=== PATIENT | male | born 1985 | race Caucasian/White ===

== ENCOUNTER 2023-06-16 10:00 | Outpatient (OUT) | payer OTHER, SELFPAY ==
--- NOTE | 2023-06-16 | VEIN_ITS ---
Patient: WILL ANDERSON Exam Date: 06/16/2023 : 1985 Gender:M Ordering : DR CROW PRINCE M.D. Admission #: [id number] Family : Order #: [id number] CLICK HERE TO VIEW EXAM RADIOLOGY REPORT PROCEDURE: VC EXT VENOUS REFLUX SYL LMTD COMPARISON: None. INDICATIONS: Pain due to varicose veins of bilateral legs I83.813 TECHNIQUE: Duplex imaging of the lower extremity to assess the deep and superficial venous system for the presence of deep or superficial venous incompetence and to document the location and severity of disease. The study includes evaluation of the great saphenous vein (GSV), anterior accessory saphenous vein (AASV) and small saphenous vein (SSV). Patient scanned in reverse Trendelenburg and standing. FINDINGS: RIGHT LOWER EXTREMITY: Saphenofemoral Junction Reflux: Yes 8.5mm 3.7 sec GSV: Diam (mm) Reflux/ Time (sec) Proximal Thigh 6.6 Yes 3.3 Mid Thigh 5.2 Yes 2.2 Distal Thigh 5.0 Yes 0.9 Prox Calf 2.9 Yes 1.3 Mid Calf 2.8 Yes 0.9 Saphenopopliteal Junction Reflux: 3.6mm Yes 0.8 SSV: Proximal Calf 3.0 No Mid Calf 1.9 Yes 0.9 AASV: Not present Thrombi: No acute or chronic thrombus visualized Compressibility: Normal Flow: Normal Preforator: Dist/med calf 2.6mm with 0s reflux. Mid/lat calf 3.5mm with 0.9s reflux Tech Note: Incompetent SFJ and GSV. Patent varicose vein prox/med calf 3.6mm with 1.0s reflux. Patent varicose vein mid/med thigh 3.1mm with 0.9s reflux. Patent varicose vein mid/med calf 3.1mm with 0s reflux. LEFT LOWER EXTREMITY: Saphenofemoral Junction Reflux: No 5.7 mm 0.5 sec GSV: Diam (mm) Reflux/Time (sec) Proximal Thigh 5.5 Yes 1.2 Mid Thigh 2.9 No Distal Thigh 3.5 Yes 0.7 Prox Calf 3.1 No Mid Calf 2.0 Yes 0.6 Saphenopopliteal Junction Relux: 2.1 mm Yes 1.4 SSV: Proximal Calf 1.4 No Mid Calf 1.4 No AASV: Not present Thrombi: No acute or chronic thrombus visualized Compressibility: Normal Flow: Normal Spreader: Dist/med calf 2.0mm with 0s reflux. Tech Note: Incompetent SFJ and GSV. Patent varicose vein mid/med calf 1.7mm with 1.2s reflux. Patent varicose vein mid/med thigh 2.8mm with 1.2s reflux. Patent varicose vein 3.1mm with 0s reflux. CONCLUSION: 1. Moderate right great saphenous vein venous insufficiency with dilatation and saphenofemoral junction reflux 2. Incompetent right lateral calf commercial title examiner vein with associated ulceration 3. Mild left great saphenous vein venous insufficiency without dilatation 4. Mild right small saphenous vein venous insufficiency without dilatation 5. Right leg incompetent varicose veins Dictated by: Crow Prince MD on 06/16/2023 at 15:11 Approved by: Crow Prince MD on 06/16/2023 at 15:18
--- NOTE | 2023-06-16 | VEIN_ITS ---
Patient: WILL ANDERSON Exam Date: 06/16/2023 : 1985 Gender:M Ordering : DR CROW PRINCE M.D. Admission #: [id number] Family : Order #: [id number] CLICK HERE TO VIEW EXAM RADIOLOGY REPORT PROCEDURE: [facility] COMPREHENSIVE VEIN CENTER - OFFICE VISIT INITIAL COMPARISON: None. PROGRESS NOTES: 37-year-old male who presents with a 2 year history of lower extremity pain swelling and varicose veins. The patient has had multiple episodes of cellulitis with development of a nonhealing ulcer approximately 10 months ago along the lateral right lower leg. The patient has been seen in the wound clinic for approximately 5 months with no significant improvement in the wound. The patient complains of subcutaneous edema and throbbing heaviness exacerbated by prolonged sitting and standing, partially relieved by rest, leg elevation and compression stockings which she has worn for approximately 6 months. The patient denies any signs and symptoms to suggest arterial ischemia. The patient describes a family history significant for varicose veins in his mother. Type 2 diabetes in his father. The patient has a past medical history significant for alcohol abuse, discontinuing 2 years ago. The patient quit smoking 15 years ago. No current illicit drug use. The patient currently has significant liver disease having been diagnosed with cirrhosis by biopsy. The patient is currently seen by a leather products supervisor/hepatology in [place]. No history of deep venous thrombus or pulmonary embolus. See separate history and physical for medication list. No prior treatment for varicose or spider veins. Nursing notes were reviewed. After history and physical exam I discussed at length the pathophysiology of venous hypertension and possible treatments, therapies and strategies available. We discussed at length the importance of elevating the lower extremities above the level of the heart, increased physical activity and compression stocking use. I discussed with the patient that his swelling was likely multifactorial and related to his liver disease possible lymphedema as well as venous disease being a contributing factor. I am hopeful that we will have good healing of his ulcer related to in associated incompetent perforating vein. Intravenous laser ablation and micro foam chemical ablation were discussed. Risks benefits and alternatives were discussed in the patient's questions were answered Ultrasound venous reflux study performed the same day was discussed at length with the patient. The report demonstrates moderate right great saphenous vein reflux and dairy science teacher vein. PHYSICAL EXAM: The right leg demonstrates pitting edema, 1 cm full thickness ulcer lateral mid right calf. Extensive hemosiderin staining. Scattered varicose veins. The left leg demonstrates mild subcutaneous edema and hemosiderin staining. Both thighs, legs and feet were symmetrically warm to the touch. Good posterior tibial and dorsalis pedis pulses were present bilaterally. VEIN/VC Facility EST Comprehensive IMPRESSION: 1. Moderate right great saphenous vein venous insufficiency with dilatation 2. Moderate right lower extremity varicose veins 3. Moderate right and mild left lower extremity subcutaneous edema 4. No definite flow significant arterial disease 5. CEAP: C6, Ep, Asp, Pr PLAN: 1. Endovenous laser ablation right great saphenous vein followed by right at incompetent dairy science teacher vein 2. Micro foam chemical ablation right leg incompetent varicose veins 3. Long-term use of bilateral knee high 4. 20-30 mm compression stockings 5. Elevated legs and increased physical activity for symptomatic relief Nurse notes, history and physical were reviewed and confirmed, see attached forms. The nurse was present throughout the physical exam and consultation Dictated by: Crow Prince MD on 06/16/2023 at 15:19 Approved by: Crow Prince MD on 06/16/2023 at 15:41
== END 2023-06-16 10:01 | disposition home or self-care (01) ==
LOC: VC 10:00
PROVIDERS: PCP Radiology Diagnostic Radiology; Visit Provider Radiology Diagnostic Radiology
DX: I83.813 Varicose veins of bilateral lower extremities with pain (principal)
CPT/HCPCS: 93970; G0463

== ENCOUNTER 2023-07-08 08:07 | Outpatient (OUT) | payer OTHER, SELFPAY ==
--- NOTE | 2023-07-08 | VEIN_ITS ---
[address] [address] Patient Name: WILL ANDERSON MRN: [id number] date: 1985 Sex: M Assigned Patient Location: Current Patient Location: Accession/Order Number: [id number] Exam Date: 07/08/2023 08:09 Report Date: 07/08/2023 09:35 At the request of: JOHN ANDREA Procedure: VC Endovenous Ablation 1VeinRT EXAMINATION: VC Endovenous Ablation 1VeinRT HISTORY: Pain due to varicose veins of bilateral legs I83.813 COMPARISON: No relevant comparison available. TECHNIQUE: The risks and benefits of the procedure had been previously discussed, and were rediscussed at length. Informed written consent was obtained. Felice Collazo and Marlo Foster assisted. Time out procedure was performed. The right lower extremity was prepared and draped in the usual sterile fashion to allow knee flexion in the sterile field. Duplex ultrasound probe was draped in a sterile cover, sterile transmission gel was used. Venous mapping was performed with the areas of dilation and large tributaries marked. The total length was 57 cm from the entry 15 cm above the medial malleolus to 3 cm below the saphenofemoral junction. The diameter of the greater saphenous vein ranged from 4-7 mm. A 30 gauge needle and 1% buffered lidocaine was used to anesthetize the entry site. A 4 mm incision was made with a scalpel and the saphenous vein was entered percutaneously under direct ultrasound guidance with a micropuncture set, a single stick was successful in gaining access. A micro-guide wire was inserted and the needle removed. A micro-set including a dilator was inserted over the microwire and the needle and dilator were removed. A 0.018 guide wire was inserted through the micro-set and threaded through the saphenous vein to the saphenofemoral junction. The dilator was removed and an introducer sheath was inserted over the wire until the end of the sheath entered the saphenofemoral junction. The dilator and wire were removed and the 600 micron fiber was introduced and placed and positioned so that it extended beyond the sheath and was 3 cm peripheral to the saphenofemoral femoral junction. Final position of the fiber was determined by ultrasound guidance and duplex imaging. Tumescent anesthetic was delivered by ultrasound guidance. 425 cc of fluid was delivered along the entire course of the saphenous vein. The solution consisted of 1000 cc of normal saline with 40 mL of 1% lidocaine and 20 mL of sodium bicarbonate. A final positioning check was made. The energy source was turned on by means of the foot pedal and the fiber and sheath were withdrawn. The total number of Joules delivered was 3133. The laser was active for 392 seconds under continuous pulse, average laser use of 8 J. Laser start time 9:15 AM 07/08/23. Laser stop time 9:27 AM 07/08/23. A duplex ultrasound revealed compressibility and flow at the saphenofemoral junction immediately after the procedure. Hemostasis at the access site was achieved. The skin incision of the saphenous vein was closed with a 4 x 4. A compression stocking was applied. Postop instructions were given. A follow up appointment was recommended and scheduled. The patient tolerated the procedure well and was discharged in good condition . VEIN/VC Endovenous Ablation 1VeinRT IMPRESSION: Technically successful endovenous laser ablation of the right great saphenous vein Electronically authenticated by: JOHN ANDREA Date: 07/08/2023 09:35
[2023-07-08] MEDS: 0.9 % SODIUM CHLORIDE 500 ML, LIDOCAINE HCL 20 ML, SODIUM BICARBONATE 10 MEQ INJ (08:10)
[2023-07-08] MEDS: LIDOCAINE HCL 1% 100 MG/10 ML MDV INJ (08:10)
== END 2023-07-08 08:08 | disposition home or self-care (01) ==
LOC: VC 08:07
PROVIDERS: PCP Radiology Diagnostic Radiology; Visit Provider Radiology Diagnostic Radiology
DX: I83.813 Varicose veins of bilateral lower extremities with pain (principal)
CPT/HCPCS: 36478

== ENCOUNTER 2023-07-14 09:26 | Outpatient (OUT) | payer OTHER, SELFPAY ==
--- NOTE | 2023-07-14 09:27 | VEIN_ITS ---
Patient: WILL ANDERSON Exam Date: 07/14/2023 : 1985 Gender:M Ordering : DR CROW PRINCE M.D. Admission #: [id number] Family : Order #: [id number] CLICK HERE TO VIEW EXAM RADIOLOGY REPORT PROCEDURE: [facility] FACILITY EST LMTD VEIN CENTER - OFFICE VISIT FOLLOW UP COMPARISON: None. PROGRESS NOTES: The patient reports severe pain related to the use of the compression stocking following intravenous laser ablation right great saphenous vein the otherwise not have pain once he the compression stocking. The patient did not take oral analgesics. The patient did have concern over low potassium and asked me to prescribe potassium tablets, in light of me not being as primary caregiver or involved in his liver disease, I told him that needed to consult with his primary care physician or his reception for treatment and evaluation. 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 Physical exam demonstrates no areas of bruising. Thrombosed right great saphenous vein can be partially palpated. Significant edema below the knee remains period Review of the ultrasound performed the same day demonstrates occlusive thrombus extending throughout the treated right great saphenous vein with heat induced thrombus 1.7 cm from the saphenofemoral junction. The patient expressed a desire to proceed with treatment of incompetent right perforating vein with a corresponding nonhealing venous stasis ulceration. The patient will schedule when it is convenient for him. VEIN/VC Facility EST LMTD IMPRESSION: 1. Successful ablation of the right great saphenous vein 2. Persistent incompetent right leg perforating vein. PLAN: Intravenous laser ablation right leg incompetent perforating vein Nurse notes, history and physical were reviewed and confirmed, see attached forms. The nurse was present throughout the physical exam and consultation Dictated by: Crow Prince MD on 07/14/2023 at 10:35 Approved by: Crow Prince MD on 07/14/2023 at 10:44
--- NOTE | 2023-07-14 09:27 | VEIN_ITS ---
Patient: WILL ANDERSON Exam Date: 07/14/2023 : 1985 Gender:M Ordering : DR CROW PRINCE M.D. Admission #: [id number] Family : Order #: [id number] CLICK HERE TO VIEW EXAM RADIOLOGY REPORT PROCEDURE: VC EXT VENOUS RT LMTD COMPARISON: None. INDICATIONS: I80.01 Phlebitis of superficial veins of rt lower extremity TECHNIQUE: Lower extremity fernandez scale and Duplex Doppler evaluation of the deep venous system from the inguinal ligament through the calf veins. FINDINGS: REGION: Right lower extremity. THROMBI: Negative for DVT. Heat induced thrombus is visualized 1.7 cm from the SFJ. The heat induced thrombus extends from groin to proximal calf. COMPRESSIBILITY: Non-compressible segments corresponding to thrombus. FLOW: Absent flow corresponding to thrombus CONCLUSION: Post ablation occlusion of the right great saphenous vein with heat induced thrombus 1.7 cm from the saphenofemoral junction Dictated by: Crow Prince MD on 07/14/2023 at 09:46 Approved by: Crow Prince MD on 07/14/2023 at 09:47
== END 2023-07-14 09:27 | disposition home or self-care (01) ==
LOC: VC 09:26
PROVIDERS: PCP Radiology Diagnostic Radiology; Visit Provider Radiology Diagnostic Radiology
DX: I80.01 Phlebitis and thrombophlebitis of superficial vessels of right lower extremity (principal)
CPT/HCPCS: 93971; G0463

== ENCOUNTER 2023-07-28 08:26 | Outpatient (OUT) | payer OTHER, SELFPAY ==
--- NOTE | 2023-07-28 08:28 | VEIN_ITS ---
[address] [address] Patient Name: WILL ANDERSON MRN: [id number] date: 1985 Sex: M Assigned Patient Location: Current Patient Location: Accession/Order Number: [id number] Exam Date: 07/28/2023 08:30 Report Date: 07/28/2023 10:07 At the request of: JOHN ANDREA Procedure: VC Endovenous Perf Ablation RT EXAMINATION: VC Endovenous Perf Ablation RT COMPARISON: INDICATIONS: I83.813 Painful varicose veins of bilat lower extremities OPERATIVE REPORT: Diagnosis: Superficial venous reflux, incompetent perforating veins Procedure: Endovenous laser ablation of the right transfer operator(s) Procedure: The patient was positioned supine on the table and the leg was prepped and draped to allow for visualization during venous access. A sterile cover was draped over a 16 mhz ultrasound probe. Venous mapping was performed prior to the procedure noting location and size of vessel(s). Switchboard Receptionist vein 1: Mid lateral lower right leg. The diameter of the vein ranged from 3.5 mm's below the muscular fascia to 3.5 mm's at the entry point. Using a 30 gauge needle the entry site was anesthetized with 2 cc of 1% buffered lidocaine. Access was gained percutaneously, with a 21-gauge needle, into the transfer operator vein under ultrasound guidance. The needle was advanced into the desired position and the pre-measured 400-micron fiber was then inserted into the needle and locked in place. The position of the fiber was imaged with ultrasound guidance. The fiber tip was visualized to be 10 mm from the deep vessel. An anesthetic solution of 8 cc 1% buffered lidocaine was delivered along the course of the vein under ultrasound guidance using a syringe. A final positioning check of the laser fiber tip was performed. The laser was activated by means of a foot-pedal and the fiber and needle were withdrawn together in accordance to the desired joules per treatment area/spot weld. 3 areas/spot welds were performed, and the total number of joules delivered was 187. The total time of energy delivery was 23 seconds. A duplex ultrasound revealed compressibility and flow of the deep system immediately after the procedure. Hemostasis of the access site was achieved and dressed. A 20-30 mm compression stocking over coban was placed on the treated leg. Post-Op instructions were given, and a follow-up appointment was made. CONCLUSION: 1. Technically successful endovenous laser ablation of a mid lateral right lower leg transfer operator vein. Electronically authenticated by: MARGARET WEEKS Date: 07/28/2023 10:07
[2023-07-28] MEDS: LIDOCAINE HCL 20 ML, SODIUM BICARBONATE 2 MEQ INJ (08:54)
== END 2023-07-28 08:27 | disposition home or self-care (01) ==
LOC: VC 08:27
PROVIDERS: PCP Radiology Diagnostic Radiology; Visit Provider Radiology Diagnostic Radiology
DX: I83.813 Varicose veins of bilateral lower extremities with pain (principal)
CPT/HCPCS: 36478

== ENCOUNTER 2023-08-12 07:58 | Outpatient (OUT) | payer OTHER, SELFPAY ==
--- NOTE | 2023-08-12 07:59 | VEIN_ITS ---
Patient Name: WILL ANDERSON MR#: [id number] : 1985 Exam Date: 08/12/2023 Ordering Doctor: DR CROW PRINCE M.D. RADIOLOGY REPORT PROCEDURE: VC EXT VENOUS RT LMTD COMPARISON: VC EXT VENOUS RT LMTD, 07/14/2023. INDICATIONS: I80.01 Phlebitis of superficial veins of rt lower extremity TECHNIQUE: Lower extremity fernandez scale and Duplex Doppler evaluation of the deep venous system from the inguinal ligament through the calf veins. FINDINGS: REGION: Right lower extremity. THROMBI: Negative for DVT. Heat induced thrombus visualized at mid/lat dry end tester. COMPRESSIBILITY: Non-compressible segments corresponding to thrombus FLOW: Areas of absent flow corresponding to thrombus CONCLUSION: Post ablation occlusion of the treated incompetent right leg dry end tester vein Dictated by: Crow Prince MD on 08/12/2023 at 08:23 Approved by: Crow Prince MD on 08/12/2023 at 08:24
--- NOTE | 2023-08-12 07:59 | VEIN_ITS ---
Patient Name: WILL ANDERSON MR#: [id number] : 1985 Exam Date: 08/12/2023 Ordering Doctor: DR CROW PRINCE M.D. RADIOLOGY REPORT PROCEDURE: [facility] EST LMTD VEIN CENTER - OFFICE VISIT FOLLOW UP [facility] PROGRESS NOTES: The patient reports no significant problems following intravenous laser ablation of incompetent right perforating vein. The patient has been discharged from the [facility] wound [place] for unknown reasons. He has not schedule a follow-up appointment with the [facility] as directed. The patient also has not followed up with a hepatology for his liver failure. The patient does complain of left medial calf pain. The patient has attempted to wear his compression stockings limited by his active right leg ulcer. The patient has followed our recommendations to walk 20-30 minutes once or twice per day since the procedure. Physical exam demonstrates progression of his right leg ulceration now approximately 1.5 cm in diameter and 8 mm deep, this is significantly progressed from the prior exam. Additionally identified is a raised area measuring 2 cm along the medial left mid calf with surrounding erythema. This area appears flocculent and abscess is suspected Review of the ultrasound performed the same day demonstrates occlusive thrombus extending throughout the treated right leg incompetent perforating vein. No deep vein thrombus. At this time the patient's treatments are suspended. I discussed at length with the patient that he needed to follow-up with hepatology as directed by his primary care physician for his liver failure. Given the progression his right leg ulceration, and his new suspected left leg abscess, we arranged for him to be seen by the [facility] wound Center at 1 o'clock on August 12, 2023. This was discussed at length with the patient. I informed the patient that if he did not make his wound Center appointment he should consider going to the emergency room for evaluation of his abscess which is outside the scope of our care for incision and drainage. VEIN/[facility] EST LMTD IMPRESSION: 1. Successful ablation of right leg incompetent perforating vein 2. New left mid medial calf abscess is suspected likely requiring antibiotics and possibly incision and drainage 3. Progression in severity of a right leg ulceration. PLAN: Follow-up with the [facility] wound care center August 12, 2023 at 1 o'clock Nurse notes, history and physical were reviewed and confirmed, see attached forms. The nurse was present throughout the physical exam and consultation Dictated by: Crow Prince MD on 08/12/2023 at 09:15 Approved by: Crow Prince MD on 08/12/2023 at 09:20
--- OUTSIDE RECORDS SUMMARY | 2023-08-26 01:52 | XMS_ITS | CCD ---
Author Name Unknown Address [address] [place] [address] Organization [facility] Care Team Providers Care Sustainability Project Coordinator Name Role Phone Link, Colby Nicholson Primary Care Physician Unavailable Primary Care Provider Unavailabl e Unavailable Primary Care Provider Unavailabl e Unavailable Primary Care Provider Unavailabl Theo Fernandez MD Primary Care Provider Abbey Alvarez MD Unavailable Maria C Day Unavailable Theo Burks MD Primary Care Provider Abbey Alvarez MD Unavailable Gricelda SILVESTRE, Maria C Unavailable [phone] Shamar MULTANI, Marcello Unavailable Maria C Day Unavailable THEO BURKS Primary Care Physician Unavaila ble NONE, XXXX Primary Care Physician Unavailab Jarrod Nettles Unavailable Lisa Lopez Primary Care Physician CLAIRE JOHNSON Attending UnavailCLAIRE Flores Admitting Unavailabl e THEO BURKS Primary Care Unavailable PROVIDER, UNKNOWN Admitting Unavailable PROVIDER, UNKNOWN Attending Unavailable THEO BURKS Primary Care Unavailable PROVIDER, UNKNOWN Attending Unavailable MARIA C FAUSTIN Referring Unavailable PROVIDER, UNKNOWN Admitting Unavailable PROVIDER, UNKNOWN Attending Unavailable PROVIDER, UNKNOWN Admitting Unavailable THEO BURKS Primary Care Unavailable PROVIDER, UNKNOWN Attending Unavailable PROVIDER, UNKNOWN Admitting Unavailable THEO BURKS Primary Care Unavailable PROVIDER, UNKNOWN Attending Unavailable PROVIDER, UNKNOWN Admitting Unavailable BURKS, THEO Primary Care Unavailable PROVIDER, UNKNOWN Attending Unavailable PROVIDER, UNKNOWN Admitting Unavailable PARVIZ BURKSHERINE Primary Care Unavailable PROVIDER, UNKNOWN Admitting Unavailable PARVIZ BURKSHERINE Primary Care Unavailable ANN-MARIE BRAY Attending Unavailable PROVIDER, UNKNOWN Attending Unavailable BLACK, TONJEH Referring Unavailable PROVIDER, UNKNOWN Admitting Unavailable PROVIDER, UNKNOWN Attending Unavailable BLACK, TONJEH Referring Unavailable PROVIDER, UNKNOWN Admitting Unavailable PROVIDER, UNKNOWN Attending Unavailable PROVIDER, UNKNOWN Admitting Unavailable PROVIDER, UNKNOWN Attending Unavailable PROVIDER, UNKNOWN Admitting Unavailable PARVIZ BURKSHERINE Primary Care Unavailable PROVIDER, UNKNOWN Attending Unavailable PROVIDER, UNKNOWN Admitting Unavailable CHAD THEO Primary Care Unavailable PROVIDER, UNKNOWN Attending Unavailable PATIENT, SELF Referring Unavailable PARVIZ BURKSHERINE Primary Care Unavailable PROVIDER, UNKNOWN Admitting Unavailable PROVIDER, UNKNOWN Attending Unavailable PROVIDER, UNKNOWN Admitting Unavailable PROVIDER, UNKNOWN Attending Unavailable BLACK, TONJEH Referring Unavailable PROVIDER, UNKNOWN Admitting Unavailable PROVIDER, UNKNOWN Attending Unavailable PROVIDER, UNKNOWN Admitting Unavailable PARVIZ BURKSHERINE Primary Care Unavailable PROVIDER, UNKNOWN Attending Unavailable BLACK, TONJEH Referring Unavailable PROVIDER, UNKNOWN Admitting Unavailable PARVIZ BURKSHERINE Primary Care Unavailable BLACK, TONJEH Referring Unavailable PROVIDER, UNKNOWN Admitting Unavailable PARVIZ BURKSHERINE Primary Care Unavailable PROVIDER, UNKNOWN Attending Unavailable PROVIDER, UNKNOWN Admitting Unavailable PARVIZ BURKSHERINE Primary Care Unavailable PROVIDER, UNKNOWN Attending Unavailable PROVIDER, UNKNOWN Attending Unavailable MARIA C FAUSTIN Referring Unavailable PROVIDER, UNKNOWN Admitting Unavailable PROVIDER, UNKNOWN Admitting Unavailable PROVIDER, UNKNOWN Attending Unavailable BLACK, TONJEH Referring Unavailable PARVIZ BURKSHERINE Primary Care Unavailable PROVIDER, UNKNOWN Attending Unavailable BLACK, TONJEH Referring Unavailable PROVIDER, UNKNOWN Admitting Unavailable PROVIDER, UNKNOWN Attending Unavailable BLACK, TONJEH Referring Unavailable PARVIZ BURKSHERINE Primary Care Unavailable PROVIDER, UNKNOWN Admitting Unavailable PROVIDER, UNKNOWN Attending Unavailable BLACK, TONJEH Referring Unavailable PROVIDER, UNKNOWN Admitting Unavailable PARVIZ BURKSHERINE Primary Care Unavailable REFERRAL, SELF Referring Unavailable Teddy Hitchcock Attending Unavailable Lisa Lopez Referring Unavailable Lisa Lopez Attending Unavailable MoTeddy abad Attending Unavailable Mourany, Teddy Rodarte Referring Unavailable Mourandamaso, Teddy Rodarte Admitting Unavailable Mopollo, Teddy Rodarte Attending Unavailable Mourandamaso, Teddy Rodarte Attending Unavailable Mopollo, Teddy Trinidad. Attending Unavailable Mourany, Teddy Trinidad. Attending Unavailable Mourany, Teddy Rodarte Attending Unavailable Lisa Lopez Admitting Unavailable Lisa Lopez Attending Unavailable Lisa Lopez Attending Unavailable Lisa Lopez Attending Unavailable Teddy Hitchcock Attending Unavailable Teddy Hitchcock Attending Unavailable Teddy Hitchcock Attending Unavailable Martin Reese Attending Unavailable Teddy Luna Attending Unavailable Brent Sanches Attending Unavailable Lisa Lopez Referring Unavailable Mario Evans Attending Unavaila Teddy Goddard Attending Unavailable Teddy Hitchcock Attending Unavailable Teddy Hitchcock Attending Unavailable Teddy Hitchcock Attending Unavailable Teddy Hitchcock Attending Unavailable Teddy Hitchcock Attending Unavailable Teddy Hitchcock Attending Unavailable Teddy Hitchcock Attending Unavailable Allergies Allergy Classification Reported Allergen(s) Allergy Type Date of Onset Reaction(s) Facility (20 sources) Amoxicillin; Translations: [amoxicillin] Drug Allergy 8 Unknown (qualifier value) [facility] (20 sources) Penicillin; Translations: [penicillin] Drug Allergy unknown [facility] (1 source) Substance with penicillin structure and antibacterial mechanism of action (substance) Drug allergy Unknown [employer] Other Medications Current Medications Medication Drug Class(es) Dates Sig (Normalized) Sig (Original) cephalexin 500 mg oral capsule (8 sources) Cephalosporin Antibacterial Start: 08-25-2022 End: 09-01-2022 take 1 capsule by mouth four times daily cephALEXin (KEFLEX) 500 MG capsule Indications: Right leg swelling , Cellulitis, unspecified cellulitis site Take 1 Capsule by mouth 4 times daily for 7 days. 28 Capsule 0 08/25/2022 09/01/2022 Active Start: 08-15-2022 End: 08-22-2022 take 1 capsule by mouth four times daily cephALEXin (KEFLEX) 500 MG capsule Take 1 Capsule by mouth 4 times daily for 7 days. 28 Capsule 0 08/15/2022 08/22/2022 Active clindamycin 300 mg oral capsule (20 sources) Lincosamide Antibacterial Start: 02-18-2023 End: 02-25-2023 take 1 capsule by mouth every six hours clindamycin 300 mg oral cap 300 mg = 1 cap(s), Oral, q6hr, X 7 day(s), # 28 cap(s), Refills(s) 0, Pharmacy: [facility] #[id number], 170, cm, 02/18/23 7:51:00 EDT, Height/Length Dosing, 77, kg, 02/18/23 7:51:00 EDT, Weight Dosing Start Date: 02/18/23 Stop Date: 02/25/23 Status: Ordered Start: 02-17-2022 take 2 capsules by m out four times daily clindamycin 150 mg Cap 300 mg = 2 cap(s), Oral, QID, # 56 cap(s), Refills(s) 0, Pharmacy: [id number] [address], 170.2, cm, 02/17/22 12:34:00 EDT, Height/Length Dosing, 78, kg, 02/17/22 12:34:00 EDT, Weight Dosing Start Date: 02/17/22 Status: Ordered Start: 02-17-2022 End: 08-15-2022 clindamycin (CLEOCIN) 150 MG capsule Take by mouth. 0 02/17/2022 08/15/2022 Discontinued (Therapy completed) diclofenac sodium 0.01 mg/mg topical gel (20 sources) Nonsteroidal Anti-inflammatory Drug Start: 12-16-2022 diclofenac (VOLTAREN) 1 % GEL topical gel Indications: Rib pain Apply 4 g topically 4 times daily as needed for Pain (in leg joints). 1 Tube 2 12/16/2022 Active Start: 01-15-2022 End: 04-17-2022 diclofenac (VOLTAREN) 1 % GE L topical gel Apply 2 g topically 4 times daily. 50 g 0 01/17/2022 04/17/2022 Active doxycycline hyclate 100 mg oral capsule (1 source) Tetracycline-class Drug Start: 10-01-2022 End: 10-11-2022 take 1 capsule by mouth twice daily doxycycline (VIBRAMYCIN) 100 MG capsule Indications: Cellulitis, unspecified cellulitis site Take 1 Capsule by mouth 2 times daily for 10 days. 20 Capsule 0 10/01/2022 10/11/2022 Active esomeprazole 40 mg delayed release oral capsule (20 sources) Proton Pump Inhibitor Start: 01-17-2022 take 1 capsule by mouth once daily 30 minutes before breakfast esomeprazole (NEXIUM) 40 MG capsule Take 1 Capsule by mouth daily (30 minutes before breakfast). 28 Capsule 1 01/17/2022 Active Start: 01-15-2022 Start: 01-08-2022 End: 01-15-2022 take 40 mg intravenously twice daily 40 mg, Intravenous Push, 2 TIMES DAILY, First dose (after last modification) on Thu01/10/22 at 2100, Until Discontinued famotidine 20 mg oral tablet (20 sources) Histamine-2 Receptor Antagonist Start: 10-27-2022 take 1 tablet by mouth twice daily famotidine (Pepcid) 20 MG tablet Take 1 Tablet by mouth 2 times daily. 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) take 1 tablet by mouth once daily 90 Tablet 3 07/13/2023 Active Start: 01-08-2022 End: 01-15-2022 take 1 mg intravenously once daily 1 mg, Intravenous P ush, DAILY, First dose on Thu01/08/22 at 1430, Until Discontinued furosemide 20 mg oral tablet (20 sources) Loop Diuretic Start: 07-24-2023 take 1 tablet by mouth once daily furosemide 20 mg Tab 20 mg = 1 tab(s), Oral, Daily, Refills(s) 0 Start Date: 07/24/23 Status: Ordered Start: 08-25-2022 End: 01-25-2023 take 1 tablet by mouth once daily furosemide (LASIX) 20 MG tablet take 1 tablet by mouth once daily 90 Tablet 3 12/05/2022 Active gabapentin 300 mg oral capsule (3 sources) Anti-epileptic Agent Start: 07-24-2023 take 1 capsule by mouth twice daily gabapentin 300 mg Cap 300 mg = 1 cap(s), Oral, BID, # 60 cap(s), Refills(s) 0, Pharmacy: [facility] #[id number], 170, cm, 07/24/23 7:59:00 EST, Height/Length Dosing, 73.5, kg, 07/24/23 7:59:00 EST, Weight Dosing Start Date: 07/24/23 Status: Ordered hydrOXYzine pamoate 25 mg oral capsule (20 sources) Antihistamine Start: 07-24-2023 take 1 capsule by mouth three times daily as needed hydrOXYzine pamoate 25 mg Cap 25 mg = 1 cap(s), Oral, TID, PRN for itching, # 40 cap(s), Refills(s) 0 Start Date: 07/24/23 Status: Ordered Start: 12-16-2022 End: 02-09-2023 take 1 capsule by mouth three times daily as needed hydrOXYzine pamoate (Vistaril) 25 MG capsule Indications: Alcoholic cirrhosis of liver without ascites (HCC) Take 1 Capsule by mouth 3 times daily as needed for Itching. 90 Capsule 3 02/09/2023 Active hydrOXYzine HCl Active lactulose 667 mg/ml oral solution (20 sources) Osmotic Laxative Start: 07-24-2023 take 20 g by mouth four times daily lactulose 10 g/15 mL Oral Syrup 20 gm = 30 mL, Oral, QID, # 480 mL, Refills(s) 0 Start Date: 07/24/23 Status: Ordered Start: 04-24-2023 lactulose 10 g /15 mL oral solution Indications: Iron deficiency anemia, unspecified iron deficiency anemia type , Alcoholic cirrhosis, unspecified whether ascites present (HCC) , Alcoholic cirrhosis of liver without ascites (HCC) take 30 milliliter by mouth four times a day if needed -TITRATE TO 2 TO 3 BOWEL MOVEMENTS/DAY 946 mL 3 04/24/2023 Active Start: 08-14-2022 End: 04-24-2023 lactulose 20 g/30 mL SOLN or al solution Indications: Iron deficiency anemia, unspecified iron deficiency anemia type , Alcoholic cirrhosis, unspecified whether ascites present (HCC) , Alcoholic cirrhosis of liver without ascites (HCC) Take 30 mL by mouth 4 times daily as needed. Titrate 2-3 bowel movements/day 946 mL 3 02/09/2023 04/24/2023 Discontinued Start: 01-17-2022 Start: 01-15-2022 End: 08-14-2022 take 30 mL by mouth twice daily lactulose 20 g/30 mL SOLN oral solution Indications: Alcoholic cirrhosis of liver without ascites (HCC) Take 30 mL by mouth 2 times daily. 450 mL 3 08/08/2022 08/14/2022 Discontinued (Dose adjustment) Start: 01-09-2022 End: 01-15-2022 20 g, NG Tube, 2 TIMES DAILY , First dose (after last modification) on Thu01/09/22 at 2100, Until Discontinued Start: 01-08-2022 End: 01-09-2022 20 g, Oral, 3 TIMES DAILY, F irst dose on Thu01/08/22 at 1430, Until Discontinued Lactulose 10 GM/ 15ML Oral for 7 Days Active lidocaine 0.05 mg/mg medicated patch (20 sources) Antiarrhythmic, Amide Local Anesthetic Start: 12-15-2022 End: 03-06-2023 apply 1 dose transdermal route every twenty-four hours lidocaine (LIDODERM) 5 % patch Indications: Rib pain Place 1 Patch on the skin every 24 hours. 10 Patch 3 03/06/2023 Active Milk thistle extract (3 sources) Start: 07-24-2023 take 1000 mg by mouth once daily Milk Thistle 1,000 mg, Oral, Daily, Refill(s) 0 Start Date: 07/24/23 Status: Ordered Misc DME Prescription (12 sources) Start: 07-24-2023 Misc DME Prescription See Instructions, LiquidIV hydration Start Date: 07/24/23 Status: Ordered Start: 07-24-2023 Misc DME Presc ription See Instructions, Collagen Matrix with ORC and Silver dressing Start Date: 07/24/23 Status: Ordered Start: 07-24-2023 Misc DME Presc ription See Instructions, Roe SAP Dressing 4 x 4 dressing Start Date: 07/24/23 Status: Ordered Start: 07-24-2023 Misc DME Presc ription See Instructions, Muscle & joint balm CBD 880mg Start Date: 07/24/23 Status: Ordered Misc Prescription (3 sources) Start: 07-24-2023 Misc Prescription Bee Venom, Daily Start Date: 07/24/23 Status: Ordered Multiple Vitamin (Tab-A-Scott) TABS (3 sources) Start: 07-13-2023 take 1 tablet by mouth once daily Multiple Vitamin (Tab-A-Scott) TABS 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 Apply thin layer to affected area. 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 120 Tablet 3 02/11/2022 03/13/2022 Discontinued (Dose adjustment) ondansetron 4 mg disintegrating oral tablet (20 sources) Serotonin-3 Receptor Antagonist Start: 02-12-2023 End: 07-13-2023 take 1 tablet by mouth every twelve hours as needed for nausea ondansetron (ZOFRAN-ODT) 4 MG disintegrating tablet Indications: Nausea Take 1 Tablet by mouth every 12 hours as needed for Nausea. Place 1 tablet under tongue as needed for nausea. 30 Tablet 0 07/14/2023 Active Start: 03-13-2022 End: 10-27-2022 take 1 tablet by mouth every twelve hours as needed for nausea ondansetron (ZOFRAN-ODT) 4 MG disintegrating tablet Indications: Nausea Take 1 Tablet by mouth every 12 hours as needed for Nausea. Place 1 tablet under tongue as needed for nausea. 30 Tablet 0 10/27/2022 Active Start: 01-14-2022 take 4 mg intravenou sly every four hours as needed 4 mg, Intravenous Push, EVERY 4 HOURS PRN, Starting on Thu01/14/22 at 0843, Until Discontinued, Vomiting, Nausea oxyCODONE hydrochloride 5 mg oral capsule (1 source) Opioid Agonist Start: 02-18-2023 End: 02-21-2023 take 1 capsule by mouth every six hours as needed for pain oxyCODONE 5 mg Cap 5 mg = 1 cap(s), Oral, q6hr, PRN for pain, X 3 day(s), # 15 cap(s), Refills(s) 0, Pharmacy: [facility] #[id number], 170, cm, 02/18/23 7:51:00 EDT, Height/Length Dosing, 77, kg, 02/18/23 7:51:00 EDT, Weight Dosing Start Date: 02/18/23 Stop Date: 02/21/23 Status: Ordered spironolactone 50 mg oral tablet (20 sources) Aldosterone Antagonist Start: 07-24-2023 take 1 tablet by mouth once daily spironolactone 50 mg Tab 50 mg = 1 tab(s), Oral, Daily, Refills(s) 0 Start Date: 07/24/23 Status: Ordered Start: 08-25-2022 End: 03-16-2023 take 1 tablet by mouth once daily spironolactone (Aldactone) 50 MG tablet Indications: Alcoholic cirrhosis of liver without ascites (HCC) Take 1 Tablet by mouth daily. 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 12 Tablet 3 04/23/2023 07/21/2023 Discontinued (Reorder (*won't e-cancel)) Start: 03-22-2023 End: 04-05-2023 Bactrim D.S. 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 30 Tablet 1 02/13/2022 Active Start: 01-17-2022 End: 03-18-2022 Start: 01-17-2022 End: 03-18-2022 take 1 tablet by mouth once daily sulfamethoxazole-trimethoprim 800-160 MG (BACTRIM DS) 800-160 MG per tablet Take 1 Tablet by mouth daily. 30 Tablet 1 01/17/2022 02/11/2022 Discontinued (Reorder (*won't e-cancel)) Tab-A-Scott oral tablet (3 sources) Start: 07-24-2023 take 1 tablet by mouth once daily Tab-A-Scott oral tablet 1 tab(s), Oral, Daily, Refill(s) 0 Start Date: 07/24/23 Status: Ordered thiamine 100 mg oral tablet (20 sources) Start: 01-16-2022 End: 05-06-2022 take 1 tablet by mouth once daily vitamin B-1 (THIAMINE) 100 MG tablet Indications: Alcoholic cirrhosis of liver without ascites (HCC) Take 1 Tablet by mouth daily. 90 Tablet 3 05/06/2022 Active Start: 01-08-2022 End: 01-15-2022 take 100 mg intravenously once daily 100 mg, Intravenous Push, DAILY, First dose on Thu01/08/22 at 1430, Until Discontinued Zofran ODT 4 mg Tab-Dis (18 sources) Start: 03-22-2023 take 1 tablet by mouth every eight hours as needed for nausea Zofran ODT 4 mg Tab-Dis 4 mg = 1 tab(s), Oral, q8hr, PRN Nausea/Vomiting, # 20 tab(s), Refills(s) 0, Pharmacy: [facility] #[id number], 170, cm, 03/22/23 20:14:00 EDT, Height/Length Dosing, 75.2, kg, 03/22/23 20:14:00 EDT, Weight Dosing Start Date: 03/22/23 Status: Ordered (1 source) Start: 01-17-2022 (3 sources) Start: 01-14-2022 End: 01-19-2022 2 mg, Intravenous, DAILY, 5 doses, First dose on Thu01/14/22 at 1400, Last dose on Thu01/18/22 at 0900, at 125 mL/hr Start: 01-09-2022 End: 01-10-2022 take 70 mg by mouth once daily 70 mg, Oral, DAILY, Fir st dose on Thu01/09/22 at 1900, Until Discontinued Start: 01-08-2022 End: 01-10-2022 10 mg, Intravenous, DAILY, 3 doses, First dose on Thu01/08/22 at 1530, Last dose on Thu01/10/22 at 0900 Completed/Discontinued Medications Medication Drug Class(es) Dates Sig (Normalized) Sig (Original) acetaminophen 32 mg/ml oral solution (1 source) Start: 01-10-2022 500 mg, Oral, EVERY 6 HOURS PRN, Starting on Thu01/10/22 at 2022, Until Discontinued, Mild Pain (pain score 1,2,3), Moderate Pain (pain score 4,5,6) acetaminophen 325 mg / oxyCODONE hydrochloride 5 mg oral tablet (1 source) Opioid Agonist Start: 01-16-2022 End: 01-16-2022 1 Tablet, Oral, ONCE, 1 dose, On Rachel 01/16/22 at 0030 amoxicillin 875 mg / clavulanate 125 mg oral tablet (7 sources) Penicillin-class Antibacterial Start: 08-16-2022 End: 08-26-2022 take 1 tablet by mouth twice daily amoxicillin-clavul anate (Augmentin) 875-125 MG per tablet Indications: Klebsiella pneumoniae infection Take 1 Tablet by mouth 2 times daily for 10 days. 20 Tablet 0 08/16/2022 08/25/2022 Discontinued (Therapy completed) calcium chloride 0.0014 meq/ml / potassium chloride 0.004 meq/ml / sodium chloride 0.103 meq/ml / sodium lactate 0.028 meq/ml injectable solution (1 source) Start: 01-08-2022 End: 01-14-2022 Intravenous, at 150 mL/hr, CONTINUOUS, Starting on Thu01/08/22 at 1830, Until Thu01/14/22 at 0832 cefTRIAXone 2000 mg injection (2 sources) Cephalosporin Antibacterial Start: 01-11-2022 End: 01-12-2022 2,000 mg, Intravenous, EVERY 24 HOURS ANTIBIOTIC, 2 doses, First dose (after last modification) on 01/11/22 at 1700, Last dose on 01/12/22 at 1700 Start: 01-08-2022 End: 01-11-2022 2,000 mg, Intravenous, EVERY 24 HOURS ANTIBIOTIC, First dose on Thu01/08/22 at 1500, Until Discontinued chlorhexidine gluconate 1.2 mg/ml mouthwash (11 sources) Start: 03-22-2008 End: 05-06-2022 chlorhexidine (PERIDEX) 0.12 % solution Indications: Open fracture of angle of jaw (HCC) Take by mouth. Take one capful of solution and place on provided syringe and rinse open area inside of mouth twice a day. 1 bottle 3 03/22/2008 05/06/2022 Discontinued (Therapy completed) 168 hr cloNIDine 0.10037 mg/hr transdermal system (1 source) Central alpha-2 Adrenergic Agonist Start: 01-09-2022 End: 01-17-2022 0.1 mg, Transdermal, EVERY 7 DAYS, First dose on Thu01/09/22 at 1400, Until Discontinued 100 ml dexmedetomidine 0.004 mg/ml injection (1 source) Central alpha-2 Adrenergic Agonist Start: 01-08-2022 End: 01-10-2022 take 3.4-23.5 mL intravenously every hour 0.2-1.4 mcg/kg/hr 67 kg (3.35-23.45 mL/hr, rounded to 3.4-23.5 mL/hr), Intravenous, CONTINUOUS, Starting on Thu01/08/22 at 2130, Until Thu01/10/22 at 1155 Drug or medicament (substance) (3 sources) Start: 01-10-2022 End: 01-15-2022 take 3.4-23.5 mL intravenously every hour 0.2-1.4 mcg/kg/hr 67 kg (3.35-23.45 mL/hr, rounded to 3.4-23.5 mL/hr), Intravenous, CONTINUOUS, Starting on Thu01/10/22 at 1200, Until Thu01/15/22 at 0959 Start: 01-09-2022 End: 01-13-2022 120 mL, NG Tube, 4 times mario ly ENAR, First dose on Thu01/09/22 at 1600, Until Discontinued Start: 01-09-2022 End: 01-15-2022 NG Tube, at 20-60 mL/hr, CON TINUOUS, Starting on Thu01/09/22 at 1400, Until Thu01/15/22 at 0952 Tube Feeding: No Meal Tray Tube feeding formula: Peptamen 1.5 1 ml haloperidol 5 mg/ml injection (1 source) Typical Antipsychotic Start: 01-08-2022 End: 01-08-2022 inject 1 dose by intramuscular injection once 5 mg, Intramuscular, ONCE, 1 dose, On Thu01/08/22 at 2230 ibuprofen 800 mg oral tablet (1 source) Nonsteroidal Anti-inflammatory Drug Start: 03-29-2008 End: 01-17-2022 insulin lispro 100 unt/ml injectable solution (2 sources) Insulin Analog Start: 01-17-2022 inject 1-7 [IU] by subcutaneous injection three times daily before mealtime 1-7 Units, Subcutaneous, 3 TIMES DAILY BEFORE MEALS, First dose on Thu01/17/22 at 0800, Until Discontinued Start: 01-13-2022 End: 01-17-2022 inject 1-7 [IU] by subcutaneous injection every six hours 1-7 Units, Subcutaneous, Every 6 hours, First dose (after last modification) on Thu01/13/22 at 2200, Until Discontinued LORazepam 0.5 mg oral tablet (6 sources) Benzodiazepine Start: 01-17-2022 take 0.5 mg by mouth every six hours as needed 0.5 mg, Oral, EVERY 6 HOURS PRN, Starting on Thu01/17/22 at 1435, Until Discontinued, Anxiety Start: 01-10-2022 End: 01-15-2022 2 mg, Intravenous Push, EVER Y 2 HOURS PRN, Starting on Thu01/10/22 at 1823, Until Thu01/15/22 at 0959, Anxiety, CIWA 9-12 and SBP greater than 165 mmHg and/or HR greater than 100 beats per minute, or CIWA 13 and above Start: 01-09-2022 End: 01-10-2022 take 1 mg intravenously every two hours as needed for anxiety 1 mg, Intravenous Push, EVERY 2 HOURS PRN, Starting on Thu01/09/22 at 1344, Until Thu01/10/22 at 1823, Anxiety, CIWA 9-12 and SBP greater than 165 mmHg and/or HR greater than 100 beats per minute, or CIWA 13 and above Start: 01-08-2022 End: 01-08-2022 take 1 dose intravenously once 2 mg, Intravenous Push, ONCE, 1 dose, On Thu01/08/22 at 2230 Start: 01-08-2022 End: 01-08-2022 take 1 dose intravenously once 2 mg, Intravenous Push, ONCE, 1 dose, On Thu01/08/22 at 2200 Start: 01-08-2022 End: 01-09-2022 2 mg, Oral, EVERY 2 HOURS PA N, Starting on Thu01/08/22 at 1755, Until Thu01/09/22 at 1346, Anxiety, CIWA 9-12 and SBP greater than 165 mmHg and/or HR greater than 100 beats per minute, or CIWA 13 and above 50 ml magnesium sulfate 40 mg/ml injection (1 source) Start: 01-10-2022 End: 05-06-2022 2 g (2,000 mg), Intravenous, ONCE, 1 dose, On Thu01/10/22 at 1900 metoclopramide 10 mg oral tablet (2 sources) Dopamine-2 Receptor Antagonist Start: 03-15-2008 End: 01-17-2022 Start: 03-15-2008 End: 01-17-2022 1 ml morphine sulfate 4 mg/ml cartridge (1 source) Opioid Agonist Start: 01-10-2022 End: 01-10-2022 take 1 dose intravenously once 2 mg, Intravenous Push, ONCE, 1 dose, On Thu01/10/22 at 2030 Multiple Vitamin (Multi-Vitamins) tablet (20 sources) Start: 05-06-2022 End: 07-13-2023 take 1 tablet by mouth once daily Multiple Vitamin (Multi-Vitamins) tablet 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 90 Tablet 3 05/06/2022 Active Start: 01-17-2022 End: 05-06-2022 take 1 tablet by mouth once daily Multiple Vitamin (Multi-Vitamins) tablet Take 1 Tablet by mouth daily. 30 Tablet 3 01/17/2022 05/06/2022 Discontinued (Reorder (*won't e-cancel)) Start: 01-17-2022 take 1 tablet by patricia th once daily Multiple Vitamin (Multi-Vitamins) tablet Take 1 Tablet by mouth daily. 30 Tablet 3 01/17/2022 Active nitrofurantoin, macrocrystals 25 mg / nitrofurantoin, monohydrate 75 mg oral capsule (6 sources) Nitrofuran Antibacterial Start: 08-15-2022 End: 08-25-2022 take 1 capsule by mouth twice daily nitrofurantoin monohydrate macrocrystal (MACROBID) 100 MG capsule Indications: Urinary tract infection without hematuria, site unspecified Take 1 Capsule by mouth 2 times daily for 10 days. 20 Capsule 0 08/15/2022 08/16/2022 Discontinued (Changing therapy) Potassium Chloride (20 sources) Start: 07-24-2023 take 1 tablet by mouth twice daily Potassium Chloride (Kgq-Iayu-Gwt M20) 20 mEq oral tablet, extended release 20 mEq = 1 tab(s), Oral, BID, # 30 tab(s), Refills(s) 3, [facility]: [id number], 170, cm, 07/24/23 7:59:00 EST, Height/Length Dosing, 73.5, kg, 07/24/23 7:59:00 EST, Weight Dosing Start Date: 07/24/23 Status: Ordered Start: 11-14-2022 take 1 tablet by [facility] once daily potassium chloride SA (K-DUR) 20 MEQ controlled release tablet Indications: Hypokalemia Take 1 Tablet by mouth daily. 10 Tablet 0 11/14/2022 Active Start: 01-15-2022 End: 01-15-2022 take 1 dose by mouth once 40 mEq, Oral, ONCE, 1 dose, On Thu01/15/22 at 0600 Start: 01-13-2022 End: 01-13-2022 40 mEq, G Tube, ONCE, 1 dose , On Thu01/13/22 at 0500 Start: 01-12-2022 End: 01-13-2022 take 1 dose by mouth once 40 mEq, Oral, ONCE, 1 dose, On Thu01/13/22 at 0700 Start: 01-12-2022 End: 01-12-2022 40 mEq, NG Tube, ONCE, 1 dos e, On 01/12/22 at 0430 prednisoLONE 3 mg/ml oral solution (1 source) Corticosteroid Start: 01-11-2022 take 70 mg by mouth once daily 70 mg, Oral, DAILY, First dose on 01/11/22 at 0900, Until Discontinued predniSONE 10 mg oral tablet (11 sources) Start: 01-17-2022 End: 05-06-2022 predniSONE (DELTASONE) 10 MG tablet Take 70mg daily for 14 days (until 01/21/22), and then 60mg daily until seen by hematology. 200 Tablet 2 01/17/2022 05/06/2022 Discontinued (Therapy completed) rifAXIMin 550 mg oral tablet (1 source) Rifamycin Antibacterial Start: 01-12-2022 take 550 mg by mouth twice daily 550 mg, Oral, 2 TIMES DAILY, First dose (after last modification) on 01/12/22 at 2100, Until Discontinued traMADol hydrochloride 50 mg oral tablet (2 sources) Opioid Agonist Start: 01-16-2022 50 mg, Oral, EVERY 6 HOURS PRN, Starting on Rachel 01/16/22 at 0845, Until Discontinued, Moderate Pain (pain score 4,5,6), Severe Pain (pain score 7,8,9,10) Start: 01-15-2022 End: 01-15-2022 take 1 dose by mouth once 50 mg, Oral, ONCE, 1 dose, O n 01/15/22 at 1800 vitamin b12 0.5 mg oral tablet (1 source) Vitamin B12 Start: 01-09-2022 take 500 ug by mouth once daily 500 mcg, Oral, DAILY, First dose on Rachel 01/09/22 at 1400, Until Discontinued (1 source) Start: 01-09-2022 take 15 mL by mouth once daily 15 mL, Oral, DAILY, First dose on Rachel 01/09/22 at 1400, Until Discontinued Problems Active Problems Problem Classification Problem Date Documented Date Episodic/Chronic Alcohol-related disorders (20 sources) Alcohol abuse; Translations: [Alcohol abuse, uncomplicated] Onset: 01-07-2022 Resolved: 01-12-2023 Chronic Bacterial infection; unspecified site (1 source) Bacterial infection due to Klebsiella pneumoniae; Translations: [Other bacterial infections of unspecified site] Episodic Chronic ulcer of skin (1 source) 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; Translations: [Ulcer of right leg] Chronic Coagulation and hemorrhagic disorders (20 sources) Thrombocytopenic disorder; Translations: [Thrombocytopenia, unspecified] Onset: 01-07-2022 Chronic Deficiency and other anemia (20 sources) Warm autoimmune hemolytic anemia; 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 Deficiency and other anemia (20 sources) Hemolytic anemia; Translations: [Hereditary hemolytic anemia, unspecified] 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-2022 Chronic Deficiency and other anemia (5 sources) Anemia; Translations: [Anemia, unspecified] Onset: 01-07-2022 Episodic Deficiency and other anemia (7 sources) Iron deficiency anemia; Translations: [Iron deficiency anemia, unspecified] Episodic Deficiency and other anemia (2 sources) Deficiency and other anemia; 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] 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-2022 Diabetes mellitus without complication (4 sources) Impaired fasting glycemia; Translations: [Impaired fasting glucose] Onset: 07-24-2023 Episodic E Codes: Natural/environment (1 source) Bite of nonvenomous arthropod; Translations: [Bitten or stung by nonvenomous insect and other nonvenomous arthropods, initial encounter] Onset: 06-19-2023 Episodic Fluid and electrolyte disorders (6 sources) Acidosis; Translations: [Acidosis] Onset: 01-07-2022 Episodic Genitourinary symptoms and ill-defined conditions (2 sources) Dysuria; Translations: [Dysuria] Episodic Immunizations and screening for infectious disease (2 sources) Patient encounter status; Translations: [Encounter for laboratory testing for severe acute respiratory syndrome coronavirus 2 (SARS-CoV-2)] Episodic Inflammatory conditions of male genital organs (1 source) Inflammation of scrotum; Translations: [Inflammatory disorders of scrotum] Onset: 02-17-2022 Episodic Multiple myeloma (1 source) Multiple myeloma; Translations: [Multiple myeloma not having achieved remission] 04-21-2023 Chronic Nausea and vomiting (9 sources) Nausea and vomiting; Translations: [Nausea with vomiting, unspecified] Onset: 10-27-2022 Episodic Nutritional deficiencies (20 sources) Vitamin D deficiency; Translations: [Vitamin D deficiency, unspecified] Onset: 10-30-2011 08-25-2022 Chronic Open wounds of extremities (1 source) Unspecified open wound, right lower leg, initial encounter Episodic Other aftercare (3 sources) Antibiotic prophylaxis indicated; Translations: [vermin exterminator (current) use of antibiotics] Episodic Other aftercare (4 sources) Drug therapy status; Translations: [Other senior living (current) drug therapy] Episodic Other aftercare (1 source) 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; Translations: [Other senior living (current) drug therapy] Onset: 04-21-2023 Episodic Other aftercare (1 source) long-term (current) use of antibiotics; Translations: [vermin exterminator (current) use of antibiotics] Onset: 04-21-2023 Episodic Other aftercare (1 source) Long-term current use of drug therapy; Translations: [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] Onset: 07-24-2023 Episodic Other circulatory disease (1 source) Elevated blood-pressure reading without diagnosis of hypertension; Translations: [Elevated blood-pressure reading, without diagnosis of hypertension] Onset: 07-24-2023 Episodic Other circulatory disease (3 sources) Elevated blood pressure 07-24-2023 Episodic Other connective tissue disease (1 source) Prepatellar bursitis of right knee; Translations: [Prepatellar bursitis, right knee] Episodic Other connective tissue disease (1 source) Swelling of lower limb; Translations: [Other specified soft tissue disorders] Episodic Other connective tissue disease (1 source) Swelling of right lower limb; Translations: [Other specified soft tissue disorders] Episodic Other connective tissue disease (1 source) Muscle finding; Translations: [Myalgia, unspecified site] Episodic Other connective tissue disease (1 source) Pain in right lower limb; Translations: [Pain in right leg] Onset: 02-18-2023 Episodic Other endocrine disorders (1 source) Hypoglycemia; Translations: [Hypoglycemia, unspecified] Chronic Other hematologic conditions (20 sources) Macrocytosis; Translations: [Other specified diseases of blood and blood-forming organs] Onset: 02-12-2022 02-12-2022 Chronic Other hematologic conditions (1 source) Abnormal presence of albumin; Translations: [Abnormality of albumin] Onset: 07-24-2023 Episodic Other injuries and conditions due to external causes (1 source) Traumatic AND/OR non-traumatic injury; Translations: [Other injury of unspecified body region, initial encounter] Onset: 01-07-2022 Episodic Other liver diseases (1 source) Cirrhosis of liver; Translations: [Unspecified cirrhosis of liver] Onset: 01-07-2022 Chronic Other liver diseases (1 source) Hepatic fibrosis; Translations: [Liver fibrosis] Chronic Other liver diseases (1 source) Hepatic failure; Translations: [Acute and subacute hepatic failure without coma] Onset: 01-07-2022 Episodic Other liver diseases (4 sources) Elevated liver enzymes level; Translations: [Abnormal levels of other serum enzymes] Episodic Other liver diseases (1 source) Enzyme level - finding; Translations: [Abnormal levels of other serum enzymes] Onset: 07-24-2023 Episodic Other lower respiratory disease (3 sources) Rib pain; Translations: [Pleurodynia] Episodic Other non-traumatic joint disorders (1 source) Swelling of bilateral feet; Translations: [Effusion, right ankle] Episodic Other nutritional; endocrine; and metabolic disorders (20 sources) Hyperbilirubinemia; Translations: [Other disorders of bilirubin metabolism] Onset: 10-31-2022 Chronic Other nutritional; endocrine; and metabolic disorders (1 source) Iron overload; Translations: [Other disorders of iron metabolism] Chronic Other nutritional; endocrine; and metabolic disorders (1 source) Other disorders of bilirubin metabolism; Translations: [Other disorders of bilirubin metabolism] Onset: 10-31-2022 Chronic Other nutritional; endocrine; and metabolic disorders (11 sources) Overweight in adulthood with body mass index of 25 or more but less than 30; Translations: [Body mass index (BMI) 27.0-27.9, adult] Onset: 07-24-2023 Episodic Other screening for suspected conditions (not mental disorders or infectious disease) (20 sources) No current problems or disability; Translations: [Coag./bleeding tests abnormal] Onset: 07-24-2023 02-23-2014 Episodic Pancreatic disorders (not diabetes) (1 source) Acute pancreatitis; Translations: [Acute pancreatitis without necrosis or infection, unspecified] Onset: 01-07-2022 Episodic Residual codes; unclassified (2 sources) Localized edema; Translations: [Localized edema] Onset: 01-07-2022 Episodic Residual codes; unclassified (2 sources) Edema of lower extremity; Translations: [Localized edema] Episodic Residual codes; unclassified (1 source) Tobacco user; Translations: [Tobacco use] Onset: 07-24-2023 Episodic Residual codes; unclassified (1 source) Current drinker; Translations: [Alcohol use, unspecified, in remission] Onset: 07-24-2023 Episodic Residual codes; unclassified (3 sources) User of smokeless tobacco 07-24-2023 Episodic Skin and subcutaneous tissue infections (12 sources) Cellulitis of right lower limb; Translations: [Cellulitis of right lower limb] Onset: 08-29-2022 Episodic Sprains and strains (1 source) Injury of shoulder and upper arm; Translations: [Strain of muscle, fascia and tendon of other parts of biceps, left arm, initial encounter] Episodic Superficial injury; contusion (1 source) Insect bite, nonvenomous, of thigh; Translations: [Insect bite (nonvenomous), right thigh, initial encounter] Onset: 06-19-2023 Episodic Unclassified (3 sources) Patient encounter status 07-24-2023 Unclassified (3 sources) Serum albumin below reference range 07-24-2023 Urinary tract infections (4 sources) Urinary tract infectious disease; Translations: [Urinary tract infection, site not specified] Episodic Past or Other Problems Problem Classification Problem Date Documented Date Episodic/Chronic Deficiency and other anemia (1 source) Iron deficiency anemia, unspecified; Translations: [Iron deficiency anemia, unspecified] Onset: 08-21-2022 Episodic Other fractures (20 sources) Compression fracture of lumbar spine; Translations: [Wedge compression fracture of unspecified lumbar vertebra, initial encounter for closed fracture] Onset: 08-24-2013 08-25-2022 Episodic Other injuries and conditions due to external causes (20 sources) Hematoma; Translations: [Other injury of unspecified body region, initial encounter] Onset: 01-08-2022 Episodic Other liver diseases (20 sources) Jaundice; Translations: [Unspecified jaundice] Onset: 01-07-2022 Resolved: 08-25-2022 Episodic Other nutritional; endocrine; and metabolic disorders (1 source) Body mass index (BMI) 26.0-26.9, adult; Translations: [Body mass index (BMI) 26.0-26.9, adult] Onset: 10-27-2022 Episodic Residual codes; unclassified (20 sources) 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; Translations: [Genetic susceptibility to other disease] Onset: 10-29-2011 08-25-2022 Episodic Residual codes; unclassified (1 source) Localized edema; Translations: [Localized edema] Onset: 08-14-2022 Episodic Skull and face fractures (20 sources) Open fracture of mandible, angle of jaw; Translations: [Fracture of angle of mandible, unspecified side, initial encounter for open fracture] Onset: 03-15-2008 03-15-2008 Episodic Results Test Name Value Interpretation Reference Range Facil ity Operative Reporton Operative Report [id number]#1.00TIFF [facility] Nursing Assessment - [place] 08-14-2023 Nursing Assessment - Wound [id number]#1.00TIFF [facility] Multi-Wound Charton 08-10-20 Multi-Wound Chart [id number]#2.00TIFF [facility] Nursing Assessment - [place] 08-10-2023 Nursing Assessment - Wound [id number]#1.00TIFF [facility] Nursing Note - [place] 08-10 Nursing Note - Wound [id number]#1.00TIFF [facility] Physician Orderon 08-10-2023 Physician Order [id number]#1.00TIFF [facility] Physician Order [id number]#1.00TIFF [facility] Procedure - [place] 08-10-20 Procedure - Wound [id number]#1.00TIFF [facility] Progress Note - [place] Progress Note - Wound [id number]#1.00TIFF [facility] Consent for Treatmenton 07-10 Consent for Treatment [id number]#1.00TIFF [facility] Transfer Inon 08-06-2023 Transfer In [id number]#1.00T IFF [facility] Transfer In [id number]#1.00T IFF [facility] Transfer In [id number]#1.00TI FF [facility] Consent for Treatmenton 07-09 Consent for Treatment [id number]#1.00TIFF [facility] Ambulatory Visit Summaryon 1 1-20-2023 Ambulatory Visit Summary WILL ANDERSON :1985 Visit Date:07/16/2023 Ambulatory Visit Instructions Your Care Team Primary Care Physician - Lisa Padilla This Is Your Medications List Misc Prescription Misc Prescription (Misc DME Prescription) Misc Prescription (Misc DME Prescription) Misc Prescription (Misc DME Prescription) Misc Prescription (Misc DME Prescription) folic acid (folic acid 1 mg Tab) furosemide (furosemide 20 mg Tab) gabapentin (gabapentin 300 mg Cap) hydrOXYzine (hydrOXYzine pamoate 25 mg Cap) lactulose (lactulose 10 g/15 mL Oral Syrup) milk thistle (Milk Thistle) multivitamin (Tab-A-Scott oral tablet) mycophenolate mofetil (mycophenolate mofetil 500 mg oral tablet) ondansetron (Zofran ODT 4 mg Tab-Dis) potassium chloride (Potassium Chloride (Oif-Gvvf-Tth M20) 20 mEq oral tablet, extended release) spironolactone (spironolactone 50 mg Tab) sulfamethoxazole-trimethoprim [Image Removed: STOP]Stop taking these medications clindamycin (clindamycin 150 mg Cap) Procedures Performed Jaw. What to do next Scheduled Follow-Up Appointments Thursday 10:15 AM EST With: Kartik WALDEN, RDN, LD, Leslie Portillo Where: [facility] 2022 9:30 AM EST With: Teddy Hitchcock MD Where: [facility] Thursday 7:20 AM EST With: Lisa Padilla Where: [facility] Invalid Interpretation Code Thrombocytopenia [facility] Physician Orderon 07-27-2023 Physician Order [id number]#1.00TIFF Normal [facility] Ambulatory Visit Summaryon 1 09-23-2022 Ambulatory Visit Summary WILL ANDERSON :1985 Visit Date:07/24/2023 Ambulatory Visit Instructions Your Diagnosis Heavy alcohol use Elevated liver enzymes Thrombocytopenia Elevated INR Smokeless tobacco use Screening for lipid disorders Hypokalemia Low serum albumin Elevated fasting glucose Anemia Cellulitis of leg, right Elevated blood pressure reading BMI 25.0-25.9,adult Leg pain Your Care Team Attending Physician - Lisa Padilla Primary Care Physician - Lisa Padilla This Is Your Medications List Misc Prescription Misc Prescription (Misc DME Prescription) Misc Prescription (Misc DME Prescription) Misc Prescription (Misc DME Prescription) Misc Prescription (Misc DME Prescription) folic acid (folic acid 1 mg Tab) furosemide (furosemide 20 mg Tab) gabapentin (gabapentin 300 mg Cap) hydrOXYzine (hydrOXYzine pamoate 25 mg Cap) lactulose (lactulose 10 g/15 mL Oral Syrup) milk thistle (Milk Thistle) multivitamin (Tab-A-Scott oral tablet) mycophenolate mofetil (mycophenolate mofetil 500 mg oral tablet) ondansetron (Zofran ODT 4 mg Tab-Dis) potassium chloride (Potassium Chloride (Gty-Dsvt-Sbd M20) 20 mEq oral tablet, extended release) spironolactone (spironolactone 50 mg Tab) sulfamethoxazole-trimethoprim [Image Removed: STOP]Stop taking these medications clindamycin (clindamycin 150 mg Cap) Procedures Performed Jaw. Discharge Vitals Heart Rate (Peripheral) 79 Respiratory Rate 16 Blood Pressure 132/76 Height 170 cm Height 67 in Weight 73.5 kg Weight 161.7 lb BMI 25.43 What to do next Scheduled Follow-Up Appointments 2022 9:30 AM EST With: Coretta MULTANI, Teddy Rodarte Where: [facility] Medications What How Much When Why Instructions New potassium chloride (Potassium Chloride (Kok-Zheh-Gcp M20) 20 mEq oral tablet, extended release) 1 Tablets By Mouth 2 times a day Refills: 3 Pickup at [facility] #[id number] Changed gabapentin (gabapentin 300 mg Cap) 1 Capsules By Mouth 2 times a day Leg pain Pickup at [facility] #[id number] Changed ondansetron (Zofran ODT 4 mg Tab-Dis) 1 Tablets By Mouth Every 8 hours as needed for Nausea/Vomiting Unchanged folic acid (folic acid 1 mg Tab) 1 Tablets By Mouth Every day Unchanged furosemide (furosemide 20 mg Tab) 1 Tablets By Mouth Every day Unchanged hydrOXYzine (hydrOXYzine pamoate 25 mg Cap) 1 Capsules By Mouth 3 times a day as needed for for itching Unchanged lactulose (lactulose 10 g/ 15 mL Oral Syrup) 30 Milliliter By Mouth 4 times a day Unchanged milk thistle (Milk Thistle) 1,000 Milligram By Mouth Every day Unchanged Misc Prescription 0 Every day Bee Venom Unchanged Misc Prescription (Misc DME Prescription) See instructions Roe SAP Dressing 4 x 4 dressing Unchanged Misc Prescription (Misc DME Prescription) See instructions LiquidIV hydration Unchanged Misc Prescription (Misc DME Prescription) See instructions Collagen Matrix with ORC and Silver dressing Unchanged Misc Prescription (Misc DME Prescription) See instructions Muscle & joint balm CBD 880mg Unchanged multivitamin (Tab-A-Scott oral tablet) 1 Tablets By Mouth Every day Unchanged mycophenolate mofetil (mycophenolate mofetil 500 mg oral tablet) 1 Tablets By Mouth 2 times a day Unchanged spironolactone (spironolactone 50 mg Tab) 1 Tablets By Mouth Every day Unchanged sulfamethoxazole-trimethoprim 80 Milligram By Mouth Take on Thursday, and Thursday Pharmacy Information [facility] #[id number]: [address] [place], [place] [id number] [phone] What How Much When Comments Stop Taking clindamycin (clindamycin 150 mg Cap) 2 Capsules By Mouth 4 times a day Allergies amoxicillin (Unknown) penicillin (unknown) Problems Ongoing - Any problem that you are currently receiving treatment for. Alcohol abuse Anemia Cellulitis of leg, right Elevated blood pressure reading Elevated fasting glucose Elevated INR Elevated liver enzymes Heavy alcohol use Hypokalemia Low serum albumin Screening for lipid disorders Smokeless tobacco use Thrombocytopenia Historical - Any problem that you are no longer receiving treatment for. Denies Patient Survey You may receive a survey via text or e-mail asking about your office visit. Please share your experience with us by completing your survey. We appreciate your feedback and thank you for choosing us for your care. [facility] Auth for Release of Medical Recordson 07-24-2023 Auth for Release of Medical Records [id number]#1.00TIFF [facility] Auth for Release of Medical Records [id number]#1.00TIFF Normal [facility] Auth for Release of Medical Records [id number]#1.00TIFF Normal [facility] CHEMISTRYOrdered By: Huber Jha on 07-24-2023 Albumin DL <= 20 mg/L (U) [Mass/Vol] microgram/mL Normal 0.0 - 19.0 mcg/mL [facility] [place] Albumin Elph (U) [Mass fraction] mg/dL Invalid Interpretation Code [facility] Comment on above: Interpretive Data: T he reference range and other method performance specifications have not been established for this test; results should be integrated into the clinical context for interpretation. Creatinine (U) [Mass/Vol] 22.5 mg/dL Invalid Interpretatio n Code [facility] Comment on above: Interpretive Data: T he reference range and other method performance specifications have not been established for this test; results should be integrated into the clinical context for interpretation. U Prot/Creat Ratio [facility] Invalid Interpretation Code 0.00 - 200.00 [facility] Family Medicine Office/Clini c Noteon 07-24-2023 Family Medicine Office/Clinic Note Chief Complaint Establish Care HPI Staff Reason for Visit: Establish Care. Pt is here to establish care with us today. He states he is on a lot of medication and doesn't want to take it anymore. Pt states that he has seen a lot of specialty for multiple things, but wants to transition to be in one place except for his Crane Oiler, DR Tanvir BLACK. Pt is currently with wound care at [facility]. Pt is also seeing a vascular specialist in [place]. Depression: Baseline PHQ9: 2 ROBY: Baseline: 5 Last Labs done: Covid Vaccine: Yes Flu Vaccine: Due Smoker: Smokeless History of Present Illness Patient is a 37-year-old male here to establish care Over the last year and has been to the ER 4 times -June for a bee sting to the thigh. Given Toradol and triamcinolone injections and discharged home -March 2023 patient had a wound on the right leg, history of cellulitis failed outpatient therapy on oral antibiotics, patient is jaundice, questionable cirrhosis versus hepatitis C, history of alcohol abuse and liver disease, follows up with wound care, patient discharged with Zofran and Bactrim, labs were done, CBC shows anemia, possible iron deficiency due to low hemoglobin hematocrit and high MCH and high RDW, platelets were 87, PT 30, PTT 42, INR 2.6?, Glucose 146 BUN 7 creatinine 0.6 sodium 133 potassium 3.0, calcium 8.2, alk phos 158 ALT 50, AST 80, albuterol BUN 2.5, globulin 4.7, bilirubin 8.1, troponin 10.3 EKG sinus rhythm - February 2023 leg pain, diagnosis cellulitis right leg treated with clindamycin and ibuprofen, short course of oxycodone provided, ultrasound done, negative DVT study -February 17, 2023 lower extremity edema, cellulitis of scrotum, thrombocytopenia hypokalemia, scrotal ultrasound was unremarkable chest x-ray unremarkable, BNP was 142, lipase 68 elevated, lactate normal 1.8, bilirubin total 6.2, bili direct 1.6, indirect 4.6, alk phos 268 and ALT AST 93 ALT 60, low albumin 2.8, potassium 3.2, sodium 130, platelets 113, hemoglobin 10.4 and hematocrit 21, elevated RDW 17, normal WBC, glucose 123, normal creatinine Medical History: Elevated blood pressure reading with every visit- Cirrhosis?, Liver disease+ NO HX Of hep C -biopsy in January of liver - [facility] edema/ swelling- lactulose/ lasix Former Chronic alcohol use, 3-5 times per week Daily chewing tobacco use Anemia- follows with hematology depression / anxiety- has been on meds- did not go well today PHQ9 2 ROBY: 5 right leg- continued drainage- wound care- follows with Dr Hitchcock- 2 rounds of antibiotics, swelling makes it works. started gabapentin 100 mg BID for leg pain. 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 Family life: single- needs to work on his self Diet: Not very given Caffeine: Daily coffee Exercise: Not enough Alcohol use: 2 years ago - quit drinking FORMER ++ Lots of beer, 3-5 times per week Drug use: Denies Smoking status: Chewing tobacco Health Maintenance: Routine labs: ER labs reviewed - ordered additional labs today colonoscopy/cologuard (45-75yo): not due yet PSA (45-70yo): not due yet Specialists: Real Estate Agent: ? Dentist: ? LIVER- Kian Mckittrick wound care- Dr Hitchcock Vascular- Olivia Crane Oiler, DR Tanvir nathan Physical Exam Vitals & Measurements HR: 79(Peripheral) RR: 16 BP: 132/76 SpO2: 100% HT: 67 in HT: 170 cm WT: 73.5 kg WT: 161.7 lb BMI: 25.43 General: alert, no acute distress, well appearing, _pleasant , young male Skin: warm, dry, intact + jandice. Pitting edema 1+ noted under compression stocks noted to the right leg, some chronic vascular discoloration bilateral legs, there is a small 2 x 3 dressing to the right lateral calf that is dry and intact Head: no trauma, normocephalic Neck: Trachea midline, no adenopathy, no tenderness Eye: ICTEROUS conjunctiva, sclera clear, _PERRLA ENMT: oral mucosa moist, no pharyngeal erythema or exudate, poordentition Cardiovascular: regular rate and rhythm, normal peripheral perfusion, no edema Respiratory: Lungs CTA, respirations non labored Chest wall: no deformity, non tender Gastrointestinal: soft, non distended, no tenderness, no guarding. Back: No tenderness, Normal ROM, Normal alignment. Extremities: no deformity, no trauma Neurological: oriented x 4, LOC appropriate for age, CN II-XII intact, motor strength equal & normal bilaterally, sensation equal & normal bilaterally, speech normal Psychiatric: cooperative? , affect appropriate for age? , normal? judgement, normal? psychiatric thoughts. Assessment/Plan labs ordered, referral to [facility] , liver/ anemia 1. 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 Normal [facility] Comment on above: Result Comment: Elec tronically Signed By: Lisa Padilla.chidi\Date and Time Signed: 07/24/23 09:18 EST Medication Consenton 023 Medication Consent [id number]#1.00TIFF Normal [facility] Patient Educationon 07-24-20 Patient Education Gastroenterology Cirrhosis Cirrhosis is long-term (chronic) liver injury. The liver is the body's largest internal organ, and it performs many functions. It converts food into energy, removes toxic material from the blood, makes important proteins, and absorbs necessary vitamins from food. In cirrhosis, healthy liver cells are replaced by scar tissue. This prevents blood from flowing through the liver and makes it difficult for the liver to complete its functions. What are the causes? Common causes of this condition are hepatitis C and long-term alcohol abuse. Other causes include: ? Nonalcoholic fatty liver disease (NAFLD). This happens when fat is deposited in the liver by causes other than alcohol. ? Hepatitis B infection. ? Autoimmune hepatitis. In this condition, the body's defense system (immune system) mistakenly attacks the liver cells, causing inflammation. ? Diseases that cause blockage of ducts inside the liver. ? Inherited liver diseases, such as hemochromatosis. This is one of the most common inherited liver diseases. In this disease, deposits of iron collect in the liver and other organs. ? Reactions to certain long-term medicines, such as amiodarone, a heart medicine. ? Parasitic infections. These include schistosomiasis, which is caused by a flatworm. ? Long-term contact to certain toxins. These toxins include certain organic solvents, such as toluene and chloroform. What increases the risk? You are more likely to develop this condition if: ? You have certain types of viral hepatitis. ? You abuse alcohol, especially if you are female. ? You are overweight. ? You use IV drugs and share needles. ? You have unprotected sex with someone who has viral hepatitis. What are the signs or symptoms? You may not have any signs and symptoms at first. Symptoms may not develop until the damage to your liver starts to get worse. Early symptoms may include: ? Weakness and tiredness (fatigue). ? Changes in sleep patterns or having trouble sleeping. ? Itchiness. ? Tenderness in the right-upper part of your abdomen. ? Weight loss and muscle loss. ? Nausea. ? Loss of appetite. Later symptoms may include: ? Fatigue or weakness that is getting worse. ? Yellow skin and eyes (jaundice). ? Buildup of fluid in the abdomen (ascites). You may notice that your clothes are tight around your waist. ? Weight gain and swelling of the feet and ankles (edema). ? Trouble breathing. ? Easy bruising and bleeding. ? Vomiting blood, or black or bloody stool. ? Mental confusion. How is this diagnosed? Your health care provider may suspect cirrhosis based on your symptoms and medical history, especially if you have other medical conditions or a history of alcohol abuse. Your health care provider will do a physical exam to feel your liver and to check for signs of cirrhosis. Tests may include: ? Blood tests to check: ? For hepatitis B or C. ? Kidney function. ? Liver function. ? Imaging tests such as: ? MRI or CT scan to look for changes seen in advanced cirrhosis. ? Ultrasound to see if normal liver tissue is being replaced by scar tissue. ? A procedure in which a long needle is used to take a sample of liver tissue to be checked in a lab (biopsy). Liver biopsy can confirm the diagnosis of cirrhosis. How is this treated? Treatment for this condition depends on how damaged your liver is and what caused the damage. It may include treating the symptoms of cirrhosis, or treating the underlying causes to slow the damage. Treatment may include: ? Making lifestyle changes, such as: ? Eating a healthy diet. You may need to work with your health care provider or a dietitian to develop an eating plan. ? Restricting salt intake. ? Maintaining a healthy weight. ? Not abusing drugs or alcohol. ? Taking medicines to: ? Treat liver infections or other infections. ? Control itching. ? Reduce fluid buildup. ? Reduce certain blood toxins. ? Reduce risk of bleeding from enlarged blood vessels in the stomach or esophagus (varices). ? Liver transplant. In this procedure, a liver from a donor is used to replace your diseased liver. This is done if cirrhosis has caused liver failure. Other treatments and procedures may be done depending on the problems that you get from cirrhosis. Common problems include liver-related kidney failure (hepatorenal syndrome). Follow these instructions at home: ? Take medicines only as told by your health care provider. Do not use medicines that are toxic to your liver. Ask your health care provider before taking any new medicines, including yefg-osr-dmpfcxx medicines such as NSAIDs. ? Rest as needed. ? Eat a well-balanced diet. ? Limit your salt or water intake, if your health care provider asks you to do this. ? Do not drink alcohol. This is especially important if you routinely take acetaminophen. ? Keep all f (more content not included)... Normal [facility] Physician Referralon 023 Physician Referral [id number]#1.00TIFF Normal [facility] U Microalbon 07-24-2023 Albumin DL <= 20 mg/L (U) [Mass/Vol] mg/dL Normal 0.0-19.0 [facility] Comment on above: Performed By: #### 1 [id number], [id number] ####[facility] [address] [place] [address] U Protein/Creat Ratioon 07-08 Creatinine (U) [Mass/Vol] 22.5 mg/dL Invalid Interpretation Code [facility] Comment on above: Result Comment: The reference range and other method performance specifications have not been established for this test; results should be integrated into the clinical context for interpretation. Performed By: #### 1 [id number], [id number] ####[facility] [address] [place] [address] U Prot/Creat Ratio [facility] Invalid Interpretation Code .00-200.00 [facility] Comment on above: Performed By: #### 1 [id number], [id number] ####[facility] [address] [place] [address] Albumin Elph (U) [Mass fraction] <6.0 Invalid Interpretation Code [facility] Comment on above: Result Comment: The reference range and other method performance specifications have not been established for this test; results should be integrated into the clinical context for interpretation. Performed By: #### 1 [id number], [id number] ####[facility] [address] [place] [address] Consent for Treatmenton 07-08 Consent for Treatment [id number]#1.00TIFF Normal [facility] Multi-Wound Charton 07-23-20 Multi-Wound Chart [id number]#1.00TIFF [facility] Nursing Assessment - Woundon 07-23-2023 Nursing Assessment - Wound [id number]#1.00TIFF [facility] Nursing Note - Woundon 07-23 Nursing Note - Wound [id number]#1.00TIFF [facility] Physician Orderon 07-23-2023 Physician Order [id number]#1.00TIFF [facility] Procedure - Woundon 07-23-20 Procedure - Wound [id number]#1.00TIFF [facility] Progress Note - Woundon 07-08 Progress Note - Wound [id number]#1.00TIFF [facility] Nursing Assessment - Woundon 07-20-2023 Nursing Assessment - Wound [id number]#2.00TIFF [facility] Nursing Note - Woundon 07-20 Nursing Note - Wound [id number]#2.00TIFF [facility] Progress Note - Woundon 07-08 Progress Note - Wound [id number]#3.00TIFF [facility] Physician Orderon 07-17-2023 Physician Order [id number]#1.00TIFF [facility] Procedure - Woundon 07-17-20 Procedure - Wound [id number]#1.00TIFF [facility] Consent for Procedure/Surger yon 07-16-2023 Consent for Procedure/Surgery [id number]#1.00TIFF [facility] Consent for Treatmenton Consent for Treatment [id number]#1.00TIFF [facility] Multi-Wound Charton 07-16-20 Multi-Wound Chart [id number]#1.00TIFF [facility] Prescriptions/Work Noteson 09-15-2022 Prescriptions/Work Notes [id number]#1.00TIFF [facility] Nursing Note - Woundon 07-03 Nursing Note - Wound [id number]#1.00TIFF [facility] Consent for Treatmenton 06-07 Consent for Treatment [id number]#1.00TIFF [facility] Multi-Wound Charton 06-25-20 Multi-Wound Chart [id number]#1.00TIFF [facility] Nursing Assessment - Woundon 06-25-2023 Nursing Assessment - Wound [id number]#1.00TIFF [facility] Nursing Note - Woundon 06-25 Nursing Note - Wound [id number]#1.00TIFF [facility] Physician Orderon 06-25-2023 Physician Order [id number]#1.00TIFF [facility] Procedure - Woundon 06-25-20 Procedure - Wound [id number]#1.00TIFF [facility] Progress Note - Woundon 06-07 Progress Note - Wound [id number]#1.00TIFF Normal [facility] ED Note-Physicianon 06-20-20 ED Note-Physician Basic Information Time Seen: Omid PARKER Xander FriedmanSarah 06/19/2023 12:21 Chief Complaint Pt was possibly stung by bee on rt thigh. History of Present Illness A 37-year-old male reports emerged department with chief complaint of a possible bee sting on his right thigh. He reports that this happened about limited ago, and has been having pain in his leg ever since. He reports that there are some mild redness, but wanted to get it checked out. He states that he is on Bactrim due to history of cellulitis lower on his leg, which he does see wound care for. He states that he has allergies to amoxicillin and penicillin. Wants something for some pain relief. Has not take anything. Denies any fevers chills nausea vomiting. Review of Systems A 10 point review of systems is negative except as noted above. Medical and Surgical History: Reviewed and noted Social history: Lives at home Family History: Reviewed. Tobacco: user Physical Exam Vitals & Measurements T: 36.6 ?C(Oral) HR: 70(Peripheral) RR: 18 BP: 165/105 SpO2: 98% HT: 170 cm WT: 75.2 kg BMI: 26.02 General: The patient appears well and in no apparent distress. Patient is resting comfortably in chair. Afebrile. Skin: Warm, dry, no pallor noted. Small area of what appears to be insect bite on the right upper thigh and anterior aspect. There is some mild surrounding erythema that appears to be localized reaction. Blanches when palpated. No warmth noted to palpation. Head: Normocephalic, atraumatic Neck: No JVD Eye: PERRLA, EOMI ENT: Moist mucus membranes Cardiovascular: Regular rate normal peripheral perfusion Respiratory: No respiratory distress no accessory muscle use no obvious audible wheezing Chest Wall: no deformity Musculoskeletal: normal ROM, no deformity, no swelling GI: No obvious distention Neurological: A&O moves all extremities equal strength and symmetry Psychiatric: Cooperative and appropriate Medical Decision Making MEDICAL DECISION MAKING Number and Complexity of Problems Differential Diagnosis: [] [facility] Data External documents reviewed: [] My EKG interpretation: [] My CT interpretation: [] My X-ray interpretation: [] My Ultrasound interpretation: [] Decision rules/scores evaluated: [] Discussed with: [] Treatment and Disposition ED Course: 37-year-old male reports to the emergency department with a chief complaint of a possible insect bite to his right upper thigh. When to get it checked out. States he is on Bactrim already. On physical exam peers to be a localized reaction of his bite right upper thigh. No obvious cellulitis noted. Patient already on Bactrim. Due to his pain, as well as to help with localized reaction he was given a shot of Toradol and Kenalog. Discussed return precautions. Follow-up with your primary care provider in 3 to 5 days. If symptoms worsen, do not improve, or new symptoms arise please report back to emergency department for further evaluation. The patient was understanding and agreeable to plan moving forward. Shared decision making: [] Code status: [] Assessment/Plan Bitten or stung by nonvenomous insect and other nonvenomous arthropods, initial encounter (W57.XXXA: Bitten or stung by nonvenomous insect and other nonvenomous arthropods, initial encounter) Insect bite of right thigh (S70.361A: Insect bite (nonvenomous), right thigh, initial encounter) Orders: ketorolac, 30 mg = 1 mL, Injection, IntraMuscular, Once, Stop date 06/19/23 12:38:00 EDT, STAT, Start date 06/19/23 12:38:00 EDT, 06/19/23 12:38:00 EDT triamcinolone, 40 mg = 1 mL, Susp-Inj, IntraMuscular, Once, Stop date 06/19/23 12:39:00 EDT, STAT, Start date 06/19/23 12:39:00 EDT, 06/19/23 12:39:00 EDT Disposition Plan Patient Discharge Condition Stable Discharge Disposition To home Discharge Prescription List Prescriptions No active prescription medications Follow-up With When Contact Information Colby Link In 3 days 06/22/2023 EDT [address] [place] [address]- Business (1) Additional Instructions: Follow-up with your primary care provider in 3 to 5 days. If symptoms worsen, do not improve, or new symptoms arise please report back to emergency department for further evaluation. Patient Education Insect Bite, Adult, Wqea-fx-Niif Attestation Patient seen and evaluated by the physician ophthalmic medical assistant. Attending physician was present in the emergency department and supervised care. This visit was performed by both the physician and an APC. I performed all aspects of the MDM as documented. This report was transcribed using voice recognition software. Every effort was made to ensure accuracy, however, inadvertently computerized railroad mechanic mistakes may be present. Appropriate healthcare PPE was used in evaluating this patient. The patient was placed in a mask. The healthcare provider was wearing mask, gloves, and utilizing proper hand hygiene. All equipment was prop (more content not included)... Normal [facility] Comment on above: Result Comment: Elec tronically Signed By: Xander Anne PA-C\.br\Date and Time Signed: 06/19/23 13:22 EDT\.br\Electronically Co-Signed By: Teddy Luna DO\.br\Date and Time Co-Signed: 06/20/23 07:44 EDT Consent for Treatmenton 06-07 Consent for Treatment [id number]#1.00TIFF Normal [facility] Discharge Instructionson Discharge Instructions [id number]#1.00TIFF Normal [facility] ED Clinical Summaryon 2022 ED Clinical Summary (Inserted Image. Michelle ble to display) [address] [address] ED Clinical Summary Person Information Name: WILL ANDERSON Elder Felicity/[place] Age: 37 Years : 1985 Sex: Male Language: Greenlandic PCP: NONE, XXXX Marital Status: Single Visit Id: Visit Reason: Insect bite and/or sting; Leg pain-swelling; RIGHT LEG SWELLING AND PAIN Speciality: Acuity: 4 Enc Type: Emergency Med Service: Emergency Arrival: 06/19/2023 12:15:49 Discharge: 06/19/2023 13:27:55 LOS: 000 01:12 Checkin: 06/19/2023 12:15:49 Checkout: 06/19/2023 13:27:55 Dispo Type: Home (Routine DC) EVENTS: Event Name Event Status Request Date/Time Start Date/Time Complete Date/Time Arrive Complete 06/19/2023 12:15:49 06/19/2023 12:15:49 06/19/2023 12:15:49 Document Home Meds Request 06/19/2023 12:15:49 Triage Complete 06/19/2023 12:15:49 06/19/2023 12:25:05 06/19/2023 12:25:05 Bed Assign Complete 06/19/2023 12:21:04 06/19/2023 12:21:04 06/19/2023 12:21:04 Dr Exam Complete 06/19/2023 12:21:04 06/19/2023 12:21:14 06/19/2023 12:21:14 RN Exam Complete 06/19/2023 12:21:04 06/19/2023 13:27:24 06/19/2023 13:27:24 Registration Complete 06/19/2023 12:21:06 06/19/2023 12:21:06 06/19/2023 12:21:06 Reg Complete Request 06/19/2023 12:21:06 Registration Request 06/19/2023 12:21:14 Dr Exam Complete 06/19/2023 12:22:02 06/19/2023 12:22:02 06/19/2023 12:22:02 Meds Admin Complete 06/19/2023 12:39:16 06/19/2023 13:24:24 Discharge Complete 06/19/2023 12:39:59 06/19/2023 13:28:07 06/19/2023 13:28:07 Transfer Complete 06/19/2023 13:28:07 06/19/2023 13:28:07 06/19/2023 13:28:07 ADDRESS: [address] [facility] [id number] PHYS DOC NOTES: MEDICAL INFORMATION: Prescriptions Given: Medications to Continue with No Changes Other Medications clindamycin (clindamycin 150 mg Cap) 2 Capsules By Mouth 4 times a day. Refills: 0. ondansetron (Zofran ODT 4 mg Tab-Dis) 1 Tablets By Mouth every 8 hours as needed Nausea/Vomiting. Refills: 0. PATIENT EDUCATION INFORMATION: Instructions: Insect Bite, Adult, Asve-wu-Uvpd Follow up: With: Address: When: [address] [place] [address] [facility] (1) In 3 days 06/22/2023 Comments: Follow-up with your primary care provider in 3 to 5 days. If symptoms worsen, do not improve, or new symptoms arise please report back to emergency department for further evaluation. DIAGNOSIS: Bitten or stung by nonvenomous insect and other nonvenomous arthropods, initial encounter; Insect bite of right thigh Normal [facility] ED Patient Education Noteon 06-19-2023 ED Patient Education Note Infectious Disease Insect Bite, Adult An insect bite can make your skin red, itchy, and swollen. Some insects can spread disease to people with a bite. However, most insect bites do not lead to disease, and most are not serious. What are the causes? Insects may bite for many reasons, including: ? Hunger. ? To defend themselves. Insects that bite include: ? Spiders. ? Mosquitoes. ? Ticks. ? Fleas. ? Ants. ? Flies. ? Kissing bugs. ? Chiggers. What are the signs or symptoms? Symptoms of this condition include: ? Itching or pain in the bite area. ? Redness and swelling in the bite area. ? An open wound (skin ulcer). Symptoms often last for 2?4 days. In rare cases, a person may have a very bad allergic reaction (anaphylactic reaction) to a bite. Symptoms of an anaphylactic reaction may include: ? Feeling bioengineer the face (flushed). Your face may turn red. ? Itchy, red, swollen areas of skin (hives). ? Swelling of the: ? Eyes. ? Lips. ? Face. ? Mouth. ? Tongue. ? Throat. ? Trouble with any of these: ? Breathing. ? Talking. ? Swallowing. ? Loud breathing (wheezing). ? Feeling dizzy or light-headed. ? Passing out (fainting). ? Pain or cramps in your belly. ? Throwing up (vomiting). ? Watery poop (diarrhea). How is this treated? Treatment is usually not needed. Symptoms often go away on their own. When treatment is needed, it may involve: ? Putting a cream or lotion on the bite area. This helps with itching. ? Taking an antibiotic medicine. This treatment is needed if the bite area gets infected. ? Getting a tetanus shot, if you are not up to date on this vaccine. ? Putting ice on the affected area. ? Using medicines called antihistamines. This treatment may be needed if you have itching or an allergic reaction to the insect bite. ? Giving yourself a shot of medicine (epinephrine) using an auto-injector pen if you have an anaphylactic reaction to a bite. Your doctor will teach you how to use this pen. Follow these instructions at home: Bite area care ? Do not scratch the bite area. ? Keep the bite area clean and dry. ? Wash the bite area every day with soap and water as told by your doctor. ? Check the bite area every day for signs of infection. Check for: ? Redness, swelling, or pain. ? Fluid or blood. ? Warmth. ? Pus or a bad smell. Managing pain, itching, and swelling ? You may put any of these on the bite area as told by your doctor: ? A paste made of baking soda and water. ? Cortisone cream. ? Calamine lotion. ? If told, put ice on the bite area. ? Put ice in a plastic bag. ? Place a towel between your skin and the bag. ? Leave the ice on for 20 minutes, 2?3 times a day. General instructions ? Apply or take qtyb-lfv-ikhiqoo and prescription medicines only as told by your doctor. ? If you were prescribed an antibiotic medicine, take or apply it as told by your doctor. Do not stop using the antibiotic even if your condition improves. ? Keep all follow-up visits as told by your doctor. This is important. How is this prevented? To help you have a lower risk of insect bites: ? When you are outside, wear clothing that covers your arms and legs. ? Use insect repellent. The best insect repellents contain one of these: ? DEET. ? Picaridin. ? Oil of lemon eucalyptus (OLE). ? [id number]. ? Consider spraying your clothing with a pesticide called permethrin. Permethrin helps prevent insect bites. It works for several weeks and for up to 5?6 clothing washes. Do not apply permethrin directly to the skin. ? If your home windows do not have screens, think about putting some in. ? If you will be sleeping in an area where there are mosquitoes, consider covering your sleeping area with a mosquito net. Contact a doctor if: ? You have redness, swelling, or pain in the bite area. ? You have fluid or blood coming from the bite area. ? The bite area feels warm to the touch. ? You have pus or a bad smell coming from the bite area. ? You have a fever. Get help right away if: ? You have joint pain. ? You have a rash. ? You feel more tired or sleepy than you normally do. ? You have neck pain. ? You have a headache. ? You feel weaker than you normally do. ? You have signs of an anaphylactic reaction. Signs may include: ? Feeling bioengineer the face. ? Itchy, red, swollen areas of skin. ? Swelling of your: ? Eyes. ? Lips. ? Face. ? Mouth. ? Tongue. ? Throat. ? Trouble with any of these: ? Breathing. ? Talking. ? Swallowing. ? Loud breathing. ? Feeling dizzy or light-headed. ? Passing out. ? Pain or cramps in your belly. ? Throwing up. ? Watery poop. These symptoms may be an emergency. Do not wait to see if the symptoms will go away. Do this right away: ? Use your auto-injector pen as you have been told. ? Get medical help. Call your local (more content not included)... Normal [facility] ED Patient Summaryon 023 ED Patient Summary [place] [id number] Patient Discharge Instructions Person Information Name: WILL ANDERSON Age: 37 Years Arrival Date: 06/19/2023 12:15:49 Discharge Diagnosis: Bitten or stung by nonvenomous insect and other nonvenomous arthropods, initial encounter; Insect bite of right thigh Primary Care Physician: NONE, XXXX Provider Information Primary Provider: Teddy Luna DO [employer] Operator:None The exam and treatment you received in the Emergency Department were for an urgent problem and are not intended as complete care. It is important that you follow up with a doctor, nurse practitioner, or physician?s ophthalmic medical assistant for ongoing care. If your symptoms become worse or you do not improve as expected and you are unable to reach your usual health care provider, you should return to the Emergency Department. We are available 24 hours a day. WILL ANDERSON has been given the following list of patient education materials, prescriptions and follow-up instructions: Follow-up Instructions: With: Address: When: [address] [place] [address] [facility] (1) In 3 days 06/22/2023 Comments: Follow-up with your primary care provider in 3 to 5 days. If symptoms worsen, do not improve, or new symptoms arise please report back to emergency department for further evaluation. In the event that this physician does not participate in your insurance network, please consult with your insurance company to find a nearby participating provider. Patient Education Materials: Insect Bite, Adult, Dvgh-hb-Ilhn A MESSAGE TO ALL PATIENTS REGARDING OPIOIDS PRESCRIPTION OPIOIDS: WHAT YOU NEED TO KNOW Prescription opioids can be used to help relieve nzjyndji-uv-juxbqs pain and are often prescribed following a surgery or injury, or for certain health conditions. These medications can be an important part of the treatment but also come with serious risks. It is important to work with your healthcare provider to make sure you are getting the safest, most effective care. WHAT ARE THE RISKS AND SIDE EFFECTS OF OPIOID USE? Prescription opioids carry serious risks of addiction and overdose, especially with prolonged use. An opioid overdose, often marked by slowed breathing, can cause sudden . The use of prescription opioids can have a number of side effects as well, even when taken as directed: ? Tolerance?meaning you might need to take more of the medication for the same pain relief ? Physical dependence?meaning you have symptoms of withdrawal when a medication is stopped ? Increased sensitivity to pain ? Constipation ? Nausea, vomiting, and dry mouth ? Sleepiness and dizziness ? Confusion ? Depression ? Low levels of testosterone that can result in lower sex drive, energy, and strength ? Itching and sweating RISKS ARE GREATER WITH: ? History of drug misuse, substance use disorder, or overdose ? Mental health conditions (such as depression or anxiety) ? Sleep apnea ? Older age (65 years and older) ? Avoid alcohol while taking prescription opioids. Also, unless specifically advised by your health care provider, medications to avoid include: ? Benzodiazepines (such as Xanax or Valium) ? Muscle relaxants (such as Soma or Flexeril) ? Hypnotics (such as Ambien or Lunesta) ? Other prescription opioids KNOW YOUR OPTIONS Talk to your health care provider about ways to manage your pain that don?t involve prescription opioids. Some of these options may actually work better and have fewer risks and side effects. Options may include: ? Pain relievers such as acetaminophen, ibuprofen, and naproxen ? Some medication that are also used for depression or seizures ? Physical therapy and exercise ? Cognitive behavioral therapy, a psychological, goal-directed approach, in which patients learn how to modify physical, behavioral, and emotional triggers of pain and stress. IF YOU ARE PRESCRIBED OPIOIDS FOR PAIN: ? Never take opioids in greater amounts or more often than prescribed. ? Follow up with your primary health care provider. o Work together to create a plan on how to manage your pain. o Talk about ways to help manage your pain that don?t involve prescription opioids. o Talk about any and all concerns and side effects. ? Help prevent misuse and abuse o Never sell or share prescription opioids. o Never use another person?s prescription opioids. ? Store prescription opioids in a secure place and out of reach of others (this may include visitors, children, friends, and family). ? Safely dispose of unused prescription opioids: Find your community drug take-back program or your pharmacy mail-back program, or flush them down the toilet, following guidance from the Food and Drug Administration (www.fda.gov/Drugs/ResourcesForYou (more content not included)... Normal [facility] Consent for Procedure/Surger renea 06-18-2023 Consent for Procedure/Surgery [id number]#1.00TIFF [facility] Consent for Treatmenton 06-07 Consent for Treatment [id number]#1.00TIFF [facility] Multi-Wound Charton 06-18-20 Multi-Wound Chart [id number]#1.00TIFF [facility] Nursing Assessment - Woundon 06-18-2023 Nursing Assessment - Wound [id number]#1.00TIFF [facility] Nursing Note - Woundon 06-18 Nursing Note - Wound [id number]#1.00TIFF [facility] Physician Orderon 06-18-2023 Physician Order [id number]#1.00TIFF [facility] Procedure - Woundon 06-18-20 Procedure - Wound [id number]#1.00TIFF [facility] Progress Note - Woundon 06-07 Progress Note - Wound [id number]#1.00TIFF [facility] Physician Orderon 06-17-2023 Physician Order [id number]#2.00TIFF [facility] Consent for Treatmenton Consent for Treatment [id number]#1.00TIFF [facility] Multi-Wound Charton 06-11-20 Multi-Wound Chart [id number]#1.00TIFF [facility] Nursing Assessment - Woundon 06-11-2023 Nursing Assessment - Wound [id number]#1.00TIFF [facility] Nursing Note - Woundon 06-11 Nursing Note - Wound [id number]#2.00TIFF [facility] Consent for Procedure/Surger yon 06-04-2023 Consent for Procedure/Surgery [id number]#1.00CD:127 [facility] Consent for Treatmenton 05-09 Consent for Treatment [id number]#1.00CD:127 [facility] Multi-Wound Charton 06-04-20 Multi-Wound Chart [id number]#1.00CD:127 [facility] Nursing Assessment - Woundon 06-04-2023 Nursing Assessment - Wound [id number]#1.00CD:127 [facility] Nursing Note - Woundon 06-04 Nursing Note - Wound [id number]#1.00CD:127 [facility] Physician Orderon 06-04-2023 Physician Order [id number]#1.00CD:127 [facility] Procedure - Woundon 06-04-20 Procedure - Wound [id number]#1.00CD:127 [facility] Progress Note - Woundon 05-09 Progress Note - Wound [id number]#1.00CD:127 [facility] Insurance Correspondenceon 0 06-03-2023 Insurance Correspondence [id number]#1.00CD:127 [facility] Consent for Treatmenton 05-08 Consent for Treatment [id number]#1.00CD:127 [facility] Correspondence - Woundon Correspondence - Wound [id number]#1.00CD:127 [facility] Insurance Correspondenceon 0 05-25-2023 Insurance Correspondence [id number]#1.00CD:127 [facility] Insurance Correspondence [id number]#1.00CD:127 [facility] Multi-Wound Charton 05-25-20 Multi-Wound Chart [id number]#1.00CD:127 [facility] Nursing Assessment - Woundon 05-25-2023 Nursing Assessment - Wound [id number]#1.00CD:127 [facility] Nursing Note - Woundon 05-25 Nursing Note - Wound [id number]#1.00CD:127 [facility] Physician Orderon 05-25-2023 Physician Order [id number]#1.00CD:127 [facility] Procedure - Woundon 05-25-20 Procedure - Wound [id number]#1.00CD:127 [facility] Progress Note - Woundon 05-08 Progress Note - Wound [id number]#1.00CD:127 [facility] Nursing Note - Woundon 05-21 Nursing Note - Wound [id number]#1.00CD:127 [facility] Insurance Correspondenceon 0 05-18-2023 Insurance Correspondence [id number]#1.00CD:127 [facility] Insurance Correspondenceon 0 05-15-2023 Insurance Correspondence [id number]#1.00CD:127 [facility] Insurance Correspondence [id number]#1.00CD:127 [facility] Consent for Procedure/Surger yon 05-14-2023 Consent for Procedure/Surgery [id number]#1.00CD:127 [facility] Consent for Procedure/Surgery [id number]#1.00CD:127 [facility] Consent for Treatmenton Consent for Treatment [id number]#1.00CD:127 [facility] Correspondence - Woundon Correspondence - Wound [id number]#1.00CD:127 [facility] Nursing Assessment - Woundon 05-14-2023 Nursing Assessment - Wound [id number]#1.00CD:127 [facility] Nursing Note - Woundon 05-14 Nursing Note - Wound [id number]#1.00CD:127 [facility] Physician Orderon 05-14-2023 Physician Order [id number]#1.00CD:127 [facility] Procedure - Woundon 05-14-20 Procedure - Wound [id number]#1.00CD:127 [facility] Progress Note - Woundon Progress Note - Wound [id number]#1.00CD:127 [facility] Insurance Correspondenceon 0 05-13-2023 Insurance Correspondence [id number]#1.00CD:127 [facility] Nursing Note - Woundon 05-13 Nursing Note - Wound [id number]#2.00CD:127 [facility] Insurance Correspondenceon 0 05-12-2023 Insurance Correspondence [id number]#1.00CD:127 [facility] Physician Orderon 05-12-2023 Physician Order [id number]#1.00CD:127 [facility] Procedure - Woundon 05-12-20 Procedure - Wound [id number]#1.00CD:127 [facility] Consent for Treatmenton Consent for Treatment [id number]#1.00CD:127 [facility] Multi-Wound Charton 05-08-20 Multi-Wound Chart [id number]#1.00CD:127 [facility] Nursing Assessment - Woundon 05-08-2023 Nursing Assessment - Wound [id number]#1.00CD:127 [facility] Nursing Note - Woundon 05-08 Nursing Note - Wound [id number]#1.00CD:127 [facility] Consent for Treatmenton 04-09 Consent for Treatment [id number]#1.00CD:127 [facility] Multi-Wound Charton 05-07-20 Multi-Wound Chart [id number]#1.00CD:127 [facility] Nursing Assessment - Woundon 05-07-2023 Nursing Assessment - Wound [id number]#1.00CD:127 [facility] Physician Orderon 05-07-2023 Physician Order [id number]#1.00CD:127 [facility] Procedure - Woundon 05-07-20 Procedure - Wound [id number]#1.00CD:127 [facility] Progress Note - Woundon 04-09 Progress Note - Wound [id number]#1.00CD:127 [facility] Consent for Treatmenton 04-08 Consent for Treatment [id number]#1.00CD:127 [facility] Physician Orderon 05-01-2023 Physician Order [id number]#1.00CD:127 [facility] Procedure - Woundon 05-01-20 Procedure - Wound [id number]#1.00CD:127 [facility] Multi-Wound Charton 04-30-20 Multi-Wound Chart [id number]#1.00CD:127 [facility] Nursing Assessment - Woundon 04-30-2023 Nursing Assessment - Wound [id number]#1.00CD:127 [facility] Nursing Note - Woundon 04-30 Nursing Note - Wound [id number]#1.00CD:127 [facility] Outside Recordson 04-28-2023 Outside Records [id number]#1.00CD:127 [facility] Consent for Treatmenton 04-07 Consent for Treatment [id number]#1.00CD:127 Normal [facility] Nursing Note - Woundon 04-23 Nursing Note - Wound [id number]#1.00CD:127 Normal [facility] Physician Orderon 04-23-2023 Physician Order [id number]#1.00CD:127 Normal [facility] Procedure - Woundon 04-23-20 Procedure - Wound [id number]#1.00CD:127 Normal [facility] Progress Note - Woundon 04-07 Progress Note - Wound [id number]#1.00CD:127 Normal [facility] Addendum Noteon 04-22-2023 Price Checker Authentication Interface Message Text Encounter addended by: Tanvir Black MD on: 04/22/2023 9:05 AM Actions taken: Clinical Note Signed Normal [facility] BASIC METABOLIC PANELon 04-07 Anion gap [Moles/Vol] 12 mmol/L Normal 10-20 [facility] Comment on above: Performed By: #### LILLY Porter, HEPATIC ####[facility] [id number] [place], [place], Calcium [Mass/Vol] 8.6 mg/dL Normal 8.4-10.4 [facility] Comment on above: Performed By: #### LILLY Porter, HEPATIC ####[facility] [id number] [place], [place], Chloride [Moles/Vol] 104 mmol/L Normal 97-111 [facility] Comment on above: Performed By: #### Nadia Love CH8, HEPATIC ####[facility] [id number] [place], [place], CO2 [Moles/Vol] 26 mmol/L Normal 21-30 [facility] Comment on above: Performed By: #### LILLY Porter, HEPATIC ####[facility] [id number] [place], [place], Creatinine [Mass/Vol] 0.52 mg/dL Low 0.80-1.30 [facility] Comment on above: Performed By: #### LILLY Porter, HEPATIC ####[facility] [id number] [place], [place], ESTIMATED GFR (CKD-EPI) 132 mL/min/1.73sqm Normal >=60 [facility] Comment on above: Result Comment: 2020 CKD EPI Equation using Creatinine without Race Comment: Estimated glomerular filtration rate (eGFR) is calculated without a race coefficient. Values should be interpreted in the context of the patient's full clinical presentation. Reference: 1. Fran C, Akhil M, Linden SAGASTUME, et al.. A Unifying Approach for GFR Estimation: Recommendations of the NKF-ASN Task Force on Reassessing the Inclusion of Race in Diagnosing Kidney Disease. [place] Journal of Kidney Diseases 202;79(2):268-88.e1. 2. N Engl J Med 2020 Vol. 385 Issue 19 Pages 6501-4063 Performed By: #### LILLY Porter, HEPATIC ####[facility] [id number] [place], [place], Glucose [Mass/Vol] 80 mg/dL Normal 68-110 [facility] Comment on above: Performed By: #### LILLY Porter, HEPATIC ####[facility] [id number] [place], [place], Potassium [Moles/Vol] 4.0 mmol/L Normal 3.3-5.3 [facility] Comment on above: Performed By: #### LILLY Porter, HEPATIC ####[facility] [id number] [place], [place], Sodium [Moles/Vol] 138 mmol/L Normal 135-148 [facility] Comment on above: Performed By: #### LILLY Porter, HEPATIC ####[facility] [id number] [place], [place], Urea nitrogen [Mass/Vol] 7 mg/dL Low 8-22 [facility] Comment on above: Performed By: #### L D, CH8, HEPATIC ####[facility] [id number] [place], [place], Basic metabolic 2000 panelon 04-21-2023 Anion gap [Moles/Vol] 12 mmol/L 10 - 20 [facility] Calcium [Mass/Vol] 8.6 mg/dL 8.4 - 10.4 mg/dL [facility] Chloride [Moles/Vol] 104 mmol/L 97 - 111 mmol/L [facility] CO2 [Moles/Vol] 26 mmol/L 21 - 30 mmol/L [facility] Creatinine [Mass/Vol] 0.52 mg/dL Low 0.80 - 1.30 mg /dL [facility] GFR/1.73 sq M.predicted MDRD (S/P/Bld) [Vol rate/Area] 132 mL/min/{1.73_m2} - [facility] Comment on above: 2020 CKD EPI Equatio n using Creatinine without Race Comment: Estimated glomerular filtration rate (eGFR) is calculated without a race coefficient. Values should be interpreted in the context of the patient's full clinical presentation. Reference: 1. Fran C, Akhil M, Linden DC, et al.. A Unifying Approach for GFR Estimation: Recommendations of the NKF-ASN Task Force on Reassessing the Inclusion of Race in Diagnosing Kidney Disease. [place] Journal of Kidney Diseases 2021;79(2):268-88.e1. 2. N Engl J Med 2020 Vol. 385 Issue 19 Pages 6503-8878 Glucose [Mass/Vol] 80 mg/dL 68 - 110 mg/dL [facility] Potassium [Moles/Vol] 4.0 mmol/L 3.3 - 5.3 mmol /L [facility] Sodium [Moles/Vol] 138 mmol/L 135 - 148 mmol/L [facility] Urea nitrogen [Mass/Vol] 7 mg/dL Low 8 - 22 mg/d L [facility] CBC WITH DIFFERENTIALon 04-07 Basophils (Bld) [#/Vol] 0.04 10*3/uL Normal 0.00-0.20 [facility] Comment on above: Performed By: #### H EMO DNA #### [facility] [address] [facility] [place], [place] Basophils/100 WBC (Bld) 0.8 % Normal <=1.9 T [facility] Comment on above: Performed By: #### H EMO DNA #### [facility] [address] [facility] [place], [place] Eosinophils (Bld) [#/Vol] 0.12 10*3/uL Normal 0.00-0.7 0 [facility] Comment on above: Performed By: #### H EMO DNA #### [facility] [address] [facility] [place], [place] Eosinophils/100 WBC (Bld) 2.5 % Normal 0.1-4.0 [facility] Comment on above: Performed By: #### H EMO DNA #### [facility] [address] [facility] [place], [place] Erythrocyte distribution wid th (RBC) [Ratio] 19.6 % High 11.5-14.5 [facility] Comment on above: Performed By: #### H EMO DNA #### [facility] [address] [facility] [place], [place] Hematocrit (Bld) [Volume fraction] 36.3 % Low 4 1.0-53.0 [facility] Comment on above: Performed By: #### H EMO DNA #### [facility] [address] [facility] [place], [place] Hemoglobin (Bld) [Mass/Vol] 12.2 g/dL Low 13.9-16. 3 [facility] Comment on above: Performed By: #### H EMO DNA #### [facility] [address] [facility] [place], [place] Lymphocytes (Bld) [#/Vol] 1.13 10*3/uL Normal 1.00-4.8 0 The [facility] Comment on above: Performed By: #### H EMO DNA #### [facility] [address] [facility] [place], [place] Lymphocytes/100 WBC (Bld) 23.3 % Low 24.0-44.0 The [facility] Comment on above: Performed By: #### H EMO DNA #### [facility] [address] [facility] [place], [place] MCH (RBC) [Entitic mass] 34.3 pg High 26.0-34.0 The [facility] Comment on above: Performed By: #### H EMO DNA #### [facility] [address] [place] [address] [place], [place] MCHC (RBC) [Mass/Vol] 33.7 g/dL Normal 32.0-35.9 The [facility] Comment on above: Performed By: #### H EMO DNA #### [facility] [address] [place] [address] [place], [place] MCV (RBC) [Entitic vol] 102 fL High 80-100 T [facility] Comment on above: Performed By: #### H EMO DNA #### [facility] [address] [place] [address] [place], [place] MONOCYTE DISTRIBUTION WIDTH Normal The [facility] Comment on above: Performed By: #### H EMO DNA #### [facility] [address] [place] [address] [place], [place] Monocytes (Bld) [#/Vol] 0.61 10*3/uL Normal 0.20-1.00 The [facility] Comment on above: Performed By: #### H EMO DNA #### [facility] [address] [place] [address] [place], [place] Monocytes/100 WBC (Bld) 12.5 % High 2.0-11.0 T [facility] Comment on above: Performed By: #### H EMO DNA #### [facility] [address] [facility] [place], [place] Neutrophils (Bld) [#/Vol] 2.95 10*3/uL Normal 1.50-8.0 0 The [facility] Comment on above: Performed By: #### H EMO DNA #### [facility] [address] [place] [address] [place], [place] Neutrophils/100 WBC (Bld) 60.8 % Normal 31.0-76.0 The [facility] Comment on above: Performed By: #### H EMO DNA #### [facility] [address] [place] [address] [place], [place] Platelet mean volume (Bld) [ Entitic vol] 8.6 fL Normal 7.5-11.2 The [facility] Comment on above: Performed By: #### H [facility] #### [facility] [address] [facility] [place], [place] Platelets (Bld) [#/Vol] 85 10*3/uL Low 150-400 T [facility] Comment on above: Performed By: #### H [facility] #### [facility] [address] [facility] [place], [place] RBC (Bld) [#/Vol] 3.57 10*6/uL Low 4.50-5.90 The [facility] Comment on above: Performed By: #### H [facility] #### [facility] [address] [facility] [place], [place] WBC (Bld) [#/Vol] 4.9 10*3/uL Normal 4.5-11.5 The [facility] Comment on above: Performed By: #### H [facility] #### [facility] [address] [facility] [place], [place] CBC WITH DIFFERENTIALOrdered By: Yany Carrera on 04-21-2023 Basophils (Bld) [#/Vol] 0.04 10*3/uL 0.00 - 0.2 0 K/uL [facility] Basophils/100 WBC (Bld) 0.8 % NINF - 1.9 % [facility] Eosinophils (Bld) [#/Vol] 0.12 10*3/uL 0.00 - 0 .70 K/uL [facility] Eosinophils/100 WBC (Bld) 2.5 % 0.1 - 4.0 % [facility] Eryth[facility] distribution wid th (RBC) [Ratio] 19.6 % High 11.5 - 14.5 % [facility] Hematocrit (Bld) [Volume fraction] 36.3 % Low 4 1.0 - 53.0 % [facility] Hemoglobin (Bld) [Mass/Vol] 12.2 g/dL Low 13.9 - 1 6.3 g/dL [facility] Interpretation and review of laboratory results Abnormal [facility] Lymphocytes (Bld) [#/Vol] 1.13 10*3/uL 1.00 - 4 .80 K/uL [facility] Lymphocytes/100 WBC (Bld) 23.3 % Low 24.0 - 44. 0 % [facility] MCH (RBC) [Entitic mass] 34.3 pg High 26.0 - 34.0 pg [facility] MCHC (RBC) [Mass/Vol] 33.7 g/dL 32.0 - 35.9 g/ dL [facility] MCV (RBC) [Entitic vol] 102 fL High 80 - 100 fL [facility] Monocyte distribution width Auto (Bld) [Entitic vol] [facility] Monocytes (Bld) [#/Vol] 0.61 10*3/uL 0.20 - 1.0 0 K/uL [facility] Monocytes/100 WBC (Bld) 12.5 % High 2.0 - 11.0 % [facility] Neutrophils (Bld) [#/Vol] 2.95 10*3/uL 1.50 - 8 .00 K/uL [facility] Neutrophils/100 WBC (Bld) 60.8 % 31.0 - 76. 0 % [facility] Platelet mean volume (Bld) [ Entitic vol] 8.6 fL 7.5 - 11.2 fL [facility] Platelets (Bld) [#/Vol] 85 10*3/uL Low 150 - 400 K/ uL [facility] RBC (Bld) [#/Vol] 3.57 10*6/uL Low [facility] WBC (Bld) [#/Vol] 4.9 10*3/uL 4.5 - 11.5 K/uL M [facility] HAPTOGLOBINon 04-21-2023 HAPTOGLOBIN < 30 Low 36-220 The [facility] Comment on above: Performed By: #### H APT ####[facility] [id number] [place], [address] Haptoglobin [Mass/Vol] mg/dL Low 36 - 220 mg/d L [facility] Interpretation and review of laboratory results Abnormal [facility] HEPATIC FUNCTION PANELon Albumin [Mass/Vol] 3.2 g/dL Low 3.4-5.1 The [facility] Comment on above: Performed By: #### L D, CH8, HEPATIC ####[facility] [id number] [place], [place], ALK 284 IU/L High 40-200 The [facility] Comment on above: Performed By: #### LILLY Porter, HEPATIC ####S PATHOLOGY [id number] [place], [place], ALT [Catalytic activity/Vol] 38 U/L Normal 7-40 The [facility] Comment on above: Performed By: #### LILLY Porter, HEPATIC ####[facility] PATHOLOGY [id number] [place], [place], AST [Catalytic activity/Vol] 70 U/L High 7-40 The [facility] Comment on above: Performed By: #### LILLY Porter, HEPATIC ####[facility] PATHOLOGY [id number] [place], [place], Bilirubin [Mass/Vol] 7.5 mg/dL High 0.1-1.5 The [facility] Comment on above: Performed By: #### LILLY Porter, HEPATIC ####[facility] PATHOLOGY [id number] [place], [place], Bilirubin.direct [Mass/Vol] 1.89 mg/dL High 0.10-0.3 0 The [facility] Comment on above: Performed By: #### LILLY Porter, HEPATIC ####[facility] PATHOLOGY [id number] [place], [place], Protein [Mass/Vol] 7.6 g/dL Normal 6.2-8.3 The [facility] Comment on above: Performed By: #### LILLY Porter, HEPATIC ####[facility] PATHOLOGY [id number] [place], [place], Albumin [Mass/Vol] 3.2 g/dL Low 3.4 - 5.1 g/dL [facility]P [Catalytic activity/Vol] 284 U/L High [facility] ALT [Catalytic activity/Vol] 38 U/L [facility] AST [Catalytic activity/Vol] 70 U/L High [facility] Bilirubin [Mass/Vol] 7.5 mg/dL High 0.1 - 1.5 mg/dL [facility] Bilirubin.direct [Mass/Vol] 1.89 mg/dL High 0.10 - 0 .30 mg/dL [facility] Protein [Mass/Vol] 7.6 g/dL 6.2 - 8.3 g/dL [facility] LDHon 04-21-2023 LD 257 IU/L High 50-220 The [facility] Comment on above: Performed By: #### L D, CH8, HEPATIC ####S PATHOLOGY [id number] [place], [place], LDH [Catalytic activity/Vol] 257 U/L High [facility] MANUAL DIFF AND MORPHon 04-07 ANISOCYTOSIS Slight Normal [facility] Comment on above: Performed By: #### D AT #### [facility]Y LABORATORY [address] [place] [address], CELLS COUNTED TOTAL # IN BLOOD Normal The [facility] Comment on above: Performed By: #### D AT #### [facility]OR[facility]ORY [address] [place] [address], FRAGMENTED RBC Few Normal The [facility] Comment on above: Performed By: #### D AT #### [facility] PATH[facility] LAB[facility]ORY [address] [place] [address], OVALOCYTES Few Normal [facility] Comment on above: Performed By: #### D AT #### [facility]ORY [address] [place] [address], [employer] CELLS Few Normal [facility] Comment on above: Performed By: #### D AT #### [facility]ORY [address] [place] [address], TEARDROP CELLS Few Normal The [facility] Comment on above: Performed By: #### D AT #### [facility]ORY [address] [place] [address], Anisocytosis Ql (Bld) Slight [facility] Cells Counted Total (Bld) [#] [facility] Dacrocytes LM Ql (Bld) Few [facility] Ovalocytes LM Ql (Bld) Few [facility] Schistocytes LM Ql (Bld) Few [facility] Target cells LM Ql (Bld) Few [facility] No Panel InformationOrdered By: Yany Carrera on 04-21-2023 [facility] No Panel Informationon 04-21 Interpretation and review of laboratory results Abnormal [facility] Progress Noteson 04-21-2023 Price Checker Authentication Interface Message Text Patient was identified by name and date of . Monie Hernandez RN Patient at risk for falls:No Falls Risk protocol implemented: No Patient arrived to clinic for blood work. Labs obtained via venipuncture in the AC with a #23 gauge butterfly needle. drsg applied and patient tolerated procedure well. Monie Hernandez RN Normal The [facility] [employer] Price Checker Authentication Interface Message Text Hematology AND Oncology Clinic Note Reason for Consult: Hemolytic anemia Alcoholic cirrhosis Thrombocytopenia Long-term steroid use Referring Provider: Afua Umanzor MD CC: *AIHA *Liver cirrhosis *PAD History of Present Illness Will Anderson is a 37 year old male with hx of excessive alcohol use with alcoholic liver cirrhosis, presented to ER in decompensated liver failure. 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 He was discharged home on 1 milligram/kilogram of prednisone which pt stopped prematurely. He was placed on MMF 1000mg BID. Pt non complaint due to side effect. Here for MDVS, complaint of leg swelling And labs. Initial consult visit HPI Per patient, had a hard time with steroid at home. Was unable to sleep and kept him agitated almost all times. He decided to stop prednisone after 7 days. Has not had any alcohol since discharge 01/2022. Interval visit 04/21/2023 he currently feels well overall. He reports visits to the ER for leg swelling and wounds. Pt currently in wound care. Also reports he has a follow up appointment with vascular. No history of diabetes or medications. No longer taking cellcept. Denies CP, SOB, palpitations, dizziness or light-headedness. Denies having any changes in weight, appetite, or energy. No night sweats, fevers, chills, or new lumps. Eating and drinking well. Review of Systems Constitutional: Negative for chills, fever, malaise/fatigue and weight loss. HENT: Negative for congestion, hearing loss, sinus pain and tinnitus. Eyes: Negative for blurred vision and double vision. Jaundice Respiratory: Negative for cough, sputum production, shortness of breath and wheezing. Cardiovascular: Positive for leg swelling. Negative for chest pain, palpitations and orthopnea. Gastrointestinal: Negative for abdominal pain, blood in stool, constipation, diarrhea, heartburn, nausea and vomiting. Genitourinary: Negative for dysuria, frequency and urgency. Musculoskeletal: Negative for back pain, falls, joint pain and myalgias. Skin: Negative for rash. Neurological: Negative for dizziness, tingling, tremors, sensory change, focal weakness, seizures, weakness and headaches. Endo/Heme/Allergies: Does not bruise/bleed easily. Psychiatric/Behavioral: Negative for depression, substance abuse and suicidal ideas. The patient is not nervous/anxious and does not have insomnia. 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 SOCIAL HISTORY: Social History Socioeconomic History Marital status: Single Highest education level: 12th grade Tobacco Use Smoking status: Former Types: Cigarettes Smokeless tobacco: Current Types: Chew Social Determinants of Health Financial Resource Strain: High Risk (02/27/2023) Overall Financial Resource Strain (CARDIA) Difficulty of Paying Living Expenses: Very hard Food Insecurity: Food Insecurity Present (02/27/2023) Hunger Vital Sign Worried About Running Out of Food in the Last Year: Patient refused Ran Out of Food in the Last Year: Sometimes true Transportation Needs: No Transportation Needs (02/27/2023) PRAPARE - Transportation Lack of Transportation (Medical): No Lack of Transportation (Non-Medical): No Physical Activity: Sufficiently Active (02/27/2023) Exercise Vital Sign Days of Exercise per Week: 7 days Minutes of Exercise per Session: 120 min Stress: Stress Concern Present (02/27/2023) [employer] [place] [employer] - Occupational Stress Questionnaire Feeling of Stress : Very much Social Connections: Socially Isolated (02/27/2023) Social Connection and Isolation Panel [NHANES] Frequency of Communication with Friends and Family: More than three times a week Frequency of Social Gatherings with Friends and Family: Patient refused Attends Quaker Services: Never Active Member of Clubs or Organizations: No Attends Club or Organization Meetings: Never Marital Status: Never Intimate Partner Violence: Not At Risk (02/27/2023) Humiliation, Afraid, Rape, and Kick questionnaire Fear of Current or Ex-Partner: No Emotionally Abused: No Physically Abused: No Sexually Abused: No CURRENT MEDICATIONS: Current Outpatient Medications Medication Sig Dispense Refill sulfamethoxazole-trimethop rim 800-160 MG (Bactrim DS) 800-160 MG per tablet Take 1 Tablet by mouth every Thursday, , Thursday. 12 Tablet 3 lidocaine (LIDODERM) 5 % patch Place 1 Patch on the skin every 24 hours. 10 Patch 3 ondansetron (ZOFRAN-ODT) 4 MG disintegrating tablet Take 1 Tablet by mouth every 12 hours as needed for Nausea. Place 1 tablet under tongue as needed for nausea. 30 Tablet 0 lactulos (more content not included)... Normal [facility] [employer]er Authentication Interface Message Text Patient was identified by name and date of . Gustabo Isaak Pittman Body Mass Index is 27.08. Body Surface Area is 1.90 square meters according to the formula of Eli and Eli. Patient at risk for falls:No Falls Risk protocol implemented: No Blood pressure 136/67, pulse 79, temperature 97.7 ???F (36.5 ???C), resp. rate 20, height 5' 7 (1.702 m), weight 172 lb 14.4 oz (78.4 kg), SpO2 100 %. Gustabo Pittman Normal [facility] [employer] Checker Authentication Interface Message Text Patient was identified by name and date of . Gustabo Hernandeztman Toya Body Mass Index is 27.08. Body Surface Area is 1.90 square meters according to the formula of Eli and Eli. Patient at risk for falls:No Falls Risk protocol implemented: No Blood pressure 136/67, pulse 79, temperature 97.7 ???F (36.5 ???C), resp. rate 20, height 5' 7 (1.702 m), weight 172 lb 14.4 oz (78.4 kg), SpO2 100 %. Gustabo Pittman Normal [facility] RETICULOCYTE COUNTon 04-21-2 023 IMMATURE RETICULOCYTE FRACTION 0.46 Normal 0.30- 0.50 The [facility] Comment on above: Performed By: #### H EMO DNA #### [facility] [address] [facility] [place] [place] RETIC # 0.09 M/uL High 0.03-0.08 [facility] Comment on above: Performed By: #### H EMO DNA #### [facility] [address] [facility] [place], [place] RETIC % 2.6 % High 0.5-1.5 [facility] Comment on above: Performed By: #### H EMO DNA #### [facility] [address] [facility] [place], [place] Immature reticulocytes/Total reticulocytes (Bld) 0.46 % 0.30 - 0.50 [facility] Interpretation and review of laboratory results Abnormal [facility] Reticulocytes (Bld) [#/Vol] 0.09 10*3/uL High [facility] Reticulocytes/100 RBC (Bld) 2.6 % High 0.5 - 1. 5 % [facility] US PVR Lower EXT Complete Bi laton 04-20-2023 US PVR Lower EXT Complete Bilat Exam Date/Time: 04/16/2023 12:25 EDT Reason for Exam: R09.89 Report IMPRESSION: NO EVIDENCE OF SIGNIFICANT ARTERIAL STENOTIC DISEASE INVOLVING THE RIGHT AND LEFT LEGS. CLINICAL HISTORY: R09.89. COMPARISON: None available. FINDINGS: On the right, the brachial systolic pressure is 129 , the high thigh pressure is 170 , the low thigh pressure is 168 , the calf pressure is 160 , the posterior tibial ankle pressure is 163 , the dorsalis pedis ankle pressure is 152 , and the digit pressure is 132 . The high thigh-brachial index is 1.31. The ankle-brachial index at the posterior tibial artery is 1.25 The dorsalis pedis-brachial index is 1.17. The toe-brachial index is 1.02, with normal 0.7 or greater. The plethysmography waveforms are normal. On the left, the brachial systolic pressure is 130 , the high thigh pressure is 160 , the low thigh pressure is 175 , the calf pressure is 148 , the posterior tibial ankle pressure is 159 , the dorsalis pedis ankle pressure is 132 , and the digit pressure is 137 . The high thigh-brachial index is 1.23. The ankle-brachial index at the posterior tibial artery is 1.22 The dorsalis pedis to brachial index is 1.02, with normal 1.0 or greater. The toe-brachial index is 1.05, with normal 0.7 or greater. Report The plethysmography waveforms are normal. Ordering Provider: Teddy Hitchcock FINAL REPORT Dictated: 04/20/2023 12:27 pm Melvin Varghese MD Signed (Electronic Signature): 04/20/2023 12:27 pm Signed by: Melvin Varghese MD Transcribed by: 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, [facility] Consent for Treatmenton 04-07 Consent for Treatment [id number]#1.00CD:127 [facility] Consent for Procedure/Surger yon 04-13-2023 Consent for Procedure/Surgery [id number]#1.00CD:127 [facility] Consent for Treatmenton Consent for Treatment [id number]#1.00CD:127 [facility] Insurance Correspondenceon 0 04-13-2023 Insurance Correspondence [id number]#1.00CD:127 [facility] Multi-Wound Charton 04-13-20 Multi-Wound Chart [id number]#1.00CD:127 [facility] Nursing Assessment - Woundon 04-13-2023 Nursing Assessment - Wound [id number]#1.00CD:127 [facility] Nursing Note - Woundon 04-13 Nursing Note - Wound [id number]#1.00CD:127 [facility] Physician Orderon 04-13-2023 Physician Order [id number]#1.00CD:127 [facility] Physician Order [id number]#1.00CD:127 [facility] Procedure - Woundon 04-13-20 Procedure - Wound [id number]#1.00CD:127 [facility] Progress Note - Woundon Progress Note - Wound [id number]#1.00CD:127 [facility] Consent for Treatmenton 03-08 Consent for Treatment [id number]#1.00CD:127 [facility] Multi-Wound Charton 03-30-20 Multi-Wound Chart [id number]#1.00CD:127 [facility] Nursing Assessment - Woundon 03-30-2023 Nursing Assessment - Wound [id number]#1.00CD:127 [facility] Nursing Note - Woundon 03-30 Nursing Note - Wound [id number]#1.00CD:127 [facility] Physician Orderon 03-30-2023 Physician Order [id number]#1.00CD:127 [facility] Procedure - Woundon 03-30-20 Procedure - Wound [id number]#1.00CD:127 [facility] Progress Note - Woundon 03-08 Progress Note - Wound [id number]#1.00CD:127 [facility] Discharge Instructionson Discharge Instructions [id number]#1.00CD:127 Normal [facility] Auto Diffon 03-22-2023 Basophils/100 WBC (Bld) 0.4 % Normal 0.0-2.0 [facility] Comment on above: Order Comment: Order Added by Discern Expert. Performed By: #### 2 [id number], [id number], [id number], 3879052, 6220244, 5179947, [id number] #### [facility] [address] [place] [address] Basophils/Leukocytes Auto (B ld) [Pure # fraction] 0.0 E9/L Normal 0.0-0.2 [facility] Comment on above: Order Comment: Order Added by Discern Expert. Performed By: #### 2 [id number], [id number], 10863126, 7061386, 9274834, 6042862, [id number] #### [facility] [address] [place] [address] Eosinophils/100 WBC (Bld) 1.3 % Normal 0.0-8.0 [facility] Comment on above: Order Comment: Order Added by Discern Expert. Performed By: #### 2 [id number], 1548404, 55753175, 3767343, 3648122, 3968691, [id number] #### [facility] [address] [place] [address] Eosinophils/Leukocytes Auto (Bld) [Pure # fraction] 0.1 E9/L Normal 0.0-0.5 [facility] Comment on above: Order Comment: Order Added by Discern Expert. Performed By: #### 2 [id number], 9167239, 77791054, 2093723, 5620003, 4043759, [id number] #### [facility] [address] [place] [address] Lymphocytes/100 WBC (Bld) 14.6 % Normal 14.0-50.0 [facility] Comment on above: Order Comment: Order Added by Discern Expert. Performed By: #### 2 429170, 6001766, 69146652, 3427660, 7813223, 1150009, [id number] #### [facility] [address] [place] [address] Lymphocytes/Leukocytes Auto (Bld) [Pure # fraction] 1.5 E9/L Normal 1.0-4.0 [facility] Comment on above: Order Comment: Order Added by Discern Expert. Performed By: #### 2 698531, 5497801, 50842485, 3734986, 4722303, 7024306, [id number] #### [facility] [address] [place] [address] Monocytes/100 WBC (Bld) 7.9 % Normal 4.0-14.0 [facility] Comment on above: Order Comment: Order Added by Discern Expert. Performed By: #### 2 551216, 6496245, 54688695, 6432801, 3081457, 8215322, 69714390 #### [facility] [address] [place] [address] Monocytes/Leukocytes Auto (B ld) [Pure # fraction] 0.8 E9/L Normal 0.2-1.0 [facility] Comment on above: Order Comment: Order Added by Discern Expert. Performed By: #### 2 684430, 5033478, 35710752, 4317855, 6990721, 3820891, 09034147 #### [facility] [address] [place] [address] Neutrophils/100 WBC (Bld) 75.8 % High 36.0-75.0 [facility] Comment on above: Order Comment: Order Added by Discern Expert. Performed By: #### 2 810193, 0581616, 78553910, 3778362, 6171502, 3504769, 96601098 #### [facility] [address] [place] [address] Neutrophils/Leukocytes Auto (Bld) [Pure # fraction] 7.7 E9/L High 2.0-7.5 [facility] Comment on above: Order Comment: Order Added by Discern Expert. Performed By: #### 2 197932, 1116746, 81428947, 5618855, 6208309, 5190992, 30405963 #### [facility] [address] [place] [address] CBC w/ Auto Diffon 3 Erythrocyte distribution wid th (RBC) [Ratio] 15.4 % High 10.9-14.2 [facility] Comment on above: Performed By: #### 2 906452, 0034280, 54702662, 8812821, 2561859, 5562628, 23236005 #### [facility] [address] [place] [address] Hematocrit (Bld) [Volume fraction] 30.1 % Low 3 7.7-49.0 [facility] Comment on above: Performed By: #### 2 948411, 3396491, 44384448, 6571892, 4792327, 6692323, 30921045 #### [facility] [address] [place] [address] Hemoglobin (Bld) [Mass/Vol] 10.3 g/dL Low 13.5-17. 5 [facility] Comment on above: Performed By: #### 2 217022, 5026471, 13278264, 5213168, 3489151, 9223297, 76970072 #### [facility] [address] [place] [address] MCH (RBC) [Entitic mass] 34.1 pg High 27.0-34.0 [facility] Comment on above: Performed By: #### 2 341955, 8994817, 19115743, 4014036, 7871191, 4225037, 94826627 #### [facility] [address] [place] [address] MCHC (RBC) [Mass/Vol] 34.2 g/dL Normal 31.4-36.0 [facility] Comment on above: Performed By: #### 2 113561, 5443146, 91630997, 7849567, 3505663, 0763717, 64387891 #### [facility] [address] [place] [address] MCV (RBC) [Entitic vol] 99.4 fL Normal 80.0-100.0 [facility] Comment on above: Performed By: #### 2 200502, 3646471, 41692956, 4118388, 5866641, 5953305, 40268164 #### [facility] [address] [place] [address]85 Platelet mean volume (Bld) [Entitic vol] 8.6 fL Normal 6.4-10.8 [facility] Comment on above: Performed By: #### 2 858904, 6899804, 36649495, 6326680, 5323277, 3863655, 33746411 #### [facility] [address] [place] [address] Platelets (Bld) [#/Vol] 87.0 E9/L Low 150.0-500.0 [facility] Comment on above: Performed By: #### 2 826716, 5362346, 20540994, 5337507, 1415271, 4657369, 72664437 #### [facility] [address] [place], [place] [address] RBC (Bld) [#/Vol] 3.0 E12/L Low 4.3-5.9 [facility] Comment on above: Performed By: #### 2 215788, 6509107, 33929626, 4449644, 8799108, 8842753, 30493783 #### [facility] [address] [place] [address] WBC corrected for nucl RBC A uto (Bld) [#/Vol] 10.1 E9/L Normal 4.0-11.0 [facility] Comment on above: Performed By: #### 2 823568, 5092123, 83101039, 4927707, 1922906, 8603636, 06691792 #### [facility] [address] [place], [place] [address] CHEMISTRYOrdered By: SYSTEM SYSTEM on 03-22-2023 Albumin [Mass/Vol] 2.5 g/dL Low 3.3 - 5.0 gm/dL [facility] Albumin/Globulin [Mass ratio] 0.5 {ratio} Low 1.1 - 2.2 [facility] ALP [Catalytic activity/Vol] 158 [iU]/d High 21 - 98 Int._Unit/L [facility] ALT No additional P-5'-P [Catalytic activity/Vol] 50 [iU]/d High 6 - 46 Int._Unit/L [facility] Anion gap [Moles/Vol] 8 mmol/L Normal 6 - 16 mEq/L [facility] AST [Catalytic activity/Vol] 80 [iU]/d High 5 - 43 Int._Unit/L [facility] Bilirubin [Mass/Vol] 8.1 mg/dL High 0.0 - 1.1 mg/dL [facility] Calcium [Mass/Vol] 8.2 mg/dL Low 8.9 - 11.1 mg/dL [facility] Chloride [Moles/Vol] 103 mmol/L Normal 101 - 111 mmol/ L [facility] CO2 [Moles/Vol] 25 mmol/L Normal 21 - 31 mmol/L [facility] Creatinine [Mass/Vol] 0.6 mg/dL Normal 0.5 - 1.3 mg/d L [facility] GFR/1.73 sq M.predicted among non-blacks MDRD (S/P/Bld) [Vol rate/Area] 127 mL/min/1.73 m2 Normal >=59mL/min/1.73 m2 [facility] Chem S Globulin (S) [Mass/Vol] 4.7 g/dL High 1.4 - 4.0 gm /dL [facility] Glucose [Mass/Vol] 146 mg/dL Normal 55 - 199 mg/dL [facility] Lactate [Mass/Vol] 2.0 mmol/L Normal 0.5 - 2.2 mmol/L [facility] Potassium [Moles/Vol] 3.0 mmol/L Low 3.5 - 5.3 mmol /L [facility] Protein [Mass/Vol] 7.2 g/dL Normal 6.0 - 7.8 gm/dL [facility] Sodium [Moles/Vol] 133 mmol/L Low 135 - 145 mmol/L [facility] Remisol Troponin I.cardiac [Mass/Vol] 10.30 pg/mL Low 15.90 - 38.40 pg/mL [facility] Remisol Urea nitrogen [Mass/Vol] 7 mg/dL Normal 5 - 21 mg/d L [facility] Remisol Urea nitrogen/Creatinine [Mass ratio] 12 mg/mg Normal 10 - 20 [facility] Remisol CMPon 03-22-2023 Albumin [Mass/Vol] 2.5 g/dL Low 3.3-5.0 [facility] Comment on above: Performed By: #### 2 895460, 5540201, 69054042, 7537291, 8949475, 5136920, 39112082 ####[facility] [address] [place] [address] Albumin/Globulin (S) [Mass conc ratio] 0.5 Low 1.1-2.2 [facility] Comment on above: Performed By: #### 2 322987, 3773796, 21789731, 2180978, 1848439, 3714325, 75617620 ####[facility] [address] [place] [address] ALP [Catalytic activity/Vol] 158 Int._Unit/L High 21 -98 [facility] Comment on above: Performed By: #### 2 946045, 1273344, 94468566, 4721300, 0127172, 7907053, 72741068 ####[facility] [address] [place] [address] ALT No additional P-5'-P [Catalytic activity/Vol] 50 Int._Unit/L High 6-46 [facility] Comment on above: Performed By: #### 2 724480, 1144424, 00903373, 4830442, 3607877, 5674869, 11834623 ####[facility] [address] [place] [address] AST [Catalytic activity/Vol] 80 Int._Unit/L High 5-4 3 [facility] Comment on above: Performed By: #### 2 391990, 7512740, 75526035, 1935029, 6786551, 7342789, 54504538 ####[facility] [address] [place] [address] Bilirubin [Mass/Vol] 8.1 mg/dL High 0.0-1.1 [facility] Comment on above: Performed By: #### 2 463281, 2700755, 86108166, 4632402, 2734744, 5957231, 81081007 ####[facility] [address] [place] [address] Creatinine [Mass/Vol] 0.6 mg/dL Normal 0.5-1.3 [facility] Comment on above: Performed By: #### 2 049863, 6447590, 31853981, 3236109, 0617841, 6236680, 27306305 ####[facility] [address] [place] [address] Globulin (S) [Mass/Vol] 4.7 g/dL High 1.4-4.0 [facility] Comment on above: Performed By: #### 2 910488, 9857363, 86776008, 7366485, 4843413, 5788289, 57379602 ####[facility] [address] [place] [address] Protein [Mass/Vol] 7.2 g/dL Normal 6.0-7.8 [facility] Comment on above: Performed By: #### 2 891936, 3468800, 75400382, 9497207, 0740774, 9746342, 99259104 ####[facility] [address] [place] [address] Urea nitrogen [Mass/Vol] 7 mg/dL Normal 5-21 [facility] Comment on above: Performed By: #### 2 202498, 0057763, 76398800, 6022732, 8782570, 7637951, 69770365 ####[facility] [address] [place] [address] Urea nitrogen/Creatinine [Ma ss ratio] 12 No Units Normal 10-20 [facility] Comment on above: Performed By: #### 2 601591, 8466432, 31983705, 9599764, 1479253, 3604859, 58078581 ####[facility] [address] [place] [address] Anion gap [Moles/Vol] 8 mmol/L Normal 6-16 [facility] Comment on above: Performed By: #### 2 065173, 3252646, 79968327, 1311945, 3988741, 2809879, 95936901 ####[facility] [address] [place] [address] Calcium [Mass/Vol] 8.2 mg/dL Low 8.9-11.1 [facility] Comment on above: Performed By: #### 2 698733, 7511278, 13201976, 9320335, 6494621, 7338628, 93908778 ####[facility] [address] [place] [address] Chloride [Moles/Vol] 103 mmol/L Normal 101-111 [facility] Comment on above: Performed By: #### 2 041212, 6155450, 91504662, 8163839, 0160671, 0973656, 03200533 ####[facility] [address] [place] [address] CO2 [Moles/Vol] 25 mmol/L Normal 21-31 [facility] Comment on above: Performed By: #### 2 919401, 2636160, 59780595, 2246875, 1464409, 1222578, 07195715 ####[facility] [address] [place] [address] Glucose [Mass/Vol] 146 mg/dL Normal 55-199 [facility] Comment on above: Result Comment: If t his glucose result represents a fasting glucose, interpretation should refer to the following reference range: 55-99 mg/dL Performed By: #### 2 429398, 4267889, 01807060, 6476238, 9758434, 3489370, 04571410 ####[facility] [address] [place] [address] Potassium [Moles/Vol] 3.0 mmol/L Low 3.5-5.3 [facility] Comment on above: Performed By: #### 2 265154, 5321271, 75217621, 0715237, 0548147, 9270374, 13707030 ####[facility] [address] [place] [address] Sodium [Moles/Vol] 133 mmol/L Low 135-145 [facility] Comment on above: Performed By: #### 2 721814, 5732225, 31212545, 6340475, 1765220, 3309858, 49252888 ####[facility] [address] [place] [address] COAGULATIONOrdered By: Mayuri Russell on 03-22-2023 aPTT Coag (PPP) [Time] 42.0 s High 25.1 - 36.5 second(s) [facility] Auto Coag INR Coag (PPP) [Relative time] 2.6 {INR} Invalid Interpretation Code [facility] Auto Coag PT Coag (PPP) [Time] 30.4 s High 9.4 - 12.5 second(s) [facility] Auto Coag Consent for Treatmenton 03-07 Consent for Treatment [id number] Normal [facility] ED Clinical Summaryon 2022 ED Clinical Summary [address] [address] ED Clinical Summary Person Information Name: WILL ANDERSON [place] Age: 37 Years : 1985 Sex: Male Language: Greenlandic PCP: THEO BURKS Marital Status: Single Visit Id: Visit Reason: Chills; Vomiting; Nausea; Cellulitis - Leg; RIGHT LEG INFECTION Speciality: Acuity: 2 Enc Type: Emergency Med Service: Emergency Arrival: 03/22/2023 19:35:03 Discharge: 03/22/2023 21:56:53 LOS: 000 02:21 Checkin: 03/22/2023 19:35:03 Checkout: 03/22/2023 21:56:53 Dispo Type: Home (Routine DC) EVENTS: Event Name Event Status Request Date/Time Start Date/Time Complete Date/Time Arrive Complete 03/22/2023 19:35:03 03/22/2023 19:35:03 03/22/2023 19:35:03 Document Home Meds Request 03/22/2023 19:35:03 Triage Complete 03/22/2023 19:35:03 03/22/2023 20:14:07 03/22/2023 20:14:07 Registration Complete 03/22/2023 19:38:37 03/22/2023 19:38:37 03/22/2023 19:38:37 Reg Complete Request 03/22/2023 19:38:37 Bed Assign Complete 03/22/2023 20:15:35 03/22/2023 20:15:35 03/22/2023 20:15:35 Dr Exam Complete 03/22/2023 20:15:35 03/22/2023 20:17:36 03/22/2023 20:17:36 RN Exam Complete 03/22/2023 20:15:35 03/22/2023 20:20:42 03/22/2023 20:20:42 Registration Request 03/22/2023 20:17:36 EKG Complete 03/22/2023 20:19:20 03/22/2023 20:50:58 Meds Admin Complete 03/22/2023 20:19:20 03/22/2023 20:36:30 Pending Labs Request 03/22/2023 20:19:20 Lab Request 03/22/2023 20:19:20 RT Request 03/22/2023 20:19:20 Pending Labs Complete 03/22/2023 20:46:41 03/22/2023 20:46:41 03/22/2023 21:05:06 Lab Complete 03/22/2023 20:46:41 03/22/2023 20:46:41 03/22/2023 21:05:06 Pending Labs Complete 03/22/2023 20:49:58 03/22/2023 20:49:58 03/22/2023 20:50:05 Lab Complete 03/22/2023 20:49:58 03/22/2023 20:49:58 03/22/2023 20:50:05 Pending Labs Request 03/22/2023 21:06:04 Lab Request 03/22/2023 21:06:04 Meds Admin Complete 03/22/2023 21:40:34 03/22/2023 21:44:40 Discharge Complete 03/22/2023 21:41:43 03/22/2023 21:57:13 03/22/2023 21:57:13 Transfer Complete 03/22/2023 21:57:13 03/22/2023 21:57:13 03/22/2023 21:57:13 ADDRESS: [address] [place] [id number] PHYS DOC NOTES: MEDICAL INFORMATION: Prescriptions Given: New Medications [id number], [address], [place] [id number], [phone] ondansetron (Zofran ODT 4 mg Tab-Dis) 1 Tablets By Mouth every 8 hours as needed Nausea/Vomiting. Refills: 0. sulfamethoxazole-trimethoprim (Bactrim D.S. 800 mg-160 mg Tab) 1 Tablets By Mouth 2 times a day for 14 Days. Refills: 0. Medications to Continue with No Changes Other Medications clindamycin (clindamycin 150 mg Cap) 2 Capsules By Mouth 4 times a day. Refills: 0. PATIENT EDUCATION INFORMATION: Instructions: Cellulitis, Adult Follow up: With: Address: When: THEO BURKS In 3 days DIAGNOSIS: Cellulitis Normal [facility] ED Note-Physicianon 03-22-20 ED Note-Physician Basic Information Time Seen: Martin Reese DO 03/22/2023 20:17 Chief Complaint pt. c/o R leg wound ongoing with hx of cellultits. failed out pt. po antibiotics. R leg swelling and redness noted. pt. is jaundice with questionable cirrhosis vs. hep C. fever, chills, N/V since yesterday. History of Present Illness HPI: Patient is a 37-year-old male past ministry of alcohol abuse and liver disease who presents the ED for suspected infection of his right lower leg. Patient states that he has had problems with wounds on his lower extremities particularly his right leg. He states that he follows with wound care for this. He states that the pain in March he was diagnosed with cellulitis and started on antibiotic. He states that his symptoms greatly improved over the 1 week course of antibiotic but a few days after the antibiotic stopped he started getting return of the redness and swelling. He states that he is now having some nausea and chills as well. ROS: Pertinent review of systems conducted and is negative except as noted above. Physical exam: General: nontoxic appearing and in no distress HEENT: Mucous membranes moist Neuro: awake and alert Neck: supple, trachea midline Card: Heart regular rate and rhythm no murmur Resp: Lungs clear to auscultation no wheeze or rhonchi Abd: Soft and nondistended. No tenderness to palpation with no rebound or guarding. Ext: There is a small 1 cm diameter ulceration on the lateral aspect of the right trent. There is surrounding erythema to the level of the knee as well as soft tissue swelling and heat to the touch. No palpable fluctuance or drainage. Physical Exam Vitals & Measurements T: 36.5 ?C(Oral) HR: 92(Peripheral) RR: 18 BP: 151/84 SpO2: 100% HT: 170 cm WT: 75.2 kg BMI: 26.02 Medical Decision Making MEDICAL DECISION MAKING Number and Complexity of Problems Differential Diagnosis: [] [facility] Data External documents reviewed: N/A My EKG interpretation: Noted in chart if applicable My CT interpretation: N/A My X-ray interpretation: Noted in chart if applicable My Ultrasound interpretation: N/A Decision rules/scores evaluated: N/A Discussed with: N/A Treatment and Disposition ED Course: Patient is nontoxic-appearing and in no distress. He does have clinical findings of cellulitis of his right lower extremity. There is no drainable abscess at this time. We will obtain blood work and blood cultures here in the ED. Blood work is overall reassuring. He had good relief when he was on Bactrim at the beginning of this month but feels like he was stopped short because several days after he stopped the antibiotic his symptoms returned. We will start him on a longer course this time and have him follow-up closely with wound care as an outpatient basis. Shared decision making: As above Code status: N/A Assessment/Plan Cellulitis (L03.90: Cellulitis, unspecified) Orders: ondansetron, 4 mg = 1 tab(s), Oral, q8hr, PRN Nausea/Vomiting, # 20 tab(s), Refills(s) 0, Pharmacy: [id number], 170, cm, 03/22/23 20:14:00 EDT, Height/Length Dosing, 75.2, kg, 03/22/23 20:14:00 EDT, Weight Dosing ondansetron, 4 mg = 2 mL, Injection, IV Push, Once, Stop date 03/22/23 20:18:00 EDT, STAT, Start date 03/22/23 20:18:00 EDT, 03/22/23 20:18:00 EDT potassium chloride, 40 mEq = 2 tab(s), Tab-ER, Oral, Once, Stop date 03/22/23 21:40:00 EDT, STAT, Start date 03/22/23 21:40:00 EDT, 03/22/23 21:40:00 EDT Sodium Chloride 0.9% intravenous solution, 1,000 mL, Soln-IV, IV, Once, Stop date 03/22/23 20:19:00 EDT, STAT, Start date 03/22/23 20:19:00 EDT, Infuse over 61, minute(s) sulfamethoxazole-trimethoprim, 1 tab(s), Oral, BID for 14 day(s), 28 tab(s), Refill(s) 0, [id number], 170, cm, 03/22/23 20:14:00 EDT, Height/Length Dosing, 75.2, kg, 03/22/23 20:14:00 EDT, Weight Dosing sulfamethoxazole-trimethoprim, 1 tab(s), Tab, Oral, Once, Stop date 03/22/23 21:40:00 EDT, STAT, Start date 03/22/23 21:40:00 EDT Automated Diff Blood Culture Charcoal Blood Culture Charcoal CBC w/ Auto Diff Comprehensive Metabolic Panel Continuous Pulse Oximetry ECG 12 Lead Adult ED Cardiac Monitoring eGFR Lactic Acid Lactic Acid Lactic Acid Oxygen Therapy PT & PTT Troponin Medications Administered Given NS 1000 ml Bolus, 1000 mL, IV Zofran 4 mg/2 mL Injection, 4 mg, IV Push Disposition Plan Discharge Prescription List Prescriptions Bactrim D.S. 800 mg-160 mg Tab, 1 tab(s), Oral, BID Zofran ODT 4 mg Tab-Dis, 4 mg= 1 tab(s), Oral, q8hr, PRN Follow-up With When Contact Information THEO BURKS In 3 days Additional Instructions: Patient Education Cellulitis, Adult Problem List/Past Medical History Ongoing Alcohol abuse Historical Denies Procedure/Surgical History Jaw. Medications Inpatient NS 1000 ml Bolus, 1000 mL, IV, Once Zofran 4 mg/2 mL Injection, 4 mg= 2 mL, IV Push, Once Home clindamycin 150 mg Cap, 300 mg= 2 cap(s), Oral, QID Allergies amoxicillin (more content not included)... Normal [facility] Comment on above: Result Comment: Elec tronically Signed By: Martin Reese DO\.br\Date and Time Signed: 03/22/23 21:43 EDT ED Patient Education Noteon 03-22-2023 ED Patient Education Note Infectious Disease Cellulitis, Adult Cellulitis is a skin infection. The infected area is usually warm, red, swollen, and tender. This condition occurs most often in the arms and lower legs. The infection can travel to the muscles, blood, and underlying tissue and become serious. It is very important to get treated for this condition. What are the causes? Cellulitis is caused by bacteria. The bacteria enter through a break in the skin, such as a cut, burn, insect bite, open sore, or crack. What increases the risk? This condition is more likely to occur in people who: ? Have a weak body defense system (immune system). ? Have open wounds on the skin, such as cuts, amezquita, bites, and scrapes. Bacteria can enter the body through these open wounds. ? Are older than 60 years of age. ? Have diabetes. ? Have a type of long-lasting (chronic) liver disease (cirrhosis) or kidney disease. ? Are obese. ? Have a skin condition such as: ? Itchy rash (eczema). ? Slow movement of blood in the veins (venous stasis). ? Fluid buildup below the skin (edema). ? Have had radiation therapy. ? Use IV drugs. What are the signs or symptoms? Symptoms of this condition include: ? Redness, streaking, or spotting on the skin. ? Swollen area of the skin. ? Tenderness or pain when an area of the skin is touched. ? Warm skin. ? A fever. ? Chills. ? Blisters. How is this diagnosed? This condition is diagnosed based on a medical history and physical exam. You may also have tests, including: ? Blood tests. ? Imaging tests. How is this treated? Treatment for this condition may include: ? Medicines, such as antibiotic medicines or medicines to treat allergies (antihistamines). ? Supportive care, such as rest and application of cold or warm cloths (compresses) to the skin. ? Hospital care, if the condition is severe. The infection usually starts to get better within 1?2 days of treatment. Follow these instructions at home: Medicines ? Take hciw-gsg-ufzdkll and prescription medicines only as told by your health care provider. ? If you were prescribed an antibiotic medicine, take it as told by your health care provider. Do not stop taking the antibiotic even if you start to feel better. General instructions ? Drink enough fluid to keep your urine pale yellow. ? Do not touch or rub the infected area. ? Raise (elevate) the infected area above the level of your heart while you are sitting or lying down. ? Apply warm or cold compresses to the affected area as told by your health care provider. ? Keep all follow-up visits as told by your health care provider. This is important. These visits let your health care provider make sure a more serious infection is not developing. Contact a health care provider if: ? You have a fever. ? Your symptoms do not begin to improve within 1?2 days of starting treatment. ? Your bone or joint underneath the infected area becomes painful after the skin has healed. ? Your infection returns in the same area or another area. ? You notice a swollen bump in the infected area. ? You develop new symptoms. ? You have a general ill feeling (malaise) with muscle aches and pains. Get help right away if: ? Your symptoms get worse. ? You feel very sleepy. ? You develop vomiting or diarrhea that persists. ? You notice red streaks coming from the infected area. ? Your red area gets larger or turns dark in color. These symptoms may represent a serious problem that is an emergency. Do not wait to see if the symptoms will go away. Get medical help right away. Call your local emergency services (911 in the [place] Do not drive yourself to the hospital. Summary ? Cellulitis is a skin infection. This condition occurs most often in the arms and lower legs. ? Treatment for this condition may include medicines, such as antibiotic medicines or antihistamines. ? Take uhih-iag-roltqns and prescription medicines only as told by your health care provider. If you were prescribed an antibiotic medicine, do not stop taking the antibiotic even if you start to feel better. ? Contact a health care provider if your symptoms do not begin to improve within 1?2 days of starting treatment or your symptoms get worse. ? Keep all follow-up visits as told by your health care provider. This is important. These visits let your health care provider make sure that a more serious infection is not developing. This information is not intended to replace advice given to you by your health care provider. Make sure you discuss any questions you have with your health care provider. Document Revised: 06/05/2022 Document Reviewed: 06/05/2022 [employer] Patient Education ? 2022 [employer] Normal [facility] ED Patient Summaryon 023 ED Patient Summary [place] [id number] Patient Discharge Instructions Person Information Name: WILL ANDERSON Age: 37 Years Arrival Date: 03/22/2023 19:35:03 Discharge Diagnosis: Cellulitis Primary Care Physician: THEO BURKS Provider Information Primary Provider: Martin Reese DO [employer] Operator:None The exam and treatment you received in the Emergency Department were for an urgent problem and are not intended as complete care. It is important that you follow up with a doctor, nurse practitioner, or physician?s ophthalmic medical assistant for ongoing care. If your symptoms become worse or you do not improve as expected and you are unable to reach your usual health care provider, you should return to the Emergency Department. We are available 24 hours a day. WILL ANDERSON has been given the following list of patient education materials, prescriptions and follow-up instructions: Follow-up Instructions: With: Address: When: THEO BURKS In 3 days In the event that this physician does not participate in your insurance network, please consult with your insurance company to find a nearby participating provider. Patient Education Materials: Cellulitis, Adult A MESSAGE TO ALL PATIENTS REGARDING OPIOIDS PRESCRIPTION OPIOIDS: WHAT YOU NEED TO KNOW Prescription opioids can be used to help relieve zghhcywd-sd-prprks pain and are often prescribed following a surgery or injury, or for certain health conditions. These medications can be an important part of the treatment but also come with serious risks. It is important to work with your healthcare provider to make sure you are getting the safest, most effective care. WHAT ARE THE RISKS AND SIDE EFFECTS OF OPIOID USE? Prescription opioids carry serious risks of addiction and overdose, especially with prolonged use. An opioid overdose, often marked by slowed breathing, can cause sudden . The use of prescription opioids can have a number of side effects as well, even when taken as directed: ? Tolerance?meaning you might need to take more of the medication for the same pain relief ? Physical dependence?meaning you have symptoms of withdrawal when a medication is stopped ? Increased sensitivity to pain ? Constipation ? Nausea, vomiting, and dry mouth ? Sleepiness and dizziness ? Confusion ? Depression ? Low levels of testosterone that can result in lower sex drive, energy, and strength ? Itching and sweating RISKS ARE GREATER WITH: ? History of drug misuse, substance use disorder, or overdose ? Mental health conditions (such as depression or anxiety) ? Sleep apnea ? Older age (65 years and older) ? Avoid alcohol while taking prescription opioids. Also, unless specifically advised by your health care provider, medications to avoid include: ? Benzodiazepines (such as Xanax or Valium) ? Muscle relaxants (such as Soma or Flexeril) ? Hypnotics (such as Ambien or Lunesta) ? Other prescription opioids KNOW YOUR OPTIONS Talk to your health care provider about ways to manage your pain that don?t involve prescription opioids. Some of these options may actually work better and have fewer risks and side effects. Options may include: ? Pain relievers such as acetaminophen, ibuprofen, and naproxen ? Some medication that are also used for depression or seizures ? Physical therapy and exercise ? Cognitive behavioral therapy, a psychological, goal-directed approach, in which patients learn how to modify physical, behavioral, and emotional triggers of pain and stress. IF YOU ARE PRESCRIBED OPIOIDS FOR PAIN: ? Never take opioids in greater amounts or more often than prescribed. ? Follow up with your primary health care provider. o Work together to create a plan on how to manage your pain. o Talk about ways to help manage your pain that don?t involve prescription opioids. o Talk about any and all concerns and side effects. ? Help prevent misuse and abuse o Never sell or share prescription opioids. o Never use another person?s prescription opioids. ? Store prescription opioids in a secure place and out of reach of others (this may include visitors, children, friends, and family). ? Safely dispose of unused prescription opioids: Find your community drug take-back program or your pharmacy mail-back program, or flush them down the toilet, following guidance from the Food and Drug Administration (www.fda.gov/Drugs/ResourcesForYou). ? Visit www.cdc.gov/drugoverdose to learn about the risks of opioids abuse and overdose. ? If you believe you may be struggling with addiction, tell your health healthcare prof and ask for guidance or call [facility]?S National Helpline at 2-607-898-HAEM. d Source: US Department of Health and Human Services/Center for Disease Control & Prevention [facility] (more content not included)... Normal [facility] HEMATOLOGYOrdered By: SYSTEM SYSTEM on 03-22-2023 Basophils/100 WBC (Bld) 0.4 % Normal 0.0 - 2.0 % [facility]eAutoSS Basophils/Leukocytes Auto (B ld) [Pure # fraction] 0.0 E9/L Normal 0.0 - 0.2 E9/L [facility] Eosinophils/100 WBC (Bld) 1.3 % Normal 0.0 - 8.0 % [facility] Eosinophils/Leukocytes Auto (Bld) [Pure # fraction] 0.1 E9/L Normal 0.0 - 0.5 E9/L [facility]eAutoS S Lymphocytes/100 WBC (Bld) 14.6 % Normal 14.0 - 50. 0 % [facility] Lymphocytes/Leukocytes Auto (Bld) [Pure # fraction] 1.5 E9/L Normal 1.0 - 4.0 E9/L [facility]S S Monocytes/100 WBC (Bld) 7.9 % Normal 4.0 - 14.0 % [facility]AutoSS Monocytes/Leukocytes Auto (B ld) [Pure # fraction] 0.8 E9/L Normal 0.2 - 1.0 E9/L [facility] Neutrophils/100 WBC (Bld) 75.8 % High 36.0 - 75. 0 % [facility] Neutrophils/Leukocytes Auto (Bld) [Pure # fraction] 7.7 E9/L High 2.0 - 7.5 E9/L [facility]S S HEMATOLOGYOrdered By: Greg Rincon on 03-22-2023 Erythrocyte distribution wid th (RBC) [Ratio] 15.4 % High 10.9 - 14.2 % [facility] Hematocrit (Bld) [Volume fraction] 30.1 % Low 37.7 - 49.0 % [facility] Hemoglobin (Bld) [Mass/Vol] 10.3 g/dL Low 13.5 - 1 7.5 gm/dL [facility] MCH (RBC) [Entitic mass] 34.1 pg High 27.0 - 34.0 pg [facility] MCHC (RBC) [Mass/Vol] 34.2 g/dL Normal 31.4 - 36.0 gm /dL [facility] MCV (RBC) [Entitic vol] 99.4 fL Normal 80.0 - 100.0 fL [facility] Platelet mean volume (Bld) [Entitic vol] 8.6 fL Normal 6.4 - 10.8 fL [facility] Platelets (Bld) [#/Vol] 87.0 E9/L Low 150.0 - 500. 0 E9/L [facility] RBC (Bld) [#/Vol] 3.0 E12/L Low 4.3 - 5.9 E12/L [facility] WBC corrected for nucl RBC A uto (Bld) [#/Vol] 10.1 E9/L Normal 4.0 - 11.0 E9/L [facility] Lactic Acidon 03-22-2023 Lactate [Mass/Vol] 2.0 mmol/L Normal 0.5-2.2 [facility] Comment on above: Performed By: #### 2 [id number], [id number], [id number], 8096781, 5859152, 8537430, [id number] ####[facility] [address] [place] [address] PT & PTTon 03-22-2023 aPTT Coag (PPP) [Time] 42.0 second(s) High 25.1-36.5 [facility] Comment on above: Result Comment: Para meter 15 days - 4 weeks 1 - 5 months 6 - 11 months 1 - 5 years 6 - 10 years 11 - 17 years PTT Mean: 35.4 (27.6-45.6) Mean: 33.5 (24.8-40.7) Mean: 32.4 (25.1-40.7) Mean: 31.6 (24.0-39.2) Mean: 31.6 (26.9-38.7) Mean: 31.0 (24.6-38.4) Pediatric Reference ranges were obtained from a study by Julito Najera et al. prepared from 1437 samples obtained at 7 different centers using the same coagulation reagent and instrumentation as [facility]. Currently there are no coagulation studies available worldwide for children to 14 days, and no normal ranges. Heparin therapeutic range (represented by Anti-Factor Xa activity of 0.2 - 0.4 U/mL) corresponds to PTT of 56.6 - 109.0 sec. Performed By: #### 2 [id number], 4597761, [id number], 4284136, 2443212, 3513975, [id number] #### [facility] [address] [place] [address] INR Coag (PPP) [Relative time] 2.6 {INR} Invalid Interpretation Code [facility] Comment on above: Result Comment: INR results are specifically intended to assess patients stabilized on long-term Anticoagulation therapy suggested INR?s ?Less Intensive Anticoagulation? 2.0 ? 3.0 Conventional Range 3.0 ? 4.5 Performed By: #### 2 148584, 9345370, 15494827, 2202930, 0192277, 2754901, [id number] #### [facility] [address] [place] [address] PT Coag (PPP) [Time] 30.4 second(s) High 9.4-12.5 [facility] Comment on above: Result Comment: 15 d ays - 4 weeks 1 - 5 months 6 -11 months 1- 5 years 6-10 years 11 -17 years Mean: 11.2 (9.5-12.6) Mean: 11.0 (9.7-12.8) Mean: 11.0 (9.8-13.0) Mean: 11.3 (9.9-13.4) Mean: 11.7 (10.0-14.6) Mean: 11.8 (10.0 - 14.1) Pediatric Reference ranges were obtained from a study by vaishali Nobles al. prepared from 1437 samples obtained at 7 different centers using the same coagulation reagent and instrumentation as [facility]. Currently there are no coagulation studies available worldwide for children to 14 days, and no normal ranges. Performed By: #### 2 779900, 4625851, 83788374, 3803321, 3842329, 1712887, [id number] #### [facility] [address] [place] [address] Troponinon 03-22-2023 Troponin I.cardiac [Mass/Vol] 10.30 pg/mL Low 15.90 -38.40 [facility] Comment on above: Result Comment: The 95% CI (Confidence Interval) PPV (Positive Predictive Value) for myocardial infarction in females is 38 pg/mL, in males 51 pg/mL. The results should be used in conjunction with clinical conditions of myocardial infarction. (Access High Sensitivity Troponin I Instructions For Use, Sunny Latrice, April 2018) Performed By: #### 2 856041, 5343450, 11033267, 8937440, 4569532, 5905664, [id number] ####[facility] [address] [place] [address] eGFRon 03-22-2023 GFR/1.73 sq M.predicted devora g non-blacks MDRD (S/P/Bld) [Vol rate/Area] 127 mL/min/1.73 m2 Normal >=59 [facility] Comment on above: Order Comment: Order added by Discern Expert. Result Comment: Iron Bender antonio kidney disease could be indicated at eGFR's of less than 60 mL/min/1.73m2. Kidney failure is indicated at less than 15 mL/min/1.73m2. Performed By: #### 2 336583, 1083078, 53702286, 1904452, 0583662, 6616581, 41947013 ####[facility] [address] [place] [address] Consent for Procedure/Surger yon 03-18-2023 Consent for Procedure/Surgery [id number]#1.00CD:127 Normal [facility] Consent for Treatmenton 03-07 Consent for Treatment [id number]#1.00CD:127 Normal [facility] Multi-Wound Charton 03-16-20 Multi-Wound Chart [id number]#1.00CD:127 Normal [facility] Nursing Assessment - Woundon 03-16-2023 Nursing Assessment - Wound [id number]#1.00CD:127 [facility] Nursing Note - Woundon 03-16 Nursing Note - Wound [id number]#1.00CD:127 Normal [facility] Physician Orderon 03-16-2023 Physician Order [id number]#1.00CD:127 Normal [facility] Procedure - Woundon 03-16-20 Procedure - Wound [id number]#1.00CD:127 [facility] Consent for Procedure/Surger yon 03-06-2023 Consent for Procedure/Surgery [id number]#1.00CD:127 Normal [facility] Consent to Photographon 02-07 Consent to Photograph [id number]#1.00CD:127 [facility] Correspondence - Woundon Correspondence - Wound [id number]#1.00CD:127 [facility] Correspondence - Wound [id number]#1.00CD:127 [facility] Nursing Assessment - Woundon 03-06-2023 Nursing Assessment - Wound [id number]#1.00CD:127 [facility] Telephone Encounteron 2022 Price Checker Authentication Interface Message Text A prior authorization has been started for Lidocaine 5% patch PA status can be found under the prescription order in the Medication Tab. History or status of the PA can also be found in Chart Review under Referral tab. Normal [facility] Consent for Treatmenton 02-06 Consent for Treatment [id number]#1.00CD:127 [facility] Multi-Wound Charton 03-05-20 Multi-Wound Chart [id number]#1.00CD:127 [facility] Nursing Assessment - Woundon 03-05-2023 Nursing Assessment - Wound [id number]#1.00CD:127 [facility] Nursing Note - Woundon 03-05 Nursing Note - Wound [id number]#1.00CD:127 [facility] Physician Orderon 03-05-2023 Physician Order [id number]#1.00CD:127 [facility] Procedure - Woundon 03-05-20 Procedure - Wound [id number]#1.00CD:127 Normal [facility] Progress Note - Woundon 06-2 Progress Note - Wound [id number]#1.00CD:127 Normal [facility] Progress Noteson 02-27-2023 Price Checker Authentication Interface Message Text This encounter was opened in error. Patient was a No-Show. Please disregard. Normal [facility] Telephone Encounteron 2022 Price Checker Authentication Interface Message Text Pt had video visit scheduled. Link sent to him, but he never checked in. [facility] Aut[facility] Interface Message Text Called the patient Reminded him of his video visit this ThursdayMarch 03 with Lindsey Mahmood Pt concerned about his leg, he will send a picture to My Chart To his provider Concerned about his infection Notified Lindsey Mahmood Normal [facility] Price Checker Authentication Interface Message Text What is the need: call back Situation: Pt states that the doctors office called him stating that they were running behind but he never got a phone call. Please advise Background: Please contact and advise Assessment: Pt contact info is Phone numbers Recommendation: n/a Thank you [facility] Telephone Encounteron 2022 Price Checker Authentication Interface Message Text NB ~~thank you ~~K [facility] Price Checker Authentication Interface Message Text Called the patient Leg is not getting worse Getting a little better Concerned he is on the wrong antibiotic Scheduled for a video visit with Dr Winter partner Lindsey Mahmood for tomorrow @ 1140am [facility] Price Checker Authentication Interface Message Text PLEASE SEE MY CHART ENCOUTNER CLOSING THIS ENCOUTNER [facility] Price Checker Authentication Interface Message Text We should probably call and advise urgent care if we can't get him in. Maybe try to schedule with someone next week? [facility] Telephone Encounteron 2022 Price Checker Authentication Interface Message Text Patient was identified by name and date of . EMILY COTO, RN Called patient to triage in [facility] messagehe states he is taking water pills and is on clindamycin from the ER. They diagnosed him with cellulitis. He also had US that showed no blood clots. He has been taking the antibiotic for a week, he does not feel like the cellulitis has gotten worse, but also is not improving. 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 He said that when he is home a night he and puts his feet up the swelling goes down, so when he wakes up it is better, but progressive gets worse throughout the day. Patient states when he had the same thing in 08/28 he was prescribed Keflex, which worked. Patient is requesting a different antibiotic and possibly something for pain for a couple of days. RN informed patient that he should be seen by a provider. If you would like patient to be seen next day can he be overbooked? I do not see any appointments until late next week. [facility] message: Will Anderson to Theo Burks MD 02/25/23 9:43 AM Hello I started getting severe pain and swelling in my right leg last week. Went to the ER did ultrasound for blood clot and found nothing. They put me on pain killers and antibiotics. Well it's been a week and nothing has changed. Was I not treated right? I can barely walk. Help please. Theo Burks MD to [facility] 02/25/23 2:30 PM Please call patient and triage. If pain is severe and cannot walk recommend follow up in ED. If some improvement, please have him come in for same day or next day appointment. Normal [facility] Consent for Treatmenton 02-05 Consent for Treatment [id number]#1.00CD:127 Normal [facility] Discharge Instructionson Discharge Instructions [id number]#1.00CD:127 Normal [facility] ED Clinical Summaryon 2022 ED Clinical Summary (Inserted Image. Michelle ble to display) [place] [id number] ED Clinical Summary Person Information Name: RAMO, WILL J [place] Age: 37 Years : 1985 Sex: Male Language: Greenlandic PCP: THEO BURKS Marital Status: Single Visit Id: Visit Reason: Nausea; Leg pain-swelling; RIGHT LEG PAIN Speciality: Acuity: 3 Enc Type: Emergency Med Service: Emergency Arrival: 02/18/2023 07:40:40 Discharge: 02/18/2023 09:31:33 LOS: 000 01:51 Checkin: 02/18/2023 07:40:40 Checkout: 02/18/2023 09:31:33 Dispo Type: Home (Routine DC) EVENTS: Event Name Event Status Request Date/Time Start Date/Time Complete Date/Time Arrive Complete 02/18/2023 07:40:40 02/18/2023 07:40:40 02/18/2023 07:40:40 Document Home Meds Request 02/18/2023 07:40:40 Triage Complete 02/18/2023 07:40:40 02/18/2023 07:51:58 02/18/2023 07:51:58 Bed Assign Complete 02/18/2023 07:43:25 02/18/2023 07:43:25 02/18/2023 07:43:25 Dr Exam Complete 02/18/2023 07:43:25 02/18/2023 08:00:23 02/18/2023 08:00:23 RN Exam Complete 02/18/2023 07:43:25 02/18/2023 07:59:06 02/18/2023 07:59:06 Registration Complete 02/18/2023 07:54:48 02/18/2023 07:54:48 02/18/2023 07:54:48 Reg Complete Request 02/18/2023 07:54:48 Registration Start 02/18/2023 08:00:23 02/18/2023 08:41:17 Dr Exam Complete 02/18/2023 08:05:21 02/18/2023 08:05:21 02/18/2023 08:05:21 Dr Exam Complete 02/18/2023 08:08:02 02/18/2023 08:08:02 02/18/2023 08:08:02 Meds Admin Complete 02/18/2023 08:22:59 02/18/2023 09:01:34 US Complete 02/18/2023 08:22:59 02/18/2023 08:29:26 02/18/2023 09:01:05 Discharge Complete 02/18/2023 09:08:16 02/18/2023 09:31:38 02/18/2023 09:31:38 Transfer Complete 02/18/2023 09:31:38 02/18/2023 09:31:38 02/18/2023 09:31:38 ADDRESS: [address] [place] [id number] PHYS DOC NOTES: MEDICAL INFORMATION: Prescriptions Given: New Medications [id number] [address] [place], [place] [id number], [phone] oxycodone (oxyCODONE 5 mg Cap) 1 Capsules By Mouth every 6 hours as needed for pain for 3 Days. Refills: 0. Medications to Continue Taking That Have Changed [id number], [address] [place], [place] [id number], [phone] START: clindamycin (clindamycin 300 mg oral cap) 1 Capsules By Mouth every 6 hours for 7 Days. Refills: 0. Other Medications START: clindamycin (clindamycin 150 mg Cap) 2 Capsules By Mouth 4 times a day. Refills: 0. PATIENT EDUCATION INFORMATION: Instructions: RICE Therapy for Routine Care of Injuries, Rwvz-dc-Pccg; Musculoskeletal Pain; Pain Without a Known Cause; Cellulitis, Adult, Chhg-yb-Whaj Follow up: With: Address: When: THEO BURKS In 3 days 02/21/2023 Comments: Follow-up with your primary care provider in 3 to 5 days. If symptoms worsen, do not improve, or new symptoms arise please report back to emergency department for further evaluation. DIAGNOSIS: Cellulitis of right leg; Right leg pain Normal [facility] ED Note-Physicianon 02-19-20 23 ED Note-Physician Basic Information Time Seen: Omid PARKER, Xander John 02/18/2023 08:05 Chief Complaint pt to ER with c/o whole right leg pain and increased swelling starting this morning. hx of retaining fluid in lower body d/t liver issues pt has been using lidocaine patches with some relief. History of Present Illness A 37-year-old male reports emergency department with a chief complaint of increased right-sided leg pain, as well as swelling. He reports that started last night as of this morning. He states he does have a history of retaining some fluid in his lower body, and has had issues like this before. States he does have liver issues, but is on medications for this. States that the pain shoots from his right side of his groin all the way down to his right leg with the pain being worse in his calf. He reports he has been using lidocaine patches with some relief, but still very painful. He thinks that his leg may be infected. Reports he gets about on his legs that Burst open and then may be infected, which he believes. Denies any fevers or chills. Denies any other symptoms associated with this. Denies any back pain with this. Denies any bowel or bladder defects. Review of Systems A 10 point review of systems is negative except as noted above. Medical and Surgical History: Reviewed and noted Social history: Lives at home Family History: Reviewed. Tobacco: User Physical Exam Vitals & Measurements T: 37.2 ?C(Oral) HR: 95(Peripheral) RR: 16 BP: 153/80 SpO2: 100% HT: 170 cm WT: 77 kg BMI: 26.64 General: The patient appears well and in no apparent distress. Patient is resting comfortably in chair. Afebrile Skin: Warm, dry, no pallor noted. There is mild erythema and edema located of the lower right extremity. Patient has tenderness to palpation throughout the right lower extremity. There are an area of an open wound, that appears to be possibly cellulitic, with tenderness to palpation. Mild warmth noted. Head: Normocephalic, atraumatic Neck: No JVD Eye: PERRLA, EOMI ENT: Moist mucus membranes Cardiovascular: Regular rate normal peripheral perfusion. Pedal pulses +2 bilaterally Respiratory: No respiratory distress no accessory muscle use no obvious audible wheezing Chest Wall: no deformity Musculoskeletal: normal ROM, no deformity. Patient able to move right lower extremity, but with pain. No lower back pain on palpation. GI: No obvious distention Neurological: A&O moves all extremities equal strength and symmetry. Full sensations Psychiatric: Cooperative and appropriate Medical Decision Making MEDICAL DECISION MAKING Number and Complexity of Problems Differential Diagnosis: [] [facility] Data External documents reviewed: [] My EKG interpretation: [] My CT interpretation: [] My X-ray interpretation: [] My Ultrasound interpretation: Reviewed Decision rules/scores evaluated: [] Discussed with: [] Treatment and Disposition ED Course: 37-year-old male reports emergency department with chief complaint of right-sided leg pain. Reports that he does have a history of this, but worsened last night. Reports increased swelling as well. On physical exam, there is some erythema of the lower right extremity. The right leg is neurovascularly intact. He does have tenderness to palpation to very light touch. States he is not any blood thinners. On physical exam, he does have positive right-sided calf tenderness. There is also appears to be open wounds are slightly warm to palpation. Due to patient's pain that he is in, he was given oxycodone here in the emergency department. He was then had an ultrasound performed. Ultrasound was negative for any DVT. Patient reported that the oxycodone did start to help with the pain. Due to the patient's leg erythema, pain, as well as his open leg sores that the patient has been experiencing, concern for possible cellulitis. Due to this, patient was started on clindamycin due to amoxicillin allergy. Reports he has had clindamycin previously, and it has worked for him. Patient was given oxycodone to help with pain. Discussed return precautions. Follow-up with your primary care provider in 3 to 5 days. If symptoms worsen, do not improve, or new symptoms arise please report back to emergency department for further evaluation. The patient was understanding and agreeable to plan moving forward. Shared decision making: [] Code status: [] Assessment/Plan Cellulitis of right leg (L03.115: Cellulitis of right lower limb) Right leg pain (M79.604: Pain in right leg) Orders: clindamycin, 300 mg = 1 cap(s), Oral, q6hr, X 7 day(s), # 28 cap(s), Refills(s) 0, [facility]: [id number], 170, cm, 02/18/23 7:51:00 EDT, Height/Length Dosing, 77, kg, 02/18/23 7:51:00 EDT, Weight Dosing ibuprofen, 800 mg = 1 tab(s), Tab, Oral, Once, Stop date 02/18/23 8:22:00 EDT, STAT, Start date 02/18/23 8:22:00 EDT, 02/18/23 8:22:00 EDT oxycodone, 5 mg = 1 tab(s), Tab, Oral, Once, Stop date 02/18/23 8:22:00 E (more content not included)... Normal [facility] Comment on above: Result Comment: Elec tronically Signed By: Xander Anne PA-C\.br\Date and Time Signed: 02/18/23 09:37 EDT\.br\Electronically Co-Signed By: Brent Sanches DO\.br\Date and Time Co-Signed: 02/18/23 12:53 EDT ED Patient Education Noteon 02-18-2023 ED Patient Education Note Infectious Disease Cellulitis, Adult Cellulitis is a skin infection. The infected area is often warm, red, swollen, and sore. It occurs most often in the arms and lower legs. It is very important to get treated for this condition. What are the causes? This condition is caused by bacteria. The bacteria enter through a break in the skin, such as a cut, burn, insect bite, open sore, or crack. What increases the risk? This condition is more likely to occur in people who: ? Have a weak body defense system (immune system). ? Have open cuts, amezquita, bites, or scrapes on the skin. ? Are older than 60 years of age. ? Have a blood sugar problem (diabetes). ? Have a long-lasting (chronic) liver disease (cirrhosis) or kidney disease. ? Are very overweight (obese). ? Have a skin problem, such as: ? Itchy rash (eczema). ? Slow movement of blood in the veins (venous stasis). ? Fluid buildup below the skin (edema). ? Have been treated with high-energy rays (radiation). ? Use IV drugs. What are the signs or symptoms? Symptoms of this condition include: ? Skin that is: ? Red. ? Streaking. ? Spotting. ? Swollen. ? Sore or painful when you touch it. ? Warm. ? A fever. ? Chills. ? Blisters. How is this diagnosed? This condition is diagnosed based on: ? Medical history. ? Physical exam. ? Blood tests. ? Imaging tests. How is this treated? Treatment for this condition may include: ? Medicines to treat infections or allergies. ? Home care, such as: ? Rest. ? Placing cold or warm cloths (compresses) on the skin. ? Hospital care, if the condition is very bad. Follow these instructions at home: Medicines ? Take ivpq-soe-vroalqs and prescription medicines only as told by your doctor. ? If you were prescribed an antibiotic medicine, take it as told by your doctor. Do not stop taking it even if you start to feel better. General instructions ? Drink enough fluid to keep your pee (urine) pale yellow. ? Do not touch or rub the infected area. ? Raise (elevate) the infected area above the level of your heart while you are sitting or lying down. ? Place cold or warm cloths on the area as told by your doctor. ? Keep all follow-up visits as told by your doctor. This is important. Contact a doctor if: ? You have a fever. ? You do not start to get better after 1?2 days of treatment. ? Your bone or joint under the infected area starts to hurt after the skin has healed. ? Your infection comes back. This can happen in the same area or another area. ? You have a swollen bump in the area. ? You have new symptoms. ? You feel ill and have muscle aches and pains. Get help right away if: ? Your symptoms get worse. ? You feel very sleepy. ? You throw up (vomit) or have watery poop (diarrhea) for a long time. ? You see red streaks coming from the area. ? Your red area gets larger. ? Your red area turns dark in color. These symptoms may represent a serious problem that is an emergency. Do not wait to see if the symptoms will go away. Get medical help right away. Call your local emergency services (911 in the [place] Do not drive yourself to the hospital. Summary ? Cellulitis is a skin infection. The area is often warm, red, swollen, and sore. ? This condition is treated with medicines, rest, and cold and warm cloths. ? Take all medicines only as told by your doctor. ? Tell your doctor if symptoms do not start to get better after 1?2 days of treatment. This information is not intended to replace advice given to you by your health care provider. Make sure you discuss any questions you have with your health care provider. Document Revised: 06/05/2022 Document Reviewed: 06/05/2022 [employer] Patient Education ? 2022 [employer]. Orthopedics RICE Therapy for Routine Care of Injuries Many injuries can be cared for with rest, ice, compression, and elevation (RICE therapy). This includes: ? Resting the injured body part. ? Putting ice on the injury. ? Putting pressure (compression) on the injury. ? Raising the injured part (elevation). Using RICE therapy can help to lessen pain and swelling. Supplies needed: ? Ice. ? Plastic bag. ? Towel. ? Elastic bandage. ? Pillow or pillows to raise your injured body part. How to care for your injury with RICE therapy Rest Try to rest the injured part of your body. You can go back to your normal activities when your doctor says it is okay to do them and when you can do them without pain. If you rest the injury too much, it may not heal as well. Some injuries heal better with early movement instead of resting for too long. Ask your doctor if you should do exercises to help your injury get better. Ice ? If told, put ice on the injured area. To do this: ? Put ice in a plastic bag. ? Place a towel between your skin and the bag. ? (more content not included)... Normal [facility] ED Patient Summaryon 023 ED Patient Summary [place] [id number] Patient Discharge Instructions Person Information Name: WILL ANDERSON Age: 37 Years Arrival Date: 02/18/2023 07:40:40 Discharge Diagnosis: Cellulitis of right leg; Right leg pain Primary Care Physician: THEO BURKS Provider Information Primary Provider: Brent Sanches DO [employer] Operator:None The exam and treatment you received in the Emergency Department were for an urgent problem and are not intended as complete care. It is important that you follow up with a doctor, nurse practitioner, or physician?s ophthalmic medical assistant for ongoing care. If your symptoms become worse or you do not improve as expected and you are unable to reach your usual health care provider, you should return to the Emergency Department. We are available 24 hours a day. WILL ANDERSON has been given the following list of patient education materials, prescriptions and follow-up instructions: Follow-up Instructions: With: Address: When: THEO BURKS In 3 days 02/21/2023 Comments: Follow-up with your primary care provider in 3 to 5 days. If symptoms worsen, do not improve, or new symptoms arise please report back to emergency department for further evaluation. In the event that this physician does not participate in your insurance network, please consult with your insurance company to find a nearby participating provider. Patient Education Materials: RICE Therapy for Routine Care of Injuries, Lvbe-dv-Ngzj; Musculoskeletal Pain; Pain Without a Known Cause; Cellulitis, Adult, Lxxf-ao-Smru A MESSAGE TO ALL PATIENTS REGARDING OPIOIDS PRESCRIPTION OPIOIDS: WHAT YOU NEED TO KNOW Prescription opioids can be used to help relieve ypzgfqkx-br-qyhwmc pain and are often prescribed following a surgery or injury, or for certain health conditions. These medications can be an important part of the treatment but also come with serious risks. It is important to work with your healthcare provider to make sure you are getting the safest, most effective care. WHAT ARE THE RISKS AND SIDE EFFECTS OF OPIOID USE? Prescription opioids carry serious risks of addiction and overdose, especially with prolonged use. An opioid overdose, often marked by slowed breathing, can cause sudden . The use of prescription opioids can have a number of side effects as well, even when taken as directed: ? Tolerance?meaning you might need to take more of the medication for the same pain relief ? Physical dependence?meaning you have symptoms of withdrawal when a medication is stopped ? Increased sensitivity to pain ? Constipation ? Nausea, vomiting, and dry mouth ? Sleepiness and dizziness ? Confusion ? Depression ? Low levels of testosterone that can result in lower sex drive, energy, and strength ? Itching and sweating RISKS ARE GREATER WITH: ? History of drug misuse, substance use disorder, or overdose ? Mental health conditions (such as depression or anxiety) ? Sleep apnea ? Older age (65 years and older) ? Avoid alcohol while taking prescription opioids. Also, unless specifically advised by your health care provider, medications to avoid include: ? Benzodiazepines (such as Xanax or Valium) ? Muscle relaxants (such as Soma or Flexeril) ? Hypnotics (such as Ambien or Lunesta) ? Other prescription opioids KNOW YOUR OPTIONS Talk to your health care provider about ways to manage your pain that don?t involve prescription opioids. Some of these options may actually work better and have fewer risks and side effects. Options may include: ? Pain relievers such as acetaminophen, ibuprofen, and naproxen ? Some medication that are also used for depression or seizures ? Physical therapy and exercise ? Cognitive behavioral therapy, a psychological, goal-directed approach, in which patients learn how to modify physical, behavioral, and emotional triggers of pain and stress. IF YOU ARE PRESCRIBED OPIOIDS FOR PAIN: ? Never take opioids in greater amounts or more often than prescribed. ? Follow up with your primary health care provider. o Work together to create a plan on how to manage your pain. o Talk about ways to help manage your pain that don?t involve prescription opioids. o Talk about any and all concerns and side effects. ? Help prevent misuse and abuse o Never sell or share prescription opioids. o Never use another person?s prescription opioids. ? Store prescription opioids in a secure place and out of reach of others (this may include visitors, children, friends, and family). ? Safely dispose of unused prescription opioids: Find your community drug take-back program or your pharmacy mail-back program, or flush them down the toilet, following guidance from the Food and Drug Administration (www.fda.gov/Drugs/ResourcesForYou). ? Visit www.cdc.gov/drugoverdose t (more content not included)... Normal [facility] LE Venous Duplex Righton 02-18-2023 LE Venous Duplex Right Exam Date/Time: 02/18/2023 09:01 EDT Reason for Exam: Swelling Report IMPRESSION: NO EVIDENCE OF VENOUS THROMBOSIS INVOLVING VISUALIZED DEEP VEINS OF THE RIGHT LEG. CLINICAL HISTORY: Swelling. Right leg pain and swelling. COMMENT: On the right, the external iliac vein, greater saphenous vein, common femoral vein, deep femoral vein, femoral vein, and popliteal vein demonstrate spontaneous phasic venous flow, with augmentation, non-pulsatility, and compressibility every 2 cm. The right posterior tibial vein of the deep venous system compresses. The right peroneal deep calf vein is not visualized. The contralateral left common femoral vein demonstrates spontaneous phasic venous flow. Ordering Provider: Xander Anne FINAL REPORT Dictated: 02/18/2023 9:[address] Sanchez M.D. Signed (Electronic Signature): 02/18/2023 9:16 am Signed by: Rd Sanchez M.D. Transcribed by: JUNIOR Technologist: TANIKA Razo [facility] Telephone Encounteron 2022 [employer] Authentication Interface Message Text Last written 10/27/22 Normal [facility] [employer] XA HEPATIC VENOGRAM W/ HEMOD YN (CHRISTIANO)on 01-21-2023 XA HEPATIC VENOGRAM W/ HEMODYN (CHRISTIANO) EXAMINATION: XA TRANSJUGULAR LIVER BIOPSY (CHRISTIANO), XA HEPATIC VENOGRAM W/ HEMODYN (CHRISTIANO) 01/20/2023 10:46 AM CLINICAL HISTORY: Rad Procedure required: = Transjugular liver biopsy with portal pressure measurements,Suspected liver fibrosis ASSOCIATED DIAGNOSIS: Alcoholic fatty liver Hyperbilirubinemia Alcoholic hepatitis, unspecified whether ascites present ORDERING PROVIDER: HALEY GARY TECHNOLOGISTS NOTE: Right atrium: 14, pre hepatic: 18, wedged hepatic: 32. Moderate sedation intraservice time [id number] FLUOROSCOPIST: ERICA ROCK TIME: 41.6 Minutes ATTENDING PHYSICIAN: Erica Rock RESIDENT/FELLOW PHYSICIAN: Brayan Babin INTRA-PROCEDURE MEDS: iohexol (OMNIPAQUE) 350 MG/ML injection 40 mL Route: Other SEDATION TIME: Start time: 08 Stop time: 1015 INFORMED CONSENT: Written informed consent was obtained. The procedure, risks, benefits, and alternatives were discussed. All questions were answered. TIMEOUT: Physician led timeout was conducted documenting correct patient, procedure, site, fire risk, antibiotics and allergies. COMPLICATIONS: None ESTIMATED BLOOD LOSS: Less than 10 mL TECHNIQUE: Patient was positioned supine on the angiography table and the right neck was prepped and draped in usual aseptic manner. Lidocaine was administered for local anesthesia. Antegrade puncture of the right internal jugular vein was performed with a 21-gauge needle under ultrasound guidance and the vein was cannulated with a microaccess catheter using modified Seldinger technique. A 0.035 inch Amplatz wire was then advanced into the inferior vena cava through the microaccess catheter under fluoroscopic guidance. A 10 [place]er curved tip renal vein sheath was then advanced over the wire into the right atrium. The obturator was removed and a 5 [place]er MPB catheter was used to select the right hepatic vein with the assistance of a Glidewire. The MPB catheter was exchanged for a Wilmer catheter and hepatic venous pressures measured. The catheter was inflated and hepatic venous wedge pressures measured. The catheter was then deflated and withdrawn into the right atrium; right atrial pressures were also measured. The right hepatic vein was again selected with a 5 [place]er MPB catheter which was then exchanged over an Amplatz wire for the 10 [place]er venous sheath. This was repeated several times for attempted transvenous liver biopsy through the right hepatic vein; however, the 10 [place]er sheath withdrew during attempted advancement of the biopsy catheter. The 10 [place]er venous sheath was then withdrawn into the intrahepatic IVC. The middle hepatic vein was selected with the same 5 [place]er catheter which was then exchanged over an Amplatz wire for the 10 [place]er venous sheath. The 10 [place]er transvenous biopsy catheter was then advanced into the middle hepatic venous sheath and deployed twice for liver biopsy. The transvenous biopsy catheter and a 10 [place]er venous sheath were removed. Satisfactory hemostasis was obtained with manual compression of the right neck. The patient tolerated the procedure well and was transferred from the angiography suite in stable condition. FINDINGS: Fluoroscopic image documents selection of the right hepatic vein. Frontal DSA demonstrates the middle hepatic vein. Ultrasound images show patency of the right internal jugular vein. Pressure measurements: Right atrium = 14 mmHg; right hepatic vein = 18 mmHg; hepatic venous wedge = 32 mmHg IMPRESSION: 1. Technically successful and uncomplicated transjugular liver biopsy. 2. Elevated right atrial pressures and increased portosystemic gradient. MACRO: None Normal [facility] XA TRANSJUGULAR LIVER BIOPSY (CHRISTIANO)on 01-21-2023 XA TRANSJUGULAR LIVER BIOPSY (CHRISTIANO) EXAMINATION: XA TRANSJUGULAR LIVER BIOPSY (CHRISTIANO), XA HEPATIC VENOGRAM W/ HEMODYN (CHRISTIANO) 01/20/2023 10:46 AM CLINICAL HISTORY: Rad Procedure required: = Transjugular liver biopsy with portal pressure measurements,Suspected liver fibrosis ASSOCIATED DIAGNOSIS: Alcoholic fatty liver Hyperbilirubinemia Alcoholic hepatitis, unspecified whether ascites present ORDERING PROVIDER: HALEY GARY TECHNOLOGISTS NOTE: Right atrium: 14, pre hepatic: 18, wedged hepatic: 32. Moderate sedation intraservice time [id number] FLUOROSCOPIST: ERICA ROCK TIME: 41.6 Minutes ATTENDING PHYSICIAN: Erica Rock RESIDENT/FELLOW PHYSICIAN: Brayan Babin INTRA-PROCEDURE MEDS: iohexol (OMNIPAQUE) 350 MG/ML injection 40 mL Route: Other SEDATION TIME: Start time: 827 Stop time: 1014 INFORMED CONSENT: Written informed consent was obtained. The procedure, risks, benefits, and alternatives were discussed. All questions were answered. TIMEOUT: Physician led timeout was conducted documenting correct patient, procedure, site, fire risk, antibiotics and allergies. COMPLICATIONS: None ESTIMATED BLOOD LOSS: Less than 10 mL TECHNIQUE: Patient was positioned supine on the angiography table and the right neck was prepped and draped in usual aseptic manner. Lidocaine was administered for local anesthesia. Antegrade puncture of the right internal jugular vein was performed with a 21-gauge needle under ultrasound guidance and the vein was cannulated with a microaccess catheter using modified Seldinger technique. A 0.035 inch Amplatz wire was then advanced into the inferior vena cava through the microaccess catheter under fluoroscopic guidance. A 10 [place]er curved tip renal vein sheath was then advanced over the wire into the right atrium. The obturator was removed and a 5 [place]er MPB catheter was used to select the right hepatic vein with the assistance of a Glidewire. The MPB catheter was exchanged for a Wilmer catheter and hepatic venous pressures measured. The catheter was inflated and hepatic venous wedge pressures measured. The catheter was then deflated and withdrawn into the right atrium; right atrial pressures were also measured. The right hepatic vein was again selected with a 5 [place]er MPB catheter which was then exchanged over an Amplatz wire for the 10 [place]er venous sheath. This was repeated several times for attempted transvenous liver biopsy through the right hepatic vein; however, the 10 [place]er sheath withdrew during attempted advancement of the biopsy catheter. The 10 [place]er venous sheath was then withdrawn into the intrahepatic IVC. The middle hepatic vein was selected with the same 5 [place]er catheter which was then exchanged over an Amplatz wire for the 10 [place]er venous sheath. The 10 [place]er transvenous biopsy catheter was then advanced into the middle hepatic venous sheath and deployed twice for liver biopsy. The transvenous biopsy catheter and a 10 [place]er venous sheath were removed. Satisfactory hemostasis was obtained with manual compression of the right neck. The patient tolerated the procedure well and was transferred from the angiography suite in stable condition. FINDINGS: Fluoroscopic image documents selection of the right hepatic vein. Frontal DSA demonstrates the middle hepatic vein. Ultrasound images show patency of the right internal jugular vein. Pressure measurements: Right atrium = 14 mmHg; right hepatic vein = 18 mmHg; hepatic venous wedge = 32 mmHg IMPRESSION: 1. Technically successful and uncomplicated transjugular liver biopsy. 2. Elevated right atrial pressures and increased portosystemic gradient. MACRO: None Normal [facility] PROTHROMBIN TIME AND INRon 0 01-20-2023 INR Coag (PPP) [Relative time] 2.49 {INR} High 0.90- 1.10 [facility] Comment on above: Performed By: #### H EMO DNA #### [facility] [address] [place] [address] [place], [place] PT Coag (PPP) [Time] 27.9 s High 9.7-12.9 [facility] Comment on above: Performed By: #### H EMO DNA #### [facility] [address] [place] [address] [place], [place] BASIC METABOLIC PANELon 05-0 Anion gap [Moles/Vol] 12 mmol/L Normal 10-20 The [facility] Comment on above: Performed By: #### C BC #### [facility] [address] [place] [address], Calcium [Mass/Vol] 8.3 mg/dL Low 8.4-10.4 [facility] Comment on above: Performed By: #### C BC #### [facility] [address] [place] [address], Chloride [Moles/Vol] 105 mmol/L Normal 97-111 [facility] Comment on above: Performed By: #### C BC #### [facility] [address] [place] [address], CO2 [Moles/Vol] 26 mmol/L Normal 21-30 The [facility] Comment on above: Performed By: #### C BC #### [facility] [address] [place] [address], Creatinine [Mass/Vol] 0.60 mg/dL Low 0.80-1.30 [facility] Comment on above: Performed By: #### C BC #### [facility] [address] [place] [address], ESTIMATED GFR (CKD-EPI) 127 mL/min/1.73sqm Normal >=60 [facility] Comment on above: Result Comment: 2020 CKD EPI Equation using Creatinine without Race Comment: Estimated glomerular filtration rate (eGFR) is calculated without a race coefficient. Values should be interpreted in the context of the patient's full clinical presentation. Reference: 1. Fran C, Akhil M, Lidnen SAGASTUME, et al.. A Unifying Approach for GFR Estimation: Recommendations of the NKF-ASN Task Force on Reassessing the Inclusion of Race in Diagnosing Kidney Disease. [place] Journal of Kidney Diseases 2021;79(2):268-88.e1. 2. N Engl J Med 2020 Vol. 385 Issue 19 Pages 4514-8081 Performed By: #### C BC #### [facility] [address] [place] [address], Glucose [Mass/Vol] 82 mg/dL Normal [facility] Comment on above: Performed By: #### C BC #### [facility] [address] [place] [address], Performed By: #### G ENTEST #### [facility] [address] [place] [address], Potassium [Moles/Vol] 3.5 mmol/L Normal 3.3-5.3 [facility] Comment on above: Performed By: #### C BC #### [facility] [address] [place] [address], Sodium [Moles/Vol] 139 mmol/L Normal 135-148 [facility] Comment on above: Performed By: #### C BC #### [facility] [address] [place] [address], Urea nitrogen [Mass/Vol] 4 mg/dL Low 8-22 [facility] Comment on above: Performed By: #### C #### [facility] [address] [place], [id number] Basic metabolic 2000 panelon 01-12-2023 Anion gap [Moles/Vol] 12 mmol/L 10 - 20 [facility] Calcium [Mass/Vol] 8.3 mg/dL Low 8.4 - 10.4 mg/dL [facility] Chloride [Moles/Vol] 105 mmol/L 97 - 111 mmol/L [facility] CO2 [Moles/Vol] 26 mmol/L 21 - 30 mmol/L [facility] Creatinine [Mass/Vol] 0.60 mg/dL Low 0.80 - 1.30 mg /dL [facility] GFR/1.73 sq M.predicted MDRD (S/P/Bld) [Vol rate/Area] 127 mL/min/{1.73_m2} - [facility] Comment on above: 2020 CKD EPI Equatio n using Creatinine without Race Comment: Estimated glomerular filtration rate (eGFR) is calculated without a race coefficient. Values should be interpreted in the context of the patient's full clinical presentation. Reference: 1. Fran C, Badeana M, Linden DC, et al.. A Unifying Approach for GFR Estimation: Recommendations of the NKF-ASN Task Force on Reassessing the Inclusion of Race in Diagnosing Kidney Disease. [place] Journal of Kidney Diseases 202;79(2):268-88.e1. 2. N Engl J Med 2020 Vol. 385 Issue 19 Pages 4962-8740 Glucose [Mass/Vol] 82 mg/dL 68 - 110 mg/dL [facility] Potassium [Moles/Vol] 3.5 mmol/L 3.3 - 5.3 mmol /L [facility] Sodium [Moles/Vol] 139 mmol/L 135 - 148 mmol/L [facility] Urea nitrogen [Mass/Vol] 4 mg/dL Low 8 - 22 mg/d L [facility] C-PEPTIDE, SERUMon 3 C peptide [Mass/Vol] 3.52 ng/mL 0.81 - 3.85 ng/ mL [facility] Interpretation and review of laboratory results [facility] CPEP 3.52 ng/mL Normal 0.81-3.85 [facility] Comment on above: Performed By: #### C BC #### [facility] [address] [place], [place], CBC panel Auto (Bld)on 01-12 Erythrocyte distribution wid th (RBC) [Ratio] 15.7 % High 11.5 - 14.5 % [facility] Hematocrit (Bld) [Volume fraction] 35.4 % Low 4 1.0 - 53.0 % [facility] Hemoglobin (Bld) [Mass/Vol] 12.1 g/dL Low 13.9 - 1 6.3 g/dL [facility] Interpretation and review of laboratory results Abnormal [facility] MCH (RBC) [Entitic mass] 36.7 pg High 26.0 - 34.0 pg [facility] MCHC (RBC) [Mass/Vol] 34.3 g/dL 32.0 - 35.9 g/ dL [facility] MCV (RBC) [Entitic vol] 107 fL High 80 - 100 fL [facility] Platelet mean volume (Bld) [ Entitic vol] 8.3 fL 7.5 - 11.2 fL [facility] Platelets (Bld) [#/Vol] 110 10*3/uL Low 150 - 400 K /uL [facility] RBC (Bld) [#/Vol] 3.31 10*6/uL Low [facility] WBC (Bld) [#/Vol] 6.6 10*3/uL 4.5 - 11.5 K/uL [facility] COMPLETE BLOOD COUNTon 01-12 Erythrocyte distribution wid th (RBC) [Ratio] 15.7 % High 11.5-14.5 The [facility] Comment on above: Performed By: #### C BC #### [facility] [address] [place], [place], Hematocrit (Bld) [Volume fraction] 35.4 % Low 4 1.0-53.0 The [facility] Comment on above: Performed By: #### C BC #### [facility] [address] [place], [place], Hemoglobin (Bld) [Mass/Vol] 12.1 g/dL Low 13.9-16. 3 [facility] Comment on above: Performed By: #### C BC #### S [facility] [address] [place], [place], MCH (RBC) [Entitic mass] 36.7 pg High 26.0-34.0 The [facility] Comment on above: Performed By: #### C BC #### [facility] [address] [place], [place], MCHC (RBC) [Mass/Vol] 34.3 g/dL Normal 32.0-35.9 The [facility] Comment on above: Performed By: #### C BC #### [facility] [address] [place] [address], MCV (RBC) [Entitic vol] 107 fL High 80-100 T [facility] Comment on above: Performed By: #### C BC #### [facility] [address] [place] [address], Platelet mean volume (Bld) [ Entitic vol] 8.3 fL Normal 7.5-11.2 The [facility] Comment on above: Performed By: #### C BC #### [facility] [address] [place] [address], Platelets (Bld) [#/Vol] 110 10*3/uL Low 150-400 The [facility] Comment on above: Performed By: #### C BC #### [facility] [address] [place] [address], RBC (Bld) [#/Vol] 3.31 10*6/uL Low 4.50-5.90 The [facility] Comment on above: Performed By: #### C BC #### [facility] [address] [place] [address], WBC (Bld) [#/Vol] 6.6 10*3/uL Normal 4.5-11.5 The [facility] Comment on above: Performed By: #### C BC #### [facility] [address] [place] [address], Diabetes tracking panelOrder ed By: Moi Christianson on 01-12-2023 Average glucose Estimated fr om glycated hemoglobin (Bld) [Mass/Vol] 82 mg/dL [facility] HbA1c (Bld) [Mass fraction] 4.5 % 4.0 - 5. 6 % [facility] HEMOGLOBIN A1Con 01-12-2023 HbA1c (Bld) [Mass fraction] 4.5 % Normal 4.0-5.6 The [facility] Comment on above: Performed By: #### G ENTEST #### S [facility] LAB[facility] [address] [place] [address], HEPATIC FUNCTION PANELon Albumin [Mass/Vol] 3.2 g/dL Low 3.4-5.1 The [facility] Comment on above: Performed By: #### G ENTEST #### S [facility] [address] [place] [address], ALK 336 IU/L High 40-200 The [facility] Comment on above: Performed By: #### G ENTEST #### [facility] [address] [place] [address], ALT [Catalytic activity/Vol] 43 U/L High 7-40 The [facility] Comment on above: Performed By: #### G ENTEST #### S [facility] [address] [place] [address], AST [Catalytic activity/Vol] 73 U/L High 7-40 The [facility] Comment on above: Performed By: #### G ENTEST #### [facility] [address] [place] [address], Bilirubin [Mass/Vol] 8.2 mg/dL High 0.1-1.5 The [facility] Comment on above: Performed By: #### G ENTEST #### S [facility] LAB[facility] [address] [place] [address], Bilirubin.direct [Mass/Vol] 2.28 mg/dL High 0.10-0.3 0 The [facility] Comment on above: Performed By: #### G ENTEST #### S [facility] [address] [place] [address], Protein [Mass/Vol] 7.9 g/dL Normal 6.2-8.3 The [facility] Comment on above: Performed By: #### G ENTEST #### [facility] [address] [place] [address], Albumin [Mass/Vol] 3.2 g/dL Low 3.4 - 5.1 g/dL [facility] ALP [Catalytic activity/Vol] 336 U/L High [facility] ALT [Catalytic activity/Vol] 43 U/L High [facility] AST [Catalytic activity/Vol] 73 U/L High [facility] Bilirubin [Mass/Vol] 8.2 mg/dL High 0.1 - 1.5 mg/dL [facility] Bilirubin.direct [Mass/Vol] 2.28 mg/dL High 0.10 - 0 .30 mg/dL [facility] Protein [Mass/Vol] 7.9 g/dL 6.2 - 8.3 g/dL [facility] INSULINon 01-12-2023 Insulin Free Qn 38.9 High [facility] Interpretation and review of laboratory results Abnormal [facility] INSUL 38.9 mIU/L High 2.0-25.0 The [facility] Comment on above: Performed By: #### C BC #### [facility] [address] [place] [address], No Panel Informationon 01-12 Interpretation and review of laboratory results Abnormal [facility] PROTHROMBIN TIME AND INRon 0 01-12-2023 INR Coag (PPP) [Relative time] 1.87 {INR} High 0.90- 1.10 The [facility] Comment on above: Performed By: #### G ENTEST #### [facility] [address] [place] [address], PT Coag (PPP) [Time] 21.0 s High 9.7-12.9 The [facility] Comment on above: Performed By: #### G ENTEST #### [facility] [address] [place] [address], INR Coag (PPP) [Relative time] 1.87 {INR} High 0.90 - 1.10 [facility] Interpretation and review of laboratory results Abnormal [facility] PT Coag (PPP) [Time] 21.0 s High [facility] Progress Noteson 01-12-2023 Price Checker Authentication Interface Message Text Labs drawn peripherally from right forearm. Normal The [facility] [employer] Price Checker Authentication Interface Message Text Hematology AND Oncology Clinic Note Reason for Consult: Hemolytic anemia Alcoholic cirrhosis Thrombocytopenia Long-term steroid use Referring Provider: Afua Umanzor MD Chief Complaint Patient presents with AIHA on MMF syncopal episodes due to hypoglycemia History of Present Illness Wlil Anderson is a 37 year old male with hx of excessive alcohol use with alcoholic liver cirrhosis, presented to ER in decompensated liver failure. 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 He was discharged home on 1 milligram/kilogram of prednisone which pt stopped prematurely. He was placed on MMF 1000mg BID. Pt non complaint due to side effect. Here for MDVS, complaint of leg swelling And labs. Initial consult visit HPI Per patient, had a hard time with steroid at home. Was unable to sleep and kept him agitated almost all times. He decided to stop prednisone after 7 days And has been doing much better since then. Has not had any alcohol since discharge. To color a his skin and eyes is slowly coming back to normal. Interval visit 01/13/2023 he currently feels well overall. Complaint with cellcept. Complains of periods of hypoglycemia events[place] syncopal episodes and confusion relieved by glucose tabs or eating. Breaks in a sweat and feels week during the episodes. Has not discussed this with his PCP. Happens when he has been fasting for > 8 hrs. No history of diabetes or medications. Denies CP, SOB, palpitations, dizziness or light-headedness. Denies having any changes in weight, appetite, or energy. No night sweats, fevers, chills, or new lumps. Eating and drinking well. Review of Systems Constitutional: Negative for chills, fever, malaise/fatigue and weight loss. HENT: Negative for congestion, hearing loss, sinus pain and tinnitus. Eyes: Negative for blurred vision and double vision. Jaundice Respiratory: Negative for cough, sputum production, shortness of breath and wheezing. Cardiovascular: Negative for chest pain, palpitations, orthopnea and leg swelling. Gastrointestinal: Negative for abdominal pain, blood in stool, constipation, diarrhea, heartburn, nausea and vomiting. Genitourinary: Negative for dysuria, frequency and urgency. Musculoskeletal: Negative for back pain, falls, joint pain and myalgias. Skin: Negative for rash. Neurological: Negative for dizziness, tingling, tremors, sensory change, focal weakness, seizures, weakness and headaches. Endo/Heme/Allergies: Does not bruise/bleed easily. Psychiatric/Behavioral: Negative for depression, substance abuse and suicidal ideas. The patient is not nervous/anxious and does not have insomnia. 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 SOCIAL HISTORY: Social History Socioeconomic History Marital status: Single Tobacco Use Smoking status: Former Types: Cigarettes Smokeless tobacco: Current Types: Chew CURRENT MEDICATIONS: Current Outpatient Medications Medication Sig Dispense Refill hydrOXYzine pamoate (Vistaril) 25 MG capsule Take 1 Capsule by mouth 3 times daily as needed for Itching. 90 Capsule 3 spironolactone (Aldactone) 50 MG tablet Take 1 Tablet by mouth daily. 90 Tablet 3 diclofenac (VOLTAREN) 1 % GEL topical gel Apply 4 g topically 4 times daily as needed for Pain (in leg joints). 1 Tube 2 lidocaine (LIDODERM) 5 % patch Place 1 Patch on the skin every 24 hours. 10 Patch 3 furosemide (LASIX) 20 MG tablet take 1 tablet by mouth once daily 90 Tablet 3 potassium chloride SA (K-DUR) 20 MEQ controlled release tablet Take 1 Tablet by mouth daily. 10 Tablet 0 sulfamethoxazole-trimethopri m 800-160 MG (Bactrim DS) 800-160 MG per tablet Take 1 Tablet by mouth every Thursday, , Thursday. 12 Tablet 3 lactulose 20 g/30 mL SOLN oral solution Take 30 mL by mouth 4 times daily as needed. Titrate 2-3 bowel movements/day 946 mL 3 famotidine (Pepcid) 20 MG tablet Take 1 Tablet by mouth 2 times daily. 60 Tablet 3 ondansetron (ZOFRAN-ODT) 4 MG disintegrating tablet Take 1 Tablet by mouth every 12 hours as needed for Nausea. Place 1 tablet under tongue as needed for nausea. 30 Tablet 0 mupirocin (BACTROBAN) 2 % ointment Apply topically 3 times daily. Apply thin layer to affected area. 30 g 0 vitamin B-1 (THIAMINE) 100 MG tablet Take 1 Tablet by mouth daily. 90 Tablet 3 Multiple Vitamin (Multi-Vitamins) tablet Take 1 Tablet by mouth daily. 90 Tablet 3 folic acid 1 MG tablet Take 1 Tablet by mouth daily. 90 Tablet 3 mycophenolate (CELLCEPT) 500 MG tablet Take 1 Tablet by mouth 2 times daily. 120 Tablet 3 esomeprazole (NEXIUM) 40 MG capsule Take 1 Capsule by mouth daily (30 angela (more content not included)... Normal The [employer] Price Checker Authentication Interface Message Text Patient was identified by name and date of . Gustabo Isaak Pittman Body Mass Index is 27.28. Body Surface Area is 1.91 square meters according to the formula of Eli and Eli. Patient at risk for falls:No Falls Risk protocol implemented: No Blood pressure 121/56, pulse 79, temperature 96.6 ???F (35.9 ???C), resp. rate 20, height 5' 7 (1.702 m), weight 174 lb 3.2 oz (79 kg), SpO2 100 %. Gustabo Isaak Pittman Normal The [email or web address] [facility] Price Checker Authentication Interface Message Text Patient was identified by name and date of . April Jewell Patient at risk for falls:No Falls Risk protocol implemented: No Normal The [employer] Price Checker Authentication Interface Message Text Attestation signed by Haley Gary MD at 01/12/2023 10:33 AM Attending addendum: Complex case with autoimmune hemolytic anemia and jaundice, thrombocytopenia, which could be due to hematological d/o or cirrhosis (given ETOH history). No ETOH since over 1 year ago. Once again we discussed liver biopsy to evaluate if cirrhotic, patient was agreeable before (didn't get it scheduled) and now. He now has it scheduled for next week. Transjugular biopsy given thrombocytopenia (?portal hypertension) and INR. We had a detailed discussion regarding the risks verses benefits from a liver biopsy and the potentially useful information that could be gained. I discussed the complications from a biopsy which include pain (30%), bleeding (0.5%), damage to other organs (less than 1 in 1000), and major complications including need for surgery (less than 1 in 1000). Viral hepatitis, hemochromatosis, and AIH testing have been negative. I saw and evaluated the patient. I personally obtained the critical portions of the history and physical exam. The case was discussed in detail with the fellow; including, but not limited to the chief complaint, HPI, past history, physical findings, labs and radiological findings. I agree with the fellow's medical decision making as documented in the fellow's note. The patient was counseled on the possible differential diagnoses and testing needed to arrive at a diagnosis or a treatment plan. Haley Gary MD Division of Gastroenterology AND Hepatology [facility] Department of Gastroenterology and Hepatology Hepatology Clinic Follow Up Visit GI Attending Physician: Dr. Haley Gary MD PCP: Theo Burks MD Last GI Visit: 08/25/22 Background History Will Anderson is a 36 year old male with history notable for EtOH cirrhosis (decompensated by ascites), autoimmune hemolytic anemia (on cellcept) who was referred to hepatology clinic for EtOH cirrhosis with worsening hyperbilirubinemia despite quitting EtOH x 6 months (last use 01/2022). Course also c/b LE edema and ascites with recent ED visit for RLE cellulitis for which he completed 7 d of PO Keflex. Interval History He still notes swelling in his legs that improve with water pills and elevation. He feels he has to take the water pills regularly to keep the water off his legs. He has some itching in his legs which hydroxyzine helps with. He continues to avoid alcohol (he stopped drinking 12 pack daily Spring 2021). No rehabilitation or AA, just stopped. Denies nausea, vomiting, hematemesis, melena, black stools or blood in stools, abdominal swelling or leg swelling, change in sleep/wake cycle, or episodes of confusion. Past medical, surgical, family and social histories reviewed and updated as appropriate. Review Of Systems Positives as noted in HPI. All other systems were reviewed and negative. Current Medications Allergies Allergen Reactions Amoxacillin [Amoxicillin] Current Outpatient Medications Medication Sig Dispense Refill hydrOXYzine pamoate (Vistaril) 25 MG capsule Take 1 Capsule by mouth 3 times daily as needed for Itching. 90 Capsule 3 spironolactone (Aldactone) 50 MG tablet Take 1 Tablet by mouth daily. 90 Tablet 3 diclofenac (VOLTAREN) 1 % GEL topical gel Apply 4 g topically 4 times daily as needed for Pain (in leg joints). 1 Tube 2 lidocaine (LIDODERM) 5 % patch Place 1 Patch on the skin every 24 hours. 10 Patch 3 furosemide (LASIX) 20 MG tablet take 1 tablet by mouth once daily 90 Tablet 3 potassium chloride SA (K-DUR) 20 MEQ controlled release tablet Take 1 Tablet by mouth daily. 10 Tablet 0 sulfamethoxazole-trimethopri m 800-160 MG (Bactrim DS) 800-160 MG per tablet Take 1 Tablet by mouth every Thursday, , Thursday. 12 Tablet 3 lactulose 20 g/30 mL SOLN oral solution Take 30 mL by mouth 4 times daily as needed. Titrate 2-3 bowel movements/day 946 mL 3 famotidine (Pepcid) 20 MG tablet Take 1 Tablet by mouth 2 times daily. 60 Tablet 3 ondansetron (ZOFRAN-ODT) 4 MG disintegrating tablet Take 1 Tablet by mouth every 12 hours as needed for Nausea. Place 1 tablet under tongue as needed for nausea. 30 Tablet 0 mupirocin (BACTROBAN) 2 % ointment Apply topically 3 times daily. Apply thin layer to affected area. 30 g 0 vitamin B-1 (THIAMINE) 100 MG tablet Take 1 Tablet by mouth daily. 90 Tablet 3 Multiple Vitamin (Multi-Vitamins) tablet Take 1 Tablet by mouth daily. 90 Tablet 3 folic acid 1 MG tablet Take 1 Tablet by mouth daily. 90 Tablet 3 mycophenolate (CELLCEPT) 500 MG tablet Take 1 Tablet by mouth 2 times daily. 120 Tablet 3 esomeprazole (NEXIUM) 40 MG capsule Take 1 Capsule by mouth daily (30 minutes before breakfast). 28 Capsule 1 No current facility-administered medications for this visit. (more content not included)... Normal The [facility] Patient Instructionson 12-16 Price Checker Authentication Interface Message Text [facility] [phone] [address] [id number] Lab tests can be done at a scheduled visit, or by appointment. [facility] [phone] [place] [address] Park in the Outpatient [place] [facility]age (P9) Under the [facility]. Pathology is located in the [facility] [place] of the Outpatient [place] on the 2nd floor. Please fill out the paper form at the front desk agent then have a seat in the Outpatient Blood Draw Lab (Pathology) waiting area. Hours Thursday 07:00 AM - 05:30 PM Thursday 07:00 AM - 05:30 PM Thursday 07:00 AM - 05:30 PM 07:00 AM - 05:30 PM Thursday 07:00 AM - 05:30 PM [facility] [phone] [place] [address] Follow the overhead sign to [place]: Radiology/X-ray AND Lab (right arrow). Check in for testing at the Radiology AND Lab Freelance Operator window. Hours Thursday 10:00 AM - 02:00 PM Thursday 08:00 AM - 07:30 PM Thursday 08:00 AM - 07:30 PM Thursday 08:00 AM - 07:30 PM 08:00 AM - 07:30 PM Thursday 08:00 AM - 07:30 PM Thursday 08:00 AM - 04:00 PM [facility] [phone] [place] [address] Draper at the front desk agent and you will be directed to the waiting area. Laboratory staff will take you back to the laboratory. Hours Thursday 10:00 AM - 02:00 PM Thursday 07:30 AM - 07:30 PM Thursday 07:30 AM - 07:30 PM Thursday 07:30 AM - 07:30 PM 07:30 AM - 07:30 PM Thursday 07:15 AM - 07:45 PM Thursday 08:00 AM - 04:00 PM [facility] [phone] [place], [place] [id number] Enter through the front door and continue towards the back of the building. The laboratory is located on the right side. Follow the sign to Express Care / Lab Check-In . Hours Thursday 10:00 AM - 02:00 PM Thursday 07:30 AM - 07:30 PM Thursday 07:30 AM - 07:30 PM Thursday 07:30 AM - 07:30 PM 07:30 AM - 07:30 PM Thursday 07:30 AM - 07:30 PM Thursday 08:00 AM - 04:00 PM [facility] [phone] [place], [place] [id number] The [facility] is located on the first floor, room A1-143. Enter at the east entrance and follow the overhead sign to Laboratory (left arrow). On the left side of the rodrigues you will see a sign Welcome to the Laboratory . Hours Thursday 07:30 AM - 05:00 PM Thursday 07:30 AM - 05:00 PM Thursday 07:30 AM - 05:00 PM 07:30 AM - 05:00 PM Thursday 07:30 AM - 05:00 PM [facility] [phone] [address] [id number] The [facility] is located on the first floor, room [id number]. Enter through the Emergency doors and follow the signs to Medical Offices , making a right turn. Draper at the Registration 1A desk at the end of the hallway, then proceed to the Laboratory on the right. Hours Thursday 07:30 AM - 05:00 PM Thursday 07:30 AM - 05:00 PM Thursday 07:30 AM - 05:00 PM 07:30 AM - 05:00 PM Thursday 07:30 AM - 05:00 PM [facility] [phone] [place] [id number] The [facility] is located on the first floor, room 1201. Enter through the Emergency doors, go straight ahead and follow overhead signs to Main [facility] Services and Lab (right arrow). The Laboratory is located on the right side of the hallway. Hours Thursday 08:00 AM - 05:00 PM Thursday 08:00 AM - 05:00 PM Thursday 08:00 AM - 05:00 PM 08:00 AM - 05:00 PM Thursday 08:00 AM - 05:00 PM Normal The [facility] Progress Noteson 12-16-2022 Price Checker Authentication Interface Message Text Chief Complaint: Will Anderson comes to the clinic today for: Chief Complaint Patient presents with follow up Had an accident at work and fell. Present Illness: Mr.Amos Anderson comes to the clinic today for the above listed conditions. Patient fell in a hole and fell on left side. States pain has much improved since the fall. Patient hasn't tried lidocaine patch yet. Denies shortness of breath, wheezing. Coughing makes pain worse. For liver cirrhosis patient is following with GI. States he ran out of aldactone and his symptoms of leg edema worsens. Wants a refill of meds. History Review: He has a past medical history of Closed fracture of angle of jaw (HCC), HLA B27 (HLA B27 positive) (2003), and Open fracture of other and unspecified part of body of mandible. Social History Socioeconomic History Marital status: Single Tobacco Use Smoking status: Former Types: Cigarettes Smokeless tobacco: Current Types: Chew No family history on file. There is no previous surgical history on file. Diagnostics: [facility] laboratory/diagnostics reviewed and Outside laboratory/diagnostics reviewed Review of Systems As per HPI Exam: Vitals Recorded in This Encounter 12/16/2022 0949 BP: 113/57 Pulse: 85 BP position: sitting SpO2: 100 % Weight: 179 lb 1.6 oz (81.2 kg) Height: 5' 7 (1.702 m) Physical Exam Vitals and nursing note reviewed. Constitutional: General: He is not in acute distress. Appearance: Normal appearance. He is not ill-appearing. Cardiovascular: Rate and Rhythm: Normal rate and regular rhythm. Heart sounds: No murmur heard. No friction rub. No gallop. Pulmonary: Effort: Pulmonary effort is normal. No respiratory distress. Breath sounds: Normal breath sounds. No stridor. No wheezing, rhonchi or rales. Chest: Chest wall: Tenderness (mild tender on left lower ribs.) present. Abdominal: General: Bowel sounds are normal. There is no distension. Tenderness: There is no abdominal tenderness. There is no guarding. Hernia: No hernia is present. Skin: Capillary Refill: Capillary refill takes less than 2 seconds. Neurological: General: No focal deficit present. Mental Status: He is alert and oriented to person, place, and time. Psychiatric: Mood and Affect: Mood normal. Behavior: Behavior normal. Thought Content: Thought content normal. Judgment: Judgment normal. Basic Metabolic Panel (Last 5 results in the past 3 years) Na K Cl CO2 Gap Glu BUN Cr Ca 11/13/22 1158 139 3.1 102 30 10 70 5 0.50 8.7 08/25/22 1241 138 3.3 101 26 14 55 5 0.55 8.4 08/14/22 1203 132 3.0 97 24 14 89 5 0.55 7.9 05/06/22 1039 137 3.6 105 25 11 79 3 0.58 Comment: Grossly icteric; may falsely decrease creatinine 8.9 03/13/22 1159 135 3.6 103 25 11 119 3 0.51 Comment: Grossly icteric; may falsely decrease creatinine 8.2 CBC (last 3 years, up to 5 values) (Last 5 results in the past 3 years) WBC RBC Hgb Hct MCV RDW Plt 11/13/22 1158 5.7 2.69 10.4 29.4 109 15.8 82 08/25/22 1241 5.7 3.11 11.6 33.5 108 15.8 131 08/14/22 1203 9.2 3.03 11.6 31.8 105 14.8 100 05/06/22 1039 4.2 3.21 11.5 32.5 101 16.8 90 03/13/22 1159 4.0 2.81 9.9 28.4 101 16.2 114 No results found for: HBA1C Impression/Plan: Rib pain Will add - Diclofenac Sodium; Apply 4 g topically 4 times daily as needed for Pain (in leg joints). Alcoholic cirrhosis of liver without ascites (HCC) Will refill aldactone. F/u with GI in january. - hydrOXYzine Pamoate; Take 1 Capsule by mouth 3 times daily as needed for Itching. - Spironolactone; Take 1 Tablet by mouth daily. Orders AND Meds Signed During This Encounter diclofenac (VOLTAREN) 1 % GEL topical gel hydrOXYzine pamoate (Vistaril) 25 MG capsule spironolactone (Aldactone) 50 MG tablet No follow-ups on file. Dejuan Lechuga MD Normal The [facility] [facility] Price Checker Authentication Interface Message Text Patient was identified by name and date of . Aleja Rolon Normal The [facility] [facility] Progress Noteson 12-15-2022 Price Checker Authentication Interface Message Text [facility] Telemedicine Visit CC: Chief Complaint Patient presents with Fall HPI: Patient is a 37 year old cordero with a history of cirrhosis , autoimmune hemolytic anemia who presents for the below. 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 Fell forward and to the side. Elbow into left side, knocked wind out Coughing more, hurts when cough. One part is very tender to touch on the left No bruising noted Denies pain with deep breaths Need to sleep on back because of the pain Not taking any tylenol, told not take iburpofen Mychart Message 12/11 Good morning. I fell hard last week at work on my left side. Should I be concerned about it? Still hurts bad. From my lower shoulder to my hip. Patient has signed up for MyChart: Yes Patient past medical, social, family, and surgical history personally reviewed and updated in [employer]. OBJECTIVE: Sounds ewll, no acute distress Breathing comfrotably on room air ASSESSMENT AND PLAN: 1. Rib pain Orders AND Meds Signed During This Encounter X-ray Ribs Left Unilateral (Routine) lidocaine (LIDODERM) 5 % patch Documentation: Mode: Telephone Patient Patient Work Phone: Patient Cell Preferred phone: [phone] Consent: I confirmed patient understanding of the risks and benefits of telehealth visits and obtained consent to proceed with the telehealth visit. Location of Patient: Home of patient Seen for rib pain after a fall. Pain with cough and palpation. No difficulty with breathing. Recommend lidocain patch and xr ribs. Patient would like to avoid oral medication. Has in person visit tomorrow. Concerned if any other internal damage, he will keep appointment so Dr. Lechuga can do a physical exam. RTC tomorrow as scheduled Theo Burks MD Family Medicine Normal [facility] Tele[facility] Encounteron 2022 Price Checker Authentication Interface Message Text Called patient and made appointment with tomorrow Normal [facility] Telephone Encounteron 2022 Price Checker Authentication Interface Message Text Called patient and made appointment Normal The [facility] Syst em ALPHA FETOPROTEIN TUMOR ANDRIA Jeri 11-13-2022 AFP 4.4 ng/mL Normal <=8.4 The [facility] Comment on above: Performed By: #### H EMO DNA #### [facility] Path[facility] [address] [facility] [place], [place] AFP 4.4 ng/mL NINF - 8.4 ng/mL [facility] Interpretation and review of laboratory results Normal [facility] BASIC METABOLIC PANELon Anion gap [Moles/Vol] 10 mmol/L Normal 10-20 The [facility] Comment on above: Performed By: #### H EMO DNA #### [facility] [address] [facility] [place], [place] Calcium [Mass/Vol] 8.7 mg/dL Normal 8.4-10.4 The [facility] Comment on above: Performed By: #### H EMO DNA #### [facility] [address] [facility] [place], [place] Chloride [Moles/Vol] 102 mmol/L Normal 97-111 The [facility] Comment on above: Performed By: #### H EMO DNA #### [facility] [address] [facility] [place], [place] CO2 [Moles/Vol] 30 mmol/L Normal 21-30 The [facility] Comment on above: Performed By: #### H EMO DNA #### [facility] [address] [facility] [place], [place] Creatinine [Mass/Vol] 0.50 mg/dL Low 0.80-1.30 The [facility] Comment on above: Performed By: #### H EMO DNA #### [facility] [address] [facility] [place], [place] ESTIMATED GFR (CKD-EPI) 134 mL/min/1.73sqm Normal >=60 [facility] Comment on above: Result Comment: 2020 CKD EPI Equation using Creatinine without Race Comment: Estimated glomerular filtration rate (eGFR) is calculated without a race coefficient. Values should be interpreted in the context of the patient's full clinical presentation. Reference: 1. Fran C, Akhil M, Linden DC, et al.. A Unifying Approach for GFR Estimation: Recommendations of the NKF-ASN Task Force on Reassessing the Inclusion of Race in Diagnosing Kidney Disease. [place] Journal of Kidney Diseases 2021;79(2):268-88.e1. 2. N Engl J Med 1 Vol. 385 Issue 19 Pages 6692-2271 Performed By: #### H [facility] #### [facility] [address] [facility] [place], [place] Glucose [Mass/Vol] 70 mg/dL Normal 68-110 The [facility] Comment on above: Performed By: #### H EMO DNA #### [facility] [address] [facility] [place], [place] Potassium [Moles/Vol] 3.1 mmol/L Low 3.3-5.3 [facility] Comment on above: Performed By: #### H EMO DNA #### [facility] [address] [facility] [place], [place] Sodium [Moles/Vol] 139 mmol/L Normal 135-148 [facility] Comment on above: Performed By: #### H EMO DNA #### [facility] [address] [facility] [place], [place] Urea nitrogen [Mass/Vol] 5 mg/dL Low 8-22 [facility] Comment on above: Performed By: #### H EMO DNA #### [facility] [address] [facility] [place], [place] Basic metabolic 2000 panelon 11-13-2022 Anion gap [Moles/Vol] 10 mmol/L 10 - 20 [facility] Calcium [Mass/Vol] 8.7 mg/dL 8.4 - 10.4 mg/dL [facility] Chloride [Moles/Vol] 102 mmol/L 97 - 111 mmol/L [facility] CO2 [Moles/Vol] 30 mmol/L 21 - 30 mmol/L [facility] Creatinine [Mass/Vol] 0.50 mg/dL Low 0.80 - 1.30 mg /dL [facility] GFR/1.73 sq M.predicted MDRD (S/P/Bld) [Vol rate/Area] 134 mL/min/{1.73_m2} - PINF [facility] Comment on above: 2020 CKD EPI Equatio n using Creatinine without Race Comment: Estimated glomerular filtration rate (eGFR) is calculated without a race coefficient. Values should be interpreted in the context of the patient's full clinical presentation. Reference: 1. Fran C, Akhil M, Linden DC, et al.. A Unifying Approach for GFR Estimation: Recommendations of the NKF-ASN Task Force on Reassessing the Inclusion of Race in Diagnosing Kidney Disease. [place] Journal of Kidney Diseases 2021;79(2):268-88.e1. 2. N Engl J Med 2020 Vol. 385 Issue 19 Pages 0954-1448 Glucose [Mass/Vol] 70 mg/dL 68 - 110 mg/dL [facility] Potassium [Moles/Vol] 3.1 mmol/L Low 3.3 - 5.3 mmol /L [facility] Sodium [Moles/Vol] 139 mmol/L 135 - 148 mmol/L [facility] Urea nitrogen [Mass/Vol] 5 mg/dL Low 8 - 22 mg/d L [facility] CBC WITH DIFFERENTIALon 03-0 Basophils (Bld) [#/Vol] 0.04 10*3/uL Normal 0.00-0.20 [facility] Comment on above: Performed By: #### D AT #### [facility] PATH[facility]ORY [address] [place] [address], Basophils/100 WBC (Bld) 0.6 % Normal <=1.9 T he [facility] Comment on above: Performed By: #### D AT #### [facility] [address] [place], [place], Eosinophils (Bld) [#/Vol] 0.21 10*3/uL Normal 0.00-0.7 0 The [facility] Comment on above: Performed By: #### D AT #### [facility] [address] [place], [place], Eosinophils/100 WBC (Bld) 3.6 % Normal 0.1-4.0 [facility] Comment on above: Performed By: #### D AT #### [facility] [address] [place], [place], Erythrocyte distribution wid th (RBC) [Ratio] 15.8 % High 11.5-14.5 The [facility] Comment on above: Performed By: #### D AT #### [facility] [address] [place], [place], Hematocrit (Bld) [Volume fraction] 29.4 % Low 4 1.0-53.0 The [facility] Comment on above: Performed By: #### D AT #### [facility] [address] [place], [place], Hemoglobin (Bld) [Mass/Vol] 10.4 g/dL Low 13.9-16. 3 The [facility] Comment on above: Performed By: #### D AT #### [facility] [address] [place], [place], Lymphocytes (Bld) [#/Vol] 1.21 10*3/uL Normal 1.00-4.8 0 The [employer] [facility] Comment on above: Performed By: #### D AT #### [facility] [address] [place], [place], Lymphocytes/100 WBC (Bld) 21.2 % Low 24.0-44.0 The [facility] Comment on above: Performed By: #### D AT #### [facility] [address] [place], [place], MCH (RBC) [Entitic mass] 38.5 pg High 26.0-34.0 The [facility] Comment on above: Performed By: #### D AT #### [facility] [address] [place], [place], MCHC (RBC) [Mass/Vol] 35.3 g/dL Normal 32.0-35.9 The [facility] Comment on above: Performed By: #### D AT #### [facility] [address] [place] [address], MCV (RBC) [Entitic vol] 109 fL High 80-100 T [facility] Comment on above: Performed By: #### D AT #### [facility] [address] [place] [address], MONOCYTE DISTRIBUTION WIDTH Normal The [facility] Comment on above: Performed By: #### D AT #### [facility] [address] [place] [address], Monocytes (Bld) [#/Vol] 0.65 10*3/uL Normal 0.20-1.00 The [facility] Comment on above: Performed By: #### D AT #### [facility] [address] [place] [address], Monocytes/100 WBC (Bld) 11.4 % High 2.0-11.0 T [facility] Comment on above: Performed By: #### D AT #### [facility] [address] [place] [address], Neutrophils (Bld) [#/Vol] 3.63 10*3/uL Normal 1.50-8.0 0 The [facility] Comment on above: Performed By: #### D AT #### [facility] [address] [place] [address], Neutrophils/100 WBC (Bld) 63.2 % Normal 31.0-76.0 The [facility] Comment on above: Performed By: #### D AT #### [facility] [address] [place] [address], Platelet mean volume (Bld) [ Entitic vol] 8.2 fL Normal 7.5-11.2 The [facility] Comment on above: Performed By: #### D AT #### [facility] [address] [place] [address], Platelets (Bld) [#/Vol] 82 10*3/uL Low 150-400 T [facility] Comment on above: Performed By: #### D AT #### [facility] [address] [place] [address], RBC (Bld) [#/Vol] 2.69 10*6/uL Low 4.50-5.90 The [facility] System Comment on above: Performed By: #### D AT #### S PATHOLOGY LABORATORY [address] [place], [place], WBC (Bld) [#/Vol] 5.7 10*3/uL Normal 4.5-11.5 The [facility] Comment on above: Performed By: #### D AT #### [facility] [address] [place], [place], Basophils (Bld) [#/Vol] 0.04 10*3/uL 0.00 - 0.2 0 K/uL [facility] Basophils/100 WBC (Bld) 0.6 % NINF - 1.9 % [facility] Eosinophils (Bld) [#/Vol] 0.21 10*3/uL 0.00 - 0 .70 K/uL [facility] Eosinophils/100 WBC (Bld) 3.6 % 0.1 - 4.0 % [facility] Erythrocyte distribution wid th (RBC) [Ratio] 15.8 % High 11.5 - 14.5 % [facility] Hematocrit (Bld) [Volume fraction] 29.4 % Low 4 1.0 - 53.0 % [facility] Hemoglobin (Bld) [Mass/Vol] 10.4 g/dL Low 13.9 - 1 6.3 g/dL [facility] Lymphocytes (Bld) [#/Vol] 1.21 10*3/uL 1.00 - 4 .80 K/uL [facility] Lymphocytes/100 WBC (Bld) 21.2 % Low 24.0 - 44. 0 % [facility] MCH (RBC) [Entitic mass] 38.5 pg High 26.0 - 34.0 pg [facility] MCHC (RBC) [Mass/Vol] 35.3 g/dL 32.0 - 35.9 g/ dL [facility] MCV (RBC) [Entitic vol] 109 fL High 80 - 100 fL [facility] Monocyte distribution width Auto (Bld) [Entitic vol] [facility] Monocytes (Bld) [#/Vol] 0.65 10*3/uL 0.20 - 1.0 0 K/uL [facility] Monocytes/100 WBC (Bld) 11.4 % High 2.0 - 11.0 % [facility] Neutrophils (Bld) [#/Vol] 3.63 10*3/uL 1.50 - 8 .00 K/uL [facility] Neutrophils/100 WBC (Bld) 63.2 % 31.0 - 76. 0 % [facility] Platelet mean volume (Bld) [ Entitic vol] 8.2 fL 7.5 - 11.2 fL [facility] Platelets (Bld) [#/Vol] 82 10*3/uL Low 150 - 400 K/ uL [facility] RBC (Bld) [#/Vol] 2.69 10*6/uL Low [facility] WBC (Bld) [#/Vol] 5.7 10*3/uL 4.5 - 11.5 K/uL [facility] DIRECT ANTIGLOBULIN TESTon 0 11-13-2022 AYLIN PS INT Negative Normal The [facility] System Comment on above: Performed By: #### D AT #### [facility] [address] [place], [place], Direct antiglobulin test.poly specific reagent Ql (RBC) Ne gative [facility] HAPTOGLOBINon 11-13-2022 HAPTOGLOBIN < 30 Low 36-220 The [facility] Comment on above: Performed By: #### H EMO DNA #### [facility] Pathology [address] [place], [place] Haptoglobin [Mass/Vol] mg/dL Low 36 - 220 mg/d L [facility] Interpretation and review of laboratory results Abnormal [facility] HEMOCHROMATOSIS DNA TESTon 0 11-13-2022 HFE GENE MUTATION ANALYSIS See Below Normal The [facility] Comment on above: Order Comment: Kelly esparza Agency Address Site ID: [id number] Name: [employer], Address: [address] [place] [id number] Director: Ambika Lara MD,PhD,HÉCTOR Result Comment: RESU LT: NEGATIVE Interpretation: DNA testing indicates that this individual is negative for the C282Y and H63D pathogenic variants in the HFE gene. This negative result significantly reduces the likelihood of hereditary hemochromatosis (HH) in this individual. However, it does not rule out the presence of other pathogenic variants within the HFE gene or a diagnosis of HH. The risk of this individual to carry an HFE pathogenic variant other than those tested in this assay depends greatly on family and clinical history as well as ethnicity. This assay does not test for other primary or secondary iron overload disorders. Laboratory results and submitted clinical information reviewed by Lorna Strong, Ph.D., FACMG, HCLD, CGMB. DETAILED ASSAY INFORMATION: Hereditary hemochromatosis (HH) is an autosomal recessive disorder of iron metabolism that can result in iron overload and potential organ failure. It is one of the most common genetic disorders in individuals of - ancestry, with an estimated carrier frequency of 10%. HH is caused by pathogenic variants in the HFE gene. Most individuals with HH (60-90%) are homozygous for the C282Y pathogenic variant. A smaller percentage of affected individuals are either compound heterozygous for the C282Y and H63D pathogenic variants (3%-8%), or homozygous for the H63D pathogenic variant (approximately 1%). METHODOLOGY: This assay detects two pathogenic variants in the HFE gene, C282Y (NM 104678.2: c.845G>A, p.[id number]) and H63D (NM 728718.2: c.187C>G, p.Uiw62Tyg), that are commonly associated with HH. These variants are detected by multiplex-polymerase chain reaction (PCR) amplification, followed by restriction enzyme digestion and capillary electrophoresis. LIMITATIONS: This assay does not detect other pathogenic variants in the HFE gene that may be associated with HH. Although rare, false positive or false negative results may occur. All results should be interpreted in the context of clinical findings, relevant history, and other laboratory data. Health care providers, please contact your local [employer] genetic counselor or call [phone] ( ) for assistance with the interpretation of these results. This test was developed and its analytical performance characteristics have been determined by [employer] [facility]. It has not been cleared or approved by FDA. This assay has been validated pursuant to the CLIA regulations and is used for clinical purposes. For more information, please refer to http://education.[employer]/faq/hemochromatosis. (This link is being provided for informational/educational purposes only.) Reviewed and signed by Laboratory results and submitted clinical information reviewed by Lorna Strong, Ph.D., FACMG, HCLD, CGMB, Signed on 11/28/2022 at 20:40 Performed By: #### H EMO DNA #### [facility] [address] [facility] [place], [place] HEPATIC FUNCTION PANELon Albumin [Mass/Vol] 2.9 g/dL Low 3.4-5.1 The [facility] Comment on above: Performed By: #### H EMO DNA #### [facility] [address] [facility] [address] [place], [place] ALK 386 IU/L High 40-200 The [facility] Comment on above: Performed By: #### H EMO DNA #### [facility] [address] [place] [address] [place], [place] ALT [Catalytic activity/Vol] 36 U/L Normal 7-40 The [facility] Comment on above: Performed By: #### H EMO DNA #### [facility] [address] [facility] [place], [place] AST [Catalytic activity/Vol] 68 U/L High 7-40 The [facility] Comment on above: Performed By: #### H EMO DNA #### [facility] [address] [place] [address] [place] Bilirubin [Mass/Vol] 6.9 mg/dL High 0.1-1.5 The [facility] Comment on above: Performed By: #### H EMO DNA #### [facility] [address] [facility] [place], [place] Bilirubin.direct [Mass/Vol] 1.88 mg/dL High 0.10-0.3 0 The [facility] Comment on above: Performed By: #### H EMO DNA #### [facility] [address] [facility] [place], [place] Protein [Mass/Vol] 7.0 g/dL Normal 6.2-8.3 The [facility] Comment on above: Performed By: #### H EMO DNA #### [facility] [address] [facility] [place], [place] Albumin [Mass/Vol] 2.9 g/dL Low 3.4 - 5.1 g/dL [facility] ALP [Catalytic activity/Vol] 386 U/L High [facility] ALT [Catalytic activity/Vol] 36 U/L [facility] AST [Catalytic activity/Vol] 68 U/L High [facility] Bilirubin [Mass/Vol] 6.9 mg/dL High 0.1 - 1.5 mg/dL [facility] Bilirubin.direct [Mass/Vol] 1.88 mg/dL High 0.10 - 0 .30 mg/dL [facility] Protein [Mass/Vol] 7.0 g/dL 6.2 - 8.3 g/dL [facility] LDHon 11-13-2022 LD 255 IU/L High 50-220 The [facility] Comment on above: Performed By: #### H EMO DNA #### [facility] [address] [facility] [address] [place], [place] LDH [Catalytic activity/Vol] 255 U/L High [facility] No Panel Informationon 11-13 Interpretation and review of laboratory results Abnormal [facility] Interpretation and review of laboratory results Abnormal [facility] PROTHROMBIN TIME AND INRon 0 11-13-2022 INR Coag (PPP) [Relative time] 1.71 {INR} High 0.90- 1.10 The [facility] Comment on above: Performed By: #### G ENTEST #### [facility] [address] [place], [place], PT Coag (PPP) [Time] 19.2 s High 9.7-12.9 The [facility] Comment on above: Performed By: #### G ENTEST #### [facility] [address] [place], [place], INR Coag (PPP) [Relative time] 1.71 {INR} High 0.90 - 1.10 [facility] Interpretation and review of laboratory results Abnormal [facility] PT Coag (PPP) [Time] 19.2 s High [facility] Progress Noteson 11-13-2022 Price Checker Authentication Interface Message Text Will Anderson presents for oncology nurse visit Patient was identified by name and date of . Patient at risk for falls: No Falls Risk protocol implemented: No Has the patient started any medications, over the counter medications or herbal medications? No Blood drawn from Peripheral venipuncture LAC Complications: None. Marlin Polanco RN Normal [facility] Price Checker Authentication Interface Message Text Hematology AND Oncology Clinic Note Reason for Consult: Hemolytic anemia Alcoholic cirrhosis Thrombocytopenia Long-term steroid use Referring Provider: Afua Umanzor MD Chief Complaint Patient presents with Monitoring/follow-up History of Present Illness Will Anderson is a 37 year old male with hx of excessive alcohol use with alcoholic liver cirrhosis, presented to ER in decompensated liver failure. 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 He was discharged home on 1 milligram/kilogram of prednisone which pt stopped prematurely. He was placed on MMF 1000mg BID. Pt non complaint due to side effect. Here for MDVS, complaint of leg swelling And labs. Initial consult visit HPI Per patient, had a hard time with steroid at home. Was unable to sleep and kept him agitated almost all times. He decided to stop prednisone after 7 days And has been doing much better since then. Has not had any alcohol since discharge. To color a his skin and eyes is slowly coming back to normal. Interval visit 11/15/2022 he currently feels well overall. Swelling in legs is well controlled with as needed diuretics. He does not take potassium supplements. Still has some nausea and vomiting, about once a day after taking her cellcept. Denies CP, SOB, palpitations, dizziness or light-headedness. Denies having any changes in weight, appetite, or energy. No night sweats, fevers, chills, or new lumps. Eating and drinking well. Review of Systems Constitutional: Negative for chills, fever, malaise/fatigue and weight loss. HENT: Negative for congestion, hearing loss, sinus pain and tinnitus. Eyes: Negative for blurred vision and double vision. Jaundice Respiratory: Negative for cough, sputum production, shortness of breath and wheezing. Cardiovascular: Negative for chest pain, palpitations, orthopnea and leg swelling. Gastrointestinal: Negative for abdominal pain, blood in stool, constipation, diarrhea, heartburn, nausea and vomiting. Genitourinary: Negative for dysuria, frequency and urgency. Musculoskeletal: Negative for back pain, falls, joint pain and myalgias. Skin: Negative for rash. Neurological: Negative for dizziness, tingling, tremors, sensory change, focal weakness, seizures, weakness and headaches. Endo/Heme/Allergies: Does not bruise/bleed easily. Psychiatric/Behavioral: Negative for depression, substance abuse and suicidal ideas. The patient is not nervous/anxious and does not have insomnia. 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 SOCIAL HISTORY: Social History Socioeconomic History Marital status: Single Tobacco Use Smoking status: Former Types: Cigarettes Smokeless tobacco: Current Types: Chew CURRENT MEDICATIONS: Current Outpatient Medications Medication Sig Dispense Refill potassium chloride SA (K-DUR) 20 MEQ controlled release tablet Take 1 Tablet by mouth daily. 10 Tablet 0 sulfamethoxazole-trimethop rim 800-160 MG (Bactrim DS) 800-160 MG per tablet Take 1 Tablet by mouth every Thursday, , Thursday. 12 Tablet 3 lactulose 20 g/30 mL SOLN oral solution Take 30 mL by mouth 4 times daily as needed. Titrate 2-3 bowel movements/day 946 mL 3 furosemide (Lasix) 20 MG tablet Take 1 Tablet by mouth daily. 30 Tablet 0 spironolactone (Aldactone) 50 MG tablet Take 1 Tablet by mouth daily. 90 Tablet 0 famotidine (Pepcid) 20 MG tablet Take 1 Tablet by mouth 2 times daily. 60 Tablet 3 ondansetron (ZOFRAN-ODT) 4 MG disintegrating tablet Take 1 Tablet by mouth every 12 hours as needed for Nausea. Place 1 tablet under tongue as needed for nausea. 30 Tablet 0 mupirocin (BACTROBAN) 2 % ointment Apply topically 3 times daily. Apply thin layer to affected area. 30 g 0 vitamin B-1 (THIAMINE) 100 MG tablet Take 1 Tablet by mouth daily. 90 Tablet 3 Multiple Vitamin (Multi-Vitamins) tablet Take 1 Tablet by mouth daily. 90 Tablet 3 folic acid 1 MG tablet Take 1 Tablet by mouth daily. 90 Tablet 3 mycophenolate (CELLCEPT) 500 MG tablet Take 1 Tablet by mouth 2 times daily. 120 Tablet 3 esomeprazole (NEXIUM) 40 MG capsule Take 1 Capsule by mouth daily (30 minutes before breakfast). 28 Capsule 1 No current facility-administered medications for this encounter. ALLERGIES: Amoxacillin [amoxicillin] Objective Vitals: 11/13/22 1123 BP: 153/62 Pulse: 86 Resp: 14 Temp: 98.6 ???F (37 ???C) SpO2: 100% Physical Exam Constitutional: General: He is not in acute distress. HENT: Head: Normocephalic and atraumatic. Mouth/Throat: Pharynx: No oropharyngeal exudate. Eyes: General: No scleral icterus. Pupils: Pupils are equal, round, and reactive to light. Co (more content not included)... Normal [facility] Price Checker Authentication Interface Message Text .Patient was identified by name and date of . Jojo Garcia .Patient at risk for falls:No Falls Risk protocol implemented: No Normal [facility] RETICULOCYTE COUNTon 023 IMMATURE RETICULOCYTE FRACTION 0.45 Normal 0.30- 0.50 [facility] [facility] Comment on above: Performed By: #### D AT #### [facility] [address] [place] [address], RETIC # 0.09 M/uL High 0.03-0.08 [facility] [employer] [facility] Comment on above: Performed By: #### D AT #### [facility] [address] [place] [address], RETIC % 3.3 % High 0.5-1.5 [facility] [employer] [facility] Comment on above: Performed By: #### D AT #### [facility] [address] [place] [address], Immature reticulocytes/Total reticulocytes (Bld) 0.45 % 0.30 - 0.50 [facility] Reticulocytes (Bld) [#/Vol] 0.09 10*3/uL High [facility] Reticulocytes/100 RBC (Bld) 3.3 % High 0.5 - 1. 5 % [facility] Progress Noteson 10-27-2022 Price Checker Authentication Interface Message Text Department of Gastroenterology and Hepatology Hepatology Clinic Follow Up Visit GI Attending Physician: Dr. Haley Gary MD PCP: Theo Burks MD Last GI Visit: 08/25/22 Background History Will Anderson is a 36 year old male with history notable for EtOH cirrhosis (decompensated by ascites), autoimmune hemolytic anemia (on cellcept) who was referred to hepatology clinic for EtOH cirrhosis with worsening hyperbilirubinemia despite quitting EtOH x 6 months (last use 01/2022). Course also c/b LE edema and ascites with recent ED visit for RLE cellulitis for which he completed 7 d of PO Keflex. Interval History He was placed on water pills the last visit because of swelling in his legs and that helped. After the one month he took them he ran out. He then was having some decreased urination for sometime until he restarted medications and he is feeling better. He stopped drinking 12 pack daily up until Spring last year. No rehabilitation or AA, just stopped. Denies nausea, vomiting, hematemesis, melena, black stools or blood in stools, abdominal swelling or leg swelling, change in sleep/wake cycle, or episodes of confusion. Past medical, surgical, family and social histories reviewed and updated as appropriate. Review Of Systems Positives as noted in HPI. All other systems were reviewed and negative. Current Medications Allergies Allergen Reactions Amoxacillin [Amoxicillin] Current Outpatient Medications Medication Sig Dispense Refill furosemide (Lasix) 20 MG tablet Take 1 Tablet by mouth daily. 30 Tablet 0 spironolactone (Aldactone) 50 MG tablet Take 1 Tablet by mouth daily. 30 Tablet 0 ondansetron (ZOFRAN-ODT) 4 MG disintegrating tablet Take 1 Tablet by mouth every 12 hours as needed for Nausea. Place 1 tablet under tongue as needed for nausea. 30 Tablet 2 mupirocin (BACTROBAN) 2 % ointment Apply topically 3 times daily. Apply thin layer to affected area. 30 g 0 lactulose 20 g/30 mL SOLN oral solution Take 30 mL by mouth 4 times daily as needed. Titrate 2-3 bowel movements/day 946 mL 3 vitamin B-1 (THIAMINE) 100 MG tablet Take 1 Tablet by mouth daily. 90 Tablet 3 Multiple Vitamin (Multi-Vitamins) tablet Take 1 Tablet by mouth daily. 90 Tablet 3 folic acid 1 MG tablet Take 1 Tablet by mouth daily. 90 Tablet 3 mycophenolate (CELLCEPT) 500 MG tablet Take 1 Tablet by mouth 2 times daily. 120 Tablet 3 esomeprazole (NEXIUM) 40 MG capsule Take 1 Capsule by mouth daily (30 minutes before breakfast). 28 Capsule 1 No current facility-administered medications for this visit. Physical Exam BP 128/55 Pulse 84 Temp 97.5 ???F (36.4 ???C) (Temporal) Wt 169 lb 12.8 oz (77 kg) SpO2 100% BMI 26.59 kg/m??? General: well nourished, well groomed, pleasant, NAD HEENT: normocephalic, atraumatic, MMM, no scleral icterus Pulm: no increased WOB on room air, CTAB Card: RRR, no murmurs Abdomen: soft, nontender, nondistended, normal bowel sounds Extremities: no RENATO, no gross deformity Skin: WWP, no jaundice Neuro: A AND Ox3, no focal deficits, moving all extremities, normal ambulation, no asterixis, no tremor or other abnormal movements Psych: appropriate mood and affect, linear thinking Labs CBC (last 3 years, up to 5 values) (Last 5 results in the past 3 years) WBC RBC Hgb Hct MCV RDW Plt 08/25/22 1241 5.7 3.11 11.6 33.5 108 15.8 131 08/14/22 1203 9.2 3.03 11.6 31.8 105 14.8 100 05/06/22 1039 4.2 3.21 11.5 32.5 101 16.8 90 03/13/22 1159 4.0 2.81 9.9 28.4 101 16.2 114 02/11/22 1115 4.9 2.69 10.0 29.1 108 17.1 81 Basic Metabolic Panel (Last 5 results in the past 3 years) Na K Cl CO2 Gap Glu BUN Cr Ca 08/25/22 1241 138 3.3 101 26 14 55 5 0.55 8.4 08/14/22 1203 132 3.0 97 24 14 89 5 0.55 7.9 05/06/22 1039 137 3.6 105 25 11 79 3 0.58 Comment: Grossly icteric; may falsely decrease creatinine 8.9 03/13/22 1159 135 3.6 103 25 11 119 3 0.51 Comment: Grossly icteric; may falsely decrease creatinine 8.2 02/11/22 1115 134 3.3 103 24 10 105 7 0.49 Comment: Grossly icteric; may falsely decrease creatinine 8.2 LFT's (last 3 years, up to 5 values) (Last 5 results in the past 3 years) T Prot Albumin D Bili T Bili Alk Phos ALT AST 08/25/22 1241 7.2 3.0 2.20 7.7 389 56 103 08/14/22 1203 6.4 2.9 2.83 10.6 Comment: Elevated bilirubin may falsely lower creatinine 245 47 96 05/06/22 1039 6.7 3.0 1.50 8.3 373 47 87 03/13/22 1159 6.2 2.6 1.20 5.6 278 33 68 02/11/22 1115 6.2 2.8 1.70 7.7 226 77 88 INR (no units) Date Value 01/17/2022 1.97 (H) 01/16/2022 2.08 (H) 01/15/2022 1.89 (H) 01/14/2022 1.94 (H) 01/13/2022 2.05 (H) No results found for: AFP Imaging US liver 08/21/2022 IMPRESSION: Limited examination. Cirrhotic liver without a focal suspicious hepatic lesion, within t (more content not included)... Normal The [facility] Price Checker Authentication Interface Message Text Patient was identified by name and date of . Eze SchillingPatient at risk for falls:No Falls Risk protocol implemented: No Normal The [facility] Anesthesia Preprocedure Eval uationon 09-21-2022 Price Checker Authentication Interface Message Text ASA: 3 Past Medical History and Review of Systems Pulmonary Dental Endo Neuro/Psych Cardiovascular (+) Surgical risk: low; Cardiac condition: minor ECG reviewed Comment: EKG 01/10/2022 Sinus rhythm with marked sinus arrythmia Otherwise normal ECG When compared with ECG of 08-JAN-2022 08:43, QT has shortened Confirmed by ALICIA HOPKINS ([id number]) on 01/10/2022 6:17:03 PM Echo 05/06/2022 Normal LV systolic function. The left ventricular ejection fraction (LVEF) is 70%. Normal RV systolic function. Dilated left atrium. Diastolic LV function assessed by resting Doppler is uncertain. No hemodynamically significant valve disease. Noninvasive hemodynamic assessment is consistent with a normal CVP. The pulmonary artery systolic pressure could not be estimated. GI/Hepatic/Renal (+) GERD, liver disease, cirrhosis alcohol related, Heme/Other (+) bleeding disorder, anemia, Comment: Thrombocytopenia Other ROS: HLA B27 EtOH abuse Physical Exam Airway Dental Pulmonary Cardiovascular Neuro Plan Anesthesia plan: MAC (NC) Medications may include (but not limited to): anxiolytics, narcotic analgesics and IV hypnotics Pain management: May include (but not limited to): anxiolytics and narcotic analgesics Anesthesia risks / alternatives discussed pre-op Questions answered / anesthesia plan accepted Normal [facility] Telephone Encounteron 2022 Price Checker Authentication Interface Message Text Situation: Pt calling to reschedule colonoscopy Background: Colonoscopy scheduled for 09/22/22, pt needs to reschedule d/t lack of transportation Assessment: N/A Recommendation: Advised patient that this nurse cannot reschedule this procedure so he should call back Thursday morning. Will also send a message to GI to let them know patient is cancelling and will need rescheduled. Tanika Arias RN Normal [facility] [employer] [facility] [facility] Progress Noteson 08-29-2022 Price Checker Authentication Interface Message Text [facility] Telemedicine Visit CC: Chief Complaint Patient presents with * Boil/carbuncle/cellulitis local HPI: Patient is a 36 year old male with a history of alcoholic cirrhosis , autoimmune hemolytic anemia who presents for followup of cellulitis Right Lower Extremity Cellulitis: - At last visit 08/25 extended antibiotic course to 14d given immunosuppression and slow response to treatment - Since last visit also started diuretics from hepatology - Since last visit, swelling has gone down, redness has disappeared - Muscles more painful. R > L. Like sore from a workout - No weakness, numbness, tinging - No fevers, chills, night sweats Patient has signed up for MyChart: Yes Patient past medical, social, family, and surgical history personally reviewed and updated in [employer]. OBJECTIVE: There were no vitals taken for this visit. Gen: Sounds well, no acute distress Resp: breathing comfortably ASSESSMENT AND PLAN: 1. Cellulitis, unspecified cellulitis site 2. Muscle soreness Orders AND Meds Signed During This Encounter * Creatine Kinase Documentation: Mode: Telephone Patient Patient Work Phone: Patient Cell Preferred phone: [phone] Consent: I confirmed patient understanding of the risks and benefits of telehealth visits and obtained consent to proceed with the telehealth visit. Location of Patient: Home of patient Redness, pain, and swelling improved since Thursday. Worsening muscle aches, which is unexpected. Improving electrolytes on 08/25 (thought low glucose) Given history of redness and swelling will obtain CK, to obtain at earliest convenience. RTC PRN Theo Burks MD Family Medicine Normal [facility] SMOOTH MUSC ATB SCRN & TITRO rdered By: Juan Luis Ferguson on 08-26-2022 Interpretation and review of laboratory results Normal [facility] Work Phone: Smooth muscle Ab Ql (S) Negative Negative [facility] Work Phone: Negative SMA test do es not exclude the possibility of chronic liver disease. . I certify that I personally conducted the diagnostic evaluation of the above specimen(s) and have rendered the final diagnosis(es). [facility] Work Phone: [facility] Work Phone: BASIC METABOLIC PANELon 08-07 Anion gap [Moles/Vol] 14 mmol/L Normal 10-20 [facility] Comment on above: Performed By: #### G ENTEST #### [facility] [address] [place] [address], Calcium [Mass/Vol] 8.4 mg/dL Normal 8.4-10.4 [facility] Comment on above: Performed By: #### G ENTEST #### [facility] [address] [place], [place], Chloride [Moles/Vol] 101 mmol/L Normal 97-111 [facility] Comment on above: Performed By: #### G ENTEST #### [facility] [address] [place] [address], CO2 [Moles/Vol] 26 mmol/L Normal 21-30 [facility] Comment on above: Performed By: #### G ENTEST #### [facility] [address] [place], [place], Creatinine [Mass/Vol] 0.55 mg/dL Low 0.80-1.30 [facility] Comment on above: Performed By: #### G ENTEST #### [facility] [address] [place], [place], ESTIMATED GFR (CKD-EPI) 131 mL/min/1.73sqm Normal >=60 [facility] Comment on above: Result Comment: 2020 CKD EPI Equation using Creatinine without Race Comment: Estimated glomerular filtration rate (eGFR) is calculated without a race coefficient. Values should be interpreted in the context of the patient's full clinical presentation. Reference: 1. Fran C, Akhil M, Linden SAGASTUME, et al.. A Unifying Approach for GFR Estimation: Recommendations of the NKF-ASN Task Force on Reassessing the Inclusion of Race in Diagnosing Kidney Disease. [place] Journal of Kidney Diseases 2021;79(2):268-88.e1. 2. N Engl J Med 2020 Vol. 385 Issue 19 Pages 6904-1441 Performed By: #### G ENTEST #### [facility] [address] [place], [place], Glucose [Mass/Vol] 55 mg/dL Low 68-110 [facility] Comment on above: Performed By: #### G ENTEST #### [facility] [address] [place], [place], Potassium [Moles/Vol] 3.3 mmol/L Normal 3.3-5.3 [facility] Comment on above: Performed By: #### G ENTEST #### [facility] [address] [place], [place], Sodium [Moles/Vol] 138 mmol/L Normal 135-148 [facility] Comment on above: Performed By: #### G ENTEST #### [facility] [address] [place], [place], Urea nitrogen [Mass/Vol] 5 mg/dL Low 8-22 [facility] Comment on above: Performed By: #### G ENTEST #### [facility] [address] [place], [address] Basic metabolic 2000 panelon 08-25-2022 Anion gap [Moles/Vol] 14 mmol/L 10 - 20 [facility] Calcium [Mass/Vol] 8.4 mg/dL 8.4 - 10.4 mg/dL [facility] Chloride [Moles/Vol] 101 mmol/L 97 - 111 mmol/L [facility] CO2 [Moles/Vol] 26 mmol/L 21 - 30 mmol/L [facility] Creatinine [Mass/Vol] 0.55 mg/dL Low 0.80 - 1.30 mg /dL [facility] GFR/1.73 sq M.predicted MDRD (S/P/Bld) [Vol rate/Area] 131 mL/min/{1.73_m2} - [facility] Comment on above: 2020 CKD EPI Equatio n using Creatinine without Race Comment: Estimated glomerular filtration rate (eGFR) is calculated without a race coefficient. Values should be interpreted in the context of the patient's full clinical presentation. Reference: 1. Fran C, Akhil M, Linden SAGASTUME, et al.. A Unifying Approach for GFR Estimation: Recommendations of the NKF-ASN Task Force on Reassessing the Inclusion of Race in Diagnosing Kidney Disease. [place] Journal of Kidney Diseases 202;79(2):268-88.e1. 2. N Engl J Med 2020 Vol. 385 Issue 19 Pages 9534-9887 Glucose [Mass/Vol] 55 mg/dL Low 68 - 110 mg/dL [facility] Potassium [Moles/Vol] 3.3 mmol/L 3.3 - 5.3 mmol /L [facility] Sodium [Moles/Vol] 138 mmol/L 135 - 148 mmol/L [facility] Urea nitrogen [Mass/Vol] 5 mg/dL Low 8 - 22 mg/d L [facility] CBC WITH DIFFERENTIALon 08-07 Basophils (Bld) [#/Vol] 0.06 10*3/uL 0.00 - 0.2 0 K/uL [facility] Basophils/100 WBC (Bld) 1.0 % NINF - 1.9 % [facility] Eosinophils (Bld) [#/Vol] 0.16 10*3/uL 0.00 - 0 .70 K/uL [facility] Eosinophils/100 WBC (Bld) 2.8 % 0.1 - 4.0 % [facility] Erythrocyte distribution width (RBC) [Ratio] 15.8 % High 11.5 - 14.5 % [facility] Hematocrit (Bld) [Volume fraction] 33.5 % Low 41.0 - 53.0 % [facility] Hemoglobin (Bld) [Mass/Vol] 11.6 g/dL Low 13.9 - 16.3 g/dL [facility] Interpretation and review of laboratory results Abnormal [facility] Lymphocytes (Bld) [#/Vol] 1.65 10*3/uL 1.00 - 4 .80 K/uL [facility] Lymphocytes/100 WBC (Bld) 28.9 % 24.0 - 44. 0 % [facility] MCH (RBC) [Entitic mass] 37.2 pg High 26.0 - 34.0 pg [facility] MCHC (RBC) [Mass/Vol] 34.5 g/dL 32.0 - 35.9 g/ dL [facility] MCV (RBC) [Entitic vol] 108 fL High 80 - 100 fL [facility] Monocyte distribution width Auto (Bld) [Entitic vol] [facility] Monocytes (Bld) [#/Vol] 0.76 10*3/uL 0.20 - 1.0 0 K/uL [facility] Monocytes/100 WBC (Bld) 13.3 % High 2.0 - 11.0 % [facility] Neutrophils (Bld) [#/Vol] 3.07 10*3/uL 1.50 - 8 .00 K/uL [facility] Neutrophils/100 WBC (Bld) 54.0 % 31.0 - 76. 0 % [facility] Platelet mean volume (Bld) [Entitic vol] 8.1 fL 7.5 - 11.2 fL [facility] Platelets (Bld) [#/Vol] 131 10*3/uL Low 150 - 400 K /uL [facility] RBC (Bld) [#/Vol] 3.11 10*6/uL Low [facility] WBC (Bld) [#/Vol] 5.7 10*3/uL 4.5 - 11.5 K/uL [facility] Basophils (Bld) [#/Vol] 0.06 10*3/uL Normal 0.00-0.20 The [facility] Comment on above: Performed By: #### C BCDSAT ####[facility] [address]OLV[address] [place] [address], #### HEMO DNA ####[facility] Hwbvnwvba[address] [place], [place] [id number] Basophils/100 WBC (Bld) 1.0 % Normal <=1.9 T [facility] Comment on above: Performed By: #### C BCDSAT ####[facility] XHOWGQVNIV[address] [place] [address], #### HEMO DNA ####[facility] Qwusvpysk[address] [place], [place] [id number] Eosinophils (Bld) [#/Vol] 0.16 10*3/uL Normal 0.00-0.7 0 [facility] Comment on above: Performed By: #### C BCDSAT ####[facility] KOU[address]HPLNS[address] [place] [address], #### HEMO DNA ####[facility] Cyhoopjuz[address] [place], [place] [id number] Eosinophils/100 WBC (Bld) 2.8 % Normal 0.1-4.0 [facility] Comment on above: Performed By: #### C BCDSAT ####[facility] [id number] [place] [address], #### HEMO DNA ####[facility] Vkwbsntrp[address] [place], [place] [id number] Erythrocyte distribution wid th (RBC) [Ratio] 15.8 % High 11.5-14.5 [facility] Comment on above: Performed By: #### C BCDSAT ####[facility] FUNNQBLZCM[address] [place] [address], #### HEMO DNA ####[facility] Gsqfrxboc[address] [place], [place] [id number] Hematocrit (Bld) [Volume fraction] 33.5 % Low 4 1.0-53.0 [facility] Comment on above: Performed By: #### C BCDSAT ####[facility] ADVETEWFBV[address] [place] [address], #### HEMO DNA ####[facility] Njocvmikv[address] [place], [place] [id number] Hemoglobin (Bld) [Mass/Vol] 11.6 g/dL Low 13.9-16. 3 [facility] Comment on above: Performed By: #### C BCDSAT ####[facility] [address] [place] [address], #### HEMO DNA ####[facility] Ogflosznq[address] [place], [place] [id number] Lymphocytes (Bld) [#/Vol] 1.65 10*3/uL Normal 1.00-4.8 0 [facility] Comment on above: Performed By: #### C BCDSAT ####[facility] GCRDEGOFLP[address] [place] [address], #### HEMO DNA ####[address] Lymphocytes/100 WBC (Bld) 28.9 % Normal 24.0-44.0 [facility] Comment on above: Performed By: #### C BCDSAT ####[facility] ZYGLKRIWHS[address] [place] [address], #### HEMO DNA ####[address] MCH (RBC) [Entitic mass] 37.2 pg High 26.0-34.0 [facility] Comment on above: Performed By: #### C BCDSAT ####[facility] LMNTYQTSRS[address] [place] [address], #### HEMO DNA ####[address] MCHC (RBC) [Mass/Vol] 34.5 g/dL Normal 32.0-35.9 [facility] Comment on above: Performed By: #### C BCDSAT ####[facility] IVYTCLXBPE[address] [place] [address], #### HEMO DNA ####[facility] Ldqreujbe[address] [place], [place] [id number] MCV (RBC) [Entitic vol] 108 fL High 80-100 T [facility] Comment on above: Performed By: #### C BCDSAT ####[facility] WOMIDZDJVY[address] [place] [address], #### HEMO DNA ####[facility] Jybgrqoke[address] [place], [place] [id number] MONOCYTE DISTRIBUTION WIDTH Normal [facility] Comment on above: Performed By: #### C BCDSAT ####[facility] QVZNDEEGIN[address] [place] [address], #### HEMO DNA ####[address] Monocytes (Bld) [#/Vol] 0.76 10*3/uL Normal 0.20-1.[address] [facility] Comment on above: Performed By: #### C BCDSAT ####[facility] GEERBJOEGO[address] [place] [address], #### HEMO DNA ####[facility] Jcmcesiyb[address] [place], [place] [id number] Monocytes/100 WBC (Bld) 13.3 % High 2.0-11.0 [facility] Comment on above: Performed By: #### C BCDSAT ####[facility] KLMPIZUNYS[address] [place] [address], #### HEMO DNA ####[facility] Hmwxqywzm[address] [place], [place] [id number] Neutrophils (Bld) [#/Vol] 3.07 10*3/uL Normal 1.50-8.[address] [facility] Comment on above: Performed By: #### C BCDSAT ####[facility] TFQGILVNXK[address] [place] [address], #### HEMO DNA ####[address] Neutrophils/100 WBC (Bld) 54.0 % Normal 31.0-76.0 [facility] Comment on above: Performed By: #### C BCDSAT ####[facility] UMOMLJFENU[address] [place] [address], #### HEMO DNA ####[facility] Grixbywht[address] [place], [place] [id number] Platelet mean volume (Bld) [ Entitic vol] 8.1 fL Normal 7.5-11.2 [facility] Comment on above: Performed By: #### C BCDSAT ####[facility] RPZCOKGCTV[address] [place] [address], #### HEMO DNA ####[facility] Qeqojvgbi[address] [place], [place] [id number] Platelets (Bld) [#/Vol] 131 10*3/uL Low 150-400 [facility] Comment on above: Performed By: #### C BCDSAT ####[facility] ADAGOHPKOO[address] [place] [address], #### HEMO DNA ####[facility] Histtpcsy[address] [place], [place] [id number] RBC (Bld) [#/Vol] 3.11 10*6/uL Low 4.50-5.90 The [facility] Comment on above: Performed By: #### C BCDSAT ####[facility] [address]YFSGJHYS[address] [place] [address], #### HEMO DNA ####[facility] Plcdaxwju[address] [place], [place] [id number] WBC (Bld) [#/Vol] 5.7 10*3/uL Normal 4.5-11.5 [facility] Comment on above: Performed By: #### C BCDSAT ####[facility] PAXOXAVCOJ[address] [place] [address], #### HEMO DNA ####[facility] [id number] [place], [place] [id number] FERRITINon 08-25-2022 DARRYN 346.0 ng/mL High 11.5-300.0 The [facility] Comment on above: Performed By: #### G ENTEST #### [facility] [address] [place] [address], [id number] HEMOCHROMATOSIS DNA TESTon 1 10-26-2021 HFE GENE MUTATION ANALYSIS See Below Normal The [facility] Comment on above: Order Comment: Kelly esparza Agency Address Site ID: [id number] Name: [employer], Address: [facility] [place] [address] Director: Ambika Lara MD,PhD,HÉCTOR Result Comment: DL LT: NEGATIVE Interpretation: DNA testing indicates that this individual is negative for the C282Y and H63D pathogenic variants in the HFE gene. This negative result significantly reduces the likelihood of hereditary hemochromatosis (HH) in this individual. However, it does not rule out the presence of other pathogenic variants within the HFE gene or a diagnosis of HH. The risk of this individual to carry an HFE pathogenic variant other than those tested in this assay depends greatly on family and clinical history as well as ethnicity. This assay does not test for other primary or secondary iron overload disorders. Laboratory testing supervised and results monitored by Paulette García, Ph.D., [facility], [facility]. DETAILED ASSAY INFORMATION: Hereditary hemochromatosis (HH) is an autosomal recessive disorder of iron metabolism that can result in iron overload and potential organ failure. It is one of the most common genetic disorders in individuals of - ancestry, with an estimated carrier frequency of 10%. HH is caused by pathogenic variants in the HFE gene. Most individuals with HH (60-90%) are homozygous for the C282Y pathogenic variant. A smaller percentage of affected individuals are either compound heterozygous for the C282Y and H63D pathogenic variants (3%-8%), or homozygous for the H63D pathogenic variant (approximately 1%). METHODOLOGY: This assay detects two pathogenic variants in the HFE gene, C282Y (NM 537417.2: c.845G>A, p.[id number]) and H63D (NM 366295.2: c.187C>G, p.[id number]), that are commonly associated with HH. These variants are detected by multiplex-polymerase chain reaction (PCR) amplification, followed by restriction enzyme digestion and capillary electrophoresis. LIMITATIONS: This assay does not detect other pathogenic variants in the HFE gene that may be associated with HH. Although rare, false positive or false negative results may occur. All results should be interpreted in the context of clinical findings, relevant history, and other laboratory data. Health care providers, please contact your local [employer] genetic counselor or call [phone] ( ) for assistance with the interpretation of these results. This test was developed and its analytical performance characteristics have been determined by [facility]. It has not been cleared or approved by FDA. This assay has been validated pursuant to the CLIA regulations and is used for clinical purposes. For more information, please refer to http://education.[employer]/faq/hemochromatosis. (This link is being provided for informational/educational purposes only.) Reviewed and signed by Laboratory testing supervised and results monitored by Paulette García, Ph.D., [facility], [facility], Signed on 09/05/2022 at 16:33 Performed By: #### C BCDSAT ####[facility] [id number] [place], [place], #### HEMO DNA ####[facility] [id number] [place], [place] HEPATIC FUNCTION PANELon Albumin [Mass/Vol] 3.0 g/dL Low 3.4-5.1 The [facility] Comment on above: Performed By: #### H EMO DNA #### [facility] [address] [facility] [place], [place] ALK 389 IU/L High 40-200 The [facility] Comment on above: Performed By: #### H EMO DNA #### [facility] [address] [facility] [place], [place] ALT [Catalytic activity/Vol] 56 U/L High 7-40 The [facility] Comment on above: Performed By: #### H EMO DNA #### [facility] [address] [facility] [place], [place] AST [Catalytic activity/Vol] 103 U/L High 7-40 The [facility] Comment on above: Performed By: #### [facility] #### [facility] [address] [facility] [address] [place], [place] Bilirubin [Mass/Vol] 7.7 mg/dL High 0.1-1.5 The [facility] Comment on above: Performed By: #### H EMO DNA #### [facility] [address] [facility] [address] [place], [place] Bilirubin.direct [Mass/Vol] 2.20 mg/dL High 0.10-0.3 0 The [facility] Comment on above: Performed By: #### [facility] #### [facility] [address] [facility] [address] [place], [place] Protein [Mass/Vol] 7.2 g/dL Normal 6.2-8.3 The [facility] Comment on above: Performed By: #### [facility] #### [facility] [address] [facility] [place], [place] IMMUNOGLOBULIN Eb IgG [Mass/Vol] 1995 mg/dL High 768-1632 The [facility] Comment on above: Performed By: #### G ENTEST #### S [facility] [address] [place] [address], IRON AND TIBCon 08-25-2022 % SAT CORRECT PRD 96 % High 20-55 The [facility] Comment on above: Performed By: #### G ENTEST #### S [facility] [address] [place] [address], FE CORRECT PRD 237 ug/dL High 45-160 The [facility] Comment on above: Performed By: #### G ENTEST #### S [facility] [address] [place] [address], TIBC CORRECT PRD 248 ug/mL Low 250-410 The [facility] Comment on above: Performed By: #### G ENTEST #### [facility] [address] [place] [address], TRANSFER CORRECT PRD 177 mg/dL Low 210-375 The [facility] Comment on above: Performed By: #### G ENTEST #### S [facility] [address] [place] [address], Laboratory - Chemistry and C hemistry - challengeon 08-25-2022 Ferritin [Mass/Vol] 346.0 ng/mL High 11.5 - 300.0 ng /mL [facility] Albumin [Mass/Vol] 3.0 g/dL Low 3.4 - 5.1 g/dL [facility] ALP [Catalytic activity/Vol] 389 U/L High [facility] ALT [Catalytic activity/Vol] 56 U/L High [facility] AST [Catalytic activity/Vol] 103 U/L High [facility] Bilirubin [Mass/Vol] 7.7 mg/dL High 0.1 - 1.5 mg/dL [facility] Bilirubin.direct [Mass/Vol] 2.20 mg/dL High 0.10 - 0 .30 mg/dL [facility] Iron [Mass/Vol] 237 ug/dL High 45 - 160 ug/dL [facility] Iron binding capacity [Mass/Vol] 248 ug/mL Low 250 - 410 ug/mL [facility] Iron saturation [Mass fraction] 96 % High 20 - 55 % [facility] Protein [Mass/Vol] 7.2 g/dL 6.2 - 8.3 g/dL [facility] Transferrin [Mass/Vol] 177 mg/dL Low 210 - 375 mg/ dL [facility] Laboratory - Serology - non- microon 08-25-2022 Immune complex.IgG [Mass/Vol] 1995 mg/dL High 768 - 1632 mg/dL [facility] MISCELLANEOUS SEND OUT TESTo n 08-25-2022 MISCELLANEOUS TEST RESULT See scanned report Normal [facility] Comment on above: Performed By: #### G ENTEST #### S [facility] [address] [place] [address], TEST NAME Phosphatidylethanol (PEth) Normal The [facility] Comment on above: Performed By: #### G ENTEST #### [facility] [address] [place] [address], No Panel Informationon 08-25 Interpretation and review of laboratory results Abnormal [facility] Interpretation and review of laboratory results Abnormal [facility] Interpretation and review of laboratory results Abnormal [facility] Patient Instructionson 08-25 Price Checker Authentication Interface Message Text Continue antibiotics for another 7 days Topical antibiotic ointment for left foot Follow up on Thursday Refilled zofran (anti-nausea medication) Normal [facility] Progress Noteson 08-25-2022 Price Checker Authentication Interface Message Text [facility] Medicine Family Medicine Office Visit CC: Chief Complaint Patient presents with Leg/thigh symptoms Swelling / red New patient, to establish relationship HPI: Patient is a 36 year old male with a history of alcoholic cirrhosis , autoimmune hemolytic anemia who presents for establish care, cellulitis. Follows with Hematology for AIHA (Dr. Jennie Black) Follows with Hepatology for EtOH cirrhosis (Dr. Haley Gary) Leg Swelling: - 08/14: RLE leg swelling with Liver Clinic. US DVT neg. Started on Macrobid for UTI by Heme/Onc - 08/15: express care for R lower leg swelling, concern for cellulitis and sent to ED for IV abx - 08/15: ED visit XR Knee No acute right knee fracture or dislocation. Diffuse subcutaneous edema of the right distal thigh and proximal leg, with focal swelling over the calcaneus anteriorly. Discharged on keflex - Started approximately 2 week ago after ran out of lactulose. Red, warm, painful. Unable to walk due to pain - Completed anbitioics, with good improvement - Reports night sweats and chills, improved - No known cuts or bruises - Gets atheletses foot frequently Feels 50% better Patient has signed up for MyChart: Yes Patient past medical, social, family, and surgical history personally reviewed and updated in [facility]. OBJECTIVE: BP 132/65 (BP Location: left arm, BP position: sitting, Cuff Size: large adult ) Pulse 69 Temp 98.5 ???F (36.9 ???C) (Temporal) Resp 18 Wt 171 lb (77.6 kg) SpO2 99% BMI 26.78 kg/m??? Gen: Appears well, no acute distress Resp: breathing comfortably, CTAB CV: DP and PT pulses symmetric and intact, appears well perfused Ext: right leg erythematous, no significant differenial warm. Bilateral pitting edema, R > L. Skin: circular rash on inner left ankle that is improved with topical antifungal, overlying crustin ASSESSMENT AND PLAN: 1. Right leg swelling 2. Cellulitis, unspecified cellulitis site 3. Nausea Orders AND Meds Signed During This Encounter cephALEXin (KEFLEX) 500 MG capsule mupirocin (BACTROBAN) 2 % ointment ondansetron (ZOFRAN-ODT) 4 MG disintegrating tablet Patient presenting to establish care and for followup of cellulitis. He feels 50% better after completing 7 days of keflex, able to walk and reduced redness and swelling. No more night sweats and chills. VSS in office. Patient is immunosuppressed, believe he will benefit from a prolonged course of antibiotics - extended to 14d. His ankle wound is concerning for tinea pedis with possible overlying bacterial infection, will start with topical mupirocin. Labs drawn this AM at liver clinic--will review. Gave strict return precautions. RTC Thursday as scheduled for wound check Theo Burks MD Family Medicine Normal [facility] Price Checker Authentication Interface Message Text Attestation signed by Haley Gary MD at 08/26/2022 9:27 AM Attending addendum: # Decompensated cirrhosis 2/2 ETOH - MELD was initially downtrending since sobriety, but now has increased (bilirubin) - he does have hemolytic anemia which explains large component of indirect bilirubinemia - will repeat MELD now - he defers addiction medicine referral, we explained that if he is to become transplant candidate, he will need structured ETOH program, he is aware but continues to defer - will see him in clinic in 1 month I saw and evaluated the patient. I personally obtained the critical portions of the history and physical exam. The case was discussed in detail with the fellow; including, but not limited to the chief complaint, HPI, past history, physical findings, labs and radiological findings. I agree with the fellow's medical decision making as documented in the fellow's note. The patient was counseled on the possible differential diagnoses and testing needed to arrive at a diagnosis or a treatment plan. Haley Gary MD Division of Gastroenterology AND Hepatology [facility] Department of Gastroenterology and Hepatology Hepatology New Clinic Visit GI Attending Physician: Dr. Haley Gary MD PCP: No primary care provider on file. 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 Admitted to [facility] ICU for acute alcoholic hepatitis (MDF 43) in 01/2022 after presenting to ED for jaundice and fatigue. Infection was ruled out and prednisolone was recommended but was stopped prematurely. Was also diagnosed with autoimmune hemolytic anemia and has been following with hematology for the same, has been started on cellcept and bactrim prophylaxis. Patient reports no confusion, tremors, melena, hematochezia. He does note jaundice that has persisted since 01/2022. He also notes occassional distension of his abdomen when his LE swelling gets worse. Edema fluctuates based on diet. Course has been c/b LE edema with recent concern for uncomplicated non-purulent cellulitis for which he is completing 7 of of Keflex 500 mg QID today. Since his illness in 01/2022 he has been trying to eat healthy, watch sodium intake and has completely quit alcohol. RUQ US with doppler does not show thrombosis or portal or splenic veins, but does show livernodularity concerning for cirrhosis. He reports no personal h/o cancer, no FH of liver disease or no prior DUIs. 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 He does not smoke cigarettes. He takes tylenol for pain and knows that he has to limit to 2g/day. He avoids NSAIDs. 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 All other systems were reviewed and negative. 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 (Patient not taking: Reported on 08/25/2022) 20 Tablet 0 lactulose 20 g/30 mL SOLN oral solution Take 30 mL by mouth 4 times daily as needed. Titrate 2-3 bowel movements/day 946 mL 3 ondansetron (ZOFRAN-ODT) 4 MG disintegrating tablet Take 1 Tablet by mouth every 12 hours as needed for Nausea. Place 1 tablet under tongue as needed for nausea. 30 Tablet 2 vitamin B-1 (THIAMINE) 100 MG tablet Take 1 Tablet by mouth daily. 90 Tablet 3 Multiple Vitamin (Multi-Vitamins) tablet Take 1 Tablet by mouth daily. 90 Tablet 3 folic acid 1 MG tablet Take 1 Tablet by mouth daily. 90 Tablet 3 mycophenolate (CELLCEPT) 500 MG tablet Take 1 Tablet by mouth 2 times daily. 120 Tablet 3 esomeprazole ( (more content not included)... Normal [facility] Price Checker Authentication Interface Message Text Patient was identified by name and date of . Maura Canela Patient at risk for falls:No Falls Risk protocol implemented: No Normal [facility] SMOOTH MUSC ATB SCRN AND TIT Friolan 08-25-2022 ANTI-SMA SCREEN Negative Normal Negative [facility] Comment on above: Order Comment: Kelly esparza Agency Address Site ID: EZ Name: [facility], Address: [address] [place] [id number] Director: Ambika Lara MD,PhD,HÉCTOR Performed By: #### H [facility] #### [facility] [address] [facility] [place], [place] [address] Addendum Noteon 08-21-2022 Price Checker Authentication Interface Message Text Addended by: TANVIR BLACK on: 08/21/2022 08:52 PM Modules accepted: Orders Normal [facility] US RUQ/LIVER DOPPLER (CHRISTIANO)on 08-21-2022 US RUQ/LIVER DOPPLER (CHRISTIANO) EXAMINATION: US RUQ/LIVER DOPPLER (CHRISTIANO)PRO/RT 08/21/2022 03:44 PM CLINICAL HISTORY: Reason for Exam: HCC screen ASSOCIATED DIAGNOSIS: Iron deficiency anemia, unspecified iron deficiency anemia type Alcoholic cirrhosis, unspecified whether ascites present (HCC) ORDERING PROVIDER: MARIA C FAUSTIN TECHNOLOGISTS NOTE: Difficult due to intercostal scanning, bowel gas, and poor penetration of liver. Liver- echogenic, nodular, ff seen, no definite focal lesions noted. Gb- neg galeano, innumerable mobile echogenic foci w/shadowing. Panc- subvis. Cbd-portion seen. Vessels imaged appeared in correct direction, patent umbilical vein noted. Ff seen around spleen. COMPARISON: 01/10/2022, correlation was also made with CT exam from 01/07/2022 TECHNIQUE: Ultrasound real time scan with image documentation of the right upper quadrant including the liver, gallbladder, and pancreas was performed. Color and spectral Doppler evaluation of the hepatic, splenic, portal veins, and the hepatic artery was performed. FINDINGS: Liver Craniocaudal length: 13.4 cm. Echogenicity: The liver has coarsened echotexture. Surface nodularity: Present Mass (size and location): None. Bile ducts Intrahepatic ducts: No biliary dilatation. Common bile duct: Normal caliber. Diameter 4 mm. Gallbladder Size and morphology: Normal caliber and wall thickness. Cholelithiasis: Multiple echogenic foci with posterior acoustic shadowing, compatible with gallstones. Pericholecystic fluid: None. Sonographic Galeano sign: Absent. Pancreas Suboptimally visualized. Spleen Spleen measures: 12.3 x 5 x 8.3 cm. Doppler Findings: Main portal vein: Normal venous inflow. Right portal vein: Normal venous inflow. Left portal vein: Normal venous inflow. Hepatic artery: Normal arterial inflow. Hepatic veins: Normal venous outflow. Splenic vein: Normal venous outflow. Splenic artery: Normal arterial inflow. Recanalized umbilical vein: Absent. Other findings Recannulized umbilical vein is noted. Trace upper abdominal ascites. IMPRESSION: Limited examination. Cirrhotic liver without a focal suspicious hepatic lesion, within the limitations of the exam. Patent and appropriately direction of flow of the imaged vasculature Trace to small volume upper abdominal ascites. Cholelithiasis MACRO: None Normal [facility] Progress Noteson 08-16-2022 Price Checker Authentication Interface Message Text Reviewed urine C AND S. Urine growing klebsiella pneumoniae, with intermediate sensitivity to Macrobid. Culture Positive Culture Report Abnormal >100,000 CFU/ml Klebsiella pneumoniae Resulting [place] [facility] [place]ibility Klebsiella pneumoniae BHAVIN Amoxicillin + Clavulanate 4 BHAVIN Sensitive Ampicillin + Sulbactam 8 BHAVIN Sensitive Cefazolin <=4 BHAVIN Sensitive Cefepime <=1 BHAVIN Sensitive Ceftazidime <=1 BHAVIN Sensitive Ceftriaxone <=1 BHAVIN Sensitive Ciprofloxacin <=0.25 BHAVIN Sensitive Ertapenem <=0.5 BHAVIN Sensitive Gentamicin <=1 BHAVIN Sensitive Nitrofurantoin 64 BHAVIN Intermediate Piperacillin + Tazobactam <=4 BHAVIN Sensitive Trimethoprim + Sulfamethoxazole >=320 BHAVIN Resistant Will change current antibiotic to Augmentin X10 days Sent to preferred pharmacy. Pt called and made aware Phone numbers Preferred Tanvir Black MD Pgr [phone] Hematology/Oncology 08/16/2022 . Normal [facility] ED Provider Noteson 08-15-20 Price Checker Authentication Interface Message Text Attestation signed by Ann-Marie Bray MD at 08/21/2022 1:55 PM ATTENDING NOTE I saw and evaluated the patient. I personally obtained the ferraro and critical portions of the history and physical exam. I reviewed the resident's documentation and discussed the patient with the resident. I agree with the resident's medical decision making as documented in the resident's note. 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 The history is provided by the Patient. Will Anderson is a 36 year old male presenting to the ED for R knee pain. Pain is constant since atraumatic onset 4 days ago, rated 7/10 in severity, and does not radiate elsewhere. Associated symptoms include swelling in the affected area. Patient denies fever, chills, SOB, chest pain, or orthopnea. 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 Patient was seen at oncology appointment yesterday with RLE US negative for DVT. [facility] and was advised to come to the ED with concern for cellulitis. He is not currently on antibiotics. Patient denies fever, chills, SOB, CP, orthopnea. Chart Review: - Hx hepatic cirrhosis and hepatic encephalopathy on lactulose. - Seen yesterday, 08/14/2022 with RLE US negative for DVT. - Prescribed Macrobid by Onc this morning. REVIEW OF SYSTEMS Review of Systems Constitutional: Negative for diaphoresis. HENT: Negative for dental problem, facial swelling and nosebleeds. Eyes: Negative for pain and visual disturbance. Respiratory: Negative for shortness of breath. Cardiovascular: Negative for chest pain. Gastrointestinal: Negative for abdominal pain. Genitourinary: Negative for flank pain. Musculoskeletal: Positive for joint swelling (R knee). Negative for arthralgias, back pain, myalgias and neck pain. (+) RLE pain Skin: Negative for wound. Neurological: Negative for syncope, weakness, numbness and headaches. Hematological: Does not bruise/bleed easily. Psychiatric/Behavioral: Negative for confusion. 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 Constitutional: Awake AND alert. No distress. Eyes: PERRL. EOMI. Cardiovascular: Regular rate. Regular rhythm. No murmurs, rubs, or gallops. Distal pulses are equal and 2+. Pulmonary/Chest: No evidence of respiratory distress. Clear to auscultation bilaterally. No wheezing, rales or rhonchi. Abdominal: Soft and non-distended. There is no tenderness. No rebound, guarding, or rigidity Musculoskeletal: Moves all extremities. No clubbing. No cyanosis. RLE with 2+ pitting edema to knee, tenderness to right patella Skin: Skin is warm and dry. No diaphoresis. No rashes. Neurological: Alert, awake, and appropriate. Normal speech. Normal sensation. Ambulates without assistance Psychiatric: Good eye contact. Appropriate in content/context. Normal affect. MEDICAL DECISION MAKING and ED COURSE Nursing triage and assessment notes reviewed and incorporated Evaluated by EM attending Ann-Marie Bray Interpretation of Results: please see below Course: ED Course as of 08/16/229 ThuAug 15, 2022 1354 BP: 147/70 [MS] 1354 Temperature: 98.5 ???F (36.9 ???C) [MS] 1354 Heart Rate: 94 [MS] 1354 Respiratory Rate: 18 [MS] 1354 SpO2: 100 % [MS] 1354 Vitals: normotensive, afebrile, not tachycardic, not hypoxic [MS] 1357 On chart review seen yesterday for similar. Had dvt us which was negative. Seen today at [facility] [MS] 1500 Has prescription for bactrim and nitrofurantoin at pharm (more content not included)... Normal The [employer] System Progress Noteson 08-15-2022 Price Checker Authentication Interface Message Text Chief Complaint Patient presents with Leg/thigh symptoms Right leg has a lot on fluids. HPI. 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 20 Capsule 0 lactulose 20 g/30 mL SOLN oral solution Take 30 mL by mouth 4 times daily as needed. Titrate 2-3 bowel movements/day 946 mL 3 clindamycin (CLEOCIN) 150 MG capsule Take by mouth. (Patient not taking: Reported on 08/14/2022) ondansetron (ZOFRAN-ODT) 4 MG disintegrating tablet Take 1 Tablet by mouth every 12 hours as needed for Nausea. Place 1 tablet under tongue as needed for nausea. 30 Tablet 2 vitamin B-1 (THIAMINE) 100 MG tablet Take 1 Tablet by mouth daily. 90 Tablet 3 Multiple Vitamin (Multi-Vitamins) tablet Take 1 Tablet by mouth daily. 90 Tablet 3 folic acid 1 MG tablet Take 1 Tablet by mouth daily. 90 Tablet 3 sulfamethoxazole-trimethoprim 800-160 MG (BACTRIM DS) 800-160 MG per tablet Take 1 tablet by mouth every Thursday, , and Thursday. 30 Tablet 5 mycophenolate (CELLCEPT) 500 MG tablet Take 1 Tablet by mouth 2 times daily. 120 Tablet 3 esomeprazole (NEXIUM) 40 MG capsule Take 1 Capsule by mouth daily (30 minutes before breakfast). (Patient not taking: Reported on 08/14/2022) 28 Capsule 1 No current facility-administered medications for this visit. 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 Social History Socioeconomic History Marital status: Single Tobacco Use Smoking status: Former Types: Cigarettes Smokeless tobacco: Current Types: Chew No family history on file. ROS: All systems negative except per HPI O: Blood pressure 136/56, pulse 85, temperature 98.6 ???F (37 ???C), temperature source Temporal, resp. rate 18, weight 170 lb 9.6 oz (77.4 kg), SpO2 100 %. PHYSICAL EXAMINATION: General appearance: healthy Lungs: Good breath sounds; no wheezes, rales or rhonchi. Heart: Regular rate and rhythm. Normal S1 and S2. No murmurs, clicks or gallops. Abdomen: Abdomen soft, non-tender. BS normal. No masses, No organomegaly Extremities: R Lower leg swelling with erythema and tenderness, good pulses Neuro: Intact and symmetric. Assessment and Plan: (L03.90) Cellulitis, unspecified cellulitis site (primary encounter diagnosis) Comment: Plan: Sent to ER for further evaluation Iv antibiotics see visit diagnoses, orders and follow up recommendations reviewed and updated medication list discussed probable diagnosis, test results if available in office today and management options with patient: agreed to a medical plan education provided regarding visit today, see after visit summary health maintenance with primary care provider. Follow up prn. If symptoms worsen or fail to improve please contact PCP as soon as possible or go directly to the emergency department. NENITA FRANCO MD Normal The [employer] Price Checker Authentication Interface Message Text Patient was identified by name and date of . Katie Paniagua Normal The [employer] System XR KNEE RT ANY 4 OR MORE VIE WSon 08-15-2022 XR KNEE RT ANY 4 OR MORE VIEWS EXAMINATION: XR KNEE RT ANY 4 OR MORE VIEWSPRO/RT 08/15/2022 02:28 PM CLINICAL HISTORY: Reason for Exam: knee pain, limited gait ASSOCIATED DIAGNOSIS: ORDERING PROVIDER: DANTE LYMAN NOTE: COMPARISON: None FINDINGS: No acute fracture or dislocation is identified. There is focal prominent swelling anteriorly over the calcaneus. Diffuse subcutaneous edema present in the distal thigh and proximal leg. The joint spaces are well-maintained. No joint effusion is seen. . There is no abnormal radiopaque foreign body. IMPRESSION: No acute right knee fracture or dislocation. Diffuse subcutaneous edema of the right distal thigh and proximal leg, with focal swelling over the calcaneus anteriorly. Right knee MACRO: None Normal The [employer] S ystem XR Knee - right Viewson EXAMINATION: XR KNEE RT ANY 4 OR MORE VIEWSPRO/RT 08/15/2022 02:28 PM CLINICAL HISTORY: Reason for Exam: knee pain, limited gait ASSOCIATED DIAGNOSIS: ORDERING PROVIDER: DANTE YLMAN NOTE: COMPARISON: None FINDINGS: No acute fracture or dislocation is identified. There is focal prominent swelling anteriorly over the calcaneus. Diffuse subcutaneous edema present in the distal thigh and proximal leg. The joint spaces are well-maintained. No joint effusion is seen. . There is no abnormal radiopaque foreign body. IMPRESSION: No acute right knee fracture or dislocation. Diffuse subcutaneous edema of the right distal thigh and proximal leg, with focal swelling over the calcaneus anteriorly. Right knee MACRO: None RADIOLOGY Colby Mcintosh MD - 08/15/2022 EXAMINATION: XR KNEE RT ANY 4 OR MORE VIEWSPRO/RT 08/15/2022 02:28 PM CLINICAL HISTORY: Reason for Exam: knee pain, limited gait ASSOCIATED DIAGNOSIS: ORDERING PROVIDER: DANTE MARCELINO TECHNOLOGISTS NOTE: COMPARISON: None FINDINGS: No acute fracture or dislocation is identified. There is focal prominent swelling anteriorly over the calcaneus. Diffuse subcutaneous edema present in the distal thigh and proximal leg. The joint spaces are well-maintained. No joint effusion is seen. . There is no abnormal radiopaque foreign body. IMPRESSION: No acute right knee fracture or dislocation. Diffuse subcutaneous edema of the right distal thigh and proximal leg, with focal swelling over the calcaneus anteriorly. Right knee MACRO: None [facility] Radiology Study observation (narrative) [employer] XR Knee - right ViewsOrdered By: Colby Mcintosh on 08-15-2022 [employer] Work Phone: BASIC METABOLIC PANELon 12-0 Anion gap [Moles/Vol] 14 mmol/L Normal 10-20 [facility] Comment on above: Performed By: #### C H8, URIC, HEPATIC, LD #### [facility] [address] [place] [address], Calcium [Mass/Vol] 7.9 mg/dL Low 8.4-10.4 The [facility] Comment on above: Performed By: #### C H8, URIC, HEPATIC, LD #### [facility] [address] [place] [address], Chloride [Moles/Vol] 97 mmol/L Normal 97-111 [facility] Comment on above: Performed By: #### C H8, URIC, HEPATIC, LD #### [facility] [address] [place] [address], CO2 [Moles/Vol] 24 mmol/L Normal 21-30 The [facility] Comment on above: Performed By: #### C H8, URIC, HEPATIC, LD #### [facility] [address] [place], [place], Creatinine [Mass/Vol] 0.55 mg/dL Low 0.80-1.30 [facility] Comment on above: Performed By: #### C H8, URIC, HEPATIC, LD #### [facility] [address] [place] [address], ESTIMATED GFR (CKD-EPI) 131 mL/min/1.73sqm Normal >=60 [facility] Comment on above: Result Comment: 2020 CKD EPI Equation using Creatinine without Race Comment: Estimated glomerular filtration rate (eGFR) is calculated without a race coefficient. Values should be interpreted in the context of the patient's full clinical presentation. Reference: 1. Fran Nicholson, Akhil M, Linden DC, et al.. A Unifying Approach for GFR Estimation: Recommendations of the NKF-ASN Task Force on Reassessing the Inclusion of Race in Diagnosing Kidney Disease. [place] Journal of Kidney Diseases 202;79(2):268-88.e1. 2. N Engl J Med 2020 Vol. 385 Issue 19 Pages [id number] Performed By: #### C H8, URIC, HEPATIC, LD #### [facility] [address] [place] [address], Glucose [Mass/Vol] 89 mg/dL Normal 68-110 [facility] Comment on above: Performed By: #### C H8, URIC, HEPATIC, LD #### [facility] [address] [place] [address], Potassium [Moles/Vol] 3.0 mmol/L Low 3.3-5.3 [facility] Comment on above: Performed By: #### C H8, URIC, HEPATIC, LD #### [facility] [address] [place] [address], Sodium [Moles/Vol] 132 mmol/L Low 135-148 [facility] Comment on above: Performed By: #### C H8, URIC, HEPATIC, LD #### [facility] [address] [place] [address], Urea nitrogen [Mass/Vol] 5 mg/dL Low 8-22 [facility] Comment on above: Performed By: #### C H8, URIC, HEPATIC, LD #### [facility] [address] [place] [address], Basic metabolic 2000 panelon 08-14-2022 Anion gap [Moles/Vol] 14 mmol/L 10 - 20 [facility] Calcium [Mass/Vol] 7.9 mg/dL Low 8.4 - 10.4 mg/dL [facility] Chloride [Moles/Vol] 97 mmol/L 97 - 111 mmol/L [facility] CO2 [Moles/Vol] 24 mmol/L 21 - 30 mmol/L [facility] Creatinine [Mass/Vol] 0.55 mg/dL Low 0.80 - 1.30 mg /dL [facility] GFR/1.73 sq M.predicted MDRD (S/P/Bld) [Vol rate/Area] 131 mL/min/{1.73_m2} - [facility] Comment on above: 2020 CKD EPI Equatio n using Creatinine without Race Comment: Estimated glomerular filtration rate (eGFR) is calculated without a race coefficient. Values should be interpreted in the context of the patient's full clinical presentation. Reference: 1. Fran C, Akhil M, Linden SAGASTUME, et al.. A Unifying Approach for GFR Estimation: Recommendations of the NKF-ASN Task Force on Reassessing the Inclusion of Race in Diagnosing Kidney Disease. [place] Journal of Kidney Diseases 2021;79(2):268-88.e1. 2. N Engl J Med 1 Vol. 385 Issue 19 Pages 3307-8589 Glucose [Mass/Vol] 89 mg/dL 68 - 110 mg/dL [facility] Potassium [Moles/Vol] 3.0 mmol/L Low 3.3 - 5.3 mmol /L [facility] Sodium [Moles/Vol] 132 mmol/L Low 135 - 148 mmol/L [facility] Urea nitrogen [Mass/Vol] 5 mg/dL Low 8 - 22 mg/d L [facility] CBC WITH DIFFERENTIALon 12-0 Erythrocyte distribution wid th (RBC) [Ratio] 14.8 % High 11.5-14.5 [facility] Comment on above: Performed By: #### C BC #### [facility] [address] [place], [place], Hematocrit (Bld) [Volume fraction] 31.8 % Low 4 1.0-53.0 The [employer] [facility] Comment on above: Performed By: #### C BC #### [facility] [address] [place], [place], Hemoglobin (Bld) [Mass/Vol] 11.6 g/dL Low 13.9-16. 3 The [facility] Comment on above: Performed By: #### C BC #### [facility] [address] [place] [address], MCH (RBC) [Entitic mass] 38.3 pg High 26.0-34.0 The [facility] Comment on above: Performed By: #### C BC #### [facility] [address] [place] [address], MCHC (RBC) [Mass/Vol] 36.5 g/dL High 32.0-35.9 The [facility] Comment on above: Performed By: #### C BC #### [facility] [address] [place] [address], MCV (RBC) [Entitic vol] 105 fL High 80-100 T [facility] Comment on above: Performed By: #### C BC #### [facility] [address] [place] [address], MONOCYTE DISTRIBUTION WIDTH Normal The [facility] Comment on above: Performed By: #### C BC #### [facility] [address] [place] [address], Nucleated RBC (Bld) [#/Vol] 0.01 10*3/uL Normal The [facility] Comment on above: Performed By: #### C BC #### [facility] [address] [place] [address], Platelet mean volume (Bld) [ Entitic vol] 8.4 fL Normal 7.5-11.2 The [facility] Comment on above: Performed By: #### C BC #### [facility] [address] [place] [address], Platelets (Bld) [#/Vol] 100 10*3/uL Low 150-400 The [facility] Comment on above: Performed By: #### C BC #### [facility] [address] [place] [address], RBC (Bld) [#/Vol] 3.03 10*6/uL Low 4.50-5.90 The [facility] Comment on above: Performed By: #### C BC #### [facility] [address] [place] [address], WBC (Bld) [#/Vol] 9.2 10*3/uL Normal 4.5-11.5 The [facility] Comment on above: Performed By: #### C BC #### [facility] [address] [place] [address], HAPTOGLOBINon 08-14-2022 HAPTOGLOBIN < 30 Low 36-220 The [facility] Comment on above: Performed By: #### G ENTEST #### [facility] [address] [place] [address], HEPATIC FUNCTION PANELon Albumin [Mass/Vol] 2.9 g/dL Low 3.4-5.1 The [facility] Comment on above: Performed By: #### C H8, URIC, HEPATIC, LD #### [facility] [address] [place] [address], ALK 245 IU/L High 40-200 The [facility] Comment on above: Performed By: #### C H8, URIC, HEPATIC, LD #### [facility] [address] [place] [address], ALT [Catalytic activity/Vol] 47 U/L High 7-40 The [facility] Comment on above: Performed By: #### C H8, URIC, HEPATIC, LD #### [facility] [address] [place] [address], AST [Catalytic activity/Vol] 96 U/L High 7-40 The [facility] Comment on above: Performed By: #### C H8, URIC, HEPATIC, LD #### [facility] [address] [place] [address], Bilirubin [Mass/Vol] 10.6 mg/dL High 0.1-1.5 The [facility] Comment on above: Result Comment: Elev ated bilirubin may falsely lower creatinine Performed By: #### C H8, URIC, HEPATIC, LD #### [facility] [address] [place] [address], Bilirubin.direct [Mass/Vol] 2.83 mg/dL High 0.10-0.3 0 The [facility] Comment on above: Performed By: #### C H8, URIC, HEPATIC, LD #### [facility] [address] [place] [address], Protein [Mass/Vol] 6.4 g/dL Normal 6.2-8.3 The [facility] Comment on above: Performed By: #### C H8, URIC, HEPATIC, LD #### [facility] [address] [place], [place], LDHon 08-14-2022 LD 260 IU/L High 50-220 [facility] Comment on above: Performed By: #### C H8, URIC, HEPATIC, LD #### [facility] [address] [place] [address], Laboratory - Chemistry and C hemistry - challengeon 08-14-2022 Urate [Mass/Vol] 1.9 mg/dL Low 2.0 - 7.3 mg/dL [facility] Albumin [Mass/Vol] 2.9 g/dL Low 3.4 - 5.1 g/dL [facility] ALP [Catalytic activity/Vol] 245 U/L High [facility] ALT [Catalytic activity/Vol] 47 U/L High [facility] AST [Catalytic activity/Vol] 96 U/L High [facility] Bilirubin [Mass/Vol] 10.6 mg/dL High 0.1 - 1.5 mg/dL [facility] Comment on above: Elevated bilirubin m ay falsely lower creatinine Bilirubin.direct [Mass/Vol] 2.83 mg/dL High 0.10 - 0 .30 mg/dL [facility] LDH [Catalytic activity/Vol] 260 U/L High [facility] Protein [Mass/Vol] 6.4 g/dL 6.2 - 8.3 g/dL [facility] Creatinine (U) [Mass/Vol] 57 mg/dL 10 - 300 m g/dL [facility] Protein/Creatinine (U) [Mass ratio] 123 mg/g NINF - 164 mg/g [facility] Bilirubin Ql (U) Positive Abnormal Negative [facility] Ketones Ql (U) Negative Negative mg/dL [facility] pH (U) 7.0 [pH] 5.0 - 8.0 [facility] Specific gravity (U) [Rel density] Low 1 .005 - 1.030 [facility] Urobilinogen Qn (U) >=8.0 Abnormal 0.2 - 1.0 mg/dL [facility] - Hematology and Cell countson 08-14-2022 Cells Counted Total (Bld) [#] 100 {cells} [facility] Eosinophils (Bld) [#/Vol] 0.09 10*3/uL 0.00 - 0 .70 K/uL [facility] Eosinophils/100 WBC (Bld) 1.0 % 0.1 - 4.0 % [facility] Lymphocytes (Bld) [#/Vol] 1.29 10*3/uL 1.00 - 4 .80 K/uL [facility] Lymphocytes/100 WBC (Bld) 14.0 % Low 24.0 - 44. 0 % [facility] Macrocytes Ql (Bld) Slight [facility] Monocytes (Bld) [#/Vol] 1.38 10*3/uL High 0.20 - 1.0 0 K/uL [facility] Monocytes/100 WBC (Bld) 15.0 % High 2.0 - 11.0 % [facility] Neutrophils (Bld) [#/Vol] 6.44 10*3/uL 1.50 - 8 .00 K/uL [facility] Neutrophils/100 WBC (Bld) 70.0 % 31.0 - 76. 0 % [facility] Haptoglobin [Mass/Vol] mg/dL Low 36 - 220 mg/d L [facility] Hemoglobin Ql (U) Negative Negative [facility] - Hematology and Cell countsOrdered By: Tayla Strickland on 08-14-2022 Erythrocyte distribution wid th (RBC) [Ratio] 14.8 % High 11.5 - 14.5 % [facility] Hematocrit (Bld) [Volume fraction] 31.8 % Low 4 1.0 - 53.0 % [facility] Hemoglobin (Bld) [Mass/Vol] 11.6 g/dL Low 13.9 - 1 6.3 g/dL [facility] MCH (RBC) [Entitic mass] 38.3 pg High 26.0 - 34.0 pg [facility] MCHC (RBC) [Mass/Vol] 36.5 g/dL High 32.0 - 35.9 g/ dL [facility] MCV (RBC) [Entitic vol] 105 fL High 80 - 100 fL [facility] Monocyte distribution width Auto (Bld) [Entitic vol] [facility] Nucleated RBC (Bld) [#/Vol] 0.01 10*3/uL [facility] Platelet mean volume (Bld) [ Entitic vol] 8.4 fL 7.5 - 11.2 fL [facility] Platelets (Bld) [#/Vol] 100 10*3/uL Low 150 - 400 K /uL [facility] RBC (Bld) [#/Vol] 3.03 10*6/uL Low [facility] WBC (Bld) [#/Vol] 9.2 10*3/uL 4.5 - 11.5 K/uL [facility] - Specimen inform ationon 08-14-2022 Appearance (U) Clear Clear [facility] Color (U) Light Yellow Yellow [facility] - Urinalysison Protein (U) [Mass/Vol] 7 mg/dL NINF - 100 mg /dL [facility] Bacteria LM.HPF (Urine sed) [#/Area] Few /HPF [facility] Glucose Auto test strip (U) [Mass/Vol] Negative Negative mg/dL [facility] Leukocyte esterase Test strip Ql (U) Moderate Abnormal Negative Svitlana/uL [facility] Nitrite Ql (U) Negative Negative [facility] Protein (U) [Mass/Vol] Negative Negative mg/d L [facility] WBC (U) [#/Vol] 0-2 [facility] WBC LM.HPF (Urine sed) [#/Area] 6-10 Abnormal [facility] MANUAL DIFF AND MORPHon 12-0 CELLS COUNTED TOTAL # IN BLOOD 100 Normal [facility] Comment on above: Performed By: #### C BC #### [facility] [address] [place] [address], EOSINOPHILS % BY MANUAL COUNT 1.0 % Normal 0.1-4. 0 [facility] Comment on above: Performed By: #### C BC #### [facility] [address] [place] [address], EOSINOPHILS ABS BY MANUAL COUNT 0.09 K/uL Normal 0.00 -0.70 The [facility] Comment on above: Performed By: #### C BC #### [facility] [address] [place], [place], LYMPHOCYTES % BY MANUAL COUNT 14.0 % Low 24.0-4 4.0 The [facility] Comment on above: Performed By: #### C BC #### [facility] [address] [place], [place], LYMPHOCYTES ABS BY MANUAL COUNT 1.29 K/uL Normal 1.00 -4.80 The [facility] Comment on above: Performed By: #### C BC #### [facility] [address] [place] [address], MACROCYTOSIS Slight Normal The [facility] Comment on above: Performed By: #### C BC #### [facility] [address] [place] [address], MONOCYTES % BY MANUAL COUNT 15.0 % High 2.0-11.0 The [facility] Comment on above: Performed By: #### C BC #### [facility] [address] [place] [address], MONOCYTES ABS BY MANUAL COUNT 1.38 K/uL High 0.20-1 .00 The [facility] Comment on above: Performed By: #### C BC #### [facility] [address] [place] [address], NEUTROPHILS % BY MANUAL COUNT 70.0 % Normal 31.0-7 6.0 The [facility] Comment on above: Performed By: #### C BC #### [facility] [address] [place] [address], NEUTROPHILS ABS BY MANUAL COUNT 6.44 K/uL Normal 1.50 -8.00 The [facility] Comment on above: Performed By: #### C BC #### [facility] [address] [place] [address], No Panel InformationOrdered By: Tayla Strickland on 08-14-2022 Interpretation and review of laboratory results Abnormal [facility] No Panel Informationon 08-14 Interpretation and review of laboratory results Abnormal [facility] Interpretation and review of laboratory results Abnormal [facility] Interpretation and review of laboratory results Normal [facility] Interpretation and review of laboratory results Abnormal [facility] A negative leukocyte esterase AND negative nitrite test or absence of pyuria (urine WBC count <= 5-10) make a UTI (urinary tract infection) very unlikely in a non-neutropenic adult (<=5% likelihood in many studies). A positive leukocyte esterase, nitrite and/or pyuria is a nonspecific result. This can be seen in conditions other than a UTI e.g. asymptomatic bacteriuria, gynecologic infections, sexually transmitted infections, and noninfectious conditions (positive predictive value for UTI around 50%) [facility] Patient Instructionson 08-14 Price Checker Authentication Interface Message Text -can take tylenol up 1/2 recommended daily dose (no more than 2000 mg per day) -no NSAIDs! -Limit salt (2000 mg/day) -take lactulose; can take several doses to achieve 2-3 bowel movements/day, if taking more than 5 doses without desired effect please let me know. Please call any one of these numbers to schedule your Upper Endoscopy. [facility] [id number] [place], [place] [id number] [facility] Thursday-Thursday 8A-4P [facility] [address] [place], [place] [id number] Thursday-Thursday 8A-4P [facility]. [address] [place], [place] [id number] Thursday-Thursday 8A-4P Centralized GI Procedure scheduling: UPPER ENDOSCOPY or EGD WHAT IS AN UPPER ENDOSCOPY? Upper endoscopy is a way to look a the inside of the esophagus(food-pipe), the stomach and the duodenum (the first part of the small intestine). A thin, bending tube with a light is used. The doctor looks through this tube. WHAT PREPARATION IS REQUIRED? YOUR STOMACH MUST BE EMPTY. Before the test you should have nothing to eat or drink after midnight. If your procedure is in the afternoon you may drink a small amount ( 6oz) of a clear liquid up to 4 hours before the test. CONTACT YOUR PRIMARY CARE PHYSICIAN FOR THE FOLLOWING: - Regarding any changes or what medication should be taken on the test day. - IF you are taking any BLOOD THINNER MEDICATIONS such as Coumadin, Heparin, Ticlid or Plavix, these may or may not be stopped before your test. - DIABETIC patients ask your doctor about diabetic medications for day before and day of the test. Please check your blood sugar before arriving for the test. WHAT SHOULD YOU EXPECT DURING THE TEST? Your throat may be numbed with a spray. Your doctor will give you a medication through a vein to make you feel relaxed. You may hear sounds around you; this is normal. It is important that you lay still and not talk during the test. You will lie on your left side for the test. The tube will be put into your mouth and then the doctor will ask you to swallow. This is not hard to do because the tube is small. You will have no trouble with breathing. A nurse will be present to assist you before, during, and after the test. WHAT HAPPENS AFTER THE ENDOSCOPY? After the test is done you will be moved to the recovery area of the Endoscopy unit. You will rest for one hour or until the effects of the medication have worn off. Your throat may feel sore for a couple of hours. You may feel a fullness in your stomach because of the air used during the test. If you are having an IV sedated procedure, plan that your stay will be 2 1/2- 3 hours. YOU MUST HAVE A RESPONSIBLE ADULT ACCOMPANY YOU HOME FROM THE ENDOSCOPY UNIT BECAUSE OF THE MEDICATION GIVEN. IF YOU HAVE AN AFTERNOON APPOINTMENT, WE EXPECT YOUR RESPONSIBLE ADULT TO REMAIN IN THE WAITING ROOM DURING YOUR PROCEDURE. YOUR PROCEDURE WILL BE RESCHEDULED IF YOU DO NOT HAVE A RESPONSIBLE ADULT A responsible adult should remain with you for the next 24 hours. If using [employer], cab or bus you must still have a responsible adult with you and remain with you for the next 24 hours. The hours of operation are 8:00am until 4:00pm. Please arrive at least 30 minutes before your appointment time. If your appointment is scheduled for 8:00 am please arrive 1 hr early (7:00 am). Please call M-F 7:00am-6:00pm for any pre-procedural questions. After hours, please call to speak to the [facility] nurse lead electrical controls engineer. If you need to cancel this appointment, please call , at least 48 hours before your appointment time. For additional health or procedure preparation information call the [facility] line at . The [facility] line is open 24 hours a day including weekends and holidays. PLEASE BRING IN YOUR INSURANCE CARD AND MEDICATIONS OR LIST OF CURRENT MEDICATIONS. PLEASE LEAVE JEWELRY AT HOME AND DO NOT WEAR HEAVY FRAGRANCE OR NAIL ARMENIAN WE MAKE EVERY ATTEMPT TO MAINTAIN OUR SCHEDULE; HOWEVER, IT IS NOT ALWAYS POSSIBLE. SOME PROCEDURES MAY TAKE LONGER THAN OTHERS AND OUR CASES ARE SCHEDULED TO FOLLOW ONE ANOTHER. WE APOLOGIZE FOR ANY DELAYS. Today the following vaccines were administered: Hepatitis B (Hep B). Vaccines may have different side effects and care recommendations. Please refer to the Vaccine Information Sheet(s) (VIS) provided in your preferred language to learn more about the vaccines that were administered today. If you have any problems or questions, please call the [facility] line at [phone]. Normal The [facility] Progress Noteson 08-14-2022 Price Checker Authentication Interface Message Text Hematology AND Oncology Clinic Note Reason for Consult: Hemolytic anemia Alcoholic cirrhosis Thrombocytopenia Long-term steroid use Referring Provider: Afua Umanzor MD Chief Complaint Patient presents with AIHA right leg swelling right leg erythema History of Present Illness Will Anderson is a 36 year old male with hx of excessive alcohol use with alcoholic liver cirrhosis, presented to ER in decompensated liver failure. 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 He was discharged home on 1 milligram/kilogram of prednisone which pt stopped prematurely. He was placed on MMF 1000mg BID. Pt non complaint due to side effect. Here for [facility], complaint of leg swelling And labs. Initial consult visit HPI Per patient, had a hard time with steroid at home. Was unable to sleep and kept him agitated almost all times. He decided to stop prednisone after 7 days And has been doing much better since then. Has not had any alcohol since discharge. To color a his skin and eyes is slowly coming back to normal. Interval visit 08/14/2022 he currently feels well overall. Complains of right ext swelling from groin down to foot. It is red and hot X 3 days. Denies trauma. Pain worse when standing, but when he lays down, pain is resolved. Still has some nausea and vomiting, about once a day after taking her cellcept.he is complaint with current therapy. Has been sleeping well while off steroid.continues to have swelling of legs which is worse at end of day. Denies CP, SOB, palpitations, dizziness or light-headedness. Denies having any changes in weight, appetite, or energy. No night sweats, fevers, chills, or new lumps. Eating and drinking well. Review of Systems Constitutional: Negative for chills, fever, malaise/fatigue and weight loss. HENT: Negative for congestion, hearing loss, sinus pain and tinnitus. Eyes: Negative for blurred vision and double vision. Jaundice Respiratory: Negative for cough, sputum production, shortness of breath and wheezing. Cardiovascular: Negative for chest pain, palpitations, orthopnea and leg swelling. Gastrointestinal: Negative for abdominal pain, blood in stool, constipation, diarrhea, heartburn, nausea and vomiting. Genitourinary: Negative for dysuria, frequency and urgency. Musculoskeletal: Negative for back pain, falls, joint pain and myalgias. Skin: Negative for rash. Neurological: Negative for dizziness, tingling, tremors, sensory change, focal weakness, seizures, weakness and headaches. Endo/Heme/Allergies: Does not bruise/bleed easily. Psychiatric/Behavioral: Negative for depression, substance abuse and suicidal ideas. The patient is not nervous/anxious and does not have insomnia. 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 SOCIAL HISTORY: Social History Socioeconomic History Marital status: Single Tobacco Use Smoking status: Former Types: Cigarettes Smokeless tobacco: Current Types: Chew CURRENT MEDICATIONS: Current Outpatient Medications Medication Sig Dispense Refill lactulose 20 g/30 mL SOLN oral solution Take 30 mL by mouth 4 times daily as needed. Titrate 2-3 bowel movements/day 946 mL 3 clindamycin (CLEOCIN) 150 MG capsule Take by mouth. (Patient not taking: Reported on 08/14/2022) ondansetron (ZOFRAN-ODT) 4 MG disintegrating tablet Take 1 Tablet by mouth every 12 hours as needed for Nausea. Place 1 tablet under tongue as needed for nausea. 30 Tablet 2 vitamin B-1 (THIAMINE) 100 MG tablet Take 1 Tablet by mouth daily. 90 Tablet 3 Multiple Vitamin (Multi-Vitamins) tablet Take 1 Tablet by mouth daily. 90 Tablet 3 folic acid 1 MG tablet Take 1 Tablet by mouth daily. 90 Tablet 3 sulfamethoxazole-trimethoprim 800-160 MG (BACTRIM DS) 800-160 MG per tablet Take 1 tablet by mouth every Thursday, , and Thursday. 30 Tablet 5 mycophenolate (CELLCEPT) 500 MG tablet Take 1 Tablet by mouth 2 times daily. 120 Tablet 3 esomeprazole (NEXIUM) 40 MG capsule Take 1 Capsule by mouth daily (30 minutes before breakfast). (Patient not taking: Reported on 08/14/2022) 28 Capsule 1 No current facility-administered medications for this encounter. ALLERGIES: Amoxacillin [amoxicillin] Objective Vitals: 08/14/22 1151 BP: 141/60 Pulse: 90 Resp: 14 Temp: 99.2 ???F (37.3 ???C) SpO2: 100% Physical Exam Constitutional: General: He is not in acute distress. HENT: Head: Normocephalic and atraumatic. Mouth/Throat: Pharynx: No oropharyngeal exudate. Eyes: General: No scleral icterus. Pupils: Pupils are equal, round, and reactive to light. Comments: Jaundiced Neck: Thyroid: No thyromegaly. Cardiovascular: Rate and (more content not included)... Normal The [facility] xoompark Authentication Interface Message Text During this visit the vaccine(s) was: Administered Obtained informed verbal consent from patient/parent/patient guest service representative for immunization(s) as ordered, questionnaire completed and VIS educational handouts reviewed with patient/parent/patient guest service representative who denies contraindications and verbalizes understanding of indication, potential side effect and actions to be taken if side effects occur. Double identification of patient completed withpatient/parent/patient guest service representative using name and prior to administration, and patient tolerated immunization(s) administration without incident. Normal The [facility] [employer] Authentication Interface Message Text Patient was identified by name and date of . Maura Foxtient at risk for falls:No Falls Risk protocol implemented: No Normal The [facility] [employer] Authentication Interface Message Text Patient was identified by name and date of . Jasmyne Grimaldo RN Patient at risk for falls:No Falls Risk protocol implemented: No Patient in for MD visit, lab draw, and urine test. Urine collected and sent to lab. Unable to draw blood after several attempts. Patient instructed to go to outpatient lab for blood work, stickers given to patient. Patient verbalized understanding of instructions and discharged from clinic. Jasmyne Grimaldo RN Normal The [facility] Price Checker Authentication Interface Message Text Department of Hepatology Patient name: Will Anderson : 1985 Date: 08/15/22 Referring Provider: Tanvir Black MD Subjective Chief Complaint: I had the pleasure of speaking with Will Anderson, for chief complaint of cirrhosis(see problem-based documentation below for details). A copy of today's note will be communicated to referring doctor via the electronic medical record or fax. Referring Provider: Tanvir Black MD History of Present Illness: Will Anderson is a 36 year old male who presents for management of decompensated etoh cirrhosis, c/b by HE and jaundice (tbili 8.3). Referring Provider: Tanvir Black MD. Patient is new to liver clinic. US with dopplers 01/2022 patent vessels, 01/2022 US liver no suspicious hepatic lesions. Last alcohol 01/05/2022, stopped after admitted for alcoholic liver disease related complications, he became encephalopathic due to alcohol withdrawal and hepatic encephalopathy, required precedex drip. Doing well with sobriety. HE treated with lactulose and rifaximin. He is no longer taking rifaximin (may not have been ordered after hospital d/c). Patient reports running out of lactulose, went several days without BM, experienced symptoms of chills, shaking, pain, also noticed foul smell in urine. Patient took laxative and had large BM, afterwards felt much better. PMHx significant for autoimmune hemolytic anemia, etoh abuse, and cirrhosis. Patient reports painful leg swelling in RLE, has US today to check for DVT. He is anxious and wants to do whatever he can to improve his health. There is no history of hematemesis, coffee ground emesis, hematochezia, jaundice, ascites or melena. FH: There is no history of liver cancer, cirrhosis or other liver related disease. No autoimmune. 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 Family History family history is not on file. Social History Social History Tobacco Use Smoking status: Former Types: Cigarettes Smokeless tobacco: Current Types: Chew Data Review All data reviewed and updated as appropriate Prior additional labs: Component 01/08/2022 HBsAg Non-Reactive Hep B Surface Ab <3.1 Hep B Core Ab Total Nonreactive Hepatitis C Ab Nonreactive Hepatitis C RNA Quant Not Detected Hep A Ab Total Reactive (A) Hep A Ab IgM Nonreactive CHILD-POTTS SCORE: B-9 Score: A= 5-6points B= 7-9points C= 10-15 points 1point 2points 3points Points Bilirubin(mg/dl) <2.0 2.0-3.0 >3.0 3 Albumin(g/dl) >/=3.5 2.8-3.4 <2.7 2 Protime(INR) /=2.5 2 Ascites none mild moderate 1 Encephalopathy none 1-2 3-4 1 Total 9 MELD-Na score: 27 at 01/17/2022 7:09 AM MELD score: 24 at 01/17/2022 7:09 AM Calculated from: Serum Creatinine: 0.42 mg/dL (Using min of 1 mg/dL) at 01/17/2022 7:09 AM Serum Sodium: 131 mmol/L at 01/17/2022 7:09 AM Total Bilirubin: 12.6 mg/dL at 01/17/2022 7:09 AM INR(ratio): 1.97 at 01/17/2022 6:18 AM Age: 36 years Prior liver imagin01/2022 US Liver/dopplers IMPRESSION: 1. The portal veins are patent and have normal direction of flow. 2. The hepatic veins are patent and have dampened spectral Doppler waveforms, probably secondary to cirrhosis. 3. Recanalized umbilical veins are well-seen on recent CT scan although are not demonstrated on this ultrasound. 4. Irregular hyperechoic liver probably representing combination of steatosis and cirrhosis. A formal liver parenchymal evaluation was not performed. 5. Perihepatic ascites, probably increased in volume from recent prior CT. 01/2022 US Liver: IMPRESSION: 1. Cirrhosis with severe hepatic steatosis. 2. Focal asymmetric gallbladder wall thickening most suggestive of adenomyosis. Gallbladder sludge. No pericholecystic fluid or sonographic Galeano's sign to suggest acute cholecystitis. 3. Normal size common bile duct measuring 5 mm. Mild intrahepatic biliary dilatation is noted. Prior endoscopies: Colonoscopy: EGD: Lab Review: CBC (last 3 years, up to 5 values) (Last 5 results in the past 3 years) WBC RBC Hgb Hct MCV RDW Plt 08/14/22 1203 9.2 3.03 11.6 31.8 105 14.8 100 05/06/22 1039 4.2 3.21 11.5 32.5 101 16.8 90 03/13/22 1159 4.0 2.81 9.9 28.4 101 16.2 114 02/11/22 1115 4.9 2.69 10.0 29.1 108 17.1 81 01/17/22 0618 9.5 2.09 8.0 23.3 111 23.6 96 Basic Metabolic Panel (Last 5 results in the past 3 years) Na K Cl CO2 Gap Glu BUN Cr Ca 08/14/22 1203 132 3.0 97 24 14 89 5 0.55 7.9 05/06/22 1039 137 3.6 105 25 11 79 3 0.58 Comment: Grossly icteric; may falsely decrease creatinine 8.9 03/13/22 1159 135 3.6 103 25 11 119 3 0.51 Comment: Grossly icteric; may falsely decrease creatinine 8.2 02/11/22 1115 134 3.3 103 24 10 105 7 0.49 Comment: Grossly icteric; may falsely decrease creatinine 8.2 01/17/22 0709 131 3.8 9 (more content not included)... Normal [facility] Price Checker Authentication Interface Message Text .Patient was identified by name and date of . Jojo Garcia .Patient at risk for falls:No Falls Risk protocol implemented: No Normal The [facility] TOTAL PROTEIN WITH CREATININ E, RANDOM URINEon 08-14-2022 CREATININE, URINE 57 mg/dL Normal 10-300 [facility] Comment on above: Performed By: #### G ENTEST #### [facility] [address] [place] [address], [id number] Protein (U) [Mass/Vol] 7 mg/dL Normal <=100 Th e [facility] Comment on above: Performed By: #### G ENTEST #### [facility] [address] [facility] [place], TP/CREAT RATIO 123 mg/g Normal <=164 The [facility] Comment on above: Performed By: #### G ENTEST #### [facility] [address] [place] [address], URIC ACIDon 08-14-2022 Urate [Mass/Vol] 1.9 mg/dL Low 2.0-7.3 [facility] Comment on above: Performed By: #### C H8, URIC, HEPATIC, LD #### [facility] [address] [place], [place], URINALYSIS WITH REFLEX CULTU RE PERFORMABLEon 08-14-2022 Glucose Ql (U) Negative Normal Negative [facility] Comment on above: Order Comment: A neg ative leukocyte esterase AND negative nitrite test or absence of pyuria (urine WBC count <= 5-10) make a UTI (urinary tract infection) very unlikely in a non- neutropenic adult (<=5% likelihood in many studies). A positive leukocyte esterase, nitrite and/or pyuria is a nonspecific result. This can be seen in conditions other than a UTI e.g. asymptomatic bacteriuria, gynecologic infections, sexually transmitted infections, and noninfectious conditions (positive predictive value for UTI around 50%) Performed By: #### C BC #### [facility] [address] [place], [place], U APPEAR Clear Normal Clear [facility] Comment on above: Order Comment: A neg ative leukocyte esterase AND negative nitrite test or absence of pyuria (urine WBC count <= 5-10) make a UTI (urinary tract infection) very unlikely in a non- neutropenic adult (<=5% likelihood in many studies). A positive leukocyte esterase, nitrite and/or pyuria is a nonspecific result. This can be seen in conditions other than a UTI e.g. asymptomatic bacteriuria, gynecologic infections, sexually transmitted infections, and noninfectious conditions (positive predictive value for UTI around 50%) Performed By: #### C BC #### [facility] [address] [place], [place], U BACTERIA Few Normal [facility] Comment on above: Order Comment: A neg ative leukocyte esterase AND negative nitrite test or absence of pyuria (urine WBC count <= 5-10) make a UTI (urinary tract infection) very unlikely in a non- neutropenic adult (<=5% likelihood in many studies). A positive leukocyte esterase, nitrite and/or pyuria is a nonspecific result. This can be seen in conditions other than a UTI e.g. asymptomatic bacteriuria, gynecologic infections, sexually transmitted infections, and noninfectious conditions (positive predictive value for UTI around 50%) Performed By: #### C BC #### [facility] [address] [place] [address], [place] BILI Positive Abnormal Negative The [facility] Comment on above: Order Comment: A neg ative leukocyte esterase AND negative nitrite test or absence of pyuria (urine WBC count <= 5-10) make a UTI (urinary tract infection) very unlikely in a non-neutropenic adult (<=5% likelihood in many studies). A positive leukocyte esterase, nitrite and/or pyuria is a nonspecific result. This can be seen in conditions other than a UTI e.g. asymptomatic bacteriuria, gynecologic infections, sexually transmitted infections, and noninfectious conditions (positive predictive value for UTI around 50%) Performed By: #### C BC #### [facility] [address] [place] [address], U BLOOD Negative Normal Negative [facility] Comment on above: Order Comment: A neg ative leukocyte esterase AND negative nitrite test or absence of pyuria (urine WBC count <= 5-10) make a UTI (urinary tract infection) very unlikely in a non- neutropenic adult (<=5% likelihood in many studies). A positive leukocyte esterase, nitrite and/or pyuria is a nonspecific result. This can be seen in conditions other than a UTI e.g. asymptomatic bacteriuria, gynecologic infections, sexually transmitted infections, and noninfectious conditions (positive predictive value for UTI around 50%) Performed By: #### C BC #### [facility] [address] [place] [address], U COLOR Light Yellow Normal Yellow The [facility] Comment on above: Order Comment: A neg ative leukocyte esterase AND negative nitrite test or absence of pyuria (urine WBC count <= 5-10) make a UTI (urinary tract infection) very unlikely in a non- neutropenic adult (<=5% likelihood in many studies). A positive leukocyte esterase, nitrite and/or pyuria is a nonspecific result. This can be seen in conditions other than a UTI e.g. asymptomatic bacteriuria, gynecologic infections, sexually transmitted infections, and noninfectious conditions (positive predictive value for UTI around 50%) Performed By: #### C BC #### [facility] [address] [place] [address], [place] KETONE Negative Normal Negative [facility] Comment on above: Order Comment: A neg ative leukocyte esterase AND negative nitrite test or absence of pyuria (urine WBC count <= 5-10) make a UTI (urinary tract infection) very unlikely in a non- neutropenic adult (<=5% likelihood in many studies). A positive leukocyte esterase, nitrite and/or pyuria is a nonspecific result. This can be seen in conditions other than a UTI e.g. asymptomatic bacteriuria, gynecologic infections, sexually transmitted infections, and noninfectious conditions (positive predictive value for UTI around 50%) Performed By: #### C BC #### [facility] [address] [place] [address], [place] LEUK Moderate Abnormal Negative [facility] Comment on above: Order Comment: A neg ative leukocyte esterase AND negative nitrite test or absence of pyuria (urine WBC count <= 5-10) make a UTI (urinary tract infection) very unlikely in a non-neutropenic adult (<=5% likelihood in many studies). A positive leukocyte esterase, nitrite and/or pyuria is a nonspecific result. This can be seen in conditions other than a UTI e.g. asymptomatic bacteriuria, gynecologic infections, sexually transmitted infections, and noninfectious conditions (positive predictive value for UTI around 50%) Performed By: #### C BC #### [facility] [address] [place] [address], [place] NITRITE Negative Normal Negative [facility] Comment on above: Order Comment: A neg ative leukocyte esterase AND negative nitrite test or absence of pyuria (urine WBC count <= 5-10) make a UTI (urinary tract infection) very unlikely in a non- neutropenic adult (<=5% likelihood in many studies). A positive leukocyte esterase, nitrite and/or pyuria is a nonspecific result. This can be seen in conditions other than a UTI e.g. asymptomatic bacteriuria, gynecologic infections, sexually transmitted infections, and noninfectious conditions (positive predictive value for UTI around 50%) Performed By: #### C BC #### [facility] [address] [place], [place], [place] PH 7.0 Normal 5.0-8.0 [facility] Comment on above: Order Comment: A neg ative leukocyte esterase AND negative nitrite test or absence of pyuria (urine WBC count <= 5-10) make a UTI (urinary tract infection) very unlikely in a non- neutropenic adult (<=5% likelihood in many studies). A positive leukocyte esterase, nitrite and/or pyuria is a nonspecific result. This can be seen in conditions other than a UTI e.g. asymptomatic bacteriuria, gynecologic infections, sexually transmitted infections, and noninfectious conditions (positive predictive value for UTI around 50%) Performed By: #### C BC #### [facility] [address] [place], [place], [place] PROTEIN Negative Normal Negative The [email or web address] [facility] Comment on above: Order Comment: A neg ative leukocyte esterase AND negative nitrite test or absence of pyuria (urine WBC count <= 5-10) make a UTI (urinary tract infection) very unlikely in a non- neutropenic adult (<=5% likelihood in many studies). A positive leukocyte esterase, nitrite and/or pyuria is a nonspecific result. This can be seen in conditions other than a UTI e.g. asymptomatic bacteriuria, gynecologic infections, sexually transmitted infections, and noninfectious conditions (positive predictive value for UTI around 50%) Performed By: #### C BC #### [facility] [address] [place], [place], [place] RBC 0-2 Normal 0-2 [facility] Comment on above: Order Comment: A neg ative leukocyte esterase AND negative nitrite test or absence of pyuria (urine WBC count <= 5-10) make a UTI (urinary tract infection) very unlikely in a non- neutropenic adult (<=5% likelihood in many studies). A positive leukocyte esterase, nitrite and/or pyuria is a nonspecific result. This can be seen in conditions other than a UTI e.g. asymptomatic bacteriuria, gynecologic infections, sexually transmitted infections, and noninfectious conditions (positive predictive value for UTI around 50%) Performed By: #### C BC #### [facility] [address] [place] [address], [place] SG < 1.005 Low 1.005-1.030 The [employer] [facility] Comment on above: Order Comment: A neg ative leukocyte esterase AND negative nitrite test or absence of pyuria (urine WBC count <= 5-10) make a UTI (urinary tract infection) very unlikely in a non- neutropenic adult (<=5% likelihood in many studies). A positive leukocyte esterase, nitrite and/or pyuria is a nonspecific result. This can be seen in conditions other than a UTI e.g. asymptomatic bacteriuria, gynecologic infections, sexually transmitted infections, and noninfectious conditions (positive predictive value for UTI around 50%) Performed By: #### C BC #### [facility] [address] [place] [address], U UROBILI >=8.0 Abnormal 0.2 - 1.0 [employer] Comment on above: Order Comment: A neg ative leukocyte esterase AND negative nitrite test or absence of pyuria (urine WBC count <= 5-10) make a UTI (urinary tract infection) very unlikely in a non-neutropenic adult (<=5% likelihood in many studies). A positive leukocyte esterase, nitrite and/or pyuria is a nonspecific result. This can be seen in conditions other than a UTI e.g. asymptomatic bacteriuria, gynecologic infections, sexually transmitted infections, and noninfectious conditions (positive predictive value for UTI around 50%) Performed By: #### C BC #### [facility] [address] [place], [place], U WBC 6-10 Abnormal 0-2 [employer] Comment on above: Order Comment: A neg ative leukocyte esterase AND negative nitrite test or absence of pyuria (urine WBC count <= 5-10) make a UTI (urinary tract infection) very unlikely in a non- neutropenic adult (<=5% likelihood in many studies). A positive leukocyte esterase, nitrite and/or pyuria is a nonspecific result. This can be seen in conditions other than a UTI e.g. asymptomatic bacteriuria, gynecologic infections, sexually transmitted infections, and noninfectious conditions (positive predictive value for UTI around 50%) Performed By: #### C BC #### S PATH[facility] [address] [place] [address], URINE CULTUREon 08-14-2022 Bacteria identified Cx Nom (U) C URINE: Positive Culture Report KLEBSIELLA PNEUMONIAE >100,000 CFU/ml Klebsiella pneumoniae Normal [facility] Comment on above: Performed By: #### C BC #### [facility] [address] [place] [address], BHAVIN ORGANISM: KLEBSIELLA PNEUMONIAE ANTIBIOTIC BHAVIN SENSITIVITY Amoxicillin + Clavulanate 4 S Ampicillin + Sulbactam 8 S Cefazolin <= 4 S Cefepime <= 1 S Ceftazidime <= 1 S Ceftriaxone <= 1 S Ciprofloxacin <= 0.25 S Ertapenem <= 0.5 S Gentamicin <= 1 S Nitrofurantoin 64 I Piperacillin + Tazobactam <= 4 S Trimethoprim + Sulfamethoxazole >= 320 R Normal [facility] Comment on above: Performed By: #### C BC #### [facility] [address] [place] [address], US LEG RIGHT VENOUS + DOPPLE Froilan 08-14-2022 US LEG RIGHT VENOUS + DOPPLER EXAMINATION: US LEG RIGHT VENOUS + DOPPLERPRO/RT 08/14/2022 04:14 PM CLINICAL HISTORY: Reason for Exam: 3+ edema in right leg from groin to toes ASSOCIATED DIAGNOSIS: Lower extremity edema ORDERING PROVIDER: TANVIR BLACK COMPARISON: None TECHNIQUE: Ultrasound real time scan with image documentation using a combination of pulsed Doppler, color Doppler, and compression B scale techniques, the deep venous system of the right lower extremity was studied from the external iliac through to and including the popliteal and calf veins. FINDINGS: VESSELS: External Iliac vein: Compressible with appropriate direction of flow, a normal waveform, and intact color Doppler flow. Common femoral vein: Compressible with appropriate direction of flow, a normal waveform, and intact color Doppler flow. Contralateral common femoral vein: Appropriate direction of flow, a normal waveform, and intact color Doppler flow. Proximal aspect of greater saphenous vein: Compressible with appropriate direction of flow, a normal waveform, and intact color Doppler flow. Femoral vein: Compressible with appropriate direction of flow, a normal waveform, and intact color Doppler flow. Deep femoral vein: Compressible with appropriate direction of flow, a normal waveform, and intact color Doppler flow. Popliteal vein: Compressible with appropriate direction of flow, a normal waveform, and intact color Doppler flow. Calf veins: Included veins are compressible with appropriate direction of flow and intact color Doppler flow. Soft tissue edema is present in the calf. IMPRESSION: No right lower extremity deep venous thrombosis identified. MACRO: None Normal The [employer] US.doppler Lower extremity v ein - righton 08-14-2022 EXAMINATION: US LEG RIGHT VENOUS + DOPPLERPRO/RT 08/14/2022 04:14 PM CLINICAL HISTORY: Reason for Exam: 3+ edema in right leg from groin to toes ASSOCIATED DIAGNOSIS: Lower extremity edema ORDERING PROVIDER: TANVIR BLACK COMPARISON: None TECHNIQUE: Ultrasound real time scan with image documentation using a combination of pulsed Doppler, color Doppler, and compression B scale techniques, the deep venous system of the right lower extremity was studied from the external iliac through to and including the popliteal and calf veins. FINDINGS: VESSELS: External Iliac vein: Compressible with appropriate direction of flow, a normal waveform, and intact color Doppler flow. Common femoral vein: Compressible with appropriate direction of flow, a normal waveform, and intact color Doppler flow. Contralateral common femoral vein: Appropriate direction of flow, a normal waveform, and intact color Doppler flow. Proximal aspect of greater saphenous vein: Compressible with appropriate direction of flow, a normal waveform, and intact color Doppler flow. Femoral vein: Compressible with appropriate direction of flow, a normal waveform, and intact color Doppler flow. Deep femoral vein: Compressible with appropriate direction of flow, a normal waveform, and intact color Doppler flow. Popliteal vein: Compressible with appropriate direction of flow, a normal waveform, and intact color Doppler flow. Calf veins: Included veins are compressible with appropriate direction of flow and intact color Doppler flow. Soft tissue edema is present in the calf. IMPRESSION: No right lower extremity deep venous thrombosis identified. MACRO: None RADIOLOGY Enrique Basurto MD - 08/14/2022 EXAMINATION: US LEG RIGHT VENOUS + DOPPLERPRO/RT 08/14/2022 04:14 PM CLINICAL HISTORY: Reason for Exam: 3+ edema in right leg from groin to toes ASSOCIATED DIAGNOSIS: Lower extremity edema ORDERING PROVIDER: TANVIR BLACK COMPARISON: None TECHNIQUE: Ultrasound real time scan with image documentation using a combination of pulsed Doppler, color Doppler, and compression B scale techniques, the deep venous system of the right lower extremity was studied from the external iliac through to and including the popliteal and calf veins. FINDINGS: VESSELS: External Iliac vein: Compressible with appropriate direction of flow, a normal waveform, and intact color Doppler flow. Common femoral vein: Compressible with appropriate direction of flow, a normal waveform, and intact color Doppler flow. Contralateral common femoral vein: Appropriate direction of flow, a normal waveform, and intact color Doppler flow. Proximal aspect of greater saphenous vein: Compressible with appropriate direction of flow, a normal waveform, and intact color Doppler flow. Femoral vein: Compressible with appropriate direction of flow, a normal waveform, and intact color Doppler flow. Deep femoral vein: Compressible with appropriate direction of flow, a normal waveform, and intact color Doppler flow. Popliteal vein: Compressible with appropriate direction of flow, a normal waveform, and intact color Doppler flow. Calf veins: Included veins are compressible with appropriate direction of flow and intact color Doppler flow. Soft tissue edema is present in the calf. IMPRESSION: No right lower extremity deep venous thrombosis identified. MACRO: None [facility] Radiology Study observation (narrative) [facility] US.doppler Lower extremity v ein - rightOrdered By: Enrique Basurto on 08-14-2022 [facility] Work Phone: Basic metabolic 2000 panelon 05-06-2022 Anion gap [Moles/Vol] 11 mmol/L 10 - 20 [facility] Calcium [Mass/Vol] 8.9 mg/dL 8.4 - 10.4 mg/dL [facility] Chloride [Moles/Vol] 105 mmol/L 97 - 111 mmol/L [facility] CO2 [Moles/Vol] 25 mmol/L 21 - 30 mmol/L [facility] Creatinine [Mass/Vol] 0.58 mg/dL Low 0.8 - 1.3 mg/d L [facility] Comment on above: Grossly icteric; may falsely decrease creatinine GFR/1.73 sq M.predicted MDRD (S/P/Bld) [Vol rate/Area] 129 mL/min/{1.73_m2} - PINF [facility] Comment on above: 2020 CKD EPI Equatio n using Creatinine without Race Comment: Estimated glomerular filtration rate (eGFR) is calculated without a race coefficient. Values should be interpreted in the context of the patient's full clinical presentation. Reference: 1. Fran C, Akhil M, Linden DC, et al.. A Unifying Approach for GFR Estimation: Recommendations of the NKF-ASN Task Force on Reassessing the Inclusion of Race in Diagnosing Kidney Disease. [place] Journal of Kidney Diseases 202;79(2):268- 88.e1. 2. N Engl J Med 1 Vol. 385 Issue 19 Pages 7153-9249 Glucose [Mass/Vol] 79 mg/dL 68 - 110 mg/dL [facility] Interpretation and review of laboratory results Abnormal [facility] Potassium [Moles/Vol] 3.6 mmol/L 3.3 - 5.3 mmol /L [facility] Sodium [Moles/Vol] 137 mmol/L 135 - 148 mmol/L [facility] Urea nitrogen [Mass/Vol] 3 mg/dL Low 8 - 22 mg/d L [facility] CBC WITH DIFFERENTIALOrdered By: Isak Mitchell on 05-06-2022 Basophils (Bld) [#/Vol] 0.04 10*3/uL 0 - 0.2 K/ uL [facility] Basophils/100 WBC (Bld) 0.9 % NINF - 1.9 % [facility] Eosinophils (Bld) [#/Vol] 0.12 10*3/uL 0 - 0.7 K/uL [facility] Eosinophils/100 WBC (Bld) 2.8 % 0.1 - 4 % [facility] Erythrocyte distribution wid th (RBC) [Ratio] 16.8 % High 11.5 - 14.5 % [facility] Hematocrit (Bld) [Volume fraction] 32.5 % Low 4 1 - 53 % [facility] Hemoglobin (Bld) [Mass/Vol] 11.5 g/dL Low 13.9 - 1 6.3 g/dL [facility] Interpretation and review of laboratory results Abnormal [facility] Lymphocytes (Bld) [#/Vol] 1.14 10*3/uL 1 - 4.8 K/uL [facility] Lymphocytes/100 WBC (Bld) 27.1 % 24 - 44 % [facility] MCH (RBC) [Entitic mass] 35.6 pg High 26 - 34 pg [facility] MCHC (RBC) [Mass/Vol] 35.2 g/dL 32 - 35.9 g/dL [facility] MCV (RBC) [Entitic vol] 101 fL High 80 - 100 fL [facility] Monocyte distribution width Auto (Bld) [Entitic vol] [facility] Monocytes (Bld) [#/Vol] 0.69 10*3/uL 0.2 - 1 K/ uL [facility] Monocytes/100 WBC (Bld) 16.4 % High 2 - 11 % [facility] Neutrophils (Bld) [#/Vol] 2.21 10*3/uL 1.5 - 8 K/uL [facility] Neutrophils/100 WBC (Bld) 52.8 % 31 - 76 % [facility] Platelet mean volume (Bld) [ Entitic vol] 7.9 fL 7.5 - 11.2 fL [facility] Platelets (Bld) [#/Vol] 90 10*3/uL Low 150 - 400 K/ uL [facility] RBC (Bld) [#/Vol] 3.21 10*6/uL Low [facility] WBC (Bld) [#/Vol] 4.2 10*3/uL Low 4.5 - 11.5 K/uL [facility] HAPTOGLOBINon 05-06-2022 Haptoglobin [Mass/Vol] mg/dL Low 36 - 220 mg/d L [facility] Interpretation and review of laboratory results Ab[facility] HEPATIC FUNCTION PANELon Albumin [Mass/Vol] 3.0 g/dL Low 3.4 - 5.1 g/dL [facility] ALP [Catalytic activity/Vol] 373 U/L High [facility] ALT [Catalytic activity/Vol] 47 U/L High [facility] AST [Catalytic activity/Vol] 87 U/L High [facility] Bilirubin [Mass/Vol] 8.3 mg/dL High 0.1 - 1.5 mg/dL [facility] Bilirubin.direct [Mass/Vol] 1.50 mg/dL High 0.1 - 0. 3 mg/dL [facility] Protein [Mass/Vol] 6.7 g/dL 6.2 - 8.3 g/dL [facility] LDHon 05-06-2022 LDH [Catalytic activity/Vol] 270 U/L High [facility] No Panel Informationon 05-06 Interpretation and review of laboratory results Abnormal [facility] URIC ACIDon 05-06-2022 Interpretation and review of laboratory results Normal [facility] Urate [Mass/Vol] 3.2 mg/dL 2 - 7.3 mg/dL [facility] Basic metabolic 2000 panelon 03-13-2022 Anion gap [Moles/Vol] 11 mmol/L [facility] Calcium [Mass/Vol] 8.2 mg/dL Low 8.4 - 10.4 mg/dL [facility] Chloride [Moles/Vol] 103 mmol/L 97 - 111 mmol/L [facility] CO2 [Moles/Vol] 25 mmol/L 21 - 30 mmol/L [facility] Creatinine [Mass/Vol] 0.51 mg/dL Low 0.80 - 1.30 mg /dL [facility] Comment on above: Grossly icteric; may falsely decrease creatinine GFR/1.73 sq M.predicted MDRD (S/P/Bld) [Vol rate/Area] 134 mL/min/{1.73_m2} >=60 mL/min/1.73s qm [facility] Comment on above: 2020 CKD EPI Equatio n using Creatinine without Race Comment: Estimated glomerular filtration rate (eGFR) is calculated without a race coefficient. Values should be interpreted in the context of the patient's full clinical presentation. Reference: 1. Fran C, Akhil M, Linden DC, et al.. A Unifying Approach for GFR Estimation: Recommendations of the NKF-ASN Task Force on Reassessing the Inclusion of Race in Diagnosing Kidney Disease. [place] Journal of Kidney Diseases 202;79(2):268-88.e1. 2. N Engl J Med 1 Vol. 385 Issue 19 Pages 2026-0103 Glucose [Mass/Vol] 119 mg/dL High 68 - 110 mg/dL [facility] Interpretation and review of laboratory results Abnormal [facility] Potassium [Moles/Vol] 3.6 mmol/L 3.3 - 5.3 mmol /L [facility] Sodium [Moles/Vol] 135 mmol/L 135 - 148 mmol/L [facility] Urea nitrogen [Mass/Vol] 3 mg/dL Low 8 - 22 mg/d L [facility] CBC WITH DIFFERENTIALon Basophils (Bld) [#/Vol] 0.03 10*3/uL 0.00 - 0.2 0 K/uL [facility] Basophils/100 WBC (Bld) 0.8 % <=1.9 [facility] Eosinophils (Bld) [#/Vol] 0.20 10*3/uL 0.00 - 0 .70 K/uL [facility] Eosinophils/100 WBC (Bld) 5.1 % High 0.1 - 4.0 % [facility] Erythrocyte distribution wid th (RBC) [Ratio] 16.2 % High 11.5 - 14.5 % [facility] Hematocrit (Bld) [Volume fraction] 28.4 % Low 4 1.0 - 53.0 % [facility] Hemoglobin (Bld) [Mass/Vol] 9.9 g/dL Low 13.9 - 1 6.3 g/dL [facility] Interpretation and review of laboratory results Abnormal [facility] Lymphocytes (Bld) [#/Vol] 1.56 10*3/uL 1.00 - 4 .80 K/uL [facility] Lymphocytes/100 WBC (Bld) 39.3 % 24.0 - 44. 0 % [facility] MCH (RBC) [Entitic mass] 35.4 pg High 26.0 - 34.0 pg [facility] MCHC (RBC) [Mass/Vol] 35.0 g/dL 32.0 - 35.9 g/ dL [facility] MCV (RBC) [Entitic vol] 101 fL High 80 - 100 fL [facility] Monocyte distribution width Auto (Bld) [Entitic vol] [facility] Monocytes (Bld) [#/Vol] 0.82 10*3/uL 0.20 - 1.0 0 K/uL [facility] Monocytes/100 WBC (Bld) 20.6 % High 2.0 - 11.0 % [facility] Neutrophils (Bld) [#/Vol] 1.35 10*3/uL Low 1.50 - 8 .00 K/uL [facility] Neutrophils/100 WBC (Bld) 34.2 % 31.0 - 76. 0 % [facility] Platelet mean volume (Bld) [ Entitic vol] 7.3 fL Low 7.5 - 11.2 fL [facility] Platelets (Bld) [#/Vol] 114 10*3/uL Low 150 - 400 K /uL [facility] RBC (Bld) [#/Vol] 2.81 10*6/uL Low [facility] WBC (Bld) [#/Vol] 4.0 10*3/uL Low 4.5 - 11.5 K/uL [facility] hem[facility] - challengeon 03-13-2022 Albumin [Mass/Vol] 2.6 g/dL Low 3.4 - 5.1 g/dL [facility] ALP [Catalytic activity/Vol] 278 U/L High [facility] ALT [Catalytic activity/Vol] 33 U/L [facility] AST [Catalytic activity/Vol] 68 U/L High [facility] Bilirubin [Mass/Vol] 5.6 mg/dL High 0.1 - 1.5 mg/dL [facility] Bilirubin.direct [Mass/Vol] 1.20 mg/dL High 0.10 - 0 .30 mg/dL [facility] LDH [Catalytic activity/Vol] 258 U/L High [facility] Protein [Mass/Vol] 6.2 g/dL 6.2 - 8.3 g/dL [facility] Urate [Mass/Vol] 3.0 mg/dL 2.0 - 7.3 mg/dL [facility] Laboratory - Hematology and Cell countson 03-13-2022 Haptoglobin [Mass/Vol] mg/dL Low 36 - 220 mg/d L [facility] No Panel Informationon 03-13 Interpretation and review of laboratory results Abnormal [facility] Interpretation and review of laboratory results Abnormal [facility] Interpretation and review of laboratory results Normal [facility] CHEMISTRYOrdered By: SYSTEM SYSTEM on 02-17-2022 Lactate [Mass/Vol] 1.8 mmol/L Normal 0.5 - 2.2 mmol/L [facility] Remisol Albumin [Mass/Vol] 2.8 g/dL Low 3.3 - 5.0 gm/dL [facility] Remisol Albumin/Globulin [Mass ratio] 0.7 {ratio} Low 1.1 - 2.2 [facility] Remisol ALP [Catalytic activity/Vol] 265 [iU]/d High 21 - 98 Int._Unit/L [facility] Remisol ALT No additional P-5'-P [Catalytic activity/Vol] 60 [iU]/d High 6 - 46 Int._Unit/L [facility] Remisol Anion gap [Moles/Vol] 12 mmol/L Normal 6 - 16 mEq/L [facility] AST [Catalytic activity/Vol] 93 [iU]/d High 5 - 43 Int._Unit/L [facility]isol Bilirubin [Mass/Vol] 6.2 mg/dL High 0.0 - 1.1 mg/dL [facility]isol Bilirubin.direct [Mass/Vol] 1.6 mg/dL High 0.1 - 0. 4 mg/dL [facility] Bilirubin.indirect [Mass or moles/Vol] 4.6 mg/dL High 0.1 - 0.9 mg/dL [facility] Calcium [Mass/Vol] 8.0 mg/dL Low 8.9 - 11.1 mg/dL [facility] Chloride [Moles/Vol] 102 mmol/L Normal 101 - 111 mmol/ L [facility] CO2 [Moles/Vol] 22 mmol/L Normal 21 - 31 mmol/L [facility] Creatinine [Mass/Vol] 0.5 mg/dL Normal 0.5 - 1.3 mg/d L [facility] Remisol GFR/1.73 sq M.predicted devora g blacks MDRD (S/P/Bld) [Vol rate/Area] mL/min/1.73 m2 Normal >=59mL/min/1.73 m2 FT Chem S GFR/1.73 sq M.predicted devora g non-blacks MDRD (S/P/Bld) [Vol rate/Area] mL/min/1.73 m2 Normal >=59mL/min/1.73 m2 [facility] [place] S Globulin (S) [Mass/Vol] 3.9 g/dL Normal 1.4 - 4.0 gm /dL [facility] Glucose [Mass/Vol] 123 mg/dL Normal 55 - 199 mg/dL [facility] Lipase [Catalytic activity/Vol] 68 U/L High 13 - 58 unit/L [facility] Potassium [Moles/Vol] 3.2 mmol/L Low 3.5 - 5.3 mmol /L [facility] Protein [Mass/Vol] 6.7 g/dL Normal 6.0 - 7.8 gm/dL [place] [facility] [place] Sodium [Moles/Vol] 133 mmol/L Low 135 - 145 mmol/L [facility] Urea nitrogen [Mass/Vol] 6 mg/dL Normal 5 - 21 mg/d L [facility] Urea nitrogen/Creatinine [Ma ss ratio] 12 mg/mg Normal 10 - 20 [facility] CHEMISTRYOrdered By: Trista Root on 02-17-2022 Natriuretic peptide B (Bld) [Mass/Vol] 142 pg/mL High 5 - 80 pg/mL [facility] [place] [facility] HEMATOLOGYOrdered By: SYSTEM SYSTEM on 02-17-2022 Basophils/100 WBC (Bld) 0.9 % Normal 0.0 - 2.0 % [facility] Basophils/Leukocytes Auto (B ld) [Pure # fraction] 0.0 E9/L Normal 0.0 - 0.2 E9/L [facility] Eosinophils/100 WBC (Bld) 2.9 % Normal 0.0 - 8.0 % [facility] Eosinophils/Leukocytes Auto (Bld) [Pure # fraction] 0.1 E9/L Normal 0.0 - 0.5 E9/L [facility] S Lymphocytes/100 WBC (Bld) 30.1 % Normal 14.0 - 50. 0 % [facility] Lymphocytes/Leukocytes Auto (Bld) [Pure # fraction] 1.5 E9/L Normal 1.0 - 4.0 E9/L [facility] S Monocytes/100 WBC (Bld) 12.8 % Normal 4.0 - 14.0 % [facility] Monocytes/Leukocytes Auto (B ld) [Pure # fraction] 0.6 E9/L Normal 0.2 - 1.0 E9/L [facility] Neutrophils/100 WBC (Bld) 53.3 % Normal 36.0 - 75. 0 % [facility] Neutrophils/Leukocytes Auto (Bld) [Pure # fraction] 2.6 E9/L Normal 2.0 - 7.5 E9/L FT [facility] S HEMATOLOGYOrdered By: Angie Childers on 02-17-2022 Erythrocyte distribution wid th (RBC) [Ratio] 17.1 % High 10.9 - 14.2 % [facility] Hematocrit (Bld) [Volume fraction] 29.1 % Low 37.7 - 49.0 % [facility] Hemoglobin (Bld) [Mass/Vol] 10.4 g/dL Low 13.5 - 1 7.5 gm/dL [facility] MCH (RBC) [Entitic mass] 37.8 pg High 27.0 - 34.0 pg [facility] MCHC (RBC) [Mass/Vol] 35.7 g/dL Normal 31.4 - 36.0 gm /dL [facility] MCV (RBC) [Entitic vol] 105.8 fL High 80.0 - 100.0 fL [facility] Platelet mean volume (Bld) [Entitic vol] 7.3 fL Normal 6.4 - 10.8 fL [facility] Platelets (Bld) [#/Vol] 113.0 E9/L Low 150.0 - 500. 0 E9/L [facility] Comment on above: Result Comment: Unab le to obtain accurate platelet count due to platelet clumping. Platelet count estimate appears normal on slide. RBC (Bld) [#/Vol] 2.8 E12/L Low 4.3 - 5.9 E12/L [facility] WBC corrected for nucl RBC A uto (Bld) [#/Vol] 4.9 E9/L Normal 4.0 - 11.0 E9/L [facility] URINALYSISOrdered By: Heladio Barnett on 02-17-2022 Bilirubin Ql (U) Negative (02/17/22 1:14 PM) Normal Negative [facility] UA Auto SS Clarity (U) Clear (02/17/22 1:14 PM) Normal Clear [facility] UA Auto SS Color (U) Yellow (02/17/22 1:14 PM) Normal Yellow [facility] UA Auto SS Epithelial cells.squamous LM.HPF (Urine sed) [#/Area] 0-2 /HPF Normal 0-2/HPF [facility] UA Auto SS Glucose Test strip (U) [Mass/Vol] Negative (02/17/22 1:14 PM) Normal Negative [facility] UA Auto SS Hemoglobin Ql (U) Negative (02/17/22 1:14 PM) Normal Negative [facility] UA Auto SS Ketones (U) [Mass/Vol] Negative (02/17/22 1:14 PM) Normal Negative [facility] UA Auto SS Comstock.plasma/Lithi um.RBC (Bld) [Mass ratio] 0-3 /HPF Normal 0-3/HPF [facility] UA Auto SS Nitrite Ql (U) Negative (02/17/22 1:14 PM) Normal Negative [facility] UA Auto SS pH (U) 7.0 *NA* (02/17/22 1:14 PM) Invalid Interpretation Code 5.0 - 9.0 [facility] UA Auto SS Protein (U) [Mass/Vol] Negative (02/17/22 1:14 PM) Normal Negative [facility] UA Auto SS Specific gravity (U) [Rel density] <=1.005 *NA* (02/17/22 1:14 PM) Invalid Interpretation Code 1.005 - 1.030 [facility] UA Auto SS UA Spec Desc Clean Catch (02/17/22 1:14 PM) Normal [facility] UA Auto SS Urobilinogen Qn (U) [id number] {Alexey'U}/dL Normal 0.0 - 1.0 EU/dL [facility] UA Auto SS WBC Auto Ql (U) Negative (02/17/22 1:14 PM) Normal Negative [facility] UA Auto SS WBC LM.HPF (Urine sed) [#/Area] 0-5 /HPF Normal 0-5/HPF [facility] UA Auto SS Basic metabolic 2000 panelon 02-11-2022 Anion gap [Moles/Vol] 10 mmol/L [facility] Calcium [Mass/Vol] 8.2 mg/dL Low 8.4 - 10.4 mg/dL [facility] Chloride [Moles/Vol] 103 mmol/L 97 - 111 mmol/L [facility] CO2 [Moles/Vol] 24 mmol/L 21 - 30 mmol/L [facility] Creatinine [Mass/Vol] 0.49 mg/dL Low 0.80 - 1.30 mg /dL [facility] Comment on above: Grossly icteric; may falsely decrease creatinine GFR/1.73 sq M.predicted MDRD (S/P/Bld) [Vol rate/Area] 136 mL/min/{1.73_m2} >=60 mL/min/1.73s qm [facility] Comment on above: 2020 CKD EPI Equatio n using Creatinine without Race Comment: Estimated glomerular filtration rate (eGFR) is calculated without a race coefficient. Values should be interpreted in the context of the patient's full clinical presentation. Reference: 1. Fran C, Akhil M, Linden DC, et al.. A Unifying Approach for GFR Estimation: Recommendations of the NKF-ASN Task Force on Reassessing the Inclusion of Race in Diagnosing Kidney Disease. [place] Journal of Kidney Diseases 202;79(2):268-88.e1. 2. N Engl J Med 2020 Vol. 385 Issue 19 Pages 8254-9916 Glucose [Mass/Vol] 105 mg/dL 68 - 110 mg/dL [facility] Interpretation and review of laboratory results Abnormal [facility] Potassium [Moles/Vol] 3.3 mmol/L 3.3 - 5.3 mmol /L [facility] Sodium [Moles/Vol] 134 mmol/L Low 135 - 148 mmol/L [facility] Urea nitrogen [Mass/Vol] 7 mg/dL Low 8 - 22 mg/d L [facility] CBC WITH DIFFERENTIALOrdered By: Ami Brock on 02-11-2022 Erythrocyte distribution wid th (RBC) [Ratio] 17.1 % High 11.5 - 14.5 % [facility] Hematocrit (Bld) [Volume fraction] 29.1 % Low 4 1.0 - 53.0 % [facility] Hemoglobin (Bld) [Mass/Vol] 10.0 g/dL Low 13.9 - 1 6.3 g/dL [facility] MCH (RBC) [Entitic mass] 37.3 pg High 26.0 - 34.0 pg [facility] MCHC (RBC) [Mass/Vol] 34.5 g/dL 32.0 - 35.9 g/ dL [facility] MCV (RBC) [Entitic vol] 108 fL High 80 - 100 fL [facility] Monocyte distribution width Auto (Bld) [Entitic vol] [facility] Platelet mean volume (Bld) [ Entitic vol] 7.2 fL Low 7.5 - 11.2 fL [facility] Platelets (Bld) [#/Vol] 81 10*3/uL Low 150 - 400 K/ uL [facility] RBC (Bld) [#/Vol] 2.69 10*6/uL Low [facility] WBC (Bld) [#/Vol] 4.9 10*3/uL 4.5 - 11.5 K/uL [facility] HAPTOGLOBINon 02-11-2022 Haptoglobin [Mass/Vol] mg/dL Low 36 - 220 mg/d L [facility] Interpretation and review of laboratory results Abnormal [facility] LDHon 02-11-2022 LDH [Catalytic activity/Vol] 321 U/L High [facility] Laboratory - Chemistry and C hemistry - challengeon 02-11-2022 Albumin [Mass/Vol] 2.8 g/dL Low 3.4 - 5.1 g/dL [facility] ALP [Catalytic activity/Vol] 226 U/L High [facility] ALT [Catalytic activity/Vol] 77 U/L High [facility] AST [Catalytic activity/Vol] 88 U/L High [facility] Bilirubin [Mass/Vol] 7.7 mg/dL High 0.1 - 1.5 mg/dL [facility] Bilirubin.direct [Mass/Vol] 1.70 mg/dL High 0.10 - 0 .30 mg/dL [facility] Protein [Mass/Vol] 6.2 g/dL 6.2 - 8.3 g/dL [facility] MANUAL DIFF AND MORPHon Anisocytosis Ql (Bld) Slight [facility] Band form neutrophils/100 WBC (Bld) 5 % <=10 [facility] Bands # 0.25 K/uL High <0.01 [facility] Cells Counted Total (Bld) [#] 100 {cells} [facility] Eosinophils (Bld) [#/Vol] 0.15 10*3/uL 0.00 - 0 .70 K/uL [facility] Eosinophils/100 WBC (Bld) 3.0 % 0.1 - 4.0 % [facility] Lymphocytes (Bld) [#/Vol] 1.08 10*3/uL 1.00 - 4 .80 K/uL [facility] Lymphocytes/100 WBC (Bld) 22.0 % Low 24.0 - 44. 0 % [facility] Metamyelocyte # 0.05 K/uL High <0.01 [facility] Metamyelocytes/100 WBC (Bld) 1 % High <0 [facility] Monocytes (Bld) [#/Vol] 0.54 10*3/uL 0.20 - 1.0 0 K/uL [facility] Monocytes/100 WBC (Bld) 11.0 % 2.0 - 11.0 % [facility] Neutrophils (Bld) [#/Vol] 2.84 10*3/uL 1.50 - 8 .00 K/uL [facility] Neutrophils/100 WBC (Bld) 58.0 % 31.0 - 76. 0 % [facility] Nucleated RBC/100 WBC (Bld) [Ratio] 1 % [facility] Nucleated RBCs 1 K/uL [facility] Polychromasia LM Ql (Bld) Slight [facility] No Panel InformationOrdered By: Ami Brock on 02-11-2022 Interpretation and review of laboratory results Abnormal [facility] No Panel Informationon 02-11 Interpretation and review of laboratory results Abnormal [facility] RETICULOCYTE COUNTOrdered By : Kennedi Fuentes on 02-11-2022 Immature reticulocytes/Total reticulocytes (Bld) 0.45 % [facility] Interpretation and review of laboratory results Abnormal [facility] Reticulocytes (Bld) [#/Vol] 0.08 10*3/uL [facility] Reticulocytes/100 RBC (Bld) 3.0 % High 0.5 - 1. 5 % [facility] Basic metabolic 2000 panelon 01-17-2022 Anion gap [Moles/Vol] 13 mmol/L [facility] Calcium [Mass/Vol] 8.2 mg/dL Low 8.4 - 10.4 mg/dL [facility] Chloride [Moles/Vol] 99 mmol/L 97 - 111 mmol/L [facility] CO2 [Moles/Vol] 23 mmol/L 21 - 30 mmol/L [facility] Creatinine [Mass/Vol] 0.42 mg/dL Low 0.80 - 1.30 mg /dL [facility] GFR/1.73 sq M.predicted MDRD (S/P/Bld) [Vol rate/Area] 142 mL/min/{1.73_m2} >=60 mL/min/1.73s qm [facility] Glucose [Mass/Vol] 84 mg/dL 68 - 110 mg/dL [facility] Potassium [Moles/Vol] 3.8 mmol/L 3.3 - 5.3 mmol /L [facility] Sodium [Moles/Vol] 131 mmol/L Low 135 - 148 mmol/L [facility] Urea nitrogen [Mass/Vol] 8 mg/dL 8 - 22 mg/d L [facility] CBC panel Auto (Bld)Ordered By: sIak Mitchell on 01-17-2022 Erythrocyte distribution wid th (RBC) [Ratio] 23.6 % High 11.5 - 14.5 % [facility] Hematocrit (Bld) [Volume fraction] 23.3 % Low 4 1.0 - 53.0 % [facility] Hemoglobin (Bld) [Mass/Vol] 8.0 g/dL Low 13.9 - 1 6.3 g/dL [facility] Interpretation and review of laboratory results Abnormal [facility] MCH (RBC) [Entitic mass] 38.1 pg High 26.0 - 34.0 pg [facility] MCHC (RBC) [Mass/Vol] 34.2 g/dL 32.0 - 35.9 g/ dL [facility] MCV (RBC) [Entitic vol] 111 fL High 80 - 100 fL [facility] Platelet mean volume (Bld) [ Entitic vol] 9.2 fL 7.5 - 11.2 fL [facility] Platelets (Bld) [#/Vol] 96 10*3/uL Low 150 - 400 K/ uL [facility] RBC (Bld) [#/Vol] 2.09 10*6/uL Low [facility] WBC (Bld) [#/Vol] 9.5 10*3/uL 4.5 - 11.5 K/uL [facility] GLUCOSE, FINGERSTICK-IN OFFI CEon 01-17-2022 Glucose [Mass/Vol] 188 mg/dL High 68 - 110 mg/dL [facility] Interpretation and review of laboratory results Abnormal [facility] HAPTOGLOBINon 01-17-2022 Haptoglobin [Mass/Vol] mg/dL Low 36 - 220 mg/d L [facility] Interpretation and review of laboratory results Abnormal [facility] HEPATIC FUNCTION PANELon Albumin [Mass/Vol] 2.8 g/dL Low 3.4 - 5.1 g/dL [facility] ALP [Catalytic activity/Vol] 133 U/L [facility] ALT [Catalytic activity/Vol] 75 U/L High [facility] AST [Catalytic activity/Vol] 94 U/L High [facility] Bilirubin [Mass/Vol] 12.6 mg/dL High 0.1 - 1.5 mg/dL [facility] Bilirubin.direct [Mass/Vol] 2.40 mg/dL High 0.10 - 0 .30 mg/dL [facility] Protein [Mass/Vol] 6.7 g/dL 6.2 - 8.3 g/dL [facility] LDHon 01-17-2022 LDH [Catalytic activity/Vol] 514 U/L High [facility] No Panel Informationon 01-17 Interpretation and review of laboratory results Abnormal [facility] PROTHROMBIN TIME AND INRon 0 01-17-2022 INR Coag (PPP) [Relative time] 1.97 {INR} High [facility] Interpretation and review of laboratory results Abnormal [facility] PT Coag (PPP) [Time] 22.1 s High [facility] RETICULOCYTE COUNTon 022 Immature reticulocytes/Total reticulocytes (Bld) 0.61 % High [facility] Interpretation and review of laboratory results Abnormal [facility] Reticulocytes (Bld) [#/Vol] 0.14 10*3/uL High [facility] Reticulocytes/100 RBC (Bld) 6.5 % High 0.5 - 1. 5 % [facility] Basic metabolic 2000 panelon 01-16-2022 Anion gap [Moles/Vol] 14 mmol/L [facility] Calcium [Mass/Vol] 8.3 mg/dL Low 8.4 - 10.4 mg/dL [facility] Chloride [Moles/Vol] 98 mmol/L 97 - 111 mmol/L [facility] CO2 [Moles/Vol] 24 mmol/L 21 - 30 mmol/L [facility] Creatinine [Mass/Vol] 0.42 mg/dL Low 0.80 - 1.30 mg /dL [facility] GFR/1.73 sq M.predicted MDRD (S/P/Bld) [Vol rate/Area] 142 mL/min/{1.73_m2} >=60 mL/min/1.73s qm [facility] Glucose [Mass/Vol] 102 mg/dL 68 - 110 mg/dL [facility] Potassium [Moles/Vol] 3.7 mmol/L 3.3 - 5.3 mmol /L [facility] Sodium [Moles/Vol] 132 mmol/L Low 135 - 148 mmol/L [facility] Urea nitrogen [Mass/Vol] 9 mg/dL 8 - 22 mg/d L [facility] CBC panel Auto (Bld)on 01-16 Erythrocyte distribution wid th (RBC) [Ratio] 23.7 % High 11.5 - 14.5 % [facility] Hematocrit (Bld) [Volume fraction] 21.6 % Low 4 1.0 - 53.0 % [facility] Hemoglobin (Bld) [Mass/Vol] 7.4 g/dL Low 13.9 - 1 6.3 g/dL [facility] Interpretation and review of laboratory results Abnormal [facility] MCH (RBC) [Entitic mass] 38.6 pg High 26.0 - 34.0 pg [facility] MCHC (RBC) [Mass/Vol] 34.4 g/dL 32.0 - 35.9 g/ dL [facility] MCV (RBC) [Entitic vol] 112 fL High 80 - 100 fL [facility] Platelet mean volume (Bld) [ Entitic vol] 9.3 fL 7.5 - 11.2 fL [facility] Platelets (Bld) [#/Vol] 94 10*3/uL Low 150 - 400 K/ uL [facility] RBC (Bld) [#/Vol] 1.92 10*6/uL Low [facility] WBC (Bld) [#/Vol] 9.2 10*3/uL 4.5 - 11.5 K/uL [facility] GLUCOSE, FINGERSTICK-IN OFFI CEon 01-16-2022 Glucose [Mass/Vol] 145 mg/dL High 68 - 110 mg/dL [facility] Interpretation and review of laboratory results Abnormal [facility] Glucose [Mass/Vol] 247 mg/dL High 68 - 110 mg/dL [facility] Interpretation and review of laboratory results Abnormal [facility] Glucose [Mass/Vol] 132 mg/dL High 68 - 110 mg/dL [facility] Interpretation and review of laboratory results Abnormal [facility] Glucose [Mass/Vol] 90 mg/dL 68 - 110 mg/dL [facility] Interpretation and review of laboratory results Normal [facility] HAPTOGLOBINon 01-16-2022 Haptoglobin [Mass/Vol] mg/dL Low 36 - 220 mg/d L [facility] Interpretation and review of laboratory results Abnormal [facility] HEPATIC FUNCTION PANELon Albumin [Mass/Vol] 2.7 g/dL Low 3.4 - 5.1 g/dL [facility] ALP [Catalytic activity/Vol] 124 U/L [facility] ALT [Catalytic activity/Vol] 69 U/L High [facility] AST [Catalytic activity/Vol] 93 U/L High [facility] Bilirubin [Mass/Vol] 12.7 mg/dL High 0.1 - 1.5 mg/dL [facility] Bilirubin.direct [Mass/Vol] 2.30 mg/dL High 0.10 - 0 .30 mg/dL [facility] Protein [Mass/Vol] 6.3 g/dL 6.2 - 8.3 g/dL [facility] LDHon 01-16-2022 LDH [Catalytic activity/Vol] 476 U/L High [facility] No Panel Informationon 01-16 Interpretation and review of laboratory results Abnormal [facility] PROTHROMBIN TIME AND INRon 0 01-16-2022 INR Coag (PPP) [Relative time] 2.08 {INR} High [facility] Interpretation and review of laboratory results Abnormal [facility] PT Coag (PPP) [Time] 23.3 s High [facility] Basic metabolic 2000 panelon 01-15-2022 Anion gap [Moles/Vol] 14 mmol/L [facility] Calcium [Mass/Vol] 7.9 mg/dL Low 8.4 - 10.4 mg/dL [facility] Chloride [Moles/Vol] 97 mmol/L 97 - 111 mmol/L [facility] CO2 [Moles/Vol] 25 mmol/L 21 - 30 mmol/L [facility] Creatinine [Mass/Vol] 0.42 mg/dL Low 0.80 - 1.30 mg /dL [facility] GFR/1.73 sq M.predicted MDRD (S/P/Bld) [Vol rate/Area] 142 mL/min/{1.73_m2} >=60 mL/min/1.73s qm [facility] Glucose [Mass/Vol] 112 mg/dL High 68 - 110 mg/dL [facility] Potassium [Moles/Vol] 3.5 mmol/L 3.3 - 5.3 mmol /L [facility] Sodium [Moles/Vol] 132 mmol/L Low 135 - 148 mmol/L [facility] Urea nitrogen [Mass/Vol] 8 mg/dL 8 - 22 mg/d L [facility] CBC panel Auto (Bld)on 01-15 Erythrocyte distribution wid th (RBC) [Ratio] 24.4 % High 11.5 - 14.5 % [facility] Hematocrit (Bld) [Volume fraction] 21.1 % Low 4 1.0 - 53.0 % [facility] Hemoglobin (Bld) [Mass/Vol] 7.3 g/dL Low 13.9 - 1 6.3 g/dL [facility] Interpretation and review of laboratory results Abnormal [facility] MCH (RBC) [Entitic mass] 38.7 pg High 26.0 - 34.0 pg [facility] MCHC (RBC) [Mass/Vol] 34.4 g/dL 32.0 - 35.9 g/ dL [facility] MCV (RBC) [Entitic vol] 113 fL High 80 - 100 fL [facility] Platelet mean volume (Bld) [ Entitic vol] 9.8 fL 7.5 - 11.2 fL [facility] Platelets (Bld) [#/Vol] 74 10*3/uL Low 150 - 400 K/ uL [facility] RBC (Bld) [#/Vol] 1.88 10*6/uL Low [facility] WBC (Bld) [#/Vol] 8.9 10*3/uL 4.5 - 11.5 K/uL [facility] GLUCOSE, FINGERSTICK-IN OFFI CEon 01-15-2022 Glucose [Mass/Vol] 149 mg/dL High 68 - 110 mg/dL [facility] Interpretation and review of laboratory results Abnormal [facility] Glucose [Mass/Vol] 175 mg/dL High 68 - 110 mg/dL [facility] Interpretation and review of laboratory results Abnormal [facility] Glucose [Mass/Vol] 129 mg/dL High 68 - 110 mg/dL [facility] Interpretation and review of laboratory results Abnormal [facility] Glucose [Mass/Vol] 148 mg/dL High 68 - 110 mg/dL [facility] Interpretation and review of laboratory results Abnormal [facility] HAPTOGLOBINon 01-15-2022 Haptoglobin [Mass/Vol] mg/dL Low 36 - 220 mg/d L [facility] Interpretation and review of laboratory results Abnormal [facility] HEPATIC FUNCTION PANELon Albumin [Mass/Vol] 2.6 g/dL Low 3.4 - 5.1 g/dL [facility] ALP [Catalytic activity/Vol] 182 U/L [facility] ALT [Catalytic activity/Vol] 65 U/L High [facility] AST [Catalytic activity/Vol] 104 U/L High [facility] Bilirubin [Mass/Vol] 10.8 mg/dL High 0.1 - 1.5 mg/dL [facility] Bilirubin.direct [Mass/Vol] 2.10 mg/dL High 0.10 - 0 .30 mg/dL [facility] Protein [Mass/Vol] 6.5 g/dL 6.2 - 8.3 g/dL [facility] LDHon 01-15-2022 LDH [Catalytic activity/Vol] 481 U/L High [facility] No Panel Informationon 01-15 Interpretation and review of laboratory results Abnormal [facility] PROTHROMBIN TIME AND INRon 0 01-15-2022 INR Coag (PPP) [Relative time] 1.89 {INR} High [facility] Interpretation and review of laboratory results Abnormal [facility] PT Coag (PPP) [Time] 21.2 s High [facility] Basic metabolic 2000 panelon 01-14-2022 Anion gap [Moles/Vol] 11 mmol/L [facility] Calcium [Mass/Vol] 8.2 mg/dL Low 8.4 - 10.4 mg/dL [facility] Chloride [Moles/Vol] 101 mmol/L 97 - 111 mmol/L [facility] CO2 [Moles/Vol] 27 mmol/L 21 - 30 mmol/L [facility] Creatinine [Mass/Vol] 0.44 mg/dL Low 0.80 - 1.30 mg /dL [facility] GFR/1.73 sq M.predicted MDRD (S/P/Bld) [Vol rate/Area] 140 mL/min/{1.73_m2} >=60 mL/min/1.73s qm [facility] Glucose [Mass/Vol] 136 mg/dL High 68 - 110 mg/dL [facility] Potassium [Moles/Vol] 3.4 mmol/L 3.3 - 5.3 mmol /L [facility] Sodium [Moles/Vol] 136 mmol/L 135 - 148 mmol/L [facility] Urea nitrogen [Mass/Vol] 6 mg/dL Low 8 - 22 mg/d L [facility] CBC WITH DIFFERENTIALOrdered By: Erika Martin on 01-14-2022 Erythrocyte distribution wid th (RBC) [Ratio] 24.1 % High 11.5 - 14.5 % [facility] Hematocrit (Bld) [Volume fraction] 21.3 % Low 4 1.0 - 53.0 % [facility] Hemoglobin (Bld) [Mass/Vol] 7.3 g/dL Low 13.9 - 1 6.3 g/dL [facility] MCH (RBC) [Entitic mass] 38.4 pg High 26.0 - 34.0 pg [facility] MCHC (RBC) [Mass/Vol] 34.4 g/dL 32.0 - 35.9 g/ dL [facility] MCV (RBC) [Entitic vol] 112 fL High 80 - 100 fL [facility] Monocyte distribution width Auto (Bld) [Entitic vol] [facility] Nucleated RBC (Bld) [#/Vol] 0.15 10*3/uL [facility] Nucleated RBC/100 WBC (Bld) [Ratio] 2.0 % [facility] Platelet mean volume (Bld) [ Entitic vol] 9.4 fL 7.5 - 11.2 fL [facility] Platelets (Bld) [#/Vol] 65 10*3/uL Low 150 - 400 K/ uL [facility] RBC (Bld) [#/Vol] 1.91 10*6/uL Low [facility] WBC (Bld) [#/Vol] 7.3 10*3/uL 4.5 - 11.5 K/uL [facility] FIBRINOGENOrdered By: Elvia Humphrey on 01-14-2022 Fibrin+Fibrinogen fragments (S) [Mass/Vol] 122 mg/dL Low 200 - 500 mg/dL [facility] Interpretation and review of laboratory results Abnormal [facility] GLUCOSE, FINGERSTICK-IN OFFI CEon 01-14-2022 Glucose [Mass/Vol] 139 mg/dL High 68 - 110 mg/dL [facility] Interpretation and review of laboratory results Abnormal [facility] Glucose [Mass/Vol] 203 mg/dL High 68 - 110 mg/dL [facility] Interpretation and review of laboratory results Abnormal [facility] Glucose [Mass/Vol] 143 mg/dL High 68 - 110 mg/dL [facility] Interpretation and review of laboratory results Abnormal [facility] Glucose [Mass/Vol] 154 mg/dL High 68 - 110 mg/dL [facility] Interpretation and review of laboratory results Abnormal [facility] HAPTOGLOBINon 01-14-2022 Haptoglobin [Mass/Vol] mg/dL Low 36 - 220 mg/d L [facility] Interpretation and review of laboratory results Abnormal [facility] HEPATIC FUNCTION PANELon Albumin [Mass/Vol] 2.6 g/dL Low 3.4 - 5.1 g/dL [facility] ALP [Catalytic activity/Vol] 177 U/L [facility] ALT [Catalytic activity/Vol] 62 U/L High [facility] AST [Catalytic activity/Vol] 104 U/L High [facility] Bilirubin [Mass/Vol] 11.5 mg/dL High 0.1 - 1.5 mg/dL [facility] Bilirubin.direct [Mass/Vol] 2.20 mg/dL High 0.10 - 0 .30 mg/dL [facility] Protein [Mass/Vol] 6.4 g/dL 6.2 - 8.3 g/dL [facility] LDHon 01-14-2022 LDH [Catalytic activity/Vol] 473 U/L High [facility] Laboratory - Microbiology an d Antimicrobial susceptibilityon 01-14-2022 Bacteria identified Cx Nom (Bld) No Growth [facility] MANUAL DIFF AND MORPHon 01-05 Anisocytosis Ql (Bld) Marked [facility] [place] cells LM Ql (Bld) Few [facility] Cells Counted Total (Bld) [#] 100 {cells} [facility] Eosinophils (Bld) [#/Vol] 0.15 10*3/uL 0.00 - 0 .70 K/uL [facility] Eosinophils/100 WBC (Bld) 2.0 % 0.1 - 4.0 % [facility] Lymphocytes (Bld) [#/Vol] 1.46 10*3/uL 1.00 - 4 .80 K/uL [facility] Lymphocytes/100 WBC (Bld) 20.0 % Low 24.0 - 44. 0 % [facility] Macrocytes Ql (Bld) Moderate [facility] Metamyelocyte # 0.07 K/uL High <0.01 [facility] Metamyelocytes/100 WBC (Bld) 1 % High <0 [facility] Monocytes (Bld) [#/Vol] 0.66 10*3/uL 0.20 - 1.0 0 K/uL [facility] Monocytes/100 WBC (Bld) 9.0 % 2.0 - 11.0 % [facility] Myelocyte # 0.15 K/uL High <0.01 [facility] Myelocytes 2 % High <0 [facility] Neutrophils (Bld) [#/Vol] 4.82 10*3/uL 1.50 - 8 .00 K/uL [facility] Neutrophils/100 WBC (Bld) 66.0 % 31.0 - 76. 0 % [facility] Ovalocytes LM Ql (Bld) Few [facility] Polychromasia LM Ql (Bld) Slight [facility] Schistocytes LM Ql (Bld) Few [facility] Target cells LM Ql (Bld) Few [facility] No Panel Informationon 01-14 Interpretation and review of laboratory results Normal [facility] Interpretation and review of laboratory results Abnormal [facility] No Panel InformationOrdered By: Erika Martin on 01-14-2022 Interpretation and review of laboratory results Abnormal [facility] PROTHROMBIN TIME AND INRon 0 01-14-2022 INR Coag (PPP) [Relative time] 1.94 {INR} [facility] of [facility] results Abnormal [facility] PT Coag (PPP) [Time] 21.8 s High [facility] Basic metabolic 2000 panelon 01-13-2022 Anion gap [Moles/Vol] 10 mmol/L [facility] Cal[facility] [Mass/Vol] 8.1 mg/dL Low 8.4 - 10.4 mg/dL [facility] Chloride [Moles/Vol] 99 mmol/L 97 - 111 mmol/L [facility] CO2 [Moles/Vol] 29 mmol/L 21 - 30 mmol/L [facility] Creatinine [Mass/Vol] 0.40 mg/dL Low 0.80 - 1.30 mg /dL [facility] GFR/1.73 sq M.predicted MDRD (S/P/Bld) [Vol rate/Area] 144 mL/min/{1.73_m2} >=60 mL/min/1.73s qm [facility] Glucose [Mass/Vol] 130 mg/dL High 68 - 110 mg/dL [facility] Potassium [Moles/Vol] 3.4 mmol/L 3.3 - 5.3 mmol /L [facility] Sodium [Moles/Vol] 135 mmol/L 135 - 148 mmol/L [facility] Urea nitrogen [Mass/Vol] 6 mg/dL Low 8 - 22 mg/d L [facility] CBC WITH DIFFERENTIALon Erythrocyte distribution width (RBC) [Ratio] 24.4 % High 11.5 - 14.5 % [facility] Hematocrit (Bld) [Volume fraction] 19.3 % Critically low 41.0 - 53.0 % [facility] Hemoglobin (Bld) [Mass/Vol] 6.7 g/dL Critically low 13.9 - 16.3 g/dL [facility] MCH (RBC) [Entitic mass] 38.1 pg High 26.0 - 34.0 pg [facility] MCHC (RBC) [Mass/Vol] 34.7 g/dL 32.0 - 35.9 g/ dL [facility] MCV (RBC) [Entitic vol] 110 fL High 80 - 100 fL [facility] Monocyte distribution width Auto (Bld) [Entitic vol] [facility] Nucleated RBC (Bld) [#/Vol] 0.22 10*3/uL [facility] Nucleated RBC/100 WBC (Bld) [Ratio] 3.0 % [facility] Platelet mean volume (Bld) [Entitic vol] 8.9 fL 7.5 - 11.2 fL [facility] Platelets (Bld) [#/Vol] 67 10*3/uL Low 150 - 400 K/ uL [facility] RBC (Bld) [#/Vol] 1.76 10*6/uL Low [facility] WBC (Bld) [#/Vol] 7.3 10*3/uL 4.5 - 11.5 K/uL [facility] COPPERon 01-13-2022 Copper [Mass/Vol] 63 Low [facility] Interpretation and review of laboratory results Abnormal [facility] FACTOR VIII ASSAYOrdered By: Jozef Gibbons on 01-13-2022 Factor VIII Assay 356 % High 55 - 180 % [facility] Interpretation and review of laboratory results Abnormal [facility] GLUCOSE, FINGERSTICK-IN OFFI CEon 01-13-2022 Glucose [Mass/Vol] 185 mg/dL High 68 - 110 mg/dL [facility] Glucose [Mass/Vol] 226 mg/dL High 68 - 110 mg/dL [facility] Glucose [Mass/Vol] 152 mg/dL High 68 - 110 mg/dL [facility] Interpretation and review of laboratory results Abnormal [facility] Glucose [Mass/Vol] 140 mg/dL High 68 - 110 mg/dL [facility] Interpretation and review of laboratory results Abnormal [facility] HAPTOGLOBINon 01-13-2022 Haptoglobin [Mass/Vol] mg/dL Low 36 - 220 mg/d L [facility] Interpretation and review of laboratory results Abnormal [facility] HEPATIC FUNCTION PANELon Albumin [Mass/Vol] 2.6 g/dL Low 3.4 - 5.1 g/dL [facility] ALP [Catalytic activity/Vol] 169 U/L [facility] ALT [Catalytic activity/Vol] 63 U/L High [facility] AST [Catalytic activity/Vol] 124 U/L High [facility] Bilirubin [Mass/Vol] 11.4 mg/dL High 0.1 - 1.5 mg/dL [facility] Bilirubin.direct [Mass/Vol] 2.10 mg/dL High 0.10 - 0 .30 mg/dL [facility] Protein [Mass/Vol] 6.2 g/dL 6.2 - 8.3 g/dL [facility] HEPATITIS C QUANT BY PCROrde red By: Gera Meza on 01-13-2022 HCV RNA panel ANGIE+probe Not detected Not Detect ed [facility] LDHon 01-13-2022 LDH [Catalytic activity/Vol] 497 U/L High [facility] MANUAL DIFF AND MORPHon Anisocytosis Ql (Bld) Marked [facility] Atypical Lymph # 0.15 K/uL [facility] Band form neutrophils/100 WBC (Bld) 8 % <=10 [facility] Bands # 0.58 K/uL High <0.01 [facility] [place] cells LM Ql (Bld) Few [facility] Cells Counted Total (Bld) [#] 100 {cells} [facility] Lymphocytes (Bld) [#/Vol] 1.10 10*3/uL 1.00 - 4 .80 K/uL [facility] Lymphocytes/100 WBC (Bld) 15.0 % Low 24.0 - 44. 0 % [facility] Macrocytes Ql (Bld) Moderate [facility] Metamyelocyte # 0.07 K/uL High <0.01 [facility] Metamyelocytes/100 WBC (Bld) 1 % High <0 [facility] Monocytes (Bld) [#/Vol] 0.07 10*3/uL Low 0.20 - 1.0 0 K/uL [facility] Monocytes/100 WBC (Bld) 1.0 % Low 2.0 - 11.0 % [facility] Myelocyte # 0.29 K/uL High <0.01 [facility] Myelocytes 4 % High <0 [facility] Neutrophils (Bld) [#/Vol] 5.04 10*3/uL 1.50 - 8 .00 K/uL [facility] Neutrophils/100 WBC (Bld) 69.0 % 31.0 - 76. 0 % [facility] Polychromasia LM Ql (Bld) Moderate [facility] Target cells LM Ql (Bld) Few [facility] Variant lymphocytes/100 WBC (Bld) 2 % [facility] No Panel Informationon 01-13 Interpretation and review of laboratory results Abnormal [facility] Interpretation and review of laboratory results [facility] Interpretation and review of laboratory results Abnormal [facility] PROTHROMBIN TIME AND INRon 0 01-13-2022 INR Coag (PPP) [Relative time] 2.05 {INR} High [facility] Interpretation and review of laboratory results Abnormal [facility] PT Coag (PPP) [Time] 23.0 s High [facility] Basic metabolic 2000 panelon 01-12-2022 Anion gap [Moles/Vol] 11 mmol/L [facility] Calcium [Mass/Vol] 7.9 mg/dL Low 8.4 - 10.4 mg/dL [facility] Chloride [Moles/Vol] 98 mmol/L 97 - 111 mmol/L [facility] CO2 [Moles/Vol] 26 mmol/L 21 - 30 mmol/L [facility] Creatinine [Mass/Vol] 0.39 mg/dL Low 0.80 - 1.30 mg /dL [facility] GFR/1.73 sq M.predicted MDRD (S/P/Bld) [Vol rate/Area] 145 mL/min/{1.73_m2} >=60 mL/min/1.73sqm [facility] Glucose [Mass/Vol] 147 mg/dL High 68 - 110 mg/dL [facility] Interpretation and review of laboratory results Abnormal [facility] Potassium [Moles/Vol] 3.2 mmol/L Low 3.3 - 5.3 mmol /L [facility] Sodium [Moles/Vol] 132 mmol/L Low 135 - 148 mmol/L [facility] Urea nitrogen [Mass/Vol] 6 mg/dL Low 8 - 22 mg/d L [facility] CBC WITH DIFFERENTIALOrdered By: Tayla Strickland on 01-12-2022 Erythrocyte distribution width (RBC) [Ratio] 25.3 % High 11.5 - 14.5 % [facility] Hematocrit (Bld) [Volume fraction] 19.5 % Critically low 41.0 - 53.0 % [facility] Hemoglobin (Bld) [Mass/Vol] 6.6 g/dL Critically low 13.9 - 16.3 g/dL [facility] MCH (RBC) [Entitic mass] 38.2 pg High 26.0 - 34.0 pg [facility] MCHC (RBC) [Mass/Vol] 33.9 g/dL 32.0 - 35.9 g/ dL [facility] MCV (RBC) [Entitic vol] 113 fL High 80 - 100 fL [facility] Monocyte distribution width Auto (Bld) [Entitic vol] [facility] Nucleated RBC (Bld) [#/Vol] 0.12 10*3/uL [facility] Nucleated RBC/100 WBC (Bld) [Ratio] 1.6 % [facility] Platelet mean volume (Bld) [Entitic vol] 8.8 fL 7.5 - 11.2 fL [facility] Platelets (Bld) [#/Vol] 69 10*3/uL Low 150 - 400 K/ uL [facility] RBC (Bld) [#/Vol] 1.73 10*6/uL Low [facility] WBC (Bld) [#/Vol] 7.8 10*3/uL 4.5 - 11.5 K/uL [facility] CBC WITH DIFFERENTIALon 05-0 Basophils (Bld) [#/Vol] 0.06 10*3/uL 0.00 - 0.2 0 K/uL [facility] Basophils/100 WBC (Bld) 0.7 % <=1.9 [facility] Eosinophils (Bld) [#/Vol] 0.08 10*3/uL 0.00 - 0 .70 K/uL [facility] Eosinophils/100 WBC (Bld) 0.9 % 0.1 - 4.0 % [facility] Erythrocyte distribution width (RBC) [Ratio] 25.4 % High 11.5 - 14.5 % [facility] Hematocrit (Bld) [Volume fraction] 18.7 % Critically low 41.0 - 53.0 % [facility] Hemoglobin (Bld) [Mass/Vol] 6.5 g/dL Critically low 13.9 - 16.3 g/dL [facility] Interpretation and review of laboratory results Abnormal [facility] Lymphocytes (Bld) [#/Vol] 1.66 10*3/uL 1.00 - 4 .80 K/uL [facility] Lymphocytes/100 WBC (Bld) 20.7 % Low 24.0 - 44. 0 % [facility] MCH (RBC) [Entitic mass] 38.1 pg High 26.0 - 34.0 pg [facility] MCHC (RBC) [Mass/Vol] 35.0 g/dL 32.0 - 35.9 g/ dL [facility] MCV (RBC) [Entitic vol] 109 fL High 80 - 100 fL [facility] Monocyte distribution width Auto (Bld) [Entitic vol] [facility] [#/Vol] 0.91 10*3/uL 0.20 - 1.0 0 K/uL [facility] Monocytes/100 WBC (Bld) 11.3 % High 2.0 - 11.0 % [facility] Neutrophils (Bld) [#/Vol] 5.32 10*3/uL 1.50 - 8 .00 K/uL [facility] Neutrophils/100 WBC (Bld) 66.4 % 31.0 - 76. 0 % [facility] Platelet mean volume (Bld) [Entitic vol] 8.7 fL 7.5 - 11.2 fL [facility] Platelets (Bld) [#/Vol] 59 10*3/uL Low 150 - 400 K/ [facility] RBC (Bld[facility] [#/Vol] 1.72 10*6/uL Low [facility] WBC (Bld) [#/Vol] 8.0 10*3/uL 4.5 - 11.5 K/uL [facility] GLUCOSE, FINGERSTICK-IN OFFI CEon 01-12-2022 Glucose [Mass/Vol] 140 mg/dL High 68 - 110 mg/dL [facility] Interpretation and review of laboratory results Abnormal [facility] Glucose [Mass/Vol] 157 mg/dL High 68 - 110 mg/dL [facility] Interpretation and review of laboratory results Abnormal [facility] HAPTOGLOBINon 01-12-2022 Haptoglobin [Mass/Vol] mg/dL Low 36 - 220 mg/d L [facility] Interpretation and review of laboratory results Abnormal [facility] HEPATIC FUNCTION PANELon Albumin [Mass/Vol] 2.6 g/dL Low 3.4 - 5.1 g/dL [facility] ALP [Catalytic activity/Vol] 148 U/L [facility] ALT [Catalytic activity/Vol] 61 U/L High [facility] AST [Catalytic activity/Vol] 131 U/L High [facility] Bilirubin [Mass/Vol] 11.1 mg/dL High 0.1 - 1.5 mg/dL [facility] Bilirubin.direct [Mass/Vol] 2.10 mg/dL High 0.10 - 0 .30 mg/dL [facility] Protein [Mass/Vol] 6.4 g/dL 6.2 - 8.3 g/dL [facility] LDHon 01-12-2022 LDH [Catalytic activity/Vol] 458 U/L High [facility] MANUAL DIFF AND MORPHon Anisocytosis Ql (Bld) Moderate [facility] Band form neutrophils/100 WBC (Bld) 3 % <=10 [facility] Bands # 0.23 K/uL High <0.01 [facility] [place] cells LM Ql (Bld) Few [facility] Cells Counted Total (Bld) [#] 100 {cells} [facility] Lymphocytes (Bld) [#/Vol] 0.62 10*3/uL Low 1.00 - 4 .80 K/uL [facility] Lymphocytes/100 WBC (Bld) 8.0 % Low 24.0 - 44. 0 % [facility] Metamyelocyte # 0.16 K/uL High <0.01 [facility] Metamyelocytes/100 WBC (Bld) 2 % High <0 [facility] Monocytes (Bld) [#/Vol] 0.94 10*3/uL 0.20 - 1.0 0 K/uL [facility] Monocytes/100 WBC (Bld) 12.0 % High 2.0 - 11.0 % [facility] Myelocyte # 0.08 K/uL High <0.01 [facility] Myelocytes 1 % High <0 [facility] Neutrophils (Bld) [#/Vol] 5.77 10*3/uL 1.50 - 8 .00 K/uL [facility] Neutrophils/100 WBC (Bld) 74.0 % 31.0 - 76. 0 % [facility] Nucleated RBC/100 WBC (Bld) [Ratio] 5 % [facility] Nucleated RBCs 5 K/uL [facility] Ovalocytes LM Ql (Bld) Few [facility] Polychromasia LM Ql (Bld) Slight [facility] Anisocytosis Ql (Bld) Marked [facility] [place] cells LM Ql (Bld) Few [facility] Cells Counted Total (Bld) [#] [facility] Macrocytes Ql (Bld) Slight [facility] Polychromasia LM Ql (Bld) Slight [facility] Target cells LM Ql (Bld) Few [facility] No Panel InformationOrdered By: Tayla Strickland on 01-12-2022 Interpretation and review of laboratory results Abnormal [facility] No Panel Informationon 01-12 [facility] Interpretation and review of laboratory results Abnormal [facility] PROTHROMBIN TIME AND INRon 0 01-12-2022 INR Coag (PPP) [Relative time] 2.12 {INR} High [facility] Interpretation and review of laboratory results Abnormal [facility] PT Coag (PPP) [Time] 23.8 s High [facility] ABO RH TYPEon 01-11-2022 [facility] Basic metabolic 2000 panelon 01-11-2022 Anion gap [Moles/Vol] 10 [facility] [Mass/Vol] 8.0 mg/dL Low 8.4 - 10.4 mg/dL [facility] Chloride [Moles/Vol] 101 mmol/L 97 - 111 mmol/L [facility] CO2 [Moles/Vol] 25 mmol/L 21 - 30 mmol/L [facility] Creatinine [Mass/Vol] 0.43 mg/dL Low 0.80 - 1.30 mg /dL [facility] GFR/1.73 sq M.predicted MDRD (S/P/Bld) [Vol rate/Area] 141 mL/min/{1.73_m2} >=60 mL/min/1.73s qm [facility] Glucose [Mass/Vol] 149 mg/dL High 68 - 110 mg/dL [facility] Potassium [Moles/Vol] 3.4 mmol/L 3.3 - 5.3 mmol /L [facility] Sodium [Moles/Vol] 133 mmol/L Low 135 - 148 mmol/L [facility] Urea nitrogen [Mass/Vol] 5 mg/dL Low 8 - 22 mg/d L [facility] CBC WITH DIFFERENTIALOrdered By: Nasrin Barr on 01-11-2022 Erythrocyte distribution width (RBC) [Ratio] 24.8 % High 11.5 - 14.5 % [facility] Hematocrit (Bld) [Volume fraction] 17.6 % Critically low 41.0 - 53.0 % [facility] Hemoglobin (Bld) [Mass/Vol] 6.2 g/dL Critically low 13.9 - 16.3 g/dL [facility] MCH (RBC) [Entitic mass] 38.4 pg High 26.0 - 34.0 pg [facility] MCHC (RBC) [Mass/Vol] 35.2 g/dL 32.0 - 35.9 g/ dL [facility] MCV (RBC) [Entitic vol] 109 fL High 80 - 100 fL [facility] Monocyte distribution width Auto (Bld) [Entitic vol] [facility] Plate[facility] mean volume (Bld) [Entitic vol] 9.4 fL 7.5 - 11.2 fL [facility] Platelets (Bld) [#/Vol] 88 10*3/uL Low 150 - 400 K/ uL [facility] RBC (Bld) [#/Vol] 1.61 10*6/uL Low [facility] WBC (Bld) [#/Vol] 7.2 10*3/uL 4.5 - 11.5 K/uL [facility] CBC WITH DIFFERENTIALon 05-0 7-2021 Basophils (Bld) [#/Vol] 0.04 10*3/uL 0.00 - 0.2 0 K/uL [facility] Basophils/100 WBC (Bld) 0.5 % <=1.9 [facility] Eosinophils (Bld) [#/Vol] 0.02 10*3/uL 0.00 - 0 .70 K/uL [facility] Eosinophils/100 WBC (Bld) 0.2 % 0.1 - 4.0 % [facility] Erythrocyte distribution width (RBC) [Ratio] 23.6 % High 11.5 - 14.5 % [facility] Hematocrit (Bld) [Volume fraction] 16.7 % Critically low 41.0 - 53.0 % [facility] Hemoglobin (Bld) [Mass/Vol] 5.9 g/dL Critically low 13.9 - 16.3 g/dL [facility] Interpretation and review of laboratory results Abnormal [facility] Lymphocytes (Bld) [#/Vol] 0.93 10*3/uL Low 1.00 - 4 .80 K/uL [facility] Lymphocytes/100 WBC (Bld) 12.7 % Low 24.0 - 44. 0 % [facility] MCH (RBC) [Entitic mass] 38.2 pg High 26.0 - 34.0 pg [facility] MCHC (RBC) [Mass/Vol] 35.3 g/dL 32.0 - 35.9 g/ dL [facility] MCV (RBC) [Entitic vol] 108 fL High 80 - 100 fL [facility] Monocyte distribution width Auto (Bld) [Entitic vol] [facility] [#/Vol] 0.96 10*3/uL 0.20 - 1.0 0 K/uL [facility] Monocytes/100 WBC (Bld) 13.3 % High 2.0 - 11.0 % [facility] Neutrophils (Bld) [#/Vol] 5.33 10*3/uL 1.50 - 8 .00 K/uL [facility] Neutrophils/100 WBC (Bld) 73.3 % 31.0 - 76. 0 % [facility] Platelet mean volume (Bld) [Entitic vol] 8.4 fL 7.5 - 11.2 fL [facility] Platelets (Bld) [#/Vol] 62 10*3/uL Low 150 - 400 K/ uL [facility] RBC (Bld) [#/Vol] 1.54 10*6/uL Low [facility] WBC (Bld) [#/Vol] 7.3 10*3/uL 4.5 - 11.5 K/uL [facility] F[facility]ERSTICK-IN OFFI CEon 01-11-2022 Glucose [Mass/Vol] 167 mg/dL High 68 - 110 mg/dL [facility] Interpretation and review of laboratory results Abnormal [facility] HAPTOGLOBINon 01-11-2022 Haptoglobin [Mass/Vol] mg/dL Low 36 - 220 mg/d L [facility] Interpretation and review of laboratory results Abnormal [facility] HEPATIC FUNCTION PANELon Albumin [Mass/Vol] 2.6 g/dL Low 3.4 - 5.1 g/dL [facility] ALP [Catalytic activity/Vol] 95 U/L [facility] ALT [Catalytic activity/Vol] 57 U/L High [facility] AST [Catalytic activity/Vol] 143 U/L High [facility] Bilirubin [Mass/Vol] 11.4 mg/dL High 0.1 - 1.5 mg/dL [facility] Bilirubin.direct [Mass/Vol] 2.20 mg/dL High 0.10 - 0 .30 mg/dL [facility] Protein [Mass/Vol] 5.7 g/dL Low 6.2 - 8.3 g/dL [facility] LDHon 01-11-2022 LDH [Catalytic activity/Vol] 428 U/L High [facility] Laboratory - Blood bankon ABO and Rh group Nom (Bld) Blood group A Rh(D) positive [facility] MAGNESIUMon 01-11-2022 Interpretation and review of laboratory results Normal [facility] Magnesium [Mass/Vol] 2.0 mg/dL 1.6 - 2.8 mg/dL [facility] MANUAL DIFF AND MORPHon Band form neutrophils/100 WBC (Bld) 3 % <=10 [facility] Bands # 0.22 K/uL High <0.01 [facility] [place] cells LM Ql (Bld) Few [facility] Cells Counted Total (Bld) [#] 100 {cells} [facility] Eosinophils (Bld) [#/Vol] 0.14 10*3/uL 0.00 - 0 .70 K/uL [facility] Eosinophils/100 WBC (Bld) 2.0 % 0.1 - 4.0 % [facility] Lymphocytes (Bld) [#/Vol] 0.72 10*3/uL Low 1.00 - 4 .80 K/uL [facility] Lymphocytes/100 WBC (Bld) 10.0 % Low 24.0 - 44. 0 % [facility] Macrocytes Ql (Bld) Marked [facility] Monocytes (Bld) [#/Vol] 0.50 10*3/uL 0.20 - 1.0 0 K/uL [facility] Monocytes/100 WBC (Bld) 7.0 % 2.0 - 11.0 % [facility] Neutrophils (Bld) [#/Vol] 5.62 10*3/uL 1.50 - 8 .00 K/uL [facility] Neutrophils/100 WBC (Bld) 78.0 % High 31.0 - 76. 0 % [facility] Ovalocytes LM Ql (Bld) Few [facility] Platelets Large LM Ql (Bld) Present [facility] Polychromasia LM Ql (Bld) Moderate [facility] Target cells LM Ql (Bld) Few [facility] Anisocytosis Ql (Bld) Marked [facility] [place] cells LM Ql (Bld) Few [facility] Cells Counted Total (Bld) [#] [facility] Macrocytes Ql (Bld) Slight [facility] Polychromasia LM Ql (Bld) Slight [facility] RBC.hypochromic/100 RBC Auto (Bld) Slight [facility] Schistocytes LM Ql (Bld) Few [facility] Target cells LM Ql (Bld) Few [facility] No Panel InformationOrdered By: Nasrin Barr on 01-11-2022 Interpretation and review of laboratory results Abnormal [facility] No Panel Informationon 01-11 [facility] Interpretation and review of laboratory results Abnormal [facility] PROTHROMBIN TIME AND INRon 0 01-11-2022 INR Coag (PPP) [Relative time] 2.16 {INR} High [facility] Interpretation and review of laboratory results Abnormal [facility] PT Coag (PPP) [Time] 24.2 s High [facility] TYPE AND SCREENon 01-11-2022 ABO and Rh group Nom (Bld) Blood group A Rh(D) positive [facility] ABO and Rh group Nom (Bld) No Previous Results [facility] Blood group antibody screen Ql Negative [facility] Basic metabolic 2000 panelon 01-10-2022 Anion gap [Moles/Vol] 17 mmol/L [facility] Calcium [Mass/Vol] 8.6 mg/dL 8.4 - 10.4 mg/dL [facility] Chloride [Moles/Vol] 99 mmol/L 97 - 111 mmol/L [facility] CO2 [Moles/Vol] 22 mmol/L 21 - 30 mmol/L [facility] Creatinine [Mass/Vol] 0.60 mg/dL Low 0.80 - 1.30 mg /dL [facility] GFR/1.73 sq M.predicted MDRD (S/P/Bld) [Vol rate/Area] 128 mL/min/{1.73_m2} >=60 mL/min/1.73sqm [facility] Glucose [Mass/Vol] 165 mg/dL High 68 - 110 mg/dL [facility] Interpretation and review of laboratory results Abnormal [facility] Potassium [Moles/Vol] 3.5 mmol/L 3.3 - 5.3 mmol /L [facility] Sodium [Moles/Vol] 134 mmol/L Low 135 - 148 mmol/L [facility] Urea nitrogen [Mass/Vol] 4 mg/dL Low 8 - 22 mg/d L [facility] Anion gap [Moles/Vol] 9 mmol/L Low [facility] Calcium [Mass/Vol] 8.4 mg/dL 8.4 - 10.4 mg/dL [facility] Chloride [Moles/Vol] 101 mmol/L 97 - 111 mmol/L [facility] CO2 [Moles/Vol] 27 mmol/L 21 - 30 mmol/L [facility] Creatinine [Mass/Vol] 0.44 mg/dL Low 0.80 - 1.30 mg /dL [facility] GFR/1.73 sq M.predicted MDRD (S/P/Bld) [Vol rate/Area] 140 mL/min/{1.73_m2} >=60 mL/min/1.73sqm [facility] Glucose [Mass/Vol] 172 mg/dL High 68 - 110 mg/dL [facility] Potassium [Moles/Vol] 4.0 mmol/L 3.3 - 5.3 mmol /L [facility] Sodium [Moles/Vol] 133 mmol/L Low 135 - 148 mmol/L [facility] Urea nitrogen [Mass/Vol] 9 mg/dL 8 - 22 mg/d L [facility] CBC WITH DIFFERENTIALOrdered By: Meka Morales on 01-10-2022 Basophils (Bld) [#/Vol] 0.06 10*3/uL 0.00 - 0.2 0 K/uL [facility] Basophils/100 WBC (Bld) 1.2 % <=1.9 [facility] Eosinophils (Bld) [#/Vol] 0.01 10*3/uL 0.00 - 0 .70 K/uL [facility] Eosinophils/100 WBC (Bld) 0.1 % 0.1 - 4.0 % [facility] Erythrocyte distribution width (RBC) [Ratio] 23.8 % High 11.5 - 14.5 % [facility] Hematocrit (Bld) [Volume fraction] 19.1 % Critically low 41.0 - 53.0 % [facility] Hemoglobin (Bld) [Mass/Vol] 6.8 g/dL Critically low 13.9 - 16.3 g/dL [facility] Interpretation and review of laboratory results Abnormal [facility] Lymphocytes (Bld) [#/Vol] 0.69 10*3/uL Low 1.00 - 4 .80 K/uL [facility] Lymphocytes/100 WBC (Bld) 12.7 % Low 24.0 - 44. 0 % [facility] MCH (RBC) [Entitic mass] 37.9 pg High 26.0 - 34.0 pg [facility] MCHC (RBC) [Mass/Vol] 35.5 g/dL 32.0 - 35.9 g/ dL [facility] MCV (RBC) [Entitic vol] 107 fL High 80 - 100 fL [facility] Monocyte distribution width Auto (Bld) [Entitic vol] [facility] Monocytes (Bld) [#/Vol] 0.57 10*3/uL 0.20 - 1.0 0 K/uL [facility] Monocytes/100 WBC (Bld) 10.6 % 2.0 - 11.0 % [facility] Neutrophils (Bld) [#/Vol] 4.07 10*3/uL 1.50 - 8 .00 K/uL [facility] Neutrophils/100 WBC (Bld) 75.3 % 31.0 - 76. 0 % [facility] Platelet mean volume (Bld) [Entitic vol] 9.8 fL 7.5 - 11.2 fL [facility] Platelets (Bld) [#/Vol] 93 10*3/uL Low 150 - 400 K/ uL [facility] RBC (Bld) [#/Vol] 1.79 10*6/uL Low [facility] WBC (Bld) [#/Vol] 5.4 10*3/uL 4.5 - 11.5 K/uL [facility] CBC WITH DIFFERENTIALon 0 Basophils (Bld) [#/Vol] 0.07 10*3/uL 0.00 - 0.2 0 K/uL [facility] Basophils/100 WBC (Bld) 1.4 % <=1.9 [facility] Eosinophils (Bld) [#/Vol] 0.03 10*3/uL 0.00 - 0 .70 K/uL [facility] Eosinophils/100 WBC (Bld) 0.6 % 0.1 - 4.0 % [facility] Erythrocyte distribution width (RBC) [Ratio] 23.4 % High 11.5 - 14.5 % [facility] Hematocrit (Bld) [Volume fraction] 19.2 % Critically low 41.0 - 53.0 % [facility] Hemoglobin (Bld) [Mass/Vol] 6.8 g/dL Critically low 13.9 - 16.3 g/dL [facility] Interpretation and review of laboratory results Abnormal [facility] Lymphocytes (Bld) [#/Vol] 0.72 10*3/uL Low 1.00 - 4 .80 K/uL [facility] Lymphocytes/100 WBC (Bld) 15.4 % Low 24.0 - 44. 0 % [facility] MCH (RBC) [Entitic mass] 37.5 pg High 26.0 - 34.0 pg [facility] MCHC (RBC) [Mass/Vol] 35.3 g/dL 32.0 - 35.9 g/ dL [facility] MCV (RBC) [Entitic vol] 106 fL High 80 - 100 fL [facility] Monocyte distribution width Auto (Bld) [Entitic vol] [facility] Monocytes (Bld) [#/Vol] 0.45 10*3/uL 0.20 - 1.0 0 K/uL [facility] Monocytes/100 WBC (Bld) 9.7 % 2.0 - 11.0 % [facility] Neutrophils (Bld) [#/Vol] 3.40 10*3/uL 1.50 - 8 .00 K/uL [facility] Neutrophils/100 WBC (Bld) 72.9 % 31.0 - 76. 0 % [facility] Platelet mean volume (Bld) [Entitic vol] 8.6 fL 7.5 - 11.2 fL [facility] Platelets (Bld) [#/Vol] 58 10*3/uL Low 150 - 400 K/ uL [facility] RBC (Bld) [#/Vol] 1.80 10*6/uL Low [facility] WBC (Bld) [#/Vol] 4.7 10*3/uL 4.5 - 11.5 K/uL [facility] CREATINE KINASEon 01-10-2022 CK [Catalytic activity/Vol] 1073 U/L High [facility] D-DIMEROrdered By: Gabriella french on 01-10-2022 Fibrin D-dimer DDU (PPP) [Mass/Vol] >5000 High <230 ng/mL DDU [facility] Interpretation and review of laboratory results Abnormal [facility] EKG 12 LEAD - PERFORMon Diagnosis [facility] P wave Atrium by EKG 96 BPM [facility] P wave axis 43 degrees [facility] P-R Interval 144 ms [facility] Q-T interval 326 ms [facility] Q-T interval corrected 411 ms [facility] QRS axis 49 degrees [facility] QRS duration 92 ms [facility] T wave axis 24 degrees [facility] HAPTOGLOBINon 01-10-2022 Haptoglobin [Mass/Vol] mg/dL Low 36 - 220 mg/d L [facility] Interpretation and review of laboratory results Abnormal [facility] HEPATIC FUNCTION PANELon Albumin [Mass/Vol] 2.7 g/dL Low 3.4 - 5.1 g/dL [facility] ALP [Catalytic activity/Vol] 87 U/L [facility] ALT [Catalytic activity/Vol] 54 U/L High [facility] AST [Catalytic activity/Vol] 147 U/L High [facility] Bilirubin [Mass/Vol] 11.1 mg/dL High 0.1 - 1.5 mg/dL [facility] Bilirubin.direct [Mass/Vol] 2.60 mg/dL High 0.10 - 0 .30 mg/dL [facility] Protein [Mass/Vol] 6.0 g/dL Low 6.2 - 8.3 g/dL [facility] LDHOrdered By: Jarrod cruz on 01-10-2022 Interpretation and review of laboratory results Abnormal [facility] LDH [Catalytic activity/Vol] 378 U/L High [facility] Laboratory - Microbiology an d Antimicrobial susceptibilityon 01-10-2022 RSV RNA ANGIE+probe Ql (Unsp spec) Negative Neg ative [facility] Laboratory - Specimen inform ationon 01-10-2022 Specimen source Nom (Unsp spec) Negative Nega tive [facility] MAGNESIUMon 01-10-2022 Interpretation and review of laboratory results Normal [facility] Magnesium [Mass/Vol] 1.7 mg/dL 1.6 - 2.8 mg/dL [facility] MANUAL DIFF AND MORPHon 05-0 Acanthocytes LM Ql (Bld) Few [facility] [place] cells LM Ql (Bld) Moderate [facility] Cells Counted Total (Bld) [#] [facility] Macrocytes Ql (Bld) Slight [facility] Ovalocytes LM Ql (Bld) Few [facility] Schistocytes LM Ql (Bld) Few [facility] Acanthocytes LM Ql (Bld) Few [facility] [place] cells LM Ql (Bld) Few [facility] Cells Counted Total (Bld) [#] [facility] Macrocytes Ql (Bld) Slight [facility] Polychromasia LM Ql (Bld) Slight [facility] Schistocytes LM Ql (Bld) Few [facility] Target cells LM Ql (Bld) Few [facility] No Panel Informationon 01-10 [facility] Interpretation and review of laboratory results Abnormal [facility] No Panel InformationOrdered By: Meka Morales on 01-10-2022 [facility] PARTIAL THROMBOPLASTIN TIMEo n 01-10-2022 aPTT Coag (Bld) [Time] 29 s [facility] Interpretation and review of laboratory results Normal [facility] PROTHROMBIN TIME AND INRon 0 01-10-2022 INR Coag (PPP) [Relative time] 1.79 {INR} High [facility] Interpretation and review of laboratory results Abnormal [facility] PT Coag (PPP) [Time] 20.1 s High [facility] RED BLOOD CELL COMPONENTon 0 01-10-2022 BB Order Item Product status info to follow [facility] RESPIRATORY VIRUS PANEL, PCR on 01-10-2022 Adenovirus DNA ANGIE+probe Ql (Unsp spec) Negative Negative [facility] C. pneumoniae DNA ANGIE+probe Ql (Unsp spec) Negative Negative [facility] FLUAV H1 RNA ANGIE+probe Ql (Unsp spec) Negative Negative [facility] FLUAV H3 RNA ANGIE+probe Ql (Unsp spec) Negative Negative [facility] FLUAV RNA ANGIE+probe Ql (Unsp spec) Negative N egative [facility] FLUBV RNA ANGIE+probe Ql (Unsp spec) Negative N egative [facility] HCoV HKU1 RNA ANGIE+probe Ql (Unsp spec) Negative Negative [facility] HCoV NL63 RNA ANGIE+probe Ql (Unsp spec) Negative Negative [facility] hMPV RNA ANGIE+probe Ql (Unsp spec) Negative Ne gative [facility] Interpretation and review of laboratory results Normal [facility] M. pneumoniae DNA ANGIE+probe Ql (Unsp spec) Negative Negative [facility] Parainfluenza virus 1 RNA ANGIE+probe Ql (Unsp spec) Negativ e Negative [facility] Parainfluenza virus 2 RNA ANGIE+probe Ql (Unsp spec) Negativ e Negative [facility] Parainfluenza virus 3 RNA ANGIE+probe Ql (Unsp spec) Negativ e Negative [facility] Parainfluenza virus 4 RNA ANGIE+probe Ql (Unsp spec) Negativ e Negative [facility] Rhinovirus RNA ANGIE+probe Nom (Unsp spec) Negative Negative [facility] US HEP PORT SPLEN VEIN + DOP PLERon 01-10-2022 RADIOLOGY [facility] Radiology Study observation (narrative) [facility] SPLEENon 01-10-2022 RADIOLOGY [facility] Radiology Study observation (narrative) [facility] SPLEENOrdered By: Enrique Basurto on 01-10-2022 [facility] Work Phone: AMMONIAon 01-09-2022 Ammonia (P) [Moles/Vol] 74 umol/L High 11 - 35 umol /L [facility] Interpretation and review of laboratory results Abnormal [facility] AUTOIMMUNE MULTIPLEX PANELon 01-09-2022 Interpretation and review of laboratory results Normal [facility] Nuclear Ab IA Ql (S) Negative Negative [facility] Basic [facility] 2000 panelon 01-09-2022 Anion gap [Moles/Vol] 10 mmol/L [facility] Calcium [Mass/Vol] 8.1 mg/dL Low 8.4 - 10.4 mg/dL [facility] Chloride [Moles/Vol] 100 mmol/L 97 - 111 mmol/L [facility] CO2 [Moles/Vol] 27 mmol/L 21 - 30 mmol/L [facility] Creatinine [Mass/Vol] 0.41 mg/dL Low 0.80 - 1.30 mg /dL [facility] GFR/1.73 sq M.predicted MDRD (S/P/Bld) [Vol rate/Area] 143 mL/min/{1.73_m2} >=60 mL/min/1.73s qm [facility] Glucose [Mass/Vol] 142 mg/dL High 68 - 110 mg/dL [facility] Potassium [Moles/Vol] 4.0 mmol/L 3.3 - 5.3 mmol /L [facility] Sodium [Moles/Vol] 133 mmol/L Low 135 - 148 mmol/L [facility] Urea nitrogen [Mass/Vol] 7 mg/dL Low 8 - 22 mg/d L [facility] CBC WITH DIFFERENTIALOrdered By: Norris Billings on 01-09-2022 Basophils (Bld) [#/Vol] 0.03 10*3/uL 0.00 - 0.2 0 K/uL [facility] Basophils/100 WBC (Bld) 0.7 % <=1.9 [facility] Eosinophils (Bld) [#/Vol] 0.05 10*3/uL 0.00 - 0 .70 K/uL [facility] Eosinophils/100 WBC (Bld) 1.5 % 0.1 - 4.0 % [facility] Erythrocyte distribution width (RBC) [Ratio] 23.7 % High 11.5 - 14.5 % [facility] Hematocrit (Bld) [Volume fraction] 18.4 % Critically low 41.0 - 53.0 % [facility] Hemoglobin (Bld) [Mass/Vol] 6.4 g/dL Critically low 13.9 - 16.3 g/dL [facility] Interpretation and review of laboratory results Abnormal [facility] Lymphocytes (Bld) [#/Vol] 0.71 10*3/uL Low 1.00 - 4 .80 K/uL [facility] Lymphocytes/100 WBC (Bld) 19.4 % Low 24.0 - 44. 0 % [facility] MCH (RBC) [Entitic mass] 36.5 pg High 26.0 - 34.0 pg [facility] MCHC (RBC) [Mass/Vol] 34.9 g/dL 32.0 - 35.9 g/ dL [facility] MCV (RBC) [Entitic vol] 105 fL High 80 - 100 fL [facility] Monocyte distribution width Auto (Bld) [Entitic vol] [facility] Monocytes (Bld) [#/Vol] 0.50 10*3/uL 0.20 - 1.0 0 K/uL [facility] Monocytes/100 WBC (Bld) 13.7 % High 2.0 - 11.0 % [facility] Neutrophils (Bld) [#/Vol] 2.37 10*3/uL 1.50 - 8 .00 K/uL [facility] Neutrophils/100 WBC (Bld) 64.8 % 31.0 - 76. 0 % [facility] Platelet mean volume (Bld) [Entitic vol] 8.2 fL 7.5 - 11.2 fL [facility] Platelets (Bld) [#/Vol] 56 10*3/uL Low 150 - 400 K/ uL [facility] RBC (Bld) [#/Vol] 1.76 10*6/uL Low [facility] WBC (Bld) [#/Vol] 3.7 10*3/uL Low 4.5 - 11.5 K/uL [facility] CBC WITH DIFFERENTIALOrdered By: Mi Alcazar on 01-09-2022 Basophils (Bld) [#/Vol] 0.03 10*3/uL 0.00 - 0.2 0 K/uL [facility] Basophils/100 WBC (Bld) 0.9 % <=1.9 [facility] Eosinophils (Bld) [#/Vol] 0.05 10*3/uL 0.00 - 0 .70 K/uL [facility] Eosinophils/100 WBC (Bld) 1.4 % 0.1 - 4.0 % [facility] Erythrocyte distribution width (RBC) [Ratio] 23.3 % High 11.5 - 14.5 % [facility] Hematocrit (Bld) [Volume fraction] 19.0 % Critically low 41.0 - 53.0 % [facility] Hemoglobin (Bld) [Mass/Vol] 6.7 g/dL Critically low 13.9 - 16.3 g/dL [facility] Interpretation and review of laboratory results Abnormal [facility] Lymphocytes (Bld) [#/Vol] 0.76 10*3/uL Low 1.00 - 4 .80 K/uL [facility] Lymphocytes/100 WBC (Bld) 20.2 % Low 24.0 - 44. 0 % [facility] MCH (RBC) [Entitic mass] 36.4 pg High 26.0 - 34.0 pg [facility] MCHC (RBC) [Mass/Vol] 35.2 g/dL 32.0 - 35.9 g/ dL [facility] MCV (RBC) [Entitic vol] 103 fL High 80 - 100 fL [facility] Monocyte distribution width Auto (Bld) [Entitic vol] [facility] (Bld) [#/Vol] 0.47 10*3/uL 0.20 - 1.0 0 K/uL [facility] Monocytes/100 WBC (Bld) 12.5 % High 2.0 - 11.0 % [facility] Neutrophils (Bld) [#/Vol] 2.45 10*3/uL 1.50 - 8 .00 K/uL [facility] Neutrophils/100 WBC (Bld) 65.0 % 31.0 - 76. 0 % [facility] Platelet mean volume (Bld) [Entitic vol] 8.1 fL 7.5 - 11.2 fL [facility] Platelets (Bld) [#/Vol] 52 10*3/uL Low 150 - 400 K/ uL [facility] RBC (Bld) [#/Vol] 1.84 10*6/uL Low [facility] WBC (Bld) [#/Vol] 3.8 10*3/uL Low 4.5 - 11.5 K/uL [facility] CREATINE KINASEon 01-09-2022 CK [Catalytic activity/Vol] 892 U/L [facility] Interpretation and review of laboratory results Abnormal [facility] HEPATIC FUNCTION PANELon Albumin [Mass/Vol] 2.7 g/dL Low 3.4 - 5.1 g/dL [facility] ALP [Catalytic activity/Vol] 92 U/L [facility] ALT [Catalytic activity/Vol] 47 U/L High [facility] AST [Catalytic activity/Vol] 124 U/L High [facility] Bilirubin [Mass/Vol] 11.2 mg/dL High 0.1 - 1.5 mg/dL [facility] Bilirubin.direct [Mass/Vol] 2.50 mg/dL High 0.10 - 0 .30 mg/dL [facility] Protein [Mass/Vol] 6.0 g/dL Low 6.2 - 8.3 g/dL [facility] HIV 1 and 2 Ab and HIV 1 p24 Ag panel IAon 01-09-2022 HIV 1+2 Ab+HIV1 p24 Ag IA Ql Non-Reactive Non-R eactive [facility] Interpretation and review of laboratory results Normal [facility] Lipid 1996 panelon 2 Cholesterol [Mass/Vol] 341 mg/dL High <200 [facility] Cholesterol in HDL [Mass/Vol] 30 mg/dL Low >44 [facility] Cholesterol in LDL [Mass/Vol] 277 mg/dL High <111 [facility] Cholesterol in LDL/Cholester ol in HDL [Mass ratio] 9.23 {ratio} High <3.57 [facility] Cholesterol non HDL [Mass/Vol] 311 mg/dL High <130 [facility] Cholesterol.total/Cholestero l in HDL [Mass ratio] 11.37 {ratio} High <5.00 [facility] Interpretation and review of laboratory results Abnormal [facility] Triglyceride [Mass/Vol] 266 mg/dL High <151 [facility] MANUAL DIFF AND MORPHon Anisocytosis Ql (Bld) Moderate [facility] [place] cells LM Ql (Bld) Few [facility] Cells Counted Total (Bld) [#] [facility] Dacrocytes LM Ql (Bld) Few [facility] Macrocytes Ql (Bld) Slight [facility] Ovalocytes LM Ql (Bld) Moderate [facility] Polychromasia LM Ql (Bld) Slight [facility] Schistocytes LM Ql (Bld) Few [facility] Target cells LM Ql (Bld) Few [facility] Anisocytosis Ql (Bld) Marked [facility] [place] cells LM Ql (Bld) Few [facility] Cells Counted Total (Bld) [#] [facility] Macrocytes Ql (Bld) Slight [facility] Ovalocytes LM Ql (Bld) Many [facility] Polychromasia LM Ql (Bld) Slight [facility] RBC.hypochromic/100 RBC Auto (Bld) Slight [facility] Schistocytes LM Ql (Bld) Few [facility] Target cells LM Ql (Bld) Few [facility] No Panel InformationOrdered By: Norris Billings on 01-09-2022 [facility] No Panel InformationOrdered By: Mi Alcazar on 01-09-2022 [facility] No Panel Informationon 01-09 Interpretation and review of laboratory results Abnormal [facility] PROTHROMBIN TIME AND INRon 0 01-09-2022 INR Coag (PPP) [Relative time] 1.94 {INR} High [facility] Interpretation and review of laboratory results Abnormal [facility] PT Coag (PPP) [Time] 21.8 s High [facility] RED BLOOD CELL COMPONENTon 0 01-09-2022 BB Order Item Product status info to follow [facility] THYROXINE (T4), FREEon 01-09 Free T4 [Mass/Vol] 0.88 ng/dL 0.45 - 1.80 ng/dL [facility] Interpretation and review of laboratory results Normal [facility] XR ABDOMEN 1 VIEW APon 01-09 RADIOLOGY [facility] Study observation (narrative) [facility] XR ABDOMEN 1 VIEW APOrdered By: Ulysses Omalley on 01-09-2022 [facility] Work Phone: ACETAMINOPHENon 01-08-2022 Acetaminophen [Mass/Vol] ug/mL 10 - 20 ug/ mL [facility] Interpretation and review of laboratory results Normal [facility] ANTIBODY ID ELUTED-LAB ONLYo n 01-08-2022 Blood group antibody screen Elution Ql Negative [facility] Basic metabolic 2000 panelon 01-08-2022 Anion gap [Moles/Vol] 16 mmol/L [facility] Calcium [Mass/Vol] 8.1 mg/dL Low 8.4 - 10.4 mg/dL [facility] Chloride [Moles/Vol] 95 mmol/L Low 97 - 111 mmol/L [facility] CO2 [Moles/Vol] 22 mmol/L 21 - 30 mmol/L [facility] Creatinine [Mass/Vol] 0.44 mg/dL Low 0.80 - 1.30 mg /dL [facility] GFR/1.73 sq M.predicted MDRD (S/P/Bld) [Vol rate/Area] 140 mL/min/{1.73_m2} >=60 mL/min/1.73s qm [facility] Glucose [Mass/Vol] 91 mg/dL 68 - 110 mg/dL [facility] Potassium [Moles/Vol] 3.7 mmol/L 3.3 - 5.3 mmol /L [facility] Sodium [Moles/Vol] 129 mmol/L Low 135 - 148 mmol/L [facility] Urea nitrogen [Mass/Vol] 5 mg/dL Low 8 - 22 mg/d L [facility] CBC WITH DIFFERENTIALOrdered By: Fiorella Cochran on 01-08-2022 Basophils (Bld) [#/Vol] 0.04 10*3/uL 0.00 - 0.2 0 K/uL [facility] Basophils/100 WBC (Bld) 0.7 % <=1.9 [facility] Eosinophils (Bld) [#/Vol] 0.10 10*3/uL 0.00 - 0 .70 K/uL [facility] Eosinophils/100 WBC (Bld) 1.9 % 0.1 - 4.0 % [facility] Erythrocyte distribution wid th (RBC) [Ratio] 24.0 % High 11.5 - 14.5 % [facility] Hematocrit (Bld) [Volume fraction] 20.3 % Low 4 1.0 - 53.0 % [facility] Hemoglobin (Bld) [Mass/Vol] 7.3 g/dL Low 13.9 - 1 6.3 g/dL [facility] Interpretation and review of laboratory results Abnormal [facility] Lymphocytes (Bld) [#/Vol] 0.94 10*3/uL Low 1.00 - 4 .80 K/uL [facility] Lymphocytes/100 WBC (Bld) 17.5 % Low 24.0 - 44. 0 % [facility] MCH (RBC) [Entitic mass] 37.3 pg High 26.0 - 34.0 pg [facility] MCHC (RBC) [Mass/Vol] 35.7 g/dL 32.0 - 35.9 g/ dL [facility] MCV (RBC) [Entitic vol] 105 fL High 80 - 100 fL [facility] Monocyte distribution width Auto (Bld) [Entitic vol] [facility] Monocytes (Bld) [#/Vol] 0.92 10*3/uL 0.20 - 1.0 0 K/uL [facility] Monocytes/100 WBC (Bld) 16.9 % High 2.0 - 11.0 % [facility] Neutrophils (Bld) [#/Vol] 3.40 10*3/uL 1.50 - 8 .00 K/uL [facility] Neutrophils/100 WBC (Bld) 63.0 % 31.0 - 76. 0 % [facility] Platelet mean volume (Bld) [ Entitic vol] 8.4 fL 7.5 - 11.2 fL [facility] Platelets (Bld) [#/Vol] 52 10*3/uL Low 150 - 400 K/ uL [facility] RBC (Bld) [#/Vol] 1.94 10*6/uL Low [facility] WBC (Bld) [#/Vol] 5.4 10*3/uL 4.5 - 11.5 K/uL [facility] CBC WITH DIFFERENTIALOrdered By: Rafy Carr on 01-08-2022 Basophils (Bld) [#/Vol] 0.04 10*3/uL 0.00 - 0.2 0 K/uL [facility] Basophils/100 WBC (Bld) 0.8 % <=1.9 [facility] Eosinophils (Bld) [#/Vol] 0.08 10*3/uL 0.00 - 0 .70 K/uL [facility] Eosinophils/100 WBC (Bld) 1.4 % 0.1 - 4.0 % [facility] Erythrocyte distribution wid th (RBC) [Ratio] 24.2 % High 11.5 - 14.5 % [facility] Hematocrit (Bld) [Volume fraction] 20.1 % Low 4 1.0 - 53.0 % [facility] Hemoglobin (Bld) [Mass/Vol] 7.2 g/dL Low 13.9 - 1 6.3 g/dL [facility] Interpretation and review of laboratory results Abnormal [facility] Lymphocytes (Bld) [#/Vol] 1.01 10*3/uL 1.00 - 4 .80 K/uL [facility] Lymphocytes/100 WBC (Bld) 17.9 % Low 24.0 - 44. 0 % [facility] MCH (RBC) [Entitic mass] 36.9 pg High 26.0 - 34.0 pg [facility] MCHC (RBC) [Mass/Vol] 36.1 g/dL High 32.0 - 35.9 g/ dL [facility] MCV (RBC) [Entitic vol] 102 fL High 80 - 100 fL [facility] Monocyte distribution width Auto (Bld) [Entitic vol] [facility] Monocytes (Bld) [#/Vol] 0.87 10*3/uL 0.20 - 1.0 0 K/uL [facility] Monocytes/100 WBC (Bld) 15.4 % High 2.0 - 11.0 % [facility] Neutrophils (Bld) [#/Vol] 3.65 10*3/uL 1.50 - 8 .00 K/uL [facility] Neutrophils/100 WBC (Bld) 64.5 % 31.0 - 76. 0 % [facility] Platelet mean volume (Bld) [ Entitic vol] 8.4 fL 7.5 - 11.2 fL [facility] Platelets (Bld) [#/Vol] 51 10*3/uL Low 150 - 400 K/ uL [facility] RBC (Bld) [#/Vol] 1.96 10*6/uL Low [facility] WBC (Bld) [#/Vol] 5.7 10*3/uL 4.5 - 11.5 K/uL [facility] CREATINE KINASEon 01-08-2022 CK [Catalytic activity/Vol] 777 U/L High [facility] DIRECT ANTIGLOBULIN TESTon 0 01-08-2022 Direct antiglobulin test.com plement specific reagent Ql (RBC) Negative [facility] Direct antiglobulin test.IgG specific reagent (RBC) [Inter p] Positive [facility] Direct antiglobulin test.poly specific reagent Ql (RBC) Po sitive [facility] EKG 12 LEAD - PERFORMon Diagnosis [facility] P-R Interval 132 ms [facility] Q-T interval 422 ms [facility] Q-T interval corrected 474 ms [facility] QRS axis 44 degrees [facility] QRS duration 86 ms [facility] T wave axis 22 degrees [facility] FERRITINon 01-08-2022 Ferritin [Mass/Vol] 829.1 ng/mL High 11.5 - 300.0 ng /mL [facility] Interpretation and review of laboratory results Abnormal [facility] FOLIC ACIDon 01-08-2022 Folate [Mass/Vol] 13.9 ng/mL 5.9 - 24.7 ng/[facility]ation and review of laboratory results Normal [facility] GLUCOSE, FINGERSTICK-IN OFFI CEon 01-08-2022 Glucose [Mass/Vol] 94 mg/dL 68 - 110 mg/dL [facility] Interpretation and review of laboratory results Normal [facility] HAPTOGLOBINon 01-08-2022 Haptoglobin [Mass/Vol] mg/dL Low 36 - 220 mg/d L [facility] Interpretation and review of laboratory results Abnormal [facility] HCV Ab IA Qn (S)on HCV Ab Ql (S) Non-Reactive Nonreactive [facility] Interpretation and review of laboratory results Normal [facility] HEPATIC FUNCTION PANELon Albumin [Mass/Vol] 2.9 g/dL Low 3.4 - 5.1 g/dL [facility] ALP [Catalytic activity/Vol] 121 U/L [facility] ALT [Catalytic activity/Vol] 50 U/L High [facility] AST [Catalytic activity/Vol] 129 U/L High [facility] Bilirubin [Mass/Vol] 11.1 mg/dL High 0.1 - 1.5 mg/dL [facility] Bilirubin.direct [Mass/Vol] 2.40 mg/dL High 0.10 - 0 .30 mg/dL [facility] Protein [Mass/Vol] 6.4 g/dL 6.2 - 8.3 g/dL [facility] HEPATITIS A IGM ANTIBODYon 0 01-08-2022 HAV IgM IA Ql Non-Reactive Nonreactive [facility] Interpretation and review of laboratory results Normal [facility] HEPATITIS A TOTAL ANTIBODYon 01-08-2022 HAV Ab IA Ql (S) Reactive Abnormal Nonreactive [facility] Interpretation and review of laboratory results Abnormal [facility] HEPATITIS B CORE ANTIBODYon 01-08-2022 HBV core Ab Ql (S) Non-Reactive Nonreactive [facility] Interpretation and review of laboratory results Normal [facility] HEPATITIS B SURFACE ANTIBODY on 01-08-2022 HBV surface Ab IA Qn m[IU]/mL mIU/mL [facility] HEPATITIS B SURFACE ANTIGENo n 01-08-2022 HBV surface Ag Ql (S) Non-Reactive Non-Reactive [facility] Interpretation and review of laboratory results Normal [facility] IRON AND TIBCon 01-08-2022 Interpretation and review of laboratory results Abnormal [facility] Iron [Mass/Vol] 145 ug/dL 45 - 160 ug/dL [facility] Iron binding capacity [Mass/Vol] 214 ug/mL Low 250 - 410 ug/mL [facility] Iron saturation [Mass fraction] 68 % High 20 - 55 % [facility] Transferrin [Mass/Vol] 153 mg/dL Low 210 - 375 mg/ dL [facility] LACTIC ACIDOrdered By: Arnol kowalski on 01-08-2022 Interpretation and review of laboratory results Normal [facility] Lactate [Moles/Vol] 1.1 mmol/L 0.5 - 2.0 mmol/L [facility] LDHOrdered By: Yaritza staton on 01-08-2022 Interpretation and review of laboratory results Abnormal [facility] LDH [Catalytic activity/Vol] 369 U/L High [facility] MAGNESIUMon 01-08-2022 Interpretation and review of laboratory results Normal [facility] Magnesium [Mass/Vol] 1.7 mg/dL 1.6 - 2.8 mg/dL [facility] MANUAL DIFF AND MORPHon Anisocytosis Ql (Bld) Marked [facility] Cells Counted Total (Bld) [#] [facility] Macrocytes Ql (Bld) Slight [facility] Polychromasia LM Ql (Bld) Slight [facility] Acanthocytes LM Ql (Bld) Few [facility] [place] cells LM Ql (Bld) Few [facility] Cells Counted Total (Bld) [#] [facility] Macrocytes Ql (Bld) Slight [facility] Polychromasia LM Ql (Bld) Slight [facility] No Panel InformationOrdered By: Fiorella Cochran on 01-08-2022 [facility] No Panel Informationon 01-08 Interpretation and review of laboratory results Abnormal [facility] RADIOLOGY [facility] No Panel InformationOrdered By: Rafy Carr on 01-08-2022 [facility] No Panel InformationOrdered By: Crow Werner on 01-08-2022 [facility] Work Phone: PROTHROMBIN TIME AND INRon 0 01-08-2022 INR Coag (PPP) [Relative time] 1.78 {INR} High [facility] Interpretation and review of laboratory results Abnormal [facility] PT Coag (PPP) [Time] 20.0 s High [facility] RETICULOCYTE COUNTOrdered By : Deborah Che on 01-08-2022 Immature reticulocytes/Total reticulocytes (Bld) 0.56 % High [facility] Interpretation and review of laboratory results Abnormal [facility] Reticulocytes (Bld) [#/Vol] 0.10 10*3/uL High [facility] Reticulocytes/100 RBC (Bld) 5.2 % High 0.5 - 1. 5 % [facility] TSHon 01-08-2022 Interpretation and review of laboratory results Abnormal [facility] TSH Qn 6.627 m[IU]/L High [facility] US ASCITES SURVEY 4 QUADRANT Son 01-08-2022 RADIOLOGY [facility] Radiology Study observation (narrative) [facility] US ASCITES SURVEY 4 QUADRANT SOrdered By: Lisa Rizzo on 01-08-2022 [facility] Work Phone: LIVER/GALL BLADDER/PANCRE ASon 01-08-2022 [facility]OLOGY [facility] Study observation (narrative) [facility] VITAMIN B12 (CYANOCOBALAMIN) on 01-08-2022 Cobalamin (Vitamin B12) [Moles/Vol] 1299 pg/mL >300 [facility] Interpretation and review of laboratory results Normal [facility] XR ELBOW LEFT MINIMUM 3 VIEW Son 01-08-2022 Radiology Study observation (narrative) [facility] XR HUMERUS LEFTon 01-08-2022 Radiology Study observation (narrative) [facility] XR ORBITSon 01-08-2022 RADIOLOGY [facility] Radiology Study observation (narrative) [facility] XR ORBITSOrdered By: Philipp Salgado on 01-08-2022 [facility] Work Phone: BLOOD BANKOrdered By: Destiny Mark on 01-07-2022 ABO/Rh Interp Positive Invalid Interpre tation Code [facility] BB Subsection ABSC Gel Interp Negative (01/07/22 10:21 AM) Normal [facility] BB Subsection ABO/Rh Retype Interp Positive Invalid Interpretation Code [facility] BB Subsection CHEMISTRYOrdered By: Queryly SYSTEM on 01-07-2022 Lactate [Mass/Vol] 1.7 mmol/L Normal 0.5 - 2.2 mmol/L [facility] Remisol CK [Catalytic activity/Vol] 782 [iU]/d Invalid Interpretation Code 14 - 261 Int._Unit/L [facility] Remisol Comment on above: Result Comment: Crit ical Result verified by repeat analysis\Critical Result S_CK:[id number] Called to JASMEET LAZO AT by BETZAIDA DUNBAR and read back for confirmation at 01/07/2022 18:54:16 Lactate [Mass/Vol] 2.4 mmol/L High 0.5 - 2.2 mmol/L [facility] Remisol Myoglobin [Mass/Vol] 66 ng/mL Normal <=69ng/mL [facility] Remisol Lactate [Mass/Vol] 3.1 mmol/L High 0.5 - 2.2 mmol/L [facility] Remisol Albumin [Mass/Vol] 3.2 g/dL Low 3.3 - 5.0 gm/dL [facility] Rem[facility] Albumin/Globulin [Mass ratio] 0.9 {ratio} Low 1.1 - 2.2 [facility] ALP [Catalytic activity/Vol] 167 [iU]/d High 21 - 98 Int._Unit/L [facility] Rem[facility] ALT No additional P-5'-P [Catalytic activity/Vol] 54 [iU]/d High 6 - 46 Int._Unit/L [facility] Anion gap [Moles/Vol] 16 mmol/L Normal 6 - 16 mEq/L [facility] AST [Catalytic activity/Vol] 160 [iU]/d High 5 - 43 Int._Unit/L [facility] Bilirubin [Mass/Vol] 7.5 mg/dL High 0.0 - 1.1 mg/dL [facility] Remisol Bilirubin.direct [Mass/Vol] 2.0 mg/dL High 0.1 - 0.4 mg/dL [facility] Remisol Bilirubin.indirect [Mass or moles/Vol] 5.5 mg/dL High 0.1 - 0.9 mg/dL [facility] Calcium [Mass/Vol] 8.3 mg/dL Low 8.9 - 11.1 mg/dL [facility] Chloride [Moles/Vol] 97 mmol/L Low 101 - 111 mmol/ L [facility] CO2 [Moles/Vol] 23 mmol/L Normal 21 - 31 mmol/L [facility] Creatinine [Mass/Vol] mg/dL Low 0.5 - 1.3 mg/dL [facility] Ethanol [Mass/Vol] 107 mg/dL Invalid Inter pretation Code <=7mg/dL [facility] Remisol Comment on above: Result Comment: Crit ical Result verified by repeat analysis\Critical Result S_ETOH:107.0 Called to RODGER LAZARO AT by MARCIAL MORA And Read Back For Confirmation at: 01/07/2022 10:03:11 GFR/1.73 sq M.predicted among blacks MDRD (S/P/Bld) [Vol rate/Area] mL/min/1.73 m2 Normal >=59mL/min/1.73 m2 [facility] Chem S GFR/1.73 sq M.predicted among non-blacks MDRD (S/P/Bld) [Vol rate/Area] mL/min/1.73 m2 Normal >=59mL/min/1.73 m2 [facility] Chem S Globulin (S) [Mass/Vol] 3.6 g/dL Normal 1.4 - 4.0 gm/dL [facility] Remisol Glucose [Mass/Vol] 116 mg/dL Normal 55 - 199 mg/dL [facility] Remisol Lipase [Catalytic activity/Vol] 59 U/L High 13 - 58 unit/L [facility] Rem[facility] Potassium [Moles/Vol] 3.8 mmol/L Normal 3.5 - 5.3 mmol/L [facility] Rem[facility] Protein [Mass/Vol] 6.8 g/dL Normal 6.0 - 7.8 gm/dL [facility] Sodium [Moles/Vol] 132 mmol/L Low 135 - 145 mmol/L [facility] Remisol Troponin I.cardiac [Mass/Vol] 18.40 pg/mL Normal 15.90 - 38.40 pg/mL [facility] Urea nitrogen [Mass/Vol] 7 mg/dL Normal 5 - 21 mg/dL [facility] Remisol Urea nitrogen/Creatini ne [Mass ratio] Unable to Calculate Invalid Interpretation Code 10 - 20 [facility] Remisol COAGULATIONOrdered By: Mary Kay Christine on 01-07-2022 aPTT Coag (PPP) [Time] 34.3 s Normal 25.1 - 36.5 second(s) [facility] Auto Coag INR Coag (PPP) [Relative time] 1.6 {INR} Invalid Interpretation Code [facility] Auto Coag PT Coag (PPP) [Time] 19.2 s High 10.2 - 12.9 second(s) [facility] Auto Coag HEMATOLOGYOrdered By: Heladio Barnett on 01-07-2022 Anisocytosis Ql (Bld) Present (01/07/22 9:25 AM) Normal [facility] HemeManSS Erythrocyte distribution width (RBC) [Ratio] 17.2 % High 10.9 - 14.2 % [facility] HemeAutoSS Hematocrit (Bld) [Volume fraction] 19.3 % Low 37.7 - 49.0 % [facility]eAutoSS Hemoglobin (Bld) [Mass/Vol] 6.9 g/dL Invalid Interpretation Code 13.5 - 17.5 gm/dL [facility]eAutoSS Comment on above: Result Comment: Resu lts Called To Dr Nieto/ ER By Lali Barnett And Read Back For Confirmation On 01/07/2022 10:21:27 EDT Results Verified By Repeat Analysis Hypochromia Auto Ql (Bld) Present (01/07/22 9:25 AM) Normal [facility] HemeManSS Macrocytes Ql (Bld) Present (01/07/22 9:25 AM) Normal [facility] HemeManSS MCH (RBC) [Entitic mass] 38.9 pg High 27.0 - 34.0 pg [facility]eAutoSS MCHC (RBC) [Mass/Vol] 36.0 g/dL Normal 31.4 - 36.0 gm /dL [facility]eAuto[facility] MCV (RBC) [Entitic vol] 108.0 fL High 80.0 - 100.0 fL [facility]eAuto[facility] Morphology Parth (Bld) [Interp] See Morphology (01/07/22 9:25 AM) Normal [facility]eManSS Platelet mean volume (Bld) [Entitic vol] 8.8 fL Normal 6.4 - 10.8 fL [facility] HemeAutoSS Platelets (Bld) [#/Vol] 63.0 E9/L Low 150. 0 - 500.0 E9/L [facility]eAutoSS RBC (Bld) [#/Vol] 1.8 E12/L Low 4.3 - 5.9 E12/L [facility]Auto[facility] Target cells LM Ql (Bld) Present (01/07/22 9:25 AM) Normal [facility] HemeManSS WBC corrected for nucl RBC Auto (Bld) [#/Vol] 7.4 E9/L Normal 4.0 - 11.0 E9/L [facility] HemeAuto SS HEMATOLOGYOrdered By: SYSTEM SYSTEM on 01-07-2022 Basophils/100 WBC (Bld) 1.1 % Normal 0.0 - 2.0 % [facility] HemeAutoSS Basophils/Leukocytes Auto (B ld) [Pure # fraction] 0.1 E9/L Normal 0.0 - 0.2 E9/L [facility]eAutoSS Eosinophils/100 WBC (Bld) 1.8 % Normal 0.0 - 8.0 % [facility] HemeAutoSS Eosinophils/Leukocytes Auto (Bld) [Pure # fraction] 0.1 E9/L Normal 0.0 - 0.5 E9/L [facility] HemeAutoS S Lymphocytes/100 WBC (Bld) 40.2 % Normal 14.0 - 50. 0 % [facility] HemeAutoSS Lymphocytes/Leukocytes Auto (Bld) [Pure # fraction] 3.0 E9/L Normal 1.0 - 4.0 E9/L [facility] HemeAutoS S Monocytes/100 WBC (Bld) 12.1 % Normal 4.0 - 14.0 % [facility] HemeAutoSS Monocytes/Leukocytes Auto (B ld) [Pure # fraction] 0.9 E9/L Normal 0.2 - 1.0 E9/L [facility]eAutoSS Neutrophils/100 WBC (Bld) 44.8 % Normal 36.0 - 75. 0 % [facility] HemeAutoSS Neutrophils/Leukocytes Auto (Bld) [Pure # fraction] 3.3 E9/L Normal 2.0 - 7.5 E9/L [facility] HemeAutoS S HEMATOLOGYOrdered By: Bhavesh Bone on 01-07-2022 Path Review Anemia with polychro masia, target cells. Thrombocytopenia with no increase of schistocytes. No hypersegmented granulocytes seen.[id number] [id number] Invalid Interpretation Code [facility] HemeMan SS URINALYSISOrdered By: Mary Kay cordero on 01-07-2022 Bilirubin Ql (U) Negative (01/07/22 12:30 PM) Normal Negative [facility] UA Auto SS Clarity (U) Clear (01/07/22 12:30 PM) Normal Clear [facility] UA Auto SS Color (U) Yellow (01/07/22 12:30 PM) Normal Yellow [facility] UA Auto SS Crystals LM Ql (Urine sed) Present (01/07/22 12:30 PM) Normal [facility] UA Auto SS Epithelial cells.squamous LM.HPF (Urine sed) [#/Area] 0-2 /HPF Normal 0-2/HPF [facility] UA Auto SS Glucose Test strip (U) [Mass/Vol] Negative (01/07/22 12:30 PM) Normal Negative [facility] UA Auto SS Hemoglobin Ql (U) Negative (01/07/22 12:30 PM) Normal Negative [facility] UA Auto SS Ketones (U) [Mass/Vol] 2+ *ABN* (01/07/22 12:30 PM) Invalid Interpretation Code Negative [facility] UA Auto SS Comstock.plasma/Lithi um.RBC (Bld) [Mass ratio] 0-3 /HPF Normal 0-3/HPF [facility] UA Auto SS Mucus Ql (Urine sed) Trace (01/07/22 12:30 PM) Normal [facility] UA Auto SS Nitrite Ql (U) Negative (01/07/22 12:30 PM) Normal Negative [facility] UA Auto SS pH (U) 7.5 *NA* (01/07/22 12:30 PM) Invalid Interpretation Code 5.0 - 9.0 [facility] UA Auto SS Protein (U) [Mass/Vol] Negative (01/07/22 12:30 PM) Normal Negative [facility] UA Auto SS Specific gravity (U) [Rel density] 1.010 *NA* (01/07/22 12:30 PM) Invalid Interpretation Code 1.005 - 1.030 [facility] UA Auto SS UA Spec Desc Clean Catch (01/07/22 12:30 PM) Normal [facility] UA Auto SS Urobilinogen Qn (U) [id number] {Alexey'U}/dL Invalid Interpretation Code 0.0 - 1.0 EU/dL [facility] UA Auto SS WBC Auto Ql (U) Negative (01/07/22 12:30 PM) Normal Negative [facility] UA Auto SS WBC LM.HPF (Urine sed) [#/Area] 0-5 /HPF Normal 0-5/HPF [facility] UA Auto SS Vital Signs Date Time Vital Sign Value Performing Clinician Facility 07-24-2023 07:37-0500 Blood Pressure Location [facility] 07-24-2023 07:37-0500 Diastolic blood pressure 76 mm[Hg] Lisa [facility] 07-24-2023 07:37-0500 Heart rate 79 /min [facility] 07-24-2023 07:37-0500 Respiratory rate 16 /min [facility] Lopez [facility] 07-24-2023 07:37-0500 SaO2% (BldA) [Mass fraction] 100 % Lisa Lopez [facility] 07-24-2023 07:37-0500 Systolic blood pressure 132 mm[Hg] Lisa Lopez [facility] 06-19-2023 12:23-0400 Body temperature 97.88 [degF] Teddy Luna [facility] 06-19-2023 12:23-0400 Diastolic blood pressure 105 mm[Hg] Teddy Luna [facility] 06-19-2023 12:23-0400 Heart rate 70 /min Teddy Luna [facility] 06-19-2023 12:23-0400 Respiratory rate 18 /min Teddy Luna [facility] 06-19-2023 12:23-0400 SaO2% (BldA) [Mass fraction] 98 % Teddy Luna [facility] 06-19-2023 12:23-0400 Systolic blood pressure 165 mm[Hg] Teddy Luna [facility] 04-24-2023 11:00-0400 Body height 170.18 cm Jarrod Eddy Other [employer] Other 04-24-2023 11:00-0400 Body mass index (BMI) [Ratio] 26.94 kg/m2 Jarrod Nishantrer Other [employer] Other 04-24-2023 11:00-0400 Body temperature 97.4 [degF] Jarrod Nishantrer Other [employer] Other 04-24-2023 11:00-0400 Body weight 78.02 kg Jarrod Dillardrer Other [employer] Other 04-24-2023 11:00-0400 Diastolic blood pressure 70 mm[Hg] Jarrod Mateuszr Other [employer] Other 04-24-2023 11:00-0400 SaO2% (BldA) [Mass fraction] 99 % Jarrod Nunu Other [employer] Other 04-24-2023 11:00-0400 Systolic blood pressure 138 mm[Hg] Jarrodsanjiv Dillardrer Other [employer] Other 04-21-2023 09:38-0400 Body height 170.2 cm Tanvir Black MD Work Phone: [employer] 04-21-2023 09:38-0400 Body mass index (BMI) [Ratio] 27.08 kg/m2 Tanvir Black MD Work Phone: [employer] 04-21-2023 09:38-0400 Body temperature 97.7 [degF] Tanvir Black MD Work Phone: [employer] 04-21-2023 09:38-0400 Body weight 78.43 kg Tanvir Black MD Work Phone: [employer] 04-21-2023 09:38-0400 Diastolic blood pressure 67 mm[Hg] Tanvir Black MD [facility] 04-21-2023 09:38-0400 Heart rate 79 /min Tanvir Black MD Work Phone: [facility] 04-21-2023 09:38-0400 Respiratory rate 20 /min [facility] Black MD [facility] 04-21-2023 09:38-0400 SaO2% (BldA) [Mass fraction] 100 % Tanvir Black MD Work Phone: [facility] 04-21-2023 09:38-0400 Systolic blood pressure 136 mm[Hg] Tanvir Black MD Work Phone: [facility] 03-22-2023 21:05-0400 Diastolic blood pressure 80 mm[Hg] Martin Mary Ann [facility] 03-22-2023 21:05-0400 Heart rate 88 /min Martin Mary Ann [facility] 03-22-2023 21:05-0400 Hourly Rounding Martin Mary Ann [facility] 03-22-2023 21:05-0400 Promise to Return Martin Mary Ann [facility] 03-22-2023 21:05-0400 Respiratory rate 18 /min Martin Mary Ann [facility] 03-22-2023 21:05-0400 SaO2% (BldA) [Mass fraction] 100 % Martin Mary Ann [facility] 03-22-2023 21:05-0400 Systolic blood pressure 148 mm[Hg] Martin Mary Ann [facility] 03-22-2023 20:07-0400 Body temperature 97.7 [degF] Martin Mary Ann [facility] 03-22-2023 20:07-0400 Diastolic blood pressure 84 mm[Hg] Martin Mary Ann [facility] 03-22-2023 20:07-0400 Heart rate 92 /min Martin Mary Ann [facility] 03-22-2023 20:07-0400 Respiratory rate 18 /min Martin Mary Ann [facility] 03-22-2023 20:07-0400 SaO2% (BldA) [Mass fraction] 100 % Martin Mary Ann [facility] 03-22-2023 20:07-0400 Systolic blood pressure 151 mm[Hg] Martin Mary Ann [facility] 02-18-2023 09:11-0400 Diastolic blood pressure 70 mm[Hg] Brent Sanches [facility] 02-18-2023 09:11-0400 Heart rate 82 /min Brent Myron [facility] 02-18-2023 09:11-0400 Mean blood pressure 91 mm[Hg] Brent Myron [facility] 02-18-2023 09:11-0400 Respiratory rate 16 /min Brent Myron [facility] 02-18-2023 09:11-0400 SaO2% (BldA) [Mass fraction] 98 % Brent Myron [facility] 02-18-2023 09:11-0400 Systolic blood pressure 132 mm[Hg] Brent Myron [facility] 02-18-2023 07:45-0400 Body temperature 98.96 [degF] Brent Myron [facility] 02-18-2023 07:45-0400 Diastolic blood pressure 80 mm[Hg] Brent Sanches [facility] 02-18-2023 07:45-0400 Heart rate 95 /min Brent Sanches [facility] 02-18-2023 07:45-0400 Respiratory rate 16 /min Brent Sanches [facility] 02-18-2023 07:45-0400 SaO2% (BldA) [Mass fraction] 100 % Brent Sanches [facility] 02-18-2023 07:45-0400 Systolic blood pressure 153 mm[Hg] Brent Sanches [facility] 01-12-2023 09:49-0400 Body height 170.2 cm Tanvir Black MD Work Phone: [facility] 01-12-2023 09:49-0400 Body mass index (BMI) [Ratio] 27.28 kg/m2 Tanvir Black MD Work Phone: [employer] 01-12-2023 09:49-0400 Body temperature 96.6 [degF] Tanvir Black MD Work Phone: [employer] 01-12-2023 09:49-0400 Body weight 79.02 kg Tanvir Black MD Work Phone: [employer] 01-12-2023 09:49-0400 Diastolic blood pressure 56 mm[Hg] Tanvir Black MD Work Phone: [employer] 01-12-2023 09:49-0400 Heart rate 79 /min Tanvir Black MD Work Phone: [employer] 01-12-2023 09:49-0400 Respiratory rate 20 /min Tanvir Black MD Work Phone: [employer] 01-12-2023 09:49-0400 SaO2% (BldA) [Mass fraction] 100 % Tanvir Black MD Work Phone: [employer] 01-12-2023 09:49-0400 Systolic blood pressure 121 mm[Hg] Tanvir Black MD Work Phone: [employer] 01-12-2023 08:58-0400 Body mass index (BMI) [Ratio] 27.41 kg/m2 Marcello Ibanez MD Work Phone: [employer] 01-12-2023 08:58-0400 Body temperature 96.6 [degF] Marcello Ibanez MD Work Phone: [employer] 01-12-2023 08:58-0400 Body weight 79.38 kg Marcello Ibanez MD Work Phone: [employer] 01-12-2023 08:58-0400 Diastolic blood pressure 56 mm[Hg] Marcello Ibanez MD Work Phone: [employer] 01-12-2023 08:58-0400 Heart rate 79 /min Marcello Ibanez MD Work Phone: [employer] 01-12-2023 08:58-0400 Systolic blood pressure 121 mm[Hg] Marcello Ibanez MD Work Phone: [employer] 12-16-2022 09:49-0400 Body height 170.2 cm Dejuan Lechuga MD Work Phone: [employer] 12-16-2022 09:49-0400 Body mass index (BMI) [Ratio] 28.05 kg/m2 Dejuan Lechuga MD Work Phone: [employer] 12-16-2022 09:49-0400 Body weight 81.24 kg Dejuan Lechuga MD Work Phone: [employer] 12-16-2022 09:49-0400 Diastolic blood pressure 57 mm[Hg] Dejuan Lechuga MD Work Phone: [employer] 12-16-2022 09:49-0400 Heart rate 85 /min Dejuan Lechuga MD Work Phone: [employer] 12-16-2022 09:49-0400 SaO2% (BldA) [Mass fraction] 100 % Dejuan Lechuga MD Work Phone: [employer] 12-16-2022 09:49-0400 Systolic blood pressure 113 mm[Hg] Dejuan Lechuga MD Work Phone: [employer] 11-13-2022 11:23-0500 Body mass index (BMI) [Ratio] 26.63 kg/m2 Tanvir Black MD Work Phone: [employer] 11-13-2022 11:23-0500 Body temperature 98.6 [degF] Tanvir Black MD Work Phone: [employer] 11-13-2022 11:23-0500 Body weight 77.11 kg Tanvir Black MD Work Phone: [employer] 11-13-2022 11:23-0500 Diastolic blood pressure 62 mm[Hg] Tanvir Black MD Work Phone: [employer] 11-13-2022 11:23-0500 Heart rate 86 /min Tanvir Black MD Work Phone: [employer] 11-13-2022 11:23-0500 Respiratory rate 14 /min Tanvir Black MD Work Phone: [employer] 11-13-2022 11:23-0500 SaO2% (BldA) [Mass fraction] 100 % Tanvir Black MD Work Phone: [employer] 11-13-2022 11:23-0500 Systolic blood pressure 153 mm[Hg] Tanvir Black MD Work Phone: [employer] 10-27-2022 09:49-0500 Body mass index (BMI) [Ratio] 26.59 kg/m2 Marcello Ibanez MD Work Phone: [employer] 10-27-2022 09:49-0500 Body temperature 97.5 [degF] Marcello Ibanez MD Work Phone: [employer] 10-27-2022 09:49-0500 Body weight 77.02 kg Marcello Ibanez MD Work Phone: [employer] 10-27-2022 09:49-0500 Diastolic blood pressure 55 mm[Hg] Marcello Ibanez MD Work Phone: [employer] 10-27-2022 09:49-0500 Heart rate 84 /min Marcello Ibanez MD Work Phone: [employer] 10-27-2022 09:49-0500 SaO2% (BldA) [Mass fraction] 100 % Marcello Ibanez MD Work Phone: [employer] 10-27-2022 09:49-0500 Systolic blood pressure 128 mm[Hg] Marcello Ibanez MD Work Phone: [employer] 08-25-2022 13:44-0500 Body mass index (BMI) [Ratio] 26.78 kg/m2 Theo Burks MD Work Phone: [employer] 08-25-2022 13:44-0500 Body temperature 98.49 [degF] Theo Burks MD Work Phone: [employer] 08-25-2022 13:44-0500 Body weight 77.56 kg Theo Burks MD Work Phone: [employer] 08-25-2022 13:44-0500 Diastolic blood pressure 65 mm[Hg] Theo Burks MD Work Phone: [employer] 08-25-2022 13:44-0500 Heart rate 69 /min Theo Burks MD Work Phone: [employer] 08-25-2022 13:44-0500 Respiratory rate 18 /min Theo Burks MD Work Phone: [employer] 08-25-2022 13:44-0500 SaO2% (BldA) [Mass fraction] 99 % Theo Burks MD Work Phone: [employer] 08-25-2022 13:44-0500 Systolic blood pressure 132 mm[Hg] Theo Burks MD Work Phone: [employer] 08-25-2022 10:42-0500 Body mass index (BMI) [Ratio] 26.94 kg/m2 Abbey Alvarez MD Work Phone: [employer] 08-25-2022 10:42-0500 Body temperature 98.2 [degF] Abbey Alvarez MD Work Phone: [employer] 08-25-2022 10:42-0500 Body weight 78.02 kg Abbey Alvarez MD Work Phone: [employer] 08-25-2022 10:42-0500 Diastolic blood pressure 50 mm[Hg] Abbey Alvarez MD Work Phone: [employer] 08-25-2022 10:42-0500 Heart rate 82 /min Abbey Alvarez MD Work Phone: [employer] 08-25-2022 10:42-0500 Systolic blood pressure 129 mm[Hg] Abbey Alvarez MD Work Phone: [employer] 08-15-2022 15:50-0500 Heart rate 78 /min Ann-Marie Bray MD Work Phone: [employer] 08-15-2022 15:50-0500 Respiratory rate 14 /min Ann-Marie Bray MD Work Phone: [employer] 08-15-2022 15:50-0500 SaO2% (BldA) [Mass fraction] 98 % Ann-Marie Bray MD Work Phone: [employer] 08-15-2022 12:51-0500 Body mass index (BMI) [Ratio] 20.52 kg/m2 Ann-Marie Bray MD Work Phone: [employer] 08-15-2022 12:51-0500 Body temperature 98.49 [degF] Ann-Marie Bray MD Work Phone: [employer] 08-15-2022 12:51-0500 Body weight 59.42 kg Ann-Marie Bray MD Work Phone: [employer] 08-15-2022 12:51-0500 Diastolic blood pressure 70 mm[Hg] Ann-Marie Brya MD Work Phone: [employer] 08-15-2022 12:51-0500 Systolic blood pressure 147 mm[Hg] Ann-Marie Bray MD [facility]: [facility] 08-15-2022 10:16-0500 Body mass index (BMI) [Ratio] 26.72 kg/m2 Nenita Franco MD Work Phone: [employer] 08-15-2022 10:16-0500 Body temperature 98.6 [degF] Nenita Franco MD Work Phone: [employer] 08-15-2022 10:16-0500 Body weight 77.38 kg Nenita Franco MD Work Phone: [facility] 08-15-2022 10:16-0500 Diastolic blood pressure 56 mm[Hg] Nenita Franco MD Work Phone: [employer] 08-15-2022 10:16-0500 Heart rate 85 /min Nenita Franco MD Work Phone: [employer] 08-15-2022 10:16-0500 Respiratory rate 18 /min Nenita Franco MD Work Phone: [facility] 08-15-2022 10:16-0500 SaO2% (BldA) [Mass fraction] 100 % Nenita Franco MD Work Phone: [employer] 08-15-2022 10:16-0500 Systolic blood pressure 136 mm[Hg] Nenita Franco MD Work Phone: [employer] 08-14-2022 13:12-0500 Diastolic blood pressure 60 mm[Hg] Maria C Faustin APRN-[employer]PER[employer] Work Phone: [facility] 08-14-2022 13:12-0500 Systolic blood pressure 128 mm[Hg] Maria C Faustin APRN-[employer] Work Phone: [employer] 08-14-2022 13:10-0500 Body mass index (BMI) [Ratio] 27.1 kg/m2 Maria C Faustin APRN-[employer]PER[employer] Work Phone: [facility] 08-14-2022 13:10-0500 Body temperature 98.2 [degF] Maria C Faustin APRN-[employer]PER[employer] Work Phone: [facility] 08-14-2022 13:10-0500 Body weight 78.47 kg Maria C Faustin APRN-SUPER[employer] Work Phone: [facility] 08-14-2022 13:10-0500 Heart rate 84 /min Maria C Faustin APRN-SUPER[employer] Work Phone: [facility] 08-14-2022 11:51-0500 Body height 170.2 cm Tanvir Black MD Work Phone: [employer] 08-14-2022 11:51-0500 Body mass index (BMI) [Ratio] 26.78 kg/m2 Tanvir Black MD Work Phone: [employer] 08-14-2022 11:51-0500 Body temperature 99.19 [degF] Tanvir Black MD Work Phone: [employer] 08-14-2022 11:51-0500 Body weight 77.56 kg Tanvir Black MD Work Phone: [employer] 08-14-2022 11:51-0500 Diastolic blood pressure 60 mm[Hg] Tanvir Black MD Work Phone: [employer] 08-14-2022 11:51-0500 Heart rate 90 /min Tanvir Black MD Work Phone: [employer] 08-14-2022 11:51-0500 Respiratory rate 14 /min Tanvir Black MD Work Phone: [employer] 08-14-2022 11:51-0500 SaO2% (BldA) [Mass fraction] 100 % Tanvir Black MD Work Phone: [employer] 08-14-2022 11:51-0500 Systolic blood pressure 141 mm[Hg] Tanvir Black MD Work Phone: [employer] 05-06-2022 10:03-0400 Body height 170.2 cm Tanvir Black MD Work Phone: [employer] 05-06-2022 10:03-0400 Body mass index (BMI) [Ratio] 26.78 kg/m2 Tanvir Black MD Work Phone: [employer] 05-06-2022 10:03-0400 Body temperature 98.4 [degF] Tanvir Black MD Work Phone: [employer] 05-06-2022 10:03-0400 Body weight 77.56 kg Tanvir Black MD Work Phone: [employer] 05-06-2022 10:03-0400 Diastolic blood pressure 70 mm[Hg] Tanvir Black MD Work Phone: [employer] 05-06-2022 10:03-0400 Heart rate 75 /min Tanvir Black MD Work Phone: [employer] 05-06-2022 10:03-0400 Respiratory rate 16 /min Tanvir Black MD Work Phone: [employer] 05-06-2022 10:03-0400 SaO2% (BldA) [Mass fraction] 100 % Tanvir Black MD Work Phone: [employer] 05-06-2022 10:03-0400 Systolic blood pressure 137 mm[Hg] Tanvir Black MD Work Phone: [employer] 03-13-2022 11:39-0400 Body mass index (BMI) [Ratio] 25.84 kg/m2 Tanvir Black MD Work Phone: [employer] 03-13-2022 11:39-0400 Body temperature 98.49 [degF] Tanvir Black MD Work Phone: [employer] 03-13-2022 11:39-0400 Body weight 74.84 kg Tanvir Black MD Work Phone: [employer] 03-13-2022 11:39-0400 Diastolic blood pressure 69 mm[Hg] Tanvir Black MD Work Phone: [employer] 03-13-2022 11:39-0400 Heart rate 85 /min Tanvir Black MD Work Phone: [employer] 03-13-2022 11:39-0400 Respiratory rate 14 /min Tanvir Black MD Work Phone: [employer] 03-13-2022 11:39-0400 SaO2% (BldA) [Mass fraction] 100 % Tanvir Black MD [facility]: [facility] 03-13-2022 11:39-0400 Systolic blood pressure 137 mm[Hg] Tanvir Black MD Work Phone: [facility] 02-17-2022 16:07-0400 Diastolic blood pressure 76 mm[Hg] [facility] 02-17-2022 16:07-0400 Heart rate 84 /min [facility] 02-17-2022 16:07-0400 Mean blood pressure 94 mm[Hg] [facility] 02-17-2022 16:07-0400 Respiratory rate 18 /min [facility] 02-17-2022 16:07-0400 SaO2% (BldA) [Mass fraction] 98 % [facility] 02-17-2022 16:07-0400 Systolic blood pressure 129 mm[Hg] [facility] 02-17-2022 15:18-0400 Diastolic blood pressure 75 mm[Hg] [facility] 02-17-2022 15:18-0400 Heart rate 79 /min [facility] 02-17-2022 15:18-0400 Mean blood pressure 92 mm[Hg] [facility] 02-17-2022 15:18-0400 Respiratory rate 16 /min [facility] 02-17-2022 15:18-0400 SaO2% (BldA) [Mass fraction] 99 % [facility] 02-17-2022 15:18-0400 Systolic blood pressure 126 mm[Hg] [facility] 02-17-2022 14:58-0400 Diastolic blood pressure 76 mm[Hg] [facility] 02-17-2022 14:58-0400 Heart rate 79 /min [facility] 02-17-2022 14:58-0400 Mean blood pressure 99 mm[Hg] [facility] 02-17-2022 14:58-0400 Respiratory rate 18 /min [facility] 02-17-2022 14:58-0400 SaO2% (BldA) [Mass fraction] 100 % [facility] 02-17-2022 14:58-0400 Systolic blood pressure 144 mm[Hg] [facility] 02-17-2022 12:30-0400 Body temperature 98.24 [degF] [facility] 02-17-2022 12:30-0400 Heart rate 101 /min [facility] 02-17-2022 12:30-0400 Respiratory rate 18 /min [facility] 02-11-2022 10:22-0400 Body height 170.2 cm Tanvir Black MD Work Phone: [facility] 02-11-2022 10:22-0400 Body mass index (BMI) [Ratio] 26.16 kg/m2 Tanvir Black MD Work Phone: [facility] 02-11-2022 10:22-0400 Body temperature 98.2 [degF] Tanvir Black MD Work Phone: [employer] 02-11-2022 10:22-0400 Body weight 75.75 kg Tanvir Black MD Work Phone: [employer] 02-11-2022 10:22-0400 Diastolic blood pressure 81 mm[Hg] Tanvir Black MD Work Phone: [employer] 02-11-2022 10:22-0400 Heart rate 103 /min Tanvir Black MD Work Phone: [employer] 02-11-2022 10:22-0400 Respiratory rate 16 /min Tanvir Black MD Work Phone: [employer] 02-11-2022 10:22-0400 SaO2% (BldA) [Mass fraction] 100 % Tanvir Black MD Work Phone: [employer] 02-11-2022 10:22-0400 Systolic blood pressure 157 mm[Hg] Tanvir Black MD Work Phone: [employer] 01-17-2022 14:20-0400 Body temperature 98.29 [degF] Francisco Marino MD Work Phone: [employer] 01-17-2022 14:20-0400 Diastolic blood pressure 56 mm[Hg] Francisco Marino MD Work Phone: [employer] 01-17-2022 14:20-0400 Heart rate 83 /min Francisco Marino MD Work Phone: [employer] 01-17-2022 14:20-0400 Respiratory rate 18 /min Francisco Marino MD Work Phone: [employer] 01-17-2022 14:20-0400 SaO2% (BldA) [Mass fraction] 100 % Francisco Marino MD Work Phone: [employer] 01-17-2022 14:20-0400 Systolic blood pressure 125 mm[Hg] Francisco Marino MD Work Phone: [employer] 01-17-2022 06:00-0400 Body mass index (BMI) [Ratio] 22.77 kg/m2 Francisco [facility] 01-17-2022 06:00-0400 Body weight 65.95 kg Francisco Marino MD [facility] 01-10-2022 18:36-0400 Heart rate 96 /min Francisco Marino MD [facility] 01-08-2022 21:47-0400 Heart rate 76 /min Francisco Marino MD Work Phone: [facility] 01-08-2022 14:00-0400 Hourly Rounding Aldair Ila [facility] 01-08-2022 14:00-0400 Promise to Return Aldair Ila [facility] 01-08-2022 14:00-0400 SaO2% (BldA) [Mass fraction] 100 % Aldair Ila [facility] 01-08-2022 08:00-0400 Body height 170.2 cm Francisco Marino MD Work Phone: [facility] 01-08-2022 05:00-0400 Diastolic blood pressure 70 mm[Hg] Aldair Ila [facility] 01-08-2022 05:00-0400 Heart rate 87 /min Aldair Ila [facility] 01-08-2022 05:00-0400 Mean blood pressure 91 mm[Hg] Aldair Ila [facility] 01-08-2022 05:00-0400 Respiratory rate 18 /min Aldair Ila [facility] 01-08-2022 05:00-0400 Systolic blood pressure 134 mm[Hg] Aldair Ila [facility] 01-08-2022 04:00-0400 Body temperature 98.96 [degF] Aldair Ila [facility] 01-08-2022 04:00-0400 Diastolic blood pressure 74 mm[Hg] Aldair Ila [facility] 01-08-2022 04:00-0400 Heart rate 96 /min Aldair Ila [facility] 01-08-2022 04:00-0400 Mean blood pressure 90 mm[Hg] Aldair Ila [facility] 01-08-2022 04:00-0400 Respiratory rate 20 /min Aldair Ila [facility] 01-08-2022 04:00-0400 SaO2% (BldA) [Mass fraction] 97 % Aldair Ila [facility] 01-08-2022 04:00-0400 Systolic blood pressure 122 mm[Hg] Adlair Ila [facility] 01-08-2022 03:00-0400 Diastolic blood pressure 72 mm[Hg] Aldair Ila [facility] 01-08-2022 03:00-0400 Heart rate 80 /min Aldair Ila [facility] 01-08-2022 03:00-0400 SaO2% (BldA) [Mass fraction] 98 % Aldair Ila [facility] 01-08-2022 03:00-0400 Systolic blood pressure 126 mm[Hg] Aldair Ila [facility] 01-08-2022 00:00-0400 Body temperature 98.42 [degF] Aldair Ila [facility] 01-07-2022 20:30-0400 Body temperature 98.06 [degF] Aldair Ila [facility] 01-07-2022 20:00-0400 Blood Pressure Location Aldair Thorpe [facility] 01-07-2022 19:13-0400 Heart rate 112 /min Aldair Galiciaer [facility] 01-07-2022 19:00-0400 Blood Pressure Location Aldair Thorpe [facility] 01-07-2022 18:00-0400 Blood Pressure Location Aldair Thorpe [facility] 01-07-2022 17:04-0400 Heart rate 110 /min Aldairjaden Thorpe [facility] 01-07-2022 14:32-0400 [facility] Encounters Encounter Date Encounter Type Care Provider Facility Start: 08-26-2023 ambulatory Lisa Lopez Facil ity:[facility] Start: 08-06-2023 End: 08-07-2023 ambulatory Teddy Hitchcock Facility[place] Start: 08-06-2023 End: 08-06-2023 Patient encounter procedure Teddy Hitchcock [facility] Start: 08-03-2023 ambulatory Lisa Lopez Facil ity:[facility] Start: 07-27-2023 ambulatory SELF REFERRAL Facility: [facility] Start: 07-24-2023 End: 07-25-2023 ambulatory Lisa Lopez Facility:[facility] Start: 07-24-2023 End: 07-25-2023 ambulatory Lisa Lopez Facility:[facility] Start: 07-24-2023 End: 07-24-2023 Lab Drop off Lisa Lopez [facility] Start: 07-24-2023 End: 07-24-2023 Patient encounter procedure Lisa Lopez [facility] Start: 07-23-2023 End: 07-24-2023 ambulatory Teddy Hitchcock Facility:[facility] Start: 07-23-2023 End: 07-23-2023 Patient encounter procedure Teddy Hitchcock [facility] Start: 07-20-2023 E-mail encounter fro m caregiver Tanvir Black MD Work Phone: [facility] Start: 07-20-2023 Patient encounter procedure Tanvir Black MD Work Phone: [facility] Comment on above: Had to reschedule ap pointment Start: 07-16-2023 ambulatory SELF REFERRAL Facility: [facility] Start: 07-16-2023 End: 07-17-2023 ambulatory Teddy Hitchcock Facility:[facility] Start: 07-16-2023 End: 07-16-2023 Patient encounter procedure Teddy Hitchcock [facility] Start: 07-13-2023 Refill Marcello Ibanez MD Work Phone: [facility] Comment on above: Refill Start: 07-11-2023 Refill Tanvir Black MD Work Phone: [facility] Comment on above: Refill Start: 07-06-2023 End: 07-07-2023 Pre-admission assessment Teddy Hitchcock [facility] Start: 06-25-2023 End: 06-26-2023 ambulatory Teddy Hitchcock Facility:[facility] Start: 06-25-2023 End: 06-25-2023 Patient encounter procedure Teddy Hitchcock [facility] Start: 06-19-2023 End: 06-19-2023 Emergency department patient visit Teddy Luna Facility:[facility] Start: 06-19-2023 End: 06-19-2023 Emergency department patient visit Teddy Luna [facility] Start: 06-18-2023 End: 06-19-2023 ambulatory Teddy E. Mourany Facility:[facility] Start: 06-18-2023 End: 06-18-2023 Patient encounter procedure Teddy Trinidad. Dishay [facility] Start: 06-11-2023 End: 06-12-2023 ambulatory Teddy E. Mourany Facility:[facility] Start: 06-04-2023 End: 06-05-2023 ambulatory Teddy E. Mourany Facility:[facility] Start: 06-04-2023 End: 06-04-2023 Patient encounter procedure Teddy E. Mourany [facility] Start: 05-25-2023 End: 05-26-2023 ambulatory Teddy E. Mourany Facility:[facility] Start: 05-25-2023 End: 05-25-2023 Patient encounter procedure Teddy E. Mourany [facility] Start: 05-14-2023 End: 05-15-2023 ambulatory Teddy E. Mourany Facility:[facility] Start: 05-14-2023 End: 05-14-2023 Patient encounter procedure Teddy E. Mourany [facility] Start: 05-08-2023 End: 05-09-2023 ambulatory Teddy E. Mourany Facility:[facility] Start: 05-07-2023 End: 05-08-2023 ambulatory Teddy E. Mourany Facility:[facility] Start: 05-07-2023 End: 05-07-2023 Patient encounter procedure Teddy Hitchcock [facility] Start: 04-30-2023 End: 05-02-2023 ambulatory Teddy Hitchcock Facility:[facility] Start: 04-30-2023 End: 05-01-2023 Pre-admission assessment Teddy Hitchcock [facility] Start: 04-24-2023 End: 04-24-2023 ambulatory Jarrod Eddy Other [employer] Other Start: 04-24-2023 Office outpatient ne w 45 minutes Jarrod Eddy [facility] V[facility] Start: 04-24-2023 Refill Tanvir Black MD Work Phone: [facility] Comment on above: Refill Start: 04-23-2023 End: 04-24-2023 ambulatory Teddy Hitchcock Facility:[facility] Start: 04-23-2023 End: 04-23-2023 Patient encounter procedure Teddy Hitchcock [facility] Start: 04-22-2023 ambulatory Tanvir Black MD Work Phone: [facility] Comment on above: lab results Start: 04-22-2023 E-mail encounter fro m caregiver Tanvir Black MD Work Phone: [facility] Start: 04-21-2023 End: 04-22-2023 ambulatory UNKNOWN PROVIDER Facility:[facility] Start: 04-21-2023 Encounter for other specified special examinations [facility] Start: 04-21-2023 End: 04-21-2023 Patient encounter status Tanvir Black MD Work Phone: [facility] Start: 04-21-2023 End: 04-21-2023 Subsequent hospital visit by physician Monie Hernandez RN [facility] Comment on above: Dx: Multiple myeloma , remission status unspecified (HCC) (Primary Dx) 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) Start: 04-16-2023 End: 04-17-2023 ambulatory Teddy Rodarte Osbaldoyanickdamaso [place] Start: 04-16-2023 End: 04-16-2023 Patient encounter procedure Teddy Hitchcock [facility] Start: 04-13-2023 End: 04-14-2023 ambulatory Teddy Rodarte Osbaldoyanickdamaso Facility[place] Start: 04-13-2023 End: 04-13-2023 Patient encounter procedure Teddy Hitchcock [facility] Start: 03-30-2023 End: 03-31-2023 ambulatory Teddy Hitchcock Facility:[facility] Start: 03-22-2023 End: 03-22-2023 Emergency department patient visit Martin Reese Facility:[facility] Start: 03-22-2023 End: 03-22-2023 Emergency department patient visit Martin Reese [facility] Start: 03-22-2023 Letter encounter Tanvir Blcak MD Work Phone: [facility] Comment on above: Refill Start: 03-16-2023 End: 03-17-2023 ambulatory Teddy Rodarte Osbaldoyanickdamaso Facility:[facility] Start: 03-16-2023 End: 03-16-2023 Patient encounter procedure Teddy Hitchcock [facility] Start: 03-06-2023 Refill Theo wilder MD Work Phone: [facility] Comment on above: Refill Prior Authorization Start: 03-05-2023 End: 03-06-2023 ambulatory SELF REFERRAL Facility:[facility] Start: 03-05-2023 End: 03-05-2023 Patient encounter procedure Teddy Hitchcock [facility] Start: 02-27-2023 Telephone encounter Nighat rai SUPERVISOR TITLE-SUPER[employer] Work Phone: [facility] Comment on above: Left Message To Call Back Start: 02-18-2023 End: 02-18-2023 Emergency department patient visit Brent Sanches Facility:[facility] Start: 02-18-2023 End: 02-18-2023 Emergency department patient visit Brent Sanches [facility] Start: 02-09-2023 Refill Dejuan Lechuga MD Work Phone: [facility] Comment on above: Refill Start: 01-20-2023 ambulatory UNKNOWN PROVIDER Facili ty:[facility] Start: 01-12-2023 End: 01-13-2023 ambulatory UNKNOWN PROVIDER Facility:[facility] Start: 01-12-2023 End: 01-12-2023 ambulatory UNKNOWN PROVIDER Facility:[facility] Start: 01-12-2023 End: 01-12-2023 Subsequent hospital visit by physician Meka Lucas RN [facility] Comment on above: 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) Start: 01-12-2023 End: 01-12-2023 Office outpatient visit 25 minutes Marcello Ibanez MD Work Phone: [facility] Comment on above: Liver fibrosis (Prim tanner Dx); Alcohol use disorder in remission; Elevated liver enzymes; Jaundice; Body mass index (BMI) 27.0-27.9, adult Start: 12-20-2022 Letter encounter Theo bright MD Work Phone: [facility] Start: 12-16-2022 End: 12-16-2022 ambulatory UNKNOWN PROVIDER Facility:[facility] Start: 12-16-2022 End: 12-16-2022 Office outpatient visit 15 minutes Dejuan Lechuga MD Work Phone: [facility] Comment on above: Rib pain (Primary Dx ); Alcoholic cirrhosis of liver without ascites (HCC); Body mass index (BMI) 28.0-28.9, adult Start: 12-15-2022 End: 12-15-2022 Phys/qhp telephone evaluation 11-20 min Theo Burks MD Work Phone: [facility] Comment on above: Rib pain (Primary Dx ) Start: 12-15-2022 End: 12-19-2022 ambulatory UNKNOWN PROVIDER Facility:[facility] Start: 12-15-2022 Letter encounter Theo bright MD Work Phone: [facility] Start: 12-15-2022 Telephone encounter Theo Burks MD Work Phone: [facility] Start: 12-03-2022 Refill Marcello Ibanez MD Work Phone: [facility] Comment on above: Refill Start: 11-13-2022 End: 11-14-2022 ambulatory UNKNOWN PROVIDER Facility:[facility] Start: 11-13-2022 End: 11-13-2022 Subsequent hospital visit by physician Tanvir Black MD Work Phone: [facility] Comment on above: 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) Start: 10-27-2022 Letter encounter Theo bright MD Work Phone: [facility] Start: 10-27-2022 End: 11-03-2022 ambulatory UNKNOWN PROVIDER Facility:[facility] Start: 10-27-2022 End: 11-03-2022 Office outpatient visit 25 minutes Marcello Ibanez MD Work Phone: [facility] Comment on above: Alcoholic cirrhosis of liver without ascites (HCC) (Primary Dx); Nausea Alcoholic fatty live r (Primary Dx); Nausea; Hyperbilirubinemia; Alcoholic hepatitis, unspecified whether ascites present Alcoholic fatty live r (Primary Dx); Nausea; Hyperbilirubinemia; Alcoholic hepatitis, unspecified whether ascites present; Body mass index (BMI) 26.0-26.9, adult Start: 10-01-2022 Refill Abbey Love Work Phone: [facility] Comment on above: Refill I have a few questio ns Start: 09-21-2022 Letter encounter Theo bright MD Work Phone: [facility] Start: 09-20-2022 Telephone encounter Tanika lange RN Work Phone: [facility] Comment on above: Cancel Appointment Start: 09-16-2022 Orders Only Maria C Gricelda Cosme PRN-SUPER[employer] Work Phone: [facility] Start: 09-15-2022 Orders Only Samantha Stauffer SUPERVISOR TITLE-SUPER[employer]OR [employer] Work Phone: [facility] Start: 08-29-2022 End: 08-29-2022 ambulatory UNKNOWN PROVIDER Facility:[facility] Start: 08-29-2022 End: 08-29-2022 Phys/qhp telephone evaluation 5-10 min Theo Burks MD Work Phone: [facility] Comment on above: Cellulitis, unspecif ied cellulitis site (Primary Dx); Muscle soreness Start: 08-25-2022 End: 08-26-2022 Orders Only Abbey Alvarez MD Work Phone: [facility] Comment on above: Arrived Start: 08-25-2022 End: 08-26-2022 Office outpatient visit 25 minutes Abbey Alvarez MD Work Phone: [facility] Comment on above: Alcoholic hepatitis without ascites (Primary Dx); Alcoholic cirrhosis of liver without ascites (HCC); 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) Right leg swelling ( Primary Dx); Cellulitis, unspecified cellulitis site; Nausea; Body mass index (BMI) 26.0-26.9, adult Alcoholic hepatitis without ascites (Primary Dx); Alcoholic cirrhosis of liver without ascites (HCC); 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); Body mass index (BMI) 26.0-26.9, adult Start: 08-22-2022 ambulatory Jim Hill RN [facility] Comment on above: internal med request Start: 08-22-2022 E-mail encounter fro m caregiver Jim Hill RN [facility] Start: 08-21-2022 End: 08-22-2022 ambulatory UNKNOWN PROVIDER Facility:[facility] Start: 08-21-2022 Letter encounter [facility] lee [facility] Start: 08-16-2022 Orders Only Tanvir Black MD Work Phone: [facility] Start: 08-15-2022 End: 08-15-2022 Emergency department patient visit UNKNOWN PROVIDER Facility:[facility] Start: 08-15-2022 End: 08-15-2022 ambulatory Tanvir Black MD Work Phone: [facility] Comment on above: Severe pain Start: 08-15-2022 E-mail encounter fro m caregiver Tanvir Black MD Work Phone: [facility] Start: 08-15-2022 End: 08-15-2022 Emergency department patient visit Ann-Marie Bray MD Work Phone: [facility] Comment on above: Leg/thigh symptoms ( Pt states has infection in R leg x 4 days, seen yesterday for same) Start: 08-15-2022 End: 08-15-2022 Office outpatient new 30 minutes Nenita Franco MD Work Phone: [facility] Comment on above: Cellulitis, unspecif ied cellulitis site (Primary Dx); Body mass index (BMI) 26.0-26.9, adult Start: 08-14-2022 End: 08-15-2022 ambulatory UNKNOWN PROVIDER Facility:[facility] Start: 08-14-2022 End: 08-14-2022 ambulatory UNKNOWN PROVIDER Facility:[facility] Start: 08-14-2022 Letter encounter [facility] Start: 08-14-2022 End: 08-14-2022 ambulatory UNKNOWN PROVIDER Facility:[facility] Start: 08-14-2022 End: 08-14-2022 Office consultation new/estab patient 60 min Maria C Faustin SUPERVISOR TITLE-SUPER[employer]OR [employer] Work Phone: [facility] Comment on above: Alcoholic cirrhosis, unspecified whether ascites present (HCC) (Primary Dx); Iron deficiency anemia, unspecified iron deficiency anemia type; Alcoholic cirrhosis of liver without ascites (HCC); Body mass index (BMI) 27.0-27.9, adult Start: 08-14-2022 End: 08-14-2022 Subsequent hospital visit by physician Jasmyne Grimaldo RN [facility] Comment on above: Dx: Thrombocytopenia (HCC) (Primary Dx) Start: 08-14-2022 End: 08-14-2022 Office outpatient visit 40 minutes Tanvir Black MD Work Phone: [facility] Comment on above: 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) Start: 08-08-2022 ambulatory Tanvir Black MD Work Phone: [facility] Comment on above: Question Start: 08-08-2022 E-mail encounter fro m caregiver Tanvir Black MD Work Phone: [facility] Start: 05-06-2022 End: 05-06-2022 Office outpatient visit 40 minutes Tanvir Black MD Work Phone: [facility] Comment on above: 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) Start: 05-06-2022 End: 05-06-2022 Subsequent hospital visit by physician Leslie Canela RN Work Phone: [facility] Comment on above: 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) Start: 05-05-2022 Letter encounter [facility] Start: 03-13-2022 Letter encounter [facility] vo [facility] Start: 03-13-2022 End: 03-13-2022 Subsequent hospital visit by physician Rosita Le RN Work Phone: [facility] Comment on above: 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) Start: 03-13-2022 End: 03-13-2022 Office outpatient visit 40 minutes Tanvir Black MD Work Phone: [facility] Comment on above: 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) Start: 02-17-2022 End: 02-17-2022 Emergency department patient visit Christi Luo [facility] Start: 02-11-2022 Telephone encounter Kulwinder Zimmerman kiel PharmD Work Phone: [facility] Comment on above: Specialty Pharmacy R eferral (MMF referral- no PA needed ) Start: 02-11-2022 End: 02-11-2022 Office outpatient visit 5 minutes Cyn Hopper RN [facility] Comment on above: 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) Start: 02-11-2022 End: 02-11-2022 Subsequent hospital visit by physician Tanvir Black MD Work Phone: [facility] Comment on above: 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) Start: 01-21-2022 Telephone encounter Liseth King [facility] Comment on above: Prior Authorization Start: 01-08-2022 End: 01-17-2022 Evaluation and management of inpatient Francisco Marino MD Work Phone: Inpatient [facility]B Start: 01-07-2022 End: 01-08-2022 Evaluation and management of inpatient Aldair Thorpe [facility] Procedures Date Procedure Procedure Detail Performing Clinician Start: 04-21-2023 Hepatic function panel Tanvir Black MD Work Phone: Start: 04-21-2023 Lactate dehydrogenase ldh Tanvir Black MD Work Phone: Start: 01-12-2023 Blood count complete automated Marcello Ibanez MD Work Phone: Start: 01-12-2023 Hepatic function panel Marcello Ibanez MD Work Phone: Start: 11-13-2022 Alpha-fetoprotein serum Maria C Giller SUPERVISOR TITLE-SUPER[employer] Work Phone: Start: 11-13-2022 Antihuman globulin d irect each antiserum Tanvir Black MD Work Phone: Start: 08-25-2022 Assay of ferritin Camille Alvarez MD Work Phone: Start: 08-25-2022 Hepatic function panel Abbey Alvarez MD Work Phone: Start: 08-15-2022 Radiologic exam knee complete 4/more views Dante Marcelino MD Work Phone: Start: 08-14-2022 Urnls dip stick/tabl et rgnt auto w/o microscopy Tanvir Black MD Work Phone: Start: 08-14-2022 Hepatic function panel Tanvir Black MD Work Phone: Start: 08-14-2022 End: 08-14-2022 Lactate dehydrogenase ldh Tanvir Black MD Work Phone: Start: 05-06-2022 Hepatic function panel Tanvir Black MD Work Phone: Start: 05-06-2022 Lactate dehydrogenase ldh Tanvir Black MD Work Phone: Start: 03-13-2022 Hepatic function panel Tanvir Black MD Work Phone: Start: 03-13-2022 Lactate dehydrogenase ldh Tanvir Black MD Work Phone: Start: 02-11-2022 Hepatic function panel Tanvir Black MD Work Phone: Start: 02-11-2022 Lactate dehydrogenase ldh Tanvir Black MD Work Phone: Start: 01-17-2022 Hepatic function panel Ivy Chua MD Work Phone: Start: 01-17-2022 End: 01-17-2022 Lactate dehydrogenase ldh [facility] Work Phone: Start: 01-16-2022 Glucose blood reagen t strip Afua Umanzor MD Work Phone: Start: 01-16-2022 Glucose blood reagen t strip Afua Umanzor MD Work Phone: Start: 01-16-2022 Glucose blood reagen t strip Afua Umanzor MD Work Phone: Start: 01-16-2022 Glucose blood reagen t strip Afua Umanzor MD Work Phone: Start: 01-16-2022 Hepatic function panel Ivy Chua MD Work Phone: Start: 01-16-2022 Lactate dehydrogenase ldh Cjer Macon DO Work Phone: Start: 01-15-2022 Glucose blood reagen t strip Leon Santana MD Work Phone: Start: 01-15-2022 Glucose blood reagen t strip Leon Santana MD Work Phone: Start: 01-15-2022 Glucose blood reagen t strip Leon Santana MD Work Phone: Start: 01-15-2022 Hepatic function panel Ivy Chua MD Work Phone: Start: 01-15-2022 End: 01-15-2022 Lactate dehydrogenase ldh Cjer [facility] DO Work Phone: Start: 01-14-2022 Glucose blood reagen t strip Leon Santana MD Work Phone: Start: 01-14-2022 Glucose blood reagen t strip Leon Santana MD Work Phone: Start: 01-14-2022 Hepatic function panel Ivy Chua MD Work Phone: Start: 01-14-2022 End: 01-14-2022 Lactate dehydrogenase ldh Ariopher [facility] DO Work Phone: Start: 01-13-2022 Glucose blood reagen t strip Leon Santana MD Work Phone: Start: 01-13-2022 Glucose blood reagen t strip Leon Santana MD Work Phone: Start: 01-13-2022 Glucose blood reagen t strip Leon Santana MD Work Phone: Start: 01-13-2022 Hepatic function panel Ivy Chua MD Work Phone: Start: 01-13-2022 End: 01-13-2022 Lactate dehydrogenase ldh Ariopher [facility] DO Work Phone: Start: 01-12-2022 Glucose blood reagen t strip Leon Santana MD Work Phone: Start: 01-12-2022 Blood count smear mc rscp w/mnl difrntl wbc count Ivy Chua MD Work Phone: Start: 01-12-2022 Hepatic function panel Ivy Chua MD Work Phone: Start: 01-12-2022 End: 01-12-2022 Lactate dehydrogenase ldh Cjer [facility] DO Work Phone: Start: 01-11-2022 Glucose blood reagen t strip Leon Santana MD Work Phone: Start: 01-11-2022 Blood [facility] Work Phone: Start: 01-11-2022 Blood count smear mc rscp w/mnl difrntl wbc count Ivy Chua MD Work Phone: Start: 01-11-2022 Blood typing, ABO, R ho(D) and RBC antibody screening [facility] DO Work Phone: Start: 01-11-2022 Hepatic function panel Ivy Chua MD Work Phone: Start: 01-11-2022 Lactate dehydrogenase ldh Abhinav De La Vega DO Work Phone: Start: 01-10-2022 End: 01-10-2022 Assay of magnesium Abhinav Arellano am DO Work Phone: Start: 01-10-2022 Ecg routine ecg w/le ast 12 lds trcg only w/o i&r To Be Assigned Start: 01-10-2022 Dup-scan artl virgilio abdl/pel/scrot&/rpr orgn com Abhinav De La Vega DO Work Phone: Start: 01-10-2022 Clotting factor viii ahg 1 stage Abhinav Mooreningham DO Work Phone: Start: 01-10-2022 Us abdominal real ti me w/image limited Salnia Franks MD Work Phone: Start: 01-10-2022 Creatine kinase total F rocael Bety MULTANI Work Phone: Start: 01-10-2022 Hepatic function panel Ivy Chua MD Work Phone: Start: 01-10-2022 Iadna nos amplified probe tq each organism Darion Blanchard DO Work Phone: Start: 01-10-2022 RED BLOOD CELL COMPONENT Salina Franks MD Work Phone: Start: End: 01-09-2022 Assay of copper Ivy Chua MD Work Phone: Start: 01-09-2022 Assay of ammonia Francisco Marino MD Work Phone: Start: 01-09-2022 Culture bacterial bl ood aerobic w/id isolates Ivy Chua MD Work Phone: Start: 01-09-2022 Radiologic exam abdo men 1 view Ivy Chua MD Work Phone: Start: 01-09-2022 RED BLOOD CELL COMPONENT Graham Winston MD Work Phone: Start: 01-09-2022 Creatine kinase total S mariama Chua MD Work Phone: Start: 01-09-2022 Hepatic function panel Ivy Chua MD Work Phone: Start: 01-08-2022 Blood count smear mc rscp w/mnl difrntl wbc count Ivy Chua MD Work Phone: Start: 01-08-2022 Radex orbits complet e minimum 4 views Ivy Chua MD Work Phone: Start: 01-08-2022 End: 01-08-2022 Us abdominal real time w/image limited Ivy Chua MD Work Phone: Start: 01-08-2022 Drug screen analgesi cs non-opioid 1 or 2 Francisco Marino MD Work Phone: Start: 01-08-2022 Iadna hepatitis c 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 & 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 Ivy Chua MD Work Phone: Start: 01-08-2022 Lipoprotein dir noelle high density cholesterol Salina Franks MD Work Phone: Start: 01-08-2022 CT BODY IMAGE IMPORT(CHRISTIANO) Ivy Chua MD Work Phone: Start: 01-08-2022 XRAY CHEST IMAGE IMPORT(CHRISTIANO) Ivy Chua MD Work Phone: Start: 01-08-2022 End: 01-08-2022 Radex humerus minimum 2 views Robert Allen MD Start: 01-08-2022 End: 01-08-2022 Creatine kinase total Ivy Chua MD Work Phone: Start: 01-08-2022 Hepatic function panel Ivy Chua MD Work Phone: Start: 01-08-2022 Ecg routine ecg w/le ast 12 lds trcg only w/o i&r Darion Blanchard DO Work Phone: Jaw region structure (body structure) Aldair Galiciaer Plan of Treatment Date Care Activity Detail Author Start: 2034 Varicella-zoster vaccine (product) [facility] Start: 01-08-2027 Lipid panel [facility] Start: 10-01-2023 End: 10-01-2023 Patient encounter procedure 10/01/2023 8:30 AM EST Appointment [facility] [address] [place] [address] Tanvir Black MD [address] [place] [address] [facility] Start: 09-01-2023 ambulatory Ambulatory Facility:[facility] Start: 07-27-2023 End: 07-27-2023 Patient encounter procedure 07/27/2023 10:00 AM EST Office Visit [facility] [address] [place] [id number] Marcello Ibanez MD [address] [place] [address] [facility] Start: 07-20-2023 End: 07-20-2023 Patient encounter procedure [facility] Start: 06-07-2023 Influenza vaccination Influenza Vaccine (#1) [facility] Start: 05-08-2023 Influenza vaccination Influenza Vaccine (#1) [facility] Start: 04-21-2023 End: 04-21-2023 Patient encounter procedure [facility] Start: 03-20-2023 End: 03-20-2023 Patient encounter procedure [facility] Start: 03-03-2023 End: 03-03-2023 Telemedicine consultation with patient 03/03/2023 11:20 AM EDT Telemedicine [facility] [address] [id number] Nighat Mahmood, LIBAN-SUPER[employer] [address] [address] [facility] Start: 01-20-2023 End: 01-20-2023 Patient encounter procedure 01/20/2023 Appointment Radiology [facility] Start: 01-12-2023 End: 01-12-2023 Patient encounter procedure [facility] Start: 12-16-2022 End: 12-16-2022 Patient encounter procedure 12/16/2022 Office Visit Family Practice Dejuan Lechuga MD [address] [facility] [place] [address] [facility] Start: 12-15-2022 End: 12-15-2022 Telemedicine consultation with patient 12/15/2022 Telemedicine Family Practice Theo Burks MD [address] [facility] [place] [address] Arrived [facility] Comment on above: Arrived Start: 12-15-2022 End: 12-16-2023 XR Ribs - left Views and Chest PA XR RIBS LT UNILAT W/PA CHEST Imaging Routine Rib pain Expected: 12/15/2022, Expires: 12/16/2023 [facility] Work [facility]: Comment on above: Expected: 12/15/2022 , Expires: 12/16/2023 Start: 11-13-2022 End: 11-13-2022 Patient encounter procedure [facility] Start: 10-27-2022 End: 10-27-2023 RF Guidance for transjugular biopsy of Liver-- W contrast IV [facility] Comment on above: Expected: 10/27/2022 , Expires: 10/27/2023 Start: 10-27-2022 End: 10-27-2022 Patient encounter procedure 10/27/2022 Office Visit Gastroenterology Abbey Alvarez MD [address] [facility] [place] [address] [facility] Start: 09-22-2022 End: 09-22-2022 Admission to same day surgery center [facility] Comment on above: ESOPHAGOGASTRODUODEN OSCOPY ESOPHAGOGASTRODUODEN OSCOPY, GENERAL ANESTHESIA Start: 09-22-2022 End: 09-22-2022 Esophagogastroduodenoscopy ESOPHAGOGASTRODUODENOSCOPY Iron deficiency anemia, unspecified iron deficiency anemia type Alcoholic cirrhosis, unspecified whether ascites present (HCC) 09/22/2022 8:00 AM EST [facility] Start: 09-22-2022 End: 09-22-2022 ESOPHAGOGASTRODUODENOSCOPY, GENERAL ANESTHESIA ESOPHAGOGASTRODUODENOSCOPY, GENERAL ANESTHESIA Iron deficiency anemia, unspecified iron deficiency anemia type Alcoholic cirrhosis, unspecified whether ascites present (HCC) 09/22/2022 8:00 AM EST [facility] Start: 09-22-2022 Subsequent hospital visit by physician 09/22/2022 Hospital Encounter Gastroenterology Claire Johnson MD [address] [place] [address] [facility] Start: 09-19-2022 End: 09-19-2022 Patient encounter procedure 09/19/2022 Office Visit Gastroenterology Maria C Faustin, LIBAN-DAYAMI [address] [place] [address] [facility] Start: 09-16-2022 End: 10-17-2022 SARS-CoV-2 (COVID-19) RNA [Presence] in Unspecified specimen by ANGIE with probe detection NOVEL CORONAVIRUS (COVID-19) Lab Routine Encounter for laboratory testing for severe acute respiratory syndrome coronavirus 2 (SARS-CoV-2) Expected: 09/16/2022, Expires: 10/17/2022 [facility] Work Phone: Comment on above: Expected: 09/16/2022 , Expires: 10/17/2022 Start: 09-15-2022 End: 10-16-2022 SARS-CoV-2 (COVID-19) RNA [Presence] in Unspecified specimen by ANGIE with probe detection NOVEL CORONAVIRUS (COVID-19) Lab Routine Encounter for laboratory testing for severe acute respiratory syndrome coronavirus 2 (SARS-CoV-2) Expected: 09/15/2022, Expires: 10/16/2022 [facility] Work Phone: Comment on above: Expected: 09/15/2022 , Expires: 10/16/2022 Start: 09-08-2022 End: 10-26-2022 Basic metabolic 2000 panel - Serum or Plasma BASIC METABOLIC PANEL Lab Routine Alcoholic hepatitis without ascites Alcoholic cirrhosis of liver without ascites (HCC) 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) Expected: 09/08/2022, Expires: 10/26/2022 [facility] Comment on above: Expected: 09/08/2022 , Expires: 10/26/2022 Start: 08-29-2022 End: 08-29-2022 Patient encounter procedure 08/29/2022 Office Visit Family Practice Theo Burks MD [address] [facility] [place] [address] [facility] Start: 08-28-2022 End: 08-28-2022 Telemedicine consultation with patient 08/28/2022 Telemedicine Gastroenterology Maria C Faustin, LIBAN-DAYAMI [address] [facility] [place] [address] [facility] Start: 08-27-2022 End: 09-12-2022 Assay of ferritin FERRITIN Lab Routine Alcoholic hepatitis without ascites Alcoholic cirrhosis of liver without ascites (HCC) 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) Expected: 08/27/2022, Expires: 09/12/2022 [facility] Comment on above: Expected: 08/27/2022 , Expires: 09/12/2022 Start: 08-27-2022 End: 09-12-2022 Assay of gammaglobulin iga igd igg igm each IMMUNOGLOBULIN G Lab Routine Alcoholic hepatitis without ascites Alcoholic cirrhosis of liver without ascites (HCC) 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) Expected: 08/27/2022, Expires: 09/12/2022 [facility] Comment on above: Expected: 08/27/2022 , Expires: 09/12/2022 Start: 08-27-2022 End: 09-12-2022 Assay of iron IRON AND TIBC Lab Routine Al coholic hepatitis without ascites Alcoholic cirrhosis of liver without ascites (HCC) 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) Expected: 08/27/2022, Expires: 09/12/2022 [facility] Comment on above: Expected: 08/27/2022 , Expires: 09/12/2022 Start: 08-27-2022 End: 09-12-2022 Hfe hemochromatosis gene anal common variants HEMOCHROMATOSIS DNA TEST Lab Routine Alcoholic hepatitis without ascites Alcoholic cirrhosis of liver without ascites (HCC) 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) Expected: 08/27/2022, Expires: 09/12/2022 [facility] Comment on above: Expected: 08/27/2022 , Expires: 09/12/2022 Start: 08-27-2022 End: 09-12-2022 Smooth muscle antibody measurement SMOOTH MUSC ATB SCRN & TITR Lab Routine Alcoholic hepatitis without ascites Alcoholic cirrhosis of liver without ascites (HCC) 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) Expected: 08/27/2022, Expires: 09/12/2022 [facility] Comment on above: Expected: 08/27/2022 , Expires: 09/12/2022 Start: 08-27-2022 End: 09-12-2022 Unlisted chemistry procedure MISCELLANEOUS SEND OUT TEST Lab Routine Alcoholic hepatitis without ascites Alcoholic cirrhosis of liver without ascites (HCC) 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) Expected: 08/27/2022, Expires: 09/12/2022 [facility] Work Phone: Comment on above: Expected: 08/27/2022 , Expires: 09/12/2022 Start: 08-25-2022 End: 09-12-2022 Prothrombin time PROTHROMBIN TIME AND INR Lab Lab Add-On Alcoholic cirrhosis of liver without ascites (HCC) Expected: 08/25/2022, Expires: 09/12/2022 [facility] Work Phone: Comment on above: Expected: 08/25/2022 , Expires: 09/12/2022 Start: 08-25-2022 End: 08-25-2022 Patient encounter procedure [facility] Comment on above: Arrived Start: 08-19-2022 End: 08-19-2022 Professional / ancillary services management 08/19/2022 Ancillary Procedure Radiology [facility] [place] [facility] Start: 08-19-2022 End: 08-19-2022 Professional / ancillary services management 08/19/2022 Ancillary Procedure Radiology [facility] [place] [facility] Start: 08-14-2022 End: 08-14-2023 US Abdomen RUQ US LIVER/GALL BLADDER/PANCREAS Imaging Routine Iron deficiency anemia, unspecified iron deficiency anemia type Alcoholic cirrhosis, unspecified whether ascites present (HCC) Expected: 08/14/2022, Expires: 08/14/2023 [facility] Work Phone: Comment on above: Expected: 08/14/2022 , Expires: 08/14/2023 Start: 08-14-2022 End: 08-14-2023 US.doppler Portal vein and Hepatic vein US HEP PORT SPLEN VEIN + DOPPLER Imaging Routine Iron deficiency anemia, unspecified iron deficiency anemia type Alcoholic cirrhosis, unspecified whether ascites present (HCC) Expected: 08/14/2022, Expires: 08/14/2023 [facility] Comment on above: Expected: 08/14/2022 , Expires: 08/14/2023 Start: 08-14-2022 End: 08-14-2022 Patient encounter procedure [facility] Start: 07-11-2022 Hepatocellular Carci noma Screening Hepatocellular Carcinoma Screening [facility] Start: [facility] Start: 06-07-2022 Influenza vaccination Influenza Vacc ine (#1) [facility] Start: 05-06-2022 Subsequent hospital visit by physician 05/06/2022 Hospital Encounter Oncology Medical Tanvir Black MD [address] [place] [address] [place] [address] Subj: Appointment Reminder [facility] Comment on above: Subj: Appointment Re minder Start: 05-06-2022 End: 05-06-2022 Patient encounter procedure [facility] Non Invasive Cardiology Start: 04-07-2022 Influenza vaccination Influenza Vacc ine (#1) [facility] Start: 03-13-2022 End: 03-13-2022 Patient encounter procedure 03/13/2022 Appointment Oncology Medical [facility] Start: 03-13-2022 End: 03-13-2022 Patient encounter procedure 03/13/2022 Appointment Oncology Medical Tanvir Black MD [address] [address] [facility] Start: 02-11-2022 End: 02-11-2022 ambulatory [facility] Start: 02-11-2022 End: 02-11-2022 Patient encounter procedure 02/11/2022 Appointment Oncology Medical Tanvir Black MD [address] [place] [place] [address] [facility] Start: 01-23-2022 End: 01-23-2022 ambulatory [facility] Start: 01-23-2022 End: 01-23-2022 Patient encounter procedure 01/23/2022 Office Visit Orthopedics Ronen Welch MD [address] [facility] [place] [address] [facility] Start: 01-20-2022 End: 01-20-2022 ambulatory [facility] Start: 02-05-2021 COVID-19 Vaccine (2 - Moderna risk series) COVID-19 Vaccine (2 - Moderna risk series) [facility] Start: 02-05-2021 COVID-19 Vaccine (3 - Moderna risk series) COVID-19 Vaccine (3 - Moderna risk series) [facility] Start: 2011 HPV Vaccine (optiona l start 27-45 years) HPV Vaccine (optional start 27-45 years) [facility] Start: 2003 Shingles (RZV) Vacci ne (1 of 2) Shingles (RZV) Vaccine (1 of 2) [facility] Start: 2002 Tetanus + diphtheria + acellular pertussis vaccine (product) [facility] Start: 1990 Pneumococcal vaccination Pneumococcal Vaccine(s) (1 - PCV) [facility] Start: 1989 COVID-[facility] (#1) [facility] Start: 1989 COVID-19 Vaccine (1) COVID-19 Vaccin e (1) [facility] Start: 1989 [facility] Start: 03-18-1985 COVID-19 Vaccine (#1) COVID-19 Vacci ne (#1) [facility] End: 08-14-2023 Alpha-fetoprotein serum ALPHA FETOPROTEIN TUMOR MARKER Lab Routine Iron deficiency anemia, unspecified iron deficiency anemia type Alcoholic cirrhosis, unspecified whether ascites present (HCC) 1 Occurrences starting 08/14/2022 until 08/14/2023 [facility] Comment on above: 1 Occurrences starti ng 08/14/2022 until 08/14/2023 End: 03-13-2023 Assay of blood/uric acid URIC ACID Lab STAT 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 for 12 Occurrences starting 03/13/2022 until 03/13/2023, 1 completed [facility] Comment on above: monthly for 12 Occur rences starting 03/13/2022 until 03/13/2023, 1 completed Assay of gammaglobul in iga igd igg igm each IMMUNOGLOBULIN G Lab Routine Alcoholic hepatitis without ascites Alcoholic cirrhosis of liver without ascites (HCC) 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) 08/25/2022 12:41 PM EST [facility] Assay of haptoglobin quantitative [facility] Work Phone: End: 03-13-2023 Assay of haptoglobin quantitative HAPTOGLOBIN Lab STAT 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) every month for 12 Occurrences starting 03/13/2022 until 03/13/2023, 1 completed [facility] Comment on above: every month for 12 O ccurrences starting 03/13/2022 until 03/13/2023, 1 completed End: 11-13-2023 Assay of haptoglobin quantitative HAPTOGLOBIN Lab STAT 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) 6 Occurrences starting 11/12/2022 until 11/13/2023, 1 completed [facility] Comment on above: 6 Occurrences starti ng 11/12/2022 until 11/13/2023, 1 completed Bacteria identified in Urine by Culture URINE CULTURE Microbiology Routine Dysuria 08/14/2022 12:17 PM EST [facility] Work Phone: Basic metabolic 2000 panel - Serum or Plasma [facility] End: 03-13-2023 Basic metabolic 2000 panel - Serum or Plasma BASIC METABOLIC PANEL Lab STAT 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 for 12 Occurrences starting 03/13/2022 until 03/13/2023, 1 completed [facility] Comment on above: monthly for 12 Occur rences starting 03/13/2022 until 03/13/2023, 1 completed End: 08-14-2023 Basic metabolic 2000 panel - Serum or Plasma BASIC METABOLIC PANEL Lab Routine Iron deficiency anemia, unspecified iron deficiency anemia type Alcoholic cirrhosis, unspecified whether ascites present (HCC) 1 Occurrences starting 08/14/2022 until 08/14/2023 [facility] Comment on above: 1 Occurrences starti ng 08/14/2022 until 08/14/2023 Basic metabolic 2000 panel - Serum or Plasma BASIC METABOLIC PANEL Lab Routine Nausea Ordered: 10/27/2022 [facility] Comment on above: Ordered: 10/27/2022 End: 11-13-2023 Basic metabolic 2000 panel - Serum or Plasma BASIC METABOLIC PANEL Lab STAT 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) 6 Occurrences starting 11/12/2022 until 11/13/2023, 1 completed [facility] Comment on above: 6 Occurrences starti ng 11/12/2022 until 11/13/2023, 1 completed End: 11-13-2023 Blood count reticulocyte automated RETICULOCYTE COUNT Lab STAT 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) 6 Occurrences starting 11/12/2022 until 11/13/2023, 1 completed [facility] Comment on above: 6 Occurrences starti ng 11/12/2022 until 11/13/2023, 1 completed CBC panel - Blood by Automated count [facility] End: 08-14-2023 CBC panel - Blood by Automated count COMPLETE BLOOD COUNT Lab Routine Iron deficiency anemia, unspecified iron deficiency anemia type Alcoholic cirrhosis, unspecified whether ascites present (HCC) 1 Occurrences starting 08/14/2022 until 08/14/2023 [facility] Comment on above: 1 Occurrences starti ng 08/14/2022 until 08/14/2023 CBC panel - Blood by Automated count COMPLETE BLOOD COUNT Lab Routine Nausea Ordered: 10/27/2022 [facility] Comment on above: Ordered: 10/27/2022 End: 03-13-2023 CBC W Auto Differential panel - Blood COMPLETE BLOOD COUNT W/DIFF Lab STAT 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 for 12 Occurrences starting 03/13/2022 until 03/13/2023, 1 completed [facility] Work Phone: Comment on above: monthly for 12 Occur rences starting 03/13/2022 until 03/13/2023, 1 completed End: 11-13-2023 CBC W Auto Differential panel - Blood COMPLETE BLOOD COUNT W/DIFF Lab STAT 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) 6 Occurrences starting 11/12/2022 until 11/13/2023, 1 completed [facility] Work Phone: Comment on above: 6 Occurrences starti ng 11/12/2022 until 11/13/2023, 1 completed Creatine kinase total CREATINE K INASE Lab Routine Muscle soreness Ordered: 08/29/2022 [facility] Work Phone: Comment on above: Ordered: 08/29/2022 ESOPHAGOGASTRODUODEN OSCOPY, GENERAL ANESTHESIA [facility] Hepatic function panel [facility] Work Phone: End: Hepatic function panel HEPATIC FUNCTION PANEL Lab STAT 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 for 12 Occurrences starting 03/13/2022 until 03/13/2023, 1 completed [facility] Comment on above: monthly for 12 Occur rences starting 03/13/2022 until 03/13/2023, 1 completed End: 08-14-2023 Hepatic function panel HEPATIC FUNCTION PANEL Lab Routine Iron deficiency anemia, unspecified iron deficiency anemia type Alcoholic cirrhosis, unspecified whether ascites present (HCC) 1 Occurrences starting 08/14/2022 until 08/14/2023 [facility] Comment on above: 1 Occurrences starti ng 08/14/2022 until 08/14/2023 Hepatic function panel HEPATIC F UNCTION PANEL Lab Routine Nausea Ordered: 10/27/2022 [facility] Comment on above: Ordered: 10/27/2022 End: 11-13-2023 Hepatic function panel HEPATIC FUNCTION PANEL Lab S TAT 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) 6 Occurrences starting 11/12/2022 until 11/13/2023, 1 completed [facility] Comment on above: 6 Occurrences starti ng 11/12/2022 until 11/13/2023, 1 completed Hfe hemochromatosis gene anal common variants HEMOCHROMATOSIS DNA TEST Lab Routine Alcoholic hepatitis without ascites Alcoholic cirrhosis of liver without ascites (HCC) 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) 08/25/2022 12:41 PM [facility] Hfe hemochromatosis gene anal common variants HEMOCHROMATOSIS DNA TEST Lab Routine Increased storage iron 11/13/2022 11:58 AM EST [facility] Lactate dehydrogenase ldh [facility] End: 03-13-2023 Lactate dehydrogenase ldh LDH Lab STAT Hemolytic anemi a due to warm antibody (HCC) monthly for 12 Occurrences starting 03/13/2022 until 03/13/2023, 1 completed [facility] Comment on above: monthly for 12 Occur rences starting 03/13/2022 until 03/13/2023, 1 completed End: 11-13-2023 Lactate dehydrogenase ldh LDH Lab STAT Hemolytic anemi a due to warm antibody (HCC) 6 Occurrences starting 11/12/2022 until 11/13/2023, 1 completed [facility] Comment on above: 6 Occurrences starti ng 11/12/2022 until 11/13/2023, 1 completed [facility] End: 08-14-2023 Prothrombin time PROTHROMBIN TIME AND INR Lab Routine Iron deficiency anemia, unspecified iron deficiency anemia type Alcoholic cirrhosis, unspecified whether ascites present (HCC) 1 Occurrences starting 08/14/2022 until 08/14/2023 [facility] Comment on above: 1 Occurrences starti ng 08/14/2022 until 08/14/2023 Prothrombin time PROTHROMBIN IVAN E AND INR Lab Routine Nausea Ordered: 10/27/2022 [facility] Work Phone: Comment on above: Ordered: 10/27/2022 Smooth muscle antibody measureme nt SMOOTH MUSC ATB SCRN & TITR Lab Routine Alcoholic hepatitis without ascites Alcoholic cirrhosis of liver without ascites (HCC) 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) 08/25/2022 12:41 PM [facility] Unlisted chemistry procedure MIS CELLANEOUS SEND OUT TEST Lab Routine Alcoholic hepatitis without ascites Alcoholic cirrhosis of liver without ascites (HCC) 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) 08/25/2022 12:41 PM [facility] Immunizations Immunization Date Immunization Notes Care Provider [facility] 10-27-2022 hepatitis B vaccine, unspecified formulation Marcello Ibanez MD Work Phone: [facility] 08-14-2022 hepatitis B vaccine, adult dosage Maria C Faustin [employer] Work Phone: [facility] 01-08-2021 Moderna Monovalent ( 12+ yrs) COVID-19 vaccine, mRNA, spike protein, LNP, PF, 100 mcg/0.5 mL (AGF=325) Marcello Ibanez MD Work Phone: [facility] 12-11-2020 Moderna Monovalent ( 12+ yrs) COVID-19 vaccine, mRNA, spike protein, LNP, PF, 100 mcg/0.5 mL (EVX=988) Marcello Ibanez MD Work Phone: [facility] Payers Date Payer Category Payer Unknown [id number] 2021 Unknown [id number] 2. [id number] 1984 Unknown [id number] 2.16. 840.1.415505.3.579.2. 1984 Unknown [id number] 2.16. 840.1.856173.3.579.2. 1984 Unknown [id number] 2.16. 840.1.589915.3.579.2. 1984 Unknown [id number] 2.16. 840.1.462492.3.579.2. 1984 Unknown [id number] 2.16. 840.1.616395.3.579.2. 1984 Unknown [id number] 2.16. 840.1.799856.3.579.2. 1984 Unknown [id number] 2.16. 840.1.759657.3.579.2. 1984 Unknown [id number] 2.16. 840.1.851417.3.579.2 1984 Unknown [id number] 2.16. 840.1.111405.3.579.2 1984 Unknown [id number] 2.16. 840.1.240200.3.579.2 1984 Unknown [id number] 2.16. 840.1.862416.3.579.2 1984 Unknown [id number] 2.16. 840.1.237379.3.579.2 1984 Unknown [id number] 2.16. 840.1.055016.3.579.2 1984 Unknown [id number] 2.16. 840.1.408639.3.579.2 1984 Unknown [id number] 2.16. 840.1.792913.3.579. 1984 Unknown [id number] 2.16. 840.1.639451.3.579. 1984 Unknown [id number] 2.16. 840.1.706239.3.579.2 1984 Unknown [id number] 2.16. 840.1.606020.3.579.2 1984 Unknown [id number] 2.16. 840.1.200766.3.579.2 1984 Unknown [id number] 2.16. 840.1.035814.3.579.2 1984 Unknown [id number] 2.16. 840.1.373635.3.579.2 1984 Unknown [id number] 2.16. 840.1.352173.3.579.2 1984 Unknown [id number] 2.16. 840.1.984273.3.579.2.732 1984 Unknown [id number] 2.16. 840.1.938515.3.579.2.2 1984 Unknown [id number] 2.16. 840.1.327281.3.579.2.2 1984 Unknown [id number] 2.16.8 40.1.825107.3.579.2. 1984 Unknown [id number] 2.16.8 40.1.499760.3.579.2. 1984 Unknown [id number] 2.16.8 40.1.643597.3.579.2 1984 Unknown [id number] 2.16.8 40.1.686201.3.579.2. 1984 Unknown [id number] 2.16.8 40.1.338533.3.579.2 1984 Unknown [id number] 2.16.8 40.1.723444.3.579.2. 1984 Unknown [id number] 2.16.8 40.1.680005.3.579.2 1984 Unknown [id number] 2.16.8 40.1.246514.3.579.2. 1984 Unknown [id number] 2.16.8 40.1.387026.3.579.2 1984 Unknown [id number] 2.16.8 40.1.319338.3.579.2. 1984 Unknown [id number] 2.16.8 40.1.121413.3.579.2 1984 Unknown [id number] 2.16.8 40.1.040149.3.579.2 1984 Unknown [id number] 2.16.8 40.1.630968.3.579.2 1984 Unknown [id number] 2.16.8 40.1.152221.3.579.2.727 1984 Unknown [id number] 2.16.8 40.1.626231.3.579.2.727 1984 Unknown [id number] 2.16.8 40.1.933965.3.579.2.727 1984 Unknown [id number] 2.16.8 40.1.240942.3.579.2.727 1984 Unknown [id number] 2.16.8 40.1.383315.3.579.2.727 1984 Unknown [id number] 2.16.8 40.1.439432.3.579.2.727 1984 Unknown [id number] 2.16.8 40.1.206288.3.579.2.727 1984 Unknown [id number] 2.16.8 40.1.603303.3.579.2.727 1984 Unknown [id number] 2.16.8 40.1.943350.3.579.2.727 1984 Unknown [id number] 2.16.8 40.1.675448.3.579.2.727 1984 Unknown [id number] 2.16.8 40.1.901158.3.579.2.727 1984 Unknown [id number] 2.16.8 40.1.243716.3.579.2.727 1984 Unknown [id number] 2.16.8 40.1.019164.3.579.2.727 Social History Date Type Detail Facility Tobacco Tobacco smoking consumption unknown [facility] Comment on above: daily chew pt denies Sex Assigned At Male [facility] Start: 1985 Sex Assigned At [facility] Tobacco smoking stat [facility] Tobacco smoking consumption unknown [facility] Start: 08-14-2022 End: 07-24-2023 Tobacco smoking status NVIS Ex-smoker [facility] Comment on above: quit cigarettes 9 ye arsmignon carey, quit 9 years ago History of tobacco use Current smoker Met [facility] History of tobacco use [facility] Start: 08-14-2022 Tobacco use and exposure User of smokeless tobacco [facility] History of tobacco use [facility] Start: 08-05-2022 End: 12-16-2022 Exposure to SARS-CoV-2 (event) Not sure [facility] Start: 08-19-2022 End: 08-29-2022 Exposure to SARS-CoV-2 (event) Unable to assess [facility] Work Phone: Tobacco smoking status No Smokin g Status Entered [facility] Tobacco smoking status Smokeless tobacco user within last 30 days [facility] Comment on above: quit cigarettes 9 ye ken carey, quit 9 years ago Medical Equipment Procedure Code Equipment Code Equipment Origin al Text Equipment Identifier Dates [Order 1 Start] Name: dextrose 10 % iv infusion Signed Summary: 125 mL, Intravenous, at 999 mL/hr, PRN, Starting on Thu01/17/22 at 0015, Until Discontinued, For blood glucose less than 70 mg/dL, with IV access and with loss of consciousness or unable to swallow or NPO [Order 1 End] [Order 2 Start] Name: glucagon (GLUCAGEN) 1 MG injection Signed Summary: 1 mg, Subcutaneous, PRN, Starting on Thu01/17/22 at 001, Until Discontinued, For blood glucose less than 70 mg/dL and with no IV access with loss of consciousness or alert and unable to swallow. [Order 2 End] [Order 3 Start] Name: dextrose (GLUTOSE) 40 % gel Signed Summary: 15 g of glucose, Buccal, PRN, Starting on Thu01/17/22 at 0015, Until Discontinued, blood glucose between 50 - 69 mg/dL, and with no IV access, alert and able to swallow. [Order 3 End] [Order 4 Start] Name: dextrose (GLUTOSE) 40 % gel Signed Summary: 30 g of glucose, Buccal, PRN, Starting on Thu01/17/22 at 0015, Until Discontinued, blood glucose of 49mg/dL or less, and with no IV access, alert and able to swallow. [Order 4 End] [id number] Start: 01-17-2022 Functional Status Date Assessment Result Facility 07-24-2023 Functional Status N/A [facility] 06-19-2023 Functional Status N/A [facility] 03-22-2023 Functional Status N/A [facility] 02-18-2023 Functional Status N/A [facility] 02-17-2022 Functional Status N/A [facility] Clinical Notes 01-07-2022 to 08-24-2023 Note Date & Type Note Facility 08-24-2023 Note [id number] [facility] 07-24-2023 Hospital Discharg e instructions Patient Education 07/24/2023 09:14:21 Cirrhosis Cirrhosis Cirrhosis is long-term (chronic) liver injury. The liver is the body's largest internal organ, and it performs many functions. It converts food into energy, removes toxic material from the blood, makes important proteins, and absorbs necessary vitamins from food. In cirrhosis, healthy liver cells are replaced by scar tissue. This prevents blood from flowing through the liver and makes it difficult for the liver to complete its functions. What are the causes? Common causes of this condition are hepatitis C and long-term alcohol abuse. Other causes include: Nonalcoholic fatty liver disease (NAFLD). This happens when fat is deposited in the liver by causes other than alcohol. Hepatitis B infection. Autoimmune hepatitis. In this condition, the body's defense system (immune system) mistakenly attacks the liver cells, causing inflammation. Diseases that cause blockage of ducts inside the liver. Inherited liver diseases, such as hemochromatosis. This is one of the most common inherited liver diseases. In this disease, deposits of iron collect in the liver and other organs. Reactions to certain long-term medicines, such as amiodarone, a heart medicine. Parasitic infections. These include schistosomiasis, which is caused by a flatworm. Long-term contact to certain toxins. These toxins include certain organic solvents, such as toluene and chloroform. What increases the risk? You are more likely to develop this condition if: You have certain types of viral hepatitis. You abuse alcohol, especially if you are female. You are overweight. You use IV drugs and share needles. You have unprotected sex with someone who has viral hepatitis. What are the signs or symptoms? You may not have any signs and symptoms at first. Symptoms may not develop until the damage to your liver starts to get worse. Early symptoms may include: Weakness and tiredness (fatigue). Changes in sleep patterns or having trouble sleeping. Itchiness. Tenderness in the right-upper part of your abdomen. Weight loss and muscle loss. Nausea. Loss of appetite. Later symptoms may include: Fatigue or weakness that is getting worse. Yellow skin and eyes (jaundice). Buildup of fluid in the abdomen (ascites). You may notice that your clothes are tight around your waist. Weight gain and swelling of the feet and ankles (edema). Trouble breathing. Easy bruising and bleeding. Vomiting blood, or black or bloody stool. Mental confusion. How is this diagnosed? Your health care provider may suspect cirrhosis based on your symptoms and medical history, especially if you have other medical conditions or a history of alcohol abuse. Your health care provider will do a physical exam to feel your liver and to check for signs of cirrhosis. Tests may include: Blood tests to check: ?For hepatitis B or C. ?Kidney function. ?Liver function. Imaging tests such as: ?MRI or CT scan to look for changes seen in advanced cirrhosis. ?Ultrasound to see if normal liver tissue is being replaced by scar tissue. A procedure in which a long needle is used to take a sample of liver tissue to be checked in a lab (biopsy). Liver biopsy can confirm the diagnosis of cirrhosis. How is this treated? Treatment for this condition depends on how damaged your liver is and what caused the damage. It may include treating the symptoms of cirrhosis, or treating the underlying causes to slow the damage. Treatment may include: Making lifestyle changes, such as: ?Eating a healthy diet. You may need to work with your health care provider or a dietitian to develop an eating plan. ?Restricting salt intake. ?Maintaining a healthy weight. ?Not abusing drugs or alcohol. Taking medicines to: ?Treat liver infections or other infections. ?Control itching. ?Reduce fluid buildup. ?Reduce certain blood toxins. ?Reduce risk of bleeding from enlarged blood vessels in the stomach or esophagus (varices). Liver transplant. In this procedure, a liver from a donor is used to replace your diseased liver. This is done if cirrhosis has caused liver failure. Other treatments and procedures may be done depending on the problems that you get from cirrhosis. Common problems include liver-related kidney failure (hepatorenal syndrome). Follow these instructions at home: Take medicines only as told by your health care provider. Do not use medicines that are toxic to your liver. Ask your health care provider before taking any new medicines, including cglp-ipc-iyptwaj medicines such as NSAIDs. Rest as needed. Eat a well-balanced diet. Limit your salt or water intake, if your health care provider asks you to do this. Do not drink alcohol. This is especially important if you routinely take acetaminophen. Keep all follow-up visits. This is important. Contact a health care provider if you: Have fatigue or weakness that is getting worse. Develop swelling of the hands, feet, or legs, or a buildup of fluid in the abdomen (ascites). Have a fever or chills. Develop loss of appetite. Have nausea or vomiting. Develop jaundice. Develop easy bruising or bleeding. Get help right away if you: Vomit bright red blood or a material that looks like coffee grounds. Have blood in your stools. Notice that your stools appear black and tarry. Become confused. Have chest pain or trouble breathing. These symptoms may represent a serious problem that is an emergency. Do not wait to see if the symptoms will go away. Get medical help right away. Call your local emergency services (911 in the [place] Do not drive yourself to the hospital. Summary Cirrhosis is chronic liver injury. Common causes are hepatitis C and long-term alcohol abuse. Tests used to diagnose cirrhosis include blood tests, imaging tests, and liver biopsy. Treatment for this condition involves treating the underlying cause. Avoid alcohol, drugs, salt, and medicines that may damage your liver. Get help right away if you vomit bright red blood or a material that looks like coffee grounds. This information is not intended to replace advice given to you by your health care provider. Make sure you discuss any questions you have with your health care provider. Document Revised: 06/06/2021 Document Reviewed: 06/06/2021 [employer] Patient Education 2022 [employer] 07/24/2023 09:14:01 Heart Disease Prevention Heart Disease Prevention Heart disease is the leading cause of in the world. Coronary artery disease is the most common cause of heart disease. This condition results when cholesterol and other substances (plaque) build up inside the martin of the blood vessels that supply your heart muscle (arteries). This buildup in arteries is called atherosclerosis. You can take actions to lower your risk of heart disease. How can heart disease affect me? Heart disease can cause many unpleasant symptoms and complications, such as: Chest pain (angina). Reduced or blocked blood flow to your heart. This can cause: ?Irregular heartbeats (arrhythmias). ?Heart attack. ?Heart failure. What can increase my risk? The following factors may make you more likely to develop this condition: High blood pressure (hypertension). High cholesterol. A diet high in saturated fats or trans fats. Obesity. Diabetes. Having a family history of heart disease. Certain lifestyle factors, including: ?Smoking. ?Lack of physical activity. ?Drinking too much alcohol. What actions can I take to prevent heart disease? Nutrition Follow a heart-healthy eating plan as told by your health care provider. Examples include the DASH eating plan. DASH stands for Dietary Approaches to Stop Hypertension. Generally, it is recommended that you: ?Eat less salt (sodium). Ask your health care provider how much sodium is safe for you. Most people should have less than 2,300 mg each day. ?Limit unhealthy fats, such as saturated and trans fats, in your diet. You can do this by eating low-fat dairy products, eating less red meat, and avoiding processed foods. ?Eat healthy fats (omega-3 fatty acids). These are found in fish, such as mackerel or salmon. ?Eat more fruits and vegetables. You should try to fill one-half of your plate with fruits and vegetables at each meal. ?Eat more whole grains. ?Avoid foods and drinks that have added sugars. Try to limit how much added sugar you have to: ?Less than 25 grams a day for women. ?Less than 36 grams a day for men. Lifestyle Get regular exercise. This is one of the most important things you can do for your health. Generally, it is recommended that you: ?Exercise for at least 30 minutes on most days of the week (150 minutes each week). This should be exercise that causes your heart to beat faster (aerobic exercise). ?Add strength exercises on at least 2 days each week. Do not use any products that contain nicotine or tobacco. These products include cigarettes, chewing tobacco, and vaping devices, such as e-cigarettes. These can damage your heart and blood vessels. If you need help quitting, ask your health care provider. Alcohol use Do not drink alcohol if: ?Your health care provider tells you not to drink. ?You are , may be , or are planning to become . If you drink alcohol: ?Limit how much you have to: ?0 1 drink a day for women. ?0 2 drinks a day for men. ?Know how much alcohol is in your drink. In the [place] one drink equals one 12 oz bottle of beer (355 mL), one 5 oz glass of wine (148 mL), or one 1 oz glass of hard liquor (44 mL). Medicines Take vowr-odd-vhxbkbq and prescription medicines only as told by your health care provider. Work with your health care provider to find out whether it is safe and beneficial for you to take aspirin daily. Make sure that you understand how much to take and what form to take. Depending on your risk factors, your health care provider may prescribe medicines to lower your risk of heart disease or to control related conditions. You may take medicine to: ?Lower cholesterol. ?Control blood pressure. ?Control diabetes. General information Keep your blood pressure under control, as recommended by your health care provider. For most healthy people, the upper number of their blood pressure (systolic) should be no higher than 120, and the lower number (diastolic) no higher than 80. Treatment may be needed if your blood pressure is higher than 130/80. Have your blood pressure checked at least every 2 years. Your health care provider may check your blood pressure more often if you have high blood pressure. After age 20, have your cholesterol checked every 4 6 years. If you have risk factors for heart disease, you may need to have it checked more often. Treatment may be needed if your cholesterol is high. Have your body mass index (BMI) checked every year. Your health care provider can calculate your BMI from your height and weight. Check your waist circumference. It should be: ?No more than 35 inches (89 cm) for women who are not . ?No more than 40 inches (102 cm) for men. Work with your health care provider to lose weight, if needed, or to maintain a healthy weight. Where to find more information: Centers for Disease Control and Prevention: www.cdc.gov/heartdisease [place] [employer]: www.heart.org Summary Heart disease is the leading cause of in the world. Heart disease can cause chest pain, abnormal heart rhythms, heart attack, and heart failure. Some of the risk factors for heart disease include high blood pressure, high cholesterol, and smoking. You can take actions to lower your chances of developing heart disease. Work with your health care provider to reduce your risk by following a heart-healthy diet, being physically active, and controlling your weight, blood pressure, and cholesterol level. This information is not intended to replace advice given to you by your health care provider. Make sure you discuss any questions you have with your health care provider. Document Revised: 04/23/2022 Document Reviewed: 04/23/2022 [employer] Patient Education 2022 [employer]. 07/24/2023 09:13:57 Anemia Anemia Anemia is a condition in which there is not enough red blood cells or hemoglobin in the blood. Hemoglobin is a substance in red blood cells that carries oxygen. When you do not have enough red blood cells or hemoglobin (are anemic), your body cannot get enough oxygen and your organs may not work properly. As a result, you may feel very tired or have other problems. What are the causes? Common causes of anemia include: Excessive bleeding. Anemia can be caused by excessive bleeding inside or outside the body, including bleeding from the intestines or from heavy menstrual periods in females. Poor nutrition. Long-lasting (chronic) kidney, thyroid, and liver disease. Bone marrow disorders, spleen problems, and blood disorders. Cancer and treatments for cancer. HIV (human immunodeficiency virus) and AIDS (acquired immunodeficiency syndrome). Infections, medicines, and autoimmune disorders that destroy red blood cells. What are the signs or symptoms? Symptoms of this condition include: Minor weakness. Dizziness. Headache, or difficulties concentrating and sleeping. Heartbeats that feel irregular or faster than normal (palpitations). Shortness of breath, especially with exercise. Pale skin, lips, and nails, or cold hands and feet. Indigestion and nausea. Symptoms may occur suddenly or develop slowly. If your anemia is mild, you may not have symptoms. How is this diagnosed? This condition is diagnosed based on blood tests, your medical history, and a physical exam. In some cases, a test may be needed in which cells are removed from the soft tissue inside of a bone and looked at under a microscope (bone marrow biopsy). Your health care provider may also check your stool (feces) for blood and may do additional testing to look for the cause of your bleeding. Other tests may include: Imaging tests, such as a CT scan or MRI. A procedure to see inside your esophagus and stomach (endoscopy). A procedure to see inside your colon and rectum (colonoscopy). How is this treated? Treatment for this condition depends on the cause. If you continue to lose a lot of blood, you may need to be treated at a hospital. Treatment may include: Taking supplements of iron, vitamin B12, or folic acid. Taking a hormone medicine (erythropoietin) that can help to stimulate red blood cell growth. Having a blood transfusion. This may be needed if you lose a lot of blood. Making changes to your diet. Having surgery to remove your spleen. Follow these instructions at home: Take ysta-ymj-gmszyjb and prescription medicines only as told by your health care provider. Take supplements only as told by your health care provider. Follow any diet instructions that you were given by your health care provider. Keep all follow-up visits as told by your health care provider. This is important. Contact a health care provider if: You develop new bleeding anywhere in the body. Get help right away if: You are very weak. You are short of breath. You have pain in your abdomen or chest. You are dizzy or feel faint. You have trouble concentrating. You have bloody stools, black stools, or tarry stools. You vomit repeatedly or you vomit up blood. These symptoms may represent a serious problem that is an emergency. Do not wait to see if the symptoms will go away. Get medical help right away. Call your local emergency services (911 in the [place] Do not drive yourself to the hospital. Summary Anemia is a condition in which you do not have enough red blood cells or enough of a substance in your red blood cells that carries oxygen (hemoglobin). Symptoms may occur suddenly or develop slowly. If your anemia is mild, you may not have symptoms. This condition is diagnosed with blood tests, a medical history, and a physical exam. Other tests may be needed. Treatment for this condition depends on the cause of the anemia. This information is not intended to replace advice given to you by your health care provider. Make sure you discuss any questions you have with your health care provider. Document Revised: 07/08/2022 Document Reviewed: 07/31/2020 [employer] Patient Education 2022 [employer]. 07/24/2023 09:13:53 Hypokalemia Hypokalemia Hypokalemia means that the amount of potassium in the blood is lower than normal. Potassium is a mineral (electrolyte) that helps regulate the amount of fluid in the body. It also stimulates muscle tightening (contraction) and helps nerves work properly. Normally, most of the body's potassium is inside cells, and only a very small amount is in the blood. Because the amount in the blood is so small, minor changes to potassium levels in the blood can be life-threatening. What are the causes? This condition may be caused by: Antibiotic medicine. Diarrhea or vomiting. Taking too much of a medicine that helps you have a bowel movement (laxative) can cause diarrhea and lead to hypokalemia. Chronic kidney disease (CKD). Medicines that help the body get rid of excess fluid (diuretics). Eating disorders, such as anorexia or bulimia. Low magnesium levels in the body. Sweating a lot. What are the signs or symptoms? Symptoms of this condition include: Weakness. Constipation. Fatigue. Muscle cramps. Mental confusion. Skipped heartbeats or irregular heartbeat (palpitations). Tingling or numbness. How is this diagnosed? This condition is diagnosed with a blood test. How is this treated? This condition may be treated by: Taking potassium supplements. Adjusting the medicines that you take. Eating more foods that contain a lot of potassium. If your potassium level is very low, you may need to get potassium through an IV and be monitored in the hospital. Follow these instructions at home: Eating and drinking Eat a healthy diet. A healthy diet includes fresh fruits and vegetables, whole grains, healthy fats, and lean proteins. If told, eat more foods that contain a lot of potassium. These include: ?Nuts, such as peanuts and pistachios. ?Seeds, such as sunflower seeds and pumpkin seeds. ?Peas, lentils, and gerardo beans. ?Whole grain and bran cereals and breads. ?Fresh fruits and vegetables, such as apricots, avocado, bananas, cantaloupe, kiwi, oranges, tomatoes, asparagus, and potatoes. ?Juices, such as orange, tomato, and prune. ?Lean meats, including fish. ?Milk and milk products, such as yogurt. General instructions Take jgkk-vtb-jptygft and prescription medicines only as told by your health care provider. This includes vitamins, natural food products, and supplements. Keep all follow-up visits. This is important. Contact a health care provider if: You have weakness that gets worse. You feel your heart pounding or racing. You vomit. You have diarrhea. You have diabetes and you have trouble keeping your blood sugar in your target range. Get help right away if: You have chest pain. You have shortness of breath. You have vomiting or diarrhea that lasts for more than 2 days. You faint. These symptoms may be an emergency. Get help right away. Call 911. Do not wait to see if the symptoms will go away. Do not drive yourself to the hospital. Summary Hypokalemia means that the amount of potassium in the blood is lower than normal. This condition is diagnosed with a blood test. Hypokalemia may be treated by taking potassium supplements, adjusting the medicines that you take, or eating more foods that are high in potassium. If your potassium level is very low, you may need to get potassium through an IV and be monitored in the hospital. This information is not intended to replace advice given to you by your health care provider. Make sure you discuss any questions you have with your health care provider. Document Revised: 05/08/2022 Document Reviewed: 05/08/2022 [employer] Patient Education 2022 [employer]. 07/24/2023 09:13:45 Thrombocytopenia Thrombocytopenia Thrombocytopenia is a condition in which there are a low number of platelets in the blood. Platelets are also called thrombocytes. Platelets are parts of blood that stick together and form a clot to help the body stop bleeding after an injury. If you have too few platelets, your blood may have trouble clotting. This may cause you to bleed and bruise very easily. Some cases of thrombocytopenia are mild while others are more severe. What are the causes? This condition is caused by a low number of platelets in your blood. There are three main reasons for this: Your body not making enough platelets. This may be caused by: ?Bone marrow diseases. This include aplastic anemia, leukemia, and myelodysplastic anemia. ?Congenital thrombocytopenia. This is a condition that is passed from parent to child (inherited). ?Certain cancer treatments, including chemotherapy and radiation therapy. ?Infections from bacteria or viruses. ?Alcohol use disorder and alcoholism. Platelets not being released in the blood. This is called platelet sequestration and it can happen due to: ?An overactive spleen (hypersplenism). The spleen gathers up platelets from circulation, meaning that the platelets are not available to help with clotting your blood. The spleen can be enlarged because of scarring or other conditions. ?Gaucher disease. Your body destroying platelets too quickly. This may be caused by: ?An autoimmune disease that causes immune thrombocytopenia (ITP). ITP is sometimes associated with other autoimmune conditions such as lupus. ?Certain medicines, such as blood thinners. ?Certain blood clotting or bleeding disorders. ?Exposure to toxic chemicals, such as pesticides, lead, benzene, and arsenic. ?. What are the signs or symptoms? Symptoms of this condition are the result of poor blood clotting. They will vary depending on how low the platelet counts are. Symptoms may include: Bruising easily. Bleeding from the mouth or nose. Heavy menstrual periods. Blood in the urine, stool (feces), or vomit. Purplish-red discolorations on the skin (purpura). A rash that looks like pinpoint, purplish-red spots (petechiae) on the lower legs. How is this diagnosed? This condition may be diagnosed with blood tests and a physical exam. You may also have other tests, including: A sample of bone marrow (biopsy) may be removed to look for the original cells that make platelets. An ultrasound or CT scan of the abdomen to check for an enlarged spleen, enlarged lymph nodes, or liver problems. How is this treated? Treatment for this condition depends on the cause. Treatment may include: Treatment of another condition that is causing the low platelet count. Medicines to help protect your platelets from being destroyed. A replacement (transfusion) of platelets to stop or prevent bleeding. Surgery to remove the spleen. Follow these instructions at home: Medicines Take ejuf-tsz-ndqwlbv and prescription medicines only as told by your health care provider. Do not take any medicines that contain aspirin or NSAIDs, such as ibuprofen. These medicines increase your risk for dangerous bleeding. Activity Avoid activities that could cause injury or bruising, and follow instructions about how to prevent falls. Do not play contact sports. Ask your health care provider what activities are safe for you. Take extra care to protect yourself from amezquita when ironing or cooking. Take extra care not to cut yourself when you shave or when you use scissors, needles, knives, and other tools. General instructions Check your skin and the inside of your mouth for bruising or bleeding as told by your health care provider. Wear a medical alert bracelet that says that you have a bleeding disorder. This can help you get the treatment you need in case of emergency. Check your urine and stool for blood as told by your health care provider. Do not drink alcohol. If you do drink alcohol, limit the amount that you drink. Minimize contact with toxic chemicals. Tell all your health care providers, including dental care providers and eye doctors, about your condition. Make sure to tell dental care providers before you have any procedure done, including dental cleanings. Keep all follow-up visits. This is important. Contact a health care provider if: You have unexplained bruising. You have new symptoms. You have symptoms that get worse. You have a fever. Get help right away if: You have severe bleeding from anywhere on your body. You have blood in your vomit, urine, or stool. You have an injury to your head. You have a sudden, severe headache. Summary Thrombocytopenia is a condition in which you have a low number of platelets in the blood. Platelets are parts of blood that stick together to form a clot. Symptoms of this condition are the result of poor blood clotting and may include bruising easily, bleeding from the nose or mouth, petechiae, and purpura. This condition may be diagnosed with blood tests and a physical exam. Treatment for this condition depends on the cause. This information is not intended to replace advice given to you by your health care provider. Make sure you discuss any questions you have with your health care provider. Document Revised: 02/06/2022 Document Reviewed: 02/06/2022 [employer] Patient Education 2022 [employer]. [facility] 06-19-2023 Hospital Discharg e instructions Patient Education 06/19/2023 13:28:07 Insect Bite, Adult, [id number]-th-Dtba Insect Bite, Adult An insect bite can make your skin red, itchy, and swollen. Some insects can spread disease to people with a bite. However, most insect bites do not lead to disease, and most are not serious. What are the causes? Insects may bite for many reasons, including: Hunger. To defend themselves. Insects that bite include: Spiders. Mosquitoes. Ticks. Fleas. Ants. Flies. Kissing bugs. Chiggers. What are the signs or symptoms? Symptoms of this condition include: Itching or pain in the bite area. Redness and swelling in the bite area. An open wound (skin ulcer). Symptoms often last for 2 4 days. In rare cases, a person may have a very bad allergic reaction (anaphylactic reaction) to a bite. Symptoms of an anaphylactic reaction may include: Feeling bioengineer the face (flushed). Your face may turn red. Itchy, red, swollen areas of skin (hives). Swelling of the: ?Eyes. ?Lips. ?Face. ?Mouth. ?Tongue. ?Throat. Trouble with any of these: ?Breathing. ?Talking. ?Swallowing. Loud breathing (wheezing). Feeling dizzy or light-headed. Passing out (fainting). Pain or cramps in your belly. Throwing up (vomiting). Watery poop (diarrhea). How is this treated? Treatment is usually not needed. Symptoms often go away on their own. When treatment is needed, it may involve: Putting a cream or lotion on the bite area. This helps with itching. Taking an antibiotic medicine. This treatment is needed if the bite area gets infected. Getting a tetanus shot, if you are not up to date on this vaccine. Putting ice on the affected area. Using medicines called antihistamines. This treatment may be needed if you have itching or an allergic reaction to the insect bite. Giving yourself a shot of medicine (epinephrine) using an auto-injector pen if you have an anaphylactic reaction to a bite. Your doctor will teach you how to use this pen. Follow these instructions at home: Bite area care Do not scratch the bite area. Keep the bite area clean and dry. Wash the bite area every day with soap and water as told by your doctor. Check the bite area every day for signs of infection. Check for: ?Redness, swelling, or pain. ?Fluid or blood. ?Warmth. ?Pus or a bad smell. Managing pain, itching, and swelling You may put any of these on the bite area as told by your doctor: ?A paste made of baking soda and water. ?Cortisone cream. ?Calamine lotion. If told, put ice on the bite area. ?Put ice in a plastic bag. ?Place a towel between your skin and the bag. ?Leave the ice on for 20 minutes, 2 3 times a day. General instructions Apply or take uqjb-xhn-eersbsd and prescription medicines only as told by your doctor. If you were prescribed an antibiotic medicine, take or apply it as told by your doctor. Do not stop using the antibiotic even if your condition improves. Keep all follow-up visits as told by your doctor. This is important. How is this prevented? To help you have a lower risk of insect bites: When you are outside, wear clothing that covers your arms and legs. Use insect repellent. The best insect repellents contain one of these: ?DEET. ?Picaridin. ?Oil of lemon eucalyptus (OLE). ?[id number]. Consider spraying your clothing with a pesticide called permethrin. Permethrin helps prevent insect bites. It works for several weeks and for up to 5 6 clothing washes. Do not apply permethrin directly to the skin. If your home windows do not have screens, think about putting some in. If you will be sleeping in an area where there are mosquitoes, consider covering your sleeping area with a mosquito net. Contact a doctor if: You have redness, swelling, or pain in the bite area. You have fluid or blood coming from the bite area. The bite area feels warm to the touch. You have pus or a bad smell coming from the bite area. You have a fever. Get help right away if: You have joint pain. You have a rash. You feel more tired or sleepy than you normally do. You have neck pain. You have a headache. You feel weaker than you normally do. You have signs of an anaphylactic reaction. Signs may include: ?Feeling bioengineer the face. ?Itchy, red, swollen areas of skin. ?Swelling of your: ?Eyes. ?Lips. ?Face. ?Mouth. ?Tongue. ?Throat. ?Trouble with any of these: ?Breathing. ?Talking. ?Swallowing. ?Loud breathing. ?Feeling dizzy or light-headed. ?Passing out. ?Pain or cramps in your belly. ?Throwing up. ?Watery poop. These symptoms may be an emergency. Do not wait to see if the symptoms will go away. Do this right away: Use your auto-injector pen as you have been told. Get medical help. Call your local emergency services (911 in the [place] Do not drive yourself to the hospital. Summary An insect bite can make your skin red, itchy, and swollen. Treatment is usually not needed. Symptoms often go away on their own. Do not scratch the bite area. Keep it clean and dry. Ice can help with pain and itching from the bite. This information is not intended to replace advice given to you by your health care provider. Make sure you discuss any questions you have with your health care provider. Document Revised: 05/26/2022 Document Reviewed: 05/26/2022 [employer] Patient Education 2022 [employer]. Follow Up Care 06/19/2023 12:16:43 With:Colby Link Address: [address], [address] [place] [address]- Business (1) When:06/22/2023 12:39:51 Comments:Follow-up with your primary care provider in 3 to 5 days. If symptoms worsen, do not improve, or new symptoms arise please report back to emergency department for further evaluation. [facility] 04-24-2023 Evaluation note Encounter Date Diagnosis Assessment Notes Apr, Non-healing wound of right lower extremity (ICD-10 - S81.801A) Apr, Other Right leg swelling and delayed healing of the right leg wound His story is consistent throughout in that he developed swelling initially when he was diagnosed with cirrhosis. This has been exacerbated by long working hours with dependent edema and then several episodes of infection and subsequent ulceration. At this juncture with compression he is improving and the ulcer is nearly closed. He has many questions about treatment and I believe that he could either continue with his current compressive wraps or use graded compression with an overlying dressing. He will continue in wound care at this time. We talked about elevation which will be quite important for him in the evenings. 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 He states that his liver disease has stabilized since he has discontinued drinking hopefully he will continue to improve with regards to his lower extremity edema. I will plan to see him back in August for follow-up and he knows that he can call sooner should he deteriorate in any way [employer] Other 08-15-2023 History of Present illness Narrative* Monie Hernandez RN - 04/21/2023 11:09 AM EDT Patient was identified by name and date of . Monie Hernandez RN Patient at risk for falls:No Falls Risk protocol implemented: No Patient arrived to clinic for blood work. Labs obtained via venipuncture in the AC with a #23 gauge butterfly needle. drsg applied and patient tolerated procedure well. Monie Hernandez RN documented in this [id number] History of Present illness Narrative* Gustabo Ritchie - 04/21/2023 9:44 AM EDT Patient was identified by name and date of . Gustabo Pittman Body Mass Index is 27.08. Body Surface Area is 1.90 square meters according to the formula of Eli and Eli. Patient at risk for falls:No Falls Risk protocol implemented: No Blood pressure 136/67, pulse 79, temperature 97.7 F (36.5 C), resp. rate 20, height 5' 7 (1.702 m), weight 172 lb 14.4 oz (78.4 kg), SpO2 100 %. Gustabo Pittman * Gustabo Ritchie - 04/21/2023 9:41 AM EDT Patient was identified by name and date of . Gustabo Pittman Body Mass Index is 27.08. Body Surface Area is 1.90 square meters according to the formula of Eli and Eli. Patient at risk for falls:No Falls Risk protocol implemented: No Blood pressure 136/67, pulse 79, temperature 97.7 F (36.5 C), resp. rate 20, height 5' 7 (1.702 m), weight 172 lb 14.4 oz (78.4 kg), SpO2 100 %. Gustabo Pittman documented in this [id number] NoteMicrobiology PROCEDURE: Blood Culture Charcoal [R1] SOURCE: Blood BODY SITE: Arm R COLLECTED DATE/TIME: 03/22/2023 20:30 EDT RECEIVED DATE/TIME: 03/22/2023 20:51 EDT START DATE/TIME: 03/22/2023 20:51 EDT FREE TEXT SOURCE: Peripheral vein site #1 Mary Ann DO, Martin S. Mary Ann DO, Martin S. FINAL REPORTS Final Report [] Verified Date/Time: 03/30/2023 07:00 EDT No growth at 7 days. Performing Locations R1: This test was performed at: [facility], [address] [place] [address], [address] [place] [address], [facility] HospitalComment on above:Performed By: #### [id number] #### [facility] [address] [place] [address] [id number] NoteMicrobiology PROCEDURE: Blood Culture Charcoal [R1] SOURCE: Blood BODY SITE: Arm L COLLECTED DATE/TIME: 03/22/2023 20:41 EDT RECEIVED DATE/TIME: 03/22/2023 20:51 EDT START DATE/TIME: 03/22/2023 20:51 EDT FREE TEXT SOURCE: Peripheral vein site #2 Mary Ann DO, Mratin S. Mary Ann DO, Martin S. FINAL REPORTS Final Report [] Verified Date/Time: 03/30/2023 07:00 EDT No growth at 7 days. Performing Locations R1: This test was performed at: [facility], [address] [place] [address], [id number] , , [facility]zy[facility] HospitalComment on above:Performed By: #### [id number] ####[facility] [address] [place], [place] [id number] Hospital Discharge instructions Patient Education 03/22/2023 21:57:13 Cellulitis, Adult Cellulitis, Adult Cellulitis is a skin infection. The infected area is usually warm, red, swollen, and tender. This condition occurs most often in the arms and lower legs. The infection can travel to the muscles, blood, and underlying tissue and become serious. It is very important to get treated for this condition. What are the causes? Cellulitis is caused by bacteria. The bacteria enter through a break in the skin, such as a cut, burn, insect bite, open sore, or crack. What increases the risk? This condition is more likely to occur in people who: Have a weak body defense system (immune system). Have open wounds on the skin, such as cuts, amezquita, bites, and scrapes. Bacteria can enter the body through these open wounds. Are older than 60 years of age. Have diabetes. Have a type of long-lasting (chronic) liver disease (cirrhosis) or kidney disease. Are obese. Have a skin condition such as: ?Itchy rash (eczema). ?Slow movement of blood in the veins (venous stasis). ?Fluid buildup below the skin (edema). Have had radiation therapy. Use IV drugs. What are the signs or symptoms? Symptoms of this condition include: Redness, streaking, or spotting on the skin. Swollen area of the skin. Tenderness or pain when an area of the skin is touched. Warm skin. A fever. Chills. Blisters. How is this diagnosed? This condition is diagnosed based on a medical history and physical exam. You may also have tests, including: Blood tests. Imaging tests. How is this treated? Treatment for this condition may include: Medicines, such as antibiotic medicines or medicines to treat allergies (antihistamines). Supportive care, such as rest and application of cold or warm cloths (compresses) to the skin. Hospital care, if the condition is severe. The infection usually starts to get better within 1 2 days of treatment. Follow these instructions at home: Medicines Take bshl-kuf-ozrttuq and prescription medicines only as told by your health care provider. If you were prescribed an antibiotic medicine, take it as told by your health care provider. Do notstop taking the antibiotic even if you start to feel better. General instructions Drink enough fluid to keep your urine pale yellow. Do not touch or rub the infected area. Raise (elevate) the infected area above the level of your heart while you are sitting or lying down. Apply warm or cold compresses to the affected area as told by your health care provider. Keep all follow-up visits as told by your health care provider. This is important. These visits letyour health care provider make sure a more serious infection is not developing. Contact a health care provider if: You have a fever. Your symptoms do not begin to improve within 1 2 days of starting treatment. Your bone or joint underneath the infected area becomes painful after the skin has healed. Your infection returns in the same area or another area. You notice a swollen bump in the infected area. You develop new symptoms. You have a general ill feeling (malaise) with muscle aches and pains. Get help right away if: Your symptoms get worse. You feel very sleepy. You develop vomiting or diarrhea that persists. You notice red streaks coming from the infected area. Your red area gets larger or turns dark in color. These symptoms may represent a serious problem that is an emergency. Do not wait to see if the symptoms will go away. Get medical help right away. Call your local emergency services (911 in the [place] Do not drive yourself to the hospital. Summary Cellulitis is a skin infection. This condition occurs most often in the arms and lower legs. Treatment for this condition may include medicines, such as antibiotic medicines or antihistamines. Take urmo-yos-rnnmfti and prescription medicines only as told by your health care provider. If you were prescribed an antibiotic medicine, do not stop taking the antibiotic even if you start to feel better. Contact a health care provider if your symptoms do not begin to improve within 1 2 days of startingtreatment or your symptoms get worse. Keep all follow-up visits as told by your health care provider. This is important. These visits letyour health care provider make sure that a more serious infection is not developing. This information is not intended to replace advice given to you by your health care provider. Make sure you discuss any questions you have with your health care provider. Document Revised: 06/05/2022 Document Reviewed: 06/05/2022 [employer] Patient Education 2022 [employer]. Follow Up Care 03/22/2023 19:36:11 With:THEO BURKS Address:Unknown When:Within 3 Day(s) [facility]07-16-2023 Evaluation + Plan noteExtracted from: Title:ED Note Author:Martin Reese DO Date :03/22/23 Cellulitis (L03.90: Cellulit is, unspecified) Orders: ondansetron, 4 mg = 1 tab(s), Oral, q8hr, PRN Nausea/Vomiting, # 20 tab(s), Refills(s) 0, Pharmacy: [facility] #[id number], 170, cm, 03/22/23 20:14:00 EDT, Height/Length Dosing, 75.2, kg, 03/22/23 20:14:00 EDT, Weight Dosing ondansetron, 4 mg = 2 mL, Injection, IV Push, Once, Stop date 03/22/23 20:18:00 EDT, STAT, Start date 03/22/23 20:18:00 EDT, 03/22/23 20:18:00 EDT potassium chloride, 40 mEq = 2 tab(s), Tab-ER, Oral, Once, Stop date 03/22/23 21:40:00 EDT, STAT, Start date 03/22/23 21:40:00 EDT, 03/22/23 21:40:00 EDT Sodium Chloride 0.9% intravenous solution, 1,000 mL, Soln-IV, IV, Once, Stop date 03/22/23 20:19:00 EDT, STAT, Start date 03/22/23 20:19:00 EDT, Infuse over 61, minute(s) sulfamethoxazole-trimethoprim, 1 tab(s), Oral, BID for 14 day(s), 28 tab(s), Refill(s) 0, [facility] #[id number], 170, cm, 03/22/23 20:14:00 EDT, Height/Length Dosing, 75.2, kg, 03/22/23 20:14:00 EDT, Weight Dosing sulfamethoxazole-trimethoprim, 1 tab(s), Tab, Oral, Once, Stop date 03/22/23 21:40:00 EDT, STAT, Start date 03/22/23 21:40:00 EDT Automated Diff Blood Culture Charcoal Blood Culture Charcoal CBC w/ Auto Diff Comprehensive Metabolic Panel Continuous Pulse Oximetry ECG 12 Lead Adult ED Cardiac Monitoring eGFR Lactic Acid Lactic Acid Lactic Acid Oxygen Therapy PT & PTT Troponin Future Appointments Appointment Date:03/30/2023 11:00:00 AM Scheduled Provider:Teddy Hitchcock MD [facility] Appointment Type:[facility] Follow Up Visit (FT) Diagnostic Tests Pending * Blood Culture Charcoal 03/22/23 * Blood Culture Charcoal 03/22/23 [facility]06-30-2023 Telephone encounter Note* Telephone Encounter - Deborah Gutierrez CPhT - 03/06/2023 8:55 AM EDT A prior authorization has been started for Lidocaine 5% patch PA status can be found under the prescription order in the Medication Tab. History or status of the PA can also be found in Chart Review under Referral tab. [id number] Miscellaneous Notes* Telephone Encounter - Deborah Gutierrez CPhT - 03/06/2023 8:55 AM EDT A prior authorization has been started for Lidocaine 5% patch PA status can be found under the prescription order in the Medication Tab. History or status of the PA can also be found in Chart Review under Referral tab. documented in this [id number] Telephone encounter Note* Telephone Encounter - Nighat Mahmood APRN-CNP - 02/27/2023 5:05 PM EDT Pt had video visit scheduled. Link sent to him, but he never checked in. [employer] Work Phone: [phone] Miscellaneous Notes* Telephone Encounter - Nighat Mahmood APRN-CNP - 02/27/2023 5:05 PM EDT Pt had video visit scheduled. Link sent to him, but he never checked in. * Telephone Encounter - Jordana Stanton RN - 02/27/2023 2:55 PM EDT Called the patient Reminded him of his video visit this ThursdayMarch 03 with Lindsey Mahmood Pt concerned about his leg, he will send a picture to My Chart To his provider Concerned about his infection Notified Lindsey Mahmood * Telephone Encounter - Tobi Bowen - 02/27/2023 2:36 PM EDT What is the need: call back Situation: Pt states that the doctors office called him stating that they were running behind but he never got a phone call. Please advise Background: Please contact and advise Assessment: Pt contact info is Phone numbers Recommendation: n/a Thank you documented in this [id number] Telephone encounter Note* Telephone Encounter - Jordana Stanton RN - 02/27/2023 2:55 PM EDT Called the patient Reminded him of his video visit this ThursdayMarch 03 with Lindsey Mahmood Pt concerned about his leg, he will send a picture to My Chart To his provider Concerned about his infection Notified Lindsey Mahmood [employer] Work Phone: [phone] Telephone encounter Note* Telephone Encounter - Tobi Bowen - 02/27/2023 2:36 PM EDT What is the need: call back Situation: Pt states that the doctors office called him stating that they were running behind but he never got a phone call. Please advise Background: Please contact and advise Assessment: Pt contact info is Phone numbers Recommendation: n/a Thank you [id number] Evaluation + Plan noteExtracted from: Title:ED Note Author:Omid PARKER, Xander Field te:02/18/23 Cellulitis of right leg (L03 .115: Cellulitis of right lower limb) Right leg pain (M79.604: Pain in right leg) Orders: clindamycin, 300 mg = 1 cap(s), Oral, q6hr, X 7 day(s), # 28 cap(s), Refills(s) 0, Pharmacy: [facility] #[id number], 170, cm, 02/18/23 7:51:00 EDT, Height/Length Dosing, 77, kg, 02/18/23 7:51:00 EDT, Weight Dosing ibuprofen, 800 mg = 1 tab(s), Tab, Oral, Once, Stop date 02/18/23 8:22:00 EDT, STAT, Start date 02/18/23 8:22:00 EDT, 02/18/23 8:22:00 EDT oxycodone, 5 mg = 1 tab(s), Tab, Oral, Once, Stop date 02/18/23 8:22:00 EDT, STAT, Start date 02/18/23 8:22:00 EDT, 02/18/23 8:22:00 EDT oxycodone, 5 mg = 1 cap(s), Oral, q6hr, PRN for pain, X 3 day(s), # 15 cap(s), Refills(s) 0, Pharmacy: [facility] #[id number], 170, cm, 02/18/23 7:51:00 EDT, Height/Length Dosing, 77, kg, 02/18/23 7:51:00 EDT, Weight Dosing US LE Venous Duplex Right [facility]06-14-2023 Hospital Discharge instructions Patient Education 02/18/2023 09:31:38 RICE Therapy for Routine Care of Injuries, Ntba-wa-Bqjq RICE Therapy for Routine Care of Injuries Many injuries can be cared for with rest, ice, compression, and elevation (RICE therapy). This includes: Resting the injured body part. Putting ice on the injury. Putting pressure (compression) on the injury. Raising the injured part (elevation). Using RICE therapy can help to lessen pain and swelling. Supplies needed: Ice. Plastic bag. Towel. Elastic bandage. Pillow or pillows to raise your injured body part. How to care for your injury with RICE therapy Rest Try to rest the injured part of your body. You can go back to your normal activities when your doctor says it is okay to do them and when you can do them without pain. If you rest the injury too much, it may not heal as well. Some injuries heal better with early movement instead of resting for too long. Ask your doctor if you should do exercises to help your injuryget better. Ice If told, put ice on the injured area. To do this: ?Put ice in a plastic bag. ?Place a towel between your skin and the bag. ?Leave the ice on for 20 minutes, 2 3 times a day. ?Take off the ice if your skin turns bright red. This is very important. If you cannot feel pain, heat, or cold, you have a greater risk of damage to the area. Do not put ice on your bare skin. Use ice for as many days as your doctor tells you to use it. Compression Put pressure on the injured area. This can be done with an elastic bandage. If this type of bandagehas been put on your injury: Follow instructions on the package the bandage came in about how to use it. Do not wrap the bandage too tightly. ?Wrap the bandage more loosely if part of your body beyond the bandage is blue, swollen, cold, painful, or loses feeling. Take off the bandage and put it on again every 3 4 hours or as told by your doctor. See your doctor if the bandage seems to make your problems worse. Elevation Raise the injured area above the level of your heart while you are sitting or lying down. Follow these instructions at home: If your symptoms get worse or last a long time, make a follow-up appointment with your doctor. You may need to have imaging tests, such as X-rays or an MRI. If you have imaging tests, ask how to get your results when they are ready. Return to your normal activities when your doctor says that it is safe. Keep all follow-up visits. Contact a doctor if: You keep having pain and swelling. Your symptoms get worse. Get help right away if: You have sudden, very bad pain at your injury or lower than your injury. You have redness or more swelling around your injury. You have tingling or numbness at your injury or lower than your injury, and it does not go away when you take off the bandage. Summary Many injuries can be cared for using rest, ice, compression, and elevation (RICE therapy). You can go back to your normal activities when your doctor says it is okay and when you can do themwithout pain. Put ice on the injured area as told by your doctor. Get help if your symptoms get worse or if you keep having pain and swelling. This information is not intended to replace advice given to you by your health care provider. Make sure you discuss any questions you have with your health care provider. Document Revised: 06/13/2021 Document Reviewed: 06/13/2021 [employer] Patient Education 2022 [employer]. 02/18/2023 09:31:38 Musculoskeletal Pain Musculoskeletal Pain Musculoskeletal pain refers to aches and pains in your bones, joints, muscles, and the tissues thatsurround them. This pain can occur in any part of the body. It can last for a short time (acute) ora long time (chronic). A physical exam, lab tests, and imaging studies may be done to find the cause of your musculoskeletal pain. Follow these instructions at home: Lifestyle Try to control or lower your stress levels. Stress increases muscle tension and can worsen musculoskeletal pain. It is important to recognize when you are anxious or stressed and learn ways to manageit. This may include: ?Meditation or yoga. ?Cognitive or behavioral therapy. ?Acupuncture or massage therapy. You may continue all activities unless the activities cause more pain. When the pain gets better, slowly resume your normal activities. Gradually increase the intensity and duration of your activities or exercise. Managing pain, stiffness, and swelling Treatment may include medicines for pain and inflammation that are taken by mouth or applied to theskin. Take iuep-tzy-qfgegez and prescription medicines only as told by your health care provider. When your pain is severe, bed rest may be helpful. Lie or sit in any position that is comfortable, but get out of bed and walk around at least every couple of hours. If directed, apply heat to the affected area as often as told by your health care provider. Use theheat source that your health care provider recommends, such as a moist heat pack or a heating pad. ?Place a towel between your skin and the heat source. ?Leave the heat on for 20 30 minutes. ?Remove the heat if your skin turns bright red. This is especially important if you are unable to feel pain, heat, or cold. You may have a greater risk of getting burned. If directed, put ice on the painful area. To do this: ?Put ice in a plastic bag. ?Place a towel between your skin and the bag. ?Leave the ice on for 20 minutes, 2 3 times a day. ?Remove the ice if your skin turns bright red. This is very important. If you cannot feel pain, heat, or cold, you have a greater risk of damage to the area. General instructions Your health care provider may recommend that you see a physical therapist. This person can help youcome up with a safe exercise program. If told by your health care provider, do physical therapy exercises to improve movement and strength in the affected area. Keep all follow-up visits. This is important. This includes any physical therapy visits. Contact a health care provider if: Your pain gets worse. Medicines do not help ease your pain. You cannot use the part of your body that hurts, such as your arm, leg, or neck. You have trouble sleeping. You have trouble doing your normal activities. Get help right away if: You have a new injury and your pain is worse or different. You feel numb or you have tingling in the painful area. Summary Musculoskeletal pain refers to aches and pains in your bones, joints, muscles, and the tissues thatsurround them. This pain can occur in any part of the body. Your health care provider may recommend that you see a physical therapist. This person can help youcome up with a safe exercise program. Do any exercises as told by your physical therapist. Lower your stress level. Stress can worsen musculoskeletal pain. Ways to lower stress may include meditation, yoga, cognitive or behavioral therapy, acupuncture, and massage therapy. This information is not intended to replace advice given to you by your health care provider. Make sure you discuss any questions you have with your health care provider. Document Revised: 12/27/2020 Document Reviewed: 12/05/2020 [employer] Patient Education 2022 [employer]. 02/18/2023 09:31:38 Pain Without a Known Cause Pain Without a Known Cause Pain can occur in any part of the body and can range from mild to severe. Sometimes no cause can befound for pain. Some common types of pain that can occur without a known cause include: Headache. Back pain. Abdominal pain. Neck pain. Your health care provider may do tests to try to find the cause of your pain. If no cause is found,your health care provider will treat you for pain without a known cause. In some cases, your health care provider may do more tests, repeat tests that have already been done, and look further for a possible cause. Follow these instructions at home: Medicines Take kqki-jac-mgyhedo and prescription medicines only as told by your health care provider. Ask your health care provider if the medicine prescribed to you: ?Requires you to avoid driving or using machinery. ?Can cause constipation. You may need to take these actions to prevent or treat constipation: ? Drink enough fluid to keep your urine pale yellow. ?Take hosi-xhp-ymnvjqx or prescription medicines. ?Eat foods that are high in fiber, such as beans, whole grains, and fresh fruits and vegetables. ?Limit foods that are high in fat and processed sugars, such as fried and sweet foods. Managing pain, stiffness, and swelling If directed, put ice on the painful area. To do this: ?Put ice in a plastic bag. ?Place a towel between your skin and the bag. ?Leave the ice on for 20 minutes, 2 3 times a day. ?Remove the ice if your skin turns bright red. This is very important. If you cannot feel pain, heat, or cold, you have a greater risk of damage to the area. If directed, apply heat to the affected area. Use the heat source that your health care provider recommends, such as a moist heat pack or a heating pad. ?Place a towel between your skin and the heat source. ?Leave the heat on for 20 30 minutes. ?Remove the heat if your skin turns bright red. This is especially important if you are unable to feel pain, heat, or cold. You may have a greater risk of getting burned. General instructions Stop any activities that cause pain. Rest as told by your health care provider during periods of severe pain. Return to your normal activities as told by your health care provider. Ask your health care provider what activities are safe for you. Exercise regularly. Reduce your stress with activities such as yoga or meditation. Talk with your health care provider about other ways to reduce stress. Eat a balanced diet that includes fruits and vegetables, whole grains, lean meat, and low-fat dairy. Talk with your health care provider if you have any questions about your diet. Contact a health care provider if: You have continuing pain, and no reason can be found for it. Your symptoms do not get better after treatment. Get help right away if: Your pain is making you want to harm yourself. Get help right away if you feel like you may hurt yourself or others, or have thoughts about takingyour own life. Go to your nearest emergency room or: Call 911. Call the National Suicide Prevention Lifeline at or 870. This is open 24 hours a day. Text the Crisis Text Line at 094199. Summary Pain can occur in any part of the body and can range from mild to severe. Your health care provider may do tests to try to find the cause of your pain. If no cause is found,your health care provider may diagnose you with pain without a known cause. To help your pain, take medicines as told by your health care provider, apply ice or heat, exercise, reduce stress, and eat a healthy diet. This information is not intended to replace advice given to you by your health care provider. Make sure you discuss any questions you have with your health care provider. Document Revised: 04/23/2022 Document Reviewed: 04/23/2022 [employer] Patient Education 2022 [employer]. 02/18/2023 09:31:38 Cellulitis, Adult, Qovg-zs-Dvot Cellulitis, Adult Cellulitis is a skin infection. The infected area is often warm, red, swollen, and sore. It occurs most often in the arms and lower legs. It is very important to get treated for this condition. What are the causes? This condition is caused by bacteria. The bacteria enter through a break in the skin, such as a cut, burn, insect bite, open sore, or crack. What increases the risk? This condition is more likely to occur in people who: Have a weak body defense system (immune system). Have open cuts, amezquita, bites, or scrapes on the skin. Are older than 60 years of age. Have a blood sugar problem (diabetes). Have a long-lasting (chronic) liver disease (cirrhosis) or kidney disease. Are very overweight (obese). Have a skin problem, such as: ?Itchy rash (eczema). ?Slow movement of blood in the veins (venous stasis). ?Fluid buildup below the skin (edema). Have been treated with high-energy rays (radiation). Use IV drugs. What are the signs or symptoms? Symptoms of this condition include: Skin that is: ?Red. ?Streaking. ?Spotting. ?Swollen. ?Sore or painful when you touch it. ?Warm. A fever. Chills. Blisters. How is this diagnosed? This condition is diagnosed based on: Medical history. Physical exam. Blood tests. Imaging tests. How is this treated? Treatment for this condition may include: Medicines to treat infections or allergies. Home care, such as: ?Rest. ?Placing cold or warm cloths (compresses) on the skin. Hospital care, if the condition is very bad. Follow these instructions at home: Medicines Take jtrl-tgd-zotadpd and prescription medicines only as told by your doctor. If you were prescribed an antibiotic medicine, take it as told by your doctor. Do not stop taking it even if you start to feel better. General instructions Drink enough fluid to keep your pee (urine) pale yellow. Do not touch or rub the infected area. Raise (elevate) the infected area above the level of your heart while you are sitting or lying down. Place cold or warm cloths on the area as told by your doctor. Keep all follow-up visits as told by your doctor. This is important. Contact a doctor if: You have a fever. You do not start to get better after 1 2 days of treatment. Your bone or joint under the infected area starts to hurt after the skin has healed. Your infection comes back. This can happen in the same area or another area. You have a swollen bump in the area. You have new symptoms. You feel ill and have muscle aches and pains. Get help right away if: Your symptoms get worse. You feel very sleepy. You throw up (vomit) or have watery poop (diarrhea) for a long time. You see red streaks coming from the area. Your red area gets larger. Your red area turns dark in color. These symptoms may represent a serious problem that is an emergency. Do not wait to see if the symptoms will go away. Get medical help right away. Call your local emergency services (911 in the [place] Do not drive yourself to the hospital. Summary Cellulitis is a skin infection. The area is often warm, red, swollen, and sore. This condition is treated with medicines, rest, and cold and warm cloths. Take all medicines only as told by your doctor. Tell your doctor if symptoms do not start to get better after 1 2 days of treatment. This information is not intended to replace advice given to you by your health care provider. Make sure you discuss any questions you have with your health care provider. Document Revised: 06/05/2022 Document Reviewed: 06/05/2022 [employer] Patient Education 2022 [employer]. Follow Up Care 02/18/2023 07:42:07 With:THEO BURKS Address:Unknown When:02/21/2023 09:01:56 Comments:Follow-up with your primary care provider in 3 to 5 days. If symptoms worsen, do not improve, or new symptoms arise please report back to emergency department for further evaluation. [facility]05-16-2023 NotePOST-PROCEDURE NOTE Procedure: Transjugular liver biopsy with pressure measurements Pre-operative Diagnosis: Cirrhosis, diagnostic evaluation Post-operative Diagnosis: Portal hypertension, cirrhosis Attending: Erica Rock MD Rehab Tech: Leon Hernadez MD (attending) Brayan Babin MD (resident) A TIME OUT was performed prior to the procedure using active communication to verify correct patient, procedure, and site: Yes Intraoperative Medications: Medications Medication Event Details Admin User Admin Time midazolam (VERSED) 2 MG/2ML injection Medication Given Dose: 1 mg; Route: Intravenous Push Rachel Ireland RN 01/20/2023 8:28 AM fentaNYL (SUBLIMAZE) 100 MCG/2ML injection Medication Given Dose: 50 mcg; Route: Intravenous Push Rachel Ireland RN 01/20/2023 8:28 AM midazolam (VERSED) 2 MG/2ML injection Medication Given Dose: 1 mg; Route: Intravenous Push Rich Rubalcava RN 01/20/2023 8:34 AM fentaNYL (SUBLIMAZE) 100 MCG/2ML injection Medication Given Dose: 50 mcg; Route: Intravenous Push Rich Rubalcava RN 01/20/2023 8:34 AM fentaNYL (SUBLIMAZE) 100 MCG/2ML injection Medication Given Dose: 50 mcg; Route: Intravenous Push Rich Rubalcava RN 01/20/2023 8:54 AM midazolam (VERSED) 2 MG/2ML injection Medication Given Dose: 0.5 mg; Route: Intravenous Push Rich Rubalcava RN 01/20/2023 8:54 AM fentaNYL (SUBLIMAZE) 100 MCG/2ML injection Medication Given Dose: 50 mcg; Route: Intravenous Push Rich Rubalcava RN 01/20/2023 9:09 AM midazolam (VERSED) 2 MG/2ML injection Medication Given Dose: 0.5 mg; Route: Intravenous Push Rich Rubalcava RN 01/20/2023 9:09 AM iohexol (OMNIPAQUE) 350 MG/ML injection Medication Given Dose: 40 mL; Route: Other; Scheduled Time: 9:23 AM Alin Koch 01/20/2023 9:23 AM HYDROmorphone (DILAUDID) 2 MG/ML injection Medication Given Dose: 0.5 mg; Route: Intravenous Push Rich Rubalcava RN 01/20/2023 9:34 AM midazolam (VERSED) 2 MG/2ML injection Medication Given Dose: 1 mg; Route: Intravenous Rich Flores RN 01/20/2023 9:49 AM HYDROmorphone (DILAUDID) 2 MG/ML injection Medication Given Dose: 1 mg; Route: Intravenous Push Rich Rubalcava RN 01/20/2023 10:03 AM Complications: None Specimens: N/A Estimated Blood Loss: less than 10 cc Post Procedure Pain Ratin/10 Findings: Technically successful RIJ transvenous liver biopsy and pressure measurements. RA=18 RHV=14 HV wedge=32. RIJ secured with manual pressure. Plan: -f/u pathology results -f/u hepatology Please see procedure dictation in EPIC/PACS for full procedural details. Dr. Rock was present for the critical portion of the procedure. Brayan Babin MD [facility] NotePre-Procedure Note HISTORY: Procedure: Transjugular liver biopsy and pressures Indication: 37 yo male with PMH of cirrhosis likely 2/2 to alcohol use and hemolytic anemia who presents to IR for transjugular liver biopsy with portal pressures. 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 Current Outpatient Medications Medication Sig Dispense Refill hydrOXYzine pamoate (Vistaril) 25 MG capsule Take 1 Capsule by mouth 3 times daily as needed for Itching. 90 Capsule 3 spironolactone (Aldactone) 50 MG tablet Take 1 Tablet by mouth daily. 90 Tablet 3 diclofenac (VOLTAREN) 1 % GEL topical gel Apply 4 g topically 4 times daily as needed for Pain (in leg joints). 1 Tube 2 lidocaine (LIDODERM) 5 % patch Place 1 Patch on the skin every 24 hours. 10 Patch 3 furosemide (LASIX) 20 MG tablet take 1 tablet by mouth once daily 90 Tablet 3 potassium chloride SA (K-DUR) 20 MEQ controlled release tablet Take 1 Tablet by mouth daily. 10 Tablet 0 sulfamethoxazole-trimethoprim 800-160 MG (Bactrim DS) 800-160 MG per tablet Take 1 Tablet by mouth every Thursday, , Thursday. 12 Tablet 3 lactulose 20 g/30 mL SOLN oral solution Take 30 mL by mouth 4 times daily as needed. Titrate 2-3 bowel movements/day 946 mL 3 famotidine (Pepcid) 20 MG tablet Take 1 Tablet by mouth 2 times daily. 60 Tablet 3 ondansetron (ZOFRAN-ODT) 4 MG disintegrating tablet Take 1 Tablet by mouth every 12 hours as needed for Nausea. Place 1 tablet under tongue as needed for nausea. 30 Tablet 0 mupirocin (BACTROBAN) 2 % ointment Apply topically 3 times daily. Apply thin layer to affected area. 30 g 0 vitamin B-1 (THIAMINE) 100 MG tablet Take 1 Tablet by mouth daily. 90 Tablet 3 Multiple Vitamin (Multi-Vitamins) tablet Take 1 Tablet by mouth daily. 90 Tablet 3 folic acid 1 MG tablet Take 1 Tablet by mouth daily. 90 Tablet 3 mycophenolate (CELLCEPT) 500 MG tablet Take 1 Tablet by mouth 2 times daily. 120 Tablet 3 esomeprazole (NEXIUM) 40 MG capsule Take 1 Capsule by mouth daily (30 minutes before breakfast). 28 Capsule 1 Allergies: Amoxacillin [amoxicillin] PHYSICAL EXAM: Blood pressure 148/77, pulse 106, temperature 98.7 ???F (37.1 ???C), temperature source Oral, resp. rate 18, SpO2 100 %. Lungs: Clear to auscultation bilaterally Heart: Regular rate and rhythm Pertinent Findings: jaundice Labs Reviewed? Yes Recent Labs: Result for specified components in the past 45 days Component Date/Time Result Units Hemoglobin 01/12/2023 2:20 PM 12.1 g/dL Hematocrit 01/12/2023 2:20 PM 35.4 % Platelet 01/12/2023 2:20 PM 110 K/uL PTT --- not found Protime 01/12/2023 2:20 PM 21.0 sec INR 01/12/2023 2:20 PM 1.87 FXAUN --- not found ANTIFXALMWHE --- not found Creatinine 01/12/2023 2:20 PM 0.60 mg/dL Planned Sedation: Moderate Planned Sedation Medications: VERSED (midazolam) and fentanyl ASA Classification: Class II: Individual with one system well controlled disease. Disease does not affect daily living. Mallampati Airway Assessment: Class I Uvula, faucial pillars, soft palate visible Patient or family history of adverse reactions involving sedation/anesthesia: No patient or family history of adverse reaction PRE-PROCEDURE VERIFICATION: Site of Procedure: not applicable Site Marked pre-procedure: N/A Pre-Procedure Pain Ratin/10 Advanced Directives (Living will, health care power of senior trial attorney): none Patient Recent Code Status: Prior Code Status For This Procedure: Full Code Dorota Aj MD [facility] History of Present illness Narrative* Meka Lucas RN - 01/12/2023 11:11 AM EDT Labs drawn peripherally from right forearm. documented in this [id number] History of Present illness Narrative* Gustabo Ritchie - 01/12/2023 9:55 AM EDT Patient was identified by name and date of . Gustabo Pittman Body Mass Index is 27.28. Body Surface Area is 1.91 square meters according to the formula of Eli and Eli. Patient at risk for falls:No Falls Risk protocol implemented: No Blood pressure 121/56, pulse 79, temperature 96.6 F (35.9 C), resp. rate 20, height 5' 7 (1.702 m), weight 174 lb 3.2 oz (79 kg), SpO2 100 %. Gustabo Pittman documented in this [id number] History of Present illness Narrative* April Jewell - 01/12/2023 8:57 AM EDT Patient was identified by name and date of . April Jewell Patient at risk for falls:No Falls Risk protocol implemented: No * Marcello Ibanez MD - 01/12/2023 8:55 AM EDT Images from the original note were not included. Department of Gastroenterology and Hepatology Hepatology Clinic Follow Up Visit GI Attending Physician: Dr. Haley Gary MD PCP: Theo Burks MD Last GI Visit: 08/25/22 Background History Will Ramo is a 36 year old male with history notable for EtOH cirrhosis (decompensated by ascites), autoimmune hemolytic anemia (on cellcept) who was referred to hepatology clinic for EtOH cirrhosis with worsening hyperbilirubinemia despite quitting EtOH x 6 months (last use 01/2022). Course also c/b LE edema and ascites with recent ED visit for RLE cellulitis for which he completed 7 d of PO Keflex. Interval History He still notes swelling in his legs that improve with water pills and elevation. He feels he has totake the water pills regularly to keep the water off his legs. He has some itching in his legs which hydroxyzine helps with. He continues to avoid alcohol (he stopped drinking 12 pack daily Spring 2021). No rehabilitation or AA, just stopped. Denies nausea, vomiting, hematemesis, melena, black stools or blood in stools, abdominal swelling or leg swelling, change in sleep/wake cycle, or episodes of confusion. Past medical, surgical, family and social histories reviewed and updated as appropriate. Review Of Systems Positives as noted in HPI. All other systems were reviewed and negative. Current Medications Allergies Allergen Reactions Amoxacillin [Amoxicillin] Current Outpatient Medications Medication Sig Dispense Refill hydrOXYzine pamoate (Vistaril) 25 MG capsule Take 1 Capsule by mouth 3 times daily as needed for Itching. 90 Capsule 3 spironolactone (Aldactone) 50 MG tablet Take 1 Tablet by mouth daily. 90 Tablet 3 diclofenac (VOLTAREN) 1 % GEL topical gel Apply 4 g topically 4 times daily as needed for Pain (in leg joints). 1 Tube 2 lidocaine (LIDODERM) 5 % patch Place 1 Patch on the skin every 24 hours. 10 Patch 3 furosemide (LASIX) 20 MG tablet take 1 tablet by mouth once daily 90 Tablet 3 potassium chloride SA (K-DUR) 20 MEQ controlled release tablet Take 1 Tablet by mouth daily. 10 Tablet 0 sulfamethoxazole-trimethoprim 800-160 MG (Bactrim DS) 800-160 MG per tablet Take 1 Tablet by mouth every Thursday, , Thursday. 12 Tablet 3 lactulose 20 g/30 mL SOLN oral solution Take 30 mL by mouth 4 times daily as needed. Titrate 2-3 bowel movements/day 946 mL 3 famotidine (Pepcid) 20 MG tablet Take 1 Tablet by mouth 2 times daily. 60 Tablet 3 ondansetron (ZOFRAN-ODT) 4 MG disintegrating tablet Take 1 Tablet by mouth every 12 hours as neededfor Nausea. Place 1 tablet under tongue as needed for nausea. 30 Tablet 0 mupirocin (BACTROBAN) 2 % ointment Apply topically 3 times daily. Apply thin layer to affected area. 30 g 0 vitamin B-1 (THIAMINE) 100 MG tablet Take 1 Tablet by mouth daily. 90 Tablet 3 Multiple Vitamin (Multi-Vitamins) tablet Take 1 Tablet by mouth daily. 90 Tablet 3 folic acid 1 MG tablet Take 1 Tablet by mouth daily. 90 Tablet 3 mycophenolate (CELLCEPT) 500 MG tablet Take 1 Tablet by mouth 2 times daily. 120 Tablet 3 esomeprazole (NEXIUM) 40 MG capsule Take 1 Capsule by mouth daily (30 minutes before breakfast). 28Capsule 1 No current facility-administered medications for this visit. Physical Exam BP 121/56 Pulse 79 Temp 96.6 F (35.9 C) (Temporal) Wt 175 lb (79.4 kg) BMI 27.41 kg/m PHYSICAL EXAMINATION: GEN: WD, WN in NAD HEENT: no JVD, cervical adenopathy, anicteric sclera Lungs: CTAB no c/r/r/wheezing. No increased work of breathing CV: Regular rate, no murmurs, rubs or gallops. Normal PMI ABD: soft non-distended, non-tender, normoactive bowel sounds, no fluid wave present, no hepatosplenomegaly Ext: no peripheral edema, peripheral pulses intact bilaterally Neuro: no gross sensory/motor deficits, AOx3, no asterixis Psych: normal affect, linear thought Skin: <1 second capillary refill, good skin turgor. No spider angiomata Labs CBC (last 3 years, up to 5 values) (Last 5 results in the past 3 years) WBC RBC Hgb Hct MCV RDW Plt 11/13/22 1158 5.7 2.69 10.4 29.4 109 15.8 82 08/25/22 1241 5.7 3.11 11.6 33.5 108 15.8 131 08/14/22 1203 9.2 3.03 11.6 31.8 105 14.8 100 05/06/22 1039 4.2 3.21 11.5 32.5 101 16.8 90 03/13/22 1159 4.0 2.81 9.9 28.4 101 16.2 114 Basic Metabolic Panel (Last 5 results in the past 3 years) Na K Cl CO2 Gap Glu BUN Cr Ca 11/13/22 1158 139 3.1 102 30 10 70 5 0.50 8.7 08/25/22 1241 138 3.3 101 26 14 55 5 0.55 8.4 08/14/22 1203 132 3.0 97 24 14 89 5 0.55 7.9 05/06/22 1039 137 3.6 105 25 11 79 3 0.58 Comment: Grossly icteric; may falsely decrease creatinine 8.9 03/13/22 1159 135 3.6 103 25 11 119 3 0.51 Comment: Grossly icteric; may falsely decrease creatinine 8.2 LFT's (last 3 years, up to 5 values) (Last 5 results in the past 3 years) T Prot Albumin D Bili T Bili Alk Phos ALT AST 11/13/22 1158 7.0 2.9 1.88 6.9 386 36 68 08/25/22 1241 7.2 3.0 2.20 7.7 389 56 103 08/14/22 1203 6.4 2.9 2.83 10.6 Comment: Elevated bilirubin may falsely lower creatinine 245 47 96 05/06/22 1039 6.7 3.0 1.50 8.3 373 47 87 03/13/22 1159 6.2 2.6 1.20 5.6 278 33 68 INR (no units) Date Value 11/13/2022 1.71 (H) 01/17/2022 1.97 (H) 01/16/2022 2.08 (H) 01/15/2022 1.89 (H) 01/14/2022 1.94 (H) AFP (ng/mL) Date Value 11/13/2022 4.4 Imaging US liver 08/21/2022 IMPRESSION: Limited examination. Cirrhotic liver without a focal suspicious hepatic lesion, within the limitations of the exam. Patent and appropriately direction of flow of the imaged vasculature Trace to small volume upper abdominal ascites. Cholelithiasis GI Procedures none ASSESSMENT AND PLAN Will Anderson is a 36 year old male with history notable for EtOH cirrhosis (decompensated by ascites), autoimmune hemolytic anemia (previously on cellcept) who was referred to hepatology clinic for EtOH cirrhosis with hyperbilirubinemia despite quitting EtOH x 6 months (last use 01/2022). As previously noted he does have hemolytic anemia which could be driving hyperbilirubinemia. He hasbeen following with heme/onc and was taking MMF but is no longer taking it and was planning to discuss further with hematology later this morning. Component 01/08/2022 01/09/2022 08/25/2022 Iron 145 237 (H) %SAT 68 (H) 96 (H) TIBC 214 (L) 248 (L) Transferrin, Serum 153 (L) 177 (L) HBsAg Non-Reactive Ferritin 829.1 (H) 346.0 (H) Hep B Surface Ab <3.1 Hep B Core Ab Total Nonreactive Hepatitis C Ab Nonreactive Hepatitis C RNA Quant Not Detected Hep A Ab Total Reactive (A) Hep A Ab IgM Nonreactive Ammonia 74 (H) GEOVANNA SCRN Negative Smooth Muscle Ab Screen Negative IgG, Quantitative 1,995 (H) MELD-Na score: 20 at 11/13/2022 11:58 AM MELD score: 20 at 11/13/2022 11:58 AM Calculated from: Serum Creatinine: 0.50 mg/dL (Using min of 1 mg/dL) at 11/13/2022 11:58 AM Serum Sodium: 139 mmol/L (Using max of 137 mmol/L) at 11/13/2022 11:58 AM Total Bilirubin: 6.9 mg/dL at 11/13/2022 11:58 AM INR(ratio): 1.71 at 11/13/2022 11:58 AM Age: 37 years # EtOH steatosis with previous alcoholic hepatitis # Unclear if cirrhotic # Worsening hyperbilirubinemia - No ongoing alcohol use since 01/2022, encouraged to continue same - MELD labs ordered to be done today - Scheduled transjugular liver biopsy with measurement of portal pressures to assess if truly cirrhotic - Patient has no personal h/o cancer, no DUIs, good social support at this time # LE pitting edema - Will continue Lasix 20 mg PO and Aldactone 50 mg PO # Esophageal varices screening: - EGD scheduled for 09/2022 but he missed appointment, patient will reschedule when he is able to - Platelets 82 05/16/23 # Hepatocellular carcinoma surveillance program: - Last RUQ US 08/2022, will repeat q6 monthly # Hepatic encephalopathy: - No hepatic encephalopathy noted - Started on lactulose for constipation with good response - Advised to titrate same to ensure 2-3 soft BM.day # Colon cancer screening: - Due at age 44 # Age-appropriate vaccinations: - Hep B series 2/3, next to be given at f/u visit Follow up with me in 3 months. The patient indicates understanding of these issues and agrees with the plan. Discussed with Attending Dr. Haley Gary MD. Marcello Ibanez MD Gastroenterology Fellow Division of Gastroenterology & Hepatology [facility] 01/12/23, 9:01 AM Associated attestation - Haley Gary MD - 01/12/2023 10:33 AM EDT Attending addendum: Complex case with autoimmune hemolytic anemia and jaundice, thrombocytopenia, which could be due tohematological d/o or cirrhosis (given ETOH history). No ETOH since over 1 year ago. Once again we discussed liver biopsy to evaluate if cirrhotic, patient was agreeable before (didn'tget it scheduled) and now. He now has it scheduled for next week. Transjugular biopsy given thrombocytopenia (?portal hypertension) and INR. We had a detailed discussion regarding the risks verses benefits from a liver biopsy and the potentially useful information that could be gained. I discussed the complications from a biopsy which include pain (30%), bleeding (0.5%), damage to other organs (less than 1 in 1000), and major complications including need for surgery (less than 1 in 1000). Viral hepatitis, hemochromatosis, and AIH testing have been negative. I saw and evaluated the patient. I personally obtained the critical portions of the history and physical exam. The case was discussed in detail with the fellow; including, but not limited to the chief complaint, HPI, past history, physical findings, labs and radiological findings. I agree with the fellow's medical decision making as documented in the fellow's note. The patient was counseled on the possible differential diagnoses and testing needed to arrive at a diagnosis or a treatment plan. Haley Gary MD Division of Gastroenterology & Hepatology [facility] documented in this [id number] Instructions* Patient Instructions* Dejuan Lechuga MD - 12/16/2022 10:23 AM EDT [facility] [phone] [address] [address] [place] [address] Lab tests can be done at a scheduled visit, or by appointment. [facility] [phone] [place] [address] Park in the Outpatient [place] [facility] (P9) Under the [facility]. Pathology is located in the [facility] [place] of the Out[facility] [place] on the 2nd floor.Please fill out the paper form at the front desk agent then have a seat in the Outpatient Blood Draw Lab (Pathology) waiting area. Hours Thursday 07:00 AM - 05:30 PM Thursday 07:00 AM - 05:30 PM Thursday 07:00 AM - 05:30 PM 07:00 AM - 05:30 PM Thursday 07:00 AM - 05:30 PM [facility] [phone] [place] [address] Follow the overhead sign to [place]: Radiology/X-ray & Lab (right arrow). Check in for testing at the Radiology & Lab Freelance Operator window. Hours Thursday 10:00 AM - 02:00 PM Thursday 08:00 AM - 07:30 PM Thursday 08:00 AM - 07:30 PM Thursday 08:00 AM - 07:30 PM 08:00 AM - 07:30 PM Thursday 08:00 AM - 07:30 PM Thursday 08:00 AM - 04:00 PM [facility] [phone] [place] [address] Draper at the front desk agent and you will be directed to the waiting area. Laboratory staff will takeyou back to the laboratory. Hours Thursday 10:00 AM - 02:00 PM Thursday 07:30 AM - 07:30 PM Thursday 07:30 AM - 07:30 PM Thursday 07:30 AM - 07:30 PM 07:30 AM - 07:30 PM Thursday 07:15 AM - 07:45 PM Thursday 08:00 AM - 04:00 PM [facility] [phone] [place], [place] [id number] Enter through the front door and continue towards the back of the building. The laboratory is located on the right side. Follow the sign to Express Care / Lab Check-In . Hours Thursday 10:00 AM - 02:00 PM Thursday 07:30 AM - 07:30 PM Thursday 07:30 AM - 07:30 PM Thursday 07:30 AM - 07:30 PM 07:30 AM - 07:30 PM Thursday 07:30 AM - 07:30 PM Thursday 08:00 AM - 04:00 PM [facility] [phone] [place], [place] [id number] The [facility] is located on the first floor, room A1-143. Enter at the east entrance and follow the overhead sign to Laboratory (left arrow). On the left side of the rodrigues you will see a sign Welcome to the Laboratory . Hours Thursday 07:30 AM - 05:00 PM Thursday 07:30 AM - 05:00 PM Thursday 07:30 AM - 05:00 PM 07:30 AM - 05:00 PM Thursday 07:30 AM - 05:00 PM [facility] [phone] [address] [id number] The [facility] is located on the first floor, room [id number]. Enter through the Emergency doors and follow the signs to Medical Offices , making a right turn. Draper at the Registration 1A desk at the end of the hallway, then proceed to the Laboratory on the right. Hours Thursday 07:30 AM - 05:00 PM Thursday 07:30 AM - 05:00 PM Thursday 07:30 AM - 05:00 PM 07:30 AM - 05:00 PM Thursday 07:30 AM - 05:00 PM [facility] [phone] [place], [place] [id number] The [facility] is located on the first floor, room 1201. Enter through the Emergency doors, go straight ahead and follow overhead signs to Main Hospital Services and Lab (right arrow). The Laboratory is located on the right side of the hallway. Hours Thursday 08:00 AM - 05:00 PM Thursday 08:00 AM - 05:00 PM Thursday 08:00 AM - 05:00 PM 08:00 AM - 05:00 PM Thursday 08:00 AM - 05:00 PM documented in this [id number] History of Present illness Narrative* Dejuan Lechuga MD - 12/16/2022 10:19 AM EDT Images from the original note were not included. Chief Complaint: Will Anderson comes to the clinic today for: Chief Complaint Patient presents with follow up Had an accident at work and fell. Present Illness: Mr.Amos Anderson comes to the clinic today for the above listed conditions. Patient fell in a hole and fell on left side. States pain has much improved since the fall. Patienthasn't tried lidocaine patch yet. Denies shortness of breath, wheezing. Coughing makes pain worse. For liver cirrhosis patient is following with GI. States he ran out of aldactone and his symptoms of leg edema worsens. Wants a refill of meds. History Review: He has a past medical history of Closed fracture of angle of jaw (HCC), HLA B27 (HLA B27 positive) (2003), and Open fracture of other and unspecified part of body of mandible. Social History Socioeconomic History Marital status: Single Tobacco Use Smoking status: Former Types: Cigarettes Smokeless tobacco: Current Types: Chew No family history on file. There is no previous surgical history on file. Diagnostics: [facility] laboratory/diagnostics reviewed and Outside laboratory/diagnostics reviewed Review of Systems As per HPI Exam: Vitals Recorded in This Encounter 12/16/2022 0949 BP: 113/57 Pulse: 85 BP position: sitting SpO2: 100 % Weight: 179 lb 1.6 oz (81.2 kg) Height: 5' 7 (1.702 m) Physical Exam Vitals and nursing note reviewed. Constitutional: General: He is not in acute distress. Appearance: Normal appearance. He is not ill-appearing. Cardiovascular: Rate and Rhythm: Normal rate and regular rhythm. Heart sounds: No murmur heard. No friction rub. No gallop. Pulmonary: Effort: Pulmonary effort is normal. No respiratory distress. Breath sounds: Normal breath sounds. No stridor. No wheezing, rhonchi or rales. Chest: Chest wall: Tenderness (mild tender on left lower ribs.) present. Abdominal: General: Bowel sounds are normal. There is no distension. Tenderness: There is no abdominal tenderness. There is no guarding. Hernia: No hernia is present. Skin: Capillary Refill: Capillary refill takes less than 2 seconds. Neurological: General: No focal deficit present. Mental Status: He is alert and oriented to person, place, and time. Psychiatric: Mood and Affect: Mood normal. Behavior: Behavior normal. Thought Content: Thought content normal. Judgment: Judgment normal. Basic Metabolic Panel (Last 5 results in the past 3 years) Na K Cl CO2 Gap Glu BUN Cr Ca 11/13/22 1158 139 3.1 102 30 10 70 5 0.50 8.7 08/25/22 1241 138 3.3 101 26 14 55 5 0.55 8.4 08/14/22 1203 132 3.0 97 24 14 89 5 0.55 7.9 05/06/22 1039 137 3.6 105 25 11 79 3 0.58 Comment: Grossly icteric; may falsely decrease creatinine 8.9 03/13/22 1159 135 3.6 103 25 11 119 3 0.51 Comment: Grossly icteric; may falsely decrease creatinine 8.2 CBC (last 3 years, up to 5 values) (Last 5 results in the past 3 years) WBC RBC Hgb Hct MCV RDW Plt 11/13/22 1158 5.7 2.69 10.4 29.4 109 15.8 82 08/25/22 1241 5.7 3.11 11.6 33.5 108 15.8 131 08/14/22 1203 9.2 3.03 11.6 31.8 105 14.8 100 05/06/22 1039 4.2 3.21 11.5 32.5 101 16.8 90 03/13/22 1159 4.0 2.81 9.9 28.4 101 16.2 114 No results found for: HBA1C Impression/Plan: Rib pain Will add - Diclofenac Sodium; Apply 4 g topically 4 times daily as needed for Pain (in leg joints). Alcoholic cirrhosis of liver without ascites (HCC) Will refill aldactone. F/u with GI in january. - hydrOXYzine Pamoate; Take 1 Capsule by mouth 3 times daily as needed for Itching. - Spironolactone; Take 1 Tablet by mouth daily. Orders & Meds Signed During This Encounter diclofenac (VOLTAREN) 1 % GEL topical gel hydrOXYzine pamoate (Vistaril) 25 MG capsule spironolactone (Aldactone) 50 MG tablet No follow-ups on file. Dejuan Lechuga MD * Aleja Rolon - 12/16/2022 9:45 AM EDT Patient was identified by name and date of . Aleja Rolon documented in this [id number] History of Present illness Narrative* Theo Burks MD - 12/15/2022 4:[address] [facility] Medicine Telemedicine Visit CC: Chief Complaint Patient presents with Fall HPI: Patient is a 37 year old cordero with a history of cirrhosis , autoimmune hemolytic anemia who presentsfor the below. 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 Fell forward and to the side. Elbow into left side, knocked wind out Coughing more, hurts when cough. One part is very tender to touch on the left No bruising noted Denies pain with deep breaths Need to sleep on back because of the pain Not taking any tylenol, told not take iburpofen Mychart Message 12/11 Good morning. I fell hard last week at work on my left side. Should I be concerned about it? Still hurts bad. From my lower shoulder to my hip. Patient has signed up for MyChart: Yes Patient past medical, social, family, and surgical history personally reviewed and updated in [facility]. OBJECTIVE: Sounds ewll, no acute distress Breathing comfrotably on room air ASSESSMENT AND PLAN: 1. Rib pain Orders & Meds Signed During This Encounter X-ray Ribs Left Unilateral (Routine) lidocaine (LIDODERM) 5 % patch Documentation: Mode: Telephone Patient Patient Work Phone: Patient Cell Preferred phone: [phone] Consent: I confirmed patient understanding of the risks and benefits of telehealth visits and obtained consent to proceed with the telehealth visit. Location of Patient: Home of patient Seen for rib pain after a fall. Pain with cough and palpation. No difficulty with breathing. Recommend lidocain patch and xr ribs. Patient would like to avoid oral medication. Has in person visit tomorrow. Concerned if any other internal damage, he will keep appointment so Dr. Lechuga can do a physical exam. RTC tomorrow as scheduled Theo Burks MD Family Medicine documented in this [id number] Telephone encounter Note* Telephone Encounter - Aleja Rolon - 12/15/2022 9:14 AM EDT Called patient and made appointment with tomorrcamille [id number] Miscellaneous Notes* Telephone Encounter - Aleja Rolon - 12/15/2022 9:14 AM EDT Called patient and made appointment with tomorrcamille documented in this [id number] History of Present illness Narrative* Marcello Ibanez MD - 10/27/2022 10:42 AM EST Images from the original note were not included. Department of Gastroenterology and Hepatology Hepatology Clinic Follow Up Visit GI Attending Physician: Dr. Haley Gary MD PCP: Theo Burks MD Last GI Visit: 08/25/22 Background History Will Anderson is a 36 year old male with history notable for EtOH cirrhosis (decompensated by ascites), autoimmune hemolytic anemia (on cellcept) who was referred to hepatology clinic for EtOH cirrhosis with worsening hyperbilirubinemia despite quitting EtOH x 6 months (last use 01/2022). Course also c/b LE edema and ascites with recent ED visit for RLE cellulitis for which he completed 7 d of PO Keflex. Interval History He was placed on water pills the last visit because of swelling in his legs and that helped. After the one month he took them he ran out. He then was having some decreased urination for sometime until he restarted medications and he is feeling better. He stopped drinking 12 pack daily up until Spring last year. No rehabilitation or AA, just stopped. Denies nausea, vomiting, hematemesis, melena, black stools or blood in stools, abdominal swelling or leg swelling, change in sleep/wake cycle, or episodes of confusion. Past medical, surgical, family and social histories reviewed and updated as appropriate. Review Of Systems Positives as noted in HPI. All other systems were reviewed and negative. Current Medications Allergies Allergen Reactions Amoxacillin [Amoxicillin] Current Outpatient Medications Medication Sig Dispense Refill furosemide (Lasix) 20 MG tablet Take 1 Tablet by mouth daily. 30 Tablet 0 spironolactone (Aldactone) 50 MG tablet Take 1 Tablet by mouth daily. 30 Tablet 0 ondansetron (ZOFRAN-ODT) 4 MG disintegrating tablet Take 1 Tablet by mouth every 12 hours as neededfor Nausea. Place 1 tablet under tongue as needed for nausea. 30 Tablet 2 mupirocin (BACTROBAN) 2 % ointment Apply topically 3 times daily. Apply thin layer to affected area. 30 g 0 lactulose 20 g/30 mL SOLN oral solution Take 30 mL by mouth 4 times daily as needed. Titrate 2-3 bowel movements/day 946 mL 3 vitamin B-1 (THIAMINE) 100 MG tablet Take 1 Tablet by mouth daily. 90 Tablet 3 Multiple Vitamin (Multi-Vitamins) tablet Take 1 Tablet by mouth daily. 90 Tablet 3 folic acid 1 MG tablet Take 1 Tablet by mouth daily. 90 Tablet 3 mycophenolate (CELLCEPT) 500 MG tablet Take 1 Tablet by mouth 2 times daily. 120 Tablet 3 esomeprazole (NEXIUM) 40 MG capsule Take 1 Capsule by mouth daily (30 minutes before breakfast). 28Capsule 1 No current facility-administered medications for this visit. Physical Exam BP 128/55 Pulse 84 Temp 97.5 F (36.4 C) (Temporal) Wt 169 lb 12.8 oz (77 kg) SpO2 100% BMI 26.59 kg/m General: well nourished, well groomed, pleasant, NAD HEENT: normocephalic, atraumatic, MMM, no scleral icterus Pulm: no increased WOB on room air, CTAB Card: RRR, no murmurs Abdomen: soft, nontender, nondistended, normal bowel sounds Extremities: no RENATO, no gross deformity Skin: WWP, no jaundice Neuro: A&Ox3, no focal deficits, moving all extremities, normal ambulation, no asterixis, no tremor or other abnormal movements Psych: appropriate mood and affect, linear thinking Labs CBC (last 3 years, up to 5 values) (Last 5 results in the past 3 years) WBC RBC Hgb Hct MCV RDW Plt 08/25/22 1241 5.7 3.11 11.6 33.5 108 15.8 131 08/14/22 1203 9.2 3.03 11.6 31.8 105 14.8 100 05/06/22 1039 4.2 3.21 11.5 32.5 101 16.8 90 03/13/22 1159 4.0 2.81 9.9 28.4 101 16.2 114 02/11/22 1115 4.9 2.69 10.0 29.1 108 17.1 81 Basic Metabolic Panel (Last 5 results in the past 3 years) Na K Cl CO2 Gap Glu BUN Cr Ca 08/25/22 1241 138 3.3 101 26 14 55 5 0.55 8.4 08/14/22 1203 132 3.0 97 24 14 89 5 0.55 7.9 05/06/22 1039 137 3.6 105 25 11 79 3 0.58 Comment: Grossly icteric; may falsely decrease creatinine 8.9 03/13/22 1159 135 3.6 103 25 11 119 3 0.51 Comment: Grossly icteric; may falsely decrease creatinine 8.2 02/11/22 1115 134 3.3 103 24 10 105 7 0.49 Comment: Grossly icteric; may falsely decrease creatinine 8.2 LFT's (last 3 years, up to 5 values) (Last 5 results in the past 3 years) T Prot Albumin D Bili T Bili Alk Phos ALT AST 08/25/22 1241 7.2 3.0 2.20 7.7 389 56 103 08/14/22 1203 6.4 2.9 2.83 10.6 Comment: Elevated bilirubin may falsely lower creatinine 245 47 96 05/06/22 1039 6.7 3.0 1.50 8.3 373 47 87 03/13/22 1159 6.2 2.6 1.20 5.6 278 33 68 02/11/22 1115 6.2 2.8 1.70 7.7 226 77 88 INR (no units) Date Value 01/17/2022 1.97 (H) 01/16/2022 2.08 (H) 01/15/2022 1.89 (H) 01/14/2022 1.94 (H) 01/13/2022 2.05 (H) No results found for: AFP Imaging US liver 08/21/2022 IMPRESSION: Limited examination. Cirrhotic liver without a focal suspicious hepatic lesion, within the limitations of the exam. Patent and appropriately direction of flow of the imaged vasculature Trace to small volume upper abdominal ascites. Cholelithiasis GI Procedures none ASSESSMENT AND PLAN Will Anderson is a 36 year old male with history notable for EtOH cirrhosis (decompensated by ascites), autoimmune hemolytic anemia (on cellcept) who was referred to hepatology clinic for EtOH cirrhosis with hyperbilirubinemia despite quitting EtOH x 6 months (last use 01/2022). He does have hemolyticanemia which could be driving hyperbilirubinemia. He has been following with heme/onc and taking MMF. Component 01/08/2022 01/09/2022 08/25/2022 Iron 145 237 (H) %SAT 68 (H) 96 (H) TIBC 214 (L) 248 (L) Transferrin, Serum 153 (L) 177 (L) HBsAg Non-Reactive Ferritin 829.1 (H) 346.0 (H) Hep B Surface Ab <3.1 Hep B Core Ab Total Nonreactive Hepatitis C Ab Nonreactive Hepatitis C RNA Quant Not Detected Hep A Ab Total Reactive (A) Hep A Ab IgM Nonreactive Ammonia 74 (H) GEOVANNA SCRN Negative Smooth Muscle Ab Screen Negative IgG, Quantitative 1,995 (H) # Decompensated EtOH cirrhosis # Alcoholic hepatitis # Worsening hyperbilirubinemia - No ongoing alcohol use since 01/2022, encouraged to continue same - Discussed need to see addiction medicine/recovery resources to help stay off alcohol but patient reports he is motivated to do this himself. Referral deferred for now - MELD labs ordered to be done today - Ordered transjugular liver biopsy with measurement of portal pressures to confirm diagnosis givenyoung age - Will hold off Fibroscan due to evidence of cirrhosis and portal hypertension on imaging - Patient has no personal h/o cancer, no DUIs, good social support at this time # Ascites, mild # LE pitting edema - Will continue Lasix 20 mg PO and Aldactone 50 mg PO # Esophageal varices screening: - EGD scheduled for 09/2022 but he missed appointment, will reschedule - Platelets 100 # Hepatocellular carcinoma surveillance program: - Last RUQ US 08/2022, will repeat q6 monthly # Hepatic encephalopathy: - No hepatic encephalopathy noted - Started on lactulose for constipation with good response - Advised to titrate same to ensure 2-3 soft BM.day # Colon cancer screening: - Due at age 44 # Age-appropriate vaccinations: - Hep B series 2/3, next to be given at f/u visit Follow up with me in 3 months. The patient indicates understanding of these issues and agrees with the plan. Discussed with Attending Dr. Haley Gary MD. Marcello Ibanez MD Gastroenterology Fellow Division of Gastroenterology & Hepatology [facility] 10/27/22, 10:43 AM * Eze Schilling - 10/27/2022 9:49 AM EST Patient was identified by name and date of . Eze FariaselianaomarPatient at risk for falls:No Falls Risk protocol implemented: No documented in this [id number] History of Present illness Narrative* Haley Gary MD - 10/27/2022 10:42 AM EST Images from the original note were not included. Department of Gastroenterology and Hepatology Hepatology Clinic Follow Up Visit GI Attending Physician: Dr. Haley Gary MD PCP: Theo Burks MD Last GI Visit: 08/25/22 Background History Will Anderson is a 36 year old male with history notable for EtOH cirrhosis (decompensated by ascites), autoimmune hemolytic anemia (on cellcept) who was referred to hepatology clinic for EtOH cirrhosis with worsening hyperbilirubinemia despite quitting EtOH x 6 months (last use 01/2022). Course also c/b LE edema and ascites with recent ED visit for RLE cellulitis for which he completed 7 d of PO Keflex. Interval History He was placed on water pills the last visit because of swelling in his legs and that helped. After the one month he took them he ran out. He then was having some decreased urination for sometime until he restarted medications and he is feeling better. He stopped drinking 12 pack daily up until Spring last year. No rehabilitation or AA, just stopped. Denies nausea, vomiting, hematemesis, melena, black stools or blood in stools, abdominal swelling or leg swelling, change in sleep/wake cycle, or episodes of confusion. Past medical, surgical, family and social histories reviewed and updated as appropriate. Review Of Systems Positives as noted in HPI. All other systems were reviewed and negative. Current Medications Allergies Allergen Reactions Amoxacillin [Amoxicillin] Current Outpatient Medications Medication Sig Dispense Refill furosemide (Lasix) 20 MG tablet Take 1 Tablet by mouth daily. 30 Tablet 0 spironolactone (Aldactone) 50 MG tablet Take 1 Tablet by mouth daily. 30 Tablet 0 ondansetron (ZOFRAN-ODT) 4 MG disintegrating tablet Take 1 Tablet by mouth every 12 hours as neededfor Nausea. Place 1 tablet under tongue as needed for nausea. 30 Tablet 2 mupirocin (BACTROBAN) 2 % ointment Apply topically 3 times daily. Apply thin layer to affected area. 30 g 0 lactulose 20 g/30 mL SOLN oral solution Take 30 mL by mouth 4 times daily as needed. Titrate 2-3 bowel movements/day 946 mL 3 vitamin B-1 (THIAMINE) 100 MG tablet Take 1 Tablet by mouth daily. 90 Tablet 3 Multiple Vitamin (Multi-Vitamins) tablet Take 1 Tablet by mouth daily. 90 Tablet 3 folic acid 1 MG tablet Take 1 Tablet by mouth daily. 90 Tablet 3 mycophenolate (CELLCEPT) 500 MG tablet Take 1 Tablet by mouth 2 times daily. 120 Tablet 3 esomeprazole (NEXIUM) 40 MG capsule Take 1 Capsule by mouth daily (30 minutes before breakfast). 28Capsule 1 No current facility-administered medications for this visit. Physical Exam BP 128/55 Pulse 84 Temp 97.5 F (36.4 C) (Temporal) Wt 169 lb 12.8 oz (77 kg) SpO2 100% BMI 26.59 kg/m General: well nourished, well groomed, pleasant, NAD HEENT: normocephalic, atraumatic, MMM, no scleral icterus Pulm: no increased WOB on room air, CTAB Card: RRR, no murmurs Abdomen: soft, nontender, nondistended, normal bowel sounds Extremities: no RENATO, no gross deformity Skin: WWP, no jaundice Neuro: A&Ox3, no focal deficits, moving all extremities, normal ambulation, no asterixis, no tremor or other abnormal movements Psych: appropriate mood and affect, linear thinking Labs CBC (last 3 years, up to 5 values) (Last 5 results in the past 3 years) WBC RBC Hgb Hct MCV RDW Plt 08/25/22 1241 5.7 3.11 11.6 33.5 108 15.8 131 08/14/22 1203 9.2 3.03 11.6 31.8 105 14.8 100 05/06/22 1039 4.2 3.21 11.5 32.5 101 16.8 90 03/13/22 1159 4.0 2.81 9.9 28.4 101 16.2 114 02/11/22 1115 4.9 2.69 10.0 29.1 108 17.1 81 Basic Metabolic Panel (Last 5 results in the past 3 years) Na K Cl CO2 Gap Glu BUN Cr Ca 08/25/22 1241 138 3.3 101 26 14 55 5 0.55 8.4 08/14/22 1203 132 3.0 97 24 14 89 5 0.55 7.9 05/06/22 1039 137 3.6 105 25 11 79 3 0.58 Comment: Grossly icteric; may falsely decrease creatinine 8.9 03/13/22 1159 135 3.6 103 25 11 119 3 0.51 Comment: Grossly icteric; may falsely decrease creatinine 8.2 02/11/22 1115 134 3.3 103 24 10 105 7 0.49 Comment: Grossly icteric; may falsely decrease creatinine 8.2 LFT's (last 3 years, up to 5 values) (Last 5 results in the past 3 years) T Prot Albumin D Bili T Bili Alk Phos ALT AST 08/25/22 1241 7.2 3.0 2.20 7.7 389 56 103 08/14/22 1203 6.4 2.9 2.83 10.6 Comment: Elevated bilirubin may falsely lower creatinine 245 47 96 05/06/22 1039 6.7 3.0 1.50 8.3 373 47 87 03/13/22 1159 6.2 2.6 1.20 5.6 278 33 68 02/11/22 1115 6.2 2.8 1.70 7.7 226 77 88 INR (no units) Date Value 01/17/2022 1.97 (H) 01/16/2022 2.08 (H) 01/15/2022 1.89 (H) 01/14/2022 1.94 (H) 01/13/2022 2.05 (H) No results found for: AFP Imaging US liver 08/21/2022 IMPRESSION: Limited examination. Cirrhotic liver without a focal suspicious hepatic lesion, within the limitations of the exam. Patent and appropriately direction of flow of the imaged vasculature Trace to small volume upper abdominal ascites. Cholelithiasis GI Procedures none ASSESSMENT AND PLAN Will Anderson is a 36 year old male with history notable for EtOH cirrhosis (decompensated by ascites), autoimmune hemolytic anemia (on cellcept) who was referred to hepatology clinic for EtOH cirrhosis with hyperbilirubinemia despite quitting EtOH x 6 months (last use 01/2022). He does have hemolyticanemia which could be driving hyperbilirubinemia. He has been following with heme/onc and taking MMF. Component 01/08/2022 01/09/2022 08/25/2022 Iron 145 237 (H) %SAT 68 (H) 96 (H) TIBC 214 (L) 248 (L) Transferrin, Serum 153 (L) 177 (L) HBsAg Non-Reactive Ferritin 829.1 (H) 346.0 (H) Hep B Surface Ab <3.1 Hep B Core Ab Total Nonreactive Hepatitis C Ab Nonreactive Hepatitis C RNA Quant Not Detected Hep A Ab Total Reactive (A) Hep A Ab IgM Nonreactive Ammonia 74 (H) GEOVANNA SCRN Negative Smooth Muscle Ab Screen Negative IgG, Quantitative 1,995 (H) # EtOH steatosis with previous alcoholic hepatitis # Unclear if cirrhotic # Worsening hyperbilirubinemia - No ongoing alcohol use since 01/2022, encouraged to continue same - Discussed need to see addiction medicine/recovery resources to help stay off alcohol but patient reports he is motivated to do this himself. Referral deferred for now - MELD labs ordered to be done today - Ordered transjugular liver biopsy with measurement of portal pressures to assess if truly cirrhotic - Patient has no personal h/o cancer, no DUIs, good social support at this time # LE pitting edema - Will continue Lasix 20 mg PO and Aldactone 50 mg PO # Esophageal varices screening: - EGD scheduled for 09/2022 but he missed appointment, will reschedule - Platelets 100 # Hepatocellular carcinoma surveillance program: - Last RUQ US 08/2022, will repeat q6 monthly # Hepatic encephalopathy: - No hepatic encephalopathy noted - Started on lactulose for constipation with good response - Advised to titrate same to ensure 2-3 soft BM.day # Colon cancer screening: - Due at age 44 # Age-appropriate vaccinations: - Hep B series 2/3, next to be given at f/u visit Follow up with me in 3 months. The patient indicates understanding of these issues and agrees with the plan. Discussed with Attending Dr. Haley Gary MD. Marcello Ibanez MD Gastroenterology Fellow Division of Gastroenterology & Hepatology [facility] 10/27/22, 10:43 AM Attending addendum: Suspect ETOH related liver steatosis +/- underlying cirrhosis. He definitely has evidence of alcoholic hepatitis in the past; however, it is unclear from blood work alone whether he has developed underlying cirrhosis or not, especially in the setting of his hematological issues. His jaundice (mostly indirect hyperbili) appears to result from autoimmune hemolytic anemia, is on MMF from hematology. Given his sobriety date is 01/2022, we recommended transjugular liver biopsy to ascertain whether hetruly has cirrhosis underlying and measure pressures. His only sign of decompensation is jaundice, which is not currently from liver source. We had a detailed discussion regarding the risks verses benefits from a liver biopsy and the potentially useful information that could be gained. I discussed the complications from a biopsy which include pain (30%), bleeding (0.5%), damage to other organs (less than 1 in 1000), and major complications including need for surgery (less than 1 in 1000). If cirrhotic, would recommend EGD for variceal screening and HCC screening every 6 months. I saw and evaluated the patient. I personally obtained the critical portions of the history and physical exam. The case was discussed in detail with the fellow; including, but not limited to the chief complaint, HPI, past history, physical findings, labs and radiological findings. I agree with the fellow's medical decision making as documented in the fellow's note. The patient was counseled on the possible differential diagnoses and testing needed to arrive at a diagnosis or a treatment plan. Haley Gary MD Division of Gastroenterology & Hepatology [facility] * Eze Schilling - 10/27/2022 9:49 AM EST Patient was identified by name and date of . Eze ShakirPatient at risk for falls:No Falls Risk protocol implemented: No documented in this [id number] History of Present illness Narrative* Haley Gary MD - 10/27/2022 10:42 AM EST Images from the original note were not included. Department of Gastroenterology and Hepatology Hepatology Clinic Follow Up Visit GI Attending Physician: Dr. Haley Gary MD PCP: Theo Burks MD Last GI Visit: 08/25/22 Background History Will Anderson is a 36 year old male with history notable for EtOH cirrhosis (decompensated by ascites), autoimmune hemolytic anemia (on cellcept) who was referred to hepatology clinic for EtOH cirrhosis with worsening hyperbilirubinemia despite quitting EtOH x 6 months (last use 01/2022). Course also c/b LE edema and ascites with recent ED visit for RLE cellulitis for which he completed 7 d of PO Keflex. Interval History He was placed on water pills the last visit because of swelling in his legs and that helped. After the one month he took them he ran out. He then was having some decreased urination for sometime until he restarted medications and he is feeling better. He stopped drinking 12 pack daily up until Spring last year. No rehabilitation or AA, just stopped. Denies nausea, vomiting, hematemesis, melena, black stools or blood in stools, abdominal swelling or leg swelling, change in sleep/wake cycle, or episodes of confusion. Past medical, surgical, family and social histories reviewed and updated as appropriate. Review Of Systems Positives as noted in HPI. All other systems were reviewed and negative. Current Medications Allergies Allergen Reactions Amoxacillin [Amoxicillin] Current Outpatient Medications Medication Sig Dispense Refill furosemide (Lasix) 20 MG tablet Take 1 Tablet by mouth daily. 30 Tablet 0 spironolactone (Aldactone) 50 MG tablet Take 1 Tablet by mouth daily. 30 Tablet 0 ondansetron (ZOFRAN-ODT) 4 MG disintegrating tablet Take 1 Tablet by mouth every 12 hours as neededfor Nausea. Place 1 tablet under tongue as needed for nausea. 30 Tablet 2 mupirocin (BACTROBAN) 2 % ointment Apply topically 3 times daily. Apply thin layer to affected area. 30 g 0 lactulose 20 g/30 mL SOLN oral solution Take 30 mL by mouth 4 times daily as needed. Titrate 2-3 bowel movements/day 946 mL 3 vitamin B-1 (THIAMINE) 100 MG tablet Take 1 Tablet by mouth daily. 90 Tablet 3 Multiple Vitamin (Multi-Vitamins) tablet Take 1 Tablet by mouth daily. 90 Tablet 3 folic acid 1 MG tablet Take 1 Tablet by mouth daily. 90 Tablet 3 mycophenolate (CELLCEPT) 500 MG tablet Take 1 Tablet by mouth 2 times daily. 120 Tablet 3 esomeprazole (NEXIUM) 40 MG capsule Take 1 Capsule by mouth daily (30 minutes before breakfast). 28Capsule 1 No current facility-administered medications for this visit. Physical Exam BP 128/55 Pulse 84 Temp 97.5 F (36.4 C) (Temporal) Wt 169 lb 12.8 oz (77 kg) SpO2 100% BMI 26.59 kg/m General: well nourished, well groomed, pleasant, NAD HEENT: normocephalic, atraumatic, MMM, no scleral icterus Pulm: no increased WOB on room air, CTAB Card: RRR, no murmurs Abdomen: soft, nontender, nondistended, normal bowel sounds Extremities: no RENATO, no gross deformity Skin: WWP, no jaundice Neuro: A&Ox3, no focal deficits, moving all extremities, normal ambulation, no asterixis, no tremor or other abnormal movements Psych: appropriate mood and affect, linear thinking Labs CBC (last 3 years, up to 5 values) (Last 5 results in the past 3 years) WBC RBC Hgb Hct MCV RDW Plt 08/25/22 1241 5.7 3.11 11.6 33.5 108 15.8 131 08/14/22 1203 9.2 3.03 11.6 31.8 105 14.8 100 05/06/22 1039 4.2 3.21 11.5 32.5 101 16.8 90 03/13/22 1159 4.0 2.81 9.9 28.4 101 16.2 114 02/11/22 1115 4.9 2.69 10.0 29.1 108 17.1 81 Basic Metabolic Panel (Last 5 results in the past 3 years) Na K Cl CO2 Gap Glu BUN Cr Ca 08/25/22 1241 138 3.3 101 26 14 55 5 0.55 8.4 08/14/22 1203 132 3.0 97 24 14 89 5 0.55 7.9 05/06/22 1039 137 3.6 105 25 11 79 3 0.58 Comment: Grossly icteric; may falsely decrease creatinine 8.9 03/13/22 1159 135 3.6 103 25 11 119 3 0.51 Comment: Grossly icteric; may falsely decrease creatinine 8.2 02/11/22 1115 134 3.3 103 24 10 105 7 0.49 Comment: Grossly icteric; may falsely decrease creatinine 8.2 LFT's (last 3 years, up to 5 values) (Last 5 results in the past 3 years) T Prot Albumin D Bili T Bili Alk Phos ALT AST 08/25/22 1241 7.2 3.0 2.20 7.7 389 56 103 08/14/22 1203 6.4 2.9 2.83 10.6 Comment: Elevated bilirubin may falsely lower creatinine 245 47 96 05/06/22 1039 6.7 3.0 1.50 8.3 373 47 87 03/13/22 1159 6.2 2.6 1.20 5.6 278 33 68 02/11/22 1115 6.2 2.8 1.70 7.7 226 77 88 INR (no units) Date Value 01/17/2022 1.97 (H) 01/16/2022 2.08 (H) 01/15/2022 1.89 (H) 01/14/2022 1.94 (H) 01/13/2022 2.05 (H) No results found for: AFP Imaging US liver 08/21/2022 IMPRESSION: Limited examination. Cirrhotic liver without a focal suspicious hepatic lesion, within the limitations of the exam. Patent and appropriately direction of flow of the imaged vasculature Trace to small volume upper abdominal ascites. Cholelithiasis GI Procedures none ASSESSMENT AND PLAN Will Anderson is a 36 year old male with history notable for EtOH cirrhosis (decompensated by ascites), autoimmune hemolytic anemia (on cellcept) who was referred to hepatology clinic for EtOH cirrhosis with hyperbilirubinemia despite quitting EtOH x 6 months (last use 01/2022). He does have hemolyticanemia which could be driving hyperbilirubinemia. He has been following with heme/onc and taking MMF. Component 01/08/2022 01/09/2022 08/25/2022 Iron 145 237 (H) %SAT 68 (H) 96 (H) TIBC 214 (L) 248 (L) Transferrin, Serum 153 (L) 177 (L) HBsAg Non-Reactive Ferritin 829.1 (H) 346.0 (H) Hep B Surface Ab <3.1 Hep B Core Ab Total Nonreactive Hepatitis C Ab Nonreactive Hepatitis C RNA Quant Not Detected Hep A Ab Total Reactive (A) Hep A Ab IgM Nonreactive Ammonia 74 (H) GEOVANNA SCRN Negative Smooth Muscle Ab Screen Negative IgG, Quantitative 1,995 (H) # EtOH steatosis with previous alcoholic hepatitis # Unclear if cirrhotic # Worsening hyperbilirubinemia - No ongoing alcohol use since 01/2022, encouraged to continue same - Discussed need to see addiction medicine/recovery resources to help stay off alcohol but patient reports he is motivated to do this himself. Referral deferred for now - MELD labs ordered to be done today - Ordered transjugular liver biopsy with measurement of portal pressures to assess if truly cirrhotic - Patient has no personal h/o cancer, no DUIs, good social support at this time # LE pitting edema - Will continue Lasix 20 mg PO and Aldactone 50 mg PO # Esophageal varices screening: - EGD scheduled for 09/2022 but he missed appointment, will reschedule - Platelets 100 # Hepatocellular carcinoma surveillance program: - Last RUQ US 08/2022, will repeat q6 monthly # Hepatic encephalopathy: - No hepatic encephalopathy noted - Started on lactulose for constipation with good response - Advised to titrate same to ensure 2-3 soft BM.day # Colon cancer screening: - Due at age 44 # Age-appropriate vaccinations: - Hep B series 2/3, next to be given at f/u visit Follow up with me in 3 months. The patient indicates understanding of these issues and agrees with the plan. Discussed with Attending Dr. Haley Gary MD. Marcello Ibanez MD Gastroenterology Fellow Division of Gastroenterology & Hepatology [facility] 10/27/22, 10:43 AM Attending addendum: Suspect ETOH related liver steatosis +/- underlying cirrhosis. He definitely has evidence of alcoholic hepatitis in the past; however, it is unclear from blood work alone whether he has developed underlying cirrhosis or not, especially in the setting of his hematological issues. His jaundice (mostly indirect hyperbili) appears to result from autoimmune hemolytic anemia, is on MMF from hematology. Given his sobriety date is 01/2022, we recommended transjugular liver biopsy to ascertain whether lynn has cirrhosis underlying and measure pressures. His only sign of decompensation is jaundice, which is not currently from liver source. We had a detailed discussion regarding the risks verses benefits from a liver biopsy and the potentially useful information that could be gained. I discussed the complications from a biopsy which include pain (30%), bleeding (0.5%), damage to other organs (less than 1 in 1000), and major complications including need for surgery (less than 1 in 1000). If cirrhotic, would recommend EGD for variceal screening and HCC screening every 6 months. I saw and evaluated the patient. I personally obtained the critical portions of the history and physical exam. The case was discussed in detail with the fellow; including, but not limited to the chief complaint, HPI, past history, physical findings, labs and radiological findings. I agree with the fellow's medical decision making as documented in the fellow's note. The patient was counseled on the possible differential diagnoses and testing needed to arrive at a diagnosis or a treatment plan. Haley Gary MD Division of Gastroenterology & Hepatology [facility] * Eze Schilling - 10/27/2022 9:49 AM EST Patient was identified by name and date of . Eze ShakirPatient at risk for falls:No Falls Risk protocol implemented: No documented in this [id number] Telephone encounter Note* Telephone Encounter - Tanika Arias RN - 09/20/2022 3:00 PM EST Situation: Pt calling to reschedule colonoscopy Background: Colonoscopy scheduled for 09/22/22, pt needs to reschedule d/t lack of transportation Assessment: N/A Recommendation: Advised patient that this nurse cannot reschedule this procedure so he should call back Thursday. Will also send a message to GI to let them know patient is cancelling and will need rescheduled. Tanika Arias RN [facility] Work Phone: [phone] Miscellaneous Notes* Telephone Encounter - Tanika Arias RN - 09/20/2022 3:00 PM EST Situation: Pt calling to reschedule colonoscopy Background: Colonoscopy scheduled for 09/22/22, pt needs to reschedule d/t lack of transportation Assessment: N/A Recommendation: Advised patient that this nurse cannot reschedule this procedure so he should call back Thursday. Will also send a message to GI to let them know patient is cancelling and will need rescheduled. Tanika Arias, RN documented in this [id number] History of Present illness Narrative* Theo Burks MD - 08/29/2022 9:20 AM EST [facility] Telemedicine Visit CC: Chief Complaint Patient presents with Boil/carbuncle/cellulitis local HPI: Patient is a 36 year old male with a history of alcoholic cirrhosis , autoimmune hemolytic anemia who presents for followup of cellulitis Right Lower Extremity Cellulitis: - At last visit 08/25 extended antibiotic course to 14d given immunosuppression and slow response to treatment - Since last visit also started diuretics from hepatology - Since last visit, swelling has gone down, redness has disappeared - Muscles more painful. R > L. Like sore from a workout - No weakness, numbness, tinging - No fevers, chills, night sweats Patient has signed up for MyChart: Yes Patient past medical, social, family, and surgical history personally reviewed and updated in [employer]. OBJECTIVE: There were no vitals taken for this visit. Gen: Sounds well, no acute distress Resp: breathing comfortably ASSESSMENT AND PLAN: 1. Cellulitis, unspecified cellulitis site 2. Muscle soreness Orders & Meds Signed During This Encounter Creatine Kinase Documentation: Mode: Telephone Patient Patient Work Phone: Patient Cell Preferred phone: [phone] Consent: I confirmed patient understanding of the risks and benefits of telehealth visits and obtained consent to proceed with the telehealth visit. Location of Patient: Home of patient Redness, pain, and swelling improved since Thursday. Worsening muscle aches, which is unexpected. Improving electrolytes on 08/25 (thought low glucose) Given history of redness and swelling will obtainCK, to obtain at earliest convenience. RTC PRN Theo Burks MD Family Medicine documented in this [id number] Instructions* Patient Instructions* Theo Burks MD - 08/25/2022 2:16 PM EST Continue antibiotics for another 7 days Topical antibiotic ointment for left foot Follow up on Thursday Refilled zofran (anti-nausea medication) documented in this [id number] History of Present illness Narrative* Theo Burks MD - 08/25/2022 1:31 PM EST Images from the original note were not included. [facility] Family Medicine Office Visit CC: Chief Complaint Patient presents with Leg/thigh symptoms Swelling / red New patient, to establish relationship HPI: Patient is a 36 year old male with a history of alcoholic cirrhosis , autoimmune hemolytic anemia who presents for establish care, cellulitis. Follows with Hematology for AIHA (Dr. Jennie Black) Follows with Hepatology for EtOH cirrhosis (Dr. Haley Gary) Leg Swelling: - 08/14: RLE leg swelling with Liver Clinic. US DVT neg. Started on Macrobid for UTI by Heme/Onc - 08/15: express care for R lower leg swelling, concern for cellulitis and sent to ED for IV abx - 08/15: ED visit XR Knee No acute right knee fracture or dislocation. Diffuse subcutaneous edema ofthe right distal thigh and proximal leg, with focal swelling over the calcaneus anteriorly. Discharged on keflex - Started approximately 2 week ago after ran out of lactulose. Red, warm, painful. Unable to walk due to pain - Completed anbitioics, with good improvement - Reports night sweats and chills, improved - No known cuts or bruises - Gets atheletses foot frequently Feels 50% better Patient has signed up for MyChart: Yes Patient past medical, social, family, and surgical history personally reviewed and updated in [employer]. OBJECTIVE: BP 132/65 (BP Location: left arm, BP position: sitting, Cuff Size: large adult ) Pulse 69 Temp 98.5 F (36.9 C) (Temporal) Resp 18 Wt 171 lb (77.6 kg) SpO2 99% BMI 26.78 kg/m Gen: Appears well, no acute distress Resp: breathing comfortably, CTAB CV: DP and PT pulses symmetric and intact, appears well perfused Ext: right leg erythematous, no significant differenial warm. Bilateral pitting edema, R > L. Skin: circular rash on inner left ankle that is improved with topical antifungal, overlying crustin ASSESSMENT AND PLAN: 1. Right leg swelling 2. Cellulitis, unspecified cellulitis site 3. Nausea Orders & Meds Signed During This Encounter cephALEXin (KEFLEX) 500 MG capsule mupirocin (BACTROBAN) 2 % ointment ondansetron (ZOFRAN-ODT) 4 MG disintegrating tablet Patient presenting to establish care and for followup of cellulitis. He feels 50% better after completing 7 days of keflex, able to walk and reduced redness and swelling. No more night sweats and chills. VSS in office. Patient is immunosuppressed, believe he will benefit from a prolonged course of antibiotics - extended to 14d. His ankle wound is concerning for tinea pedis with possible overlyingbacterial infection, will start with topical mupirocin. Labs drawn this AM at liver clinic--will review. Gave strict return precautions. RTC Thursday as scheduled for wound check Theo Burks MD Family Medicine documented in this [id number] History of Present illness Narrative* Abbey Alvarez MD - 08/25/2022 10:44 AM EST Images from the original note were not included. Department of Gastroenterology and Hepatology Hepatology New Clinic Visit GI Attending Physician: Dr. Haley Gary MD PCP: No primary care provider on file. 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 Admitted to [facility] ICU for acute alcoholic hepatitis (MDF 43) in 01/2022 after presenting to ED for jaundice and fatigue. Infection was ruled out and prednisolone was recommended but was stopped prematurely. Was also diagnosed with autoimmune hemolytic anemia and has been following with hematology for the same, has been started on cellcept and bactrim prophylaxis. Patient reports no confusion, tremors, melena, hematochezia. He does note jaundice that has persisted since 01/2022. He also notes occassional distension of his abdomen when his LE swelling gets worse. Edema fluctuates based on diet. Course has been c/b LE edema with recent concern for uncomplicated non-purulent cellulitis for whichhe is completing 7 of of Keflex 500 mg QID today. Since his illness in 01/2022 he has been trying toeat healthy, watch sodium intake and has completely quit alcohol. RUQ US with doppler does not showthrombosis or portal or splenic veins, but does show liver nodularity concerning for cirrhosis. He reports no personal h/o cancer, no FH of liver disease or no prior DUIs. 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 He does not smo ke cigarettes. He takes tylenol for pain and knows that he has to limit to 2g/day. He avoids NSAIDs. 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 All other systems were reviewed and negative. 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 (Patient not taking: Reported on 08/25/2022) 20 Tablet 0 lactulose 20 g/30 mL SOLN oral solution Take 30 mL by mouth 4 times daily as needed. Titrate 2-3 bowel movements/day 946 mL 3 ondansetron (ZOFRAN-ODT) 4 MG disintegrating tablet Take 1 Tablet by mouth every 12 hours as neededfor Nausea. Place 1 tablet under tongue as needed for nausea. 30 Tablet 2 vitamin B-1 (THIAMINE) 100 MG tablet Take 1 Tablet by mouth daily. 90 Tablet 3 Multiple Vitamin (Multi-Vitamins) tablet Take 1 Tablet by mouth daily. 90 Tablet 3 folic acid 1 MG tablet Take 1 Tablet by mouth daily. 90 Tablet 3 mycophenolate (CELLCEPT) 500 MG tablet Take 1 Tablet by mouth 2 times daily. 120 Tablet 3 esomeprazole (NEXIUM) 40 MG capsule Take 1 Capsule by mouth daily (30 minutes before breakfast). 28Capsule 1 No current facility-administered medications for this visit. Physical Exam Temperature 98.2 F (36.8 C) (Temporal) Weight 172 lb (78 kg) Body Mass Index 26.94 kg/m Gen: NAD HEENT: scleral icterus present, moist mucous membranes Lungs: No increased WOB, CTAB CVS: RRR Abd: Soft, NT/ND, nl BS Ext: 2 + pitting edema, full ROM, dry skin over RLE, mild erythema noted up to mid ternt on R leg with some warmth Skin: WWP Neuro: No asterixis, AOx3 Labs CBC (last 3 years, up to 5 values) (Last 5 results in the past 3 years) WBC RBC Hgb Hct MCV RDW Plt 08/14/22 1203 9.2 3.03 11.6 31.8 105 14.8 100 05/06/22 1039 4.2 3.21 11.5 32.5 101 16.8 90 03/13/22 1159 4.0 2.81 9.9 28.4 101 16.2 114 02/11/22 1115 4.9 2.69 10.0 29.1 108 17.1 81 01/17/22 0618 9.5 2.09 8.0 23.3 111 23.6 96 Basic Metabolic Panel (Last 5 results in the past 3 years) Na K Cl CO2 Gap Glu BUN Cr Ca 08/14/22 1203 132 3.0 97 24 14 89 5 0.55 7.9 05/06/22 1039 137 3.6 105 25 11 79 3 0.58 Comment: Grossly icteric; may falsely decrease creatinine 8.9 03/13/22 1159 135 3.6 103 25 11 119 3 0.51 Comment: Grossly icteric; may falsely decrease creatinine 8.2 02/11/22 1115 134 3.3 103 24 10 105 7 0.49 Comment: Grossly icteric; may falsely decrease creatinine 8.2 01/17/22 0709 131 3.8 99 23 13 84 8 0.42 Comment: Grossly icteric; may falsely decrease creatinine 8.2 LFT's (last 3 years, up to 5 values) (Last 5 results in the past 3 years) T Prot Albumin D Bili T Bili Alk Phos ALT AST 08/14/22 1203 6.4 2.9 2.83 10.6 Comment: Elevated bilirubin may falsely lower creatinine 245 47 96 05/06/22 1039 6.7 3.0 1.50 8.3 373 47 87 03/13/22 1159 6.2 2.6 1.20 5.6 278 33 68 02/11/22 1115 6.2 2.8 1.70 7.7 226 77 88 01/17/22 0709 6.7 2.8 2.40 12.6 Comment: Elevated bilirubin may falsely lower creatinine 133 75 94 INR (no units) Date Value 01/17/2022 1.97 (H) 01/16/2022 2.08 (H) 01/15/2022 1.89 (H) 01/14/2022 1.94 (H) 01/13/2022 2.05 (H) Component 01/08/2022 HBsAg Non-Reactive Hep B Surface Ab <3.1 Hep B Core Ab Total Nonreactive Hepatitis C Ab Nonreactive Hepatitis C RNA Quant Not Detected Hep A Ab Total Reactive (A) Hep A Ab IgM Nonreactive Imaging TTE 04/2022: Normal LV systolic function. The left ventricular ejection fraction (LVEF) is 70%. Normal RV systolic function. Dilated left atrium. Diastolic LV function assessed by resting Doppler is uncertain. No hemodynamically significant valve disease. Noninvasive hemodynamic assessment is consistent with a normal CVP. The pulmonary artery systolic pressure could not be estimated. See above for further details. RUQ US with doppler 05/2022: Limited examination. Cirrhotic liver without a focal suspicious hepatic lesion, within the limitations of the exam. Patent and appropriately direction of flow of the imaged vasculature Trace to small volume upper abdominal ascites. 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 Course also c/b LE edema and ascites with recent ED visit for RLE cellulitis for which he completed 7 d of PO Keflex. # Decompensated EtOH cirrhosis # Alcoholic hepatitis # Worsening hyperbilirubinemia MELD-Na score: 27 at 01/17/2022 7:09 AM MELD score: 24 at 01/17/2022 7:09 AM Calculated from: Serum Creatinine: 0.42 mg/dL (Using min of 1 mg/dL) at 01/17/2022 7:09 AM Serum Sodium: 131 mmol/L at 01/17/2022 7:09 AM Total Bilirubin: 12.6 mg/dL at 01/17/2022 7:09 AM INR(ratio): 1.97 at 01/17/2022 6:18 AM Age: 36 years - No ongoing alcohol use since 01/2022, encouraged to continue same - Discussed need to see addiction medicine/recovery resources to help stay off alcohol but patient reports he is motivated to do this himself. Referral deferred for now - MELD labs ordered to be done today - Will order ASMA, IgG, Ferritin, Iron and TIBC and HH DNA testing (given elevated ferritin in past) to evaluate for other etiologies of liver disease - Will hold off Fibroscan due to evidence of cirrhosis and portal hypertension on imaging - Liver transplant candidacy to be determined on follow-up pending results of above labs - Patient has no personal h/o cancer, no DUIs, good social support at this time # Ascites, mild # LE pitting edema - Will start Lasix 20 mg PO and Aldactone 50 mg PO - Will repeat BMP in 2 weeks # RLE cellulitis - S/p 1 week of Keflex with inadequate improvement - Advised to make appt in urgent care/internal medicine clinic for further management # Esophageal varices screening: - EGD scheduled for 09/2022 - Platelets 100 # Hepatocellular carcinoma surveillance program: - Last RUQ US 08/2022, will repeat q6 monthly # Hepatic encephalopathy: - No hepatic encephalopathy noted - Started on lactulose for constipation with good response - Advised to titrate same to ensure 2-3 soft BM.day # Colon cancer screening: - Due at age 44 # Age-appropriate vaccinations: - Hep B series 1/3, next to be given at f/u visit Follow up with me in 1 month. The patient indicates understanding of these issues and agrees with the plan. Discussed with Attending Dr. Haley Gary MD. Abbey Alvarez MD Gastroenterology Fellow Division of Gastroenterology & Hepatology [facility] 08/25/22, 10:44 AM * Maura Canela - 08/25/2022 10:40 AM EST Patient was identified by name and date of . Maura Canela Patient at risk for falls:No Falls Risk protocol implemented: No documented in this [id number] History of Present illness Narrative* Abbey Alvarez MD - 08/25/2022 10:44 AM EST Images from the original note were not included. Department of Gastroenterology and Hepatology Hepatology New Clinic Visit GI Attending Physician: Dr. Haley Gary MD PCP: No primary care provider on file. 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 Admitted to [facility] ICU for acute alcoholic hepatitis (MDF 43) in 01/2022 after presenting to ED for jaundice and fatigue. Infection was ruled out and prednisolone was recommended but was stopped prematurely. Was also diagnosed with autoimmune hemolytic anemia and has been following with hematology for the same, has been started on cellcept and bactrim prophylaxis. Patient reports no confusion, tremors, melena, hematochezia. He does note jaundice that has persisted since 01/2022. He also notes occassional distension of his abdomen when his LE swelling gets worse. Edema fluctuates based on diet. Course has been c/b LE edema with recent concern for uncomplicated non-purulent cellulitis for whichhe is completing 7 of of Keflex 500 mg QID today. Since his illness in 01/2022 he has been trying toeat healthy, watch sodium intake and has completely quit alcohol. RUQ US with doppler does not showthrombosis or portal or splenic veins, but does show liver nodularity concerning for cirrhosis. He reports no personal h/o cancer, no FH of liver disease or no prior DUIs. 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 He does not smo ke cigarettes. He takes tylenol for pain and knows that he has to limit to 2g/day. He avoids NSAIDs. 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 All other systems were reviewed and negative. 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 (Patient not taking: Reported on 08/25/2022) 20 Tablet 0 lactulose 20 g/30 mL SOLN oral solution Take 30 mL by mouth 4 times daily as needed. Titrate 2-3 bowel movements/day 946 mL 3 ondansetron (ZOFRAN-ODT) 4 MG disintegrating tablet Take 1 Tablet by mouth every 12 hours as neededfor Nausea. Place 1 tablet under tongue as needed for nausea. 30 Tablet 2 vitamin B-1 (THIAMINE) 100 MG tablet Take 1 Tablet by mouth daily. 90 Tablet 3 Multiple Vitamin (Multi-Vitamins) tablet Take 1 Tablet by mouth daily. 90 Tablet 3 folic acid 1 MG tablet Take 1 Tablet by mouth daily. 90 Tablet 3 mycophenolate (CELLCEPT) 500 MG tablet Take 1 Tablet by mouth 2 times daily. 120 Tablet 3 esomeprazole (NEXIUM) 40 MG capsule Take 1 Capsule by mouth daily (30 minutes before breakfast). 28Capsule 1 No current facility-administered medications for this visit. Physical Exam Temperature 98.2 F (36.8 C) (Temporal) Weight 172 lb (78 kg) Body Mass Index 26.94 kg/m Gen: NAD HEENT: scleral icterus present, moist mucous membranes Lungs: No increased WOB, CTAB CVS: RRR Abd: Soft, NT/ND, nl BS Ext: 2 + pitting edema, full ROM, dry skin over RLE, mild erythema noted up to mid trent on R leg with some warmth Skin: WWP Neuro: No asterixis, AOx3 Labs CBC (last 3 years, up to 5 values) (Last 5 results in the past 3 years) WBC RBC Hgb Hct MCV RDW Plt 08/14/22 1203 9.2 3.03 11.6 31.8 105 14.8 100 05/06/22 1039 4.2 3.21 11.5 32.5 101 16.8 90 03/13/22 1159 4.0 2.81 9.9 28.4 101 16.2 114 02/11/22 1115 4.9 2.69 10.0 29.1 108 17.1 81 01/17/22 0618 9.5 2.09 8.0 23.3 111 23.6 96 Basic Metabolic Panel (Last 5 results in the past 3 years) Na K Cl CO2 Gap Glu BUN Cr Ca 08/14/22 1203 132 3.0 97 24 14 89 5 0.55 7.9 05/06/22 1039 137 3.6 105 25 11 79 3 0.58 Comment: Grossly icteric; may falsely decrease creatinine 8.9 03/13/22 1159 135 3.6 103 25 11 119 3 0.51 Comment: Grossly icteric; may falsely decrease creatinine 8.2 02/11/22 1115 134 3.3 103 24 10 105 7 0.49 Comment: Grossly icteric; may falsely decrease creatinine 8.2 01/17/22 0709 131 3.8 99 23 13 84 8 0.42 Comment: Grossly icteric; may falsely decrease creatinine 8.2 LFT's (last 3 years, up to 5 values) (Last 5 results in the past 3 years) T Prot Albumin D Bili T Bili Alk Phos ALT AST 08/14/22 1203 6.4 2.9 2.83 10.6 Comment: Elevated bilirubin may falsely lower creatinine 245 47 96 05/06/22 1039 6.7 3.0 1.50 8.3 373 47 87 03/13/22 1159 6.2 2.6 1.20 5.6 278 33 68 02/11/22 1115 6.2 2.8 1.70 7.7 226 77 88 01/17/22 0709 6.7 2.8 2.40 12.6 Comment: Elevated bilirubin may falsely lower creatinine 133 75 94 INR (no units) Date Value 01/17/2022 1.97 (H) 01/16/2022 2.08 (H) 01/15/2022 1.89 (H) 01/14/2022 1.94 (H) 01/13/2022 2.05 (H) Component 01/08/2022 HBsAg Non-Reactive Hep B Surface Ab <3.1 Hep B Core Ab Total Nonreactive Hepatitis C Ab Nonreactive Hepatitis C RNA Quant Not Detected Hep A Ab Total Reactive (A) Hep A Ab IgM Nonreactive Imaging TTE 04/2022: Normal LV systolic function. The left ventricular ejection fraction (LVEF) is 70%. Normal RV systolic function. Dilated left atrium. Diastolic LV function assessed by resting Doppler is uncertain. No hemodynamically significant valve disease. Noninvasive hemodynamic assessment is consistent with a normal CVP. The pulmonary artery systolic pressure could not be estimated. See above for further details. RUQ US with doppler 05/2022: Limited examination. Cirrhotic liver without a focal suspicious hepatic lesion, within the limitations of the exam. Patent and appropriately direction of flow of the imaged vasculature Trace to small volume upper abdominal ascites. 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 Course also c/b LE edema and ascites with recent ED visit for RLE cellulitis for which he completed 7 d of PO Keflex. # Decompensated EtOH cirrhosis # Alcoholic hepatitis # Worsening hyperbilirubinemia MELD-Na score: 27 at 01/17/2022 7:09 AM MELD score: 24 at 01/17/2022 7:09 AM Calculated from: Serum Creatinine: 0.42 mg/dL (Using min of 1 mg/dL) at 01/17/2022 7:09 AM Serum Sodium: 131 mmol/L at 01/17/2022 7:09 AM Total Bilirubin: 12.6 mg/dL at 01/17/2022 7:09 AM INR(ratio): 1.97 at 01/17/2022 6:18 AM Age: 36 years - No ongoing alcohol use since 01/2022, encouraged to continue same - Discussed need to see addiction medicine/recovery resources to help stay off alcohol but patient reports he is motivated to do this himself. Referral deferred for now - MELD labs ordered to be done today - Will order ASMA, IgG, Ferritin, Iron and TIBC and HH DNA testing (given elevated ferritin in past) to evaluate for other etiologies of liver disease - Will hold off Fibroscan due to evidence of cirrhosis and portal hypertension on imaging - Liver transplant candidacy to be determined on follow-up pending results of above labs - Patient has no personal h/o cancer, no DUIs, good social support at this time # Ascites, mild # LE pitting edema - Will start Lasix 20 mg PO and Aldactone 50 mg PO - Will repeat BMP in 2 weeks # RLE cellulitis - S/p 1 week of Keflex with inadequate improvement - Advised to make appt in urgent care/internal medicine clinic for further management # Esophageal varices screening: - EGD scheduled for 09/2022 - Platelets 100 # Hepatocellular carcinoma surveillance program: - Last RUQ US 08/2022, will repeat q6 monthly # Hepatic encephalopathy: - No hepatic encephalopathy noted - Started on lactulose for constipation with good response - Advised to titrate same to ensure 2-3 soft BM.day # Colon cancer screening: - Due at age 44 # Age-appropriate vaccinations: - Hep B series 09/09, next to be given at f/u visit Follow up with me in 1 month. The patient indicates understanding of these issues and agrees with the plan. Discussed with Attending Dr. Haley Gary MD. Abbey Alvarez MD Gastroenterology Fellow Division of Gastroenterology & Hepatology [facility] 08/25/22, 10:44 AM * Maura Canela - 08/25/2022 10:40 AM EST Patient was identified by name and date of . Maura Canela Patient at risk for falls:No Falls Risk protocol implemented: No documented in this [id number] History of Present illness Narrative* Abbey Alvarez MD - 08/25/2022 10:44 AM EST Images from the original note were not included. Department of Gastroenterology and Hepatology Hepatology New Clinic Visit GI Attending Physician: Dr. Haley Gary MD PCP: No primary care provider on file. 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 Admitted to [facility] ICU for acute alcoholic hepatitis (MDF 42) in 01/2022 after presenting to ED for jaundice and fatigue. Infection was ruled out and prednisolone was recommended but was stopped prematurely. Was also diagnosed with autoimmune hemolytic anemia and has been following with hematology for the same, has been started on cellcept and bactrim prophylaxis. Patient reports no confusion, tremors, melena, hematochezia. He does note jaundice that has persisted since 01/2022. He also notes occassional distension of his abdomen when his LE swelling gets worse. Edema fluctuates based on diet. Course has been c/b LE edema with recent concern for uncomplicated non-purulent cellulitis for whichhe is completing 7 of of Keflex 500 mg QID today. Since his illness in 01/2022 he has been trying toeat healthy, watch sodium intake and has completely quit alcohol. RUQ US with doppler does not showthrombosis or portal or splenic veins, but does show liver nodularity concerning for cirrhosis. He reports no personal h/o cancer, no FH of liver disease or no prior DUIs. 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 He does not smo ke cigarettes. He takes tylenol for pain and knows that he has to limit to 2g/day. He avoids NSAIDs. 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 All other systems were reviewed and negative. 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 (Patient not taking: Reported on 08/25/2022) 20 Tablet 0 lactulose 20 g/30 mL SOLN oral solution Take 30 mL by mouth 4 times daily as needed. Titrate 2-3 bowel movements/day 946 mL 3 ondansetron (ZOFRAN-ODT) 4 MG disintegrating tablet Take 1 Tablet by mouth every 12 hours as neededfor Nausea. Place 1 tablet under tongue as needed for nausea. 30 Tablet 2 vitamin B-1 (THIAMINE) 100 MG tablet Take 1 Tablet by mouth daily. 90 Tablet 3 Multiple Vitamin (Multi-Vitamins) tablet Take 1 Tablet by mouth daily. 90 Tablet 3 folic acid 1 MG tablet Take 1 Tablet by mouth daily. 90 Tablet 3 mycophenolate (CELLCEPT) 500 MG tablet Take 1 Tablet by mouth 2 times daily. 120 Tablet 3 esomeprazole (NEXIUM) 40 MG capsule Take 1 Capsule by mouth daily (30 minutes before breakfast). 28Capsule 1 No current facility-administered medications for this visit. Physical Exam Temperature 98.2 F (36.8 C) (Temporal) Weight 172 lb (78 kg) Body Mass Index 26.94 kg/m Gen: NAD HEENT: scleral icterus present, moist mucous membranes Lungs: No increased WOB, CTAB CVS: RRR Abd: Soft, NT/ND, nl BS Ext: 2 + pitting edema, full ROM, dry skin over RLE, mild erythema noted up to mid trent on R leg with some warmth Skin: WWP Neuro: No asterixis, AOx3 Labs CBC (last 3 years, up to 5 values) (Last 5 results in the past 3 years) WBC RBC Hgb Hct MCV RDW Plt 08/14/22 1203 9.2 3.03 11.6 31.8 105 14.8 100 05/06/22 1039 4.2 3.21 11.5 32.5 101 16.8 90 03/13/22 1159 4.0 2.81 9.9 28.4 101 16.2 114 02/11/22 1115 4.9 2.69 10.0 29.1 108 17.1 81 01/17/22 0618 9.5 2.09 8.0 23.3 111 23.6 96 Basic Metabolic Panel (Last 5 results in the past 3 years) Na K Cl CO2 Gap Glu BUN Cr Ca 08/14/22 1203 132 3.0 97 24 14 89 5 0.55 7.9 05/06/22 1039 137 3.6 105 25 11 79 3 0.58 Comment: Grossly icteric; may falsely decrease creatinine 8.9 03/13/22 1159 135 3.6 103 25 11 119 3 0.51 Comment: Grossly icteric; may falsely decrease creatinine 8.2 02/11/22 1115 134 3.3 103 24 10 105 7 0.49 Comment: Grossly icteric; may falsely decrease creatinine 8.2 01/17/22 0709 131 3.8 99 23 13 84 8 0.42 Comment: Grossly icteric; may falsely decrease creatinine 8.2 LFT's (last 3 years, up to 5 values) (Last 5 results in the past 3 years) T Prot Albumin D Bili T Bili Alk Phos ALT AST 08/14/22 1203 6.4 2.9 2.83 10.6 Comment: Elevated bilirubin may falsely lower creatinine 245 47 96 05/06/22 1039 6.7 3.0 1.50 8.3 373 47 87 03/13/22 1159 6.2 2.6 1.20 5.6 278 33 68 02/11/22 1115 6.2 2.8 1.70 7.7 226 77 88 01/17/22 0709 6.7 2.8 2.40 12.6 Comment: Elevated bilirubin may falsely lower creatinine 133 75 94 INR (no units) Date Value 01/17/2022 1.97 (H) 01/16/2022 2.08 (H) 01/15/2022 1.89 (H) 01/14/2022 1.94 (H) 01/13/2022 2.05 (H) Component 01/08/2022 HBsAg Non-Reactive Hep B Surface Ab <3.1 Hep B Core Ab Total Nonreactive Hepatitis C Ab Nonreactive Hepatitis C RNA Quant Not Detected Hep A Ab Total Reactive (A) Hep A Ab IgM Nonreactive Imaging TTE 04/2022: Normal LV systolic function. The left ventricular ejection fraction (LVEF) is 70%. Normal RV systolic function. Dilated left atrium. Diastolic LV function assessed by resting Doppler is uncertain. No hemodynamically significant valve disease. Noninvasive hemodynamic assessment is consistent with a normal CVP. The pulmonary artery systolic pressure could not be estimated. See above for further details. RUQ US with doppler 05/2022: Limited examination. Cirrhotic liver without a focal suspicious hepatic lesion, within the limitations of the exam. Patent and appropriately direction of flow of the imaged vasculature Trace to small volume upper abdominal ascites. 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 Course also c/b LE edema and ascites with recent ED visit for RLE cellulitis for which he completed 7 d of PO Keflex. # Decompensated EtOH cirrhosis # Alcoholic hepatitis # Worsening hyperbilirubinemia MELD-Na score: 27 at 01/17/2022 7:09 AM MELD score: 24 at 01/17/2022 7:09 AM Calculated from: Serum Creatinine: 0.42 mg/dL (Using min of 1 mg/dL) at 01/17/2022 7:09 AM Serum Sodium: 131 mmol/L at 01/17/2022 7:09 AM Total Bilirubin: 12.6 mg/dL at 01/17/2022 7:09 AM INR(ratio): 1.97 at 01/17/2022 6:18 AM Age: 36 years - No ongoing alcohol use since 01/2022, encouraged to continue same - Discussed need to see addiction medicine/recovery resources to help stay off alcohol but patient reports he is motivated to do this himself. Referral deferred for now - MELD labs ordered to be done today - Will order ASMA, IgG, Ferritin, Iron and TIBC and HH DNA testing (given elevated ferritin in past) to evaluate for other etiologies of liver disease - Will hold off Fibroscan due to evidence of cirrhosis and portal hypertension on imaging - Liver transplant candidacy to be determined on follow-up pending results of above labs - Patient has no personal h/o cancer, no DUIs, good social support at this time # Ascites, mild # LE pitting edema - Will start Lasix 20 mg PO and Aldactone 50 mg PO - Will repeat BMP in 2 weeks # RLE cellulitis - S/p 1 week of Keflex with inadequate improvement - Advised to make appt in urgent care/internal medicine clinic for further management # Esophageal varices screening: - EGD scheduled for 09/2022 - Platelets 100 # Hepatocellular carcinoma surveillance program: - Last RUQ US 08/2022, will repeat q6 monthly # Hepatic encephalopathy: - No hepatic encephalopathy noted - Started on lactulose for constipation with good response - Advised to titrate same to ensure 2-3 soft BM.day # Colon cancer screening: - Due at age 44 # Age-appropriate vaccinations: - Hep B series /3, next to be given at f/u visit Follow up with me in 1 month. The patient indicates understanding of these issues and agrees with the plan. Discussed with Attending Dr. Haley Gary MD. Abbey Alvarez MD Gastroenterology Fellow Division of Gastroenterology & Hepatology [facility] 08/25/22, 10:44 AM Associated attestation - Haley Gary MD - 08/26/2022 9:27 AM EST Attending addendum: # Decompensated cirrhosis 2/2 ETOH - MELD was initially downtrending since sobriety, but now has increased (bilirubin) - he does have hemolytic anemia which explains large component of indirect bilirubinemia - will repeat MELD now - he defers addiction medicine referral, we explained that if he is to become transplant candidate,he will need structured ETOH program, he is aware but continues to defer - will see him in clinic in 1 month I saw and evaluated the patient. I personally obtained the critical portions of the history and physical exam. The case was discussed in detail with the fellow; including, but not limited to the chief complaint, HPI, past history, physical findings, labs and radiological findings. I agree with the fellow's medical decision making as documented in the fellow's note. The patient was counseled on the possible differential diagnoses and testing needed to arrive at a diagnosis or a treatment plan. Haley Gary MD Division of Gastroenterology & Hepatology [facility] * Maura Canela - 08/25/2022 10:40 AM EST Patient was identified by name and date of . Maura Canela Patient at risk for falls:No Falls Risk protocol implemented: No documented in this [id number] Note* Addendum Note - Tanvir Black MD - 08/21/2022 8:52 PM ESTAddended by: TANVIR BLACK on: 08/21/2022 08:52 PM Modules accepted: Orders [id number] Miscellaneous Notes* Addendum Note - Tanvir Black MD - 08/21/2022 8:52 PM ESTAddended by: TANVIR BLACK on: 08/21/2022 08:52 PM Modules accepted: Orders documented in this [id number] History of Present illness Narrative* Tanvri Black MD - 08/16/2022 11:07 AM EST Images from the original note were not included. Reviewed urine C&S. Urine growing klebsiella pneumoniae, with intermediate sensitivity to Macrobid. Culture Positive Culture Report Abnormal >100,000 CFU/ml Klebsiella pneumoniae [place] [facility] [place]bs[place] pneumoniae BHAVIN Amoxicillin + Clavulanate 4 BHAVIN Sensitive Ampicillin + Sulbactam 8 BHAVIN Sensitive Cefazolin <=4 BHAVIN Sensitive Cefepime <=1 BHAVIN Sensitive Ceftazidime <=1 BHAVIN Sensitive Ceftriaxone <=1 BHAVIN Sensitive Ciprofloxacin <=0.25 BHAVIN Sensitive Ertapenem <=0.5 BHAVIN Sensitive Gentamicin <=1 BHAVIN Sensitive Nitrofurantoin 64 BHAVIN Intermediate Piperacillin + Tazobactam <=4 BHAVIN Sensitive Trimethoprim + Sulfamethoxazole >=320 BHAVIN Resistant Will change current antibiotic to Augmentin X10 days Sent to preferred pharmacy. Pt called and made aware Phone numbers Preferred Tanvir Black MD Pgr [phone] Hematology/Oncology 08/16/2022 . documented in this [id number] Hospital Discharge instructions* Discharge Instructions* Dante Marcelino MD - 08/15/2022 3:08 PM EST EMERGENCY DEPARTMENT FOLLOW-UP: Please see your Primary Care Physician at next available appointment for follow up. Please call today or tomorrow to make an appointment. Residents of [facility] may apply for discounts available only to residents of this [facility] by contacting the Eligibility Call Center at [phone]. If you do not have a primary physician please call [phone] for guidance on finding a [facility] provider. PLEASE NOTE: If you are followed by a managed care company or if your insurance requires, call yourphysician for authorization to be seen in a specialty clinic. Instructions: Do not share your medication with anyone. Return to the Emergency Department if you get worse or have any new problems or symptoms that worryyou, or you are not improving as quickly as you expect. Take all antibiotics until gone. Extremity Injury Instructions: Return to the ED if you develop increased pain in your injured limb,loss of sensation, or change in color of the limb. Procedures done during this visit: None documented in this [id number] History of Present illness Narrative* Nenita Franco MD - 08/15/2022 2:29 PM EST Chief Complaint Patient presents with Leg/thigh symptoms Right leg has a lot on fluids. HPI. R lower leg swollen /red x 1 week \alcoholic ascites Had US yesterday negative Getting worse No efvers Current Outpatient Medications Medication Sig Dispense Refill nitrofurantoin monohydrate macrocrystal (MACROBID) 100 MG capsule Take 1 Capsule by mouth 2 times daily for 10 days. 20 Capsule 0 lactulose 20 g/30 mL SOLN oral solution Take 30 mL by mouth 4 times daily as needed. Titrate 2-3 bowel movements/day 946 mL 3 clindamycin (CLEOCIN) 150 MG capsule Take by mouth. (Patient not taking: Reported on 08/14/2022) ondansetron (ZOFRAN-ODT) 4 MG disintegrating tablet Take 1 Tablet by mouth every 12 hours [address] neededfor Nausea. Place 1 tablet under tongue as needed for nausea. 30 Tablet 2 vitamin B-1 (THIAMINE) 100 MG tablet Take 1 Tablet by mouth daily. 90 Tablet 3 Multiple Vitamin (Multi-Vitamins) tablet Take 1 Tablet by mouth daily. 90 Tablet 3 folic acid 1 MG tablet Take 1 Tablet by mouth daily. 90 Tablet 3 sulfamethoxazole-trimethoprim 800-160 MG (BACTRIM DS) 800-160 MG per tablet Take 1 tablet by mouth every Thursday, , and Thursday. 30 Tablet 5 mycophenolate (CELLCEPT) 500 MG tablet Take 1 Tablet by mouth 2 times daily. 120 Tablet 3 esomeprazole (NEXIUM) 40 MG capsule Take 1 Capsule by mouth daily (30 minutes before breakfast). (Patient not taking: Reported on 08/14/2022) 28 Capsule 1 No current facility-administered medications for this visit. 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 Social History Socioeconomic History Marital status: Single Tobacco Use Smoking status: Former Types: Cigarettes Smokeless tobacco: Current Types: Chew No family history on file. ROS: All systems negative except per HPI O: Blood pressure 136/56, pulse 85, temperature 98.6 F (37 C), temperature source Temporal, resp. rate18, weight 170 lb 9.6 oz (77.4 kg), SpO2 100 %. PHYSICAL EXAMINATION: General appearance: healthy Lungs: Good breath sounds; no wheezes, rales or rhonchi. Heart: Regular rate and rhythm. Normal S1 and S2. No murmurs, clicks or gallops. Abdomen: Abdomen soft, non-tender. BS normal. No masses, No organomegaly Extremities: R Lower leg swelling with erythema and tenderness, good pulses Neuro: Intact and symmetric. Assessment and Plan: (L03.90) Cellulitis, unspecified cellulitis site (primary encounter diagnosis) Comment: Plan: Sent to ER for further evaluation Iv antibiotics see visit diagnoses, orders and follow up recommendations reviewed and updated medication list discussed probable diagnosis, test results if available in office today and management options withpatient: agreed to a medical plan education provided regarding visit today, see after visit summary health maintenance with primary care provider. Follow up prn. If symptoms worsen or fail to improve please contact PCP as soon as possible or go directly to the emergency department. NENITA FRANCO MD * Katie Paniagua - 08/15/2022 10:16 AM EST Patient was identified by name and date of . Katie Paniagua documented in this [id number] History of Present illness Narrative* Tanvir Black MD - 08/14/2022 3:53 PM EST Images from the original note were not included. Hematology & Oncology Clinic Note Reason for Consult: Hemolytic anemia Alcoholic cirrhosis Thrombocytopenia Long-term steroid use Referring Provider: Afua Umanzor MD Chief Complaint Patient presents with AIHA right leg swelling right leg erythema History of Present Illness Will Anderson is a 36 year old male with hx of excessive alcohol use with alcoholic liver cirrhosis, presented to ER in decompensated liver failure. 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 He was discharged home on 1 milligram/kilogram of prednisone which pt stopped prematu rely. He was placed on MMF 1000mg BID. Pt non complaint due to side effect. Here for MDVS, complaint of leg swelling And labs. Initial consult visit HPI Per patient, had a hard time with steroid at home. Was unable to sleep and kept him agitated almostall times. He decided to stop prednisone after 7 days And has been doing much better since then. Has not had any alcohol since discharge. To color a his skin and eyes is slowly coming back to normal. Interval visit 08/14/2022 he currently feels well overall. Complains of right ext swelling from groin down to foot. It is redand hot X 3 days. Denies trauma. Pain worse when standing, but when he lays down, pain is resolved.Still has some nausea and vomiting, about once a day after taking her cellcept.he is complaint withcurrent therapy. Has been sleeping well while off steroid.continues to have swelling of legs which is worse at end of day. Denies CP, SOB, palpitations, dizziness or light- headedness. Denies having any changes in weight, appetite, or energy. No night sweats, fevers, chills, or new lumps. Eating anddrinking well. Review of Systems Constitutional: Negative for chills, fever, malaise/fatigue and weight loss. HENT: Negative for congestion, hearing loss, sinus pain and tinnitus. Eyes: Negative for blurred vision and double vision. Jaundice Respiratory: Negative for cough, sputum production, shortness of breath and wheezing. Cardiovascular: Negative for chest pain, palpitations, orthopnea and leg swelling. Gastrointestinal: Negative for abdominal pain, blood in stool, constipation, diarrhea, heartburn, nausea and vomiting. Genitourinary: Negative for dysuria, frequency and urgency. Musculoskeletal: Negative for back pain, falls, joint pain and myalgias. Skin: Negative for rash. Neurological: Negative for dizziness, tingling, tremors, sensory change, focal weakness, seizures, weakness and headaches. Endo/Heme/Allergies: Does not bruise/bleed easily. Psychiatric/Behavioral: Negative for depression, substance abuse and suicidal ideas. The patient isnot nervous/anxious and does not have insomnia. Past Medical, Social, & Family History PAST MEDICAL HISTORY: Past Medical History: Diagnosis Date Closed fracture of angle of jaw (HCC) HLA B27 (HLA B27 positive) 2003 Followed with Rheum at [facility] Open fracture of other and unspecified part of body of mandible FAMILY HISTORY: No family history on file. SOCIAL HISTORY: Social History Socioeconomic History Marital status: Single Tobacco Use Smoking status: Former Types: Cigarettes Smokeless tobacco: Current Types: Chew CURRENT MEDICATIONS: Current Outpatient Medications Medication Sig Dispense Refill lactulose 20 g/30 mL SOLN oral solution Take 30 mL by mouth 4 times daily as needed. Titrate 2-3 bowel movements/day 946 mL 3 clindamycin (CLEOCIN) 150 MG capsule Take by mouth. (Patient not taking: Reported on 08/14/2022) ondansetron (ZOFRAN-ODT) 4 MG disintegrating tablet Take 1 Tablet by mouth every 12 hours as neededfor Nausea. Place 1 tablet under tongue as needed for nausea. 30 Tablet 2 vitamin B-1 (THIAMINE) 100 MG tablet Take 1 Tablet by mouth daily. 90 Tablet 3 Multiple Vitamin (Multi-Vitamins) tablet Take 1 Tablet by mouth daily. 90 Tablet 3 folic acid 1 MG tablet Take 1 Tablet by mouth daily. 90 Tablet 3 sulfamethoxazole-trimethoprim 800-160 MG (BACTRIM DS) 800-160 MG per tablet Take 1 tablet by mouth every Thursday, , and Thursday. 30 Tablet 5 mycophenolate (CELLCEPT) 500 MG tablet Take 1 Tablet by mouth 2 times daily. 120 Tablet 3 esomeprazole (NEXIUM) 40 MG capsule Take 1 Capsule by mouth daily (30 minutes before breakfast). (Patient not taking: Reported on 08/14/2022) 28 Capsule 1 No current facility-administered medications for this encounter. ALLERGIES: Amoxacillin [amoxicillin] Objective Vitals: 08/14/22 1151 BP: 141/60 Pulse: 90 Resp: 14 Temp: 99.2 F (37.3 C) SpO2: 100% Physical Exam Constitutional: General: He is not in acute distress. HENT: Head: Normocephalic and atraumatic. Mouth/Throat: Pharynx: No oropharyngeal exudate. Eyes: General: No scleral icterus. Pupils: Pupils are equal, round, and reactive to light. Comments: Jaundiced Neck: Thyroid: No thyromegaly. Cardiovascular: Rate and Rhythm: Normal rate and regular rhythm. Heart sounds: Normal heart sounds. No murmur heard. No friction rub. Pulmonary: Effort: Pulmonary effort is normal. No respiratory distress. Breath sounds: Normal breath sounds. No wheezing. Chest: Chest wall: No tenderness. Abdominal: General: Bowel sounds are normal. There is no distension. Palpations: Abdomen is soft. There is no mass. Musculoskeletal: General: No tenderness. Normal range of motion. Cervical back: Normal range of motion and neck supple. Lymphadenopathy: Cervical: No cervical adenopathy. Skin: General: Skin is warm and dry. Coloration: Skin is not jaundiced. Findings: No erythema or rash. Comments: Darkening of skin color Neurological: Mental Status: He is alert and oriented to person, place, and time. Cranial Nerves: No cranial nerve deficit. Gait: Gait is intact. Psychiatric: Mood and Affect: Mood and affect normal. Cognition and Memory: Memory normal. Judgment: Judgment normal. LAST LAB RESULTS: CBC (Last 5 results in the past 365 days) WBC RBC Hgb Hct MCV RDW Plt 08/14/22 1203 9.2 [P] 3.03 [P] 11.6 [P] 31.8 [P] 105 [P] 14.8 [P] 100 [P] 05/06/22 1039 4.2 3.21 11.5 32.5 101 16.8 90 03/13/22 1159 4.0 2.81 9.9 28.4 101 16.2 114 02/11/22 1115 4.9 2.69 10.0 29.1 108 17.1 81 01/17/22 0618 9.5 2.09 8.0 23.3 111 23.6 96 [P] - Preliminary Result Basic Metabolic Panel (Last 5 results in the past 3 years) Na K Cl CO2 Gap Glu BUN Cr Ca 05/06/22 1039 137 3.6 105 25 11 79 3 0.58 Comment: Grossly icteric; may falsely decrease creatinine 8.9 03/13/22 1159 135 3.6 103 25 11 119 3 0.51 Comment: Grossly icteric; may falsely decrease creatinine 8.2 02/11/22 1115 134 3.3 103 24 10 105 7 0.49 Comment: Grossly icteric; may falsely decrease creatinine 8.2 01/17/22 0709 131 3.8 99 23 13 84 8 0.42 Comment: Grossly icteric; may falsely decrease creatinine 8.2 01/16/22 0503 132 3.7 98 24 14 102 9 0.42 Comment: Grossly icteric; may falsely decrease creatinine 8.3 LFT's (last 3 years, up to 5 values) (Last 5 results in the past 3 years) T Prot Albumin D Bili T Bili Alk Phos ALT AST 05/06/22 1039 6.7 3.0 1.50 8.3 373 47 87 03/13/22 1159 6.2 2.6 1.20 5.6 278 33 68 02/11/22 1115 6.2 2.8 1.70 7.7 226 77 88 01/17/22 0709 6.7 2.8 2.40 12.6 Comment: Elevated bilirubin may falsely lower creatinine 133 75 94 01/16/22 0503 6.3 2.7 2.30 12.7 Comment: Elevated bilirubin may falsely lower creatinine 124 69 93 IMAGING: Reviewed and updated in Oncology History, as above. Assessment & Plan Will Anderson is a 36 year old male with chronic alcohol use and warm autoimmune hemolytic anemia here for MDVS, labs and complaint of leg swelling. Warm antibody hemolytic anemia -intolerant to steroid, labs reviewed, there is presence of hemolysis but improved from labs at time of admission. -patient on MMF with bactrim prophylaxis which was Dose decreased to 500mg BID. There is still evidence of hemolysis per labs review but great improvement in counts. RTC 3 month for MDVS and labs. Standing labs ordered. Right leg swelling Rt leg 2X> left leg Concerns for DVT, stat Doppler/US ordered. Will follow Bilateral limb swelling -left swelling resolved. Liver vs heart issues. No ascites on exam. Echo WNL, not cardiac related. Referred to liver clinic Compression stockings advised Decrease salt Macrocytosis-improve. Due to chronic alcohol use. Patient strongly encouraged to quit. Last drink was 01/05/2022 Chronic etoh abuse-no longer drinking.Last drink was 01/05/2022 -last alcohol use was prior to admission -Patient strongly encouraged to stay off -encouraged thiamine and folate Liver cirrhosis Due to chronic alcohol use Pt now sober, does not plan to take up etoh again after his near experience needing ICU stay. Referred to hepatology-apt08/14/22 More than 50% spent in performing the following complex tasks- reviewing notes on epic, ordering labs and reviewing results, obtaining history, performing physical exam, counseling and educating patient, documentation, independently interpreting results and discussing them with patient, ordering med s/tests/procedures and coordinating care. After visit, pt was given the opportunity to ask questions and all questions were answered to pt's satisfaction. Patient agrees with plan as highlighted above and knows when to call for concerning symptoms. Problem List Items Addressed This Visit Gastroenterology Alcoholic cirrhosis of liver without ascites (HCC) Other Hemolytic anemia (HCC) - Primary Relevant Orders COMPLETE BLOOD COUNT W/DIFF BASIC METABOLIC PANEL HEPATIC FUNCTION PANEL URIC ACID LDH HAPTOGLOBIN Other Visit Diagnoses Lower extremity edema Relevant Orders US LEG RIGHT VENOUS + DOPPLER TOTAL PROTEIN WITH CREATININE, RANDOM URINE (Completed) Dysuria Relevant Orders URINALYSIS W/REFLEX CULTURE (Completed) TOTAL PROTEIN WITH CREATININE, RANDOM URINE (Completed) URINE CULTURE Future Appointments Date Time Provider Department Center 08/19/2022 8:30 AM [facility] OP ULTRASOUND 2 [facility] US [facility] Radiolog 08/19/2022 1:45 PM [facility] OP ULTRASOUND 2 [facility] US [facility] Radiolog 08/28/2022 10:30 AM Maria C Faustin APRN-[facility] 09/19/2022 11:00 AM Maria C Faustin APRN-CNP [facility] 11/13/2022 11:30 AM Tanvir Black MD [facility] 11/13/2022 12:00 PM ONC NURSE [facility] Tanvir Black MD Hematology/Oncology 08/14/22 4:09 PM * Jojo Garcia - 08/14/2022 11:52 AM EST .Patient was identified by name and date of . Jojo Garcia .Patient at risk for falls:No Falls Risk protocol implemented: No documented in this [id number] History of Present illness Narrative* Emily Dunn RN - 08/14/2022 2:08 PM EST During this visit the vaccine(s) was: Administered Obtained informed verbal consent from patient/parent/patient guest service representative for immunization(s) as ordered, questionnaire completed and VIS educational handouts reviewed with patient/parent/patient guest service representative who denies contraindications and verbalizes understanding of indication, potential side effect and actions to be taken if side effects occur. Double identification of patient completed with patient/parent/patient guest service representative using name and prior to administration, and patient tolerated immunization(s) administration without incident. * Maura Canela - 08/14/2022 1:08 PM EST Patient was identified by name and date of . Maura MelonieoPatient at risk for falls:No Falls Risk protocol implemented: No * Maria C Faustin APRN-[employer] - 08/14/2022 1:00 PM EST Images from the original note were not included. Department of Hepatology Patient name: Will Anderson : 1985 Date: 08/14/22 Referring Provider: Tanvir Black MD Subjective Chief Complaint: I had the pleasure of speaking with Will Anderson, for chief complaint of cirrhosis(see problem-baseddocumentation below for details). A copy of today's note will be communicated to referring doctor via the electronic medical record or fax. Referring Provider: Tanvir Black MD History of Present Illness: Will Anderson is a 36 year old male who presents for management of decompensated etoh cirrhosis, c/b by HE and jaundice (tbili 8.3). Referring Provider: Tanvir Black MD. Patient is new to liver clinic. US with dopplers 01/2022 patent vessels, 01/2022 US liver no suspicious hepatic lesions. Last alcohol 01/05/2022, stopped after admitted for alcoholic liver disease related complications, he became encephalopathic due to alcohol withdrawal and hepatic encephalopathy, required precedex drip. Doing well with sobriety. HE treated with lactulose and rifaximin. He is no longer taking rifaximin (may not have been ordered after hospital d/c). Patient reports running out of lactulose, went several days witho ut BM, experienced symptoms of chills, shaking, pain, also noticed foul smell in urine. Patient took laxative and had large BM, afterwards felt much better. PMHx significant for autoimmune hemolytic anemia, etoh abuse, and cirrhosis. Patient reports painful leg swelling in RLE, has US today to check for DVT. He is anxious and wants to do whatever he can to improve his health. There is no history of hematemesis, coffee ground emesis, hematochezia, jaundice, ascites or melena. FH: There is no history of liver cancer, cirrhosis or other liver related disease. No autoimmune. 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 Family History family history is not on file. Social History Social History Tobacco Use Smoking status: Former Types: Cigarettes Smokeless tobacco: Current Types: Chew Data Review All data reviewed and updated as appropriate Prior additional labs: Component 01/08/2022 HBsAg Non-Reactive Hep B Surface Ab <3.1 Hep B Core Ab Total Nonreactive Hepatitis C Ab Nonreactive Hepatitis C RNA Quant Not Detected Hep A Ab Total Reactive (A) Hep A Ab IgM Nonreactive CHILD-POTTS SCORE: B-9 Score: A= 5-6points B= 7-9points C= 10-15 points 1point 2points 3points Points Bilirubin(mg/dl) <2.0 2.0-3.0 >3.0 3 Albumin(g/dl) >/=3.5 2.8-3.4 <2.7 2 Protime(INR) </=1.5 1.6-2.4 >/=2.5 2 Ascites none mild moderate 1 Encephalopathy none 1-2 3-4 1 Total 9 MELD-Na score: 27 at 01/17/2022 7:09 AM MELD score: 24 at 01/17/2022 7:09 AM Calculated from: Serum Creatinine: 0.42 mg/dL (Using min of 1 mg/dL) at 01/17/2022 7:09 AM Serum Sodium: 131 mmol/L at 01/17/2022 7:09 AM Total Bilirubin: 12.6 mg/dL at 01/17/2022 7:09 AM INR(ratio): 1.97 at 01/17/2022 6:18 AM Age: 36 years Prior liver imagin01/2022 US Liver/dopplers IMPRESSION: 1. The portal veins are patent and have normal direction of flow. 2. The hepatic veins are patent and have dampened spectral Doppler waveforms, probably secondary tocirrhosis. 3. Recanalized umbilical veins are well-seen on recent CT scan although are not demonstrated on this ultrasound. 4. Irregular hyperechoic liver probably representing combination of steatosis and cirrhosis. A formal liver parenchymal evaluation was not performed. 5. Perihepatic ascites, probably increased in volume from recent prior CT. 01/2022 US Liver: IMPRESSION: 1. Cirrhosis with severe hepatic steatosis. 2. Focal asymmetric gallbladder wall thickening most suggestive of adenomyosis. Gallbladder sludge.No pericholecystic fluid or sonographic Galeano's sign to suggest acute cholecystitis. 3. Normal size common bile duct measuring 5 mm. Mild intrahepatic biliary dilatation is noted. Prior endoscopies: Colonoscopy: EGD: Lab Review: CBC (last 3 years, up to 5 values) (Last 5 results in the past 3 years) WBC RBC Hgb Hct MCV RDW Plt 05/06/22 1039 4.2 3.21 11.5 32.5 101 16.8 90 03/13/22 1159 4.0 2.81 9.9 28.4 101 16.2 114 02/11/22 1115 4.9 2.69 10.0 29.1 108 17.1 81 01/17/22 0618 9.5 2.09 8.0 23.3 111 23.6 96 01/16/22 0503 9.2 1.92 7.4 21.6 112 23.7 94 Basic Metabolic Panel (Last 5 results in the past 3 years) Na K Cl CO2 Gap Glu BUN Cr Ca 05/06/22 1039 137 3.6 105 25 11 79 3 0.58 Comment: Grossly icteric; may falsely decrease creatinine 8.9 03/13/22 1159 135 3.6 103 25 11 119 3 0.51 Comment: Grossly icteric; may falsely decrease creatinine 8.2 02/11/22 1115 134 3.3 103 24 10 105 7 0.49 Comment: Grossly icteric; may falsely decrease creatinine 8.2 01/17/22 0709 131 3.8 99 23 13 84 8 0.42 Comment: Grossly icteric; may falsely decrease creatinine 8.2 01/16/22 0503 132 3.7 98 24 14 102 9 0.42 Comment: Grossly icteric; may falsely decrease creatinine 8.3 LFT's (last 3 years, up to 5 values) (Last 5 results in the past 3 years) T Prot Albumin D Bili T Bili Alk Phos ALT AST 05/06/22 1039 6.7 3.0 1.50 8.3 373 47 87 03/13/22 1159 6.2 2.6 1.20 5.6 278 33 68 02/11/22 1115 6.2 2.8 1.70 7.7 226 77 88 01/17/22 0709 6.7 2.8 2.40 12.6 Comment: Elevated bilirubin may falsely lower creatinine 133 75 94 01/16/22 0503 6.3 2.7 2.30 12.7 Comment: Elevated bilirubin may falsely lower creatinine 124 69 93 PT/INR (Last 5 results in the past 365 days) PT aPTT INR 01/17/22 0618 1.97 01/16/22 0503 2.08 01/15/22 0327 1.89 01/14/22 0355 1.94 01/13/22 0252 2.05 No results found for: AFP Past Medical History Past Medical History: Diagnosis Date 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 Allergies is allergic to amoxacillin [amoxicillin]. Medications Current Outpatient Medications Medication Sig Dispense Refill lactulose 20 g/30 mL SOLN oral solution Take 30 mL by mouth 4 times daily as needed. Titrate 2-3 bowel movements/day 946 mL 3 clindamycin (CLEOCIN) 150 MG capsule Take by mouth. (Patient not taking: Reported on 08/14/2022) ondansetron (ZOFRAN-ODT) 4 MG disintegrating tablet Take 1 Tablet by mouth every 12 hours as neededfor Nausea. Place 1 tablet under tongue as needed for nausea. 30 Tablet 2 vitamin B-1 (THIAMINE) 100 MG tablet Take 1 Tablet by mouth daily. 90 Tablet 3 Multiple Vitamin (Multi-Vitamins) tablet Take 1 Tablet by mouth daily. 90 Tablet 3 folic acid 1 MG tablet Take 1 Tablet by mouth daily. 90 Tablet 3 sulfamethoxazole-trimethoprim 800-160 MG (BACTRIM DS) 800-160 MG per tablet Take 1 tablet by mouth every Thursday, , and Thursday. 30 Tablet 5 mycophenolate (CELLCEPT) 500 MG tablet Take 1 Tablet by mouth 2 times daily. 120 Tablet 3 esomeprazole (NEXIUM) 40 MG capsule Take 1 Capsule by mouth daily (30 minutes before breakfast). (Patient not taking: Reported on 08/14/2022) 28 Capsule 1 No current facility-administered medications for this visit. REVIEW OF SYSTEMS Review of Systems Constitutional: Negative. Negative for malaise/fatigue and weight loss. Eyes: Negative. Respiratory: Negative for shortness of breath. Cardiovascular: Positive for leg swelling (RLE). Negative for chest pain. Gastrointestinal: Negative for abdominal pain, blood in stool, melena, nausea and vomiting. No hematemesis, or confusion Skin: Negative. Endo/Heme/Allergies: Does not bruise/bleed easily. Psychiatric/Behavioral: Negative for memory loss and substance abuse. The patient has insomnia. All other systems reviewed and are negative. Objective Vital Signs BP 128/60 Pulse 84 Temp 98.2 F (36.8 C) (Temporal) Wt 173 lb (78.5 kg) BMI 27.10 kg/m BMI: 27.1 PHYSICAL EXAM Physical Exam Vitals and nursing note reviewed. Constitutional: Appearance: Normal appearance. He is not toxic-appearing or diaphoretic. Eyes: General: Scleral icterus present. Conjunctiva/sclera: Conjunctivae normal. Cardiovascular: Rate and Rhythm: Normal rate and regular rhythm. Pulmonary: Effort: Pulmonary effort is normal. No respiratory distress. Breath sounds: No wheezing. Abdominal: General: Bowel sounds are normal. There is no distension. Palpations: Abdomen is soft. There is no mass. Tenderness: There is no abdominal tenderness. Comments: No jaundice, scleral icterus, or asterixis Musculoskeletal: General: Normal range of motion. Right lower leg: Edema present. Skin: General: Skin is warm and dry. Coloration: Skin is jaundiced. Neurological: Mental Status: He is alert and oriented to person, place, and time. He is not disoriented. Psychiatric: Behavior: Behavior is not agitated. Assessment / Plan Orders Placed This Encounter Procedures US Liver/Gall Bladder/Pancreas US HEP PORT SPLEN VEIN + DOPPLER Hep B Vaccine Adult, 1.0cc, IM, once Prothrombin Time & INR Alpha Fetoprotein Tumor Marker Complete Blood Count Basic Metabolic Panel Hepatic Function Panel 1. Alcoholic cirrhosis, unspecified whether ascites present (HCC) 2. Iron deficiency anemia, unspecified iron deficiency anemia type 3. Alcoholic cirrhosis of liver without ascites (HCC) Follow up: Follow up in about 2 weeks (around 08/28/2022) for in-person visit, telephone visit (telehealth). #Decompensated Cirrhosis (Comprehensive Plan) Etiology of cirrhosis: etoh Transplant Candidate: MELD-Na score: 27 at 01/17/2022 7:09 AM MELD score: 24 at 01/17/2022 7:09 AM Calculated from: Serum Creatinine: 0.42 mg/dL (Using min of 1 mg/dL) at 01/17/2022 7:09 AM Serum Sodium: 131 mmol/L at 01/17/2022 7:09 AM Total Bilirubin: 12.6 mg/dL at 01/17/2022 7:09 AM INR(ratio): 1.97 at 01/17/2022 6:18 AM Age: 36 years -Update lab work and MELD Na/CP score accordingly; assess need for transplant referral -will update labs, if MELD remains >20 will consider transplant evaluation -discussed indications and that transplant is only life saving measure Ascites: -of no clinical significance -RLE edema, obtaining US today for DVT, given edema only present in right leg unlikely to be r/t liver Screening for Portal HTN/esohpageal varices: -Ordered given decompensation, none previously, PLT 90 Hepatocellular carcinoma surveillance: -US q 6 months, last 01/2022, ordered, given new edema, elevated tbili, jaundice, will obtain with doppler Hepatic encephalopathy: -No covert/ overt HE noted -episode of HE 01/2022, continue lactulose, titrate 2-3 BM/day -consider rifaximin based on pt response Hepatitis Vaccination status: -Hepatitis Vaccination status:vaccinate if not immune. -Hep #1/3 to be given today Substance dependence: -Counseled on substance abuse and alcohol use-stressed abstinence, referral if indicated -sober since 01/05/22 Preventative: Screening colonoscopy: age 44 Influenza Vaccine: annually PNA Vaccine: per PCP Preventive Measures Follow with PCP regarding age related screening measures Follow up: Follow up in about 2 weeks (around 08/28/2022) for in-person visit, telephone visit (telehealth). Patient/family is agreeable to the plan and verbalized understanding. Total length of time 65 (minutes) of the encounter and more than 50% was spent counseling, educating, and/or coordination of care. Sincerely, KONRAD Quevedo [facility] Division of Gastroenterology & Hepatology 08/14/22 1:54 PM GI clinic documented in this [id number] History of Present illness Narrative* Emily Dunn RN - 08/14/2022 2:08 PM EST During this visit the vaccine(s) was: Administered Obtained informed verbal consent from patient/parent/patient guest service representative for immunization(s) as ordered, questionnaire completed and VIS educational handouts reviewed with patient/parent/patient guest service representative who denies contraindications and verbalizes understanding of indication, potential side effect and actions to be taken if side effects occur. Double identification of patient completed with patient/parent/patient guest service representative using name and prior to administration, and patient tolerated immunization(s) administration without incident. * Maura Canela - 08/14/2022 1:08 PM EST Patient was identified by name and date of . Maura Foxtient at risk for falls:No Falls Risk protocol implemented: No * Maria C Faustin, [employer]PER[employer] - 08/14/2022 1:00 PM EST Images from the original note were not included. Department of Hepatology Patient name: Will Anderson : 1985 Date: 08/15/22 Referring Provider: Tanvir Black MD Subjective Chief Complaint: I had the pleasure of speaking with Will Anderson, for chief complaint of cirrhosis(see problem-baseddocumentation below for details). A copy of today's note will be communicated to referring doctor via the electronic medical record or fax. Referring Provider: Tanvir Black MD History of Present Illness: Will Anderson is a 36 year old male who presents for management of decompensated etoh cirrhosis, c/b by HE and jaundice (tbili 8.3). Referring Provider: Tanvir Black MD. Patient is new to liver clinic. US with dopplers 01/2022 patent vessels, 01/2022 US liver no suspicious hepatic lesions. Last alcohol 01/05/2022, stopped after admitted for alcoholic liver disease related complications, he became encephalopathic due to alcohol withdrawal and hepatic encephalopathy, required precedex drip. Doing well with sobriety. HE treated with lactulose and rifaximin. He is no longer taking rifaximin (may not have been ordered after hospital d/c). Patient reports running out of lactulose, went several days witho ut BM, experienced symptoms of chills, shaking, pain, also noticed foul smell in urine. Patient took laxative and had large BM, afterwards felt much better. PMHx significant for autoimmune hemolytic anemia, etoh abuse, and cirrhosis. Patient reports painful leg swelling in RLE, has US today to check for DVT. He is anxious and wants to do whatever he can to improve his health. There is no history of hematemesis, coffee ground emesis, hematochezia, jaundice, ascites or melena. FH: There is no history of liver cancer, cirrhosis or other liver related disease. No autoimmune. 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 Family History family history is not on file. Social History Social History Tobacco Use Smoking status: Former Types: Cigarettes Smokeless tobacco: Current Types: Chew Data Review All data reviewed and updated as appropriate Prior additional labs: Component 01/08/2022 HBsAg Non-Reactive Hep B Surface Ab <3.1 Hep B Core Ab Total Nonreactive Hepatitis C Ab Nonreactive Hepatitis C RNA Quant Not Detected Hep A Ab Total Reactive (A) Hep A Ab IgM Nonreactive CHILD-POTTS SCORE: B-9 Score: A= 5-6points B= 7-9points C= 10-15 points 1point 2points 3points Points Bilirubin(mg/dl) <2.0 2.0-3.0 >3.0 3 Albumin(g/dl) >/=3.5 2.8-3.4 <2.7 2 Protime(INR) </=1.5 1.6-2.4 >/=2.5 2 Ascites none mild moderate 1 Encephalopathy none 1-2 3-4 1 Total 9 MELD-Na score: 27 at 01/17/2022 7:09 AM MELD score: 24 at 01/17/2022 7:09 AM Calculated from: Serum Creatinine: 0.42 mg/dL (Using min of 1 mg/dL) at 01/17/2022 7:09 AM Serum Sodium: 131 mmol/L at 01/17/2022 7:09 AM Total Bilirubin: 12.6 mg/dL at 01/17/2022 7:09 AM INR(ratio): 1.97 at 01/17/2022 6:18 AM Age: 36 years Prior liver imagin01/2022 US Liver/dopplers IMPRESSION: 1. The portal veins are patent and have normal direction of flow. 2. The hepatic veins are patent and have dampened spectral Doppler waveforms, probably secondary tocirrhosis. 3. Recanalized umbilical veins are well-seen on recent CT scan although are not demonstrated on this ultrasound. 4. Irregular hyperechoic liver probably representing combination of steatosis and cirrhosis. A formal liver parenchymal evaluation was not performed. 5. Perihepatic ascites, probably increased in volume from recent prior CT. 01/2022 US Liver: IMPRESSION: 1. Cirrhosis with severe hepatic steatosis. 2. Focal asymmetric gallbladder wall thickening most suggestive of adenomyosis. Gallbladder sludge.No pericholecystic fluid or sonographic Galeano's sign to suggest acute cholecystitis. 3. Normal size common bile duct measuring 5 mm. Mild intrahepatic biliary dilatation is noted. Prior endoscopies: Colonoscopy: EGD: Lab Review: CBC (last 3 years, up to 5 values) (Last 5 results in the past 3 years) WBC RBC Hgb Hct MCV RDW Plt 08/14/22 1203 9.2 3.03 11.6 31.8 105 14.8 100 05/06/22 1039 4.2 3.21 11.5 32.5 101 16.8 90 03/13/22 1159 4.0 2.81 9.9 28.4 101 16.2 114 02/11/22 1115 4.9 2.69 10.0 29.1 108 17.1 81 01/17/22 0618 9.5 2.09 8.0 23.3 111 23.6 96 Basic Metabolic Panel (Last 5 results in the past 3 years) Na K Cl CO2 Gap Glu BUN Cr Ca 08/14/22 1203 132 3.0 97 24 14 89 5 0.55 7.9 05/06/22 1039 137 3.6 105 25 11 79 3 0.58 Comment: Grossly icteric; may falsely decrease creatinine 8.9 03/13/22 1159 135 3.6 103 25 11 119 3 0.51 Comment: Grossly icteric; may falsely decrease creatinine 8.2 02/11/22 1115 134 3.3 103 24 10 105 7 0.49 Comment: Grossly icteric; may falsely decrease creatinine 8.2 01/17/22 0709 131 3.8 99 23 13 84 8 0.42 Comment: Grossly icteric; may falsely decrease creatinine 8.2 LFT's (last 3 years, up to 5 values) (Last 5 results in the past 3 years) T Prot Albumin D Bili T Bili Alk Phos ALT AST 08/14/22 1203 6.4 2.9 2.83 10.6 Comment: Elevated bilirubin may falsely lower creatinine 245 47 96 05/06/22 1039 6.7 3.0 1.50 8.3 373 47 87 03/13/22 1159 6.2 2.6 1.20 5.6 278 33 68 02/11/22 1115 6.2 2.8 1.70 7.7 226 77 88 01/17/22 0709 6.7 2.8 2.40 12.6 Comment: Elevated bilirubin may falsely lower creatinine 133 75 94 PT/INR (Last 5 results in the past 365 days) PT aPTT INR 01/17/22 0618 1.97 01/16/22 0503 2.08 01/15/22 0327 1.89 01/14/22 0355 1.94 01/13/22 0252 2.05 No results found for: AFP Past Medical History Past Medical History: Diagnosis Date 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 Allergies is allergic to amoxacillin [amoxicillin]. Medications Current Outpatient Medications Medication Sig Dispense Refill nitrofurantoin monohydrate macrocrystal (MACROBID) 100 MG capsule Take 1 Capsule by mouth 2 times daily for 10 days. 20 Capsule 0 lactulose 20 g/30 mL SOLN oral solution Take 30 mL by mouth 4 times daily as needed. Titrate 2-3 bowel movements/day 946 mL 3 clindamycin (CLEOCIN) 150 MG capsule Take by mouth. (Patient not taking: Reported on 08/14/2022) ondansetron (ZOFRAN-ODT) 4 MG disintegrating tablet Take 1 Tablet by mouth every 12 hours as neededfor Nausea. Place 1 tablet under tongue as needed for nausea. 30 Tablet 2 vitamin B-1 (THIAMINE) 100 MG tablet Take 1 Tablet by mouth daily. 90 Tablet 3 Multiple Vitamin (Multi-Vitamins) tablet Take 1 Tablet by mouth daily. 90 Tablet 3 folic acid 1 MG tablet Take 1 Tablet by mouth daily. 90 Tablet 3 sulfamethoxazole-trimethoprim 800-160 MG (BACTRIM DS) 800-160 MG per tablet Take 1 tablet by mouth every Thursday, , and Thursday. 30 Tablet 5 mycophenolate (CELLCEPT) 500 MG tablet Take 1 Tablet by mouth 2 times daily. 120 Tablet 3 esomeprazole (NEXIUM) 40 MG capsule Take 1 Capsule by mouth daily (30 minutes before breakfast). (Patient not taking: Reported on 08/14/2022) 28 Capsule 1 No current facility-administered medications for this visit. REVIEW OF SYSTEMS Review of Systems Constitutional: Negative. Negative for malaise/fatigue and weight loss. Eyes: Negative. Respiratory: Negative for shortness of breath. Cardiovascular: Positive for leg swelling (RLE). Negative for chest pain. Gastrointestinal: Negative for abdominal pain, blood in stool, melena, nausea and vomiting. No hematemesis, or confusion Skin: Negative. Endo/Heme/Allergies: Does not bruise/bleed easily. Psychiatric/Behavioral: Negative for memory loss and substance abuse. The patient has insomnia. All other systems reviewed and are negative. Objective Vital Signs BP 128/60 Pulse 84 Temp 98.2 F (36.8 C) (Temporal) Wt 173 lb (78.5 kg) BMI 27.10 kg/m BMI: 27.1 PHYSICAL EXAM Physical Exam Vitals and nursing note reviewed. Constitutional: Appearance: Normal appearance. He is not toxic-appearing or diaphoretic. Eyes: General: Scleral icterus present. Conjunctiva/sclera: Conjunctivae normal. Cardiovascular: Rate and Rhythm: Normal rate and regular rhythm. Pulmonary: Effort: Pulmonary effort is normal. No respiratory distress. Breath sounds: No wheezing. Abdominal: General: Bowel sounds are normal. There is no distension. Palpations: Abdomen is soft. There is no mass. Tenderness: There is no abdominal tenderness. Comments: No jaundice, scleral icterus, or asterixis Musculoskeletal: General: Normal range of motion. Right lower leg: Edema present. Skin: General: Skin is warm and dry. Coloration: Skin is jaundiced. Neurological: Mental Status: He is alert and oriented to person, place, and time. He is not disoriented. Psychiatric: Behavior: Behavior is not agitated. Assessment / Plan Orders Placed This Encounter Procedures US Liver/Gall Bladder/Pancreas US HEP PORT SPLEN VEIN + DOPPLER Hep B Vaccine Adult, 1.0cc, IM, once Prothrombin Time & INR Alpha Fetoprotein Tumor Marker Complete Blood Count Basic Metabolic Panel Hepatic Function Panel 1. Alcoholic cirrhosis, unspecified whether ascites present (HCC) 2. Iron deficiency anemia, unspecified iron deficiency anemia type 3. Alcoholic cirrhosis of liver without ascites (HCC) 4. Body mass index (BMI) 27.0-27.9, adult Follow up: Follow up in about 2 weeks (around 08/28/2022) for in-person visit, telephone visit (telehealth). #Decompensated Cirrhosis (Comprehensive Plan) Etiology of cirrhosis: etoh Transplant Candidate: MELD-Na score: 27 at 01/17/2022 7:09 AM MELD score: 24 at 01/17/2022 7:09 AM Calculated from: Serum Creatinine: 0.42 mg/dL (Using min of 1 mg/dL) at 01/17/2022 7:09 AM Serum Sodium: 131 mmol/L at 01/17/2022 7:09 AM Total Bilirubin: 12.6 mg/dL at 01/17/2022 7:09 AM INR(ratio): 1.97 at 01/17/2022 6:18 AM Age: 36 years -Update lab work and MELD Na/CP score accordingly; assess need for transplant referral -will update labs, if MELD remains >20 will consider transplant evaluation -discussed indications and that transplant is only life saving measure Ascites: -of no clinical significance -RLE edema, obtaining US today for DVT, given edema only present in right leg unlikely to be r/t liver Screening for Portal HTN/esohpageal varices: -Ordered given decompensation, none previously, PLT 90 Hepatocellular carcinoma surveillance: -US q 6 months, last 01/2022, ordered, given new edema, elevated tbili, jaundice, will obtain with doppler Hepatic encephalopathy: -No covert/ overt HE noted -episode of HE 01/2022, continue lactulose, titrate 2-3 BM/day -consider rifaximin based on pt response Hepatitis Vaccination status: -Hepatitis Vaccination status:vaccinate if not immune. -Hep #1/3 to be given today Substance dependence: -Counseled on substance abuse and alcohol use-stressed abstinence, referral if indicated -sober since 01/05/22 Preventative: Screening colonoscopy: age 44 Influenza Vaccine: annually PNA Vaccine: per PCP Preventive Measures Follow with PCP regarding age related screening measures Follow up: Follow up in about 2 weeks (around 08/28/2022) for in-person visit, telephone visit (telehealth). Patient/family is agreeable to the plan and verbalized understanding. Total length of time 65 (minutes) of the encounter and more than 50% was spent counseling, educating, and/or coordination of care. Sincerely, KONRAD Quevedo [facility] Division of Gastroenterology & Hepatology 08/15/22 8:19 AM GI clinic documented in this [id number] History of Present illness Narrative* Emily Dunn RN - 08/14/2022 2:08 PM EST During this visit the vaccine(s) was: Administered Obtained informed verbal consent from patient/parent/patient guest service representative for immunization(s) as ordered, questionnaire completed and VIS educational handouts reviewed with patient/parent/patient guest service representative who denies contraindications and verbalizes understanding of indication, potential side effect and actions to be taken if side effects occur. Double identification of patient completed with patient/parent/patient guest service representative using name and prior to administration, and patient tolerated immunization(s) administration without incident. * Maura Canela - 08/14/2022 1:08 PM EST Patient was identified by name and date of . Maura Foxtient at risk for falls:No Falls Risk protocol implemented: No * Maria C Faustin APRN-CNP - 08/14/2022 1:00 PM EST Images from the original note were not included. Department of Hepatology Patient name: Will Anderson : 1985 Date: 08/15/22 Referring Provider: Tanvir Black MD Subjective Chief Complaint: I had the pleasure of speaking with Will Anderson, for chief complaint of cirrhosis(see problem-baseddocumentation below for details). A copy of today's note will be communicated to referring doctor via the electronic medical record or fax. Referring Provider: Tanvir Black MD History of Present Illness: Will Anderson is a 36 year old male who presents for management of decompensated etoh cirrhosis, c/b by HE and jaundice (tbili 8.3). Referring Provider: Tanvir Black MD. Patient is new to liver clinic. US with dopplers 01/2022 patent vessels, 01/2022 US liver no suspicious hepatic lesions. Last alcohol 01/05/2022, stopped after admitted for alcoholic liver disease related complications, he became encephalopathic due to alcohol withdrawal and hepatic encephalopathy, required precedex drip. Doing well with sobriety. HE treated with lactulose and rifaximin. He is no longer taking rifaximin (may not have been ordered after hospital d/c). Patient reports running out of lactulose, went several days witho ut BM, experienced symptoms of chills, shaking, pain, also noticed foul smell in urine. Patient took laxative and had large BM, afterwards felt much better. PMHx significant for autoimmune hemolytic anemia, etoh abuse, and cirrhosis. Patient reports painful leg swelling in RLE, has US today to check for DVT. He is anxious and wants to do whatever he can to improve his health. There is no history of hematemesis, coffee ground emesis, hematochezia, jaundice, ascites or melena. FH: There is no history of liver cancer, cirrhosis or other liver related disease. No autoimmune. 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 Family History family history is not on file. Social History Social History Tobacco Use Smoking status: Former Types: Cigarettes Smokeless tobacco: Current Types: Chew Data Review All data reviewed and updated as appropriate Prior additional labs: Component 01/08/2022 HBsAg Non-Reactive Hep B Surface Ab <3.1 Hep B Core Ab Total Nonreactive Hepatitis C Ab Nonreactive Hepatitis C RNA Quant Not Detected Hep A Ab Total Reactive (A) Hep A Ab IgM Nonreactive CHILD-POTTS SCORE: B-9 Score: A= 5-6points B= 7-9points C= 10-15 points 1point 2points 3points Points Bilirubin(mg/dl) <2.0 2.0-3.0 >3.0 3 Albumin(g/dl) >/=3.5 2.8-3.4 <2.7 2 Protime(INR) </=1.5 1.6-2.4 >/=2.5 2 Ascites none mild moderate 1 Encephalopathy none 1-2 3-4 1 Total 9 MELD-Na score: 27 at 01/17/2022 7:09 AM MELD score: 24 at 01/17/2022 7:09 AM Calculated from: Serum Creatinine: 0.42 mg/dL (Using min of 1 mg/dL) at 01/17/2022 7:09 AM Serum Sodium: 131 mmol/L at 01/17/2022 7:09 AM Total Bilirubin: 12.6 mg/dL at 01/17/2022 7:09 AM INR(ratio): 1.97 at 01/17/2022 6:18 AM Age: 36 years Prior liver imagin01/2022 US Liver/dopplers IMPRESSION: 1. The portal veins are patent and have normal direction of flow. 2. The hepatic veins are patent and have dampened spectral Doppler waveforms, probably secondary tocirrhosis. 3. Recanalized umbilical veins are well-seen on recent CT scan although are not demonstrated on this ultrasound. 4. Irregular hyperechoic liver probably representing combination of steatosis and cirrhosis. A formal liver parenchymal evaluation was not performed. 5. Perihepatic ascites, probably increased in volume from recent prior CT. 01/2022 US Liver: IMPRESSION: 1. Cirrhosis with severe hepatic steatosis. 2. Focal asymmetric gallbladder wall thickening most suggestive of adenomyosis. Gallbladder sludge.No pericholecystic fluid or sonographic Galeano's sign to suggest acute cholecystitis. 3. Normal size common bile duct measuring 5 mm. Mild intrahepatic biliary dilatation is noted. Prior endoscopies: Colonoscopy: EGD: Lab Review: CBC (last 3 years, up to 5 values) (Last 5 results in the past 3 years) WBC RBC Hgb Hct MCV RDW Plt 08/14/22 1203 9.2 3.03 11.6 31.8 105 14.8 100 05/06/22 1039 4.2 3.21 11.5 32.5 101 16.8 90 03/13/22 1159 4.0 2.81 9.9 28.4 101 16.2 114 02/11/22 1115 4.9 2.69 10.0 29.1 108 17.1 81 01/17/22 0618 9.5 2.09 8.0 23.3 111 23.6 96 Basic Metabolic Panel (Last 5 results in the past 3 years) Na K Cl CO2 Gap Glu BUN Cr Ca 08/14/22 1203 132 3.0 97 24 14 89 5 0.55 7.9 05/06/22 1039 137 3.6 105 25 11 79 3 0.58 Comment: Grossly icteric; may falsely decrease creatinine 8.9 03/13/22 1159 135 3.6 103 25 11 119 3 0.51 Comment: Grossly icteric; may falsely decrease creatinine 8.2 02/11/22 1115 134 3.3 103 24 10 105 7 0.49 Comment: Grossly icteric; may falsely decrease creatinine 8.2 01/17/22 0709 131 3.8 99 23 13 84 8 0.42 Comment: Grossly icteric; may falsely decrease creatinine 8.2 LFT's (last 3 years, up to 5 values) (Last 5 results in the past 3 years) T Prot Albumin D Bili T Bili Alk Phos ALT AST 08/14/22 1203 6.4 2.9 2.83 10.6 Comment: Elevated bilirubin may falsely lower creatinine 245 47 96 05/06/22 1039 6.7 3.0 1.50 8.3 373 47 87 03/13/22 1159 6.2 2.6 1.20 5.6 278 33 68 02/11/22 1115 6.2 2.8 1.70 7.7 226 77 88 01/17/22 0709 6.7 2.8 2.40 12.6 Comment: Elevated bilirubin may falsely lower creatinine 133 75 94 PT/INR (Last 5 results in the past 365 days) PT aPTT INR 01/17/22 0618 1.97 01/16/22 0503 2.08 01/15/22 0327 1.89 01/14/22 0355 1.94 01/13/22 0252 2.05 No results found for: AFP Past Medical History Past Medical History: Diagnosis Date 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 Allergies is allergic to amoxacillin [amoxicillin]. Medications Current Outpatient Medications Medication Sig Dispense Refill nitrofurantoin monohydrate macrocrystal (MACROBID) 100 MG capsule Take 1 Capsule by mouth 2 times daily for 10 days. 20 Capsule 0 lactulose 20 g/30 mL SOLN oral solution Take 30 mL by mouth 4 times daily as needed. Titrate 2-3 bowel movements/day 946 mL 3 clindamycin (CLEOCIN) 150 MG capsule Take by mouth. (Patient not taking: Reported on 08/14/2022) ondansetron (ZOFRAN-ODT) 4 MG disintegrating tablet Take 1 Tablet by mouth every 12 hours as neededfor Nausea. Place 1 tablet under tongue as needed for nausea. 30 Tablet 2 vitamin B-1 (THIAMINE) 100 MG tablet Take 1 Tablet by mouth daily. 90 Tablet 3 Multiple Vitamin (Multi-Vitamins) tablet Take 1 Tablet by mouth daily. 90 Tablet 3 folic acid 1 MG tablet Take 1 Tablet by mouth daily. 90 Tablet 3 sulfamethoxazole-trimethoprim 800-160 MG (BACTRIM DS) 800-160 MG per tablet Take 1 tablet by mouth every Thursday, , and Thursday. 30 Tablet 5 mycophenolate (CELLCEPT) 500 MG tablet Take 1 Tablet by mouth 2 times daily. 120 Tablet 3 esomeprazole (NEXIUM) 40 MG capsule Take 1 Capsule by mouth daily (30 minutes before breakfast). (Patient not taking: Reported on 08/14/2022) 28 Capsule 1 No current facility-administered medications for this visit. REVIEW OF SYSTEMS Review of Systems Constitutional: Negative. Negative for malaise/fatigue and weight loss. Eyes: Negative. Respiratory: Negative for shortness of breath. Cardiovascular: Positive for leg swelling (RLE). Negative for chest pain. Gastrointestinal: Negative for abdominal pain, blood in stool, melena, nausea and vomiting. No hematemesis, or confusion Skin: Negative. Endo/Heme/Allergies: Does not bruise/bleed easily. Psychiatric/Behavioral: Negative for memory loss and substance abuse. The patient has insomnia. All other systems reviewed and are negative. Objective Vital Signs BP 128/60 Pulse 84 Temp 98.2 F (36.8 C) (Temporal) Wt 173 lb (78.5 kg) BMI 27.10 kg/m BMI: 27.1 PHYSICAL EXAM Physical Exam Vitals and nursing note reviewed. Constitutional: Appearance: Normal appearance. He is not toxic-appearing or diaphoretic. Eyes: General: Scleral icterus present. Conjunctiva/sclera: Conjunctivae normal. Cardiovascular: Rate and Rhythm: Normal rate and regular rhythm. Pulmonary: Effort: Pulmonary effort is normal. No respiratory distress. Breath sounds: No wheezing. Abdominal: General: Bowel sounds are normal. There is no distension. Palpations: Abdomen is soft. There is no mass. Tenderness: There is no abdominal tenderness. Comments: No jaundice, scleral icterus, or asterixis Musculoskeletal: General: Normal range of motion. Right lower leg: Edema present. Skin: General: Skin is warm and dry. Coloration: Skin is jaundiced. Neurological: Mental Status: He is alert and oriented to person, place, and time. He is not disoriented. Psychiatric: Behavior: Behavior is not agitated. Assessment / Plan Orders Placed This Encounter Procedures US Liver/Gall Bladder/Pancreas US HEP PORT SPLEN VEIN + DOPPLER Hep B Vaccine Adult, 1.0cc, IM, once Prothrombin Time & INR Alpha Fetoprotein Tumor Marker Complete Blood Count Basic Metabolic Panel Hepatic Function Panel 1. Alcoholic cirrhosis, unspecified whether ascites present (HCC) 2. Iron deficiency anemia, unspecified iron deficiency anemia type 3. Alcoholic cirrhosis of liver without ascites (HCC) 4. Body mass index (BMI) 27.0-27.9, adult Follow up: Follow up in about 2 weeks (around 08/28/2022) for in-person visit, telephone visit (telehealth). #Decompensated Cirrhosis (Comprehensive Plan) Etiology of cirrhosis: etoh Transplant Candidate: MELD-Na score: 27 at 01/17/2022 7:09 AM MELD score: 24 at 01/17/2022 7:09 AM Calculated from: Serum Creatinine: 0.42 mg/dL (Using min of 1 mg/dL) at 01/17/2022 7:09 AM Serum Sodium: 131 mmol/L at 01/17/2022 7:09 AM Total Bilirubin: 12.6 mg/dL at 01/17/2022 7:09 AM INR(ratio): 1.97 at 01/17/2022 6:18 AM Age: 36 years -Update lab work and MELD Na/CP score accordingly; assess need for transplant referral -MELD Na score artificially high (elevated PLT and t bili likely 2/2 hemolytic anemia) -discuss with transplant oil burner mechanic, Dr. Cookie and arrange for f/u in fellows clinic for add'l evaluation -discussed indications and that transplant is only life saving measure once progression to ESLD Ascites: -of no clinical significance -RLE edema, obtaining US today for DVT, given edema only present in right leg unlikely to be r/t liver Screening for Portal HTN/esohpageal varices: -Ordered given decompensation, none previously, PLT 90 Hepatocellular carcinoma surveillance: -US q 6 months, last 01/2022, ordered, given new edema, elevated tbili, jaundice, will obtain with doppler Hepatic encephalopathy: -No covert/ overt HE noted -episode of HE 01/2022, continue lactulose, titrate 2-3 BM/day -consider rifaximin based on pt response Hepatitis Vaccination status: -Hepatitis Vaccination status:vaccinate if not immune. -Hep #1/3 to be given today Substance dependence: -Counseled on substance abuse and alcohol use-stressed abstinence, referral if indicated -sober since 01/05/22 Preventative: Screening colonoscopy: age 44 Influenza Vaccine: annually PNA Vaccine: per PCP Preventive Measures Follow with PCP regarding age related screening measures Follow up: Follow up in about 2 weeks (around 08/28/2022) for in-person visit, telephone visit (telehealth). Patient/family is agreeable to the plan and verbalized understanding. Total length of time 65 (minutes) of the encounter and more than 50% was spent counseling, educating, and/or coordination of care. Sincerely, KONRAD Quevedo [facility] Division of Gastroenterology & Hepatology 08/15/22 8:19 AM GI clinic documented in this [id number] History of Present illness Narrative* Jasmyne Grimaldo RN - 08/14/2022 1:07 PM EST Patient was identified by name and date of . Jasmyne Grimaldo RN Patient at risk for falls:No Falls Risk protocol implemented: No Patient in for MD visit, lab draw, and urine test. Urine collected and sent to lab. Unable to draw blood after several attempts. Patient instructed to go to outpatient lab for blood work, stickers given to patient. Patient verbalized understanding of instructions and discharged from clinic. Jasmyne Grimaldo RN documented in this [id number] Instructions* Patient Instructions* Emily Dunn RN - 08/14/2022 12:30 PM EST -can take tylenol up 1/2 recommended daily dose (no more than 2000 mg per day) -no NSAIDs! -Limit salt (2000 mg/day) -take lactulose; can take several doses to achieve 2-3 bowel movements/day, if taking more than 5 doses without desired effect please let me know. Please call any one of these numbers to schedule your Upper Endoscopy. [facility] [address] [id number] [facility] Thursday-Thursday 8A-4P [facility] [address], [place] [id number] Thursday-Thursday 8A-4P [facility]. [address], [place] [id number] Thursday-Thursday 8A-4P Centralized GI Procedure scheduling: UPPER ENDOSCOPY or EGD WHAT IS AN UPPER ENDOSCOPY? Upper endoscopy is a way to look a the inside of the esophagus(food-pipe), the stomach and the duodenum (the first part of the small intestine). A thin, bending tube with a light is used. The doctor looks through this tube. WHAT PREPARATION IS REQUIRED? YOUR STOMACH MUST BE EMPTY. Before the test you should have nothing to eat or drink after midnight.If your procedure is in the afternoon you may drink a small amount ( 6oz) of a clear liquid up to 4hours before the test. CONTACT YOUR PRIMARY CARE PHYSICIAN FOR THE FOLLOWING: - Regarding any changes or what medication should be taken on the test day. - IF you are taking any BLOOD THINNER MEDICATIONS such as Coumadin, Heparin, Ticlid or Plavix, these may or may not be stopped before your test. - DIABETIC patients ask your doctor about diabetic medications for day before and day of the test. Please check your blood sugar before arriving for the test. WHAT SHOULD YOU EXPECT DURING THE TEST? Your throat may be numbed with a spray. Your doctor will give you a medication through a vein to make you feel relaxed. You may hear sounds around you; this is normal. It is important that you lay still and not talk during the test. You will lie on your left side for the test. The tube will be put into your mouth and then the doctor will ask you to swallow. This is not hard to do because the tubeis small. You will have no trouble with breathing. A nurse will be present to assist you before, during, and after the test. WHAT HAPPENS AFTER THE ENDOSCOPY? After the test is done you will be moved to the recovery area of the Endoscopy unit. You will rest for one hour or until the effects of the medication have worn off. Your throat may feel sore for a couple of hours. You may feel a fullness in your stomach because of the air used during the test. If you are having an IV sedated procedure, plan that your stay will be 2 1/2- 3 hours. YOU MUST HAVE A RESPONSIBLE ADULT ACCOMPANY YOU HOME FROM THE ENDOSCOPY UNIT BECAUSE OF THE MEDICATION GIVEN. IF YOU HAVE AN AFTERNOON APPOINTMENT, WE EXPECT YOUR RESPONSIBLE ADULT TO REMAIN IN THE WAITING ROOM DURING YOUR PROCEDURE. YOUR PROCEDURE WILL BE RESCHEDULED IF YOU DO NOT HAVE A RESPONSIBLE ADULT A responsible adult should remain with you for the next 24 hours. If using [employer], cab or bus youmust still have a responsible adult with you and remain with you for the next 24 hours. The hours of operation are 8:00am until 4:00pm. Please arrive at least 30 minutes before your appointment time. If your appointment is scheduled for 8:00 am please arrive 1 hr early (7:00 am). Please call M-F 7:00am-6:00pm for any pre-procedural questions. After hours, please call to speak to the [facility] nurse lead electrical controls engineer. If you need to cancel this appointment, please call , at least 48 hours before your appointment time. For additional health or procedure preparation information call the [facility] line at . The [facility] line is open 24 hours a day including weekends and holidays. PLEASE BRING IN YOUR INSURANCE CARD AND MEDICATIONS OR LIST OF CURRENT MEDICATIONS. PLEASE LEAVE JEWELRY AT HOME AND DO NOT WEAR HEAVY FRAGRANCE OR NAIL ARMENIAN WE MAKE EVERY ATTEMPT TO MAINTAIN OUR SCHEDULE; HOWEVER, IT IS NOT ALWAYS POSSIBLE. SOME PROCEDURESMAY TAKE LONGER THAN OTHERS AND OUR CASES ARE SCHEDULED TO FOLLOW ONE ANOTHER. WE APOLOGIZE FOR ANYDELAYS. Today the following vaccines were administered: Hepatitis B (Hep B). Vaccines may have different side effects and care recommendations. Please refer to the Vaccine Information Sheet(s) (VIS) providedin your preferred language to learn more about the vaccines that were administered today. If you have any problems or questions, please call the [facility] line at [phone]. documented in this [id number] Instructions* Patient Instructions* Emily Dunn RN - 08/14/2022 12:30 PM EST -can take tylenol up 1/2 recommended daily dose (no more than 2000 mg per day) -no NSAIDs! -Limit salt (2000 mg/day) -take lactulose; can take several doses to achieve 2-3 bowel movements/day, if taking more than 5 doses without desired effect please let me know. Please call any one of these numbers to schedule your Upper Endoscopy. [facility] [id number] [place], [place] [id number] [facility] Thursday-Thursday 8A-4P [facility] [address], [place] [address] Thursday-Thursday 8A-4P [facility]. [address], [place] [id number] Thursday-Thursday 8A-4P Centralized GI Procedure scheduling: UPPER ENDOSCOPY or EGD WHAT IS AN UPPER ENDOSCOPY? Upper endoscopy is a way to look a the inside of the esophagus(food-pipe), the stomach and the duodenum (the first part of the small intestine). A thin, bending tube with a light is used. The doctor looks through this tube. WHAT PREPARATION IS REQUIRED? YOUR STOMACH MUST BE EMPTY. Before the test you should have nothing to eat or drink after midnight.If your procedure is in the afternoon you may drink a small amount ( 6oz) of a clear liquid up to 4hours before the test. CONTACT YOUR PRIMARY CARE PHYSICIAN FOR THE FOLLOWING: - Regarding any changes or what medication should be taken on the test day. - IF you are taking any BLOOD THINNER MEDICATIONS such as Coumadin, Heparin, Ticlid or Plavix, these may or may not be stopped before your test. - DIABETIC patients ask your doctor about diabetic medications for day before and day of the test. Please check your blood sugar before arriving for the test. WHAT SHOULD YOU EXPECT DURING THE TEST? Your throat may be numbed with a spray. Your doctor will give you a medication through a vein to make you feel relaxed. You may hear sounds around you; this is normal. It is important that you lay still and not talk during the test. You will lie on your left side for the test. The tube will be put into your mouth and then the doctor will ask you to swallow. This is not hard to do because the tubeis small. You will have no trouble with breathing. A nurse will be present to assist you before, during, and after the test. WHAT HAPPENS AFTER THE ENDOSCOPY? After the test is done you will be moved to the recovery area of the Endoscopy unit. You will rest for one hour or until the effects of the medication have worn off. Your throat may feel sore for a couple of hours. You may feel a fullness in your stomach because of the air used during the test. If you are having an IV sedated procedure, plan that your stay will be 2 1/2- 3 hours. YOU MUST HAVE A RESPONSIBLE ADULT ACCOMPANY YOU HOME FROM THE ENDOSCOPY UNIT BECAUSE OF THE MEDICATION GIVEN. IF YOU HAVE AN AFTERNOON APPOINTMENT, WE EXPECT YOUR RESPONSIBLE ADULT TO REMAIN IN THE WAITING ROOM DURING YOUR PROCEDURE. YOUR PROCEDURE WILL BE RESCHEDULED IF YOU DO NOT HAVE A RESPONSIBLE ADULT A responsible adult should remain with you for the next 24 hours. If using [employer], cab or bus youmust still have a responsible adult with you and remain with you for the next 24 hours. The hours of operation are 8:00am until 4:00pm. Please arrive at least 30 minutes before your appointment time. If your appointment is scheduled for 8:00 am please arrive 1 hr early (7:00 am). Please call M-F 7:00am-6:00pm for any pre-procedural questions. After hours, please call to speak to the [facility] nurse lead electrical controls engineer. If you need to cancel this appointment, please call , at least 48 hours before your appointment time. For additional health or procedure preparation information call the [facility] line at . The [facility] line is open 24 hours a day including weekends and holidays. PLEASE BRING IN YOUR INSURANCE CARD AND MEDICATIONS OR LIST OF CURRENT MEDICATIONS. PLEASE LEAVE JEWELRY AT HOME AND DO NOT WEAR HEAVY FRAGRANCE OR NAIL ARMENIAN WE MAKE EVERY ATTEMPT TO MAINTAIN OUR SCHEDULE; HOWEVER, IT IS NOT ALWAYS POSSIBLE. SOME PROCEDURESMAY TAKE LONGER THAN OTHERS AND OUR CASES ARE SCHEDULED TO FOLLOW ONE ANOTHER. WE APOLOGIZE FOR ANYDELAYS. Today the following vaccines were administered: Hepatitis B (Hep B). Vaccines may have different side effects and care recommendations. Please refer to the Vaccine Information Sheet(s) (VIS) providedin your preferred language to learn more about the vaccines that were administered today. If you have any problems or questions, please call the [facility] line at [phone]. documented in this [id number] History of Present illness Narrative* Tanvir Black MD - 05/06/2022 4:11 PM EDT Images from the original note were not included. Hematology & Oncology Clinic Note Reason for Consult: Hemolytic anemia Alcoholic cirrhosis Thrombocytopenia Long-term steroid use Referring Provider: Afua Umanzor MD Chief Complaint Patient presents with AIHA On cellcept Cirrhosis/other liver disease History of Present Illness Will Anderson is a 36 year old male with hx of excessive alcohol use with alcoholic liver cirrhosis, presented to ER in decompensated liver failure. 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 He was discharged home on 1 milligram/kilogram of prednisone which pt stopped prematu rely. He was placed on MMF 1000mg BID. Pt non complaint due to side effect. Here for MDVS And labs. Initial consult visit HPI Per patient, had a hard time with steroid at home. Was unable to sleep and kept him agitated almostall times. He decided to stop prednisone after 7 days And has been doing much better since then. Has not had any alcohol since discharge. To colour a his skin and eyes is slowly coming back to normal. Interval visit 05/06/2022 he currently feels well overall. Still has some nausea and vomiting, about once a day after taking her cellcept.he is complaint with current therapy. Has been sleeping well while off steroid.continues to have swelling of legs which is worse at end of day. Denies CP, SOB, palpitations, dizziness or light- headedness. Denies having any changes in weight, appetite, or energy. No night sweats, fevers,chills, or new lumps. Eating and drinking well. Review of Systems Constitutional: Negative for chills, fever, malaise/fatigue and weight loss. HENT: Negative for congestion, hearing loss, sinus pain and tinnitus. Eyes: Negative for blurred vision and double vision. Jaundice Respiratory: Negative for cough, sputum production, shortness of breath and wheezing. Cardiovascular: Negative for chest pain, palpitations, orthopnea and leg swelling. Gastrointestinal: Negative for abdominal pain, blood in stool, constipation, diarrhea, heartburn, nausea and vomiting. Genitourinary: Negative for dysuria, frequency and urgency. Musculoskeletal: Negative for back pain, falls, joint pain and myalgias. Skin: Negative for rash. Neurological: Negative for dizziness, tingling, tremors, sensory change, focal weakness, seizures, weakness and headaches. Endo/Heme/Allergies: Does not bruise/bleed easily. Psychiatric/Behavioral: Negative for depression, substance abuse and suicidal ideas. The patient isnot nervous/anxious and does not have insomnia. Past Medical, Social, & Family History PAST MEDICAL HISTORY: Past Medical History: Diagnosis Date Closed fracture of angle of jaw (HCC) HLA B27 (HLA B27 positive) 2003 Followed with [facility]um at [facility] Open fracture of other and unspecified part of body of mandible FAMILY HISTORY: No family history on file. SOCIAL HISTORY: Social History Socioeconomic History Marital status: Single CURRENT MEDICATIONS: Current Outpatient Medications Medication Sig Dispense Refill vitamin B-1 (THIAMINE) 100 MG tablet Take 1 Tablet by mouth daily. 90 Tablet 3 Multiple Vitamin (Multi-Vitamins) tablet Take 1 Tablet by mouth daily. 90 Tablet 3 lactulose 20 g/30 mL SOLN oral solution Take 30 mL by mouth 2 times daily. 450 mL 3 folic acid 1 MG tablet Take 1 Tablet by mouth daily. 90 Tablet 3 [START ON 05/08/2022] sulfamethoxazole-trimethoprim 800-160 MG (BACTRIM DS) 800- 160 MG per tablet Take 1 tablet by mouth every Thursday, , and Thursday. 30 Tablet 5 mycophenolate (CELLCEPT) 500 MG tablet Take 1 Tablet by mouth 2 times daily. 120 Tablet 3 ondansetron (ZOFRAN-ODT) 4 MG disintegrating tablet Take 1 Tablet by mouth every 12 hours as neededfor Nausea. Place 1 tablet under tongue as needed for nausea. 30 Tablet 2 esomeprazole (NEXIUM) 40 MG capsule Take 1 Capsule by mouth daily (30 minutes before breakfast). 28Capsule 1 No current facility-administered medications for this encounter. ALLERGIES: Amoxacillin [amoxicillin] Objective Vitals: 05/06/22 1003 BP: 137/70 Pulse: 75 Resp: 16 Temp: 98.4 F (36.9 C) SpO2: 100% Physical Exam Constitutional: General: He is not in acute distress. HENT: Head: Normocephalic and atraumatic. Mouth/Throat: Pharynx: No oropharyngeal exudate. Eyes: General: No scleral icterus. Pupils: Pupils are equal, round, and reactive to light. Comments: Jaundiced Neck: Thyroid: No thyromegaly. Cardiovascular: Rate and Rhythm: Normal rate and regular rhythm. Heart sounds: Normal heart sounds. No murmur heard. No friction rub. Pulmonary: Effort: Pulmonary effort is normal. No respiratory distress. Breath sounds: Normal breath sounds. No wheezing. Chest: Chest wall: No tenderness. Abdominal: General: Bowel sounds are normal. There is no distension. Palpations: Abdomen is soft. There is no mass. Musculoskeletal: General: No tenderness. Normal range of motion. Cervical back: Normal range of motion and neck supple. Lymphadenopathy: Cervical: No cervical adenopathy. Skin: General: Skin is warm and dry. Coloration: Skin is not jaundiced. Findings: No erythema or rash. Comments: Darkening of skin color Neurological: Mental Status: He is alert and oriented to person, place, and time. Cranial Nerves: No cranial nerve deficit. Gait: Gait is intact. Psychiatric: Mood and Affect: Mood and affect normal. Cognition and Memory: Memory normal. Judgment: Judgment normal. LAST LAB RESULTS: CBC (Last 5 results in the past 365 days) WBC RBC Hgb Hct MCV RDW Plt 05/06/22 1039 4.2 3.21 11.5 32.5 101 16.8 90 03/13/22 1159 4.0 2.81 9.9 28.4 101 16.2 114 02/11/22 1115 4.9 2.69 10.0 29.1 108 17.1 81 01/17/22 0618 9.5 2.09 8.0 23.3 111 23.6 96 01/16/22 0503 9.2 1.92 7.4 21.6 112 23.7 94 Basic Metabolic Panel (Last 5 results in the past 3 years) Na K Cl CO2 Gap Glu BUN Cr Ca 05/06/22 1039 137 3.6 105 25 11 79 3 0.58 Comment: Grossly icteric; may falsely decrease creatinine 8.9 03/13/22 1159 135 3.6 103 25 11 119 3 0.51 Comment: Grossly icteric; may falsely decrease creatinine 8.2 02/11/22 1115 134 3.3 103 24 10 105 7 0.49 Comment: Grossly icteric; may falsely decrease creatinine 8.2 01/17/22 0709 131 3.8 99 23 13 84 8 0.42 Comment: Grossly icteric; may falsely decrease creatinine 8.2 01/16/22 0503 132 3.7 98 24 14 102 9 0.42 Comment: Grossly icteric; may falsely decrease creatinine 8.3 LFT's (last 3 years, up to 5 values) (Last 5 results in the past 3 years) T Prot Albumin D Bili T Bili Alk Phos ALT AST 05/06/22 1039 6.7 3.0 1.50 8.3 373 47 87 03/13/22 1159 6.2 2.6 1.20 5.6 278 33 68 02/11/22 1115 6.2 2.8 1.70 7.7 226 77 88 01/17/22 0709 6.7 2.8 2.40 12.6 Comment: Elevated bilirubin may falsely lower creatinine 133 75 94 01/16/22 0503 6.3 2.7 2.30 12.7 Comment: Elevated bilirubin may falsely lower creatinine 124 69 93 IMAGING: Reviewed and updated in Oncology History, as above. 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 -patient to be started on MMF with bactrim prophylaxis which was Dose decreased to 500mg BID. Thereis still evidence of hemolysis per labs review but great improvement in counts. RTC 3 month for MDVS and labs. Standing labs ordered. Bilateral limb swelling Liver vs heart issues. No ascites on exam. Echo WNL, not cardiac related. Referred to liver clinic Compression stockings advised Decrease salt Macrocytosis-improve. Due to chronic alcohol use. Patient strongly encouraged to quit. Last drink was 01/05/2022 Chronic etoh abuse-no longer drinking.Last drink was 01/05/2022 -last alcohol use was prior to admission -Patient strongly encouraged to stay off -encouraged thiamine and folate Liver cirrhosis Due to chronic alcohol use Pt now sober, does not plan to take up etoh again after his near experience needing ICU stay. Referred to hepatology More than 50% spent in performing the following complex tasks- reviewing notes on epic, ordering labs and reviewing results, obtaining history, performing physical exam, counseling and educating patient, documentation, independently interpreting results and discussing them with patient, ordering med s/tests/procedures and coordinating care. After visit, pt was given the opportunity to ask questions and all questions were answered to pt's satisfaction. Patient agrees with plan as highlighted above and knows when to call for concerning symptoms. Problem List Items Addressed This Visit Gastroenterology Alcoholic cirrhosis of liver without ascites (HCC) Relevant Medications lactulose 20 g/30 mL SOLN oral solution vitamin B-1 (THIAMINE) 100 MG tablet Other Relevant Orders LIVER SERVICE REQUEST Other Hemolytic anemia (HCC) - Primary Relevant Medications sulfamethoxazole-trimethoprim 800-160 MG (BACTRIM DS) 800-160 MG per tablet (Start on 05/08/2022) folic acid 1 MG tablet Multiple Vitamin (Multi-Vitamins) tablet Other Relevant Orders COMPLETE BLOOD COUNT W/DIFF (Completed) BASIC METABOLIC PANEL (Completed) HEPATIC FUNCTION PANEL (Completed) URIC ACID (Completed) LDH (Completed) HAPTOGLOBIN (Completed) Other Visit Diagnoses Nausea and vomiting, intractability of vomiting not specified, unspecified vomiting type Future Appointments Date Time Provider Department Center 08/14[facility]2022 11:30 AM [facility] 12[facility]00 [facility] 08/14/2022 1:00 PM Maria C Faustin APRN-SUPERVISOR [employer] [facility] Tanvir Ella Parrarachel Black MD Hematology/Oncology 05/06/22 4:11 PM * Sally Chavez - 05/06/2022 10:03 AM EDT Patient was identified by name and date of . Sally Chavez Body Mass Index is 26.78. Body Surface Area is 1.89 square meters according to the formula of Eli and Eli. Patient at risk for falls:No Falls Risk protocol implemented: No Blood pressure 137/70, pulse 75, temperature 98.4 F (36.9 C), resp. rate 16, height 5' 7 (1.702 m), weight 171 lb (77.6 kg), SpO2 100 %. Sally Chavez documented in this [id number] History of Present illness Narrative* Leslie Canela RN - 05/06/2022 11:29 AM EDT Patient was identified by name and date of . Leslie Canela RN Patient at risk for falls:Yes Falls Risk protocol implemented: No Patient arrived to clinic for blood test following MD visit. Blood obtained via venipuncture from L[facility] using 23G 3/4 in butterfly needle, sent to lab, patient tolerated well. Patient verbalized followup instructions, to waiting room to await results. Leslie Canela RN documented in this [id number] History of Present illness Narrative* Rosita Le RN - 03/13/2022 12:29 PM EDT Patient was identified by name and date of . 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 Blood obtained via venipuncture from [facility] [id number] 3/4in butterfly needle. Blood specimen sent to lab. Pt tolerated procedure well. Pt verbalized follow up instructions and discharged home in stable condition. Rosita Le RN documented in this [id number] History of Present illness Narrative* Tanvir Black MD - 03/13/2022 11:45 AM EDT Images from the original note were not included. Hematology & Oncology Clinic Note Reason for Consult: Hemolytic anemia Alcoholic cirrhosis Thrombocytopenia Long-term steroid use Referring Provider: Afua Umanzor MD Chief Complaint Patient presents with Monitoring/follow-up Fatigue nausea and vomiting History of Present Illness Will Anderson is a 36 year old male with hx of excessive alcohol use with alcoholic liver cirrhosis, presented to ER in decompensated liver failure. 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 He was discharged home on 1 milligram/kilogram of prednisone which pt stopped prematu rely. He was placed on MMF 1000mg BID. Pt non complaint due to side effect. Here for MDVS And labs. Initial consult visit HPI Per patient, had a hard time with steroid at home. Was unable to sleep and kept him agitated almostall times. He decided to stop prednisone after 7 days And has been doing much better since then. Has not had any alcohol since discharge. To colour a his skin and eyes is slowly coming back to normal. Interval visit 03/13/2022 he currently feels well overall.complaisnof fatigue more than usual since starting new med. Also has some nausea and vomiting, about once a day. Never had this until the new med. He recently has beendoing just half the dose. Complains of swelling of legs. Denies increased salt in his diet. Denies CP, SOB, palpitations, dizziness or light-headedness. Denies having any changes in weight, appetite, or energy. No night sweats, fevers, chills, or new lumps. Eating and drinking well. Review of Systems Constitutional: Negative for chills, fever, malaise/fatigue and weight loss. HENT: Negative for congestion, hearing loss, sinus pain and tinnitus. Eyes: Negative for blurred vision and double vision. Jaundice Respiratory: Negative for cough, sputum production, shortness of breath and wheezing. Cardiovascular: Negative for chest pain, palpitations, orthopnea and leg swelling. Gastrointestinal: Negative for abdominal pain, blood in stool, constipation, diarrhea, heartburn, nausea and vomiting. Genitourinary: Negative for dysuria, frequency and urgency. Musculoskeletal: Negative for back pain, falls, joint pain and myalgias. Skin: Negative for rash. Neurological: Negative for dizziness, tingling, tremors, sensory change, focal weakness, seizures, weakness and headaches. Endo/Heme/Allergies: Does not bruise/bleed easily. Psychiatric/Behavioral: Negative for depression, substance abuse and suicidal ideas. The patient isnot nervous/anxious and does not have insomnia. Past Medical, Social, & Family History PAST MEDICAL HISTORY: Past Medical History: Diagnosis Date Closed fracture of angle of jaw (HCC) HLA B27 (HLA B27 positive) 2003 Followed with Rheum at [facility] Open fracture of other and unspecified part of body of mandible FAMILY HISTORY: No family history on file. SOCIAL HISTORY: Social History Socioeconomic History Marital status: Single CURRENT MEDICATIONS: Current Outpatient Medications Medication Sig Dispense Refill mycophenolate (CELLCEPT) 500 MG tablet Take 1 Tablet by mouth 2 times daily. 120 Tablet 3 ondansetron (ZOFRAN-ODT) 4 MG disintegrating tablet Take 1 Tablet by mouth every 12 hours [address] Nausea. Place 1 tablet under tongue as needed for nausea. 30 Tablet 2 sulfamethoxazole-trimethoprim 800-160 MG (BACTRIM DS) 800-160 MG per tablet Take 1 tablet by mouth every Thursday, , and Thursday. 30 Tablet 1 predniSONE (DELTASONE) 10 MG tablet Take 70mg daily for 14 days (until 01/21/22), and then 60mg daily until seen by hematology. 200 Tablet 2 esomeprazole (NEXIUM) 40 MG capsule Take 1 Capsule by mouth daily (30 minutes before breakfast). 28Capsule 1 diclofenac (VOLTAREN) 1 % GEL topical gel Apply 2 g topically 4 times daily. 50 g 0 folic acid 1 MG tablet Take 1 Tablet by mouth daily. 30 Tablet 3 vitamin B-1 (THIAMINE) 100 MG tablet Take 1 Tablet by mouth daily. 30 Tablet 3 Multiple Vitamin (Multi-Vitamins) tablet Take 1 Tablet by mouth daily. 30 Tablet 3 lactulose 20 g/30 mL SOLN oral solution Take 30 mL by mouth 2 times daily. 450 mL 3 chlorhexidine (PERIDEX) 0.12 % solution Take by mouth. Take one capful of solution and place on provided syringe and rinse open area inside of mouth twice a day. 1 bottle 3 No current facility-administered medications for this encounter. ALLERGIES: Amoxacillin [amoxicillin] Objective Vitals: 03/13/22 1139 BP: 137/69 Pulse: 85 Resp: 14 Temp: 98.5 F (36.9 C) SpO2: 100% Physical Exam Constitutional: General: He is not in acute distress. HENT: Head: Normocephalic and atraumatic. Mouth/Throat: Pharynx: No oropharyngeal exudate. Eyes: General: No scleral icterus. Pupils: Pupils are equal, round, and reactive to light. Comments: Jaundiced Neck: Thyroid: No thyromegaly. Cardiovascular: Rate and Rhythm: Normal rate and regular rhythm. Heart sounds: Normal heart sounds. No murmur heard. No friction rub. Pulmonary: Effort: Pulmonary effort is normal. No respiratory distress. Breath sounds: Normal breath sounds. No wheezing. Chest: Chest wall: No tenderness. Abdominal: General: Bowel sounds are normal. There is no distension. Palpations: Abdomen is soft. There is no mass. Musculoskeletal: General: No tenderness. Normal range of motion. Cervical back: Normal range of motion and neck supple. Lymphadenopathy: Cervical: No cervical adenopathy. Skin: General: Skin is warm and dry. Coloration: Skin is not jaundiced. Findings: No erythema or rash. Comments: Darkening of skin color Neurological: Mental Status: He is alert and oriented to person, place, and time. Cranial Nerves: No cranial nerve deficit. Gait: Gait is intact. Psychiatric: Mood and Affect: Mood and affect normal. Cognition and Memory: Memory normal. Judgment: Judgment normal. LAST LAB RESULTS: CBC (Last 5 results in the past 365 days) WBC RBC Hgb Hct MCV RDW Plt 03/13/22 1159 4.0 2.81 9.9 28.4 101 16.2 114 02/11/22 1115 4.9 2.69 10.0 29.1 108 17.1 81 01/17/22 0618 9.5 2.09 8.0 23.3 111 23.6 96 01/16/22 0503 9.2 1.92 7.4 21.6 112 23.7 94 01/15/22 0327 8.9 1.88 7.3 21.1 113 24.4 74 Basic Metabolic Panel (Last 5 results in the past 3 years) Na K Cl CO2 Gap Glu BUN Cr Ca 03/13/22 1159 135 3.6 103 25 11 119 3 0.51 Comment: Grossly icteric; may falsely decrease creatinine 8.2 02/11/22 1115 134 3.3 103 24 10 105 7 0.49 Comment: Grossly icteric; may falsely decrease creatinine 8.2 01/17/22 0709 131 3.8 99 23 13 84 8 0.42 Comment: Grossly icteric; may falsely decrease creatinine 8.2 01/16/22 0503 132 3.7 98 24 14 102 9 0.42 Comment: Grossly icteric; may falsely decrease creatinine 8.3 01/15/22 0327 132 3.5 97 25 14 112 8 0.42 Comment: Grossly icteric; may falsely decrease creatinine 7.9 LFT's (last 3 years, up to 5 values) (Last 5 results in the past 3 years) T Prot Albumin D Bili T Bili Alk Phos ALT AST 03/13/22 1159 6.2 2.6 1.20 5.6 278 33 68 02/11/22 1115 6.2 2.8 1.70 7.7 226 77 88 01/17/22 0709 6.7 2.8 2.40 12.6 Comment: Elevated bilirubin may falsely lower creatinine 133 75 94 01/16/22 0503 6.3 2.7 2.30 12.7 Comment: Elevated bilirubin may falsely lower creatinine 124 69 93 01/15/22 0327 6.5 2.6 2.10 10.8 Comment: Elevated bilirubin may falsely lower creatinine 182 65 104 IMAGING: Reviewed and updated in Oncology History, as above. 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 -patient to be started on MMF with bactrim prophylaxis. Pt with some side effects. Dose decreased to 500mg BID. There is still evidence of hemolysis per labs review. Discussed this with pt and importance of compliance with meds. Hopefully he will comply with this new lower dose. -Pt initially thought of transferring care to oncologist closer to his home in [facility]. Patientto call back with name of banking services officer and fax number.will keep care here with us for now. RTC 1 month for MDVS and labs Bilateral limb swelling Liver vs heart issues Echo ordered. No ascites on exam. Pt following with liver clinic Compression stockings ordered Macrocytosis-improve. Due to chronic alcohol use. Patient strongly encouraged to quit. Last drink was 01/05/2022 Chronic etoh abuse -last alcohol use was prior to admission -Patient strongly encouraged to stay off -encouraged thiamine and folate Last drink was 01/05/2022 Liver cirrhosis Due to chronic alcohol use Pt now sober, does not plan to take up etoh again after his near experience needing ICU stay. More than 50% spent in performing the following complex tasks- reviewing notes on epic, ordering labs and reviewing results, obtaining history, performing physical exam, counseling and educating patient, documentation, independently interpreting results and discussing them with patient, ordering med s/tests/procedures and coordinating care. After visit, pt was given the opportunity to ask questions and all questions were answered to pt's satisfaction. Patient agrees with plan as highlighted above and knows when to call for concerning symptoms. Problem List Items Addressed This Visit Other Hemolytic anemia (HCC) - Primary Relevant Medications mycophenolate (CELLCEPT) 500 MG tablet Other Relevant Orders COMPLETE BLOOD COUNT W/DIFF BASIC METABOLIC PANEL HEPATIC FUNCTION PANEL URIC ACID LDH HAPTOGLOBIN Other Visit Diagnoses Bilateral swelling of feet and ankles Relevant Orders ECHOCARDIOGRAM, ADULT SERVICE REQUEST DME COMPRESSION GARMENT Nausea and vomiting, intractability of vomiting not specified, unspecified vomiting type Relevant Medications mycophenolate (CELLCEPT) 500 MG tablet ondansetron (ZOFRAN-ODT) 4 MG disintegrating tablet Future Appointments Date Time Provider Department Center 05/06/2022 9:00 AM MAIN CARD TEST-311 Non Inv Card [facility] 05/06/2022 10:30 AM [facility] 05/06/2022 11:00 AM ONC NURSE [facility] Tanvir Black MD Hematology/Oncology 03/13/22 5:20 PM * Jojo Garcia - 03/13/2022 11:41 AM EDT .Patient was identified by name and date of . Jojo Halley .Patient at risk for falls:Yes Falls Risk protocol implemented: No documented in this [id number] Hospital Discharge instructions Patient Education 02/17/2022 16:25:10 Thrombocytopenia Thrombocytopenia Thrombocytopenia is a condition in which you have a low number of platelets in your blood. Platelets are also called thrombocytes. Platelets are tiny cells in the blood. When you bleed, they clump together at the cut or injury to stop the bleeding. This is called blood clotting. Not having enough platelets can cause bleeding problems. Some cases of thrombocytopenia are mild while others are more severe. What are the causes? This condition may be caused by: Decreased production of platelets. This may be caused by: ?Aplastic anemia. This is when your bone marrow stops making blood cells. ?Cancer in the bone marrow. ?Certain medicines, including chemotherapy. ?Infection in the bone marrow. ?Drinking a lot of alcohol. Increased destruction of platelets. This may be caused by: ?Certain immune diseases. ?Certain medicines. ?Certain blood clotting disorders. ?Certain inherited disorders. ?Certain bleeding disorders. ?. ?Having an enlarged spleen (hypersplenism). In hypersplenism, the spleen gathers up platelets from circulation. This means that the platelets are not available to help with blood clotting. The spleencan be enlarged because of cirrhosis or other conditions. What are the signs or symptoms? Symptoms of this condition are the result of poor blood clotting. They will vary depending on how low the platelet counts are. Symptoms may include: Abnormal bleeding. Nosebleeds. Heavy menstrual periods. Blood in the urine or stool (feces). A purplish discoloration in the skin (purpura). Bruising. A rash that looks like pinpoint, purplish-red spots (petechiae) on the skin and mucous membranes. How is this diagnosed? This condition may be diagnosed with blood tests and a physical exam. Sometimes, a sample of bone marrow may be removed to look for the original cells (megakaryocytes) that make platelets. Other tests may be needed depending on the cause. How is this treated? Treatment for this condition depends on the cause. Treatment options may include: Treatment of another condition that is causing the low platelet count. Medicines to help protect your platelets from being destroyed. A replacement (transfusion) of platelets to stop or prevent bleeding. Surgery to remove the spleen. Follow these instructions at home: Activity Avoid activities that could cause injury or bruising, and follow instructions about how to prevent falls. Take extra care not to cut yourself when you shave or when you use scissors, needles, knives, and other tools. Take extra care to protect yourself from amezquita when ironing or cooking. General instructions Check your skin and the inside of your mouth for bruising or bleeding as told by your health care provider. Check your spit (sputum), urine, and stool for blood as told by your health care provider. Do not drink alcohol. Take cleu-acz-mxwggyy and prescription medicines only as told by your health care provider. Do not take any medicines that have aspirin or NSAIDs in them. These medicines can thin your blood and cause you to bleed more easily. Tell all your health care providers, including dentists and eye doctors, about your condition. Contact a health care provider if you have: Unexplained bruising. Get help right away if you have: Active bleeding from anywhere on your body. Blood in your sputum, urine, or stool. Summary Thrombocytopenia is a condition in which you have a low number of platelets in your blood. Platelets are needed for blood clotting. Symptoms of this condition are the result of poor blood clotting and may include abnormal bleeding,nosebleeds, and bruising. This condition may be diagnosed with blood tests and a physical exam. Treatment for this condition depends on the cause. This information is not intended to replace advice given to you by your health care provider. Make sure you discuss any questions you have with your health care provider. Document Released: 08/24/2006 Document Revised: 05/26/2019 Document Reviewed: 05/26/2019 [employer] Patient Education 2020 [employer]. 02/17/2022 16:25:10 Cellulitis, Adult Cellulitis, Adult Cellulitis is a skin infection. The infected area is usually warm, red, swollen, and tender. This condition occurs most often in the arms and lower legs. The infection can travel to the muscles, blood, and underlying tissue and become serious. It is very important to get treated for this condition. What are the causes? Cellulitis is caused by bacteria. The bacteria enter through a break in the skin, such as a cut, burn, insect bite, open sore, or crack. What increases the risk? This condition is more likely to occur in people who: Have a weak body defense system (immune system). Have open wounds on the skin, such as cuts, amezquita, bites, and scrapes. Bacteria can enter the body through these open wounds. Are older than 60 years of age. Have diabetes. Have a type of long-lasting (chronic) liver disease (cirrhosis) or kidney disease. Are obese. Have a skin condition such as: ?Itchy rash (eczema). ?Slow movement of blood in the veins (venous stasis). ?Fluid buildup below the skin (edema). Have had radiation therapy. Use IV drugs. What are the signs or symptoms? Symptoms of this condition include: Redness, streaking, or spotting on the skin. Swollen area of the skin. Tenderness or pain when an area of the skin is touched. Warm skin. A fever. Chills. Blisters. How is this diagnosed? This condition is diagnosed based on a medical history and physical exam. You may also have tests, including: Blood tests. Imaging tests. How is this treated? Treatment for this condition may include: Medicines, such as antibiotic medicines or medicines to treat allergies (antihistamines). Supportive care, such as rest and application of cold or warm cloths (compresses) to the skin. Hospital care, if the condition is severe. The infection usually starts to get better within 1 2 days of treatment. Follow these instructions at home: Medicines Take etsg-hjg-giigsmy and prescription medicines only as told by your health care provider. If you were prescribed an antibiotic medicine, take it as told by your health care provider. Do notstop taking the antibiotic even if you start to feel better. General instructions Drink enough fluid to keep your urine pale yellow. Do not touch or rub the infected area. Raise (elevate) the infected area above the level of your heart while you are sitting or lying down. Apply warm or cold compresses to the affected area as told by your health care provider. Keep all follow-up visits as told by your health care provider. This is important. These visits letyour health care provider make sure a more serious infection is not developing. Contact a health care provider if: You have a fever. Your symptoms do not begin to improve within 1 2 days of starting treatment. Your bone or joint underneath the infected area becomes painful after the skin has healed. Your infection returns in the same area or another area. You notice a swollen bump in the infected area. You develop new symptoms. You have a general ill feeling (malaise) with muscle aches and pains. Get help right away if: Your symptoms get worse. You feel very sleepy. You develop vomiting or diarrhea that persists. You notice red streaks coming from the infected area. Your red area gets larger or turns dark in color. These symptoms may represent a serious problem that is an emergency. Do not wait to see if the symptoms will go away. Get medical help right away. Call your local emergency services (911 in the [place] Do not drive yourself to the hospital. Summary Cellulitis is a skin infection. This condition occurs most often in the arms and lower legs. Treatment for this condition may include medicines, such as antibiotic medicines or antihistamines. Take djqy-joz-pgrpolc and prescription medicines only as told by your health care provider. If you were prescribed an antibiotic medicine, do not stop taking the antibiotic even if you start to feel better. Contact a health care provider if your symptoms do not begin to improve within 1 2 days of startingtreatment or your symptoms get worse. Keep all follow-up visits as told by your health care provider. This is important. These visits letyour health care provider make sure that a more serious infection is not developing. This information is not intended to replace advice given to you by your health care provider. Make sure you discuss any questions you have with your health care provider. Document Released: 06/03/2006 Document Revised: 01/13/2019 Document Reviewed: 01/13/2019 [employer] Patient Education 2020 [employer]. 02/17/2022 16:25:10 Hypokalemia Hypokalemia Hypokalemia means that the amount of potassium in the blood is lower than normal. Potassium is a chemical (electrolyte) that helps regulate the amount of fluid in the body. It also stimulates muscle tightening (contraction) and helps nerves work properly. Normally, most of the body's potassium is inside cells, and only a very small amount is in the blood. Because the amount in the blood is so small, minor changes to potassium levels in the blood can be life-threatening. What are the causes? This condition may be caused by: Antibiotic medicine. Diarrhea or vomiting. Taking too much of a medicine that helps you have a bowel movement (laxative)can cause diarrhea and lead to hypokalemia. Chronic kidney disease (CKD). Medicines that help the body get rid of excess fluid (diuretics). Eating disorders, such as bulimia. Low magnesium levels in the body. Sweating a lot. What are the signs or symptoms? Symptoms of this condition include: Weakness. Constipation. Fatigue. Muscle cramps. Mental confusion. Skipped heartbeats or irregular heartbeat (palpitations). Tingling or numbness. How is this diagnosed? This condition is diagnosed with a blood test. How is this treated? This condition may be treated by: Taking potassium supplements by mouth. Adjusting the medicines that you take. Eating more foods that contain a lot of potassium. If your potassium level is very low, you may need to get potassium through an IV and be monitored in the hospital. Follow these instructions at home: Take ehog-nwv-wcqoddp and prescription medicines only as told by your health care provider. This includes vitamins and supplements. Eat a healthy diet. A healthy diet includes fresh fruits and vegetables, whole grains, healthy fats, and lean proteins. If instructed, eat more foods that contain a lot of potassium. This includes: ?Nuts, such as peanuts and pistachios. ?Seeds, such as sunflower seeds and pumpkin seeds. ?Peas, lentils, and gerardo beans. ?Whole grain and bran cereals and breads. ?Fresh fruits and vegetables, such as apricots, avocado, bananas, cantaloupe, kiwi, oranges, tomatoes, asparagus, and potatoes. ?[place] juice. ?Tomato juice. ?Red meats. ?Yogurt. Keep all follow-up visits as told by your health care provider. This is important. Contact a health care provider if you: Have weakness that gets worse. Feel your heart pounding or racing. Vomit. Have diarrhea. Have diabetes (diabetes mellitus) and you have trouble keeping your blood sugar (glucose) in your target range. Get help right away if you: Have chest pain. Have shortness of breath. Have vomiting or diarrhea that lasts for more than 2 days. Faint. Summary Hypokalemia means that the amount of potassium in the blood is lower than normal. This condition is diagnosed with a blood test. Hypokalemia may be treated by taking potassium supplements, adjusting the medicines that you take, or eating more foods that are high in potassium. If your potassium level is very low, you may need to get potassium through an IV and be monitored in the hospital. This information is not intended to replace advice given to you by your health care provider. Make sure you discuss any questions you have with your health care provider. Document Released: 08/24/2006 Document Revised: 04/06/2019 Document Reviewed: 04/06/2019 [employer] Patient Education 2020 [employer]. 02/17/2022 16:25:10 Peripheral Edema Peripheral Edema Peripheral edema is swelling that is caused by a buildup of fluid. Peripheral edema most often affects the lower legs, ankles, and feet. It can also develop in the arms, hands, and face. The area of the body that has peripheral edema will look swollen. It may also feel heavy or warm. Your clothes may start to feel tight. Pressing on the area may make a temporary dent in your skin. You may not be able to move your swollen arm or leg as much as usual. There are many causes of peripheral edema. It can happen because of a complication of other conditions such as congestive heart failure, kidney disease, or a problem with your blood circulation. It also can be a side effect of certain medicines or because of an infection. It often happens to women d uring . Sometimes, the cause is not known. Follow these instructions at home: Managing pain, stiffness, and swelling Raise (elevate) your legs while you are sitting or lying down. Move around often to prevent stiffness and to lessen swelling. Do not sit or stand for long periods of time. Wear support stockings as told by your health care provider. Medicines Take insf-kfs-orlumfw and prescription medicines only as told by your health care provider. Your health care provider may prescribe medicine to help your body get rid of excess water (diuretic). General instructions Pay attention to any changes in your symptoms. Follow instructions from your health care provider about limiting salt (sodium) in your diet. Sometimes, eating less salt may reduce swelling. Moisturize skin daily to help prevent skin from cracking and draining. Keep all follow-up visits as told by your health care provider. This is important. Contact a health care provider if you have: A fever. Edema that starts suddenly or is getting worse, especially if you are or have a medical condition. Swelling in only one leg. Increased swelling, redness, or pain in one or both of your legs. Drainage or sores at the area where you have edema. Get help right away if you: Develop shortness of breath, especially when you are lying down. Have pain in your chest or abdomen. Feel weak. Feel faint. Summary Peripheral edema is swelling that is caused by a buildup of fluid. Peripheral edema most often affects the lower legs, ankles, and feet. Move around often to prevent stiffness and to lessen swelling. Do not sit or stand for long periodsof time. Pay attention to any changes in your symptoms. Contact a health care provider if you have edema that starts suddenly or is getting worse, especially if you are or have a medical condition. Get help right away if you develop shortness of breath, especially when lying down. This information is not intended to replace advice given to you by your health care provider. Make sure you discuss any questions you have with your health care provider. Document Released: 10/01/2005 Document Revised: 05/18/2019 Document Reviewed: 05/18/2019 [employer] Patient Education 2020 [employer]. Follow Up Care 02/17/2022 12:28:34 With:Milagros Lofton Address:Unknown When:02/20/2022 15:52:54 Comments:Return to the emergency room if your pain gets worse, fever, swelling gets worse or any new symptoms With:Colby Link Address: [address] [place] [address]- Business (1) When:Within 3 Day(s) [facility]06-13-2022 Evaluation + Plan noteExtracted from: Title:ED Note Author:Puja Howell, Christi Field te:02/17/22 1. Pedal edema (R60.0: Local ized edema) 2. Cellulitis of scrotum (N49.2: Inflammatory disorders of scrotum) 3. Thrombocytopenia (D69.6: Thrombocytopenia, unspecified) 4. Hypokalemia (E87.6: Hypokalemia) Orders: clindamycin, 300 mg = 2 cap(s), Oral, QID, # 56 cap(s), Refills(s) 0, Pharmacy: [facility], 170.2, cm, 02/17/22 12:34:00 EDT, Height/Length Dosing, 78, kg, 02/17/22 12:34:00 EDT, Weight Dosing potassium chloride, 40 mEq = 2 tab(s), Tab-ER, Oral, Once, Stop date 02/17/22 15:49:00 EDT, STAT, Start date 02/17/22 15:49:00 EDT, 02/17/22 15:49:00 EDT Sodium Chloride 0.9% intravenous solution 1,000 mL, 1,000 mL, IV, 20 mL/hr, STAT, Start date 02/17/22 12:51:00 EDT, 50 hour(s), Total volume (mL): 1,000, 78 kg, 1.92, m2 Automated Diff B-Type Natriuretic Peptide Basic Metabolic Panel Blood Culture Charcoal Blood Culture Charcoal CBC w/ Auto Diff eGFR Hepatic Function Panel Lactic Acid Lipase Level UA With Cult Reflex US Scrotum (Contents) XR Chest Single View Diagnostic Tests Pending * Blood Culture Charcoal 02/17/22 * Blood Culture Charcoal 02/17/22 [facility]06-07-2022 Telephone encounter Note* Telephone Encounter - Kulwinder Dozier, Henry - 02/11/2022 1:58 PM EDT Chemotherapy Education Note Will Anderson is a 36 year old male recently diagnosed with hemolytic anemia. Pharmacist was consulted to educate patient on MMF (cellcept) . Medication List Accurate as of February 11, 2022 1:58 PM. If you have any questions, ask your nurse or doctor. CONTINUE taking these medications chlorhexidine 0.12 % oral solution; Commonly known as: Peridex; Take by mouth. Take one capful of solution and place on provided syringe and rinse open area inside of mouth twice a day. diclofenac 1 % Gel topical gel; Commonly known as: VOLTAREN; Apply 2 g topically 4 times daily. esomeprazole 40 MG capsule; Commonly known as: NEXIUM; Take 1 Capsule by mouth daily (30 minutes before breakfast). folic acid 1 MG tablet; Take 1 Tablet by mouth daily. lactulose 20 g/30 mL Soln oral solution; Take 30 mL by mouth 2 times daily. Multi-Vitamins tablet; Take 1 Tablet by mouth daily. mycophenolate 500 MG tablet; Commonly known as: CELLCEPT; Take 2 tablets by mouth 2 times daily. predniSONE 10 MG tablet; Commonly known as: DELTASONE; Take 70mg daily for 14 days (until 01/21/22), and then 60mg daily until seen by hematology. sulfamethoxazole-trimethoprim 800-160 MG 800-160 MG per tablet; Commonly known as: BACTRIM DS; Take 1 tablet by mouth every Thursday, , and Thursday.; Start taking on: February 13, 2022 vitamin B-1 100 MG tablet; Commonly known as: THIAMINE; Take 1 Tablet by mouth daily. Hospital Outpatient Visit on 02/11/2022 Component Date Value Ref Range Status Glucose 02/11/2022 105 68 - 110 mg/dL Final Sodium 02/11/2022 134 (A) 135 - 148 mmol/L Final Potassium 02/11/2022 3.3 3.3 - 5.3 mmol/L Final Carbon Dioxide 02/11/2022 24 21 - 30 mmol/L Final Chloride 02/11/2022 103 97 - 111 mmol/L Final Blood Urea Nitrogen 02/11/2022 7 (A) 8 - 22 mg/dL Final Creatinine 02/11/2022 0.49 (A) 0.80 - 1.30 mg/dL Final Calcium 02/11/2022 8.2 (A) 8.4 - 10.4 mg/dL Final Anion Gap 02/11/2022 10 10 - 20 Final Estimated GFR (CKD-EPI) 02/11/2022 136 >=60 mL/min/1.73sqm Final Albumin 02/11/2022 2.8 (A) 3.4 - 5.1 g/dL Final Bilirubin, Direct 02/11/2022 1.70 (A) 0.10 - 0.30 mg/dL Final Bilirubin, Total 02/11/2022 7.7 (A) 0.1 - 1.5 mg/dL Final Alkaline Phosphatase 02/11/2022 226 (A) 40 - 200 IU/L Final ALT (SGPT) 02/11/2022 77 (A) 7 - 40 IU/L Final AST (SGOT) 02/11/2022 88 (A) 7 - 40 IU/L Final Protein, Total 02/11/2022 6.2 6.2 - 8.3 g/dL Final WBC 02/11/2022 4.9 4.5 - 11.5 K/uL Final RBC 02/11/2022 2.69 (A) 4.50 - 5.90 M/uL Final Hemoglobin 02/11/2022 10.0 (A) 13.9 - 16.3 g/dL Final Hematocrit 02/11/2022 29.1 (A) 41.0 - 53.0 % Final MCV 02/11/2022 108 (A) 80 - 100 fL Final MCH 02/11/2022 37.3 (A) 26.0 - 34.0 pg Final MCHC 02/11/2022 34.5 32.0 - 35.9 g/dL Final Platelet 02/11/2022 81 (A) 150 - 400 K/uL Final RDW-CV 02/11/2022 17.1 (A) 11.5 - 14.5 % Final MPV 02/11/2022 7.2 (A) 7.5 - 11.2 fL Final Neutrophils 02/11/2022 58.0 31.0 - 76.0 % Final Lymphocytes 02/11/2022 22.0 (A) 24.0 - 44.0 % Final Monocytes 02/11/2022 11.0 2.0 - 11.0 % Final Eosinophil 02/11/2022 3.0 0.1 - 4.0 % Final Bands 02/11/2022 5 <=10 % Final Metamyelocytes 02/11/2022 1 (A) <0 % Final Total Cells Counted 02/11/2022 100 Final Nucleated RBCs 02/11/2022 1 K/uL Final nRBCs/100 Cells 02/11/2022 1 % Final Anisocytosis 02/11/2022 Slight Final Polychromasia 02/11/2022 Slight Final Neutrophil # 02/11/2022 2.84 1.50 - 8.00 K/uL Final Lymphocytes # 02/11/2022 1.08 1.00 - 4.80 K/uL Final Monocyte # 02/11/2022 0.54 0.20 - 1.00 K/uL Final Eosinophil # 02/11/2022 0.15 0.00 - 0.70 K/uL Final Metamyelocyte # 02/11/2022 0.05 (A) <0.01 K/uL Final Bands # 02/11/2022 0.25 (A) <0.01 K/uL Final Hospital Outpatient Visit on 02/11/2022 Component Date Value Ref Range Status Retic % 02/11/2022 3.0 (A) 0.5 - 1.5 % Final Retic # 02/11/2022 0.08 0.03 - 0.08 M/uL Final ImmRetFract 02/11/2022 0.45 0.30 - 0.50 Final LD 02/11/2022 321 (A) 50 - 220 IU/L Final Haptoglobin 02/11/2022 <15 (A) 36 - 220 mg/dL Final Medication list was reviewed and evaluated for potential drug interactions, baseline labs were reviewed including renal, hepatic, and other drug and disease specific values as well as potential toxicity risks for monitoring. Chemotherapy Education I had the pleasure of speaking with Will. Administration, handling and storage requirements were discussed with the patient. I Discussed all premedications and supportive care medications with the patient. The patient was informed of the following AE: -- N/V/D/C, DAVIS, fatigue -- Patient currently dealing with constipation. Dr. Black recommended miralax. I instructed the patient to take 1 capful once daily to start. Patient verbalized understanding. Adequate time was given to ask and address any questions and concerns. My Phone number was provided to the patient and she was encouraged to call with any questions/concerns. Will follow up with the patient in 2 weeks to assess adherence and tolerance Total time spent with patient: 30 minutes Abhijeet MichelleD, PharmD. Oncology Specialty Pharmacist [id number] Date: 02/11/22 [id number] Miscellaneous Notes* Telephone Encounter - Kulwinder Dozier PharmD - 02/11/2022 1:58 PM EDT Chemotherapy Education Note Will Anderson is a 36 year old male recently diagnosed with hemolytic anemia. Pharmacist was consulted to educate patient on MMF (cellcept) . Medication List Accurate as of February 11, 2022 1:58 PM. If you have any questions, ask your nurse or doctor. CONTINUE taking these medications chlorhexidine 0.12 % oral solution; Commonly known as: Peridex; Take by mouth. Take one capful of solution and place on provided syringe and rinse open area inside of mouth twice a day. diclofenac 1 % Gel topical gel; Commonly known as: VOLTAREN; Apply 2 g topically 4 times daily. esomeprazole 40 MG capsule; Commonly known as: NEXIUM; Take 1 Capsule by mouth daily (30 minutes before breakfast). folic acid 1 MG tablet; Take 1 Tablet by mouth daily. lactulose 20 g/30 mL Soln oral solution; Take 30 mL by mouth 2 times daily. Multi-Vitamins tablet; Take 1 Tablet by mouth daily. mycophenolate 500 MG tablet; Commonly known as: CELLCEPT; Take 2 tablets by mouth 2 times daily. predniSONE 10 MG tablet; Commonly known as: DELTASONE; Take 70mg daily for 14 days (until 01/21/22), and then 60mg daily until seen by hematology. sulfamethoxazole-trimethoprim 800-160 MG 800-160 MG per tablet; Commonly known as: BACTRIM DS; Take 1 tablet by mouth every Thursday, , and Thursday.; Start taking on: February 13, 2022 vitamin B-1 100 MG tablet; Commonly known as: THIAMINE; Take 1 Tablet by mouth daily. Hospital Outpatient Visit on 02/11/2022 Component Date Value Ref Range Status Glucose 02/11/2022 105 68 - 110 mg/dL Final Sodium 02/11/2022 134 (A) 135 - 148 mmol/L Final Potassium 02/11/2022 3.3 3.3 - 5.3 mmol/L Final Carbon Dioxide 02/11/2022 24 21 - 30 mmol/L Final Chloride 02/11/2022 103 97 - 111 mmol/L Final Blood Urea Nitrogen 02/11/2022 7 (A) 8 - 22 mg/dL Final Creatinine 02/11/2022 0.49 (A) 0.80 - 1.30 mg/dL Final Calcium 02/11/2022 8.2 (A) 8.4 - 10.4 mg/dL Final Anion Gap 02/11/2022 10 10 - 20 Final Estimated GFR (CKD-EPI) 02/11/2022 136 >=60 mL/min/1.73sqm Final Albumin 02/11/2022 2.8 (A) 3.4 - 5.1 g/dL Final Bilirubin, Direct 02/11/2022 1.70 (A) 0.10 - 0.30 mg/dL Final Bilirubin, Total 02/11/2022 7.7 (A) 0.1 - 1.5 mg/dL Final Alkaline Phosphatase 02/11/2022 226 (A) 40 - 200 IU/L Final ALT (SGPT) 02/11/2022 77 (A) 7 - 40 IU/L Final AST (SGOT) 02/11/2022 88 (A) 7 - 40 IU/L Final Protein, Total 02/11/2022 6.2 6.2 - 8.3 g/dL Final WBC 02/11/2022 4.9 4.5 - 11.5 K/uL Final RBC 02/11/2022 2.69 (A) 4.50 - 5.90 M/uL Final Hemoglobin 02/11/2022 10.0 (A) 13.9 - 16.3 g/dL Final Hematocrit 02/11/2022 29.1 (A) 41.0 - 53.0 % Final MCV 02/11/2022 108 (A) 80 - 100 fL Final MCH 02/11/2022 37.3 (A) 26.0 - 34.0 pg Final MCHC 02/11/2022 34.5 32.0 - 35.9 g/dL Final Platelet 02/11/2022 81 (A) 150 - 400 K/uL Final RDW-CV 02/11/2022 17.1 (A) 11.5 - 14.5 % Final MPV 02/11/2022 7.2 (A) 7.5 - 11.2 fL Final Neutrophils 02/11/2022 58.0 31.0 - 76.0 % Final Lymphocytes 02/11/2022 22.0 (A) 24.0 - 44.0 % Final Monocytes 02/11/2022 11.0 2.0 - 11.0 % Final Eosinophil 02/11/2022 3.0 0.1 - 4.0 % Final Bands 02/11/2022 5 <=10 % Final Metamyelocytes 02/11/2022 1 (A) <0 % Final Total Cells Counted 02/11/2022 100 Final Nucleated RBCs 02/11/2022 1 K/uL Final nRBCs/100 Cells 02/11/2022 1 % Final Anisocytosis 02/11/2022 Slight Final Polychromasia 02/11/2022 Slight Final Neutrophil # 02/11/2022 2.84 1.50 - 8.00 K/uL Final Lymphocytes # 02/11/2022 1.08 1.00 - 4.80 K/uL Final Monocyte # 02/11/2022 0.54 0.20 - 1.00 K/uL Final Eosinophil # 02/11/2022 0.15 0.00 - 0.70 K/uL Final Metamyelocyte # 02/11/2022 0.05 (A) <0.01 K/uL Final Bands # 02/11/2022 0.25 (A) <0.01 K/uL Final Hospital Outpatient Visit on 02/11/2022 Component Date Value Ref Range Status Retic % 02/11/2022 3.0 (A) 0.5 - 1.5 % Final Retic # 02/11/2022 0.08 0.03 - 0.08 M/uL Final ImmRetFract 02/11/2022 0.45 0.30 - 0.50 Final LD 02/11/2022 321 (A) 50 - 220 IU/L Final Haptoglobin 02/11/2022 <15 (A) 36 - 220 mg/dL Final Medication list was reviewed and evaluated for potential drug interactions, baseline labs were reviewed including renal, hepatic, and other drug and disease specific values as well as potential toxicity risks for monitoring. Chemotherapy Education I had the pleasure of speaking with Will. Administration, handling and storage requirements were discussed with the patient. I Discussed all premedications and supportive care medications with the patient. The patient was informed of the following AE: -- N/V/D/C, DAVIS, fatigue -- Patient currently dealing with constipation. Dr. Black recommended miralax. I instructed the patient to take 1 capful once daily to start. Patient verbalized understanding. Adequate time was given to ask and address any questions and concerns. My Phone number was provided to the patient and she was encouraged to call with any questions/concerns. Will follow up with the patient in 2 weeks to assess adherence and tolerance Total time spent with patient: 30 minutes Kulwinder Dozier PharmD, PharmD. Oncology Specialty Pharmacist [id number] Date: 02/11/22 * Telephone Encounter - Kulwinder Dozier PharmD - 02/11/2022 12:39 PM EDT Images from the original note were not included. [facility] Referral [facility] received a prescription for MMF (Cellcept) for this patient on 02/11/2022. [facility] has been contacted to initiate a Prior Authorization for this medication. This is an immunomodulatory agent Patient Information: Will Anderson is a 36 year old male [id number] [facility] [address] Insurance on file: [employer] ID: [id number] BIN: [id number] PCN: -- Group: [id number] Specialty Medication Medication and dosing: mycophenolate (CELLCEPT) 500 MG tablet- Take 2 tablets by mouth 2 times daily. 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 Black) Incomplete Note Planned duration of therapy: see Oncology treatment plan in Episodes tab for details Goals of therapy: palliative Potential barriers to treatment: insurance coverage, indirect and direct costs Prior treatments: NA Current therapy: MMF Current Outpatient Medications: mycophenolate (CELLCEPT) 500 MG tablet, Take 2 tablets by mouth 2 times daily., Disp: 120 Tablet, Rfl: 3 [START ON 02/13/2022] sulfamethoxazole-trimethoprim 800-160 MG (BACTRIM DS) 800- 160 MG per tablet, Take 1 tablet by mouth every Thursday, , and Thursday., Disp: 30 Tablet, Rfl: 1 predniSONE (DELTASONE) 10 MG tablet, Take 70mg daily for 14 days (until 01/21/22), and then 60mg daily until seen by hematology., Disp: 200 Tablet, Rfl: 2 esomeprazole (NEXIUM) 40 MG capsule, Take 1 Capsule by mouth daily (30 minutes before breakfast)., Disp: 28 Capsule, Rfl: 1 diclofenac (VOLTAREN) 1 % GEL topical gel, Apply 2 g topically 4 times daily., Disp: 50 g, Rfl: 0 folic acid 1 MG tablet, Take 1 Tablet by mouth daily., Disp: 30 Tablet, Rfl: 3 vitamin B-1 (THIAMINE) 100 MG tablet, Take 1 Tablet by mouth daily., Disp: 30 Tablet, Rfl: 3 Multiple Vitamin (Multi-Vitamins) tablet, Take 1 Tablet by mouth daily., Disp: 30 Tablet, Rfl: 3 lactulose 20 g/30 mL SOLN oral solution, Take 30 mL by mouth 2 times daily., Disp: 450 mL, Rfl: 3 chlorhexidine (PERIDEX) 0.12 % solution, Take by mouth. Take one capful of solution and place on provided syringe and rinse open area inside of mouth twice a day. , Disp: 1 bottle, Rfl: 3 No current facility-administered medications for this visit. Clinically Significant Drug-Drug interactions: N Patient Active Problem List: Open fracture of angle of jaw (HCC) [S02.650B] Hematoma [T14.8XXA] Alcoholic hepatitis without ascites [K70.10] Coagulation defect (HCC) [D68.9] Alcoholic cirrhosis of liver without ascites (HCC) [K70.30] Hemolytic anemia (HCC) [D58.9] Thrombocytopenia (HCC) [D69.6] Jaundice [R17] Alcohol abuse [F10.10] Allergies: Allergies Allergen Reactions Amoxacillin [Amoxicillin] Pertinent Labs: CBC (Last 5 results in the past 365 days) WBC RBC Hgb Hct MCV RDW Plt 02/11/22 1115 4.9 [P] 2.69 [P] 10.0 [P] 29.1 [P] 108 [P] 17.1 [P] 01/17/22 0618 9.5 2.09 8.0 23.3 111 23.6 96 01/16/22 0503 9.2 1.92 7.4 21.6 112 23.7 94 01/15/22 0327 8.9 1.88 7.3 21.1 113 24.4 74 01/14/22 0355 7.3 1.91 7.3 21.3 112 24.1 65 [P] - Preliminary Result Basic Metabolic Panel (Last 5 results in the past 365 days) Na K Cl CO2 Gap Glu BUN Cr Ca Mg PO4 02/11/22 1115 134 3.3 103 24 10 105 7 0.49 Comment: Grossly icteric; may falsely decrease creatinine 8.2 01/17/22 0709 131 3.8 99 23 13 84 8 0.42 Comment: Grossly icteric; may falsely decrease creatinine 8.2 01/16/22 0503 132 3.7 98 24 14 102 9 0.42 Comment: Grossly icteric; may falsely decrease creatinine 8.3 01/15/22 0327 132 3.5 97 25 14 112 8 0.42 Comment: Grossly icteric; may falsely decrease creatinine 7.9 01/14/22 0355 136 3.4 101 27 11 136 6 0.44 Comment: Grossly icteric; may falsely decrease creatinine 8.2 [facility] Reference Range & Units 01/17/22 07:09 02/11/22 11:15 Albumin 3.4 - 5.1 g/dL 2.8 (L) 2.8 (L) Protein, Total 6.2 - 8.3 g/dL 6.7 6.2 Bilirubin, Direct 0.10 - 0.30 mg/dL 2.40 (H) 1.70 (H) Bilirubin, Total 0.1 - 1.5 mg/dL 12.6 (H) [1] 7.7 (H) Alkaline Phosphatase 40 - 200 IU/L 133 226 (H) ALT (SGPT) 7 - 40 IU/L 75 (H) 77 (H) AST (SGOT) 7 - 40 IU/L 94 (H) 88 (H) (L): Data is abnormally low (H): Data is abnormally high [1] Elevated bilirubin may falsely lower creatinine Latest Reference Range & Units 01/17/22 06:18 01/17/22 07:09 02/11/22 11:15 Haptoglobin 36 - 220 mg/dL <15 (L) <15 (L) LD 50 - 220 IU/L 514 (H) 321 (H) (L): Data is abnormally low (H): Data is abnormally high Latest Reference Range & Units 01/17/22 06:18 02/11/22 11:15 Retic % 0.5 - 1.5 % 6.5 (H) 3.0 (H) Immature Retic Fract 0.30 - 0.50 0.61 (H) 0.45 Retic # 0.03 - 0.08 M/uL 0.14 (H) 0.08 (H): Data is abnormally high Creatinine clearance from Cockroft-Gault: 193 ml/min using IBW 66.1 kg (actual weight 75.7 kg ignored) GFR from MDRD: greater than 60 age 36 yr, cr=0.49 on 02/11/2022, race White Estimated body surface area is 1.87 meters squared as calculated from the following: Height as of an earlier encounter on 02/11/22: 5' 7 (1.702 m). Weight as of an earlier encounter on 02/11/22: 167 lb (75.8 kg). Recommended Lab Monitoring: Complete blood count (weekly for first month, twice monthly during months 2 and 3, then monthly thereafter through the first year); renal and liver function Recommended AE Monitoring: signs and symptoms of bacterial, fungal, protozoal, new or reactivated viral (including reactivation of HBV or HCV), or opportunistic infections; neurological symptoms (eg,hemiparesis, confusion, cognitive deficiencies, ataxia) suggestive of progressive multifocal leukoen cephalopathy; in patients with hepatitis B or hepatitis C, monitor for signs of viral reactivation;monitor for signs/symptoms (eg, fever, arthralgias, arthritis, muscle pain, proinflammatory markers) suggestive of acute inflammatory syndrome; test (sensitivity of ?25 milliunits/mL; immedi ately prior to initiation and 8 to 10 days later in patients who may become , followed by repeat tests during therapy); monitor skin (for lesions suspicious of skin cancer); monitor for signsof lymphoma; monitor for signs of pure red cell aplasia or autoimmune hemolytic anemia Assessment: medication(s) are clinically appropriate PLAN: - Pharmacy will update on progress in this encounter as updates are available. - Patient will be educated by pharmacist once medication is approved. Questions for [facility] may be directed to [phone] option 3. Thank you for the referral, Kulwinder Dozier PharmD Oncology Specialty Pharmacist [phone] [id number] documented in this [id number] Telephone encounter Note* Telephone Encounter - Kulwinder Dozier PharmD - 02/11/2022 12:39 PM EDT Images from the original note were not included. [facility] Referral [facility] received a prescription for MMF (Cellcept) for this patient on 02/11/2022. [facility] has been contacted to initiate a Prior Authorization for this medication. This is an immunomodulatory agent Patient Information: Will Anderson is a 36 year old male [id number] [facility] [address] Insurance on file: [employer] ID: [id number] BIN: [id number] PCN: -- Group: [id number] Specialty Medication Medication and dosing: mycophenolate (CELLCEPT) 500 MG tablet- Take 2 tablets by mouth 2 times daily. 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 Black) Incomplete Note Planned duration of therapy: see Oncology treatment plan in Episodes tab for details Goals of therapy: palliative Potential barriers to treatment: insurance coverage, indirect and direct costs Prior treatments: NA Current therapy: MMF Current Outpatient Medications: mycophenolate (CELLCEPT) 500 MG tablet, Take 2 tablets by mouth 2 times daily., Disp: 120 Tablet, Rfl: 3 [START ON 02/13/2022] sulfamethoxazole-trimethoprim 800-160 MG (BACTRIM DS) 800- 160 MG per tablet, Take 1 tablet by mouth every Thursday, , and Thursday., Disp: 30 Tablet, Rfl: 1 predniSONE (DELTASONE) 10 MG tablet, Take 70mg daily for 14 days (until 01/21/22), and then 60mg daily until seen by hematology., Disp: 200 Tablet, Rfl: 2 esomeprazole (NEXIUM) 40 MG capsule, Take 1 Capsule by mouth daily (30 minutes before breakfast)., Disp: 28 Capsule, Rfl: 1 diclofenac (VOLTAREN) 1 % GEL topical gel, Apply 2 g topically 4 times daily., Disp: 50 g, Rfl: 0 folic acid 1 MG tablet, Take 1 Tablet by mouth daily., Disp: 30 Tablet, Rfl: 3 vitamin B-1 (THIAMINE) 100 MG tablet, Take 1 Tablet by mouth daily., Disp: 30 Tablet, Rfl: 3 Multiple Vitamin (Multi-Vitamins) tablet, Take 1 Tablet by mouth daily., Disp: 30 Tablet, Rfl: 3 lactulose 20 g/30 mL SOLN oral solution, Take 30 mL by mouth 2 times daily., Disp: 450 mL, Rfl: 3 chlorhexidine (PERIDEX) 0.12 % solution, Take by mouth. Take one capful of solution and place on provided syringe and rinse open area inside of mouth twice a day. , Disp: 1 bottle, Rfl: 3 No current facility-administered medications for this visit. Clinically Significant Drug-Drug interactions: N Patient Active Problem List: Open fracture of angle of jaw (HCC) [S02.650B] Hematoma [T14.8XXA] Alcoholic hepatitis without ascites [K70.10] Coagulation defect (HCC) [D68.9] Alcoholic cirrhosis of liver without ascites (HCC) [K70.30] Hemolytic anemia (HCC) [D58.9] Thrombocytopenia (HCC) [D69.6] Jaundice [R17] Alcohol abuse [F10.10] Allergies: Allergies Allergen Reactions Amoxacillin [Amoxicillin] Pertinent Labs: CBC (Last 5 results in the past 365 days) WBC RBC Hgb Hct MCV RDW Plt 02/11/22 1115 4.9 [P] 2.69 [P] 10.0 [P] 29.1 [P] 108 [P] 17.1 [P] 01/17/22 0618 9.5 2.09 8.0 23.3 111 23.6 96 01/16/22 0503 9.2 1.92 7.4 21.6 112 23.7 94 01/15/22 0327 8.9 1.88 7.3 21.1 113 24.4 74 01/14/22 0355 7.3 1.91 7.3 21.3 112 24.1 65 [P] - Preliminary Result Basic Metabolic Panel (Last 5 results in the past 365 days) Na K Cl CO2 Gap Glu BUN Cr Ca Mg PO4 02/11/22 1115 134 3.3 103 24 10 105 7 0.49 Comment: Grossly icteric; may falsely decrease creatinine 8.2 01/17/22 0709 131 3.8 99 23 13 84 8 0.42 Comment: Grossly icteric; may falsely decrease creatinine 8.2 01/16/22 0503 132 3.7 98 24 14 102 9 0.42 Comment: Grossly icteric; may falsely decrease creatinine 8.3 01/15/22 0327 132 3.5 97 25 14 112 8 0.42 Comment: Grossly icteric; may falsely decrease creatinine 7.9 01/14/22 0355 136 3.4 101 27 11 136 6 0.44 Comment: Grossly icteric; may falsely decrease creatinine 8.2 Latest Reference Range & Units 01/17/22 07:09 02/11/22 11:15 Albumin 3.4 - 5.1 g/dL 2.8 (L) 2.8 (L) Protein, Total 6.2 - 8.3 g/dL 6.7 6.2 Bilirubin, Direct 0.10 - 0.30 mg/dL 2.40 (H) 1.70 (H) Bilirubin, Total 0.1 - 1.5 mg/dL 12.6 (H) [1] 7.7 (H) Alkaline Phosphatase 40 - 200 IU/L 133 226 (H) ALT (SGPT) 7 - 40 IU/L 75 (H) 77 (H) AST (SGOT) 7 - 40 IU/L 94 (H) 88 (H) (L): Data is abnormally low (H): Data is abnormally high [1] Elevated bilirubin may falsely lower creatinine Latest Reference Range & Units 01/17/22 06:18 01/17/22 07:09 02/11/22 11:15 Haptoglobin 36 - 220 mg/dL <15 (L) <15 (L) LD 50 - 220 IU/L 514 (H) 321 (H) (L): Data is abnormally low (H): Data is abnormally high Latest Reference Range & Units 01/17/22 06:18 02/11/22 11:15 Retic % 0.5 - 1.5 % 6.5 (H) 3.0 (H) Immature Retic Fract 0.30 - 0.50 0.61 (H) 0.45 Retic # 0.03 - 0.08 M/uL 0.14 (H) 0.08 (H): Data is abnormally high Creatinine clearance from Cockroft-Gault: 193 ml/min using IBW 66.1 kg (actual weight 75.7 kg ignored) GFR from MDRD: greater than 60 age 36 yr, cr=0.49 on 02/11/2022, race White Estimated body surface area is 1.87 meters squared as calculated from the following: Height as of an earlier encounter on 02/11/22: 5' 7 (1.702 m). Weight as of an earlier encounter on 02/11/22: 167 lb (75.8 kg). Recommended Lab Monitoring: Complete blood count (weekly for first month, twice monthly during months 2 and 3, then monthly thereafter through the first year); renal and liver function Recommended AE Monitoring: signs and symptoms of bacterial, fungal, protozoal, new or reactivated viral (including reactivation of HBV or HCV), or opportunistic infections; neurological symptoms (eg,hemiparesis, confusion, cognitive deficiencies, ataxia) suggestive of progressive multifocal leukoen cephalopathy; in patients with hepatitis B or hepatitis C, monitor for signs of viral reactivation;monitor for signs/symptoms (eg, fever, arthralgias, arthritis, muscle pain, proinflammatory markers) suggestive of acute inflammatory syndrome; test (sensitivity of ?25 milliunits/mL; immedi ately prior to initiation and 8 to 10 days later in patients who may become , followed by repeat tests during therapy); monitor skin (for lesions suspicious of skin cancer); monitor for signsof lymphoma; monitor for signs of pure red cell aplasia or autoimmune hemolytic anemia Assessment: medication(s) are clinically appropriate PLAN: - Pharmacy will update on progress in this encounter as updates are available. - Patient will be educated by pharmacist once medication is approved. Questions for [facility] may be directed to [phone] option 3. Thank you for the referral, Kulwinder Dozier PharmD Oncology Specialty Pharmacist [phone] [id number] History of Present illness Narrative* Cyn Hopper RN - 02/11/2022 11:45 AM EDT Patient was identified by name and date of . 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 Blood obtained via venipuncture from RAC using 23G 3/4in butterfly needle. Blood specimen sent to lab. Pt tolerated procedure well, dressing applied. AVS provided and reviewed. Pt verbalized follow up instructions and discharged home in stable condition. Cyn Hopper RN documented in this [id number] Miscellaneous Notes* Telephone Encounter - Liseth Santana PharmD - 01/21/2022 12:04 PM EDT Images from the original note were not included. Prior Authorization Team - Prior Auth Denied Medication and dosing: Esomeprazole Reason for Denial: See full Denial in media tab: The pharmacy has contacted the patient to advise on denial status and that a message has been sent to provider. Tried to call patient, no answer and mailbox full so could not leave a voicemail. No PCP listed.If patient calls to check on the status of this request, he needs to discuss alternative highlighted above with his PCP.. To request an appeal: 1. Provide clinical reasons this medication is needed for the patient 2. Route this request to P [id number] (Pharmacy Prior Authorization Pool) Patient advised to follow up with provider's office if they have any further questions or if no answer after 3 business days. Providers office is to contact patient to advise of medication changes/next steps documented in this [id number] Miscellaneous Notes* Care Plan Note - Rosa Mensah RN - 01/17/2022 4:54 PM EDT Problem: Routine Care: Goal: Patient care will be managed and maintained throughout hospital stay per unit specific routine care procedure 01/17/2022 1654 by Rosa Mensah RN Outcome: Completed 01/17/2022 1654 by Rosa Mensah RN Outcome: Adequate for Discharge 01/17/2022 1626 by Rosa Mensah RN Outcome: Progressing 01/17/2022 1625 by Rosa Mensah RN Outcome: Progressing Problem: Discharge Planning: Goal: Discharge needs of the adult patient will be met 01/17/2022 1654 by Rosa Mensah RN Outcome: Completed 01/17/2022 1654 by Rosa Mensah RN Outcome: Adequate for Discharge 01/17/2022 1626 by Rosa Mensah RN Outcome: Progressing 01/17/2022 1625 by Rosa Mensah RN Outcome: Progressing Problem: Safety: Goal: Free from injury during hospitalization 01/17/2022 1654 by Rosa Mensah RN Outcome: Completed 01/17/2022 1654 by Rosa Mensah RN Outcome: Adequate for Discharge 01/17/2022 1626 by Rosa Mensah RN Outcome: Progressing 01/17/2022 1625 by Rosa Mensah RN Outcome: Progressing Problem: Acute Pain: Goal: Ability to identify pain intensity on a pain scale and rate it consistently will be achieved and maintained 01/17/2022 1654 by Rosa Mensah RN Outcome: Completed 01/17/2022 1654 by Rsoa Mensah RN Outcome: Adequate for Discharge 01/17/2022 1626 by Rosa Mensah RN Outcome: Progressing 01/17/2022 1625 by Rosa Mensah RN Outcome: Progressing Goal: Acceptable level of pain which allows the patient to achieve functional outcome goals 01/17/2022 1654 by Rosa Mensah RN Outcome: Completed 01/17/2022 1654 by Rosa Mensah RN Outcome: Adequate for Discharge 01/17/2022 1626 by Rosa Mensah RN Outcome: Progressing 01/17/2022 1625 by Rosa Mensah RN Outcome: Progressing Problem: Impaired Skin Integrity: Goal: Skin integrity will improve and/or be maintained 01/17/2022 1654 by Rosa Mensah RN Outcome: Completed 01/17/2022 1654 by Rosa Mensah RN Outcome: Adequate for Discharge 01/17/2022 1626 by Rosa Mensah RN Outcome: Progressing 01/17/2022 1625 by Rosa Mensah RN Outcome: Progressing Problem: VTE Prophylaxis: Goal: Will be free of DVT 01/17/2022 1654 by Rosa Mensah RN Outcome: Completed 01/17/2022 1654 by Rosa Mensah RN Outcome: Adequate for Discharge 01/17/2022 1626 by Rosa Mensah RN Outcome: Progressing 01/17/2022 1625 by Rosa Mensah RN Outcome: Progressing Problem: Alcohol Withdrawal: Goal: Free from complications of withdrawal 01/17/2022 1654 by Rosa Mensah RN Outcome: Completed 01/17/2022 1654 by Rosa Mensah RN Outcome: Adequate for Discharge 01/17/2022 1626 by Rosa Mensah RN Outcome: Progressing 01/17/2022 1625 by Rosa Mensah RN Outcome: Progressing * Care Plan Note - Rosa Mensah RN - 01/17/2022 4:54 PM EDT Problem: Routine Care: Goal: Patient care will be managed and maintained throughout hospital stay per unit specific routine care procedure 01/17/2022 1654 by Rosa Mensah RN Outcome: Adequate for Discharge 01/17/2022 1626 by Rosa Mensah RN Outcome: Progressing 01/17/2022 1625 by Rosa Mensah RN Outcome: Progressing Problem: Discharge Planning: Goal: Discharge needs of the adult patient will be met 01/17/2022 1654 by Rosa Mensah RN Outcome: Adequate for Discharge 01/17/2022 1626 by Rosa Mensah RN Outcome: Progressing 01/17/2022 1625 by Rosa Mensah RN Outcome: Progressing Problem: Safety: Goal: Free from injury during hospitalization 01/17/2022 1654 by Rosa Mensah RN Outcome: Adequate for Discharge 01/17/2022 1626 by Rosa Mensah RN Outcome: Progressing 01/17/2022 1625 by Rosa Mensah RN Outcome: Progressing Problem: Acute Pain: Goal: Ability to identify pain intensity on a pain scale and rate it consistently will be achieved and maintained 01/17/2022 1654 by Rosa Mensah RN Outcome: Adequate for Discharge 01/17/2022 1626 by Rosa Mensah RN Outcome: Progressing 01/17/2022 1625 by Rosa Mensah RN Outcome: Progressing Goal: Acceptable level of pain which allows the patient to achieve functional outcome goals 01/17/2022 1654 by Rosa Mensah RN Outcome: Adequate for Discharge 01/17/2022 1626 by Rosa Mensah RN Outcome: Progressing 01/17/2022 1625 by Rosa Mensah RN Outcome: Progressing Problem: Impaired Skin Integrity: Goal: Skin integrity will improve and/or be maintained 01/17/2022 1654 by Rosa Mensah RN Outcome: Adequate for Discharge 01/17/2022 1626 by Rosa Mensah RN Outcome: Progressing 01/17/2022 1625 by Rosa Mensah RN Outcome: Progressing Problem: VTE Prophylaxis: Goal: Will be free of DVT 01/17/2022 1654 by Rosa Mensah RN Outcome: Adequate for Discharge 01/17/2022 1626 by Rosa Mensah RN Outcome: Progressing 01/17/2022 1625 by Rosa Mensah RN Outcome: Progressing Problem: Alcohol Withdrawal: Goal: Free from complications of withdrawal 01/17/2022 1654 by Rosa Mensah RN Outcome: Adequate for Discharge 01/17/2022 1626 by Rosa Mensah RN Outcome: Progressing 01/17/2022 1625 by Rosa Mensah RN Outcome: Progressing * Care Plan Note - Rosa Mensah RN - 01/17/2022 4:26 PM EDT Problem: Routine Care: Goal: Patient care will be managed and maintained throughout hospital stay per unit specific routine care procedure 01/17/2022 1626 by Rosa Mensah RN Outcome: Progressing 01/17/2022 1625 by Rosa Mensah RN Outcome: Progressing Problem: Discharge Planning: Goal: Discharge needs of the adult patient will be met 01/17/2022 1626 by Rosa Mensah RN Outcome: Progressing 01/17/2022 1625 by Rosa Mensah RN Outcome: Progressing Problem: Safety: Goal: Free from injury during hospitalization 01/17/2022 1626 by Rosa Mensah RN Outcome: Progressing 01/17/2022 1625 by Rosa Mensah RN Outcome: Progressing Problem: Acute Pain: Goal: Ability to identify pain intensity on a pain scale and rate it consistently will be achieved and maintained 01/17/2022 1626 by Rosa Mensah RN Outcome: Progressing 01/17/2022 1625 by Rosa Mensah RN Outcome: Progressing Goal: Acceptable level of pain which allows the patient to achieve functional outcome goals 01/17/2022 1626 by Rosa Mensah RN Outcome: Progressing 01/17/2022 1625 by Rosa Mensah RN Outcome: Progressing Problem: Impaired Skin Integrity: Goal: Skin integrity will improve and/or be maintained 01/17/2022 1626 by Rosa Mensah RN Outcome: Progressing 01/17/2022 1625 by Rosa Mensah RN Outcome: Progressing Problem: VTE Prophylaxis: Goal: Will be free of DVT 01/17/2022 1626 by Rosa Mensah RN Outcome: Progressing 01/17/2022 1625 by Rosa Mensah RN Outcome: Progressing Problem: Alcohol Withdrawal: Goal: Free from complications of withdrawal 01/17/2022 1626 by Rosa Mensah RN Outcome: Progressing 01/17/2022 1625 by Rosa Mensah RN Outcome: Progressing * Care Plan Note - Rosa Mensah RN - 01/17/2022 4:25 PM EDT Problem: Routine Care: Goal: Patient care will be managed and maintained throughout hospital stay per unit specific routine care procedure Outcome: Progressing Problem: Discharge Planning: Goal: Discharge needs of the adult patient will be met Outcome: Progressing Problem: Safety: Goal: Free from injury during hospitalization Outcome: Progressing Problem: Acute Pain: Goal: Ability to identify pain intensity on a pain scale and rate it consistently will be achieved and maintained Outcome: Progressing Goal: Acceptable level of pain which allows the patient to achieve functional outcome goals Outcome: Progressing Problem: Impaired Skin Integrity: Goal: Skin integrity will improve and/or be maintained Outcome: Progressing Problem: VTE Prophylaxis: Goal: Will be free of DVT Outcome: Progressing Problem: Alcohol Withdrawal: Goal: Free from complications of withdrawal Outcome: Progressing * Care Plan Note - Kristen Gan RN - 01/16/2022 9:26 PM EDT Problem: Routine Care: Goal: Patient care will be managed and maintained throughout hospital stay per unit specific routine care procedure Outcome: Progressing Problem: Discharge Planning: Goal: Discharge needs of the adult patient will be met Outcome: Progressing Problem: Safety: Goal: Free from injury during hospitalization Outcome: Progressing Problem: Acute Pain: Goal: Ability to identify pain intensity on a pain scale and rate it consistently will be achieved and maintained Outcome: Progressing Goal: Acceptable level of pain which allows the patient to achieve functional outcome goals Outcome: Progressing Problem: Impaired Skin Integrity: Goal: Skin integrity will improve and/or be maintained Outcome: Progressing Problem: VTE Prophylaxis: Goal: Will be free of DVT Outcome: Progressing Problem: Alcohol Withdrawal: Goal: Free from complications of withdrawal Outcome: Progressing * Care Plan Note - Ana Salas RN - 01/16/2022 1:47 PM EDT Patient c/o left arm pain. Dr. Umanzor notified. Tramadol given with good pain relief. Patient sleeping at this time. HGB 7.4 HCT 21.6 ALT 69 AST 93 K+ 3.7 K+ 3.7 Na+ 132 skin is jaundiced. Left arm is swollen, good radial pulse. * Multidisciplinary Note - Teddy Maher Rn, RN - 01/15/2022 3:50 PM EDT Full Code NEURO: Restraints: No. Frequent Neurochecks: No. Nursing Issues: None CARDIAC IV access/Lines: Multiple PIVs Lines needing D/C d None AM labs: Yes Infusions: None Infusions needed D/C (off for more than 24 hours): None Nursing Issues: None PULMONARY: Spontaneous Breathing Trial: N/A Advanced Airway: N/A Orders needing discontinue: No Nursing Issues (Vent, Wean, Oxygen) None GI/: Rosales: No. External Catheter: No : Tube feeding: N/A CONSULT: No Diet: Regular Do medications have proper route (OG, PEG, NG, PO): Yes Nursing issues (CVVH, I&O s ) None SKIN: Device management: Wound care per physician orders. Skin breakdown prevention measures per unit protocol. Wound consult: No Nursing issues (specialty bed, new skin concern, skin care orders etc..): N/A MD note in for stage III injury: No PSYCHOSOCIAL: Family meeting: Not indicated at this time Social work or Care management needs: TBD Pain management: PRN medications per physician orders. Nursing concerns: None DISPOSITION: Transfer: Yes Discharge: No Can patient be transferred to lower level of care: Yes Criteria for transfer (stable H&H etc.): Improved withdrawal symptoms Nursing concerns: None OVERNIGHT CONCERNS: None NOTES REGARDING PLAN OF CARE: Continue supportive care MRI of ROSHNI Trx to RNF BARRIERS TO PLAN OF CARE: None DEPUTY MANAGER RN Jessee Callahan RN DAY SHIFT RN Alvaro Maher RN * Transfer Note - Keo Gaona MD - 01/15/2022 9:53 AM EDT TRANSFER NOTE 36M hx EtOH use d/o, HLA-B27 positive who initially presented on 01/07/2021 to OSH with LUE edema, pain, bruising s/p trauma. 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 Progressive swelling. Pt also noticed his skin was yellow x 1 day. While at [facility], patient was HDS, however noted with significant bru ising and edema of LUE. Reportedly, trauma surgery was consulted at [place] and there was initially concern for compartment syndrome and fasciotomy was considered, but ultimately did not occur at the time. The trauma attending Dr. Du recommended orthopedic consultation upon arrival to the [facility] MICU. While at [place] labs significant for indirect hyperbilirubinemia, and acute macrocytic anemia 6.9 requiring 1u pRBC and [address] Abd/Pelvis W/ Contrast showed liver cirrhosis and steatosis without CBD dilation. Received morphine, ceftriaxone, protonix, thiamine. Started on NS for rhabdo. Patient transferred to [facility] for tertiary center care. While in the [facility] MICU, Ortho following - request MR L elbow for assessment of possible complete vspartial L biceps tendon rupture. Corpak placed for nutrition and medications due to encephalopathy.Hematology following, who recommended prednisone 1mg/kg, daily labs and to monitor RBC transfusion protocol given patient currently HDS and suspected autoimmune anemia. US Spleen wnls. Gastroenterology following due to acute alcoholic hepatitis, (MDF 43) and Cirrhosis. Patient with worsening agitation requiring precedex gtt and Clonidine patch. Patient is off precedex and has not required ativan in the past 48 hours. He is also off Tube feeds and tolerating regular day To do: 1. Outpatient GI follow up and ortho follow up 2. Transfuse if HB < 5 or if symptomatic. 3. Lactulose BID and rifaximin 550 mg bid 4. Prednisolone 1mg/kg (treatment for autoimmune hemolytic anemia) and Alcoholic hepatitis. Contacthematology for taper duration 5. Calculate emanuel score on day 7 to confirm steroid dose Keo Gaona MD MPH IM PGY 2 * Care Plan Note - Obdulia Callahan RN - 01/15/2022 1:14 AM EDT Problem: Routine Care: Goal: Patient care will be managed and maintained throughout hospital stay per unit specific routine care procedure Outcome: Progressing Intervention: Implement Routine Care MICU Procedure (continuous) Note: MICU routine care ongoing Problem: Discharge Planning: Goal: Discharge needs of the adult patient will be met Outcome: Progressing Intervention: Collaborate with multidisciplinary team for additional home-going needs (PRN) Note: Family updated ? Transfer to [facility] soon- weaning precidex off Sw/case aide for dc concerns Problem: Safety: Goal: Free from injury during hospitalization Outcome: Progressing Intervention: Assess for risk related to falls using age appropriate scale (continuous) Note: Falls risk assessed and interventions maintained Intervention: Implement seizure precautions (continuous) Note: Seizure precautions maintained Intervention: Initiate purposeful hourly rounding (continuous) Note: Hourly rounding performed Intervention: Use patient double identifiers for all care delivery (continuous) Note: Double id used Problem: Acute Pain: Goal: Ability to identify pain intensity on a pain scale and rate it consistently will be achieved and maintained Outcome: Progressing Intervention: Assess pain routinely using the developmentally appropriate pain scale (continuous) Note: Numeric pain assessment q4 Goal: Acceptable level of pain which allows the patient to achieve functional outcome goals Outcome: Progressing Intervention: Administer medications (per order) Note: Denies pain- no pain meds at this time Intervention: Assist comfortable positioning (PRN) Note: Self positioning prn Problem: Impaired Skin Integrity: Goal: Skin integrity will improve and/or be maintained Outcome: Progressing Intervention: Implement Pressure Ulcer Procedure (continuous) Note: T&P q2 Heels elevated and mepilex in place Problem: VTE Prophylaxis: Goal: Will be free of DVT Outcome: Progressing Intervention: Implement Sequential Compression Device (SCD) Procedure (continuous) Note: Scd's on Intervention: Initiate early ambulation (per order) Note: Early ambulation as able/ PT & OT following Problem: Alcohol Withdrawal: Goal: Free from complications of withdrawal Outcome: Progressing Intervention: Implement the Adult Alcohol Withdrawal Procedure (continuous) Note: Weaning precidex Mental status improved Ciwa assessment q4 Intervention: Implement seizure precautions (continuous) Note: Seizure precautions maintained Problem: Restraint: Goal: Remain safe while in restraints and once discontinued Outcome: Completed * Multidisciplinary Note - Kiley Keane RN - 01/14/2022 2:05 PM EDT Full Code NEURO: Restraints: No. Frequent Neurochecks: No. Nursing Issues: Pt more alert and appropriate, weaning precedex CARDIAC IV access/Lines: 2 PIV AM labs: Yes Infusions: Dexmedetomidine Infusions needed D/C (off for more than 24 hours): none Nursing Issues: PULMONARY: Orders needing discontinue: No Nursing Issues (Vent, Wean, Oxygen) On RA GI/: Rosales: No. External Catheter: No : Tube feeding: Impact Peptide 1.5 CONSULT: Yes Diet: Clear liquid Do medications have proper route (OG, PEG, NG, PO): Yes Nursing issues (CVVH, I&O s ) SKIN: Device management: Wound consult: No Nursing issues (specialty bed, new skin concern, skin care orders etc..): MD note in for stage III injury: No PSYCHOSOCIAL: Family meeting: Parents updated Social work or Care management needs: Pain management: Nursing concerns: DISPOSITION: Transfer: No Discharge: No Can patient be transferred to lower level of care: No Criteria for transfer (stable H&H etc.): Off precedex Nursing concerns: OVERNIGHT CONCERNS: NOTES REGARDING PLAN OF CARE: BARRIERS TO PLAN OF CARE: DEPUTY MANAGER RN: Bharat Callahan DAY SHIFT RN: Meli Keane * 1:1 Interaction - Keo Gaona MD - 01/14/2022 7:42 AM EDT Images from the original note were not included. SECLUSION/RESTRAINTS PROVIDER [id number] EVALUATION NOTE Will Anderson was evaluated on 01/14/22 at 7:30 pm. The attending, Dr. Santana was notified. The patient's immediate situation: Patient became psychomotor agitated and Patient pulling medical devices. The patient's reaction to the intervention(s): Patient failed to respond to verbal redirection. The patient's medical and behavioral condition at this time: Patient is psychmotor agitated. Need to continue restraint/seclusion order: Yes Patient needs restraints due to imminent risk of harm to others * Care Plan Note - Obdulia Callahan RN - 01/14/2022 12:43 AM EDT Problem: Restraint: Goal: Remain safe while in restraints and once discontinued Outcome: Progressing Intervention: Initiate restraints per physician order and follow system policy III-16 (per protocol) Note: See order/ flowsheet Intervention: Advance to safety device or discontinue restraint (per protocol) Note: De-escalate/ dc restraints as mental status improves and pt maintaining medical devices Problem: Routine Care: Goal: Patient care will be managed and maintained throughout hospital stay per unit specific routine care procedure Outcome: Progressing Intervention: Implement Routine Care MICU Procedure (continuous) Note: MICU routine care ongoing Problem: Discharge Planning: Goal: Discharge needs of the adult patient will be met Outcome: Progressing Intervention: Collaborate with multidisciplinary team for additional home-going needs (PRN) Note: Family updates Sw/case aide as needed Problem: Safety: Goal: Free from injury during hospitalization Outcome: Progressing Intervention: Assess for risk related to falls using age appropriate scale (continuous) Note: Falls risk assessed and interventions maintained Intervention: Implement seizure precautions (continuous) Note: Seizure precautions maintained Intervention: Initiate purposeful hourly rounding (continuous) Note: Hourly rounding performed Intervention: Use patient double identifiers for all care delivery (continuous) Note: Double id used Problem: Acute Pain: Goal: Ability to identify pain intensity on a pain scale and rate it consistently will be achieved and maintained Outcome: Progressing Intervention: Assess pain routinely using the developmentally appropriate pain scale (continuous) Note: Numeric pain assessment q4 hrs Goal: Acceptable level of pain which allows the patient to achieve functional outcome goals Outcome: Progressing Intervention: Administer medications (per order) Note: Denies pain/ no pain meds at this time Intervention: Assist comfortable positioning (PRN) Note: T&P q2 and prn Problem: Impaired Skin Integrity: Goal: Skin integrity will improve and/or be maintained Outcome: Progressing Intervention: Implement Pressure Ulcer Procedure (continuous) Note: T&P q2 Heels elevated / mepilex in place Intervention: Implement Incontinence Skin Care Procedure (continuous) Note: FMS in place Ph balanced spray and aloe vesta prn Problem: VTE Prophylaxis: Goal: Will be free of DVT Outcome: Progressing Intervention: Implement Sequential Compression Device (SCD) Procedure (continuous) Note: Scd's on Intervention: Initiate early ambulation (per order) Note: Early ambulation as able Problem: Alcohol Withdrawal: Goal: Free from complications of withdrawal Outcome: Progressing Intervention: Implement the Adult Alcohol Withdrawal Procedure (continuous) Note: See CIWA Precidex drip- weaning as able . See mar Intervention: Implement seizure precautions (continuous) Note: Seizure precautions maintained * Multidisciplinary Note - Erica Graham RN - 01/13/2022 5:44 PM EDT Full Code NEURO: Restraints: Yes. Provider 1:1 note: Yes Frequent Neurochecks: No. Nursing Issues: none CARDIAC IV access/Lines: Peripheral Line(s): Location right wrist, gauge 20's Lines needing D/C d none AM labs: Yes Infusions: Dexmedetomidine Infusions needed D/C (off for more than 24 hours): none Nursing Issues: none PULMONARY: Spontaneous Breathing Trial: No Advanced Airway: N/A Orders needing discontinue: No Nursing Issues (Vent, Wean, Oxygen) none GI/: Rosales: No. External Catheter: Yes: Tube feeding: Peptamen 1.5 CONSULT: Yes Diet: Clear liquid Do medications have proper route (OG, PEG, NG, PO): Yes Nursing issues (CVVH, I&O s ) none SKIN: Device management: PIV's, FMS, External Catheter Wound consult: No Nursing issues (specialty bed, new skin concern, skin care orders etc..): none MD note in for stage III injury: No PSYCHOSOCIAL: Family meeting: None planned at this time Social work or Care management needs: Discharge planning Pain management: PRN and scheduled pain medications, see MAR. Nursing concerns: none DISPOSITION: Transfer: No Discharge: No Can patient be transferred to lower level of care: No Criteria for transfer (stable H&H etc.): Pt not ready for discharge at this time Nursing concerns: none OVERNIGHT CONCERNS: none NOTES REGARDING PLAN OF CARE: none BARRIERS TO PLAN OF CARE: none DEPUTY MANAGER IRENA Unger RN DAY SHIFT IRENA Graham RN * 1:1 Interaction - Hannah Leggett MD - 01/13/2022 4:30 AM EDT Images from the original note were not included. SECLUSION/RESTRAINTS PROVIDER [id number] EVALUATION NOTE Will Anderson was evaluated on 01/13/22 at 0430. The attending, Dr. Santana will be notified. The patient's immediate situation: Patient became psychomotor agitated and Patient pulling medical devices. The patient's reaction to the intervention(s): Patient failed to respond to verbal redirection and Patient did not redirect with verbal cues. The patient's medical and behavioral condition at this time: Patient is psychmotor agitated, Patient has poor impulse control and impaired judgement and Patient in critical condition and requires medical devices. Need to continue restraint/seclusion order: Yes Patient needs restraints due to risk of harm to self Hannah Leggett MD * Care Plan Note - Elizabeth Unger RN - 01/13/2022 12:37 AM EDT Problem: Restraint: Goal: Remain safe while in restraints and once discontinued Outcome: Progressing Note: Restraint order renewed daily. Assessment preformed Q2 hours. Problem: Routine Care: Goal: Patient care will be managed and maintained throughout hospital stay per unit specific routine care procedure Outcome: Progressing Note: Assessments and vital signs preformed per MICU protocol. Problem: Safety: Goal: Free from injury during hospitalization Outcome: Progressing Note: Falls precautions maintained. Two patient identifiers used during the delivery of all patientcare, hr rounding. Problem: Acute Pain: Goal: Ability to identify pain intensity on a pain scale and rate it consistently will be achieved and maintained Outcome: Progressing Note: Appropriate scale used to assess pain. Medications administered as ordered. Problem: VTE Prophylaxis: Goal: Will be free of DVT Outcome: Progressing Note: Prophylactic VTE SCD's on bilat. Problem: Discharge Planning: Goal: Discharge needs of the adult patient will be met Outcome: Not Progressing Note: Education and discharge planning are ongoing throughout patient's hospital stay. Problem: Alcohol Withdrawal: Goal: Free from complications of withdrawal Outcome: Not Progressing Note: CIWAs Q4 preformed per order. PRN medication administered. Problem: Impaired Skin Integrity: Goal: Skin integrity will improve and/or be maintained Outcome: Progressing Note: Skin assessed per protocol. * Multidisciplinary Note - Malina Sen RN - 01/12/2022 10:50 AM EDT Full Code NEURO: Restraints: Yes. Provider 1:1 note: Yes Frequent Neurochecks: No. Nursing Issues: AxOx2-3. Restless. Decreasing restraints as tolerated/able to maintain medical devices CARDIAC IV access/Lines: Peripheral Line(s): Location right arm and left foot, gauge 20 x2 22 x1 Lines needing D/C d None AM labs: Yes Infusions: Dexmedetomidine Infusions needed D/C (off for more than 24 hours): None Nursing Issues: None PULMONARY: Orders needing discontinue: No Nursing Issues (Vent, Wean, Oxygen) : VSS on RA GI/: Rosales: No. External Catheter: Yes: Tube feeding: Peptamen 1.5 CONSULT: Yes Diet: Clear liquid Do medications have proper route (OG, PEG, NG, PO): Yes Nursing issues (CVVH, I&O s ) : None SKIN: Device management: None Wound consult: No Nursing issues (specialty bed, new skin concern, skin care orders etc..): Monitoring restraints. Q2hour turning and repositioning. MD note in for stage III injury: No PSYCHOSOCIAL: Family meeting: None Social work or Care management needs: None Pain management: Will manage as needed Nursing concerns: None DISPOSITION: Transfer: No Discharge: No Can patient be transferred to lower level of care: No Criteria for transfer (stable H&H etc.): Stable Nursing concerns: None OVERNIGHT CONCERNS: None NOTES REGARDING PLAN OF CARE: None BARRIERS TO PLAN OF CARE: None DEPUTY MANAGER RN : Elsa Jenkins RN DAY SHIFT RN : Jessee Sen RN * Care Plan Note - Margoth Jenkins RN - 01/12/2022 1:07 AM EDT Problem: Restraint: Goal: Remain safe while in restraints and once discontinued Outcome: Progressing Note: Restraint order renewed daily. Assessment preformed Q2 hours. Problem: Routine Care: Goal: Patient care will be managed and maintained throughout hospital stay per unit specific routine care procedure Outcome: Progressing Note: Assessments and vital signs preformed per MICU protocol. Problem: Safety: Goal: Free from injury during hospitalization Outcome: Progressing Note: Falls precautions maintained. Two patient identifiers used during the delivery of all patientcare. Problem: Acute Pain: Goal: Ability to identify pain intensity on a pain scale and rate it consistently will be achieved and maintained Outcome: Progressing Note: Appropriate scale used to assess pain. Medications administered as ordered. Problem: VTE Prophylaxis: Goal: Will be free of DVT Outcome: Progressing Note: Prophylactic VTE medication administered as ordered. Problem: Discharge Planning: Goal: Discharge needs of the adult patient will be met Outcome: Not Progressing Note: Education and discharge planning are ongoing throughout patient's hospital stay. Problem: Alcohol Withdrawal: Goal: Free from complications of withdrawal Outcome: Not Progressing Note: CIWAs preformed per order. PRN medication administered. Problem: Impaired Skin Integrity: Goal: Skin integrity will improve and/or be maintained Outcome: Progressing Note: Skin assessed per protocol. * 1:1 Interaction - Hannah Leggett MD - 01/12/2022 12:34 AM EDT Images from the original note were not included. SECLUSION/RESTRAINTS PROVIDER [id number] EVALUATION NOTE Will Anderson was evaluated on 01/12/22 at 0040. The attending, Dr. Santana will be notified. The patient's immediate situation: Patient became psychomotor agitated and Patient pulling medical devices. The patient's reaction to the intervention(s): Patient failed to respond to verbal redirection and Patient did not redirect with verbal cues. The patient's medical and behavioral condition at this time: Patient is psychmotor agitated, Patient has poor impulse control and impaired judgement and Patient in critical condition and requires medical devices. Need to continue restraint/seclusion order: Yes Patient needs restraints due to risk of harm to self Hannah Leggett MD * Multidisciplinary Note - Kasey Childers RN - 01/11/2022 4:52 PM EDT Full Code NEURO: Restraints: Yes. Provider 1:1 note: Yes Frequent Neurochecks: No. Nursing Issues: Frequent CIWA assessments. PRN Lorazepam. CARDIAC IV access/Lines: Multiple PIVs Lines needing D/C d None AM labs: Yes Infusions: Dexmedetomidine and Lactated Ringers Infusions needed D/C (off for more than 24 hours): None Nursing Issues: none PULMONARY: Spontaneous Breathing Trial: N/A Advanced Airway: N/A Orders needing discontinue: No Nursing Issues (Vent, Wean, Oxygen) none GI/: Rosales: No. External Catheter: Yes: Tube feeding: Peptamen 1.5 CONSULT: Yes Diet: Clear liquid Do medications have proper route (OG, PEG, NG, PO): Yes Nursing issues (CVVH, I&O s ) none SKIN: Device management: PIVs, External catheter, FMS Wound consult: No Nursing issues (specialty bed, new skin concern, skin care orders etc..): none note in for stage III injury: No PSYCHOSOCIAL: Family meeting: None scheduled. Social work or Care management needs: Consulted Pain management: PRN acetaminophen Nursing concerns: none DISPOSITION: Transfer: No Discharge: No Can patient be transferred to lower level of care: No Criteria for transfer (stable H&H etc.): Stable H/H and VS. Nursing concerns: none OVERNIGHT CONCERNS: none NOTES REGARDING PLAN OF CARE: none BARRIERS TO PLAN OF CARE: none DEPUTY MANAGER IRENA Canales DAY SHIFT IRENA Childers * 1:1 Interaction - aHnnah Leggett MD - 01/11/2022 1:39 AM EDT Images from the original note were not included. SECLUSION/RESTRAINTS PROVIDER [id number] EVALUATION NOTE Will Anderson was evaluated on 01/11/22 at 0140. The attending, Dr. Santana will be notified. The patient's immediate situation: Patient became psychomotor agitated and Patient pulling medical devices. The patient's reaction to the intervention(s): Patient failed to respond to verbal redirection and Patient did not redirect with verbal cues. The patient's medical and behavioral condition at this time: Patient is psychmotor agitated, Patient has poor impulse control and impaired judgement and Patient in critical condition and requires medical devices. Need to continue restraint/seclusion order: Yes Patient needs restraints due to risk of harm to self Hannah Leggett MD * Multidisciplinary Note - Kasey Childers RN - 01/10/2022 3:17 PM EDT Full Code NEURO: Restraints: Yes. Provider 1:1 note: Yes Frequent Neurochecks: No. Nursing Issues: none CARDIAC IV access/Lines: Multiple PIVs Lines needing D/C d None AM labs: Yes Infusions: Dexmedetomidine and lactated ringers Infusions needed D/C (off for more than 24 hours): None Nursing Issues: none PULMONARY: Spontaneous Breathing Trial: N/A Advanced Airway: N/A Orders needing discontinue: No Nursing Issues (Vent, Wean, Oxygen) Patient remains on RA. GI/: Rosales: No. External Catheter: Yes: Tube feeding: Peptamen 1.5 CONSULT: Yes Diet: Clear liquid Do medications have proper route (OG, PEG, NG, PO): Yes Nursing issues (CVVH, I&O s ) Awaiting ultrasound of kidneys to continue diet. SKIN: Device management: PIVs, Restraints, External catheter Wound consult: No Nursing issues (specialty bed, new skin concern, skin care orders etc..): none MD note in for stage III injury: No PSYCHOSOCIAL: Family meeting: None scheduled Social work or Care management needs: Consulted Pain management: PRN acetaminophen Nursing concerns: none DISPOSITION: Transfer: No Discharge: No Can patient be transferred to lower level of care: No Criteria for transfer (stable H&H etc.): Wean from precedex with stable VS. Nursing concerns: none OVERNIGHT CONCERNS: none NOTES REGARDING PLAN OF CARE: none BARRIERS TO PLAN OF CARE: Patient does not tolerate ability to remain still for MRI. Dr. Antoinette montero. DEPUTY MANAGER IRENA Jameson DAY SHIFT IRENA Childers * 1:1 Interaction - Abhinav De La Vega DO - 01/10/2022 2:31 PM EDT SECLUSION/RESTRAINTS PROVIDER [id number] EVALUATION NOTE Will Anderson was evaluated on 01/10/22 at 1430. The attending, Dr. Marino will be notified. The patient's immediate situation: Patient became psychomotor agitated and Patient pulling medical devices. The patient's reaction to the intervention(s): Patient failed to respond to verbal redirection and Patient did not redirect with verbal cues. The patient's medical and behavioral condition at this time: Patient is psychmotor agitated, Patient has poor impulse control and impaired judgement and Patient in critical condition and requires medical devices. Need to continue restraint/seclusion order: Yes Patient needs restraints due to risk of harm to self Abhinav De La Vega DO * 1:1 Interaction - Graham Scott MD - 01/10/2022 5:08 AM EDT Images from the original note were not included. SECLUSION/RESTRAINTS PROVIDER [id number] EVALUATION NOTE Will Anderson was evaluated on 01/10/22 at 0508. The attending, Dr. Marino was notified. The patient's immediate situation: Patient pulling medical devices. The patient's reaction to the intervention(s): Patient failed to respond to verbal redirection and Patient did not redirect with verbal cues. The patient's medical and behavioral condition at this time: Patient in critical condition and requires medical devices. Need to continue restraint/seclusion order: Yes Patient needs restraints due to risk of harm to self * Care Plan Note - Bang Jameson RN - 01/10/2022 4:42 AM EDT Problem: Restraint: Goal: Remain safe while in restraints and once discontinued Outcome: Progressing Note: Pt still requiring soft limb x4 and a soft waist restraint for safety and to maintain medicaldevices. Ongoing assessment performed by RN. RN will decrease restraints when able. Problem: Routine Care: Goal: Patient care will be managed and maintained throughout hospital stay per unit specific routine care procedure Outcome: Progressing Note: All patient care provided per ICU protocol and procedure. Problem: Safety: Goal: Free from injury during hospitalization Outcome: Progressing Note: Hourly rounding on the patient is performed. Siderails in place and the pt's bed alarm is on. Problem: Acute Pain: Goal: Ability to identify pain intensity on a pain scale and rate it consistently will be achieved and maintained Outcome: Progressing Note: Pt rating pain consistently at a 0/10 on the numeric pain scale. Nonpharm interventions in place to maintain patient comfort. RN will continue to assess the need for further pain measures if necessary. Problem: VTE Prophylaxis: Goal: Will be free of DVT Outcome: Progressing Note: SCD's on patient. Chemical ppx is contraindicated at this time. Problem: Discharge Planning: Goal: Discharge needs of the adult patient will be met Outcome: Progressing Note: Pt is being assessed continuously for discharge planning. Collaborating with all members of the healthcare team in order to make sure that all of the pt's needs are addressed prior to their discharge. Problem: Alcohol Withdrawal: Goal: Free from complications of withdrawal Outcome: Progressing Note: Q4 CIWA assessments performed by RN. No PRN medications administered. Precedex infusion at 1.4mcg/kg and patient remains a RASS of -1. Problem: Impaired Skin Integrity: Goal: Skin integrity will improve and/or be maintained Outcome: Progressing Note: Two nurse skin check done on each tour of duty with the off going RN. Thorough skin assessment is completed in order to ensure there is no compromise in the pt's skin integrity. Skin treatment provided, refer to skin LDA flowsheet. * Blood Attestation - Ivy Chua MD - 01/09/2022 11:53 AM EDT Blood Attestation ATTESTATION OF INFORMED CONSENT FOR BLOOD The transfusion of blood and/or blood components were discussed with the patient and/or legal guest service representative. The risks, benefits and alternatives were reviewed. Questions regarding blood transfusions were answered. The patient /or the patient s legal guest service representative agree with the plan for transfusion of blood and/or blood components. Pt is agitated from experiencing EtOH withdrawal. Spoke with pt's father Rich who provided informedconsent for blood products as above if blood product transfusion is necessary. Rich was also provided with medical update. Ivy Chua MD Internal Medicine PGY-3 * 1:1 Interaction - Ivy Chua MD - 01/09/2022 9:02 AM EDT SECLUSION/RESTRAINTS PROVIDER [id number] EVALUATION NOTE Will Anderson was evaluated on 01/09/22 at 0902. The attending, Dr. Marino will be notified. The patient's immediate situation: Patient pulling medical devices. The patient's reaction to the intervention(s): Patient failed to respond to verbal redirection and Patient did not redirect with verbal cues. The patient's medical and behavioral condition at this time: Patient has poor impulse control and impaired judgement and Patient in critical condition and requires medical devices. Need to continue restraint/seclusion order: Yes Patient needs restraints due to risk of harm to self Ivy Chua MD Internal Medicine PGY-3 * Care Plan Note - Bang Jameson RN - 01/09/2022 6:33 AM EDT Problem: Restraint: Goal: Remain safe while in restraints and once discontinued 01/09/2022 06 by Bang Jameson RN Outcome: Progressing Note: Pt requiring soft limb x4 and a soft waist restraint at this time. Pt became combative towards staff as well as removing necessary medical devices. RN will continue to assess the need of the restraints and the ability to decrease when able. 01/09/2022 06 by Bang Jameson RN Outcome: Progressing Problem: Routine Care: Goal: Patient care will be managed and maintained throughout hospital stay per unit specific routine care procedure 01/09/2022 06 by Bang Jameson RN Outcome: Progressing Note: All patient care provided per ICU protocol and procedure. 01/09/2022628 by Bang Jameson RN Outcome: Progressing Problem: Safety: Goal: Free from injury during hospitalization 01/09/2022629 by Bang Jameson RN Outcome: Progressing Note: Hourly rounding on the patient is performed. Siderails in place and the pt's bed alarm is on. 01/09/2022628 by Bang Jameson RN Outcome: Progressing Problem: Acute Pain: Goal: Ability to identify pain intensity on a pain scale and rate it consistently will be achieved and maintained 01/09/2022629 by Bang Jameson RN Outcome: Progressing Note: No active issues with pain at this time. RN will continue to assess the need for PRN medications. Nonpharm interventions in place in order to promote comfort. 01/09/2022628 by Bang Jameson RN Outcome: Progressing Problem: VTE Prophylaxis: Goal: Will be free of DVT 01/09/2022629 by Bang Jameson RN Outcome: Progressing Note: Chemical ppx contraindicated at this time. 01/09/2022628 by Bang Jameson RN Outcome: Progressing Problem: Discharge Planning: Goal: Discharge needs of the adult patient will be met 01/09/2022629 by Bang Jameson RN Outcome: Progressing Note: Pt is being assessed continuously for discharge planning. Collaborating with all members of the healthcare team in order to make sure that all of the pt's needs are addressed prior to their discharge. 01/09/2022628 by Bang Jameson RN Outcome: Progressing Problem: Alcohol Withdrawal: Goal: Free from complications of withdrawal 01/09/2022629 by Bang Jameson RN Outcome: Progressing Note: Pt experiencing acute withdrawal. PRN ativan given as well as a one time dose of haldol. Precedex gtt initiated and titrated per MD parameters until RASS goal was met. 01/09/2022628 by Bang Jameson RN Outcome: Progressing Problem: Impaired Skin Integrity: Goal: Skin integrity will improve and/or be maintained Outcome: Progressing Note: Two nurse skin check done on each tour of duty with the off going RN. Thorough skin assessment is completed in order to ensure there is no compromise in the pt's skin integrity. Skin treatment provided, refer to skin LDA flowsheet. * 1:1 Interaction - Graham Scott MD - 01/09/2022 5:26 AM EDT Images from the original note were not included. SECLUSION/RESTRAINTS PROVIDER [id number] EVALUATION NOTE Will Anderson was evaluated on 01/09/22 at 0526. The attending, Dr. Marino was notified. The patient's immediate situation: Patient pulling medical devices. The patient's reaction to the intervention(s): Patient failed to respond to verbal redirection. The patient's medical and behavioral condition at this time: Patient in critical condition and requires medical devices. Need to continue restraint/seclusion order: Yes Patient needs restraints due to risk of harm to self * 1:1 Interaction - Graham Scott MD - 01/08/2022 10:46 PM EDT SECLUSION/RESTRAINTS PROVIDER [id number] EVALUATION NOTE Will Anderson was evaluated on 01/08/22 at 2230. The attending, Dr. Marino was notified. The patient's immediate situation: Patient became psychomotor agitated, Patient became physically aggressive with others and Patient pulling medical devices. The patient's reaction to the intervention(s): Patient failed to respond to verbal redirection, Patient became physically aggressive and Patient did not redirect with verbal cues. The patient's medical and behavioral condition at this time: Patient is psychmotor agitated, Patient has poor impulse control and impaired judgement and Patient in critical condition and requires medical devices. Need to continue restraint/seclusion order: Yes Patient needs restraints due to risk of harm to self documented in this [id number] Hospital course Narrative* Afua Umanzor MD - 01/17/2022 3:31 PM EDT Images from the original note were not included. DISCHARGE SUMMARY [facility] [address] [place] [address] Will Anderson Date of : 1985 36 year old male Attending Afua Umanzor MD Date of Admission 01/08/2022 Date of Discharge 01/17/22 [Principal Hospital Problem (Final Diagnosis)] Hemolytic anemia (HCC) [Secondary Hospital Problems] Hematoma Alcoholic hepatitis without ascites Coagulation defect (HCC) Alcoholic cirrhosis of liver without ascites (HCC) Thrombocytopenia (HCC) Jaundice Alcohol abuse Discharge Procedure Orders HAND AND UPPER EXTREMITY SERVICE REQUEST Referral Priority: Routine Referral Type: Service Level Authorization Referral Location: [facility] ORTHO HAND Number of Visits Requested: 3 Expiration Date: 01/17/23 HEMATOLOGY SERVICE REQUEST Referral Priority: Routine Referral Type: Service Level Authorization Referral Location: [facility] HEMATOLOGY Number of Visits Requested: 3 Expiration Date: 01/17/23 LIVER SERVICE REQUEST Referral Priority: Routine Referral Type: Service Level Authorization Referral Location: [facility] LIVER Number of Visits Requested: 3 Expiration Date: 01/17/23 Future Appointments Date Time Provider Department Center 01/20/2022 11:00 AM Abbey Alvarez MD Liver [facility] 01/23/2022 11:45 AM Ronen Welch MD [facility] ORTHO [facility] 02/11/2022 10:00 AM [facility] at Discharge Improved Activity No restrictions Diet No restrictions Disposition Home Functional Status Ambulatory Reason for Hospitalization Hemolytic anemia Left biceps rupture Alcoholic hepatitis. Significant Findings CBC (last 3 years, up to 5 values) (Last 5 results in the past 3 years) WBC RBC Hgb Hct MCV RDW Plt 01/17/22 0618 9.5 2.09 8.0 23.3 111 23.6 96 01/16/22 0503 9.2 1.92 7.4 21.6 112 23.7 94 01/15/22 0327 8.9 1.88 7.3 21.1 113 24.4 74 01/14/22 0355 7.3 1.91 7.3 21.3 112 24.1 65 01/13/22 0252 7.3 1.76 6.7 19.3 110 24.4 67 Basic Metabolic Panel (Last 5 results in the past 3 years) Na K Cl CO2 Gap Glu BUN Cr Ca 01/17/22 0709 131 3.8 99 23 13 84 8 0.42 Comment: Grossly icteric; may falsely decrease creatinine 8.2 01/16/22 0503 132 3.7 98 24 14 102 9 0.42 Comment: Grossly icteric; may falsely decrease creatinine 8.3 01/15/22 0327 132 3.5 97 25 14 112 8 0.42 Comment: Grossly icteric; may falsely decrease creatinine 7.9 01/14/22 0355 136 3.4 101 27 11 136 6 0.44 Comment: Grossly icteric; may falsely decrease creatinine 8.2 01/13/22 025 135 3.4 99 29 10 130 6 0.40 Comment: Grossly icteric; may falsely decrease creatinine 8.1 LFT's (last 3 years, up to 5 values) (Last 5 results in the past 3 years) T Prot Albumin D Bili T Bili Alk Phos ALT AST 01/17/22 0709 6.7 2.8 2.40 12.6 Comment: Elevated bilirubin may falsely lower creatinine 133 75 94 01/16/22 0503 6.3 2.7 2.30 12.7 Comment: Elevated bilirubin may falsely lower creatinine 124 69 93 01/15/22 0327 6.5 2.6 2.10 10.8 Comment: Elevated bilirubin may falsely lower creatinine 182 65 104 01/14/22 0355 6.4 2.6 2.20 11.5 Comment: Elevated bilirubin may falsely lower creatinine 177 62 104 01/13/22 0252 6.2 2.6 2.10 11.4 Comment: Elevated bilirubin may falsely lower creatinine 169 63 655 71 9791 6.4 2.6 2.10 11.1 Comment: Elevated bilirubin may falsely lower creatinine 148 61 131 Component 01/08/2022 01/10/2022 01/11/2022 01/12/2022 01/13/2022 01/14/2022 LD 369 (H) 378 (H) 428 (H) 458 (H) 497 (H) 473 (H) Component 01/15/2022 01/16/2022 LD 481 (H) 476 (H) Component 01/10/2022 01/11/2022 01/12/2022 01/13/2022 01/14/2022 01/15/2022 Haptoglobin <15 (L) <15 (L) <15 (L) <15 (L) <15 (L) <15 (L) Component 01/16/2022 Haptoglobin <15 (L) Component 01/08/2022 Iron 145 %SAT 68 (H) TIBC 214 (L) Transferrin, Serum 153 (L) Retic % 5.2 (H) Retic # 0.10 (H) Immature Retic Fract 0.56 (H) LD 369 (H) Haptoglobin <15 (L) Folic Acid, Serum 13.9 Vitamin B12 1,299 Ferritin 829.1 (H) INR (no units) Date Value 01/16/2022 2.08 (H) 01/15/2022 1.89 (H) 01/14/2022 1.94 (H) 01/13/2022 2.05 (H) 01/12/2022 2.12 (H) Component 01/08/2022 AYLIN Polyspecific Positive AYLIN Complement Negative AYLIN IgG Positive Component 01/08/2022 Hep B Surface Ab <3.1 Hep B Core Ab Total Nonreactive Hepatitis C Ab Nonreactive Hepatitis C RNA Quant Not Detected Hep A Ab Total Reactive (A) Hep A Ab IgM Nonreactive Component 01/09/2022 GEOVANNA SCRN Negative Component 01/09/2022 HIV Ag-Ab Screen Non-Reactive TSH (uIU/mL) Date Value 01/08/2022 6.627 (H) Component 01/09/2022 T4 (Thyroxine), Free 0.88 Component 01/09/2022 Copper 63 (L) Xray left elbow 1. No radiographic evidence of acute osseous abnormality of the left humerus or elbow. 2. Findings suggestive of diffuse subcutaneous edema. No elbow joint effusion. Xray left humerus 1. No radiographic evidence of acute osseous abnormality of the left humerus or elbow. 2. Findings suggestive of diffuse subcutaneous edema. No elbow joint effusion. Us ascitic survey No evidence of ascites. US liver 1. Cirrhosis with severe hepatic steatosis. 2. Focal asymmetric gallbladder wall thickening most suggestive of adenomyosis. Gallbladder sludge.No pericholecystic fluid or sonographic Galeano's sign to suggest acute cholecystitis. 3. Normal size common bile duct measuring 5 mm. Mild intrahepatic biliary dilatation is noted. Xray orbits No metallic orbital foreign body. US spleen Normal ultrasound of the spleen. US portal vein 1. The portal veins are patent and have normal direction of flow. 2. The hepatic veins are patent and have dampened spectral Doppler waveforms, probably secondary tocirrhosis. 3. Recanalized umbilical veins are well-seen on recent CT scan although are not demonstrated on this ultrasound. 4. Irregular hyperechoic liver probably representing combination of steatosis and cirrhosis. A formal liver parenchymal evaluation was not performed. 5. Perihepatic ascites, probably increased in volume from recent prior CT. Hospital Course 36M hx EtOH use d/o, HLA-B27 positive who initially presented on 01/07/2021 to OSH with LUE edema, pain, bruising s/p trauma. 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 He was seen at [facility] and transferred to ICU He was found to have significantly elevated indirect bilirubin, anemia, thrombocytopenia, elevated INR. CT of A/P showed cirrhosis of liver, there is no ascites. Hemolysis work up was positive with haptoglobin <15 and elevated LDH but unfortunately confounded by liver disease. AYLIN was positive. hematology was consulted. He was started on prednisone 1 mg/kg(70mg). hemoglobin stable after initiation of steroids. He became encephalopathic after transfer to ICU due to alcohol withdrawal and hepatic encephalopathy. He required precedex drip. HE treated with lactulose and rifaximin with improvement in symptoms. GI was consulted regarding liver disease. Orthopedics were consulted regarding the left arm biceps rupture. Initially MRI was planned but cancelled as he is not currently a surgical candidate. He needs to follow up with orthohand. On discharge, he is on prednisone 70mg daily for 2 weeks and then reduce to 60mg daily. He has appointment with hematology on 02/11/22 to determine further steroids taper. He is started on bactrim for PCP prophylaxis while on steroids. Patient declined talking to thrive. He stated he will get assistance from rehab in [place] for alcohol abuse. On the day of discharge, patient was stable. Left arm swelling was improving. He has good peripheral pulses in the left arm. He is alert and oriented x3. CVS - systolic murmur, lungs - clear to auscultation, abdomen - soft, nontender, GARMENT STEAMER - alert, moving all extremities. Current Discharge Medication List START taking these medications Details predniSONE (DELTASONE) 10 MG tablet Take 70mg daily for 14 days (until 01/21/22), and then 60mg daily until seen by hematology. Qty: 200 Tablet, Refills: 2 esomeprazole (NEXIUM) 40 MG capsule Take 1 Capsule by mouth daily (30 minutes before breakfast). Qty: 28 Capsule, Refills: 1 sulfamethoxazole-trimethoprim 800-160 MG (BACTRIM DS) 800-160 MG per tablet Take 1 Tablet by mouth daily. Qty: 30 Tablet, Refills: 1 diclofenac (VOLTAREN) 1 % GEL topical gel Apply 2 g topically 4 times daily. Qty: 50 g, Refills: 0 folic acid 1 MG tablet Take 1 Tablet by mouth daily. Qty: 30 Tablet, Refills: 3 vitamin B-1 (THIAMINE) 100 MG tablet Take 1 Tablet by mouth daily. Qty: 30 Tablet, Refills: 3 Multiple Vitamin (Multi-Vitamins) tablet Take 1 Tablet by mouth daily. Qty: 30 Tablet, Refills: 3 lactulose 20 g/30 mL SOLN oral solution Take 30 mL by mouth 2 times daily. Qty: 450 mL, Refills: 3 CONTINUE these medications which have NOT CHANGED Details chlorhexidine (PERIDEX) 0.12 % solution Take by mouth. Take one capful of solution and place on provided syringe and rinse open area inside of mouth twice a day. Qty: 1 bottle, Refills: 3 Associated Diagnoses: Open fracture of angle of jaw (HCC) STOP taking these medications ibuprofen (MOTRIN) 800 MG tablet Comments: Reason for Stopping: metoclopramide (REGLAN) 5 MG/5ML solution Comments: Reason for Stopping: metoclopramide (REGLAN) 10 MG tablet Comments: Reason for Stopping: More than 30 minutes spent by medicine team in preparing this patient's discharge, including reviewing orders and instructions, examination of the patient and in counseling the patient and/or family on the nature of the illness requiring hospital care. I provided the patient and/or family/surrogate with the following information: Explanation of the primary diagnosis, and secondary diagnoses where applicable, including test results, Discussion of any new medications and treatments, including expected benefits and potential major side effects, Discussion of post-hospital day-to-day care needs and Follow-up plans, and warning signs that should prompt more urgent follow-up Afua umanzor MD documented in this [id number] History of Present illness Narrative* Kennedi Best LISW - 01/16/2022 3:31 PM EDT On admission screen, the patient reports suicide ideation without a plan, prompting a Social Work behavioral health consultation. Social Work met with the patient to discuss concerns for no suicidal thoughts and wishes they were . Based upon updated assessment, the level of suicide risk is unchanged. The Patient is not currently linked to outpatient services. SW provided necessary resources and encouraged the patient to follow up. SW also assessed consult for abuse Pt reports no abuse concerns, unclear where that consult was for. SW addressed pts chronic ongoing ETOH use. Pt reports he plans on quitting. SW suggested pt get linked to [facility] or receive additional ETOH resources. Pt declines assistance. RAI Claudio, SUBSTATION OPERATOR CONVERSION-S [phone] * Afua Umanzor MD - 01/16/2022 8:18 AM EDT Images from the original note were not included. GENERAL MEDICAL FLOOR DAILY PROGRESS NOTE Will Anderson [id number] 1045/01/16/2022 Length of stay: 8 day(s) SUBJECTIVE: Patient transferred from ICU He reports pain in the left arm. No other complaints. OBJECTIVE: BP 136/61 (BP Location: right arm) Pulse 95 Temp 98.8 F (37.1 C) (Oral) Resp 18 Ht 5' 7 (1.702 m) Wt 150 lb (68 kg) Comment: standing scale SpO2 100% BMI 23.49 kg/m Intake/Output Summary (Last 24 hours) at 01/16/2022 1600 Last data filed at 01/16/2022 1534 Gross per 24 hour Intake 480 ml Output 600 ml Net -120 ml Physical Exam: General: comfortable Eyes: pale, icterus Respiratory: clear to auscultation Cardiovascular: normal heart sounds, no murmur Gastrointestinal: soft, nontender Ext: left arm swelling, blister near the left wrist Skin: no rash or lesions Neuro:alert, moving all extremities, oriented *3. CURRENT MEDICATIONS: Current Facility-Administered Medications Medication Dose Route Frequency Last Rate Last Admin tramadol (ULTRAM) tablet 50 mg Oral Q6H PRN 50 mg at 01/16/22 09 lactulose 20 g/30 mL oral solution 20 g Oral 2x Daily 20 g at 01/16/22 0919 diclofenac (VOLTAREN) 1 % topical GEL 2 g Topical 4x Daily 2 g at 01/16/22 1300 esomeprazole (NEXIUM) capsule 40 mg Oral 2x Daily 30 min AC 40 mg at 01/16/22 09 vitamin B-1 (THIAMINE) tablet 100 mg Oral Daily 100 mg at 01/16/22 0918 folic acid 1 MG tablet 1 mg Oral Daily 1 mg at 01/16/22 09 copper chloride 2 mg in sodium chloride 0.9 % 250 mL iv infusion 2 mg Intravenous Daily 125 mL/hr at 01/16/22 0929 2 mg at 01/16/22 09 ondansetron (ZOFRAN) 4 MG/2ML injection 4 mg Intravenous Push Q4H PRN insulin lispro (HumaLOG) 100 UNIT/ML injection 1-7 Units Subcutaneous q6h 1 Units at 01/15/22 1747 dextrose 10 % iv infusion 125 mL Intravenous PRN Or glucagon (GLUCAGEN) 1 MG injection 1 mg Subcutaneous PRN Or dextrose (GLUTOSE) 40 % gel 15 g of glucose Buccal PRN Or dextrose (GLUTOSE) 40 % gel 30 g of glucose Buccal PRN rifaximin (XIFAXAN) tablet 550 mg Oral 2x Daily 550 mg at 01/16/22 0938 acetaminophen (TYLENOL) 650 MG/20.3ML oral solution SF 500 mg Oral Q6H PRN 500 mg at 01/16/22 0359 prednisoLONE (ORAPRED) 15 MG/5ML oral solution 70 mg Oral Daily 70 mg at 01/16/22 1233 multivitamins with minerals (CEROVITE) oral liquid 15 mL Oral Daily 15 mL at 01/16/22 09 vitamin B-12 (CYANOCOBALAMIN) tablet 500 mcg Oral Daily 500 mcg at 01/16/22 09 cloNIDine (CATAPRES) 0.1 mg/24HR patch 0.1 mg Transdermal Q7 Days 0.1 mg at 01/16/22 1449 LAB DATA: CBC (last 3 years, up to 5 values) (Last 5 results in the past 3 years) WBC RBC Hgb Hct MCV RDW Plt 01/16/22 050 9.2 1.92 7.4 21.6 112 23.7 94 01/15/22 0327 8.9 1.88 7.3 21.1 113 24.4 74 01/14/22 0355 7.3 1.91 7.3 21.3 112 24.1 65 01/13/22 0252 7.3 1.76 6.7 19.3 110 24.4 67 01/12/22 1655 7.8 1.73 6.6 19.5 113 25.3 69 Basic Metabolic Panel (Last 5 results in the past 3 years) Na K Cl CO2 Gap Glu BUN Cr Ca 01/16/22502 132 3.7 98 24 14 102 9 0.42 Comment: Grossly icteric; may falsely decrease creatinine 8.3 01/15/22326 132 3.5 97 25 14 112 8 0.42 Comment: Grossly icteric; may falsely decrease creatinine 7.9 01/14/22 035 136 3.4 101 27 11 136 6 0.44 Comment: Grossly icteric; may falsely decrease creatinine 8.2 01/13/22251 135 3.4 99 29 10 130 6 0.40 Comment: Grossly icteric; may falsely decrease creatinine 8.1 01/12/22 0341 132 3.2 98 26 11 147 6 0.39 Comment: Grossly icteric; may falsely decrease creatinine 7.9 LFT's (last 3 years, up to 5 values) (Last 5 results in the past 3 years) T Prot Albumin D Bili T Bili Alk Phos ALT AST 01/16/22 0503 6.3 2.7 2.30 12.7 Comment: Elevated bilirubin may falsely lower creatinine 124 69 93 01/15/22 0327 6.5 2.6 2.10 10.8 Comment: Elevated bilirubin may falsely lower creatinine 182 65 104 01/14/22 0355 6.4 2.6 2.20 11.5 Comment: Elevated bilirubin may falsely lower creatinine 177 62 104 01/13/22 0252 6.2 2.6 2.10 11.4 Comment: Elevated bilirubin may falsely lower creatinine 169 63 124 01/12/22 0341 6.4 2.6 2.10 11.1 Comment: Elevated bilirubin may falsely lower creatinine 148 61 131 Component 01/08/2022 01/10/2022 01/11/2022 01/12/2022 01/13/2022 01/14/2022 LD 369 (H) 378 (H) 428 (H) 458 (H) 497 (H) 473 (H) Component 01/15/2022 01/16/2022 LD 481 (H) 476 (H) Component 01/10/2022 01/11/2022 01/12/2022 01/13/2022 01/14/2022 01/15/2022 Haptoglobin <15 (L) <15 (L) <15 (L) <15 (L) <15 (L) <15 (L) Component 01/16/2022 Haptoglobin <15 (L) Component 01/08/2022 Iron 145 %SAT 68 (H) TIBC 214 (L) Transferrin, Serum 153 (L) Retic % 5.2 (H) Retic # 0.10 (H) Immature Retic Fract 0.56 (H) LD 369 (H) Haptoglobin <15 (L) Folic Acid, Serum 13.9 Vitamin B12 1,299 Ferritin 829.1 (H) INR (no units) Date Value 01/16/2022 2.08 (H) 01/15/2022 1.89 (H) 01/14/2022 1.94 (H) 01/13/2022 2.05 (H) 01/12/2022 2.12 (H) Component 01/08/2022 AYLIN Polyspecific Positive AYLIN Complement Negative AYLIN IgG Positive Component 01/08/2022 Hep B Surface Ab <3.1 Hep B Core Ab Total Nonreactive Hepatitis C Ab Nonreactive Hepatitis C RNA Quant Not Detected Hep A Ab Total Reactive (A) Hep A Ab IgM Nonreactive Component 01/09/2022 GEOVANNA SCRN Negative Component 01/09/2022 HIV Ag-Ab Screen Non-Reactive TSH (uIU/mL) Date Value 01/08/2022 6.627 (H) Component 01/09/2022 T4 (Thyroxine), Free 0.88 Component 01/09/2022 Copper 63 (L) IMAGING/OTHER: Xray left elbow 1. No radiographic evidence of acute osseous abnormality of the left humerus or elbow. 2. Findings suggestive of diffuse subcutaneous edema. No elbow joint effusion. Xray left humerus 1. No radiographic evidence of acute osseous abnormality of the left humerus or elbow. 2. Findings suggestive of diffuse subcutaneous edema. No elbow joint effusion. Us ascitic survey No evidence of ascites. US liver 1. Cirrhosis with severe hepatic steatosis. 2. Focal asymmetric gallbladder wall thickening most suggestive of adenomyosis. Gallbladder sludge.No pericholecystic fluid or sonographic Galeano's sign to suggest acute cholecystitis. 3. Normal size common bile duct measuring 5 mm. Mild intrahepatic biliary dilatation is noted. Xray orbits No metallic orbital foreign body. US spleen Normal ultrasound of the spleen. US portal vein 1. The portal veins are patent and have normal direction of flow. 2. The hepatic veins are patent and have dampened spectral Doppler waveforms, probably secondary tocirrhosis. 3. Recanalized umbilical veins are well-seen on recent CT scan although are not demonstrated on this ultrasound. 4. Irregular hyperechoic liver probably representing combination of steatosis and cirrhosis. A formal liver parenchymal evaluation was not performed. 5. Perihepatic ascites, probably increased in volume from recent prior CT. ASSESSMENT AND PLAN: SUMMARY: 36 year old male with a history of alcohol abuse who presented with left UE swelling. He was found to have hyperbilirubinemia, anemia 2/2 AIHA, acute alcoholic hepatitis. Course complicated by delirium due to alcohol withdrawal. PROBLEM LIST: [Principal Hospital Problem (Final Diagnosis)] Hemolytic anemia (HCC) [Secondary Hospital Problems] Hematoma Alcoholic hepatitis without ascites Coagulation defect (HCC) Alcoholic cirrhosis of liver without ascites (HCC) Thrombocytopenia (HCC) Jaundice Alcohol abuse Hemolytic anemia - indirect hyperbilirubinemia, haptoglobin <15 and LDH elevated. - AYLIN positive - hematology following - on prednisone 1mg/kg daily - transfuse if hgb <5 Alcoholic hepatitis Alcoholic cirrhosis of liver Coagulopathy Thrombocytopenia 2/2 cirrhosis - no ascites on ascitic survey - patient counselled on alcohol cessation - on prednisone for alcoholic hepatitis and AIHA - monitor LFTs - outpatient follow up in liver clinic. Outpatient EGD for EV screening. Encephalopathy - resolved. Continue lactulose. Titrate to 2-3 soft BM Alcohol withdrawal - improved. Required precedex drip in ICU. Now oriented x3 . LUE swelling 2/2 trauma - Ortho consulted, appreciate recs: no fx on plain films. Ortho has ordered MR L elbow - MRI of L elbow when stable. - elevated left UE Copper deficiency - getting IV copper supplementation. Possible cellulitis of chest wall - completed 5 day course of ceftriaxone. Prophylaxis: SCD Code Status: full Afua umanzor MD * Leon Santana MD - 01/15/2022 9:47 AM EDT Images from the original note were not included. MICU ATTENDING NOTE LENO SANTANA MD - PIN [id number] I saw and evaluated the patient. I personally obtained the ferraro and critical portions of the historyand physical examination. I reviewed the resident's documentation and discussed the patient with the resident. I agree with the resident's medical decision making as documented in the resident's note. Additional findings and notation: Will Anderson is a 36 year old man with EtOH use disorder 01/08/2022 with traumatic arm injury and found to have acute liver injury and acute hemolytic anemia. BP 138/73 (BP Location: right arm) Pulse 92 Temp 98.6 F (37 C) (Oral) Resp 16 Ht 5' 7 (1.702 m) Wt 136 lb 3.9 oz (61.8 kg) SpO2 100% BMI 21.34 kg/m on room air Intake/Output Summary (Last 24 hours) at 01/15/2022 0948 Last data filed at 01/15/2022 0900 Gross per 24 hour Intake 4441.96 ml Output 4875 ml Net -433.04 ml Arterial Blood Gases None Basic Metabolic Panel Na K Cl CO2 Gap Glu BUN Cr Ca Mg PO4 01/15/22 0327 132 3.5 97 25 14 112 8 0.42 Comment: Grossly icteric; may falsely decrease creatinine 7.9 01/14/22 0355 136 3.4 101 27 11 136 6 0.44 Comment: Grossly icteric; may falsely decrease creatinine 8.2 01/13/22 0252 135 3.4 99 29 10 130 6 0.40 Comment: Grossly icteric; may falsely decrease creatinine 8.1 Hepatic/Biliary/Pancreas T Prot Albumin D Bili T Bili Alk Phos ALT AST Amylase Lipase 01/15/22 0327 6.5 2.6 2.10 10.8 Comment: Elevated bilirubin may falsely lower creatinine 182 65 104 01/14/22 0355 6.4 2.6 2.20 11.5 Comment: Elevated bilirubin may falsely lower creatinine 177 62 104 01/13/22 0252 6.2 2.6 2.10 11.4 Comment: Elevated bilirubin may falsely lower creatinine 169 63 124 CBC/PT/INR WBC RBC Hgb Hct MCV RDW Plt PT aPTT INR 01/15/22 032 8.9 1.88 7.3 21.1 113 24.4 74 01/15/22 0327 1.89 01/14/22 035 7.3 1.91 7.3 21.3 112 24.1 65 01/14/22 0355 1.94 01/13/22 025 7.3 1.76 6.7 19.3 110 24.4 67 01/13/22 0252 2.05 01/12/22 1655 7.8 1.73 6.6 19.5 113 25.3 69 WBC/Diff Neutro% Segs% Bands% Lymphs% Monos% Eos% Basos% 01/14/22 035 66.0 20.0 9.0 2.0 01/13/22251 69.0 8 15.0 1.0 01/12/221654 74.0 3 8.0 12.0 esomeprazole 40 mg 2x Daily 30 min AC [START ON 01/16/2022] vitamin B-1 100 mg Daily [START ON 01/16/2022] folic acid 1 mg Daily copper chloride iv infusion 2 mg Daily insulin lispro 1-7 Units q6h rifaximin 550 mg 2x Daily prednisoLONE 70 mg Daily lactulose 20 g 2x Daily multivitamins with minerals 15 mL Daily vitamin B-12 500 mcg Daily cloNIDine 0.1 mg Q7 Days dexmedetomidine (PRECEDEX) IV infusion orderable Stopped (01/15/22344) Tube feed 20 mL/hr at 01/09/22 1500 A/P: +) Acute alcoholic hepatitis/Cirrhosis/Encophalopathy -- Maddrey's DF 43 On steroids for hemolytic anemia and alcoholic hepatitis PPI Lactulose/rifaximin +) AIHA -- Labs confounded by cirrhosis, but AIHA by active hemolysis, positive AYLIN Hgb improving Prednisilone 1 mg/kg/day; discuss with Heme-Onc course Work-up as per Heme-Onc recommendations Transfuse for symptomatic anemia or < 5 Folic acid +) Thrombocytopenia/Coagulopathy -- Cirrhosis, EtOH Received vitamin K Supportive care +) EtOH withdrawal -- Thiamine/folate CIWA Dexmedetomidine off and has not required lorazepam +) Nutrition -- Regular diet Replete copper +) PT/OT -- +) Sedation/Analgesia -- +) DVT/GI prophylaxis -- SCDs PPI +) Lines/Catheters -- PIVs No Rosales +) Social/Goals of Care -- Parents Code Status: Full Code Leon Santana M.D. Director, Pulmonary, Critical Care and Sleep Medicine [facility] * Reanna Doyle, [facility] - 01/15/2022 9:24 AM EDT Pharmacy Intravenous to Enteral Dose Conversion Service Name: Will Anderson Age: [age] year old Gender: male Ht: 5' 7 Wt: 61.8 kg Patient is currently prescribed the follow intravenous medication(s): MH RX iv to po active orders (From admission, onward) Start Stop 01/10/22 2100 esomeprazole (NEXIUM) 40 MG injection 40 mg, Intravenous Push, 2 TIMES DAILY -- 01/08/22 1430 vitamin B-1 (thiamine) injection 100 mg 100 mg, Intravenous Push, DAILY -- 01/08/22 1430 folic acid 5 MG/ML injection 1 mg, Intravenous Push, DAILY -- Relevant objective data reviewed Dietary Orders (24h ago, onward) Start Ordered 01/15/22904 Full Liquid DIET References: System Diet Manual Question: Specify Diet Answer: Full Liquid 01/15/22903 The following criteria were reviewed at the time of order review: Receiving one of the select medications approved for IV to PO conversion (see table below and additional criteria embedded within the table related to the individual medications) for > 24 hours. Age greater than or equal to 18 years Not requiring vasopressor support Receiving and tolerating other PO medications Receiving and tolerating an oral or enteral diet (i.e. not NPO). Assessment and Recommendation: The following medication(s) ordered meet all eligibility criteria for intravenous to enteral dose conversion. The eligible IV medication(s) ordered have been updated to Esomeprazole 40 mg PO BID, Vitamin B-1 (thiamine) 100 mg PO daily, and Folic acid 1 mg PO daily . Medication therapy has been updated per consult agreement. REANNA DOYLE [facility] Department of Pharmacy Services * Keo Gaona MD - 01/15/2022 7:51 AM EDT Images from the original note were not included. [facility] Medical Intensive Care Unit Critical Care Progress Note Will Anderson 36 year old [id number] lbs MRN/Room: [id number]/CP3-303/1 Length of stay: 7 day(s) Summary 36M hx EtOH use d/o, HLA-B27 positive who initially presented on 01/07/2021 to OSH with LUE edema, pain, bruising s/p trauma. 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 Progressive swelling. Pt also noticed his skin was yellow x 1 day. While at [facility], patient was HDS, however noted with significant bru ising and edema of LUE. Reportedly, trauma surgery was consulted at [place] and there was initially concern for compartment syndrome and fasciotomy was considered, but ultimately did not occur at the time. The trauma attending Dr. Du recommended orthopedic consultation upon arrival to the [facility] MICU. While at [place] labs significant for indirect hyperbilirubinemia, and acute macrocytic anemia 6.9 requiring 1u pRBC and [address] Abd/Pelvis W/ Contrast showed liver cirrhosis and steatosis without CBD dilation. Received morphine, ceftriaxone, protonix, thiamine. Started on NS for rhabdo. Patient transferred to [facility] for tertiary center care. While in the [facility] MICU, Ortho following - request MR L elbow for assessment of possible complete vspartial L biceps tendon rupture. Corpak placed for nutrition and medications due to encephalopathy.Hematology following, who recommended prednisone 1mg/kg, daily labs and to monitor RBC transfusion protocol given patient currently HDS and suspected autoimmune anemia. US Spleen wnls. Gastroenterology following due to acute alcoholic hepatitis, (MDF 43) and Cirrhosis. Patient with worsening agitation requiring precedex gtt and Clonidine patch. Patient is off precedex and has not required ativan in the past 24 hours Most Recent Events Subjective: This AM, oriented AO X 3 but drowsy Current Medications copper chloride iv infusion 2 mg Daily insulin lispro 1-7 Units q6h rifaximin 550 mg 2x Daily esomeprazole 40 mg 2x Daily prednisoLONE 70 mg Daily lactulose 20 g 2x Daily multivitamins with minerals 15 mL Daily vitamin B-12 500 mcg Daily cloNIDine 0.1 mg Q7 Days folic acid 1 mg Daily vitamin B-1 100 mg Daily dexmedetomidine (PRECEDEX) IV infusion orderable Stopped (01/15/22 034) Tube feed 20 mL/hr at 01/09/22 1500 ondansetron 4 mg Q4H PRN dextrose iv for hypoglycemia orderable 125 mL PRN Or glucagon 1 mg PRN Or dextrose 15 g of glucose PRN Or dextrose 30 g of glucose PRN acetaminophen 500 mg Q6H PRN LORazepam 2 mg Q2H PRN Objective Patient Vitals for the past 24 hrs: BP Temp Temp src Pulse Resp SpO2 O2 Device 01/15/22 0700 -- -- -- 116 21 100 % -- 01/15/22 0600 126/64 -- -- 91 17 100 % -- 01/15/22 0500 124/74 -- -- 85 18 100 % -- 01/15/22 0400 120/78 -- -- 82 13 100 % Room air 01/15/22 0344 -- 98.5 F (36.9 C) Oral -- -- -- -- 01/15/22 0300 130/67 -- -- 100 19 100 % -- 01/15/22 0200 122/70 -- -- 87 15 100 % -- 01/15/22 0100 120/72 -- -- 82 15 100 % -- 01/15/22 0000 119/68 -- -- 82 14 93 % Room air 01/14/22 2320 -- 99 F (37.2 C) Oral -- -- -- -- 01/14/22 2300 119/55 -- -- 87 23 99 % -- 01/14/22 2200 121/71 -- -- 93 17 95 % -- 01/14/22 2110 113/65 -- -- 89 12 95 % -- 01/14/22 2100 -- -- -- 85 15 95 % -- 01/14/22 2000 126/69 98.7 F (37.1 C) Oral 101 21 95 % Room air 01/14/22 1900 121/63 -- -- 82 15 -- -- 01/14/22 1800 113/60 -- -- 82 14 99 % -- 01/14/22 1700 111/58 -- -- 78 14 99 % -- 01/14/22 1600 105/60 99.5 F (37.5 C) Oral 82 14 92 % -- 01/14/22 1500 109/69 -- -- 78 13 94 % Room air 01/14/22 1400 109/60 -- -- 84 17 93 % -- 01/14/22 1300 111/66 -- -- 80 13 95 % -- 01/14/22 1200 -- 98.5 F (36.9 C) Oral 86 15 93 % Room air 01/14/22 1100 116/62 -- -- 84 15 -- -- 01/14/22 1000 99/68 -- -- 86 18 91 % -- 01/14/22 0900 100/61 -- -- 93 18 96 % -- 01/14/22 0800 113/56 99.3 F (37.4 C) Oral 82 14 87 % -- Ins & Outs Admission Weight Weight: 147 lb 11.3 oz (67 kg) Today's Weight Weight: 136 lb 3.9 oz (61.8 kg) BMI 21.34 Change in Weight: Current value is 136.2 lb (61.799 kg) on 01/15/2022 at 0348 -0.4 lb (-0.200 kg) (-0.32 %) from 136.7 lb (61.999 kg) on 01/14/2022 at 0400 (previous value) -11.5 lb (-5.200 kg) (-7.76 %) from 147.7 lb (66.999 kg) on 01/08/2022 at 0800 (first value for this admission) Intake/Output Summary (Last 24 hours) at 01/15/2022 0752 Last data filed at 01/15/2022 0700 Gross per 24 hour Intake 4707.86 ml Output 5275 ml Net -567.14 ml In: 4707.9 (76.2 mL/kg) [P.O.:2575; I.V.:632.9 (0.4 mL/kg/hr)] Out: 5275 (85.4 mL/kg) [Urine:4875 (3.3 mL/kg/hr)] Net: -567.1 Weight: 61.8 kg Peripheral IV Access: 01/07/22 Right Forearm Present on Arrival to Hospital (Active) Site Assessment WNL;Dressing intact 01/09/22 0400 Infusion Status Port #1 Infusing;Patent 01/09/22 0400 Number of days: 2 Peripheral IV Access: 01/08/22 Right Hand Present on Arrival to Hospital (Active) Site Assessment WNL;Dressing intact 01/09/22 0400 Infusion Status Port #1 Capped;Patent;Positive blood return 01/09/22 0400 Number of days: 1 External Urinary Collection (Active) Site Assessment WNL 01/09/22 0400 Collection Type Drainage bag 01/09/22 0400 Catheter Care Catheter tube secured 01/09/22 0400 Change Date 01/09/22 01/09/22 0000 Change Time 0000 01/09/22 0000 Urine (ml) 95 01/09/22 0600 Number of days: 0 Physical Exam Physical Exam Constitutional: Appearance: Normal appearance. HENT: Head: Normocephalic and atraumatic. Nose: Nose normal. No congestion. Mouth/Throat: Mouth: Mucous membranes are moist. Pharynx: Oropharynx is clear. Eyes: General: Scleral icterus present. Extraocular Movements: Extraocular movements intact. Cardiovascular: Rate and Rhythm: Normal rate and regular rhythm. Pulses: Normal pulses. Heart sounds: No murmur heard. Pulmonary/Chest/Breast: Effort normal. He has no wheezes. He has no rhonchi. He has no rales. Abdominal: General: Abdomen is flat. Bowel sounds are normal. There is no distension. Palpations: Abdomen is soft. Tenderness: There is no abdominal tenderness. Musculoskeletal: General: Swelling (Left upper extremity and hand ) present. Normal range of motion. Cervical back: Normal range of motion and neck supple. Right lower leg: No edema. Left lower leg: No edema. Neurological: General: No focal deficit present. Mental Status: He is alert and oriented to person, place, and time. Skin: General: Skin is warm and dry. Coloration: Skin is jaundiced. Psychiatric: Mood and Affect: Mood normal. Behavior: Behavior normal. Vitals and nursing note reviewed. Labs Arterial Blood Gases None CBC/PT/INR WBC RBC Hgb Hct MCV RDW Plt PT aPTT INR 01/15/22 032 8.9 1.88 7.3 21.1 113 24.4 74 01/15/22 0327 1.89 01/14/22 035 7.3 1.91 7.3 21.3 112 24.1 65 01/14/22 0355 1.94 01/13/22 025 7.3 1.76 6.7 19.3 110 24.4 67 01/13/22 0252 2.05 01/12/22 1655 7.8 1.73 6.6 19.5 113 25.3 69 WBC/Diff Neutro% Segs% Bands% Lymphs% Monos% Eos% Basos% 01/14/22354 66.0 20.0 9.0 2.0 01/13/22251 69.0 8 15.0 1.0 01/12/22 1655 74.0 3 8.0 12.0 Basic Metabolic Panel Na K Cl CO2 Gap Glu BUN Cr Ca Mg PO4 01/15/22326 132 3.5 97 25 14 112 8 0.42 Comment: Grossly icteric; may falsely decrease creatinine 7.9 01/14/22354 136 3.4 101 27 11 136 6 0.44 Comment: Grossly icteric; may falsely decrease creatinine 8.2 01/13/22251 135 3.4 99 29 10 130 6 0.40 Comment: Grossly icteric; may falsely decrease creatinine 8.1 Creatinine clearance from [place]-Gault: 210 ml/min using actual weight 61.8 kg (IBW 66.1 kg ignored) GFR from MDRD: greater than 60 age 36 yr, cr=0.42 on 01/15/2022, race White LFT's (last 3 years, up to 5 values) (Last 5 results in the past 3 years) T Prot Albumin D Bili T Bili Alk Phos ALT AST 01/15/22 0327 6.5 2.6 2.10 10.8 Comment: Elevated bilirubin may falsely lower creatinine 182 65 104 01/14/22 0355 6.4 2.6 2.20 11.5 Comment: Elevated bilirubin may falsely lower creatinine 177 62 104 01/13/22 0252 6.2 2.6 2.10 11.4 Comment: Elevated bilirubin may falsely lower creatinine 169 63 124 01/12/22 0341 6.4 2.6 2.10 11.1 Comment: Elevated bilirubin may falsely lower creatinine 148 61 131 01/11/22 0116 5.7 2.6 2.20 11.4 Comment: Elevated bilirubin may falsely lower creatinine 95 57 143 Cardiac None Fingerstick Glucose Glucose 01/15/22 0346 148 Comment: Notified IRENA NICHOLAS MD 01/14/22 2200 139 Comment: Notified IRENA NICHOLAS MD Follow Protocol 01/14/22 1547 203 Comment: Notified IRENA NICHOLAS MD Follow Protocol 01/14/22 0956 143 Comment: Notified IRENA NICHOLAS MD Follow Protocol INR (no units) Date Value 01/15/2022 1.89 (H) 01/14/2022 1.94 (H) 01/13/2022 2.05 (H) 01/12/2022 2.12 (H) 01/11/2022 2.16 (H) TSH (uIU/mL) Date Value 01/08/2022 6.627 (H) No results found for: HBA1C Lipids (last 3 years, up to 5 values) Chol- esterol TG HDL LDL Chol / HDL LDL / HDL Non HDL 01/08/22 1524 341 266 30 277 11.37 9.23 311 Cultures Blood Culture Blood culture 01/09/22 1105 No Growth 01/09/22 1105 No Growth Urine Culture None Respiratory Culture, Misc None Pyogen Culture None Reticulocyte index = 1.24; this indicates hypoproliferation. Imaging US ASCITES 01/08 IMPRESSION: No evidence of ascites. US RUQ US 01/08 IMPRESSION: 1. Cirrhosis with severe hepatic steatosis. 2. Focal asymmetric gallbladder wall thickening most suggestive of adenomyosis. Gallbladder sludge.No pericholecystic fluid or sonographic Galeano's sign to suggest acute cholecystitis. 3. Normal size common bile duct measuring 5 mm. Mild intrahepatic biliary dilatation is noted. CXR 01/09 Impression: CorPak tube is in the antrum. Examination is otherwise limited. Consults GI Ortho Resident's Assessment/Plan 36 male with past medical history of Alcohol use disorder, who presented tot ED with complaints of LUE swelling and pain. Patient ultimately found to have acute alcoholic hepatitis and therefore was admitted to the MICU. 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 DDx favors hemolysis - could be from hematoma formation from his injuries vs autoimmune, vs. viral hepatitis, less likely No ascites on US ascites survey RUQ US - c/w cirrhosis, also found focal GB wall thickening c/w adenomyosis (a benign finding persearch). CBD is normal 5mm. Mild interhepatic biliary dilatation. - LDH elevated, low haptoglobin c/w hemolysis. retic index is lower (likely bone marrow suppressionfrom EtOH). 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 In the setting of this, will hold on additional transfusions as pt is HDS. Will consult hematology on further recommendations. Plan: - Daily PT/INR - GI consulted, appreciate recs - 2 Large bore PIVs - Transfuse if HB < 5 or if symptomatic. - Lactulose BID and rifaximin 550 mg bid - Prednisolone 1mg/kg (treatment for autoimmune hemolytic anemia) - Folic acid and thiamine supplementation daily - Vitamin K per GI, 1 dose remaining -Transfer to floors # Acute macrocytic anemia, Autoimmune suspected No overt GIB. s/p 1u [facility]RBC from [facility], did not increment appropriately - only 6.9 --> 7.2 after the unitof blood. - LDH elevated, low haptoglobin c/w hemolysis. retic index is lower (likely bone marrow suppressionfrom etoh). 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 In the setting of this, will hold on additional transfusions as pt is HDS. Will consult hematology on further recommendations. Plan: - CBC's daily - 2 Large bore PIVs - Transfuse if HB < 5 or if symptomatic. -TSH elevated, but subsequent T4 wnl -- subclinical hypothyroidism. - Prednisolone 1mg/kg daily - Maintain Nexium 40mg IV BID -Transfer to floors # LUE swelling 2/2 trauma Plan: - Ortho consulted, appreciate recs: no fx on plain films. 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 Last dose 01/12. - Skin care #Systolic murmur Likely flow murmur Plan: - Monitor for now. # Malnutrition #Low copper Goal glc 140-180, check POCT Glucose q6h while NPO TSH elevated, but subsequent T4 wnl -- subclinical hypothyroidism. Due to encephalopathy from etoh wdl, Plan: - Corpak placed, start tube feeds - IV Copper 2mg x 5 days # Rhabdomyolysis - mild -CK 700's --> 1000 --->300-->normal Plan: - LR @ 150cc/h stopped F (feeding/fluids): TF A (analgesia): Tylenol with 2g daily limit. S (sedation): Precidex T (thromoboprophylaxis): SCDs H (head up position): 30 degrees due to risk for aspiration U (ulcer prophylaxis): Nexium BID G (glycemic control): As above S (spontaneous breathing trial): n/a B (bowel care): Lactulose I ( Invasive): none D (deescalation of antibiotics): NA Social- Dad Rich [phone] and mom Code Status: Full Code Dispo: MICU Plan is preliminary until discussed with attending Keo Gaona MD PGY-2 * Leon Santana MD - 01/14/2022 11:16 AM EDT Images from the original note were not included. MICU ATTENDING NOTE LEON SANTANA MD - PIN [id number] I saw and evaluated the patient. I personally obtained the ferraro and critical portions of the historyand physical examination. I reviewed the resident's documentation and discussed the patient with the resident. I agree with the resident's medical decision making as documented in the resident's note. This patient has a high probability of sudden, clinically significant deterioration, which requiresthe highest level of physician preparedness to intervene urgently. I managed/supervised life or organ supporting interventions that required frequent physician assessment. Time I spent with family or surrogate(s) is included only if the patient was incapable of providing the necessary information or participating in medical decision making. Time devoted to teaching and to any procedures I billed separately is not included. I spent 31 critical care minutes of my full attention on this patient's management and direct patient care. Of note, medical issues requiring critical care management include: GARMENT STEAMER FAILURE. HEPATIC FAILURE . Additional findings and notation: Will Anderson is a 36 year old man with EtOH use disorder 01/08/2022 with traumatic arm injury and found to have acute liver injury and acute hemolytic anemia. BP 105/60 Pulse 82 Temp 99.5 F (37.5 C) (Oral) Resp 14 Ht 5' 7 (1.702 m) Wt 136 lb 11 oz(62 kg) SpO2 92% BMI 21.41 kg/m on room air Intake/Output Summary (Last 24 hours) at 01/14/2022 1646 Last data filed at 01/14/2022 1613 Gross per 24 hour Intake 5737.77 ml Output 4850 ml Net 887.77 ml Arterial Blood Gases None Basic Metabolic Panel Na K Cl CO2 Gap Glu BUN Cr Ca Mg PO4 01/14/22 0355 136 3.4 101 27 11 136 6 0.44 Comment: Grossly icteric; may falsely decrease creatinine 8.2 01/13/22 0252 135 3.4 99 29 10 130 6 0.40 Comment: Grossly icteric; may falsely decrease creatinine 8.1 01/12/22 0341 132 3.2 98 26 11 147 6 0.39 Comment: Grossly icteric; may falsely decrease creatinine 7.9 Hepatic/Biliary/Pancreas T Prot Albumin D Bili T Bili Alk Phos ALT AST Amylase Lipase 01/14/22 0355 6.4 2.6 2.20 11.5 Comment: Elevated bilirubin may falsely lower creatinine 177 62 104 01/13/22 0252 6.2 2.6 2.10 11.4 Comment: Elevated bilirubin may falsely lower creatinine 169 63 124 01/12/22 0341 6.4 2.6 2.10 11.1 Comment: Elevated bilirubin may falsely lower creatinine 148 61 131 CBC/PT/INR WBC RBC Hgb Hct MCV RDW Plt PT aPTT INR 01/14/22 035 7.3 1.91 7.3 21.3 112 24.1 65 01/14/22 0355 1.94 01/13/22 025 7.3 1.76 6.7 19.3 110 24.4 67 01/13/22 0252 2.05 01/12/22 1655 7.8 1.73 6.6 19.5 113 25.3 69 01/12/22 0341 2.12 01/12/22 0340 8.0 1.72 6.5 18.7 109 25.4 59 WBC/Diff Neutro% Segs% Bands% Lymphs% Monos% Eos% Basos% 01/14/22 035 66.0 20.0 9.0 2.0 01/13/22 025 69.0 8 15.0 1.0 01/12/22 1655 74.0 3 8.0 12.0 01/12/220 66.4 20.7 11.3 0.9 0.7 copper chloride iv infusion 2 mg Daily insulin lispro 1-7 Units q6h rifaximin 550 mg 2x Daily esomeprazole 40 mg 2x Daily prednisoLONE 70 mg Daily lactulose 20 g 2x Daily multivitamins with minerals 15 mL Daily vitamin B-12 500 mcg Daily cloNIDine 0.1 mg Q7 Days folic acid 1 mg Daily vitamin B-1 100 mg Daily dexmedetomidine (PRECEDEX) IV infusion orderable 0.4 mcg/kg/hr (01/14/22 1600) Tube feed 20 mL/hr at 01/09/22 1500 A/P: +) Acute alcoholic hepatitis/Cirrhosis/Encophalopathy -- Maddrey's DF 42 On steroids for hemolytic anemia and alcoholic hepatitis PPI Lactulose/rifaximin +) AIHA -- Labs confounded by cirrhosis, but AIHA by active hemolysis, positive AYLIN Hgb improving Prednisilone 1 mg/kg/day Work-up as per Heme-Onc recommendations Transfuse for symptomatic anemia or < 5 Folic acid +) Thrombocytopenia/Coagulopathy -- Cirrhosis, EtOH Received vitamin K Supportive care +) EtOH withdrawal -- Thiamine/folate CIWA Dexmedetomidine 0.6 mcg/kg/hour + lorazepam 2 mg prn (has not needed in 24 hours) +) Nutrition -- Tube feeds Replete copper +) PT/OT -- +) Sedation/Analgesia -- +) DVT/GI prophylaxis -- SCDs PPI +) Lines/Catheters -- PIVs No Rosales +) Social/Goals of Care -- Parents Code Status: Full Code Leon Santana M.D. Director, Pulmonary, Critical Care and Sleep Medicine [facility] * Keo Gaona MD - 01/14/2022 7:42 AM EDT Images from the original note were not included. [facility] Medical Intensive Care Unit Critical Care Progress Note Will Anderson 36 year old 136.685 lbs MRN/Room: [id number]/CP3-303/1 Length of stay: 6 day(s) Summary 36M hx EtOH use d/o, HLA-B27 positive who initially presented on 01/07/2021 to OSH with LUE edema, pain, bruising s/p trauma. 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 Progressive swelling. Pt also noticed his skin was yellow x 1 day. While at [facility], patient was HDS, however noted with significant bru ising and edema of LUE. Reportedly, trauma surgery was consulted at [place] and there was initially concern for compartment syndrome and fasciotomy was considered, but ultimately did not occur at the time. The trauma attending Dr. Du recommended orthopedic consultation upon arrival to the [facility] MICU. While at [place] labs significant for indirect hyperbilirubinemia, and acute macrocytic anemia 6.9 requiring 1u pRBC and [address] Abd/Pelvis W/ Contrast showed liver cirrhosis and steatosis without CBD dilation. Received morphine, ceftriaxone, protonix, thiamine. Started on NS for rhabdo. Patient transferred to [facility] for tertiary center care. While in the [facility] MICU, Ortho following - request MR Nadia elbow for assessment of possible complete vspartial L biceps tendon rupture. Corpak placed for nutrition and medications due to encephalopathy.Hematology following, who recommended prednisone 1mg/kg, daily labs and to monitor RBC transfusion protocol given patient currently HDS and suspected autoimmune anemia. US Spleen wnls. Gastroenterology following due to acute alcoholic hepatitis, (MDF 43) and Cirrhosis. Patient with worsening agitation requiring precedex gtt and Clonidine patch. Most Recent Events Subjective: This AM, oriented AO X 3 but drowsy Current Medications potassium chloride 40 mEq One Time Dose insulin lispro 1-7 Units q6h rifaximin 550 mg 2x Daily esomeprazole 40 mg 2x Daily prednisoLONE 70 mg Daily lactulose 20 g 2x Daily multivitamins with minerals 15 mL Daily vitamin B-12 500 mcg Daily cloNIDine 0.1 mg Q7 Days folic acid 1 mg Daily vitamin B-1 100 mg Daily dexmedetomidine (PRECEDEX) IV infusion orderable 0.8 mcg/kg/hr (01/13/22 2230) Tube feed 20 mL/hr at 01/09/22 1500 lactated ringers 150 mL/hr at 01/14/22 0200 dextrose iv for hypoglycemia orderable 125 mL PRN Or glucagon 1 mg PRN Or dextrose 15 g of glucose PRN Or dextrose 30 g of glucose PRN acetaminophen 500 mg Q6H PRN LORazepam 2 mg Q2H PRN Objective Patient Vitals for the past 24 hrs: BP Temp Temp src Pulse Resp SpO2 O2 Device 01/14/22 0700 105/60 -- -- 83 14 94 % -- 01/14/22 0600 116/59 -- -- 80 13 94 % -- 01/14/22 0500 114/69 -- -- 80 13 93 % -- 01/14/22 0400 116/69 -- -- 83 15 93 % Room air 01/14/22 0334 -- 99.2 F (37.3 C) Oral -- -- -- -- 05/10/22 0300 121/69 -- -- 81 14 94 % -- 01/14/22 0200 126/72 -- -- 78 13 94 % -- 01/14/22 0100 117/76 -- -- 76 11 98 % -- 01/14/22 0000 115/70 -- -- 81 16 97 % Room air 01/13/22 2347 -- 97.4 F (36.3 C) Axillary -- -- -- -- 01/13/22 2300 112/69 -- -- 76 13 98 % -- 01/13/22 2200 125/75 -- -- 79 15 95 % -- 01/13/22 2100 120/70 -- -- 80 12 96 % -- 01/13/221999 131/74 -- -- 76 14 94 % Room air 01/13/221951 -- 97.9 F (36.6 C) Oral -- -- -- -- 01/13/22 1900 145/87 -- -- 76 13 94 % -- 01/13/22 1800 138/76 -- -- 77 15 92 % Room air 01/13/22 1700 133/76 -- -- 79 15 93 % -- 01/13/22 1600 117/63 -- -- 85 17 89 % Room air 01/13/22 1549 -- 98.2 F (36.8 C) Oral -- -- -- -- 01/13/22 1500 133/52 -- -- 88 18 95 % -- 01/13/22 1400 151/87 -- -- 84 17 94 % Room air 01/13/22 1300 137/72 -- -- 85 19 95 % -- 01/13/22 1200 158/85 -- -- 81 16 94 % Room air 01/13/22 1131 -- 98.7 F (37.1 C) Axillary -- -- -- -- 01/13/22 1100 105/72 -- -- 86 17 91 % -- 01/13/22 1000 124/58 -- -- 93 20 95 % Room air 01/13/22 0900 135/72 -- -- 81 16 90 % Room air 01/13/22 0830 -- -- -- 85 18 88 % Room air 01/13/22 0800 132/72 -- -- 85 17 92 % Room air Ins & Outs Admission Weight Weight: 147 lb 11.3 oz (67 kg) Today's Weight Weight: 136 lb 11 oz (62 kg) BMI 21.41 Change in Weight: Current value is 136.7 lb (61.999 kg) on 01/14/2022 at 0400 +5.3 lb (2.400 kg) (4.03 %) from 131.4 lb (59.599 kg) on 01/13/2022 at 0600 (previous value) -11.0 lb (-5.000 kg) (-7.46 %) from 147.7 lb (66.999 kg) on 01/08/2022 at 0800 (first value for this admission) Intake/Output Summary (Last 24 hours) at 01/14/2022 0742 Last data filed at 01/14/2022 0700 Gross per 24 hour Intake 6146.57 ml Output 5560 ml Net 586.57 ml In: 6146.6 (99.1 mL/kg) [P.O.:350; I.V.:4036.6 (2.7 mL/kg/hr)] Out: 5560 (89.7 mL/kg) [Urine:5460 (3.7 mL/kg/hr)] Net: 586.6 Weight: 62 kg Peripheral IV Access: 01/07/22 Right Forearm Present on Arrival to Hospital (Active) Site Assessment WNL;Dressing intact 01/09/22 040 Infusion Status Port #1 Infusing;Patent 01/09/22 0400 Number of days: 2 Peripheral IV Access: 01/08/22 Right Hand Present on Arrival to Hospital (Active) Site Assessment WNL;Dressing intact 01/09/22 040 Infusion Status Port #1 Capped;Patent;Positive blood return 01/09/22 0400 Number of days: 1 External Urinary Collection (Active) Site Assessment WNL 01/09/22 040 Collection Type Drainage bag 01/09/22 040 Catheter Care Catheter tube secured 01/09/22 0400 Change Date 01/09/22 01/09/22 0000 Change Time 0000 01/09/22 0000 Urine (ml) 95 01/09/22 0600 Number of days: 0 Physical Exam Physical Exam Constitutional: Appearance: Normal appearance. HENT: Head: Normocephalic and atraumatic. Nose: Nose normal. No congestion. Mouth/Throat: Mouth: Mucous membranes are moist. Pharynx: Oropharynx is clear. Eyes: General: Scleral icterus present. Extraocular Movements: Extraocular movements intact. Cardiovascular: Rate and Rhythm: Normal rate and regular rhythm. Pulses: Normal pulses. Heart sounds: No murmur heard. Pulmonary/Chest/Breast: Effort normal. He has no wheezes. He has no rhonchi. He has no rales. Abdominal: General: Abdomen is flat. Bowel sounds are normal. There is no distension. Palpations: Abdomen is soft. Tenderness: There is no abdominal tenderness. Musculoskeletal: General: Swelling (Left upper extremity and hand ) present. Normal range of motion. Cervical back: Normal range of motion and neck supple. Right lower leg: No edema. Left lower leg: No edema. Neurological: General: No focal deficit present. Mental Status: He is alert and oriented to person, place, and time. Skin: General: Skin is warm and dry. Coloration: Skin is jaundiced. Psychiatric: Mood and Affect: Mood normal. Behavior: Behavior normal. Vitals and nursing note reviewed. Labs Arterial Blood Gases None CBC/PT/INR WBC RBC Hgb Hct MCV RDW Plt PT aPTT INR 01/14/22 0355 7.3 1.91 7.3 21.3 112 24.1 65 01/14/22 0355 1.94 01/13/22 0252 7.3 1.76 6.7 19.3 110 24.4 67 01/13/22 0252 2.05 01/12/22 1655 7.8 1.73 6.6 19.5 113 25.3 69 01/12/22 0341 2.12 01/12/22 0340 8.0 1.72 6.5 18.7 109 25.4 59 01/11/22 1430 7.2 1.61 6.2 17.6 109 24.8 88 WBC/Diff Neutro% Segs% Bands% Lymphs% Monos% Eos% Basos% 01/14/22 0355 66.0 20.0 9.0 2.0 01/13/22 0252 69.0 8 15.0 1.0 01/12/22 1655 74.0 3 8.0 12.0 01/12/22 0340 66.4 20.7 11.3 0.9 0.7 01/11/22 1430 78.0 3 10.0 7.0 2.0 Basic Metabolic Panel Na K Cl CO2 Gap Glu BUN Cr Ca Mg PO4 01/14/22 0355 136 3.4 101 27 11 136 6 0.44 Comment: Grossly icteric; may falsely decrease creatinine 8.2 01/13/22251 135 3.4 99 29 10 130 6 0.40 Comment: Grossly icteric; may falsely decrease creatinine 8.1 01/12/22340 132 3.2 98 26 11 147 6 0.39 Comment: Grossly icteric; may falsely decrease creatinine 7.9 Creatinine clearance from Cockroft-Gault: 202 ml/min using actual weight 62.0 kg (IBW 66.1 kg ignored) GFR from MDRD: greater than 60 age 36 yr, cr=0.44 on 01/14/2022, race White LFT's (last 3 years, up to 5 values) (Last 5 results in the past 3 years) T Prot Albumin D Bili T Bili Alk Phos ALT AST 01/14/22354 6.4 2.6 2.20 11.5 Comment: Elevated bilirubin may falsely lower creatinine 177 62 104 01/13/22251 6.2 2.6 2.10 11.4 Comment: Elevated bilirubin may falsely lower creatinine 169 63 124 01/12/22340 6.4 2.6 2.10 11.1 Comment: Elevated bilirubin may falsely lower creatinine 148 61 131 01/11/22 0116 5.7 2.6 2.20 11.4 Comment: Elevated bilirubin may falsely lower creatinine 95 57 143 01/10/22 0353 6.0 2.7 2.60 11.1 Comment: Elevated bilirubin may falsely lower creatinine 87 54 147 Cardiac None Fingerstick Glucose Glucose 01/14/22 0355 154 Comment: Follow Protocol 01/13/226 185 Comment: Notified IRENA NICHOLAS MD 01/13/22 1551 226 01/13/22 0935 152 Comment: Notified IRENA NICHOLAS MD INR (no units) Date Value 01/14/2022 1.94 (H) 01/13/2022 2.05 (H) 01/12/2022 2.12 (H) 01/11/2022 2.16 (H) 01/10/2022 1.79 (H) TSH (uIU/mL) Date Value 01/08/2022 6.627 (H) No results found for: HBA1C Lipids (last 3 years, up to 5 values) Chol- esterol TG HDL LDL Chol / HDL LDL / HDL Non HDL 01/08/22 1524 341 266 30 277 11.37 9.23 311 Cultures Blood Culture Blood culture 01/09/22 1105 No growth to date, culture reincubated [P] 01/09/22 1105 No growth to date, culture reincubated [P] [P] - Preliminary Result Urine Culture None Respiratory Culture, Misc None Pyogen Culture None Reticulocyte index = 1.24; this indicates hypoproliferation. Imaging US ASCITES 01/08 IMPRESSION: No evidence of ascites. US RUQ US 01/08 IMPRESSION: 1. Cirrhosis with severe hepatic steatosis. 2. Focal asymmetric gallbladder wall thickening most suggestive of adenomyosis. Gallbladder sludge.No pericholecystic fluid or sonographic Galeano's sign to suggest acute cholecystitis. 3. Normal size common bile duct measuring 5 mm. Mild intrahepatic biliary dilatation is noted. CXR 01/09 Impression: CorPak tube is in the antrum. Examination is otherwise limited. Consults GI Ortho Resident's Assessment/Plan 36 male with past medical history of Alcohol use disorder, who presented tot ED with complaints of LUE swelling and pain. Patient ultimately found to have acute alcoholic hepatitis and therefore was admitted to the MICU. 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 DDx favors hemolysis - could be from hematoma formation from his injuries vs autoimmune, vs. viral hepatitis, less likely No ascites on US ascites survey RUQ US - c/w cirrhosis, also found focal GB wall thickening c/w adenomyosis (a benign finding persearch). CBD is normal 5mm. Mild interhepatic biliary dilatation. - LDH elevated, low haptoglobin c/w hemolysis. retic index is lower (likely bone marrow suppressionfrom EtOH). 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 In the setting of this, will hold on additional transfusions as pt is HDS. Will consult hematology on further recommendations. Plan: - Daily PT/INR - GI consulted, appreciate recs - 2 Large bore PIVs - Transfuse if HB < 5 or if symptomatic. - Lactulose BID and rifaximin 550 mg bid - Prednisolone 1mg/kg (treatment for autoimmune hemolytic anemia) - Folic acid and thiamine supplementation daily - Vitamin K per GI, 1 dose remaining # Acute macrocytic anemia, Autoimmune suspected No overt GIB. s/p 1u pRBC from [place], did not increment appropriately - only 6.9 --> 7.2 after the unitof blood. - LDH elevated, low haptoglobin c/w hemolysis. retic index is lower (likely bone marrow suppressionfrom etoh). 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 In the setting of this, will hold on additional transfusions as pt is HDS. Will consult hematology on further recommendations. Plan: - CBC's daily - 2 Large bore PIVs - Transfuse if HB < 5 or if symptomatic. -TSH elevated, but subsequent T4 wnl -- subclinical hypothyroidism. - Prednisolone 1mg/kg daily - Maintain Nexium 40mg IV BID # LUE swelling 2/2 trauma Plan: - Ortho consulted, appreciate recs: no fx on plain films. 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 Last dose 01/12. - Skin care #Systolic murmur Likely flow murmur Plan: - Monitor for now. # Malnutrition #Low copper Goal glc 140-180, check POCT Glucose q6h while NPO TSH elevated, but subsequent T4 wnl -- subclinical hypothyroidism. Due to encephalopathy from etoh wdl, Plan: - Corpak placed, start tube feeds - Copper 2mg x 5 days # Rhabdomyolysis - mild -CK 700's --> 1000 --->300-->normal Plan: - LR @ 150cc/h stopped F (feeding/fluids): TF A (analgesia): Tylenol with 2g daily limit. S (sedation): Precidex T (thromoboprophylaxis): SCDs H (head up position): 30 degrees due to risk for aspiration U (ulcer prophylaxis): Nexium BID G (glycemic control): As above S (spontaneous breathing trial): n/a B (bowel care): Lactulose I ( Invasive): none D (deescalation of antibiotics): NA Social- Dad Rich [phone] and mom Code Status: Full Code Dispo: MICU Plan is preliminary until discussed with attending Keo Gaona MD PGY-2 * Keo Gaona MD - 01/13/2022 10:37 AM EDT Images from the original note were not included. [facility] Medical Intensive Care Unit Critical Care Progress Note Will Anderson 36 year old [id number] lbs MRN/Room: [id number]/1 Length of stay: 5 day(s) Summary 36M hx EtOH use d/o, HLA-B27 positive who initially presented on 01/07/2021 to OSH with LUE edema, pain, bruising s/p trauma. 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 Progressive swelling. Pt also noticed his skin was yellow x 1 day. While at [facility], patient was HDS, however noted with significant bru ising and edema of LUE. Reportedly, trauma surgery was consulted at [place] and there was initially concern for compartment syndrome and fasciotomy was considered, but ultimately did not occur at the time. The trauma attending Dr. Du recommended orthopedic consultation upon arrival to the [facility] MICU. While at [place] labs significant for indirect hyperbilirubinemia, and acute macrocytic anemia 6.9 requiring 1u pRBC and [address] Abd/Pelvis W/ Contrast showed liver cirrhosis and steatosis without CBD dilation. Received morphine, ceftriaxone, protonix, thiamine. Started on NS for rhabdo. Patient transferred to [facility] for tertiary center care. While in the [facility] MICU, Ortho following - request MR Nadia elbow for assessment of possible complete vspartial L biceps tendon rupture. Corpak placed for nutrition and medications due to encephalopathy.Hematology following, who recommended prednisone 1mg/kg, daily labs and to monitor RBC transfusion protocol given patient currently HDS and suspected autoimmune anemia. US Spleen wnls. Gastroenterology following due to acute alcoholic hepatitis, (MDF 43) and Cirrhosis. On 01/08, patient with worsening agitation requiring precidex gtt and Clonidine patch. 01/12-Patient is drowsy but AOX3, currently maxed out on Precedex drip and PRN ativan Most Recent Events Subjective: This AM, oriented AO X 3 but drowsy Current Medications rifaximin 550 mg 2x Daily esomeprazole 40 mg 2x Daily prednisoLONE 70 mg Daily lactulose 20 g 2x Daily multivitamins with minerals 15 mL Daily vitamin B-12 500 mcg Daily cloNIDine 0.1 mg Q7 Days folic acid 1 mg Daily vitamin B-1 100 mg Daily dexmedetomidine (PRECEDEX) IV infusion orderable 1.4 mcg/kg/hr (01/13/22899) Tube feed 20 mL/hr at 01/09/22 1500 lactated ringers 150 mL/hr at 01/13/22899 acetaminophen 500 mg Q6H PRN LORazepam 2 mg Q2H PRN Objective Patient Vitals for the past 24 hrs: BP Temp Temp src Pulse Resp SpO2 O2 Device 01/13/22899 135/72 -- -- 81 16 90 % Room air 01/13/22 0830 -- -- -- 85 18 88 % Room air 01/13/22799 132/72 -- -- 85 17 92 % Room air 01/13/22 0728 -- 98.4 F (36.9 C) Axillary -- -- -- -- 01/13/22699 139/74 -- -- 88 18 90 % -- 01/13/22 06 136/70 -- -- 84 17 93 % -- 01/13/22 0500 144/75 -- -- 84 14 95 % -- 01/13/22 0400 154/87 -- -- 92 19 91 % Room air 01/13/22 0300 149/76 -- -- 92 22 92 % -- 01/13/22 0200 160/91 -- -- 88 15 92 % -- 01/13/22 0100 157/85 -- -- 80 15 91 % -- 01/13/22 0000 141/76 98.1 F (36.7 C) Axillary 81 17 92 % Room air 01/12/22 2300 162/84 -- -- 81 15 95 % -- 01/12/22 2200 146/93 -- -- 92 16 92 % -- 01/12/22 2100 149/82 -- -- 86 17 93 % -- 01/12/22 2000 151/80 -- -- 85 18 94 % Room air 01/12/22 1923 -- 100.3 F (37.9 C) Oral -- -- -- -- 01/12/22 1900 113/77 -- -- 110 23 95 % -- 01/12/22 1800 126/69 -- -- 103 24 93 % -- 01/12/22 1700 122/98 -- -- 97 20 94 % -- 01/12/22 1643 -- -- -- 115 -- -- -- 01/12/22 1600 138/77 -- -- 96 18 97 % Room air 01/12/22 1500 126/42 -- -- 93 18 96 % -- 01/12/22 1400 136/83 -- -- 94 16 96 % -- 01/12/22 1300 139/79 -- -- 92 17 95 % -- 01/12/22 1200 155/86 -- -- 92 19 95 % Room air 01/12/22 1112 -- 99.5 F (37.5 C) Oral -- -- -- -- 01/12/22 1100 144/82 -- -- 90 19 95 % -- Ins & Outs Admission Weight Weight: 147 lb 11.3 oz (67 kg) Today's Weight Weight: 131 lb 6.3 oz (59.6 kg) BMI 20.58 Change in Weight: Current value is 131.4 lb (59.599 kg) on 01/13/2022 at 0600 -17.6 lb (-8.000 kg) (-11.83 %) from 149.0 lb (67.599 kg) on 01/12/2022 at 0600 (previous value) -16.3 lb (-7.400 kg) (-11.04 %) from 147.7 lb (66.999 kg) on 01/08/2022 at 0800 (first value for this admission) Intake/Output Summary (Last 24 hours) at 01/13/2022 1037 Last data filed at 01/13/2022 0900 Gross per 24 hour Intake 6561.51 ml Output 7605 ml Net -1043.49 ml In: 7354.9 (123.4 mL/kg) [P.O.:1220; I.V.:4164.9 (2.9 mL/kg/hr)] Out: 8075 (135.5 mL/kg) [Urine:7775 (5.4 mL/kg/hr)] Net: -720.1 Weight: 59.6 kg Peripheral IV Access: 01/07/22 Right Forearm Present on Arrival to Hospital (Active) Site Assessment WNL;Dressing intact 01/09/22 0400 Infusion Status Port #1 Infusing;Patent 01/09/22 0400 Number of days: 2 Peripheral IV Access: 01/08/22 Right Hand Present on Arrival to Hospital (Active) Site Assessment WNL;Dressing intact 01/09/22 0400 Infusion Status Port #1 Capped;Patent;Positive blood return 01/09/22 0400 Number of days: 1 External Urinary Collection (Active) Site Assessment WNL 01/09/22 0400 Collection Type Drainage bag 01/09/22 0400 Catheter Care Catheter tube secured 01/09/22 0400 Change Date 01/09/22 01/09/22 0000 Change Time 0000 01/09/22 0000 Urine (ml) 95 01/09/22 0600 Number of days: 0 Physical Exam Physical Exam Constitutional: Appearance: Normal appearance. HENT: Head: Normocephalic and atraumatic. Nose: Nose normal. No congestion. Mouth/Throat: Mouth: Mucous membranes are moist. Pharynx: Oropharynx is clear. Eyes: General: Scleral icterus present. Extraocular Movements: Extraocular movements intact. Cardiovascular: Rate and Rhythm: Normal rate and regular rhythm. Pulses: Normal pulses. Heart sounds: No murmur heard. Pulmonary/Chest/Breast: Effort normal. He has no wheezes. He has no rhonchi. He has no rales. Abdominal: General: Abdomen is flat. Bowel sounds are normal. There is no distension. Palpations: Abdomen is soft. Tenderness: There is no abdominal tenderness. Musculoskeletal: General: Swelling (Left upper extremity and hand ) present. Normal range of motion. Cervical back: Normal range of motion and neck supple. Right lower leg: No edema. Left lower leg: No edema. Neurological: General: No focal deficit present. Mental Status: He is alert and oriented to person, place, and time. Skin: General: Skin is warm and dry. Coloration: Skin is jaundiced. Psychiatric: Mood and Affect: Mood normal. Behavior: Behavior normal. Vitals and nursing note reviewed. Labs Arterial Blood Gases None CBC/PT/INR WBC RBC Hgb Hct MCV RDW Plt PT aPTT INR 01/13/22 0252 7.3 1.76 6.7 19.3 110 24.4 67 01/13/22 0252 2.05 01/12/22 1655 7.8 1.73 6.6 19.5 113 25.3 69 01/12/22 0341 2.12 01/12/22 0340 8.0 1.72 6.5 18.7 109 25.4 59 01/11/22 1430 7.2 1.61 6.2 17.6 109 24.8 88 01/11/22 0116 7.3 1.54 5.9 16.7 108 23.6 62 01/11/22 0116 2.16 01/10/22 1612 29 01/10/22 1131 5.4 1.79 6.8 19.1 107 23.8 93 WBC/Diff Neutro% Segs% Bands% Lymphs% Monos% Eos% Basos% 01/13/22 0252 69.0 8 15.0 1.0 01/12/22 1655 74.0 3 8.0 12.0 01/12/22 0340 66.4 20.7 11.3 0.9 0.7 01/11/22 1430 78.0 3 10.0 7.0 2.0 01/11/22 0116 73.3 12.7 13.3 0.2 0.5 01/10/22 1131 75.3 12.7 10.6 0.1 1.2 Basic Metabolic Panel Na K Cl CO2 Gap Glu BUN Cr Ca Mg PO4 01/13/22 0252 135 3.4 99 29 10 130 6 0.40 Comment: Grossly icteric; may falsely decrease creatinine 8.1 01/12/22 0341 132 3.2 98 26 11 147 6 0.39 Comment: Grossly icteric; may falsely decrease creatinine 7.9 01/11/22 0116 2.0 01/11/22 011 133 3.4 101 25 10 149 5 0.43 Comment: Grossly icteric; may falsely decrease creatinine 8.0 01/10/22 1626 1.7 01/10/22 1626 134 3.5 99 22 17 165 4 0.60 Comment: Grossly icteric; may falsely decrease creatinine 8.6 Creatinine clearance from Cockroft-Gault: 213 ml/min using actual weight 59.6 kg (IBW 66.1 kg ignored) GFR from MDRD: greater than 60 age 36 yr, cr=0.40 on 01/13/2022, race White LFT's (last 3 years, up to 5 values) (Last 5 results in the past 3 years) T Prot Albumin D Bili T Bili Alk Phos ALT AST 01/13/22 0252 6.2 2.6 2.10 11.4 Comment: Elevated bilirubin may falsely lower creatinine 169 63 124 01/12/22 0341 6.4 2.6 2.10 11.1 Comment: Elevated bilirubin may falsely lower creatinine 148 61 131 01/11/22 0116 5.7 2.6 2.20 11.4 Comment: Elevated bilirubin may falsely lower creatinine 95 57 143 01/10/22 0353 6.0 2.7 2.60 11.1 Comment: Elevated bilirubin may falsely lower creatinine 87 54 147 01/09/22 0348 6.0 2.7 2.50 11.2 Comment: Elevated bilirubin may falsely lower creatinine 92 47 124 Cardiac None Fingerstick Glucose Glucose 01/13/22 0935 152 Comment: Notified IRENA NICHOLAS MD 01/13/22 0255 140 01/12/22 2217 140 INR (no units) Date Value 01/13/2022 2.05 (H) 01/12/2022 2.12 (H) 01/11/2022 2.16 (H) 01/10/2022 1.79 (H) 01/09/2022 1.94 (H) TSH (uIU/mL) Date Value 01/08/2022 6.627 (H) No results found for: HBA1C Lipids (last 3 years, up to 5 values) Chol- esterol TG HDL LDL Chol / HDL LDL / HDL Non HDL 01/08/22 1524 341 266 30 277 11.37 9.23 311 Cultures Blood Culture Blood culture 01/09/22 1105 No growth to date, culture reincubated [P] 01/09/22 1105 No growth to date, culture reincubated [P] [P] - Preliminary Result Urine Culture None Respiratory Culture, Misc None Pyogen Culture None Reticulocyte index = 1.24; this indicates hypoproliferation. Imaging US ASCITES 5/4 IMPRESSION: No evidence of ascites. US RUQ US 5/ IMPRESSION: 1. Cirrhosis with severe hepatic steatosis. 2. Focal asymmetric gallbladder wall thickening most suggestive of adenomyosis. Gallbladder sludge.No pericholecystic fluid or sonographic Galeano's sign to suggest acute cholecystitis. 3. Normal size common bile duct measuring 5 mm. Mild intrahepatic biliary dilatation is noted. CXR 5/ Impression: CorPak tube is in the antrum. Examination is otherwise limited. Consults GI Ortho Resident's Assessment/Plan 36 male with past medical history of Alcohol use disorder, who presented tot ED with complaints of LUE swelling and pain. Patient ultimately found to have acute alcoholic hepatitis and therefore was admitted to the MICU. 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 DDx favors hemolysis - could be from hematoma formation from his injuries vs autoimmune, vs. viral hepatitis, less likely No ascites on US ascites survey RUQ US - c/w cirrhosis, also found focal GB wall thickening c/w adenomyosis (a benign finding persearch). CBD is normal 5mm. Mild interhepatic biliary dilatation. - LDH elevated, low haptoglobin c/w hemolysis. retic index is lower (likely bone marrow suppressionfrom EtOH). 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 In the setting of this, will hold on additional transfusions as pt is HDS. Will consult hematology on further recommendations. Plan: - Daily PT/INR - GI consulted, appreciate recs - 2 Large bore PIVs - Transfuse if HB < 5 or if symptomatic. - Lactulose BID and rifaximin 550 mg bid - Prednisolone 1mg/kg (treatment for autoimmune hemolytic anemia) - Folic acid and thiamine supplementation daily - Vitamin K per GI, 1 dose remaining # Acute macrocytic anemia, Autoimmune suspected No overt GIB. s/p 1u pRBC from [place], did not increment appropriately - only 6.9 --> 7.2 after the unitof blood. - LDH elevated, low haptoglobin c/w hemolysis. retic index is lower (likely bone marrow suppressionfrom etoh). 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 In the setting of this, will hold on additional transfusions as pt is HDS. Will consult hematology on further recommendations. Plan: - CBC's daily - 2 Large bore PIVs - Transfuse if HB < 5 or if symptomatic. -TSH elevated, but subsequent T4 wnl -- subclinical hypothyroidism. - Prednisolone 1mg/kg daily - Maintain Nexium 40mg IV BID # LUE swelling 2/2 trauma Plan: - Ortho consulted, appreciate recs: no fx on plain films. 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 Last dose 01/12. - Skin care #Systolic murmur Likely flow murmur Plan: - Monitor for now. # Malnutrition Goal glc 140-180, check POCT Glucose q6h while NPO TSH elevated, but subsequent T4 wnl -- subclinical hypothyroidism. Due to encephalopathy from etoh wdl, Plan: - Corpak placed, start tube feeds # Rhabdomyolysis - mild -CK 700's --> 1000 --->300 Plan: - LR @ 150cc/h F (feeding/fluids): TF A (analgesia): Tylenol with 2g daily limit. S (sedation): Precidex T (thromoboprophylaxis): SCDs H (head up position): 30 degrees due to risk for aspiration U (ulcer prophylaxis): Nexium BID G (glycemic control): As above S (spontaneous breathing trial): n/a B (bowel care): Lactulose I ( Invasive): none D (deescalation of antibiotics): Ceftriaxone Social- Dad Rich [phone] and mom Code Status: Full Code Dispo: MICU Plan is preliminary until discussed with attending Keo Gaona MD PGY-2 * Leon Santana MD - 01/13/2022 10:12 AM EDT Images from the original note were not included. MICU ATTENDING NOTE LEON SANTANA MD - PIN [id number] I saw and evaluated the patient. I personally obtained the ferraro and critical portions of the historyand physical examination. I reviewed the resident's documentation and discussed the patient with the resident. I agree with the resident's medical decision making as documented in the resident's note. This patient has a high probability of sudden, clinically significant deterioration, which requiresthe highest level of physician preparedness to intervene urgently. I managed/supervised life or organ supporting interventions that required frequent physician assessment. Time I spent with family or surrogate(s) is included only if the patient was incapable of providing the necessary information or participating in medical decision making. Time devoted to teaching and to any procedures I billed separately is not included. I spent 31 critical care minutes of my full attention on this patient's management and direct patient care. Of note, medical issues requiring critical care management include: ACUTE BLOOD LOSS ANEMIA and GARMENT STEAMER FAILURE. HEPATIC FAILURE . Additional findings and notation: Will Anderson is a 36 year old man with EtOH use disorder 01/08/2022 with traumatic arm injury and found to have acute liver injury and acute hemolytic anemia. BP 135/72 (BP Location: right forearm) Pulse 81 Temp 98.4 F (36.9 C) (Axillary) Resp 16 Ht 5' 7 (1.702 m) Wt 131 lb 6.3 oz (59.6 kg) SpO2 90% BMI 20.58 kg/m on room air Intake/Output Summary (Last 24 hours) at 01/13/2022 1012 Last data filed at 01/13/2022 0900 Gross per 24 hour Intake 6561.51 ml Output 7605 ml Net -1043.49 ml Encephalopathic Arterial Blood Gases None Basic Metabolic Panel Na K Cl CO2 Gap Glu BUN Cr Ca Mg PO4 01/13/22 0252 135 3.4 99 29 10 130 6 0.40 Comment: Grossly icteric; may falsely decrease creatinine 8.1 01/12/22 0341 132 3.2 98 26 11 147 6 0.39 Comment: Grossly icteric; may falsely decrease creatinine 7.9 01/11/22 0116 2.0 01/11/22 0116 133 3.4 101 25 10 149 5 0.43 Comment: Grossly icteric; may falsely decrease creatinine 8.0 01/10/22 1626 1.7 01/10/22 1626 134 3.5 99 22 17 165 4 0.60 Comment: Grossly icteric; may falsely decrease creatinine 8.6 Hepatic/Biliary/Pancreas T Prot Albumin D Bili T Bili Alk Phos ALT AST Amylase Lipase 01/13/22251 6.2 2.6 2.10 11.4 Comment: Elevated bilirubin may falsely lower creatinine 169 63 124 01/12/22 0341 6.4 2.6 2.10 11.1 Comment: Elevated bilirubin may falsely lower creatinine 148 61 131 01/11/22 0116 5.7 2.6 2.20 11.4 Comment: Elevated bilirubin may falsely lower creatinine 95 57 143 CBC/PT/INR WBC RBC Hgb Hct MCV RDW Plt PT aPTT INR 01/13/22251 7.3 1.76 6.7 19.3 110 24.4 67 01/13/22 0252 2.05 01/12/22 1655 7.8 1.73 6.6 19.5 113 25.3 69 01/12/22 0341 2.12 01/12/22 0340 8.0 1.72 6.5 18.7 109 25.4 59 01/11/22 1430 7.2 1.61 6.2 17.6 109 24.8 88 01/11/22 0116 7.3 1.54 5.9 16.7 108 23.6 62 01/11/22 0116 2.16 01/10/22 1612 29 01/10/22 1131 5.4 1.79 6.8 19.1 107 23.8 93 WBC/Diff Neutro% Segs% Bands% Lymphs% Monos% Eos% Basos% 01/13/22 0252 69.0 8 15.0 1.0 01/12/22 1655 74.0 3 8.0 12.0 01/12/22 0340 66.4 20.7 11.3 0.9 0.7 01/11/22 1430 78.0 3 10.0 7.0 2.0 01/11/22 0116 73.3 12.7 13.3 0.2 0.5 01/10/22 1131 75.3 12.7 10.6 0.1 1.2 rifaximin 550 mg 2x Daily esomeprazole 40 mg 2x Daily prednisoLONE 70 mg Daily lactulose 20 g 2x Daily Water flush (Hydration) 120 mL QID (ENAR) multivitamins with minerals 15 mL Daily vitamin B-12 500 mcg Daily cloNIDine 0.1 mg Q7 Days folic acid 1 mg Daily vitamin B-1 100 mg Daily dexmedetomidine (PRECEDEX) IV infusion orderable 1.4 mcg/kg/hr (01/13/22 0900) Tube feed 20 mL/hr at 01/09/22 1500 lactated ringers 150 mL/hr at 01/13/22 0900 A/P: +) Acute alcoholic hepatitis/Cirrhosis/Encophalopathy -- Maddrey's DF 42 On steroids for hemolytic anemia and alcoholic hepatitis PPI No ascites present Lactulose/rifaximin +) AIHA -- Labs confounded by cirrhosis, but AIHA by active hemolysis, positive AYLIN Appreciate Heme-Onc assistance Prednisilone 1 mg/kg/day Work-up as per Heme-Onc recommendations Transfuse for symptomatic anemia or < 5 Folic acid +) Thrombocytopenia/Coagulopathy -- Cirrhosis, EtOH Received vitamin K Supportive care +) EtOH withdrawal -- Thiamine/folate CIWA Dexmedetomidine 1.4 mcg/kg/hour + lorazepam 2 mg prn +) Sepsis -- Possible cellulitis of chest wall Ceftriaxone completed 5 days +) Nutrition -- Tube feeds +) PT/OT -- +) Sedation/Analgesia -- +) DVT/GI prophylaxis -- SCDs PPI +) Lines/Catheters -- PIVs No Rosales +) Social/Goals of Care -- Parents Code Status: Full Code Leon Santana M.D. Director, Pulmonary, Critical Care and Sleep Medicine [facility] * Codi Thurman LSW - 01/13/2022 9:49 AM EDT ICU Note: SW continues to follow for positive screen for low risk suicide and abuse. SW spoke with bedside RN who reported pt alert but drowsy. SW to follow up with pt to attempt to address. SARAH [facility] Care Coordination Department 10:59 AM Addendum: SW met with pt at bedside. Pt sleeping upon SW entering room. Pt restrained, with mits. SW did not awake to name being called several times. SW will follow up with pt as appropriate to address. SARAH Kelley Care Coordination Department * Elizabeth Unger RN - 01/13/2022 3:45 AM EDT 0345: Dr. Leggett notified via secure chat of critical Hematocrit and Hemoglobin value of 19.[address] Leggett read back critical result. New orders not received * Malina Sen RN - 01/12/2022 5:[address] Trujillo notified of critical Hematocrit and Hemoglobin value of 19.[address] Trujillo read back critical result. New orders not received. * Leon Santana MD - 01/12/2022 9:36 AM EDT Images from the original note were not included. MICU ATTENDING NOTE LEON SANTANA MD - PIN [id number] I saw and evaluated the patient. I personally obtained the ferraro and critical portions of the historyand physical examination. I reviewed the resident's documentation and discussed the patient with the resident. I agree with the resident's medical decision making as documented in the resident's note. This patient has a high probability of sudden, clinically significant deterioration, which requiresthe highest level of physician preparedness to intervene urgently. I managed/supervised life or organ supporting interventions that required frequent physician assessment. Time I spent with family or surrogate(s) is included only if the patient was incapable of providing the necessary information or participating in medical decision making. Time devoted to teaching and to any procedures I billed separately is not included. I spent 31 critical care minutes of my full attention on this patient's management and direct patient care. Of note, medical issues requiring critical care management include: ACUTE BLOOD LOSS ANEMIA and GARMENT STEAMER FAILURE, HEPATIC FAILURE. Additional findings and notation: Will Anderson is a 36 year old man with EtOH use disorder 01/08/2022 with traumatic arm injury and found to have acute liver injury and acute hemolytic anemia. BP 142/77 Pulse 87 Temp 98.3 F (36.8 C) (Axillary) Resp 17 Ht 5' 7 (1.702 m) Wt 149 lb 0.5 oz (67.6 kg) SpO2 95% BMI 23.34 kg/m on room air Intake/Output Summary (Last 24 hours) at 01/12/2022 0936 Last data filed at 01/12/2022 0900 Gross per 24 hour Intake 6389.53 ml Output 7830 ml Net -1440.47 ml Encephalopathic Arterial Blood Gases None Basic Metabolic Panel Na K Cl CO2 Gap Glu BUN Cr Ca Mg PO4 01/12/22 0341 132 3.2 98 26 11 147 6 0.39 Comment: Grossly icteric; may falsely decrease creatinine 7.9 01/11/22 0116 2.0 01/11/22 0116 133 3.4 101 25 10 149 5 0.43 Comment: Grossly icteric; may falsely decrease creatinine 8.0 01/10/22 1626 1.7 01/10/22 1626 134 3.5 99 22 17 165 4 0.60 Comment: Grossly icteric; may falsely decrease creatinine 8.6 01/10/22 0353 133 4.0 101 27 9 172 9 0.44 Comment: Grossly icteric; may falsely decrease creatinine 8.4 Hepatic/Biliary/Pancreas T Prot Albumin D Bili T Bili Alk Phos ALT AST Amylase Lipase 01/12/22340 6.4 2.6 2.10 11.1 Comment: Elevated bilirubin may falsely lower creatinine 148 61 131 01/11/22 0116 5.7 2.6 2.20 11.4 Comment: Elevated bilirubin may falsely lower creatinine 95 57 143 01/10/22 0353 6.0 2.7 2.60 11.1 Comment: Elevated bilirubin may falsely lower creatinine 87 54 147 CBC/PT/INR WBC RBC Hgb Hct MCV RDW Plt PT aPTT INR 01/12/22 0341 2.12 01/12/22 0340 8.0 1.72 6.5 18.7 109 25.4 59 01/11/22 1430 7.2 1.61 6.2 17.6 109 24.8 88 01/11/22 0116 7.3 1.54 5.9 16.7 108 23.6 62 01/11/22 0116 2.16 01/10/22 1612 29 01/10/22 1131 5.4 1.79 6.8 19.1 107 23.8 93 01/10/22 0353 4.7 1.80 6.8 19.2 106 23.4 58 01/10/22 0353 1.79 01/09/22 1722 3.7 1.76 6.4 18.4 105 23.7 56 WBC/Diff Neutro% Segs% Bands% Lymphs% Monos% Eos% Basos% 01/12/22 0340 66.4 20.7 11.3 0.9 0.7 01/11/22 1430 78.0 3 10.0 7.0 2.0 01/11/22 0116 73.3 12.7 13.3 0.2 0.5 01/10/22 1131 75.3 12.7 10.6 0.1 1.2 01/10/22 0353 72.9 15.4 9.7 0.6 1.4 01/09/22 1722 64.8 19.4 13.7 1.5 0.7 cefTRIAXone orderable 2,000 mg Q24H Antibiotic esomeprazole 40 mg 2x Daily prednisoLONE 70 mg Daily lactulose 20 g 2x Daily Water flush (Hydration) 120 mL QID (ENAR) multivitamins with minerals 15 mL Daily vitamin B-12 500 mcg Daily cloNIDine 0.1 mg Q7 Days folic acid 1 mg Daily vitamin B-1 100 mg Daily dexmedetomidine (PRECEDEX) IV infusion orderable 1.2 mcg/kg/hr (01/12/22 0900) Tube feed 20 mL/hr at 01/09/22 1500 lactated ringers 150 mL/hr at 01/12/22 0900 A/P: +) Acute alcoholic hepatitis/Cirrhosis/Encophalopathy -- Maddrey's DF 42 On steroids for hemolytic anemia and alcoholic hepatitis PPI No ascites present Lactulose, add rifaximin GI following +) AIHA -- Labs confounded by cirrhosis, but AIHA by active hemolysis, positive AYLIN Appreciate Heme-Onc assistance Prednisilone 1 mg/kg/day Work-up as per Heme-Onc recommendations Transfuse for symptomatic anemia or < 5 Folic acid +) Thrombocytopenia/Coagulopathy -- Cirrhosis, EtOH Received vitamin K Supportive care +) EtOH withdrawal -- Thiamine/folate CIWA Dexmedetomidine 1.2 mcg/kg/hour + lorazepam 2 mg prn (has not needed in > 24 hours) +) Sepsis -- Possible cellulitis of chest wall Ceftriaxone day 01/09 +) Nutrition -- Tube feeds +) PT/OT -- +) Sedation/Analgesia -- +) DVT/GI prophylaxis -- SCDs PPI +) Lines/Catheters -- PIVs No Rosales +) Social/Goals of Care -- Parents Code Status: Full Code Leon Santana M.D. Director, Pulmonary, Critical Care and Sleep Medicine [facility] * Keo Gaona MD - 01/12/2022 8:32 AM EDT Images from the original note were not included. [facility] Intensive Care Unit Critical Care Progress Note Will Anderson 36 year old 149.96569 lbs MRN/Room: [id number]/3-303/1 Length of stay: 4 day(s) Summary 36M hx EtOH use d/o, HLA-B27 positive who initially presented on 01/07/2021 to OSH with LUE edema, pain, bruising s/p trauma. 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 Progressive swelling. Pt also noticed his skin was yellow x 1 day. While at [facility], patient was HDS, however noted with significant bru ising and edema of LUE. Reportedly, trauma surgery was consulted at [place] and there was initially concern for compartment syndrome and fasciotomy was considered, but ultimately did not occur at the time. The trauma attending Dr. Du recommended orthopedic consultation upon arrival to the [facility] MICU. While at [place] labs significant for indirect hyperbilirubinemia, and acute macrocytic anemia 6.9 requiring 1u pRBC and [address] Abd/Pelvis W/ Contrast showed liver cirrhosis and steatosis without CBD dilation. Received morphine, ceftriaxone, protonix, thiamine. Started on NS for rhabdo. Patient transferred to [facility] for tertiary center care. While in the [facility] MICU, Ortho following - request MR Nadia elbow for assessment of possible complete vspartial L biceps tendon rupture. Corpak placed for nutrition and medications due to encephalopathy.Hematology following, who recommended prednisone 1mg/kg, daily labs and to monitor RBC transfusion protocol given patient currently HDS and suspected autoimmune anemia. US Spleen wnls. Gastroenterology following due to acute alcoholic hepatitis, (MDF 43) and Cirrhosis. On 01/08, patient with worsening agitation requiring precidex gtt and Clonidine patch. Most Recent Events Subjective: Mentation and orientation stable today from 1 day prior. However still not back at baseline. This AM, oriented AO X 4 Current Medications cefTRIAXone orderable 2,000 mg Q24H Antibiotic esomeprazole 40 mg 2x Daily prednisoLONE 70 mg Daily lactulose 20 g 2x Daily Water flush (Hydration) 120 mL QID (ENAR) multivitamins with minerals 15 mL Daily vitamin B-12 500 mcg Daily cloNIDine 0.1 mg Q7 Days folic acid 1 mg Daily vitamin B-1 100 mg Daily dexmedetomidine (PRECEDEX) IV infusion orderable 1.2 mcg/kg/hr (01/12/22 08) Tube feed 20 mL/hr at 01/09/22 1500 lactated ringers 150 mL/hr at 01/12/22 0800 acetaminophen 500 mg Q6H PRN LORazepam 2 mg Q2H PRN Objective Patient Vitals for the past 24 hrs: BP Temp Temp src Pulse Resp SpO2 O2 Device 01/12/22799 -- -- -- -- -- -- Room air 01/12/22730 -- 98.3 F (36.8 C) Axillary -- -- -- -- 01/12/22 07 137/78 -- -- 88 18 97 % -- 01/12/22 0600 130/104 -- -- 103 26 97 % -- 01/12/22 0513 141/90 -- -- 92 20 100 % -- 01/12/22 0500 -- -- -- 90 13 97 % -- 01/12/22 0400 120/79 97.8 F (36.6 C) Axillary 92 18 98 % Room air 01/12/22 0300 145/82 -- -- 83 15 96 % -- 01/12/22 0200 149/86 -- -- 89 15 95 % -- 01/12/22 0100 146/91 -- -- 84 14 95 % -- 01/12/22 0000 147/82 98.8 F (37.1 C) Axillary 87 17 97 % Room air 01/11/22 2300 150/86 -- -- 87 17 95 % -- 01/11/22 2200 156/88 -- -- 87 17 96 % -- 01/11/222112 -- -- -- 91 16 94 % -- 01/11/22 2100 147/82 -- -- 91 20 -- -- 01/11/222012 -- -- -- 99 24 99 % -- 01/11/221999 143/79 99 F (37.2 C) Axillary 93 21 -- -- 01/11/22 1900 151/79 -- -- 95 23 98 % -- 01/11/22 1800 150/73 -- -- 89 20 100 % -- 01/11/22 1700 148/74 -- -- 92 20 97 % -- 01/11/22 1600 162/84 -- -- 92 17 97 % Room air 01/11/22 1543 -- 99.5 F (37.5 C) Axillary -- -- -- -- 01/11/22 1500 157/90 -- -- 91 19 99 % -- 01/11/22 1400 112/61 -- -- 100 19 93 % -- 01/11/22 1300 150/63 -- -- 102 28 100 % -- 01/11/22 1200 136/75 -- -- 85 19 94 % Room air 01/11/22 1116 -- 98.3 F (36.8 C) Axillary -- -- -- -- 01/11/22 1100 144/81 -- -- 90 20 99 % -- 01/11/22 1000 131/68 -- -- 88 21 94 % -- 01/11/22 0900 129/62 -- -- 89 18 94 % -- Ins & Outs Admission Weight Weight: 147 lb 11.3 oz (67 kg) Today's Weight Weight: 149 lb 0.5 oz (67.6 kg) BMI 23.34 Change in Weight: Current value is 149.0 lb (67.599 kg) on 01/12/2022 at 0600 -2.4 lb (-1.100 kg) (-1.60 %) from 151.5 lb (68.699 kg) on 01/11/2022 at 0600 (previous value) +1.3 lb (0.600 kg) (0.90 %) from 147.7 lb (66.999 kg) on 01/08/2022 at 0800 (first value for this admission) Intake/Output Summary (Last 24 hours) at 01/12/2022 0832 Last data filed at 01/12/2022 0800 Gross per 24 hour Intake 6312.93 ml Output 7180 ml Net -867.07 ml In: 5826.2 (86.2 mL/kg) [I.V.:3966.2 (2.4 mL/kg/hr)] Out: 7180 (106.2 mL/kg) [Urine:6180 (3.8 mL/kg/hr)] Net: -1353.8 Weight: 67.6 kg Peripheral IV Access: 01/07/22 Right Forearm Present on Arrival to Hospital (Active) Site Assessment WNL;Dressing intact 01/09/22 0400 Infusion Status Port #1 Infusing;Patent 01/09/22 0400 Number of days: 2 Peripheral IV Access: 01/08/22 Right Hand Present on Arrival to Hospital (Active) Site Assessment WNL;Dressing intact 01/09/22 0400 Infusion Status Port #1 Capped;Patent;Positive blood return 01/09/22 0400 Number of days: 1 External Urinary Collection (Active) Site Assessment WNL 01/09/22 0400 Collection Type Drainage bag 01/09/22 0400 Catheter Care Catheter tube secured 01/09/22 0400 Change Date 01/09/22 01/09/22 0000 Change Time 0000 01/09/22 0000 Urine (ml) 95 01/09/22 0600 Number of days: 0 Physical Exam Physical Exam Constitutional: Appearance: Normal appearance. HENT: Head: Normocephalic and atraumatic. Nose: Nose normal. No congestion. Mouth/Throat: Mouth: Mucous membranes are moist. Pharynx: Oropharynx is clear. Eyes: General: Scleral icterus present. Extraocular Movements: Extraocular movements intact. Cardiovascular: Rate and Rhythm: Normal rate and regular rhythm. Pulses: Normal pulses. Heart sounds: No murmur heard. Pulmonary/Chest/Breast: Effort normal. He has no wheezes. He has no rhonchi. He has no rales. Abdominal: General: Abdomen is flat. Bowel sounds are normal. There is no distension. Palpations: Abdomen is soft. Tenderness: There is no abdominal tenderness. Musculoskeletal: General: Swelling (Left upper extremity and hand ) present. Normal range of motion. Cervical back: Normal range of motion and neck supple. Right lower leg: No edema. Left lower leg: No edema. Neurological: General: No focal deficit present. Mental Status: He is alert and oriented to person, place, and time. Skin: General: Skin is warm and dry. Coloration: Skin is jaundiced. Psychiatric: Mood and Affect: Mood normal. Behavior: Behavior normal. Vitals and nursing note reviewed. Labs Arterial Blood Gases None CBC/PT/INR WBC RBC Hgb Hct MCV RDW Plt PT aPTT INR 01/12/22 0341 2.12 01/12/22 0340 8.0 1.72 6.5 18.7 109 25.4 59 01/11/22 1430 7.2 1.61 6.2 17.6 109 24.8 88 01/11/22 0116 7.3 1.54 5.9 16.7 108 23.6 62 01/11/22 0116 2.16 01/10/22 1612 29 01/10/22 1131 5.4 1.79 6.8 19.1 107 23.8 93 01/10/22 0353 4.7 1.80 6.8 19.2 106 23.4 58 01/10/22 0353 1.79 01/09/22 1722 3.7 1.76 6.4 18.4 105 23.7 56 WBC/Diff Neutro% Segs% Bands% Lymphs% Monos% Eos% Basos% 01/12/22 0340 66.4 20.7 11.3 0.9 0.7 01/11/22 1430 78.0 3 10.0 7.0 2.0 01/11/22 011 73.3 12.7 13.3 0.2 0.5 01/10/22 1131 75.3 12.7 10.6 0.1 1.2 01/10/22 0353 72.9 15.4 9.7 0.6 1.4 01/09/22 1722 64.8 19.4 13.7 1.5 0.7 Basic Metabolic Panel Na K Cl CO2 Gap Glu BUN Cr Ca Mg PO4 01/12/22340 132 3.2 98 26 11 147 6 0.39 Comment: Grossly icteric; may falsely decrease creatinine 7.9 01/11/22 0116 2.0 01/11/22 011 133 3.4 101 25 10 149 5 0.43 Comment: Grossly icteric; may falsely decrease creatinine 8.0 01/10/22 1626 1.7 01/10/22 1626 134 3.5 99 22 17 165 4 0.60 Comment: Grossly icteric; may falsely decrease creatinine 8.6 01/10/22 0353 133 4.0 101 27 9 172 9 0.44 Comment: Grossly icteric; may falsely decrease creatinine 8.4 Creatinine clearance from Cockroft-Gault: 242 ml/min using IBW 66.1 kg (actual weight 67.6 kg ignored) GFR from MDRD: greater than 60 age 36 yr, cr=0.39 on 01/12/2022, race White LFT's (last 3 years, up to 5 values) (Last 5 results in the past 3 years) T Prot Albumin D Bili T Bili Alk Phos ALT AST 01/12/22 0341 6.4 2.6 2.10 11.1 Comment: Elevated bilirubin may falsely lower creatinine 148 61 131 01/11/22 0116 5.7 2.6 2.20 11.4 Comment: Elevated bilirubin may falsely lower creatinine 95 57 143 01/10/22 0353 6.0 2.7 2.60 11.1 Comment: Elevated bilirubin may falsely lower creatinine 87 54 147 01/09/22 0348 6.0 2.7 2.50 11.2 Comment: Elevated bilirubin may falsely lower creatinine 92 47 124 01/08/22 0853 6.4 2.9 2.40 11.1 Comment: Elevated bilirubin may falsely lower creatinine 121 50 129 Cardiac None Fingerstick Glucose Glucose 01/12/22 0339 157 Comment: Follow Protocol 01/11/22 2125 167 Comment: Follow Protocol INR (no units) Date Value 01/12/2022 2.12 (H) 01/11/2022 2.16 (H) 01/10/2022 1.79 (H) 01/09/2022 1.94 (H) 01/08/2022 1.78 (H) TSH (uIU/mL) Date Value 01/08/2022 6.627 (H) No results found for: HBA1C Lipids (last 3 years, up to 5 values) Chol- esterol TG HDL LDL Chol / HDL LDL / HDL Non HDL 01/08/22 1524 341 266 30 277 11.37 9.23 311 Cultures Blood Culture Blood culture 01/09/22 1105 No growth to date, culture reincubated [P] 05/05/22 1105 No growth to date, culture reincubated [P] [P] - Preliminary Result Urine Culture None Respiratory Culture, Misc None Pyogen Culture None Reticulocyte index = 1.24; this indicates hypoproliferation. Imaging US ASCITES 01/08 IMPRESSION: No evidence of ascites. US RUQ US 01/08 IMPRESSION: 1. Cirrhosis with severe hepatic steatosis. 2. Focal asymmetric gallbladder wall thickening most suggestive of adenomyosis. Gallbladder sludge.No pericholecystic fluid or sonographic Galeano's sign to suggest acute cholecystitis. 3. Normal size common bile duct measuring 5 mm. Mild intrahepatic biliary dilatation is noted. CXR 01/09 Impression: CorPak tube is in the antrum. Examination is otherwise limited. Consults GI Ortho Resident's Assessment/Plan 36 male with past medical history of Alcohol use disorder, who presented tot ED with complaints of LUE swelling and pain. Patient ultimately found to have acute alcoholic hepatitis and therefore was admitted to the MICU. 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 DDx favors hemolysis - could be from hematoma formation from his injuries vs autoimmune, vs. viral hepatitis, less likely No ascites on US ascites survey RUQ US - c/w cirrhosis, also found focal GB wall thickening c/w adenomyosis (a benign finding persearch). CBD is normal 5mm. Mild interhepatic biliary dilatation. - LDH elevated, low haptoglobin c/w hemolysis. retic index is lower (likely bone marrow suppressionfrom EtOH). 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 In the setting of this, will hold on additional transfusions as pt is HDS. Will consult hematology on further recommendations. Plan: - Daily PT/INR - GI consulted, appreciate recs - 2 Large bore PIVs - Currently holding on blood transfusions dispite Hgb < 7 due to patient being HDS and suspectedautoimmune anemia - Lactulose BID; and rifaximin 550 mg bid - Prednisolone 1mg/kg (treatment for autoimmune hemolytic anemia) - Folic acid and thiamine supplementation daily - Vitamin K per GI, 1 dose remaining # Acute macrocytic anemia, Autoimmune suspected No overt GIB. s/p 1u pRBC from Meet, did not increment appropriately - only 6.9 --> 7.2 after the unitof blood. - LDH elevated, low haptoglobin c/w hemolysis. retic index is lower (likely bone marrow suppressionfrom etoh). 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 In the setting of this, will hold on additional transfusions as pt is HDS. Will consult hematology on further recommendations. Plan: - CBC's q12 hours - 2 Large bore PIVs - Currently holding on blood transfusions dispite Hgb < 7 due to patient being HDS and suspectedautoimmune anemia -TSH elevated, but subsequent T4 wnl -- subclinical hypothyroidism. - Prednisolone 1mg/kg daily - Maintain Nexium 40mg IV BID # LUE swelling 2/2 trauma Plan: - Ortho consulted, appreciate recs: no fx on plain films. 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 Plan: - Monitor CIWA's - Ativan 2mg, q2h PRN for elevated CIWA's - Precedex gtt, wean as tolerated - Patient remains intermittently agitated on precedex gtt; in order to facilitate success of MR scan, will attempt to wean from precedex gtt and augment withdrawal tx with clonidine patch 0.1 mg (lowest dose) - Clonidine patch 0.1mg # Hypothermia # Concern for cellulitis of chest wall Less likely cellulitis given exam and CT findings, most suggestive of edema, however will empirically tx with ceftriaxone and monitor closely Plan: - Continue CTX given hypothermia noted this AM, may be a manifestation of infection, plan for 5 days of treatment if stable. - Skin care #Systolic murmur Likely flow murmur Plan: - Monitor for now. # Malnutrition Goal glc 140-180, check POCT Glucose q6h while NPO TSH elevated, but subsequent T4 wnl -- subclinical hypothyroidism. Due to encephalopathy from etoh wdl, Plan: - Corpak placed, start tube feeds # Rhabdomyolysis - mild -CK 700's --> 1000 --->300 Plan: - LR @ 150cc/h F (feeding/fluids): TF A (analgesia): Tylenol with 2g daily limit. S (sedation): Precidex T (thromoboprophylaxis): SCDs H (head up position): 30 degrees due to risk for aspiration U (ulcer prophylaxis): Nexium BID G (glycemic control): As above S (spontaneous breathing trial): n/a B (bowel care): Lactulose I ( Invasive): none D (deescalation of antibiotics): Ceftriaxone Social- Dad Rich [phone] and mom Code Status: Full Code Dispo: MICU Plan is preliminary until discussed with attending Keo Gaona MD PGY-2 * Margoth Jenkins RN - 01/11/2022 9:02 PM EDT 9:02 PM Patient has had greater than 1 liter of stool out since 0700. Dr. De La Vega notified. Instructed to hold PM dose of lactulose. Will continue to assess and monitor. 4:15 AM Core lab reported a critical hemoglobin and hematocrit of 6.[address] Leggett notified via secure chat. No new order at this time. Plan is transfuse if the Hemoglobin is less than 5. Will continue to assess and monitor. * Kasey Childers RN - 01/11/2022 2:53 PM EDT 2:53 PM /SARAH De La Vega notified of critical Hematocrit and Hemoglobin value of 6.2 and 17.6, respectively. /SARAH De La Vega viewed critical result via secure chat. New orders not received. * Abhinav De La Vega DO - 01/11/2022 7:42 AM EDT Images from the original note were not included. [facility] Medical Intensive Care Unit Critical Care Progress Note Will Anderson 36 year old 151.91588 lbs MRN/Room: [id number]/1 Length of stay: 3 day(s) Summary 36M hx EtOH use d/o, HLA-B27 positive who initially presented on 01/07/2021 to OSH with LUE edema, pain, bruising s/p trauma. 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 Progressive swelling. Pt also noticed his skin was yellow x 1 day. While at [facility], patient was HDS, however noted with significant bru ising and edema of LUE. Reportedly, trauma surgery was consulted at [place] and there was initially concern for compartment syndrome and fasciotomy was considered, but ultimately did not occur at the time. The trauma attending Dr. Du recommended orthopedic consultation upon arrival to the [facility] MICU. While at [place] labs significant for indirect hyperbilirubinemia, and acute macrocytic anemia 6.9 requiring 1u pRBC and [address] Abd/Pelvis W/ Contrast showed liver cirrhosis and steatosis without CBD dilation. Received morphine, ceftriaxone, protonix, thiamine. Started on NS for rhabdo. Patient transferred to [facility] for tertiary center care. While in the [facility] MICU, Ortho following - request MR Nadia elbow for assessment of possible complete vspartial L biceps tendon rupture. Corpak placed for nutrition and medications due to encephalopathy.Hematology following, who recommended prednisone 1mg/kg, daily labs and to monitor RBC transfusion protocol given patient currently HDS and suspected autoimmune anemia. US Spleen wnls. Gastroenterology following due to acute alcoholic hepatitis, (MDF 43) and Cirrhosis. On 01/08, patient with worsening agitation requiring precidex gtt and Clonidine patch. Most Recent Events Most recent vitals, Afebrile currently (Tmax 100.7 @ 01/10 194), HR 80's, Blood pressure 122/53, 96% on RA I/O's 5.8L/ 3.1L (Net this admission, +6.1L) Glycemic Control: NA Medications: Ceftriaxone 2g, day 4/5 Nexium 40mg IV BID Prednisilone 1mg/kg Labs: CBC with WBC 7.3, Hgb 5.9 (Hgb 6.8), MCV 108, Platelets 62,000 (58,000) BMP with Sodium 133, Potassium 3.4, Creatinine 0.43, Mg INR 2.16 LFTs with Albumin 2.6, Bili, direct 2.2 (2.6), Bili total 11.4 (11.1), ALT 57 (54), AST 143 (147) LDH 428, Haptoglobin <15 Microbiology: Blood cultures x2 preliminary with NGTD Subjective: Mentation and orientation stable today from 1 day prior. However still not back at baseline. This AM, patient arousable to verbal stimuli and oriented to person and time. Disoriented to place and time. Current Medications esomeprazole 40 mg 2x Daily prednisoLONE 70 mg Daily lactulose 20 g 2x Daily Water flush (Hydration) 120 mL QID (ENAR) multivitamins with minerals 15 mL Daily vitamin B-12 500 mcg Daily cloNIDine 0.1 mg Q7 Days cefTRIAXone orderable 2,000 mg Q24H Antibiotic folic acid 1 mg Daily vitamin B-1 100 mg Daily dexmedetomidine (PRECEDEX) IV infusion orderable 1.4 mcg/kg/hr (01/11/22 0600) Tube feed 20 mL/hr at 01/09/22 1500 lactated ringers 150 mL/hr at 01/11/22 0600 acetaminophen 500 mg Q6H PRN LORazepam 2 mg Q2H PRN Objective Patient Vitals for the past 24 hrs: BP Temp Temp src Pulse Resp SpO2 O2 Device 01/11/22 0739 -- 97.7 F (36.5 C) Axillary -- -- -- -- 01/11/22 0600 122/53 -- -- 86 17 96 % -- 01/11/22 0500 116/65 -- -- 88 14 95 % -- 01/11/22 0400 125/62 -- -- 88 19 93 % Room air 01/11/22 0345 -- 100 F (37.8 C) Axillary -- -- -- -- 01/11/22 0300 110/62 -- -- 92 20 97 % -- 01/11/22 0200 126/64 -- -- 90 0 96 % -- 01/11/22 0100 113/53 -- -- 93 22 97 % -- 01/11/22 0000 103/45 99 F (37.2 C) Oral 94 27 96 % Room air 01/10/22 2300 107/89 -- -- 128 24 100 % -- 01/10/22 2200 -- -- -- 106 25 95 % -- 01/10/22 2100 115/65 -- -- 95 18 100 % -- 01/10/22 2000 138/109 -- -- 102 14 99 % Room air 01/10/22 1945 -- 100.7 F (38.2 C) Oral -- -- -- -- 01/10/22 1900 117/95 -- -- 100 22 98 % -- 01/10/22 1802 129/75 -- -- 106 19 97 % -- 01/10/22 1800 -- -- -- 105 25 100 % -- 01/10/22 1700 142/118 -- -- 114 22 95 % -- 01/10/22 1600 132/83 99.6 F (37.6 C) Oral 92 25 96 % Room air 01/10/22 1500 138/82 -- -- 92 19 98 % -- 01/10/22 1400 131/77 -- -- 89 16 98 % -- 01/10/22 1300 -- -- -- 86 20 96 % -- 01/10/22 1200 121/64 98.6 F (37 C) Oral 99 29 94 % Room air 01/10/22 1100 118/60 -- -- 90 22 95 % -- 01/10/22 1000 115/66 -- -- 77 16 94 % -- 01/10/22 0900 104/54 -- -- 82 15 93 % -- 01/10/22 0800 123/72 97.8 F (36.6 C) Oral 79 16 98 % Room air Ins & Outs Admission Weight Weight: 147 lb 11.3 oz (67 kg) Today's Weight Weight: 151 lb 7.3 oz (68.7 kg) BMI 23.72 Change in Weight: Current value is 151.5 lb (68.699 kg) on 01/11/2022 at 0600 +1.1 lb (0.500 kg) (0.73 %) from 150.4 lb (68.199 kg) on 01/10/2022 at 0600 (previous value) +3.7 lb (1.700 kg) (2.54 %) from 147.7 lb (66.999 kg) on 01/08/2022 at 0800 (first value for this admission) Intake/Output Summary (Last 24 hours) at 01/11/2022 0742 Last data filed at 01/11/2022 0600 Gross per 24 hour Intake 5820.5 ml Output 3175 ml Net 2645.5 ml In: 5820.5 (84.7 mL/kg) [I.V.:4240.5 (2.6 mL/kg/hr)] Out: 3175 (46.2 mL/kg) [Urine:3175 (1.9 mL/kg/hr)] Net: 2645.5 Weight: 68.7 kg Peripheral IV Access: 01/07/22 Right Forearm Present on Arrival to Hospital (Active) Site Assessment WNL;Dressing intact 01/09/22 0400 Infusion Status Port #1 Infusing;Patent 01/09/22 0400 Number of days: 2 Peripheral IV Access: 01/08/22 Right Hand Present on Arrival to Hospital (Active) Site Assessment WNL;Dressing intact 01/09/22 0400 Infusion Status Port #1 Capped;Patent;Positive blood return 01/09/22 0400 Number of days: 1 External Urinary Collection (Active) Site Assessment WNL 01/09/22 0400 Collection Type Drainage bag 01/09/22 0400 Catheter Care Catheter tube secured 01/09/22 0400 Change Date 01/09/22 01/09/22 0000 Change Time 0000 01/09/22 0000 Urine (ml) 95 01/09/22 0600 Number of days: 0 Physical Exam Physical Exam Constitutional: Appearance: Normal appearance. HENT: Head: Normocephalic and atraumatic. Nose: Nose normal. No congestion. Mouth/Throat: Mouth: Mucous membranes are moist. Pharynx: Oropharynx is clear. Eyes: General: Scleral icterus present. Extraocular Movements: Extraocular movements intact. Cardiovascular: Rate and Rhythm: Normal rate and regular rhythm. Pulses: Normal pulses. Heart sounds: No murmur heard. Pulmonary/Chest/Breast: Effort normal. He has no wheezes. He has no rhonchi. He has no rales. Abdominal: General: Abdomen is flat. Bowel sounds are normal. There is no distension. Palpations: Abdomen is soft. Tenderness: There is no abdominal tenderness. Musculoskeletal: General: Swelling (Left upper extremity and hand ) present. Normal range of motion. Cervical back: Normal range of motion and neck supple. Right lower leg: No edema. Left lower leg: No edema. Neurological: General: No focal deficit present. Mental Status: He is alert. He is disoriented. Skin: General: Skin is warm and dry. Coloration: Skin is jaundiced. Psychiatric: Mood and Affect: Mood normal. Behavior: Behavior normal. Vitals and nursing note reviewed. Labs Arterial Blood Gases None CBC/PT/INR WBC RBC Hgb Hct MCV RDW Plt PT aPTT INR 01/11/22 0116 7.3 1.54 5.9 16.7 108 23.6 62 01/11/22 0116 2.16 01/10/22 1612 29 01/10/22 1131 5.4 1.79 6.8 19.1 107 23.8 93 01/10/22 0353 4.7 1.80 6.8 19.2 106 23.4 58 01/10/22 0353 1.79 01/09/22 1722 3.7 1.76 6.4 18.4 105 23.7 56 01/09/22 0348 3.8 1.84 6.7 19.0 103 23.3 52 01/09/22 0348 1.94 01/08/22 1825 5.4 1.94 7.3 20.3 105 24.0 52 01/08/22 0918 1.78 01/08/22 0853 5.7 1.96 7.2 20.1 102 24.2 51 WBC/Diff Neutro% Segs% Bands% Lymphs% Monos% Eos% Basos% 01/11/22 0116 73.3 12.7 13.3 0.2 0.5 01/10/22 1131 75.3 12.7 10.6 0.1 1.2 01/10/22 0353 72.9 15.4 9.7 0.6 1.4 01/09/22 1722 64.8 19.4 13.7 1.5 0.7 01/09/22 0348 65.0 20.2 12.5 1.4 0.9 01/08/22 1825 63.0 17.5 16.9 1.9 0.7 01/08/22 0853 64.5 17.9 15.4 1.4 0.8 Basic Metabolic Panel Na K Cl CO2 Gap Glu BUN Cr Ca Mg PO4 01/11/22 011 133 3.4 101 25 10 149 5 0.43 Comment: Grossly icteric; may falsely decrease creatinine 8.0 01/10/22 1626 1.7 01/10/22 1626 134 3.5 99 22 17 165 4 0.60 Comment: Grossly icteric; may falsely decrease creatinine 8.6 01/10/22 0353 133 4.0 101 27 9 172 9 0.44 Comment: Grossly icteric; may falsely decrease creatinine 8.4 01/09/22 0348 133 4.0 100 27 10 142 7 0.41 Comment: Grossly icteric; may falsely decrease creatinine 8.1 01/08/22 0853 1.7 01/08/22 0853 129 3.7 95 22 16 91 5 0.44 Comment: Grossly icteric; may falsely decrease creatinine 8.1 Creatinine clearance from Cockroft-Gault: 220 ml/min using IBW 66.1 kg (actual weight 68.7 kg ignored) GFR from MDRD: greater than 60 age 36 yr, cr=0.43 on 01/11/2022, race White LFT's (last 3 years, up to 5 values) T Prot Albumin D Bili T Bili Alk Phos ALT AST 01/11/22115 5.7 2.6 2.20 11.4 Comment: Elevated bilirubin may falsely lower creatinine 95 57 143 01/10/22 0353 6.0 2.7 2.60 11.1 Comment: Elevated bilirubin may falsely lower creatinine 87 54 147 01/09/228 6.0 2.7 2.50 11.2 Comment: Elevated bilirubin may falsely lower creatinine 92 47 124 01/08/22 0853 6.4 2.9 2.40 11.1 Comment: Elevated bilirubin may falsely lower creatinine 121 50 129 Cardiac None Fingerstick Glucose None INR (no units) Date Value 01/11/2022 2.16 (H) 01/10/2022 1.79 (H) 01/09/2022 1.94 (H) 01/08/2022 1.78 (H) TSH (uIU/mL) Date Value 01/08/2022 6.627 (H) No results found for: HBA1C Lipids (last 3 years, up to 5 values) Chol- esterol TG HDL LDL Chol / HDL LDL / HDL Non HDL 01/08/22 1524 341 266 30 277 11.37 9.23 311 Cultures Blood Culture Blood culture 01/09/22 1105 No growth to date, culture reincubated [P] 01/09/22 1105 No growth to date, culture reincubated [P] [P] - Preliminary Result Urine Culture None Respiratory Culture, Misc None Pyogen Culture None Reticulocyte index = 1.24; this indicates hypoproliferation. Imaging US ASCITES 01/08 IMPRESSION: No evidence of ascites. US RUQ US 01/08 IMPRESSION: 1. Cirrhosis with severe hepatic steatosis. 2. Focal asymmetric gallbladder wall thickening most suggestive of adenomyosis. Gallbladder sludge.No pericholecystic fluid or sonographic Galeano's sign to suggest acute cholecystitis. 3. Normal size common bile duct measuring 5 mm. Mild intrahepatic biliary dilatation is noted. CXR 01/09 Impression: CorPak tube is in the antrum. Examination is otherwise limited. Consults GI Ortho Resident's Assessment/Plan 36 male with past medical history of Alcohol use disorder, who presented tot ED with complaints of LUE swelling and pain. Patient ultimately found to have acute alcoholic hepatitis and therefore was admitted to the MICU. 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 DDx favors hemolysis - could be from hematoma formation from his injuries vs autoimmune, vs. viral hepatitis, less likely No ascites on US ascites survey RUQ US - c/w cirrhosis, also found focal GB wall thickening c/w adenomyosis (a benign finding persearch). CBD is normal 5mm. Mild interhepatic biliary dilatation. - LDH elevated, low haptoglobin c/w hemolysis. retic index is lower (likely bone marrow suppressionfrom EtOH). 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 In the setting of this, will hold on additional transfusions as pt is HDS. Will consult hematology on further recommendations. Plan: - Daily PT/INR - GI consulted, appreciate recs - 2 Large bore PIVs - Currently holding on blood transfusions dispite Hgb < 7 due to patient being HDS and suspectedautoimmune anemia - Lactulose BID - Prednisolone 1mg/kg (treatment for autoimmune hemolytic anemia) - Folic acid and thiamine supplementation daily - Vitamin K per GI, 1 dose remaining # Acute macrocytic anemia, Autoimmune suspected No overt GIB. s/p 1u pRBC from Meet, did not increment appropriately - only 6.9 --> 7.2 after the unitof blood. - LDH elevated, low haptoglobin c/w hemolysis. retic index is lower (likely bone marrow suppressionfrom etoh). 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 In the setting of this, will hold on additional transfusions as pt is HDS. Will consult hematology on further recommendations. Plan: - CBC's q12 hours - 2 Large bore PIVs - Currently holding on blood transfusions dispite Hgb < 7 due to patient being HDS and suspectedautoimmune anemia -TSH elevated, but subsequent T4 wnl -- subclinical hypothyroidism. - Prednisolone 1mg/kg daily - Maintain Nexium 40mg IV BID # LUE swelling 2/2 trauma Plan: - Ortho consulted, appreciate recs: no fx on plain films. 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 Plan: - Monitor CIWA's - Ativan 2mg, q2h PRN for elevated CIWA's - Precedex gtt, wean as tolerated - Patient remains intermittently agitated on precedex gtt; in order to facilitate success of MR scan, will attempt to wean from precedex gtt and augment withdrawal tx with clonidine patch 0.1 mg (lowest dose) - Clonidine patch 0.1mg # Hypothermia # Concern for cellulitis of chest wall Less likely cellulitis given exam and CT findings, most suggestive of edema, however will empirically tx with ceftriaxone and monitor closely Plan: - Continue CTX given hypothermia noted this AM, may be a manifestation of infection, plan for 5 days of treatment if stable. - Skin care #Systolic murmur Likely flow murmur Plan: - Monitor for now. # Malnutrition Goal glc 140-180, check POCT Glucose q6h while NPO TSH elevated, but subsequent T4 wnl -- subclinical hypothyroidism. Due to encephalopathy from etoh wdl, Plan: - Corpak placed, start tube feeds # Rhabdomyolysis - mild -CK 700's --> 1000 Plan: - LR @ 150cc/h - Daily CK levels F (feeding/fluids): TF A (analgesia): Tylenol with 2g daily limit. S (sedation): Precidex T (thromoboprophylaxis): SCDs H (head up position): 30 degrees due to risk for aspiration U (ulcer prophylaxis): Nexium BID G (glycemic control): As above S (spontaneous breathing trial): n/a B (bowel care): Lactulose I ( Invasive): none D (deescalation of antibiotics): Ceftriaxone Social- Dad Rich [phone] and mom Code Status: Full Code Dispo: MICU Plan is preliminary until discussed with attending Abhinav De La Vega DO PGY-2 [phone] (click to text page) * Mateo Albert MD - 01/10/2022 3:58 PM EDT SVT in the 180s for 1-2 minutes spontaneously resolved. EKG post shows sinus tachy Will check electrolytes and monitor. * Leon Santana MD - 01/10/2022 2:24 PM EDT Images from the original note were not included. [Chart reviewed and note started on 01/10/22; patient seen and note completed on 01/11/22] MICU ATTENDING NOTE LEON SANTANA MD - PIN [id number] I saw and evaluated the patient. I personally obtained the ferraro and critical portions of the historyand physical examination. I reviewed the resident's documentation and discussed the patient with the resident. I agree with the resident's medical decision making as documented in the resident's note. This patient has a high probability of sudden, clinically significant deterioration, which requiresthe highest level of physician preparedness to intervene urgently. I managed/supervised life or organ supporting interventions that required frequent physician assessment. Time I spent with family or surrogate(s) is included only if the patient was incapable of providing the necessary information or participating in medical decision making. Time devoted to teaching and to any procedures I billed separately is not included. I spent 35 critical care minutes of my full attention on this patient's management and direct patient care. Of note, medical issues requiring critical care management include: ACUTE BLOOD LOSS ANEMIA and HEPATIC FAILURE. Additional findings and notation: Will Anderson is a 36 year old man with EtOH use disorder 01/08/2022 with traumatic arm injury and found to have acute liver injury and acute hemolytic anemia. SVT lats night; resolved spontaneously BP 129/62 Pulse 89 Temp 97.7 F (36.5 C) (Axillary) Resp 18 Ht 5' 7 (1.702 m) Wt 151 lb 7.3 oz (68.7 kg) SpO2 94% BMI 23.72 kg/m on room air Intake/Output Summary (Last 24 hours) at 01/11/2022 1011 Last data filed at 01/11/2022 0900 Gross per 24 hour Intake 5810.5 ml Output 2575 ml Net 3235.5 ml Arterial Blood Gases None Basic Metabolic Panel Na K Cl CO2 Gap Glu BUN Cr Ca Mg PO4 01/11/22 0116 2.0 01/11/22 0116 133 3.4 101 25 10 149 5 0.43 Comment: Grossly icteric; may falsely decrease creatinine 8.0 01/10/22 1626 1.7 01/10/22 1626 134 3.5 99 22 17 165 4 0.60 Comment: Grossly icteric; may falsely decrease creatinine 8.6 01/10/22 0353 133 4.0 101 27 9 172 9 0.44 Comment: Grossly icteric; may falsely decrease creatinine 8.4 01/09/22 0348 133 4.0 100 27 10 142 7 0.41 Comment: Grossly icteric; may falsely decrease creatinine 8.1 Hepatic/Biliary/Pancreas T Prot Albumin D Bili T Bili Alk Phos ALT AST Amylase Lipase 01/11/22 0116 5.7 2.6 2.20 11.4 Comment: Elevated bilirubin may falsely lower creatinine 95 57 143 01/10/22 0353 6.0 2.7 2.60 11.1 Comment: Elevated bilirubin may falsely lower creatinine 87 54 147 01/09/22 0348 6.0 2.7 2.50 11.2 Comment: Elevated bilirubin may falsely lower creatinine 92 47 124 CBC/PT/INR WBC RBC Hgb Hct MCV RDW Plt PT aPTT INR 01/11/22 0116 7.3 1.54 5.9 16.7 108 23.6 62 01/11/22 0116 2.16 01/10/22 1612 29 01/10/22 1131 5.4 1.79 6.8 19.1 107 23.8 93 01/10/22 0353 4.7 1.80 6.8 19.2 106 23.4 58 01/10/22 0353 1.79 01/09/22 1722 3.7 1.76 6.4 18.4 105 23.7 56 01/09/22 0348 3.8 1.84 6.7 19.0 103 23.3 52 01/09/22 0348 1.94 01/08/22 1825 5.4 1.94 7.3 20.3 105 24.0 52 WBC/Diff Neutro% Segs% Bands% Lymphs% Monos% Eos% Basos% 01/11/22 0116 73.3 12.7 13.3 0.2 0.5 01/10/22 1131 75.3 12.7 10.6 0.1 1.2 01/10/22 0353 72.9 15.4 9.7 0.6 1.4 01/09/22 1722 64.8 19.4 13.7 1.5 0.7 01/09/228 65.0 20.2 12.5 1.4 0.9 01/08/22 1825 63.0 17.5 16.9 1.9 0.7 potassium chloride 40 mEq One Time Dose cefTRIAXone orderable 2,000 mg Q24H Antibiotic esomeprazole 40 mg 2x Daily prednisoLONE 70 mg Daily lactulose 20 g 2x Daily Water flush (Hydration) 120 mL QID (ENAR) multivitamins with minerals 15 mL Daily vitamin B-12 500 mcg Daily cloNIDine 0.1 mg Q7 Days folic acid 1 mg Daily vitamin B-1 100 mg Daily dexmedetomidine (PRECEDEX) IV infusion orderable 1.4 mcg/kg/hr (01/11/22 0800) Tube feed 20 mL/hr at 01/09/22 1500 lactated ringers 150 mL/hr at 01/11/22 0800 A/P: +) Acute alcoholic hepatitis/Cirrhosis/Encophalopathy -- Maddrey's DF 42 On steroids for hemolytic anemia and alcoholic hepatitis PPI No ascites present Lactulose GI following +) AIHA -- Labs confounded by cirrhosis, but AIHA by active hemolysis, positive AYLIN Appreciate Heme-Onc assistance Prednisilone 1 mg/kg/day Work-up as per Heme-Onc recommendations Transfuse for symptomatic anemia or < 5 Folic acid +) Thrombocytopenia/Coagulopathy -- Cirrhosis, EtOH Received vitamin K Supportive care +) EtOH withdrawal -- Thiamine/folate CIWA Dexmedetomidine 1.4 mcg/kg/hour + lorazepam 2 mg prn +) Sepsis -- Possible cellulitis of chest wall Ceftriaxone day 4/ +) Nutrition -- Tube feeds +) PT/OT -- +) Sedation/Analgesia -- +) DVT/GI prophylaxis -- SCDs PPI +) Lines/Catheters -- PIVs No Rosales +) Social/Goals of Care -- Parents Code Status: Full Code Leon Santana M.D. Director, Pulmonary, Critical Care and Sleep Medicine [facility] * Candido Lerner MD - 01/10/2022 12:31 PM EDT Images from the original note were not included. . Name: Will Anderson Encounter Date: 01/10/2022 PCP: No primary care provider on file. Heme-Onc: N/A Reason for consult: AIHA Attending Provider Hematology/ Oncology Consult Daily Progress Note Overnight Events Continues to be altered, but responds to verbal stimuli today. Unable to obtain any further history. Review of Systems 12 Point ROS negative except HPI Allergies Allergies Allergen Reactions Amoxacillin [Amoxicillin] Medications [START ON 01/11/2022] prednisoLONE 70 mg Daily esomeprazole 80 mg 2x Daily lactulose 20 g 2x Daily Water flush (Hydration) 120 mL QID (ENAR) multivitamins with minerals 15 mL Daily vitamin B-12 500 mcg Daily cloNIDine 0.1 mg Q7 Days cefTRIAXone orderable 2,000 mg Q24H Antibiotic folic acid 1 mg Daily vitamin B-1 100 mg Daily dexmedetomidine (PRECEDEX) IV infusion orderable Tube feed 20 mL/hr at 01/09/22 1500 lactated ringers 150 mL/hr at 01/10/22 1100 LORazepam 1 mg Q2H PRN acetaminophen 500 mg Q6H PRN Physical Exam Blood pressure 118/60, pulse 90, temperature 98.6 F (37 C), temperature source Oral, resp. rate 22,height 5' 7 (1.702 m), weight 150 lb 5.7 oz (68.2 kg), SpO2 95 %. GEN: altered, somnolent, jaundiced HEENT: scleral icterus, NG tube, dry MM CV: sinus tachycardia Chest: upper respiratory airway sounds GI: soft, NT, ND, +BS, no rebound or guarding MSK: +LUE edema/swelling/erytehma, +b Skin: ecchymosis over R-chest wall and erythema of LUE Neuro: responds to verbal/ physical stimuli. Oriented x 0 Labs Basic Metabolic Panel Na K Cl CO2 Gap Glu BUN Cr Ca 01/10/22 0353 133 4.0 101 27 9 172 9 0.44 Comment: Grossly icteric; may falsely decrease creatinine 8.4 01/09/22 0348 133 4.0 100 27 10 142 7 0.41 Comment: Grossly icteric; may falsely decrease creatinine 8.1 01/08/22 0853 129 3.7 95 22 16 91 5 0.44 Comment: Grossly icteric; may falsely decrease creatinine 8.1 CBC (last 3 years, up to 5 values) (Last 5 results in the past 3 years) WBC RBC Hgb Hct MCV RDW Plt 01/10/22 1131 5.4 1.79 6.8 19.1 107 23.8 93 01/10/22 0353 4.7 1.80 6.8 19.2 106 23.4 58 01/09/22 1722 3.7 1.76 6.4 18.4 105 23.7 56 01/09/22 0348 3.8 1.84 6.7 19.0 103 23.3 52 01/08/22 1825 5.4 1.94 7.3 20.3 105 24.0 52 LFT's (last 3 years, up to 5 values) T Prot Albumin D Bili T Bili Alk Phos ALT AST 01/10/22 0353 6.0 2.7 2.60 11.1 Comment: Elevated bilirubin may falsely lower creatinine 87 54 147 01/09/22 0348 6.0 2.7 2.50 11.2 Comment: Elevated bilirubin may falsely lower creatinine 92 47 124 01/08/22 0853 6.4 2.9 2.40 11.1 Comment: Elevated bilirubin may falsely lower creatinine 121 50 129 TSH (uIU/mL) Date Value 01/08/2022 6.627 (H) Imaging RUQ US (01/08) 1. Cirrhosis with severe hepatic steatosis. 2. Focal asymmetric gallbladder wall thickening most suggestive of adenomyosis. Gallbladder sludge.No pericholecystic fluid or sonographic Galeano's sign to suggest acute cholecystitis. 3. Normal size common bile duct measuring 5 mm. Mild intrahepatic biliary dilatation is noted. US spleen (01/10) Normal ultrasound of the spleen. Assessment/Plan Will Anderson is a 36 year old male w/ PMH of EtOH abuse who initially presented to OSH (01/07) with LUE swelling and found to have acute bicep tendon rupture. Pt was evaluated by trauma surgery due to initial concern for compartment syndrome and fasciotomy was considered, but did not occur due to severe lab abnormalities including anemia w/ Hb: 6.9, hyperbilirubinemia up to 11, elevated LFTs, low plt s, coagulopathy Received s/p 1u pRBC and 1u FFP and was transfered to [facility]-ICU for further management. On (01/08) PM pt noted to have severe EtOH w/d requiring precedex gtt. Anemia/tcp/coaguloapthy workup upon arrival was significant for elevated LDH: 369, Hapto<15, reitc:5.2%, Tb:11.2, direct: 2.5, Hb: 6.7, plt:52, INR:1.9, AYLIN: polyspecific+, IgG+ concerning for AIHA for which hematology was consulted. Given pt's with history of extensive EtOH cirrhosis with portal HTN, synthetic dysfunction, varices, pancytopenia likely multifactorial. Though labs concerning for AIHA, degree of hemolysis unclear given cirrhosis/alcoholic hepatitis ( Hapto likely low at baseline, TB and LDH likely elevated at baseline). PB smear with increased reticulocytosis, mild-mod spherocytes, rare bite cells, polychromasia consistent with hemolysis. US spleen (01/10): normal. Per coagulopathy- GI following, s/p 3 days of Vit K 10 mg IVPB, completed today GEOVANNA, HIV/Hep Panel: negative Plan - RVP in process - cont daily prednisolone 1 mg/kg/day ( given underlying alcoholic hepatitis/AIHA) - monitor daily CBC w/ diff, LFT, Hapto, LDH - AVOID blood transfusions at this time, unless pt having active bleed - supplement with folic acid 1 mg qday, MV - please obtain DD, coags ( PT, INRm, PTT), fibrinogen to assess for DIC due to trauma - Fac VIII level in process Pt was seen and discussed with Dr. Weaver Thank you for the consult, will continue to follow daily Candido Lerner MD Hematology- Oncology PGY-V Pager [phone] Associated attestation - Rd Weaver MD - 01/14/2022 4:44 PM EDT Teaching Physician Note: I saw and evaluated the patient. I personally obtained the ferraro and critical portions of the historyand physical exam. I reviewed the fellow/resident's documentation and discussed the patient with the fellow/resident. I agree with the fellow resident's medical decision making as documented in the Fe llow/resident's note. * Kasey Childers RN - 01/10/2022 11:55 AM EDT 11:55 AM /SARAH De La Vega notified of critical Hematocrit and Hemoglobin value of 6.8 and 19.1, respectively. /SARAH De La Vega viewed critical result via secure chat. New orders not received. * Abbey Alvarez MD - 01/10/2022 10:52 AM EDT Images from the original note were not included. GI CONSULT PROGRESS NOTE Labs: CBC (last 3 years, up to 5 values) (Last 5 results in the past 3 years) WBC RBC Hgb Hct MCV RDW Plt 01/10/22 0353 4.7 1.80 6.8 19.2 106 23.4 58 01/09/22 1722 3.7 1.76 6.4 18.4 105 23.7 56 01/09/22 0348 3.8 1.84 6.7 19.0 103 23.3 52 01/08/22 1825 5.4 1.94 7.3 20.3 105 24.0 52 01/08/22 0853 5.7 1.96 7.2 20.1 102 24.2 51 Basic Metabolic Panel Na K Cl CO2 Gap Glu BUN Cr Ca 01/10/22 0353 133 4.0 101 27 9 172 9 0.44 Comment: Grossly icteric; may falsely decrease creatinine 8.4 01/09/22 0348 133 4.0 100 27 10 142 7 0.41 Comment: Grossly icteric; may falsely decrease creatinine 8.1 01/08/22 0853 129 3.7 95 22 16 91 5 0.44 Comment: Grossly icteric; may falsely decrease creatinine 8.1 LFT's (last 3 years, up to 5 values) T Prot Albumin D Bili T Bili Alk Phos ALT AST 01/10/22 0353 6.0 2.7 2.60 11.1 Comment: Elevated bilirubin may falsely lower creatinine 87 54 147 01/09/22 0348 6.0 2.7 2.50 11.2 Comment: Elevated bilirubin may falsely lower creatinine 92 47 124 01/08/22 0853 6.4 2.9 2.40 11.1 Comment: Elevated bilirubin may falsely lower creatinine 121 50 129 INR (no units) Date Value 01/10/2022 1.79 (H) 01/09/2022 1.94 (H) 01/08/2022 1.78 (H) Component 01/08/2022 HBsAg Non-Reactive Hep B Surface Ab <3.1 Hep B Core Ab Total Nonreactive Hepatitis C Ab Nonreactive Hep A Ab Total Reactive (A) Hep A Ab IgM Nonreactive Imaging: US Spleen: IMPRESSION: Normal ultrasound of the spleen. US RUQ: IMPRESSION: 1. Cirrhosis with severe hepatic steatosis. 2. Focal asymmetric gallbladder wall thickening most suggestive of adenomyosis. Gallbladder sludge.No pericholecystic fluid or sonographic Galeano's sign to suggest acute cholecystitis. 3. Normal size common bile duct measuring 5 mm. Mild intrahepatic biliary dilatation is noted US Ascites survey: IMPRESSION: No evidence of ascites. RUQ US with doppler - pending Assessment and Recommendations: Will Anderson is a 36 year old male with history notable for EtOH use disorder, tobacco use disorder for whom gastroenterology was consulted for GI bleed and hyperbilirubinemia 2/2 acute alcoholic hepatitis (MDF 43). Acute viral hepatitis is ruled out. No ascites on US. Overall suspicion for infection is low at this time. Patient is also admitted for LUE swelling 2/2 trauma with plans for conservative management of L biceps tendon rupture. Course is c/b hemolytic anemia suspected to be autoimmune due to positive AYLIN. Hematology is following and have recommended initiation of PO prednisone for the same. In the absence of overt GI bleeding suspicion for blood loss anemia is low. Course is also c/b alcohol withdrawalrequiring precedex gtt. MELD-Na score: 24 at 01/10/2022 3:53 AM MELD score: 22 at 01/10/2022 3:53 AM Calculated from: Serum Creatinine: 0.44 mg/dL (Using min of 1 mg/dL) at 01/10/2022 3:53 AM Serum Sodium: 133 mmol/L at 01/10/2022 3:53 AM Total Bilirubin: 11.1 mg/dL at 01/10/2022 3:53 AM INR(ratio): 1.79 at 01/10/2022 3:53 AM Age: 36 years # Acute alcoholic hepatitis (MDF 43) # Jaundice # Thrombocytopenia # Elevated INR # EtOH use disorder # Suspected EtOH cirrhosis # Hepatic encephalopathy (Stage I) # LUE swelling 2/2 L biceps tendon rupture - Check daily CBC, BMP, LFT and INR - F/U doppler of portal and splenic veins - Appreciate nutrition recs, continue MVI, thiamine, folate and B12 - Recommend prednisolone over prednisone in patient with alcoholic hepatitis if okay with hematology - Check Lille score on day 7 of initiating steroids, if <0.45 then continue prednisolone 40 mg for a total of 28 days (no benefit from alcoholic hepatitis standpoint if Lille score is >0.45 on day 7) - Continue Nexium 40 mg IV BID, switch to PO when able while on steroids for ulcer prophylaxis - Strict alcohol cessation - F/U in liver clinic on discharge - Low sodium and high protein diet when able to tolerate PO - EGD with anesthesia for variceal screening ordered for outpatient (we will schedule this for patient) - No acute in-patient GI/hepatology needs Case discussed with GI attending, Dr. Haley Gary MD ([id number]) and Ulysses Solomon MD. Primary team updated via [employer] secure chat. We will sign off but please don't hesitate to reach out with questions or concerns. Abbey Alvarez MD Gastroenterology Fellow Personal Pager [phone] GI Consult Pager (nights and weekends) [phone] * Francisco Marino MD - 01/10/2022 9:13 AM EDT MICU ATTENDING NOTE FRANCISCO MARINO MD - PIN [id number] I saw and evaluated the patient. I personally obtained the ferraro and critical portions of the historyand physical examination. I reviewed the resident's documentation and discussed the patient with the resident. I agree with the resident's medical decision making as documented in the resident's note. This patient has a high probability of sudden, clinically significant deterioration, which requiresthe highest level of physician preparedness to intervene urgently. I managed/supervised life or organ supporting interventions that required frequent physician assessment. Time I spent with family or surrogate(s) is included only if the patient was incapable of providing the necessary information or participating in medical decision making. Time devoted to teaching and to any procedures I billed separately is not included. I spent 35 critical care minutes of my full attention on this patient's management and direct patient care. 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 Additional findings and notation: Will Anderson is a 36 year old male with PMH of EtOH dependence who presented with 2 days of L arm pain to [facility] ED. 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 Later the also had accidental chest wall trauma after he was working with awrench and hit himself in the chest. Patient drinks 4-10 twelve oz beers / day, last drink Thursday PM. At the [facility], he was found to have acute anemia to 6.9, jaundice with hyperbilirubinemia, and elevated transaminases. Transfused 1 U pRBC in the ED. Data: - CT abd/pelvis: mild to moderate body wall edema, +/- cellulitis of anterior chest. Moderate hepatic steatosis and cirrhosis, trace ascites, biliary sludge with probable small stones, mild to moderately dilated gallbladder. No cholecystitis. No biliary dilatation. Mild inflammation superior to pancreas. Moderate non-specific wall thickening of bladder. - RUQ US: Cirrhosis with severe hepatic steatosis. Focal asymmetric gallbladder wall thickening most suggestive of adenomyosis. Gallbladder sludge is present. No pericholecystic fluid or sonographic Galeano's sign to suggest acute cholecystitis. Normal size of CBD, mild intrahepatic dilation is noted. - Acetaminophen level neg - Hepatitis viral serologies - negative - AYLIN positive IgG - US spleen - normal size and appearance Overnight events: Intermittently agitated ASSESSMENT/PLAN FEN/GI: 1) Acute alcoholic hepatitis - Maddrey's DF = 43 2) Cirrhosis, and hepatic steatosis - GI consulted - No ascites present - Liver US with dopplers - Receiving steroids for hemolytic anemia - Will need outpatient EGD to screen for varices - Counseled patient on the importance of EtOH cessation HEME: 1) Macrocytic, hemolytic anemia - no gross evidence of GI bleeding 2) Jaundice 3) Indirect hyperbilirubinemia -- with positive AYLIN - Labs are suggestive of hemolytic anemia - Hematology consulted - there is evidence of hemolytic anemia on peripheral smear -- on prednisone1 mg/kg/day (start date 01/09) - No evidence of GI bleeding at this time, on nexium 40 mg IV BID 4) Thrombocytopenia - likely from EtOH use 5) Coagulopathy - due to cirrhosis NEURO: Metabolic encephalopathy - from EtOH withdrawal - precedex infusion - CIWA - Thiamine, folate CARDIAC: heart murmur heard at LUSB MSK: L upper extremity injury - concern for biceps rupture, possible underlying hematoma - Ortho consulted - MRI L elbow ID: Hypothermia - rule out sepsis. TSH is high but FT4 normal - on ceftriaxone for SSTI - f/u blood culture +) Nutrition -- Place Corpak for tube feeds + clears +) Sedation/Analgesia -- precedex infusion / tylenol +) DVT/GI prophylaxis -- SCDs / nexium +) Lines/Catheters -- PIVs / external catheter +) Social/Goals of Care -- Parents Code Status: Full Code Francisco Marino M.D. Pulmonary, Critical Care and Sleep Medicine [facility] * Abhinav De La Vega, DO - 01/10/2022 7:16 AM EDT Images from the original note were not included. [facility] Intensive Care Unit Critical Care Progress Note Will Anderson 36 year old 150.17718 lbs MRN/Room: [id number]/[facility]139/1 Length of stay: 2 day(s) Summary 36M hx EtOH use d/o, HLA-B27 positive who initially presented on 01/07/2021 to OSH with LUE edema, pain, bruising s/p trauma. 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 Progressive swelling. Pt also noticed his skin was yellow x 1 day. While at [facility], patient was HDS, however noted with significant bru ising and edema of LUE. Reportedly, trauma surgery was consulted at [place] and there was initially concern for compartment syndrome and fasciotomy was considered, but ultimately did not occur at the time. The trauma attending Dr. Du recommended orthopedic consultation upon arrival to the [facility] MICU. While at [place] labs significant for indirect hyperbilirubinemia, and acute macrocytic anemia 6.9 requiring 1u pRBC and [address] Abd/Pelvis W/ Contrast showed liver cirrhosis and steatosis without CBD dilation. Received morphine, ceftriaxone, protonix, thiamine. Started on NS for rhabdo. Patient transferred to [facility] for tertiary center care. While in the [facility] MICU, Ortho following - request MR L elbow for assessment of possible complete vspartial L biceps tendon rupture. Corpak placed for nutrition and medications due to encephalopathy.Hematology following, who recommended prednisone 1mg/kg, daily labs and to monitor RBC transfusion protocol given patient currently HDS and suspected autoimmune anemia. US Spleen wnls. Gastroenterology following due to acute alcoholic hepatitis, (MDF 43) and Cirrhosis. On 01/08, patient with worsening agitation requiring precidex gtt and Clonidine patch. Most Recent Events Most recent vitals, Afebrile, HR 80's, Blood pressure 104/63, 98% on RA I/O's 5.1L/ 2.1L (Net this admission, + 3.5L) Glycemic Control: NA Medications: Ceftriaxone 2g q24 hours, Nexium 40mg IV BID, Prednisone 1mg/kg Vit K IVpb one dose remaining. Labs: CBC with WBC 4.7, Hgb 6.8 (Hgb 6.4), MCV 106, Platelets 58,000 (56,000) BMP with Sodium 133, Potassium 4.0, Creatinine 0.44 INR 1.79 CK 1,073 (892) LFTs with Albumin 2.7, Bili, direct 2.6, Bili total 11.1, ALT 54 (47), AST 147 (124) Microbiology: Blood cultures in process x2 Imaging: ultrasound Spleen in process Subjective: Mentation and orientation improved today however still not back at baseline. This AM, patient arousable to verbal stimuli and oriented to person and time. Disoriented to place. Passed bedside swallow and can advance diet as tolerated. Denies any abdominal pain, fevers, chills, or overt bleeding. Current Medications predniSONE 70 mg Daily lactulose 20 g 2x Daily Water flush (Hydration) 120 mL QID (ENAR) multivitamins with minerals 15 mL Daily vitamin B-12 500 mcg Daily cloNIDine 0.1 mg Q7 Days phytonadione iv piggyback 10 mg Daily esomeprazole 40 mg 2x Daily cefTRIAXone orderable 2,000 mg Q24H Antibiotic folic acid 1 mg Daily vitamin B-1 100 mg Daily Tube feed 20 mL/hr at 01/09/22 1500 dexmedetomidine (PRECEDEX) IV infusion orderable 1.4 mcg/kg/hr (01/10/22 0700) lactated ringers 150 mL/hr at 01/10/22 0700 LORazepam 1 mg Q2H PRN acetaminophen 500 mg Q6H PRN Objective Patient Vitals for the past 24 hrs: BP Temp Temp src Pulse Resp SpO2 O2 Device 01/10/22 0700 104/63 -- -- 86 18 98 % -- 01/10/22 0600 113/61 -- -- 79 15 93 % -- 01/10/22 0500 110/63 -- -- 84 14 98 % -- 01/10/22 0400 125/86 -- -- 82 16 98 % Room air 01/10/22 0345 -- 98.2 F (36.8 C) Oral -- -- -- -- 01/10/22 0300 112/59 -- -- 74 13 94 % -- 01/10/22 0200 118/72 -- -- 88 14 96 % -- 01/10/22 0100 105/57 -- -- 82 14 95 % -- 01/10/22 0000 108/56 -- -- 86 13 97 % Room air 01/09/22 2330 -- 98 F (36.7 C) Oral -- -- -- -- 01/09/22 2300 93/51 -- -- 91 13 98 % -- 01/09/22 2200 104/56 -- -- 90 18 94 % -- 01/09/22 2100 99/57 -- -- 88 16 96 % -- 01/09/22 2000 101/63 98.2 F (36.8 C) Oral 81 17 97 % Room air 01/09/22 1900 106/60 -- -- 83 17 94 % -- 01/09/22 1800 -- -- -- 92 15 98 % -- 01/09/22 1700 97/55 95.72 F (35.4 C) -- 79 10 95 % -- 01/09/22 1600 102/54 98.1 F (36.7 C) Axillary 73 14 98 % -- 01/09/22 1500 88/43 96.26 F (35.7 C) -- 84 20 100 % Room air 01/09/22 1400 110/62 96.08 F (35.6 C) -- 72 17 96 % -- 01/09/22 1300 95/53 96.62 F (35.9 C) -- 75 14 96 % -- 01/09/22 1200 99/55 95.54 F (35.3 C) -- 69 13 96 % -- 01/09/22 1100 97/64 95 F (35 C) -- 69 14 98 % -- 01/09/22 1000 94/58 94.1 F (34.5 C) -- 64 12 100 % -- 01/09/22 0900 99/58 93.74 F (34.3 C) -- 59 11 97 % -- 01/09/22 0845 -- 93.56 F (34.2 C) Rectal -- -- -- -- 01/09/22 0800 94/60 -- -- 120 12 99 % Room air Ins & Outs Admission Weight Weight: 147 lb 11.3 oz (67 kg) Today's Weight Weight: 150 lb 5.7 oz (68.2 kg) BMI 23.55 Change in Weight: Current value is 150.4 lb (68.199 kg) on 01/10/2022 at 0600 +0.7 lb (0.300 kg) (0.44 %) from 149.7 lb (67.899 kg) on 01/09/2022 at 0600 (previous value) +2.6 lb (1.200 kg) (1.79 %) from 147.7 lb (66.999 kg) on 01/08/2022 at 0800 (first value for this admission) Intake/Output Summary (Last 24 hours) at 01/10/2022 0716 Last data filed at 01/10/2022 0700 Gross per 24 hour Intake 5085.7 ml Output 2128 ml Net 2957.7 ml In: 5085.7 (74.6 mL/kg) [I.V.:4285.7 (2.6 mL/kg/hr)] Out: 2128 (31.2 mL/kg) [Urine:2123 (1.3 mL/kg/hr); Drainage:5] Net: 2957.7 Weight: 68.2 kg Peripheral IV Access: 01/07/22 Right Forearm Present on Arrival to Hospital (Active) Site Assessment WNL;Dressing intact 01/09/22 0400 Infusion Status Port #1 Infusing;Patent 01/09/22 0400 Number of days: 2 Peripheral IV Access: 01/08/22 Right Hand Present on Arrival to Hospital (Active) Site Assessment WNL;Dressing intact 01/09/22 040 Infusion Status Port #1 Capped;Patent;Positive blood return 01/09/22 0400 Number of days: 1 External Urinary Collection (Active) Site Assessment WNL 01/09/22 0400 Collection Type Drainage bag 01/09/22 040 Catheter Care Catheter tube secured 01/09/22 0400 Change Date 01/09/22 01/09/22 0000 Change Time 0000 01/09/22 0000 Urine (ml) 95 01/09/22 0600 Number of days: 0 Physical Exam Physical Exam Constitutional: Appearance: Normal appearance. HENT: Head: Normocephalic and atraumatic. Nose: Nose normal. No congestion. Mouth/Throat: Mouth: Mucous membranes are moist. Pharynx: Oropharynx is clear. Eyes: General: Scleral icterus present. Extraocular Movements: Extraocular movements intact. Cardiovascular: Rate and Rhythm: Normal rate and regular rhythm. Heart sounds: No murmur heard. Pulmonary/Chest/Breast: Effort normal. He has no wheezes. He has no rhonchi. He has no rales. Abdominal: General: Abdomen is flat. Bowel sounds are normal. There is no distension. Palpations: Abdomen is soft. Tenderness: There is no abdominal tenderness. Musculoskeletal: General: Swelling (Left upper extremity and hand ) present. Normal range of motion. Cervical back: Normal range of motion and neck supple. Right lower leg: No edema. Left lower leg: No edema. Neurological: General: No focal deficit present. Mental Status: He is alert. He is disoriented. Skin: General: Skin is warm and dry. Coloration: Skin is jaundiced. Psychiatric: Mood and Affect: Mood normal. Behavior: Behavior normal. Vitals and nursing note reviewed. Labs Arterial Blood Gases None CBC/PT/INR WBC RBC Hgb Hct MCV RDW Plt PT aPTT INR 01/10/22 0353 4.7 1.80 6.8 19.2 106 23.4 58 01/10/22 0353 1.79 01/09/22 1722 3.7 1.76 6.4 18.4 105 23.7 56 01/09/22 0348 3.8 1.84 6.7 19.0 103 23.3 52 01/09/22 0348 1.94 01/08/22 1825 5.4 1.94 7.3 20.3 105 24.0 52 01/08/22 0918 1.78 01/08/22 0853 5.7 1.96 7.2 20.1 102 24.2 51 WBC/Diff Neutro% Segs% Bands% Lymphs% Monos% Eos% Basos% 01/10/22 0353 72.9 15.4 9.7 0.6 1.4 01/09/22 1722 64.8 19.4 13.7 1.5 0.7 01/09/228 65.0 20.2 12.5 1.4 0.9 01/08/22 1825 63.0 17.5 16.9 1.9 0.7 01/08/22 0853 64.5 17.9 15.4 1.4 0.8 Basic Metabolic Panel Na K Cl CO2 Gap Glu BUN Cr Ca Mg PO4 01/10/22 0353 133 4.0 101 27 9 172 9 0.44 Comment: Grossly icteric; may falsely decrease creatinine 8.4 01/09/22347 133 4.0 100 27 10 142 7 0.41 Comment: Grossly icteric; may falsely decrease creatinine 8.1 01/08/22 0853 1.7 01/08/22 0853 129 3.7 95 22 16 91 5 0.44 Comment: Grossly icteric; may falsely decrease creatinine 8.1 Creatinine clearance from [place]ro[place]-Gault: 215 ml/min using IBW 66.1 kg (actual weight 68.2 kg ignored) GFR from MDRD: greater than 60 age 36 yr, cr=0.44 on 01/10/2022, race White LFT's (last 3 years, up to 5 values) T Prot Albumin D Bili T Bili Alk Phos ALT AST 01/10/22352 6.0 2.7 2.60 11.1 Comment: Elevated bilirubin may falsely lower creatinine 87 54 147 01/09/228 6.0 2.7 2.50 11.2 Comment: Elevated bilirubin may falsely lower creatinine 92 47 124 01/08/22 0853 6.4 2.9 2.40 11.1 Comment: Elevated bilirubin may falsely lower creatinine 121 50 129 Cardiac None Fingerstick Glucose None INR (no units) Date Value 01/10/2022 1.79 (H) 01/09/2022 1.94 (H) 01/08/2022 1.78 (H) TSH (uIU/mL) Date Value 01/08/2022 6.627 (H) No results found for: HBA1C Lipids (last 3 years, up to 5 values) Chol- esterol TG HDL LDL Chol / HDL LDL / HDL Non HDL 01/08/22 1524 341 266 30 277 11.37 9.23 311 Cultures Blood Culture None Urine Culture None Respiratory Culture, Misc None Pyogen Culture None Reticulocyte index = 1.24; this indicates hypoproliferation. Imaging US ASCITES 01/08 IMPRESSION: No evidence of ascites. US RUQ US 01/08 IMPRESSION: 1. Cirrhosis with severe hepatic steatosis. 2. Focal asymmetric gallbladder wall thickening most suggestive of adenomyosis. Gallbladder sludge.No pericholecystic fluid or sonographic Galeano's sign to suggest acute cholecystitis. 3. Normal size common bile duct measuring 5 mm. Mild intrahepatic biliary dilatation is noted. CXR 01/09 Impression: CorPak tube is in the antrum. Examination is otherwise limited. Consults GI Ortho Resident's Assessment/Plan 36 male with past medical history of Alcohol use disorder, who presented tot ED with complaints of LUE swelling and pain. Patient ultimately found to have acute alcoholic hepatitis and therefore was admitted to the MICU. 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 Cardiovascular #Systolic murmur Likely flow murmur Plan: - Monitor for now. 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 DDx favors hemolysis - could be from hematoma formation from his injuries vs autoimmune, vs. viral hepatitis, less likely No ascites on US ascites survey RUQ US - c/w cirrhosis, also found focal GB wall thickening c/w adenomyosis (a benign finding persearch). CBD is normal 5mm. Mild interhepatic biliary dilatation. - LDH elevated, low haptoglobin c/w hemolysis. retic index is lower (likely bone marrow suppressionfrom EtOH). 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 In the setting of this, will hold on additional transfusions as pt is HDS. Will consult hematology on further recommendations. Plan: - Daily PT/INR - GI consulted, appreciate recs - 2 Large bore PIVs - Currently holding on blood transfusions dispite Hgb < 7 due to patient being HDS and suspectedautoimmune anemia - Lactulose BID - Prednisolone 1mg/kg (treatment for autoimmune hemolytic anemia) - Folic acid and thiamine supplementation daily - Vitamin K per GI, 1 dose remaining Renal/ #Hyponatremia - improving with IV hydration Likely hypovolemic given hx emesis Plan: - Continue LR as below for plan for rhabdo - Monitor UO closely - Rosales: absent Infectious Diseases # Hypothermia # Concern for cellulitis of chest wall Less likely cellulitis given exam and CT findings, most suggestive of edema, however will empirically tx with ceftriaxone and monitor closely Plan: - Continue CTX given hypothermia noted this AM, may be a manifestation of infection, plan for 5 days of treatment if stable. - Skin care Endocrine Goal glc 140-180, check POCT Glucose q6h while NPO TSH elevated, but subsequent T4 wnl -- subclinical hypothyroidism. # Malnutrition Due to encephalopathy from etoh wdl, Plan: - Corpak placed, start tube feeds Hematology/Oncology # Acute macrocytic anemia, Autoimmune suspected No overt GIB. s/p 1u pRBC from [place], did not increment appropriately - only 6.9 --> 7.2 after the unitof blood. - LDH elevated, low haptoglobin c/w hemolysis. retic index is lower (likely bone marrow suppressionfrom etoh). 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 In the setting of this, will hold on additional transfusions as pt is HDS. Will consult hematology on further recommendations. Plan: - CBC's q12 hours - 2 Large bore PIVs - Currently holding on blood transfusions dispite Hgb < 7 due to patient being HDS and suspectedautoimmune anemia -TSH elevated, but subsequent T4 wnl -- subclinical hypothyroidism. - Prednisolone 1mg/kg daily - Maintain Nexium 40mg IV BID # Thrombocytopenia, stable As sequelae of cirrhosis Musculoskeletal # LUE swelling 2/2 trauma Plan: - Ortho consulted, appreciate recs: no fx on plain films. Ortho has ordered MR L elbow - MRI of L elbow pending # Rhabdomyolysis - mild -CK 700's --> 1000 Plan: - LR @ 150cc/h - Daily CK levels F (feeding/fluids): TF A (analgesia): Tylenol with 2g daily limit. S (sedation): Precidex T (thromoboprophylaxis): SCDs H (head up position): 30 degrees due to risk for aspiration U (ulcer prophylaxis): Nexium BID G (glycemic control): As above S (spontaneous breathing trial): n/a B (bowel care): Lactulose I ( Invasive): none D (deescalation of antibiotics): Ceftriaxone Social- Dad Rich [phone] and mom Code Status: Full Code Dispo: MICU Plan is preliminary until discussed with attending Abhinav De La Vega DO PGY-2 [phone] (click to text page) * Bang Jameson RN - 01/10/2022 4:[address] Winston notified of critical Hgb of 6.8 and a critical Hct of 19.2. RN will continue to monitor. * Nasrin Smith RN - 01/09/2022 6:[address] Blanchard notified of critical H/H value of 6.4/18.4. Dr. Blanchard read back critical result. * Francisco Marino MD - 01/09/2022 1:01 PM EDT MICU ATTENDING NOTE FRANCISCO MARINO MD - PIN [phone] I saw and evaluated the patient. I personally obtained the ferraro and critical portions of the historyand physical examination. I reviewed the resident's documentation and discussed the patient with the resident. I agree with the resident's medical decision making as documented in the resident's note. This patient has a high probability of sudden, clinically significant deterioration, which requiresthe highest level of physician preparedness to intervene urgently. I managed/supervised life or organ supporting interventions that required frequent physician assessment. Time I spent with family or surrogate(s) is included only if the patient was incapable of providing the necessary information or participating in medical decision making. Time devoted to teaching and to any procedures I billed separately is not included. I spent 45 critical care minutes of my full attention on this patient's management and direct patient care. 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 Additional findings and notation: Will Anderson is a 36 year old male with PMH of EtOH dependence who presented with 2 days of L arm pain to [facility] ED. 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 Later the also had accidental chest wall trauma after he was working with awrench and hit himself in the chest. Patient drinks 4-10 twelve oz beers / day, last drink Thursday PM. At the OSH ED, he was found to have acute anemia to 6.9, jaundice with hyperbilirubinemia, and elevated transaminases. Transfused 1 U pRBC in the ED. Data: - CT abd/pelvis: mild to moderate body wall edema, +/- cellulitis of anterior chest. Moderate hepatic steatosis and cirrhosis, trace ascites, biliary sludge with probable small stones, mild to moderately dilated gallbladder. No cholecystitis. No biliary dilatation. Mild inflammation superior to pancreas. Moderate non-specific wall thickening of bladder. - RUQ US: Cirrhosis with severe hepatic steatosis. Focal asymmetric gallbladder wall thickening most suggestive of adenomyosis. Gallbladder sludge is present. No pericholecystic fluid or sonographic Galeano's sign to suggest acute cholecystitis. Normal size of CBD, mild intrahepatic dilation is noted. - Acetaminophen level neg Overnight events: Patient became confused, agitated overnight, started on precedex infusion for EtOH withdrawal, given ativan Hypothermic this morning ASSESSMENT/PLAN FEN/GI: 1) Jaundice 2) Indirect hyperbilirubinemia -- with positive AYLIN, concerning for hemolytic anemia 3) Acute alcoholic hepatitis - Maddrey's DF = 43 4) Cirrhosis 5) Hepatic steatosis - GI consult, appreciated - Soft tissue infection is possible so we will hold off on steroids for alcoholic hepatitis for now - Hepatitis viral serologies are negative - No ascites present - Liver US with dopplers - Ceftriaxone for SBP prophylaxis - Counseled patient on the importance of EtOH cessation HEME: 1) Macrocytic anemia - no gross evidence of GI bleeding - Labs are suggestive of hemolytic anemia - Hematology consult, hold on transfusion pending further recommendations - Monitor for bleeding, on nexium 40 mg IV BID 2) Thrombocytopenia - likely from EtOH use 3) Coagulopathy - due to cirrhosis NEURO: EtOH dependence - CIWA - Thiamine, folate CARDIAC: heart murmur heard at LUSB MSK: L upper extremity injury - concern for biceps rupture, possible underlying hematoma - Ortho consulted - MRI L elbow ID: Hypothermia - rule out sepsis. TSH is high but FT4 normal - Send blood cultures, on ceftriaxone for SSTI +) Nutrition -- Place Corpak for tube feeds +) Sedation/Analgesia -- tylenol +) DVT/GI prophylaxis -- SCDs / nexium +) Lines/Catheters -- PIVs +) Social/Goals of Care -- Parents Code Status: Full Code Francisco Marino M.D. Pulmonary, Critical Care and Sleep Medicine [facility] * Nasrin Smith RN - 01/09/2022 10:59 AM EDT Full Code NEURO: Restraints: Yes. Provider 1:1 note: Yes Frequent Neurochecks: No. Nursing Issues: Agitation CARDIAC IV access/Lines: Peripheral Line(s): Location R arm, gauge 20 Lines needing D/C d No AM labs: Yes Infusions: Dexmedetomidine Infusions needed D/C (off for more than 24 hours): No Nursing Issues: No PULMONARY: Spontaneous Breathing Trial: No Advanced Airway: No Orders needing discontinue: No Nursing Issues (Vent, Wean, Oxygen) No GI/: Rosales: No. External Catheter: Yes: Tube feeding: NPO CONSULT: Yes Diet: NPO Do medications have proper route (OG, PEG, NG, PO): Yes Nursing issues (CVVH, I&O s ) NGT placed per order. SKIN: Device management: External cath Wound consult: No Nursing issues (specialty bed, new skin concern, skin care orders etc..): No MD note in for stage III injury: No PSYCHOSOCIAL: Family meeting: No Social work or Care management needs: No Pain management: Continuous Precidex infusion Nursing concerns: No DISPOSITION: Transfer: No Discharge: No Can patient be transferred to lower level of care: No Criteria for transfer (stable H&H etc.): Off precidex gtt. Nursing concerns: No OVERNIGHT CONCERNS: Unable to tolerate MRI. Agitated. Precidex gtt started. NOTES REGARDING PLAN OF CARE: No BARRIERS TO PLAN OF CARE: No DEPUTY MANAGER IRENA Gomez DAY SHIFT RN Mary * Codi Thurman LSW - 01/09/2022 9:47 AM EDT Admission Screen Consult: SW aware of social concern per family law specialist screen for positive screen for low risk suicide and abuse. Pt is currently confused, restrained and unable to participate in conversation at this time. SW will follow up with pt to address as appropriate. SARAH Kelley Care Coordination Department * Ivy Chua MD - 01/09/2022 7:34 AM EDT Images from the original note were not included. [facility] Medical Intensive Care Unit Critical Care Progress Note Will Anderson 36 year old 149.6925 lbs MRN/Room: [id number] Length of stay: 1 day(s) Summary 36M hx EtOH use d/o, HLA-B27 positive initially presented on 01/07/2021 to OSH with LUE edema, pain, bruising s/p trauma. 4 days prior to presentation, pt was working on the farm and was pulling a ropewhen he felt a pop in his biceps, followed by pain. Progressive swelling. Pt also noticed his skin was yellow x 1 day. At [facility], pt was HDS. Noted with significant bruising and edema of LUE. Reportedly, trauma surgery was consulted at [place] and there was initially concern for compartment syndrome and fasciotomy was considered, but ultimately did not occur at the time. The trauma attending Dr. Du recommended orthopedic consultation upon arrival to the [facility] MICU. Labs significantfor indirect hyperbilirubinemia, acute macrocytic anemia 6.9. CT abd/pel with contrast showed livercirrhosis and steatosis; no CBD dilation. Received morphine, ceftriaxone, protonix, thiamine. Received 1u pRBC and 1u FFP at [place]. Started on NS for rhabdo. Transferred to [facility] for tertiary center care. Ortho following - request MR Zuniga elbow for assessment of possible complete vs partial L biceps tendon rupture. 01/08 evening course c/b severe etoh withdrawal requiring precedex gtt Overnight Subjective: pt seen and examined at bedside this AM. Intermittently follows commands. Is somnolent after receiving medication overnight for agitation as below. Recent Events: - Overnight, pt was in severe withdrawal, very agitated. In the MR scanner pt was agitated, unable to obtain images. Started on precedex gtt. Treated additionally with 2mg versed + 5mg haldol. - Consult recs: ---GI:- less likely GIB, cont nexium for now, daily BMP/LFT/INR, recommended checking hepatitis serologies and working up macrocytic anemia as well as RUQ US with doppler, ascites survey, tx with IV vit K 10mg x 3 days, lactulose daily - Vitals: HDS BP 93-111/48-70s, HR 71-90s, Afebrile, SpO2 98% on room air Telemetry = NSR I/O net = +587cc, since adm = +537cc, UOP = 895cc Current Medications LORazepam phytonadione iv piggyback 10 mg Daily esomeprazole 40 mg 2x Daily cefTRIAXone orderable 2,000 mg Q24H Antibiotic lactulose 20 g 3x Daily folic acid 1 mg Daily vitamin B-1 100 mg Daily dexmedetomidine (PRECEDEX) IV infusion orderable 1 mcg/kg/hr (01/09/22 0644) lactated ringers 100 mL/hr at 01/09/22 0600 LORazepam 2 mg Q2H PRN acetaminophen 500 mg Q6H PRN Objective Patient Vitals for the past 24 hrs: BP Temp Temp src Pulse Resp SpO2 O2 Device 01/09/22 0600 94/56 -- -- 79 11 98 % -- 01/09/22 0500 100/57 -- -- 62 14 96 % -- 01/09/22 0400 108/68 98.8 F (37.1 C) Oral 99 12 98 % Room air 01/09/22 0300 110/76 -- -- 65 16 97 % -- 01/09/22 0200 114/69 -- -- 71 14 95 % -- 01/09/22 0100 108/69 -- -- 73 15 97 % -- 01/09/22 0000 99/55 98.9 F (37.2 C) Axillary 78 15 97 % Room air 01/08/22 2300 93/48 -- -- 82 16 93 % -- 01/08/22 2200 111/78 -- -- 104 17 96 % -- 01/08/22 2000 110/90 98.2 F (36.8 C) Oral 107 16 -- Room air 01/08/22 1900 134/122 -- -- 117 21 94 % -- 01/08/22 1800 125/75 -- -- 87 15 97 % Room air 01/08/22 1700 109/91 -- -- 110 13 98 % -- 01/08/22 1613 137/63 -- -- 79 14 96 % -- 01/08/22 1600 71/40 99.3 F (37.4 C) Oral 105 18 100 % Room air 01/08/22 1509 119/71 -- -- 85 12 -- -- 01/08/22 1500 -- -- -- 90 17 -- -- 01/08/22 1400 125/67 -- -- 74 9 96 % Room air 01/08/22 1300 129/96 -- -- 86 13 98 % -- 01/08/22 1200 137/78 -- -- 72 11 96 % Room air 01/08/22 1131 -- 98 F (36.7 C) Oral -- -- -- -- 01/08/22 1100 126/65 -- -- 86 13 95 % -- 01/08/22 1000 124/70 -- -- 104 15 93 % Room air 01/08/22 0900 128/69 -- -- 82 12 95 % -- 01/08/22 0830 109/76 98.7 F (37.1 C) Oral 99 15 96 % -- 01/08/22 0815 126/73 -- -- 89 13 93 % -- 01/08/22 0800 126/64 -- -- 89 15 94 % Room air Ins & Outs Admission Weight Weight: 147 lb 11.3 oz (67 kg) Today's Weight Weight: 149 lb 11.1 oz (67.9 kg) BMI 23.45 Change in Weight: Current value is 149.7 lb (67.899 kg) on 01/09/2022 at 0600 +2.0 lb (0.900 kg) (1.34 %) from 147.7 lb (66.999 kg) on 01/08/2022 at 0800 (previous value) +2.0 lb (0.900 kg) (1.34 %) from 147.7 lb (66.999 kg) on 01/08/2022 at 0800 (first value for this admission) Intake/Output Summary (Last 24 hours) at 01/09/2022 0734 Last data filed at 01/09/2022 0600 Gross per 24 hour Intake 1482.57 ml Output 895 ml Net 587.57 ml In: 1482.6 (21.8 mL/kg) [I.V.:1482.6 (0.9 mL/kg/hr)] Out: 895 (13.2 mL/kg) [Urine:895 (0.5 mL/kg/hr)] Net: 587.6 Weight: 67.9 kg Peripheral IV Access: 01/07/22 Right Forearm Present on Arrival to Hospital (Active) Site Assessment WNL;Dressing intact 01/09/22 0400 Infusion Status Port #1 Infusing;Patent 01/09/22 0400 Number of days: 2 Peripheral IV Access: 01/08/22 Right Hand Present on Arrival to Hospital (Active) Site Assessment WNL;Dressing intact 01/09/22 0400 Infusion Status Port #1 Capped;Patent;Positive blood return 01/09/22 0400 Number of days: 1 External Urinary Collection (Active) Site Assessment WNL 01/09/22 0400 Collection Type Drainage bag 01/09/22 0400 Catheter Care Catheter tube secured 01/09/22 0400 Change Date 01/09/22 01/09/22 0000 Change Time 0000 01/09/22 0000 Urine (ml) 95 01/09/22 0600 Number of days: 0 Physical Exam VS reviewed, nursing note reviewed. General: appears in no acute distress. Somnolent. +jaundiced CV: RRR, no murmur, distal pulses intact Pulm: CTAB anteriorly, respiratory effort wnl Abdomen: bowel sounds present x4, soft, nondistended, nontender Extremities: +LUE swollen, covered in TASHA wrap and resting in pelon pillow for elevation Skin: warm, dry. +Jaundiced. Continues to have ecchymosis of R chest wall. Neuro: somnolent. Follows command (wiggles toes), says does not want to open his eyes. Labs Arterial Blood Gases None CBC/PT/INR WBC RBC Hgb Hct MCV RDW Plt PT aPTT INR 01/09/22347 3.8 1.84 6.7 19.0 103 23.3 52 01/09/22 0348 1.94 01/08/22 1825 5.4 1.94 7.3 20.3 105 24.0 52 01/08/22 0918 1.78 01/08/22 0853 5.7 1.96 7.2 20.1 102 24.2 51 WBC/Diff Neutro% Segs% Bands% Lymphs% Monos% Eos% Basos% 01/09/22347 65.0 20.2 12.5 1.4 0.9 01/08/22 1825 63.0 17.5 16.9 1.9 0.7 01/08/22 0853 64.5 17.9 15.4 1.4 0.8 Basic Metabolic Panel Na K Cl CO2 Gap Glu BUN Cr Ca Mg PO4 01/09/22347 133 4.0 100 27 10 142 7 0.41 Comment: Grossly icteric; may falsely decrease creatinine 8.1 01/08/22 0853 1.7 01/08/2253 129 3.7 95 22 16 91 5 0.44 Comment: Grossly icteric; may falsely decrease creatinine 8.1 Creatinine clearance from [facility]ro[place]-Gault: 231 ml/min using IBW 66.1 kg (actual weight 67.9 kg ignored) GFR from MDRD: greater than 60 age 36 yr, cr=0.41 on 01/09/2022, race White LFT's (last 3 years, up to 5 values) T Prot Albumin D Bili T Bili Alk Phos ALT AST 01/09/228 6.0 2.7 2.50 11.2 Comment: Elevated bilirubin may falsely lower creatinine 92 47 124 01/08/22 0853 6.4 2.9 2.40 11.1 Comment: Elevated bilirubin may falsely lower creatinine 121 50 129 Cardiac None Fingerstick Glucose Glucose 01/08/22 0833 94 INR (no units) Date Value 01/09/2022 1.94 (H) 01/08/2022 1.78 (H) TSH (uIU/mL) Date Value 01/08/2022 6.627 (H) No results found for: HBA1C Lipids (last 3 years, up to 5 values) Chol- esterol TG HDL LDL Chol / HDL LDL / HDL Non HDL 01/08/22 1524 341 266 30 277 11.37 9.23 311 Cultures Blood Culture None Urine Culture None Respiratory Culture, Misc None Pyogen Culture None Reticulocyte index = 1.24; this indicates hypoproliferation. Imaging NEW IMAGING SINCE LAST CRITICAL CARE NOTE US ASCITES / IMPRESSION: No evidence of ascites. US RUQ US 01/08 IMPRESSION: 1. Cirrhosis with severe hepatic steatosis. 2. Focal asymmetric gallbladder wall thickening most suggestive of adenomyosis. Gallbladder sludge.No pericholecystic fluid or sonographic Galeano's sign to suggest acute cholecystitis. 3. Normal size common bile duct measuring 5 mm. Mild intrahepatic biliary dilatation is noted. CXR 01/09 Impression: CorPak tube is in the antrum. Examination is otherwise limited. Consults GI Ortho Resident's Assessment/Plan 36M hx etoh use d/o presenting with LUE swelling and pain. Cardiovascular #Systolic murmur -likely flow murmur. Monitor for now. Neuro/Psych #EtOH use d/o #Severe alcohol withdrawal -last drink Thursday evening -CIWAs -precedex gtt -Pt remains intermittently agitated on precedex gtt; in order to facilitate success of MR scan, will attempt to wean from precedex gtt and augment withdrawal tx with clonidine patch 0.1 mg (lowest dose) -ativan 1mg IV q2h PRN for anxiety/agitation assoc with withdrawal. Respiratory: No acute issues Gastrointestinal #Acute alcoholic hepatitis (MDF = 43) #Indirect hyperbilirubinemia #Jaundice #Elevated INR #Suspected EtOH cirrhosis -hyperbili worsening since Paulino-Jarrod. DDx favors hemolysis - could be from hematoma formation from his injuries vs autoimmune. DDx also includes viral hepatitis, less likely -no ascites on US ascites survey -RUQ US - c/w cirrhosis, also found focal GB wall thickening c/w adenomyosis (a benign finding per search). CBD is normal 5mm. Mild interhepatic biliary dilatation. -elev LDH, low haptoglobin c/w hemolysis. retic index is lower (likely bone marrow suppression frometoh). 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 In the setting of this,will hold on additional transfusions as pt is HDS. Will consult hematology on further recommendations. -daily PT/INR -GI consulted, appreciate recs -2 Large bore PIVs -transfuse Hb <7 -lactulose BID -folic acid and thiamine supplementation daily -vitamin K per GI Renal/ #Hyponatremia - improving with IV hydration -likely hypovolemic given hx emesis -improved with IVF. Cont LR as below for plan for rhabdo Monitor UO closely Rosales: absent Infectious Diseases #Hypothermia #Possible cellulitis of chest wall -less likely cellulitis given exam and CT findings, most suggestive of edema, however will empirically tx with ceftriaxone and monitor closely -will continue CTX given hypothermia noted this AM, may be a manifestation of infection. Endocrine Goal glc 140-180, check q6h while NPO #Nutrition -due to encephalopathy from etoh wdl, place corpak and start tube feeds Hematology/Oncology #Acute macrocytic anemia --- suspected hemolytic -with no overt GIB. -monitor for overt GIB -s/p 1u pRBC from [place], did not increment appropriately - only 6.9 --> 7.2 after the unit of blood. -elev LDH, low haptoglobin c/w hemolysis. retic index is lower (likely bone marrow suppression frometoh). 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 In the setting of this,will hold on additional transfusions as pt is HDS. Will consult hematology on further recommendations. -check cbc q12h -vitamin b12, folate --- wnl -iron studies --- not reliable given recent pRBC infusion at [place] - Large bore PIVs -transfuse Hb <7 -TSH elevated, but subsequent T4 wnl -- subclinical hypothyroidism. #Thrombocytopenia -as sequelae of cirrhosis Musculoskeletal #LUE swelling 2/2 trauma -ortho consulted, appreciate recs: no fx on plain films. Ortho has ordered MR Nadia elbow -will f/u ortho recs -Tube Feeds #Rhabdomyolysis - mild -CK 700s -hydrate with LR @ 150cc/h -daily CK F (feeding/fluids): start tube feeds A (analgesia): tylenol with 2g daily limit. S (sedation): n/a T (thromoboprophylaxis): SCDs H (head up position): 30 U -(ulcer prophylaxis): nexium BID G (glycemic control): as above S (spontaneous breathing trial): n/a B (bowel care): prn I (indewelling catheter removal): none D (deescalation of antibiotics): ctx Social- dad Rich [phone] and mom Code Status: Full Code Dispo: MICU Staffed with attending shoe cobbler Dr. Marino. Ivy Chua MD Internal Medicine PGY-3 * Bang Jameson RN - 01/09/2022 5:05 AM EDT Critical Hgb of 6.7 and Hct [address] Police [address] Dr[address] Police Winston read back critical result. RN will continue to monitor. * Bang Jameson RN - 01/08/2022 9:40 PM EDT Block Chart Documentation for Emergent/Urgent Drug Titration Patient Name: Will Anderson Date: January 08, 2022 Medication used: Dexmedetomidine HCl (PRECEDEX) infusion - Started at 0.2 mcg/kg/hour, Ending dose:0.8 mcg/kg/min, Maximum dose during titration: 0.2 mcg/kg/min Physiological parameter evaluated to guide dose adjustment: for sedation meds: Target RASS is 0 to negative 1 Start time of block chart Documentation: 2128 End time of block chart Documentation: 2200 Provider notification and/or presence during emergent/urgent titration: Yes Provider/LIP: Dr. Franks Check Cosign Required box at upper left portion of note template. * Remberto Little RN - 01/08/2022 5:29 PM EDT Full Code NEURO: Restraints: No. Frequent Neurochecks: Yes. Still needed: No Nursing Issues: N/a CARDIAC IV access/Lines: 2x PIV Lines needing D/C d n/a AM labs: Yes Infusions: n/a Infusions needed D/C (off for more than 24 hours): n/a Nursing Issues: n/a PULMONARY: Spontaneous Breathing Trial: No Orders needing discontinue: No Nursing Issues (Vent, Wean, Oxygen) RA GI/: Rosales: No. External Catheter: No : Diet: NPO Do medications have proper route (OG, PEG, NG, PO): No Nursing issues (CVVH, I&O s ) n/a SKIN: Device management: n/a Wound consult: No Nursing issues (specialty bed, new skin concern, skin care orders etc..): n/a MD note in for stage III injury: No PSYCHOSOCIAL: Family meeting: n/a Social work or Care management needs: n/a Pain management: n/a Nursing concerns: n/a DISPOSITION: Transfer: No Discharge: No Can patient be transferred to lower level of care: No Criteria for transfer (stable H&H etc.): n/a Nursing concerns: n/a OVERNIGHT CONCERNS: n/a NOTES REGARDING PLAN OF CARE: n/a BARRIERS TO PLAN OF CARE: n/a DEPUTY MANAGER RN DAY SHIFT RN Chao * Lisa Macedo - 01/08/2022 1:33 PM EDT [facility] Spiritual Care Services Services provided for: Patient and Family Services initiated by: Staff Supervisor Welding Equipment Repairer Reason for services: Initial visit Narrative: Supervisor Welding Equipment Repairer knocked and entered patient's room to introduce self and share availability of spiritual care. Patient was sitting up in bed, awake and alert, visiting with his parents. Patient was polite and appreciative of visit but stated he had no spiritual care needs at this time. Interventions: Introduction of service Outcome: Patient aware of chemistry physics teacher availability Plan of Care: Follow-up not anticipated Lisa Macedo MDiv Staff Supervisor Welding Equipment Repairer, (she/her/hers) Ext: [phone] Pager: [phone] documented in this [id number] Consult note* Keith Bolivar, OT - 01/16/2022 2:24 PM EDT OCCUPATIONAL THERAPY PROGRESS SUMMARY Patient seen from 2:13 PM to 2:21 PM on 10B unit for 8 minute treatment. Partial over lap with PT SUBJECTIVE: Patient Subjective/Goals Do you know when I will be able to go home? OBJECTIVE: Pain: 02/14 Pain Relief Interventions Implemented: Positioning Appearance: Finishing tx session with PT upon arrival, jaundice, (L) UE swelling noted, hep lock IV Behavior: Cognition: A&Ox4 UE Status: (R) UE WFL (L) UE impaired: WBAT however significant swelling Provided patient education on AROM of (L) UE Self Care: Assistance Level NA Dep Max Mod Min CG CS DS WY I Set-Up Cues Comment Feeding x Meal tray at bedside Grooming/ Hygiene x Bathing: Upper Body x Bathing: Lower Body x Dressing: Upper Body x Don/doff gown in standing Dressing: Lower Body x Don/doff socks seated EOB Toileting x Per pt has been using restroom independently w/o assistance. Able to manage per-care and clothing Toilet Transfers x Per pt has been using restroom independently Bed Transfer x Sit to stand w/o device Bed Mobility x EOB to supine Endurance for Self Care: WFL Patient/Family Education: Instructed Patient in roles of therapy. DME: With Patients permission ordered no equipment via [employer] Order. If any questions contact [facility] DME Provider at [phone]. 6 Clicks Daily Activity OT 01/16/2022 Help from another person Eating meals 4 Help from another person taking care of personal grooming 4 Help from another person bathing 4 Help from another person putting on and taking off regular upper body clothing 4 Help from another person putting on and taking off regular lower body clothing 4 Help from another person toileting 4 OT 6 Clicks Score 24 6 Click Score Guidelines: 1 - Unable = Total/Dependent Assist 2 - A lot = Max/Moderate Assist 3 - A little = Minimum/Contact Guard Assist/Supervision 4 - Non = Modified [place]/Independent ASSESSMENT: ASSESSMENT: Will Anderson is performing functional mobility and ADLS at baseline. No further need for OT at the acute care level. Patient is functionally appropriate for discharge home oncemedically cleared. Recommend Outpatient Occupational Therapy for (L) UE. Goals (to be achieved by discharge from acute care): Patient will feed self with Close supervision MET Patient will perform grooming with Contact Guard Patient will dress upper body with Contact Guard MET Patient will dress lower body with Minimal assistance MET Patient will perform bed mobility with Close supervision Patient will perform bathing with Minimal assistance Patient will perform toileting with Minimal assistance MET Patient will perform bed transfers with Contact Guard MET Patient will perform commode transfers with Contact Guard Patient will increase ROM in left UE for max level of ADL independently MET Patient will demonstrate orientation to person, place, date, and time with environmental cues MET Patient will demonstrate safety awareness as evidenced by compliance with NWB (L)UE throughout all functional transfers/activities/ADLs Report reduced pain level to allow for participation in ADL/IADL Patient will demonstrate comprehension of edema management techniques for (L)UE by initiating proper positioning techniques with set-up. PLAN: Continue with Plan as per Initial Evaluation. Keith Bolivar OTR/L NA = Not Assessed, I = Independent, WY = Modified Independent, Sup = Supervised, Set up = Physical Assistance for Set-up Only, Min = Minimal Assistance, Mod = Moderate Assistance, Max = Max assistance; Dep = Dependent; AROM = Active Range of Motion;PROM=Passive Rangeof Motion; MMT = Manual Muscle Test; Shld= Shoulder; Add = Adduction; Abd = Abduction * Yisel Zaragoza, PT - 01/16/2022 2:20 PM EDT PHYSICAL THERAPY PROGRESS SUMMARY Patient seen from 2:06pm to 2:14pm on 10B unit for 8 minute treatment. SUBJECTIVE: Patient Subjective/Goals: I don't really want to get up. Patient was agreeable with encouragement CLINICAL UPDATE per ortho - No surgical intervention planned. Patient is not a surgical candidate. MRI cancelled. - WBAT LUE - PT/OT for ROM, strengthening exercises OBJECTIVE: Appearance: IV and jaundice Behavior: Awake Pain: Site/Location: LUE; Pain Scale: 6/10 Pain Relief Interventions Implemented: Positioning and Rest Mobility NA Dep Max Mod Min CG CS DS WY I Comment Roll to right sidelying x Roll to left sidelying x Sidelying to sit x Sit to/from stand x Walking on level surface x 300 feet with no device Gait Analysis: WNL with no marked deviations Stairs x 4 stairs x 3 with intermittent use of rail Stand to sit x Functional Endurance: impaired Sitting Balance: Static:good Dynamic:good Standing Balance: Static: good without assistive device Dynamic:good without assistive device Patient/Family Education: Instructed Patient in roles of therapy. Patient up seated at edge of bed with call light in reach. OT in to see patient after PT session. DME: With Patients permission ordered no equipment via [employer] Order. If any questions contact [facility] DME Provider at [phone]. 6 Clicks Basic Mobility PT 01/16/2022 Difficulty turning over in bed 4 Difficulty sitting down and standing up from a chair with arms 4 Difficulty moving from lying on back to sitting on the side of the bed 4 Help from another person moving to and from bed to a chair 4 Help from another person to walk in hospital room 4 Help from another person climbing 3-5 steps with a railing 4 PT 6 Clicks Score 24 6 Click Score Guidelines: 1 - Total = Requires total assistance, or cannot do at all. 2 - A lot = Requires a lot of help (maximun to moderate assistance) Can use assistive devices. 3 - A little = Requires a little help (supervision, minimal assistance) Can use assistive devices. 4 - None = Does not require any help and does the activity independently. Can use assistive devices. ASSESSMENT: Patient is functionally appropriate for discharge home once medically cleared. No further Physical Therapy services recommended at this time. Recommend Outpatient Physical vs OccupationalTherapy for left complete vs partial distal biceps tendon rupture. (Patient will only need to follow up with one service for additional rehab) New Goals (to be completed by discharge from acute care): NWB LUE ALL GOALS MET 1. Patient will improve bed mobility to independent 2. Patient will perform sit to/from stand with independence. 3. Patient will ambulate 150 feet with independence. 4. Patient will ascend/descend 12 stairs with unilateral rail and modified independence. 5. Patient will increase ROM/Strength/Endurance/Balance to allow for above goals. 6. Patient will achieve acceptable level of pain control to allow participation in therapy. PLAN: DC acute PT Yisle Zaragoza PT NA = Not Assessed, I = Independent, WY = Modified Independent, Sup = Supervised, Set up = Physical Assistance for Set-up Only, Min = Minimal Assistance, Mod = Moderate Assistance, Max = Maximal assistance; Dep = Dependent; AROM = Active Range of Motion; PROM = Passive Range of Motion; MMT = Manual Muscle Test * Petar Calvo, PT - 01/15/2022 9:40 AM EDT PHYSICAL THERAPY PROGRESS NOTE Pt seen x17 minutes on MICU on CCP3W for functional mobility training. Time in: 9:23 Time out: 9:40 SUBJECTIVE: Pt reports that he plans to discharge to either his mother's or father's house. States each house has steps to enter however a handrail is available at each home. Pt expressed desire to have corpak removed as it has been irritating his nose. Expressed desire to eat stating, I'd have more energy ifI had more calories. OBJECTIVE: Appearance: Pt resting in recliner when therapist entered the room. Pt with EKG, BP cuff, LUE dressing, and PIV in place. L hand edema with blister on lateral aspect of pt's 5th digit noted. RN notified. Behavior: Calm, appropriate, cooperative. Pain: -Ratin/10. -Location: L hand. -Occurrence: at rest. -Relief Interventions Implemented: notified RN who administered pain medication prior to therapist mobilizing pt. PT assisted pt in elevating his LUE via pelon pillow.. Mobility: NA Dep Max Mod Min CG CS DS WY I Comment Rolling x Supine<>sit x Sitting trial x Transfer x Sit<>stand x Without an assistive device. Standing trial x x2 minutes in unsupported static standing. Ambulation x 400 feet without an assistive device. Pt demonstrated step-through gait pattern with improved steadiness with continued practice. Stairs x 12 stairs with unilateral rail. Pt negotiated stairs with a [id number] pattern. Education: Instructed pt in roles of therapy. Reviewed RUE NWB status and use of pelon pillow to reduce swelling in limb. Vitals: -Lying in bed at beginning of therapy session: HR: 95 bpm; BP: 132/69 (85) mmHg. -With mobility: SpO2: 100% on room air; HR: 113 bpm. Progressive Mobility Level: 4 6 Clicks Basic Mobility PT: Date Time Difficulty turning over in bed Difficulty sitting down and standing up from a chair with arms Difficulty moving from lying on back to sitting on the side of the bed Help from another personmoving to and from bed to a chair Help from another person to walk in hospital room Help from another person climbing 3-5 steps with a railing PT 6 Clicks Score 01/15/2022 0940 4 3 3 3 3 3 19 6 Click Score Guidelines: 1 - Unable = Total/Dependent Assist 2 - A lot = Max/Moderate Assist 3 - A little = Minimum/Contact Guard Assist/Supervision 4 - Non = Modified [place]/Independent Pt resting in recliner at end of treatment session with chair alarm in place and call light in reach. Pt instructed to call for staff assistance prior to mobilizing. Pt verbalized good understanding.RN made aware of pt's response to treatment, mobility status, and position in room. ASSESSMENT: Pt with improved ability to mobilize and is functionally appropriate for discharge home once medically cleared. Will continue to follow. Recommend Outpatient Physical Therapy. Recommend Orthopedics consult. Recommend elevation of LUE via pelon pillow at all times. Previous Goals: NWB LUE. ALL GOALS MET Patient will achieve acceptable level of pain control to allow participation in therapy. Patient will increase bed mobility to close supervision Patient will perform sit to/from stand with contact guard assistance Patient will ambulate 50 feet with contact guard assistance Patient will increase ROM/Strength/Endurance/Balance to allow for above goals. Patient/Family independent with exercise program/precautions. New Goals (to be completed by discharge from acute care): NWB LUE 1. Patient will improve bed mobility to independent 2. Patient will perform sit to/from stand with independence. 3. Patient will ambulate 150 feet with independence. 4. Patient will ascend/descend 12 stairs with unilateral rail and modified independence. 5. Patient will increase ROM/Strength/Endurance/Balance to allow for above goals. 6. Patient will achieve acceptable level of pain control to allow participation in therapy. PLAN: Continue with PT per POC. Petar Calvo PT, DPT Board-Certified Clinical Specialist in Neurologic Physical Therapy Pager: [phone] AAROM = active assisted range of motion CGA = contact cuard assistance LE = lower extremity LLE = left lower extremity LUE = left upper extremity maxA = maximum assistance [place] = minimal assistance MMT = manual muscle test modA = moderate assistance Kathleen = modified independent N/A = not applicable NT = not tested NWB = non-weight bearing OOB = out of bed PROM = passive range of motion RLE = right lower extremity RUE = right upper extremity TTWB = toe-touch weight bearing UE = upper extremity * Mehreen Raza, RD - 01/14/2022 1:06 PM EDT Images from the original note were not included. Nutrition Inpatient Assessment 5' 7 Admit wt 67.9 kg Current wt 62.0 kg BMI 21.41 No recent wt hx 2013 70.3 kg CBC (last 3 years, up to 5 values) (Last 5 results in the past 3 years) WBC RBC Hgb Hct MCV RDW Plt 01/14/22 0355 7.3 1.91 7.3 21.3 112 24.1 65 01/13/22 0252 7.3 1.76 6.7 19.3 110 24.4 67 01/12/22 1655 7.8 1.73 6.6 19.5 113 25.3 69 01/12/22 0340 8.0 1.72 6.5 18.7 109 25.4 59 01/11/22 1430 7.2 1.61 6.2 17.6 109 24.8 88 Component 01/08/2022 01/09/2022 Iron 145 %SAT 68 (H) TIBC 214 (L) Transferrin, Serum 153 (L) Retic % 5.2 (H) Retic # 0.10 (H) Immature Retic Fract 0.56 (H) Lactate 1.1 Folic Acid, Serum 13.9 TSH (high sens.) 6.627 (H) Vitamin B12 1,299 Ferritin 829.1 (H) T4 (Thyroxine), Free 0.88 Basic Metabolic Panel Na K Cl CO2 Gap Glu BUN Cr Ca Mg PO4 01/14/22 0355 136 3.4 101 27 11 136 6 0.44 Comment: Grossly icteric; may falsely decrease creatinine 8.2 01/13/22251 135 3.4 99 29 10 130 6 0.40 Comment: Grossly icteric; may falsely decrease creatinine 8.1 01/12/22 0341 132 3.2 98 26 11 147 6 0.39 Comment: Grossly icteric; may falsely decrease creatinine 7.9 LFT's (last 3 years, up to 5 values) (Last 5 results in the past 3 years) T Prot Albumin D Bili T Bili Alk Phos ALT AST 01/14/22354 6.4 2.6 2.20 11.5 Comment: Elevated bilirubin may falsely lower creatinine 177 62 104 01/13/22251 6.2 2.6 2.10 11.4 Comment: Elevated bilirubin may falsely lower creatinine 169 63 124 01/12/22 034 6.4 2.6 2.10 11.1 Comment: Elevated bilirubin may falsely lower creatinine 148 61 131 01/11/22 0116 5.7 2.6 2.20 11.4 Comment: Elevated bilirubin may falsely lower creatinine 95 57 143 01/10/22 0353 6.0 2.7 2.60 11.1 Comment: Elevated bilirubin may falsely lower creatinine 87 54 147 Fingerstick Glucose (last 72 hours) Glucose 01/14/22 0956 143 Comment: Notified IRENA NICHOLAS MD Follow Protocol 01/14/22 0355 154 Comment: Follow Protocol 01/13/226 185 Comment: Notified IRENA NICHOLAS MD 01/13/22 1551 226 01/13/22 0935 152 Comment: Notified IRENA NICHOLAS MD 01/13/22 0255 140 01/12/22 2217 140 01/12/22 0339 157 Comment: Follow Protocol 01/11/222124 167 Comment: Follow Protocol No results found for: HBA1C Arterial Blood Gases None Vital sign ranges over the past 24 hours (retrieved 01/14/2022 at 1:06 PM): Tmax (24 hours): 99.3 F (37.4 C) Pulse Av.4 Min: 76 Max: 93 Systolic (24hrs), Av , Min:99 , Max:151 Diastolic (24hrs), Av, Min:52, Max:87 MAP (mmHg) Av.6 mmHg Min: 72 mmHg Max: 106 mmHg Resp Av.7 Min: 11 Max: 18 SpO2 Av.8 % Min: 87 % Max: 98 % Nutrition Focused Physical Exam Muscle loss: [place] region: mild depression Clavicle region: visible but not protruding Scapula region: somewhat square Hand: mitts Anterior thigh: thin, line just visible Posterior calf: well developed Fat loss: Orbital region: somewhat sunken Tricep/bicep region: decreased depth Rib/back region: chest full Edema: Location/Severity :LUE swelling Hair/Nails/Skin: pale, jaundice Eyes/Nose/Mouth: corpak BMs FMS -5.9 kg +4.8L Meds: clonidine, nexium, foflic acid inj, humalog ssi, lactulose, cerovite, rifaximin, b1 inj, B12 tab, prednisolone, precedex Current diet order: TFEED Peptamen 1.5 @ 20 ml/h increase by 10 ml/h q4 hr to goal of 60 ml/h continuously. No ordered water TF intake / 560 ml 5/6 1020 ml 5/7 1380 ml 5/8 1440 ml 5/9 1440 ml Est needs: current wt 9543-6556 kcal/d 30-35 kcal/kg 95 g pro/d 1.5 g/kg 1600+ ml/d 30+ ml/kg Assessment: 36 yo male with h/o ETOH abuse admitted with jaundice, anemia and elevated LFTs/bili. 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 Started on IV folic acid, thiamine and precedex gtt. Vit K given for coagulopathy. Imaging c/w cirrhosis and steatosis. Ortho c/s for elbow.Given IVF for rhabdo, started on tx for HE. He had not been having BM but improved after receiving lactulose. Corpak was placed 2/2 AMS and he has been tolerating goal TF. Taking some liquids po as mentation is slowly improving. B12 wnl, on supplement. Heme/onc consulted for anemia - suspected autoimmune so he was started on steroids. Copper low - since he is anemic and Copper is positive acute phase reactant would supplement while here. Nutrition Interventions: 1. TF: Peptamen 1.5 @ 60 ml/h continuously 2. Vitamins for DTs/ETOH Change B1 to 100 mg po daily 15 ml cerovite daily continue 500 mcg PO B12 daily Change folic acid to PO Start IV copper 2mg daily for 5 days (in 250 ml NS) -Call pharm if needed 3. Consider checking B6 (send in glove on ice) 6. Advance to regular diet as mentation allows Mehreen Raza MS RD [facility] Pager [phone] () Dietitian lead electrical controls engineer ([id number]) pager: [phone] * Chioma Butler, KIYA - 01/14/2022 12:23 PM EDT Associated Order(s): IP OCCUPATIONAL THERAPY SERVICE REQUEST OCCUPATIONAL THERAPY INITIAL EVALUATION Patient seen from 11:49am to 12:23pm on CCP3W (MICU) unit for 34 minutes (eval + tx). Admit Date: 01/08/2022 7:10 AM Reason for Admit: 36 y/o presents with 2 days of (L)UE pain. 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 Later the also had accidental chest wall trauma after he was working with a wrench and hit himself in the chest. Diagnosis: Decompensated cirrhosis EtOH withdrawal Hyponatremia Anemia Hepatic encephalopathy (L) biceps tendon rupture (partial vs complete - awaiting MRI) Imaging: XR HUMERUS & ELBOW LEFT (01/08): IMPRESSION: 1. No radiographic evidence of acute osseous abnormality of the left humerus or elbow. 2. Findings suggestive of diffuse subcutaneous edema. No elbow joint effusion. 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 SUBJECTIVE: Patient Subjective: When can I leave here? 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 Parents can assist 24/7 if needed. Patient lives in a 2 story home 4 stairs to enter. Full Bathroom on 1st level. Bedroom on 2nd level. Equipment available at home: none OBJECTIVE: Patient Identification: patient verbalizing his/her name and date of . and patient's id band and date of . Risks and benefits of occupational therapy: Patient informed of risks and benefits of treatment Appearance: Supine in bed, BP cuff, Corpak, (R)UE tasha wrapped, (R) hand bruising and dorsal edema, skinner pelts, Pulse Oximeter, IV, Flexiseal, male External Catheter System, Sequential Compression Devices (SCDs), Soft restraints (B)UE (d/c'd by RN), and Roll Belt Alertness: Intermittently lethargic Affect: flat Cooperation/Behavior: Impulsive, Cooperative with Cues, Impaired Insight, Impaired Judgement, Decreased Attention Communication: WFL Pain: Pain ratin/10, Location: (L) hand when I flex it Pain Relief Interventions Implemented: Positioning in Elevation, Gentle ROM to reduce edema, Rest PRN, and Notified Nurse Self Care: Assistance Level Dep Max Mod Min CG CS DS WY I Set-Up Comment Feeding x x +Corpak, but with clear liquid diet. CGA for tactile cues to correctly drink from pitcher with a straw. Noted pt attempting to tilt pitcher and water noted to spill out without pt appropriate response. Grooming/Hygiene x x Anticipate Bathing:UB x x Simulated Bathing:LB x x Anticipate Dressing:UB x x Doffed and donned gown seated EOB - increased time, v/c for initiation and sequencing Dressing: LB x x Anticipate Toileting x +External Catheter - pt able to notify therapist of need to urinate +FMS Transfers/Bed Mobility: Assistance Level Dep Max Mod Min CG CS DS WY I Set-Up Comment Toilet Transfers x Anticipate Bed Transfers x Sit to stand from bed Fxnl mobility around room without AD - unsteady, increased lateral weightshift, decreased speed Stand to sit on chair - v/c for hand placement Bed Mobility x Supine to sit - assist to scoot hips toward EOB Endurance for Self Care: Fair - VSS throughout Static Sitting Balance: Good Dynamic Sitting Balance: Fair UE Motor: Right Left Strength AROM PROM PROM AROM Strength 5/5 WFL WFL Shoulder WFL WFL NT 5/5 WFL WFL Elbow NT d/t resistance to extension 3/4 extension WFL flexion At least 3+/5 WFL WFL WFL Wrist WFL WFL At least 3+/5 4+/5 WFL WFL Digits WFL WFL 4/5 Comments: Pt reports he is (R) HD. Sensation: Pt reports numbness throughout (L) hand. Special Tests: +Hook test to (L) elbow Notes: awaiting MRI of (L)UE for formal diagnostics of biceps rupture Vision/Perception: Pt denies acute changes, however, recommend further formal assessment as commandfollow improves Cognition: Orientation: Oriented to person Place: [facility] Current Date: 01/16/85 Asked pt to state year: 2021 Follows Commands: one step commands, requires occasional repeat of directions and easily distracted Attention: difficulty with divided attention, easily distracted during task and difficulty with alternating attention Memory: Impaired - recalls incident 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 Patient/Family Education: 1) Instructed patient in roles of therapy 2) Instructed patient to be OOBTC for all meals to prevent further deconditioning 3) Instructed patient in recommendations to remain (L)UE NWB, in tasha wrap, and elevated to reduce edema and promote distal function. Pt requires max assist to place (L)UE in pelon pillow and only tolerates ~5 minutes prior to reporting numbness and discomfort. Patient up in chair with call light in reach. Chair alarm intact. Patient verbalized understanding to call for assistance prior to ambulating back to bed/bathroom. RN aware. DME: With Patients permission ordered no equipment via [employer] Order. If any questions contact [facility] DME Provider at [phone]. 4 Clicks Daily Activity OT 01/14/2022 Help from another person Eating meals 3 Help from another person taking care of personal grooming 3 Help from another person bathing 2 Help from another person putting on and taking off regular upper body clothing 2 Help from another person putting on and taking off regular lower body clothing 2 Help from another person toileting 1 OT 6 Clicks Score 13 6 Click Score Guidelines: 1 - Unable = Total/Dependent Assist 2 - A lot = Max/Moderate Assist 3 - A little = Minimum/Contact Guard Assist/Supervision 4 - Non = Modified [place]/Independent ASSESSMENT: Recommend further therapy services in an Inpatient Rehabilitation setting once medically cleared. Recommend PM&R consult. Anticipate patient will be able to tolerate 3 hours treatment/5 days week. Will continue to follow patient while in hospital as appropriate. Notified RN of concern with (L) dorsal hand pain, edema, and bruising. RN to notify medical team. Rehabilitation Potential: Good Problem List: decreased ADLs, impaired upper extremity motor function, decreased endurance, decreased functional transfers/mobility, impaired sensation, impaired balance, decreased cognition, impaired visual/perceptual skills, decreased home management tasks/IADLs, decreased functional activity tolerance and increased pain Goals (to be achieved by discharge from acute care): Patient will feed self with Close supervision Patient will perform grooming with Contact Guard Patient will dress upper body with Contact Guard Patient will dress lower body with Minimal assistance Patient will perform bed mobility with Close supervision Patient will perform bathing with Minimal assistance Patient will perform toileting with Minimal assistance Patient will perform bed transfers with Contact Guard Patient will perform commode transfers with Contact Guard Patient will increase ROM in left UE for max level of ADL independently Patient will demonstrate orientation to person, place, date, and time with environmental cues Patient will demonstrate safety awareness as evidenced by compliance with NWB (L)UE throughout all functional transfers/activities/ADLs Report reduced pain level to allow for participation in ADL/IADL Patient will demonstrate comprehension of edema management techniques for (L)UE by initiating proper positioning techniques with set-up. PLAN: Will Anderson will be seen 1-3 times a week. Treatment to include: Functional AROM/Strengthening, PROM / joint mobilization, coordination / dexterity training, sensory re-education and compensatory retraining, edema control, functional mobilitytraining, ADL retraining, functional endurance activities, work simplification / energy conservation, cognitive retraining, functional task simulation, adaptive equipment / compensatory strategy training, patient / family education and discharge planning and pain Management able to discuss the evaluation findings and treatment plan with the patient/family. The patient/family did participate in the development of plan and goals. Chioma Butler OTR/L NA = Not Assessed, I = Independent, WY = Modified Independent, Sup = Supervised, Set up = Physical Assistance for Set-up Only, Min = Minimal Assistance, Mod = Moderate Assistance, Max = Max assistance; Dep = Dependent; AROM = Active Range of Motion;PROM=Passive Rangeof Motion; MMT = Manual Muscle Test; UB = Upper Body; LB = Lower Body * Fe Perrin PT - 01/14/2022 11:35 AM EDT Associated Order(s): IP PHYSICAL THERAPY SERVICE REQUEST PHYSICAL THERAPY ACUTE EVALUATION Referral received, chart reviewed. Patient seen from 11:48 to 12:22p on CCP3W unit for 34 minutes. 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 Cirrhosis with severe hepatic steatosis. 2. Focal asymmetric gallbladder wall thickening most suggestive of adenomyosis. Gallbladder sludge.No pericholecystic fluid or sonographic Galeano's sign to suggest acute cholecystitis. 3. Normal size common bile duct measuring 5 mm. Mild intrahepatic biliary dilatation is noted. CT abd/pel with con Impression: -mild to mod nonspec body wall edema and/or cellulitis of the anterior chest and incompletely visualized L upper extremity -mod hepatic cirrhosis and steatosis with trace ascites in the pelvis -sludge and probably small stones within a mild to mod dilated GB, w/o other CT findings to suggestacute cholecystitis -mild inflammation superior to the pancreas, which may be pancreatitis or reactive. -moderate nonspecific wall thickening of the urinary bladder, which may be chronic or cystitis Imaging: XR HUMERUS & ELBOW LEFT (01/08): IMPRESSION: 1. No radiographic evidence of acute osseous abnormality of the left humerus or elbow. 2. Findings suggestive of diffuse subcutaneous edema. No elbow joint effusion. Past Medical and Surgical History: PMH: ETOH use Past Medical History: Diagnosis Date Closed fracture of angle of jaw (HCC) HLA B27 (HLA B27 positive) 2003 Followed with Rheum at [facility] Open fracture of other and unspecified part of body of mandible PSH: No past surgical history on file. Identification was verified by patient verbalizing his/her name and date of . and patient's idband and date of . Risks and Benefits of physical therapy: Patient informed of risks and benefits of treatment SUBJECTIVE: Patient Subjective: Why is it always the 10th? 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 and my liver enzymes Follows 1 step commands with cues Pain: Site/Location: L UE; Pain Scale: 3/10 Pain Relief Interventions Implemented: Positioning and Rest Passive ROM: see OT for UEs bilateral LEs WFL Strength/Active ROM: Grossly at least 4/5 throughout Sensation: no current numbness or tingling bilateral LEs Mobility:NWB LUE per ortho Supine to sit: minimal assistance Sitting balance: Fair Sit to stand: minimal assistance Ambulation/Gait: pt ambulated 20' x2 with BRIM EDGE TRIMMER, with minimal assist, decreased step length decreasedbalance, increased lateral sway Stand>sit with minimal assist decreased control Endurance: impaired Patient/Family Education: Instructed Patient in roles of therapy. Instructed Patient in roles, goals, treatment plan: demonstrated fair verbal understanding. Instructed patient in Exercise Program for Ankle pumps and Heel slides Pt instructed not to pull at medical devices: reaching for corpac asking if it needs to come out RN told therapy to keep restraints off for now Instructed to have assist with all mobility Patient up in chair with call light in reach. Chair alarm intact. DME: With Patients permission ordered no equipment via [employer] Order. If any questions contact [facility] DME Provider at [phone]. 6 Clicks Basic Mobility PT 01/14/2022 Difficulty turning over in bed 3 Difficulty sitting down and standing up from a chair with arms 3 Difficulty moving from lying on back to sitting on the side of the bed 3 Help from another person moving to and from bed to a chair 3 Help from another person to walk in hospital room 3 Help from another person climbing 3-5 steps with a railing 3 PT 6 Clicks Score 18 6 Click Score Guidelines: 1 - Total = Requires total assistance, or cannot do at all. 2 - A lot = Requires a lot of help (maximun to moderate assistance) Can use assistive devices. 3 - A little = Requires a little help (supervision, minimal assistance) Can use assistive devices. 4 - None = Does not require any help and does the activity independently. Can use assistive devices. ASSESSMENT: Will Anderson is a 36 year old yo male presented to OSH with LUE arm pain s/p fall admitted with decompensated cirrhosis, and close monitoring of suspected L biceps muscle rupture Diagnosis: hematoma, acute alcoholic hepatitis/Cirrhosis/Encp[ja;p[atju, suspected ETOH cirrhosis, indirect [id number], jaundice, elevated INR, thrombocytopenia, hyponatremia, rabdomyolysis Pt with decreased balance, endurance, functional mobility from baseline and decreased cognition Recommend further therapy services in an Inpatient Rehabilitation setting once medically cleared. Recommend PM&R consult. Anticipate patient will be able to tolerate 3 hours of therapy 5 days/week. Will continue to follow patient while in hospital as appropriate. Problems: Pain Decreased ROM/strength Decreased functional mobility Decreased endurance Decreased balance Decreased education in exercise/precautions Decreased cognition/behavior Impaired safety awareness Rehabilitation Potential: Good Goals ( by discharge from acute care): NWB LUE Patient will achieve acceptable level of pain control to allow participation in therapy. Patient will increase bed mobility to close supervision Patient will perform sit to/from stand with contact guard assistance Patient will ambulate 50 feet with contact guard assistance Patient will increase ROM/Strength/Endurance/Balance to allow for above goals. Patient/Family independent with exercise program/precautions. PLAN OF CARE: Frequency: Patient to be seen 1-3 times a week Interventions: Functional mobility ROM/Strengthening Home exercise program Discharge planning and equipment ordering as needed Patient /Family education The evaluation findings and treatment plan were discussed with the patient/family. The patient/family indicated understanding and agreement with the plan. Fe Perrin PT NA = Not Assessed, I = Independent, W[place] = Modified Independent, Sup = Supervised, Set up = Physical Assistance for Set-up Only, Min = Minimal Assistance, Mod = Moderate Assistance, Max = Max assistance; Dep = Dependent; AROM = Active Range of Motion; PROM = Passive Range of Motion; MMT = Manual Muscle Test; LE = Lower Extremity * Candido Lerner MD - 01/09/2022 12:45 PM EDT Associated Order(s): IP HEMATOLOGY-ONCOLOGY CONSULT Images from the original note were not included. Name: Will Anderson Encounter Date: 01/09/2022 PCP: No primary care provider on file. Reason for consult: hemolytic anemia Attending Provider: Dr. Weaver Hematology/ Oncology Consult Note History of Present Illness Will Anderson is a 36 year old male w/ PMH of EtOH abuse who initially presented to OSH (01/07) with LUE swelling and found to have acute bicep tendon rupture. Pt was evaluated by trauma surgery due to initial concern for compartment syndrome and fasciotomy was considered, but did not occur due to severe lab abnormalities including anemia w/ Hb: 6.9, hyperbilirubinemia up to 11, elevated LFTs, low plts, coagulopathy Received s/p 1u pRBC and 1u FFP and was transfered to [facility]- ICU for further management. On (01/08) PM pt noted to have severe EtOH w/d requiring precedex gtt. Anemia/tcp/coaguloapthy workup upon arrival was significant for elevated LDH: 369, Hapto<15, reitc:5.2%, Tb:11.2, direct: 2.5, Hb: 6.7, plt:52, INR:1.9, AYLIN: polyspecific+, IgG+ concerning for AIHA for which hematology was consulted. Additionally, 5/ evening course c/b severe etoh withdrawal requiring precedex gtt. Pt is currentlyseverely altered and unable to provide any history. Past Medical history Past Medical History: Diagnosis Date 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 Family History No family history on file. Social History Social History Socioeconomic History Marital status: Single Allergies Allergies Allergen Reactions Amoxacillin [Amoxicillin] Medications phytonadione iv piggyback 10 mg Daily esomeprazole 40 mg 2x Daily cefTRIAXone orderable 2,000 mg Q24H Antibiotic lactulose 20 g 3x Daily folic acid 1 mg Daily vitamin B-1 100 mg Daily dexmedetomidine (PRECEDEX) IV infusion orderable 1.4 mcg/kg/hr (01/09/22 1240) lactated ringers 150 mL/hr at 01/09/22 1200 LORazepam 2 mg Q2H PRN acetaminophen 500 mg Q6H PRN Review of Systems 12 Point ROS negative except HPI Physical Exam Blood pressure 99/55, pulse 69, temperature 95.54 F (35.3 C), resp. rate 13, height 5' 7 (1.702 m), weight 149 lb 11.1 oz (67.9 kg), SpO2 96 %. GEN: altered, somnolent, jaundiced HEENT: scleral icterus, NG tube, dry MM CV: sinus tachycardia Chest: upper respiratory airway sounds GI: soft, NT, ND, +BS, no rebound or guarding MSK: +LUE edema/swelling/erytehma, +b Skin: ecchymosis over R-chest wall and erythema of LUE Neuro: A&O x 0 Labs Basic Metabolic Panel Na K Cl CO2 Gap Glu BUN Cr Ca 01/09/22 0348 133 4.0 100 27 10 142 7 0.41 Comment: Grossly icteric; may falsely decrease creatinine 8.1 01/08/22 0853 129 3.7 95 22 16 91 5 0.44 Comment: Grossly icteric; may falsely decrease creatinine 8.1 CBC (last 3 years, up to 5 values) WBC RBC Hgb Hct MCV RDW Plt 01/09/22 0348 3.8 1.84 6.7 19.0 103 23.3 52 01/08/22 1825 5.4 1.94 7.3 20.3 105 24.0 52 01/08/22 0853 5.7 1.96 7.2 20.1 102 24.2 51 LFT's (last 3 years, up to 5 values) T Prot Albumin D Bili T Bili Alk Phos ALT AST 01/09/22347 6.0 2.7 2.50 11.2 Comment: Elevated bilirubin may falsely lower creatinine 92 47 124 01/08/22 0853 6.4 2.9 2.40 11.1 Comment: Elevated bilirubin may falsely lower creatinine 121 50 129 TSH (uIU/mL) Date Value 01/08/2022 6.627 (H) Imaging RUQ US (01/08) 1. Cirrhosis with severe hepatic steatosis. 2. Focal asymmetric gallbladder wall thickening most suggestive of adenomyosis. Gallbladder sludge.No pericholecystic fluid or sonographic Galeano's sign to suggest acute cholecystitis. 3. Normal size common bile duct measuring 5 mm. Mild intrahepatic biliary dilatation is noted. Assessment/Plan Will Anderson is a 36 year old male w/ PMH of EtOH abuse who initially presented to OSH (01/07) with LUE swelling and found to have acute bicep tendon rupture. Pt was evaluated by trauma surgery due to initial concern for compartment syndrome and fasciotomy was considered, but did not occur due to severe lab abnormalities including anemia w/ Hb: 6.9, hyperbilirubinemia up to 11, elevated LFTs, low plts, coagulopathy Received s/p 1u pRBC and 1u FFP and was transfered to [facility]- ICU for further management. On (01/08) PM pt noted to have severe EtOH w/d requiring precedex gtt. Anemia/tcp/coaguloapthy workup upon arrival was significant for elevated LDH: 369, Hapto<15, reitc:5.2%, Tb:11.2, direct: 2.5, Hb: 6.7, plt:52, INR:1.9, AYLIN: polyspecific+, IgG+ concerning for AIHA for which hematology was consulted. Given pt's with history of extensive EtOH cirrhosis with portal HTN, synthetic dysfunction, varices, pancytopenia likely multifactorial. Though labs concerning for AIHA, degree of hemolysis unclear given cirrhosis ( Hapto likely low at baseline, TB and LDH likely elevated at baseline). PB smear with increased reticulocytosis, mild-modspherocytes, rare bite cells, polychromasia consistent with hemolysis. Plan - obtain US spleen to assess for splenomegaly given possible extravascular hemolysis as well - check HIV, Hepatitis panel, RVP - check GEOVANNA w/ reflex PRETTY - monitor daily CBC w/ diff, LFT, Hapto, LDH - start on prednisone 1 mg/kg/day with slow taper - no need for blood transfusions at this time - supplement with folic acid 1 mg qday, MV Pt was seen and discussed with Dr. Weaver Thank you for the consult, will continue to follow daily Candido Lerner MD Hematology- Oncology PGY-V Pager [phone] Associated attestation - Rd Weaver MD - 01/10/2022 2:24 PM EDT Teaching Physician Note: I saw and evaluated the patient. I personally obtained the ferraro and critical portions of the historyand physical exam. I reviewed the fellow/resident's documentation and discussed the patient with the fellow/resident. I agree with the fellow resident's medical decision making as documented in the Fe llow/resident's note. * Mehreen Raza, RD - 01/09/2022 9:56 AM EDT Associated Order(s): NUTRITION NEW CONSULT Images from the original note were not included. Nutrition Inpatient Assessment 5' 7 Admit wt 67.9 kg BMI 23.45 No recent wt hx 2012 70.3 kg CBC (last 3 years, up to 5 values) WBC RBC Hgb Hct MCV RDW Plt 01/09/22 0348 3.8 1.84 6.7 19.0 103 23.3 52 01/08/22 1825 5.4 1.94 7.3 20.3 105 24.0 52 01/08/22 0853 5.7 1.96 7.2 20.1 102 24.2 51 Component 01/08/2022 01/09/2022 Iron 145 %SAT 68 (H) TIBC 214 (L) Transferrin, Serum 153 (L) Retic % 5.2 (H) Retic # 0.10 (H) Immature Retic Fract 0.56 (H) Lactate 1.1 Folic Acid, Serum 13.9 TSH (high sens.) 6.627 (H) Vitamin B12 1,299 Ferritin 829.1 (H) T4 (Thyroxine), Free 0.88 Basic Metabolic Panel Na K Cl CO2 Gap Glu BUN Cr Ca Mg PO4 01/09/228 133 4.0 100 27 10 142 7 0.41 Comment: Grossly icteric; may falsely decrease creatinine 8.1 01/08/22 0853 1.7 01/08/22 0853 129 3.7 95 22 16 91 5 0.44 Comment: Grossly icteric; may falsely decrease creatinine 8.1 LFT's (last 3 years, up to 5 values) T Prot Albumin D Bili T Bili Alk Phos ALT AST 01/09/228 6.0 2.7 2.50 11.2 Comment: Elevated bilirubin may falsely lower creatinine 92 47 124 01/08/22 0853 6.4 2.9 2.40 11.1 Comment: Elevated bilirubin may falsely lower creatinine 121 50 129 Fingerstick Glucose (last 72 hours) Glucose 01/08/22 0833 94 No results found for: HBA1C Arterial Blood Gases None Vital sign ranges over the past 24 hours (retrieved 01/09/2022 at 9:56 AM): Tmax (24 hours): 99.3 F (37.4 C) Pulse Av.8 Min: 59 Max: 120 Systolic (24hrs), Av , Min:71 , Max:137 Diastolic (24hrs), Av, Min:40, Max:122 MAP (mmHg) Av.8 mmHg Min: 49 mmHg Max: 129 mmHg Resp Av.1 Min: 9 Max: 21 SpO2 Av.5 % Min: 93 % Max: 100 % LUE swelling BMs none yet Meds: ceftriaxone, nexium, foflic acid inj, lactulose, b1 inj, vit K, precedex, LR at 150 ml/h Current diet order: NPO Est needs: current wt 2009+ kcal/d 30+ kcal/kg 95 g pro/d 1.5 g/kg 2009+ ml/d 30+ ml/kg Assessment: 36 yo male with h/o ETOH abuse admitted with jaundice, anemia and elevated LFTs/bili. 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 Started on IV folic acid, thiamine and precedex gtt. Vit K given for coagulopathy. imaging c/w cirrhosis and steatosis. Currently on IVF forrhabdo, plans for TF/med via corpak until mentation improves. B12 wnl, may have received supplementat OSH/ED. Nutrition Interventions: 1. TF: Peptamen 1.5 @ 20 ml/h increase by 10 ml/h q4 hr to goal of 60 ml/h continuously 2. Water 120 ml 4x/d and increase as needed 3. Vitamins for DTs/ETOH 250 mg IV Thiamine 1 time daily for 5 days, then give 100 mg po daily 15 ml cerovite daily 500 mcg PO B12 daily 1 mg IV folic acid daily x5 Monitor Mg, Phos daily and replace prn 4. Consider checking B6 (send in glove on ice) and copper levels Mehreen Raza MS, RD [facility] Pager [phone] () Dietitian lead electrical controls engineer (7a-7p) pager: [phone] * Robert Allen MD - 01/08/2022 5:01 PM EDT Associated Order(s): IP ORTHOPAEDICS GENERAL CONSULT Images from the original note were not included. rthopaedic Surgery Consult H&P Requesting Provider / Service: Ivy Chua CC: L harm pain HPI: 36 year old male with alcoholic liver disease presents to OSH for L arm pain. 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 He had immediate pain at that time. Over the next experienced significant swelling and ecchymosis of the entire UE, causing him present to [facility] ED. While in the ED, the pt was noticed to be jaundiced and was found to be in acute liver failure. He was transferred to [facility] MICU for escalation of care. Ortho was consulted due to c/f bicepstendon rupture. Pt denies N/T, or new onset weakness of the LUE. He is able to flex the elbow and supinate the hand, but has pain with movement. Onset: 4 days ago Location: L upper arm/elbow Duration: constant Aggravating factors: movement Pain ratin/10 Associated symptoms: none no history of VTE. Non smoker. PMH: Past Medical History: Diagnosis Date CLOSED FRACTURE MANDIBLE ANGLE OF JAW (HCC) OPEN FRACTURE OF MANDIBLE BODY NEC (HCC) No past surgical history on file. Social History Socioeconomic History Marital status: Single Allergies Allergen Reactions Amoxacillin [Amoxicillin] Current Facility-Administered Medications: vitamin K (PHYTONADIONE) 10 mg in sodium chloride 0.9 % 100 mL ivpb, 10 mg, Intravenous, Daily, Ivy Chua MD, 10 mg at 01/08/22 1649 esomeprazole (NEXIUM) 40 MG injection, 40 mg, Intravenous Push, 2x Daily, Ivy Chua MD, 40 mg at 01/08/22 1513 cefTRIAXone (ROCEPHIN) injection 2000 mg PREMIX, 2,000 mg, Intravenous, Q24H Antibiotic, Ivy Chua MD lactulose 20 g/30 mL oral solution, 20 g, Oral, 3x Daily, Ivy Chua MD, 20 g at 01/08/22 1513 folic acid 5 MG/ML injection, 1 mg, Intravenous Push, Daily, Ivy Chua MD, 1 mg at 01/08/22 1649 vitamin B-1 (thiamine) injection 100 mg, 100 mg, Intravenous Push, Daily, Ivy Chua MD, 100 mgat 01/08/22 1513 acetaminophen (TYLENOL) tablet, 500 mg, Oral, Q6H PRN, Ivy Chua MD Family History: non contributory Review of Systems: ROS No pertinent symptoms related to systems other than those stated above. O: Patient Vitals for the past 24 hrs: BP Temp Temp src Pulse Resp SpO2 O2 Device 01/08/22 1600 71/40 99.3 F (37.4 C) Oral 105 18 100 % Room air 01/08/22 1509 119/71 -- -- 85 12 -- -- 01/08/22 1500 -- -- -- 90 17 -- -- 01/08/22 1400 125/67 -- -- 74 9 96 % Room air 01/08/22 1300 129/96 -- -- 86 13 98 % -- 01/08/22 1200 137/78 -- -- 72 11 96 % Room air 01/08/22 1131 -- 98 F (36.7 C) Oral -- -- -- -- 01/08/22 1100 126/65 -- -- 86 13 95 % -- 01/08/22 1000 124/70 -- -- 104 15 93 % Room air 01/08/22 0900 128/69 -- -- 82 12 95 % -- 01/08/22 0830 109/76 98.7 F (37.1 C) Oral 99 15 96 % -- 01/08/22 0815 126/73 -- -- 89 13 93 % -- 01/08/22 0800 126/64 -- -- 89 15 94 % Room air 01/08/22 0706 -- -- -- 116 24 97 % -- 01/08/22 0705 -- -- -- -- -- -- Room air Intake/Output Summary (Last 24 hours) at 01/08/2022 1702 Last data filed at 01/08/2022 1600 Gross per 24 hour Intake -- Output 200 ml Net -200 ml PE: BP 71/40 Pulse 105 Temp 99.3 F (37.4 C) (Oral) Resp 18 Ht 5' 7 (1.702 m) Wt 147 lb 11.3 oz (67 kg) SpO2 100% BMI 23.13 kg/m GEN: AaOx4, NAD, intermittently appears drowsy/falling asleep, jaundiced skin HEENT: normocephalic atraumatic, EOMI, MMM, pupils equal and round, grossly icteric PSYCH: appropriate mood and affect RESP: nonlabored breathing on RA CARDIAC: Extremities WWP, RRR to peripheral palpation NEURO: CN 2-12 grossly intact SKIN: large ecchymosis over R anterior chest wall, grossly jaudice MSK: L upper extremity: - Skin intact. Diffuse swelling, edema, and ecchymosis greatest over the biceps, but throughout theentire LUE - Tender to palpation over anterior bicepts - elbow flexion and supination intact - ?positive hook test and benita sign, examination limited by significant edema - AIN/PIN/Uln motor fxn intact - SILT axillary, radial, median, ulnar - 2+ radial pulse. Cap refill < 2 seconds in all digits. - Compartments soft and compressible. A complete secondary exam was performed, and no injuries were identified other than those stated above. Labs: CBC/PT/INR WBC RBC Hgb Hct MCV RDW Plt PT aPTT INR 01/08/22 0918 1.78 01/08/22 0853 5.7 1.96 7.2 20.1 102 24.2 51 Basic Metabolic Panel Na K Cl CO2 Gap Glu BUN Cr Ca Mg PO4 01/08/22 0853 1.7 01/08/22 0853 129 3.7 95 22 16 91 5 0.44 Comment: Grossly icteric; may falsely decrease creatinine 8.1 Cardiac None Imaging: XR HUMERUS & ELBOW LEFT (01/08): IMPRESSION: 1. No radiographic evidence of acute osseous abnormality of the left humerus or elbow. 2. Findings suggestive of diffuse subcutaneous edema. No elbow joint effusion. ASSESSMENT/PLAN: 36M with possible partial vs complete L biceps tendon rupture. The arm was placed in gentle compression and a pelon pillow for edema control. - NWB LUE - Maintain TASHA and elevation with pelon pillow for edema control - MRI L ELBOW WO contrast (ordered) - This pt will be followed peripherally by the ortho hand service. - Don't hesitate to page/chat with questions This consult was staffed with senior resident Mihir Mcmullen DO and will be discussed with lead electrical controls engineer ortho hand attending. Dr. Welch. Robert Allen MD HÉCTOR Orthopaedic Surgery, PGY 2 Pager [phone] After 5 pm and on weekends, please page the on-call resident ([phone]) with questions or concerns. 01/08/22 This consult was seen and staffed within 30 minutes of the initial consult. * Abbey Alvarez MD - 01/08/2022 9:22 AM EDT Associated Order(s): IP GASTROENTEROLOGY CONSULT Images from the original note were not included. Department of Gastroenterology and Hepatology Consult H&P Note GI Attending Physician: Dr. Ulysses Solomon MD Patient: Will Anderson Location: [facility]-139/1 Reason for Consult: GI bleed, hyperbilirubinemia HPI Will Anderson is a 36 year old male with history notable for EtOH use disorder, tobacco use disorder for whom gastroenterology was consulted for GI bleed and hyperbilirubinemia. Patient is admitted to MICU as a transfer from [facility] where he initially presented for left arm trauma aftera fall on Thursday. Arm pain and swelling got progressively worse over last 48 hours which made him present to the ED. Presentation was concerning for compartment syndrome, is being followed by trauma and orthopedic surgery regarding the same. Also noted to be jaundiced on presentation with T Bili 7.5, D Bili 2, normal Alk Phos, AST 160, ALT 54 and INR 1.6. Plt ct low. CT A/P with concern for cirrhosis and cholelithiasis but no evidence of biliary dilation or concern for cholecystitis or choledocholithiasis. Endorses drinking 4 beers/day and significantly more when he was younger, has been drinking since he was 19 years old. Also chews tobacco but denies other illicit drug use. Notes worsening in sleep cycle and feeling fatigued. No confusion. Hgb noted to be 6.9 but he denies melena, hematochezia or he matemesis. Denies abdominal distension or LE edema. Last drink was day prior to presentation. Denies being in withdrawal in past. Also notes daily NSAID use, takes one Aleve everyday for MSK pain. NoAC use. Review Of Systems Positives as noted in HPI. All other systems were reviewed and negative. Medical and Surgical Histories Past Medical History: Diagnosis Date CLOSED FRACTURE MANDIBLE ANGLE OF JAW (HCC) OPEN FRACTURE OF MANDIBLE BODY NEC (HCC) Family History: Denies FH of CRC, liver disease or GI malignancy Social History: Significant EtOH use x 17 years, drinks 4 cans of beer daily. Chews tobacco daily. Denies THC or illicit drug use. Allergies and Current Medications Allergies Allergen Reactions Amoxacillin [Amoxicillin] No current facility-administered medications for this encounter. Physical Exam Blood Pressure 126/65 Pulse 86 Temperature 98.7 F (37.1 C) (Oral) Respiration 13 Height 5' 7 (1.702 m) Oxygen Saturation 95% General: tremulous, NAD HEENT: normocephalic, atraumatic, MMM, ++ scleral icterus Pulm: no increased WOB on room air, CTAB Card: RRR, no murmurs Abdomen: soft, nontender, nondistended, normal bowel sounds Extremities: no RENATO, LUE in wraps with significant swelling of left hand Skin: WWP, jaundiced, multiple bruises on torso, spider angiomata + Neuro: A&Ox3, no focal deficits, moving all extremities, mild asterixis Psych: appropriate mood and affect, linear thinking Labs Labs at OSH (copied from H&P) Alk phos 167 TBili 7.5 DBili 2.0 ALT 54 AST 160 Albumin 3.2 BMP Na 132 K 3.8 Cl 97 CO2 23 BUN 7 Cr < 0.3 Ca 8.3. AG = 12 Lipase 59 Lactate 3.3 --> 3.1 --> 2.4 --> 1.7 CBC WBC 7.4 / Hb 6.9 / Hct 19.3 / Plt 63 MCV 108 Neutrophils 44.8% CBC (last 3 years, up to 5 values) WBC RBC Hgb Hct MCV RDW Plt 01/08/22 0853 5.7 1.96 7.2 20.1 102 24.2 51 Basic Metabolic Panel Na K Cl CO2 Gap Glu BUN Cr Ca 01/08/22 0853 129 3.7 95 22 16 91 5 0.44 Comment: Grossly icteric; may falsely decrease creatinine 8.1 LFT's (last 3 years, up to 5 values) T Prot Albumin D Bili T Bili Alk Phos ALT AST 01/08/22 0853 6.4 2.9 2.40 11.1 Comment: Elevated bilirubin may falsely lower creatinine 121 50 129 INR (no units) Date Value 01/08/2022 1.78 (H) Imaging CT A/P done at OSH with concern for cirrhosis and cholelithiasis but no evidence of biliary dilation or concern for cholecystitis or choledocholithiasis. (no electronic report available) GI Procedures EGD NA Colonoscopy NA ASSESSMENT AND RECOMMENDATIONS Will Anderson is a 36 year old male with history notable for EtOH use disorder, tobacco use disorder for whom gastroenterology was consulted for GI bleed and hyperbilirubinemia. Hyperbilirubinemia is likely in setting of acute alcoholic hepatitis. Patients labs note thrombocytopenia, elevated INR and AST: ALT >2 with a hepatocellular pattern of liver injury. Patient may have underlying EtOH cirrhosis and will need to be worked up as an outpatient. Absence of direct hyperbilirubinemia or biliary dilation make an obstructive etiology of jaundice unlikely. Anemia is noted to be macrocytic and may be related to EtOH use - consider B12 and folate deficiency. Acute GI bleed is thought to be less likely given no reported overt GI bleeding. MELD-Na score: 27 at 01/08/2022 9:18 AM MELD score: 22 at 01/08/2022 9:18 AM Calculated from: Serum Creatinine: 0.44 mg/dL (Using min of 1 mg/dL) at 01/08/2022 8:53 AM Serum Sodium: 129 mmol/L at 01/08/2022 8:53 AM Total Bilirubin: 11.1 mg/dL at 01/08/2022 8:53 AM INR(ratio): 1.78 at 01/08/2022 9:18 AM Age: 36 years # Acute alcoholic hepatitis (MDF 43) # Jaundice # Thrombocytopenia # Elevated INR # EtOH use disorder # Suspected EtOH cirrhosis # Hepatic encephalopathy (Stage I) # LUE swelling 2/2 trauma - Maintain 2 large bore PIVs and transfuse for Hgb < 7, plt < 10 (< 50 if actively bleeding) - Check daily CBC, INR, BMP - Continue Nexium 40 mg IV BID - Watch for overt GI bleeding - Check daily CBC, BMP, LFT and INR - Check hepatitis serologies (Hep B surface Ag, surface Ab, core Ab; HepC Ab and quant by PCR; Hep A Ab) - Work-up macrocytic anemia with iron, TIBC, ferritin, B12, folate, LDH and haptoglobin - Order RUQ US with doppler - Bedside ascites survey and perform diagnostic paracentesis to r/o SBP if able - Challenge nutritional component of coagulopathy with IV Vit K 10 mg x 3 d - Patient was counseled on strict alcohol cessation - Start multi vitamin, zinc, thiamine and folate supplementation. [facility] assessors for alcohol withdrawal - Start daily lactulose to ensure 3 soft BMs/day - Low sodium and high protein diet - Agree with orthopedic consultation for LUE swelling - MDF is 43 which suggests poor prognosis. If soft tissue infection, viral hepatitis and SBP are ruled out, patient may benefit from prednisolone 40 mg daily - Will need outpatient Liver clinic follow up and EGD for variceal screening Discussed with GI attending, Dr. Ulysses Solomon MD Primary team updated. Please don't hesitate to reach out with questions or concerns. We will continue to follow with you. Personal Pager [phone] GI Consult Pager (nights and weekends) [phone] Abbey Alvarez MD Gastroenterology Fellow Division of Gastroenterology & Hepatology [facility] 01/08/22 Associated attestation - Ulysses Solomon MD - 01/09/2022 12:50 PM EDT Teaching Physician Note: I saw and evaluated the patient. I personally obtained the ferraro and critical portions of the historyand physical exam. I reviewed the fellow's documentation and discussed the patient with the fellow.I agree with the fellow's medical decision making as documented in the fellow's note. 36 yo man admitted with acute alcoholic hepatitis likely with underlying cirrhosis. He may be a candidate for steroids pending infectious workup. He also has injury/swelling of his right forearm and undergoing workup/treatment for that. In the meantime best supportive care, including with high protein, low sodium diet. No concern for GI bleed at this time but will need EGD in near future to screen for varices. Ulysses Solomon MD documented in this [id number] Hospital Discharge instructions* Instructions* Rosa Mensah RN - 01/15/2022 Images from the original note were not included. Patient Education Acute Pain Discharge Instructions, Adult About this topic Pain can be an unpleasant feeling that happens in any part of the body. It can be mild or very bad.You may feel this pain always or it may just come and go. It may be dull, sharp, or throbbing. Paincan last for a long time or a short time. Pain can cause upset stomach and throwing up. When you are in pain you may not feel hungry. You may feel nervous. Pain can be acute or chronic. Acute pain tells you there may be an injury and you need to take careof yourself. Chronic pain lasts for a long period of time. Treatment for pain will depend on the kind of pain and how much it hurts. What care is needed at home? Ask your doctor what you need to do when you go home. Make sure you ask questions if you do not understand what the doctor says. This way you will know what you need to do. Take your drugs safely. ? Take drugs only as directed and take only drugs ordered for you. Do not share drugs. Store your drugs safely. ? Keep drugs out of the reach of children and pets. A locked cabinet is the safest place to store drugs. ? Make sure you store your drugs in a safe location after every use. Set an alarm to remind you of the next dosing time rather than leaving the drug out to serve as a reminder. Ice and heat may be used to ease pain and help with swelling from muscle pain. ? Place an ice pack or a bag of frozen peas wrapped in a towel over the painful part. Never put iceright on the skin. Do not leave the ice on more than 10 to 15 minutes at a time. Use for the first 24 to 48 hours after an injury or workout. ? Heat may be used after the first 24 to 48 hours, but not right away. Do not use heat with sharp pain or after an acute injury. Heat can make swelling worse. If your doctor tells you to use heat, put a heating pad on your painful part for no more than 20 minutes at a time. Never go to sleep with aheating pad on as this can cause amezquita. ? Elevating your painful body part on pillows may help lessen pain and swelling. Try to stay calm. Anxiety and stress may make your pain worse. Try using massage, relaxation, breathing exercises, yoga, kathie chi, and music therapy. Think about other ways to help with pain. Some of them are acupuncture, biofeedback, or meditation.Ask your doctor if these may help manage your pain. What follow-up care is needed? Your doctor may ask you to make visits to the office to check on your progress. Be sure to keep these visits. You may also need to see a: ? Physical therapist to teach you exercises to help you stretch ? Occupational therapist to help you find ways to make you more comfortable doing your regular daily activities What drugs may be needed? The doctor may order drugs to: Help with pain and swelling Take your drugs as ordered by your doctor. Some of these drugs can be habit forming and may cause side effects. Will physical activity be limited? Physical activities may be limited due to the pain that you have. What changes to diet are needed? Changes in food or diet may depend on what kind of pain you have. Talk with your doctor about what kind of food is good for you. What problems could happen? Not able to function well Irritation, sadness, anxiety, and low mood Trouble sleeping Sexual dysfunction Loss of appetite What can be done to prevent this health problem? The best thing you can do is talk to your doctor about any pain you have. Your doctor can help you make a plan to lower your pain. Some causes of pain get better by staying active and working out. Your doctor may send you to a physical therapist to help you work on strength exercises and stretching. When do I need to call the doctor? Signs of an overdose. These include very slow breathing, shallow breathing or no breathing, unable to awaken patient, slurred speech. Call for emergency help right away. Signs of infection. These include a fever of 100.4 F (38 C) or higher, chills, very bad sore throat, ear or sinus pain, pain or blood with passing urine. Very bad upset stomach, throwing up, or belly pain; not able to eat or drink anything Back or side pain that does not go away and you don t know why. (You have not done any hard exercises or other activity that may have pulled a muscle.) Not able to move or do daily activities Very bad pain that is not helped by drugs You are not feeling better in 2 to 3 days or you are feeling worse Helpful tips If you think someone has overdosed: ? Seek emergency help right away. ? Let them know you think the person has overdosed. ? Do rescue breathing (mouth to mouth) if the person is not breathing. ? Lay the person on their side. ? Stay with the person until help comes. is more common when no one is there to help. Get rid of any drug that is no longer needed. Check with your pharmacy to learn about how to get rid of unused drugs. Find a take-back program. ? Check with your pharmacy, trash, or recycling service to learn about take-back programs in your area. Also, check with local police departments. ? These programs will take your drugs that are out of date, or not wanted or needed any longer. Throw drugs away in your trash. Before throwing them away you should: ? Check with your trash service to make sure it is OK to throw drugs away in your trash. ? Remove tablets and capsules from their original holders and mix in coffee grounds, dirty kayce litter, or sawdust. ? Note: Do not crush tablets or capsules. ? Add salt, flour, or spices to the bottles of liquid drugs. Tape lids with heavy tape. ? Seal in a plastic bag or container. ? Throw the container or bag away in your trash. ? Medicine patches should be folded sticky sides together before throwing away. A few drugs can harm or kill people or pets with one dose. It is important for you to get rid of these kinds of drugs as soon as you can. Strong pain pills are an example of this kind of drug. If youcannot find a take-back program, talk to your pharmacist to see if it is safe to flush the drug down a toilet or sink. Teach Back: Helping You Understand The Teach Back Method helps you understand the information we are giving you. After you talk with the staff, tell them in your own words what you learned. This helps to make sure the staff has described each thing clearly. It also helps to explain things that may have been confusing. Before going home, make sure you can do these: I can tell you about my condition. I can tell you what may help ease my pain. I can tell you what I will do if my pain is not helped by my drugs. I can tell you about signs of an overdose and what to do if they happen. Last Reviewed Date 2019-10-17 Consumer Information Use and Disclaimer This information is not specific medical advice and does not replace information you receive from your health care provider. This is only a brief summary of general information. It does NOT include all information about conditions, illnesses, injuries, tests, procedures, treatments, therapies, discharge instructions or life-style choices that may apply to you. You must talk with your health care provider for complete information about your health and treatment options. This information should not be used to decide whether or not to accept your health care provider s advice, instructions or recommendations. Only your health care provider has the knowledge and training to provide advice that is right for you. Copyright Copyright 2020 [employer]. and its affiliates and/or licensors. All rights reserved. You were admitted with several medical problems 1. Cirrhosis of liver - you should quit drinking alcohol. Follow up with liver doctor. You have been prescribed Patient Education Alcohol Abuse and Alcoholism Discharge Instructions About this topic Alcohol abuse is the misuse or overuse of beer, wine, or mixed drinks. You keep drinking even if itcauses you problems. You may drink until you get drunk. Over time, drinking too much alcohol can lead to your body needing the alcohol. This is called dependency. Alcohol dependence is also called alcoholism. This means your brain and body are physically addicted to alcohol. You have a strong need or cravings to drink alcohol. You cannot stop or limit your drinking once you start. You may have signs of withdrawal if you stop drinking. You need to drink more to get the same effect. Problems with alcohol happen when you drink too much, too fast, or too often. A drinking problem can change all parts of your life. Drinking too much alcohol can cause problems in your family, your home, and with your job or school. It can also cause problems with your financial, physical, and mental health. It can cause social and legal problems. You may injure or harm yourself or others if you are drunk. Alcoholism is a medical problem. Your doctor can diagnose it. You may have signs like you: Drink more or longer than you planned Want to cut down or stop and you are not able to Spend a lot of time drinking and feel sick after drinking Have trouble at home or with family, job, or school from drinking Still drink even with these problems Still drink even if you feel depressed, nervous, or have another medical problem Give up things you like to drink instead There are many treatment programs to help you quit. You may need counseling and medicines. You may be treated in a special recovery center, or you may go to a program while living at home. It may help you to join a support group. After you get out of treatment, you will need a good support plan to help keep you sober. Your focus will be on not drinking and working on how to live without alcohol. Women, older adults, people with mental health problems or other addictions are at a higher risk for very serious health problems because of their drinking. Talk with your doctor to learn about your risk. What care is needed at home? Ask your doctor what you need to do when you go home. Make sure you ask questions if you do not understand what the doctor says. This way you will know what you need to do. Start treatment by keeping a visit with your doctor. The doctor will talk to you about your drinking and help you to make a treatment plan. Your doctor may ask you to see other specialists, such as [facility], psychiatrist, social worker health services, or alcohol counselor. Stay sober. Get involved with a 12-step program to help. Plan ahead so you know what to do when youwant to take a drink. Ask your doctor, a sponsor, support group, family, and friends to help. Tell family and friends about your problem. ? They can help you avoid alcohol during your recovery. ? Try to be honest about your problems and how you feel. Tell them that your craving for alcohol isconstant. Decide who you may call for help if you are having a difficult time. ? Counseling for families may help you and your family to solve problems at home. Learn how to cope with stress. ? Take a slow deep breath, soak in a warm bath, listen to soothing music, or do some fun activities. ? Make some changes in your daily habits and get a new routine. Avoid people you used to drink with. Find friends who do not drink. ? Do things that you enjoy. Try gardening, walk with your pet, or talk with family or friends. Choose a healthy lifestyle. ? Eat a healthy diet. This includes eating whole grains, dairy products, fruits, and vegetables. ? Exercise and be active. When you are fit, you may have less anxiety, low mood, and stress. ? Get the right amount of sleep. This may be hard at first. Find ways to stay sober: ? Find new things to do. You may be tempted to drink because you have nothing else to do. Find a job or part-time job that you enjoy. ? Join a support group. Take part in support group activities. It may help to have people you can lean on for comfort, encouragement, and guidance. ? Do volunteer work. Get involved in community events. ? Play sports, join a club, find an exercise program. What follow-up care is needed? Your doctor may ask you to make visits to the office to check on your progress. Be sure to keep these visits. Be honest with your doctor about your progress or problems at home. What drugs may be needed? The doctor may order drugs that are not addictive to: Prevent withdrawal signs Reduce cravings for alcohol Treat nutrition problems Will physical activity be limited? Physical activity may not be limited. Doing certain activities may help you keep away from alcohol. What problems could happen? Bleeding from your stomach Brain damage like memory loss, confusion, or loss of coordination Seizures Liver damage Pancreas damage Cancer of the mouth, esophagus, throat, liver, and breast Heart damage High blood pressure alcohol exposure if you are . No amount of alcohol is safe for women to drink. Your child may have brain damage, problems with learning or behaving from your drinking. What can be done to prevent this health problem? Avoid places, people, or situations that bring up thoughts of drinking. Avoid going to bars and clubs. Do not hang out with friends you used to drink with. Mingle with people who do not drink and who can support your recovery. Do not keep alcohol at home, in your car, or at work. Throw away all alcohol. If handling the alcoholic beverages triggers a craving, have a friend or family member remove them for you. When do I need to call the doctor? Signs of alcohol withdrawal. These include not thinking clearly, shaking, seeing or hearing things that are not there, irritable, feeling very nervous, or fast heartbeat. Go to the ER right away. You drank alcohol. Starting to drink again may be a problem. Getting treatment once may not be enough. Teach Back: Helping You Understand The Teach Back Method helps you understand the information we are giving you. The idea is simple. After talking with the staff, tell them in your own words what you were just told. This helps to makesure the staff has covered each thing clearly. It also helps to explain things that may have been abit confusing. Before going home, make sure you are able to do these: I can tell you about my condition. I can tell you what my plan is for staying sober. I can tell you what I will do if I am shaking or feeling nervous or irritable. Where can I learn more? National [place] of Alcohol Abuse and Alcoholism http://www.niaaa.nih.gov/alcohol-health/yzycfkks-xmxtleh-jeucwmqgovf/alcohol-use -disorders National Health Service https://www.nhs.uk/conditions/alcohol-misuse/ Substance Abuse and Mental Health Services Administration https://www.[facility].gov/find-help/national-helpline Last Reviewed Date 2017-12-02 Consumer Information Use and Disclaimer This information is not specific medical advice and does not replace information you receive from your health care provider. This is only a brief summary of general information. It does NOT include all information about conditions, illnesses, injuries, tests, procedures, treatments, therapies, discharge instructions or life-style choices that may apply to you. You must talk with your health care provider for complete information about your health and treatment options. This information should not be used to decide whether or not to accept your health care provider s advice, instructions or recommendations. Only your health care provider has the knowledge and training to provide advice that is right for you. Copyright Copyright 2020 [employer]. and its affiliates and/or licensors. All rights reserved. Patient Education Alcohol Use ? When Is Drinking a Problem? The Basics Written by the doctors and editors at [employer] How do I know if I am drinking too much? -- If alcohol is having a negative effect on your life, you are probably drinking too much. Answer these questions: Have you lost control of your drinking? For example, do you sometimes find that you drink more thanyou meant to? Do you need to drink larger and larger amounts to get the effect you want? Or do you get sick or feel physically uncomfortable if you cut down on your drinking? Have you lost your job, gotten in trouble with the law, or had problems with your friends or familybecause of alcohol? If you said yes to any of these questions, or if you just think you have a problem, mention it to your doctor or nurse. He or she can help you find out if you do have a drinking problem. Do not be embarrassed to talk with him or her about it. Alcohol problems are common. But there are treatments that can help. What happens if I keep drinking too much? -- People who drink too much can get serious liver and heart disease. They can get different types of cancer. And they can damage their brain. Plus, people who drink too much are more likely than people who do not to: Have car accidents Kill themselves Drown Be seriously hurt What is alcohol use disorder? -- Alcohol use disorder is basically the medical term for alcoholism or alcohol addiction. People who have alcohol addiction have 2 or more of the following problems. The more of these they have, the more severe their disorder. They end up drinking more alcohol than they planned to or for a longer time than they planned to. They wish they could cut down on alcohol, but they can't. They spend a lot of time trying to get alcohol, getting drunk, or recovering from being drunk. They crave or have a strong desire or urge to drink alcohol. Because of their alcohol use, they often don't do things that are expected of them, such as go to work or school, remember family events, and clean their home. They keep drinking even if it causes or worsens problems in their relationships or interactions with other people. They stop or cut back on important social, work, or fun activities they used to do. They keep drinking alcohol even in situations where it is dangerous to do so (such as while driving). They keep drinking alcohol even when they know they have a physical or mental problem that was probably caused or made worse by their drinking. They need to drink more and more to get the same effects they used to get with less. Or they get less effect from using the amount that used to get them drunk. This is called tolerance. They have withdrawal symptoms if they stop drinking alcohol after drinking for a long time. Withdrawal symptoms can include: ? Sweating or a racing heart ? Hand trembling ? Insomnia (not being able to sleep) ? Nausea or vomiting ? Seeing, feeling, or hearing things that aren't really there (these are called hallucinations ) ? Being restless ? Anxiety ? Seizures (these can be serious, even life-threatening) What treatments can help? -- People who have problems with alcohol can: See a counselor (such as a psychologist, social worker health services, or psychiatrist) Take medicines Take part in a support group such as Alcoholics Anonymous (sometimes called AA) All of these treatments can help, and they can be combined. There are a few different medicines doctors and nurses can use to treat alcohol problems. These medicines work in different ways. They can: Change the way your brain responds to alcohol so that it is less fun Reduce your craving for alcohol Make you feel sick if you do drink Help you feel less sick when you stop drinking Can I stop drinking on my own? -- Many people get over their drinking problem on their own. But people who have been drinking several days a week for weeks in a row should not try to cut down withoutthe help of a doctor or nurse. People who drink that much can if they stop or cut down on drinking too quickly. All topics are updated as new evidence becomes available and our peer review process is complete. This topic retrieved from [employer] on: Apr 04, 2020. Topic 49769 Version 9.0 Release: 28.4.6 - C28.294 2019 [employer] and/or its affiliates. All rights reserved. figure 1: What's a standard drink? * It can be difficult to estimate the number of standard drinks in a single mixed drink made with hard liquor. Depending on factors such as the type of spirits and the recipe, a mixed drink can contain from one to three or more standard drinks. Reproduced with content from: National Institutes on Alcohol Abuse and Alcoholism. Rethinking Drinking: Alcohol and your health. Available at: http://rethinkingdrinking.niaaa.nih.gov. Graphic 63524 Version 1828.0 Consumer Information Use and Disclaimer This information is not specific medical advice and does not replace information you receive from your health care provider. This is only a brief summary of general information. It does NOT include all information about conditions, illnesses, injuries, tests, procedures, treatments, therapies, discharge instructions or life-style choices that may apply to you. You must talk with your health care provider for complete information about your health and treatment options. This information should not be used to decide whether or not to accept your health care provider's advice, instructions or recommendations. Only your health care provider has the knowledge and training to provide advice that is right for you.The use of [employer] content is governed by the [employer] Terms of Use. 2020 [employer]. All rights reserved. Copyright 2020 [employer] and/or its affiliates. All rights reserved. Patient Education Biceps Tendon Rupture About this topic A tendon is a strong band of tissue that connects muscles to bones. The biceps tendons connect the parts of the biceps muscles to the bone in your shoulder and forearm. Your biceps help you bend and turn your arm and help keep your shoulder stable. If these tendons get stretched too much, one of them can tear. It can tear just a little or all the way. If the tendon tears all the way, this is a biceps tendon rupture. If you injure the part of your tendon near your shoulder it is a proximal biceps tendon rupture. Ifyou injure the part of your biceps near your elbow, it is a distal biceps tendon rupture. What are the causes? Overstretching the tendon Sports injury Heavy lifting Overuse What can make this more likely to happen? You may be more at risk for this if you: Take certain drugs for infection. Two of these are levofloxacin and ciprofloxacin. Have had steroid injections Have certain health problems like diabetes and arthritis Smoke Lift weights; are a rock climber, skier, gymnast, field agent, or business writer; or do other sports What are the main signs? Sharp pain in the upper arm A sudden pop or snap Swelling or bruising of the upper arm Less strength in one arm A bulge in one arm or dent close to your shoulder Trouble bending and twisting your arm How does the doctor diagnose this health problem? Your doctor will check your arm and shoulder and compare it to the other one. Your doctor may feel your arm to see how your muscles move. Your arm most often looks different. The doctor may order: MRI scan Ultrasound X-ray How does the doctor treat this health problem? Based on your age and how bad the injury is, your doctor will decide how to treat your problem. This may include: Rest Ice Limiting movement of your arm and shoulder Exercises Physical therapy (PT) You may need surgery to repair the tendon. What drugs may be needed? The doctor may order drugs to: Help with pain and swelling What can be done to prevent this health problem? Warm up slowly and stretch your muscles before you work out. Use good ways to train, such as slowlyadding how much weight you lift. Do not work out if you are overly tired. Take extra care if working out in cold weather. Stay active and work out to keep your muscles strong and flexible. Keep a healthy weight so there is not extra stress on your joints. Eat a healthy diet to keep your muscles healthy. Wear the right equipment when playing sports. Where can I learn more? [employer] https://orthoinfo.aaos.org/en/diseases--conditions/yxsbki-alojrp-lbee-at-the-elb ow Last Reviewed Date 2018-06-01 Consumer Information Use and Disclaimer This information is not specific medical advice and does not replace information you receive from your health care provider. This is only a brief summary of general information. It does NOT include all information about conditions, illnesses, injuries, tests, procedures, treatments, therapies, discharge instructions or life-style choices that may apply to you. You must talk with your health care provider for complete information about your health and treatment options. This information should not be used to decide whether or not to accept your health care provider s advice, instructions or recommendations. Only your health care provider has the knowledge and training to provide advice that is right for you. Copyright Copyright 2020 [employer] and its affiliates and/or licensors. All rights reserved. lactulose for hepatic encephalopathy. Take lactulose regularly to ensure atleast 2-3 soft bowel movements daily 2. Hemolytic anemia - your body is breaking down your blood cells causing severe anemia. You have been prescribed prednisone. Take prednisone 70 mg daily for 14 days and then 60mg daily until seen byhematology doctor. Take prednisone regularly as instructed by hematology doctor. Stopping prednisone without doctors instructions can cause serious side effects. You have been prescribed nexium ( for prophylaxis of peptic ulcers while on steroids) and bactrim (for prophylaxis to prevent infections while on steroids) 3. Left arm biceps rupture - elevate your left arm. Do not left anything heavy. Follow up with orthopedics doctor. Discharge Instructions Hand/Wrist/Elbow/Shoulder Surgery Activity Ok to be weight bearing as tolerated to left arm. Ok to work on range of motion and strengthening of elbow. Ice & Elevate The use of ice on your elbowwill help with both pain control and swelling. Continue with icing yourelbow on an as needed basis. Elevate your elbow above heart level as much as possible for the first 48 hours after surgery. Thiswill keep the swelling to a minimum and prevent throbbing and pain. Smoking and smokeless tobacco Tobacco use is known to interfere with wound and fracture healing and increase your pain. Do not smoke postoperatively. Please contact your surgeon's office for a referral to the smoking cessation program. Driving It is not advisable to drive a vehicle while you are on pain medication due to the possible side effects. However, once you are off pain medication and you feel that you are able to safely control the vehicle, you may drive. Appointments Your follow-up appointment is scheduled on No future appointments.. If you do not already have an appointment scheduled within two weeks of injury, please contact our office at the numbers listed below. Do not hesitate to call your surgeon with any questions or concerns at the numbers listed above. After business hours please call [facility] link and link knitting machine operator at and ask for the orthopeadicresident lead electrical controls engineer. For emergencies call [phone]. [facility] Upper Extremity and Hand Surgery Darci Allen, MD Enrique Ornelas, MD Poncho Devlin, MD Pool Villalobos, SUPERVISOR TITLE-DAYAMI Muhammad, MD Saroj Mojcia, MD Ulysses Roper, MD Stacy Romero, MD Ella Sawyer, PAMD Michael Ramsey, MD Татьяна Lorenz, PAOmarC Orthopaedic Surgery Nurse Line Orthopaedic Surgery Appointments For questions related to paperwork, please call Orthopaedic Surgery , Option 1 Patient Education Hepatic Encephalopathy Discharge Instructions About this topic Hepatic encephalopathy happens when the liver is no longer able to remove harmful toxins in the blood and they get to your brain. It is caused by other health problems that involve the liver. This condition causes short-term or lifelong damage of the brain. What care is needed at home? Ask your doctor what you need to do when you go home. Make sure you ask questions if you do not understand what the doctor says. This way you will know what you need to do. Take all drugs as ordered by your doctor. Eat a healthy diet. Exercise regularly. Do not drink alcohol. What follow-up care is needed? Your doctor may ask you to make visits to the office to check on your progress. Be sure to keep these visits. What drugs may be needed? Do not stop taking any drugs as told by your doctor. The doctor may order drugs to: Reduce effects of harmful toxins Fight an infection Stop bleeding Will physical activity be limited? You may have to limit your activity. Talk to your doctor about the right amount of activity for you. What changes to diet are needed? Lower the amount of protein you eat each day. This includes meat, fish, cheese, and eggs. Talk to your doctor about how much protein is right for you. Avoid beer, wine, and mixed drinks (alcohol) and smoking. Drink 6 to 8 glasses of water each day. What problems could happen? Lifelong organ damage Increased chance of having heart, kidney, lung, and blood problems Coma What can be done to prevent this health problem? Call your doctor if you have or think you have liver problems. Get early treatment right away. When do I need to call the doctor? If your condition gets worse or you feel worse, go to the ER right away Signs of liver problems. These include upset stomach or throwing up, belly pain, feeling tired, dark urine, yellow skin or eyes, not hungry. Signs of infection. These include a fever of 100.4 F (38 C) or higher, chills You throw up blood or see blood in your stool. Signs of any change in thinking, confusion, loss of memory Change in behavior Change in mood Feel very sleepy Signs of mental and emotional problems Shaky movements of arms or hands Teach Back: Helping You Understand The Teach Back Method helps you understand the information we are giving you. The idea is simple. After talking with the staff, tell them in your own words what you were just told. This helps to makesure the staff has covered each thing clearly. It also helps to explain things that may have been abit confusing. Before going home, make sure you are able to do these: I can tell you about my condition. I can tell you what changes I need to make with my diet. I can tell you what I will do if I have dark urine or yellow skin or eyes. Last Reviewed Date 2018-06-28 Consumer Information Use and Disclaimer This information is not specific medical advice and does not replace information you receive from your health care provider. This is only a brief summary of general information. It does NOT include all information about conditions, illnesses, injuries, tests, procedures, treatments, therapies, discharge instructions or life-style choices that may apply to you. You must talk with your health care provider for complete information about your health and treatment options. This information should not be used to decide whether or not to accept your health care provider s advice, instructions or recommendations. Only your health care provider has the knowledge and training to provide advice that is right for you. Copyright Copyright 2020 [employer]. and its affiliates and/or licensors. All rights reserved. Patient Education Cirrhosis Discharge Instructions About this topic Cirrhosis results from long-term liver damage. The liver gets firm, scarred, wrinkled, and doesn't work like it should. Common causes are viral hepatitis infections, long-term alcohol use, and nonalcoholic fatty liver disease. What care is needed at home? Ask your doctor what you need to do when you go home. Make sure you ask questions if you do not understand what the doctor says. This way you will know what you need to do. Take your drugs as ordered by your doctor. Ask your doctor first before taking any drugs other than the ones you were given. Work out often. Rest when you are tired. Manage stress by using guided imagery, yoga, kathie chi, etc. What follow-up care is needed? Your doctor may ask you to make visits to the office to check on your progress. Be sure to keep these visits. What drugs may be needed? The doctor may order drugs to: Prevent bleeding from your esophagus Decrease blood pressure in the liver Get rid of the extra fluid in your body Prevent infection Relieve confusion caused by liver problems Lower pain, itch, and tiredness Help with nausea Will physical activity be limited? Talk to your doctor about the right amount of activity for you. Some activity may be limited. What changes to diet are needed? Eat foods like fresh fruits, vegetables, whole grains, and a small amount of protein. Follow a low-salt diet. Limit the liquids you take each day. Try to drink the same amount of fluid each day. Do not drink beer, wine, and mixed drinks (alcohol). What problems could happen? Bleeding from your esophagus or stomach Kidney failure Liver cancer Confusion, mental problems, or coma What can be done to prevent this health problem? Avoid alcohol use. Decrease your risk for having nonalcoholic fatty liver disease: ? Stay at a healthy weight or lose weight, if needed. ? If you have diabetes or high cholesterol, talk with your doctor about how to treat these conditions. Decrease your risk of hong hepatitis B and C. ? Get vaccinated for hepatitis A and B. ? Do not have unprotected sex. ? Practice safe sex by using condoms. ? Do not share needles with other people. ? Use household bleach to clean up any blood. Wear gloves if you come into contact with blood. When do I need to call the doctor? Problems with bleeding like: ? Blood in your stool ? Throwing up blood ? Bleeding or bruising Signs of infection. These include fever over 100.4 F (38 C), chills. Belly pain Legs or ankles are swollen Problems breathing Very sleepy (more than expected) Confusion Skin and the whites of your eyes are yellow in color Teach Back: Helping You Understand The Teach Back Method helps you understand the information we are giving you. After you talk with the staff, tell them in your own words what you learned. This helps to make sure the staff has described each thing clearly. It also helps to explain things that may have been confusing. Before going home, make sure you can do these: I can tell you about my condition. I can tell you what changes I need to make with my diet or drugs. I can tell you what I will do if I have problems with bleeding or my skin or eyes are yellow. Where can I learn more? National [employer] Information Clearinghouse https://www.niddk.nih.gov/health-information/liver-disease/cirrhosis National Health Service https://www.nhs.uk/conditions/cirrhosis/ Last Reviewed Date 2019-08-02 Consumer Information Use and Disclaimer This information is not specific medical advice and does not replace information you receive from your health care provider. This is only a brief summary of general information. It does NOT include all information about conditions, illnesses, injuries, tests, procedures, treatments, therapies, discharge instructions or life-style choices that may apply to you. You must talk with your health care provider for complete information about your health and treatment options. This information should not be used to decide whether or not to accept your health care provider s advice, instructions or recommendations. Only your health care provider has the knowledge and training to provide advice that is right for you. Copyright Copyright 2020 [employer]. and its affiliates and/or licensors. All rights reserved. Patient Education Autoimmune Hemolytic Anemia The Basics Written by the doctors and editors at [employer] What is autoimmune hemolytic anemia? -- Autoimmune hemolytic anemia is a type of anemia. Anemia is the medical term for when a person has too few red blood cells. Red blood cells are the cells in your blood that carry oxygen. If you have too few red blood cells, your body does not get all the oxygen it needs. Autoimmune hemolytic anemia happens due to problems with the body's infection- fighting system, called the immune system. Normally, the immune system kills germs. If something goes wrong and the immune system starts to attack healthy cells, this is called an autoimmune response. If your immune system attacks and destroys your red blood cells, you get autoimmune hemolytic anemia. What causes autoimmune hemolytic anemia? -- In many cases, doctors don't know what causes the condition. But sometimes it is related to: Infections such as pneumonia and mononucleosis (also called mono ). Certain types of cancer, including chronic lymphocytic leukemia (CLL), multiple myeloma, and lymphoma. Lymphomas are cancers that affect cells of the immune system. Autoimmune diseases such as lupus - In people with lupus, the immune system can attack cells and organs all over the body. Certain medicines, including some antibiotics Most of these things do not lead to autoimmune hemolytic anemia. What are the symptoms of autoimmune hemolytic anemia? -- Symptoms are the same as in other types ofanemia. They might include: Pale skin or a pale color in the tissue that lines the inside of the eyelids - You can see this tissue (called conjunctiva ) by gently pulling down your lower eyelid. The tissue will appear pale instead of its normal, pinkish-red color. Feeling very tired A fast heartbeat Trouble breathing Headache and muscle pains Is there a test for autoimmune hemolytic anemia? -- Yes. Doctors use blood tests to check for autoimmune hemolytic anemia. The most important one is called the direct antiglobulin test (also called the Basil test ). This test checks for signs of an immune attack on your red blood cells. How is autoimmune hemolytic anemia treated? -- Treatments can include: Medicines that make your body's immune system less active, such as prednisone - This is usually thefirst thing doctors try. Surgery to remove an organ called the spleen (called a splenectomy ) Blood transfusion (if the anemia is very severe) Other medicines, such as cyclophosphamide (brand name: Cytoxan) or rituximab (brand name: Rituxan),if the treatments listed above are not working well If the autoimmune hemolytic anemia is due to a condition like CLL or lupus, treatment of that condition might also treat the anemia. All topics are updated as new evidence becomes available and our peer review process is complete. This topic retrieved from [employer] on: Apr 04, 2020. Topic 86777 Version 9.0 Release: 28.4.6 - C28.294 2019 [employer] and/or its affiliates. All rights reserved. Consumer Information Use and Disclaimer This information is not specific medical advice and does not replace information you receive from your health care provider. This is only a brief summary of general information. It does NOT include all information about conditions, illnesses, injuries, tests, procedures, treatments, therapies, discharge instructions or life-style choices that may apply to you. You must talk with your health care provider for complete information about your health and treatment options. This information should not be used to decide whether or not to accept your health care provider's advice, instructions or recommendations. Only your health care provider has the knowledge and training to provide advice that is right for you.The use of [employer] content is governed by the [employer] Terms of Use. 2019 [employer]. All rights reserved. Copyright 2020 [employer] and/or its affiliates. All rights reserved. documented in this [id number] History and physical note* Francisco Marino MD - 01/08/2022 2:02 PM EDT MICU ATTENDING NOTE FRANCISCO MARINO MD - PIN [id number] I saw and evaluated the patient. I personally obtained the ferraro and critical portions of the historyand physical examination. I reviewed the resident's documentation and discussed the patient with the resident. I agree with the resident's medical decision making as documented in the resident's note. This patient has a high probability of sudden, clinically significant deterioration, which requiresthe highest level of physician preparedness to intervene urgently. I managed/supervised life or organ supporting interventions that required frequent physician assessment. Time I spent with family or surrogate(s) is included only if the patient was incapable of providing the necessary information or participating in medical decision making. Time devoted to teaching and to any procedures I billed separately is not included. I spent 45 critical care minutes of my full attention on this patient's management and direct patient care. Of note, medical issues requiring critical care management include: ACUTE BLOOD LOSS ANEMIA and HEPATIC FAILURE. Additional findings and notation: Will Anderson is a 36 year old male with PMH of EtOH dependence who presented with 2 days of L arm pain to [facility] ED. 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 Later the also had accidental chest wall trauma after he was working with awrench and hit himself in the chest. Patient drinks 4-10 twelve oz beers / day, last drink Thursday PM. At the OSH ED, he was found to have acute anemia to 6.9, jaundice with hyperbilirubinemia, and elevated transaminases. Transfused 1 U pRBC in the ED. Data: - CT abd/pelvis: mild to moderate body wall edema, +/- cellulitis of anterior chest. Moderate hepatic steatosis and cirrhosis, trace ascites, biliary sludge with probable small stones, mild to moderately dilated gallbladder. No cholecystitis. No biliary dilatation. Mild inflammation superior to pancreas. Moderate non-specific wall thickening of bladder. - RUQ US: Cirrhosis with severe hepatic steatosis. Focal asymmetric gallbladder wall thickening most suggestive of adenomyosis. Gallbladder sludge is present. No pericholecystic fluid or sonographic Galeano's sign to suggest acute cholecystitis. Normal size of CBD, mild intrahepatic dilation is noted. - Acetaminophen level neg ASSESSMENT/PLAN FEN/GI: 1) Jaundice 2) Indirect hyperbilirubinemia - Check AYLIN, retic, haptoglobin, LDH - May have hemolysis of hematoma of LUE 3) Hepatic steatosis 4) Cirrhosis 5) Acute alcoholic hepatitis - Maddrey's DF = 43 - GI consult - Soft tissue infection is possible so we will hold off on steroids for alcoholic hepatitis today - Hepatitis viral serologies are negative - Ascites survey - Liver US with dopplers - Ceftriaxone for SBP prophylaxis - Counseled patient on the importance of EtOH cessation HEME: 1) Macrocytic anemia - no gross evidence of GI bleeding - Check hemolysis labs as above - Check Vitamin B12, folate, TSH - Monitor for bleeding, on nexium 40 mg IV BID per GI recs 2) Thrombocytopenia - likely from EtOH use 3) Coagulopathy - due to cirrhosis NEURO: EtOH dependence - CIWA - Thiamine, folate CARDIAC: heart murmur heard at LUSB MSK: L upper extremity injury - concern for biceps rupture, possible underlying hematoma - Ortho consult - MRI L elbow PULM: no issues RENAL/: no acute issues +) Nutrition -- NPO +) Sedation/Analgesia -- tylenol +) DVT/GI prophylaxis -- SCDs / nexium +) Lines/Catheters -- PIVs +) Social/Goals of Care -- Parents Code Status: Full Code Francisco Marino M.D. Pulmonary, Critical Care and Sleep Medicine [facility] * Ivy Chua MD - 01/08/2022 8:50 AM EDT [facility] Medical Intensive Care Unit History and Physical Examination Will Anderson 36 year old 0 lbs MRN/Room: [id number] Admit Date: 01/08/2022 : 1985 PCP Contact: No primary care provider on file. Code Status: Full Code Source of Information: patient, patient chart Reason for presentation: L arm pain and bruising Reason for admission: decompensated cirrhosis, close monitoring of suspected L biceps muscle rupture Reason for intensive care needs: no beds on stepdown History of Present Illness: Will Anderson is a 36 year old male with a PMH of EtOH use d/o who presents to the hospital with L arm pain, bruising, swelling. Pt seen and examined upon arrival to MICU at [facility]. 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 Later on Thursday, he was pulling a wrench and states it hit him in the chest. Has noticed bruising of chest since this time aswell as associated pain. States lives at home alone. Pt states he noticed his skin was yellow for the past day. He denies tylenol. He takes 1 tablet of aleve every morning for pain. At [facility], presenting VS were 36.3C/HR 105/RR18/BP 145/68/ SpO2 98% on room air. Ht 170.18cm,wt 75kg. received morphine, ceftriaxone, protonix, thiamine. Received 1u pRBC and 1u FFP at [place]. Started on NS @ 150cc/h. Reportedly, trauma surgery was consulted at [place] and there was initially concern for compartment syndrome and fasciotomy was considered, but ultimately did not occur at the time. The trauma attending Dr. Du recommended orthopedic consultation upon arrival to the [facility]. Labs at OSH Alk phos 167 TBili 7.5 DBili 2.0 ALT 54 AST 160 Albumin 3.2 BMP Na 132 K 3.8 Cl 97 CO2 23 BUN 7 Cr < 0.3 Ca 8.3. AG = 12 Lipase 59 Lactate 3.3 --> 3.1 --> 2.4 --> 1.7 CBC WBC 7.4 / Hb 6.9 / Hct 19.3 / Plt 63 MCV 108 Neutrophils 44.8% Per [facility] note, 08/2020 Hb was 16.3 CK 782 U/A Spec grav 1.010, neg protein/glc/bili/blood, neg nitrite, positive for ketones 2+, noninfectious. Urobili 4.0. CT abd/pel with con Impression: -mild to mod nonspec body wall edema and/or cellulitis of the anterior chest and incompletely visualized L upper extremity -mod hepatic cirrhosis and steatosis with trace ascites in the pelvis -sludge and probably small stones within a mild to mod dilated GB, w/o other CT findings to suggestacute cholecystitis -mild inflammation superior to the pancreas, which may be pancreatitis or reactive. -moderate nonspecific wall thickening of the urinary bladder, which may be chronic or cystitis Past Medical History: Past Medical History: Diagnosis Date CLOSED FRACTURE MANDIBLE ANGLE OF JAW (HCC) OPEN FRACTURE OF MANDIBLE BODY NEC (HCC) Social History: Lives at home Drinks etoh 3 beers daily Quit smoking 6 years ago Denies other drug use Surgical history: There is no previous surgical history on file. Family History: No family history on file. Allergies: Allergies Allergen Reactions Amoxacillin [Amoxicillin] Home Meds: No current facility-administered medications on file prior to encounter. Current Outpatient Medications on File Prior to Encounter Medication Sig Dispense Refill ibuprofen (MOTRIN) 800 MG tablet Take 1 Tab by mouth every 6 hours as needed for Pain. 90 3 chlorhexidine (PERIDEX) 0.12 % solution Take by mouth. Take one capful of solution and place on provided syringe and rinse open area inside of mouth twice a day. 1 bottle 3 metoclopramide (REGLAN) 5 MG/5ML solution Take 5 mL by mouth 4 times daily (before meals and nightly). 120 mL 3 metoclopramide (REGLAN) 10 MG tablet Take 1 Tab by mouth 4 times daily (before meals and nightly). 120 3 Review of Systems: Review of Systems Constitutional: Negative for fever. Respiratory: Negative for cough and shortness of breath. Cardiovascular: Positive for chest pain (in area of injury/hematoma). Gastrointestinal: Positive for vomiting (emesis at OSH, nonbloody, nonbilious). Negative for blood in stool, melena and nausea. Genitourinary: Negative for dysuria. Musculoskeletal: Positive for falls. Neurological: Positive for dizziness. Psychiatric/Behavioral: Positive for substance abuse. Objective: Vital sign ranges over the past 24 hours (retrieved 01/08/2022 at 8:50 AM): Tmax (24 hours): 98.7 F (37.1 C) Pulse Av.6 Min: 89 Max: 116 Systolic (24hrs), Av , Min:109 , Max:137 Diastolic (24hrs), Av, Min:64, Max:82 MAP (mmHg) Av mmHg Min: 82 mmHg Max: 87 mmHg Resp Av.8 Min: 13 Max: 24 SpO2 Av.6 % Min: 93 % Max: 98 % Patient Vitals for the past 24 hrs: BP Temp Temp src Pulse Resp SpO2 O2 Device 01/08/22 0830 109/76 98.7 F (37.1 C) Oral 99 15 96 % -- 01/08/22 0815 126/73 -- -- 89 13 93 % -- 01/08/22 0800 126/64 -- -- 89 15 94 % -- 01/08/22 0706 -- -- -- 116 24 97 % -- 01/08/22 0705 -- -- -- -- -- -- Room air Ins & Outs: Admission Weight Today's Weight BMI Data Unavailable no prior weight on file No data found Intake/Output Summary (Last 24 hours) at 01/08/2022 0850 Last data filed at 01/08/2022 0700 Gross per 24 hour Intake -- Output 50 ml Net -50 ml In: - Out: 50 [Urine:50] Net: -50 Lines (including peripheral venous, central venous, arterial): Peripheral IV Access: 01/07/22 Right Forearm Present on Arrival to Hospital (Active) Site Assessment WNL;Dressing intact 01/08/22 0706 Infusion Status Port #1 Capped;Positive blood return 01/08/22 0706 Number of days: 1 Peripheral IV Access: 01/08/22 Right Hand Present on Arrival to Hospital (Active) Site Assessment WNL;Dressing intact 01/08/22 0706 Infusion Status Port #1 Capped;Positive blood return 01/08/22 0706 Number of days: 0 Physical Exam: Physical Exam VS reviewed, nursing note reviewed. General: appears in no acute distress Eyes: no conjunctival injection, EOM intact, +scleral icterus ENMT: dry mucous membranes Respiratory: CTAB, respiratory effort wnl Cardiovascular: RRR, +grade 3/6 systolic ejection murmur that does NOT radiate to axilla, distal pulses intact b/l Abdomen: bowel sounds present x4, soft, nondistended, nontender MSK: LUE - diffuse bruising, somewhat mottled appearance of skin of LUE. Neurovascularly intact- has sensation intact throughout. ROM limited by pain, but is able to move elbow, shoulder against mildresistance Ext: no peripheral edema Skin: +jaundiced. Involving the R side of chest are diffuse ecchymoses. Involving the L flank are ecchymoses. Neuro: A&O x 3. No asterixis. Fine tremor present. Psych: cooperative Current Meds: docusate sodium 100 mg 2x Daily Labs: Arterial Blood Gases None WBC/Diff None Basic Metabolic Panel None Creatinine clearance from [facility]: 87 ml/min using actual weight 58.3 kg (IBW 66.1 kg ignored) GFR from MDRD: greater than 60 age 36 yr, cr=0.96 on 03/13/2008, race White LFT's (last 3 years, up to 5 values) None Cardiac None Fingerstick Glucose Glucose 01/08/22 0833 94 No results found for: INR No results found for: TSH No results found for: HBA1C Lipids (last 3 years, up to 5 values) None Cultures: Blood Culture None Urine Culture None Respiratory Culture, Misc None Pyogen Culture None Fibrosis-4 Score:13.24 Imaging: Per Meet radiology read: CT abd/pel with con Impression: -mild to mod nonspec body wall edema and/or cellulitis of the anterior chest and incompletely visualized L upper extremity -mod hepatic cirrhosis and steatosis with trace ascites in the pelvis -sludge and probably small stones within a mild to mod dilated GB, w/o other CT findings to suggestacute cholecystitis -mild inflammation superior to the pancreas, which may be pancreatitis or reactive. -moderate nonspecific wall thickening of the urinary bladder, which may be chronic or cystitis ---> and please see images uploaded to [employer]. Resident's Assessment/Plan: Will Anderson is a 36 year old male with PMH of etoh use d/o presenting with LUE swelling and pain. Cardiovascular #Systolic murmur -likely flow murmur. Monitor for now. Neuro/Psych #EtOH use d/o -last drink Thursday evening -CIWAs -pt counseled re: abstinence from etoh recommendation Respiratory: No acute issues Gastrointestinal #Acute alcoholic hepatitis (MDF = 43) #Indirect hyperbilirubinemia #Jaundice #Elevated INR #Suspected EtOH cirrhosis -hyperbili worsening since . DDx favors hemolysis from hematoma formation from his injuries. DDx also includes viral hepatitis, less likely -check LDH, haptoglobin, AYLIN, retic count -daily PT/INR -GI consulted, appreciate recs -US ascites survey -RUQ US -iron studies -2 Large bore PIVs -transfuse Hb <7 -lactulose TID -folic acid and thiamine supplementation daily -vitamin K per GI Renal/ #Hyponatremia -likely hypovolemic given hx emesis -urine studies tomorrow if does not improve with IVF hydration Monitor UO closely Rosales: absent Infectious Diseases #Possible cellulitis of chest wall -less likely cellulitis given exam and CT findings, most suggestive of edema, however will empirically tx with ceftriaxone and monitor closely Endocrine Goal glc 140-180, check q6h while NPO Hematology/Oncology #Acute macrocytic anemia -with no overt GIB. -monitor for overt GIB -s/p 1u pRBC from , did not increment appropriately - only 6.9 --> 7.2 after the unit of blood. -check cbc q12h -vitamin b12, folate -iron studies -2 Large bore PIVs -transfuse Hb <7 -TSH #Thrombocytopenia -as sequelae of cirrhosis Musculoskeletal #LUE swelling 2/2 trauma -ortho consulted, appreciate recs: no fx on plain films. Ortho has ordered MR L elbow -will f/u ortho recs -NPO for now pending data from MRI and ortho's operative plan #Rhabdomyolysis - mild -CK 700s -hydrate with LR @ 100cc/h -daily CK F (feeding/fluids): NPO pending OR plan from ortho. A (analgesia): tylenol with 2g daily limit. S (sedation): n/a T (thromoboprophylaxis): SCDs H (head up position): 30 U -(ulcer prophylaxis): nexium BID G (glycemic control): as above S (spontaneous breathing trial): n/a B (bowel care): prn I (indewelling catheter removal): none D (deescalation of antibiotics): ctx Social- dad Rich and mom Code Status: Full Code Staffed with attending shoe cobbler Dr. Marino. Ivy Chua MD Internal Medicine PGY-3 documented in this [id number] Evaluation + Plan note Extracted from: Title:Admission H & P Author:Ila MULTANI, Aldair S Date:01/07/22 36-year-old male with past medical history of alcohol abuse presented with left arm/hand swelling. Left upper extremity swelling and hematoma Acute anemia in setting of thrombocytopenia and cirrhosis Hemoglobin 6.9. Hemoglobin 16.3 in 08/2020 INR 1.6. Platelets 63 Trauma surgery evaluated the patient. No need for immediate surgery. Patient waiting for bed at [facility] Patient received vitamin K, 1 unit FFP's. Order 1 unit PRBCs Check CK, myoglobin. Repeat hemoglobin Vancomycin and Zosyn Every hour neurochecks. [facility] trauma team following. If swelling gets worse then patient will need to go to the OR Jaundice Cirrhosis Acute liver failure CT abdomen/pelvis with contrast showed mild to moderate body wall edema/cellulitis of anterior chest, moderate hepatic cirrhosis, trace ascites, sludge and probably stones within mild to moderate dilated gallbladder without findings to suggest acute cholecystitis Meld score 22 GI consulted in ED, recommended transferring to tertiary center. Patient waiting for bed at [facility] Acute pancreatitis CT abdomen showed mild inflammation superior to pancreas which may be pancreatitis. Lipase 59 NPO. Normal saline at 150 cc/h Lactic acidosis Lactic acid 3.3 -> 3.1 IVF's Alcohol abuse Ethanol level 107 Thiamine, folic acid Diet: NPO Code: Full code DVT prophylaxis: SCDs Dispo: inpatient, CIU; anticipated hosp stay >2 midnights This report was transcribed using voice recognition software. Every effort was made to ensure accuracy, however, inadvertently computerized railroad mechanic mistakes may be present. Dr. Aldair Galiciaer Hospitalist Orders: folic acid, 1 mg = 0.2 mL, Injection, IV Push, Daily, Routine, Start date 01/07/22 17:53:00 EDT, 01/07/22 17:53:00 EDT morphine, 2 mg = 1 mL, Injection, IV Push, q3hr PRN Pain for 5 day(s), Stop date 01/12/22 17:50:00 EDT, Routine, Start date 01/07/22 17:51:00 EDT, 01/07/22 17:51:00 EDT ondansetron, 4 mg = 2 mL, Injection, IV Push, q6hr PRN Nausea, Routine, Start date 01/07/22 17:52:00 EDT, 01/07/22 17:52:00 EDT Sodium Chloride 0.9% intravenous solution 1,000 mL, 1,000 mL, IV, 150 mL/hr, Routine, Start date 01/07/22 17:49:00 EDT, 6.7 hour(s), Total volume (mL): 1,000, 75 kg, 1.88, m2 Sodium Chloride 0.9% intravenous solution 250 mL, 250 mL, IV, 20 mL/hr, PRN Other (see comment), Routine, Start date 01/07/22 17:47:00 EDT, 12.5 hour(s), Total volume (mL): 250, 75 kg, 1.88, m2 Sodium Chloride 0.9% intravenous solution 500 mL, 500 mL, IV, 20 mL/hr, PRN Other (see comment), Routine, Start date 01/07/22 17:47:00 EDT, 25 hour(s), Total volume (mL): 500, 75 kg, 1.88, m2 thiamine, 250 mg = 2.5 mL, Injection, IV Push, Daily, Routine, Start date 01/07/22 17:53:00 EDT, 01/07/22 17:53:00 EDT Basic Metabolic Panel Below the Knee Intermittent Pneumatic Compression Device Cardiac Monitoring CBC w/ Auto Diff Hepatic Function Panel Magnesium Level Notify Provider Vital Signs Notify Provider Vital Signs NPO Diet Phosphorus Level Place in Status PT & PTT Pulse Oximetry Resuscitation Status - Full Vital Signs Weight Addendum by Ila MULTANI, Aldair Gentry on January 07, 2022 18:44:52 EDT . [facility] Future App[facility]ments Appointment Date:03/16/2023 11:00:00 AM Scheduled Provider:Teddy Hitchcock MD [facility] Appointment Type:[facility] Future Appointments Appointment Date:03/30/2023 11:00:00 AM Scheduled Provider:Teddy Hitchcock MD [facility] Appointment Type:WC Follow Up Visit (FT) [facility] + Plan note Future Appointments Appointment Date:04/16/2023 12:00:00 PM Scheduled Provider: [facility] App[facility] Type:US Duplex Procedures (FT) Appointment Date:04/23/2023 10:15:00 AM Scheduled Provider:Teddy Hitchcock MD [facility] Appointment Type:WC Follow Up Visit (FT) Future Scheduled Tests Radiology* US PVR Lower EXT Complete Bilat 04/16/23 [facility] + Plan note Future Appointments Appointment Date:04/23/2023 10:15:00 AM Scheduled Provider:Teddy Hitchcock MD [facility] Appointment Type:WC [facility] Future App[facility]ments Appointment Date:04/30/2023 08:30:00 AM Scheduled Provider: [facility] App[facility] Type:WC Assessment (FT) Appointment Date:05/07/2023 11:30:00 AM Scheduled Provider:Teddy Hitchcock MD [facility] Appointment Type:WC [facility] Future Appointments Appointment Date:05/07/2023 11:30:00 AM Scheduled Provider:Teddy Hitchcock MD [facility] Type[facility]WC [facility] Appointment Date:05/14/2023 07:00:00 AM Scheduled Provider:Teddy Hitchcock MD [facility] Appointment Type:WC Follow Up Visit (FT) [facility] + Plan note Future Appointments Appointment Date:05/21/2023 11:15:00 AM Scheduled Provider:Teddy Hitchcock MD [facility] Appointment Type:WC Follow Up Visit (FT) [facility] + Plan note Future Appointments Appointment Date:06/04/2023 10:45:00 AM Scheduled Provider:Teddy Hitchcock MD [facility] Appointment Type:WC Follow Up Visit (FT) [facility] + Plan note Future Appointments Appointment Date:06/11/2023 01:00:00 PM Scheduled Provider: [facility] Appointment Type:WC Assessment (FT) Appointment Date:06/18/2023 10:00:00 AM Scheduled Provider:Teddy Hitchcock MD [facility] Appointment Type:WC Follow Up Visit (FT) [facility] + Plan note Future Appointments Appointment Date:06/25/2023 11:00:00 AM Scheduled Provider:Teddy Hitchcock MD [facility] Appointment Type:WC Follow Up Visit (FT) [facility] + Plan note Future Appointments Appointment Date:07/06/2023 10:30:00 AM Scheduled Provider:Teddy Hitchcock MD [facility] Appointment Type:WC Follow Up Visit (FT) [facility] + Plan note Future Appointments Appointment Date:07/16/2023 09:30:00 AM Scheduled Provider:Teddy Hitchcock MD [facility] Appointment Type:WC [facility]FT[facility] Future Appointments Appointment Date:07/23/2023 09:00:00 AM Scheduled Provider:Teddy Hitchcock MD [facility] Appointment Type:WC Follow Up Visit (FT) Appointment Date:07/24/2023 07:40:00 AM Scheduled Provider:Lisa Padilla Location:[facility] Appointment Type:FM [facility] Future Appointments Appointment Date:07/24/2023 07:40:00 AM Scheduled Provider:Lisa Padilla Location:[facility] Appointment Type: New Patient - Adult Appointment Date:08/06/2023 09:30:00 AM Scheduled Provider:Teddy Hitchcock MD [facility] Appointment Type:WC [facility] (FT) [facility] Future Appointments Appointment Date:08/06/2023 09:30:00 AM Scheduled Provider:Teddy Hitchcock MD [facility] Appointment Type:WC Follow Up Visit (FT) Appointment Date:08/21/2023 07:20:00 AM Scheduled Provider:Lisa Padilla Location:[facility] Appointment Type: Open Future Scheduled Tests Laboratory* HgbA1c 07/24/23 * TIBC Calculated 07/24/23 * TSH With T4fr Reflex 07/24/23 * Acute Hepatitis A B C Panel 07/24/23 * HCV Antibody RFX to Quant PCR 07/24/23 * HIV Screen 4th Generation wRfx 07/24/23 * Vitamin D 25 Hydroxy 07/24/23 * Ammonia Level 07/24/23 * CBC w/ Auto Diff 07/24/23 * Comprehensive Metabolic Panel 07/24/23 * Ferritin 07/24/23 * Folate Level 07/24/23 * GGT 07/24/23 * Iron Level 07/24/23 * Lipase Level 07/24/23 * Lipid Panel 07/24/23 * Magnesium Level 07/24/23 * PT 07/24/23 * Phosphorus Level 07/24/23 * Reticulocyte Count 07/24/23 * Uric Acid 07/24/23 * Vitamin B12 Level 07/24/23 [facility] + Plan note Future Appointments Appointment Date:08/21/2023 07:20:00 AM Scheduled Provider:Lisa Padilla Location:[facility] Appointment Type: Open Appointment Date:09/01/2023 12:00:00 PM Scheduled Provider:Mario Evans MD Location:[facility] Appointment Type:[facility] New Patient Future Scheduled Tests Laboratory* HgbA1c 07/24/23 * TIBC Calculated 07/24/23 * TSH With T4fr Reflex 07/24/23 * Acute Hepatitis A B C Panel 07/24/23 * HCV Antibody RFX to Quant PCR 07/24/23 * HIV Screen 4th Generation wRfx 07/24/23 * Vitamin D 25 Hydroxy 07/24/23 * Ammonia Level 07/24/23 * CBC w/ Auto Diff 07/24/23 * Comprehensive Metabolic Panel 07/24/23 * Ferritin 07/24/23 * Folate Level 07/24/23 * GGT 07/24/23 * Iron Level 07/24/23 * Lipase Level 07/24/23 * Lipid Panel 07/24/23 * Magnesium Level 07/24/23 * PT 07/24/23 * Phosphorus Level 07/24/23 * Reticulocyte Count 07/24/23 * Uric Acid 07/24/23 * Vitamin B12 Level 07/24/23 [facility] Diagnosis Hemolytic anemia (HCC)- Primary Acquired hemolytic anemia, unspecified Hematoma Contusion of unspecified site Alcoholic hepatitis without ascites Acute alcoholic hepatitis Alcoholic cirrhosis of liver without ascites (HCC) Alcoholic cirrhosis of liver 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 Alcohol abuse Alcohol abuse, unspecified Coagulation defect (HCC) Other and unspecified coagulation defects Jaundice Jaundice, unspecified, not of Thrombocytopenia (HCC) Thrombocytopenia, unspecified Tear of left biceps muscle, [facility] Diagnosis 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 [facility]* Diagnosis 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 [facility]* Diagnosis 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 Bilateral swelling of feet and ankles Nausea and vomiting, intractability of vomiting not specified, unspecified vomiting type [facility]* Diagnosis 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 [facility]* Diagnosis 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 Nausea and vomiting, intractability of vomiting not specified, unspecified vomiting type Alcoholic cirrhosis of liver without ascites (HCC) Alcoholic cirrhosis of liver [facility]* Diagnosis 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 [facility]* Diagnosis Alcoholic cirrhosis of liver without ascites (HCC)- Primary Alcoholic cirrhosis of liver [facility]* Diagnosis Alcoholic cirrhosis, unspecified whether ascites present (HCC)- Primary Iron deficiency anemia, unspecified iron deficiency anemia type Body mass index (BMI) 27.0-27.9, adult Iron deficiency anemia, unspecified iron deficiency anemia type Alcoholic cirrhosis, unspecified whether ascites present (HCC) [facility]* Diagnosis 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 Alcoholic cirrhosis of liver without ascites (HCC) Alcoholic cirrhosis of liver Lower extremity edema Edema Dysuria Lower extremity edema Edema Iron deficiency anemia, unspecified iron deficiency anemia type Alcoholic cirrhosis, unspecified whether ascites present (HCC) [facility]* Diagnosis Thrombocytopenia (HCC)- Primary Thrombocytopenia, unspecified Iron deficiency anemia, unspecified iron deficiency anemia type Alcoholic cirrhosis, unspecified whether ascites present (HCC) [facility]* Diagnosis Alcoholic cirrhosis, unspecified whether ascites present (HCC)- Primary Iron deficiency anemia, unspecified iron deficiency anemia type Body mass index (BMI) 27.0-27.9, adult Iron deficiency anemia, unspecified iron deficiency anemia type Alcoholic cirrhosis, unspecified whether ascites present (HCC) [facility]* Diagnosis Urinary tract infection without hematuria, site unspecified- Primary Iron deficiency anemia, unspecified iron deficiency anemia type Alcoholic cirrhosis, unspecified whether ascites present (HCC) [facility]* Diagnosis Cellulitis of right lower extremity- Primary Cellulitis and abscess of leg, except foot Acute cystitis without hematuria Acute cystitis Prepatellar bursitis of right knee Prepatellar bursitis Iron deficiency anemia, unspecified iron deficiency anemia type Alcoholic cirrhosis, unspecified whether ascites present (HCC) [facility]* Diagnosis Cellulitis, unspecified cellulitis site- Primary Body mass index (BMI) 26.0-26.9, adult Iron deficiency anemia, unspecified iron deficiency anemia type Alcoholic cirrhosis, unspecified whether ascites present (HCC) [facility]* Diagnosis Klebsiella pneumoniae infection- Primary Klebsiella pneumoniae Iron deficiency anemia, unspecified iron deficiency anemia type Alcoholic cirrhosis, unspecified whether ascites present (HCC) [facility]* Diagnosis Urinary tract infection without hematuria, site unspecified- Primary Leg swelling Swelling of limb Iron deficiency anemia, unspecified iron deficiency anemia type Alcoholic cirrhosis, unspecified whether ascites present (HCC) [facility]* Diagnosis Alcoholic hepatitis without ascites- Primary Acute alcoholic hepatitis Alcoholic cirrhosis of liver without ascites (HCC) Alcoholic cirrhosis of liver 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 Iron deficiency anemia, unspecified iron deficiency anemia type Alcoholic cirrhosis, unspecified whether ascites present (HCC) [facility]* Diagnosis Alcoholic hepatitis without ascites- Primary Acute alcoholic hepatitis Alcoholic cirrhosis of liver without ascites (HCC) Alcoholic cirrhosis of liver 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 Iron deficiency anemia, unspecified iron deficiency anemia type Alcoholic cirrhosis, unspecified whether ascites present (HCC) [facility]* Diagnosis Alcoholic cirrhosis of liver without ascites (HCC)- Primary Alcoholic cirrhosis of liver Iron deficiency anemia, unspecified iron deficiency anemia type Alcoholic cirrhosis, unspecified whether ascites present (HCC) [facility]* Diagnosis Right leg swelling- Primary Cellulitis, unspecified cellulitis site Nausea Nausea alone Body mass index (BMI) 26.0-26.9, adult Iron deficiency anemia, unspecified iron deficiency anemia type Alcoholic cirrhosis, unspecified whether ascites present (HCC) [facility] Diagnosis Alcoholic hepatitis without ascites- Primary Acute alcoholic hepatitis Alcoholic cirrhosis of liver without ascites (HCC) Alcoholic cirrhosis of liver 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 Body mass index (BMI) 26.0-26.9, adult Iron deficiency anemia, unspecified iron deficiency anemia type Alcoholic cirrhosis, unspecified whether ascites present (HCC) [facility] Diagnosis Alcoholic hepatitis without ascites Acute alcoholic hepatitis Alcoholic cirrhosis of liver without ascites (HCC) Alcoholic cirrhosis of liver 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 Iron deficiency anemia, unspecified iron deficiency anemia type Alcoholic cirrhosis, unspecified whether ascites present (HCC) [facility]* Diagnosis Cellulitis, unspecified cellulitis site- Primary Muscle soreness Mylagia and myositis, unspecified Iron deficiency anemia, unspecified iron deficiency anemia type Alcoholic cirrhosis, unspecified whether ascites present (HCC) [facility]* Diagnosis Encounter for laboratory testing for severe acute respiratory syndrome coronavirus 2 (SARS-CoV-2)- Primary Iron deficiency anemia, unspecified iron deficiency anemia type Alcoholic cirrhosis, unspecified whether ascites present (HCC) [facility]* Diagnosis Cellulitis, unspecified cellulitis site- Primary [facility]* Diagnosis Alcoholic cirrhosis of liver without ascites (HCC)- Primary Alcoholic cirrhosis of liver Nausea Nausea alone [facility]* Diagnosis Alcoholic fatty liver- Primary Nausea Nausea alone Hyperbilirubinemia Disorders of bilirubin excretion Alcoholic hepatitis, unspecified whether ascites present [facility]* Diagnosis Alcoholic fatty liver- Primary Nausea Nausea alone Hyperbilirubinemia Disorders of bilirubin excretion Alcoholic hepatitis, unspecified whether ascites present Body mass index (BMI) 26.0-26.9, adult [facility]* Diagnosis 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 Iron deficiency anemia, unspecified iron deficiency anemia type Alcoholic cirrhosis, unspecified whether ascites present (HCC) Prophylactic antibiotic Encounter for long-term (current) use of antibiotics On Cellcept therapy Increased storage iron Other disorders of iron metabolism [facility]* Diagnosis Rib pain- Primary Chest pain, unspecified [facility]* Diagnosis Rib pain- Primary Chest pain, unspecified Alcoholic cirrhosis of liver without ascites (HCC) Alcoholic cirrhosis of liver Body mass index (BMI) 28.0-28.9, adult [facility]* Diagnosis Liver fibrosis- Primary Cirrhosis of liver without mention of alcohol Alcohol use disorder in remission Elevated liver enzymes Nonspecific elevation of levels of transaminase or lactic acid dehydrogenase (LDH) Jaundice Jaundice, unspecified, not of Body mass index (BMI) 27.0-27.9, adult [facility]* Diagnosis 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 [facility]* Diagnosis 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 Alcoholic hepatitis, unspecified whether ascites present Alcoholic cirrhosis of liver without ascites (HCC) Alcoholic cirrhosis of liver Hypoglycemia Hypoglycemia, unspecified [facility]* Diagnosis Alcoholic cirrhosis of liver without ascites (HCC)- Primary Alcoholic cirrhosis of liver [facility]* Diagnosis Iron deficiency anemia, unspecified iron deficiency anemia type Alcoholic cirrhosis, unspecified whether ascites present (HCC) [facility]* Diagnosis Rib pain- Primary Chest pain, unspecified [facility]* Diagnosis 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 Prophylactic antibiotic Encounter for long-term (current) use of antibiotics On Cellcept therapy [facility]* Diagnosis Multiple myeloma, remission status unspecified (HCC)- Primary [facility]* Diagnosis 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 On Cellcept therapy Visit for blood test Laboratory examination, unspecified [facility]* Diagnosis Iron deficiency anemia, unspecified iron deficiency anemia type Alcoholic cirrhosis, unspecified whether ascites present (HCC) [facility]* Diagnosis 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 [facility]* Diagnosis Nausea- Primary Nausea alone [facility]* Diagnosis 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 On Cellcept therapy Prophylactic antibiotic Encounter for long-term (current) use of antibiotics [facility] - [facility]* Type Description Date Medical History anxiety Medical History LIVER ISSUES Surgical History fx jaw Hospitalization History LIVER ISSUES 2021 [employer] Other Hospital course Narrative No data available for this [facility] No data available for this [facility] No data available for this section [facility] Tests/Procedures (Routine) - Authorized Specialty Diagnoses / Procedures Referred By Contact Referred To Contact Cardiovascular Testing Diagnoses Bilateral swelling of feet and ankles Tanvir Black MD [address] [place], [place] [address] [id number] [facility] CARD NON INVASIVE [facility] [place] [address] Referral ID Status Reason Start Date Expiration Date V isits Requested Visits Authorized [id number] Authorized 03/13/2022 03/13/2023 1 1 Scheduling Instructions 1. Take your medicines as prescribed by your doctor. (If you take a water pill , do not take it the morning of the test. You may take it when you return home). 2. You may eat meals and drink fluids at your normal times. 3. This test takes approximately one hour. 4. Please call the [facility] at [phone] ([phone] if you are unable to keep your appointment. Question Answer Insert IV access & flush with 3mL of 0.9% sodium chloride PRN to keep patent IF IV placement is required for this exam? Yes Clinical condition needing evaluation bilateral swelling Is this being ordered for a patient starting, undergoing or evaluating chemotherapy? No Comments Insert IV access & flush with 3ml of 0.9% sodium chloride PRN to keep patent, if not already present for LV contrast with Definity and/or saline contrast. Please indicate height and weight if it does not appear below. Blood pressure 137/69, pulse 85, temperature 98.5 F (36.9 C), temperature source Oral, resp. rate 14, weight 165 lb (74.8 kg), SpO2 100 %. Room/bed info not found @[facility]@ Robin for visit Narrative* Auth/Cert Specialty Diagnoses / Procedures Referred By Taya hope Referred To Contact Case Management Diagnoses Acute Liver Failure Procedures [facility] [address] [place], [place] [address] [address] Phone: [phone] [facility] [address] [place], [place] [address] [address] Phone: [phone] Referral ID Status Reason Start Date Expiration Date Visits Re quested Visits Authorized [id number] 3 3 Robin for visit Narrative* Tests/Procedures (Routine) - Closed Specialty Diagnoses / Procedures Referred By Contact Referred To Contact Cardiovascular Testing Diagnoses Bilateral swelling of feet and ankles Tanvir Black MD [address] [place] [address] [place] [address] [facility] CARD NON INVASIVE [address] [place] [address] Referral ID Status Reason Start Date Expiration Date Visits Re quested Visits Authorized [id number] Closed 03/13/2022 03/13/2023 1 1 [facility] Reason for Referral Specialty Diagnoses / Procedures Referred By Contac t Referred To Contact Radiology Diagnoses Rib pain Procedures XR RIBS LT UNILAT W/PA CHEST Theo Burks MD [address] [place] [address] [place] [address] [facility] DIAGNOSTIC RADIOLOGY [address] [place] [address] [place] [address] Referral ID Status Reason Start Date Expiration Date V isits Requested Visits Authorized [id number] Authorized 12/15/2022 12/15/2023 1 1 Specialty Diagnoses / Procedures Referred By Contac t Referred To Contact Diagnoses Rib pain Theo Burks MD [address] [place] [address] [place] [address] Referral ID Status Reason Start Date Expiration Date V isits Requested Visits Authorized [id number] Pending Review 3 3 Specialty Diagnoses / Procedures Referred By Contac t Referred To Contact Diagnoses Iron deficiency anemia, unspecified iron deficiency anemia type Alcoholic cirrhosis, unspecified whether ascites present (HCC) Alcoholic cirrhosis of liver without ascites (HCC) Tanvir Black MD [address] [place] [address] [place] [address] Referral ID Status Reason Start Date Expiration Date Visits Re quested Visits Authorized [id number] Closed 3 3 Specialty Diagnoses / Procedures Referred By Contac t Referred To Contact Radiology Diagnoses Alcoholic cirrhosis of liver without ascites (HCC) Procedures XA TRANSJUGULAR LIVER BIOPSY (CHRISTIANO) XA INTERVENTIONAL RADIOLOGY PROCEDURE SERVICE Marcello Ibanez MD [address] [place] [address] [address] [facility] [address] [place] [address] Referral ID Status Reason Start Date Expiration Date V isits Requested Visits Authorized [id number] Authorized 10/27/2022 10/27/2023 1 1 Specialty Diagnoses / Procedures Referred By Contac t Referred To Contact Diagnoses Urinary tract infection without hematuria, site unspecified Leg swelling Tanvir Black MD [address] [place] [address] [place] [address] [facility] [address] [place] [address] Referral ID Status Reason Start Date Expiration Date V isits Requested Visits Authorized [id number] Authorized 08/21/2022 02/17/2023 3 3 Scheduling Instructions Please call Internal Medicine at to schedule an appointment. Specialty Diagnoses / Procedures Referred By Contac t Referred To Contact Radiology Diagnoses Lower extremity edema Procedures US LEG RIGHT VENOUS + DOPPLER Tanvir Black MD [address] [place] [address] [place] [address] [address] [facility] [address] [place] [address] Referral ID Status Reason Start Date Expiration Date Visits Re quested Visits Authorized [id number] Closed 08/14/2022 08/14/2023 1 1 Specialty Diagnoses / Procedures Referred By Contac t Referred To Contact Radiology Diagnoses Iron deficiency anemia, unspecified iron deficiency anemia type Alcoholic cirrhosis, unspecified whether ascites present (HCC) Procedures US HEP PORT SPLEN VEIN + DOPPLER Maria C Faustin, SUPERVISOR TITLE[employer] [address] [place] [address] [place] [address] [address] [facility] [address] [place] [address] Referral ID Status Reason Start Date Expiration Date V isits Requested Visits Authorized [id number] Authorized 08/14/2022 08/14/2023 1 1 Specialty Diagnoses / Procedures Referred By Contac t Referred To Contact Radiology Diagnoses Iron deficiency anemia, unspecified iron deficiency anemia type Alcoholic cirrhosis, unspecified whether ascites present (HCC) Procedures US LIVER/GALL BLADDER/PANCREAS Maria C Faustin, SUPERVISOR T[employer] [address] [place] [address] [facility] ULTRASOUND [address] [place] [address] Referral ID Status Reason Start Date Expiration Date V isits Requested Visits Authorized [id number] Authorized 08/14/2022 08/14/2023 1 1 Specialty Diagnoses / Procedures Referred By Contac t Referred To Contact Afua Umanzor MD [address] [place] [address] Referral ID Status Reason Start Date Expiration Date V isits Requested Visits Authorized [id number] Pending Review 3 3 Referral ID Status Reason Start Date Expiration Date V isits Requested Visits Authorized [id number] Pending Review 3 3 Specialty Diagnoses / Procedures Referred By Contac t Referred To Contact Gastroenterology Diagnoses Alcoholic cirrhosis of liver without ascites (HCC) Afua Umanzor MD [address] [place] [address] [facility] LIVER [address] [place] [address] Referral ID Status Reason Start Date Expiration Date V isits Requested Visits Authorized [id number] Authorized 01/17/2022 01/17/2023 3 3 Scheduling Instructions Please call the Liver Clinic at to schedule an appointment if one was not made for you today. Question Answer Reason for Referral: Cirrhosis [31] Which Liver clinic should the patient be scheduled in? 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 Specialty Diagnoses / Procedures Referred By Contac t Referred To Contact Diagnoses Tear of left biceps muscle, initial encounter Afua Umanzor MD [address] [place] [address] S ORTHO HAND [address] [place] [address] Referral ID Status Reason Start Date Expiration Date V isits Requested Visits Authorized [id number] Authorized 01/17/2022 01/17/2023 3 3 Scheduling Instructions Please call the [facility] at [phone] to schedule an appointment if one was not made for you today. Question Answer Adult patient to be evaluated for: Elbow - Bicep Tear - Left [5] Comments No prior visits in PM&R No prior visits in Orthopedics Specialty Diagnoses / Procedures Referred By Contac t Referred To Contact Radiology Procedures US HEP PORT SPLEN VEIN + DOPPLER Ccp [address] [place] [address] [facility] ULTRASOUND [address] [place] [address] Referral ID Status Reason Start Date Expiration Date Visits Re quested Visits Authorized [id number] Closed 01/10/2022 01/10/2023 1 1 Specialty Diagnoses / Procedures Referred By Contac t Referred To Contact Radiology Procedures US SPLEEN US SPLEEN Ccp [address] [place] [address] [facility] ULTRASOUND [address] [place] [address] Referral ID Status Reason Start Date Expiration Date Visits Re quested Visits Authorized [id number] Closed 01/09/2022 01/09/2023 1 1 Specialty Diagnoses / Procedures Referred By Contac t Referred To Contact Radiology Procedures XR ABDOMEN 1 VIEW AP Ccp [address] [place] [address] [facility] DIAGNOSTIC RADIOLOGY [address] [place] [address] Referral ID Status Reason Start Date Expiration Date Visits Re quested Visits Authorized [id number] Closed 01/09/2022 01/09/2023 1 1 Specialty Diagnoses / Procedures Referred By Contac t Referred To Contact Radiology Procedures XR ORBITS Ccp [address] [address] [facility] DIAGNOSTIC RADIOLOGY [address] [place] [address] [place] [address] Referral ID Status Reason Start Date Expiration Date Visits Re quested Visits Authorized [id number] Closed 01/08/2022 01/08/2023 1 1 Specialty Diagnoses / Procedures Referred By Contac t Referred To Contact Radiology Procedures US ASCITES SURVEY 4 QUADRANTS Ccp [address] [address] [facility] ULTRASOUND [address] [place] [address] Referral ID Status Reason Start Date Expiration Date Visits Re quested Visits Authorized [id number] Closed 01/08/2022 01/08/2023 1 1 Specialty Diagnoses / Procedures Referred By Contac t Referred To Contact Radiology Procedures US LIVER/GALL BLADDER/PANCREAS Ccp [address] [address] [facility] ULTRASOUND [address] [place] [address] Referral ID Status Reason Start Date Expiration Date Visits Re quested Visits Authorized [id number] Closed 01/08/2022 01/08/2023 1 1 Specialty Diagnoses / Procedures Referred By Contac t Referred To Contact Radiology Procedures XRAY CHEST IMAGE IMPORT(CHRISTIANO) Ivy Chua MD [address] [place] [id number] [facility] DIAGNOSTIC RADIOLOGY [address] [place] [address] [place] [address] Referral ID Status Reason Start Date Expiration Date Visits Re quested Visits Authorized [id number] Closed 01/08/2022 01/08/2023 1 1 Specialty Diagnoses / Procedures Referred By Contac t Referred To Contact Radiology Procedures CT BODY IMAGE IMPORT(CHRISTIANO) DOWNLOAD POWERSHARE IMAGES TO Ivy Robertson MD [address] [place] [id number] [facility] DIAGNOSTIC RADIOLOGY [address] [place] [address] [place] [address] Referral ID Status Reason Start Date Expiration Date Visits Re quested Visits Authorized [id number] Closed 01/08/2022 01/08/2023 1 1 Specialty Diagnoses / Procedures Referred By Contac t Referred To Contact Radiology Procedures XR HUMERUS LEFT Ccp [address] [place] [address] [facility] DIAGNOSTIC RADIOLOGY [address] [place] [address] [place] [address] Referral ID Status Reason Start Date Expiration Date Visits Re quested Visits Authorized [id number] Closed 01/08/2022 01/08/2023 1 1 Specialty Diagnoses / Procedures Referred By Contac t Referred To Contact Radiology Procedures XR ELBOW LEFT MINIMUM 3 VIEWS Ccp [address] [place] [address] [facility] DIAGNOSTIC RADIOLOGY [address] [place] [address] [place] [address] Referral ID Status Reason Start Date Expiration Date Visits Re quested Visits Authorized [id number] Closed 01/08/2022 01/08/2023 1 1 Advance Directives No Advanced Directives Records FoundLatest Code Status on File Code Status Date Activated Date Inactivated Comments Full Code 01/08/2022 7:50 AM Documentation of decision pr ocess for this code status: Discussed with patient or surrogate. Thi s is the code status chosen by the patient/surrogate. Latest Code Status on File Code Status Date Activated Date Inactivated Comments Full Code 01/08/2022 7:50 AM 01/17/2022 8:27 PM Latest Code Status on File Code Status Date Activated Date Inactivated Comments Full Code 01/08/2022 7:50 AM 01/17/2022 8:27 PM Latest Code Status on File Code Status Date Activated Date Inactivated Comments Full Code 01/08/2022 7:50 AM 01/17/2022 8:27 PM Question Answer Comments Documentation of decision process for this code status: Discussed with patient or surrogate. This is the code status chosen by the patient/surrogate. Latest Code Status on File Code Status Date Activated Date Inactivated Comments Full Code 01/08/2022 7:50 AM 01/17/2022 8:27 PM Question Answer Comments Documentation of decision process for this code status: Discussed with patient or surrogate. This is the code status chosen by the patient/surrogate. Latest Code Status on File Code Status Date Activated Date Inactivated Comments Full Code 01/08/2022 7:50 AM 01/17/2022 8:27 PM Question Answer Comments Documentation of decision process for this code status: Discussed with patient or surrogate. This is the code status chosen by the patient/surrogate. Summary Purpose Family History No Family History Records Found Additional Source Comments Scheduled Active and Recently Administ ered Medications (unrecognized section and content) Medication Order 01/15/2022 01/16/2022 01/17/2022 cloNIDine (CATAPRES) 0.1 mg/24HR patch (CANCELED) 0.1 mg, Transdermal, EVERY 7 DAYS, First dose on Rachel 01/09/22 at 1400, Until Discontinued 1446 (Patch Removal - Provider: Chrystal Pritchett LPN)1449 (Patch Applied - Provider: Chrystal Pritchett LPN) copper chloride 2 mg in sodium chloride 0.9 % 250 mL iv infusion 2 mg, Intravenous, DAILY, 5 doses, First dose on 01/14/22 at 1400, Last dose on 01/18/22 at 0900, at 125 mL/hr 1002 (IV New Bag - Provider: Teddy Maher Rn, RN) 0929 (IV New Bag - Provider: Chrystal Pritchett LPN) 0900 (Hold/Not Given - Provider: Ana Salas RN - Reason: Medication unavailable)1118 (IV New Bag - Provider: Ana Salas, RN) diclofenac (VOLTAREN) 1 % topical GEL 2 g, Topical, 4 TIMES DAILY, First dose on Thu01/15/22 at 1700, Until Discontinued 1700 (Hold/Not Given - Provider: Teddy Maher Rn, RN - Reason: Medication unavailable)1752 (Given - Provider: Teddy Maher Rn, RN - Comment: not on unit)2100 (Given - Provider: Farheen Dudley, IRENA) 0900 (Hold/Not Given - Provider: Chrystal Pritchett LPN - Reason: Medication unavailable)1300 (Given - Provider: Chrystal Pritchett LPN)1805 (Given - Provider: Kristen Gan, RN)2210 (Given - Provider: Kristen Gan, RN) 0900 (Hold/Not Given - Provider: Ana Salas RN - Reason: Patient refused)1300 (Hold/Not Given - Provider: Ana Salas RN - Reason: Patient refused)1700 (Hold/Not Given - Provider: Rosa Mensah RN - Reason: Patient refused)2100 (Due) esomeprazole (NEXIUM) capsule 40 mg, Oral, 2 TIMES DAILY 30 MIN BEFORE MEALS, First dose on Thu01/15/22 at 1630, Until Discontinued 1632 (Given - Provider: Teddy Maher Rn, RN) 0919 (Given - Provider: Chrystal Pritchett LPN)1805 (Given - Provider: Kristen Gan RN) 1105 (Given - Provider: Ana Salas RN)1649 (Given - Provider: Rosa Mensah, RN) folic acid 1 MG tablet 1 mg, Oral, DAILY, First dose on Thu01/16/22 at 0900, Until Discontinued 09 (Given - Provider: Chrystal Pritchett LPN) 110 (Given - Provider: Ana Salas RN) insulin lispro (HumaLOG) 100 UNIT/ML injection (CANCELED) 1-7 Units, Subcutaneous, Every 6 hours, First dose (after last modification) on Thu01/13/22 at 2200, Until Discontinued 0346 (Hold/Not Given - Provider: Obdulia Callahan RN - Reason: Not indicated)1007 (Hold/Not Given - Provider: Teddy Maher Rn, RN - Reason: Not indicated)1747 (Given - Provider: Teddy Maher Rn, RN)2200 (Hold/Not Given - Provider: Jose David Tsai RN - Reason: Not indicated) 0800 (Hold/Not Given - Provider: Chrystal Pritchett LPN - Reason: Not indicated)1200 (Hold/Not Given - Provider: Chrystal Pritchett LPN - Reason: Not indicated)1805 (Given - Provider: Kristen Gan RN)2200 (Hold/Not Given - Provider: Kristen Gan RN - Reason: Not indicated) insulin lispro (HumaLOG) 100 UNIT/ML injection 1-7 Units, Subcutaneous, 3 TIMES DAILY BEFORE MEALS, First dose on Thu01/17/22 at 0800, Until Discontinued 0800 (Hold/Not Given - Provider: Ana Salas RN - Reason: Not indicated)1200 (Hold/Not Given - Provider: Ana Salas RN - Reason: Not indicated)1700 (Hold/Not Given - Provider: Rosa Mensah RN - Reason: Patient refused) lactulose 20 g/30 mL oral solution (CANCELED) 20 g, NG Tube, 2 TIMES DAILY, First dose (after last modification) on Rachel 01/09/22 at 2100, Until Discontinued 1002 (Given - Provider: Teddy Maher Rn, RN) lactulose 20 g/30 mL oral solution 20 g, Oral, 2 TIMES DAILY, First dose (after last modification) on 01/15/22 at 2100, Until Discontinued 2100 (Given - Provider: Farheen Dudley RN) 0919 (Given - Provider: Chrystal Pritchett LPN)2208 (Given - Provider: Kristen Gan, IRENA) 1105 (Given - Provider: Ana Salas, IRENA)2100 (Due) multivitamins with minerals (CEROVITE) oral liquid 15 mL, Oral, DAILY, First dose on Rachel 01/09/22 at 1400, Until Discontinued 1002 (Given - Provider: Teddy Maher Rn, RN) 0919 (Given - Provider: Chrystal Pritchett LPN) 110 (Given - Provider: Ana Salas RN) oxyCODONE-acetaminophen (PERCOCET) 5-325 mg per tablet (COMPLETED) 1 Tablet, Oral, ONCE, 1 dose, On Rachel 01/16/22 at 0030 0050 (Given - Provider: Jose David Tsai RN) potassium chloride 20 MEQ/15ML (10%) oral solution (COMPLETED) 40 mEq, Oral, ONCE, 1 dose, On Thu01/15/22 at 0600 0545 (Given - Provider: Obdulia Callahan, IRENA) prednisoLONE (ORAPRED) 15 MG/5ML oral solution 70 mg, Oral, DAILY, First dose on 01/11/22 at 0900, Until Discontinued 1004 (Hold/Not Given - Provider: Teddy Maher Rn, RN - Reason: Medication unavailable)1219 (Given - Provider: Teddy Maher Rn, RN) 1233 (Given - Provider: Chrystal Pritchett LPN) 0900 (Hold/Not Given - Provider: nAa Salas, IRENA - Reason: Medication unavailable)1247 (Given - Provider: Ana Salas, IRENA) rifaximin (XIFAXAN) tablet 550 mg, Oral, 2 TIMES DAILY, First dose (after last modification) on Thu01/12/22 at 2100, Until Discontinued 1002 (Given - Provider: Teddy Maher Rn, RN)2100 (Given - Provider: Farheen Dudley, RN) 0938 (Given - Provider: Chrystal Pritchett LPN)2208 (Given - Provider: Kristen Gan RN) 1110 (Given - Provider: Ana Salas, IRENA)2100 (Due) tramadol (ULTRAM) tablet (COMPLETED) 50 mg, Oral, ONCE, 1 dose, On Thu01/15/22 at 1800 1745 (Given - Provider: Teddy Maher Rn, RN) vitamin B-1 (THIAMINE) tablet 100 mg, Oral, DAILY, First dose on Thu01/16/22 at 0900, Until Discontinued 0918 (Given - Provider: Chrystal Pritchett LPN) 1105 (Given - Provider: Ana Salas RN) vitamin B-12 (CYANOCOBALAMIN) tablet 500 mcg, Oral, DAILY, First dose on Thu01/09/22 at 1400, Until Discontinued 1002 (Given - Provider: Teddy Maher Rn, RN) 0919 (Given - Provider: Chrystal Pritchett LPN) 1105 (Given - Provider: Ana Salas RN) PRN Medication Order 01/15/2022 01/16/2022 01/17/2022 acetaminophen (TYLENOL) 650 MG/20.3ML oral solution SF 500 mg, Oral, EVERY 6 HOURS PRN, Starting on Thu01/10/22 at 2022, Until Discontinued, Mild Pain (pain score 1,2,3), Moderate Pain (pain score 4,5,6) 0250 (Given - Provider: Obdulia Callahan RN)0929 (Given - Provider: Teddy Maher Rn, RN)1632 (Given - Provider: Teddy Maher Rn, RN)2124 (Given - Provider: Farheen Dudley, IRENA) 0359 (Given - Provider: Jose David Tsai RN) dextrose (GLUTOSE) 40 % gel(Linked Group 1) 15 g of glucose, Buccal, PRN, Starting on Thu01/17/22 at 0015, Until Discontinued, blood glucose between 50 - 69 mg/dL, and with no IV access, alert and able to swallow. dextrose (GLUTOSE) 40 % gel(Linked Group 1) 30 g of glucose, Buccal, PRN, Starting on Thu01/17/22 at 0015, Until Discontinued, blood glucose of 49mg/dL or less, and with no IV access, alert and able to swallow. dextrose 10 % iv infusion(Linked Group 1) 125 mL, Intravenous, at 999 mL/hr, PRN, Starting on Thu01/17/22 at 0015, Until Discontinued, For blood glucose less than 70 mg/dL, with IV access and with loss of consciousness or unable to swallow or NPO glucagon (GLUCAGEN) 1 MG injection(Linked Group 1) 1 mg, Subcutaneous, PRN, Starting on Thu01/17/22 at 0015, Until Discontinued, For blood glucose less than 70 mg/dL and with no IV access with loss of consciousness or alert and unable to swallow. LORazepam (ATIVAN) tablet 0.5 mg, Oral, EVERY 6 HOURS PRN, Starting on Thu01/17/22 at 1435, Until Discontinued, Anxiety 1530 (Given - Provider: Ana Salas, RN) ondansetron (ZOFRAN) 4 MG/2ML injection 4 mg, Intravenous Push, EVERY 4 HOURS PRN, Starting on Thu01/14/22 at 0843, Until Discontinued, Vomiting, Nausea tramadol (ULTRAM) tablet 50 mg, Oral, EVERY 6 HOURS PRN, Starting on Thu01/16/22 at 0845, Until Discontinued, Moderate Pain (pain score 4,5,6), Severe Pain (pain score 7,8,9,10) 0919 (Given - Provider: Chrystal Pritchett LPN)2208 (Given - Provider: Kristen Gan, IRENA) Linked Groups Order Group 1: dextrose 10 % iv infusionJump to med 125 mL, Intravenous, at 999 mL/hr, PRN, Starting on Thu01/17/22 at 0015, Until Discontinued, For blood glucose less than 70 mg/dL, with IV access and with loss of consciousness or unable to swallow or NPO Or glucagon (GLUCAGEN) 1 MG injectionJump to med 1 mg, Subcutaneous, PRN, Starting on Thu01/17/22 at 0015, Until Discontinued, For blood glucose less than 70 mg/dL and with no IV access with loss of consciousness or alert and unable to swallow. Or dextrose (GLUTOSE) 40 % gelJump to med 15 g of glucose, Buccal, PRN, Starting on Thu01/17/22 at 0015, Until Discontinued, blood glucose between 50 - 69 mg/dL, and with no IV access, alert and able to swallow. Or dextrose (GLUTOSE) 40 % gelJump to med 30 g of glucose, Buccal, PRN, Starting on Thu01/17/22 at 0015, Until Discontinued, blood glucose of 49mg/dL or less, and with no IV access, alert and able to swallow. 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) Thrombocytopenia (HCC) Afua Umanzor MD [address] [place] [address] [facility]EMAT[facility] [address] [place] [address] Referral ID Status Reason Start Date Expiration Date V isits Requested Visits Authorized [id number] Authorized 01/17/2022 01/17/2023 3 3 Reason Comments Blood test Reason Comments Monitoring/follow-up Fatigue nausea and vomiting Reason Comments AIHA On cellcept Cirrhosis/other liver disease Reason Comments New patient, to establish relationship Specialty Diagnoses / Procedures Referred By Taya hope Referred To Contact Gastroenterology Diagnoses Alcoholic cirrhosis of liver without ascites (HCC) Tanvir Black MD [address] [place] [address] [facility] LIVER [address] [place] [address] Referral ID Status Reason Start Date Expiration Date V isits Requested Visits Authorized [id number] Authorized 05/06/2022 05/06/2023 3 3 Reason Comments AIHA right leg swelling right leg erythema Reason Comments Urine test Consult with specialist Reason Comments Leg/thigh symptoms Pt states has infect ion in R leg x 4 days, seen yesterday for same Reason Comments Leg/thigh symptoms Right leg has a lot on fluids. Reason Comments Medicine Follow Up Reason Comments Leg/thigh symptoms Swelling / red New patient, to establish relationship Reason Comments Boil/carbuncle/cellulitis local Reason Onset Date Comments Cancel Appointment 09/20/2022 Reason Onset Date Comments Refill 10/01/2022 Reason Comments Monitoring/follow-up Reason Comments Refill Reason Comments Fall Reason Comments follow up [facility] an accident [facility] and fell. Reason Comments NEW PATIENT/TEACHING Reason Comments AIHA on [facility] Reason Onset Date Comments Refill 02/09/2023 Reason Onset Date Comments Left Message To Call Back 02/27/2023 Reason Onset Date Comments Refill 03/06/2023 Reason Onset Date Comments Prior Authorization 03/06/2023 Reason Onset Date Comments Refill 03/22/2023 Reason Onset Date Comments Refill 07/13/2023 Care Team (unrecognized sect ion and content) Sustainability Project Coordinator Relationship Specialty Start Date End Date Theo Burks MD [address] [place] [address] [place] [address] PCP - General Family Medicine 08/25/22 Sustainability Project Coordinator Relationship Specialty Start Date End Date Theo Burks MD [address] [place] [address] [place] [address] PCP - General Family Medicine 08/25/22 Sustainability Project Coordinator Relationship Specialty Start Date End Date Theo Burks MD [address] [place] [address] [place] [address] PCP - General Family Medicine 08/25/22 Sustainability Project Coordinator Relationship Specialty Start Date End Date Theo Burks MD [address] [place] [address] [place] [address] PCP - General Family Medicine 08/25/22 Sustainability Project Coordinator Relationship Specialty Start Date End Date Theo Burks MD [address] [place] [address] [place] [address] PCP - General Family Medicine 08/25/22 Abbey Alvaerz MD [address] [place] [address] [place] [address] Fellow Gastroenterology 09/13/22 Maria C Faustin APRN-SUPERVISOR [employer] [address] [place] [address] [place] [address] [employer] PROGRAMMER ANALYST Gastroenterology 09/13/22 Sustainability Project Coordinator Relationship Specialty Start Date End Date Theo Burks MD [address] [place] [address] [place] [address] PCP - General Family Medicine 08/25/22 Abbey Alvarez MD [address] [place] [address] [place] [address] Fellow Gastroenterology 09/13/22 Maria C Faustin, SUPERVISOR TITLE-[employer] [address] [place] [address] [place] [address] [employer] PROGRAMMER ANALYST Gastroenterology 09/13/22 Sustainability Project Coordinator Relationship Specialty Start Date End Date Theo Burks MD [address] [place] [address] [place] [address] PCP - General Family Medicine 08/25/22 Abbey Alvarez MD [address] [place] [address] [place] [address] Fellow Gastroenterology 09/13/22 Maria C Faustin, LIBAN-SUPER[employer] [address] [place] [address] [place] [address] [employer] PROGRAMMER ANALYST Gastroenterology 09/13/22 Sustainability Project Coordinator Relationship Specialty Start Date End Date Theo Burks MD [address] [place] [address] [place] [address] PCP - General Family Medicine 08/25/22 Abbey Alvarez MD [address] [place] [address] [place] [address] Fellow Gastroenterology 09/13/22 Maria C Faustin APRN-SUPER[employer]OR [employer] [address] [place] [address] [place] [address] SAS PROGRAMMER ANALYST Gastroenterology 09/13/22 Sustainability Project Coordinator Relationship Specialty Start Date End Date Theo Burks MD [address] [place] [address] [place] [address] PCP - General Family Medicine 08/25/22 Abbey Alvarez MD [address] [place] [address] [place] [address] Fellow Gastroenterology 09/13/22 Maria C Faustin APRN-SUPER[employer]OR [employer] [address] [place] [address] [place] [address] [employer] PROGRAMMER ANALYST Gastroenterology 09/13/22 Sustainability Project Coordinator Relationship Specialty Start Date End Date Theo Burks MD [address] [place] [address] [place] [address] PCP - General Family Medicine 08/25/22 Abbey Alvarez MD [address] [place] [address] [place] [address] Fellow Gastroenterology 09/13/22 Maria C Faustin, SUPERVISOR TITLE-[employer] [address] [place] [address] [place] [address] SAS PROGRAMMER ANALYST Gastroenterology 09/13/22 Sustainability Project Coordinator Relationship Specialty Start Date End Date Theo Burks MD [address] [place] [address] [place] [address] PCP - General Family Medicine 08/25/22 Abbey Alvarez MD [address] [place] [address] [place] [address] Fellow Gastroenterology 09/13/22 Maria C Faustin SUPERVISOR TITLE-[employer]PER[employer] [address] [place] [address] [place] [address] SAS PROGRAMMER ANALYST Gastroenterology 09/13/22 Sustainability Project Coordinator Relationship Specialty Start Date End Date Theo Burks MD [address] [place] [address] [place] [address] PCP - General Family Medicine 08/25/22 Abbey Alvarez MD [address] [place] [address] [place] [address] Fellow Gastroenterology 09/13/22 Maria C Faustin, SUPERVISOR TITLE-[employer] [address] [place] [address] [place] [address] SAS PROGRAMMER ANALYST Gastroenterology 09/13/22 Sustainability Project Coordinator Relationship Specialty Start Date End Date Theo Burks MD [address] [place] [address] [place] [address] PCP - General Family Medicine 08/25/22 Abbey Alvarez MD [address] [place] [address] [place] [address] Fellow Gastroenterology 09/13/22 Maria C Faustin, SUPERVISOR TITLE-[employer]PER[employer] [address] [place] [address] [place] [address] SAS PROGRAMMER ANALYST Gastroenterology 09/13/22 Sustainability Project Coordinator Relationship Specialty Start Date End Date Theo Burks MD [address] [place] [address] [place] [address] PCP - General Family Medicine 08/25/22 Abbey Alvarez MD [address] [place] [address] [place] [address] Fellow Gastroenterology 09/13/22 Maria C Faustin, SUPERVISOR TITLE-SUPER[employer] [address] [place] [address] [place] [address] SAS PROGRAMMER ANALYST Gastroenterology 09/13/22 Marcello Ibanez MD [address] [place] [address] [place] [address] Fellow Gastroenterology 11/08/22 Sustainability Project Coordinator Relationship Specialty Start Date End Date Theo Burks MD [address] [place] [address] [place] [address] PCP - General Family Medicine 08/25/22 Abbey Alvarez MD [address] [place] [address] [place] [address] Fellow Gastroenterology 09/13/22 Maria C Faustin, SUPERVISOR TITLE-SUPER[employer] [address] [place] [address] [place] [address] SAS PROGRAMMER ANALYST Gastroenterology 09/13/22 Marcello Ibanez MD [address] [place] [address] Fellow Gastroenterology 11/08/22 Sustainability Project Coordinator Relationship Specialty Start Date End Date Theo Burks MD [address] [place] [address] [place] [address] PCP - General Family Medicine 08/25/22 Abbey Alvarez MD [address] [place] [address] [place] [address] Fellow Gastroenterology 09/13/22 Maria C Faustin, SUPERVISOR TITLE-SUPER[employer] [address] [place] [address] [place] [address] SAS PROGRAMMER ANALYST Gastroenterology 09/13/22 Marcello Ibanez MD [address] [place] [address] Fellow Gastroenterology 11/08/22 Sustainability Project Coordinator Relationship Specialty Start Date End Date Theo Burks MD [address] [place] [address] [place] [address] PCP - General Family Medicine 08/25/22 Abbey Alvarez MD [address] [place] [address] [place] [address] Fellow Gastroenterology 09/13/22 Maria C Faustin APRN-SUPERVISOR [employer] [address] [place] [address] [place] [address] SAS PROGRAMMER ANALYST Gastroenterology 09/13/22 Marcello Ibanez MD [address] [place] [address] Fellow Gastroenterology 11/08/22 Sustainability Project Coordinator Relationship Specialty Start Date End Date Theo Burks MD [address] [place] [address] [place] [address] PCP - General Family Medicine 08/25/22 Abbey Alvarez MD [address] [place] [address] [place] [address] Fellow Gastroenterology 09/13/22 Maria C Faustin, LIBAN-SUPERVISOR [employer] [address] [place] [address] [place] [address] SAS PROGRAMMER ANALYST Gastroenterology 09/13/22 Marcello Ibanez MD [address] [place] [address] Fellow Gastroenterology 11/08/22 Sustainability Project Coordinator Relationship Specialty Start Date End Date Theo Burks MD [address] [place] [address] [place] [address] PCP - General Family Medicine 08/25/22 Abbey Alvarez MD [address] [place] [address] [place] [address] Fellow Gastroenterology 09/13/22 Maria C Faustin APRN-SUPERVISOR [employer] [address] [place] [address] [place] [address] SAS PROGRAMMER ANALYST Gastroenterology 09/13/22 Marcello Ibanez MD [address] [place] [address] Fellow Gastroenterology 11/08/22 Sustainability Project Coordinator Relationship Specialty Start Date End Date Theo Burks MD [address] [place] [address] [place] [address] PCP - General Family Medicine 08/25/22 Abbey Alvarez MD [address] [place] [address] [place] [address] Fellow Gastroenterology 09/13/22 Maria C Faustin, SUPERVISOR TITLE-SUPER[employer] [address] [place] [address] [place] [address] SAS PROGRAMMER ANALYST Gastroenterology 09/13/22 Marcello Ibanez MD [address] [place] [address] Fellow Gastroenterology 11/08/22 Sustainability Project Coordinator Relationship Specialty Start Date End Date Theo Burks MD [address] [place] [address] [place] [address] PCP - General Family Medicine 08/25/22 Abbey Alvarez MD [address] [place] [address] [place] [address] Fellow Gastroenterology 09/13/22 Maria C Faustin, SUPERVISOR TITLE-SUPER[employer] [address] [place] [address] [place] [address] SAS PROGRAMMER ANALYST Gastroenterology 09/13/22 Marcello Ibanez MD [address] [place] [address] Fellow Gastroenterology 11/08/22 Sustainability Project Coordinator Relationship Specialty Start Date End Date Theo Burks MD [address] [place] [address] [place] [address] PCP - General Family Medicine 08/25/22 Abbey Alvarez MD [address] [place] [address] [place] [address] Fellow Gastroenterology 09/13/22 Maria C Faustin APRN-DAYAMI [address] [place] [address] [place] [address] SAS PROGRAMMER ANALYST Gastroenterology 09/13/22 Marcello Ibanez MD [address] [place] [address] Fellow Gastroenterology 11/08/22 Sustainability Project Coordinator Relationship Specialty Start Date End Date Theo Burks MD [address] [place] [address] [place] [address] PCP - General Family Medicine 08/25/22 Abbey Alvarez MD [address] [place] [address] [place] [address] Fellow Gastroenterology 09/13/22 Maria C Faustin APRN-SUPERVISOR [employer] [address] [place] [address] [place] [address] SAS PROGRAMMER ANALYST Gastroenterology 09/13/22 Marcello Ibanez MD [address] [place] [address] Fellow Gastroenterology 11/08/22 Sustainability Project Coordinator Relationship Specialty Start Date End Date Theo Burks MD [address] [place] [address] [place] [address] PCP - General Family Medicine 08/25/22 Abbey Alvarez MD [address] [place] [address] [place] [address] Fellow Gastroenterology 09/13/22 Maria C Faustin APRN-SUPERVISOR [employer] [address] [place] [address] [place] [address] SAS PROGRAMMER ANALYST Gastroenterology 09/13/22 Marcello Ibanez MD [address] [place] [address] Fellow Gastroenterology 11/08/22 Sustainability Project Coordinator Relationship Specialty Start Date End Date Theo Burks MD [address] [place] [address] [place] [address] PCP - General Family Medicine 08/25/22 Abbey Alvarez MD [address] [place] [address] [place] [address] Fellow Gastroenterology 09/13/22 Maria C Faustin APRN-SUPERVISOR [employer] [address] [place] [address] [place] [address] SAS PROGRAMMER ANALYST Gastroenterology 09/13/22 Marcello Ibanez MD [address] [place] [address] Fellow Gastroenterology 11/08/22 Sustainability Project Coordinator Relationship Specialty Start Date End Date Theo Burks MD [address] [place] [address] [place] [address] PCP - General Family Medicine 08/25/22 Abbey Alvarez MD [address] [place] [address] [place] [address] Fellow Gastroenterology 09/13/22 Maria C Faustin APRN-SUPERVISOR [employer] [address] [place] [address] [place] [address] SAS PROGRAMMER ANALYST Gastroenterology 09/13/22 Marcello Ibanez MD [address] [place] [address] Fellow Gastroenterology 11/08/22 Sustainability Project Coordinator Relationship Specialty Start Date End Date Theo Burks MD [address] [place] [address] [place] [address] PCP - General Family Medicine 08/25/22 Abbey Alvarez MD [address] [place] [address] [place] [address] Fellow Gastroenterology 09/13/22 Maria C Faustin APRN-SUPERVISOR [employer] [address] [place] [address] [place] [address] SAS PROGRAMMER ANALYST Gastroenterology 09/13/22 Marcello Ibanez MD [address] [place] [address] Fellow Gastroenterology 11/08/22 Sustainability Project Coordinator Relationship Specialty Start Date End Date Theo Burks MD [address] [place] [address] [place] [address] PCP - General Family Medicine 08/25/22 Abbey Alvarez MD [address] [place] [address] [place] [address] Fellow Gastroenterology 09/13/22 Maria C Faustin APRN-SUPERVISOR [employer] [address] [place] [address] [place] [address] SAS PROGRAMMER ANALYST Gastroenterology 09/13/22 Marcello Ibanez MD [address] [place] [address] Fellow Gastroenterology 11/08/22 Sustainability Project Coordinator Relationship Specialty Start Date End Date Theo Burks MD [address] [place] [address] [place] [address] PCP - General Family Medicine 08/25/22 Abbey Alvarez MD [address] [place] [address] [place] [address] Fellow Gastroenterology 09/13/22 Maria C Faustin APRN-SUPERVISOR [employer] [address] [place] [address] [place] [address] SAS PROGRAMMER ANALYST Gastroenterology 09/13/22 Marcello Ibanez MD [address] [place] [address] Fellow Gastroenterology 11/08/22 Sustainability Project Coordinator Relationship Specialty Start Date End Date Theo Burks MD [address] [place] [address] [place] [address] PCP - General Family Medicine 08/25/22 Abbey Alvarez MD [address] [place] [address] [place] [address] Fellow Gastroenterology 09/13/22 Maria C Faustin APRN-SUPERVISOR [employer] [address] [place] [address] [place] [address] SAS PROGRAMMER ANALYST Gastroenterology 09/13/22 Marcello Ibanez MD [address] [place] [address] Fellow Gastroenterology 11/08/22 Sustainability Project Coordinator Relationship Specialty Start Date End Date Theo Burks MD [address] [place] [address] [place] [address] PCP - General Family Medicine 08/25/22 Abbey Alvarez MD [address] [place] [address] [place] [address] Fellow Gastroenterology 09/13/22 Maria C Faustin, LIBAN-SUPER[employer] [address] [facility] [place] [address] SAS PROGRAMMER ANALYST Gastroenterology 09/13/22 Marcello Ibanez MD [address] [place] [address] Fellow Gastroenterology 11/08/22 (unrecognized sect ion and content) No Status Records FoundNo Status Records Found INFORMATION SOURCE (unrecogn ized section and content) DATE CREATED AUTHOR 07/20/2023 [employer] DATE CREATED AUTHOR AUTHOR'S ORGANIZ ATION 08/24/2023 [facility] FOR RECORDS PERTAINING TO PATIENTS WHO ARE OR HAVE BEEN ENROLLED IN A CHEMICAL DEPENDENCY/SUBSTANCEABUSE PROGRAM, SOME INFORMATION MAY BE OMITTED. This clinical summary was aggregated from multiple sources. Caution should be exercised in using it in the provision of clinical care. This summary normalizes information from multiple sources, and as a consequence, information in this document may materially change the coding, format and clinical context of patient data. In addition, data may be omitted in some cases. CLINICAL DECISIONS SHOULD BE BASED ON THE PRIMARY CLINICAL RECORDS. [employer] provides no warranty or guarantee of the accuracy or completeness of information in this document.
== END 2023-08-12 07:59 | disposition home or self-care (01) ==
LOC: VC 07:58
PROVIDERS: PCP Radiology Diagnostic Radiology; Visit Provider Radiology Diagnostic Radiology
DX: I80.01 Phlebitis and thrombophlebitis of superficial vessels of right lower extremity (principal)
CPT/HCPCS: 93971; G0463

== ENCOUNTER 2023-08-12 13:04 | Outpatient (OUT) | payer OTHER, SELFPAY | END 2023-08-12 13:05 | disposition home or self-care (01) | LOC: WC 13:07 | PROVIDERS: PCP Radiology Diagnostic Radiology; Visit Provider Podiatrist Foot & Ankle Surgery | DX: M71.072 Abscess of bursa, left ankle and foot (principal) | CPT/HCPCS: 10061; 87070; 87150; 87186; 87205; A6213; G0463 ==

== ENCOUNTER 2023-08-12 14:26 | Observation (INO) | payer OTHER, SELFPAY ==
[2023-08-12 14:29] VITALS: BP 172/89; PULSE 74; RESP 16; TEMP 36.6; O2SAT 100; BMI 25.5
--- NOTE | 2023-08-12 14:38 | US_ITS ---
The [address] [address] Patient Name: WILL ANDERSON MRN: [id number] date: 1985 Sex: M Assigned Patient Location: [place] Current Patient Location: [place] Accession/Order Number: [id number] Exam Date: 08/12/2023 15:10 Report Date: 08/12/2023 15:52 At the request of: LEO BOSWELL Procedure: US extremity nonvascular LT EXAMINATION: US extremity nonvascular LT HISTORY: Abscess COMPARISON: No relevant comparison available. FINDINGS: 4.6 x 4.3 x 1.3 cm complex hypervascular mass corresponding to the patient's wound. This extends from the skin surface to the underlying muscle. US/US extremity nonvascular LT IMPRESSION: 4.6 cm complex hypervascular mass, indeterminate. Consider abscess remnant vs tumor. Electronically authenticated by: JOHN ANDREA Date: 08/12/2023 15:52
--- NOTE | 2023-08-12 14:41 | ED.GENADUL1 ---
HPI - General Adult General Chief complaint: Skin/Abscess/Foreign Body Stated complaint: WOUND CHECK Time Seen by Provider: 08/12/23 14:27 Source: patient Mode of arrival: walk-in Limitations: no limitations History of Present Illness HPI narrative: Patient is a 37-year-old male with a history of chronic liver disease who presents to the emergency department from the wound care clinic to be admitted for IV antibiotics and surgical I&D to the left calf tomorrow. Patient is not diabetic. He states for several weeks he has had an abscess and swollen area to the left medial calf. He was seen today at the wound clinic and they attempted an I&D. Patient apparently did not tolerate this and they were not able to successfully do the I&D, they requested he come to the ER for admission for IV antibiotics. Patient reports pain with ambulation. No fevers or vomiting. He has not had any drainage from the area. Related Data Allergies Allergy/AdvReac Type Severity Reaction Status Date / Time amoxicillin Allergy Severe Verified 08/12/23 14:35 Penicillins Allergy Severe Verified 08/12/23 14:35 Review of Systems ROS Constitutional Denies: fever or chills Ears, nose, mouth, and throat Denies: throat pain Cardiovascular Denies: chest pain Respiratory Denies: shortness of breath or cough Gastrointestinal Denies: nausea or vomiting Musculoskeletal Reports: extremity pain and extremity swelling Integumentary/Breast Reports: skin pain, skin tenderness and skin swelling; Denies: rash Neurological Denies: headache Exam Narrative Exam Narrative: Gen.: Awake, alert, in no distress Head: Normocephalic, atraumatic ENT: Moist mucous membranes Respiratory: No respiratory distress Extremities: Moves extremities equally, dressing to the right lower extremity noted, left lower extremity with swollen area to the left medial calf, no surrounding erythema. Calf is soft and compressible. Psych: Normal mood and affect Neuro: No focal neuro deficit Skin: Warm, dry, iodine gauze noted to a small incision in the left medial calf with abscess Constitutional Vital Signs, click to edit/add: Last Vital Signs Temp 97.9 F 08/12/23 14:29 Pulse 74 08/12/23 14:29 Resp 16 08/12/23 14:29 BP 172/89 H 08/12/23 14:29 Pulse Ox 100 08/12/23 14:29 O2 Del Method Room Air 08/12/23 14:29 Course Vital Signs Vital signs: Vital Signs Temperature 97.9 F 08/12/23 14:29 Pulse Rate 74 08/12/23 14:29 Respiratory Rate 16 08/12/23 14:29 Blood Pressure 172/89 H 08/12/23 14:29 Pulse Oximetry 100 08/12/23 14:29 Oxygen Delivery Method Room Air 08/12/23 14:29 Temperature 97.9 F 08/12/23 14:29 Pulse Rate 74 08/12/23 14:29 Respiratory Rate 16 08/12/23 14:29 Blood Pressure 172/89 H 08/12/23 14:29 Pulse Oximetry 100 08/12/23 14:29 Oxygen Delivery Method Room Air 08/12/23 14:29 Medical Decision Making MDM Narrative Medical decision making narrative: IV established with labs, cultures drawn. IV clindamycin, morphine and Zofran ordered for the patient, he is penicillin allergic. Nonvascular ultrasound ordered for the patient to assess the area of abscess, patient admitted to the hospitalist (Dr. Sullivan [id number]) for podiatry consult tomorrow for surgery. Patient stable at time of admission with no fever or tachycardia. Medical Records Medical records reviewed: Yes I reviewed the patient's medical records Lab Data Lab results reviewed: Yes I reviewed the patient's lab results Discharge Plan Discharge Chief Complaint: Skin/Abscess/Foreign Body Time of Disposition Decision: 14:48 Referrals: Crow Prince MD [Primary Care Provider] - 1 week
[2023-08-12] MEDS: MORPHINE SULFATE 4 MG/ML VIAL IV (15:12)
[2023-08-12] MEDS: CLINDAMYCIN PHOSPHATE/D5W 600 MG/50 ML PIGGYBACK 100 MG IV ×2 (15:12→22:39)
[2023-08-12] MEDS: ONDANSETRON PF 4 MG/2 ML VIAL IV (15:12)
[2023-08-12 15:20] LABS: Basophils Absolute Auto 0.1 10^3/uL (0.0-0.1); Basophils Percent Auto 1.2 % (0.2-2.0); Eosinophils Absolute Auto 0.2 10^3/uL (0.0-0.7); Eosinophils Percent Auto 2.3 % (0.9-7.0); Hemoglobin 12.5 g/dL (14.0-18.0); Immature Granulocytes Abs Auto 0.33 10^3/uL (0.00-0.03); Immature Granulocytes Pct Auto 3.9 % (0.0-0.5); Lymphocytes Absolute Auto 1.5 10^3/uL (1.2-3.8); Lymphocytes Percent Auto 18.3 % (20.5-60.0); Mean Corpuscular HGB Conc 32.9 g/dL (29.9-35.2); Mean Corpuscular Hemoglobin 36.4 pg (25.9-34.0); Monocytes Absolute Auto 0.9 10^3/uL (0.3-0.8); Monocytes Percent Auto 10.2 % (1.7-12.0); Neutrophils Absolute Auto 5.4 10^3/uL (1.4-6.5); Neutrophils Percent Auto 64.1 % (43.0-75.0); Platelet Count 84 10^3/uL (150-450); Red Blood Count 3.43 10^6/uL (4.70-6.10); Red Cell Distribution Width 15.9 % (11.0-15.0); White Blood Count 8.4 10^3/uL (4.0-11.0)
[2023-08-12 15:21] VITALS: BP 155/76; PULSE 68; RESP 16; TEMP 37.1; O2SAT 99
[2023-08-12 15:32] LABS: INR 1.63; Prothrombin Time 16.8 sec (9.0-11.6)
[2023-08-12 15:34] LABS: Alanine Aminotransferase 65 U/L (16-63); Albumin Globulin Ratio 0.5; Albumin Level 2.6 g/dL (3.4-5.0); Alkaline Phosphatase 293 U/L (46-116); Anion Gap 9.3; Aspartate Amino Transferase 84 U/L (15-37); BUN Creatinine Ratio 13.3; Bilirubin Total 6.7 mg/dL (0.2-1.0); Calcium 8.3 mg/dL (8.5-10.1); Carbon Dioxide 28.5 mmol/L (21.0-32.0); Chloride 101 mmol/L (98-107); Estimated GFR (African America >60 (>=60); Estimated GFR (Non-African Ame >60 (>=60); Globulin 5.3 g/dL; Glucose 113 mg/dL (74-106); Potassium 3.8 mmol/L (3.5-5.1); Sodium 135 mmol/L (136-145); Total Protein 7.9 g/dL (6.4-8.2)
[2023-08-12 15:36] LABS: Erythrocyte Sedimentation Rate 61 mm/hr (<=15)
[2023-08-12 15:39] LABS: Mean Corpuscular Volume 110.8 fL (80.0-94.0)
[2023-08-12 15:42] LABS: Lactate/Lactic Acid 1.1 mmol/L (0.4-2.0)
[2023-08-12 16:14] VITALS: BP 155/76; PULSE 68; RESP 116; RESP 78; TEMP 36.7; O2SAT 99; BMI 22.6
[2023-08-12 20:00] VITALS: RESP 20
[2023-08-12 21:06] VITALS: BP 124/67; PULSE 82; RESP 18; TEMP 36.6; O2SAT 98
[2023-08-13] VITALS (14 sets, daily range): BP systolic 102–136; BP diastolic 54–76; PULSE 63–88; RESP 13–18; TEMP 36.3–37.2; O2SAT 96–100
[2023-08-13 04:55] LABS: Basophils Absolute Auto 0.1 10^3/uL (0.0-0.1); Basophils Percent Auto 0.8 % (0.2-2.0); Eosinophils Absolute Auto 0.2 10^3/uL (0.0-0.7); Eosinophils Percent Auto 2.1 % (0.9-7.0); Hematocrit 33.3 % (42.0-54.0); Hemoglobin 11.2 g/dL (14.0-18.0); Immature Granulocytes Abs Auto 0.18 10^3/uL (0.00-0.03); Immature Granulocytes Pct Auto 2.1 % (0.0-0.5); Lymphocytes Absolute Auto 1.2 10^3/uL (1.2-3.8); Lymphocytes Percent Auto 14.3 % (20.5-60.0); Mean Corpuscular HGB Conc 33.6 g/dL (29.9-35.2); Mean Corpuscular Hemoglobin 36.5 pg (25.9-34.0); Mean Corpuscular Volume 108.5 fL (80.0-94.0); Mean Platelet Volume 10.3 fL (9.5-13.5); Monocytes Absolute Auto 0.7 10^3/uL (0.3-0.8); Monocytes Percent Auto 8.6 % (1.7-12.0); Neutrophils Percent Auto 72.1 % (43.0-75.0); Platelet Count 73 10^3/uL (150-450); Red Blood Count 3.07 10^6/uL (4.70-6.10); Red Cell Distribution Width 15.6 % (11.0-15.0); White Blood Count 8.4 10^3/uL (4.0-11.0)
[2023-08-13 05:14] LABS: Alanine Aminotransferase 61 U/L (16-63); Albumin Globulin Ratio 0.5; Albumin Level 2.3 g/dL (3.4-5.0); Alkaline Phosphatase 233 U/L (46-116); Anion Gap 8.9; Aspartate Amino Transferase 76 U/L (15-37); Bilirubin Total 6.6 mg/dL (0.2-1.0); Calcium 8.1 mg/dL (8.5-10.1); Carbon Dioxide 26.6 mmol/L (21.0-32.0); Chloride 101 mmol/L (98-107); Estimated GFR (African America >60 (>=60); Estimated GFR (Non-African Ame >60 (>=60); Globulin 4.5 g/dL; Glucose 100 mg/dL (74-106); Potassium 4.5 mmol/L (3.5-5.1); Sodium 132 mmol/L (136-145); Total Protein 6.8 g/dL (6.4-8.2)
[2023-08-13] MEDS: CLINDAMYCIN PHOSPHATE/D5W 600 MG/50 ML PIGGYBACK 100 MG IV ×3 (05:20→21:59)
[2023-08-13 08:47] LABS: C Reactive Protein <0.50 mg/dL (<=0.50)
[2023-08-13] MEDS: PHYTONADIONE (VIT K1) 5 MG in 0.9 % SODIUM CHLORIDE 50 ML 202 MG IV (09:00)
[2023-08-13 09:25] LABS: Glucometer 81 mg/dL (74-106)
[2023-08-13] MEDS: LIDOCAINE HCL 1% 100 MG/10 ML MDV INJ (10:11)
[2023-08-13] MEDS: LIDOCAINE HCL 1%-EPINEPHRINE 1:100,000 20 ML MDV INJ (10:17)
--- NOTE | 2023-08-13 10:26 | PM.ORONB ---
Brief Operative Note Date of procedure: 08/13/23 Pre-op diagnosis: deep left leg abscess Post-op diagnosis: same as pre-op Procedure: PROCEDURES PERFORMED: incision and drainage of deep left leg abscess INTRAOPERATIVE FINDINGS: abscess noted on the mid lower leg at the medial aspect. Purulence was noted to track into the posterior musculature of the leg. infection did not probe to bone. Patient did lead more than what is typical however consistent with liver disease. PROCEDURE IN DETAIL: Patient was identified in pre op and consent was reviewed. Correct side and site were identified and marked. Pre-op antibiotics were started. Patient was brought to OR suite and place on table in a supine position. General anesthesia was administered. Tourniquet applied. Operative extremity was prepped and draped in usual sterile fashion. Formal time-out was performed. local anesthesia with 10 mL of one percent lidocaine plain and 10 mL of lidocaine with epi was injected around the periphery of the abscess. the existing 2 cm incision was extended proximally and distally to allow for better exposure. Blunt dissection with a hemostat was performed to ensure and purulence was evacuated. Tissue swab was obtained of the purulence. The purulence did track down into the musculature of the posterior leg. The surgical site was debrided of all nonviable tissue. After full excision the surgical site was irrigated with 3 L of copious sterile saline. the surgical site and abscess were then packed with quarter inch plain packing soaked in Betadine. hemostasis was controlled with pressure and elevation. Then a dry sterile dressing consisting of Adaptic 4 x 4's, ABDs, Kerlix and Job wrap were applied POSTOPERATIVE PLAN: transfer to medical surgical unit Advance diet as tolerated Weightbearing as tolerated Keep dressing clean dry and intact and reinforce as needed continue IV antibiotics Patient will likely be discharged tomorrow morning on PO antibiotics as long as no medical issues arise Surgeon: Vlad Paris Estimated blood loss (mL): 25 Tourniquet time (min): 0 Pathology: other (tissue swab) Condition: stable Disposition: PACU Preoperative Details Reason for procedure: patient is a 37-year-old male with alcoholic cirrhosis who was referred to us by Dr. Prince for left leg abscess. He was seen in the wound center yesterday and I and D was attempted under local anesthesia however patient could not tolerate therefore I recommended that he be admitted and placed on IV antibiotics. On admission his ESR was sixty-one with no leukocytosis. After discussion with him I recommended incision and drainage in the OR and I outlined the potential risks and benefits. Written and verbal consent was obtained to proceed
[2023-08-13 10:51] LABS: Glucometer 79 mg/dL (74-106)
[2023-08-13] MEDS: LACTULOSE 10 GM/15 ML UD CUP 20 GM PO ×2 (11:21→21:59)
[2023-08-13] MEDS: MULTIVITAMIN TABLET 1 TAB PO (11:21)
[2023-08-13] MEDS: FOLIC ACID 1 MG TABLET PO (11:21)
--- NOTE | 2023-08-13 11:33 | P.HP_ITS ---
<Statement entered by Shaikh Laurie MD - 08/13/23 12:23> This documentation has been reviewed and approved. Seen and examined post operatively. Comfortable and in no acute distress. Chart reviewed, case discussed with Ruthie. Exam In bed, comfortable. Eating his food. Jaundiced. CTA b/l, no wheezing Ext: post op dressing - not removed Assessment and Plan Cellulitis with abscess Liver Cirrhosis, alcoholic Warm auto immune hemolytic anemia Abnormal liver enzymes S/p I&D. Patient doing well, comfortable and no acute complaints to offer. Old labs reviewed - Hb , liver enzymes at baseline. He is on bactrim for px because of immunosupression. Stable for discharge from medical point of view on oral clindamycin. Will make sure Podiatry is ok with that. H&P: HPI History of Present Illness Chief complaint: WOUND CHECK, Abscess Left Leg Narrative: 08/13/23 0845 This is a 37-year-old male patient with a past medical history as outlined below including chronic liver disease who presented to the ED yesterday afternoon from the wound clinic to be admitted for IV ABX and surgical I&D this morning. Surgical I&D was attempted at the wound clinic yesterday but the patient was apparently unable to tolerate this. The patient reports his wounds originated from chronic lower extremity swelling due to varicose veins and venous stasis likely secondary to his advanced liver disease. He reports pain with ambulation. He denies fevers or vomiting, shortness of breath or chest pain. No purulent drainage from the affected area per patient report. Workup in the ED revealed chronic elevation of liver enzymes due to his known disease. His INR was elevated at 1.63. ESR and CRP were both mildly elevated as well. Otherwise no leukocytosis, fever, or other vital sign abnormality. A LLE US revealed a 4.6 cm complex hypervascular mass - abscess remnant vs tumore. He was initiated on IV clindamycin and placed in observation last night with the hospitalist service pending surgical I&D per the podiatry/wound service later today. At the time of my exam the patient is resting comfortably in bed. He denies any acute complaints other than pain to the affected extremity. He is being taken to the OR immediately after my exam and may possibly be discharged later today pending the surgical outcome. Review of Systems ROS Status of ROS 10 or more systems reviewed and unremark able except as noted in history and below PFSH PFS Medical History (Updated 08/12/23 @ 16:17 by July Merritt) Liver cirrhosis ?K74.60 - Unspecified cirrhosis of liver (ICD-10) Family History (Updated 08/12/23 @ 16:18 by July Merritt) Grandmother Family history of cancer Father Family history of diabetes mellitus Social History (Updated 08/12/23 @ 16:20 by July Merritt) Within the past year, how often did you have a drink containing alcohol: never Score interpretation: A score less than 4 is consistent with normal alcohol consumption. Smoking status: Former smoker Non-prescribed substance use: denies use Previous occupational history: [employer] Highest level of school completed/degree received: high school graduate Are you now , , , , never or living with a partner: never In a typical week, how many times do you talk on the telephone with family, friends, or neighbors: 3 or more times per week How often do you get together with friends or relatives: twice per week How often do you attend nondenominational or rastafarian services: never Do you belong to any clubs or organizations such as nondenominational groups unions, [employer] or athletic groups, or school groups: no Total score: 1 Score interpretation: A score of less than or equal to 1 indicates the most socially isolated. Little interest or pleasure in doing things: not at all Feeling down, depressed, or hopeless: not at all Feel stressed/tense/nervous/anxious/difficulty sleeping: to some extent Life stressor details: Pain in legs Meds Home Medications and Allergies Home Medications Medication Instructions Recorded Confirmed Type folic acid 1 mg tablet 1 mg PO DAILY 08/12/23 08/12/23 History lactulose 10 gram/15 mL (15 mL) 30 ml PO BID 08/12/23 08/12/23 History oral solution multivitamin with folic acid 400 1 tab PO DAILY 08/12/23 08/12/23 History mcg tablet (Tab-A-Scott) mycophenolate mofetil 500 mg tablet 500 mg PO DAILY 08/12/23 08/12/23 History potassium chloride 20 mEq 20 meq PO BID 08/12/23 08/12/23 History tablet,extended release (K-Tab) spironolactone 50 mg tablet 50 mg PO DAILY 08/12/23 08/12/23 History sulfamethoxazole 800 1 tab PO .every 3 days 08/12/23 08/12/23 History mg-trimethoprim 160 mg tablet Allergies Allergy/AdvReac Type Severity Reaction Status Date / Time amoxicillin Allergy Severe Verified 08/12/23 14:35 Penicillins Allergy Severe Verified 08/12/23 14:35 Exam Constitutional Vital Signs, click to edit/add: Last Vital Signs Temp 98.1 F 08/13/23 11:16 Pulse 63 08/13/23 11:16 Resp 18 08/13/23 11:16 BP 131/70 08/13/23 11:16 Pulse Ox 98 08/13/23 11:16 O2 Del Method Room Air 08/13/23 11:16 Common normals: no apparent distress, oriented x3, alert and well nourished General appearance: cooperative Orientation/consciousness: Yes awake HENMT Common normals: normocephalic, head/scalp atraumatic, hearing grossly normal bilaterally, external nose normal and moist oral mucous membranes Eye Common normals: PERRL, EOMs intact bilaterally, conjunctivae normal and no scleral icterus Alignment: alignment normal Eyelid: eyelids normal Neck & C-Spine Common normals: full ROM, supple and no JVD Chest Common normals: inspection of chest normal Chest: symmetrical chest wall rise Respiratory Common normals: normal respiratory effort, no retractions, no use of accessory muscles and clear to auscultation bilaterally Effort & inspection: able to speak in complete sentences Cardio Common normals: no JVD, regular rate, regular rhythm, S1 normal heart sound, S2 normal heart sound, no gallops, no clicks, no rub and peripheral pulses 2+ thro ughout GI Common normals: Normal to inspection, nondistended, normoactive bowel sounds present, soft to palpation, non-tender, no masses and no bruits Bladder/kidney exam: bladder normal to palpation Back & Pelvis Common normals: thoracic and lumbar spine normal to inspection Extremity Common normals: normal capillary refill and no pedal edema General: normal exam except as noted; no clubbing and no cyanosis Right lower extremity: lower leg (Wound care dressing D&I. No sign pain/swelling) Left lower extremity: lower leg (Medial wound w/ sl induration, calor, eryth, tender. Sang drng on drsg) Neuro Kalyani Coma Scale: GCS not evaluated Common normals: oriented x3, CN's II-XII intact bilaterally, moves all extremities, no focal motor deficits and no sensory deficits noted Sensorium/orientation: awake and alert Speech: speech normal Motor exam: strength 5/5 throughout Psych Common normals: mental status grossly normal, thought process normal, affect normal and activity/motor behavior normal Thought process: normal thought process Results Labs Labs: Short CBC 08/12/23 08/13/23 Range/Units 14:55 04:46 WBC 8.4 8.4 (4.0-11.0) 10^3/uL Hgb 12.5 L 11.2 L (14.0-18.0) g/dL Hct 38.0 L 33.3 L (42.0-54.0) % Plt Count 84 L 73 L (150-450) 10^3/uL BMP 08/12/23 08/13/23 14:55 04:46 Sodium 135 L 132 L Potassium 3.8 4.5 Chloride 101 101 Carbon Dioxide 28.5 26.6 BUN 8.0 8.0 Creatinine 0.60 L 0.50 L Glucose 113 H 100 Calcium 8.3 L 8.1 L Liver Function 08/12/23 08/13/23 Range/Units 14:55 04:46 Total Bilirubin 6.7 H 6.6 H (0.2-1.0) mg/dL AST 84 H 76 H (15-37) U/L ALT 65 H 61 (16-63) U/L Alkaline Phosphatase 293 H 233 H (46-116) U/L Albumin 2.6 L 2.3 L (3.4-5.0) g/dL Pulse Oximetry Attestation: I have reviewed the pertinent pulse oximetry results. Imaging L extremity US: Attestation: I have reviewed the pertinent imaging results. Radiologist's impression: IMPRESSION: 4.6 cm complex hypervascular mass, indeterminate. Consider abscess remnant vs tumor. Assessment and Plan Assessment and Plan (1) Abscess of skin or subcutaneous tissue: Assessment and Plan: ACUTE ON CHRONIC * Adm observation * Continue IVPB clindamycin * Give 5mg IV Vit K pre-op d/t elevated INR in setting of chronic thrombocytopenia * NPO for surgery today * Defer to Surgical service for surgical dressings, weight bearing, and discharge antibiotics * CBC in AM if pt remains in the hospital post-operatively (2) Liver cirrhosis: Assessment and Plan: CHRONIC * Unknown etiology - pt whisked off to surgery preventing further exploration of his medical history * Continue home lactulose, CellCept (apparently prescribed for blood disorder related to his liver disease) * CMP in AM if he remains in the hospital
[2023-08-13] MEDS: OXYCODONE HCL 5 MG TABLET PO (19:32)
[2023-08-13] MEDS: ONDANSETRON PF 4 MG/2 ML VIAL IV (19:33)
[2023-08-14] MEDS: OXYCODONE HCL 5 MG TABLET PO (04:24)
[2023-08-14 05:31] VITALS: BP 120/63; PULSE 75; RESP 18; TEMP 36.6; O2SAT 96
[2023-08-14 06:04] LABS: Basophils Absolute Auto 0.1 10^3/uL (0.0-0.1); Basophils Percent Auto 0.7 % (0.2-2.0); Eosinophils Absolute Auto 0.1 10^3/uL (0.0-0.7); Eosinophils Percent Auto 1.7 % (0.9-7.0); Hemoglobin 11.3 g/dL (14.0-18.0); Immature Granulocytes Abs Auto 0.25 10^3/uL (0.00-0.03); Immature Granulocytes Pct Auto 3.1 % (0.0-0.5); Lymphocytes Absolute Auto 1.5 10^3/uL (1.2-3.8); Lymphocytes Percent Auto 18.6 % (20.5-60.0); Mean Corpuscular HGB Conc 33.2 g/dL (29.9-35.2); Mean Corpuscular Hemoglobin 36.6 pg (25.9-34.0); Mean Platelet Volume 12.6 fL (9.5-13.5); Monocytes Percent Auto 12.2 % (1.7-12.0); Neutrophils Absolute Auto 5.2 10^3/uL (1.4-6.5); Neutrophils Percent Auto 63.7 % (43.0-75.0); Platelet Count 65 10^3/uL (150-450); Red Blood Count 3.09 10^6/uL (4.70-6.10); Red Cell Distribution Width 15.5 % (11.0-15.0); White Blood Count 8.1 10^3/uL (4.0-11.0)
[2023-08-14] MEDS: CLINDAMYCIN PHOSPHATE/D5W 600 MG/50 ML PIGGYBACK 100 MG IV (06:52)
[2023-08-14 06:58] LABS: Alanine Aminotransferase 59 U/L (16-63); Albumin Globulin Ratio 0.5; Albumin Level 2.3 g/dL (3.4-5.0); Alkaline Phosphatase 164 U/L (46-116); Anion Gap 11.5; Aspartate Amino Transferase 98 U/L (15-37); BUN Creatinine Ratio 16.3; Calcium 8.3 mg/dL (8.5-10.1); Carbon Dioxide 24.2 mmol/L (21.0-32.0); Chloride 101 mmol/L (98-107); Estimated GFR (African America >60 (>=60); Estimated GFR (Non-African Ame >60 (>=60); Globulin 4.7 g/dL; Glucose 98 mg/dL (74-106); Potassium 4.7 mmol/L (3.5-5.1); Sodium 132 mmol/L (136-145)
--- NOTE | 2023-08-14 08:10 | PM.PN ---
Progress Note: Subjective Subjective Interval history: Patient seen resting comfortably in bed this a.m. POD #1 s/p left leg incision and drainage of abscess, DOS 08/13/2023. Patient states that since procedure yesterday pain is improved and controlled with p.o. meds. He denies any acute events overnight. He denies any other acute lower extremity complaints. Denies any constitutional symptoms at time of visit. Exam Narrative Exam Narrative: BLE dressing left CDI. CFT intact to digits. Skin temperature warm symmetric proximal and distal dressings. No open lesions erythema or ecchymosis proximal or distal to dressing. No pain with compression of calf and thigh compartments. Constitutional Vital Signs, click to edit/add: Last Vital Signs Temp 97.8 F 08/14/23 05:31 Pulse 75 08/14/23 05:31 Resp 18 08/14/23 05:31 BP 120/63 08/14/23 05:31 Pulse Ox 96 08/14/23 05:31 O2 Del Method Room Air 08/14/23 05:31 Progress Note: Objective Labs Labs: Short CBC 08/14/23 Range/Units 04:57 WBC 8.1 (4.0-11.0) 10^3/uL Hgb 11.3 L (14.0-18.0) g/dL Hct 34.0 L (42.0-54.0) % Plt Count 65 L (150-450) 10^3/uL BMP 08/14/23 04:57 Sodium 132 L Potassium 4.7 Chloride 101 Carbon Dioxide 24.2 BUN 7.0 Creatinine 0.43 L Glucose 98 Calcium 8.3 L Liver Function 08/14/23 Range/Units 04:57 Total Bilirubin 8.0 H (0.2-1.0) mg/dL AST 98 H (15-37) U/L ALT 59 (16-63) U/L Alkaline Phosphatase 164 H (46-116) U/L Albumin 2.3 L (3.4-5.0) g/dL Progress Note: A&P Assessment and Plan (1) Abscess of skin or subcutaneous tissue: Plan Patient examined evaluated. All findings gina with patient all questions answered for satisfaction. Labs and imaging reviewed. Bilateral lower extremity dressings left CDI. Can weight-bear as tolerated IntraOp cultures pending. Plan to DC on p.o. doxycycline 100 twice daily. Stable to DC today from podiatry's perspective. Will leave left lower extremity dressing clean dry and intact until follow-up. Right lower extremity dressing change daily with Santyl and dry sterile dressing. Order for Santyl was dispensed to his pharmacy, however for able to dispense it while he is inpatient he can take this home with him and avoid any issues with getting it filled. Will follow-up in 1 week in the wound center to evaluate his progress. May call in the meantime with any questions or concerns.
--- NOTE | 2023-08-14 09:36 | CM.NOTE ---
Rounding with Dr. Sullivan. Discussed discharge plan of oral antibiotics with discharge today. Dr. Sullivan discussed GI group at [facility]. Pt. states his primary care doctor is supposed to be setting this up for him but he has not heard anything. Encouraged patient to reach out to his primary care to see and follow up on the referral. Pt. voiced understanding.
[2023-08-14] MEDS: FOLIC ACID 1 MG TABLET PO (09:43)
[2023-08-14] MEDS: MULTIVITAMIN TABLET 1 TAB PO (09:43)
[2023-08-14] MEDS: LACTULOSE 10 GM/15 ML UD CUP 20 GM PO (09:43)
--- NOTE | 2023-08-14 12:21 | P.DS_ITS ---
DS: Providers Provider Date of admission: 08/12/23 14:53 Primary care physician: Crow Prince MD Attending physician on discharge: Shaikh Laurie Discharging clinician: Shaikh Laurie Anticipated date of discharge: 08/14/23 DS: Diagnosis Discharge Diagnosis (1) Abscess of skin or subcutaneous tissue: Assessment and plan: s/p I&D. Stable for d/c on oral doxycycline. F/u wound clinic. Qualifiers: Site of cutaneous abscess: extremity Site of cutaneous abscess of extremity: lower extremity Laterality: left Qualified Code(s): L02.416 - Cutaneous abscess of left lower limb (2) Liver cirrhosis, alcoholic: Assessment and plan: Patient's PCP is in the process of finding him a GI provider. Qualifiers: Ascites presence: without ascites Qualified Code(s): K70.30 - Alcoholic cirrhosis of liver without ascites (3) Warm autoimmune hemolytic anemia: Assessment and plan: On mycophenolate. no recent exacerbations. (4) Hyperbilirubinemia: Assessment and plan: Due to hx of hemolytic anemia. Bilirubin at baseline. (5) Immunosuppressed status: Assessment and plan: He is mycophenolate and this immunosuppressed. Resume bactrim px once course of doxycycline finishes DS: Summary Hospital Course Hospital Course: Patient admitted for leg LE abscess/cellulitis after wound clinic was unable to perform I&D in office due to pain Patient was admitted for IV abx, and had I&D performed 08/13 --> kept overnight for IV abx as immunocompromised status Doing well today. No complaints to offer. Stable for d/c Needs f/u with wound Status at Discharge Functional status at discharge: independent ambulation Overall status at discharge: patient is back to baseline Time Spent with Patient Time attestation: Total time spent providing and/or coordinating discharge services: Time spent: greater than 30 minutes Exam Constitutional Vital Signs, click to edit/add: Last Vital Signs Temp 97.8 F 08/14/23 05:31 Pulse 75 08/14/23 05:31 Resp 18 08/14/23 05:31 BP 120/63 08/14/23 05:31 Pulse Ox 96 08/14/23 05:31 O2 Del Method Room Air 08/14/23 05:31 Documenting provider has reviewed patient's vital signs: yes Common normals: no apparent distress and oriented x3 General appearance: cooperative Eye Other: jaundice noted. Respiratory Common normals: normal respiratory effort and clear to auscultation bilaterally Effort & inspection: able to speak in complete sentences Auscultation: clear to auscultation bilaterally Cardio Common normals: regular rate, S1 normal heart sound and S2 normal heart sound Rate: regular rate Heart sounds: S1 normal and S2 normal Extremity Other: left leg small wound anteriorly. Neuro Common normals: oriented x3, moves all extremities and no focal motor deficits DS: Data Data Completed and Pending Labs on day of discharge: Labs from last 24 hours 08/14/23 04:57 WBC 8.1 RBC 3.09 L Hgb 11.3 L Hct 34.0 L MCV 110.0 H MCH 36.6 H MCHC 33.2 RDW 15.5 H Plt Count 65 L MPV 12.6 Neut % (Auto) 63.7 Lymph % (Auto) 18.6 L [place] % (Auto) 12.2 H Eos % (Auto) 1.7 Baso % (Auto) 0.7 Neut # (Auto) 5.2 Lymph # (Auto) 1.5 [place] # (Auto) 1.0 H Eos # (Auto) 0.1 Baso # (Auto) 0.1 Abs Immat Gran (auto) 0.25 H Imm/Tot Granulo (auto) 3.1 H Sodium 132 L Potassium 4.7 Chloride 101 Carbon Dioxide 24.2 Anion Gap 11.5 BUN 7.0 Creatinine 0.43 L Est GFR ( Amer) >60 Est GFR (Non-Af Amer) >60 BUN/Creatinine Ratio 16.3 Glucose 98 Calcium 8.3 L Total Bilirubin 8.0 H AST 98 H ALT 59 Alkaline Phosphatase 164 H Total Protein 7.0 Albumin 2.3 L Globulin 4.7 Albumin/Globulin Ratio 0.5 Preliminary micro results at discharge 08/13/23 10:20 Wound Culture - Preliminary Leg Left Discharge Plan Discharge Disposition: Home, Self-Care Condition: Good Discharge Medications: New doxycycline hyclate 100 mg capsule 100 mg PO BID 14 Days Qty: 28 0RF oxycodone 5 mg capsule 5 mg PO Q8H PRN (Reason: pain) 7 Days Qty: 21 0RF Santyl 250 unit/gram ointment 1 applic topical DAILY Qty: 30 1RF Continued mycophenolate mofetil 500 mg tablet 500 mg PO DAILY folic acid 1 mg tablet 1 mg PO DAILY spironolactone 50 mg tablet 50 mg PO DAILY multivitamin with folic acid [Tab-A-Scott] 400 mcg tablet 1 tab PO DAILY lactulose 10 gram/15 mL (15 mL) solution 30 ml PO BID Rx Instructions: can take more if needed to have 3-4 bm per day potassium chloride [K-Tab] 20 mEq tablet extended release 20 meq PO BID Held sulfamethoxazole-trimethoprim 800-160 mg tablet 1 tab PO .every 3 days Hold Instructions: Resume on 08/21/23. resume once oral doxycycline is completeed Rx Instructions: mondays, and saturdays Activity: increase activity as tolerated Diet: advance to your usual diet Forms: Portal Instructions Referrals: Vlad Paris DPM [Physician] - Follow Up Appointments: @ 10:30am with Dr. Paris [facility], [address] [place] [address] , [place] [phone] F/u PCP in one week
[2023-08-14] MEDS: COLLAGENASE CLOSTRIDIUM HIST. 250 UNITS/GM 30 GRAM TUBE 1 APPLIC TOPICAL (14:07)
== END 2023-08-14 14:16 | disposition home or self-care (01) ==
LOC: ER 14:48 → MS 15:06
PROVIDERS: Physician Assistant; Podiatrist Foot & Ankle Surgery; Admitting Provider Internal Medicine; Emergency Provider Emergency Medicine; PCP Radiology Diagnostic Radiology; Visit Provider Nurse Practitioner
PROC: (CPT 1470; principal; 2023-08-13 08:30)
DX: L02.416 Cutaneous abscess of left lower limb (principal); K70.30 Alcoholic cirrhosis of liver without ascites; E80.6 Other disorders of bilirubin metabolism; D84.9 Immunodeficiency, unspecified; I80.01 Phlebitis and thrombophlebitis of superficial vessels of right lower extremity; M71.072 Abscess of bursa, left ankle and foot; D59.11 Warm autoimmune hemolytic anemia; Z87.891 Personal history of nicotine dependence; Z79.899 Other long term (current) drug therapy; B96.1 Klebsiella pneumoniae [K. pneumoniae] as the cause of diseases classified elsewhere
CPT/HCPCS: 27603; 10061; 36415; 76882; 80053; 82948; 83605; 85025; 85610; 85652; 86140; 87040; 87070; 87150; 87186; 87205; 93971; 96365; 96366; 96367; 96375; 96376; 99285; 99999; A6213; G0378; G0463; J2704

== ENCOUNTER 2023-08-12 17:00 | Outpatient (REF) | payer OTHER, SELFPAY | END 2023-08-12 17:01 | disposition home or self-care (01) | LOC: LAB 17:00 | PROVIDERS: PCP Radiology Diagnostic Radiology; Visit Provider Podiatrist Foot & Ankle Surgery | DX: L02.416 Cutaneous abscess of left lower limb (principal) | CPT/HCPCS: 87070; 87150; 87186; 87205 ==

== ENCOUNTER 2023-08-21 10:31 | Outpatient (OUT) | payer OTHER, SELFPAY | END 2023-08-21 10:32 | disposition home or self-care (01) | LOC: WC 10:33 | PROVIDERS: PCP Radiology Diagnostic Radiology; Visit Provider Podiatrist Foot & Ankle Surgery | DX: L97.912 Non-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 fat layer exposed (principal); T81.89XA Other complications of procedures, not elsewhere classified, initial encounter | CPT/HCPCS: A6213; G0463 ==

== ENCOUNTER 2023-09-04 11:31 | Outpatient (OUT) | payer OTHER, SELFPAY | END 2023-09-04 11:32 | disposition home or self-care (01) | LOC: WC 11:31 | PROVIDERS: PCP Radiology Diagnostic Radiology; Visit Provider Podiatrist Foot & Ankle Surgery | DX: L97.912 Non-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 fat layer exposed (principal); M71.072 Abscess of bursa, left ankle and foot; T81.89XA Other complications of procedures, not elsewhere classified, initial encounter | CPT/HCPCS: G0463 ==

== ENCOUNTER 2023-09-18 11:43 | Outpatient (OUT) | payer OTHER, SELFPAY ==
--- OUTSIDE RECORDS SUMMARY | 2023-09-18 11:50 | XMS_ITS | CCD ---
Author Name Unknown Address [address] [place] [address] Organization [facility] Care Team Providers Care Parts Identification Technician Name Role Phone Link, Colby Nicholson Primary Care Physician Unavailable Primary Care Provider Unavailabl e Unavailable Primary Care Provider Unavailabl e Unavailable Primary Care Provider Unavailabl Theo Fernandez MD Primary Care Provider Abbey Alvarez MD Unavailable Maria C Day Unavailable [phone] Theo Burks MD Primary Care Provider Abbey Alvarez MD Unavailable Gricelda SILVESTRE, Maria C Unavailable [phone] Shamar MULTANI, Marcello Unavailable Maria C Day Unavailable THEO BURKS Primary Care Physician Unavaila ble NONE, XXXX Primary Care Physician Unavailab Jarrod Nettles Unavailable Lisa Lopez Primary Care Physician [phone] CLAIRE JOHNSON Attending UnavailCLAIRE Flores Admitting Unavailabl [...] Admitting Unavailable PARVIZ BURKSHERINE Primary Care Unavailable Lisa Lopez Admitting Unavailable Lisa Lopez Attending Unavailable Lisa Lopez Attending Unavailable Lisa Lopez Attending Unavailable MouranyTeddy Attending Unavailable Mourany, Teddy Rodarte Attending Unavailable Mourany, Teddy Rodarte Attending Unavailable Mourany, Teddy Rodarte Attending Unavailable REFERRAL, SELF Referring Unavailable Coretta, Teddy Rodarte Attending Unavailable Lisa Lopez Attending Unavailable Mourany, Teddy Rodarte Attending Unavailable Mourany, Teddy Rodarte Attending Unavailable Mourany, Teddy Rodarte Attending Unavailable Coretta, Teddy Rodarte Attending Unavailable Brent Sanches Attending Unavailable Martin Reese Attending Unavailable Teddy Luna Attending Unavailable Lisa Lopez Referring Unavailable Sarmini, Martin Taleduar Attending Unavaila ble MoTeddy abad Attending Unavailable Coretta, Teddy Rodarte Attending Unavailable Coretta, Teddy Rodarte Attending Unavailable Coretta, Teddy Rodarte Attending Unavailable Coretta, Teddy Rodarte Attending Unavailable Coretta, Teddy Rodarte Attending Unavailable Coretta, Teddy Rodarte Attending Unavailable Coretta, Teddy Rodarte Attending Unavailable Lisa Lopez Referring Unavailable Lisa Lopez Attending Unavailable Coretta, Teddy Rodarte Attending Unavailable Teddy Hitchcock Referring Unavailable Teddy Hitchcock Admitting Unavailable Sarmini, Martin Talal Admitting Unavaila ble Sarmini, Martin Talal Attending Unavaila ble Sarmini, Martin Talal Referring Unavaila ble Allergies Allergy Classification Reported Allergen(s) Allergy Type Date of Onset Reaction(s) Facility (20 sources) Amoxicillin; Translations: [amoxicillin] Drug Allergy 8 Unknown (qualifier value) [facility] (20 sources) Penicillin; Translations: [penicillin] Drug Allergy unknown [facility] (1 source) Substance with penicillin structure and antibacterial mechanism of action (substance) Drug allergy Unknown ZUCHEM Other Medications Current Medications Medication Drug Class(es) [...] day(s), # 28 cap(s), Refills(s) 0, Pharmacy: [facility] ([facility] #[id number], 170, cm, 02/18/23 7:51:00 EDT, Height/Length Dosing, 77, kg, 02/18/23 7:51:00 EDT, Weight Dosing Start Date: 02/18/23 Stop Date: 02/25/23 Status: Ordered Start: 02-17-2022 take 2 capsules by m out four times daily clindamycin 150 mg Cap 300 mg = 2 cap(s), Oral, QID, # 56 cap(s), Refills(s) 0, Pharmacy: [facility] ([id number], 170.2, cm, 02/17/22 12:34:00 EDT, [...] 0 Start Date: 07/24/23 Status: Ordered Start: 01-08-2022 End: 01-15-2022 take 1 mg [...] Refills(s) 0 Start Date: 07/24/23 Status: Ordered gabapentin 300 mg oral capsule (6 sources) Anti-epileptic Agent Start: 07-24-2023 take 1 capsule by mouth twice daily gabapentin 300 mg Cap 300 mg = 1 cap(s), Oral, BID, # 60 cap(s), Refills(s) 0, Pharmacy: [facility] #[id number], 170, cm, 07/24/23 7:59:00 EST, Height/Length Dosing, [...] Refills(s) 0 Start Date: 07/24/23 Status: Ordered hydrOXYzine HCl Active lactulose 667 mg/ml oral solution (20 sources) Osmotic Laxative Start: 07-24-2023 take 20 g by mouth four times daily lactulose 10 g/15 mL Oral Syrup 20 gm = 30 mL, Oral, QID, # 480 mL, Refills(s) 0 Start Date: 07/24/23 Status: Ordered Start: 04-24-2023 End: 08-27-2023 lactulose 10 g/15 mL oral so lution Indications: Iron deficiency anemia, unspecified iron deficiency anemia type , Alcoholic cirrhosis, unspecified whether ascites present (HCC) , Alcoholic cirrhosis of liver without ascites (HCC) take 30 milliliter by mouth four times a day if needed -TITRATE TO 2 TO 3 BOWEL MOVEMENTS/DAY 946 mL 3 08/27/2023 Active Start: 08-14-2022 End: 04-24-2023 lactulose 20 [...] (20 sources) Antiarrhythmic, Amide Local Anesthetic Start: 08-26-2023 lidocaine Top 5% bekah m Patch 1 patch(es), Topical, Daily, 30 patch(es), Refill(s) 0, apply 12 hours on and 12 hours off daily remove patches after 12 hours may substitute for 4 % patches if insurance coverage issue, [facility] #[id number], 170, cm, 08/26/23 9:52:00 EST, Height/Length Dosing, 68.5, kg, 08/26/23 9:52:00 EST, Weight Dosing Start Date: 08/26/23 Status: Ordered Start: 08-26-2023 apply 28.5 g topical ly twice daily lidocaine 3% topical gel See Instructions, 28.5 gm, Refill(s) 0, Topical BID apply a thin film to the affected areas may substitute for 2 % if this is not available, [facility] #[id number], 170, cm, 08/26/23 9:52:00 EST, Height/Length Dosing, 68.5, kg, 08/26/23 9:52:00 EST, Weight Dosing Start Date: 08/26/23 Status: Ordered Start: 12-15-2022 End: 03-06-2023 apply 1 dose transdermal route every twenty-four hours lidocaine (LIDODERM) 5 % patch Indications: Rib pain Place 1 Patch on the skin every 24 hours. 10 Patch 3 03/06/2023 Active Milk thistle extract (6 sources) Start: 07-24-2023 take 1000 mg by mouth once daily Milk Thistle 1,000 mg, Oral, Daily, Refill(s) 0 Start Date: 07/24/23 Status: Ordered Misc DME Prescription (20 sources) Start: 07-24-2023 Misc DME Presc ription See Instructions, LiquidIV hydration Start Date: 07/24/23 Status: Ordered Start: 07-24-2023 Misc DME Presc ription See Instructions, Collagen Matrix with ORC and Silver dressing Start Date: 07/24/23 Status: Ordered Start: 07-24-2023 Misc DME Presc ription See Instructions, [place] SAP Dressing 4 x 4 dressing Start Date: 07/24/23 Status: Ordered Start: 07-24-2023 Misc DME Presc ription See Instructions, Muscle & joint balm CBD 880mg Start Date: 07/24/23 Status: Ordered Misc Prescription (6 sources) Start: 07-24-2023 Misc Prescription Bee Venom, Daily Start Date: 07/24/23 Status: Ordered Multiple Vitamin (Tab-A-Scott) TABS (4 sources) Start: 07-13-2023 take 1 tablet by [...] 0 Start Date: 07/24/23 Status: Ordered Start: 02-11-2022 End: 03-13-2022 take 2 tablets [...] day(s), # 15 cap(s), Refills(s) 0, Pharmacy: [facility] #[id number], 170, cm, 02/18/23 7:51:00 EDT, Height/Length Dosing, [...] Thursday. 12 Tablet 3 07/23/2023 Active Start: 07-23-2023 take 1 tablet by patricia [...] day(s), 28 tab(s), Refill(s) 0, [facility] #[id number], 170, cm, 03/22/23 20:14:00 EDT, Height/Length Dosing, [...] Discontinued (Reorder (*won't e-cancel)) Tab-A-Scott oral tablet (6 sources) Start: 07-24-2023 take 1 tablet by [...] Until Discontinued Zofran ODT 4 mg Tab-Dis (20 sources) Start: 03-22-2023 take 1 tablet by mouth every eight hours as needed for nausea Zofran ODT 4 mg Tab-Dis 4 mg = 1 tab(s), Oral, q8hr, PRN Nausea/Vomiting, # 20 tab(s), Refills(s) 0, Pharmacy: [facility] #[id number], 170, cm, 03/22/23 20:14:00 EDT, Height/Length Dosing, [...] 1 Tablet, Oral, ONCE, 1 dose, On Thu01/16/22 at 0030 amoxicillin 875 mg / clavulanate [...] 05/06/2022 Discontinued (Therapy completed) 168 hr cloNIDine 0.46684 mg/hr transdermal system (1 source) Central alpha-2 [...] 01-09-2022 2 mg, Oral, EVERY 2 HOURS SD N, Starting on Thu01/08/22 at 1755, Until Thu01/09/22 at 1346, Anxiety, CIWA 9-12 and SBP greater than 165 mmHg and/or HR greater than 100 beats per minute, or CIWA 13 and above 50 ml magnesium sulfate 40 mg/ml injection (1 source) Start: 01-10-2022 End: 01-10-2022 2 g (2,000 mg), Intravenous, ONCE, 1 [...] tablet by mouth twice daily Potassium Chloride (Bvu-Vkja-Pyt M20) 20 mEq oral tablet, extended release 20 mEq = 1 tab(s), Oral, BID, # 30 tab(s), Refills(s) 3, Pharmacy: [facility] #[id number], 170, cm, 07/24/23 7:59:00 EST, Height/Length Dosing, 73.5, kg, 07/24/23 7:59:00 EST, Weight Dosing Start Date: 07/24/23 Status: Ordered Start: 11-14-2022 take 1 tablet by aptricia once daily potassium chloride SA (K-DUR) 20 MEQ controlled release tablet Indications: Hypokalemia Take 1 Tablet by mouth daily. 10 Tablet 0 11/14/2022 Active Start: 01-15-2022 End: 01-15-2022 take 1 dose by mouth once 40 mEq, Oral, ONCE, 1 dose, On 01/15/22 at 0600 Start: 01-13-2022 End: 01-13-2022 40 mEq, G Tube, ONCE, 1 dose , On 01/13/22 at 0500 Start: 01-12-2022 End: 01-13-2022 take 1 dose by mouth once 40 mEq, Oral, ONCE, 1 dose, On 01/13/22 at 0700 Start: 01-12-2022 End: 01-12-2022 40 [...] 15 mL, Oral, DAILY, First dose on Thu01/09/22 at 1400, Until Discontinued Problems Active Problems Problem Classification Problem Date Documented Date Episodic/Chronic Alcohol-related disorders (20 sources) Alcohol abuse; Translations: [Alcohol abuse, uncomplicated] Onset: 01-07-2022 Resolved: 01-12-2023 Chronic Bacterial infection; unspecified site (1 source) Bacterial infection due to Klebsiella pneumoniae; Translations: [Other bacterial infections of unspecified site] Episodic Chronic ulcer of skin (2 sources) 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; Translations: [Chronic ulcer of skin of lower leg] Onset: 08-26-2023 Chronic Coagulation and hemorrhagic disorders (20 sources) Thrombocytopenic disorder; Translations: [Thrombocytopenia, unspecified] Onset: 01-07-2022 Chronic Deficiency and other anemia (20 sources) Warm autoimmune hemolytic anemia; 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 Deficiency and other anemia (20 sources) Hemolytic anemia; Translations: [Hereditary hemolytic anemia, unspecified] 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-2022 Chronic Deficiency and other anemia (1 source) Hereditary hemolytic anemia; Translations: [Hereditary hemolytic anemia, unspecified] Onset: 08-26-2023 Chronic Deficiency and other anemia (8 sources) Anemia; Translations: [Anemia, unspecified] Onset: 01-07-2022 Episodic Deficiency and other anemia (8 sources) Iron deficiency anemia; Translations: [Iron deficiency anemia, unspecified] Episodic Deficiency and other anemia (2 sources) Deficiency and other anemia; 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] 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-2022 Diabetes mellitus without complication (7 sources) Impaired fasting glycemia; Translations: [Impaired fasting glucose] Onset: 07-24-2023 Episodic E Codes: Natural/environment (1 source) Bite of nonvenomous arthropod; Translations: [Bitten or stung by nonvenomous insect and other nonvenomous arthropods, initial encounter] Onset: 06-19-2023 Episodic Fluid and electrolyte disorders (10 sources) Acidosis; Translations: [Acidosis] Onset: 01-07-2022 Episodic [...] aftercare (3 sources) Antibiotic prophylaxis indicated; Translations: [halfway (current) use of antibiotics] Episodic Other aftercare (4 sources) Drug therapy status; Translations: [Other buttermaker (current) drug therapy] Episodic Other aftercare (1 source) Other retirement (current) drug therapy; Translations: [Other buttermaker (current) drug therapy] Onset: 04-21-2023 Episodic Other aftercare (1 source) buttermaker (current) use of antibiotics; Translations: [buttermaker (current) use of antibiotics] Onset: 04-21-2023 Episodic Other aftercare (1 source) Long-term current use of drug therapy; Translations: [Other retirement (current) drug therapy] Onset: 07-24-2023 Episodic Other circulatory disease (1 source) Elevated blood-pressure reading without diagnosis of hypertension; Translations: [Elevated blood-pressure reading, without diagnosis of hypertension] Onset: 07-24-2023 Episodic Other circulatory disease (6 sources) Elevated blood pressure 07-24-2023 Episodic Other [...] Onset: 02-12-2022 02-12-2022 Chronic Other hematologic conditions (2 sources) Abnormal presence of albumin; Translations: [Abnormality of [...] coma] Onset: 01-07-2022 Episodic Other liver diseases (7 sources) Elevated liver enzymes level; Translations: [Abnormal levels of other serum enzymes] Episodic Other liver diseases (2 sources) Enzyme level - finding; Translations: [Abnormal levels [...] Translations: [Localized edema] Episodic Residual codes; unclassified (2 sources) Tobacco user; Translations: [Tobacco use] Onset: 07-24-2023 Episodic Residual codes; unclassified (3 sources) Current drinker; Translations: [Alcohol use, unspecified, in remission] Onset: 07-24-2023 Episodic Residual codes; unclassified (6 sources) User of smokeless tobacco 07-24-2023 Episodic Residual codes; unclassified (2 sources) Body mass index 20-24 - normal; Translations: [Body mass index (BMI) 23.0-23.9, adult] Onset: 08-26-2023 Episodic Skin and subcutaneous tissue infections (19 sources) Cellulitis of right lower limb; Translations: [...] thigh, initial encounter] Onset: 06-19-2023 Episodic Unclassified (6 sources) Patient encounter status 07-24-2023 Unclassified (6 sources) Serum albumin below reference range 07-24-2023 Unclassified (3 sources) Body mass index 20-24 - normal 08-26-2023 Unclassified (3 sources) Venous ulcer of lower limb 08-26-2023 Urinary tract infections (4 sources) Urinary tract infectious disease; Translations: [Urinary tract infection, site not specified] Episodic Varicose veins of lower extremity (1 source) Varicose veins of right lower limb; Translations: [Varicose veins of right lower extremity with ulcer of unspecified site] Onset: 08-26-2023 Episodic Past or Other Problems Problem Classification [...] Name Value Interpretation Reference Range Facil ity Transfer Inon 09-09-2023 Transfer In [id number] #1.00TIFF Normal [facility] US Liveron 09-05-2023 US Liver Exam Date/Time: 09/03/2023 09:09 EST Reason for Exam: K70.30;Elevated LFTs Report IMPRESSION: CHOLELITHIASIS. ASCITES. CLINICAL HISTORY: Elevated LFTs, K70.30 COMPARISON: NONE. FINDINGS: Study limited secondary to bowel gas. Liver normal in size, shape, and echogenicity. No intrahepatic, and no extrahepatic ductal dilatation. Common duct measures 4 mm. Gallbladder contains multiple mobile shadowing intraluminal echogenic foci. No wall thickening or pericholecystic fluid. Pancreas obscured by overlying bowel gas. Small amount of free fluid identified within perihepatic space. Ordering Provider: Mario Evans FINAL REPORT Dictated: 09/05/2023 4:57 pm Gerson Barrera MD Signed (Electronic Signature): 09/05/2023 4:57 pm Signed by: Gerson Barrera MD Transcribed by: JUNIOR Technologist: TANIKA [facility] Consent for Procedure/Surger yon 09-03-2023 Consent for Procedure/Surgery [id number]#1.00TIFF [facility] Consent for Treatmenton 08-08 Consent for Treatment [id number] #1.00TIFF [facility] Ambulatory Visit Summaryon 1 11-02-2022 Ambulatory Visit Summary WILL ANDERSON :1985 Visit Date:09/01/2023 Ambulatory Visit Instructions Your Diagnosis Alcohol use disorder in remission Elevated liver enzymes Liver cirrhosis, alcoholic Hemolytic anemia Smokeless tobacco use BMI 23.0-23.9, adult Your Care Team Attending Physician - Mario Evans MD Primary Care Physician - Lisa Padilla Referring Physician - Lisa Padilla This Is Your Medications List Misc Prescription Misc Prescription (Misc DME Prescription) Misc Prescription (Misc DME Prescription) Misc Prescription (Misc DME Prescription) Misc Prescription (Misc DME Prescription) folic acid (folic acid 1 mg Tab) furosemide (furosemide 20 mg Tab) gabapentin (gabapentin 300 mg Cap) hydrOXYzine (hydrOXYzine pamoate 25 mg Cap) lactulose (lactulose 10 g/15 mL Oral Syrup) lidocaine topical (lidocaine 3% topical gel) lidocaine topical (lidocaine Top 5% film Patch) milk thistle (Milk Thistle) multivitamin (Tab-A-Scott oral tablet) mycophenolate mofetil (mycophenolate mofetil 500 mg oral tablet) ondansetron (Zofran ODT 4 mg Tab-Dis) potassium chloride (Potassium Chloride (Ynw-Ggve-Gdo M20) 20 mEq oral tablet, extended release) spironolactone (spironolactone 50 mg Tab) sulfamethoxazole-tri methoprim Procedures Performed I and D, Jaw. Discharge Vitals Heart Rate (Peripheral) 80 Respiratory Rate 18 Blood Pressure 140/80 Height 67 in Height 170 cm Weight 151.8 lb Weight 69 kg BMI 23.88 What to do next Scheduled Follow-Up Appointments 2022 9:00 AM EST With: Where: [facility] Sound Thursday 9:00 AM EST With: Lisa Padilla Where: [facility] Primary Care Normal [facility] Gastroenterology Office/Clin ic Noteon 09-01-2023 Gastroenterology Office/Clinic Note Chief Complaint elevated liver enzymes HPI Staff Patient is a 37 year old male who was referred by John for elevated LFT's and INR, thrombocytopenia, anemia and heavy ETOH use. Last drink 01/05/22. Currently uses chew tobacco - former cigarette smoker. Denies recent imaging. Denies previous EGD. Saw Hem/Oncology 04/22/23 @ [facility]. Labs 04/21/23 @ [facility]: Alk phos: (H)284 AST: 70 ALT: (H) 38 T. Bili (H) 7.5 Creatinine: (L) 0.52 RBC (L) 3.31 Hgb (L) 12.1 Hct (L) 35.4 RDW (H) 15.7 Platelet (L) 110 CT abd 01/07/22 @ [facility]: IMPRESSION: MILD TO MODERATE NONSPECIFIC BODY WALL EDEMA AND/OR CELLULITIS OF THE ANTERIOR CHEST AND INCOMPLETELY VISUALIZED LEFT UPPER EXTREMITY. MODERATE HEPATIC CIRRHOSIS AND STEATOSIS WITH TRACE ASCITES IN THE PELVIS. SLUDGE AND PROBABLY SMALL STONES WITHIN A MILD TO MODERATELY DILATED GALLBLADDER, WITHOUT OTHER CT FINDINGS TO SUGGEST ACUTE CHOLECYSTITIS. MILD INFLAMMATION SUPERIOR TO THE PANCREAS, WHICH MAY BE PANCREATITIS OR REACTIVE. MODERATE NONSPECIFIC WALL THICKENING OF THE URINARY BLADDER, WHICH MAY BE CHRONIC OR CYSTITIS. History of Present Illness he quit drinking 3 years ago, before that he was drinking heavily for few years following with vascular surgery for chronic LE ulcers/stasis/ varicose veins, multiple procedures, one more to go, he had h/o cellulitis multiple times No FH of liver disease No drugs No AMS or increased abd girth Review of Systems PHQ Score Initial Depression Screen Score: 0 SCORE Physical Exam Vitals & Measurements HR: 80(Peripheral) RR: 18 BP: 140/80 HT: 67 in HT: 170 cm WT: 69 kg WT: 151.8 lb BMI: 23.88 GEN: milc icterus no asterixis Assessment/Plan 1. Alcohol use disorder in remission (F10.91: Alcohol use, unspecified, in remission) Diagnosed few years ago, was actively drinking, he quit then He had a biopsy done at [facility] in January 2023, he had hepatic venous gradient of 14, pathology report will be obtained I will complete chronic liver disease panel as well - Ascites: Low-sodium diet, on low-dose Lasix and Aldactone 20/50 for lower extremity edema - SBP Prophylaxis: n/a - Varices: Does not remember if he had an EGD before, will get one - Encephalopathy: On lactulose, for elevated ammonia, denies altered mental status in the past, having 2 bowel movements a day, not interested in stopping it for now, will - HCC screening: US due, last one was around January and [facility] report not available - Transplant Status: Obtain MELD labs, if MELD is above 16, refer to transplant center - Nutrition: encourage high protein intake and late night snack as well - Repeat cirrhosis panel every 6 months (CBC, CMP, INR, AFP) Health maintenance: Hep A and Hep B status: Confirm status Uptodate vaccinations per primary care as well 2. Elevated liver enzymes (R74.8: Abnormal levels of other serum enzymes) 3. Liver cirrhosis, alcoholic (K70.30: Alcoholic cirrhosis of liver without ascites) Ordered: Acute Hepatitis A B C Panel Alpha Fetoprotein Tumor Marker [id number] GEOVANNA w/Reflex if POS Antimitochondrial Antibody, Quantitative Bilirubin Direct Ceruloplasmin Comprehensive Metabolic Panel EGD Endoscopy (Hospital Procedure) EGD Endoscopy (Hospital Procedure) Ferritin IgG, Quant. Iron Level PT Smooth Muscle Antibody Screen TIBC Calculated US Liver 4. Hemolytic anemia (D58.9: Hereditary hemolytic anemia, unspecified) 5. Smokeless tobacco use (Z72.0: Tobacco use) 6. BMI 23.0-23.9, adult (Z68.23: Body mass index [BMI] 23.0-23.9, adult) Follow-up No qualifying data available Problem List/Past Medical History Ongoing Abscess of left leg excluding foot Alcohol abuse Alcohol use disorder in remission Anemia BMI 23.0-23.9, adult Cellulitis of leg, right Elevated blood pressure reading Elevated fasting glucose Elevated INR Elevated liver enzymes Hypokalemia Liver cirrhosis, alcoholic Low serum albumin Screening for lipid disorders Smokeless tobacco use Thrombocytopenia Venous ulcer of right leg Historical Denies Heavy alcohol use Procedure/Surgical History I and D, Jaw. Medications folic acid 1 mg Tab, 1 mg= 1 tab(s), Oral, Daily, Not taking furosemide 20 mg Tab, 20 mg= 1 tab(s), Oral, Daily gabapentin 300 mg Cap, 300 mg= 1 cap(s), Oral, BID, Still taking, not as prescribed: Pt says doesn't always work, so he takes it rarely hydrOXYzine pamoate 25 mg Cap, 25 mg= 1 cap(s), Oral, TID, PRN lactulose 10 g/15 mL Oral Syrup, 20 gm= 30 mL, Oral, QID lidocaine 3% topical gel, See Instructions lidocaine Top 5% film Patch, 1 patch(es), Topical, Daily Milk Thistle, 1000 mg, Oral, Daily Misc DME Prescription, See Instructions Misc DME Prescription, See Instructions Misc DME Prescription, See Instructions Misc DME Prescription, See Instructions Misc Prescription, 0, Daily mycophenolate mofetil 500 mg oral tablet, 500 mg= 1 tab(s), Oral (more content not included)... Normal [facility] Comment on above: Result Comment: Elec tronically Signed By: Nathan MULTANI, Mario Xiong\.br\Date and Time Signed: 09/01/23 13:01 EST Family Medicine Office/Clini c Noteon 08-28-2023 Family Medicine Office/Clinic Note Chief Complaint 14 days TCM HPI Staff Reason for Visit: 14 day TCM? Pt comes in for a Hospital f/u for LE abscess/cellulitis on 08/12 after wound clinic was unable to perform I&D in office due to pain. Pt was admitted for IV antibiotics and had I&D performed on 08/13. Pt was kept overnight for continued IV antibiotics due to immunocompromised status. Pt was discharged from [facility] wound care. Pt has to repack his wound daily per wound care. Pt is still with wound care in [place]. Pt would like an Rx 2% lidocaine gel for when he is packing his wound and for managing the pain. Pain: 4-5 Feels Like: achy, sore Better/Worse: Lidocaine gel and rest Wound Care Appointment: Next wk Depression: 0 ROBY: N/A Last Labs done: 08/12/2023, [facility] Covid Vaccine: Yes Flu Vaccine: No History of Present Illness The patient presents for evaluation of multiple medical concerns. Will Anderson is a 37-year-old male who is here for 14-day TCM. He was recently discharged from [facility]. He went there with an abscess, incision, and drainage was performed on the left lower extremity. He has a past medical history significant for liver cirrhosis, which was alcohol induced. He has quit smoking. He has ascites. He is taking mycophenolate, which is an immunosuppressant. He was discharged on doxycycline and is supposed to resume Bactrim preventative. He has been following the wound care clinic out of [place] as well as seeing a vascular surgeon out of [place] due to chronic lower edema and varicosities. He also has anemia, hypokalemia, abnormal liver enzymes and has had notable elevated blood pressure in the past. Today, his blood pressure is at 150/88 mmHg. He had urinalysis last July before seeing a dietitian. He was told that he has a good diet, but he complains of not having enough protein, so now he is trying to get 70 to 90 g of protein every day. He has been buying low sodium lunch meat, reduced salt intake, and eats unsalted nuts, 2 apples, and bananas every day. He did not clarify that his diet is helping with the swelling in his legs, but he complains that his right leg is acting up due to having varicose veins. He states having complications and how the swelling got worse when he was at the hospital. He was laid out for a few days, but there was no swelling. He confirms that he still wears his support stockings and got insoles for his boots, which helped a lot. He was on his feet all day on Thursday and did not sit down until he got home. He returned to work the next Thursday and worked for about 8 hours. He was released on Thursday but did not go to work due to feeling tired and loopy. On Thursday, he worked on his truck while sitting down. Once he got home at night, he had not noticed any swelling. He does not have any issues if he avoids standing and walking. The swelling happens by the end of the day, but the pain is always the worst in the morning. It is a nerve pain, but sometimes it is sore. He would feel relief within 20 minutes when he gets a shower, lidocaine patch and compression socks. He takes oxycodone and 5 mg is his maximum limit. He inquired about lidocaine 2% gel. He has gabapentin, but he does not notice any difference. He changes his leg dressing every other day and uses Santyl. He has a hole in his right leg that he cleans and puts a Band-Aid on. He had a follow-up appointment last week where he confirmed that the hole was getting smaller. He took oxycodone to not feel pain when they had to change the dressing on his leg. He has a couple of pain pills left. He cannot take Tylenol because of his liver. He was given morphine when he was admitted and felt nauseous with Zofran. He takes lactulose every day, occasionally twice a day because oxycodone makes him constipated . He has been sleeping better and has a lot of energy, but he is not as strong as he used to be, that is why he is going to start doing arm exercises. Supplemental Information He watches what he eats. He will not take potassium if he eats a lot of foods with potassium. He does not need a refill on potassium. He is still taking spironolactone, multivitamin, lactulose, and mycophenolate. He has another follow-up appointment in 2 weeks He is allergic to MORPHINE. PENICILLIN, AMOXICILLIN He is still taking spironolactone, multivitamin, lactulose, and mycophenolate. Review of Systems PHQ Score Initial Depression Screen Score: 0 SCORE Physical Exam Vitals & Measurements HR: 71(Peripheral) RR: 18 BP: 150/88 SpO2: 100% HT: 67 in HT: 170 cm WT: 68.5 kg WT: 150.7 lb BMI: 23.7 General: Alert, no acute distress, well appearing, pleasant Skin: Warm, dry, intact. Notable jaundice. Dressings noted bilateral calf on the left medial. Lidoderm patch and a dressing with some shadowing of some serosanguineous fluid. But not saturated. No evidence of surrounding erythema, edema, OR warmth, or tenderness to palpation. Head: No trauma, normocephalic Neck: Trachea midline, no adenopathy, (more content not included)... Normal [facility] Comment on above: Result Comment: Elec tronically Signed By: Lisa Padilla\.br\Date and Time Signed: 08/28/23 19:38 EST\.br\Electronically Co-Signed By: Amy Denis\.br\Date and Time Co-Signed: 08/26/23 18:37 EST Patient Educationon 08-26-20 Patient Education Stasis Dermatitis Stasis dermatitis is a long-term (chronic) skin condition that happens when veins can no longer pump blood back to the heart (poor circulation). This condition causes a red or brown scaly rash or sores (ulcers) from the pooling of blood (stasis). This condition usually affects the lower legs. It may affect one leg or both legs. Without treatment, severe stasis dermatitis can lead to other skin conditions and infections. What are the causes? This condition is caused by poor circulation. What increases the risk? You are more likely to develop this condition if: ? You are not very active. ? You stand for long periods of time. ? You have veins that have become enlarged and twisted (varicose veins). ? You have leg veins that are not strong enough to send blood back to the heart (venous insufficiency). ? You have had a blood clot. ? You have been many times. ? You have had vein surgery. ? You are obese. ? You have heart or kidney failure. ? You are 50 years of age or older. ? You have had injuries to your legs in the past. What are the signs or symptoms? Common early symptoms of this condition include: ? Itchiness in one or both of your legs. ? Swelling in your ankle or leg. This might get better overnight but be worse again during the day. ? Skin that looks thin on your ankle and leg. ? Red or brown harris that develop slowly. ? Skin that is dry, cracked, or easily irritated. ? Red, swollen skin that is sore or has a burning feeling. ? An achy or heavy feeling after you walk or stand for long periods of time. ? Pain. Later and more severe symptoms of this condition include: ? Skin that looks shiny. ? Small, open sores (ulcers). These are often red or purple and leak fluid. ? Skin that feels hard. ? Severe itching. ? A change in the shape or color of your lower legs. ? Severe pain. ? Difficulty walking. How is this diagnosed? This condition may be diagnosed based on: ? Your symptoms and medical history. ? A physical exam. You may also have tests, including: ? Blood tests. ? Imaging tests to check blood flow (Doppler ultrasound). ? Allergy tests. You may need to see a health care provider who specializes in skin diseases (hand ii cutter). How is this treated? This condition may be treated with: ? Compression stockings or an elastic wrap to improve circulation. ? Medicines, such as: ? Corticosteroid creams and ointments. ? Non-corticosteroid medicines applied to the skin (topical). ? Medicine to reduce swelling in the legs (diuretics). ? Antibiotics. ? Medicine to relieve itching (antihistamines). ? A bandage (dressing). ? A wrap that contains zinc and gelatin (Unna boot). Follow these instructions at home: Skin care ? Moisturize your skin as told by your health care provider. Do not use moisturizers with fragrance. This can irritate your skin. ? Apply a cool, wet cloth (cool compress) to the affected areas. ? Do not scratch your skin. ? Do not rub your skin dry after a bath or shower. Gently pat your skin dry. ? Do not use scented soaps, detergents, or perfumes. Medicines ? Take or use ejum-cnu-ujcvawk and prescription medicines only as told by your health care provider. ? If you were prescribed an antibiotic medicine, take or use it as told by your health care provider. Do not stop taking or using the antibiotic even if your condition improves. Activity ? Walk as told by your health care provider. Walking increases blood flow. ? Do calf and ankle exercises throughout the day as told by your health care provider. This will help increase blood flow. ? Raise (elevate) your legs above the level of your heart when you are sitting or lying down. Lifestyle ? Work with your health care provider to lose weight, if needed. ? Do not cross your legs when you sit. ? Do not stand or sit in one position for long periods of time. ? Wear comfortable, loose-fitting clothing. Circulation in your legs will be worse if you wear tight pants, belts, and waistbands. ? Do not use any products that contain nicotine or tobacco, such as cigarettes, e-cigarettes, and chewing tobacco. If you need help quitting, ask your health care provider. General instructions ? If you were asked to use one of the following to help with your condition, follow instructions from your health care provider on how to: ? Remove and change any dressing. ? Wear compression stockings. These stockings help to prevent blood clots and reduce swelling in your legs. ? Wear the Unna boot. ? Keep all follow-up visits as told by your health care provider. This is important. Contact a health care provider if: ? Your condition does not improve with treatment. ? Your condition gets worse. ? You have signs of infection in the affected area. Watch for: ? Swelling. ? Tenderness. ? Redness. ? Soreness. ? (more content not included)... Normal [facility] Operative Reporton 3 Operative Report [id number] #1.00TIFF Normal [facility] Nursing Assessment - Woundon 08-14-2023 Nursing Assessment - Wound [id number] 7#1.00TIFF [facility] Multi-Wound Charton 08-10-20 Multi-Wound Chart [id number] 7#2.00TIFF [facility] Nursing Assessment - Woundon 08-10-2023 Nursing Assessment - Wound [id number] 7#1.00TIFF [facility] Nursing Note - Woundon 08-10 Nursing Note - Wound [id number] 1 [id number] 6#1.00TIFF [facility] Physician Orderon 08-10-2023 Physician Order [id number] 5#1.00TIFF [facility] Physician Order [id number] 3#1.00TIFF [facility] Procedure - Woundon 08-10-20 Procedure - Wound [id number] 1#1.00TIFF [facility] Progress Note - Woundon Progress Note - Wound [id number] 31 [id number] 9#1.00TIFF [facility] Consent for Treatmenton 07-10 Consent for Treatment [id number] #1.00TIFF [facility] Transfer Inon 08-06-2023 Transfer In [id number] #1.00TIFF [facility] Transfer In [id number] #1.00TIFF [facility] Transfer In [id number]# 1.00TIFF [facility] Consent for Treatmenton 07-09 Consent for Treatment [id number] #1.00TIFF [facility] Ambulatory Visit Summaryon 09-26-2022 Ambulatory Visit Summary WILL ANDERSON :1985 Visit [...] 4 mg Tab-Dis) potassium chloride (Potassium Chloride (Zhm-Rxuu-Bss M20) 20 mEq oral tablet, extended release) spironolactone (spironolactone 50 mg Tab) sulfamethoxazole-tri methoprim [Image Removed: STOP]Stop taking these medications clindamycin (clindamycin 150 mg Cap) Procedures Performed Jaw. What to do next Scheduled Follow-Up Appointments Thursday 10:15 AM EST With: Kartik WALDEN, MARIANNN, LD, Leslie Portillo Where: Dietary 2022 9:30 AM EST With: Teddy Hitchcock MD Where: [facility] Thursday 7:20 AM EST With: Lisa Padilla Where: [facility] Primary Care Invalid Interpretation Code Thrombocytopenia [facility] Physician Orderon 07-27-2023 Physician Order [id number] #1.00TIFF Normal [facility] Ambulatory Visit Summaryon 1 09-23-2022 Ambulatory [...] - Lisa Padilla Primary Care Physician - John ALBERTS, Lisa Zuniga This Is Your Medications List Misc Prescription [...] 4 mg Tab-Dis) potassium chloride (Potassium Chloride (Qyf-Axox-Bjc M20) 20 mEq oral tablet, extended release) spironolactone (spironolactone 50 mg Tab) sulfamethoxazole-tri methoprim [Image Removed: STOP]Stop taking these medications clindamycin (clindamycin 150 mg Cap) Procedures Performed Jaw. Discharge Vitals Heart Rate (Peripheral) 79 Respiratory Rate 16 Blood Pressure 132/76 Height 170 cm Height 67 in Weight 73.5 kg Weight 161.7 lb BMI 25.43 What to do next Scheduled Follow-Up Appointments 2022 9:30 AM EST With: Coretta MULTANI, Teddy Rodarte Where: [facility] Medications What How Much When Why Instructions New potassium chloride (Potassium Chloride (Ivi-Eaot-Tiu M20) 20 mEq oral tablet, extended release) 1 Tablets By Mouth 2 times a day Refills: 3 Pickup at [id number] Changed gabapentin (gabapentin 300 mg Cap) 1 Capsules By Mouth 2 times a day Leg pain Pickup at [id number] Changed ondansetron (Zofran ODT 4 mg Tab-Dis) [...] Misc Prescription (Misc DME Prescription) See instructions [place] SAP Dressing 4 x 4 dressing Unchanged [...] 1 Tablets By Mouth Every day Unchanged sulfamethoxazole-tri methoprim 80 Milligram By Mouth Take on Thursday, and Thursday Pharmacy Information [facility] #[id number]: [address] [place], [place] [id number] [phone] What How Much When Comments Stop Taking [...] you for choosing us for your care. [facility] Auth for Release of Medical Recordson 07-24-2023 Auth for Release of Medical Records [id number]# 1.00TIFF [facility] Auth for Release of Medical Records .[id number] #1.00TIFF [facility] Auth for Release of Medical Records [id number]# 1.00TIFF [facility] CHEMISTRYOrdered By: Huber Jha on 07-24-2023 Albumin DL <= 20 mg/L (U) [Mass/Vol] microgram/mL Normal 0.0 - 19.0 mcg/mL [facility] Albumin Elph (U) [Mass fraction] mg/dL Invalid Interpretation Code [facility] Comment on above: Interpretive Data: T he reference range and other method performance specifications have not been established for this test; results should be integrated into the clinical context for interpretation. Creatinine (U) [Mass/Vol] 22.5 mg/dL Invalid Interpretation Code [facility] Comment on above: Interpretive Data: T he reference range and other method performance specifications have not been established for this test; results should be integrated into the clinical context for interpretation. U Prot/Creat Ratio [facility] Invalid Interpretation Code 0.00 - 200.00 [facility] Family Medicine Office/Clini c Noteon 07-24-2023 Family [...] be in one place except for his Vamp Seamer, DR Tanvir BLACK. Pt is currently with wound care at [facility]. Pt is also seeing a vascular specialist in [place]. Depression: Baseline PHQ9: 2 ROBY: Baseline: 5 [...] C -biopsy in January of liver - [facility] edema/ swelling- lactulose/ lasix Former Chronic alcohol use, 3-5 times per week Daily chewing tobacco use Anemia- follows with hematology depression / anxiety- has been on meds- did not go well today PHQ9 2 ROBY: 5 right leg- continued drainage- wound care- follows with Dr Hitchcock- 2 rounds of antibiotics, swelling makes it works. started gabapentin 100 mg BID for leg pain. [place]- varicose veins- vascular- next week [facility]- [...] labs reviewed - ordered additional labs today colonoscopy/cologuar d (45-75yo): not due yet PSA (45-70yo): not due yet Specialists: Insurance Agency Sales Manager: ? Dentist: ? LIVER- [facility] wound care- Dr Hitchcock Vascular- [place] Vamp Seamer, DR Tanvir nathan Physical Exam Vitals & [...] induced, arsh (more content not included)... Normal [facility] Comment on above: Result Comment: Elec tronically Signed By: Lisa Padilla\.chidi\Date and Time Signed: 07/24/23 09:18 EST Medication Consenton 023 Medication Consent [id number] #1.00TIFF Normal [facility] Patient Educationon 07-24-20 Patient Education Gastroenterology Cirrhosis [...] provider before taking any new medicines, including lduw-xcy-dkhkjqz medicines such as NSAIDs. ? Rest as needed. ? Eat a well-balanced diet. ? Limit your salt or water intake, if your health care provider asks you to do this. ? Do not drink alcohol. This is especially important if you routinely take acetaminophen. ? Keep all f (more content not included)... Normal [facility] Physician Referralon 023 Physician Referral [id number] #1.00TIFF Normal [facility] U Microalbon 07-24-2023 Albumin DL <= 20 mg/L (U) [Mass/Vol] mg/dL Normal 0.0-19.0 [facility] Comment on above: Performed By: #### 1 [id number], [id number] ####[facility] [address] [place] [address] U Protein/Creat Ratioon 07-08 Creatinine (U) [Mass/Vol] 22.5 mg/dL Invalid Interpretation Code [facility] Comment on above: Result Comment: The reference range and other method performance specifications have not been established for this test; results should be integrated into the clinical context for interpretation. Performed By: #### 1 [id number], [id number] ####[facility] [address] [place] [address] U Prot/Creat Ratio [facility] Invalid Interpretation Code .00-200.00 [facility] Comment on above: Performed By: #### 1 [id number], [id number] ####[facility] [address] [place] [address] Albumin Elph (U) [Mass fraction] <6.0 Invalid Interpretation Code [facility] Comment on above: Result Comment: The reference range and other method performance specifications have not been established for this test; results should be integrated into the clinical context for interpretation. Performed By: #### 1 [id number], [id number] ####[facility] [address] [place] [address] Consent for Treatmenton 07-08 Consent for Treatment [id number] #1.00TIFF Normal [facility] Multi-Wound Charton 07-23-20 Multi-Wound Chart [id number] 0#1.00TIFF [facility] Nursing Assessment - Woundon 07-23-2023 Nursing Assessment - Wound [id number] 1#1.00TIFF [facility] Nursing Note - Woundon 07-23 Nursing Note - Wound [id number] 1 [id number] 8#1.00TIFF [facility] Physician Orderon 07-23-2023 Physician Order [id number] 2#1.00TIFF [facility] Procedure - Woundon 07-23-20 Procedure - Wound [id number] 1#1.00TIFF [facility] Progress Note - Woundon 07-08 Progress Note - Wound [id number] 31 [id number] 2#1.00TIFF [facility] Nursing Assessment - Woundon 07-20-2023 Nursing Assessment - Wound [id number] 5#2.00TIFF [facility] Nursing Note - Woundon 07-20 Nursing Note - Wound [id number] 1 [id number] 4#2.00TIFF [facility] Progress Note - Woundon 07-08 Progress Note - Wound [id number] 1#3.00TIFF [facility] Physician Orderon 07-17-2023 Physician Order [id number] 0#1.00TIFF [facility] Procedure - Woundon 07-17-20 Procedure - Wound [id number] 0#1.00TIFF [facility] Consent for Procedure/Surger yon 07-16-2023 Consent for Procedure/Surgery [id number] #1.00TIFF [facility] Consent for Treatmenton Consent for Treatment [id number] #1.00TIFF [facility] Multi-Wound Charton 07-16-20 Multi-Wound Chart [id number] 9#1.00TIFF [facility] Prescriptions/Work Noteson 09-15-2022 Prescriptions/Work Notes [id number] #1.00TIFF [facility] Nursing Note - Woundon 07-03 Nursing Note - Wound [id number] 1 [id number] 7#1.00TIFF [facility] Consent for Treatmenton 06-07 Consent for Treatment [id number] 31 [id number] #1.00TIFF [facility] Multi-Wound Charton 06-25-20 Multi-Wound Chart [id number] 3#1.00TIFF [facility] Nursing Assessment - Woundon 06-25-2023 Nursing Assessment - Wound [id number]. [id number] 8#1.00TIFF [facility] Nursing Note - Woundon 06-25 Nursing Note - Wound [id number] 1 [id number] 6#1.00TIFF [facility] Physician Orderon 06-25-2023 Physician Order [id number] 2#1.00TIFF [facility] Procedure - Woundon 06-25-20 Procedure - Wound [id number] 1#1.00TIFF [facility] Progress Note - Woundon 06-07 Progress Note - Wound [id number] 31 [id number] 7#1.00TIFF Normal [facility] ED Note-Physicianon 06-20-20 ED Note-Physician Basic Information Time Seen: Xander Anne PA-C 06/19/2023 12:21 Chief Complaint Pt was possibly [...] and Complexity of Problems Differential Diagnosis: [] [facility] Data External documents reviewed: [...] days 06/22/2023 EDT [address] [facility] [place] [address]- Business (1) Additional Instructions: Follow-up with your primary care provider in 3 to 5 days. If symptoms worsen, do not improve, or new symptoms arise please report back to emergency department for further evaluation. Patient Education Insect Bite, Adult, Gvwb-rj-Ekjp Attestation Patient seen and evaluated by the physician assistant director of nursing. Attending physician was present in the emergency department and supervised care. This visit was performed by both the physician and an APC. I performed all aspects of the MDM as documented. This report was transcribed using voice recognition software. Every effort was made to ensure accuracy, however, inadvertently computerized wood gluer mistakes may be present. Appropriate healthcare PPE was used in evaluating this patient. The patient was placed in a mask. The healthcare provider was wearing mask, gloves, and utilizing proper hand hygiene. All equipment was prop (more content not included)... [facility] Comment on above: Result Comment: Elec tronically Signed By: Xander Anne PA-C\.br\Date and Time Signed: 06/19/23 13:22 EDT\.br\Electronically Co-Signed By: Teddy Luna DO\.br\Date and Time Co-Signed: 06/20/23 07:44 EDT Consent for Treatmenton 06-07 Consent for Treatment [id number] #1.00TIFF [facility] Discharge Instructionson Discharge Instructions [id number] 2#1.00TIFF [facility] ED Clinical Summaryon 2022 ED Clinical Summary [address] [address] ED Clinical Summary Person Information Name: WILL ANDERSON [place] Age: 37 Years : 1985 Sex: Male Language: Mauritanian PCP: NONE, XXXX Marital Status: Single Visit [...] 06/19/2023 13:28:07 06/19/2023 13:28:07 06/19/2023 13:28:07 ADDRESS: [facility] [address] [facility] [id number] PHYS DOC NOTES: MEDICAL INFORMATION: Prescriptions Given: Medications to Continue with No Changes Other Medications clindamycin (clindamycin 150 mg Cap) 2 Capsules By Mouth 4 times a day. Refills: 0. ondansetron (Zofran ODT 4 mg Tab-Dis) 1 Tablets By Mouth every 8 hours as needed Nausea/Vomiting. Refills: 0. PATIENT EDUCATION INFORMATION: Instructions: Insect Bite, Adult, Xaca-hh-Tnjw Follow up: With: Address: When: [address] [place] [address] [employer] (1) In 3 days 06/22/2023 Comments: Follow-up with your primary care provider in 3 to 5 days. If symptoms worsen, do not improve, or new symptoms arise please report back to emergency department for further evaluation. DIAGNOSIS: Bitten or stung by nonvenomous insect and other nonvenomous arthropods, initial encounter; Insect bite of right thigh Normal [facility] ED Patient Education Noteon 06-19-2023 ED [...] an anaphylactic reaction may include: ? Feeling telecommunications engineer the face (flushed). Your face may turn [...] day. General instructions ? Apply or take snwn-fvn-clwskco and prescription medicines only as told by [...] ? Oil of lemon eucalyptus (OLE). ? [id number]. ? Consider spraying your clothing with a [...] anaphylactic reaction. Signs may include: ? Feeling telecommunications engineer the face. ? Itchy, red, swollen areas [...] your local (more content not included)... Normal [facility] ED Patient Summaryon 023 ED Patient Summary [place] [id number] Patient Discharge Instructions Person Information Name: WILL ANDERSON Age: 37 Years Arrival Date: 06/19/2023 12:15:49 Discharge Diagnosis: Bitten or stung by nonvenomous insect and other nonvenomous arthropods, initial encounter; Insect bite of right thigh Primary Care Physician: NONE, XXXX Provider Information Primary Provider: Teddy Luna DO Advanced Decision Support Manager:None The exam and treatment you received in the Emergency Department were for an urgent problem and are not intended as complete care. It is important that you follow up with a doctor, nurse practitioner, or physician?s assistant director of nursing for ongoing care. If your symptoms become [...] Instructions: With: Address: When: Colby Link [address] [place] [address] [facility] (1) In 3 days 06/22/2023 Comments: Follow-up [...] provider. Patient Education Materials: Insect Bite, Adult, Txzt-cb-Kvvm A MESSAGE TO ALL PATIENTS REGARDING OPIOIDS PRESCRIPTION OPIOIDS: WHAT YOU NEED TO KNOW Prescription opioids can be used to help relieve sscyshdk-no-zxywqg pain and are often prescribed following a [...] guidance from the Food and Drug Administration (www.fda.gov/Drugs/R esourcesForYou (more content not included)... Normal [facility] Consent for Procedure/Surger yobri 06-18-2023 Consent for Procedure/Surgery [id number] 91#1.00TIFF [facility] Consent for Treatmenton 06-07 Consent for Treatment [id number] 31 [id number] #1.00TIFF [facility] Multi-Wound Charton 06-18-20 Multi-Wound Chart [id number] 4#1.00TIFF [facility] Nursing Assessment - Woundon 06-18-2023 Nursing Assessment - Wound [id number] 6#1.00TIFF [facility] Nursing Note - Woundon 06-18 Nursing Note - Wound [id number] 1 [id number] 1#1.00TIFF [facility] Physician Orderon 06-18-2023 Physician Order [id number] 4#1.00TIFF [facility] Procedure - Woundon 06-18-20 Procedure - Wound [id number] 6#1.00TIFF [facility] Progress Note - Woundon 06-07 Progress Note - Wound [id number] 31 [id number] 7#1.00TIFF [facility] Physician Orderon 06-17-2023 Physician Order [id number] 3#2.00TIFF [facility] Consent for Treatmenton Consent for Treatment [id number] 31 [id number] #1.00TIFF [facility] Multi-Wound Charton 06-11-20 Multi-Wound Chart [id number] 2#1.00TIFF [facility] Nursing Assessment - Woundon 06-11-2023 Nursing Assessment - Wound [id number] 3#1.00TIFF [facility] Nursing Note - Woundon 06-11 Nursing Note - Wound [id number] 1 [id number] 5#2.00TIFF [facility] Consent for Procedure/Surger yon 06-04-2023 Consent for Procedure/Surgery [id number] 2#1.00CD:127 [facility] Consent for Treatmenton 05-09 Consent for Treatment [id number] 30 [id number] #1.00CD:127 [facility] Multi-Wound Charton 06-04-20 Multi-Wound Chart [id number] 0#1.00CD:127 [facility] Nursing Assessment - Woundon 06-04-2023 Nursing Assessment - Wound [id number] 3#1.00CD:127 [facility] Nursing Note - Woundon 06-04 Nursing Note - Wound [id number] 0 [id number] 5#1.00CD:127 [facility] Physician Orderon 06-04-2023 Physician Order [id number] 3#1.00CD:127 [facility] Procedure - Woundon 06-04-20 Procedure - Wound [id number] 7#1.00CD:127 [facility] Progress Note - Woundon 05-09 Progress Note - Wound [id number] 30 [id number] 4#1.00CD:127 [facility] Insurance Correspondenceon 0 06-03-2023 Insurance Correspondence [id number] #1.00CD:127 [facility] Consent for Treatmenton 05-08 Consent for Treatment [id number] 30 [id number] #1.00CD:127 [facility] Correspondence - Woundon Correspondence - Wound [id number] #1.00CD:127 [facility] Insurance Correspondenceon 0 05-25-2023 Insurance Correspondence [id number] #1.00CD:127 [facility] Insurance Correspondence [id number] 5#1.00CD:127 [facility] Multi-Wound Charton 05-25-20 Multi-Wound Chart [id number] 6#1.00CD:127 [facility] Nursing Assessment - Woundon 05-25-2023 Nursing Assessment - Wound [id number] 3#1.00CD:127 [facility] Nursing Note - Woundon 05-25 Nursing Note - Wound [id number] 0 [id number] 6#1.00CD:127 [facility] Physician Orderon 05-25-2023 Physician Order [id number] 6#1.00CD:127 [facility] Procedure - Woundon 05-25-20 Procedure - Wound [id number] 4#1.00CD:127 [facility] Progress Note - Woundon 05-08 Progress Note - Wound [id number] 30 [id number] 5#1.00CD:127 [facility] Nursing Note - Woundon 05-21 Nursing Note - Wound [id number] 0 [id number] 5#1.00CD:127 [facility] Insurance Correspondenceon 0 05-18-2023 Insurance Correspondence [id number] #1.00CD:127 [facility] Insurance Correspondenceon 0 05-15-2023 Insurance Correspondence [id number]# 1.00CD:127 [facility] Insurance Correspondence [id number] #1.00CD:127 [facility] Consent for Procedure/Surger yon 05-14-2023 Consent for Procedure/Surgery [id number] 7#1.00CD:127 [facility] Consent for Procedure/Surgery [id number] 6#1.00CD:127 [facility] Consent for Treatmenton Consent for Treatment [id number] 30 [id number] #1.00CD:127 [facility] Correspondence - Woundon Correspondence - Wound [id number] 1#1.00CD:127 [facility] Nursing Assessment - Woundon 05-14-2023 Nursing Assessment - Wound [id number] 1#1.00CD:127 [facility] Nursing Note - Woundon 05-14 Nursing Note - Wound [id number] 0 [id number] 9#1.00CD:127 [facility] Physician Orderon 05-14-2023 Physician Order [id number] 6#1.00CD:127 [facility] Procedure - Woundon 05-14-20 Procedure - Wound [id number] 5#1.00CD:127 [facility] Progress Note - Woundon Progress Note - Wound [id number] 30 [id number] 3#1.00CD:127 [facility] Insurance Correspondenceon 0 05-13-2023 Insurance Correspondence [id number]#1 .00CD:127 [facility] Nursing Note - Woundon 05-13 Nursing Note - Wound [id number] 0 [id number] 5#2.00CD:127 [facility] Insurance Correspondenceon 0 05-12-2023 Insurance Correspondence [id number] 8#1.00CD:127 [facility] Physician Orderon 05-12-2023 Physician Order [id number] 2#1.00CD:127 [facility] Procedure - Woundon 05-12-20 Procedure - Wound [id number] 7#1.00CD:127 [facility] Consent for Treatmenton Consent for Treatment [id number] 09 [id number] 5#1.00CD:127 [facility] Multi-Wound Charton 05-08-20 Multi-Wound Chart [id number] 7#1.00CD:127 [facility] Nursing Assessment - Woundon 05-08-2023 Nursing Assessment - Wound [id number] 8#1.00CD:127 [facility] Nursing Note - Woundon 05-08 Nursing Note - Wound [id number] 0 [id number] 8#1.00CD:127 [facility] Consent for Treatmenton 04-09 Consent for Treatment [id number] 30 [id number] #1.00CD:127 [facility] Multi-Wound Charton 05-07-20 Multi-Wound Chart [id number] 1#1.00CD:127 [facility] Nursing Assessment - Woundon 05-07-2023 Nursing Assessment - Wound [id number] 6#1.00CD:127 [facility] Physician Orderon 05-07-2023 Physician Order [id number] 7#1.00CD:127 [facility] Procedure - Woundon 05-07-20 Procedure - Wound [id number] 1#1.00CD:127 [facility] Progress Note - Woundon - Progress Note - Wound 170.71.121.117. 30 [id number] 0#1.00CD:127 [facility] Consent for Treatmenton 04-08 Consent for Treatment [id number] 08 [id number] 8#1.00CD:127 [facility] Physician Orderon 05-01-2023 Physician Order [id number] 6#1.00CD:127 [facility] Procedure - Woundon 05-01-20 Procedure - Wound [id number] 2#1.00CD:127 [facility] Multi-Wound Charton 04-30-20 Multi-Wound Chart [id number] 3#1.00CD:127 [facility] Nursing Assessment - Woundon 04-30-2023 Nursing Assessment - Wound [id number] 2#1.00CD:127 [facility] Nursing Note - Woundon 04-30 Nursing Note - Wound [id number] 0 [id number] 1#1.00CD:127 Normal [facility] Outside Recordson 04-28-2023 Outside Records [id number] 4#1.00CD:127 [facility] Consent for Treatmenton 04-07 Consent for Treatment [id number] 30 [id number] #1.00CD:127 [facility] Nursing Note - Woundon 04-23 Nursing Note - Wound [id number] 0 [id number] 1#1.00CD:127 [facility] Physician Orderon 04-23-2023 Physician Order [id number] 9#1.00CD:127 [facility] Procedure - Woundon 04-23-20 23 Procedure - Wound [id number] 8#1.00CD:127 [facility] Progress Note - Woundon 04-07 Progress Note - Wound [id number] 30 [id number] 3#1.00CD:127 [facility] Addendum Noteon 04-22-2023 [employer] Authentication Interface Message Text Encounter addended by: Tanvir Black MD on: 04/22/2023 9:05 AM Actions taken: Clinical Note Signed Normal [facility] BASIC METABOLIC PANELon 04-07 Anion gap [Moles/Vol] 12 mmol/L Normal 10-20 [facility] Comment on above: Performed By: #### Nadia Love, CH8, HEPATIC ####[facility] [id number] [place], [place], Calcium [Mass/Vol] 8.6 mg/dL Normal 8.4-10.4 [facility] Comment on above: Performed By: #### Nadia Love, CH8, HEPATIC ####[facility] [id number] [place], [place], Chloride [Moles/Vol] 104 mmol/L Normal 97-111 [facility] Comment on above: Performed By: #### LILLY Porter, HEPATIC ####[facility] [id number] [place], [place], CO2 [Moles/Vol] 26 mmol/L Normal 21-30 [facility] Comment on above: Performed By: #### LILLY Porter, HEPATIC ####[facility] [id number] [place], [place], Creatinine [Mass/Vol] 0.52 mg/dL Low 0.80-1.30 [facility] Comment on above: Performed By: #### LILLY Porter, HEPATIC ####[facility] [id number] [place], [place], ESTIMATED GFR (CKD-EPI) 132 mL/min/1.73sqm Normal >=60 [facility] Comment on above: Result Comment: 2020 [...] Inclusion of Race in Diagnosing Kidney Disease. [place] Journal of Kidney Diseases 2021;79(2):268-88.e1. 2. N Engl J Med 2020 Vol. 385 Issue 19 Pages 2602-3649 Performed By: #### LILLY Porter, HEPATIC ####[facility] [id number] [place], [place], Glucose [Mass/Vol] 80 mg/dL Normal 68-110 [facility] Comment on above: Performed By: #### LILLY Porter, HEPATIC ####[facility] [id number] [place], [place], Potassium [Moles/Vol] 4.0 mmol/L Normal 3.3-5.3 [facility] Comment on above: Performed By: #### LILLY Porter, HEPATIC ####[facility] [id number] [place], [place], Sodium [Moles/Vol] 138 mmol/L Normal 135-148 [facility] Comment on above: Performed By: #### L RHODA Love8, HEPATIC ####[facility] [id number] [place], [place], Urea nitrogen [Mass/Vol] 7 mg/dL Low 8-22 [facility] Comment on above: Performed By: #### L RHODA Love8, HEPATIC ####[facility] [id number] [place], [place], Basic metabolic 2000 panelon 04-21-2023 Anion gap [Moles/Vol] 12 mmol/L 10 - 20 [facility] Calcium [Mass/Vol] 8.6 mg/dL 8.4 - 10.4 mg/dL [facility] Chloride [Moles/Vol] 104 mmol/L 97 - 111 mmol/L [facility] CO2 [Moles/Vol] 26 mmol/L 21 - 30 mmol/L [facility] Creatinine [Mass/Vol] 0.52 mg/dL Low 0.80 - 1.30 mg /dL [facility] GFR/1.73 sq M.predicted MDRD (S/P/Bld) [Vol rate/Area] 132 mL/min/{1.73_m2} - [facility] Comment on above: 2020 CKD EPI Equatio [...] Inclusion of Race in Diagnosing Kidney Disease. [place] Journal of Kidney Diseases 202;79(2):268-88.e1. 2. N Engl J Med 1 Vol. 385 Issue 19 Pages 2506-2618 Glucose [Mass/Vol] 80 mg/dL 68 - 110 mg/dL [facility] Potassium [Moles/Vol] 4.0 mmol/L 3.3 - 5.3 mmol /L [facility] Sodium [Moles/Vol] 138 mmol/L 135 - 148 mmol/L [facility] Urea nitrogen [Mass/Vol] 7 mg/dL Low 8 - 22 mg/dL [facility] CBC WITH DIFFERENTIALon 04-07 Basophils (Bld) [#/Vol] 0.04 10*3/uL Normal 0.00-0.20 [facility] Comment on above: Performed By: #### H EMO DNA #### [facility] Pathology [address] [facility] [place], [place] Basophils/100 WBC (Bld) 0.8 % Normal <=1.9 [facility] Comment on above: Performed By: #### H EMO DNA #### [facility] [address] [facility] [place], [place] Eosinophils (Bld) [#/Vol] 0.12 10*3/uL Normal 0.00-0.70 [facility] Comment on above: Performed By: #### H EMO DNA #### [facility] [address] [facility] [place], [place] Eosinophils/100 WBC (Bld) 2.5 % Normal 0.1-4.0 [facility] Comment on above: Performed By: #### H EMO DNA #### [facility] [address] [facility] [place], [place] Erythrocyte distribution width (RBC) [Ratio] 19.6 % High 11.5-14.5 [facility] Comment on above: Performed By: #### H EMO DNA #### [facility] [address] [facility] [place], [place] Hematocrit (Bld) [Volume fraction] 36.3 % Low 41.0-53.0 [facility] Comment on above: Performed By: #### H EMO DNA #### [facility] [address] [facility] [place], [place] Hemoglobin (Bld) [Mass/Vol] 12.2 g/dL Low 13.9-16.3 [facility] Comment on above: Performed By: #### H EMO DNA #### [facility] [address] [facility] [place], [place] Lymphocytes (Bld) [#/Vol] 1.13 10*3/uL Normal 1.00-4.80 [facility] Comment on above: Performed By: #### H EMO DNA #### [facility] [address] [facility] [place], [place] Lymphocytes/100 WBC (Bld) 23.3 % Low 24.0-44.0 [facility] Comment on above: Performed By: #### H EMO DNA #### [facility] [address] [facility] [place], [place] MCH (RBC) [Entitic mass] 34.3 pg High 26.0-34.0 [facility] Comment on above: Performed By: #### H EMO DNA #### [facility] [address] [facility] [place], [place] MCHC (RBC) [Mass/Vol] 33.7 g/dL Normal 32.0-35.9 [facility] Comment on above: Performed By: #### H EMO DNA #### [facility]ology [address] [place] [address] [place], [place] MCV (RBC) [Entitic vol] 102 fL High 80-100 [facility] Comment on above: Performed By: #### H EMO DNA #### [facility] [address] [facility] [place], [place] MONOCYTE DISTRIBUTION WIDTH Normal [facility] Comment on above: Performed By: #### H EMO DNA #### [facility] [address] [facility] [place], [place] Monocytes (Bld) [#/Vol] 0.61 10*3/uL Normal 0.20-1.00 [facility] Comment on above: Performed By: #### H EMO DNA #### [facility] [address] [facility] [place], [place] Monocytes/100 WBC (Bld) 12.5 % High 2.0-11.0 [facility] Comment on above: Performed By: #### H EMO DNA #### [facility] [address] [facility] [place], [place] Neutrophils (Bld) [#/Vol] 2.95 10*3/uL Normal 1.50-8.00 [facility] Comment on above: Performed By: #### H EMO DNA #### [facility] [address] [facility] [place], [place] Neutrophils/100 WBC (Bld) 60.8 % Normal 31.0-76.0 [facility] Comment on above: Performed By: #### H EMO DNA #### [facility] [address] [facility] [place], [place] Platelet mean volume (Bld) [Entitic vol] 8.6 fL Normal 7.5-11.2 [facility] Comment on above: Performed By: #### H EMO DNA #### [facility] [address] [facility] [place], [place] Platelets (Bld) [#/Vol] 85 10*3/uL Low 150-400 [facility] Comment on above: Performed By: #### H EMO DNA #### [facility] [address] [facility] [place], [place] RBC (Bld) [#/Vol] 3.57 10*6/uL Low 4.50-5.90 [facility] Comment on above: Performed By: #### H EMO DNA #### [facility] [address] [facility] [place], [place] WBC (Bld) [#/Vol] 4.9 10*3/uL Normal 4.5-11.5 [facility] Comment on above: Performed By: #### H [facility] DNA #### [facility] [address] [facility] [place], [place] CBC WITH DIFFERENTIALOrdered By: Yany Carrera on 04-21-2023 Basophils (Bld) [#/Vol] 0.04 10*3/uL 0.00 - 0.20 K/uL [facility] Basophils/100 WBC (Bld) 0.8 % NINF - 1.9 % [facility] Eosinophils (Bld) [#/Vol] 0.12 10*3/uL 0.00 - 0.70 K/uL [facility] Eosinophils/100 WBC (Bld) 2.5 % 0.1 - 4.0 % [facility] Erythrocyte distribution width (RBC) [Ratio] 19.6 % High 11.5 - 14.5 % [facility] Hematocrit (Bld) [Volume fraction] 36.3 % Low 41.0 - 53.0 % [facility] Hemoglobin (Bld) [Mass/Vol] 12.2 g/dL Low 13.9 - 16.3 g/dL [facility] Interpretation and review of laboratory results Abnormal [facility] Lymphocytes (Bld) [#/Vol] 1.13 10*3/uL 1.00 - 4.80 K/uL [facility] Lymphocytes/100 WBC (Bld) 23.3 % Low 24.0 - 44.0 % [facility] MCH (RBC) [Entitic mass] 34.3 pg High 26.0 - 34.0 pg [facility] MCHC (RBC) [Mass/Vol] 33.7 g/dL 32.0 - 35.9 g/ dL [facility] MCV (RBC) [Entitic vol] 102 fL High 80 - 100 fL [facility] Monocyte distribution width Auto (Bld) [Entitic vol] [facility] Monocytes (Bld) [#/Vol] 0.61 10*3/uL 0.20 - 1.00 K/uL [facility] Monocytes/100 WBC (Bld) 12.5 % High 2.0 - 11.0 % [facility] Neutrophils (Bld) [#/Vol] 2.95 10*3/uL 1.50 - 8.00 K/uL [facility] Neutrophils/100 WBC (Bld) 60.8 % 31.0 - 76.0 % [facility] Platelet mean volume (Bld) [Entitic vol] 8.6 fL 7.5 - 11.2 fL [facility] Platelets (Bld) [#/Vol] 85 10*3/uL Low 150 - 400 K/uL [facility] RBC (Bld) [#/Vol] 3.57 10*6/uL Low [facility] WBC (Bld) [#/Vol] 4.9 10*3/uL 4.5 - 11.5 K/uL [facility] HAPTOGLOBINon 04-21-2023 HAPTOGLOBIN < 30 Low 36-220 [facility] Comment on above: Performed By: #### H APT ####[facility] [id number] [place], [address] Haptoglobin [Mass/Vol] mg/dL Low 36 - 220 mg/dL [facility] Interpretation and review of laboratory results Abnormal [facility] HEPATIC FUNCTION PANELon Albumin [Mass/Vol] 3.2 g/dL Low 3.4-5.1 [facility] Comment on above: Performed By: #### LILLY Porter, HEPATIC ####S PATHOLOGY [id number] [place], [place], ALK 284 IU/L High 40-200 [facility] Comment on above: Performed By: #### LILLY Porter, HEPATIC ####S PATHOLOGY [id number] [place], [place], ALT [Catalytic activity/Vol] 38 U/L Normal 7-40 [facility] Comment on above: Performed By: #### LILLY Porter, HEPATIC ####[facility] [id number] [place], [place], AST [Catalytic activity/Vol] 70 U/L High 7-40 [facility] Comment on above: Performed By: #### LILLY Porter, HEPATIC ####[facility] [id number] [place], [place], Bilirubin [Mass/Vol] 7.5 mg/dL High 0.1-1.5 [facility] Comment on above: Performed By: #### LILLY Porter, HEPATIC ####[facility] [id number] [place], [place], Bilirubin.direct [Mass/Vol] 1.89 mg/dL High 0.10-0.30 [facility] Comment on above: Performed By: #### LILLY Porter, HEPATIC ####S PATHOLOGY [id number] [place], [place], Protein [Mass/Vol] 7.6 g/dL Normal 6.2-8.3 [facility] Comment on above: Performed By: #### LILLY Porter, HEPATIC ####S PATHOLOGY [id number] [place], [place], Albumin [Mass/Vol] 3.2 g/dL Low 3.4 - 5.1 g/dL [facility] ALP [Catalytic activity/Vol] 284 U/L High [facility] ALT [Catalytic activity/Vol] 38 U/L [facility] AST [Catalytic activity/Vol] 70 U/L High [facility] Bilirubin [Mass/Vol] 7.5 mg/dL High 0.1 - 1.5 mg/dL [facility] Bilirubin.direct [Mass/Vol] 1.89 mg/dL High 0.10 - 0.30 mg/dL [facility] Protein [Mass/Vol] 7.6 g/dL 6.2 - 8.3 g/dL [facility] LDHon 04-21-2023 LD 257 IU/L High 50-220 [facility] Comment on above: Performed By: #### L D, CH8, HEPATIC ####S PATHOLOGY [id number] [place], [place], LDH [Catalytic activity/Vol] 257 U/L High [facility] MANUAL DIFF AND MORPHon 04-07 ANISOCYTOSIS Slight Normal [facility] Comment on above: Performed By: #### D AT #### [facility] [address] [place] [address], CELLS COUNTED TOTAL # IN BLOOD Normal [facility] Comment on above: Performed By: #### D AT #### [facility] [address] [place] [address], FRAGMENTED RBC Few Normal [facility] Comment on above: Performed By: #### D AT #### [facility] [address] [place] [address], OVALOCYTES Few Normal [facility] Comment on above: Performed By: #### D AT #### [facility] [address] [place] [address], TARGET CELLS Few Normal [facility] Comment on above: Performed By: #### D AT #### S [facility] [address] [place] [address], TEARDROP CELLS Few Normal [facility] Comment on above: Performed By: #### D AT #### S [facility] LAB[facility]AT[facility] [address] [place] [address], Anisocytosis Ql (Bld) Slight [facility] Cells Counted Total (Bld) [#] [facility] Dacrocytes LM Ql (Bld) Few [facility] Ovalocytes LM Ql (Bld) Few [facility] Schistocytes LM Ql (Bld) Few [facility] Target cells LM Ql (Bld) Few [facility] No Panel InformationOrdered By: Yany Carrera on 04-21-2023 [facility] No Panel Informationon 04-21 Interpretation and review of laboratory results Abnormal [facility] Progress Noteson 04-21-2023 [employer] Authentication Interface Message Text Patient was identified by name and date of . Monie Hernandez RN Patient at risk for falls:No Falls Risk protocol implemented: No Patient arrived to clinic for blood work. Labs obtained via venipuncture in the R AC with a #23 gauge butterfly needle. drsg applied and patient tolerated procedure well. Monie Hernandez RN Normal [facility] [employer] [facility] [employer] Authentication Interface Message Text Hematology AND Oncology [...] and headaches. Endo/Heme/Allergies: Does not bruise/bleed easily. Psychiatric/Behavior al: Negative for depression, substance abuse and suicidal ideas. The patient is not nervous/anxious and does not have insomnia. 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 Followed with Rheum at [facility] Open fracture of other and unspecified part [...] 120 min Stress: Stress Concern Present (02/27/2023) [employer] [place] [employer] - Occupational Stress Questionnaire Feeling of Stress : Very much Social Connections: Socially Isolated (02/27/2023) Social Connection and Isolation Panel [NHANES] Frequency of Communication with Friends and Family: More than three times a week Frequency of Social Gatherings with Friends and Family: Patient refused Attends Zoroastrianism Services: Never Active Member of Clubs or Organizations: No Attends Club or Organization Meetings: Never Marital Status: Never Intimate Partner Violence: Not At Risk (02/27/2023) Humiliation, Afraid, Rape, and Kick questionnaire Fear of Current or Ex-Partner: No Emotionally Abused: No Physically Abused: No Sexually Abused: No CURRENT MEDICATIONS: Current Outpatient Medications Medication Sig Dispense Refill sulfamethoxazole-tri methoprim 800-160 MG (Bactrim DS) 800-160 MG per [...] lactulos (more content not included)... Normal [facility] [employer] Authentication Interface Message Text Patient was identified [...] SpO2 100 %. Gustabo Pittman Normal [facility] [employer] Authentication Interface Message Text Patient was identified by name and date of . Gustabo Hernandezcristian Pittman Body Mass Index is 27.08. Body Surface Area is 1.90 square meters according to the formula of Eli and Eli. Patient at risk for falls:No Falls Risk protocol implemented: No Blood pressure 136/67, pulse 79, temperature 97.7 ???F (36.5 ???C), resp. rate 20, height 5' 7 (1.702 m), weight 172 lb 14.4 oz (78.4 kg), SpO2 100 %. Gustabo Pittman Normal [facility] RETICULOCYTE COUNTon 023 IMMATURE RETICULOCYTE FRACTION 0.46 Normal 0.30-0.50 [facility] Comment on above: Performed By: #### H [facility] DNA #### [facility] [address] [facility] [place], [place] RETIC # 0.09 M/uL High 0.03-0.08 [facility] Comment on above: Performed By: #### H EMO DNA #### [facility] [address] [facility] [place], [place] RETIC % 2.6 % High 0.5-1.5 [facility] Comment on above: Performed By: #### H EMO DNA #### [facility] [address] [facility] [place], [place] Immature reticulocytes/Total reticulocytes (Bld) 0.46 % 0.30 - 0.50 [facility] Interpretation and review of laboratory results Abnormal [facility] Reticulocytes (Bld) [#/Vol] 0.09 10*3/uL High [facility] Reticulocytes/100 RBC (Bld) 2.6 % High 0.5 - 1.5 % [facility] US PVR Lower EXT [...] Melvin Varghese MD Transcribed by: 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 [facility] Consent for Treatmenton 04-07 Consent for Treatment [id number] 30 [id number] #1.00CD:127 [facility] Consent for Procedure/Surger yon 04-13-2023 Consent for Procedure/Surgery [id number] #1.00CD:127 [facility] Consent for Treatmenton Consent for Treatment [id number] #1.00CD:127 [facility] Insurance Correspondenceon 0 04-13-2023 Insurance Correspondence [id number] #1.00CD:127 [facility] Multi-Wound Charton 04-13-20 Multi-Wound Chart [id number] 8#1.00CD:127 [facility] Nursing Assessment - Woundon 04-13-2023 Nursing Assessment - Wound [id number] 4#1.00CD:127 [facility] Nursing Note - Woundon 04-13 Nursing Note - Wound [id number] 0 [id number] 7#1.00CD:127 [facility] Physician Orderon 04-13-2023 Physician Order [id number] #1.00CD:127 [facility] Physician Order [id number] 2#1.00CD:127 [facility] Procedure - Woundon 04-13-20 Procedure - Wound [id number] 8#1.00CD:127 [facility] Progress Note - Woundon Progress Note - Wound [id number] 30 [id number] 8#1.00CD:127 [facility] Consent for Treatmenton 03-08 Consent for Treatment [id number] #1.00CD:127 [facility] Multi-Wound Charton 03-30-20 Multi-Wound Chart [id number] 6#1.00CD:127 [facility] Nursing Assessment - Woundon 03-30-2023 Nursing Assessment - Wound [id number] 8#1.00CD:127 [facility] Nursing Note - Woundon 03-30 Nursing Note - Wound [id number] 0 [id number]#1.00CD:127 [facility] Physician Orderon 03-30-2023 Physician Order [id number] 1#1.00CD:127 [facility] Procedure - Woundon 03-30-20 Procedure - Wound [id number] 6#1.00CD:127 [facility] Progress Note - Woundon 03-08 Progress Note - Wound [id number] 30 [id number] 1#1.00CD:127 Normal [facility] Discharge Instructionson Discharge Instructions [id number]# 1.00CD:127 Normal [facility] Auto Diffon 03-22-2023 Basophils/100 WBC (Bld) 0.4 % Normal 0.0-2.0 [facility] Comment on above: Order Comment: Order Added by Discern Expert. Performed By: #### 2 645653, 3521493, 79603349, 1713960, 6299461, 2585546, 24469452 #### [facility] [address] [place] [address] Basophils/Leukocytes Auto (Bld) [Pure # fraction] 0.0 E9/L Normal 0.0-0.2 [facility] Comment on above: Order Comment: Order Added by Angelito Expert. Performed By: #### 2 432104, 3624801, 10559450, 8530294, 3064021, 0127555, 17828409 #### [facility] [address] [place] [address] Eosinophils/100 WBC (Bld) 1.3 % Normal 0.0-8.0 [facility] Comment on above: Order Comment: Order Added by Angelito Expert. Performed By: #### 2 656397, 5142046, 52105568, 8234132, 9022487, 8082880, 20634927 #### [facility] [address] [place] [address] Eosinophils/Leukocyte s Auto (Bld) [Pure # fraction] 0.1 E9/L Normal 0.0-0.5 [facility] Comment on above: Order Comment: Order Added by Angelito Expert. Performed By: #### 2 244576, 0826285, 04753441, 2460070, 6821040, 3337797, 79083624 #### [facility] [address] [place] [address] Lymphocytes/100 WBC (Bld) 14.6 % Normal 14.0-50.0 [facility] Comment on above: Order Comment: Order Added by Discern Expert. Performed By: #### 2 360232, 6075336, 03176499, 9448690, 8486703, 8125135, 46712348 #### [facility] [address] [place] [address] Lymphocytes/Leukocyte s Auto (Bld) [Pure # fraction] 1.5 E9/L Normal 1.0-4.0 [facility] Comment on above: Order Comment: Order Added by Discern Expert. Performed By: #### 2 764378, 2117773, 84365036, 1409712, 2898733, 7552481, 96517777 #### [facility] [address] [place] [address] Monocytes/100 WBC (Bld) 7.9 % Normal 4.0-14.0 [facility] Comment on above: Order Comment: Order Added by Discern Expert. Performed By: #### 2 165882, 8131844, 08454136, 4387844, 3524911, 2299883, 26768534 #### [facility] [address] [place] [address] Monocytes/Leukocytes Auto (Bld) [Pure # fraction] 0.8 E9/L Normal 0.2-1.0 [facility] Comment on above: Order Comment: Order Added by Discern Expert. Performed By: #### 2 945146, 4135770, 04037564, 6687348, 1126556, 6688652, 20432441 #### [facility] [address] [place] [address] Neutrophils/100 WBC (Bld) 75.8 % High 36.0-75.0 [facility] Comment on above: Order Comment: Order Added by Discern Expert. Performed By: #### 2 399496, 6868237, 06292306, 8332015, 8167823, 8097783, 58720069 #### [facility] [address] [place] [address] Neutrophils/Leukocyte s Auto (Bld) [Pure # fraction] 7.7 E9/L High 2.0-7.5 [facility] Comment on above: Order Comment: Order Added by Discern Expert. Performed By: #### 2 321815, 3616955, 98906783, 2868992, 0974560, 2751763, 71964336 #### [facility] [address] [place] [address] CBC w/ Auto Diffon Erythrocyte distribution width (RBC) [Ratio] 15.4 % High 10.9-14.2 [facility] Comment on above: Performed By: #### 2 801287, 0930076, 30547618, 9505384, 3867473, 4967052, 71855051 #### [facility] [address] [place] [address] Hematocrit (Bld) [Volume fraction] 30.1 % Low 37.7-49.0 [facility] Comment on above: Performed By: #### 2 409450, 6032932, 38138991, 0802060, 6382014, 1407568, 61559660 #### [facility] [address] [place] [address] Hemoglobin (Bld) [Mass/Vol] 10.3 g/dL Low 13.5-17.5 [facility] Comment on above: Performed By: #### 2 845385, 7885989, 63486887, 5145175, 8102739, 3530055, 24870890 #### [facility] [address] [place] [address] MCH (RBC) [Entitic mass] 34.1 pg High 27.0-34.0 [facility] Comment on above: Performed By: #### 2 513560, 4413748, 19931526, 4390770, 8097125, 4939778, 21393536 #### [facility] [address] [place] [address] MCHC (RBC) [Mass/Vol] 34.2 g/dL Normal 31.4-36.0 [facility] Comment on above: Performed By: #### 2 349685, 1996070, 12110046, 7085376, 4410552, 6985429, 77006264 #### [facility] [address] [place] [address] MCV (RBC) [Entitic vol] 99.4 fL Normal 80.0-100.0 [facility] Comment on above: Performed By: #### 2 132850, 4771424, 89440328, 4127777, 6039138, 7572350, 98587192 #### [facility] [address] [place] [address] Platelet mean volume (Bld) [Entitic vol] 8.6 fL Normal 6.4-10.8 [facility] Comment on above: Performed By: #### 2 937922, 7355208, 11655903, 0464044, 1026051, 4956581, 15623323 #### [facility] [address] [place] [address] Platelets (Bld) [#/Vol] 87.0 E9/L Low 150.0-500.0 [facility] Comment on above: Performed By: #### 2 577340, 3258126, 10864588, 7829049, 0231240, 2107038, 04561621 #### [facility] [address] [place] [address] RBC (Bld) [#/Vol] 3.0 E12/L Low 4.3-5.9 [facility] Comment on above: Performed By: #### 2 807914, 4945421, 14964876, 9163991, 7397354, 0499995, 37297317 #### [facility] [address] [place] [address] WBC corrected for nucl RBC Auto (Bld) [#/Vol] 10.1 E9/L Normal 4.0-11.0 [facility] Comment on above: Performed By: #### 2 513976, 0976957, 32264950, 9021794, 3376143, 9993412, 14355115 #### [facility] [address] [place] [address] CHEMISTRYOrdered By: SYSTEM SYSTEM on 03-22-2023 Albumin [...] 8.2 mg/dL Low 8.9 - 11.1 mg/dL [facility] Chloride [Moles/Vol] 103 mmol/L Normal 101 - 111 mmol/ L [facility] CO2 [Moles/Vol] 25 mmol/L Normal 21 - 31 mmol/L [facility] Creatinine [Mass/Vol] 0.6 mg/dL Normal 0.5 - 1.3 mg/d L [facility] GFR/1.73 sq M.predicted among non-blacks MDRD (S/P/Bld) [Vol rate/Area] 127 mL/min/1.73 m2 Normal >=59mL/min/1.73 m2 FT [facility] S Globulin (S) [Mass/Vol] 4.7 g/dL High 1.4 - 4.0 gm/dL [facility] Glucose [Mass/Vol] 146 mg/dL Normal 55 - 199 mg/dL [facility] Lactate [Mass/Vol] 2.0 mmol/L Normal 0.5 - 2.2 mmol/L [facility] Potassium [Moles/Vol] 3.0 mmol/L Low 3.5 - 5.3 mmol /L [facility] Protein [Mass/Vol] 7.2 g/dL Normal 6.0 - 7.8 gm/dL [facility] Sodium [Moles/Vol] 133 mmol/L Low 135 - 145 mmol/L [facility] Remisol Troponin I.cardiac [Mass/Vol] 10.30 pg/mL Low 15.90 - 38.40 pg/mL [facility] Remisol Urea nitrogen [Mass/Vol] 7 mg/dL Normal 5 - 21 mg/dL [facility] Remisol Urea nitrogen/Creatinine [Mass ratio] 12 mg/mg Normal 10 - 20 [facility] Remisol CMPon 03-22-2023 Albumin [Mass/Vol] 2.5 g/dL Low 3.3-5.0 [facility] Comment on above: Performed By: #### 2 408034, 6961365, 24583295, 7178203, 7740512, 9131369, 95103743 ####[address] [place] [address] Albumin/Globulin (S) [Mass conc ratio] 0.5 Low 1.1-2.2 [facility] Comment on above: Performed By: #### 2 571070, 5022179, 75832475, 3847942, 5094895, 9696467, 41260286 ####[address] [place] [address] ALP [Catalytic activity/Vol] 158 Int._Unit/L High 21-98 [facility] Comment on above: Performed By: #### 2 599297, 9493927, 01199922, 4782142, 0696424, 1193549, 30953315 ####[facility] [address] [place] [address] ALT No additional P-5'-P [Catalytic activity/Vol] 50 Int._Unit/L High 6-46 [facility] Comment on above: Performed By: #### 2 865758, 1002507, 93818627, 7703064, 9974209, 7370090, 77272413 ####[address] [place] [address] AST [Catalytic activity/Vol] 80 Int._Unit/L High 5-43 [facility] Comment on above: Performed By: #### 2 352664, 1806691, 77679842, 6708681, 5819673, 2551863, 22071897 ####[facility] [address] [place] [address] Bilirubin [Mass/Vol] 8.1 mg/dL High 0.0-1.1 [facility] Comment on above: Performed By: #### 2 263938, 8380236, 57232092, 5598595, 8855946, 9216395, 11984017 ####[facility] [address] [place] [address] Creatinine [Mass/Vol] 0.6 mg/dL Normal 0.5-1.3 [facility] Comment on above: Performed By: #### 2 182585, 4214452, 60559581, 8366597, 9841885, 5394368, 61859290 ####[facility] [address] [place] [address] Globulin (S) [Mass/Vol] 4.7 g/dL High 1.4-4.0 [facility] Comment on above: Performed By: #### 2 307836, 4163410, 29252541, 7909230, 9389514, 5738937, 95240563 ####[facility] [address] [place] [address] Protein [Mass/Vol] 7.2 g/dL Normal 6.0-7.8 [facility] Comment on above: Performed By: #### 2 143235, 7312790, 68024790, 6857076, 3600901, 5130771, 08760885 ####[facility] [address] [place] [address] Urea nitrogen [Mass/Vol] 7 mg/dL Normal 5-21 [facility] Comment on above: Performed By: #### 2 753283, 2869985, 32323876, 9961443, 2468808, 5576982, 03590893 ####[facility] [address] [place] [address] Urea nitrogen/Creatinine [Mass ratio] 12 No Units Normal 10-20 [facility] Comment on above: Performed By: #### 2 691338, 5871697, 82141533, 6031750, 3071642, 7741755, 53733063 ####[facility] [address] [place] [address] Anion gap [Moles/Vol] 8 mmol/L Normal 6-16 [facility] Comment on above: Performed By: #### 2 562501, 6328332, 65505496, 8490657, 3988597, 0703416, 37388459 ####[facility] [address] [place] [address] Calcium [Mass/Vol] 8.2 mg/dL Low 8.9-11.1 [facility] Comment on above: Performed By: #### 2 763761, 5362825, 04670768, 8215079, 6588810, 8890190, 53465461 ####[facility] [address] [place] [address] Chloride [Moles/Vol] 103 mmol/L Normal 101-111 [facility] Comment on above: Performed By: #### 2 398323, 8224462, 07027842, 2611873, 4356313, 1609610, 84734281 ####[facility] [address] [place] [address] CO2 [Moles/Vol] 25 mmol/L Normal 21-31 [facility] Comment on above: Performed By: #### 2 524777, 0884515, 14125685, 8934470, 8064102, 1650730, 33105917 ####[facility] [address] [place] [address] Glucose [Mass/Vol] 146 mg/dL Normal 55-199 [facility] Comment on above: Result Comment: If t his glucose result represents a fasting glucose, interpretation should refer to the following reference range: 55-99 mg/dL Performed By: #### 2 078651, 3034237, 07167499, 1766765, 9079810, 0301646, 68929373 ####[facility] [address] [place] [address] Potassium [Moles/Vol] 3.0 mmol/L Low 3.5-5.3 [facility] Comment on above: Performed By: #### 2 714138, 2212760, 48488612, 6144040, 0807434, 7343237, 04862132 ####[facility] [address] [place] [address] Sodium [Moles/Vol] 133 mmol/L Low 135-145 [facility] Comment on above: Performed By: #### 2 353373, 5523230, 43427518, 6915945, 2249903, 2228126, 95363174 ####[facility] [address] [place] [address] COAGULATIONOrdered By: Mayuri Russell on 03-22-2023 aPTT Coag (PPP) [Time] 42.0 s High 25.1 - 36.5 second(s) [facility] Auto Coag INR Coag (PPP) [Relative time] 2.6 {INR} Invalid Interpretation Code [facility] Auto Coag PT Coag (PPP) [Time] 30.4 s High 9.4 - 1 2.5 second(s) [facility] Auto Coag Consent for Treatmenton 03-07 Consent for Treatment [id number] #1.00CD:127 Normal [facility] ED Clinical Summaryon 2022 ED Clinical Summary [address] [address] ED Clinical Summary Person Information Name: WILL ANDERSON [place] Age: 37 Years : 1985 Sex: Male Language: Mauritanian PCP: THEO BURKS Marital Status: Single Visit [...] 03/22/2023 21:57:13 03/22/2023 21:57:13 03/22/2023 21:57:13 ADDRESS: [address] [place] [address] [address] [facility] [id number] PHYS DOC NOTES: MEDICAL INFORMATION: Prescriptions Given: New Medications [id number], [address] [place], [place] [id number], [phone] ondansetron (Zofran ODT 4 mg Tab-Dis) 1 Tablets By Mouth every 8 hours as needed Nausea/Vomiting. Refills: 0. sulfamethoxazole-tri methoprim (Bactrim D.S. 800 mg-160 mg Tab) 1 Tablets By Mouth 2 times a day for 14 Days. Refills: 0. Medications to Continue with No Changes Other Medications clindamycin (clindamycin 150 mg Cap) 2 Capsules By Mouth 4 times a day. Refills: 0. PATIENT EDUCATION INFORMATION: Instructions: Cellulitis, Adult Follow up: With: Address: When: THEO BURKS In 3 days DIAGNOSIS: Cellulitis Normal [facility] ED Note-Physicianon 03-22-20 ED Note-Physician Basic [...] and Complexity of Problems Differential Diagnosis: [] [facility] Data External documents reviewed: [...] Nausea/Vomiting, # 20 tab(s), Refills(s) 0, Pharmacy: [id number], 170, cm, 03/22/23 20:14:00 EDT, Height/Length Dosing, [...] 03/22/23 20:19:00 EDT, Infuse over 61, minute(s) sulfamethoxazole-tri methoprim, 1 tab(s), Oral, BID for 14 day(s), 28 tab(s), Refill(s) 0, [id number], 170, cm, 03/22/23 20:14:00 EDT, Height/Length Dosing, 75.2, kg, 03/22/23 20:14:00 EDT, Weight Dosing sulfamethoxazole-tri methoprim, 1 tab(s), Tab, Oral, Once, Stop date [...] Allergies amoxicillin (more content not included)... Normal [facility] Comment on above: Result Comment: Elec [...] these instructions at home: Medicines ? Take jnle-bwr-uigntwc and prescription medicines only as told by [...] as antibiotic medicines or antihistamines. ? Take gkpr-bvg-miedahr and prescription medicines only as told by [...] provider. Document Revised: 06/05/2022 Document Reviewed: 06/05/2022 [employer] Patient Education ? 2022 [employer] Normal [facility] ED Patient Summaryon 023 ED Patient Summary [id number] Patient Discharge Instructions Person Information Name: WILL ANDERSON Age: 37 Years Arrival Date: 03/22/2023 19:35:03 Discharge Diagnosis: Cellulitis Primary Care Physician: THEO BURKS Provider Information Primary Provider: Martin Reese DO Advanced Decision Support Manager:None The exam and treatment you received in the Emergency Department were for an urgent problem and are not intended as complete care. It is important that you follow up with a doctor, nurse practitioner, or physician?s assistant director of nursing for ongoing care. If your symptoms become [...] opioids can be used to help relieve vvvdryen-dw-hcwnfa pain and are often prescribed following a [...] guidance from the Food and Drug Administration (www.fda.gov/Drugs/R esourcesForYou). ? Visit www.cdc.gov/drugover dose to learn about the risks of opioids abuse and overdose. ? If you believe you may be struggling with addiction, tell your health chronic care nurse and ask for guidance or call [facility] National Helpline at 1-632-971-PUOV. a Source: [place] Department of Health and Human Services/Center for Disease Control & Prevention [facility] (more content not included)... [facility] [facility] HEMATOLOGYOrdered By: SYSTEM SYSTEM on 03-22-2023 Basophils/100 WBC (Bld) 0.4 % Normal 0.0 - 2.0 % [facility]eAutoSS Basophils/Leukocytes Auto (Bld) [Pure # fraction] 0.0 E9/L Normal 0.0 - 0.2 E9/L [facility]AutoSS Eosinophils/100 WBC (Bld) 1.3 % Normal 0.0 - 8.0 % [facility]eAutoSS Eosinophils/Leukocyte s Auto (Bld) [Pure # fraction] 0.1 E9/L Normal 0.0 - 0.5 E9/L [facility] Lymphocytes/100 WBC (Bld) 14.6 % Normal 14.0 - 50.0 % [facility] HemeAutoSS Lymphocytes/Leukocyte s Auto (Bld) [Pure # fraction] 1.5 E9/L Normal 1.0 - 4.0 E9/L [facility]AutoSS Monocytes/100 WBC (Bld) 7.9 % Normal 4.0 - 14.0 % [facility]eAutoSS Monocytes/Leukocytes Auto (Bld) [Pure # fraction] 0.8 E9/L Normal 0.2 - 1.0 E9/L [facility]AutoSS Neutrophils/100 WBC (Bld) 75.8 % High 36.0 - 75.0 % [facility]eAutoSS Neutrophils/Leukocyte s Auto (Bld) [Pure # fraction] 7.7 E9/L High 2.0 - 7.5 E9/L [facility] HEMATOLOGYOrdered By: Greg Rincon on 03-22-2023 Erythrocyte distribution width (RBC) [Ratio] 15.4 % High 10.9 - 14.2 % [facility] Hematocrit (Bld) [Volume fraction] 30.1 % Low 37.7 - 49.0 % [facility] Hemoglobin (Bld) [Mass/Vol] 10.3 g/dL Low 13.5 - 17.5 gm/dL [facility] MCH (RBC) [Entitic mass] 34.1 pg High 27.0 - 34.0 pg [facility]eAutoSS MCHC (RBC) [Mass/Vol] 34.2 g/dL Normal 31.4 - 36.0 gm /dL [facility] MCV (RBC) [Entitic vol] 99.4 fL Normal 80.0 - 100.0 fL [facility] Platelet mean volume (Bld) [Entitic vol] 8.6 fL Normal 6.4 - 10.8 fL [facility] Platelets (Bld) [#/Vol] 87.0 E9/L Low 150.0 - 500.0 E9/L [facility] RBC (Bld) [#/Vol] 3.0 E12/L Low 4.3 - 5.9 E12/L [facility] WBC corrected for nucl RBC Auto (Bld) [#/Vol] 10.1 E9/L Normal 4.0 - 11.0 E9/L [facility] Lactic Acidon 03-22-2023 Lactate [Mass/Vol] 2.0 mmol/L Normal 0.5-2.2 [facility] Comment on above: Performed By: #### 2 [id number], [id number], [id number], 6968541, 4109855, 7392271, [id number] ####[facility] [address] [place] [address] PT & PTTon 03-22-2023 aPTT Coag (PPP) [Time] 42.0 second(s) High 25.1-36.5 [facility] Comment on above: Result Comment: Para [...] the same coagulation reagent and instrumentation as [facility]. Currently there are no coagulation studies available worldwide for children to 14 days, and no normal ranges. Heparin therapeutic range (represented by Anti-Factor Xa activity of 0.2 - 0.4 U/mL) corresponds to PTT of 56.6 - 109.0 sec. Performed By: #### 2 [id number], 7482340, 47908291, 8805408, 6657933, 5090658, [id number] #### [facility] [address] [place] [address] INR Coag (PPP) [Relative time] 2.6 {INR} Invalid Interpretation Code [facility] Comment on above: Result Comment: INR results are specifically intended to assess patients stabilized on long-term Anticoagulation therapy suggested INR?s ?Less Intensive Anticoagulation? 2.0 ? 3.0 Conventional Range 3.0 ? 4.5 Performed By: #### 2 121290, 2388535, 82525503, 6113850, 8717451, 6937012, [id number] #### [facility] [address] [place] [address] PT Coag (PPP) [Time] 30.4 second(s) High 9.4-12.5 [facility] Comment on above: Result Comment: 15 [...] the same coagulation reagent and instrumentation as [facility]. Currently there are no coagulation studies available worldwide for children to 14 days, and no normal ranges. Performed By: #### 2 772437, 5920208, 18322537, 8262847, 3556344, 7473281, [id number] #### [facility] [address] [place] [address] Troponinon 03-22-2023 Troponin I.cardiac [Mass/Vol] 10.30 pg/mL Low 15.90-38.40 [facility] Comment on above: Result Comment: The 95% CI (Confidence Interval) PPV (Positive Predictive Value) for myocardial infarction in females is 38 pg/mL, in males 51 pg/mL. The results should be used in conjunction with clinical conditions of myocardial infarction. (Access High Sensitivity Troponin I Instructions For Use, Sunny Latrice, April 2018) Performed By: #### 2 479992, 7728496, 31517446, 7736033, 9547302, 4408002, [id number] ####[facility] [address] [place] [address] eGFRon 03-22-2023 GFR/1.73 sq M.predicted among non-blacks MDRD (S/P/Bld) [Vol rate/Area] 127 mL/min/1.73 m2 Normal >=59 [facility] Comment on above: Order Comment: Order added by Discern Expert. Result Comment: Body Masker antonio kidney disease could be indicated at eGFR's of less than 60 mL/min/1.73m2. Kidney failure is indicated at less than 15 mL/min/1.73m2. Performed By: #### 2 737034, 0364685, 96164906, 7412923, 0187956, 9029116, 01157954 ####[facility] [address] [place] [address] Consent for Procedure/Surger yon 03-18-2023 Consent for Procedure/Surgery [id number]#1.00CD:127 [facility] Consent for Treatmenton 03-07 Consent for Treatment [id number] #1.00CD:127 Normal [facility] Multi-Wound Charton 03-16-20 Multi-Wound Chart [id number] 1#1.00CD:127 Normal [facility] Nursing Assessment - Woundon 03-16-2023 Nursing Assessment - Wound [id number] 4#1.00CD:127 Normal [facility] Nursing Note - Woundon 03-16 Nursing Note - Wound [id number] 0 [id number] 4#1.00CD:127 Normal [facility] Physician Orderon 03-16-2023 Physician Order [id number] 1#1.00CD:127 Normal [facility] Procedure - Woundon 03-16-20 Procedure - Wound [id number] 4#1.00CD:127 [facility] Consent for Procedure/Surger yon 03-06-2023 Consent for Procedure/Surgery [id number] #1.00CD:127 [facility] Consent to Photographon 06-3 Consent to Photograph [id number] #1.00CD:127 [facility] Correspondence - Woundon Correspondence - Wound [id number] #1.00CD:127 [facility] Correspondence - Wound [id number] #1.00CD:127 [facility] Nursing Assessment - Woundon 03-06-2023 Nursing Assessment - Wound [id number] #1.00CD:127 [facility] Telephone Encounteron 2022 [employer] Authentication Interface Message Text A prior authorization has been started for Lidocaine 5% patch PA status can be found under the prescription order in the Medication Tab. History or status of the PA can also be found in Chart Review under Referral tab. Normal [employer] Consent for Treatmenton 02-06 Consent for Treatment [id number] #1.00CD:127 [facility] Multi-Wound Charton 03-05-20 Multi-Wound Chart [id number] #1.00CD:127 [facility] Nursing Assessment - Woundon 03-05-2023 Nursing Assessment - Wound [id number] #1.00CD:127 [facility] Nursing Note - Woundon 03-05 Nursing Note - Wound [id number] 0 [id number] #1.00CD:127 [facility] Physician Orderon 03-05-2023 Physician Order [id number] #1.00CD:127 [facility] Procedure - Woundon 03-05-20 Procedure - Wound [id number] #1.00CD:127 Normal [facility] Progress Note - Woundon - Progress Note - Wound [id number] #1.00CD:127 Normal [facility] Progress Noteson 02-27-2023 [employer] Authentication Interface Message Text This encounter was opened in error. Patient was a No-Show. Please disregard. Normal [facility] [employer] [facility] Telephone Encounteron 2022 [employer] Authentication Interface Message Text Pt had video visit scheduled. Link sent to him, but he never checked in. Normal [facility] [employer] Authentication Interface Message Text Called the patient Reminded him of his video visit this ThursdayMarch 03 with Lindsey Mahmood Pt concerned about his leg, he will send a picture to My Chart To his provider Concerned about his infection Notified Lindsey Mahmood Normal [facility] [employer] [facility] [employer] Authentication Interface Message Text What is the need: call back Situation: Pt states that the doctors office called him stating that they were running behind but he never got a phone call. Please advise Background: Please contact and advise Assessment: Pt contact info is Phone numbers Recommendation: n/a Thank you Normal [facility] [employer] Telephone Encounteron 2022 [employer] Authentication Interface Message Text NB ~~thank you ~~K Normal [facility] [employer] Authentication Interface Message Text Called the patient Leg is not getting worse Getting a little better Concerned he is on the wrong antibiotic Scheduled for a video visit with Dr Winter partner Lindsey Mahmood for tomorrow @ 1140am Normal [facility] [employer] Authentication Interface Message Text PLEASE SEE MY CHART ENCOUTNER CLOSING THIS ENCOUTNER Normal [facility] [employer] Authentication Interface Message Text We should probably call and advise urgent care if we can't get him in. Maybe try to schedule with someone next week? Normal [facility] [facility] Telephone Encounteron 2022 [employer] Authentication Interface Message Text Patient was identified by name and date of . EMILY COTO, IRENA Called patient to triage in [facility] messagehe states he is taking water pills [...] see any appointments until late next week. [employer] message: Will Ramo to Theo Burks MD 02/25/23 9:43 AM [...] walk. Help please. Theo Burks MD to [facility] 02/25/23 2:30 PM Please call patient and triage. If pain is severe and cannot walk recommend follow up in ED. If some improvement, please have him come in for same day or next day appointment. Normal [facility] [employer] [facility] Consent for Treatmenton 02-05 Consent for Treatment [id number] #1.00CD:127 Normal [facility] Discharge Instructionson Discharge Instructions [id number] #1.00CD:127 Normal [facility] ED Clinical Summaryon 2022 ED Clinical Summary [place] [id number] ED Clinical Summary Person Information Name: WILL ANDERSON [facility] Age: 37 Years : 1985 Sex: Male Language: Mauritanian PCP: THEO BURKS Marital Status: Single Visit [...] 02/18/2023 09:31:38 02/18/2023 09:31:38 02/18/2023 09:31:38 ADDRESS: [address] [place] [address] [address] [facility] [phone] PHYS DOC NOTES: MEDICAL INFORMATION: Prescriptions Given: New Medications [id number], [address], [place] [id number], [phone] oxycodone (oxyCODONE 5 mg Cap) 1 Capsules By Mouth every 6 hours as needed for pain for 3 Days. Refills: 0. Medications to Continue Taking That Have Changed [id number], [address], [place] [id number], [phone] START: clindamycin (clindamycin 300 mg oral cap) 1 Capsules By Mouth every 6 hours for 7 Days. Refills: 0. Other Medications START: clindamycin (clindamycin 150 mg Cap) 2 Capsules By Mouth 4 times a day. Refills: 0. PATIENT EDUCATION INFORMATION: Instructions: RICE Therapy for Routine Care of Injuries, Llrl-oh-Ndnl; Musculoskeletal Pain; Pain Without a Known Cause; Cellulitis, Adult, Qhar-ou-Vidu Follow up: With: Address: When: THEO BURKS In 3 days 02/21/2023 Comments: Follow-up with your primary care provider in 3 to 5 days. If symptoms worsen, do not improve, or new symptoms arise please report back to emergency department for further evaluation. DIAGNOSIS: Cellulitis of right leg; Right leg pain Normal [facility] ED Note-Physicianon 02-19-20 ED Note-Physician Basic Information Time Seen: Omid [...] and Complexity of Problems Differential Diagnosis: [] [facility] Data External documents reviewed: [...] 28 cap(s), Refills(s) 0, [facility]: [id number], 170, cm, 02/18/23 7:51:00 EDT, Height/Length Dosing, 77, kg, 02/18/23 7:51:00 EDT, Weight Dosing ibuprofen, 800 mg = 1 tab(s), Tab, Oral, Once, Stop date 02/18/23 8:22:00 EDT, STAT, Start date 02/18/23 8:22:00 EDT, 02/18/23 8:22:00 EDT oxycodone, 5 mg = 1 tab(s), Tab, Oral, Once, Stop date 02/18/23 8:22:00 E (more content not included)... Normal [facility] Comment on above: Result Comment: Elec [...] these instructions at home: Medicines ? Take lrsh-mmj-leltebt and prescription medicines only as told by [...] provider. Document Revised: 06/05/2022 Document Reviewed: 06/05/2022 [employer] Patient Education ? 2022 [facility]. Orthopedics RICE Therapy for Routine Care of [...] bag. ? (more content not included)... Normal [facility] ED Patient Summaryon 023 ED Patient Summary [place] [id number] Patient Discharge Instructions Person Information Name: WILL ANDERSON Age: 37 Years Arrival Date: 02/18/2023 07:40:40 Discharge Diagnosis: Cellulitis of right leg; Right leg pain Primary Care Physician: THEO BURKS Provider Information Primary Provider: Brent Sanches DO Advanced Decision Support Manager:None The exam and treatment you received in the Emergency Department were for an urgent problem and are not intended as complete care. It is important that you follow up with a doctor, nurse practitioner, or physician?s assistant director of nursing for ongoing care. If your symptoms become [...] RICE Therapy for Routine Care of Injuries, Cpbi-fv-Mohw; Musculoskeletal Pain; Pain Without a Known Cause; Cellulitis, Adult, Rtri-na-Knlz A MESSAGE TO ALL PATIENTS REGARDING OPIOIDS PRESCRIPTION OPIOIDS: WHAT YOU NEED TO KNOW Prescription opioids can be used to help relieve qfyzflbw-qq-yshags pain and are often prescribed following a [...] guidance from the Food and Drug Administration (www.fda.gov/Drugs/R esourcesForYou). ? Visit www.cdc.gov/drugover dose t (more content not included)... Normal [facility] LE Venous Duplex Righton 02-18-2023 LE [...] M.D. Transcribed by: JUNIOR Technologist: TANIKA Razo [facility] Telephone Encounteron 2022 [employer] Authentication Interface Message Text Last written 10/27/22 Normal [facility] [employer] [facility] XA HEPATIC VENOGRAM W/ HEMOD YN (CHRISTIANO)on 01-21-2023 XA HEPATIC VENOGRAM W/ HEMODYN (CHRISTIANO) EXAMINATION: XA TRANSJUGULAR LIVER BIOPSY (CHRISTIANO), XA HEPATIC VENOGRAM W/ HEMODYN (CHRISTIANO) 01/20/2023 10:46 AM CLINICAL HISTORY: Rad Procedure required: = Transjugular liver biopsy with portal pressure measurements,Suspect ed liver fibrosis ASSOCIATED DIAGNOSIS: Alcoholic fatty liver Hyperbilirubinemia Alcoholic hepatitis, unspecified whether ascites present ORDERING PROVIDER: HALEY GARY TECHNOLOGISTS NOTE: Right atrium: 14, pre hepatic: 18, wedged hepatic: 32. Moderate sedation intraservice time 6926-6803 FLUOROSCOPIST: ERICA ROCK TIME: 41.6 Minutes ATTENDING PHYSICIAN: Erica Rock RESIDENT/FELLOW PHYSICIAN: Brayan Babin INTRA-PROCEDURE MEDS: iohexol (OMNIPAQUE) 350 MG/ML injection 40 mL Route: Other SEDATION TIME: Start time: 827 Stop time: 1015 INFORMED CONSENT: Written informed [...] microaccess catheter under fluoroscopic guidance. A 10 Greenlandic curved tip renal vein sheath was then advanced over the wire into the right atrium. The obturator was removed and a 5 Greenlandic MPB catheter was used to select the [...] vein was again selected with a 5 Greenlandic MPB catheter which was then exchanged over an Amplatz wire for the 10 Greenlandic venous sheath. This was repeated several times for attempted transvenous liver biopsy through the right hepatic vein; however, the 10 Greenlandic sheath withdrew during attempted advancement of the biopsy catheter. The 10 Greenlandic venous sheath was then withdrawn into the intrahepatic IVC. The middle hepatic vein was selected with the same 5 Greenlandic catheter which was then exchanged over an Amplatz wire for the 10 Greenlandic venous sheath. The 10 Greenlandic transvenous biopsy catheter was then advanced into the middle hepatic venous sheath and deployed twice for liver biopsy. The transvenous biopsy catheter and a 10 Greenlandic venous sheath were removed. Satisfactory hemostasis was [...] increased portosystemic gradient. MACRO: None Normal [facility] [employer] XA TRANSJUGULAR LIVER BIOPSY (CHRISTIANO)on 01-21-2023 XA TRANSJUGULAR LIVER BIOPSY (CHRISTIANO) EXAMINATION: XA TRANSJUGULAR LIVER BIOPSY (CHRISTIANO), XA HEPATIC VENOGRAM W/ HEMODYN (CHRISTIANO) 01/20/2023 10:46 AM CLINICAL HISTORY: Rad Procedure required: = Transjugular liver biopsy with portal pressure measurements,Suspect ed liver fibrosis ASSOCIATED DIAGNOSIS: Alcoholic fatty liver Hyperbilirubinemia Alcoholic hepatitis, unspecified whether ascites present ORDERING PROVIDER: HALEY GARY TECHNOLOGISTS NOTE: Right atrium: 14, pre hepatic: 18, wedged hepatic: 32. Moderate sedation intraservice time [id number] FLUOROSCOPIST: ERICA ROCK TIME: 41.6 Minutes ATTENDING [...] microaccess catheter under fluoroscopic guidance. A 10 Greenlandic curved tip renal vein sheath was then advanced over the wire into the right atrium. The obturator was removed and a 5 Greenlandic MPB catheter was used to select the [...] vein was again selected with a 5 Greenlandic MPB catheter which was then exchanged over an Amplatz wire for the 10 Greenlandic venous sheath. This was repeated several times for attempted transvenous liver biopsy through the right hepatic vein; however, the 10 Greenlandic sheath withdrew during attempted advancement of the biopsy catheter. The 10 Greenlandic venous sheath was then withdrawn into the intrahepatic IVC. The middle hepatic vein was selected with the same 5 Greenlandic catheter which was then exchanged over an Amplatz wire for the 10 Greenlandic venous sheath. The 10 Greenlandic transvenous biopsy catheter was then advanced into the middle hepatic venous sheath and deployed twice for liver biopsy. The transvenous biopsy catheter and a 10 Greenlandic venous sheath were removed. Satisfactory hemostasis was [...] increased portosystemic gradient. MACRO: None Normal [facility] PROTHROMBIN TIME AND INRon 0 01-20-2023 INR Coag (PPP) [Relative time] 2.49 {INR} High 0.90-1.10 [facility] [employer] [facility] Comment on above: Performed By: #### H [facility] #### [facility] [address] [place] [address] [place], [place] PT Coag (PPP) [Time] 27.9 s High 9.7-12.9 [facility] [facility] Comment on above: Performed By: #### H [facility] #### [facility] [address] [place] [address] [place], [place] BASIC METABOLIC PANELon 05-0 Anion gap [Moles/Vol] 12 mmol/L Normal 10-20 [facility] Comment on above: Performed By: #### C BC #### [facility] [address] [place] [address], Calcium [Mass/Vol] 8.3 mg/dL Low 8.4-10.4 [facility] [employer] [facility] Comment on above: Performed By: #### C BC #### S [facility] [address] [place] [address], Chloride [Moles/Vol] 105 mmol/L Normal 97-111 [facility] [employer] [facility] Comment on above: Performed By: #### C BC #### [facility] [address] [place] [address], CO2 [Moles/Vol] 26 mmol/L Normal 21-30 [facility] Comment on above: Performed By: #### C BC #### [facility] [address] [place] [address], Creatinine [Mass/Vol] 0.60 mg/dL Low 0.80-1.30 [facility] Comment on above: Performed By: #### C BC #### [facility] [address] [place] [address], ESTIMATED GFR (CKD-EPI) 127 mL/min/1.73sqm Normal >=60 [facility] Comment on above: Result Comment: 2020 CKD EPI Equation using Creatinine without Race Comment: Estimated glomerular filtration rate (eGFR) is calculated without a race coefficient. Values should be interpreted in the context of the patient's full clinical presentation. Reference: 1. Fran Nicholson, Akhil M, [place] SAGASTUME, et al.. A Unifying Approach for GFR Estimation: Recommendations of the NKF-ASN Task Force on Reassessing the Inclusion of Race in Diagnosing Kidney Disease. [place]oan Journal of Kidney Diseases 2021;79(2):268-88.e1. 2. N Engl J Med 2020 Vol. 385 Issue 19 Pages 2413-3052 Performed By: #### C BC #### [facility] [address] [place] [address], Glucose [Mass/Vol] 82 mg/dL Normal [facility] Comment on above: Performed By: #### C BC #### [facility] [address] [place] [address], Performed By: #### G ENTEST #### [facility] [address] [place] [address], Potassium [Moles/Vol] 3.5 mmol/L Normal 3.3-5.3 [facility] Comment on above: Performed By: #### C BC #### [facility] [address] [place] [address], Sodium [Moles/Vol] 139 mmol/L Normal 135-148 [facility] Comment on above: Performed By: #### C BC #### [facility] [address] [place] [address], Urea nitrogen [Mass/Vol] 4 mg/dL Low 8-22 [facility] Comment on above: Performed By: #### C BC #### [facility] [address] [place], [place], Basic metabolic 2000 panelon 01-12-2023 Anion gap [...] (S/P/Bld) [Vol rate/Area] 127 mL/min/{1.73_m2} - PINF [facility] Comment on above: 2020 CKD EPI [...] Inclusion of Race in Diagnosing Kidney Disease. [place]an Journal of Kidney Diseases 202;79(2):268-88.e1. 2. N Engl J Med 2020 Vol. 385 Issue 19 Pages 4308-2358 Glucose [Mass/Vol] 82 mg/dL 68 - 110 mg/dL [facility] Potassium [Moles/Vol] 3.5 mmol/L 3.3 - 5.3 mmol /L [facility] Sodium [Moles/Vol] 139 mmol/L 135 - 148 mmol/L [facility] Urea nitrogen [Mass/Vol] 4 mg/dL Low 8 - 22 mg/dL [facility] C-PEPTIDE, SERUMon C peptide [Mass/Vol] 3.52 ng/mL 0.81 - 3.85 ng/ mL [facility] Interpretation and review of laboratory results Normal [facility] CPEP 3.52 ng/mL Normal 0.81-3.85 The [facility] Comment on above: Performed By: #### C BC #### [facility] [address] [place] [address], CBC panel Auto (Bld)on 01-12 Erythrocyte distribution width (RBC) [Ratio] 15.7 % High 11.5 - 14.5 % [facility] Hematocrit (Bld) [Volume fraction] 35.4 % Low 41.0 - 53.0 % [facility] Hemoglobin (Bld) [Mass/Vol] 12.1 g/dL Low 13.9 - 16.3 g/dL [facility] Interpretation and review of laboratory results Abnormal [facility] MCH (RBC) [Entitic mass] 36.7 pg High 26.0 - 34.0 pg [facility] MCHC (RBC) [Mass/Vol] 34.3 g/dL 32.0 - 35.9 g/ dL [facility] MCV (RBC) [Entitic vol] 107 fL High 80 - 100 fL [facility] Platelet mean volume (Bld) [Entitic vol] 8.3 fL 7.5 - 11.2 fL [facility] Platelets (Bld) [#/Vol] 110 10*3/uL Low 150 - 400 K/uL [facility] RBC (Bld) [#/Vol] 3.31 10*6/uL Low [facility] WBC (Bld) [#/Vol] 6.6 10*3/uL 4.5 - 11.5 K/uL [facility] COMPLETE BLOOD COUNTon 01-12 Erythrocyte distribution width (RBC) [Ratio] 15.7 % High 11.5-14.5 [facility] Comment on above: Performed By: #### C BC #### [facility] [address], [place], Hematocrit (Bld) [Volume fraction] 35.4 % Low 41.0-53.0 [facility] Comment on above: Performed By: #### C BC #### [facility] [address], [place], Hemoglobin (Bld) [Mass/Vol] 12.1 g/dL Low 13.9-16.3 [facility] Comment on above: Performed By: #### C BC #### [facility] [address], [place], MCH (RBC) [Entitic mass] 36.7 pg High 26.0-34.0 [facility] Comment on above: Performed By: #### C BC #### [facility] [address], [place], MCHC (RBC) [Mass/Vol] 34.3 g/dL Normal 32.0-35.9 [facility] Comment on above: Performed By: #### C BC #### [facility] [address], [place], MCV (RBC) [Entitic vol] 107 fL High 80-100 [facility] Comment on above: Performed By: #### C BC #### [facility] [address], [place], Platelet mean volume (Bld) [Entitic vol] 8.3 fL Normal 7.5-11.2 [facility] Comment on above: Performed By: #### C BC #### [facility] [address], [place], Platelets (Bld) [#/Vol] 110 10*3/uL Low 150-400 [facility] Comment on above: Performed By: #### C BC #### [facility] [address], [place], RBC (Bld) [#/Vol] 3.31 10*6/uL Low 4.50-5.90 [facility] Comment on above: Performed By: #### C BC #### [facility] [address], [place], WBC (Bld) [#/Vol] 6.6 10*3/uL Normal 4.5-11.5 [facility] Comment on above: Performed By: #### C BC #### [facility] [address], [place], Diabetes tracking panelOrder ed By: Moi Christianson on 01-12-2023 Average glucose Estimated from glycated hemoglobin (Bld) [Mass/Vol] 82 mg/dL [facility] HbA1c (Bld) [Mass fraction] 4.5 % 4.0 - 5.6 % [facility] HEMOGLOBIN A1Con 01-12-2023 HbA1c (Bld) [Mass fraction] 4.5 % Normal 4.0-5.6 [facility] Comment on above: Performed By: #### G ENTEST #### S [facility] [address] [place] [address], HEPATIC FUNCTION PANELon Albumin [Mass/Vol] 3.2 g/dL Low 3.4-5.1 [facility] Comment on above: Performed By: #### G ENTEST #### [facility] [address] [place] [address], ALK 336 IU/L High 40-200 [facility] Comment on above: Performed By: #### Earline ENTEST #### [facility] [address] [place] [address], ALT [Catalytic activity/Vol] 43 U/L High 7-40 [facility] Comment on above: Performed By: #### G ENTEST #### [facility] [address] [place] [address], AST [Catalytic activity/Vol] 73 U/L High 7-40 [facility] Comment on above: Performed By: #### G ENTEST #### [facility] [address] [place] [address], Bilirubin [Mass/Vol] 8.2 mg/dL High 0.1-1.5 [facility] Comment on above: Performed By: #### G ENTEST #### S [facility] [address] [place] [address], Bilirubin.direct [Mass/Vol] 2.28 mg/dL High 0.10-0.30 [facility] Comment on above: Performed By: #### G ENTEST #### [facility] [address] [place] [address], Protein [Mass/Vol] 7.9 g/dL Normal 6.2-8.3 [facility] Comment on above: Performed By: #### G ENTEST #### [facility] [address] [place] [address], Albumin [Mass/Vol] 3.2 g/dL Low 3.4 - 5.1 g/dL [facility] ALP [Catalytic activity/Vol] 336 U/L High [facility] ALT [Catalytic activity/Vol] 43 U/L High [facility] AST [Catalytic activity/Vol] 73 U/L High [facility] Bilirubin [Mass/Vol] 8.2 mg/dL High 0.1 - 1.5 mg/dL [facility] Bilirubin.direct [Mass/Vol] 2.28 mg/dL High 0.10 - 0.30 mg/dL [facility] Protein [Mass/Vol] 7.9 g/dL 6.2 - 8.3 g/dL [facility] INSULINon 01-12-2023 Insulin Free Qn 38.9 High [facility] Interpretation and review of laboratory results Abnormal [facility] INSUL 38.9 mIU/L High 2.0-25.0 [facility] Comment on above: Performed By: #### C BC #### [facility] [address] [place] [address], No Panel Informationon 01-12 Interpretation and review of laboratory results Abnormal [facility] PROTHROMBIN TIME AND INRon 0 01-12-2023 INR Coag (PPP) [Relative time] 1.87 {INR} High 0.90-1.10 [facility] Comment on above: Performed By: #### Earline ENTEST #### [facility] [address] [place] [address], PT Coag (PPP) [Time] 21.0 s High 9.7-12.9 [facility] Comment on above: Performed By: #### G ENTEST #### S [facility] [address] [place] [address], INR Coag (PPP) [Relative time] 1.87 {INR} High 0.90 - 1.10 [facility] Interpretation and review of laboratory results Abnormal [facility] PT Coag (PPP) [Time] 21.0 s High [facility] Progress Noteson 01-12-2023 [employer] Authentication Interface Message Text Labs drawn peripherally from right forearm. Normal [facility] [employer] [facility] [employer] Authentication Interface Message Text Hematology AND Oncology Clinic Note Reason for Consult: Hemolytic anemia Alcoholic cirrhosis Thrombocytopenia Long-term steroid use Referring Provider: Afua Umanzor MD Chief Complaint Patient presents with AIHA on MMF syncopal episodes due to hypoglycemia History of Present Illness Will Anderson is [...] and headaches. Endo/Heme/Allergies: Does not bruise/bleed easily. Psychiatric/Behavior al: Negative for depression, substance abuse and suicidal ideas. The patient is not nervous/anxious and does not have insomnia. 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 10 Tablet 0 sulfamethoxazole-tri methoprim 800-160 MG (Bactrim DS) 800-160 MG per [...] angela (more content not included)... Normal [facility] [employer] [facility] [employer] Authentication Interface Message Text Patient was identified [...] 100 %. Gustabo Isaak Pittman Normal [facility] [employer] [facility] [employer] Authentication Interface Message Text Patient was identified by name and date of . April Jewell Patient at risk for falls:No Falls Risk protocol implemented: No Normal The [employer] Interface Message Text Attestation signed by Haley [...] Gary MD Division of Gastroenterology AND Hepatology [facility] Department of Gastroenterology and Hepatology Hepatology [...] Tablet by mouth daily. 10 Tablet 0 sulfamethoxazole-tri methoprim 800-160 MG (Bactrim DS) 800-160 MG per [...] before breakfast). 28 Capsule 1 No current facility-administere d medications for this visit. (more content not included)... Normal [facility] Patient Instructionson 12-16 [employer] Authentication Interface Message Text [facility] Family Medicine [phone] [address] [id number] Lab tests can be done at a scheduled visit, or by appointment. [facility] [phone] [place] [address] Park in the [facility] (P[address]) Under the [facility]. Pathology is located in the Special[facility] of the [facility]patient [facility] on the 2nd floor. Please fill out the paper form at the front facer then have a seat in the Outpatient Blood Draw Lab (Pathology) waiting area. Hours Thursday 07:00 AM - 05:30 PM Thursday 07:00 AM - 05:30 PM Thursday 07:00 AM - 05:30 PM 07:00 AM - 05:30 PM Thursday 07:00 AM - 05:30 PM [facility] [phone] [place] [address] Follow the overhead sign to [place]: Radiology/X-ray AND Lab (right arrow). Check in for testing at the Radiology AND Lab Account Resolution Analyst window. Hours Thursday 10:00 AM - 02:00 PM Thursday 08:00 AM - 07:30 PM Thursday 08:00 AM - 07:30 PM Thursday 08:00 AM - 07:30 PM 08:00 AM - 07:30 PM Thursday 08:00 AM - 07:30 PM Thursday 08:00 AM - 04:00 PM [facility] [phone] [place] [address] [place] at the front facer and you will be directed to the waiting area. Laboratory staff will take you back to the laboratory. Hours Thursday 10:00 AM - 02:00 PM Thursday 07:30 AM - 07:30 PM Thursday 07:30 AM - 07:30 PM Thursday 07:30 AM - 07:30 PM 07:30 AM - 07:30 PM Thursday 07:15 AM - 07:45 PM Thursday 08:00 AM - 04:00 PM [facility] [phone] [place], [place] [id number] Enter through the front door and continue [...] PM Thursday 08:00 AM - 04:00 PM [facility] [phone] [place], [place] [id number] The [facility] is located on the first [...] PM Thursday 07:30 AM - 05:00 PM [facility] [phone] [place], [place] [id number] The [facility] is located on the first floor, room [id number]. Enter through the Emergency doors and follow the signs to Medical Offices , making a right turn. [place] at the Registration 1A desk at the end of the hallway, then proceed to the Laboratory on the right. Hours Thursday 07:30 AM - 05:00 PM Thursday 07:30 AM - 05:00 PM Thursday 07:30 AM - 05:00 PM 07:30 AM - 05:00 PM Thursday 07:30 AM - 05:00 PM [facility] [phone] [place] [address] The [facility] is located on the first [...] 08:00 AM - 05:00 PM Normal [facility] Progress Noteson 12-16-2022 [employer] Authentication Interface Message Text Chief Complaint: Will [...] no previous surgical history on file. Diagnostics: [facility] laboratory/diagnosti cs reviewed and Outside laboratory/diagnosti cs reviewed Review of Systems As per HPI [...] on file. Dejuan Lechuga MD Normal [facility] [facility] [employer] Authentication Interface Message Text Patient was identified by name and date of . Aleja Rolon Normal [facility] [facility] Progress Noteson 12-15-2022 [employer] Authentication Interface Message Text [facility] Telemedicine Visit CC: Chief Complaint Patient presents [...] surgical history personally reviewed and updated in [place]. OBJECTIVE: Sounds ewll, no acute distress Breathing comfrotably on room air ASSESSMENT AND PLAN: 1. Rib pain Orders AND Meds Signed During This Encounter X-ray Ribs Left Unilateral (Routine) lidocaine (LIDODERM) 5 % patch Documentation: Mode: Telephone Patient Patient Work Phone: Patient Cell Preferred phone: [phone] Consent: I confirmed patient understanding of the [...] Theo Burks MD Family Medicine Normal [facility] Telephone Encounteron 2022 [employer] Authentication Interface Message Text Called patient and made appointment with tomorrow Normal [facility] Telephone Encounteron 2022 [employer] Authentication Interface Message Text Called patient and made appointment Normal [facility] ALPHA FETOPROTEIN TUMOR ANDRIA Jeri 11-13-2022 AFP 4.4 ng/mL Normal <=8.4 [facility] Comment on above: Performed By: #### H EMO DNA #### [facility] [address] [facility] [place], [place] AFP 4.4 ng/mL NINF - 8.4 ng/mL [facility] Interpretation and review of laboratory results Normal [facility] BASIC METABOLIC PANELon Anion gap [Moles/Vol] 10 mmol/L Normal 10-20 [facility] Comment on above: Performed By: #### H EMO DNA #### [facility] [address] [facility] [place], [place] Calcium [Mass/Vol] 8.7 mg/dL Normal 8.4-10.4 [facility] Comment on above: Performed By: #### H EMO DNA #### [facility] [address] [facility] [place], [place] Chloride [Moles/Vol] 102 mmol/L Normal 97-111 [facility] Comment on above: Performed By: #### H EMO DNA #### [facility] [address] [facility] [place], [place] CO2 [Moles/Vol] 30 mmol/L Normal 21-30 [facility] Comment on above: Performed By: #### H EMO DNA #### [facility] [address] [facility] [place], [place] Creatinine [Mass/Vol] 0.50 mg/dL Low 0.80-1.30 [facility] Comment on above: Performed By: #### H EMO DNA #### [facility] [address] [facility] [place], [place] ESTIMATED GFR (CKD-EPI) 134 mL/min/1.73sqm Normal >=60 [facility] Comment on above: Result Comment: 2020 [...] Inclusion of Race in Diagnosing Kidney Disease. Samoan Journal of Kidney Diseases 202;79(2):268-88.e1. 2. N Engl J Med 2020 Vol. 385 Issue 19 Pages [phone] Performed By: #### H EMO DNA #### [facility] [address] [facility] [place], [place] Glucose [Mass/Vol] 70 mg/dL Normal 68-110 [facility] Comment on above: Performed By: #### H EMO DNA #### [facility] [address] [facility] [place], [place] Potassium [Moles/Vol] 3.1 mmol/L Low 3.3-5.3 [facility] Comment on above: Performed By: #### H EMO DNA #### [facility] [address] [facility] [place], [place] Sodium [Moles/Vol] 139 mmol/L Normal 135-148 [facility] Comment on above: Performed By: #### H EMO DNA #### [facility] [address] [facility] [place], [place] Urea nitrogen [Mass/Vol] 5 mg/dL Low 8-22 [facility] Comment on above: Performed By: #### H EMO DNA #### [facility] [address] [facility] [place], [place] Basic metabolic 2000 panelon 11-13-2022 Anion gap [Moles/Vol] 10 mmol/L 10 - 20 [facility] Calcium [Mass/Vol] 8.7 mg/dL 8.4 - 10.4 mg/dL [facility] Chloride [Moles/Vol] 102 mmol/L 97 - 111 mmol/L [facility] CO2 [Moles/Vol] 30 mmol/L 21 - 30 mmol/L [facility] Creatinine [Mass/Vol] 0.50 mg/dL Low 0.80 - 1.30 mg /dL [facility] GFR/1.73 sq M.predicted MDRD (S/P/Bld) [Vol rate/Area] 134 mL/min/{1.73_m2} - PINF [facility] Comment on above: 2020 CKD EPI [...] Inclusion of Race in Diagnosing Kidney Disease. [place]an Journal of Kidney Diseases 2021;79(2):268-88.e1. 2. N Engl J Med 2020 Vol. 385 Issue 19 Pages 8213-3509 Glucose [Mass/Vol] 70 mg/dL 68 - 110 mg/dL [facility] Potassium [Moles/Vol] 3.1 mmol/L Low 3.3 - 5.3 mmol /L [facility] Sodium [Moles/Vol] 139 mmol/L 135 - 148 mmol/L [facility] Urea nitrogen [Mass/Vol] 5 mg/dL Low 8 - 22 mg/dL [facility] CBC WITH DIFFERENTIALon 03-0 Basophils (Bld) [#/Vol] 0.04 10*3/uL Normal 0.00-0.20 [facility] Comment on above: Performed By: #### D AT #### [facility] [address] [place] [address], Basophils/100 WBC (Bld) 0.6 % Normal <=1.9 [facility] Comment on above: Performed By: #### D AT #### [facility] [address] [place] [address], Eosinophils (Bld) [#/Vol] 0.21 10*3/uL Normal 0.00-0.70 [facility] Comment on above: Performed By: #### D AT #### [facility] [address] [place] [address], Eosinophils/100 WBC (Bld) 3.6 % Normal 0.1-4.0 [facility] Comment on above: Performed By: #### D AT #### [facility] [address] [place] [address], Erythrocyte distribution width (RBC) [Ratio] 15.8 % High 11.5-14.5 [facility] Comment on above: Performed By: #### D AT #### [facility] [address] [place] [address], Hematocrit (Bld) [Volume fraction] 29.4 % Low 41.0-53.0 [facility] Comment on above: Performed By: #### D AT #### [facility] [address] [place] [address], Hemoglobin (Bld) [Mass/Vol] 10.4 g/dL Low 13.9-16.3 [facility] Comment on above: Performed By: #### D AT #### [facility] [address] [place] [address], Lymphocytes (Bld) [#/Vol] 1.21 10*3/uL Normal 1.00-4.80 [facility] Comment on above: Performed By: #### D AT #### [facility] [address] [place] [address], Lymphocytes/100 WBC (Bld) 21.2 % Low 24.0-44.0 [facility] Comment on above: Performed By: #### D AT #### [facility] [address] [place] [address], MCH (RBC) [Entitic mass] 38.5 pg High 26.0-34.0 [facility] Comment on above: Performed By: #### D AT #### [facility] [address] [place] [address], MCHC (RBC) [Mass/Vol] 35.3 g/dL Normal 32.0-35.9 [facility] Comment on above: Performed By: #### D AT #### [facility] [address] [place] [address] [place], MCV (RBC) [Entitic vol] 109 fL High 80-100 [facility] Comment on above: Performed By: #### D AT #### [facility] [address] [place] [address], MONOCYTE DISTRIBUTION WIDTH Normal [facility] Comment on above: Performed By: #### D AT #### [facility] [address], [place], Monocytes (Bld) [#/Vol] 0.65 10*3/uL Normal 0.20-1.00 [facility] Comment on above: Performed By: #### D AT #### [facility] [address], [place], Monocytes/100 WBC (Bld) 11.4 % High 2.0-11.0 [facility] Comment on above: Performed By: #### D AT #### [facility] [address] [place] [address], Neutrophils (Bld) [#/Vol] 3.63 10*3/uL Normal 1.50-8.00 [facility] Comment on above: Performed By: #### D AT #### [facility] [address] [place] [address], Neutrophils/100 WBC (Bld) 63.2 % Normal 31.0-76.0 [facility] Comment on above: Performed By: #### D AT #### [facility] [address] [place] [address], Platelet mean volume (Bld) [Entitic vol] 8.2 fL Normal 7.5-11.2 [facility] Comment on above: Performed By: #### D AT #### [facility] [address] [place] [address], Platelets (Bld) [#/Vol] 82 10*3/uL Low 150-400 [facility] Comment on above: Performed By: #### D AT #### [facility] [address] [place] [address], RBC (Bld) [#/Vol] 2.69 10*6/uL Low 4.50-5.90 [facility] Comment on above: Performed By: #### D AT #### [facility] [address] [place] [address], WBC (Bld) [#/Vol] 5.7 10*3/uL Normal 4.5-11.5 [facility] Comment on above: Performed By: #### D AT #### [facility] [address], [place], Basophils (Bld) [#/Vol] 0.04 10*3/uL 0.00 - 0.20 K/uL [facility] Basophils/100 WBC (Bld) 0.6 % NINF - 1.9 % [facility] Eosinophils (Bld) [#/Vol] 0.21 10*3/uL 0.00 - 0.70 K/uL [facility] Eosinophils/100 WBC (Bld) 3.6 % 0.1 - 4.0 % [facility] Erythrocyte distribution width (RBC) [Ratio] 15.8 % High 11.5 - 14.5 % [facility] Hematocrit (Bld) [Volume fraction] 29.4 % Low 41.0 - 53.0 % [facility] Hemoglobin (Bld) [Mass/Vol] 10.4 g/dL Low 13.9 - 16.3 g/dL [facility] Lymphocytes (Bld) [#/Vol] 1.21 10*3/uL 1.00 - 4.80 K/uL [facility] Lymphocytes/100 WBC (Bld) 21.2 % Low 24.0 - 44.0 % [facility] MCH (RBC) [Entitic mass] 38.5 pg High 26.0 - 34.0 pg [facility] MCHC (RBC) [Mass/Vol] 35.3 g/dL 32.0 - 35.9 g/ dL [facility] MCV (RBC) [Entitic vol] 109 fL High 80 - 100 fL [facility] Monocyte distribution width Auto (Bld) [Entitic vol] [facility] Monocytes (Bld) [#/Vol] 0.65 10*3/uL 0.20 - 1.00 K/uL [facility] Monocytes/100 WBC (Bld) 11.4 % High 2.0 - 11.0 % [facility] Neutrophils (Bld) [#/Vol] 3.63 10*3/uL 1.50 - 8.00 K/uL [facility] Neutrophils/100 WBC (Bld) 63.2 % 31.0 - 76.0 % [facility] Platelet mean volume (Bld) [Entitic vol] 8.2 fL 7.5 - 11.2 fL [facility] Platelets (Bld) [#/Vol] 82 10*3/uL Low 150 - 400 K/uL [facility] RBC (Bld) [#/Vol] 2.69 10*6/uL Low [facility] WBC (Bld) [#/Vol] 5.7 10*3/uL 4.5 - 11.5 K/uL [facility] DIRECT ANTIGLOBULIN TESTon 0 11-13-2022 AYLIN PS INT Negative Normal [facility] Comment on above: Performed By: #### D AT #### [facility] [address], [place], Direct antiglobulin test.poly specific reagent Ql (RBC) Negative [facility] HAPTOGLOBINon 11-13-2022 HAPTOGLOBIN < 30 Low 36-220 [facility] Comment on above: Performed By: #### H EMO DNA #### [facility] Pathology [address] [place], [place] Haptoglobin [Mass/Vol] mg/dL Low 36 - 220 mg/dL [facility] Interpretation and review of laboratory results Abnormal [facility] HEMOCHROMATOSIS DNA TESTon 0 11-13-2022 HFE GENE MUTATION ANALYSIS See Below Normal [facility] Comment on above: Order Comment: Kelly esparza Agency Address Site ID: [id number] Name: [employer], Address: [address] [place] [id number] Director: Ambika Lara MD,PhD,HÉCTOR Result Comment: DL [...] variants in the HFE gene, C282Y (NM 949101.2: c.845G>A, p.[id number]) and H63D (NM 267103.2: c.187C>G, p.[id number]), that are commonly associated with HH. These [...] Health care providers, please contact your local [employer]' genetic counselor or call [phone] ( ) for assistance with the interpretation of these results. This test was developed and its analytical performance characteristics have been determined by [employer] [facility]. It has not been cleared or approved by FDA. This assay has been validated pursuant to the CLIA regulations and is used for clinical purposes. For more information, please refer to http://education.[employer].com/faq/hemochromatosis. (This link is being provided for informational/educational purposes only.) Reviewed and signed by Laboratory results and submitted clinical information reviewed by Lorna Strong, Ph.D., FACMG, HCLD, CGMB, Signed on 11/28/2022 at 20:40 Performed By: #### H EMO DNA #### [facility] [address], [place] HEPATIC FUNCTION PANELon Albumin [Mass/Vol] 2.9 g/dL Low 3.4-5.1 [facility] Comment on above: Performed By: #### H EMO DNA #### [facility] [address] [facility] [place], [place] ALK 386 IU/L High 40-200 [facility] Comment on above: Performed By: #### H EMO DNA #### [facility] [address] [facility] [place], [place] ALT [Catalytic activity/Vol] 36 U/L Normal 7-40 [facility] Comment on above: Performed By: #### H EMO DNA #### [facility] [address] [facility] [place], [place] AST [Catalytic activity/Vol] 68 U/L High 7-40 [facility] Comment on above: Performed By: #### H EMO DNA #### [facility] [address] [place] [address] Bilirubin [Mass/Vol] 6.9 mg/dL High 0.1-1.5 [facility] Comment on above: Performed By: #### H EMO DNA #### [facility] [address] [facility] [place], [place] Bilirubin.direct [Mass/Vol] 1.88 mg/dL High 0.10-0.30 [facility] Comment on above: Performed By: #### H EMO DNA #### [facility] [address] [facility] [place], [place] Protein [Mass/Vol] 7.0 g/dL Normal 6.2-8.3 [facility] Comment on above: Performed By: #### H EMO DNA #### [facility] [address] [facility] [place], [place] Albumin [Mass/Vol] 2.9 g/dL Low 3.4 - 5.1 g/dL [facility] ALP [Catalytic activity/Vol] 386 U/L High [facility] ALT [Catalytic activity/Vol] 36 U/L [facility] AST [Catalytic activity/Vol] 68 U/L High [facility] Bilirubin [Mass/Vol] 6.9 mg/dL High 0.1 - 1.5 mg/dL [facility] Bilirubin.direct [Mass/Vol] 1.88 mg/dL High 0.10 - 0.30 mg/dL [facility] Protein [Mass/Vol] 7.0 g/dL 6.2 - 8.3 g/dL [facility] LDHon 11-13-2022 LD 255 IU/L High 50-220 [facility] Comment on above: Performed By: #### H EMO DNA #### [facility] Pathology [address] [place] [address] [place], [place] LDH [Catalytic activity/Vol] 255 U/L High [facility] No Panel Informationon 11-13 Interpretation and review of laboratory results Abnormal [facility] Interpretation and review of laboratory results Abnormal [facility] PROTHROMBIN TIME AND INRon 0 11-13-2022 INR Coag (PPP) [Relative time] 1.71 {INR} High 0.90-1.10 [facility] Comment on above: Performed By: #### G ENTEST #### [facility] [address] [place] [address], PT Coag (PPP) [Time] 19.2 s High 9.7-12.9 [facility] Comment on above: Performed By: #### G ENTEST #### S [facility] LABORATORY [address] [place] [address], INR Coag (PPP) [Relative time] 1.71 {INR} High 0.90 - 1.10 [facility] Interpretation and review of laboratory results Abnormal [facility] PT Coag (PPP) [Time] 19.2 s High [facility] Progress Noteson 11-13-2022 [employer] Authentication Interface Message Text Will Anderson presents for oncology nurse visit Patient was identified by name and date of . Patient at risk for falls: No Falls Risk protocol implemented: No Has the patient started any medications, over the counter medications or herbal medications? No Blood drawn from Peripheral venipuncture LAC Complications: None. Marlin Polanco RN Normal [facility] [employer] Authentication Interface Message Text Hematology AND Oncology [...] and headaches. Endo/Heme/Allergies: Does not bruise/bleed easily. Psychiatric/Behavior al: Negative for depression, substance abuse and suicidal ideas. The patient is not nervous/anxious and does not have insomnia. 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 10 Tablet 0 sulfamethoxazole-tri methoprim 800-160 MG (Bactrim DS) 800-160 MG per [...] before breakfast). 28 Capsule 1 No current facility-administere d medications for this encounter. ALLERGIES: Amoxacillin [amoxicillin] [...] Co (more content not included)... Normal [facility] [employer] Authentication Interface Message Text .Patient was identified by name and date of . Jojo Garcia .Patient at risk for falls:No Falls Risk protocol implemented: No Normal [facility] RETICULOCYTE COUNTon 023 IMMATURE RETICULOCYTE FRACTION 0.45 Normal 0.30-0.50 [facility] Comment on above: Performed By: #### D AT #### [facility] [address] [place] [address], RETIC # 0.09 M/uL High 0.03-0.08 [facility] Comment on above: Performed By: #### D AT #### [facility] [address] [place] [address], RETIC % 3.3 % High 0.5-1.5 [facility] Comment on above: Performed By: #### D AT #### [facility] [address] [place] [address], Immature reticulocytes/Total reticulocytes (Bld) 0.45 % 0.30 - 0.50 [facility] Reticulocytes (Bld) [#/Vol] 0.09 10*3/uL High [facility] Reticulocytes/100 RBC (Bld) 3.3 % High 0.5 - 1.5 % [facility] Progress Noteson 10-27-2022 [employer] Authentication Interface Message Text Department of Gastroenterology [...] before breakfast). 28 Capsule 1 No current facility-administere d medications for this visit. Physical Exam BP [...] t (more content not included)... Normal [facility] [employer] Authentication Interface Message Text Patient was identified by name and date of . Eze SchillingPatient at risk for falls:No Falls Risk protocol implemented: No Normal [facility] Anesthesia Preprocedure Eval elmoon 09-21-2022 [employer] Authentication Interface Message Text ASA: 3 Past [...] Pulmonary Cardiovascular Neuro Plan Anesthesia plan: MAC (IA) Medications may include (but not limited to): anxiolytics, narcotic analgesics and IV hypnotics Pain management: May include (but not limited to): anxiolytics and narcotic analgesics Anesthesia risks / alternatives discussed pre-op Questions answered / anesthesia plan accepted Normal [facility] Telephone Encounteron 2022 [employer] Authentication Interface Message Text Situation: Pt calling [...] need rescheduled. Tanika Arias RN Normal [facility] Progress Noteson 08-29-2022 [employer] Authentication Interface Message Text [facility] Telemedicine Visit CC: Chief Complaint Patient presents with * Boil/carbuncle/cellu litis local HPI: Patient is a 36 year [...] surgical history personally reviewed and updated in [place]. OBJECTIVE: There were no vitals taken for this visit. Gen: Sounds well, no acute distress Resp: breathing comfortably ASSESSMENT AND PLAN: 1. Cellulitis, unspecified cellulitis site 2. Muscle soreness Orders AND Meds Signed During This Encounter * Creatine Kinase Documentation: Mode: Telephone Patient Patient Work Phone: Patient Cell Preferred phone: [phone] Consent: I confirmed patient understanding of the [...] Theo Burks MD Family Medicine Normal [facility] SMOOTH MUSC ATB SCRN & TITRO rdered By: Juan Luis Ferguson on 08-26-2022 Interpretation and review of laboratory results Normal [employer] Work Phone: Smooth muscle Ab Ql (S) Negative Negative [facility] Work Phone: Negative SMA test does not exclude the possibility of chronic liver disease. . I certify that I personally conducted the diagnostic evaluation of the above specimen(s) and have rendered the final diagnosis(es). [employer] Work Phone: [employer] Work Phone: BASIC METABOLIC PANELon 08-07 Anion gap [Moles/Vol] 14 mmol/L Normal 10-20 [facility] Comment on above: Performed By: #### G ENTEST #### S [facility] LAB[facility]AT[facility] [address] [place] [address], Calcium [Mass/Vol] 8.4 mg/dL Normal 8.4-10.4 [facility] Comment on above: Performed By: #### G ENTEST #### [facility] [address] [place] [address], Chloride [Moles/Vol] 101 mmol/L Normal 97-111 [facility] Comment on above: Performed By: #### G ENTEST #### [facility] [address] [place] [address], CO2 [Moles/Vol] 26 mmol/L Normal 21-30 [facility] Comment on above: Performed By: #### G ENTEST #### S [facility] [address] [place] [address], Creatinine [Mass/Vol] 0.55 mg/dL Low 0.80-1.30 [facility] Comment on above: Performed By: #### G ENTEST #### [facility] [address] [place] [address], ESTIMATED GFR (CKD-EPI) 131 mL/min/1.73sqm Normal >=60 [facility] Comment on above: Result Comment: 2020 [...] Inclusion of Race in Diagnosing Kidney Disease. Samoan Journal of Kidney Diseases 2021;79(2):268-88.e1. 2. N Engl J Med 1 Vol. 385 Issue 19 Pages [phone] Performed By: #### Earline ENTEST #### [facility] [address] [place] [address], Glucose [Mass/Vol] 55 mg/dL Low 68-110 [facility] Comment on above: Performed By: #### G ENTEST #### S [facility] [address] [place] [address], Potassium [Moles/Vol] 3.3 mmol/L Normal 3.3-5.3 [facility] Comment on above: Performed By: #### Earline ENTEST #### [facility] [address] [place] [address], Sodium [Moles/Vol] 138 mmol/L Normal 135-148 [facility] Comment on above: Performed By: #### G ENTEST #### [facility] [address] [place] [address], Urea nitrogen [Mass/Vol] 5 mg/dL Low 8-22 [facility] Comment on above: Performed By: #### G ENTEST #### [facility] [address] [place] [address], Basic metabolic 2000 panelon 08-25-2022 Anion gap [...] MDRD (S/P/Bld) [Vol rate/Area] 131 mL/min/{1.73_m2} - PINF [facility] Comment on above: 2020 CKD EPI [...] Inclusion of Race in Diagnosing Kidney Disease. [place]oan Journal of Kidney Diseases 202;79(2):268-88.e1. 2. N Engl J Med 2020 Vol. 385 Issue 19 Pages 1648-7225 Glucose [Mass/Vol] 55 mg/dL Low 68 - 110 mg/dL [facility] Potassium [Moles/Vol] 3.3 mmol/L 3.3 - 5.3 mmol /L [facility] Sodium [Moles/Vol] 138 mmol/L 135 - 148 mmol/L [facility] Urea nitrogen [Mass/Vol] 5 mg/dL Low 8 - 22 mg/dL [facility] CBC WITH DIFFERENTIALon 08-07 Basophils (Bld) [#/Vol] 0.06 10*3/uL 0.00 - 0.20 K/uL [facility] Basophils/100 WBC (Bld) 1.0 % NINF - 1.9 % [facility] Eosinophils (Bld) [#/Vol] 0.16 10*3/uL 0.00 - 0.70 K/uL [facility] Eosinophils/100 WBC (Bld) 2.8 % 0.1 - 4.0 % [facility] Erythrocyte distribution width (RBC) [Ratio] 15.8 % High 11.5 - 14.5 % [facility] Hematocrit (Bld) [Volume fraction] 33.5 % Low 41.0 - 53.0 % [facility] Hemoglobin (Bld) [Mass/Vol] 11.6 g/dL Low 13.9 - 16.3 g/dL [facility] Interpretation and review of laboratory results Abnormal [facility] Lymphocytes (Bld) [#/Vol] 1.65 10*3/uL 1.00 - 4.80 K/uL [facility] Lymphocytes/100 WBC (Bld) 28.9 % 24.0 - 44.0 % [facility] MCH (RBC) [Entitic mass] 37.2 pg High 26.0 - 34.0 pg [facility] MCHC (RBC) [Mass/Vol] 34.5 g/dL 32.0 - 35.9 g/ dL [facility] MCV (RBC) [Entitic vol] 108 fL High 80 - 100 fL [facility] Monocyte distribution width Auto (Bld) [Entitic vol] [facility] Monocytes (Bld) [#/Vol] 0.76 10*3/uL 0.20 - 1.00 K/uL [facility] Monocytes/100 WBC (Bld) 13.3 % High 2.0 - 11.0 % [facility] Neutrophils (Bld) [#/Vol] 3.07 10*3/uL 1.50 - 8.00 K/uL [facility] Neutrophils/100 WBC (Bld) 54.0 % 31.0 - 76.0 % [facility] Platelet mean volume (Bld) [Entitic vol] 8.1 fL 7.5 - 11.2 fL [facility] Platelets (Bld) [#/Vol] 131 10*3/uL Low 150 - 400 K/uL [facility] RBC (Bld) [#/Vol] 3.11 10*6/uL Low [facility] WBC (Bld) [#/Vol] 5.7 10*3/uL 4.5 - 11.5 K/uL [facility] Basophils (Bld) [#/Vol] 0.06 10*3/uL Normal 0.00-0.20 [facility] Comment on above: Performed By: #### C BCDSAT ####[facility] [address] [place] [address], [place], #### HEMO DNA ####[facility] [address] [place], [place] [id number] Basophils/100 WBC (Bld) 1.0 % Normal <=1.9 [facility] Comment on above: Performed By: #### C BCDSAT ####[facility] [address] [place] [address], #### HEMO DNA ####[address] Eosinophils (Bld) [#/Vol] 0.16 10*3/uL Normal 0.00-0.70 [facility] Comment on above: Performed By: #### C BCDSAT ####[facility] [address] [place] [address], #### HEMO DNA ####[address] Eosinophils/100 WBC (Bld) 2.8 % Normal 0.1-4.0 [facility] Comment on above: Performed By: #### C BCDSAT ####[facility] [address] [place] [address], #### HEMO DNA ####[address] Erythrocyte distribution width (RBC) [Ratio] 15.8 % High 11.5-14.5 [facility] Comment on above: Performed By: #### C BCDSAT ####[facility] [address] [place] [address], #### HEMO DNA ####[address] Hematocrit (Bld) [Volume fraction] 33.5 % Low 41.0-53.0 [facility] Comment on above: Performed By: #### C BCDSAT ####[facility] [address] [place] [address], #### HEMO DNA ####[address] Hemoglobin (Bld) [Mass/Vol] 11.6 g/dL Low 13.9-16.3 [facility] Comment on above: Performed By: #### C BCDSAT ####[facility] Z[address]PJ[address]LGZ[address] [place] [address], #### HEMO DNA ####[facility] [address] [place], [place] [id number] Lymphocytes (Bld) [#/Vol] 1.65 10*3/uL Normal 1.00-4.80 [facility] Comment on above: Performed By: #### C BCDSAT ####[facility] RFQATOJILE[address] [place] [address], #### HEMO DNA ####[address] Lymphocytes/100 WBC (Bld) 28.9 % Normal 24.0-44.0 [facility] Comment on above: Performed By: #### C BCDSAT ####[facility] [address]WH[address] [place] [address], #### HEMO DNA ####[facility] [address] [place], [place] [id number] MCH (RBC) [Entitic mass] 37.2 pg High 26.0-34.0 [facility] Comment on above: Performed By: #### C BCDSAT ####[facility] NXNDPQJBTF[address] [place] [address], #### HEMO DNA ####[facility] [address] [place], [place] [id number] MCHC (RBC) [Mass/Vol] 34.5 g/dL Normal 32.0-35.9 [facility] Comment on above: Performed By: #### C BCDSAT ####[facility] WMVZGEDOYO[address] [place] [address], #### HEMO DNA ####[address] MCV (RBC) [Entitic vol] 108 fL High 80-100 [facility] Comment on above: Performed By: #### C BCDSAT ####[facility] DLGIPIUEAI[address] [place] [address], #### HEMO DNA ####[facility] [address] [place], [place] [id number] MONOCYTE DISTRIBUTION WIDTH Normal [facility] Comment on above: Performed By: #### C BCDSAT ####[facility] OOQNSWWWRL[address] [place] [address], #### HEMO DNA ####[facility] [address] [place], [place] [id number] Monocytes (Bld) [#/Vol] 0.76 10*3/uL Normal 0.20-1.00 [facility] Comment on above: Performed By: #### C BCDSAT ####[facility] [address]SSIEV[address] [place] [address], #### HEMO DNA ####[facility] Ejseksavs[address] [place], [place] [id number] Monocytes/100 WBC (Bld) 13.3 % High 2.0-11.0 [facility] Comment on above: Performed By: #### C BCDSAT ####[facility] VJDTUUONOH[address] [place] [address], #### HEMO DNA ####[facility] O[address] [place], [place] [id number] Neutrophils (Bld) [#/Vol] 3.07 10*3/uL Normal 1.50-8.00 [facility] Comment on above: Performed By: #### C BCDSAT ####[facility] CKWTGIWTGP[address] [place] [address], #### HEMO DNA ####[facility] Ifzmcgcvs[address] [place], [place] [id number] Neutrophils/100 WBC (Bld) 54.0 % Normal 31.0-76.0 [facility] Comment on above: Performed By: #### C BCDSAT ####[facility] YXHTDKDCBF[address] [place] [address], #### HEMO DNA ####[facility] [address] [place], [place] Platelet mean volume (Bld) [Entitic vol] 8.1 fL Normal 7.5-11.2 [facility] Comment on above: Performed By: #### C BCDSAT ####[facility] [address] [place] [address], #### HEMO DNA ####[facility] [address] [place], [place] Platelets (Bld) [#/Vol] 131 10*3/uL Low 150-400 [facility] Comment on above: Performed By: #### Bharat BCDSAT ####[facility] [address] [place] [address], #### HEMO DNA ####[facility] F[address]awel[address] [place], [place] [id number] RBC (Bld) [#/Vol] 3.11 10*6/uL Low 4.50-5.90 [facility] Comment on above: Performed By: #### Bharat BCDSAT ####[facility] RQ[address]UZQG[address] [place] [address], #### HEMO DNA ####[facility] [address] [place], [place] [id number] WBC (Bld) [#/Vol] 5.7 10*3/uL Normal 4.5-11.5 [facility] Comment on above: Performed By: #### C BCDSAT ####[facility] [address]XI[address] [place] [address], #### HEMO DNA ####[facility] E[address]ji[address] [place], [place] [id number] FERRITINon 08-25-2022 DARRYN 346.0 ng/mL High 11.5-300.0 [facility] Comment on above: Performed By: ###Lori Wilder ENTEST #### [facility] [address] [place] [address], HEMOCHROMATOSIS DNA TESTon 1 10-26-2021 HFE GENE MUTATION ANALYSIS See Below Normal [facility] Comment on above: Order Comment: Kelly esparza Agency Address Site ID: [id number] Name: [employer], Address: [address] [place] [address] Director: Ambika Lara MD,PhD,HÉCTOR Result Comment: DL [...] and results monitored by Paulette García, Ph.D., [facility]. DETAILED ASSAY INFORMATION: Hereditary hemochromatosis (HH) [...] variants in the HFE gene, C282Y (NM 488639.2: c.845G>A, p.Zww105Out) and H63D (NM 415454.2: c.187C>G, p.Awk54Bsx), that are commonly associated with HH. These [...] Health care providers, please contact your local [employer]' genetic counselor or call [phone] ( ) for assistance with the interpretation of these results. This test was developed and its analytical performance characteristics have been determined by [employer] [facility] [place]. It has not been cleared or approved by FDA. This assay has been validated pursuant to the CLIA regulations and is used for clinical purposes. For more information, please refer to http://education.Sopogy.Outbrain/faq/hemochromatosis. (This link is being provided for informational/educational purposes only.) Reviewed and signed by Laboratory testing supervised and results monitored by Paulette García, Ph.D., [facility], [facility], Signed on 09/05/2022 at 16:33 Performed By: #### C BCDSAT ####[facility] [id number] [place], [place], #### HEMO DNA ####[facility] [address] [place], [place] HEPATIC FUNCTION PANELon Albumin [Mass/Vol] 3.0 g/dL Low 3.4-5.1 [facility] Comment on above: Performed By: #### H EMO DNA #### [facility] [address] [place] [address] ALK 389 IU/L High 40-200 [facility] Comment on above: Performed By: #### H EMO DNA #### [facility] [address] [place], [place] ALT [Catalytic activity/Vol] 56 U/L High 7-40 [facility] Comment on above: Performed By: #### H EMO DNA #### [facility] [address] [place], [place] AST [Catalytic activity/Vol] 103 U/L High 7-40 [facility] Comment on above: Performed By: #### H EMO DNA #### [facility] [address] [place], [place] Bilirubin [Mass/Vol] 7.7 mg/dL High 0.1-1.5 [facility] Comment on above: Performed By: #### H [facility] DNA #### [facility] [address] [facility] [place], [place] Bilirubin.direct [Mass/Vol] 2.20 mg/dL High 0.10-0.30 [facility] Comment on above: Performed By: #### H [facility] DNA #### [facility] [address] [facility] [place], [place] Protein [Mass/Vol] 7.2 g/dL Normal 6.2-8.3 [facility] Comment on above: Performed By: #### H [facility] DNA #### [facility] [address] [facility] [place], [place] IMMUNOGLOBULIN Eb IgG [Mass/Vol] 1995 mg/dL High 768-1632 [facility] Comment on above: Performed By: #### G ENTEST #### S [facility]OLOGY LABORATORY [address] [place] [address], IRON AND TIBCon 08-25-2022 % SAT CORRECT PRD 96 % High 20-55 [facility] Comment on above: Performed By: #### G ENTEST #### S [facility] [address] [place] [address], FE CORRECT PRD 237 ug/dL High 45-160 [facility] Comment on above: Performed By: #### G ENTEST #### S [facility] [address] [place] [address], TIBC CORRECT PRD 248 ug/mL Low 250-410 [facility] Comment on above: Performed By: #### G ENTEST #### S [facility] [address] [place] [address], TRANSFER CORRECT PRD 177 mg/dL Low 210-375 [facility] Comment on above: Performed By: #### G ENTEST #### S [facility] [address] [place] [address], Laboratory - Chemistry and C hemistry - challengeon 08-25-2022 Ferritin [Mass/Vol] 346.0 ng/mL High 11.5 - 3 00.0 ng/mL [facility] Albumin [Mass/Vol] 3.0 g/dL Low 3.4 - 5.1 g/dL [facility] ALP [Catalytic activity/Vol] 389 U/L High [facility] ALT [Catalytic activity/Vol] 56 U/L High [facility] AST [Catalytic activity/Vol] 103 U/L [facility] [facility] Bilirubin [Mass/Vol] 7.7 mg/dL High 0.1 - 1.5 mg/dL [facility] Bilirubin.direct [Mass/Vol] 2.20 mg/dL High 0.10 - 0.30 mg/dL [facility] Iron [Mass/Vol] 237 ug/dL High 45 - 160 ug/dL [facility] Iron binding capacity [Mass/Vol] 248 ug/mL Low 250 - 410 ug/mL [facility] Iron saturation [Mass fraction] 96 % High 20 - 55 % [facility] Protein [Mass/Vol] 7.2 g/dL 6.2 - 8.3 g/dL [facility] Transferrin [Mass/Vol] 177 mg/dL Low 210 - 375 mg/dL [facility] Laboratory - Serology - non- microon 08-25-2022 Immune complex.IgG [Mass/Vol] 1995 mg/dL High 768 - 1632 mg/dL [facility] MISCELLANEOUS SEND OUT TESTo n 08-25-2022 MISCELLANEOUS TEST RESULT See scanned report Normal [facility] Comment on above: Performed By: #### G ENTEST #### S PATHOLOGY LABORATORY [address] [place] [address], TEST NAME Phosphatidylethanol (PEth) Normal [facility] Comment on above: Performed By: #### G ENTEST #### S PATHOLOGY LABORATORY [address] [place] [address], No Panel Informationon 08-25 Interpretation and review of laboratory results Abnormal [facility] Interpretation and review of laboratory results Abnormal [facility] Interpretation and review of laboratory results Abnormal [facility] Patient Instructionson 08-25 [employer] Authentication Interface Message Text Continue antibiotics for another 7 days Topical antibiotic ointment for left foot Follow up on Thursday Refilled zofran (anti-nausea medication) Normal [facility] Progress Noteson 08-25-2022 [employer] Authentication Interface Message Text [facility] Office Visit CC: Chief [...] surgical history personally reviewed and updated in Gu[facility]. OBJECTIVE: BP 132/65 (BP Location: left arm, [...] Theo Burks MD Family Medicine Normal [facility] [employer] Authentication Interface Message Text Attestation signed by [...] Gary MD Division of Gastroenterology AND Hepatology [facility] Department of Gastroenterology and Hepatology Hepatology [...] hepatology clinic for EtOH cirrhosis. Admitted to [facility] ICU for acute alcoholic hepatitis (MDF 43) [...] B27 positive) 2003 Followed with Rheum at [facility] Open fracture of other and unspecified part of body of mandible Social History Socioeconomic History Marital status: Single Tobacco Use Smoking status: Former Types: Cigarettes Smokeless tobacco: Current Types: Chew Allergies and Current Medications Allergies Allergen Reactions Amoxacillin [Amoxicillin] Current Outpatient Medications Medication Sig Dispense Refill amoxicillin-clavulan ate (Augmentin) 875-125 MG per tablet Take 1 [...] ( (more content not included)... Normal [facility] [employer] Authentication Interface Message Text Patient was identified by name and date of . Maura Canela Patient at risk for falls:No Falls Risk protocol implemented: No Normal [facility] SMOOTH MUSC ATB SCRN AND TIT Froilan 08-25-2022 ANTI-SMA SCREEN Negative Normal Negative [facility] Comment on above: Order Comment: Kelly esparza Agency Address Site ID: [id number] Name: [employer], Address: [address] [place] [id number] Director: Ambika Lara MD,PhD,HÉCTOR Performed By: #### H EMO DNA #### [facility] [address] [place], [place] [address] Addendum Noteon 08-21-2022 [employer] Authentication Interface Message Text Addended by: TANVIR BLACK on: 08/21/2022 08:52 PM Modules accepted: Orders Normal [facility] US RUQ/LIVER DOPPLER (CHRISTIANO)on 08-21-2022 US [...] abdominal ascites. Cholelithiasis MACRO: None Normal [facility] Progress Noteson 08-16-2022 [employer] Authentication Interface Message Text Reviewed urine C AND S. Urine growing klebsiella pneumoniae, with intermediate sensitivity to Macrobid. Culture Positive Culture Report Abnormal >100,000 CFU/ml Klebsiella pneumoniae Resulting [place] [facility] [place] Susceptibility Klebsiella pneumoniae BHAVIN Amoxicillin + Clavulanate 4 BHAVIN Sensitive Ampicillin + Sulbactam 8 BHAVIN Sensitive Cefazolin <=4 BHAVIN Sensitive Cefepime <=1 [facility]AVIN Sensitive Ceftazidime <=1 [facility]AVIN Sensitive Ceftriaxone <=1 [facility] Sensitive Ciprofloxacin <=0.25 [facility] Sensitive Ertapenem <=0.5 BH[facility] Sensitive Gentamicin <=1 [facility] Sensitive Nitrofurantoin 64 BHAVNI Intermediate Piperacillin + Tazobactam <=4 BHAVIN Sensitive Trimethoprim + Sulfamethoxazole >=320 BHAVIN Resistant Will change current antibiotic to Augmentin X10 days Sent to preferred pharmacy. Pt called and made aware Phone numbers Preferred [facility] Ella Black MD Pgr [phone] Hematology/Oncology 08/16/2022 . Normal [facility] ED Provider Noteson 08-15-20 [employer] Authentication Interface Message Text Attestation signed by [...] - VISIT NOTE HISTORY OF PRESENT ILLNESS ------ Chief Complaint Patient presents with Leg/thigh symptoms Pt states has infection in R leg x 4 days, seen yesterday for same Administrative Resources Associate: not needed - patient preferred language is Mauritanian. The history is provided by the Patient. [...] and headaches. Hematological: Does not bruise/bleed easily. Psychiatric/Behavior al: Negative for confusion. 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 MEDICAL DECISION MAKING and ED COURSE - Nursing triage and assessment notes reviewed and incorporated Evaluated by EM attending Ann-Marie Bray Interpretation of Results: please see below Course: ED Course as of 08/16/22 0029 ThuAug 15, 2022 1354 BP: 147/70 [MS] 1354 Temperature: 98.5 ???F (36.9 ???C) [MS] 1354 Heart Rate: 94 [MS] 1354 Respiratory Rate: 18 [MS] 1354 SpO2: 100 % [MS] 1354 Vitals: normotensive, afebrile, not tachycardic, not hypoxic [MS] 1357 On chart review seen yesterday for similar. Had dvt us which was negative. Seen today at [facility] [MS] 1500 Has prescription for bactrim and nitrofurantoin at pharm (more content not included)... Normal [facility] Progress Noteson 08-15-2022 [employer] Authentication Interface Message Text Chief Complaint Patient [...] Tablet by mouth daily. 90 Tablet 3 sulfamethoxazole-tri methoprim 800-160 MG (BACTRIM DS) 800-160 MG per tablet Take 1 tablet by mouth every Thursday, , and Thursday. 30 Tablet 5 mycophenolate (CELLCEPT) 500 MG tablet Take 1 Tablet by mouth 2 times daily. 120 Tablet 3 esomeprazole (NEXIUM) 40 MG capsule Take 1 Capsule by mouth daily (30 minutes before breakfast). (Patient not taking: Reported on 08/14/2022) 28 Capsule 1 No current facility-administere d medications for this visit. 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 NENITA FRANCO MD Normal [facility] [employer] Authentication Interface Message Text Patient was identified by name and date of . Katie Paniagua Normal [facility] XR KNEE RT ANY 4 OR [...] anteriorly. Right knee MACRO: None Normal [facility] XR Knee - right Viewson -0 EXAMINATION: XR KNEE RT ANY 4 OR [...] the calcaneus anteriorly. Right knee MACRO: None [facility] Rad[facility] Study observation (narrative) [facility] XR Knee - right ViewsOrdered By: Colby Mcintosh on 08-15-2022 [employer] Work Phone: BASIC METABOLIC PANELon 12-0 Anion gap [Moles/Vol] 14 mmol/L Normal 10-20 [facility] Comment on above: Performed By: #### C H8, URIC, HEPATIC, LD #### [facility] [address] [place] [address], Calcium [Mass/Vol] 7.9 mg/dL Low 8.4-10.4 [facility] Comment on above: Performed By: #### C H8, URIC, HEPATIC, LD #### [facility] [address] [place] [address], Chloride [Moles/Vol] 97 mmol/L Normal 97-111 [facility] Comment on above: Performed By: #### C H8, URIC, HEPATIC, LD #### [facility] [address], [place], CO2 [Moles/Vol] 24 mmol/L Normal 21-30 [facility] Comment on above: Performed By: #### C H8, URIC, HEPATIC, LD #### [facility] [address], [place], Creatinine [Mass/Vol] 0.55 mg/dL Low 0.80-1.30 [facility] Comment on above: Performed By: #### C H8, URIC, HEPATIC, LD #### [facility] [address], [place], ESTIMATED GFR (CKD-EPI) 131 mL/min/1.73sqm Normal >=60 [facility] Comment on above: Result Comment: 2020 CKD EPI Equation using Creatinine without Race Comment: Estimated glomerular filtration rate (eGFR) is calculated without a race coefficient. Values should be interpreted in the context of the patient's full clinical presentation. Reference: 1. Fran Nicholson Baweja M, [place] SAGASTUME, et al.. A Unifying Approach for GFR Estimation: Recommendations of the NKF-ASN Task Force on Reassessing the Inclusion of Race in Diagnosing Kidney Disease. Samoan Journal of Kidney Diseases 2021;79(2):268-88.e1. 2. N Engl J Med 2020 Vol. 385 Issue 19 Pages 9929-2514 Performed By: #### C H8, URIC, HEPATIC, LD #### [facility] [address] [place] [address], Glucose [Mass/Vol] 89 mg/dL Normal 68-110 [facility] Comment on above: Performed By: #### C H8, URIC, HEPATIC, LD #### [facility] [address] [place] [address], Potassium [Moles/Vol] 3.0 mmol/L Low 3.3-5.3 [facility] Comment on above: Performed By: #### C H8, URIC, HEPATIC, LD #### [facility] [address] [place] [address], Sodium [Moles/Vol] 132 mmol/L Low 135-148 [facility] Comment on above: Performed By: #### C H8, URIC, HEPATIC, LD #### [facility] [address] [place] [address], Urea nitrogen [Mass/Vol] 5 mg/dL Low 8-22 [facility] Comment on above: Performed By: #### C H8, URIC, HEPATIC, LD #### [facility] [address] [place] [address], Basic metabolic 2000 panelon 08-14-2022 Anion gap [Moles/Vol] 14 mmol/L 10 - 20 [facility] Calcium [Mass/Vol] 7.9 mg/dL Low 8.4 - 10.4 mg/dL [facility] Chloride [Moles/Vol] 97 mmol/L 97 - 111 mmol/L [facility] CO2 [Moles/Vol] 24 mmol/L 21 - 30 mmol/L [facility] Creatinine [Mass/Vol] 0.55 mg/dL Low 0.80 - 1.30 mg /dL [facility] GFR/1.73 sq M.predicted MDRD (S/P/Bld) [Vol rate/Area] 131 mL/min/{1.73_m2} - PINF [facility] Comment on above: 2020 CKD EPI [...] Inclusion of Race in Diagnosing Kidney Disease. Samoan Journal of Kidney Diseases 2021;79(2):268-88.e1. 2. N Engl J Med 2020 Vol. 385 Issue 19 Pages 5048-4364 Glucose [Mass/Vol] 89 mg/dL 68 - 110 mg/dL [facility] Potassium [Moles/Vol] 3.0 mmol/L Low 3.3 - 5.3 mmol /L [facility] Sodium [Moles/Vol] 132 mmol/L Low 135 - 148 mmol/L [facility] Urea nitrogen [Mass/Vol] 5 mg/dL Low 8 - 22 mg/dL [facility] CBC WITH DIFFERENTIALon 12-0 Erythrocyte distribution width (RBC) [Ratio] 14.8 % High 11.5-14.5 [facility] Comment on above: Performed By: #### C BC #### S PATHOLOG[facility] LABORATORY [address] [place] [address], Hematocrit (Bld) [Volume fraction] 31.8 % Low 41.0-53.0 [facility] Comment on above: Performed By: #### C BC #### S [facility] [address] [place] [address], Hemoglobin (Bld) [Mass/Vol] 11.6 g/dL Low 13.9-16.3 [facility] Comment on above: Performed By: #### C BC #### S [facility] [address] [place] [address], MCH (RBC) [Entitic mass] 38.3 pg High 26.0-34.0 [facility] Comment on above: Performed By: #### C BC #### S [facility] [address] [place] [address], MCHC (RBC) [Mass/Vol] 36.5 g/dL High 32.0-35.9 [facility] Comment on above: Performed By: #### C BC #### [facility] [address] [place] [address], MCV (RBC) [Entitic vol] 105 fL High 80-100 [facility] Comment on above: Performed By: #### C BC #### [facility] [address] [place] [address], MONOCYTE DISTRIBUTION WIDTH Normal [facility] Comment on above: Performed By: #### C BC #### [facility] [address] [place] [address], Nucleated RBC (Bld) [#/Vol] 0.01 10*3/uL Normal [facility] Comment on above: Performed By: #### C BC #### [facility] [address] [place] [address], Platelet mean volume (Bld) [Entitic vol] 8.4 fL Normal 7.5-11.2 [facility] Comment on above: Performed By: #### C BC #### [facility] [address] [place] [address], Platelets (Bld) [#/Vol] 100 10*3/uL Low 150-400 [facility] Comment on above: Performed By: #### C BC #### [facility] [address] [place] [address], RBC (Bld) [#/Vol] 3.03 10*6/uL Low 4.50-5.90 [facility] Comment on above: Performed By: #### C BC #### [facility] [address] [place] [address], WBC (Bld) [#/Vol] 9.2 10*3/uL Normal 4.5-11.5 [facility] Comment on above: Performed By: #### C BC #### [facility] [address] [place] [address], HAPTOGLOBINon 08-14-2022 HAPTOGLOBIN < 30 Low 36-220 [facility] Comment on above: Performed By: #### G ENTEST #### S [facility] LAB[facility]ATORY [address] [place] [address], HEPATIC FUNCTION PANELon Albumin [Mass/Vol] 2.9 g/dL Low 3.4-5.1 [facility] Comment on above: Performed By: #### Bharat H8, URIC, HEPATIC, LD #### [facility] [address] [place] [address], ALK 245 IU/L High 40-200 [facility] Comment on above: Performed By: #### Bharat HRenee, URIC, HEPATIC, LD #### [facility] [address] [place] [address], ALT [Catalytic activity/Vol] 47 U/L High 7-40 [facility] Comment on above: Performed By: #### Bharat HRenee, URIC, HEPATIC, LD #### [facility] [address] [place] [address], AST [Catalytic activity/Vol] 96 U/L High 7-40 [facility] Comment on above: Performed By: #### Bharat H8, URIC, HEPATIC, LD #### [facility] [address] [place] [address], Bilirubin [Mass/Vol] 10.6 mg/dL High 0.1-1.5 [facility] Comment on above: Result Comment: Elev ated bilirubin may falsely lower creatinine Performed By: #### Bharat H8, URIC, HEPATIC, LD #### [facility] [address] [place] [address], Bilirubin.direct [Mass/Vol] 2.83 mg/dL High 0.10-0.30 [facility] Comment on above: Performed By: #### Bharat H8, URIC, HEPATIC, LD #### [facility] [address] [place] [address], Protein [Mass/Vol] 6.4 g/dL Normal 6.2-8.3 [facility] Comment on above: Performed By: #### C H8, URIC, HEPATIC, LD #### [facility] [address], [place], LDHon 08-14-2022 LD 260 IU/L High 50-220 [facility] Comment on above: Performed By: #### C H8, URIC, HEPATIC, LD #### [facility] [address], [place], Laboratory - Chemistry and C hemistry - challengeon 08-14-2022 Urate [Mass/Vol] 1.9 mg/dL Low 2.0 - 7.3 mg/dL [facility] Albumin [Mass/Vol] 2.9 g/dL Low 3.4 - 5.1 g/dL [facility] ALP [Catalytic activity/Vol] 245 U/L High [facility] ALT [Catalytic activity/Vol] 47 U/L High [facility] AST [Catalytic activity/Vol] 96 U/L High [facility] Bilirubin [Mass/Vol] 10.6 mg/dL High 0.1 - 1.5 mg/dL [facility] Comment on above: Elevated bilirubin m ay falsely lower creatinine Bilirubin.direct [Mass/Vol] 2.83 mg/dL High 0.10 - 0.30 mg/dL [facility] LDH [Catalytic activity/Vol] 260 U/L High [facility] Protein [Mass/Vol] 6.4 g/dL 6.2 - 8.3 g/dL [facility] Creatinine (U) [Mass/Vol] 57 mg/dL 10 - 300 mg/dL [facility] Protein/Creatinine (U) [Mass ratio] 123 mg/g NINF - 164 mg/g [facility] Bilirubin Ql (U) Positive Abnormal Negative [facility] Ketones Ql (U) Negative Negative mg/dL [facility] pH (U) 7.0 [pH] 5.0 - 8.0 [facility] Specific gravity (U) [Rel density] Low 1.005 - 1.030 [facility] Urobilinogen Qn (U) >=8.0 Abnormal 0.2 - 1.0 mg/dL [facility] - Hematology and Cell countson 08-14-2022 Cells Counted Total (Bld) [#] 100 {cells} [facility] Eosinophils (Bld) [#/Vol] 0.09 10*3/uL 0.00 - 0.70 K/uL [facility] Eosinophils/100 WBC (Bld) 1.0 % 0.1 - 4.0 % [facility] Lymphocytes (Bld) [#/Vol] 1.29 10*3/uL 1.00 - 4.80 K/uL [facility] Lymphocytes/100 WBC (Bld) 14.0 % Low 24.0 - 44.0 % [facility] Macrocytes Ql (Bld) Slight [facility] Monocytes (Bld) [#/Vol] 1.38 10*3/uL High 0.20 - 1.00 K/uL [facility] Monocytes/100 WBC (Bld) 15.0 % High 2.0 - 11.0 % [facility] Neutrophils (Bld) [#/Vol] 6.44 10*3/uL 1.50 - 8.00 K/uL [facility] Neutrophils/100 WBC (Bld) 70.0 % 31.0 - 76.0 % [facility] Haptoglobin [Mass/Vol] mg/dL Low 36 - 220 mg/dL [facility] Hemoglobin Ql (U) Negative Negative [facility] - Hematology and Cell countsOrdered By: Tayla Strickland on 08-14-2022 Erythrocyte distribution width (RBC) [Ratio] 14.8 % High 11.5 - 14.5 % [facility] Hematocrit (Bld) [Volume fraction] 31.8 % Low 41.0 - 53.0 % [facility] Hemoglobin (Bld) [Mass/Vol] 11.6 g/dL Low 13.9 - 16.3 g/dL [facility] MCH (RBC) [Entitic mass] 38.3 pg High 26.0 - 34.0 pg [facility] MCHC (RBC) [Mass/Vol] 36.5 g/dL High 32.0 - 35.9 g/ dL [facility] MCV (RBC) [Entitic vol] 105 fL High 80 - 100 fL [facility] Monocyte distribution width Auto (Bld) [Entitic vol] [facility] Nucleated RBC (Bld) [#/Vol] 0.01 10*3/uL [facility] Platelet mean volume (Bld) [Entitic vol] 8.4 fL 7.5 - 11.2 fL [facility] Platelets (Bld) [#/Vol] 100 10*3/uL Low 150 - 400 K/uL [facility] RBC (Bld) [#/Vol] 3.03 10*6/uL Low [facility] WBC (Bld) [#/Vol] 9.2 10*3/uL 4.5 - 11.5 K/uL [facility] - Specimen inform ationon 08-14-2022 Appearance (U) Clear Clear [facility] Color (U) Light Yellow Yellow [facility] - Urinalysison Protein (U) [Mass/Vol] 7 mg/dL NINF - 100 mg/dL [facility] Bacteria LM.HPF (Urine sed) [#/Area] Few /HPF [facility] Glucose Auto test strip (U) [Mass/Vol] Negative Negative mg/dL [facility] Leukocyte esterase Test strip Ql (U) Moderate Abnormal Negative Svitlana/uL [facility] Nitrite Ql (U) Negative Negative [facility] Protein (U) [Mass/Vol] Negative Negative mg/dL [facility] WBC (U) [#/Vol] 0-2 [facility] WBC LM.HPF (Urine sed) [#/Area] 6-10 Abnormal [facility] MANUAL DIFF AND MORPHon 12-0 CELLS COUNTED TOTAL # IN BLOOD 100 Normal [facility] Comment on above: Performed By: #### C BC #### [facility] [address] [place] [address], EOSINOPHILS % BY MANUAL COUNT 1.0 % Normal 0.1-4.0 [facility] Comment on above: Performed By: #### C BC #### [facility] [address] [place] [address], EOSINOPHILS ABS BY MANUAL COUNT 0.09 K/uL Normal 0.00-0.70 [facility] Comment on above: Performed By: #### C BC #### [facility] [address] [place] [address], LYMPHOCYTES % BY MANUAL COUNT 14.0 % Low 24.0-44.0 [facility] Comment on above: Performed By: #### C BC #### [facility] [address] [place] [address], LYMPHOCYTES ABS BY MANUAL COUNT 1.29 K/uL Normal 1.00-4.80 [facility] Comment on above: Performed By: #### C BC #### S [facility] LABORATORY [address], [place], MACROCYTOSIS Slight Normal [facility] Comment on above: Performed By: #### C BC #### [facility] [address], [place], MONOCYTES % BY MANUAL COUNT 15.0 % High 2.0-11.0 [facility] Comment on above: Performed By: #### C BC #### [facility] [address], [place], MONOCYTES ABS BY MANUAL COUNT 1.38 K/uL High 0.20-1.00 [facility] Comment on above: Performed By: #### C BC #### [facility] [address], [place], NEUTROPHILS % BY MANUAL COUNT 70.0 % Normal 31.0-76.0 [facility] Comment on above: Performed By: #### C BC #### [facility] [address], [place], NEUTROPHILS ABS BY MANUAL COUNT 6.44 K/uL Normal 1.50-8.00 [facility] Comment on above: Performed By: #### C BC #### [facility] [address], [place], No Panel InformationOrdered By: Tayla Strickland on 08-14-2022 Interpretation and review of laboratory results Abnormal [facility] No Panel Informationon 08-14 Interpretation and review of laboratory results Abnormal [facility] Interpretation and review of laboratory results Abnormal [facility] Interpretation and review of laboratory results Normal [facility] Interpretation and review of laboratory results Abnormal [facility] A negative leukocyte esterase AND negative nitrite [...] (positive predictive value for UTI around 50%) [facility] Patient Instructionson 08-14 [employer] Authentication Interface Message Text -can take tylenol up 1/2 recommended daily dose (no more than 2000 mg per day) -no NSAIDs! -Limit salt (2000 mg/day) -take lactulose; can take several doses to achieve 2-3 bowel movements/day, if taking more than 5 doses without desired effect please let me know. Please call any one of these numbers to schedule your Upper Endoscopy. [facility] [address] [place], [place] [address] [facility] Thursday-Thursday 8A-4P [facility] [address], [place] [id number] Thursday-Thursday 8A-4P [facility] [address] [place], [place] [id number] Thursday-Thursday 8A-4P [facility] Procedure scheduling: UPPER ENDOSCOPY or EGD WHAT IS AN UPPER ENDOSCOPY? Upper endoscopy is a way to look a the inside of the esophagus(food-pipe) , the stomach and the duodenum (the first [...] hours, please call to speak to the [facility] nurse regional account manager. If you need to cancel this appointment, please call , at least 48 hours before your appointment time. For additional health or procedure preparation information call the [employer] line at . The [employer] line is open 24 hours a day including weekends and holidays. PLEASE BRING IN YOUR INSURANCE CARD AND MEDICATIONS OR LIST OF CURRENT MEDICATIONS. PLEASE LEAVE JEWELRY AT HOME AND DO NOT WEAR HEAVY FRAGRANCE OR NAIL HAITIAN WE MAKE EVERY ATTEMPT TO MAINTAIN OUR [...] any problems or questions, please call the [employer] line at [phone]. Normal The [employer] [facility] Progress Noteson 08-14-2022 [employer] Authentication Interface Message Text Hematology AND Oncology [...] and headaches. Endo/Heme/Allergies: Does not bruise/bleed easily. Psychiatric/Behavior al: Negative for depression, substance abuse and suicidal ideas. The patient is not nervous/anxious and does not have insomnia. 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 90 Tablet 3 sulfamethoxazole-tri methoprim 800-160 MG (BACTRIM DS) 800-160 MG per tablet Take 1 tablet by mouth every Thursday, , and Thursday. 30 Tablet 5 mycophenolate (CELLCEPT) 500 MG tablet Take 1 Tablet by mouth 2 times daily. 120 Tablet 3 esomeprazole (NEXIUM) 40 MG capsule Take 1 Capsule by mouth daily (30 minutes before breakfast). (Patient not taking: Reported on 08/14/2022) 28 Capsule 1 No current facility-administere d medications for this encounter. ALLERGIES: Amoxacillin [amoxicillin] [...] and (more content not included)... Normal The [employer] Interface Message Text During this visit the vaccine(s) was: Administered Obtained informed verbal consent from patient/parent/patie nt business services representative for immunization(s) as ordered, questionnaire completed and VIS educational handouts reviewed with patient/parent/patie nt business services representative who denies contraindications and verbalizes understanding of indication, potential side effect and actions to be taken if side effects occur. Double identification of patient completed withpatient/parent/p atient business services representative using name and prior to administration, and patient tolerated immunization(s) administration without incident. Normal The [employer] Interface Message Text Patient was identified by name and date of . Maura Foxtient at risk for falls:No Falls Risk protocol implemented: No Normal [employer] Interface Message Text Patient was identified by [...] from clinic. Jasmyne Grimaldo RN Normal [employer] Interface Message Text Department of Hepatology Patient [...] 9 (more content not included)... Normal [facility] [employer] Authentication Interface Message Text .Patient was identified by name and date of . Carlydarlyn Halley .Patient at risk for falls:No Falls Risk protocol implemented: No Normal [facility] [employer] TOTAL PROTEIN WITH CREATININ E, RANDOM URINEon 08-14-2022 CREATININE, URINE 57 mg/dL Normal 10-300 [facility] [employer] Comment on above: Performed By: #### G ENTEST #### [facility] [address] [place] [address], Protein (U) [Mass/Vol] 7 mg/dL Normal <=100 [facility] [employer] Comment on above: Performed By: #### G ENTEST #### [facility] [address] [place] [address], TP/CREAT RATIO 123 mg/g Normal <=164 [facility] [employer] Comment on above: Performed By: #### G ENTEST #### [facility] [address] [place] [address], URIC ACIDon 08-14-2022 Urate [Mass/Vol] 1.9 mg/dL Low 2.0-7.3 [facility] [employer] [facility] Comment on above: Performed By: #### C H8, URIC, HEPATIC, LD #### [facility] [address] [place] [address], URINALYSIS WITH REFLEX CULTU RE PERFORMABLEon 08-14-2022 Glucose Ql (U) Negative Normal Negative [facility] [employer] Comment on above: Order Comment: A [...] 50%) Performed By: #### C BC #### [facility] [address] [place] [address], U APPEAR Clear Normal Clear [facility] [employer] Comment on above: Order Comment: A [...] 50%) Performed By: #### C BC #### [facility] [address] [place] [address], U BACTERIA Few Normal [facility] [employer] Comment on above: Order Comment: A [...] 50%) Performed By: #### C BC #### [facility] [address] [place] [address], U BILI Positive Abnormal Negative [facility] [employer] [facility] Comment on above: Order Comment: A [...] 50%) Performed By: #### C BC #### [facility] [address] [place] [address], U BLOOD Negative Normal Negative [facility] [employer] [facility] Comment on above: Order Comment: A [...] 50%) Performed By: #### C BC #### [facility] [address] [place] [address], U COLOR Light Yellow Normal Yellow [facility] [employer] [facility] Comment on above: Order Comment: A [...] 50%) Performed By: #### C BC #### [facility] [address] [place] [address], U KETONE Negative Normal Negative [facility] Comment on above: Order Comment: A [...] 50%) Performed By: #### C BC #### [facility] [address] [place] [address], U LEUK Moderate Abnormal Negative [facility] Comment on above: Order Comment: A [...] 50%) Performed By: #### C BC #### [facility] [address] [place] [address], U NITRITE Negative Normal Negative [facility] [employer] Comment on above: Order Comment: A [...] 50%) Performed By: #### C BC #### [facility] [address] [place] [address], U PH 7.0 Normal 5.0-8.0 [facility] [employer] [facility] Comment on above: Order Comment: A [...] 50%) Performed By: #### C BC #### [facility] [address] [place] [address], U PROTEIN Negative Normal Negative [facility] [employer] Comment on above: Order Comment: A [...] 50%) Performed By: #### C BC #### [facility] [address] [place] [address], U RBC 0-2 Normal 0-2 [facility] [employer] [facility] Comment on above: Order Comment: A [...] 50%) Performed By: #### C BC #### [facility] [address] [place] [address], U SG < 1.005 Low 1.005-1.030 [facility] [employer] [facility] Comment on above: Order Comment: A [...] 50%) Performed By: #### C BC #### [facility] [address] [place] [address], U UROBILI >=8.0 Abnormal 0.2 - 1.0 The [facility] Comment on above: Order Comment: A [...] 50%) Performed By: #### C BC #### [facility] [address] [place] [address], U WBC 6-10 Abnormal 0-2 The [facility] Comment on above: Order Comment: A [...] 50%) Performed By: #### C BC #### [facility] [address] [place] [address], URINE CULTUREon 08-14-2022 Bacteria identified Cx Nom (U) C URINE: Positive Culture Report KLEBSIELLA PNEUMONIAE >100,000 CFU/ml Klebsiella pneumoniae Normal [facility] Comment on above: Performed By: #### C BC #### [facility] [address] [place] [address], BHAVIN ORGANISM: KLEBSIELLA PNEUMONIAE ANTIBIOTIC BHAVIN SENSITIVITY Amoxicillin + Clavulanate 4 S Ampicillin + Sulbactam 8 S Cefazolin <= 4 S Cefepime <= 1 S Ceftazidime <= 1 S Ceftriaxone <= 1 S Ciprofloxacin <= 0.25 S Ertapenem <= 0.5 S Gentamicin <= 1 S Nitrofurantoin 64 I Piperacillin + Tazobactam <= 4 S Trimethoprim + Sulfamethoxazole >= 320 R Normal [facility] Comment on above: Performed By: #### C BC #### [facility] [address] [place] [address], US LEG RIGHT VENOUS + DOPPLE Froilan [...] venous thrombosis identified. MACRO: None Normal [facility] [employer] US.doppler Lower extremity v ein - righton [...] extremity deep venous thrombosis identified. MACRO: None [facility] Radiology Study observation (narrative) [facility] US.doppler Lower extremity v ein - rightOrdered By: Enrique Basurto on 08-14-2022 [facility] Work Phone: Basic metabolic 2000 panelon 05-06-2022 Anion gap [Moles/Vol] 11 mmol/L 10 - 20 Met [facility] Calcium [Mass/Vol] 8.9 mg/dL 8.4 - 10.4 mg/dL [facility] Chloride [Moles/Vol] 105 mmol/L 97 - 111 mmol/L [facility] CO2 [Moles/Vol] 25 mmol/L 21 - 30 mmol/L [facility] Creatinine [Mass/Vol] 0.58 mg/dL Low 0.8 - 1.3 mg/d L [facility] Comment on above: Grossly icteric; may falsely decrease creatinine GFR/1.73 sq M.predicted MDRD (S/P/Bld) [Vol rate/Area] 129 mL/min/{1.73_m2} - PINF [facility] Comment on above: 2020 CKD EPI [...] Inclusion of Race in Diagnosing Kidney Disease. [place] Journal of Kidney Diseases 202;79(2):268-88.e1. 2. N Engl J Med 2020 Vol. 385 Issue 19 Pages 3405-1026 Glucose [Mass/Vol] 79 mg/dL 68 - 110 mg/dL [facility] Interpretation and review of laboratory results Abnormal [facility] Potassium [Moles/Vol] 3.6 mmol/L 3.3 - 5.3 mmol /L [facility] Sodium [Moles/Vol] 137 mmol/L 135 - 148 mmol/L [facility] Urea nitrogen [Mass/Vol] 3 mg/dL Low 8 - 22 mg/dL [facility] CBC WITH DIFFERENTIALOrdered By: Isak Mitchell on 05-06-2022 Basophils (Bld) [#/Vol] 0.04 10*3/uL 0 - 0.2 K/uL [facility] Basophils/100 WBC (Bld) 0.9 % NINF - 1.9 % [facility] Eosinophils (Bld) [#/Vol] 0.12 10*3/uL 0 - 0.7 K/uL [facility] Eosinophils/100 WBC (Bld) 2.8 % 0.1 - 4 % [facility] Erythrocyte distribution width (RBC) [Ratio] 16.8 % High 11.5 - 14.5 % [facility] Hematocrit (Bld) [Volume fraction] 32.5 % Low 41 - 53 % [facility] Hemoglobin (Bld) [Mass/Vol] 11.5 g/dL Low 13.9 - 16.3 g/dL [facility] Interpretation and review of laboratory results Abnormal [...] (Bld) [#/Vol] 0.69 10*3/uL 0.2 - 1 K/uL [facility] Monocytes/100 WBC (Bld) 16.4 % High 2 - 11 % [facility] Neutrophils (Bld) [#/Vol] 2.21 10*3/uL 1.5 - 8 K/uL [facility] Neutrophils/100 WBC (Bld) 52.8 % 31 - 76 % [facility] Platelet mean volume (Bld) [Entitic vol] 7.9 fL 7.5 - 11.2 fL [facility] Platelets (Bld) [#/Vol] 90 10*3/uL Low 150 - 400 K/uL [facility] RBC (Bld) [#/Vol] 3.21 10*6/uL Low [facility] WBC (Bld) [#/Vol] 4.2 10*3/uL Low 4.5 - 11.5 K/uL [facility] HAPTOGLOBINon 05-06-2022 Haptoglobin [Mass/Vol] mg/dL Low 36 - 220 mg/dL [facility] Interpretation and review of laboratory results Abnormal [facility] HEPATIC FUNCTION PANELon Albumin [Mass/Vol] 3.0 g/dL Low 3.4 - 5.1 g/dL [facility] ALP [Catalytic activity/Vol] 373 U/L High [facility] ALT [Catalytic activity/Vol] 47 U/L High [facility] AST [Catalytic activity/Vol] 87 U/L High [facility] Bilirubin [Mass/Vol] 8.3 mg/dL High 0.1 - 1.5 mg/dL [facility] Bilirubin.direct [Mass/Vol] 1.50 mg/dL High 0.1 - 0.3 mg/dL [facility] Protein [Mass/Vol] 6.7 g/dL 6.2 - 8.3 g/dL [facility] LDHon 05-06-2022 LDH [Catalytic activity/Vol] 270 U/L High [facility] No Panel Informationon 05-06 Interpretation and review of laboratory results Abnormal [facility] URIC ACIDon 05-06-2022 Interpretation and review of laboratory results Normal [facility] Urate [Mass/Vol] 3.2 mg/dL 2 - 7.3 mg/dL [facility] Basic metabolic 2000 panelon 03-13-2022 Anion gap [Moles/Vol] 11 mmol/L Met [facility] Calcium [Mass/Vol] 8.2 mg/dL Low 8.4 - 10.4 mg/dL [facility] Chloride [Moles/Vol] 103 mmol/L 97 - 111 mmol/L [facility] CO2 [Moles/Vol] 25 mmol/L 21 - 30 mmol/L [facility] Creatinine [Mass/Vol] 0.51 mg/dL Low 0.80 - 1.30 mg /dL [facility] Comment on above: Grossly icteric; may falsely decrease creatinine GFR/1.73 sq M.predicted MDRD (S/P/Bld) [Vol rate/Area] 134 mL/min/{1.73_m2} >=60 mL/min/1.73sqm [facility] Comment on above: 2020 CKD EPI [...] Inclusion of Race in Diagnosing Kidney Disease. [place]an Journal of Kidney Diseases 202;79(2):268-88.e1. 2. N Engl J Med 1 Vol. 385 Issue 19 Pages 8981-0749 Glucose [Mass/Vol] 119 mg/dL High 68 - 110 mg/dL [facility] Interpretation and review of laboratory results Abnormal [facility] Potassium [Moles/Vol] 3.6 mmol/L 3.3 - 5.3 mmol /L [facility] Sodium [Moles/Vol] 135 mmol/L 135 - 148 mmol/L [facility] Urea nitrogen [Mass/Vol] 3 mg/dL Low 8 - 22 mg/dL [facility] CBC WITH DIFFERENTIALon Basophils (Bld) [#/Vol] 0.03 10*3/uL 0.00 - 0.20 K/uL [facility] Basophils/100 WBC (Bld) 0.8 % <=1.9 [facility] Eosinophils (Bld) [#/Vol] 0.20 10*3/uL 0.00 - 0.70 K/uL [facility] Eosinophils/100 WBC (Bld) 5.1 % High 0.1 - 4.0 % [facility] Erythrocyte distribution width (RBC) [Ratio] 16.2 % High 11.5 - 14.5 % [facility] Hematocrit (Bld) [Volume fraction] 28.4 % Low 41.0 - 53.0 % [facility] Hemoglobin (Bld) [Mass/Vol] 9.9 g/dL Low 13.9 - 16.3 g/dL [facility] Interpretation and review of laboratory results Abnormal [facility] Lymphocytes (Bld) [#/Vol] 1.56 10*3/uL 1.00 - 4.80 K/uL [facility] Lymphocytes/100 WBC (Bld) 39.3 % 24.0 - 44.0 % [facility] MCH (RBC) [Entitic mass] 35.4 pg High 26.0 - 34.0 pg [facility] MCHC (RBC) [Mass/Vol] 35.0 g/dL 32.0 - 35.9 g/ dL [facility] MCV (RBC) [Entitic vol] 101 fL High 80 - 100 fL [facility] Monocyte distribution width Auto (Bld) [Entitic vol] [facility] Monocytes (Bld) [#/Vol] 0.82 10*3/uL 0.20 - 1.00 K/uL [facility] Monocytes/100 WBC (Bld) 20.6 % High 2.0 - 11.0 % [facility] Neutrophils (Bld) [#/Vol] 1.35 10*3/uL Low 1.50 - 8.00 K/uL [facility] Neutrophils/100 WBC (Bld) 34.2 % 31.0 - 76.0 % [facility] Platelet mean volume (Bld) [Entitic vol] 7.3 fL Low 7.5 - 11.2 fL [facility] Platelets (Bld) [#/Vol] 114 10*3/uL Low 150 - 400 K/uL [facility] RBC (Bld) [#/Vol] 2.81 10*6/uL Low [facility] WBC (Bld) [#/Vol] 4.0 10*3/uL Low 4.5 - 11.5 K/uL [facility] and C hemistry - challengeon 03-13-2022 Albumin [Mass/Vol] 2.6 g/dL Low 3.4 - 5.1 g/dL [facility] ALP [Catalytic activity/Vol] 278 U/L High [facility] ALT [Catalytic activity/Vol] 33 U/L [facility] AST [Catalytic activity/Vol] 68 U/L High [facility] Bilirubin [Mass/Vol] 5.6 mg/dL High 0.1 - 1.5 mg/dL [facility] Bilirubin.direct [Mass/Vol] 1.20 mg/dL High 0.10 - 0.30 mg/dL [facility] LDH [Catalytic activity/Vol] 258 U/L High [facility] Protein [Mass/Vol] 6.2 g/dL 6.2 - 8.3 g/dL [facility] Urate [Mass/Vol] 3.0 mg/dL 2.0 - 7.3 mg/dL [facility] Laboratory - Hematology and Cell countson 03-13-2022 Haptoglobin [Mass/Vol] mg/dL Low 36 - 220 mg/dL [facility] No Panel Informationon 03-13 Interpretation and review of laboratory results Abnormal [facility] Interpretation and review of laboratory results Abnormal [facility] Interpretation and review of laboratory results Normal [facility] CHEMISTRYOrdered By: SYSTEM SYSTEM on 02-17-2022 Lactate [Mass/Vol] 1.8 mmol/L Normal 0.5 - 2.2 mmol/L [facility]isol Albumin [Mass/Vol] 2.8 g/dL Low 3.3 - 5.0 gm/dL [facility] Albumin/Globulin [Mass ratio] 0.7 {ratio} Low 1.1 - 2.2 [facility] ALP [Catalytic activity/Vol] 265 [iU]/d High [...] Bilirubin.direct [Mass/Vol] 1.6 mg/dL High 0.1 - 0.4 mg/dL [facility] Bilirubin.indirect [Mass or moles/Vol] 4.6 mg/dL High 0.1 - 0.9 mg/dL [facility] Calcium [Mass/Vol] 8.0 mg/dL Low 8.9 - 11.1 mg/dL [facility] Chloride [Moles/Vol] 102 mmol/L Normal 101 - 111 mmol/ L [facility] CO2 [Moles/Vol] 22 mmol/L Normal 21 - 31 mmol/L [facility] Creatinine [Mass/Vol] 0.5 mg/dL Normal 0.5 - 1.3 mg/d L [facility] GFR/1.73 sq M.predicted among blacks MDRD (S/P/Bld) [Vol rate/Area] mL/min/1.73 m2 Normal >=59mL/min/1.73 m2 [facility] Chem S GFR/1.73 sq M.predicted among non-blacks MDRD (S/P/Bld) [Vol rate/Area] mL/min/1.73 m2 Normal >=59mL/min/1.73 m2 [facility] Chem S Globulin (S) [Mass/Vol] 3.9 g/dL Normal 1.4 - 4.0 gm/dL [facility] Glucose [Mass/Vol] 123 mg/dL Normal 55 - 199 mg/dL [facility] Lipase [Catalytic activity/Vol] 68 U/L High 13 - 58 unit/L [facility] Potassium [Moles/Vol] 3.2 mmol/L Low 3.5 - 5.3 mmol /L [facility] Protein [Mass/Vol] 6.7 g/dL Normal 6.0 - 7.8 gm/dL [facility] Sodium [Moles/Vol] 133 mmol/L Low 135 - 145 mmol/L [facility] Urea nitrogen [Mass/Vol] 6 mg/dL Normal 5 - 21 mg/dL [facility] Urea nitrogen/Creatinine [Mass ratio] 12 mg/mg Normal 10 - 20 [facility] CHEMISTRYOrdered By: Trista Root on 02-17-2022 Natriuretic peptide B (Bld) [Mass/Vol] 142 pg/mL High 5 - 80 pg/mL FT [facility] HEMATOLOGYOrdered By: SYSTEM SYSTEM on 02-17-2022 Basophils/100 WBC (Bld) 0.9 % Normal 0.0 - 2.0 % [facility] Basophils/Leukocytes Auto (Bld) [Pure # fraction] 0.0 E9/L Normal 0.0 - 0.2 E9/L [facility] Eosinophils/100 WBC (Bld) 2.9 % Normal 0.0 - 8.0 % [facility] Eosinophils/Leukocyte s Auto (Bld) [Pure # fraction] 0.1 E9/L Normal 0.0 - 0.5 E9/L [facility] Lymphocytes/100 WBC (Bld) 30.1 % Normal 14.0 - 50.0 % [facility] Lymphocytes/Leukocyte s Auto (Bld) [Pure # fraction] 1.5 E9/L Normal 1.0 - 4.0 E9/L [facility] Monocytes/100 WBC (Bld) 12.8 % Normal 4.0 - 14.0 % [facility] Monocytes/Leukocytes Auto (Bld) [Pure # fraction] 0.6 E9/L Normal 0.2 - 1.0 E9/L [facility] Neutrophils/100 WBC (Bld) 53.3 % Normal 36.0 - 75.0 % [facility] Neutrophils/Leukocyte s Auto (Bld) [Pure # fraction] 2.6 E9/L Normal 2.0 - 7.5 E9/L [facility] HEMATOLOGYOrdered By: Angie Childers on 02-17-2022 Erythrocyte distribution width (RBC) [Ratio] 17.1 % High 10.9 - 14.2 % [facility] Hematocrit (Bld) [Volume fraction] 29.1 % Low 37.7 - 49.0 % [facility] Hemoglobin (Bld) [Mass/Vol] 10.4 g/dL Low 13.5 - 17.5 gm/dL [facility] MCH (RBC) [Entitic mass] 37.8 pg High 27.0 - 34.0 pg [facility] MCHC (RBC) [Mass/Vol] 35.7 g/dL Normal 31.4 - 36.0 gm /dL [facility] MCV (RBC) [Entitic vol] 105.8 fL High 80.0 - 100.0 fL [facility] Platelet mean volume (Bld) [Entitic vol] 7.3 fL Normal 6.4 - 10.8 fL [facility] Platelets (Bld) [#/Vol] 113.0 E9/L Low 150.0 - 500.0 E9/L [facility] Comment on above: Result Comment: Unab le to obtain accurate platelet count due to platelet clumping. Platelet count estimate appears normal on slide. RBC (Bld) [#/Vol] 2.8 E12/L Low 4.3 - 5.9 E12/L [facility] WBC corrected for nucl RBC Auto (Bld) [#/Vol] 4.9 E9/L Normal 4.0 - [...] [#/Area] 0-2 /HPF Normal 0-2/HPF [facility] UA Aut o SS Glucose Test strip (U) [Mass/Vol] Negative (02/17/22 1:14 PM) Normal Negative [facility] UA Auto SS Hemoglobin Ql (U) Negative (02/17/22 1:14 PM) Normal Negative [facility] UA Auto SS Ketones (U) [Mass/Vol] Negative (02/17/22 1:14 PM) Normal Negative [facility] UA Auto SS [place].plasma/Lith[place] m.RBC (Bld) [Mass ratio] 0-3 /HPF Normal 0-3/HPF [facility] UA Auto SS Nitrite Ql (U) Negative (02/17/22 1:14 PM) Normal Negative [facility] UA Auto SS pH (U) 7.0 *NA* (02/17/22 1:14 PM) Invalid Interpretation Code 5.0 - 9.0 [facility] UA Auto SS Protein (U) [Mass/Vol] Negative (02/17/22 1:14 PM) Normal Negative [facility] UA Auto SS Specific gravity (U) [Rel density] <=1.005 *NA* (02/17/22 1:14 PM) Invalid Interpretation Code 1.005 - 1.030 [facility]A Auto SS UA Spec Desc Clean Catch (02/17/22 1:14 PM) Normal [facility] UA Auto SS Urobilinogen Qn (U) [id number] {Alexey'U}/dL Normal 0.0 - 1.0 EU/dL [facility] UA Auto SS WBC Auto Ql (U) Negative (02/17/22 1:14 PM) Normal Negative [facility] UA Auto SS WBC LM.HPF (Urine sed) [#/Area] 0-5 /HPF Normal 0-5/HPF [facility] UA Auto SS Basic metabolic 2000 panelon 02-11-2022 Anion gap [Moles/Vol] 10 mmol/L [facility] Calcium [Mass/Vol] 8.2 mg/dL Low 8.4 - 10.4 mg/dL [facility] Chloride [Moles/Vol] 103 mmol/L 97 - 111 mmol/L [facility] CO2 [Moles/Vol] 24 mmol/L 21 - 30 [facility] [Mass/Vol] 0.49 mg/dL Low 0.80 - 1.30 mg /dL [facility] Comment on above: Grossly icteric; may falsely decrease creatinine GFR/1.73 sq M.predicted MDRD (S/P/Bld) [Vol rate/Area] 136 mL/min/{1.73_m2} >=60 mL/min/1.73sqm [facility] Comment on above: 2020 CKD EPI [...] Inclusion of Race in Diagnosing Kidney Disease. [place] Journal of Kidney Diseases 2021;79(2):268-88.e1. 2. N Engl J Med 2020 Vol. 385 Issue 19 Pages 7101-2167 Glucose [Mass/Vol] 105 mg/dL 68 - 110 mg/dL [facility] Interpretation and review of laboratory results Abnormal [facility] Potassium [Moles/Vol] 3.3 mmol/L 3.3 - 5.3 mmol /L [facility] Sodium [Moles/Vol] 134 mmol/L Low 135 - 148 mmol/L [facility] Urea nitrogen [Mass/Vol] 7 mg/dL Low 8 - 22 mg/dL [facility] CBC WITH DIFFERENTIALOrdered By: Ami Brock on 02-11-2022 Erythrocyte distribution width (RBC) [Ratio] 17.1 % High 11.5 - 14.5 % [facility] Hematocrit (Bld) [Volume fraction] 29.1 % Low 41.0 - 53.0 % [facility] Hemoglobin (Bld) [Mass/Vol] 10.0 g/dL Low 13.9 - 16.3 g/dL [facility] MCH (RBC) [Entitic mass] 37.3 pg High 26.0 - 34.0 pg [facility] MCHC (RBC) [Mass/Vol] 34.5 g/dL 32.0 - 35.9 g/ dL [facility] MCV (RBC) [Entitic vol] 108 fL High 80 - 100 fL [facility] Monocyte distribution width Auto (Bld) [Entitic vol] [facility] Platelet mean volume (Bld) [Entitic vol] 7.2 fL Low 7.5 - 11.2 fL [facility] Platelets (Bld) [#/Vol] 81 10*3/uL Low 150 - 400 K/uL [facility] RBC (Bld) [#/Vol] 2.69 10*6/uL Low [facility] WBC (Bld) [#/Vol] 4.9 10*3/uL 4.5 - 11.5 K/uL [facility] HAPTOGLOBINon 02-11-2022 Haptoglobin [Mass/Vol] mg/dL Low 36 - 220 mg/dL [facility] Interpretation and review of laboratory results Abnormal [facility] LDHon 02-11-2022 LDH [Catalytic activity/Vol] 321 U/L High [facility] Laboratory - Chemistry and C hemistry - challengeon 02-11-2022 Albumin [Mass/Vol] 2.8 g/dL Low 3.4 - 5.1 g/dL [facility] ALP [Catalytic activity/Vol] 226 U/L High [facility] ALT [Catalytic activity/Vol] 77 U/L High [facility] AST [Catalytic activity/Vol] 88 U/L High [facility] Bilirubin [Mass/Vol] 7.7 mg/dL High 0.1 - 1.5 mg/dL [facility] Bilirubin.direct [Mass/Vol] 1.70 mg/dL High 0.10 - 0.30 mg/dL [facility] Protein [Mass/Vol] 6.2 g/dL 6.2 - 8.3 g/dL [facility] MANUAL DIFF AND MORPHon Anisocytosis Ql (Bld) Slight [facility] Band form neutrophils/100 WBC (Bld) 5 % <=10 [facility] Bands # 0.25 K/uL High <0.01 [facility] Cells Counted Total (Bld) [#] 100 {cells} [facility] Eosinophils (Bld) [#/Vol] 0.15 10*3/uL 0.00 - 0.70 K/uL [facility] Eosinophils/100 WBC (Bld) 3.0 % 0.1 - 4.0 % [facility] Lymphocytes (Bld) [#/Vol] 1.08 10*3/uL 1.00 - 4.80 K/uL [facility] Lymphocytes/100 WBC (Bld) 22.0 % Low 24.0 - 44.0 % [facility] Metamyelocyte # 0.05 K/uL High <0.01 [facility] Met[facility]/100 WBC (Bld) 1 % High <0 [facility] Monocytes (Bld) [#/Vol] 0.54 10*3/uL 0.20 - 1.00 K/uL [facility] Monocytes/100 WBC (Bld) 11.0 % 2.0 - 11.0 % [facility] Neutrophils (Bld) [#/Vol] 2.84 10*3/uL 1.50 - 8.00 K/uL [facility] Neutrophils/100 WBC (Bld) 58.0 % 31.0 - 76.0 % [facility] Nucleated RBC/100 WBC (Bld) [Ratio] 1 % [facility] Nucleated RBCs 1 K/uL [facility] Polychromasia LM Ql (Bld) Slight [facility] No Panel InformationOrdered By: Ami Brock on 02-11-2022 Interpretation and review of laboratory results Abnormal [facility] No Panel Informationon 02-11 Interpretation and review of laboratory results Abnormal [facility] RETICULOCYTE COUNTOrdered By : Kennedi Fuentes on 02-11-2022 Immature reticulocytes/Total reticulocytes (Bld) 0.45 % [facility] Interpretation and review of laboratory results Abnormal [facility] Reticulocytes (Bld) [#/Vol] 0.08 10*3/uL [facility] Reticulocytes/100 RBC (Bld) 3.0 % High 0.5 - 1.5 % [facility] Basic metabolic 2000 panelon 01-17-2022 Anion gap [Moles/Vol] 13 mmol/L [facility] Calcium [Mass/Vol] 8.2 mg/dL Low 8.4 - 10.4 mg/dL [facility] Chloride [Moles/Vol] 99 mmol/L 97 - 111 mmol/L [facility] CO2 [Moles/Vol] 23 mmol/L 21 - 30 mmol/L [facility] Creatinine [Mass/Vol] 0.42 mg/dL Low 0.80 - 1.30 mg /dL [facility] GFR/1.73 sq M.predicted MDRD (S/P/Bld) [Vol rate/Area] 142 mL/min/{1.73_m2} >=60 mL/min/1.73sqm [facility] Glucose [Mass/Vol] 84 mg/dL 68 - 110 [facility] Potassium [Moles/Vol] 3.8 mmol/L 3.3 - 5.3 mmol /L [facility] Sodium [Moles/Vol] 131 mmol/L Low 135 - 148 mmol/L [facility] Urea nitrogen [Mass/Vol] 8 mg/dL 8 - 22 mg/dL [facility] CBC panel Auto (Bld)Ordered By: Isak Mitchell on 01-17-2022 Erythrocyte distribution width (RBC) [Ratio] 23.6 % High 11.5 - 14.5 % [facility] Hematocrit (Bld) [Volume fraction] 23.3 % Low 41.0 - 53.0 % [facility] Hemoglobin (Bld) [Mass/Vol] 8.0 g/dL Low 13.9 - 16.3 g/dL [facility] Interpretation and review of laboratory results Abnormal [facility] MCH (RBC) [Entitic mass] 38.1 pg High 26.0 - 34.0 pg [facility] MCHC (RBC) [Mass/Vol] 34.2 g/dL 32.0 - 35.9 g/ dL [facility] MCV (RBC) [Entitic vol] 111 fL High 80 - 100 fL [facility] Platelet mean volume (Bld) [Entitic vol] 9.2 fL 7.5 - 11.2 fL [facility] Platelets (Bld) [#/Vol] 96 10*3/uL Low 150 - 400 K/uL [facility] RBC (Bld) [#/Vol] 2.09 10*6/uL Low [facility] WBC (Bld) [#/Vol] 9.5 10*3/uL 4.5 - 11.5 K/uL [facility] GLUCOSE, FINGERSTICK-IN OFFI CEon 01-17-2022 Glucose [Mass/Vol] 188 mg/dL High 68 - 110 mg/dL [facility] Interpretation and review of laboratory results [facility] HAPTOGLOBINon 01-17-2022 Haptoglobin [Mass/Vol] mg/dL Low 36 - 220 mg/dL [facility] Interpretation and review of laboratory results Abnormal [facility] HEPATIC FUNCTION PANELon Albumin [Mass/Vol] 2.8 g/dL Low 3.4 - 5.1 g/dL [facility] ALP [Catalytic activity/Vol] 133 U/L [facility] ALT [Catalytic activity/Vol] 75 U/L [facility] AST [Catalytic activity/Vol] 94 U/L High [facility] Bilirubin [Mass/Vol] 12.6 mg/dL High 0.1 - 1.5 mg/dL [facility] Bilirubin.direct [Mass/Vol] 2.40 mg/dL High 0.10 - 0.30 mg/dL [facility] Protein [Mass/Vol] 6.7 g/dL 6.2 - 8.3 g/dL [facility] LDHon 01-17-2022 LDH [Catalytic activity/Vol] 514 U/L High [facility] No Panel Informationon 01-17 Interpretation and review of laboratory results Abnormal [facility] PROTHROMBIN TIME AND INRon 0 01-17-2022 INR Coag (PPP) [Relative time] 1.97 {INR} High [facility] Interpretation and review of laboratory results Abnormal [facility] PT Coag (PPP) [Time] 22.1 s High [facility] RETICULOCYTE COUNTon 022 Immature reticulocytes/Total reticulocytes (Bld) 0.61 % High [facility] Interpretation and review of laboratory results Abnormal [facility] Reticulocytes (Bld) [#/Vol] 0.14 10*3/uL High [facility] Reticulocytes/100 RBC (Bld) 6.5 % High 0.5 - 1.5 % [facility] Basic metabolic 2000 panelon 01-16-2022 Anion gap [Moles/Vol] 14 mmol/L [facility] Calcium [Mass/Vol] 8.3 mg/dL Low 8.4 - 10.4 mg/dL [facility] Chloride [Moles/Vol] 98 mmol/L 97 - 111 mmol/L [facility] CO2 [Moles/Vol] 24 mmol/L 21 - 30 mmol/L [facility] Creatinine [Mass/Vol] 0.42 mg/dL Low 0.80 - 1.30 mg /dL [facility] GFR/1.73 sq M.predicted MDRD (S/P/Bld) [Vol rate/Area] 142 mL/min/{1.73_m2} >=60 mL/min/1.73sqm [facility] Glucose [Mass/Vol] 102 mg/dL 68 - 110 mg/dL [facility] Potassium [Moles/Vol] 3.7 mmol/L 3.3 - 5.3 mmol /L [facility] Sodium [Moles/Vol] 132 mmol/L Low 135 - 148 mmol/L [facility] Urea nitrogen [Mass/Vol] 9 mg/dL 8 - 22 mg/dL [facility] CBC panel Auto (Bld)on 01-16 Erythrocyte distribution width (RBC) [Ratio] 23.7 % High 11.5 - 14.5 % [facility] Hematocrit (Bld) [Volume fraction] 21.6 % Low 41.0 - 53.0 % [facility] Hemoglobin (Bld) [Mass/Vol] 7.4 g/dL Low 13.9 - 16.3 g/dL [facility] Interpretation and review of laboratory results Abnormal [facility] MCH (RBC) [Entitic mass] 38.6 pg High 26.0 - 34.0 pg [facility] MCHC (RBC) [Mass/Vol] 34.4 g/dL 32.0 - 35.9 g/ dL [facility] MCV (RBC) [Entitic vol] 112 fL High 80 - 100 fL [facility] Platelet mean volume (Bld) [Entitic vol] 9.3 fL 7.5 - 11.2 fL [facility] Platelets (Bld) [#/Vol] 94 10*3/uL Low 150 - 400 K/uL [facility] RBC (Bld) [#/Vol] 1.92 10*6/uL [facility] [#/Vol] 9.2 10*3/uL 4.5 - 11.5 K/uL [facility] GLUCOSE, FINGERSTICK-IN OFFI CEon 01-16-2022 Glucose [Mass/Vol] 145 mg/dL High 68 - 110 mg/dL [facility] Interpretation and review of laboratory results Abnormal [facility] Glucose [Mass/Vol] 247 mg/dL High 68 - 110 mg/dL [facility] Interpretation and review of laboratory results Abnormal [facility] Glucose [Mass/Vol] 132 mg/dL High 68 - 110 mg/dL [facility] Interpretation and review of laboratory results [facility]normal [facility] Glucose [Mass/Vol] 90 mg/dL 68 - 110 mg/dL [facility] Interpretation and review of laboratory results Normal [facility] HAPTOGLOBINon 01-16-2022 Haptoglobin [Mass/Vol] mg/dL Low 36 - 220 mg/dL [facility] Interpretation and review of laboratory results Abnormal [facility] HEPATIC FUNCTION PANELon Albumin [Mass/Vol] 2.7 g/dL Low 3.4 - 5.1 g/dL [facility] ALP [Catalytic activity/Vol] 124 U/L [facility] ALT [Catalytic activity/Vol] 69 U/L [facility] AST [Catalytic activity/Vol] 93 U/L High [facility] Bilirubin [Mass/Vol] 12.7 mg/dL High 0.1 - 1.5 mg/dL [facility] Bilirubin.direct [Mass/Vol] 2.30 mg/dL High 0.10 - 0.30 mg/dL [facility] Protein [Mass/Vol] 6.3 g/dL 6.2 - 8.3 g/dL [facility] LDHon 01-16-2022 LDH [Catalytic activity/Vol] 476 U/L High [facility] No Panel Informationon 01-16 Interpretation and review of laboratory results Abnormal [facility] PROTHROMBIN TIME AND INRon 0 01-16-2022 INR Coag (PPP) [Relative time] 2.08 {INR} High [facility] Interpretation and review of laboratory results Abnormal [facility] PT Coag (PPP) [Time] 23.3 s High [facility] Basic metabolic 2000 panelon 01-15-2022 Anion gap [Moles/Vol] 14 mmol/L [facility] Calcium [Mass/Vol] 7.9 mg/dL Low 8.4 - 10.4 mg/dL [facility] Chloride [Moles/Vol] 97 mmol/L 97 - 111 mmol/L [facility] CO2 [Moles/Vol] 25 mmol/L 21 - 30 mmol/L [facility] Creatinine [Mass/Vol] 0.42 mg/dL Low 0.80 - 1.30 mg /dL [facility] GFR/1.73 sq M.predicted MDRD (S/P/Bld) [Vol rate/Area] 142 mL/min/{1.73_m2} >=60 mL/min/1.73sqm [facility] Glucose [Mass/Vol] 112 mg/dL High 68 - 110 mg/dL [facility] Potassium [Moles/Vol] 3.5 mmol/L 3.3 - 5.3 mmol /L [facility] Sodium [Moles/Vol] 132 mmol/L Low 135 - 148 mmol/L [facility] Urea nitrogen [Mass/Vol] 8 mg/dL 8 - 22 mg/dL [facility] CBC panel Auto (Bld)on 01-15 Erythrocyte distribution width (RBC) [Ratio] 24.4 % High 11.5 - 14.5 % [facility] Hematocrit (Bld) [Volume fraction] 21.1 % Low 41.0 - 53.0 % [facility] Hemoglobin (Bld) [Mass/Vol] 7.3 g/dL Low 13.9 - 16.3 g/dL [facility] Interpretation and review of laboratory results Abnormal [facility] MCH (RBC) [Entitic mass] 38.7 pg High 26.0 - 34.0 pg [facility] MCHC (RBC) [Mass/Vol] 34.4 g/dL 32.0 - 35.9 g/ dL [facility] MCV (RBC) [Entitic vol] 113 fL High 80 - 100 fL [facility] Platelet mean volume (Bld) [Entitic vol] 9.8 fL 7.5 - 11.2 fL [facility] Platelets (Bld) [#/Vol] 74 10*3/uL Low 150 - 400 K/uL [facility] RBC (Bld) [#/Vol] 1.88 10*6/uL [facility] WBC (Bld) [#/Vol] 8.9 10*3/uL 4.5 - 11.5 K/uL [facility] GLUCOSE, FINGERSTICK-IN OFFI CEon 01-15-2022 Glucose [Mass/Vol] 149 mg/dL High 68 - 110 mg/dL [facility] Interpretation and review of laboratory results Abnormal [facility] Glucose [Mass/Vol] 175 mg/dL High 68 - 110 mg/dL [facility] Interpretation and review of laboratory results Abnormal [facility] Glucose [Mass/Vol] 129 mg/dL High 68 - 110 mg/dL [facility] Interpretation and review of laboratory results Abnormal [facility] Glucose [Mass/Vol] 148 mg/dL High 68 - 110 mg/dL [facility] Interpretation and review of laboratory results [facility] HAPTOGLOBINon 01-15-2022 Haptoglobin [Mass/Vol] mg/dL Low 36 - 220 mg/dL [facility] Interpretation and review of laboratory results Abnormal [facility] HEPATIC FUNCTION PANELon Albumin [Mass/Vol] 2.6 g/dL Low 3.4 - 5.1 g/dL [facility] ALP [Catalytic activity/Vol] 182 U/L [facility] ALT [Catalytic activity/Vol] 65 U/L High [facility] AST [Catalytic activity/Vol] 104 U/L [facility] Bilirubin [Mass/Vol] 10.8 mg/dL High 0.1 - 1.5 mg/dL [facility] Bilirubin.direct [Mass/Vol] 2.10 mg/dL High 0.10 - 0.30 mg/dL [facility] Protein [Mass/Vol] 6.5 g/dL 6.2 - 8.3 g/dL [facility] LDHon 01-15-2022 LDH [Catalytic activity/Vol] 481 U/L High [facility] No Panel Informationon 01-15 Interpretation and review of laboratory results Abnormal [facility] PROTHROMBIN TIME AND INRon 0 01-15-2022 INR Coag (PPP) [Relative time] 1.89 {INR} High [facility] Interpretation and review of laboratory results Abnormal [facility] PT Coag (PPP) [Time] 21.2 s High [facility] Basic metabolic 2000 panelon 01-14-2022 Anion gap [Moles/Vol] 11 mmol/L [facility] Calcium [Mass/Vol] 8.2 mg/dL Low 8.4 - 10.4 mg/dL [facility] Chloride [Moles/Vol] 101 mmol/L 97 - 111 mmol/L [facility] CO2 [Moles/Vol] 27 mmol/L 21 - 30 mmol/L [facility] Creatinine [Mass/Vol] 0.44 mg/dL Low 0.80 - 1.30 mg /dL [facility] GFR/1.73 sq M.predicted MDRD (S/P/Bld) [Vol rate/Area] 140 mL/min/{1.73_m2} >=60 mL/min/1.73sqm [facility] Glucose [Mass/Vol] 136 mg/dL High 68 - 110 mg/dL [facility] Potassium [Moles/Vol] 3.4 mmol/L 3.3 - 5.3 mmol /L [facility] Sodium [Moles/Vol] 136 mmol/L 135 - 148 mmol/L [facility] Urea nitrogen [Mass/Vol] 6 mg/dL Low 8 - 22 mg/dL [facility] CBC WITH DIFFERENTIALOrdered By: Erika Martin on 01-14-2022 Erythrocyte distribution width (RBC) [Ratio] 24.1 % High 11.5 - 14.5 % [facility] Hematocrit (Bld) [Volume fraction] 21.3 % Low 41.0 - 53.0 % [facility] Hemoglobin (Bld) [Mass/Vol] 7.3 g/dL Low 13.9 - 16.3 g/dL [facility] MCH (RBC) [...] 2.0 % [facility] Platelet mean volume (Bld) [Entitic vol] 9.4 fL 7.5 - 11.2 fL [facility] Platelets (Bld) [#/Vol] 65 10*3/uL Low 150 - 400 K/uL [facility] RBC (Bld) [#/Vol] 1.91 10*6/uL Low [facility] WBC (Bld) [#/Vol] 7.3 10*3/uL 4.5 - 11.5 K/uL [facility] FIBRINOGENOrdered By: Elvia Humphrey on 01-14-2022 Fibrin+Fibrinogen fragments (S) [Mass/Vol] 122 mg/dL Low 200 - 500 mg/dL [facility] Interpretation and review of laboratory results Abnormal [facility] GLUCOSE, FINGERSTICK-IN OFFI CEon 01-14-2022 Glucose [Mass/Vol] 139 mg/dL High 68 - 110 mg/dL [facility] Interpretation and review of laboratory results Abnormal [facility] Glucose [Mass/Vol] 203 mg/dL High 68 - 110 mg/dL [facility] Interpretation and review of laboratory results Abnormal [facility] Glucose [Mass/Vol] 143 mg/dL High 68 - 110 mg/dL [facility] Interpretation and review of laboratory results Abnormal [facility] Glucose [Mass/Vol] 154 mg/dL High 68 - 110 mg/dL [facility] Interpretation and review of laboratory results [facility]normal [facility] HAPTOGLOBINon 01-14-2022 Haptoglobin [Mass/Vol] mg/dL Low 36 - 220 mg/dL [facility] Interpretation and review of laboratory results Abnormal [facility] HEPATIC FUNCTION PANELon Albumin [Mass/Vol] 2.6 g/dL Low 3.4 - 5.1 g/dL [facility] ALP [Catalytic activity/Vol] 177 U/L [facility] ALT [Catalytic activity/Vol] 62 U/L High [facility] AST [Catalytic activity/Vol] 104 U/L High [facility] Bilirubin [Mass/Vol] 11.5 mg/dL High 0.1 - 1.5 mg/dL [facility] Bilirubin.direct [Mass/Vol] 2.20 mg/dL High 0.10 - 0.30 mg/dL [facility] Protein [Mass/Vol] 6.4 g/dL 6.2 - 8.3 g/dL [facility] LDHon 01-14-2022 LDH [Catalytic activity/Vol] 473 U/L High [facility] Laboratory - Microbiology an d Antimicrobial susceptibilityon 01-14-2022 Bacteria identified Cx Nom (Bld) No Growth [facility] MANUAL DIFF AND MORPHon 01-05 Anisocytosis Ql (Bld) Marked [facility] [place] cells LM Ql (Bld) Few [facility] Cells Counted Total (Bld) [#] 100 {cells} [facility] Eosinophils (Bld) [#/Vol] 0.15 10*3/uL 0.00 - 0.70 K/uL [facility] Eosinophils/100 WBC (Bld) 2.0 % 0.1 - 4.0 % [facility] Lymphocytes (Bld) [#/Vol] 1.46 10*3/uL 1.00 - 4.80 K/uL [facility] Lymphocytes/100 WBC (Bld) 20.0 % Low 24.0 - 44.0 % [facility] Macrocytes Ql (Bld) Moderate [facility] Metamyelocyte # 0.07 K/uL High <0.01 [facility] Metamyelocytes/100 WBC (Bld) 1 % High <0 [facility] Monocytes (Bld) [#/Vol] 0.66 10*3/uL 0.20 - 1.00 K/uL [facility] Monocytes/100 WBC (Bld) 9.0 % 2.0 - 11.0 % [facility] Myelocyte # 0.15 K/uL High <0.01 [facility] Myelocytes 2 % High <0 [facility] Neutrophils (Bld) [#/Vol] 4.82 10*3/uL 1.50 - 8.00 K/uL [facility] Neutrophils/100 WBC (Bld) 66.0 % 31.0 - 76.0 % [facility] Ovalocytes LM Ql (Bld) Few [facility] Polychromasia LM Ql (Bld) Slight [facility] Schistocytes LM Ql (Bld) Few [facility] Target cells LM Ql (Bld) Few [facility] No Panel Informationon 01-14 Interpretation and review of laboratory results [facility] Interpretation and review of laboratory results Abnormal [facility] No Panel InformationOrdered By: Erika Martin on 01-14-2022 Interpretation and review of laboratory results [facility] PROTHROMBIN TIME AND INRon 0 01-14-2022 INR Coag (PPP) [Relative time] 1.94 {INR} High [facility] Interpretation and review of laboratory results Abnormal [facility] PT Coag (PPP) [Time] 21.8 s High [facility] Basic metabolic 2000 panelon 01-13-2022 Anion gap [Moles/Vol] 10 mmol/L [facility] Calcium [Mass/Vol] 8.1 mg/dL Low 8.4 - 10.4 mg/dL [facility] Chloride [Moles/Vol] 99 mmol/L 97 - 111 mmol/L [facility] CO2 [Moles/Vol] 29 mmol/L 21 - 30 mmol/L [facility] Creatinine [Mass/Vol] 0.40 mg/dL Low 0.80 - 1.30 mg /dL [facility] GFR/1.73 sq M.predicted MDRD (S/P/Bld) [Vol rate/Area] 144 mL/min/{1.73_m2} >=60 mL/min/1.73sqm [facility] Glucose [Mass/Vol] 130 mg/dL High 68 - 110 mg/dL [facility] Potassium [Moles/Vol] 3.4 mmol/L 3.3 - 5.3 mmol /L [facility] Sodium [Moles/Vol] 135 mmol/L 135 - 148 mmol/L [facility] Urea nitrogen [Mass/Vol] 6 mg/dL Low 8 - 22 mg/dL [facility] CBC WITH DIFFERENTIALon Erythrocyte distribution width (RBC) [Ratio] 24.4 % High 11.5 - 14.5 % [facility] Hematocrit (Bld) [Volume fraction] 19.3 % Critically low 41.0 - 53.0 % [facility] Hemoglobin (Bld) [Mass/Vol] 6.7 g/dL Critically low 13.9 - 16.3 g/dL [facility] MCH (RBC) [Entitic mass] 38.1 pg High 26.0 - 34.0 pg [facility] MCHC (RBC) [Mass/Vol] 34.7 g/dL 32.0 - 35.9 g/ dL [facility] MCV (RBC) [Entitic vol] 110 fL High 80 - 100 fL [facility] Monocyte distribution width Auto (Bld) [Entitic vol] [facility] Nucleated RBC (Bld) [#/Vol] 0.22 10*3/uL [facility] Nucleated RBC/100 WBC (Bld) [Ratio] 3.0 % [facility] Platelet mean volume (Bld) [Entitic vol] 8.9 fL 7.5 - 11.2 fL [facility] Platelets (Bld) [#/Vol] 67 10*3/uL Low 150 - 400 K/uL [facility] RBC (Bld) [#/Vol] 1.76 10*6/uL Low [facility] WBC (Bld) [#/Vol] 7.3 10*3/uL 4.5 - 11.5 K/uL [facility] COPPERon 01-13-2022 Copper [Mass/Vol] 63 Low [facility] Interpretation and review of laboratory results [facility] FACTOR VIII ASSAYOrdered By: Jozef Gibbons on 01-13-2022 Factor VIII Assay 356 % High 55 - 180 % [facility] alth Interpretation and review of laboratory results Abnormal [facility] GLUCOSE, FINGERSTICK-IN OFFI CEon 01-13-2022 Glucose [Mass/Vol] 185 mg/dL High 68 - 110 mg/dL [facility] Glucose [Mass/Vol] 226 mg/dL High 68 - 110 mg/dL [facility] Glucose [Mass/Vol] 152 mg/dL High 68 - 110 mg/dL [facility] Interpretation and review of laboratory results Abnormal [facility] Glucose [Mass/Vol] 140 mg/dL High 68 - 110 mg/dL [facility] Interpretation and review of laboratory results Abnormal [facility] HAPTOGLOBINon 01-13-2022 Haptoglobin [Mass/Vol] mg/dL Low 36 - 220 mg/dL [facility] Interpretation and review of laboratory results Abnormal [facility] HEPATIC FUNCTION PANELon Albumin [Mass/Vol] 2.6 g/dL Low 3.4 - 5.1 g/dL [facility] ALP [Catalytic activity/Vol] 169 U/L [facility] ALT [Catalytic activity/Vol] 63 U/L High [facility] AST [Catalytic activity/Vol] 124 U/L High [facility] Bilirubin [Mass/Vol] 11.4 mg/dL High 0.1 - 1.5 mg/dL [facility] Bilirubin.direct [Mass/Vol] 2.10 mg/dL High 0.10 - 0.30 mg/dL [facility] Protein [Mass/Vol] 6.2 g/dL 6.2 - 8.3 g/dL [facility] HEPATITIS C QUANT BY PCROrde red By: Gera Meza on 01-13-2022 HCV RNA panel ANGIE+probe Not detected Not Detected [facility] LDHon 01-13-2022 LDH [Catalytic activity/Vol] 497 U/L High [facility] MANUAL DIFF AND MORPHon Anisocytosis Ql (Bld) Marked [facility] Atypical Lymph # 0.15 K/uL [facility] lth Band form neutrophils/100 WBC (Bld) 8 % <=10 [facility] Bands # 0.58 K/uL High <0.01 [facility] [place] cells LM Ql (Bld) Few [facility] Cells Counted Total (Bld) [#] 100 {cells} [facility] Lymphocytes (Bld) [#/Vol] 1.10 10*3/uL 1.00 - 4.80 K/uL [facility] Lymphocytes/100 WBC (Bld) 15.0 % Low 24.0 - 44.0 % [facility] Macrocytes Ql (Bld) Moderate [facility] Metamyelocyte # 0.07 K/uL High <0.01 [facility] Metamyelocytes/100 WBC (Bld) 1 % High <0 [facility] Monocytes (Bld) [#/Vol] 0.07 10*3/uL Low 0.20 - 1.00 K/uL [facility] Monocytes/100 WBC (Bld) 1.0 % Low 2.0 - 11.0 % [facility] Myelocyte # 0.29 K/uL High <0.01 [facility] Myelocytes 4 % High <0 [facility] Neutrophils (Bld) [#/Vol] 5.04 10*3/uL 1.50 - 8.00 K/uL [facility] Neutrophils/100 WBC (Bld) 69.0 % 31.0 - 76.0 % [facility] Polychromasia LM Ql (Bld) Moderate [facility] Target cells LM Ql (Bld) Few [facility] Variant lymphocytes/100 WBC (Bld) 2 % [facility] No Panel Informationon 01-13 Interpretation and review of laboratory results Abnormal [facility] Interpretation and review of laboratory results Abnormal [facility] Interpretation and review of laboratory results Abnormal [facility] PROTHROMBIN TIME AND INRon 0 01-13-2022 INR Coag (PPP) [Relative time] 2.05 {INR} High [facility] Interpretation and review of laboratory results Abnormal [facility] PT Coag (PPP) [Time] 23.0 s High [facility] Basic metabolic 2000 panelon 01-12-2022 Anion gap [Moles/Vol] 11 mmol/L [facility] Calcium [Mass/Vol] 7.9 mg/dL Low 8.4 - 10.4 mg/dL [facility] Chloride [Moles/Vol] 98 mmol/L 97 - 111 mmol/L [facility] CO2 [Moles/Vol] 26 mmol/L 21 - 30 mmol/L [facility] Creatinine [Mass/Vol] 0.39 mg/dL Low 0.80 - 1.30 mg /dL [facility] GFR/1.73 sq M.predicted MDRD (S/P/Bld) [Vol rate/Area] 145 mL/min/{1.73_m2} >=60 mL/min/1.73sqm [facility] Glucose [Mass/Vol] 147 mg/dL High 68 - 110 mg/dL [facility] Interpretation and review of laboratory results Abnormal [facility] Potassium [Moles/Vol] 3.2 mmol/L Low 3.3 - 5.3 mmol /L [facility] Sodium [Moles/Vol] 132 mmol/L Low 135 - 148 mmol/L [facility] Urea nitrogen [Mass/Vol] 6 mg/dL Low 8 - 22 mg/dL [facility] CBC WITH DIFFERENTIALOrdered By: Tayla Strickland on 01-12-2022 Erythrocyte distribution width (RBC) [Ratio] 25.3 % High 11.5 - 14.5 % [facility] Hematocrit (Bld) [Volume fraction] 19.5 % Critically low 41.0 - 53.0 % [facility] Hemoglobin (Bld) [Mass/Vol] 6.6 g/dL Critically low 13.9 - 16.3 g/dL [facility] MCH (RBC) [Entitic mass] 38.2 pg High 26.0 - 34.0 pg [facility] MCHC (RBC) [Mass/Vol] 33.9 g/dL 32.0 - 35.9 g/ dL [facility] MCV (RBC) [Entitic vol] 113 fL High 80 - 100 fL [facility] Monocyte distribution width Auto (Bld) [Entitic vol] [facility] Nucleated RBC (Bld) [#/Vol] 0.12 10*3/uL [facility] Nucleated RBC/100 WBC (Bld) [Ratio] 1.6 % [facility] Platelet mean volume (Bld) [Entitic vol] 8.8 fL 7.5 - 11.2 fL [facility] Platelets (Bld) [#/Vol] 69 10*3/uL Low 150 - 400 K/uL [facility] RBC (Bld) [#/Vol] 1.73 10*6/uL Low [facility] WBC (Bld) [#/Vol] 7.8 10*3/uL 4.5 - 11.5 K/uL [facility] CBC WITH DIFFERENTIALon Basophils (Bld) [#/Vol] 0.06 10*3/uL 0.00 - 0.20 K/uL [facility] Basophils/100 WBC (Bld) 0.7 % <=1.9 [facility] Eosinophils (Bld) [#/Vol] 0.08 10*3/uL 0.00 - 0.70 K/uL [facility] Eosinophils/100 WBC (Bld) 0.9 % [...] Lymphocytes (Bld) [#/Vol] 1.66 10*3/uL 1.00 - 4.80 K/uL [facility] Lymphocytes/100 WBC (Bld) 20.7 % Low 24.0 - 44.0 % [facility] MCH (RBC) [Entitic mass] 38.1 pg High 26.0 - 34.0 pg [facility] MCHC (RBC) [Mass/Vol] 35.0 g/dL 32.0 - 35.9 g/ dL [facility] MCV (RBC) [Entitic vol] 109 fL High 80 - 100 fL [facility] Monocyte distribution width Auto (Bld) [Entitic vol] [facility] Monocytes (Bld) [#/Vol] 0.91 10*3/uL 0.20 - 1.00 K/uL [facility] Monocytes/100 WBC (Bld) 11.3 % High 2.0 - 11.0 % [facility] Neutrophils (Bld) [#/Vol] 5.32 10*3/uL 1.50 - 8.00 K/uL [facility] Neutrophils/100 WBC (Bld) 66.4 % 31.0 - 76.0 % [facility] Platelet mean volume (Bld) [Entitic vol] 8.7 fL 7.5 - 11.2 fL [facility] Platelets (Bld) [#/Vol] 59 10*3/uL Low 150 - 400 K/uL [facility] RBC (Bld) [#/Vol] 1.72 10*6/uL Low [facility] WBC (Bld) [#/Vol] 8.0 10*3/uL 4.5 - 11.5 K/uL [facility] GLUCOSE, FINGERSTICK-IN OFFI CEon 01-12-2022 Glucose [Mass/Vol] 140 mg/dL High 68 - 110 mg/dL [facility] Interpretation and review of laboratory results Abnormal [facility] Glucose [Mass/Vol] 157 mg/dL High 68 - 110 mg/dL [facility] Interpretation and review of laboratory results [facility]normal [facility] HAPTOGLOBINon 01-12-2022 Haptoglobin [Mass/Vol] mg/dL Low 36 - 220 mg/dL [facility] Interpretation and review of laboratory results Abnormal [facility] HEPATIC FUNCTION PANELon Albumin [Mass/Vol] 2.6 g/dL Low 3.4 - 5.1 g/dL [facility] ALP [Catalytic activity/Vol] 148 U/L [facility] ALT [Catalytic activity/Vol] 61 U/L High [facility] AST [Catalytic activity/Vol] 131 U/L High [facility] Bilirubin [Mass/Vol] 11.1 mg/dL High 0.1 - 1.5 mg/dL [facility] Bilirubin.direct [Mass/Vol] 2.10 mg/dL High 0.10 - 0.30 mg/dL [facility] Protein [Mass/Vol] 6.4 g/dL 6.2 - 8.3 g/dL [facility] LDHon 01-12-2022 LDH [Catalytic activity/Vol] 458 U/L High [facility] MANUAL DIFF AND MORPHon Anisocytosis Ql (Bld) Moderate [facility] Band form neutrophils/100 WBC (Bld) 3 % <=10 [facility] Bands # 0.23 K/uL High <0.01 [facility] [place] cells LM Ql (Bld) Few [facility] Cells Counted Total (Bld) [#] 100 {cells} [facility] Lymphocytes (Bld) [#/Vol] 0.62 10*3/uL Low 1.00 - 4.80 K/uL [facility] Lymphocytes/100 WBC (Bld) 8.0 % Low 24.0 - 44.0 % [facility] Metamyelocyte # 0.16 K/uL High <0.01 [facility] th Metamyelocytes/100 WBC (Bld) 2 % High <0 [facility] Monocytes (Bld) [#/Vol] 0.94 10*3/uL 0.20 - 1.00 K/uL [facility] Monocytes/100 WBC (Bld) 12.0 % High 2.0 - 11.0 % [facility] Myelocyte # 0.08 K/uL High <0.01 [facility] Myelocytes 1 % High <0 [facility] Neutrophils (Bld) [#/Vol] 5.77 10*3/uL 1.50 - 8.00 K/uL [facility] Neutrophils/100 WBC (Bld) 74.0 % 31.0 - 76.0 % [facility] Nucleated RBC/100 WBC (Bld) [Ratio] 5 % [facility] Nucleated RBCs 5 K/uL [facility] Ovalocytes LM Ql (Bld) Few [facility] Polychromasia LM Ql (Bld) Slight [facility] Anisocytosis Ql (Bld) Marked [facility] [place] cells LM Ql (Bld) Few [facility] Cells Counted Total (Bld) [#] [facility] Macrocytes [...] panelon 01-11-2022 Anion gap [Moles/Vol] 10 mmol/L [facility] Calcium [Mass/Vol] 8.0 mg/dL Low 8.4 - 10.4 mg/dL [facility] Chloride [Moles/Vol] 101 mmol/L 97 - 111 mmol/L [facility] CO2 [Moles/Vol] 25 mmol/L 21 - 30 mmol/L [facility] Creatinine [Mass/Vol] 0.43 mg/dL Low 0.80 - 1.30 mg /dL [facility] GFR/1.73 sq M.predicted MDRD (S/P/Bld) [Vol rate/Area] 141 mL/min/{1.73_m2} >=60 mL/min/1.73sqm [facility] Glucose [Mass/Vol] 149 mg/dL High 68 - 110 mg[facility]dL [facility] Potassium [Moles/Vol] 3.4 mmol/L 3.3 - 5.3 mmol /L [facility] Sodium [Moles/Vol] 133 mmol/L Low 135 - 148 mmol/L [facility] Urea nitrogen [Mass/Vol] 5 mg/dL Low 8 - 22 mg/dL [facility] CBC WITH DIFFERENTIALOrdered By: Nasrin Barr [...] [Entitic vol] [facility] Platelet mean volume (Bld) [Entitic vol] 9.4 fL 7.5 - 11.2 fL [facility] Platelets (Bld) [#/Vol] 88 10*3/uL Low 150 - 400 K/uL [facility] RBC (Bld) [#/Vol] 1.61 10*6/uL Low [facility] WBC (Bld) [#/Vol] 7.2 10*3/uL 4.5 - 11.5 K/uL [facility] CBC WITH DIFFERENTIALon 05-0 Basophils (Bld) [#/Vol] 0.04 10*3/uL 0.00 - 0.20 K/uL [facility] Basophils/100 WBC (Bld) 0.5 % <=1.9 [facility] Eosinophils (Bld) [#/Vol] 0.02 10*3/uL 0.00 - 0.70 K/uL [facility] Eosinophils/100 WBC (Bld) 0.2 % [...] (Bld) [#/Vol] 0.93 10*3/uL Low 1.00 - 4.80 K/uL [facility] Lymphocytes/100 WBC (Bld) 12.7 % Low 24.0 - 44.0 % [facility] MCH (RBC) [Entitic mass] 38.2 pg High 26.0 - 34.0 pg [facility] MCHC (RBC) [Mass/Vol] 35.3 g/dL 32.0 - 35.9 g/ dL [facility] MCV (RBC) [Entitic vol] 108 fL High 80 - 100 fL [facility] Monocyte distribution width Auto (Bld) [Entitic vol] [facility] Monocytes (Bld) [#/Vol] 0.96 10*3/uL 0.20 - 1.00 K/uL [facility] Monocytes/100 WBC (Bld) 13.3 % High 2.0 - 11.0 % [facility] Neutrophils (Bld) [#/Vol] 5.33 10*3/uL 1.50 - 8.00 K/uL [facility] Neutrophils/100 WBC (Bld) 73.3 % 31.0 - 76.0 % [facility] Platelet mean volume (Bld) [Entitic vol] 8.4 fL 7.5 - 11.2 fL [facility] Platelets (Bld) [#/Vol] 62 10*3/uL Low 150 - 400 K/uL [facility] RBC (Bld) [#/Vol] 1.54 10*6/uL Low [facility] WBC (Bld) [#/Vol] 7.3 10*3/uL 4.5 - 11.5 K/uL [facility] GLUCOSE, FINGERSTICK-IN OFFI CEon 01-11-2022 Glucose [Mass/Vol] 167 mg/dL High 68 - 110 mg/dL [facility] Interpretation and review of laboratory results Abnormal [facility] HAPTOGLOBINon 01-11-2022 Haptoglobin [Mass/Vol] mg/dL Low 36 - 220 mg/dL [facility] Interpretation and review of laboratory results Abnormal [facility] HEPATIC FUNCTION PANELon Albumin [Mass/Vol] 2.6 g/dL Low 3.4 - 5.1 g/dL [facility] ALP [Catalytic activity/Vol] 95 U/L [facility] ALT [Catalytic activity/Vol] 57 U/L High [facility] AST [Catalytic activity/Vol] 143 U/L High [facility] Bilirubin [Mass/Vol] 11.4 mg/dL High 0.1 - 1.5 mg/dL [facility] Bilirubin.direct [Mass/Vol] 2.20 mg/dL High 0.10 - 0.30 mg/dL [facility] Protein [Mass/Vol] 5.7 g/dL Low 6.2 - 8.3 g/dL [facility] LDHon 01-11-2022 LDH [Catalytic activity/Vol] 428 U/L High [facility] Laboratory - Blood bankon ABO and Rh group Nom (Bld) Blood group A Rh(D) positive [facility] MAGNESIUMon 01-11-2022 Interpretation and review of laboratory results Normal [facility] Magnesium [Mass/Vol] 2.0 mg/dL 1.6 - 2.8 mg/dL [facility] MANUAL DIFF AND MORPHon Band form neutrophils/100 WBC (Bld) 3 % <=10 [facility] Bands # 0.22 K/uL High <0.01 [facility] [place] cells LM Ql (Bld) Few [facility] Cells Counted Total (Bld) [#] 100 {cells} [facility] Eosinophils (Bld) [#/Vol] 0.14 10*3/uL 0.00 - 0.70 K/uL [facility] Eosinophils/100 WBC (Bld) 2.0 % 0.1 - 4.0 % [facility] Lymphocytes (Bld) [#/Vol] 0.72 10*3/uL Low 1.00 - 4.80 K/uL [facility] Lymphocytes/100 WBC (Bld) 10.0 % Low 24.0 - 44.0 % [facility] Macrocytes Ql (Bld) Marked [facility] Monocytes (Bld) [#/Vol] 0.50 10*3/uL 0.20 - 1.00 K/uL [facility] Monocytes/100 WBC (Bld) 7.0 % 2.0 - 11.0 % [facility] Neutrophils (Bld) [#/Vol] 5.62 10*3/uL 1.50 - 8.00 K/uL [facility] Neutrophils/100 WBC (Bld) 78.0 % High 31.0 - 76.0 % [facility] Ovalocytes LM Ql (Bld) Few [facility] Platelets Large LM Ql (Bld) Present [facility] Polychromasia LM Ql (Bld) Moderate [facility] Target cells LM Ql (Bld) Few [facility] Anisocytosis Ql (Bld) Marked [facility] [place] cells LM Ql (Bld) Few [facility] Cells Counted Total (Bld) [#] [facility] Macrocytes [...] Coag (PPP) [Relative time] 2.16 {INR} High [facility] Interpretation and review of laboratory results Abnormal [facility] PT Coag (PPP) [Time] 24.2 s High Met[facility] MDeal [facility] TYPE AND SCREENon 01-11-2022 ABO and Rh group Nom (Bld) Blood group A Rh(D) positive [facility] ABO and Rh group Nom (Bld) No Previous Results [facility] Blood group antibody screen Ql Negative [facility] Basic metabolic 2000 panelon 01-10-2022 Anion gap [Moles/Vol] 17 mmol/L [facility] Calcium [Mass/Vol] 8.6 mg/dL 8.4 - 10.4 mg/dL [facility] Chloride [Moles/Vol] 99 mmol/L 97 - 111 mmol/L [facility] CO2 [Moles/Vol] 22 mmol/L 21 - 30 mmol/L [facility] Creatinine [Mass/Vol] 0.60 mg/dL Low 0.80 - 1.30 mg /dL [facility] GFR/1.73 sq M.predicted MDRD (S/P/Bld) [Vol rate/Area] 128 mL/min/{1.73_m2} >=60 mL/min/1.73sqm [facility] Glucose [Mass/Vol] 165 mg/dL High 68 - 110 mg/dL [facility] Interpretation and review of laboratory results Abnormal [facility] Potassium [Moles/Vol] 3.5 mmol/L 3.3 - 5.3 mmol /L [facility] Sodium [Moles/Vol] 134 mmol/L Low 135 - 148 mmol/L [facility] Urea nitrogen [Mass/Vol] 4 mg/dL Low 8 - 22 mg/dL [facility] Anion gap [Moles/Vol] 9 mmol/L Low [...] nitrogen [Mass/Vol] 9 mg/dL 8 - 22 mg/dL [facility] CBC WITH DIFFERENTIALOrdered By: Meka Morales on 01-10-2022 Basophils (Bld) [#/Vol] 0.06 10*3/uL 0.00 - 0.20 K/uL [facility] Basophils/100 WBC (Bld) 1.2 % <=1.9 [facility] Eosinophils (Bld) [#/Vol] 0.01 10*3/uL 0.00 - 0.70 K/uL [facility] Eosinophils/100 WBC (Bld) 0.1 % [...] (Bld) [#/Vol] 0.69 10*3/uL Low 1.00 - 4.80 K/uL [facility] Lymphocytes/100 WBC (Bld) 12.7 % Low 24.0 - 44.0 % [facility] MCH (RBC) [Entitic mass] 37.9 pg High 26.0 - 34.0 pg [facility] MCHC (RBC) [Mass/Vol] 35.5 g/dL 32.0 - 35.9 g/ dL [facility] MCV (RBC) [Entitic vol] 107 fL High 80 - 100 fL [facility] Monocyte distribution width Auto (Bld) [Entitic vol] [facility] Monocytes (Bld) [#/Vol] 0.57 10*3/uL 0.20 - 1.00 K/uL [facility] Monocytes/100 WBC (Bld) 10.6 % 2.0 - 11.0 % [facility] Neutrophils (Bld) [#/Vol] 4.07 10*3/uL 1.50 - 8.00 K/uL [facility] Neutrophils/100 WBC (Bld) 75.3 % 31.0 - 76.0 % [facility] Platelet mean volume (Bld) [Entitic vol] 9.8 fL 7.5 - 11.2 fL [facility] Platelets (Bld) [#/Vol] 93 10*3/uL Low 150 - 400 K/uL [facility] RBC (Bld) [#/Vol] 1.79 10*6/uL Low [facility] WBC (Bld) [#/Vol] 5.4 10*3/uL 4.5 - 11.5 K/uL [facility] CBC WITH DIFFERENTIALon 050 Basophils (Bld) [#/Vol] 0.07 10*3/uL 0.00 - 0.20 K/uL [facility] Basophils/100 WBC (Bld) 1.4 % <=1.9 [facility] Eosinophils (Bld) [#/Vol] 0.03 10*3/uL 0.00 - 0.70 K/uL [facility] Eosinophils/100 WBC (Bld) 0.6 % [...] (Bld) [#/Vol] 0.72 10*3/uL Low 1.00 - 4.80 K/uL [facility] Lymphocytes/100 WBC (Bld) 15.4 % Low 24.0 - 44.0 % [facility] MCH (RBC) [Entitic mass] 37.5 pg High 26.0 - 34.0 pg [facility] MCHC (RBC) [Mass/Vol] 35.3 g/dL 32.0 - 35.9 g/ dL [facility] MCV (RBC) [Entitic vol] 106 fL High 80 - 100 fL [facility] Monocyte distribution width Auto (Bld) [Entitic vol] [facility] Monocytes (Bld) [#/Vol] 0.45 10*3/uL 0.20 - 1.00 K/uL [facility] Monocytes/100 WBC (Bld) 9.7 % 2.0 - 11.0 % [facility] Neutrophils (Bld) [#/Vol] 3.40 10*3/uL 1.50 - 8.00 K/uL [facility] Neutrophils/100 WBC (Bld) 72.9 % 31.0 - 76.0 % [facility] Platelet mean volume (Bld) [Entitic vol] 8.6 fL 7.5 - 11.2 fL [facility] Platelets (Bld) [#/Vol] 58 10*3/uL Low 150 - 400 K/uL [facility] RBC (Bld) [#/Vol] 1.80 10*6/uL Low [facility] WBC (Bld) [#/Vol] 4.7 10*3/uL 4.5 - 11.5 K/uL [facility] CREATINE KINASEon 01-10-2022 CK [Catalytic activity/Vol] 1073 U/L High [facility] D-DIMEROrdered By: Gabriella french on 01-10-2022 Fibrin D-dimer DDU (PPP) [Mass/Vol] >5000 High <230 ng/mL DDU [facility] Interpretation and review of laboratory results Abnormal [facility] E[facility] 12 LEAD - PERFORMon Diagnosis [facility] P wave Atrium by EKG 96 BPM Metr [facility] P wave axis 43 degrees [facility] P-R Interval 144 ms [facility] Q-T interval 326 ms [facility] Q-T interval corrected 411 ms [facility] QRS axis 49 degrees [facility] QRS duration 92 ms [facility] T wave axis 24 degrees [facility] HAPTOGLOBINon 01-10-2022 Haptoglobin [Mass/Vol] mg/dL Low 36 - 220 mg/dL [facility] Interpretation and review of laboratory results Abnormal [facility] HEPATIC FUNCTION PANELon Albumin [Mass/Vol] 2.7 g/dL Low 3.4 - 5.1 g/dL [facility] ALP [Catalytic activity/Vol] 87 U/L [facility] ALT [Catalytic activity/Vol] 54 U/L High [facility] AST [Catalytic activity/Vol] 147 U/L High [facility] Bilirubin [Mass/Vol] 11.1 mg/dL High 0.1 - 1.5 mg/dL [facility] Bilirubin.direct [Mass/Vol] 2.60 mg/dL High 0.10 - 0.30 mg/dL [facility] Protein [Mass/Vol] 6.0 g/dL Low 6.2 - 8.3 g/dL [facility] LDHOrdered By: Jarrod cruz on 01-10-2022 Interpretation and review of laboratory results Abnormal [facility] LDH [Catalytic activity/Vol] 378 U/L High [facility] - Microbiology an d Antimicrobial susceptibilityon 01-10-2022 RSV RNA ANGIE+probe Ql (Unsp spec) Negative Negative [facility] Laboratory - Specimen inform ationon 01-10-2022 Specimen source Nom (Unsp spec) Negative Negative [facility] MAGNESIUMon 01-10-2022 Interpretation and review of laboratory results Normal [facility] Magnesium [Mass/Vol] 1.7 mg/dL 1.6 - 2.8 mg/dL [facility] MANUAL DIFF AND MORPHon Acanthocytes LM Ql (Bld) Few [facility] [place] cells LM Ql (Bld) Moderate [facility] Cells Counted Total (Bld) [#] [facility] Macrocytes Ql (Bld) Slight [facility] Ovalocytes LM Ql (Bld) Few [facility] Schistocytes LM Ql (Bld) Few [facility] Acanthocytes LM Ql (Bld) Few [facility] [place] cells LM Ql (Bld) Few [facility] Cells Counted Total (Bld) [#] [facility] Macrocytes Ql (Bld) Slight [facility] Polychromasia LM Ql (Bld) Slight [facility] Schistocytes LM Ql (Bld) Few [facility] Target cells LM Ql (Bld) Few [facility] No Panel Informationon 01-10 [facility] Interpretation and review of laboratory results Abnormal [facility] No Panel InformationOrdered By: Meka Morales on 01-10-2022 [facility] PARTIAL THROMBOPLASTIN TIMEo n 01-10-2022 aPTT Coag (Bld) [Time] 29 s [facility] Interpretation and review of laboratory results Normal [facility] PROTHROMBIN TIME AND INRon 0 01-10-2022 INR Coag (PPP) [Relative time] 1.79 {INR} High [facility] Interpretation and review of laboratory results Abnormal [facility] PT Coag (PPP) [Time] 20.1 s High [facility] RED BLOOD CELL COMPONENTon 0 01-10-2022 BB Order Item Product status info to follow [facility] RESPIRATORY VIRUS PANEL, PCR on 01-10-2022 Adenovirus DNA ANGIE+probe Ql (Unsp spec) Negative Negative [facility] C. pneumoniae DNA ANGIE+probe Ql (Unsp spec) Negative Negative [facility] FLUAV H1 RNA ANGIE+probe Ql (Unsp spec) Negative Negative [facility] FLUAV H3 RNA ANGIE+probe Ql (Unsp spec) Negative Negative [facility] FLUAV RNA ANGIE+probe Ql (Unsp spec) Negative Negative [facility] FLUBV RNA ANGIE+probe Ql (Unsp spec) Negative Negative [facility] HCoV HKU1 RNA ANGIE+probe Ql (Unsp spec) Negative Negative [facility] HCoV NL63 RNA ANGIE+probe Ql (Unsp spec) Negative Negative [facility] hMPV RNA ANGIE+probe Ql (Unsp spec) Negative Negative [facility] Interpretation and review of laboratory results Normal [facility] M. pneumoniae DNA ANGIE+probe Ql (Unsp spec) Negative Negative [facility] Parainfluenza virus 1 RNA ANGIE+probe Ql (Unsp spec) Negative Negative [facility] Parainfluenza virus 2 RNA ANGIE+probe Ql (Unsp spec) Negative Negative [facility] Parainfluenza virus 3 RNA ANGIE+probe Ql (Unsp spec) Negative Negative [facility] Parainfluenza virus 4 RNA ANGIE+probe Ql (Unsp spec) Negative Negative [facility] Rhinovirus RNA ANGIE+probe Nom (Unsp spec) Negative Negative [facility] HEP PORT SPLEN VEIN + DOP PLERon 01-10-2022 RADIOLOGY [facility] Radiology Study observation (narrative) [facility] US SPLEENon 01-10-2022 RADIOLOGY [facility] Radiology Study observation (narrative) [facility] US SPLEENOrdered By: Enrique Basurto on 01-10-2022 [facility] Work Phone: AMMONIAon 01-09-2022 Ammonia (P) [Moles/Vol] 74 umol/L High 11 - 35 umol/L [facility] Interpretation and review of laboratory results Abnormal [facility] AUTOIMMUNE MULTIPLEX PANELon 01-09-2022 Interpretation and review of laboratory results Normal [facility] Nuclear Ab IA Ql (S) Negative Negative [facility] Basic metabolic 2000 panelon 01-09-2022 Anion gap [Moles/Vol] 10 mmol/L [facility] Calcium [Mass/Vol] 8.1 mg/dL Low 8.4 - 10.4 mg/dL [facility] Chloride [Moles/Vol] 100 mmol/L 97 - 111 mmol/L [facility] CO2 [Moles/Vol] 27 mmol/L 21 - 30 mmol/L [facility] Creatinine [Mass/Vol] 0.41 mg/dL Low 0.80 - 1.30 mg /dL [facility] GFR/1.73 sq M.predicted MDRD (S/P/Bld) [Vol rate/Area] 143 mL/min/{1.73_m2} >=60 mL/min/1.73sqm [facility] Glucose [Mass/Vol] 142 mg/dL High 68 - 110 mg/dL [facility] Potassium [Moles/Vol] 4.0 mmol/L 3.3 - 5.3 mmol /L [facility] Sodium [Moles/Vol] 133 mmol/L Low 135 - 148 mmol/L [facility] Urea nitrogen [Mass/Vol] 7 mg/dL Low 8 - 22 mg/dL [facility] CBC WITH DIFFERENTIALOrdered By: Norris Billings on 01-09-2022 Basophils (Bld) [#/Vol] 0.03 10*3/uL 0.00 - 0.20 K/uL [facility] Basophils/100 WBC (Bld) 0.7 % <=1.9 [facility] Eosinophils (Bld) [#/Vol] 0.05 10*3/uL 0.00 - 0.70 K/uL [facility] Eosinophils/100 WBC (Bld) 1.5 % [...] (Bld) [#/Vol] 0.71 10*3/uL Low 1.00 - 4.80 K/uL [facility] Lymphocytes/100 WBC (Bld) 19.4 % Low 24.0 - 44.0 % [facility] MCH (RBC) [Entitic mass] 36.5 pg High 26.0 - 34.0 pg [facility] MCHC (RBC) [Mass/Vol] 34.9 g/dL 32.0 - 35.9 g/ dL [facility] MCV (RBC) [Entitic vol] 105 fL High 80 - 100 fL [facility] Monocyte distribution width Auto (Bld) [Entitic vol] [facility] Monocytes (Bld) [#/Vol] 0.50 10*3/uL 0.20 - 1.00 K/uL [facility] Monocytes/100 WBC (Bld) 13.7 % High 2.0 - 11.0 % [facility] Neutrophils (Bld) [#/Vol] 2.37 10*3/uL 1.50 - 8.00 K/uL [facility] Neutrophils/100 WBC (Bld) 64.8 % 31.0 - 76.0 % [facility] Platelet mean volume (Bld) [Entitic vol] 8.2 fL 7.5 - 11.2 fL [facility] Platelets (Bld) [#/Vol] 56 10*3/uL Low 150 - 400 K/uL [facility] RBC (Bld) [#/Vol] 1.76 10*6/uL Low [facility] WBC (Bld) [#/Vol] 3.7 10*3/uL Low 4.5 - 11.5 K/uL [facility] CBC WITH DIFFERENTIALOrdered By: Mi Alcazar on 01-09-2022 Basophils (Bld) [#/Vol] 0.03 10*3/uL 0.00 - 0.20 K/uL [facility] Basophils/100 WBC (Bld) 0.9 % <=1.9 [facility] Eosinophils (Bld) [#/Vol] 0.05 10*3/uL 0.00 - 0.70 K/uL [facility] Eosinophils/100 WBC (Bld) 1.4 % [...] (Bld) [#/Vol] 0.76 10*3/uL Low 1.00 - 4.80 K/uL [facility] Lymphocytes/100 WBC (Bld) 20.2 % Low 24.0 - 44.0 % [facility] MCH (RBC) [Entitic mass] 36.4 pg High 26.0 - 34.0 pg [facility] MCHC (RBC) [Mass/Vol] 35.2 g/dL 32.0 - 35.9 g/ dL [facility] MCV (RBC) [Entitic vol] 103 fL High 80 - 100 fL [facility] Monocyte distribution width Auto (Bld) [Entitic vol] [facility] Monocytes (Bld) [#/Vol] 0.47 10*3/uL 0.20 - 1.00 K/uL [facility] Monocytes/100 WBC (Bld) 12.5 % High 2.0 - 11.0 % [facility] Neutrophils (Bld) [#/Vol] 2.45 10*3/uL 1.50 - 8.00 K/uL [facility] Neutrophils/100 WBC (Bld) 65.0 % 31.0 - 76.0 % [facility] Platelet mean volume (Bld) [Entitic vol] 8.1 fL 7.5 - 11.2 fL [facility] Platelets (Bld) [#/Vol] 52 10*3/uL Low 150 - 400 K/uL [facility] RBC (Bld) [#/Vol] 1.84 10*6/uL Low [facility] WBC (Bld) [#/Vol] 3.8 10*3/uL Low 4.5 - 11.5 K/uL [facility] CREATINE KINASEon 01-09-2022 CK [Catalytic activity/Vol] 892 U/L High [facility] Interpretation and review of laboratory results Abnormal [facility] HEPATIC FUNCTION PANELon Albumin [Mass/Vol] 2.7 g/dL Low 3.4 - 5.1 g/dL [facility] ALP [Catalytic activity/Vol] 92 U/L [facility] ALT [Catalytic activity/Vol] 47 U/L High [facility] AST [Catalytic activity/Vol] 124 U/L High [facility] Bilirubin [Mass/Vol] 11.2 mg/dL High 0.1 - 1.5 mg/dL [facility] Bilirubin.direct [Mass/Vol] 2.50 mg/dL High 0.10 - 0.30 mg/dL [facility] Protein [Mass/Vol] 6.0 g/dL Low 6.2 - 8.3 g/dL [facility] HIV 1 and 2 Ab and HIV 1 p24 Ag panel IAon 01-09-2022 HIV 1+2 Ab+HIV1 p24 Ag IA Ql Non-Reactive Non-Reactive [facility] Interpretation and review of laboratory results Normal [facility] Lipid 1996 panelon Cholesterol [Mass/Vol] 341 mg/dL High <200 [facility] Cholesterol in HDL [Mass/Vol] 30 mg/dL Low >44 [facility] Cholesterol in LDL [Mass/Vol] 277 mg/dL High <111 [facility] Cholesterol in LDL/Cholesterol in HDL [Mass ratio] 9.23 {ratio} High <3.57 [facility] Cholesterol non HDL [Mass/Vol] 311 mg/dL High <130 [facility] Cholesterol.total/Cho lesterol in HDL [Mass ratio] 11.37 {ratio} High <5.00 [facility] Interpretation and review of laboratory results Abnormal [facility] Triglyceride [Mass/Vol] 266 mg/dL High <151 [facility] MANUAL DIFF AND MORPHon Anisocytosis Ql (Bld) Moderate [facility] [place] cells LM Ql (Bld) Few [facility] Cells Counted Total (Bld) [#] [facility] Dacrocytes LM Ql (Bld) Few [facility] Macrocytes Ql (Bld) Slight [facility] Ovalocytes LM Ql (Bld) Moderate [facility] Polychromasia LM Ql (Bld) Slight [facility] Schistocytes LM Ql (Bld) Few [facility] Target cells LM Ql (Bld) Few [facility] Anisocytosis Ql (Bld) Marked [facility] [place] cells LM Ql (Bld) Few [facility] Cells Counted Total (Bld) [#] [facility] Macrocytes Ql (Bld) Slight [facility] Ovalocytes LM Ql (Bld) Many [facility] Polychromasia LM Ql (Bld) Slight [facility] RBC.hypochromic/100 RBC Auto (Bld) Slight [facility] Schistocytes LM Ql (Bld) Few [facility] Target cells LM Ql (Bld) Few [facility] No Panel InformationOrdered By: Norris Billings on 01-09-2022 [facility] No Panel InformationOrdered By: Mi Alcazar on 01-09-2022 [facility] No Panel Informationon 01-09 Interpretation and review of laboratory results Abnormal [facility] PROTHROMBIN TIME AND INRon 0 01-09-2022 INR Coag (PPP) [Relative time] 1.94 {INR} High [facility] Interpretation and review of laboratory results Abnormal [facility] PT Coag (PPP) [Time] 21.8 s High [facility] RED BLOOD CELL COMPONENTon 0 01-09-2022 BB Order Item Product status info to follow [facility] THYROXINE (T4), FREEon 01-09 Free T4 [Mass/Vol] 0.88 ng/dL 0.45 - 1.80 ng/dL [facility] Interpretation and review of laboratory results Normal [facility] XR ABDOMEN 1 VIEW APon 01-09 RADIOLOGY [facility] Radiology Study observation (narrative) [facility] XR ABDOMEN 1 VIEW APOrdered By: Ulysses Omalley on 01-09-2022 [facility] Work Phone: ACETAMINOPHENon 01-08-2022 Acetaminophen [Mass/Vol] ug/mL 10 - 20 ug/mL [facility] Interpretation and review of laboratory results Normal [facility] ANTIBODY ID ELUTED-LAB ONLYo n 01-08-2022 Blood group antibody screen Elution Ql Negative [facility] Basic metabolic 2000 panelon 01-08-2022 Anion gap [Moles/Vol] 16 mmol/L [facility] Calcium [Mass/Vol] 8.1 mg/dL Low 8.4 - 10.4 mg/dL [facility] Chloride [Moles/Vol] 95 mmol/L Low 97 - 111 mmol/L [facility] CO2 [Moles/Vol] 22 mmol/L 21 - 30 mmol/L [facility] Creatinine [Mass/Vol] 0.44 mg/dL Low 0.80 - 1.30 mg /dL [facility] GFR/1.73 sq M.predicted MDRD (S/P/Bld) [Vol rate/Area] 140 mL/min/{1.73_m2} >=60 mL/min/1.73sqm [facility] Glucose [Mass/Vol] 91 mg/dL 68 - 110 mg/dL [facility] Potassium [Moles/Vol] 3.7 mmol/L 3.3 - 5.3 mmol /L [facility] Sodium [Moles/Vol] 129 mmol/L Low 135 - 148 mmol/L [facility] Urea nitrogen [Mass/Vol] 5 mg/dL Low 8 - 22 mg/dL [facility] CBC WITH DIFFERENTIALOrdered By: Fiorella Cochran on 01-08-2022 Basophils (Bld) [#/Vol] 0.04 10*3/uL 0.00 - 0.20 K/uL [facility] Basophils/100 WBC (Bld) 0.7 % <=1.9 [facility] Eosinophils (Bld) [#/Vol] 0.10 10*3/uL 0.00 - 0.70 K/uL [facility] Eosinophils/100 WBC (Bld) 1.9 % 0.1 - 4.0 % [facility] Erythrocyte distribution width (RBC) [Ratio] 24.0 % High 11.5 - 14.5 % [facility] Hematocrit (Bld) [Volume fraction] 20.3 % Low 41.0 - 53.0 % [facility] Hemoglobin (Bld) [Mass/Vol] 7.3 g/dL Low 13.9 - 16.3 g/dL [facility] Interpretation and review of laboratory results Abnormal [facility] Lymphocytes (Bld) [#/Vol] 0.94 10*3/uL Low 1.00 - 4.80 K/uL [facility] Lymphocytes/100 WBC (Bld) 17.5 % Low 24.0 - 44.0 % [facility] MCH (RBC) [Entitic mass] 37.3 pg High 26.0 - 34.0 pg [facility] MCHC (RBC) [Mass/Vol] 35.7 g/dL 32.0 - 35.9 g/ dL [facility] MCV (RBC) [Entitic vol] 105 fL High 80 - 100 fL [facility] Monocyte distribution width Auto (Bld) [Entitic vol] [facility] Monocytes (Bld) [#/Vol] 0.92 10*3/uL 0.20 - 1.00 K/uL [facility] Monocytes/100 WBC (Bld) 16.9 % High 2.0 - 11.0 % [facility] Neutrophils (Bld) [#/Vol] 3.40 10*3/uL 1.50 - 8.00 K/uL [facility] Neutrophils/100 WBC (Bld) 63.0 % 31.0 - 76.0 % [facility] Platelet mean volume (Bld) [Entitic vol] 8.4 fL 7.5 - 11.2 fL [facility] Platelets (Bld) [#/Vol] 52 10*3/uL Low 150 - 400 K/uL [facility] RBC (Bld) [#/Vol] 1.94 10*6/uL Low [facility] WBC (Bld) [#/Vol] 5.4 10*3/uL 4.5 - 11.5 K/uL [facility] CBC WITH DIFFERENTIALOrdered By: Rafy Carr on 01-08-2022 Basophils (Bld) [#/Vol] 0.04 10*3/uL 0.00 - 0.20 K/uL [facility] Basophils/100 WBC (Bld) 0.8 % <=1.9 [facility] Eosinophils (Bld) [#/Vol] 0.08 10*3/uL 0.00 - 0.70 K/uL [facility] Eosinophils/100 WBC (Bld) 1.4 % 0.1 - 4.0 % [facility] Erythrocyte distribution width (RBC) [Ratio] 24.2 % High 11.5 - 14.5 % [facility] Hematocrit (Bld) [Volume fraction] 20.1 % Low 41.0 - 53.0 % [facility] Hemoglobin (Bld) [Mass/Vol] 7.2 g/dL Low 13.9 - 16.3 g/dL [facility] Interpretation and review of laboratory results Abnormal [facility] Lymphocytes (Bld) [#/Vol] 1.01 10*3/uL 1.00 - 4.80 K/uL [facility] Lymphocytes/100 WBC (Bld) 17.9 % Low 24.0 - 44.0 % [facility] MCH (RBC) [Entitic mass] 36.9 pg High 26.0 - 34.0 pg [facility] MCHC (RBC) [Mass/Vol] 36.1 g/dL High 32.0 - 35.9 g/ dL [facility] MCV (RBC) [Entitic vol] 102 fL High 80 - 100 fL [facility] Monocyte distribution width Auto (Bld) [Entitic vol] [facility] Monocytes (Bld) [#/Vol] 0.87 10*3/uL 0.20 - 1.00 K/uL [facility] Monocytes/100 WBC (Bld) 15.4 % High 2.0 - 11.0 % [facility] Neutrophils (Bld) [#/Vol] 3.65 10*3/uL 1.50 - 8.00 K/uL [facility] Neutrophils/100 WBC (Bld) 64.5 % 31.0 - 76.0 % [facility] Platelet mean volume (Bld) [Entitic vol] 8.4 fL 7.5 - 11.2 fL [facility] Platelets (Bld) [#/Vol] 51 10*3/uL Low 150 - 400 K/uL [facility] RBC (Bld) [#/Vol] 1.96 10*6/uL Low [facility] WBC (Bld) [#/Vol] 5.7 10*3/uL 4.5 - 11.5 K/uL [facility] CREATINE KINASEon 01-08-2022 CK [Catalytic activity/Vol] 777 U/L High [facility] DIRECT ANTIGLOBULIN TESTon 0 01-08-2022 Direct antiglobulin test.complement specific reagent Ql (RBC) Negative [facility] Direct antiglobulin test.IgG specific reagent (RBC) [Interp] Positive [facility] Direct antiglobulin test.poly specific reagent Ql (RBC) Positive [facility] EKG 12 LEAD - PERFORMon Diagnosis [facility] P wave [facility] 76 B[facility] axis 46 degrees [facility] P-R Interval 132 ms [facility] Q-T interval 422 ms [facility] Q-T interval corrected 474 ms [facility] QRS axis 44 degrees [facility] QRS duration 86 ms [facility] T wave axis 22 degrees [facility] FERRITINon 01-08-2022 Ferritin [Mass/Vol] 829.1 ng/mL High 11.5 - 3 00.0 ng/mL [facility] Interpretation and review of laboratory results Abnormal [facility] FOLIC ACIDon 01-08-2022 Folate [Mass/Vol] 13.9 ng/mL 5.9 - 24.7 ng/mL [facility] Interpretation and review of laboratory results Normal [facility] GLUCOSE, FINGERSTICK-IN OFFI CEon 01-08-2022 Glucose [Mass/Vol] 94 mg/dL 68 - 110 mg/dL [facility] Interpretation and review of laboratory results Normal [facility] HAPTOGLOBINon 01-08-2022 Haptoglobin [Mass/Vol] mg/dL Low 36 - 220 mg/dL [facility] Interpretation and review of laboratory results Abnormal [facility] HCV Ab IA Qn (S)on HCV Ab Ql (S) Non-Reactive Nonreactive [facility] Interpretation and review of laboratory results Normal [facility] HEPATIC FUNCTION PANELon Albumin [Mass/Vol] 2.9 g/dL Low 3.4 - 5.1 g/dL [facility] ALP [Catalytic activity/Vol] 121 U/L [facility] ALT [Catalytic activity/Vol] 50 U/L High [facility] AST [Catalytic activity/Vol] 129 U/L High [facility] Bilirubin [Mass/Vol] 11.1 mg/dL High 0.1 - 1.5 mg/dL [facility] Bilirubin.direct [Mass/Vol] 2.40 mg/dL High 0.10 - 0.30 mg/dL [facility] Protein [Mass/Vol] 6.4 g/dL 6.2 - 8.3 g/dL [facility] HEPATITIS A IGM ANTIBODYon 0 01-08-2022 HAV IgM IA Ql Non-Reactive Nonreactive [facility] Interpretation and review of laboratory results Normal [facility] HEPATITIS A TOTAL ANTIBODYon 01-08-2022 HAV Ab IA Ql (S) Reactive Abnormal Nonreactive [facility] Interpretation and review of laboratory results Abnormal [facility] HEPATITIS B CORE ANTIBODYon 01-08-2022 HBV core Ab Ql (S) Non-Reactive Nonreactive [facility] Interpretation and review of laboratory results Normal [facility] HEPATITIS B SURFACE ANTIBODY on 01-08-2022 HBV surface Ab IA Qn m[IU]/mL mIU/mL [facility] HEPATITIS B SURFACE ANTIGENo n 01-08-2022 HBV surface Ag Ql (S) Non-Reactive Non-Reactive [facility] Interpretation and review of laboratory results Normal [facility] IRON AND TIBCon 01-08-2022 Interpretation and review of laboratory results Abnormal [facility] Iron [Mass/Vol] 145 ug/dL 45 - 160 ug/dL [facility] Iron binding capacity [Mass/Vol] 214 ug/mL Low 250 - 410 ug/mL [facility] Iron saturation [Mass fraction] 68 % High 20 - 55 % [facility] Transferrin [Mass/Vol] 153 mg/dL Low 210 - 375 mg/dL [facility] LACTIC ACIDOrdered By: Arnol kowalski on 01-08-2022 Interpretation and review of laboratory results Normal [facility] Lactate [Moles/Vol] 1.1 mmol/L 0.5 - 2.0 mmol/L [facility] LDHOrdered By: Yaritza staton on 01-08-2022 Interpretation and review of laboratory results Abnormal [facility] LDH [Catalytic activity/Vol] 369 U/L High [facility] MAGNESIUMon 01-08-2022 Interpretation and review of laboratory results Normal [facility] Magnesium [Mass/Vol] 1.7 mg/dL 1.6 - 2.8 mg/dL [facility] MANUAL DIFF AND MORPHon 05-0 Anisocytosis Ql (Bld) Marked [facility] Cells Counted Total (Bld) [#] [facility] Macrocytes Ql (Bld) Slight [facility] Polychromasia LM Ql (Bld) Slight [facility] Acanthocytes LM Ql (Bld) Few [facility] [place] cells LM Ql (Bld) Few [facility] Cells Counted Total (Bld) [#] [facility] Macrocytes Ql (Bld) Slight [facility] Polychromasia LM Ql (Bld) Slight [facility] No Panel InformationOrdered By: Fiorella Cochran on 01-08-2022 [facility] No Panel Informationon 01-08 Interpretation and review of laboratory results Abnormal [facility] RADIOLOGY [facility] No Panel InformationOrdered By: Rafy Carr on 01-08-2022 [facility] No Panel InformationOrdered By: Crow Werner on 01-08-2022 [facility] Work Phone: PROTHROMBIN TIME AND INRon 0 01-08-2022 INR Coag (PPP) [Relative time] 1.78 {INR} High [facility] Interpretation and review of laboratory results Abnormal [facility] PT Coag (PPP) [Time] 20.0 s High [facility] RETICULOCYTE COUNTOrdered By : Deborah Che on 01-08-2022 Immature reticulocytes/Total reticulocytes (Bld) 0.56 % High [facility] Interpretation and review of laboratory results Abnormal [facility] Reticulocytes (Bld) [#/Vol] 0.10 10*3/uL High [facility] Reticulocytes/100 RBC (Bld) 5.2 % High 0.5 - 1.5 % [facility] TSHon 01-08-2022 Interpretation and review of laboratory results Abnormal [facility] TSH Qn 6.627 m[IU]/L High [facility] US ASCITES SURVEY 4 QUADRANT Son 01-08-2022 RADIOLOGY [facility] Radiology Study observation (narrative) [facility] US ASCITES SURVEY 4 QUADRANT SOrdered By: Lisa Rizzo on 01-08-2022 [facility] Work Phone: US LIVER/GALL BLADDER/PANCRE ASon 01-08-2022 RADIOLOGY [facility] Radiology Study observation (narrative) [facility] VITAMIN B12 (CYANOCOBALAMIN) on 01-08-2022 Cobalamin (Vitamin B12) [Moles/Vol] 1299 pg/mL >300 [facility] Interpretation and review of laboratory results [facility] XR ELBOW LEFT MINIMUM 3 VIEW Son 01-08-2022 Radiology Study observation (narrative) [facility] XR HUMERUS LEFTon 01-08-2022 Radiology Study observation (narrative) [facility] XR ORBITSon 01-08-2022 RADIOLOGY [facility] Radiology Study observation (narrative) [facility] XR ORBITSOrdered By: Philipp Salgado on 01-08-2022 [facility] Work Phone: BLOOD BANKOrdered By: Destiny Mark on 01-07-2022 ABO/Rh Interp Positive Invalid Interpretation Code [facility] BB Subsection ABSC Gel Interp Negative (01/07/22 10:21 AM) Normal [facility] BB Subsection ABO/Rh Retype Interp Positive Invalid Interpretation Code [facility] BB Subsection CHEMISTRYOrdered By: SYSTEM SYSTEM on 01-07-2022 Lactate [Mass/Vol] 1.7 mmol/L [...] 16 mmol/L Normal 6 - 16 mEq/L [facility] Remisol AST [Catalytic activity/Vol] 160 [iU]/d High [...] Creatinine [Mass/Vol] mg/dL Low 0.5 - 1.3 mg/d L [facility] Remisol Ethanol [Mass/Vol] 107 mg/dL Invalid Interpretation Code <=7mg/dL [facility] Remisol Comment on above: [...] 116 mg/dL Normal 55 - 199 mg/dL [facility] Lipase [Catalytic activity/Vol] 59 U/L High 13 - 58 unit/L [facility] Potassium [Moles/Vol] 3.8 mmol/L Normal 3.5 - 5.3 mmol /L [facility] Remisol Protein [Mass/Vol] 6.8 g/dL Normal 6.0 - 7.8 gm/dL [facility] Remisol Sodium [Moles/Vol] 132 mmol/L Low 135 - 145 mmol/L [facility] Remisol Troponin I.cardiac [Mass/Vol] 18.40 pg/mL Normal 15.90 - 38.40 pg/mL [facility] Urea nitrogen [Mass/Vol] 7 mg/dL Normal 5 - 21 mg/dL [facility] Remisol Urea nitrogen/Creatinine [Mass ratio] Unable to Calculate Invalid Interpretation [...] Ql (Bld) Present (01/07/22 9:25 AM) Normal [facility] Erythrocyte distribution width (RBC) [Ratio] 17.2 [...] Ql (Bld) Present (01/07/22 9:25 AM) Normal [facility] MCH (RBC) [Entitic mass] 38.9 pg High 27.0 - 34.0 pg [facility] MCHC (RBC) [Mass/Vol] 36.0 g/dL Normal 31.4 - 36.0 gm /dL [facility] MCV (RBC) [Entitic vol] 108.0 fL High 80.0 - 100.0 fL [facility] Morphology Parth (Bld) [Interp] See Morphology (01/07/22 9:25 AM) Normal [facility] Platelet mean volume (Bld) [Entitic vol] 8.8 fL Normal 6.4 - 10.8 fL [facility] Platelets (Bld) [#/Vol] 63.0 E9/L Low 150.0 - 500.0 E9/L [facility] RBC (Bld) [#/Vol] 1.8 E12/L Low 4.3 - 5.9 E12/L [facility] Target cells LM Ql (Bld) Present (01/07/22 9:25 AM) Normal [facility]eManSS WBC corrected for nucl RBC Auto (Bld) [#/Vol] 7.4 E9/L Normal 4.0 - 11.0 E9/L [facility] HEMATOLOGYOrdered By: SYSTEM SYSTEM on 01-07-2022 Basophils/100 WBC (Bld) 1.1 % Normal 0.0 - 2.0 % [facility] Basophils/Leukocytes Auto (Bld) [Pure # fraction] 0.1 E9/L Normal 0.0 - 0.2 E9/L [facility] Eosinophils/100 WBC (Bld) 1.8 % Normal 0.0 - 8.0 % [facility] Eosinophils/Leukocyte s Auto (Bld) [Pure # fraction] 0.1 E9/L Normal 0.0 - 0.5 E9/L [facility] Lymphocytes/100 WBC (Bld) 40.2 % Normal 14.0 - 50.0 % [facility] Lymphocytes/Leukocyte s Auto (Bld) [Pure # fraction] 3.0 E9/L Normal 1.0 - 4.0 E9/L [facility] Monocytes/100 WBC (Bld) 12.1 % Normal 4.0 - 14.0 % [facility] Monocytes/Leukocytes Auto (Bld) [Pure # fraction] 0.9 E9/L Normal 0.2 - 1.0 E9/L [facility] Neutrophils/100 WBC (Bld) 44.8 % Normal 36.0 - 75.0 % [facility] Neutrophils/Leukocyte s Auto (Bld) [Pure # fraction] 3.3 E9/L Normal 2.0 - 7.5 E9/L [facility] HEMATOLOGYOrdered By: Bhavesh Bone on 01-07-2022 Path Review Anemia with polychromasia, target cells. Thrombocytopenia with no increase of schistocytes. No hypersegmented granulocytes seen.D64.9CPT [id number] Invalid Interpretation Code [facility] URINALYSISOrdered By: Mary Kay cordero on 01-07-2022 [...] [#/Area] 0-2 /HPF Normal 0-2/HPF [facility] UA Aut o SS Glucose Test strip (U) [Mass/Vol] Negative (01/07/22 12:30 PM) Normal Negative [facility] UA Auto SS Hemoglobin Ql (U) Negative (01/07/22 12:30 PM) Normal Negative [facility] UA Auto SS Ketones (U) [Mass/Vol] 2+ *ABN* (01/07/22 12:30 PM) Invalid Interpretation Code Negative [facility] UA Auto SS [place].plasma/Lithiu m.RBC (Bld) [Mass ratio] 0-3 /HPF Normal 0-3/HPF [facility] UA Auto SS Mucus Ql (Urine sed) Trace (01/07/22 12:30 PM) Normal [facility] UA Auto SS Nitrite Ql (U) Negative (01/07/22 12:30 PM) Normal Negative [facility] UA Auto SS pH (U) 7.5 *NA* (01/07/22 12:30 PM) Invalid Interpretation Code 5.0 - 9.0 [facility] UA Auto SS Protein (U) [Mass/Vol] Negative (01/07/22 12:30 PM) Normal Negative [facility] UA Auto SS Specific gravity (U) [Rel density] 1.010 *NA* (01/07/22 12:30 PM) Invalid Interpretation Code 1.005 - 1.030 [facility] UA Auto SS UA Spec Desc Clean Catch (01/07/22 12:30 PM) Normal [facility] UA Auto SS Urobilinogen Qn (U) [id number] {Alexey'U}/dL Invalid Interpretation Code 0.0 - 1.0 EU/dL [facility] UA Auto SS WBC Auto Ql (U) Negative (01/07/22 12:30 PM) Normal Negative [facility] UA Auto SS WBC LM.HPF (Urine sed) [#/Area] 0-5 /HPF Normal 0-5/HPF [facility] UA Auto SS Vital Signs Date Time Vital Sign Value Performing Clinician Facility 09-01-2023 12:16-0500 Diastolic blood pressure 80 mm[Hg] Martin Sarmini [facility] 09-01-2023 12:16-0500 Mean blood pressure 100 mm[Hg] Martin Sarmini [facility] 09-01-2023 12:16-0500 Systolic blood pressure 140 mm[Hg] Martin Sarmini [facility] 09-01-2023 12:12-0500 Blood Pressure Location Martin Sarmini [facility] 09-01-2023 12:12-0500 Diastolic blood pressure 82 mm[Hg] Martin Sarmini [facility] 09-01-2023 12:12-0500 Heart rate 80 /min Martin Sarmini [facility] 09-01-2023 12:12-0500 Respiratory rate 18 /min Martin Sarmini [facility] 09-01-2023 12:12-0500 Systolic blood pressure 142 mm[Hg] Martin Sarmini [facility] 08-26-2023 09:34-0500 Blood Pressure Location Lisa Lopez [facility] 08-26-2023 09:34-0500 Diastolic blood pressure 88 mm[Hg] Lisa Lopez [facility] 08-26-2023 09:34-0500 Heart rate 71 /min Lisa Lopez [facility] 08-26-2023 09:34-0500 Respiratory rate 18 /min Lisa Lopze [facility] 08-26-2023 09:34-0500 SaO2% (BldA) [Mass fraction] 100 % Lisa Lopez [facility] 08-26-2023 09:34-0500 Systolic blood pressure 150 mm[Hg] Lisa Lopez [facility] 07-24-2023 07:37-0500 Blood Pressure Location Lisa Lopez [facility] 07-24-2023 07:37-0500 Diastolic blood pressure 76 mm[Hg] Lisa Lopez [facility] 07-24-2023 07:37-0500 Heart rate 79 /min Lisa Lopez [facility] 07-24-2023 07:37-0500 Respiratory rate 16 /min Lisa Lopez [facility] 07-24-2023 07:37-0500 SaO2% (BldA) [Mass fraction] 100 % Lisa John [facility] 07-24-2023 07:37-0500 Systolic blood pressure 132 mm[Hg] Lisa John [facility] 06-19-2023 12:23-0400 Body temperature 97.88 [degF] Teddy Luna [facility] 06-19-2023 12:23-0400 Diastolic blood pressure 105 mm[Hg] Teddy Luna [facility] 06-19-2023 12:23-0400 Heart rate 70 /min Teddy Luna [facility] 06-19-2023 12:23-0400 Respiratory rate 18 /min Teddy Luna [facility] 06-19-2023 12:23-0400 SaO2% (BldA) [Mass fraction] 98 % Teddy Luna [facility] 06-19-2023 12:23-0400 Systolic blood pressure 165 mm[Hg] Teddy Luna [facility] 04-24-2023 11:00-0400 Body height 170.18 cm Jarrod Eddy Other [facility] [employer] Other 04-24-2023 11:00-0400 Body mass index (BMI) [Ratio] 26.94 kg/m2 Jarrod Eddy Other [employer] Other 04-24-2023 11:00-0400 Body temperature 97.4 [degF] Jarrod Eddy Other [employer] Other 04-24-2023 11:00-0400 Body weight 78.02 kg Jarrod Eddy Other [employer] Other 04-24-2023 11:00-0400 Diastolic blood pressure 70 mm[Hg] Jarrod Eddy Other [employer] Other 04-24-2023 11:00-0400 SaO2% (BldA) [Mass fraction] 99 % Jarrod Eddy Other [employer] Other 04-24-2023 11:00-0400 Systolic blood pressure 138 mm[Hg] Jarrod Eddy Other [employer] Other 04-21-2023 09:38-0400 Body height 170.2 cm Tanvir Black MD Work Phone: [employer] 04-21-2023 09:38-0400 Body mass index (BMI) [Ratio] 27.08 kg/m2 Tanvir Black MD Work Phone: [employer] 04-21-2023 09:38-0400 Body temperature 97.7 [degF] Tanvir Black MD Work Phone: [employer] 04-21-2023 09:38-0400 Body weight 78.43 kg Tanvir Black MD Work Phone: [employer] 04-21-2023 09:38-0400 Diastolic blood pressure 67 mm[Hg] Tanvir Black MD Work Phone: [employer] 04-21-2023 09:38-0400 Heart rate 79 /min Tanvir Black MD Work Phone: [employer] 04-21-2023 09:38-0400 Respiratory rate 20 /min Tanvir Black MD Work Phone: [employer] 04-21-2023 09:38-0400 SaO2% (BldA) [Mass fraction] 100 % Tanvir Black MD Work Phone: [facility] 04-21-2023 09:38-0400 Systolic blood pressure 136 mm[Hg] Tanvir Black MD Work Phone: [facility] 03-22-2023 21:05-0400 Diastolic blood pressure 80 mm[Hg] Martin Mary Ann [facility] 03-22-2023 21:05-0400 Heart rate 88 /min Martin Mary Ann [facility] 03-22-2023 21:05-0400 Hourly Rounding Martin Mary Ann [facility] 03-22-2023 21:05-0400 Promise to Return Martin Mary Ann [facility] 03-22-2023 21:05-0400 Respiratory rate 18 /min Martin Mary Ann [facility] 03-22-2023 21:05-0400 SaO2% (BldA) [Mass fraction] 100 % Martin Mary Ann [facility] 03-22-2023 21:05-0400 Systolic blood pressure 148 mm[Hg] Martin Mary Ann [facility] 03-22-2023 20:07-0400 Body temperature 97.7 [degF] Martin Mary Ann [facility] 03-22-2023 20:07-0400 Diastolic blood pressure 84 mm[Hg] Martin Mary Ann [facility] 03-22-2023 20:07-0400 Heart rate 92 /min Martin Mary Ann [facility] 03-22-2023 20:07-0400 Respiratory rate 18 /min Martin Mary Ann [facility] 03-22-2023 20:07-0400 SaO2% (BldA) [Mass fraction] 100 % Martin Mary Ann [facility] 03-22-2023 20:07-0400 Systolic blood pressure 151 mm[Hg] Martin Reese [facility] 02-18-2023 09:11-0400 Diastolic blood pressure 70 mm[Hg] Brent Sanches [facility] 02-18-2023 09:11-0400 Heart rate 82 /min Brent Myron [facility] 02-18-2023 09:11-0400 Mean blood pressure 91 mm[Hg] Brent Myron [facility] 02-18-2023 09:11-0400 Respiratory rate 16 /min Brent Sanches [facility] 02-18-2023 09:11-0400 SaO2% (BldA) [Mass fraction] 98 % Brent Myron [facility] 02-18-2023 09:11-0400 Systolic blood pressure 132 mm[Hg] Brent Myron [facility] 02-18-2023 07:45-0400 Body temperature 98.96 [degF] Brent Myron [facility] 02-18-2023 07:45-0400 Diastolic blood pressure 80 mm[Hg] Brent Myron [facility] 02-18-2023 07:45-0400 Heart rate 95 /min Brent Myron [facility] 02-18-2023 07:45-0400 Respiratory rate 16 /min Brent Myron [facility] 02-18-2023 07:45-0400 SaO2% (BldA) [Mass fraction] 100 % Brent Sanches [facility] 02-18-2023 07:45-0400 Systolic blood pressure 153 mm[Hg] Brent Sanches [facility] 01-12-2023 09:49-0400 Body height 170.2 cm Tanvir Black MD Work Phone: [employer] 01-12-2023 09:49-0400 Body mass index (BMI) [Ratio] 27.28 kg/m2 Tanvir Black MD Work Phone: [employer] 01-12-2023 09:49-0400 Body temperature 96.6 [degF] Tanvir Black MD Work Phone: [employer] 01-12-2023 09:49-0400 Body weight 79.02 kg Tanvir Black MD Work Phone: [employer] 01-12-2023 09:49-0400 Diastolic blood pressure 56 mm[Hg] Tanvir Black MD Work Phone: [employer] 01-12-2023 09:49-0400 Heart rate 79 /min Tanvir Black MD Work Phone: [employer] 01-12-2023 09:49-0400 Respiratory rate 20 /min Tanvir Black MD Work Phone: [employer] 01-12-2023 09:49-0400 SaO2% (BldA) [Mass fraction] 100 % Tanvir Black MD Work Phone: [employer] 01-12-2023 09:49-0400 Systolic blood pressure 121 mm[Hg] Tanvir Black MD Work Phone: [employer] 01-12-2023 08:58-0400 Body mass index (BMI) [Ratio] 27.41 kg/m2 Marcello Ibanez MD Work Phone: [employer] 01-12-2023 08:58-0400 Body temperature 96.6 [degF] Marcello Ibanez MD Work Phone: [employer] 01-12-2023 08:58-0400 Body weight 79.38 kg Marcello Ibanez MD Work Phone: [employer] 01-12-2023 08:58-0400 Diastolic blood pressure 56 mm[Hg] Marcello Ibanez MD Work Phone: [employer] 01-12-2023 08:58-0400 Heart rate 79 /min Marcello Ibanez MD Work Phone: [employer] 01-12-2023 08:58-0400 Systolic blood pressure 121 mm[Hg] Marcello Ibanez MD Work Phone: [employer] 12-16-2022 09:49-0400 Body height 170.2 cm Dejuan Lechuga MD Work Phone: [employer] 12-16-2022 09:49-0400 Body mass index (BMI) [Ratio] 28.05 kg/m2 Dejuan Lechuga MD Work Phone: [employer] 12-16-2022 09:49-0400 Body weight 81.24 kg Dejuan Lechuga MD Work Phone: [employer] 12-16-2022 09:49-0400 Diastolic blood pressure 57 mm[Hg] Dejuan Lechuga MD Work Phone: [employer] 12-16-2022 09:49-0400 Heart rate 85 /min Dejuan Lechuga MD Work Phone: [employer] 12-16-2022 09:49-0400 SaO2% (BldA) [Mass fraction] 100 % Dejuan Lechuga MD Work Phone: [employer] 12-16-2022 09:49-0400 Systolic blood pressure 113 mm[Hg] Dejuan Lechuga MD Work Phone: [employer] 11-13-2022 11:23-0500 Body mass index (BMI) [Ratio] 26.63 kg/m2 Tanvir Black MD Work Phone: [employer] 11-13-2022 11:23-0500 Body temperature 98.6 [degF] Tanvir Black MD Work Phone: [employer] 11-13-2022 11:23-0500 Body weight 77.11 kg Tanvir Black MD Work Phone: [employer] 11-13-2022 11:23-0500 Diastolic blood pressure 62 mm[Hg] Tanvir Black MD Work Phone: [employer] 11-13-2022 11:23-0500 Heart rate 86 /min Tanvir Black MD Work Phone: [employer] 11-13-2022 11:23-0500 Respiratory rate 14 /min Tanvir Black MD Work Phone: [employer] 11-13-2022 11:23-0500 SaO2% (BldA) [Mass fraction] 100 % Tanvir Black MD Work Phone: [employer] 11-13-2022 11:23-0500 Systolic blood pressure 153 mm[Hg] Tanvir Black MD Work Phone: [employer] 10-27-2022 09:49-0500 Body mass index (BMI) [Ratio] 26.59 kg/m2 Marcello Ibanez MD Work Phone: [employer] 10-27-2022 09:49-0500 Body temperature 97.5 [degF] Marcello Ibanez MD Work Phone: [employer] 10-27-2022 09:49-0500 Body weight 77.02 kg Marcello Ibanez MD Work Phone: [employer] 10-27-2022 09:49-0500 Diastolic blood pressure 55 mm[Hg] Marcello Ibanez MD Work Phone: [employer] 10-27-2022 09:49-0500 Heart rate 84 /min Marcello Ibanez MD Work Phone: [employer] 10-27-2022 09:49-0500 SaO2% (BldA) [Mass fraction] 100 % [facility]cello [facility]banez MD [facility]: [facility] 10-27-2022 09:49-0500 Systolic blood pressure 128 mm[Hg] Marcello Ibanez MD Work Phone: [facility] 08-25-2022 13:44-0500 Body mass index (BMI) [Ratio] 26.78 kg/m2 Theo Burks MD Work Phone: [employer] 08-25-2022 13:44-0500 Body temperature 98.49 [degF] Theo Burks MD Work Phone: [employer] 08-25-2022 13:44-0500 Body weight 77.56 kg Theo Burks MD Work Phone: [employer] 08-25-2022 13:44-0500 Diastolic blood pressure 65 mm[Hg] Theo Burks MD Work Phone: [employer] 08-25-2022 13:44-0500 Heart rate 69 /min Theo Burks MD Work Phone: [employer] 08-25-2022 13:44-0500 Respiratory rate 18 /min Theo Burks MD Work Phone: [employer] 08-25-2022 13:44-0500 SaO2% (BldA) [Mass fraction] 99 % Theo Burks MD Work Phone: [employer] 08-25-2022 13:44-0500 Systolic blood pressure 132 mm[Hg] Theo Burks MD Work Phone: [facility] 08-25-2022 10:42-0500 Body mass index (BMI) [Ratio] 26.94 kg/m2 Abbey Alvarez MD Work Phone: [facility] 08-25-2022 10:42-0500 Body temperature 98.2 [degF] Abbey Alvarez MD Work Phone: [employer] 08-25-2022 10:42-0500 Body weight 78.02 kg Abbey Alvarez MD Work Phone: [employer] 08-25-2022 10:42-0500 Diastolic blood pressure 50 mm[Hg] Abbey Alvarez MD Work Phone: [employer] 08-25-2022 10:42-0500 Heart rate 82 /min Abbey Alvarez MD Work Phone: [employer] 08-25-2022 10:42-0500 Systolic blood pressure 129 mm[Hg] Abbey Alvarez MD Work Phone: [employer] 08-15-2022 15:50-0500 Heart rate 78 /min Ann-Marie Bray MD Work Phone: [employer] 08-15-2022 15:50-0500 Respiratory rate 14 /min Ann-Marie Bray MD Work Phone: [employer] 08-15-2022 15:50-0500 SaO2% (BldA) [Mass fraction] 98 % Ann-Marie Bray MD Work Phone: [employer] 08-15-2022 12:51-0500 Body mass index (BMI) [Ratio] 20.52 kg/m2 Ann-Marie Bray MD Work Phone: [employer] 08-15-2022 12:51-0500 Body temperature 98.49 [degF] Ann-Marie Bray MD Work Phone: [employer] 08-15-2022 12:51-0500 Body weight 59.42 kg Ann-Marie Bray MD Work Phone: [employer] 08-15-2022 12:51-0500 Diastolic blood pressure 70 mm[Hg] Ann-Marie Bray MD Work Phone: [employer] 08-15-2022 12:51-0500 Systolic blood pressure 147 mm[Hg] Ann-Marie Bray MD Work Phone: [employer] 08-15-2022 10:16-0500 Body mass index (BMI) [Ratio] 26.72 kg/m2 Nenita Franco MD Work Phone: [employer] 08-15-2022 10:16-0500 Body temperature 98.6 [degF] Nenita Franco MD Work Phone: [employer] 08-15-2022 10:16-0500 Body weight 77.38 kg Nenita Franco MD Work Phone: [employer] 08-15-2022 10:16-0500 Diastolic blood pressure 56 mm[Hg] Nenita Franco MD Work Phone: [employer] 08-15-2022 10:16-0500 Heart rate 85 /min Nenita Franco MD Work Phone: [employer] 08-15-2022 10:16-0500 Respiratory rate 18 /min Nenita Franco MD Work Phone: [employer] 08-15-2022 10:16-0500 SaO2% (BldA) [Mass fraction] 100 % Nenita Franco MD Work Phone: [employer] 08-15-2022 10:16-0500 Systolic blood pressure 136 mm[Hg] Nenita Franco MD Work Phone: [employer] 08-14-2022 13:12-0500 Diastolic blood pressure 60 mm[Hg] Maria C Faustin APRN-RN DOCUMENT IMPROVEMENT SPECIALIST Work Phone: [facility] 08-14-2022 13:12-0500 Systolic blood pressure 128 mm[Hg] Maria C Faustin APRN-RN DOCUMENT IMPROVEMENT SPECIALIST Work Phone: [facility] 08-14-2022 13:10-0500 Body mass index (BMI) [Ratio] 27.1 kg/m2 Maria C Faustin APRN-RN DOCUMENT IMPROVEMENT SPECIALIST Work Phone: [employer] 08-14-2022 13:10-0500 Body temperature 98.2 [degF] Maria C Faustin APRN-RN DOCUMENT IMPROVEMENT SPECIALIST Work Phone: [facility] 08-14-2022 13:10-0500 Body weight 78.47 kg Maria C Faustin APRN-RN DOCUMENT IMPROVEMENT SPECIALIST Work Phone: [employer] 08-14-2022 13:10-0500 Heart rate 84 /min Maria C Gricelda SILVESTRE Work Phone: [employer] 08-14-2022 11:51-0500 Body height 170.2 cm Tanvir Black MD Work Phone: [employer] 08-14-2022 11:51-0500 Body mass index (BMI) [Ratio] 26.78 kg/m2 Tanvir Black MD Work Phone: [employer] 08-14-2022 11:51-0500 Body temperature 99.19 [degF] Tanvir Black MD Work Phone: [employer] 08-14-2022 11:51-0500 Body weight 77.56 kg Tanvir Black MD Work Phone: [employer] 08-14-2022 11:51-0500 Diastolic blood pressure 60 mm[Hg] Tanvir Black MD Work Phone: [employer] 08-14-2022 11:51-0500 Heart rate 90 /min Tanvir Black MD Work Phone: [employer] 08-14-2022 11:51-0500 Respiratory rate 14 /min Tanvir Black MD Work Phone: [employer] 08-14-2022 11:51-0500 SaO2% (BldA) [Mass fraction] 100 % Tanvir Black MD Work Phone: [employer] 08-14-2022 11:51-0500 Systolic blood pressure 141 mm[Hg] Tanvir Black MD Work Phone: [employer] 05-06-2022 10:03-0400 Body height 170.2 cm Tanvir Black MD Work Phone: [employer] 05-06-2022 10:03-0400 Body mass index (BMI) [Ratio] 26.78 kg/m2 Tanvir Black MD Work Phone: [employer] 05-06-2022 10:03-0400 Body temperature 98.4 [degF] Tanvir Black MD Work Phone: [employer] 05-06-2022 10:03-0400 Body weight 77.56 kg Tanvir Black MD Work Phone: [employer] 05-06-2022 10:03-0400 Diastolic blood pressure 70 mm[Hg] Tanvir Black MD Work Phone: [employer] 05-06-2022 10:03-0400 Heart rate 75 /min Tanvir Black MD Work Phone: [employer] 05-06-2022 10:03-0400 Respiratory rate 16 /min Tanvir Black MD Work Phone: [employer] 05-06-2022 10:03-0400 SaO2% (BldA) [Mass fraction] 100 % Tanvir Black MD Work Phone: [employer] 05-06-2022 10:03-0400 Systolic blood pressure 137 mm[Hg] Tanvir Black MD Work Phone: [employer] 03-13-2022 11:39-0400 Body mass index (BMI) [Ratio] 25.84 kg/m2 Tanvir Black MD Work Phone: [employer] 03-13-2022 11:39-0400 Body temperature 98.49 [degF] Tanvir Black MD Work Phone: [employer] 03-13-2022 11:39-0400 Body weight 74.84 kg Tanvir Black MD Work Phone: [employer] 03-13-2022 11:39-0400 Diastolic blood pressure 69 mm[Hg] Tanvir Black MD Work Phone: [employer] 03-13-2022 11:39-0400 Heart rate 85 /min Tanvir Black MD Work Phone: [employer] 03-13-2022 11:39-0400 Respiratory rate 14 /min Tanvir Black MD Work Phone: [facility] 03-13-2022 11:39-0400 SaO2% (BldA) [Mass fraction] 100 % Tanvir Black MD Work Phone: [facility] 03-13-2022 11:39-0400 Systolic blood pressure 137 mm[Hg] Tanvir Black MD Work Phone: [facility] 02-17-2022 16:07-0400 Diastolic blood pressure 76 mm[Hg] [facility] 02-17-2022 16:07-0400 Heart rate 84 /min [facility] 02-17-2022 16:07-0400 Mean blood pressure 94 mm[Hg] [facility] 02-17-2022 16:07-0400 Respiratory rate 18 /min [facility] 02-17-2022 16:07-0400 SaO2% (BldA) [Mass fraction] 98 % [facility] 02-17-2022 16:07-0400 Systolic blood pressure 129 mm[Hg] [facility] 02-17-2022 15:18-0400 Diastolic blood pressure 75 mm[Hg] [facility] 02-17-2022 15:18-0400 Heart rate 79 /min [facility] 02-17-2022 15:18-0400 Mean blood pressure 92 mm[Hg] [facility] 02-17-2022 15:18-0400 Respiratory rate 16 /min [facility] 02-17-2022 15:18-0400 SaO2% (BldA) [Mass fraction] 99 % [facility] 02-17-2022 15:18-0400 Systolic blood pressure 126 mm[Hg] [facility] 02-17-2022 14:58-0400 Diastolic blood pressure 76 mm[Hg] [facility] 02-17-2022 14:58-0400 Heart rate 79 /min [facility] 02-17-2022 14:58-0400 Mean blood pressure 99 mm[Hg] [facility] 02-17-2022 14:58-0400 Respiratory rate 18 /min [facility] 02-17-2022 14:58-0400 SaO2% (BldA) [Mass fraction] 100 % [facility] 02-17-2022 14:58-0400 Systolic blood pressure 144 mm[Hg] [facility] 02-17-2022 12:30-0400 Body temperature 98.24 [degF] [facility] 02-17-2022 12:30-0400 Heart rate 101 /min [facility] 02-17-2022 12:30-0400 Respiratory rate 18 /min [facility] 02-11-2022 10:22-0400 Body height 170.2 cm Tanvir Black MD Work Phone: [facility] 02-11-2022 10:22-0400 Body mass index (BMI) [Ratio] 26.16 kg/m2 Tanvir Black MD Work Phone: [facility] 02-11-2022 10:22-0400 Body temperature 98.2 [degF] Tanvir Black MD Work Phone: [facility] 02-11-2022 10:22-0400 Body weight 75.75 kg Tanvir Black MD Work Phone: [facility] 02-11-2022 10:22-0400 Diastolic blood pressure 81 mm[Hg] Tanvir Black MD Work Phone: [facility] 02-11-2022 10:22-0400 Heart rate 103 /min Tanvir Black MD Work Phone: [facility] 02-11-2022 10:22-0400 Respiratory rate 16 /min Tanvir Black MD Work Phone: [employer] 02-11-2022 10:22-0400 SaO2% (BldA) [Mass fraction] 100 % Tanvir Black MD Work Phone: [employer] 02-11-2022 10:22-0400 Systolic blood pressure 157 mm[Hg] Tanvir Black MD Work Phone: [facility] 01-17-2022 14:20-0400 Body temperature 98.29 [degF] Francisco Mraino MD Work Phone: [employer] 01-17-2022 14:20-0400 Diastolic blood pressure 56 mm[Hg] Francisco Marino MD Work Phone: [employer] 01-17-2022 14:20-0400 Heart rate 83 /min Francisco Marino MD Work Phone: [employer] 01-17-2022 14:20-0400 Respiratory rate 18 /min Francisco Marino MD Work Phone: [employer] 01-17-2022 14:20-0400 SaO2% (BldA) [Mass fraction] 100 % Francisco Marino MD Work Phone: [employer] 01-17-2022 14:20-0400 Systolic blood pressure 125 mm[Hg] Francisco Marino MD Work Phone: [employer] 01-17-2022 06:00-0400 Body mass index (BMI) [Ratio] 22.77 kg/m2 Francisco Marino MD Work Phone: [employer] 01-17-2022 06:00-0400 Body weight 65.95 kg Francisco Marino MD Work Phone: [employer] 01-10-2022 18:36-0400 Heart rate 96 /min Francisco Marino MD Work Phone: [employer] 01-08-2022 21:47-0400 Heart rate 76 /min Francisco Marino MD Work Phone: [facility] 01-08-2022 14:00-0400 Hourly Rounding Aldair Ila [facility] 01-08-2022 14:00-0400 Promise to Return Aldair Ila [facility] 01-08-2022 14:00-0400 SaO2% (BldA) [Mass fraction] 100 % Aldair Ila [facility] 01-08-2022 08:00-0400 Body height 170.2 cm Francisco Marino MD Work Phone: [facility] 01-08-2022 05:00-0400 Diastolic blood pressure 70 mm[Hg] Aldair Ila [facility] 01-08-2022 05:00-0400 Heart rate 87 /min Aldair Ila [facility] 01-08-2022 05:00-0400 Mean blood pressure 91 mm[Hg] Aldair Ila [facility] 01-08-2022 05:00-0400 Respiratory rate 18 /min Aldair Ila [facility] 01-08-2022 05:00-0400 Systolic blood pressure 134 mm[Hg] Aldair Ila [facility] 01-08-2022 04:00-0400 Body temperature 98.96 [degF] Aldair Ila [facility] 01-08-2022 04:00-0400 Diastolic blood pressure 74 mm[Hg] Aldair Ila [facility] 01-08-2022 04:00-0400 Heart rate 96 /min Aldair Ila [facility] 01-08-2022 04:00-0400 Mean blood pressure 90 mm[Hg] Aldair Ila [facility] 01-08-2022 04:00-0400 Respiratory rate 20 /min Aldair Ila [facility] 01-08-2022 04:00-0400 SaO2% (BldA) [Mass fraction] 97 % Aldair Ila [facility] 01-08-2022 04:00-0400 Systolic blood pressure 122 mm[Hg] Aldair Ila [facility] 01-08-2022 03:00-0400 Diastolic blood pressure 72 mm[Hg] Aldair Ila [facility] 01-08-2022 03:00-0400 Heart rate 80 /min Aldair Ila [facility] 01-08-2022 03:00-0400 SaO2% (BldA) [Mass fraction] 98 % Aldair Ila [facility] 01-08-2022 03:00-0400 Systolic blood pressure 126 mm[Hg] Aldair Ila [facility] 01-08-2022 00:00-0400 Body temperature 98.42 [degF] Aldair Ila [facility] 01-07-2022 20:30-0400 Body temperature 98.06 [degF] Aldair Ila [facility] 01-07-2022 20:00-0400 Blood Pressure Location Aldair Ila [facility] 01-07-2022 19:13-0400 Heart rate 112 /min Aldair Ila [facility] 01-07-2022 19:00-0400 Blood Pressure Location Aldair Ila [facility] 01-07-2022 18:00-0400 Blood Pressure Location Aldair Thorpe [facility] 01-07-2022 17:04-0400 Heart rate 110 /min Aldair Thorpe [facility] 01-07-2022 14:32-0400 Heart rate 117 /min [facility] Ila [facility] Encounters Encounter Date Encounter Type Care Provider Facility Start: 09-03-2023 End: 09-04-2023 ambulatory Matrin Talal Sarmini Facility:[facility] Start: 09-03-2023 End: 09-03-2023 Patient encounter procedure Mario Talal Bryannamini [facility] Start: 09-01-2023 End: 09-02-2023 ambulatory Lisa Lopez Facility:[facility] Start: 09-01-2023 End: 09-01-2023 Patient encounter procedure Martin Talal Bryannamini [facility] Start: 08-26-2023 End: 08-27-2023 ambulatory Lisa Lopez Facility:[facility] Start: 08-26-2023 End: 08-26-2023 Patient encounter procedure Lisa Lopez [facility] Start: 08-25-2023 Refill Tanvir Black MD Work Phone: [facility] Comment on above: Refill Start: 08-06-2023 End: 08-07-2023 ambulatory Teddy Hitchcock Facility:[facility] Start: 08-06-2023 End: 08-06-2023 Patient encounter procedure Teddy Hitchcock [facility] Start: 08-03-2023 ambulatory Lisa Lopez Facil ity:[facility] Start: 07-27-2023 ambulatory Lisa Lopez Facilit y:[facility] Start: 07-24-2023 End: 07-25-2023 ambulatory Lisa Lopez Facility:[facility] Start: 07-24-2023 End: 07-25-2023 ambulatory Lisa Lopez Facility:[facility] Start: 07-24-2023 End: 07-24-2023 Lab Drop off Lisa Lopez [facility] Start: 07-24-2023 End: 07-24-2023 Patient encounter procedure Lisa Lopez [facility] Start: 07-23-2023 End: 07-24-2023 ambulatory Teddy Hitchcock Facility:[facility] Start: 07-23-2023 End: 07-23-2023 Patient encounter procedure Teddy Hitchcock [facility] Start: 07-20-2023 E-mail encounter fro m caregiver Tanvir Black MD Work Phone: [facility] Start: 07-20-2023 Patient encounter procedure Tanvir Black MD Work Phone: [facility] Comment on above: Had to reschedule ap pointment Start: 07-16-2023 ambulatory Lisa Lopez Facilit y:[facility] Start: 07-16-2023 End: 07-17-2023 ambulatory Teddy Hitchcock Facility:[facility] Start: 07-16-2023 End: 07-16-2023 Patient encounter procedure Teddy Hitchcock [facility] Start: 07-13-2023 Refill Marcello Ibanez MD Work Phone: [facility] Comment on above: Refill Start: 07-11-2023 Refill Tanvir Black MD Work Phone: [facility] Comment on above: Refill Start: 07-06-2023 End: 07-07-2023 Pre-admission assessment Teddy Gauthierdamaso [facility] Start: 06-25-2023 End: 06-26-2023 ambulatory Teddy Gauthierdamaso Facility:[facility] Start: 06-25-2023 End: 06-25-2023 Patient encounter procedure Teddy Rodarte Osbaldoyanickdamaso [facility] Start: 06-19-2023 End: 06-19-2023 Emergency department patient visit Teddy Luna Facility:[facility] Start: 06-19-2023 End: 06-19-2023 Emergency department patient visit Teddy Luna [facility] Start: 06-18-2023 End: 06-19-2023 ambulatory Teddy Rodarte Osbaldoyanicky Facility:[facility] Start: 06-18-2023 End: 06-18-2023 Patient encounter procedure Teddy Rodarte Osbaldoyanickdamaso [facility] Start: 06-11-2023 End: 06-12-2023 ambulatory Teddy Gauthiery Facility:[facility] Start: 06-04-2023 End: 06-05-2023 ambulatory Teddy Gauthiery Facility:[facility] Start: 06-04-2023 End: 06-04-2023 Patient encounter procedure Teddy Gauthiery [facility] Start: 05-25-2023 End: 05-26-2023 ambulatory Teddy Gauthiery Facility:[facility] Start: 05-25-2023 End: 05-25-2023 Patient encounter procedure Teddy Hitchcock [facility] Start: 05-14-2023 End: 05-15-2023 ambulatory Teddy Hitchcock Facility:[facility] Start: 05-14-2023 End: 05-14-2023 Patient encounter procedure Teddy Hitchcock [facility] Start: 05-08-2023 End: 05-09-2023 ambulatory Teddy Hitchcock Facility:[facility] Start: 05-07-2023 End: 05-08-2023 ambulatory Teddy Hitchcock Facility:[facility] Start: 05-07-2023 End: 05-07-2023 Patient encounter procedure Teddy Aster Hitchcock [facility] Start: 04-30-2023 End: 05-02-2023 ambulatory Teddy Hitchcock Facility:[facility] Start: 04-30-2023 End: 05-01-2023 Pre-admission assessment Teddy Aster Hitchcock [facility] Start: 04-24-2023 End: 04-24-2023 ambulatory Jarrod Eddy Other [facility] [employer] Other Start: 04-24-2023 Office outpatient ne w 45 minutes Jarrod Eddy [facility] V[facility] Start: 04-24-2023 Refill Tanvir Black MD Work Phone: [facility] Comment on above: Refill Start: 04-23-2023 End: 04-24-2023 ambulatory Teddy Rodarte Osbaldoyanickdamaso Facility:[facility] Start: 04-23-2023 End: 04-23-2023 Patient encounter procedure Teddy Hitchcock [facility] Start: 04-22-2023 ambulatory Tanvir Black MD Work Phone: [facility] Comment on above: lab results Start: 04-22-2023 E-mail encounter fro m caregiver Tanvir Black MD Work Phone: [facility] Start: 04-21-2023 End: 04-22-2023 ambulatory UNKNOWN PROVIDER Facility:[facility] Start: 04-21-2023 Encounter for other specified special examinations UNKNOWN PROVIDER [facility] Start: 04-21-2023 End: 04-21-2023 Patient encounter status Tanvir Black MD Work Phone: [facility] Start: 04-21-2023 End: 04-21-2023 Subsequent hospital visit by physician Monie Hernandez RN [facility] Comment on above: Dx: Multiple myeloma , remission status unspecified (HCC) (Primary Dx) 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) Start: 04-16-2023 End: 04-17-2023 ambulatory Teddy Hitchcock Facility:[facility] Start: 04-16-2023 End: 04-16-2023 Patient encounter procedure Teddy Hitchcock [facility] Start: 04-13-2023 End: 04-14-2023 ambulatory Teddy Hitchcock Facility:[facility] Start: 04-13-2023 End: 04-13-2023 Patient encounter procedure Teddy Hitchcock [facility] Start: 03-30-2023 End: 03-31-2023 ambulatory Teddy Hitchcock Facility:[facility] Start: 03-22-2023 End: 03-22-2023 Emergency department patient visit Martin Reese Facility:[facility] Start: 03-22-2023 End: 03-22-2023 Emergency department patient visit Martin Reese [facility] Start: 03-22-2023 Letter encounter Tanvir Black MD Work Phone: [facility] Comment on above: Refill Start: 03-16-2023 End: 03-17-2023 ambulatory Teddy Hitchcock Facility:[facility] Start: 03-16-2023 End: 03-16-2023 Patient encounter procedure Teddy Hitchcock [facility] Start: 03-06-2023 Refill Theo wilder MD Work Phone: [facility] Comment on above: Refill Prior Authorization Start: 03-05-2023 End: 03-06-2023 ambulatory SELF REFERRAL Facility:[facility] Start: 03-05-2023 End: 03-05-2023 Patient encounter procedure Teddy Hitchcock [facility] Start: 02-27-2023 Telephone encounter Nighat Elaine cecelia [employer]ERCIAL CRABBER-RN DOCUMENT IMPROVEMENT SPECIALIST Work Phone: [facility] Comment on above: Left Message To Call Back Start: 02-18-2023 End: 02-18-2023 Emergency department patient visit Brent Sanches Facility:[facility] Start: 02-18-2023 End: 02-18-2023 Emergency department patient visit Brent Sanches [facility] Start: 02-09-2023 Refill Dejuan Lechuga MD Work Phone: [facility] Comment on above: Refill Start: 01-20-2023 ambulatory UNKNOWN PROVIDER Facili ty:[facility] Start: 01-12-2023 End: 01-13-2023 ambulatory UNKNOWN PROVIDER Facility:[facility] Start: 01-12-2023 End: 01-12-2023 ambulatory UNKNOWN PROVIDER Facility:[facility] Start: 01-12-2023 End: 01-12-2023 Subsequent hospital visit by physician Meka Lucas RN [facility] Comment on above: 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) Start: 01-12-2023 End: 01-12-2023 Office outpatient visit 25 minutes Marcello Ibanez MD Work Phone: [facility] Comment on above: Liver fibrosis (Prim tanner Dx); Alcohol use disorder in remission; Elevated liver enzymes; Jaundice; Body mass index (BMI) 27.0-27.9, adult Start: 12-20-2022 Letter encounter Theo bright MD Work Phone: [facility] Start: 12-16-2022 End: 12-16-2022 ambulatory UNKNOWN PROVIDER Facility:[facility] Start: 12-16-2022 End: 12-16-2022 Office outpatient visit 15 minutes Dejuan Lechuga MD Work Phone: [facility] Comment on above: Rib pain (Primary Dx ); Alcoholic cirrhosis of liver without ascites (HCC); Body mass index (BMI) 28.0-28.9, adult Start: 12-15-2022 End: 12-15-2022 Phys/qhp telephone evaluation 11-20 min Theo Burks MD Work Phone: [facility] Comment on above: Rib pain (Primary Dx ) Start: 12-15-2022 End: 12-19-2022 ambulatory UNKNOWN PROVIDER Facility:[facility] Start: 12-15-2022 Letter encounter Theo bright MD Work Phone: [facility] Start: 12-15-2022 Telephone encounter Theo Burks MD Work Phone: [facility] Start: 12-03-2022 Refill Marcello Ibanez MD Work Phone: [facility] Comment on above: Refill Start: 11-13-2022 End: 11-14-2022 ambulatory UNKNOWN PROVIDER Facility:[facility] Start: 11-13-2022 End: 11-13-2022 Subsequent hospital visit by physician Tanvir Black MD Work Phone: [facility] Comment on above: 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) Start: 10-27-2022 Letter encounter Theo bright MD Work Phone: [facility] Start: 10-27-2022 End: 11-03-2022 ambulatory UNKNOWN PROVIDER Facility:[facility] Start: 10-27-2022 End: 11-03-2022 Office outpatient visit 25 minutes Marcello Ibanez MD Work Phone: [facility] Comment on above: Alcoholic cirrhosis of liver without ascites (HCC) (Primary Dx); Nausea Alcoholic fatty live r (Primary Dx); Nausea; Hyperbilirubinemia; Alcoholic hepatitis, unspecified whether ascites present Alcoholic fatty live r (Primary Dx); Nausea; Hyperbilirubinemia; Alcoholic hepatitis, unspecified whether ascites present; Body mass index (BMI) 26.0-26.9, adult Start: 10-01-2022 Refill Abbey Love Work Phone: [facility] Comment on above: Refill I have a few questio ns Start: 09-21-2022 Letter encounter Theo bright MD Work Phone: [facility] Start: 09-20-2022 Telephone encounter Tanika lange RN Work Phone: [facility] Line Comment on above: Cancel Appointment Start: 09-16-2022 Orders Only Maria C Faustin [employer]BER-RN DOCUMENT IMPROVEMENT SPECIALIST Work Phone: [facility] Start: 09-15-2022 Orders Only Samantha Stauffer COMMERCIAL CRABBER-RN DOCUMENT IMPROVEMENT SPECIALIST Work Phone: [facility] Gastroenter[facility] Start: 08-29-2022 End: 08-29-2022 ambulatory UNKNOWN PROVIDER Facility:[facility] Start: 08-29-2022 End: 08-29-2022 Phys/qhp telephone evaluation 5-10 min Theo Burks MD Work Phone: [facility] Comment on above: Cellulitis, unspecif ied cellulitis site (Primary Dx); Muscle soreness Start: 08-25-2022 End: 08-26-2022 Orders Only Abbey Alvarez MD Work Phone: [facility] Comment on above: Arrived Start: 08-25-2022 End: 08-26-2022 Office outpatient visit 25 minutes Abbey Alvarez MD Work Phone: [facility] Comment on above: Alcoholic hepatitis without [...] adult Start: 08-22-2022 ambulatory Jim Hill RN [facility] Comment on above: internal med request Start: 08-22-2022 E-mail encounter fro m caregiver Jim Hill RN [facility] Start: 08-21-2022 End: 08-22-2022 ambulatory UNKNOWN PROVIDER Facility:[facility] Start: 08-21-2022 Letter encounter [facility] lee ann [facility] Start: 08-16-2022 Orders Only Tanvir Black MD Work Phone: [facility] Start: 08-15-2022 End: 08-15-2022 Emergency department patient visit UNKNOWN PROVIDER Facility:[facility] Start: 08-15-2022 End: 08-15-2022 ambulatory Tanvir Black MD Work Phone: [facility] Comment on above: Severe pain Start: 08-15-2022 E-mail encounter fro m caregiver Tanvir Black MD Work Phone: [facility] Start: 08-15-2022 End: 08-15-2022 Emergency department patient visit Ann-Marie Bray MD Work Phone: [facility] Comment on above: Leg/thigh symptoms ( Pt states has infection in R leg x 4 days, seen yesterday for same) Start: 08-15-2022 End: 08-15-2022 Office outpatient new 30 minutes Nenita Franco MD Work Phone: [facility] Comment on above: Cellulitis, unspecif ied cellulitis site (Primary Dx); Body mass index (BMI) 26.0-26.9, adult Start: 08-14-2022 End: 08-15-2022 ambulatory UNKNOWN PROVIDER Facility:[facility] Start: 08-14-2022 End: 08-14-2022 ambulatory UNKNOWN PROVIDER Facility:[facility] Start: 08-14-2022 Letter encounter Balbina tavo Oncology Medical Start: 08-14-2022 End: 08-14-2022 ambulatory UNKNOWN PROVIDER Facility:[facility] Start: 08-14-2022 End: 08-14-2022 Office consultation new/estab patient 60 min Maria C SILVESTRE Work Phone: [facility] Comment on above: Alcoholic cirrhosis, unspecified whether ascites present (HCC) (Primary Dx); Iron deficiency anemia, unspecified iron deficiency anemia type; Alcoholic cirrhosis of liver without ascites (HCC); Body mass index (BMI) 27.0-27.9, adult Start: 08-14-2022 End: 08-14-2022 Subsequent hospital visit by physician Jasmyne Grimaldo RN [facility] Comment on above: Dx: Thrombocytopenia (HCC) (Primary Dx) Start: 08-14-2022 End: 08-14-2022 Office outpatient visit 40 minutes Tanvir Black MD Work Phone: [facility] Comment on above: 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) Start: 08-08-2022 ambulatory Tanvir Black MD Work Phone: [facility] Comment on above: Question Start: 08-08-2022 E-mail encounter giana m caregiver Tanvir Black MD Work Phone: [facility] Start: 05-06-2022 End: 05-06-2022 Office outpatient visit 40 minutes Tanvir Black MD Work Phone: [facility] Comment on above: 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) Start: 05-06-2022 End: 05-06-2022 Subsequent hospital visit by physician Leslie Canela RN Work Phone: [facility] Comment on above: 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) Start: 05-05-2022 Letter encounter [facility] Start: 03-13-2022 Letter encounter [facility] Start: 03-13-2022 End: 03-13-2022 Subsequent hospital visit by physician Rosita Le RN Work Phone: [facility] Comment on above: 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 Comment on above: Prior Authorization Start: 01-08-2022 End: 01-17-2022 Evaluation and management of inpatient Francisco Marino MD Work Phone: Inpatient [facility]B Start: 01-07-2022 End: 01-08-2022 Evaluation and management of inpatient Aldair S Ila [facility] Procedures Date Procedure Procedure Detail Performing Clinician Start: 04-21-2023 Hepatic function panel Tanvir Black MD Work Phone: Start: 04-21-2023 Lactate dehydrogenase ldh Tanvir Black MD Work Phone: Start: 01-12-2023 Blood count complete automated Marcello Ibanez MD Work Phone: Start: 01-12-2023 Hepatic function panel Marcello Ibanez MD Work Phone: Start: 11-13-2022 Alpha-fetoprotein serum Maria C Faustin [employer]-RN DOCUMENT IMPROVEMENT SPECIALIST Work Phone: Start: 11-13-2022 Antihuman globulin d irect each antiserum Tanvir Black MD Work Phone: Start: 08-25-2022 Assay of ferritin Camille Alvarez MD Work Phone: Start: 08-25-2022 Hepatic function panel Abbey Alvarez MD Work Phone: Start: 08-15-2022 Radiologic exam knee complete 4/more views Dante French MD Work Phone: Start: 08-14-2022 Urnls dip [...] Start: 01-17-2022 End: 01-17-2022 Lactate dehydrogenase ldh Ariopher [facility] DO Work Phone: Start: 01-16-2022 Glucose [...] Work Phone: Start: 01-16-2022 Lactate dehydrogenase ldh Abhinav De La Vega DO Work Phone: Start: 01-15-2022 Glucose blood reagen t strip Leon Santana MD Work Phone: Start: 01-15-2022 Glucose blood reagen t strip Leon Santana MD Work Phone: Start: 01-15-2022 Glucose blood reagen t strip Leon Santana MD Work Phone: Start: 01-15-2022 Hepatic function panel Iyv Chua MD Work Phone: Start: 01-15-2022 End: 01-15-2022 Lactate dehydrogenase ldh Cjer [facility] DO Work Phone: Start: 01-14-2022 Glucose blood reagen t strip Leon Santana MD Work Phone: Start: 01-14-2022 Glucose blood reagen t strip Leon Santana MD Work Phone: Start: 01-14-2022 Hepatic function panel Ivy Chua MD Work Phone: Start: 01-14-2022 End: 01-14-2022 Lactate dehydrogenase ldh Abhinav [facility] DO Work Phone: Start: 01-13-2022 Glucose blood reagen t strip Leon Santana MD Work Phone: Start: 01-13-2022 Glucose blood reagen t strip Leon Santana MD Work Phone: Start: 01-13-2022 Glucose blood reagen t strip Leon Santana MD Work Phone: Start: 01-13-2022 Hepatic function panel Ivy Chua MD Work Phone: Start: 01-13-2022 End: 01-13-2022 Lactate dehydrogenase ldh Abhinav [facility] DO Work Phone: Start: 01-12-2022 Glucose blood reagen t strip Leon Santana MD Work Phone: Start: 01-12-2022 Blood count smear mc rscp w/mnl difrntl wbc count Ivy Chua MD Work Phone: Start: 01-12-2022 Hepatic function panel Ivy Chua MD Work Phone: Start: 01-12-2022 End: 01-12-2022 Lactate dehydrogenase ldh Abhinav [facility] DO Work Phone: Start: 01-11-2022 Glucose blood reagen t strip Leon Santana MD Work Phone: Start: 01-11-2022 Blood typing serologic abo Abhinav De La Vega DO Work Phone: Start: 01-11-2022 Blood count smear mc rscp w/mnl difrntl wbc count Ivy Chua MD Work Phone: Start: 01-11-2022 Blood typing, ABO, R ho(D) and RBC antibody screening Abhinav De La Vega DO Work Phone: Start: 01-11-2022 Hepatic function panel Ivy Chua MD Work Phone: Start: 01-11-2022 Lactate dehydrogenase ldh Abhinav De La Vega DO Work Phone: Start: 01-10-2022 End: 01-10-2022 Assay of magnesium Abhinav Arellano DO Work Phone: Start: 01-10-2022 Ecg routine ecg w/le ast 12 lds trcg only w/o i&r To Be Assigned Start: 01-10-2022 Dup-scan artl virgilio abdl/pel/scrot&/rpr orgn com Abhinav De La Vega DO Work Phone: Start: 01-10-2022 Clotting factor viii ahg 1 stage Abhinav De La Vega DO Work Phone: Start: 01-10-2022 Us abdominal real ti me w/image limited Salina Franks MD Work Phone: Start: 01-10-2022 Creatine kinase total F rocael Albert MD Work Phone: Start: 01-10-2022 Hepatic function panel Ivy Chua MD Work Phone: Start: 01-10-2022 Iadna nos amplified probe tq each organism Darion Blanchard DO Work Phone: Start: 01-10-2022 RED BLOOD CELL COMPONENT Salina Franks MD Work Phone: Start: 01-09-2022 End: 01-09-2022 Assay of copper Ivy Chua MD Work Phone: Start: 01-09-2022 Assay of ammonia Francisco Marino MD Work Phone: Start: 01-09-2022 Culture bacterial bl ood aerobic w/id isolates Ivy Chua MD Work Phone: Start: 01-09-2022 Radiologic exam abdo men 1 view Ivy Chua MD Work Phone: Start: 01-09-2022 RED BLOOD CELL COMPONENT Shayydarineeta Winston MD Work Phone: Start: 01-09-2022 Creatine [...] Iadna hepatitis c qu ant & reverse wood gluer Ivy Chua MD Work Phone: Start: 01-08-2022 [...] w/o i&r Darion Blanchard DO Work Phone: Incision AND drainage Heladio Lopez Jaw region structure (body structure) Aldair Thorpe Plan of Treatment Date Care Activity Detail Author Start: 2034 Varicella-zoster vaccine (product) [facility] Start: 01-08-2027 Lipid panel [facility] Start: 10-28-2023 ambulatory Ambulatory Facility:[facility] Start: 10-01-2023 End: 10-01-2023 Patient encounter procedure 10/01/2023 8:30 AM EST Appointment [facility] [address] [place] [id number] Tanvir Black MD [address] [place] [id number] [facility] Start: 07-27-2023 End: 07-27-2023 Patient encounter procedure 07/27/2023 10:00 AM EST Office Visit [facility] [address] [place] [id number] Marcello Ibanez MD [address] [place] [id number] [facility] Start: 07-20-2023 End: 07-20-2023 Patient encounter procedure [facility] Start: 06-07-2023 Influenza vaccination Influenza Vaccine (#1) [facility] Start: 05-16-2023 Fluid sample AFP level Alpha fetoprotein (AFP) tumo r marker [facility] Start: 05-08-2023 Influenza vaccination Influenza Vaccine (#1) [facility] Start: 04-21-2023 End: 04-21-2023 Patient encounter procedure [facility] Start: 03-20-2023 End: 03-20-2023 Patient encounter procedure [facility] Start: 03-03-2023 End: 03-03-2023 Telemedicine consultation with patient 03/03/2023 11:20 AM EDT Telemedicine [facility] [address] [place] [address] Nighat Mahmood, COMMERCIAL CRABBER-RN DOCUMENT IMPROVEMENT SPECIALIST [address], [place] [address] [facility] Start: 01-20-2023 End: 01-20-2023 Patient encounter procedure 01/20/2023 Appointment Radiology [facility] Start: 01-12-2023 End: 01-12-2023 Patient encounter procedure [facility] Start: 12-16-2022 End: 12-16-2022 Patient encounter procedure 12/16/2022 Office Visit Family Practice Dejuan Lechuga MD [address] [place] [address] [facility] Start: 12-15-2022 End: 12-15-2022 Telemedicine consultation with patient 12/15/2022 Telemedicine Family Practice Theo Burks MD [address] [place] [address] Arrived [facility] Comment on above: Arrived Start: 12-15-2022 End: 12-16-2023 XR Ribs - left Views and Chest PA XR RIBS LT UNILAT W/PA CHEST Imaging Routine Rib pain Expected: 12/15/2022, Expires: 12/16/[address] [facility]: Comment on above: Expected: 12/15/2022, Expires: Start: 11-13-2022 End: 11-13-2022 Patient encounter procedure [facility] Start: 10-27-2022 End: 10-27-2023 RF Guidance for transjugular biopsy of Liver-- W contrast IV [facility] Comment on above: Expected: 10/27/2022, Expires: Start: 10-27-2022 End: 10-27-2022 Patient encounter procedure 10/27/2022 Office Visit Gastroenterology Abbey Alvarez MD [address] [place] [address] [facility] Start: 09-22-2022 End: 09-22-2022 Admission to same day surgery center [facility] Comment on above: ESOPHAGOGASTRODUODENOSCOPY ESOPHAGOGASTRODUODEN OSCOPY, GENERAL ANESTHESIA Start: 09-22-2022 End: [...] Hospital Encounter Gastroenterology Claire Johnson MD [address] [facility] [place] [address] [facility] Start: 09-19-2022 End: 09-19-2022 Patient encounter procedure 09/19/2022 Office Visit Gastroenterology Maria C Faustin APRN-DAYAMI [address] [place] [address] [facility] [place] [facility] Start: 09-16-2022 End: 10-17-2022 SARS-CoV-2 (COVID-19) RNA [Presence] in Unspecified specimen by ANGIE with probe detection NOVEL CORONAVIRUS (COVID-19) Lab Routine Encounter for laboratory testing for severe acute respiratory syndrome coronavirus 2 (SARS-CoV-2) Expected: 09/16/2022, Expires: 10/17/2022 [employer] Work Phone: Comment on above: Expected: 09/16/2022, Expires: 3 Start: 09-15-2022 End: 10-16-2022 SARS-CoV-2 (COVID-19) RNA [Presence] in Unspecified specimen by ANGIE with probe detection NOVEL CORONAVIRUS (COVID-19) Lab Routine Encounter for laboratory testing for severe acute respiratory syndrome coronavirus 2 (SARS-CoV-2) Expected: 09/15/2022, Expires: 10/16/2022 [employer] Work Phone: Comment on above: Expected: 09/15/2022, Expires: 3 Start: 09-08-2022 End: 10-26-2022 Basic metabolic 2000 panel - Serum or Plasma BASIC METABOLIC PANEL Lab Routine Alcoholic hepatitis without ascites Alcoholic cirrhosis of liver without ascites (HCC) 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) Expected: 09/08/2022, Expires: 10/26/2022 [employer] Comment on above: Expected: 09/08/2022, Expires: 3 Start: 08-29-2022 End: 08-29-2022 Patient encounter procedure 08/29/2022 Office Visit Family Practice Theo Burks MD [address] [place] [address] [facility] Start: 08-28-2022 End: 08-28-2022 Telemedicine consultation with patient 08/28/2022 Telemedicine Gastroenterology Maria C Faustin APRN-DAYAMI [address] [place] [address] [facility] [place] [facility] Start: 08-27-2022 End: 09-12-2022 Assay of ferritin FERRITIN Lab Routine Alcoholic hepatitis without ascites Alcoholic cirrhosis of liver without ascites (HCC) 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) Expected: 08/27/2022, Expires: 09/12/2022 [facility] Comment on above: Expected: 08/27/2022, Expires: 3 Start: 08-27-2022 End: 09-12-2022 Assay of gammaglobulin iga igd igg igm each IMMUNOGLOBULIN G Lab Routine Alcoholic hepatitis without ascites Alcoholic cirrhosis of liver without ascites (HCC) 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) Expected: 08/27/2022, Expires: 09/12/2022 [facility] Comment on above: Expected: 08/27/2022, Expires: 3 Start: 08-27-2022 End: 09-12-2022 Assay of iron IRON AND TIBC Lab Routine Alcoholic hepatitis without ascites Alcoholic cirrhosis of liver without ascites (HCC) 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) Expected: 08/27/2022, Expires: 09/12/2022 [facility] Comment on above: Expected: 08/27/2022, Expires: 3 Start: 08-27-2022 End: 09-12-2022 Hfe hemochromatosis gene anal common variants HEMOCHROMATOSIS DNA TEST Lab Routine Alcoholic hepatitis without ascites Alcoholic cirrhosis of liver without ascites (HCC) 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) Expected: 08/27/2022, Expires: 09/12/2022 [facility] Comment on above: Expected: 08/27/2022, Expires: 3 Start: 08-27-2022 End: 09-12-2022 Smooth muscle antibody measurement SMOOTH MUSC ATB SCRN & TITR Lab Routine Alcoholic hepatitis without ascites Alcoholic cirrhosis of liver without ascites (HCC) 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) Expected: 08/27/2022, Expires: 09/12/2022 [facility] Comment on above: Expected: 08/27/2022, Expires: 3 Start: 08-27-2022 End: 09-12-2022 Unlisted chemistry procedure MISCELLANEOUS SEND OUT TE ST Lab Routine Alcoholic hepatitis without ascites Alcoholic cirrhosis of liver without ascites (HCC) 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) Expected: 08/27/2022, Expires: 09/12/2022 [employer] Work Phone: Comment on above: Expected: 08/27/2022, Expires: 3 Start: 08-25-2022 End: 09-12-2022 Prothrombin time PROTHROMBIN TIME AND INR Lab Lab Add-On Alcoholic cirrhosis of liver without ascites (HCC) Expected: 08/25/2022, Expires: 09/12/2022 [employer] Work Phone: Comment on above: Expected: 08/25/2022, Expires: 3 Start: 08-25-2022 End: 08-25-2022 Patient encounter procedure [facility] Comment on above: Arrived Start: 08-19-2022 End: 08-19-2022 Professional / ancillary services management 08/19/2022 Ancillary Procedure [facility] [place] [facility] Start: 08-19-2022 End: 08-19-2022 Professional / ancillary services management 08/19/2022 Ancillary Procedure [facility] [facility] Start: 08-14-2022 End: 08-14-2023 US Abdomen RUQ US LIVER/GALL BLADDER/PANCREAS Imaging Routine Iron deficiency anemia, unspecified iron deficiency anemia type Alcoholic cirrhosis, unspecified whether ascites present (HCC) Expected: 08/14/2022, Expires: 08/14/2023 [employer] Work Phone: Comment on above: Expected: 08/14/2022, Expires: 3 Start: 08-14-2022 End: 08-14-2023 US.doppler Portal vein and Hepatic vein US HEP PORT SPLEN VEIN + DOPPLER Imaging Routine Iron deficiency anemia, unspecified iron deficiency anemia type Alcoholic cirrhosis, unspecified whether ascites present (HCC) Expected: 08/14/2022, Expires: 08/14/2023 [facility] Comment on above: Expected: 08/14/2022, Expires: 3 Start: 08-14-2022 End: 08-14-2022 Patient encounter procedure [facility] Start: 07-11-2022 Hepatocellular Carcinoma Screening Hepatocellular Carcinoma Screening [facility] Start: 07-11-2022 [facility] Start: 06-07-2022 Influenza vaccination Influenza Vaccine (#1) [facility] Start: 05-06-2022 Subsequent hospital visit by physician 05/06/2022 Hospital Encounter Oncology Medical Tanvir Black MD [address] [place] [address] Subj: Appointment Reminder [facility] Comment on above: Subj: Appointment Reminder Start: 05-06-2022 End: 05-06-2022 Patient encounter procedure [facility] Non Invasive Cardiology Start: 04-07-2022 Influenza vaccination Influenza Vaccine (#1) [facility] Start: 03-13-2022 End: 03-13-2022 Patient encounter procedure 03/13/2022 Appointment Oncology Medical [facility] Start: 03-13-2022 End: 03-13-2022 Patient encounter procedure 03/13/2022 Appointment Oncology Medical Tanvir Black MD [address] [place] [address] [facility] Start: 02-11-2022 End: 02-11-2022 ambulatory [facility] Start: 02-11-2022 End: 02-11-2022 Patient encounter procedure 02/11/2022 Appointment Oncology Medical Tanvir Black MD [address] [place] [address] [facility] Start: 01-23-2022 End: 01-23-2022 ambulatory [facility] Start: 01-23-2022 End: 01-23-2022 Patient encounter procedure 01/23/2022 Office Visit Orthopedics Ronen Welch MD [address] [place] [address] [facility] Start: 01-20-2022 End: 01-20-2022 ambulatory [facility] Start: 02-05-2021 COVID-19 Vaccine (2 - Moderna risk series) COVID-19 Vaccine (2 - Moderna risk series) [facility] Start: 06-01-2021 COVID-19 Vaccine (3 - Moderna risk series) COVID-19 Vaccine (3 - Moderna risk series) [facility] Start: 2011 HPV Vaccine (optional start 27-45 years) HPV Vaccine (optional start 27-45 years) [facility] Start: 2003 Shingles (RZV) Vaccine (1 of 2) Shingles (RZV) Vaccine (1 of 2) [facility] Start: 2002 Tetanus + diphtheria + acellular pertussis vaccine (product) [facility] Start: 1990 Pneumococcal vaccination [facility] Start: 1990 [facility] Start: 1989 COVID-19 Vaccine (#1) COVID-19 Vaccine (#1) [facility] Start: 1989 COVID-19 Vaccine (1) COVID-19 Vaccine (1) [facility] Start: 1989 [facility] Start: 03-18-1985 COVID-19 Vaccine (#1) COVID-19 Vaccine (#1) [facility] End: 08-14-2023 Alpha-fetoprotein serum ALPHA FETOPROTEIN TUMOR MARKER Lab Routine Iron deficiency anemia, unspecified iron deficiency anemia type Alcoholic cirrhosis, unspecified whether ascites present (HCC) 1 Occurrences starting 08/14/2022 until 08/14/2023 [facility] Comment on above: 1 Occurrences starting 08/14/2022 until 08/14/2023 End: 03-13-2023 Assay of blood/uric acid URIC ACID Lab STAT 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 for 12 Occurrences starting 03/13/2022 until 03/13/2023, 1 completed [facility] Comment on above: monthly for 12 Occurrences starting 03/2022 until 03/13/2023, 1 completed Assay of gammaglobul in iga igd igg igm each IMMUNOGLOBULIN G Lab Routine Alcoholic hepatitis without ascites Alcoholic cirrhosis of liver without ascites (HCC) 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) 08/25/2022 12:41 PM EST [facility] Assay of haptoglobin quantitative [facility] Work Phone: End: 03-13-2023 Assay of haptoglobin quantitative HAPTOGLOBIN Lab STAT 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) every month for 12 Occurrences starting 03/13/2022 until 03/13/2023, 1 completed [facility] Comment on above: every month for 12 Occurrences starting 03/13/2022 until 03/13/2023, 1 completed End: 11-13-2023 Assay of haptoglobin quantitative HAPTOGLOBIN Lab STAT 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) 6 Occurrences starting 11/12/2022 until 11/13/2023, 1 completed [facility] Comment on above: 6 Occurrences starting 11/12/2022 until 11/13/2023, 1 completed Bacteria identified in Urine by Culture URINE CULTURE Microbiology Routine Dysuria 08/14/2022 12:17 PM EST [employer] Work Phone: Basic metabolic 2000 panel - Serum or Plasma [facility] End: 03-13-2023 Basic metabolic 2000 panel - Serum or Plasma BASIC METABOLIC PANEL Lab STAT 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 for 12 Occurrences starting 03/13/2022 until 03/13/2023, 1 completed [facility] Comment on above: monthly for 12 Occurrences starting 03/2022 until 03/13/2023, 1 completed End: 08-14-2023 Basic metabolic 2000 panel - Serum or Plasma BASIC METABOLIC PANEL Lab Routine Iron deficiency anemia, unspecified iron deficiency anemia type Alcoholic cirrhosis, unspecified whether ascites present (HCC) 1 Occurrences starting 08/14/2022 until 08/14/2023 [facility] Comment on above: 1 Occurrences starting 08/14/2022 until 08/14/2023 Basic metabolic 2000 panel - Serum or Plasma BASIC METABOLIC PANEL Lab Routine Nausea Ordered: 10/27/2022 [facility] Comment on above: Ordered: 10/27/2022 End: 11-13-2023 Basic metabolic 2000 panel - Serum or Plasma BASIC METABOLIC PANEL Lab STAT 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) 6 Occurrences starting 11/12/2022 until 11/13/2023, 1 completed [facility] Comment on above: 6 Occurrences starting 11/12/2022 until 11/13/2023, 1 completed End: 11-13-2023 Blood count reticulocyte automated RETICULOCYTE COUNT Lab STAT 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) 6 Occurrences starting 11/12/2022 until 11/13/2023, 1 completed [facility] Comment on above: 6 Occurrences starting 11/12/2022 until 11/13/2023, 1 completed CBC panel - Blood by Automated count [facility] End: 08-14-2023 CBC panel - Blood by Automated count COMPLETE BLOOD COUNT Lab Routine Iron deficiency anemia, unspecified iron deficiency anemia type Alcoholic cirrhosis, unspecified whether ascites present (HCC) 1 Occurrences starting 08/14/2022 until 08/14/2023 [facility] Comment on above: 1 Occurrences starting 08/14/2022 until 08/14/2023 CBC panel - Blood by Automated count COMPLETE BLOOD COUNT Lab Routine Nausea Ordered: 10/27/2022 [facility] Comment on above: Ordered: 10/27/2022 End: 03-13-2023 CBC W Auto Differential panel - Blood COMPLETE BLOOD COUNT W/DIFF Lab STAT 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 for 12 Occurrences starting 03/13/2022 until 03/13/2023, 1 completed [employer] Work Phone: Comment on above: monthly for 12 Occurrences starting 03/2022 until 03/13/2023, 1 completed End: 11-13-2023 CBC W Auto Differential panel - Blood COMPLETE BLOOD COUNT W/DIFF Lab STAT 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) 6 Occurrences starting 11/12/2022 until 11/13/2023, 1 completed [employer] Work Phone: Comment on above: 6 Occurrences starting 11/12/2022 until 11/13/2023, 1 completed Creatine kinase total CREATINE K INASE Lab Routine Muscle soreness Ordered: 08/29/2022 [employer] Work Phone: Comment on above: Ordered: 08/29/2022 ESOPHAGOGASTRODUODEN OSCOPY, GENERAL ANESTHESIA [facility] Hepatic function panel [employer] Work Phone: End: 03-13-2023 Hepatic function panel HEPATIC FUNCTION PANEL Lab STAT 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 for 12 Occurrences starting 03/13/2022 until 03/13/2023, 1 completed [employer] Comment on above: monthly for 12 Occurrences starting 03/2022 until 03/13/2023, 1 completed End: 08-14-2023 Hepatic function panel HEPATIC FUNCTION PANEL Lab Routine Iron deficiency anemia, unspecified iron deficiency anemia type Alcoholic cirrhosis, unspecified whether ascites present (HCC) 1 Occurrences starting 08/14/2022 until 08/14/2023 [facility] Comment on above: 1 Occurrences starting 08/14/2022 until 08/14/2023 Hepatic function panel HEPATIC F UNCTION PANEL Lab Routine Nausea Ordered: 10/27/2022 [facility] Comment on above: Ordered: 10/27/2022 End: 11-13-2023 Hepatic function panel HEPATIC FUNCTION PANEL Lab STAT 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) 6 Occurrences starting 11/12/2022 until 11/13/2023, 1 completed [facility] Comment on above: 6 Occurrences starting 11/12/2022 until 11/13/2023, 1 completed Hfe hemochromatosis gene anal common variants HEMOCHROMATOSIS DNA TEST Lab Routine Alcoholic hepatitis without ascites Alcoholic cirrhosis of liver without ascites (HCC) 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) 08/25/2022 12:41 PM EST [facility] Hfe hemochromatosis gene anal common variants HEMOCHROMATOSIS DNA TEST Lab Routine Increased storage iron 11/13/2022 11:58 AM EST [facility] Lactate dehydrogenase ldh [facility] End: 03-13-2023 Lactate dehydrogenase ldh LDH Lab STAT Hemolytic anemi a due to warm antibody (HCC) monthly for 12 Occurrences starting 03/13/2022 until 03/13/2023, 1 completed [facility] Comment on above: monthly for 12 Occurrences starting 03/2022 until 03/13/2023, 1 completed End: 11-13-2023 Lactate dehydrogenase ldh LDH Lab STAT Hemolytic anemi a due to warm antibody (HCC) 6 Occurrences starting 11/12/2022 until 11/13/2023, 1 completed [facility] Comment on above: 6 Occurrences starting 11/12/2022 until 11/13/2023, 1 completed Prothrombin time [facility] End: 08-14-2023 Prothrombin time PROTHROMBIN TIME AND INR Lab Routine Iron deficiency anemia, unspecified iron deficiency anemia type Alcoholic cirrhosis, unspecified whether ascites present (HCC) 1 Occurrences starting 08/14/2022 until 08/14/2023 [facility] Comment on above: 1 Occurrences starting 08/14/2022 until 08/14/2023 Prothrombin time PROTHROMBIN IVAN E AND INR Lab Routine Nausea Ordered: 10/27/2022 [employer] Work Phone: Comment on above: Ordered: 10/27/2022 Smooth muscle antibo dy measurement SMOOTH MUSC ATB SCRN & TITR Lab Routine Alcoholic hepatitis without ascites Alcoholic cirrhosis of liver without ascites (HCC) 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) 08/25/2022 12:41 PM [facility] Unlisted chemistry procedure MIS CELLANEOUS SEND OUT TEST Lab Routine Alcoholic hepatitis without ascites Alcoholic cirrhosis of liver without ascites (HCC) 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) 08/25/2022 12:41 PM EST [facility] Immunizations Immunization Date Immunization Notes Care Provider Fa jeffdaniel 10-27-2022 hepatitis B vaccine, unspecified formulation Marcello Ibanez MD Work Phone: [facility] 08-14-2022 hepatitis B vaccine, adult dosage Maria C Gricelda SILVESTRE Work Phone: [facility] 01-08-2021 Moderna Monovalent (12+ yrs) COVID-19 vaccine, mRNA, spike protein, LNP, PF, 100 mcg/0.5 mL (PYK=761) Marcello Ibanez MD Work Phone: [facility] 12-11-2020 Moderna Monovalent (12+ yrs) COVID-19 vaccine, mRNA, spike protein, LNP, PF, 100 mcg/0.5 mL (AJT=156) Marcello Ibanez MD Work Phone: [facility] NEGATED: Highlighted row has not occurred!08-26-2023 influenza virus vaccine, unspecified formulation Lisa Lopez [facility] Payers Date Payer Category Payer Unknown [id number] 2021 Unknown [id number] 2. [id number] 1984 Unknown [id number] 2.16. 840.1.004061.3.579.2.732 1984 Unknown [id number] 2.16. 840.1.946460.3.579.2. 1984 Unknown [id number] 2.16. 840.1.534546.3.579.2. 1984 Unknown [id number] 2.16. 840.1.747383.3.579.2 1984 Unknown [id number] 2.16. 840.1.211275.3.579.2 1984 Unknown [id number] 2.16. 840.1.929341.3.579.2 1984 Unknown [id number] 2.16. 840.1.443330.3.579.2 1984 Unknown [id number] 2.16. 840.1.582722.3.579.2 1984 Unknown [id number] 2.16. 840.1.076253.3.579.2 1984 Unknown [id number] 2.16. 840.1.040406.3.579.2 1984 Unknown [id number] 2.16. 840.1.734377.3.579.2 1984 Unknown [id number] 2.16. 840.1.565141.3.579.2 1984 Unknown [id number] 2.16. 840.1.544287.3.579.2 1984 Unknown [id number] 2.16. 840.1.222046.3.579.2 1984 Unknown [id number] 2.16. 840.1.913079.3.579.2 1984 Unknown [id number] 2.16. 840.1.703489.3.579.2 1984 Unknown [id number] 2.16. 840.1.262820.3.579.2 1984 Unknown [id number] 2.16. 840.1.130045.3.579.2.2 1984 Unknown [id number] 2.16. 840.1.679984.3.579.2. 1984 Unknown [id number] 2.16. 840.1.542760.3.579.2. 1984 Unknown [id number] 2.16. 840.1.586790.3.579.2. 1984 Unknown [id number] 2.16. 840.1.815707.3.579.2. 1984 Unknown [id number] 2.16. 840.1.526237.3.579.2. 1984 Unknown [id number] 2.16. 840.1.300764.3.579.2 1984 Unknown [id number] 2.16. 840.1.996612.3.579.2 1984 Unknown [id number] 2.16.8 40.1.766922.3.579.2 1984 Unknown [id number] 2.16.8 40.1.134460.3.579.2 1984 Unknown [id number] 2.16.8 40.1.324363.3.579.2 1984 Unknown [id number] 2.16.8 40.1.685178.3.579.2 1984 Unknown [id number] 2.16.8 40.1.884179.3.579.2 1984 Unknown [id number] 2.16.8 40.1.373061.3.579.2 1984 Unknown [id number] 2.16.8 40.1.897871.3.579.2. 1984 Unknown [id number] 2.16.8 40.1.867705.3.579.2 1984 Unknown [id number] 2.16.8 40.1.995152.3.579.2 1984 Unknown [id number] 2.16.8 40.1.043070.3.579.2 1984 Unknown [id number] 2.16.8 40.1.777793.3.579.2 1984 Unknown [id number] 2.16.8 40.1.348700.3.579.2 1984 Unknown [id number] 2.16.8 40.1.992313.3.579.2 1984 Unknown [id number] 2.16.8 40.1.006619.3.579.2 1984 Unknown [id number] 2.16.8 40.1.418264.3.579.2 1984 Unknown [id number] 2.16.8 40.1.410659.3.579.2 1984 Unknown [id number] 2.16.8 40.1.946538.3.579.2 1984 Unknown [id number] 2.16.8 40.1.035338.3.579.2 1984 Unknown [id number] 2.16.8 40.1.467952.3.579.2 1984 Unknown [id number] 2.16.8 40.1.911447.3.579.2 1984 Unknown [id number] 2.16.8 40.1.777315.3.579.2 1984 Unknown [id number] 2.16.8 40.1.542931.3.579.2 1984 Unknown [id number] 2.16.8 40.1.477000.3.579.2 1984 Unknown [id number] 2.16.8 40.1.383998.3.579.2.727 1984 Unknown [id number] 2.16.8 40.1.806307.3.579.2.727 1984 Unknown [id number] 2.16.8 40.1.459196.3.579.2.727 1984 Unknown [id number] 2.16.8 40.1.569214.3.579.2.727 1984 Unknown [id number] 2.16.8 40.1.073924.3.579.2.727 Social History Date Type Detail Facility Tobacco Tobacco smoking consumption unknown [facility] Comment on above: daily chew pt denies Sex Assigned At Male [facility] Start: [facility] stat [facility] Tobacco smoking consumption unknown [facility] Start: 08-14-2022 End: 09-01-2023 Tobacco smoking status AZIS Ex-smoker [facility] Comment on above: quit cigarettes 8 ye ken carey, quit 9 years ago History of tobacco use Current smoker [facility] History of tobacco use [facility]arette [facility] Start: 08-14-2022 Tobacco use and exposure User of smokeless tobacco [facility] History of tobacco use [facility] Start: 08-05-2022 End: 12-16-2022 Exposure to SARS-CoV-2 (event) Not sure [facility] Start: 08-19-2022 End: 08-29-2022 Exposure to SARS-CoV-2 (event) Unable to assess [facility] Work Phone: Tobacco smoking status No Smokin g Status Entered [facility] Tobacco smoking status Smokeless tobacco user within last 30 days [facility] Comment on above: quit [...] glucose, Buccal, PRN, Starting on Thu01/17/22 at 14, Until Discontinued, blood glucose between 50 - 69 mg/dL, and with no IV access, alert and able to swallow. [Order 3 End] [Order 4 Start] Name: dextrose (GLUTOSE) 40 % gel Signed Summary: 30 g of glucose, Buccal, PRN, Starting on Thu01/17/22 at 14, Until Discontinued, blood glucose of 49mg/dL or less, and with no IV access, alert and able to swallow. [Order 4 End] [id number] Start: 01-17-2022 Functional Status Date Assessment Result Facility 09-01-2023 Functional Status N/A [facility] 08-26-2023 Functional Status N/A [facility] 07-24-2023 Functional Status N/A [facility] 06-19-2023 Functional Status N/A [facility] 03-22-2023 Functional Status N/A [facility] 02-18-2023 Functional Status N/A [facility] 02-17-2022 Functional Status N/A [facility] Clinical Notes 01-07-2022 to 08-26-2023 Note Date & Type Note Facility 08-26-2023 Hospital Discharg e instructions Patient Education 08/26/2023 11:03:02 Hypokalemia Hypokalemia Hypokalemia means that the amount [...] products, such as yogurt. General instructions Take fjdv-yun-ifdjwzd and prescription medicines only as told by [...] provider. Document Revised: 05/08/2022 Document Reviewed: 05/08/2022 [employer] 20[employer] [facility]. 08/26/2023 11:03:00 Stasis Dermatitis Stasis Dermatitis Stasis dermatitis is a long-term (chronic) skin condition that happens when veins can no longer pump blood back to the heart (poor circulation). This condition causes a red or brown scaly rash or sores (ulcers) from the pooling of blood (stasis). This condition usually affects the lower legs. It may affect one leg or both legs. Without treatment, severe stasis dermatitis can lead to other skin conditions and infections. What are the causes? This condition is caused by poor circulation. What increases the risk? You are more likely to develop this condition if: You are not very active. You stand for long periods of time. You have veins that have become enlarged and twisted (varicose veins). You have leg veins that are not strong enough to send blood back to the heart (venous insufficiency). You have had a blood clot. You have been many times. You have had vein surgery. You are obese. You have heart or kidney failure. You are 50 years of age or older. You have had injuries to your legs in the past. What are the signs or symptoms? Common early symptoms of this condition include: Itchiness in one or both of your legs. Swelling in your ankle or leg. This might get better overnight but be worse again during the day. Skin that looks thin on your ankle and leg. Red or brown harris that develop slowly. Skin that is dry, cracked, or easily irritated. Red, swollen skin that is sore or has a burning feeling. An achy or heavy feeling after you walk or stand for long periods of time. Pain. Later and more severe symptoms of this condition include: Skin that looks shiny. Small, open sores (ulcers). These are often red or purple and leak fluid. Skin that feels hard. Severe itching. A change in the shape or color of your lower legs. Severe pain. Difficulty walking. How is this diagnosed? This condition may be diagnosed based on: Your symptoms and medical history. A physical exam. You may also have tests, including: Blood tests. Imaging tests to check blood flow (Doppler ultrasound). Allergy tests. You may need to see a health care provider who specializes in skin diseases (hand ii cutter). How is this treated? This condition may be treated with: Compression stockings or an elastic wrap to improve circulation. Medicines, such as: ?Corticosteroid creams and ointments. ?Non-corticosteroid medicines applied to the skin (topical). ?Medicine to reduce swelling in the legs (diuretics). ?Antibiotics. ?Medicine to relieve itching (antihistamines). A bandage (dressing). A wrap that contains zinc and gelatin (Unna boot). Follow these instructions at home: Skin care Moisturize your skin as told by your health care provider. Do not use moisturizers with fragrance. This can irritate your skin. Apply a cool, wet cloth (cool compress) to the affected areas. Do not scratch your skin. Do not rub your skin dry after a bath or shower. Gently pat your skin dry. Do not use scented soaps, detergents, or perfumes. Medicines Take or use buiw-wfc-svrftpo and prescription medicines only as told by your health care provider. If you were prescribed an antibiotic medicine, take or use it as told by your health care provider. Do not stop taking or using the antibiotic even if your condition improves. Activity Walk as told by your health care provider. Walking increases blood flow. Do calf and ankle exercises throughout the day as told by your health care provider. This will help increase blood flow. Raise (elevate) your legs above the level of your heart when you are sitting or lying down. Lifestyle Work with your health care provider to lose weight, if needed. Do not cross your legs when you sit. Do not stand or sit in one position for long periods of time. Wear comfortable, loose-fitting clothing. Circulation in your legs will be worse if you wear tight pants, belts, and waistbands. Do not use any products that contain nicotine or tobacco, such as cigarettes, e-cigarettes, and chewing tobacco. If you need help quitting, ask your health care provider. General instructions If you were asked to use one of the following to help with your condition, follow instructions from your health care provider on how to: ?Remove and change any dressing. ?Wear compression stockings. These stockings help to prevent blood clots and reduce swelling in your legs. ?Wear the Unna boot. Keep all follow-up visits as told by your health care provider. This is important. Contact a health care provider if: Your condition does not improve with treatment. Your condition gets worse. You have signs of infection in the affected area. Watch for: ?Swelling. ?Tenderness. ?Redness. ?Soreness. ?Warmth. You have a fever. Get help right away if: You notice red streaks coming from the affected area. Your bone or joint underneath the affected area becomes painful after the skin has healed. The affected area turns darker. You feel a deep pain in your leg or groin. You are short of breath. Summary Stasis dermatitis is a long-term (chronic) skin condition that happens when veins can no longer pump blood back to the heart (poor circulation). Wear compression stockings as told by your health care provider. These stockings help to prevent blood clots and reduce swelling in your legs. Follow instructions from your health care provider about activity, medicines, and lifestyle. Contact a health care provider if you have a fever or have signs of infection in the affected area. Keep all follow-up visits as told by your health care provider. This is important. This information is not intended to replace advice given to you by your health care provider. Make sure you discuss any questions you have with your health care provider. Document Revised: 11/04/2021 Document Reviewed: 11/04/2021 [employer] Patient Education 2022 [employer] [facility] 08/26/2023 11:02:52 Alcoholic Liver Disease Alcoholic Liver Disease Alcoholic liver disease refers to liver damage that is caused by drinking a lot of alcohol over a long period of time. The liver is an organ that: Helps to divide (break down) and absorb fats and other nutrients in the blood. Helps to remove harmful substances from the blood. Makes the parts of the blood that help to form clots and prevent excessive bleeding. Damage may cause the liver to stop working properly. There are three main types of alcoholic liver disease, and they usually occur in the following order: 1.Fatty liver disease. This is considered the early stage of alcoholic liver disease. It is a condition in which too much fat has built up in the liver cells. In many cases, fatty liver disease does not cause any symptoms. It is often diagnosed when lab tests are done for other reasons. 2.Alcoholic hepatitis. This is liver inflammation that decreases the liver's ability to function normally. 3.Alcoholic cirrhosis. Cirrhosis is long-term (chronic) liver injury. Having cirrhosis means that many healthy liver cells have been replaced by scar tissue. This prevents blood from flowing through the liver, which makes it difficult for the liver to function. Symptoms of this condition usually get worse (progress) over time if alcohol use continues. Treatment requires stopping all alcohol intake. What are the causes? Alcoholic liver disease is caused by chronic heavy alcohol use. The liver filters alcohol out of the bloodstream. When alcohol gets broken down in the liver, it releases poisonous (toxic) chemicals that damage liver cells. What increases the risk? This condition is more likely to develop in: Women. People who are obese. People who have a family history of alcoholic liver disease. People who regularly drink large amounts of alcohol in a short amount of time (binge drink). People who have an underlying liver disease such as hepatitis B or hepatitis C. People with poor nutrition or who lack certain nutrients, such as folate or thiamine (have nutrient deficiencies). What are the signs or symptoms? Most people do not have symptoms in the early stages of this disease. If early symptoms do develop, they may include: Loss of appetite. Nausea and vomiting. Symptoms of moderate disease include: Diarrhea. Fever. Feeling tired (fatigue). Weight loss without trying. Yellowing of the skin and the whites of the eyes (jaundice). Pain and swelling in the abdomen. Symptoms of advanced disease include: Weight loss and muscle loss. Itchy skin. Buildup of fluid in the abdomen (ascites). Swelling of the feet and ankles (edema). Nosebleeds or bleeding gums. Trouble concentrating. Mood changes or agitation. Confusion. Some people do not have symptoms until the condition becomes advanced. Symptoms often get worse right after a period of heavy drinking. How is this diagnosed? This condition may be diagnosed based on: A physical exam. Blood tests. Tests that create detailed images of the body. These may include: ?Liver ultrasound. ?CT scan. ?MRI. A liver biopsy. For this test, a small sample of liver tissue is removed and checked for signs of damage. How is this treated? The most important part of treatment is to stop drinking alcohol. If you are addicted to alcohol, your health care provider will help you make a plan to quit. This plan may involve: Taking medicine to decrease unpleasant symptoms that are caused by stopping or decreasing alcohol use (withdrawal symptoms). Entering a treatment program to help you stop drinking. Joining a support group. Treatment for alcoholic liver disease may also include: Nutritional therapy. Your health care provider or a dietitian may recommend: ?Eating a healthy diet. ?Taking vitamins. ?Eating foods that contain a lot of zinc or B vitamins such as folate, thiamine, or pyridoxine. Steroid medicines to reduce liver inflammation. These may be recommended if your disease is advanced. Receiving a donated liver (liver transplant). This is only done in very severe cases and only for people who have completely stopped drinking and can commit to never drinking alcohol again. Follow these instructions at home: Do not drink alcohol. Follow your treatment plan, and work with your health care provider as needed. Consider joining an alcohol support group. These groups can provide emotional support and guidance. Take tzct-exj-vequecl and prescription medicines only as told by your health care provider. These include vitamins and supplements. Do not use medicines or eat foods that contain alcohol unless told by your health care provider. Follow instructions from your health care provider or dietitian about eating a healthy diet. Keep all follow-up visits. This is important. Where to find support Alcoholics Anonymous: aa.org Contact a health care provider if: You develop a fever or chills. Your skin color becomes more yellow, pale, or dark. You develop headaches. Get help right away if: You vomit blood. You have black, tarry stools, or bright red blood in your stool. You have trouble: ?Thinking. ?Walking. ?Balancing. ?Breathing. These symptoms may represent a serious problem that is an emergency. Do not wait to see if the symptoms will go away. Get medical help right away. Call your local emergency services (911 in the [place] Do not drive yourself to the hospital. Summary Alcoholic liver disease refers to liver damage that is caused by drinking a lot of alcohol over a long period of time. Symptoms of this condition get worse (progress) over time if alcohol use continues. Your health care provider will do a physical exam and tests to diagnose your condition. The most important part of treatment is to stop drinking alcohol. Follow your treatment plan, and work with your health care provider as needed. This information is not intended to replace advice given to you by your health care provider. Make sure you discuss any questions you have with your health care provider. Document Revised: 06/06/2021 Document Reviewed: 06/06/2021 [employer] Patient Education 2022 [employer]. 08/26/2023 10:41:25 Incision and Drainage Incision and Drainage Incision and drainage is a surgical procedure to open and drain a fluid-filled sac. The sac may be filled with pus, mucus, or blood. Examples of fluid-filled sacs that may need surgical drainage include cysts, skin infections (abscesses), and red lumps that develop from a ruptured cyst or a small abscess (boils). You may need this procedure if the affected area is large, painful, infected, or not healing well. Tell a health care provider about: Any allergies you have. All medicines you are taking, including vitamins, herbs, eye drops, creams, and ciry-mig-nraorou medicines. Any problems you or family members have had with anesthetic medicines. Any blood disorders you have or have had. Any surgeries you have had. Any medical conditions you have or have had. Whether you are or may be . What are the risks? Generally, this is a safe procedure. However, problems may occur, including: Infection. Bleeding. Allergic reactions to medicines. Scarring. The cyst or abscess returns. Damage to nerves or vessels. What happens before the procedure? Medicine Ask your health care provider about: Changing or stopping your regular medicines. This is especially important if you are taking diabetes medicines or blood thinners. Taking medicines such as aspirin and ibuprofen. These medicines can thin your blood. Do not take these medicines unless your health care provider tells you to take them. Taking ezqx-fqk-exjexwq medicines, vitamins, herbs, and supplements. Tests You may have an exam or testing. These may include: Ultrasound or other imaging tests to see how large or deep the fluid-filled sac is. Blood tests to check for infection. General instructions Follow instructions from your health care provider about eating or drinking restrictions. Plan to have someone take you home from the hospital or clinic. Ask your health care provider whether a responsible adult should care for you for at least 24 hours after you leave the hospital or clinic. This is important. You may get a tetanus shot. Ask your health care provider: ?How your surgery site will be marked or identified. ?What steps will be taken to help prevent infection. These may include: ?Removing hair at the surgery site. ?Washing skin with a germ-killing soap. ?Receiving antibiotic medicine. What happens during the procedure? An IV may be inserted into one of your veins. You will be given one or more of the following: ?A medicine to help you relax (sedative). ?A medicine to numb the area (local anesthetic). ?A medicine to make you fall asleep (general anesthetic). An incision will be made in the top of the fluid-filled sac. Pus, blood, and mucus will be squeezed out, and a syringe or tube (drain) may be used to empty more fluid from the sac. Your health care provider will do one of the following. He or she may: ?Leave the drain in place for several weeks to drain more fluid. ?Stitch open the edges of the incision to make a long-term opening for drainage (marsupialization). The inside of the sac may be washed out (irrigated) with a sterile solution and packed with gauze before it is covered with a bandage (dressing). Your health care provider may do a culture test of the drainage fluid. The procedure may vary among health care providers and hospitals. What happens after the procedure? Your blood pressure, heart rate, breathing rate, and blood oxygen level will be monitored often until you leave the hospital or clinic. Do not drive for 24 hours if you were given a sedative during your procedure. Summary Incision and drainage is a surgical procedure to open and drain a fluid-filled sac. The sac may be filled with pus, mucus, or blood. Before the procedure, you may be given antibiotic medicine to treat or help prevent infection. During the procedure, an incision will be made in the top of the fluid-filled sac. Pus, blood, and mucus is squeezed out, and a syringe or tube (drain) may be used to empty more fluid from the sac. The inside of the sac may be washed out (irrigated) with a sterile solution and packed with gauze before it is covered with a bandage (dressing). This information is not intended to replace advice given to you by your health care provider. Make sure you discuss any questions you have with your health care provider. Document Revised: 11/27/2022 Document Reviewed: 06/05/2022 [employer] Patient Education 2022 [employer]. 08/26/2023 10:41:21 Stasis Dermatitis Stasis Dermatitis Stasis dermatitis is a long-term (chronic) skin condition that happens when veins can no longer pump blood back to the heart (poor circulation). This condition causes a red or brown scaly rash or sores (ulcers) from the pooling of blood (stasis). This condition usually affects the lower legs. It may affect one leg or both legs. Without treatment, severe stasis dermatitis can lead to other skin conditions and infections. What are the causes? This condition is caused by poor circulation. What increases the risk? You are more likely to develop this condition if: You are not very active. You stand for long periods of time. You have veins that have become enlarged and twisted (varicose veins). You have leg veins that are not strong enough to send blood back to the heart (venous insufficiency). You have had a blood clot. You have been many times. You have had vein surgery. You are obese. You have heart or kidney failure. You are 50 years of age or older. You have had injuries to your legs in the past. What are the signs or symptoms? Common early symptoms of this condition include: Itchiness in one or both of your legs. Swelling in your ankle or leg. This might get better overnight but be worse again during the day. Skin that looks thin on your ankle and leg. Red or brown harris that develop slowly. Skin that is dry, cracked, or easily irritated. Red, swollen skin that is sore or has a burning feeling. An achy or heavy feeling after you walk or stand for long periods of time. Pain. Later and more severe symptoms of this condition include: Skin that looks shiny. Small, open sores (ulcers). These are often red or purple and leak fluid. Skin that feels hard. Severe itching. A change in the shape or color of your lower legs. Severe pain. Difficulty walking. How is this diagnosed? This condition may be diagnosed based on: Your symptoms and medical history. A physical exam. You may also have tests, including: Blood tests. Imaging tests to check blood flow (Doppler ultrasound). Allergy tests. You may need to see a health care provider who specializes in skin diseases (hand ii cutter). How is this treated? This condition may be treated with: Compression stockings or an elastic wrap to improve circulation. Medicines, such as: ?Corticosteroid creams and ointments. ?Non-corticosteroid medicines applied to the skin (topical). ?Medicine to reduce swelling in the legs (diuretics). ?Antibiotics. ?Medicine to relieve itching (antihistamines). A bandage (dressing). A wrap that contains zinc and gelatin (Unna boot). Follow these instructions at home: Skin care Moisturize your skin as told by your health care provider. Do not use moisturizers with fragrance. This can irritate your skin. Apply a cool, wet cloth (cool compress) to the affected areas. Do not scratch your skin. Do not rub your skin dry after a bath or shower. Gently pat your skin dry. Do not use scented soaps, detergents, or perfumes. Medicines Take or use vvja-wtl-okleyyu and prescription medicines only as told by your health care provider. If you were prescribed an antibiotic medicine, take or use it as told by your health care provider. Do not stop taking or using the antibiotic even if your condition improves. Activity Walk as told by your health care provider. Walking increases blood flow. Do calf and ankle exercises throughout the day as told by your health care provider. This will help increase blood flow. Raise (elevate) your legs above the level of your heart when you are sitting or lying down. Lifestyle Work with your health care provider to lose weight, if needed. Do not cross your legs when you sit. Do not stand or sit in one position for long periods of time. Wear comfortable, loose-fitting clothing. Circulation in your legs will be worse if you wear tight pants, belts, and waistbands. Do not use any products that contain nicotine or tobacco, such as cigarettes, e-cigarettes, and chewing tobacco. If you need help quitting, ask your health care provider. General instructions If you were asked to use one of the following to help with your condition, follow instructions from your health care provider on how to: ?Remove and change any dressing. ?Wear compression stockings. These stockings help to prevent blood clots and reduce swelling in your legs. ?Wear the Unna boot. Keep all follow-up visits as told by your health care provider. This is important. Contact a health care provider if: Your condition does not improve with treatment. Your condition gets worse. You have signs of infection in the affected area. Watch for: ?Swelling. ?Tenderness. ?Redness. ?Soreness. ?Warmth. You have a fever. Get help right away if: You notice red streaks coming from the affected area. Your bone or joint underneath the affected area becomes painful after the skin has healed. The affected area turns darker. You feel a deep pain in your leg or groin. You are short of breath. Summary Stasis dermatitis is a long-term (chronic) skin condition that happens when veins can no longer pump blood back to the heart (poor circulation). Wear compression stockings as told by your health care provider. These stockings help to prevent blood clots and reduce swelling in your legs. Follow instructions from your health care provider about activity, medicines, and lifestyle. Contact a health care provider if you have a fever or have signs of infection in the affected area. Keep all follow-up visits as told by your health care provider. This is important. This information is not intended to replace advice given to you by your health care provider. Make sure you discuss any questions you have with your health care provider. Document Revised: 11/04/2021 Document Reviewed: 11/04/2021 [employer] Patient Education 2022 [employer]. 08/26/2023 10:41:14 Hypokalemia Hypokalemia Hypokalemia means that the amount [...] products, such as yogurt. General instructions Take jthe-eqh-yfistzy and prescription medicines only as told by [...] provider. Document Revised: 05/08/2022 Document Reviewed: 05/08/2022 [employer] Patient Education 2022 [employer]. Follow Up Care 07/24/2023 09:02:18 With:Lsia Padilla FAM, [facility] Address: [address] [place], [place] [id number]- Business (1) When:Within 2 Month(s) Comments:3 mo f/u for ulcers, liver disease, labs [facility] 08-24-2023 Note [phone] [id number] [facility] 07-24-2023 Hospital Discharg e instructions Patient [...] provider before taking any new medicines, including rvow-wgk-mbqdmul medicines such as NSAIDs. Rest as needed. [...] provider. Document Revised: 06/06/2021 Document Reviewed: 06/06/2021 [employer] Patient Education 2022 [employer]. 07/24/2023 09:14:01 Heart Disease Prevention Heart Disease [...] of hard liquor (44 mL). Medicines Take mbjb-lgb-pajypkf and prescription medicines only as told by [...] Centers for Disease Control and Prevention: www.cdc.gov/heartdisease [place] [employer]: www.heart.org Summary Heart disease is [...] provider. Document Revised: 04/23/2022 Document Reviewed: 04/23/2022 [employer] Patient Education 2022 [employer]. 07/24/2023 09:13:57 Anemia Anemia Anemia is a [...] spleen. Follow these instructions at home: Take njgr-cfp-dfufozg and prescription medicines only as told by [...] provider. Document Revised: 07/08/2022 Document Reviewed: 07/31/2020 [employer] Patient Education 2022 [employer]. 07/24/2023 09:13:53 Hypokalemia Hypokalemia Hypokalemia means that [...] products, such as yogurt. General instructions Take ofqj-vir-snruxwi and prescription medicines only as told by [...] provider. Document Revised: 05/08/2022 Document Reviewed: 05/08/2022 [employer] Patient Education 2022 [employer]. 07/24/2023 09:13:45 Thrombocytopenia Thrombocytopenia Thrombocytopenia is a [...] Follow these instructions at home: Medicines Take nxgc-dcp-oyzejbm and prescription medicines only as told by [...] Document Reviewed: 02/06/2022 Else[employer] Patient Education 2022 [employer]. [facility] 06-19-2023 Hospital Discharg e instructions Patient Education 06/19/2023 13:28:07 Insect Bite, Adult, Jxcg-ud-Mgfk Insect Bite, Adult An insect bite can [...] of an anaphylactic reaction may include: Feeling telecommunications engineer the face (flushed). Your face may turn [...] a day. General instructions Apply or take vkjd-yde-lhyhdqo and prescription medicines only as told by [...] ?DEET. ?Picaridin. ?Oil of lemon eucalyptus (OLE). ?[id number]. Consider spraying your clothing with a pesticide [...] an anaphylactic reaction. Signs may include: ?Feeling telecommunications engineer the face. ?Itchy, red, swollen areas of [...] provider. Document Revised: 05/26/2022 Document Reviewed: 05/26/2022 [employer] Patient Education 2022 [employer]. Follow Up Care 06/19/2023 12:16:43 With:Colby Link Address: [address], [address] [facility] [place] [address]- Business (1) When:06/22/2023 12:39:51 Comments:Follow-up with your primary care provider in 3 to 5 days. If symptoms worsen, do not improve, or new symptoms arise please report back to emergency department for further evaluation. [facility] 04-24-2023 Evaluation note Encounter Date Diagnosis Assessment [...] sooner should he deteriorate in any way ZUCHEM Other 08-15-2023 History of Present illness Narrative* [...] well. Monie Hernandez RN documented in this [id number] History of Present illness Narrative* Gustabo Ritchie [...] 100 %. Gustabo Pittman documented in this [id number] NoteMicrobiology PROCEDURE: Blood Culture Charcoal [R1] SOURCE: Blood BODY SITE: Arm R COLLECTED DATE/TIME: 03/22/2023 20:30 EDT RECEIVED DATE/TIME: 03/22/2023 20:51 EDT START DATE/TIME: 03/22/2023 20:51 EDT FREE TEXT SOURCE: Peripheral vein site #1 Martin Reese DO. Mary Ann HURST, Martin S. FINAL REPORTS Final Report [] Verified Date/Time: 03/30/2023 07:00 EDT No growth at 7 days. Performing Locations R1: This test was performed at: [facility], [address] [place] [address], [id number] , , XktfgvPark[facility] Montpelier HospitalComment on above:Performed By: #### [id number] #### [facility] [address] [place] [address] [id number] NoteMicrobiology PROCEDURE: Blood Culture Charcoal [R1] SOURCE: Blood BODY SITE: Arm L COLLECTED DATE/TIME: 03/22/2023 20:41 EDT RECEIVED DATE/TIME: 03/22/2023 20:51 EDT START DATE/TIME: 03/22/2023 20:51 EDT FREE TEXT SOURCE: Peripheral vein site #2 Mary Ann DO, Martin S. Mary Ann DO, Martin S. FINAL REPORTS Final Report [] Verified Date/Time: 03/30/2023 07:00 EDT No growth at 7 days. Performing Locations R1: This test was performed at: [facility], [address] [place] [address], [id number] [place] [address], EcvzvsParkview Health Montpelier HospitalComment on above:Performed By: #### [id number] ####[facility] [address] [place], [place] [id number] Hospital Discharge instructions Patient Education 03/22/2023 21:57:13 [...] wounds on the skin, such as cuts, ameqzuita, bites, and scrapes. Bacteria can enter the [...] Follow these instructions at home: Medicines Take wgmu-bcc-ynpuiqk and prescription medicines only as told by [...] such as antibiotic medicines or antihistamines. Take ndjn-hoi-biqtqtz and prescription medicines only as told by [...] provider. Document Revised: 06/05/2022 Document Reviewed: 06/05/2022 [employer] Patient Education 2022 [employer]. Follow Up Care 03/22/2023 19:36:11 With:THEO BURKS Address:Unknown When:Within 3 Day(s) [facility]07-16-2023 Evaluation + Plan noteExtracted from: Title:ED Note Author:Martin Reese DO Date :03/22/23 Cellulitis (L03.90: Cellulit is, unspecified) Orders: ondansetron, 4 mg = 1 tab(s), Oral, q8hr, PRN Nausea/Vomiting, # 20 tab(s), Refills(s) 0, Pharmacy: [facility] #[id number], 170, cm, 03/22/23 20:14:00 EDT, Height/Length Dosing, [...] day(s), 28 tab(s), Refill(s) 0, [facility][id number], 170, cm, 03/22/23 20:14:00 EDT, Height/Length Dosing, [...] Date:03/30/2023 11:00:00 AM Scheduled Provider:Teddy Hitchcock MD [facility] Appointment Type:[facility] Follow Up Visit ([facility]) Diagnostic Tests Pending * Blood Culture Charcoal 03/22/23 * Blood Culture Charcoal 03/22/23 [facility]06-30-2023 Telephone encounter Note* Telephone Encounter - Deborah Gutierrez CPhT - 03/06/2023 8:55 AM EDT A prior authorization has been started for Lidocaine 5% patch PA status can be found under the prescription order in the Medication Tab. History or status of the PA can also be found in Chart Review under Referral tab. [id number] Miscellaneous Notes* Telephone Encounter - Deborah Gutierrez CPhT - 03/06/2023 8:55 AM EDT A prior authorization has been started for Lidocaine 5% patch PA status can be found under the prescription order in the Medication Tab. History or status of the PA can also be found in Chart Review under Referral tab. documented in this [id number] Telephone encounter Note* Telephone Encounter - Nighat Mahmood APRN-CNP - 02/27/2023 5:05 PM EDT Pt had video visit scheduled. Link sent to him, but he never checked in. [employer] Phone: [phone]) 781-293506-23-2023 Miscellaneous Notes* Telephone Encounter - Nighat Mahmood [...] Recommendation: n/a Thank you documented in this [id number] Telephone encounter Note* Telephone Encounter - Jordana Stanton RN - 02/27/2023 2:55 PM EDT Called the patient Reminded him of his video visit this ThursdayMarch 03 with Lindsey Mahmood Pt concerned about his leg, he will send a picture to My Chart To his provider Concerned about his infection Notified Lindsey Mahmood [facility] Phone: 1(970) 685-740206-23-2023 Telephone encounter Note* Telephone Encounter - Tobi Bowen - 02/27/2023 2:36 PM EDT What is the need: call back Situation: Pt states that the doctors office called him stating that they were running behind but he never got a phone call. Please advise Background: Please contact and advise Assessment: Pt contact info is Phone numbers Recommendation: n/a Thank you [id number] Evaluation + Plan noteExtracted from: Title:ED Note Author:Omid PARKER, Xander Field te:02/18/23 Cellulitis of right leg (L03 .115: Cellulitis of right lower limb) Right leg pain (M79.604: Pain in right leg) Orders: clindamycin, 300 mg = 1 cap(s), Oral, q6hr, X 7 day(s), # 28 cap(s), Refills(s) 0, Pharmacy: [facility] #[id number], 170, cm, 02/18/23 7:51:00 EDT, Height/Length Dosing, [...] day(s), # 15 cap(s), Refills(s) 0, Pharmacy: [id number], 170, cm, 02/18/23 7:51:00 EDT, Height/Length Dosing, 77, kg, 02/18/23 7:51:00 EDT, Weight Dosing US LE Venous Duplex Right [facility]06-14-2023 Hospital Discharge instructions Patient Education 02/18/2023 09:31:38 RICE Therapy for Routine Care of Injuries, Ivjh-hk-Dwkh RICE Therapy for Routine Care of Injuries [...] provider. Document Revised: 06/13/2021 Document Reviewed: 06/13/2021 [employer] Patient Education 2022 [facility]. 02/18/2023 09:31:38 Musculoskeletal Pain Musculoskeletal Pain Musculoskeletal [...] by mouth or applied to theskin. Take hdhg-lac-mfyyqdc and prescription medicines only as told by [...] provider. Document Revised: 12/27/2020 Document Reviewed: 12/05/2020 [employer] Patient Education 2022 [facility]. 02/18/2023 09:31:38 Pain Without a Known Cause [...] Follow these instructions at home: Medicines Take tvtz-zju-jiwujwt and prescription medicines only as told by your health care provider. Ask your health care provider if the medicine prescribed to you: ?Requires you to avoid driving or using machinery. ?Can cause constipation. You may need to take these actions to prevent or treat constipation: ? Drink enough fluid to keep your urine pale yellow. ?Take uezb-fdz-nxictam or prescription medicines. ?Eat foods that are [...] the National Suicide Prevention Lifeline at or 639. This is open 24 hours a day. Text the Crisis Text Line at 551016. Summary Pain can occur in any part [...] provider. Document Revised: 04/23/2022 Document Reviewed: 04/23/2022 [employer] Patient Education 2022 [facility]. 02/18/2023 09:31:38 Cellulitis, Adult, Kxwx-vs-Flhx Cellulitis, Adult Cellulitis is a skin infection. [...] Follow these instructions at home: Medicines Take nlml-snj-drrdgct and prescription medicines only as told by [...] provider. Document Revised: 06/05/2022 Document Reviewed: 06/05/2022 [employer] Patient Education 2022 [facility]. Follow Up Care 02/18/2023 07:42:07 With:THEO BURKS Address:Unknown When:02/21/2023 09:01:56 Comments:Follow-up with your primary care provider in 3 to 5 days. If symptoms worsen, do not improve, or new symptoms arise please report back to emergency department for further evaluation. [facility]05-16-2023 NotePOST-PROCEDURE NOTE Procedure: Transjugular liver biopsy with pressure measurements Pre-operative Diagnosis: Cirrhosis, diagnostic evaluation Post-operative Diagnosis: Portal hypertension, cirrhosis Attending: Erica Rock MD Hvac Mechanical Engineer: Leon Hernadez MD (attending) Brayan Babin MD (resident) A TIME OUT was performed prior to the procedure using active communication to verify correct patient, procedure, and site: Yes Intraoperative Medications: Medications Medication Event Details Admin User Admin Time midazolam (VERSED) 2 MG/2ML injection Medication Given Dose: 1 mg; Route: Intravenous Rachel Talavera RN 01/20/2023 8:28 AM fentaNYL (SUBLIMAZE) 100 [...] Given Dose: 1 mg; Route: Intravenous Push Rcih Rubalcava RN 01/20/2023 9:49 AM HYDROmorphone (DILAUDID) 2 [...] portion of the procedure. Brayan Babin [facility] NotePre-Procedure Note HISTORY: Procedure: Transjugular liver biopsy and pressures Indication: 37 yo male with PMH of cirrhosis likely 2/2 to alcohol use and hemolytic anemia who presents to IR for transjugular liver biopsy with portal pressures. Past Medical History: Diagnosis Date Closed fracture of angle of jaw (HCC) HLA B27 (HLA B27 positive) 2003 Followed with Rheum at [facility] Open fracture of other and unspecified part [...] Directives (Living will, health care power of disability attorney): none Patient Recent Code Status: Prior Code Status For This Procedure: Full Code Dorota Aj MD [facility] History of Present illness Narrative* Meka Lucas RN - 01/12/2023 11:11 AM EDT Labs drawn peripherally from right forearm. documented in this [id number] History of Present illness Narrative* Gustabo Ritchie [...] 100 %. Gustabo Pittman documented in this [id number] History of Present illness Narrative* April Jewell [...] Gastroenterology Fellow Division of Gastroenterology & Hepatology [facility] 01/12/23, 9:01 AM Associated attestation - [...] Gary MD Division of Gastroenterology & Hepatology [facility] documented in this [id number] Instructions* Patient Instructions* Dejuan Lechuga MD - 12/16/2022 10:23 AM EDT [facility] Family Medicine [phone] [place] [address] Lab tests can be done at a scheduled visit, or by appointment. [facility] [phone] [place] [address] Park in the Outpatient [facility] (P9) Under the [facility]. Pathology is located in the Speciality Services [place] of the Outpatient [place] on the 2nd floor.Please fill out the paper form at the front facer then have a seat in the Outpatient Blood Draw Lab (Pathology) waiting area. Hours Thursday 07:00 AM - 05:30 PM Thursday 07:00 AM - 05:30 PM Thursday 07:00 AM - 05:30 PM 07:00 AM - 05:30 PM Thursday 07:00 AM - 05:30 PM [facility] [phone] [place] [address] Follow the overhead sign to [place]: Radiology/X-ray & Lab (right arrow). Check in for testing at the Radiology & Lab Account Resolution Analyst window. Hours Thursday 10:00 AM - 02:00 PM Thursday 08:00 AM - 07:30 PM Thursday 08:00 AM - 07:30 PM Thursday 08:00 AM - 07:30 PM 08:00 AM - 07:30 PM Thursday 08:00 AM - 07:30 PM Thursday 08:00 AM - 04:00 PM [facility] Lab [phone] [place] [address] [place] at the front facer and you will be directed to the waiting area. Laboratory staff will takeyou back to the laboratory. Hours Thursday 10:00 AM - 02:00 PM Thursday 07:30 AM - 07:30 PM Thursday 07:30 AM - 07:30 PM Thursday 07:30 AM - 07:30 PM 07:30 AM - 07:30 PM Thursday 07:15 AM - 07:45 PM Thursday 08:00 AM - 04:00 PM [facility] [phone] [place] [address] Enter through the front door and continue [...] PM Thursday 08:00 AM - 04:00 PM [facility] Lab [phone] [place] [address] The [facility] is located on the first [...] PM Thursday 07:30 AM - 05:00 PM [facility] [phone] [address] [facility] [address] The [facility] is located on the first floor, room A1-2072. Enter through the Emergency doors and follow the signs to Medical Offices , making a right turn. [place] at the Registration 1A desk at the end of the hallway, then proceed to the Laboratory on the right. Hours Thursday 07:30 AM - 05:00 PM Thursday 07:30 AM - 05:00 PM Thursday 07:30 AM - 05:00 PM 07:30 AM - 05:00 PM Thursday 07:30 AM - 05:00 PM [facility] [phone] [address] [facility] [address] The [place] [facility] is located on the first [...] AM - 05:00 PM documented in this [id number] History of Present illness Narrative* Dejuan Lechuga [...] no previous surgical history on file. Diagnostics: [facility] laboratory/diagnostics reviewed and Outside laboratory/diagnostics reviewed Review [...] of . Aleja Rolon documented in this [id number] History of Present illness Narrative* Theo Burks MD - 12/15/2022 4:20 PM EDT [facility] Telemedicine Visit CC: Chief Complaint Patient presents [...] my hip. Patient has signed up for oroecohart: Yes Patient past medical, social, family, and surgical history personally reviewed and updated in [facility]. OBJECTIVE: Sounds ewll, no acute distress Breathing comfrotably on room air ASSESSMENT AND PLAN: 1. Rib pain Orders & Meds Signed During This Encounter X-ray Ribs Left Unilateral (Routine) lidocaine (LIDODERM) 5 % patch Documentation: Mode: Telephone Patient Patient Work Phone: Patient Cell Preferred phone: [phone] Consent: I confirmed patient understanding of the [...] Burks MD Family Medicine documented in this [id number] Telephone encounter Note* Telephone Encounter - Aleja Rolon - 12/15/2022 9:14 AM EDT Called patient and made appointment with tomorrow [id number] Miscellaneous Notes* Telephone Encounter - ОльгаAleja reis Bri - 12/15/2022 9:14 AM EDT Called patient and made appointment with tomorrow documented in this [id number] History of Present illness Narrative* Marcello Ibanez [...] Gastroenterology Fellow Division of Gastroenterology & Hepatology [facility] 10/27/22, 10:43 AM * Eze Schilling - 10/27/2022 9:49 AM EST Patient was identified by name and date of . Eze SchillingPatient at risk for falls:No Falls Risk protocol implemented: No documented in this [id number] History of Present illness Narrative* Haley Gary [...] Gastroenterology Fellow Division of Gastroenterology & Hepatology [facility] 10/27/22, 10:43 AM Attending addendum: Suspect [...] Gary MD Division of Gastroenterology & Hepatology [facility] * Eze Schilling - 10/27/2022 9:49 AM EST Patient was identified by name and date of . Eze SchillingPatient at risk for falls:No Falls Risk protocol implemented: No documented in this [id number] History of Present illness Narrative* Haley Gary [...] Gastroenterology Fellow Division of Gastroenterology & Hepatology [facility] 10/27/22, 10:43 AM Attending addendum: Suspect [...] Gary MD Division of Gastroenterology & Hepatology [facility] * Eze Schilling - 10/27/2022 9:49 AM EST Patient was identified by name and date of . Eze SchillingPatient at risk for falls:No Falls Risk protocol implemented: No documented in this [id number] Telephone encounter Note* Telephone Encounter - Tanika Arias RN - 09/20/2022 3:00 PM EST Situation: Pt calling to reschedule colonoscopy Background: Colonoscopy scheduled for 09/22/22, pt needs to reschedule d/t lack of transportation Assessment: N/A Recommendation: Advised patient that this nurse cannot reschedule this procedure so he should call back Micky morning. Will also send a message to GI to let them know patient is cancelling and will need rescheduled. Tanika Arias RN [facility] Work Phone: [phone]) 473-289401-14-2023 Miscellaneous Notes* Telephone Encounter - Tanika Arias [...] and will need rescheduled. Tanika Arias RN documented in this [id number] History of Present illness Narrative* Theo Burks MD - 08/29/2022 9:20 AM EST [facility] Telemedicine Visit CC: Chief Complaint Patient presents [...] surgical history personally reviewed and updated in [facility]. OBJECTIVE: There were no vitals taken for this visit. Gen: Sounds well, no acute distress Resp: breathing comfortably ASSESSMENT AND PLAN: 1. Cellulitis, unspecified cellulitis site 2. Muscle soreness Orders & Meds Signed During This Encounter Creatine Kinase Documentation: Mode: Telephone Patient Patient Work Phone: Patient Cell Preferred phone: [phone] Consent: I confirmed patient understanding of the risks and benefits of telehealth visits and obtained consent to proceed with the telehealth visit. Location of Patient: Home of patient Redness, pain, and swelling improved since Thursday. Worsening muscle aches, which is unexpected. Improving electrolytes on 08/25 (thought low glucose) Given history of redness and swelling will obtainCK, to obtain at earliest convenience. RTC PRN Teho Burks MD Family Medicine documented in this [id number] Instructions* Patient Instructions* Theo Burks MD - 08/25/2022 2:16 PM EST Continue antibiotics for another 7 days Topical antibiotic ointment for left foot Follow up on Thursday Refilled zofran (anti-nausea medication) documented in this [id number] History of Present illness Narrative* Theo Burks MD - 08/25/2022 1:31 PM EST Images from the original note were not included. [facility] Family Medicine Office Visit CC: Chief Complaint Patient presents with Leg/thigh symptoms Swelling / red New patient, to establish relationship HPI: Patient is a 36 year old male with a history of alcoholic cirrhosis , autoimmune hemolytic anemia who presents for establish care, cellulitis. Follows with Hematology for AIHA (Dr. eJnnie Black) Follows with Hepatology for EtOH cirrhosis [...] surgical history personally reviewed and updated in [facility]. OBJECTIVE: BP 132/65 (BP Location: left [...] topical mupirocin. Labs drawn this AM at [facility]--will review. Gave strict return precautions. RTC Thursday as scheduled for wound check Theo Burks MD Family Medicine documented in this [id number] History of Present illness Narrative* Abbey Alvarez [...] hepatology clinic for EtOH cirrhosis. Admitted to [facility] ICU for acute alcoholic hepatitis (MDF 43) [...] B27 positive) 2003 Followed with Rheum at [facility] Open fracture of other and unspecified part [...] Gastroenterology Fellow Division of Gastroenterology & Hepatology [facility] 08/25/22, 10:44 AM * Maura Canela - 08/25/2022 10:40 AM EST Patient was identified by name and date of . Maura Canela Patient at risk for falls:No Falls Risk protocol implemented: No documented in this [id number] History of Present illness Narrative* Abbey Alvarez [...] hepatology clinic for EtOH cirrhosis. Admitted to [facility] ICU for acute alcoholic hepatitis (MDF 43) [...] B27 positive) 2003 Followed with Rheum at [facility] Open fracture of other and unspecified part [...] Gastroenterology Fellow Division of Gastroenterology & Hepatology [facility] 08/25/22, 10:44 AM * Maura Canela - 08/25/2022 10:40 AM EST Patient was identified by name and date of . Maura Canela Patient at risk for falls:No Falls Risk protocol implemented: No documented in this [id number] History of Present illness Narrative* Abbey Alvarez [...] hepatology clinic for EtOH cirrhosis. Admitted to [facility] ICU for acute alcoholic hepatitis (MDF 43) [...] B27 positive) 2003 Followed with Rheum at [facility] Open fracture of other and unspecified part [...] Gastroenterology Fellow Division of Gastroenterology & Hepatology [facility] 08/25/22, 10:44 AM Associated attestation - [...] Gary MD Division of Gastroenterology & Hepatology [facility] * Maura Canela - 08/25/2022 10:40 AM EST Patient was identified by name and date of . Maura Beckerthomas Patient at risk for falls:No Falls Risk protocol implemented: No documented in this [id number] Note* Addendum Note - Tanvir Black MD - 08/21/2022 8:52 PM ESTAddended by: TANVIR BLACK on: 08/21/2022 08:52 PM Modules accepted: Orders [id number] Miscellaneous Notes* Addendum Note - Tanvir Black MD - 08/21/2022 8:52 PM ESTAddended by: TANVIR BLACK on: 08/21/2022 08:52 PM Modules accepted: Orders documented in this [id number] History of Present illness Narrative* Tanvir Black MD - 08/16/2022 11:07 AM EST Images from the original note were not included. Reviewed urine C&S. Urine growing klebsiella pneumoniae, with intermediate sensitivity to Macrobid. Culture Positive Culture Report Abnormal >100,000 CFU/ml Klebsiella pneumoniae Resulting Agency: [facility] Susceptibility Klebsiella pneumoniae BHAVIN Amoxicillin + Clavulanate [...] Phone numbers Preferred Tanvir Black MD Pgr [phone] Hematology/Oncology 08/16/2022 . documented in this [id number] Hospital Discharge instructions* Discharge Instructions* Dante French MD - 08/15/2022 3:08 PM EST EMERGENCY DEPARTMENT FOLLOW-UP: Please see your Primary Care Physician at next available appointment for follow up. Please call today or tomorrow to make an appointment. Residents of [facility] may apply for discounts available only to residents of [facility] by contacting the Eligibility Call Center at [phone]. If you do not have a primary physician please call [phone] for guidance on finding a [facility] provider. PLEASE NOTE: If you are followed [...] during this visit: None documented in this [id number] History of Present illness Narrative* Nenita Franco [...] B27 positive) 2003 Followed with Rheum at [facility] Open fracture of other and unspecified part [...] of . Katie Paniagua documented in this [id number] History of Present illness Narrative* Tanvir Black [...] B27 positive) 2003 Followed with Rheum at [facility] Open fracture of other and unspecified part [...] Time Provider Department Center 08/19/2022 8:30 AM [facility] OP ULTRASOUND 2 [facility] US [facility] Radiolog 08/19/2022 1:45 PM PHE OP ULTRASOUND 2 [facility] US [facility] Radiolog 08/28/2022 10:30 AM Maria C Faustin APRN-CNP [facility] 09/19/2022 11:00 AM Maria C Faustin APRN-CNP [facility] 11/13/2022 11:30 AM [facility]/13[facility]22 12:00 PM ONC NURSE [facility] Kelly Ella Black MD Hematology/Oncology 08/14/22 4:09 PM * Jojo Garcia - 08/14/2022 11:52 AM EST .Patient was identified by name and date of . Jojo Garcia .Patient at risk for falls:No Falls Risk protocol implemented: No documented in this [id number] History of Present illness Narrative* Emily Dunn RN - 08/14/2022 2:08 PM EST During this visit the vaccine(s) was: Administered Obtained informed verbal consent from patient/parent/patient business services representative for immunization(s) as ordered, questionnaire completed and VIS educational handouts reviewed with patient/parent/patient business services representative who denies contraindications and verbalizes understanding of indication, potential side effect and actions to be taken if side effects occur. Double identification of patient completed with patient/parent/patient business services representative using name and prior to administration, and patient tolerated immunization(s) administration without incident. * Maura Canela - 08/14/2022 1:08 PM EST Patient was identified by name and date of . Maura EspostoPatient at risk for falls:No Falls Risk protocol implemented: No * Maria C Faustin, COMMERCIAL CRABBER-RN DOCUMENT IMPROVEMENT SPECIALIST - 08/14/2022 1:00 PM EST Images from [...] B27 positive) 2003 Followed with Rheum at [facility] Open fracture of other and unspecified part [...] and/or coordination of care. Sincerely, KONRAD Quevedo [facility] Division of Gastroenterology & Hepatology 08/14/22 1:54 PM GI clinic documented in this [id number] History of Present illness Narrative* Emily Dunn RN - 08/14/2022 2:08 PM EST During this visit the vaccine(s) was: Administered Obtained informed verbal consent from patient/parent/patient business services representative for immunization(s) as ordered, questionnaire completed and VIS educational handouts reviewed with patient/parent/patient business services representative who denies contraindications and verbalizes understanding of indication, potential side effect and actions to be taken if side effects occur. Double identification of patient completed with patient/parent/patient business services representative using name and prior to administration, and patient tolerated immunization(s) administration without incident. * Maura Canela - 08/14/2022 1:08 PM EST Patient was identified by name and date of . Maura Foxtient at risk for falls:No Falls Risk protocol implemented: No * Maria C Faustin APRN-DAYAMI - 08/14/2022 1:00 PM EST Images from [...] B27 positive) 2003 Followed with Rheum at [facility] Open fracture of other and unspecified part [...] and/or coordination of care. Sincerely, KONRAD Quevedo [facility] Division of Gastroenterology & Hepatology 08/15/22 8:19 AM GI clinic documented in this [id number] History of Present illness Narrative* Emily Dunn RN - 08/14/2022 2:08 PM EST During this visit the vaccine(s) was: Administered Obtained informed verbal consent from patient/parent/patient business services representative for immunization(s) as ordered, questionnaire completed and VIS educational handouts reviewed with patient/parent/patient business services representative who denies contraindications and verbalizes understanding of indication, potential side effect and actions to be taken if side effects occur. Double identification of patient completed with patient/parent/patient business services representative using name and prior to administration, and patient tolerated immunization(s) administration without incident. * Maura Canela - 08/14/2022 1:08 PM EST Patient was identified by name and date of . Maura WilhelmoPatient at risk for falls:No Falls Risk protocol implemented: No * Maria C Faustin, LIBAN-RN DOCUMENT IMPROVEMENT SPECIALIST - 08/14/2022 1:00 PM EST Images from [...] B27 positive) 2003 Followed with Rheum at [facility] Open fracture of other and unspecified part [...] likely 2/2 hemolytic anemia) -discuss with transplant orange peel operator, Dr. Gary and arrange for f/u in fellows clinic [...] and/or coordination of care. Sincerely, KONRAD Quevedo [facility] Division of Gastroenterology & Hepatology 08/15/22 8:19 AM GI clinic documented in this [id number] History of Present illness Narrative* Jasmyne Grimaldo [...] clinic. Jasmyne Grimaldo RN documented in this [id number] Instructions* Patient Instructions* Emily Dunn RN - [...] these numbers to schedule your Upper Endoscopy. [facility] [id number] West Entrance Thursday-Thursday 8A-4P [facility] [address] [place], [place] [address] Thursday-Thursday 8A-4P [facility]. [address] [place], [place] [id number] Thursday-Thursday 8A-4P Centralized GI Procedure scheduling: UPPER [...] hours, please call to speak to the [facility] nurse regional account manager. If you need to cancel this appointment, please call , at least 48 hours before your appointment time. For additional health or procedure preparation information call the [employer] line at . The [employer] line is open 24 hours a day including weekends and holidays. PLEASE BRING IN YOUR INSURANCE CARD AND MEDICATIONS OR LIST OF CURRENT MEDICATIONS. PLEASE LEAVE JEWELRY AT HOME AND DO NOT WEAR HEAVY FRAGRANCE OR NAIL [place] WE MAKE EVERY ATTEMPT TO MAINTAIN OUR [...] any problems or questions, please call the [employer] line at [phone]. documented in this [id number] Instructions* Patient Instructions* Emily Dunn RN - [...] these numbers to schedule your Upper Endoscopy. [address] Entrance Thursday-Thursday- [facility] [address], [place] [id number] Thursday-Thursday [facility]. [address] [place], [place] [id number] Thursday-Thursday-4P Centralized GI Procedure scheduling: UPPER ENDOSCOPY or [...] hours, please call to speak to the [facility] nurse regional account manager. If you need to cancel this appointment, please call , at least 48 hours before your appointment time. For additional health or procedure preparation information call the [employer] line at . The [employer] line is open 24 hours a day including weekends and holidays. PLEASE BRING IN YOUR INSURANCE CARD AND MEDICATIONS OR LIST OF CURRENT MEDICATIONS. PLEASE LEAVE JEWELRY AT HOME AND DO NOT WEAR HEAVY FRAGRANCE OR NAIL [place] WE MAKE EVERY ATTEMPT TO MAINTAIN OUR [...] any problems or questions, please call the [employer] line at [phone]. documented in this [id number] History of Present illness Narrative* Tanvir Black [...] B27 positive) 2003 Followed with Rheum at [facility] Open fracture of other and unspecified part [...] Center 08/14/2022 11:30 AM [facility] 12[facility]00 PM ONC NURSE [facility] 08/14/2022 1:00 PM Maria C Faustin APRN-[facility] Ella Black MD Hematology/Oncology 05/06/22 4:11 PM * Sally Chavez - 05/06/2022 10:03 AM EDT Patient was identified by name and date of . Sally Scott Body Mass Index is 26.78. Body Surface Area is 1.89 square meters according to the formula of Eli and Eli. Patient at risk for falls:No Falls Risk protocol implemented: No Blood pressure 137/70, pulse 75, temperature 98.4 F (36.9 C), resp. rate 16, height 5' 7 (1.702 m), weight 171 lb (77.6 kg), SpO2 100 %. Sally Chavez documented in this [id number] History of Present illness Narrative* Leslie Canela, IRENA - 05/06/2022 11:29 AM EDT Patient was identified by name and date of . Leslie Canela RN Patient at risk for falls:Yes Falls Risk protocol implemented: No Patient arrived to clinic for blood test following MD visit. Blood obtained via venipuncture from [facility] using 23G 3/4 in butterfly needle, sent to lab, patient tolerated well. Patient verbalized followup instructions, to waiting room to await results. Leslie Canela RN documented in this [id number] History of Present illness Narrative* Rosita Le RN - 03/13/2022 12:29 PM EDT Patient was identified by name and date of . 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 Blood obtained via venipuncture from [facility] [id number] 3/4in butterfly needle. Blood specimen sent to lab. Pt tolerated procedure well. Pt verbalized follow up instructions and discharged home in stable condition. Rosita Le RN documented in this [id number] History of Present illness Narrative* Tanvir Black MD - 03/13/2022 11:45 AM EDT Images from the original note were not included. Hematology & Oncology Clinic Note Reason for Consult: Hemolytic anemia Alcoholic cirrhosis Thrombocytopenia Long-term steroid use Referring Provider: Afua Umanzor MD Chief Complaint Patient presents with Monitoring/follow-up Fatigue nausea and vomiting History of Present Illness Will Andreson is a 36 year old male with [...] B27 positive) 2003 Followed with Rheum at [facility] Open fracture of other and unspecified part [...] to oncologist closer to his home in [facility]. Patientto call back with name of pharm tech and fax number.will keep care here with [...] AM MAIN CARD TEST-311 Non Inv Card [facility] 05/06/2022 10:30 AM Tanvir Black MD [facility] 05/06/2022 11:00 AM ONC NURSE [facility] Kelly Ella Black MD Hematology/Oncology 03/13/22 5:20 PM * Jojo Garcia - 03/13/2022 11:41 AM EDT .Patient was identified by name and date of . Jojo Garcia .Patient at risk for falls:Yes Falls Risk protocol implemented: No documented in this [id number] Hospital Discharge instructions Patient Education 02/17/2022 16:25:10 [...] care provider. Do not drink alcohol. Take nlho-gyv-idngstq and prescription medicines only as told by [...] 08/24/2006 Document Revised: 05/26/2019 Document Reviewed: 05/26/2019 [employer] Patient Education 2020 [employer]. 02/17/2022 16:25:10 Cellulitis, Adult Cellulitis, Adult Cellulitis [...] Follow these instructions at home: Medicines Take sulb-wxr-makclms and prescription medicines only as told by [...] such as antibiotic medicines or antihistamines. Take qqwh-otw-urvcnwm and prescription medicines only as told by [...] 06/03/2006 Document Revised: 01/13/2019 Document Reviewed: 01/13/2019 [employer] Patient Education 2020 [employer]. 02/17/2022 16:25:10 Hypokalemia Hypokalemia Hypokalemia means that [...] hospital. Follow these instructions at home: Take ckkx-not-cdirzhf and prescription medicines only as told by [...] cantaloupe, kiwi, oranges, tomatoes, asparagus, and potatoes. ?[place]auseon juice. ?Tomato juice. ?Red meats. ?Yogurt. Keep [...] 08/24/2006 Document Revised: 04/06/2019 Document Reviewed: 04/06/2019 [employer] Patient Education 2020 [employer] 02/17/2022 16:25:10 Peripheral Edema Peripheral Edema Peripheral [...] by your health care provider. Medicines Take hcob-luv-cbqcvei and prescription medicines only as told by [...] 10/01/2005 Document Revised: 05/18/2019 Document Reviewed: 05/18/2019 [employer] Patient Education 2020 [employer]. Follow Up Care 02/17/2022 12:28:34 With:Milagros Lofton Address:Unknown When:02/20/2022 15:52:54 Comments:Return to the emergency room if your pain gets worse, fever, swelling gets worse or any new symptoms With:Colby Link Address: [address] [place] [address]- Business (1) When:Within 3 Day(s) [facility]06-13-2022 Evaluation + Plan noteExtracted from: Title:ED Note Author:Christi Luo M.D. te:02/17/22 1. Pedal edema (R60.0: Local ized edema) 2. Cellulitis of scrotum (N49.2: Inflammatory disorders of scrotum) 3. Thrombocytopenia (D69.6: Thrombocytopenia, unspecified) 4. Hypokalemia (E87.6: Hypokalemia) Orders: clindamycin, 300 mg = 2 cap(s), Oral, QID, # 56 cap(s), Refills(s) 0, [facility], 170.2, cm, 02/17/22 12:34:00 EDT, [...] Charcoal 02/17/22 * Blood Culture Charcoal 02/17/22 [facility]06-07-2022 Telephone encounter Note* Telephone Encounter - Kulwinder [...] Kulwinder Dozier PharmD, PharmD. Oncology Specialty Pharmacist [id number] Date: 02/11/22 [id number] Miscellaneous Notes* Telephone Encounter - Kulwinder Dozier [...] Kulwinder Dozier PharmD, PharmD. Oncology Specialty Pharmacist [id number] Date: 02/11/22 * Telephone Encounter - Kulwinder Dozier PharmD - 02/11/2022 12:39 PM EDT Images from the original note were not included. [facility] received a prescription for MMF (Cellcept) for this patient on 02/11/2022. [facility] has been contacted to initiate a Prior Authorization for this medication. This is an immunomodulatory agent Patient Information: Will Anderson is a 36 year old male [id number] [facility] [address] Insurance on file: [employer] ID: [id number] BIN: [id number] PCN: -- Group: [id number] Specialty Medication Medication and dosing: mycophenolate (CELLCEPT) 500 MG tablet- Take 2 tablets by mouth 2 times daily. 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 [id number] Supporting Clinical Information: Progress Notes 02/11/2022 (Dr. [...] pharmacist once medication is approved. Questions for [facility] may be directed to [phone] option 3. Thank you for the referral, Kulwinder Dozier PharmD Oncology Specialty Pharmacist [phone] [id number] documented in this [id number] Telephone encounter Note* Telephone Encounter - Kulwinder Dozier PharmD - 02/11/2022 12:39 PM EDT Images from the original note were not included. [facility] Referral [facility] received a prescription for MMF (Cellcept) for this patient on 02/11/2022. [facility] has been contacted to initiate a Prior Authorization for this medication. This is an immunomodulatory agent Patient Information: Will Anderson is a 36 year old male [id number] [facility] [address] Insurance on file: [employer] ID: [id number] BIN: [id number] PCN: -- Group: [id number] Specialty Medication Medication and dosing: mycophenolate (CELLCEPT) 500 MG tablet- Take 2 tablets by mouth 2 times daily. 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 [...] pharmacist once medication is approved. Questions for [facility] may be directed to [phone] option 3. Thank you for the referral, Kulwinder Dozier PharmD Oncology Specialty Pharmacist [phone] [id number] History of Present illness Narrative* Cyn Hopepr RN - 02/11/2022 11:45 AM EDT Patient was identified by name and date of . Cyn Hopper RN Patient at risk for falls:No Falls Risk protocol implemented: No 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) [393521] Pt arrived to clinic for MDVS and labs. Blood obtained via venipuncture from [facility] using 23G 3/4in butterfly needle. Blood specimen sent to lab. Pt tolerated procedure well, dressing applied. AVS provided and reviewed. Pt verbalized follow up instructions and discharged home in stable condition. Cyn Hopper RN documented in this [id number] Miscellaneous Notes* Telephone Encounter - Liseth Santana [...] patient 2. [place] [id number] (Pharmacy Prior Authorization Pool) Patient advised to follow up with provider's office if they have any further questions or if no answer after 3 business days. Providers office is to contact patient to advise of medication changes/next steps documented in this [id number] Miscellaneous Notes* Care Plan Note - Rosa [...] functional outcome goals 01/17/2022 1654 by Rosa Mensah, IRENA Outcome: Completed 01/17/2022 1654 by Rosa Mensah [...] Mensah RN Outcome: Progressing 01/17/2022 1625 by Hayba, Rosa, RN Outcome: Progressing Goal: Acceptable level of [...] good radial pulse. * Multidisciplinary Note - Daily Teddy Greer RN - 01/15/2022 3:50 PM EDT Full [...] OF CARE: Continue supportive care MRI of LUE Trx to RNF BARRIERS TO PLAN OF CARE: None AUTOMOBILE ACCESSORIES INSTALLER RN Jessee Callahan RN DAY SHIFT RN Alvaro Daily RN * Transfer Note - Keo Gaona [...] was yellow x 1 day. While at [facility], patient was HDS, however noted with significant bru ising and edema of LUE. Reportedly, trauma surgery was consulted at [facility] and there was initially concern for compartment syndrome and fasciotomy was considered, but ultimately did not occur at the time. The trauma attending Dr. Du recommended orthopedic consultation upon arrival to the [facility] MICU. While at [facility] labs significant for indirect hyperbilirubinemia, and acute macrocytic anemia 6.9 requiring 1u pRBC and [address] Abd/Pelvis W/ Contrast showed liver cirrhosis and steatosis without CBD dilation. Received morphine, ceftriaxone, protonix, thiamine. Started on NS for rhabdo. Patient transferred to [facility] for tertiary center care. While in the [facility] MICU, Ortho following - request MR Nadia [...] (PRN) Note: Family updated ? Transfer to [facility] soon- weaning precidex off Sw/outsole caser for dc concerns Problem: Safety: Goal: Free [...] OF CARE: BARRIERS TO PLAN OF CARE: AUTOMOBILE ACCESSORIES INSTALLER RN: Bharat Callahan DAY SHIFT RN: Meli Keane * 1:1 Interaction - Keo Gaona MD - 01/14/2022 7:42 AM EDT Images from the original note were not included. SECLUSION/RESTRAINTS PROVIDER YIZV-IH-EALE EVALUATION NOTE Will Anderson was evaluated on [...] additional home-going needs (PRN) Note: Family updates Sw/outsole caser as needed Problem: Safety: Goal: Free from [...] none BARRIERS TO PLAN OF CARE: none AUTOMOBILE ACCESSORIES INSTALLER RN Jessee Unger RN DAY SHIFT RN Quinn Graham RN * 1:1 Interaction - Hannah Leggett MD - 01/13/2022 4:30 AM EDT Images from the original note were not included. SECLUSION/RESTRAINTS PROVIDER YPEG-VZ-OPPC EVALUATION NOTE Will Anderson was evaluated on [...] None BARRIERS TO PLAN OF CARE: None AUTOMOBILE ACCESSORIES INSTALLER RN : Elsa Jenkins RN DAY SHIFT [...] original note were not included. SECLUSION/RESTRAINTS PROVIDER BVTI-GG-VTWJ EVALUATION NOTE Will Anderson was evaluated on [...] none BARRIERS TO PLAN OF CARE: none AUTOMOBILE ACCESSORIES INSTALLER IRENA Canales DAY SHIFT RN Jessee Childers * 1:1 Interaction - Hannah Leggett MD - 01/11/2022 1:39 AM EDT Images from the original note were not included. SECLUSION/RESTRAINTS PROVIDER TZPX-MA-PSZI EVALUATION NOTE Will Anderson was evaluated on [...] to remain still for MRI. Dr. Antoinette abel AUTOMOBILE ACCESSORIES INSTALLER RN Quinn Jameson DAY SHIFT RN Jessee Childers * 1:1 Interaction - Abhinav De La Vega DO - 01/10/2022 2:31 PM EDT SECLUSION/RESTRAINTS PROVIDER LKKI-TA-XVKL EVALUATION NOTE Will Anderson was evaluated on [...] original note were not included. SECLUSION/RESTRAINTS PROVIDER GFYH-FV-VVEA EVALUATION NOTE Will Anderson was evaluated on 05/06/22 at 0508. The attending, Dr. Marino was [...] were discussed with the patient and/or legal business services representative. The risks, benefits and alternatives were reviewed. Questions regarding blood transfusions were answered. The patient /or the patient s legal business services representative agree with the plan for transfusion [...] - 01/09/2022 9:02 AM EDT SECLUSION/RESTRAINTS PROVIDER IHOU-IG-ESKA EVALUATION NOTE Will Anderson was evaluated on [...] safe while in restraints and once discontinued 01/09/2022629 by Bang Jameson RN Outcome: Progressing Note: Pt requiring soft limb x4 and a soft waist restraint at this time. Pt became combative towards staff as well as removing necessary medical devices. RN will continue to assess the need of the restraints and the ability to decrease when able. 01/09/2022628 by Bang Jameson RN Outcome: Progressing Problem: Routine Care: Goal: Patient care will be managed and maintained throughout hospital stay per unit specific routine care procedure 01/09/2022629 by Bang Jameson RN Outcome: Progressing [...] needs are addressed prior to their discharge. 01/09/2022 06 by Bang Jameson RN Outcome: Progressing Problem: Alcohol Withdrawal: Goal: Free from complications of withdrawal 01/09/2022 0630 by Bang Jameson RN Outcome: Progressing Note: Pt experiencing acute withdrawal. PRN ativan given as well as a one time dose of haldol. Precedex gtt initiated and titrated per MD parameters until RASS goal was met. 01/09/2022 06 by Bang Jameson RN Outcome: [...] original note were not included. SECLUSION/RESTRAINTS PROVIDER CBIB-LN-ZJFT EVALUATION NOTE Will Anderson was evaluated on [...] - 01/08/2022 10:46 PM EDT SECLUSION/RESTRAINTS PROVIDER CGTC-JO-MCAW EVALUATION NOTE Willana Anderson was evaluated on 01/08/22 at 2230. [...] of harm to self documented in this [id number] Hospital course Narrative* Afua Umanzor MD - 01/17/2022 3:31 PM EDT Images from the original note were not included. DISCHARGE SUMMARY [place] [id number] Will Anderson Date of : 1985 36 [...] Referral Type: Service Level Authorization Referral Location: [facility] Number of Visits Requested: 3 Expiration Date: 01/17/23 HEMATOLOGY SERVICE REQUEST Referral Priority: Routine Referral Type: Service Level Authorization Referral Location: [facility]EM[facility] Number of Visits Requested: 3 Expiration Date: 01/17/23 LIVER SERVICE REQUEST Referral Priority: Routine Referral Type: Service Level Authorization Referral Location: [facility] LIVER Number of Visits Requested: 3 Expiration Date: 01/17/23 Future Appointments Date Time Provider Department Center 01/20/2022 11:00 AM Abbey Alvarez MD Liver [facility] 01/23/2022 11:45 AM Ronen Welch MD [facility] ORTHO [facility] 02/11/2022 10:00 AM Tanvir Black MD OncMed Main Means Condition at Discharge Improved Activity No restrictions [...] bilirubin may falsely lower creatinine 169 63 165 67 2202 6.4 2.6 2.10 11.1 Comment: Elevated bilirubin [...] followed by pain. He was seen at [facility] and transferred to ICU He was found [...] he will get assistance from rehab in [place] for alcohol abuse. On the day of discharge, patient was stable. Left arm swelling was improving. He has good peripheral pulses in the left arm. He is alert and oriented x3. CVS - systolic murmur, lungs - clear to auscultation, abdomen - soft, nontender, OIL SPREADER OPERATOR - alert, moving all extremities. Current Discharge [...] follow-up Afua umanzor MD documented in this [id number] History of Present illness Narrative* Kennedi Best [...] ETOH resources. Pt declines assistance. RAI Claudio, SUPERVISOR BODY ASSEMBLY-S [phone] * Afua Umanzor MD - 01/16/2022 8:18 AM EDT Images from the original note were not included. GENERAL MEDICAL FLOOR DAILY PROGRESS NOTE Will Ramo [id number] 1044/01/16/2022 Length of stay: 8 day(s) SUBJECTIVE: Patient [...] Oral Q6H PRN 50 mg at 01/16/22 0919 lactulose 20 g/30 mL oral solution 20 [...] mL Oral Daily 15 mL at 01/16/22 0919 vitamin B-12 (CYANOCOBALAMIN) tablet 500 mcg Oral Daily 500 mcg at 01/16/22 0919 cloNIDine (CATAPRES) 0.1 mg/24HR patch 0.1 mg Transdermal Q7 Days 0.1 mg at 01/16/22 1449 LAB DATA: CBC (last 3 years, up to 5 values) (Last 5 results in the past 3 years) WBC RBC Hgb Hct MCV RDW Plt 01/16/22 0503 9.2 1.92 7.4 21.6 112 [...] Cl CO2 Gap Glu BUN Cr Ca 01/16/22 0503 132 3.7 98 24 14 102 9 0.42 Comment: Grossly icteric; may falsely decrease creatinine 8.3 01/15/22 032 132 3.5 97 25 14 112 8 [...] ATTENDING NOTE LEON SANTANA MD - PIN [id number] I saw and evaluated the patient. I [...] Bili Alk Phos ALT AST Amylase Lipase 01/15/22326 6.5 2.6 2.10 10.8 Comment: Elevated bilirubin may falsely lower creatinine 182 65 104 01/14/22 035 6.4 2.6 2.20 11.5 Comment: Elevated bilirubin may falsely lower creatinine 177 62 104 01/13/22 025 6.2 2.6 2.10 11.4 Comment: Elevated bilirubin may falsely lower creatinine 169 63 124 CBC/PT/INR WBC RBC Hgb Hct MCV RDW Plt PT aPTT INR 01/15/22326 8.9 1.88 7.3 21.1 113 24.4 74 01/15/22 032 1.89 01/14/22354 7.3 1.91 7.3 21.3 112 24.1 65 01/14/22 0355 1.94 01/13/22251 7.3 1.76 6.7 19.3 110 24.4 67 01/13/22 025 2.05 01/12/221654 7.8 1.73 6.6 19.5 113 25.3 69 WBC/Diff Neutro% Segs% Bands% Lymphs% Monos% Eos% Basos% 01/14/22354 66.0 20.0 9.0 2.0 01/13/22251 69.0 8 15.0 1.0 01/12/22 1655 74.0 3 8.0 12.0 esomeprazole 40 mg [...] Days dexmedetomidine (PRECEDEX) IV infusion orderable Stopped (01/15/22 0345) Tube feed 20 mL/hr at 01/09/22 1500 [...] Director, Pulmonary, Critical Care and Sleep Medicine [facility] * Reanna Doyle, [facility] - 01/15/2022 9:24 AM EDT Pharmacy Intravenous [...] been updated per consult agreement. REANNA DOYLE [facility] Department of Pharmacy Services * Keo Gaona MD - 01/15/2022 7:51 AM EDT Images from the original note were not included. [facility] Medical Intensive Care Unit Critical Care Progress Note Will Anderson 36 year old 136.348851 lbs MRN/Room: [id number]/CP3-303/1 Length of stay: 7 day(s) Summary 36M [...] was yellow x 1 day. While at [facility], patient was HDS, however noted with significant bru ising and edema of LUE. Reportedly, trauma surgery was consulted at [facility] and there was initially concern for compartment syndrome and fasciotomy was considered, but ultimately did not occur at the time. The trauma attending Dr. Du recommended orthopedic consultation upon arrival to the [facility] MICU. While at [facility] labs significant for indirect hyperbilirubinemia, and acute macrocytic anemia 6.9 requiring 1u pRBC and [address] Abd/Pelvis W/ Contrast showed liver cirrhosis and steatosis without CBD dilation. Received morphine, ceftriaxone, protonix, thiamine. Started on NS for rhabdo. Patient transferred to [facility] for tertiary center care. While in the [facility] MICU, Ortho following - request MR Nadia [...] dexmedetomidine (PRECEDEX) IV infusion orderable Stopped (01/15/22 3756) Tube feed 20 mL/hr at 01/09/22 1500 [...] Status Port #1 Capped;Patent;Positive blood return 01/09/22 040 Number of days: 1 External Urinary Collection (Active) Site Assessment WNL 01/09/22 040 Collection Type Drainage bag 01/09/22399 Catheter Care Catheter tube secured 01/09/22399 Change Date 01/09/22 01/09/22 0000 Change Time [...] MCV RDW Plt PT aPTT INR 01/15/22 0327 8.9 1.88 7.3 21.1 113 24.4 74 01/15/22 0327 1.89 01/14/22 0355 7.3 1.91 7.3 21.3 112 [...] Gap Glu BUN Cr Ca Mg PO4 01/15/227 132 3.5 97 25 14 112 8 0.42 Comment: Grossly icteric; may falsely decrease creatinine 7.9 01/14/225 136 3.4 101 27 11 136 6 [...] Bili T Bili Alk Phos ALT AST 01/15/227 6.5 2.6 2.10 10.8 Comment: Elevated bilirubin [...] improving with IV hydration Hyperbilirubinemia worsening since Paulino-Dittmer. 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 MICU ATTENDING NOTE LEON SANTANA MD - PIN [id number] I saw and evaluated the patient. I [...] medical issues requiring critical care management include: OIL SPREADER OPERATOR FAILURE. HEPATIC FAILURE . Additional findings and [...] Gap Glu BUN Cr Ca Mg PO4 01/14/22354 136 3.4 101 27 11 136 [...] Bili Alk Phos ALT AST Amylase Lipase 01/14/22354 6.4 2.6 2.20 11.5 Comment: Elevated bilirubin may falsely lower creatinine 177 62 104 01/13/22 025 6.2 2.6 2.10 11.4 Comment: Elevated bilirubin may falsely lower creatinine 169 63 124 01/12/22340 6.4 2.6 2.10 11.1 Comment: Elevated bilirubin may falsely lower creatinine 148 61 131 CBC/PT/INR WBC RBC Hgb Hct MCV RDW Plt PT aPTT INR 01/14/22354 7.3 1.91 7.3 21.3 112 24.1 65 01/14/22354 1.94 01/13/22251 7.3 1.76 6.7 19.3 110 24.4 67 01/13/22 025 2.05 01/12/22 165 7.8 1.73 6.6 19.5 113 25.3 69 01/12/22340 2.12 01/12/22 034 8.0 1.72 6.5 18.7 109 25.4 59 WBC/Diff Neutro% Segs% Bands% Lymphs% Monos% Eos% Basos% 01/14/22354 66.0 20.0 9.0 2.0 05/09/22 0252 69.0 8 15.0 1.0 01/12/22 1655 74.0 3 8.0 12.0 01/12/22 0340 66.4 20.7 11.3 0.9 0.7 copper chloride [...] Director, Pulmonary, Critical Care and Sleep Medicine [facility] * Keo Gaona MD - 01/14/2022 7:42 AM EDT Images from the original note were not included. [facility] Medical Intensive Care Unit Critical Care Progress Note Will Anderson 36 year old 136.685 lbs MRN/Room: [id number]/CP3-303/1 Length of stay: 6 day(s) Summary 36M [...] was yellow x 1 day. While at [facility], patient was HDS, however noted with significant bru ising and edema of LUE. Reportedly, trauma surgery was consulted at [facility] and there was initially concern for compartment syndrome and fasciotomy was considered, but ultimately did not occur at the time. The trauma attending Dr. Du recommended orthopedic consultation upon arrival to the [facility] MICU. While at [facility] labs significant for indirect hyperbilirubinemia, and acute macrocytic anemia 6.9 requiring 1u pRBC and [address] Abd/Pelvis W/ Contrast showed liver cirrhosis and steatosis without CBD dilation. Received morphine, ceftriaxone, protonix, thiamine. Started on NS for rhabdo. Patient transferred to [facility] for tertiary center care. While in the [facility] MICU, Ortho following - request MR L [...] (37.3 C) Oral -- -- -- -- 01/14/22 0300 121/69 -- -- 81 14 94 [...] -- -- 80 12 96 % -- 01/13/22 2000 131/74 -- -- 76 14 94 % [...] 15.0 1.0 01/12/221654 74.0 3 8.0 12.0 01/12/22339 66.4 20.7 11.3 0.9 0.7 01/11/22 1430 78.0 3 10.0 7.0 2.0 Basic Metabolic Panel Na K Cl CO2 Gap Glu BUN Cr Ca Mg PO4 01/14/22354 136 3.4 101 27 11 136 [...] Glucose 01/14/22 0355 154 Comment: Follow Protocol 01/13/22 2126 185 Comment: Notified IRENA NICHOLAS MD 01/13/22 [...] improving with IV hydration [facility] DDx favors hemolysis - could be from [...] No overt GIB. 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 [facility] Medical Intensive Care Unit Critical Care Progress Note Will Anderson 36 year old [id number] lbs MRN/Room: [id number]/CP3-303/1 Length of stay: 5 day(s) Summary 36M [...] was yellow x 1 day. While at [facility], patient was HDS, however noted with significant bru ising and edema of LUE. Reportedly, trauma surgery was consulted at [facility] and there was initially concern for compartment syndrome and fasciotomy was considered, but ultimately did not occur at the time. The trauma attending Dr. Du recommended orthopedic consultation upon arrival to the [facility] MICU. While at [facility] labs significant for indirect hyperbilirubinemia, and acute macrocytic anemia 6.9 requiring 1u pRBC and [address] Abd/Pelvis W/ Contrast showed liver cirrhosis and steatosis without CBD dilation. Received morphine, ceftriaxone, protonix, thiamine. Started on NS for rhabdo. Patient transferred to [facility] for tertiary center care. While in the [facility] MICU, Ortho following - request MR Nadia [...] lactated ringers 150 mL/hr at 01/13/22 0900 acetaminophen 500 mg Q6H PRN LORazepam 2 mg Q2H PRN Objective Patient Vitals for the past 24 hrs: BP Temp Temp src Pulse Resp SpO2 O2 Device 01/13/22 09 135/72 -- -- 81 16 90 % Room air 01/13/22 0830 -- -- -- 85 18 88 % Room air 01/13/22 0800 132/72 -- -- 85 17 92 % Room air 01/13/22 0728 -- 98.4 F (36.9 C) Axillary -- -- -- -- 01/13/22 0700 139/74 -- -- 88 18 90 % -- 01/13/22 0600 136/70 -- -- 84 17 93 % [...] to Hospital (Active) Site Assessment WNL;Dressing intact 01/09/22399 Infusion Status Port #1 Infusing;Patent 01/09/22399 Number of days: 2 Peripheral IV Access: [...] improving with IV hydration Hyperbilirubinemia worsening since [facility]. DDx favors hemolysis - could be from [...] No overt GIB. 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 MICU ATTENDING NOTE LEON ASNTANA MD - PIN [id number] I saw and evaluated the patient. I [...] management include: ACUTE BLOOD LOSS ANEMIA and OIL SPREADER OPERATOR FAILURE. HEPATIC FAILURE . Additional findings and [...] Bili Alk Phos ALT AST Amylase Lipase 01/13/22 0252 6.2 2.6 2.10 11.4 Comment: Elevated bilirubin may falsely lower creatinine 169 63 124 01/12/22 0341 6.4 2.6 2.10 11.1 Comment: Elevated bilirubin may falsely lower creatinine 148 61 131 01/11/22 0116 5.7 2.6 2.20 11.4 Comment: Elevated bilirubin may falsely lower creatinine 95 57 143 CBC/PT/INR WBC RBC Hgb Hct MCV RDW Plt PT aPTT INR 01/13/22 025 7.3 1.76 6.7 19.3 110 [...] Segs% Bands% Lymphs% Monos% Eos% Basos% 01/13/22 025 69.0 8 15.0 1.0 01/12/22 [...] Director, Pulmonary, Critical Care and Sleep Medicine [facility] * Codi Thurman LSW - 01/13/2022 9:49 AM EDT [facility] ICU Note: SW continues to follow for positive screen for low risk suicide and abuse. MARLON spoke with bedside RN who reported pt alert but drowsy. SW to follow up with pt to attempt to address. Codi Thurman [facility] Care Coordination Department 10:59 AM Addendum: SW met with pt at bedside. Pt sleeping upon SW entering room. Pt restrained, with mits. SW did not awake to name being called several times. SW will follow up with pt as appropriate to address. Codi Thurman [facility] Care Coordination Department * Elizabeth Unger RN [...] ATTENDING NOTE LEON SANTANA MD - PIN [id number] I saw and evaluated the patient. 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 Additional findings and notation: [...] Glu BUN Cr Ca Mg PO4 01/12/22 034 132 3.2 98 26 11 147 6 [...] Bili Alk Phos ALT AST Amylase Lipase 01/12/221 6.4 2.6 2.10 11.1 Comment: Elevated bilirubin [...] Director, Pulmonary, Critical Care and Sleep Medicine [facility] * Keo Gaona MD - 01/12/2022 8:32 AM EDT Images from the original note were not included. [facility] Medical Intensive Care Unit Critical Care Progress Note Will Anderson 36 year old [id number] lbs MRN/Room: [id number]/CP3-303/1 Length of stay: 4 day(s) Summary 36M [...] was yellow x 1 day. While at [facility], patient was HDS, however noted with significant bru ising and edema of LUE. Reportedly, trauma surgery was consulted at [facility] and there was initially concern for compartment syndrome and fasciotomy was considered, but ultimately did not occur at the time. The trauma attending Dr. Du recommended orthopedic consultation upon arrival to the [facility] MICU. While at [facility] labs significant for indirect hyperbilirubinemia, and acute macrocytic anemia 6.9 requiring 1u pRBC and [address] Abd/Pelvis W/ Contrast showed liver cirrhosis and steatosis without CBD dilation. Received morphine, ceftriaxone, protonix, thiamine. Started on NS for rhabdo. Patient transferred to [facility] for tertiary center care. While in the [facility] MICU, Ortho following - request MR Nadia cohen for assessment of possible complete vspartial L [...] 1500 lactated ringers 150 mL/hr at 01/12/22 08 acetaminophen 500 mg Q6H PRN LORazepam 2 mg Q2H PRN Objective Patient Vitals for the past 24 hrs: BP Temp Temp src Pulse Resp SpO2 O2 Device 01/12/22 08 -- -- -- -- -- -- Room air 01/12/22 0731 -- 98.3 F (36.8 C) Axillary -- [...] -- -- 87 17 96 % -- 01/11/22 2113 -- -- -- 91 16 94 % -- 01/11/22 2100 147/82 -- -- 91 20 -- -- 01/11/222012 -- -- -- 99 24 99 % -- 01/11/22 2000 143/79 99 F (37.2 C) Axillary 93 [...] Glu BUN Cr Ca Mg PO4 01/12/22 034 132 3.2 98 26 11 147 6 0.39 Comment: Grossly icteric; may falsely decrease creatinine 7.9 01/11/22 011 2.0 01/11/22 011 133 3.4 101 25 10 149 5 0.43 Comment: Grossly icteric; may falsely decrease creatinine 8.0 01/10/22 1626 1.7 01/10/22 162 134 3.5 99 22 17 165 4 0.60 Comment: Grossly icteric; may falsely decrease creatinine 8.6 01/10/22352 133 4.0 101 27 9 172 9 [...] Bili T Bili Alk Phos ALT AST 01/12/221 6.4 2.6 2.10 11.1 Comment: Elevated bilirubin [...] 50 129 Cardiac None Fingerstick Glucose Glucose 05/08/22 0339 157 Comment: Follow Protocol 01/11/22 2125 [...] No evidence of ascites. US RUQ US 5/4 IMPRESSION: 1. Cirrhosis with severe hepatic steatosis. 2. Focal asymmetric gallbladder wall thickening most suggestive of adenomyosis. Gallbladder sludge.No pericholecystic fluid or sonographic Galeano's sign to suggest acute cholecystitis. 3. Normal size common bile duct measuring 5 mm. Mild intrahepatic biliary dilatation is noted. CXR 5/5 Impression: CorPak tube is in the antrum. [...] improving with IV hydration Hyperbilirubinemia worsening since [facility]. DDx favors hemolysis - could be from [...] No overt GIB. 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 [facility] Medical Intensive Care Unit Critical Care Progress Note Will Anderson 36 year old [id number] lbs MRN/Room: [id number]/CP3-139/1 Length of stay: 3 day(s) Summary 36M [...] was yellow x 1 day. While at [facility], patient was HDS, however noted with significant bru ising and edema of LUE. Reportedly, trauma surgery was consulted at [facility] and there was initially concern for compartment syndrome and fasciotomy was considered, but ultimately did not occur at the time. The trauma attending Dr. Du recommended orthopedic consultation upon arrival to the [facility] MICU. While at [facility] labs significant for indirect hyperbilirubinemia, and acute macrocytic anemia 6.9 requiring 1u pRBC and [address] Abd/Pelvis W/ Contrast showed liver cirrhosis and steatosis without CBD dilation. Received morphine, ceftriaxone, protonix, thiamine. Started on NS for rhabdo. Patient transferred to [facility] for tertiary center care. While in the [facility] MICU, Ortho following - request MR L [...] vitals, Afebrile currently (Tmax 100.7 @ 01/10 1945), HR 80's, Blood pressure 122/53, 96% on RA I/O's 5.8L/ 3.1L (Net this admission, +6.1L) Glycemic Control: NA Medications: Ceftriaxone 2g, day 4 Nexium 40mg IV BID Prednisilone 1mg/kg Labs: [...] dexmedetomidine (PRECEDEX) IV infusion orderable 1.4 mcg/kg/hr (01/11/22599) Tube feed 20 mL/hr at 01/09/22 1500 lactated ringers 150 mL/hr at 01/11/22 0600 acetaminophen 500 mg Q6H PRN LORazepam 2 mg Q2H PRN Objective Patient Vitals for the past 24 hrs: BP Temp Temp src Pulse Resp SpO2 O2 Device 01/11/22 0739 -- 97.7 F (36.5 C) Axillary -- -- -- -- 01/11/22599 122/53 -- -- 86 17 96 % [...] Gap Glu BUN Cr Ca Mg PO4 01/11/22115 133 3.4 101 25 10 149 5 0.43 Comment: Grossly icteric; may falsely decrease creatinine 8.0 01/10/22 1626 1.7 01/10/22 1626 134 3.5 99 22 17 165 4 0.60 Comment: Grossly icteric; may falsely decrease creatinine 8.6 01/10/22 0353 133 4.0 101 27 9 172 9 0.44 Comment: Grossly icteric; may falsely decrease creatinine 8.4 01/09/228 133 4.0 100 27 10 142 [...] Bili T Bili Alk Phos ALT AST 01/11/226 5.7 2.6 2.20 11.4 Comment: Elevated bilirubin may falsely lower creatinine 95 57 143 05/06/22 0353 6.0 2.7 2.60 11.1 Comment: Elevated [...] Mild intrahepatic biliary dilatation is noted. CXR 5 Impression: CorPak tube is in the antrum. [...] improving with IV hydration Hyperbilirubinemia worsening since [facility]. DDx favors hemolysis - could be from [...] No overt GIB. 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 I [...] Grossly icteric; may falsely decrease creatinine 8.4 01/09/228 133 4.0 100 27 10 142 7 0.41 Comment: Grossly icteric; may falsely decrease creatinine 8.1 Hepatic/Biliary/Pancreas T Prot Albumin D Bili T Bili Alk Phos ALT AST Amylase Lipase 01/11/22 0116 5.7 2.6 2.20 11.4 Comment: Elevated bilirubin may falsely lower creatinine 95 57 143 01/10/22 0353 6.0 2.7 2.60 11.1 Comment: Elevated bilirubin may falsely lower creatinine 87 54 147 01/09/22347 6.0 2.7 2.50 11.2 Comment: Elevated bilirubin may falsely lower creatinine 92 47 124 CBC/PT/INR WBC RBC Hgb Hct MCV RDW Plt PT aPTT INR 01/11/22 011 7.3 1.54 5.9 16.7 108 23.6 62 01/11/22 0116 2.16 01/10/22 1612 29 01/10/22 1131 5.4 1.79 6.8 19.1 107 23.8 93 01/10/22 035 4.7 1.80 6.8 19.2 106 23.4 58 01/10/22 0353 1.79 01/09/22 1722 3.7 1.76 6.4 18.4 105 23.7 56 01/09/22 0348 3.8 1.84 6.7 19.0 103 23.3 52 01/09/22 0348 1.94 01/08/22 1825 5.4 1.94 7.3 20.3 105 24.0 52 WBC/Diff Neutro% Segs% Bands% Lymphs% Monos% Eos% Basos% 01/11/22 011 73.3 12.7 13.3 0.2 0.5 01/10/22 1131 75.3 12.7 10.6 0.1 1.2 01/10/22 0353 72.9 15.4 9.7 0.6 1.4 01/09/22 1722 64.8 19.4 13.7 1.5 0.7 05/05/22 0348 65.0 20.2 12.5 1.4 0.9 01/08/22 [...] Director, Pulmonary, Critical Care and Sleep Medicine [facility] * Candido Lerner MD - 01/10/2022 12:31 PM EDT Images from the original note were not included. . Name: Will Anderson Encounter Date: 01/10/2022 PCP: No primary care provider on file. Heme-Onc: N/A Reason for consult: DANIEL Attending Provider Hematology/ Oncology Consult Daily Progress [...] and 1u FFP and was transfered to [facility] for further management. On (01/08) PM pt [...] Candido Lerner MD Hematology- Oncology PGY-V Pager [phone] Associated attestation - Rd Weaver MD - [...] Cl CO2 Gap Glu BUN Cr Ca 01/10/22352 133 4.0 101 27 9 172 9 [...] with GI attending, Dr. Haley Gary MD ([id number]) and Ulysses Solomon MD. Primary team updated via [employer] secure chat. We will sign off but please don't hesitate to reach out with questions or concerns. Abbey Alvarez MD Gastroenterology Fellow Personal Pager [phone] GI Consult Pager (nights and weekends) [phone] * Francisco Marino MD - 01/10/2022 9:13 AM EDT MICU ATTENDING NOTE FRANCISCO MARINO MD - PIN [id number] I saw and evaluated the patient. 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 Additional findings and notation: Will Anderson is a 36 year old male with PMH of EtOH dependence who presented with 2 days of L arm pain to [facility] ED. 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 Later the also had accidental chest wall trauma after he was working with [employer] and hit himself in the chest. Patient [...] M.D. Pulmonary, Critical Care and Sleep Medicine [facility] * Abhinav De La Vega DO - 01/10/2022 7:16 AM EDT Images from the original note were not included. [facility] Medical Intensive Care Unit Critical Care Progress Note Will Anderson 36 year old [id number] lbs MRN/Room: [id number]/CP3-139/1 Length of stay: 2 day(s) Summary 36M [...] was yellow x 1 day. While at [facility], patient was HDS, however noted with significant bru ising and edema of LUE. Reportedly, trauma surgery was consulted at [facility] and there was initially concern for compartment syndrome and fasciotomy was considered, but ultimately did not occur at the time. The trauma attending Dr. Du recommended orthopedic consultation upon arrival to the [facility] MICU. While at [facility] labs significant for indirect hyperbilirubinemia, and acute macrocytic anemia 6.9 requiring 1u pRBC and [address] Abd/Pelvis W/ Contrast showed liver cirrhosis and steatosis without CBD dilation. Received morphine, ceftriaxone, protonix, thiamine. Started on NS for rhabdo. Patient transferred to [facility] for tertiary center care. While in the [facility] MICU, Ortho following - request MR Nadia cohen for assessment of possible complete vspartial L [...] mg Daily Tube feed 20 mL/hr at 05/05/22 1500 dexmedetomidine (PRECEDEX) IV infusion orderable 1.4 mcg/kg/hr (01/10/22 07) lactated ringers 150 mL/hr at 01/10/22 0700 [...] 19.2 106 23.4 58 01/10/22 0353 1.79 05/05/22 1722 3.7 1.76 6.4 18.4 105 23.7 56 01/09/22 0348 3.8 1.84 6.7 19.0 103 23.3 52 01/09/22 0348 1.94 01/08/22 1825 5.4 1.94 7.3 20.3 105 24.0 52 01/08/22 0918 1.78 01/08/22 0853 5.7 1.96 7.2 20.1 102 24.2 51 WBC/Diff Neutro% Segs% Bands% Lymphs% Monos% Eos% Basos% 01/10/22352 72.9 15.4 9.7 0.6 1.4 01/09/22 172 64.8 19.4 13.7 1.5 0.7 01/09/22347 65.0 20.2 12.5 1.4 0.9 01/08/22 182 63.0 17.5 16.9 1.9 0.7 01/08/22 0853 64.5 17.9 15.4 1.4 0.8 Basic Metabolic Panel Na K Cl CO2 Gap Glu BUN Cr Ca Mg PO4 01/10/22352 133 4.0 101 27 9 172 9 0.44 Comment: Grossly icteric; may falsely decrease creatinine 8.4 01/09/22347 133 4.0 100 27 10 142 7 0.41 Comment: Grossly icteric; may falsely decrease creatinine 8.1 01/08/22 0853 1.7 01/08/22 08 129 3.7 95 22 16 91 5 [...] may falsely lower creatinine 87 54 147 01/09/22347 6.0 2.7 2.50 11.2 Comment: Elevated [...] 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 DDx favors hemolysis [...] No overt GIB. s/p 1u pRBC from , did not increment [...] (deescalation of antibiotics): Ceftriaxone Social- Dad Rich [phone] and mom Code Status: Full Code Dispo: MICU Plan is preliminary until discussed with attending Abhinav De La Vega DO PGY-2 [phone] (click to text page) * Bang Jameson [...] ATTENDING NOTE FRANCISCO MARINO MD - PIN [id number] I saw and evaluated the patient. 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 Additional findings and notation: Will Anderson is a 36 year old male with PMH of EtOH dependence who presented with 2 days of L arm pain to [facility] ED. Patient works on a [...] M.D. Pulmonary, Critical Care and Sleep Medicine [facility] * Nasrin Smith RN - 01/09/2022 [...] No BARRIERS TO PLAN OF CARE: No AUTOMOBILE ACCESSORIES INSTALLER IRENA Gomez DAY SHIFT RN Mary * Codi Thurman LSW - 01/09/2022 9:47 AM EDT Admission Screen Consult: SW aware of social concern per retail area manager screen for positive screen for low risk suicide and abuse. Pt is currently confused, restrained and unable to participate in conversation at this time. SW will follow up with pt to address as appropriate. Codi Thurman [facility], FILM LOADER Care Coordination Department * Ivy Chua MD - 01/09/2022 7:34 AM EDT Images from the original note were not included. [facility] Medical Intensive Care Unit Critical Care Progress Note Will Anderson 36 year old [id number] lbs MRN/Room: [id number]/CP3-139/1 Length of stay: 1 day(s) Summary 36M [...] skin was yellow x 1 day. At [facility], pt was HDS. Noted with significant bruising and edema of LUE. Reportedly, trauma surgery was consulted at [facility] and there was initially concern for compartment syndrome and fasciotomy was considered, but ultimately did not occur at the time. The trauma attending Dr. Du recommended orthopedic consultation upon arrival to the [facility] MICU. Labs significantfor indirect hyperbilirubinemia, acute macrocytic anemia 6.9. CT abd/pel with contrast showed livercirrhosis and steatosis; no CBD dilation. Received morphine, ceftriaxone, protonix, thiamine. Received 1u pRBC and 1u FFP at [facility]. Started on NS for rhabdo. Transferred to [facility] for tertiary center care. Ortho following - request MR Nadia elbow for assessment of possible complete vs [...] -- -- 86 13 98 % -- 05/04/22 1200 137/78 -- -- 72 11 96 [...] to Hospital (Active) Site Assessment WNL;Dressing intact 01/09/22399 Infusion Status Port #1 Infusing;Patent 05/05/22 0400 Number of days: 2 Peripheral IV [...] Basos% 01/09/22347 65.0 20.2 12.5 1.4 0.9 01/08/221824 63.0 17.5 16.9 1.9 0.7 01/08/22 0853 64.5 17.9 15.4 1.4 0.8 Basic Metabolic Panel Na K Cl CO2 Gap Glu BUN Cr Ca Mg PO4 05/05/22 0348 133 4.0 100 27 10 142 [...] Bili T Bili Alk Phos ALT AST 01/09/22 0348 6.0 2.7 2.50 11.2 Comment: [...] SINCE LAST CRITICAL CARE NOTE US ASCITES 01/08 IMPRESSION: No evidence of ascites. US RUQ US 01/08 IMPRESSION: 1. Cirrhosis with severe hepatic steatosis. 2. Focal asymmetric gallbladder wall thickening most suggestive of adenomyosis. Gallbladder sludge.No pericholecystic fluid or sonographic Galeano's sign to suggest acute cholecystitis. 3. Normal size common bile duct measuring 5 mm. Mild intrahepatic biliary dilatation is noted. CXR / Impression: CorPak tube is in the antrum. [...] -hyperbili worsening since . DDx favors hemolysis - [...] not reliable given recent pRBC infusion at [facility] -2 Large bore PIVs -transfuse Hb <7 -TSH elevated, but subsequent T4 wnl -- subclinical hypothyroidism. #Thrombocytopenia -as sequelae of cirrhosis Musculoskeletal #LUE swelling 2/2 trauma -ortho consulted, appreciate recs: no fx on plain films. Ortho has ordered MR Zuniga elbow -will f/u ortho recs -Tube Feeds [...] (deescalation of antibiotics): ctx Social- dad Rich [phone] and mom Code Status: Full Code Dispo: MICU Staffed with attending display specialist Dr. Marino. Ivy Chua MD Internal Medicine [...] n/a BARRIERS TO PLAN OF CARE: n/a AUTOMOBILE ACCESSORIES INSTALLER RN DAY SHIFT RN Chao * Lisa Macedo - 01/08/2022 1:33 PM EDT [facility] Spiritual Care Services Services provided for: Patient and Family Services initiated by: Staff Retail Area Manager Reason for services: Initial visit Narrative: Retail Area Manager knocked and entered patient's room to introduce self and share availability of spiritual care. Patient was sitting up in bed, awake and alert, visiting with his parents. Patient was polite and appreciative of visit but stated he had no spiritual care needs at this time. Interventions: Introduction of service Outcome: Patient aware of hospitality workers availability Plan of Care: Follow-up not anticipated Lisa Macedo MDiv Staff Retail Area Manager, (she/her/hers) Ext: [phone] Pager: [phone] documented in this [id number] Consult note* Keith Bolivar OT - 01/16/2022 2:24 PM EDT OCCUPATIONAL THERAPY PROGRESS SUMMARY Patient seen from 2:13 PM to 2:21 PM on 10B unit for 8 minute treatment. Partial over lap with PT SUBJECTIVE: Patient Subjective/Goals Do you know when I will be able to go home? OBJECTIVE: Pain: 6/10 Pain Relief Interventions Implemented: Positioning Appearance: Finishing tx session with PT upon arrival, jaundice, (L) UE swelling noted, hep lock IV Behavior: Cognition: A&Ox4 UE Status: (R) UE WFL (L) UE impaired: WBAT however significant swelling Provided patient education on AROM of (L) UE Self Care: Assistance Level NA Dep Max Mod Min CG CS DS [place] I Set-Up Cues Comment Feeding x Meal [...] With Patients permission ordered no equipment via Guesty Order. If any questions contact [facility] DME Provider at [phone]. 6 Clicks Daily Activity OT 01/16/2022 Help [...] Guard Assist/Supervision 4 - Non = Modified [place]/Independent ASSESSMENT: ASSESSMENT: Will Anderson is performing functional [...] NA = Not Assessed, I = Independent, [place] = Modified Independent, Sup = Supervised, Set up = Physical Assistance for Set-up Only, Min = Minimal Assistance, Mod = Moderate Assistance, Max = Max assistance; Dep = Dependent; AROM = Active Range of Motion;PROM=Passive Rangeof Motion; MMT = Manual Muscle Test; Shld= Shoulder; Add = Adduction; Abd = Abduction * ZuleikaYisel cristina, PT - 01/16/2022 2:20 PM EDT PHYSICAL [...] Dep Max Mod Min CG CS DS [place] I Comment Roll to right sidelying x [...] With Patients permission ordered no equipment via Guesty Order. If any questions contact [facility] DME Provider at [phone]. 6 Clicks Basic Mobility PT 01/16/2022 Difficulty [...] participation in therapy. PLAN: DC acute PT Yisel Zaragoza PT NA = Not Assessed, I = Independent, NY = Modified Independent, Sup = Supervised, Set [...] assisted pt in elevating his LUE via pleon pillow.. Mobility: NA Dep Max Mod Min CG CS DS [place] I Comment Rolling x Supine<>sit x Sitting trial x Transfer x Sit<>stand x Without an assistive device. Standing trial x x2 minutes in unsupported static standing. Ambulation x 400 feet without an assistive device. Pt demonstrated step-through gait pattern with improved steadiness with continued practice. Stairs x 12 stairs with unilateral rail. Pt negotiated stairs with a dtkg-uegp-cwnt pattern. Education: Instructed pt in roles of [...] Guard Assist/Supervision 4 - Non = Modified [place]/Independent Pt resting in recliner at end of [...] Clinical Specialist in Neurologic Physical Therapy Pager: [phone] AAROM = active assisted range of motion [...] UE = upper extremity * Mehreen Raza, MARIANN - 01/14/2022 1:06 PM EDT Images from the original note were not included. Nutrition Inpatient Assessment 5' 7 Admit wt 67.9 kg Current wt 62.0 kg BMI 21.41 No recent wt hx 2012 70.3 kg [...] Gap Glu BUN Cr Ca Mg PO4 01/14/22354 136 3.4 101 27 11 136 6 0.44 Comment: Grossly icteric; may falsely decrease creatinine 8.2 01/13/22 025 135 3.4 99 29 10 130 6 0.40 Comment: Grossly icteric; may falsely decrease creatinine 8.1 01/12/22 034 132 3.2 98 26 11 147 6 0.39 Comment: Grossly icteric; may falsely decrease creatinine 7.9 LFT's (last 3 years, up to 5 values) (Last 5 results in the past 3 years) T Prot Albumin D Bili T Bili Alk Phos ALT AST 01/14/22 0355 6.4 2.6 2.20 11.5 Comment: [...] hours) Glucose 01/14/22 0956 143 Comment: Notified RN CHEESE SUPERVISOR Follow Protocol 01/14/22 0355 154 Comment: Follow Protocol 01/13/22 2126 185 Comment: Notified IRENA NICHOLAS MD 01/13/22 [...] % Nutrition Focused Physical Exam Muscle loss: [place] region: mild depression Clavicle region: visible but [...] ml/h continuously. No ordered water TF intake 01/09 560 ml 6 1020 ml 7 1380 ml 8 1440 ml 01/13 1440 ml Est needs: current wt 0434-4433 kcal/d 30-35 kcal/kg 95 g pro/d 1.5 [...] as mentation allows Mehreen Raza MS RD [facility] Pager [phone] () Dietitian regional account manager (7a-7p) pager: [phone] * Cihoma Butler, KIYA - 01/14/2022 12:23 PM EDT [...] joint effusion. 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 Parents can assist 30/03 if needed. Patient lives in a 2 [...] wrapped, (R) hand bruising and dorsal edema, collection administrator, Pulse Oximeter, IV, Flexiseal, male External Catheter [...] Dep Max Mod Min CG CS DS [place] I Set-Up Comment Feeding x x +Corpak, [...] Dep Max Mod Min CG CS DS [place] I Set-Up Comment Toilet Transfers x Anticipate [...] improves Cognition: Orientation: Oriented to person Place: [facility] Current Date: 01/16/85 Asked pt to state year: 2021 Follows Commands: one step commands, requires occasional repeat of directions and easily distracted Attention: difficulty with divided attention, easily distracted during task and difficulty with alternating attention Memory: Impaired - recalls incident 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 [facility] at [phone]. 6 Clicks Daily Activity OT 01/14/2022 Help from [...] Guard Assist/Supervision 4 - Non = Modified [place]/Independent ASSESSMENT: Recommend further therapy services in an [...] NA = Not Assessed, I = Independent, [place] = Modified Independent, Sup = Supervised, Set up = Physical Assistance for Set-up Only, Min = Minimal Assistance, Mod = Moderate Assistance, Max = Max assistance; Dep = Dependent; AROM = Active Range of Motion;PROM=Passive Rangeof Motion; MMT = Manual Muscle Test; UB = Upper Body; LB = Lower Body * Fe Perrin, PT - 01/14/2022 11:35 AM EDT Associated [...] acute alcoholic hepatitis/Cirrhosis/Encp[ja;p[atju, suspected ETOH cirrhosis, indirect ynpxwcfyzclmizm8hqn, jaundice, elevated INR, thrombocytopenia, hyponatremia, rabdomyolysis Precautions: [...] B27 positive) 2003 Followed with Rheum at [facility] Open fracture of other and unspecified part [...] Patient Identified Goal(s):agreeable to work with therapy 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 If any questions contact [facility] DME Provider at [phone]. 6 Clicks Basic Mobility PT 01/14/2022 Difficulty [...] acute alcoholic hepatitis/Cirrhosis/Encp[ja;p[atju, suspected ETOH cirrhosis, indirect bmpycwjxcvvdjqy9dao, jaundice, elevated INR, thrombocytopenia, hyponatremia, rabdomyolysis Pt [...] NA = Not Assessed, I = Independent, [place] = Modified Independent, Sup = Supervised, Set [...] and 1u FFP and was transfered to [facility]- ICU for further management. On (01/08) PM pt noted to have severe EtOH w/d requiring precedex gtt. Anemia/tcp/coaguloapthy workup upon arrival was significant for elevated LDH: 369, Hapto<15, reitc:5.2%, Tb:11.2, direct: 2.5, Hb: 6.7, plt:52, INR:1.9, AYLIN: polyspecific+, IgG+ concerning for AIHA for which hematology was consulted. Additionally, 01/08 evening course c/b severe etoh withdrawal requiring precedex gtt. Pt is currentlyseverely altered and unable to provide any history. 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 On (01/08) PM [...] Candido Lerner MD Hematology- Oncology PGY-V Pager [phone] Associated attestation - Rd Weaver MD - 01/10/2022 2:24 PM EDT Teaching Physician Note: I saw and evaluated the patient. I personally obtained the ferraro and critical portions of the historyand physical exam. I reviewed the fellow/resident's documentation and discussed the patient with the fellow/resident. I agree with the fellow resident's medical decision making as documented in the llow/resident's note. * Mehreen Raza, RD - 01/09/2022 9:56 AM EDT Associated Order(s): NUTRITION NEW CONSULT Images from the original note were not included. Nutrition Inpatient Assessment 5' 7 Admit wt 67.9 kg BMI 23.45 No recent wt hx 2013 70.3 kg [...] on ice) and copper levels Mehreen Raza MS RD [facility] Pager [phone] (Thu-Ashley) Dietitian regional account manager (7a-7p) pager: [phone] * Robert Allen MD - 01/08/2022 5:01 [...] the entire UE, causing him present to [facility] ED. While in the ED, the pt was noticed to be jaundiced and was found to be in acute liver failure. He was transferred to [facility] MICU for escalation of care. Ortho was [...] Mcmullen DO and will be discussed with regional account manager ortho hand attending. Dr. Welch. Robert Allen MD HÉCTOR Orthopaedic Surgery, PGY 2 Pager [phone] After 5 pm and on weekends, please page the on-call resident ([phone]) with questions or concerns. 01/08/22 This consult was seen and staffed within 30 minutes of the initial consult. * Abbey Alvarez MD - 01/08/2022 9:22 AM EDT Associated Order(s): IP GASTROENTEROLOGY CONSULT Images from the original note were not included. Department of Gastroenterology and Hepatology Consult H&P Note GI Attending Physician: Dr. Ulysses Solomon MD Patient: Will Anderson Location: CP3-139/1 Reason for Consult: GI bleed, hyperbilirubinemia HPI Will Anderson is a 36 year old male with history notable for EtOH use disorder, tobacco use disorder for whom gastroenterology was consulted for GI bleed and hyperbilirubinemia. Patient is admitted to MICU as a transfer from [facility] where he initially presented for left arm [...] multi vitamin, zinc, thiamine and folate supplementation. CIWA assessors for alcohol withdrawal - Start daily [...] continue to follow with you. Personal Pager [phone] GI Consult Pager (nights and weekends) [phone] Abbey Alvarez MD Gastroenterology Fellow Division of Gastroenterology & Hepatology [facility] 01/08/22 Associated attestation - Ulysses Solomon [...] varices. Ulysses Solomon MD documented in this [id number] Hospital Discharge instructions* Instructions* Rosa Mensah, IRENA - 01/15/2022 Images from the original note [...] is right for you. Copyright Copyright 2020 [employer] and its affiliates and/or licensors. All rights [...] you to see other specialists, such as formerly [facility] health doctor, psychiatrist, social worker aide, or alcohol counselor. Stay sober. Get involved [...] irritable. Where can I learn more? National [place] of Alcohol Abuse and Alcoholism http://www.niaaa.nih.gov/alcohol-health/beveahqu-iqhfkts-umpxzwqnixe/alcohol-use -disorders National Health Service https://www.nhs.uk/conditions/alcohol-misuse/ Substance Abuse and Mental Health Services Administration https://www.samhsa.gov/find-help/national-helpline Last Reviewed Date 2017-12-02 Consumer Information Use [...] is right for you. Copyright Copyright 2020 [employer] and its affiliates and/or licensors. All rights reserved. Patient Education Alcohol Use ? When Is Drinking a Problem? The Basics Written by the doctors and editors at [employer] How do I know if I am [...] counselor (such as a psychologist, social worker aide, or psychiatrist) Take medicines Take part in [...] process is complete. This topic retrieved from [employer] on: Apr 04, 2020. Topic 09209 Version 9.0 Release: 28.4.6 - C28.294 2019 [employer] and/or its affiliates. All rights reserved. figure [...] and your health. Available at: http://rethinkingdrinking.niaaa.nih.gov. Graphic 91400 Version 1828.0 Consumer Information Use and Disclaimer [...] that is right for you.The use of [employer] content is governed by the [employer] Terms of Use. 2020 [employer] All rights reserved. Copyright 2020 [employer] and/or its affiliates. All rights reserved. Patient [...] weights; are a rock climber, skier, gymnast, bush and vine farmer fruit crops, or electrical control assembler; or do other sports What are the [...] playing sports. Where can I learn more? [employer] [employer] https://orthoinfo.aaos.org/en/diseases--conditions/fwnzhj-hssapf-tvfu-at-the-elb ow Last Reviewed Date 2018-06-01 Consumer Information [...] is right for you. Copyright Copyright 2020 [employer] and its affiliates and/or licensors. All rights [...] listed above. After business hours please call [facility] bow making machine operator at and ask for the orthopeadicresident regional account manager. For emergencies call [phone]. [facility] Upper Extremity and Hand Surgery MD Enrique Duffy MD Kyle Chepla, MD Andrea Gallup, COMMERCIAL CRABBER-RN DOCUMENT IMPROVEMENT SPECIALIST MD Ronen Michelle MD Bram Kaufman, MD Michael Keith, MD Adrienne Lee, MD Mary Grace Lenehan PAMD Michael Ramsey MD Kathryn Wozniak PACory Orthopaedic Surgery Nurse Line Orthopaedic Surgery Appointments [...] is right for you. Copyright Copyright 2020 [employer] and its affiliates and/or licensors. All rights [...] is right for you. Copyright Copyright 2020 [employer] and its affiliates and/or licensors. All rights reserved. Patient Education Autoimmune Hemolytic Anemia The Basics Written by the doctors and editors at [employer] What is autoimmune hemolytic anemia? -- Autoimmune [...] process is complete. This topic retrieved from [employer] on: Apr 04, 2020. Topic 79867 Version 9.0 Release: 28.4.6 - C28.294 2019 [employer] and/or its affiliates. All rights reserved. Consumer [...] that is right for you.The use of [employer] content is governed by the [employer] Terms of Use. 2020 [employer] All rights reserved. Copyright 2020 [employer] and/or its affiliates. All rights reserved. documented in this [id number] History and physical note* Francisco Marino MD - 01/08/2022 2:02 PM EDT [facility] FRANCISCO MARINO MD - PIN [phone] I saw and evaluated the patient. I [...] 2 days of L arm pain to [facility] ED. Patient works on a [...] M.D. Pulmonary, Critical Care and Sleep Medicine [facility] * Ivy Chua MD - 01/08/2022 8:50 AM EDT [facility] Medical Intensive Care Unit History and Physical Examination Will Anderson 36 year old 0 lbs MRN/Room: [id number]/CP3-139/1 Admit Date: 01/08/2022 : 1985 PCP Contact: [...] and examined upon arrival to MICU at [facility]. Pt states he was working on the [...] of aleve every morning for pain. At [facility], presenting VS were 36.3C/HR 105/RR18/BP 145/68/ SpO2 98% on room air. Ht 170.18cm,wt 75kg. received morphine, ceftriaxone, protonix, thiamine. Received 1u pRBC and 1u FFP at [facility]. Started on NS @ 150cc/h. Reportedly, trauma surgery was consulted at [facility] and there was initially concern for compartment syndrome and fasciotomy was considered, but ultimately did not occur at the time. The trauma attending Dr. Du recommended orthopedic consultation upon arrival to the [facility] MICU. Labs at OSH Alk phos 167 TBili 7.5 DBili 2.0 ALT 54 AST 160 Albumin 3.2 BMP Na 132 K 3.8 Cl 97 CO2 23 BUN 7 Cr < 0.3 Ca 8.3. AG = 12 Lipase 59 Lactate 3.3 --> 3.1 --> 2.4 --> 1.7 CBC WBC 7.4 / Hb 6.9 / Hct 19.3 / Plt 63 MCV 108 Neutrophils 44.8% Per [facility] ED note, 08/2020 Hb was 16.3 CK [...] to Hospital (Active) Site Assessment WNL;Dressing intact 01/08/22705 Infusion Status Port #1 Capped;Positive blood return 01/08/22705 Number of days: 1 Peripheral IV Access: 01/08/22 Right Hand Present on Arrival to Hospital (Active) Site Assessment WNL;Dressing intact 01/08/22705 Infusion Status Port #1 Capped;Positive blood return 01/08/22705 Number of days: 0 Physical Exam: Physical [...] Pyogen Culture None Fibrosis-4 Score:13.24 Imaging: Per [facility]ology read: CT abd/pel with con Impression: [...] ---> and please see images uploaded to [employer]. Resident's Assessment/Plan: Will Anderson is a 36 [...] for overt GIB -s/p 1u pRBC from [facility], did not increment appropriately - only 6.9 --> 7.2 after the unit of blood. -check cbc q12h -vitamin b12, folate -iron studies -2 Large bore PIVs -transfuse Hb <7 -TSH #Thrombocytopenia -as sequelae of cirrhosis Musculoskeletal #LUE swelling 2/2 trauma -ortho consulted, appreciate recs: no fx on plain films. Ortho has ordered MR Zuniga elbow -will f/u ortho recs -NPO for [...] Code Status: Full Code Staffed with attending display specialist Dr. Marino. Ivy Chua MD Internal Medicine PGY-3 documented in this [id number] Evaluation + Plan note Extracted from: Title:Admission [...] immediate surgery. Patient waiting for bed at [facility] Patient received vitamin K, 1 unit FFP's. [...] tertiary center. Patient waiting for bed at [facility] Acute pancreatitis CT abdomen showed mild inflammation [...] made to ensure accuracy, however, inadvertently computerized wood gluer mistakes may be present. Dr. Aldair Thorpe Hospitalist Orders: folic acid, 1 mg = [...] - Full Vital Signs Weight Addendum by Aldair Thorpe MD on January 07, 2022 18:44:52 EDT . [facility] Future Appointments Appointment Date:03/16/2023 11:00:00 AM Scheduled Provider:Teddy Hitchcock MD [facility] Appointment Type: Follow Up Visit (FT[facility] Future Appointments Appointment Date:03/30/2023 11:00:00 AM Scheduled Provider:Teddy Hitchcock MD Location[facility] Appointment Type:WC Follow Up Visit (FT[facility] Future Appointments Appointment Date:04/16/2023 12:00:00 PM Scheduled Provider: [facility] App[facility] Type:US Duplex Procedures (FT) Appointment Date:04/23/2023 10:15:00 AM Scheduled Provider:Teddy Hitchcock MD Location[facility] Appointment Type:WC Follow Up Visit (FT) Future Scheduled Tests Radiology* US PVR Lower EXT Complete Bilat 04/16/23 [facility] Future Appointments Appointment Date:04/23/2023 10:15:00 AM Scheduled Provider:Teddy Hitchcock MD Location[facility] Appointment Type:WC Follow Up Visit (FT[facility] Future Appointments Appointment Date:04/30/2023 08:30:00 AM Scheduled Provider: [facility] Appointment Type:WC Assessment (FT) Appointment Date:05/07/2023 11:30:00 AM Scheduled Provider:Teddy Hitchcock MD [facility] Appointment Type:WC [facility] (FT[facility] Future Appointments Appointment Date:05/07/2023 11:30:00 AM Scheduled Provider:Teddy Hitchcock MD [facility] Appointment Type:WC [facility] Future Appointments Appointment Date:05/14/2023 07:00:00 AM Scheduled Provider:Teddy Hitchcock MD Location[facility] Appointment Type:WC [facility] Up Visit (FT[facility] Future Appointments Appointment Date:05/21/2023 11:15:00 AM Scheduled Provider:Teddy Hitchcock MD [facility] Appointment Type:WC [facility] Future Appointments Appointment Date:06/04/2023 10:45:00 AM Scheduled Provider:Teddy Hitchcock MD [facility] Appointment Type:WC [facility] (FT[facility] Future Appointments Appointment Date:06/11/2023 01:00:00 PM Scheduled Provider: Location[facility] Appointment Type:WC Assessment (FT) Appointment Date:06/18/2023 10:00:00 AM Scheduled Provider:Teddy Hitchcock MD [facility] Appointment Type:WC [facility] (FT[facility] Future Appointments Appointment Date:06/25/2023 11:00:00 AM Scheduled Provider:Teddy Hitchcock MD [facility] Appointment Type:WC [facility] Future App[facility]ments Appointment Date:07/06/2023 10:30:00 AM Scheduled Provider:Teddy Hitchcock MD Location[facility] Appointment Type:WC [facility] (FT[facility] Plan [facility] Future Appointments Appointment Date:07/16/2023 09:30:00 AM Scheduled Provider:Teddy Hitchcock MD [facility] Appointment Type:WC Follow Up Visit (FT) [facility] Future Appointments Appointment Date:07/23/2023 09:00:00 AM Scheduled Provider:Teddy Hitchcock MD [facility] Appointment Type:WC Follow Up Visit (FT) Appointment Date:07/24/2023 07:40:00 AM Scheduled Provider:Lisa Padilla Location:[facility] Appointment Type:FM New [facility] - [facility] Future Appointments Appointment Date:07/24/2023 07:40:00 AM Scheduled Provider:Lisa Padilla Location:[facility] Appointment Type:FM New Patient - Adult Appointment Date:08/06/2023 09:30:00 AM Scheduled Provider:Teddy Hitchcock MD [facility] App[facility] Type:WC Follow Up Visit (FT) [facility] + Plan note Future Appointments Appointment Date:08/06/2023 09:30:00 AM Scheduled Provider:Teddy Hitchcock MD [facility] App[facility] Type:WC Follow Up Visit (FT) Appointment Date:08/21/2023 07:20:00 AM Scheduled Provider:Lisa Padilla Location:[facility] Appointment Type:FM Open Future Scheduled Tests Laboratory* HgbA1c 07/24/23 [...] Acid 07/24/23 * Vitamin B12 Level 07/24/23 [facility] Evaluation + Plan note Future Appointments Appointment Date:08/21/2023 07:20:00 AM Scheduled Provider:Lisa Padilla Location:[facility] Appointment Type: Open Appointment Date:09/01/2023 12:00:00 PM Scheduled Provider:Mario Evans MD Location:[facility] Appointment Type:[facility] New Patient Future Scheduled Tests Laboratory* HgbA1c [...] Acid 07/24/23 * Vitamin B12 Level 07/24/23 [facility] Future Appointments Appointment Date:09/01/2023 12:00:00 PM Scheduled Provider:Mario Evans MD Location:[facility] Appointment Type:[facility] New Patient Appointment Date:10/28/2023 09:00:00 AM Scheduled Provider:Lisa Padilla Location:[facility] Appointment Type: Open Future Scheduled Tests Laboratory* [...] Acid 07/24/23 * Vitamin B12 Level 07/24/23 [facility] Evaluation + Plan note Future Appointments Appointment Date:09/03/2023 09:00:00 AM Scheduled Provider: Location[facility] Appointment Type:US Abdominal/Pelvis () Appointment Date:10/28/2023 09:00:00 AM Scheduled Provider:Lisa Padilla Location:[facility] Appointment Type: Open Future Scheduled Tests Laboratory* HgbA1c 07/24/23 * [id number]-8-[id number] 09/01/23 * Ceruloplasmin 09/01/23 * Antimitochondrial Antibody, Quantitative 09/01/23 * Smooth Muscle Antibody Screen 09/01/23 * GEOVANNA w/Reflex if POS 09/01/23 * IgG, Quant. 09/01/23 * TIBC Calculated 07/24/23 * TIBC Calculated 09/01/23 * TSH With T4fr Reflex 07/24/23 * Acute Hepatitis A B C Panel 07/24/23 * Acute Hepatitis A B C Panel 09/01/23 * HCV Antibody RFX to Quant PCR 07/24/23 * HIV Screen 4th Generation wRfx 07/24/23 * Vitamin D 25 Hydroxy 07/24/23 * Alpha Fetoprotein Tumor Marker 09/01/23 * Ammonia Level 07/24/23 * Bilirubin Direct 09/01/23 * CBC w/ Auto Diff 07/24/23 * Comprehensive Metabolic Panel 07/24/23 * Comprehensive Metabolic Panel 09/01/23 * Ferritin 07/24/23 * Ferritin 09/01/23 * Folate Level 07/24/23 * GGT 07/24/23 * Iron Level 07/24/23 * Iron Level 09/01/23 * Lipase Level 07/24/23 * Lipid Panel 07/24/23 * Magnesium Level 07/24/23 * PT 07/24/23 * PT 09/01/23 * Phosphorus Level 07/24/23 * Reticulocyte Count 07/24/23 * Uric Acid 07/24/23 * Vitamin B12 Level 07/24/23 Radiology* US Liver 09/03/23 [facility] Digestive Health Evaluation + Plan note Future Appointments Appointment Date:10/28/2023 09:00:00 AM Scheduled Provider:Lisa Padilla Location:[facility] Appointment Type: Open Future Scheduled Tests Laboratory* HgbA1c 07/24/23 * Rxwia-4-Yhadusikrqz 09/01/23 * Ceruloplasmin 09/01/23 * Antimitochondrial Antibody, Quantitative 09/01/23 * Smooth Muscle Antibody Screen 09/01/23 * GEOVANNA w/Reflex if POS 09/01/23 * IgG, Quant. 09/01/23 * TIBC Calculated 07/24/23 * TIBC Calculated 09/01/23 * TSH With T4fr Reflex 07/24/23 * Acute Hepatitis A B C Panel 07/24/23 * Acute Hepatitis A B C Panel 09/01/23 * HCV Antibody RFX to Quant PCR 07/24/23 * HIV Screen 4th Generation wRfx 07/24/23 * Vitamin D 25 Hydroxy 07/24/23 * Alpha Fetoprotein Tumor Marker 09/01/23 * Ammonia Level 07/24/23 * Bilirubin Direct 09/01/23 * CBC w/ Auto Diff 07/24/23 * Comprehensive Metabolic Panel 07/24/23 * Comprehensive Metabolic Panel 09/01/23 * Ferritin 07/24/23 * Ferritin 09/01/23 * Folate Level 07/24/23 * GGT 07/24/23 * Iron Level 07/24/23 * Iron Level 09/01/23 * Lipase Level 07/24/23 * Lipid Panel 07/24/23 * Magnesium Level 07/24/23 * PT 07/24/23 * PT 09/01/23 * Phosphorus Level 07/24/23 * Reticulocyte Count 07/24/23 * Uric Acid 07/24/23 * Vitamin B12 Level 07/24/23 [facility] Diagnosis Hemolytic anemia (HCC)- Primary Acquired [...] use of [facility] Iron deficiency anemia, unspecified iron deficiency anemia type Alcoholic cirrhosis, unspecified whether ascites present (HCC) [facility] N[facility]ative - Reported* Type Description Date Medical History anxiety Medical History LIVER ISSUES Surgical History fx jaw Hospitalization History LIVER ISSUES 2021 Z[facility] Other Hospital course Narrative No data available for this section [facility] Discharge instructions No data available for this section [facility] No data available for this section [facility] (narrative)* Tests/Procedures (Routine) - Authorized Specialty Diagnoses / Procedures Referred By Contact Referred To Contact Cardiovascular Testing Diagnoses Bilateral swelling of feet and ankles Tanvir Black MD [address] [facility] [place] [address] [facility] CARD NON INVASIVE [address] [place] [address] [place] [address] Referral ID Status Reason Start Date Expiration Date V isits Requested Visits Authorized [id number] Authorized 03/13/2022 03/13/2023 1 1 Scheduling Instructions [...] call the [facility] at [phone] ([phone]) if you are unable to keep [...] SpO2 100 %. Room/bed info not found @[email or web address] Narr[facility]* Auth/Cert Specialty Diagnoses / Procedures Referred By Taya hope Referred To Contact Case Management Diagnoses Acute Liver Failure Procedures [facility] [address] [place], [place] [address] [address] Phone: [phone] [facility] [address] [place] [address] Phone: [phone] Referral ID Status Reason Start Date Expiration Date Visits Re quested Visits Authorized [id number] 3 3 [facility] for visit Narrative* Tests/Procedures (Routine) - Closed Specialty Diagnoses / Procedures Referred By Contact Referred To Contact Cardiovascular Testing Diagnoses Bilateral swelling of feet and ankles Tanvir Black MD [address] [place], [place] [id number] MHS CARD NON INVASIVE [address] [place], [place] [address] [id number] Referral ID Status Reason Start Date Expiration Date Visits Re quested Visits Authorized [id number] Closed 03/13/2022 03/13/2023 1 1 [facility] Reason for Referral Specialty Diagnoses / Procedures Referred By Contac t Referred To Contact Radiology Diagnoses Rib pain Procedures XR RIBS LT UNILAT W/PA CHEST Theo Burks MD [address] [place] [address] [place] [address] S [facility] [address] [place] [address] [place] [address] Referral ID Status Reason Start Date Expiration Date V isits Requested Visits Authorized [id number] Authorized 12/15/2022 12/15/2023 1 1 Specialty Diagnoses / Procedures Referred By Contac t Referred To Contact Diagnoses Rib pain Theo Burks MD [address] [place] [address] [place] [address] Referral ID Status Reason Start Date Expiration Date V isits Requested Visits Authorized [id number] Pending Review 3 3 Specialty Diagnoses / Procedures Referred By Contac t Referred To Contact Diagnoses Iron deficiency anemia, unspecified iron deficiency anemia type Alcoholic cirrhosis, unspecified whether ascites present (HCC) Alcoholic cirrhosis of liver without ascites (HCC) Tanvir Black MD [address] [place] [address] [place] [address] Referral ID Status Reason Start Date Expiration Date Visits Re quested Visits Authorized [id number] Closed 3 3 Specialty Diagnoses / Procedures Referred By Contac t Referred To Contact Radiology Diagnoses Alcoholic cirrhosis of liver without ascites (HCC) Procedures XA TRANSJUGULAR LIVER BIOPSY (CHRISTIANO) XA INTERVENTIONAL RADIOLOGY PROCEDURE SERVICE Marcello Ibanez MD [address] [place] [address] [facility] [address] [place] [address] Referral ID Status Reason Start Date Expiration Date V isits Requested Visits Authorized [id number] Authorized 10/27/2022 10/27/2023 1 1 Specialty Diagnoses / Procedures Referred By Contac t Referred To Contact Diagnoses Urinary tract infection without hematuria, site unspecified Leg swelling Tanvir Black MD [address] [place] [address] [place] [address] [facility] [address] [place] [address] Referral ID Status Reason Start Date Expiration Date V isits Requested Visits Authorized [id number] Authorized 08/21/2022 02/17/2023 3 3 Scheduling Instructions Please call Internal Medicine at to schedule an appointment. Specialty Diagnoses / Procedures Referred By Contac t Referred To Contact Radiology Diagnoses Lower extremity edema Procedures US LEG RIGHT VENOUS + DOPPLER Tanvir Black MD [address] [place] [address] [place] [address] S [facility] [address] [place] [address] Referral ID Status Reason Start Date Expiration Date Visits Re quested Visits Authorized [id number] Closed 08/14/2022 08/14/2023 1 1 Specialty Diagnoses / Procedures Referred By Contac t Referred To Contact Radiology Diagnoses Iron deficiency anemia, unspecified iron deficiency anemia type Alcoholic cirrhosis, unspecified whether ascites present (HCC) Procedures US HEP PORT SPLEN VEIN + DOPPLER Maria C Faustin, COMMERCIAL CRABBER-RN DOCUMENT IMPROVEMENT SPECIALIST [address] [place] [address] [place] [address] S [facility] [address] [place] [address] Referral ID Status Reason Start Date Expiration Date V isits Requested Visits Authorized [id number] Authorized 08/14/2022 08/14/2023 1 1 Specialty Diagnoses / Procedures Referred By Contac t Referred To Contact Radiology Diagnoses Iron deficiency anemia, unspecified iron deficiency anemia type Alcoholic cirrhosis, unspecified whether ascites present (HCC) Procedures US LIVER/GALL BLADDER/PANCREAS Maria C Faustin, COMMERCIAL CRABBER-RN DOCUMENT IMPROVEMENT SPECIALIST [address] [place] [address] [address] [place] [id number] S [facility] [address] [place] [address] Referral ID Status Reason Start Date Expiration Date V isits Requested Visits Authorized [id number] Authorized 08/14/2022 08/14/2023 1 1 Specialty Diagnoses / Procedures Referred By Contac t Referred To Contact Afua Umanzor MD [address] [place] [address] Referral ID Status Reason Start Date Expiration Date V isits Requested Visits Authorized [id number] Pending Review 3 3 Referral ID Status Reason Start Date Expiration Date V isits Requested Visits Authorized [id number] Pending Review 3 3 Specialty Diagnoses / Procedures Referred By Contac t Referred To Contact Gastroenterology Diagnoses Alcoholic cirrhosis of liver without ascites (HCC) Afua Umanzor MD [address] [place] [address] [facility] [address] [place] [address] Referral ID Status Reason Start Date Expiration Date V isits Requested Visits Authorized [id number] Authorized 01/17/2022 01/17/2023 3 3 Scheduling Instructions Please call the Liver Clinic at to schedule an appointment if one was not made for you today. Question Answer Reason for Referral: Cirrhosis [31] Which Liver clinic should the patient be scheduled in? 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 Specialty Diagnoses / Procedures Referred By Taya t Referred To Contact Diagnoses Tear of left biceps muscle, initial encounter Afua Umanzor MD [address] [place] [address] S ORTHO HAND [address] [place] [address] Referral ID Status Reason Start Date Expiration Date V isits Requested Visits Authorized [id number] Authorized 01/17/2022 01/17/2023 3 3 Scheduling Instructions Please call the [facility] at [phone] to schedule an appointment if one was not made for you today. Question Answer Adult patient to be evaluated for: Elbow - Bicep Tear - Left [5] Comments No prior visits in PM&R No prior visits in Orthopedics Specialty Diagnoses / Procedures Referred By Contac t Referred To Contact Radiology Procedures US HEP PORT SPLEN VEIN + DOPPLER Ccp [address] [place] [address] [facility] [address] [place] [address] Referral ID Status Reason Start Date Expiration Date Visits Re quested Visits Authorized [id number] Closed 01/10/2022 01/10/2023 1 1 Specialty Diagnoses / Procedures Referred By Contac t Referred To Contact Radiology Procedures US SPLEEN US SPLEEN Ccp [address] [place] [address] [facility] [address] [place] [address] Referral ID Status Reason Start Date Expiration Date Visits Re quested Visits Authorized [id number] Closed 01/09/2022 01/09/2023 1 1 Specialty Diagnoses / Procedures Referred By Contac t Referred To Contact Radiology Procedures XR ABDOMEN 1 VIEW AP Ccp [address] [place] [address] [facility] [address] [place] [address] [place] [address] Referral ID Status Reason Start Date Expiration Date Visits Re quested Visits Authorized [id number] Closed 01/09/2022 01/09/2023 1 1 Specialty Diagnoses / Procedures Referred By Contac t Referred To Contact Radiology Procedures XR ORBITS Ccp [address] [place] [address] [facility] [address] [place] [address] [place] [address] Referral ID Status Reason Start Date Expiration Date Visits Re quested Visits Authorized [id number] Closed 01/08/2022 01/08/2023 1 1 Specialty Diagnoses / Procedures Referred By Contac t Referred To Contact Radiology Procedures US ASCITES SURVEY 4 QUADRANTS Ccp [address] [place] [address] [facility] [address] [place] [address] Referral ID Status Reason Start Date Expiration Date Visits Re quested Visits Authorized [id number] Closed 01/08/2022 01/08/2023 1 1 Specialty Diagnoses / Procedures Referred By Contac t Referred To Contact Radiology Procedures US LIVER/GALL BLADDER/PANCREAS Ccp [address] [place] [address] [facility] [address] [place] [address] Referral ID Status Reason Start Date Expiration Date Visits Re quested Visits Authorized [id number] Closed 01/08/2022 01/08/2023 1 1 Specialty Diagnoses / Procedures Referred By Contac t Referred To Contact Radiology Procedures XRAY CHEST IMAGE IMPORT(CHRISTIANO) Ivy Chua MD [address] [place] [address] [facility] [address] [place] [address] [place] [id number] Referral ID Status Reason Start Date Expiration Date Visits Re quested Visits Authorized [id number] Closed 01/08/2022 01/08/2023 1 1 Specialty Diagnoses / Procedures Referred By Contac t Referred To Contact Radiology Procedures CT BODY IMAGE IMPORT(CHRISTIANO) DOWNLOAD POWERSHARE IMAGES TO [facility] Ivy Chua MD [address] [place], [place] [phone] [facility] [address] [place] [address] [place] [phone] Referral ID Status Reason Start Date Expiration Date Visits Re quested Visits Authorized [id number] Closed 01/08/2022 01/08/2023 1 1 Specialty Diagnoses / Procedures Referred By Contac t Referred To Contact Radiology Procedures XR HUMERUS LEFT Ccp [address] [place] [id number] [facility] [address] [place] [address] Dr [place] [phone] Referral ID Status Reason Start Date Expiration Date Visits Re quested Visits Authorized [id number] Closed 01/08/2022 01/08/2023 1 1 Specialty Diagnoses / Procedures Referred By Taya t Referred To Contact Radiology Procedures XR ELBOW LEFT MINIMUM 3 VIEWS Ccp [address] [facility] [place] [phone] [facility] [address] [place] [address] Referral ID Status Reason Start Date Expiration Date Visits Re quested Visits Authorized [id number] Closed 01/08/2022 01/08/2023 1 1 Advance Directives [...] dose on Thu01/09/22 at 1400, Until Discontinued 1446 (Patch Removal - Provider: Chrystal Pritchett LPN)1449 (Patch Applied - Provider: Chrystal Pritchett LPN) copper chloride 2 mg in sodium chloride 0.9 % 250 mL iv infusion 2 mg, Intravenous, DAILY, 5 doses, First dose on Thu01/14/22 at 1400, Last dose on Thu01/18/22 at 0900, at 125 mL/hr 1002 (IV New Bag - Provider: Teddy Maher Rn, RN) 0929 (IV New Bag - Provider: Chrystal Pritchett LPN) 0900 (Hold/Not Given - Provider: Ana Salas RN - Reason: Medication unavailable)1118 (IV New Bag - Provider: Ana Salas, IRENA) diclofenac (VOLTAREN) 1 % topical GEL 2 g, Topical, 4 TIMES DAILY, First dose on Thu01/15/22 at 1700, Until Discontinued 1700 (Hold/Not Given - Provider: Teddy Maher Rn, RN - Reason: Medication unavailable)1752 (Given - Provider: Teddy Maher Rn, RN - Comment: not on unit)2100 (Given - Provider: Farheen Dudley RN) 0900 (Hold/Not Given - Provider: Chrystal Pritchett LPN - Reason: Medication unavailable)1300 (Given - Provider: Chrystal Pritchett LPN)1805 (Given - Provider: Kristen Gan RN)2210 (Given - Provider: Kristen Gan RN) 0900 (Hold/Not Given - Provider: Ana Salas, IRENA - Reason: Patient refused)1300 (Hold/Not Given - Provider: Ana Salas, RN - Reason: Patient refused)1700 (Hold/Not Given [...] Gan RN) 1105 (Given - Provider: Ana Salas, RN)1649 (Given - Provider: Rosa Mensah, IRENA) folic acid 1 MG tablet 1 mg, Oral, DAILY, First dose on Thu01/16/22 at 0900, Until Discontinued 0919 (Given - Provider: Chrystal Pritchett LPN) 1105 (Given - Provider: Ana Salas, IRENA) insulin lispro (HumaLOG) 100 UNIT/ML injection (CANCELED) [...] DAILY, First dose (after last modification) on Thu01/09/22 at 2100, Until Discontinued 1002 (Given - Provider: Teddy Maher Rn, RN) lactulose 20 g/30 mL oral solution 20 g, Oral, 2 TIMES DAILY, First dose (after last modification) on Thu01/15/22 at 2100, Until Discontinued 2100 (Given - Provider: Farheen Dudley RN) 0919 (Given - Provider: Chrystal Pritchett LPN)2208 (Given - Provider: Kristen Gan RN) 1105 (Given - Provider: Ana Salas RN)2100 (Due) multivitamins with minerals (CEROVITE) oral liquid [...] at 0600 0545 (Given - Provider: Obdulia Callahan RN) prednisoLONE (ORAPRED) 15 MG/5ML oral solution 70 mg, Oral, DAILY, First dose on 01/11/22 at 0900, Until Discontinued 1004 (Hold/Not Given - Provider: Teddy Maher Rn, RN - Reason: Medication unavailable)1219 (Given - Provider: Teddy Maher Rn, RN) 1233 (Given - Provider: Chrystal Pritchett LPN) 0900 (Hold/Not Given - Provider: Ana Salas RN - Reason: Medication unavailable)1247 (Given - Provider: Ana Salas RN) rifaximin (XIFAXAN) tablet 550 mg, Oral, 2 TIMES DAILY, First dose (after last modification) on 01/12/22 at 2100, Until Discontinued 1002 (Given - Provider: Teddy Maher Rn, RN)2100 (Given - Provider: Farheen Dudley RN) 0938 (Given - Provider: Chrystal Pritchett LPN)2208 (Given - Provider: Kristen Gan RN) 1110 (Given - Provider: Ana Salas RN)2100 (Due) tramadol (ULTRAM) tablet (COMPLETED) 50 mg, Oral, ONCE, 1 dose, On Thu01/15/22 at 1800 1745 (Given - Provider: Teddy Maher Rn, RN) vitamin B-1 (THIAMINE) tablet 100 mg, Oral, DAILY, First dose on Rachel 01/16/22 at 0900, Until Discontinued 0918 (Given - Provider: Chrystal Pritchett LPN) 1105 (Given - Provider: Ana Salas, IRENA) vitamin B-12 (CYANOCOBALAMIN) tablet 500 mcg, Oral, [...] LPN)2208 (Given - Provider: Kristen Gan RN) Linked Groups Order Group 1: dextrose 10 [...] Oral, STAT, 1 dose, On Thu08/15/22 at 1452 1502 (Given - Provid er: Mercedes Zapata RN) Reason for Visit (unrecogniz ed section and content) Reason Onset Date Comments Prior Authorization 01/21/2022 Reason Onset Date Comments Specialty Pharmacy Referral 02/11/2022 [facility] referral- no PA needed Specialty Diagnoses / Procedures Referred By Contac t Referred To Contact Hematology Diagnoses 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) Thrombocytopenia (HCC) Afua Umanzor MD [address] [place] [address] [facility] [address] [place] [address] Referral ID Status Reason Start Date Expiration Date V isits Requested Visits Authorized [id number] Authorized 01/17/2022 01/17/2023 3 3 Reason Comments Blood test Reason Comments Monitoring/follow-up Fatigue nausea and vomiting Reason Comments AIHA On cellcept Cirrhosis/other liver disease Reason Comments New patient, to establish relationship Specialty Diagnoses / Procedures Referred By Contac t Referred To Contact Gastroenterology Diagnoses Alcoholic cirrhosis of liver without ascites (HCC) Tanvir Black MD [address] [place] [address] [facility] [address] [place] [address] Referral ID Status Reason Start Date Expiration Date V isits Requested Visits Authorized [id number] Authorized 05/06/2022 05/06/2023 3 3 Reason Comments [...] Comments follow up [facility] an [facility]. Reason Comments NEW PATIENT/TEACHING Reason Comments AIHA on MMF Reason Onset Date Comments Refill 02/09/2023 Reason Onset Date Comments Left Message To Call Back 02/27/2023 Reason Onset Date Comments Refill 03/06/2023 Reason Onset Date Comments Prior Authorization 03/06/2023 Reason Onset Date Comments Refill 03/22/2023 Reason Onset Date Comments Refill 07/13/2023 Care Team (unrecognized sect ion and content) Parts Identification Technician Relationship Specialty Start Date End Date Theo Burks MD [address] [place] [address] [address] [place], [place] [id number] PCP - General Family Medicine 08/25/22 Parts Identification Technician Relationship Specialty Start Date End Date Theo Burks MD [address] [place] [address] [place] [address] PCP - General Family Medicine 08/25/22 Parts Identification Technician Relationship Specialty Start Date End Date Theo Burks MD [address] [place] [address] [place] [address] PCP - General Family Medicine 08/25/22 Parts Identification Technician Relationship Specialty Start Date End Date Theo Burks MD [address] [place] [address] [place] [address] PCP - General Family Medicine 08/25/22 Parts Identification Technician Relationship Specialty Start Date End Date Theo Burks MD [address] [place] [address] [place] [address] PCP - General Family Medicine 08/25/22 Abbey Alvarez MD [address] [place] [address] [place] [address] Fellow Gastroenterology 09/13/22 Maria C Faustin, COMMERCIAL CRABBER-RN DOCUMENT IMPROVEMENT SPECIALIST [address] [place] [address] [place] [address] CHEESE SUPERVISOR Gastroenterology 09/13/22 Parts Identification Technician Relationship Specialty Start Date End Date Theo Burks MD [address] [place] [address] [place] [address] PCP - General Family Medicine 08/25/22 Abbey Alvarez MD [address] [place] [address] [place] [address] Fellow Gastroenterology 09/13/22 Maria C Faustin, COMMERCIAL CRABBER-RN DOCUMENT IMPROVEMENT SPECIALIST [address] [place] [address] [place] [address] CHEESE SUPERVISOR Gastroenterology 09/13/22 Parts Identification Technician Relationship Specialty Start Date End Date Theo Burks MD [address] [place] [address] [place] [address] PCP - General Family Medicine 08/25/22 Abbey Alvarez MD [address] [place] [address] [place] [address] Fellow Gastroenterology 09/13/22 Maria C Faustin, COMMERCIAL CRABBER-RN DOCUMENT IMPROVEMENT SPECIALIST [address] [place] [address] [place] [address] CHEESE SUPERVISOR Gastroenterology 09/13/22 Parts Identification Technician Relationship Specialty Start Date End Date Theo Burks MD [address] [place] [address] [place] [address] PCP - General Family Medicine 08/25/22 Abbey Alvarez MD [address] [place] [address] [place] [address] Fellow Gastroenterology 09/13/22 Maria C Faustin, COMMERCIAL CRABBER-RN DOCUMENT IMPROVEMENT SPECIALIST [address] [place] [address] [place] [address] CHEESE SUPERVISOR Gastroenterology 09/13/22 Parts Identification Technician Relationship Specialty Start Date End Date Theo Burks MD [address] [place] [address] [place] [address] PCP - General Family Medicine 08/25/22 Abbey Alvarez MD [address] [place] [address] [place] [address] Fellow Gastroenterology 09/13/22 Maria C Faustin, COMMERCIAL CRABBER-RN DOCUMENT IMPROVEMENT SPECIALIST [address] [place] [address] [place] [address] CHEESE SUPERVISOR Gastroenterology 09/13/22 Parts Identification Technician Relationship Specialty Start Date End Date Theo Burks MD [address] [place] [address] [place] [address] PCP - General Family Medicine 08/25/22 Abbey Alvarez MD [address] [place] [address] [place] [address] Fellow Gastroenterology 09/13/22 Maria C Faustin, COMMERCIAL CRABBER-RN DOCUMENT IMPROVEMENT SPECIALIST [address] [place] [address] [place] [address] CHEESE SUPERVISOR Gastroenterology 09/13/22 Parts Identification Technician Relationship Specialty Start Date End Date Theo Burks MD [address] [place] [address] [place] [address] PCP - General Family Medicine 08/25/22 Abbey Alvarez MD [address] [place] [address] [place] [address] Fellow Gastroenterology 09/13/22 Maria C Faustin, COMMERCIAL CRABBER-RN DOCUMENT IMPROVEMENT SPECIALIST [address] [place] [address] [place] [address] CHEESE SUPERVISOR Gastroenterology 09/13/22 Parts Identification Technician Relationship Specialty Start Date End Date Theo Burks MD [address] [place] [address] [place] [address] PCP - General Family Medicine 08/25/22 Abbey Alvarez MD [address] [place] [address] [place] [address] Fellow Gastroenterology 09/13/22 Maria C Faustin, COMMERCIAL CRABBER-RN DOCUMENT IMPROVEMENT SPECIALIST 88 [place] [address] [place] [address] CHEESE SUPERVISOR Gastroenterology 09/13/22 Parts Identification Technician Relationship Specialty Start Date End Date Theo Burks MD [address] [place] [address] [place] [address] PCP - General Family Medicine 08/25/22 Abbey Alvarez MD [address] [place] [address] [place] [address] Fellow Gastroenterology 09/13/22 Maria C Faustin, COMMERCIAL CRABBER-RN DOCUMENT IMPROVEMENT SPECIALIST [address] [place] [address] [place] [address] CHEESE SUPERVISOR Gastroenterology 09/13/22 Parts Identification Technician Relationship Specialty Start Date End Date Theo Burks MD [address] [place] [address] [place] [address] PCP - General Family Medicine 08/25/22 Abbey Alvarez MD [address] [place] [address] [place] [address] Fellow Gastroenterology 09/13/22 Maria C Faustin, COMMERCIAL CRABBER-RN DOCUMENT IMPROVEMENT SPECIALIST [address] [place] [address] [place] [address] CHEESE SUPERVISOR Gastroenterology 09/13/22 Marcello Ibanez MD [address] [place] [address] [place] [address] Fellow Gastroenterology 11/08/22 Parts Identification Technician Relationship Specialty Start Date End Date Theo Burks MD [address] [place] [address] [place] [address] PCP - General Family Medicine 08/25/22 Abbey Alvarez MD [address] [place] [address] [place] [address] Fellow Gastroenterology 09/13/22 Maria C Faustin APRN-RN DOCUMENT IMPROVEMENT SPECIALIST [address] [place] [address] [place] [address] CHEESE SUPERVISOR Gastroenterology 09/13/22 Marcello Ibanez MD [address] [place] [address] Fellow Gastroenterology 11/08/22 Parts Identification Technician Relationship Specialty Start Date End Date Theo Burks MD [address] [place] [address] [place] [address] PCP - General Family Medicine 08/25/22 Abbey Alvarez MD [address] [place] [address] [place] [address] Fellow Gastroenterology 09/13/22 Maria C Faustin APRN-RN DOCUMENT IMPROVEMENT SPECIALIST [address] [place] [address] [place] [address] CHEESE SUPERVISOR Gastroenterology 09/13/22 Marcello Ibanez MD [address] [place] [address] Fellow Gastroenterology 11/08/22 Parts Identification Technician Relationship Specialty Start Date End Date Theo Burks MD [address] [place] [address] [place] [address] PCP - General Family Medicine 08/25/22 Abbey Alvarez MD [address] [place] [address] [place] [address] Fellow Gastroenterology 09/13/22 Maria C Faustin APRN-RN DOCUMENT IMPROVEMENT SPECIALIST [address] [place] [address] [place] [address] CHEESE SUPERVISOR Gastroenterology 09/13/22 Marcello Ibanez MD [address] [place] [address] Fellow Gastroenterology 11/08/22 Parts Identification Technician Relationship Specialty Start Date End Date Theo Burks MD [address] [place] [address] [place] [address] PCP - General Family Medicine 08/25/22 Abbey Alvarez MD [address] [place] [address] [place] [address] Fellow Gastroenterology 09/13/22 Maria C Faustin, COMMERCIAL CRABBER-RN DOCUMENT IMPROVEMENT SPECIALIST [address] [place] [address] [place] [address] CHEESE SUPERVISOR Gastroenterology 09/13/22 Marcello Ibanez MD [address] [place] [address] Fellow Gastroenterology 11/08/22 Parts Identification Technician Relationship Specialty Start Date End Date Theo Burks MD [address] [place] [address] [place] [address] PCP - General Family Medicine 08/25/22 Abbey Alvarez MD [address] [place] [address] [place] [address] Fellow Gastroenterology 09/13/22 Maria C Faustin, COMMERCIAL CRABBER-RN DOCUMENT IMPROVEMENT SPECIALIST [address] [place] [address] [place] [address] CHEESE SUPERVISOR Gastroenterology 09/13/22 Marcello Ibanez MD [address] [place] [address] Fellow Gastroenterology 11/08/22 Parts Identification Technician Relationship Specialty Start Date End Date Theo Burks MD [address] [place] [address] [place] [address] PCP - General Family Medicine 08/25/22 Abbey Alvarez MD [address] [place] [address] [place] [address] Fellow Gastroenterology 09/13/22 Maria C Faustin APRN-RN DOCUMENT IMPROVEMENT SPECIALIST [address] [place] [address] [place] [address] CHEESE SUPERVISOR Gastroenterology 09/13/22 Marclelo Ibanez MD [address] [place] [address] Fellow Gastroenterology 11/08/22 Parts Identification Technician Relationship Specialty Start Date End Date Theo Burks MD [address] [place] [address] [place] [address] PCP - General Family Medicine 08/25/22 Abbey Alvarez MD [address] [place] [address] [place] [address] Fellow Gastroenterology 09/13/22 Maria C Faustin, LIBAN-RN DOCUMENT IMPROVEMENT SPECIALIST [address] [place] [address] [place] [address] CHEESE SUPERVISOR Gastroenterology 09/13/22 Marcello Ibanez MD [address] [place] [address] Fellow Gastroenterology 11/08/22 Parts Identification Technician Relationship Specialty Start Date End Date Theo Burks MD [address] [place] [address] [place] [address] PCP - General Family Medicine 08/25/22 Abbey Alvarez MD [address] [place] [address] [place] [address] Fellow Gastroenterology 09/13/22 Maria C Faustin APRN-RN DOCUMENT IMPROVEMENT SPECIALIST [address] [place] [address] [place] [address] CHEESE SUPERVISOR Gastroenterology 09/13/22 Marcello Ibanez MD [address] [place] [address] Fellow Gastroenterology 11/08/22 Parts Identification Technician Relationship Specialty Start Date End Date Theo Burks MD [address] [place] [address] [place] [address] PCP - General Family Medicine 08/25/22 Abbey Alvarez MD [address] [place] [address] [place] [address] Fellow Gastroenterology 09/13/22 Maria C Faustin APRN-RN DOCUMENT IMPROVEMENT SPECIALIST [address] [place] [address] [place] [address] CHEESE SUPERVISOR Gastroenterology 09/13/22 Marcello Ibanez MD [address] [place] [address] Fellow Gastroenterology 11/08/22 Parts Identification Technician Relationship Specialty Start Date End Date Theo Burks MD [address] [place] [address] [place] [address] PCP - General Family Medicine 08/25/22 Abbey Alvarez MD [address] [place] [address] [place] [address] Fellow Gastroenterology 09/13/22 Maria C Faustin APRN-RN DOCUMENT IMPROVEMENT SPECIALIST [address] [place] [address] [place] [address] CHEESE SUPERVISOR Gastroenterology 09/13/22 Marcello Ibanez MD [address] [place] [address] Fellow Gastroenterology 11/08/22 Parts Identification Technician Relationship Specialty Start Date End Date Theo Burks MD [address] [place] [address] [place] [address] PCP - General Family Medicine 08/25/22 Abbey Alvarez MD [address] [place] [address] [place] [address] Fellow Gastroenterology 09/13/22 Maria C Faustin APRN-RN DOCUMENT IMPROVEMENT SPECIALIST [address] [place] [address] [place] [address] CHEESE SUPERVISOR Gastroenterology 09/13/22 Marcello Ibanez MD [address] [place] [address] Fellow Gastroenterology 11/08/22 Parts Identification Technician Relationship Specialty Start Date End Date Theo Burks MD [address] [place] [address] [place] [address] PCP - General Family Medicine 08/25/22 Abbey Alvarez MD [address] [place] [address] [place] [address] Fellow Gastroenterology 09/13/22 Maria C Faustin APRN-RN DOCUMENT IMPROVEMENT SPECIALIST [address] [place] [address] [place] [address] CHEESE SUPERVISOR Gastroenterology 09/13/22 Marcello Ibanez MD [address] [place] [address] Fellow Gastroenterology 11/08/22 Parts Identification Technician Relationship Specialty Start Date End Date Theo Burks MD [address] [place] [address] [place] [address] PCP - General Family Medicine 08/25/22 Abbey Alvarez MD [address] [place] [address] [place] [address] Fellow Gastroenterology 09/13/22 Maria C Faustin APRN-RN DOCUMENT IMPROVEMENT SPECIALIST [address] [place] [address] [place] [address] CHEESE SUPERVISOR Gastroenterology 09/13/22 Marcello Ibanez MD [address] [place] [address] Fellow Gastroenterology 11/08/22 Parts Identification Technician Relationship Specialty Start Date End Date Theo Burks MD [address] [place] [address] [place] [address] PCP - General Family Medicine 08/25/22 Abbey Alvarez MD [address] [place] [address] [place] [address] Fellow Gastroenterology 09/13/22 Maria C Faustin, COMMERCIAL CRABBER-RN DOCUMENT IMPROVEMENT SPECIALIST [address] [place] [address] [place] [address] CHEESE SUPERVISOR Gastroenterology 09/13/22 Marcello Ibanez MD [address] [place] [address] Fellow Gastroenterology 11/08/22 Parts Identification Technician Relationship Specialty Start Date End Date Theo Burks MD [address] [place] [address] [place] [address] PCP - General Family Medicine 08/25/22 Abbey Alvarez MD [address] [place] [address] [place] [address] Fellow Gastroenterology 09/13/22 Maria C Faustin APRN-RN DOCUMENT IMPROVEMENT SPECIALIST [address] [place] [address] [place] [address] CHEESE SUPERVISOR Gastroenterology 09/13/22 Marcello Ibanez MD [address] [place] [address] Fellow Gastroenterology 11/08/22 Parts Identification Technician Relationship Specialty Start Date End Date Theo Burks MD [address] [place] [address] [place] [address] PCP - General Family Medicine 08/25/22 Abbey Alvarez MD [address] [place] [address] [place] [address] Fellow Gastroenterology 09/13/22 Maria C Faustin APRN-RN DOCUMENT IMPROVEMENT SPECIALIST [address] [place] [address] [place] [address] CHEESE SUPERVISOR Gastroenterology 09/13/22 Marcello Ibanez MD [address] [place] [address] Fellow Gastroenterology 11/08/22 Parts Identification Technician Relationship Specialty Start Date End Date Theo Burks MD [address] [place] [address] [place] [address] PCP - General Family Medicine 08/25/22 Abbey Alvarez MD [address] [place] [address] [place] [address] Fellow Gastroenterology 09/13/22 Maria C Faustin, LIBAN-RN DOCUMENT IMPROVEMENT SPECIALIST [address] [place] [address] CHEESE SUPERVISOR Gastroenterology 09/13/22 Marcello Ibanez MD [address] [facility] [place], [place] [id number] Fellow Gastroenterology 11/08/22 (unrecognized sect ion and content) No Status Records FoundNo Status Records Found INFORMATION SOURCE (unrecogn ized section and content) DATE CREATED AUTHOR 07/20/2023 [employer] DATE CREATED AUTHOR AUTHOR'S ORGANIZ ATION 09/10/2023 [facility] FOR RECORDS PERTAINING TO PATIENTS WHO ARE [...] BE BASED ON THE PRIMARY CLINICAL RECORDS. [facility] [employer] [facility]. provides no warranty or guarantee of the accuracy or completeness of information in this document.
== END 2023-09-18 11:44 | disposition home or self-care (01) ==
LOC: WC 11:43
PROVIDERS: PCP Radiology Diagnostic Radiology; Visit Provider Podiatrist Foot & Ankle Surgery
DX: T81.89XA Other complications of procedures, not elsewhere classified, initial encounter (principal); L97.912 Non-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 fat layer exposed
CPT/HCPCS: 11042

== ENCOUNTER 2023-10-08 11:59 | Emergency (ER) | payer OTHER, SELFPAY ==
[2023-10-08] VITALS (7 sets, daily range): BP systolic 139–157; BP diastolic 71–88; PULSE 72–77; RESP 11–18; TEMP 36.7; O2SAT 100; BMI 23.5
--- NOTE | 2023-10-08 12:14 | ECG_ITS ---
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
--- NOTE | 2023-10-08 12:14 | XR_ITS ---
The [address] [address] Patient Name: WILL ANDERSON MRN: [id number] date: 1985 Sex: M Assigned Patient Location: ER Current Patient Location: ER Accession/Order Number: [id number] Exam Date: 10/08/2023 12:35 Report Date: 10/08/2023 12:54 At the request of: ARNALDO ROSEN Procedure: XR chest 1V EXAMINATION: XR chest 1V HISTORY: reportedly abnormal EKG , chest pain COMPARISON: No relevant comparison available. FINDINGS: LUNGS: No significant pulmonary parenchymal abnormalities. VASCULATURE: No increased pulmonary vasculature. PLEURA: No pneumothorax, effusion, or pleural thickening. CARDIAC: No cardiomegaly or cardiac silhouette abnormality. MEDIASTINUM: No visible mass or adenopathy. BONES: No fracture or visible bone lesion. OTHER: Negative. XR/XR chest 1V IMPRESSION: 1. Normal chest x-ray. Electronically authenticated by: MARGARET WEEKS Date: 10/08/2023 12:54
--- NOTE | 2023-10-08 12:18 | ED.GENADUL1 ---
HPI - General Adult General Chief complaint: Chest Pain Stated complaint: IRREGULAR EKG Time Seen by Provider: 10/08/23 12:09 Source: patient Mode of arrival: walk-in History of Present Illness HPI narrative: 38-year-old male presents for an abnormal EKG. The patient was reportedly at his PCPs office today and was there because of elevated blood pressure. An EKG was done and was reportedly abnormal so he was directed here. He doesn't have any chest pain or fever. He has no history of heart problems. He does have a history of alcohol abuse but stopped drinking two years ago. A few weeks ago he had what appears to be banding for esophageal varices. Related Data Home Medications Medication Instructions Recorded Confirmed folic acid 1 mg tablet 1 mg PO DAILY 08/12/23 10/08/23 lactulose 10 gram/15 mL (15 mL) 30 ml PO BID 08/12/23 10/08/23 oral solution multivitamin with folic acid 400 1 tab PO DAILY 08/12/23 10/08/23 mcg tablet (Tab-A-Scott) mycophenolate mofetil 500 mg tablet 500 mg PO DAILY 08/12/23 10/08/23 spironolactone 50 mg tablet 50 mg PO DAILY 08/12/23 10/08/23 Previous Rx's Medication Instructions Recorded oxycodone 5 mg capsule 5 mg PO Q8H PRN pain 7 days #21 08/14/23 caps Allergies Allergy/AdvReac Type Severity Reaction Status Date / Time amoxicillin Allergy Severe Verified 08/12/23 14:35 Penicillins Allergy Severe Verified 08/12/23 14:35 Review of Systems ROS Narrative A ten point review of systems is negative except as noted above. 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 Smoking status: Former smoker Non-prescribed substance use: denies use Previous occupational history: [employer] Highest level of school completed/degree received: high school graduate Are you now , , , , never or living with a partner: never In a typical week, how many times do you talk on the telephone with family, friends, or neighbors: 3 or more times per week How often do you get together with friends or relatives: twice per week How often do you attend gnosticist or congregational services: never Do you belong to any clubs or organizations such as gnosticist groups unions, fraternal or athletic groups, or school groups: no Total score: 1 Score interpretation: A score of less than or equal to 1 indicates the most socially isolated. Little interest or pleasure in doing things: not at all Feeling down, depressed, or hopeless: not at all Feel stressed/tense/nervous/anxious/difficulty sleeping: to some extent Life stressor details: Pain in legs Exam Narrative Exam Narrative: Nurses note and vital signs reviewed and patient is not hypoxic. General: The patient appears well and in no apparent distress. Patient is resting comfortably on cart. Skin: Warm, dry, no pallor noted. There is no rash noted. Head: Normocephalic, atraumatic Eye: sclera are icteric Ears, Nose, Mouth, and Throat: oral mucosa is moist. Nares patent. Cardiovascular: Regular Rate and Rhythm Respiratory: Patient is in no distress, no accessory muscle use, lungs are clear to auscultation, no wheezing, rales or rhonchi Back: non-tender GI: often nontender Musculoskeletal: The patient has no evidence of calf tenderness, no pitting edema, symmetrical pulses noted bilaterally Neurological: A&O, normal speech Psychiatric: Cooperative Constitutional Vital Signs, click to edit/add: Last Vital Signs Temp 98.0 F 10/08/23 12:12 Pulse 73 10/08/23 12:04 Resp 18 10/08/23 12:04 BP 157/88 H 10/08/23 12:04 Pulse Ox 100 10/08/23 12:12 O2 Del Method Room Air 10/08/23 12:12 Course Vital Signs Vital signs: Vital Signs Pulse Rate 73 10/08/23 12:04 Respiratory Rate 18 10/08/23 12:04 Blood Pressure 157/88 H 10/08/23 12:04 Pulse Oximetry 100 10/08/23 12:04 Oxygen Delivery Method Room Air 10/08/23 12:04 Temperature 98.0 F 10/08/23 12:12 Pulse Rate 73 10/08/23 12:04 Respiratory Rate 18 10/08/23 12:04 Blood Pressure 157/88 H 10/08/23 12:04 Pulse Oximetry 100 10/08/23 12:12 Oxygen Delivery Method Room Air 10/08/23 12:12 Medical Decision Making Lab Data Lab results reviewed: Yes I reviewed the patient's lab results Labs: Lab Results 10/08/23 Range/Units 12:24 WBC 3.8 L (4.0-11.0) 10^3/uL RBC 3.35 L (4.70-6.10) 10^6/uL Hgb 11.9 L (14.0-18.0) g/dL Hct 34.6 L (42.0-54.0) % MCV 103.3 H (80.0-94.0) fL MCH 35.5 H (25.9-34.0) pg MCHC 34.4 (29.9-35.2) g/dL RDW 14.4 (11.0-15.0) % Plt Count 82 L (150-450) 10^3/uL MPV 10.8 (9.5-13.5) fL Neut % (Auto) 61.5 (43.0-75.0) % Lymph % (Auto) 25.4 (20.5-60.0) % [place] % (Auto) 8.9 (1.7-12.0) % Eos % (Auto) 2.4 (0.9-7.0) % Baso % (Auto) 1.0 (0.2-2.0) % Neut # (Auto) 2.4 (1.4-6.5) 10^3/uL Lymph # (Auto) 1.0 L (1.2-3.8) 10^3/uL [place] # (Auto) 0.3 (0.3-0.8) 10^3/uL Eos # (Auto) 0.1 (0.0-0.7) 10^3/uL Baso # (Auto) 0.0 (0.0-0.1) 10^3/uL Abs Immat Gran (auto) 0.03 (0.00-0.03) 10^3/uL Imm/Tot Granulo (auto) 0.8 H (0.0-0.5) % Sodium 134 L (136-145) mmol/L Potassium 4.2 (3.5-5.1) mmol/L Chloride 99 (98-107) mmol/L Carbon Dioxide 26.9 (21.0-32.0) mmol/L Anion Gap 12.3 BUN 7.0 (7.0-18.0) mg/dL Creatinine 0.64 L (0.70-1.30) mg/dL Est GFR ( Amer) >60 (>=60) Est GFR (Non-Af Amer) >60 (>=60) BUN/Creatinine Ratio 10.9 Glucose 151 H (74-106) mg/dL Calcium 8.4 L (8.5-10.1) mg/dL Total Bilirubin 5.8 H (0.2-1.0) mg/dL Direct Bilirubin 2.2 H* (0.0-0.2) mg/dL AST 96 H (15-37) U/L ALT 74 H (16-63) U/L Alkaline Phosphatase 319 H (46-116) U/L Troponin I High Sens 14.8 (4.0-76.1) pg/mL Total Protein 7.0 (6.4-8.2) g/dL Albumin 2.7 L (3.4-5.0) g/dL Globulin 4.3 g/dL Albumin/Globulin Ratio 0.6 Imaging Data Chest x-ray: Radiologist's impression: ITS Impressions Chest X-Ray 10/08/23 12:14 IMPRESSION: 1. Normal chest x-ray. Electronically authenticated by: MARGARET WEEKS Date: 10/08/2023 12:54 ECG Data Attestation: I personally reviewed and interpreted this ECG as follows: (EKG on my interpretation shows normal sinus rhythm without any acute changes and a rate of 66.) Discharge Plan Discharge Chief Complaint: Chest Pain Clinical Impression: Hypertension Patient Disposition: Home, Self-Care Time of Disposition Decision: 13:41 Condition: Good Mode of Transportation: Private Vehicle Prescriptions / Home Meds: No Action mycophenolate mofetil 500 mg tablet 500 mg PO DAILY folic acid 1 mg tablet 1 mg PO DAILY spironolactone 50 mg tablet 50 mg PO DAILY multivitamin with folic acid [Tab-A-Scott] 400 mcg tablet 1 tab PO DAILY lactulose 10 gram/15 mL (15 mL) solution 30 ml PO BID Rx Instructions: can take more if needed to have 3-4 bm per day oxycodone 5 mg capsule 5 mg PO Q8H PRN (Reason: pain) 7 Days Qty: 21 0RF Instructions: Hypertension (ED) Stand Alone Forms: Portal Instructions Referrals: Physician,Non-Staff, MD [Primary Care Provider] - 1 week
[2023-10-08 12:37] LABS: Eosinophils Absolute Auto 0.1 10^3/uL (0.0-0.7); Eosinophils Percent Auto 2.4 % (0.9-7.0); Hematocrit 34.6 % (42.0-54.0); Hemoglobin 11.9 g/dL (14.0-18.0); Immature Granulocytes Abs Auto 0.03 10^3/uL (0.00-0.03); Immature Granulocytes Pct Auto 0.8 % (0.0-0.5); Lymphocytes Percent Auto 25.4 % (20.5-60.0); Mean Corpuscular HGB Conc 34.4 g/dL (29.9-35.2); Mean Corpuscular Hemoglobin 35.5 pg (25.9-34.0); Mean Corpuscular Volume 103.3 fL (80.0-94.0); Mean Platelet Volume 10.8 fL (9.5-13.5); Monocytes Absolute Auto 0.3 10^3/uL (0.3-0.8); Monocytes Percent Auto 8.9 % (1.7-12.0); Neutrophils Absolute Auto 2.4 10^3/uL (1.4-6.5); Neutrophils Percent Auto 61.5 % (43.0-75.0); Platelet Count 82 10^3/uL (150-450); Red Blood Count 3.35 10^6/uL (4.70-6.10); Red Cell Distribution Width 14.4 % (11.0-15.0); White Blood Count 3.8 10^3/uL (4.0-11.0)
[2023-10-08 13:21] LABS: Anion Gap 12.3; BUN Creatinine Ratio 10.9; Calcium 8.4 mg/dL (8.5-10.1); Carbon Dioxide 26.9 mmol/L (21.0-32.0); Chloride 99 mmol/L (98-107); Estimated GFR (African America >60 (>=60); Estimated GFR (Non-African Ame >60 (>=60); Glucose 151 mg/dL (74-106); Potassium 4.2 mmol/L (3.5-5.1); Sodium 134 mmol/L (136-145); Troponin I High Sensitivity 14.8 pg/mL (4.0-76.1)
[2023-10-08 13:23] LABS: Alanine Aminotransferase 74 U/L (16-63); Albumin Globulin Ratio 0.6; Albumin Level 2.7 g/dL (3.4-5.0); Alkaline Phosphatase 319 U/L (46-116); Aspartate Amino Transferase 96 U/L (15-37); Bilirubin Total 5.8 mg/dL (0.2-1.0); Globulin 4.3 g/dL
[2023-10-08 13:27] LABS: Bilirubin Direct 2.2 mg/dL (0.0-0.2)
== END 2023-10-08 13:56 | disposition home or self-care (01) ==
PROVIDERS: Emergency Provider Emergency Medicine
DX: I10 Essential (primary) hypertension (principal); Z79.899 Other long term (current) drug therapy; Z87.891 Personal history of nicotine dependence; F10.11 Alcohol abuse, in remission
CPT/HCPCS: 36415; 71045; 80048; 80076; 84484; 85025; 93005; 99285

== ENCOUNTER 2023-10-12 10:02 | Outpatient (OUT) | payer OTHER, SELFPAY ==
--- OUTSIDE RECORDS SUMMARY | 2023-10-12 10:08 | XMS_ITS | CCD ---
Author Name Unknown Address [address] [place] [address] Organization [facility] Care Team Providers Care Stick Roller Name Role Phone Link, Colby Nicholson Primary Care Physician Unavailable Primary Care Provider Unavailabl e Unavailable Primary Care Provider Unavailabl e Unavailable Primary Care Provider Unavailabl e Theo Burks MD Primary Care Provider Abbey Alvarez MD Unavailable Saskia Day Unavailable Theo Burks MD Primary Care Provider Abbey Alvarez MD Unavailable Gricelda SILVESTRE, Saskia Unavailable [phone] Shamar MULTANI, Marcello Unavailable Saskia Day Unavailable [phone] THEO BURKS Primary Care Physician Unavaila ble NONE, XXXX Primary Care Physician Unavailab Jarrod Nettles Unavailable Lisa Lopez Primary Care Physician PROVIDER, UNKNOWN Admitting Unavailable BLACK, TONJEH Referring Unavailable THEO BURKS Primary Care Unavailable PROVIDER, UNKNOWN Attending Unavailable PROVIDER, UNKNOWN Admitting Unavailable THEO BURKS Primary Care Unavailable PROVIDER, UNKNOWN Attending Unavailable PROVIDER, UNKNOWN Admitting Unavailable PROVIDER, UNKNOWN Attending Unavailable PATIENT, SELF Referring Unavailable THEO BURKS Primary Care Unavailable PROVIDER, UNKNOWN Admitting Unavailable PROVIDER, UNKNOWN Attending Unavailable THEO BURKS Primary Care Unavailable PROVIDER, UNKNOWN Admitting Unavailable PROVIDER, UNKNOWN Attending Unavailable THEO BURKS Primary Care Unavailable PROVIDER, UNKNOWN Admitting Unavailable PROVIDER, UNKNOWN Attending Unavailable BURKS, THEO Primary Care Unavailable PROVIDER, UNKNOWN Admitting Unavailable BLACK, TONJEH Referring Unavailable BURKS, THEO Primary Care Unavailable PROVIDER, UNKNOWN Attending Unavailable PROVIDER, UNKNOWN Admitting Unavailable BURKS, THEO Primary Care Unavailable PROVIDER, UNKNOWN Attending Unavailable PROVIDER, UNKNOWN Attending Unavailable PROVIDER, UNKNOWN Admitting Unavailable BLACK, TONJEH Referring Unavailable BURKS, THEO Primary Care Unavailable PROVIDER, UNKNOWN Admitting Unavailable PROVIDER, UNKNOWN Attending Unavailable BURKS, THEO Primary Care Unavailable BLACK, TONJEH Referring Unavailable PROVIDER, UNKNOWN Admitting Unavailable PROVIDER, UNKNOWN Attending Unavailable BURKS, THEO Primary Care Unavailable BLACK, TONJEH Referring Unavailable PROVIDER, UNKNOWN Admitting Unavailable PROVIDER, UNKNOWN Attending Unavailable BURKS, THEO Primary Care Unavailable BLACK, TONJEH Referring Unavailable Teddy Hitchcock Attending Unavailable Mourandamaso, Teddy Rodarte Attending Unavailable Mourany, Teddy Rodarte Attending Unavailable Lisa Lopez Referring Unavailable Lisa Lopez Attending Unavailable Sarmini, Mario Talal Referring Unavaila ble Sarmini, Mario Duenasal Attending Unavaila ble Sarmini, Martin Talal Admitting Unavaila ble Sarmini, Martin Talal Referring Unavaila ble Sarmini, Martin Talal Attending Unavaila ble Sarmini, Martin Talal Admitting Unavaila ble MoTeddy abad Admitting Unavailable Mourany, Teddy Rodarte Referring Unavailable Mopollo, Teddy Rodarte Attending Unavailable Lisa Lopez Admitting Unavailable Lisa Lopez Attending Unavailable Martin Reese Attending Unavailable Teddy Luna Attending Unavailable Keith Patricia Attending Unavailable Sarmini, Mario Talal Attending Unavaila ble Lisa Lopez Referring Unavailable Axel Lewis Attending Unavailable MoTeddy abad Attending Unavailable Moyanicky, Teddy Rodarte Attending Unavailable Mourandamaso, Teddy Rodarte Attending Unavailable REFERRAL, SELF Referring Unavailable Mourandamaso, Teddy Rodarte Attending Unavailable Mourany, Teddy Rodarte Attending Unavailable Mourany, Teddy Rodarte Attending Unavailable Mourany, Teddy Rodarte Attending Unavailable Mourandamaso, Teddy Rodarte Attending Unavailable Mourandamaso, Teddy Rodarte Attending Unavailable Mourandamaso, Teddy Rodarte Attending Unavailable Mourany, Teddy Rodarte Attending Unavailable Brent Sanches Attending Unavailable Lisa Lopez Attending Unavailable Lisa Lopez Attending Unavailable Lisa Lopez Attending Unavailable Lisa Lopez Attending Unavailable Lisa Lopez Attending Unavailable Teddy Hitchcock Attending Unavailable Teddy Hitchcock Attending Unavailable Teddy Hitchcock Attending Unavailable Allergies Allergy Classification Reported Allergen(s) Allergy Type Date of Onset Reaction(s) Facility (20 sources) Amoxicillin; Translations: [amoxicillin] Drug Allergy Unknown (qualifier value) [facility] (20 sources) Penicillin; Translations: [penicillin] Drug Allergy unknown [facility] (1 source) Substance with penicillin structure and antibacterial mechanism of action (substance) Drug allergy Unknown [employer] Other Medications Current Medications Medication Drug Class(es) Dates Sig (Normalized) Sig (Original) cephalexin 500 mg oral capsule (9 sources) Cephalosporin Antibacterial Start: 09-21-2023 End: 09-26-2023 take 1 capsule by mouth every eight hours Keflex 500 mg Cap 500 mg = 1 cap(s), Oral, q8hr, X 5 day(s), # 15 cap(s), Refills(s) 0, Pharmacy: [facility] #[id number], 170, cm, 09/21/23 14:28:00 EST, Height/Length Dosing, 70.1, kg, 09/21/23 14:27:00 EST, Weight Dosing Start Date: 09/21/23 Stop Date: 09/26/23 Status: Ordered Start: 08-25-2022 End: 09-01-2022 take 1 capsule [...] day(s), # 28 cap(s), Refills(s) 0, Pharmacy: [facility] #[id number], 170, cm, 02/18/23 7:51:00 EDT, Height/Length Dosing, 77, kg, 02/18/23 7:51:00 EDT, Weight Dosing Start Date: 02/18/23 Stop Date: 02/25/23 Status: Ordered Start: 02-17-2022 take 2 capsules by m outh four times daily clindamycin 150 mg Cap 300 mg = 2 cap(s), Oral, QID, # 56 cap(s), Refills(s) 0, Pharmacy: [id number], 170.2, cm, 02/17/22 12:34:00 [...] 1 mg oral tablet (20 sources) Start: 01-16-2022 End: 07-13-2023 take 1 tablet by mouth once daily folic acid 1 mg Tab 1 mg = 1 tab(s), Oral, Daily, Refills(s) 0, Prophylaxis Start Date: 07/24/23 Status: Ordered Start: 01-08-2022 End: 01-15-2022 take 1 mg intravenously once daily 1 mg, Intravenous P ush, DAILY, First dose on Thu01/08/22 at 1430, Until Discontinued furosemide 20 mg oral tablet (20 sources) Loop Diuretic Start: 08-25-2022 End: 01-25-2023 take 1 tablet by mouth once daily furosemide 20 mg Tab 20 mg = 1 tab(s), Oral, Daily, Refills(s) 0, diuretic/water pill Start Date: 07/24/23 Status: Ordered gabapentin 300 mg oral capsule (7 sources) Anti-epileptic Agent Start: 07-24-2023 take 1 capsule by mouth twice daily gabapentin 300 mg Cap 300 mg = 1 cap(s), Oral, BID, # 60 cap(s), Refills(s) 0, Pharmacy: [facility] #[id number], 170, cm, 07/24/23 7:59:00 EST, Height/Length Dosing, 73.5, kg, 07/24/23 7:59:00 EST, Weight Dosing Start Date: 07/24/23 Status: Ordered hydrOXYzine pamoate 25 mg oral capsule (20 sources) Antihistamine Start: 12-16-2022 End: 02-09-2023 take 1 capsule [...] mL, Oral, QID, # 480 mL, Refills(s) 0, Other (see comment) Start Date: 07/24/23 Status: Ordered Start: 04-24-2023 [...] , First dose (after last modification) on Rachel 01/09/22 at 2100, Until Discontinued Start: 01-08-2022 End: [...] patches if insurance coverage issue, [facility] #[id number], 170, cm, 08/26/23 9:52:00 EST, Height/Length Dosing, 68.5, kg, 08/26/23 9:52:00 EST, Weight Dosing Start Date: 08/26/23 Status: Ordered Start: 08-26-2023 apply 28.5 g topical ly twice daily lidocaine 3% topical gel See Instructions, 28.5 gm, Refill(s) 0, Topical BID apply a thin film to the affected areas may substitute for 2 % if this is not available, [facility] #[id number], 170, cm, 08/26/23 9:52:00 EST, Height/Length Dosing, 68.5, kg, 08/26/23 9:52:00 EST, Weight Dosing Start Date: 08/26/23 Status: Ordered Start: 12-15-2022 End: 03-06-2023 apply 1 dose transdermal route every twenty-four hours lidocaine (LIDODERM) 5 % patch Indications: Rib pain Place 1 Patch on the skin every 24 hours. 10 Patch 3 03/06/2023 Active Milk thistle extract (7 sources) Start: 07-24-2023 take 1000 mg by mouth once daily Milk Thistle 1,000 mg, Oral, Daily, Refill(s) 0 Start Date: 07/24/23 Status: [facility]dered [facility] Pres[facility] (20 sources) Start: 07-24-2023 Misc DME Presc ription See Instructions, LiquidIV hydration Start Date: 07/24/23 Status: Ordered Start: 07-24-2023 Misc DME Presc ription See Instructions, Collagen Matrix with ORC and Silver dressing Start Date: 07/24/23 Status: Ordered Start: 07-24-2023 [facility] DME Presc ription See Instructions, [place] SAP Dressing 4 x 4 dressing Start Date: 07/24/23 Status: Ordered Start: 07-24-2023 [facility] DME Presc ription See Instructions, Muscle & joint balm CBD 880mg Start Date: 07/24/23 Status: Ordered [facility] Prescription (7 sources) Start: 07-24-2023 [facility] Prescription Bee Venom, Daily Start Date: 07/24/23 Status: Ordered Multiple Vitamin (Tab-A-Scott) TABS (6 sources) Start: 07-13-2023 take 1 tablet by [...] 500 mg oral tablet (20 sources) Start: 03-13-2022 End: 07-21-2023 take 1 tablet by mouth twice daily mycophenolate mofetil 500 mg oral tablet 500 mg = 1 tab(s), Oral, BID, Refills(s) 0, Other (see comment) Start Date: 07/24/23 Status: Ordered Start: 02-11-2022 [...] day(s), # 15 cap(s), Refills(s) 0, Pharmacy: [facility] #[id number], 170, cm, 02/18/23 7:51:00 EDT, Height/Length Dosing, 77, kg, 02/18/23 7:51:00 EDT, Weight Dosing Start Date: 02/18/23 Stop Date: 02/21/23 Status: Ordered spironolactone 50 mg oral tablet (20 sources) Aldosterone Antagonist Start: 08-25-2022 End: 03-16-2023 take 1 tablet by mouth once daily spironolactone 50 mg Tab 50 mg = 1 tab(s), Oral, Daily, Refills(s) 0, diuretic/water pill Start Date: 07/24/23 Status: Ordered Bactrim (20 sources) Dihydrofolate Reductase Inhibitor Antibacterial, Sulfonamide Antimicrobial Start: 09-30-2023 Bactrim Oral, Refill(s) 0, taskes 3 times a week Start Date: 09/30/23 Status: Ordered Start: 07-24-2023 sulfamethoxazo le-trimethoprim 80 mg, Oral, Refill(s) 0, Take on [...] day(s), 28 tab(s), Refill(s) 0, [facility] #[id number], 170, cm, 03/22/23 20:14:00 EDT, Height/Length Dosing, [...] Discontinued (Reorder (*won't e-cancel)) Tab-A-Scott oral tablet (8 sources) Start: 07-24-2023 take 1 tablet by mouth once daily Tab-A-Scott oral tablet 1 tab(s), Oral, Daily, Refill(s) 0, Prophylaxis Start Date: 07/24/23 Status: Ordered Start: 07-24-2023 take 1 tablet by patricia th once daily Tab-A-Scott oral tablet 1 tab(s), [...] ODT 4 mg Tab-Dis (20 sources) Start: 09-30-2023 take 1 tablet by mouth every eight hours as needed for nausea Zofran ODT 4 mg Tab-Dis 4 mg = 1 tab(s), Oral, q8hr, PRN Nausea/Vomiting, # 60 tab(s), Refills(s) 12, [id number], 170, cm, 09/30/23 9:19:00 EST, Height/Length Dosing, 69, kg, 09/30/23 9:19:00 EST, Weight Dosing Start Date: 09/30/23 Status: Ordered Start: 03-22-2023 take 1 tablet by patricia th every eight hours as needed for nausea Zofran ODT 4 mg Tab-Dis 4 mg = 1 tab(s), Oral, q8hr, PRN Nausea/Vomiting, # 20 tab(s), Refills(s) 0, Pharmacy: [facility] #[id number], 170, cm, 03/22/23 20:14:00 EDT, Height/Length Dosing, [...] 05/06/2022 Discontinued (Therapy completed) 168 hr cloNIDine 0.93329 mg/hr transdermal system (1 source) Central alpha-2 [...] medicament (substance) (3 sources) Start: 01-10-2022 End: 05-11-2022 take 3.4-23.5 mL intravenously every hour 0.2-1.4 [...] 01-09-2022 2 mg, Oral, EVERY 2 HOURS AK N, Starting on Thu01/08/22 at 1755, Until [...] tablet by mouth twice daily Potassium Chloride (Ugx-Wfbz-Sdr M20) 20 mEq oral tablet, extended release 20 mEq = 1 tab(s), Oral, BID, # 30 tab(s), Refills(s) 3, Pharmacy: [facility] #[id number], 170, cm, 07/24/23 7:59:00 EST, Height/Length Dosing, 73.5, kg, 07/24/23 7:59:00 EST, Weight Dosing Start Date: 07/24/23 Status: Ordered Start: 11-14-2022 take 1 tablet by patricia th once daily potassium chloride SA (K-DUR) 20 [...] Problem Classification Problem Date Documented Date Episodic/Chronic Abdominal pain (1 source) Left lower quadrant pain; Translations: [Left lower quadrant pain] Onset: 09-21-2023 Episodic Alcohol-related disorders (20 sources) Alcohol abuse; Translations: [Alcohol abuse, uncomplicated] Onset: 01-07-2022 Resolved: 01-12-2023 Chronic Bacterial infection; unspecified site (1 source) Bacterial infection due to Klebsiella pneumoniae; Translations: [Other bacterial infections of unspecified site] Episodic Chronic ulcer of skin (3 sources) Non-pressure chronic ulcer of unspecified part [...] Onset: 08-26-2023 Chronic Deficiency and other anemia (10 sources) Anemia; Translations: [Anemia, unspecified] Onset: 01-07-2022 Episodic Deficiency and other anemia (8 sources) Iron deficiency anemia; Translations: [Iron deficiency anemia, unspecified] Episodic Deficiency and other anemia (2 sources) Deficiency and other anemia; 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] 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-2022 Diabetes mellitus without complication (9 sources) Impaired fasting glycemia; Translations: [Impaired fasting glucose] Onset: 07-24-2023 Episodic E Codes: Natural/environment (1 source) Bite of nonvenomous arthropod; Translations: [Bitten or stung by nonvenomous insect and other nonvenomous arthropods, initial encounter] Onset: 06-19-2023 Episodic Esophageal disorders (2 sources) Esophageal varices without bleeding; Translations: [Esophageal varices without bleeding] Onset: 10-01-2023 Chronic Fluid and electrolyte disorders (12 sources) Acidosis; Translations: [Acidosis] Onset: 01-07-2022 Episodic [...] myeloma not having achieved remission] 04-21-2023 Chronic Nutritional deficiencies (20 sources) Vitamin D deficiency; Translations: [Vitamin D deficiency, unspecified] Onset: 10-30-2011 08-25-2022 Chronic Open wounds of extremities (1 source) Unspecified open wound, right lower leg, initial encounter Episodic Other aftercare (4 sources) Antibiotic prophylaxis indicated; Translations: [terminal carman (current) use of antibiotics] Episodic Other aftercare (5 sources) Drug therapy status; Translations: [Other termite control service representative (current) drug therapy] Episodic Other aftercare (1 source) Long-term current use of drug therapy; Translations: [Other termite control service representative (current) drug therapy] Onset: 07-24-2023 Episodic Other circulatory disease (1 source) Elevated blood-pressure reading without diagnosis of hypertension; Translations: [Elevated blood-pressure reading, without diagnosis of hypertension] Onset: 07-24-2023 Episodic Other circulatory disease (8 sources) Elevated blood pressure 07-24-2023 Episodic Other [...] Translations: [Liver fibrosis] Chronic Other liver diseases (2 sources) Portal hypertension; Translations: [Portal hypertension] Onset: 10-01-2023 Chronic Other liver diseases (1 source) Hepatic failure; Translations: [Acute and subacute hepatic failure without coma] Onset: 01-07-2022 Episodic Other liver diseases (9 sources) Elevated liver enzymes level; Translations: [Abnormal [...] use] Onset: 07-24-2023 Episodic Residual codes; unclassified (4 sources) Current drinker; Translations: [Alcohol use, unspecified, in remission] Onset: 07-24-2023 Episodic Residual codes; unclassified (8 sources) User of smokeless tobacco 07-24-2023 Episodic Residual codes; unclassified (2 sources) Body mass index 20-24 - normal; Translations: [Body mass index (BMI) 23.0-23.9, adult] Onset: 08-26-2023 Episodic Residual codes; unclassified (1 source) Edema; Translations: [Edema, unspecified] Onset: 10-01-2023 Episodic Residual codes; unclassified (1 source) Dependent edema 10-01-2023 Episodic Skin and subcutaneous tissue infections (20 sources) Cellulitis of right lower limb; Translations: [Cellulitis of right lower limb] Onset: 02-18-2023 Episodic Sprains and strains (1 source) Injury of shoulder and upper arm; Translations: [Strain of muscle, fascia and tendon of other parts of biceps, left arm, initial encounter] Episodic Superficial injury; contusion (1 source) Insect bite, nonvenomous, of thigh; Translations: [Insect bite (nonvenomous), right thigh, initial encounter] Onset: 06-19-2023 Episodic Unclassified (8 sources) Patient encounter status 07-24-2023 Unclassified (7 sources) Serum albumin below reference range 07-24-2023 Unclassified (5 sources) Body mass index 20-24 - normal 08-26-2023 Unclassified (5 sources) Venous ulcer of lower limb 08-26-2023 Urinary tract infections (4 sources) Urinary tract infectious disease; Translations: [Urinary tract infection, site not specified] Episodic Varicose veins of lower extremity (4 sources) Varicose veins of right lower limb; Translations: [Varicose veins of right lower extremity with ulcer of unspecified site] Onset: 08-26-2023 Episodic Past or Other Problems Problem Classification Problem Date Documented Date Episodic/Chronic Nausea and vomiting (9 sources) Nausea and vomiting; Translations: [Nausea with vomiting, unspecified] Onset: 10-27-2022 Episodic Other aftercare (1 source) Other assisted (current) drug therapy; Translations: [Other termite control service representative (current) drug therapy] Onset: 04-21-2023 Episodic Other aftercare (1 source) terminal carman (current) use of antibiotics; Translations: [terminal carman (current) use of antibiotics] Onset: 04-21-2023 Episodic Other fractures (20 sources) Compression fracture [...] to other disease] Onset: 10-29-2011 08-25-2022 Episodic Skull and face fractures (20 sources) Open fracture of mandible, angle of jaw; Translations: [Fracture of angle of mandible, unspecified side, initial encounter for open fracture] Onset: 03-15-2008 03-15-2008 Episodic Results Test Name Value Interpretation Reference Range Facil ity ED Note-Physicianon 10-12-19 ED Note-Physician [id number] Dung Paulino [facility] Ambulatory Visit Summaryon 0 10-08-2023 Ambulatory Visit Summary WILL ANDERSON :1985 Visit Date:10/08/2023 Ambulatory Visit Instructions Your Diagnosis Chest pain HTN (hypertension) Portal venous hypertension Venous ulcer of right leg Alcohol use disorder in remission Headache 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 BMI 23.0-23.9, adult Your Care Team Attending Physician - Lisa Padilla Primary Care Physician - Lisa Padilla This Is Your Medications List Contact prescribing physician if questions or concerns Misc Prescription (Misc DME Prescription) Misc Prescription (Misc DME Prescription) Misc Prescription (Misc DME Prescription) folic acid (folic acid 1 mg Tab) furosemide (furosemide 20 mg Tab) lactulose (lactulose 10 g/15 mL Oral Syrup) lidocaine topical (lidocaine 3% topical gel) lidocaine topical (lidocaine Top 5% film Patch) multivitamin (Tab-A-Scott oral tablet) mycophenolate mofetil (mycophenolate mofetil 500 mg oral tablet) ondansetron (Zofran ODT 4 mg Tab-Dis) ondansetron (ondansetron 4 mg Dis Tab) oxycodone (oxyCODONE 5 mg Cap) potassium chloride (Potassium Chloride (Ibz-Oeed-Kig M20) 20 mEq oral tablet, extended release) spironolactone (spironolactone 50 mg Tab) sulfamethoxazole-trim ethoprim (Bactrim) [Image Removed: STOP]Stop taking these medications Misc Prescription (Misc DME Prescription) Procedures Performed Esophagogastroduodeno scopy (09/30/2023), I and D, Jaw. Discharge Vitals Heart Rate (Peripheral) 72 Respiratory Rate 18 Blood Pressure 128/54 Blood Pressure 120/70(Sitting) Blood Pressure 128/62(Standing) Blood Pressure 118/58(Supine) Height 67 in Height 170 cm Weight 149.16 lb Weight 67.8 kg BMI 23.46 What to do next Scheduled Follow-Up Appointments Thursday 9:00 AM EST With: John ALBERTS, Lisa Tripp Where: [facility] Invalid Interpretation Code Portal venous hypertension [facility] Office/Clini c Noteon 10-08-2023 [facility] Office/Clinic Note Chief Complaint Elevated BPs HPI Staff Reason for Visit: Here for follow up for HTN. Pt states that he had a a procedure on his throat and then had his bp check after. Pt states that it was elevated at that visit. Pt states that 5 days ago he started with a headache, Thursday had fatigue, chest pain and generalized chest pain. Pt did double his Lasix for the last 3 days. current medication: Lasix 20 mg Daily, spironolactone 50 mg Daily How often you check your blood pressure? N/A What are your average readings? N/A Have you had any ER visits or any hospitalizations since last visit? no Patient denies any acute injury/trauma, delirium, seizures, vision changes, nausea, vomiting, back pain. Pt denies recent use of tobacco, decongestants/sudafed , albuterol, NSAIDs. Pt is taking medications as prescribed and is tolerating well. No med side effects. Have you had any recent cardiopulmonary testing? no Orthostatic BPs: Layin/58 Sittin/70 Standin/62 Depression: 0 ROBY: N/A Last Labs done: 07/24/2023 Covid Vaccine: Yes Flu Vaccine: No Smoker: Former History of Present Illness Patient here for follow-up he has been having significantly elevated blood pressures and headaches since the EGC on the , has had trouble sleeping, took melatonin having chest discomfort and more SOB recently. extreme fatigue reported . extra lasix x 3 days Patient on Lasix and spironolactone due to ascites and liver failure, no blood pressure medication currently on his list, patient with headaches, no slurred speech unilateral weakness neurological deficits numbness or tingling that is worse than usual or paresthesias, no feeling of ataxia or dysarthria 08/30 Patient recently had a procedure done esophageal banding endoscopically with Dr. Evans due to his diagnosis of cirrhosis during the procedure- reviewed procedure and ECG tracing he notably had high blood pressure readings Cellulitis Hx: no redness, wrath, pain today- well healing per patient Patient had a recent visit to the urgent care September 21 and was started on antibiotics for possible cellulitis Keflex 3 times a day for 5 days, he also follows with vascular surgery His last visit with me was August 26 14-day TCM he was hospitalized for cellulitis and an abscess after the wound care center found an abscess that they were unable to debride or drain and he was placed on IV antibiotics and kept overnight, he had been repacking the wound he follows up with wound care in [place] Review of Systems PHQ Score Initial Depression Screen Score: 0 SCORE Physical Exam Vitals & Measurements HR: 72(Peripheral) RR: 18 BP: 128/54 BP: 120/70(Sitting) BP: 128/62(Standing) BP: 118/58(Supine) SpO2: 100% HT: 67 in HT: 170 cm WT: 67.8 kg WT: 149.16 lb BMI: 23.46 General: Well developed, well nourished, in no acute distress Skin: Good turgor, intact, improved lower extremity edema per patient report, not visualized today, slight jaundice noticed Eyes: Scleral jaundice , lids are normal, pupils equal round reactive to light and accommodation Nose: No deformity, discharge, inflammation, or lesions Mouth: Mucous membranes moist. Normal oropharynx, and posterior pharynx without lesions or exudates. Tongue normal poor dentition Neck: Neck supple. No masses or palpable cervical nodes. Trachea midline. Thyroid without nodules, masses, tenderness, or enlargement Lungs: Sounds are clear bilaterally. No wheezing rhonchi or crackles on exam. Cardio: S1, S2, regular rhythm. No murmurs gallops or rubs. Abdomen: Soft, no reproducible epigastric pain, nontender Musculoskeletal: No deformity or scoliosis noted. Normal range of motion. Joints normal. No erythema, edema, effusion, or ecchymosis Extremity: Patient walked in on his own without gait abnormality. Patient is wearing bilateral lower extremity compression stockings. No acute lower extremity edema pedal edema no calf tenderness negative Homans' sign bilaterally. Patient is neurovascularly intact. Neurological: oriented x 4, LOC appropriate for age, CN II-XII intact, motor strength equal & normal bilaterally, sensation equal & normal bilaterally, speech normal Psychiatric: cooperative? , affect appropriate for age? , normal? judgement, normal? psychiatric thoughts. Assessment/Plan 1. Chest pain (R07.9: Chest pain, unspecified) May be related to his recent esophageal procedure, it has been persistent since the procedure the 24th EKG done in the office today due to complaints of chest pain headache dizziness and fatigue and shortness of breath with exertion EKG sinus rhythm 64 there are changes noted to lateral and inferior leads some ST changes in lead III aVF, could be early repolarization but nothing to compare it to, normal AK interval, intraventricular conduction delay noted Called and spoke to [facility] patient refuses to go to our emergency department here locally at [facility], he refuses to take an ambulance today despi (more content not included)... Normal [facility] Comment on above: Result Comment: Elec tronically Signed By: Lisa Padilla\.br\Date and Time Signed: 10/08/23 11:59 EST Physician Referralon 024 Physician Referral [id number] Normal [facility] IntraOperative Documentson 0 10-07-2023 IntraOperative Documents [id number]. 00TIFF Normal [facility] Main OR Intraoperative Recor don 10-02-2023 Main OR Intraoperative Record IntraOp Document Type FT Summary Primary Physician: Mario Evans MD Finalized Date/Time: 10/02/23 13:30:19 Pt. Name: RAMOWILL/Sex: 1985 Male Med Rec #: [id number] Physician: Mario Evans MD Financial #: [id number] Pt. Type: O Room/Bed: / Admit/Disch: 09/30/23 08:56:29 - 09/30/23 23:59:59 Institution: Case Times FT Entry 1 Patient Times In Room 09/30/23 10:06:00 Out Room 09/30/23 10:19:00 Procedure Times Start 09/30/23 10:10:00 Stop 09/30/23 10:17:00 Anesthesia Times Start 09/30/23 10:06:00 Stop 09/30/23 10:19:00 Last Modified By: Jessica GREER, Alondra Ball 09/30/23 10:19:17 General Comments: 10/02/23 chart opened per Yasmine Spangler RN for charge review. [place] Case Attendance FT Entry 1 Entry 2 Entry 3 Case Attendee Bang Pichardo RN, Roldan Matthews Role Performed Anesthesiologist Reel Film Inspector - Primary Scrub - Primary Control Room Helper Time In 09/30/23 10:06:00 09/30/23 10:06:00 09/30/23 10:06:00 Time Out 09/30/23 10:19:00 09/30/23 10:19:00 09/30/23 10:19:00 Procedure EGD(.) EGD(.) EGD(.) Comments Dr. Howell supervising case Last Modified By: Jessica GREER, Alondra Lopez RN, Alondra Lopez RN, Alondra Ball 09/30/23 10:19:19 F 09/30/23 10:19:19 F 09/30/23 10:19:19 Entry 4 Case Attendee Mario Evans MD Role Performed Surgeon - Primary Time In 09/30/23 10:06:00 Time Out 09/30/23 10:19:00 Procedure EGD(.) Comments Last Modified By: Jessica GREER, Alondra Ball 09/30/23 10:19:19 Perioperative Protocols FT Pre-Care Text: Implements protective measures prior to operative or invasive procedure, confirms identity before the operative or invasive procedure, verifies operative procedure, surgical site, and laterality Entry 1 Procedure(s) EGD(.) Patient Identity Birthday, ID Band Verified (select at Check, Patient least 2): Participation Consents / H and P Anesthesia Consent, Operative Site N/A Verified HandP, Surgery/Procedure Marking Verified Consent Surgical Site No Laterality Verified n/a Verified Procedure Verified Yes Correct Patient Yes Position Verified Availability Equipment, Medication Prep Dry n/a Verified (If Applicable) PreOp Antibiotic No Time Out Bang Pichardo Dendinger RN, Tatyana Wayne Micala E, Mario Evans MD Time Out Complete 09/30/23 10:07:00 Outcomes Met? Yes Last Modified By: Jessica GREER, Alondra Ball 09/30/23 10:09:14 Post-Care Text: The patient is free from signs and symptoms of injury caused by extraneous objects Allergy Information FT Pre-Care Text: Verifies allergies Entry 1 Allergies Reviewed? Yes Allergies Reviewed Self/Patient With Outcomes Met? Yes Last Modified By: Alondra Lopez RN 09/30/23 10:09:19 Post-Care Text: The patient received appropriate medication(s) safely administered during the perioperative period Surgical Procedures FT Entry 1 Procedure Description Procedure EGD Modifiers . Surgeon Description EGD with esophageal varices banding x3. Primary Procedure Yes Primary Surgeon Nathan MULTANI, Mario Xiong Start 09/30/23 10:10:00 Stop 09/30/23 10:17:00 Anesthesia Type General Surgical Service Gastroenterology Wound Class 2 - Clean-Contaminated Last Modified By: Alondra Lopez RN 09/30/23 10:17:42 General Case Data FT Pre-Care Text: Classifies surgical wound, implements aseptic technique, initiates traffic control Entry 1 Case Information OR ENDO 1 FT Case Level Level 2 Wound Class 2 - Clean-Contaminated Specialty Gastroenterology ASA Class 3 Preop Diagnosis Alcoholic liver Postop Same As Preop No cirrhosis Postop Diagnosis Large esophageal Outcomes Met? Yes varices, esophagitis, portal hypertension gastropathy Last Modified By: Alondra Lopez RN 09/30/23 10:12:34 Post-Care Text: The patient is free from signs and symptoms of infection Skin Assessment (Pre Procedure) FT Pre-Care Text: Implements protective measures to prevent skin/ tissue injury due to thermal or mechanical sources Evaluates for signs and symptoms of physical injury to skin and tissue Entry 1 Skin Integrity Intact, [place], Warm, and Skin Abnormality No Dry Outcomes Met? Yes Last Modified By: Alondra Lopez RN 09/30/23 10:09:45 Post-Care Text: The patient is free from signs and symptoms of injury caused by extraneous objects Patient Positioning FT Pre-Care Text: Identifies physical alterations that require additional precautions for procedure-specific positioning, verifies presence of prosthetics or corrective devices, positions the patient, evaluates the patient for signs and symptoms of injury as a result of positioning Entry 1 Procedure EGD(.) Body Position Lateral, right side up Feet Uncrossed? Yes Left Arm Position Resting at Side Right Arm Position Resting at Side Left Leg (more content not included)... Normal [facility]enton 10-01-2023 Consent [id number] .00TIFF Normal [facility] Discharge Instructionson Discharge Instructions [id number] .00TIFF Normal [facility] Postoperative Documentson Postoperative Documents [id number] .00TIFF Normal [facility] Progress Noteson 10-01-2023 [employer] Authentication Interface Message Text Hematology AND Oncology Clinic Note Reason for Consult: Hemolytic anemia Alcoholic cirrhosis Thrombocytopenia Long-term steroid use Referring Provider: Afua Umanzor MD No chief complaint on file. History of Present Illness Will Anderson is a 38 year old male with hx of excessive [...] slowly coming back to normal. Interval visit 10/01/2023 he currently feels well overall. Complaint with [...] and headaches. Endo/Heme/Allergies: Does not bruise/bleed easily. Psychiatric/Behaviora l: Negative for depression, substance abuse and suicidal ideas. The patient is not nervous/anxious and does not have insomnia. 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 Followed with Rheum at [facility] Open fracture of other and unspecified [...] 120 min Stress: Stress Concern Present (02/27/2023) [place] [place] [employer] - Occupational Stress Questionnaire Feeling of Stress : Very much Social Connections: Socially Isolated (02/27/2023) Social Connection and Isolation Panel [NHANES] Frequency of Communication with Friends and Family: More than three times a week Frequency of Social Gatherings with Friends and Family: Patient refused Attends [employer] Services: Never Active Member of Clubs or Organizations: No Attends Club or Organization Meetings: Never Marital Status: Never Intimate Partner Violence: Not At Risk (02/27/2023) Humiliation, Afraid, Rape, and Kick questionnaire Fear of Current or Ex-Partner: No Emotionally Abused: No Physically Abused: No Sexually Abused: No CURRENT MEDICATIONS: Current Outpatient Medications Medication Sig Dispense Refill lactulose 10 g/15 mL oral solution take 30 milliliter by mouth four times a day if needed -TITRATE TO 2 TO 3 BOWEL MOVEMENTS/DAY 946 mL 3 sulfamethoxazole-trim ethoprim 800-160 MG (Bactrim DS) 800-160 MG per tab (more content not included)... Normal [facility] Consent for Treatmenton 09-08 Consent for Treatment [id number] .00TIFF Normal [facility] Discharge Instructionson Discharge Instructions WILL ANDERSON :1985 Visit Date:09/30/2023 Inpatient Discharge Instructions Your Care Team Admitting Physician - Mario Evans MD Referring Physician - Mario Evans MD Reason for Your Visit ALCOHOLIC LIVER CIRRHOSIS Your Diagnosis Alcoholic cirrhosis This Is Your Medications List Misc Prescription (Misc DME Prescription) Misc Prescription (Misc DME Prescription) Misc Prescription (Misc DME Prescription) Misc Prescription (Misc DME Prescription) folic acid (folic acid 1 mg Tab) furosemide (furosemide 20 mg Tab) lactulose (lactulose 10 g/15 mL Oral Syrup) lidocaine topical (lidocaine 3% topical gel) lidocaine topical (lidocaine Top 5% film Patch) multivitamin (Tab-A-Scott oral tablet) mycophenolate mofetil (mycophenolate mofetil 500 mg oral tablet) ondansetron (Zofran ODT 4 mg Tab-Dis) potassium chloride (Potassium Chloride (Mbr-Yvrl-Vws M20) 20 mEq oral tablet, extended release) spironolactone (spironolactone 50 mg Tab) sulfamethoxazole-trim ethoprim (Bactrim) Procedure History I and D, Jaw. Discharge Vitals Temperature (Temporal Artery) 36.3 ?C Heart Rate (Monitored) 92 Respiratory Rate 17 Blood Pressure 171/88 Height 170 cm Weight 69 kg BMI 23.88 What to do next Instructions From Your Doctor Event Name Event Result Discharge Activity Resume normal activities in 24 hours Discharge Restrictions No driving for 24 hrs Discharge Diet(s) Other: Start with liquid diet, advance as tolerated Call Your Doctor For Persistent or heavy bleeding [facility] Discharge Instructions Previously Scheduled Follow-Up Appointments 2023 11:20 AM EST With: Lisa Padilla Where: [facility] Normal [address] [place] [address]- \.br\ New Follow Up Appointments after Discharge\.br\ Follow Up with Nathan MULTANI, Mario Xiong, [facility], [facility] When: \.br\ Comments:\.br\ office will call for follow up\.br\ Where:\.br\ [address], [address] [facility] [address]\.br\ [place] [address]-\.br\ [phone]\.br\ Medications\.br\ What How Much When Why Instructions Next Dose\.br\ New ondansetron (Zofran ODT 4 mg Tab-Dis) 1 Tablets By Mouth Every 8 hours as needed for Nausea/Vomiting Refills: 12 Pickup at [id number]\.br\ Unchanged folic acid (folic acid 1 mg Tab) 1 Tablets By Mouth Every day\.br\ Unchanged furosemide (furosemide 20 mg Tab) 1 Tablets By Mouth Every day\.br\ Unchanged lactulose (lactulose 10 g/ 15 mL Oral Syrup) 30 Milliliter By Mouth 4 times a day\.br\ Unchanged lidocaine topical (lidocaine 3% topical gel) See instructions Venous ulcer of right leg Abscess of left leg excluding foot Topical BID apply a thin film to the affected areas may substitute for 2 % if this is not available \.br\ Unchanged lidocaine topical (lidocaine Top 5% film Patch) 1 Patches Topical Every day Abscess of left leg excluding foot apply 12 hours on and 12 hours off daily remove patches after 12 hours may substitute for 4 % patches if insurance coverage issue \.br\ Unchanged Misc Prescription (Misc DME Prescription) See instructions [place] SAP Dressing 4 x 4 dressing \.br\ Unchanged Misc Prescription (Misc DME Prescription) See instructions LiquidIV hydration \.br\ Unchanged Misc Prescription (Misc DME Prescription) See instructions Collagen Matrix with ORC and Silver dressing \.br\ Unchanged Misc Prescription (Misc DME Prescription) See instructions Muscle & joint balm CBD 880mg \.br\ Unchanged multivitamin (Tab-A-Scott oral tablet) 1 Tablets By Mouth Every day\.br\ Unchanged mycophenolate mofetil (mycophenolate mofetil 500 mg oral tablet) 1 Tablets By Mouth 2 times a day\.br\ Unchanged potassium chloride (Potassium Chloride (Idh-Zvim-Zjx M20) 20 mEq oral tablet, extended release) 1 Tablets By Mouth 2 times a day\.br\ Unchanged spironolactone (spironolactone 50 mg Tab) 1 Tablets By Mouth Every day\.br\ Unchanged sulfamethoxazole- trimethoprim (Bactrim) By Mouth taskes 3 times a week \.br\ Pharmacy Information\.br\ [id number]: [address] [place], [place] [id number] [phone]\.br\ Test Results\.br\ No qualifying data available.\.br\ Allergies\.br\ amoxicillin (Unknown)\.br\ penicillin (unknown)\.br\ Problems\.br\ Ongoing - Any problem that you are currently receiving treatment for.\.br\ Abscess of left leg excluding foot\.br\ Alcohol abuse\.br\ Alcohol use disorder in remission\.br\ Anemia\.br\ BMI 23.0-23.9, adult\.br\ Cellulitis of leg, right\.br\ Elevated blood pressure reading\.br\ Elevated fasting glucose\.br\ Elevated INR\.br\ Elevated liver enzymes\.br\ Hypokalemia\.br\ Liver cirrhosis, alcoholic\.br\ Low serum albumin\.br\ Screening for lipid disorders\.br\ Smokeless tobacco use\.br\ Thrombocytopenia\ .br\ Venous ulcer of right leg\.br\ Historical - Any problem that you are no longer receiving treatment for.\.br\ Denies\.br\ Heavy alcohol use\.br\ Education Materials\.br\ Upper Endoscopy, Adult, Care After\.br\ After the procedure, it is common to have a sore throat. It is also common to have:\.br\ ? \.br\ Mild stomach pain or discomfort.\.br\ ? \.br\ Bloating.\.br\ ? \.br\ Nausea.\.br\ Follow these instructions at home:\.br\ \.br\ The instructions below may help you care for yourself at home. Your health care provider may give you more instructions. If you have questions, ask your health care provider.\.br\ ? \.br\ If you were given a sedative during the procedure, it can affect you for several hours. Do not drive or operate machinery until your health care provider says that it is safe.\.br\ ? \.br\ If you will be going home right after the procedure, plan to have a responsible adult:\.br\ ? \.br\ Take you home from the hospital or clinic. You will not be allowed to drive.\.br\ ? \.br\ Care for you for the time you are told.\.br\ ? \.br\ Follow instructions from your health care provider about what you may eat and drink.\.br\ ? \.br\ Return to your normal activities as told by your health care provider. Ask your health care provider what activities are safe for you.\.br\ ? \.br\ Take jzjn-ugv-wvlshum and prescription medicines only as told by your health care provider.\.br\ Contact a health care provider if you:\.br\ ? \.br\ Have a sore throat that lasts longer than one day.\.br\ ? \.br\ Have trouble swallowing.\.br\ ? \.br\ Have a fever.\.br\ Get help right away if you:\.br\ ? \.br\ Vomit blood or your vomit looks like coffee grounds.\.br\ ? \.br\ Have bloody, black, or tarry stools.\.br\ ? \.br\ Have a very bad sore throat or you cannot swallow.\.br\ ? \.br\ Have difficulty breathing or very bad pain in your chest or abdomen.\.br\ These symptoms may be an emergency. Get help right away. Call 911.\.br\ ? \.br\ Do not wait to see if the symptoms will go away.\.br\ ? \.br\ Do not drive yourself to the hospital.\.br\ Summary\.br\ ? \.br\ After the procedure, it is common to have a sore throat, mild stomach discomfort, bloating, and nausea.\.br\ ? \.br\ If you were given a sedative during the procedure, it can affect you for several hours. Do not drive until your health care provider says that it is safe.\.br\ ? \.br\ Follow instructions from your health care provider about what you may eat and drink.\.br\ ? \.br\ Return to your normal activities as told by your health care provider.\.br\ This information is not intended to replace advice given to you by your health care provider. Make sure you discuss any questions you have with your health care provider.\.br\ Document Revised: 12/03/2022 Document Reviewed: 12/03/2022 [employer] Patient Education ? 2022 [employer].\.br\ Esophageal Varices\.br\ \.br\ Esophageal varices are enlarged veins in the part of the body that moves food from the mouth to the stomach (esophagus). They develop when extra blood is forced to flow through these veins because the blood's normal flow is blocked. Without treatment, esophageal varices eventually break and bleed (hemorrhage), which can be life-threatening. \.br\ What are the causes?\.br\ This condition may be caused by:\.br\ ? \.br\ Scarring of the liver due to alcoholism. This is the most common cause.\.br\ ? \.br\ Long-term liver disease.\.br\ ? \.br\ Severe heart failure.\.br\ ? \.br\ A blood clot in a vein that supplies the liver.\.br\ ? \.br\ A disease that causes inflammation in the organs and other body areas.\.br\ What are the signs or symptoms?\.br\ Esophageal varices usually do not cause symptoms unless they start to bleed. Symptoms of bleeding esophageal varices include:\.br\ ? \.br\ Vomiting material that is bright red or that is black and looks like coffee grounds.\.br\ ? \.br\ Coughing up blood.\.br\ ? \.br\ Stools (feces) that look black and tarry.\.br\ ? \.br\ Dizziness or light-headedness. \.br\ ? \.br\ Low blood pressure.\.br\ ? \.br\ Loss of consciousness.\.b r\ How is this diagnosed?\.br\ This condition is diagnosed with a procedure called endoscopy. During endoscopy, your health care provider uses a flexible tube with a small camera o [facility] Comment on above: Result Comment: Elec tronically Signed By: Jaylene Villasenor RN\.br\Date and Time Signed: 09/30/23 11:01 EST Discharge Instructions CINDY ANDERSONZAHIDA Friedman :1985 Visit Date:09/30/2023 Inpatient Discharge Instructions Your Care Team Admitting Physician - Mario Evans MD Referring Physician - Mario Evans MD Reason for Your Visit ALCOHOLIC LIVER CIRRHOSIS Your Diagnosis Alcoholic cirrhosis This Is Your Medications List Misc Prescription (Misc DME Prescription) Misc Prescription (Misc DME Prescription) Misc Prescription (Misc DME Prescription) Misc Prescription (Misc DME Prescription) folic acid (folic acid 1 mg Tab) furosemide (furosemide 20 mg Tab) lactulose (lactulose 10 g/15 mL Oral Syrup) lidocaine topical (lidocaine 3% topical gel) lidocaine topical (lidocaine Top 5% film Patch) multivitamin (Tab-A-Scott oral tablet) mycophenolate mofetil (mycophenolate mofetil 500 mg oral tablet) ondansetron (Zofran ODT 4 mg Tab-Dis) potassium chloride (Potassium Chloride (Vge-Ngtv-Mbw M20) 20 mEq oral tablet, extended release) spironolactone (spironolactone 50 mg Tab) sulfamethoxazole-trim ethoprim (Bactrim) Procedure History I and D, Jaw. Discharge Vitals Temperature (Temporal Artery) 36.3 ?C Heart Rate (Monitored) 92 Respiratory Rate 17 Blood Pressure 171/88 Height 170 cm Weight 69 kg BMI 23.88 What to do next Instructions From Your Doctor Event Name Event Result Discharge Activity Resume normal activities in 24 hours Discharge Restrictions No driving for 24 hrs Discharge Diet(s) Other: Start with liquid diet, advance as tolerated Call Your Doctor For Persistent or heavy bleeding Pharmacy Information [facility] Discharge Instructions Discharge Instructions Previously Scheduled Follow-Up Appointments 2023 11:20 AM EST With: Lisa Padilla Where: [facility] [address] [place] [address]- \.br\ New Follow Up Appointments after Discharge\.br\ Follow Up with Nathan MULTANI, Mario Xiong [facility], [facility] When: \.br\ Comments:\.br\ office will call for follow up\.br\ Where:\.br\ [address], [address] [facility] [address]\.br\ [place] [address].br\ [phone]\.br\ Medications\.br\ What How Much When Why Instructions Next Dose\.br\ New ondansetron (Zofran ODT 4 mg Tab-Dis) 1 Tablets By Mouth Every 8 hours as needed for Nausea/Vomiting Refills: 12 Pickup at [facility] #[id number]\.br\ Unchanged folic acid (folic acid 1 mg Tab) 1 Tablets By Mouth Every day\.br\ Unchanged furosemide (furosemide 20 mg Tab) 1 Tablets By Mouth Every day\.br\ Unchanged lactulose (lactulose 10 g/ 15 mL Oral Syrup) 30 Milliliter By Mouth 4 times a day\.br\ Unchanged lidocaine topical (lidocaine 3% topical gel) See instructions Venous ulcer of right leg Abscess of left leg excluding foot Topical BID apply a thin film to the affected areas may substitute for 2 % if this is not available \.br\ Unchanged lidocaine topical (lidocaine Top 5% film Patch) 1 Patches Topical Every day Abscess of left leg excluding foot apply 12 hours on and 12 hours off daily remove patches after 12 hours may substitute for 4 % patches if insurance coverage issue \.br\ Unchanged Misc Prescription (Misc DME Prescription) See instructions [place] SAP Dressing 4 x 4 dressing \.br\ Unchanged Misc Prescription (Misc DME Prescription) See instructions LiquidIV hydration \.br\ Unchanged Misc Prescription (Misc DME Prescription) See instructions Collagen Matrix with ORC and Silver dressing \.br\ Unchanged Misc Prescription (Misc DME Prescription) See instructions Muscle & joint balm CBD 880mg \.br\ Unchanged multivitamin (Tab-A-Scott oral tablet) 1 Tablets By Mouth Every day\.br\ Unchanged mycophenolate mofetil (mycophenolate mofetil 500 mg oral tablet) 1 Tablets By Mouth 2 times a day\.br\ Unchanged potassium chloride (Potassium Chloride (Wov-Lznk-Zgl M20) 20 mEq oral tablet, extended release) 1 Tablets By Mouth 2 times a day\.br\ Unchanged spironolactone (spironolactone 50 mg Tab) 1 Tablets By Mouth Every day\.br\ Unchanged sulfamethoxazole- trimethoprim (Bactrim) By Mouth taskes 3 times a week \.br\ Pharmacy Information\.br\ [id number]: [address] [place], [place] [id number] [phone]\.br\ Test Results\.br\ No qualifying data available.\.br\ Allergies\.br\ amoxicillin (Unknown)\.br\ penicillin (unknown)\.br\ Problems\.br\ Ongoing - Any problem that you are currently receiving treatment for.\.br\ Abscess of left leg excluding foot\.br\ Alcohol abuse\.br\ Alcohol use disorder in remission\.br\ Anemia\.br\ BMI 23.0-23.9, adult\.br\ Cellulitis of leg, right\.br\ Elevated blood pressure reading\.br\ Elevated fasting glucose\.br\ Elevated INR\.br\ Elevated liver enzymes\.br\ Hypokalemia\.br\ Liver cirrhosis, alcoholic\.br\ Low serum albumin\.br\ Screening for lipid disorders\.br\ Smokeless tobacco use\.br\ Thrombocytopenia\ .br\ Venous ulcer of right leg\.br\ Historical - Any problem that you are no longer receiving treatment for.\.br\ Denies\.br\ Heavy alcohol use\.br\ Education Materials\.br\ Upper Endoscopy, Adult, Care After\.br\ After the procedure, it is common to have a sore throat. It is also common to have:\.br\ ? \.br\ Mild stomach pain or discomfort.\.br\ ? \.br\ Bloating.\.br\ ? \.br\ Nausea.\.br\ Follow these instructions at home:\.br\ \.br\ The instructions below may help you care for yourself at home. Your health care provider may give you more instructions. If you have questions, ask your health care provider.\.br\ ? \.br\ If you were given a sedative during the procedure, it can affect you for several hours. Do not drive or operate machinery until your health care provider says that it is safe.\.br\ ? \.br\ If you will be going home right after the procedure, plan to have a responsible adult:\.br\ ? \.br\ Take you home from the hospital or clinic. You will not be allowed to drive.\.br\ ? \.br\ Care for you for the time you are told.\.br\ ? \.br\ Follow instructions from your health care provider about what you may eat and drink.\.br\ ? \.br\ Return to your normal activities as told by your health care provider. Ask your health care provider what activities are safe for you.\.br\ ? \.br\ Take znoe-ixq-gfjwibu and prescription medicines only as told by your health care provider.\.br\ Contact a health care provider if you:\.br\ ? \.br\ Have a sore throat that lasts longer than one day.\.br\ ? \.br\ Have trouble swallowing.\.br\ ? \.br\ Have a fever.\.br\ Get help right away if you:\.br\ ? \.br\ Vomit blood or your vomit looks like coffee grounds.\.br\ ? \.br\ Have bloody, black, or tarry stools.\.br\ ? \.br\ Have a very bad sore throat or you cannot swallow.\.br\ ? \.br\ Have difficulty breathing or very bad pain in your chest or abdomen.\.br\ These symptoms may be an emergency. Get help right away. Call 911.\.br\ ? \.br\ Do not wait to see if the symptoms will go away.\.br\ ? \.br\ Do not drive yourself to the hospital.\.br\ Summary\.br\ ? \.br\ After the procedure, it is common to have a sore throat, mild stomach discomfort, bloating, and nausea.\.br\ ? \.br\ If you were given a sedative during the procedure, it can affect you for several hours. Do not drive until your health care provider says that it is safe.\.br\ ? \.br\ Follow instructions from your health care provider about what you may eat and drink.\.br\ ? \.br\ Return to your normal activities as told by your health care provider.\.br\ This information is not intended to replace advice given to you by your health care provider. Make sure you discuss any questions you have with your health care provider.\.br\ Document Revised: 12/03/2022 Document Reviewed: 12/03/2022 [employer] Patient Education ? 2022 [employer].br\ Esophageal Varices\.br\ \.br\ Esophageal varices are enlarged veins in the part of the body that moves food from the mouth to the stomach (esophagus). They develop when extra blood is forced to flow through these veins because the blood's normal flow is blocked. Without treatment, esophageal varices eventually break and bleed (hemorrhage), which can be life-threatening. \.br\ What are the causes?\.br\ This condition may be caused by:\.br\ ? \.br\ Scarring of the liver due to alcoholism. This is the most common cause.\.br\ ? \.br\ Long-term liver disease.\.br\ ? \.br\ Severe heart failure.\.br\ ? \.br\ A blood clot in a vein that supplies the liver.\.br\ ? \.br\ A disease that causes inflammation in the organs and other body areas.\.br\ What are the signs or symptoms?\.br\ Esophageal varices usually do not cause symptoms unless they start to bleed. Symptoms of bleeding esophageal varices include:\.br\ ? \.br\ Vomiting material that is bright red or that is black and looks like coffee grounds.\.br\ ? \.br\ Coughing up blood.\.br\ ? \.br\ Stools (feces) that look black and tarry.\.br\ ? \.br\ Dizziness or light-headedness. \.br\ ? \.br\ Low blood pressure.\.br\ ? \.br\ Loss of consciousness.\.b r\ How is this diagnosed?\.br\ This condition is diagnosed with a procedure called endoscopy. During endoscopy, your health care provider uses a flexible tube with a small camera o [facility] Comment on above: Result Comment: Elec tronically Signed By: Jaylene Villasenor RN\.br\Date and Time Signed: 09/30/23 10:59 EST Discharge Instructions WILL ANDERSON :1985 Visit Date:09/30/2023 Inpatient Discharge Instructions Your Care Team Admitting Physician - Mario Evans MD Referring Physician - Nathan MULTANI, Mario Xiong Reason for Your Visit ALCOHOLIC LIVER CIRRHOSIS Your Diagnosis Alcoholic cirrhosis This Is Your Medications List Misc Prescription (Misc DME Prescription) Misc Prescription (Misc DME Prescription) Misc Prescription (Misc DME Prescription) Misc Prescription (Misc DME Prescription) folic acid (folic acid 1 mg Tab) furosemide (furosemide 20 mg Tab) lactulose (lactulose 10 g/15 mL Oral Syrup) lidocaine topical (lidocaine 3% topical gel) lidocaine topical (lidocaine Top 5% film Patch) multivitamin (Tab-A-Scott oral tablet) mycophenolate mofetil (mycophenolate mofetil 500 mg oral tablet) ondansetron (Zofran ODT 4 mg Tab-Dis) potassium chloride (Potassium Chloride (Cab-Apzy-Bdw M20) 20 mEq oral tablet, extended release) spironolactone (spironolactone 50 mg Tab) sulfamethoxazole-trim ethoprim (Bactrim) Procedure History I and D, Jaw. Discharge Vitals Temperature (Temporal Artery) 36.3 ?C Heart Rate (Monitored) 92 Respiratory Rate 17 Blood Pressure 171/88 Height 170 cm Weight 69 kg BMI 23.88 What to do next Instructions From Your Doctor Event Name Event Result Discharge Activity Resume normal activities in 24 hours Discharge Restrictions No driving for 24 hrs Discharge Diet(s) Other: Start with liquid diet, advance as tolerated Call Your Doctor For Persistent or heavy bleeding Pharmacy Information [facility] Discharge Instructions Discharge Instructions Previously Scheduled Follow-Up Appointments 2023 11:20 AM EST With: Lisa Padilla Where: [facility] Normal [address], [place] [address]- \.br\ New Follow Up Appointments after Discharge\.br\ Follow Up with Nathan MULTANI, Mario Xiong, [facility], MED When: \.br\ Comments:\.br\ office will call for follow up\.br\ Where:\.br\ [address], [address]\.br\ [place] [address]-\.br\ [phone]\.br\ Medications\.br\ What How Much When Why Instructions Next Dose\.br\ New ondansetron (Zofran ODT 4 mg Tab-Dis) 1 Tablets By Mouth Every 8 hours as needed for Nausea/Vomiting Refills: 12 Pickup at [id number]\.br\ Unchanged folic acid (folic acid 1 mg Tab) 1 Tablets By Mouth Every day\.br\ Unchanged furosemide (furosemide 20 mg Tab) 1 Tablets By Mouth Every day\.br\ Unchanged lactulose (lactulose 10 g/ 15 mL Oral Syrup) 30 Milliliter By Mouth 4 times a day\.br\ Unchanged lidocaine topical (lidocaine 3% topical gel) See instructions Venous ulcer of right leg Abscess of left leg excluding foot Topical BID apply a thin film to the affected areas may substitute for 2 % if this is not available \.br\ Unchanged lidocaine topical (lidocaine Top 5% film Patch) 1 Patches Topical Every day Abscess of left leg excluding foot apply 12 hours on and 12 hours off daily remove patches after 12 hours may substitute for 4 % patches if insurance coverage issue \.br\ Unchanged Misc Prescription (Misc DME Prescription) See instructions [place] SAP Dressing 4 x 4 dressing \.br\ Unchanged Misc Prescription (Misc DME Prescription) See instructions LiquidIV hydration \.br\ Unchanged Misc Prescription (Misc DME Prescription) See instructions Collagen Matrix with ORC and Silver dressing \.br\ Unchanged Misc Prescription (Misc DME Prescription) See instructions Muscle & joint balm CBD 880mg \.br\ Unchanged multivitamin (Tab-A-Scott oral tablet) 1 Tablets By Mouth Every day\.br\ Unchanged mycophenolate mofetil (mycophenolate mofetil 500 mg oral tablet) 1 Tablets By Mouth 2 times a day\.br\ Unchanged potassium chloride (Potassium Chloride (Bkb-Iwmy-Uhh M20) 20 mEq oral tablet, extended release) 1 Tablets By Mouth 2 times a day\.br\ Unchanged spironolactone (spironolactone 50 mg Tab) 1 Tablets By Mouth Every day\.br\ Unchanged sulfamethoxazole- trimethoprim (Bactrim) By Mouth taskes 3 times a week \.br\ Pharmacy Information\.br\ [id number]: [address] [place], [place] [id number] [phone]\.br\ Test Results\.br\ No qualifying data available.\.br\ Allergies\.br\ amoxicillin (Unknown)\.br\ penicillin (unknown)\.br\ Problems\.br\ Ongoing - Any problem that you are currently receiving treatment for.\.br\ Abscess of left leg excluding foot\.br\ Alcohol abuse\.br\ Alcohol use disorder in remission\.br\ Anemia\.br\ BMI 23.0-23.9, adult\.br\ Cellulitis of leg, right\.br\ Elevated blood pressure reading\.br\ Elevated fasting glucose\.br\ Elevated INR\.br\ Elevated liver enzymes\.br\ Hypokalemia\.br\ Liver cirrhosis, alcoholic\.br\ Low serum albumin\.br\ Screening for lipid disorders\.br\ Smokeless tobacco use\.br\ Thrombocytopenia\ .br\ Venous ulcer of right leg\.br\ Historical - Any problem that you are no longer receiving treatment for.\.br\ Denies\.br\ Heavy alcohol use\.br\ Education Materials\.br\ Upper Endoscopy, Adult, Care After\.br\ After the procedure, it is common to have a sore throat. It is also common to have:\.br\ ? \.br\ Mild stomach pain or discomfort.\.br\ ? \.br\ Bloating.\.br\ ? \.br\ Nausea.\.br\ Follow these instructions at home:\.br\ \.br\ The instructions below may help you care for yourself at home. Your health care provider may give you more instructions. If you have questions, ask your health care provider.\.br\ ? \.br\ If you were given a sedative during the procedure, it can affect you for several hours. Do not drive or operate machinery until your health care provider says that it is safe.\.br\ ? \.br\ If you will be going home right after the procedure, plan to have a responsible adult:\.br\ ? \.br\ Take you home from the hospital or clinic. You will not be allowed to drive.\.br\ ? \.br\ Care for you for the time you are told.\.br\ ? \.br\ Follow instructions from your health care provider about what you may eat and drink.\.br\ ? \.br\ Return to your normal activities as told by your health care provider. Ask your health care provider what activities are safe for you.\.br\ ? \.br\ Take hmbj-glg-aiujwsu and prescription medicines only as told by your health care provider.\.br\ Contact a health care provider if you:\.br\ ? \.br\ Have a sore throat that lasts longer than one day.\.br\ ? \.br\ Have trouble swallowing.\.br\ ? \.br\ Have a fever.\.br\ Get help right away if you:\.br\ ? \.br\ Vomit blood or your vomit looks like coffee grounds.\.br\ ? \.br\ Have bloody, black, or tarry stools.\.br\ ? \.br\ Have a very bad sore throat or you cannot swallow.\.br\ ? \.br\ Have difficulty breathing or very bad pain in your chest or abdomen.\.br\ These symptoms may be an emergency. Get help right away. Call 911.\.br\ ? \.br\ Do not wait to see if the symptoms will go away.\.br\ ? \.br\ Do not drive yourself to the hospital.\.br\ Summary\.br\ ? \.br\ After the procedure, it is common to have a sore throat, mild stomach discomfort, bloating, and nausea.\.br\ ? \.br\ If you were given a sedative during the procedure, it can affect you for several hours. Do not drive until your health care provider says that it is safe.\.br\ ? \.br\ Follow instructions from your health care provider about what you may eat and drink.\.br\ ? \.br\ Return to your normal activities as told by your health care provider.\.br\ This information is not intended to replace advice given to you by your health care provider. Make sure you discuss any questions you have with your health care provider.\.br\ Document Revised: 12/03/2022 Document Reviewed: 12/03/2022 [employer] Patient Education ? 2022 [employer].br\ Esophageal Varices\.br\ \.br\ Esophageal varices are enlarged veins in the part of the body that moves food from the mouth to the stomach (esophagus). They develop when extra blood is forced to flow through these veins because the blood's normal flow is blocked. Without treatment, esophageal varices eventually break and bleed (hemorrhage), which can be life-threatening. \.br\ What are the causes?\.br\ This condition may be caused by:\.br\ ? \.br\ Scarring of the liver due to alcoholism. This is the most common cause.\.br\ ? \.br\ Long-term liver disease.\.br\ ? \.br\ Severe heart failure.\.br\ ? \.br\ A blood clot in a vein that supplies the liver.\.br\ ? \.br\ A disease that causes inflammation in the organs and other body areas.\.br\ What are the signs or symptoms?\.br\ Esophageal varices usually do not cause symptoms unless they start to bleed. Symptoms of bleeding esophageal varices include:\.br\ ? \.br\ Vomiting material that is bright red or that is black and looks like coffee grounds.\.br\ ? \.br\ Coughing up blood.\.br\ ? \.br\ Stools (feces) that look black and tarry.\.br\ ? \.br\ Dizziness or light-headedness. \.br\ ? \.br\ Low blood pressure.\.br\ ? \.br\ Loss of consciousness.\.b r\ How is this diagnosed?\.br\ This condition is diagnosed with a procedure called endoscopy. During endoscopy, your health care provider uses a flexible tube with a small camera o [facility] Comment on above: Result Comment: Elec tronically Signed By: Jaylene Villasenor RN\.br\Date and Time Signed: 09/30/23 10:38 EST Endoscopic Procedure Report - Otheron 09-30-2023 Endoscopic Procedure Report - Other Patient: WILL ANDERSON Age: 38 years Sex: Male : 1985 Associated Diagnoses: None Author: Mario Evans MD Pre-Procedure Procedure Date 09/30/2023 10:17:00 . Procedure Type: Esophagogastroduodeno scopy with band ligation of varices. Procedure provider Performed by Mario Evans MD. Current history and physical Documented on chart. Informed Consent After discussing the rationale, risks and benefits, and alternatives to this procedure, the patient provided signed consent for the procedure. Pre-procedure diagnosis: Cirrhosis, varices screening. Medications Anticoagulant/antipla telet none. ASA Classification: Class III. . Monitoring: See anesthesia record. . Anticoagulation use: Procedure The procedure was performed in the hospital. See anesthesia record for sedation given during procedure. The patient was positioned starting in the left lateral decubitus position and with safety measures. Endoscope type used was an adult-size, introduced orally, advanced to the 3rd portion of the duodenum. No difficulty was encountered during the procedure. Views were excellent. The patient tolerated the procedure well. Extent reached: Duodenum third portion Findings 1. Large esophageal varices noted, 3 bands were placed 2. Severe portal hypertensive gastropathy (PHG) in the entire stomach noted. 3. Normal duodenum. Post-Procedure Complications: none. Estimated blood loss: Minimal. Specimens: none. Devices/ implants: variceal bands. Impression and Plan 1. Large esophageal varices noted, 3 bands were placed 2. Severe portal hypertensive gastropathy (PHG) in the entire stomach noted. 3. Normal duodenum. Recommendations: -Liquid diet then soft diet today, advance as tolerated tomorrow -Resume home medications -Repeat EGD in 4 weeks for retreatment Normal [facility] Comment on above: Result Comment: Elec tronically Signed By: Nathan MULTANI, Mario Xiong\.br\Date and Time Signed: 09/30/23 10:18 EST Inpatient Patient Summaryon 09-30-2023 Inpatient Patient Summary [address] [address] [facility] Clinical Discharge Instructions PERSON INFORMATION Name: WILL ANDERSON [facility]#:[id number] PHYSICIANS Admitting Physician: Nathan MULTANI, Mario Xiong Attending Physician: Mario Evans MD PCP: Lisa Padilla Discharge Diagnosis: Alcoholic cirrhosis Comment: PATIENT EDUCATION INFORMATION Instructions: Upper Endoscopy, Adult, Care After; Esophageal Varices Medication Leaflets: Follow up: With: Address: When: Nathan MULTANI, Mario Xiong, [facility], [address], [address] [phone] Comments: office will call for follow up Type Location Start Finish State Open [facility] 10/01/2023 11:20 AM 10/01/2023 11:40 AM Confirmed Open [facility] 10/28/2023 9:00 AM 10/28/2023 9:20 AM Confirmed MEDICATION LIST New Medications [id number], [address] [place] [address], [place] [id number], [phone] ondansetron (Zofran ODT 4 mg Tab-Dis) 1 Tablets By Mouth every 8 hours as needed Nausea/Vomiting. Refills: 12. Medications to Continue with No Changes Other Medications folic acid (folic acid 1 mg Tab) 1 Tablets By Mouth every day. furosemide (furosemide 20 mg Tab) 1 Tablets By Mouth every day. lactulose (lactulose 10 g/15 mL Oral Syrup) 30 Milliliter By Mouth 4 times a day. lidocaine topical (lidocaine 3% topical gel) Topical BID apply a thin film to the affected areas may substitute for 2 % if this is not available. Refills: 0. lidocaine topical (lidocaine Top 5% film Patch) 1 Patches Topical every day. apply 12 hours on and 12 hours off daily remove patches after 12 hours may substitute for 4 % patches if insurance coverage issue. Refills: 0. Misc Prescription (Misc DME Prescription) [place] SAP Dressing 4 x 4 dressing. Misc Prescription (Misc DME Prescription) LiquidIV hydration. Misc Prescription (Misc DME Prescription) Collagen Matrix with ORC and Silver dressing. Misc Prescription (Misc DME Prescription) Muscle & joint balm CBD 880mg. multivitamin (Tab-A-Scott oral tablet) 1 Tablets By Mouth every day. mycophenolate mofetil (mycophenolate mofetil 500 mg oral tablet) 1 Tablets By Mouth 2 times a day. potassium chloride (Potassium Chloride (Hsd-Xmif-Lsz M20) 20 mEq oral tablet, extended release) 1 Tablets By Mouth 2 times a day. Refills: 3. spironolactone (spironolactone 50 mg Tab) 1 Tablets By Mouth every day. sulfamethoxazole-trim ethoprim (Bactrim) By Mouth. taskes 3 times a week. Comment: Normal [facility] Main OR PACU I Recordon 09-08 Main OR PACU I Record PACU Phase I Document Type FT Summary Primary Physician: Mario Evans MD Finalized Date/Time: 09/30/23 11:42:43 Pt. Name: RAMOWILL/Sex: 1985 Male Med Rec #: [id number] Physician: Mario Evans MD Financial #: [id number] Pt. Type: O Room/Bed: / Admit/Disch: 09/30/23 08:56:29 - Institution: Case Times PACU I FT Pre-Care Text: Identifies barriers to communication and implements measures to provide psychological support Develops individualized plan of care, and ensures continuity of care Maintains patient's dignity and privacy, and maintains patient confidentiality Identifies and reports philosophical, cultural, and spiritual beliefs and values Identifies individual values and wishes concerning care Implements aseptic technique, and administers prescribed antibiotic therapy and immunizing agents as ordered Evaluates postoperative tissue perfusion Implements thermoregulation measures, and monitors body temperature Evaluates postoperative respiratory status Evaluates postoperative cardiac status Evaluates postoperative neurological status Assesses pain control, collaborated in initiating patient-controlled analgesia and implements alternative methods of pain control Verifies allergies, administers prescribed medications and solutions, evaluates response to medications Entry 1 In PACU I 09/30/23 10:21:00 Discharge from PACU 09/30/23 11:25:00 I Outcomes Met? Yes Last Modified By: Jaylene Villasenor RN 09/30/23 11:41:34 Post-Care Text: The patient demonstrates knowledge of the expected response to the operative or invasive procedure The patient's care is consistent with the individualized perioperative plan of care The patient's right to privacy is maintained The patient's value system, lifestyle, ethnicity, and culture are considered, respected, and incorporated into the perioperative plan of care The patient participates in decisions affecting his or her perioperative plan of care The patient is free from signs and symptoms of infection The patient has wound/tissue perfusion consistent with or improved from baseline levels established preoperatively The patient is at or returning to normothermia at the conclusion of the immediate postoperative period The patient's respiratory function is consistent with or improved from baseline levels established preoperatively The patient's cardiovascular status is consistent with or improved from baseline levels established preoperatively The patient's cardiovascular status is consistent with or improved from baseline levels established preoperatively The patient demonstrates and/or reports adequate pain control throughout the perioperative period The patient received appropriate medication(s), safely administered during the perioperative period Acuity Level PACU I FT Entry 1 Start Time 09/30/23 10:21:00 Stop Time 09/30/23 11:25:00 Acuity Level Acuity Level I Last Modified By: Jaylene Villasenor RN 09/30/23 11:42:31 General Comments: pt here longer due to pt needing medicated and had to wait for pharmacy to mix medication Finalized By: Jaylene Villasenor RN Document Signatures Signed By: Jaylene Villasenor RN 09/30/23 11:42 Normal [facility] Main OR Preoperative Recordo n 09-30-2023 Main OR Preoperative Record Holding Area Document Type FT Summary Primary Physician: Mario Evans MD Finalized Date/Time: 09/30/23 09:19:16 Pt. Name: WILL ANDERSON/Sex: 1985 Male Med Rec #: [id number] Physician: Mario Evans MD Financial #: [id number] Pt. Type: O Room/Bed: / Admit/Disch: 09/30/23 08:56:29 - Institution: Case Times Holding FT Pre-Care Text: Verifies consent for planned procedure, identifies individual values and wishes concerning care, includes family members in perioperative teaching Secures patient's records' belongings, and valuables, maintains patient's dignity and privacy, and maintains patient confidentiality Entry 1 In Holding 09/30/23 09:16:00 Outcomes Met? Yes Last Modified By: Ivis Ware RN 09/30/23 09:18:25 Post-Care Text: The patient participates in decisions affecting his or her perioperative plan of care The patient's right to privacy is maintained Surgery Checklist FT Entry 1 Patient Birthday, ID Band Procedure History and Physical, Identification: Check, Patient Verification: Surgical Consent, With Participation Patient NPO after Midnight: Yes Date/Time: 09/30/23 00:00:00 Personal Items none Limitations: none Comment: Complaints of Pain: Yes Pain Comment: bilat. leg pain Operative Site n/a Availability Equipment Marking: Verified: Does Patient Smoke No Patient states Yes Comment - Adult Father- Rich postop adult Supervision supervision available Case Cancelled in No Holding Area see comments below for reason Last Modified By: Ivis Ware RN 09/30/23 09:19:11 Finalized By: Ivis Ware RN Document Signatures Signed By: Ivis Ware RN 09/30/23 09:19 Normal [facility] Monitor Recordon 09-30-2023 Monitor Record [id number]# 1.00TIFF Normal [facility] Monitor Record [id number]# 1.00TIFF Normal [facility] Outpatient Surgery Discharge Instructionon 09-30-2023 Outpatient Surgery Discharge Instruction [place] [id number] Patient Discharge Instructions PERSON INFORMATION Name: WILL ANDERSON Date of : 1985 Current Date: 09/30/2023 10:59:40 PHYSICIANS Admitting Physician: Nathan MULTANI, Mario Xiong Discharge Diagnosis: Alcoholic cirrhosis WILL ANDERSON has been given the following list of follow-up instructions, prescriptions, and patient education materials: PATIENT FOLLOW-UP INFORMATION Diet: Other: Start with liquid diet, advance as tolerated Discharge Activity: Resume normal activities in 24 hours Discharge Restrictions: No driving for 24 hrs Call Your Doctor For: Persistent or heavy bleeding IF UNABLE TO CONTACT YOUR PHYSICIAN AND YOU FEEL IT IS AN EMERGENCY, GO TO THE NEAREST EMERGENCY ROOM OR CALL 911 IRAMO AMOS J, have received the attached patient education materials/instruction s and have verbalized understanding: May we do a follow up call? Yes No I was present when discharge instructions were given Patient Signature Date Clinican/Nurse Signature Date Follow up: With: Address: When: Nathan MULTANI, Mario Xiong, [address], [facility] [address] [phone] Comments: office will call for follow up Type Location Start Finish State Open [facility] 10/01/2023 11:20 AM 10/01/2023 11:40 AM Confirmed Open [facility] 10/28/2023 9:00 AM 10/28/2023 9:20 AM Confirmed Pharmacy Information: [facility] You may receive a survey from Sam Valentin asking you to rate your care experience. Your feedback is important and will help us understand what we do well and how we can improve the quality of care we provide to you, your loved ones and our community. It?s an honor to serve you. Thank you for choosing [facility] HERE ARE THE MEDICATION CHANGES THAT OCCURRED DURING YOUR HOSPITAL STAY New Medications [id number], [address] [place] [id number], [phone] ondansetron (Zofran ODT 4 mg Tab-Dis) 1 Tablets By Mouth every 8 hours as needed Nausea/Vomiting. Refills: 12. Medications to Continue with No Changes Other Medications folic acid (folic acid 1 mg Tab) 1 Tablets By Mouth every day. furosemide (furosemide 20 mg Tab) 1 Tablets By Mouth every day. lactulose (lactulose 10 g/15 mL Oral Syrup) 30 Milliliter By Mouth 4 times a day. lidocaine topical (lidocaine 3% topical gel) Topical BID apply a thin film to the affected areas may substitute for 2 % if this is not available. Refills: 0. lidocaine topical (lidocaine Top 5% film Patch) 1 Patches Topical every day. apply 12 hours on and 12 hours off daily remove patches after 12 hours may substitute for 4 % patches if insurance coverage issue. Refills: 0. Misc Prescription (Misc DME Prescription) [place] SAP Dressing 4 x 4 dressing. Misc Prescription (Misc DME Prescription) LiquidIV hydration. Misc Prescription (Misc DME Prescription) Collagen Matrix with ORC and Silver dressing. Misc Prescription (Misc DME Prescription) Muscle & joint balm CBD 880mg. multivitamin (Tab-A-Scott oral tablet) 1 Tablets By Mouth every day. mycophenolate mofetil (mycophenolate mofetil 500 mg oral tablet) 1 Tablets By Mouth 2 times a day. potassium chloride (Potassium Chloride (Vcf-Qjfg-Vkm M20) 20 mEq oral tablet, extended release) 1 Tablets By Mouth 2 times a day. Refills: 3. spironolactone (spironolactone 50 mg Tab) 1 Tablets By Mouth every day. sulfamethoxazole-trim ethoprim (Bactrim) By Mouth. taskes 3 times a week. PATIENT EDUCATION INFORMATION Instructions: Upper Endoscopy, Adult, Care After After the procedure, it is common to have a sore throat. It is also common to have: ? Mild stomach pain or discomfort. ? Bloating. ? Nausea. Follow these instructions at home: The instructions below may help you care for yourself at home. Your health care provider may give you more instructions. If you have questions, ask your health care provider. ? If you were given a sedative during the procedure, it can affect you for several hours. Do not drive or operate machinery until your health care provider says that it is safe. ? If you will be going home right after the procedure, plan to have a responsible adult: ? Take you home from the hospital or clinic. You will not be allowed to drive. ? Care for you for the time you are told. ? Follow instructions from your health care provider about what you may eat and drink. ? Return to your normal activities as told by your health care provider. Ask your healt (more content not included)... [facility] Progress Note-Physicianon Progress Note-Physician Patient: WILL ANDERSON Age: 38 years Sex: Male : 1985 Associated Diagnoses: None Author: [facility]hes[facility] ()Petar Postoperative Information Postoperative disposition: Postoperative disposition: To PACU. Anesthetic utilized: General. Health Status Allergies: Allergic Reactions (Selected) Severity Not Documented Amoxicillin- Unknown. Penicillin- Unknown. Current medications: (Selected) Inpatient Medications Ordered Lactated Ringers IV Paulina 1000 mL 1,000 mL: 1,000 mL, IV, 100 mL/hr, Routine, Start date 09/30/23 10:32:00 EST, 10 hour(s), Total volume (mL): 1,000, 69 kg, 1.81, m2 Sodium Chloride 0.9% IV Paulina 1000 mL 1,000 mL: 1,000 mL, IV, 20 mL/hr, Routine, Start date 09/30/23 6:40:00 EST, 50 hour(s), Total volume (mL): 1,000, 70.1 kg, 1.82, m2 Zofran 4 mg/2 mL Injection: 8 mg = 4 mL, Injection, IV Push, Once, Stop date 09/30/23 10:35:00 EST, Routine, Start date 09/30/23 10:35:00 EST, 09/30/23 10:35:00 EST Prescriptions Prescribed Potassium Chloride (Mmi-Cmor-Ttg M20) 20 mEq oral tablet, extended release: 20 mEq = 1 tab(s), Oral, BID, # 30 tab(s), Refills(s) 3, Pharmacy: [facility] #[id number], 170, cm, 07/24/23 7:59:00 EST, Height/Length Dosing, 73.5, kg, 07/24/23 7:59:00 EST, Weight Dosing Zofran ODT 4 mg Tab-Dis: 4 mg = 1 tab(s), Oral, q8hr, PRN Nausea/Vomiting, # 60 tab(s), Refills(s) 12, Pharmacy: [facility] #[id number], 170, cm, 09/30/23 9:19:00 EST, Height/Length Dosing, 69, kg, 09/30/23 9:19:00 EST, Weight Dosing lidocaine 3% topical gel: See Instructions, 28.5 gm, Refill(s) 0, Topical BID apply a thin film to the affected areas may substitute for 2 % if this is not available, [facility] #[id number], 170, cm, 08/26/23 9:52:00 EST, Height/Length Dosing, 68.5, kg, 08/26/23 9:52:00 EST, Phan... lidocaine Top 5% film Patch: 1 patch(es), Topical, Daily, 30 patch(es), Refill(s) 0, apply 12 hours on and 12 hours off daily remove patches after 12 hours may substitute for 4 % patches if insurance coverage issue, [facility] #[id number], 170, cm, 08/26/23 9:52:00 EST, Height/Length... Documented Medications Documented Bactrim: Oral, Refill(s) 0, taskes 3 times a week Misc DME Prescription: See Instructions, Collagen Matrix with ORC and Silver dressing Misc DME Prescription: See Instructions, [place] SAP Dressing 4 x 4 dressing Misc DME Prescription: See Instructions, LiquidIV hydration Misc DME Prescription: See Instructions, Muscle & joint balm CBD 880mg Tab-A-Scott oral tablet: 1 tab(s), Oral, Daily, Refill(s) 0, Prophylaxis folic acid 1 mg Tab: 1 mg = 1 tab(s), Oral, Daily, Refills(s) 0, Prophylaxis furosemide 20 mg Tab: 20 mg = 1 tab(s), Oral, Daily, Refills(s) 0, diuretic/water pill lactulose 10 g/15 mL Oral Syrup: 20 gm = 30 mL, Oral, QID, # 480 mL, Refills(s) 0, Other (see comment) mycophenolate mofetil 500 mg oral tablet: 500 mg = 1 tab(s), Oral, BID, Refills(s) 0, Other (see comment) spironolactone 50 mg Tab: 50 mg = 1 tab(s), Oral, Daily, Refills(s) 0, diuretic/water pill, Home Medications (15) Active Bactrim , Oral folic acid 1 mg Tab 1 mg = 1 tab(s), Oral, Daily furosemide 20 mg Tab 20 mg = 1 tab(s), Oral, Daily lactulose 10 g/15 mL Oral Syrup 20 gm = 30 mL, Oral, QID lidocaine 3% topical gel See Instructions lidocaine Top 5% film Patch 1 patch(es), Topical, Daily Misc DME Prescription See Instructions Misc DME Prescription See Instructions Misc DME Prescription See Instructions Misc DME Prescription See Instructions mycophenolate mofetil 500 mg oral tablet 500 mg = 1 tab(s), Oral, BID Potassium Chloride (Wsq-Rjtn-Tjf M20) 20 mEq oral tablet, extended release 20 mEq = 1 tab(s), Oral, BID spironolactone 50 mg Tab 50 mg = 1 tab(s), Oral, Daily Tab-A-Scott oral tablet 1 tab(s), Oral, Daily Zofran ODT 4 mg Tab-Dis 4 mg = 1 tab(s), PRN, Oral, q8hr Problem list: All Problems Abscess of left leg excluding foot / SNOMED CT 244492648 / Confirmed Alcohol abuse / SNOMED CT 51759573 / Confirmed Alcohol use disorder in remission / SNOMED CT 80174895 / Confirmed Anemia / SNOMED CT 271670366 / Confirmed BMI 23.0-23.9, adult / SNOMED CT 6561137272 / Confirmed Cellulitis of leg, right / SNOMED CT 497607669330450 / Confirmed Elevated blood pressure reading / SNOMED CT 634958041 / Confirmed Elevated fasting glucose / SNOMED CT 051134641 / Confirmed Elevated INR / SNOMED CT 9382436258 / Confirmed Elevated liver enzymes / SNOMED CT 2143776664 / Confirmed Hypokalemia / SNOMED CT 30753794 / Confirmed Liver cirrhosis, alcoholic / SNOMED CT 8556451545 / Confirmed Low serum albumin / SNOMED CT 1474999004 / Confirmed Screening for lipid disorders / SNOMED CT 518733569 / Confirmed Smokeless tobacco use / SNOMED CT 2517387060 / Confirmed Thrombocytopenia / SNOMED CT 574730466 / Confirmed Venous ulcer of right leg / SNOMED CT 4055726633 / Confirmed Resolved: Denies / SNOMED CT 663159670 Resolved: Heavy alcohol use / SNOMED CT 334458996 Physical Examin (more content not included)... [facility] Comment on above: Result Comment: Elec tronically Signed By: Petar Steiner DO\.br\Date and Time Signed: 09/30/23 10:40 EST Progress Note-Physician Patient: WILL ANDERSON Age: 38 years Sex: Male : 1985 Associated Diagnoses: None Author: Petar Steiner DO Postoperative Information Postoperative disposition: Postoperative disposition: To PACU. Anesthetic utilized: General. Health Status Allergies: Allergic Reactions (Selected) Severity Not Documented Amoxicillin- Unknown. Penicillin- Unknown. Current medications: (Selected) Inpatient Medications Ordered Sodium Chloride 0.9% IV Paulina 1000 mL 1,000 mL: 1,000 mL, IV, 20 mL/hr, Routine, Start date 09/30/23 6:40:00 EST, 50 hour(s), Total volume (mL): 1,000, 70.1 kg, 1.82, m2 Prescriptions Prescribed Potassium Chloride (Awl-Ctim-Wzv M20) 20 mEq oral tablet, extended release: 20 mEq = 1 tab(s), Oral, BID, # 30 tab(s), Refills(s) 3, [facility]: [facility][id number], 170, cm, 07/24/23 7:59:00 EST, Height/Length Dosing, 73.5, kg, 07/24/23 7:59:00 EST, Weight Dosing Zofran ODT 4 mg Tab-Dis: 4 mg = 1 tab(s), Oral, q8hr, PRN Nausea/Vomiting, # 60 tab(s), Refills(s) 12, [facility]acy: [facility] #[id number], 170, cm, 09/30/23 9:19:00 EST, Height/Length Dosing, 69, kg, 09/30/23 9:19:00 EST, Weight Dosing lidocaine 3% topical gel: See Instructions, 28.5 gm, Refill(s) 0, Topical BID apply a thin film to the affected areas may substitute for 2 % if this is not available, [facility][id number], 170, cm, 08/26/23 9:52:00 EST, Height/Length Dosing, 68.5, kg, 08/26/23 9:52:00 EST, Phan... lidocaine Top 5% film Patch: 1 patch(es), Topical, Daily, 30 patch(es), Refill(s) 0, apply 12 hours on and 12 hours off daily remove patches after 12 hours may substitute for 4 % patches if insurance coverage issue, [facility] #[id number], 170, cm, 08/26/23 9:52:00 EST, Height/Length... Documented Medications Documented Bactrim: Oral, Refill(s) 0, taskes 3 times a week [facility] DME Prescription: See Instructions, Collagen Matrix with ORC and Silver dressing [facility] DME Prescription: See Instructions, [place] SAP Dressing 4 x 4 dressing [facility] DME Prescription: See Instructions, LiquidIV hydration [facility] DME Prescription: See Instructions, Muscle & joint balm CBD 880mg Tab-A-Scott oral tablet: 1 tab(s), Oral, Daily, Refill(s) 0, Prophylaxis folic acid 1 mg Tab: 1 mg = 1 tab(s), Oral, Daily, Refills(s) 0, Prophylaxis furosemide 20 mg Tab: 20 mg = 1 tab(s), Oral, Daily, Refills(s) 0, diuretic/water pill lactulose 10 g/15 mL Oral Syrup: 20 gm = 30 mL, Oral, QID, # 480 mL, Refills(s) 0, Other (see comment) mycophenolate mofetil 500 mg oral tablet: 500 mg = 1 tab(s), Oral, BID, Refills(s) 0, Other (see comment) spironolactone 50 mg Tab: 50 mg = 1 tab(s), Oral, Daily, Refills(s) 0, diuretic/water pill, Home Medications (15) Active Bactrim , Oral folic acid 1 mg Tab 1 mg = 1 tab(s), Oral, Daily furosemide 20 mg Tab 20 mg = 1 tab(s), Oral, Daily lactulose 10 g/15 mL Oral Syrup 20 gm = 30 mL, Oral, QID lidocaine 3% topical gel See Instructions lidocaine Top 5% film Patch 1 patch(es), Topical, Daily Misc DME Prescription See Instructions Misc DME Prescription See Instructions Misc DME Prescription See Instructions Misc DME Prescription See Instructions mycophenolate mofetil 500 mg oral tablet 500 mg = 1 tab(s), Oral, BID Potassium Chloride (Olz-Ytcz-Loh M20) 20 mEq oral tablet, extended release 20 mEq = 1 tab(s), Oral, BID spironolactone 50 mg Tab 50 mg = 1 tab(s), Oral, Daily Tab-A-Scott oral tablet 1 tab(s), Oral, Daily Zofran ODT 4 mg Tab-Dis 4 mg = 1 tab(s), PRN, Oral, q8hr Problem list: All Problems Abscess of left leg excluding foot / SNOMED CT 510231295 / Confirmed Alcohol abuse / SNOMED CT 71972009 / Confirmed Alcohol use disorder in remission / SNOMED CT 95144181 / Confirmed Anemia / SNOMED CT 997379645 / Confirmed BMI 23.0-23.9, adult / SNOMED CT 2652431644 / Confirmed Cellulitis of leg, right / SNOMED CT 021397896498415 / Confirmed Elevated blood pressure reading / SNOMED CT 114186551 / Confirmed Elevated fasting glucose / SNOMED CT 802396006 / Confirmed Elevated INR / SNOMED CT 3256918504 / Confirmed Elevated liver enzymes / SNOMED CT 4623611857 / Confirmed Hypokalemia / SNOMED CT 10182386 / Confirmed Liver cirrhosis, alcoholic / SNOMED CT 1674722485 / Confirmed Low serum albumin / SNOMED CT 4606091403 / Confirmed Screening for lipid disorders / SNOMED CT 624806583 / Confirmed Smokeless tobacco use / SNOMED CT 3374795299 / Confirmed Thrombocytopenia / SNOMED CT 938882750 / Confirmed Venous ulcer of right leg / SNOMED CT 2108236686 / Confirmed Resolved: Denies / SNOMED CT 631151722 Resolved: Heavy alcohol use / SNOMED CT 373702835 Physical Examination Vital Signs 09/30/2023 10:16 EST Systolic Blood Pressure 150 mmHg mmHg Diastolic Blood Pressure 88 mmHg mmHg 09/30/2023 10:15 EST Heart Rate Monitored 84 bpm bpm Respiratory Rate 12 br/min br/min Respiratory Rate Monitored 20 br/min br/min SpO2 100 % % 09/30/2023 10:12 EST Systolic Blood Pressure 136 mmHg mmHg (more content not included)... [facility] Comment on above: Result Comment: Elec tronically Signed By: Dante AGEE)Petar\.br\Date and Time Signed: 09/30/23 10:32 EST Progress Note-Physician Patient: WILL ANDERSON Age: 38 years Sex: Male : 1985 Associated Diagnoses: None Author: Petar Steiner DO Preoperative Information Anesthesia history: Patient history: None. Family history+: None. Anesthesia results Informed consent: Signed by patient. Including risks, benefits, and alternatives related to the: Anesthetic plan, Postoperative pain management plan. Re-evaluation prior to induction: Petar Howell DO. Health Status Allergies: Allergic Reactions (Selected) Severity Not Documented Amoxicillin- Unknown. Penicillin- Unknown., Allergies (2) Active Reaction amoxicillin Unknown penicillin unknown Current medications: (Selected) Inpatient Medications Ordered Sodium Chloride 0.9% IV Paulina 1000 mL 1,000 mL: 1,000 mL, IV, 20 mL/hr, Routine, Start date 09/30/23 6:40:00 EST, 50 hour(s), Total volume (mL): 1,000, 70.1 kg, 1.82, m2 Prescriptions Prescribed Potassium Chloride (Opn-Fegv-Nsx M20) 20 mEq oral tablet, extended release: 20 mEq = 1 tab(s), Oral, BID, # 30 tab(s), Refills(s) 3, [facility]: [facility] #[id number], 170, cm, 07/24/23 7:59:00 EST, Height/Length Dosing, 73.5, kg, 07/24/23 7:59:00 EST, Weight Dosing Zofran ODT 4 mg Tab-Dis: 4 mg = 1 tab(s), Oral, q8hr, PRN Nausea/Vomiting, # 20 tab(s), Refills(s) 0, [facility]: [facility] #[id number], 170, cm, 03/22/23 20:14:00 EDT, Height/Length Dosing, 75.2, kg, 03/22/23 20:14:00 EDT, Weight Dosing lidocaine 3% topical gel: See Instructions, 28.5 gm, Refill(s) 0, Topical BID apply a thin film to the affected areas may substitute for 2 % if this is not available, [facility] #[id number], 170, cm, 08/26/23 9:52:00 EST, Height/Length Dosing, 68.5, kg, 08/26/23 9:52:00 EST, Phan... lidocaine Top 5% film Patch: 1 patch(es), Topical, Daily, 30 patch(es), Refill(s) 0, apply 12 hours on and 12 hours off daily remove patches after 12 hours may substitute for 4 % patches if insurance coverage issue, [facility] #[id number], 170, cm, 08/26/23 9:52:00 EST, Height/Length... Documented Medications Documented Milk Thistle: 1,000 mg, Oral, Daily, Refill(s) 0, Prophylaxis Misc DME Prescription: See Instructions, Collagen Matrix with ORC and Silver dressing Misc DME Prescription: See Instructions, [place] SAP Dressing 4 x 4 dressing Misc DME Prescription: See Instructions, LiquidIV hydration Misc DME Prescription: See Instructions, Muscle & joint balm CBD 880mg Misc Prescription: Bee Venom, Daily Tab-A-Scott oral tablet: 1 tab(s), Oral, Daily, Refill(s) 0, Prophylaxis folic acid 1 mg Tab: 1 mg = 1 tab(s), Oral, Daily, Refills(s) 0, Prophylaxis furosemide 20 mg Tab: 20 mg = 1 tab(s), Oral, Daily, Refills(s) 0, diuretic/water pill lactulose 10 g/15 mL Oral Syrup: 20 gm = 30 mL, Oral, QID, # 480 mL, Refills(s) 0, Other (see comment) mycophenolate mofetil 500 mg oral tablet: 500 mg = 1 tab(s), Oral, BID, Refills(s) 0, Other (see comment) spironolactone 50 mg Tab: 50 mg = 1 tab(s), Oral, Daily, Refills(s) 0, diuretic/water pill, Home Medications (16) Active folic acid 1 mg Tab 1 mg = 1 tab(s), Oral, Daily furosemide 20 mg Tab 20 mg = 1 tab(s), Oral, Daily lactulose 10 g/15 mL Oral Syrup 20 gm = 30 mL, Oral, QID lidocaine 3% topical gel See Instructions lidocaine Top 5% film Patch 1 patch(es), Topical, Daily Milk Thistle 1,000 mg, Oral, Daily Misc DME Prescription See Instructions Misc DME Prescription See Instructions Misc DME Prescription See Instructions Misc DME Prescription See Instructions Misc Prescription 0, Daily mycophenolate mofetil 500 mg oral tablet 500 mg = 1 tab(s), Oral, BID Potassium Chloride (Wsk-Tqnq-Div M20) 20 mEq oral tablet, extended release 20 mEq = 1 tab(s), Oral, BID spironolactone 50 mg Tab 50 mg = 1 tab(s), Oral, Daily Tab-A-Scott oral tablet 1 tab(s), Oral, Daily Zofran ODT 4 mg Tab-Dis 4 mg = 1 tab(s), PRN, Oral, q8hr , Medications (1) Active Scheduled: (0) Continuous: (1) Sodium Chloride 0.9% 1,000 mL 1,000 mL, IV, 20 mL/hr PRN: (0) Problem list: All Problems Abscess of left leg excluding foot / SNOMED CT 203520345 / Confirmed Alcohol abuse / SNOMED CT 56187654 / Confirmed Alcohol use disorder in remission / SNOMED CT 91214635 / Confirmed Anemia / SNOMED CT 547754335 / Confirmed BMI 23.0-23.9, adult / SNOMED CT 2168318542 / Confirmed Cellulitis of leg, right / SNOMED CT 143314524733406 / Confirmed Elevated blood pressure reading / SNOMED CT 803570620 / Confirmed Elevated fasting glucose / SNOMED CT 608644362 / Confirmed Elevated INR / SNOMED CT 0298873517 / Confirmed Elevated liver enzymes / SNOMED CT 7022376616 / Confirmed Hypokalemia / SNOMED CT 54332878 / Confirmed Liver cirrhosis, alcoholic / SNOMED CT 0179361556 / Confirmed Low serum albumin / SNOMED CT 0183048065 / Confirmed Screening for lipid disorders / SNOMED CT 795403346 / Confirmed Smokeless tobacco use / SNOMED CT 9454914290 / Confirmed Thrombocytopenia / SNOMED CT 293918325 (more content not included)... [facility] Comment on above: Result Comment: Elec tronically Signed By: Dante Anesthesiology (), Petar Hooks\.br\Date and Time Signed: 09/30/23 09:23 EST Consent for Procedure/Surger yon 09-23-2023 Consent for Procedure/Surgery [id number] #[email or web address] [facility] Ambulatory Visit Summaryon 0 09-21-2023 Ambulatory Visit Summary WILL ANDERSON :1985 Visit Date:09/21/2023 Ambulatory Visit Instructions Your Diagnosis Spider veins Your Care Team Attending Physician - Keith Patricia PA-C Primary Care Physician - Lisa Padilla This Is Your Medications List cephalexin (Keflex 500 mg Cap) Contact prescribing physician if questions or concerns Misc Prescription Misc Prescription (Misc DME Prescription) Misc Prescription (Misc DME Prescription) Misc Prescription (Misc DME Prescription) Misc Prescription (Misc DME Prescription) folic acid (folic acid 1 mg Tab) furosemide (furosemide 20 mg Tab) gabapentin (gabapentin 300 mg Cap) lactulose (lactulose 10 g/15 mL Oral Syrup) lidocaine topical (lidocaine 3% topical gel) lidocaine topical (lidocaine Top 5% film Patch) milk thistle (Milk Thistle) multivitamin (Tab-A-Scott oral tablet) mycophenolate mofetil (mycophenolate mofetil 500 mg oral tablet) ondansetron (Zofran ODT 4 mg Tab-Dis) potassium chloride (Potassium Chloride (Tjx-Yqjt-Bmc M20) 20 mEq oral tablet, extended release) spironolactone (spironolactone 50 mg Tab) Procedures Performed I and D, Jaw. Discharge Vitals Temperature (Oral) 36.7 ?C Heart Rate (Peripheral) 73 Respiratory Rate 18 Blood Pressure 156/78 Height 170 cm Height 67 in Weight 70.1 kg Weight 154.22 lb BMI 24.26 What to do next Scheduled Follow-Up Appointments Thursday 10:15 AM EST With: Where: [facility] Thursday 9:00 AM EST With: Lisa Padilla Where: [facility] Family Medicine Office/Clini c Noteon 09-21-2023 Family Medicine Office/Clinic Note Chief Complaint cellulitus left thigh HPI Staff 38 year old male presents with possible cellulitis on left leg, pt states Thursday he felt some pain on his left thigh, pt states it is red, warm, and painful. Symptoms started Thursday History of Present Illness I have reviewed and verified the staff HPI to be accurate for this encounter. Portions of this record have been created with voice recognition software. Occasional wrong-word or ?suslq-z-fprh? substitutions may have occurred due to the inherent limitations of voice recognition software. 38-year-old male with history of cellulitis and abscess presents to convenient care today with chief complaint of left groin pain. 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 States when he took off his overalls he noticed what he thought was a small area of redness to the left inner groin area which was somewhat painful to touch and warm to touch. Patient has concern in regards to developing cellulitis. Patient states a history of varicosities in which she was seen a vein treatment office for improvement states he now wears bilateral lower extremity compression stockings daily. He denies any recent lower extremity edema no pedal edema denies any lower calf pain or tenderness. Patient states he came in for further evaluation and he did take an old doxycycline tablet that he had on Thursday. Patient states that he had an area at the left lower calf region on 1 occasion in August in which he states was growing in size while he was on a vein treatment clinic he had a look at the left side in which they were concerned for abscess. Patient was told to go to the [place] emergency department at that time which she states they had to open up the left lower extremity and did admit the patient he states for abscess. States initially was prescribed doxycycline and then taken off of that medication and change to something different following culture return. Patient states he currently takes Bactrim every third day as he takes CellCept for history of a blood disorder. States when taking other antibiotics typically he discontinues the Bactrim and then restarts after completion. He denies any numbness tingling or weakness of the left lower extremity to states some pain and discomfort. Denies fever or chills. Denies weakness but states he overslept today past his alarm. He has no other concerns at this time. Medication to amoxicillin and penicillin which patient notes rash states allergy was when he was a child. Believes he has tolerated Keflex or cefdinir in the past. Review of Systems PHQ Score Initial Depression Screen Score: 0 SCORE ROS negative unless otherwise stated in HPI. Physical Exam Vitals & Measurements T: 36.7 ?C(Oral) HR: 73(Peripheral) RR: 18 BP: 156/78 SpO2: 99% HT: 67 in HT: 170 cm WT: 70.1 kg WT: 154.22 lb BMI: 24.26 General: Well developed, well nourished, in no acute distress Eyes: not assessed Ears: not assessed Nose: not addressed Mouth: not assessed Neck: not assessed Lungs: Sounds are clear bilaterally. No wheezing rhonchi or crackles on exam. Cardio: S1, S2, regular rhythm. No murmurs gallops or rubs. Abdomen: not assessed Musculoskeletal: No deformity or scoliosis noted. Normal range of motion. Joints normal. No erythema, edema, effusion, or ecchymosis Extremity: Patient walked back into convenient care on his own without gait abnormality. Patient is wearing bilateral lower extremity compression stockings. No acute lower extremity edema pedal edema no calf tenderness negative Homans' sign bilaterally. At the left inner groin region patient has a very small what appears to be spider vein area. There is no underlying palpable cords no red streaking or concerns for phlebitis. No surrounding area of erythema warmth or concern for acute cellulitis or infection. No acute tenderness to the area. No deformities or crepitus. No acute lacerations abrasions or lesions. No focal deficits. Patient is neurovascularly intact. Neurologic: not assessed Skin: See extremity note Mental Status: Alert and oriented x3. Normal mood and affect Assessment/Plan I discussed with patient I do not have any acute concern in regards for acute cellulitis at this time. Discussed with patient that he should monitor this area very closely and watch for spreading redness more so on the skin surface. There is no underlying induration or concern for abscess development at this time. No concern for underlying palpable cords or blood clots at this time. Discussed with patient as he has great concern for cellulitis that we could use Keflex 3 times daily x 5 days duration for more so prevention of infection with patient's worry of developing cellulitis. Patient is in agreement with this plan he will follow closely with primary care provider and or return if needed. Patie (more content not included)... [facility] Comment on above: Result Comment: Elec tronically Signed By: Harshad PARKER, Keith Underwood\.br\Date and Time Signed: 09/21/23 21:05 EST Transfer Inon 09-09-2023 Transfer In [id number]#1 .00TIFF [facility] US Liveron 09-05-2023 US Liver Exam [...] Barrera MD Transcribed by: JUNIOR Technologist: TANIKA [facility] Consent for Procedure/Surger yon 09-03-2023 Consent for Procedure/Surgery [id number]# 1.00TIFF [facility] Consent for Treatmenton 08-08 Consent for Treatment [id number]#1 .00TIFF [facility] Ambulatory Visit Summaryon 1 11-02-2022 Ambulatory Visit Summary WILL ANDERSON :1985 Visit Date:09/01/2023 Ambulatory Visit Instructions Your Diagnosis Alcohol use disorder in remission Elevated liver enzymes Liver cirrhosis, alcoholic Hemolytic anemia Smokeless tobacco use BMI 23.0-23.9, adult Your Care Team Attending Physician - Nathan MULTANI, Mario Xiong Primary Care Physician - Lisa Padilla Referring [...] 4 mg Tab-Dis) potassium chloride (Potassium Chloride (Zkx-Uwza-Ijs M20) 20 mEq oral tablet, extended release) spironolactone (spironolactone 50 mg Tab) sulfamethoxazole-trim ethoprim Procedures Performed I and D, Jaw. Discharge Vitals Heart Rate (Peripheral) 80 Respiratory Rate 18 Blood Pressure 140/80 Height 67 in Height 170 cm Weight 151.8 lb Weight 69 kg BMI 23.88 What to do next Scheduled Follow-Up Appointments 2022 9:00 AM EST With: Where: [facility] Thursday 9:00 AM EST With: Lisa Padilla Where: [facility] Gastroenterology Office/Clin ic Noteon 09-01-2023 Gastroenterology [...] then He had a biopsy done at [facility] in January 2023, he had hepatic [...] due, last one was around January and [facility] report not available - Transplant Status: [...] B C Panel Alpha Fetoprotein Tumor Marker Ioowt-5-Tnrgqkvvudi GEOVANNA w/Reflex if POS Antimitochondrial Antibody, Quantitative [...] tab(s), Oral (more content not included)... [facility] Comment on above: Result Comment: Elec [...] to immunocompromised status. Pt was discharged from [facility] care. Pt has to repack his wound daily per wound care. Pt is still with wound care in [place]. Pt would like an Rx 2% lidocaine gel for when he is packing his wound and for managing the pain. Pain: 4-5 Feels Like: achy, sore Better/Worse: Lidocaine gel and rest Wound Care Appointment: Next wk Depression: 0 ROBY: N/A Last Labs done: 08/12/2023, [facility] Covid Vaccine: Yes Flu Vaccine: No History of Present Illness The patient presents for evaluation of multiple medical concerns. Will Anderson is a 37-year-old male who is here for 14-day TCM. He was recently discharged from [facility]. He went there with an abscess, incision, [...] following the wound care clinic out of [place] as well as seeing a vascular surgeon out of [place] due to chronic lower edema and varicosities. [...] no adenopathy, (more content not included)... 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 How is this treated? This condition may [...] or perfumes. Medicines ? Take or use huxf-uyj-dywfuez and prescription medicines only as told by [...] ? Soreness. ? (more content not included)... [facility] Operative Reporton 3 Operative Report [id number]#1 .00TIFF [facility] Nursing Assessment - Woundon 08-14-2023 Nursing Assessment - Wound [id number]# 1.00TIFF [facility] Multi-Wound Charton 08-10-20 23 Multi-Wound Chart [id number]# 2.00TIFF [facility] Nursing Assessment - Woundon 08-10-2023 Nursing Assessment - Wound [id number]# 1.00TIFF [facility] Nursing Note - Woundon 08-10 Nursing Note - Wound [id number] 12 [id number]# 1.00TIFF [facility] Physician Orderon 08-10-2023 Physician Order [id number]# 1.00TIFF [facility] Physician Order [id number] 0 [id number]# 1.00TIFF [facility] Procedure - Woundon 08-10-20 23 Procedure - Wound [id number] 2 [id number]# 1.00TIFF [facility] Progress Note - Woundon 12-0 Progress Note - Wound [id number]# 1.00TIFF [facility] Consent for Treatmenton -3 Consent for Treatment [id number]#1 .00TIFF [facility] Transfer Inon 08-06-2023 Transfer In [id number] 1 [id number]#1 .00TIFF [facility] Transfer In [id number] 1 [id number]#1 .00TIFF [facility] Transfer In [id number] 0 [id number]#1. 00TIFF [facility] Consent for Treatmenton 11-2 Consent for Treatment [id number]#1 .00TIFF [facility] Ambulatory Visit Summaryon 09-26-2022 Ambulatory Visit [...] 4 mg Tab-Dis) potassium chloride (Potassium Chloride (Zbu-Xdxu-Pvu M20) 20 mEq oral tablet, extended release) spironolactone (spironolactone 50 mg Tab) sulfamethoxazole-trim ethoprim [Image Removed: STOP]Stop taking these medications clindamycin (clindamycin 150 mg Cap) Procedures Performed Jaw. What to do next Scheduled Follow-Up Appointments Thursday 10:15 AM EST With: Kartik WALDEN, MARIANNN, TANMAY, Leslie Portillo Where: Dietary 2022 9:30 AM EST With: Teddy Hitchcock MD Where: [facility] Thursday 7:20 AM EST With: Lisa Padilla Where: [facility] Invalid Interpretation Code Thrombocytopenia [facility] Physician Orderon 07-27-2023 Physician Order [id number]#1 .00TIFF [facility] Ambulatory Visit Summaryon 1 09-23-2022 Ambulatory [...] 4 mg Tab-Dis) potassium chloride (Potassium Chloride (Mdk-Aksx-Uuq M20) 20 mEq oral tablet, extended release) spironolactone (spironolactone 50 mg Tab) sulfamethoxazole-trim ethoprim [Image Removed: STOP]Stop taking these medications clindamycin (clindamycin 150 mg Cap) Procedures Performed Jaw. Discharge Vitals Heart Rate (Peripheral) 79 Respiratory Rate 16 Blood Pressure 132/76 Height 170 cm Height 67 in Weight 73.5 kg Weight 161.7 lb BMI 25.43 What to do next Scheduled Follow-Up Appointments 2022 9:30 AM EST With: Coretta MULTANI, Teddy Rodarte Where: [facility] Medications What How Much When Why Instructions New potassium chloride (Potassium Chloride (Mot-Aojn-Zen M20) 20 mEq oral tablet, extended release) 1 Tablets By Mouth 2 times a day Refills: 3 Pickup at [facility] #21502 Changed gabapentin (gabapentin 300 mg Cap) 1 Capsules By Mouth 2 times a day Leg pain Pickup at [facility] #40060 Changed ondansetron (Zofran ODT 4 mg Tab-Dis) [...] Misc Prescription (Misc DME Prescription) See instructions [place] SAP Dressing 4 x 4 dressing Unchanged [...] 1 Tablets By Mouth Every day Unchanged sulfamethoxazole-trim ethoprim 80 Milligram By Mouth Take on Thursday, and Thursday Pharmacy Information [id number]: [address] [place], [place] [id number] [phone] What How Much When Comments Stop Taking [...] you for choosing us for your care. [facility] Auth for Release of Medical Recordson 07-24-2023 Auth for Release of Medical Records [id number]#1. 00TIFF [facility] Auth for Release of Medical Records [id number]#1 .00TIFF [facility] Auth for Release of Medical Records [id number]#1. 00TIFF [facility] CHEMISTRYOrdered By: Huber Jha on 07-24-2023 Albumin DL <= 20 mg/L (U) [Mass/Vol] microgram/mL Normal 0.0 - 19.0 mcg/mL [facility] Remis ol Albumin Elph (U) [Mass fraction] mg/dL Invalid Interpretation Code [facility] Remisol Comment on above: Interpretive Data: T he reference range and other method performance specifications have not been established for this test; results should be integrated into the clinical context for interpretation. Creatinine (U) [Mass/Vol] 22.5 mg/dL Invalid Interpretation Code [facility] Comment on above: Interpretive Data: T he reference range and other method performance specifications have not been established for this test; results should be integrated into the clinical context for interpretation. U Prot/Creat Ratio [facility] Invalid Interpretation Code 0.00 - 200.00 [facility]ini [facility] Noteon 07-24-2023 [...] be in one place except for his [place], DR Tanvir BLACK. Pt is currently with wound care at [facility]. Pt is also seeing a vascular specialist in [place]. Depression: Baseline PHQ9: 2 ROBY: Baseline: 5 [...] C -biopsy in January of liver - [facility] edema/ swelling- lactulose/ lasix Former Chronic alcohol use, 3-5 times per week Daily chewing tobacco use Anemia- follows with hematology depression / anxiety- has been on meds- did not go well today PHQ9 2 ROBY: 5 right leg- continued drainage- wound care- follows with Dr Hicthcock- 2 rounds of antibiotics, swelling makes it works. started gabapentin 100 mg BID for leg pain. [place]- varicose veins- vascular- next week [facility]- [...] yet PSA (45-70yo): not due yet Specialists: Contract Preparer: ? Dentist: ? LIVER- [facility] wound care- Dr Hitchcock Vascular- [place] Bradder, DR Tanvir nathan Physical Exam Vitals & [...] induced, arsh (more content not included)... [facility] Comment on above: Result Comment: Elec tronically Signed By: Lisa Padilla\.br\Date and Time Signed: 07/24/23 09:18 EST Medication Consenton 023 Medication Consent [id number]#1 .00TIFF [facility] Patient Educationon 07-24-20 23 Patient Education Gastroenterology Cirrhosis Cirrhosis is long-term [...] provider before taking any new medicines, including yriv-aaz-jrjszjr medicines such as NSAIDs. ? Rest as needed. ? Eat a well-balanced diet. ? Limit your salt or water intake, if your health care provider asks you to do this. ? Do not drink alcohol. This is especially important if you routinely take acetaminophen. ? Keep all f (more content not included)... [facility] Physician Referralon 023 Physician Referral [id number]#1 .00TIFF [facility] U Microalbon 07-24-2023 Albumin DL <= 20 mg/L (U) [Mass/Vol] mg/dL Normal 0.0-19.0 [facility] Comment on above: Performed By: #### 1 [id number], [id number] ####[facility] [address] [place] [address] U Protein/Creat Ratioon 07-08 Creatinine (U) [Mass/Vol] 22.5 mg/dL Invalid Interpretation Code [facility] Comment on above: Result Comment: The reference range and other method performance specifications have not been established for this test; results should be integrated into the clinical context for interpretation. Performed By: #### 1 [id number], [id number] ####[facility] [address] [place] [address] U Prot/Creat Ratio [facility] Invalid Interpretation Code .00-200.00 [facility] Comment on above: Performed By: #### 1 [id number], [id number] ####[facility] [address] [place] [address] Albumin Elph (U) [Mass fraction] <6.0 Invalid Interpretation Code [facility] Comment on above: Result Comment: The reference range and other method performance specifications have not been established for this test; results should be integrated into the clinical context for interpretation. Performed By: #### 1 [id number], [id number] ####[facility] [address] [place] [address] Consent for Treatmenton 07-08 Consent for Treatment [id number]#1 .00TIFF [facility] Multi-Wound Charton 07-23-20 Multi-Wound Chart [id number]# 1.00TIFF [facility] Nursing Assessment - Woundon 07-23-2023 Nursing Assessment - Wound [id number]# 1.00TIFF [facility] Nursing Note - Woundon 07-23 Nursing Note - Wound [id number] 11 [id number]# 1.00TIFF [facility] Physician Orderon 07-23-2023 Physician Order [id number]# 1.00TIFF [facility] Procedure - Woundon 07-23-20 Procedure - Wound [id number] 1 [id number]# 1.00TIFF [facility] Progress Note - Woundon - Progress Note - Wound [id number]# 1.00TIFF [facility] Nursing Assessment - Woundon 07-20-2023 Nursing Assessment - Wound [id number]# 2.00TIFF [facility] Nursing Note - Woundon 07-20 Nursing Note - Wound [id number] 11 [id number]# 2.00TIFF [facility] Progress Note - Woundon 07-08 Progress Note - Wound [id number]# 3.00TIFF [facility] Physician Orderon 07-17-2023 Physician Order [id number]# 1.00TIFF [facility] Procedure - Woundon 07-17-20 Procedure - Wound [id number] 1 [id number]# 1.00TIFF [facility] Consent for Procedure/Surger yon 07-16-2023 Consent for Procedure/Surgery [id number]#1 .00TIFF [facility] Consent for Treatmenton - Consent for Treatment [id number]#1 .00TIFF [facility] Multi-Wound Charton 07-16-20 Multi-Wound Chart [id number] 1 [id number]# 1.00TIFF [facility] Prescriptions/Work Noteson 1 09-15-2022 Prescriptions/Work Notes [id number]#1 .00TIFF [facility] Nursing Note - Woundon 07-03 Nursing Note - Wound [id number] 10 [id number]# 1.00TIFF [facility] Consent for Treatmenton 06-07 Consent for Treatment [id number]#1 .00TIFF [facility] Multi-Wound Charton 06-25-20 Multi-Wound Chart [id number] 0 [id number]# 1.00TIFF [facility] Nursing Assessment - Woundon 06-25-2023 Nursing Assessment - Wound [id number]# 1.00TIFF [facility] Nursing Note - Woundon 06-25 Nursing Note - Wound [id number] 10 [id number]# 1.00TIFF [facility] Physician Orderon 06-25-2023 Physician Order [id number]# 1.00TIFF [facility] Procedure - Woundon 06-25-20 Procedure - Wound [id number] 0 [id number]# 1.00TIFF [facility] Progress Note - Woundon 06-07 Progress Note - Wound [id number]# 1.00TIFF [facility] ED Note-Physicianon 06-20-20 ED Note-Physician Basic Information Time Seen: Omid PARKER, Xander John 06/19/2023 12:21 Chief Complaint Pt was possibly [...] and Complexity of Problems Differential Diagnosis: [] [facility] Data External documents reviewed: [] My EKG [...] Link In 3 days 06/22/2023 EDT [address] [place] [address]- Business (1) Additional Instructions: Follow-up with your primary care provider in 3 to 5 days. If symptoms worsen, do not improve, or new symptoms arise please report back to emergency department for further evaluation. Patient Education Insect Bite, Adult, Cjok-ww-Texv Attestation Patient seen and evaluated by the physician pet care assistant. Attending physician was present in the emergency department and supervised care. This visit was performed by both the physician and an APC. I performed all aspects of the MDM as documented. This report was transcribed using voice recognition software. Every effort was made to ensure accuracy, however, inadvertently computerized cabin equipment supervisor mistakes may be present. Appropriate healthcare PPE was used in evaluating this patient. The patient was placed in a mask. The healthcare provider was wearing mask, gloves, and utilizing proper hand hygiene. All equipment was prop (more content not included)... [facility] Comment on above: Result Comment: Elec tronically Signed By: Xander Anne PA-C\.br\Date and Time Signed: 06/19/23 13:22 EDT\.br\Electronically Co-Signed By: Teddy Luna DO\.br\Date and Time Co-Signed: 06/20/23 07:44 EDT Consent for Treatmenton 06-07 Consent for Treatment [id number]#1 .00TIFF [facility] Discharge Instructionson Discharge Instructions [id number]# 1.00TIFF [facility] ED Clinical Summaryon 2022 ED Clinical Summary [place] [id number] ED Clinical Summary Person Information Name: WILL ANDERSON Felicity/[facility] Age: 37 Years : 1985 Sex: Male Language: Japanese PCP: NONE, XXXX Marital Status: Single Visit [...] 06/19/2023 13:28:07 06/19/2023 13:28:07 06/19/2023 13:28:07 ADDRESS: [address] [place] [id number] PHYS DOC NOTES: MEDICAL INFORMATION: Prescriptions Given: Medications to Continue with No Changes Other Medications clindamycin (clindamycin 150 mg Cap) 2 Capsules By Mouth 4 times a day. Refills: 0. ondansetron (Zofran ODT 4 mg Tab-Dis) 1 Tablets By Mouth every 8 hours as needed Nausea/Vomiting. Refills: 0. PATIENT EDUCATION INFORMATION: Instructions: Insect Bite, Adult, Urao-xh-Zfiv Follow up: With: Address: Kai: [address] [place] [address] Business (1) In 3 days 06/22/2023 Comments: Follow-up with your primary care provider in 3 to 5 days. If symptoms worsen, do not improve, or new symptoms arise please report back to emergency department for further evaluation. DIAGNOSIS: Bitten or stung by nonvenomous insect and other nonvenomous arthropods, initial encounter; Insect bite of right thigh Dung [facility] ED Patient Education Noteon 06-19-2023 ED Patient [...] an anaphylactic reaction may include: ? Feeling nursing educator the face (flushed). Your face may turn [...] day. General instructions ? Apply or take hnyr-xxo-mjbbsox and prescription medicines only as told by [...] ? Oil of lemon eucalyptus (OLE). ? AH4179. ? Consider spraying your clothing with a [...] anaphylactic reaction. Signs may include: ? Feeling nursing educator the face. ? Itchy, red, swollen areas [...] your local (more content not included)... [facility] ED Patient Summaryon 023 ED Patient Summary [place] [id number] Patient Discharge Instructions Person Information Name: WILL ANDERSON Age: 37 Years Arrival Date: 06/19/2023 12:15:49 Discharge Diagnosis: Bitten or stung by nonvenomous insect and other nonvenomous arthropods, initial encounter; Insect bite of right thigh Primary Care Physician: NONE, XXXX Provider Information Primary Provider: Teddy Luna DO Advanced Machine Turner:None The exam and treatment you received in the Emergency Department were for an urgent problem and are not intended as complete care. It is important that you follow up with a doctor, nurse practitioner, or physician?s pet care assistant for ongoing care. If your symptoms [...] Address: When: [address] [place] [address] Player X (1) In 3 days 06/22/2023 Comments: Follow-up [...] provider. Patient Education Materials: Insect Bite, Adult, Xsux-wu-Wrzu A MESSAGE TO ALL PATIENTS REGARDING OPIOIDS PRESCRIPTION OPIOIDS: WHAT YOU NEED TO KNOW Prescription opioids can be used to help relieve dqgdrmdq-sy-kqxmet pain and are often prescribed following a [...] guidance from the Food and Drug Administration (www.fda.gov/Drugs/Re sourcesForYou (more content not included)... [facility] Consent for Procedure/Surger yon 06-18-2023 Consent for Procedure/Surgery [id number] #1.00TIFF [facility] Consent for Treatmenton 06-07 Consent for Treatment [id number]#1 .00TIFF [facility] Multi-Wound Charton 06-18-20 23 Multi-Wound Chart [id number] 0 [id number]# 1.00TIFF [facility] Nursing Assessment - Woundon 06-18-2023 Nursing Assessment - Wound [id number]# 1.00TIFF [facility] Nursing Note - Woundon 06-18 Nursing Note - Wound [id number] 10 [id number]# 1.00TIFF [facility] Physician Orderon 06-18-2023 Physician Order [id number]# 1.00TIFF [facility] Procedure - Woundon 06-18-20 Procedure - Wound [id number] 0 [id number]# 1.00TIFF [facility] Progress Note - Woundon 06-07 Progress Note - Wound [id number]# 1.00TIFF [facility] Physician Orderon 06-17-2023 Physician Order [id number]# 2.00TIFF [facility] Consent for Treatmenton Consent for Treatment [id number]#1 .00TIFF [facility] Multi-Wound Charton 06-11-20 Multi-Wound Chart [id number] 0 [id number]# 1.00TIFF [facility] Nursing Assessment - Woundon 06-11-2023 Nursing Assessment - Wound [id number]# 1.00TIFF [facility] Nursing Note - Woundon 06-11 Nursing Note - Wound [id number] 10 [id number]# 2.00TIFF [facility] Consent for Procedure/Surger yon 06-04-2023 Consent for Procedure/Surgery [id number]# 1.00CD:127 [facility] Consent for Treatmenton 05-09 Consent for Treatment [id number]#1 .00CD:127 [facility] Multi-Wound Charton 06-04-20 Multi-Wound Chart [id number] 9 [id number]# 1.00CD:127 [facility] Nursing Assessment - Woundon 06-04-2023 Nursing Assessment - Wound [id number]# 1.00CD:127 [facility] Nursing Note - Woundon 06-04 Nursing Note - Wound [id number] 09 [id number]# 1.00CD:127 [facility] Physician Orderon 06-04-2023 Physician Order [id number]# 1.00CD:127 [facility] Procedure - Woundon 06-04-20 Procedure - Wound [id number] 9 [id number]# 1.00CD:127 [facility] Progress Note - Woundon 05-09 Progress Note - Wound [id number]# 1.00CD:127 [facility] Insurance Correspondenceon 0 06-03-2023 Insurance Correspondence [id number]#1 .00CD:127 [facility] Consent for Treatmenton 05-08 Consent for Treatment [id number]#1 .00CD:127 [facility] Correspondence - Woundon Correspondence - Wound [id number]#1 .00CD:127 [facility] Insurance Correspondenceon 0 05-25-2023 Insurance Correspondence [id number]#1 .00CD:127 [facility] Insurance Correspondence [id number]# 1.00CD:127 [facility] Multi-Wound Charton 05-25-20 Multi-Wound Chart [id number]# 1.00CD:127 [facility] Nursing Assessment - Woundon 05-25-2023 Nursing Assessment - Wound [id number]# 1.00CD:127 [facility] Nursing Note - Woundon 05-25 Nursing Note - Wound [id number] 09 [id number]# 1.00CD:127 [facility] Physician Orderon 05-25-2023 Physician Order [id number]# 1.00CD:127 [facility] Procedure - Woundon 05-25-20 Procedure - Wound [id number]# 1.00CD:127 [facility] Progress Note - Woundon 05-08 Progress Note - Wound [id number]# 1.00CD:127 [facility] Nursing Note - Woundon 05-21 Nursing Note - Wound [id number]# 1.00CD:127 [facility] Insurance Correspondenceon 0 05-18-2023 Insurance Correspondence [id number]#1 .00CD:127 [facility] Insurance Correspondenceon 0 05-15-2023 Insurance Correspondence [id number]#1. 00CD:127 [facility] Insurance Correspondence [id number]#1 .00CD:127 [facility] Consent for Procedure/Surger yon 05-14-2023 Consent for Procedure/Surgery [id number]# 1.00CD:127 [facility] Consent for Procedure/Surgery [id number]# 1.00CD:127 [facility] Consent for Treatmenton Consent for Treatment [id number]#1 .00CD:127 [facility] Correspondence - Woundon Correspondence - Wound [id number]# 1.00CD:127 [facility] Nursing Assessment - Woundon 05-14-2023 Nursing Assessment - Wound [id number]# 1.00CD:127 [facility] Nursing Note - Woundon 05-14 Nursing Note - Wound [id number] 09 [id number]# 1.00CD:127 [facility] Physician Orderon 05-14-2023 Physician Order [id number]# 1.00CD:127 [facility] Procedure - Woundon 05-14-20 Procedure - Wound [id number]# 1.00CD:127 [facility] Progress Note - Woundon Progress Note - Wound [id number]# 1.00CD:127 [facility] Insurance Correspondenceon 0 05-13-2023 Insurance Correspondence [id number]#1.0 0CD:127 [facility] Nursing Note - Woundon 05-13 Nursing Note - Wound [id number]# 2.00CD:127 [facility] Insurance Correspondenceon 05-12-2023 Insurance Correspondence [id number]# 1.00CD:127 [facility] Physician Orderon 05-12-2023 Physician Order [id number]# 1.00CD:127 [facility] Procedure - Woundon 05-12-20 Procedure - Wound [id number]# 1.00CD:127 [facility] Consent for Treatmenton 09- Consent for Treatment [id number]# 1.00CD:127 [facility] Multi-Wound Charton 05-08-20 Multi-Wound Chart [id number]# 1.00CD:127 [facility] Nursing Assessment - Woundon 05-08-2023 Nursing Assessment - Wound [id number]# 1.00CD:127 [facility] Nursing Note - Woundon 05-08 Nursing Note - Wound [id number] 09 [id number]# 1.00CD:127 [facility] Consent for Treatmenton 04-09 Consent for Treatment [id number]#1 .00CD:127 [facility] Multi-Wound Charton 05-07-20 Multi-Wound Chart [id number]# 1.00CD:127 [facility] Nursing Assessment - Woundon 05-07-2023 Nursing Assessment - Wound [id number]# 1.00CD:127 [facility] Physician Orderon 05-07-2023 Physician Order [id number]# 1.00CD:127 [facility] Procedure - Woundon 05-07-20 Procedure - Wound [id number]# 1.00CD:127 [facility] Progress Note - Woundon 04-09 Progress Note - Wound [id number]# 1.00CD:127 [facility] Consent for Treatmenton 04-08 Consent for Treatment [id number]# 1.00CD:127 [facility] Physician Orderon 05-01-2023 Physician Order [id number]# 1.00CD:127 [facility] Procedure - Woundon 05-01-20 Procedure - Wound [id number]# 1.00CD:127 [facility] Multi-Wound Charton 04-30-20 Multi-Wound Chart [id number]# 1.00CD:127 [facility] Nursing Assessment - Woundon 04-30-2023 Nursing Assessment - Wound [id number]# 1.00CD:127 [facility] Nursing Note - Woundon 04-30 Nursing Note - Wound [id number] 08 [id number]# 1.00CD:127 [facility] Outside Recordson 04-28-2023 Outside Records [id number]# 1.00CD:127 [facility] Consent for Treatmenton 04-07 Consent for Treatment [id number]#1 .00CD:127 [facility] Nursing Note - Woundon 04-23 Nursing Note - Wound [id number]# 1.00CD:127 [facility] Physician Orderon 04-23-2023 Physician Order [id number]# 1.00CD:127 [facility] Procedure - Woundon 04-23-20 Procedure - Wound [id number]# 1.00CD:127 Normal [facility] Progress Note - Woundon 04-07 Progress Note - Wound [id number]# 1.00CD:127 Normal [facility] Addendum Noteon 04-22-2023 [employer] Authentication Interface Message Text Encounter addended by: Tanvir Black MD on: 04/22/2023 9:05 AM Actions taken: Clinical Note Signed Normal [facility] BASIC METABOLIC PANELon 04-07 Anion gap [Moles/Vol] 12 mmol/L Normal 10-20 [facility] Comment on above: Performed By: #### P T #### [facility] [address] [place] [address], Calcium [Mass/Vol] 8.6 mg/dL Normal 8.4-10.4 [facility] Comment on above: Performed By: #### P T #### S PATHOLOGY LABORATORY [address] [place] [address], Chloride [Moles/Vol] 104 mmol/L Normal 97-111 [facility] Comment on above: Performed By: #### P T #### S [facility] [address] [place] [address], CO2 [Moles/Vol] 26 mmol/L Normal 21-30 [facility] Comment on above: Performed By: #### P T #### S [facility] [address] [place] [address], Creatinine [Mass/Vol] 0.52 mg/dL Low 0.80-1.30 [facility] Comment on above: Performed By: #### P T #### S [facility] [address] [place] [address], ESTIMATED GFR (CKD-EPI) 132 mL/min/1.73sqm Normal >=60 [facility] Comment on above: Result Comment: 2020 [...] Inclusion of Race in Diagnosing Kidney Disease. [place] Journal of Kidney Diseases 202;79(2):268-88.e1. 2. N Engl J Med 1 Vol. 385 Issue 19 Pages 6313-7026 Performed By: #### P T #### S [facility] [address] [place] [address], Glucose [Mass/Vol] 80 mg/dL Normal 68-110 [facility] Comment on above: Performed By: #### P T #### S [facility] [address] [place] [address], Potassium [Moles/Vol] 4.0 mmol/L Normal 3.3-5.3 [facility] Comment on above: Performed By: #### P T #### S [facility] [address] [place] [address], Sodium [Moles/Vol] 138 mmol/L Normal 135-148 [facility] Comment on above: Performed By: #### P T #### S [facility] [address] [place] [address], Urea nitrogen [Mass/Vol] 7 mg/dL Low 8-22 [facility] Comment on above: Performed By: #### P T #### S [facility] [address] [place] [address], Basic metabolic 2000 panelon 04-21-2023 Anion gap [Moles/Vol] 12 mmol/L 10 - 20 [facility] Calcium [Mass/Vol] 8.6 mg/dL 8.4 - 10.4 mg/dL [facility] Chloride [Moles/Vol] 104 mmol/L 97 - 111 mmol/L [facility] CO2 [Moles/Vol] 26 mmol/L 21 - 30 mmol/L [facility] Creatinine [Mass/Vol] 0.52 mg/dL Low 0.80 - 1.30 mg/dL [facility] GFR/1.73 sq M.predicted MDRD (S/P/Bld) [Vol rate/Area] 132 mL/min/{1.73_m2} - PINF [facility] Comment on above: 2020 CKD EPI Equatio n using Creatinine without Race Comment: Estimated glomerular filtration rate (eGFR) is calculated without a race coefficient. Values should be interpreted in the context of the patient's full clinical presentation. Reference: 1. Fran C, Akhli M, [place] DC, et al.. A Unifying Approach for GFR Estimation: Recommendations of the NKF-ASN Task Force on Reassessing the Inclusion of Race in Diagnosing Kidney Disease. [place] Journal of Kidney Diseases 202;79(2):268-88.e1. 2. N Engl J Med 2020 Vol. 385 Issue 19 Pages 0518-5058 Glucose [Mass/Vol] 80 mg/dL 68 - 110 mg/dL [facility] Potassium [Moles/Vol] 4.0 mmol/L 3.3 - 5.3 mmol/L [facility] Sodium [Moles/Vol] 138 mmol/L 135 - 148 mmol/L [facility] Urea nitrogen [Mass/Vol] 7 mg/dL Low 8 - 22 mg/dL [facility] CBC WITH DIFFERENTIALon 04-07 Basophils (Bld) [#/Vol] 0.04 10*3/uL Normal 0.00-0.20 [facility] Comment on above: Performed By: #### BEBETO MICHAEL AREDENISE #### [facility] [address] [place] [address], Basophils/100 WBC (Bld) 0.8 % Normal <=1.9 [facility] Comment on above: Performed By: #### BEBETO MICHAEL ARETIC #### [facility] [address], [place], Eosinophils (Bld) [#/Vol] 0.12 10*3/uL Normal 0.00-0.70 [facility] Comment on above: Performed By: #### BEBETO MICHAEL ARETIC #### [facility] [address], [place], Eosinophils/100 WBC (Bld) 2.5 % Normal 0.1-4.0 The [facility] Comment on above: Performed By: #### BEBETO MICHAEL, ARETIC #### S PATHOLOG[facility] LAB[facility]ATORY [address] [place] [address], Erythrocyte distribution width (RBC) [Ratio] 19.6 % High 11.5-14.5 [facility] Comment on above: Performed By: #### BEBETO MICHAEL, ARETIC #### S [facility] [address] [place] [address], Hematocrit (Bld) [Volume fraction] 36.3 % Low 41.0-53.0 [facility] Comment on above: Performed By: #### BEBETO MICHAEL, ARETIC #### S [facility] [address] [place] [address], Hemoglobin (Bld) [Mass/Vol] 12.2 g/dL Low 13.9-16.3 [facility] Comment on above: Performed By: #### BEBETO MICHAEL, ARETIC #### [facility] [address] [place] [address], Lymphocytes (Bld) [#/Vol] 1.13 10*3/uL Normal 1.00-4.80 [facility] Comment on above: Performed By: #### BEBETO MICHAEL, ARETIC #### S [facility] [address] [place] [address], Lymphocytes/100 WBC (Bld) 23.3 % Low 24.0-44.0 [facility] Comment on above: Performed By: #### BEBETO MICHAEL, ARETIC #### S [facility] [address] [place] [address], MCH (RBC) [Entitic mass] 34.3 pg High 26.0-34.0 [facility] Comment on above: Performed By: #### BEBETO MICHAEL, ARETIC #### S [facility] [address] [place] [address], MCHC (RBC) [Mass/Vol] 33.7 g/dL Normal 32.0-35.9 [facility] Comment on above: Performed By: #### BEBETO MICHAEL, ARETIC #### S [facility] [address] [place] [address], MCV (RBC) [Entitic vol] 102 fL High 80-100 [facility] Comment on above: Performed By: #### BEBETO MICHAEL, ARETIC #### [facility] [address] [place] [address], MONOCYTE DISTRIBUTION WIDTH Normal [facility] Comment on above: Performed By: #### BEBETO MICHAEL, ARETIC #### [facility] [address], [place], Monocytes (Bld) [#/Vol] 0.61 10*3/uL Normal 0.20-1.00 [facility] Comment on above: Performed By: #### BEBETO MICHAEL, ARETIC #### [facility] [address], [place], Monocytes/100 WBC (Bld) 12.5 % High 2.0-11.0 [facility] Comment on above: Performed By: #### BEBETO MICHAEL, ARETIC #### [facility] [address], [place], Neutrophils (Bld) [#/Vol] 2.95 10*3/uL Normal 1.50-8.00 [facility] Comment on above: Performed By: #### BEBETO MICHAEL, ARETIC #### [facility] [address], [place], Neutrophils/100 WBC (Bld) 60.8 % Normal 31.0-76.0 [facility] Comment on above: Performed By: #### BEBETO MICHAEL, ARETIC #### [facility] [address], [place], Platelet mean volume (Bld) [Entitic vol] 8.6 fL Normal 7.5-11.2 [facility] Comment on above: Performed By: #### BEBETO MICHAEL, ARETIC #### [facility] [address] [place] [address], Platelets (Bld) [#/Vol] 85 10*3/uL Low 150-400 [facility] Comment on above: Performed By: #### BEBETO MICHAEL, ARETIC #### [facility] [address], [place], RBC (Bld) [#/Vol] 3.57 10*6/uL Low 4.50-5.90 [facility] Comment on above: Performed By: #### BEBETO MICHAEL, ARETIC #### [facility] [address], [place], WBC (Bld) [#/Vol] 4.9 10*3/uL Normal 4.5-11.5 [facility] Comment on above: Performed By: #### BEBETO MICHAEL, ARETIC #### [facility] [address], [place], CBC WITH DIFFERENTIALOrdered By: Yany Carrera on [...] 12.2 g/dL Low 13.9 - 16.3 g/dL [facility] Interpretation and review of laboratory results Abnormal [facility] Lymphocytes (Bld) [#/Vol] 1.13 10*3/uL 1.00 - 4.80 K/uL [facility] Lymphocytes/100 WBC (Bld) 23.3 % Low 24.0 - 44.0 % [facility] MCH (RBC) [Entitic mass] 34.3 pg High 26.0 - 34.0 pg [facility] MCHC (RBC) [Mass/Vol] 33.7 g/dL 32.0 - 35.9 g/dL [facility] MCV (RBC) [Entitic vol] 102 fL [...] 85 10*3/uL Low 150 - 400 K/[facility] RBC (Bld) [#/Vol] 3.57 10*6/uL Low [facility] WBC (Bld) [#/Vol] 4.9 10*3/uL 4.5 - 11.5 K/uL [facility] HAPTOGLOBINon 04-21-2023 HAPTOGLOBIN < 30 Low 36-220 [facility] Comment on above: Performed By: #### P T #### S [facility] LAB[facility] [address] [place] [address], Haptoglobin [Mass/Vol] mg/dL Low 36 - 220 mg/dL [facility] Interpretation and review of laboratory results Abnormal [employer] HEPATIC FUNCTION PANELon Albumin [Mass/Vol] 3.2 g/dL Low 3.4-5.1 [facility] Comment on above: Performed By: #### P T #### [facility] [address] [place] [address], ALK 284 IU/L High 40-200 [facility] Comment on above: Performed By: #### P T #### S [facility] [address] [place] [address], ALT [Catalytic activity/Vol] 38 U/L Normal 7-40 [facility] Comment on above: Performed By: #### P T #### S [facility] [address] [place] [address], AST [Catalytic activity/Vol] 70 U/L High 7-40 [facility] Comment on above: Performed By: #### P T #### S [facility] [address] [place] [address], Bilirubin [Mass/Vol] 7.5 mg/dL High 0.1-1.5 [facility] Comment on above: Performed By: #### P T #### [facility] [address] [place] [address], Bilirubin.direct [Mass/Vol] 1.89 mg/dL High 0.10-0.30 [facility] Comment on above: Performed By: #### P T #### [facility] [address] [place] [address], Protein [Mass/Vol] 7.6 g/dL Normal 6.2-8.3 [facility] Comment on above: Performed By: #### P T #### [facility] [address] [place] [address], Albumin [Mass/Vol] 3.2 g/dL Low 3.4 - 5.1 g/dL [facility] ALP [Catalytic activity/Vol] 284 U/L High [facility] ALT [Catalytic activity/Vol] 38 U/L [facility] AST [Catalytic activity/Vol] 70 U/L High [facility] Bilirubin [Mass/Vol] 7.5 mg/dL High 0.1 - 1.5 mg/dL [facility] Bilirubin.direct [Mass/Vol] 1.89 mg/dL High 0.10 - 0.30 mg/dL [facility] Protein [Mass/Vol] 7.6 g/dL 6.2 - 8.3 g/dL [facility] LDH[facility]-21-2023 LD 257 IU/L High 50-220 [facility] Comment on above: Performed By: #### P T #### S [facility] [address] [place] [address], LDH [Catalytic activity/Vol] 257 U/L High [facility] MANUAL DIFF AND MORPHon 04-07 ANISOCYTOSIS Slight Normal [facility] Comment on above: Performed By: #### BEBETO MICHAEL, ARETIC #### [facility] [address] [place] [address], CELLS COUNTED TOTAL # IN BLOOD Normal [facility] Comment on above: Performed By: #### BEBETO MICHAEL, ARETIC #### [facility] [address] [place] [address], FRAGMENTED RBC Few Normal [facility] Comment on above: Performed By: #### BEBETO MICHAEL, ARETIC #### [facility] [address] [place] [address], OVALOCYTES Few Normal [facility] Comment on above: Performed By: #### BEBETO MICHAEL, ARETIC #### S [facility] [address] [place] [address], TARGET CELLS Few Normal The [facility] Comment on above: Performed By: #### BEBETO MICHAEL, ARETIC #### [facility] [address] [place] [address], TEARDROP CELLS Few Normal [facility] Comment on above: Performed By: #### BEBETO MICHAEL, ARETIC #### S [facility] [address] [place] [address], Anisocytosis Ql (Bld) Slight [facility] Cells Counted Total (Bld) [#] [facility] Dacrocytes LM Ql (Bld) Few [facility] Ovalocytes LM Ql (Bld) Few [facility] Schistocytes LM Ql (Bld) Few [facility] Target cells LM Ql (Bld) Few [facility] No Panel InformationOrdered By: Yany Carrera on 04-21-2023 [facility] No Panel Informationon 04-21 Interpretation and review of laboratory results Abnormal [employer] Progress Noteson 04-21-2023 [employer] Authentication Interface Message Text Patient was identified by name and date of . Monie Hernandez RN Patient at risk for falls:No Falls Risk protocol implemented: No Patient arrived to clinic for blood work. Labs obtained via venipuncture in the R AC with a #23 gauge butterfly needle. drsg applied and patient tolerated procedure well. Monie Hernandez RN Normal [facility] [employer] Authentication Interface Message Text Hematology AND Oncology [...] and headaches. Endo/Heme/Allergies: Does not bruise/bleed easily. Psychiatric/Behaviora l: Negative for depression, substance abuse and suicidal ideas. The patient is not nervous/anxious and does not have insomnia. 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 Followed with Rheum at [facility] Open fracture of other and unspecified [...] 120 min Stress: Stress Concern Present (02/27/2023) [place] [place] [employer] - Occupational Stress Questionnaire Feeling of Stress : Very much Social Connections: Socially Isolated (02/27/2023) Social Connection and Isolation Panel [NHANES] Frequency of Communication with Friends and Family: More than three times a week Frequency of Social Gatherings with Friends and Family: Patient refused Attends [employer] Services: Never Active Member of Clubs or Organizations: No Attends Club or Organization Meetings: Never Marital Status: Never Intimate Partner Violence: Not At Risk (02/27/2023) Humiliation, Afraid, Rape, and Kick questionnaire Fear of Current or Ex-Partner: No Emotionally Abused: No Physically Abused: No Sexually Abused: No CURRENT MEDICATIONS: Current Outpatient Medications Medication Sig Dispense Refill sulfamethoxazole-trim ethoprim 800-160 MG (Bactrim DS) 800-160 MG per [...] lactulos (more content not included)... Normal [facility] [employer] Authentication Interface Message Text Patient was identified by name and date of . Gustabo Mulligan Toya Body Mass Index is 27.08. Body Surface Area is 1.90 square meters according to the formula of Eli and Eli. Patient at risk for falls:No Falls Risk protocol implemented: No Blood pressure 136/67, pulse 79, temperature 97.7 ???F (36.5 ???C), resp. rate 20, height 5' 7 (1.702 m), weight 172 lb 14.4 oz (78.4 kg), SpO2 100 %. Gustabo Isaak Pittman Normal [facility] [employer] Leader Authentication Interface Message Text Patient was identified by name and date of . Gustabo Mulligan HoffmannOmarMel Body Mass Index is 27.08. Body Surface Area is 1.90 square meters according to the formula of Eli and Eli. Patient at risk for falls:No Falls Risk protocol implemented: No Blood pressure 136/67, pulse 79, temperature 97.7 ???F (36.5 ???C), resp. rate 20, height 5' 7 (1.702 m), weight 172 lb 14.4 oz (78.4 kg), SpO2 100 %. Gustabo Pittman Normal [facility] RETICULOCYTE COUNTon 023 IMMATURE RETICULOCYTE FRACTION 0.46 Normal 0.30-0.50 [facility] Comment on above: Performed By: #### C BEBETO AQUINO ARETIC #### S [facility]OLOG[facility] LABORATORY [address] [place] [address], [phone] RETIC # 0.09 M/uL High 0.03-0.08 [facility] Comment on above: Performed By: #### C BEBETO AQUINO ARETIC #### [facility] [address] [place], [address] RETIC % 2.6 % High 0.5-1.5 [facility] Comment on above: Performed By: #### C BEBETO AQUINO ARETIC #### [facility] [address] [place], [address] Immature reticulocytes/Total reticulocytes (Bld) 0.46 % 0.30 - 0.50 [facility] Interpretation and review of laboratory results Abnormal [facility] Reticulocytes (Bld) [#/Vol] 0.09 10*3/uL High [facility] Reticulocytes/100 RBC (Bld) 2.6 % High 0.5 [...] MD Transcribed by: 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, [facility] Consent for Treatmenton 04-07 Consent for Treatment [id number]#1 .00CD:127 [facility] Consent for Procedure/Surger yon 04-13-2023 Consent for Procedure/Surgery [id number]#1 .00CD:127 [facility] Consent for Treatmenton - Consent for Treatment [id number]#1 .00CD:127 [facility] Insurance Correspondenceon 0 04-13-2023 Insurance Correspondence [id number]#1 .00CD:127 [facility] Multi-Wound Charton 04-13-20 Multi-Wound Chart [id number]# 1.00CD:127 [facility] Nursing Assessment - Woundon 04-13-2023 Nursing Assessment - Wound [id number]# 1.00CD:127 [facility] Nursing Note - Woundon 04-13 Nursing Note - Wound [id number]# 1.00CD:127 [facility] Physician Orderon 04-13-2023 Physician Order [id number]#1 .00CD:127 [facility] Physician Order [id number]# 1.00CD:127 [facility] Procedure - Woundon 04-13-20 Procedure - Wound [id number]# 1.00CD:127 [facility] Progress Note - Woundon 08-0 Progress Note - Wound [id number]# 1.00CD:127 [facility] Consent for Treatmenton 03-08 Consent for Treatment [id number]#1 .00CD:127 [facility] Multi-Wound Charton 03-30-20 Multi-Wound Chart [id number]# 1.00CD:127 [facility] Nursing Assessment - Woundon 03-30-2023 Nursing Assessment - Wound [id number]# 1.00CD:127 [facility] Nursing Note - Woundon 03-30 Nursing Note - Wound [id number]# 1.00CD:127 [facility] Physician Orderon 03-30-2023 Physician Order [id number]# 1.00CD:127 [facility] Procedure - Woundon 03-30-20 Procedure - Wound [id number]# 1.00CD:127 [facility] Progress Note - Woundon 03-08 Progress Note - Wound [id number]# 1.00CD:127 [facility] Discharge Instructionson Discharge Instructions [id number]#1. 00CD:127 [facility] Auto Diffon 03-22-2023 Basophils/100 WBC (Bld) 0.4 % Normal 0.0-2.0 [facility] Comment on above: Order Comment: Order Added by Discern Expert. Performed By: #### 2 075937, 2028067, 60475193, 7487004, 0658503, 5746670, 88303129 #### [facility] [address] [place] [address] Basophils/Leukocytes Auto (Bld) [Pure # fraction] 0.0 E9/L Normal 0.0-0.2 [facility] Comment on above: Order Comment: Order Added by Discern Expert. Performed By: #### 2 949242, 9522522, 25663389, 8176251, 5262320, 6108746, 88374835 #### [facility] [address] [place] [address] 07926 Eosinophils/100 WBC (Bld) 1.3 % Normal 0.0-8.0 [facility] Comment on above: Order Comment: Order Added by Discern Expert. Performed By: #### 2 008659, 4094262, 10736211, 7943383, 4723823, 0966355, 98370122 #### [facility] [address] [place] [address]19 Eosinophils/Leukocyt es Auto (Bld) [Pure # fraction] 0.1 E9/L Normal 0.0-0.5 [facility] Comment on above: Order Comment: Order Added by Discern Expert. Performed By: #### 2 947268, 0913989, 04897140, 8639704, 5228268, 6361697, 77933550 #### [facility] [address] [place] [address] 74140 Lymphocytes/100 WBC (Bld) 14.6 % Normal 14.0-50.0 [facility] Comment on above: Order Comment: Order Added by Discern Expert. Performed By: #### 2 138954, 5819526, 79966894, 8666443, 7593715, 7531523, 25768906 #### [facility] [address] [place] [address] 48134 Lymphocytes/Leukocyt es Auto (Bld) [Pure # fraction] 1.5 E9/L Normal 1.0-4.0 [facility] Comment on above: Order Comment: Order Added by Discern Expert. Performed By: #### 2 982886, 2934019, 67429264, 0822256, 5476333, 3173420, 60724507 #### [facility] [address] [place] [address] Monocytes/100 WBC (Bld) 7.9 % Normal 4.0-14.0 [facility] Comment on above: Order Comment: Order Added by Discern Expert. Performed By: #### 2 793582, 0123443, 68713205, 9531283, 8352099, 3827356, 06654940 #### [facility] [address] [place] [address] 70474 Monocytes/Leukocytes Auto (Bld) [Pure # fraction] 0.8 E9/L Normal 0.2-1.0 [facility] Comment on above: Order Comment: Order Added by Discern Expert. Performed By: #### 2 296076, 4758966, 91041547, 5683204, 5055036, 7597860, 04431006 #### [facility] [address] [place] [address] 95284 Neutrophils/100 WBC (Bld) 75.8 % High 36.0-75.0 [facility] Comment on above: Order Comment: Order Added by Angelito Expert. Performed By: #### 2 646108, 5181040, 18670247, 3684248, 8248992, 8314630, 61072438 #### [facility] [address] [place] [address] Neutrophils/Leukocyt es Auto (Bld) [Pure # fraction] 7.7 E9/L High 2.0-7.5 [facility] Comment on above: Order Comment: Order Added by Angelito Expert. Performed By: #### 2 187103, 3952222, 56549392, 3726272, 8161602, 2488320, 93084687 #### [facility] [address] [place] [address] 97890 CBC w/ Auto Diffon 3 Erythrocyte distribution width (RBC) [Ratio] 15.4 % High 10.9-14.2 [facility] Comment on above: Performed By: #### 2 032959, 7536848, 50722875, 8257802, 4466294, 3465944, 24043863 #### [facility] [address] [place] [address] Hematocrit (Bld) [Volume fraction] 30.1 % Low 37.7-49.0 [facility] Comment on above: Performed By: #### 2 546896, 9298850, 40299564, 9115933, 1776004, 0775863, 37492581 #### [facility] [address] [place] [address] Hemoglobin (Bld) [Mass/Vol] 10.3 g/dL Low 13.5-17.5 [facility] Comment on above: Performed By: #### 2 602615, 3507791, 15015040, 3707057, 5125425, 4748051, 05602815 #### [facility] [address] [place] [address] MCH (RBC) [Entitic mass] 34.1 pg High 27.0-34.0 [facility] Comment on above: Performed By: #### 2 924230, 0348249, 10796273, 7462045, 7735304, 6266643, 92396380 #### [facility] [address] [place] [address] MCHC (RBC) [Mass/Vol] 34.2 g/dL Normal 31.4-36.0 [facility] Comment on above: Performed By: #### 2 853698, 3535736, 40902247, 6485034, 2842743, 4724960, 65864670 #### [facility] [address] [place] [address] MCV (RBC) [Entitic vol] 99.4 fL Normal 80.0-100.0 [facility] Comment on above: Performed By: #### 2 629328, 3439046, 26072196, 7096820, 2691653, 6290033, 41404245 #### [facility] [address] [place] [address] 23802 Platelet mean volume (Bld) [Entitic vol] 8.6 fL Normal 6.4-10.8 [facility] Comment on above: Performed By: #### 2 884148, 2445944, 97276194, 7271470, 5799202, 4143157, 01907378 #### [facility] [address] [place] [address] 47729 Platelets (Bld) [#/Vol] 87.0 E9/L Low 150.0-500.0 [facility] Comment on above: Performed By: #### 2 234712, 2707695, 68248265, 6958106, 5460914, 7765182, 91214572 #### [facility] [address] [place] [address] RBC (Bld) [#/Vol] 3.0 E12/L Low 4.3-5.9 [facility] Comment on above: Performed By: #### 2 036891, 7681554, 68249875, 3794561, 7077671, 4705708, 80449165 #### [facility] [address] [place] [address] 43398 WBC corrected for nucl RBC Auto (Bld) [#/Vol] 10.1 E9/L Normal 4.0-11.0 [facility] Comment on above: Performed By: #### 2 379035, 7097838, 45219412, 1989573, 7650043, 0578813, 04754835 #### [facility] [address] [place] [address] CHEMISTRYOrdered By: SYSTEM SYSTEM on 03-22-2023 Albumin [...] 8 mmol/L Normal 6 - 16 mEq/L [facility] Remisol AST [Catalytic activity/Vol] 80 [iU]/d High 5 - 43 Int._Unit/L [facility] Remisol Bilirubin [Mass/Vol] 8.1 mg/dL High 0.0 - 1.1 mg/dL [facility] Remisol Calcium [Mass/Vol] 8.2 mg/dL Low 8.9 - 11.1 mg/dL [facility] Chloride [Moles/Vol] 103 mmol/L Normal 101 - 111 mmol/ L [facility] CO2 [Moles/Vol] 25 mmol/L Normal 21 - 31 mmol/L [facility] Creatinine [Mass/Vol] 0.6 mg/dL Normal 0.5 - 1.3 mg/dL [facility] GFR/1.73 sq M.predicted among non-blacks MDRD (S/P/Bld) [Vol rate/Area] 127 mL/min/1.73 m2 Normal >=59mL/min/1.73 m2 [facility] Chem S Globulin (S) [Mass/Vol] 4.7 g/dL High 1.4 - 4.0 gm/dL [facility] Glucose [Mass/Vol] 146 mg/dL Normal 55 - 199 mg/dL [facility] Lactate [Mass/Vol] 2.0 mmol/L Normal 0.5 - 2.2 mmol/L [facility] Potassium [Moles/Vol] 3.0 mmol/L Low 3.5 - 5.3 mmol/L [facility] Remisol Protein [Mass/Vol] 7.2 g/dL Normal 6.0 - 7.8 gm/dL F C Remisol Sodium [Moles/Vol] 133 mmol/L Low 135 - 145 mmol/L [facility] Remisol Troponin I.cardiac [Mass/Vol] 10.30 pg/mL Low 15.90 - 38.40 pg/mL [facility] Urea nitrogen [Mass/Vol] 7 mg/dL Normal 5 - 21 mg/dL [facility] Remisol Urea nitrogen/Creatinine [Mass ratio] 12 mg/mg Normal 10 - 20 [facility] Remisol CMPon 03-22-2023 Albumin [Mass/Vol] 2.5 g/dL Low 3.3-5.0 [facility] Comment on above: Performed By: #### 2 470056, 4581912, 36895512, 7986207, 7545903, 9759583, 37945471 ####[facility] [address] [place] [address] Albumin/Globulin (S) [Mass conc ratio] 0.5 Low 1.1-2.2 [facility] Comment on above: Performed By: #### 2 147945, 6514141, 22480098, 5163625, 7677147, 4704284, 55156601 ####[facility] [address] [place] [address] ALP [Catalytic activity/Vol] 158 Int._Unit/L High 21-98 [facility] Comment on above: Performed By: #### 2 691261, 6854178, 57172635, 2668008, 3267576, 4788208, 54642958 ####[facility] [address] [place] [address] ALT No additional P-5'-P [Catalytic activity/Vol] 50 Int._Unit/L High 6-46 [facility] Comment on above: Performed By: #### 2 666388, 9632920, 82588766, 3841186, 7161219, 5880954, 30665543 ####[facility] [address] [place] [address] AST [Catalytic activity/Vol] 80 Int._Unit/L High 5-43 [facility] Comment on above: Performed By: #### 2 968573, 5566400, 27745369, 6327142, 2431709, 7402749, 82435021 ####[facility] [address] [place] [address] Bilirubin [Mass/Vol] 8.1 mg/dL High 0.0-1.1 [facility] Comment on above: Performed By: #### 2 350138, 6920397, 58895265, 3075972, 9906823, 4144580, 64492650 ####[facility] [address] [place] [address] Creatinine [Mass/Vol] 0.6 mg/dL Normal 0.5-1.3 [facility] Comment on above: Performed By: #### 2 795602, 8635572, 31714133, 4832132, 9294596, 8705863, 91437719 ####[facility] [address] [place] [address] Globulin (S) [Mass/Vol] 4.7 g/dL High 1.4-4.0 [facility] Comment on above: Performed By: #### 2 630152, 7461886, 34413693, 0290608, 4235244, 8708121, 47872920 ####[facility] [address] [place] [address] Protein [Mass/Vol] 7.2 g/dL Normal 6.0-7.8 [facility] Comment on above: Performed By: #### 2 887416, 9343080, 13656067, 7399505, 3691343, 1896411, 72529784 ####[facility] [address] [place] [address] Urea nitrogen [Mass/Vol] 7 mg/dL Normal 5-21 [facility] Comment on above: Performed By: #### 2 277545, 7401773, 90988197, 2480103, 8159117, 5136231, 02927476 ####[facility] [address] [place] [address] Urea nitrogen/Creatinine [Mass ratio] 12 No Units Normal 10-20 [facility] Comment on above: Performed By: #### 2 476371, 1464594, 85454644, 0699364, 9671922, 9228756, 75614544 ####[facility] [address] [facility] [place] [address] Anion gap [Moles/Vol] 8 mmol/L Normal 6-16 [facility] Comment on above: Performed By: #### 2 847343, 1031044, 69970177, 2213676, 7284128, 2840700, 84511376 ####[facility] [address] [place] [address] Calcium [Mass/Vol] 8.2 mg/dL Low 8.9-11.1 [facility] Comment on above: Performed By: #### 2 323158, 5929640, 62481851, 6468256, 4187387, 7870124, 26289743 ####[facility] [address] [place] [address] Chloride [Moles/Vol] 103 mmol/L Normal 101-111 [facility] Comment on above: Performed By: #### 2 070133, 2594060, 01523643, 5380996, 9200925, 5298811, 17817886 ####[facility] [address] [place] [address] CO2 [Moles/Vol] 25 mmol/L Normal 21-31 [facility] Comment on above: Performed By: #### 2 025757, 8965203, 78691938, 4227311, 8504250, 5086872, 62668247 ####[facility] [address] [place] [address] Glucose [Mass/Vol] 146 mg/dL Normal 55-199 [facility] Comment on above: Result Comment: If t his glucose result represents a fasting glucose, interpretation should refer to the following reference range: 55-99 mg/dL Performed By: #### 2 442441, 8905881, 29169073, 2758513, 7426650, 1571255, 28559172 ####[facility] [address] [place] [address] Potassium [Moles/Vol] 3.0 mmol/L Low 3.5-5.3 [facility] Comment on above: Performed By: #### 2 994640, 1553953, 69277779, 2395448, 1452034, 4127377, 22243189 ####[facility] [address] [place] [address] Sodium [Moles/Vol] 133 mmol/L Low 135-145 [facility] Comment on above: Performed By: #### 2 509600, 9897411, 11053291, 4949921, 6285821, 9318495, 03479184 ####[facility] [address] [place] [address] COAGULATIONOrdered By: Mayuri Russell on 03-22-2023 aPTT Coag (PPP) [Time] 42.0 s High 25.1 - 36.5 second(s) [facility] Auto Coag INR Coag (PPP) [Relative time] 2.6 {INR} Invalid Interpretation Code [facility] Auto Coag PT Coag (PPP) [Time] 30.4 s High 9.4 - 1 2.5 second(s) [facility] Auto Coag Consent for Treatmenton 03-07 Consent for Treatment [id number]#1 .00CD:127 Normal [facility] ED Clinical Summaryon 2022 ED Clinical Summary [address] [address] ED Clinical Summary Person Information Name: CINDY ANDERSNOZAHIDA [place] Age: 37 Years : 1985 Sex: Male Language: Japanese PCP: THEO BURKS Marital Status: Single Visit [...] 03/22/2023 21:57:13 03/22/2023 21:57:13 03/22/2023 21:57:13 ADDRESS: [address] [facility] [id number] PHYS DOC NOTES: MEDICAL INFORMATION: Prescriptions Given: New Medications [id number], [address] [place], [place] [id number], [phone] ondansetron (Zofran ODT 4 mg Tab-Dis) 1 Tablets By Mouth every 8 hours as needed Nausea/Vomiting. Refills: 0. sulfamethoxazole-trim ethoprim (Bactrim D.S. 800 mg-160 mg Tab) 1 Tablets By Mouth 2 times a day for 14 Days. Refills: 0. Medications to Continue with No Changes Other Medications clindamycin (clindamycin 150 mg Cap) 2 Capsules By Mouth 4 times a day. Refills: 0. PATIENT EDUCATION INFORMATION: Instructions: Cellulitis, Adult Follow up: With: Address: When: THEO BURKS In 3 days DIAGNOSIS: Cellulitis Normal [facility] ED Note-Physicianon 03-22-20 ED Note-Physician Basic [...] and Complexity of Problems Differential Diagnosis: [] [facility] Data External documents reviewed: N/A My EKG [...] Nausea/Vomiting, # 20 tab(s), Refills(s) 0, [facility]: [id number], 170, cm, 03/22/23 20:14:00 EDT, Height/Length Dosing, [...] 03/22/23 20:19:00 EDT, Infuse over 61, minute(s) sulfamethoxazole-trim ethoprim, 1 tab(s), Oral, BID for 14 day(s), 28 tab(s), Refill(s) 0, [id number], 170, cm, 03/22/23 20:14:00 EDT, Height/Length Dosing, 75.2, kg, 03/22/23 20:14:00 EDT, Weight Dosing sulfamethoxazole-trim ethoprim, 1 tab(s), Tab, Oral, Once, Stop date [...] Allergies amoxicillin (more content not included)... Normal [facility] Comment on above: Result Comment: Elec [...] these instructions at home: Medicines ? Take fdef-vgr-nrqyyoz and prescription medicines only as told by [...] as antibiotic medicines or antihistamines. ? Take rjvh-rbx-oohanka and prescription medicines only as told by [...] provider. Document Revised: 06/05/2022 Document Reviewed: 06/05/2022 [employer] Patient Education ? 2022 [employer]. Normal [facility] ED Patient Summaryon 023 ED Patient Summary [place] [id number] Patient Discharge Instructions Person Information Name: WILL ANDERSON Age: 37 Years Arrival Date: 03/22/2023 19:35:03 Discharge Diagnosis: Cellulitis Primary Care Physician: THEO BURKS Provider Information Primary Provider: Martin Reese DO [employer] Turner:None The exam and treatment you received in the Emergency Department were for an urgent problem and are not intended as complete care. It is important that you follow up with a doctor, nurse practitioner, or physician?s pet care assistant for ongoing care. If your symptoms [...] opioids can be used to help relieve hiejtmoj-bt-qgyvtx pain and are often prescribed following a [...] guidance from the Food and Drug Administration (www.fda.gov/Drugs/Re sourcesForYou). ? Visit www.cdc.gov/drugoverd ose to learn about the risks of opioids abuse and overdose. ? If you believe you may be struggling with addiction, tell your health senior resident care director and ask for guidance or call [facility]?S National Helpline at 8-533-127-WCNL. e Source: US Department of Health and Human Services/Center for Disease Control & Prevention [facility] (more content not included)... Normal [facility] HEMATOLOGYOrdered By: SYSTEM SYSTEM on 03-22-2023 Basophils/100 WBC (Bld) 0.4 % Normal 0.0 - 2.0 % [facility] HemeAutoSS Basophils/Leukocytes Auto (Bld) [Pure # fraction] 0.0 E9/L Normal 0.0 - 0.2 E9/L [facility] HemeAutoSS Eosinophils/100 WBC (Bld) 1.3 % Normal 0.0 - 8.0 % [facility] HemeAutoSS Eosinophils/Leukocyt es Auto (Bld) [Pure # fraction] 0.1 E9/L Normal 0.0 - 0.5 E9/L [facility] HemeAutoSS Lymphocytes/100 WBC (Bld) 14.6 % Normal 14.0 - 50.0 % [facility] HemeAutoSS Lymphocytes/Leukocyt es Auto (Bld) [Pure # fraction] 1.5 E9/L Normal 1.0 - 4.0 E9/L [facility] HemeAutoSS Monocytes/100 WBC (Bld) 7.9 % Normal 4.0 - 14.0 % [facility] HemeAutoSS Monocytes/Leukocytes Auto (Bld) [Pure # fraction] 0.8 E9/L Normal 0.2 - 1.0 E9/L [facility] HemeAutoSS Neutrophils/100 WBC (Bld) 75.8 % High 36.0 - 75.0 % [facility] HemeAutoSS Neutrophils/Leukocyt es Auto (Bld) [Pure # fraction] 7.7 E9/L [...] 34.1 pg High 27.0 - 34.0 pg FT HemeAutoSS MCHC (RBC) [Mass/Vol] 34.2 g/dL Normal 31.4 - 36.0 gm/dL FT HemeAutoSS MCV (RBC) [Entitic vol] 99.4 [...] 03-22-2023 Lactate [Mass/Vol] 2.0 mmol/L Normal 0.5-2.2 [facility] Comment on above: Performed By: #### 2 319214, 7089544, 40582418, 9478216, 2541422, 0789902, 44515310 ####[facility] [address] [facility] [place] [address] PT & PTTon 03-22-2023 aPTT Coag (PPP) [Time] 42.0 second(s) High 25.1-36.5 [facility] Comment on above: Result Comment: Para [...] the same coagulation reagent and instrumentation as [facility]. Currently there are no coagulation studies available worldwide for children to 14 days, and no normal ranges. Heparin therapeutic range (represented by Anti-Factor Xa activity of 0.2 - 0.4 U/mL) corresponds to PTT of 56.6 - 109.0 sec. Performed By: #### 2 839031, 6304987, 77544407, 7269990, 4866834, 5046573, 63413332 #### [facility] [address] [place] [address] INR Coag (PPP) [Relative time] 2.6 {INR} Invalid Interpretation Code [facility] Comment on above: Result Comment: INR results are specifically intended to assess patients stabilized on long-term Anticoagulation therapy suggested INR?s ?Less Intensive Anticoagulation? 2.0 ? 3.0 Conventional Range 3.0 ? 4.5 Performed By: #### 2 826666, 9851969, 62622213, 7347281, 3448129, 0113920, 82946705 #### [facility] [address] [place] [address] PT Coag (PPP) [Time] 30.4 second(s) High 9.4-12.5 [facility] Comment on above: Result Comment: 15 [...] the same coagulation reagent and instrumentation as [facility]. Currently there are no coagulation studies available worldwide for children to 14 days, and no normal ranges. Performed By: #### 2 401211, 9695103, 83315285, 1273885, 9878399, 3800480, 42603757 #### [facility] [address] [place] [address] Troponinon 03-22-2023 Troponin I.cardiac [Mass/Vol] 10.30 pg/mL Low 15.90-38.40 [facility] Comment on above: Result Comment: The 95% CI (Confidence Interval) PPV (Positive Predictive Value) for myocardial infarction in females is 38 pg/mL, in males 51 pg/mL. The results should be used in conjunction with clinical conditions of myocardial infarction. (Access High Sensitivity Troponin I Instructions For Use, [employer], April 2018) Performed By: #### 2 136382, 4955058, 33578027, 6141627, 0641091, 1093802, 48117578 ####[facility] [address] [place] [address] eGFRon 03-22-2023 GFR/1.73 sq M.predicted among non-blacks MDRD (S/P/Bld) [Vol rate/Area] 127 mL/min/1.73 m2 Normal >=59 [facility] Comment on above: Order Comment: Order added by Discern Expert. Result Comment: Dispatcher Chief Coal Slurry antonio kidney disease could be indicated at eGFR's of less than 60 mL/min/1.73m2. Kidney failure is indicated at less than 15 mL/min/1.73m2. Performed By: #### 2 806106, 7880565, 79629042, 0258056, 4081038, 5213606, 76593991 ####[facility] [address] [place] [address] Consent for Procedure/Surger yon 03-18-2023 Consent for Procedure/Surgery [id number]# 1.00CD:127 [facility] Consent for Treatmenton 03-07 Consent for Treatment [id number]#1 .00CD:127 [facility] Multi-Wound Charton 03-16-20 Multi-Wound Chart [id number]# 1.00CD:127 [facility] Nursing Assessment - Woundon 03-16-2023 Nursing Assessment - Wound [id number]# 1.00CD:127 [facility] Nursing Note - Woundon 03-16 Nursing Note - Wound [id number]# 1.00CD:127 [facility] Physician Orderon 03-16-2023 Physician Order [id number]# 1.00CD:127 [facility] Procedure - Woundon 03-16-20 Procedure - Wound [id number]# 1.00CD:127 [facility] Consent for Procedure/Surger yon 03-06-2023 Consent for Procedure/Surgery [id number]#1 .00CD:127 [facility] Consent to Photographon 02-07 Consent to Photograph [id number]#1 .00CD:127 [facility] Correspondence - Woundon Correspondence - Wound [id number]#1 .00CD:127 [facility] Correspondence - Wound [id number]#1 .00CD:127 [facility] Nursing Assessment - Woundon 03-06-2023 Nursing Assessment - Wound [id number]#1 .00CD:127 [facility] Telephone Encounteron 2022 [employer] Authentication Interface Message Text A prior authorization has been started for Lidocaine 5% patch PA status can be found under the prescription order in the Medication Tab. History or status of the PA can also be found in Chart Review under Referral tab. Normal [employer] [facility] Consent for Treatmenton 02-06 Consent for Treatment [id number]#1 .00CD:127 [facility] Multi-Wound Charton 03-05-20 Multi-Wound Chart [id number]#1 .00CD:127 [facility] Nursing Assessment - Woundon 03-05-2023 Nursing Assessment - Wound [id number]#1 .00CD:127 [facility] Nursing Note - Woundon 03-05 Nursing Note - Wound [id number]#1 .00CD:127 [facility] Physician Orderon 03-05-2023 Physician Order [id number]#1 .00CD:127 [facility] Procedure - Woundon 03-05-20 Procedure - Wound [id number]#1 .00CD:127 [facility] Progress Note - Woundon 02-06 Progress Note - Wound [id number]#1 .00CD:127 [facility] Progress Noteson 02-27-2023 [employer] Authentication Interface Message Text This encounter was opened in error. Patient was a No-Show. Please disregard. Normal [employer] Telephone Encounteron 2022 [employer] Leader Authentication Interface Message Text Pt had video visit scheduled. Link sent to him, but he never checked in. Normal [facility] [employer] [facility] [employer] Interface Message Text Called the patient Reminded him of his video visit this ThursdayMarch 03 with Lindsey Mahmood Pt concerned about his leg, he will send a picture to My Chart To his provider Concerned about his infection Notified Lindsey Mahmood Normal [facility] [employer] [facility] [employer] Interface Message Text What is the need: call back Situation: Pt states that the doctors office called him stating that they were running behind but he never got a phone call. Please advise Background: Please contact and advise Assessment: Pt contact info is Phone numbers Recommendation: n/a Thank you Normal [facility] [employer] Telephone Encounteron 2022 [employer] Leader Authentication Interface Message Text NB ~~thank you ~~K Normal [facility] [employer] Authentication Interface Message Text Called the patient Leg is not getting worse Getting a little better Concerned he is on the wrong antibiotic Scheduled for a video visit with Dr Winter partner Lindsey Mahmood for tomorrow @ 1140am Normal [facility] [employer] Virident Systemsation Interface Message Text PLEASE SEE MY CHART ENCOUTNER CLOSING THIS ENCOUTNER Normal [employer] Authentication Interface Message Text We should probably call and advise urgent care if we can't get him in. Maybe try to schedule with someone next week? Normal [facility] [employer] [facility] Telephone Encounteron 2022 [employer] Leader Authentication Interface Message Text Patient was identified by name and date of . EMILY COTO, RN Called patient to triage in [facility] messagehe states he is taking water pills [...] see any appointments until late next week. [employer] message: Will Ramo to Theo Burks MD [...] walk. Help please. Theo Burks MD to [facility] 02/25/23 2:30 PM Please call patient and triage. If pain is severe and cannot walk recommend follow up in ED. If some improvement, please have him come in for same day or next day appointment. Normal [facility] [employer] [facility] Consent for Treatmenton 02-05 Consent for Treatment [id number]:127 Normal [facility] Discharge Instructionson Discharge Instructions [id number]:127 Normal [facility] ED Clinical Summaryon 2022 ED Clinical Summary [place] [id number] ED Clinical Summary Person Information Name: WILL ANDERSON [place] Age: 37 Years : 1985 Sex: Male Language: Japanese PCP: THEO BURKS Marital Status: Single Visit [...] 02/18/2023 09:31:38 02/18/2023 09:31:38 02/18/2023 09:31:38 ADDRESS: [facility] [address] [place] [id number] PHYS DOC NOTES: MEDICAL INFORMATION: Prescriptions Given: New Medications [id number], [address] [place], [place] [id number], [phone] oxycodone (oxyCODONE 5 mg Cap) 1 Capsules By Mouth every 6 hours as needed for pain for 3 Days. Refills: 0. Medications to Continue Taking That Have Changed [id number], [address] [place], [place] [id number], [phone] START: clindamycin (clindamycin 300 mg oral cap) 1 Capsules By Mouth every 6 hours for 7 Days. Refills: 0. Other Medications START: clindamycin (clindamycin 150 mg Cap) 2 Capsules By Mouth 4 times a day. Refills: 0. PATIENT EDUCATION INFORMATION: Instructions: RICE Therapy for Routine Care of Injuries, Fvnz-jf-Cppy; Musculoskeletal Pain; Pain Without a Known Cause; Cellulitis, Adult, Bhfr-nt-Qlzm Follow up: With: Address: When: THEO BURKS In 3 days 02/21/2023 Comments: Follow-up with your primary care provider in 3 to 5 days. If symptoms worsen, do not improve, or new symptoms arise please report back to emergency department for further evaluation. DIAGNOSIS: Cellulitis of right leg; Right leg pain Normal [facility] ED Note-Physicianon 02-19-20 ED Note-Physician Basic Information Time Seen: Xander Anne PA-C 02/18/2023 08:05 Chief Complaint pt to ER [...] and Complexity of Problems Differential Diagnosis: [] [facility] Data External documents reviewed: [] My EKG [...] day(s), # 28 cap(s), Refills(s) 0, Pharmacy: [id number], 170, cm, 02/18/23 7:51:00 EDT, Height/Length Dosing, 77, kg, 02/18/23 7:51:00 EDT, Weight Dosing ibuprofen, 800 mg = 1 tab(s), Tab, Oral, Once, Stop date 02/18/23 8:22:00 EDT, STAT, Start date 02/18/23 8:22:00 EDT, 02/18/23 8:22:00 EDT oxycodone, 5 mg = 1 tab(s), Tab, Oral, Once, Stop date 02/18/23 8:22:00 E (more content not included)... Normal [facility] Comment on above: Result Comment: Elec tronically [...] these instructions at home: Medicines ? Take fbmc-lig-loynvyb and prescription medicines only as told by [...] provider. Document Revised: 06/05/2022 Document Reviewed: 06/05/2022 Elsevier Patient Education ? 2022 [employer] Orthopedics RICE Therapy for Routine Care of [...] bag. ? (more content not included)... Normal [facility] ED Patient Summaryon 023 ED Patient Summary [place] [id number] Patient Discharge Instructions Person Information Name: WILL ANDERSON Age: 37 Years Arrival Date: 02/18/2023 07:40:40 Discharge Diagnosis: Cellulitis of right leg; Right leg pain Primary Care Physician: THEO BURKS Provider Information Primary Provider: Brent Sanches DO [employer] Turner:None The exam and treatment you received in the Emergency Department were for an urgent problem and are not intended as complete care. It is important that you follow up with a doctor, nurse practitioner, or physician?s pet care assistant for ongoing care. If your symptoms [...] RICE Therapy for Routine Care of Injuries, Rsbb-jy-Lwko; Musculoskeletal Pain; Pain Without a Known Cause; Cellulitis, Adult, Vcvd-mx-Iszo A MESSAGE TO ALL PATIENTS REGARDING OPIOIDS PRESCRIPTION OPIOIDS: WHAT YOU NEED TO KNOW Prescription opioids can be used to help relieve xmaupscq-lx-uxqwfx pain and are often prescribed following a [...] guidance from the Food and Drug Administration (www.fda.gov/Drugs/Re sourcesForYou). ? Visit www.cdc.gov/drugoverd ose t (more content not included)... Normal [facility] LE Venous Duplex Righton 02-18-2023 LE Venous [...] M.D. Transcribed by: JUNIOR Technologist: TANIKA Razo [facility] Telephone Encounteron 2022 [employer] Leader Authentication Interface Message Text Last written 10/27/22 Normal [facility] [employer] [facility] XA HEPATIC VENOGRAM W/ HEMOD YN (CHRISTIANO)on 01-21-2023 XA HEPATIC VENOGRAM W/ HEMODYN (CHRISTIANO) EXAMINATION: XA TRANSJUGULAR LIVER BIOPSY (CHRISTIANO), XA HEPATIC VENOGRAM W/ HEMODYN (CHRISTIANO) 01/20/2023 10:46 AM CLINICAL HISTORY: Rad Procedure required: = Transjugular liver biopsy with portal pressure measurements,Suspecte d liver fibrosis ASSOCIATED DIAGNOSIS: Alcoholic fatty liver Hyperbilirubinemia Alcoholic hepatitis, unspecified whether ascites present ORDERING PROVIDER: HALEY GARY TECHNOLOGISTS NOTE: Right atrium: 14, pre hepatic: 18, wedged hepatic: 32. Moderate sedation intraservice time 0034-1193 FLUOROSCOPIST: ERICA ROCK FLUORO TIME: 41.6 Minutes ATTENDING PHYSICIAN: Erica Rock [...] microaccess catheter under fluoroscopic guidance. A 10 Montenegrin curved tip renal vein sheath was then advanced over the wire into the right atrium. The obturator was removed and a 5 Montenegrin MPB catheter was used to select the [...] vein was again selected with a 5 Montenegrin MPB catheter which was then exchanged over an Amplatz wire for the 10 Montenegrin venous sheath. This was repeated several times for attempted transvenous liver biopsy through the right hepatic vein; however, the 10 Montenegrin sheath withdrew during attempted advancement of the biopsy catheter. The 10 Montenegrin venous sheath was then withdrawn into the intrahepatic IVC. The middle hepatic vein was selected with the same 5 Montenegrin catheter which was then exchanged over an Amplatz wire for the 10 Montenegrin venous sheath. The 10 Montenegrin transvenous biopsy catheter was then advanced into the middle hepatic venous sheath and deployed twice for liver biopsy. The transvenous biopsy catheter and a 10 Montenegrin venous sheath were removed. Satisfactory hemostasis was [...] increased portosystemic gradient. MACRO: None Normal [employer] XA TRANSJUGULAR LIVER BIOPSY (CHRISTIANO)on 01-21-2023 XA TRANSJUGULAR LIVER BIOPSY (CHRISTIANO) EXAMINATION: XA TRANSJUGULAR LIVER BIOPSY (CHRISTIANO), XA HEPATIC VENOGRAM W/ HEMODYN (HCRISTIANO) 01/20/2023 10:46 AM CLINICAL HISTORY: Rad Procedure required: = Transjugular liver biopsy with portal pressure measurements,Suspecte d liver fibrosis ASSOCIATED DIAGNOSIS: Alcoholic fatty liver Hyperbilirubinemia Alcoholic hepatitis, unspecified whether ascites present ORDERING PROVIDER: HALEY GARY TECHNOLOGISTS NOTE: Right atrium: 14, pre hepatic: 18, wedged hepatic: 32. Moderate sedation intraservice time [id number] FLUOROSCOPIST: ERICA ROCK FLUORO TIME: 41.6 Minutes ATTENDING PHYSICIAN: Erica Rock [...] microaccess catheter under fluoroscopic guidance. A 10 Montenegrin curved tip renal vein sheath was then advanced over the wire into the right atrium. The obturator was removed and a 5 Montenegrin MPB catheter was used to select the [...] vein was again selected with a 5 Montenegrin MPB catheter which was then exchanged over an Amplatz wire for the 10 Montenegrin venous sheath. This was repeated several times for attempted transvenous liver biopsy through the right hepatic vein; however, the 10 Montenegrin sheath withdrew during attempted advancement of the biopsy catheter. The 10 Montenegrin venous sheath was then withdrawn into the intrahepatic IVC. The middle hepatic vein was selected with the same 5 Montenegrin catheter which was then exchanged over an Amplatz wire for the 10 Montenegrin venous sheath. The 10 Montenegrin transvenous biopsy catheter was then advanced into the middle hepatic venous sheath and deployed twice for liver biopsy. The transvenous biopsy catheter and a 10 Montenegrin venous sheath were removed. Satisfactory hemostasis was [...] increased portosystemic gradient. MACRO: None Normal [facility] PROTHROMBIN TIME AND INRon 0 - INR Coag (PPP) [Relative time] 2.49 {INR} High 0.90-1.10 [facility] Comment on above: Performed By: #### P T #### [facility] [address] [place] [address], PT Coag (PPP) [Time] 27.9 s High 9.7-12.9 [facility] Comment on above: Performed By: #### P T #### [facility] [address] [place] [address], BASIC METABOLIC PANELon 05-0 Anion gap [Moles/Vol] 12 mmol/L Normal 10-20 [facility] Comment on above: Performed By: #### P T #### [facility] [address] [place] [address], Calcium [Mass/Vol] 8.3 mg/dL Low 8.4-10.4 [facility] Comment on above: Performed By: #### P T #### [facility] [address] [place] [address], Chloride [Moles/Vol] 105 mmol/L Normal 97-111 [facility] Comment on above: Performed By: #### P T #### [facility] [address] [place] [address], CO2 [Moles/Vol] 26 mmol/L Normal 21-30 [facility] Comment on above: Performed By: #### P T #### [facility] [address] [place] [address], Creatinine [Mass/Vol] 0.60 mg/dL Low 0.80-1.30 [facility] Comment on above: Performed By: #### P T #### [facility] [address] [place] [address], ESTIMATED GFR (CKD-EPI) 127 mL/min/1.73sqm Normal >=60 [facility] Comment on above: Result Comment: 2020 [...] Inclusion of Race in Diagnosing Kidney Disease. [place] Journal of Kidney Diseases 202;79(2):268-88.e1. 2. N Engl J Med 1 Vol. 385 Issue 19 Pages 9666-3344 Performed By: #### P T #### S PATHOLOGY LABORATORY [address] [place] [address], Potassium [Moles/Vol] 3.5 mmol/L Normal 3.3-5.3 [facility] Comment on above: Performed By: #### P T #### S [facility] LAB[facility]ATORY [address] [place] [address], Sodium [Moles/Vol] 139 mmol/L Normal 135-148 [facility] Comment on above: Performed By: #### P T #### S PATHOLOGY LABORATORY [address] [place] [address], Urea nitrogen [Mass/Vol] 4 mg/dL Low 8-22 [facility] Comment on above: Performed By: #### P T #### S PATHOLOG[facility] LABORATORY [address] [place] [address], Basic metabolic 2000 panelon 01-12-2023 Anion gap [Moles/Vol] 12 mmol/L 10 - 20 [facility] Calcium [Mass/Vol] 8.3 mg/dL Low 8.4 - 10.4 mg/dL [facility] Chloride [Moles/Vol] 105 mmol/L 97 - 111 mmol/L [facility] CO2 [Moles/Vol] 26 mmol/L 21 - 30 mmol/L [facility] Creatinine [Mass/Vol] 0.60 mg/dL Low 0.80 - 1.30 mg/dL [facility] GFR/1.73 sq M.predicted MDRD (S/P/Bld) [Vol rate/Area] 127 mL/min/{1.73_m2} [facility] Comment on above: 2020 CKD EPI Equatio [...] Inclusion of Race in Diagnosing Kidney Disease. [place] Journal of Kidney Diseases 2021;79(2):268-88.e1. 2. N Engl J Med 2020 Vol. 385 Issue 19 Pages 8809-3665 Glucose [Mass/Vol] 82 mg/dL 68 - 110 mg/dL [facility] Potassium [Moles/Vol] 3.5 mmol/L 3.3 - 5.3 mmol/L [facility] Sodium [Moles/Vol] 139 mmol/L 135 - 148 mmol/L [facility] Urea nitrogen [Mass/Vol] 4 mg/dL Low 8 - 22 mg/dL [facility] C-PEPTIDE, SERUMon C peptide [Mass/Vol] 3.52 ng/mL 0.81 - 3.85 ng/ mL [facility] Interpretation and review of laboratory results Normal [facility] CPEP 3.52 ng/mL Normal 0.81-3.85 [facility] Comment on above: Performed By: #### P T #### S PATHOLOGY LABORATORY [address] [place] [address], [id number] CBC panel Auto (Bld)on 01-12 Erythrocyte distribution width (RBC) [Ratio] 15.7 % High 11.5 - 14.5 % [facility] Hematocrit (Bld) [Volume fraction] 35.4 % Low 41.0 - 53.0 % [facility] Hemoglobin (Bld) [Mass/Vol] 12.1 g/dL Low 13.9 - 16.3 g/dL [facility] Interpretation and review of laboratory results Abnormal [facility] MCH (RBC) [Entitic mass] 36.7 pg High 26.0 - 34.0 pg [facility] MCHC (RBC) [Mass/Vol] 34.3 g/dL 32.0 - 35.9 g/dL [facility] MCV (RBC) [Entitic vol] 107 fL High 80 - 100 fL [facility] Platelet mean volume (Bld) [Entitic vol] 8.3 fL 7.5 - 11.2 fL [facility] Platelets (Bld) [#/Vol] 110 10*3/uL Low 150 - 400 K/uL [facility] RBC (Bld) [#/Vol] 3.31 10*6/uL Low [facility] WBC (Bld) [#/Vol] 6.6 10*3/uL 4.5 - 11.5 K/uL M [facility] COMPLETE BLOOD COUNTon 01-12 Erythrocyte distribution width (RBC) [Ratio] 15.7 % High 11.5-14.5 The [facility] Comment on above: Performed By: #### P T #### [facility] [address] [place] [address], Hematocrit (Bld) [Volume fraction] 35.4 % Low 41.0-53.0 [facility] Comment on above: Performed By: #### P T #### [facility] [address] [place] [address], Hemoglobin (Bld) [Mass/Vol] 12.1 g/dL Low 13.9-16.3 The [facility] Comment on above: Performed By: #### P T #### [facility] [address] [place] [address], MCH (RBC) [Entitic mass] 36.7 pg High 26.0-34.0 The [facility] Comment on above: Performed By: #### P T #### S PATHOLOGY LABORATORY [address] [place] [address], MCHC (RBC) [Mass/Vol] 34.3 g/dL Normal 32.0-35.9 The [facility] Comment on above: Performed By: #### P T #### S PATHOLOGY LABORATORY [address] [place] [address], MCV (RBC) [Entitic vol] 107 fL High 80-100 The [facility] Comment on above: Performed By: #### P T #### S PATHOLOGY LABORATORY [address] [place] [address], Platelet mean volume (Bld) [Entitic vol] 8.3 fL Normal 7.5-11.2 The [facility] Comment on above: Performed By: #### P T #### S PATHOLOGY LABORATORY [address] [place], [place], Platelets (Bld) [#/Vol] 110 10*3/uL Low 150-400 [facility] Comment on above: Performed By: #### P T #### S PATHOLOG[facility] LABORATORY [address] [place] [address], RBC (Bld) [#/Vol] 3.31 10*6/uL Low 4.50-5.90 The [facility] Comment on above: Performed By: #### P T #### S PATHOLOGY LABORATORY [address] [place], [place], WBC (Bld) [#/Vol] 6.6 10*3/uL Normal 4.5-11.5 The [facility] Comment on above: Performed By: #### P T #### S PATH[facility] LAB[facility]ATORY [address] [place] [address], Diabetes tracking panelOrder ed By: Moi Christianson on 01-12-2023 Average glucose Estimated from glycated hemoglobin (Bld) [Mass/Vol] 82 mg/dL [facility] HbA1c (Bld) [Mass fraction] 4.5 % 4.0 - 5.6 % [employer] HEMOGLOBIN A1Con 01-12-2023 Glucose [Mass/Vol] 82 mg/dL Normal 68-110 The [facility] Comment on above: Performed By: #### H B A1C ####[facility] [address] [place], [address] Performed By: #### P T #### [facility] [address] [place], [place], HbA1c (Bld) [Mass fraction] 4.5 % Normal 4.0-5.6 [facility] Comment on above: Performed By: #### H B A1C ####[facility] [address] [place], [address] HEPATIC FUNCTION PANELon Albumin [Mass/Vol] 3.2 g/dL Low 3.4-5.1 [facility] Comment on above: Performed By: #### P T #### S PATHOLOG[facility] LABORATORY [address] [place] [address], ALK 336 IU/L High 40-200 [facility] Comment on above: Performed By: #### P T #### [facility] [address] [place] [address], ALT [Catalytic activity/Vol] 43 U/L High 7-40 [facility] Comment on above: Performed By: #### P T #### [facility] [address] [place] [address], AST [Catalytic activity/Vol] 73 U/L High 7-40 [facility] Comment on above: Performed By: #### P T #### [facility] [address] [place] [address], Bilirubin [Mass/Vol] 8.2 mg/dL High 0.1-1.5 [facility] Comment on above: Performed By: #### P T #### [facility] [address] [place] [address], Bilirubin.direct [Mass/Vol] 2.28 mg/dL High 0.10-0.30 [facility] Comment on above: Performed By: #### P T #### S PATHOLOGY LABORATORY [address] [place] [address], Protein [Mass/Vol] 7.9 g/dL Normal 6.2-8.3 [facility] Comment on above: Performed By: #### P T #### S PATHOLOGY LABORATORY [address] [place] [address], Albumin [Mass/Vol] 3.2 g/dL Low 3.4 - 5.1 g/dL [facility] ALP [Catalytic activity/Vol] 336 U/L High [facility] ALT [Catalytic activity/Vol] 43 U/L High [facility] AST [Catalytic activity/Vol] 73 U/L High [facility] Bilirubin [Mass/Vol] 8.2 mg/dL High 0.1 - 1.5 mg/dL [facility] Bilirubin.direct [Mass/Vol] 2.28 mg/dL High 0.10 - 0.30 mg/dL [facility] Protein [Mass/Vol] 7.9 g/dL 6.2 - 8.3 g/dL [facility] INSULINon 01-12-2023 Insulin Free Qn 38.9 High [facility] Interpretation and review of laboratory results Abnormal [facility] INSUL 38.9 mIU/L High 2.0-25.0 The [facility] Comment on above: Performed By: #### P T #### [facility] [address] [place] [address], No Panel Informationon 01-12 Interpretation and review of laboratory results Abnormal [employer] PROTHROMBIN TIME AND INRon 0 01-12-2023 INR Coag (PPP) [Relative time] 1.87 {INR} High 0.90-1.10 [facility] Comment on above: Performed By: #### P T #### [facility] [address] [place] [address], PT Coag (PPP) [Time] 21.0 s High 9.7-12.9 [facility] Comment on above: Performed By: #### P T #### [facility] [address] [place] [address], INR Coag (PPP) [Relative time] 1.87 {INR} High 0.90 - 1.10 [facility] Interpretation and review of laboratory results Abnormal [facility] PT Coag (PPP) [Time] 21.0 s High [facility] Progress Noteson 01-12-2023 [employer] Authentication Interface Message Text Labs drawn peripherally from right forearm. Normal The [facility] [employer] Leader Authentication Interface Message Text Hematology AND Oncology [...] and headaches. Endo/Heme/Allergies: Does not bruise/bleed easily. Psychiatric/Behaviora l: Negative for depression, substance abuse and suicidal ideas. The patient is not nervous/anxious and does not have insomnia. 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 10 Tablet 0 sulfamethoxazole-trim ethoprim 800-160 MG (Bactrim DS) 800-160 MG per [...] angela (more content not included)... Normal [employer] Authentication Interface Message Text Patient was identified [...] (79 kg), SpO2 100 %. Gustabo Pittman Normal [facility] [employer] [facility] [employer] Authentication Interface Message Text Patient was identified by name and date of . April Jewell Patient at risk for falls:No Falls Risk protocol implemented: No Normal [facility] [employer] [facility] [employer] Systemsation Interface Message Text Attestation signed by Haley [...] Gary MD Division of Gastroenterology AND Hepatology [facility] Department of Gastroenterology and Hepatology Hepatology [...] Tablet by mouth daily. 10 Tablet 0 sulfamethoxazole-trim ethoprim 800-160 MG (Bactrim DS) 800-160 MG per [...] visit. (more content not included)... Normal [facility] [employer] [facility] Patient Instructionson 12-16 [employer] Leader Authentication Interface Message Text [facility] [phone] [place] [address] Lab tests can be done at a scheduled visit, or by appointment. [facility] [phone] [place] [address] Park in the Outpatient [place] [facility] (P[address]) Under the [facility]. Pathology is located in the [facility] [place] of the [facility] [place] on the 2nd floor. Please fill out the paper form at the computer help desk representative then have a seat in the Outpatient Blood Draw Lab (Pathology) waiting area. Hours Thursday 07:00 AM - 05:30 PM Thursday 07:00 AM - 05:30 PM Thursday 07:00 AM - 05:30 PM 07:00 AM - 05:30 PM Thursday 07:00 AM - 05:30 PM [facility] [phone] [place] [address] Follow the overhead sign to [place]: Radiology/X-ray AND Lab (right arrow). Check in for testing at the Radiology AND Lab Periodicals Library Assistant window. Hours Thursday 10:00 AM - 02:00 PM Thursday 08:00 AM - 07:30 PM Thursday 08:00 AM - 07:30 PM Thursday 08:00 AM - 07:30 PM 08:00 AM - 07:30 PM Thursday 08:00 AM - 07:30 PM Thursday 08:00 AM - 04:00 PM [facility] [phone] [place] [address] [place] at the computer help desk representative and you will be directed to the waiting area. Laboratory staff will take you back to the laboratory. Hours Thursday 10:00 AM - 02:00 PM Thursday 07:30 AM - 07:30 PM Thursday 07:30 AM - 07:30 PM Thursday 07:30 AM - 07:30 PM 07:30 AM - 07:30 PM Thursday 07:15 AM - 07:45 PM Thursday 08:00 AM - 04:00 PM [facility] [phone] [place] [address] Enter through the front door and continue [...] 08:00 AM - 04:00 PM [facility] [id number] [place], [place] [id number] The [facility] is located on the first [...] PM Thursday 07:30 AM - 05:00 PM [facility] [phone] [place] [address] The [facility] is located on the first floor, room A1-3054. Enter through the Emergency doors and follow the signs to Medical Offices , making a right turn. [place] at the Registration 1A desk at the end of the hallway, then proceed to the Laboratory on the right. Hours Thursday 07:30 AM - 05:00 PM Thursday 07:30 AM - 05:00 PM Thursday 07:30 AM - 05:00 PM 07:30 AM - 05:00 PM Thursday 07:30 AM - 05:[address] [facility] [phone] [place], [place] [id number] The [facility] is located on the first [...] 08:00 AM - 05:00 PM Normal [facility] Progress Noteson 12-16-2022 [employer] Leader Authentication Interface Message Text Chief Complaint: Will Ramo comes to the clinic today for: Chief [...] no previous surgical history on file. Diagnostics: [facility]/diagnostic s reviewed and Outside laboratory/diagnostic s reviewed Review of Systems As per HPI [...] on file. Dejuan Lechuga MD Normal The [facility] [employer] Leader Authentication Interface Message Text Patient was identified by name and date of . Aleja Rolon Normal [facility] Progress Noteson 12-15-2022 [employer] Leader Authentication Interface Message Text [facility] Telemedicine Visit CC: Chief Complaint Patient presents with Fall HPI: Patient is a 37 year old cordero with a history of cirrhosis , autoimmune hemolytic anemia who presents for the below. 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 OBJECTIVE: Sounds ewll, no acute distress Breathing comfrotably on room air ASSESSMENT AND PLAN: 1. Rib pain Orders AND Meds Signed During This Encounter X-ray Ribs Left Unilateral (Routine) lidocaine (LIDODERM) 5 % patch Documentation: Mode: Telephone Patient Patient Work Phone: Patient Cell Preferred phone: [phone] Consent: I confirmed patient understanding of the [...] Theo Burks MD Family Medicine Normal [facility] Telephone Encounteron 2022 [employer] Leader Authentication Interface Message Text Called patient and made appointment with tomorrow Normal [facility] Telephone Encounteron 2022 [employer] Leader Authentication Interface Message Text Called patient and made appointment Normal [facility] ALPHA FETOPROTEIN TUMOR ANDRIA Jeri 11-13-2022 AFP 4.4 ng/mL Normal <=8.4 [facility] Comment on above: Performed By: #### P T #### S PATHOLOGY LABORATORY [address] [place], [place], AFP 4.4 ng/mL NINF - 8.4 ng/mL [facility] Interpretation and review of laboratory results Normal [employer] BASIC METABOLIC PANELon 03 Anion gap [Moles/Vol] 10 mmol/L Normal 10-20 [facility] Comment on above: Performed By: #### P T #### S PATHOLOGY LABORATORY [address] [place], [place], Calcium [Mass/Vol] 8.7 mg/dL Normal 8.4-10.4 [facility] Comment on above: Performed By: #### P T #### S PATHOLOGY LABORATORY [address] [place] [address], Chloride [Moles/Vol] 102 mmol/L Normal 97-111 [facility] Comment on above: Performed By: #### P T #### S PATHOLOGY LABORATORY [address] [place], [place], CO2 [Moles/Vol] 30 mmol/L Normal 21-30 [facility] Comment on above: Performed By: #### P T #### S PATHOLOGY LABORATORY [address] [place], [place], Creatinine [Mass/Vol] 0.50 mg/dL Low 0.80-1.30 The [facility] Comment on above: Performed By: #### P T #### S PATHOLOGY LABORATORY [address] [place], [place], ESTIMATED GFR (CKD-EPI) 134 mL/min/1.73sqm Normal >=60 The [facility] Comment on above: Result Comment: 2020 [...] Inclusion of Race in Diagnosing Kidney Disease. [place] Journal of Kidney Diseases 2021;79(2):268-88.e1. 2. N Engl J Med 1 Vol. 385 Issue 19 Pages [phone] Performed By: #### P T #### [facility] [address] [place] [address], Glucose [Mass/Vol] 70 mg/dL Normal 68-110 [facility] Comment on above: Performed By: #### P T #### [facility] [address] [place] [address], Potassium [Moles/Vol] 3.1 mmol/L Low 3.3-5.3 [facility] Comment on above: Performed By: #### P T #### S PATHOLOGY LABORATORY [address] [place] [address], Sodium [Moles/Vol] 139 mmol/L Normal 135-148 [facility] Comment on above: Performed By: #### P T #### S PATHOLOGY LABORATORY [address] [place] [address], Urea nitrogen [Mass/Vol] 5 mg/dL Low 8-22 [facility] Comment on above: Performed By: #### P T #### S PATHOLOGY LABORATORY [address] [place] [address], Basic metabolic 2000 panelon 11-13-2022 Anion gap [Moles/Vol] 10 mmol/L 10 - 20 [facility] Calcium [Mass/Vol] 8.7 mg/dL 8.4 - 10.4 mg/dL [facility] Chloride [Moles/Vol] 102 mmol/L 97 - 111 mmol/L [facility] CO2 [Moles/Vol] 30 mmol/L 21 - 30 mmol/L [facility] Creatinine [Mass/Vol] 0.50 mg/dL Low 0.80 - 1.30 mg/dL [facility] GFR/1.73 sq M.predicted MDRD (S/P/Bld) [Vol rate/Area] 134 mL/min/{1.73_m2} - PINF [facility] Comment on above: [...] Inclusion of Race in Diagnosing Kidney Disease. [place] Journal of Kidney Diseases 2021;79(2):268-88.e1. 2. N Engl J Med 2021 Vol. 385 Issue 19 Pages 2359-6843 Glucose [Mass/Vol] 70 mg/dL 68 - 110 mg/dL [facility] Potassium [Moles/Vol] 3.1 mmol/L Low 3.3 - 5.3 mmol/L [facility] Sodium [Moles/Vol] 139 mmol/L 135 - 148 mmol/L [facility] Urea nitrogen [Mass/Vol] 5 mg/dL Low 8 - 22 mg/dL [facility] CBC WITH DIFFERENTIALon 03-0 Basophils (Bld) [#/Vol] 0.04 10*3/uL Normal 0.00-0.20 [facility] Comment on above: Performed By: #### A RETIC, CBCDSAT ####[facility] PATHOLOGY [id number] [place], [place], Basophils/100 WBC (Bld) 0.6 % Normal <=1.9 [facility] Comment on above: Performed By: #### A RETIC, CBCDSAT ####[facility] PATHOLOGY [id number] [place], [place], Eosinophils (Bld) [#/Vol] 0.21 10*3/uL Normal 0.00-0.70 [facility] Comment on above: Performed By: #### A RETIC, CBCDSAT ####[facility] PATHOLOGY [id number] [place], [place], Eosinophils/100 WBC (Bld) 3.6 % Normal 0.1-4.0 [facility] Comment on above: Performed By: #### A RETIC, CBCDSAT ####[facility] PATHOLOGY [id number] [place], [place], Erythrocyte distribution width (RBC) [Ratio] 15.8 % High 11.5-14.5 The [facility] Comment on above: Performed By: #### A RETIC CBCDSAT ####[facility] PATHOLOGY [id number] [place], [place], Hematocrit (Bld) [Volume fraction] 29.4 % Low 41.0-53.0 The [facility] Comment on above: Performed By: #### A RETIC CBCDSAT ####[facility] PATHOLOGY [id number] [place], [place], Hemoglobin (Bld) [Mass/Vol] 10.4 g/dL Low 13.9-16.3 The [facility] Comment on above: Performed By: #### A RETIC CBCDSAT ####[facility] PATHOLOGY [id number] [place] [address], Lymphocytes (Bld) [#/Vol] 1.21 10*3/uL Normal 1.00-4.80 The [facility] Comment on above: Performed By: #### A RETIC CBCDSAT ####[facility] PATHOLOGY [id number] [place] [address], Lymphocytes/100 WBC (Bld) 21.2 % Low 24.0-44.0 The [facility] Comment on above: Performed By: #### A RETIC CBCDSAT ####[facility] PATHOLOGY [id number] [place], [place], MCH (RBC) [Entitic mass] 38.5 pg High 26.0-34.0 The [facility] Comment on above: Performed By: #### A RETIC CBCDSAT ####[facility] PATHOLOGY [id number] [place], [place], MCHC (RBC) [Mass/Vol] 35.3 g/dL Normal 32.0-35.9 The [facility] Comment on above: Performed By: #### A RETIC CBCDSAT ####[facility] PATHOLOGY [id number] [place], [place], MCV (RBC) [Entitic vol] 109 fL High 80-100 The [facility] Comment on above: Performed By: #### A RETIC, CBCDSAT ####[facility] PATHOLOGY [id number] [place], [place], MONOCYTE DISTRIBUTION WIDTH Normal [facility] Comment on above: Performed By: #### A RETIC, CBCDSAT ####[facility] PATHOLOGY [id number] [place], [place], Monocytes (Bld) [#/Vol] 0.65 10*3/uL Normal 0.20-1.00 The [facility] Comment on above: Performed By: #### A RETIC, CBCDSAT ####[facility] PATHOLOGY [id number] [place], [place], Monocytes/100 WBC (Bld) 11.4 % High 2.0-11.0 [facility] Comment on above: Performed By: #### A RETIC, CBCDSAT ####[facility] PATHOLOGY [id number] [place] [address], Neutrophils (Bld) [#/Vol] 3.63 10*3/uL Normal 1.50-8.00 The [facility] Comment on above: Performed By: #### A RETIC, CBCDSAT ####[facility] PATHOLOGY [id number] [place], [place], Neutrophils/100 WBC (Bld) 63.2 % Normal 31.0-76.0 The [facility] Comment on above: Performed By: #### A RETIC, CBCDSAT ####[facility] PATHOLOGY [id number] [place], [place], Platelet mean volume (Bld) [Entitic vol] 8.2 fL Normal 7.5-11.2 The [facility] Comment on above: Performed By: #### A RETIC, CBCDSAT ####[facility] PATHOLOGY [id number] [place], [place], Platelets (Bld) [#/Vol] 82 10*3/uL Low 150-400 The [facility] Comment on above: Performed By: #### A RETIC, CBCDSAT ####[facility] PATHOLOGY [id number] [place], [place], RBC (Bld) [#/Vol] 2.69 10*6/uL Low 4.50-5.90 The [facility] Comment on above: Performed By: #### A RETIC, CBCDSAT ####[facility] PATHOLOGY [id number] [place], [place], WBC (Bld) [#/Vol] 5.7 10*3/uL Normal 4.5-11.5 The [facility] Comment on above: Performed By: #### A RETIC, CBCDSAT ####[facility] PATHOLOGY [id number] [place], [place], Basophils (Bld) [#/Vol] 0.04 10*3/uL 0.00 [...] (RBC) [Mass/Vol] 35.3 g/dL 32.0 - 35.9 g/dL [facility] MCV (RBC) [Entitic vol] 109 fL High 80 - 100 fL [facility] Monocyte distribution width Auto (Bld) [Entitic vol] [facility] Monocytes (Bld) [#/Vol] 0.65 10*3/uL 0.20 - 1.00 K/uL [facility] Monocytes/100 WBC (Bld) 11.4 % High 2.0 - 11.0 % [facility] Neutrophils (Bld) [#/Vol] 3.63 10*3/uL 1.50 - 8.00 K/uL [facility] Neutrophils/100 WBC (Bld) 63.2 % 31.0 - 76.0 % [facility] Platelet mean volume (Bld) [Entitic vol] 8.2 fL 7.5 - 11.2 fL [facility] Platelets (Bld) [#/Vol] 82 10*3/uL Low 150 - 400 K/uL [facility] RBC (Bld) [#/Vol] 2.69 10*6/uL Low [facility] WBC (Bld) [#/Vol] 5.7 10*3/uL 4.5 - 11.5 K/uL [facility] DIRECT ANTIGLOBULIN TESTon 0 11-13-2022 AYLIN PS INT Negative Normal The [facility] Comment on above: Performed By: #### D AT ####[facility] PATHOLOGY [id number] [place], [place], Direct antiglobulin test.poly specific reagent Ql (RBC) Negative [employer] HAPTOGLOBINon 11-13-2022 HAPTOGLOBIN < 30 Low 36-220 [facility] Comment on above: Performed By: #### H EMO DNA #### [facility] Pathology [address] [place], [place] Haptoglobin [Mass/Vol] mg/dL Low 36 - 220 mg/dL [facility] Interpretation and review of laboratory results Abnormal [employer] HEMOCHROMATOSIS DNA TESTon 0 11-13-2022 HFE GENE MUTATION ANALYSIS See Below Normal The [facility] Comment on above: Order Comment: Kelly esparza Agency Address Site ID: [id number] Name: [facility], Address: [address] [place] [id number] Director: Ambika Lara MD,PhD,HÉCTOR Result Comment: DL [...] variants in the HFE gene, C282Y (NM [id number]: c.845G>A, p.Kfu015Opr) and H63D (NM 040052.2: c.187C>G, p.Rtz74Nri), that are commonly associated with HH. These [...] Health care providers, please contact your local [facility] genetic counselor or call [phone] ( ) for assistance with the interpretation of these results. This test was developed and its analytical performance characteristics have been determined by [facility]. It has not been cleared or approved by FDA. This assay has been validated pursuant to the CLIA regulations and is used for clinical purposes. For more information, please refer to http://education.Ecorithm.com/faq/hemochromatosis. (This link is being provided for informational/educational purposes only.) Reviewed and signed by Laboratory results and submitted clinical information reviewed by Lorna Strong, Ph.D., FACMG, HCLD, CGMB, Signed on 11/28/2022 at 20:40 Performed By: #### H EMO DNA #### [facility] [address] [place] [address] HEPATIC FUNCTION PANELon Albumin [Mass/Vol] 2.9 g/dL Low 3.4-5.1 [facility] Comment on above: Performed By: #### H EMO DNA #### [facility] [address] [facility] [place], [place] ALK 386 IU/L High 40-200 [facility] Comment on above: Performed By: #### H EMO DNA #### [facility] Pathology [address] [place] [address] [place], [place] ALT [Catalytic activity/Vol] 36 U/L Normal 7-40 The [facility] Comment on above: Performed By: #### H EMO DNA #### [facility] Pathology [address] [place] [address] AST [Catalytic activity/Vol] 68 U/L High 7-40 The [facility] Comment on above: Performed By: #### H EMO DNA #### [facility] [address] [place] [address] Bilirubin [Mass/Vol] 6.9 mg/dL High 0.1-1.5 The [facility] Comment on above: Performed By: #### H EMO DNA #### [facility] Pathology [address] [place] [address] Bilirubin.direct [Mass/Vol] 1.88 mg/dL High 0.10-0.30 [facility] Comment on above: Performed By: #### H EMO DNA #### [facility] [address] [place], [place] Protein [Mass/Vol] 7.0 g/dL Normal 6.2-8.3 [facility] Comment on above: Performed By: #### H EMO DNA #### [facility] [address] [facility] [place], [place] Albumin [Mass/Vol] 2.9 g/dL Low 3.4 - 5.1 g/dL [facility] ALP [Catalytic activity/Vol] 386 U/L High [facility] ALT [Catalytic activity/Vol] 36 U/L [facility] AST [Catalytic activity/Vol] 68 U/L High [facility] Bilirubin [Mass/Vol] 6.9 mg/dL High 0.1 - 1.5 mg/dL [facility] Bilirubin.direct [Mass/Vol] 1.88 mg/dL High 0.10 - 0.30 mg/dL [facility] Protein [Mass/Vol] 7.0 g/dL 6.2 - 8.3 g/dL [facility] LDHon 11-13-2022 LD 255 IU/L High 50-220 [facility] Comment on above: Performed By: #### H EMO DNA #### [facility] Pathology [address] [place] [address] [place], [place] LDH [Catalytic activity/Vol] 255 U/L High [facility] No Panel Informationon 11-13 Interpretation and review of laboratory results Abnormal [employer] Interpretation and review of laboratory results Abnormal [employer] PROTHROMBIN TIME AND INRon 0 11-13-2022 INR Coag (PPP) [Relative time] 1.71 {INR} High 0.90-1.10 [facility] Comment on above: Performed By: #### P T #### S PATHOLOGY LABORATORY [address] [place] [address], PT Coag (PPP) [Time] 19.2 s High 9.7-12.9 [facility] Comment on above: Performed By: #### P T #### S PATHOLOGY LABORATORY [address] [place] [address], INR Coag (PPP) [Relative time] 1.71 {INR} High 0.90 - 1.10 [facility] Interpretation and review of laboratory results Abnormal [facility] PT Coag (PPP) [Time] 19.2 s High [facility] Progress Noteson 11-13-2022 [employer] Leader Authentication Interface Message Text Will Anderson presents for oncology nurse visit Patient was identified by name and date of . Patient at risk for falls: No Falls Risk protocol implemented: No Has the patient started any medications, over the counter medications or herbal medications? No Blood drawn from Peripheral venipuncture LAC Complications: None. Marlin Polanco RN Normal [facility] [employer] Authentication Interface Message Text Hematology AND Oncology [...] and headaches. Endo/Heme/Allergies: Does not bruise/bleed easily. Psychiatric/Behaviora l: Negative for depression, substance abuse and suicidal ideas. The patient is not nervous/anxious and does not have insomnia. 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 10 Tablet 0 sulfamethoxazole-trim ethoprim 800-160 MG (Bactrim DS) 800-160 MG per [...] Co (more content not included)... Normal [facility] [employer] Authentication Interface Message Text .Patient was identified by name and date of . Jojo Garcia .Patient at risk for falls:No Falls Risk protocol implemented: No Normal [facility] RETICULOCYTE COUNTon 023 IMMATURE RETICULOCYTE FRACTION 0.45 Normal 0.30-0.50 [facility] Comment on above: Performed By: #### A RETIC, CBCDSAT #### [facility] PATHOLOGY LABORATORY [address] [place] [address], RETIC # 0.09 M/uL High 0.03-0.08 [facility] Comment on above: Performed By: #### A RETIC, CBCDSAT #### S PATHOLOGY LABORATORY [address] [place] [address], RETIC % 3.3 % High 0.5-1.5 [facility] Comment on above: Performed By: #### A RETIC, CBCDSAT #### S PATHOLOGY LABORATORY [address] [place] [address], Immature reticulocytes/Total reticulocytes (Bld) 0.45 % 0.30 - 0.50 [facility] Reticulocytes (Bld) [#/Vol] 0.09 10*3/uL High [facility] Reticulocytes/100 RBC (Bld) 3.3 % High 0.5 - 1.5 % [facility] Progress Noteson 10-27-2022 [employer] Leader Authentication Interface Message Text Department of Gastroenterology [...] t (more content not included)... Normal [facility] [employer] Leader Authentication Interface Message Text Patient was identified by name and date of . Eze SchillingPatient at risk for falls:No Falls Risk protocol implemented: No Normal [facility] SMOOTH MUSC ATB SCRN & TITRO rdered By: Juan Luis Ferguson on 08-26-2022 Interpretation and review of laboratory results Normal [facility] Work Phone: Smooth muscle Ab Ql (S) Negative Negative [facility] Work Phone: Negative SMA test does not exclude the possibility of chronic liver disease. . I certify that I personally conducted the diagnostic evaluation of the above specimen(s) and have rendered the final diagnosis(es). [facility] Work Phone: [facility] Work Phone: Basic metabolic 2000 panelon 08-25-2022 Anion gap [Moles/Vol] 14 mmol/L 10 - 20 [facility] Calcium [Mass/Vol] 8.4 mg/dL 8.4 - 10.4 mg/dL [facility] Chloride [Moles/Vol] 101 mmol/L 97 - 111 mmol/L [facility] CO2 [Moles/Vol] 26 mmol/L 21 - 30 mmol/L [facility] Creatinine [Mass/Vol] 0.55 mg/dL Low 0.80 - 1.30 mg/dL [facility] GFR/1.73 sq M.predicted MDRD (S/P/Bld) [Vol [...] Inclusion of Race in Diagnosing Kidney Disease. [place] Journal of Kidney Diseases 202;79(2):268-88.e1. 2. N Engl J Med 2020 Vol. 385 Issue 19 Pages 0396-1709 Glucose [Mass/Vol] 55 mg/dL Low 68 - 110 mg/dL [facility] Potassium [Moles/Vol] 3.3 mmol/L 3.3 - 5.3 mmol/L [facility] Sodium [Moles/Vol] 138 mmol/L 135 - [...] (RBC) [Mass/Vol] 34.5 g/dL 32.0 - 35.9 g/dL [facility] MCV (RBC) [Entitic vol] 108 fL [...] 5.7 10*3/uL 4.5 - 11.5 K/uL [facility] - Chemistry and C hemistry - challengeon 08-25-2022 Ferritin [Mass/Vol] 346.0 ng/mL High 11.5 - 3 00.0 ng/mL [facility] Albumin [Mass/Vol] 3.0 g/dL Low 3.4 - 5.1 g/dL [facility] ALP [Catalytic activity/Vol] 389 U/L High [facility] ALT [Catalytic activity/Vol] 56 U/L High [facility] AST [Catalytic activity/Vol] 103 U/L High [facility] Bilirubin [Mass/Vol] 7.7 mg/dL High 0.1 - 1.5 mg/dL [facility] Bilirubin.direct [Mass/Vol] 2.20 mg/dL High 0.10 - 0.30 mg/dL [facility] Iron [Mass/Vol] 237 ug/dL High 45 - 160 ug/dL [facility] Iron binding capacity [Mass/Vol] 248 ug/mL Low 250 - 410 ug/mL [facility] Iron saturation [Mass fraction] 96 % High 20 - 55 % [facility] Protein [Mass/Vol] 7.2 g/dL 6.2 - 8.3 g/dL [facility] Transferrin [Mass/Vol] 177 mg/dL Low 210 - 375 mg/dL [facility] Laboratory - Serology - non- microon 08-25-2022 Immune complex.IgG [Mass/Vol] 1995 mg/dL High 768 - 1632 mg/dL [facility] No Panel Informationon 08-25 Interpretation and review of laboratory results Abnormal [facility] Interpretation and review of laboratory results Abnormal [employer] Interpretation and review of laboratory results Abnormal [employer] XR Knee - right Viewson EXAMINATION: XR [...] gait ASSOCIATED DIAGNOSIS: ORDERING PROVIDER: DANTE MARCELINO TECHNYADIRA NOTE: COMPARISON: None FINDINGS: No acute fracture [...] the calcaneus anteriorly. Right knee MACRO: None [facility] Rad[facility] Study observation (narrative) [facility] XR Knee - right ViewsOrdered By: Colby Mcintosh on 08-15-2022 [facility] Work Phone: Basic metabolic 2000 panelon 08-14-2022 Anion gap [Moles/Vol] 14 mmol/L 10 - 20 [facility] Calcium [Mass/Vol] 7.9 mg/dL Low 8.4 - 10.4 mg/dL [facility] Chloride [Moles/Vol] 97 mmol/L 97 - 111 mmol/L [facility] CO2 [Moles/Vol] 24 mmol/L 21 - 30 mmol/L [facility] Creatinine [Mass/Vol] 0.55 mg/dL Low 0.80 - 1.30 mg/dL [facility] GFR/1.73 sq M.predicted MDRD (S/P/Bld) [Vol rate/Area] 131 mL/min/{1.73_m2} - PINF [facility] Comment on above: 2020 CKD EPI [...] Inclusion of Race in Diagnosing Kidney Disease. [place] Journal of Kidney Diseases 202;79(2):268-88.e1. 2. N Engl J Med 2020 Vol. 385 Issue 19 Pages 8335-9977 Glucose [Mass/Vol] 89 mg/dL 68 - 110 mg/dL [facility] Potassium [Moles/Vol] 3.0 mmol/L Low 3.3 - 5.3 mmol/L [facility] Sodium [Moles/Vol] 132 mmol/L Low 135 - 148 mmol/L [facility] Urea nitrogen [Mass/Vol] 5 mg/dL Low 8 - 22 mg/dL [facility] - Chemistry and C hemistry - challengeon 08-14-2022 Urate [Mass/Vol] 1.9 mg/dL Low 2.0 - 7.3 mg/dL [facility] Albumin [Mass/Vol] 2.9 g/dL Low 3.4 - 5.1 g/dL [facility] ALP [Catalytic activity/Vol] 245 U/L High [...] [Mass/Vol] 6.4 g/dL 6.2 - 8.3 g/dL [facility] Creatinine (U) [Mass/Vol] 57 mg/dL 10 - 300 mg/dL [facility] Protein/Creatinine (U) [Mass ratio] 123 mg/g NINF - 164 mg/g [facility] Bilirubin Ql (U) Positive Abnormal Negative [facility] Ket[facility] Ql (U) Negative Negative mg/dL [facility] pH (U) 7.0 [pH] 5.0 - 8.0 [facility] Specific gravity (U) [Rel density] Low 1.005 - 1.030 [facility] Urobilinogen Qn (U) >=8.0 Abnormal 0.2 - 1.0 mg/dL [facility] - Hematology and Cell countson [...] mg/dL [facility] Hemoglobin Ql (U) Negative Negative [facility] - Hematology and Cell countsOrdered [...] [Mass/Vol] 36.5 g/dL High 32.0 - 35.9 g/dL [facility] MCV (RBC) [Entitic vol] 105 fL High 80 - 100 fL [facility] Monocyte distribution width Auto (Bld) [Entitic vol] [facility] Nucleated RBC (Bld) [#/Vol] 0.01 10*3/uL [facility] Platelet mean volume (Bld) [Entitic vol] 8.4 fL 7.5 - 11.2 fL [facility] Platelets (Bld) [#/Vol] 100 10*3/uL Low 150 - 400 K/uL [facility] RBC (Bld) [#/Vol] 3.03 10*6/uL Low [facility] WBC (Bld) [#/Vol] 9.2 10*3/uL 4.5 - 11.5 K/uL [facility] - Specimen inform ationon 08-14-2022 Appearance (U) Clear Clear [facility] Color (U) Light Yellow Yellow [facility] Laboratory - Urinalysison Protein (U) [Mass/Vol] 7 mg/dL NINF - 100 mg/dL [facility] Bacteria LM.HPF (Urine sed) [#/Area] Few /HPF [facility] Glucose Auto test strip (U) [Mass/Vol] Negative Negative mg/dL [facility] Leukocyte esterase Test strip Ql (U) Moderate Abnormal Negative Svitlana/uL [facility] Nitrite Ql (U) Negative Negative [facility] ([facility] [Mass/Vol] Negative Negative mg/dL [facility] WBC (U) [#/Vol] 0-2 [facility] WBC LM.HPF (Urine sed) [#/Area] 6-10 Abnormal [facility] No Panel InformationOrdered By: Tayla Strickland on 08-14-2022 Interpretation and review of laboratory results Abnormal [employer] No Panel Informationon 08-14 Interpretation and review of laboratory results Abnormal [employer] Interpretation and review of laboratory results Abnormal [employer] Interpretation and review of laboratory results Normal [employer] Interpretation and review of laboratory results Abnormal [facility] A negative leukocyte esterase AND negative nitrite [...] (positive predictive value for UTI around 50%) [employer] US.doppler Lower extremity v ein - righton [...] extremity deep venous thrombosis identified. MACRO: None [facility] Radiology Study observation (narrative) [facility] US.doppler Lower extremity v ein - rightOrdered By: Enrique Basurto on 08-14-2022 [facility] Work Phone: Basic metabolic 2000 panelon 05-06-2022 Anion gap [Moles/Vol] 11 mmol/L 10 - 20 [facility] Calcium [Mass/Vol] 8.9 mg/dL 8.4 - 10.4 mg/dL [facility] Chloride [Moles/Vol] 105 mmol/L 97 - 111 mmol/L [facility] CO2 [Moles/Vol] 25 mmol/L 21 - 30 mmol/L [facility] Creatinine [Mass/Vol] 0.58 mg/dL Low 0.8 - 1.3 mg/dL [facility] Comment on above: Grossly icteric; may falsely decrease creatinine GFR/1.73 sq M.predicted MDRD (S/P/Bld) [Vol rate/Area] 129 mL/min/{1.73_m2} - PINF [facility] Comment on above: 2020 CKD EPI Equatio [...] Inclusion of Race in Diagnosing Kidney Disease. [place] Journal of Kidney Diseases 202;79(2):268-88.e1. 2. N Engl J Med 2020 Vol. 385 Issue 19 Pages 4216-8988 Glucose [Mass/Vol] 79 mg/dL 68 - 110 mg/dL [facility] Interpretation and review of laboratory results Abnormal [facility] Potassium [Moles/Vol] 3.6 mmol/L 3.3 - 5.3 mmol/L [facility] Sodium [Moles/Vol] 137 mmol/L 135 - [...] 11.5 g/dL Low 13.9 - 16.3 g/dL [facility] [...] vol] 7.9 fL 7.5 - 11.2 fL [facility] Platelets (Bld) [#/Vol] 90 10*3/uL Low 150 - 400 K/uL [facility] RBC (Bld) [#/Vol] 3.21 10*6/uL Low [facility] WBC (Bld) [#/Vol] 4.2 10*3/uL Low 4.5 - 11.5 K/uL [facility] HAPTOGLOBINon 05-06-2022 Haptoglobin [Mass/Vol] mg/dL Low 36 - 220 mg/dL [facility] Interpretation and review of laboratory results Abnormal [employer] HEPATIC FUNCTION PANELon Albumin [Mass/Vol] 3.0 g/dL Low 3.4 - 5.1 g/dL [facility] ALP [Catalytic activity/Vol] 373 U/L High [facility] ALT [Catalytic activity/Vol] 47 U/L High [facility] AST [Catalytic activity/Vol] 87 U/L High [facility] Bilirubin [Mass/Vol] 8.3 mg/dL High 0.1 - 1.5 mg/dL [facility] Bilirubin.direct [Mass/Vol] 1.50 mg/dL High 0.1 - 0.3 mg/dL [facility] Protein [Mass/Vol] 6.7 g/dL 6.2 - 8.3 g/dL [facility] LDHon 05-06-2022 LDH [Catalytic activity/Vol] 270 U/L High [facility] No Panel Informationon 05-06 Interpretation and review of laboratory results Abnormal [employer] URIC ACIDon 05-06-2022 Interpretation and review of laboratory results Normal [facility] Urate [Mass/Vol] 3.2 mg/dL 2 - 7.3 mg/dL [facility] Basic metabolic 2000 panelon 03-13-2022 Anion gap [Moles/Vol] 11 mmol/L [facility] Calcium [Mass/Vol] 8.2 mg/dL Low 8.4 - 10.4 mg/dL [facility] Chloride [Moles/Vol] 103 mmol/L 97 - 111 mmol/L [facility] CO2 [Moles/Vol] 25 mmol/L 21 - 30 mmol/L [facility] Creatinine [Mass/Vol] 0.51 mg/dL Low 0.80 - 1.30 mg/dL [facility] Comment on above: Grossly icteric; may falsely decrease creatinine GFR/1.73 sq M.predicted MDRD (S/P/Bld) [Vol rate/Area] 134 mL/min/{1.73_m2} >=60 mL/min/1.73sqm [facility] Comment on above: 2020 CKD EPI [...] Inclusion of Race in Diagnosing Kidney Disease. [place] Journal of Kidney Diseases 202;79(2):268-88.e1. 2. N Engl J Med 2020 Vol. 385 Issue 19 Pages 4828-0580 Glucose [Mass/Vol] 119 mg/dL High 68 - 110 mg/dL [facility] Interpretation and review of laboratory results Abnormal [facility] Potassium [Moles/Vol] 3.6 mmol/L 3.3 - 5.3 mmol/L [facility] Sodium [Moles/Vol] 135 mmol/L 135 - 148 mmol/L [facility] Urea nitrogen [Mass/Vol] 3 mg/dL Low 8 - 22 mg/dL [facility] CBC WITH DIFFERENTIALon 07-0 Basophils (Bld) [#/Vol] 0.03 10*3/uL 0.00 - [...] (RBC) [Mass/Vol] 35.0 g/dL 32.0 - 35.9 g/dL [facility] MCV (RBC) [Entitic [...] 114 10*3/uL Low 150 - 400 K/uL [facility] RBC (Bld) [#/Vol] 2.81 10*6/uL Low [facility] WBC (Bld) [#/Vol] 4.0 10*3/uL Low 4.5 - 11.5 K/uL [facility] Laboratory - Chemistry and C hemistry - challengeon 03-13-2022 Albumin [Mass/Vol] 2.6 g/dL Low 3.4 - 5.1 g/dL [facility] ALP [Catalytic activity/Vol] 278 U/L High [facility] ALT [Catalytic activity/Vol] 33 U/L [facility] AST [Catalytic activity/Vol] 68 U/L High [facility] Bilirubin [Mass/Vol] 5.6 mg/dL High 0.1 - 1.5 mg/dL [facility] Bilirubin.direct [Mass/Vol] 1.20 mg/dL High 0.10 - 0.30 mg/dL [facility] LDH [Catalytic activity/Vol] 258 U/L High [facility] Protein [Mass/Vol] 6.2 g/dL 6.2 - 8.3 g/dL [facility] Urate [Mass/Vol] 3.0 mg/dL 2.0 - 7.3 mg/dL [facility] Laboratory - Hematology and Cell countson 03-13-2022 Haptoglobin [Mass/Vol] mg/dL Low 36 - 220 mg/dL [facility] No Panel Informationon 03-13 Interpretation and review of laboratory results Abnormal [employer] Interpretation and review of laboratory results Abnormal [facility] Interpretation and review of laboratory results Normal [employer] CHEMISTRYOrdered By: SYSTEM SYSTEM on 02-17-2022 Lactate [Mass/Vol] 1.8 mmol/L Normal 0.5 - 2.2 mmol/L [facility] Albumin [Mass/Vol] 2.8 g/dL Low 3.3 - 5.0 gm/dL [facility] Albumin/Globulin [Mass ratio] 0.7 {ratio} Low 1.1 - 2.2 [facility] ALP [Catalytic activity/Vol] 265 [iU]/d High 21 - 98 Int._Unit/L [facility] Remisol ALT No additional P-5'-P [Catalytic activity/Vol] 60 [iU]/d High 6 - 46 Int._Unit/L [facility] Remisol Anion gap [Moles/Vol] 12 mmol/L Normal 6 - 16 mEq/L [facility] Remisol AST [Catalytic activity/Vol] 93 [iU]/d High [...] mmol/L Normal 101 - 111 mmol/ L [facility] CO2 [Moles/Vol] 22 mmol/L Normal 21 - 31 mmol/L [facility] Creatinine [Mass/Vol] 0.5 mg/dL Normal 0.5 - 1.3 mg/dL [facility] GFR/1.73 sq M.predicted among blacks MDRD (S/P/Bld) [Vol rate/Area] mL/min/1.73 m2 Normal >=59mL/min/1.73 m2 [facility] Chem S GFR/1.73 sq M.predicted among non-blacks MDRD (S/P/Bld) [Vol rate/Area] mL/min/1.73 m2 Normal >=59mL/min/1.73 m2 [facility] Chem S Globulin (S) [Mass/Vol] 3.9 g/dL Normal 1.4 - 4.0 gm/dL [facility] Glucose [Mass/Vol] 123 mg/dL Normal 55 - 199 mg/dL [facility] Remisol Lipase [Catalytic activity/Vol] 68 U/L High 13 - 58 unit/L [facility] Potassium [Moles/Vol] 3.2 mmol/L Low 3.5 - 5.3 mmol/L [facility] Protein [Mass/Vol] 6.7 g/dL Normal 6.0 - 7.8 gm/dL [facility] [facility] Sodium [Moles/Vol] 133 mmol/L Low 135 - 145 mmol/L [facility] Urea nitrogen [Mass/Vol] 6 mg/dL Normal 5 - 21 mg/dL [facility] Urea nitrogen/Creatinine [Mass ratio] 12 mg/mg Normal 10 - 20 [facility] CHEMISTRYOrdered By: Trista Root on 02-17-2022 Natriuretic peptide B (Bld) [Mass/Vol] 142 pg/mL High 5 - 80 pg/mL [facility] HemeManSS HEMATOLOGYOrdered By: SYSTEM SYSTEM on 02-17-2022 Basophils/100 WBC (Bld) 0.9 % Normal 0.0 - 2.0 % [facility] Basophils/Leukocytes Auto (Bld) [Pure # fraction] 0.0 E9/L Normal 0.0 - 0.2 E9/L [facility] Eosinophils/100 WBC (Bld) 2.9 % Normal 0.0 - 8.0 % [facility]eAutoSS Eosinophils/Leukocyt es Auto (Bld) [Pure # fraction] 0.1 E9/L Normal 0.0 - 0.5 E9/L [facility]eAuto[facility] Lymphocytes/100 WBC (Bld) 30.1 % Normal 14.0 - 50.0 % [facility]eAutoSS Lymphocytes/Leukocyt es Auto (Bld) [Pure # fraction] 1.5 E9/L Normal 1.0 - 4.0 E9/L [facility]eAutoSS Monocytes/100 WBC (Bld) 12.8 % Normal 4.0 - 14.0 % [facility]eAuto[facility] Monocytes/Leukocytes Auto (Bld) [Pure # fraction] 0.6 E9/L Normal 0.2 - 1.0 E9/L [facility] Neutrophils/100 WBC (Bld) 53.3 % Normal 36.0 - 75.0 % [facility] Neutrophils/Leukocyt es Auto (Bld) [Pure # fraction] 2.6 E9/L Normal 2.0 - 7.5 E9/L [facility] HEMATOLOGYOrdered By: Angie Childers on 02-17-2022 Erythrocyte distribution width (RBC) [Ratio] 17.1 % High 10.9 - 14.2 % [facility] Hematocrit (Bld) [Volume fraction] 29.1 % Low 37.7 - 49.0 % [facility] Hemoglobin (Bld) [Mass/Vol] 10.4 g/dL Low 13.5 - 17.5 gm/dL [facility] MCH (RBC) [Entitic mass] 37.8 pg High 27.0 - 34.0 pg [facility] MCHC (RBC) [Mass/Vol] 35.7 g/dL Normal 31.4 - 36.0 gm/dL [facility] MCV (RBC) [Entitic vol] 105.8 [...] 4.9 E9/L Normal 4.0 - 11.0 E9/L [facility] URINALYSISOrdered By: Heladio Barnett on 02-17-2022 [...] PM) Normal Negative [facility] UA Auto SS [place].plasma/Lith[place] um.RBC (Bld) [Mass ratio] 0-3 /HPF Normal [...] Desc Clean Catch (02/17/22 1:14 PM) Normal [facility] UA Auto SS Urobilinogen Qn (U) [id number] {Alexey'U}/dL Normal 0.0 - 1.0 EU/dL [facility] UA Auto SS WBC Auto Ql (U) Negative (02/17/22 1:14 PM) Normal Negative [facility] UA Auto SS WBC LM.HPF (Urine sed) [#/Area] 0-5 /HPF Normal 0-5/HPF [facility] UA Auto SS Basic metabolic 2000 panelon 02-11-2022 Anion gap [Moles/Vol] 10 mmol/L [facility] Calcium [Mass/Vol] 8.2 mg/dL Low 8.4 - 10.4 mg/dL [facility] Chloride [Moles/Vol] 103 mmol/L 97 - 111 mmol/L [facility] CO2 [Moles/Vol] 24 mmol/L 21 - 30 mmol/L [facility] Creatinine [Mass/Vol] 0.49 mg/dL Low 0.80 - 1.30 mg/dL [facility] Comment on above: Grossly icteric; may falsely decrease creatinine GFR/1.73 sq M.predicted MDRD (S/P/Bld) [Vol rate/Area] 136 mL/min/{1.73_m2} >=60 mL/min/1.73sqm [facility] Comment on above: 2020 CKD EPI Equatio [...] Inclusion of Race in Diagnosing Kidney Disease. [place] Journal of Kidney Diseases 202;79(2):268-88.e1. 2. N Engl J Med 2021 Vol. 385 Issue 19 Pages 5916-2385 Glucose [Mass/Vol] 105 mg/dL 68 - 110 mg/dL [facility] Interpretation and review of laboratory results Abnormal [facility] Potassium [Moles/Vol] 3.3 mmol/L 3.3 - 5.3 mmol/L [facility] Sodium [Moles/Vol] 134 mmol/L Low 135 - 148 mmol/L [facility] Urea nitrogen [Mass/Vol] 7 mg/dL Low 8 - 22 mg/dL [facility] CBC WITH DIFFERENTIALOrdered By: Ami Brock [...] (RBC) [Mass/Vol] 34.5 g/dL 32.0 - 35.9 g/dL [facility] MCV (RBC) [Entitic vol] 108 fL High 80 - 100 fL [facility] Monocyte distribution width Auto (Bld) [Entitic vol] [facility] Platelet mean volume (Bld) [Entitic vol] 7.2 fL Low 7.5 - 11.2 fL [facility] Platelets (Bld) [#/Vol] 81 10*3/uL Low 150 - 400 K/uL [facility] RBC (Bld) [#/Vol] 2.69 10*6/uL Low [facility] WBC (Bld) [#/Vol] 4.9 10*3/uL 4.5 - 11.5 K/uL [facility] HAPTOGLOBINon 02-11-2022 Haptoglobin [Mass/Vol] mg/dL Low 36 - 220 mg/dL [facility] Interpretation and review of laboratory results Abnormal [facility] LDHon 02-11-2022 LDH [Catalytic activity/Vol] 321 U/L High [facility] Laboratory - Chemistry and C hemistry - challengeon 02-11-2022 Albumin [Mass/Vol] 2.8 g/dL Low 3.4 - 5.1 g/dL [facility] ALP [Catalytic activity/Vol] 226 U/L High [facility] ALT [Catalytic activity/Vol] 77 U/L High [facility] AST [Catalytic activity/Vol] 88 U/L High [facility] Bilirubin [Mass/Vol] 7.7 mg/dL High 0.1 - 1.5 mg/dL [facility] Bilirubin.direct [Mass/Vol] 1.70 mg/dL High 0.10 - 0.30 mg/dL [facility] Protein [Mass/Vol] 6.2 g/dL 6.2 - 8.3 g/dL [facility] MANUAL DIFF AND MORPHon 06-0 Anisocytosis Ql (Bld) Slight [facility] Band form neutrophils/100 WBC (Bld) 5 % <=10 [facility] Bands # 0.25 K/uL High <0.01 [facility] Cells Counted Total (Bld) [#] 100 {cells} [facility] Eosinophils (Bld) [#/Vol] 0.15 10*3/uL 0.00 - 0.70 K/uL [facility] Eosinophils/100 WBC (Bld) 3.0 % [...] Interpretation and review of laboratory results Abnormal [facility] No Panel Informationon 02-11 Interpretation and review of laboratory results Abnormal [facility] RETICULOCYTE COUNTOrdered By : Kennedi Fuentes on 02-11-2022 Immature reticulocytes/Total reticulocytes (Bld) 0.45 % [facility] Interpretation and review of laboratory results Abnormal [facility] Reticulocytes (Bld) [#/Vol] 0.08 10*3/uL [facility] Reticulocytes/100 RBC (Bld) 3.0 % High 0.5 - 1.5 % [facility] Basic metabolic 2000 panelon 01-17-2022 Anion gap [Moles/Vol] 13 mmol/L [facility] Calcium [Mass/Vol] 8.2 mg/dL Low 8.4 - 10.4 mg/dL [facility] Chloride [Moles/Vol] 99 mmol/L 97 - 111 mmol/L [facility] CO2 [Moles/Vol] 23 mmol/L 21 - 30 mmol/L [facility] Creatinine [Mass/Vol] 0.42 mg/dL Low 0.80 - 1.30 mg/dL [facility] GFR/1.73 sq M.predicted MDRD (S/P/Bld) [Vol rate/Area] 142 mL/min/{1.73_m2} >=60 mL/min/1.73sqm [facility] Glucose [Mass/Vol] 84 mg/dL 68 - 110 mg/dL [facility] Potassium [Moles/Vol] 3.8 mmol/L 3.3 - 5.3 mmol/L [facility] Sodium [Moles/Vol] 131 mmol/L Low 135 - 148 mmol/L [facility] Urea nitrogen [Mass/Vol] 8 mg/dL 8 - 22 mg/dL [facility] CBC panel Auto (Bld)Ordered By: Isak Mitchell on 01-17-2022 Erythrocyte distribution width (RBC) [Ratio] 23.6 % High 11.5 - 14.5 % [facility] Hematocrit (Bld) [Volume fraction] 23.3 % Low 41.0 - 53.0 % [facility] Hemoglobin (Bld) [Mass/Vol] 8.0 g/dL Low 13.9 - 16.3 g/dL [facility] Interpretation and review of laboratory results Abnormal [facility] MCH (RBC) [Entitic mass] 38.1 pg High 26.0 - 34.0 pg [facility] MCHC (RBC) [Mass/Vol] 34.2 g/dL 32.0 - 35.9 g/dL [facility] MCV (RBC) [Entitic vol] 111 fL High 80 - 100 fL [facility] Platelet mean volume (Bld) [Entitic vol] 9.2 fL 7.5 - 11.2 [facility]L [facility] Platelets (Bld) [#/Vol] 96 10*3/uL Low 150 - 400 K/uL [facility] RBC (Bld) [#/Vol] 2.09 10*6/uL Low [facility] WBC (Bld) [#/Vol] 9.5 10*3/uL 4.5 - 11.5 K/uL M [facility] GLUCOSE, FINGERSTICK-IN OFFI CEon 01-17-2022 Glucose [Mass/Vol] 188 mg/dL High 68 - 110 mg/dL [facility] Interpretation and review of laboratory results Abnormal [employer] HAPTOGLOBINon 01-17-2022 Haptoglobin [Mass/Vol] mg/dL Low 36 - 220 mg/dL [facility] Interpretation and review of laboratory results Abnormal [employer] HEPATIC FUNCTION PANELon Albumin [Mass/Vol] 2.8 g/dL Low 3.4 - 5.1 g/dL [facility] ALP [Catalytic activity/Vol] 133 U/L [facility] ALT [Catalytic activity/Vol] 75 U/L High [facility] AST [Catalytic activity/Vol] 94 U/L High [facility] Bilirubin [Mass/Vol] 12.6 mg/dL High 0.1 - 1.5 mg/dL [facility] Bilirubin.direct [Mass/Vol] 2.40 mg/dL High 0.10 - 0.30 mg/dL [facility] Protein [Mass/Vol] 6.7 g/dL 6.2 - 8.3 g/dL [facility] LDHon 01-17-2022 LDH [Catalytic activity/Vol] 514 U/L High [facility] No Panel Informationon 01-17 Interpretation and review of laboratory results Abnormal [employer] PROTHROMBIN TIME AND INRon 0 01-17-2022 INR Coag (PPP) [Relative time] 1.97 {INR} High [facility] Interpretation and review of laboratory results Abnormal [facility] PT Coag (PPP) [Time] 22.1 s High [facility] RETICULOCYTE COUNTon 022 Immature reticulocytes/Total reticulocytes (Bld) 0.61 % [facility] Interpretation and review of laboratory results Abnormal [facility] Reticulocytes (Bld) [#/Vol] 0.14 10*3/uL High [facility] Reticulocytes/100 RBC (Bld) 6.5 % High 0.5 - 1.5 % [facility] Basic metabolic 2000 panelon 01-16-2022 Anion gap [Moles/Vol] 14 mmol/L [facility] Calcium [Mass/Vol] 8.3 mg/dL Low 8.4 - 10.4 mg/dL [facility] Chloride [Moles/Vol] 98 mmol/L 97 - 111 mmol/L [facility] CO2 [Moles/Vol] 24 mmol/L 21 - 30 mmol/L [facility] Creatinine [Mass/Vol] 0.42 mg/dL Low 0.80 - 1.30 mg/dL [facility] GFR/1.73 sq M.predicted MDRD (S/P/Bld) [Vol rate/Area] 142 mL/min/{1.73_m2} >=60 mL/min/1.73sqm [facility] Glucose [Mass/Vol] 102 mg/dL 68 - 110 mg/dL [facility] Potassium [Moles/Vol] 3.7 mmol/L 3.3 - 5.3 mmol/L [facility] Sodium [Moles/Vol] 132 mmol/L Low 135 - 148 mmol/L [facility] Urea nitrogen [Mass/Vol] 9 mg/dL 8 - 22 mg/dL [facility] CBC panel Auto (Bld)on 01-16 Erythrocyte distribution width (RBC) [Ratio] 23.7 % High 11.5 - 14.5 % [facility] Hematocrit (Bld) [Volume fraction] 21.6 % Low 41.0 - 53.0 % [facility] Hemoglobin (Bld) [Mass/Vol] 7.4 g/dL Low 13.9 - 16.3 g/dL [facility] Interpretation and review of laboratory results Abnormal [facility] MCH (RBC) [Entitic mass] 38.6 pg High 26.0 - 34.0 pg [facility] MCHC (RBC) [Mass/Vol] 34.4 g/dL 32.0 - 35.9 g/dL [facility] MCV (RBC) [Entitic vol] 112 fL High 80 - 100 fL [facility] Platelet mean volume (Bld) [Entitic vol] 9.3 fL 7.5 - 11.2 fL [facility] Platelets (Bld) [#/Vol] 94 10*3/uL Low 150 - 400 K/uL [facility] RBC (Bld) [#/Vol] 1.92 10*6/uL Low [facility] WBC (Bld) [#/Vol] 9.2 10*3/uL 4.5 - 11.5 K/uL [facility], FINGERSTICK-IN OFFI CEon 01-16-2022 Glucose [Mass/Vol] 145 mg/dL High 68 - 110 mg/dL [facility] Interpretation and review of laboratory results Abnormal [employer] Glucose [Mass/Vol] 247 mg/dL High 68 - 110 mg/dL [facility] Interpretation and review of laboratory results Abnormal [employer] Glucose [Mass/Vol] 132 mg/dL High 68 - 110 mg/dL [facility] Interpretation and review of laboratory results Abnormal [employer] Glucose [Mass/Vol] 90 mg/dL 68 - 110 mg/dL [facility] Interpretation and review of laboratory results Normal [employer] HAPTOGLOBINon 01-16-2022 Haptoglobin [Mass/Vol] mg/dL Low 36 - 220 mg/dL [facility] Interpretation and review of laboratory results Abnormal [employer] HEPATIC FUNCTION PANELon Albumin [Mass/Vol] 2.7 g/dL Low 3.4 - 5.1 g/dL [facility] ALP [Catalytic activity/Vol] 124 U/L [facility] ALT [Catalytic activity/Vol] 69 U/L High [facility] AST [Catalytic activity/Vol] 93 U/L High [facility] Bilirubin [Mass/Vol] 12.7 mg/dL High 0.1 - 1.5 mg/dL [facility] Bilirubin.direct [Mass/Vol] 2.30 mg/dL High 0.10 - 0.30 mg/dL [facility] Protein [Mass/Vol] 6.3 g/dL 6.2 - 8.3 g/dL [facility] LDHon 01-16-2022 LDH [Catalytic activity/Vol] 476 U/L High [facility] No Panel Informationon 01-16 Interpretation and review of laboratory results Abnormal [facility] PROTHROMBIN TIME AND INRon 0 01-16-2022 INR Coag (PPP) [Relative time] 2.08 {INR} High [facility] Interpretation and review of laboratory results Abnormal [facility] PT Coag (PPP) [Time] 23.3 s High [facility] Basic metabolic 2000 panelon 01-15-2022 Anion gap [Moles/Vol] 14 mmol/L [facility] Calcium [Mass/Vol] 7.9 mg/dL Low 8.4 - 10.4 mg/dL [facility] Chloride [Moles/Vol] 97 mmol/L 97 - 111 mmol/L [facility] CO2 [Moles/Vol] 25 mmol/L 21 - 30 mmol/L [facility] Creatinine [Mass/Vol] 0.42 mg/dL Low 0.80 - 1.30 mg/dL [facility] GFR/1.73 sq M.predicted MDRD (S/P/Bld) [Vol rate/Area] 142 mL/min/{1.73_m2} >=60 mL/min/1.73sqm [facility] Glucose [Mass/Vol] 112 mg/dL High 68 - 110 mg/dL [facility] Potassium [Moles/Vol] 3.5 mmol/L 3.3 - 5.3 mmol/L [facility] Sodium [Moles/Vol] 132 mmol/L Low 135 - 148 mmol/L [facility] Urea nitrogen [Mass/Vol] 8 mg/dL 8 - 22 mg/dL [facility] CBC panel Auto (Bld)on 01-15 Erythrocyte distribution width (RBC) [Ratio] 24.4 % High 11.5 - 14.5 % [facility] Hematocrit (Bld) [Volume fraction] 21.1 % Low 41.0 - 53.0 % [facility] Hemoglobin (Bld) [Mass/Vol] 7.3 g/dL Low 13.9 - 16.3 g/dL [facility] Interpretation and review of laboratory results Abnormal [facility] MCH (RBC) [Entitic mass] 38.7 pg High 26.0 - 34.0 pg [facility] MCHC (RBC) [Mass/Vol] 34.4 g/dL 32.0 - 35.9 g/dL [facility] MCV (RBC) [Entitic vol] 113 fL High 80 - 100 fL [facility] Platelet mean volume (Bld) [Entitic vol] 9.8 fL 7.5 - 11.2 fL [facility] Platelets (Bld) [#/Vol] 74 10*3/uL Low 150 - 400 K/uL [facility] RBC (Bld) [#/Vol] 1.88 10*6/uL Low [facility] WBC (Bld) [#/Vol] 8.9 10*3/uL 4.5 - 11.5 K/uL M [facility] GLUCOSE, FINGERSTICK-IN OFFI CEon 01-15-2022 Glucose [Mass/Vol] 149 mg/dL High 68 - 110 mg/dL [facility] Interpretation and review of laboratory results Abnormal [employer] Glucose [Mass/Vol] 175 mg/dL High 68 - 110 mg/dL [facility] Interpretation and review of laboratory results Abnormal [employer] Glucose [Mass/Vol] 129 mg/dL High 68 - 110 mg/dL [facility] Interpretation and review of laboratory results Abnormal [employer] Glucose [Mass/Vol] 148 mg/dL High 68 - 110 mg/dL [facility] Interpretation and review of laboratory results Abnormal [employer] HAPTOGLOBINon 01-15-2022 Haptoglobin [Mass/Vol] mg/dL Low 36 - 220 mg/dL [facility] Interpretation and review of laboratory results Abnormal [employer] HEPATIC FUNCTION PANELon Albumin [Mass/Vol] 2.6 g/dL Low 3.4 - 5.1 g/dL [facility] ALP [Catalytic activity/Vol] 182 U/L [facility] ALT [Catalytic activity/Vol] 65 U/L High [facility] AST [Catalytic activity/Vol] 104 U/L High [facility] Bilirubin [Mass/Vol] 10.8 mg/dL High 0.1 - 1.5 mg/dL [facility] Bilirubin.direct [Mass/Vol] 2.10 mg/dL High 0.10 - 0.30 mg/dL [facility] Protein [Mass/Vol] 6.5 g/dL 6.2 - 8.3 g/dL [facility] LDHon 01-15-2022 LDH [Catalytic activity/Vol] 481 U/L High [facility] No Panel Informationon 01-15 Interpretation and review of laboratory results Abnormal [facility] PROTHROMBIN TIME AND INRon 0 01-15-2022 INR Coag (PPP) [Relative time] 1.89 {INR} High [facility] Interpretation and review of laboratory results Abnormal [facility] PT Coag (PPP) [Time] 21.2 s High [facility] Basic metabolic 2000 panelon 01-14-2022 Anion gap [Moles/Vol] 11 mmol/L [facility] Calcium [Mass/Vol] 8.2 mg/dL Low 8.4 - 10.4 mg/dL [facility] Chloride [Moles/Vol] 101 mmol/L 97 - 111 mmol/L [facility] CO2 [Moles/Vol] 27 mmol/L 21 - 30 mmol/L [facility] Creatinine [Mass/Vol] 0.44 mg/dL Low 0.80 - 1.30 mg/dL [facility] GFR/1.73 sq M.predicted MDRD (S/P/Bld) [Vol rate/Area] 140 mL/min/{1.73_m2} >=60 mL/min/1.73sqm [facility] Glucose [Mass/Vol] 136 mg/dL High 68 - 110 mg/dL [facility] Potassium [Moles/Vol] 3.4 mmol/L 3.3 - 5.3 mmol/L [facility] Sodium [Moles/Vol] 136 mmol/L 135 - [...] (RBC) [Mass/Vol] 34.4 g/dL 32.0 - 35.9 g/dL [facility] MCV (RBC) [Entitic vol] 112 fL High 80 - 100 [facility]L [facility] Mon[facility] width Auto (Bld) [Entitic vol] [facility] Nucleated RBC (Bld) [#/Vol] 0.15 10*3/uL [facility] Nucleated RBC/100 WBC (Bld) [Ratio] 2.0 % [facility] Platelet mean volume (Bld) [Entitic vol] 9.4 fL 7.5 - 11.2 fL [facility] Platelets (Bld) [#/Vol] 65 10*3/uL Low 150 - 400 K[facility]L [facility] RBC (Bld) [#/Vol] 1.91 10*6/uL Low [facility] WBC (Bld) [#/Vol] 7.3 10*3/uL 4.5 - 11.5 K/uL [facility] FIBRINOGENOrdered By: Elvia Humphrey on 01-14-2022 Fibrin+Fibrinogen fragments (S) [Mass/Vol] 122 mg/dL Low 200 - 500 mg/dL [facility] Interpretation and review of laboratory results Abnormal [employer] GLUCOSE, FINGERSTICK-IN OFFI CEon 01-14-2022 Glucose [Mass/Vol] 139 mg/dL High 68 - 110 mg/dL [facility] Interpretation and review of laboratory results Abnormal [employer] Glucose [Mass/Vol] 203 mg/dL High 68 - 110 mg/dL [facility] Interpretation and review of laboratory results Abnormal [employer] Glucose [Mass/Vol] 143 mg/dL High 68 - 110 mg/dL [facility] Interpretation and review of laboratory results Abnormal [employer] Glucose [Mass/Vol] 154 mg/dL High 68 - 110 mg/dL [facility] Interpretation and review of laboratory results Abnormal [employer] HAPTOGLOBINon 01-14-2022 Haptoglobin [Mass/Vol] mg/dL Low 36 - 220 mg/dL [facility] Interpretation and review of laboratory results Abnormal [employer] HEPATIC FUNCTION PANELon Albumin [Mass/Vol] 2.6 g/dL Low 3.4 - 5.1 g/dL [facility] ALP [Catalytic activity/Vol] 177 U/L [facility] ALT [Catalytic activity/Vol] 62 U/L High [facility] AST [Catalytic activity/Vol] 104 U/L High [facility] Bilirubin [Mass/Vol] 11.5 mg/dL High 0.1 - 1.5 mg/dL [facility] Bilirubin.direct [Mass/Vol] 2.20 mg/dL High 0.10 - 0.30 mg/dL [facility] Protein [Mass/Vol] 6.4 g/dL 6.2 - 8.3 g/dL [facility] LDHon 01-14-2022 LDH [Catalytic activity/Vol] 473 U/L High [facility] Laboratory - Microbiology an d Antimicrobial susceptibilityon 01-14-2022 Bacteria identified Cx Nom (Bld) No Growth [facility] MANUAL DIFF AND MORPHon 01-05 Anisocytosis Ql (Bld) Marked [facility] Robles cells LM Ql (Bld) Few [...] PT Coag (PPP) [Time] 21.8 s High [facility] Basic metabolic 2000 panelon 01-13-2022 Anion gap [Moles/Vol] 10 mmol/L [facility] Calcium [Mass/Vol] 8.1 mg/dL Low 8.4 - 10.4 mg/dL [facility] Chloride [Moles/Vol] 99 mmol/L 97 - 111 mmol/L [facility] CO2 [Moles/Vol] 29 mmol/L 21 - 30 mmol/L [facility] Creatinine [Mass/Vol] 0.40 mg/dL Low 0.80 - 1.30 mg/dL [facility] GFR/1.73 sq M.predicted MDRD (S/P/Bld) [Vol rate/Area] 144 mL/min/{1.73_m2} >=60 mL/min/1.73sqm [facility] Glucose [Mass/Vol] 130 mg/dL High 68 - 110 mg/dL [facility] Potassium [Moles/Vol] 3.4 mmol/L 3.3 - 5.3 mmol/L [facility] Sodium [Moles/Vol] 135 mmol/L 135 - 148 mmol/L [facility] Urea nitrogen [Mass/Vol] 6 mg/dL Low 8 - 22 mg/dL [facility] CBC WITH DIFFERENTIALon Erythrocyte distribution width (RBC) [Ratio] 24.4 % High 11.5 - 14.5 % [facility] Hematocrit (Bld) [Volume fraction] 19.3 % Critically low 41.0 - 53.0 % [facility] Hemoglobin (Bld) [Mass/Vol] 6.7 g/dL Critically low 13.9 - 16.3 g/dL [facility] MCH (RBC) [Entitic mass] 38.1 pg High 26.0 - 34.0 pg [facility] MCHC (RBC) [Mass/Vol] 34.7 g/dL 32.0 - 35.9 g/dL [facility] MCV (RBC) [Entitic vol] 110 fL High 80 - 100 fL [facility] Monocyte distribution width Auto (Bld) [Entitic vol] [facility] Nucleated RBC (Bld) [#/Vol] 0.22 10*3/uL [facility] Nucleated RBC/100 WBC (Bld) [Ratio] 3.0 % [facility] Platelet mean volume (Bld) [Entitic vol] 8.9 fL 7.5 - 11.2 fL [facility] Platelets (Bld) [#/Vol] 67 10*3/uL Low 150 - 400 K/uL [facility] RBC (Bld) [#/Vol] 1.76 10*6/uL Low [facility] WBC (Bld) [#/Vol] 7.3 10*3/uL 4.5 - 11.5 K/uL [facility] COPPERon 01-13-2022 Copper [Mass/Vol] 63 Low [facility] Interpretation and review of laboratory results Abnormal [facility] FACTOR VIII ASSAYOrdered By: Jozef Gibbons on 01-13-2022 Factor VIII Assay 356 % High 55 - 180 % [facility] Interpretation and review of laboratory results Abnormal [employer] GLUCOSE, FINGERSTICK-IN OFFI CEon 01-13-2022 Glucose [Mass/Vol] 185 mg/dL High 68 - 110 mg/dL [facility] Glucose [Mass/Vol] 226 mg/dL High 68 - 110 mg/dL [facility] Glucose [Mass/Vol] 152 mg/dL High 68 - 110 mg/dL [facility] Interpretation and review of laboratory results Abnormal [employer] Glucose [Mass/Vol] 140 mg/dL High 68 - 110 mg/dL [facility] Interpretation and review of laboratory results Abnormal [employer] HAPTOGLOBINon 01-13-2022 Haptoglobin [Mass/Vol] mg/dL Low 36 - 220 mg/dL [facility] Interpretation and review of laboratory results Abnormal [facility] HEPATIC FUNCTION PANELon Albumin [Mass/Vol] 2.6 g/dL Low 3.4 - 5.1 g/dL [facility] ALP [Catalytic activity/Vol] 169 U/L [facility] ALT [Catalytic activity/Vol] 63 U/L High [facility] AST [Catalytic activity/Vol] 124 U/L High [facility] Bilirubin [Mass/Vol] 11.4 mg/dL High 0.1 - 1.5 mg/dL [facility] Bilirubin.direct [Mass/Vol] 2.10 mg/dL High 0.10 - 0.30 mg/dL [facility] Protein [Mass/Vol] 6.2 g/dL 6.2 - 8.3 g/dL [facility] HEPAT[facility]IS C QUANT BY PCROrde red By: Gera Meza on 01-13-2022 HCV RNA panel ANGIE+probe Not detected Not Detected [facility] LDHon 01-13-2022 LDH [Catalytic activity/Vol] 497 U/L High [facility] MANUAL DIFF AND MORPHon Anisocytosis Ql (Bld) Marked [facility] Atypical Lymph # 0.15 K/uL [facility] Band form neutrophils/100 WBC (Bld) 8 % <=10 [facility] Bands # 0.58 K/uL High <0.01 [facility] Robles cells LM Ql (Bld) Few [...] Interpretation and review of laboratory results Abnormal [facility] PROTHROMBIN TIME AND INRon 0 01-13-2022 INR Coag (PPP) [Relative time] 2.05 {INR} High [facility] Interpretation and review of laboratory results Abnormal [facility] PT Coag (PPP) [Time] 23.0 s High [facility] Basic metabolic 2000 panelon 01-12-2022 Anion gap [Moles/Vol] 11 mmol/L [facility] Calcium [Mass/Vol] 7.9 mg/dL Low 8.4 - 10.4 mg/dL [facility] Chloride [Moles/Vol] 98 mmol/L 97 - 111 mmol/L [facility] CO2 [Moles/Vol] 26 mmol/L 21 - 30 mmol/L [facility] Creatinine [Mass/Vol] 0.39 mg/dL Low 0.80 - 1.30 mg/dL [facility] GFR/1.73 sq M.predicted MDRD (S/P/Bld) [Vol rate/Area] 145 mL/min/{1.73_m2} >=60 mL/min/1.73sqm [facility] Glucose [Mass/Vol] 147 mg/dL High 68 - 110 mg/dL [facility] Interpretation and review of laboratory results Abnormal [facility] Potassium [Moles/Vol] 3.2 mmol/L Low 3.3 - 5.3 mmol/L [facility] Sodium [Moles/Vol] 132 mmol/L Low 135 - 148 mmol/L [facility] Urea nitrogen [Mass/Vol] 6 mg/dL Low 8 - 22 mg/dL [facility] CBC WITH DIFFERENTIALOrdered By: Tayla Strickland [...] (RBC) [Mass/Vol] 33.9 g/dL 32.0 - 35.9 g/dL [facility] MCV (RBC) [Entitic vol] 113 fL [...] g/dL Critically low 13.9 - 16.3 g/dL [facility] Interpretation and review of laboratory results Abnormal [facility] Lymphocytes (Bld) [#/Vol] 1.66 10*3/uL 1.00 - 4.80 K/uL [facility] Lymphocytes/100 WBC (Bld) 20.7 % Low 24.0 - 44.0 % [facility] MCH (RBC) [Entitic mass] 38.1 pg High 26.0 - 34.0 pg [facility] MCHC (RBC) [Mass/Vol] 35.0 g/dL 32.0 - 35.9 g/dL [facility] MCV (RBC) [Entitic vol] 109 fL [...] [facility] RBC (Bld) [#/Vol] 1.72 10*6/uL Low [facility] WBC (Bld) [#/Vol] 8.0 10*3/uL 4.5 - 11.5 K/uL [facility] GLUCOSE, FINGERSTICK-IN OFFI CEon 01-12-2022 Glucose [Mass/Vol] 140 mg/dL High 68 - 110 mg/dL [facility] Interpretation and review of laboratory results Abnormal [facility] Glucose [Mass/Vol] 157 mg/dL High 68 - 110 mg/dL [facility] Interpretation and review of laboratory results Abnormal [facility] HAPTOGLOBINon 01-12-2022 Haptoglobin [Mass/Vol] mg/dL Low 36 - 220 mg/dL [facility] Interpretation and review of laboratory results Abnormal [facility] HEPATIC FUNCTION PANELon Albumin [Mass/Vol] 2.6 g/dL Low 3.4 - 5.1 g/dL [facility] ALP [Catalytic activity/Vol] 148 U/L [facility] ALT [Catalytic activity/Vol] 61 U/L High [facility] AST [Catalytic activity/Vol] 131 U/L High [facility] Bilirubin [Mass/Vol] 11.1 mg/dL High 0.1 - 1.5 mg/dL [facility] Bilirubin.direct [Mass/Vol] 2.10 mg/dL High 0.10 - 0.30 mg/dL [facility] Protein [Mass/Vol] 6.4 g/dL 6.2 - 8.3 g/dL [facility] LDHon 01-12-2022 LDH [Catalytic activity/Vol] 458 U/L High [facility] MANUAL DIFF AND MORPHon Anisocytosis Ql (Bld) Moderate [facility] Band form neutrophils/100 WBC (Bld) 3 % <=10 [facility] Bands # 0.23 K/uL High <0.01 [facility] [place] cells LM Ql (Bld) Few [facility] Cells [...] (Bld) Slight [facility] Anisocytosis Ql (Bld) Marked [facility] [place] cells LM Ql (Bld) Few [facility] Cells [...] Coag (PPP) [Time] 23.8 s High [facility] ABO RH TYPEon 01-11-2022 [facility] Basic metabolic 2000 panelon 01-11-2022 Anion gap [Moles/Vol] 10 mmol/L [facility] Calcium [Mass/Vol] 8.0 mg/dL Low 8.4 - 10.4 mg/dL [facility] Chloride [Moles/Vol] 101 mmol/L 97 - 111 mmol/L [facility] CO2 [Moles/Vol] 25 mmol/L 21 - 30 mmol/L [facility] Creatinine [Mass/Vol] 0.43 mg/dL Low 0.80 - 1.30 mg/dL [facility] GFR/1.73 sq M.predicted MDRD (S/P/Bld) [Vol rate/Area] 141 mL/min/{1.73_m2} >=60 mL/min/1.73sqm [facility] Glucose [Mass/Vol] 149 mg/dL High 68 - 110 mg/dL [facility] Potassium [Moles/Vol] 3.4 mmol/L 3.3 - 5.3 mmol/L [facility] Sodium [Moles/Vol] 133 mmol/L Low 135 [...] (RBC) [Mass/Vol] 35.2 g/dL 32.0 - 35.9 g/dL [facility] MCV (RBC) [Entitic vol] 109 fL [...] [facility] CBC WITH DIFFERENTIALon Basophils (Bld) [#/Vol] 0.04 10*3/uL 0.00 - [...] g/dL Critically low 13.9 - 16.3 g/dL [facility] Interpretation and review of laboratory results Abnormal [facility] Lymphocytes (Bld) [#/Vol] 0.93 10*3/uL Low 1.00 - 4.80 K/uL [facility] Lymphocytes/100 WBC (Bld) 12.7 % Low 24.0 - 44.0 % [facility] MCH (RBC) [Entitic mass] 38.2 pg High 26.0 - 34.0 pg [facility] MCHC (RBC) [Mass/Vol] 35.3 g/dL 32.0 - 35.9 g/dL [facility] MCV (RBC) [Entitic vol] 108 fL High 80 - 100 fL [facility] Monocyte distribution width Auto (Bld) [Entitic vol] [facility] Monocytes (Bld) [#/Vol] 0.96 10*3/uL 0.20 - 1.00 K/uL [facility] Monocytes/100 WBC (Bld) 13.3 % High 2.0 - 11.0 % [facility] Neutrophils (Bld) [#/Vol] 5.33 10*3/uL 1.50 - 8.00 K/uL [facility] Neutrophils/100 WBC (Bld) 73.3 % 31.0 - 76.0 % [facility] Platelet mean volume (Bld) [Entitic vol] 8.4 fL 7.5 - 11.2 fL [facility] Platelets (Bld) [#/Vol] 62 10*3/uL Low 150 - 400 K/uL [facility] RBC (Bld) [#/Vol] 1.54 10*6/uL Low [facility] WBC (Bld) [#/Vol] 7.3 10*3/uL 4.5 - 11.5 K/uL [facility] GLUCOSE, FINGERSTICK-IN OFFI CEon 01-11-2022 Glucose [Mass/Vol] 167 mg/dL High 68 - 110 mg/dL [facility] Interpretation and review of laboratory results [facility]normal [facility] HAPTOGLOBINon 01-11-2022 Haptoglobin [Mass/Vol] mg/dL Low 36 - 220 mg/dL [facility] Interpretation and review of laboratory results Abnormal [facility] HEPATIC FUNCTION PANELon Albumin [Mass/Vol] 2.6 g/dL Low 3.4 - 5.1 g/dL [facility] ALP [Catalytic activity/Vol] 95 U/L [facility] ALT [Catalytic activity/Vol] 57 U/L High [facility] AST [Catalytic activity/Vol] 143 U/L High [facility] Bilirubin [Mass/Vol] 11.4 mg/dL High 0.1 - 1.5 mg/dL [facility] Bilirubin.direct [Mass/Vol] 2.20 mg/dL High 0.10 - 0.30 mg/dL [facility] Protein [Mass/Vol] 5.7 g/dL Low 6.2 - 8.3 g/dL [facility] LDHon 01-11-2022 LDH [Catalytic activity/Vol] 428 U/L High [facility] Laboratory - Blood bankon ABO and Rh group Nom (Bld) Blood group A Rh(D) positive [facility] MAGNESIUMon 01-11-2022 Interpretation and review of laboratory results Normal [facility] Magnesium [Mass/Vol] 2.0 mg/dL 1.6 - 2.8 mg/dL [facility] MANUAL DIFF AND MORPHon Band form neutrophils/100 WBC (Bld) 3 % <=10 [facility] Bands # 0.22 K/uL High <0.01 [facility] [place] cells LM Ql (Bld) Few [facility] Cells [...] (Bld) Few [facility] Anisocytosis Ql (Bld) Marked [facility] [place] cells LM Ql (Bld) Few [facility] Cells [...] Coag (PPP) [Time] 24.2 s High [facility] TYPE AND SCREENon 01-11-2022 ABO and Rh group Nom (Bld) Blood group A Rh(D) positive [facility] ABO and Rh group Nom (Bld) No Previous Results [facility] Blood group antibody screen Ql Negative [facility] Basic metabolic 2000 panelon 01-10-2022 Anion gap [Moles/Vol] 17 mmol/L [facility] Calcium [Mass/Vol] 8.6 mg/dL 8.4 - 10.4 mg/dL [facility] Chloride [Moles/Vol] 99 mmol/L 97 - 111 mmol/L [facility] CO2 [Moles/Vol] 22 mmol/L 21 - 30 mmol/L [facility] Creatinine [Mass/Vol] 0.60 mg/dL Low 0.80 - 1.30 mg/dL [facility] GFR/1.73 sq M.predicted MDRD (S/P/Bld) [Vol rate/Area] 128 mL/min/{1.73_m2} >=60 mL/min/1.73sqm [facility] Glucose [Mass/Vol] 165 mg/dL High 68 - 110 mg/dL [facility] Interpretation and review of laboratory results Abnormal [facility] Potassium [Moles/Vol] 3.5 mmol/L 3.3 - 5.3 mmol/L [facility] Sodium [Moles/Vol] 134 mmol/L Low 135 - 148 mmol/L [facility] Urea nitrogen [Mass/Vol] 4 mg/dL Low 8 - 22 mg/dL [facility] Anion gap [Moles/Vol] 9 mmol/L Low [facility] Calcium [Mass/Vol] 8.4 mg/dL 8.4 - 10.4 mg/dL [facility] Chloride [Moles/Vol] 101 mmol/L 97 - 111 mmol/L [facility] CO2 [Moles/Vol] 27 mmol/L 21 - 30 mmol/L [facility] Creatinine [Mass/Vol] 0.44 mg/dL Low 0.80 - 1.30 mg/dL [facility] GFR/1.73 sq M.predicted MDRD (S/P/Bld) [Vol rate/Area] 140 mL/min/{1.73_m2} >=60 mL/min/1.73sqm [facility] Glucose [Mass/Vol] 172 mg/dL High 68 - 110 mg/dL [facility] Potassium [Moles/Vol] 4.0 mmol/L 3.3 - 5.3 mmol/L [facility] Sodium [Moles/Vol] 133 mmol/L Low 135 [...] (RBC) [Mass/Vol] 35.5 g/dL 32.0 - 35.9 g/dL [facility] MCV (RBC) [Entitic vol] 107 fL [...] K/uL [facility] CBC WITH DIFFERENTIALon 0 6-2022 Basophils (Bld) [#/Vol] 0.07 10*3/uL 0.00 - [...] (RBC) [Mass/Vol] 35.3 g/dL 32.0 - 35.9 g/dL [facility] MCV (RBC) [Entitic vol] 106 fL [...] [facility] RBC (Bld) [#/Vol] 1.80 10*6/uL Low [facility] WBC (Bld) [#/Vol] 4.7 10*3/uL 4.5 - 11.5 K/uL [facility] CREATINE KINASEon 01-10-2022 CK [Catalytic activity/Vol] 1073 U/L High [facility] D-DIMEROrdered By: Gabriella Kinney oth on 01-10-2022 Fibrin D-dimer DDU (PPP) [Mass/Vol] >5000 High <230 ng/mL DDU [facility] Interpretation and review of laboratory results Abnormal [facility] EKG 12 LEAD - PERFORMon Diagnosis [facility] P wave Atrium by EKG 96 BPM [facility] P wave axis 43 degrees [facility] P-R Interval 144 [facility] Q[facility] interval 326 ms [facility] Q-T interval corrected 411 ms [facility] QRS axis 49 degrees [facility] QRS duration 92 ms [facility] T wave axis 24 degrees [employer] HAPTOGLOBINon 01-10-2022 Haptoglobin [Mass/Vol] mg/dL Low 36 - 220 mg/dL [facility] Interpretation and review of laboratory results Abnormal [employer] HEPATIC FUNCTION PANELon Albumin [Mass/Vol] 2.7 g/dL Low 3.4 - 5.1 g/dL [facility] ALP [Catalytic activity/Vol] 87 U/L [facility] ALT [Catalytic activity/Vol] 54 U/L High [facility] AST [Catalytic activity/Vol] 147 U/L High [facility] Bilirubin [Mass/Vol] 11.1 mg/dL High 0.1 - 1.5 mg/dL [facility] Bilirubin.direct [Mass/Vol] 2.60 mg/dL High 0.10 - 0.30 mg/dL [facility] Protein [Mass/Vol] 6.0 g/dL Low 6.2 - 8.3 g/dL [facility] LDHOrdered By: Jarrod cruz on 01-10-2022 Interpretation and review of laboratory results Abnormal [facility] LDH [Catalytic activity/Vol] 378 U/L High [employer] Laboratory - Microbiology an d Antimicrobial susceptibilityon 01-10-2022 RSV RNA ANGIE+probe Ql (Unsp spec) Negative Negative [facility] Laboratory - Specimen inform ationon 01-10-2022 Specimen source Nom (Unsp spec) Negative Negative [facility] MAGNESIUMon 01-10-2022 Interpretation and review of laboratory results Normal [facility] Magnesium [Mass/Vol] 1.7 mg/dL 1.6 - 2.8 mg/dL [facility] MANUAL DIFF AND MORPHon Acanthocytes LM Ql (Bld) Few [facility] Robles cells LM Ql (Bld) Moderate [facility] Cells Counted Total (Bld) [#] [facility] Macrocytes Ql (Bld) Slight [facility] Ovalocytes LM Ql (Bld) Few [facility] Schistocytes LM Ql (Bld) Few [facility] Acanthocytes LM Ql (Bld) Few [facility] [place] cells LM Ql (Bld) Few [facility] Cells Counted Total (Bld) [#] [facility] Macrocytes Ql (Bld) Slight [facility] Polychromasia LM Ql (Bld) Slight [facility] Schistocytes LM Ql (Bld) Few [facility] Target cells LM Ql (Bld) Few [facility] No [facility]on [facility] Interpretation and review of laboratory results Abnormal [employer] [facility] No Panel InformationOrdered By: Meka Morales on 01-10-2022 [facility] PARTIAL THROMBOPLASTIN TIMEo n 01-10-2022 aPTT Coag (Bld) [Time] 29 s [facility] Interpretation and review of laboratory results Normal [employer] PROTHROMBIN TIME AND INRon 0 01-10-2022 INR Coag (PPP) [Relative time] 1.79 {INR} High [facility] Interpretation and review of laboratory results Abnormal [facility] PT Coag (PPP) [Time] 20.1 s High [facility] RED BLOOD CELL COMPONENTon 0 01-10-2022 BB Order Item Product status info to follow [employer] RESPIRATORY VIRUS PANEL, PCR on 01-10-2022 Adenovirus DNA ANGIE+probe Ql (Unsp spec) Negative Negative [facility] C. pneumoniae DNA ANGIE+probe Ql (Unsp spec) Negative Negative [facility] FLUAV H1 RNA ANGIE+probe Ql (Unsp spec) Negative Negative [facility] FLUAV H3 RNA ANGIE+probe Ql (Unsp spec) Negative Negative [facility] FLUAV RNA ANGIE+probe Ql (Unsp spec) Negative Negative [facility] FLUBV RNA ANGIE+probe Ql (Unsp spec) Negative Negative [facility] HCoV HKU1 RNA ANGIE+probe Ql (Unsp spec) Negative Negative [facility] HCoV NL63 RNA ANGIE+probe Ql (Unsp spec) Negative Negative [facility] hMPV RNA ANGIE+probe Ql (Unsp spec) Negative Negative [facility] Interpretation and review of laboratory results Normal [facility] M. pneumoniae DNA ANGIE+probe Ql (Unsp spec) Negative Negative [facility] Parainfluenza virus 1 RNA ANGIE+probe Ql (Unsp spec) Negative Negative [facility] Parainfluenza virus 2 RNA ANGIE+probe Ql (Unsp spec) Negative Negative [facility] Parainfluenza virus 3 RNA ANGIE+probe Ql (Unsp spec) Negative Negative [facility] Parainfluenza virus 4 RNA ANGIE+probe Ql (Unsp spec) Negative Negative [facility] Rhinovirus RNA ANGIE+probe Nom (Unsp spec) Negative Negative [employer] US HEP PORT SPLEN VEIN + DOP PLERon 01-10-2022 RADIOLOGY [employer] Radiology Study observation (narrative) [facility] US SPLEENon 01-10-2022 RADIOLOGY [facility] Radiology Study observation (narrative) [facility] SPLEENOrdered By: Enrique Basurto on 01-10-2022 [facility] Work Phone: AMMONIAon 01-09-2022 Ammonia (P) [Moles/Vol] 74 umol/L High 11 - 35 umol/L [facility] Interpretation and review of laboratory results Abnormal [employer] AUTOIMMUNE MULTIPLEX PANELon 01-09-2022 Interpretation and review of laboratory results Normal [facility] Nuclear Ab IA Ql (S) Negative Negative [facility] Basic metabolic 2000 panelon 01-09-2022 Anion gap [Moles/Vol] 10 mmol/L [facility] Calcium [Mass/Vol] 8.1 mg/dL Low 8.4 - 10.4 mg/dL [facility] Chloride [Moles/Vol] 100 mmol/L 97 - 111 mmol/L [facility] CO2 [Moles/Vol] 27 mmol/L 21 - 30 mmol/L [facility] Creatinine [Mass/Vol] 0.41 mg/dL Low 0.80 - 1.30 mg/dL [facility] GFR/1.73 sq M.predicted MDRD (S/P/Bld) [Vol rate/Area] 143 mL/min/{1.73_m2} >=60 mL/min/1.73sqm [facility] Glucose [Mass/Vol] 142 mg/dL High 68 - 110 mg/dL [facility] Potassium [Moles/Vol] 4.0 mmol/L 3.3 - 5.3 mmol/L [facility] Sodium [Moles/Vol] 133 mmol/L Low 135 - 148 mmol/L [facility] Urea nitrogen [Mass/Vol] 7 mg/dL Low 8 - 22 mg/dL [facility] CBC WITH DIFFERENTIALOrdered By: Norris Billings [...] (RBC) [Mass/Vol] 34.9 g/dL 32.0 - 35.9 g/dL [facility] MCV (RBC) [Entitic vol] 105 fL [...] (RBC) [Mass/Vol] 35.2 g/dL 32.0 - 35.9 g/dL [facility] MCV (RBC) [Entitic vol] 103 fL [...] [facility] RBC (Bld) [#/Vol] 1.84 10*6/uL [facility] W[facility] (Bld) [#/Vol] 3.8 10*3/uL Low 4.5 - 11.5 K/uL [facility] CREATINE KINASEon 01-09-2022 CK [Catalytic activity/Vol] 892 U/L High [facility] Interpretation and review of laboratory results Abnormal [facility] HEPATIC FUNCTION PANELon Albumin [Mass/Vol] 2.7 g/dL Low 3.4 - 5.1 g/dL [facility] ALP [Catalytic activity/Vol] 92 U/L [facility] ALT [Catalytic activity/Vol] 47 U/L [facility] AST [Catalytic activity/Vol] 124 U/L High [facility] Bilirubin [Mass/Vol] 11.2 mg/dL High 0.1 - 1.5 mg/dL [facility] Bilirubin.direct [Mass/Vol] 2.50 mg/dL High 0.10 - 0.30 mg/dL [facility] Protein [Mass/Vol] 6.0 g/dL Low 6.2 - 8.3 g/dL [facility] HIV 1 and 2 Ab and HIV 1 p24 Ag panel IAon 01-09-2022 HIV 1+2 Ab+HIV1 p24 Ag IA Ql Non-Reactive Non-Reactive [facility] Interpretation and review of laboratory results Normal [facility] Lipid 1996 panelon 2 Cholesterol [Mass/Vol] 341 mg/dL High <200 [facility] Cholesterol in HDL [Mass/Vol] 30 mg/dL Low >44 [facility] Cholesterol in LDL [Mass/Vol] 277 mg/dL High <111 [facility] Cholesterol in LDL/Cholesterol in HDL [Mass ratio] 9.23 {ratio} High <3.57 [facility] Cholesterol non HDL [Mass/Vol] 311 mg/dL High <130 [facility] Cholesterol.total/Ch olesterol in HDL [Mass ratio] 11.37 {ratio} High <5.00 [facility] Interpretation and review of laboratory results Abnormal [facility] Triglyceride [Mass/Vol] 266 mg/dL High <151 [facility] MANUAL DIFF AND MORPHon Anisocytosis Ql (Bld) Moderate [facility] Robles cells LM Ql (Bld) Few [facility] Cells Counted Total (Bld) [#] [facility] Dacrocytes LM Ql (Bld) Few [facility] Macrocytes Ql (Bld) Slight [facility] Ovalocytes LM Ql (Bld) Moderate [facility] Polychromasia LM Ql (Bld) Slight [facility] Schistocytes LM Ql (Bld) Few [facility] Target cells LM Ql (Bld) Few [facility] Anisocytosis Ql (Bld) Marked [facility] [place] cells LM Ql (Bld) Few [facility] Cells [...] Panel InformationOrdered By: Mi Alcazar on [facility]-09-[facility] Panel Information[facility] 01-09 Interpretation and review of laboratory results Abnormal [facility] PROTHROMBIN TIME AND INRon 0 01-09-2022 INR Coag (PPP) [Relative time] 1.94 {INR} High [facility] Interpretation and review of laboratory results Abnormal [facility] PT Coag (PPP) [Time] 21.8 s High [facility] RED BLOOD CELL COMPONENTon 0 01-09-2022 BB Order Item Product status info to follow [employer] THYROXINE (T4), FREEon 01-09 Free T4 [Mass/Vol] 0.88 ng/dL 0.45 - 1.80 ng/dL [facility] Interpretation and review of laboratory results Normal [facility] XR ABDOMEN 1 VIEW APon 01-09 RADIOLOGY [facility] Radiology Study observation (narrative) [facility] ABDOMEN 1 VIEW APOrdered By: Ulysses Omalley on 01-09-2022 [facility] Work Phone: ACETAMINOPHENon 01-08-2022 Acetaminophen [Mass/Vol] ug/mL 10 - 20 ug/mL [facility] Interpretation and review of laboratory results Normal [employer] ANTIBODY ID ELUTED-LAB ONLYo n 01-08-2022 Blood group antibody screen Elution Ql Negative [employer] Basic metabolic 2000 panelon 01-08-2022 Anion gap [Moles/Vol] 16 mmol/L [facility] Calcium [Mass/Vol] 8.1 mg/dL Low 8.4 - 10.4 mg/dL [facility] Chloride [Moles/Vol] 95 mmol/L Low 97 - 111 mmol/L [facility] CO2 [Moles/Vol] 22 mmol/L 21 - 30 mmol/L [facility] Creatinine [Mass/Vol] 0.44 mg/dL Low 0.80 - 1.30 mg/dL [facility] GFR/1.73 sq M.predicted MDRD (S/P/Bld) [Vol rate/Area] 140 mL/min/{1.73_m2} >=60 mL/min/1.73sqm [facility] Glucose [Mass/Vol] 91 mg/dL 68 - 110 mg/dL [facility] Potassium [Moles/Vol] 3.7 mmol/L 3.3 - 5.3 mmol/L [facility] Sodium [Moles/Vol] 129 mmol/L Low 135 - 148 mmol/L [facility] Urea nitrogen [Mass/Vol] 5 mg/dL Low 8 - 22 mg/dL [facility] CBC WITH DIFFERENTIALOrdered By: Fiorella Cochran [...] (RBC) [Mass/Vol] 35.7 g/dL 32.0 - 35.9 g/dL [facility] MCV (RBC) [Entitic vol] 105 fL [...] [Mass/Vol] 36.1 g/dL High 32.0 - 35.9 g/dL [facility] MCV (RBC) [Entitic vol] 102 fL [...] RBC (Bld) [#/Vol] 1.96 10*6/uL Low [facility] WBC (Bld) [#/Vol] 5.7 10*3/uL 4.5 - 11.5 K/uL [facility] CREATINE KINASEon 01-08-2022 CK [Catalytic activity/Vol] 777 U/L High [facility] DIRECT ANTIGLOBULIN TESTon 0 01-08-2022 Direct antiglobulin test.complement specific reagent Ql (RBC) Negative [facility] Direct antiglobulin test.IgG specific reagent (RBC) [Interp] Positive [facility] Direct antiglobulin test.poly specific reagent Ql (RBC) Positive [employer] EKG 12 LEAD - PERFORMon Diagnosis [facility] P wave Atrium by EKG 76 BPM [facility] P wave axis 46 degrees [facility] P-R Interval 132 ms [facility] Q-T interval 422 ms [facility] Q-T interval corrected 474 ms [facility] QRS axis 44 degrees [facility] QRS duration 86 ms [facility] T wave axis 22 degrees [facility] FERRITINon 01-08-2022 Ferritin [Mass/Vol] 829.1 ng/mL High 11.5 - 3 00.0 ng/mL [facility] Interpretation and review of laboratory results Abnormal [facility] FOLIC ACIDon 01-08-2022 Folate [Mass/Vol] 13.9 ng/mL 5.9 - 24.7 ng/mL [facility] Interpretation and review of laboratory results [facility] GLUCOSE, FINGERSTICK-IN OFFI CEon 01-08-2022 Glucose [Mass/Vol] 94 mg/dL 68 - 110 mg/dL [facility] Interpretation and review of laboratory results Normal [employer] HAPTOGLOBINon 01-08-2022 Haptoglobin [Mass/Vol] mg/dL Low 36 - 220 mg/dL [facility] Interpretation and review of laboratory results Abnormal [employer] HCV Ab IA Qn (S)on HCV Ab Ql (S) Non-Reactive Nonreactive [facility] Interpretation and review of laboratory results Normal [employer] HEPATIC FUNCTION PANELon Albumin [Mass/Vol] 2.9 g/dL Low 3.4 - 5.1 g/dL [facility] ALP [Catalytic activity/Vol] 121 U/L [facility] ALT [Catalytic activity/Vol] 50 U/L High [facility] AST [Catalytic activity/Vol] 129 U/L High [facility] Bilirubin [Mass/Vol] 11.1 mg/dL High 0.1 - 1.5 mg/dL [facility] Bilirubin.direct [Mass/Vol] 2.40 mg/dL High 0.10 - 0.30 mg/dL [facility] Protein [Mass/Vol] 6.4 g/dL 6.2 - 8.3 g/dL [facility] HEPATITIS A IGM ANTIBODYon 0 01-08-2022 HAV IgM IA Ql Non-Reactive Nonreactive [facility] Interpretation and review of laboratory results Normal [employer] HEPATITIS A TOTAL ANTIBODYon 01-08-2022 HAV Ab IA Ql (S) Reactive Abnormal Nonreactive [facility] Interpretation and review of laboratory results Abnormal [employer] HEPATITIS B CORE ANTIBODYon 01-08-2022 HBV core Ab Ql (S) Non-Reactive Nonreactive [facility] Interpretation and review of laboratory results Normal [employer] HEPATITIS B SURFACE ANTIBODY on 01-08-2022 HBV surface Ab IA Qn m[IU]/mL mIU/mL [facility] HEPATITIS B SURFACE ANTIGENo n 01-08-2022 HBV surface Ag Ql (S) Non-Reactive Non-Reactive [facility] Interpretation and review of laboratory results Normal [employer] IRON AND TIBCon 01-08-2022 Interpretation and review of laboratory results Abnormal [facility] Iron [Mass/Vol] 145 ug/dL 45 - 160 ug/dL [facility] Iron binding capacity [Mass/Vol] 214 ug/mL Low 250 - 410 ug/mL [facility] Iron saturation [Mass fraction] 68 % High 20 - 55 % [facility] Transferrin [Mass/Vol] 153 mg/dL Low 210 - 375 mg/dL [facility] LACTIC ACIDOrdered By: Arnol kowalski on 01-08-2022 Interpretation and review of laboratory results Normal [facility] Lactate [Moles/Vol] 1.1 mmol/L 0.5 - 2.0 mmol/L [facility] LDHOrdered By: Yaritza staton on 01-08-2022 Interpretation and review of laboratory results Abnormal [facility] LDH [Catalytic activity/Vol] 369 U/L High [facility] MAGNESIUMon 01-08-2022 Interpretation and review of laboratory results Normal [facility] Magnesium [Mass/Vol] 1.7 mg/dL 1.6 - 2.8 mg/dL [facility] MANUAL DIFF AND MORPHon Anisocytosis Ql (Bld) Marked [facility] Cells Counted Total (Bld) [#] [facility] [...] review of laboratory results Abnormal [facility] RADIOLOGY [facility] No Panel InformationOrdered By: Rafy Carr on 01-08-2022 [facility] No Panel InformationOrdered By: Crow Werner on 01-08-2022 [facility] Work Phone: PROTHROMBIN TIME AND INRon 0 01-08-2022 INR Coag (PPP) [Relative time] 1.78 {INR} High [facility] Interpretation and review of laboratory results Abnormal [facility] PT Coag (PPP) [Time] 20.0 s High [facility] RETICULOCYTE COUNTOrdered By : Deborah Che on 01-08-2022 Immature reticulocytes/Total reticulocytes (Bld) 0.56 % High [facility] Interpretation and review of laboratory results Abnormal [facility] Reticulocytes (Bld) [#/Vol] 0.10 10*3/uL High [facility] Reticulocytes/100 RBC (Bld) 5.2 % High 0.5 - 1.5 % [employer] TSHon 01-08-2022 Interpretation and review of laboratory results Abnormal [facility] TSH Qn 6.627 m[IU]/L High [employer] US ASCITES SURVEY 4 QUADRANT Son 01-08-2022 RADIOLOGY [facility] Radiology Study observation (narrative) [facility] US ASCITES SURVEY 4 QUADRANT SOrdered By: Lisa Rizzo on 01-08-2022 [facility] Work Phone: US LIVER/GALL BLADDER/PANCRE ASon 01-08-2022 RADIOLOGY [employer] Radiology Study observation (narrative) [facility] VITAMIN B12 (CYANOCOBALAMIN) on 01-08-2022 Cobalamin (Vitamin B12) [Moles/Vol] 1299 pg/mL >300 [facility] Interpretation and review of laboratory results Normal [facility] XR ELBOW LEFT MINIMUM 3 VIEW Son 01-08-2022 Radiology Study observation (narrative) [facility] XR HUMERUS LEFTon 01-08-2022 Radiology Study observation (narrative) [facility] XR ORBITSon 01-08-2022 RADIOLOGY [facility] Radiology Study observation (narrative) [facility] XR ORBITSOrdered By: Philipp Salgado on 01-08-2022 [facility] Work Phone: BLOOD BANKOrdered By: Destiny Mark [...] g/dL Low 3.3 - 5.0 gm/dL [facility] Albumin/Globulin [Mass ratio] 0.9 {ratio} Low [...] 23 mmol/L Normal 21 - 31 mmol/L [facility] Creatinine [Mass/Vol] mg/dL Low 0.5 - 1.3 mg/dL [facility] Ethanol [Mass/Vol] 107 mg/dL Invalid Interpretation Code <=7mg/dL [facility] Comment on above: Result Comment: Crit ical Result verified by repeat analysis\Critical Result S_ETOH:107.0 Called to RODGER LAZARO AT by MARCIAL MORA And Read Back For Confirmation at: 01/07/2022 10:03:11 GFR/1.73 sq M.predicted among blacks MDRD (S/P/Bld) [Vol rate/Area] mL/min/1.73 m2 Normal >=59mL/min/1.73 m2 [facility] GFR/1.73 sq M.predicted among non-blacks MDRD (S/P/Bld) [Vol rate/Area] mL/min/1.73 m2 Normal >=59mL/min/1.73 m2 [facility] Globulin (S) [Mass/Vol] 3.6 g/dL Normal 1.4 - 4.0 gm/dL [facility] Glucose [Mass/Vol] 116 mg/dL Normal 55 - 199 mg/dL [facility] Lipase [Catalytic activity/Vol] 59 U/L High 13 - 58 unit/L [facility] Potassium [Moles/Vol] 3.8 mmol/L Normal 3.5 - 5.3 mmol/L [facility] Protein [Mass/Vol] 6.8 g/dL Normal 6.0 - 7.8 gm/dL [facility] Sodium [Moles/Vol] 132 mmol/L Low 135 - 145 mmol/L [facility] Troponin I.cardiac [Mass/Vol] 18.40 pg/mL Normal 15.90 - 38.40 pg/mL [facility] Urea nitrogen [Mass/Vol] 7 mg/dL Normal 5 - 21 mg/dL [facility] Urea nitrogen/Creatinine [Mass ratio] Unable to [...] [Mass/Vol] 36.0 g/dL Normal 31.4 - 36.0 gm/dL [facility] HemeAutoSS MCV (RBC) [Entitic vol] 108.0 fL High 80.0 - 100.0 fL [facility]eAutoSS Morphology Parth (Bld) [Interp] See Morphology (01/07/22 9:25 AM) Normal [facility] HemeManSS Platelet mean volume (Bld) [Entitic vol] 8.8 fL Normal 6.4 - 10.8 fL [facility] HemeAutoSS Platelets (Bld) [#/Vol] 63.0 E9/L Low 150.0 - 500.0 E9/L [facility]eAutoSS RBC (Bld) [#/Vol] 1.8 E12/L Low 4.3 - 5.9 E12/L [facility]eAutoSS Target cells LM Ql (Bld) Present (01/07/22 9:25 AM) Normal [facility] HemeManSS WBC corrected for nucl RBC Auto (Bld) [#/Vol] 7.4 E9/L Normal 4.0 - 11.0 E9/L [facility] HEMATOLOGYOrdered By: SYSTEM SYSTEM on 01-07-2022 Basophils/100 WBC (Bld) 1.1 % Normal 0.0 - 2.0 % [facility]eAutoSS Basophils/Leukocytes Auto (Bld) [Pure # fraction] 0.1 E9/L Normal 0.0 - 0.2 E9/L [facility] Eosinophils/100 WBC (Bld) 1.8 % Normal 0.0 - 8.0 % [facility]eAutoSS Eosinophils/Leukocyt es Auto (Bld) [Pure # fraction] 0.1 E9/L Normal 0.0 - 0.5 E9/L [facility]eAuto[facility] Lymphocytes/100 WBC (Bld) 40.2 % Normal 14.0 - 50.0 % [facility] HemeAutoSS Lymphocytes/Leukocyt es Auto (Bld) [Pure # fraction] 3.0 E9/L Normal 1.0 - 4.0 E9/L [facility]eAutoSS Monocytes/100 WBC (Bld) 12.1 % Normal 4.0 - 14.0 % [facility]eAutoSS Monocytes/Leukocytes Auto (Bld) [Pure # fraction] 0.9 E9/L Normal 0.2 - 1.0 E9/L [facility] Neutrophils/100 WBC (Bld) 44.8 % Normal 36.0 - 75.0 % [facility] HemeAutoSS Neutrophils/Leukocyt es Auto (Bld) [Pure # fraction] 3.3 E9/L Normal 2.0 - 7.5 E9/L [facility] HEMATOLOGYOrdered By: Bhavesh Bone on 01-07-2022 Path Review Anemia with polychromasia, target cells. Thrombocytopenia with no increase of schistocytes. No hypersegmented granulocytes seen.D64.9CPT [id number] Invalid Interpretation Code [facility] HemeManSS URINALYSISOrdered By: [...] Interpretation Code Negative [facility] UA Auto SS [place].plasma/Lithi um.RBC (Bld) [Mass ratio] 0-3 /HPF Normal [...] Desc Clean Catch (01/07/22 12:30 PM) Normal [facility]A Auto SS Urobilinogen Qn (U) [id number] {Alexey'U}/dL Invalid Interpretation Code 0.0 - 1.0 EU/dL [facility] UA Auto SS WBC Auto Ql (U) Negative (01/07/22 12:30 PM) Normal Negative [facility] UA Auto SS WBC LM.HPF (Urine sed) [#/Area] 0-5 /HPF Normal 0-5/HPF [facility] UA Auto SS Vital Signs Date Time Vital Sign Value Performing Clinician Facility 09-21-2023 14:24-0500 Blood Pressure Location Keith Patricia [facility] 09-21-2023 14:24-0500 Body temperature 98.06 [degF] Keith Patricia [facility] 09-21-2023 14:24-0500 Diastolic blood pressure 78 mm[Hg] Keith Patricia [facility] 09-21-2023 14:24-0500 Heart rate 73 /min Keith Patricia [facility] 09-21-2023 14:24-0500 Respiratory rate 18 /min Keith Patricia [facility] 09-21-2023 14:24-0500 SaO2% (BldA) [Mass fraction] 99 % Keith Patricia [facility] 09-21-2023 14:24-0500 Systolic blood pressure 156 mm[Hg] Keith Patricia [facility] 09-01-2023 12:16-0500 Diastolic blood pressure 80 mm[Hg] Martin Sarmini [facility] 09-01-2023 12:16-0500 Mean blood pressure 100 mm[Hg] Martin Sarmini [facility] 09-01-2023 12:16-0500 Systolic blood pressure 140 mm[Hg] Martin Sarmini [facility] 09-01-2023 12:12-0500 Blood Pressure Location Martin Sarmini [facility] 09-01-2023 12:12-0500 Diastolic blood pressure 82 mm[Hg] Martin Sarmini [facility] 09-01-2023 12:12-0500 Heart rate 80 /min Martin Sarmini [facility] 09-01-2023 12:12-0500 Respiratory rate 18 /min Martin Sarmini [facility] 09-01-2023 12:12-0500 Systolic blood pressure 142 mm[Hg] Martin Sarmini [facility] 08-26-2023 09:34-0500 Blood Pressure Location Lisa Lopez [facility] 08-26-2023 09:34-0500 Diastolic blood pressure 88 mm[Hg] Lisa Lopez [facility] 08-26-2023 09:34-0500 Heart rate 71 /min Lisa Lopez [facility] 08-26-2023 09:34-0500 Respiratory rate 18 /min Lisa Lopez [facility] 08-26-2023 09:34-0500 SaO2% (BldA) [Mass fraction] 100 % Lisa Lopez [facility] 08-26-2023 09:34-0500 Systolic blood pressure 150 mm[Hg] Lisa Lopez [facility] 07-24-2023 07:37-0500 Blood Pressure Location Lisa Lopez [facility] 07-24-2023 07:37-0500 Diastolic blood pressure 76 mm[Hg] Lisa Lopez [facility] 07-24-2023 07:37-0500 Heart rate 79 /min Lisa Lopez [facility] 07-24-2023 07:37-0500 Respiratory rate 16 /min Lisa Lopez [facility] 07-24-2023 07:37-0500 SaO2% (BldA) [Mass fraction] 100 % Lisa Lopez [facility] 07-24-2023 07:37-0500 Systolic blood pressure 132 mm[Hg] Lisa Lopez [facility] 06-19-2023 12:23-0400 Body temperature 97.88 [degF] Teddy Luna [facility] 06-19-2023 12:23-0400 Diastolic blood pressure 105 mm[Hg] Teddy Luna [facility] 06-19-2023 12:23-0400 Heart rate 70 /min Teddy Luna [facility] 06-19-2023 12:23-0400 Respiratory rate 18 /min Teddy Luna [facility] 06-19-2023 12:23-0400 SaO2% (BldA) [Mass fraction] 98 % Teddy Luna [facility] 06-19-2023 12:23-0400 Systolic blood pressure 165 mm[Hg] Teddy Luna [facility] 04-24-2023 11:00-0400 Body height 170.18 cm Jarrod Eddy Other [employer] [facility] [employer] Other 04-24-2023 11:00-0400 Body mass index (BMI) [Ratio] 26.94 kg/m2 Jarrod Eddy Other [employer] Other 04-24-2023 11:00-0400 Body temperature 97.4 [degF] Jarrod Dillardrer Other [employer] Other 04-24-2023 11:00-0400 Body weight 78.02 kg Jarrod Dillardrer Other [employer] Other 04-24-2023 11:00-0400 Diastolic blood pressure 70 mm[Hg] Jarrod Dillardrer Other [employer] Other 04-24-2023 11:00-0400 SaO2% (BldA) [Mass fraction] 99 % Jarrod Dillardrer Other [employer] Other 04-24-2023 11:00-0400 Systolic blood pressure 138 mm[Hg] Jarrod Dillardrer Other [employer] Other 04-21-2023 09:38-0400 Body height 170.2 cm Tanvir Black MD Work Phone: [employer] 04-21-2023 09:38-0400 Body mass index (BMI) [Ratio] 27.08 kg/m2 Tanvir Black MD Work Phone: [employer] 04-21-2023 09:38-0400 Body temperature 97.7 [degF] Tanvir Black MD Work Phone: [employer] 04-21-2023 09:38-0400 Body weight 78.43 kg Tanvir Black MD Work Phone: [employer] 04-21-2023 09:38-0400 Diastolic blood pressure 67 mm[Hg] Tanvir Black MD Work Phone: [employer] 04-21-2023 09:38-0400 Heart rate 79 /min Tanvir Black MD Work Phone: [facility] 04-21-2023 09:38-0400 Respiratory rate 20 /min Tanvir Black MD Work Phone: [facility] 04-21-2023 09:38-0400 SaO2% (BldA) [Mass fraction] 100 % Tanvir Black MD Work Phone: [facility] 04-21-2023 09:38-0400 Systolic blood pressure 136 mm[Hg] Tanvir Black MD Work Phone: [facility] 03-22-2023 21:05-0400 Diastolic blood pressure 80 mm[Hg] Martin Mary Ann [facility] 03-22-2023 21:05-0400 Heart rate 88 /min Martin Mary Ann [facility] 03-22-2023 21:05-0400 Hourly Rounding Martin Mary Ann [facility] 03-22-2023 21:05-0400 Promise to Return Martin Mary Ann [facility] 03-22-2023 21:05-0400 Respiratory rate 18 /min Martin Mary Ann [facility] 03-22-2023 21:05-0400 SaO2% (BldA) [Mass fraction] 100 % Martin Mary Nan [facility] 03-22-2023 21:05-0400 Systolic blood pressure 148 mm[Hg] Martin Mary Ann [facility] 03-22-2023 20:07-0400 Body temperature 97.7 [degF] Martin Mary Ann [facility] 03-22-2023 20:07-0400 Diastolic blood pressure 84 mm[Hg] Martin Mary Ann [facility] 03-22-2023 20:07-0400 Heart rate 92 /min Martin Mary Ann [facility] 03-22-2023 20:07-0400 Respiratory rate 18 /min Martin Reese [facility] 03-22-2023 20:07-0400 SaO2% (BldA) [Mass fraction] 100 % Martin Mary Ann [facility] 03-22-2023 20:07-0400 Systolic blood pressure 151 mm[Hg] Martin Mary Ann [facility] 02-18-2023 09:11-0400 Diastolic blood pressure 70 mm[Hg] Brent Sanches [facility] 02-18-2023 09:11-0400 Heart rate 82 /min Brent Sacnhes [facility] 02-18-2023 09:11-0400 Mean blood pressure 91 mm[Hg] Brent Myron [facility] 02-18-2023 09:11-0400 Respiratory rate 16 /min Brent Myron [facility] 02-18-2023 09:11-0400 SaO2% (BldA) [Mass fraction] 98 % Brent Myron [facility] 02-18-2023 09:11-0400 Systolic blood pressure 132 mm[Hg] Brent Myron [facility] 02-18-2023 07:45-0400 Body temperature 98.96 [degF] Brent Myron [facility] 02-18-2023 07:45-0400 Diastolic blood pressure 80 mm[Hg] Brent Myron [facility] 02-18-2023 07:45-0400 Heart rate 95 /min Brent Myron [facility] 02-18-2023 07:45-0400 Respiratory rate 16 /min Brent Sanches [facility] 02-18-2023 07:45-0400 SaO2% (BldA) [Mass fraction] 100 % Brent Sanches [facility] 02-18-2023 07:45-0400 Systolic blood pressure 153 mm[Hg] Brent Sanches [facility] 01-12-2023 09:49-0400 Body height 170.2 cm Tanvir Black MD Work Phone: [employer] 01-12-2023 09:49-0400 Body mass index (BMI) [Ratio] 27.28 kg/m2 Tanvir Black MD Work Phone: [employer] 01-12-2023 09:49-0400 Body temperature 96.6 [degF] Tanvir Black MD Work Phone: [employer] 01-12-2023 09:49-0400 Body weight 79.02 kg Tanvir Black MD Work Phone: [employer] 01-12-2023 09:49-0400 Diastolic blood pressure 56 mm[Hg] Tanvir Black MD Work Phone: [employer] 01-12-2023 09:49-0400 Heart rate 79 /min Tanvir Black MD Work Phone: [employer] 01-12-2023 09:49-0400 Respiratory rate 20 /min Tanvir Black MD Work Phone: [employer] 01-12-2023 09:49-0400 SaO2% (BldA) [Mass fraction] 100 % Tanvir Black MD Work Phone: [employer] 01-12-2023 09:49-0400 Systolic blood pressure 121 mm[Hg] Tanvir Black MD [facility] 01-12-2023 08:58-0400 Body mass index (BMI) [Ratio] 27.41 kg/m2 Marcello Ibanez MD Work Phone: [facility] 01-12-2023 08:58-0400 Body temperature 96.6 [degF] Marcello Ibanez MD Work Phone[facility] 01-12-2023 08:58-0400 Body weight 79.38 kg Marcello Ibanez MD Work Phone: [employer] 01-12-2023 08:58-0400 Diastolic blood pressure 56 mm[Hg] Marcello Ibanez MD [facility] Phone[facility] 01-12-2023 08:58-0400 Heart rate 79 /min Marcello Ibanez MD Work Phone: [employer] 01-12-2023 08:58-0400 Systolic blood pressure 121 mm[Hg] Marcello Ibanez MD Work Phone: [facility] 12-16-2022 09:49-0400 Body height 170.2 cm Dejuan Lechuga MD Work Phone: [facility] 12-16-2022 09:49-0400 Body mass index (BMI) [Ratio] 28.05 kg/m2 Dejuan Lechuga MD Work Phone: [facility] 12-16-2022 09:49-0400 Body weight 81.24 kg Dejuan Lechuga MD Work Phone: [facility] 12-16-2022 09:49-0400 Diastolic blood pressure 57 mm[Hg] Dejuan Lechuga MD Work Phone[facility] 12-16-2022 09:49-0400 Heart rate 85 /min Dejuan Lechuga MD Work Phone[facility] 12-16-2022 09:49-0400 SaO2% (BldA) [Mass fraction] 100 % Dejuan Lechuga MD Work Phone: [employer] 12-16-2022 09:49-0400 Systolic blood pressure 113 mm[Hg] Dejuan Lechuga MD Work Phone: [employer] 11-13-2022 11:23-0500 Body mass index (BMI) [Ratio] 26.63 kg/m2 Tanvir Black MD Work Phone: [employer] 11-13-2022 11:23-0500 Body temperature 98.6 [degF] Tanvir Black MD Work Phone: [employer] 11-13-2022 11:23-0500 Body weight 77.11 kg Tanvir Black MD Work Phone: [employer] 11-13-2022 11:23-0500 Diastolic blood pressure 62 mm[Hg] Tanvir Black MD Work Phone: [employer] 11-13-2022 11:23-0500 Heart rate 86 /min Tanvir Black MD Work Phone: [employer] 11-13-2022 11:23-0500 Respiratory rate 14 /min Tanvir Black MD Work Phone: [employer] 11-13-2022 11:23-0500 SaO2% (BldA) [Mass fraction] 100 % Tanvir Black MD Work Phone: [employer] 11-13-2022 11:23-0500 Systolic blood pressure 153 mm[Hg] Tanvir Black MD Work Phone: [employer] 10-27-2022 09:49-0500 Body mass index (BMI) [Ratio] 26.59 kg/m2 Marcello Ibanez MD Work Phone: [employer] 10-27-2022 09:49-0500 Body temperature 97.5 [degF] Marcello Ibanez MD Work Phone: [employer] 10-27-2022 09:49-0500 Body weight 77.02 kg Marcello Ibanez MD Work Phone: [employer] 10-27-2022 09:49-0500 Diastolic blood pressure 55 mm[Hg] Marcello Ibanez MD [facility] 10-27-2022 09:49-0500 Heart rate 84 /min Marcello Ibanez MD Work Phone[facility] 10-27-2022 09:49-0500 SaO2% (BldA) [Mass fraction] 100 % Marcello Ibanez MD Work Phone[facility] 10-27-2022 09:49-0500 Systolic blood pressure 128 mm[Hg] Marcello Ibanez MD Work Phone: [employer] 08-25-2022 13:44-0500 Body mass index (BMI) [Ratio] 26.78 kg/m2 Theo Burks MD Work Phone: [employer] 08-25-2022 13:44-0500 Body temperature 98.49 [degF] Theo Burks MD Work Phone: [employer] 08-25-2022 13:44-0500 Body weight 77.56 kg Theo Burks MD Work Phone: [employer] 08-25-2022 13:44-0500 Diastolic blood pressure 65 mm[Hg] Theo Burks MD Work Phone: [employer] 08-25-2022 13:44-0500 Heart rate 69 /min Theo Burks MD Work Phone: [employer] 08-25-2022 13:44-0500 Respiratory rate 18 /min Theo Burks MD Work Phone: [employer] 08-25-2022 13:44-0500 SaO2% (BldA) [Mass fraction] 99 % Theo Burks MD Work Phone: [employer] 08-25-2022 13:44-0500 Systolic blood pressure 132 mm[Hg] Theo Burks MD Work Phone: [employer] 08-25-2022 10:42-0500 Body mass index (BMI) [Ratio] 26.94 kg/m2 Abbey Alvarez MD Work Phone: [employer] 08-25-2022 10:42-0500 Body temperature 98.2 [degF] Abbey Alvarez MD Work Phone: [employer] 08-25-2022 10:42-0500 Body weight 78.02 kg Abbey Alvarez MD Work Phone: [employer] 08-25-2022 10:42-0500 Diastolic blood pressure 50 mm[Hg] Abbey Alvarez MD Work Phone: [employer] 08-25-2022 10:42-0500 Heart rate 82 /min Abbey Alvarez MD Work Phone: [employer] 08-25-2022 10:42-0500 Systolic blood pressure 129 mm[Hg] Abbey Alvarez MD Work Phone: [employer] 08-15-2022 15:50-0500 Heart rate 78 /min Ann-Marie Bonner MD Work Phone: [employer] 08-15-2022 15:50-0500 Respiratory rate 14 /min Ann-Marie Bonner MD Work Phone: [employer] 08-15-2022 15:50-0500 SaO2% (BldA) [Mass fraction] 98 % Ann-Marie Bonner MD Work Phone: [employer] 08-15-2022 12:51-0500 Body mass index (BMI) [Ratio] 20.52 kg/m2 Ann-Marie Bonner MD Work Phone: [employer] 08-15-2022 12:51-0500 Body temperature 98.49 [degF] Ann-Marie Bonner MD Work Phone: [employer] 08-15-2022 12:51-0500 Body weight 59.42 kg Ann-Marie Bonner MD Work Phone: [employer] 08-15-2022 12:51-0500 Diastolic blood pressure 70 mm[Hg] Ann-Marie Bonner MD Work Phone: [employer] 08-15-2022 12:51-0500 Systolic blood pressure 147 mm[Hg] Ann-Marie Bonner MD Work Phone: [employer] 08-15-2022 10:16-0500 Body mass index (BMI) [Ratio] 26.72 kg/m2 Nenita Franco MD Work Phone: [employer] 08-15-2022 10:16-0500 Body temperature 98.6 [degF] Nenita Franco MD Work Phone: [employer] 08-15-2022 10:16-0500 Body weight 77.38 kg Nenita Franco MD Work Phone: [employer] 08-15-2022 10:16-0500 Diastolic blood pressure 56 mm[Hg] Nenita Franco MD Work Phone: [employer] 08-15-2022 10:16-0500 Heart rate 85 /min Nenita Franco MD Work Phone: [employer] 08-15-2022 10:16-0500 Respiratory rate 18 /min Nenita Franco MD Work Phone: [employer] 08-15-2022 10:16-0500 SaO2% (BldA) [Mass fraction] 100 % Nenita Franco MD Work Phone: [employer] 08-15-2022 10:16-0500 Systolic blood pressure 136 mm[Hg] Nenita Franco MD [facility] Phone: [facility] 08-14-2022 13:12-0500 Diastolic blood pressure 60 mm[Hg] Saskia Madison APRN-DAYAMI Work Phone: [employer] 08-14-2022 13:12-0500 Systolic blood pressure 128 mm[Hg] Saskia Madison APRN-FIRE EXTINGUISHER TESTER Work Phone: [facility] 08-14-2022 13:10-0500 Body mass index (BMI) [Ratio] 27.1 kg/m2 Saskia Madison APRN-DAYAMI Work Phone: [employer] 08-14-2022 13:10-0500 Body temperature 98.2 [degF] Saskia Madison APRN-FIRE EXTINGUISHER TESTER Work Phone: [facility] 08-14-2022 13:10-0500 Body weight 78.47 kg Saskia Madison APRN-FIRE EXTINGUISHER TESTER Work Phone: [facility] 08-14-2022 13:10-0500 Heart rate 84 /min Saskia Madison APRN-FIRE EXTINGUISHER TESTER Work Phone: [employer] 08-14-2022 11:51-0500 Body height 170.2 cm Tanvir Black MD Work Phone: [employer] 08-14-2022 11:51-0500 Body mass index (BMI) [Ratio] 26.78 kg/m2 Tanvir Black MD Work Phone: [employer] 08-14-2022 11:51-0500 Body temperature 99.19 [degF] Tanvir Black MD Work Phone: [employer] 08-14-2022 11:51-0500 Body weight 77.56 kg Tanvir Black MD Work Phone: [employer] 08-14-2022 11:51-0500 Diastolic blood pressure 60 mm[Hg] Tanvir Black MD Work Phone: [employer] 08-14-2022 11:51-0500 Heart rate 90 /min Tanvir Black MD Work Phone: [employer] 08-14-2022 11:51-0500 Respiratory rate 14 /min Tanvir Black MD Work Phone: [employer] 08-14-2022 11:51-0500 SaO2% (BldA) [Mass fraction] 100 % Tanvir Black MD Work Phone: [employer] 08-14-2022 11:51-0500 Systolic blood pressure 141 mm[Hg] Tanvir Black MD Work Phone: [employer] 05-06-2022 10:03-0400 Body height 170.2 cm Tanvir Black MD Work Phone: [employer] 05-06-2022 10:03-0400 Body mass index (BMI) [Ratio] 26.78 kg/m2 Tanvir Black MD Work Phone: [employer] 05-06-2022 10:03-0400 Body temperature 98.4 [degF] Tanvir Black MD Work Phone: [employer] 05-06-2022 10:03-0400 Body weight 77.56 kg Tanvir Black MD Work Phone: [employer] 05-06-2022 10:03-0400 Diastolic blood pressure 70 mm[Hg] Tanvir Black MD Work Phone: [employer] 05-06-2022 10:03-0400 Heart rate 75 /min Tanvir Black MD Work Phone: [employer] 05-06-2022 10:03-0400 Respiratory rate 16 /min Tanvir Black MD Work Phone: [employer] 05-06-2022 10:03-0400 SaO2% (BldA) [Mass fraction] 100 % Tanvir Black MD Work Phone: [employer] 05-06-2022 10:03-0400 Systolic blood pressure 137 mm[Hg] Tanvir Black MD Work Phone: [employer] 03-13-2022 11:39-0400 Body mass index (BMI) [Ratio] 25.84 kg/m2 Tanvir Black MD Work Phone: [employer] 03-13-2022 11:39-0400 Body temperature 98.49 [degF] Tanvir Black MD Work Phone: [employer] 03-13-2022 11:39-0400 Body weight 74.84 kg Tanvir Black MD Work Phone: [employer] 03-13-2022 11:39-0400 Diastolic blood pressure 69 mm[Hg] Tanvir Black MD Work Phone: [facility] 03-13-2022 11:39-0400 Heart rate 85 /min Tanvir Black MD Work Phone: [facility] 03-13-2022 11:39-0400 Respiratory rate 14 /min Tanvir Black MD Work Phone: [facility] 03-13-2022 11:39-0400 SaO2% (BldA) [Mass fraction] 100 % Tanvir Black MD Work Phone: [facility] 03-13-2022 11:39-0400 Systolic blood pressure 137 mm[Hg] Tanvir Black MD Work Phone: [facility] 02-17-2022 16:07-0400 Diastolic blood pressure 76 mm[Hg] [facility] 02-17-2022 16:07-0400 Heart rate 84 /min [facility] 02-17-2022 16:07-0400 Mean blood pressure 94 mm[Hg] [facility] 02-17-2022 16:07-0400 Respiratory rate 18 /min [facility] 02-17-2022 16:07-0400 SaO2% (BldA) [Mass fraction] 98 % [facility] 02-17-2022 16:07-0400 Systolic blood pressure 129 mm[Hg] [facility] 02-17-2022 15:18-0400 Diastolic blood pressure 75 mm[Hg] [facility] 02-17-2022 15:18-0400 Heart rate 79 /min [facility] 02-17-2022 15:18-0400 Mean blood pressure 92 mm[Hg] [facility] 02-17-2022 15:18-0400 Respiratory rate 16 /min [facility] 02-17-2022 15:18-0400 SaO2% (BldA) [Mass fraction] 99 % [facility] 02-17-2022 15:18-0400 Systolic blood pressure 126 mm[Hg] [facility] 02-17-2022 14:58-0400 Diastolic blood pressure 76 mm[Hg] [facility] 02-17-2022 14:58-0400 Heart rate 79 /min [facility] 02-17-2022 14:58-0400 Mean blood pressure 99 mm[Hg] [facility] 02-17-2022 14:58-0400 Respiratory rate 18 /min [facility] 02-17-2022 14:58-0400 SaO2% (BldA) [Mass fraction] 100 % [facility] 02-17-2022 14:58-0400 Systolic blood pressure 144 mm[Hg] [facility] 02-17-2022 12:30-0400 Body temperature 98.24 [degF] [facility] 02-17-2022 12:30-0400 Heart rate 101 /min [facility] 02-17-2022 12:30-0400 Respiratory rate 18 /min [facility] 02-11-2022 10:22-0400 Body height 170.2 cm Tanvir Black MD Work Phone: [facility] 02-11-2022 10:22-0400 Body mass index (BMI) [Ratio] 26.16 kg/m2 Tanvir Black MD Work Phone: [facility] 02-11-2022 10:22-0400 Body temperature 98.2 [degF] Tanvir Black MD Work Phone[facility] 02-11-2022 10:22-0400 Body weight 75.75 kg Tanvir Black MD Work Phone[facility] 02-11-2022 10:22-0400 Diastolic blood pressure 81 mm[Hg] Tanvir Black MD Work Phone: [employer] 02-11-2022 10:22-0400 Heart rate 103 /min Tanvir Black MD Work Phone: [employer] 02-11-2022 10:22-0400 Respiratory rate 16 /min Tanvir Black MD Work Phone: [employer] 02-11-2022 10:22-0400 SaO2% (BldA) [Mass fraction] 100 % Tanvir Black MD Work Phone: [employer] 02-11-2022 10:22-0400 Systolic blood pressure 157 mm[Hg] Tanvir Black MD Work Phone: [employer] 01-17-2022 14:20-0400 Body temperature 98.29 [degF] Francisco Marino MD Work Phone: [employer] 01-17-2022 14:20-0400 Diastolic blood pressure 56 mm[Hg] Francisco Marino MD Work Phone: [employer] 01-17-2022 14:20-0400 Heart rate 83 /min Francisco Marino MD Work Phone: [employer] 01-17-2022 14:20-0400 Respiratory rate 18 /min Francisco Marino MD Work Phone: [employer] 01-17-2022 14:20-0400 SaO2% (BldA) [Mass fraction] 100 % Francisco Marino MD Work Phone: [employer] 01-17-2022 14:20-0400 Systolic blood pressure 125 mm[Hg] Francisco Marino MD Work Phone: [employer] 01-17-2022 06:00-0400 Body mass index (BMI) [Ratio] 22.77 kg/m2 Francisco Marino MD Work Phone: [employer] 01-17-2022 06:00-0400 Body weight 65.95 kg Francisco Marino MD Work Phone: [facility] 01-10-2022 18:36-0400 Heart rate 96 /min Francisco Marino MD Work Phone: [facility] 01-08-2022 21:47-0400 Heart rate 76 /min Francisco Marino MD Work Phone: [facility] 01-08-2022 14:00-0400 Hourly Rounding Aldair Ila [facility] 01-08-2022 14:00-0400 Promise to Return Aldair Ila [facility] 01-08-2022 14:00-0400 SaO2% (BldA) [Mass fraction] 100 % Aldair Ila [facility] 01-08-2022 08:00-0400 Body height 170.2 cm Francisco Marino MD Work Phone: [facility] 01-08-2022 05:00-0400 Diastolic blood pressure 70 mm[Hg] Aldair Ila [facility] 01-08-2022 05:00-0400 Heart rate 87 /min Aldair Ila [facility] 01-08-2022 05:00-0400 Mean blood pressure 91 mm[Hg] Aldair Ila [facility] 01-08-2022 05:00-0400 Respiratory rate 18 /min Aldair Ila [facility] 01-08-2022 05:00-0400 Systolic blood pressure 134 mm[Hg] Aldair Ila [facility] 01-08-2022 04:00-0400 Body temperature 98.96 [degF] Aldair Ila [facility] 01-08-2022 04:00-0400 Diastolic blood pressure 74 mm[Hg] Aldair Ila [facility] 01-08-2022 04:00-0400 Heart rate 96 /min Aldair Ila [facility] 01-08-2022 04:00-0400 Mean blood pressure 90 mm[Hg] Aldair Ila [facility] 01-08-2022 04:00-0400 Respiratory rate 20 /min Aldair Ila [facility] 01-08-2022 04:00-0400 SaO2% (BldA) [Mass fraction] 97 % Aldair Ila [facility] 01-08-2022 04:00-0400 Systolic blood pressure 122 mm[Hg] Aldair Ila [facility] 01-08-2022 03:00-0400 Diastolic blood pressure 72 mm[Hg] Aldair Ila [facility] 01-08-2022 03:00-0400 Heart rate 80 /min Aldair Ila [facility] 01-08-2022 03:00-0400 SaO2% (BldA) [Mass fraction] 98 % Aldair Ila [facility] 01-08-2022 03:00-0400 Systolic blood pressure 126 mm[Hg] Aldair Ila [facility] 01-08-2022 00:00-0400 Body temperature 98.42 [degF] Aldair Ila [facility] 01-07-2022 20:30-0400 Body temperature 98.06 [degF] Aldair Ila [facility] 01-07-2022 20:00-0400 Blood Pressure Location Aldair Ila [facility] 01-07-2022 19:13-0400 Heart rate 112 /min Aldair Thorpe [facility] 01-07-2022 19:00-0400 Blood Pressure Location Aldair Thorpe [facility] 01-07-2022 18:00-0400 Blood Pressure Location Aldair Thorpe [facility] 01-07-2022 17:04-0400 Heart rate 110 /min Aldairjaden Thorpe [facility] 01-07-2022 14:32-0400 [facility] 117 [facility] Encounters Encounter Date Encounter Type Care Provider Facility Start: 10-08-2023 End: 10-09-2023 ambulatory Lisa Lopez Facility:[facility] Start: 10-01-2023 End: 10-01-2023 Subsequent hospital visit by physician Tanvir Black MD Work Phone: [facility] Comment on above: 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) Start: 10-01-2023 End: 10-02-2023 ambulatory UNKNOWN PROVIDER Facility:[facility] Start: 10-01-2023 End: 10-01-2023 Patient encounter procedure Lisa Lopez [facility] Start: 09-30-2023 End: 10-01-2023 ambulatory Mario Evans [place] Start: 09-27-2023 Letter encounter Theo bright MD Work Phone: [facility] Start: 09-21-2023 End: 09-22-2023 ambulatory Keith Patricia Facility:[facility] Start: 09-21-2023 ambulatory Axel Danitzala Facilit y:[facility] Start: 09-21-2023 End: 09-21-2023 Patient encounter procedure Keith Patricia [facility] Start: 09-03-2023 End: 09-04-2023 ambulatory Martin Talal Bryannamini Facility[place] Start: 09-03-2023 End: 09-03-2023 Patient encounter procedure Mario Duenasal Bryannamini [facility] Start: 09-01-2023 End: 09-02-2023 ambulatory Martin Talal Bryannamini Facility:[facility] Start: 09-01-2023 End: 09-01-2023 Patient encounter procedure Mario Talal Bryannamini [facility] Start: 08-26-2023 End: 08-27-2023 ambulatory Lisa Lopez Facility:[facility] Start: 08-26-2023 End: 08-26-2023 Patient encounter procedure Lisa Lopez [facility] Start: 08-25-2023 Refill Tanvir Black MD Work Phone: [facility] Comment on above: Refill Start: 08-06-2023 End: 08-07-2023 ambulatory Teddy Hitchcock [place] Start: 08-06-2023 End: 08-06-2023 Patient encounter procedure Teddy Hitchcock [facility] Start: 08-03-2023 ambulatory Lisa Lopez Facil ity[facility] Start: 07-27-2023 ambulatory Teddy Hitchcock Facility:[facility] Start: 07-24-2023 End: 07-25-2023 ambulatory Lisa Lopez Facility[facility] Start: 07-24-2023 End: 07-25-2023 ambulatory Lisa Lopez Facility:[facility] Start: 07-24-2023 End: 07-24-2023 Lab Drop off Lisa Lopez [facility] Start: 07-24-2023 End: 07-24-2023 Patient encounter procedure Lisa Nadia Lopez [facility] Start: 07-23-2023 End: 07-24-2023 ambulatory Teddy Hitchcock [place] Start: 07-23-2023 End: 07-23-2023 Patient encounter procedure Teddy Hitchcock [facility] Start: 07-20-2023 E-mail encounter fro m caregiver Tanvir Black MD Work Phone: [facility] Start: 07-20-2023 Patient encounter procedure Tanvir Black MD Work Phone: [facility] Comment on above: Had to reschedule ap pointment Start: 07-16-2023 ambulatory Teddy Hitchcock Facility:[facility] Start: 07-16-2023 End: 07-17-2023 ambulatory Teddy Hitchcock Facility[place] Start: 07-16-2023 End: 07-16-2023 Patient encounter procedure Teddy Hitchcock [facility] Start: 07-13-2023 Refill Marcello Ibanez MD Work Phone: [facility] Comment on above: Refill Start: 07-11-2023 Refill Tanvir Black MD Work Phone: [facility] Comment on above: Refill Start: 07-06-2023 End: 07-07-2023 Pre-admission assessment Teddy Hitchcock [facility] Start: 06-25-2023 End: 06-26-2023 ambulatory Teddy Gauthiery Facility[place] Start: 06-25-2023 End: 06-25-2023 Patient encounter procedure Teddy Gauthiery [facility] Start: 06-19-2023 End: 06-19-2023 Emergency department patient visit Teddy Luna Facility[place] Start: 06-19-2023 End: 06-19-2023 Emergency department patient visit Teddy Luna [facility] Start: 06-18-2023 End: 06-19-2023 ambulatory Teddy Trinidad. Dishay Facility[place] Start: 06-18-2023 End: 06-18-2023 Patient encounter procedure Teddy Gauthiery [facility] Start: 06-11-2023 End: 06-12-2023 ambulatory Teddy Trinidad. Moyanicky Facility[place] Start: 06-04-2023 End: 06-05-2023 ambulatory Teddy E. Moyanicky Facility[place] Start: 06-04-2023 End: 06-04-2023 Patient encounter procedure Teddy Trinidad. Moyanicky [facility] Start: 05-25-2023 End: 05-26-2023 ambulatory Teddy Trinidad. Moyanicky Facility[place] Start: 05-25-2023 End: 05-25-2023 Patient encounter procedure Teddy E. Mourany [facility] Start: 05-14-2023 End: 05-15-2023 ambulatory Teddy E. Mourany Facility[place] Start: 05-14-2023 End: 05-14-2023 Patient encounter procedure Teddy Rodarte Moyanicky [facility] Start: 05-08-2023 End: 05-09-2023 ambulatory Teddy Hitchcock Facility[place] Start: 05-07-2023 End: 05-08-2023 ambulatory Teddy Hitchcock Facility[place] Start: 05-07-2023 End: 05-07-2023 Patient encounter procedure Teddy Hitchcock [facility] Start: 04-30-2023 End: 05-02-2023 ambulatory Teddy Hitchcock Facility[place] Start: 04-30-2023 End: 05-01-2023 Pre-admission assessment Teddy Hitchcock [facility] Start: 04-24-2023 End: 04-24-2023 ambulatory Jarrod Eddy Other [employer] Other Start: 04-24-2023 Office outpatient ne w 45 minutes Jarrod Eddy [facility] Vascular Surgery Start: 04-24-2023 Refill Tanvir Black MD Work Phone: [facility] Comment on above: Refill Start: 04-23-2023 End: 04-24-2023 ambulatory Teddy Hitchcock Facility[place] Start: 04-23-2023 End: 04-23-2023 Patient encounter procedure Teddy Hitchcock [facility] Start: 04-22-2023 ambulatory Tanvir Black MD Work Phone: [facility] Comment on above: lab results Start: 04-22-2023 E-mail encounter fro m caregiver Tanvir Black MD [facility] Start: 04-21-2023 End: 04-22-2023 ambulatory UNKNOWN PROVIDER Facility:[facility] Start: 04-21-2023 Encounter for other specified special examinations UNKNOWN PROVIDER [facility] Start: 04-21-2023 End: 04-21-2023 Patient encounter status Tanvir Black MD Work Phone: [facility] Start: 04-21-2023 End: 04-21-2023 Subsequent hospital visit by physician Monie Hernandez RN [facility] Comment on above: Dx: Multiple myeloma , remission status unspecified (HCC) (Primary Dx) 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) Start: 04-16-2023 End: 04-17-2023 ambulatory Teddy Hitchcock Facility[place] Start: 04-16-2023 End: 04-16-2023 Patient encounter procedure Teddy Hitchcock [facility] Start: 04-13-2023 End: 04-14-2023 ambulatory Teddy Hitchcock Facility[place] Start: 04-13-2023 End: 04-13-2023 Patient encounter procedure Teddy Hitchcock [facility] Start: 03-30-2023 End: 03-31-2023 ambulatory Teddy Hitchcock Facility[facility] Start: 03-22-2023 End: 03-22-2023 Emergency department patient visit Martin Reese Facility[place] Start: 03-22-2023 End: 03-22-2023 Emergency department patient visit Martin Reese [facility] Start: 03-22-2023 Letter encounter Tanvir Black MD Work Phone: [facility] Comment on above: Refill Start: 03-16-2023 End: 03-17-2023 ambulatory Teddy Hitchcock Facility[place] Start: 03-16-2023 End: 03-16-2023 Patient encounter procedure Teddy Hitchcock [facility] Start: 03-06-2023 Refill Theo wilder MD Work Phone: [facility] Comment on above: Refill Prior Authorization Start: 03-05-2023 End: 03-06-2023 ambulatory Teddy Hitchcock Facility[place] Start: 03-05-2023 End: 03-05-2023 Patient encounter procedure Teddy TrinidadSarah Osbaldoyanickdamaos [facility] Start: 02-27-2023 Telephone encounter Nighat rai HEAD WAITER/WAITRESS-FIRE EXTINGUISHER TESTER Work Phone: [facility] Comment on above: Left Message To Call Back Start: 02-18-2023 End: 02-18-2023 Emergency department patient visit Brent Sanches Facility:[facility] Start: 02-18-2023 End: 02-18-2023 Emergency department patient visit Brent Sanches [facility] Start: 02-09-2023 Refill Dejuan Lechuga MD Work Phone: [facility] Comment on above: Refill Start: 01-20-2023 ambulatory UNKNOWN PROVIDER Facili ty:[facility] Start: 01-12-2023 End: 01-13-2023 ambulatory UNKNOWN PROVIDER Facility:[facility] Start: 01-12-2023 End: 01-12-2023 ambulatory UNKNOWN PROVIDER Facility:[facility] Start: 01-12-2023 End: 01-12-2023 Subsequent hospital visit by physician Meka Lucas RN [facility] Comment on above: 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) Start: 01-12-2023 End: 01-12-2023 Office outpatient visit 25 minutes Marcello Ibanez MD Work Phone: [facility] Comment on above: Liver fibrosis (Prim tanner Dx); Alcohol use disorder in remission; Elevated liver enzymes; Jaundice; Body mass index (BMI) 27.0-27.9, adult Start: 12-20-2022 Letter encounter Theo bright MD Work Phone: [facility] Start: 12-16-2022 End: 12-16-2022 ambulatory UNKNOWN PROVIDER Facility:[facility] Start: 12-16-2022 End: 12-16-2022 Office outpatient visit 15 minutes Dejuan Lechuga MD Work Phone: [facility] Comment on above: Rib pain (Primary Dx ); Alcoholic cirrhosis of liver without ascites (HCC); Body mass index (BMI) 28.0-28.9, adult Start: 12-15-2022 End: 12-15-2022 Phys/qhp telephone evaluation 11-20 min Theo Burks MD Work Phone: [facility] Comment on above: Rib pain (Primary Dx ) Start: 12-15-2022 End: 12-19-2022 ambulatory UNKNOWN PROVIDER Facility:[facility] Start: 12-15-2022 Letter encounter Theo bright MD Work Phone: [facility] Start: 12-15-2022 Telephone encounter Theo Burks MD Work Phone: [facility] Start: 12-03-2022 Refill Marcello Ibanez MD Work Phone: [facility] Comment on above: Refill Start: 11-13-2022 End: 11-14-2022 ambulatory UNKNOWN PROVIDER Facility:[facility] Start: 11-13-2022 End: 11-13-2022 Subsequent hospital visit by physician Tanvir Black MD Work Phone: [facility] Comment on above: 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) Start: 10-27-2022 Letter encounter Theo bright MD Work Phone: [facility] Gastroenterology Start: 10-27-2022 End: 11-03-2022 ambulatory UNKNOWN PROVIDER Facility:[facility] Start: 10-27-2022 End: 11-03-2022 Office outpatient visit 25 minutes Marcello Ibanez MD Work Phone: [facility] Comment on above: Alcoholic cirrhosis of liver without ascites (HCC) (Primary Dx); Nausea Alcoholic fatty live r (Primary Dx); Nausea; Hyperbilirubinemia; Alcoholic hepatitis, unspecified whether ascites present Alcoholic fatty live r (Primary Dx); Nausea; Hyperbilirubinemia; Alcoholic hepatitis, unspecified whether ascites present; Body mass index (BMI) 26.0-26.9, adult Start: 10-01-2022 Refill Abbey Love Work Phone: [facility] Comment on above: Refill I have a few questio ns Start: 09-21-2022 Letter encounter [facility] bright MD [facility] Phone[facility] Start: 09-20-2022 Telephone encounter Tanika lange RN [facility] Comment on above: Cancel Appointment Start: 09-16-2022 Orders Only Saskia Madison HEAD WAITER/WAITRESS-FIRE EXTINGUISHER TESTER Work Phone: [facility] Start: 09-15-2022 Orders Only Samantha Stauffer HEAD WAITER/WAITRESS-FIRE EXTINGUISHER TESTER Work Phone: [facility] Gastroenterology Start: 08-29-2022 End: 08-29-2022 Phys/qhp telephone evaluation 5-10 min Theo Burks MD Work Phone: [facility] Comment on above: Cellulitis, unspecif ied cellulitis site (Primary Dx); Muscle soreness Start: 08-25-2022 End: 08-25-2022 Orders Only Abbey Alvarez MD Work Phone: [facility] Gastroenterology Comment on above: Arrived Start: 08-25-2022 End: 08-26-2022 Office outpatient visit 25 minutes Abbey Alvarez MD Work Phone: [facility] Comment on above: Alcoholic hepatitis without [...] adult Start: 08-22-2022 ambulatory Jim Hill RN [facility] Comment on above: internal med request Start: 08-22-2022 E-mail encounter giana m caregiver Jim Hill RN [facility] Start: 08-21-2022 Letter encounter [facility] [place] [facility] Start: 08-16-2022 Orders Only Tanvir Black MD Work Phone: [facility] Start: 08-15-2022 ambulatory Tanvir Black MD Work Phone: [facility] Comment on above: Severe pain Start: 08-15-2022 E-mail encounter giana m caregiver Tanvir Black MD Work Phone: [facility] Start: 08-15-2022 End: 08-15-2022 Emergency department patient visit Ann-Marie Bonner MD Work Phone: [facility] Emergency Medicine Comment on above: Leg/thigh symptoms ( Pt states has infection in R leg x 4 days, seen yesterday for same) Start: 08-15-2022 End: 08-15-2022 Office outpatient new 30 minutes Nenita Franco MD Work Phone: [facility] Comment on above: Cellulitis, unspecif ied cellulitis site (Primary Dx); Body mass index (BMI) 26.0-26.9, adult Start: 08-14-2022 [facility] Start: 08-14-2022 End: 08-14-2022 Office consultation new/estab patient 60 min Saskia SILVESTRE Work Phone: [facility] Comment on above: Alcoholic cirrhosis, unspecified whether ascites present (HCC) (Primary Dx); Iron deficiency anemia, unspecified iron deficiency anemia type; Alcoholic cirrhosis of liver without ascites (HCC); Body mass index (BMI) 27.0-27.9, adult Start: 08-14-2022 End: 08-14-2022 Subsequent hospital visit by physician Jasmyne Grimaldo RN [facility] Comment on above: Dx: Thrombocytopenia (HCC) (Primary Dx) Start: 08-14-2022 End: 08-14-2022 Office outpatient visit 40 minutes Tanvir Black MD Work Phone: [facility] Comment on above: 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) Start: 08-08-2022 ambulatory Tanvir Black MD Work Phone: [facility] Comment on above: Question Start: 08-08-2022 E-mail encounter fro m caregiver Tanvir Black MD Work Phone: [facility] Start: 05-06-2022 End: 05-06-2022 Office outpatient visit 40 minutes Tanvir Black MD Work Phone: [facility] Comment on above: 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) Start: 05-06-2022 End: 05-06-2022 Subsequent hospital visit by physician Leslie Canela RN Work Phone: [facility] Comment on above: 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) Start: 05-05-2022 Letter encounter [facility] Start: 03-13-2022 Letter encounter [facility] Oncology [facility] Start: 03-13-2022 End: 03-13-2022 Subsequent hospital visit by physician Rosita Le RN Work Phone: [facility] Comment on above: 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) Start: 03-13-2022 End: 03-13-2022 Office outpatient visit 40 minutes Tanvir Black MD Work Phone: [facility] Comment on above: 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) Start: 02-17-2022 End: 02-17-2022 Emergency department patient visit [facility] Start: 02-11-2022 Telephone encounter Kulwinder Zimmerman ltesz PharmD Work Phone: [facility] Comment on above: Specialty Pharmacy R eferral (MMF referral- no PA needed ) Start: 02-11-2022 End: 02-11-2022 Office outpatient visit 5 minutes Cyn Hopper RN [facility] Comment on above: 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) Start: 02-11-2022 End: 02-11-2022 Subsequent hospital visit by physician Tanvir Black MD Work Phone: [facility] Comment on above: 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) Start: 01-21-2022 Telephone encounter Liseth laguna PharmD [facility] Comment on above: Prior Authorization Start: 01-08-2022 End: 01-17-2022 Evaluation and management of inpatient Francisco Marino MD Work Phone: Inpatient 10B Start: 01-07-2022 End: 01-08-2022 Evaluation and management of inpatient Aldair Thorpe [facility] Procedures Date Procedure Procedure Detail Performing Clinician Start: 09-30-2023 Esophagogastroduodenoscopy Lisa rosales Comment on above: 3 large esophageal varices banded, PHG Start: 04-21-2023 Hepatic function panel Tanvir Black MD Work Phone: Start: 04-21-2023 Lactate dehydrogenase ldh Tanvir Black MD Work Phone: Start: 01-12-2023 Blood count complete automated Marcello tripp MD Work Phone: Start: 01-12-2023 Hepatic function panel Marcello Ibanez MD Work Phone: Start: 11-13-2022 Alpha-fetoprotein serum Saskia Madison HEAD WAITER/WAITRESS-FIRE EXTINGUISHER TESTER Work Phone: Start: 11-13-2022 Antihuman globulin direct each antiserum Tanvir Black MD Work Phone: Start: 08-25-2022 Assay of ferritin Abbey Alvarez MD Work Phone: Start: 08-25-2022 Hepatic function panel Abbey Alvarez MD Work Phone: Start: 08-15-2022 Radiologic exam knee complete 4/more views Dante Marcelino MD Work Phone: Start: 08-14-2022 Urnls dip stick/tablet rgnt auto w/o microscopy Tanvir Black MD [...] 01-17-2022 End: 01-17-2022 Lactate dehydrogenase ldh Abhinav De La Vega DO Work Phone: Start: 01-16-2022 Glucose blood reagent strip Afua rader MD Work Phone: Start: 01-16-2022 Glucose blood reagent strip Afua rader MD Work Phone: Start: 01-16-2022 Glucose blood reagent strip Afua rader MD Work Phone: Start: 01-16-2022 Glucose blood reagent strip Afua rader MD Work Phone: Start: 01-16-2022 Hepatic function panel Ivy Chua MD Work Phone: Start: 01-16-2022 Lactate dehydrogenase ldh Christopher De La Vega DO Work Phone: Start: 01-15-2022 Glucose blood reagent strip Leon ordoñez MD Work Phone: Start: 01-15-2022 Glucose blood reagent strip Leon ordoñez MD Work Phone: Start: 01-15-2022 Glucose blood reagent strip Leon ordoñez MD Work Phone: Start: 01-15-2022 Hepatic function panel Ivy Chua MD Work Phone: Start: 01-15-2022 End: 01-15-2022 Lactate dehydrogenase ldh Christopher De La Vega DO Work Phone: Start: 01-14-2022 Glucose blood reagent strip Leon ordoñez MD Work Phone: Start: 01-14-2022 Glucose blood reagent strip Leon ordoñez MD Work Phone: Start: 01-14-2022 Hepatic function panel Ivy Chua MD Work Phone: Start: 01-14-2022 End: 01-14-2022 Lactate dehydrogenase ldh Christopher De La Vega DO Work Phone: Start: 01-13-2022 Glucose blood reagent strip Leon ordoñez MD Work Phone: Start: 01-13-2022 Glucose blood reagent strip Leon ordoñez MD Work Phone: Start: 01-13-2022 Glucose blood reagent strip Leon ordoñez MD Work Phone: Start: 01-13-2022 Hepatic function panel Ivy Chua MD Work Phone: Start: 01-13-2022 End: 01-13-2022 Lactate dehydrogenase ldh Abhinav De La Vega DO Work Phone: Start: 01-12-2022 Glucose blood reagent strip Leon ordoñez MD Work Phone: Start: 01-12-2022 Blood count smear mcrscp w/mnl difrntl wbc count Ivy Chua MD Work Phone: Start: 01-12-2022 Hepatic function panel Ivy Chua MD Work Phone: Start: 01-12-2022 End: 01-12-2022 Lactate dehydrogenase ldh Abhinav De La Vega DO Work Phone: Start: 01-11-2022 Glucose blood reagent strip Leon ordoñez MD Work Phone: Start: 01-11-2022 Blood typing serologic abo Abhinav De La Vega DO Work Phone: Start: 01-11-2022 Blood count smear mcrscp w/mnl difrntl wbc count Ivy Chua MD Work Phone: Start: 01-11-2022 Blood typing, ABO, Rho(D) and RBC antibody screening Abhinav De La Vega DO Work Phone: Start: 01-11-2022 Hepatic function panel Ivy Chua MD Work Phone: Start: 01-11-2022 Lactate dehydrogenase ldh Abhinav De La Vega DO Work Phone: Start: 01-10-2022 End: 01-10-2022 Assay of magnesium Abhinav De La Vega DO Work Phone: Start: 01-10-2022 Ecg routine ecg w/least 12 lds trcg only w/o i&r To Be Assigned Start: 01-10-2022 Dup-scan artl virgilio abdl/pel/scrot&/rpr orgn com Abhinav De La Vega DO Work Phone: Start: 01-10-2022 Clotting factor viii ahg 1 stage Scott dickerson De La Vega DO Work Phone: Start: 01-10-2022 Us abdominal real time w/image limited Salina Franks MD Work Phone: Start: 01-10-2022 Creatine kinase total Mateo eBty MULTANI Work Phone: Start: 01-10-2022 Hepatic function [...] MD Work Phone: Start: 01-09-2022 Culture bacterial blood aerobic w/id isolates Ivy Chua MD Work Phone: Start: 01-09-2022 Radiologic exam abdomen 1 view Ivy escudero MD Work Phone: Start: 01-09-2022 RED BLOOD CELL COMPONENT Franrieileen Winston MD Work Phone: Start: 01-09-2022 Creatine kinase total Ivy Chua MD Work Phone: Start: 01-09-2022 Hepatic function panel Ivy Chua MD Work Phone: Start: 01-08-2022 Blood count smear mcrscp w/mnl difrntl wbc count Ivy Chua MD Work Phone: Start: 01-08-2022 Radex orbits complete minimum 4 views Ivy Chua MD Work Phone: Start: 01-08-2022 End: 01-08-2022 Us abdominal real time w/image limited Ivy Chua MD Work Phone: Start: 01-08-2022 Drug screen analgesics non-opioid 1 or 2 Francisco Marino MD Work Phone: Start: 01-08-2022 Iadna hepatitis c quant & reverse cabin equipment supervisor Ivy Chua MD Work Phone: Start: 01-08-2022 Lipoprotein dir noelle high density cholesterol Salina Franks MD Work Phone: Start: 01-08-2022 CT BODY IMAGE IMPORT(CHRISTIANO) Ivy Love Work Phone: Start: 01-08-2022 XRAY CHEST IMAGE IMPORT(CHRISTIANO) Ivy trinidad MD Work Phone: Start: 01-08-2022 End: 01-08-2022 Radex humerus minimum 2 views Robert Ted davidson MD Start: 01-08-2022 End: 01-08-2022 Creatine kinase total Ivy Chua MD Work Phone: Start: 01-08-2022 Hepatic function panel Ivy Chua MD Work Phone: Start: 01-08-2022 Ecg routine ecg w/least 12 lds trcg only w/o i&r Darion Blanchard DO Work Phone: Incision AND drainage Heladio Lopez Jaw region structure (body structure) Aldair Thorpe Plan of Treatment Date Care Activity Detail Author Start: 2034 Varicella-zoster vaccine (product) [facility] Start: 01-08-2027 Lipid panel [facility] Start: 10-28-2023 ambulatory Ambulatory Facility:[facility] Start: 10-01-2023 End: 10-01-2023 Patient encounter procedure 10/01/2023 8:30 AM EST Appointment [facility] [address] [place] [address] Tanvir Black MD [address] [place] [address] [facility] Start: 07-27-2023 End: 07-27-2023 Patient encounter procedure 07/27/2023 10:00 AM EST Office Visit [facility] [address] [place] [address] Marcello Ibanez MD [address] [place] [address] [facility] Start: 07-20-2023 End: 07-20-2023 Patient encounter procedure [facility] Start: 06-07-2023 Influenza vaccination Influenza Vaccine (#1) [facility] Start: 05-16-2023 Fluid sample AFP level [facility] Start: 05-08-2023 Influenza vaccination Influenza Vaccine (#1) [facility] Start: 04-21-2023 End: 04-21-2023 Patient encounter procedure [facility] Start: 03-20-2023 End: 03-20-2023 Patient encounter procedure [facility] Start: 03-03-2023 End: 03-03-2023 Telemedicine consultation with patient 03/03/2023 11:20 AM EDT Telemedicine [facility] [id number] [id number] Nighat Mahmood, LIBAN-FIRE EXTINGUISHER TESTER [address] [place] [id number] [facility] Start: 01-20-2023 End: 01-20-2023 Patient encounter procedure 01/20/2023 Appointment Radiology [facility] Start: 01-12-2023 End: 01-12-2023 Patient encounter procedure [facility] Start: 12-16-2022 End: 12-16-2022 Patient encounter procedure 12/16/2022 Office Visit Family Practice Dejuan Lechuga MD [address] [place] [address] [facility] Medicine Start: 12-15-2022 End: 12-15-2022 Telemedicine consultation with patient 12/15/2022 Telemedicine Family Practice Theo Burks MD [address] [facility] [address] [place] [address] Arrived [facility] Comment on above: Arrived Start: 12-15-2022 End: 12-16-2023 XR Ribs - left Views and Chest PA XR RIBS LT UNILAT W/PA CHEST Imaging Routine Rib pain Expected: 12/15/2022, Expires: 12/16/2023 [facility] Work Phone: Comment on above: Expected: 12/15/2022, Expires: 4 Start: 11-13-2022 End: 11-13-2022 Patient encounter procedure [facility] Start: 10-27-2022 End: 10-27-2023 RF Guidance for transjugular biopsy of Liver-- W contrast IV [facility] Comment on above: Expected: 10/27/2022, Expires: 4 Start: 10-27-2022 End: 10-27-2022 Patient encounter procedure 10/27/2022 Office Visit Gastroenterology Abbey Alvarez MD [address] [facility] [address] [place] [address] [facility] Start: 09-22-2022 End: 09-22-2022 Admission to same day surgery center [facility] Comment on above: [...] by physician 09/22/2022 Hospital Encounter Gastroenterology Claire Avila MD [address] [facility] [address] [address] [facility] Start: 09-19-2022 End: 09-19-2022 Patient encounter procedure 09/19/2022 Office Visit Gastroenterology Saskia Madison, LIBAN-DAYAMI [address] [place] [address] [facility] Start: 09-16-2022 End: 10-17-2022 SARS-CoV-2 (COVID-19) RNA [Presence] in Unspecified specimen by ANGIE with probe detection NOVEL CORONAVIRUS (COVID-19) Lab Routine Encounter for laboratory testing for severe acute respiratory syndrome coronavirus 2 (SARS-CoV-2) Expected: 09/16/2022, Expires: 10/17/2022 [facility] Work Phone: Comment on above: Expected: 09/16/2022, Expires: 3 Start: 09-15-2022 End: 10-16-2022 SARS-CoV-2 (COVID-19) RNA [Presence] in Unspecified specimen by ANGIE with probe detection NOVEL CORONAVIRUS (COVID-19) Lab Routine Encounter for laboratory testing for severe acute respiratory syndrome coronavirus 2 (SARS-CoV-2) Expected: 09/15/2022, Expires: 10/16/2022 [facility] Work Phone: Comment on above: Expected: 09/15/2022, Expires: 3 Start: 09-11-2022 Hepatitis B vaccination Hepatitis B (HBV) Vaccine (2 of 3 - 19+ 3-dose series) [facility] Start: 09-08-2022 End: 10-26-2022 Basic metabolic 2000 panel - Serum or Plasma BASIC METABOLIC PANEL Lab Routine Alcoholic hepatitis without ascites Alcoholic cirrhosis of liver without ascites (HCC) 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) Expected: 09/08/2022, Expires: 10/26/2022 [facility] Comment on above: Expected: 09/08/2022, Expires: 3 Start: 08-29-2022 End: 08-29-2022 Patient encounter procedure 08/29/2022 Office Visit Family Practice Theo Burks MD [address] [facility] [address] [place] [address] [facility] Start: 08-28-2022 End: 08-28-2022 Telemedicine consultation with patient 08/28/2022 Telemedicine Gastroenterology Saskia Madison, LIBAN-DAYAMI [address] [facility] [address] [place] [address] [facility] Start: 08-27-2022 End: 09-12-2022 Assay of ferritin FERRITIN Lab Routine Alcoholic hepatitis without ascites Alcoholic cirrhosis of liver without ascites (HCC) 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) Expected: 08/27/2022, Expires: 09/12/2022 [facility] Comment on above: Expected: 08/27/2022, Expires: 3 Start: 08-27-2022 End: 09-12-2022 Assay of gammaglobulin iga igd igg igm each IMMUNOGLOBULIN G Lab Routine Alcoholic hepatitis without ascites Alcoholic cirrhosis of liver without ascites (HCC) 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) Expected: 08/27/2022, Expires: 09/12/2022 [facility] Comment on above: Expected: 08/27/2022, Expires: 3 Start: 08-27-2022 End: 09-12-2022 Assay of iron IRON AND TIBC Lab Routine Alcoholic hepatitis without ascites Alcoholic cirrhosis of liver without ascites (HCC) 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) Expected: 08/27/2022, Expires: 09/12/2022 [facility] Comment on above: Expected: 08/27/2022, Expires: 3 Start: 08-27-2022 End: 09-12-2022 Hfe hemochromatosis gene anal common variants HEMOCHROMATOSIS DNA TEST Lab Routine Alcoholic hepatitis without ascites Alcoholic cirrhosis of liver without ascites (HCC) 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) Expected: 08/27/2022, Expires: 09/12/2022 [facility] Comment on above: Expected: 08/27/2022, Expires: 3 Start: 08-27-2022 End: 09-12-2022 Smooth muscle antibody measurement SMOOTH MUSC ATB SCRN & TITR Lab Routine Alcoholic hepatitis without ascites Alcoholic cirrhosis of liver without ascites (HCC) 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) Expected: 08/27/2022, Expires: 09/12/2022 [facility] Comment on above: Expected: 08/27/2022, Expires: 3 Start: 08-27-2022 End: 09-12-2022 Unlisted chemistry procedure MISCELLANEOUS SEND OUT TE ST Lab Routine Alcoholic hepatitis without ascites Alcoholic cirrhosis of liver without ascites (HCC) 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) Expected: 08/27/2022, Expires: 09/12/2022 [facility] Work Phone: Comment on above: Expected: 08/27/2022, Expires: 3 Start: 08-25-2022 End: 09-12-2022 Prothrombin time PROTHROMBIN TIME AND INR Lab Lab Add-On Alcoholic cirrhosis of liver without ascites (HCC) Expected: 08/25/2022, Expires: 09/12/2022 [facility] Work Phone: Comment on above: Expected: 08/25/2022, Expires: 3 Start: 08-25-2022 End: 08-25-2022 Patient encounter procedure [facility] Comment on above: Arrived Start: 08-19-2022 End: 08-19-2022 Professional / ancillary services management 08/19/2022 [facility]illary [facility] Start: 08-19-2022 End: 08-19-2022 Professional / ancillary services management 08/19/2022 Ancillary Procedure Radiology [facility] Start: 08-14-2022 End: 08-14-2023 US Abdomen RUQ US LIVER/GALL BLADDER/PANCREAS Imaging Routine Iron deficiency anemia, unspecified iron deficiency anemia type Alcoholic cirrhosis, unspecified whether ascites present (HCC) Expected: 08/14/2022, Expires: 08/14/2023 [facility] Work Phone: Comment on above: Expected: 08/14/2022, Expires: 3 Start: 08-14-2022 End: 08-14-2023 US.doppler Portal vein and Hepatic vein US HEP PORT SPLEN VEIN + DOPPLER Imaging Routine Iron deficiency anemia, unspecified iron deficiency anemia type Alcoholic cirrhosis, unspecified whether ascites present (HCC) Expected: 08/14/2022, Expires: 08/14/2023 [facility] Comment on above: Expected: 08/14/2022, Expires: 3 Start: 08-14-2022 End: 08-14-2022 Patient encounter procedure [facility] Start: 07-11-2022 Hepatocellular Carcinoma Screening Hepatocellular Carcinoma Screening [facility] Start: 07-11-2022 Liver Imaging (Hepatocellular Carcinoma Screening) Liver Imaging (Hepatocellular Carcinoma Screening) [facility] Start: 07-11-2022 [facility] Start: 06-07-2022 Influenza vaccination Influenza Vaccine (#1) [facility] Start: 05-06-2022 Subsequent hospital visit by physician 05/06/2022 Hospital Encounter Oncology Medical Tanvir Black MD [address] [place] [address] [place] [address] Subj: Appointment Reminder [facility] Comment on above: Subj: Appointment Reminder Start: 05-06-2022 End: 05-06-2022 Patient encounter procedure [facility] Non Invasive Cardiology Start: 04-07-2022 Influenza vaccination Influenza Vaccine (#1) [facility] Start: 03-13-2022 End: 03-13-2022 Patient encounter procedure 03/13/2022 Appointment Oncology Medical [facility] Start: 03-13-2022 End: 03-13-2022 Patient encounter procedure 03/13/2022 Appointment Oncology Medical Tanvir Black MD [address] [facility] [place] [address] [facility] Start: 02-11-2022 End: 02-11-2022 ambulatory [facility] Start: 02-11-2022 End: 02-11-2022 Patient encounter procedure 02/11/2022 Appointment Oncology Medical Tanvir Black MD [address] [facility] [address] [place] [address] [facility] Start: 01-23-2022 End: 01-23-2022 ambulatory [facility] Start: 01-23-2022 End: 01-23-2022 Patient encounter procedure 01/23/2022 Office Visit Orthopedics [place] Welch MD [address] [facility] [address] [facility] [place] [address] [facility] Start: 01-20-2022 End: 01-20-2022 ambulatory [facility] Start: 02-05-2021 COVID-19 Vaccine (2 - Moderna risk series) COVID-19 Vaccine (2 - Moderna risk series) [facility] Start: 02-05-2021 COVID-19 Vaccine (3 - Moderna risk series) COVID-19 Vaccine (3 - Moderna risk series) [facility] Start: 2011 HPV Vaccine (optional start 27-45 years) HPV Vaccine (optional start 27-45 years) [facility] Start: 2003 Shingles (RZV) Vaccine (1 of 2) Shingles (RZV) Vaccine (1 of 2) [facility] Start: 2002 Tetanus + diphtheria + acellular pertussis vaccine (product) [facility] Start: 1990 Pneumococcal vaccination [facility] Start: 1990 [facility] Start: 1989 COVID-19 Vaccine (#1) COVID-19 Vaccine [...] [facility] Comment on above: monthly for 12 Occurrences starting 03/2022 until 03/13/2023, 1 completed Assay of gammaglobul in iga igd igg igm each IMMUNOGLOBULIN G Lab Routine Alcoholic hepatitis without ascites Alcoholic cirrhosis of liver without ascites (HCC) 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) 08/25/2022 12:41 PM EST [facility] Assay of haptoglobin quantitative [employer] Work Phone: End: 03-13-2023 Assay of [...] Routine Dysuria 08/14/2022 12:17 PM EST [employer] Work Phone: Basic metabolic 2000 panel - Serum or Plasma [facility] End: 03-13-2023 Basic metabolic 2000 panel - Serum or Plasma BASIC METABOLIC PANEL Lab STAT 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 for 12 Occurrences starting 03/13/2022 until 03/13/2023, 1 completed [facility] Comment on above: monthly for 12 [...] METABOLIC PANEL Lab Routine Nausea Ordered: 10/27/2022 [facility] Comment on above: Ordered: 10/27/2022 End: 11-13-2023 Basic metabolic 2000 panel - Serum or Plasma BASIC METABOLIC PANEL Lab STAT 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) 6 Occurrences starting 11/12/2022 until 11/13/2023, 1 completed [facility] Comment on above: 6 Occurrences starting 11/12/2022 until 11/13/2023, 1 completed End: 11-13-2023 Blood count reticulocyte automated RETICULOCYTE COUNT Lab STAT 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) 6 Occurrences starting 11/12/2022 until 11/13/2023, 1 completed [facility] Comment on above: 6 Occurrences starting 11/12/2022 until 11/13/2023, 1 completed CBC panel - Blood by Automated count [facility] End: 08-14-2023 CBC panel - Blood by Automated count COMPLETE BLOOD COUNT Lab Routine Iron deficiency anemia, unspecified iron deficiency anemia type Alcoholic cirrhosis, unspecified whether ascites present (HCC) 1 Occurrences starting 08/14/2022 until 08/14/2023 [facility] Comment on above: 1 Occurrences starting [...] starting 03/13/2022 until 03/13/2023, 1 completed [employer] Work Phone: Comment on above: monthly for 12 Occurrences starting 03/2022 until 03/13/2023, 1 completed End: 11-13-2023 CBC W Auto Differential panel - Blood COMPLETE BLOOD COUNT W/DIFF Lab STAT 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) 6 Occurrences starting 11/12/2022 until 11/13/2023, 1 completed [employer] Work Phone: Comment on above: 6 Occurrences starting 11/12/2022 until 11/13/2023, 1 completed Creatine kinase total CREATINE K INASE Lab Routine Muscle soreness Ordered: 08/29/2022 [employer] Work Phone: Comment on above: Ordered: 08/29/2022 ESOPHAGOGASTRODUODEN OSCOPY, GENERAL ANESTHESIA [facility] Hepatic function panel [employer] Work Phone: End: 03-13-2023 Hepatic function panel HEPATIC FUNCTION PANEL Lab STAT 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 for 12 Occurrences starting 03/13/2022 until 03/13/2023, 1 completed [facility] Comment on above: monthly for 12 Occurrences starting 03/2022 until 03/13/2023, 1 completed End: 08-14-2023 Hepatic function panel HEPATIC FUNCTION PANEL Lab Routine Iron deficiency anemia, unspecified iron deficiency anemia type Alcoholic cirrhosis, unspecified whether ascites present (HCC) 1 Occurrences starting 08/14/2022 until 08/14/2023 [facility] Comment on above: 1 Occurrences starting 08/14/2022 until 08/14/2023 Hepatic function panel HEPATIC F UNCTION PANEL Lab Routine Nausea Ordered: 10/27/2022 [facility] Comment on above: Ordered: 10/27/2022 End: 11-13-2023 Hepatic function panel HEPATIC FUNCTION PANEL Lab STAT 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) 6 Occurrences starting 11/12/2022 until 11/13/2023, 1 completed [facility] Comment on above: 6 Occurrences starting 11/12/2022 until 11/13/2023, 1 completed [facility] hemochromatosis gene anal common variants HEMOCHROMATOSIS DNA TEST Lab Routine Alcoholic hepatitis without ascites Alcoholic cirrhosis of liver without ascites (HCC) 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) 08/25/2022 12:41 PM EST [facility] Hfe hemochromatosis gene anal common variants HEMOCHROMATOSIS DNA TEST Lab Routine Increased storage iron 11/13/2022 11:58 AM EST [facility] Lactate dehydrogenase ldh [facility] End: 03-13-2023 Lactate dehydrogenase ldh LDH Lab STAT Hemolytic anemi a due to warm antibody (HCC) monthly for 12 Occurrences starting 03/13/2022 until 03/13/2023, 1 completed [facility] Comment on above: monthly for 12 Occurrences starting 03/2022 until 03/13/2023, 1 completed End: 11-13-2023 Lactate dehydrogenase ldh LDH Lab STAT Hemolytic anemi a due to warm antibody (HCC) 6 Occurrences starting 11/12/2022 until 11/13/2023, 1 completed [facility] Comment on above: 6 Occurrences starting 11/12/2022 until 11/13/2023, 1 completed Prothrombin time [facility] End: 08-14-2023 Prothrombin time PROTHROMBIN TIME AND INR Lab Routine Iron deficiency anemia, unspecified iron deficiency anemia type Alcoholic cirrhosis, unspecified whether ascites present (HCC) 1 Occurrences starting 08/14/2022 until 08/14/2023 [facility] Comment on above: 1 Occurrences starting 08/14/2022 until 08/14/2023 Prothrombin time PROTHROMBIN IVAN E AND INR Lab Routine Nausea Ordered: 10/27/2022 [facility] Work Phone: Comment on above: Ordered: 10/27/2022 Smooth muscle antibo dy measurement SMOOTH MUSC ATB SCRN & TITR Lab Routine Alcoholic hepatitis without ascites Alcoholic cirrhosis of liver without ascites (HCC) 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) 08/25/2022 12:41 PM [facility] Unlisted chemistry procedure MIS CELLANEOUS SEND OUT TEST Lab Routine Alcoholic hepatitis without ascites Alcoholic cirrhosis of liver without ascites (HCC) 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) 08/25/2022 12:41 PM EST [facility] Immunizations Immunization Date Immunization Notes Care Provider Vandana watters 10-27-2022 hepatitis B vaccine, unspecified formulation Marcello Ibanez MD Work Phone: [facility] 08-14-2022 hepatitis B vaccine, adult dosage Saskia Madison APRN-FIRE EXTINGUISHER TESTER Work Phone: [facility] 01-08-2021 Moderna Monovalent (12+ yrs) COVID-19 vaccine, mRNA, spike protein, LNP, PF, 100 mcg/0.5 mL (LNN=558) Marcello Ibanez MD Work Phone: [facility] 12-11-2020 Moderna Monovalent (12+ yrs) COVID-19 vaccine, mRNA, spike protein, LNP, PF, 100 mcg/0.5 mL (JHM=815) Marcello Ibanez MD Work Phone: [facility] NEGATED: Highlighted row has not occurred!08-26-2023 influenza virus vaccine, unspecified formulation Lisa Lopez [facility] Payers Date Payer Category Payer Unknown [id number] 2021 Unknown [id number] 2. [id number] 1984 Unknown [id number] 2.16. 840.1.910861.3.579.2. 1984 Unknown [id number] 2.16. 840.1.927520.3.579.2.732 1984 Unknown [id number] 2.16. 840.1.815041.3.579.2. 1984 Unknown [id number] 2.16. 840.1.205737.3.579.2.732 1984 Unknown [id number] 2.16. 840.1.167121.3.579.2. 1984 Unknown [id number] 2.16. 840.1.585022.3.579.2.732 1984 Unknown [id number] 2.16. 840.1.302694.3.579.2. 1984 Unknown [id number] 2.16. 840.1.431596.3.579.2. 1984 Unknown [id number] 2.16. 840.1.158778.3.579.2. 1984 Unknown [id number] 2.16. 840.1.514700.3.579.2. 1984 Unknown [id number] 2.16. 840.1.784767.3.579.2. 1984 Unknown [id number] 2.16. 840.1.790411.3.579.2. 1984 Unknown [id number] 2.16.8 40.1.679188.3.579.2 1984 Unknown [id number] 2.16.8 40.1.648530.3.579.2 1984 Unknown [id number] 2.16.8 40.1.235791.3.579.2 1984 Unknown [id number] 2.16.8 40.1.041288.3.579.2 1984 Unknown [id number] 2.16.8 40.1.869926.3.579.2 1984 Unknown [id number] 2.16.8 40.1.794985.3.579.2. 1984 Unknown [id number] 2.16.8 40.1.859073.3.579.2 1984 Unknown [id number] 2.16.8 40.1.616704.3.579.2 1984 Unknown [id number] 2.16.8 40.1.224626.3.579.2 1984 Unknown [id number] 2.16.8 40.1.412257.3.579.2. 1984 Unknown [id number] 2.16.8 40.1.991703.3.579.2 1984 Unknown [id number] 2.16.8 40.1.576964.3.579.2 1984 Unknown [id number] 2.16.8 40.1.351570.3.579.2 1984 Unknown [id number] 2.16.8 40.1.391301.3.579.2 1984 Unknown [id number] 2.16.8 40.1.492408.3.579.2 1984 Unknown [id number] 2.16.8 40.1.128478.3.579.2 1984 Unknown [id number] 2.16.8 40.1.495681.3.579.2 1984 Unknown [id number] 2.16.8 40.1.910991.3.579.2 1984 Unknown [id number] 2.16.8 40.1.443898.3.579.2 1984 Unknown [id number] 2.16.8 40.1.558739.3.579.2 1984 Unknown [id number] 2.16.8 40.1.993163.3.579.2 1984 Unknown [id number] 2.16.8 40.1.907519.3.579.2 1984 Unknown [id number] 2.16.8 40.1.784326.3.579.2 1984 Unknown [id number] 2.16.8 40.1.806350.3.579.2 1984 Unknown [id number] 2.16.8 40.1.291633.3.579.2 1984 Unknown [id number] 2.16.8 40.1.197575.3.579.2 1984 Unknown [id number] 2.16.8 40.1.642301.3.579.2.727 1984 Unknown [id number] 2.16.8 40.1.887996.3.579.2.727 1984 Unknown [id number] 2.16.8 40.1.373015.3.579.2.727 1984 Unknown [id number] 2.16.8 40.1.165329.3.579.2.727 1984 Unknown [id number] 2.16.8 40.1.824486.3.579.2.727 1984 Unknown [id number] 2.16.8 40.1.177883.3.579.2.727 1984 Unknown [id number] 2.16.8 40.1.560265.3.579.2.727 Social History Date Type Detail Facility Tobacco Tobacco smoking consumption unknown [facility] Comment on above: daily chew pt denies Sex Assigned At Male [facility] Start: 1984 [facility] Tobacco smoking consumption unknown [facility] Start: 08-14-2022 End: 09-01-2023 Tobacco smoking status ILIS [facility] Comment on above: quit cigarettes 8 ye ken carye, quit 9 years ago History of tobacco use Current smoker [facility] History of tobacco use [facility]igarette [facility] Start: 08-14-2022 Tobacco use and exposure User of smokeless tobacco [facility] History of tobacco use Chews Tobacco [facility] Start: 08-05-2022 End: 12-16-2022 Exposure to SARS-CoV-2 (event) Not sure [facility] Start: 08-19-2022 End: 08-29-2022 Exposure to SARS-CoV-2 (event) Unable to assess [facility] Work Phone: Tobacco smoking status No Smokin g Status Entered [facility] Tobacco smoking status Smokeless tobacco user within last 30 days [facility] Comment on above: quit cigarettes 9 ye ken carey, quit 9 years ago Medical Equipment Procedure Code Equipment Code Equipment Origin al Text Equipment Identifier Dates [Order 1 Start] Name: dextrose 10 % iv infusion Signed Summary: 125 mL, Intravenous, at 999 mL/hr, PRN, Starting on Thu01/17/22 at 14, Until Discontinued, For blood glucose less than 70 mg/dL, with IV access and with loss of consciousness or unable to swallow or NPO [Order 1 End] [Order 2 Start] Name: glucagon (GLUCAGEN) 1 MG injection Signed Summary: 1 mg, Subcutaneous, PRN, Starting on Thu01/17/22 at 14, Until Discontinued, For blood glucose less than [...] and able to swallow. [Order 4 End] [id number] Start: 01-17-2022 Functional Status Date Assessment Result Facility 09-21-2023 Functional Status N/A [facility] 09-01-2023 Functional Status N/A [facility] 08-26-2023 Functional Status N/A [facility] 07-24-2023 Functional Status N/A [facility] 06-19-2023 Functional Status N/A [facility] 03-22-2023 Functional Status N/A [facility] 02-18-2023 Functional Status N/A [facility] 02-17-2022 Functional Status N/A [facility] Clinical Notes 01-07-2022 to 10-01-2023 Note Date & Type Note Facility 10-01-2023 Note [id number]#[id number] [facility] 09-30-2023 Note Gastroenterology Upper Endoscopy, Adult, Care After After the procedure, it is common to have a sore throat. It is also common to have: ? Mild stomach pain or discomfort. ? Bloating. ? Nausea. Follow these instructions at home: The instructions below may help you care for yourself at home. Your health care provider may give you more instructions. If you have questions, ask your health care provider. ? If you were given a sedative during the procedure, it can affect you for several hours. Do not drive or operate machinery until your health care provider says that it is safe. ? If you will be going home right after the procedure, plan to have a responsible adult: ? Take you home from the hospital or clinic. You will not be allowed to drive. ? Care for you for the time you are told. ? Follow instructions from your health care provider about what you may eat and drink. ? Return to your normal activities as told by your health care provider. Ask your health care provider what activities are safe for you. ? Take iwge-arj-ljbueme and prescription medicines only as told by your health care provider. Contact a health care provider if you: ? Have a sore throat that lasts longer than one day. ? Have trouble swallowing. ? Have a fever. Get help right away if you: ? Vomit blood or your vomit looks like coffee grounds. ? Have bloody, black, or tarry stools. ? Have a very bad sore throat or you cannot swallow. ? Have difficulty breathing or very bad pain in your chest or abdomen. These symptoms may be an emergency. Get help right away. Call 911. ? Do not wait to see if the symptoms will go away. ? Do not drive yourself to the hospital. Summary ? After the procedure, it is common to have a sore throat, mild stomach discomfort, bloating, and nausea. ? If you were given a sedative during the procedure, it can affect you for several hours. Do not drive until your health care provider says that it is safe. ? Follow instructions from your health care provider about what you may eat and drink. ? Return to your normal activities as told by your health care provider. This information is not intended to replace advice given to you by your health care provider. Make sure you discuss any questions you have with your health care provider. Document Revised: 12/03/2022 Document Reviewed: 12/03/2022 [employer] Patient Education ? 2022 [employer] Esophageal Varices Esophageal varices are enlarged veins in the part of the body that moves food from the mouth to the stomach (esophagus). They develop when extra blood is forced to flow through these veins because the blood's normal flow is blocked. Without treatment, esophageal varices eventually break and bleed (hemorrhage), which can be life-threatening. What are the causes? This condition may be caused by: ? Scarring of the liver due to alcoholism. This is the most common cause. ? Long-term liver disease. ? Severe heart failure. ? A blood clot in a vein that supplies the liver. ? A disease that causes inflammation in the organs and other body areas. What are the signs or symptoms? Esophageal varices usually do not cause symptoms unless they start to bleed. Symptoms of bleeding esophageal varices include: ? Vomiting material that is bright red or that is black and looks like coffee grounds. ? Coughing up blood. ? Stools (feces) that look black and tarry. ? Dizziness or light-headedness. ? Low blood pressure. ? Loss of consciousness. How is this diagnosed? This condition is diagnosed with a procedure called endoscopy. During endoscopy, your health care provider uses a flexible tube with a small camera on the end of it (endoscope) to look down your throat and examine your esophagus. You may also have other tests, including: ? Imaging tests, such as a CT scan or ultrasound. ? Blood tests. How is this treated? This condition may be treated with: ? Medicines. Medicines are usually used to treat varices that are not bleeding. ? Procedures. Procedures are done to treat varices that are bleeding. They stop bleeding, or reduce pressure and the risk of bleeding. Procedures include: ? Placing an elastic band around the varices to keep them from bleeding. ? Replacing blood that you have lost due to bleeding. This may include getting a transfusion of blood or parts of blood, such as platelets or clotting factors. ? You may be given antibiotic medicine to help prevent infection. ? Getting an injection into the varices that causes it to shrink and close (sclerotherapy). You may also be given medicines that tighten blood vessels or change blood flow. ? Placing a balloon in the esophagus and inflating it. The balloon applies pressure to the bleeding veins to help stop the bleeding. ? Placing a small tube within the veins in the liver. This decreases blood flow and pressure in the esophageal varices. If (more content not included)... [facility] 09-21-2023 Hospital Discharge instructions Follow Up Care 09/21/2023 12:59:46 With:Lisa Padilla [facility] Address: [facility] [address], [address] [address]- When: Unknown [facility] 08-26-2023 Hospital Discharge instructions Patient Education 08/26/2023 11:03:02 Hypokalemia Hypokalemia [...] products, such as yogurt. General instructions Take bqml-ylq-hezoljd and prescription medicines only as told by [...] provider. Document Revised: 05/08/2022 Document Reviewed: 05/08/2022 [employer] Patient Education 2022 [employer]. 08/26/2023 11:03:00 Stasis Dermatitis Stasis Dermatitis Stasis [...] care provider who specializes in skin diseases (flight test mechanic). How is this treated? This condition may [...] detergents, or perfumes. Medicines Take or use yuqw-nmw-vywxdjh and prescription medicines only as told by [...] provider. Document Revised: 11/04/2021 Document Reviewed: 11/04/2021 [employer] Patient Education 2022 [employer]. 08/26/2023 11:02:52 Alcoholic Liver Disease Alcoholic Liver [...] can provide emotional support and guidance. Take qeem-chv-kwkpzox and prescription medicines only as told by [...] provider. Document Revised: 06/06/2021 Document Reviewed: 06/06/2021 [employer] Patient Education 2022 [employer]. 08/26/2023 10:41:25 Incision and Drainage Incision and [...] including vitamins, herbs, eye drops, creams, and qbhd-vqj-sqxlbxw medicines. Any problems you or family members [...] provider tells you to take them. Taking tdis-iiw-xdoitiw medicines, vitamins, herbs, and supplements. Tests You [...] provider. Document Revised: 11/27/2022 Document Reviewed: 06/05/2022 [employer] Patient Education 2022 [employer] 08/26/2023 10:41:21 Stasis Dermatitis Stasis Dermatitis Stasis [...] care provider who specializes in skin diseases (flight test mechanic). How is this treated? This condition may [...] detergents, or perfumes. Medicines Take or use aoji-gao-dvlbmav and prescription medicines only as told by [...] provider. Document Revised: 11/04/2021 Document Reviewed: 11/04/2021 [employer] Patient Education 2022 [employer]. 08/26/2023 10:41:14 Hypokalemia Hypokalemia Hypokalemia means that [...] products, such as yogurt. General instructions Take rnzu-iou-siqfgms and prescription medicines only as told by [...] provider. Document Revised: 05/08/2022 Document Reviewed: 05/08/2022 [employer] Patient Education 2022 [employer]. Follow Up Care 07/24/2023 09:02:18 With:John ALBERTS, KEI Perkins, [facility] Address: [address] [address]- Business (1) When:Within 2 Month(s) Comments:3 mo f/u for ulcers, liver disease, labs [facility] 08-24-2023 Note [id number] [facility] 07-24-2023 Hospital Discharge instructions Patient Education 07/24/2023 09:14:21 Cirrhosis Cirrhosis [...] provider before taking any new medicines, including yhku-gqd-rgtffzj medicines such as NSAIDs. Rest as needed. [...] provider. Document Revised: 06/06/2021 Document Reviewed: 06/06/2021 [employer] Patient Education 2022 [employer]. 07/24/2023 09:14:01 Heart Disease Prevention Heart Disease [...] of hard liquor (44 mL). Medicines Take guib-gad-xzsucdm and prescription medicines only as told by [...] Centers for Disease Control and Prevention: www.cdc.gov/heartdisease [place] [employer]: www.heart.org Summary Heart disease is [...] provider. Document Revised: 04/23/2022 Document Reviewed: 04/23/2022 [employer] Patient Education 2022 [employer]. 07/24/2023 09:13:57 Anemia Anemia Anemia is a [...] spleen. Follow these instructions at home: Take kkxr-ajt-brzdkwr and prescription medicines only as told by [...] provider. Document Revised: 07/08/2022 Document Reviewed: 07/31/2020 [employer] Patient Education 2022 [employer]. 07/24/2023 09:13:53 Hypokalemia Hypokalemia Hypokalemia means that [...] products, such as yogurt. General instructions Take wxel-hsx-ujcxncu and prescription medicines only as told by [...] provider. Document Revised: 05/08/2022 Document Reviewed: 05/08/2022 [employer] Patient Education 2022 [employer]. 07/24/2023 09:13:45 Thrombocytopenia Thrombocytopenia Thrombocytopenia is a [...] Follow these instructions at home: Medicines Take irie-nsc-mytfvqj and prescription medicines only as told by [...] provider. Document Revised: 02/06/2022 Document Reviewed: 02/06/2022 [employer] Patient Education 2022 [employer]. [facility] 06-19-2023 Hospital Discharge instructions Patient Education 06/19/2023 13:28:07 Insect Bite, Adult, Snyo-hf-Janb Insect Bite, Adult An insect bite can [...] of an anaphylactic reaction may include: Feeling nursing educator the face (flushed). Your face may turn [...] a day. General instructions Apply or take toos-faa-wqtpvvy and prescription medicines only as told by [...] ?DEET. ?Picaridin. ?Oil of lemon eucalyptus (OLE). ?[id number]. Consider spraying your clothing with a pesticide [...] an anaphylactic reaction. Signs may include: ?Feeling nursing educator the face. ?Itchy, red, swollen areas of [...] provider. Document Revised: 05/26/2022 Document Reviewed: 05/26/2022 [employer] Patient Education 2022 [employer]. Follow Up Care 06/19/2023 12:16:43 With:Colby Link Address: [address] [facility] [place] [address] Business (1) When:06/22/2023 12:39:51 Comments:Follow-up with your primary care provider in 3 to 5 days. If symptoms worsen, do not improve, or new symptoms arise please report back to emergency department for further evaluation. [facility] 04-24-2023 Evaluation note Encounter Date Diagnosis Assessment [...] sooner should he deteriorate in any way [employer] Other [id number] History of Present illness Narrative* Monie Hernandez [...] well. Monie Hernandez RN documented in this [id number] History of Present illness Narrative* Gustabo Ritchie [...] 100 %. Gustabo Pittman documented in this [id number] NoteMicrobiology PROCEDURE: Blood Culture Charcoal [R1] SOURCE: [...] Locations R1: [facility], [address] [place] [address], [address] [place] [address], WrmkomNewark HospitalComment on above:Performed By: #### [id number] #### [address] [id number] NoteMicrobiology PROCEDURE: Blood Culture Charcoal [R1] SOURCE: [...] Locations R1: This test was performed at: [facility], [address] [place] [address], [address] [place] [address], EfkfzjNewark HospitalComment on above:Performed By: #### [id number] ####[facility] [address] [place], [place] [id number] Hospital Discharge instructions Patient Education 03/22/2023 21:57:13 [...] Follow these instructions at home: Medicines Take owqd-ohv-mzclxzg and prescription medicines only as told by [...] such as antibiotic medicines or antihistamines. Take kfyv-epp-uxjpqot and prescription medicines only as told by [...] provider. Document Revised: 06/05/2022 Document Reviewed: 06/05/2022 ElseHongdianzhibo Patient Education 2022 [employer] Inc. Follow Up Care 03/22/2023 19:36:11 With:THEO BURKS Address:Unknown When:Within 3 Day(s) [facility]07-16-2023 Evaluation + Plan noteExtracted from: Title:ED Note Author:Mary Ann Martin Date :03/22/23 Cellulitis (L03.90: Cellulit is, unspecified) Orders: ondansetron, 4 mg = 1 tab(s), Oral, q8hr, PRN Nausea/Vomiting, # 20 tab(s), Refills(s) 0, [facility]acy: [id number], 170, cm, 03/22/23 20:14:00 EDT, Height/Length Dosing, [...] day(s), 28 tab(s), Refill(s) 0, [id number], 170, cm, 03/22/23 20:14:00 EDT, Height/Length Dosing, [...] Charcoal 03/22/23 * Blood Culture Charcoal 03/22/23 [facility]06-30-2023 Telephone encounter Note* Telephone Encounter - Deborah Gutierrez CPhT - 03/06/2023 8:55 AM EDT A prior authorization has been started for Lidocaine 5% patch PA status can be found under the prescription order in the Medication Tab. History or status of the PA can also be found in Chart Review under Referral tab. [id number] Miscellaneous Notes* Telephone Encounter - Deborah Gutierrez CPhT - 03/06/2023 8:55 AM EDT A prior authorization has been started for Lidocaine 5% patch PA status can be found under the prescription order in the Medication Tab. History or status of the PA can also be found in Chart Review under Referral tab. documented in this [id number] Telephone encounter Note* Telephone Encounter - Nighat Mahmood APRN-CNP - 02/27/2023 5:05 PM EDT Pt had video visit scheduled. Link sent to him, but he never checked in. [employer] Work Phone: 1(185) 778-519806-23-2023 Miscellaneous Notes* Telephone Encounter - Nighat Mahmood [...] Recommendation: n/a Thank you documented in this [id number] Telephone encounter Note* Telephone Encounter - Jordana Stanton RN - 02/27/2023 2:55 PM EDT Called the patient Reminded him of his video visit this ThursdayMarch 03 with Lindsey Mahmood Pt concerned about his leg, he will send a picture to My Chart To his provider Concerned about his infection Notified Lindsey Mahmood [facility] Work Phone: [phone]) 264-529706-23-2023 Telephone encounter Note* Telephone Encounter - Tobi Bowen - 02/27/2023 2:36 PM EDT What is the need: call back Situation: Pt states that the doctors office called him stating that they were running behind but he never got a phone call. Please advise Background: Please contact and advise Assessment: Pt contact info is Phone numbers Recommendation: n/a Thank you [id number] Evaluation + Plan noteExtracted from: Title:ED Note Author:Xander Anne PA-C te:02/18/23 Cellulitis of right leg (L03 .115: Cellulitis of right lower limb) Right leg pain (M79.604: Pain in right leg) Orders: clindamycin, 300 mg = 1 cap(s), Oral, q6hr, X 7 day(s), # 28 cap(s), Refills(s) 0, [facility] #[id number], 170, cm, 02/18/23 7:51:00 EDT, Height/Length Dosing, [...] 15 cap(s), Refills(s) 0, [facility]acy: [id number], 170, cm, 02/18/23 7:51:00 EDT, Height/Length Dosing, 77, kg, 02/18/23 7:51:00 EDT, Weight Dosing US LE Venous Duplex Right [facility]06-14-2023 Hospital Discharge instructions Patient Education 02/18/2023 09:31:38 RICE Therapy for Routine Care of Injuries, Lazn-au-Zist RICE Therapy for Routine Care of Injuries [...] provider. Document Revised: 06/13/2021 Document Reviewed: 06/13/2021 [employer] Patient Education 2022 [employer]. 02/18/2023 09:31:38 Musculoskeletal Pain Musculoskeletal Pain Musculoskeletal [...] by mouth or applied to theskin. Take ishy-ykt-pbtfrxb and prescription medicines only as told by [...] provider. Document Revised: 12/27/2020 Document Reviewed: 12/05/2020 [employer] Patient Education 2022 [employer]. 02/18/2023 09:31:38 Pain Without a Known Cause [...] Follow these instructions at home: Medicines Take vkhu-oqw-aequvwg and prescription medicines only as told by your health care provider. Ask your health care provider if the medicine prescribed to you: ?Requires you to avoid driving or using machinery. ?Can cause constipation. You may need to take these actions to prevent or treat constipation: ? Drink enough fluid to keep your urine pale yellow. ?Take uwhs-hny-aubszxd or prescription medicines. ?Eat foods that are [...] the National Suicide Prevention Lifeline at or 618. This is open 24 hours a day. Text the Crisis Text Line at 027688. Summary Pain can occur in any part [...] provider. Document Revised: 04/23/2022 Document Reviewed: 04/23/2022 [employer] Patient Education 2022 [employer]. 02/18/2023 09:31:38 Cellulitis, Adult, Orct-ew-Xmbn Cellulitis, Adult Cellulitis is a skin infection. [...] Follow these instructions at home: Medicines Take ajlq-lih-wyjetxh and prescription medicines only as told by [...] provider. Document Revised: 06/05/2022 Document Reviewed: 06/05/2022 [employer] Patient Education 2022 [employer]. Follow Up Care 02/18/2023 07:42:07 With:THEO BURKS Address:Unknown When:02/21/2023 09:01:56 Comments:Follow-up with your primary care provider in 3 to 5 days. If symptoms worsen, do not improve, or new symptoms arise please report back to emergency department for further evaluation. [facility]05-16-2023 NotePOST-PROCEDURE NOTE Procedure: Transjugular liver biopsy with pressure measurements Pre-operative Diagnosis: Cirrhosis, diagnostic evaluation Post-operative Diagnosis: Portal hypertension, cirrhosis Attending: Ercia Rock MD Control Room Helper: Leon Hernadez MD (attending) Brayan Babin MD [...] Medication Given Dose: 50 mcg; Route: Intravenous Rich Flores RN 01/20/2023 9:09 AM midazolam (VERSED) 2 [...] Route: Intravenous Push Rich Rubalcava RN 01/20/2023 9:49 AM HYDROmorphone (DILAUDID) 2 MG/ML injection Medication Given Dose: 1 mg; Route: Intravenous Rich Flores RN 01/20/2023 10:03 AM Complications: None Specimens: [...] portion of the procedure. Brayan Babin MD [facility] NotePre-Procedure Note HISTORY: Procedure: Transjugular liver biopsy and pressures Indication: 37 yo male with PMH of cirrhosis likely 2/2 to alcohol use and hemolytic anemia who presents to IR for transjugular liver biopsy with portal pressures. 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 documented in this [id number] History of Present illness Narrative* Gustabo Ritchie [...] 100 %. Gustabo Pittman documented in this [id number] History of Present illness Narrative* April Jewell [...] Gastroenterology Fellow Division of Gastroenterology & Hepatology [facility] 01/12/23, 9:01 AM Associated attestation - [...] Gary MD Division of Gastroenterology & Hepatology [facility] documented in this [id number] Instructions* Patient Instructions* Dejuan Lechuga MD - 12/16/2022 10:23 AM EDT [facility] Family Medicine [phone] [address] [facility] [address] Lab tests can be done at a scheduled visit, or by appointment. [facility] [phone] [place] [address] Park in the Outpatient [facility] [facility]age (P9) Under the [facility]ty Services [facility]. Pathology is located in the Speciality Services [place] of the Outpatient [place] on the 2nd floor.Please fill out the paper form at the computer help desk representative then have a seat in the Outpatient Blood Draw Lab (Pathology) waiting area. Hours Thursday 07:00 AM - 05:30 PM Thursday 07:00 AM - 05:30 PM Thursday 07:00 AM - 05:30 PM 07:00 AM - 05:30 PM Thursday 07:00 AM - 05:30 PM [facility] [phone] [place] [address] Follow the overhead sign to [place]: Radiology/X-ray & Lab (right arrow). Check in for testing at the Radiology & Lab Periodicals Library Assistant window. Hours Thursday 10:00 AM - 02:00 PM Thursday 08:00 AM - 07:30 PM Thursday 08:00 AM - 07:30 PM Thursday 08:00 AM - 07:30 PM 08:00 AM - 07:30 PM Thursday 08:00 AM - 07:30 PM Thursday 08:00 AM - 04:00 PM [facility] [phone] [place] [address] [place] at the computer help desk representative and you will be directed to the waiting area. Laboratory staff will takeyou back to the laboratory. Hours Thursday 10:00 AM - 02:00 PM Thursday 07:30 AM - 07:30 PM Thursday 07:30 AM - 07:30 PM Thursday 07:30 AM - 07:30 PM 07:30 AM - 07:30 PM Thursday 07:15 AM - 07:45 PM Thursday 08:00 AM - 04:00 PM [facility] [phone] [place], [place] [id number] Enter through the front door and continue [...] 08:00 AM - 04:00 PM [facility] Lab [phone] [place] [address] The [facility] is located on the first [...] PM Thursday 07:30 AM - 05:00 PM [facility] [phone] [place] [address] The [facility] is located on the first floor, room A1-9185. Enter through the Emergency doors and follow the signs to Medical Offices , making a right turn. [place] at the Registration 1A desk at the end of the hallway, then proceed to the Laboratory on the right. Hours Thursday 07:30 AM - 05:00 PM Thursday 07:30 AM - 05:00 PM Thursday 07:30 AM - 05:00 PM 07:30 AM - 05:00 PM Thursday 07:30 AM - 05:[address] [facility] [phone] [place] [address] The [facility] is located on the first [...] AM - 05:00 PM documented in this [id number] History of Present illness Narrative* Dejuan Lechuga [...] no previous surgical history on file. Diagnostics: [facility] laboratory/diagnostics reviewed and Outside laboratory/diagnostics reviewed Review [...] of . Aleja Rolon documented in this [id number] History of Present illness Narrative* Theo Burks MD - 12/15/2022 4:20 PM EDT [facility] Telemedicine Visit CC: Chief Complaint Patient presents [...] my hip. Patient has signed up for [employer]: Yes Patient past medical, social, family, and surgical history personally reviewed and updated in [facility]. OBJECTIVE: Sounds ewll, no acute distress Breathing comfrotably on room air ASSESSMENT AND PLAN: 1. Rib pain Orders & Meds Signed During This Encounter X-ray Ribs Left Unilateral (Routine) lidocaine (LIDODERM) 5 % patch Documentation: Mode: Telephone Patient Patient Work Phone: Patient Cell Preferred phone: [phone] Consent: I confirmed patient understanding of the [...] Burks MD Family Medicine documented in this [id number] Telephone encounter Note* Telephone Encounter - Aleja Rolon - 12/15/2022 9:14 AM EDT Called patient and made appointment with tomorrow [id number] Miscellaneous Notes* Telephone Encounter - Aleja Rolon - 12/15/2022 9:14 AM EDT Called patient and made appointment with tomorrow documented in this [id number] History of Present illness Narrative* Marcello Ibanez [...] Gastroenterology Fellow Division of Gastroenterology & Hepatology [facility] 10/27/22, 10:43 AM * SchillingEze hendricks - 10/27/2022 9:49 AM EST Patient was identified by name and date of . Eze SchillingPatient at risk for falls:No Falls Risk protocol implemented: No documented in this [id number] History of Present illness Narrative* Haley Gary [...] Gastroenterology Fellow Division of Gastroenterology & Hepatology [facility] 10/27/22, 10:43 AM Attending addendum: Suspect [...] Gary MD Division of Gastroenterology & Hepatology [facility] * Eze Schilling - 10/27/2022 9:49 AM EST Patient was identified by name and date of . Eze ShakirPatient at risk for falls:No Falls Risk protocol implemented: No documented in this [id number] History of Present illness Narrative* Haley Gary [...] Gastroenterology Fellow Division of Gastroenterology & Hepatology [facility] 10/27/22, 10:43 AM Attending addendum: Suspect [...] Gary MD Division of Gastroenterology & Hepatology [facility] * Eze Schilling - 10/27/2022 9:49 AM EST Patient was identified by name and date of . Eze SchillingPatient at risk for falls:No Falls Risk protocol implemented: No documented in this [id number] Telephone encounter Note* Telephone Encounter - Tanika [...] and will need rescheduled. Tanika Arias RN [facility] Work Phone: [phone]) 104-696401-14-2023 Miscellaneous Notes* Telephone Encounter - Tanika Arias [...] rescheduled. Tanika Arias RN documented in this [id number] History of Present illness Narrative* Theo Burks MD - 08/29/2022 9:20 AM EST [facility] Telemedicine Visit CC: Chief Complaint Patient presents [...] surgical history personally reviewed and updated in [employer]. OBJECTIVE: There were no vitals taken for this visit. Gen: Sounds well, no acute distress Resp: breathing comfortably ASSESSMENT AND PLAN: 1. Cellulitis, unspecified cellulitis site 2. Muscle soreness Orders & Meds Signed During This Encounter Creatine Kinase Documentation: Mode: Telephone Patient Patient Work Phone: Patient Cell Preferred phone: [phone] Consent: I confirmed patient understanding of the [...] obtain at earliest convenience. RTC PRN Theo uBrks MD Family Medicine documented in this [id number] Instructions* Patient Instructions* Theo Burks MD - 08/25/2022 2:16 PM EST Continue antibiotics for another 7 days Topical antibiotic ointment for left foot Follow up on Thursday Refilled zofran (anti-nausea medication) documented in this [id number] History of Present illness Narrative* Theo Burks MD - 08/25/2022 1:31 PM EST Images from the original note were not included. [facility] Family Medicine Office Visit CC: Chief Complaint [...] surgical history personally reviewed and updated in [facility]. OBJECTIVE: BP 132/65 (BP Location: left [...] Burks MD Family Medicine documented in this [id number] History of Present illness Narrative* Abbey Alvarze MD - 08/25/2022 10:44 AM EST Images [...] hepatology clinic for EtOH cirrhosis. Admitted to [facility] ICU for acute alcoholic hepatitis [...] B27 positive) 2003 Followed with Rheum at [facility] Open fracture of other and unspecified [...] Gastroenterology Fellow Division of Gastroenterology & Hepatology [facility] 08/25/22, 10:44 AM * Maura Canela - 08/25/2022 10:40 AM EST Patient was identified by name and date of . Maura Canela Patient at risk for falls:No Falls Risk protocol implemented: No documented in this [id number] History of Present illness Narrative* Abbey Alvarez MD - 08/25/2022 10:44 AM EST Images from the original note were not included. Department of Gastroenterology and Hepatology Hepatology New Clinic Visit GI Attending Physician: Dr. Hlaey Gary MD PCP: No primary care provider on file. 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 Admitted to [facility] ICU for acute alcoholic hepatitis [...] B27 positive) 2003 Followed with Rheum at [facility] Open fracture of other and unspecified [...] Gastroenterology Fellow Division of Gastroenterology & Hepatology [facility] 08/25/22, 10:44 AM * Maura Canela - 08/25/2022 10:40 AM EST Patient was identified by name and date of . Maura Canela Patient at risk for falls:No Falls Risk protocol implemented: No documented in this [id number] History of Present illness Narrative* Abbey Alvarez [...] hepatology clinic for EtOH cirrhosis. Admitted to [facility] ICU for acute alcoholic hepatitis [...] B27 positive) 2003 Followed with Rheum at [facility] Open fracture of other and unspecified [...] Gastroenterology Fellow Division of Gastroenterology & Hepatology [facility] 08/25/22, 10:44 AM Associated attestation - [...] Gary MD Division of Gastroenterology & Hepatology [facility] * Maura Canela - 08/25/2022 10:40 AM EST Patient was identified by name and date of . Maura Canela Patient at risk for falls:No Falls Risk protocol implemented: No documented in this [id number] Note* Addendum Note - Tanvir Black MD - 08/21/2022 8:52 PM ESTAddended by: TANVIR BLACK on: 08/21/2022 08:52 PM Modules accepted: Orders [id number] Miscellaneous Notes* Addendum Note - Tanvir Black MD - 08/21/2022 8:52 PM ESTAddended by: TANVIR BLACK on: 08/21/2022 08:52 PM Modules accepted: Orders documented in this [id number] History of Present illness Narrative* Tanvir Black MD - 08/16/2022 11:07 AM EST Images from the original note were not included. Reviewed urine C&S. Urine growing klebsiella pneumoniae, with intermediate sensitivity to Macrobid. Culture Positive Culture Report Abnormal >100,000 CFU/ml Klebsiella pneumoniae [place]ing [place] [facility] [place] Klebsiella pneumoniae BHAVIN Amoxicillin + Clavulanate [...] Phone numbers Preferred Tanvir Black MD Pgr [phone] Hematology/Oncology 08/16/2022 . documented in this [id number] Hospital Discharge instructions* Discharge Instructions* Dante Marcelino MD - 08/15/2022 3:08 PM EST EMERGENCY DEPARTMENT FOLLOW-UP: Please see your Primary Care Physician at next available appointment for follow up. Please call today or tomorrow to make an appointment. Residents of [facility] may apply for discounts available only to residents of this [facility] by contacting the Eligibility Call Center at [phone]. If you do not have a primary physician please call [phone] for guidance on finding a [facility] provider. PLEASE NOTE: If you are followed [...] during this visit: None documented in this [id number] History of Present illness Narrative* Nenita Franco [...] B27 positive) 2003 Followed with Rheum at [facility] Open fracture of other and unspecified [...] of . Katie Paniagua documented in this [id number] History of Present illness Narrative* Tanvir Black [...] B27 positive) 2003 Followed with Rheum at [facility] Open fracture of other and unspecified [...] Time Provider Department Center 08/19/2022 8:30 AM [facility] 2 [facility] 08/19/2022 1:45 PM [facility] 2 [facility] 08/28/2022 10:30 AM Saskia Madison APRN-DAYAMI [facility] 09/19/2022 11:00 AM Saskia Madison APRN-CNP [facility] 11/13/2022 11:30 AM [facility]/13/2022 12:00 PM ONC NURSE [facility] Tanvir Black MD Hematology/Oncology 08/14/22 4:09 PM * Jojo Garcia - 08/14/2022 11:52 AM EST .Patient was identified by name and date of . Jojo Garcia .Patient at risk for falls:No Falls Risk protocol implemented: No documented in this [id number] History of Present illness Narrative* Emily Dunn, RN - 08/14/2022 2:08 PM EST During this visit the vaccine(s) was: Administered Obtained informed verbal consent from patient/parent/patient mill representative for immunization(s) as ordered, questionnaire completed and VIS educational handouts reviewed with patient/parent/patient mill representative who denies contraindications and verbalizes understanding of indication, potential side effect and actions to be taken if side effects occur. Double identification of patient completed with patient/parent/patient mill representative using name and prior to administration, and patient tolerated immunization(s) administration without incident. * Maura Canela - 08/14/2022 1:08 PM EST Patient was identified by name and date of . Maura Foxtient at risk for falls:No Falls Risk protocol implemented: No * Saskia Madison APRN-FIRE EXTINGUISHER TESTER - 08/14/2022 1:00 PM EST Images from [...] B27 positive) 2003 Followed with Rheum at [facility] Open fracture of other and unspecified [...] and/or coordination of care. Sincerely, KONRAD Quevedo [facility] Division of Gastroenterology & Hepatology 08/14/22 1:54 PM GI clinic documented in this [id number] History of Present illness Narrative* Emily Dunn RN - 08/14/2022 2:08 PM EST During this visit the vaccine(s) was: Administered Obtained informed verbal consent from patient/parent/patient mill representative for immunization(s) as ordered, questionnaire completed and VIS educational handouts reviewed with patient/parent/patient mill representative who denies contraindications and verbalizes understanding of indication, potential side effect and actions to be taken if side effects occur. Double identification of patient completed with patient/parent/patient mill representative using name and prior to administration, and patient tolerated immunization(s) administration without incident. * Maura Canela - 08/14/2022 1:08 PM EST Patient was identified by name and date of . Maura WilhelmoPatient at risk for falls:No Falls Risk protocol implemented: No * Saskia Madison, HEAD WAITER/WAITRESS-FIRE EXTINGUISHER TESTER - 08/14/2022 1:00 PM EST Images from [...] B27 positive) 2003 Followed with Rheum at [facility] Open fracture of other and unspecified [...] counseling, educating, and/or coordination of care. Sincerely, Saskia Madison APRN-FIRE EXTINGUISHER TESTER [facility] Division of Gastroenterology & Hepatology 08/15/22 8:19 AM GI clinic documented in this [id number] History of Present illness Narrative* Emily Dunn RN - 08/14/2022 2:08 PM EST During this visit the vaccine(s) was: Administered Obtained informed verbal consent from patient/parent/patient mill representative for immunization(s) as ordered, questionnaire completed and VIS educational handouts reviewed with patient/parent/patient mill representative who denies contraindications and verbalizes understanding of indication, potential side effect and actions to be taken if side effects occur. Double identification of patient completed with patient/parent/patient mill representative using name and prior to administration, and patient tolerated immunization(s) administration without incident. * Maura Canela - 08/14/2022 1:08 PM EST Patient was identified by name and date of . Maura WilhelmoPatient at risk for falls:No Falls Risk protocol implemented: No * Saskia Madison APRN-CNP - 08/14/2022 1:00 PM EST Images [...] B27 positive) 2003 Followed with Rheum at [facility] Open fracture of other and unspecified [...] likely 2/2 hemolytic anemia) -discuss with transplant psychological anthropologist, Dr. Gary and arrange for f/u in [...] and/or coordination of care. Sincerely, KONRAD Quevedo [facility] Division of Gastroenterology & Hepatology 08/15/22 8:19 AM GI clinic documented in this [id number] History of Present illness Narrative* Jasmyne Grimaldo [...] clinic. Jasmyne Grimaldo RN documented in this [id number] Instructions* Patient Instructions* Emily Dunn RN - [...] to schedule your Upper Endoscopy. [facility] [address] [place], [place] [address] [facility] Thursday-Thursday 8A-4P [facility] [address], [place] [id number] Thursday-Thursday 8A-4P [facility]. [address], [place] [id number] Thursday-Thursday 8A-4P Centralized GI Procedure scheduling: UPPER [...] hours, please call to speak to the [facility] nurse school operations manager. If you need to cancel this appointment, please call , at least 48 hours before your appointment time. For additional health or procedure preparation information call the [employer] line at . The [employer] line is open 24 hours a day including weekends and holidays. PLEASE BRING IN YOUR INSURANCE CARD AND MEDICATIONS OR LIST OF CURRENT MEDICATIONS. PLEASE LEAVE JEWELRY AT HOME AND DO NOT WEAR HEAVY FRAGRANCE OR NAIL PORTUGUESE WE MAKE EVERY ATTEMPT TO MAINTAIN OUR [...] any problems or questions, please call the [facility] line at [phone]. documented in this [id number] Instructions* Patient Instructions* Emily Dunn RN - [...] to schedule your Upper Endoscopy. [facility] [address] [id number] [facility] Thursday-Thursday 8A-4P [facility] [address], [place] [address] Thursday-Thursday 8A-4P [facility]. [address], [place] [id number] Thursday-Thursday 8A-4P Centralized GI Procedure scheduling: UPPER [...] hours, please call to speak to the [facility] nurse school operations manager. If you need to cancel this appointment, please call , at least 48 hours before your appointment time. For additional health or procedure preparation information call the [employer] line at . The [employer] line is open 24 hours a day including weekends and holidays. PLEASE BRING IN YOUR INSURANCE CARD AND MEDICATIONS OR LIST OF CURRENT MEDICATIONS. PLEASE LEAVE JEWELRY AT HOME AND DO NOT WEAR HEAVY FRAGRANCE OR NAIL PORTUGUESE WE MAKE EVERY ATTEMPT TO MAINTAIN OUR [...] any problems or questions, please call the [employer] line at [phone]. documented in this [id number] History of Present illness Narrative* Tanvir Black [...] B27 positive) 2003 Followed with Rheum at [facility] Open fracture of other and unspecified [...] Center 08/14/2022 11:30 AM [facility] 12:00 PM ONC NURSE [facility] 08/14/2022 1:00 PM Saskia Madison, HEAD WAITER/WAITRESS-FIRE EXTINGUISHER TESTER Liver [facility] Tanvir Black MD Hematology/Oncology 05/06/22 4:11 PM * [...] 100 %. Sally Chavez documented in this [id number] History of Present illness Narrative* Leslie Canela [...] results. Leslie Canela RN documented in this [id number] History of Present illness Narrative* Rosita Le RN - 03/13/2022 12:29 PM EDT Patient was identified by name and date of . 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 Blood obtained via venipuncture from [facility] lgkoe06Z 3/4in butterfly needle. Blood specimen sent to lab. Pt tolerated procedure well. Pt verbalized follow up instructions and discharged home in stable condition. Rosita Le RN documented in this [id number] History of Present illness Narrative* Tanvir Black [...] B27 positive) 2003 Followed with Rheum at [facility] Open fracture of other and unspecified [...] to oncologist closer to his home in [facility]. Patientto call back with name of mercerizing range feeder and fax number.will keep care here with [...] AM MAIN CARD TEST-311 Non Inv Card [facility] 05/06/2022 10:30 AM Tanvir Black MD [facility] 05/06/2022 11:00 AM ONC NURSE [facility] Tanvir Black MD Hematology/Oncology 03/13/22 5:20 PM * Jojo Garcia - 03/13/2022 11:41 AM EDT .Patient was identified by name and date of . Jojo Garcia .Patient at risk for falls:Yes Falls Risk protocol implemented: No documented in this [id number] Hospital Discharge instructions Patient Education 02/17/2022 16:25:10 [...] care provider. Do not drink alcohol. Take xqtv-cvg-viuyipk and prescription medicines only as told by [...] 08/24/2006 Document Revised: 05/26/2019 Document Reviewed: 05/26/2019 [employer] Patient Education 2020 [employer]. 02/17/2022 16:25:10 Cellulitis, Adult Cellulitis, Adult Cellulitis [...] Follow these instructions at home: Medicines Take elho-cfr-bloemqj and prescription medicines only as told by [...] such as antibiotic medicines or antihistamines. Take loco-urz-ybllvil and prescription medicines only as told by [...] 06/03/2006 Document Revised: 01/13/2019 Document Reviewed: 01/13/2019 [employer] Patient Education 2020 [employer] 02/17/2022 16:25:10 Hypokalemia Hypokalemia Hypokalemia means that [...] hospital. Follow these instructions at home: Take pfyc-hfx-xovgnwa and prescription medicines only as told by [...] cantaloupe, kiwi, oranges, tomatoes, asparagus, and potatoes. ?Gray juice. ?Tomato juice. ?Red meats. ?Yogurt. Keep [...] 08/24/2006 Document Revised: 04/06/2019 Document Reviewed: 04/06/2019 [employer] Patient Education 2020 [employer]. 02/17/2022 16:25:10 Peripheral Edema Peripheral Edema Peripheral [...] by your health care provider. Medicines Take ghzk-knb-kuqfwad and prescription medicines only as told by [...] 10/01/2005 Document Revised: 05/18/2019 Document Reviewed: 05/18/2019 [employer] Patient Education 2020 [employer]. Follow Up Care 02/17/2022 12:28:34 With:Milagros Lofton Address:Unknown When:02/20/2022 15:52:54 Comments:Return to the emergency room if your pain gets worse, fever, swelling gets worse or any new symptoms With:Colby Link Address: [address] [place] [address] Business (1) When:Within 3 Day(s) [facility]13[facility]20[facility] Evaluation + Plan noteExtracted from: Title:ED Note Author:Christi Luo M.D. te:02/17/22 1. Pedal edema (R60.0: Local ized edema) 2. Cellulitis of scrotum (N49.2: Inflammatory disorders of scrotum) 3. Thrombocytopenia (D69.6: Thrombocytopenia, unspecified) 4. Hypokalemia (E87.6: Hypokalemia) Orders: clindamycin, 300 mg = 2 cap(s), Oral, QID, # 56 cap(s), Refills(s) 0, Pharmacy: [place] [id number] [address], 170.2, cm, 02/17/22 12:34:00 [...] Charcoal 02/17/22 * Blood Culture Charcoal 02/17/22 [facility]06-07-2022 Telephone encounter Note* Telephone Encounter - Kulwinder Dozier, PharmD - 02/11/2022 1:58 PM EDT Chemotherapy [...] Kulwinder Dozier PharmD, PharmD. Oncology Specialty Pharmacist [id number] Date: 02/11/22 [id number] Miscellaneous Notes* Telephone Encounter - Kulwinder Dozier [...] Kulwinder Dozier PharmD, PharmD. Oncology Specialty Pharmacist [id number] Date: 02/11/22 * Telephone Encounter - Kulwinder Dozier PharmD - 02/11/2022 12:39 PM EDT Images from the original note were not included. [facility] Oncology Specialty Pharmacy Referral [facility] received a prescription for MMF (Cellcept) for this patient on 02/11/2022. [facility] has been contacted to initiate a Prior Authorization for this medication. This is an immunomodulatory agent Patient Information: Will Anderson is a 36 year old male [id number] [facility] [address] Insurance on file: [employer] ID: [id number] BIN: [id number] PCN: -- Group: [id number] Specialty Medication Medication and dosing: mycophenolate (CELLCEPT) 500 MG tablet- Take 2 tablets by mouth 2 times daily. 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 [...] pharmacist once medication is approved. Questions for [facility] may be directed to [phone] option 3. Thank you for the referral, Kulwinder Dozier PharmD Oncology Specialty Pharmacist [phone] documented in this [id number] Telephone encounter Note* Telephone Encounter - Kulwinder Dozier PharmD - 02/11/2022 12:39 PM EDT Images from the original note were not included. [facility] Oncology [facility]ty Pharm[facility] Referral [facility] received a prescription for MMF (Cellcept) for this patient on 02/11/2022. [facility] has been contacted to initiate a Prior Authorization for this medication. This is an immunomodulatory agent Patient Information: Will Anderson is a 36 year old male [address] [place] [id number] Insurance on file: [employer] ID: [id number] BIN: [id number] PCN: -- Group: [id number] Specialty Medication Medication and dosing: mycophenolate (CELLCEPT) 500 MG tablet- Take 2 tablets by mouth 2 times daily. 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 [...] pharmacist once medication is approved. Questions for [facility] may be directed to [phone] option 3. Thank you for the referral, Kulwinder Dozier PharmD Oncology Specialty Pharmacist [phone] [id number] History of Present illness Narrative* Cyn Hopper RN - 02/11/2022 11:45 AM EDT Patient was identified by name and date of . 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 Blood obtained via venipuncture from RAC using 23G 3/4in butterfly needle. Blood specimen sent to lab. Pt tolerated procedure well, dressing applied. AVS provided and reviewed. Pt verbalized follow up instructions and discharged home in stable condition. Cyn Hopper RN documented in this [id number] Miscellaneous Notes* Telephone Encounter - Liseth Santana [...] patient 2. [place] [id number] (Pharmacy Prior Authorization Pool) Patient advised to follow up with provider's office if they have any further questions or if no answer after 3 business days. Providers office is to contact patient to advise of medication changes/next steps documented in this [id number] Miscellaneous Notes* Care Plan Note - Rosa [...] Outcome: Adequate for Discharge 01/17/2022 1626 by Roas Mensah RN Outcome: Progressing 01/17/2022 1625 by [...] Outcome: Adequate for Discharge 01/17/2022 1626 by Roas Mensah RN Outcome: Progressing 01/17/2022 1625 by [...] RNF BARRIERS TO PLAN OF CARE: None FILLING STATION EQUIPMENT MECHANIC RN Jessee Callahan RN DAY SHIFT RN JSarah Daily RN * Transfer Note - Keo [...] was yellow x 1 day. While at [facility], patient was HDS, however noted with significant bru ising and edema of LUE. Reportedly, trauma surgery was consulted at [facility] and there was initially concern for compartment syndrome and fasciotomy was considered, but ultimately did not occur at the time. The trauma attending Dr. Du recommended orthopedic consultation upon arrival to the [facility] MICU. While at [facility] labs significant for indirect hyperbilirubinemia, and acute macrocytic anemia 6.9 requiring 1u pRBC and [address] Abd/Pelvis W/ Contrast showed liver cirrhosis and steatosis without CBD dilation. Received morphine, ceftriaxone, protonix, thiamine. Started on NS for rhabdo. Patient transferred to [facility] for tertiary center care. While in the [facility] MICU, Ortho following - request [...] (PRN) Note: Family updated ? 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 SECLUSION/RESTRAINTS PROVIDER RPKA-ZJ-QMBI EVALUATION NOTE Will Anderson was evaluated on [...] home-going needs (PRN) Note: Family updates Sw/case loader operator as needed Problem: Safety: Goal: Free from [...] none BARRIERS TO PLAN OF CARE: none FILLING STATION EQUIPMENT MECHANIC RN Jessee Unger RN DAY SHIFT IRENA Graham RN * 1:1 Interaction - Hannah Leggett MD - 01/13/2022 4:30 AM EDT Images from the original note were not included. SECLUSION/RESTRAINTS PROVIDER DVYW-EV-UYSQ EVALUATION NOTE Will Anderson was evaluated on [...] None BARRIERS TO PLAN OF CARE: None FILLING STATION EQUIPMENT MECHANIC RN : Elsa Jenkins RN DAY SHIFT [...] original note were not included. SECLUSION/RESTRAINTS PROVIDER AWGW-OG-BKGD EVALUATION NOTE Will Anderson was evaluated on [...] none BARRIERS TO PLAN OF CARE: none FILLING STATION EQUIPMENT MECHANIC IRENA Canales DAY SHIFT IRENA Childers * 1:1 Interaction - Hannah Leggett MD - 01/11/2022 1:39 AM EDT Images from the original note were not included. SECLUSION/RESTRAINTS PROVIDER FOEI-QK-LEFO EVALUATION NOTE Will Anderson was evaluated on [...] remain still for MRI. Dr. Antoinette abel FILLING STATION EQUIPMENT MECHANIC IRENA Jameson DAY SHIFT IRENA Childers * 1:1 Interaction - Abhinav De La Vega DO - 01/10/2022 2:31 PM EDT SECLUSION/RESTRAINTS PROVIDER XQEZ-ML-XQPY EVALUATION NOTE Will Anderson was evaluated on [...] original note were not included. SECLUSION/RESTRAINTS PROVIDER DYAM-BL-RCVR EVALUATION NOTE Will Anderson was evaluated on [...] were discussed with the patient and/or legal mill representative. The risks, benefits and alternatives were reviewed. Questions regarding blood transfusions were answered. The patient /or the patient s legal mill representative agree with the plan for transfusion [...] - 01/09/2022 9:02 AM EDT SECLUSION/RESTRAINTS PROVIDER YVBJ-FF-ECIL EVALUATION NOTE Will Anderson was evaluated on [...] care provided per ICU protocol and procedure. 01/09/2022 06 by Bang Jameson RN Outcome: Progressing Problem: Safety: Goal: Free from injury during hospitalization 01/09/2022 06 by Bang Jameson RN Outcome: [...] original note were not included. SECLUSION/RESTRAINTS PROVIDER XUMC-ID-EOTD EVALUATION NOTE Will Anderson was evaluated on [...] - 01/08/2022 10:46 PM EDT SECLUSION/RESTRAINTS PROVIDER SEOM-TO-GOIO EVALUATION NOTE Will Anderson was evaluated on [...] of harm to self documented in this [id number] Hospital course Narrative* Afua Umanzor MD - 01/17/2022 3:31 PM EDT Images from the original note were not included. DISCHARGE SUMMARY [address] [address] Will Anderson Date of : 1985 36 [...] Referral Type: Service Level Authorization Referral Location: [facility] ORTHO HAND Number of Visits Requested: 3 Expiration Date: 01/17/23 HEMATOLOGY SERVICE REQUEST Referral Priority: Routine Referral Type: Service Level Authorization Referral Location: [facility] HEMATOLOGY Number of Visits Requested: 3 Expiration Date: 01/17/23 LIVER SERVICE REQUEST Referral Priority: Routine Referral Type: Service Level Authorization Referral Location: [facility] LIVER Number of Visits Requested: 3 Expiration Date: 01/17/23 Future Appointments Date Time Provider Department Center 01/20/2022 11:00 AM Abbey Alvarez MD Liver [facility] 01/23/2022 11:45 AM Ronen Welch MD [facility] ORTHO [facility] 02/11/2022 10:00 AM [facility] Condition at Discharge Improved Activity [...] bilirubin may falsely lower creatinine 169 [phone] 6.4 2.6 2.10 11.1 Comment: Elevated bilirubin [...] followed by pain. He was seen at [facility] and transferred to ICU He was found [...] he will get assistance from rehab in [place] for alcohol abuse. On the day of discharge, patient was stable. Left arm swelling was improving. He has good peripheral pulses in the left arm. He is alert and oriented x3. 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 Current Discharge [...] follow-up Afua umanzor MD documented in this [id number] History of Present illness Narrative* Kennedi Best [...] ETOH resources. Pt declines assistance. RAI Claudio, JOSH-S [phone] * Afua Umanzor MD - 01/16/2022 8:18 AM EDT Images from the original note were not included. GENERAL MEDICAL FLOOR DAILY PROGRESS NOTE Will Anderson [id number] 01/16/2022 Length of stay: 8 day(s) SUBJECTIVE: Patient [...] 30 min AC 40 mg at 01/16/22 0919 vitamin B-1 (THIAMINE) tablet 100 mg Oral Daily 100 mg at 01/16/22 0918 folic acid 1 MG tablet 1 mg Oral Daily 1 mg at 01/16/22 0919 copper chloride 2 mg in sodium chloride 0.9 % 250 mL iv infusion 2 mg Intravenous Daily 125 mL/hr at 01/16/22 0929 2 mg at 01/16/22 0929 ondansetron (ZOFRAN) 4 MG/2ML injection 4 mg [...] CO2 Gap Glu BUN Cr Ca 01/16/22 050 132 3.7 98 24 14 102 9 [...] Bili T Bili Alk Phos ALT AST 01/16/22502 6.3 2.7 2.30 12.7 Comment: Elevated bilirubin [...] ATTENDING NOTE LEON ASNTANA MD - PIN [id number] I saw and evaluated the patient. I [...] may falsely lower creatinine 182 65 104 01/14/225 6.4 2.6 2.20 11.5 Comment: Elevated bilirubin may falsely lower creatinine 177 62 104 01/13/22251 6.2 2.6 2.10 11.4 Comment: Elevated bilirubin may falsely lower creatinine 169 63 124 CBC/PT/INR WBC RBC Hgb Hct MCV RDW Plt PT aPTT INR 01/15/22326 8.9 1.88 7.3 21.1 113 24.4 74 01/15/22 0327 1.89 01/14/22354 7.3 1.91 7.3 21.3 112 24.1 65 01/14/22354 1.94 01/13/22251 7.3 1.76 6.7 19.3 110 24.4 67 01/13/22251 2.05 01/12/22 165 7.8 1.73 6.6 19.5 [...] Director, Pulmonary, Critical Care and Sleep Medicine [facility] * Reanna Doyle, [facility] - 01/15/2022 9:24 AM EDT Pharmacy Intravenous [...] been updated per consult agreement. REANNA DOYLE [facility] Department of Pharmacy Services * Keo Gaona MD - 01/15/2022 7:51 AM EDT Images from the original note were not included. [facility] Intensive Care Unit Critical Care Progress Note Will Anderson 36 year old [id number] lbs MRN/Room: [id number]/CP3-303/1 Length of stay: 7 day(s) Summary 36M [...] was yellow x 1 day. While at [facility], patient was HDS, however noted with significant bru ising and edema of LUE. Reportedly, trauma surgery was consulted at [facility] and there was initially concern for compartment syndrome and fasciotomy was considered, but ultimately did not occur at the time. The trauma attending Dr. Du recommended orthopedic consultation upon arrival to the [facility] MICU. While at [facility] labs significant for indirect hyperbilirubinemia, and acute macrocytic anemia 6.9 requiring 1u pRBC and [address] Abd/Pelvis W/ Contrast showed liver cirrhosis and steatosis without CBD dilation. Received morphine, ceftriaxone, protonix, thiamine. Started on NS for rhabdo. Patient transferred to [facility] for tertiary center care. While in the [facility] MICU, Ortho following - request [...] 7.3 1.76 6.7 19.3 110 24.4 67 01/13/22251 2.05 01/12/22 1655 7.8 1.73 6.6 19.5 [...] Bili T Bili Alk Phos ALT AST 05/11/22 0327 6.5 2.6 2.10 10.8 Comment: Elevated [...] improving with IV hydration Hyperbilirubinemia worsening since [facility]. DDx favors hemolysis - could be from [...] No overt GIB. s/p 1u pRBC from [facility], did not increment appropriately - only 6.9 [...] films. 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 MICU ATTENDING NOTE LEON SANTANA MD - PIN [id number] I saw and evaluated the patient. I [...] medical issues requiring critical care management include: [employer] CERTIFIED NETWORK PROFESSIONAL FAILURE. HEPATIC FAILURE . Additional findings and [...] 19.5 113 25.3 69 01/12/22 0341 2.12 01/12/22339 8.0 1.72 6.5 18.7 109 25.4 59 WBC/Diff Neutro% Segs% Bands% Lymphs% Monos% Eos% Basos% 01/14/22 035 66.0 20.0 9.0 2.0 01/13/22251 69.0 8 15.0 1.0 01/12/221654 74.0 3 8.0 12.0 01/12/22339 66.4 20.7 11.3 0.9 0.7 copper chloride [...] Director, Pulmonary, Critical Care and Sleep Medicine [facility] * Keo Gaona MD - 01/14/2022 7:42 AM EDT Images from the original note were not included. [facility] Medical Intensive Care Unit Critical Care Progress Note Will Anderson 36 year old 136.685 lbs MRN/Room: [id number]/CP3-303/1 Length of stay: 6 day(s) Summary 36M [...] was yellow x 1 day. While at [facility], patient was HDS, however noted with significant bru ising and edema of LUE. Reportedly, trauma surgery was consulted at [facility] and there was initially concern for compartment syndrome and fasciotomy was considered, but ultimately did not occur at the time. The trauma attending Dr. Du recommended orthopedic consultation upon arrival to the [facility] MICU. While at [facility] labs significant for indirect hyperbilirubinemia, and acute macrocytic anemia 6.9 requiring 1u pRBC and [address] Abd/Pelvis W/ Contrast showed liver cirrhosis and steatosis without CBD dilation. Received morphine, ceftriaxone, protonix, thiamine. Started on NS for rhabdo. Patient transferred to [facility] for tertiary center care. 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 [facility] Medical Intensive Care Unit Critical Care Progress Note Will Anderson 36 year old [id number] lbs MRN/Room: [id number]/CP3-303/1 Length of stay: 5 day(s) Summary 36M [...] was yellow x 1 day. While at [facility], patient was HDS, however noted with significant bru ising and edema of LUE. Reportedly, trauma surgery was consulted at [facility] and there was initially concern for compartment syndrome and fasciotomy was considered, but ultimately did not occur at the time. The trauma attending Dr. Du recommended orthopedic consultation upon arrival to the [facility] MICU. While at [facility] labs significant for indirect hyperbilirubinemia, and acute macrocytic anemia 6.9 requiring 1u pRBC and [address] Abd/Pelvis W/ Contrast showed liver cirrhosis and steatosis without CBD dilation. Received morphine, ceftriaxone, protonix, thiamine. Started on NS for rhabdo. Patient transferred to [facility] for tertiary center care. While in the [facility] MICU, Ortho following - request [...] 1500 lactated ringers 150 mL/hr at 01/13/22 09 acetaminophen 500 mg Q6H PRN LORazepam 2 mg Q2H PRN Objective Patient Vitals for the past 24 hrs: BP Temp Temp src Pulse Resp SpO2 O2 Device 01/13/22899 135/72 -- -- 81 16 90 % Room air 01/13/22 0830 -- -- -- 85 18 88 % Room air 01/13/22 08 132/72 -- -- 85 17 92 % [...] -- -- 86 17 93 % -- 01/12/221999 151/80 -- -- 85 18 94 % [...] Glu BUN Cr Ca Mg PO4 01/13/22 025 135 3.4 99 29 10 [...] Bili T Bili Alk Phos ALT AST 01/13/22251 6.2 2.6 2.10 11.4 Comment: Elevated [...] 152 Comment: Notified IRENA NICHOLAS MD 01/13/22 025 140 01/12/22 2217 140 INR (no units) [...] No overt GIB. 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 MICU ATTENDING NOTE LEON SANTANA MD - PIN [id number] I saw and evaluated the patient. I [...] management include: ACUTE BLOOD LOSS ANEMIA and CISCO CERTIFIED NETWORK PROFESSIONAL FAILURE. HEPATIC FAILURE . Additional findings and [...] Glu BUN Cr Ca Mg PO4 01/13/22 025 135 3.4 99 29 10 [...] 19.5 113 25.3 69 01/12/22 0341 2.12 05/08/22 0340 8.0 1.72 6.5 18.7 109 25.4 [...] Director, Pulmonary, Critical Care and Sleep Medicine [facility] * Codi Thurman LSW - 01/13/2022 9:49 AM EDT ICU Note: SW continues to follow for positive screen for low risk suicide and abuse. SW spoke with bedside RN who reported pt alert but drowsy. SW to follow up with pt to attempt to address. Codi [facility] Care Coordination Department 10:59 AM Addendum: SW met with pt at bedside. Pt sleeping upon SW entering room. Pt restrained, with mits. SW did not awake to name being called several times. SW will follow up with pt as appropriate to address. Codi [facility] Care Coordination Department * Elizabeth Unger RN [...] ATTENDING NOTE LEON SANTANA MD - PIN [id number] I saw and evaluated the patient. I [...] management include: ACUTE BLOOD LOSS ANEMIA and CISCO CERTIFIED NETWORK PROFESSIONAL FAILURE, HEPATIC FAILURE. Additional findings and notation: [...] Bili Alk Phos ALT AST Amylase Lipase 01/12/22 0341 6.4 2.6 2.10 11.1 Comment: [...] Director, Pulmonary, Critical Care and Sleep Medicine [facility] * Keo Gaona MD - 01/12/2022 8:32 AM EDT Images from the original note were not included. [facility] Medical Intensive Care Unit Critical Care Progress Note Will Anderson 36 year old [id number] lbs MRN/Room: [id number]/CP3-303/1 Length of stay: 4 day(s) Summary 36M [...] was yellow x 1 day. While at [facility], patient was HDS, however noted with significant bru ising and edema of LUE. Reportedly, trauma surgery was consulted at [facility] and there was initially concern for compartment syndrome and fasciotomy was considered, but ultimately did not occur at the time. The trauma attending Dr. Du recommended orthopedic consultation upon arrival to the [facility] MICU. While at [facility] labs significant for indirect hyperbilirubinemia, and acute macrocytic anemia 6.9 requiring 1u pRBC and [address] Abd/Pelvis W/ Contrast showed liver cirrhosis and steatosis without CBD dilation. Received morphine, ceftriaxone, protonix, thiamine. Started on NS for rhabdo. Patient transferred to [facility] for tertiary center care. While in the [facility] MICU, Ortho following - request [...] dexmedetomidine (PRECEDEX) IV infusion orderable 1.2 mcg/kg/hr (01/12/22799) Tube feed 20 mL/hr at 01/09/22 1500 lactated ringers 150 mL/hr at 01/12/22 08 acetaminophen 500 mg Q6H PRN LORazepam 2 mg Q2H PRN Objective Patient Vitals for the past 24 hrs: BP Temp Temp src Pulse Resp SpO2 O2 Device 01/12/22799 -- -- -- -- -- -- Room air 01/12/22 0731 -- 98.3 F (36.8 C) Axillary -- -- -- -- 01/12/22699 137/78 -- -- 88 18 97 % -- 01/12/22 06 130/104 -- -- 103 26 97 % [...] No overt GIB. s/p 1u pRBC from Paulino-Jarrod, did not increment [...] Nexium 40mg IV BID # LUE swelling 2/ trauma Plan: - Ortho consulted, appreciate recs: no fx on plain films. 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 [facility] Medical Intensive Care Unit Critical Care Progress Note Will Anderson 36 year old [id number] lbs MRN/Room: [id number]/CP3-139/1 Length of stay: 3 day(s) Summary 36M [...] was yellow x 1 day. While at [facility], patient was HDS, however noted with significant bru ising and edema of LUE. Reportedly, trauma surgery was consulted at [facility] and there was initially concern for compartment syndrome and fasciotomy was considered, but ultimately did not occur at the time. The trauma attending Dr. Du recommended orthopedic consultation upon arrival to the [facility] MICU. While at [facility] labs significant for indirect hyperbilirubinemia, and acute macrocytic anemia 6.9 requiring 1u pRBC and [address] Abd/Pelvis W/ Contrast showed liver cirrhosis and steatosis without CBD dilation. Received morphine, ceftriaxone, protonix, thiamine. Started on NS for rhabdo. Patient transferred to [facility] for tertiary center care. While in the [facility] MICU, Ortho following - request [...] recent vitals, Afebrile currently (Tmax 100.7 @ / 1945), HR 80's, Blood pressure 122/53, 96% [...] Bili T Bili Alk Phos ALT AST 01/11/22 0116 5.7 2.6 2.20 11.4 Comment: [...] improving with IV hydration Hyperbilirubinemia worsening since Paulino-Davidson. 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 I [...] BUN Cr Ca Mg PO4 01/11/22 011 2.0 01/11/22 011 133 3.4 [...] Bili Alk Phos ALT AST Amylase Lipase 01/11/22115 5.7 2.6 2.20 11.4 Comment: Elevated bilirubin may falsely lower creatinine 95 57 143 01/10/22 0353 6.0 2.7 2.60 11.1 Comment: Elevated bilirubin may falsely lower creatinine 87 54 147 01/09/22 0348 6.0 2.7 2.50 11.2 Comment: Elevated bilirubin may falsely lower creatinine 92 47 124 CBC/PT/INR WBC RBC Hgb Hct MCV RDW Plt PT aPTT INR 01/11/22115 7.3 1.54 5.9 16.7 108 23.6 62 [...] 01/10/22 1131 75.3 12.7 10.6 0.1 1.2 01/10/22352 72.9 15.4 9.7 0.6 1.4 01/09/22 1722 64.8 19.4 13.7 1.5 0.7 01/09/228 65.0 20.2 12.5 1.4 0.9 01/08/22 182 63.0 17.5 16.9 1.9 0.7 potassium chloride [...] Possible cellulitis of chest wall Ceftriaxone day 4 +) Nutrition -- Tube feeds +) PT/OT -- +) Sedation/Analgesia -- +) DVT/GI prophylaxis -- SCDs PPI +) Lines/Catheters -- PIVs No Rosales +) Social/Goals of Care -- Parents Code Status: Full Code Leon Santana M.D. Director, Pulmonary, Critical Care and Sleep Medicine [facility] * Candido Lerner MD - 01/10/2022 [...] and 1u FFP and was transfered to [facility]-ICU for further management. On (01/08) [...] Candido Lerner MD Hematology- Oncology PGY-V Pager [phone] Associated attestation - Rd Weaver MD - [...] with GI attending, Dr. Haley Gary MD ([id number]) and Ulysses Solomon MD. Primary team updated via M2TE[employer] secure chat. We will sign off but please don't hesitate to reach out with questions or concerns. Abbey Alvarez MD Gastroenterology Fellow Personal Pager [phone] GI Consult Pager (nights and weekends) [phone] * Francisco Marino MD - 01/10/2022 9:13 AM EDT MICU ATTENDING NOTE FRANCISCO MARINO MD - PIN [id number] I saw and evaluated the patient. I [...] ACUTE BLOOD LOSS ANEMIA, HEPATIC FAILURE, and CISCO CERTIFIED NETWORK PROFESSIONAL FAILURE. Additional findings and notation: Will Anderson is a 36 year old male with PMH of EtOH dependence who presented with 2 days of L arm pain to [facility] ED. 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 Pulmonary, Critical Care and Sleep Medicine [facility] * Abhinav De La Vega DO - 01/10/2022 7:16 AM EDT Images from the original note were not included. [facility] Medical Intensive Care Unit Critical Care Progress Note Will Anderson 36 year old [id number] lbs MRN/Room: [id number]/CP3-139/1 Length of stay: 2 day(s) Summary 36M [...] was yellow x 1 day. While at [facility], patient was HDS, however noted with significant bru ising and edema of LUE. Reportedly, trauma surgery was consulted at [facility] and there was initially concern for compartment syndrome and fasciotomy was considered, but ultimately did not occur at the time. The trauma attending Dr. Du recommended orthopedic consultation upon arrival to the [facility] MICU. While at [facility] labs significant for indirect hyperbilirubinemia, and acute macrocytic anemia 6.9 requiring 1u pRBC and [address] Abd/Pelvis W/ Contrast showed liver cirrhosis and steatosis without CBD dilation. Received morphine, ceftriaxone, protonix, thiamine. Started on NS for rhabdo. Patient transferred to [facility] for tertiary center care. 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 DDx favors hemolysis - could be from [...] No overt GIB. s/p 1u pRBC from Pycno, did not increment appropriately - only 6.9 [...] (deescalation of antibiotics): Ceftriaxone Social- Dad Rich [phone] and mom Code Status: Full Code Dispo: MICU Plan is preliminary until discussed with attending Abhinav De La Vega DO PGY-2 [phone] (click to text page) * Bang Jameson [...] ATTENDING NOTE FRANCISCO MARINO MD - PIN [id number] I saw and evaluated the patient. I [...] ACUTE BLOOD LOSS ANEMIA, HEPATIC FAILURE, and CISCO CERTIFIED NETWORK PROFESSIONAL FAILURE. Additional findings and notation: Will Anderson is a 36 year old male with PMH of EtOH dependence who presented with 2 days of L arm pain to [facility] ED. 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 Pt is currently confused, restrained and unable to participate in conversation at this time. SW will follow up with pt to address as appropriate. Codi Thurman [facility] Care Coordination Department * Ivy Chua MD - 01/09/2022 7:34 AM EDT Images from the original note were not included. [facility] Medical Intensive Care Unit Critical Care Progress Note Will Anderson 36 year old 149.6925 lbs MRN/Room: [id number]/CP3-139/1 Length of stay: 1 day(s) Summary 36M [...] skin was yellow x 1 day. At [facility], pt was HDS. Noted with significant bruising and edema of LUE. Reportedly, trauma surgery was consulted at [facility] and there was initially concern for compartment syndrome and fasciotomy was considered, but ultimately did not occur at the time. The trauma attending Dr. Du recommended orthopedic consultation upon arrival to the [facility] MICU. Labs significantfor indirect hyperbilirubinemia, acute macrocytic anemia 6.9. CT abd/pel with contrast showed livercirrhosis and steatosis; no CBD dilation. Received morphine, ceftriaxone, protonix, thiamine. Received 1u pRBC and 1u FFP at [facility]. Started on NS for rhabdo. Transferred to [facility] for tertiary center care. Ortho following - request MR L elbow for assessment of possible complete vs [...] 01/08/22 182 63.0 17.5 16.9 1.9 0.7 01/08/22852 64.5 17.9 15.4 1.4 0.8 Basic Metabolic Panel Na K Cl CO2 Gap Glu BUN Cr Ca Mg PO4 01/09/22347 133 4.0 100 27 10 142 7 0.41 Comment: Grossly icteric; may falsely decrease creatinine 8.1 01/08/22 08 1.7 01/08/22852 129 3.7 95 22 16 91 5 [...] for overt GIB -s/p 1u pRBC from [facility], did not increment appropriately - only 6.9 [...] not reliable given recent pRBC infusion at [facility] - Large bore PIVs -transfuse Hb <7 -TSH elevated, but subsequent T4 wnl -- subclinical hypothyroidism. #Thrombocytopenia -as sequelae of cirrhosis Musculoskeletal #LUE swelling 2/2 trauma -ortho consulted, appreciate recs: no fx on plain films. Ortho has ordered MR Tripp elbow -will f/u ortho recs -Tube Feeds [...] (deescalation of antibiotics): ctx Social- dad Rich [phone] and mom Code Status: Full Code Dispo: MICU Staffed with attending needle bar molder Dr. Marino. Ivy Chua MD Internal Medicine [...] n/a BARRIERS TO PLAN OF CARE: n/a FILLING STATION EQUIPMENT MECHANIC RN DAY SHIFT RN Chao * Lisa Macedo - 01/08/2022 1:33 PM EDT [facility] Spiritual Care Services Services provided for: Patient and Family Services initiated by: Staff Media Relations Intern Reason for services: Initial visit Narrative: Media Relations Intern knocked and entered patient's room to introduce self and share availability of spiritual care. Patient was sitting up in bed, awake and alert, visiting with his parents. Patient was polite and appreciative of visit but stated he had no spiritual care needs at this time. Interventions: Introduction of service Outcome: Patient aware of ceo & co founder availability Plan of Care: Follow-up not anticipated Lisa Macedo MDiv Staff Media Relations Intern, (she/her/hers) Ext: [phone] Pager: [phone] documented in this [id number] Consult note* Keith Bolivar, OT - 01/16/2022 [...] Dep Max Mod Min CG CS DS HI I Set-Up Cues Comment Feeding x Meal [...] With Patients permission ordered no equipment via M2TECH Order. If any questions contact [facility] DME Provider at [phone]. 6 Clicks Daily Activity OT 01/16/2022 Help [...] Guard Assist/Supervision 4 - Non = Modified Parker/Independent ASSESSMENT: ASSESSMENT: Will Anderson is performing functional [...] NA = Not Assessed, I = Independent, HI = Modified Independent, Sup = Supervised, Set [...] Patient seen from 2:06pm to 2:14pm on [facility] unit for 8 minute treatment. SUBJECTIVE: Patient [...] Dep Max Mod Min CG CS DS HI I Comment Roll to right sidelying x [...] With Patients permission ordered no equipment via M2TECH Order. If any questions contact [facility] DME Provider at [phone]. 6 Clicks Basic Mobility PT 01/16/2022 Difficulty [...] be completed by discharge from acute care): VIKY LOFTON ALL GOALS MET 1. Patient will improve [...] NA = Not Assessed, I = Independent, HI = Modified Independent, Sup = Supervised, Set [...] Dep Max Mod Min CG CS DS HI I Comment Rolling x Supine<>sit x Sitting trial x Transfer x Sit<>stand x Without an assistive device. Standing trial x x2 minutes in unsupported static standing. Ambulation x 400 feet without an assistive device. Pt demonstrated step-through gait pattern with improved steadiness with continued practice. Stairs x 12 stairs with unilateral rail. Pt negotiated stairs with a [id number] pattern. Education: Instructed pt in roles of [...] Guard Assist/Supervision 4 - Non = Modified Parker/Independent Pt resting in recliner at end of [...] Clinical Specialist in Neurologic Physical Therapy Pager: [phone] AAROM = active assisted range of motion [...] Protocol 01/14/22 0355 154 Comment: Follow Protocol 01/13/222125 185 Comment: Notified IRENA NICHOLAS MD 01/13/22 [...] % Nutrition Focused Physical Exam Muscle loss: Episcopal region: mild depression Clavicle region: visible but [...] ml/h continuously. No ordered water TF intake 5/ 560 ml 5/6 1020 ml 5/7 1380 ml 5/8 1440 ml 5/9 1440 ml Est needs: current wt 2038-8513 kcal/d 30-35 kcal/kg 95 g pro/d 1.5 [...] as mentation allows Mehreen Raza MS RD [facility] Pager [phone] () Dietitian school operations manager (7a-7p) pager: [phone] * Chioma Butler, KIYA - 01/14/2022 12:23 [...] joint effusion. MRI (L)UE: TBD Precautions/Activity Order: [place] Full Code Initiate Progressive Mobility Procedure Seizure Non-violent restraints Tube feed; clear liquid diet CIWA Per Ortho note 01/08/22: NWB (L)UE - maintain tasha wrap and elevation in pelon pillow for edema control, ortho hand will follow peripherally) PMHx:EtOH dependence Past Medical History: Diagnosis Date Closed fracture of angle of jaw (HCC) HLA B27 (HLA B27 positive) 2003 Followed with Rheum at [facility] Open fracture of other and unspecified [...] at Home: Lives alone. Parents can assist / if needed. Patient lives in a 2 [...] wrapped, (R) hand bruising and dorsal edema, dispatcher chief coal slurry, Pulse Oximeter, IV, Flexiseal, male External Catheter [...] Dep Max Mod Min CG CS DS HI I Set-Up Comment Feeding x x +Corpak, [...] Dep Max Mod Min CG CS DS HI I Set-Up Comment Toilet Transfers x Anticipate [...] improves Cognition: Orientation: Oriented to person Place: [facility] Current Date: 01/16/[birth year] Asked pt to state year: 2021 Follows Commands: one step commands, requires occasional repeat of directions and easily distracted Attention: difficulty with divided attention, easily distracted during task and difficulty with alternating attention Memory: Impaired - recalls incident ELECTRONIC WARFARE TECHNICAL Problem Solving: Impaired Safety/Judgement: requires cues for [...] With Patients permission ordered no equipment via M2TECH Order. If any questions contact [facility] DME Provider at [phone]. 6 Clicks Daily Activity OT 01/14/2022 Help [...] Guard Assist/Supervision 4 - Non = Modified Parker/Independent ASSESSMENT: Recommend further therapy services in an [...] the development of plan and goals. Chioma Butler, OTR/L NA = Not Assessed, I = Independent, HI = Modified Independent, Sup = Supervised, Set [...] acute alcoholic hepatitis/Cirrhosis/Encp[ja;p[atju, suspected ETOH cirrhosis, indirect ltcoqusrscqrrja4pla, jaundice, elevated INR, thrombocytopenia, hyponatremia, rabdomyolysis Precautions: High falls sz Clear liquid diet Progressive mobility CIWA NWB LUE per ortho 5 note Procedures this admit: Ortho rec MRi R elbow but holding until stable US RUQ US 5/4 IMPRESSION: 1. 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 Home: 4 steps to enter with rail flight steps to bedroom/bathroom Assistance available: lives alone Has 24/7 assist if needed from mom and dad Equipment available: none OBJECTIVE: Appearance: secured entrance monitor, Pulse oximiter, BP cuff, IV, SCD male external catheter, rectal tube, corpack, bilateral UE wrist restraints, nallely Behavior: impaired, alert, cooperative, mildly confused Oriented Name + Place: impaired: [place]: Date: Impaired : [birth year]1985 with cues corrects [...] assistance Ambulation/Gait: pt ambulated 20' x2 with FIBER OPTIC SPLICER, with minimal assist, decreased step length decreasedbalance, [...] With Patients permission ordered no equipment via M2TECH Order. If any questions contact [facility] DME Provider at [phone]. 6 Clicks Basic Mobility PT 01/14/2022 Difficulty [...] acute alcoholic hepatitis/Cirrhosis/Encp[ja;p[atju, suspected ETOH cirrhosis, indirect zrhtilkzrzvbdxr5nlc, jaundice, elevated INR, thrombocytopenia, hyponatremia, rabdomyolysis Pt [...] NA = Not Assessed, I = Independent, HI = Modified Independent, Sup = Supervised, Set [...] and 1u FFP and was transfered to [facility]- ICU for further management. On (01/08) PM pt noted to have severe EtOH w/d requiring precedex gtt. Anemia/tcp/coaguloapthy workup upon arrival was significant for elevated LDH: 369, Hapto<15, reitc:5.2%, Tb:11.2, direct: 2.5, Hb: 6.7, plt:52, INR:1.9, AYLIN: polyspecific+, IgG+ concerning for AIHA for which hematology was consulted. Additionally, 5/4 evening course c/b severe etoh withdrawal requiring precedex gtt. Pt is currentlyseverely altered and unable to provide any history. Past Medical history Past Medical History: Diagnosis Date Closed fracture of angle of jaw (HCC) HLA B27 (HLA B27 positive) 2003 Followed with Rheum at [facility] Open fracture of other and unspecified [...] and 1u FFP and was transfered to [facility]- ICU for further management. On [...] Candido Lerner MD Hematology- Oncology PGY-V Pager [phone] Associated attestation - Rd Weaver MD - [...] Gap Glu BUN Cr Ca Mg PO4 01/09/22 0348 133 4.0 100 27 10 [...] and copper levels Mehreen Raza MS RD [facility] Pager [phone] () Dietitian school operations manager (7a-7p) pager: [phone] * Robert Allen MD - 01/08/2022 5:01 [...] the entire UE, causing him present to [facility] ED. While in the ED, the pt was noticed to be jaundiced and was found to be in acute liver failure. He was transferred to [facility] MICU for escalation of care. [...] Mcmullen DO and will be discussed with school operations manager ortho hand attending. Dr. Welch. Robert Allen MD HÉCTOR Orthopaedic Surgery, PGY 2 Pager [phone] After 5 pm and on weekends, please page the on-call resident ([phone]) with questions or concerns. 01/08/22 This consult was seen and staffed within 30 minutes of the initial consult. * Abbey Alvarez MD - 01/08/2022 9:22 AM EDT Associated Order(s): IP GASTROENTEROLOGY CONSULT Images from the original note were not included. Department of Gastroenterology and Hepatology Consult H&P Note GI Attending Physician: Dr. Ulysses Solomon MD Patient: Will Anderson Location: 3-139/1 Reason for Consult: GI bleed, hyperbilirubinemia HPI Will Anderson is a 36 year old male with history notable for EtOH use disorder, tobacco use disorder for whom gastroenterology was consulted for GI bleed and hyperbilirubinemia. Patient is admitted to MICU as a transfer from [facility] where he initially presented [...] multi vitamin, zinc, thiamine and folate supplementation. [place] assessors for alcohol withdrawal - Start daily [...] continue to follow with you. Personal Pager [phone] GI Consult Pager (nights and weekends) [phone] Abbey Alvarez MD Gastroenterology Fellow Division of Gastroenterology & Hepatology [facility] 01/08/22 Associated attestation - Ulysses Solomon [...] varices. Ulysses Solomon MD documented in this [id number] Hospital Discharge instructions* Instructions* Rosa Mensah, IRENA [...] is right for you. Copyright Copyright 2020 [employer]. and its affiliates and/or licensors. All rights [...] to see other specialists, such as formerly [facility] health doctor, psychiatrist, high school social science teacher, or alcohol counselor. Stay sober. Get involved [...] irritable. Where can I learn more? National [place] of Alcohol Abuse and Alcoholism http://www.niaaa.nih.gov/alcohol-health/crnuqrrw-cychiqp-srtquubtyhf/alcohol-use -disorders [facility] https://www.nhs.uk/conditions/alcohol-misuse/ Substance Abuse and Mental Health [...] is right for you. Copyright Copyright 2020 [employer]. and its affiliates and/or licensors. All rights reserved. Patient Education Alcohol Use ? When Is Drinking a Problem? The Basics Written by the doctors and editors at [employer] How do I know if I am [...] See a counselor (such as a psychologist, high school social science teacher, or psychiatrist) Take medicines Take part in [...] process is complete. This topic retrieved from [employer] on: Apr 04, 2020. Topic 78563 Version 9.0 Release: 28.4.6 - C28.294 2019 [employer] and/or its affiliates. All rights reserved. figure [...] and your health. Available at: http://rethinkingdrinking.niaaa.nih.gov. Graphic 54134 Version 1828.0 Consumer Information Use and Disclaimer [...] that is right for you.The use of [employer] content is governed by the [employer] Terms of Use. 2020 [employer]. All rights reserved. Copyright 2020 [employer] and/or its affiliates. All rights reserved. Patient [...] weights; are a rock climber, skier, gymnast, sort line worker, or tube cutter; or do other sports What are the [...] playing sports. Where can I learn more? [employer] https://orthoinfo.aaos.org/en/diseases--conditions/otkkms-poujsk-qxrk-at-the-elb ow Last Reviewed Date 2018-06-01 Consumer Information [...] is right for you. Copyright Copyright 2020 [employer]. and its affiliates and/or licensors. All rights [...] listed above. After business hours please call [facility] telegraphic typewriter operator chief at and ask for the orthopeadicresident school operations manager. For emergencies call [phone]. [facility] Upper Extremity and Hand Surgery Darci Allen, MD Enrique Ornelas, MD Poncho Devlin, MD Pool Villalobos, HEAD WAITER/WAITRESS-FIRE EXTINGUISHER TESTER Victorino Muhammad, MD Saroj Mojica, MD Ulysses Roper, MD Stacy Romero, MD Ella Sawyer, PAOmarC MD Michael Bergeron MD Kathryn Wozniak, PACory Orthopaedic Surgery Nurse Line Orthopaedic Surgery [...] is right for you. Copyright Copyright 2020 [employer]. and its affiliates and/or licensors. All rights [...] is right for you. Copyright Copyright 2020 [employer]. and its affiliates and/or licensors. All rights reserved. Patient Education Autoimmune Hemolytic Anemia The Basics Written by the doctors and editors at [employer] What is autoimmune hemolytic anemia? -- Autoimmune [...] process is complete. This topic retrieved from [employer] on: Apr 04, 2020. Topic 54315 Version 9.0 Release: 28.4.6 - C28.294 2019 [employer]. and/or its affiliates. All rights reserved. Consumer [...] that is right for you.The use of [employer] content is governed by the [employer] Terms of Use. 2020 [employer]. All rights reserved. Copyright 2020 [employer]. and/or its affiliates. All rights reserved. documented in this [id number] History and physical note* Francisco Marino MD - 01/08/2022 2:02 PM EDT MICU ATTENDING NOTE FRANCISCO MARINO MD - PIN [id number] I saw and evaluated the patient. I [...] 2 days of L arm pain to [facility] ED. 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 Later the also had accidental chest wall trauma after he was working with [employer] and hit himself in the chest. Patient [...] M.D. Pulmonary, Critical Care and Sleep Medicine [facility] * Ivy Chua MD - 01/08/2022 8:50 AM EDT [facility] Medical Intensive Care Unit History and Physical Examination Will Anderson 36 year old 0 lbs MRN/Room: [id number]/[id number]/1 Admit Date: 01/08/2022 : 1985 PCP Contact: [...] and examined upon arrival to MICU at [facility]. Pt states he was working [...] of aleve every morning for pain. At [facility], presenting VS were 36.3C/HR 105/RR18/BP 145/68/ SpO2 98% on room air. Ht 170.18cm,wt 75kg. received morphine, ceftriaxone, protonix, thiamine. Received 1u pRBC and 1u FFP at [facility]. Started on NS @ 150cc/h. Reportedly, trauma surgery was consulted at [facility] and there was initially concern for compartment syndrome and fasciotomy was considered, but ultimately did not occur at the time. The trauma attending Dr. Du recommended orthopedic consultation upon arrival to the [facility] MICU. Labs at OSH Alk [...] Plt 63 MCV 108 Neutrophils 44.8% Per [facility] ED note, 08/2020 Hb was 16.3 CK [...] Hospital (Active) Site Assessment WNL;Dressing intact 01/08/22 07 Infusion Status Port #1 Capped;Positive blood return 01/08/22 0706 Number of days: 1 Peripheral IV Access: 01/08/22 Right Hand Present on Arrival to Hospital (Active) Site Assessment WNL;Dressing intact 01/08/22705 Infusion Status Port #1 Capped;Positive blood return 01/08/22 07 Number of days: 0 Physical Exam: Physical [...] Pyogen Culture None Fibrosis-4 Score:13.24 Imaging: Per [facility] radiology read: CT abd/pel with con Impression: [...] ---> and please see images uploaded to [employer]. Resident's Assessment/Plan: Will Anderson is a 36 [...] for overt GIB -s/p 1u pRBC from [facility], did not increment appropriately - only 6.9 --> 7.2 after the unit of blood. -check cbc q12h -vitamin b12, folate -iron studies -2 Large bore PIVs -transfuse Hb <7 -TSH #Thrombocytopenia -as sequelae of cirrhosis Musculoskeletal #LUE swelling 2/2 trauma -ortho consulted, appreciate recs: no fx on plain films. Ortho has ordered MR Tripp elbow -will f/u ortho recs -NPO for [...] Code Status: Full Code Staffed with attending needle bar molder Dr. Marino. Ivy Chua MD Internal Medicine PGY-3 documented in this [id number] Evaluation + Plan note Extracted from: Title:Admission H & P Author:Ila MULTANI, Aldair Rinaldi Date:01/07/22 36-year-old male with past medical history of alcohol abuse presented with left arm/hand swelling. Left upper extremity swelling and hematoma Acute anemia in setting of thrombocytopenia and cirrhosis Hemoglobin 6.9. Hemoglobin 16.3 in 08/2020 INR 1.6. Platelets 63 Trauma surgery evaluated the patient. No need for immediate surgery. Patient waiting for bed at [facility] Patient received vitamin K, 1 unit FFP's. [...] tertiary center. Patient waiting for bed at [facility] Acute pancreatitis CT abdomen showed mild inflammation [...] made to ensure accuracy, however, inadvertently computerized cabin equipment supervisor mistakes may be present. Dr. Aldair Thorpe [...] on January 07, 2022 18:44:52 EDT . [facility] Future Appointments Appointment Date:03/16/2023 11:00:00 AM Scheduled Provider:Teddy Hitchcock MD Location[facility] Appointment Type:WC [facility] (FT) [facility] Future Appointments Appointment Date:03/30/2023 11:00:00 AM Scheduled Provider:Teddy Hitchcock MD Location:FT.[facility] Appointment Type:WC Follow Up Visit (FT) [facility] Future Appointments Appointment Date:04/16/2023 12:00:00 PM Scheduled Provider: Location:.ULTRASOUND Appointment Type:US Duplex Procedures (FT) Appointment Date:04/23/2023 10:15:00 AM Scheduled Provider:Teddy Hitchcock MD Location:FT.[facility] Appointment Type:WC Follow Up Visit (FT) Future Scheduled Tests Radiology* US PVR Lower EXT [facility] Future Appointments Appointment Date:04/23/2023 10:15:00 AM Scheduled Provider:Teddy Hitchcock MD Location[facility] Appointment Type:WC Follow Up Visit (FT) [facility] + Plan note Future Appointments Appointment Date:04/30/2023 08:30:00 AM Scheduled Provider: Location:.[facility] Appointment Type:WC Assessment (FT) Appointment Date:05/07/2023 11:30:00 AM Scheduled Provider:Teddy Hitchcock MD Location[facility] Appointment Type:WC Follow Up Visit (FT) [facility] Future Appointments Appointment Date:05/07/2023 11:30:00 AM Scheduled Provider:Teddy Hitchcock MD Location[facility] Appointment Type:WC [facility] Future Appointments Appointment Date:05/14/2023 07:00:00 AM Scheduled Provider:Teddy Hitchcock MD Location[facility] Appointment Type:WC [facility] ([facility] Future Appointments Appointment Date:05/21/2023 11:15:00 AM Scheduled Provider:Teddy Hitchcock MD Location[facility] Appointment Type:WC Follow Up Visit (FT) [facility] Future Appointments Appointment Date:06/04/2023 10:45:00 AM Scheduled Provider:Teddy Hitchcock MD Location[facility] Appointment Type:WC Follow Up Visit (FT) [facility] Future Appointments Appointment Date:06/11/2023 01:00:00 PM Scheduled Provider: Location[facility] Appointment Type:WC Assessment (FT) Appointment Date:06/18/2023 10:00:00 AM Scheduled Provider:Teddy Hitchcock MD Location[facility] Appointment Type:WC Follow Up Visit (FT) [facility] Future Appointments Appointment Date:06/25/2023 11:00:00 AM Scheduled Provider:Teddy Hitchcock MD Location[facility] Appointment Type:WC Follow Up Visit (FT) [facility] Future Appointments Appointment Date:07/06/2023 10:30:00 AM Scheduled Provider:Teddy Hitchcock MD Location[facility] Appointment Type:WC Follow Up Visit (FT) [facility] Future Appointments Appointment Date:07/16/2023 09:30:00 AM Scheduled Provider:Teddy Hitchcock MD Location[facility] Appointment Type:WC Follow Up Visit (FT) [facility] Future Appointments Appointment Date:07/23/2023 09:00:00 AM Scheduled Provider:Teddy Hitchcock MD Location[facility] Appointment Type:WC Follow Up Visit (FT) Appointment Date:07/24/2023 07:40:00 AM Scheduled Provider:Lisa Padilla Location:[facility] Appointment Type:FM New Patient - Adult [facility] Future Appointments Appointment Date:07/24/2023 07:40:00 AM Scheduled Provider:Lisa Padilla Location:[facility] Appointment Type:FM New Patient - Adult Appointment Date:08/06/2023 09:30:00 AM Scheduled Provider:Teddy Hitchcock [facility] Type:WC Follow Up Visit (FT) [facility] Future Appointments Appointment Date:08/06/2023 09:30:00 AM Scheduled Provider:Teddy Hitchcock MD [facility] Appoint[facility] Type:WC Follow Up Visit (FT) Appointment Date:08/21/2023 07:20:00 AM Scheduled Provider:Lisa Padilla Location:[facility] Appointment Type: Open Future Scheduled Tests [...] Acid 07/24/23 * Vitamin B12 Level 07/24/23 [facility] + Plan note Future Appointments Appointment Date:08/21/2023 07:20:00 AM Scheduled Provider:Lisa Padilla Location:[facility] Appointment Type: Open Appointment Date:09/01/2023 12:00:00 PM Scheduled Provider:Mario Evans MD [facility] Appointment Type:BAD New Patient Future Scheduled Tests Laboratory* HgbA1c [...] Acid 07/24/23 * Vitamin B12 Level 07/24/23 [facility] Future Appointments Appointment Date:09/01/2023 12:00:00 PM Scheduled Provider:Nathan MULTANI, Mario Xiong Location[facility] Type[facility] New Patient Appointment Date:10/28/2023 09:00:00 AM Scheduled Provider:Lisa Padilla Location:[facility] Appointment Type: Open Future Scheduled Tests [...] Acid 07/24/23 * Vitamin B12 Level 07/24/23 [facility] Evaluation + Plan note Future Appointments Appointment Date:09/03/2023 09:00:00 AM Scheduled Provider: [facility] App[facility] Type:US Abdominal/Pelvis () Appointment Date:10/28/2023 09:00:00 AM Scheduled Provider:Lisa Padilla Location:[facility] Appointment Type:FM Open Future Scheduled Tests Laboratory* HgbA1c 07/24/23 * Fnctf-2-Sdidrjtblel 09/01/23 * Ceruloplasmin 09/01/23 * Antimitochondrial Antibody, [...] B12 Level 07/24/23 Radiology* US Liver 09/03/23 [facility] Evaluation + Plan note Future Appointments Appointment Date:10/28/2023 09:00:00 AM Scheduled Provider:Lisa Padilla Location:[facility] Appointment Type: Open Future Scheduled Tests Laboratory* HgbA1c 07/24/23 * Evvfq-8-Gkjzwaomcmz 09/01/23 * Ceruloplasmin 09/01/23 * Antimitochondrial Antibody, [...] Acid 07/24/23 * Vitamin B12 Level 07/24/23 [facility] Future Appointments Appointment Date:09/30/2023 10:15:00 AM Scheduled Provider: Location:[facility] Appointment Type:Surgery FT Appointment Date:10/01/2023 11:20:00 AM Scheduled Provider:Lisa Padilla Location:[facility] Appointment Type:FM Open Appointment Date:10/28/2023 09:00:00 AM Scheduled Provider:Lisa Padilla Location:[facility] Appointment Type: Open Future Scheduled Tests Laboratory* HgbA1c 07/24/23 * Zmnhb-0-Fsnxklezxiq 09/01/23 * Ceruloplasmin 09/01/23 * Antimitochondrial Antibody, [...] Acid 07/24/23 * Vitamin B12 Level 07/24/23 [facility] Evaluation note* Diagnosis Hemolytic anemia (HCC)- Primary Acquired [...] Primary Autoimmune hemolytic anemias On Cellcept therapy Prophylactic antibiotic Encounter for long-term (current) use of antibiotics documented [facility] - Reported* Type Description Date Medical History anxiety Medical History LIVER ISSUES Surgical History fx jaw Hospitalization History LIVER ISSUES 2021 [employer] Other Hospital course Narrative No data available for this section [facility] No data available for this section [facility] No data available for this section [facility] (narrative)* Tests/Procedures (Routine) - Authorized Specialty Diagnoses / Procedures Referred By Contact Referred To Contact Cardiovascular Testing Diagnoses Bilateral swelling of feet and ankles Tanvri Black MD [address] [id number] [employer] CARD NON INVASIVE [address] [place] [address] Referral ID Status Reason Start Date Expiration Date V isits Requested Visits Authorized [id number] Authorized 03/13/2022 03/13/2023 1 1 Scheduling Instructions [...] call the [facility] at [phone] (BEAT) if you are unable to keep [...] SpO2 100 %. Room/bed info not found @PROBHOSP@ [facility] for visit Narrative* Auth/Cert Specialty Diagnoses / Procedures Referred By Contac t Referred To Contact Case Management Diagnoses Acute Liver Failure Procedures [facility] SYSTEM[facility]elligent SystemsN[facility] [address] [place] [id number] Phone: [phone] [facility] [address] [place] [address] Phone: [phone] Referral ID Status Reason Start Date Expiration Date Visits Re quested Visits Authorized [id number] 3 3 [facility] for visit Narrative* Tests/Procedures (Routine) - Closed Specialty Diagnoses / Procedures Referred By Contact Referred To Contact Cardiovascular Testing Diagnoses Bilateral swelling of feet and ankles Tanvir Black MD [address] [place] [address] [place] [address] S CARD NON INVASIVE [address] [place] [address] Referral ID Status Reason Start Date Expiration Date Visits Re quested Visits Authorized [id number] Closed 03/13/2022 03/13/2023 1 1 [facility] Reason for Referral Specialty Diagnoses / Procedures Referred By Contac t Referred To Contact Radiology Diagnoses Rib pain Procedures XR RIBS LT UNILAT W/PA CHEST Theo Burks MD [address] [place] [address] [place] [address] S DIAGNOSTIC RADIOLOGY [address] [place] [address] [place] [address] Referral ID Status Reason Start Date Expiration Date V isits Requested Visits Authorized [id number] Authorized 12/15/2022 12/15/2023 1 1 Specialty Diagnoses / Procedures Referred By Contac t Referred To Contact Diagnoses Rib pain Theo Burks MD [address] [place] [address] [place] [address] Referral ID Status Reason Start Date Expiration Date V isits Requested Visits Authorized [id number] Pending Review 3 3 Specialty Diagnoses / Procedures Referred By Contac t Referred To Contact Diagnoses Iron deficiency anemia, unspecified iron deficiency anemia type Alcoholic cirrhosis, unspecified whether ascites present (HCC) Alcoholic cirrhosis of liver without ascites (HCC) Tanvir Black MD [address] [place] [address] [place] [address] Referral ID Status Reason Start Date Expiration Date Visits Re quested Visits Authorized [id number] Closed 3 3 Specialty Diagnoses / Procedures Referred By Contac t Referred To Contact Radiology Diagnoses Alcoholic cirrhosis of liver without ascites (HCC) Procedures XA TRANSJUGULAR LIVER BIOPSY (CHRISTIANO) XA INTERVENTIONAL RADIOLOGY PROCEDURE SERVICE Marcello Ibanez MD [address] [place] [address] S ULTRASOUND [address] [place] [address] Referral ID Status Reason Start Date Expiration Date V isits Requested Visits Authorized [id number] Authorized 10/27/2022 10/27/2023 1 1 Specialty Diagnoses / Procedures Referred By Contac t Referred To Contact Diagnoses Urinary tract infection without hematuria, site unspecified Leg swelling Tanvir Black MD [address] [place] [address] [place] [address] [facility] [address] [place] [address] Referral ID Status Reason Start Date Expiration Date V isits Requested Visits Authorized [id number] Authorized 08/21/2022 02/17/2023 3 3 Scheduling Instructions Please call Internal Medicine at to schedule an appointment. Specialty Diagnoses / Procedures Referred By Contac t Referred To Contact Radiology Diagnoses Lower extremity edema Procedures US LEG RIGHT VENOUS + DOPPLER Tanvir Black MD [address] [place] [address] [place] [address] S ULTRASOUND [address] [place] [address] Referral ID Status Reason Start Date Expiration Date Visits Re quested Visits Authorized [id number] Closed 08/14/2022 08/14/2023 1 1 Specialty Diagnoses / Procedures Referred By Contac t Referred To Contact Radiology Diagnoses Iron deficiency anemia, unspecified iron deficiency anemia type Alcoholic cirrhosis, unspecified whether ascites present (HCC) Procedures US HEP PORT SPLEN VEIN + DOPPLER Saskia Madison, HEAD WAITER/WAITRESS-FIRE EXTINGUISHER TESTER [address] [place] [address] [place] [address] S ULTRASOUND [address] [place] [address] Referral ID Status Reason Start Date Expiration Date V isits Requested Visits Authorized [id number] Authorized 08/14/2022 08/14/2023 1 1 Specialty Diagnoses / Procedures Referred By Contac t Referred To Contact Radiology Diagnoses Iron deficiency anemia, unspecified iron deficiency anemia type Alcoholic cirrhosis, unspecified whether ascites present (HCC) Procedures US LIVER/GALL BLADDER/PANCREAS Saskia Madison, HEAD WAITER/WAITRESS-FIRE EXTINGUISHER TESTER [address] [place] [address] [place] [address] [facility] ULTRASOUND [address] [place] [address] Referral ID Status Reason Start Date Expiration Date V isits Requested Visits Authorized [id number] Authorized 08/14/2022 08/14/2023 1 1 Specialty Diagnoses / Procedures Referred By Contac t Referred To Contact Afua Umanzor MD [address] [place] [address] Referral ID Status Reason Start Date Expiration Date V isits Requested Visits Authorized [id number] Pending Review 3 3 Referral ID Status Reason Start Date Expiration Date V isits Requested Visits Authorized [id number] Pending Review 3 3 Specialty Diagnoses / Procedures Referred By Contac t Referred To Contact Gastroenterology Diagnoses Alcoholic cirrhosis of liver without ascites (HCC) Afua Umanzor MD [address] [place] [address] [address] [place] [address] Referral ID Status Reason Start Date Expiration Date V isits Requested Visits Authorized [id number] Authorized 01/17/2022 01/17/2023 3 3 Scheduling Instructions [...] antibody (HCC) Thrombocytopenia (HCC) Afua Umanzor MD [address] [place] [address] [facility] HEMATOLOGY [address] [place] [address] Referral ID Status Reason Start Date Expiration Date V isits Requested Visits Authorized [id number] Authorized 01/17/2022 01/17/2023 3 3 Scheduling Instructions Please call the [facility] at [phone] to schedule an appointment if one was not made for you today. Specialty Diagnoses / Procedures Referred By Taya hope Referred To Contact Diagnoses Tear of left biceps muscle, initial encounter Afua Umanzor MD [address] [place] [address] [facility] ORTHO HAND [address] [place] [address] Referral ID Status Reason Start Date Expiration Date V isits Requested Visits Authorized [id number] Authorized 01/17/2022 01/17/2023 3 3 Scheduling Instructions Please call the [facility] at [phone] to schedule an appointment if one was not made for you today. Question Answer Adult patient to be evaluated for: Elbow - Bicep Tear - Left [5] Comments No prior visits in PM&R No prior visits in Orthopedics Specialty Diagnoses / Procedures Referred By Contac t Referred To Contact Radiology Procedures US HEP PORT SPLEN VEIN + DOPPLER Ccp [address] [place] [address] [facility] ULTRASOUND [address] [place] [address] Referral ID Status Reason Start Date Expiration Date Visits Re quested Visits Authorized [id number] Closed 01/10/2022 01/10/2023 1 1 Specialty Diagnoses / Procedures Referred By Contac t Referred To Contact Radiology Procedures US SPLEEN US SPLEEN Ccp [address] [address] [facility] ULTRASOUND [address] [place] [id number] Referral ID Status Reason Start Date Expiration Date Visits Re quested Visits Authorized [id number] Closed 01/09/2022 01/09/2023 1 1 Specialty Diagnoses / Procedures Referred By Contac t Referred To Contact Radiology Procedures XR ABDOMEN 1 VIEW AP Ccp [address] [address] [facility] DIAGNOSTIC RADIOLOGY [address] [place] [address] [place] [address] Referral ID Status Reason Start Date Expiration Date Visits Re quested Visits Authorized [id number] Closed 01/09/2022 01/09/2023 1 1 Specialty Diagnoses / Procedures Referred By Contac t Referred To Contact Radiology Procedures XR ORBITS Ccp [address] [place] [address] [facility] DIAGNOSTIC RADIOLOGY [address] [place] [address] [place] [address] Referral ID Status Reason Start Date Expiration Date Visits Re quested Visits Authorized [id number] Closed 01/08/2022 01/08/2023 1 1 Specialty Diagnoses / Procedures Referred By Contac t Referred To Contact Radiology Procedures US ASCITES SURVEY 4 QUADRANTS Ccp [address] [address] [facility] ULTRASOUND [address] [place] [address] Referral ID Status Reason Start Date Expiration Date Visits Re quested Visits Authorized [id number] Closed 01/08/2022 01/08/2023 1 1 Specialty Diagnoses / Procedures Referred By Contac t Referred To Contact Radiology Procedures US LIVER/GALL BLADDER/PANCREAS Ccp [address] [address] [facility] ULTRASOUND [address] [place], [place] [address] Referral ID Status Reason Start Date Expiration Date Visits Re quested Visits Authorized [id number] Closed 01/08/2022 01/08/2023 1 1 Specialty Diagnoses / Procedures Referred By Contac t Referred To Contact Radiology Procedures XRAY CHEST IMAGE IMPORT(CHRISTIANO) Ivy Chua MD [address] [place] [address] [facility] DIAGNOSTIC RADIOLOGY [address] [place] [address] [place] [address] Referral ID Status Reason Start Date Expiration Date Visits Re quested Visits Authorized [id number] Closed 01/08/2022 01/08/2023 1 1 Specialty Diagnoses / Procedures Referred By Contac t Referred To Contact Radiology Procedures CT BODY IMAGE IMPORT(CHRISTIANO) DOWNLOAD POWERSHARE IMAGES TO [facility] Ivy Chua MD [address] [place] [address] [facility] DIAGNOSTIC RADIOLOGY [address] [place] [address] [place] [address] Referral ID Status Reason Start Date Expiration Date Visits Re quested Visits Authorized [id number] Closed 01/08/2022 01/08/2023 1 1 Specialty Diagnoses / Procedures Referred By Contac t Referred To Contact Radiology Procedures XR HUMERUS LEFT Ccp [address] [place] [address] [facility] DIAGNOSTIC RADIOLOGY [address] [place] [address] [place] [address] Referral ID Status Reason Start Date Expiration Date Visits Re quested Visits Authorized [id number] Closed 01/08/2022 01/08/2023 1 1 Specialty Diagnoses / Procedures Referred By Contac t Referred To Contact Radiology Procedures XR ELBOW LEFT MINIMUM 3 VIEWS Ccp [address] [place] [address] [facility] DIAGNOSTIC RADIOLOGY [address] [place] [address] [place] [address] Referral ID Status Reason Start Date Expiration Date Visits Re quested Visits Authorized [id number] Closed 01/08/2022 01/08/2023 1 1 Advance Directives [...] LPN) 0900 (Hold/Not Given - Provider: Ana Salas, IRENA - Reason: Medication unavailable)1118 (IV New Bag - Provider: Ana Salas RN) diclofenac (VOLTAREN) 1 % topical GEL 2 g, Topical, 4 TIMES DAILY, First dose on Thu01/15/22 at 1700, Until Discontinued 1700 (Hold/Not Given - Provider: Teddy Maher Rn, RN - Reason: Medication unavailable)1752 (Given - Provider: Teddy Maher Rn, RN - Comment: not on unit)2100 (Given - Provider: Farheen Dudley, RN) 0900 (Hold/Not Given - Provider: Chrystal [...] Salas RN)1649 (Given - Provider: Rosa Mensah, IRENA) folic acid 1 MG tablet 1 mg, Oral, DAILY, First dose on Thu01/16/22 at 0900, Until Discontinued 09 (Given - Provider: Chrystal Pritchett LPN) 1105 (Given - Provider: Ana Salas RN) insulin [...] 1105 (Given - Provider: Ana Salas RN) oxyCODONE-acetaminophen (PERCOCET) 5-325 mg per tablet (COMPLETED) 1 Tablet, Oral, ONCE, 1 dose, On Thu01/16/22 at 0030 0050 (Given - Provider: Jose David Tsai RN) potassium chloride 20 MEQ/15ML (10%) oral solution (COMPLETED) 40 mEq, Oral, ONCE, 1 dose, On Thu01/15/22 at 0600 0545 (Given - Provider: Obdulia Callahan, IRENA) prednisoLONE (ORAPRED) 15 MG/5ML oral solution 70 mg, Oral, DAILY, First dose on Thu01/11/22 at 0900, Until Discontinued 1004 (Hold/Not Given [...] 1105 (Given - Provider: Ana Salas, IRENA) PRN Medication Order 01/15/2022 01/16/2022 01/17/2022 acetaminophen (TYLENOL) 650 MG/20.3ML oral solution SF 500 mg, Oral, EVERY 6 HOURS PRN, Starting on Thu01/10/22 at 2022, Until Discontinued, Mild Pain (pain score 1,2,3), Moderate Pain (pain score 4,5,6) 0250 (Given - Provider: Obdulia Callahan, RN)0929 (Given - Provider: Teddy Maher Rn, RN)1632 (Given - Provider: Teddy Maher Rn, RN)2124 (Given - Provider: Farheen Dudley, RN) 0359 (Given - Provider: Jose David Tsai [...] Anxiety 1530 (Given - Provider: Ana Salas, IRENA) ondansetron (ZOFRAN) 4 MG/2ML injection 4 mg, [...] Oral, STAT, 1 dose, On Thu08/15/22 at 1459 1502 (Given - Provid er: Mercedes Zapata RN) Reason for Visit (unrecogniz ed section and content) Reason Onset Date Comments Prior Authorization 01/21/2022 Reason Onset Date Comments Specialty Pharmacy Referral 02/11/2022 [facility] referral- no PA needed Specialty Diagnoses / Procedures Referred By Contac t Referred To Contact Hematology Diagnoses 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) Thrombocytopenia (HCC) [place] [address] S HEMATOLOGY [place] [id number] Referral ID Status Reason Start Date Expiration Date V isits Requested Visits Authorized [id number] Authorized 01/17/2022 01/17/2023 3 3 Reason Comments Blood test Reason Comments Monitoring/follow-up Fatigue nausea and vomiting Reason Comments AIHA On [employer]cept Cirrhosis/other liver disease Reason Comments New patient, to establish relationship Specialty Diagnoses / Procedures Referred By Taya t Referred To Contact Gastroenterology Diagnoses Alcoholic cirrhosis of liver without ascites (HCC) Tanvir Black MD [address] [place] [address] [address] [place] [phone] S LIVER [address] [place] [address] Referral ID Status Reason Start Date Expiration Date V isits Requested Visits Authorized [id number] Authorized 05/06/2022 05/06/2023 3 3 Reason Comments [...] Care Team (unrecognized sect ion and content) Stick Roller Relationship Specialty Start Date End Date Theo Burks MD [address] [place] [address] [address] [place] [phone] PCP - General Family Medicine 08/25/22 Stick Roller Relationship Specialty Start Date End Date Theo Burks MD [address] [place] [address] [address] [place] [phone] PCP - General Family Medicine 08/25/22 Stick Roller Relationship Specialty Start Date End Date Theo Burks MD [address] [place] [address] [place] [address] PCP - General Family Medicine 08/25/22 Stick Roller Relationship Specialty Start Date End Date Theo Burks MD [address] [place] [address] [place] [address] PCP - General Family Medicine 08/25/22 Stick Roller Relationship Specialty Start Date End Date Theo Burks MD [address] [place] [address] [place] [address] PCP - General Family Medicine 08/25/22 Abbey Alvarez MD [address] [place] [address] [place] [address] Fellow Gastroenterology 09/13/22 Saskia Madison, HEAD WAITER/WAITRESS-FIRE EXTINGUISHER TESTER [address] [place] [address] [place] [address] PERIOPERATIVE EDUCATOR Gastroenterology 09/13/22 Stick Roller Relationship Specialty Start Date End Date Theo Burks MD [address] [place] [address] [place] [address] PCP - General Family Medicine 08/25/22 Abbey Alvarez MD [address] [place] [address] [place] [address] Fellow Gastroenterology 09/13/22 Saskia Madison, HEAD WAITER/WAITRESS-FIRE EXTINGUISHER TESTER [address] [place] [address] [place] [address] PERIOPERATIVE EDUCATOR Gastroenterology 09/13/22 Stick Roller Relationship Specialty Start Date End Date Theo Burks MD [address] [place] [address] [place] [address] PCP - General Family Medicine 08/25/22 Abbey Alvarez MD [address] [place] [address] [place] [address] Fellow Gastroenterology 09/13/22 Saskia Madison APRN-FIRE EXTINGUISHER TESTER [address] [place] [address] [place] [address] PERIOPERATIVE EDUCATOR Gastroenterology 09/13/22 Stick Roller Relationship Specialty Start Date End Date Theo Burks MD [address] [place] [address] [place] [address] PCP - General Family Medicine 08/25/22 Abbey Alvarez MD [address] [place] [address] [place] [address] Fellow Gastroenterology 09/13/22 Saskia Madison APRN-FIRE EXTINGUISHER TESTER [address] [place] [address] [place] [address] PERIOPERATIVE EDUCATOR Gastroenterology 09/13/22 Stick Roller Relationship Specialty Start Date End Date Theo Burks MD [address] [place] [address] [place] [address] PCP - General Family Medicine 08/25/22 Abbey Alvarez MD [address] [place] [address] [place] [address] Fellow Gastroenterology 09/13/22 Saskia Madison APRN-FIRE EXTINGUISHER TESTER [address] [place] [address] [place] [address] PERIOPERATIVE EDUCATOR Gastroenterology 09/13/22 Stick Roller Relationship Specialty Start Date End Date Theo Burks MD [address] [place] [address] [place] [address] PCP - General Family Medicine 08/25/22 Abbey Alvarez MD [address] [place] [address] [place] [address] Fellow Gastroenterology 09/13/22 Saskia Madison APRN-FIRE EXTINGUISHER TESTER [address] [place] [address] [place] [address] PERIOPERATIVE EDUCATOR Gastroenterology 09/13/22 Stick Roller Relationship Specialty Start Date End Date Theo Burks MD [address] [place] [address] [place] [address] PCP - General Family Medicine 08/25/22 Abbey Alvarez MD [address] [place] [address] [place] [address] Fellow Gastroenterology 09/13/22 Saskia Madison APRN-FIRE EXTINGUISHER TESTER [address] [place] [address] [place] [address] PERIOPERATIVE EDUCATOR Gastroenterology 09/13/22 Stick Roller Relationship Specialty Start Date End Date Theo Burks MD [address] [place] [address] [place] [address] PCP - General Family Medicine 08/25/22 Abbey Alvarez MD [address] [place] [address] [place] [address] Fellow Gastroenterology 09/13/22 Saskia Madison, HEAD WAITER/WAITRESS-FIRE EXTINGUISHER TESTER [address] [place] [address] [place] [address] PERIOPERATIVE EDUCATOR Gastroenterology 09/13/22 Stick Roller Relationship Specialty Start Date End Date Theo Burks MD [address] [place] [address] [place] [address] PCP - General Family Medicine 08/25/22 Abbey Alvarez MD [address] [place] [address] [place] [address] Fellow Gastroenterology 09/13/22 Saskia Madison HEAD WAITER/WAITRESS-FIRE EXTINGUISHER TESTER [address] [place] [address] [place] [address] PERIOPERATIVE EDUCATOR Gastroenterology 09/13/22 Stick Roller Relationship Specialty Start Date End Date Theo Burks MD [address] [place] [address] [place] [address] PCP - General Family Medicine 08/25/22 Abbey Alvarez MD [address] [place] [address] [place] [address] Fellow Gastroenterology 09/13/22 Saskia Madison, HEAD WAITER/WAITRESS-FIRE EXTINGUISHER TESTER [address] [place] [address] [place] [address] PERIOPERATIVE EDUCATOR Gastroenterology 09/13/22 Marcello Ibanez MD [address] [place] [address] Fellow Gastroenterology 11/08/22 Stick Roller Relationship Specialty Start Date End Date Theo Burks MD [address] [place] [address] [place] [address] PCP - General Family Medicine 08/25/22 Abbey Alvarez MD [address] [place] [address] [place] [address] Fellow Gastroenterology 09/13/22 Saskia Madison, HEAD WAITER/WAITRESS-FIRE EXTINGUISHER TESTER [address] [place] [address] [place] [address] PERIOPERATIVE EDUCATOR Gastroenterology 09/13/22 Marcello Ibanez MD [address] [place] [address] Fellow Gastroenterology 11/08/22 Stick Roller Relationship Specialty Start Date End Date Theo Burks MD [address] [place] [address] [place] [address] PCP - General Family Medicine 08/25/22 Abbey Alvarez MD [address] [place] [address] [place] [address] Fellow Gastroenterology 09/13/22 Saskia Madison, LIBAN-FIRE EXTINGUISHER TESTER [address] [place] [address] [place] [address] PERIOPERATIVE EDUCATOR Gastroenterology 09/13/22 Marcello Ibanez MD [address] [place] [address] Fellow Gastroenterology 11/08/22 Stick Roller Relationship Specialty Start Date End Date Theo Burks MD [address] [place] [address] [place] [address] PCP - General Family Medicine 08/25/22 Abbey Alvarez MD [address] [place] [address] [place] [address] Fellow Gastroenterology 09/13/22 Saskia Madison APRN-FIRE EXTINGUISHER TESTER [address] [place] [address] [place] [address] PERIOPERATIVE EDUCATOR Gastroenterology 09/13/22 Marcello Ibanez MD [address] [place] [address] Fellow Gastroenterology 11/08/22 Stick Roller Relationship Specialty Start Date End Date Theo Burks MD [address] [place] [address] [place] [address] PCP - General Family Medicine 08/25/22 Abbey Alvarez MD [address] [place] [address] [place] [address] Fellow Gastroenterology 09/13/22 Saskia Madison APRN-FIRE EXTINGUISHER TESTER [address] [place] [address] [place] [address] PERIOPERATIVE EDUCATOR Gastroenterology 09/13/22 Marcello Ibanez MD [address] [place] [address] Fellow Gastroenterology 11/08/22 Stick Roller Relationship Specialty Start Date End Date Theo Burks MD [address] [place] [address] [place] [address] PCP - General Family Medicine 08/25/22 Abbey Alvarez MD [address] [place] [address] [place] [address] Fellow Gastroenterology 09/13/22 Saskia Madison, HEAD WAITER/WAITRESS-FIRE EXTINGUISHER TESTER [address] [place] [address] [place] [address] PERIOPERATIVE EDUCATOR Gastroenterology 09/13/22 Marcello Ibanez MD [address] [place] [address] Fellow Gastroenterology 11/08/22 Stick Roller Relationship Specialty Start Date End Date Theo Burks MD [address] [place] [address] [place] [address] PCP - General Family Medicine 08/25/22 Abbey Alvarez MD [address] [place] [address] [place] [address] Fellow Gastroenterology 09/13/22 Saskia Madison, HEAD WAITER/WAITRESS-FIRE EXTINGUISHER TESTER [address] [place] [address] [place] [address] PERIOPERATIVE EDUCATOR Gastroenterology 09/13/22 aMrcello Ibanez MD [address] [place] [address] Fellow Gastroenterology 11/08/22 Stick Roller Relationship Specialty Start Date End Date Theo Burks MD [address] [place] [address] [place] [address] PCP - General Family Medicine 08/25/22 Abbey Alvarez MD [address] [place] [address] [place] [address] Fellow Gastroenterology 09/13/22 Saskia Madison APRN-FIRE EXTINGUISHER TESTER [address] [place] [address] [place] [address] PERIOPERATIVE EDUCATOR Gastroenterology 09/13/22 Marcello Ibanez MD [address] [place] [address] Fellow Gastroenterology 11/08/22 Stick Roller Relationship Specialty Start Date End Date Theo Burks MD [address] [place] [address] [place] [address] PCP - General Family Medicine 08/25/22 Abbey Alvarez MD [address] [place] [address] [place] [address] Fellow Gastroenterology 09/13/22 Saskia Madison APRN-FIRE EXTINGUISHER TESTER [address] [place] [address] [place] [address] PERIOPERATIVE EDUCATOR Gastroenterology 09/13/22 Marcello Ibanez MD [address] [place] [address] Fellow Gastroenterology 11/08/22 Stick Roller Relationship Specialty Start Date End Date Theo Burks MD [address] [place] [address] [place] [address] PCP - General Family Medicine 08/25/22 Abbey Alvarez MD [address] [place] [address] [place] [address] Fellow Gastroenterology 09/13/22 Saskia Madison APRN-FIRE EXTINGUISHER TESTER [address] [place] [address] [place] [address] PERIOPERATIVE EDUCATOR Gastroenterology 09/13/22 Marcello Ibanez MD [address] [place] [address] Fellow Gastroenterology 11/08/22 Stick Roller Relationship Specialty Start Date End Date Theo Burks MD [address] [place] [address] [place] [address] PCP - General Family Medicine 08/25/22 Abbey Alvarez MD [address] [place] [address] [place] [address] Fellow Gastroenterology 09/13/22 Saskia Madison APRN-FIRE EXTINGUISHER TESTER [address] [place] [address] [place] [address] PERIOPERATIVE EDUCATOR Gastroenterology 09/13/22 Marcello Ibanez MD [address] [place] [address] Fellow Gastroenterology 11/08/22 Stick Roller Relationship Specialty Start Date End Date Theo Burks MD [address] [place] [address] [place] [address] PCP - General Family Medicine 08/25/22 Abbey Alvarez MD [address] [place] [address] [place] [address] Fellow Gastroenterology 09/13/22 Saskia Madison APRN-FIRE EXTINGUISHER TESTER [address] [place] [address] [place] [address] PERIOPERATIVE EDUCATOR Gastroenterology 09/13/22 Marcello Ibanez MD [address] [place] [address] Fellow Gastroenterology 11/08/22 Stick Roller Relationship Specialty Start Date End Date Theo Burks MD [address] [place] [address] [place] [address] PCP - General Family Medicine 08/25/22 Abbey Alvarez MD [address] [place] [address] [place] [address] Fellow Gastroenterology 09/13/22 Saskia Madison APRN-FIRE EXTINGUISHER TESTER [address] [place] [address] [place] [address] PERIOPERATIVE EDUCATOR Gastroenterology 09/13/22 Marcello Ibanez MD [address] [place] [address] Fellow Gastroenterology 11/08/22 Stick Roller Relationship Specialty Start Date End Date Theo Burks MD [address] [place] [address] [place] [address] PCP - General Family Medicine 08/25/22 Abbey Alvarez MD [address] [place] [address] [place] [address] Fellow Gastroenterology 09/13/22 Saskia Madison APRN-FIRE EXTINGUISHER TESTER [address] [place] [address] [place] [address] PERIOPERATIVE EDUCATOR Gastroenterology 09/13/22 Marcello Ibanez MD [address] [place] [address] Fellow Gastroenterology 11/08/22 Stick Roller Relationship Specialty Start Date End Date Theo Burks MD [address] [place] [address] [place] [address] PCP - General Family Medicine 08/25/22 Abbey Alvarez MD [address] [place] [address] [place] [address] Fellow Gastroenterology 09/13/22 Saskia Madison APRN-FIRE EXTINGUISHER TESTER [address] [place] [address] [place] [address] PERIOPERATIVE EDUCATOR Gastroenterology 09/13/22 Marcello Ibanez MD [address] [place] [address] Fellow Gastroenterology 11/08/22 Stick Roller Relationship Specialty Start Date End Date Theo Burks MD [address] [place] [address] [place] [address] PCP - General Family Medicine 08/25/22 Abbey Alvarez MD [address] [place] [address] [place] [address] Fellow Gastroenterology 09/13/22 Saskia Madison APRN-FIRE EXTINGUISHER TESTER [address] [place] [address] [place] [address] PERIOPERATIVE EDUCATOR Gastroenterology 09/13/22 Marcello Ibanez MD [address] [place] [address] Fellow Gastroenterology 11/08/22 Stick Roller Relationship Specialty Start Date End Date Theo Burks MD [address] [place] [address] [place] [address] PCP - General Family Medicine 08/25/22 Abbey Alvarez MD [address] [place] [address] [place], [place] 8664909 Fellow Gastroenterology 09/13/22 Saskia Madison APRN-FIRE EXTINGUISHER TESTER [address] [place] [address] [place], [place] [id number] PERIOPERATIVE EDUCATOR Gastroenterology 09/13/22 Marcello Ibanez MD [address] [place] [address] Fellow Gastroenterology 11/08/22 Stick Roller Relationship Specialty Start Date End Date Theo Burks MD [address] [place] [address] [place] [address] PCP - General Family Medicine 08/25/22 Abbey Alvarez MD [address] [place] [address] [place] [address] Fellow Gastroenterology 09/13/22 Saskia Madison APRN-FIRE EXTINGUISHER TESTER [address] [place] [address] [place] [address] PERIOPERATIVE EDUCATOR Gastroenterology 09/13/22 Marcello Ibanez MD [address] [place] [address] Fellow Gastroenterology 11/08/22 (unrecognized sect ion and content) No Status Records FoundNo Status Records Found INFORMATION SOURCE (unrecogn ized section and content) DATE CREATED AUTHOR 10/05/2023 [employer] DATE CREATED AUTHOR XU KEITA 10/12/2023 [facility] FOR RECORDS PERTAINING TO PATIENTS WHO [...] BE BASED ON THE PRIMARY CLINICAL RECORDS. [facility]. provides no warranty or guarantee of the accuracy or completeness of information in this document.
== END 2023-10-12 10:03 | disposition home or self-care (01) ==
LOC: WC 10:02
PROVIDERS: Visit Provider Physician Assistant
DX: L97.912 Non-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 fat layer exposed (principal); T81.89XA Other complications of procedures, not elsewhere classified, initial encounter
CPT/HCPCS: G0463

== ENCOUNTER 2023-10-20 08:58 | Outpatient (OUT) | payer OTHER, SELFPAY ==
--- NOTE | 2023-10-20 09:01 | VEIN_ITS ---
The [address] [address] Patient Name: WILL ANDERSON MRN: [id number] date: 1985 Sex: M Assigned Patient Location: Current Patient Location: Accession/Order Number: [id number] Exam Date: 10/20/2023 09:04 Report Date: 10/20/2023 11:17 At the request of: JOHN ANDREA Procedure: VC INJ Foam Sclerosant WUS INTERNAL WHOLESALER PROCEDURE: VC INJ Foam Sclerosant WUS INTERNAL WHOLESALER COMPARISON: None. HISTORY: Pain due to varicose veins of bilateral legs I83.813 Pre-operative Diagnosis: CEAP class C6 venous insufficiency with pain, tenderness, edema and incompetent right great saphenous and varicose vein(s), chronic venous insufficiency right leg secondary to venous incompetence Post-operative Diagnosis: CEAP class C6 venous insufficiency with pain, tenderness, edema and incompetent right great saphenous and varicose vein(s), chronic venous insufficiency right leg secondary to venous incompetence Procedure Performed: 1. Ultrasound-guided microfoam chemical ablation with Varithenaregistered 2. Intraoperative ultrasound guidance Anesthesia: None Indications for Procedure: 38-year-old male who presents with a long history of lower extremity pain and swelling culminating and nonhealing venous stasis ulcerations. The patient was seen by the wound clinic. The patient failed conservative medical therapy including medical compression stockings, exercise and analgesics. Prior procedures include endovenous laser ablation and Microfoam chemical ablation. Multiple incompetent varicosities of the right leg. Duplex scan showed reflux and enlarged diameters up to 5 mm. The patient underwent informed consent including management options where the complications of infection, bleeding, pain, and skin injury were discussed. Particular attention was spent discussing thrombus extension and deep vein thrombosis as well as the possibility of pulmonary embolus and treatment with oral or injectable blood thinners. Procedure: The patient walked to the procedure room. All applicable staff donned appropriate apparel. A procedure timeout was performed to confirm correct patient, correct extremity, correct procedure, and correct room set-up including presence of all applicable supplies, devices, and drugs. A duplex ultrasound, performed by myself confirmed the location and incompetence of branch saphenous varicosities and their course was marked on the skin together with the dilated tributaries. The extent of treatment of the vein and the associated varicosities was determined through ultrasound mapping. The skin was prepped and then punctured with a butterfly needle and advanced under ultrasound guidance. The Varithenaregistered canister was activated and the canister was primed and purged as required in the instructions for use. Varithenaregistered was drawn into a sterile syringe. The following injection was made: 6 cc injected into the distal incompetent right great saphenous vein of left ankle. Microfoam material extending into several branch saphenous varicosities Varithenaregistered was slowly administered at 0.5-1.0 cc/second with close observation by ultrasound of its course in the vessels. Total volume utilized was: 6 cc. Following administration of Varithenaregistered the leg was elevated and the patient was asked to repeatedly dorsiflex the ankle to limit flow of Varithenaregistered into perforating veins. Once appropriate spasm had been confirmed in the treated veins, the vascular catheter was removed from the leg and light pressure was applied over the puncture site for hemostasis. The common femoral and deep superficial veins were then evaluated for flow and compressibility prior to dressing placement. The lower extremity was kept elevated at 45 degrees above the horizontal and cording material was applied over the saphenous segments and tributaries to allow for eccentric compression over the target vessels including the targeted saphenous vein(s). A multilayer dressing was applied consisting of foam pads, coban and thigh-high 20-30 mm Hg compression elastic support hose were placed on the patient. The leg was lowered only after compression had been applied and the patient was immediately ambulatory. The patient ambulated 10 minutes under supervision and was without apparent concerns at time of release. Post-care instructions include advising patient to keep post-treatment bandages in place and dry for 48 hours, avoid extended periods of inactivity, avoid heavy exercise for one week, wear compression stockings on the treated leg continuously for two weeks, to walk daily for 10 minutes over the next month. The patient was instructed to take an anti-inflammatory medicine as needed and to follow up for color duplex scan of the Saphenous veins, the treated branch saphenous varicosities, the adjacent deep veins, and additional treatment within 7 days. PERSONNEL: Marlo Foster RN Electronically authenticated by: JOHN ANDREA Date: 10/20/2023 11:17
--- OUTSIDE RECORDS SUMMARY | 2023-10-20 09:24 | XMS_ITS | CCD ---
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 Name Role Phone Link, Colby Nicholson Primary Care Physician Unavailable Primary Care Provider Unavailabl e Unavailable Primary Care Provider Unavailabl e Unavailable Primary Care Provider Unavailabl e Theo Burks MD Primary Care Provider Abbey Alvarez MD Unavailable Saskia Day Unavailable Theo Burks MD Primary Care Provider Abbey Alvarez MD Unavailable Gricelda SILVESTRE, Saskia Unavailable Shamar MULTANI, Marcello Unavailable Saskia Day Unavailable [phone] THEO BURKS Primary Care Physician Unavaila ble NONE, XXXX Primary Care Physician Unavailab Jarrod Nettles Unavailable Lisa Lopez Primary Care Physician [phone] PROVIDER, UNKNOWN Admitting Unavailable BLACK, TONJEH Referring [...] Translations: [amoxicillin] Drug Allergy Unknown (qualifier value) [facility] (20 sources) Penicillin; Translations: [penicillin] Drug Allergy unknown [facility] (1 source) Substance with penicillin structure and antibacterial mechanism of action (substance) Drug allergy Unknown ticckle Other Medications Current Medications Medication Drug Class(es) Dates Sig (Normalized) Sig (Original) cephalexin 500 mg oral capsule (9 sources) Cephalosporin Antibacterial Start: 09-21-2023 End: 09-26-2023 take 1 capsule by mouth every eight hours Keflex 500 mg Cap 500 mg = 1 cap(s), Oral, q8hr, X 5 day(s), # 15 cap(s), Refills(s) 0, Pharmacy: [facility] #[id number], 170, cm, 09/21/23 14:28:00 EST, Height/Length Dosing, [...] day(s), # 28 cap(s), Refills(s) 0, Pharmacy: [facility] #[id number], 170, cm, 02/18/23 7:51:00 EDT, Height/Length Dosing, 77, kg, 02/18/23 7:51:00 EDT, Weight Dosing Start Date: 02/18/23 Stop Date: 02/25/23 Status: Ordered Start: 02-17-2022 take 2 capsules by m outh four times daily clindamycin 150 mg Cap 300 mg = 2 cap(s), Oral, QID, # 56 cap(s), Refills(s) 0, Pharmacy: [facility], 170.2, cm, 02/17/22 12:34:00 [...] BID, # 60 cap(s), Refills(s) 0, Pharmacy: [facility] #[id number], 170, cm, 07/24/23 7:59:00 EST, Height/Length Dosing, [...] patches if insurance coverage issue, [facility] #[id number], 170, cm, 08/26/23 9:52:00 EST, Height/Length Dosing, 68.5, kg, 08/26/23 9:52:00 EST, Weight Dosing Start Date: 08/26/23 Status: Ordered Start: 08-26-2023 apply 28.5 g topical ly twice daily lidocaine 3% topical gel See Instructions, 28.5 gm, Refill(s) 0, Topical BID apply a thin film to the affected areas may substitute for 2 % if this is not available, [facility] #[id number], 170, cm, 08/26/23 9:52:00 EST, Height/Length Dosing, [...] Refill(s) 0 Start Date: 07/24/23 Status: Ordered [facility] Prescription (20 sources) Start: 07-24-2023 Misc DME Presc ription See Instructions, LiquidIV hydration Start Date: 07/24/23 Status: Ordered Start: 07-24-2023 Misc DME Presc ription See Instructions, Collagen Matrix with ORC and Silver dressing Start Date: 07/24/23 Status: Ordered Start: 07-24-2023 [facility] Presc ription See Instructions, [place] SAP Dressing 4 x 4 dressing Start Date: 07/24/23 Status: Ordered Start: 07-24-2023 [facility] Presc ription See Instructions, Muscle & joint balm CBD 880mg Start Date: 07/24/23 Status: Ordered [facility] Prescription (7 sources) Start: 07-24-2023 [facility] Prescription Bee Venom, Daily Start Date: 07/24/23 [...] # 15 cap(s), Refills(s) 0, Pharmacy: [facility] #[id number], 170, cm, 02/18/23 7:51:00 EDT, Height/Length Dosing, [...] day(s), 28 tab(s), Refill(s) 0, [facility] #[id number], 170, cm, 03/22/23 20:14:00 EDT, Height/Length Dosing, [...] Nausea/Vomiting, # 60 tab(s), Refills(s) 12, [id number], 170, cm, 09/30/23 9:19:00 EST, Height/Length Dosing, 69, kg, 09/30/23 9:19:00 EST, Weight Dosing Start Date: 09/30/23 Status: Ordered Start: 03-22-2023 take 1 tablet by patricia th every eight hours as needed for nausea Zofran ODT 4 mg Tab-Dis 4 mg = 1 tab(s), Oral, q8hr, PRN Nausea/Vomiting, # 20 tab(s), Refills(s) 0, Pharmacy: [facility] #[id number], 170, cm, 03/22/23 20:14:00 EDT, Height/Length Dosing, [...] 05/06/2022 Discontinued (Therapy completed) 168 hr cloNIDine 0.79337 mg/hr transdermal system (1 source) Central alpha-2 [...] 01-09-2022 2 mg, Oral, EVERY 2 HOURS DC N, Starting on Thu01/08/22 at 1755, Until [...] tablet by mouth twice daily Potassium Chloride (Cre-Nrwi-Das M20) 20 mEq oral tablet, extended release 20 mEq = 1 tab(s), Oral, BID, # 30 tab(s), Refills(s) 3, Pharmacy: [facility] #[id number], 170, cm, 07/24/23 7:59:00 EST, Height/Length Dosing, [...] aftercare (4 sources) Antibiotic prophylaxis indicated; Translations: [assisted (current) use of antibiotics] Episodic Other aftercare (5 sources) Drug therapy status; Translations: [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] Episodic Other aftercare (1 source) Long-term current use of drug therapy; Translations: [Other long-term (current) drug therapy] Onset: 07-24-2023 Episodic Other [...] 10-27-2022 Episodic Other aftercare (1 source) Other long-term (current) drug therapy; Translations: [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 ED Note-Physicianon 10-12-19 ED Note-Physician [id number]#[address] [facility] Ambulatory Visit Summaryon 0 10-08-2023 Ambulatory Visit [...] 5 mg Cap) potassium chloride (Potassium Chloride (Yto-Glwd-Zrb M20) 20 mEq oral tablet, extended release) [...] Follow-Up Appointments Thursday 9:00 AM EST With: Lisa Padilla Where: [facility] Invalid Interpretation Code Portal venous hypertension [facility] Office/Clini c Noteon 10-08-2023 [facility] Office/Clinic Note Chief Complaint Elevated BPs HPI [...] he follows up with wound care in [place] Review of Systems PHQ Score Initial Depression [...] but nothing to compare it to, normal DC interval, intraventricular conduction delay noted Called and spoke to [facility] patient refuses to go to our emergency department here locally at [facility], he refuses to take an ambulance today despi (more content not included)... Normal [facility] Comment on above: Result Comment: Elec tronically Signed By: Lisa Padilla\.br\Date and Time Signed: 10/08/23 11:59 EST Physician Referralon 024 Physician Referral [id number] #1.00TIFF Normal [facility] IntraOperative Documentson 0 10-07-2023 IntraOperative Documents [id number]#1. 00TIFF Normal [facility] Main OR Intraoperative Recor don 10-02-2023 Main OR Intraoperative Record IntraOp Document Type FT Summary Primary Physician: Mario Evans MD Finalized Date/Time: 10/02/23 13:30:19 Pt. Name: WILL ANDERSON/Sex: 1985 Male Med Rec #: [id number] Physician: Mario Evans MD Financial #: [id number] Pt. Type: O Room/Bed: / Admit/Disch: 09/30/23 08:56:29 - 09/30/23 23:59:59 Institution: Case Times FT Entry 1 Patient Times In Room 09/30/23 10:06:00 Out Room 09/30/23 10:19:00 Procedure Times Start 09/30/23 10:10:00 Stop 09/30/23 10:17:00 Anesthesia Times Start 09/30/23 10:06:00 Stop 09/30/23 10:19:00 Last Modified By: Jessica OSBORN, Alondra Ball 09/30/23 10:19:17 General Comments: 10/02/23 chart opened per Yasmine Spangler RN for charge review. 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 Howell supervising case Last Modified By: Jessica OSBORN, Alondra Lopez RN, Alondra Lopez RN, Alondra Ball 09/30/23 10:19:19 F 09/30/23 10:19:19 F 09/30/23 10:19:19 Entry 4 Case Attendee Nathan MULTANI, Mario Xiong Role Performed Surgeon - Primary Time In 09/30/23 10:06:00 Time Out 09/30/23 10:19:00 Procedure EGD(.) Comments Last Modified By: Jessica OSBORN, Alondra Ball 09/30/23 10:19:19 Perioperative Protocols FT [...] Pichardo Dendinger RN, Tatyana Wayne Micala E, SarMario cuevas MD Time Out Complete 09/30/23 10:07:00 Outcomes Met? Yes Last Modified By: Alondra Lopez RN 09/30/23 10:09:14 Post-Care Text: The patient is [...] banding x3. Primary Procedure Yes Primary Surgeon Mario Evans MD Start 09/30/23 10:10:00 Stop 09/30/23 10:17:00 Anesthesia [...] and tissue Entry 1 Skin Integrity Intact, [place], Warm, and Skin Abnormality No Dry Outcomes [...] Left Leg (more content not included)... Normal [facility] Consenton 10-01-2023 Consent [id number] [facility] Discharge Instructionson Discharge Instructions [id number]#[address] 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 Interface Message Text Hematology AND Oncology [...] B27 positive) 2003 Followed with Rheum at [facility] Open fracture of other and unspecified [...] 120 min Stress: Stress Concern Present (02/27/2023) [employer] Occupational Health - Occupational Stress Questionnaire Feeling of Stress : Very much Social Connections: Socially Isolated (02/27/2023) Social Connection and Isolation Panel [NHANES] Frequency of Communication with Friends and Family: More than three times a week Frequency of Social Gatherings with Friends and Family: Patient refused Attends Nondenominational Services: Never Active Member of Clubs or [...] tab (more content not included)... Normal [facility] Consent for Treatmenton 09-08 Consent for Treatment [id number]#[address] [facility] Discharge Instructionson Discharge Instructions WILL ANDERSON [...] 4 mg Tab-Dis) potassium chloride (Potassium Chloride (Vws-Fjym-Yyv M20) 20 mEq oral tablet, extended release) [...] or heavy bleeding Pharmacy Information [facility] Discharge Instructions Discharge Instructions Previously Scheduled Follow-Up Appointments 2023 11:20 AM EST With: Lisa Padilla Where: [facility] Normal [address] [place] [address]- \.br\ New Follow Up Appointments after Discharge\.br\ Follow Up with Nathan MUTLANI, Mario Xiong, [facility], [facility] When: \.br\ Comments:\.br\ office will call for follow up\.br\ Where:\.br\ [address], [address] [facility] [address]\.br\ [place] [address].br\ [phone]\.br\ Medications\.br\ What How Much When Why Instructions Next Dose\.br\ New ondansetron (Zofran ODT 4 mg Tab-Dis) 1 Tablets By Mouth Every 8 hours as needed for Nausea/Vomiting Refills: 12 Pickup at [facility] #[id number]\.br\ Unchanged folic acid (folic acid 1 mg [...] Misc Prescription (Misc DME Prescription) See instructions [place] SAP Dressing 4 x 4 dressing \.br\ [...] a day\.br\ Unchanged potassium chloride (Potassium Chloride (Fsd-Mjws-Wfv M20) 20 mEq oral tablet, extended release) 1 Tablets By Mouth 2 times a day\.br\ Unchanged spironolactone (spironolactone 50 mg Tab) 1 Tablets By Mouth Every day\.br\ Unchanged sulfamethoxazole- trimethoprim (Bactrim) By Mouth taskes 3 times a week \.br\ Pharmacy Information\.br\ [facility] #[id number]: [address] [place], [place] [phone]\.br\ Test Results\.br\ No qualifying data available.\.br\ Allergies\.br\ [...] are safe for you.\.br\ ? \.br\ Take shre-lpq-ouymnjt and prescription medicines only as told by [...] provider.\.br\ Document Revised: 12/03/2022 Document Reviewed: 12/03/2022 [employer] Patient Education ? 2022 [employer].br\ Esophageal Varices\.br\ \.br\ Esophageal varices are [...] flexible tube with a small camera o [facility] Comment on above: Result Comment: Elec tronically Signed By: Jaylene Villasenor RN\.br\Date and Time Signed: 09/30/23 11:01 EST Discharge Instructions WILL ANDERSON :1985 Visit [...] 4 mg Tab-Dis) potassium chloride (Potassium Chloride (Qvl-Jkbw-Ris M20) 20 mEq oral tablet, extended release) [...] For Persistent or heavy bleeding [facility] Discharge Instructions Discharge Instructions Previously Scheduled Follow-Up Appointments 2023 11:20 AM EST With: Lisa Padilla Where: [facility] Normal [address] [place] [address]- \.br\ New Follow Up Appointments after Discharge\.br\ Follow Up with Nathan MULTANI, Mario Xiong, [facility], [facility] When: \.br\ Comments:\.br\ office will call for follow up\.br\ Where:\.br\ [address] [facility] 3\.br\ [place] [address].br\ [phone]\.br\ Medications\.br\ What How Much When Why Instructions Next Dose\.br\ New ondansetron (Zofran ODT 4 mg Tab-Dis) 1 Tablets By Mouth Every 8 hours as needed for Nausea/Vomiting Refills: 12 Pickup at [facility] #[id number]\.br\ Unchanged folic acid (folic acid 1 mg [...] Misc Prescription (Misc DME Prescription) See instructions [place] SAP Dressing 4 x 4 dressing \.br\ [...] a day\.br\ Unchanged potassium chloride (Potassium Chloride (Bln-Yivm-Bky M20) 20 mEq oral tablet, extended release) 1 Tablets By Mouth 2 times a day\.br\ Unchanged spironolactone (spironolactone 50 mg Tab) 1 Tablets By Mouth Every day\.br\ Unchanged sulfamethoxazole- trimethoprim (Bactrim) By Mouth taskes 3 times a week \.br\ Pharmacy Information\.br\ [facility] #[id number]: [address] [place], [place] [phone]\.br\ Test Results\.br\ No qualifying data available.\.br\ Allergies\.br\ [...] are safe for you.\.br\ ? \.br\ Take lxnq-nwy-bxkxdwq and prescription medicines only as told by [...] provider.\.br\ Document Revised: 12/03/2022 Document Reviewed: 12/03/2022 [employer] Patient Education ? 2022 [employer].\.br\ Esophageal Varices\.br\ \.br\ Esophageal varices are enlarged [...] flexible tube with a small camera o [facility] Comment on above: Result Comment: Elec [...] 4 mg Tab-Dis) potassium chloride (Potassium Chloride (Ihs-Kvlj-Eis M20) 20 mEq oral tablet, extended release) [...] Persistent or heavy bleeding Pharmacy Information [facility] Discharge Instructions Discharge Instructions Previously Scheduled Follow-Up Appointments 2023 11:20 AM EST With: John ALBERTS, Lisa Tripp Where: [facility] Normal [address] [place] [address]- \.br\ New Follow Up Appointments after Discharge\.br\ Follow Up with Nathan MULTANI, JOE Alcal[place], [facility] When: \.br\ Comments:\.br\ office will call for follow up\.br\ Where:\.br\ [address] [facility] [address]\.br\ [place] [address].br\ [phone]\.br\ Medications\.br\ What How Much When Why Instructions Next Dose\.br\ New ondansetron (Zofran ODT 4 mg Tab-Dis) 1 Tablets By Mouth Every 8 hours as needed for Nausea/Vomiting Refills: 12 Pickup at [facility] #[id number]\.br\ Unchanged folic acid (folic acid 1 mg [...] Misc Prescription (Misc DME Prescription) See instructions [place] SAP Dressing 4 x 4 dressing \.br\ [...] a day\.br\ Unchanged potassium chloride (Potassium Chloride (Inw-Cmup-Iqb M20) 20 mEq oral tablet, extended release) 1 Tablets By Mouth 2 times a day\.br\ Unchanged spironolactone (spironolactone 50 mg Tab) 1 Tablets By Mouth Every day\.br\ Unchanged sulfamethoxazole- trimethoprim (Bactrim) By Mouth taskes 3 times a week \.br\ Pharmacy Information\.br\ [facility] #[id number]: [address] [place], [place] [phone]\.br\ Test Results\.br\ No qualifying data available.\.br\ Allergies\.br\ [...] are safe for you.\.br\ ? \.br\ Take dmmj-ebq-orkihbw and prescription medicines only as told by [...] provider.\.br\ Document Revised: 12/03/2022 Document Reviewed: 12/03/2022 [employer] Patient Education ? 2022 [employer].br\ Esophageal Varices\.br\ \.br\ Esophageal varices are [...] flexible tube with a small camera o [facility] Comment on above: Result Comment: Elec [...] EGD in [address] [facility] Comment on above: Result Comment: Elec tronically Signed By: Nathan MULTANI, Mario Xiong\.br\Date and Time Signed: 09/30/23 10:18 EST Inpatient Patient Summaryon 09-30-2023 Inpatient Patient Summary [address] [facility] Clinical Discharge Instructions PERSON INFORMATION Name: WILL ANDERSON PHYSICIANS Admitting Physician: Mario Evans MD Attending Physician: Mario Evans MD PCP: Lisa Padilla Discharge Diagnosis: Alcoholic cirrhosis Comment: PATIENT EDUCATION INFORMATION Instructions: Upper Endoscopy, Adult, Care After; Esophageal Varices Medication Leaflets: Follow up: With: Address: When: Nathan MULTANI, Mario Xiong, [facility], [address], [address] [phone] Comments: office will call for follow up Type Location Start Finish State Open [facility] 10/01/2023 11:20 AM 10/01/2023 11:40 AM Confirmed Open [facility] 10/28/2023 9:00 AM 10/28/2023 9:20 AM Confirmed MEDICATION LIST New Medications [facility] #[id number], [address] [place], [place] [phone], [phone] ondansetron (Zofran ODT 4 mg Tab-Dis) 1 [...] Refills: 0. Misc Prescription (Misc DME Prescription) [place] SAP Dressing 4 x 4 dressing. Misc [...] times a day. potassium chloride (Potassium Chloride (Cwp-Yuka-Xzt M20) 20 mEq oral tablet, extended release) 1 Tablets By Mouth 2 times a day. Refills: 3. spironolactone (spironolactone 50 mg Tab) 1 Tablets By Mouth every day. sulfamethoxazole-trim ethoprim (Bactrim) By Mouth. taskes 3 times a week. Comment: Normal [facility] Main OR PACU I Recordon 09-08 Main OR PACU I Record PACU Phase I Document Type FT Summary Primary Physician: Mario Evans MD Finalized Date/Time: 09/30/23 11:42:43 Pt. Name: WILL ANDERSON/Sex: 1985 Male Med Rec #: [id number] Physician: Mario Evans MD Financial #: [id number] Pt. Type: O Room/Bed: / Admit/Disch: 09/30/23 [...] By: Jaylene Villasenor RN 09/30/23 11:[address] [facility] Main OR Preoperative Recordo n 09-30-2023 Main OR Preoperative Record Holding Area Document Type FT Summary Primary Physician: Mario Evans MD Finalized Date/Time: 09/30/23 09:19:16 Pt. Name: WILL ANDERSON Elder Garnica./Sex: 1985 Male Med Rec #: [id number] Physician: Mario Evans MD Financial #: [id number] Pt. Type: O Room/Bed: / Admit/Disch: 09/30/23 [...] By: Ivis Ware RN 09/30/23 09:[address] [facility] Monitor Recordon 09-30-2023 Monitor Record [id number]# 1.00TIFF Normal [facility] Monitor Record [id number]# 1.00TIFF Normal [facility] Outpatient Surgery Discharge Instructionon 09-30-2023 Outpatient Surgery Discharge Instruction [address] [address] Patient Discharge Instructions PERSON INFORMATION Name: RAMO WILL Friedman Date of : 1985 Current Date: 09/30/2023 10:59:40 PHYSICIANS Admitting Physician: Mario Evans MD Discharge Diagnosis: Alcoholic cirrhosis WILL ANDERSON has [...] With: Address: When: Nathan MULTANI, Mario Xiong, [facility], [address], [address] [phone] Comments: office will call for follow up Type Location Start Finish State Open [facility] 10/01/2023 11:20 AM 10/01/2023 11:40 AM Confirmed FM Open [facility] 10/28/2023 9:00 AM 10/28/2023 9:20 AM Confirmed [...] to serve you. Thank you for choosing [facility] HERE ARE THE MEDICATION CHANGES THAT OCCURRED DURING YOUR HOSPITAL STAY New Medications [facility] #[id number], [address] [place], [place] [phone], [phone] ondansetron (Zofran ODT 4 mg Tab-Dis) 1 [...] Refills: 0. Misc Prescription (Misc DME Prescription) [place] SAP Dressing 4 x 4 dressing. Misc [...] times a day. potassium chloride (Potassium Chloride (Eqz-Ofea-Mog M20) 20 mEq oral tablet, extended release) [...] your healt (more content not included)... Normal [facility] Progress Note-Physicianon Progress Note-Physician Patient: WILL ANDERSON Age: 38 years Sex: Male : 1985 Associated Diagnoses: None Author: Dante Anesthesijacky ()Petar Postoperative Information Postoperative disposition: Postoperative disposition: [...] 09/30/23 10:35:00 EST Prescriptions Prescribed Potassium Chloride (Tfn-Wvcs-Lal M20) 20 mEq oral tablet, extended release: 20 mEq = 1 tab(s), Oral, BID, # 30 tab(s), Refills(s) 3, Pharmacy: [facility] #[id number], 170, cm, 07/24/23 7:59:00 EST, Height/Length Dosing, 73.5, kg, 07/24/23 7:59:00 EST, Weight Dosing Zofran ODT 4 mg Tab-Dis: 4 mg = 1 tab(s), Oral, q8hr, PRN Nausea/Vomiting, # 60 tab(s), Refills(s) 12, Pharmacy: [facility] #[id number], 170, cm, 09/30/23 9:19:00 EST, Height/Length Dosing, 69, kg, 09/30/23 9:19:00 EST, Weight Dosing lidocaine 3% topical gel: See Instructions, 28.5 gm, Refill(s) 0, Topical BID apply a thin film to the affected areas may substitute for 2 % if this is not available, [facility] #[id number], 170, cm, 08/26/23 9:52:00 EST, Height/Length Dosing, 68.5, kg, 08/26/23 9:52:00 EST, Phan... lidocaine Top 5% film Patch: 1 patch(es), Topical, Daily, 30 patch(es), Refill(s) 0, apply 12 hours on and 12 hours off daily remove patches after 12 hours may substitute for 4 % patches if insurance coverage issue, [facility] #[id number], 170, cm, 08/26/23 9:52:00 EST, Height/Length... Documented Medications Documented Bactrim: Oral, Refill(s) 0, taskes 3 times a week [facility] Prescription: See Instructions, Collagen Matrix with ORC and Silver dressing Mis DME Prescription: See Instructions, [place] SAP Dressing 4 x 4 dressing Mis DME Prescription: See Instructions, LiquidIV hydration Mis DME Prescription: See Instructions, Muscle & joint [...] 5% film Patch 1 patch(es), Topical, Daily [facility] Prescription See Instructions Misc DME Prescription See Instructions Misc DME Prescription See Instructions [facility] Prescription See Instructions mycophenolate mofetil 500 mg oral tablet 500 mg = 1 tab(s), Oral, BID Potassium Chloride (Llz-Wyly-Zde M20) 20 mEq oral tablet, extended release 20 mEq = 1 tab(s), Oral, BID spironolactone 50 mg Tab 50 mg = 1 tab(s), Oral, Daily Tab-A-Scott oral tablet 1 tab(s), Oral, Daily Zofran ODT 4 mg Tab-Dis 4 mg = 1 tab(s), PRN, Oral, q8hr Problem list: All Problems Abscess of left leg excluding foot / SNOMED CT 885592718 / Confirmed Alcohol abuse / SNOMED CT 26553511 / Confirmed Alcohol use disorder in remission / SNOMED CT 82349581 / Confirmed Anemia / SNOMED CT 583306285 / Confirmed BMI 23.0-23.9, adult / SNOMED CT 0311285350 / Confirmed Cellulitis of leg, right / SNOMED CT 449573284080025 / Confirmed Elevated blood pressure reading / SNOMED CT 113874392 / Confirmed Elevated fasting glucose / SNOMED CT 806071961 / Confirmed Elevated INR / SNOMED CT 5252299671 / Confirmed Elevated liver enzymes / SNOMED CT 5983664533 / Confirmed Hypokalemia / SNOMED CT 43159340 / Confirmed Liver cirrhosis, alcoholic / SNOMED CT 4454428960 / Confirmed Low serum albumin / SNOMED CT 4451184925 / Confirmed Screening for lipid disorders / SNOMED CT 045262805 / Confirmed Smokeless tobacco use / SNOMED CT 3706670980 / Confirmed Thrombocytopenia / SNOMED CT 670844043 / Confirmed Venous ulcer of right leg / SNOMED CT 1889561417 / Confirmed Resolved: Denies / SNOMED CT 340408486 Resolved: Heavy alcohol use / SNOMED CT 431000035 Physical Examin (more content not included)... Normal [facility] Comment on above: Result Comment: Elec [...] kg, 1.82, m2 Prescriptions Prescribed Potassium Chloride (Qbw-Ffab-Upn M20) 20 mEq oral tablet, extended release: 20 mEq = 1 tab(s), Oral, BID, # 30 tab(s), Refills(s) 3, Pharmacy: [facility] #[id number], 170, cm, 07/24/23 7:59:00 EST, Height/Length Dosing, 73.5, kg, 07/24/23 7:59:00 EST, Weight Dosing Zofran ODT 4 mg Tab-Dis: 4 mg = 1 tab(s), Oral, q8hr, PRN Nausea/Vomiting, # 60 tab(s), Refills(s) 12, Pharmacy: [facility] #[id number], 170, cm, 09/30/23 9:19:00 EST, Height/Length Dosing, 69, kg, 09/30/23 9:19:00 EST, Weight Dosing lidocaine 3% topical gel: See Instructions, 28.5 gm, Refill(s) 0, Topical BID apply a thin film to the affected areas may substitute for 2 % if this is not available, [facility] #[id number], 170, cm, 08/26/23 9:52:00 EST, Height/Length Dosing, 68.5, kg, 08/26/23 9:52:00 EST, Phan... lidocaine Top 5% film Patch: 1 patch(es), Topical, Daily, 30 patch(es), Refill(s) 0, apply 12 hours on and 12 hours off daily remove patches after 12 hours may substitute for 4 % patches if insurance coverage issue, [facility] #[id number], 170, cm, 08/26/23 9:52:00 EST, Height/Length... Documented Medications Documented Bactrim: Oral, Refill(s) 0, taskes 3 times a week Misc DME Prescription: See Instructions, Collagen Matrix with ORC and Silver dressing Misc DME Prescription: See Instructions, [place] SAP Dressing 4 x 4 dressing Misc [...] = 1 tab(s), Oral, BID Potassium Chloride (Bvv-Otdv-Prp M20) 20 mEq oral tablet, extended release 20 mEq = 1 tab(s), Oral, BID spironolactone 50 mg Tab 50 mg = 1 tab(s), Oral, Daily Tab-A-Scott oral tablet 1 tab(s), Oral, Daily Zofran ODT 4 mg Tab-Dis 4 mg = 1 tab(s), PRN, Oral, q8hr Problem list: All Problems Abscess of left leg excluding foot / SNOMED CT 585380521 / Confirmed Alcohol abuse / SNOMED CT 76298312 / Confirmed Alcohol use disorder in remission / SNOMED CT 45695722 / Confirmed Anemia / SNOMED CT 128787937 / Confirmed BMI 23.0-23.9, adult / SNOMED CT 4424233304 / Confirmed Cellulitis of leg, right / SNOMED CT 670127863828342 / Confirmed Elevated blood pressure reading / SNOMED CT 040143426 / Confirmed Elevated fasting glucose / SNOMED CT 385185333 / Confirmed Elevated INR / SNOMED CT 3260546510 / Confirmed Elevated liver enzymes / SNOMED CT 4956617673 / Confirmed Hypokalemia / SNOMED CT 67189459 / Confirmed Liver cirrhosis, alcoholic / SNOMED CT 0129271639 / Confirmed Low serum albumin / SNOMED CT 7137940429 / Confirmed Screening for lipid disorders / SNOMED CT 806131654 / Confirmed Smokeless tobacco use / SNOMED CT 2541839926 / Confirmed Thrombocytopenia / SNOMED CT 716562303 / Confirmed Venous ulcer of right leg / SNOMED CT 9731020835 / Confirmed Resolved: Denies / SNOMED CT 282853227 Resolved: Heavy alcohol use / SNOMED CT 641122038 Physical Examination Vital Signs 09/30/2023 10:16 EST Systolic Blood Pressure 150 mmHg mmHg Diastolic Blood Pressure 88 mmHg mmHg 09/30/2023 10:15 EST Heart Rate Monitored 84 bpm bpm Respiratory Rate 12 br/min br/min Respiratory Rate Monitored 20 br/min br/min SpO2 100 % % 09/30/2023 10:12 EST Systolic Blood Pressure 136 mmHg mmHg (more content not included)... Normal [facility] Comment on above: Result Comment: Elec tronically Signed By: Petar Steiner DO\.br\Date and Time Signed: 09/30/23 10:32 EST Progress [...] kg, 1.82, m2 Prescriptions Prescribed Potassium Chloride (Bpy-Mppz-Tdf M20) 20 mEq oral tablet, extended release: 20 mEq = 1 tab(s), Oral, BID, # 30 tab(s), Refills(s) 3, Pharmacy: [facility] #[id number], 170, cm, 07/24/23 7:59:00 EST, Height/Length Dosing, 73.5, kg, 07/24/23 7:59:00 EST, Weight Dosing Zofran ODT 4 mg Tab-Dis: 4 mg = 1 tab(s), Oral, q8hr, PRN Nausea/Vomiting, # 20 tab(s), Refills(s) 0, Pharmacy: [facility] #[id number], 170, cm, 03/22/23 20:14:00 EDT, Height/Length Dosing, 75.2, kg, 03/22/23 20:14:00 EDT, Weight Dosing lidocaine 3% topical gel: See Instructions, 28.5 gm, Refill(s) 0, Topical BID apply a thin film to the affected areas may substitute for 2 % if this is not available, [facility] #[id number], 170, cm, 08/26/23 9:52:00 EST, Height/Length Dosing, 68.5, kg, 08/26/23 9:52:00 EST, Phan... lidocaine Top 5% film Patch: 1 patch(es), Topical, Daily, 30 patch(es), Refill(s) 0, apply 12 hours on and 12 hours off daily remove patches after 12 hours may substitute for 4 % patches if insurance coverage issue, [facility] #[id number], 170, cm, 08/26/23 9:52:00 EST, Height/Length... Documented Medications Documented Milk Thistle: 1,000 mg, Oral, Daily, Refill(s) 0, Prophylaxis Misc DME Prescription: See Instructions, Collagen Matrix with ORC and Silver dressing Misc DME Prescription: See Instructions, [place] SAP Dressing 4 x 4 dressing Misc [...] Daily Milk Thistle 1,000 mg, Oral, Daily [facility] Pres[place] See Instructions [facility] Prescription See Instructions [facility] Prescription See Instructions [facility] Prescription See Instructions [facility] Prescription 0, Daily mycophenolate mofetil 500 mg oral tablet 500 mg = 1 tab(s), Oral, BID Potassium Chloride (Vbg-Bgne-Epo M20) 20 mEq oral tablet, extended release [...] left leg excluding foot / SNOMED CT 322711906 / Confirmed Alcohol abuse / SNOMED CT 90828485 / Confirmed Alcohol use disorder in remission / SNOMED CT 72948649 / Confirmed Anemia / SNOMED CT 890059876 / Confirmed BMI 23.0-23.9, adult / SNOMED CT 8011453166 / Confirmed Cellulitis of leg, right / SNOMED CT 094677308443221 / Confirmed Elevated blood pressure reading / SNOMED CT 383960609 / Confirmed Elevated fasting glucose / SNOMED CT 453162508 / Confirmed Elevated INR / SNOMED CT 8370756856 / Confirmed Elevated liver enzymes / SNOMED CT 1112569622 / Confirmed Hypokalemia / SNOMED CT 25150377 / Confirmed Liver cirrhosis, alcoholic / SNOMED CT 8352786353 / Confirmed Low serum albumin / SNOMED CT 6791720951 / Confirmed Screening for lipid disorders / SNOMED CT 150235969 / Confirmed Smokeless tobacco use / SNOMED CT 0733142547 / Confirmed Thrombocytopenia / SNOMED CT 932924867 (more content not included)... Normal [facility] Comment on above: Result Comment: Elec tronically Signed By: Dante Anesthesiology ()Petar\.br\Date and Time Signed: 09/30/23 09:23 EST Consent for Procedure/Surger yon 09-23-2023 Consent for Procedure/Surgery [id number] #1.00TIFF [facility] Ambulatory Visit Summaryon 0 09-21-2023 Ambulatory Visit [...] 4 mg Tab-Dis) potassium chloride (Potassium Chloride (Xrh-Thdd-Wjw M20) 20 mEq oral tablet, extended release) spironolactone (spironolactone 50 mg Tab) Procedures Performed I and D, Jaw. Discharge Vitals Temperature (Oral) 36.7 ?C Heart Rate (Peripheral) 73 Respiratory Rate 18 Blood Pressure 156/78 Height 170 cm Height 67 in Weight 70.1 kg Weight 154.22 lb BMI 24.26 What to do next Scheduled Follow-Up Appointments Thursday 10:15 AM EST With: Where: [facility] Thursday 9:00 AM EST With: Lisa Padilla Where: [facility] Normal [facility] Family Medicine Office/Clini c Noteon 09-21-2023 [...] with voice recognition software. Occasional wrong-word or ?odrtj-s-fqsx? substitutions may have occurred due to the [...] Patient was told to go to the [place] emergency department at that time which she [...] care provider and or return if needed. Brenda (more content not included)... Normal [facility] Comment on above: Result Comment: Elec tronically Signed By: Harshad PARKER, Keith Underwood\.br\Date and Time Signed: 09/21/23 21:05 EST Transfer Inon 09-09-2023 Transfer In [id number]#[address] [facility] US Liveron 09-05-2023 US Liver Exam [...] Barrera MD Transcribed by: JUNIOR Technologist: TANIKA [facility] Consent for Procedure/Surger yon 09-03-2023 Consent for Procedure/Surgery [id number]# 1.00TIFF [facility] Consent for Treatmenton 08-08 Consent for Treatment [id number]#1 .00TIFF [facility] Ambulatory Visit Summaryon 1 11-02-2022 Ambulatory Visit [...] 4 mg Tab-Dis) potassium chloride (Potassium Chloride (Inu-Fphq-Poe M20) 20 mEq oral tablet, extended release) spironolactone (spironolactone 50 mg Tab) sulfamethoxazole-trim ethoprim Procedures Performed I and D, Jaw. Discharge Vitals Heart Rate (Peripheral) 80 Respiratory Rate 18 Blood Pressure 140/80 Height 67 in Height 170 cm Weight 151.8 lb Weight 69 kg BMI 23.88 What to do next Scheduled Follow-Up Appointments 2022 9:00 AM EST With: Where: [facility] Thursday 9:00 AM EST With: Lisa Padilla Where: [facility] Normal [facility] Gastroenterology Office/Clin ic Noteon 09-01-2023 Gastroenterology [...] then He had a biopsy done at [facility] in January 2023, he had hepatic venous [...] due, last one was around January and [facility] report not available - Transplant Status: Obtain [...] B C Panel Alpha Fetoprotein Tumor Marker Lcsso-1-Prplbmhtaqv GEOVANNA w/Reflex if POS Antimitochondrial Antibody, Quantitative [...] tab(s), Oral (more content not included)... Normal [facility] Comment on above: Result Comment: Elec [...] to immunocompromised status. Pt was discharged from [facility] wound care. Pt has to repack his wound daily per wound care. Pt is still with wound care in [place]. Pt would like an Rx 2% lidocaine gel for when he is packing his wound and for managing the pain. Pain: 4-5 Feels Like: achy, sore Better/Worse: Lidocaine gel and rest Wound Care Appointment: Next wk Depression: 0 ROBY: N/A Last Labs done: 08/12/2023, [facility] Covid Vaccine: Yes Flu Vaccine: No History of Present Illness The patient presents for evaluation of multiple medical concerns. Will Anderson is a 37-year-old male who is here for 14-day TCM. He was recently discharged from [facility]. He went there with an abscess, incision, [...] following the wound care clinic out of [place] as well as seeing a vascular surgeon out of [place] due to chronic lower edema and varicosities. [...] adenopathy, (more content not included)... 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 How is this treated? This condition may [...] or perfumes. Medicines ? Take or use bobx-mut-bosnjkn and prescription medicines only as told by [...] ? Soreness. ? (more content not included)... [facility] Operative Reporton 3 Operative Report [id number]#1 .00TIFF [facility] Nursing Assessment - Woundon 08-14-2023 Nursing Assessment - Wound [id number]# 1.00TIFF [facility] Multi-Wound Charton 08-10-20 23 Multi-Wound Chart [id number] 1 [id number]# 2.00TIFF [facility] Nursing Assessment - Woundon 08-10-2023 Nursing Assessment - Wound [id number]# 1.00TIFF [facility] Nursing Note - Woundon 08-10 Nursing Note - Wound [id number] 12 [id number]# 1.00TIFF [facility] Physician Orderon 08-10-2023 Physician Order [id number] 2 [id number]# 1.00TIFF [facility] Physician Order [id number] 0 [id number]# 1.00TIFF [facility] Procedure - Woundon 08-10-20 Procedure - Wound [id number] 2 [id number]# 1.00TIFF [facility] Progress Note - Woundon Progress Note - Wound [id number]# 1.00TIFF [facility] Consent for Treatmenton 07-10 Consent for Treatment [id number]#1 .00TIFF [facility] Transfer Inon 08-06-2023 Transfer In [id number]#1 .00TIFF [facility] Transfer In [id number]#1 .00TIFF [facility] Transfer In [id number]#1. 00TIFF [facility] Consent for Treatmenton 07-09 Consent for Treatment [id number]#1 .00TIFF [facility] Ambulatory Visit Summaryon 09-26-2022 Ambulatory Visit Summary [...] 4 mg Tab-Dis) potassium chloride (Potassium Chloride (For-Jclk-Qjw M20) 20 mEq oral tablet, extended release) spironolactone (spironolactone 50 mg Tab) sulfamethoxazole-trim ethoprim [Image Removed: STOP]Stop taking these medications clindamycin (clindamycin 150 mg Cap) Procedures Performed Jaw. What to do next Scheduled Follow-Up Appointments Thursday 10:15 AM EST With: Kartik WALDEN, MELISSA, TANMAY, Leslie Portillo Where: [facility] 2022 9:30 AM EST With: Teddy Hitchcock MD Where: [facility] Thursday 7:20 AM EST With: Lisa Padilla Where: [facility] Invalid Interpretation Code Thrombocytopenia [facility] Physician Orderon 07-27-2023 Physician Order [id number]#[address] [facility] Ambulatory Visit Summaryon 1 09-23-2022 Ambulatory [...] 4 mg Tab-Dis) potassium chloride (Potassium Chloride (Squ-Sltk-Qnt M20) 20 mEq oral tablet, extended release) [...] Coretta MULTANI, Teddy Rodarte Where: [facility] Medications What How Much When Why Instructions New potassium chloride (Potassium Chloride (Wbh-Ocfa-Jqf M20) 20 mEq oral tablet, extended release) 1 Tablets By Mouth 2 times a day Refills: 3 Pickup at [facility] #[id number] Changed gabapentin (gabapentin 300 mg Cap) 1 Capsules By Mouth 2 times a day Leg pain Pickup at [facility] #[id number] Changed ondansetron (Zofran ODT 4 mg Tab-Dis) [...] Misc Prescription (Misc DME Prescription) See instructions [place] SAP Dressing 4 x 4 dressing Unchanged [...] Thursday, and Thursday Pharmacy Information [facility] #[id number]: [address] [place], [place] [id number] [phone] What How Much When Comments Stop Taking [...] you for choosing us for your care. [facility] Auth for Release of Medical Recordson 07-24-2023 Auth for Release of Medical Records [id number]#1. 00TIFF [facility] Auth for Release of Medical Records [id number]#1 .00TIFF [facility] Auth for Release of Medical Records [id number]#1. 00TIFF [facility] CHEMISTRYOrdered By: Huber Jha on 07-24-2023 Albumin DL <= 20 mg/L (U) [Mass/Vol] microgram/mL Normal 0.0 - 19.0 mcg/mL [facility] Remis ol Albumin Elph (U) [Mass fraction] mg/dL Invalid Interpretation Code [facility] Comment on above: Interpretive Data: T he reference range and other method performance specifications have not been established for this test; results should be integrated into the clinical context for interpretation. Creatinine (U) [Mass/Vol] 22.5 mg/dL Invalid Interpretation Code [facility] Comment on above: Interpretive Data: T he reference range and other method performance specifications have not been established for this test; results should be integrated into the clinical context for interpretation. U Prot/Creat Ratio [facility] Invalid Interpretation Code 0.00 - 200.00 [facility] Family Medicine Office/Clini c Noteon 07-24-2023 Family [...] be in one place except for his Granulating Machine Operator, DR Tanvir BLACK. Pt is currently with wound care at [facility]. Pt is also seeing a vascular specialist in [place]. Depression: Baseline PHQ9: 2 ROBY: Baseline: 5 [...] Of hep C -biopsy in January of [facility] edema/ swelling- lactulose/ lasix Former Chronic alcohol use, 3-5 times per week Daily chewing tobacco use Anemia- follows with hematology depression / anxiety- has been on meds- did not go well today PHQ9 2 ROBY: 5 right leg- continued drainage- wound care- follows with Dr Hitchcock- 2 rounds of antibiotics, swelling makes it works. started gabapentin 100 mg BID for leg pain. [place]- varicose veins- vascular- next week JOINT CBD- [...] yet PSA (45-70yo): not due yet Specialists: Deicer Finisher: ? Dentist: ? LIVER- [facility]- Dr Hitchcock Vascular- [place] Granulating Machine Operator, DR Tanvir nathan Physical Exam Vitals & [...] induced, arsh (more content not included)... Normal [facility] Comment on above: Result Comment: Elec tronically Signed By: Lisa Padilla\.chidi\Date and Time Signed: 07/24/23 09:18 EST Medication Consenton 023 Medication Consent [id number]#[address] [facility] Patient Educationon 07-24-20 23 Patient Education [...] provider before taking any new medicines, including zarz-ayt-xwdaisx medicines such as NSAIDs. ? Rest as needed. ? Eat a well-balanced diet. ? Limit your salt or water intake, if your health care provider asks you to do this. ? Do not drink alcohol. This is especially important if you routinely take acetaminophen. ? Keep all f (more content not included)... Normal [facility] Physician Referralon 023 Physician Referral [id number]#[address] [facility] U Microalbon 07-24-2023 Albumin DL <= 20 mg/L (U) [Mass/Vol] mg/dL Normal 0.0-19.0 [facility] Comment on above: Performed By: #### 1 [id number], [id number] ####[facility] [address] [place] [address] U Protein/Creat Ratioon 07-08 Creatinine (U) [Mass/Vol] 22.5 mg/dL Invalid Interpretation Code [facility] Comment on above: Result Comment: The reference range and other method performance specifications have not been established for this test; results should be integrated into the clinical context for interpretation. Performed By: #### 1 [id number], [id number] ####[facility] [address] [place] [address] U Prot/Creat Ratio [facility] Invalid Interpretation Code .00-200.00 [facility] Comment on above: Performed By: #### 1 [id number], [id number] ####[facility] [address] [place] [address] Albumin Elph (U) [Mass fraction] <6.[address] [facility] Comment on above: Result Comment: The reference range and other method performance specifications have not been established for this test; results should be integrated into the clinical context for interpretation. Performed By: #### 1 [id number], [id number] ####[address] [address] Consent for Treatmenton 07-08 Consent for Treatment [id number]#[address] [facility] Multi-Wound Charton 07-23-20 Multi-Wound Chart [id number] 1 [id number]# 1.00TIFF Normal [facility] Nursing Assessment - Woundon 07-23-2023 Nursing Assessment - Wound [id number]# 1.00TIFF Normal [facility] Nursing Note - Woundon 07-23 Nursing Note - Wound [id number] 11 [id number]# 1.00TIFF Normal [facility] Physician Orderon 07-23-2023 Physician Order [id number]# 1.00TIFF [facility] Procedure - Woundon 07-23-20 Procedure - Wound [id number] 1 [id number]# 1.00TIFF [facility] Progress Note - Woundon 07-08 Progress Note - Wound [id number]# 1.00TIFF [facility] Nursing Assessment - Woundon 07-20-2023 Nursing Assessment - Wound [id number]# 2.00TIFF [facility] Nursing Note - Woundon 07-20 Nursing Note - Wound [id number] 11 [id number]# 2.00TIFF [facility] Progress Note - Woundon 07-08 Progress Note - Wound [id number]# 3.00TIFF [facility] Physician Orderon 07-17-2023 Physician Order [id number]# 1.00TIFF [facility] Procedure - Woundon 07-17-20 Procedure - Wound [id number] 1 [id number]# 1.00TIFF [facility] Consent for Procedure/Surger yon 07-16-2023 Consent for Procedure/Surgery [id number]#1 .00TIFF [facility] Consent for Treatmenton Consent for Treatment [id number]#1 .00TIFF [facility] Multi-Wound Charton 07-16-20 Multi-Wound Chart [id number] 1 [id number]# 1.00TIFF [facility] Prescriptions/Work Noteson 1 2023 Prescriptions/Work Notes [id number]#1 .00TIFF [facility] Nursing Note - Woundon 07-03 Nursing Note - Wound [id number] 10 [id number]# 1.00TIFF [facility] Consent for Treatmenton 06-07 Consent for Treatment [id number]#1 .00TIFF [facility] Multi-Wound Charton 06-25-20 Multi-Wound Chart [id number] 0 [id number]# 1.00TIFF [facility] Nursing Assessment - Woundon 06-25-2023 Nursing Assessment - Wound [id number]# 1.00TIFF [facility] Nursing Note - Woundon 06-25 Nursing Note - Wound [id number] 10 [id number]# 1.00TIFF [facility] Physician Orderon 06-25-2023 Physician Order [id number]# 1.00TIFF [facility] Procedure - Woundon 06-25-20 Procedure - Wound [id number] 0 [id number]# 1.00TIFF [facility] Progress Note - Woundon 06-07 Progress Note - Wound [id number]# 1.00TIFF [facility] ED Note-Physicianon 06-20-20 ED Note-Physician Basic Information [...] and Complexity of Problems Differential Diagnosis: [] [facility] Data External documents reviewed: [] My [...] EDT [address] [place] [address]- Business (1) Additional Instructions: Follow-up with your primary care provider in 3 to 5 days. If symptoms worsen, do not improve, or new symptoms arise please report back to emergency department for further evaluation. Patient Education Insect Bite, Adult, Guni-pp-Rdfc Attestation Patient seen and evaluated by the physician assistant manager pt. Attending physician was present in the emergency department and supervised care. This visit was performed by both the physician and an APC. I performed all aspects of the MDM as documented. This report was transcribed using voice recognition software. Every effort was made to ensure accuracy, however, inadvertently computerized sales management intern mistakes may be present. Appropriate healthcare PPE was used in evaluating this patient. The patient was placed in a mask. The healthcare provider was wearing mask, gloves, and utilizing proper hand hygiene. All equipment was prop (more content not included)... Normal [facility] Comment on above: Result Comment: Elec tronically Signed By: Xander Anne PA-C\.br\Date and Time Signed: 06/19/23 13:22 EDT\.br\Electronically Co-Signed By: Teddy Luna DO\.br\Date and Time Co-Signed: 06/20/23 07:44 EDT Consent for Treatmenton 06-07 Consent for Treatment [id number]#1 .00TIFF [facility] Discharge Instructionson Discharge Instructions [id number]# 1.00TIFF [facility] ED Clinical Summaryon 2022 ED Clinical Summary [place] [id number] ED Clinical Summary Person Information Name: WILL ANDERSON/[facility] Age: 37 Years : 1985 Sex: Male Language: Kazakh PCP: NONE, XXXX Marital Status: Single Visit [...] 06/19/2023 13:28:07 06/19/2023 13:28:07 06/19/2023 13:28:07 ADDRESS: [address] [place] [id number] [facility] DOC NOTES: MEDICAL INFORMATION: Prescriptions Given: Medications to Continue with No Changes Other Medications clindamycin (clindamycin 150 mg Cap) 2 Capsules By Mouth 4 times a day. Refills: 0. ondansetron (Zofran ODT 4 mg Tab-Dis) 1 Tablets By Mouth every 8 hours as needed Nausea/Vomiting. Refills: 0. PATIENT EDUCATION INFORMATION: Instructions: Insect Bite, Adult, Ihsx-cg-Snas Follow up: With: Address: When: Harish Cunningham [address] [facility] [[email or web address]] [place] [address] Business (1) In 3 days 06/22/2023 Comments: Follow-up with your primary care provider in 3 to 5 days. If symptoms worsen, do not improve, or new symptoms arise please report back to emergency department for further evaluation. DIAGNOSIS: Bitten or stung by nonvenomous insect and other nonvenomous arthropods, initial encounter; Insect bite of right thigh Normal [facility] ED Patient Education Noteon 06-19-2023 ED [...] an anaphylactic reaction may include: ? Feeling flight coordinator the face (flushed). Your face may turn [...] day. General instructions ? Apply or take aguy-qkr-kwlpdgk and prescription medicines only as told by [...] ? Oil of lemon eucalyptus (OLE). ? [id number]. ? Consider spraying your clothing with a [...] anaphylactic reaction. Signs may include: ? Feeling flight coordinator the face. ? Itchy, red, swollen areas [...] your local (more content not included)... Normal [facility] ED Patient Summaryon 023 ED Patient Summary [place] [id number] Patient Discharge Instructions Person Information Name: WILL ANDERSON Age: 37 Years Arrival Date: 06/19/2023 12:15:49 Discharge Diagnosis: Bitten or stung by nonvenomous insect and other nonvenomous arthropods, initial encounter; Insect bite of right thigh Primary Care Physician: NONE, XXXX Provider Information Primary Provider: Teddy Luna DO Advanced Maintenance Machinist:None The exam and treatment you received in the Emergency Department were for an urgent problem and are not intended as complete care. It is important that you follow up with a doctor, nurse practitioner, or physician?s assistant manager pt for ongoing care. If your symptoms become [...] When: Colby Link [address], [address] [place] [address] 500px (1) In 3 days 06/22/2023 Comments: Follow-up [...] provider. Patient Education Materials: Insect Bite, Adult, Beai-kv-Ipsc A MESSAGE TO ALL PATIENTS REGARDING OPIOIDS PRESCRIPTION OPIOIDS: WHAT YOU NEED TO KNOW Prescription opioids can be used to help relieve nngrwsit-sa-tmpsbw pain and are often prescribed following a [...] Administration (www.fda.gov/Drugs/Re sourcesForYou (more content not included)... [facility] Consent for Procedure/Surger yon 06-18-2023 Consent for Procedure/Surgery [id number] #1.00TIFF [facility] Consent for Treatmenton 06-07 Consent for Treatment [id number]. [id number]#1 .00TIFF [facility] Multi-Wound Charton 06-18-20 Multi-Wound Chart [id number] 0 [id number]# 1.00TIFF [facility] Nursing Assessment - Woundon 06-18-2023 Nursing Assessment - Wound [id number]# 1.00TIFF [facility] Nursing Note - Woundon 06-18 Nursing Note - Wound [id number] 10 [id number]# 1.00TIFF [facility] Physician Orderon 06-18-2023 Physician Order [id number] 0 [id number]# 1.00TIFF [facility] Procedure - Woundon 06-18-20 Procedure - Wound [id number] 0 [id number]# 1.00TIFF [facility] Progress Note - Woundon 06-07 Progress Note - Wound [id number]# 1.00TIFF [facility] Physician Orderon 06-17-2023 Physician Order [id number] 0 [id number]# 2.00TIFF [facility] Consent for Treatmenton Consent for Treatment [id number]#1 .00TIFF [facility] Multi-Wound Charton 06-11-20 Multi-Wound Chart [id number] 0 [id number]# 1.00TIFF [facility] Nursing Assessment - Woundon 06-11-2023 Nursing Assessment - Wound [id number]# 1.00TIFF [facility] Nursing Note - Woundon 06-11 Nursing Note - Wound [id number] 10 [id number]# 2.00TIFF [facility] Consent for Procedure/Surger yon 06-04-2023 Consent for Procedure/Surgery [id number]# 1.00CD:127 [facility] Consent for Treatmenton 05-09 Consent for Treatment [id number]#1 .00CD:127 [facility] Multi-Wound Charton 06-04-20 Multi-Wound Chart [id number] 9 [id number]# 1.00CD:127 [facility] Nursing Assessment - Woundon 06-04-2023 Nursing Assessment - Wound [id number]# 1.00CD:127 [facility] Nursing Note - Woundon 06-04 Nursing Note - Wound [id number] 09 [id number]# 1.00CD:127 [facility] Physician Orderon 06-04-2023 Physician Order [id number] 9 [id number]# 1.00CD:127 [facility] Procedure - Woundon 06-04-20 Procedure - Wound [id number] 9 [id number]# 1.00CD:127 [facility] Progress Note - Woundon 05-09 Progress Note - Wound [id number]# 1.00CD:127 [facility] Insurance Correspondenceon 0 06-03-2023 Insurance Correspondence [id number]#1 .00CD:127 [facility] Consent for Treatmenton 05-08 Consent for Treatment [id number]#1 .00CD:127 [facility] Correspondence - Woundon Correspondence - Wound [id number]#1 .00CD:127 [facility] Insurance Correspondenceon 0 05-25-2023 Insurance Correspondence [id number]#1 .00CD:127 [facility] Insurance Correspondence [id number]# 1.00CD:127 [facility] Multi-Wound Charton 05-25-20 Multi-Wound Chart [id number] 9 [id number]# 1.00CD:127 [facility] Nursing Assessment - Woundon 05-25-2023 Nursing Assessment - Wound [id number]# 1.00CD:127 [facility] Nursing Note - Woundon 05-25 Nursing Note - Wound [id number] 09 [id number]# 1.00CD:127 [facility] Physician Orderon 05-25-2023 Physician Order [id number] 9 [id number]# 1.00CD:127 [facility] Procedure - Woundon 05-25-20 Procedure - Wound [id number] 9 [id number]# 1.00CD:127 [facility] Progress Note - Woundon 05-08 Progress Note - Wound [id number]# 1.00CD:127 [facility] Nursing Note - Woundon 05-21 Nursing Note - Wound 170.71.089.855.0855 09 [id number]# 1.00CD:127 [facility] Insurance Correspondenceon 0 05-18-2023 Insurance Correspondence [id number]#1 .00CD:127 [facility] Insurance Correspondenceon 0 05-15-2023 Insurance Correspondence [id number]#1. 00CD:127 [facility] Insurance Correspondence [id number]#1 .00CD:127 [facility] Consent for Procedure/Surger yon 05-14-2023 Consent for Procedure/Surgery [id number]# 1.00CD:127 [facility] Consent for Procedure/Surgery [id number]# 1.00CD:127 [facility] Consent for Treatmenton Consent for Treatment [id number]#1 .00CD:127 [facility] Correspondence - Woundon Correspondence - Wound [id number]# 1.00CD:127 [facility] Nursing Assessment - Woundon 05-14-2023 Nursing Assessment - Wound [id number] [id number]# 1.00CD:127 [facility] Nursing Note - Woundon 05-14 Nursing Note - Wound [id number] 09 [id number]# 1.00CD:127 [facility] Physician Orderon 05-14-2023 Physician Order [id number] 9 [id number]# 1.00CD:127 [facility] Procedure - Woundon 05-14-20 Procedure - Wound [id number] 9 [id number]# 1.00CD:127 [facility] Progress Note - Woundon Progress Note - Wound [id number]# 1.00CD:127 [facility] Insurance Correspondenceon 0 05-13-2023 Insurance Correspondence [id number]#1.0 0CD:127 [facility] Nursing Note - Woundon 05-13 Nursing Note - Wound [id number] 08 [id number]# 2.00CD:127 [facility] Insurance Correspondenceon 05-12-2023 Insurance Correspondence [id number]# 1.00CD:127 [facility] Physician Orderon 05-12-2023 Physician Order [id number] 9 [id number]# 1.00CD:127 [facility] Procedure - Woundon 05-12-20 Procedure - Wound [id number] 9 [id number]# 1.00CD:127 [facility] Consent for Treatmenton 09-0 Consent for Treatment [id number]# 1.00CD:127 [facility] Multi-Wound Charton 05-08-20 Multi-Wound Chart 170.71.121.117. 9 [id number]# 1.00CD:127 [facility] Nursing Assessment - Woundon 05-08-2023 Nursing Assessment - Wound 170.71.121.117. [id number]# 1.00CD:127 [facility] Nursing Note - Woundon 05-08 Nursing Note - Wound 170.71.540.904.1279 09 [id number]# 1.00CD:127 [facility] Consent for Treatmenton - Consent for Treatment [id number]#1 .00CD:127 [facility] Multi-Wound Charton 05-07-20 Multi-Wound Chart [id number] 8 [id number]# 1.00CD:127 [facility] Nursing Assessment - Woundon 05-07-2023 Nursing Assessment - Wound [id number] [id number]# 1.00CD:127 [facility] Physician Orderon 05-07-2023 Physician Order [id number] 8 [id number]# 1.00CD:127 [facility] Procedure - Woundon 05-07-20 Procedure - Wound [id number] 8 [id number]# 1.00CD:127 [facility] Progress Note - Woundon 04-09 Progress Note - Wound [id number] [id number]# 1.00CD:127 [facility] Consent for Treatmenton 04-08 Consent for Treatment [id number]# 1.00CD:127 [facility] Physician Orderon 05-01-2023 Physician Order [id number] 8 [id number]# 1.00CD:127 [facility] Procedure - Woundon 05-01-20 Procedure - Wound [id number] 8 [id number]# 1.00CD:127 [facility] Multi-Wound Charton 04-30-20 Multi-Wound Chart [id number] 8 [id number]# 1.00CD:127 [facility] Nursing Assessment - Woundon 04-30-2023 Nursing Assessment - Wound [id number]# 1.00CD:127 [facility] Nursing Note - Woundon 04-30 Nursing Note - Wound [id number] 08 [id number]# 1.00CD:127 [facility] Outside Recordson 04-28-2023 Outside Records [id number] 0 [id number]# 1.00CD:127 [facility] Consent for Treatmenton 04-07 Consent for Treatment [id number]#1 .00CD:127 [facility] Nursing Note - Woundon 04-23 Nursing Note - Wound [id number] 08 [id number]# 1.00CD:127 [facility] Physician Orderon 04-23-2023 Physician Order [id number] 8 [id number]# 1.00CD:[address] [facility] Procedure - Woundon 04-23-20 Procedure - Wound [id number] 8 [id number]# 1.00CD:[address] [facility] Progress Note - Woundon 04-07 Progress Note - Wound [id number]# 1.00CD:[address] [facility] Addendum Noteon 04-22-2023 [employer] Authentication Interface Message Text Encounter addended by: Tanvir Black MD on: 04/22/2023 9:05 AM Actions taken: Clinical Note Signed Normal [facility] BASIC METABOLIC PANELon 04-07 Anion gap [Moles/Vol] 12 mmol/L Normal 10-20 [facility] Comment on above: Performed By: #### P T #### [facility] [address] [place] [address], Calcium [Mass/Vol] 8.6 mg/dL Normal 8.4-10.4 [facility] Comment on above: Performed By: #### P T #### [facility] [address] [place] [address], Chloride [Moles/Vol] 104 mmol/L Normal 97-111 [facility] Comment on above: Performed By: #### P T #### [facility] [address] [place] [address], CO2 [Moles/Vol] 26 mmol/L Normal 21-30 [facility] Comment on above: Performed By: #### P T #### [facility] [address] [place] [address], Creatinine [Mass/Vol] 0.52 mg/dL Low 0.80-1.30 [facility] Comment on above: Performed By: #### P T #### [facility] [address] [place] [address], ESTIMATED GFR (CKD-EPI) 132 mL/min/1.73sqm Normal >=60 [facility] Comment on above: Result Comment: 2020 [...] Inclusion of Race in Diagnosing Kidney Disease. Citizen Of [place] Journal of Kidney Diseases 202;79(2):268-88.e1. 2. N Engl J Med 2020 Vol. 385 Issue 19 Pages 8434-1369 Performed By: #### P T #### [facility] [address] [place] [address], Glucose [Mass/Vol] 80 mg/dL Normal 68-110 [facility] Comment on above: Performed By: #### P T #### [facility] [address] [place] [address], Potassium [Moles/Vol] 4.0 mmol/L Normal 3.3-5.3 [facility] Comment on above: Performed By: #### P T #### [facility] [address] [place] [address], Sodium [Moles/Vol] 138 mmol/L Normal 135-148 [facility] Comment on above: Performed By: #### P T #### [facility] [address] [place] [address], Urea nitrogen [Mass/Vol] 7 mg/dL Low 8-22 [facility] Comment on above: Performed By: #### P T #### [facility] [address] [place] [address], Basic metabolic 2000 panelon 04-21-2023 Anion gap [Moles/Vol] 12 mmol/L 10 - 20 [facility] Calcium [Mass/Vol] 8.6 mg/dL 8.4 - 10.4 mg/dL [facility] Chloride [Moles/Vol] 104 mmol/L 97 - 111 mmol/L [facility] CO2 [Moles/Vol] 26 mmol/L 21 - 30 mmol/L [facility] Creatinine [Mass/Vol] 0.52 mg/dL Low 0.80 - 1.30 mg/dL [facility] GFR/1.73 sq M.predicted MDRD (S/P/Bld) [Vol rate/Area] 132 mL/min/{1.73_m2} - PINF [facility] Comment on above: 2020 CKD EPI [...] Inclusion of Race in Diagnosing Kidney Disease. Citizen [place] Journal of Kidney Diseases 2021;79(2):268-88.e1. 2. N Engl J Med 2020 Vol. 385 Issue 19 Pages 3770-8901 Glucose [Mass/Vol] 80 mg/dL 68 - 110 mg/dL [facility] Potassium [Moles/Vol] 4.0 mmol/L 3.3 - 5.3 mmol/L [facility] Sodium [Moles/Vol] 138 mmol/L 135 - 148 mmol/L [facility] Urea nitrogen [Mass/Vol] 7 mg/dL Low 8 - 22 mg/dL [facility] CBC WITH DIFFERENTIALon 04-07 Basophils (Bld) [#/Vol] 0.04 10*3/uL Normal 0.00-0.20 [facility] Comment on above: Performed By: #### C BEBETO AQUINO ARETIC #### [facility] [address] [place] [address], Basophils/100 WBC (Bld) 0.8 % Normal <=1.9 [facility] Comment on above: Performed By: ###BEBETO FLORES ARETIC #### [facility] [address] [place] [address], Eosinophils (Bld) [#/Vol] 0.12 10*3/uL Normal 0.00-0.70 [facility] Comment on above: Performed By: #### BEBETO MICHAEL ARETIC #### [facility] [address] [place] [address], Eosinophils/100 WBC (Bld) 2.5 % Normal 0.1-4.0 [facility] Comment on above: Performed By: #### BEBETO MICHAEL, ARETIC #### [facility] [address] [place] [address], Erythrocyte distribution width (RBC) [Ratio] 19.6 % High 11.5-14.5 [facility] Comment on above: Performed By: #### BEBETO MICHAEL, ARETIC #### [facility] [address] [place] [address], Hematocrit (Bld) [Volume fraction] 36.3 % Low 41.0-53.0 [facility] Comment on above: Performed By: #### BEBETO MICHAEL, ARETIC #### [facility] [address] [place] [address], Hemoglobin (Bld) [Mass/Vol] 12.2 g/dL Low 13.9-16.3 [facility] Comment on above: Performed By: #### BEBETO MICHAEL, ARETIC #### [facility] [address] [place] [address], Lymphocytes (Bld) [#/Vol] 1.13 10*3/uL Normal 1.00-4.80 [facility] Comment on above: Performed By: #### BEBETO MICHAEL, ARETIC #### [facility] [address] [place] [address], Lymphocytes/100 WBC (Bld) 23.3 % Low 24.0-44.0 [facility] Comment on above: Performed By: #### BEBETO MICHAEL, ARETIC #### [facility] [address] [place] [address], MCH (RBC) [Entitic mass] 34.3 pg High 26.0-34.0 [facility] Comment on above: Performed By: #### BEBETO MICHAEL, ARETIC #### [facility] [address] [place] [address], MCHC (RBC) [Mass/Vol] 33.7 g/dL Normal 32.0-35.9 [facility] Comment on above: Performed By: #### BEBETO MICHAEL, ARETIC #### [facility] [address], [place], MCV (RBC) [Entitic vol] 102 fL High 80-100 [facility] Comment on above: Performed By: #### BEBETO MICHAEL, ARETIC #### [facility] [address] [place] [address], MONOCYTE DISTRIBUTION WIDTH Normal [facility] Comment on above: Performed By: #### BEBETO MICHAEL, ARETIC #### [facility] [address] [place] [address], Monocytes (Bld) [#/Vol] 0.61 10*3/uL Normal 0.20-1.00 [facility] Comment on above: Performed By: #### BEBETO MICHAEL, ARETIC #### [facility] [address], [place], Monocytes/100 WBC (Bld) 12.5 % High 2.0-11.0 [facility] Comment on above: Performed By: #### BEBETO MICHAEL, ARETIC #### [facility] [address], [place], Neutrophils (Bld) [#/Vol] 2.95 10*3/uL Normal 1.50-8.00 [facility] Comment on above: Performed By: #### BEBETO MICHAEL, ARETIC #### [facility] [address], [place], Neutrophils/100 WBC (Bld) 60.8 % Normal 31.0-76.0 [facility] Comment on above: Performed By: #### BEBETO MICHAEL, ARETIC #### [facility] [address], [place], Platelet mean volume (Bld) [Entitic vol] 8.6 fL Normal 7.5-11.2 [facility] Comment on above: Performed By: #### BEBETO MICHAEL, ARETIC #### [facility] [address] [place] [address], Platelets (Bld) [#/Vol] 85 10*3/uL Low 150-400 [facility] Comment on above: Performed By: #### BEBETO MICHAEL, ARETIC #### [facility] [address], [place], RBC (Bld) [#/Vol] 3.57 10*6/uL Low 4.50-5.90 [facility] Comment on above: Performed By: #### BEBETO MICHAEL, ARETIC #### [facility] [address], [place], WBC (Bld) [#/Vol] 4.9 10*3/uL Normal 4.5-11.5 [facility] Comment on above: Performed By: #### BEBETO MICHAEL, ARETIC #### [facility] [address], [place], CBC WITH DIFFERENTIALOrdered By: Yany Carrera [...] RBC (Bld) [#/Vol] 3.57 10*6/uL Low [facility] WBC (Bld) [#/Vol] 4.9 10*3/uL 4.5 - 11.5 K/uL M [facility] HAPTOGLOBINon 04-21-2023 HAPTOGLOBIN < 30 Low 36-220 [facility] Comment on above: Performed By: #### P T #### [facility] [address] [place] [address], [id number] Haptoglobin [Mass/Vol] mg/dL Low 36 - 220 mg/dL [facility] Interpretation and review of laboratory results Abnormal [facility] HEPATIC FUNCTION PANELon Albumin [Mass/Vol] 3.2 g/dL Low 3.4-5.1 [facility] Comment on above: Performed By: #### P T #### [facility] [address] [place] [address] [place], ALK 284 IU/L High 40-200 [facility] Comment on above: Performed By: #### P T #### [facility] [address], [place], ALT [Catalytic activity/Vol] 38 U/L Normal 7-40 [facility] Comment on above: Performed By: #### P T #### [facility] [address], [place], AST [Catalytic activity/Vol] 70 U/L High 7-40 [facility] Comment on above: Performed By: #### P T #### [facility] [address] [place] [address], Bilirubin [Mass/Vol] 7.5 mg/dL High 0.1-1.5 [facility] Comment on above: Performed By: #### P T #### [facility] [address] [place] [address], Bilirubin.direct [Mass/Vol] 1.89 mg/dL High 0.10-0.30 [facility] Comment on above: Performed By: #### P T #### [facility] [address] [place] [address], Protein [Mass/Vol] 7.6 g/dL Normal 6.2-8.3 [facility] Comment on above: Performed By: #### P T #### [facility] [address], [place], Albumin [Mass/Vol] 3.2 g/dL Low 3.4 - 5.1 g/dL [facility] ALP [Catalytic activity/Vol] 284 U/L High [facility] ALT [Catalytic activity/Vol] 38 U/L [facility] AST [Catalytic activity/Vol] 70 U/L High [facility] Bilirubin [Mass/Vol] 7.5 mg/dL High 0.1 - 1.5 mg/dL [facility] Bilirubin.direct [Mass/Vol] 1.89 mg/dL High 0.10 - 0.30 mg/dL [facility] Protein [Mass/Vol] 7.6 g/dL 6.2 - 8.3 g/dL [facility] LDHon 04-21-2023 LD 257 IU/L High 50-220 [facility] Comment on above: Performed By: #### P T #### [facility] [address] [place] [address], LDH [Catalytic activity/Vol] 257 U/L [facility] MANUAL DIFF AND MORPHon 04-07 ANISOCYTOSIS Slight Normal [facility] Comment on above: Performed By: #### BEBETO MICHAEL, ARETIC #### [facility] [address] [place] [address], CELLS COUNTED TOTAL # IN BLOOD Normal [facility] Comment on above: Performed By: #### BEBETO MICHAEL, ARETIC #### [facility] [address] [place] [address], FRAGMENTED RBC Few Normal [facility] Comment on above: Performed By: #### BEBETO MICHAEL, ARETIC #### [facility] [address] [place] [address], OVALOCYTES Few Normal [facility] Comment on above: Performed By: #### BEBETO MICHAEL, ARETIC #### [facility] [address] [place] [address], TARGET CELLS Few Normal [facility] Comment on above: Performed By: #### BEBETO MICHAEL, ARETIC #### [facility] [address] [place] [address], TEARDROP CELLS Few Normal [facility] System Comment on above: Performed By: #### BEBETO MICHAEL, ARETIC #### [facility] [address] [place] [address], Anisocytosis Ql (Bld) Slight [facility] Cells Counted Total (Bld) [#] [facility] Dacrocytes LM Ql (Bld) Few [facility] Ovalocytes LM Ql (Bld) Few [facility] Schistocytes LM Ql (Bld) Few [facility] Target cells LM Ql (Bld) Few [facility] No Panel InformationOrdered By: Yany Carrera on 04-21-2023 [facility] No Panel Informationon 04-21 Interpretation and review of laboratory results Abnormal [facility] Progress Noteson 04-21-2023 Raw Juice Weigher Authentication Interface Message Text Patient was identified by name and date of . Monie Hernandez RN Patient at risk for falls:No Falls Risk protocol implemented: No Patient arrived to clinic for blood work. Labs obtained via venipuncture in the R AC with a #23 gauge butterfly needle. drsg applied and patient tolerated procedure well. Monie Hernandez RN Normal [facility] [employer] Authentication Interface Message Text Hematology AND Oncology [...] B27 positive) 2003 Followed with Rheum at [facility] Open fracture of other and unspecified [...] 120 min Stress: Stress Concern Present (02/27/2023) [employer] Occupational Health - Occupational Stress Questionnaire Feeling of Stress : Very much Social Connections: Socially Isolated (02/27/2023) Social Connection and Isolation Panel [NHANES] Frequency of Communication with Friends and Family: More than three times a week Frequency of Social Gatherings with Friends and Family: Patient refused Attends Nondenominational Services: Never Active Member of Clubs or [...] lactulos (more content not included)... Normal [facility] [employer] Weigher Authentication Interface Message Text Patient was identified [...] 100 %. Gustabo Isaak [place] Normal [facility] [employer] Juice Weigher Authentication Interface Message Text Patient was identified [...] 100 %. Gustabo Isaak [place] Normal [facility] RETICULOCYTE COUNTon 023 IMMATURE RETICULOCYTE FRACTION 0.46 Normal 0.30-0.50 [facility] Comment on above: Performed By: #### C BEBETO AQUINO ARETIC #### [facility] [address], [place], RETIC # 0.09 M/uL High 0.03-0.08 [facility] Comment on above: Performed By: #### C BEBETO AQUINO, ARETIC #### [facility] [address], [place], RETIC % 2.6 % High 0.5-1.5 [facility] Comment on above: Performed By: #### C BEBETO AQUINO, ARETIC #### [facility] [address], [place], Immature reticulocytes/Total reticulocytes (Bld) 0.46 % 0.30 - 0.50 [facility] Interpretation and review of laboratory results Abnormal [...] Varghese MD Transcribed by: 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 [facility] Consent for Treatmenton 04-07 Consent for Treatment [id number]#1 .00CD:127 [facility] Consent for Procedure/Surger yon 04-13-2023 Consent for Procedure/Surgery [id number]#1 .00CD:127 [facility] Consent for Treatmenton Consent for Treatment [id number]#1 .00CD:127 [facility] Insurance Correspondenceon 0 04-13-2023 Insurance Correspondence [id number]#1 .00CD:127 [facility] Multi-Wound Charton 04-13-20 Multi-Wound Chart [id number]# 1.00CD:127 [facility] Nursing Assessment - Woundon 04-13-2023 Nursing Assessment - Wound [id number]# 1.00CD:127 [facility] Nursing Note - Woundon 04-13 Nursing Note - Wound [id number] 08 [id number]# 1.00CD:127 [facility] Physician Orderon 04-13-2023 Physician Order [id number]#1 .00CD:127 [facility] Physician Order [id number]# 1.00CD:127 [facility] Procedure - Woundon 04-13-20 Procedure - Wound [id number]# 1.00CD:127 [facility] Progress Note - Woundon Progress Note - Wound [id number]# 1.00CD:127 [facility] Consent for Treatmenton 03-08 Consent for Treatment [id number]#1 .00CD:127 [facility] Multi-Wound Charton 03-30-20 Multi-Wound Chart [id number]# 1.00CD:127 [facility] Nursing Assessment - Woundon 03-30-2023 Nursing Assessment - Wound [id number]# 1.00CD:127 [facility] Nursing Note - Woundon 03-30 Nursing Note - Wound [id number]# 1.00CD:127 [facility] Physician Orderon 03-30-2023 Physician Order [id number]# 1.00CD:127 [facility] Procedure - Woundon 03-30-20 Procedure - Wound [id number] 7 [id number]# 1.00CD:127 [facility] Progress Note - Woundon 03-08 Progress Note - Wound [id number]# 1.00CD:127 [facility] Discharge Instructionson Discharge Instructions [id number]#1. 00CD:[address] [facility] Auto Diffon 03-22-2023 Basophils/100 WBC (Bld) 0.4 % Normal 0.0-2.0 [facility] Comment on above: Order Comment: Order Added by Discern Expert. Performed By: #### 2 600410, 2341028, 04874239, 8893233, 7702045, 0551389, 13203448 #### [facility] [address] [place] [address]77 Basophils/Leukocytes Auto (Bld) [Pure # fraction] 0.0 E9/L Normal 0.0-0.2 [facility] Comment on above: Order Comment: Order Added by Discern Expert. Performed By: #### 2 875524, 6942616, 40408355, 6038544, 3001062, 0424225, 15434937 #### [facility] [address] [place] [address] 44681 Eosinophils/100 WBC (Bld) 1.3 % Normal 0.0-8.0 [facility] Comment on above: Order Comment: Order Added by Discern Expert. Performed By: #### 2 949484, 4259905, 38845692, 2741528, 9854900, 6467295, 41770575 #### [facility] [address] [place] [address] 95113 Eosinophils/Leukocyt es Auto (Bld) [Pure # fraction] 0.1 E9/L Normal 0.0-0.5 [facility] Comment on above: Order Comment: Order Added by Discern Expert. Performed By: #### 2 900847, 5209926, 66447546, 8693283, 0811941, 9411451, 83481775 #### [facility] [address] [place] [address] 05722 Lymphocytes/100 WBC (Bld) 14.6 % Normal 14.0-50.0 [facility] Comment on above: Order Comment: Order Added by Discern Expert. Performed By: #### 2 216809, 4516198, 91530696, 6780270, 0543933, 8304429, 59828735 #### [facility] [address] [place] [address] 48704 Lymphocytes/Leukocyt es Auto (Bld) [Pure # fraction] 1.5 E9/L Normal 1.0-4.0 [facility] Comment on above: Order Comment: Order Added by Discern Expert. Performed By: #### 2 027448, 3603879, 79753091, 0986079, 7654999, 4713435, 05245851 #### [facility] [address] [place] [address] 81245 Monocytes/100 WBC (Bld) 7.9 % Normal 4.0-14.0 [facility] Comment on above: Order Comment: Order Added by Discern Expert. Performed By: #### 2 171524, 6849336, 23411265, 6517414, 5084191, 8280678, 17190248 #### [facility] [address] [place] [address] 33218 Monocytes/Leukocytes Auto (Bld) [Pure # fraction] 0.8 E9/L Normal 0.2-1.0 [facility] Comment on above: Order Comment: Order Added by Discern Expert. Performed By: #### 2 722589, 8739815, 64161902, 3191772, 0312528, 4094268, 17635037 #### [facility] [address] [place] [address] 41185 Neutrophils/100 WBC (Bld) 75.8 % High 36.0-75.0 [facility] Comment on above: Order Comment: Order Added by Discern Expert. Performed By: #### 2 105246, 4973817, 58361320, 5235949, 2282882, 5408089, 82335765 #### [facility] [address] [place] [address] 66353 Neutrophils/Leukocyt es Auto (Bld) [Pure # fraction] 7.7 E9/L High 2.0-7.5 [facility] Comment on above: Order Comment: Order Added by Discern Expert. Performed By: #### 2 882082, 6839937, 70761224, 9912117, 0534679, 9143579, 10465828 #### [facility] [address] [place] [address] 80352 CBC w/ Auto Diffon 3 Erythrocyte distribution width (RBC) [Ratio] 15.4 % High 10.9-14.2 [facility] Comment on above: Performed By: #### 2 169013, 4155434, 18900768, 8352874, 2078032, 3997064, 10466684 #### [facility] [address] [place] [address] Hematocrit (Bld) [Volume fraction] 30.1 % Low 37.7-49.0 [facility] Comment on above: Performed By: #### 2 734285, 5636662, 60548457, 8161032, 2927748, 9190939, 36611613 #### [facility] [address] [place] [address] 84391 Hemoglobin (Bld) [Mass/Vol] 10.3 g/dL Low 13.5-17.5 [facility] Comment on above: Performed By: #### 2 186250, 5702426, 44356011, 1170917, 9670168, 1004296, 30368543 #### [facility] [address] [place] [address] 90399 MCH (RBC) [Entitic mass] 34.1 pg High 27.0-34.0 [facility] Comment on above: Performed By: #### 2 913673, 9459491, 87609479, 4651084, 9996410, 9512731, 02378886 #### [facility] [address] [place] [address] 84716 MCHC (RBC) [Mass/Vol] 34.2 g/dL Normal 31.4-36.0 [facility] Comment on above: Performed By: #### 2 048101, 6381921, 40047446, 2378626, 7748271, 8958479, 32825625 #### [facility] [address] [place] [address] MCV (RBC) [Entitic vol] 99.4 fL Normal 80.0-100.0 [facility] Comment on above: Performed By: #### 2 523509, 0744559, 77402118, 7898436, 3027348, 5108002, 07140785 #### [facility] [address] [place] [address] 05288 Platelet mean volume (Bld) [Entitic vol] 8.6 fL Normal 6.4-10.8 [facility] Comment on above: Performed By: #### 2 966150, 2207590, 52538110, 5231339, 0782973, 1088082, 49110587 #### [facility] [address] [place], [place] [address] Platelets (Bld) [#/Vol] 87.0 E9/L Low 150.0-500.0 [facility] Comment on above: Performed By: #### 2 882741, 1417312, 57738149, 5626252, 5162607, 4690010, 71657585 #### [facility] [address] [place], [place] [address] RBC (Bld) [#/Vol] 3.0 E12/L Low 4.3-5.9 [facility] Comment on above: Performed By: #### 2 253118, 6867497, 60861469, 9453176, 3252567, 1293671, 32612286 #### [facility] [address] [place] [address] 54133 WBC corrected for nucl RBC Auto (Bld) [#/Vol] 10.1 E9/L Normal 4.0-11.0 [facility] Comment on above: Performed By: #### 2 424155, 8574810, 68669105, 2318958, 2537007, 7075341, 32378629 #### [facility] [address] [place] [address] 41115 CHEMISTRYOrdered By: SYSTEM SYSTEM on 03-22-2023 Albumin [...] rate/Area] 127 mL/min/1.73 m2 Normal >=59mL/min/1.73 m2 [facility] Chem S Globulin (S) [Mass/Vol] 4.7 g/dL [...] 133 mmol/L Low 135 - 145 mmol/L [facility] Troponin I.cardiac [Mass/Vol] 10.30 pg/mL Low 15.90 - 38.40 pg/mL [facility] Remisol Urea nitrogen [Mass/Vol] 7 mg/dL Normal 5 - 21 mg/dL [facility] Remisol Urea nitrogen/Creatinine [Mass ratio] 12 mg/mg Normal 10 - 20 [facility] Remisol CMPon 03-22-2023 Albumin [Mass/Vol] 2.5 g/dL Low 3.3-5.0 [facility] Comment on above: Performed By: #### 2 959719, 9758517, 15794631, 0246524, 5533323, 6681130, 14071049 ####[facility] [address] [place] [address] Albumin/Globulin (S) [Mass conc ratio] 0.5 Low 1.1-2.2 [facility] Comment on above: Performed By: #### 2 209588, 3808570, 96680580, 8445496, 8451435, 8155770, 29628458 ####[facility] [address] [place] [address] ALP [Catalytic activity/Vol] 158 Int._Unit/L High 21-98 [facility] Comment on above: Performed By: #### 2 567263, 9825236, 58612417, 4205618, 6920135, 6075294, 26141279 ####[facility] [address] [place] [address] ALT No additional P-5'-P [Catalytic activity/Vol] 50 Int._Unit/L High 6-46 [facility] Comment on above: Performed By: #### 2 575877, 6448290, 75717070, 5043246, 9745181, 2072262, 46294770 ####[facility] [address] [place] [address] AST [Catalytic activity/Vol] 80 Int._Unit/L High 5-43 [facility] Comment on above: Performed By: #### 2 117698, 0546631, 60061703, 4180444, 4780966, 4696693, 62851642 ####[facility] [address] [place] [address] Bilirubin [Mass/Vol] 8.1 mg/dL High 0.0-1.1 [facility] Comment on above: Performed By: #### 2 735100, 1152463, 47616831, 9459275, 5174438, 1735164, 80319323 ####[facility] [address] [place] [address] Creatinine [Mass/Vol] 0.6 mg/dL Normal 0.5-1.3 [facility] Comment on above: Performed By: #### 2 099508, 3393826, 58944781, 6495612, 4247283, 2426156, 44874275 ####[facility] [address] [place] [address] Globulin (S) [Mass/Vol] 4.7 g/dL High 1.4-4.0 [facility] Comment on above: Performed By: #### 2 010710, 2772101, 55454542, 8610756, 1823327, 1832715, 04064287 ####[facility] [address] [place] [address] Protein [Mass/Vol] 7.2 g/dL Normal 6.0-7.8 [facility] Comment on above: Performed By: #### 2 904018, 3885202, 34935985, 7993775, 4912187, 8270599, 04674800 ####[facility] [address] [place] [address] Urea nitrogen [Mass/Vol] 7 mg/dL Normal 5-21 [facility] Comment on above: Performed By: #### 2 703638, 0867971, 32626852, 1065877, 5361889, 6227390, 53271560 ####[facility] [address] [place] [address] Urea nitrogen/Creatinine [Mass ratio] 12 No Units Normal 10-20 [facility] Comment on above: Performed By: #### 2 187919, 3555937, 28362788, 8623473, 6184757, 6881257, 58829938 ####[facility] [address] [facility] [place] [address] Anion gap [Moles/Vol] 8 mmol/L Normal 6-16 [facility] Comment on above: Performed By: #### 2 561219, 9031495, 72981354, 1848531, 2838522, 1138805, 14776998 ####[facility] [address] [place] [address] Calcium [Mass/Vol] 8.2 mg/dL Low 8.9-11.1 [facility] Comment on above: Performed By: #### 2 309037, 2141952, 75033872, 0168808, 7275596, 7564617, 63018076 ####[facility] [address] [place] [address] Chloride [Moles/Vol] 103 mmol/L Normal 101-111 [facility] [place] Comment on above: Performed By: #### 2 870788, 6730333, 25949288, 2252235, 9496433, 3278572, 80648382 ####[facility] [address] [place] [address] CO2 [Moles/Vol] 25 mmol/L Normal 21-31 [facility] Comment on above: Performed By: #### 2 054148, 0918739, 25409702, 8774723, 3379346, 3126959, 57294506 ####[facility] [address] [place] [address] Glucose [Mass/Vol] 146 mg/dL Normal 55-199 [facility] Comment on above: Result Comment: If t his glucose result represents a fasting glucose, interpretation should refer to the following reference range: 55-99 mg/dL Performed By: #### 2 686928, 2964657, 34355103, 0801388, 8587089, 4560018, 05051100 ####[facility] [address] [place] [address] Potassium [Moles/Vol] 3.0 mmol/L Low 3.5-5.3 [facility] Comment on above: Performed By: #### 2 263158, 9392018, 11619945, 5097618, 3493741, 9368491, 90031547 ####[facility] [address] [place] [address] Sodium [Moles/Vol] 133 mmol/L Low 135-145 [facility] Comment on above: Performed By: #### 2 427123, 3675647, 87619001, 6170070, 2279456, 0934019, 71635654 ####[facility] [address] [place] [address] COAGULATIONOrdered By: Mayuri Russell on 03-22-2023 aPTT Coag (PPP) [Time] 42.0 s High 25.1 - 36.5 second(s) [facility] Auto Coag INR Coag (PPP) [Relative time] 2.6 {INR} Invalid Interpretation Code [facility] Auto Coag PT Coag (PPP) [Time] 30.4 s High 9.4 - 1 2.5 second(s) [facility] Auto Coag Consent for Treatmenton 03-07 Consent for Treatment [id number]#1 .00CD:[address] [facility] ED Clinical Summaryon 2022 ED Clinical Summary [address] [address] ED Clinical Summary Person Information Name: RAM[place]ILL[place] Age: 37 Years : 1985 Sex: Male Language: Kazakh PCP: THEO BURKS Marital Status: Single Visit [...] 03/22/2023 21:57:13 03/22/2023 21:57:13 03/22/2023 21:57:13 ADDRESS: [address] [place] [id number] [facility] DOC NOTES: MEDICAL INFORMATION: Prescriptions Given: New Medications [id number], [address] [place], [place] [id number], [phone] ondansetron (Zofran ODT 4 mg Tab-Dis) 1 [...] BURKS In 3 days DIAGNOSIS: Cellulitis Normal [facility] ED Note-Physicianon 03-22-20 ED Note-Physician Basic [...] and Complexity of Problems Differential Diagnosis: [] [facility] Data External documents reviewed: N/A My [...] Nausea/Vomiting, # 20 tab(s), Refills(s) 0, Pharmacy: [facility] #[id number], 170, cm, 03/22/23 20:14:00 EDT, Height/Length Dosing, [...] day(s), 28 tab(s), Refill(s) 0, [id number], 170, cm, 03/22/23 20:14:00 EDT, Height/Length Dosing, [...] Allergies amoxicillin (more content not included)... Normal [facility] Comment on above: Result Comment: Elec [...] these instructions at home: Medicines ? Take zrxw-cow-medvuda and prescription medicines only as told by [...] as antibiotic medicines or antihistamines. ? Take eabv-zvv-bxsgvbm and prescription medicines only as told by [...] provider. Document Revised: 06/05/2022 Document Reviewed: 06/05/2022 [employer] Patient Education ? [address] [employer] [address] [facility] ED Patient Summaryon 023 ED Patient Summary [place] [id number] Patient Discharge Instructions Person Information Name: WILL ANDERSON Age: 37 Years Arrival Date: 03/22/2023 19:35:03 Discharge Diagnosis: Cellulitis Primary Care Physician: THEO BURKS Provider Information Primary Provider: Martin Reese DO Advanced Maintenance Machinist:None The exam and treatment you received in the Emergency Department were for an urgent problem and are not intended as complete care. It is important that you follow up with a doctor, nurse practitioner, or physician?s assistant manager pt for ongoing care. If your symptoms become [...] opioids can be used to help relieve dzaavfpl-lr-lhudan pain and are often prescribed following a [...] struggling with addiction, tell your health healthcare interpreter and ask for guidance or call [facility]?S National Helpline at 6-705-822-QMUM. j Source: [place] Department of Health and Human Services/Center for Disease Control & Prevention [facility] (more content not included)... Normal [facility] HEMATOLOGYOrdered By: SYSTEM SYSTEM on 03-22-2023 [...] 7.7 E9/L High 2.0 - 7.5 E9/L [facility] HEMATOLOGYOrdered By: Greg Rincon on 03-22-2023 Erythrocyte distribution width (RBC) [Ratio] 15.4 % High 10.9 - 14.2 % [facility] Hematocrit (Bld) [Volume fraction] 30.1 % Low 37.7 - 49.0 % [facility] Hemoglobin (Bld) [Mass/Vol] 10.3 g/dL Low 13.5 - 17.5 gm/dL [facility] MCH (RBC) [Entitic mass] 34.1 pg High 27.0 - 34.0 pg [facility] MCHC (RBC) [Mass/Vol] 34.2 g/dL Normal 31.4 - 36.0 gm/dL [facility] MCV (RBC) [Entitic vol] 99.4 fL Normal 80.0 - 100.0 fL [facility] Platelet mean volume (Bld) [Entitic vol] 8.6 fL Normal 6.4 - 10.8 fL [facility] Platelets (Bld) [#/Vol] 87.0 E9/L Low 150.0 - 500.0 E9/L [facility] RBC (Bld) [#/Vol] 3.0 E12/L Low 4.3 - 5.9 E12/L [facility] WBC corrected for nucl RBC Auto (Bld) [#/Vol] 10.1 E9/L Normal 4.0 - 11.0 E9/L [facility] Lactic Acidon 03-22-2023 Lactate [Mass/Vol] 2.0 mmol/L Normal 0.5-2.2 [facility] Comment on above: Performed By: #### 2 134383, 4006584, 16491902, 1402475, 9128801, 3974842, 85954613 ####[facility] [address] [place] [address] PT & PTTon 03-22-2023 aPTT Coag (PPP) [Time] 42.0 second(s) High 25.1-36.5 [facility] Comment on above: Result Comment: Para [...] the same coagulation reagent and instrumentation as [facility]. Currently there are no coagulation studies available worldwide for children to 14 days, and no normal ranges. Heparin therapeutic range (represented by Anti-Factor Xa activity of 0.2 - 0.4 U/mL) corresponds to PTT of 56.6 - 109.0 sec. Performed By: #### 2 276760, 0153733, 14931558, 5820929, 1978633, 6910176, 04486970 #### [facility] [address] [place] [address] INR Coag (PPP) [Relative time] 2.6 {INR} Invalid Interpretation Code [facility] Comment on above: Result Comment: INR results are specifically intended to assess patients stabilized on long-term Anticoagulation therapy suggested INR?s ?Less Intensive Anticoagulation? 2.0 ? 3.0 Conventional Range 3.0 ? 4.5 Performed By: #### 2 606879, 5266572, 21510306, 4882425, 3942900, 0649431, 43649913 #### [facility] [address] [place] [address] PT Coag (PPP) [Time] 30.4 second(s) High 9.4-12.5 [facility] Comment on above: Result Comment: 15 [...] the same coagulation reagent and instrumentation as [facility]. Currently there are no coagulation studies available worldwide for children to 14 days, and no normal ranges. Performed By: #### 2 226469, 2635599, 01205953, 9228251, 2892731, 3634399, 15916663 #### [facility] [address] [place] [address] Troponinon 03-22-2023 Troponin I.cardiac [Mass/Vol] 10.30 pg/mL Low 15.90-38.40 [facility] Comment on above: Result Comment: The 95% CI (Confidence Interval) PPV (Positive Predictive Value) for myocardial infarction in females is 38 pg/mL, in males 51 pg/mL. The results should be used in conjunction with clinical conditions of myocardial infarction. (Access High Sensitivity Troponin I Instructions For Use, Sunny Harris, April 2018) Performed By: #### 2 413820, 4612447, 73280353, 7007060, 4770342, 1780943, 22536281 ####[facility] [address] [place] [address] eGFRon 03-22-2023 GFR/1.73 sq M.predicted among non-blacks MDRD (S/P/Bld) [Vol rate/Area] 127 mL/min/1.73 m2 Normal >=59 [facility] Comment on above: Order Comment: Order added by Discern Expert. Result Comment: Postbed Stitcher antonio kidney disease could be indicated at eGFR's of less than 60 mL/min/1.73m2. Kidney failure is indicated at less than 15 mL/min/1.73m2. Performed By: #### 2 184320, 4723093, 98170050, 3556091, 0989652, 9430976, 94288039 ####[facility] [address] [place] [address] Consent for Procedure/Surger yon 03-18-2023 Consent for Procedure/Surgery [id number]# 1.00CD:127 [facility] Consent for Treatmenton 03-07 Consent for Treatment [id number]#1 .00CD:127 [facility] Multi-Wound Charton 03-16-20 Multi-Wound Chart [id number]# 1.00CD:127 [facility] Nursing Assessment - Woundon 03-16-2023 Nursing Assessment - Wound [id number]# 1.00CD:127 [facility] Nursing Note - Woundon 03-16 Nursing Note - Wound [id number]# 1.00CD:127 [facility] Physician Orderon 03-16-2023 Physician Order [id number]# 1.00CD:127 [facility] Procedure - Woundon 03-16-20 Procedure - Wound [id number]# 1.00CD:127 [facility] Consent for Procedure/Surger yon 03-06-2023 Consent for Procedure/Surgery [id number]#1 .00CD:127 [facility] [facility] Consent to Photographon 02-07 Consent to Photograph [id number] .00CD:127 [facility] Correspondence - Woundon Correspondence - Wound [id number] .00CD:127 [facility] Correspondence - Wound [id number] .00CD:127 [facility] Nursing Assessment - Woundon 03-06-2023 Nursing Assessment - Wound [id number] .00CD:127 [facility] Telephone Encounteron 2022 [employer] Authentication Interface Message Text A prior authorization has been started for Lidocaine 5% patch PA status can be found under the prescription order in the Medication Tab. History or status of the PA can also be found in Chart Review under Referral tab. [facility] Consent for Treatmenton 02-06 Consent for Treatment [id number] .00CD:127 [facility] Multi-Wound Charton 03-05-20 Multi-Wound Chart [id number] .00CD:127 [facility] Nursing Assessment - Woundon 03-05-2023 Nursing Assessment - Wound [id number] .00CD:127 [facility] Nursing Note - Woundon 03-05 Nursing Note - Wound [id number] .00CD:127 [facility] Physician Orderon 03-05-2023 Physician Order [id number] .00CD:127 [facility] Procedure - Woundon 03-05-20 Procedure - Wound [id number] .00CD:127 [facility] Progress Note - Woundon 02-06 Progress Note - Wound [id number] .00CD:[address] [facility] Progress Noteson 02-27-2023 Raw Juice Weigher Authentication Interface Message Text This encounter was opened in error. Patient was a No-Show. Please disregard. Normal [facility] Telephone Encounteron 2022 Raw Juice Weigher Authentication Interface Message Text Pt had video visit scheduled. Link sent to him, but he never checked in. Normal [facility] Raw Juice Weigher Authentication Interface Message Text Called the patient Reminded him of his video visit this ThursdayMarch 03 with Lindsey Mahmood Pt concerned about his leg, he will send a picture to My Chart To his provider Concerned about his infection Notified Lindsey Mahmood Normal [facility] Raw Juice Weigher Authentication Interface Message Text What is the need: call back Situation: Pt states that the doctors office called him stating that they were running behind but he never got a phone call. Please advise Background: Please contact and advise Assessment: Pt contact info is Phone numbers Recommendation: n/a Thank you Normal [facility] Telephone Encounteron 2022 Raw Juice Weigher Authentication Interface Message Text NB ~~thank you ~~K Normal [facility] Raw Juice Weigher Authentication Interface Message Text Called the patient Leg is not getting worse Getting a little better Concerned he is on the wrong antibiotic Scheduled for a video visit with Dr Winter partner Lindsey Mahmood for tomorrow @ 1140am Normal [facility] Raw Juice Weigher Authentication Interface Message Text PLEASE SEE MY CHART ENCOUTNER CLOSING THIS ENCOUTNER Normal The [facility] [employer] Ju[employer] Weigher Authentication Interface Message Text We should probably call and advise urgent care if we can't get him in. Maybe try to schedule with someone next week? Normal [facility] Telephone Encounteron 2022 Raw Juice Weigher Authentication Interface Message Text Patient was identified by name and date of . EMILY COTO, RN Called patient to triage in [facility] to Jetpacshannon messagehe states he is taking water pills [...] see any appointments until late next week. [employer] message: Will Anderson to Theo Burks MD [...] walk. Help please. Theo Burks MD to Clinical [facility] 02/25/23 2:30 PM Please call patient and triage. If pain is severe and cannot walk recommend follow up in ED. If some improvement, please have him come in for same day or next day appointment. Normal [facility] Consent for Treatmenton 02-05 Consent for Treatment [id number] .00CD:[address] [facility] Discharge Instructionson Discharge Instructions [id number] .00CD:[address] [facility] ED Clinical Summaryon 2022 ED Clinical Summary [address] [address] ED Clinical Summary Person Information Name: WILL ANDERSON [place] Age: 37 Years : 1985 Sex: Male Language: Kazakh PCP: BURKS, THEO Marital Status: Single Visit Id: Visit Reason: [...] 02/18/2023 09:31:38 02/18/2023 09:31:38 02/18/2023 09:31:38 ADDRESS: [address] [place] [address] [address] [facility] [id number] PHYS DOC NOTES: MEDICAL INFORMATION: Prescriptions Given: New Medications [id number], [address] [place], [place] [id number], [phone] oxycodone (oxyCODONE 5 mg Cap) 1 Capsules By Mouth every 6 hours as needed for pain for 3 Days. Refills: 0. Medications to Continue Taking That Have Changed [id number], [address] [place], [place] [id number], [phone] START: clindamycin (clindamycin 300 mg oral cap) 1 Capsules By Mouth every 6 hours for 7 Days. Refills: 0. Other Medications START: clindamycin (clindamycin 150 mg Cap) 2 Capsules By Mouth 4 times a day. Refills: 0. PATIENT EDUCATION INFORMATION: Instructions: RICE Therapy for Routine Care of Injuries, Olts-ol-Igcq; Musculoskeletal Pain; Pain Without a Known Cause; Cellulitis, Adult, Qtyf-hm-Cevd Follow up: With: Address: When: THEO BURKS In 3 days 02/21/2023 Comments: Follow-up with your primary care provider in 3 to 5 days. If symptoms worsen, do not improve, or new symptoms arise please report back to emergency department for further evaluation. DIAGNOSIS: Cellulitis of right leg; Right leg pain Normal [facility] ED Note-Physicianon 02-19-20 ED Note-Physician Basic [...] and Complexity of Problems Differential Diagnosis: [] [facility] Data External documents reviewed: [] My [...] day(s), # 28 cap(s), Refills(s) 0, Pharm[facility]: [facility] #[id number], 170, cm, 02/18/23 7:51:00 EDT, Height/Length Dosing, 77, kg, 02/18/23 7:51:00 EDT, Weight Dosing ibuprofen, 800 mg = 1 tab(s), Tab, Oral, Once, Stop date 02/18/23 8:22:00 EDT, STAT, Start date 02/18/23 8:22:00 EDT, 02/18/23 8:22:00 EDT oxycodone, 5 mg = 1 tab(s), Tab, Oral, Once, Stop date 02/18/23 8:22:00 E (more content not included)... Normal [facility] Comment on above: Result Comment: Elec [...] these instructions at home: Medicines ? Take uwok-ehm-osgbfec and prescription medicines only as told by [...] Reviewed: 06/05/2022 Elsevier Patient Education ? 2022 [employer]. Orthopedics RICE Therapy for Routine Care of [...] bag. ? (more content not included)... Normal [facility] ED Patient Summaryon 023 ED Patient Summary [address] [address] Patient Discharge Instructions Person Information Name: WILL ANDERSON Age: 37 Years Arrival Date: 02/18/2023 07:40:40 Discharge Diagnosis: Cellulitis of right leg; Right leg pain Primary Care Physician: THEO BURKS Provider Information Primary Provider: Brent Sanches DO Advanced Maintenance Machinist:None The exam and treatment you received in the Emergency Department were for an urgent problem and are not intended as complete care. It is important that you follow up with a doctor, nurse practitioner, or physician?s assistant manager pt for ongoing care. If your symptoms become worse or you do not improve as expected and you are unable to reach your usual health care provider, you should return to the Emergency Department. We are available 24 hours a day. WILL ANDERSON has been given the following list of patient education materials, prescriptions and follow-up instructions: Follow-up Instructions: With: Address: When: THEO LIANG In 3 days 02/21/2023 Comments: Follow-up with [...] RICE Therapy for Routine Care of Injuries, Etwx-yl-Tqsj; Musculoskeletal Pain; Pain Without a Known Cause; Cellulitis, Adult, Drfq-oo-Bqqa A MESSAGE TO ALL PATIENTS REGARDING OPIOIDS PRESCRIPTION OPIOIDS: WHAT YOU NEED TO KNOW Prescription opioids can be used to help relieve ehjmukdv-rc-hdxknt pain and are often prescribed following a [...] ose t (more content not included)... Normal [facility] US LE Venous Duplex Righton 02-18-2023 LE Venous [...] M.D. Transcribed by: JUNIOR Technologist: TANIKA Razo [facility] Telephone Encounteron 2022 Raw Juice Weigher Authentication Interface Message Text Last written 10/27/22 Normal [facility] XA HEPATIC VENOGRAM W/ HEMOD YN [...] wedged hepatic: 32. Moderate sedation intraservice time 7136-5463 FLUOROSCOPIST: ERICA ROCK TIME: 41.6 Minutes ATTENDING PHYSICIAN: Erica Rock RESIDENT/FELLOW PHYSICIAN: Brayan Babin INTRA-PROCEDURE MEDS: iohexol (OMNIPAQUE) 350 MG/ML injection 40 mL Route: Other SEDATION TIME: Start time: 827 Stop time: 5 INFORMED CONSENT: Written informed consent was obtained. [...] microaccess catheter under fluoroscopic guidance. A 10 Greek curved tip renal vein sheath was then advanced over the wire into the right atrium. The obturator was removed and a 5 Greek MPB catheter was used to select the [...] vein was again selected with a 5 Greek MPB catheter which was then exchanged over an Amplatz wire for the 10 Greek venous sheath. This was repeated several times for attempted transvenous liver biopsy through the right hepatic vein; however, the 10 Greek sheath withdrew during attempted advancement of the biopsy catheter. The 10 Greek venous sheath was then withdrawn into the intrahepatic IVC. The middle hepatic vein was selected with the same 5 Greek catheter which was then exchanged over an Amplatz wire for the 10 Greek venous sheath. The 10 Greek transvenous biopsy catheter was then advanced into the middle hepatic venous sheath and deployed twice for liver biopsy. The transvenous biopsy catheter and a 10 Greek venous sheath were removed. Satisfactory hemostasis was [...] increased portosystemic gradient. MACRO: None Normal [facility] XA TRANSJUGULAR LIVER BIOPSY (CHRISTIANO)on 01-21-2023 [...] wedged hepatic: 32. Moderate sedation intraservice time [id number] FLUOROSCOPIST: ERICA ROCK TIME: 41.6 Minutes ATTENDING [...] microaccess catheter under fluoroscopic guidance. A 10 Greek curved tip renal vein sheath was then advanced over the wire into the right atrium. The obturator was removed and a 5 Greek MPB catheter was used to select the [...] vein was again selected with a 5 Greek MPB catheter which was then exchanged over an Amplatz wire for the 10 Greek venous sheath. This was repeated several times for attempted transvenous liver biopsy through the right hepatic vein; however, the 10 Greek sheath withdrew during attempted advancement of the biopsy catheter. The 10 Greek venous sheath was then withdrawn into the intrahepatic IVC. The middle hepatic vein was selected with the same 5 Greek catheter which was then exchanged over an Amplatz wire for the 10 Greek venous sheath. The 10 Greek transvenous biopsy catheter was then advanced into the middle hepatic venous sheath and deployed twice for liver biopsy. The transvenous biopsy catheter and a 10 Greek venous sheath were removed. Satisfactory hemostasis was [...] [facility] PROTHROMBIN TIME AND INRon 0 01-20-2023 INR Coag (PPP) [Relative time] 2.49 {INR} High 0.90-1.10 [facility] Comment on above: Performed By: #### P T #### [facility] [address] [place] [address], PT Coag (PPP) [Time] 27.9 s High 9.7-12.9 [facility] Comment on above: Performed By: #### P T #### [facility] [address] [place] [address], BASIC METABOLIC PANELon 05-0 Anion gap [Moles/Vol] 12 mmol/L Normal 10-20 [facility] Comment on above: Performed By: #### P T #### [facility] [address] [place] [address], Calcium [Mass/Vol] 8.3 mg/dL Low 8.4-10.4 [facility] Comment on above: Performed By: #### P T #### [facility] [address] [place] [address], Chloride [Moles/Vol] 105 mmol/L Normal 97-111 [facility] Comment on above: Performed By: #### P T #### S [facility] [address] [place] [address], CO2 [Moles/Vol] 26 mmol/L Normal 21-30 [facility] Comment on above: Performed By: #### P T #### [facility] [address] [place] [address], Creatinine [Mass/Vol] 0.60 mg/dL Low 0.80-1.30 [facility] Comment on above: Performed By: #### P T #### S [facility] [address] [place] [address], ESTIMATED GFR (CKD-EPI) 127 mL/min/1.73sqm Normal >=60 [facility] Comment [...] Inclusion of Race in Diagnosing Kidney Disease. [place] Journal of Kidney Diseases 2021;79(2):268-88.e1. 2. N Engl J Med 1 Vol. 385 Issue 19 Pages 8874-2822 Performed By: #### P T #### S [facility] [address] [place] [address], Potassium [Moles/Vol] 3.5 mmol/L Normal 3.3-5.3 [facility] Comment on above: Performed By: #### P T #### [facility] [address] [place] [address], Sodium [Moles/Vol] 139 mmol/L Normal 135-148 [facility] Comment on above: Performed By: #### P T #### S [facility] [address] [place] [address], Urea nitrogen [Mass/Vol] 4 mg/dL Low 8-22 [facility] Comment on above: Performed By: #### P T #### S [facility] [address] [place] [address], Basic metabolic 2000 panelon 01-12-2023 Anion gap [...] (S/P/Bld) [Vol rate/Area] 127 mL/min/{1.73_m2} - PINF [facility] Comment on above: 2020 CKD EPI [...] Inclusion of Race in Diagnosing Kidney Disease. [place] Journal of Kidney Diseases 2021;79(2):268-88.e1. 2. N Engl J Med 2020 Vol. 385 Issue 19 Pages 4178-7951 Glucose [Mass/Vol] 82 mg/dL 68 - 110 mg/dL [facility] Potassium [Moles/Vol] 3.5 mmol/L 3.3 - 5.3 mmol/L [facility] Sodium [Moles/Vol] 139 mmol/L 135 - 148 mmol/L [facility] Urea nitrogen [Mass/Vol] 4 mg/dL Low 8 - 22 mg/dL [facility] C-PEPTIDE, SERUMon C peptide [Mass/Vol] 3.52 ng/mL 0.81 - 3.85 ng/ mL [facility] Interpretation and review of laboratory results Normal [facility] CPEP 3.52 ng/mL Normal 0.81-3.85 [facility] Comment on above: Performed By: #### P T #### [facility] [address] [place] [address], [phone] CBC panel Auto (Bld)on 01-12 Erythrocyte distribution width (RBC) [Ratio] 15.7 % High 11.5 - 14.5 % [facility] Hematocrit (Bld) [Volume fraction] 35.4 % Low 41.0 - 53.0 % [facility] Hemoglobin (Bld) [Mass/Vol] 12.1 g/dL Low 13.9 - 16.3 g/dL [facility] Interpretation and review of laboratory results Abnormal [facility] MCH (RBC) [Entitic mass] 36.7 pg High 26.0 - 34.0 pg [facility] MCHC (RBC) [Mass/Vol] 34.3 g/dL 32.0 - 35.9 g/dL [facility] MCV (RBC) [Entitic vol] 107 fL High 80 - 100 fL [facility] Platelet mean volume (Bld) [Entitic vol] 8.3 fL 7.5 - 11.2 fL [facility] Platelets (Bld) [#/Vol] 110 10*3/uL Low 150 - 400 K/uL [facility] RBC (Bld) [#/Vol] 3.31 10*6/uL Low [facility] WBC (Bld) [#/Vol] 6.6 10*3/uL 4.5 - 11.5 K/uL [facility] COMPLETE BLOOD COUNTon 01-12 Erythrocyte distribution width (RBC) [Ratio] 15.7 % High 11.5-14.5 [facility] Comment on above: Performed By: #### P T #### [facility] [address] [place] [address], Hematocrit (Bld) [Volume fraction] 35.4 % Low 41.0-53.0 [facility] Comment on above: Performed By: #### P T #### [facility] [address] [place] [address], Hemoglobin (Bld) [Mass/Vol] 12.1 g/dL Low 13.9-16.3 [facility] Comment on above: Performed By: #### P T #### S [facility] [address] [place] [address], MCH (RBC) [Entitic mass] 36.7 pg High 26.0-34.0 [facility] Comment on above: Performed By: #### P T #### S [facility] [address] [place] [address], MCHC (RBC) [Mass/Vol] 34.3 g/dL Normal 32.0-35.9 [facility] Comment on above: Performed By: #### P T #### S [facility] [address] [place], [place], MCV (RBC) [Entitic vol] 107 fL High 80-100 [facility] Comment on above: Performed By: #### P T #### S [facility] [address] [place], [place], Platelet mean volume (Bld) [Entitic vol] 8.3 fL Normal 7.5-11.2 [facility] Comment on above: Performed By: #### P T #### S [facility] [address] [place], [place], Platelets (Bld) [#/Vol] 110 10*3/uL Low 150-400 [facility] Comment on above: Performed By: #### P T #### [facility] [address] [place] [address], RBC (Bld) [#/Vol] 3.31 10*6/uL Low 4.50-5.90 [facility] Comment on above: Performed By: #### P T #### [facility] [address] [place], [place], WBC (Bld) [#/Vol] 6.6 10*3/uL Normal 4.5-11.5 [facility] Comment on above: Performed By: #### P T #### [facility] [address] [place], [place], Diabetes tracking panelOrder ed By: Moi Christianson on 01-12-2023 Average glucose Estimated from glycated hemoglobin (Bld) [Mass/Vol] 82 mg/dL [facility] HbA1c (Bld) [Mass fraction] 4.5 % 4.0 - 5.6 % [facility] HEMOGLOBIN A1Con 01-12-2023 Glucose [Mass/Vol] 82 mg/dL Normal 68-110 [facility] Comment on above: Performed By: #### H B A1C ####[facility] [address] [place], [address] Performed By: #### P T #### S [facility] [address] [place] [address], HbA1c (Bld) [Mass fraction] 4.5 % Normal 4.0-5.6 [facility] Comment on above: Performed By: #### H B A1C ####[facility] [address] [place], [address] HEPATIC FUNCTION PANELon Albumin [Mass/Vol] 3.2 g/dL Low 3.4-5.1 [facility] Comment on above: Performed By: #### P T #### [facility] [address] [place] [address], ALK 336 IU/L High 40-200 [facility] Comment on above: Performed By: #### P T #### S [facility] [address] [place] [address], ALT [Catalytic activity/Vol] 43 U/L High 7-40 [facility] Comment on above: Performed By: #### P T #### S [facility] [address] [place] [address], AST [Catalytic activity/Vol] 73 U/L High 7-40 [facility] Comment on above: Performed By: #### P T #### [facility] [address] [place] [address], Bilirubin [Mass/Vol] 8.2 mg/dL High 0.1-1.5 [facility] Comment on above: Performed By: #### P T #### [facility] [address] [place] [address], Bilirubin.direct [Mass/Vol] 2.28 mg/dL High 0.10-0.30 [facility] Comment on above: Performed By: #### P T #### [facility] [address] [place] [address], Protein [Mass/Vol] 7.9 g/dL Normal 6.2-8.3 [facility] Comment on above: Performed By: #### P T #### [facility] [address] [place] [address], Albumin [Mass/Vol] 3.2 g/dL Low 3.4 - 5.1 g/dL [facility] ALP [Catalytic activity/Vol] 336 U/L High [facility] ALT [Catalytic activity/Vol] 43 U/L High [facility] AST [Catalytic activity/Vol] 73 U/L High [facility] Bilirubin [Mass/Vol] 8.2 mg/dL High 0.1 - 1.5 mg/dL [facility] Bilirubin.direct [Mass/Vol] 2.28 mg/dL High 0.10 - 0.30 mg/dL [facility] Protein [Mass/Vol] 7.9 g/dL 6.2 - 8.3 g/dL [facility] INSULINon 01-12-2023 Insulin Free Qn 38.9 High [facility] th Interpretation and review of laboratory results Abnormal [facility] INSUL 38.9 mIU/L High 2.0-25.0 [facility] Comment on above: Performed By: #### P T #### [facility] [address] [place] [address], No Panel Informationon 01-12 Interpretation and review of laboratory results Abnormal [facility] PROTHROMBIN TIME AND INRon 0 01-12-2023 INR Coag (PPP) [Relative time] 1.87 {INR} High 0.90-1.10 [facility] Comment on above: Performed By: #### P T #### S [facility] [address] [place] [address], PT Coag (PPP) [Time] 21.0 s High 9.7-12.9 [facility] Comment on above: Performed By: #### P T #### [facility] [address] [place] [address], INR Coag (PPP) [Relative time] 1.87 {INR} High 0.90 - 1.10 [facility] Interpretation and review of laboratory results Abnormal [facility] PT Coag (PPP) [Time] 21.0 s High [facility] Progress Noteson 01-12-2023 Raw Juice Weigher Authentication Interface Message Text Labs drawn peripherally from right forearm. Normal [facility] Raw Juice Weigher Authentication Interface Message Text Hematology AND Oncology [...] B27 positive) 2003 Followed with [facility]um at [facility] Open fracture of other and unspecified [...] angela (more content not included)... [facility] Raw Juice Weigher Authentication Interface Message Text Patient was identified [...] oz (79 kg), SpO2 100 %. Gustabo Hernandeztman Toya Normal [facility] [employer] Authentication Interface Message Text Patient was identified by name and date of . April Jewell Patient at risk for falls:No Falls Risk protocol implemented: No Normal [facility] Interface Message Text Attestation signed by Haley [...] Gary MD Division of Gastroenterology AND Hepatology [facility] Department of Gastroenterology and Hepatology [...] visit. (more content not included)... Normal [facility] Patient Instructionson 12-16 Raw Juice Weigher Authentication Interface Message Text [facility] Medicine [phone] [address] [facility] [address] Lab tests can be done at a scheduled visit, or by appointment. [facility] [phone] [address] [address] Park in the [facility] (P[address]) Under the [facility]. Pathology is located in the [facility] [place] of the [facility] on the 2nd floor. Please fill out the paper form at the front office spec then have a seat in the Outpatient Blood Draw Lab (Pathology) waiting area. Hours Thursday 07:00 AM - 05:30 PM Thursday 07:00 AM - 05:30 PM Thursday 07:00 AM - 05:30 PM 07:00 AM - 05:30 PM Thursday 07:00 AM - 05:30 PM [facility] [phone] [place] [address] Follow the overhead sign to [place]: Radiology/X-ray AND Lab (right arrow). Check in for testing at the Radiology AND Lab Set Up Person window. Hours Thursday 10:00 AM - 02:00 PM Thursday 08:00 AM - 07:30 PM Thursday 08:00 AM - 07:30 PM Thursday 08:00 AM - 07:30 PM 08:00 AM - 07:30 PM Thursday 08:00 AM - 07:30 PM Thursday 08:00 AM - 04:00 PM [facility] [phone] [place] [address] [place] at the front office spec and you will be directed to the waiting area. Laboratory staff will take you back to the laboratory. Hours Thursday 10:00 AM - 02:00 PM Thursday 07:30 AM - 07:30 PM Thursday 07:30 AM - 07:30 PM Thursday 07:30 AM - 07:30 PM 07:30 AM - 07:30 PM Thursday 07:15 AM - 07:45 PM Thursday 08:00 AM - 04:00 PM [facility] [phone] [place], [place] [id number] Enter through the front door and continue [...] PM Thursday 08:00 AM - 04:00 PM [facility] [phone] [place], [place] [id number] The [facility] is located on the first [...] PM Thursday 07:30 AM - 05:00 PM [facility] [phone] [place] [address] The [facility] is located on the first floor, room A1-0774. Enter through the Emergency doors and follow the signs to Medical Offices , making a right turn. [place] at the Registration 1A desk at the end of the hallway, then proceed to the Laboratory on the right. Hours Thursday 07:30 AM - 05:00 PM Thursday 07:30 AM - 05:00 PM Thursday 07:30 AM - 05:00 PM 07:30 AM - 05:00 PM Thursday 07:30 AM - 05:00 PM [facility] [phone] [place], [place] [id number] The [facility] is located on the first [...] 08:00 AM - 05:00 PM Normal [facility] Progress Noteson 12-16-2022 Raw Juice Weigher Authentication Interface Message Text Chief Complaint: Will [...] no previous surgical history on file. Diagnostics: [facility] and Outside laboratory/diagnostic s [...] on file. Dejuan Lechuga MD Normal [facility] Raw Juice Weigher Authentication Interface Message Text Patient was identified by name and date of . Aleja Rolon Normal [facility] Progress Noteson 12-15-2022 Raw Juice Weigher Authentication Interface Message Text [facility] Telemedicine Visit CC: Chief Complaint Patient presents with Fall HPI: Patient is a 37 year old cordero with a history of cirrhosis , autoimmune hemolytic anemia who presents for the below. 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 OBJECTIVE: Sounds ewll, no acute distress Breathing comfrotably on room air ASSESSMENT AND PLAN: 1. Rib pain Orders AND Meds Signed During This Encounter X-ray Ribs Left Unilateral (Routine) lidocaine (LIDODERM) 5 % patch Documentation: Mode: Telephone Patient Patient Work Phone: Patient Cell Preferred phone: [phone] Consent: I confirmed patient understanding of the [...] Theo Burks MD Family Medicine Normal [facility] Telephone Encounteron 2022 Raw Juice Weigher Authentication Interface Message Text Called patient and made appointment with tomorrow Normal [facility] Telephone Encounteron 2022 Raw Juice Weigher Authentication Interface Message Text Called patient and made appointment Normal [facility] ALPHA FETOPROTEIN TUMOR ANDRIA Jeri 11-13-2022 AFP 4.4 ng/mL Normal <=8.4 [facility] Comment on above: Performed By: #### P T #### S PATHOLOGY LABORATORY [address] [place] [address], AFP 4.4 ng/mL NINF - 8.4 ng/mL [facility] Interpretation and review of laboratory results Normal [facility] BASIC METABOLIC PANELon Anion gap [Moles/Vol] 10 mmol/L Normal 10-20 [facility] Comment on above: Performed By: #### P T #### [facility] [address] [place] [address], Calcium [Mass/Vol] 8.7 mg/dL Normal 8.4-10.4 [facility] Comment on above: Performed By: #### P T #### S PATHOLOGY LABORATORY [address] [place] [address], Chloride [Moles/Vol] 102 mmol/L Normal 97-111 [facility] Comment on above: Performed By: #### P T #### S PATHOLOGY LABORATORY [address] [place] [address], CO2 [Moles/Vol] 30 mmol/L Normal 21-30 [facility] Comment on above: Performed By: #### P T #### [facility] [address] [place] [address], Creatinine [Mass/Vol] 0.50 mg/dL Low 0.80-1.30 [facility] Comment on above: Performed By: #### P T #### [facility] [address] [place] [address], ESTIMATED GFR (CKD-EPI) 134 mL/min/1.73sqm Normal >=60 [facility] Comment on above: Result Comment: 2020 [...] Inclusion of Race in Diagnosing Kidney Disease. [place] Journal of Kidney Diseases 2021;79(2):268-88.e1. 2. N Engl J Med 1 Vol. 385 Issue 19 Pages 6438-9778 Performed By: #### P T #### [facility] [address] [place] [address], Glucose [Mass/Vol] 70 mg/dL Normal 68-110 [facility] Comment on above: Performed By: #### P T #### S PATHOLOGY LABORATORY [address] [place] [address], Potassium [Moles/Vol] 3.1 mmol/L Low 3.3-5.3 [facility] Comment on above: Performed By: #### P T #### S PATHOLOGY LABORATORY [address] [place] [address], Sodium [Moles/Vol] 139 mmol/L Normal 135-148 The [facility] Comment on above: Performed By: #### P T #### S PATHOLOGY LABORATORY [address] [place] [address], Urea nitrogen [Mass/Vol] 5 mg/dL Low 8-22 [facility] Comment on above: Performed By: #### P T #### S PATHOLOGY LABORATORY [address] [place] [address], Basic metabolic 2000 panelon 11-13-2022 Anion gap [Moles/Vol] 10 mmol/L 10 - 20 [facility] Calcium [Mass/Vol] 8.7 mg/dL 8.4 - 10.4 mg/dL [facility] Chloride [Moles/Vol] 102 mmol/L 97 - 111 mmol/L [facility] CO2 [Moles/Vol] 30 mmol/L 21 - 30 mmol/L [facility] Creatinine [Mass/Vol] 0.50 mg/dL Low 0.80 - 1.30 mg/dL [facility] GFR/1.73 sq M.predicted MDRD (S/P/Bld) [Vol rate/Area] 134 mL/min/{1.73_m2} - [facility] Comment on above: 2020 CKD EPI [...] Inclusion of Race in Diagnosing Kidney Disease. [place] Journal of Kidney Diseases 2021;79(2):268-88.e1. 2. N Engl J Med 2020 Vol. 385 Issue 19 Pages 8019-3641 Glucose [Mass/Vol] 70 mg/dL 68 - 110 mg/dL [facility] Potassium [Moles/Vol] 3.1 mmol/L Low 3.3 - 5.3 mmol/L [facility] Sodium [Moles/Vol] 139 mmol/L 135 - 148 mmol/L [facility] Urea nitrogen [Mass/Vol] 5 mg/dL Low 8 - 22 mg/[facility] WITH DIFFERENTIALon 03-0 Basophils (Bld) [#/Vol] 0.04 10*3/uL Normal 0.00-0.20 [facility] Comment on above: Performed By: #### A RETIC, CBCDSAT ####[facility] PATHOLOGY [id number] [place], [place], Basophils/100 WBC (Bld) 0.6 % Normal <=1.9 [facility] Comment on above: Performed By: #### A RETIC, CBCDSAT ####S PATHOLOGY [id number] [place], [place], Eosinophils (Bld) [#/Vol] 0.21 10*3/uL Normal 0.00-0.70 [facility] Comment on above: Performed By: #### A RETIC, CBCDSAT ####S PATHOLOGY [id number] [place], [place], Eosinophils/100 WBC (Bld) 3.6 % Normal 0.1-4.0 [facility] Comment on above: Performed By: #### A RETIC CBCDSAT ####[facility] PATHOLOGY [id number] [place], [place], Erythrocyte distribution width (RBC) [Ratio] 15.8 % High 11.5-14.5 [facility] Comment on above: Performed By: #### A RETIC CBCDSAT ####[facility] PATHOLOGY [id number] [place] [address], Hematocrit (Bld) [Volume fraction] 29.4 % Low 41.0-53.0 [facility] Comment on above: Performed By: #### A RETIC CBCDSAT ####[facility] PATHOLOGY [id number] [place] [address], Hemoglobin (Bld) [Mass/Vol] 10.4 g/dL Low 13.9-16.3 [facility] Comment on above: Performed By: #### A RETIC CBCDSAT ####[facility] PATHOLOGY [id number] [place] [address], Lymphocytes (Bld) [#/Vol] 1.21 10*3/uL Normal 1.00-4.80 [facility] Comment on above: Performed By: #### A RETIC CBCDSAT ####[facility] PATHOLOGY [id number] [place] [address], Lymphocytes/100 WBC (Bld) 21.2 % Low 24.0-44.0 [facility] Comment on above: Performed By: #### A RETIC CBCDSAT ####[facility] PATHOLOGY [id number] [place] [address], MCH (RBC) [Entitic mass] 38.5 pg High 26.0-34.0 [facility] Comment on above: Performed By: #### A RETIC CBCDSAT ####S PATHOLOGY [id number] [place] [address], MCHC (RBC) [Mass/Vol] 35.3 g/dL Normal 32.0-35.9 [facility] Comment on above: Performed By: #### A RETIC CBCDSAT ####[facility] PATHOLOGY [id number] [place], [place], MCV (RBC) [Entitic vol] 109 fL High 80-100 [facility] Comment on above: Performed By: #### A RETIC CBCDSAT ####[facility] PATHOLOGY [id number] [place] [address], MONOCYTE DISTRIBUTION WIDTH Normal [facility] Comment on above: Performed By: #### A RETIC CBCDSAT ####[facility] PATHOLOGY [id number] [place] [address], Monocytes (Bld) [#/Vol] 0.65 10*3/uL Normal 0.20-1.00 [facility] Comment on above: Performed By: #### A RETIC CBCDSAT ####[facility] PATHOLOGY [id number] [place] [address], Monocytes/100 WBC (Bld) 11.4 % High 2.0-11.0 [facility] Comment on above: Performed By: #### A RETIC CBCDSAT ####[facility] PATHOLOGY [id number] [place] [address], Neutrophils (Bld) [#/Vol] 3.63 10*3/uL Normal 1.50-8.00 [facility] Comment on above: Performed By: #### A RETIC CBCDSAT ####[facility] PATHOLOGY [id number] [place] [address], Neutrophils/100 WBC (Bld) 63.2 % Normal 31.0-76.0 [facility] Comment on above: Performed By: #### A RETIC CBCDSAT ####[facility] PATHOLOGY [id number] [place] [address], Platelet mean volume (Bld) [Entitic vol] 8.2 fL Normal 7.5-11.2 [facility] Comment on above: Performed By: #### A RETIC, CBCDSAT ####[facility] PATHOLOGY [id number] [place] [address], Platelets (Bld) [#/Vol] 82 10*3/uL Low 150-400 [facility] Comment on above: Performed By: #### A RETIC, CBCDSAT ####[facility] PATHOLOGY [id number] [place], [place], RBC (Bld) [#/Vol] 2.69 10*6/uL Low 4.50-5.90 [facility] Comment on above: Performed By: #### A RETIC, CBCDSAT ####[facility] PATHOLOGY [id number] [place], [place], WBC (Bld) [#/Vol] 5.7 10*3/uL Normal 4.5-11.5 [facility] Comment on above: Performed By: #### A RETIC, CBCDSAT ####[facility] PATHOLOGY [id number] [place], [place], Basophils (Bld) [#/Vol] 0.04 10*3/uL 0.00 [...] [#/Vol] 3.63 10*3/uL 1.50 - 8.00 K/uL [facility] Neutrophils/100 WBC (Bld) 63.2 % 31.0 - 76.0 % [facility] Platelet mean volume (Bld) [Entitic vol] 8.2 fL 7.5 - 11.2 fL [facility] Platelets (Bld) [#/Vol] 82 10*3/uL Low 150 - 400 K/uL [facility] RBC (Bld) [#/Vol] 2.69 10*6/uL Low [facility] WBC (Bld) [#/Vol] 5.7 10*3/uL 4.5 - 11.5 K/uL [facility] DIRECT ANTIGLOBULIN TESTon 0 11-13-2022 AYLIN PS INT Negative Normal [facility] Comment on above: Performed By: #### D AT ####[facility] PATHOLOGY [id number] [place], [place], Direct antiglobulin test.poly specific reagent Ql (RBC) Negative [facility] HAPTOGLOBINon 11-13-2022 HAPTOGLOBIN < 30 Low 36-220 [facility] Comment on above: Performed By: #### H EMO DNA #### [facility] [address] [place], [place] Haptoglobin [Mass/Vol] mg/dL Low 36 - 220 mg/dL [facility] Interpretation and review of laboratory results Abnormal [facility] HEMOCHROMATOSIS DNA TESTon 0 11-13-2022 HFE GENE MUTATION ANALYSIS See Below Normal [facility] Comment on above: Order Comment: Kelly esparza Agency Address Site ID: [id number] Name: [facility], Address: [address] [place] [id number] Director: Ambika Lara MD,PhD,HÉCTOR Result Comment: RESU [...] information reviewed by Lorna Strong, Ph.D., FACMG, [facility], [facility]. DETAILED ASSAY INFORMATION: Hereditary hemochromatosis (HH) [...] variants in the HFE gene, C282Y (NM 417244.2: c.845G>A, p.[id number]) and H63D (NM 088392.2: c.187C>G, p.Bnb78Fwc), that are commonly associated with HH. These [...] Health care providers, please contact your local [facility] genetic counselor or call [phone] for assistance with the interpretation of these results. This test was developed and its analytical performance characteristics have been determined by [facility]. It has not been cleared or approved by FDA. This assay has been validated pursuant to the CLIA regulations and is used for clinical purposes. For more information, please refer to http://education.[employer]/faq/hemochromatosis. (This link is being provided for informational/educational purposes only.) Reviewed and signed by Laboratory results and submitted clinical information reviewed by Lorna Strong, Ph.D., FACMG, HCLD, CGMB, Signed on 11/28/2022 at 20:40 Performed By: #### H EMO DNA #### [facility] [address] [place] [address] [place], [place] HEPATIC FUNCTION PANELon Albumin [Mass/Vol] 2.9 g/dL Low 3.4-5.1 [facility] Comment on above: Performed By: #### H EMO DNA #### [facility] [address] [place] [address] [place], [place] ALK 386 IU/L High 40-200 [facility] Comment on above: Performed By: #### H EMO DNA #### [facility] [address] [place] [address] [place], [place] ALT [Catalytic activity/Vol] 36 U/L Normal 7-40 [facility] Comment on above: Performed By: #### H EMO DNA #### [facility] [address] [place] [address] [place], [place] AST [Catalytic activity/Vol] 68 U/L High 7-40 [facility] Comment on above: Performed By: #### H EMO DNA #### [facility] [address] [place] [address] [place], [place] Bilirubin [Mass/Vol] 6.9 mg/dL High 0.1-1.5 [facility] Comment on above: Performed By: #### H EMO DNA #### [facility] [address] [place] [address] [place], [place] Bilirubin.direct [Mass/Vol] 1.88 mg/dL High 0.10-0.30 [facility] Comment on above: Performed By: #### H EMO DNA #### [facility] [address] [place] [address] [place], [place] Protein [Mass/Vol] 7.0 g/dL Normal 6.2-8.3 [facility] Comment on above: Performed By: #### H EMO DNA #### [facility] [address] [facility] [place], [place] Albumin [Mass/Vol] 2.9 g/dL Low 3.4 - 5.1 g/dL [facility] ALP [Catalytic activity/Vol] 386 U/L High [facility] ALT [Catalytic activity/Vol] 36 U/L [facility] AST [Catalytic activity/Vol] 68 U/L High [facility] Bilirubin [Mass/Vol] 6.9 mg/dL High 0.1 - 1.5 mg/dL [facility] Bilirubin.direct [Mass/Vol] 1.88 mg/dL High 0.10 - 0.30 mg/dL [facility] Protein [Mass/Vol] 7.0 g/dL 6.2 - 8.3 g/dL [facility] LDHon 11-13-2022 LD 255 IU/L High 50-220 [facility] Comment on above: Performed By: #### H EMO DNA #### [facility] [address] [facility] [place], [place] LDH [Catalytic activity/Vol] 255 U/L High [facility] No Panel Informationon 11-13 Interpretation and review of laboratory results Abnormal [facility] Interpretation and review of laboratory results Abnormal [facility] PROTHROMBIN TIME AND INRon 0 11-13-2022 INR Coag (PPP) [Relative time] 1.71 {INR} High 0.90-1.10 [facility] Comment on above: Performed By: #### P T #### [facility] [address] [place] [address], PT Coag (PPP) [Time] 19.2 s High 9.7-12.9 [facility] Comment on above: Performed By: #### P T #### [facility] [address] [place] [address], INR Coag (PPP) [Relative time] 1.71 {INR} High 0.90 - 1.10 [facility] Interpretation and review of laboratory results Abnormal [facility] PT Coag (PPP) [Time] 19.2 s High [facility] Progress Noteson 03-09-2023 Raw Juice Weigher Authentication Interface Message Text Will Ramo presents for oncology nurse visit Patient was identified by name and date of . Patient at risk for falls: No Falls Risk protocol implemented: No Has the patient started any medications, over the counter medications or herbal medications? No Blood drawn from Peripheral venipuncture LAC Complications: None. Marlin Polanco RN Normal [facility] Raw Juice Weigher Authentication Interface Message Text Hematology AND Oncology [...] B27 positive) 2003 Followed with [facility]um at [facility] Open fracture of other and unspecified [...] Co (more content not included)... Normal [facility] Raw Juice Weigher Authentication Interface Message Text .Patient was identified by name and date of . Jojo Garcia .Patient at risk for falls:No Falls Risk protocol implemented: No Normal [facility] RETICULOCYTE COUNTon 023 IMMATURE RETICULOCYTE FRACTION 0.45 Normal 0.30-0.50 [facility] Comment on above: Performed By: #### A RETIC, CBCDSAT #### S PATHOLOGY LABORATORY [address] [place] [address], RETIC # 0.09 M/uL High 0.03-0.08 [facility] Comment on above: Performed By: #### A RETIC, CBCDSAT #### S PATHOLOGY LABORATORY [address] [place], [place], RETIC % 3.3 % High 0.5-1.5 [facility] Comment on above: Performed By: #### A RETIC, CBCDSAT #### [facility] [address] [place], [place], Immature reticulocytes/Total reticulocytes (Bld) 0.45 % 0.30 - 0.50 [facility] Reticulocytes (Bld) [#/Vol] 0.09 10*3/uL High [facility] Reticulocytes/100 RBC (Bld) 3.3 % High 0.5 - 1.5 % [facility] Progress Noteson 10-27-2022 Raw Juice Weigher Authentication Interface Message Text Department of Gastroenterology [...] t (more content not included)... Normal [facility] Raw Juice Weigher Authentication Interface Message Text Patient was identified by name and date of . Eze SchillingPatient at risk for falls:No Falls Risk protocol implemented: No Normal [facility] SMOOTH MUSC ATB SCRN & TITRO rdered By: Juan Luis Ferguson on 08-26-2022 Interpretation and review of laboratory results Normal [facility] Work Phone: Smooth muscle Ab Ql (S) Negative Negative [facility] Work Phone: Negative SMA test does not exclude the possibility of chronic liver disease. . I certify that I personally conducted the diagnostic evaluation of the above specimen(s) and have rendered the final diagnosis(es). [facility] Work Phone: [facility] Work Phone: Basic metabolic 2000 panelon 08-25-2022 [...] Inclusion of Race in Diagnosing Kidney Disease. [place] Journal of Kidney Diseases 202;79(2):268-88.e1. 2. N Engl J Med 2020 Vol. 385 Issue 19 Pages 9274-9521 Glucose [Mass/Vol] 55 mg/dL Low 68 - [...] ng/mL High 11.5 - 3 00.0 ng/mL [facility] Albumin [Mass/Vol] 3.0 g/dL Low 3.4 - 5.1 g/dL [facility] ALP [Catalytic activity/Vol] 389 U/L High [facility] ALT [Catalytic activity/Vol] 56 U/L High [facility] AST [Catalytic activity/Vol] 103 U/L High [facility] Bilirubin [Mass/Vol] 7.7 mg/dL High 0.1 - 1.5 mg/dL [facility] Bilirubin.direct [Mass/Vol] 2.20 mg/dL High 0.10 - 0.30 mg/dL [facility] Iron [Mass/Vol] 237 ug/dL High 45 - 160 ug/dL [facility] Iron binding capacity [Mass/Vol] 248 ug/mL Low 250 - 410 ug/mL [facility] Iron saturation [Mass fraction] 96 % High 20 - 55 % [facility] Protein [Mass/Vol] 7.2 g/dL 6.2 - 8.3 g/dL [facility] Transferrin [Mass/Vol] 177 mg/dL Low 210 - 375 mg/dL [facility] Laboratory - Serology - non- microon 08-25-2022 Immune complex.IgG [Mass/Vol] 1995 mg/dL High 768 - 1632 mg/dL [facility] No Panel Informationon 08-25 Interpretation and review of laboratory results Abnormal [facility] Interpretation and review of laboratory results Abnormal [facility] Interpretation and review of laboratory results Abnormal [facility] XR Knee - right Viewson 120 EXAMINATION: XR KNEE RT ANY 4 OR [...] the calcaneus anteriorly. Right knee MACRO: None [facility] Radiology Study observation (narrative) [facility] XR Knee - right ViewsOrdered By: Colby Mcintosh on 08-15-2022 [facility] Work Phone: Basic metabolic 2000 panelon 08-14-2022 [...] MDRD (S/P/Bld) [Vol rate/Area] 131 mL/min/{1.73_m2} [facility] Comment on above: 2020 CKD EPI [...] Inclusion of Race in Diagnosing Kidney Disease. [place] Journal of Kidney Diseases 202;79(2):268-88.e1. 2. N Engl J Med 2020 Vol. 385 Issue 19 Pages 8895-4546 Glucose [Mass/Vol] 89 mg/dL 68 - 110 mg/dL [facility] Potassium [Moles/Vol] 3.0 mmol/L Low 3.3 - 5.3 mmol/L [facility] Sodium [Moles/Vol] 132 mmol/L Low 135 - 148 mmol/L [facility] Urea nitrogen [Mass/Vol] 5 mg/dL Low 8 - 22 mg/dL [facility] - Chemistry and C hemistry - challengeon 08-14-2022 Urate [Mass/Vol] 1.9 mg/dL Low 2.0 - 7.3 mg/dL [facility] Albumin [Mass/Vol] 2.9 g/dL Low 3.4 - 5.1 g/dL [facility] ALP [Catalytic activity/Vol] 245 U/L High [...] [Mass/Vol] 6.4 g/dL 6.2 - 8.3 g/dL [facility] Creatinine (U) [Mass/Vol] 57 mg/dL 10 - 300 mg/dL [facility] Protein/Creatinine (U) [Mass ratio] 123 mg/g NINF - 164 mg/g [facility] Bilirubin Ql (U) Positive Abnormal Negative [facility] Ketones Ql (U) Negative Negative mg/dL [facility] pH (U) 7.0 [pH] 5.0 - 8.0 [facility] Specific gravity (U) [Rel density] Low 1.005 - 1.030 [facility] Urobilinogen Qn (U) >=8.0 Abnormal 0.2 - 1.0 mg/dL [facility] Laboratory - Hematology and Cell countson 08-14-2022 [...] 10*3/uL 4.5 - 11.5 K/uL [facility] - Specimen inform ationon 08-14-2022 Appearance (U) Clear Clear [facility] Color (U) Light Yellow Yellow [facility] - Urinalysison Protein (U) [Mass/Vol] 7 mg/dL NINF - 100 mg/dL [facility] Bacteria LM.HPF (Urine sed) [#/Area] Few /HPF [facility] Glucose Auto test strip (U) [Mass/Vol] Negative Negative mg/dL [facility] Leukocyte esterase Test strip Ql (U) Moderate Abnormal Negative Svitlana/uL [facility] Nitrite Ql (U) Negative Negative [facility] Protein (U) [Mass/Vol] Negative Negative mg/dL [facility] WBC (U) [#/Vol] 0-2 [facility] WBC LM.HPF (Urine sed) [#/Area] 6-10 Abnormal [facility] No Panel InformationOrdered By: Tayla Strickland on 08-14-2022 Interpretation and review of laboratory results Abnormal [facility] No Panel Informationon 08-14 Interpretation and review of laboratory results Abnormal [facility] Interpretation and review of laboratory results Abnormal [facility] Interpretation and review of laboratory results Normal [facility] Interpretation and review of laboratory results Abnormal [facility] A negative leukocyte esterase AND negative nitrite [...] (positive predictive value for UTI around 50%) [facility] US.doppler Lower extremity v ein - righton [...] extremity deep venous thrombosis identified. MACRO: None [facility] Radiology Study observation (narrative) [facility] US.doppler Lower extremity v ein - rightOrdered By: Enrique Basurto on 08-14-2022 [facility] Work Phone: Basic metabolic 2000 panelon 05-06-2022 Anion gap [Moles/Vol] 11 mmol/L 10 - 20 [facility] Calcium [Mass/Vol] 8.9 mg/dL 8.4 - 10.4 mg/dL [facility] Chloride [Moles/Vol] 105 mmol/L 97 - 111 mmol/L [facility] CO2 [Moles/Vol] 25 mmol/L 21 - 30 mmol/L [facility] Creatinine [Mass/Vol] 0.58 mg/dL Low 0.8 - 1.3 mg/dL [facility] Comment on above: Grossly icteric; may falsely decrease creatinine GFR/1.73 sq M.predicted MDRD (S/P/Bld) [Vol rate/Area] 129 mL/min/{1.73_m2} - PINF [facility] Comment on above: 2020 CKD EPI [...] Inclusion of Race in Diagnosing Kidney Disease. Citizen Of [place] Journal of Kidney Diseases 202;79(2):268-88.e1. 2. N Engl J Med 2020 Vol. 385 Issue 19 Pages 3198-6039 Glucose [Mass/Vol] 79 mg/dL 68 - 110 mg/dL [facility] Interpretation and review of laboratory results Abnormal [facility] Potassium [Moles/Vol] 3.6 mmol/L 3.3 - 5.3 mmol/L [facility] Sodium [Moles/Vol] 137 mmol/L 135 - 148 mmol/L [facility] Urea nitrogen [Mass/Vol] 3 mg/dL Low 8 - 22 mg/dL [facility] CBC WITH DIFFERENTIALOrdered By: Isak Mitchell on [...] 11.5 g/dL Low 13.9 - 16.3 g/dL [facility] Interpretation and review of laboratory results Abnormal [facility] Lymphocytes (Bld) [#/Vol] 1.14 10*3/uL 1 - 4.8 K/uL [facility] Lymphocytes/100 WBC (Bld) 27.1 % 24 - 44 % [facility] MCH (RBC) [Entitic mass] 35.6 pg High 26 - 34 pg [facility] MCHC (RBC) [Mass/Vol] 35.2 g/dL 32 - 35.9 g/dL [facility] MCV (RBC) [Entitic vol] 101 fL High 80 - 100 fL [facility] Monocyte distribution width Auto (Bld) [Entitic vol] [facility] Monocytes (Bld) [#/Vol] 0.69 10*3/uL 0.2 - 1 K/uL [facility] Monocytes/100 WBC (Bld) 16.4 % High 2 - 11 % [facility] Neutrophils (Bld) [#/Vol] 2.21 10*3/uL 1.5 - 8 K/uL [facility] Neutrophils/100 WBC (Bld) 52.8 % 31 - 76 % [facility] Plate[facility] mean volume (Bld) [Entitic vol] 7.9 fL 7.5 - 11.2 fL [facility] Platelets (Bld) [#/Vol] 90 10*3/uL Low 150 - 400 K/uL [facility] RBC (Bld) [#/Vol] 3.21 10*6/uL Low [facility] WBC (Bld) [#/Vol] 4.2 10*3/uL Low 4.5 - 11.5 K/uL [facility]APTOGLOBIN[facility] 05-06-2022 Haptoglobin [Mass/Vol] mg/dL Low 36 - 220 mg/dL [facility] Interpretation and review of laboratory results Abnormal [facility] HEPATIC FUNCTION PANELon Albumin [Mass/Vol] 3.0 g/dL Low 3.4 - 5.1 g/dL [facility] ALP [Catalytic activity/Vol] 373 U/L High [facility] ALT [Catalytic activity/Vol] 47 U/L High [facility] AST [Catalytic activity/Vol] 87 U/L High [facility] Bilirubin [Mass/Vol] 8.3 mg/dL High 0.1 - 1.5 mg/dL [facility] Bilirubin.direct [Mass/Vol] 1.50 mg/dL High 0.1 - 0.3 mg/dL [facility] Protein [Mass/Vol] 6.7 g/dL 6.2 - 8.3 g/dL [facility] LDHon 05-06-2022 LDH [Catalytic activity/Vol] 270 U/L High [facility] No Panel Informationon 05-06 Interpretation and review of laboratory results Abnormal [facility] URIC ACIDon 05-06-2022 Interpretation and review of laboratory results Normal [facility] Urate [Mass/Vol] 3.2 mg/dL 2 - 7.3 mg/dL [facility] Basic metabolic 2000 panelon 03-13-2022 Anion gap [Moles/Vol] 11 mmol/L [facility] Calcium [Mass/Vol] 8.2 mg/dL Low 8.4 - 10.4 mg/dL [facility] Chloride [Moles/Vol] 103 mmol/L 97 - 111 mmol/L [facility] CO2 [Moles/Vol] 25 mmol/L 21 - 30 mmol/L [facility] Creatinine [Mass/Vol] 0.51 mg/dL Low 0.80 - 1.30 mg/dL [facility] Comment on above: Grossly icteric; may falsely decrease creatinine GFR/1.73 sq M.predicted MDRD (S/P/Bld) [Vol rate/Area] 134 mL/min/{1.73_m2} >=60 mL/min/1.73sqm [facility] Comment on above: 2020 CKD EPI Equatio [...] Inclusion of Race in Diagnosing Kidney Disease. [place] Journal of Kidney Diseases 202;79(2):268-88.e1. 2. N Engl J Med 2020 Vol. 385 Issue 19 Pages 7738-8750 Glucose [Mass/Vol] 119 mg/dL High 68 - 110 mg/dL [facility] Interpretation and review of laboratory results Abnormal [facility] Potassium [Moles/Vol] 3.6 mmol/L 3.3 - 5.3 mmol/L [facility] Sodium [Moles/Vol] 135 mmol/L 135 - 148 mmol/L [facility] Urea nitrogen [Mass/Vol] 3 mg/dL Low 8 - 22 mg/dL [facility] CBC WITH DIFFERENTIALon 07-0 Basophils (Bld) [#/Vol] [...] 2.6 g/dL Low 3.4 - 5.1 g/dL [facility] ALP [Catalytic activity/Vol] 278 U/L High [facility] ALT [Catalytic activity/Vol] 33 U/L [facility] AST [Catalytic activity/Vol] 68 U/L High [facility] Bilirubin [Mass/Vol] 5.6 mg/dL High 0.1 - 1.5 mg/dL [facility] Bilirubin.direct [Mass/Vol] 1.20 mg/dL High 0.10 - 0.30 mg/dL [facility] LDH [Catalytic activity/Vol] 258 U/L High [facility] Protein [Mass/Vol] 6.2 g/dL 6.2 - 8.3 g/dL [facility] Urate [Mass/Vol] 3.0 mg/dL 2.0 - 7.3 mg/dL [facility] - Hematology and Cell countson 03-13-2022 Haptoglobin [Mass/Vol] mg/dL Low 36 - 220 mg/dL [facility] No Panel Informationon 03-13 Interpretation and review of laboratory results Abnormal [facility] Interpretation and review of laboratory results Abnormal [facility] Interpretation and review of laboratory results Normal [facility] CHEMISTRYOrdered By: SYSTEM SYSTEM on 02-17-2022 Lactate [Mass/Vol] 1.8 mmol/L Normal 0.5 - 2.2 mmol/L [facility] Albumin [Mass/Vol] 2.8 g/dL Low 3.3 - 5.0 gm/dL F [facility] Remisol Albumin/Globulin [Mass ratio] 0.7 {ratio} Low 1.1 - 2.2 [facility] ALP [Catalytic activity/Vol] 265 [iU]/d High 21 - 98 Int._Unit/L [facility] ALT No additional P-5'-P [Catalytic activity/Vol] 60 [iU]/d High 6 - 46 Int._Unit/L [facility] Remisol Anion gap [Moles/Vol] 12 mmol/L Normal 6 - 16 mEq/L [facility] AST [Catalytic activity/Vol] 93 [iU]/d High 5 - 43 Int._Unit/L [facility] Bilirubin [Mass/Vol] 6.2 mg/dL High 0.0 - 1.1 mg/dL [facility] Bilirubin.direct [Mass/Vol] 1.6 mg/dL High 0.1 - 0.4 mg/dL [facility] Bilirubin.indirect [Mass or moles/Vol] 4.6 mg/dL High 0.1 - 0.9 mg/dL [facility] Calcium [Mass/Vol] 8.0 mg/dL Low 8.9 - 11.1 mg/dL [facility] Chloride [Moles/Vol] 102 mmol/L Normal 101 - 111 mmol/ L [facility] CO2 [Moles/Vol] 22 mmol/L Normal 21 - 31 mmol/L [facility] Creatinine [Mass/Vol] 0.5 mg/dL Normal 0.5 - 1.3 mg/dL [facility] Remisol GFR/1.73 sq M.predicted among blacks MDRD (S/P/Bld) [Vol rate/Area] mL/min/1.73 m2 Normal >=59mL/min/1.73 m2 [facility] Chem S GFR/1.73 sq M.predicted among non-blacks MDRD (S/P/Bld) [Vol rate/Area] mL/min/1.73 m2 Normal >=59mL/min/1.73 m2 [facility] Chem S Globulin (S) [Mass/Vol] 3.9 g/dL Normal 1.4 - 4.0 gm/dL [facility] Remisol Glucose [Mass/Vol] 123 mg/dL Normal 55 - 199 mg/dL [facility] Remisol Lipase [Catalytic activity/Vol] 68 U/L High 13 - 58 unit/L [facility] Remisol Potassium [Moles/Vol] 3.2 mmol/L Low 3.5 - 5.3 mmol/L [facility] Protein [Mass/Vol] 6.7 g/dL Normal 6.0 - 7.8 gm/dL F [facility] Remisol Sodium [Moles/Vol] 133 mmol/L Low 135 - 145 mmol/L [facility] Urea nitrogen [Mass/Vol] 6 mg/dL Normal 5 - 21 mg/dL [facility] Remisol Urea nitrogen/Creatinine [Mass ratio] 12 mg/mg Normal 10 - 20 [facility] Remisol CHEMISTRYOrdered By: Trista Root on 02-17-2022 Natriuretic peptide B (Bld) [Mass/Vol] 142 pg/mL High 5 - 80 pg/mL [facility] HemeManSS HEMATOLOGYOrdered By: SYSTEM SYSTEM on 02-17-2022 [...] PM) Normal Negative [facility] UA Auto SS Vandling.plasma/Lithi um.RBC (Bld) [Mass ratio] 0-3 /HPF Normal [...] PM) Invalid Interpretation Code 1.005 - 1.030 [facility] UA Auto SS UA Spec Desc Clean Catch (02/17/22 1:14 PM) Normal [facility] UA Auto SS Urobilinogen Qn (U) [id number] {Alexey'U}/dL Normal 0.0 - 1.0 EU/dL [facility] UA Auto SS WBC Auto Ql (U) Negative (02/17/22 1:14 PM) Normal Negative [facility] UA Auto SS WBC LM.HPF (Urine sed) [#/Area] 0-5 /HPF Normal 0-5/HPF [facility] UA Auto SS Basic metabolic 2000 panelon 02-11-2022 Anion gap [Moles/Vol] 10 mmol/L [facility] Calcium [Mass/Vol] 8.2 mg/dL Low 8.4 - 10.4 mg/dL [facility] Chloride [Moles/Vol] 103 mmol/L 97 - 111 mmol/L [facility] CO2 [Moles/Vol] 24 mmol/L 21 - 30 mmol/L [facility] Creatinine [Mass/Vol] 0.49 mg/dL Low 0.80 - 1.30 mg/dL [facility] Comment on above: Grossly icteric; may falsely decrease creatinine GFR/1.73 sq M.predicted MDRD (S/P/Bld) [Vol rate/Area] 136 mL/min/{1.73_m2} >=60 mL/min/1.73sqm [facility] Comment on above: 2020 CKD EPI [...] Inclusion of Race in Diagnosing Kidney Disease. [place] Journal of Kidney Diseases 202;79(2):268-88.e1. 2. N Engl J Med 2020 Vol. 385 Issue 19 Pages 4788-2661 Glucose [Mass/Vol] 105 mg/dL 68 - 110 mg/dL [facility] Interpretation and review of laboratory results Abnormal [facility] Potassium [Moles/Vol] 3.3 mmol/L 3.3 - 5.3 mmol/L [facility] Sodium [Moles/Vol] 134 mmol/L Low 135 - 148 mmol/L [facility] Urea nitrogen [Mass/Vol] 7 mg/dL Low 8 - 22 mg/dL [facility] CBC WITH DIFFERENTIALOrdered By: Ami Brock on 02-11-2022 Erythrocyte distribution width (RBC) [Ratio] 17.1 % High 11.5 - 14.5 % [facility] Hematocrit (Bld) [Volume fraction] 29.1 % Low 41.0 - 53.0 % [facility] Hemoglobin (Bld) [Mass/Vol] 10.0 g/dL Low 13.9 - 16.3 g/dL [facility] MCH (RBC) [Entitic mass] 37.3 pg High 26.0 - 34.0 pg [facility] MCHC (RBC) [Mass/Vol] 34.5 g/dL 32.0 - 35.9 g/dL [facility] MCV (RBC) [Entitic vol] 108 fL High 80 - 100 fL [facility] Monocyte distribution width Auto (Bld) [Entitic vol] [facility] Platelet mean volume (Bld) [Entitic vol] 7.2 fL Low 7.5 - 11.2 fL [facility] Platelets (Bld) [#/Vol] 81 10*3/uL Low 150 - 400 K/uL [facility] RBC (Bld) [#/Vol] 2.69 10*6/uL Low [facility] WBC (Bld) [#/Vol] 4.9 10*3/uL 4.5 - 11.5 K/uL [facility] HAPTOGLOBINon 02-11-2022 Haptoglobin [Mass/Vol] mg/dL Low 36 - 220 mg/dL [facility] Interpretation and review of laboratory results Abnormal [facility] LDHon 02-11-2022 LDH [Catalytic activity/Vol] 321 U/L High [facility] Laboratory - Chemistry and C hemistry - challengeon 02-11-2022 Albumin [Mass/Vol] 2.8 g/dL Low 3.4 - 5.1 g/dL [facility] ALP [Catalytic activity/Vol] 226 U/L [facility] ALT [Catalytic activity/Vol] 77 U/L [facility] AST [Catalytic activity/Vol] 88 U/L [facility] Bilirubin [Mass/Vol] 7.7 mg/dL High 0.1 - 1.5 mg/dL [facility] Bilirubin.direct [Mass/Vol] 1.70 mg/dL High 0.10 - 0.30 mg/dL [facility] Protein [Mass/Vol] 6.2 g/dL 6.2 - 8.3 g/dL [facility] MANUAL DIFF AND MORPHon 06-0 Anisocytosis Ql [...] Interpretation and review of laboratory results Abnormal [facility] RETICULOCYTE COUNTOrdered By : Kennedi Fuentes on 02-11-2022 Immature reticulocytes/Total reticulocytes (Bld) 0.45 % [facility] Interpretation and review of laboratory results Abnormal [facility] Reticulocytes (Bld) [#/Vol] 0.08 10*3/uL [facility] Reticulocytes/100 RBC (Bld) 3.0 % High 0.5 - 1.5 % [facility] Basic metabolic 2000 panelon 01-17-2022 Anion gap [Moles/Vol] 13 mmol/L [facility] Calcium [Mass/Vol] 8.2 mg/dL Low 8.4 - 10.4 mg/dL [facility] Chloride [Moles/Vol] 99 mmol/L 97 - 111 mmol/L [facility] CO2 [Moles/Vol] 23 mmol/L 21 - 30 mmol/L [facility] Creatinine [Mass/Vol] 0.42 mg/dL Low 0.80 - 1.30 mg/dL [facility] GFR/1.73 sq M.predicted MDRD (S/P/Bld) [Vol rate/Area] 142 mL/min/{1.73_m2} >=60 mL/min/1.73sqm [facility] Glucose [Mass/Vol] 84 mg/dL 68 - 110 mg/dL [facility] Potassium [Moles/Vol] 3.8 mmol/L 3.3 - 5.3 mmol/L [facility] Sodium [Moles/Vol] 131 mmol/L Low 135 - 148 mmol/L [facility] Urea nitrogen [Mass/Vol] 8 mg/dL 8 - 22 mg/dL [facility] CBC panel Auto (Bld)Ordered By: Isak Mitchell on 01-17-2022 Erythrocyte distribution width (RBC) [Ratio] 23.6 % High 11.5 - 14.5 % [facility] Hematocrit (Bld) [Volume fraction] 23.3 % Low 41.0 - 53.0 % [facility] Hemoglobin (Bld) [Mass/Vol] 8.0 g/dL Low 13.9 - 16.3 g/dL [facility] Interpretation and review of laboratory results Abnormal [facility] MCH (RBC) [Entitic mass] 38.1 pg High 26.0 - 34.0 pg [facility] MCHC (RBC) [Mass/Vol] 34.2 g/dL 32.0 - 35.9 g/dL [facility] MCV (RBC) [Entitic vol] 111 fL High 80 - 100 fL [facility] Platelet mean volume (Bld) [Entitic vol] 9.2 fL 7.5 - 11.2 fL [facility] Platelets (Bld) [#/Vol] 96 10*3/uL Low 150 - 400 K/uL [facility] RBC (Bld) [#/Vol] 2.09 10*6/uL Low [facility] WBC (Bld) [#/Vol] 9.5 10*3/uL 4.5 - 11.5 K/uL [facility] GLU[facility]SE, FINGERSTICK-IN OFFI CEon 01-17-2022 Glucose [Mass/Vol] 188 mg/dL High 68 - 110 mg/dL [facility] Interpretation and review of laboratory results Abnormal [facility] HAPTOGLOBINon 01-17-2022 Haptoglobin [Mass/Vol] mg/dL Low 36 - 220 mg/dL [facility] Interpretation and review of laboratory results Abnormal [facility] HEPATIC FUNCTION PANELon Albumin [Mass/Vol] 2.8 g/dL Low 3.4 - 5.1 g/dL [facility] ALP [Catalytic activity/Vol] 133 U/L [facility] ALT [Catalytic activity/Vol] 75 U/L High [facility] AST [Catalytic activity/Vol] 94 U/L High [facility] Bilirubin [Mass/Vol] 12.6 mg/dL High 0.1 - 1.5 mg/dL [facility] Bilirubin.direct [Mass/Vol] 2.40 mg/dL High 0.10 - 0.30 mg/dL [facility] Protein [Mass/Vol] 6.7 g/dL 6.2 - 8.3 g/dL [facility] LDHon 01-17-2022 LDH [Catalytic activity/Vol] 514 U/L High [facility] No Panel Informationon 01-17 Interpretation and review of laboratory results Abnormal [facility] PROTHROMBIN TIME AND INRon 0 01-17-2022 INR Coag (PPP) [Relative time] 1.97 {INR} High [facility] Interpretation and review of laboratory results Abnormal [facility] PT Coag (PPP) [Time] 22.1 s High [facility] RETICULOCYTE COUNTon 022 Immature reticulocytes/Total reticulocytes (Bld) 0.61 % High [facility] Interpretation and review of laboratory results Abnormal [facility] Reticulocytes (Bld) [#/Vol] 0.14 10*3/uL High [facility] Reticulocytes/100 RBC (Bld) 6.5 % High 0.5 - 1.5 % [facility] Basic metabolic 2000 panelon 01-16-2022 Anion gap [Moles/Vol] 14 mmol/L [facility] Calcium [Mass/Vol] 8.3 mg/dL Low 8.4 - 10.4 mg/dL [facility] Chloride [Moles/Vol] 98 mmol/L 97 - 111 mmol/L [facility] CO2 [Moles/Vol] 24 mmol/L 21 - 30 mmol/L [facility] Creatinine [Mass/Vol] 0.42 mg/dL Low 0.80 - 1.30 mg/dL [facility] GFR/1.73 sq M.predicted MDRD (S/P/Bld) [Vol rate/Area] 142 mL/min/{1.73_m2} >=60 mL/min/1.73sqm [facility] Glucose [Mass/Vol] 102 mg/dL 68 - 110 mg/dL [facility] Potassium [Moles/Vol] 3.7 mmol/L 3.3 - 5.3 mmol/L [facility] Sodium [Moles/Vol] 132 mmol/L Low 135 - 148 mmol/L [facility] Urea nitrogen [Mass/Vol] 9 mg/dL 8 - 22 mg/dL [facility] CBC panel Auto (Bld)on 01-16 Erythrocyte distribution width (RBC) [Ratio] 23.7 % High 11.5 - 14.5 % [facility] Hematocrit (Bld) [Volume fraction] 21.6 % Low 41.0 - 53.0 % [facility] Hemoglobin (Bld) [Mass/Vol] 7.4 g/dL Low 13.9 - 16.3 g/dL [facility] Interpretation and review of laboratory results Abnormal [facility] MCH (RBC) [Entitic mass] 38.6 pg High 26.0 - 34.0 pg [facility] MCHC (RBC) [Mass/Vol] 34.4 g/dL 32.0 - 35.9 g/dL [facility] MCV (RBC) [Entitic vol] 112 fL High 80 - 100 fL [facility] Platelet mean volume (Bld) [Entitic vol] 9.3 fL 7.5 - 11.2 fL [facility] Platelets (Bld) [#/Vol] 94 10*3/uL Low 150 - 400 K/uL [facility] RBC (Bld) [#/Vol] 1.92 10*6/uL Low [facility] WBC (Bld) [#/Vol] 9.2 10*3/uL 4.5 - 11.5 K/uL [facility], FINGERSTICK-IN OFFI CEon 01-16-2022 Glucose [Mass/Vol] 145 mg/dL High 68 - 110 mg/dL [facility] Interpretation [facility] review of [facility] results [facility] Gl[facility] [Mass/Vol] 247 mg/dL High 68 - 110 mg/dL [facility] Interpretation and review of laboratory results [facility] Glucose [Mass/Vol] 132 mg/dL High 68 - 110 mg/dL [facility] Interpretation and review of laboratory results Abnormal [facility] Glucose [Mass/Vol] 90 mg/dL 68 - 110 mg/dL [facility] Interpretation and review of laboratory results Normal [facility] HAPTOGLOBINon 01-16-2022 Haptoglobin [Mass/Vol] mg/dL Low 36 - 220 mg/dL [facility] Interpretation and review of laboratory results Abnormal [facility] HEPATIC FUNCTION PANELon Albumin [Mass/Vol] 2.7 g/dL Low 3.4 - 5.1 g/dL [facility] ALP [Catalytic activity/Vol] 124 U/L [facility] ALT [Catalytic activity/Vol] 69 U/L High [facility] AST [Catalytic activity/Vol] 93 U/L High [facility] Bilirubin [Mass/Vol] 12.7 mg/dL High 0.1 - 1.5 mg/dL [facility] Bilirubin.direct [Mass/Vol] 2.30 mg/dL High 0.10 - 0.30 mg/dL [facility] Protein [Mass/Vol] 6.3 g/dL 6.2 - 8.3 g/dL [facility] LDHon 01-16-2022 LDH [Catalytic activity/Vol] 476 U/L High [facility] No Panel Informationon 01-16 Interpretation and review of laboratory results Abnormal [facility] PROTHROMBIN TIME AND INRon 0 01-16-2022 INR Coag (PPP) [Relative time] 2.08 {INR} High [facility] Interpretation and review of laboratory results Abnormal [place] PT Coag (PPP) [Time] 23.3 s High [facility] Basic metabolic 2000 panelon 01-15-2022 Anion [...] 112 mg/dL High 68 - 110 mg/dL [facility] Potassium [Moles/Vol] 3.5 mmol/L 3.3 - 5.3 mmol/L [facility] Sodium [Moles/Vol] 132 mmol/L Low 135 - 148 mmol/L [facility] Urea nitrogen [Mass/Vol] 8 mg/dL 8 - 22 mg/dL [facility] CBC panel Auto (Bld)on 01-15 Erythrocyte distribution width (RBC) [Ratio] 24.4 % High 11.5 - 14.5 % [facility] Hematocrit (Bld) [Volume fraction] 21.1 % Low 41.0 - 53.0 % [facility] Hemoglobin (Bld) [Mass/Vol] 7.3 g/dL Low 13.9 - 16.3 g/dL [facility] Interpretation and review of laboratory results Abnormal [facility] MCH (RBC) [Entitic mass] 38.7 pg High 26.0 - 34.0 pg [facility] MCHC (RBC) [Mass/Vol] 34.4 g/dL 32.0 - 35.9 g/dL [facility] MCV (RBC) [Entitic vol] 113 fL High 80 - 100 fL [facility] Platelet mean volume (Bld) [Entitic vol] 9.8 fL 7.5 - 11.2 fL [facility] Platelets (Bld) [#/Vol] 74 10*3/uL Low 150 - 400 K/uL [facility] RBC (Bld) [#/Vol] 1.88 10*6/uL Low [facility] WBC (Bld) [#/Vol] 8.9 10*3/uL 4.5 - 11.5 K/uL [facility]SE, FINGERSTICK-IN OFFI CEon 01-15-2022 Glucose [Mass/Vol] 149 mg/dL High 68 - 110 mg/dL [facility] Interpretation and review of laboratory results Abnormal [facility] Glucose [Mass/Vol] 175 mg/dL High 68 - 110 mg/dL [facility] Interpretation and review of laboratory results Abnormal [facility] Glucose [Mass/Vol] 129 mg/dL High 68 - 110 mg/dL [facility] Interpretation and review of laboratory results Abnormal [facility] Glucose [Mass/Vol] 148 mg/dL High 68 - 110 mg/dL [facility] Interpretation and review of laboratory results Abnormal [facility] HAPTOGLOBINon 01-15-2022 Haptoglobin [Mass/Vol] mg/dL Low 36 - 220 mg/dL [facility] Interpretation and review of laboratory results Abnormal [facility] HEPATIC FUNCTION PANELon Albumin [Mass/Vol] 2.6 g/dL Low 3.4 - 5.1 g/dL [facility] ALP [Catalytic activity/Vol] 182 U/L [facility] ALT [Catalytic activity/Vol] 65 U/L [facility] AST [Catalytic activity/Vol] 104 U/L High [facility] Bilirubin [Mass/Vol] 10.8 mg/dL High 0.1 - 1.5 mg/dL [facility] Bilirubin.direct [Mass/Vol] 2.10 mg/dL High 0.10 - 0.30 mg/dL [facility] Protein [Mass/Vol] 6.5 g/dL 6.2 - 8.3 g/dL [facility] LDHon 01-15-2022 LDH [Catalytic activity/Vol] 481 U/L High [facility] No Panel Informationon 01-15 Interpretation and review of laboratory results Abnormal [facility] PROTHROMBIN TIME AND INRon 0 01-15-2022 INR Coag (PPP) [Relative time] 1.89 {INR} High [facility] Interpretation and review of laboratory results Abnormal [facility] PT Coag (PPP) [Time] 21.2 s [facility] Basic metabolic 2000 panelon 01-14-2022 Anion gap [...] 136 mg/dL High 68 - 110 mg/dL [facility] Potassium [Moles/Vol] 3.4 mmol/L 3.3 [...] 38.4 pg High 26.0 - 34.0 pg [facility] MCHC (RBC) [Mass/Vol] 34.4 g/dL 32.0 - 35.9 g/dL [facility] MCV (RBC) [Entitic vol] 112 fL High 80 - 100 fL [facility] Monocyte distribution width Auto (Bld) [Entitic vol] [facility] Nucleated RBC (Bld) [#/Vol] 0.15 10*3/uL [facility] Nucleated RBC/100 WBC (Bld) [Ratio] 2.0 % [facility] Platelet mean volume (Bld) [Entitic vol] 9.4 fL 7.5 - 11.2 fL [place] Platelets (Bld) [#/Vol] 65 10*3/uL Low 150 - 400 K/[facility]L [facility] RBC (Bld) [#/Vol] 1.91 10*6/uL Low [facility] WBC (Bld) [#/Vol] 7.3 10*3/uL 4.5 - 11.5 K/uL [facility] FIBRINOGENOrdered By: Elvia Humphrey on 01-14-2022 Fibrin+Fibrinogen fragments (S) [Mass/Vol] 122 mg/dL Low 200 - 500 mg/dL [facility] Interpretation and review of laboratory results Abnormal [facility] GLUCOSE, FINGERSTICK-IN OFFI CEon 01-14-2022 Glucose [Mass/Vol] 139 mg/dL High 68 - 110 mg/dL [facility] Interpretation and review of laboratory results Abnormal [facility] Glucose [Mass/Vol] 203 mg/dL High 68 - 110 mg/dL [facility] Interpretation and review of laboratory results Abnormal [facility] Glucose [Mass/Vol] 143 mg/dL High 68 - 110 mg/dL [facility] Interpretation and review of laboratory results Abnormal [facility] Glucose [Mass/Vol] 154 mg/dL High 68 - 110 mg/dL [facility] Interpretation and review of laboratory results Abnormal [facility] HAPTOGLOBINon 01-14-2022 Haptoglobin [Mass/Vol] mg/dL Low 36 - 220 mg/dL [facility] Interpretation and review of laboratory results Abnormal [facility] HEPATIC FUNCTION PANELon Albumin [Mass/Vol] 2.6 g/dL Low 3.4 - 5.1 g/dL [facility] ALP [Catalytic activity/Vol] 177 U/L [facility] ALT [Catalytic activity/Vol] 62 U/L High [facility] AST [Catalytic activity/Vol] 104 U/L High [facility] Bilirubin [Mass/Vol] 11.5 mg/dL High 0.1 - 1.5 mg/dL [facility] Bilirubin.direct [Mass/Vol] 2.20 mg/dL High 0.10 - 0.30 mg/dL [facility] Protein [Mass/Vol] 6.4 g/dL 6.2 - 8.3 g/dL [facility] LDHon 01-14-2022 LDH [Catalytic activity/Vol] 473 U/L High [facility] Laboratory - Microbiology an d Antimicrobial susceptibilityon 01-14-2022 Bacteria identified Cx Nom (Bld) No Growth [facility] MANUAL DIFF AND MORPHon 01-05 Anisocytosis Ql (Bld) Marked [facility] [place] cells LM Ql (Bld) Few [facility] Cells [...] PT Coag (PPP) [Time] 21.8 s High [facility] Basic metabolic 2000 panelon 01-13-2022 Anion gap [...] 130 mg/dL High 68 - 110 mg/dL [facility] Potassium [Moles/Vol] 3.4 mmol/L 3.3 - 5.3 mmol/L [facility] Sodium [Moles/Vol] 135 mmol/L 135 - 148 mmol/L [facility] Urea nitrogen [Mass/Vol] 6 mg/dL Low 8 - 22 mg/dL [facility] CBC WITH DIFFERENTIALon Erythrocyte distribution width (RBC) [Ratio] 24.4 % High 11.5 - 14.5 % [facility] Hematocrit (Bld) [Volume fraction] 19.3 % Critically low 41.0 - 53.0 % [facility] Hemoglobin (Bld) [Mass/Vol] 6.7 g/dL Critically low 13.9 - 16.3 g/dL [facility] MCH (RBC) [Entitic mass] 38.1 pg High 26.0 - 34.0 pg [facility] MCHC (RBC) [Mass/Vol] 34.7 g/dL 32.0 - 35.9 g/dL [facility] MCV (RBC) [Entitic vol] 110 fL High 80 - 100 fL [facility] Monocyte distribution width Auto (Bld) [Entitic vol] [facility] Nucleated RBC (Bld) [#/Vol] 0.22 10*3/uL [facility] Nucleated RBC/100 WBC (Bld) [Ratio] 3.0 % [facility] Platelet mean volume (Bld) [Entitic vol] 8.9 fL 7.5 - 11.2 fL [facility] Platelets (Bld) [#/Vol] 67 10*3/uL Low 150 - 400 K/uL [facility] RBC (Bld) [#/Vol] 1.76 10*6/uL Low [facility] WBC (Bld) [#/Vol] 7.3 10*3/uL 4.5 - 11.5 K/uL [facility] COPPERon 01-13-2022 Copper [Mass/Vol] 63 Low [facility] Interpretation and review of laboratory results Abnormal [facility] FACTOR VIII ASSAYOrdered By: Jozef Gibbons on 01-13-2022 Factor VIII Assay 356 % High 55 - 180 % [facility] Interpretation and review of laboratory results Abnormal [facility] GLUCOSE, FINGERSTICK-IN OFFI CEon 01-13-2022 Glucose [Mass/Vol] 185 mg/dL High 68 - 110 mg/dL [facility] Glucose [Mass/Vol] 226 mg/dL High 68 - 110 mg/dL [facility] Glucose [Mass/Vol] 152 mg/dL High 68 - 110 mg/dL [facility] Interpretation and review of laboratory results Abnormal [facility] Glucose [Mass/Vol] 140 mg/dL High 68 - 110 mg/dL [facility] Interpretation and review of laboratory results Abnormal [facility] HAPTOGLOBINon 01-13-2022 Haptoglobin [Mass/Vol] mg/dL Low 36 - 220 mg/dL [facility] Interpretation and review of laboratory results Abnormal [facility] HEPATIC FUNCTION PANELon Albumin [Mass/Vol] 2.6 g/dL Low 3.4 - 5.1 g/dL [facility] ALP [Catalytic activity/Vol] 169 U/L [facility] ALT [Catalytic activity/Vol] 63 U/L High [facility] AST [Catalytic activity/Vol] 124 U/L High [facility] Bilirubin [Mass/Vol] 11.4 mg/dL High 0.1 - 1.5 mg/dL [facility] Bilirubin.direct [Mass/Vol] 2.10 mg/dL High 0.10 - 0.30 mg/dL [facility] Protein [Mass/Vol] 6.2 g/dL 6.2 - 8.3 g/dL [facility] HEPATITIS C QUANT BY PCROrde red By: Gera Meza on 01-13-2022 HCV RNA panel ANGIE+probe Not detected Not Detected [facility] LDHon 01-13-2022 LDH [Catalytic activity/Vol] 497 U/L High [facility] MANUAL DIFF AND MORPHon Anisocytosis Ql (Bld) Marked [facility] Atypical Lymph # 0.15 K/uL [facility] Band form neutrophils/100 WBC (Bld) 8 % <=10 [facility] Bands # 0.58 K/uL High <0.01 [facility] [place] cells LM Ql (Bld) Few [facility] Cells Counted Total (Bld) [#] 100 {cells} [facility] Lymphocytes (Bld) [#/Vol] 1.10 10*3/uL 1.00 - 4.80 K/uL [facility] Lymphocytes/100 WBC (Bld) 15.0 % Low 24.0 - 44.0 % [facility] Macrocytes Ql (Bld) Moderate [facility] Metamyelocyte # 0.07 K/uL [facility] <0.01 [facility] Metamyel[facility]/100 WBC (Bld) 1 % High [...] Interpretation and review of laboratory results Abnormal [facility] Interpretation and review of laboratory results Abnormal [facility] Interpretation and review of laboratory results Abnormal [facility] PROTHROMBIN TIME AND INRon 0 01-13-2022 INR Coag (PPP) [Relative time] 2.05 {INR} High [facility] Interpretation and review of laboratory results Abnormal [facility] PT Coag (PPP) [Time] 23.0 s High [facility] Basic metabolic 2000 panelon 01-12-2022 Anion gap [...] 147 mg/dL High 68 - 110 mg/dL [facility] Interpretation and review of laboratory [...] [#/Vol] 8.0 10*3/uL 4.5 - 11.5 K/uL [facility] GLUCOSE, FINGERSTICK-IN OFFI CEon 01-12-2022 Glucose [Mass/Vol] 140 mg/dL High 68 - 110 mg/dL [facility] Interpretation and review of laboratory results Abnormal [facility] Glucose [Mass/Vol] 157 mg/dL High 68 - 110 mg/dL [facility] Interpretation and review of laboratory results Abnormal [facility] HAPTOGLOBINon 01-12-2022 Haptoglobin [Mass/Vol] mg/dL Low 36 - 220 mg/dL [facility] Interpretation and review of laboratory results Abnormal [facility] HEPATIC FUNCTION PANELon Albumin [Mass/Vol] 2.6 g/dL Low 3.4 - 5.1 g/dL [facility] ALP [Catalytic activity/Vol] 148 U/L [facility] ALT [Catalytic activity/Vol] 61 U/L [facility] AST [Catalytic activity/Vol] 131 U/L High [facility] Bilirubin [Mass/Vol] 11.1 mg/dL High 0.1 - 1.5 mg/dL [facility] Bilirubin.direct [Mass/Vol] 2.10 mg/dL High 0.10 - 0.30 mg/dL [facility] Protein [Mass/Vol] 6.4 g/dL 6.2 - 8.3 g/dL [facility] LDHon 01-12-2022 LDH [Catalytic activity/Vol] 458 U/L High [facility] MANUAL DIFF AND MORPHon Anisocytosis Ql (Bld) Moderate [facility] Band form neutrophils/100 WBC (Bld) 3 % <=10 [facility] Bands # 0.23 K/uL High <0.01 [facility] [place] cells LM Ql (Bld) Few [facility] Cells Counted Total (Bld) [#] 100 {cells} [facility] Lymphocytes (Bld) [#/Vol] 0.62 10*3/uL Low 1.00 - 4.80 K/uL [facility] Lymphocytes/100 WBC (Bld) 8.0 % Low 24.0 - 44.0 % [facility] Metamyelocyte # 0.16 K/uL [facility] <0.01 [facility] th Metamyelocytes/100 WBC (Bld) 2 % High [...] Slight [facility] Anisocytosis Ql (Bld) Marked [facility] [place] cells LM Ql (Bld) Few [facility] Cells [...] Coag (PPP) [Time] 23.8 s High Metr INeal [facility] ABO RH TYPEon 01-11-2022 [facility] Basic [...] 149 mg/dL High 68 - 110 mg/dL [facility] Potassium [Moles/Vol] 3.4 mmol/L 3.3 - 5.3 [...] 7.2 10*3/uL 4.5 - 11.5 K/uL [facility] CBC WITH DIFFERENTIALon Basophils (Bld) [#/Vol] 0.04 [...] g/dL Critically low 13.9 - 16.3 g/dL [facility] Interpretation and review of laboratory results Abnormal [...] 10*3/uL 4.5 - 11.5 K/uL [facility] GLUCOSE, FINGERSTICK-IN OFFI CEon 01-11-2022 Glucose [Mass/Vol] 167 mg/dL High 68 - 110 mg/dL [facility] Interpretation and review of laboratory results Abnormal [facility] HAPTOGLOBINon 01-11-2022 Haptoglobin [Mass/Vol] mg/dL Low 36 - 220 mg/dL [facility] Interpretation and review of laboratory results Abnormal [facility] HEPATIC FUNCTION PANELon Albumin [Mass/Vol] 2.6 g/dL Low 3.4 - 5.1 g/dL [facility] ALP [Catalytic activity/Vol] 95 U/L [facility] ALT [Catalytic activity/Vol] 57 U/L High [facility] AST [Catalytic activity/Vol] 143 U/L High [facility] Bilirubin [Mass/Vol] 11.4 mg/dL High 0.1 - 1.5 mg/dL [facility] Bilirubin.direct [Mass/Vol] 2.20 mg/dL High 0.10 - 0.30 mg/dL [facility] Protein [Mass/Vol] 5.7 g/dL Low 6.2 - 8.3 g/dL [facility] LDHon 01-11-2022 LDH [Catalytic activity/Vol] 428 U/L High [facility] Laboratory - Blood bankon ABO and Rh group Nom (Bld) Blood group A Rh(D) positive [facility] MAGNESIUMon 01-11-2022 Interpretation and review of laboratory results Normal [facility] Magnesium [Mass/Vol] 2.0 mg/dL 1.6 - 2.8 mg/dL [facility] MANUAL DIFF AND MORPHon Band form neutrophils/100 WBC (Bld) 3 % <=10 [facility] Bands # 0.22 K/uL High <0.01 [facility] [place] cells LM Ql (Bld) Few [facility] Cells Counted Total (Bld) [#] 100 {cells} [facility] Eosinophils (Bld) [#/Vol] 0.14 10*3/uL 0.00 - 0.70 K/uL [facility] Eosinophils/100 WBC (Bld) 2.0 % 0.1 - 4.0 % [facility] Lymphocytes (Bld) [#/Vol] 0.72 10*3/uL Low 1.00 - 4.80 K/uL [facility] Lymphocytes/100 WBC (Bld) 10.0 % Low 24.0 - 44.0 % [facility] Macrocytes Ql (Bld) Marked [facility] Monocytes [...] Few [facility] Anisocytosis Ql (Bld) Marked [facility] Robles cells [...] Coag (PPP) [Time] 24.2 s High [facility] TYPE AND SCREENon 01-11-2022 ABO and [...] 165 mg/dL High 68 - 110 mg/dL [facility] Interpretation and review of laboratory results Abnormal [...] 172 mg/dL High 68 - 110 mg/dL [facility] Potassium [Moles/Vol] 4.0 mmol/L 3.3 - 5.3 [...] [facility] CBC WITH DIFFERENTIALon Basophils (Bld) [#/Vol] 0.07 10*3/uL 0.00 - [...] vol] 8.6 fL 7.5 - 11.2 fL [facility] Platelets (Bld) [#/Vol] 58 10*3/uL Low 150 - 400 K/uL [facility] RBC (Bld) [#/Vol] 1.80 10*6/uL Low [facility] WBC (Bld) [#/Vol] 4.7 10*3/uL 4.5 - 11.5 K/uL [facility] CREATINE KINASEon 01-10-2022 CK [Catalytic activity/Vol] 1073 U/L High [facility] D-DIMEROrdered By: Gabriella french on 01-10-2022 Fibrin D-dimer DDU (PPP) [Mass/Vol] >5000 High <230 ng/mL DDU [facility] Interpretation and review of laboratory results Abnormal [facility] EKG 12 LEAD - PERFORMon Diagnosis [facility] P wave Atrium by EKG 96 BPM [facility] P wave axis 43 degrees [facility] P-R Interval 144 ms [facility] Q-T interval 326 ms [facility] Q-T interval corrected 411 ms [facility] QRS axis 49 degrees [facility] QRS duration 92 ms [facility] T wave axis 24 degrees [facility] HAPTOGLOBINon 01-10-2022 Haptoglobin [Mass/Vol] mg/dL Low 36 - 220 mg/dL [facility] Interpretation and review of laboratory results Abnormal [facility] HEPATIC FUNCTION PANELon Albumin [Mass/Vol] 2.7 g/dL Low 3.4 - 5.1 g/dL [facility] ALP [Catalytic activity/Vol] 87 U/L [facility] ALT [Catalytic activity/Vol] 54 U/L High [facility] AST [Catalytic activity/Vol] 147 U/L High [facility] Bilirubin [Mass/Vol] 11.1 mg/dL High 0.1 - 1.5 mg/dL [facility] Bilirubin.direct [Mass/Vol] 2.60 mg/dL High 0.10 - 0.30 mg/dL [facility] Protein [Mass/Vol] 6.0 g/dL Low 6.2 - 8.3 g/dL [facility] LDHOrdered By: Jarrod cruz on 01-10-2022 Interpretation and review of laboratory results Abnormal [facility] LDH [Catalytic activity/Vol] 378 U/L High [facility] Laboratory - Microbiology an d Antimicrobial susceptibilityon 01-10-2022 RSV RNA ANGIE+probe Ql (Unsp spec) Negative Negative [facility] Laboratory - Specimen inform ationon 01-10-2022 Specimen source Nom (Unsp spec) Negative Negative [facility] MAGNESIUMon 01-10-2022 Interpretation and review of laboratory results Normal [facility] Magnesium [Mass/Vol] 1.7 mg/dL 1.6 - 2.8 mg/dL [facility] MANUAL DIFF AND MORPHon Acanthocytes LM Ql (Bld) Few [facility] [place] cells LM Ql (Bld) Moderate [facility] Cells [...] (Bld) Few [facility] No Panel Informationon 01-10 [facility] Interpretation and review of laboratory results Abnormal [facility] No Panel InformationOrdered By: Meka Morales on 01-10-2022 [facility] PARTIAL THROMBOPLASTIN TIMEo n 01-10-2022 aPTT Coag (Bld) [Time] 29 s [facility] Interpretation and review of laboratory results Normal [facility] PROTHROMBIN TIME AND INRon 0 01-10-2022 INR Coag (PPP) [Relative time] 1.79 {INR} High [facility] Interpretation and review of laboratory results Abnormal [facility] PT Coag (PPP) [Time] 20.1 s High [facility] RED BLOOD CELL COMPONENTon 0 01-10-2022 BB Order Item Product status info to follow [facility] RESPIRATORY VIRUS PANEL, PCR on 05-06-2022 Adenovirus DNA ANGIE+probe Ql (Unsp spec) Negative Negative [facility] C. pneumoniae DNA ANGIE+probe Ql (Unsp spec) Negative Negative [facility] FLUAV H1 RNA ANGIE+probe Ql (Unsp spec) Negative Negative [facility] FLUAV H3 RNA ANGIE+probe Ql (Unsp spec) Negative Negative [facility] FLUAV RNA ANGIE+probe Ql (Unsp spec) Negative Negative [facility] FLUBV RNA ANGIE+probe Ql (Unsp spec) Negative Negative [facility] HCoV HKU1 RNA ANGIE+probe Ql (Unsp spec) Negative Negative [facility] HCoV NL63 RNA ANGIE+probe Ql (Unsp spec) Negative Negative [facility] hMPV RNA ANGIE+probe Ql (Unsp spec) Negative Negative [facility] Interpretation and review of laboratory results Normal [facility] M. pneumoniae DNA ANGIE+probe Ql (Unsp spec) Negative Negative [facility] Parainfluenza virus 1 RNA ANGIE+probe Ql (Unsp spec) Negative Negative [facility] Parainfluenza virus 2 RNA ANGIE+probe Ql (Unsp spec) Negative Negative [facility] Parainfluenza virus 3 RNA ANGIE+probe Ql (Unsp spec) Negative Negative [facility] Parainfluenza virus 4 RNA ANGIE+probe Ql (Unsp spec) Negative Negative [facility] Rhinovirus RNA ANGIE+probe Nom (Unsp spec) Negative Negative [facility] US HEP PORT SPLEN VEIN + DOP PLERon 01-10-2022 RADIOLOGY [facility] Radiology Study observation (narrative) [facility] US SPLEENon 01-10-2022 RADIOLOGY [facility] Radiology Study observation (narrative) [facility] SPLEENOrdered By: Enrique Basurto on 01-10-2022 [facility] Work Phone: AMMONIAon 01-09-2022 Ammonia (P) [Moles/Vol] 74 umol/L High 11 - 35 umol/L [facility] Interpretation and review of laboratory results Abnormal [facility] AUTOIMMUNE MULTIPLEX PANELon 01-09-2022 Interpretation and review of laboratory results Normal [facility] Nuclear Ab IA Ql (S) Negative Negative [facility] Basic metabolic 2000 panelon 01-09-2022 Anion gap [Moles/Vol] 10 mmol/L [facility] Calcium [Mass/Vol] 8.1 mg/dL Low 8.4 - 10.4 mg/dL [facility] Chloride [Moles/Vol] 100 mmol/L 97 - 111 [...] Interpretation and review of laboratory results Abnormal [facility] HEPATIC FUNCTION PANELon Albumin [Mass/Vol] 2.7 g/dL Low 3.4 - 5.1 g/dL [facility] ALP [Catalytic activity/Vol] 92 U/L [facility] ALT [Catalytic activity/Vol] 47 U/L High [facility] AST [Catalytic activity/Vol] 124 U/L High [facility] Bilirubin [Mass/Vol] 11.2 mg/dL High 0.1 - 1.5 mg/dL [facility] Bilirubin.direct [Mass/Vol] 2.50 mg/dL High 0.10 - 0.30 mg/dL [facility] Protein [Mass/Vol] 6.0 g/dL Low 6.2 - 8.3 g/dL [facility] HIV 1 and 2 Ab and HIV [...] Few [facility] Anisocytosis Ql (Bld) Marked [facility] [place] cells [...] (PPP) [Time] 21.8 s High [facility] RED BLOOD CELL COMPONENTon 0 01-09-2022 BB Order Item Product status info to follow [facility] THYROXINE (T4), FREEon 01-09 Free T4 [Mass/Vol] 0.88 ng/dL 0.45 - 1.80 ng/dL [facility] Interpretation and review of laboratory results Normal [facility] XR ABDOMEN 1 VIEW APon 01-09 RADIOLOGY [place] Radiology Study observation (narrative) [facility] XR ABDOMEN 1 VIEW APOrdered By: Ulysses Omalley on 01-09-2022 [facility] Work Phone: ACETAMINOPHENon 01-08-2022 Acetaminophen [Mass/Vol] ug/mL 10 - 20 ug/mL [facility] Interpretation and review of laboratory results Normal [facility] ANTIBODY ID ELUTED-LAB ONLYo n 01-08-2022 Blood group antibody screen Elution Ql Negative [facility] Basic metabolic 2000 panelon 01-08-2022 Anion gap [...] [Mass/Vol] 91 mg/dL 68 - 110 mg/dL [facility] Potassium [Moles/Vol] 3.7 mmol/L 3.3 - [...] 01-08-2022 CK [Catalytic activity/Vol] 777 U/L High [facility] DIRECT ANTIGLOBULIN TESTon 0 01-08-2022 Direct antiglobulin test.complement specific reagent Ql (RBC) Negative [facility] Direct antiglobulin test.IgG specific reagent (RBC) [Interp] Positive [facility] Direct antiglobulin test.poly specific reagent Ql (RBC) Positive [facility] EKG 12 LEAD - PERFORMon Diagnosis [place] P wave [facility] by EKG 76 BPM [facility] P wave axis 46 degrees [facility] P-R Interval 132 ms [facility] Q-T interval 422 ms [facility] Q-T interval corrected 474 ms [facility] QRS axis 44 degrees [facility] QRS duration 86 ms [facility] T wave axis 22 degrees [facility] FERRITINon 01-08-2022 Ferritin [Mass/Vol] 829.1 ng/mL High 11.5 - 3 00.0 ng/mL [facility] Interpretation and review of laboratory results Abnormal [facility] FOLIC ACIDon 01-08-2022 Folate [Mass/Vol] 13.9 ng/mL 5.9 - 24.7 ng/mL [facility] Interpretation and review of laboratory results Normal [facility] GLUCOSE, FINGERSTICK-IN OFFI CEon 01-08-2022 Glucose [Mass/Vol] 94 mg/dL 68 - 110 mg/dL [facility] Interpretation and review of laboratory results Normal [facility] HAPTOGLOBINon 01-08-2022 Haptoglobin [Mass/Vol] mg/dL Low 36 - 220 mg/dL [facility] Interpretation and review of laboratory results Abnormal [facility] HCV Ab IA Qn (S)on HCV Ab Ql (S) Non-Reactive Nonreactive [facility] Interpretation and review of laboratory results Normal [facility] HEPATIC FUNCTION PANELon Albumin [Mass/Vol] 2.9 g/dL Low 3.4 - 5.1 g/dL [facility] ALP [Catalytic activity/Vol] 121 U/L [facility] ALT [Catalytic activity/Vol] 50 U/L High [facility] AST [Catalytic activity/Vol] 129 U/L High [facility] Bilirubin [Mass/Vol] 11.1 mg/dL High 0.1 - 1.5 mg/dL [facility] Bilirubin.direct [Mass/Vol] 2.40 mg/dL High 0.10 - 0.30 mg/dL [facility] Protein [Mass/Vol] 6.4 g/dL 6.2 - 8.3 g/dL [facility] HEPATITIS A IGM ANTIBODYon 0 01-08-2022 HAV IgM IA Ql Non-Reactive Nonreactive [facility] Interpretation and review of laboratory results Normal [facility] HEPATITIS A TOTAL ANTIBODYon 01-08-2022 HAV Ab IA Ql (S) Reactive Abnormal Nonreactive [facility] Interpretation and review of laboratory results Abnormal [facility] HEPATITIS B CORE ANTIBODYon 01-08-2022 HBV core Ab Ql (S) Non-Reactive Nonreactive [facility] Interpretation and review of laboratory results Normal [facility] HEPATITIS B SURFACE ANTIBODY on 01-08-2022 HBV surface Ab IA Qn m[IU]/mL mIU/mL [facility] HEPATITIS B SURFACE ANTIGENo n 01-08-2022 HBV surface Ag Ql (S) Non-Reactive Non-Reactive [facility] Interpretation and review of laboratory results Normal [facility] IRON AND TIBCon 01-08-2022 Interpretation and review of laboratory results Abnormal [facility] Iron [Mass/Vol] 145 ug/dL 45 - 160 ug/dL [facility] [place] Iron binding capacity [Mass/Vol] 214 ug/mL Low 250 - 410 ug/mL [facility] Iron saturation [Mass fraction] 68 % High 20 - 55 % [facility] Transferrin [Mass/Vol] 153 mg/dL Low 210 - 375 mg/dL [facility] LACTIC ACIDOrdered By: Arnol kowalski on 01-08-2022 Interpretation and review of laboratory results Normal [facility] Lactate [Moles/Vol] 1.1 mmol/L 0.5 - 2.0 mmol/L [facility] LDHOrdered By: Yaritza staton on 01-08-2022 Interpretation and review of laboratory results Abnormal [facility] LDH [Catalytic activity/Vol] 369 U/L High [facility] MAGNESIUMon 01-08-2022 Interpretation and review of laboratory results Normal [facility] Magnesium [Mass/Vol] 1.7 mg/dL 1.6 - 2.8 mg/dL [facility] MANUAL DIFF AND MORPHon Anisocytosis Ql [...] Panel InformationOrdered By: Fiorella Cochran on 01-08-2022 [facility] No Panel Informationon 01-08 Interpretation and review of laboratory results Abnormal [facility] [place] RADIOLOGY [facility] No Panel InformationOrdered By: Rafy Carr on 01-08-2022 [facility] No Panel InformationOrdered By: Crow Werner on 01-08-2022 [facility] Work Phone: PROTHROMBIN TIME AND INRon 0 01-08-2022 INR Coag (PPP) [Relative time] 1.78 {INR} High [facility] Interpretation and review of laboratory results Abnormal [facility] PT Coag (PPP) [Time] 20.0 s High [facility] RETICULOCYTE COUNTOrdered By : Deborah Che on 01-08-2022 Immature reticulocytes/Total reticulocytes (Bld) 0.56 % High [facility] Interpretation and review of laboratory results Abnormal [facility] Reticulocytes (Bld) [#/Vol] 0.10 10*3/uL High [facility] Reticulocytes/100 RBC (Bld) 5.2 % High 0.5 - 1.5 % [facility] TSHon 01-08-2022 Interpretation and review of laboratory results Abnormal [facility] TSH Qn 6.627 m[IU]/L High [facility] US ASCITES SURVEY 4 QUADRANT Son 01-08-2022 RADIOLOGY [facility] Radiology Study observation (narrative) [facility] US ASCITES SURVEY 4 QUADRANT SOrdered By: Lisa Rizzo on 01-08-2022 [facility] Work Phone: US LIVER/GALL BLADDER/PANCRE ASon 01-08-2022 [facility]OLOGY [facility] Rad[facility] Study observation (narrative) [facility] VITAMIN B12 (CYANOCOBALAMIN) on 01-08-2022 Cobalamin (Vitamin B12) [Moles/Vol] 1299 pg/mL >300 [facility] Interpretation and review of laboratory results Normal [facility] XR ELBOW LEFT MINIMUM 3 VIEW Son 01-08-2022 Radiology Study observation (narrative) [place] XR HUMERUS LEFTon 01-08-2022 Radiology Study observation (narrative) [facility] XR ORBITSon 01-08-2022 RADIOLOGY [facility] Radiology Study observation (narrative) [place] XR ORBITSOrdered By: Philipp Salgado on 01-08-2022 [facility] Work Phone: BLOOD BANKOrdered By: Destiny [...] activity/Vol] 782 [iU]/d Invalid Interpretation Code 14 261 Int._Unit/L [facility] Remisol Comment on above: [...] 8.3 mg/dL Low 8.9 - 11.1 mg/dL [facility] Chloride [Moles/Vol] 97 mmol/L Low 101 - 111 mmol/ L [facility] CO2 [Moles/Vol] 23 mmol/L Normal 21 [...] [Vol rate/Area] mL/min/1.73 m2 Normal >=59mL/min/1.73 m2 [facility] Chem S GFR/1.73 sq M.predicted among non-blacks MDRD (S/P/Bld) [Vol rate/Area] mL/min/1.73 m2 Normal >=59mL/min/1.73 m2 [facility] Chem S Globulin (S) [Mass/Vol] 3.6 g/dL Normal 1.4 - 4.0 gm/dL [facility] Glucose [Mass/Vol] 116 mg/dL Normal 55 - 199 mg/dL [facility] Lipase [Catalytic activity/Vol] 59 U/L High 13 - 58 unit/L [facility] Potassium [Moles/Vol] 3.8 mmol/L Normal 3.5 - 5.3 mmol/L [facility] Protein [Mass/Vol] 6.8 g/dL Normal 6.0 - 7.8 gm/dL [facility] Sodium [Moles/Vol] 132 mmol/L Low 135 - 145 mmol/L [facility] Troponin I.cardiac [Mass/Vol] 18.40 pg/mL Normal 15.90 - 38.40 pg/mL [facility] Urea nitrogen [Mass/Vol] 7 mg/dL Normal 5 - 21 mg/dL [facility] Urea nitrogen/Creatinine [Mass ratio] Unable to Calculate Invalid Interpretation Code 10 - 20 [facility] COAGULATIONOrdered By: Mary Kay Christine on [...] - 11.0 E9/L [facility] HemeAutoSS HEMATOLOGYOrdered By: [employer] on 01-07-2022 Basophils/100 WBC (Bld) 1.1 [...] increase of schistocytes. No hypersegmented granulocytes seen.D64.9CPT [id number] Invalid Interpretation Code [facility] HemeManSS URINALYSISOrdered By: [...] Interpretation Code Negative [facility] UA Auto SS [place]and[place].plasma/Lithi um.RBC (Bld) [Mass ratio] 0-3 /HPF Normal [...] [facility] UA Auto SS Urobilinogen Qn (U) [id number] {Alexey'U}/dL Invalid Interpretation Code 0.0 - 1.0 EU/dL [facility] UA Auto SS WBC Auto Ql (U) Negative (01/07/22 12:30 PM) Normal Negative [facility] UA Auto SS WBC LM.HPF (Urine sed) [#/Area] 0-5 /HPF Normal 0-5/HPF [facility] UA Auto SS Vital Signs Date Time Vital Sign Value Performing Clinician Facility 09-21-2023 14:24-0500 Blood Pressure Location Keith Patricia [facility] 09-21-2023 14:24-0500 Body temperature 98.06 [degF] Keith Patricia [facility] 09-21-2023 14:24-0500 Diastolic blood pressure 78 mm[Hg] Keith Crainpsey [facility] 09-21-2023 14:24-0500 Heart rate 73 /min Keith Crainpsey [facility] 09-21-2023 14:24-0500 Respiratory rate 18 /min Keith Crainpsey [facility] 09-21-2023 14:24-0500 SaO2% (BldA) [Mass fraction] 99 % Keith Patricia [facility] 09-21-2023 14:24-0500 Systolic blood pressure 156 mm[Hg] Keith Crainpsey [facility] 09-01-2023 12:16-0500 Diastolic blood pressure 80 mm[Hg] Martin Sarmini [facility] 09-01-2023 12:16-0500 Mean blood pressure 100 mm[Hg] Martin Sarmini [facility] 09-01-2023 12:16-0500 Systolic blood pressure 140 mm[Hg] Martin Sarmini [facility] 09-01-2023 12:12-0500 Blood Pressure Location Martin Sarmini [facility] 09-01-2023 12:12-0500 Diastolic blood pressure 82 mm[Hg] Martin Sarmini [facility] 09-01-2023 12:12-0500 Heart rate 80 /min Martin Sarmini [facility] 09-01-2023 12:12-0500 Respiratory rate 18 /min Martin Sarmini [facility] 09-01-2023 12:12-0500 Systolic blood pressure 142 mm[Hg] Martin Sarmini [facility] 08-26-2023 09:34-0500 Blood Pressure Location Lisa Lopez [facility] 08-26-2023 09:34-0500 Diastolic blood pressure 88 mm[Hg] Lisa Lopez [facility] 08-26-2023 09:34-0500 Heart rate 71 /min Lisa Lopez [facility] 08-26-2023 09:34-0500 Respiratory rate 18 /min Lisa Lopez [facility] 08-26-2023 09:34-0500 SaO2% (BldA) [Mass fraction] 100 % Lisa Lopez [facility] 08-26-2023 09:34-0500 Systolic blood pressure 150 mm[Hg] Lisa Lopez [facility] 07-24-2023 07:37-0500 Blood Pressure Location Lisa Lopez [facility] 07-24-2023 07:37-0500 Diastolic blood pressure 76 mm[Hg] Lisa Lopez [facility] 07-24-2023 07:37-0500 Heart rate 79 /min Lisa Lopez [facility] 07-24-2023 07:37-0500 Respiratory rate 16 /min Lisa Lopez [facility] 07-24-2023 07:37-0500 SaO2% (BldA) [Mass fraction] 100 % Lisa Lopez [facility] 07-24-2023 07:37-0500 Systolic blood pressure 132 mm[Hg] Lisa Lopez [facility] 06-19-2023 12:23-0400 Body temperature 97.88 [degF] Teddy Luna [facility] 06-19-2023 12:23-0400 Diastolic blood pressure 105 mm[Hg] Teddy Luna [facility] 06-19-2023 12:23-0400 Heart rate 70 /min Teddy Luna [facility] 06-19-2023 12:23-0400 Respiratory rate 18 /min Teddy Luna [facility] 06-19-2023 12:23-0400 SaO2% (BldA) [Mass fraction] 98 % Teddy Luna [facility] 06-19-2023 12:23-0400 Systolic blood pressure 165 mm[Hg] Teddy Luna [facility] 04-24-2023 11:00-0400 Body height 170.18 cm Jarrod Eddy Other [facility] Other 04-24-2023 11:00-0400 Body mass index (BMI) [Ratio] 26.94 kg/m2 Jarrod Dillardrenancy Other [facility] Other 04-24-2023 11:00-0400 Body temperature 97.4 [degF] Jarrod Dillardrer Other [facility] Other 04-24-2023 11:00-0400 Body weight 78.02 kg Jarrod Dillardrenancy Other [facility] Other 04-24-2023 11:00-0400 Diastolic blood pressure 70 mm[Hg] Jarrod Nunu Other [facility] Other 04-24-2023 11:00-0400 SaO2% (BldA) [Mass fraction] 99 % Jarrod Nunu Other [facility] Other 04-24-2023 11:00-0400 Systolic blood pressure 138 mm[Hg] Jarrod Nishantrer Other [facility] Other 04-21-2023 09:38-0400 Body height 170.2 cm Tanvir Black MD Work Phone: [facility] 04-21-2023 09:38-0400 Body mass index (BMI) [Ratio] 27.08 kg/m2 Tanvir Black MD Work Phone: [facility] 04-21-2023 09:38-0400 Body temperature 97.7 [degF] Tanvir Black MD Work Phone: [facility] 04-21-2023 09:38-0400 Body weight 78.43 kg Tanvir Black MD Work Phone: [facility] 04-21-2023 09:38-0400 Diastolic blood pressure 67 mm[Hg] Tanvir Black MD Work Phone: [facility] 04-21-2023 09:38-0400 Heart rate 79 /min Tanvir Black MD Work Phone: [facility] 04-21-2023 09:38-0400 Respiratory rate 20 /min Tanvir Black MD Work Phone: [facility] 04-21-2023 09:38-0400 SaO2% (BldA) [Mass fraction] 100 % Tanvir Black MD Work Phone: [facility] 04-21-2023 09:38-0400 Systolic blood pressure 136 mm[Hg] Tanvir Black MD Work Phone: [facility] 03-22-2023 21:05-0400 Diastolic blood pressure 80 mm[Hg] Martin Mary Ann [facility] 03-22-2023 21:05-0400 Heart rate 88 /min Martin Mary Ann [facility] 03-22-2023 21:05-0400 Hourly Rounding Martin Mary Ann [facility] 03-22-2023 21:05-0400 Promise to Return Martin Mary Ann [facility] 03-22-2023 21:05-0400 Respiratory rate 18 /min Martin Mary Ann [facility] 03-22-2023 21:05-0400 SaO2% (BldA) [Mass fraction] 100 % Martin Mary Ann [facility] 03-22-2023 21:05-0400 Systolic blood pressure 148 mm[Hg] Martin Mary Ann [facility] 03-22-2023 20:07-0400 Body temperature 97.7 [degF] Martin Mary Ann [facility] 03-22-2023 20:07-0400 Diastolic blood pressure 84 mm[Hg] Martin Mary Ann [facility] 03-22-2023 20:07-0400 Heart rate 92 /min Martin Mary Ann [facility] 03-22-2023 20:07-0400 Respiratory rate 18 /min Martin Mary Ann [facility] 03-22-2023 20:07-0400 SaO2% (BldA) [Mass fraction] 100 % Martin Mary Ann [facility] 03-22-2023 20:07-0400 Systolic blood pressure 151 mm[Hg] Martin Mary Ann [facility] 02-18-2023 09:11-0400 Diastolic blood pressure 70 mm[Hg] Brent Sanches [facility] 02-18-2023 09:11-0400 Heart rate 82 /min Brent Myron [facility] 02-18-2023 09:11-0400 Mean blood pressure 91 mm[Hg] Brent Myron [facility] 02-18-2023 09:11-0400 Respiratory rate 16 /min Brent Myron [facility] 02-18-2023 09:11-0400 SaO2% (BldA) [Mass fraction] 98 % Brent Myron [facility] 02-18-2023 09:11-0400 Systolic blood pressure 132 mm[Hg] Brent Myron [facility] 02-18-2023 07:45-0400 Body temperature 98.96 [degF] Brent Myron [facility] 02-18-2023 07:45-0400 Diastolic blood pressure 80 mm[Hg] Brent Sanches [facility] 02-18-2023 07:45-0400 Heart rate 95 /min Brent Sanches [facility] 02-18-2023 07:45-0400 Respiratory rate 16 /min Brent Sanches [facility] 02-18-2023 07:45-0400 SaO2% (BldA) [Mass fraction] 100 % Brent Sanches [facility] 02-18-2023 07:45-0400 Systolic blood pressure 153 mm[Hg] Brent Sanches [facility] 01-12-2023 09:49-0400 Body height 170.2 cm [facility] 01-12-2023 09:49-0400 Body mass index (BMI) [Ratio] 27.28 kg/m2 Tanvir Black MD Work Phone: [facility] 01-12-2023 09:49-0400 Body temperature 96.6 [degF] Tanvir Black MD Work Phone: [facility] 01-12-2023 09:49-0400 Body weight 79.02 kg Tanvir Black MD Work Phone: [facility] 01-12-2023 09:49-0400 Diastolic blood pressure 56 mm[Hg] Tanvir Black MD Work Phone: [facility] 01-12-2023 09:49-0400 Heart rate 79 /min Tanvir Black MD Work Phone: [facility] 01-12-2023 09:49-0400 Respiratory rate 20 /min Tanvir Black MD Work Phone: [facility] 01-12-2023 09:49-0400 SaO2% (BldA) [Mass fraction] 100 % Tanvir Black MD Work Phone: [facility] 01-12-2023 09:49-0400 Systolic blood pressure 121 mm[Hg] Tan[facility] Black [facility] 01-12-2023 08:58-0400 Body mass index (BMI) [Ratio] 27.41 kg/m2 Marcello Ibanez MD Work Phone: [facility] 01-12-2023 08:58-0400 Body temperature 96.6 [degF] Marcello Ibanez MD Work Phone: [facility] 01-12-2023 08:58-0400 Body weight 79.38 kg [facility]cello [facility]banez [facility] 01-12-2023 08:58-0400 Diastolic blood pressure 56 mm[Hg] Marcello [facility]banez MD [facility] 01-12-2023 08:58-0400 Heart rate 79 /min Marcello Ibanez MD Work Phone: [facility] 01-12-2023 08:58-0400 Systolic blood pressure 121 mm[Hg] Marcello [facility]banez MD [facility] 12-16-2022 09:49-0400 Body height 170.2 cm Dejuan Lechuga MD [facility] 12-16-2022 09:49-0400 Body mass index (BMI) [Ratio] 28.05 kg/m2 Dejuan Lechuga MD Work Phone: [facility] 12-16-2022 09:49-0400 Body weight 81.24 kg Dejuan Lechuga MD Work Phone: [facility] 12-16-2022 09:49-0400 Diastolic blood pressure 57 mm[Hg] Dejuan Lechuga MD Work Phone: [facility] 12-16-2022 09:49-0400 Heart rate 85 /min Dejuan Lechuga MD Work Phone: [facility] 12-16-2022 09:49-0400 SaO2% (BldA) [Mass fraction] 100 % Dejuan [facility]uga MD [facility] 12-16-2022 09:49-0400 Systolic blood pressure 113 mm[Hg] Dejuan [facility]uga MD [facility] 11-13-2022 11:23-0500 Body mass index (BMI) [Ratio] 26.63 kg/m2 Tanvir Black MD Work Phone: [facility] 11-13-2022 11:23-0500 Body temperature 98.6 [degF] Tanvir Black MD Work Phone: [facility] 11-13-2022 11:23-0500 Body weight 77.11 kg Tanvir Black MD Work Phone: [facility] 11-13-2022 11:23-0500 Diastolic blood pressure 62 mm[Hg] Tanvir Black MD Work Phone: [facility] 11-13-2022 11:23-0500 Heart rate 86 /min Tanvir Black MD Work Phone: [facility] 11-13-2022 11:23-0500 Respiratory rate 14 /min Tanvir Black MD [facility] 11-13-2022 11:23-0500 SaO2% (BldA) [Mass fraction] 100 % Tanvir Black MD Work Phone: [facility] 11-13-2022 11:23-0500 Systolic blood pressure 153 mm[Hg] Tanvir Black MD Work Phone: [facility] 10-27-2022 09:49-0500 Body mass index (BMI) [Ratio] 26.59 kg/m2 Marcello Ibanez MD Work Phone: [facility] 10-27-2022 09:49-0500 Body temperature 97.5 [degF] Marcello Ibanez MD Work Phone: [facility] 10-27-2022 09:49-0500 Body weight 77.02 kg Marcello Ibanez MD Work Phone: [facility] 10-27-2022 09:49-0500 Diastolic blood pressure 55 mm[Hg] Marcello Ibanez MD Work Phone: [facility] 10-27-2022 09:49-0500 Heart rate 84 /min Marcello Ibanez MD Work Phone: [facility] 10-27-2022 09:49-0500 SaO2% (BldA) [Mass fraction] 100 % Marcello Ibanez MD Work Phone: [facility] 10-27-2022 09:49-0500 Systolic blood pressure 128 mm[Hg] Marcello Ibanez MD Work Phone: [facility] 08-25-2022 13:44-0500 Body mass index (BMI) [Ratio] 26.78 kg/m2 Theo Burks MD Work Phone: [facility] 08-25-2022 13:44-0500 Body temperature 98.49 [degF] Theo Burks MD Work Phone: [facility] 08-25-2022 13:44-0500 Body weight 77.56 kg Theo Burks MD Work Phone: [facility] 08-25-2022 13:44-0500 Diastolic blood pressure 65 mm[Hg] Theo Burks MD Work Phone: [facility] 08-25-2022 13:44-0500 Heart rate 69 /min Theo Burks MD Work Phone: [facility] 08-25-2022 13:44-0500 Respiratory rate 18 /min Theo Burks MD Work Phone: [facility] 08-25-2022 13:44-0500 SaO2% (BldA) [Mass fraction] 99 % Theo Burks MD Work Phone: [facility] 08-25-2022 13:44-0500 Systolic blood pressure 132 mm[Hg] Theo Burks MD Work Phone: [facility] 08-25-2022 10:42-0500 Body mass index (BMI) [Ratio] 26.94 kg/m2 Abbey Alvarez MD Work Phone: [facility] 08-25-2022 10:42-0500 Body temperature 98.2 [degF] Abbey Alvarez MD Work Phone: [facility] 08-25-2022 10:42-0500 Body weight 78.02 kg Abbey Alvarez MD Work Phone: [facility] 08-25-2022 10:42-0500 Diastolic blood pressure 50 mm[Hg] Abbey Alvarez MD Work Phone: [facility] 08-25-2022 10:42-0500 Heart rate 82 /min Abbey Alvarez MD Work Phone: [facility] 08-25-2022 10:42-0500 Systolic blood pressure 129 mm[Hg] Abbey Alvarez MD Work Phone: [facility] 08-15-2022 15:50-0500 Heart rate 78 /min Ann-Marie Bonner MD Work Phone: [facility] 08-15-2022 15:50-0500 Respiratory rate 14 /min Ann-Marie Bonner MD Work Phone: [facility] 08-15-2022 15:50-0500 SaO2% (BldA) [Mass fraction] 98 % Ann-Marie Bonner MD Work Phone: [facility] 08-15-2022 12:51-0500 Body mass index (BMI) [Ratio] 20.52 kg/m2 Ann-Marie Bonner MD Work Phone: [facility] 08-15-2022 12:51-0500 Body temperature 98.49 [degF] Ann-Marie Bonner MD Work Phone: [facility] 08-15-2022 12:51-0500 Body weight 59.42 kg Ann-Marie Bonner MD Work Phone: [facility] 08-15-2022 12:51-0500 Diastolic blood pressure 70 mm[Hg] Ann-Marie Bonner MD Work Phone: [facility] 08-15-2022 12:51-0500 Systolic blood pressure 147 mm[Hg] Ann-Marie Bonner MD Work Phone: [facility] 08-15-2022 10:16-0500 Body mass index (BMI) [Ratio] 26.72 kg/m2 Nenita Franco MD Work Phone: [facility] 08-15-2022 10:16-0500 Body temperature 98.6 [degF] Nenita Franco MD Work Phone: [facility] 08-15-2022 10:16-0500 Body weight 77.38 kg Nenita Franco MD Work Phone: [facility] 08-15-2022 10:16-0500 Diastolic blood pressure 56 mm[Hg] Nenita Franco MD Work Phone: [facility] 08-15-2022 10:16-0500 Heart rate 85 /min Nenita Franco MD Work Phone: [facility] 08-15-2022 10:16-0500 Respiratory rate 18 /min Nenita Franco MD Work Phone: [facility] 08-15-2022 10:16-0500 SaO2% (BldA) [Mass fraction] 100 % Nenita Franco MD Work Phone: [facility] 08-15-2022 10:16-0500 Systolic blood pressure 136 mm[Hg] Nenita Franco MD Work Phone: [facility] 08-14-2022 13:12-0500 Diastolic blood pressure 60 mm[Hg] Saskia Madison APRN-PUBLIC POLICY MANAGER [facility] Phone: [facility] 08-14-2022 13:12-0500 Systolic blood pressure 128 mm[Hg] Saskia Madison APRN-PUBLIC POLICY MANAGER Work Phone: [facility] 08-14-2022 13:10-0500 Body mass index (BMI) [Ratio] 27.1 kg/m2 Saskia Madison APRN-PUBLIC POLICY MANAGER [facility] Phone: [facility] 08-14-2022 13:10-0500 Body temperature 98.2 [degF] Saskia Madison APRN-PUBLIC POLICY MANAGER [facility] Phone[facility] 08-14-2022 13:10-0500 Body weight 78.47 kg Saskia Madison APRN-PUBLIC POLICY MANAGER Work Phone: [facility] 08-14-2022 13:10-0500 Heart rate 84 /min Saskia Zepedadeena LIBAN-PUBLIC POLICY MANAGER [facility] Phone: [facility] 08-14-2022 11:51-0500 Body height 170.2 cm Tanvir Black MD Work Phone: [facility] 08-14-2022 11:51-0500 Body mass index (BMI) [Ratio] 26.78 kg/m2 Tanvir Black MD Work Phone: [facility] 08-14-2022 11:51-0500 Body temperature 99.19 [degF] Tanvir Black MD Work Phone: [facility] 08-14-2022 11:51-0500 Body weight 77.56 kg Tanvir Black MD Work Phone: [facility] 08-14-2022 11:51-0500 Diastolic blood pressure 60 mm[Hg] Tanvir Black MD Work Phone: [facility] 08-14-2022 11:51-0500 Heart rate 90 /min Tanvir Black MD Work Phone: [facility] 08-14-2022 11:51-0500 Respiratory rate 14 /min Tanvir Black MD Work Phone: [facility] 08-14-2022 11:51-0500 SaO2% (BldA) [Mass fraction] 100 % Tanvir Black MD Work Phone: [facility] 08-14-2022 11:51-0500 Systolic blood pressure 141 mm[Hg] Tanvir Black MD Work Phone: [facility] 05-06-2022 10:03-0400 Body height 170.2 cm Tanvir Black MD Work Phone: [facility] 05-06-2022 10:03-0400 Body mass index (BMI) [Ratio] 26.78 kg/m2 Tanvir Black MD Work Phone: [facility] 05-06-2022 10:03-0400 Body temperature 98.4 [degF] Tanvir Black MD Work Phone: [facility] 05-06-2022 10:03-0400 Body weight 77.56 kg Tanvir Black MD Work Phone: [facility] 05-06-2022 10:03-0400 Diastolic blood pressure 70 mm[Hg] Tanvir Black MD Work Phone: [facility] 05-06-2022 10:03-0400 Heart rate 75 /min Tanvir Black MD Work Phone: [facility] 05-06-2022 10:03-0400 Respiratory rate 16 /min Tanvir Black MD Work Phone: [facility] 05-06-2022 10:03-0400 SaO2% (BldA) [Mass fraction] 100 % Tanvir Black MD Work Phone: [facility] 05-06-2022 10:03-0400 Systolic blood pressure 137 mm[Hg] Tanvir Black MD Work Phone: [facility] 03-13-2022 11:39-0400 Body mass index (BMI) [Ratio] 25.84 kg/m2 Tanvir Black MD Work Phone: [facility] 03-13-2022 11:39-0400 Body temperature 98.49 [degF] Tanvir Black MD Work Phone: [facility] 03-13-2022 11:39-0400 Body weight 74.84 kg Tanvir Black MD [facility] 03-13-2022 11:39-0400 Diastolic blood pressure 69 mm[Hg] Tanvir Black MD Work Phone: [facility] 03-13-2022 11:39-0400 Heart rate 85 /min Tanvir Black MD [facility] 03-13-2022 11:39-0400 Respiratory rate 14 /min Tanvir Black MD [facility] 03-13-2022 11:39-0400 SaO2% (BldA) [Mass fraction] 100 % Tanvir Black MD [facility] 03-13-2022 11:39-0400 Systolic blood pressure 137 mm[Hg] Tanvir Black MD Work Phone: [facility] 02-17-2022 16:07-0400 Diastolic blood pressure 76 mm[Hg] [facility] 02-17-2022 16:07-0400 Heart rate 84 /min [facility] 02-17-2022 16:07-0400 Mean blood pressure 94 mm[Hg] [facility] 02-17-2022 16:07-0400 Respiratory rate 18 /min [facility] 02-17-2022 16:07-0400 SaO2% (BldA) [Mass fraction] 98 % [facility] 02-17-2022 16:07-0400 Systolic blood pressure 129 mm[Hg] [facility] 02-17-2022 15:18-0400 Diastolic blood pressure 75 mm[Hg] [facility] 02-17-2022 15:18-0400 Heart rate 79 /min [facility] 02-17-2022 15:18-0400 Mean blood pressure 92 mm[Hg] [facility] 02-17-2022 15:18-0400 Respiratory rate 16 /min [facility] 02-17-2022 15:18-0400 SaO2% (BldA) [Mass fraction] 99 % [facility] 02-17-2022 15:18-0400 Systolic blood pressure 126 mm[Hg] [facility] 02-17-2022 14:58-0400 Diastolic blood pressure 76 mm[Hg] [facility] 02-17-2022 14:58-0400 Heart rate 79 /min [facility] 02-17-2022 14:58-0400 Mean blood pressure 99 mm[Hg] [facility] 02-17-2022 14:58-0400 Respiratory rate 18 /min [facility] 02-17-2022 14:58-0400 SaO2% (BldA) [Mass fraction] 100 % [facility] 02-17-2022 14:58-0400 Systolic blood pressure 144 mm[Hg] [facility] 02-17-2022 12:30-0400 Body temperature 98.24 [degF] [facility] 02-17-2022 12:30-0400 Heart rate 101 /min [facility] 02-17-2022 12:30-0400 Respiratory rate 18 /min [facility] 02-11-2022 10:22-0400 Body height 170.2 cm Tanvir Black MD Work Phone: [facility] 02-11-2022 10:22-0400 Body mass index (BMI) [Ratio] 26.16 kg/m2 [facility] Black [facility] 02-11-2022 10:22-0400 Body temperature 98.2 [degF] Tanvir Black MD Work Phone: [facility] 02-11-2022 10:22-0400 Body weight 75.75 kg Tanvir Black MD Work Phone: [facility] 02-11-2022 10:22-0400 Diastolic blood pressure 81 mm[Hg] Tanvir Black MD Work Phone: [facility] 02-11-2022 10:22-0400 Heart rate 103 /min Tanvir Black MD Work Phone: [facility] 02-11-2022 10:22-0400 Respiratory rate 16 /min Tanvir Black MD Work Phone: [facility] 02-11-2022 10:22-0400 SaO2% (BldA) [Mass fraction] 100 % Tanvir Black MD Work Phone: [facility] 02-11-2022 10:22-0400 Systolic blood pressure 157 mm[Hg] Tanvir Black MD Work Phone: [facility] 01-17-2022 14:20-0400 Body temperature 98.29 [degF] Francisoc Marino MD Work Phone: [facility] 01-17-2022 14:20-0400 Diastolic blood pressure 56 mm[Hg] Francisco Marino MD Work Phone: [facility] 01-17-2022 14:20-0400 Heart rate 83 /min Francisco Marino MD Work Phone: [facility] 01-17-2022 14:20-0400 Respiratory rate 18 /min Francisco Marino MD Work Phone: [facility] 01-17-2022 14:20-0400 SaO2% (BldA) [Mass fraction] 100 % Francisco Marino MD Work Phone: [facility] 01-17-2022 14:20-0400 Systolic blood pressure 125 mm[Hg] Francisco Marino MD Work Phone: [facility] 01-17-2022 06:00-0400 Body mass index (BMI) [Ratio] 22.77 kg/m2 Francisco [facility]ino MD [facility] 01-17-2022 06:00-0400 Body weight 65.95 kg Francisco [facility]ino MD [facility] 01-10-2022 18:36-0400 Heart rate 96 /min Francisco [facility]ino MD [facility] 01-08-2022 21:47-0400 Heart rate 76 /min Francisco [facility]ino MD [facility] 01-08-2022 14:00-0400 Hourly Rounding Aldair Ila [facility] 01-08-2022 14:00-0400 Promise to Return Aldair Ila [facility] 01-08-2022 14:00-0400 SaO2% (BldA) [Mass fraction] 100 % Aldair Ila [facility] 01-08-2022 08:00-0400 Body height 170.2 cm Francisco Marino MD Work Phone: [facility] 01-08-2022 05:00-0400 Diastolic blood pressure 70 mm[Hg] Aldair Ila [facility] 01-08-2022 05:00-0400 Heart rate 87 /min Aldair Ila [facility] 01-08-2022 05:00-0400 Mean blood pressure 91 mm[Hg] Aldair Ila [facility] 01-08-2022 05:00-0400 Respiratory rate 18 /min Aldair Ila [facility] 01-08-2022 05:00-0400 Systolic blood pressure 134 mm[Hg] Aldair Ila [facility] 01-08-2022 04:00-0400 Body temperature 98.96 [degF] Aldair Ila [facility] 01-08-2022 04:00-0400 Diastolic blood pressure 74 mm[Hg] Aldair Ila [facility] 01-08-2022 04:00-0400 Heart rate 96 /min Aldair Ila [facility] 01-08-2022 04:00-0400 Mean blood pressure 90 mm[Hg] Aldair Ila [facility] 01-08-2022 04:00-0400 Respiratory rate 20 /min Aldair Ila [facility] 01-08-2022 04:00-0400 SaO2% (BldA) [Mass fraction] 97 % Aldair Ila [facility] 01-08-2022 04:00-0400 Systolic blood pressure 122 mm[Hg] Aldair Ila [facility] 01-08-2022 03:00-0400 Diastolic blood pressure 72 mm[Hg] Aldair Ila [facility] 01-08-2022 03:00-0400 Heart rate 80 /min Aldair Ila [facility] 01-08-2022 03:00-0400 SaO2% (BldA) [Mass fraction] 98 % Aldair Ila [facility] 01-08-2022 03:00-0400 Systolic blood pressure 126 mm[Hg] Aldair Ila [facility] 01-08-2022 00:00-0400 Body temperature 98.42 [degF] Aldair Ila [facility] 01-07-2022 20:30-0400 Body temperature 98.06 [degF] Aldair Ila [facility] 01-07-2022 20:00-0400 Blood Pressure Location Aldair Thorpe [facility] 01-07-2022 19:13-0400 Heart rate 112 /min Aldair Galiciaer [facility] 01-07-2022 19:00-0400 Blood Pressure Location Aldair Galiciaer [facility] 01-07-2022 18:00-0400 Blood Pressure Location Aldair Thorpe [facility] 01-07-2022 17:04-0400 Heart rate 110 /min Aldair Thorpe [facility] 01-07-2022 14:32-0400 Heart rate 117 /min 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) Start: 10-01-2023 End: 10-02-2023 ambulatory UNKNOWN PROVIDER Facility:[facility] Start: 10-01-2023 End: 10-01-2023 Patient encounter procedure Lisa Lopez [facility] Start: 09-30-2023 End: 10-01-2023 ambulatory Mario Evans Facility:[facility] Start: 09-27-2023 Letter encounter Theo bright MD Work Phone: [facility] Start: 09-21-2023 End: 09-22-2023 ambulatory Kieth Patricia Facility:[facility] Start: 09-21-2023 ambulatory Axel Debbie Facilit y:[facility] Start: 09-21-2023 End: 09-21-2023 Patient encounter procedure Keith Patricia [facility] Start: 09-03-2023 End: 09-04-2023 ambulatory Martin Talal Sarmini Facility:[facility] Start: 09-03-2023 End: 09-03-2023 Patient encounter procedure Martin Talal Sarmini [facility] Start: 09-01-2023 End: 09-02-2023 ambulatory Martin Talal Sarmini Facility:[facility] Start: 09-01-2023 End: 09-01-2023 Patient encounter procedure Martin Talal Sarmini [facility] Start: 08-26-2023 End: 08-27-2023 ambulatory Lisa Lopez Facility:[facility] Start: 08-26-2023 End: 08-26-2023 Patient encounter procedure Lisa Lopez [facility] Start: 08-25-2023 Refill Tanvir Black MD Work Phone: [facility] Comment on above: Refill Start: 08-06-2023 End: 08-07-2023 ambulatory Teddy Hitchcock Facility:[facility] Start: 08-06-2023 End: 08-06-2023 Patient encounter procedure Teddy Hitchcock [facility] Start: 08-03-2023 ambulatory Lisa Lopez Facil ity:[facility] Start: 07-27-2023 ambulatory Teddy Hitchcock Facility:[facility] Start: 07-24-2023 End: 07-25-2023 ambulatory Lisa Lopez Facility:[facility] Start: 07-24-2023 End: 07-25-2023 ambulatory Lisa Lopez Facility:[facility] Start: 07-24-2023 End: 07-24-2023 Lab Drop off Lisa Lopez [facility] Start: 07-24-2023 End: 07-24-2023 Patient encounter procedure Lisa Lopez [facility] Start: 07-23-2023 End: 07-24-2023 ambulatory Teddy Hitchcock Facility:[facility] Start: 07-23-2023 End: 07-23-2023 Patient encounter procedure Teddy Hitchcock [facility] Start: 07-20-2023 E-mail encounter fro m caregiver Tanvir Black MD Work Phone: [facility] Start: 07-20-2023 Patient encounter procedure Tanvir Black MD Work Phone: [facility] Comment on above: Had to reschedule ap pointment Start: 07-16-2023 ambulatory Teddy Hitchcock Facility:[facility] Start: 07-16-2023 End: 07-17-2023 ambulatory Teddy Hitchcock Facility:[facility] Start: 07-16-2023 End: 07-16-2023 Patient encounter procedure Teddy Hitchcock [facility] Start: 07-13-2023 Refill Marcello Ibanez MD Work Phone: [facility] Comment on above: Refill Start: 07-11-2023 Refill Tanvir Black MD Work Phone: [facility] Comment on above: Refill Start: 07-06-2023 End: 07-07-2023 Pre-admission assessment Teddy Hitchocck [facility] Start: 06-25-2023 End: 06-26-2023 ambulatory Teddy Gauthierdamaso Facility:[facility] Start: 06-25-2023 End: 06-25-2023 Patient encounter procedure Teddy Gauthierdamaso [facility] Start: 06-19-2023 End: 06-19-2023 Emergency department patient visit Teddy Luna Facility:[facility] Start: 06-19-2023 End: 06-19-2023 Emergency department patient visit Teddy Luna [facility] Start: 06-18-2023 End: 06-19-2023 ambulatory Teddy Hitchcock Facility:[facility] Start: 06-18-2023 End: 06-18-2023 Patient encounter procedure Teddy Rodarte Osbaldoyanicky [facility] Start: 06-11-2023 End: 06-12-2023 ambulatory Teddy Hitchcock Facility:[facility] Start: 06-04-2023 End: 06-05-2023 ambulatory Teddy Hitchcock Facility:[facility] Start: 06-04-2023 End: 06-04-2023 Patient encounter procedure Teddy Gauthiery [facility] Start: 05-25-2023 End: 05-26-2023 ambulatory Teddy Gauthiery Facility:[facility] Start: 05-25-2023 End: 05-25-2023 Patient encounter procedure Teddy Gauthiery [facility] Start: 05-14-2023 End: 05-15-2023 ambulatory Teddy Gauthiery Facility:[facility] Start: 05-14-2023 End: 05-14-2023 Patient encounter procedure Teddy Hitchcock [facility] Start: 05-08-2023 End: 05-09-2023 ambulatory Teddy Hitchcock Facility:[facility] Start: 05-07-2023 End: 05-08-2023 ambulatory Teddy Hitchcock Facility:[facility] Start: 05-07-2023 End: 05-07-2023 Patient encounter procedure Teddy Hitchcock [facility] Start: 04-30-2023 End: 05-02-2023 ambulatory Teddy Hitchcock Facility:[facility] Start: 04-30-2023 End: 05-01-2023 Pre-admission assessment Teddy Aster Hitchcock [facility] Start: 04-24-2023 End: 04-24-2023 ambulatory Jarrod Eddy Other [facility] Other Start: 04-24-2023 Office outpatient ne w 45 minutes Jarrod Eddy [facility] Start: 04-24-2023 Refill Tanvir Black MD Work Phone: [facility] Comment on above: Refill Start: 04-23-2023 End: 04-24-2023 ambulatory Teddy Aster Robleroyanickdamaso Facility:[facility] Start: 04-23-2023 End: 04-23-2023 Patient encounter procedure Teddy Hitchcock [facility] Start: 04-22-2023 ambulatory Tanvir Black MD Work Phone: [facility] Comment on above: lab results Start: 04-22-2023 E-mail encounter fro m caregiver Tanvir Black MD Work Phone: [facility] Start: 04-21-2023 End: 04-22-2023 ambulatory UNKNOWN PROVIDER Facility:[facility] Start: 04-21-2023 Encounter for other specified special examinations UNKNOWN PROVIDER [facility] Start: 04-21-2023 End: 04-21-2023 Patient encounter status Tanvir Black MD Work Phone: [facility] Start: 04-21-2023 End: 04-21-2023 Subsequent hospital visit by physician Monie Hernandez RN [facility] Comment on above: Dx: Multiple myeloma , remission status unspecified (HCC) (Primary Dx) 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 Start: 04-13-2023 End: 04-14-2023 ambulatory Teddy Hitchcock Facility:[facility] Start: 04-13-2023 End: 04-13-2023 Patient encounter procedure Teddy Hitchcock [facility] Start: 03-30-2023 End: 03-31-2023 ambulatory Teddy Hitchcock Facility:[facility] Start: 03-22-2023 End: 03-22-2023 Emergency department patient visit Martin Reese Facility:[facility] Start: 03-22-2023 End: 03-22-2023 Emergency department patient visit Martin Reese [facility] Start: 03-22-2023 Letter encounter Tanvir Black MD Work Phone: [facility] Comment on above: Refill Start: 03-16-2023 End: 03-17-2023 ambulatory Teddy Hitchcock Facility:[facility] Start: 03-16-2023 End: 03-16-2023 Patient encounter procedure Teddy Hitchcock [facility] Start: 03-06-2023 Refill Theo wilder MD Work Phone: [facility] Comment on above: Refill Prior Authorization Start: 03-05-2023 End: 03-06-2023 ambulatory Teddy Hitchcock Facility:[facility] Start: 03-05-2023 End: 03-05-2023 Patient encounter procedure Teddy Hitchcock [facility] Start: 02-27-2023 Telephone encounter Nighat rai WHITE WASHER-PUBLIC POLICY MANAGER Work Phone: [facility] Comment on above: Left Message To Call Back Start: 02-18-2023 End: 02-18-2023 Emergency department patient visit Brent Sanches Facility:[facility] Start: 02-18-2023 End: 02-18-2023 Emergency department patient visit Brent Sanches 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) Start: 01-12-2023 End: 01-12-2023 Office outpatient visit 25 minutes Marcello Ibanez MD Work Phone: [facility] Comment on above: Liver fibrosis (Prim tanner Dx); Alcohol use disorder in remission; Elevated liver enzymes; Jaundice; Body mass index (BMI) 27.0-27.9, adult Start: 12-20-2022 Letter encounter Theo bright MD Work Phone: [facility] Start: 12-16-2022 End: 12-16-2022 ambulatory UNKNOWN PROVIDER Facility:[facility] Start: 12-16-2022 End: 12-16-2022 Office outpatient visit 15 minutes Dejuan Lechuga MD Work Phone: [facility] Comment on above: Rib pain (Primary Dx ); Alcoholic cirrhosis of liver without ascites (HCC); Body mass index (BMI) 28.0-28.9, adult Start: 12-15-2022 End: 12-15-2022 Phys/qhp telephone evaluation 11-20 min Theo Burks MD Work Phone: [facility] Comment on above: Rib pain (Primary Dx ) Start: 12-15-2022 End: 12-19-2022 ambulatory UNKNOWN PROVIDER Facility:[facility] Start: 12-15-2022 Letter encounter Theo bright MD Work Phone: 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) Start: 10-27-2022 Letter encounter Theo bright MD Work Phone: [facility] Start: 10-27-2022 End: 11-03-2022 ambulatory UNKNOWN PROVIDER Facility:[facility] Start: 10-27-2022 End: 11-03-2022 Office outpatient visit 25 minutes Marcello Ibanez MD Work Phone: [facility] Comment on above: Alcoholic cirrhosis of liver without ascites (HCC) (Primary Dx); Nausea Alcoholic fatty live r (Primary Dx); Nausea; Hyperbilirubinemia; Alcoholic hepatitis, unspecified whether ascites present Alcoholic fatty live r (Primary Dx); Nausea; Hyperbilirubinemia; Alcoholic hepatitis, unspecified whether ascites present; Body mass index (BMI) 26.0-26.9, adult Start: 10-01-2022 Refill Abbey Love Work Phone: [facility] Comment on above: Refill I have a few questio ns Start: 09-21-2022 Letter encounter Theo bright MD Work Phone: [facility] Start: 09-20-2022 Telephone encounter Tanika lange RN Work Phone: [facility] Comment on above: Cancel Appointment Start: 09-16-2022 Orders Only Saskia Gricelda WHITE WASHER-PUBLIC POLICY MANAGER Work Phone: [facility] Start: 09-15-2022 Orders Only Samantha Stauffer WHITE WASHER-PUBLIC POLICY MANAGER Work Phone: [facility] Start: 08-29-2022 End: 08-29-2022 Phys/qhp telephone evaluation 5-10 min Theo Burks MD Work Phone: [facility] Comment on above: Cellulitis, unspecif ied cellulitis site (Primary Dx); Muscle soreness Start: 08-25-2022 End: 08-25-2022 Orders Only Abbey Alvarez MD Work Phone: [facility] Comment on above: Arrived Start: 08-25-2022 End: 08-26-2022 Office outpatient visit 25 minutes Abbey Alvarez MD Work Phone: [facility] Comment on above: Alcoholic hepatitis [...] adult Start: 08-22-2022 ambulatory Jim Hill RN [facility] Comment on above: internal med request Start: 08-22-2022 E-mail encounter giana m caregiver Jim Hill RN [facility] Start: 08-21-2022 Letter encounter Lorena Sparrow Ultrasound Start: 08-16-2022 Orders Only Tanvir Black MD Work Phone: [facility] Start: 08-15-2022 ambulatory Tanvir Black MD Work Phone: [facility] Comment on above: Severe pain Start: 08-15-2022 E-mail encounter fro m caregiver Tanvir Black MD Work Phone: [facility] Start: 08-15-2022 End: 08-15-2022 Emergency department patient visit Ann-Marie Bonner MD Work Phone: [facility] Comment on above: Leg/thigh symptoms ( Pt states has infection in R leg x 4 days, seen yesterday for same) Start: 08-15-2022 End: 08-15-2022 Office outpatient new 30 minutes Nenita Franco MD Work Phone: [facility] Comment on above: Cellulitis, unspecif ied cellulitis site (Primary Dx); Body mass index (BMI) 26.0-26.9, adult Start: 08-14-2022 Letter encounter [facility] Start: 08-14-2022 End: 08-14-2022 Office consultation new/estab patient 60 min Saskia SILVESTRE Work Phone: [facility] Comment on above: Alcoholic cirrhosis, unspecified whether ascites present (HCC) (Primary Dx); Iron deficiency anemia, unspecified iron deficiency anemia type; Alcoholic cirrhosis of liver without ascites (HCC); Body mass index (BMI) 27.0-27.9, adult Start: 08-14-2022 End: 08-14-2022 Subsequent hospital visit by physician Jasmyne Grimaldo RN [facility] Comment on above: Dx: Thrombocytopenia (HCC) (Primary Dx) Start: 08-14-2022 End: 08-14-2022 Office outpatient visit 40 minutes Tanvir Black MD Work Phone: [facility] Comment on above: 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) Start: 08-08-2022 ambulatory Tanvir Black MD Work Phone: [facility] Comment on above: Question Start: 08-08-2022 E-mail encounter giana m caregiver Tanvir Black MD Work Phone: [facility] Start: 05-06-2022 End: 05-06-2022 Office outpatient visit 40 minutes Tanvir Black MD Work Phone: [facility] Comment on above: 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) Start: 05-06-2022 End: 05-06-2022 Subsequent hospital visit by physician Leslie Canela RN Work Phone: [facility] Comment on above: 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) Start: 05-05-2022 Letter encounter [facility] Start: 03-13-2022 Letter encounter [facility] Start: 03-13-2022 End: 03-13-2022 Subsequent hospital visit by physician Rosita Le RN Work Phone: [facility] Comment on above: 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 Procedures Date Procedure Procedure Detail Performing [...] Phone: Start: 11-13-2022 Alpha-fetoprotein serum Saskia Madison WHITE WASHER-PUBLIC POLICY MANAGER Work Phone: Start: 11-13-2022 Antihuman globulin direct [...] Start: 01-15-2022 End: 01-15-2022 Lactate dehydrogenase ldh Ariopher De La Vega DO Work Phone: Start: 01-14-2022 Glucose blood reagent strip Leon ordoñez MD Work Phone: Start: 01-14-2022 Glucose blood reagent strip Leon ordoñez MD Work Phone: Start: 01-14-2022 Hepatic function panel Ivy Chua MD Work Phone: Start: 01-14-2022 End: 01-14-2022 Lactate dehydrogenase ldh Ariopher De La Vega DO Work Phone: Start: [...] 01-12-2022 End: 01-12-2022 Lactate dehydrogenase ldh Cjer De La Vega DO Work Phone: Start: 01-11-2022 Glucose blood reagent strip Leon ordoñez MD Work Phone: Start: 01-11-2022 Blood typing serologic abo Cjdeena MooreDe La Vega DO Work Phone: Start: 01-11-2022 Blood count smear mcrscp w/mnl difrntl wbc count Ivy Chua MD Work Phone: Start: 01-11-2022 Blood typing, ABO, Rho(D) and RBC antibody screening Arimaame De La Vega DO Work Phone: Start: 01-11-2022 Hepatic function panel Ivy Chua MD Work Phone: Start: 01-11-2022 Lactate dehydrogenase ldh Arivictorinaer De La Vega DO Work Phone: Start: 01-10-2022 End: 01-10-2022 Assay of magnesium Abhinav De La Vega DO Work Phone: Start: 01-10-2022 Ecg routine ecg w/least 12 lds trcg only w/o i&r To Be Assigned Start: 01-10-2022 Dup-scan artl virgilio abdl/pel/scrot&/rpr orgn com Abhinav Mooreningham DO Work Phone: Start: 01-10-2022 Clotting factor viii ahg 1 stage Scott De La Vega DO Work Phone: Start: 01-10-2022 Us abdominal real time w/image limited Salina Franks MD Work Phone: Start: 01-10-2022 Creatine kinase total Mateo Albert MD Work Phone: Start: 01-10-2022 Hepatic [...] 01-08-2022 Iadna hepatitis c quant & reverse sales management intern Ivy Chua MD Work Phone: Start: 01-08-2022 Lipoprotein dir noelle high density cholesterol Salina Franks MD Work Phone: Start: 01-08-2022 CT BODY IMAGE IMPORT(CHRISTIANO) Ivy Love Work Phone: Start: 01-08-2022 XRAY CHEST IMAGE IMPORT(CHRISTIANO) Ivy harley MD Work Phone: Start: 01-08-2022 End: 01-08-2022 [...] Lopez Jaw region structure (body structure) Aldair Ila Plan of Treatment Date Care Activity Detail Author Start: 2034 Varicella-zoster vaccine (product) [facility] Start: 01-08-2027 Lipid panel [facility] Start: 10-28-2023 ambulatory Ambulatory Facility:[facility] Start: 10-01-2023 End: 10-01-2023 Patient encounter procedure 10/01/2023 8:30 AM EST Appointment [facility] [address] [place] [id number] Tanvir Black MD [address] [place] [id number] [facility] Start: 07-27-2023 End: 07-27-2023 Patient encounter procedure 07/27/2023 10:00 AM EST Office Visit [facility] [address] [place] [id number] Marcello Ibanez MD [address] [place] [id number] [facility] Start: 07-20-2023 End: 07-20-2023 Patient encounter procedure [facility] Start: 06-07-2023 Influenza vaccination Influenza Vaccine (#1) [facility] Start: 05-16-2023 Fluid sample AFP level [facility] Start: 05-08-2023 Influenza vaccination Influenza Vaccine (#1) [facility] Start: 04-21-2023 End: 04-21-2023 Patient encounter procedure [facility] Start: 03-20-2023 End: 03-20-2023 Patient encounter procedure [facility] Start: 03-03-2023 End: 03-03-2023 Telemedicine consultation with patient 03/03/2023 11:20 AM EDT Telemedicine [facility] [address] [place] [address] Nighat Mahmood, LIBAN-PUBLIC POLICY MANAGER [address] [place] [id number] [facility] Start: 01-20-2023 End: 01-20-2023 Patient encounter procedure 01/20/2023 Appointment Radiology [facility] Start: 01-12-2023 End: 01-12-2023 Patient encounter procedure [facility] Start: 12-16-2022 End: 12-16-2022 Patient encounter procedure 12/16/2022 Office Visit Family Practice Dejuan Lechuga MD [address] [place] [address] [facility] Start: 12-15-2022 End: 12-15-2022 Telemedicine consultation with patient 12/15/2022 Telemedicine Family Practice Theo Burks MD [address] [place] [address] Arrived [facility] Comment on above: Arrived Start: 12-15-2022 End: 12-16-2023 XR Ribs - left Views and Chest PA XR RIBS LT UNILAT W/PA CHEST Imaging Routine Rib pain Expected: 12/15/2022, Expires: 12/16/2023 [facility] Work Phone: Comment on above: Expected: 12/15/2022, Expires: 4 Start: 11-13-2022 End: 11-13-2022 Patient encounter procedure [facility] Start: 10-27-2022 End: 10-27-2023 RF Guidance for transjugular biopsy of Liver-- W contrast IV [facility] Comment on above: Expected: 10/27/2022, Expires: 4 Start: 10-27-2022 End: 10-27-2022 Patient encounter procedure 10/27/2022 Office Visit Gastroenterology Abbey Alvarez MD [address] [place] [address] [facility] Start: 09-22-2022 End: 09-22-2022 Admission to same day surgery center [facility] Comment on [...] Hospital Encounter Gastroenterology Claire Avila MD [address] [place] [address] [facility] Start: 09-19-2022 End: 09-19-2022 Patient encounter procedure 09/19/2022 Office Visit Gastroenterology Saskia Madison, LIBAN-PUBLIC POLICY MANAGER [address] [place] [address] [facility] Start: 09-16-2022 End: 10-17-2022 SARS-CoV-2 (COVID-19) RNA [Presence] in Unspecified specimen by ANGIE with probe detection NOVEL CORONAVIRUS (COVID-19) Lab Routine Encounter for laboratory testing for severe acute respiratory syndrome coronavirus 2 (SARS-CoV-2) Expected: 09/16/2022, Expires: 10/17/2022 [employer] Work Phone: Comment on above: Expected: 09/16/2022, Expires: Start: 09-15-2022 End: 10-16-2022 SARS-CoV-2 (COVID-19) RNA [Presence] in Unspecified specimen by ANGIE with probe detection NOVEL CORONAVIRUS (COVID-19) Lab Routine Encounter for laboratory testing for severe acute respiratory syndrome coronavirus 2 (SARS-CoV-2) Expected: 09/15/2022, Expires: 10/16/2022 [employer] [facility] Work Phone: Comment on above: Expected: 09/15/2022, Expires: 3 Start: 09-11-2022 Hepatitis B vaccination Hepatitis B (HBV) Vaccine (2 of 3 - 19+ 3-dose series) [facility] Start: 09-08-2022 End: 10-26-2022 Basic metabolic 2000 panel - Serum or Plasma BASIC METABOLIC PANEL Lab Routine Alcoholic hepatitis without ascites Alcoholic cirrhosis of liver without ascites (HCC) 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) Expected: 09/08/2022, Expires: 10/26/2022 [facility] Comment on above: Expected: 09/08/2022, Expires: 3 Start: 08-29-2022 End: 08-29-2022 Patient encounter procedure 08/29/2022 Office Visit Family Practice Theo Burks MD [address] [place] [address] [facility] Start: 08-28-2022 End: 08-28-2022 Telemedicine consultation with patient 08/28/2022 Telemedicine Gastroenterology Saskia Madison APRN-DAYAMI [address] [place] [address] [facility] Start: 08-27-2022 End: 09-12-2022 Assay of ferritin FERRITIN Lab Routine Alcoholic hepatitis without ascites Alcoholic cirrhosis of liver without ascites (HCC) 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) Expected: 08/27/2022, Expires: 09/12/2022 [facility] Comment on above: Expected: 08/27/2022, Expires: 3 Start: 08-27-2022 End: 09-12-2022 Assay of gammaglobulin iga igd igg igm each IMMUNOGLOBULIN G Lab Routine Alcoholic hepatitis without ascites Alcoholic cirrhosis of liver without ascites (HCC) 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) Expected: 08/27/2022, Expires: 09/12/2022 [facility] Comment on above: Expected: 08/27/2022, Expires: 3 Start: 08-27-2022 End: 09-12-2022 Assay of iron IRON AND TIBC Lab Routine Alcoholic hepatitis without ascites Alcoholic cirrhosis of liver without ascites (HCC) 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) Expected: 08/27/2022, Expires: 09/12/2022 [facility] Comment on above: Expected: 08/27/2022, Expires: 3 Start: 08-27-2022 End: 09-12-2022 Hfe hemochromatosis gene anal common variants HEMOCHROMATOSIS DNA TEST Lab Routine Alcoholic hepatitis without ascites Alcoholic cirrhosis of liver without ascites (HCC) 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) Expected: 08/27/2022, Expires: 09/12/2022 [facility] Comment on above: Expected: 08/27/2022, Expires: 3 Start: 08-27-2022 End: 09-12-2022 Smooth muscle antibody measurement SMOOTH MUSC ATB SCRN & TITR Lab Routine Alcoholic hepatitis without ascites Alcoholic cirrhosis of liver without ascites (HCC) 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) Expected: 08/27/2022, Expires: 09/12/2022 [facility] Comment on above: Expected: 08/27/2022, Expires: 3 Start: 08-27-2022 End: 09-12-2022 Unlisted chemistry procedure MISCELLANEOUS SEND OUT TE ST Lab Routine Alcoholic hepatitis without ascites Alcoholic cirrhosis of liver without ascites (HCC) 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) Expected: 08/27/2022, Expires: 09/12/2022 [employer] [facility] Work Phone: Comment on above: Expected: 08/27/2022, Expires: 3 Start: 08-25-2022 End: 09-12-2022 Prothrombin time PROTHROMBIN TIME AND INR Lab Lab Add-On Alcoholic cirrhosis of liver without ascites (HCC) Expected: 08/25/2022, Expires: 09/12/2022 [employer] Work Phone: Comment on above: Expected: 08/25/2022, Expires: 3 Start: 08-25-2022 End: 08-25-2022 Patient encounter procedure [facility] Comment on above: Arrived Start: 08-19-2022 End: 08-19-2022 Professional / ancillary services management 08/19/2022 Ancillary Procedure Radiology [facility] [place] [facility] Start: 08-19-2022 End: 08-19-2022 Professional / ancillary services management 08/19/2022 Ancillary Procedure Radiology [facility] [place] [facility] Start: 08-14-2022 End: 08-14-2023 US Abdomen RUQ US LIVER/GALL BLADDER/PANCREAS Imaging Routine Iron deficiency anemia, unspecified iron deficiency anemia type Alcoholic cirrhosis, unspecified whether ascites present (HCC) Expected: 08/14/2022, Expires: 08/14/2023 [facility] Work Phone: Comment on above: Expected: 08/14/2022, Expires: 3 Start: 08-14-2022 End: 08-14-2023 US.doppler Portal vein and Hepatic vein US HEP PORT SPLEN VEIN + DOPPLER Imaging Routine Iron deficiency anemia, unspecified iron deficiency anemia type Alcoholic cirrhosis, unspecified whether ascites present (HCC) Expected: 08/14/2022, Expires: 08/14/2023 [facility] Comment on above: Expected: 08/14/2022, Expires: 3 Start: 08-14-2022 End: 08-14-2022 Patient encounter procedure [facility] Start: 07-11-2022 Hepatocellular Carcinoma Screening Hepatocellular Carcinoma Screening [facility] Start: 07-11-2022 Liver Imaging (Hepatocellular Carcinoma Screening) Liver Imaging (Hepatocellular Carcinoma Screening) [facility] Start: 07-11-2022 [facility] Start: 06-07-2022 Influenza vaccination Influenza Vaccine (#1) [facility] Start: 05-06-2022 Subsequent hospital visit by physician 05/06/2022 Hospital Encounter Oncology Medical Tanvir Black MD [address] [place] [address] [place] [address] Subj: Appointment Reminder [facility] Comment on above: Subj: Appointment Reminder Start: 05-06-2022 End: 05-06-2022 Patient encounter procedure [facility] Non Invasive Cardiology Start: 04-07-2022 Influenza vaccination Influenza Vaccine (#1) [facility] Start: 03-13-2022 End: 03-13-2022 Patient encounter procedure 03/13/2022 Appointment Oncology Medical [facility] Start: 03-13-2022 End: 03-13-2022 Patient encounter procedure 03/13/2022 Appointment Oncology Medical Tanvir Black MD [address] [place] [address] [facility] Start: 02-11-2022 End: 02-11-2022 ambulatory [facility] Start: 02-11-2022 End: 02-11-2022 Patient encounter procedure 02/11/2022 Appointment Oncology Medical Tanvir Black MD [address] [place] [address] [facility] Start: 01-23-2022 End: 01-23-2022 ambulatory [facility] Start: 01-23-2022 End: 01-23-2022 Patient encounter procedure 01/23/2022 Office Visit Orthopedics Ronen Welch MD [address] [place] [address] [facility] Start: 01-20-2022 End: 01-20-2022 ambulatory [facility] Start: 02-05-2021 COVID-19 Vaccine (2 - Moderna risk series) COVID-19 Vaccine (2 - Moderna risk series) [facility] Start: 02-05-2021 COVID-19 Vaccine (3 - Moderna risk series) COVID-19 Vaccine (3 - Moderna risk series) [facility] Start: 2011 HPV Vaccine (optional start 27-45 years) HPV Vaccine (optional start 27-45 years) [facility] Start: 2003 Shingles (RZV) Vaccine (1 of 2) Shingles (RZV) Vaccine (1 of 2) [facility] Start: 2002 Tetanus + diphtheria + acellular pertussis vaccine (product) [facility] Start: 1990 Pneumococcal vaccination [facility] Start: 1990 [...] EST [facility] Assay of haptoglobin quantitative [facility] Work Phone: End: 03-13-2023 Assay of [...] Routine Dysuria 08/14/2022 12:17 PM EST [employer] [facility] Work Phone: Basic metabolic 2000 panel - [facility] End: 03-13-2023 Basic metabolic 2000 panel - Serum or Plasma BASIC METABOLIC PANEL Lab STAT 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 for 12 Occurrences starting 03/13/2022 until 03/13/2023, 1 completed [facility] Comment on above: monthly for 12 Occurrences [...] METABOLIC PANEL Lab Routine Nausea Ordered: 10/27/2022 [facility] Comment on above: Ordered: 10/27/2022 End: 11-13-2023 Basic metabolic 2000 panel - Serum or Plasma BASIC METABOLIC PANEL Lab STAT 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) 6 Occurrences starting 11/12/2022 until 11/13/2023, 1 completed [facility] Comment on above: 6 Occurrences starting 11/12/2022 until 11/13/2023, 1 completed End: 11-13-2023 Blood count reticulocyte automated RETICULOCYTE COUNT Lab STAT 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) 6 Occurrences starting 11/12/2022 until 11/13/2023, 1 completed [facility] Comment on above: 6 Occurrences starting 11/12/2022 until 11/13/2023, 1 completed CBC panel - Blood by Automated count [facility] End: 08-14-2023 CBC panel - Blood by Automated count COMPLETE BLOOD COUNT Lab Routine Iron deficiency anemia, unspecified iron deficiency anemia type Alcoholic cirrhosis, unspecified whether ascites present (HCC) 1 Occurrences starting 08/14/2022 until 08/14/2023 [facility] Comment on above: 1 Occurrences starting 08/14/2022 until 08/14/2023 CBC panel - Blood by Automated count COMPLETE BLOOD COUNT Lab Routine Nausea Ordered: 10/27/2022 [facility] Comment on above: Ordered: 10/27/2022 End: 03-13-2023 CBC W Auto Differential panel - Blood COMPLETE BLOOD COUNT W/DIFF Lab STAT 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 for 12 Occurrences starting 03/13/2022 until 03/13/2023, 1 completed [employer] Work Phone: Comment on above: monthly for 12 Occurrences starting 03/2022 until 03/13/2023, 1 completed End: 11-13-2023 CBC W Auto Differential panel - Blood COMPLETE BLOOD COUNT W/DIFF Lab STAT 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) 6 Occurrences starting 11/12/2022 until 11/13/2023, 1 completed [employer] Work Phone: Comment on above: 6 Occurrences starting 11/12/2022 until 11/13/2023, 1 completed Creatine kinase total CREATINE K INASE Lab Routine Muscle soreness Ordered: 08/29/2022 [employer] Work Phone: Comment on above: Ordered: 08/29/2022 ESOPHAGOGASTRODUODEN OSCOPY, GENERAL ANESTHESIA [facility] Hepatic function panel [employer] Work Phone: End: 03-13-2023 Hepatic function panel HEPATIC FUNCTION PANEL Lab STAT 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 for 12 Occurrences starting 03/13/2022 until 03/13/2023, 1 completed [facility] Comment on above: monthly for 12 Occurrences starting 03/2022 until 03/13/2023, 1 completed End: 08-14-2023 Hepatic function panel HEPATIC FUNCTION PANEL Lab Routine Iron deficiency anemia, unspecified iron deficiency anemia type Alcoholic cirrhosis, unspecified whether ascites present (HCC) 1 Occurrences starting 08/14/2022 until 08/14/2023 [facility] Comment on above: 1 Occurrences starting 08/14/2022 until 08/14/2023 Hepatic function panel HEPATIC F UNCTION PANEL Lab Routine Nausea Ordered: 10/27/2022 [facility] Comment on above: Ordered: 10/27/2022 End: 11-13-2023 Hepatic function panel HEPATIC FUNCTION PANEL Lab STAT 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) 6 Occurrences starting 11/12/2022 until 11/13/2023, 1 completed [facility] Comment on above: 6 Occurrences starting 11/12/2022 until 11/13/2023, 1 completed Hfe hemochromatosis gene anal common variants HEMOCHROMATOSIS DNA TEST Lab Routine Alcoholic hepatitis without ascites Alcoholic cirrhosis of liver without ascites (HCC) 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) 08/25/2022 12:41 PM EST [facility]fe hemochromatosis gene anal common variants HEMOCHROMATOSIS DNA TEST Lab Routine Increased storage iron 11/13/2022 11:58 AM EST [facility] Lactate dehydrogenase ldh [facility] End: 03-13-2023 Lactate dehydrogenase ldh LDH Lab STAT Hemolytic anemi a due to warm antibody (HCC) monthly for 12 Occurrences starting 03/13/2022 until 03/13/2023, 1 completed [facility] Comment on above: monthly for 12 Occurrences starting 03/2022 until 03/13/2023, 1 completed End: 11-13-2023 Lactate dehydrogenase ldh LDH Lab STAT Hemolytic anemi a due to warm antibody (HCC) 6 Occurrences starting 11/12/2022 until 11/13/2023, 1 completed [facility] Comment on above: 6 Occurrences starting 11/12/2022 until 11/13/2023, 1 completed Prothrombin time [facility] End: 08-14-2023 Prothrombin time PROTHROMBIN TIME AND INR Lab Routine Iron deficiency anemia, unspecified iron deficiency anemia type Alcoholic cirrhosis, unspecified whether ascites present (HCC) 1 Occurrences starting 08/14/2022 until 08/14/2023 [facility] Comment on above: 1 Occurrences starting 08/14/2022 until 08/14/2023 Prothrombin time PROTHROMBIN IVAN E AND INR Lab Routine Nausea Ordered: 10/27/2022 [facility] Work Phone: Comment on above: Ordered: 10/27/2022 Smooth muscle antibo dy measurement SMOOTH MUSC ATB SCRN & TITR Lab Routine Alcoholic hepatitis without ascites Alcoholic cirrhosis of liver without ascites (HCC) 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) 08/25/2022 12:41 PM [facility] Unlisted chemistry procedure MIS CELLANEOUS SEND OUT TEST Lab Routine Alcoholic hepatitis without ascites Alcoholic cirrhosis of liver without ascites (HCC) 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) 08/25/2022 12:41 PM EST [facility] Immunizations Immunization Date Immunization Notes Care Provider Vandana watters 10-27-2022 hepatitis B vaccine, unspecified formulation Marcello Ibanez MD Work Phone: [facility] 08-14-2022 hepatitis B vaccine, adult dosage Saskia Madison [employer] Work Phone: [facility] 01-08-2021 Moderna Monovalent (12+ yrs) COVID-19 vaccine, mRNA, spike protein, LNP, PF, 100 mcg/0.5 mL (TFW=688) Marcello Ibanez MD Work Phone: [facility] 12-11-2020 Moderna Monovalent (12+ yrs) COVID-19 vaccine, mRNA, spike protein, LNP, PF, 100 mcg/0.5 mL (VUF=016) Marcello Ibanez MD Work Phone: [facility] NEGATED: Highlighted row has not occurred!08-26-2023 influenza virus vaccine, unspecified formulation Lisa Lopez [facility] Health Payers Date Payer Category Payer Unknown [id number] 2021 Unknown [id number] 2. [id number] 1984 Unknown [id number] 2.16. 840.1.612231.3.579.2.732 1984 Unknown [id number] 2.16. 840.1.073161.3.579.2.73 1984 Unknown [id number] 2.16. 840.1.468216.3.579.2.73 1984 Unknown [id number] 2.16. 840.1.262744.3.579.2.732 1984 Unknown [id number] 2.16. 840.1.925606.3.579.2.732 1984 Unknown [id number] 2.16. 840.1.552372.3.579.2.2 1984 Unknown [id number] 2.16. 840.1.980524.3.579.2. 1984 Unknown [id number] 2.16. 840.1.880294.3.579.2. 1984 Unknown [id number] 2.16. 840.1.635317.3.579.2. 1984 Unknown [id number] 2.16. 840.1.720441.3.579.2. 1984 Unknown [id number] 2.16. 840.1.899851.3.579.2. 1984 Unknown [id number] 2.16. 840.1.197826.3.579.2. 1984 Unknown [id number] 2.16.8 40.1.556998.3.579.2 1984 Unknown [id number] 2.16.8 40.1.240498.3.579.2 1984 Unknown [id number] 2.16.8 40.1.588624.3.579.2 1984 Unknown [id number] 2.16.8 40.1.301605.3.579.2 1984 Unknown [id number] 2.16.8 40.1.238575.3.579.2 1984 Unknown [id number] 2.16.8 40.1.962124.3.579.2 1984 Unknown [id number] 2.16.8 40.1.341350.3.579.2 1984 Unknown [id number] 2.16.8 40.1.395111.3.579.2 1984 Unknown [id number] 2.16.8 40.1.915716.3.579.2 1984 Unknown [id number] 2.16.8 40.1.859879.3.579.2. 1984 Unknown [id number] 2.16.8 40.1.915583.3.579.2 1984 Unknown [id number] 2.16.8 40.1.943081.3.579.2. 1984 Unknown [id number] 2.16.8 40.1.074413.3.579.2 1984 Unknown [id number] 2.16.8 40.1.843997.3.579.2 1984 Unknown [id number] 2.16.8 40.1.087270.3.579.2 1984 Unknown [id number] 2.16.8 40.1.068693.3.579.2 1984 Unknown [id number] 2.16.8 40.1.941711.3.579.2 1984 Unknown [id number] 2.16.8 40.1.948781.3.579.2 1984 Unknown [id number] 2.16.8 40.1.468285.3.579.2 1984 Unknown [id number] 2.16.8 40.1.866978.3.579.2 1984 Unknown [id number] 2.16.8 40.1.305295.3.579.2 1984 Unknown [id number] 2.16.8 40.1.838124.3.579.2 1984 Unknown [id number] 2.16.8 40.1.248991.3.579.2 1984 Unknown [id number] 2.16.8 40.1.341197.3.579.2 1984 Unknown [id number] 2.16.8 40.1.832584.3.579.2 1984 Unknown [id number] 2.16.8 40.1.232535.3.579.2.727 1984 Unknown [id number] 2.16.8 40.1.176638.3.579.2.727 1984 Unknown [id number] 2.16.8 40.1.709247.3.579.2.727 1984 Unknown [id number] 2.16.8 40.1.113849.3.579.2.727 1984 Unknown [id number] 2.16.8 40.1.306797.3.579.2.727 1984 Unknown [id number] 2.16.8 40.1.612148.3.579.2.727 1984 Unknown [id number] 2.16.8 40.1.683748.3.579.2.727 1984 Unknown [id number] 2.16.8 40.1.947003.3.579.2.727 Social History Date Type Detail Facility Tobacco Tobacco smoking consumption unknown [facility] Comment on above: daily chew pt denies Sex Assigned At Male [facility] Start: 1984 Sex [facility]igned At M [facility] Tobacco smoking stat [facility] Tobacco smoking consumption unknown [facility] Start: 08-14-2022 End: 09-01-2023 Tobacco smoking status VTIS Ex-smoker [facility] Comment on above: quit cigarettes 9 ye arsago cherry, quit 9 years ago History of tobacco use [facility] Start: 08-14-2022 Tobacco use and exposure User of smokeless tobacco [facility] History of tobacco use Chews Tobacco [facility] Start: 08-05-2022 End: 12-16-2022 Exposure to SARS-CoV-2 (event) Not sure [facility] Start: 08-19-2022 End: 08-29-2022 Exposure to SARS-CoV-2 (event) Unable to assess [facility] Work Phone: Tobacco smoking status No Smokin g Status Entered [facility] Tobacco smoking status Smokeless tobacco user within last 30 days [facility] Comment on above: quit cigarettes [...] glucose, Buccal, PRN, Starting on Thu01/17/22 at 001, Until Discontinued, blood glucose between 50 - 69 mg/dL, and with no IV access, alert and able to swallow. [Order 3 End] [Order 4 Start] Name: dextrose (GLUTOSE) 40 % gel Signed Summary: 30 g of glucose, Buccal, PRN, Starting on Thu01/17/22 at 001, Until Discontinued, blood glucose of 49mg/dL or less, and with no IV access, alert and able to swallow. [Order 4 End] [id number] Start: 01-17-2022 Functional Status Date Assessment Result Facility 09-21-2023 Functional Status N/A [facility] 09-01-2023 Functional Status N/A [facility] 08-26-2023 Functional Status N/A [facility] 07-24-2023 Functional Status N/A [facility] 06-19-2023 Functional Status N/A [facility] 03-22-2023 Functional Status N/A [facility] 02-18-2023 Functional Status N/A [facility] 02-17-2022 Functional Status N/A [facility] Clinical Notes 01-07-2022 to 10-01-2023 Note Date & Type Note Facility 10-01-2023 Note [id number] [facility] 09-30-2023 Note Gastroenterology Upper Endoscopy, Adult, [...] activities are safe for you. ? Take vddt-psj-bttzdff and prescription medicines only as told by [...] provider. Document Revised: 12/03/2022 Document Reviewed: 12/03/2022 [employer] Patient Education ? 2022 [employer] Esophageal Varices Esophageal varices are enlarged [...] esophageal varices. If (more content not included)... [facility] 09-21-2023 Hospital Discharge instructions Follow Up Care 09/21/2023 12:59:46 With:Lisa Padilla FAM, [facility] Address: [facility] [address], [facility] [place] [id number] When: Unknown [facility] 08-26-2023 Hospital Discharge instructions Patient [...] products, such as yogurt. General instructions Take etdq-oqb-avbravq and prescription medicines only as told by [...] provider. Document Revised: 05/08/2022 Document Reviewed: 05/08/2022 [employer] Patient Education 2022 [employer]. 08/26/2023 11:03:00 Stasis Dermatitis Stasis Dermatitis Stasis [...] care provider who specializes in skin diseases (fire claims adjuster). How is this treated? This condition may [...] detergents, or perfumes. Medicines Take or use bzpp-tqq-tpxrvaq and prescription medicines only as told by [...] provider. Document Revised: 11/04/2021 Document Reviewed: 11/04/2021 [employer] Patient Education 2022 [employer]. 08/26/2023 11:02:52 Alcoholic Liver Disease Alcoholic Liver [...] can provide emotional support and guidance. Take ahll-cua-lgzingk and prescription medicines only as told by [...] provider. Document Revised: 06/06/2021 Document Reviewed: 06/06/2021 [employer] Patient Education 2022 [employer]. 08/26/2023 10:41:25 Incision and Drainage Incision and [...] including vitamins, herbs, eye drops, creams, and izyf-ret-xvzpcdr medicines. Any problems you or family members [...] provider tells you to take them. Taking tfvb-exc-piygzmd medicines, vitamins, herbs, and supplements. Tests You [...] provider. Document Revised: 11/27/2022 Document Reviewed: 06/05/2022 [employer] Patient Education 2022 [employer] 08/26/2023 10:41:21 Stasis Dermatitis Stasis Dermatitis [...] care provider who specializes in skin diseases (fire claims adjuster). How is this treated? This condition may [...] detergents, or perfumes. Medicines Take or use ceut-zsd-ickfynh and prescription medicines only as told by [...] provider. Document Revised: 11/04/2021 Document Reviewed: 11/04/2021 [employer] Patient Education 2022 [employer]. 08/26/2023 10:41:14 Hypokalemia Hypokalemia Hypokalemia means that [...] products, such as yogurt. General instructions Take emhq-mzg-jfrzymb and prescription medicines only as told by [...] provider. Document Revised: 05/08/2022 Document Reviewed: 05/08/2022 [employer] Patient Education 2022 [employer] Follow Up Care 07/24/2023 09:02:18 With:Lisa Padilla FAM, MED Address: [address], [address] [address]- Business (1) When:Within 2 Month(s) Comments:3 mo f/u for ulcers, liver disease, labs [facility] 08-24-2023 Note [id number] [facility] 07-24-2023 Hospital Discharge instructions Patient Education [...] provider before taking any new medicines, including iade-jlj-ucvvxti medicines such as NSAIDs. Rest as needed. [...] provider. Document Revised: 06/06/2021 Document Reviewed: 06/06/2021 [employer] Patient Education 2022 [employer] 07/24/2023 09:14:01 Heart Disease Prevention Heart [...] of hard liquor (44 mL). Medicines Take wpbq-iin-dwnstrz and prescription medicines only as told by [...] Centers for Disease Control and Prevention: www.cdc.gov/heartdisease [place] Heart Association: www.heart.org Summary Heart disease is [...] provider. Document Revised: 04/23/2022 Document Reviewed: 04/23/2022 [employer] Patient Education 2022 [employer]. 07/24/2023 09:13:57 Anemia Anemia Anemia is a [...] spleen. Follow these instructions at home: Take ekfa-qdg-khqkucl and prescription medicines only as told by [...] provider. Document Revised: 07/08/2022 Document Reviewed: 07/31/2020 [employer] Patient Education 2022 [employer]. 07/24/2023 09:13:53 Hypokalemia Hypokalemia Hypokalemia means that [...] products, such as yogurt. General instructions Take objx-pyf-ijkqcby and prescription medicines only as told by [...] provider. Document Revised: 05/08/2022 Document Reviewed: 05/08/2022 [employer] Patient Education 2022 [employer]. 07/24/2023 09:13:45 Thrombocytopenia Thrombocytopenia Thrombocytopenia is a [...] Follow these instructions at home: Medicines Take fjxp-reu-nfmlvrp and prescription medicines only as told by [...] provider. Document Revised: 02/06/2022 Document Reviewed: 02/06/2022 [employer] Patient Education 2022 [employer]. [facility] 06-19-2023 Hospital Discharge instructions Patient Education 06/19/2023 13:28:07 Insect Bite, Adult, Lpdl-lp-Lxis Insect Bite, Adult An insect bite can [...] of an anaphylactic reaction may include: Feeling flight coordinator the face (flushed). Your face may turn [...] a day. General instructions Apply or take xjyh-xip-yqhowbq and prescription medicines only as told by [...] ?DEET. ?Picaridin. ?Oil of lemon eucalyptus (OLE). ?[id number]. Consider spraying your clothing with a pesticide [...] an anaphylactic reaction. Signs may include: ?Feeling flight coordinator the face. ?Itchy, red, swollen areas of [...] provider. Document Revised: 05/26/2022 Document Reviewed: 05/26/2022 [employer] Patient Education 2022 [employer]. Follow Up Care 06/19/2023 12:16:43 With:Colby Link Address: [address] [place] [address]- Business (1) When:06/22/2023 12:39:51 Comments:Follow-up with your primary care provider in 3 to 5 days. If symptoms worsen, do not improve, or new symptoms arise please report back to emergency department for further evaluation. [facility] 04-24-2023 Evaluation note Encounter Date Diagnosis [...] sooner should he deteriorate in any way ticckle Other 08-15-2023 History of Present illness Narrative* [...] well. Monie Hernandez RN documented in this [id number] History of Present illness Narrative* Gustabo Ritchie [...] 100 %. Gustabo Pittman documented in this [id number] NoteMicrobiology PROCEDURE: Blood Culture Charcoal [R1] SOURCE: [...] Locations R1: This test was performed at: [facility], [address] [place] [address], [address] [address], [facility]:Performed By: #### [id number] #### [facility] [address] [place] [address] [id number] NoteMicrobiology PROCEDURE: Blood Culture Charcoal [R1] SOURCE: [...] Locations R1: This test was performed at: [facility] [employer] [address] [place] [address], [id number] , , [facility]. Charles HospitalComment on above:Performed By: #### [id number] ####[facility] [address] [place], [place] [id number] Hospital Discharge instructions Patient Education 03/22/2023 21:57:13 [...] Follow these instructions at home: Medicines Take nokp-ple-dbfmphx and prescription medicines only as told by [...] such as antibiotic medicines or antihistamines. Take hddp-dvs-ckdjtzm and prescription medicines only as told by [...] provider. Document Revised: 06/05/2022 Document Reviewed: 06/05/2022 [employer]ap Patient Education 2022 [employer]. Follow Up Care 03/22/2023 19:36:11 With:THEO BURKS Address:Unknown When:Within 3 Day(s) [facility]07-16-2023 Evaluation + Plan noteExtracted from: Title:ED Note Author:Martin Reese DO Date :03/22/23 Cellulitis (L03.90: Cellulit is, unspecified) Orders: ondansetron, 4 mg = 1 tab(s), Oral, q8hr, PRN Nausea/Vomiting, # 20 tab(s), Refills(s) 0, Pharmacy: [facility] #[id number], 170, cm, 03/22/23 20:14:00 EDT, Height/Length Dosing, [...] day(s), 28 tab(s), Refill(s) 0, [facility] #[id number], 170, cm, 03/22/23 20:14:00 EDT, Height/Length Dosing, [...] Charcoal 03/22/23 * Blood Culture Charcoal 03/22/[address] [facility]06-30-2023 Telephone encounter Note* Telephone Encounter - Deborah Gutierrez CPhT - 03/06/2023 8:55 AM EDT A prior authorization has been started for Lidocaine 5% patch PA status can be found under the prescription order in the Medication Tab. History or status of the PA can also be found in Chart Review under Referral tab. [id number] Miscellaneous Notes* Telephone Encounter - Deborah Gutierrez CPhT - 03/06/2023 8:55 AM EDT A prior authorization has been started for Lidocaine 5% patch PA status can be found under the prescription order in the Medication Tab. History or status of the PA can also be found in Chart Review under Referral tab. documented in this [id number] Telephone encounter Note* Telephone Encounter - Nighat Mahmood APRN-CNP - 02/27/2023 5:05 PM EDT Pt had video visit scheduled. Link sent to him, but he never checked in. [employer] Work Phone: [phone] Miscellaneous Notes* Telephone Encounter - Nighat Mahmood [...] Recommendation: n/a Thank you documented in this [id number] Telephone encounter Note* Telephone Encounter - Jordana Stanton RN - 02/27/2023 2:55 PM EDT Called the patient Reminded him of his video visit this ThursdayMarch 03 with Lindsey Mahmood Pt concerned about his leg, he will send a picture to My Chart To his provider Concerned about his infection Notified Lindsey Mahmood [facility] Work Phone: [phone] 159-112406-23-2023 Telephone encounter Note* Telephone Encounter - Tobi Bowen - 02/27/2023 2:36 PM EDT What is the need: call back Situation: Pt states that the doctors office called him stating that they were running behind but he never got a phone call. Please advise Background: Please contact and advise Assessment: Pt contact info is Phone numbers Recommendation: n/a Thank you [id number] Evaluation + Plan noteExtracted from: Title:ED Note Author:Omid PARKER, Xander Field te:02/18/23 Cellulitis of right leg (L03 .115: Cellulitis of right lower limb) Right leg pain (M79.604: Pain in right leg) Orders: clindamycin, 300 mg = 1 cap(s), Oral, q6hr, X 7 day(s), # 28 cap(s), Refills(s) 0, Pharmacy: [facility] #[id number], 170, cm, 02/18/23 7:51:00 EDT, Height/Length Dosing, [...] 15 cap(s), Refills(s) 0, Pharmacy: [facility] #[id number], 170, cm, 02/18/23 7:51:00 EDT, Height/Length Dosing, 77, kg, 02/18/23 7:51:00 EDT, Weight Dosing US LE Venous Duplex Right [facility]06-14-2023 Hospital Discharge instructions Patient Education 02/18/2023 09:31:38 RICE Therapy for Routine Care of Injuries, Ckhh-ht-Eymj RICE Therapy for Routine Care of Injuries [...] provider. Document Revised: 06/13/2021 Document Reviewed: 06/13/2021 [employer]ap Patient Education 2022 [employer]. 02/18/2023 09:31:38 Musculoskeletal Pain Musculoskeletal Pain Musculoskeletal [...] by mouth or applied to theskin. Take heth-rje-gbxugwr and prescription medicines only as told by [...] provider. Document Revised: 12/27/2020 Document Reviewed: 12/05/2020 [employer] Patient Education 2022 [employer]. 02/18/2023 09:31:38 Pain Without a Known Cause [...] Follow these instructions at home: Medicines Take rbgi-rzx-kuefziy and prescription medicines only as told by your health care provider. Ask your health care provider if the medicine prescribed to you: ?Requires you to avoid driving or using machinery. ?Can cause constipation. You may need to take these actions to prevent or treat constipation: ? Drink enough fluid to keep your urine pale yellow. ?Take tvcv-cmz-tuhurns or prescription medicines. ?Eat foods that are [...] the National Suicide Prevention Lifeline at or 887. This is open 24 hours a day. Text the Crisis Text Line at 734360. Summary Pain can occur in any part [...] provider. Document Revised: 04/23/2022 Document Reviewed: 04/23/2022 [employer]ap Patient Education 2022 [employer]. 02/18/2023 09:31:38 Cellulitis, Adult, Smwv-ip-Kpcc Cellulitis, Adult Cellulitis is a skin infection. [...] Follow these instructions at home: Medicines Take divq-hmz-elwutnr and prescription medicines only as told by [...] provider. Document Revised: 06/05/2022 Document Reviewed: 06/05/2022 [employer]ap Patient Education 2022 [employer]. Follow Up Care 02/18/2023 07:42:07 With:THEO BURKS Address:Unknown When:02/21/2023 09:01:56 Comments:Follow-up with your primary care provider in 3 to 5 days. If symptoms worsen, do not improve, or new symptoms arise please report back to emergency department for further evaluation. [facility]05-16-2023 NotePOST-PROCEDURE NOTE Procedure: Transjugular liver biopsy with pressure measurements Pre-operative Diagnosis: Cirrhosis, diagnostic evaluation Post-operative Diagnosis: Portal hypertension, cirrhosis Attending: Erica Rokc MD Second Grade Teacher: Leon Hernadez MD (attending) Brayan Babin MD [...] portion of the procedure. 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 Past Medical History: Diagnosis Date Closed fracture of angle of jaw (HCC) HLA B27 (HLA B27 positive) 2003 Followed with Rheum at [facility] Open fracture of other and unspecified [...] Directives (Living will, health care power of traffic law attorney): none Patient Recent Code Status: Prior Code Status For This Procedure: Full Code Dorota Aj MD [facility]The [facility] History of Present illness Narrative* Meka Lucas RN - 01/12/2023 11:11 AM EDT Labs drawn peripherally from right forearm. documented in this [id number] History of Present illness Narrative* Gustabo Ritchie [...] 100 %. Gustabo Pittman documented in this [id number] History of Present illness Narrative* April Jewell [...] 4.2 3.21 11.5 32.5 101 16.8 90 07/07/22 1159 4.0 2.81 9.9 28.4 101 16.2 [...] Gastroenterology Fellow Division of Gastroenterology & Hepatology [facility] 01/12/23, 9:01 AM Associated attestation [...] Gary MD Division of Gastroenterology & Hepatology [facility] documented in this [id number] Instructions* Patient Instructions* Dejuan Lechuga MD - 12/16/2022 10:23 AM EDT [facility] [phone] [address] [facility] [address] Lab tests can be done at a scheduled visit, or by appointment. [facility] [phone] [place] [address] Park in the [facility] (P9) Under the [facility]. Pathology is located in the Special[facility] [place] of the [facility] on the 2nd floor.Please fill out the paper form at the front office spec then have a seat in the Outpatient Blood Draw Lab (Pathology) waiting area. Hours Thursday 07:00 AM - 05:30 PM Thursday 07:00 AM - 05:30 PM Thursday 07:00 AM - 05:30 PM 07:00 AM - 05:30 PM Thursday 07:00 AM - 05:30 PM [facility] [phone] [place] [address] Follow the overhead sign to [place]: Radiology/X-ray & Lab (right arrow). Check in for testing at the Radiology & Lab Set Up Person window. Hours Thursday 10:00 AM - 02:00 PM Thursday 08:00 AM - 07:30 PM Thursday 08:00 AM - 07:30 PM Thursday 08:00 AM - 07:30 PM 08:00 AM - 07:30 PM Thursday 08:00 AM - 07:30 PM Thursday 08:00 AM - 04:00 PM [facility] [phone] [place] [address] [place] at the front office spec and you will be directed to the waiting area. Laboratory staff will takeyou back to the laboratory. Hours Thursday 10:00 AM - 02:00 PM Thursday 07:30 AM - 07:30 PM Thursday 07:30 AM - 07:30 PM Thursday 07:30 AM - 07:30 PM 07:30 AM - 07:30 PM Thursday 07:15 AM - 07:45 PM Thursday 08:00 AM - 04:00 PM [facility] Lab [phone] [place], [place] [id number] Enter through the front door and continue [...] PM Thursday 08:00 AM - 04:00 PM [facility] [phone] [place], [place] [id number] The [facility] is located on the first [...] PM Thursday 07:30 AM - 05:00 PM [facility] Lab [phone] [address] [id number] The [facility] is located on the first floor, room [id number]. Enter through the Emergency doors and follow the signs to Medical Offices , making a right turn. [place] at the Registration 1A desk at the end of the hallway, then proceed to the Laboratory on the right. Hours Thursday 07:30 AM - 05:00 PM Thursday 07:30 AM - 05:00 PM Thursday 07:30 AM - 05:00 PM 07:30 AM - 05:00 PM Thursday 07:30 AM - 05:00 PM [facility] Lab [phone] [place], [place] [id number] The [facility] is located on the first [...] AM - 05:00 PM documented in this [id number] History of Present illness Narrative* Dejuan Lechuga [...] no previous surgical history on file. Diagnostics: [facility] laboratory/diagnostics reviewed and Outside laboratory/diagnostics reviewed [...] of . Aleja Rolon documented in this [id number] History of Present illness Narrative* Theo Burks MD - 12/15/2022 4:20 PM EDT [facility] Medicine Telemedicine Visit CC: Chief Complaint Patient [...] surgical history personally reviewed and updated in [facility]. OBJECTIVE: Sounds ewll, no acute distress Breathing comfrotably on room air ASSESSMENT AND PLAN: 1. Rib pain Orders & Meds Signed During This Encounter X-ray Ribs Left Unilateral (Routine) lidocaine (LIDODERM) 5 % patch Documentation: Mode: Telephone Patient Patient Work Phone: Patient Cell Preferred phone: [phone] Consent: I confirmed patient understanding of the [...] Burks MD Family Medicine documented in this [id number] Telephone encounter Note* Telephone Encounter - Aleja Rolon - 12/15/2022 9:14 AM EDT Called patient and made appointment with tomorrcamille [id number] Miscellaneous Notes* Telephone Encounter - Aleja Rolon - 12/15/2022 9:14 AM EDT Called patient and made appointment with tomorrcamille documented in this [id number] History of Present illness Narrative* Marcello Ibanez [...] Gastroenterology Fellow Division of Gastroenterology & Hepatology [facility] 10/27/22, 10:43 AM * Eze Schilling - 10/27/2022 9:49 AM EST Patient was identified by name and date of . Eze FariaselianaomarPatient at risk for falls:No Falls Risk protocol implemented: No documented in this [id number] History of Present illness Narrative* Haley Gary [...] Gastroenterology Fellow Division of Gastroenterology & Hepatology [facility] 10/27/22, 10:43 AM Attending addendum: [...] Gary MD Division of Gastroenterology & Hepatology [facility] * Eze Schilling - 10/27/2022 9:49 AM EST Patient was identified by name and date of . Eze ShakirPatient at risk for falls:No Falls Risk protocol implemented: No documented in this [id number] History of Present illness Narrative* Haley Gary [...] 7.2 3.0 2.20 7.7 389 56 103 12/08/22 1203 6.4 2.9 2.83 10.6 Comment: Elevated [...] Gastroenterology Fellow Division of Gastroenterology & Hepatology [facility] 10/27/22, 10:43 AM Attending addendum: [...] Gary MD Division of Gastroenterology & Hepatology [facility] * Eze Schilling - 10/27/2022 9:49 AM EST Patient was identified by name and date of . Eze SamanthaomarPatient at risk for falls:No Falls Risk protocol implemented: No documented in this [id number] Telephone encounter Note* Telephone Encounter - Tanika [...] and will need rescheduled. Tanika Arias RN [facility] Work Phone: [phone]) 456-951301-14-2023 Miscellaneous Notes* Telephone Encounter - Tanika Arias [...] rescheduled. Tanika Arias, RN documented in this [id number] History of Present illness Narrative* Theo Burks [...] surgical history personally reviewed and updated in [facility]. OBJECTIVE: There were no vitals taken for this visit. Gen: Sounds well, no acute distress Resp: breathing comfortably ASSESSMENT AND PLAN: 1. Cellulitis, unspecified cellulitis site 2. Muscle soreness Orders & Meds Signed During This Encounter Creatine Kinase Documentation: Mode: Telephone Patient Patient Work Phone: Patient Cell Preferred phone: [phone] Consent: I confirmed patient understanding of the [...] Burks MD Family Medicine documented in this [id number] Instructions* Patient Instructions* Theo Burks MD - 08/25/2022 2:16 PM EST Continue antibiotics for another 7 days Topical antibiotic ointment for left foot Follow up on Thursday Refilled zofran (anti-nausea medication) documented in this [id number] History of Present illness Narrative* Theo Burks [...] Burks MD Family Medicine documented in this [id number] History of Present illness Narrative* Abbey Alvarez [...] hepatology clinic for EtOH cirrhosis. Admitted to [facility] ICU for acute alcoholic hepatitis (MDF [...] B27 positive) 2003 Followed with Rheum at [facility] Open fracture of other and unspecified [...] Gastroenterology Fellow Division of Gastroenterology & Hepatology [facility] 08/25/22, 10:44 AM * Maura Canela - 08/25/2022 10:40 AM EST Patient was identified by name and date of . Maura Canela Patient at risk for falls:No Falls Risk protocol implemented: No documented in this [id number] History of Present illness Narrative* Abbey Alvarez [...] hepatology clinic for EtOH cirrhosis. Admitted to [facility] ICU for acute alcoholic hepatitis (MDF [...] B27 positive) 2003 Followed with Rheum at [facility] Open fracture of other and unspecified [...] Gastroenterology Fellow Division of Gastroenterology & Hepatology [facility] 08/25/22, 10:44 AM * Maura Canela - 08/25/2022 10:40 AM EST Patient was identified by name and date of . Maura Canela Patient at risk for falls:No Falls Risk protocol implemented: No documented in this [id number] History of Present illness Narrative* Abbey Alvarez [...] hepatology clinic for EtOH cirrhosis. Admitted to [facility] ICU for acute alcoholic hepatitis (MDF [...] B27 positive) 2003 Followed with Rheum at [facility] Open fracture of other and unspecified [...] Gastroenterology Fellow Division of Gastroenterology & Hepatology [facility] 08/25/22, 10:44 AM Associated attestation [...] Gary MD Division of Gastroenterology & Hepatology [facility] * Maura Canela - 08/25/2022 10:40 AM EST Patient was identified by name and date of . Maura Canela Patient at risk for falls:No Falls Risk protocol implemented: No documented in this [id number] Note* Addendum Note - Tanvir Black MD - 08/21/2022 8:52 PM ESTAddended by: TANVIR BLACK on: 08/21/2022 08:52 PM Modules accepted: Orders [id number] Miscellaneous Notes* Addendum Note - Tanvir Black MD - 08/21/2022 8:52 PM ESTAddended by: TANVIR BLACK on: 08/21/2022 08:52 PM Modules accepted: Orders documented in this [id number] History of Present illness Narrative* Tanvir Black MD - 08/16/2022 11:07 AM EST Images from the original note were not included. Reviewed urine C&S. Urine growing klebsiella pneumoniae, with intermediate sensitivity to Macrobid. Culture Positive Culture Report Abnormal >100,000 CFU/ml Klebsiella pneumoniae Resulting Agency: [facility] Susceptibility Klebsiella pneumoniae BHAVIN Amoxicillin + Clavulanate [...] Phone numbers Preferred Tanvir Black MD [phone] [phone] Hematology/Oncology 08/16/2022 . documented in this [id number] Hospital Discharge instructions* Discharge Instructions* Dante Marcelino MD - 08/15/2022 3:08 PM EST EMERGENCY DEPARTMENT FOLLOW-UP: Please see your Primary Care Physician at next available appointment for follow up. Please call today or tomorrow to make an appointment. Residents of [facility] may apply for discounts available only to residents of this [facility] by contacting the Eligibility Call Center at [phone]. If you do not have a primary physician please call [phone] for guidance on finding a [facility] provider. [...] during this visit: None documented in this [id number] History of Present illness Narrative* Nenita Franco [...] B27 positive) 2003 Followed with Rheum at [facility] Open fracture of other and unspecified [...] of . Katie Paniagua documented in this [id number] History of Present illness Narrative* Tanvir Black [...] B27 positive) 2003 Followed with Rheum at [facility] Open fracture of other and unspecified [...] Time Provider Department Center 08/19/2022 8:30 AM [facility] OP ULTRASOUND 2 [facility] US [facility] Radiolog 08/19/2022 1:45 PM [facility] OP ULTRASOUND 2 [facility] US [facility] Radiolog 08/28/2022 10:30 AM Saskia Madison APRN-CNP [facility] 09/19/2022 11:00 AM Saskia Madison APRN-CNP [facility] 11/13/2022 11:30 AM Tanvir Black MD [facility] 11/13/2022 12:[address] [facility] Tanvir Black MD Hematology/Oncology 08/14/22 4:09 PM * Jojo Garcia - 08/14/2022 11:52 AM EST .Patient was identified by name and date of . Jojo Garcia .Patient at risk for falls:No Falls Risk protocol implemented: No documented in this [id number] History of Present illness Narrative* Emily Dunn RN - 08/14/2022 2:08 PM EST During this visit the vaccine(s) was: Administered Obtained informed verbal consent from patient/parent/patient petroleum products sales representative for immunization(s) as ordered, questionnaire completed and VIS educational handouts reviewed with patient/parent/patient petroleum products sales representative who denies contraindications and verbalizes understanding of indication, potential side effect and actions to be taken if side effects occur. Double identification of patient completed with patient/parent/patient petroleum products sales representative using name and prior to administration, and patient tolerated immunization(s) administration without incident. * Maura Canela - 08/14/2022 1:08 PM EST Patient was identified by name and date of . Maura MelonieoPatient at risk for falls:No Falls Risk protocol implemented: No * Saskia Madison APRN-PUBLIC POLICY MANAGER - 08/14/2022 1:00 PM EST Images from the original note were not included. Department of Hepatology Patient name: Will Anderson : 1985 Date: 08/14/22 Referring Provider: Tanvir Black MD Subjective Chief Complaint: I had the pleasure of speaking with Will nAderson, for chief complaint of cirrhosis(see problem-baseddocumentation below [...] B27 positive) 2003 Followed with Rheum at [facility] Open fracture of other and unspecified [...] and/or coordination of care. Sincerely, KONRAD Quevedo [facility] Division of Gastroenterology & Hepatology 08/14/22 1:54 PM GI clinic documented in this [id number] History of Present illness Narrative* Emily Dunn RN - 08/14/2022 2:08 PM EST During this visit the vaccine(s) was: Administered Obtained informed verbal consent from patient/parent/patient petroleum products sales representative for immunization(s) as ordered, questionnaire completed and VIS educational handouts reviewed with patient/parent/patient petroleum products sales representative who denies contraindications and verbalizes understanding of indication, potential side effect and actions to be taken if side effects occur. Double identification of patient completed with patient/parent/patient petroleum products sales representative using name and prior to administration, and patient tolerated immunization(s) administration without incident. * Maura Canela - 08/14/2022 1:08 PM EST Patient was identified by name and date of . Maura Foxtient at risk for falls:No Falls Risk protocol implemented: No * Saskia Madison, WHITE WASHER-PUBLIC POLICY MANAGER - 08/14/2022 1:00 PM EST Images from [...] B27 positive) 2003 Followed with Rheum at [facility] Open fracture of other and unspecified [...] and/or coordination of care. Sincerely, KONRAD Quevedo [facility] Division of Gastroenterology & Hepatology 08/15/22 8:19 AM GI clinic documented in this [id number] History of Present illness Narrative* Emily Dunn RN - 08/14/2022 2:08 PM EST During this visit the vaccine(s) was: Administered Obtained informed verbal consent from patient/parent/patient petroleum products sales representative for immunization(s) as ordered, questionnaire completed and VIS educational handouts reviewed with patient/parent/patient petroleum products sales representative who denies contraindications and verbalizes understanding of indication, potential side effect and actions to be taken if side effects occur. Double identification of patient completed with patient/parent/patient petroleum products sales representative using name and prior to administration, and patient tolerated immunization(s) administration without incident. * Maura Caneal - 08/14/2022 1:08 PM EST Patient was [...] B27 positive) 2003 Followed with Rheum at [facility] Open fracture of other and unspecified [...] likely 2/2 hemolytic anemia) -discuss with transplant reservationist, Dr. Gary and arrange for f/u in [...] and/or coordination of care. Sincerely, KONRAD Quevedo [facility] Division of Gastroenterology & Hepatology 08/15/22 8:19 AM GI clinic documented in this [id number] History of Present illness Narrative* Jasmyne Grimaldo [...] clinic. Jasmyne Grimaldo RN documented in this [id number] Instructions* Patient Instructions* Emily Dunn RN - [...] these numbers to schedule your Upper Endoscopy. [facility] [address] [place], [place] [address] [facility] Thursday-Thursday 8A-4P [facility] [address] [place], [place] [id number] Thursday-Thursday 8A-4P [facility]. [address], [place] [id number] Thursday-Thursday 8A-4P Centralized GI Procedure scheduling: UPPER [...] hours, please call to speak to the [facility] nurse industrial organization manager. If you need to cancel this appointment, please call , at least 48 hours before your appointment time. For additional health or procedure preparation information call the [facility] line at . The [facility] line is open 24 hours a day including weekends and holidays. PLEASE BRING IN YOUR INSURANCE CARD AND MEDICATIONS OR LIST OF CURRENT MEDICATIONS. PLEASE LEAVE JEWELRY AT HOME AND DO NOT WEAR HEAVY FRAGRANCE OR NAIL ANGUILLAN WE MAKE EVERY ATTEMPT TO MAINTAIN OUR [...] any problems or questions, please call the [facility] line at [phone]. documented in this [id number] Instructions* Patient Instructions* Emily Dunn RN - [...] these numbers to schedule your Upper Endoscopy. [facility] [address] [place], [place] [id number] [facility] Thursday-Thursday 8A-4P [facility] [address] [place], [place] [id number] Thursday-Thursday-4P [facility]. [address], [place] [id number] Thursday-Thursday 8A-4P Centralized GI Procedure scheduling: UPPER [...] hours, please call to speak to the [facility] nurse industrial organization manager. If you need to cancel this appointment, please call , at least 48 hours before your appointment time. For additional health or procedure preparation information call the [facility] line at . The [facility] line is open 24 hours a day including weekends and holidays. PLEASE BRING IN YOUR INSURANCE CARD AND MEDICATIONS OR LIST OF CURRENT MEDICATIONS. PLEASE LEAVE JEWELRY AT HOME AND DO NOT WEAR HEAVY FRAGRANCE OR NAIL ANGUILLAN WE MAKE EVERY ATTEMPT TO MAINTAIN OUR [...] any problems or questions, please call the [facility] line at [phone]. documented in this [id number] History of Present illness Narrative* Tanvir Black [...] B27 positive) 2003 Followed with Rheum at [facility] Open fracture of other and unspecified [...] Center 08/14/2022 11:30 AM [facility]/14[facility] 12:[address] [facility] 08/14/2022 1:00 PM Saskia Madison APRN-PUBLIC POLICY MANAGER [facility] Tanvir Ella Castillo MD [facility] Hematology/Oncology 05/06/22 4:11 PM * Sally Chavez [...] 100 %. Sally Chavez documented in this [id number] History of Present illness Narrative* Leslie Canela [...] results. Leslie Canela RN documented in this [id number] History of Present illness Narrative* Rosita Le RN - 03/13/2022 12:29 PM EDT Patient was identified by name and date of . 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 Blood obtained via venipuncture from BANNER writn40O 3/4in butterfly needle. Blood specimen sent to lab. Pt tolerated procedure well. Pt verbalized follow up instructions and discharged home in stable condition. Rosita Le RN documented in this [id number] History of Present illness Narrative* Tanvir Black [...] B27 positive) 2003 Followed with Rheum at [facility] Open fracture of other and unspecified [...] to oncologist closer to his home in [facility]. Patientto call back with name of control cabinet assembler and fax number.will keep care here with [...] MAIN CARD TEST-311 Non Inv Card Main [place] 05/06/2022 10:30 AM [facility] 05/06/2022 11:[address] [facility] Tanvir Black MD Hematology/Oncology 03/13/22 5:20 PM * Jojo Garcia - 03/13/2022 11:41 AM EDT .Patient was identified by name and date of . Jojo Garcia .Patient at risk for falls:Yes Falls Risk protocol implemented: No documented in this [id number] Hospital Discharge instructions Patient Education 02/17/2022 16:25:10 [...] care provider. Do not drink alcohol. Take smci-lir-ukpcziu and prescription medicines only as told by [...] 08/24/2006 Document Revised: 05/26/2019 Document Reviewed: 05/26/2019 [employer] Patient Education 2020 [employer]. 02/17/2022 16:25:10 Cellulitis, Adult Cellulitis, Adult Cellulitis [...] Follow these instructions at home: Medicines Take mgbf-hsc-hwwnclv and prescription medicines only as told by [...] such as antibiotic medicines or antihistamines. Take podo-hjy-xgzwzsk and prescription medicines only as told by [...] 06/03/2006 Document Revised: 01/13/2019 Document Reviewed: 01/13/2019 [employer] Patient Education 2020 [employer] 02/17/2022 16:25:10 Hypokalemia Hypokalemia Hypokalemia means [...] hospital. Follow these instructions at home: Take vrrc-kdd-hpkzfnd and prescription medicines only as told by [...] cantaloupe, kiwi, oranges, tomatoes, asparagus, and potatoes. ?[place] juice. ?Tomato juice. ?Red meats. ?Yogurt. Keep [...] 08/24/2006 Document Revised: 04/06/2019 Document Reviewed: 04/06/2019 [employer] Patient Education 2020 [employer]. 02/17/2022 16:25:10 Peripheral Edema Peripheral Edema Peripheral [...] by your health care provider. Medicines Take azfw-xth-mcukykh and prescription medicines only as told by [...] 10/01/2005 Document Revised: 05/18/2019 Document Reviewed: 05/18/2019 [employer] Patient Education 2020 [employer]. Follow Up Care 02/17/2022 12:28:34 With:Milagros Lofton Address:Unknown When:02/20/2022 15:52:54 Comments:Return to the emergency room if your pain gets worse, fever, swelling gets worse or any new symptoms With:Colby Link Address: [address] [place] [address]- Business (1) When:Within 3 Day(s) [facility]06-13-2022 Evaluation + Plan noteExtracted from: Title:ED Note Author:Puja Howell, Christi Field te:02/17/22 1. Pedal edema (R60.0: Local ized edema) 2. Cellulitis of scrotum (N49.2: Inflammatory disorders of scrotum) 3. Thrombocytopenia (D69.6: Thrombocytopenia, unspecified) 4. Hypokalemia (E87.6: Hypokalemia) Orders: clindamycin, 300 mg = 2 cap(s), Oral, QID, # 56 cap(s), Refills(s) 0, Pharmacy: [facility], 170.2, cm, 02/17/22 12:34:00 [...] Charcoal 02/17/22 * Blood Culture Charcoal 02/17/[address] [facility]06-07-2022 Telephone encounter Note* Telephone Encounter - [...] minutes Abhijeet MichelleD, PharmD. Oncology Specialty Pharmacist [id number] Date: 02/11/22 [id number] Miscellaneous Notes* Telephone Encounter - Kulwinder Dozier [...] Kulwinder Dozier PharmD, PharmD. Oncology Specialty Pharmacist [id number] Date: 02/11/22 * Telephone Encounter - Kulwinder Dozier PharmD - 02/11/2022 12:39 PM EDT Images from the original note were not included. [facility] Referral [facility] received a prescription for MMF (Cellcept) for this patient on 02/11/2022. [facility] has been contacted to initiate a Prior Authorization for this medication. This is an immunomodulatory agent Patient Information: Will Anderson is a 36 year old male [id number] [facility] [id number] Insurance on file: [employer] COMMERCIAL ID: [id number] BIN: [id number] PCN: -- Group: [id number] Specialty Medication Medication and dosing: mycophenolate (CELLCEPT) 500 MG tablet- Take 2 tablets by mouth 2 times daily. 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 [...] Grossly icteric; may falsely decrease creatinine 8.2 [facility] Reference Range & Units 01/17/22 07:09 02/11/22 [...] pharmacist once medication is approved. Questions for [facility] may be directed to [phone] option 3. Thank you for the referral, Kulwinder Dozier PharmD Oncology Specialty Pharmacist [phone] documented in this [id number] Telephone encounter Note* Telephone Encounter - Kulwinder Dozier PharmD - 02/11/2022 12:39 PM EDT Images from the original note were not included. [facility] Referral [facility] received a prescription for MMF (Cellcept) for this patient on 02/11/2022. [facility] has been contacted to initiate a Prior Authorization for this medication. This is an immunomodulatory agent Patient Information: Will Anderson is a 36 year old male [id number] [facility] [id number] Insurance on file: [employer] COMMERCIAL ID: [id number] BIN: [id number] PCN: -- Group: [id number] Specialty Medication Medication and dosing: mycophenolate (CELLCEPT) 500 MG tablet- Take 2 tablets by mouth 2 times daily. 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 [...] pharmacist once medication is approved. Questions for [facility] may be directed to [phone] option 3. Thank you for the referral, Kulwinder Dozier PharmD Oncology Specialty Pharmacist [phone] [id number] History of Present illness Narrative* Cyn Hopper RN - 02/11/2022 11:45 AM EDT Patient was identified by name and date of . Cyn Hopper RN Patient at risk for falls:No Falls Risk protocol implemented: No 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) [133808] Pt arrived to clinic for MDVS and labs. Blood obtained via venipuncture from RAC using 23G 3/4in butterfly needle. Blood specimen sent to lab. Pt tolerated procedure well, dressing applied. AVS provided and reviewed. Pt verbalized follow up instructions and discharged home in stable condition. Cyn Hopper RN documented in this [id number] Miscellaneous Notes* Telephone Encounter - Liseth Santana [...] patient 2. [place] [id number] (Pharmacy Prior Authorization [place]) Patient advised to follow up with provider's office if they have any further questions or if no answer after 3 business days. Providers office is to contact patient to advise of medication changes/next steps documented in this [id number] Miscellaneous Notes* Care Plan Note - Rosa [...] Adequate for Discharge 01/17/2022 1626 by Rosa eMnsah RN Outcome: Progressing 01/17/2022 1625 by Rosa [...] from complications of withdrawal 01/17/2022 1626 by Hayba, Rosa, RN Outcome: Progressing 01/17/2022 1625 by Rosa [...] RNF BARRIERS TO PLAN OF CARE: None SHEET METAL JOURNEYMAN RN Jessee Callahan RN DAY SHIFT RN [...] was yellow x 1 day. While at [facility], patient was HDS, however noted with significant bru ising and edema of LUE. Reportedly, trauma surgery was consulted at [facility] and there was initially concern for compartment syndrome and fasciotomy was considered, but ultimately did not occur at the time. The trauma attending Dr. Du recommended orthopedic consultation upon arrival to the [facility] MICU. While at [facility] labs significant for indirect hyperbilirubinemia, and acute macrocytic anemia 6.9 requiring 1u pRBC and [address] Abd/Pelvis W/ Contrast showed liver cirrhosis and steatosis without CBD dilation. Received morphine, ceftriaxone, protonix, thiamine. Started on NS for rhabdo. Patient transferred to [facility] for tertiary center care. While in the [facility] MICU, Ortho following - request MR [...] (PRN) Note: Family updated ? Transfer to [facility] soon- weaning precidex off Sw/hospice case manager for dc concerns Problem: Safety: Goal: Free [...] OF CARE: BARRIERS TO PLAN OF CARE: SHEET METAL JOURNEYMAN RN: Bharat Callahan DAY SHIFT RN: Meli Keane * 1:1 Interaction - Keo Gaona MD - 01/14/2022 7:42 AM EDT Images from the original note were not included. SECLUSION/RESTRAINTS PROVIDER CCFY-SS-AQNU EVALUATION NOTE Will Anderson was evaluated on [...] additional home-going needs (PRN) Note: Family updates Sw/hospice case manager as needed Problem: Safety: Goal: Free from [...] none BARRIERS TO PLAN OF CARE: none SHEET METAL JOURNEYMAN IRENA Unger RN DAY SHIFT IRENA Graham RN * 1:1 Interaction - Hannah Leggett MD - 01/13/2022 4:30 AM EDT Images from the original note were not included. SECLUSION/RESTRAINTS PROVIDER IPCU-UT-MAQJ EVALUATION NOTE Will Anderson was evaluated on [...] None BARRIERS TO PLAN OF CARE: None SHEET METAL JOURNEYMAN RN : Elsa Jenkins RN DAY SHIFT [...] original note were not included. SECLUSION/RESTRAINTS PROVIDER AOCH-GH-FPNW EVALUATION NOTE Will Anderson was evaluated on [...] none BARRIERS TO PLAN OF CARE: none SHEET METAL JOURNEYMAN IRENA Canales DAY SHIFT IRENA Childers * 1:1 Interaction - Hannah Leggett MD - 01/11/2022 1:39 AM EDT Images from the original note were not included. SECLUSION/RESTRAINTS PROVIDER BTGT-UJ-MWBQ EVALUATION NOTE Will Anderson was evaluated on [...] remain still for MRI. Dr. Antoinette montero. SHEET METAL JOURNEYMAN IRENA Jameson DAY SHIFT IRENA Childers * 1:1 Interaction - Abhinav De La Vega DO - 01/10/2022 2:31 PM EDT SECLUSION/RESTRAINTS PROVIDER UWKB-XJ-OCNH EVALUATION NOTE Will Anderson was evaluated on [...] original note were not included. SECLUSION/RESTRAINTS PROVIDER HIPY-AM-DFKX EVALUATION NOTE Will Anderson was evaluated on [...] were discussed with the patient and/or legal petroleum products sales representative. The risks, benefits and alternatives were reviewed. Questions regarding blood transfusions were answered. The patient /or the patient s legal petroleum products sales representative agree with the plan for transfusion [...] - 01/09/2022 9:02 AM EDT SECLUSION/RESTRAINTS PROVIDER KHSN-YN-MVBU EVALUATION NOTE Will Anderson was evaluated on [...] original note were not included. SECLUSION/RESTRAINTS PROVIDER WMXA-VG-LVRR EVALUATION NOTE Will Anderson was evaluated on [...] - 01/08/2022 10:46 PM EDT SECLUSION/RESTRAINTS PROVIDER VDEJ-OB-TFJW EVALUATION NOTE Will Anderson was evaluated on [...] of harm to self documented in this [id number] Hospital course Narrative* Afua Umanzor MD - 01/17/2022 3:31 PM EDT Images from the original note were not included. DISCHARGE SUMMARY [facility] [address] [place] [address] Will Anderson Date of : 1985 36 [...] Referral Type: Service Level Authorization Referral Location: [facility] ORTHO HAND Number of Visits Requested: 3 Expiration Date: 01/17/23 HEMATOLOGY SERVICE REQUEST Referral Priority: Routine Referral Type: Service Level Authorization Referral Location: [facility] HEMATOLOGY Number of Visits Requested: 3 Expiration Date: 01/17/23 LIVER SERVICE REQUEST Referral Priority: Routine Referral Type: Service Level Authorization Referral Location: [facility] LIVER Number of Visits Requested: 3 Expiration Date: 01/17/23 Future Appointments Date Time Provider Department Center 01/20/2022 11:00 AM Abbey Alvarez MD [facility] 01/23/2022 11:45 AM Ronen Welch MD [facility] ORTHO [facility] 02/11/2022 10:00 AM [facility] Condition at Discharge Improved Activity [...] bilirubin may falsely lower creatinine 169 63 521 39 2658 6.4 2.6 2.10 11.1 Comment: Elevated bilirubin [...] followed by pain. He was seen at [facility] [place] and transferred to ICU He was found [...] he will get assistance from rehab in [place] for alcohol abuse. On the day of discharge, patient was stable. Left arm swelling was improving. He has good peripheral pulses in the left arm. He is alert and oriented x3. CVS - systolic murmur, lungs - clear to auscultation, abdomen - soft, nontender, ARTIFICIAL TEETH INSPECTOR - alert, moving all extremities. Current Discharge [...] follow-up Afua umanzor MD documented in this [id number] History of Present illness Narrative* Kennedi Best [...] ETOH resources. Pt declines assistance. RAI Claudio, FIRMWARE ARCHITECT-S [phone] * Afua Umanzor MD - 01/16/2022 8:18 AM EDT Images from the original note were not included. GENERAL MEDICAL FLOOR DAILY PROGRESS NOTE Will Anderson [id number] 1045/01/16/2022 Length of stay: 8 day(s) SUBJECTIVE: [...] may falsely lower creatinine 124 69 93 01/15/22326 6.5 2.6 2.10 10.8 Comment: Elevated [...] ATTENDING NOTE LEON SANTANA MD - PIN [id number] I saw and evaluated the patient. I [...] Bili Alk Phos ALT AST Amylase Lipase 01/15/227 6.5 2.6 2.10 10.8 Comment: Elevated [...] 110 24.4 67 01/13/22 025 2.05 01/12/22 1655 7.8 1.73 6.6 19.5 [...] Director, Pulmonary, Critical Care and Sleep Medicine [facility] * Reanna Doyle, [facility] [...] from the original note were not included. [facility] Medical Intensive Care Unit Critical Care Progress Note Will Anderson 36 year old [id number] lbs MRN/Room: [id number]/CP3-303/1 Length of stay: 7 day(s) Summary 36M [...] was yellow x 1 day. While at [facility], patient was HDS, however noted with significant bru ising and edema of LUE. Reportedly, trauma surgery was consulted at [facility] and there was initially concern for compartment syndrome and fasciotomy was considered, but ultimately did not occur at the time. The trauma attending Dr. Du recommended orthopedic consultation upon arrival to the [facility] MICU. While at [facility] labs significant for indirect hyperbilirubinemia, and acute macrocytic anemia 6.9 requiring 1u pRBC and [address] Abd/Pelvis W/ Contrast showed liver cirrhosis and steatosis without CBD dilation. Received morphine, ceftriaxone, protonix, thiamine. Started on NS for rhabdo. Patient transferred to [facility] for tertiary center care. While in the [facility] MICU, Ortho following - request MR [...] 21.1 113 24.4 74 01/15/22 032 1.89 01/14/22 035 7.3 1.91 7.3 21.3 [...] No overt [facility]. 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 MICU ATTENDING NOTE LEON SANTANA MD - PIN [id number] I saw and evaluated the patient. I [...] medical issues requiring critical care management include: ARTIFICIAL TEETH INSPECTOR FAILURE. HEPATIC FAILURE . Additional findings and [...] 1.0 01/12/22 1655 74.0 3 8.0 12.0 01/12/22339 66.4 20.7 [...] Director, Pulmonary, Critical Care and Sleep Medicine [facility] * Keo Gaona MD - 01/14/2022 7:42 AM EDT Images from the original note were not included. [facility] Medical Intensive Care Unit Critical Care Progress Note Will Anderson 36 year old 136.685 lbs MRN/Room: [id number]/CP3-303/1 Length of stay: 6 day(s) Summary 36M [...] was yellow x 1 day. While at [facility], patient was HDS, however noted with significant bru ising and edema of LUE. Reportedly, trauma surgery was consulted at [facility] and there was initially concern for compartment syndrome and fasciotomy was considered, but ultimately did not occur at the time. The trauma attending Dr. Du recommended orthopedic consultation upon arrival to the [facility] MICU. While at [facility] labs significant for indirect hyperbilirubinemia, and acute macrocytic anemia 6.9 requiring 1u pRBC and [address] Abd/Pelvis W/ Contrast showed liver cirrhosis and steatosis without CBD dilation. Received morphine, ceftriaxone, protonix, thiamine. Started on NS for rhabdo. Patient transferred to [facility] for tertiary center care. While in the [facility] MICU, Ortho following - request MR [...] Gap Glu BUN Cr Ca Mg PO4 01/14/225 136 3.4 101 27 11 136 [...] may falsely lower creatinine 95 57 143 01/10/223 6.0 2.7 2.60 11.1 Comment: Elevated [...] improving with IV hydration Hyperbilirubinemia worsening since Paulino-Miner. DDx favors hemolysis - could be from [...] No overt GIB. 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 [facility] Medical Intensive Care Unit Critical Care Progress Note Will Anderson 36 year old [id number] lbs MRN/Room: [id number]/3-303/1 Length of stay: 5 day(s) Summary 36M [...] was yellow x 1 day. While at [facility], patient was HDS, however noted with significant bru ising and edema of LUE. Reportedly, trauma surgery was consulted at [facility] and there was initially concern for compartment syndrome and fasciotomy was considered, but ultimately did not occur at the time. The trauma attending Dr. Du recommended orthopedic consultation upon arrival to the [facility] MICU. While at [facility] labs significant for indirect hyperbilirubinemia, and acute macrocytic anemia 6.9 requiring 1u pRBC and [address] Abd/Pelvis W/ Contrast showed liver cirrhosis and steatosis without CBD dilation. Received morphine, ceftriaxone, protonix, thiamine. Started on NS for rhabdo. Patient transferred to [facility] for tertiary center care. While in the [facility] MICU, Ortho following - request MR [...] -- -- 88 18 90 % -- 01/13/22599 136/70 -- -- 84 17 93 % [...] Notified IRENA NICHOLAS MD 01/13/22 0255 140 05/08/22 2217 140 INR (no units) Date Value [...] improving with IV hydration Hyperbilirubinemia worsening since Paulino-Miner. DDx favors hemolysis - could be from [...] No overt GIB. 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 MICU ATTENDING NOTE LEON SANTANA MD - PIN [id number] I saw and evaluated the patient. I [...] management include: ACUTE BLOOD LOSS ANEMIA and ARTIFICIAL TEETH INSPECTOR FAILURE. HEPATIC FAILURE . Additional findings and [...] Director, Pulmonary, Critical Care and Sleep Medicine [facility] * Codi Thurman LSW - 01/13/2022 9:49 AM EDT ICU Note: SW continues to follow for positive screen for low risk suicide and abuse. SW spoke with bedside RN who reported pt alert but drowsy. SW to follow up with pt to attempt to address. SARAH Kelley Care Coordination Department 10:59 AM Addendum: MARLON met with pt at bedside. Pt sleeping [...] ATTENDING NOTE LEON SANTANA MD - PIN [id number] I saw and evaluated the patient. I [...] management include: ACUTE BLOOD LOSS ANEMIA and ARTIFICIAL TEETH INSPECTOR FAILURE, HEPATIC FAILURE. Additional findings and notation: [...] Alk Phos ALT AST Amylase Lipase 01/12/22 034 6.4 2.6 2.10 11.1 Comment: [...] Director, Pulmonary, Critical Care and Sleep Medicine [facility] * Keo Gaona MD - 01/12/2022 8:32 AM EDT Images from the original note were not included. [facility] Intensive Care Unit Critical Care Progress Note Will Anderson 36 year old 149.22203 lbs MRN/Room: [id number]/[facility]-303/1 Length of stay: 4 day(s) Summary 36M [...] was yellow x 1 day. While at [facility], patient was HDS, however noted with significant bru ising and edema of LUE. Reportedly, trauma surgery was consulted at [facility] and there was initially concern for compartment syndrome and fasciotomy was considered, but ultimately did not occur at the time. The trauma attending Dr. Du recommended orthopedic consultation upon arrival to the [facility] MICU. While at [facility] labs significant for indirect hyperbilirubinemia, and acute macrocytic anemia 6.9 requiring 1u pRBC and [address] Abd/Pelvis W/ Contrast showed liver cirrhosis and steatosis without CBD dilation. Received morphine, ceftriaxone, protonix, thiamine. Started on NS for rhabdo. Patient transferred to [facility] for tertiary center care. While in the [facility] MICU, Ortho following - request MR [...] -- -- -- -- Room air 01/12/22 07 -- 98.3 F (36.8 C) Axillary -- [...] improving with IV hydration Hyperbilirubinemia worsening since Paulino-Miner. 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 [facility] Medical Intensive Care Unit Critical Care Progress Note Will Anderson 36 year old 151.55559 lbs MRN/Room: [id number]/CP3-139/1 Length of stay: 3 day(s) Summary 36M [...] was yellow x 1 day. While at [facility], patient was HDS, however noted with significant bru ising and edema of LUE. Reportedly, trauma surgery was consulted at [facility] and there was initially concern for compartment syndrome and fasciotomy was considered, but ultimately did not occur at the time. The trauma attending Dr. Du recommended orthopedic consultation upon arrival to the [facility] MICU. While at [facility] labs significant for indirect hyperbilirubinemia, and acute macrocytic anemia 6.9 requiring 1u pRBC and [address] Abd/Pelvis W/ Contrast showed liver cirrhosis and steatosis without CBD dilation. Received morphine, ceftriaxone, protonix, thiamine. Started on NS for rhabdo. Patient transferred to [facility] for tertiary center care. While in the [facility] MICU, Ortho following - request MR [...] Gap Glu BUN Cr Ca Mg PO4 05/07/22 011 133 3.4 101 25 10 149 [...] improving with IV hydration Hyperbilirubinemia worsening since Paulino-Miner. 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 I [...] 1131 75.3 12.7 10.6 0.1 1.2 01/10/22 035 72.9 15.4 9.7 0.6 1.4 01/09/22 1722 [...] Director, Pulmonary, Critical Care and Sleep Medicine [facility] * Candido Lerner MD - [...] and 1u FFP and was transfered to [facility]ICU for further management. On (01/08) PM [...] Candido Lerner MD Hematology- Oncology PGY-V Pager [phone] Associated attestation - Rd Weaver MD - [...] with GI attending, Dr. Haley Gary MD ([id number]) and Ulysses Solomon MD. Primary team updated via Balloon secure chat. We will sign off but please don't hesitate to reach out with questions or concerns. Abbey Alvarez MD Gastroenterology Fellow Personal Pager [phone] GI Consult Pager (nights and weekends) [phone] * Francisco Marino MD - 01/10/2022 9:13 AM EDT MICU ATTENDING NOTE FRANCISCO MARINO MD - PIN [id number] I saw and evaluated the patient. I [...] ACUTE BLOOD LOSS ANEMIA, HEPATIC FAILURE, and ARTIFICIAL TEETH INSPECTOR FAILURE. Additional findings and notation: Will Anderson is a 36 year old male with PMH of EtOH dependence who presented with 2 days of L arm pain to [facility] ED. 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 Pulmonary, Critical Care and Sleep Medicine [facility] * De La VegaAbhinav, - 01/10/2022 7:16 AM EDT Images from the original note were not included. [facility] Intensive Care Unit Critical Care Progress Note Will Anderson 36 year old 150.35455 lbs MRN/Room: [id number]/[facility]139/1 Length of stay: 2 day(s) Summary 36M [...] was yellow x 1 day. While at [facility], patient was HDS, however noted with significant bru ising and edema of LUE. Reportedly, trauma surgery was consulted at [facility] and there was initially concern for compartment syndrome and fasciotomy was considered, but ultimately did not occur at the time. The trauma attending Dr. Du recommended orthopedic consultation upon arrival to the [facility] MICU. While at [facility] labs significant for indirect hyperbilirubinemia, and acute macrocytic anemia 6.9 requiring 1u pRBC and [address] Abd/Pelvis W/ Contrast showed liver cirrhosis and steatosis without CBD dilation. Received morphine, ceftriaxone, protonix, thiamine. Started on NS for rhabdo. Patient transferred to [facility] for tertiary center care. 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 DDx favors hemolysis [...] No overt GIB. s/p 1u pRBC from [facility], did not increment appropriately - only 6.9 [...] (deescalation of antibiotics): Ceftriaxone Social- Dad Rich [phone] and mom Code Status: Full Code Dispo: MICU Plan is preliminary until discussed with attending Abhinav De La Vega DO PGY-2 [phone] (click to text page) * Bang Jameson [...] ATTENDING NOTE FRANCISCO MARINO MD - PIN [phone] I saw and evaluated the patient. I [...] ACUTE BLOOD LOSS ANEMIA, HEPATIC FAILURE, and ARTIFICIAL TEETH INSPECTOR FAILURE. Additional findings and notation: Will Anderson is a 36 year old male with PMH of EtOH dependence who presented with 2 days of L arm pain to [facility] ED. 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 Pulmonary, Critical Care and Sleep Medicine [facility] * Nasrin Smith RN - [...] No BARRIERS TO PLAN OF CARE: No SHEET METAL JOURNEYMAN IRENA Gomez DAY SHIFT RN Mary * Codi Thurman LSW - 01/09/2022 9:47 AM EDT Admission Screen Consult: SW aware of social concern per quality internship screen for positive screen for low risk suicide and abuse. Pt is currently confused, restrained and unable to participate in conversation at this time. SW will follow up with pt to address as appropriate. SARAH Kelley Care Coordination Department * Ivy Chua MD - 01/09/2022 7:34 AM EDT Images from the original note were not included. [facility] Medical Intensive Care Unit Critical Care Progress Note Will Anderson 36 year old 149.6925 lbs MRN/Room: [id number]/CP3-139/1 Length of stay: 1 day(s) Summary 36M [...] skin was yellow x 1 day. At [facility], pt was HDS. Noted with significant bruising and edema of LUE. Reportedly, trauma surgery was consulted at [facility] and there was initially concern for compartment syndrome and fasciotomy was considered, but ultimately did not occur at the time. The trauma attending Dr. Du recommended orthopedic consultation upon arrival to the [facility] MICU. Labs significantfor indirect hyperbilirubinemia, acute macrocytic anemia 6.9. CT abd/pel with contrast showed livercirrhosis and steatosis; no CBD dilation. Received morphine, ceftriaxone, protonix, thiamine. Received 1u pRBC and 1u FFP at [facility]. Started on NS for rhabdo. Transferred to [facility] for tertiary center care. Ortho following - request MR Nadia cohen for assessment of possible complete vs partial [...] Hct MCV RDW Plt PT aPTT INR 01/09/228 3.8 1.84 6.7 19.0 103 23.3 52 [...] INR #Suspected EtOH cirrhosis -hyperbili worsening since Paulino-Miner. DDx favors hemolysis - could be from [...] for overt GIB -s/p 1u pRBC from [facility], did not increment appropriately - [...] not reliable given recent pRBC infusion at [facility] - Large bore PIVs -transfuse Hb <7 [...] (deescalation of antibiotics): ctx Social- dad Rich [phone] and mom Code Status: Full Code Dispo: MICU Staffed with attending mechanical manufacturing engineer Dr. Marino. Ivy Chua MD Internal Medicine [...] n/a BARRIERS TO PLAN OF CARE: n/a SHEET METAL JOURNEYMAN RN DAY SHIFT RN Chao * Lisa Macedo - 01/08/2022 1:33 PM EDT [facility] Spiritual Care Services Services provided for: Patient and Family Services initiated by: Staff Coke Burner Reason for services: Initial visit Narrative: Coke Burner knocked and entered patient's room to introduce self and share availability of spiritual care. Patient was sitting up in bed, awake and alert, visiting with his parents. Patient was polite and appreciative of visit but stated he had no spiritual care needs at this time. Interventions: Introduction of service Outcome: Patient aware of keg filler availability Plan of Care: Follow-up not anticipated Lisa Macedo MDiv Staff Coke Burner, (she/her/hers) Ext: [phone] Pager: [phone] documented in this [id number] Consult note* Keith Bolivar, OT - 01/16/2022 [...] Dep Max Mod Min CG CS DS UT I Set-Up Cues Comment Feeding x Meal [...] With Patients permission ordered no equipment via Balloon Order. If any questions contact [facility] DME Provider at [phone]. 6 Clicks Daily Activity OT 01/16/2022 Help [...] Guard Assist/Supervision 4 - Non = Modified [place]/Independent ASSESSMENT: ASSESSMENT: Will Anderson is performing functional [...] NA = Not Assessed, I = Independent, UT = Modified Independent, Sup = Supervised, Set [...] Dep Max Mod Min CG CS DS UT I Comment Roll to right sidelying x [...] With Patients permission ordered no equipment via Balloon Order. If any questions contact [facility] DME Provider at [phone]. 6 Clicks Basic Mobility PT 01/16/2022 Difficulty [...] NA = Not Assessed, I = Independent, UT = Modified Independent, Sup = Supervised, Set [...] Dep Max Mod Min CG CS DS UT I Comment Rolling x Supine<>sit x Sitting trial x Transfer x Sit<>stand x Without an assistive device. Standing trial x x2 minutes in unsupported static standing. Ambulation x 400 feet without an assistive device. Pt demonstrated step-through gait pattern with improved steadiness with continued practice. Stairs x 12 stairs with unilateral rail. Pt negotiated stairs with a tlow-oaci-ywil pattern. Education: Instructed pt in roles of [...] Guard Assist/Supervision 4 - Non = Modified [place]/Independent Pt resting in recliner at end of [...] Clinical Specialist in Neurologic Physical Therapy Pager: [phone] AAROM = active assisted range of motion [...] % Nutrition Focused Physical Exam Muscle loss: [place] region: mild depression Clavicle region: visible but [...] 5/9 1440 ml Est needs: current wt [id number] kcal/d 30-35 kcal/kg 95 g pro/d 1.5 [...] as mentation allows Mehreen Raza MS RD [facility] Pager [phone] () Dietitian industrial organization manager (7a-7p) pager: [phone] * Chioma Butler, KIYA - 01/14/2022 12:23 [...] joint effusion. 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 Followed with Rheum at [facility] Open fracture of other and unspecified [...] wrapped, (R) hand bruising and dorsal edema, surgical supplies sterilizer, Pulse Oximeter, IV, Flexiseal, male External Catheter [...] Dep Max Mod Min CG CS DS UT I Set-Up Comment Feeding x x +Corpak, [...] Dep Max Mod Min CG CS DS UT I Set-Up Comment Toilet Transfers x Anticipate [...] improves Cognition: Orientation: Oriented to person Place: [facility] Current Date: 01/16/85 Asked pt to state year: 2021 Follows Commands: one step commands, requires occasional repeat of directions and easily distracted Attention: difficulty with divided attention, easily distracted during task and difficulty with alternating attention Memory: Impaired - recalls incident POLICY SERVICE COORDINATOR Problem Solving: Impaired Safety/Judgement: requires cues for [...] With Patients permission ordered no equipment via Balloon Order. If any questions contact [facility] DME Provider at [phone]. 3 Clicks Daily Activity OT 01/14/2022 Help from [...] Guard Assist/Supervision 4 - Non = Modified [place]/Independent ASSESSMENT: Recommend further therapy services in an [...] NA = Not Assessed, I = Independent, UT = Modified Independent, Sup = Supervised, Set [...] acute alcoholic hepatitis/Cirrhosis/Encp[ja;p[atju, suspected ETOH cirrhosis, indirect eecsoprgygxwgew7hqg, jaundice, elevated INR, thrombocytopenia, hyponatremia, rabdomyolysis Precautions: [...] B27 positive) 2003 Followed with Rheum at [facility] Open fracture of other and unspecified [...] Patient Identified Goal(s):agreeable to work with therapy 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 If any questions contact [facility] DME Provider at [phone]. 6 Clicks Basic Mobility PT 01/14/2022 Difficulty [...] acute alcoholic hepatitis/Cirrhosis/Encp[ja;p[atju, suspected ETOH cirrhosis, indirect qvkkpmpfvrhxkfe5opv, jaundice, elevated INR, thrombocytopenia, hyponatremia, rabdomyolysis Pt [...] NA = Not Assessed, I = Independent, UT = Modified Independent, Sup = Supervised, Set [...] and 1u FFP and was transfered to [facility]- ICU for further management. On (01/08) [...] B27 positive) 2003 Followed with Rheum at [facility] Open fracture of other and unspecified [...] and 1u FFP and was transfered to [facility]- ICU for further management. On (01/08) [...] Candido Lerner MD Hematology- Oncology PGY-V Pager [phone] Associated attestation - Rd Weaver MD - [...] and copper levels Mehreen Raza MS, RD [facility] Pager [phone] () Dietitian industrial organization manager (7a-7p) pager: [phone] * Robert Allen MD - 01/08/2022 5:01 [...] the entire UE, causing him present to [facility] ED. While in the ED, the pt was noticed to be jaundiced and was found to be in acute liver failure. He was transferred to [facility] MICU for escalation of care. Ortho [...] injection, 1 mg, Intravenous Push, Daily, Ivy Chau MD, 1 mg at 01/08/22 1649 vitamin [...] Mcmullen DO and will be discussed with industrial organization manager ortho hand attending. Dr. Welch. Robert Allen MD HÉCTOR Orthopaedic Surgery, PGY 2 Pager [phone] After 5 pm and on weekends, please page the on-call resident ([phone]) with questions or concerns. 01/08/22 This consult was seen and staffed within 30 minutes of the initial consult. * Abbey Alvarez MD - 01/08/2022 9:22 AM EDT Associated Order(s): IP GASTROENTEROLOGY CONSULT Images from the original note were not included. Department of Gastroenterology and Hepatology Consult H&P Note GI Attending Physician: Dr. Ulysses Solomon MD Patient: Will Anderson Location: [address] Reason for Consult: GI bleed, hyperbilirubinemia HPI Will Anderson is a 36 year old male with history notable for EtOH use disorder, tobacco use disorder for whom gastroenterology was consulted for GI bleed and hyperbilirubinemia. Patient is admitted to MICU as a transfer from [facility] where he initially presented for [...] multi vitamin, zinc, thiamine and folate supplementation. [facility] assessors for alcohol withdrawal - Start daily [...] continue to follow with you. Personal Pager [phone] GI Consult Pager (nights and weekends) [phone] Abbey Alvarez MD Gastroenterology Fellow Division of Gastroenterology & Hepatology [facility] 01/08/22 Associated attestation - Ulysses [...] varices. Ulysses Solomon MD documented in this [id number] Hospital Discharge instructions* Instructions* Rosa Mensah RN [...] is right for you. Copyright Copyright 2020 [employer]. and its affiliates and/or licensors. All rights [...] you to see other specialists, such as [facility] doctor, psychiatrist, social media manager, or alcohol counselor. Stay sober. Get involved [...] irritable. Where can I learn more? National Ernul of Alcohol Abuse and Alcoholism http://www.niaaa.nih.gov/alcohol-health/rikplihn-vgudjys-ycuxoeekfzt/alcohol-use -disorders National Health Service https://www.nhs.uk/conditions/alcohol-misuse/ Substance Abuse and Mental Health Services Administration https://www.[facility] medical centera.gov/find-help/national-helpline Last Reviewed Date 2017-12-02 Consumer [...] is right for you. Copyright Copyright 2020 [employer]. and its affiliates and/or licensors. All rights reserved. Patient Education Alcohol Use ? When Is Drinking a Problem? The Basics Written by the doctors and editors at [employer] How do I know if I am [...] a counselor (such as a psychologist, social media manager, or psychiatrist) Take medicines Take part in [...] process is complete. This topic retrieved from [employer] on: Apr 04, 2020. Topic 41722 Version 9.0 Release: 28.4.6 - C28.294 2019 [employer] and/or its affiliates. All rights reserved. figure [...] and your health. Available at: http://rethinkingdrinking.niaaa.nih.gov. Graphic 28967 Version 1828.0 Consumer Information Use and Disclaimer [...] that is right for you.The use of [employer] content is governed by the [employer] Terms of Use. 2019 [employer]. All rights reserved. Copyright 2020 [employer] and/or its affiliates. All rights reserved. Patient [...] weights; are a rock climber, skier, gymnast, senior java engineer, or pump tender; or do other sports What are the [...] playing sports. Where can I learn more? Citizen Of [place] [employer] https://orthoinfo.aaos.org/en/diseases--conditions/tgfcxu-hevvdd-xhgq-at-the-elb ow Last Reviewed Date 2018-06-01 Consumer Information [...] is right for you. Copyright Copyright 2020 [employer] and its affiliates and/or licensors. All rights [...] listed above. After business hours please call [facility] barrel lathe operator at and ask for the orthopeadicresident industrial organization manager. For emergencies call [phone]. [facility] Upper Extremity and Hand Surgery Darci Allen, MD Enrique Ornelas, MD Poncho Devlin, MD Pool Villalobos, WHITE WASHER-DAYAMI Muhammad, MD Saroj Mojica, MD Ulysses Roper, MD Stacy Romero, MD Ella Sawyer, PAOmarC Crow Milan, MD Michael Tam, MD Татьяна Lorenz, PAOmarC Orthopaedic Surgery Nurse [...] is right for you. Copyright Copyright 2020 [employer]. and its affiliates and/or licensors. All rights [...] is right for you. Copyright Copyright 2020 [employer]. and its affiliates and/or licensors. All rights reserved. Patient Education Autoimmune Hemolytic Anemia The Basics Written by the doctors and editors at [employer] What is autoimmune hemolytic anemia? -- Autoimmune [...] process is complete. This topic retrieved from [employer] on: Apr 04, 2020. Topic 79683 Version 9.0 Release: 28.4.6 - C28.294 2019 [employer] and/or its affiliates. All rights reserved. Consumer [...] that is right for you.The use of [employer] content is governed by the [employer] Terms of Use. 2019 [employer]. All rights reserved. Copyright 2020 [employer] and/or its affiliates. All rights reserved. documented in this [id number] History and physical note* Francisco Marino MD - 01/08/2022 2:02 PM EDT MICU ATTENDING NOTE FRANCISCO MARINO MD - PIN [id number] I saw and evaluated the patient. I [...] 2 days of L arm pain to [facility] ED. 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 Pulmonary, Critical Care and Sleep Medicine [facility] * Ivy Chua MD - 01/08/2022 8:50 AM EDT [facility] Medical Intensive Care Unit History and Physical Examination Will Anderson 36 year old 0 lbs MRN/Room: [id number]/CP3-139/1 Admit Date: 01/08/2022 : 1985 PCP Contact: [...] and examined upon arrival to MICU at [facility]. Pt states he was working on [...] of aleve every morning for pain. At [facility], presenting VS were 36.3C/HR 105/RR18/BP 145/68/ SpO2 98% on room air. Ht 170.18cm,wt 75kg. received morphine, ceftriaxone, protonix, thiamine. Received 1u pRBC and 1u FFP at [facility]. Started on NS @ 150cc/h. Reportedly, trauma surgery was consulted at [facility] and there was initially concern for compartment syndrome and fasciotomy was considered, but ultimately did not occur at the time. The trauma attending Dr. Du recommended orthopedic consultation upon arrival to the [facility] MICU. Labs at [facility] Alk phos [...] Plt 63 MCV 108 Neutrophils 44.8% Per Meet ED note, 08/2020 Hb was 16.3 CK [...] ---> and please see images uploaded to [employer]. Resident's Assessment/Plan: Will Anderson is a 36 [...] Code Status: Full Code Staffed with attending mechanical manufacturing engineer Dr. Marino. Ivy Chua MD Internal Medicine PGY-3 documented in this [id number] Evaluation + Plan note Extracted from: Title:Admission [...] immediate surgery. Patient waiting for bed at [facility] Patient received vitamin K, 1 unit [...] tertiary center. Patient waiting for bed at [facility] Acute pancreatitis CT abdomen showed mild [...] made to ensure accuracy, however, inadvertently computerized sales management intern mistakes may be present. Dr. Aldair Galiciaer [...] - Full Vital Signs Weight Addendum by Duane Thorpe MDinder Gentry on January 07, 2022 18:44:[address] [facility] Future Appointments Appointment Date:03/16/2023 11:00:00 AM Scheduled Provider:Teddy Hitchcock MD [facility] Appointment Type:WC Follow Up Visit (FT) [facility] + Plan note Future Appointments Appointment Date:03/30/2023 11:00:00 AM Scheduled Provider:Teddy Hitchcock MD [facility] Appointment Type:WC Follow Up Visit (FT) [facility] + Plan note Future Appointments Appointment Date:04/16/2023 12:00:00 PM Scheduled Provider: [facility] Type:US Duplex Procedures (FT) Appointment Date:04/23/2023 10:15:00 AM Scheduled Provider:Teddy Hitchcock MD [facility] Appointment Type:WC Follow Up Visit (FT) Future Scheduled Tests Radiology* US PVR Lower EXT Complete Bilat 04/16/23 [facility] + Plan note Future Appointments Appointment Date:04/23/2023 10:15:00 AM Scheduled Provider:Teddy Hitchcock MD Location[facility] Appointment Type:WC [facility] ([facility] Future Appointments Appointment Date:04/30/2023 08:30:00 AM Scheduled Provider: [facility]oint[facility] Type:WC Assessment (FT) Appointment Date:05/07/2023 11:30:00 AM Scheduled Provider:Teddy Hitchcock MD Location[facility] Appointment Type:WC [facility] Future Appointments Appointment Date:05/07/2023 11:30:00 AM Scheduled Provider:Teddy Hitchcock MD Location[facility] Appointment Type:WC [facility] ([facility]ments Appointment Date:05/14/2023 07:00:00 AM Scheduled Provider:Teddy Hitchcock MD Location[facility] Appointment Type:WC [facility] Visit (FT[facility] Future Appointments Appointment Date:05/21/2023 11:15:00 AM Scheduled Provider:Teddy Hitchcock MD Location[facility] Appointment Type:WC Follow Up Visit (FT[facility] Future Appointments Appointment Date:06/04/2023 10:45:00 AM Scheduled Provider:Teddy Hitchcock MD Location[facility] Appointment Type:WC Follow Up Visit (FT[facility] Future Appointments Appointment Date:06/11/2023 01:00:00 PM Scheduled Provider: Location:.[facility] Appointment Type:WC Assessment (FT) Appointment Date:06/18/2023 10:00:00 AM Scheduled Provider:Teddy Hitchcock MD Location:.[facility] Appointment Type:WC Follow Up Visit (FT[facility] Future Appointments Appointment Date:06/25/2023 11:00:00 AM Scheduled Provider:Teddy Hitchcock MD Location[facility] Appointment Type:WC Follow Up Visit (FT[facility] Future Appointments Appointment Date:07/06/2023 10:30:00 AM Scheduled Provider:Teddy Hitchcock MD Location[facility] Appointment Type:WC Follow Up Visit (FT[facility] Future Appointments Appointment Date:07/16/2023 09:30:00 AM Scheduled Provider:Teddy Hitchcock MD Location[facility] Appointment Type:WC Follow Up Visit (FT[facility] Future Appointments Appointment Date:07/23/2023 09:00:00 AM Scheduled Provider:Teddy Hitchcock MD Location[facility] Appointment Type:WC Follow Up Visit (FT) Appointment Date:07/24/2023 07:40:00 AM Scheduled Provider:Lisa Padilla Location:[facility] Appointment Type:FM New Patient - [facility] Future Appointments Appointment Date:07/24/2023 07:40:00 AM Scheduled Provider:Lisa Padilla Location:[facility] Appointment Type: New Patient - Adult Appointment Date:08/06/2023 09:30:00 AM Scheduled Provider:Teddy Hitchcock MD Location[facility] Appointment Type:WC Follow Up Visit (FT[facility] Future Appointments Appointment Date:08/06/2023 09:30:00 AM Scheduled Provider:Teddy Hitchcock MD Location[facility] Appointment Type:WC Follow Up Visit (FT) Appointment Date:08/21/2023 07:20:00 AM Scheduled Provider:Lisa Padilla Location:[facility] Appointment Type: Open Future Scheduled Tests Laboratory* [...] Acid 07/24/23 * Vitamin B12 Level 07/24/23 [facility] + Plan note Future Appointments Appointment Date:08/21/2023 07:20:00 AM Scheduled Provider:Lisa Padilla Location:[facility] Appointment Type: Open Appointment Date:09/01/2023 12:00:00 PM Scheduled Provider:Mario Evans MD Location:[facility] Appointment Type:[facility] New Patient Future Scheduled Tests Laboratory* [...] Acid 07/24/23 * Vitamin B12 Level 07/24/[address] [facility] Future Appointments Appointment Date:09/01/2023 12:00:00 PM Scheduled Provider:Mario Evans MD Location:[facility] [place] Appointment Type:[facility] New Patient Appointment Date:10/28/2023 09:00:00 AM Scheduled Provider:Lisa Padilla Location:[facility] Appointment Type:[facility] Future Scheduled Tests Laboratory* HgbA1c 07/24/23 * [...] Acid 07/24/23 * Vitamin B12 Level 07/24/23 [facility] Evaluation + Plan note Future Appointments Appointment Date:09/03/2023 09:00:00 AM Scheduled Provider: [facility] Appointment Type:US Abdominal/Pelvis () Appointment Date:10/28/2023 09:00:00 AM Scheduled Provider:Lisa Padilla Location:[facility] Appointment Type: Open Future Scheduled Tests Laboratory* HgbA1c 07/24/23 * Pfzax-8-Hxnhshxaake 09/01/23 * Ceruloplasmin 09/01/23 * Antimitochondrial Antibody, [...] B12 Level 07/24/23 Radiology* US Liver 09/03/23 [facility] Evaluation + Plan note Future Appointments Appointment Date:10/28/2023 09:00:00 AM Scheduled Provider:Lisa Padilla Location:[facility] Appointment Type: Open Future Scheduled Tests Laboratory* HgbA1c 07/24/23 * Oipfg-0-Jtpjjncgmlw 09/01/23 * Ceruloplasmin 09/01/23 * Antimitochondrial Antibody, [...] Acid 07/24/23 * Vitamin B12 Level 07/24/[address] Future Appointments Appointment Date:09/30/2023 10:15:00 AM Scheduled Provider: Alvino:[facility] Appointment Type:Surgery FT Appointment Date:10/01/2023 11:20:00 AM Scheduled Provider:Lisa Padilla Location:[facility] Appointment Type:FM Open Appointment Date:10/28/2023 09:00:00 AM Scheduled Provider:Lisa Padilla Location:[facility] Appointment Type:FM Open Future Scheduled Tests Laboratory* HgbA1c 07/24/23 * Xklhp-5-Ipyhiwqoify 09/01/23 * Ceruloplasmin 09/01/23 * Antimitochondrial Antibody, [...] Acid 07/24/23 * Vitamin B12 Level 07/24/23 [facility] Evaluation note* Diagnosis Hemolytic anemia [...] fx jaw Hospitalization History LIVER ISSUES 2021 [facility] Other Hospital course Narrative No data available for this section [facility] No data available for this section [facility] No data available for this section [facility] HospitalReason for referral (narrative)* Tests/Procedures (Routine) - Authorized Specialty Diagnoses / Procedures Referred By Contact Referred To Contact Cardiovascular Testing Diagnoses Bilateral swelling of feet and ankles Tanvir Black MD [address] [place] [address] [facility] CARD NON INVASIVE [address] [place] [address] Referral ID Status Reason Start Date Expiration Date V isits Requested Visits Authorized [id number] Authorized 03/13/2022 03/13/2023 1 1 Scheduling Instructions [...] call the [facility] at [phone] ([phone]) if you are unable to keep [...] SpO2 100 %. Room/bed info not found @[email or web address]@ [facility] for visit Narrative* Auth/Cert Specialty Diagnoses / Procedures Referred By Contac t Referred To Contact Case Management Diagnoses Acute Liver Failure Procedures [facility] [address] [place] [address] Phone: [phone] [facility] [address] [place] [address] Phone: [phone] Referral ID Status Reason Start Date Expiration Date Visits Re quested Visits Authorized [id number] 3 3 [facility] for visit Narrative* Tests/Procedures (Routine) - Closed Specialty Diagnoses / Procedures Referred By Contact Referred To Contact Cardiovascular Testing Diagnoses Bilateral swelling of feet and ankles Tanvir Black MD [address] [place] [address] [place] [address] [facility] CARD NON INVASIVE [address] [place] [address] Referral ID Status Reason Start Date Expiration Date Visits Re quested Visits Authorized [id number] Closed 03/13/2022 03/13/2023 1 1 [facility] Reason for Referral Specialty Diagnoses / Procedures Referred By Contac t Referred To Contact Radiology Diagnoses Rib pain Procedures XR RIBS LT UNILAT W/PA CHEST Theo Burks MD [address] [place] [address] [place] [address] [facility] DIAGNOSTIC RADIOLOGY [address] [place] [address] [place] [address] Referral ID Status Reason Start Date Expiration Date V isits Requested Visits Authorized [id number] Authorized 12/15/2022 12/15/2023 1 1 Specialty Diagnoses / Procedures Referred By Contac t Referred To Contact Diagnoses Rib Theo De La Cruz MD [address] [place] [address] [place] [address] Referral ID Status Reason Start Date Expiration Date V isits Requested Visits Authorized [id number] Pending Review 3 3 Specialty Diagnoses / Procedures Referred By Contac t Referred To Contact Diagnoses Iron deficiency anemia, unspecified iron deficiency anemia type Alcoholic cirrhosis, unspecified whether ascites present (HCC) Alcoholic cirrhosis of liver without ascites (HCC) Tanvir Black MD [address] [place] [address] [place] [address] Referral ID Status Reason Start Date Expiration Date Visits Re quested Visits Authorized [id number] Closed 3 3 Specialty Diagnoses / Procedures Referred By Contac t Referred To Contact Radiology Diagnoses Alcoholic cirrhosis of liver without ascites (HCC) Procedures XA TRANSJUGULAR LIVER BIOPSY (CHRISTIANO) XA INTERVENTIONAL RADIOLOGY PROCEDURE SERVICE Marcello Ibanez MD [address] [place] [address] [facility] [address] [place] [address] Referral ID Status Reason Start Date Expiration Date V isits Requested Visits Authorized [id number] Authorized 10/27/2022 10/27/2023 1 1 Specialty Diagnoses / Procedures Referred By Contac t Referred To Contact Diagnoses Urinary tract infection without hematuria, site unspecified Leg swelling Tanvir Black MD [address] [place] [address] [place] [address] [facility] [address] [place] [address] Referral ID Status Reason Start Date Expiration Date V isits Requested Visits Authorized [id number] Authorized 08/21/2022 02/17/2023 3 3 Scheduling Instructions Please call Internal Medicine at to schedule an appointment. Specialty Diagnoses / Procedures Referred By Contac t Referred To Contact Radiology Diagnoses Lower extremity edema Procedures US LEG RIGHT VENOUS + DOPPLER Tanvir Black MD [address] [place] [address] [place] [address] [facility] [address] [place] [address] Referral ID Status Reason Start Date Expiration Date Visits Re quested Visits Authorized [id number] Closed 08/14/2022 08/14/2023 1 1 Specialty Diagnoses / Procedures Referred By Contac t Referred To Contact Radiology Diagnoses Iron deficiency anemia, unspecified iron deficiency anemia type Alcoholic cirrhosis, unspecified whether ascites present (HCC) Procedures US HEP PORT SPLEN VEIN + DOPPLER Saskia Madison APRN-PUBLIC POLICY MANAGER [address] [place] [address] [place] [address] [facility] [address] [place] [address] Referral ID Status Reason Start Date Expiration Date V isits Requested Visits Authorized [id number] Authorized 08/14/2022 08/14/2023 1 1 Specialty Diagnoses / Procedures Referred By Contac t Referred To Contact Radiology Diagnoses Iron deficiency anemia, unspecified iron deficiency anemia type Alcoholic cirrhosis, unspecified whether ascites present (HCC) Procedures US LIVER/GALL BLADDER/PANCREAS Saskia Madison, WHITE WASHER-PUBLIC POLICY MANAGER [address] [place] [address] [place] [address] [facility] [address] [place] [address] Referral ID Status Reason Start Date Expiration Date V isits Requested Visits Authorized [id number] Authorized 08/14/2022 08/14/2023 1 1 Specialty Diagnoses / Procedures Referred By Contac t Referred To Contact Afua Umanzor MD [address] [place] [address] Referral ID Status Reason Start Date Expiration Date V isits Requested Visits Authorized [id number] Pending Review 3 3 Referral ID Status Reason Start Date Expiration Date V isits Requested Visits Authorized [id number] Pending Review 3 3 Specialty Diagnoses / Procedures Referred By Contac t Referred To Contact Gastroenterology Diagnoses Alcoholic cirrhosis of liver without ascites (HCC) Afua Umanzor MD [address] [place] [address] [facility] LIVER [address] [place] [address] Referral ID Status Reason Start Date Expiration Date V isits Requested Visits Authorized [id number] Authorized 01/17/2022 01/17/2023 3 3 Scheduling Instructions [...] antibody (HCC) Thrombocytopenia (HCC) Afua Umanzor MD [address] [place] [address] [facility] HEMATOLOGY [address] [place] [address] Referral ID Status Reason Start Date Expiration Date V isits Requested Visits Authorized [id number] Authorized 01/17/2022 01/17/2023 3 3 Scheduling Instructions Please call the [facility] at [phone] to schedule an appointment if one was not made for you today. Specialty Diagnoses / Procedures Referred By Contac t Referred To Contact Diagnoses Tear of left biceps muscle, initial encounter Afua Umanzor MD [address] [place] [address] [facility] ORTHO HAND [address] [place] [address] Referral ID Status Reason Start Date Expiration Date V isits Requested Visits Authorized [id number] Authorized 01/17/2022 01/17/2023 3 3 Scheduling Instructions Please call the [facility] at [phone] to schedule an appointment if one was not made for you today. Question Answer Adult patient to be evaluated for: Elbow - Bicep Tear - Left [5] Comments No prior visits in PM&R No prior visits in Orthopedics Specialty Diagnoses / Procedures Referred By Contac t Referred To Contact Radiology Procedures US HEP PORT SPLEN VEIN + DOPPLER Ccp [address] [place] [address] [facility] [address] [place] [address] Referral ID Status Reason Start Date Expiration Date Visits Re quested Visits Authorized [id number] Closed 01/10/2022 01/10/2023 1 1 Specialty Diagnoses / Procedures Referred By Contac t Referred To Contact Radiology Procedures US SPLEEN US SPLEEN Ccp [address] [address] [facility] [address] [place] [address] Referral ID Status Reason Start Date Expiration Date Visits Re quested Visits Authorized [id number] Closed 01/09/2022 01/09/2023 1 1 Specialty Diagnoses / Procedures Referred By Contac t Referred To Contact Radiology Procedures XR ABDOMEN 1 VIEW AP Ccp [address] [address] [facility] DIAGNOSTIC RADIOLOGY [address] [place] [address] [place] [address] Referral ID Status Reason Start Date Expiration Date Visits Re quested Visits Authorized [id number] Closed 01/09/2022 01/09/2023 1 1 Specialty Diagnoses / Procedures Referred By Contac t Referred To Contact Radiology Procedures XR ORBITS Ccp [address] [address] [facility]STIC RADIOLOGY [address] [place] [address] [place] [address] Referral ID Status Reason Start Date Expiration Date Visits Re quested Visits Authorized [id number] Closed 01/08/2022 01/08/2023 1 1 Specialty Diagnoses / Procedures Referred By Contac t Referred To Contact Radiology Procedures US ASCITES SURVEY 4 QUADRANTS Ccp [address] [address] [facility] [address] [place] [address] Referral ID Status Reason Start Date Expiration Date Visits Re quested Visits Authorized [id number] Closed 01/08/2022 01/08/2023 1 1 Specialty Diagnoses / Procedures Referred By Contac t Referred To Contact Radiology Procedures US LIVER/GALL BLADDER/PANCREAS Ccp [address] [address] [facility] [address] [place] [address] Referral ID Status Reason Start Date Expiration Date Visits Re quested Visits Authorized [id number] Closed 01/08/2022 01/08/2023 1 1 Specialty Diagnoses / Procedures Referred By Contac t Referred To Contact Radiology Procedures XRAY CHEST IMAGE IMPORT(CHRISTIANO) Ivy Chua MD [address] [place] [address] [facility] DIAGNOSTIC RADIOLOGY [address] [place] [address] [place] [address] Referral ID Status Reason Start Date Expiration Date Visits Re quested Visits Authorized [id number] Closed 01/08/2022 01/08/2023 1 1 Specialty Diagnoses / Procedures Referred By Contac t Referred To Contact Radiology Procedures CT BODY IMAGE IMPORT(CHRISTIANO) DOWNLOAD POWERSHARE IMAGES TO [facility] Ivy Chua MD [address] [place] [address] [facility] DIAGNOSTIC RADIOLOGY [address] [place] [address] [place] [address] Referral ID Status Reason Start Date Expiration Date Visits Re quested Visits Authorized [id number] Closed 01/08/2022 01/08/2023 1 1 Specialty Diagnoses / Procedures Referred By Contac t Referred To Contact Radiology Procedures XR HUMERUS LEFT Ccp [address] [place] [address] [facility] DIAGNOSTIC RADIOLOGY [address] [place] [address] [place] [address] Referral ID Status Reason Start Date Expiration Date Visits Re quested Visits Authorized [id number] Closed 01/08/2022 01/08/2023 1 1 Specialty Diagnoses / Procedures Referred By Contac t Referred To Contact Radiology Procedures XR ELBOW LEFT MINIMUM 3 VIEWS Ccp [address] [place] [address] [facility] DI[facility]STIC RADIOLOGY [address] [place] [address] [place] [address] Referral ID Status Reason Start Date Expiration Date Visits Re quested Visits Authorized [id number] Closed 01/08/2022 01/08/2023 1 1 Advance Directives [...] on 01/14/22 at 1400, Last dose on Thu01/18/22 at 0900, at 125 mL/hr 1002 (IV New Bag - Provider: Teddy Daily Rn, RN) 0929 (IV New Bag - [...] Ana Salas RN)1649 (Given - Provider: Rosa Mensah RN) folic acid 1 MG tablet 1 [...] LPN)2208 (Given - Provider: Kristen Gan, IRENA) 1110 (Given - Provider: Ana Salas, IRENA)2100 [...] RN)0929 (Given - Provider: Teddy Maher Rn, RN)163 (Given - Provider: Teddy Maher Rn, RN)212 (Given - Provider: Farheen Dudley RN) 035 (Given - Provider: Jose David Tsai RN) [...] Discontinued, Anxiety 1530 (Given - Provider: Ana Salas RN) ondansetron (ZOFRAN) 4 MG/2ML injection 4 [...] Oral, STAT, 1 dose, On Thu08/15/22 at 5123 4602 (Given - Provid er: Mercedes Zapata RN) Reason for Visit (unrecogniz ed section and content) Reason Onset Date Comments Prior Authorization 01/21/2022 Reason Onset Date Comments Specialty Pharmacy Referral 02/11/2022 [facility] referral- no PA needed Specialty Diagnoses / Procedures Referred By Taya t Referred To Contact Hematology Diagnoses 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) Thrombocytopenia (HCC) Afua Umanzor MD [address] [place] [address] [address] [place], [place] [id number] Referral ID Status Reason Start Date Expiration Date V isits Requested Visits Authorized [id number] Authorized 01/17/2022 01/17/2023 3 3 Reason Comments Blood test Reason Comments Monitoring/follow-up Fatigue nausea and vomiting Reason Comments AIHA On cellcept Cirrhosis/other liver disease Reason Comments New patient, to establish relationship Specialty Diagnoses / Procedures Referred By Contac t Referred To Contact Gastroenterology Diagnoses Alcoholic cirrhosis of liver without ascites (HCC) Tanvir Black MD [address] [place] [address] [place] [address] [facility] LIVER [address] [place] [address] Referral ID Status Reason Start Date Expiration Date V isits Requested Visits Authorized [id number] Authorized 05/06/2022 05/06/2023 3 3 Reason Comments [...] Care Team (unrecognized sect ion and content) Tanker Serviceman Relationship Specialty Start Date End Date Theo Burks MD [address] [place] [address] [place] [address] PCP - General Family Medicine 08/25/22 Tanker Serviceman Relationship Specialty Start Date End Date Theo Burks MD [address] [place] [address] [place] [address] PCP - General Family Medicine 08/25/22 Tanker Serviceman Relationship Specialty Start Date End Date Theo Burks MD [address] [place] [address] [place] [address] PCP - General Family Medicine 08/25/22 Tanker Serviceman Relationship Specialty Start Date End Date Theo Burks MD [address] [place] [address] [place] [address] PCP - General Family Medicine 08/25/22 Tanker Serviceman Relationship Specialty Start Date End Date Theo Burks MD [address] [place] [address] [place] [address] PCP - General Family Medicine 08/25/22 Abbey Alvarez MD [address] [place] [address] [place] [address] Fellow Gastroenterology 09/13/22 Saskia Madison, WHITE WASHER-PUBLIC POLICY MANAGER [address] [place] [address] [place] [address] CELL INSTALLER Gastroenterology 09/13/22 Tanker Serviceman Relationship Specialty Start Date End Date Theo Burks MD [address] [place] [address] [place] [address] PCP - General Family Medicine 08/25/22 Abbey Alvarez MD [address] [place] [address] [place] [address] Fellow Gastroenterology 09/13/22 Saskia Madison, WHITE WASHER-PUBLIC POLICY MANAGER [address] [place] [address] [place] [address] CELL INSTALLER Gastroenterology 09/13/22 Tanker Serviceman Relationship Specialty Start Date End Date Theo Burks MD [address] [place] [address] [place] [address] PCP - General Family Medicine 08/25/22 Abbey Alvarez MD [address] [place] [address] [place] [address] Fellow Gastroenterology 09/13/22 Saskia Madison, WHITE WASHER-PUBLIC POLICY MANAGER [address] [place] [address] [place] [address] CELL INSTALLER Gastroenterology 09/13/22 Tanker Serviceman Relationship Specialty Start Date End Date Theo Burks MD [address] [place] [address] [place] [address] PCP - General Family Medicine 08/25/22 Abbey Alvarez MD [address] [place] [address] [place] [address] Fellow Gastroenterology 09/13/22 Saskia Madison, WHITE WASHER-PUBLIC POLICY MANAGER [address] [place] [address] [place] [address] CELL INSTALLER Gastroenterology 09/13/22 Tanker Serviceman Relationship Specialty Start Date End Date Theo Burks MD [address] [place] [address] [place] [address] PCP - General Family Medicine 08/25/22 Abbey Alvarez MD [address] [place] [address] [place] [address] Fellow Gastroenterology 09/13/22 Saskia Madison, WHITE WASHER-PUBLIC POLICY MANAGER [address] [place] [address] [place] [address] CELL INSTALLER Gastroenterology 09/13/22 Tanker Serviceman Relationship Specialty Start Date End Date Theo Burks MD [address] [place] [address] [place] [address] PCP - General Family Medicine 08/25/22 Abbey Alvarez MD [address] [place] [address] [place] [address] Fellow Gastroenterology 09/13/22 Saskia Madison, WHITE WASHER-PUBLIC POLICY MANAGER [address] [place] [address] [place] [address] CELL INSTALLER Gastroenterology 09/13/22 Tanker Serviceman Relationship Specialty Start Date End Date Theo Burks MD [address] [place] [address] [place] [address] PCP - General Family Medicine 08/25/22 Abbey Alvarez MD [address] [place] [address] [place] [address] Fellow Gastroenterology 09/13/22 Saskia Madison, WHITE WASHER-PUBLIC POLICY MANAGER [address] [place] [address] [place] [address] CELL INSTALLER Gastroenterology 09/13/22 Tanker Serviceman Relationship Specialty Start Date End Date Theo Burks MD [address] [place] [address] [place] [address] PCP - General Family Medicine 08/25/22 Abbey Alvarez MD [address] [place] [address] [place] [address] Fellow Gastroenterology 09/13/22 Saskia Madison, WHITE WASHER-PUBLIC POLICY MANAGER [address] [place] [address] [place] [address] CELL INSTALLER Gastroenterology 09/13/22 Tanker Serviceman Relationship Specialty Start Date End Date Theo Burks MD [address] [place] [address] [place] [address] PCP - General Family Medicine 08/25/22 Abbey Alvarez MD [address] [place] [address] [place] [address] Fellow Gastroenterology 09/13/22 Saskia Madison, WHITE WASHER-PUBLIC POLICY MANAGER [address] [place] [address] [place] [address] CELL INSTALLER Gastroenterology 09/13/22 Tanker Serviceman Relationship Specialty Start Date End Date Theo Burks MD [address] [place] [address] [place] [address] PCP - General Family Medicine 08/25/22 Abbey Alvarez MD [address] [place] [address] [place] [address] Fellow Gastroenterology 09/13/22 Saskia Madison WHITE WASHER-PUBLIC POLICY MANAGER [address] [place] [address] [place] [address] CELL INSTALLER Gastroenterology 09/13/22 Marcello Ibanez MD [address] [place] [address] Fellow Gastroenterology 11/08/22 Tanker Serviceman Relationship Specialty Start Date End Date Theo Burks MD [address] [place] [address] [place] [address] PCP - General Family Medicine 08/25/22 Abbey Alvarez MD [address] [place] [address] [place] [address] Fellow Gastroenterology 09/13/22 Saskia Madison, WHITE WASHER-PUBLIC POLICY MANAGER [address] [place] [address] [place] [address] CELL INSTALLER Gastroenterology 09/13/22 Marcello Ibanez MD [address] [place] [address] Fellow Gastroenterology 11/08/22 Tanker Serviceman Relationship Specialty Start Date End Date Theo Burks MD [address] [place] [address] [place] [address] PCP - General Family Medicine 08/25/22 Abbey Alvarez MD [address] [place] [address] [place] [address] Fellow Gastroenterology 09/13/22 Saskia Madison APRN-PUBLIC POLICY MANAGER [address] [place] [address] [place] [address] CELL INSTALLER Gastroenterology 09/13/22 Marcello Ibanez MD [address] [place] [address] Fellow Gastroenterology 11/08/22 Tanker Serviceman Relationship Specialty Start Date End Date Theo Burks MD [address] [place] [address] [place] [address] PCP - General Family Medicine 08/25/22 Abbey Alvarez MD [address] [place] [address] [place] [address] Fellow Gastroenterology 09/13/22 Saskia Madison, LIBAN-PUBLIC POLICY MANAGER [address] [place] [address] [place] [address] CELL INSTALLER Gastroenterology 09/13/22 Marcello Ibanez MD [address] [place] [address] Fellow Gastroenterology 11/08/22 Tanker Serviceman Relationship Specialty Start Date End Date Theo Burks MD [address] [place] [address] [place] [address] PCP - General Family Medicine 08/25/22 Abbey Alvarez MD [address] [place] [address] [place] [address] Fellow Gastroenterology 09/13/22 Saskia Madison APRN-PUBLIC POLICY MANAGER [address] [place] [address] [place] [address] CELL INSTALLER Gastroenterology 09/13/22 Marcello Ibanez MD [address] [place] [address] Fellow Gastroenterology 11/08/22 Tanker Serviceman Relationship Specialty Start Date End Date Theo Burks MD [address] [place] [address] [place] [address] PCP - General Family Medicine 08/25/22 Abbey Alvarez MD [address] [place] [address] [place] [address] Fellow Gastroenterology 09/13/22 Saskia Madison, WHITE WASHER-PUBLIC POLICY MANAGER [address] [place] [address] [place] [address] CELL INSTALLER Gastroenterology 09/13/22 Marcello Ibanez MD [address] [place] [address] Fellow Gastroenterology 11/08/22 Tanker Serviceman Relationship Specialty Start Date End Date Theo Burks MD [address] [place] [address] [place] [address] PCP - General Family Medicine 08/25/22 Abbey Alvarez MD [address] [place] [address] [place] [address] Fellow Gastroenterology 09/13/22 Saskia Madison, WHITE WASHER-PUBLIC POLICY MANAGER [address] [place] [address] [place] [address] CELL INSTALLER Gastroenterology 09/13/22 Marcello Ibanez MD [address] [place] [address] Fellow Gastroenterology 11/08/22 Tanker Serviceman Relationship Specialty Start Date End Date Theo Burks MD [address] [place] [address] [place] [address] PCP - General Family Medicine 08/25/22 Abbey Alvarez MD [address] [place] [address] [place] [address] Fellow Gastroenterology 09/13/22 Saskia Madison, LIBAN-PUBLIC POLICY MANAGER [address] [place] [address] [place] [address] CELL INSTALLER Gastroenterology 09/13/22 Marcello Ibanez MD [address] [place] [address] Fellow Gastroenterology 11/08/22 Tanker Serviceman Relationship Specialty Start Date End Date Theo Burks MD [address] [place] [address] [place] [address] PCP - General Family Medicine 08/25/22 Abbey Alvarez MD [address] [place] [address] [place] [address] Fellow Gastroenterology 09/13/22 Saskia Madison, LIBAN-PUBLIC POLICY MANAGER [address] [place] [address] [place] [address] CELL INSTALLER Gastroenterology 09/13/22 Marcello Ibanez MD [address] [place] [address] Fellow Gastroenterology 11/08/22 Tanker Serviceman Relationship Specialty Start Date End Date Theo Burks MD [address] [place] [address] [place] [address] PCP - General Family Medicine 08/25/22 Abbey Alvarez MD [address] [place] [address] [place] [address] Fellow Gastroenterology 09/13/22 Saskia Madison APRN-PUBLIC POLICY MANAGER [address] [place] [address] [place] [address] CELL INSTALLER Gastroenterology 09/13/22 Marcello Ibanez MD [address] [place] [address] Fellow Gastroenterology 11/08/22 Tanker Serviceman Relationship Specialty Start Date End Date Theo Burks MD [address] [place] [address] [place] [address] PCP - General Family Medicine 08/25/22 Abbey Alvarez MD [address] [place] [address] [place] [address] Fellow Gastroenterology 09/13/22 Saskia Madison APRN-PUBLIC POLICY MANAGER [address] [place] [address] [place] [address] CELL INSTALLER Gastroenterology 09/13/22 Marcello Ibanez MD [address] [place] [address] Fellow Gastroenterology 11/08/22 Tanker Serviceman Relationship Specialty Start Date End Date Theo Burks MD [address] [place] [address] [place] [address] PCP - General Family Medicine 08/25/22 Abbey Alvarez MD [address] [place] [address] [place] [address] Fellow Gastroenterology 09/13/22 Saskia Madison APRN-PUBLIC POLICY MANAGER [address] [place] [address] [place] [address] CELL INSTALLER Gastroenterology 09/13/22 Marcello Ibanez MD [address] [place] [address] Fellow Gastroenterology 11/08/22 Tanker Serviceman Relationship Specialty Start Date End Date Theo Burks MD [address] [place] [address] [place] [address] PCP - General Family Medicine 08/25/22 Abbey Alvarez MD [address] [place] [address] [place] [address] Fellow Gastroenterology 09/13/22 Saskia Madison APRN-PUBLIC POLICY MANAGER [address] [place] [address] [place] [address] CELL INSTALLER Gastroenterology 09/13/22 Marcello Ibanez MD [address] [place] [address] Fellow Gastroenterology 11/08/22 Tanker Serviceman Relationship Specialty Start Date End Date Theo Burks MD [address] [place] [address] [place] [address] PCP - General Family Medicine 08/25/22 Abbey Alvarez MD [address] [place] [address] [place] [address] Fellow Gastroenterology 09/13/22 Saskia Madison APRN-PUBLIC POLICY MANAGER [address] [place] [address] [place] [address] CELL INSTALLER Gastroenterology 09/13/22 Marcello Ibanez MD [address] [place] [address] Fellow Gastroenterology 11/08/22 Tanker Serviceman Relationship Specialty Start Date End Date Theo Burks MD [address] [place] [address] [place] [address] PCP - General Family Medicine 08/25/22 Abbey Alvarez MD [address] [place] [address] [place] [address] Fellow Gastroenterology 09/13/22 Saskia Madison APRN-PUBLIC POLICY MANAGER [address] [place] [address] [place] [address] CELL INSTALLER Gastroenterology 09/13/22 Marcello Ibanez MD [address] [place] [address] Fellow Gastroenterology 11/08/22 Tanker Serviceman Relationship Specialty Start Date End Date Theo Burks MD [address] [place] [address] [place] [address] PCP - General Family Medicine 08/25/22 Abbey Alvarez MD [address] [place] [address] [place] [address] Fellow Gastroenterology 09/13/22 Saskia Madison APRN-PUBLIC POLICY MANAGER [address] [place] [address] [place] [address] CELL INSTALLER Gastroenterology 09/13/22 Marcello Ibanez MD [address] [place] [address] Fellow Gastroenterology 11/08/22 Tanker Serviceman Relationship Specialty Start Date End Date Theo Burks MD [address] [place] [address] [place] [address] PCP - General Family Medicine 08/25/22 Abbey Alvarez MD [address] [place] [address] [place] [address] Fellow Gastroenterology 09/13/22 Saskia Madison APRN-PUBLIC POLICY MANAGER [address] [place] [address] [place] [address] CELL INSTALLER Gastroenterology 09/13/22 Marcello Ibanez MD [address] [place] [address] Fellow Gastroenterology 11/08/22 Tanker Serviceman Relationship Specialty Start Date End Date Theo Burks MD [address] [place] [address] [place] [address] PCP - General Family Medicine 08/25/22 Abbey Alvarez MD [address] [place] [address] [place] [address] Fellow Gastroenterology 09/13/22 Saskia Madison APRN-PUBLIC POLICY MANAGER [address] [place] [address] [place] [address] CELL INSTALLER Gastroenterology 09/13/22 Marcello Ibanez MD [address] [place] [address] Fellow Gastroenterology 11/08/22 (unrecognized sect ion and content) No Status Records FoundNo Status Records Found INFORMATION SOURCE (unrecogn ized section and content) DATE CREATED AUTHOR 10/05/2023 [facility] DATE CREATED AUTHOR AUTHOR'S ERYN KEITA 10/12/2023 [facility] FOR RECORDS PERTAINING TO PATIENTS WHO ARE [...] BE BASED ON THE PRIMARY CLINICAL RECORDS. [facility] [employer] [facility]. provides no warranty or guarantee of the accuracy or completeness of information in this document.
== END 2023-10-20 08:59 | disposition home or self-care (01) ==
LOC: VC 08:59
PROVIDERS: PCP Radiology Diagnostic Radiology; Visit Provider Radiology Diagnostic Radiology
DX: I83.813 Varicose veins of bilateral lower extremities with pain (principal)
CPT/HCPCS: 36466

== ENCOUNTER 2023-10-27 12:54 | Outpatient (OUT) | payer OTHER, SELFPAY ==
--- NOTE | 2023-10-27 12:56 | VEIN_ITS ---
Patient Name: WILL ANDERSON MR#: [id number] : 1985 Exam Date: 10/27/2023 Ordering Doctor: DR JOHN ANDREA M.D. RADIOLOGY REPORT PROCEDURE: VC EXT VENOUS RT LMTD COMPARISON: VC EXT VENOUS RT LMTD, 08/12/2023. INDICATIONS: I80.01 Phlebitis of superficial veins of rt lower extremity TECHNIQUE: Lower extremity fernandez scale and Duplex Doppler evaluation of the deep venous system from the inguinal ligament through the calf veins. FINDINGS: REGION: Right lower extremity. THROMBI: Negative for DVT. Varithena induced thrombus visualized at dist/med calf. COMPRESSIBILITY: Non-compressible segments corresponding to thrombus FLOW: Areas of no flow corresponding to thrombus OTHER: No patent varicose veins remain. CONCLUSION: 1. Successful post ablation occlusion of right leg treated branch saphenous varicosities. Dictated by: Irineo Alvarez M.D. on 10/27/2023 at 14:14 Approved by: Irineo Alvarez M.D. on 10/27/2023 at 14:14
--- NOTE | 2023-10-27 12:56 | VEIN_ITS ---
Patient Name: WILL ANDERSON MR#: [id number] : 1985 Exam Date: 10/27/2023 Ordering Doctor: DR JOHN ANDREA M.D. RADIOLOGY REPORT PROCEDURE: [facility] EST L[facility] - OFFICE VISIT FOLLOW UP COMPARISON: DAVIES CAMPUSTD, 08/12/2023. PROGRESS NOTES: The patient reports improvement in leg symptoms. There has been interval reduction in varicosities. The patient has followed our recommendations to walk 20-30 minutes once or twice per day since the procedure. Physical exam demonstrates decrease in varicosities of the leg. No additional visible varicosities. Marked improvement with near complete healing of lateral lower leg wound. Review of the ultrasound performed the same day demonstrates occlusive thrombus extending throughout the treated vein(s), see separate report, consistent with a successful ablation. No thrombus extending into or beyond the saphenofemoral junction. No additional varicose veins within cyst right lower extremity in need of treatment at this time. [facility]: 1. Successful ablation of the right leg treated branch saphenous vein(s). 2. No remaining varicose veins in need of treatment. 3. Near complete healing of chronic lower right leg wound. PLAN: No additional treatment recommend at this time. Follow-up in future as needed. Nurse notes, history and physical were reviewed and confirmed, see attached forms. The nurse was present throughout the physical exam and consultation Dictated by: Irineo Alvarez M.D. on 10/27/2023 at 14:14 Approved by: Irineo Alvarez M.D. on 10/27/2023 at 14:16
== END 2023-10-27 12:55 | disposition home or self-care (01) ==
LOC: VC 12:55
PROVIDERS: PCP Radiology Diagnostic Radiology; Visit Provider Radiology Diagnostic Radiology
DX: I80.01 Phlebitis and thrombophlebitis of superficial vessels of right lower extremity (principal)
CPT/HCPCS: 93971; G0463

== ENCOUNTER 2024-04-01 10:20 | Inpatient (IN) | payer OTHER, SELFPAY ==
[2024-04-01] VITALS (11 sets, daily range): BP systolic 116–158; BP diastolic 65–84; PULSE 78–92; TEMP 36.8–37.1; O2SAT 94–997; BMI 24.2; BMI 23.2
--- NOTE | 2024-04-01 10:41 | PC.NURSE ---
no redness or swelling from thigh to below knee. edema noted from lower extremity to foot, area red and warm to tough. at bedside
--- NOTE | 2024-04-01 10:47 | US_ITS ---
The [address] [address] Patient Name: WILL ANDERSON MRN: [id number] date: 1985 Sex: M Assigned Patient Location: ED.MAIN Current Patient Location: ER Accession/Order Number: [id number] Exam Date: 04/01/2024 11:20 Report Date: 04/01/2024 11:58 At the request of: ARNALDO ROSEN Procedure: US venous doppler LE RT EXAMINATION: US venous doppler LE RT HISTORY: Pain and swelling COMPARISON: No relevant comparison available. FINDINGS: REGION: Right lower extremity THROMBI: None. COMPRESSIBILITY: Normal compressibility. FLOW: Normal waveform and antegrade flow between 5 and 20 cm/s. OTHER: Thrombosed great saphenous via prior treatment. US/US venous doppler LE RT IMPRESSION: 1. No deep vein thrombus within the right lower extremity. Electronically authenticated by: MARGARET WEEKS Date: 04/01/2024 11:58
--- NOTE | 2024-04-01 10:48 | ED.EXTPRO1 ---
HPI - Extremity Problem General Chief complaint: Extremity Problem, Nontraumatic Stated complaint: LOWER RIGHT EXTREMITY PAIN , TENDERNESS Time Seen by Provider: 04/01/24 10:31 Source: patient Mode of arrival: walk-in History of Present Illness HPI Narrative: 38-year-old male presents for redness and swelling to his right lower leg. It started a few days ago and it has been getting a bit worse. He is worried he has a skin infection which she has had previously. It goes from the foot all the way up to his groin area. He thinks he may have had a fever at home but did not check his temperature. He has also had some dysuria. He has a history of liver disease but no diabetes and he has had vein surgery on that right leg. Related Data Home Medications ?Medication ?Instructions ?Recorded ?Confirmed folic acid 1 mg tablet 1 mg PO DAILY 08/12/23 04/01/24 lactulose 10 gram/15 mL (15 mL) 30 ml PO BID 08/12/23 04/01/24 oral solution multivitamin with folic acid 400 1 tab PO DAILY 08/12/23 04/01/24 mcg tablet (Tab-A-Scott) mycophenolate mofetil 500 mg tablet 500 mg PO BID 08/12/23 04/01/24 spironolactone 50 mg tablet 50 mg PO DAILY 08/12/23 04/01/24 furosemide 20 mg tablet 20 mg PO DAILY 04/01/24 04/01/24 ondansetron 4 mg disintegrating 4 mg PO TID 04/01/24 04/01/24 tablet Allergies Allergy/AdvReac Type Severity Reaction Status Date / Time amoxicillin Allergy Severe Unknown Verified 04/01/24 10:29 Iodinated Contrast Media Allergy Severe Muscle Pain Verified 04/01/24 10:29 Penicillins Allergy Severe Unknown Verified 04/01/24 10:29 Review of Systems ROS Narrative A ten point review of systems is negative except as noted above. 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 Smoking status: Former smoker Non-prescribed substance use: denies use Previous occupational history: [employer] Highest level of school completed/degree received: high school graduate Are you now , , , , never or living with a partner: never In a typical week, how many times do you talk on the telephone with family, friends, or neighbors: 3 or more times per week How often do you get together with friends or relatives: twice per week How often do you attend hinduism or religion services: never Do you belong to any clubs or organizations such as hinduism groups unions, fraIconfinder or athletic groups, or school groups: no Total score: 1 Score interpretation: A score of less than or equal to 1 indicates the most socially isolated. Little interest or pleasure in doing things: not at all Feeling down, depressed, or hopeless: not at all Feel stressed/tense/nervous/anxious/difficulty sleeping: to some extent Life stressor details: Pain in legs Exam Narrative Exam Narrative: Nurses note and vital signs reviewed and patient is not hypoxic. General: The patient appears in no apparent distress. Patient is resting comfortably on cart. Skin: Warm, dry, no pallor noted. There is no rash noted. Head: Normocephalic, atraumatic Eye: Sclera are mildly icteric, no drainage Ears, Nose, Mouth, and Throat: oral mucosa is moist. Nares patent. Cardiovascular: Regular Rate and Rhythm Respiratory: Patient is in no distress, no accessory muscle use, lungs are clear to auscultation, no wheezing, rales or rhonchi Back: non-tender GI: Soft and nontender Musculoskeletal: The left leg is not swollen. The right is swollen from his foot to his groin and is erythematous this from his foot to just below the knee. Neurological: A&O, normal speech Psychiatric: Cooperative Constitutional Vital Signs, click to edit/add: Last Vital Signs Temp 98.6 F 04/01/24 10:23 Pulse 78 04/01/24 11:49 Resp 14 04/01/24 11:49 BP 142/80 H 04/01/24 11:49 Pulse Ox 100 04/01/24 11:49 O2 Del Method Room Air 04/01/24 10:23 Course Vital Signs Vital signs: Vital Signs Temperature 98.6 F 04/01/24 10:23 Pulse Rate 83 04/01/24 10:23 Respiratory Rate 16 04/01/24 10:23 Blood Pressure 134/84 04/01/24 10:23 Pulse Oximetry 100 04/01/24 10:23 Oxygen Delivery Method Room Air 04/01/24 10:23 Temperature 98.6 F 04/01/24 10:23 Pulse Rate 78 04/01/24 11:49 Respiratory Rate 14 04/01/24 11:49 Blood Pressure 142/80 H 04/01/24 11:49 Pulse Oximetry 100 04/01/24 11:49 Oxygen Delivery Method Room Air 04/01/24 10:23 MDM - Extremity (Nontraumatic) MDM Narrative Medical decision making narrative: Dopplers negative, no evidence of DVT. My clinical impression is that he has cellulitis. Blood cultures and lactic acid were ordered. The patient also has UTI with greater than 100 white cells per high-power field. Gonorrhea and Chlamydia tests are ordered as well as a urine culture. I have spoken to Dr. Viramontes and we have agreed that the patient will be admitted and she will order antibiotics for him. Treatment diagnosis and disposition were discussed with the patient. Differential Diagnosis Differential diagnosis: Likely cellulitis, superficial thrombophlebitis, lower extremity edema and deep vein thrombosis of lower extremity Lab Data Attestation: I reviewed the patient's lab results. Labs: Lab Results 04/01/24 04/01/24 Range/Units 10:39 11:00 WBC 12.0 H (4.0-11.0) 10^3/uL RBC 3.09 L (4.70-6.10) 10^6/uL Hgb 11.0 L (14.0-18.0) g/dL Hct 32.2 L (42.0-54.0) % MCV 104.2 H (80.0-94.0) fL MCH 35.6 H (25.9-34.0) pg MCHC 34.2 (29.9-35.2) g/dL RDW 15.2 H (11.0-15.0) % Plt Count 48 L (150-450) 10^3/uL MPV 10.9 (9.5-13.5) fL Neut % (Auto) 82.0 H (43.0-75.0) % Lymph % (Auto) 6.9 L (20.5-60.0) % [place] % (Auto) 8.6 (1.7-12.0) % Eos % (Auto) 1.0 (0.9-7.0) % Baso % (Auto) 0.3 (0.2-2.0) % Neut # (Auto) 9.9 H (1.4-6.5) 10^3/uL Lymph # (Auto) 0.8 L (1.2-3.8) 10^3/uL [place] # (Auto) 1.0 H (0.3-0.8) 10^3/uL Eos # (Auto) 0.1 (0.0-0.7) 10^3/uL Baso # (Auto) 0.0 (0.0-0.1) 10^3/uL Abs Immat Gran (auto) 0.14 H (0.00-0.03) 10^3/uL Imm/Tot Granulo (auto) 1.2 H (0.0-0.5) % Sodium 133 L (136-145) mmol/L Potassium 4.1 (3.5-5.1) mmol/L Chloride 101 (98-107) mmol/L Carbon Dioxide 26.0 (21.0-32.0) mmol/L Anion Gap 10.1 BUN 10.0 (7.0-18.0) mg/dL Creatinine 0.73 (0.70-1.30) mg/dL Est GFR ( Amer) >60 (>=60) Est GFR (Non-Af Amer) >60 (>=60) BUN/Creatinine Ratio 13.7 Glucose 193 H (74-106) mg/dL Calcium 8.7 (8.5-10.1) mg/dL Total Bilirubin 7.0 H (0.2-1.0) mg/dL Direct Bilirubin 1.7 H* (0.0-0.2) mg/dL AST 68 H (15-37) U/L ALT 61 (16-63) U/L Alkaline Phosphatase 174 H (46-116) U/L Total Protein 6.0 L (6.4-8.2) g/dL Albumin 2.5 L (3.4-5.0) g/dL Globulin 3.5 g/dL Albumin/Globulin Ratio 0.7 Urine Color Dk yellow (YELLOW) Urine Clarity Cloudy A (CLEAR) Urine pH 6.0 (5.0-9.0) Ur Specific [place] 1.020 (1.005-1.025) Urine Protein 30 A (NEG/TRACE) mg/dL Urine Glucose (UA) Negative (NEGATIVE) mg/dL Urine Ketones Negative (NEGATIVE) mg/dL Urine Occult Blood Moderate A (NEGATIVE) Urine Nitrite Positive A (NEGATIVE) Urine Bilirubin Small A (NEGATIVE) Urine Urobilinogen 2.0 A (0.2-1.0) EU/dL Ur Leukocyte Esterase Large A (NEGATIVE) Urine RBC 5-10 A (0-2) #/HPF Urine WBC >100 A (NONE SEEN) #/HPF Ur Squamous Epith Cells Few A (NONE/RARE) #/LPF Urine Crystals None seen (None Seen) #/HPF Urine Bacteria Large A (NONE SEEN) #/HPF Urine Casts None seen (NONE SEEN) #/LPF Urine Mucus None seen (NONE SEEN) Ur Culture Indicated? Yes Imaging Data Venous Doppler: Radiologist's impression: ITS Impressions Venous Doppler Study 04/01/24 10:47 IMPRESSION: 1. No deep vein thrombus within the right lower extremity. Electronically authenticated by: MARGARET WEEKS Date: 04/01/2024 11:58 Discharge Plan Discharge Chief Complaint: Extremity Problem, Nontraumatic Clinical Impression: Cellulitis of right leg, Urinary tract infection Patient Disposition: Admitted As Inpatient Time of Disposition Decision: 12:15 Condition: Good
[2024-04-01 10:56] LABS: Bilirubin Urine SMALL (NEGATIVE); Blood Urine MODERATE (NEGATIVE); Clarity Urine CLOUDY (CLEAR); Glucose Urine UA NEGATIVE (NEGATIVE); Ketones Urine NEGATIVE (NEGATIVE); Leukocyte Esterase Urine LARGE (NEGATIVE); Nitrite Urine POSITIVE (NEGATIVE); Protein Urine 30 mg/dL (NEG/TRACE)
[2024-04-01 11:09] LABS: Color Urine DK YELLOW (YELLOW)
[2024-04-01 11:13] LABS: Basophils Percent Auto 0.3 % (0.2-2.0); Eosinophils Absolute Auto 0.1 10^3/uL (0.0-0.7); Hematocrit 32.2 % (42.0-54.0); Immature Granulocytes Abs Auto 0.14 10^3/uL (0.00-0.03); Immature Granulocytes Pct Auto 1.2 % (0.0-0.5); Lymphocytes Absolute Auto 0.8 10^3/uL (1.2-3.8); Lymphocytes Percent Auto 6.9 % (20.5-60.0); Mean Corpuscular HGB Conc 34.2 g/dL (29.9-35.2); Mean Corpuscular Hemoglobin 35.6 pg (25.9-34.0); Mean Corpuscular Volume 104.2 fL (80.0-94.0); Mean Platelet Volume 10.9 fL (9.5-13.5); Monocytes Percent Auto 8.6 % (1.7-12.0); Neutrophils Absolute Auto 9.9 10^3/uL (1.4-6.5); Red Blood Count 3.09 10^6/uL (4.70-6.10); Red Cell Distribution Width 15.2 % (11.0-15.0)
[2024-04-01 11:23] LABS: Anion Gap 10.1; BUN Creatinine Ratio 13.7; Calcium 8.7 mg/dL (8.5-10.1); Chloride 101 mmol/L (98-107); Estimated GFR (African America >60 (>=60); Estimated GFR (Non-African Ame >60 (>=60); Glucose 193 mg/dL (74-106); Potassium 4.1 mmol/L (3.5-5.1); Sodium 133 mmol/L (136-145)
[2024-04-01 11:30] LABS: Bacteria Urine LARGE #/HPF (NONE SEEN); Cast Seen? NONE SEEN #/LPF (NONE SEEN); Crystals Seen? None Seen #/HPF (None Seen); Mucus Urine NONE SEEN (NONE SEEN); Squamous Epithelial Cell Urine FEW #/LPF (NONE/RARE); Urine Culture Indicated YES; WBC Urine >100 #/HPF (NONE SEEN)
[2024-04-01 11:30] LABS: Alanine Aminotransferase 61 U/L (16-63); Albumin Globulin Ratio 0.7; Albumin Level 2.5 g/dL (3.4-5.0); Alkaline Phosphatase 174 U/L (46-116); Aspartate Amino Transferase 68 U/L (15-37); Globulin 3.5 g/dL
[2024-04-01 11:34] LABS: Bilirubin Direct 1.7 mg/dL (0.0-0.2)
[2024-04-01 11:35] LABS: Platelet Count 48 10^3/uL (150-450)
[2024-04-01 12:32] LABS: Lactate/Lactic Acid 1.8 mmol/L (0.4-2.0)
--- NOTE | 2024-04-01 12:55 | P.HP_ITS ---
HPI H&P: HPI History of Present Illness Chief complaint: LOWER RIGHT EXTREMITY PAIN , TENDERNESS Narrative: Patient is a 38 y.o White male with past medical history of Alcoholic Cirrhosis with history of esophageal varices, Hemolytic anemia, and peripheral vein varicosities. He was last admitted to our facility in August 2023 for left lower ext cellulitis from Klebsiella at that time. He also required an I&D. Today he presents to the ER for increased redness of the right lower extremity with fevers, chills. He denies any previous injuries or recent procedures. Increased swelling of the right lower ext has also occurred. He also admits to urinary frequency and urgency. He notes symptoms started abruptly last night with pain in his right groin that radiated down his right leg to his foot, then the swelling, and redness started. He also has been chilled and felt like fevers since yesterday. He follows regularly with a shaker plate operator in [place] who recently stopped his CellCept. He has also stopped his vitamins. ER findings: US Doppler negative for DVT on the right, UA positive for UTI, WBC's 12, Hb 11, platelets 48, sodium 133, potassium 4.1, lactate 1.8, AST 68, ALT 61 Patient will be admitted for UTI, RLE cellulitis Opioid HPI Opioid Management Most Recent Pain and Opioid Data: Last Pain Scale 9 04/01/24 13:10 Last Pain Assessment 04/01/24 13:10 Last ORT Total Score 2 04/01/24 13:15 Last ORT Risk Category Low Risk 04/01/24 13:15 Review of Systems ROS Narrative ROS: a complete review of systems were reviewed with patient and are positive as below or listed in History of Chief Complaint. General:fever and chills, no night sweats Head: no headache, trauma, visual changes, nausea or vomiting Skin: right leg swelling and redness Eyes: no blurriness of vision Ears: no reported hearing loss, vertigo, earache, or tinnitus Throat: no sore throat, hoarseness, swelling of neck, or tongue pain Heart: no chest pain Lungs: no shortness of breath or cough GI: no diarrhea or vomiting/nausea Urinary: no urinary urgency, frequency or pain Neuro: no numbness or tingling HEM: bleeding issues and bruising ENDO: no thyroid problems Psych: no anxiety or depression [facility] Medical History (Updated 04/01/24 @ 13:13 by Vera Story) Esophageal varices determined by endoscopy ?I85.00 - Esophageal varices without bleeding (ICD-10) Cellulitis of left leg ?L03.116 - Cellulitis of left lower limb (ICD-10) Fracture, jaw ?S02.609A - Fracture of mandible, unspecified, initial encounter for closed fracture (ICD-10) Immunosuppressed status ?D84.9 - Immunodeficiency, unspecified (ICD-10) Hyperbilirubinemia ?E80.6 - Other disorders of bilirubin metabolism (ICD-10) 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 Smoking status: Former smoker Do you use any of these nicotine containing products: smokeless tobacco Non-prescribed substance use: denies use Previous occupational history: [employer] Highest level of school completed/degree received: high school graduate Are you now , , , , never or living with a partner: never In a typical week, how many times do you talk on the telephone with family, friends, or neighbors: 3 or more times per week How often do you get together with friends or relatives: twice per week How often do you attend quaker or hinduism services: never Do you belong to any clubs or organizations such as quaker groups unions, fraternal or athletic groups, or school groups: no Total score: 1 Score interpretation: A score of less than or equal to 1 indicates the most socially isolated. Little interest or pleasure in doing things: not at all Feeling down, depressed, or hopeless: not at all Feel stressed/tense/nervous/anxious/difficulty sleeping: to some extent Life stressor details: Pain in legs Gender Identity: female Meds Home Medications and Allergies Home Medications ?Medication ?Instructions ?Recorded ?Confirmed ?Type folic acid 1 mg tablet 1 mg PO DAILY 08/12/23 04/01/24 History lactulose 10 gram/15 mL (15 mL) 30 ml PO BID 08/12/23 04/01/24 History oral solution multivitamin with folic acid 400 1 tab PO DAILY 08/12/23 04/01/24 History mcg tablet (Tab-A-Scott) mycophenolate mofetil 500 mg tablet 500 mg PO BID 08/12/23 04/01/24 History spironolactone 50 mg tablet 50 mg PO DAILY 08/12/23 04/01/24 History furosemide 20 mg tablet 20 mg PO DAILY 04/01/24 04/01/24 History ondansetron 4 mg disintegrating 4 mg PO TID 04/01/24 04/01/24 History tablet Allergies Allergy/AdvReac Type Severity Reaction Status Date / Time amoxicillin Allergy Severe Unknown Verified 04/01/24 10:29 Iodinated Contrast Media Allergy Severe Muscle Pain Verified 04/01/24 10:29 Penicillins Allergy Severe Unknown Verified 04/01/24 10:29 Exam Narrative Exam Narrative: General: Patient is alert, and oriented to person, place and time with normal affect Skin: right lower ext has erythema, with swelling of the top of the right foot to just below the right knee, I cannot appreciate any abrasions, ulcerations or breaks in the skin. Head: atraumatic, acephalic Eyes: PERRLA, no nystagmus present, conjunctiva clear, scleral icterus Ears: normal gross auditory acuity Nose: symmetric, no discharge, no maxillary or frontal sinus tenderness Heart: Normal rate and rhythm, no murmurs/rubs/gallops Lungs: no audible wheezes, crackles and normal breath sounds all lung escoto Abdomen: Normal audible bowel sounds, no distension, No palpable masses, no organomegaly, no rebound/guarding/ or rigidity Musculoskeletal: no swelling of left lower extremity, see skin exam for right LE Neuro: CN II-X grossly intact Constitutional Vital Signs, click to edit/add: Last Vital Signs Temp 98.6 F 04/01/24 10:23 Pulse 78 04/01/24 11:49 Resp 14 04/01/24 11:49 BP 142/80 H 04/01/24 11:49 Pulse Ox 100 04/01/24 11:49 O2 Del Method Room Air 04/01/24 10:23 Results Labs Labs: Short CBC 04/01/24 Range/Units 11:00 WBC 12.0 H (4.0-11.0) 10^3/uL Hgb 11.0 L (14.0-18.0) g/dL Hct 32.2 L (42.0-54.0) % Plt Count 48 L (150-450) 10^3/uL BMP 04/01/24 11:00 Sodium 133 L Potassium 4.1 Chloride 101 Carbon Dioxide 26.0 BUN 10.0 Creatinine 0.73 Glucose 193 H Calcium 8.7 Liver Function 04/01/24 Range/Units 11:00 Total Bilirubin 7.0 H (0.2-1.0) mg/dL Direct Bilirubin 1.7 H* (0.0-0.2) mg/dL AST 68 H (15-37) U/L ALT 61 (16-63) U/L Alkaline Phosphatase 174 H (46-116) U/L Albumin 2.5 L (3.4-5.0) g/dL Urine 04/01/24 Range/Units 10:39 Urine Color Dk yellow (YELLOW) Urine Clarity Cloudy A (CLEAR) Urine pH 6.0 (5.0-9.0) Ur Specific Od[place] 1.020 (1.005-1.025) Urine Protein 30 A (NEG/TRACE) mg/dL Urine Glucose (UA) Negative (NEGATIVE) mg/dL Assessment and Plan Assessment and Plan (1) Cellulitis of right leg: Assessment and Plan: Leukocytosis, US negative for DVT; Given PCN allergy, liver disease and prior wound culture for Klebsiella, and the need for MRSA coverage, will place patient on IV Vancomycin and Imipenem. Will also check Arterial US, morphine for pain control (2) Urinary tract infection: Assessment and Plan: awaiting urine culture, continue IV antibiotics Qualifiers: Hematuria presence: without hematuria Urinary tract infection type: acute cystitis Qualified Code(s): N30.00 - Acute cystitis without hematuria (3) Hypertension: Assessment and Plan: continue spironolactone, may benefit from Nadolol in the future, also takes lasix Qualifiers: Hypertension type: primary hypertension Qualified Code(s): I10 - Essential (primary) hypertension (4) Liver cirrhosis, alcoholic: Assessment and Plan: continue daily lactulose, folic acid and multivitamin Qualifiers: Ascites presence: without ascites Qualified Code(s): K70.30 - Alcoholic cirrhosis of liver without ascites (5) Warm autoimmune hemolytic anemia: Assessment and Plan: stopped taking Cellcept (6) Hyperbilirubinemia: Assessment and Plan: appears patient's baseline, continue lactulose. Plan Patient is a full code holding DVT prophylaxis as patient with liver disease and altered Coags in the past, compression stockings Patient is inpatient status and is expected to stay 2-3 days for IV antibiotic treatment
--- NOTE | 2024-04-01 13:56 | US_ITS ---
[place] [id number] Patient Name: WILL ANDERSON MRN: [id number] date: 1985 Sex: M Assigned Patient Location: [place] Current Patient Location: [place] Accession/Order Number: [id number] Exam Date: 04/01/2024 13:47 Report Date: 04/01/2024 16:14 At the request of: YVAN RODRIGUEZ Procedure: US arterial duplex LE RT EXAMINATION: US arterial duplex LE RT HISTORY: swelling of the right leg with pain into groin COMPARISON: No relevant comparison available. TECHNIQUE: Color duplex Doppler ultrasound evaluation analysis was performed in the usual manner. FINDINGS: Monophasic waveform throughout the right lower extremity. Normal waveform within left iliac artery, but still markedly elevated velocity. External Iliac: 270 cm/s / 60 cm/s Common Femoral: 137 cm/s / 23 cm/s Superficial Femoral Proximal: 159 cm/s / 47 cm/s Mid: 278 cm/s / 79 cm/s Distal: 226 cm/s / 75 cm/s Popliteal Proximal: 226 cm/s / 67 cm/s Posterior Tibial Proximal: 161 cm/s / 54 cm/s Mid: 101 cm/s / 26 cm/s Distal: 140 cm/s / 40 cm/s Anterior Tibial Proximal: 139 cm/s / 32 cm/s Mid: 93 cm/s / 30 cm/s Distal: 91 cm/s / 20 cm/s US/US arterial duplex LE RT IMPRESSION: 1. Markedly elevated flow velocity and abnormal monophasic waveform throughout the right lower extremity without appreciable significant vessel narrowing or atherosclerotic disease. 2. Normal triphasic waveform, but markedly elevated flow velocity within LEFT external iliac artery suggesting high flow rate throughout both extremities from a central cause/rapid heart rate or high output volume. Electronically authenticated by: MARGARET WEEKS Date: 04/01/2024 16:14
[2024-04-01 13:57] LABS: INR 1.62; Partial Thromboplastin Time 33.6 sec (22.3-36.2); Prothrombin Time 16.4 sec (9.0-11.6)
[2024-04-01] MEDS: LACTATED RINGER'S SOLUTION 1,000 ML 100 ML IV (14:04)
[2024-04-01] MEDS: MORPHINE SULFATE 2 MG/ML SYRINGE IV ×3 (14:10→23:28)
[2024-04-01] MEDS: SPIRONOLACTONE 25 MG TABLET 50 MG PO (14:10)
[2024-04-01] MEDS: MULTIVITAMIN TABLET 1 TAB PO (14:10)
[2024-04-01] MEDS: ONDANSETRON PF 4 MG/2 ML VIAL IV (14:10)
[2024-04-01] MEDS: FUROSEMIDE 20 MG TABLET PO (14:10)
[2024-04-01] MEDS: VANCOMYCIN HCL 1,750 MG in 0.9 % SODIUM CHLORIDE 500 ML 250 MG IV (14:52)
--- NOTE | 2024-04-01 15:06 | PC.NURSE ---
right leg photos
[2024-04-01] MEDS: IMIPENEM/CILASTATIN SODIUM 500 MG in 0.9 % SODIUM CHLORIDE 100 ML 200 MG IV ×2 (17:32→23:31)
[2024-04-01] MEDS: LACTULOSE 10 GM/15 ML UD CUP 20 GM PO (20:51)
[2024-04-01] MEDS: OXYCODONE HCL 5 MG TABLET PO (23:28)
[2024-04-02] VITALS (8 sets, daily range): BP systolic 104–119; BP diastolic 60–71; PULSE 78–89; TEMP 36.6–36.9; O2SAT 92–99
[2024-04-02] MEDS: VANCOMYCIN HCL 1,750 MG in 0.9 % SODIUM CHLORIDE 500 ML 250 MG IV ×2 (03:25→17:26)
[2024-04-02] MEDS: LACTATED RINGER'S SOLUTION 1,000 ML 100 ML IV (03:26)
[2024-04-02] MEDS: IMIPENEM/CILASTATIN SODIUM 500 MG in 0.9 % SODIUM CHLORIDE 100 ML 200 MG IV ×4 (05:39→22:56)
[2024-04-02] MEDS: OXYCODONE HCL 5 MG TABLET PO (06:16)
[2024-04-02] MEDS: MORPHINE SULFATE 2 MG/ML SYRINGE IV ×2 (06:16→19:26)
[2024-04-02] MEDS: ONDANSETRON PF 4 MG/2 ML VIAL IV ×2 (06:18→19:26)
[2024-04-02 07:00] LABS: Basophils Percent Auto 0.4 % (0.2-2.0); Eosinophils Absolute Auto 0.2 10^3/uL (0.0-0.7); Eosinophils Percent Auto 2.6 % (0.9-7.0); Hematocrit 27.8 % (42.0-54.0); Hemoglobin 9.6 g/dL (14.0-18.0); Immature Granulocytes Abs Auto 0.06 10^3/uL (0.00-0.03); Immature Granulocytes Pct Auto 0.9 % (0.0-0.5); Lymphocytes Absolute Auto 0.9 10^3/uL (1.2-3.8); Lymphocytes Percent Auto 13.8 % (20.5-60.0); Mean Corpuscular HGB Conc 34.5 g/dL (29.9-35.2); Mean Corpuscular Hemoglobin 35.7 pg (25.9-34.0); Mean Corpuscular Volume 103.3 fL (80.0-94.0); Mean Platelet Volume 11.2 fL (9.5-13.5); Monocytes Absolute Auto 0.7 10^3/uL (0.3-0.8); Monocytes Percent Auto 10.9 % (1.7-12.0); Neutrophils Absolute Auto 4.9 10^3/uL (1.4-6.5); Neutrophils Percent Auto 71.4 % (43.0-75.0); Platelet Count 45 10^3/uL (150-450); Red Blood Count 2.69 10^6/uL (4.70-6.10); Red Cell Distribution Width 15.1 % (11.0-15.0); White Blood Count 6.8 10^3/uL (4.0-11.0)
[2024-04-02 07:19] LABS: Alanine Aminotransferase 47 U/L (16-63); Albumin Globulin Ratio 0.7; Albumin Level 2.1 g/dL (3.4-5.0); Alkaline Phosphatase 192 U/L (46-116); Anion Gap 7.8; Aspartate Amino Transferase 55 U/L (15-37); BUN Creatinine Ratio 10.6; Bilirubin Total 4.7 mg/dL (0.2-1.0); Carbon Dioxide 27.1 mmol/L (21.0-32.0); Chloride 106 mmol/L (98-107); Estimated GFR (African America >60 (>=60); Estimated GFR (Non-African Ame >60 (>=60); Globulin 3.1 g/dL; Glucose 124 mg/dL (74-106); Potassium 3.9 mmol/L (3.5-5.1); Sodium 137 mmol/L (136-145); Total Protein 5.2 g/dL (6.4-8.2)
[2024-04-02] MEDS: SPIRONOLACTONE 25 MG TABLET 50 MG PO (08:15)
[2024-04-02] MEDS: MULTIVITAMIN TABLET 1 TAB PO (08:15)
[2024-04-02] MEDS: FUROSEMIDE 20 MG TABLET PO (08:15)
[2024-04-02] MEDS: LACTULOSE 10 GM/15 ML UD CUP 20 GM PO ×2 (08:15→20:30)
[2024-04-02 08:25] LABS: Ammonia 72 umol/L (11-32)
--- NOTE | 2024-04-02 09:01 | P.PN_ITS ---
Progress Note: Subjective Subjective Interval history: Patient still with significant pain in the right lower extremity, still some bladder spasms from the UTI, overall does feel slightly better than the previous day. Exam Constitutional Vital Signs, click to edit/add: Last Vital Signs Temp 98.0 F 04/02/24 07:52 Pulse 78 04/02/24 07:52 Resp 16 04/02/24 07:52 BP 106/60 04/02/24 07:52 Pulse Ox 92 L 04/02/24 07:52 O2 Del Method Room Air 04/02/24 07:52 Documenting provider has reviewed patient's vital signs: yes Common normals: no apparent distress (Mild distress when moving R leg) Chest Common normals: inspection of chest normal Respiratory Common normals: normal respiratory effort, no retractions and no use of accessory muscles Cardio Common normals: regular rate and regular rhythm GI Common normals: Normal to inspection, nondistended, normoactive bowel sounds present, soft to palpation and non-tender Extremity Common normals: abnormal to inspection (Swelling erythema right lower extremity, positive calor and dolor) Progress Note: Objective Labs Labs: Short CBC 04/01/24 04/02/24 Range/Units 11:00 06:28 WBC 12.0 H 6.8 (4.0-11.0) 10^3/uL Hgb 11.0 L 9.6 L (14.0-18.0) g/dL Hct 32.2 L 27.8 L (42.0-54.0) % Plt Count 48 L 45 L (150-450) 10^3/uL BMP 04/01/24 04/02/24 11:00 06:28 Sodium 133 L 137 Potassium 4.1 3.9 Chloride 101 106 Carbon Dioxide 26.0 27.1 BUN 10.0 7.0 Creatinine 0.73 0.66 L Glucose 193 H 124 H Calcium 8.7 8.0 L Liver Function 04/01/24 04/02/24 Range/Units 11:00 06:28 Total Bilirubin 7.0 H 4.7 H (0.2-1.0) mg/dL Direct Bilirubin 1.7 H* (0.0-0.2) mg/dL AST 68 H 55 H (15-37) U/L ALT 61 47 (16-63) U/L Alkaline Phosphatase 174 H 192 H (46-116) U/L Albumin 2.5 L 2.1 L (3.4-5.0) g/dL Urine 04/01/24 Range/Units 10:39 Urine Color Dk yellow (YELLOW) Urine Clarity Cloudy A (CLEAR) Urine pH 6.0 (5.0-9.0) Ur Specific [place] 1.020 (1.005-1.025) Urine Protein 30 A (NEG/TRACE) mg/dL Urine Glucose (UA) Negative (NEGATIVE) mg/dL Progress Note: A&P Assessment and Plan (1) Cellulitis of right leg: (2) Urinary tract infection: Qualifiers: Hematuria presence: without hematuria Urinary tract infection type: acute cystitis Qualified Code(s): N30.00 - Acute cystitis without hematuria (3) Hypertension: Qualifiers: Hypertension type: primary hypertension Qualified Code(s): I10 - Essential (primary) hypertension (4) Liver cirrhosis, alcoholic: Qualifiers: Ascites presence: without ascites Qualified Code(s): K70.30 - Alcoholic cirrhosis of liver without ascites (5) Warm autoimmune hemolytic anemia: (6) Hyperbilirubinemia: Plan Admission findings: Uncontrolled hypertension, leukocytosis, thrombocytopenia, right lower extremity erythema, positive UA-right lower extremity cellulitis and acute UTI Cellulitis of right leg: No DVT on ultrasound, good circulation on arterial studies, leg somewhat improved with current antibiotic regiment, will maintain that as leukocytosis is improving Urinary tract infection: With white blood cell count improving, continue with current antibiotic regiment, culture results hopefully back tomorrow but more likely in 2 days. Hypertension: Improved this morning, continue with current medications Liver cirrhosis, alcoholic: Alcoholic cirrhosis of liver without ascites -- bilirubin is improved today. Continue to monitor Warm autoimmune hemolytic anemia: Treating as an outpatient Hyperbilirubinemia: Improved today. Hyperammonemia-patient not taking lactulose consistently-maintain current home dosing, see if improves tomorrow. Coagulopathy secondary to alcoholic liver cirrhosis-no signs of active bleeding, consider repeat Thrombocytopenia-likely secondary to his alcoholic liver disease-continue to monitor Hyponatremia-improved back to baseline Hyperglycemia on admission-improved this morning Severe protein calorie malnutrition based on NIH criteria for albumin-diet management Admission status: Patient with failed outpatient treatment of right lower extremity cellulitis and acute UTI, high risk for progression of sepsis as he had this in the past. Continue current antibiotic regiment. Medically necessary treatment will definitely span 2 midnights. Less than 50% chance to be discharged tomorrow. More likely discharge in 2 days. Maintain inpatient status
[2024-04-02] MEDS: KETOROLAC TROMETHAMINE 30 MG/ML VIAL IVP (09:19)
[2024-04-02] MEDS: DOCUSATE SODIUM 100 MG CAPSULE 200 MG PO (14:24)
[2024-04-02] MEDS: TRAMADOL HCL 50 MG TABLET PO ×2 (14:24→20:30)
[2024-04-02] MEDS: ENSURE HP 237 ML LIQUID PO (20:30)
[2024-04-03] MEDS: TRAMADOL HCL 50 MG TABLET PO (02:18)
[2024-04-03] MEDS: MORPHINE SULFATE 2 MG/ML SYRINGE IV (02:18)
[2024-04-03] MEDS: VANCOMYCIN HCL 1,750 MG in 0.9 % SODIUM CHLORIDE 500 ML 250 MG IV (02:19)
[2024-04-03 04:00] VITALS: BP 98/59; PULSE 78; TEMP 36.9; O2SAT 96
[2024-04-03] MEDS: IMIPENEM/CILASTATIN SODIUM 500 MG in 0.9 % SODIUM CHLORIDE 100 ML 200 MG IV (04:51)
[2024-04-03 07:16] VITALS: BP 111/67; PULSE 72; TEMP 36.7; O2SAT 95
[2024-04-03 08:05] LABS: Basophils Percent Auto 0.6 % (0.2-2.0); Eosinophils Absolute Auto 0.3 10^3/uL (0.0-0.7); Eosinophils Percent Auto 4.7 % (0.9-7.0); Hematocrit 29.9 % (42.0-54.0); Hemoglobin 10.6 g/dL (14.0-18.0); Immature Granulocytes Abs Auto 0.14 10^3/uL (0.00-0.03); Immature Granulocytes Pct Auto 2.1 % (0.0-0.5); Lymphocytes Percent Auto 14.4 % (20.5-60.0); Mean Corpuscular HGB Conc 35.5 g/dL (29.9-35.2); Mean Corpuscular Hemoglobin 36.4 pg (25.9-34.0); Mean Corpuscular Volume 102.7 fL (80.0-94.0); Mean Platelet Volume 11.2 fL (9.5-13.5); Monocytes Absolute Auto 0.7 10^3/uL (0.3-0.8); Monocytes Percent Auto 9.5 % (1.7-12.0); Neutrophils Absolute Auto 4.7 10^3/uL (1.4-6.5); Neutrophils Percent Auto 68.7 % (43.0-75.0); Platelet Count 61 10^3/uL (150-450); Red Blood Count 2.91 10^6/uL (4.70-6.10); White Blood Count 6.8 10^3/uL (4.0-11.0)
[2024-04-03 08:06] LABS: Ammonia 73 umol/L (11-32)
[2024-04-03 08:15] LABS: Alanine Aminotransferase 55 U/L (16-63); Albumin Globulin Ratio 0.6; Albumin Level 2.2 g/dL (3.4-5.0); Alkaline Phosphatase 193 U/L (46-116); Aspartate Amino Transferase 69 U/L (15-37); BUN Creatinine Ratio 14.8; Bilirubin Total 4.3 mg/dL (0.2-1.0); Calcium 8.1 mg/dL (8.5-10.1); Carbon Dioxide 27.3 mmol/L (21.0-32.0); Chloride 103 mmol/L (98-107); Estimated GFR (African America >60 (>=60); Estimated GFR (Non-African Ame >60 (>=60); Globulin 3.5 g/dL; Glucose 99 mg/dL (74-106); Potassium 4.3 mmol/L (3.5-5.1); Sodium 136 mmol/L (136-145); Total Protein 5.7 g/dL (6.4-8.2)
[2024-04-03] MEDS: LACTULOSE 10 GM/15 ML UD CUP 20 GM PO (08:58)
[2024-04-03] MEDS: FUROSEMIDE 20 MG TABLET PO (08:58)
[2024-04-03] MEDS: SPIRONOLACTONE 25 MG TABLET 50 MG PO (08:58)
[2024-04-03] MEDS: MULTIVITAMIN TABLET 1 TAB PO (08:58)
--- NOTE | 2024-04-03 10:22 | PM.DS1 ---
DS: Providers Provider Date of admission: 04/01/24 12:55 Primary care physician: Crow Prince MD Admitting clinician: Joy Viramontes Attending physician on admission: Joy Viramontes Attending physician on discharge: Shaikh Laurie Discharging clinician: Shaikh Laurie Anticipated date of discharge: 04/03/24 DS: Diagnosis Discharge Diagnosis (1) Cellulitis of right leg: Assessment and plan: Improved. Minimal residual swelling/skin discoloration. Cultures negative. Stable for discharge. (2) Urinary tract infection: Assessment and plan: Urine culture pending. No urinary symptoms. Stable for discharge. Qualifiers: Hematuria presence: without hematuria Urinary tract infection type: acute cystitis Qualified Code(s): N30.00 - Acute cystitis without hematuria (3) Hypertension: Assessment and plan: C/w home medications Qualifiers: Hypertension type: primary hypertension Qualified Code(s): I10 - Essential (primary) hypertension (4) Liver cirrhosis, alcoholic: Assessment and plan: C/w Furosemide, lactulose. C/w folate. Qualifiers: Ascites presence: without ascites Qualified Code(s): K70.30 - Alcoholic cirrhosis of liver without ascites (5) Warm autoimmune hemolytic anemia: Assessment and plan: C/w mycophenolate. (6) Hyperbilirubinemia: Assessment and plan: Chronic, due to liver cirrhosis and warm AI Hemolytic anemia (7) Hyperammonemia: Assessment and plan: Chronic, not compliant with lactulose. 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 He also had urinary symptoms consistent with UTI. Admitted for inpatient treatment with broad spectrum abx due to hx immunosuppression from mycophenolate, liver cirrhosis. Treated with Vancomycin/imipenem. US negative for DVT. No sig occlusion/compromised blood flow on arterial duplex. Patient feeling much better. Minimal residual skin discoloration and swelling seen today on exam. Cultures are negative so far. Patient is stable for discharge on oral doxycycline for cellulitis and keflex for UTI. Status at Discharge Functional status at discharge: independent ambulation Overall status at discharge: patient is back to baseline Time Spent with Patient Time attestation: Total time spent providing and/or coordinating discharge services: Time spent: greater than 30 minutes Exam Constitutional Vital Signs, click to edit/add: Last Vital Signs Temp 98.0 F 04/03/24 07:16 Pulse 72 04/03/24 07:16 Resp 16 04/03/24 07:19 BP 111/67 04/03/24 07:16 Pulse Ox 95 04/03/24 07:16 O2 Del Method Room Air 04/03/24 07:16 O2 Flow Rate 2 04/03/24 04:00 Documenting provider has reviewed patient's vital signs: yes Common normals: no apparent distress and oriented x3 General appearance: cooperative Respiratory Common normals: normal respiratory effort and clear to auscultation bilaterally Effort & inspection: able to speak in complete sentences Auscultation: clear to auscultation bilaterally Cardio Common normals: regular rate, S1 normal heart sound and S2 normal heart sound Rate: regular rate Heart sounds: S1 normal and S2 normal GI Common normals: Normal to inspection, nondistended, normoactive bowel sounds present, soft to palpation, non-tender and no hepatosplenomegaly Palpation: soft and no hepatosplenomegaly Extremity Other: Right LE -swelling. Skin discoloration noted. Neuro Common normals: oriented x3, moves all extremities and no focal motor deficits Psych Common normals: mental status grossly normal, denies hallucinations, denies homicidal ideation and denies suicidal ideation DS: Data Data Completed and Pending Labs on day of discharge: Labs from last 24 hours 04/03/24 07:07 WBC 6.8 RBC 2.91 L Hgb 10.6 L Hct 29.9 L MCV 102.7 H MCH 36.4 H MCHC 35.5 H RDW 15.0 Plt Count 61 L MPV 11.2 Neut % (Auto) 68.7 Lymph % (Auto) 14.4 L Barber % (Auto) 9.5 Eos % (Auto) 4.7 Baso % (Auto) 0.6 Neut # (Auto) 4.7 Lymph # (Auto) 1.0 L Barber # (Auto) 0.7 Eos # (Auto) 0.3 Baso # (Auto) 0.0 Abs Immat Gran (auto) 0.14 H Imm/Tot Granulo (auto) 2.1 H Sodium 136 Potassium 4.3 Chloride 103 Carbon Dioxide 27.3 Anion Gap 10.0 BUN 9.0 Creatinine 0.61 L Est GFR ( Amer) >60 Est GFR (Non-Af Amer) >60 BUN/Creatinine Ratio 14.8 Glucose 99 Calcium 8.1 L Total Bilirubin 4.3 H AST 69 H ALT 55 Alkaline Phosphatase 193 H Ammonia 73 H* Total Protein 5.7 L Albumin 2.2 L Globulin 3.5 Albumin/Globulin Ratio 0.6 Discharge Plan Discharge Disposition: Home, Self-Care Condition: Good Discharge Medications: New doxycycline hyclate 100 mg tablet 100 mg PO BID 7 Days Qty: 14 0RF cephalexin 500 mg capsule 500 mg PO Q8H 5 Days Qty: 15 0RF Continued mycophenolate mofetil 500 mg tablet 500 mg PO BID folic acid 1 mg tablet 1 mg PO DAILY spironolactone 50 mg tablet 50 mg PO DAILY multivitamin with folic acid [Tab-A-Scott] 400 mcg tablet 1 tab PO DAILY lactulose 10 gram/15 mL (15 mL) solution 30 ml PO BID Rx Instructions: can take more if needed to have 3-4 bm per day furosemide 20 mg tablet 20 mg PO DAILY ondansetron 4 mg tablet,disintegrating 4 mg PO TID Activity: increase activity as tolerated Diet: advance to your usual diet Print Language: Amharic Patient Instructions: Cellulitis (ED) Forms: Portal Instructions Follow Up Appointments: Follow up with PCP in one week
--- NOTE | 2024-04-04 13:59 | CM.DCFOLLOWU ---
Person spoke with: patient How are you feeling? went to work and leg is swelling more How is your pain? leg is swelling more, advised to go to an ED or call PROCESS TRAINER to get scheduled to see Did you understand your discharge instructions? yes Do you have any questions about your discharge instructions? no Were you given any prescriptions at discharge? yes Were you able to get your prescriptions filled? yes Do you understand how to take your medications as ordered? yes Do you have any questions about your follow up appointment and do you plan to keep your follow up appointment? no questions and advised patient to get ahold of his PROCESS TRAINER STACIE or to to an ED if continues to get worse Is there anything else that you would like to discuss? no Questions/Comments/Concerns/Other: none
[2024-04-04 21:07] LABS: Neisseria gonorrhoeae, NAA Negative (Negative)
== END 2024-04-03 11:05 | disposition home or self-care (01) | DRG 602 ==
LOC: ER 12:35 → MS 13:03
PROVIDERS: Family Medicine; Admitting Provider Internal Medicine; Emergency Provider Emergency Medicine; PCP Radiology Diagnostic Radiology; Visit Provider Internal Medicine
DX: L03.115 Cellulitis of right lower limb (principal); E43 Unspecified severe protein-calorie malnutrition; N30.00 Acute cystitis without hematuria; D59.11 Warm autoimmune hemolytic anemia; E72.20 Disorder of urea cycle metabolism, unspecified; E87.1 Hypo-osmolality and hyponatremia; D68.9 Coagulation defect, unspecified; D84.9 Immunodeficiency, unspecified; I10 Essential (primary) hypertension; K70.30 Alcoholic cirrhosis of liver without ascites; E80.6 Other disorders of bilirubin metabolism; D69.6 Thrombocytopenia, unspecified; R73.9 Hyperglycemia, unspecified; B96.20 Unspecified Escherichia coli [E. coli] as the cause of diseases classified elsewhere; Z91.148 Patient's other noncompliance with medication regimen for other reason; Z68.23 Body mass index [BMI] 23.0-23.9, adult; Z87.891 Personal history of nicotine dependence; Z79.899 Other long term (current) drug therapy
CPT/HCPCS: 36415; 80048; 80053; 80076; 81001; 82140; 83605; 85025; 85610; 85730; 87040; 87086; 87150; 87186; 87491; 87591; 93926; 93971; 96365; 96366; 96367; 96375; 96376; 99285; J0743; J1885; J2270; J2405; J3370

== ENCOUNTER 2024-04-11 10:49 | Outpatient (OUT) | payer OTHER, SELFPAY ==
--- NOTE | 2024-04-11 10:55 | VEIN_ITS ---
Patient Name: WILL ANDERSON MR#: [id number] : 1985 Exam Date: 04/11/2024 Ordering Doctor: DR JOHN ANDREA M.D. RADIOLOGY REPORT PROCEDURE: [facility] - OFFICE VISIT FOLLOW UP COMPARISON: US ARTERIAL DUPLEX LE RT, 04/01/2024. [facility], 10/27/2023. PROGRESS NOTES: The patient reports recent acute onset of right lower extremity discomfort with development of pain and right lower extremity during walking which resolves with rest. Physical exam demonstrates no appreciable physical abnormality to account for patient's symptoms. Review of the arterial and venous ultrasound of the right lower extremity performed on April 01, 2024 raise concern for central arterial narrowing within the right pelvis. VEIN/[facility] IMPRESSION: 1. Right lower extremity claudication with activity which resolves with rest. Patient describes this as acute onset occurring 1-2 weeks ago. 2. Recent ultrasound examinations suggest right pelvis/iliac artery pathology. No symptoms within left lower extremity. Normal waveform and flow within left iliac artery on prior ultrasound. PLAN: CTA abdominal aorta with lower extremity runoff for further evaluation. Dictated by: Irineo Alvarez M.D. on 04/11/2024 at 13:18 Approved by: Irineo Alvarez M.D. on 04/11/2024 at 13:24
--- NOTE | 2024-04-11 10:55 | VEIN_ITS ---
The [address] [address] Patient Name: WILL ANDERSON MRN: [id number] date: 1985 Sex: M Assigned Patient Location: Current Patient Location: Accession/Order Number: [id number] Exam Date: 04/11/2024 10:57 Report Date: 04/11/2024 15:19 At the request of: JOHN ANDREA Procedure: VC SEGMENTAL PRESSURES EXAM: VC SEGMENTAL PRESSURES HISTORY: Leg pain. Claudication on the right. I73.9 COMPARISON: None. TECHNIQUE: Resting ABIs and segmental limb pressures FINDINGS: Right resting BRITTANY normal at 1.09. Left resting BRITTANY normal at 1.17. Waveforms multiphasic. No pressure gradients were noted. VEIN/VC SEGMENTAL PRESSURES IMPRESSION: Normal resting ABIs. No pressure gradients noted. Electronically authenticated by: Elder FREED Date: 04/11/2024 15:19
--- NOTE | 2024-04-11 11:50 | V.VEINS.HP ---
Vital Signs 04/11/24 11:56 Height 5 ft 7 in Weight 70.307 kg BMI 24.3 BP 106/56 BP Location Left Brachial BP Position Supine BP Cuff Size Adult BP Source Manual Cuff Respiration 16 Pulse 60 Pulse Source Monitor Pulse Oximetry (%) 99 Oxygen Delivery Method Room Air Varicose Veins Patient in this day with c/o right leg pain. Patient is a past vein patient and wishes to be evaluated. Patient states that he noted redness and edema to right lower leg 04/07/2024 in the early A.M. Patient said he endured it for approxmately 24 hours and came to ER at [facility] on 04/07/2024. He was admitted for right lower leg cellulitis and ruled out for DVT. IIrineo MD personally performed the services described in this documentation, as scribed by Marlo Foster RN in my presence and it is both accurate and complete. IMarlo RN, am scribing for, and in the presence of, Dr. Irineo Alvarez and in the presence of the patient. Review of Systems ROS Cardiovascular Reports: edema Integumentary/Breast Reports: itching, redness, skin pain, skin tenderness, skin swelling and changes in skin color Neurological Reports: weakness in extremities Hematologic/Lymphatic Reports: easy bruising and easy bleeding [facility] Medical History (Updated 04/11/24 @ 12:01 by Marlo Foster) Peripheral vascular disease, unspecified ?I73.9 - Peripheral vascular disease, unspecified (ICD-10) Hyperammonemia ?E72.20 - Disorder of urea cycle metabolism, unspecified (ICD-10) Urinary tract infection ?N39.0 - Urinary tract infection, site not specified (ICD-10) Cellulitis of right leg ?L03.115 - Cellulitis of right lower limb (ICD-10) Hypertension ?I10 - Essential (primary) hypertension (ICD-10) Esophageal varices determined by endoscopy ?I85.00 - Esophageal varices without bleeding (ICD-10) Cellulitis of left leg ?L03.116 - Cellulitis of left lower limb (ICD-10) Fracture, jaw ?S02.609A - Fracture of mandible, unspecified, initial encounter for closed fracture (ICD-10) Immunosuppressed status ?D84.9 - Immunodeficiency, unspecified (ICD-10) Hyperbilirubinemia ?E80.6 - Other disorders of bilirubin metabolism (ICD-10) 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 Smoking status: Former smoker Do you use any of these nicotine containing products: smokeless tobacco Non-prescribed substance use: denies use Previous occupational history: [employer] Highest level of school completed/degree received: high school graduate Are you now , , , , never or living with a partner: never In a typical week, how many times do you talk on the telephone with family, friends, or neighbors: 3 or more times per week How often do you get together with friends or relatives: twice per week How often do you attend religion or catholic services: never Do you belong to any clubs or organizations such as religion groups unions, fraternal or athletic groups, or school groups: no Total score: 1 Score interpretation: A score of less than or equal to 1 indicates the most socially isolated. Little interest or pleasure in doing things: not at all Feeling down, depressed, or hopeless: not at all Feel stressed/tense/nervous/anxious/difficulty sleeping: to some extent Life stressor details: Pain in legs Do you think of yourself as: straight/heterosexual Gender Identity: female Meds Home Medications and Allergies Home Medications ?Medication ?Instructions ?Recorded ?Confirmed ?Type folic acid 1 mg tablet 1 mg PO DAILY 08/12/23 04/01/24 History lactulose 10 gram/15 mL (15 mL) 30 ml PO BID 08/12/23 04/01/24 History oral solution multivitamin with folic acid 400 1 tab PO DAILY 08/12/23 04/01/24 History mcg tablet (Tab-A-Scott) mycophenolate mofetil 500 mg tablet 500 mg PO BID 08/12/23 04/01/24 History spironolactone 50 mg tablet 50 mg PO DAILY 08/12/23 04/01/24 History furosemide 20 mg tablet 20 mg PO DAILY 04/01/24 04/01/24 History ondansetron 4 mg disintegrating 4 mg PO TID 04/01/24 04/01/24 History tablet cephalexin 500 mg capsule 500 mg PO Q8H 5 days #15 caps 04/03/24 Rx doxycycline hyclate 100 mg tablet 100 mg PO BID 7 days #14 tabs 04/03/24 Rx Allergies Allergy/AdvReac Type Severity Reaction Status Date / Time amoxicillin Allergy Severe Unknown Verified 04/01/24 10:29 Penicillins Allergy Severe Unknown Verified 04/01/24 10:29 perflutren [From Definity] Allergy Intermediate Muscle Pain Verified 04/11/24 13:07 Exam Constitutional Documenting provider has reviewed patient's vital signs: yes Common normals: oriented x3 Lymph Lymphatic: no lymphedema noted Cardio Peripheral pulses: dorsalis pedis pulses present Extremity Common normals: normal capillary refill General: calf tenderness and edema Right lower extremity: lower leg Right lower leg: inspection and palpation Left lower extremity: lower leg Left lower leg: inspection and palpation Neuro Common normals: oriented x3 Assessment and Plan Assessment and Plan (1) Peripheral vascular disease, unspecified: Plan Patient to be referred to Dr. Blackwood to r/o PAD Irineo Mooney MD personally performed the services described in this documentation, as scribed by Marlo Foster RN in my presence and it is both accurate and complete. Marlo Mooney RN, am scribing for, and in the presence of, Dr. Irineo Alvarez and in the presence of the patient.
[2024-04-11 11:56] VITALS: BP 106/56; PULSE 60; O2SAT 99; BMI 24.3
--- NOTE | 2024-04-11 12:01 | W.VEIN ---
Discharge Plan Discharge Disposition: Home, Self-Care Plan of Treatment: CTA with runoff of jordanadmen and f/u with Dr. Escobedo Print Language: Filipino Referrals: Radha Bertrand MD [Physician] - (Patient was recently seen in ER and had right leg cellulitis, a PVR was done 04/11/2024 atherosclerosis with claudication was noted, a CT with runoff additionally ordered ) Discharge Date/Time: 04/11/24 15:50
--- NOTE | 2024-04-11 12:32 | CT_ITS ---
[address] [address] Patient Name: WILL ANDERSON MRN: [id number] date: 1985 Sex: M Assigned Patient Location: Current Patient Location: Accession/Order Number: [id number] Exam Date: 04/11/2024 12:50 Report Date: 04/11/2024 15:37 At the request of: MARGARET WEEKS Procedure: CT angio abd aorta runoff EXAMINATION: CT angio abd aorta runoff HISTORY: [id number] Atherosclerosis of [place] arteries LE w/claudication COMPARISON: Ultrasound arterial duplex lower extremity right 04/01/2024, ultrasound venous Doppler lower extremity right 04/01/2024 TECHNIQUE: After obtaining the patient's consent, CT images of the abdomen, pelvis, and lower extremities were obtained without and with non-ionic intravenous contrast material. Multi-planar reformatted/3-D images were created to optimize visualization of vascular anatomy. Dose reduction techniques were achieved by using automated exposure control and/or adjustment of mA and/or kV according to patient size and/or use of iterative reconstruction technique. FINDINGS: AORTA: No aneurysm or dissection. Normal renal and mesenteric vessels. ILIAC: No aneurysm or dissection. RIGHT LEG: No atherosclerotic disease, stenosis, or occlusion. The veins of the right lower extremity are also opacified with contrast; no visible arteriovenous fistula. The veins are opacified throughout the lower extremity and into the distal foot. LEFT LEG: No significant stenosis or occlusion. OTHER: Recannulization of the umbilical arteries extending from liver to the right and left common femoral veins. LUNG BASES: No visible pulmonary or pleural disease. LIVER: Nodular liver suggestive of cirrhosis. BILIARY: Multiple stones within gallbladder. Wall thickness at upper limits of normal. No abnormal duct dilation. PANCREAS: Atrophy. No lesion, fluid collection, or ductal dilatation. SPLEEN: No enlargement or focal lesion. ADRENALS: No mass or enlargement. KIDNEYS: No mass, obstruction, or calcification. BOWEL/MESENTERY: No visible mass, obstruction, or bowel wall thickening. RETROPERITONEUM: No mass or adenopathy. PELVIC NODES: No adenopathy. URINARY BLADDER: No visible focal wall thickening, lesion, or calculus. PELVIC ORGANS: No visible mass. Pelvic organs appropriate for patient age. ABDOMINAL WALL: No mass or hernia. BONES: No bony lesion or fracture. OTHER: Subcutaneous edema within right lower extremity. CT/CT angio abd aorta runoff IMPRESSION: 1. Nodular liver and collateral circulation compatible with portal hypertension. 2. No significant atherosclerotic disease or narrowing of the lower extremity arteries with specific attention to the right. 3. Contrast filled right leg deep veins with contrast density greatest distally and becoming less dense within the iliac veins and inferior vena cava suggesting normal, but very rapid capillary arterial to venous transfer. No appreciable arteriovenous fistula. No contrast yet within the left lower extremity deep veins. Etiology for rapid inflow and outflow of blood within the right leg on today's study and a rapid flow rate seen on prior ultrasound study is unknown. 4. Right lower extremity subcutaneous edema. 5. Vascular surgery consultation is recommended. Electronically authenticated by: MARGARET WEEKS Date: 04/11/2024 15:37
== END 2024-04-11 15:50 | disposition home or self-care (01) ==
PROVIDERS: PCP Radiology Diagnostic Radiology; Visit Provider Radiology Diagnostic Radiology
DX: I73.9 Peripheral vascular disease, unspecified (principal)
CPT/HCPCS: 75635; 93923; G0463; Q9967

== ENCOUNTER 2024-04-14 13:03 | Inpatient (IN) | payer OTHER, SELFPAY ==
[2024-04-14] VITALS (25 sets, daily range): BP systolic 89–132; BP diastolic 45–74; PULSE 80–98; TEMP 36.3–37.7; O2SAT 95–100; BMI 21.9; BMI 23.8
--- NOTE | 2024-04-14 13:31 | ED.GENADUL1 ---
HPI HPI - General Adult General Chief complaint: Extremity Injury, Lower Stated complaint: swelling in right leg Time Seen by Provider: 04/14/24 13:16 Source: patient Mode of arrival: walk-in Limitations: no limitations History of Present Illness HPI narrative: Patient is a 38-year-old male with a history of cirrhosis who presents to the emergency department for the evaluation of right leg swelling and pain. Patient was being seen by vascular surgery for an abnormal CT of the lower extremities, patient became shaky and unsteady on his feet. He was referred to the ER for further evaluation. He finished antibiotics 1 week ago for cellulitis in the right lower extremity after being admitted to this hospital. He was in the vein and body clinic, had CT imaging of the lower extremities which was abnormal. Patient denies any new fevers but states he was nauseous earlier. He feels that the redness to the right lower extremity is improved however it is more swollen today. Related Data Home Medications ?Medication ?Instructions ?Recorded ?Confirmed lactulose 10 gram/15 mL (15 mL) 30 ml PO BID 08/12/23 04/14/24 oral solution multivitamin with folic acid 400 1 tab PO DAILY 08/12/23 04/14/24 mcg tablet (Tab-A-Scott) spironolactone 50 mg tablet 50 mg PO DAILY 08/12/23 04/14/24 furosemide 20 mg tablet 20 mg PO DAILY 04/01/24 04/14/24 ondansetron 4 mg disintegrating 4 mg PO TID 04/01/24 04/14/24 tablet Allergies Allergy/AdvReac Type Severity Reaction Status Date / Time amoxicillin Allergy Severe Unknown Verified 04/14/24 13:16 Penicillins Allergy Severe Unknown Verified 04/14/24 13:16 perflutren [From Definity] Allergy Intermediate Muscle Pain Verified 04/14/24 13:16 Opioid HPI Opioid Management Most Recent Opioid Data: Last Pain Scale 9 04/14/24 13:48 Last MAR Pain Assessment 04/14/24 13:48 Last ORT Total Score 2 04/01/24 13:15 Last ORT Risk Category Low Risk 04/01/24 13:15 Review of Systems ROS Constitutional Denies: fever or chills Ears, nose, mouth, and throat Denies: throat pain or nasal congestion Cardiovascular Denies: chest pain Respiratory Denies: shortness of breath Gastrointestinal Reports: nausea; Denies: vomiting or diarrhea Musculoskeletal Reports: extremity pain and extremity swelling; Denies: back pain or neck pain Integumentary/Breast Denies: rash Neurological Denies: headache Hematologic/Lymphatic Denies: easy bruising or easy bleeding [facility] Medical History (Updated 04/14/24 @ 15:43 by DARCIE Cast) Liver problem ?K76.9 - Liver disease, unspecified (ICD-10) Peripheral vascular disease, unspecified ?I73.9 - Peripheral vascular disease, unspecified (ICD-10) Hyperammonemia ?E72.20 - Disorder of urea cycle metabolism, unspecified (ICD-10) Urinary tract infection ?N39.0 - Urinary tract infection, site not specified (ICD-10) Cellulitis of right leg ?L03.115 - Cellulitis of right lower limb (ICD-10) Hypertension ?I10 - Essential (primary) hypertension (ICD-10) Esophageal varices determined by endoscopy ?I85.00 - Esophageal varices without bleeding (ICD-10) Cellulitis of left leg ?L03.116 - Cellulitis of left lower limb (ICD-10) Fracture, jaw ?S02.609A - Fracture of mandible, unspecified, initial encounter for closed fracture (ICD-10) Immunosuppressed status ?D84.9 - Immunodeficiency, unspecified (ICD-10) Hyperbilirubinemia ?E80.6 - Other disorders of bilirubin metabolism (ICD-10) 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 Smoking status: Former smoker Do you use any of these nicotine containing products: smokeless tobacco Non-prescribed substance use: denies use Previous occupational history: [employer] Highest level of school completed/degree received: high school graduate Are you now , , , , never or living with a partner: never In a typical week, how many times do you talk on the telephone with family, friends, or neighbors: 3 or more times per week How often do you get together with friends or relatives: twice per week How often do you attend congregation or worship services: never Do you belong to any clubs or organizations such as congregation groups unions, fraternal or athletic groups, or school groups: no Total score: 1 Score interpretation: A score of less than or equal to 1 indicates the most socially isolated. Little interest or pleasure in doing things: not at all Feeling down, depressed, or hopeless: not at all Feel stressed/tense/nervous/anxious/difficulty sleeping: to some extent Life stressor details: Pain in legs Do you think of yourself as: straight/heterosexual Gender Identity: female Exam Narrative Exam Narrative: Gen.: Awake, alert, in no distress Head: Normocephalic, atraumatic ENT: Moist mucous membranes Respiratory: No respiratory distress Extremities: 1+ DP pulse in the right lower extremity with diffuse swelling of the right calf, dusky appearance of the skin in the calf with no erythema, no open wounds or drainage. Psych: Normal mood and affect Neuro: No focal neuro deficit Skin: Warm, dry, intact Constitutional Vital Signs, click to edit/add: Last Vital Signs Temp 99.8 F 04/14/24 13:10 Pulse 98 H 04/14/24 13:27 Resp 16 04/14/24 13:10 BP 102/51 04/14/24 14:30 Pulse Ox 96 04/14/24 14:40 O2 Del Method Room Air 04/14/24 13:10 Course Vital Signs Vital signs: Vital Signs Temperature 99.8 F 04/14/24 13:10 Pulse Rate 98 H 04/14/24 13:10 Respiratory Rate 16 04/14/24 13:10 Blood Pressure 121/67 04/14/24 13:10 Pulse Oximetry 99 04/14/24 13:10 Oxygen Delivery Method Room Air 04/14/24 13:10 Temperature 99.8 F 04/14/24 13:10 Pulse Rate 98 H 04/14/24 13:27 Respiratory Rate 16 04/14/24 13:10 Blood Pressure 102/51 04/14/24 14:30 Pulse Oximetry 96 04/14/24 14:40 Oxygen Delivery Method Room Air 04/14/24 13:10 Medical Decision Making MDM Narrative Medical decision making narrative: I discussed the case with Dr. Bertrand for vascular surgery, he was concerned that the patient may have hypoglycemia or early sepsis prompting these constitutional symptoms in the office which is why he was sent to the ER. Dr. Bertrand will set up the patient for an angiogram, the vascular changes on the CT are chronic and can be evaluated as an outpatient. Patient was medicated for pain, sepsis labs were ordered. Patient had CT aorta with runoff done 3 days ago, he is under the care of vascular surgery although he is not in need of a transfer to a tertiary care facility emergently. Labs show bandemia, hyponatremia and patient was medicated for pain with Dilaudid. Due to an increase in swelling and pain to the right lower extremity, we are concerned for return of cellulitis. Patient admitted to the hospitalist for further evaluation and treatment. Vancomycin and imipenem given in the emergency department. Venous Doppler ultrasound obtained prior to admission to rule out DVT. Patient accepted to the hospitalist. SHARED APC VISIT, PHYSICIAN ATTESTATION: [id number] I performed a substantive part of the MDM during the patient?s E/M visit. I personally evaluated and examined the patient. I personally made or approved the documented management plan and acknowledge its risk of complications. Medical Records Medical records reviewed: Yes I reviewed the patient's medical records Lab Data Lab results reviewed: Yes I reviewed the patient's lab results Labs: Lab Results 04/14/24 04/14/24 04/14/24 Range/Units 13:36 13:42 13:56 WBC 8.9 (4.0-11.0) 10^3/uL RBC 3.30 L (4.70-6.10) 10^6/uL Hgb 11.8 L (14.0-18.0) g/dL Hct 33.3 L (42.0-54.0) % MCV 100.9 H (80.0-94.0) fL MCH 35.8 H (25.9-34.0) pg MCHC 35.4 H (29.9-35.2) g/dL RDW 15.4 H (11.0-15.0) % Plt Count 81 L (150-450) 10^3/uL MPV 10.7 (9.5-13.5) fL Seg Neuts % (Manual) 77.0 H (43.0-75.0) Band Neutrophils % 13.0 H (0-5) % Lymphocytes % (Manual) 4.0 L (20.5-60.0) % Monocytes % (Manual) 3.0 (1.7-12.0) % Eosinophils % (Manual) 2.0 (0.9-7.0) % Basophils % (Manual) 1.0 (0.2-2.0) % Neutrophils # (Manual) 6.85 H (1.4-6.5) 10^3/uL Band Neutrophils # 1.2 H (0.0-0.3) 10^3/uL Lymphocytes # (Manual) 0.35 L (1.20-3.80) 10^3/uL Monocytes # (Manual) 0.26 L (0.30-0.80) 10^3/uL Eosinophils # (Manual) 0.17 (0.00-0.70) 10^3/uL Basophils # (Manual) 0.08 (0.00-0.10) 10^3/uL Anisocytosis 1+ PT 15.5 H (9.0-11.6) sec INR 1.52 VBG pH 7.478 H (7.330-7.430) VBG pCO2 29.3 L (40.0-52.0) mmHg Sodium 125 L (136-145) mmol/L Potassium 4.3 (3.5-5.1) mmol/L Chloride 94 L (98-107) mmol/L Carbon Dioxide 24.9 (21.0-32.0) mmol/L Anion Gap 10.4 BUN 8.0 (7.0-18.0) mg/dL Creatinine 0.73 (0.70-1.30) mg/dL Est GFR ( Amer) >60 (>=60) Est GFR (Non-Af Amer) >60 (>=60) BUN/Creatinine Ratio 11.0 Glucose 101 (74-106) mg/dL Lactate 1.3 (0.4-2.0) mmol/L Calcium 8.4 L (8.5-10.1) mg/dL Magnesium 1.2 L (1.8-2.4) mg/dL Total Bilirubin 6.4 H (0.2-1.0) mg/dL AST 81 H (15-37) U/L ALT 56 (16-63) U/L Alkaline Phosphatase 235 H (46-116) U/L Total Protein 6.9 (6.4-8.2) g/dL Albumin 2.7 L (3.4-5.0) g/dL Globulin 4.2 g/dL Albumin/Globulin Ratio 0.6 Urine Color (YELLOW) Urine Clarity (CLEAR) Urine pH (5.0-9.0) Ur Specific [place] (1.005-1.025) Urine Protein (NEG/TRACE) mg/dL Urine Glucose (UA) (NEGATIVE) mg/dL Urine Ketones (NEGATIVE) mg/dL Urine Occult Blood (NEGATIVE) Urine Nitrite (NEGATIVE) Urine Bilirubin (NEGATIVE) Urine Urobilinogen (0.2-1.0) EU/dL Ur Leukocyte Esterase (NEGATIVE) 04/14/24 Range/Units 14:59 WBC (4.0-11.0) 10^3/uL RBC (4.70-6.10) 10^6/uL Hgb (14.0-18.0) g/dL Hct (42.0-54.0) % MCV (80.0-94.0) fL MCH (25.9-34.0) pg MCHC (29.9-35.2) g/dL RDW (11.0-15.0) % Plt Count (150-450) 10^3/uL MPV (9.5-13.5) fL Seg Neuts % (Manual) (43.0-75.0) Band Neutrophils % (0-5) % Lymphocytes % (Manual) (20.5-60.0) % Monocytes % (Manual) (1.7-12.0) % Eosinophils % (Manual) (0.9-7.0) % Basophils % (Manual) (0.2-2.0) % Neutrophils # (Manual) (1.4-6.5) 10^3/uL Band Neutrophils # (0.0-0.3) 10^3/uL Lymphocytes # (Manual) (1.20-3.80) 10^3/uL Monocytes # (Manual) (0.30-0.80) 10^3/uL Eosinophils # (Manual) (0.00-0.70) 10^3/uL Basophils # (Manual) (0.00-0.10) 10^3/uL Anisocytosis PT (9.0-11.6) sec INR VBG pH (7.330-7.430) VBG pCO2 (40.0-52.0) mmHg Sodium (136-145) mmol/L Potassium (3.5-5.1) mmol/L Chloride (98-107) mmol/L Carbon Dioxide (21.0-32.0) mmol/L Anion Gap BUN (7.0-18.0) mg/dL Creatinine (0.70-1.30) mg/dL Est GFR ( Amer) (>=60) Est GFR (Non-Af Amer) (>=60) BUN/Creatinine Ratio Glucose (74-106) mg/dL Lactate (0.4-2.0) mmol/L Calcium (8.5-10.1) mg/dL Magnesium (1.8-2.4) mg/dL Total Bilirubin (0.2-1.0) mg/dL AST (15-37) U/L ALT (16-63) U/L Alkaline Phosphatase (46-116) U/L Total Protein (6.4-8.2) g/dL Albumin (3.4-5.0) g/dL Globulin g/dL Albumin/Globulin Ratio Urine Color Lt. yellow (YELLOW) Urine Clarity Clear (CLEAR) Urine pH 7.0 (5.0-9.0) Ur Specific [place] <=1.005 A (1.005-1.025) Urine Protein Negative (NEG/TRACE) mg/dL Urine Glucose (UA) Negative (NEGATIVE) mg/dL Urine Ketones Negative (NEGATIVE) mg/dL Urine Occult Blood Negative (NEGATIVE) Urine Nitrite Negative (NEGATIVE) Urine Bilirubin Negative (NEGATIVE) Urine Urobilinogen 1.0 (0.2-1.0) EU/dL Ur Leukocyte Esterase Negative (NEGATIVE) Discharge Plan Discharge Chief Complaint: Extremity Injury, Lower Clinical Impression: Cellulitis of right leg, Hyponatremia Patient Disposition: Admitted as Observation Time of Disposition Decision: 15:42
[2024-04-14] MEDS: HYDROMORPHONE HCL 1 MG/ML CARTRIDGE IVP (13:48)
[2024-04-14] MEDS: ONDANSETRON PF 4 MG/2 ML VIAL IV ×2 (13:48→22:03)
[2024-04-14] MEDS: 0.9 % SODIUM CHLORIDE 1,000 ML 999 ML IV (13:48)
[2024-04-14 14:10] LABS: PCO2 VBG 29.3 mmHg (40.0-52.0); pH VBG 7.478 (7.330-7.430)
[2024-04-14 14:15] LABS: Hematocrit 33.3 % (42.0-54.0); Hemoglobin 11.8 g/dL (14.0-18.0); Mean Corpuscular HGB Conc 35.4 g/dL (29.9-35.2); Mean Corpuscular Hemoglobin 35.8 pg (25.9-34.0); Mean Corpuscular Volume 100.9 fL (80.0-94.0); Mean Platelet Volume 10.7 fL (9.5-13.5); Platelet Count 81 10^3/uL (150-450); Red Cell Distribution Width 15.4 % (11.0-15.0); White Blood Count 8.9 10^3/uL (4.0-11.0)
[2024-04-14 14:27] LABS: Band Neutrophils Absolute 1.2 10^3/uL (0.0-0.3); Basophils Abs Manual 0.08 10^3/uL (0.00-0.10); Eosinophils Absolute Manual 0.17 10^3/uL (0.00-0.70); Lymphocytes Absolute Manual 0.35 10^3/uL (1.20-3.80); Monocytes Absolute Manual 0.26 10^3/uL (0.30-0.80); Segmented Neut Absolute Manual 6.85 10^3/uL (1.4-6.5)
[2024-04-14 14:28] LABS: Anisocytosis 1+
[2024-04-14 14:30] LABS: INR 1.52; Prothrombin Time 15.5 sec (9.0-11.6)
[2024-04-14 14:33] LABS: Alanine Aminotransferase 56 U/L (16-63); Albumin Globulin Ratio 0.6; Albumin Level 2.7 g/dL (3.4-5.0); Alkaline Phosphatase 235 U/L (46-116); Anion Gap 10.4; Aspartate Amino Transferase 81 U/L (15-37); Bilirubin Total 6.4 mg/dL (0.2-1.0); Calcium 8.4 mg/dL (8.5-10.1); Carbon Dioxide 24.9 mmol/L (21.0-32.0); Chloride 94 mmol/L (98-107); Estimated GFR (African America >60 (>=60); Estimated GFR (Non-African Ame >60 (>=60); Globulin 4.2 g/dL; Glucose 101 mg/dL (74-106); Magnesium 1.2 mg/dL (1.8-2.4); Potassium 4.3 mmol/L (3.5-5.1); Sodium 125 mmol/L (136-145); Total Protein 6.9 g/dL (6.4-8.2)
[2024-04-14 14:35] LABS: Lactate/Lactic Acid 1.3 mmol/L (0.4-2.0)
[2024-04-14 15:18] LABS: Bilirubin Urine NEGATIVE (NEGATIVE); Blood Urine NEGATIVE (NEGATIVE); Clarity Urine CLEAR (CLEAR); Color Urine LT. YELLOW (YELLOW); Glucose Urine UA NEGATIVE (NEGATIVE); Ketones Urine NEGATIVE (NEGATIVE); Leukocyte Esterase Urine NEGATIVE (NEGATIVE); Nitrite Urine NEGATIVE (NEGATIVE); Protein Urine NEGATIVE (NEG/TRACE); Specific Gravity Urine <=1.005 (1.005-1.025)
[2024-04-14 15:19] LABS: Urine Microscopic Indicated NO
--- NOTE | 2024-04-14 15:40 | US_ITS ---
The [address] [address] Patient Name: WILL ANDERSON MRN: [id number] date: 1985 Sex: M Assigned Patient Location: ED.MAIN Current Patient Location: Accession/Order Number: [id number] Exam Date: 04/14/2024 15:41 Report Date: 04/14/2024 16:21 At the request of: LEO BOSWELL Procedure: US venous doppler LE RT Ultrasound venous duplex scan right lower extremity CLINICAL: Right lower extremity pain for 2 weeks. TECHNIQUE: Roberts-scale, color Doppler and Duplex examination of the right lower extremity was performed with and without provocative maneuvers. FINDINGS: Comparison: 04/01/2024 Sonographic examination of the right lower extremity deep venous system to include the common femoral, superficial femoral and popliteal veins, demonstrates normal compressibility, color-flow, respiratory variation, and augmentation. There is normal color-flow in the proximal profunda femoral vein. There is normal color-flow in the peroneal, posterior tibial, and anterior tibial veins. There is lack of compression involving the greater saphenous vein in the proximal to mid thigh compatible with superficial venous thrombus is unchanged. US/US venous doppler LE RT IMPRESSION: 1. No deep venous thrombosis in the right lower extremity. 2. Chronic superficial venous thrombus in the proximal to mid right greater saphenous vein in the right thigh is unchanged. Electronically authenticated by: QUETA STEIN Date: 04/14/2024 16:21
[2024-04-14] MEDS: IMIPENEM/CILASTATIN SODIUM 1,000 MG in 0.9 % SODIUM CHLORIDE 100 ML 100 MG IV (15:59)
[2024-04-14] MEDS: VANCOMYCIN HCL 1,000 MG in 0.9 % SODIUM CHLORIDE 250 ML 250 MG IV (16:55)
--- NOTE | 2024-04-14 20:51 | PM.HP ---
HPI H&P: HPI History of Present Illness Chief complaint: Swelling Rt Leg, Cellulitis Rt Leg, Hyponatremia Narrative: This is a delayed note for my encounter on 04/14/2024: 38 y o male with hx of alcohol liver cirrhosis, recent hospital admission for right LE cellulitis presented to ER with right lower extremity discoloration, erythema, swelling and tenderness. Patient reports that he finished his oral antibiotics that were previously prescribed upon discharge and he was feeling better until early in the morning, he developed sudden right lower extremity pain/erythema and swelling. It was so severe that his ability to ambulate was affected. He was seen by [facility] and was instructed to go to ER for further evaluation. Workup in ED showed bandemia with bands of 13% along with hyponatremia and he was admitted for cellulitis. Patient was started on IV vancomycin and Levaquin. Ultrasound of his right lower extremity showed chronic superficial vein thrombosis but no acute finding otherwise. Opioid HPI Opioid Management Most Recent Pain and Opioid Data: Last Pain Scale 5 04/15/24 09:33 Last Pain Assessment 04/15/24 10:13 Last MAR Pain Assessment 04/15/24 09:33 Last ORT Total Score 1 04/14/24 18:02 Last ORT Risk Category Low Risk 04/14/24 18:02 Review of Systems ROS Status of ROS 10 or more systems reviewed and unremarkable except as noted in history and below [facility] Medical History (Updated 04/14/24 @ 15:43 by DARCIE Cast) Liver problem ?K76.9 - Liver disease, unspecified (ICD-10) Peripheral vascular disease, unspecified ?I73.9 - Peripheral vascular disease, unspecified (ICD-10) Hyperammonemia ?E72.20 - Disorder of urea cycle metabolism, unspecified (ICD-10) Urinary tract infection ?N39.0 - Urinary tract infection, site not specified (ICD-10) Cellulitis of right leg ?L03.115 - Cellulitis of right lower limb (ICD-10) Hypertension ?I10 - Essential (primary) hypertension (ICD-10) Esophageal varices determined by endoscopy ?I85.00 - Esophageal varices without bleeding (ICD-10) Cellulitis of left leg ?L03.116 - Cellulitis of left lower limb (ICD-10) Fracture, jaw ?S02.609A - Fracture of mandible, unspecified, initial encounter for closed fracture (ICD-10) Immunosuppressed status ?D84.9 - Immunodeficiency, unspecified (ICD-10) Hyperbilirubinemia ?E80.6 - Other disorders of bilirubin metabolism (ICD-10) 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 Smoking status: Former smoker Do you use any of these nicotine containing products: smokeless tobacco Non-prescribed substance use: denies use Previous occupational history: [employer] Highest level of school completed/degree received: high school graduate Are you now , , , , never or living with a partner: never In a typical week, how many times do you talk on the telephone with family, friends, or neighbors: 3 or more times per week How often do you get together with friends or relatives: twice per week How often do you attend nondenominational or latter day services: never Do you belong to any clubs or organizations such as nondenominational groups unions, fraternal or athletic groups, or school groups: no Total score: 1 Score interpretation: A score of less than or equal to 1 indicates the most socially isolated. Little interest or pleasure in doing things: not at all Feeling down, depressed, or hopeless: not at all Feel stressed/tense/nervous/anxious/difficulty sleeping: to some extent Life stressor details: Pain in legs Do you think of yourself as: straight/heterosexual Gender Identity: male Meds Home Medications and Allergies Home Medications ?Medication ?Instructions ?Recorded ?Confirmed ?Type multivitamin with folic acid 400 1 tab PO DAILY 08/12/23 04/14/24 History mcg tablet (Tab-A-Scott) spironolactone 50 mg tablet 50 mg PO DAILY 08/12/23 04/14/24 History furosemide 20 mg tablet 20 mg PO DAILY 04/01/24 04/14/24 History ondansetron 4 mg disintegrating 4 mg PO TID 04/01/24 04/14/24 History tablet cholecalciferol (vitamin D3) 1,250 1,250 mcg PO QWEEK 04/14/24 04/14/24 History mcg (50,000 unit) capsule folic acid 1 mg tablet 1 mg PO DAILY 04/14/24 04/14/24 History lactulose 10 gram/15 mL oral 30 ml PO QID 04/14/24 04/14/24 History solution mycophenolate mofetil 500 mg tablet 500 mg PO BID 04/14/24 04/14/24 History Allergies Allergy/AdvReac Type Severity Reaction Status Date / Time amoxicillin Allergy Severe Unknown Verified 04/14/24 13:16 Penicillins Allergy Severe Unknown Verified 04/14/24 13:16 perflutren [From Definity] Allergy Intermediate Muscle Pain Verified 04/14/24 13:16 Exam Constitutional Vital Signs, click to edit/add: Last Vital Signs Temp 97.4 F L 04/14/24 19:56 Pulse 86 04/14/24 19:56 Resp 18 04/14/24 19:56 BP 89/45 L 04/14/24 19:56 Pulse Ox 97 04/14/24 19:56 O2 Del Method Room Air 04/14/24 19:56 Documenting provider has reviewed patient's vital signs: yes Common normals: no apparent distress and oriented x3 General appearance: cooperative HENSD Common normals: normocephalic and head/scalp atraumatic Head and scalp: normocephalic and atraumatic Respiratory Common normals: normal respiratory effort and clear to auscultation bilaterally Effort & inspection: able to speak in complete sentences Auscultation: clear to auscultation bilaterally Cardio Common normals: regular rate, S1 normal heart sound and S2 normal heart sound Rate: regular rate Heart sounds: S1 normal and S2 normal GI Common normals: Normal to inspection, nondistended, normoactive bowel sounds present, soft to palpation, non-tender and no hepatosplenomegaly Palpation: soft and no hepatosplenomegaly Extremity Other: Right lower extremity-bluish discoloration along with swelling, tenderness. Skin is warm to touch. Appearance is consistent with cellulitis and it extends from his foot all the way up to his knee Neuro Common normals: oriented x3, moves all extremities and no focal motor deficits Psych Common normals: mental status grossly normal, denies hallucinations, denies homicidal ideation and denies suicidal ideation Results Labs Labs: Short CBC 04/14/24 Range/Units 13:56 WBC 8.9 (4.0-11.0) 10^3/uL Hgb 11.8 L (14.0-18.0) g/dL Hct 33.3 L (42.0-54.0) % Plt Count 81 L (150-450) 10^3/uL BMP 04/14/24 13:56 Sodium 125 L Potassium 4.3 Chloride 94 L Carbon Dioxide 24.9 BUN 8.0 Creatinine 0.73 Glucose 101 Calcium 8.4 L Liver Function 04/14/24 Range/Units 13:56 Total Bilirubin 6.4 H (0.2-1.0) mg/dL AST 81 H (15-37) U/L ALT 56 (16-63) U/L Alkaline Phosphatase 235 H (46-116) U/L Albumin 2.7 L (3.4-5.0) g/dL Urine 04/14/24 Range/Units 14:59 Urine Color Lt. yellow (YELLOW) Urine Clarity Clear (CLEAR) Urine pH 7.0 (5.0-9.0) Ur Specific [place] <=1.005 A (1.005-1.025) Urine Protein Negative (NEG/TRACE) mg/dL Urine Glucose (UA) Negative (NEGATIVE) mg/dL ABG ABG results: 04/14/24 13:42 VBG pH 7.478 H VBG pCO2 29.3 L Assessment and Plan Assessment and Plan (1) Cellulitis of right leg: Assessment and Plan: Right lower extremity cellulitis extending from his foot all the way up to his knees. At high risk of resistant organism because of recent use of broad-spectrum antibiotics and history of liver cirrhosis. No acute DVT on her right lower extremity ultrasound. Started patient on IV vancomycin and Levaquin. Follow-up blood cultures. (2) Hyponatremia: Assessment and Plan: Due to hypervolemia and was started on IV Lasix. Improved overnight. Monitor serum sodium closely. (3) Immunosuppressed status: Assessment and Plan: Immunosuppressed because of history of liver cirrhosis. He was previously on mycophenolate but it was discontinued a few months ago according to the patient. 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 Monitor closely. Recent exposure to broad-spectrum antibiotics and is at high risk of resistant organism (4) Warm autoimmune hemolytic anemia: Assessment and Plan: Hemoglobin is stable. Bilirubin is slightly elevated than baseline. Monitor closely. (5) Liver cirrhosis, alcoholic: Assessment and Plan: History of alcoholic liver cirrhosis with evidence of mild volume overload on exam. Started on IV Lasix. Continue lactulose as history of recurrent hepatic encephalopathy. Monitor closely. Qualifiers: Ascites presence: without ascites Qualified Code(s): K70.30 - Alcoholic cirrhosis of liver without ascites (6) Hyperbilirubinemia: Assessment and Plan: Slightly elevated from baseline. Monitor close. (7) Hyperammonemia: Assessment and Plan: Continue with lactulose. Plan Patient admitted as inpatient for right lower extremity cellulitis as he had recent hospital admission for right lower extremity cellulitis and is at high risk of poor prognosis/treatment failure and resistant organisms because of immunosuppressive status along with recent exposure to broad-spectrum antibiotics.
[2024-04-14] MEDS: MAGNESIUM SULFATE IN WATER 2 GM/50 ML PREMIX IV (22:03)
[2024-04-14] MEDS: LACTULOSE 10 GM/15 ML UD CUP 20 GM PO (22:04)
[2024-04-14] MEDS: ENOXAPARIN SODIUM 60 MG/0.6 ML SYRINGE 40 MG SUBQ (22:04)
[2024-04-14] MEDS: ACETAMINOPHEN 325 MG TABLET 650 MG PO (22:04)
[2024-04-14] MEDS: LEVOFLOXACIN IN DEXTROSE 5 % 750 MG/150 ML PREMIX 100 MG IV (22:05)
[2024-04-14] MEDS: OXYCODONE HCL 5 MG TABLET PO (22:07)
[2024-04-14 23:23] LABS: BUN Creatinine Ratio 13.5; Carbon Dioxide 25.3 mmol/L (21.0-32.0); Chloride 99 mmol/L (98-107); Estimated GFR (African America >60 (>=60); Estimated GFR (Non-African Ame >60 (>=60); Glucose 130 mg/dL (74-106); Potassium 4.3 mmol/L (3.5-5.1); Sodium 129 mmol/L (136-145)
[2024-04-15] VITALS (10 sets, daily range): BP systolic 90–122; BP diastolic 51–69; PULSE 73–94; TEMP 36.5–37.6; O2SAT 96–99
[2024-04-15] MEDS: VANCOMYCIN HCL 1,000 MG in 0.9 % SODIUM CHLORIDE 250 ML 250 MG IV (01:26)
[2024-04-15] MEDS: OXYCODONE HCL 5 MG TABLET PO ×4 (01:46→20:58)
[2024-04-15] MEDS: ONDANSETRON PF 4 MG/2 ML VIAL IV (01:46)
[2024-04-15 07:31] LABS: Basophils Absolute Auto 0.1 10^3/uL (0.0-0.1); Basophils Percent Auto 0.5 % (0.2-2.0); Eosinophils Absolute Auto 0.2 10^3/uL (0.0-0.7); Eosinophils Percent Auto 2.1 % (0.9-7.0); Hematocrit 28.4 % (42.0-54.0); Hemoglobin 10.1 g/dL (14.0-18.0); Immature Granulocytes Abs Auto 0.08 10^3/uL (0.00-0.03); Immature Granulocytes Pct Auto 0.8 % (0.0-0.5); Lymphocytes Absolute Auto 0.9 10^3/uL (1.2-3.8); Lymphocytes Percent Auto 8.8 % (20.5-60.0); Mean Corpuscular HGB Conc 35.6 g/dL (29.9-35.2); Mean Platelet Volume 11.2 fL (9.5-13.5); Monocytes Absolute Auto 0.7 10^3/uL (0.3-0.8); Monocytes Percent Auto 6.8 % (1.7-12.0); Neutrophils Absolute Auto 8.3 10^3/uL (1.4-6.5); Platelet Count 64 10^3/uL (150-450); Red Blood Count 2.73 10^6/uL (4.70-6.10); Red Cell Distribution Width 15.5 % (11.0-15.0); White Blood Count 10.3 10^3/uL (4.0-11.0)
[2024-04-15 07:37] LABS: Alanine Aminotransferase 48 U/L (16-63); Albumin Globulin Ratio 0.6; Albumin Level 2.2 g/dL (3.4-5.0); Alkaline Phosphatase 160 U/L (46-116); Anion Gap 10.9; Aspartate Amino Transferase 68 U/L (15-37); BUN Creatinine Ratio 16.1; Bilirubin Total 9.2 mg/dL (0.2-1.0); Carbon Dioxide 23.7 mmol/L (21.0-32.0); Chloride 102 mmol/L (98-107); Estimated GFR (African America >60 (>=60); Estimated GFR (Non-African Ame >60 (>=60); Globulin 3.6 g/dL; Glucose 113 mg/dL (74-106); Potassium 4.6 mmol/L (3.5-5.1); Sodium 132 mmol/L (136-145); Total Protein 5.8 g/dL (6.4-8.2)
--- OUTSIDE RECORDS SUMMARY | 2024-04-15 07:47 | XMS_ITS | CCD ---
Author Organization [facility] Inform ion Partnership [facility] Care Team Providers Care Medication Technician Name Role Phone Link, Colby Nicholson Primary Care Physician Unavailable Primary Care Provider Unavailabl e Unavailable Primary Care Provider Unavailabl e Unavailable Primary Care Provider Unavailabl e Theo Burks MD Primary Care Provider Abbey Alvarez MD Unavailable Gricelda SILVESTRE, Saskia Unavailable [phone] Theo Burks MD Primary Care Provider Abbey Alvarez MD Unavailable Gricelda SILVESTRE, Saskia Unavailable Shamar MULTANI, Marcello Unavailable Gricelda SILVESTRE, Saskia Unavailable THEO BURKS Primary Care Physician Unavaila ble NONE, XXXX Primary Care Physician Unavailab Jarrod Nettles Unavailable Lisa Lopez Primary Care Physician [phone] Josiane Mccullough MD Primary Care Provider Josiane Mccullough MD Unavailable JOSIANE MCCULLOUGH Primary Care Unavailab MARGARET Justice Attending Unavailable PROVIDER, UNKNOWN Attending Unavailable PROVIDER, UNKNOWN Admitting Unavailable THEO BURKS Primary Care Unavailable BLACK, TONJEH Referring Unavailable PROVIDER, UNKNOWN Attending Unavailable PROVIDER, UNKNOWN Admitting Unavailable THEO BURKS Primary Care Unavailable PROVIDER, UNKNOWN Attending Unavailable PROVIDER, UNKNOWN Admitting Unavailable THEO BURKS Primary Care Unavailable BLACK, TONJEH Referring Unavailable Ella Gonzales Attending Unavailable Ella Gonzales Admitting Unavailable Sarmini, Martin Talal Admitting Unavaila ble Sarmini, Martin Talal Referring Unavaila ble Sarmini, Martin Talal Attending UnavailMD Camacho Hinojosa Consulting Unavailable Lisa Lopez Referring Unavailable Lisa Lopez Attending Unavailable Lisa Lopez Admitting Unavailable Camacho TEJEDA Consulting Unavailable Camacho TEJEDA Consulting Unavailable Teddy Hitchcock Attending Unavailable Lisa Lopez Attending Unavailable Lisa Lopez Attending Unavailable Lisa Lopez Attending Unavailable Lisa Lopez Attending Unavailable Sarmini, Martin Talal Admitting Unavaila ble Sarmini, Martin Talal Referring Unavaila ble Sarmini, Martin Talal Attending Unavaila Lisa Pinedo Admitting Unavailable Lisa Lopez Referring Unavailable Lisa Lopez Attending Unavailable Teddy Hitchcock Attending Unavailable Teddy Hitchcock Admitting Unavailable Teddy Hitchcock Referring Unavailable Ella Gonzales Admitting Unavailable Ella Gonzales Attending Unavailable Lisa Lopez Attending Unavailable Lisa Lopez Admitting Unavailable Lisa Lopez Admitting Unavailable Lisa Lopez Attending Unavailable Desi Mena Attending Unavailable Desi Mena Admitting Unavailable Martin Reese Attending Unavailable Lisa Lopez Attending Unavailable Lisa Lopez Attending Unavailable Lisa Lopez Attending Unavailable Lisa Lopez Attending Unavailable Teddy Hitchcock Attending Unavailable MoTeddy abad Attending Unavailable Teddy Hitchcock Attending Unavailable Teddy Hitchcock Attending Unavailable Teddy Hitchcock Attending Unavailable Teddy Hitchcock Attending Unavailable Teddy Hitchcock Attending Unavailable Teddy Hitchcock Attending Unavailable Teddy Hitchcock Attending Unavailable Teddy Luna Attending Unavailable Teddy Hitchcock Attending Unavailable MoTeddy abad Attending Unavailable MoTeddy abad Attending Unavailable MoTeddy abad Attending Unavailable MoTeddy abad Attending Unavailable MoTeddy abad Attending Unavailable Lisa Lopez Admitting Unavailable Keith Patricia Attending Unavailable Mario Evans Attending Unavaila Mario Cline Attending Unavaila Lisa Pinedo Referring Unavailable Axel Lewis Attending Unavailable Lisa Lopez Referring Unavailable Lisa Lopez Attending Unavailable Mario Evans Admitting Unavaila ble Nathan, Mario Xiong Referring Unavaila ble Mario Evans Attending Unavaila Lisa Pinedo Referring Unavailable Dembosdarcy, [facility] Ella Polk Attending U navailable Dembosdarcy, [facility] Ella Polk Admitting U navailable [facility] Attending U navailable Demboske, [facility] Ella Polk Admitting U navailable Demboske, [facility] Ella Polk Attending U navailable Dembosdarcy, [facility] Ella Polk Attending U navailable [facility] Referring U navailable Lisa Lopez Attending Unavailable MD Marc Liz Attending Unavailable Lisa Lopez Referring Unavailable Lisa Lopez Admitting Unavailable Allergies Allergy Classification Reported Allergen(s) Allergy Type Date of Onset Reaction(s) Facility Penicillins (antibiotic) (2 sources) Amoxicillin; Translations: [amoxicillin] Drug Allergy Unknown (qualifier value) [facility] Perflutren (1 source) Perflutren; Translations: [perflutren] Drug Allergy Back Pain [facility] (20 sources) Amoxicillin; Translations: [amoxicillin] Drug Allergy 3 Unknown (qualifier value) [facility] (20 sources) Penicillin; Translations: [penicillin] Drug Allergy unknown [facility] (1 source) Substance with penicillin structure and antibacterial mechanism of action (substance) Drug allergy Unknown [facility] [employer] [facility] [facility] Other (13 sources) Perflutren; Translations: [perflutren] Drug Allergy Back Pain [facility] Medications Current Medications Medication Drug Class(es) Dates Sig (Normalized) Sig (Original) cephalexin 500 mg oral capsule (9 sources) Cephalosporin Antibacterial Start: 09-21-2023 End: 09-26-2023 take 1 capsule by mouth every eight hours Keflex 500 mg Cap 500 mg = 1 cap(s), Oral, q8hr, X 5 day(s), # 15 cap(s), Refills(s) 0, Pharmacy: [facility] #[id number], 170, cm, 09/21/23 14:28:00 EST, Height/Length Dosing, [...] days. 28 Capsule 0 08/15/2022 08/22/2022 Active cholecalciferol 1.25 mg oral capsule (8 sources) Vitamin D Start: 12-23-2023 cholecalciferol 50,000 intl units oral capsule 1,250 mcg = 1 cap(s), Oral, q7day, # 12 cap(s), Refills(s) 1, Pharmacy: [facility] #[id number], 170, cm, 12/23/23 11:10:00 EDT, Height/Length Dosing, 70.3, kg, 12/23/23 11:10:00 EDT, Weight Dosing Start Date: 12/23/23 Status: Ordered CHOLECALCIFEROL, VITAMIN D3, MISC (1 source) Start: 12-23-2023 take 1250 ug by mouth every week CHOLECALCIFEROL, VITAMIN D3, MISC Take 1,250 mcg by mouth one time a week. 0 12/23/2023 Active clindamycin 300 mg oral capsule (20 sources) Lincosamide Antibacterial Start: 02-18-2023 End: 02-25-2023 take 1 capsule by mouth every six hours clindamycin 300 mg oral cap 300 mg = 1 cap(s), Oral, q6hr, X 7 day(s), # 28 cap(s), Refills(s) 0, Pharmacy: [facility] #[id number], 170, cm, 02/18/23 7:51:00 EDT, Height/Length Dosing, 77, kg, 02/18/23 7:51:00 EDT, Weight Dosing Start Date: 02/18/23 Stop Date: 02/25/23 Status: Ordered Start: 02-17-2022 take 2 capsules by m outh four times daily clindamycin 150 mg Cap 300 mg = 2 cap(s), Oral, QID, # 56 cap(s), Refills(s) 0, Pharmacy: [facility] [address], 170.2, cm, 02/17/22 12:34:00 EDT, Height/Length Dosing, [...] 1 mg oral tablet (20 sources) Start: 03-14-2024 take 1 tablet by mouth once daily folic acid 1 mg Tab 1 mg = 1 tab(s), Oral, Daily, # 90 tab(s), Refills(s) 3, Pharmacy: [facility] #[id number], 170, cm, 03/14/24 9:32:00 EDT, Height/Length Dosing, 69.8, kg, 03/14/24 9:32:00 EDT, Weight Dosing Start Date: 03/14/24 Status: Ordered Start: 01-16-2022 End: 07-13-2023 take [...] (20 sources) Loop Diuretic Start: 08-25-2022 End: 02-08-2024 take 1 tablet by mouth once daily furosemide 20 mg Tab 20 mg = 1 tab(s), Oral, Daily, Refills(s) 0, diuretic/water pill Start Date: 07/24/23 Status: Ordered gabapentin 300 mg oral capsule (7 sources) Anti-epileptic Agent Start: 07-24-2023 take 1 capsule by mouth twice daily gabapentin 300 mg Cap 300 mg = 1 cap(s), Oral, BID, # 60 cap(s), Refills(s) 0, Pharmacy: [facility] #[id number], 170, cm, 07/24/23 7:59:00 EST, Height/Length Dosing, [...] oral solution (20 sources) Osmotic Laxative Start: 02-24-2024 take 20 g by mouth four times daily lactulose 10 g/15 mL Oral Syrup 20 gm = 30 mL, Oral, QID, # 3,600 mL, Refills(s) 1, Pharmacy: [facility] #[id number], 170, cm, 01/27/24 9:52:00 EDT, Height/Length Dosing, 74.6, kg, 01/27/24 9:52:00 EDT, Weight Dosing Start Date: 02/24/24 Status: Ordered Start: 10-28-2023 take 20 g by mouth f our times daily lactulose 10 g/15 mL Oral Syrup 20 gm = 30 mL, Oral, QID, # 3,600 mL, Refills(s) 1, Pharmacy: [facility] #[id number], 160, cm, 10/28/23 9:43:00 EST, Height/Length Dosing, 69.1, kg, 10/28/23 9:43:00 EST, Weight Dosing Start Date: 10/28/23 Status: Ordered Start: 07-24-2023 take 20 g by mouth f our times daily lactulose 10 g/15 mL Oral [...] patches if insurance coverage issue, [facility] #[id number], 170, cm, 08/26/23 9:52:00 EST, Height/Length Dosing, 68.5, kg, 08/26/23 9:52:00 EST, Weight Dosing Start Date: 08/26/23 Status: Ordered Start: 08-26-2023 apply 28.5 g topical ly twice daily lidocaine 3% topical gel See Instructions, 28.5 gm, Refill(s) 0, Topical BID apply a thin film to the affected areas may substitute for 2 % if this is not available, [facility] #[id number], 170, cm, 08/26/23 9:52:00 EST, Height/Length Dosing, [...] 07-24-2023 Misc DME Presc ription See Instructions, [place] SAP Dressing 4 x 4 dressing Start Date: 07/24/23 Status: Ordered Start: 07-24-2023 Misc DME Presc ription See Instructions, Muscle & joint balm CBD 880mg Start Date: 07/24/23 Status: Ordered Misc Prescription (7 sources) Start: 07-24-2023 Misc Prescription Bee Venom, Daily Start Date: 07/24/23 Status: Ordered Multiple Vitamin (Tab-A-Scott) TABS (8 sources) Start: 07-13-2023 take 1 tablet by [...] thin layer to affected area. 30 g 08/25/2022 Active mycophenolate mofetil 500 mg oral tablet (20 sources) Start: 12-07-2023 take 1 tablet by mouth every twelve hours mycophenolate Mofetil (CELLCEPT) 500 mg tablet Take 1 tablet by mouth every 12 hours. 0 12/07/2023 Active Start: 03-13-2022 End: 07-21-2023 take 1 tablet [...] Tablet 3 02/11/2022 03/13/2022 Discontinued (Dose adjustment) naloxone hydrochloride 40 mg/ml nasal spray (15 sources) Opioid Antagonist Start: 10-28-2023 naloxone 4 m g/actuation nasal spray (NARCAN) 1 Edgar by nasal (alternating) route. 0 10/28/2023 Active Start: 10-28-2023 Narcan 4 mg/0. 1 mL nasal spray 4 mg, Nasal, As Directed, for suspected overdose symptoms, # 1 kit(s), Refills(s) 0, Pharmacy: [facility] #[id number], 160, cm, 10/28/23 9:43:00 EST, Height/Length Dosing, 69.1, kg, 10/28/23 9:43:00 EST, Weight Dosing Start Date: 10/28/23 Status: Ordered ondansetron 4 mg oral tablet (20 sources) Serotonin-3 Receptor Antagonist Start: 12-23-2023 take 1 tablet by mouth three times daily as needed for nausea Zofran ODT 4 mg Tab 4 mg = 1 tab(s), Oral, TID, PRN Nausea, # 60 tab(s), Refills(s) 0, Pharmacy: [facility] #[id number], 170, cm, 12/23/23 11:10:00 EDT, Height/Length Dosing, 70.3, kg, 12/23/23 11:10:00 EDT, Weight Dosing Start Date: 12/23/23 Status: Ordered Start: 10-28-2023 take 1 tablet by patricia th three times daily as needed for nausea Zofran ODT 4 mg Tab 4 mg = 1 tab(s), Oral, TID, PRN Nausea, # 60 tab(s), Refills(s) 0, Pharmacy: [facility] #[id number], 160, cm, 10/28/23 9:43:00 EST, Height/Length Dosing, 69.1, kg, 10/28/23 9:43:00 EST, Weight Dosing Start Date: 10/28/23 Status: Ordered Start: 02-12-2023 End: 07-13-2023 take 1 tablet by mouth every twelve hours as needed for nausea ondansetron (ZOFRAN-ODT) 4 MG disintegrating tablet Indications: Nausea Take 1 Tablet by mouth every 12 hours as needed for Nausea. Place 1 tablet under tongue as needed for nausea. 30 Tablet 07/14/2023 Active Start: 03-13-2022 End: 10-27-2022 take [...] Vomiting, Nausea oxyCODONE hydrochloride 5 mg oral tablet (16 sources) Opioid Agonist Start: 01-27-2024 take 0.5 tablet by mouth every six hours as needed for pain oxyCODONE 5 mg Tab 0.5 tab, Oral, q6hr, PRN for pain, for leg pain- severe pain only, # 28 tab(s), Refills(s) 0, Pharmacy: [facility] #[id number], 170, cm, 01/27/24 9:52:00 EDT, Height/Length Dosing, 74.6, kg, 01/27/24 9:52:00 EDT, Weight Dosing Start Date: 01/27/24 Status: Ordered Start: 10-28-2023 take 0.5 tablet by m outh every six hours as needed for pain oxyCODONE 5 mg Tab 0.5 tab, Oral, q6hr, PRN for pain, for leg pain, # 28 tab(s), Refills(s) 0, Pharmacy: [facility] #[id number], 160, cm, 10/28/23 9:43:00 EST, Height/Length Dosing, 69.1, kg, 10/28/23 9:43:00 EST, Weight Dosing Start Date: 10/28/23 Status: Ordered Start: 02-18-2023 End: 02-21-2023 take 1 capsule by mouth every six hours as needed oxyCODONE ir (OXYIR) 5 mg capsule Take 5 mg by mouth every 6 hours as needed. 0 02/18/2023 Active spironolactone 50 mg oral tablet (20 sources) Aldosterone Antagonist Start: 01-20-2024 take 1 tablet by mouth once daily spironolactone 50 mg Tab 50 mg = 1 tab(s), Oral, Daily, # 90 tab(s), Refills(s) 3, Pharmacy: [facility] #[id number], 170, cm, 12/23/23 11:10:00 EDT, Height/Length Dosing, 70.3, kg, 12/23/23 11:10:00 EDT, Weight Dosing Start Date: 01/20/24 Status: Ordered Start: 08-25-2022 End: 03-16-2023 take [...] take 1 tablet by patricia th once sulfamethoxazole-trimethoprim (BACTRIM D S) 800-160 mg per tablet Take 1 tablet by mouth. 0 07/23/2023 Active Start: 07-23-2023 take 1 tablet [...] day(s), 28 tab(s), Refill(s) 0, [facility] #[id number], 170, cm, 03/22/23 20:14:00 EDT, Height/Length Dosing, [...] Discontinued (Reorder (*won't e-cancel)) Tab-A-Scott oral tablet (20 sources) Start: 07-24-2023 take 1 tablet by mouth once daily Tab-A-Sctot oral tablet 1 tab(s), Oral, Daily, Refill(s) [...] dose on Thu01/08/22 at 1430, Until Discontinued ursodiol 300 mg oral capsule (3 sources) Bile Acid Start: 12-23-2023 take 1 capsule by mouth every twelve hours ursodiol (ACTIGALL) 300 mg capsule Take 1 capsule by mouth every 12 hours. 0 12/23/2023 Active Start: 12-23-2023 take 1 capsule by mo uth twice daily ursodiol 300 mg Cap 300 mg = 1 cap(s), Oral, BID, # 60 cap(s), Refills(s) 1, Pharmacy: [facility] #[id number], 170, cm, 12/23/23 11:10:00 EDT, Height/Length Dosing, 70.3, kg, 12/23/23 11:10:00 EDT, Weight Dosing Start Date: 12/23/23 Status: Ordered Zofran ODT 4 mg Tab-Dis (20 sources) Start: 09-30-2023 take 1 tablet by mouth every eight hours as needed for nausea Zofran ODT 4 mg Tab-Dis 4 mg = 1 tab(s), Oral, q8hr, PRN Nausea/Vomiting, # 60 tab(s), Refills(s) 12, Pharmacy: [facility] #[id number], 170, cm, 09/30/23 9:19:00 EST, Height/Length Dosing, 69, kg, 09/30/23 9:19:00 EST, Weight Dosing Start Date: 09/30/23 Status: Ordered Start: 03-22-2023 take 1 tablet by patricia th every eight hours as needed for nausea Zofran ODT 4 mg Tab-Dis 4 mg = 1 tab(s), Oral, q8hr, PRN Nausea/Vomiting, # 20 tab(s), Refills(s) 0, Pharmacy: [facility] #[id number], 170, cm, 03/22/23 20:14:00 EDT, Height/Length Dosing, [...] mg, Oral, DAILY, Fir st dose on Rachel 01/09/22 at 1900, Until Discontinued Start: 01-08-2022 End: 01-10-2022 10 mg, Intravenous, DAILY, 3 doses, First dose on Thu01/08/22 at 1530, Last dose on Thu01/10/22 at 0900 Completed/Discontinued Medications Medication Drug Class(es) Dates Sig (Normalized) Sig (Original) acetaminophen 32 mg/ml oral solution (1 source) Start: 01-10-2022 500 mg, Oral, EVERY 6 HOURS PRN, Starting on Thu01/10/22 at 2023, Until Discontinued, Mild Pain (pain score 1,2,3), [...] Tablet 0 08/16/2022 08/25/2022 Discontinued (Therapy completed) BP cuff device and appropriate size please (14 sources) Start: 10-28-2023 BP cuff device and appropriate size please BP cuff device and appropriate size please, See Instructions, 1 EA, 0, BP Device/ machine and cuff (size appropriate), Supply Start Date: 10/28/23 Status: Ordered calcium chloride 0.0014 meq/ml / potassium chloride [...] 05/06/2022 Discontinued (Therapy completed) 168 hr cloNIDine 0.55389 mg/hr transdermal system (1 source) Central alpha-2 [...] Meal Tray Tube feeding formula: Peptamen 1.5 2 ml fentaNYL 0.05 mg/ml injection (1 source) Opioid Agonist Start: 01-20-2023 End: 01-20-2023 fentaNYL (SUBLIMAZE) 100 MCG/2ML injection 1 ml haloperidol 5 mg/ml injection (1 source) Typical Antipsychotic Start: 01-08-2022 End: 01-08-2022 inject 1 dose by intramuscular injection once 5 mg, Intramuscular, ONCE, 1 dose, On Thu01/08/22 at 2230 1 ml HYDROmorphone hydrochloride 2 mg/ml cartridge (2 sources) Opioid Agonist Start: 01-20-2023 End: 01-20-2023 HYDROmorphone (DILAUDID) 2 MG/ML injection ibuprofen 800 mg oral tablet (1 source) [...] modification) on Thu01/13/22 at 2200, Until Discontinued iohexol (OMNIPAQUE) 350 MG/ML injection (1 source) Start: 01-20-2023 End: 01-20-2023 iohexol (OMNIPAQUE) 350 MG/ML injection LORazepam 0.5 mg oral tablet (6 sources) [...] 01-09-2022 2 mg, Oral, EVERY 2 HOURS OK N, Starting on Thu01/08/22 at 1755, Until [...] 03-15-2008 End: 01-17-2022 Start: 03-15-2008 End: 01-17-2022 midazolam 1 mg/ml injectable solution (3 sources) Benzodiazepine Start: 01-20-2023 End: 01-20-2023 midazolam (VERSED) 2 MG/2ML injection 1 ml morphine sulfate 4 mg/ml cartridge [...] tablet by mouth twice daily Potassium Chloride (Krh-Oush-Blb M20) 20 mEq oral tablet, extended release 20 mEq = 1 tab(s), Oral, BID, # 30 tab(s), Refills(s) 3, Pharmacy: [facility] #[id number], 170, cm, 07/24/23 7:59:00 EST, Height/Length Dosing, 73.5, kg, 07/24/23 7:59:00 EST, Weight Dosing Start Date: 07/24/23 Status: Ordered Start: 11-14-2022 take 1 tablet by patricia th once daily potassium chloride SA (K-DUR) 20 MEQ controlled release tablet Indications: Hypokalemia Take 1 Tablet by mouth daily. 10 Tablet 11/14/2022 Active Start: 01-15-2022 End: 01-15-2022 take [...] Active Problems Problem Classification Problem Date Documented Da te Episodic/Chronic Abdominal pain (11 sources) Left lower quadrant pain; Translations: [Left lower quadrant pain] Onset: 4 Episodic Administrative/social admission (1 source) Counseling procedure with explicit context; Translations: [Dietary counseling and surveillance] Episodic Alcohol-related disorders (20 sources) Alcohol abuse; Translations: [Alcohol abuse, uncomplicated] Onset: 2 Resolved: 3 Chronic Bacterial infection; unspecified site (1 source) Bacterial infection due to Klebsiella pneumoniae; Translations: [Other bacterial infections of unspecified site] Episodic Biliary tract disease (11 sources) Cholelithiasis without obstruction; Translations: [Calculus of gallbladder without cholecystitis without obstruction] Onset: 4 Episodic Chronic ulcer of skin (4 sources) 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; Translations: [Chronic ulcer of skin of lower leg] Onset: 3 Chronic Coagulation and hemorrhagic disorders (20 sources) Thrombocytopenic disorder; Translations: [Thrombocytopenia, unspecified] Onset: 2 Chronic Deficiency and other anemia (20 sources) Warm autoimmune hemolytic anemia; 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 Deficiency and other anemia (20 sources) Hemolytic anemia; Translations: [Hereditary hemolytic anemia, unspecified] Onset: 2 Chronic Deficiency and other anemia (1 source) Hereditary hemolytic anemia; Translations: [Hereditary hemolytic anemia, unspecified] Onset: 3 Chronic Deficiency and other anemia (1 source) Pancytopenia; Translations: [Other pancytopenia] Onset: 4 Chronic Deficiency and other anemia (20 sources) Anemia; Translations: [Anemia, unspecified] Onset: 2 Episodic Deficiency and other anemia (15 sources) Iron deficiency anemia; Translations: [Iron deficiency anemia, unspecified] Onset: 4 Episodic Deficiency and other anemia (12 sources) Megaloblastic anemia; 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, not elsewhere classified] Onset: 4 12-11-2023 Episodic Deficiency and other anemia (1 source) Deficiency and other anemia; 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] Onset: 2 Diabetes mellitus without complication (20 sources) Impaired fasting glycemia; Translations: [Impaired fasting glucose] Onset: 3 Episodic E Codes: Adverse effects of medical drugs (2 sources) Adverse reaction to biological substance; Translations: [Adverse effect of unspecified drugs, medicaments and biological substances, initial encounter] Onset: 4 Episodic E Codes: Natural/environment (1 source) Bite of nonvenomous arthropod; Translations: [Bitten or stung by nonvenomous insect and other nonvenomous arthropods, initial encounter] Onset: 3 Episodic Esophageal disorders (18 sources) Esophageal varices without bleeding; Translations: [Esophageal varices without bleeding] Onset: 4 Chronic Essential hypertension (16 sources) Essential hypertension; Translations: [Essential (primary) hypertension] Onset: 4 Chronic Fluid and electrolyte disorders (20 sources) Acidosis; Translations: [Acidosis] Onset: 2 Episodic Genitourinary symptoms and ill-defined conditions (11 sources) Dysuria; Translations: [Dysuria] Episodic Headache; including migraine (14 sources) Headache 10-07-2023 Episodic Immunizations and screening for infectious disease (2 sources) Patient encounter status; Translations: [Encounter for laboratory testing for severe acute respiratory syndrome coronavirus 2 (SARS-CoV-2)] Episodic Inflammatory conditions of male genital organs (1 source) Inflammation of scrotum; Translations: [Inflammatory disorders of scrotum] Onset: 2 Episodic Multiple myeloma (1 source) Multiple myeloma; Translations: [Multiple myeloma not having achieved remission] 04-21-2023 Chronic Nausea and vomiting (20 sources) Nausea and vomiting; Translations: [Nausea with vomiting, unspecified] Onset: 3 Episodic Nonspecific chest pain (1 source) Precordial pain; Translations: [Precordial pain] Onset: 4 Episodic Nutritional deficiencies (20 sources) Vitamin D deficiency; Translations: [Vitamin D deficiency, unspecified] Onset: 2 08-25-2022 Chronic Open wounds of extremities (1 source) Unspecified open wound, right lower leg, initial encounter Episodic Other aftercare (4 sources) Antibiotic prophylaxis indicated; Translations: [detention (current) use of antibiotics] Episodic Other aftercare (5 sources) Drug therapy status; Translations: [Other intermediate (current) drug therapy] Episodic Other aftercare (1 source) Long-term current use of drug therapy; Translations: [Other assistant terminal manager (current) drug therapy] Onset: 3 Episodic Other circulatory disease (1 source) Elevated blood-pressure reading without diagnosis of hypertension; Translations: [Elevated blood-pressure reading, without diagnosis of hypertension] Onset: 3 Episodic Other circulatory disease (20 sources) Elevated blood pressure 07-24-2023 Episodic Other [...] limb; Translations: [Pain in right leg] Onset: 3 Episodic Other endocrine disorders (1 source) Hypoglycemia; Translations: [Hypoglycemia, unspecified] Chronic Other gastrointestinal disorders (9 sources) Diarrhea 12-16-2023 Episodic Other hematologic conditions (20 sources) Macrocytosis; Translations: [Other specified diseases of blood and blood-forming organs] Onset: 2 02-12-2022 Chronic Other hematologic conditions (3 sources) Abnormal presence of albumin; Translations: [Abnormality of albumin] Onset: 3 Episodic Other injuries and conditions due to external causes (1 source) Traumatic AND/OR non-traumatic injury; Translations: [Other injury of unspecified body region, initial encounter] Onset: 2 Episodic Other liver diseases (14 sources) Cirrhosis of liver; Translations: [Unspecified cirrhosis of liver] Onset: 2 Chronic Other liver diseases (1 source) Hepatic fibrosis; Translations: [Liver fibrosis] Chronic Other liver diseases (16 sources) Portal hypertension; Translations: [Portal hypertension] Onset: 4 Chronic Other liver diseases (1 source) Hepatic failure; Translations: [Acute and subacute hepatic failure without coma] Onset: 2 Episodic Other liver diseases (18 sources) Elevated liver enzymes level; Translations: [Abnormal levels of other serum enzymes] Onset: 2 Episodic Other liver diseases (3 sources) Enzyme level - finding; Translations: [Abnormal levels of other serum enzymes] Onset: 3 Episodic Other lower respiratory disease (3 sources) Rib pain; Translations: [Pleurodynia] Episodic Other non-traumatic joint disorders (1 source) Swelling of bilateral feet; Translations: [Effusion, right ankle] Episodic Other nutritional; endocrine; and metabolic disorders (20 sources) Hyperbilirubinemia; Translations: [Other disorders of bilirubin metabolism] Onset: 3 Chronic Other nutritional; endocrine; and metabolic disorders (1 source) Iron overload; Translations: [Other disorders of iron metabolism] Chronic Other nutritional; endocrine; and metabolic disorders (1 source) Disorder of iron metabolism; Translations: [Other disorders of iron metabolism] Onset: 4 Chronic Other nutritional; endocrine; and metabolic disorders (14 sources) Overweight in adulthood with body mass index of 25 or more but less than 30; Translations: [Body mass index (BMI) 27.0-27.9, adult] Onset: 3 Episodic Other nutritional; endocrine; and metabolic disorders (3 sources) Overweight; Translations: [Overweight] Onset: 4 Episodic Other screening for suspected conditions (not mental disorders or infectious disease) (20 sources) No current problems or disability; Translations: [Coag./bleeding tests abnormal] Onset: 3 02-23-2014 Episodic Pancreatic disorders (not diabetes) (1 source) Acute pancreatitis; Translations: [Acute pancreatitis without necrosis or infection, unspecified] Onset: 2 Episodic Poisoning by other medications and drugs (8 sources) Adverse reaction to drug 12-23-2023 Episodic Residual codes; unclassified (2 sources) Localized edema; Translations: [Localized edema] Onset: 2 Episodic Residual codes; unclassified (2 sources) Edema of lower extremity; Translations: [Localized edema] Episodic Residual codes; unclassified (14 sources) Tobacco user; Translations: [Tobacco use] Onset: 3 Episodic Residual codes; unclassified (6 sources) Current drinker; Translations: [Alcohol use, unspecified, in remission] Onset: 3 Episodic Residual codes; unclassified (20 sources) User of smokeless tobacco 07-24-2023 Episodic Residual codes; unclassified (2 sources) Body mass index 20-24 - normal; Translations: [Body mass index (BMI) 23.0-23.9, adult] Onset: 3 Episodic Residual codes; unclassified (2 sources) Edema; Translations: [Edema, unspecified] Onset: 4 Episodic Residual codes; unclassified (15 sources) Dependent edema 10-01-2023 Episodic Residual codes; unclassified (6 sources) Pain; Translations: [Pain, unspecified] Onset: 4 12-11-2023 Episodic Skin and subcutaneous tissue infections (20 sources) Cellulitis of right lower limb; Translations: [Cellulitis of right lower limb] Onset: 3 Episodic Spondylosis; intervertebral disc disorders; other back problems (12 sources) Backache; Translations: [Dorsalgia, unspecified] Onset: 3 Episodic Sprains and strains (1 source) Injury of shoulder and upper arm; Translations: [Strain of muscle, fascia and tendon of other parts of biceps, left arm, initial encounter] Episodic Superficial injury; contusion (1 source) Insect bite, nonvenomous, of thigh; Translations: [Insect bite (nonvenomous), right thigh, initial encounter] Onset: 3 Episodic Unclassified (8 sources) Patient encounter status 07-24-2023 Unclassified (7 sources) Serum albumin below reference range 07-24-2023 Unclassified (5 sources) Body mass index 20-24 - normal 08-26-2023 Unclassified (19 sources) Venous ulcer of lower limb 08-26-2023 Urinary tract infections (4 sources) Urinary tract infectious disease; Translations: [Urinary tract infection, site not specified] Episodic Varicose veins of lower extremity (20 sources) Varicose veins of right lower limb; Translations: [Varicose veins of right lower extremity with ulcer of unspecified site] Onset: Episodic Past or Other Problems Problem Classification Problem Date Documented Date Episodic/Chronic Other aftercare (1 source) Other intermediate (current) drug therapy; Translations: [Other intermediate (current) drug therapy] Onset: 10-01-2023 Episodic Other aftercare (1 source) manager intermediate (current) use of antibiotics; Translations: [manager intermediate (current) use of antibiotics] Onset: 10-01-2023 Episodic Other fractures (20 sources) Compression fracture of lumbar spine; Translations: [Wedge compression fracture of unspecified lumbar vertebra, initial encounter for closed fracture] Onset: 08-24-2013 08-25-2022 Episodic Other fractures (2 sources) Fracture of transverse process of lumbar vertebra; Translations: [Unspecified fracture of unspecified lumbar vertebra, initial encounter for closed fracture] Onset: 08-01-2013 08-01-2013 Episodic Other injuries and conditions due to external causes (20 sources) Hematoma; Translations: [Other injury of unspecified body region, initial encounter] Onset: 01-08-2022 Episodic Other liver diseases (20 sources) Jaundice; Translations: [Unspecified jaundice] Onset: 01-07-2022 Resolved: 08-25-2022 Episodic Residual codes; unclassified (20 sources) 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; Translations: [Genetic susceptibility to other disease] Onset: 10-29-2011 08-25-2022 Episodic Rheumatoid arthritis and related disease (1 source) Ankylosing spondylitis; Translations: [Ankylosing spondylitis of unspecified sites in spine] Onset: 07-06-2003 Resolved: 10-29-2011 10-29-2011 Chronic Skull and face fractures (20 sources) Open fracture of mandible, angle of jaw; Translations: [Fracture of angle of mandible, unspecified side, initial encounter for open fracture] Onset: 03-15-2008 03-15-2008 Episodic Results Test Name Value Interpretation Reference Range Facil [facility] 04-05-20 Population [facility] Population Health Case Information Case Priority: None Programs: -- Referral Source: [employer] Supervisor Referral Reason: Care coordination Case Type: Transition Care Management Risk Score: -- Case Status: Enrolled (April 05, 2024) Date Assigned: April 05, 2024 Assigned By: Nasrin Greene RN Date Enrolled: April 05, 2024 Assigned Primary Personnel: Nasrin Greene RN Assigned Secondary Personnel: Shannon Benites RN Case Physician: Lisa Padilla Problems Ongoing Abnormal stress test Alcohol use disorder in remission Anemia Cholelithiases Cirrhosis Dependent edema Diarrhea Elevated blood pressure reading Elevated fasting glucose Elevated INR Epigastric pain Esophageal varices Headache HTN (hypertension) Hypokalemia Iron deficiency anemia Liver cirrhosis, alcoholic Megaloblastic anemia Nausea Portal venous hypertension Severe back pain Smokeless tobacco use Thrombocytopenia Tobacco user Varicose veins of legs Venous ulcer of right leg Vitamin D deficiency Historical Abscess of left leg excluding foot Adverse reaction to drug Cellulitis of leg, right Denies Dysuria Heavy alcohol use Procedure/Surgical History EGD - esophagogastroduodeno scopy (11/11/2023), Esophagogastroduodeno scopy (09/30/2023), I and D, Jaw. Home Medications BP cuff device and appropriate size please, See Instructions cholecalciferol 50,000 intl units oral capsule, 1250 mcg= 1 cap(s), Oral, q7day, 1 refills folic acid 1 mg Tab, 1 mg= 1 tab(s), Oral, Daily, 3 refills furosemide 20 mg Tab, 20 mg= 1 tab(s), Oral, Daily lactulose 10 g/15 mL Oral Syrup, 20 gm= 30 mL, Oral, QID, 1 refills [facility] Prescription, See Instructions [facility] Prescription, See Instructions [facility] Prescription, See Instructions Narcan 4 mg/0.1 mL nasal spray, 4 mg, Nasal, As Directed oxyCODONE 5 mg Tab, 0.5 tab, Oral, q6hr, PRN Potassium Chloride (Abd-Mtet-Gxm M20) 20 mEq oral tablet, extended release, 20 mEq= 1 tab(s), Oral, BID, 3 refills spironolactone 50 mg Tab, 50 mg= 1 tab(s), Oral, Daily, 3 refills Tab-A-Scott oral tablet, 1 tab(s), Oral, Daily Zofran ODT 4 mg Tab, 4 mg= 1 tab(s), Oral, TID, PRN Allergies Definity (Back Pain) amoxicillin (Unknown) penicillin (unknown) Social History Alcohol - Denies Alcohol Use, 12/23/2023 Past, Beer, 3-5 times per week, 12/23/2023 Past, 09/01/2023 Current, Beer, Daily, 09/01/2023 Current, 3-5 times per week, 08/09/2020 Substance Abuse Tobacco Former smoker, quit more than 30 days ago Tobacco Use:. Smokeless tobacco user within last 30 days Smokeless Tobacco Use:. Oral, Ready to change: No. Household tobacco concerns: No. Yes, 03/17/2024 Family History Diabetes mellitus type 2: Father. Screenings and Assessments 04/05/24 09:35:00 Result Name Value Comment Phone Call Monitoring Consent Agreed to continue call Phone Verification Patient Information Full name, street address and date of verified CM Program Enrollment Provides verbal consent for enrollment Goals and Interventions Care Plan Progress Note Admit Date: ? Date of Discharge: 04/03/2024 Follow-up appointment scheduled? Yes. Vivi Lopez on 04/15/2024 at 09:20 AM Did you understand your discharge instructions? Yes Are you able to follow them? Yes Did you receive new medications? Yes. No discharge paperwork provided to CN at this time Have you filled the Rx's? Yes Are you taking them as prescribed? Yes Are you having difficulty eating or swallowing your pills? No Are you having any stomach upset, diarrhea or constipation? No How are you sleeping? Fine Are you having any pain? Yes. RLE pain Do you have everything you need at home to care for yourself? Yes Do you have Home Health? No Called for initial call for the Transitional Care Management Program. Reviewed discharge diagnosis of UTI and cellulitis with patient. Medications will be reconciled at office visit. No discharge paperwork provided to CN at this time. Patient states he is doing okay. RLE pain, swelling and redness continues. No drainage noted. Patient is ambulating well. No falls reported. No signs of UTI reported. Patient remains a-febrile. Patient was sent home with a course of antibiotic treatment. Patient taking medication as prescribed. Decrease in appetite noted. Patient is drinking plenty of fluids. No complaints with bowels. No changes in sleeping pattern noted. Reviewed the following appointment with patient: with Vivi Lopez on 04/15/2024 at 09:20 AM. Patient denies any questions or concerns at this time. Explained TCM program and provided patient with CN contact number. Communication Events Date: April 05, 2024 Method: Phone call Type: Outbound Duration (min): 7 Outcome: Case discussion Contact Type: Patient Contact Name: WILL RALPH Notes: TCM #1-see summary note. Created By: Jc GREER, Nasrin Zuniga [facility] Heart and Vascular Office/ inic Noteon 03-17-2024 Heart and Vascular Office/Clinic Note Heart and Vascular Office/Clinic Note Chief Complaint New Patient- Abnormal stress echo History of Present Illness The patient is a 38-year-old male with past medical history of hypertension, alcohol abuse, liver cirrhosis, megaloblastic anemia, thrombocytopenia, varicose veins, who presents for a cardiac evaluation due to nonconclusive stress echocardiogram in December of this year, during the study the patient had what seems to be adverse reaction to Definity therefore the stress test was aborted and the patient was sent to the emergency room. Originally, the stress test was ordered in a context of chest discomfort and shortness of breath. Most recent ECG from October 2023 demonstrated sinus rhythm with evidence of inferior and lateral Q waves. His prior cardiac workup also included a transthoracic echocardiogram, which showed no evidence of significant structural heart disease. He describes the chest pains as feelings of discomfort in the left and right sides of his chest, lasting 24/7 for the past 6 months. It is nonexertional. Reports mild chronic shortness of breath. Review of Systems PHQ Score Initial Depression Screen Score: 0 SCORE ROS - Provider Constitutional: no fever, no chills, no fatigue Skin:no rash, no lesions ENMT: no ear pain, no sore throat, no congestion. Respiratory: no shortness of breath, no cough, no wheezing. Cardiovascular: no chest pain, no palpitations, no edema. Gastrointestinal: yes nausea, no vomiting, no diarrhea, no GI bleeding. Genitourinary: no dysuria, no frequencyno hematuria Musculoskeletal: no back pain, no trauma. Neurologic: no headache, no dizziness, no numbness, no weakness. Psychiatric: no sleeping problems, no irritability, no mood swings/depression. Heme/Lymph: no bleeding tendency, no bruising tendency, no petechiae, Allergy/Immuno logic: no seasonal allergies, no food allergies, no recurrent infections Physical Exam Vitals & Measurements HR: 66(Peripheral) RR: 16 BP: 140/82 SpO2: 99% HT: 67 in HT: 170 cm WT: 70.6 kg WT: 155.32 lb BMI: 24.43 General: alert, no acute distress Neck: Supple, noJVD nocarotid bruit Cardiovascular: regular rate and rhythm, no murmur normal peripheral perfusion Respiratory: Lungs CTAB, respirations non labored Extremities: no edema left lower extremity. no edema right lower extremity Neurological: oriented x 4, LOC appropriate for age, speech normal Skin: Warm, dry, intact- no rash or concerning lesions Procedure (12/11/2023 09:28 EDT EC Stress Echo Complete w/ Contrast) Exercise Stress Echocardiogram Report Name: WILL RALPH Study Date: 12/11/2023 08:41 AM BP: 148/85 mmHg Patient Location: [facility] : 1985 Gender: Male Height: 67 in Age: 38 yrs Ethnicity: T Weight: 150 lb Reason For Study: Chest pain BSA: 1.8 m2 History: HTN,Murmur,Alcohol use Ordering Physician: John^Lisa^Nadia Referring Physician: Lisa Lopez Performed By: Chloe Angel [facility] Interpretation Summary Stress echo test aborted after patient received single dose of IV Definity and developed severe bilateral flank pain requiring IV hydration and IV fentanyl. Patient transferred to the emergency room for further evaluation and care. Patient is to never receive Definity in the future. No other complications. Alternative testing will be required to further evaluate patient's cardiac ischemia. Procedure A two-dimensional stress echocardiogram was performed. A Treadmill stress test was performed. [1] (12/11/2023 09:22 EDT Echo Transthoracic Complete) Adult Echocardiogram Report Name: WILL RALPH Study Date: 12/11/2023 08:15 AM BP: 148/85 mmHg Patient Location: [facility] HR: 65 : 1985 Gender: Male Height: 67 in Age: 38 yrs Ethnicity: WHT Weight: 150 lb Reason For Study: Chest pain BSA: 1.8 m2 History: HTN,Alcohol use Ordering Physician: John^Lisa^Nadia Referring Physician: Lisa Lopez Performed By: Chloe Angel [facility] Interpretation Summary No comparison study is available. Ejection Fraction = 60-65%. The left ventricular wall motion is normal. Normal diastolic function. Right ventricular systolic pressure is 29 mmHg. [2] ECG, which was performed today in the office showed normal sinus rhythm at 61 bpm, no acute ST/T wave deviations, consistent with ischemia. No abnormal Q waves. Assessment/Plan 1. Precordial pain (R07.2: Precordial pain) Clearly musculoskeletal. I do not think that the patient needs any cardiac investigations. 2. Abnormal stress test (R94.39: Abnormal result of other cardiovascular function study) Orders: ECG 12 Lead Adult Follow-up No qualifying data available As needed Problem List/Past Medical History Ongoing Abnormal stress test Alcohol use disorder in on license of [facility] (more content not included)... Normal [facility] Comment on above: Result Comment: Elec tronically Signed By: Shalonda MULTANI, Marc Love\.br\Date and Time Signed: 03/17/24 14:46 EDT Lab Miscellaneous-LCon 03-09 Lab Miscellaneous COMMENT Invalid Interpretation Code [facility] Comment on above: Result Comment: Test Ordered: [id number] Hered.Hemochromatosis, DNA Hereditary Hemochromatosis Comment TG Results: c.845G>A (p.Gee796Fzp) - Not Detected c.187C>G (p.Erw60Vnq) - Not Detected c.193A>T (p.Gxn08Nfs) - Detected, heterozygous Not associated with increased risk to develop clinical symptoms of Hereditary Hemochromatosis. In symptomatic individuals, other causes of iron overload should be evaluated. See Additional Information and Comments. Additional Clinical Information: Hereditary hemochromatosis (HFE related) is an autosomal recessive iron storage disorder. Patients may have a genetic diagnosis of hereditary hemochromatosis and never show clinical symptoms. Clinical symptoms typically appear between 40 to 60 years in males and after menopause in females. Signs and symptoms may include organ damage, primarily in the liver, risk for hepatocellular carcinoma, diabetes, and heart disease due to iron accumulation. Life expectancy may be decreased in individuals who develop cirrhosis. Treatment for clinically symptomatic individuals may include therapeutic phlebotomy. Liver transplant may be used to treat end stage liver failure. For preventive care, monitoring for iron overload is recommended for patients who are homozygous for c.845G>A (p.Ail739Tyx) and have yet to experience clinical symptoms. Comments: The most common HFE variants associated with hereditary hemochromatosis are c.845G>A (p.Dkr673Plu), c.187C>G (p.Hwv16Iya), c.193A>T (p.Exf74Cxi). While patients homozygous for c.845G>A (p.Oph669Bna) are the most likely to present clinical symptoms, less than 10% develop clinically significant iron overload with tissue and organ damage. Genetic counseling is recommended to discuss the potential clinical implications of positive results, as well as recommendations for testing family members. Genetic Coordinators are available for health care providers to discuss results at [phone]). Test Details: Three variants analyzed: c.845G>A (p.Aex884Jof), commonly referred to as C282Y c.187C>G (p.Pbb51Zug), commonly referred to as H63D c.193A>T (p.Tnb84Vqm), commonly referred to as S65C Methods/Limitations: DNA Analysis of the HFE gene ([id number]) was performed by PCR amplification followed by restriction enzyme digestion analyses. Results must be combined with clinical information for the most accurate interpretation. Molecular-based testing is highly accurate, but as in any laboratory test, diagnostic errors may occur. False positive or false negative results may occur for reasons that include genetic variants, blood transfusions, bone marrow transplantation, somatic or tissue-specific mosaicism, mislabeled samples, or erroneous representation of family relationships. This test was developed and its performance characteristics determined by [facility]. It has not been cleared or approved by the Food and Drug Administration. References: Jh BR, Xavier PC, Diane KV, Ilya LW, Allan ; [place] [employer] Liver Diseases. Diagnosis and management of hemochromatosis: 2011 practice guideline by the [place] [employer] the [employer] Liver Diseases. Hepatology. 2011 Mar;54(1):328-43. doi: 10.1002/hep.79724. PMID: 87583674; PMCID: MCA6158266. Jasson G, Blake P, Scarlet DW, Kalyn H, Elliott O, Humberto S, Myles I, Nehemias M, Sanjay Rinaldi. [facility] best practice guidelines for the molecular genetic diagnosis of hereditary hemochromatosis (HH). Eur J Hum Sisi. 2016 Dec;24(4):479-95. doi: 10.1038/ejhg.2015.128. Epub 2014Mar 14. PMID: 16424822; PMCID: IZC8356275. Reviewed by: Comment TG Technical Component performed at [facility] RTP Professional Component performed by: Selena Funes, Ph.D., [facility] Director, Molecular Genetics [address] [place] [address] Performed at: [email or web address] [id number] PhD Poncho Prater Performed By: #### 1 [id number] #### [facility] [address] [place] [address] Copper Lvlon 03-04-2024 Copper [Mass/Vol] 80 microgram/dL Invalid Interpretation Code 69-132 [facility] Comment on above: Result Comment: This test was developed and its performance characteristics determined by [facility]. It has not been cleared or approved by the Food and Drug Administration. Detection Limit = 5 Performed at: [address] [id number] MD Héctor Carney Performed By: #### 1 [id number] #### [facility] [address] [place] [address] Haptoglobinon 03-04-2024 Haptoglobin [Mass/Vol] mg/dL Low 17-317 [facility] Comment on above: Result Comment: Perf ormed at: [facility] [id number] PhD Poncho Prater Performed By: #### 2 [id number] #### [facility] [address] [place] [address] BLOOD BANKOrdered By: Maria Isabel bain on 03-02-2024 AYLIN IgG/C3d Tube Negative (03/02/24 1:51 PM) Normal [facility] BB Subsection Bili Tot/Diron 03-02-2024 Bilirubin [Mass/Vol] 5.0 mg/dL High 0.0-1.1 [facility] Comment on above: Performed By: #### 2 [id number] #### [facility] [address] [place] [address] Bilirubin.direct [Mass/Vol] 1.2 mg/dL High 0.0-0.4 [facility] Comment on above: Performed By: #### 2 [id number] #### [facility] [address] [place] [address] Bilirubin.indirect [Mass or moles/Vol] 3.8 mg/dL High 0.1-0.9 [facility] Comment on above: Performed By: #### 2 [id number] #### [facility] [address] [place] [address] CBC w/ Auto Diffon 4 Basophils/100 WBC (Bld) 0.6 % Normal 0.0-2.0 [facility] Comment on above: Performed By: #### 2 [id number] #### [facility] [address] [place] [address] Basophils/Leukocytes Auto (Bld) [Pure # fraction] 0.0 E9/L Normal 0.0-0.2 [facility] Comment on above: Performed By: #### 2 [id number] #### [facility] [address] [place] [address] Eosinophils (Bld) [#/Vol] 0.1 E9/L Normal 0.0-0.5 [facility] Comment on above: Performed By: #### 2 [id number] #### [facility] [address] [place] [address] Eosinophils/100 WBC (Bld) 3.0 % Normal 0.0-8.0 [facility] Comment on above: Performed By: #### 2 [id number] #### [facility] [address] [place] [address] Erythrocyte distribution width (RBC) [Ratio] 15.6 % High 10.9-14.2 [facility] Comment on above: Performed By: #### 2 [id number] #### [facility] [address] [place] [address] Hematocrit (Bld) [Volume fraction] 33.0 % Low 37.7-49.0 [facility] Comment on above: Performed By: #### 2 [id number] #### [facility] [address] [place] [address] Hemoglobin (Bld) [Mass/Vol] 11.7 g/dL Low 13.5-17.5 [facility] Comment on above: Performed By: #### 2 [id number] #### [facility] [address] [place] [address] Lymphocytes (Bld) [#/Vol] 1.1 E9/L Normal 1.0-4.0 [facility] Comment on above: Performed By: #### 2 [id number] #### [facility] [address] [place] [address] Lymphocytes/100 WBC (Bld) 24.5 % Normal 14.0-50.0 [facility] Comment on above: Performed By: #### 2 [id number] #### [facility] [address] [place] [address] MCH (RBC) [Entitic mass] 37.3 pg High 27.0-34.0 [facility] Comment on above: Performed By: #### 2 [id number] #### [facility] [address] [place] [address] MCHC (RBC) [Mass/Vol] 35.5 g/dL Normal 31.4-36.0 [facility] Comment on above: Performed By: #### 2 [id number] #### [facility] [address] [place] [address] MCV (RBC) [Entitic vol] 105.0 fL High 80.0-100.0 [facility] Comment on above: Performed By: #### 2 [id number] #### [facility] [address] [place] [address] Monocytes (Bld) [#/Vol] 0.4 E9/L Normal 0.2-1.0 [facility] Comment on above: Performed By: #### 2 [id number] #### [facility] [address] [place] [address] Neutrophils (Bld) [#/Vol] 2.7 E9/L Normal 2.0-7.5 [facility] Comment on above: Performed By: #### 2 [id number] #### [facility] Laboratory [address] [place] [address] Neutrophils/100 WBC (Bld) 62.6 % Normal 36.0-75.0 [facility] Comment on above: Performed By: #### 2 [id number] #### [facility] Laboratory [address] [place] [address] Platelet 85.0 E9/L Low 150.0-500.0 [facility] Comment on above: Performed By: #### 2 [id number] #### [facility] Laboratory [address] [place] [address] Platelet mean volume (Bld) [Entitic vol] 9.2 fL Normal 6.4-10.8 [facility] Comment on above: Performed By: #### 2 [id number] #### [facility] Laboratory [address] [place] [address] RBC (Bld) [#/Vol] 3.2 E12/L Low 4.3-5.9 [facility] Comment on above: Performed By: #### 2 [id number] #### [facility] Laboratory [address] [place] [address] WBC corrected for nucl RBC Auto (Bld) [#/Vol] 4.4 E9/L Normal 4.0-11.0 [facility] Comment on above: Performed By: #### 2 [id number] #### [facility] Laboratory [address] [place] [address] CHEMISTRYOrdered By: SYSTEM SYSTEM on 03-02-2024 Bilirubin [Mass/Vol] 5.0 mg/dL High 0.0 - 1.1 mg/dL [facility] Bilirubin.direct [Mass/Vol] 1.2 mg/dL High 0.0 - 0.4 mg/dL [facility] Bilirubin.indirect [Mass or moles/Vol] 3.8 mg/dL High 0.1 - 0.9 mg/dL [facility] Folate [Mass/Vol] 20.5 ng/mL Normal >=6.7ng/mL [facility] Free T4 [Mass/Vol] 0.64 ng/dL Normal 0.58 - 1.64 ng/dL [facility] LDH 238 [iU]/d High 93 - 218 Int._Unit/L [facility] TSH Qn 1.24 m[IU]/L Normal 0.34 - 5.60 mcIU/mL [facility] Chem Consenton 03-02-2024 Consent [id number] Normal [facility] Consent for Treatmenton 02-06 Consent for Treatment [id number] .[id number] Normal [facility] AYLIN IgG/C3d.on 03-02-2024 AYLIN IgG/C3d Tube Negative Normal [facility] Comment on above: Performed By: #### 8 [id number] #### [facility] Laboratory [address] [place] [address] Folateon 03-02-2024 Folate [Mass/Vol] 20.5 ng/mL Normal >=6.7 [facility] Comment on above: Performed By: #### 2 [id number] #### [facility] Laboratory [address] [place] [address] Free T4on 03-02-2024 Free T4 [Mass/Vol] 0.64 ng/dL Normal 0.58-1.64 [facility] Comment on above: Performed By: #### 2 [id number] #### [facility] Laboratory [address] [place] [address] HEMATOLOGYOrdered By: SYSTEM SYSTEM on 03-02-2024 Basophils/100 WBC (Bld) 0.6 % Normal 0.0 - 2.0 % [facility] Basophils/Leukocytes Auto (Bld) [Pure # fraction] 0.0 E9/L Normal 0.0 - 0.2 E9/L [facility] Eosinophils (Bld) [#/Vol] 0.1 E9/L Normal 0.0 - 0.5 E9/L [facility] Eosinophils/100 WBC (Bld) 3.0 % Normal 0.0 - 8.0 % [facility] Erythrocyte distribution width (RBC) [Ratio] 15.6 % High 10.9 - 14.2 % [facility] Hematocrit (Bld) [Volume fraction] 33.0 % Low 37.7 - 49.0 % [facility] Hemoglobin (Bld) [Mass/Vol] 11.7 g/dL Low 13.5 - 17.5 gm/dL [facility] Lymphocytes (Bld) [#/Vol] 1.1 E9/L Normal 1.0 - 4.0 E9/L [facility] Lymphocytes/100 WBC (Bld) 24.5 % Normal 14.0 - 50.0 % [facility] MCH (RBC) [Entitic mass] 37.3 pg High 27.0 - 34.0 pg [facility] MCHC (RBC) [Mass/Vol] 35.5 g/dL Normal 31.4 - 36.0 gm/dL [facility] MCV (RBC) [Entitic vol] 105.0 fL High 80.0 - 100.0 fL [facility] Monocytes (Bld) [#/Vol] 0.4 E9/L Normal 0.2 - 1.0 E9/L [facility] Monocytes/100 WBC (Bld) 9.3 % Normal 4.0 - 14.0 % [facility] Neutrophils (Bld) [#/Vol] 2.7 E9/L Normal 2.0 - 7.5 E9/L [facility] Neutrophils/100 WBC (Bld) 62.6 % Normal 36.0 - 75.0 % [facility] Platelet 85.0 E9/L Low 150.0 - 500.0 E9/L [facility] Platelet mean volume (Bld) [Entitic vol] 9.2 fL Normal 6.4 - 10.8 fL [facility] RBC (Bld) [#/Vol] 3.2 E12/L Low 4.3 - 5.9 E12/L Re misol Heme Reticulocytes/100 RBC (Bld) 2.7 % High 0.5 - 2.2 % [facility] WBC corrected for nucl RBC Auto (Bld) [#/Vol] 4.4 E9/L Normal 4.0 - 11.0 E9/L [facility] LDHon 03-02-2024 LDH 238 Int._Unit/L High 93-218 [facility] Comment on above: Performed By: #### 2 [id number] #### [facility] Laboratory [address] [place] [address] Lab Miscellaneous-LCon 03-02 Test Code 222799 Invalid Interpretation Code [facility] Comment on above: Performed By: #### 1 [id number] #### [facility] Laboratory [address] [place] [address] Test Name HFE gene Invalid Interpretation Code [facility] Comment on above: Performed By: #### 1 [id number] #### [facility] Laboratory [address] [place] [address] Reference Laboratory Testing Ordered By: Karina Vela on 03-02-2024 Test Code 878712 1 Invalid Interpretation Code [facility] [employer] Test Name HFE gene Invalid Interpretation Code [facility] [employer] Retic Counton 03-02-2024 Reticulocytes/100 RBC (Bld) 2.7 % High 0.5-2.2 [facility] Comment on above: Performed By: #### 2 [id number] #### [facility] Laboratory [address] [place] [address] TSHon 03-02-2024 TSH Qn 1.24 m[IU]/L Normal 0.34-5.60 [facility] Comment on above: Performed By: #### 2 [id number] #### [facility] [address] [place] [address] [place] [address] Coding Summary.on 03-01-2024 Coding Summary. PYLLAlsm69QEc9wRc+PG h lYWQ+YH5ICCJrR19xwPOe cU5nT2EBFQwGVumfDIRKJ ByEGbNblnGnUX6azBBvUN Ju IC8+VW3zTBJzZuxzrCVic 1R0fTO5E84kzt7tZRdqfW F6XBNlGsJsldpzq4ttuPf 6IDcuNmluOyBt EYPbqM50SLU4yD16Vq51l GQgcNEir1nnvOy5CzXsPH YsWHP3uNxdKPsir4FgKLE tR57loEWll7R8 ITTyvDwfnMVvDdJwiSW7s R1yHWijubjmv1hnwjpjFi c5wr29xYJxt1S2qZT2K9Z kheX5DYGtzUMc EvzoiTDYrB4bdybch2ahe rumKeEbZWIqHZr5WIt9BH AdjJywZtUkQC10XGA3FEC ztrVaG0KlMVNq rAghXuM6v3M3Ve0PF7USI eryW1XRZJKPYQjokZK+PC 39ul39L4IhIbqcTru5VSP sWSR4yJW9jV2r IVFaXGxbu6C4yIG1A3Tio vPemr2nx0egCDQmCXhmR7 0zjIJqg2J6YESedRF6HBP neDegVrEveD85 Oyc+CXDqwPemc4YdMybnn 2jrg5zbhEb2WvumLAIqpk LiyNjhABZ9c1YtSl2rOBC gmPV4qBN0hT0w QnCoAzA7DBjsL457YzFwe KSnWxnvO97kJ0IaoSE+PH FgDwv7GZYilCefDZ9xY8L hZGRpbmctbGVm rXgpKT2rZOIqptvfVKQuz P8gMRNzV1t8PjCqOeR3ZZ ryO2XbCFYilltvCi28dB1 dXdQtImT8FUcw U7CyhtL6LOFbfEDeDShoO HY1I23ed7I5WEKcNIUsTB N7gFB5mR5tzHbwktkulHQ mdDsgdmVydGlj NXtjWUecV418MGYhlAvoP kNvZGluZyBEYXRlOiAgMD YvMjUvMjAyNDwvdGQ+PHR gIUC8gJuuTSSi aAOwHYbaSl1btUhjiXseL P4dGGLtgtacOERspC8bGJ VilSRzgZwpZA6fESFvtjz fe042XjOzRIA5 POCiuRCfF2HuhM6wEpQfM VFvYDAoC7MdpIDcKMmdI6 07EXooCtJ5BRTvpnLzW1T sLWFsaWduOiB0 b9V4Rf8Hb3MxtocpI7Rte GWoIuAxNoarKKt6Q9AfMi wvdHI+ZQ38EQLyEI35NOh 5XDQ2oVjvZGjr OSGsU0QpkY2jXwHzNAZwD GRkOyc+PHRhYmxlIHdpZH RoPScxMDAlJyBzdHlsZT0 aHg3zWFPeBEKi aIdwgFBjKzWem7goWAWtN RfsXL5hqOvvF1GdeNV7FW Wlr4j3Xh79Z85eP2SkoLO +LGSxwVY1yOR1 eA8kHqXnPhY5PNmzR932I dFcwRRqBcvvc6mkh3fjpE t0LlA4XOGyniPwuCscXYA 2l0KjYm54X56h IHdpZHRoPSIxNSUiIHZhb Qugui0qsQ4wGu8+PGNvbC F2xMI3mC5hHnZyXeU6ALp bH519VeAgrGEo Iovrx0xap4hlkGj6PwBoX RDqptXnjXymKKJ4v3SuVz 93J5XjzIuga3WbFdx2iv6 3cOQbo3O9oKV2 Y3CaFXNfpomcqQNmsNzeN E4cCZNffmaeYYVujO5cQW OsD7h0SuDpXyT8SWmzF1O dmcW8DHWriPQu CDWaiHOUzD6rolchu5xcj xtjRzFaAESfDSq9KLh4BZ AqiSbuNsKoSSR3IbV6ZZX 8lBKpgP5nrFqj gdfvbZ2lSvr+VXV9oMVbe DJPTW0rTsodoXO+PHRkIH V0hDpwXYakXUOrmG0jOXS sM5t1KzArWdD2 CJbzS3GiwiN6SJAllYWaL NDuaBLXnK8xspbxe5xxvh ybDsBkPBQgUCq5VYj9ESR saWduOiBsZWZ0 ToD7SRE6eYRglF3jjXclb yxibA9iBnc+QmlydGggRG U0ADb8K2FtMfb3PRNasFu dRE2ztGDlEYtq Oc3dtLjaeGceET7hUDBqp xprw468IgQdb2jaVMPpgF CzADeaVVV1E61fn3V4VAZ yJNZoHRJ2mRC7 kX7njCrrnkdigEZxzDoyw oKytPbyUSowRQiyH615ZM JfeKxoNqWaJEk5Z6TlCys 5VLHvsUlrXN1l fXLoBLdqSt2dyXygwRkxS F3bVQOqvptcr222QuRho8 jgOQYwhZLwTWbnLKF9F93 gd8Z6NQJfAJVr AJZ7sHV7xP7fdHbbcbzta GVmdDsgdmVydGljYWwtYW jsN810QGObdGyeDkQgaQx 6J8KvHbd1ULFd hKvpLW2syEOfBIfgAi8ga OexfDlnXM7kBESvlzgxf3 97KtZnu0osKTTgpUUsQWf mQTT8V31wd4V0 KFLiGGOdTSW8xZJ1jM9rz GlnbjogbGVmdDsgdmVydG pjYAmoHDfuG876SYKkdZp nPlBhdGllbnQg BMxrVDn8K1BxSifubDB+P J41VMUwDL93xMEbrWKgq2 ukpIu2MwUiSNEeTKT7fCs vJHavp1IiUOWh H62rrMLtm2J5OAXapAzkp VRdMxXyxZF7lT2dOLdeek znd1dkznriDossf3lcvr0 2rG91E04iRJcd ZHRoPSIzMCUiIHZhbGlnb v5tyJ2yFf4+VQHbhJA4oJ C6eC4aRNUvHbI4CGbqE16 9InRvcCIvPjxj z8ihv7jmcIj1HdC1KFXot fGflMakQVE4l7TmPo69R9 9sIHdpZHRoPSIyMCUiIHZ ntBdyty4imO2g Ii8+HUWneDL2dJM8jX5aU zXsJzV9TRrbX488SyExaL FbBwrkX83aO8GtwOZ+PHR tRyy5BOPlgHyh PU0kcAPiARyzWm2rBZW5H ePbMwPjUViiV5UtVMBesg xrjxjxqCJ9LSTuFNVyzS3 8Oh4hfYqnOLFn ePAJjD2igloia5wixotnQ yGgZALkLFw5FSq6QOHboN pnDrKnQTJ9ZmJ7XMZ2pHV auJ7utMzjcpib cB9pV1BgMOPdywonHd43h M0pOiKhNrG2WMowVdf+SE FQCBWMTJYTZO3KOOy8A4F dUyq7UGLgrGle FD1xnOWuJPuvRy9xhLrju WojJM0iMIFuemsyNZOvqG 3uYOEhcYNnpTmcUM6sFKG tkjsvu877AtTn CLJ7KJFfrTFoN4TvyW1nM bJwYHDzIQHjL3SubXPnNV yrC658JIbtWhQ0FTQrcmU uA0AhPWRoyEva TnU0l0G6Kq8uUS2iQb4vO Kt3NP17WW45hHVla7D7jS W8V9IkEBCnoytamhkjcWZ 4RMUcSBVytN35 aCDyBUunQt6ex7U8s459H QOcZDVomO00Dk5yvDmaLQ WlvLSKaZ8klzzum7ndlbf gIzAwMDAwMDt0 QOm6OWTbsSsyDpYhJSC4Q dH2GBY4vPVyfK3nmUwgam eenC7mHnl+MzkgWWVhcnM 0R5XyXnc4TGDv hCyyXN7uvBLuEJlaMa2aw HznvEhbFJ9cLZJugdsyOH UjmW2qEROxtNOqpEqyXO4 zPADvyycqk534 ThNeLRZ7QEGfhUVoJ5Mbv L4uDpGmUWMnHHTsF6VlpP HkHSqgO743RApxBmN9FVJ clpTzX0YuNQVr yDdpCyP3w1G7Uk8EHXgaA D65KZ04sBJsr2O2rBY3X7 LlDWYpjvfivhjvtDP6WHD vCSJhjD63yLXr CMkiWw7wn4E4b466FYFiL VZovR62Hu1aiDjwXUSvpC EMlD8vpqqoo5ybnkxyBqH hLJOiAJz6KQp2 SFRruWbfMdLhOTV1NwZ5L BW2hVEbxI4glBabhmxvsF 9wOyc+F2T3xAL0tHTyvTg vdGQ+FN38qk06 R7RmGtqpDtz0DVZiDHN3v ZH6iD9tODGfQZilu7Q9oQ E2F7ZjchYxuv3fn1tsOTM oRElgL07noRNq p7K7WCFugVS9RAQdvMguF cWorI13Lop+PGNvbGdyb3 NlMywuh2ucn3juxSa9MlP wJSIgdmFsaWdu EXO2r3XnFb32E11iOUzkS HRoPSIzMCUiIHZhbGlnbj 6qeO3oEi9+XOZnnYJ9bMS 5nM4pGqWgKiD8 UZmwO691WrYkkAVrFfppm 5jbj7wloTb6FhPjBRNtqd CcpGvwKJT6r9WxXj59P8H qqTmgb3PbPla1 nm35jCExr7V6gGS7P0ZuJ UCitbedtNRvwOgiSX3jMU LfkggxHATdqA1jEEZnL1b 1IuXxTkD0NOej B7QdgmS5MTVolSSrCUJvg PAHmK2uqphdl9ldgxrqZi QbOPJgAOo5ZWm8ZFBruGd kCjEbHVG8UwJ6 VOO0uQVcfY2uzSnzqcung G9wOyc+TBn1k8knqZYzAH 3fxCY6NJ39CB66hNBgw3L 2lAG4U8WxVKYu jmqwgujizZJ9EZEpTHMse H63La7brAaeZw0iJIDnAW K5AYFiyRLcP9XakP9bZdC mYEYcWJHzH3Wo bFGvEWrjO241KKodYdP4P IDwsxBqY6KgSBCriIszNd J8i2O3Oc9VGM20PI23UL3 4uLWzi7U1qGN6 A3WiPJFczvmmvomplCO8U XGzZUGqjQ49Mz1rxJdrQs 5yHQTzIBR5OLQxoHBcE6E qfP2rRvDzEEPa MFIhE6BpaDAzBHfoA637M XrtUmZ9TDCuocEaB2XqMG IgvIfeFfK3d0I9Rc0AUb6 0RA93RS91gKJl v5I7bUD6K4DhQFUlhtzai pnqkSO4LBYyBBWpkY74Ra 3npRbvRs1bYQVtHYN5TNY tyERaV1JysZ2k AiFdFOJmKEDiH5BaeVLfP IqlP758FLpyYvJ1CPAabf PqI6VdFUJmeUisOgW9k3T 8Sl1VKZawafs1 X7ZdLbbatVT+EM42KWPgA U06xUFivCQzj0auvKi7Sc NsPCJzDKT0vIvyGOlxh7K hCTQuX81svFBd g8Y8WSOgbFddr (more content not included)... Normal [facility] Coding Summary.on 02-29-2024 Coding Summary. CZSYXetf56CXu1iPd+PG h lYWQ+SZ0GSNFoT61xuHZx eH9qW3WUBGqHGlzyITBRS TxILpBxxwGbSZ6umSIxMV Ju IC8+WE1aVUGvOllxjVRnu 2J1lAD8V69mgp6wQYcajH H0BYXjVuCvhtsid4wgyLd 6IDcuNmluOyBt WVJukJ73HIX4eO32Iw96o FJmbKUks4kttEc5RmFcWK IxOXE0lWpkMRggb7XzLFV aT20qwEPic7U5 BUUpzKormFUxGoCvbVD6x Q2bWUrprvmkt7fkkfhfWz f8uc67fCRfx0K4yRY6D7F pwhD5WIIymUCc MdaskAXTcA5kghgus4jmx vroFxCcNESiYXi4EGe3GP GwoJgmBlBpUB78TKG4FIB uwuNuI9LkVINp cHodPmR2d0S0Wh1NK6YDA ltwT1HENQMHHDvskNK+PC 72pb00B7LiQsfbMxy3TLC sJBU2cKG1jU7q HITpRBlbn4S5xFL4O1Gxc bKcor0ed0isMNDsFTlfM4 0czZYvc1P2KVMyzYA5SOC uqYyhOsZplN67 Oyc+DQJjnDeuv8IqRonfb 4mkh8srlGq8QbpqJVTfuo ZpdEesKPX3w0GqSd9mVHE xwMZ1xWG0qW1d JrRiFuI8QKnzH009MfUzh CDrKxkwH49dC3MohWY+PH XhEyt3JCLksJtmRF1oO2R hZGRpbmctbGVm eKxmSF8rZOWmztclLMXqc U9bOSRzM9x5FfPwJpH6JA rwO4QnEBVflhgjGn99kW2 nVjOiArI9KBdu K7SpfnL3ZYKshKKkAVyhI PA1P97dn1B2KANfVAYjNO H1hXE5tT0owBdawrdwzIV mdDsgdmVydGlj RIsxKMzfI307VZPfnLlrM kNvZGluZyBEYXRlOiAgMD YvMjQvMjAyNDwvdGQ+PHR zKGO9jUwbWGPp jAQvCXeaMx7nrRycgFquL Z1qGLPjfcmwEBDexD0fOU TlpOCyePclLE9oVPMtybe qp630ZhCaXRQ0 TTRppDJhL4TirB9rPvAbY UEaYYTvY7XexNAlGTvwS7 28UMscGbD1KSIdipOrS2Y sLWFsaWduOiB0 z9M4Np9Sc6KxrwbgN3Ldp TTqEyAdYxbgUJb1I9AoIh wvdHI+FQ17GAPeXE07GMs 9VGT0yIbpBJkb SIKeL9OzdC7eUpAcBPGbN GRkOyc+PHRhYmxlIHdpZH RoPScxMDAlJyBzdHlsZT0 nLj5cLDIxZBGm nVssfUWeKjFbu8cgGUTrC HluBC9ksUgmF7BdnLZ2FN Bmy5z0Hk23P12yR7VumHB +WRFksKM9qMC7 mH2mRpDoOfJ5CNtfY640C eUlrUXzPfmcp1upi6ddjA w2BxG8EZZnijLgnFblVSO 9g1KyAh25A53e IHdpZHRoPSIxNSUiIHZhb Jpdpj1pqH8iMg0+PGNvbC E4nUW2fE2dAeUbQpS5JTe qK673JsIouDLy Dhavk3xup2jtgCa2GrVeI RTbflPloPgaGCT0u9ZoAt 41M9IyoDwbe7HoNxh3uy3 3qODnv4Q7zXS4 X4QwBAZkopknxXWufDtmO M3xISHxtyrdDAEgyF2sKF TeL5b2DfXlRqT2NIhgE6I iwaS8YSExcXCb PRQlsUKSiX2zgmros8fkg tfvJwGcHDRbFUm5HXz3OD EgpJxgQzMtGZL8EcC9HCK 9gFGcyU4qlBhb sczijC5tLwx+BLO3lWXtn GMJQO7uWaduvTE+PHRkIH S3lUwgIGdvGLWktK3wPTO lL2p5FrEgPxE1 TRznU2KeygA1QDYeiXUaB TDxcFVQrC9gbsamg4kehz gcVfWcKATwBQx0IMc1EIB saWduOiBsZWZ0 VdG2LWE6oKTrdO2ciCqib mwxiC2jKmc+QmlydGggRG B2PFn1M1IxUrz8MZFxuSg tDF4ggRTjMGvq Zn7voMonpTxuNR8cSWKcs gyoq338QdQlh9wqZMFegM PvFAfrLLG2S67ku9L6MPB jPGQmGLO2mIY9 oZ0zgEghzvjlsDEhdYllo fGfgOdbXYwuTNnfN759PF QmaDfzCcMsTZd5Q7ZrTfi 4FHMqwXhdFG8p jGCkZShlSy7bdFjlnBvlL G1qDYHgntaay566UsYzg7 oyNTChmGYgVBooVNZ2U28 ds9W8ANLnKRCe REM8dIH1gV6utMztoixal GVmdDsgdmVydGljYWwtYW wfQ988FJZswUgtItSdyRq 3U8OkYhw0TEFo aTqeLY2ldGXmZMmrYy8ml EawlWcuDF7gSGEdyrqpk1 49VbJqb7rkZBWuoXSlOJs lQXW2X32bh1A3 DKPcHTZsWFX0nSL0cT0ca GlnbjogbGVmdDsgdmVydG ihOTqsKEgkH245QCWkbGe nPlBhdGllbnQg SIkdQVu9N6VoTrndoBR+P E03TJSpNA17gNDpbIJgg5 hshFc3TeZcCNMsZEC3eNv gOYonz4FoQKNl O41tfVGsr0P2IVXkrPevb QXfVlDhgCV7yQ0jUQfndv ptf7tgjzujXvfck4vvpj8 2eR87G03vVJqd ZHRoPSIzMCUiIHZhbGlnb u6kfM5uTq1+VAClmKL8jM B1rW1iZAGaWtJ7UObhR98 9InRvcCIvPjxj h7hjh8sagSc7BiC2QLLbc kRouCyuVWP2j3DdRn74P2 9sIHdpZHRoPSIyMCUiIHZ cmKzyjz9slP0d Ii8+GSShvMW8lPJ2iZ4bW kHkDaW0RKnfZ204NxMzvA OaGwapB50sS9HjeXG+PHR oAeb1CZTdlSkq ZT4csKAgJEelRd6qWOR0P oOtKrRcVFdxP7AySSJngh jptbtjpSS1FVVlFIKknN5 6Xk1jvVhaBZZq cYFQuM1jtzcis1nkhgbkY lNdHYJfTOp9IIm0HVIpzA dxMpWaTUV0TyI1WLF9sYH bqG0utNnbjdlx cV8cN1OmPJMonpqfHl38n P3cCqXtHjL9FKvvJan+SE HHVSWJRKJZEK3AWCk5J7S rIhp0ZJZpoUkw JI5whPBkMYczNq0qpTtdl EfzJX0zMICgpterSFKqfK 7xOWUnaHMlmEvoXA7aAEZ uxukgb288LfTh JTE6EHKkySJjH9ToiI3vO uCyNGQaRTVbC9QuzHKcJK idG133IItqCbZ9JEWjbkP yH9OwNTExkXlk RhT8r7P7Sf5cAC3wWv4hH Ca8JA28XD50mOUpr7A2qI Y1H7OqRVNfbztdrtjxfQZ 5ZMSbPMRgpW82 qWIgCMeoVj7xs2D7u909F HNvTLOhwU43Ho5oyIkpXM CtrSNQtN6slndow0dnikd gIzAwMDAwMDt0 HHs2SHFpkByuQkBnUBM7S iO5JLO8fGKedC8jzFjkkx gxbE5hLwa+MzkgWWVhcnM 4U4UeSwe9ZNYq lQrkAM7cwDYaMGfxUw5yc KbkrZosEM1cXICdyarxSC CwvZ4fXQBngALqnNmiLE0 xTHGiqbozs416 HcXoTXW1NQTzoFLlW1Lfv K6mKzWgPLAySQYfE9GheZ EjFDsaS300BAgqRaY2UUY islRzU9YvUQUu mOgyNlX1g4A2Hv9RCBxpX L44KW94zVTdf4Z0uBB7S8 EhQLXotzckqpjzdFY9NTZ wHZLgbY43cIYy RNecKp8jb4F2m027NJUsM PFcyZ73Xe1scFurSVVztL RThB7qfnuhr5mowzboZzK hOKIjCIi7WOr1 EQTdcOgiMfLzJLU8XoJ5B FX5sCJdjS8vfAhiabsbhP 9wOyc+Q6P3qQP1sKDidGu vdGQ+RH73wa81 J1FbRoxfTvs0TMByLKN5y ZX6bW8jEZSrMSnyh8D0pO T3A5YbiyLnpv9mx2bmFES hQPymH36pmBIz q4O6GTKjnWY0WRWdoTagY dCgmL55Adm+PGNvbGdyb3 NsHxgqa2arc5waaLv5WcG wJSIgdmFsaWdu ATX0l2YzLq17E26qUMcpW HRoPSIzMCUiIHZhbGlnbj 3bjE5aFh0+XTAhaKC8vOL 6aO3yHxSlMhY6 CObmZ320GlQqqJMgTfacp 7uwy8jcxFi3JbPiDYDczg GksWsoJSQ4p6IsFx75W1Q hfBqky7VlBmt4 ct96yPSfu2B0vKC9T2ZeP BYoopntdNSomOmaQF6mGR WexnqiAJGiqV8oWOGxM1f 6DpHwMoD0GTmh O8DnzqK1YQKlkBTmKCUpy EYTaE6brxhys4xiaweyCi IfEKZpTSd6FIb5JSMzgMy sBbGtEBL5YbT8 WDR9oBOeiQ7fsErxoeefc G9wOyc+WGa6b0hykODbET 4tnFU4PM95NU33rXOde2Y 7aVB4J2GeROYn pykpbngvbRE4KBEcHBOpw R82Sr9igCffHt1tITCpCB Q4CJFnjGHpA5OezG9cKjX mYLCoERRaG9Wa oOYeLLocG381MHejGsD3H GSomyQwP1ZgNLWdkNqrQn K2m1Y8Fn1HCV01SW93TN3 6jUNdm1L9mHS2 R8PgOBQfqzpgrwsifFI4O WZvPDQpiR13Lh1dkSxaRj 3hDMPzRHT8CFRmhPEmQ4F jeU5tTtGdHQSz HBZyH1XmgEYnSNxmB915Q BvzElU6RITitgMbO2LrYG MqnZlyNpW6b7W7Gv7CYy8 9RS70HY91oJPv r8T2rCU4A4FmGTAqhvnlw atveLX5WETtYEQgmJ57Cy 7oiDtpVh1eNELoFBW8KWT tlEKjB6YgzP8l EfLpMEXoJVHbM1SceOFaJ FraL042OFnuOcJ9LPGnmi EiK4CnXIOdaNueCeH5j1L 5Pn5ORPsgwac7 L3ElJfovvZP+QP84NVCrW P34nJGbfXApe5lukQp8Yx EfTHJuUMH8qFtlKDjlx2A uXCOeI69nnTNj h1Y5CODycQpqa (more content not included)... Normal [facility] Consent for Treatmenton 02-06 Consent for Treatment [id number]#1 .00TIFF Normal [facility] Laboratory Outside Office Co pyon 02-25-2024 Laboratory Outside Office Copy [id number]# 1.00TIFF Normal [facility] Outside Records Officeon Outside Records Office [id number]# 1.00TIFF Normal [facility] CBC w/ Auto Diffon 4 Basophils/100 WBC (Bld) 0.6 % Normal 0.0-2.0 [facility] Comment on above: Performed By: #### 2 [id number] #### [facility] [address] [place] [address] Basophils/Leukocytes Auto (Bld) [Pure # fraction] 0.0 E9/L Normal 0.0-0.2 [facility] Comment on above: Performed By: #### 2 [id number] #### [facility] [address] [place] [address] Eosinophils (Bld) [#/Vol] 0.1 E9/L Normal 0.0-0.5 [facility] Comment on above: Performed By: #### 2 [id number] #### [facility] [address] [place] [address] Eosinophils/100 WBC (Bld) 3.8 % Normal 0.0-8.0 [facility] Comment on above: Performed By: #### 2 [id number] #### [facility] [address] [place] [address] Erythrocyte distribution width (RBC) [Ratio] 15.5 % High 10.9-14.2 [facility] Comment on above: Performed By: #### 2 [id number] #### [facility] [address] [place] [address] Hematocrit (Bld) [Volume fraction] 33.1 % Low 37.7-49.0 [facility] Comment on above: Performed By: #### 2 [id number] #### [facility] [address] [place] [address] Hemoglobin (Bld) [Mass/Vol] 11.5 g/dL Low 13.5-17.5 [facility] Comment on above: Performed By: #### 2 [id number] #### [facility] [address] [place] [address] Lymphocytes (Bld) [#/Vol] 0.8 E9/L Low 1.0-4.0 [facility] Comment on above: Performed By: #### 2 [id number] #### [facility] [address] [place] [address] Lymphocytes/100 WBC (Bld) 21.1 % Normal 14.0-50.0 [facility] Comment on above: Performed By: #### 2 [id number] #### [facility] [address] [place] [address] MCH (RBC) [Entitic mass] 37.1 pg High 27.0-34.0 [facility] Comment on above: Performed By: #### 2 [id number] #### [facility] [address] [place] [address] MCHC (RBC) [Mass/Vol] 34.7 g/dL Normal 31.4-36.0 [facility] Comment on above: Performed By: #### 2 [id number] #### [facility] [address] [place] [address] MCV (RBC) [Entitic vol] 106.8 fL High 80.0-100.0 [facility] Comment on above: Performed By: #### 2 [id number] #### [facility] [address] [place] [address] Monocytes (Bld) [#/Vol] 0.4 E9/L Normal 0.2-1.0 [facility] Comment on above: Performed By: #### 2 [id number] #### [facility] [address] [place] [address] Neutrophils (Bld) [#/Vol] 2.4 E9/L Normal 2.0-7.5 [facility] Comment on above: Performed By: #### 2 [id number] #### [facility] [address] [place] [address] Neutrophils/100 WBC (Bld) 65.0 % Normal 36.0-75.0 [facility] Comment on above: Performed By: #### 2 [id number] #### [facility] [address] [place] [address] Platelet 73.0 E9/L Low 150.0-500.0 [facility] Comment on above: Result Comment: Tierney pheral smear review performed. Performed By: #### 2 [id number] #### [facility] [address] [place] [address] Platelet mean volume (Bld) [Entitic vol] 8.8 fL Normal 6.4-10.8 [facility] Comment on above: Performed By: #### 2 [id number] #### [facility] [address] [place] [address] RBC (Bld) [#/Vol] 3.1 E12/L Low 4.3-5.9 [facility] Comment on above: Performed By: #### 2 [id number] #### [facility] [address] [place] [address] WBC corrected for nucl RBC Auto (Bld) [#/Vol] 3.8 E9/L Low 4.0-11.0 [facility] Comment on above: Performed By: #### 2 [id number] #### [facility] [address] [place] [address] CHEMISTRYOrdered By: SYSTEM SYSTEM on 02-20-2024 Albumin [Mass/Vol] 3.1 g/dL Low 3.3 - 5.0 gm/dL R emisol Chem Albumin/Globulin [Mass ratio] 0.9 {ratio} Low 1.1 - 2.2 Remisol Chem ALP [Catalytic activity/Vol] 190 [iU]/d High 21 - 98 Int._Unit/L Remisol Chem ALT No additional P-5'-P [Catalytic activity/Vol] 77 [iU]/d High 6 - 46 Int._Unit/L Remisol Chem Anion gap [Moles/Vol] 10 mmol/L Normal 6 - 16 mEq/L [facility] Chem AST [Catalytic activity/Vol] 120 [iU]/d High 5 - 43 Int._Unit/L Remisol Chem Bilirubin [Mass/Vol] 7.8 mg/dL High 0.0 - 1.1 mg/dL [facility] Chem Calcium [Mass/Vol] 8.4 mg/dL Low 8.9 - 11.1 mg/dL Rem[facility] Chem Chloride [Moles/Vol] 103 mmol/L Normal 101 - 111 mmol/ L [facility] Chem CO2 [Moles/Vol] 27 mmol/L Normal 21 - 31 mmol/L Remis ol Chem Cobalamin (Vitamin B12) [Mass/Vol] pg/mL Normal 50 - 1500 pg/mL Rem[facility] Chem Creatinine [Mass/Vol] 0.6 mg/dL Normal 0.5 - 1.3 mg/dL Remisol Chem eGFR 126 mL/min/1.73 m2 Normal >=59mL/mi n/1.73 m2 Rem[facility] Chem Ferritin [Mass/Vol] 527 ng/mL High 24 - 336 ng/mL R emisol Chem Globulin (S) [Mass/Vol] 3.4 g/dL Normal 1.4 - 4.0 gm/dL Remisol Chem Glucose [Mass/Vol] 192 mg/dL Normal 55 - 199 mg/dL Re misol Chem Iron [Mass/Vol] 227 ug/dL High 35 - 153 mcg/dL Gerardo bobbi Chem Iron binding capacity [Mass/Vol] 230 ug/dL Low 250 - 400 mcg/dL Remisol Pamela m Iron saturation [Mass fraction] 99 % High 20 - 50 % Remisol Chem Potassium [Moles/Vol] 3.6 mmol/L Normal 3.5 - 5.3 mmol/L Remisol Chem Protein [Mass/Vol] 6.5 g/dL Normal 6.0 - 7.8 gm/dL R emisol Chem Sodium [Moles/Vol] 136 mmol/L Normal 135 - 145 mmol/L Remisol Chem Transferrin [Mass/Vol] 164 mg/dL Low 200 - 370 mg/dL Remisol Chem Urea nitrogen [Mass/Vol] 6 mg/dL Normal 5 - 21 mg/dL Remisol Chem Urea nitrogen/Creatinine [Mass ratio] 10 mg/mg Normal 10 - 20 Remisol Chem CMPon 02-20-2024 Albumin [Mass/Vol] 3.1 g/dL Low 3.3-5.0 [facility] Comment on above: Performed By: #### 2 [id number] #### [facility] [address] [place] [address] Albumin/Globulin (S) [Mass conc ratio] 0.9 Low 1.1-2.2 [facility] Comment on above: Performed By: #### 2 [id number] #### [facility] [address] [place] [address] ALP [Catalytic activity/Vol] 190 Int._Unit/L High 21-98 [facility] Comment on above: Performed By: #### 2 [id number] #### [facility] [address] [place] [address] ALT No additional P-5'-P [Catalytic activity/Vol] 77 Int._Unit/L High 6-46 [facility] Comment on above: Performed By: #### 2 [id number] #### [facility] [address] [place] [address] Anion gap [Moles/Vol] 10 mmol/L Normal 6-16 [facility] Comment on above: Performed By: #### 2 [id number] #### [facility] [address] [place] [address] AST [Catalytic activity/Vol] 120 Int._Unit/L High 5-43 [facility] Comment on above: Performed By: #### 2 [id number] #### [facility] [address] [place] [address] Bilirubin [Mass/Vol] 7.8 mg/dL High 0.0-1.1 [facility] Comment on above: Performed By: #### 2 [id number] #### [facility] [address] [place] [address] Calcium [Mass/Vol] 8.4 mg/dL Low 8.9-11.1 [facility] Comment on above: Performed By: #### 2 [id number] #### [facility] [address] [place] [address] Chloride [Moles/Vol] 103 mmol/L Normal 101-111 [facility] Comment on above: Performed By: #### 2 [id number] #### [facility] [address] [place] [address] CO2 [Moles/Vol] 27 mmol/L Normal 21-31 [facility] Comment on above: Performed By: #### 2 [id number] #### [facility] [address] [place] [address] Creatinine [Mass/Vol] 0.6 mg/dL Normal 0.5-1.3 [facility] Comment on above: Performed By: #### 2 [id number] #### [facility] [facility] [address] [place] [address] Globulin (S) [Mass/Vol] 3.4 g/dL Normal 1.4-4.0 [facility] Comment on above: Performed By: #### 2 584415 #### [facility] [address] [place] [address] Glucose [Mass/Vol] 192 mg/dL Normal 55-199 [facility] Comment on above: Performed By: #### 2 114253 #### [facility] [address] [place] [address] Potassium [Moles/Vol] 3.6 mmol/L Normal 3.5-5.3 [facility] Comment on above: Performed By: #### 2 942990 #### [facility] [address] [place] [address] Protein [Mass/Vol] 6.5 g/dL Normal 6.0-7.8 [facility] Comment on above: Performed By: #### 2 582867 #### [facility] [address] [place] [address] Sodium [Moles/Vol] 136 mmol/L Normal 135-145 [facility] Comment on above: Performed By: #### 2 197519 #### [facility] [address] [place] [address] Urea nitrogen [Mass/Vol] 6 mg/dL Normal 5-21 [facility] Comment on above: Performed By: #### 2 258879 #### [facility] [address] [place] [address] Urea nitrogen/Creatinine [Mass ratio] 10 No Units Normal 10-20 [facility] Comment on above: Performed By: #### 2 291550 #### [facility] [address] [place] [address] Consent for Treatmenton 02-05 Consent for Treatment [id number] .00TIFF Normal [facility] Ferritinon 02-20-2024 Ferritin [Mass/Vol] 527 ng/mL High 24-336 [facility] Comment on above: Performed By: #### 2 007751 #### [facility] [address] [place] [address] HEMATOLOGYOrdered By: SYSTEM SYSTEM on 02-20-2024 Basophils/100 WBC (Bld) 0.6 % Normal 0.0 - 2.0 % Remisol Heme Basophils/Leukocytes Auto (Bld) [Pure # fraction] 0.0 E9/L Normal 0.0 - 0.2 E9/L Remisol Heme Eosinophils (Bld) [#/Vol] 0.1 E9/L Normal 0.0 - 0.5 E9/L Remisol Heme Eosinophils/100 WBC (Bld) 3.8 % Normal 0.0 - 8.0 % Remisol Heme Erythrocyte distribution width (RBC) [Ratio] 15.5 % High 10.9 - 14.2 % Remisol Heme Hematocrit (Bld) [Volume fraction] 33.1 % Low 37.7 - 49.0 % Remisol Heme Hemoglobin (Bld) [Mass/Vol] 11.5 g/dL Low 13.5 - 17.5 gm/dL Remisol Heme Lymphocytes (Bld) [#/Vol] 0.8 E9/L Low 1.0 - 4.0 E9/L Remisol Heme Lymphocytes/100 WBC (Bld) 21.1 % Normal 14.0 - 50.0 % Remisol Heme MCH (RBC) [Entitic mass] 37.1 pg High 27.0 - 34.0 pg Remisol Heme MCHC (RBC) [Mass/Vol] 34.7 g/dL Normal 31.4 - 36.0 gm/dL Remisol Heme MCV (RBC) [Entitic vol] 106.8 fL High 80.0 - 100.0 fL Remisol Heme Monocytes (Bld) [#/Vol] 0.4 E9/L Normal 0.2 - 1.0 E9/L Remisol Heme Monocytes/100 WBC (Bld) 9.5 % Normal 4.0 - 14.0 % Remisol Heme Neutrophils (Bld) [#/Vol] 2.4 E9/L Normal 2.0 - 7.5 E9/L Remisol Heme Neutrophils/100 WBC (Bld) 65.0 % Normal 36.0 - 75.0 % Remisol Heme Platelet 73.0 E9/L Low 150.0 - 500.0 E9/L [facility] Comment on above: Result Comment: Tierney pheral smear review performed. Platelet mean volume (Bld) [Entitic vol] 8.8 fL Normal 6.4 - 10.8 fL Remisol Heme RBC (Bld) [#/Vol] 3.1 E12/L Low 4.3 - 5.9 E12/L Re misol Heme WBC corrected for nucl RBC Auto (Bld) [#/Vol] 3.8 E9/L Low 4.0 - 11.0 E9/L Remisol Heme Ironon 02-20-2024 Iron [Mass/Vol] 227 microgram/dL High 35-153 [facility] Comment on above: Performed By: #### 2 668596 #### [facility] [address] [place] [address] Iron Saturationon 02-20-2024 Iron binding capacity [Mass/Vol] 230 microgram/dL Low 250-400 [facility] Comment on above: Performed By: #### 2 107413 #### [facility] [address] [place] [address] Iron saturation [Mass fraction] 99 % High 20-50 [facility] Comment on above: Performed By: #### 2 631947 #### [facility] [address] [place] [address] Transferrinon 02-20-2024 Transferrin [Mass/Vol] 164 mg/dL Low 200-370 [facility] Comment on above: Performed By: #### 2 688064 #### [facility] [address] [place] [address] Vit B12on 02-20-2024 Cobalamin (Vitamin B12) [Mass/Vol] pg/mL Normal 50-1500 [facility] Comment on above: Performed By: #### 2 543525 #### [facility] [address] [place] [address] eGFRon 02-20-2024 eGFR 126 mL/min/1.73 m2 Normal >=59 [facility] Comment on above: Order Comment: Order added by Discern Expert. Performed By: #### 1 [id number] #### [facility] [address] [place] [address] Family Medicine Office/Clini c Noteon 01-29-2024 Family Medicine Office/Clinic Note Normal [facility] Comment on above: Result Comment: Elec tronically Signed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 Iron [Mass/Vol] 269 microgram/dL High 35-153 [facility] Comment on above: Performed By: #### 2 529517, 5558043, 07920320, 0975980, 5881789, 9976883, 2569922798, 8655747, 244604203, 65904328, 9697043, 9394484, 2431105, 775110750, 737189433, 9099882181 ####[facility] [address] [place] [address] Lipase Levelon 12-21-2023 Lipase [Catalytic activity/Vol] 19 U/L Normal 13-58 [facility] Comment on above: Performed By: #### 2 403600, 5829357, 3475467, 8966630, 2391144, 9064023, 3775265, 37472843 ####[facility] [address] [place] [address] Magnesiumon 12-21-2023 Magnesium [Mass/Vol] 1.6 mg/dL Normal 1.3-2.4 [facility] Comment on above: Performed By: #### 2 998984, 7739189, 78758921, 7705367, 5231545, 6931203, 5896059698, 2543874, 420644207, 41661721, 2125417, 3955465, 7182410, 873140919, 163388892, 7255808274 ####[facility] [address] [place] [address] PTon 12-21-2023 INR Coag (PPP) [Relative time] 1.81 {INR} Invalid Interpretation Code [facility] Comment on above: Result Comment: INR results are specifically intended to assess patients stabilized on long-term Anticoagulation therapy suggested INR?s ?Less Intensive Anticoagulation? 2.0 ? 3.0Conventional Range 3.0 ? 4.5 Performed By: #### 2 971080, 7519187, 2539774, 8223783, 4394706, 1118669, 3603984, 82336893 ####[facility] [address] [place] [address] PT Coag (PPP) [Time] 20.4 second(s) High 9.4-12.5 [facility] Comment on above: Result Comment: 15 d ays - 4 weeks 1 - 5 months 6 -11 months 1 ? 5 years 6 ? 10 years 11 -17 years Mean: 11.2 (9.5 ? 12.6) Mean: 11.0 (9.7 ? 12.8) Mean: 11.0 (9.8 ? 13.0) Mean: 11.3 (9.9 ? 13.4) Mean: 11.7 (10.0 ? 14.6) Mean: 11.8 (10.0 - 14.1) Pediatric Reference ranges were obtained from a study by Julito Najera et al. prepared from 1437 samples obtained at 7 different centers using the same coagulation reagent and instrumentation as [facility]. Currently there are no coagulation studies available worldwide for children to 14 days, and no normal ranges. Performed By: #### 2 293613, 6624908, 1501478, 3325983, 0192876, 3234247, 4038116, 64365265 ####[facility] [address] [place] [address] Phosphoruson 12-21-2023 Phosphate [Mass/Vol] 3.6 mg/dL Normal 1.9-4.6 [facility] Comment on above: Performed By: #### 2 597164, 9086302, 50553884, 9924893, 4533543, 1677425, 4405956441, 0600450, 903124299, 40727315, 9170587, 7700900, 8455831, 248104138, 149820041, 1874324986 ####[facility] [address] [place] [address] Retic Counton 12-21-2023 Reticulocytes/100 RBC (Bld) 3.6 % High .5-2.2 [facility] Comment on above: Performed By: #### 2 826022, 7106467, 44858717, 6467366, 2310843, 6120565, 0460006982, 2450832, 264327892, 41978814, 2224387, 7228021, 2238396, 003457127, 697968178, 4093543530 ####[facility] [address] [place] [address] TIBC Calculatedon 12-21-2023 Iron binding capacity [Mass/Vol] 288 microgram/dL Normal 250-400 [facility] Comment on above: Performed By: #### 2 519664, 6934671, 18823814, 7727699, 3308672, 9992028, 0738278602, 0073203, 515994197, 62799554, 7738048, 8170696, 0491817, 997142132, 601084870, 4377626788 ####[facility] [address] [place] [address] Transferrin [Mass/Vol] 206 mg/dL Normal 200-370 [facility] Comment on above: Performed By: #### 2 951202, 5410837, 46529447, 9440572, 0032593, 2345857, 0188826618, 1802247, 821724404, 02344684, 8216230, 9936892, 6505257, 082519591, 377772738, 3568344915 ####[facility] [address] [place] [address] TSH With T4fr Reflexon 12-20 TSH Qn 1.64 m[IU]/L Normal 0.34-5.60 [facility] Comment on above: Performed By: #### 2 738582, 0399377, 10521923, 1004667, 3020263, 0569970, 0789502622, 5970555, 950761211, 45450460, 2636209, 2915376, 9296514, 750156552, 771923047, 6016174209 ####[facility] [address] [place] [address] UA with Cult Rflxon 12-21-19 24 Bilirubin Ql (U) Negative Normal Negative [facility] Comment on above: Performed By: #### 4 [id number] ####[facility] [address] [place] [address] Clarity (U) Clear Normal Clear [facility] Comment on above: Performed By: #### 4 [id number] ####[facility] [address] [place] [address] Color (U) Yellow Normal Yellow [facility] Comment on above: Result Comment: Micr oscopic readings are only performed on those samples that meet specific criteria set forth by [facility]. Performed By: #### 4 [id number] ####[facility] [address] [place] [address] Glucose Ql (U) Negative Normal Negative [facility] Comment on above: Performed By: #### 4 [id number] ####[facility] [address] [place] [address] Hemoglobin Auto test strip (U) [Mass/Vol] Trace Abnormal Negative [facility] Comment on above: Performed By: #### 4 [id number] ####[facility] [address] [place] [address] Ketones Auto test strip Ql (U) Negative Normal Negative [facility] Comment on above: Performed By: #### 4 [id number] ####[facility] [address] [place] [address] Leukocyte esterase Auto test strip Ql (U) Negative Normal Negative [facility] Comment on above: Performed By: #### 4 [id number] ####[facility] [address] [place] [address] Nitrite Auto test strip Ql (U) Negative Normal Negative [facility] Comment on above: Performed By: #### 4 [id number] ####[facility] [address] [place] [address] pH (U) 6.5 [pH] Invalid Interpretation Code 5.0-9.0 [facility] Comment on above: Performed By: #### 4 [id number] ####[facility] [address] [place] [address] Protein Ql (U) Negative Normal Negative [facility] Comment on above: Performed By: #### 4 [id number] ####[facility] [address] [place] [address] Specific gravity (U) [Rel density] 1.009 Invalid Interpretation Code 1.005-1.030 [facility] Comment on above: Performed By: #### 4 [id number] ####[facility] [address] Urobilinogen (U) [Mass/Vol] Negative Normal Negative [facility] Comment on above: Performed By: #### 4 [id number] ####[facility] [address] Type of Urine collection method Cysto Normal [facility] Comment on above: Performed By: #### 4 [id number] ####[facility] [address] URINALYSISOrdered By: SYSTEM SYSTEM on 12-21-2023 Bilirubin Ql (U) Negative Normal Negativemg/dL FT UA Auto SS Clarity (U) Clear (12/21/23 1:21 PM) Normal Clear [facility] UA Auto SS Color (U) Yellow 1 (12/21/23 1:21 PM) Normal Yellow [facility] UA Auto SS Comment on above: Interpretive Data: M icroscopic readings are only performed on those samples that meet specific criteria set forth by [facility]. Glucose Ql (U) Negative Normal Negativemg/dL FT UA Auto SS Hemoglobin Auto test strip (U) [Mass/Vol] Trace mg/dL Invalid Interpretation Code Negativemg/dL FT UA Auto SS Ketones Auto test strip Ql (U) Negative Normal Negativemg/dL FT UA Auto SS Leukocyte esterase Auto test strip Ql (U) Negative Normal NegativeLeu/uL [facility] UA Auto SS Nitrite Auto test strip Ql (U) Negative Normal Negativemg/dL FT UA Auto SS pH (U) 6.5 *NA* (12/21/23 1:21 PM) Invalid Interpretation Code 5.0 - 9.0 [facility] UA Auto SS Protein Ql (U) Negative Normal Negativemg/dL FT UA Auto SS Specific gravity (U) [Rel density] 1.009 *NA* (12/21/23 1:21 PM) Invalid Interpretation Code 1.005 - 1.030 [facility] UA Auto SS Urobilinogen (U) [Mass/Vol] Negative Normal Negativemg/dL [facility] UA Auto SS URINALYSISOrdered By: Karina Vela on 12-21-2023 UA Spec Desc Cysto (12/21/23 1:21 PM) Normal [facility] UA Auto SS Uric Acidon 12-21-2023 Urate (U) [Mass/Vol] 3.8 mg/dL Normal 2.2-7.4 [facility] Comment on above: Performed By: #### 2 058673, 7339344, 00099315, 6570446, 0897161, 8942695, 2488473008, 1120118, 270264323, 84035009, 6256697, 7282061, 4487349, 156222755, 422299265, 1114782761 ####[facility] [address] [place] [address] Vit B12on 12-21-2023 Cobalamin (Vitamin B12) [Mass/Vol] pg/mL Normal 50-1500 [facility] Comment on above: Performed By: #### 2 209593, 6521361, 24653416, 8325535, 8739092, 8829804, 3121861604, 2521094, 891935168, 13726052, 6063262, 5534815, 9100163, 408826723, 269724551, 9041679409 ####[facility] [address] [place] [address] Vitamin D 25 Hydroxyon 12-20 25-hydroxyvitamin D3 [Mass/Vol] 17.7 ng/mL Low 30.0-100.0 [facility] Comment on above: Performed By: #### 2 365571, 0021657, 99689379, 3969731, 8408838, 4014175, 3589157131, 6935710, 714806050, 12863458, 4599557, 0181501, 2339733, 675868904, 123535950, 7955656922 ####[facility] [address] [place] [address] eGFRon 12-21-2023 eGFR 120 mL/min/1.73 m2 Normal >=59 [facility] Comment on above: Order Comment: Order added by Discern Expert. Performed By: #### 2 902189, 4670148, 6340565, 9175200, 9315603, 5480090, 6582994, 82270406 ####[facility] [address] [place] [address] Physician Referralon 024 Physician Referral [id number] Normal [facility] Stress EKG Tracingson 2023 Stress EKG Tracings [id number] .[id number] Normal [facility] Discharge Instructionson Discharge Instructions [id number] #[id number] Normal [facility] Inpatient Clinical Summaryon 12-14-2023 Inpatient Clinical Summary Normal [facility] Inpatient Patient Summaryon 12-14-2023 Inpatient Patient Summary Normal [facility] Population Healthon 12-14-19 24 Population Health Normal [facility] BMPon 12-13-2023 Anion gap [Moles/Vol] 8 mmol/L Normal 6-16 [facility] Comment on above: Performed By: #### 1 7071243, 7646697 ####[facility] [address] [place] [address] Calcium [Mass/Vol] 8.0 mg/dL Low 8.9-11.1 [facility] Comment on above: Performed By: #### 1 0803521, 2296929 ####[facility] [address] [place] [address] Chloride [Moles/Vol] 105 mmol/L Normal 101-111 [facility] Comment on above: Performed By: #### 1 3923644, 3254597 ####[facility] [address] [place] [address] CO2 [Moles/Vol] 26 mmol/L Normal 21-31 [facility] Comment on above: Performed By: #### 1 4581815, 4924122 ####[facility] [address] [place] [address] Creatinine [Mass/Vol] 0.5 mg/dL Normal 0.5-1.3 [facility] Comment on above: Performed By: #### 1 9041999, 4342925 ####[facility] [address] [place] [address] Glucose [Mass/Vol] 97 mg/dL Normal 55-199 [facility] Comment on above: Performed By: #### 1 5496584, 7664192 ####[facility] [address] [place] [address] Potassium [Moles/Vol] 4.5 mmol/L Normal 3.5-5.3 [facility] Comment on above: Performed By: #### 1 8857705, 8660321 ####[facility] [address] [place] [address] Sodium [Moles/Vol] 134 mmol/L Low 135-145 [facility] Comment on above: Performed By: #### 1 5823846, 6659937 ####[facility] [address] [place] [address] Urea nitrogen [Mass/Vol] 9 mg/dL Normal 5-21 [facility] Comment on above: Performed By: #### 1 1601766, 3235151 ####[facility] [address] [place] [address] Urea nitrogen/Creatinine [Mass ratio] 18 No Units Normal 10-20 [facility] Comment on above: Performed By: #### 1 5591265, 1913679 ####[facility] [address] [place] [address] CHEMISTRYOrdered By: SYSTEM SYSTEM on 12-13-2023 Anion gap [Moles/Vol] 8 mmol/L Normal 6 - 16 mEq/L Remisol Chem Calcium [Mass/Vol] 8.0 mg/dL Low 8.9 - 11.1 mg/dL [facility] Chem Chloride [Moles/Vol] 105 mmol/L Normal 101 - 111 mmol/ L [facility] Chem CO2 [Moles/Vol] 26 mmol/L Normal 21 - 31 mmol/L Remis ol Chem Creatinine [Mass/Vol] 0.5 mg/dL Normal 0.5 - 1.3 mg/dL [facility] Chem eGFR 133 mL/min/1.73 m2 Normal >=59mL/mi n/1.73 m2 Rem[facility] Chem Glucose [Mass/Vol] 97 mg/dL Normal 55 - 199 mg/dL Re misol Chem Potassium [Moles/Vol] 4.5 mmol/L Normal 3.5 - 5.3 mmol/L Rem[facility] Chem Sodium [Moles/Vol] 134 mmol/L Low 135 - 145 mmol/L [facility] Urea nitrogen [Mass/Vol] 9 mg/dL Normal 5 - 21 mg/dL [facility] Chem Urea nitrogen/Creatinine [Mass ratio] 18 mg/mg Normal 10 - 20 Rem[facility] Chem Discharge Note-Nursingon Discharge Note-Nursing Normal [address] [facility] [address] [place] [address]- \.br\ New Follow Up Appointments after Discharge\.br\ Follow Up with Lsia Lopez When: In 0 days\.br\ Where:\.br\ [address]br\ [facility] 4\.br\ [place] [address]-\.br\ Business (1)\.br\ Medications\.br\ What How Much When Why Instructions Next Dose\.br\ Unchanged folic acid (folic acid 1 mg Tab) 1 Tablets By Mouth Every day 12/14/2023 @ 9am\.br\ Unchanged furosemide (furosemide 20 mg Tab) 1 Tablets By Mouth Every day 12/14/2023 @ 9am\.br\ Unchanged lactulose (lactulose 10 g/ 15 mL Oral Syrup) 30 Milliliter By Mouth 4 times a day 12/13/2023 @ 2pm\.br\ Unchanged lidocaine topical (lidocaine Top 5% film Patch) 1 Patches Topical Every day Abscess of left leg excluding foot apply 12 hours on and 12 hours off daily remove patches after 12 hours may substitute for 4 % patches if insurance coverage issue 12/14/2023 @ 9am\.br\ Unchanged Misc Prescription (BP cuff device and appropriate size please) See instructions HTN (hypertension) BP Device/ machine and cuff (size appropriate) \.br\ Unchanged Misc Prescription (Misc DME Prescription) See instructions [place] SAP Dressing 4 x 4 dressing \.br\ Unchanged Misc Prescription (Misc DME Prescription) See instructions LiquidIV hydration \.br\ Unchanged Misc Prescription (Misc DME Prescription) See instructions Muscle & joint balm CBD 880mg \.br\ Unchanged multivitamin (Tab-A-Scott oral tablet) 1 Tablets By Mouth Every day 12/14/2023 @ 9am\.br\ Unchanged mycophenolate mofetil (mycophenolate mofetil 500 mg oral tablet) 1 Tablets By Mouth 2 times a day 12/13/2023 @ 9pm\.br\ Unchanged naloxone (Narcan 4 mg/ 0.1 mL nasal spray) 4 Milligram Nasal Inhalation As Directed Pain for suspected overdose symptoms \.br\ Unchanged ondansetron (Zofran ODT 4 mg Tab) 1 Tablets By Mouth 3 times a day as needed for Nausea Nausea 3 times a day as needed for Nausea\.br\ Unchanged oxycodone (oxyCODONE 5 mg Tab) 0.5 tab By Mouth Every 6 hours as needed for for pain Peripheral vascular disease Leg pain for leg pain Every 6 hours as needed for for pain, cannot take next dose till 12/13/2023 @ 12pm\.br\ Unchanged potassium chloride (Potassium Chloride (Kib-Liyd-Ius M20) 20 mEq oral tablet, extended release) 1 Tablets By Mouth 2 times a day 12/13/2023 @ 9pm\.br\ Unchanged spironolactone (spironolactone 50 mg Tab) 1 Tablets By Mouth Every day 12/14/2023 @ 9am\.br\ Unchanged sulfamethoxazole- trimethoprim (Bactrim) By Mouth taskes 3 times a week resume home dose schedule\.br\ Test Results\.br\ CBC \.br\ BMP \.br\ WBC: 5.3 E9/L (12/11/23 09:31:00)\.br\ Glucose Lvl: 97 mg/dL (12/13/23 07:28:00)\.br\ RBC: 3.1 E12/L Low (12/11/23 09:31:00)\.br\ BUN: 9 mg/dL (12/13/23 07:28:00)\.br\ HGB: 11.3 gm/dL Low (12/11/23 09:31:00)\.br\ Creatinine: 0.5 mg/dL (12/13/23::00)\.br\ Hct: 32.9 % Low (12/11/23:31:00)\.br\ BUN/Creat Ratio: 18 (12/13/23:28:00)\.br\ MCV: 105.2 fL High (12/11/23:31:00)\.br\ Sodium Lvl: 134 mmol/L Low (12/13/23:28:00)\.br\ MCH: 36.2 pg High (12/11/23::)\.br\ Potassium Lvl: 4.5 mmol/L (12/13/23::00)\.br\ MCHC: 34.4 gm/dL (12/11/23::00)\.br\ Chloride: 105 mmol/L (12/13/23::00)\.br\ RDW: 15.9 % High (12/11/23:31:00)\.br\ CO2: 26 mmol/L (12/13/23:28:00)\.br\ Platelet: 71 E9/L Low (12/11/23:31:00)\.br\ AGAP: 8 mEq/L (12/13/23:28:00)\.br\ MPV: 8.8 fL (12/11/23:31:00)\.br\ Calcium Lvl: 8 mg/dL Low (12/13/23 07:28:00)\.br\ Allergies\.br\ Definity (Back Pain)\.br\ amoxicillin (Unknown)\.br\ penicillin (unknown)\.br\ Problems\.br\ Ongoing - Any problem that you are currently receiving treatment for.\.br\ Abscess of left leg excluding foot\.br\ Alcohol use disorder in remission\.br\ Anemia\.br\ Cellulitis of leg, right\.br\ Cirrhosis\.br\ Dependent edema\.br\ Elevated blood pressure reading\.br\ Elevated fasting glucose\.br\ Elevated INR\.br\ Elevated liver enzymes\.br\ Esophageal varices\.br\ Headache\.br\ HTN (hypertension)\.b r\ Hypokalemia\.br\ Intractable pain\.br\ Liver cirrhosis, alcoholic\.br\ Megaloblastic anemia\.br\ Nausea\.br\ Portal venous hypertension\.br\ Smokeless tobacco use\.br\ Thrombocytopenia\ .br\ Tobacco user\.br\ Varicose veins of legs\.br\ Venous ulcer of right leg\.br\ Historical - Any problem that you are no longer receiving treatment for.\.br\ Denies\.br\ Heavy alcohol use\.br\ Education Materials\.br\ Drug Allergy\.br\ A drug allergy is when your body reacts in a bad way to a medicine. The reaction may be mild or very bad. In some cases, it can be life-threatening. \.br\ If you have an allergic reaction, get help right away. You should get help even if the reaction seems mild.\.br\ What are the causes?\.br\ This condition is caused by a reaction in your body's defense system. The system sees a medicine as being harmful when it is not.\.br\ What are the signs or symptoms?\.br\ Symptoms of a mild reaction\.br\ ? \.br\ A stuffy nose.\.br\ ? \.br\ Tingling in your mouth.\.br\ ? \.br\ An itchy, red rash.\.br\ Symptoms of a very bad reaction\.br\ ? \.br\ Swelling of your eyes, lips, face, tongue, mouth or back of your throat.\.br\ ? \.br\ Itchy, red, swollen areas of skin.\.br\ ? \.br\ Feeling dizzy or light-headed.\.br \ ? \.br\ Feeling mixed up.\.br\ ? \.br\ Pain in your belly.\.br\ ? \.br\ Trouble with breathing, talking, or swallowing.\.br\ ? \.br\ A tight feeling in your chest.\.br\ ? \.br\ Fast heartbeat.\.br\ ? \.br\ Vomiting or watery poop (diarrhea).\.br\ How is this treated?\.br\ There is no cure for allergies. An allergic reaction can be treated with:\.br\ ? \.br\ Medicines to help your symptoms.\.br\ ? \.br\ Medicines that you breathe into your lungs (respiratory inhalers).\.br\ ? \.br\ A shot for a very bad allergic reaction (epinephrine).\.b r\ For a very bad reaction, you may need to stay in the hospital. Your doctor may teach you how to use an allergy kit and how to give yourself an allergy shot. You can give yourself an allergy shot with what is called an auto-injector pen. \.br\ Follow these instructions at home:\.br\ If you have a very bad allergy:\.br\ \.br\ ? \.br\ Always keep an allergy pen or your kit with you. This could save your life. Use it as told by your doctor.\.br\ ? \.br\ Make sure that you, the people who live with you, and your employer know how to use your allergy pen or kit.\.br\ ? \.br\ If you used your allergy pen or kit:\.br\ ? \.br\ Get more medicine for it right away. This is important in case you have another reaction.\.br\ ? \.br\ Get help right away.\.br\ ? \.br\ Wear a medical alert bracelet or necklace that says you have an allergy, if your doctor tells you to do this.\.br\ General instructions\.br\ ? \.br\ Avoid medicines that you are allergic to.\.br\ ? \.br\ Take uiie-clo-vureeru and prescription medicines only as told by your doctor.\.br\ ? \.br\ If you were given allergy medicines, do not drive until your health care provider tells you it is safe.\.br\ ? \.br\ If you have hives or a rash:\.br\ ? \.br\ Use wybc-znw-scusaec medicines as told by your doctor.\.br\ ? \.br\ Put cold, wet cloths on your skin.\.br\ ? \.br\ Take baths or showers in cool water. Avoid hot water.\.br\ ? \.br\ [facility] Monitor Recordon 12-13-2023 Monitor Record [id number]# 1.00TIFF Normal [facility] Monitor Record [id number]# 1.00TIFF Normal [facility] Monitor Record [id number]# 1.00TIFF Normal [facility] Patient Education - Texton 0 12-13-2023 Patient Education - Text Normal [facility] eGFRon 12-13-2023 eGFR 133 mL/min/1.73 m2 Normal >=59 [facility] Comment on above: Order Comment: Order added by Discern Expert. Performed By: #### 1 [id number] ####[facility] [address] [place] [address] Monitor Recordon 12-12-2023 Monitor Record [id number]# 1.00TIFF Normal [facility] Monitor Record [id number]# 1.00TIFF Normal [facility] Progress Note-Physicianon Progress Note-Physician Normal [facility] Comment on above: Result Comment: Elec tronically Signed By: Rajesh MULTANI, Desi\.br\Date and Time Signed: 12/12/23 12:28 EDT BMPon 12-11-2023 Anion gap [Moles/Vol] 12 mmol/L Normal 6-16 [facility] Comment on above: Performed By: #### 1 [id number] ####[facility] [address] [place] [address] Calcium [Mass/Vol] 8.4 mg/dL Low 8.9-11.1 [facility] Comment on above: Performed By: #### 1 [id number], [id number] ####[facility] [address] [place] [address] Chloride [Moles/Vol] 103 mmol/L Normal 101-111 [facility] Comment on above: Performed By: #### 1 [id number], [id number] ####[facility] [address] [place] [address] CO2 [Moles/Vol] 21 mmol/L Normal 21-31 [facility] Comment on above: Performed By: #### 1 [id number] ####[facility] [address] [place] [address] Creatinine [Mass/Vol] 0.5 mg/dL Normal 0.5-1.3 [facility] Comment on above: Performed By: #### 1 [id number], [id number] ####[address] [place] [address] Glucose [Mass/Vol] 93 mg/dL Normal 55-199 [facility] Comment on above: Performed By: #### 1 [id number], [id number] ####[address] [address] Potassium [Moles/Vol] 4.8 mmol/L Normal 3.5-5.3 [facility] Comment on above: Performed By: #### 1 [id number], [id number] ####[address] [address] Sodium [Moles/Vol] 131 mmol/L Low 135-145 [facility] Comment on above: Performed By: #### 1 [id number], [id number] ####[facility] [address] [place] [address] Urea nitrogen [Mass/Vol] 10 mg/dL Normal 5-21 [facility] Comment on above: Performed By: #### 1 [id number], [id number] ####[facility] [address] [place] [address] Urea nitrogen/Creatinine [Mass ratio] 20 No Units Normal 10-20 [facility] Comment on above: Performed By: #### 1 [id number], [id number] ####[facility] [address] [place] [address] Anion gap [Moles/Vol] 13 mmol/L Normal 6-16 [facility] Comment on above: Order Comment: RN un able to get labs from IV start. Pt insisted on going to the bathroom before labs. Will check on Pt in the meantime, [id number] 12/11/2023 09:22:36 EDT Performed By: #### 1 [id number], [id number], [id number] ####[facility] [address] [place] [address] Calcium [Mass/Vol] 8.8 mg/dL Low 8.9-11.1 [facility] Comment on above: Order Comment: RN un able to get labs from IV start. Pt insisted on going to the bathroom before labs. Will check on Pt in the meantime, [id number] 12/11/2023 09:22:36 EDT Performed By: #### 1 [id number], [id number], [id number] ####[facility] [address] [place] [address] Chloride [Moles/Vol] 101 mmol/L Normal 101-111 [facility] Comment on above: Order Comment: RN un able to get labs from IV start. Pt insisted on going to the bathroom before labs. Will check on Pt in the meantime, [id number] 12/11/2023 09:22:36 EDT Performed By: #### 1 [id number], [id number], [id number] ####[facility] [address] [place] [address] CO2 [Moles/Vol] 21 mmol/L Normal 21-31 [facility] Comment on above: Order Comment: RN un able to get labs from IV start. Pt insisted on going to the bathroom before labs. Will check on Pt in the meantime, [id number] 12/11/2023 09:22:36 EDT Performed By: #### 1 [id number], [id number], [id number] ####[facility] [address] [place] [address] Creatinine [Mass/Vol] 0.5 mg/dL Normal 0.5-1.3 [facility] Comment on above: Order Comment: RN un able to get labs from IV start. Pt insisted on going to the bathroom before labs. Will check on Pt in the meantime, [id number] 12/11/2023 09:22:36 EDT Performed By: #### 1 [id number], [id number], [id number] ####[facility] [address] [place] [address] Glucose [Mass/Vol] 93 mg/dL Normal 55-199 [facility] Comment on above: Order Comment: RN un able to get labs from IV start. Pt insisted on going to the bathroom before labs. Will check on Pt in the meantime, [id number] 12/11/2023 09:22:36 EDT Performed By: #### 1 [id number], [id number], 5073724 ####[facility] [address] [place] [address] Potassium [Moles/Vol] 4.1 mmol/L Normal 3.5-5.3 [facility] Comment on above: Order Comment: RN un able to get labs from IV start. Pt insisted on going to the bathroom before labs. Will check on Pt in the meantime, [id number] 12/11/2023 09:22:36 EDT Performed By: #### 1 [id number], [id number], 6808561 ####[facility] [address] [place] [address] Sodium [Moles/Vol] 131 mmol/L Low 135-145 [facility] Comment on above: Order Comment: RN un able to get labs from IV start. Pt insisted on going to the bathroom before labs. Will check on Pt in the meantime, [id number] 12/11/2023 09:22:36 EDT Performed By: #### 1 [id number], 7308514, 0932013 ####[facility] [address] [facility] [place] [address] Urea nitrogen [Mass/Vol] 8 mg/dL Normal 5-21 [facility] Comment on above: Order Comment: RN un able to get labs from IV start. Pt insisted on going to the bathroom before labs. 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 Pt insisted on going to the bathroom before labs. 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 Pt insisted on going to the bathroom before labs. 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 Pt insisted on going to the bathroom before labs. 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 Pt insisted on going to the bathroom before labs. 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 Pt insisted on going to the bathroom before labs. 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 Pt insisted on going to the bathroom before labs. 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 Pt insisted on going to the bathroom before labs. 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 Pt insisted on going to the bathroom before labs. 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 Pt insisted on going to the bathroom before labs. 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 Pt insisted on going to the bathroom before labs. 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 Pt insisted on going to the bathroom before labs. 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 Pt insisted on going to the bathroom before labs. 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 Pt insisted on going to the bathroom before labs. 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 Pt insisted on going to the bathroom before labs. 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 Pt insisted on going to the bathroom before labs. 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 Pt insisted on going to the bathroom before labs. Will check on Pt in the meantime, [facility] 12/11/2023 09:22:36 EDT Performed By: #### 1 [id number], [id number], 6273207 ####[facility] [address] [place] [address] Platelet 71.0 E9/L Low 150.0-500.0 [facility] Comment on above: Order Comment: RN un able to get labs from IV start. Pt insisted on going to the bathroom before labs. Will check on Pt in the meantime, [id number] 12/11/2023 09:22:36 EDT Performed By: #### 1 [id number], [id number], 4888232 ####[facility] [address] [place] [address] Platelet mean volume (Bld) [Entitic vol] 8.8 fL Normal 6.4-10.8 [facility] Comment on above: Order Comment: RN un able to get labs from IV start. Pt insisted on going to the bathroom before labs. Will check on Pt in the meantime, [facility] 12/11/2023 09:22:36 EDT Performed By: #### 1 [id number], [id number], 0135472 ####[facility] [address] [place] [address] RBC (Bld) [#/Vol] 3.1 E12/L Low 4.3-5.9 [facility] Comment on above: Order Comment: RN un able to get labs from IV start. Pt insisted on going to the bathroom before labs. Will check on Pt in the meantime, [id number] 12/11/2023 09:22:36 EDT Performed By: #### 1 [id number], 1076961, [id number] ####[facility] [address] [place] [address] WBC corrected for nucl RBC Auto (Bld) [#/Vol] 5.3 E9/L Normal 4.0-11.0 [facility] Comment on above: Order Comment: RN un able to get labs from IV start. Pt insisted on going to the bathroom before labs. Will check on Pt in the meantime, [facility] 12/11/2023 09:22:36 EDT Performed By: #### 1 [id number], [id number], 1432845 ####[facility] [id number] CHEMISTRYOrdered By: SYSTEM SYSTEM on 12-11-2023 Anion gap [Moles/Vol] 12 mmol/L Normal 6 - 16 mEq/L Remisol Chem Calcium [Mass/Vol] 8.4 mg/dL Low 8.9 - 11.1 mg/dL Rem[facility] Chem Chloride [Moles/Vol] 103 mmol/L Normal 101 - 111 mmol/ L [facility] Chem CO2 [Moles/Vol] 21 mmol/L Normal 21 - 31 mmol/L Remis ol Chem Creatinine [Mass/Vol] 0.5 mg/dL Normal 0.5 - 1.3 mg/dL [facility] Chem eGFR 133 mL/min/1.73 m2 Normal >=59mL/mi n/1.73 m2 Rem[facility] Chem Glucose [Mass/Vol] 93 mg/dL Normal 55 - 199 mg/dL Re misol Chem Potassium [Moles/Vol] 4.8 mmol/L Normal 3.5 - 5.3 mmol/L [facility] Chem Sodium [Moles/Vol] 131 mmol/L Low 135 - 145 mmol/L Rem[facility] Chem Urea nitrogen [Mass/Vol] 10 mg/dL Normal 5 - 21 mg/dL [facility] Urea nitrogen/Creatinine [Mass ratio] 20 mg/mg Normal 10 - 20 [facility] Anion gap [Moles/Vol] 13 mmol/L Normal 6 - 16 mEq/L [facility] Chem Calcium [Mass/Vol] 8.8 mg/dL Low 8.9 - 11.1 mg/dL Rem[facility] Chem Chloride [Moles/Vol] 101 mmol/L Normal 101 - 111 mmol/ L [facility] Chem CO2 [Moles/Vol] 21 mmol/L Normal 21 - 31 mmol/L Remis ol Chem Creatinine [Mass/Vol] 0.5 mg/dL Normal 0.5 - 1.3 mg/dL Remisol Chem eGFR 133 mL/min/1.73 m2 Normal >=59mL/mi n/1.73 m2 Remisol Chem Glucose [Mass/Vol] 93 mg/dL Normal 55 - 199 mg/dL Re misol Chem Potassium [Moles/Vol] 4.1 mmol/L Normal 3.5 - 5.3 mmol/L Rem[facility] Chem Sodium [Moles/Vol] 131 mmol/L Low 135 - 145 mmol/L Rem[facility] Chem Urea nitrogen [Mass/Vol] 8 mg/dL Normal 5 - 21 mg/dL [facility] Chem Urea nitrogen/Creatinine [Mass ratio] 16 mg/mg Normal 10 - [address] Abdomen/Pelvis w/o Contra ston 12-11-2023 CT Abdomen/Pelvis w/o Contrast Normal [facility] Consent for Treatmenton Consent for Treatment [id number]# 1.00TIFF Normal [facility] Consent for Treatment [id number]#1 .00TIFF Normal [facility] Discharge Note-Nursingon Discharge Note-Nursing Normal [facility] ED Clinical Summaryon 2023 ED Clinical Summary Normal [facility] ED Note-Physicianon 12-11-19 ED Note-Physician Normal [facility] Comment on above: Result Comment: Elec tronically Signed By: Brent Sanches DO\.br\Date and Time Signed: 12/11/23 13:30 EDT ED Patient Education Noteon 12-11-2023 ED Patient Education Note Normal [facility] ED Patient Summaryon 024 ED Patient Summary Normal [facility] Echo Transthoracic Completeo n 12-11-2023 Echo Transthoracic Complete Normal [facility] HEMATOLOGYOrdered By: SYSTEM SYSTEM on 12-11-2023 Basophils/100 WBC (Bld) 0.3 % Normal 0.0 - 2.0 % Rem[facility] Heme Basophils/Leukocytes Auto (Bld) [Pure # fraction] 0.0 E9/L Normal 0.0 - 0.2 E9/L [facility] Eosinophils (Bld) [#/Vol] 0.2 E9/L Normal 0.0 - 0.5 E9/L [facility] Eosinophils/100 WBC (Bld) 2.8 % Normal 0.0 - 8.0 % [facility] Erythrocyte distribution width (RBC) [Ratio] 15.9 % High 10.9 - 14.2 % [facility] Hematocrit (Bld) [Volume fraction] 32.9 % Low 37.7 - 49.0 % [facility] Hemoglobin (Bld) [Mass/Vol] 11.3 g/dL Low 13.5 - 17.5 gm/dL [facility] Lymphocytes (Bld) [#/Vol] 0.9 E9/L Low 1.0 - 4.0 E9/L [facility] Lymphocytes/100 WBC (Bld) 17.1 % Normal 14.0 - 50.0 % [facility] MCH (RBC) [Entitic mass] 36.2 pg High 27.0 - 34.0 pg [facility]e MCHC (RBC) [Mass/Vol] 34.4 g/dL Normal 31.4 - 36.0 gm/dL [facility] MCV (RBC) [Entitic vol] 105.2 fL High 80.0 - 100.0 fL [facility] Monocytes (Bld) [#/Vol] 0.6 E9/L Normal 0.2 - 1.0 E9/L [facility] Monocytes/100 WBC (Bld) 10.9 % Normal 4.0 - 14.0 % [facility] Neutrophils (Bld) [#/Vol] 3.6 E9/L Normal 2.0 - 7.5 E9/L [facility] Neutrophils/100 WBC (Bld) 68.9 % Normal 36.0 - 75.0 % [facility] Platelet 71.0 E9/L Low 150.0 - 500.0 E9/L [facility] Platelet mean volume (Bld) [Entitic vol] 8.8 fL Normal 6.4 - 10.8 fL [facility]e RBC (Bld) [#/Vol] 3.1 E12/L Low 4.3 - 5.9 E12/L Re misol Heme WBC corrected for nucl RBC Auto (Bld) [#/Vol] 5.3 E9/L Normal 4.0 - 11.0 E9/L [facility]e Interdisciplinary Note - Dwain e Manageron 12-11-2023 Interdisciplinary Note - Certified Coatings Inspector Normal [facility] Comment on above: Result Comment: Elec tronically Signed By: Lakhwinder RN, Rosie\.br\Date and Time Signed: 12/11/23 14:55 EDT Monitor Recordon 12-11-2023 Monitor Record [id number]# 1.00TIFF Normal [facility] UA with Cult Rflxon 12-11-19 Color (U) Yellow Normal Yellow [facility] Comment on above: Result Comment: Micr oscopic readings are only performed on those samples that meet specific criteria set forth by [facility]. Performed By: #### 4 [id number] ####[facility] [address] [place] [address] Glucose (U) [Mass/Vol] Negative Normal Negative [facility] Comment on above: Performed By: #### 4 [id number] ####[address] [address] Ketones Ql (U) Negative Normal Negative [facility] Comment on above: Performed By: #### 4 [id number] ####[facility] [address] [place] [address] UA Blood Negative Normal Negative [facility] Comment on above: Performed By: #### 4 [id number] ####[facility] [address] [place] [address] UA Clarity Clear Normal Clear [facility] Comment on above: Performed By: #### 4 [id number] ####[facility] [address] [place] [address] UA Leuk Est Negative Normal Negative [facility] Comment on above: Performed By: #### 4 [id number] ####[facility] [address] [facility] [place] [address] UA Nitrite Negative Normal Negative [facility] Comment on above: Performed By: #### 4 [id number] ####[facility] [address] [place] [address] UA pH 7.0 Invalid Interpretation Code 5.0-9.0 [facility] Comment on above: Performed By: #### 4 [id number] ####[facility] [address] [place] [address] UA Protein Negative Normal Negative [facility] Comment on above: Performed By: #### 4 [id number] ####[facility] [address] [place] [address] UA Spec Grav 1.007 Invalid Interpretation Code 1.005-1.030 [facility] Comment on above: Performed By: #### 4 [id number] ####[facility] [address] [place] [address] UA Urobilinogen 2 mg/dL Abnormal Negative [facility] Comment on above: Performed By: #### 4 [id number] ####[facility] [address] [place] [address] Urobilinogen (U) [Mass/Vol] Negative Normal Negative [facility] Comment on above: Performed By: #### 4 [id number] ####[facility] [address] [place] [address] UA Spec Desc Clean Catch Normal [facility] Comment on above: Performed By: #### 4 [id number] ####[facility] [address] [place] [address] URINALYSISOrdered By: SYSTEM SYSTEM on 12-11-2023 Color (U) Yellow 1 (12/11/23 9:36 AM) Normal Yellow [facility] UA Auto SS Comment on above: Interpretive Data: M icroscopic readings are only performed on those samples that meet specific criteria set forth by [facility] Laboratory. Glucose (U) [Mass/Vol] Negative Normal Negativemg/dL FT UA Auto SS Ketones Ql (U) Negative Normal Negativemg/dL FT UA Auto SS UA Blood Negative Normal Negativemg/dL [facility] UA Aut o SS UA Clarity Clear (12/11/23 9:36 AM) Normal Clear [facility] UA Auto SS UA Leuk Est Negative Normal NegativeLeu/uL [facility] UA A uto SS UA Nitrite Negative Normal Negativemg/dL FT UA Aut o SS UA pH 7.0 *NA* (12/11/23 9:36 AM) Invalid Interpretation Code 5.0 - 9.0 FT UA Auto SS UA Protein Negative Normal Negativemg/dL [facility] UA Aut o SS UA Spec Grav 1.007 *NA* (12/11/23 9:36 AM) Invalid Interpretation Code 1.005 - 1.030 [facility] UA Auto SS UA Urobilinogen 2 mg/dL mg/dL Invalid Interpretation Code Negativemg/dL [facility] UA Auto SS Urobilinogen (U) [Mass/Vol] Negative Normal Negativemg/dL [facility] UA Auto SS URINALYSISOrdered By: Brent Sanches on 12-11-2023 UA Spec Desc Clean Catch (12/11/23 9:36 AM) Normal [facility] UA Auto SS Work Phone: eGFRon 12-11-2023 eGFR 133 mL/min/1.73 m2 Normal >=59 [facility] Comment on above: Order Comment: Order added by Discern Expert. Performed By: #### 1 [id number] ####[facility] [address] [place] [address] eGFR 133 mL/min/1.73 m2 Normal >=59 [facility] Comment on above: Order Comment: Order added by Discern Expert. Performed By: #### 1 [id number] ####[facility] [address] [place] [address] Reminderson 11-19-2023 Reminders - From: Thai Michel To: REPLACED BY [facility] - Reminders/Recalls; Sent: 11/19/2023 12:35:14 EDT Show up: 10/08/2024 12:35:00 EST Subject: Ambulatory Reminder Due Date/Time: 11/10/2024 12:35:00 EST Reminder/Recall Repeat EGD in 1 year(11/2024) Normal [facility] IntraOperative Documentson 0 11-18-2023 IntraOperative Documents [id number]# 1.00TIFF [facility] Progress Note-Physicianon Progress Note-Physician Normal [facility] Comment on above: Result Comment: Elec tronically Signed By: MD Holland, Desi Ball\.br\Date and Time Signed: 11/17/23 09:21 EDT Progress Note-Physician Normal [facility] Comment on above: Result Comment: Elec tronically Signed By: MD Holland, Desi Ball\.br\Date and Time Signed: 11/17/23 09:22 EDT Postoperative Documentson Postoperative Documents [id number]# 1.00TIFF [facility] Main OR Intraoperative Recor don 11-13-2023 Main OR Intraoperative Record Normal [facility] Progress Note-Physicianon Progress Note-Physician Normal [facility] Comment on above: Result Comment: Elec tronically Signed By: Josiane Vasquez Jr, DO\.br\Date and Time Signed: 11/13/23 13:53 EST Consenton 11-12-2023 Consent [id number]# 1.00TIFF [facility] Discharge Instructionson Discharge Instructions [id number]# 1.00TIFF [facility] Consent for Treatmenton Consent for Treatment [id number]#1 .00TIFF [facility] Discharge Instructionson Discharge Instructions [facility] Comment on above: Result Comment: Elec tronically Signed By: Yolie Santamaria RN\.br\Date and Time Signed: 11/11/23 16:49 EST Endoscopic Procedure Report - Otheron 11-11-2023 Endoscopic Procedure Report - Other [facility] Comment on above: Result Comment: Elec tronically Signed By: Nathan MULTANI, Mario Xiong\.br\Date and Time Signed: 11/11/23 16:24 EST Other Comment: Yuli bright Attachment - attachment storage system not supported [id number] Can be viewed in source systemMissing Attachment - attachment storage system not supported [id number] Can be viewed in source systemMissing Attachment - attachment storage system not supported [id number] Can be viewed in source systemMissing Attachment - attachment storage system not supported [id number] Can be viewed in source systemMissing Attachment - attachment storage system not supported [id number] Can be viewed in source systemMissing Attachment - attachment storage system not supported [id number] Can be viewed in source system Inpatient Patient Summaryon 11-11-2023 Inpatient Patient Summary Normal [facility] Main OR PACU I Recordon 03 Main OR PACU I Record Normal [facility] Main OR Preoperative Recordo n 11-11-2023 Main OR Preoperative Record Normal [facility] Monitor Recordon 11-11-2023 Monitor Record [id number]# 1.00TIFF Normal [facility] Monitor Record [id number]# 1.00TIFF Normal [facility] Outpatient Surgery Discharge Instructionon 11-11-2023 Outpatient Surgery Discharge Instruction Normal [facility] Patient Education - Texton 0 11-11-2023 Patient Education - Text Normal [facility] Physician Orderon 10-29-2023 Physician Order [id number]#1 .00TIFF Normal [facility] Ambulatory Visit Summaryon 0 10-28-2023 Ambulatory Visit Summary Invalid Interpretation Code Thrombocytopenia, Print Label By Order Location\.br\ Comprehensive Metabolic Panel, Blood, Routine collect, 10/28/23, Order for future visit, Lab Collect, HTN (hypertension) [facility] Family Medicine Office/Clini c Noteon 10-28-2023 Family Medicine Office/Clinic Note Normal [facility] Comment on above: Result Comment: Elec tronically Signed By: Lisa Padilla\.br\Date and Time Signed: 10/28/23 15:39 EST Medication Consenton 024 Medication Consent [id number]#1 .00TIFF Normal [facility] Patient Educationon 10-28-19 Patient Education Normal [facility] Consent for Procedure/Surger yon 10-12-2023 Consent for Procedure/Surgery [id number]# 1.00TIFF Normal [facility] ED Note-Physicianon 10-11-19 24 ED Note-Physician [id number]#1 .00TIFF Normal [facility] Ambulatory Visit Summaryon 0 10-08-2023 Ambulatory Visit Summary Invalid Interpretation Code Portal venous hypertension [facility] Family Medicine Office/Clini c Noteon 10-08-2023 Family Medicine Office/Clinic Note Normal [facility] Comment on above: Result Comment: Elec tronically Signed By: Lisa Padilla.br\Date and Time Signed: 10/08/23 11:59 EST Physician Referralon 024 Physician Referral [id number] #1.00TIFF Normal [facility] IntraOperative Documentson 0 10-07-2023 IntraOperative Documents [id number]#1. 00TIFF Normal [facility] Main OR Intraoperative Recor don 10-02-2023 Main OR Intraoperative Record Normal [facility] Consenton 10-01-2023 Consent [id number]#1 .00TIFF [facility] Discharge Instructionson Discharge Instructions [id number]#1 .00TIFF Normal [facility] Postoperative Documentson Postoperative Documents [id number]#1 .00TIFF [facility] Progress Noteson 10-01-2023 Hospital Monitor Authentication Interface Message Text Hematology AND Oncology Clinic Note Reason for Consult: Hemolytic anemia Alcoholic cirrhosis Thrombocytopenia Long-term steroid use Referring Provider: Afua Umanzor MD No chief complaint on file. History of Present Illness Will Ralph is a 38 year old male with [...] B27 positive) 2003 Followed with Rheum at [facility] Open fracture of other and unspecified [...] 120 min Stress: Stress Concern Present (02/27/2023) [employer] - Occupational Stress Questionnaire Feeling of Stress : Very much Social Connections: Socially Isolated (02/27/2023) Social Connection and Isolation Panel [NHANES] Frequency of Communication with Friends and Family: More than three times a week Frequency of Social Gatherings with Friends and Family: Patient refused Attends Islam Services: Never Active Member of Clubs or [...] tab (more content not included)... Normal [employer] Consent for Treatmenton 09-08 Consent for Treatment [id number]#1 .00TIFF Normal [facility] Discharge Instructionson Discharge Instructions Normal [address] [place] [address]- \.br\ New Follow Up Appointments after Discharge\.br\ Follow Up with Nathan MULTANI, Mario Xiong [facility] When: \.br\ Comments:\.br\ office will call for follow up\.br\ Where:\.br\ [address], [address] [facility] [address]\.br\ [place] [address].br\ [phone]\.br\ Medications\.br\ What How Much When Why Instructions Next Dose\.br\ New ondansetron (Zofran ODT 4 mg Tab-Dis) 1 Tablets By Mouth Every 8 hours as needed for Nausea/Vomiting Refills: 12 Pickup at [facility] #[id number]\.br\ Unchanged folic acid (folic acid 1 mg [...] Misc Prescription (Misc DME Prescription) See instructions [place] SAP Dressing 4 x 4 dressing \.br\ [...] a day\.br\ Unchanged potassium chloride (Potassium Chloride (Iqs-Krfk-Bki M20) 20 mEq oral tablet, extended release) 1 Tablets By Mouth 2 times a day\.br\ Unchanged spironolactone (spironolactone 50 mg Tab) 1 Tablets By Mouth Every day\.br\ Unchanged sulfamethoxazole- trimethoprim (Bactrim) By Mouth taskes 3 times a week \.br\ Pharmacy Information\.br\ [id number]: [address] [place], [place] [phone]\.br\ Test Results\.br\ No qualifying data available.\.br\ Allergies\.br\ [...] are safe for you.\.br\ ? \.br\ Take ggkg-bmo-zhwxwwc and prescription medicines only as told by [...] provider.\.br\ Document Revised: 12/03/2022 Document Reviewed: 12/03/2022 Elsevier Patient Education ? 2022 [employer].br\ Esophageal Varices\.br\ \.br\ Esophageal varices are [...] flexible tube with a small camera o [facility] Comment on above: Result Comment: Elec tronically Signed By: Jaylene Villasenor RN\.br\Date and Time Signed: 09/30/23 11:01 EST Discharge Instructions Normal [address], [place] [address]- \.br\ New Follow Up Appointments after Discharge\.br\ Follow Up with Nathan MULTANI, Mario Xiong, [facility], [facility] When: \.br\ Comments:\.br\ office will call for follow up\.br\ Where:\.br\ [address], [address] [facility] [address]\.br\ [place] [address].br\ [phone]\.br\ Medications\.br\ What How Much When Why Instructions Next Dose\.br\ New ondansetron (Zofran ODT 4 mg Tab-Dis) 1 Tablets By Mouth Every 8 hours as needed for Nausea/Vomiting Refills: 12 Pickup at [facility] #[id number]\.br\ Unchanged folic acid (folic acid 1 mg [...] Misc Prescription (Misc DME Prescription) See instructions [place] SAP Dressing 4 x 4 dressing \.br\ [...] a day\.br\ Unchanged potassium chloride (Potassium Chloride (Nrc-Plvr-Snb M20) 20 mEq oral tablet, extended release) 1 Tablets By Mouth 2 times a day\.br\ Unchanged spironolactone (spironolactone 50 mg Tab) 1 Tablets By Mouth Every day\.br\ Unchanged sulfamethoxazole- trimethoprim (Bactrim) By Mouth taskes 3 times a week \.br\ Pharmacy Information\.br\ [id number]: [address] [place], [place] [phone]\.br\ Test Results\.br\ No qualifying data available.\.br\ Allergies\.br\ [...] are safe for you.\.br\ ? \.br\ Take jfmg-ehu-kmwfdlf and prescription medicines only as told by [...] provider.\.br\ Document Revised: 12/03/2022 Document Reviewed: 12/03/2022 [employer] Patient Education ? 2022 [employer].br\ Esophageal Varices\.br\ \.br\ Esophageal varices are [...] flexible tube with a small camera o [facility] Comment on above: Result Comment: Elec tronically Signed By: Jaylene Villasenor RN\.br\Date and Time Signed: 09/30/23 10:59 EST Discharge Instructions Normal [address], [place] [address]- \.br\ New Follow Up Appointments after Discharge\.br\ Follow Up with Nathan MULTANI, JOE [place], [facility] When: \.br\ Comments:\.br\ office will call for follow up\.br\ Where:\.br\ [address], [address] [facility] [address]\.br\ [place] [address].br\ [phone]\.br\ Medications\.br\ What How Much When Why Instructions Next Dose\.br\ New ondansetron (Zofran ODT 4 mg Tab-Dis) 1 Tablets By Mouth Every 8 hours as needed for Nausea/Vomiting Refills: 12 Pickup at [facility] #[id number]\.br\ Unchanged folic acid (folic acid 1 mg [...] Misc Prescription (Misc DME Prescription) See instructions [place] SAP Dressing 4 x 4 dressing \.br\ [...] a day\.br\ Unchanged potassium chloride (Potassium Chloride (Cjk-Kzxj-Rke M20) 20 mEq oral tablet, extended release) 1 Tablets By Mouth 2 times a day\.br\ Unchanged spironolactone (spironolactone 50 mg Tab) 1 Tablets By Mouth Every day\.br\ Unchanged sulfamethoxazole- trimethoprim (Bactrim) By Mouth taskes 3 times a week \.br\ Pharmacy Information\.br\ [id number]: [address] [place], [place] [phone]\.br\ Test Results\.br\ No qualifying data available.\.br\ Allergies\.br\ [...] are safe for you.\.br\ ? \.br\ Take kmgj-mer-gvewusp and prescription medicines only as told by [...] provider.\.br\ Document Revised: 12/03/2022 Document Reviewed: 12/03/2022 [employer] Patient Education ? 2022 [employer].br\ Esophageal Varices\.br\ \.br\ Esophageal varices are [...] flexible tube with a small camera o [facility] Comment on above: Result Comment: Elec tronically Signed By: Jaylene Villasenor RN\.br\Date and Time Signed: 09/30/23 10:38 EST Endoscopic Procedure Report - Otheron 09-30-2023 Endoscopic Procedure Report - Other [facility] Comment on above: Result Comment: Elec tronically Signed By: Mario Evans MD\.br\Date and Time Signed: 09/30/23 10:18 EST Inpatient Patient Summaryon 09-30-2023 Inpatient Patient Summary Normal [facility] Main OR PACU I Recordon 09-08 Main OR PACU I Record [facility] Main OR Preoperative Recordo n 09-30-2023 Main OR Preoperative Record Normal [facility] Monitor Recordon 09-30-2023 Monitor Record [id number]# 1.00TIFF Normal [facility] Monitor Record [id number]# 1.00TIFF [facility] Outpatient Surgery Discharge Instructionon 09-30-2023 Outpatient Surgery Discharge Instruction [facility] Patient Education - Texton 0 09-30-2023 Patient Education - Text [facility] Progress Note-Physicianon Progress Note-Physician [facility] Comment on above: Result Comment: Elec tronically Signed By: Petar Steiner DO.br\Date and Time Signed: 09/30/23 10:40 EST Progress Note-Physician [facility] Comment on above: Result Comment: Elec tronically Signed By: Petar Steiner DO.br\Date and Time Signed: 09/30/23 10:32 EST Progress Note-Physician Normal [facility] Comment on above: Result Comment: Elec tronically Signed By: Petar Steiner DO.br\Date and Time Signed: 09/30/23 09:23 EST Consent for Procedure/Surger yon 09-23-2023 Consent for Procedure/Surgery [id number] #1.00TIFF Normal [facility] Ambulatory Visit Summaryon 0 09-21-2023 Ambulatory Visit Summary Normal [facility] Family Medicine Office/Clini c Noteon 09-21-2023 Family Medicine Office/Clinic Note Normal [facility] Comment on above: Result Comment: Elec tronically Signed By: Keith Patricia PA-C.br\Date and Time Signed: 09/21/23 21:05 EST Transfer Inon 09-09-2023 Transfer In [id number]#1 .00TIFF Normal [facility] US Liveron 09-05-2023 US Liver Normal [facility] Consent for Procedure/Surger yon 09-03-2023 Consent for Procedure/Surgery [id number]# 1.00TIFF Normal [facility] Consent for Treatmenton - Consent for Treatment [id number]#1 .00TIFF [facility] Ambulatory Visit Summaryon 1 11-02-2022 Ambulatory Visit Summary Normal [facility] Family Medicine Office/Clini c Noteon 08-28-2023 Family Medicine Office/Clinic Note Normal [facility] Comment on above: Result Comment: Elec tronically Signed By: Lisa Padilla\.br\Date and Time Signed: 08/28/23 19:38 EST\.br\Electronically Co-Signed By: Amy Denis\.br\Date and Time Co-Signed: 08/26/23 18:37 EST Patient Educationon 08-26-20 23 Patient Education Normal [facility] Operative Reporton Operative Report [id number]#1 .00TIFF [facility] Nursing Assessment - Woundon 08-14-2023 Nursing Assessment - Wound [id number]# 1.00TIFF [facility] Multi-Wound Charton 08-10-20 Multi-Wound Chart [id number]# 2.00TIFF [facility] Nursing Assessment - Woundon 08-10-2023 Nursing Assessment - Wound [id number]# 1.00TIFF [facility] Nursing Note - Woundon 08-10 Nursing Note - Wound [id number]# 1.00TIFF [facility] Physician Orderon 08-10-2023 Physician Order [id number]# 1.00TIFF [facility] Physician Order [id number]# 1.00TIFF [facility] Procedure - Woundon 08-10-20 Procedure - Wound [id number]# 1.00TIFF [facility] Progress Note - Woundon Progress Note - Wound [id number]# 1.00TIFF [facility] Consent for Treatmenton 07-10 Consent for Treatment [id number]#1 .00TIFF [facility] Transfer Inon 08-06-2023 Transfer In [id number]#1 .00TIFF [facility] Transfer In [id number]#1 .00TIFF [facility] Transfer In [id number]#1. 00TIFF [facility] Consent for Treatmenton 2 Consent for Treatment [id number]#1 .00TIFF Normal [facility] Ambulatory Visit Summaryon 1 09-26-2022 Ambulatory Visit Summary Invalid Interpretation Code Thrombocytopenia [facility] Physician Orderon 07-27-2023 Physician Order [id number]#1 .00TIFF Normal [facility] Ambulatory Visit Summaryon 1 09-23-2022 Ambulatory Visit Summary Normal [facility] Auth for Release of Medical Recordson 07-24-2023 Auth for Release of Medical Records [id number]#1. 00TIFF [facility] Auth for Release of Medical Records [id number]#1 .00TIFF [facility] Auth for Release of Medical Records [id number]#1. 00TIFF Normal [facility] CHEMISTRYOrdered By: Huber Jha on 07-24-2023 Albumin DL <= 20 mg/L (U) [Mass/Vol] microgram/mL Normal 0.0 - 19.0 mcg/mL [facility] Albumin Elph (U) [Mass fraction] mg/dL Invalid Interpretation Code [facility] Comment on above: Interpretive Data: T he reference range and other method performance specifications have not been established for this test; results should be integrated into the clinical context for interpretation. Creatinine (U) [Mass/Vol] 22.5 mg/dL Invalid Interpretation Code [facility] Comment on above: Interpretive Data: T he reference range and other method performance specifications have not been established for this test; results should be integrated into the clinical context for interpretation. U Prot/Creat Ratio [facility] Invalid Interpretation Code 0.00 - 200.00 [facility] Remisol Family Medicine Office/Clini c Noteon 07-24-2023 Family Medicine Office/Clinic Note Normal [facility] Comment on above: Result Comment: Elec tronically Signed By: Lisa Padilla\Date and Time Signed: 07/24/23 09:18 EST Medication Consenton 023 Medication Consent [id number]#1 .00TIFF Normal [facility] Patient Educationon 07-24-20 23 Patient Education Normal [facility] Physician Referralon 023 Physician Referral [id number]#1 .00TIFF Normal [facility] U Microalbon 07-24-2023 Albumin DL <= 20 mg/L (U) [Mass/Vol] mg/dL Normal 0.0-19.0 [facility] Comment on above: Performed By: #### 1 [id number], [id number] ####[facility] [address] [place] [address] U Protein/Creat Ratioon 07-08 Creatinine (U) [Mass/Vol] 22.5 mg/dL Invalid Interpretation Code [facility] Comment on above: Result Comment: The reference range and other method performance specifications have not been established for this test; results should be integrated into the clinical context for interpretation. Performed By: #### 1 [id number], [id number] ####[facility] [address] [place] [address] U Prot/Creat Ratio [facility] Invalid Interpretation Code .00-200.00 [facility] Comment on above: Performed By: #### 1 [id number], [id number] ####[facility] [address] [place] [address] Albumin Elph (U) [Mass fraction] <6.0 Invalid Interpretation Code [facility] Comment on above: Result Comment: The reference range and other method performance specifications have not been established for this test; results should be integrated into the clinical context for interpretation. Performed By: #### 1 [id number], [id number] ####[facility] [address] [place] [address] Consent for Treatmenton 07-08 Consent for Treatment [id number]#1 .00TIFF [facility] Multi-Wound Charton 07-23-20 Multi-Wound Chart [id number] 1 [id number]# 1.00TIFF [facility] Nursing Assessment - Woundon 07-23-2023 Nursing Assessment - Wound [id number]# 1.00TIFF [facility] Nursing Note - Woundon 07-23 Nursing Note - Wound [id number] 11 [id number]# 1.00TIFF [facility] Physician Orderon 07-23-2023 Physician Order [id number] 1 [id number]# 1.00TIFF [facility] Procedure - Woundon 07-23-20 Procedure - Wound [id number] 1 [id number]# 1.00TIFF [facility] Progress Note - Woundon 07-08 Progress Note - Wound [id number]# 1.00TIFF [facility] Nursing Assessment - Woundon 07-20-2023 Nursing Assessment - Wound [id number]# 2.00TIFF [facility] Nursing Note - Woundon 07-20 Nursing Note - Wound [id number] 11 [id number]# 2.00TIFF [facility] Progress Note - Woundon 07-08 Progress Note - Wound [id number]# 3.00TIFF [facility] Physician Orderon 07-17-2023 Physician Order [id number] 1 [id number]# 1.00TIFF [facility] Procedure - Woundon 07-17-20 Procedure - Wound [id number] 1 [id number]# 1.00TIFF [facility] Consent for Procedure/Surger yon 07-16-2023 Consent for Procedure/Surgery [id number]#1 .00TIFF [facility] Consent for Treatmenton Consent for Treatment [id number]#1 .00TIFF [facility] Multi-Wound Charton 07-16-20 Multi-Wound Chart [id number] 1 [id number]# 1.00TIFF [facility] Prescriptions/Work Noteson 09-15-2022 Prescriptions/Work Notes [id number]#1 .00TIFF [facility] Nursing Note - Woundon 07-03 Nursing Note - Wound [id number] 10 [id number]# 1.00TIFF [facility] Consent for Treatmenton 06-07 Consent for Treatment [id number]#1 .00TIFF [facility] Multi-Wound Charton 06-25-20 Multi-Wound Chart [id number] 0 [id number]# 1.00TIFF [facility] Nursing Assessment - Woundon 06-25-2023 Nursing Assessment - Wound [id number]# 1.00TIFF [facility] Nursing Note - Woundon 06-25 Nursing Note - Wound [id number] 10 [id number]# 1.00TIFF [facility] Physician Orderon 06-25-2023 Physician Order [id number] 0 [id number]# 1.00TIFF [facility] Procedure - Woundon 06-25-20 Procedure - Wound [id number] 0 [id number]# 1.00TIFF [facility] Progress Note - Woundon 06-07 Progress Note - Wound [id number]# 1.00TIFF [facility] ED Note-Physicianon 06-20-20 ED Note-Physician [facility] Comment on above: Result Comment: Elec tronically Signed By: Xander Anne PA-C\.br\Date and Time Signed: 06/19/23 13:22 EDT\.br\Electronically Co-Signed By: Tedyd Luna DO\.br\Date and Time Co-Signed: 06/20/23 07:44 EDT Consent for Treatmenton 06-07 Consent for Treatment [id number]#1 .00TIFF [facility] Discharge Instructionson Discharge Instructions [id number]# 1.00TIFF [facility] ED Clinical Summaryon 2022 ED Clinical Summary [facility] ED Patient Education Noteon 06-19-2023 ED Patient Education Note [facility] ED Patient Summaryon 023 ED Patient Summary [facility] Consent for Procedure/Surger yon 06-18-2023 Consent for Procedure/Surgery [id number] #1.00TIFF [facility] Consent for Treatmenton 06-07 Consent for Treatment [id number]#1 .00TIFF [facility] Multi-Wound Charton 06-18-20 Multi-Wound Chart [id number] 0 [id number]# 1.00TIFF [facility] Nursing Assessment - Woundon 06-18-2023 Nursing Assessment - Wound [id number]# 1.00TIFF [facility] Nursing Note - Woundon 06-18 Nursing Note - Wound [id number] 10 [id number]# 1.00TIFF [facility] Physician Orderon 06-18-2023 Physician Order [id number] 0 [id number]# 1.00TIFF [facility] Procedure - Woundon 06-18-20 Procedure - Wound [id number] 0 [id number]# 1.00TIFF [facility] Progress Note - Woundon 06-07 Progress Note - Wound [id number]# 1.00TIFF [facility] Physician Orderon 06-17-2023 Physician Order [id number] 0 [id number]# 2.00TIFF [facility] Consent for Treatmenton Consent for Treatment [id number]#1 .00TIFF [facility] Multi-Wound Charton 06-11-20 Multi-Wound Chart [id number] 0 [id number]# 1.00TIFF [facility] Nursing Assessment - Woundon 06-11-2023 Nursing Assessment - Wound [id number]# 1.00TIFF [facility] Nursing Note - Woundon 06-11 Nursing Note - Wound [id number] 10 [id number]# 2.00TIFF [facility] Consent for Procedure/Surger yon 06-04-2023 Consent for Procedure/Surgery [id number]# 1.00CD:127 [facility] Consent for Treatmenton 05-09 Consent for Treatment [id number]#1 .00CD:127 [facility] Multi-Wound Charton 06-04-20 Multi-Wound Chart [id number] 9 [id number]# 1.00CD:127 [facility] Nursing Assessment - Woundon 06-04-2023 Nursing Assessment - Wound [id number]# 1.00CD:127 [facility] Nursing Note - Woundon 06-04 Nursing Note - Wound [id number] 09 [id number]# 1.00CD:127 [facility] Physician Orderon 06-04-2023 Physician Order [id number]# 1.00CD:127 [facility] Procedure - Woundon 06-04-20 Procedure - Wound [id number] 9 [id number]# 1.00CD:127 [facility] Progress Note - Woundon 05-09 Progress Note - Wound [id number]# 1.00CD:127 [facility] Insurance Correspondenceon 0 06-03-2023 Insurance Correspondence [id number]#1 .00CD:127 [facility] Consent for Treatmenton 05-08 Consent for Treatment [id number]#1 .00CD:127 [facility] Correspondence - Woundon Correspondence - Wound [id number]#1 .00CD:127 [facility] Insurance Correspondenceon 0 05-25-2023 Insurance Correspondence [id number]#1 .00CD:127 [facility] Insurance Correspondence [id number]# 1.00CD:127 [facility] Multi-Wound Charton 05-25-20 Multi-Wound Chart [id number] 9 [id number]# 1.00CD:127 [facility] Nursing Assessment - Woundon 05-25-2023 Nursing Assessment - Wound [id number]# 1.00CD:127 [facility] Nursing Note - Woundon 05-25 Nursing Note - Wound [id number] 09 [id number]# 1.00CD:127 [facility] Physician Orderon 05-25-2023 Physician Order [id number]# 1.00CD:127 [facility] Procedure - Woundon 05-25-20 Procedure - Wound [id number] 9 [id number]# 1.00CD:127 [facility] Progress Note - Woundon 05-08 Progress Note - Wound [id number]# 1.00CD:127 [facility] Nursing Note - Woundon 05-21 Nursing Note - Wound [id number] 09 [id number]# 1.00CD:127 [facility] Insurance Correspondenceon 0 05-18-2023 Insurance Correspondence [id number]#1 .00CD:127 [facility] Insurance Correspondenceon 0 05-15-2023 Insurance Correspondence [id number]#1. 00CD:127 [facility] Insurance Correspondence [id number]#1 .00CD:127 [facility] Consent for Procedure/Surger yon 05-14-2023 Consent for Procedure/Surgery [id number]# 1.00CD:127 [facility] Consent for Procedure/Surgery [id number]# 1.00CD:127 [facility] Consent for Treatmenton Consent for Treatment [id number]#1 .00CD:127 [facility] Correspondence - Woundon Correspondence - Wound [id number]# 1.00CD:127 [facility] Nursing Assessment - Woundon 05-14-2023 Nursing Assessment - Wound [id number]# 1.00CD:127 [facility] Nursing Note - Woundon 05-14 Nursing Note - Wound [id number] 09 [id number]# 1.00CD:127 [facility] Physician Orderon 05-14-2023 Physician Order [id number]# 1.00CD:127 [facility] Procedure - Woundon 05-14-20 Procedure - Wound [id number] 9 [id number]# 1.00CD:127 [facility] Progress Note - Woundon Progress Note - Wound [id number]# 1.00CD:127 [facility] Insurance Correspondenceon 0 05-13-2023 Insurance Correspondence [id number]#1.0 0CD:127 [facility] Nursing Note - Woundon 05-13 Nursing Note - Wound [id number] 08 [id number]# 2.00CD:127 [facility] Insurance Correspondenceon 0 05-12-2023 Insurance Correspondence [id number]# 1.00CD:127 [facility] Physician Orderon 05-12-2023 Physician Order [id number]# 1.00CD:127 [facility] Procedure - Woundon 05-12-20 Procedure - Wound [id number] 9 [id number]# 1.00CD:127 [facility] Consent for Treatmenton Consent for Treatment [id number]# 1.00CD:127 [facility] Multi-Wound Charton 05-08-20 Multi-Wound Chart [id number] 9 [id number]# 1.00CD:127 [facility] Nursing Assessment - Woundon 05-08-2023 Nursing Assessment - Wound [id number]# 1.00CD:127 [facility] Nursing Note - Woundon 05-08 Nursing Note - Wound [id number] 09 [id number]# 1.00CD:127 [facility] Consent for Treatmenton 04-09 Consent for Treatment [id number]#1 .00CD:127 [facility] Multi-Wound Charton 05-07-20 Multi-Wound Chart [id number] 8 [id number]# 1.00CD:127 [facility] Nursing Assessment - Woundon 05-07-2023 Nursing Assessment - Wound [id number]# 1.00CD:127 [facility] Physician Orderon 05-07-2023 Physician Order [id number]# 1.00CD:127 [facility] Procedure - Woundon 05-07-20 23 Procedure - Wound [id number] 8 [id number]# 1.00CD:127 [facility] Progress Note - Woundon - Progress Note - Wound [id number]# 1.00CD:127 [facility] Consent for Treatmenton 04-08 Consent for Treatment [id number]# 1.00CD:127 [facility] Physician Orderon 05-01-2023 Physician Order [id number]# 1.00CD:127 [facility] Procedure - Woundon 05-01-20 Procedure - Wound [id number]# 1.00CD:127 [facility] Multi-Wound Charton 04-30-20 Multi-Wound Chart [id number] 8 [id number]# 1.00CD:127 [facility] Nursing Assessment - Woundon 04-30-2023 Nursing Assessment - Wound [id number]# 1.00CD:127 [facility] Nursing Note - Woundon 04-30 Nursing Note - Wound [id number] 08 [id number]# 1.00CD:127 [facility] Outside Recordson 04-28-2023 Outside Records [id number] 0 [id number]# 1.00CD:127 [facility] Consent for Treatmenton 04-07 Consent for Treatment [id number]#1 .00CD:127 [facility] Nursing Note - Woundon 04-23 Nursing Note - Wound [id number] 08 [id number]# 1.00CD:127 Normal [facility] Physician Orderon 04-23-2023 Physician Order [id number]# 1.00CD:127 Normal [facility] Procedure - Woundon 04-23-20 Procedure - Wound [id number] 8 [id number]# 1.00CD:127 Normal [facility] Progress Note - Woundon 04-07 Progress Note - Wound [id number]# 1.00CD:127 Normal [facility] Addendum Noteon 04-22-2023 Hospital Monitor Authentication Interface Message Text Encounter addended by: Tanvir Black MD on: 04/22/2023 9:05 AM Actions taken: Clinical Note Signed Normal [facility] [employer] [facility] BASIC METABOLIC PANELon 04-07 Anion gap [Moles/Vol] 12 mmol/L Normal 10-20 [facility] [employer] [facility] Comment on above: Performed By: #### L See, HEPATIC, CH8 ####S PATHOLOGY [id number] [place], [place], Calcium [Mass/Vol] 8.6 mg/dL Normal 8.4-10.4 [facility] [employer] [facility] Comment on above: Performed By: #### L See, HEPATIC, CH8 ####S PATHOLOGY [id number] [place], [place], Chloride [Moles/Vol] 104 mmol/L Normal 97-111 [facility] Comment on above: Performed By: #### L See, HEPATIC, CH8 ####S PATHOLOGY [id number] [place], CO2 [Moles/Vol] 26 mmol/L Normal 21-30 [facility] [employer] [facility] Comment on above: Performed By: #### L See, HEPATIC, CH8 ####[facility] [id number] [place], Creatinine [Mass/Vol] 0.52 mg/dL Low 0.80-1.30 [facility] [employer] [facility] Comment on above: Performed By: #### L D, HEPATIC, CH8 ####[facility] [id number] [place], ESTIMATED GFR (CKD-EPI) 132 mL/min/1.73sqm Normal >=60 [facility] Comment on above: Result Comment: [...] Inclusion of Race in Diagnosing Kidney Disease. [place] Journal of Kidney Diseases 2021;79(2):268-88.e1. 2. N Engl J Med 1 Vol. 385 Issue 19 Pages 8862-3709 Performed By: #### L D, HEPATIC, CH8 ####S PATHOLOGY [id number] [place], Glucose [Mass/Vol] 80 mg/dL Normal 68-110 [facility] Comment on above: Performed By: #### L D, HEPATIC, CH8 ####[facility] [id number] [place], Potassium [Moles/Vol] 4.0 mmol/L Normal 3.3-5.3 [facility] Comment on above: Performed By: #### L D, HEPATIC, CH8 ####[facility] [id number] [place], Sodium [Moles/Vol] 138 mmol/L Normal 135-148 [facility] Comment on above: Performed By: #### L D, HEPATIC, CH8 ####[facility] [id number] [place], Urea nitrogen [Mass/Vol] 7 mg/dL Low 8-22 [facility] Comment on above: Performed By: #### L D, HEPATIC, CH8 ####[facility] [id number] [place], [place], Basic metabolic 2000 panelon 04-21-2023 Anion [...] (S/P/Bld) [Vol rate/Area] 132 mL/min/{1.73_m2} - PINF [facility] Comment on above: 2020 CKD EPI Equatio [...] Inclusion of Race in Diagnosing Kidney Disease. [place] Journal of Kidney Diseases 202;79(2):268-88.e1. 2. N Engl J Med 2020 Vol. 385 Issue 19 Pages 9620-8984 Glucose [Mass/Vol] 80 mg/dL 68 - 110 mg/dL [facility] Potassium [Moles/Vol] 4.0 mmol/L 3.3 - 5.3 mmol/L [facility] Sodium [Moles/Vol] 138 mmol/L 135 - 148 mmol/L [facility] Urea nitrogen [Mass/Vol] 7 mg/dL Low 8 - 22 mg/dL [facility] CBC WITH DIFFERENTIALon 04-07 Basophils (Bld) [#/Vol] 0.04 10*3/uL Normal 0.00-0.20 [facility] Comment on above: Performed By: #### A VIVIEN NICOLAS MDIFF #### [facility] [address] [place], [address] Basophils/100 WBC (Bld) 0.8 % Normal <=1.9 [facility] Comment on above: Performed By: #### A VIVIEN NICOLAS MDIFF #### [facility] [address] [place] [address], Eosinophils (Bld) [#/Vol] 0.12 10*3/uL Normal 0.00-0.70 [facility] Comment on above: Performed By: #### A VIVIEN NICOLAS MDIFF #### S PATH[facility] LABORATORY [address] [place] [address], Eosinophils/100 WBC (Bld) 2.5 % Normal 0.1-4.0 [facility] Comment on above: Performed By: #### A VIVIEN NICOLAS MDIFF #### [facility] [address] [place] [address], Erythrocyte distribution width (RBC) [Ratio] 19.6 % High 11.5-14.5 The [facility] Comment on above: Performed By: #### A VIVIEN NICOLAS MDIFF #### [facility] [address] [place] [address], Hematocrit (Bld) [Volume fraction] 36.3 % Low 41.0-53.0 [facility] Comment on above: Performed By: #### A VIVIEN NICOLAS MDIFF #### [facility] [address] [place] [address], Hemoglobin (Bld) [Mass/Vol] 12.2 g/dL Low 13.9-16.3 The [facility] Comment on above: Performed By: #### A VVIIEN NICOLAS MDIFF #### [facility] [address] [place] [address], Lymphocytes (Bld) [#/Vol] 1.13 10*3/uL Normal 1.00-4.80 The [facility] Comment on above: Performed By: #### A VIVIEN NICOLAS MDIFF #### [facility] [address] [place] [address], Lymphocytes/100 WBC (Bld) 23.3 % Low 24.0-44.0 The [facility] Comment on above: Performed By: #### A VIVIEN NICOLAS MDIFF #### [facility] [address] [place] [address], MCH (RBC) [Entitic mass] 34.3 pg High 26.0-34.0 [facility] Comment on above: Performed By: #### A VIVIEN NICOLAS MDIFF #### [facility] [address] [place] [address], MCHC (RBC) [Mass/Vol] 33.7 g/dL Normal 32.0-35.9 [facility] Comment on above: Performed By: #### A VIVIEN NICOLAS MDIFF #### [facility] [address] [place] [address], MCV (RBC) [Entitic vol] 102 fL High 80-100 [facility] Comment on above: Performed By: #### A VIVIEN NICOLAS MDIFF #### [facility] [address] [place] [address], MONOCYTE DISTRIBUTION WIDTH Normal [facility] Comment on above: Performed By: #### A VIVIEN NICOLAS MDIFF #### [facility] [address] [place] [address], Monocytes (Bld) [#/Vol] 0.61 10*3/uL Normal 0.20-1.00 [facility] Comment on above: Performed By: #### A VIVIEN NICOLAS MDIFF #### [facility] [address] [place], [place], Monocytes/100 WBC (Bld) 12.5 % High 2.0-11.0 The [facility] Comment on above: Performed By: #### A VIVIEN NICOLAS MDIFF #### [facility] [address] [place], [place], Neutrophils (Bld) [#/Vol] 2.95 10*3/uL Normal 1.50-8.00 [facility] Comment on above: Performed By: #### A VIVIEN NICOLAS MDIFF #### [facility] [address] [place], [place], Neutrophils/100 WBC (Bld) 60.8 % Normal 31.0-76.0 [facility] Comment on above: Performed By: #### A VIVIEN NICOLAS MDIFF #### S PATHOLOGY LABORATORY [address] [place], [place], Platelet mean volume (Bld) [Entitic vol] 8.6 fL Normal 7.5-11.2 [facility] Comment on above: Performed By: #### A VIVIEN NICOLAS MDIFF #### [facility] LABORATORY [address] [place], [place], Platelets (Bld) [#/Vol] 85 10*3/uL Low 150-400 [facility] Comment on above: Performed By: #### A VIVIEN NICOLAS MDIFF #### [facility] PATHOLOGY LABORATORY [address] [place], [place], RBC (Bld) [#/Vol] 3.57 10*6/uL Low 4.50-5.90 [facility] Comment on above: Performed By: #### A VIVIEN NICOLAS MDIFF #### [facility] PATHOLOGY LABORATORY [address] [place], [place], WBC (Bld) [#/Vol] 4.9 10*3/uL Normal 4.5-11.5 [facility] Comment on above: Performed By: #### A VIVIEN NICOLAS MDIFF #### [facility] PATHOLOGY LABORATORY [address] [place], [place], CBC WITH DIFFERENTIALOrdered By: Yany Carrera [...] 12.2 g/dL Low 13.9 - 16.3 g/dL [facility] Interpretation and review of laboratory [...] 04-21-2023 HAPTOGLOBIN < 30 Low 36-220 [facility] Comment on above: Performed By: #### H APT ####[facility] PATH[facility] [id number] [place], [address] Haptoglobin [Mass/Vol] mg/dL Low 36 - 220 mg/dL [facility] Interpretation and review of laboratory results Abnormal [facility] HEPATIC FUNCTION PANELon 08- 15-2023 Albumin [Mass/Vol] 3.2 g/dL Low 3.4-5.1 [facility] Comment on above: Performed By: #### L See, HEPATIC, CH8 ####S PATHOLOGY [id number] [place], [place], ALK 284 IU/L High 40-200 [facility] Comment on above: Performed By: #### L See, HEPATIC, CH8 ####S PATHOLOGY [id number] [place], ALT [Catalytic activity/Vol] 38 U/L Normal 7-40 [facility] Comment on above: Performed By: #### L See, HEPATIC, CH8 ####S PATHOLOGY GUWUFLYSAY1155 [place], AST [Catalytic activity/Vol] 70 U/L High 7-40 [facility] Comment on above: Performed By: #### Nadia Love, HEPATIC, CH8 ####S PATHOLOGY TPMDVBHFYM5749 [place], Bilirubin [Mass/Vol] 7.5 mg/dL High 0.1-1.5 [facility] Comment on above: Performed By: #### Nadia Love, HEPATIC, CH8 ####[facility] PATHOLOGY [id number] [place], Bilirubin.direct [Mass/Vol] 1.89 mg/dL High 0.10-0.30 [facility] Comment on above: Performed By: #### L See, HEPATIC, CH8 ####S PATHOLOGY EMURGORUJJ6157 [place], Protein [Mass/Vol] 7.6 g/dL Normal 6.2-8.3 [facility] Comment on above: Performed By: #### L See, HEPATIC, CH8 ####S PATHOLOGY CVLAXQTTBQ7028 [place], Albumin [Mass/Vol] 3.2 g/dL Low 3.4 - 5.1 g/dL [facility] ALP [Catalytic activity/Vol] 284 U/L High [facility] ALT [Catalytic activity/Vol] 38 U/L [facility] AST [Catalytic activity/Vol] 70 U/L High [facility] Bilirubin [Mass/Vol] 7.5 mg/dL High 0.1 - 1.5 mg/dL [facility] Bilirubin.direct [Mass/Vol] 1.89 mg/dL High 0.10 - 0.30 mg/dL [facility] Protein [Mass/Vol] 7.6 g/dL 6.2 - 8.3 g/dL [facility] LDHon 04-21-2023 LD 257 IU/L High 50-220 [facility] Comment on above: Performed By: #### L D, HEPATIC, CH8 ####S PATHOLOGY [id number] [place], LDH [Catalytic activity/Vol] 257 U/L High [facility] MANUAL DIFF AND MORPHon 04-07 ANISOCYTOSIS Slight Normal [facility] Comment on above: Performed By: #### A VIVIEN NICOLAS MDIFF #### [facility] PATHOLOGY LABORATORY [address] [place] [address], CELLS COUNTED TOTAL # IN BLOOD Normal [facility] Comment on above: Performed By: #### A VIVIEN NICOLAS MDIFF #### S PATHOLOGY LABORATORY [address] [place] [address], FRAGMENTED RBC Few Normal [facility] Comment on above: Performed By: #### A VIVIEN NIOCLAS MDIFF #### S PATHOLOGY LABORATORY [address] [place] [address], OVALOCYTES Few Normal [facility] Comment on above: Performed By: #### A VIVIEN NICOLAS MDIFF #### S PATHOLOGY LABORATORY [address] [place] [address], TARGET CELLS Few Normal [facility] Comment on above: Performed By: #### A VIVIEN NICOLAS MDIFF #### S PATHOLOGY LABORATORY [address] [place] [address], TEARDROP CELLS Few Normal [facility] Comment on above: Performed By: #### A VIVIEN NICOLAS MDIFF #### S PATHOLOGY LABORATORY [address] [place] [address], Anisocytosis Ql (Bld) Slight [facility] Cells Counted Total (Bld) [#] [facility] Dacrocytes LM Ql (Bld) Few [facility] Ovalocytes LM Ql (Bld) Few [facility] Schistocytes LM Ql (Bld) Few [facility] Target cells LM Ql (Bld) Few [facility] No Panel InformationOrdered By: Yany Carrera on 04-21-2023 [facility] No Panel Informationon 04-21 Interpretation and review of laboratory results Abnormal [facility] Progress Noteson 04-21-2023 Hospital Monitor Authentication Interface Message Text Patient was identified by name and date of . Monie Hernandez RN Patient at risk for falls:No Falls Risk protocol implemented: No Patient arrived to clinic for blood work. Labs obtained via venipuncture in the R AC with a #23 gauge butterfly needle. drsg applied and patient tolerated procedure well. Monie Hernandez RN Normal [facility] Monitor Authentication Interface Message Text Hematology AND Oncology Clinic Note Reason for Consult: Hemolytic anemia Alcoholic cirrhosis Thrombocytopenia Long-term steroid use Referring Provider: Afua Umanzor MD CC: *AIHA *Liver cirrhosis *PAD History of Present Illness Will Ralph is a 37 year old male with [...] B27 positive) 2003 Followed with Rheum at [facility] Open fracture of other and unspecified [...] 120 min Stress: Stress Concern Present (02/27/2023) Vincentian Goodman of Occupational Health - Occupational Stress Questionnaire Feeling of Stress : Very much Social Connections: Socially Isolated (02/27/2023) Social Connection and Isolation Panel [NHANES] Frequency of Communication with Friends and Family: More than three times a week Frequency of Social Gatherings with Friends and Family: Patient refused Attends Islam Services: Never Active Member of Clubs or [...] lactulos (more content not included)... Normal [facility] Monitor Authentication Interface Message Text Patient was identified [...] 100 %. Gustabo Isaak Pittman Normal [facility] Monitor Authentication Interface Message Text Patient was identified [...] Comment on above: Performed By: #### A VIVIEN NICOLAS MDIFF #### [facility] [address] [place], [place], RETIC # 0.09 M/uL High 0.03-0.08 [facility] Comment on above: Performed By: #### A VIVIEN NICOLAS MDIFF #### [facility] [address] [place], RETIC % 2.6 % High 0.5-1.5 [facility] Comment on above: Performed By: #### A VIVIEN NICOLAS MDIFF #### [facility] [address] [place], [place], Immature reticulocytes/Total reticulocytes (Bld) 0.46 % 0.30 - 0.50 [facility] Interpretation and review of laboratory results Abnormal [facility] Reticulocytes (Bld) [#/Vol] 0.09 10*3/uL High [facility] Reticulocytes/100 RBC (Bld) 2.6 % High 0.5 - 1.5 % [facility] US PVR Lower EXT Complete Bi laton 04-20-2023 US PVR Lower EXT Complete Bilat Normal [facility] Consent for Treatmenton 04-07 Consent for Treatment [id number]#1 .00CD:127 Normal [facility] Consent for Procedure/Surger yon 04-13-2023 Consent for Procedure/Surgery [id number]#1 .00CD:127 Normal [facility] Consent for Treatmenton Consent for Treatment [id number]#1 .00CD:127 Normal [facility] Insurance Correspondenceon 0 04-13-2023 Insurance Correspondence [id number]#1 .00CD:127 [facility] Multi-Wound Charton 04-13-20 Multi-Wound Chart [id number]# 1.00CD:127 [facility] Nursing Assessment - Woundon 04-13-2023 Nursing Assessment - Wound [id number]# 1.00CD:127 [facility] Nursing Note - Woundon 04-13 Nursing Note - Wound [id number]# 1.00CD:127 [facility] Physician Orderon 04-13-2023 Physician Order [id number]#1 .00CD:127 [facility] Physician Order [id number]# 1.00CD:127 [facility] Procedure - Woundon 04-13-20 Procedure - Wound [id number]# 1.00CD:127 [facility] Progress Note - Woundon Progress Note - Wound [id number]# 1.00CD:127 [facility] C Blood Charcoalon Blood Culture Charcoal [facility] Comment on above: Performed By: #### 1 [id number] ####[facility] [address] [place] [address] Consent for Treatmenton 03-08 Consent for Treatment [id number]#1 .00CD:127 [facility] Multi-Wound Charton 03-30-20 Multi-Wound Chart [id number] 7 [id number]# 1.00CD:127 [facility] Nursing Assessment - Woundon 03-30-2023 Nursing Assessment - Wound [id number]# 1.00CD:127 Normal [facility] Nursing Note - Woundon 03-30 Nursing Note - Wound [id number]# 1.00CD:127 Normal [facility] Physician Orderon 03-30-2023 Physician Order [id number]# 1.00CD:127 Normal [facility] Procedure - Woundon 03-30-20 Procedure - Wound [id number]# 1.00CD:127 Normal [facility] Progress Note - Woundon 03-08 Progress Note - Wound [id number]# 1.00CD:127 Normal [facility] Discharge Instructionson Discharge Instructions [id number]#1. 00CD:127 Normal [facility] Auto Diffon 03-22-2023 Basophils/100 WBC (Bld) 0.4 % Normal 0.0-2.0 [facility] Comment on above: Order Comment: Order Added by Discern Expert. Performed By: #### 2 143825, 32564000, 7937984, 2911986, 5532799, 5909012, 15521612 ####[facility] [address] [place] [address] Basophils/Leukocytes Auto (Bld) [Pure # fraction] 0.0 E9/L Normal 0.0-0.2 [facility] Comment on above: Order Comment: Order Added by Discern Expert. Performed By: #### 2 645883, 59801527, 3109432, 4920681, 8727809, 1624467, 73494732 ####[facility] [address] [place] [address] Eosinophils/100 WBC (Bld) 1.3 % Normal 0.0-8.0 [facility] Comment on above: Order Comment: Order Added by Discern Expert. Performed By: #### 2 159258, 30902498, 5292594, 5676488, 5787031, 4241765, 53766960 ####[address] [place] [address] Eosinophils/Leukocyt es Auto (Bld) [Pure # fraction] 0.1 E9/L Normal 0.0-0.5 [facility] Comment on above: Order Comment: Order Added by Discern Expert. Performed By: #### 2 947728, 81405098, 1970229, 3156757, 1763753, 5726173, 63504719 ####[address] [address] Lymphocytes/100 WBC (Bld) 14.6 % Normal 14.0-50.0 [facility] Comment on above: Order Comment: Order Added by Discern Expert. Performed By: #### 2 201172, 99278685, 5706864, 7752566, 4436225, 4243985, 36610461 ####[address] [address] Lymphocytes/Leukocyt es Auto (Bld) [Pure # fraction] 1.5 E9/L Normal 1.0-4.0 [facility] Comment on above: Order Comment: Order Added by Discern Expert. Performed By: #### 2 926138, 31470752, 4551097, 1232511, 5082645, 3091684, 96704410 ####[address] [place] [address] Monocytes/100 WBC (Bld) 7.9 % Normal 4.0-14.0 [facility] Comment on above: Order Comment: Order Added by Discern Expert. Performed By: #### 2 357172, 41975130, 6085263, 8151299, 2064200, 4323675, 88805548 ####[address] [address] Monocytes/Leukocytes Auto (Bld) [Pure # fraction] 0.8 E9/L Normal 0.2-1.0 [facility] Comment on above: Order Comment: Order Added by Discern Expert. Performed By: #### 2 912958, 67775049, 2383852, 7852514, 3265872, 2462825, 15372609 ####[facility] [address] [place] [address] Neutrophils/100 WBC (Bld) 75.8 % High 36.0-75.0 [facility] Comment on above: Order Comment: Order Added by Discern Expert. Performed By: #### 2 741625, 44919078, 6763670, 4194262, 9157259, 2933706, 43562828 ####[address] [address] Neutrophils/Leukocyt es Auto (Bld) [Pure # fraction] 7.7 E9/L High 2.0-7.5 [facility] Comment on above: Order Comment: Order Added by Discern Expert. Performed By: #### 2 831009, 37594986, 3239055, 2844497, 9553896, 7970380, 79122653 ####[facility] [address] [place] [address] CBC w/ Auto Diffon 3 Erythrocyte distribution width (RBC) [Ratio] 15.4 % High 10.9-14.2 [facility] Comment on above: Performed By: #### 2 514397, 07938269, 6913314, 0166191, 6009732, 7293565, 87395455 ####[facility] [address] [place] [address] Hematocrit (Bld) [Volume fraction] 30.1 % Low 37.7-49.0 [facility] Comment on above: Performed By: #### 2 555295, 22827147, 0000822, 3676156, 1868335, 7206788, 84234998 ####[facility] [address] [place] [address] Hemoglobin (Bld) [Mass/Vol] 10.3 g/dL Low 13.5-17.5 [facility] Comment on above: Performed By: #### 2 515548, 52586949, 7163422, 9821888, 2504723, 6190085, 19431905 ####[facility] [address] [place] [address] MCH (RBC) [Entitic mass] 34.1 pg High 27.0-34.0 [facility] Comment on above: Performed By: #### 2 300018, 67889423, 9508319, 3804021, 8781501, 9163707, 73717114 ####[address] [address] MCHC (RBC) [Mass/Vol] 34.2 g/dL Normal 31.4-36.0 [facility] Comment on above: Performed By: #### 2 519446, 43671488, 7773813, 0936959, 5597483, 9415743, 17650903 ####[address] [address] MCV (RBC) [Entitic vol] 99.4 fL Normal 80.0-100.0 [facility] Comment on above: Performed By: #### 2 406367, 83943422, 1634253, 3126194, 0752790, 0751137, 24756238 ####[address] [address] Platelet mean volume (Bld) [Entitic vol] 8.6 fL Normal 6.4-10.8 [facility] Comment on above: Performed By: #### 2 328477, 53529174, 7953315, 4044862, 0594565, 2356371, 66368431 ####[address] [address] Platelets (Bld) [#/Vol] 87.0 E9/L Low 150.0-500.0 [facility] Comment on above: Performed By: #### 2 015252, 48001414, 5521817, 0515106, 2563243, 9755441, 88342585 ####[facility] [address] [place] [address] RBC (Bld) [#/Vol] 3.0 E12/L Low 4.3-5.9 [facility] Comment on above: Performed By: #### 2 232331, 56061344, 9741596, 2522866, 6337702, 8970130, 76711755 ####[facility] [address] [place] [address] WBC corrected for nucl RBC Auto (Bld) [#/Vol] 10.1 E9/L Normal 4.0-11.0 [facility] Comment on above: Performed By: #### 2 982466, 69662569, 4498530, 6896152, 3655309, 6769496, 39375682 ####[facility] [address] [place] [address] CHEMISTRYOrdered By: SYSTEM SYSTEM on 03-22-2023 Albumin [...] rate/Area] 127 mL/min/1.73 m2 Normal >=59mL/min/1.73 m2 [facility] Chem S Globulin (S) [Mass/Vol] 4.7 g/dL High 1.4 - 4.0 gm/dL FT [facility] Glucose [Mass/Vol] 146 mg/dL Normal 55 - 199 mg/dL [facility] Remisol Lactate [Mass/Vol] 2.0 mmol/L Normal 0.5 - 2.2 mmol/L [facility] Potassium [Moles/Vol] 3.0 mmol/L Low 3.5 - 5.3 mmol/L [facility] Protein [Mass/Vol] 7.2 g/dL Normal 6.0 - 7.8 gm/dL [facility] Remisol Sodium [Moles/Vol] 133 mmol/L Low 135 - 145 mmol/L [facility] Troponin I.cardiac [Mass/Vol] 10.30 pg/mL Low 15.90 - 38.40 pg/mL [facility] Urea nitrogen [Mass/Vol] 7 mg/dL Normal 5 - 21 mg/dL [facility] Urea nitrogen/Creatinine [Mass ratio] 12 mg/mg Normal 10 - 20 [facility] CMPon 03-22-2023 Albumin [Mass/Vol] 2.5 g/dL Low 3.3-5.0 [facility] Comment on above: Performed By: #### 2 385545, 76945697, 4773451, 0337151, 5212095, 9733452, 67765852 ####[facility] [address] [place] [address] Albumin/Globulin (S) [Mass conc ratio] 0.5 Low 1.1-2.2 [facility] Comment on above: Performed By: #### 2 436291, 38586629, 9841929, 8285131, 8771612, 3848177, 33724352 ####[facility] [address] [place] [address] ALP [Catalytic activity/Vol] 158 Int._Unit/L High 21-98 [facility] Comment on above: Performed By: #### 2 601209, 65036177, 8715714, 7496234, 2343883, 1416802, 10681014 ####[facility] [address] [place] [address] ALT No additional P-5'-P [Catalytic activity/Vol] 50 Int._Unit/L High 6-46 [facility] Comment on above: Performed By: #### 2 617013, 83007716, 5074202, 4161556, 2038973, 4423450, 34381501 ####[facility] [address] [place] [address] AST [Catalytic activity/Vol] 80 Int._Unit/L High 5-43 [facility] Comment on above: Performed By: #### 2 620709, 15675873, 1839888, 9708230, 2856870, 0726336, 59724150 ####[facility] [address] [place] [address] Bilirubin [Mass/Vol] 8.1 mg/dL High 0.0-1.1 [facility] Comment on above: Performed By: #### 2 047958, 77050251, 0095377, 1352184, 2363137, 3234838, 04640753 ####[facility] [address] [place] [address] Creatinine [Mass/Vol] 0.6 mg/dL Normal 0.5-1.3 [facility] Comment on above: Performed By: #### 2 308701, 57071980, 4539516, 3533463, 7940169, 6071535, 45105277 ####[facility] [address] [place] [address] Globulin (S) [Mass/Vol] 4.7 g/dL High 1.4-4.0 [facility] Comment on above: Performed By: #### 2 727352, 95888698, 9106214, 2567425, 2929178, 5698582, 64179669 ####[facility] [address] [place] [address] Protein [Mass/Vol] 7.2 g/dL Normal 6.0-7.8 [facility] Comment on above: Performed By: #### 2 536814, 25335706, 4681039, 0269987, 8504104, 6707556, 96551543 ####[facility] [address] [place] [address] Urea nitrogen [Mass/Vol] 7 mg/dL Normal 5-21 [facility] Comment on above: Performed By: #### 2 236443, 00983340, 2109903, 0661221, 5285428, 8674308, 62088728 ####[facility] [address] [place] [address] Urea nitrogen/Creatinine [Mass ratio] 12 No Units Normal 10-20 [facility] Comment on above: Performed By: #### 2 046665, 50664858, 6445654, 3167972, 5725866, 4718252, 53587082 ####[facility] [address] [place] [address] Anion gap [Moles/Vol] 8 mmol/L Normal 6-16 [facility] Comment on above: Performed By: #### 2 887629, 62775943, 5372034, 5009635, 3391886, 5817537, 83922042 ####[facility] [address] [place] [address] Calcium [Mass/Vol] 8.2 mg/dL Low 8.9-11.1 [facility] Comment on above: Performed By: #### 2 345856, 02492024, 9989619, 7661714, 0670366, 7121483, 78247558 ####[facility] [address] [place] [address] Chloride [Moles/Vol] 103 mmol/L Normal 101-111 [facility] Comment on above: Performed By: #### 2 718440, 17264567, 5055508, 9423686, 2863868, 5961874, 12884353 ####[facility] [address] [place] [address] CO2 [Moles/Vol] 25 mmol/L Normal 21-31 [facility] Comment on above: Performed By: #### 2 745491, 18835435, 8811494, 4629328, 9750808, 7610999, 31801832 ####[facility] [address] [place] [address] Glucose [Mass/Vol] 146 mg/dL Normal 55-199 [facility] Comment on above: Result Comment: If t his glucose result represents a fasting glucose, interpretation should refer to the following reference range: 55-99 mg/dL Performed By: #### 2 582774, 36390794, 7898713, 5160578, 7923764, 8110395, 25922463 ####[facility] [address] [place] [address] Potassium [Moles/Vol] 3.0 mmol/L Low 3.5-5.3 [facility] Comment on above: Performed By: #### 2 579768, 47526398, 8284159, 4508420, 6122441, 5262899, 65109605 ####[facility] [address] [place] [address] Sodium [Moles/Vol] 133 mmol/L Low 135-145 [facility] Comment on above: Performed By: #### 2 839244, 15464659, 3359084, 1768933, 2141039, 7685169, 19674498 ####[facility] [address] [place] [address] COAGULATIONOrdered By: Mayuri Russell on 03-22-2023 aPTT Coag (PPP) [Time] 42.0 s High 25.1 - 36.5 second(s) [facility] Auto Coag INR Coag (PPP) [Relative time] 2.6 {INR} Invalid Interpretation Code [facility] Auto Coag PT Coag (PPP) [Time] 30.4 s High 9.4 - 1 2.5 second(s) [facility] Auto Coag Consent for Treatmenton 03-07 Consent for Treatment [id number]#1 .00CD:127 Normal [facility] ED Clinical Summaryon 2022 ED Clinical Summary Normal [facility] ED Note-Physicianon 03-22-20 ED Note-Physician Normal [facility] Comment on above: Result Comment: Elec tronically Signed By: Martin Reese DO SSarah\.br\Date and Time Signed: 03/22/23 21:43 EDT ED Patient Education Noteon 03-22-2023 ED Patient Education Note Normal [facility] ED Patient Summaryon 023 ED Patient Summary Normal [facility] HEMATOLOGYOrdered By: SYSTEM SYSTEM on 03-22-2023 [...] 75.8 % High 36.0 - 75.0 % FT HemeAutoSS Neutrophils/Leukocyt es Auto (Bld) [Pure # [...] 10.1 E9/L Normal 4.0 - 11.0 E9/L [facility] HemeAutoSS Lactic Acidon 03-22-2023 Lactate [Mass/Vol] 2.0 mmol/L Normal 0.5-2.2 [facility] Comment on above: Performed By: #### 2 433351, 83298228, 5596427, 6881717, 2388302, 1758696, 78627463 ####[facility] [address] [place] [address] PT & PTTon 03-22-2023 aPTT Coag (PPP) [Time] 42.0 second(s) High 25.1-36.5 [facility] Comment on above: Result Comment: Para [...] the same coagulation reagent and instrumentation as [facility]. Currently there are no coagulation studies available worldwide for children to 14 days, and no normal ranges. Heparin therapeutic range (represented by Anti-Factor Xa activity of 0.2 - 0.4 U/mL) corresponds to PTT of 56.6 - 109.0 sec. Performed By: #### 2 088638, 04657108, 8974486, 1431809, 9679441, 1262265, 76161539 ####[facility] [address] [place] [address] INR Coag (PPP) [Relative time] 2.6 {INR} Invalid Interpretation Code [facility] Comment on above: Result Comment: INR results are specifically intended to assess patients stabilized on long-term Anticoagulation therapy suggested INR?s ?Less Intensive Anticoagulation? 2.0 ? 3.0Conventional Range 3.0 ? 4.5 Performed By: #### 2 [id number], [id number], [id number], [id number], [id number], [id number], [id number] ####[facility] [address] [place] [address] PT Coag (PPP) [Time] 30.4 second(s) High 9.4-12.5 [facility] Comment on above: Result Comment: 15 [...] the same coagulation reagent and instrumentation as [facility]. Currently there are no coagulation studies available worldwide for children to 14 days, and no normal ranges. Performed By: #### 2 [id number], [id number], [id number], [id number], [id number], [id number], [id number] ####[facility] [address] [place] [address] Troponinon 03-22-2023 Troponin I.cardiac [Mass/Vol] 10.30 pg/mL Low 15.90-38.40 [facility] Comment on above: Result Comment: The 95% CI (Confidence Interval) PPV (Positive Predictive Value) for myocardial infarction in females is 38 pg/mL, in males 51 pg/mL. The results should be used in conjunction with clinical conditions of myocardial infarction.(Access High Sensitivity Troponin I Instructions For Use, Sunny Wecash, April 2018) Performed By: #### 2 [id number], [id number], [id number], [id number], 3559591, [id number], [id number] ####[facility] [address] [place] [address] eGFRon 03-22-2023 GFR/1.73 sq M.predicted among non-blacks MDRD (S/P/Bld) [Vol rate/Area] 127 mL/min/1.73 m2 Normal >=59 [facility] Comment on above: Order Comment: Order added by Discern Expert. Result Comment: Appointment Manager antonio kidney disease could be indicated at eGFR's of less than 60 mL/min/1.73m2. Kidney failure is indicated at less than 15 mL/min/1.73m2. Performed By: #### 2 [id number], [id number], [id number], 2305694, 8505567, [id number], [id number] ####[facility] [address] [place] [address] Consent for Procedure/Surger yon 03-18-2023 Consent for Procedure/Surgery [id number]# 1.00CD:127 [facility] Consent for Treatmenton 03-07 Consent for Treatment [id number]#1 .00CD:127 [facility] Multi-Wound Charton 03-16-20 Multi-Wound Chart [id number]# 1.00CD:127 [facility] Nursing Assessment - Woundon 03-16-2023 Nursing Assessment - Wound [id number]# 1.00CD:127 [facility] Nursing Note - Woundon 03-16 Nursing Note - Wound [id number]# 1.00CD:127 [facility] Physician Orderon 03-16-2023 Physician Order [id number]# 1.00CD:127 [facility] Procedure - Woundon 03-16-20 Procedure - Wound [id number]# 1.00CD:127 [facility] Telephone Encounteron 2022 Hospital Monitor Authentication Interface Message Text A prior authorization has been started for Lidocaine 5% patch PA status can be found under the prescription order in the Medication Tab. History or status of the PA can also be found in Chart Review under Referral tab. Normal [employer] Progress Noteson 02-27-2023 Hospital Monitor Authentication Interface Message Text This encounter was opened in error. Patient was a No-Show. Please disregard. Normal [employer] Telephone Encounteron 2022 Hospital Monitor Authentication Interface Message Text Pt had video visit scheduled. Link sent to him, but he never checked in. Normal [facility] [employer] [facility] Hospital Monitor Authentication Interface Message Text Called the patient Reminded him of his video visit this ThursdayMarch 03 with Lindsey Mahmood Pt concerned about his leg, he will send a picture to My Chart To his provider Concerned about his infection Notified Lindsey Mahmood Normal [facility] [employer] [facility] Hospital Monitor Authentication Interface Message Text What is the need: call back Situation: Pt states that the doctors office called him stating that they were running behind but he never got a phone call. Please advise Background: Please contact and advise Assessment: Pt contact info is Phone numbers Recommendation: n/a Thank you Normal [employer] Telephone Encounteron 2022 Hospital Monitor Authentication Interface Message Text NB ~~thank you ~~K Normal [facility] [employer] [facility] Hospital Monitor Authentication Interface Message Text Called the patient Leg is not getting worse Getting a little better Concerned he is on the wrong antibiotic Scheduled for a video visit with Dr Winter partner Lindsey Mahmood for tomorrow @ 1140am Normal [facility] [employer] [facility] Hospital Monitor Authentication Interface Message Text PLEASE SEE MY CHART ENCOUTNER CLOSING THIS ENCOUTNER Normal [facility] [employer] [facility] Hospital Monitor Authentication Interface Message Text We should probably call and advise urgent care if we can't get him in. Maybe try to schedule with someone next week? Normal [employer] Telephone Encounteron 2022 Hospital Monitor Authentication Interface Message Text Patient was identified by name and date of . EMILY COTO RN Called patient to triage in [facility] messagehe states he is taking water [...] see any appointments until late next week. [employer] message: Will Ralph to Theo Burks MD 02/25/23 9:43 AM [...] Help please. Theo Burks MD to Clinical [facility] 02/25/23 2:30 PM Please call patient and triage. If pain is severe and cannot walk recommend follow up in ED. If some improvement, please have him come in for same day or next day appointment. Normal [employer] Telephone Encounteron 2022 Hospital Monitor Authentication Interface Message Text Last written 10/27/22 Normal [employer] *SPECIMEN FOR SURGICAL PATHO LOGYOrdered By: Daniella Conde on 01-27-2023 Case Report Surgical Pathology Report Case: [id number] Authorizing Provider: Eirca Rock MD Collected: 01/20/2023 9492 Ordering Location: [facility] Radiology Received: 01/20/2023 1721 Pathologist: Daniella Conde MD Specimen: Liver biopsy, Transvenous biopsy nontargeted [facility] Work Phone: [facility] Work [facility]: Final Diagnosis [id number] b GFuZzEwMzNcZnRuYmpcdW MxIHtccnRmMVxlcGljMTA hSQLem3skp7rnlSPyEOSj l1tkh2VehNIohAEpQSbhw OAthtDegm47mPZ2lL28GM 5mQYRoZaQ7EYEwmpY6Ggj 1VJRxFQZgqABxV217n9kl k5lmjjTowPD1YJTyRCSlI 4NdES7zZEThqCXtY09ddC KpMBH6HQVgZSHyaSBnTZQ fYAY5SSLxyPYwC4uqSFFu EE7jpgypRAmmSYfbBHQef FY6MTGdsPThA2OwIZGoHG pxURThbbo9VpIvDu8ggTG jxFvgCVviXVSrIQ3wh7rr A0YimRAwJSNyEAghIMEsF xFbEYYQTiOhHEe1CZZhXO XaYI1uitPtwFraxoOccB4 rk9lbUAIbnpvlWCenEDHg d5tkW2RiuMOfZICuOXZQq YVwvS0agYHqRXPjBDCEq8 6hJZ54VGDjGSXquETenMR qGWL7CAapMGHwt7FjgRZu AVJjssrtCCVfWdk8iEQMa 04gRW79JirvNHj3yEKjZK AbGSYvjYlcpJ5ldOUyRnU 4uIHfF2wzchwub2xbAAmi HD9drESskiqjMA36OIwur 1KlhV5ttPEqnXe8OYeqXT DfcYYwUFI4TB8gFJUpw2B gF7DfWQZBz1nvhzLzZXuw dGggdGhlIHBhdGllbnQnc tStrEU9y6U8SMJ7nEXpPj xfTPxvE5GbGRNnSMEmuOJ pcHrmnFAag7j6iBJamDFf gD9hnTQeE5fxgkezd5jeO mRmE4XrJTUul7zaWZHbmj AxvDWwjrkrDQIzuh69fP3 mpMDwaNWgXCFhp8OqhRao BJjuxaIoGPGzhiUxD1r9v WEgaXMgYWxzbyBzZWVuLi FznivqTWI9o0usyZCdLDB twXXeDgDyNSMyABLlc9wl ZGVmbGFuZzEwMzNcZnRuY nbieFUzFFVkKnMjy3jkk1 11yPIvt6frVQTaPtH1lZJ lLZBfjNVxV796AECtHVfs x0iah2QlRYBaaCMgy2Q7U ZDZicumeVg3nOmhR32gu5 X3NpnpM5keNDGfGXYkN2C fYJ2aQQHiTxw0SSZ1BCP9 NZKcZMn9RUzvUZOpXXVnM bk3JKa3WBlzazJaSWhcnm FvddBaHig2JRNdS311VVU 6uDeyz0gbZWR0CCDeRNJk XjNcMp6yyBYpM092OEDoZ CVYMHTijDs6QSOsqsPsiz YcoUKKx741T177z7jmILE ubhMuhJmAswwoe7bqV379 XHBhcGVydzEyMjQwXHBhc SIexOY7COJcRB0gagxlOY cuCKhaVRPfofS5NVYbaWQ wM4CeBRZaEP6weakiPEW8 BLgfDMFhMRE1TkRbYPFjo 8Oyuct9HuTout2vsy50AM C5s7FazIbdGAB6LLD5BcC qRm2tjPTaCARxSQ4oRbYw qEYtSRQenz63nHzkDKdrf wLqgZ1bKlImLBCwmSYoML FcER5ktTKwRPZzeE8yxmb jXHBnYnJkcmhlYWRccGdi ckKyKc7ghXnrWOE1ZMmoW 8pajT0iIhM9JKsgZ3gbvU 4zYZt5WWbtpUV3RTJgqY1 aLJ7wfksiv6yjLBazCInh GUDziuI0kxP3ITVkfTGbR 0TziN4nIDQwSP2cxgosp1 ptCMD1XCzlXYBkKFF8QlV sKOQju7Gpcjr4FxNsw9Iq mWLjDHntJ89zo130DODgp bHsR2guvVFwivybcBVcqu csCXypgfL6UMPeXOFtTVz uXGYxXGZzMjJcbGFuZzEw MzNcaGljaFxmMVxkYmNoX KAbPJuvA3kyKdZcWzSiMy ptLAXreZdkjA7xSyLlTlR mWTrfTD3wQDWjC4qwjTGe ZPMfFIQkT0suNqCxoJ4fy DxiCBdlhlHyGFPxUTJ0so 1vyMHjxYe7XTPzS08uBRX McRCfMznxE8CxkVXcIUN0 jFHwSF9ODT7nCAP5InFcQ zIwMjMuXHBhclxwYXJccG spuH8fWtKhMzMkXIebHA0 jGAYoD2dwzQYlUCEpXENj G4dzSoLjvA7bkWvcCQnaF cObUxYcHAakSHetL0YeeP hevWK3lCS4ZTxraETma91 tOJxoiTCxp97vwBM6LWTz mIelPMKkZLjxv2Z5hTTdF CWcuTCtqViypvCsCpQ5qA SaUDKahaIxy8JrX3gtEC0 uijcvXF9kEPjyzjJauuCr ZGVyZWQgdGhlIGZpbmFsI STwALfji3KjrpjmgcdrBP xwbGFpblxmMVxmczIyXGx pdyrdTRBaDQktK0wjXeBr MLTqwOvdDGkhf9TcUQPeT NSsVwSumCDuKBKlqu54 [facility] Work Phone: Gross Description g9yncLKtKRQknAZpIHYo N lhfnoGqIZQkaRVzZ6Ioqm tgMAegTZ2xGX0frLuzpIX svEUkEQRoBxGsq1twm779 wYYab0ubTREFmlogqGr5v AyvO32to5D7AyciT55cgT RtZZG9TZZeZFKdmSEfZDB mNSK9ARVapLEiJ8isNBHk YU1nmxooZVviRZywXCYig PL5DWMzxGHcX1MwGZCkTX yuQNNgdqa9FrPsNi7slTH yeTcyMFxwYXJkXHBsYWlu FGFcTfWxRS3rRYSicQJrc 2k6cZ1dHXBoDHPbQhvnys WeAIQml7BudBOiEMUwaeY UsXVfr0KaU2xxAN9lfHMj kuDwPWz1OBIbBmGpg5lef W7zHEFltA9hxNMyR46yxD FpbmVyLCBsYWJlbGVkIHd goOvkcCL4zXTauIfkNP4o iCPnWW1lSLecQWujakXdd 7XsQE89cCHbojmhIV8vXS U2zqkcU4ZeYO50sJOkxf2 nHHBbs4BeLGLyPEWhkZFl uxIadF9sd6pgVoUKuCQmp 4IqT1crPT1sH75rw2yobR Cpb0VpPxE9FS4flhJkQEd lIGNvcmUgYmlvcHNpZXMg oTKum3NurX2hLAYtUEUhw OAsglXtRO89EHMiHHkkXQ kolxg0lXVclhPajQomHAO uMSBjbSBpbiBkaWFtZXRl ck0zHBpqALNhQPIgmWFsH JzhAGQ9Ax1scREoFYOasf N7n0JiVQihHM5mRHGoYQC cYDA1WF7qXkYqHIHiyjvf KOYru1KujOVeeF== [facility] Work Phone: [employer] g6ozoARoYYZnqFNoFVUc N ItmowUkEDGzsWLdM1Geng rwDEcpQY4lPE6fnKsfzEI yaWGaXOHxMeHkz8dck052 hHToz0wyPDATutwyuBv6y DtdC65we2N3YfzcZ69eiS ZqPDA6RHRxXKDxrDBzPNR yDGU3TNEejDJxN5cfGMLa VD8xptdcRGvyPQrpRPKgs JO9RENieJQyC3YtAWTrJF msGDEhawg5FfZmLj0mpNP yeTcyMFxwYXJkXHBsYWlu NKIgPjGuYK1dGWiwkMKfy FQwlCR9qK8qII3dAIXmgj mcMRLzLyi3yGRNrJTurfc 1bDAgOlxwYXJccGFyIFRy iBAzld4dRWajVAFpFKyiT 0othJurvTHmL7hsssolr7 qwZSJntzckVYAVPe5QGqY kLsJaIjDrKHBkbaDvLm1o HVzufBCwD3g0j8ZnIKAnb DUxM0ahRdHsTYImpFWuVE RdUMXfherfDBPuVDqiJ5P yKBSlEWUhwz6fVIWjodan YXJkXHBhcn0= [employer] Work Phone: [employer] Work Phone: No Panel Informationon 01-21 EXAMINATION: XA TRANSJUGULAR LIVER BIOPSY (CHRISTIANO), XA HEPATIC VENOGRAM W/ HEMODYN (CHRISTIANO) 01/20/2023 10:46 AM CLINICAL HISTORY: Rad Procedure required: = Transjugular liver biopsy with portal pressure measurements,Suspecte d liver fibrosis ASSOCIATED DIAGNOSIS: Alcoholic fatty liver Hyperbilirubinemia Alcoholic hepatitis, unspecified whether ascites present ORDERING PROVIDER: HALEY GARY [employer]ISTS NOTE: Right atrium: 14, pre hepatic: 18, wedged hepatic: 32. Moderate sedation intraservice time [id number] FLUOROSCOPIST: ERICA ROCK FLUORO TIME: 41.6 Minutes [...] microaccess catheter under fluoroscopic guidance. A 10 Brazilian curved tip renal vein sheath was then advanced over the wire into the right atrium. The obturator was removed and a 5 Brazilian MPB catheter was used to select the [...] vein was again selected with a 5 Brazilian MPB catheter which was then exchanged over an Amplatz wire for the 10 Brazilian venous sheath. This was repeated several times for attempted transvenous liver biopsy through the right hepatic vein; however, the 10 Brazilian sheath withdrew during attempted advancement of the biopsy catheter. The 10 Brazilian venous sheath was then withdrawn into the intrahepatic IVC. The middle hepatic vein was selected with the same 5 Brazilian catheter which was then exchanged over an Amplatz wire for the 10 Brazilian venous sheath. The 10 Brazilian transvenous biopsy catheter was then advanced into the middle hepatic venous sheath and deployed twice for liver biopsy. The transvenous biopsy catheter and a 10 Brazilian venous sheath were removed. Satisfactory hemostasis was [...] pressures and increased portosystemic gradient. MACRO: None RADIOLOGY Erica Rock MD - 01/21/2023 EXAMINATION: XA TRANSJUGULAR LIVER BIOPSY (CHRISTIANO), XA HEPATIC VENOGRAM W/ HEMODYN (CHRISTIANO) 01/20/2023 10:46 AM CLINICAL HISTORY: Rad Procedure required: = Transjugular liver biopsy with portal pressure measurements,Suspecte d liver fibrosis ASSOCIATED DIAGNOSIS: Alcoholic fatty liver Hyperbilirubinemia Alcoholic hepatitis, unspecified whether ascites present ORDERING PROVIDER: HALEY GARY [employer]OLOGISTS NOTE: Right atrium: 14, pre hepatic: 18, wedged hepatic: 32. Moderate sedation intraservice time [phone] FLUOROSCOPIST: ERICA ROCK TIME: 41.6 Minutes ATTENDING [...] microaccess catheter under fluoroscopic guidance. A 10 Brazilian curved tip renal vein sheath was then advanced over the wire into the right atrium. The obturator was removed and a 5 Brazilian MPB catheter was used to select the [...] vein was again selected with a 5 Brazilian MPB catheter which was then exchanged over an Amplatz wire for the 10 Brazilian venous sheath. This was repeated several times for attempted transvenous liver biopsy through the right hepatic vein; however, the 10 Brazilian sheath withdrew during attempted advancement of the biopsy catheter. The 10 Brazilian venous sheath was then withdrawn into the intrahepatic IVC. The middle hepatic vein was selected with the same 5 Brazilian catheter which was then exchanged over an Amplatz wire for the 10 Brazilian venous sheath. The 10 Brazilian transvenous biopsy catheter was then advanced into the middle hepatic venous sheath and deployed twice for liver biopsy. The transvenous biopsy catheter and a 10 Brazilian venous sheath were removed. Satisfactory hemostasis was [...] pressures and increased portosystemic gradient. MACRO: None [facility] No Panel Informationon 01-20 Radiology Study observation (narrative) [facility] PROTHROMBIN TIME AND INRon 0 01-20-2023 INR Coag (PPP) [Relative time] 2.49 {INR} High 0.90 - 1.10 [facility] Interpretation and review of laboratory results Abnormal [facility] PT Coag (PPP) [Time] 27.9 s High [facility] Basic metabolic 2000 panelon 01-12-2023 Anion gap [...] (S/P/Bld) [Vol rate/Area] 127 mL/min/{1.73_m2} - PINF [facility] Comment on above: 2020 CKD EPI Equatio n using Creatinine without Race Comment: Estimated glomerular filtration rate (eGFR) is calculated without a race coefficient. Values should be interpreted in the context of the patient's full clinical presentation. Reference: 1. Fran C, Akhil Green, [place] SAGASTUME, et al.. A Unifying Approach for GFR Estimation: Recommendations of the NKF-ASN Task Force on Reassessing the Inclusion of Race in Diagnosing Kidney Disease. [place] Journal of Kidney Diseases 2021;79(2):268-88.e1. 2. N Engl J Med 2020 Vol. 385 Issue 19 Pages 2670-2373 Glucose [Mass/Vol] 82 mg/dL 68 - 110 mg/dL [facility] Potassium [Moles/Vol] 3.5 mmol/L 3.3 - 5.3 mmol/L [facility] Sodium [Moles/Vol] 139 mmol/L 135 - 148 mmol/L [facility] Urea nitrogen [Mass/Vol] 4 mg/dL Low 8 - 22 mg/dL [facility] C-PEPTIDE, SERUMon C peptide [Mass/Vol] 3.52 ng/mL 0.81 - 3.85 ng/ mL [facility] Interpretation and review of laboratory results Normal [facility] CBC panel Auto (Bld)on 01-12 Erythrocyte distribution width (RBC) [Ratio] 15.7 % High 11.5 - 14.5 % [facility] Hematocrit (Bld) [Volume fraction] 35.4 % Low 41.0 - 53.0 % [facility] Hemoglobin (Bld) [Mass/Vol] 12.1 g/dL Low 13.9 - 16.3 g/dL [facility] Interpretation and review of laboratory results Abnormal [facility] MCH (RBC) [Entitic mass] 36.7 pg High 26.0 - 34.0 pg [facility] MCHC (RBC) [Mass/Vol] 34.3 g/dL 32.0 - 35.9 g/dL [facility] MCV (RBC) [Entitic vol] 107 fL High 80 - 100 fL [facility] Platelet mean volume (Bld) [Entitic vol] 8.3 fL 7.5 - 11.2 fL [facility] Platelets (Bld) [#/Vol] 110 10*3/uL Low 150 - 400 K/uL [facility] RBC (Bld) [#/Vol] 3.31 10*6/uL Low [facility] WBC (Bld) [#/Vol] 6.6 10*3/uL 4.5 - 11.5 K/uL [facility] Diabetes tracking panelOrder ed By: Moi Christianson on 01-12-2023 Average glucose Estimated from glycated hemoglobin (Bld) [Mass/Vol] 82 mg/dL [facility] HbA1c (Bld) [Mass fraction] 4.5 % 4.0 - 5.6 % [facility] HEPATIC FUNCTION PANELon Albumin [Mass/Vol] 3.2 g/dL Low 3.4 - 5.1 g/dL [facility] ALP [Catalytic activity/Vol] 336 U/L High [facility] ALT [Catalytic activity/Vol] 43 U/L High [facility] AST [Catalytic activity/Vol] 73 U/L High [facility] Bilirubin [Mass/Vol] 8.2 mg/dL High 0.1 - 1.5 mg/dL [facility] Bilirubin.direct [Mass/Vol] 2.28 mg/dL High 0.10 - 0.30 mg/dL [facility] Protein [Mass/Vol] 7.9 g/dL 6.2 - 8.3 g/dL [facility] INSULINon 01-12-2023 Insulin Free Qn 38.9 High [facility] Interpretation and review of laboratory results Abnormal [facility] No Panel Informationon 01-12 Interpretation and review of laboratory results Abnormal [facility] PROTHROMBIN TIME AND INRon 0 01-12-2023 INR Coag (PPP) [Relative time] 1.87 {INR} High 0.90 - 1.10 [facility] Interpretation and review of laboratory results Abnormal [facility] PT Coag (PPP) [Time] 21.0 s High [facility] ALPHA FETOPROTEIN TUMOR ANDRIA Jeri 11-13-2022 AFP 4.4 ng/mL NINF - 8.4 ng/mL [facility] Interpretation and review of laboratory results Normal [facility] Basic metabolic 2000 panelon 11-13-2022 Anion gap [Moles/Vol] 10 mmol/L 10 - 20 [facility] Calcium [Mass/Vol] 8.7 mg/dL 8.4 - 10.4 mg/dL [facility] Chloride [Moles/Vol] 102 mmol/L 97 - 111 mmol/L [facility] CO2 [Moles/Vol] 30 mmol/L 21 - 30 mmol/L [facility] Creatinine [Mass/Vol] 0.50 mg/dL Low 0.80 - 1.30 mg/dL [facility] GFR/1.73 sq M.predicted MDRD (S/P/Bld) [Vol rate/Area] 134 mL/min/{1.73_m2} - PINF [facility] Comment on above: 2020 CKD EPI Equatio [...] Inclusion of Race in Diagnosing Kidney Disease. [place] Journal of Kidney Diseases 202;79(2):268-88.e1. 2. N Engl J Med 2020 Vol. 385 Issue 19 Pages 4851-9470 Glucose [Mass/Vol] 70 mg/dL 68 - 110 mg/dL [facility] Potassium [Moles/Vol] 3.1 mmol/L Low 3.3 - 5.3 mmol/L [facility] Sodium [Moles/Vol] 139 mmol/L 135 - 148 mmol/L [facility] Urea nitrogen [Mass/Vol] 5 mg/dL Low 8 - 22 mg/dL [facility] CBC WITH DIFFERENTIALon 03-0 Basophils (Bld) [#/Vol] 0.04 10*3/uL 0.00 - [...] 21.2 % Low 24.0 - 44.0 % [facility] MCH (RBC) [Entitic mass] 38.5 pg High 26.0 - 34.0 pg [facility] MCHC (RBC) [Mass/Vol] 35.3 g/dL 32.0 - 35.9 g/dL [facility] MCV (RBC) [Entitic vol] 109 fL High 80 - 100 fL [facility] Monocyte distribution width Auto (Bld) [Entitic vol] [facility] Monocytes (Bld) [#/Vol] 0.65 10*3/uL 0.20 - 1.00 K/uL [facility] Monocytes/100 WBC (Bld) 11.4 % High 2.0 - 11.0 % [facility] Neutrophils (Bld) [#/Vol] 3.63 10*3/uL 1.50 - 8.00 K/uL [facility] Neutrophils/100 WBC (Bld) 63.2 % 31.0 - 76.0 % [facility] Platelet mean volume (Bld) [Entitic vol] 8.2 fL 7.5 - 11.2 fL [facility] Platelets (Bld) [#/Vol] 82 10*3/uL Low 150 - 400 K/uL [facility] RBC (Bld) [#/Vol] 2.69 10*6/uL Low [facility] WBC (Bld) [#/Vol] 5.7 10*3/uL 4.5 - 11.5 K/uL [facility] DIRECT ANTIGLOBULIN TESTon 0 11-13-2022 Direct antiglobulin test.poly specific reagent Ql (RBC) Negative [facility] HAPTOGLOBINon 11-13-2022 Haptoglobin [Mass/Vol] mg/dL Low 36 - 220 mg/dL [facility] Interpretation and review of laboratory results Abnormal [facility] HEPATIC FUNCTION PANELon Albumin [Mass/Vol] 2.9 g/dL Low 3.4 - 5.1 g/dL [facility] ALP [Catalytic activity/Vol] 386 U/L High [facility] ALT [Catalytic activity/Vol] 36 U/L [facility] AST [Catalytic activity/Vol] 68 U/L [facility] Bilirubin [Mass/Vol] 6.9 mg/dL High 0.1 - 1.5 mg/dL [facility] Bilirubin.direct [Mass/Vol] 1.88 mg/dL High 0.10 - 0.30 mg/dL [facility] Protein [Mass/Vol] 7.0 g/dL 6.2 - 8.3 g/dL [facility] LDHon 11-13-2022 LDH [Catalytic activity/Vol] 255 U/L High [facility] No Panel Informationon 11-13 Interpretation and review of laboratory results Abnormal [facility] Interpretation and review of laboratory results Abnormal [facility] PROTHROMBIN TIME AND INRon 0 11-13-2022 INR Coag (PPP) [Relative time] 1.71 {INR} High 0.90 - 1.10 [facility] Interpretation and review of laboratory results Abnormal [facility] PT Coag (PPP) [Time] 19.2 s High [facility] RETICULOCYTE COUNTon 023 Immature reticulocytes/Total reticulocytes (Bld) 0.45 % 0.30 - 0.50 [facility] Reticulocytes (Bld) [#/Vol] 0.09 10*3/uL High [facility] Reticulocytes/100 RBC (Bld) 3.3 % High 0.5 - 1.5 % [facility] SMOOTH MUSC ATB SCRN & TITRO rdered By: Juan Luis Ferguson on 08-26-2022 Interpretation and review of laboratory results Normal [facility] Work Phone: Smooth muscle Ab Ql (S) Negative Negative [facility] Work Phone: Negative SMA test does not exclude the possibility of chronic liver disease. . I certify that I personally conducted the diagnostic evaluation of the above specimen(s) and have rendered the final diagnosis(es). [facility] Work Phone: [facility] Work Phone: Basic metabolic 2000 panelon 08-25-2022 [...] Inclusion of Race in Diagnosing Kidney Disease. [place] Journal of Kidney Diseases 202;79(2):268-88.e1. 2. N Engl J Med 2020 Vol. 385 Issue 19 Pages 3413-0350 Glucose [Mass/Vol] 55 mg/dL Low 68 - [...] 3.0 g/dL Low 3.4 - 5.1 g/dL [facility] ALP [Catalytic activity/Vol] 389 U/L High [facility] ALT [Catalytic activity/Vol] 56 U/L [facility] AST [Catalytic activity/Vol] 103 U/L [facility] Bilirubin [Mass/Vol] 7.7 mg/dL High 0.1 - 1.5 mg/dL [facility] Bilirubin.direct [Mass/Vol] 2.20 mg/dL High 0.10 - 0.30 mg/dL [facility] Iron [Mass/Vol] 237 ug/dL High 45 - 160 ug/dL [facility] Iron binding capacity [Mass/Vol] 248 ug/mL Low 250 - 410 ug/mL [facility] Iron saturation [Mass fraction] 96 % High 20 - 55 % [facility] Protein [Mass/Vol] 7.2 g/dL 6.2 - 8.3 g/dL [facility] Trans[facility] [Mass/Vol] 177 mg/dL Low 210 - 375 mg/dL [facility] Laboratory - Serology - non- microon 08-25-2022 Immune complex.IgG [Mass/Vol] 1995 mg/dL High 768 - 1632 mg/dL [facility] No Panel Informationon 08-25 Interpretation and review of laboratory results Abnormal [facility] Interpretation and review of laboratory results Abnormal [facility] Interpretation and review of laboratory results Abnormal [facility] XR Knee - right Viewson 0 EXAMINATION: XR KNEE RT ANY 4 OR MORE VIEWSPRO/RT 08/15/2022 02:28 PM CLINICAL HISTORY: Reason for Exam: knee pain, limited gait ASSOCIATED DIAGNOSIS: ORDERING PROVIDER: DANTE FRENCH TECHNOLOGISTS NOTE: COMPARISON: None FINDINGS: No acute [...] limited gait ASSOCIATED DIAGNOSIS: ORDERING PROVIDER: DANTE FRENCH TECHNOLOGISTS NOTE: COMPARISON: None FINDINGS: No acute [...] the calcaneus anteriorly. Right knee MACRO: None [facility] Radiology Study observation (narrative) [facility] XR Knee - right ViewsOrdered By: Colby Mcintosh on 08-15-2022 [facility] Work Phone: Basic metabolic 2000 panelon 08-14-2022 Anion gap [Moles/Vol] 14 mmol/L 10 - 20 [facility] Calcium [Mass/Vol] 7.9 mg/dL Low 8.4 - 10.4 mg/dL [facility] Chloride [Moles/Vol] 97 mmol/L 97 - 111 mmol/L [facility] CO2 [Moles/Vol] 24 mmol/L 21 - 30 mmol/L [facility] Creatinine [Mass/Vol] 0.55 mg/dL Low 0.80 - 1.30 mg/dL [facility] GFR/1.73 sq M.predicted MDRD (S/P/Bld) [Vol rate/Area] 131 mL/min/{1.73_m2} - PINF [facility] Comment on above: 2020 CKD EPI [...] Inclusion of Race in Diagnosing Kidney Disease. [place] Journal of Kidney Diseases 202;79(2):268-88.e1. 2. N Engl J Med 1 Vol. 385 Issue 19 Pages 5209-7536 Glucose [Mass/Vol] 89 mg/dL 68 - 110 mg/dL [facility] Potassium [Moles/Vol] 3.0 mmol/L Low 3.3 - 5.3 mmol/L [facility] Sodium [Moles/Vol] 132 mmol/L Low 135 - 148 mmol/L [facility] Urea nitrogen [Mass/Vol] 5 mg/dL Low 8 - 22 mg/dL [facility] Laboratory - Chemistry and C hemistry - challengeon 08-14-2022 Urate [Mass/Vol] 1.9 mg/dL Low 2.0 - 7.3 mg/dL [facility] Albumin [Mass/Vol] 2.9 g/dL Low 3.4 - 5.1 g/dL [facility] ALP [Catalytic activity/Vol] 245 U/L High [facility] ALT [Catalytic activity/Vol] 47 U/L High [facility] AST [Catalytic activity/Vol] 96 U/L High [facility] Bilirubin [Mass/Vol] 10.6 mg/dL High 0.1 - 1.5 mg/dL [facility] Comment on above: Elevated bilirubin m ay falsely lower creatinine Bilirubin.direct [Mass/Vol] 2.83 mg/dL High 0.10 - 0.30 mg/dL [facility] LDH [Catalytic activity/Vol] 260 U/L High [facility] Protein [Mass/Vol] 6.4 g/dL 6.2 - 8.3 g/dL [facility] Creatinine (U) [Mass/Vol] 57 mg/dL 10 - 300 mg/dL [facility] Protein/Creatinine (U) [Mass ratio] 123 mg/g NINF - 164 mg/g [facility] Bilirubin Ql (U) Positive Abnormal Negative [facility] Ketones Ql (U) Negative Negative mg/dL [facility] ealt pH (U) 7.0 [pH] 5.0 - 8.0 [facility] Specific gravity (U) [Rel density] Low 1.005 - 1.030 [facility] Urobilinogen Qn (U) >=8.0 Abnormal 0.2 - 1.0 mg/dL [facility] Laboratory - Hematology and Cell countson 08-14-2022 Cells Counted Total (Bld) [#] 100 {cells} [facility] Eosinophils (Bld) [#/Vol] 0.09 10*3/uL 0.00 - [...] 9.2 10*3/uL 4.5 - 11.5 K/uL [facility] - Specimen inform ationon 08-14-2022 Appearance (U) Clear Clear [facility] Color (U) Light Yellow Yellow [facility] Laboratory - Urinalysison Protein (U) [Mass/Vol] 7 mg/dL NINF - 100 mg/dL [facility] Bacteria LM.HPF (Urine sed) [#/Area] Few /HPF [facility] Glucose Auto test strip (U) [Mass/Vol] Negative Negative mg/dL [facility] Leukocyte esterase Test strip Ql (U) Moderate Abnormal Negative Svitlana/uL [facility] Nitrite Ql (U) Negative Negative [facility] Protein (U) [Mass/Vol] Negative Negative mg/dL [facility] WBC (U) [#/Vol] 0-2 [facility] WBC LM.HPF (Urine sed) [#/Area] 6-10 Abnormal [facility] No Panel InformationOrdered By: Tayla Strickland on 08-14-2022 Interpretation and review of laboratory results Abnormal [facility] No Panel Informationon 08-14 Interpretation and review of laboratory results Abnormal [facility] Interpretation and review of laboratory results Abnormal [facility] Interpretation and review of laboratory results Normal [facility] Interpretation and review of laboratory results Abnormal [facility] A negative leukocyte esterase AND negative [...] (positive predictive value for UTI around 50%) [facility] US.doppler Lower extremity v ein - righton [...] extremity deep venous thrombosis identified. MACRO: None [facility] Radiology Study observation (narrative) [facility] US.doppler Lower extremity v ein - rightOrdered By: Enrique Basurto on 08-14-2022 [facility] Work Phone: Basic metabolic 2000 panelon 05-06-2022 Anion gap [Moles/Vol] 11 mmol/L 10 - 20 [facility] Calcium [Mass/Vol] 8.9 mg/dL 8.4 - 10.4 mg/dL [facility] Chloride [Moles/Vol] 105 mmol/L 97 - 111 mmol/L [facility] CO2 [Moles/Vol] 25 mmol/L 21 - 30 mmol/L [facility] Creatinine [Mass/Vol] 0.58 mg/dL Low 0.8 - 1.3 mg/dL [facility] Comment on above: Grossly icteric; may falsely decrease creatinine GFR/1.73 sq M.predicted MDRD (S/P/Bld) [Vol rate/Area] 129 mL/min/{1.73_m2} - PINF [facility] Comment on above: 2020 CKD EPI [...] Inclusion of Race in Diagnosing Kidney Disease. [place] Journal of Kidney Diseases 202;79(2):268-88.e1. 2. N Engl J Med 1 Vol. 385 Issue 19 Pages 3290-8001 Glucose [Mass/Vol] 79 mg/dL 68 - 110 mg/dL [facility] Interpretation and review [...] vol] 7.9 fL 7.5 - 11.2 fL [facility] Platelets (Bld) [#/Vol] 90 10*3/uL Low 150 - 400 K/uL [facility] RBC (Bld) [#/Vol] 3.21 10*6/uL Low [facility] WBC (Bld) [#/Vol] 4.2 10*3/uL Low 4.5 - 11.5 K/uL [facility] HAPTOGLOBINon 05-06-2022 Haptoglobin [Mass/Vol] mg/dL Low 36 - 220 mg/dL [facility] Interpretation and review of laboratory results Abnormal [facility] HEPATIC FUNCTION PANELon Albumin [Mass/Vol] 3.0 g/dL Low 3.4 - 5.1 g/dL [facility] ALP [Catalytic activity/Vol] 373 U/L High [facility] ALT [Catalytic activity/Vol] 47 U/L High [facility] AST [Catalytic activity/Vol] 87 U/L High [facility] Bilirubin [Mass/Vol] 8.3 mg/dL High 0.1 - 1.5 mg/dL [facility] Bilirubin.direct [Mass/Vol] 1.50 mg/dL High 0.1 - 0.3 mg/dL [facility] Protein [Mass/Vol] 6.7 g/dL 6.2 - 8.3 g/dL [facility] LDHon 05-06-2022 LDH [Catalytic activity/Vol] 270 U/L High [facility] No Panel Informationon 05-06 Interpretation and review of laboratory results Abnormal [facility] URIC ACIDon 05-06-2022 Interpretation and review of laboratory results Normal [facility] Urate [Mass/Vol] 3.2 mg/dL 2 - 7.3 mg/dL [facility] Basic metabolic 2000 panelon 03-13-2022 Anion gap [Moles/Vol] 11 mmol/L [facility] Calcium [Mass/Vol] 8.2 mg/dL Low 8.4 - 10.4 mg/dL [facility] Chloride [Moles/Vol] 103 mmol/L 97 - 111 mmol/L [facility] CO2 [Moles/Vol] 25 mmol/L 21 - 30 mmol/L [facility] Creatinine [Mass/Vol] 0.51 mg/dL Low 0.80 - 1.30 mg/dL [facility] Comment on above: Grossly icteric; may falsely decrease creatinine GFR/1.73 sq M.predicted MDRD (S/P/Bld) [Vol rate/Area] 134 mL/min/{1.73_m2} >=60 mL/min/1.73sqm [facility] Comment on above: 2020 CKD EPI Equatio [...] Inclusion of Race in Diagnosing Kidney Disease. [place] Journal of Kidney Diseases 2021;79(2):268-88.e1. 2. N Engl J Med 2020 Vol. 385 Issue 19 Pages 4697-3995 Glucose [Mass/Vol] 119 mg/dL High 68 - 110 mg/dL [facility] Interpretation and review of laboratory results Abnormal [facility] Potassium [Moles/Vol] 3.6 mmol/L 3.3 - 5.3 mmol/L [facility] Sodium [Moles/Vol] 135 mmol/L 135 - 148 mmol/L [facility] Urea nitrogen [Mass/Vol] 3 mg/dL Low 8 - 22 mg/dL [facility] CBC WITH DIFFERENTIALon 07-0 Basophils [...] 2.6 g/dL Low 3.4 - 5.1 g/dL [facility] ALP [Catalytic activity/Vol] 278 U/L High [facility] ALT [Catalytic activity/Vol] 33 U/L [facility] AST [Catalytic activity/Vol] 68 U/L High [facility] Bilirubin [Mass/Vol] 5.6 mg/dL High 0.1 - 1.5 mg/dL [facility] Bilirubin.direct [Mass/Vol] 1.20 mg/dL High 0.10 - 0.30 mg/dL [facility] LDH [Catalytic activity/Vol] 258 U/L High [facility] Protein [Mass/Vol] 6.2 g/dL 6.2 - 8.3 g/dL [facility] Urate [Mass/Vol] 3.0 mg/dL 2.0 - 7.3 mg/dL [facility] Laboratory - Hematology and Cell countson 03-13-2022 Haptoglobin [Mass/Vol] mg/dL Low 36 - 220 mg/dL [facility] No Panel Informationon 03-13 Interpretation and review of laboratory results Abnormal [facility] Interpretation and review of laboratory results Abnormal [facility] Interpretation and review of laboratory results Normal [facility] CHEMISTRYOrdered By: SYSTEM SYSTEM on 02-17-2022 Lactate [Mass/Vol] 1.8 mmol/L Normal 0.5 - 2.2 mmol/L [facility] Albumin [Mass/Vol] 2.8 g/dL Low 3.3 - 5.0 gm/dL [facility] [place] Remisol Albumin/Globulin [Mass ratio] 0.7 {ratio} Low [...] 0.5 mg/dL Normal 0.5 - 1.3 mg/dL [facility] GFR/1.73 sq M.predicted among blacks MDRD (S/P/Bld) [Vol rate/Area] mL/min/1.73 m2 Normal >=59mL/min/1.73 m2 [facility] [place] [facility] Chem S GFR/1.73 sq M.predicted among non-blacks MDRD (S/P/Bld) [Vol rate/Area] mL/min/1.73 m2 Normal >=59mL/min/1.73 m2 [facility] Chem S Globulin (S) [Mass/Vol] 3.9 g/dL Normal 1.4 - 4.0 gm/dL [facility] [place] Remisol Glucose [Mass/Vol] 123 mg/dL Normal 55 - 199 mg/dL [facility] Lipase [Catalytic activity/Vol] 68 U/L High 13 - 58 unit/L [facility] Potassium [Moles/Vol] 3.2 mmol/L Low 3.5 - 5.3 mmol/L [facility] Protein [Mass/Vol] 6.7 g/dL Normal 6.0 - 7.8 gm/dL [facility] Remisol Sodium [Moles/Vol] 133 mmol/L Low 135 - 145 mmol/L [facility] [place] Remisol Urea nitrogen [Mass/Vol] 6 mg/dL Normal 5 - 21 mg/dL [facility] Urea nitrogen/Creatinine [Mass ratio] 12 mg/mg Normal 10 - 20 [facility] [place] Remisol CHEMISTRYOrdered By: Trista Root on 02-17-2022 Natriuretic peptide B (Bld) [Mass/Vol] 142 pg/mL High 5 - 80 pg/mL [facility] [place] HemeManSS HEMATOLOGYOrdered By: SYSTEM SYSTEM on 02-17-2022 Basophils/100 WBC (Bld) 0.9 % Normal 0.0 - 2.0 % [facility] [place] HemeAutoSS Basophils/Leukocytes Auto (Bld) [Pure # fraction] [...] 4.9 E9/L Normal 4.0 - 11.0 E9/L [facility] [place] HemeAutoSS URINALYSISOrdered By: Heladio Barnett on 02-17-2022 Bilirubin Ql (U) Negative (02/17/22 1:14 PM) Normal Negative [facility] UA Auto SS Clarity (U) Clear (02/17/22 1:14 PM) Normal Clear [facility] UA Auto SS Color (U) Yellow (02/17/22 1:14 PM) Normal Yellow [facility] UA Auto SS Epithelial cells.squamous LM.HPF (Urine sed) [#/Area] 0-2 /HPF Normal 0-2/HPF [facility]A Auto SS Glucose Test strip (U) [Mass/Vol] Negative (02/17/22 1:14 PM) Normal Negative [facility] UA Auto SS Hemoglobin Ql (U) Negative (02/17/22 1:14 PM) Normal Negative [facility] UA Auto SS Ketones (U) [Mass/Vol] Negative (02/17/22 1:14 PM) Normal Negative [facility] UA Auto SS Pax.plasma/Lithi um.RBC (Bld) [Mass ratio] 0-3 /HPF Normal [...] [facility] UA Auto SS Urobilinogen Qn (U) [id number] {Alexey'U}/dL Normal 0.0 - 1.0 EU/dL [facility] UA Auto SS WBC Auto Ql (U) Negative (02/17/22 1:14 PM) Normal Negative [facility] [place] UA Auto SS WBC LM.HPF (Urine sed) [#/Area] 0-5 /HPF Normal 0-5/HPF [facility] UA Auto SS Basic metabolic 2000 panelon 02-11-2022 Anion gap [Moles/Vol] 10 mmol/L [facility] Calcium [Mass/Vol] 8.2 mg/dL Low 8.4 - 10.4 mg/dL [facility] Chloride [Moles/Vol] 103 mmol/L 97 - 111 mmol/L [facility] CO2 [Moles/Vol] 24 mmol/L 21 - 30 mmol/L [facility] Creatinine [Mass/Vol] 0.49 mg/dL Low 0.80 - 1.30 mg/dL [facility] Comment on above: Grossly icteric; may falsely decrease creatinine GFR/1.73 sq M.predicted MDRD (S/P/Bld) [Vol rate/Area] 136 mL/min/{1.73_m2} >=60 mL/min/1.73sqm [facility] Comment on above: 2020 CKD EPI Equatio [...] Inclusion of Race in Diagnosing Kidney Disease. [place] Journal of Kidney Diseases 2022;79(2):268-88.e1. 2. N Engl J Med 1 Vol. 385 Issue 19 Pages 6949-9060 Glucose [Mass/Vol] 105 mg/dL 68 - 110 mg/dL [facility] Interpretation and review of laboratory results Abnormal [facility] Potassium [Moles/Vol] 3.3 mmol/L 3.3 - 5.3 mmol/L [facility] Sodium [Moles/Vol] 134 mmol/L Low 135 - 148 mmol/L [facility] Urea nitrogen [Mass/Vol] 7 mg/dL Low 8 - 22 mg/dL [facility] CBC WITH DIFFERENTIALOrdered By: Ami Brock on 02-11-2022 Erythrocyte distribution width (RBC) [Ratio] 17.1 % High 11.5 - 14.5 % [facility] Hematocrit (Bld) [Volume fraction] 29.1 % Low 41.0 - 53.0 % [facility] Hemoglobin (Bld) [Mass/Vol] 10.0 g/dL Low 13.9 - 16.3 g/dL [facility] MCH (RBC) [Entitic mass] 37.3 pg High 26.0 - 34.0 pg [facility] MCHC (RBC) [Mass/Vol] 34.5 g/dL 32.0 - 35.9 g/dL [facility] MCV (RBC) [Entitic vol] 108 fL High 80 - 100 fL [facility] Monocyte distribution width Auto (Bld) [Entitic vol] [facility] Platelet mean volume (Bld) [Entitic vol] 7.2 fL Low 7.5 - 11.2 fL [facility] Platelets (Bld) [#/Vol] 81 10*3/uL Low 150 - 400 K/uL [facility] RBC (Bld) [#/Vol] 2.69 10*6/uL Low [facility] WBC (Bld) [#/Vol] 4.9 10*3/uL 4.5 - 11.5 K/uL [facility] HAPTOGLOBINon 02-11-2022 Haptoglobin [Mass/Vol] mg/dL Low 36 - 220 mg/dL [facility] Interpretation and review of laboratory results Abnormal [facility] L[facility] 02-11-2022 LDH [Catalytic activity/Vol] 321 U/L High [facility] Laboratory - Chemistry and C hemistry - challengeon 02-11-2022 Albumin [Mass/Vol] 2.8 g/dL Low 3.4 - 5.1 g/dL [facility] ALP [Catalytic activity/Vol] 226 U/L High [facility] ALT [Catalytic activity/Vol] 77 U/L High [facility] AST [Catalytic activity/Vol] 88 U/L High [facility] Bilirubin [Mass/Vol] 7.7 mg/dL High 0.1 - 1.5 mg/dL [facility] Bilirubin.direct [Mass/Vol] 1.70 mg/dL High 0.10 - 0.30 mg/dL [facility] Protein [Mass/Vol] 6.2 g/dL 6.2 - 8.3 g/dL [facility] MANUAL DIFF AND MORPHon Anisocytosis Ql (Bld) Slight [facility] Band form [...] Interpretation and review of laboratory results Abnormal [facility] No Panel Informationon 02-11 Interpretation and review of laboratory results Abnormal [facility] RETICULOCYTE COUNTOrdered By : Kennedi Fuentes [...] [Mass/Vol] 84 mg/dL 68 - 110 mg/dL [facility] Potassium [Moles/Vol] 3.8 mmol/L 3.3 - 5.3 mmol/L [facility] Sodium [Moles/Vol] 131 mmol/L Low 135 - 148 mmol/L [facility] Urea nitrogen [Mass/Vol] 8 mg/dL 8 - 22 mg/dL [facility] CBC panel Auto (Bld)Ordered By: Isak Mitchell [...] vol] 9.2 fL 7.5 - 11.2 fL [facility] Platelets (Bld) [#/Vol] 96 10*3/uL Low 150 - 400 K/[facility]L [facility] RBC (Bld) [#/Vol] 2.09 10*6/uL Low [facility] WBC (Bld) [#/Vol] 9.5 10*3/uL 4.5 - 11.5 K/uL [facility] FINGERSTICK-IN OFFI CEon 01-17-2022 Glucose [Mass/Vol] 188 mg/dL High 68 - 110 mg/dL [facility] Interpretation and review of laboratory results Abnormal [facility] HAPTOGLOBINon 01-17-2022 Haptoglobin [Mass/Vol] mg/dL Low 36 - 220 mg/dL [facility] Interpretation and review of laboratory results Abnormal [facility] HEPATIC FUNCTION PANELon Albumin [Mass/Vol] 2.8 g/dL Low 3.4 - 5.1 g/dL [facility] ALP [Catalytic activity/Vol] 133 U/L [facility] ALT [Catalytic activity/Vol] 75 U/L High [facility] AST [Catalytic activity/Vol] 94 U/L High [facility] Bilirubin [Mass/Vol] 12.6 mg/dL High 0.1 - 1.5 mg/dL [facility] Bilirubin.direct [Mass/Vol] 2.40 mg/dL High 0.10 - 0.30 mg/dL [facility] Protein [Mass/Vol] 6.7 g/dL 6.2 - 8.3 g/dL [facility] LDHon 01-17-2022 LDH [Catalytic activity/Vol] 514 U/L High [facility] No Panel Informationon 01-17 Interpretation and review of laboratory results Abnormal [facility] PROTHROMBIN TIME AND INRon 0 01-17-2022 INR Coag (PPP) [Relative time] 1.97 {INR} High [facility] Interpretation and review of laboratory results Abnormal [facility] PT Coag (PPP) [Time] 22.1 s High [facility] RETICULOCYTE COUNTon 022 Immature reticulocytes/Total reticulocytes (Bld) 0.61 % High [facility] Interpretation and review of laboratory results Abnormal [facility] Reticulocytes (Bld) [#/Vol] 0.14 10*3/uL High [facility] Reticulocytes/100 RBC (Bld) 6.5 % High 0.5 - 1.5 % [facility] Basic metabolic 2000 panelon 01-16-2022 Anion gap [Moles/Vol] 14 mmol/L [facility] Calcium [Mass/Vol] 8.3 mg/dL Low 8.4 - 10.4 mg/dL [facility] Chloride [Moles/Vol] 98 mmol/L 97 - 111 mmol/L [facility] CO2 [Moles/Vol] 24 mmol/L 21 - 30 mmol/L [facility] Creatinine [Mass/Vol] 0.42 mg/dL Low 0.80 - 1.30 mg/dL [facility] GFR/1.73 sq M.predicted MDRD (S/P/Bld) [Vol rate/Area] 142 mL/min/{1.73_m2} >=60 mL/min/1.73sqm [facility] Glucose [Mass/Vol] 102 mg/dL 68 - 110 mg/dL [facility] Potassium [Moles/Vol] 3.7 mmol/L 3.3 - 5.3 mmol/L [facility] Sodium [Moles/Vol] 132 mmol/L Low 135 - 148 mmol/L [facility] Urea nitrogen [Mass/Vol] 9 mg/dL 8 - 22 mg/dL [facility] CBC panel Auto (Bld)on 01-16 Erythrocyte distribution width (RBC) [Ratio] 23.7 % High 11.5 - 14.5 % [facility] Hematocrit (Bld) [Volume fraction] 21.6 % Low 41.0 - 53.0 % [facility] Hemoglobin (Bld) [Mass/Vol] 7.4 g/dL Low 13.9 - 16.3 g/dL [facility] Interpretation and review of laboratory results Abnormal [facility] MCH (RBC) [Entitic mass] 38.6 pg High 26.0 - 34.0 pg [facility] MCHC (RBC) [Mass/Vol] 34.4 g/dL 32.0 - 35.9 g/dL [facility] MCV (RBC) [Entitic vol] 112 fL High 80 - 100 fL [facility] Platelet mean volume (Bld) [Entitic vol] 9.3 fL 7.5 - 11.2 fL [facility] Platelets (Bld) [#/Vol] 94 10*3/uL Low 150 - 400 K/uL [facility] RBC (Bld) [#/Vol] 1.92 10*6/uL Low [facility] WBC (Bld) [#/Vol] 9.2 10*3/uL 4.5 - 11.5 K/uL [facility] GLUCOSE, FINGERSTICK-IN OFFI CEon 01-16-2022 Glucose [Mass/Vol] 145 mg/dL High 68 - 110 mg/dL [facility] Interpretation and review of laboratory results Abnormal [facility] Glucose [Mass/Vol] 247 mg/dL High 68 - 110 mg/dL [facility] Interpretation and review of laboratory results Abnormal [facility] Glucose [Mass/Vol] 132 mg/dL High 68 - 110 mg/dL [facility] Interpretation and review of laboratory results Abnormal [facility] Glucose [Mass/Vol] 90 mg/dL 68 - 110 mg/dL [facility] Interpretation and review of laboratory results Normal [facility] HAPTOGLOBINon 01-16-2022 Haptoglobin [Mass/Vol] mg/dL Low 36 - 220 mg/dL [facility] Interpretation and review of laboratory results Abnormal [facility] HEPATIC FUNCTION PANELon Albumin [Mass/Vol] 2.7 g/dL Low 3.4 - 5.1 g/dL [facility] ALP [Catalytic activity/Vol] 124 U/L [facility] ALT [Catalytic activity/Vol] 69 U/L High [facility] AST [Catalytic activity/Vol] 93 U/L High [facility] Bilirubin [Mass/Vol] 12.7 mg/dL High 0.1 - 1.5 mg/dL [facility] Bilirubin.direct [Mass/Vol] 2.30 mg/dL High 0.10 - 0.30 mg/dL [facility] Protein [Mass/Vol] 6.3 g/dL 6.2 - 8.3 g/dL [facility] LDHon 01-16-2022 LDH [Catalytic activity/Vol] 476 U/L High [facility] No Panel Informationon 01-16 Interpretation and review of laboratory results Abnormal [facility] PROTHROMBIN TIME AND INRon 0 01-16-2022 INR Coag (PPP) [Relative time] 2.08 {INR} High [facility] Interpretation and review of laboratory results Abnormal [facility] PT Coag (PPP) [Time] 23.3 s High [facility] Basic metabolic 2000 panelon 01-15-2022 Anion gap [Moles/Vol] 14 mmol/L [facility] Calcium [Mass/Vol] 7.9 mg/dL Low 8.4 - 10.4 mg/dL [facility] Chloride [Moles/Vol] 97 mmol/L 97 - 111 mmol/L [facility] CO2 [Moles/Vol] 25 mmol/L 21 - 30 mmol/L [facility] Creatinine [Mass/Vol] 0.42 mg/dL Low 0.80 - 1.30 mg/dL [facility] GFR/1.73 sq M.predicted MDRD (S/P/Bld) [Vol rate/Area] 142 mL/min/{1.73_m2} >=60 mL/min/1.73sqm [facility] Glucose [Mass/Vol] 112 mg/dL High 68 - 110 mg/dL [facility] Potassium [Moles/Vol] 3.5 mmol/L 3.3 - 5.3 mmol/L [facility] Sodium [Moles/Vol] 132 mmol/L Low 135 - 148 mmol/L [facility] Urea nitrogen [Mass/Vol] 8 mg/dL 8 - 22 mg/dL [facility] CBC panel Auto (Bld)on 01-15 Erythrocyte distribution width (RBC) [Ratio] 24.4 % High 11.5 - 14.5 % [facility] Hematocrit (Bld) [Volume fraction] 21.1 % Low 41.0 - 53.0 % [facility] Hemoglobin (Bld) [Mass/Vol] 7.3 g/dL Low 13.9 - 16.3 g/dL [facility] Interpretation and review of laboratory results Abnormal [facility] MCH (RBC) [Entitic mass] 38.7 pg High 26.0 - 34.0 pg [facility] MCHC (RBC) [Mass/Vol] 34.4 g/dL 32.0 - 35.9 g/dL [facility] MCV (RBC) [Entitic vol] 113 fL High 80 - 100 fL [facility] Platelet mean volume (Bld) [Entitic vol] 9.8 fL 7.5 - 11.2 fL [facility] Platelets (Bld) [#/Vol] 74 10*3/uL Low 150 - 400 K/uL [facility] RBC (Bld) [#/Vol] 1.88 10*6/uL Low [facility] WBC (Bld) [#/Vol] 8.9 10*3/uL 4.5 - 11.5 K/uL [facility] GLUCOSE, FINGERSTICK-IN OFFI CEon 01-15-2022 Glucose [Mass/Vol] 149 mg/dL High 68 - 110 mg/dL [facility] Interpretation and review of laboratory results Abnormal [facility] Glucose [Mass/Vol] 175 mg/dL High 68 - 110 mg/dL [facility] Interpretation and review of laboratory results Abnormal [facility] Glucose [Mass/Vol] 129 mg/dL High 68 - 110 mg/dL [facility] Interpretation and review of laboratory results Abnormal [facility] Glucose [Mass/Vol] 148 mg/dL High 68 - 110 mg/dL [facility] Interpretation and review of laboratory results Abnormal [facility] HAPTOGLOBINon 01-15-2022 Haptoglobin [Mass/Vol] mg/dL Low 36 - 220 mg/dL [facility] Interpretation and review of laboratory results Abnormal [facility] HEPATIC FUNCTION PANELon Albumin [Mass/Vol] 2.6 g/dL Low 3.4 - 5.1 g/dL [facility] ALP [Catalytic activity/Vol] 182 U/L [facility] ALT [Catalytic activity/Vol] 65 U/L High [facility] AST [Catalytic activity/Vol] 104 U/L High [facility] Bilirubin [Mass/Vol] 10.8 mg/dL High 0.1 - 1.5 mg/dL [facility] Bilirubin.direct [Mass/Vol] 2.10 mg/dL High 0.10 - 0.30 mg/dL [facility] Protein [Mass/Vol] 6.5 g/dL 6.2 - 8.3 g/dL [facility] LDHon 01-15-2022 LDH [Catalytic activity/Vol] 481 U/L High [facility] No Panel Informationon 01-15 Interpretation and review of laboratory results Abnormal [facility] PROTHROMBIN TIME AND INRon 0 01-15-2022 INR Coag (PPP) [Relative time] 1.89 {INR} High [facility] Interpretation and review of laboratory results Abnormal [facility] PT Coag (PPP) [Time] 21.2 s High [facility] Basic metabolic 2000 panelon 01-14-2022 [...] 136 mg/dL High 68 - 110 mg/dL [facility] Potassium [Moles/Vol] 3.4 mmol/L 3.3 [...] Monocyte distribution width Auto (Bld) [Entitic vol] [facility] Nucleated RBC (Bld) [#/Vol] 0.15 10*3/uL [facility] Nucleated RBC/100 WBC (Bld) [Ratio] 2.0 % [facility] Platelet mean volume (Bld) [Entitic vol] 9.4 fL 7.5 - 11.2 fL [facility] Platelets (Bld) [#/Vol] 65 10*3/uL Low 150 - 400 K/uL [facility] RBC (Bld) [#/Vol] 1.91 10*6/uL Low [facility] WBC (Bld) [#/Vol] 7.3 10*3/uL 4.5 - 11.5 K/uL [facility] FIBRINOGENOrdered By: Elvia Humphrey on 01-14-2022 Fibrin+Fibrinogen fragments (S) [Mass/Vol] 122 mg/dL Low 200 - 500 mg/dL [facility] Interpretation and review of laboratory results Abnormal [facility] GLUCOSE, FINGERSTICK-IN OFFI CEon 01-14-2022 Glucose [Mass/Vol] 139 mg/dL High 68 - 110 mg/dL [facility] Interpretation and review of laboratory results Abnormal [facility] Glucose [Mass/Vol] 203 mg/dL High 68 - 110 mg/dL [facility] Interpretation and review of laboratory results Abnormal [facility] Glucose [Mass/Vol] 143 mg/dL High 68 - 110 mg/dL [facility] Interpretation and review of laboratory results Abnormal [facility] Glucose [Mass/Vol] 154 mg/dL High 68 - 110 mg/dL [facility] Interpretation and review of laboratory results Abnormal [facility] HAPTOGLOBINon 01-14-2022 Haptoglobin [Mass/Vol] mg/dL Low 36 - 220 mg/dL [facility] Interpretation and review of laboratory results Abnormal [facility] HEPATIC FUNCTION PANELon Albumin [Mass/Vol] 2.6 g/dL Low 3.4 - 5.1 g/dL [facility] ALP [Catalytic activity/Vol] 177 U/L [facility] ALT [Catalytic activity/Vol] 62 U/L [facility] AST [Catalytic activity/Vol] 104 U/L High [facility] Bilirubin [Mass/Vol] 11.5 mg/dL High 0.1 - 1.5 mg/dL [facility] Bilirubin.direct [Mass/Vol] 2.20 mg/dL High 0.10 - 0.30 mg/dL [facility] Protein [Mass/Vol] 6.4 g/dL 6.2 - 8.3 g/dL [facility] LDHon 01-14-2022 LDH [Catalytic activity/Vol] 473 U/L High [facility] - Microbiology an d Antimicrobial susceptibilityon 01-14-2022 Bacteria identified Cx Nom (Bld) No Growth [facility] MANUAL DIFF AND MORPHon 01-05 Anisocytosis Ql (Bld) Marked [facility] Nursery cells LM Ql (Bld) Few [facility] Cells [...] Coag (PPP) [Time] 21.8 s High [facility] Basic metabolic 2000 [...] 130 mg/dL High 68 - 110 mg/dL [facility] Potassium [Moles/Vol] 3.4 mmol/L 3.3 - [...] 38.1 pg High 26.0 - 34.0 pg [facility] MCHC (RBC) [Mass/Vol] 34.7 g/dL 32.0 - 35.9 g/dL [facility] MCV (RBC) [Entitic vol] 110 fL High 80 - 100 fL [facility] Monocyte distribution width Auto (Bld) [Entitic vol] [facility] Nucleated RBC (Bld) [#/Vol] 0.22 10*3/uL [facility] Nucleated RBC/100 WBC (Bld) [Ratio] 3.0 % [facility] Platelet mean volume (Bld) [Entitic vol] 8.9 fL 7.5 - 11.2 fL [facility] Platelets (Bld) [#/Vol] 67 10*3/uL Low 150 - 400 K/uL [facility] RBC (Bld) [#/Vol] 1.76 10*6/uL Low [facility] WBC (Bld) [#/Vol] 7.3 10*3/uL 4.5 - 11.5 K/uL [facility] COPPERon 01-13-2022 Copper [Mass/Vol] [address] [facility] Interpretation and review of laboratory results Abnormal [facility] FACTOR VIII ASSAYOrdered By: Jozef Gibbons on 01-13-2022 Factor VIII Assay 356 % High 55 - 180 % [facility] Interpretation and review of laboratory results Abnormal [facility] GLUCOSE, FINGERSTICK-IN OFFI CEon 01-13-2022 Glucose [Mass/Vol] 185 mg/dL High 68 - 110 mg/dL [facility] Glucose [Mass/Vol] 226 mg/dL High 68 - 110 mg/dL [facility] Glucose [Mass/Vol] 152 mg/dL High 68 - 110 mg/dL [facility] Interpretation and review of laboratory results Abnormal [facility] Glucose [Mass/Vol] 140 mg/dL High 68 - 110 mg/dL [facility] Interpretation and review of laboratory results Abnormal [facility] HAPTOGLOBINon 01-13-2022 Haptoglobin [Mass/Vol] mg/dL Low 36 - 220 mg/dL [facility] Interpretation and review of laboratory results Abnormal [facility] HEPATIC FUNCTION PANELon Albumin [Mass/Vol] 2.6 g/dL Low 3.4 - 5.1 g/dL [facility] ALP [Catalytic activity/Vol] 169 U/L [facility] [...] Bands # 0.58 K/uL High <0.01 [facility] Nursery cells LM Ql (Bld) Few [facility] Cells [...] Interpretation and review of laboratory results Abnormal [facility] PROTHROMBIN TIME AND INRon 0 01-13-2022 INR Coag (PPP) [Relative time] 2.05 {INR} High [facility] Interpretation and review of laboratory results Abnormal [facility] PT Coag (PPP) [Time] 23.0 s High [facility] Basic metabolic 2000 panelon 01-12-2022 Anion gap [...] 147 mg/dL High 68 - 110 mg/dL [facility] Interpretation and review [...] g/dL Critically low 13.9 - 16.3 g/dL [facility] Interpretation and review of laboratory results [...] [facility] RBC (Bld) [#/Vol] 1.72 10*6/uL Low [facility] WBC (Bld) [#/Vol] 8.0 10*3/uL 4.5 - 11.5 K/uL [facility] GLUCOSE, FINGERSTICK-IN OFFI CEon 01-12-2022 Glucose [Mass/Vol] 140 mg/dL High 68 - 110 mg/dL [facility] Interpretation and review of laboratory results Abnormal [facility] Glucose [Mass/Vol] 157 mg/dL High 68 - 110 mg/dL [facility] Interpretation and review of laboratory results [facility]normal [facility] HAPTOGLOBINon 01-12-2022 Haptoglobin [Mass/Vol] mg/dL Low 36 - 220 mg/dL [facility] Interpretation and review of laboratory results Abnormal [facility] HEPATIC FUNCTION PANELon Albumin [Mass/Vol] 2.6 g/dL Low 3.4 - 5.1 g/dL [facility] ALP [Catalytic activity/Vol] 148 U/L [facility] ALT [Catalytic activity/Vol] 61 U/L High [facility] AST [Catalytic activity/Vol] 131 U/L High [facility] Bilirubin [Mass/Vol] 11.1 mg/dL High 0.1 - 1.5 mg/dL [facility] Bilirubin.direct [Mass/Vol] 2.10 mg/dL High 0.10 - 0.30 mg/dL [facility] Protein [Mass/Vol] 6.4 g/dL 6.2 - 8.3 g/dL [facility] LDHon 01-12-2022 LDH [Catalytic activity/Vol] 458 U/L High [facility] MANUAL DIFF AND MORPHon Anisocytosis Ql (Bld) Moderate [facility] Band form neutrophils/100 WBC (Bld) 3 % <=10 [facility] Bands # 0.23 K/uL High <0.01 [facility] Robles cells LM [...] Slight [facility] Anisocytosis Ql (Bld) Marked [facility] Nursery cells LM Ql (Bld) Few [facility] Cells [...] 149 mg/dL High 68 - 110 mg/dL [facility] Potassium [Moles/Vol] 3.4 mmol/L 3.3 - [...] g/dL Critically low 13.9 - 16.3 g/dL [facility] Interpretation and review of laboratory results [...] 7.3 10*3/uL 4.5 - 11.5 K/uL [facility] GLUCOSE, FINGERSTICK-IN OFFI CEon 01-11-2022 Glucose [Mass/Vol] 167 mg/dL High 68 - 110 mg/dL [facility] Interpretation and review of laboratory results Abnormal [facility] HAPTOGLOBINon 01-11-2022 Haptoglobin [Mass/Vol] mg/dL Low 36 - 220 mg/dL [facility] Interpretation and review of laboratory results Abnormal [facility] HEPATIC FUNCTION PANELon Albumin [Mass/Vol] 2.6 g/dL Low 3.4 - 5.1 g/dL [facility] ALP [Catalytic activity/Vol] 95 U/L [facility] ALT [Catalytic activity/Vol] 57 U/L High [facility] AST [Catalytic activity/Vol] 143 U/L High [facility] Bilirubin [Mass/Vol] 11.4 mg/dL High 0.1 - 1.5 mg/dL [facility] Bilirubin.direct [Mass/Vol] 2.20 mg/dL High 0.10 - 0.30 mg/dL [facility] Protein [Mass/Vol] 5.7 g/dL Low 6.2 - 8.3 g/dL [facility] LDHon 01-11-2022 LDH [Catalytic activity/Vol] 428 U/L High [facility] Laboratory - Blood bankon ABO and Rh group Nom (Bld) Blood group A Rh(D) positive [facility] MAGNESIUMon 01-11-2022 Interpretation and review of laboratory results Normal [facility] Magnesium [Mass/Vol] 2.0 mg/dL 1.6 - 2.8 mg/dL [facility] MANUAL DIFF AND MORPHon Band form neutrophils/100 WBC (Bld) 3 % <=10 [facility] Bands # 0.22 K/uL High <0.01 [facility] Robles cells LM [...] (Bld) Few [facility] No Panel InformationOrdered By: aNsrin Barr on 01-11-2022 Interpretation and review of laboratory results Abnormal [facility] No Panel Informationon 01-11 [facility] Interpretation and review of laboratory results Abnormal [facility] PROTHROMBIN TIME AND INRon 0 01-11-2022 INR Coag (PPP) [Relative time] 2.16 {INR} High [facility] Interpretation and review of laboratory results Abnormal [facility] PT Coag (PPP) [Time] 24.2 s High [facility] TYPE AND SCREENon 01-11-2022 ABO and [...] 165 mg/dL High 68 - 110 mg/dL [facility] Interpretation and review [...] 172 mg/dL High 68 - 110 mg/dL [facility] Potassium [Moles/Vol] 4.0 mmol/L 3.3 - [...] CBC WITH DIFFERENTIALon 05-0 Basophils (Bld) [#/Vol] 0.07 10*3/uL 0.00 - [...] [facility] RBC (Bld) [#/Vol] 1.80 10*6/uL Low [facility] WBC (Bld) [#/Vol] 4.7 10*3/uL 4.5 - 11.5 K/uL [facility] CREATINE KINASEon 01-10-2022 CK [Catalytic activity/Vol] 1073 U/L High [facility] D-DIMEROrdered By: Gabriella french on 01-10-2022 Fibrin D-dimer DDU (PPP) [Mass/Vol] >5000 High <230 ng/mL DDU [facility] Interpretation and review of laboratory results Abnormal [facility] EKG 12 LEAD - PERFORMon Diagnosis [facility] P wave Atrium by EKG 96 BPM [facility] MI[facility]al P wave axis 43 degrees [facility] P-R Interval 144 ms [facility] Q-T interval 326 ms [facility] Q-T interval corrected 411 ms [facility] QRS axis 49 degrees [facility] QRS duration 92 ms [facility] T wave axis 24 degrees [facility] HAPTOGLOBINon 01-10-2022 Haptoglobin [Mass/Vol] mg/dL Low 36 - 220 mg/dL [facility] Interpretation and review of laboratory results Abnormal [facility] HEPATIC FUNCTION PANELon Albumin [Mass/Vol] 2.7 g/dL Low 3.4 - 5.1 g/dL [facility] ALP [Catalytic activity/Vol] 87 U/L [facility] ALT [Catalytic activity/Vol] 54 U/L High [facility] AST [Catalytic activity/Vol] 147 U/L High [facility] Bilirubin [Mass/Vol] 11.1 mg/dL High 0.1 - 1.5 mg/dL [facility] Bilirubin.direct [Mass/Vol] 2.60 mg/dL High 0.10 - 0.30 mg/dL [facility] Protein [Mass/Vol] 6.0 g/dL Low 6.2 - 8.3 g/dL [facility] LDHOrdered By: Jarrod cruz on 01-10-2022 Interpretation and review of laboratory results Abnormal [facility] LDH [Catalytic activity/Vol] 378 U/L High [facility] Laboratory - Microbiology an d Antimicrobial susceptibilityon 01-10-2022 RSV RNA ANGIE+probe Ql (Unsp spec) Negative Negative [facility] Laboratory - Specimen inform ationon 01-10-2022 Specimen source Nom (Unsp spec) Negative Negative [facility] MAGNESIUMon 01-10-2022 Interpretation and review of laboratory results Normal [facility] Magnesium [Mass/Vol] 1.7 mg/dL 1.6 - 2.8 mg/dL [facility] MANUAL DIFF AND MORPHon 05- Acanthocytes LM Ql (Bld) Few [facility] Robles cells LM Ql (Bld) Moderate [facility] Cells Counted Total (Bld) [#] [facility] Macrocytes Ql (Bld) Slight [facility] Ovalocytes LM Ql (Bld) Few [facility] Schistocytes LM Ql (Bld) Few [facility] Acanthocytes LM Ql (Bld) Few [facility] Nursery cells LM Ql (Bld) Few [facility] Cells Counted Total (Bld) [#] [facility] Macrocytes Ql (Bld) Slight [facility] Polychromasia LM Ql (Bld) Slight [facility] Schistocytes LM Ql (Bld) Few [facility] Target cells LM Ql (Bld) Few [facility] No Panel Informationon 01-10 [facility] Interpretation and review of laboratory results Abnormal [facility] No Panel InformationOrdered By: Meka Morales on 01-10-2022 [facility] PARTIAL THROMBOPLASTIN TIMEo n 01-10-2022 aPTT Coag (Bld) [Time] 29 s [facility] Interpretation and review of laboratory results Normal [facility] PROTHROMBIN TIME AND INRon 0 01-10-2022 INR Coag (PPP) [Relative time] 1.79 {INR} High [facility] Interpretation and review of laboratory results Abnormal [facility] PT Coag (PPP) [Time] 20.1 s High [facility] RED BLOOD CELL COMPONENTon 0 01-10-2022 BB Order Item Product status info to follow [facility] RESPIRATORY VIRUS PANEL, PCR on 01-10-2022 Adenovirus DNA ANGIE+probe Ql (Unsp spec) Negative Negative [facility] C. pneumoniae DNA ANGIE+probe Ql (Unsp spec) Negative Negative [facility] FLUAV H1 RNA ANGIE+probe Ql (Unsp spec) Negative Negative [facility] FLUAV H3 RNA ANGIE+probe Ql (Unsp spec) Negative Negative [facility] FLUAV RNA ANGIE+probe Ql (Unsp spec) Negative Negative [facility] FLUBV RNA ANGIE+probe Ql (Unsp spec) Negative Negative [facility] HCoV HKU1 RNA ANGIE+probe Ql (Unsp spec) Negative Negative [facility] HCoV NL63 RNA ANGIE+probe Ql (Unsp spec) Negative Negative [facility] hMPV RNA ANGIE+probe Ql (Unsp spec) Negative Negative [facility] Interpretation and review of laboratory results Normal [facility] M. pneumoniae DNA ANGIE+probe Ql (Unsp spec) Negative Negative [facility] Parainfluenza virus 1 RNA ANGIE+probe Ql (Unsp spec) Negative Negative [facility] Parainfluenza virus 2 RNA ANGIE+probe Ql (Unsp spec) Negative Negative [facility] Parainfluenza virus 3 RNA ANGIE+probe Ql (Unsp spec) Negative Negative [facility] Parainfluenza virus 4 RNA ANGIE+probe Ql (Unsp spec) Negative Negative [facility] Rhinovirus RNA ANGIE+probe Nom (Unsp spec) Negative Negative [facility] US HEP PORT SPLEN VEIN + DOP PLERon 01-10-2022 RADIOLOGY [facility] Radiology Study observation (narrative) [facility] US SPLEENon 01-10-2022 RADIOLOGY [facility] Radiology Study observation (narrative) [facility] SPLEENOrdered By: Enrique Basurto on 01-10-2022 [facility] Work Phone: AMMONIAon 01-09-2022 Ammonia (P) [Moles/Vol] 74 umol/L High 11 - 35 umol/L [facility] Interpretation and review of laboratory results Abnormal [facility] AUTOIMMUNE MULTIPLEX PANELon 01-09-2022 Interpretation and review of laboratory results Normal [facility] Nuclear Ab IA Ql (S) Negative Negative [facility] Basic metabolic 2000 panelon 01-09-2022 Anion gap [Moles/Vol] 10 mmol/L [facility] Calcium [Mass/Vol] 8.1 mg/dL Low 8.4 - 10.4 mg/dL [facility] Chloride [Moles/Vol] 100 mmol/L 97 - 111 mmol/L [facility] CO2 [Moles/Vol] 27 mmol/L 21 - 30 mmol/L [facility] Creatinine [Mass/Vol] 0.41 mg/dL Low 0.80 [...] 01-09-2022 CK [Catalytic activity/Vol] 892 U/L [facility] Interpretation and review of laboratory results Abnormal [facility] HEPATIC FUNCTION PANELon Albumin [Mass/Vol] 2.7 g/dL Low 3.4 - 5.1 g/dL [facility] ALP [Catalytic activity/Vol] 92 U/L [facility] ALT [Catalytic activity/Vol] 47 U/L High [facility] AST [Catalytic activity/Vol] 124 U/L High [facility] Bilirubin [Mass/Vol] 11.2 mg/dL High 0.1 - 1.5 mg/dL [facility] Bilirubin.direct [Mass/Vol] 2.50 mg/dL High 0.10 - 0.30 mg/dL [facility] Protein [Mass/Vol] 6.0 g/dL Low 6.2 - 8.3 g/dL [facility] HIV 1 and 2 Ab and [...] AND MORPHon Anisocytosis Ql (Bld) Moderate [facility] Nursery cells LM Ql (Bld) Few [facility] Cells [...] Panel InformationOrdered By: Mi Alcazar on 01-09-2022 [facility] No Panel Informationon 01-09 Interpretation and review of laboratory results Abnormal [facility] PROTHROMBIN TIME AND INRon 0 01-09-2022 INR Coag (PPP) [Relative time] 1.94 {INR} High [facility] Interpretation and review of laboratory results Abnormal [facility] PT Coag (PPP) [Time] 21.8 s High [facility] RED BLOOD CELL COMPONENTon 0 01-09-2022 BB Order Item Product status info to follow [facility] THYROXINE (T4), FREEon 01-09 Free T4 [Mass/Vol] 0.88 ng/dL 0.45 - 1.80 ng/dL [facility] Interpretation and review of laboratory results Normal [facility] XR ABDOMEN 1 VIEW APon 01-09 RADIOLOGY [facility] Radiology Study observation (narrative) [facility] XR ABDOMEN 1 VIEW APOrdered By: Ulysses Omalley on 01-09-2022 [facility] Work Phone: ACETAMINOPHENon 01-08-2022 Acetaminophen [Mass/Vol] ug/mL 10 - 20 ug/mL [facility] Interpretation and review of laboratory results Normal [facility] ANTIBODY ID ELUTED-LAB ONLYo n 01-08-2022 Blood group antibody screen Elution Ql Negative [facility] Basic metabolic 2000 panelon 01-08-2022 Anion gap [Moles/Vol] 16 mmol/L [facility] Calcium [Mass/Vol] 8.1 mg/dL Low 8.4 - 10.4 mg/dL [facility] Chloride [Moles/Vol] 95 mmol/L Low 97 - 111 mmol/L [facility] CO2 [Moles/Vol] 22 mmol/L 21 - 30 mmol/L [facility] Creatinine [Mass/Vol] 0.44 mg/dL Low 0.80 - 1.30 mg/dL [facility] GFR/1.73 sq M.predicted MDRD (S/P/Bld) [Vol rate/Area] 140 mL/min/{1.73_m2} >=60 mL/min/1.73sqm [facility] Glucose [Mass/Vol] 91 mg/dL 68 - 110 mg/dL [facility] Potassium [Moles/Vol] 3.7 mmol/L 3.3 - [...] RBC (Bld) [#/Vol] 1.96 10*6/uL Low [facility] WBC (Bld) [#/Vol] 5.7 10*3/uL 4.5 - 11.5 K/uL [facility] CREATINE KINASEon 01-08-2022 CK [Catalytic activity/Vol] 777 U/L High [facility] DIRECT ANTIGLOBULIN TESTon 0 01-08-2022 Direct antiglobulin test.complement specific reagent Ql (RBC) Negative [facility] Direct antiglobulin test.IgG specific reagent (RBC) [Interp] Positive [facility] Direct antiglobulin test.poly specific reagent Ql (RBC) Positive [facility] EKG 12 LEAD - PERFORMon Diagnosis [facility] P wave Atrium by EKG 76 BPM [facility] P wave axis 46 degrees [facility] P-R Interval 132 ms [facility] Q-T interval 422 ms [facility] Q-T interval corrected 474 ms [facility] QRS axis 44 degrees [facility] QRS duration 86 ms [facility] T wave axis 22 degrees [facility] FERRITINon 01-08-2022 Ferritin [Mass/Vol] 829.1 ng/mL High 11.5 - 3 00.0 ng/mL [facility] Interpretation and review of laboratory results Abnormal [facility] FOLIC ACIDon 01-08-2022 Folate [Mass/Vol] 13.9 ng/mL 5.9 - 24.7 ng/mL [facility] Interpretation and review of laboratory results Normal [facility] GLUCOSE, FINGERSTICK-IN OFFI CEon 01-08-2022 Glucose [Mass/Vol] 94 mg/dL 68 - 110 mg/dL [facility] Interpretation and review of laboratory results Normal [facility] HAPTOGLOBINon 01-08-2022 Haptoglobin [Mass/Vol] mg/dL Low 36 - 220 mg/dL [facility] Interpretation and review of laboratory results Abnormal [facility] HCV Ab IA Qn (S)on HCV Ab Ql (S) Non-Reactive Nonreactive [facility] Interpretation and review of laboratory results Normal [facility] HEPATIC FUNCTION PANELon Albumin [Mass/Vol] 2.9 g/dL Low 3.4 - 5.1 g/dL [facility] ALP [Catalytic activity/Vol] 121 U/L [facility] ALT [Catalytic activity/Vol] 50 U/L High [facility] AST [Catalytic activity/Vol] 129 U/L High [facility] Bilirubin [Mass/Vol] 11.1 mg/dL High 0.1 - 1.5 mg/dL [facility] Bilirubin.direct [Mass/Vol] 2.40 mg/dL High 0.10 - 0.30 mg/dL [facility] Protein [Mass/Vol] 6.4 g/dL 6.2 - 8.3 g/dL [facility] HEPATITIS A IGM ANTIBODYon 0 01-08-2022 HAV IgM IA Ql Non-Reactive Nonreactive [facility] Interpretation and review of laboratory results Normal [facility] HEPATITIS A TOTAL ANTIBODYon 01-08-2022 HAV Ab IA Ql (S) Reactive Abnormal Nonreactive [facility] Interpretation and review of laboratory results Abnormal [facility] HEPATITIS B CORE ANTIBODYon 01-08-2022 HBV core Ab Ql (S) Non-Reactive Nonreactive [facility] Interpretation and review of laboratory results Normal [facility] HEPATITIS B SURFACE ANTIBODY on 01-08-2022 HBV surface Ab IA Qn m[IU]/mL mIU/mL [facility] HEPATITIS B SURFACE ANTIGENo n 01-08-2022 HBV surface Ag Ql (S) Non-Reactive Non-Reactive [facility] Interpretation and review of laboratory results Normal [facility] IRON AND TIBCon 01-08-2022 Interpretation and [...] 2.8 mg/dL [facility] MANUAL DIFF AND MORPHon Anisocytosis Ql (Bld) Marked [facility] Cells Counted Total (Bld) [#] [facility] Macrocytes Ql (Bld) Slight [facility] Polychromasia LM Ql (Bld) Slight [facility] Acanthocytes LM Ql (Bld) Few [facility] Nursery cells LM Ql (Bld) Few [facility] Cells Counted Total (Bld) [#] [facility] Macrocytes Ql (Bld) Slight [facility] Polychromasia LM Ql (Bld) Slight [facility] No Panel InformationOrdered By: Fiorella Cochran on 01-08-2022 [facility] No Panel Informationon 01-08 Interpretation and review of laboratory results Abnormal [facility] RADIOLOGY [facility] No Panel InformationOrdered By: Rafy aCrr on 01-08-2022 [facility] No Panel InformationOrdered By: Crow Werner on 01-08-2022 [facility] Work Phone: PROTHROMBIN TIME AND INRon 0 01-08-2022 INR Coag (PPP) [Relative time] 1.78 {INR} High [facility] Interpretation and review of laboratory results Abnormal [facility] PT Coag (PPP) [Time] 20.0 s High [facility] RETICULOCYTE COUNTOrdered By : Deborah Che on 01-08-2022 Immature reticulocytes/Total reticulocytes (Bld) 0.56 % High [facility] Interpretation and review of laboratory results Abnormal [facility] Reticulocytes (Bld) [#/Vol] 0.10 10*3/uL High [facility] Reticulocytes/100 RBC (Bld) 5.2 % High 0.5 - 1.5 % [facility]22 Interpretation and review of laboratory results Abnormal [facility] TSH Qn 6.627 m[IU]/L High [facility] US ASCITES SURVEY 4 QUADRANT Son 01-08-2022 RADIOLOGY [facility] Radiology Study observation (narrative) [facility] US ASCITES SURVEY 4 QUADRANT SOrdered By: Lisa Rizzo on 01-08-2022 [facility] Work Phone: US LIVER/GALL BLADDER/PANCRE ASon 01-08-2022 [facility] (narrative) [facility] VITAMIN B12 (CYANOCOBALAMIN) on 01-08-2022 Cobalamin (Vitamin B12) [Moles/Vol] 1299 pg/mL >300 [facility] Interpretation and review of laboratory results [facility] XR ELBOW LEFT MINIMUM 3 VIEW Son 01-08-2022 Radiology Study observation (narrative) [facility] XR HUMERUS LEFTon 01-08-2022 Radiology Study observation (narrative) [facility] XR ORBITSon 01-08-2022 RADIOLOGY [facility] Radiology Study observation (narrative) [facility] XR ORBITSOrdered By: Philipp Salgado on 01-08-2022 [facility] Work Phone: BLOOD BANKOrdered By: Destiny [...] Result S_ETOH:107.0 Called to RODGER LAZARO AT ER by MARCIAL MORA And Read Back For Confirmation at: 01/07/2022 10:03:11 GFR/1.73 sq M.predicted among blacks MDRD (S/P/Bld) [Vol rate/Area] mL/min/1.73 m2 Normal >=59mL/min/1.73 m2 [facility] Chem S GFR/1.73 sq M.predicted among non-blacks MDRD (S/P/Bld) [Vol rate/Area] mL/min/1.73 m2 Normal >=59mL/min/1.73 m2 [facility] Chem S Globulin (S) [...] 20 [facility] Remisol COAGULATIONOrdered By: Mary Kay Case on 01-07-2022 aPTT Coag (PPP) [Time] 34.3 [...] - 11.0 E9/L [facility] HemeAutoSS HEMATOLOGYOrdered By: [employer] on 01-07-2022 Basophils/100 WBC (Bld) 1.1 [...] increase of schistocytes. No hypersegmented granulocytes seen.[id number] [id number] Invalid Interpretation Code [facility] HemeManSS URINALYSISOrdered By: Mary Kay cordero on [...] Interpretation Code Negative [facility] UA Auto SS Pax.plasma/Lithi um.RBC (Bld) [Mass ratio] 0-3 /HPF Normal [...] [facility] UA Auto SS Urobilinogen Qn (U) [id number] {Alexey'U}/dL Invalid Interpretation Code 0.0 - 1.0 EU/dL [facility] UA Auto SS WBC Auto Ql (U) Negative (01/07/22 12:30 PM) Normal Negative [facility] UA Auto SS WBC LM.HPF (Urine sed) [#/Area] 0-5 /HPF Normal 0-5/HPF [facility] UA Auto SS Vital Signs Date Time Vital Sign Value Performing Clinician Facility 03-17-2024 14:22-0400 Blood Pressure Location Marc Ornelasnus [facility] 03-17-2024 14:22-0400 Diastolic blood pressure 82 mm[Hg] Marc Ornelasnus [facility] 03-17-2024 14:22-0400 Heart rate 66 /min Marc Ornelasnus [facility] 03-17-2024 14:22-0400 Respiratory rate 16 /min Marc Ornelasnus [facility] 03-17-2024 14:22-0400 SaO2% (BldA) [Mass fraction] 99 % Marc Ornelasnus [facility] 03-17-2024 14:22-0400 Systolic blood pressure 140 mm[Hg] Marc Ornelasnus [facility] 03-14-2024 09:29-0400 Body temperature 98.6 [degF] Ella Mohanke [facility] 03-14-2024 09:29-0400 Diastolic blood pressure 78 mm[Hg] Ella Mohanke [facility] 03-14-2024 09:29-0400 Heart rate 68 /min Ella Mohanke [facility] 03-14-2024 09:29-0400 Mean blood pressure 96 mm[Hg] Ella Crainboske [facility] 03-14-2024 09:29-0400 Respiratory rate 18 /min Ella Mohanke [facility] 03-14-2024 09:29-0400 SaO2% (BldA) [Mass fraction] 100 % Ella Crainboske [facility] 03-14-2024 09:29-0400 Systolic blood pressure 131 mm[Hg] Ella Crainboske [facility] 02-25-2024 09:10-0400 Body temperature 97.88 [degF] Ella Gonzales [facility] 02-25-2024 09:10-0400 Diastolic blood pressure 75 mm[Hg] Ella Gonzales [facility] 02-25-2024 09:10-0400 Heart rate 76 /min Ella Gonzales [facility] 02-25-2024 09:10-0400 Mean blood pressure 94 mm[Hg] Ella Gonzales [facility] 02-25-2024 09:10-0400 Respiratory rate 18 /min Ella Gonzales [facility] 02-25-2024 09:10-0400 SaO2% (BldA) [Mass fraction] 100 % Ella Gonzales [facility] 02-25-2024 09:10-0400 Systolic blood pressure 132 mm[Hg] Ella Gonzales [facility] 01-27-2024 09:42-0400 Blood Pressure Location Lisa Lopez [facility] 01-27-2024 09:42-0400 Body temperature 97.7 [degF] Lisa Lopez [facility] 01-27-2024 09:42-0400 Diastolic blood pressure 62 mm[Hg] Lisa Lopez [facility] 01-27-2024 09:42-0400 Heart rate 72 /min Lisa Lopez [facility] 01-27-2024 09:42-0400 Respiratory rate 14 /min Lisa Lopez [facility] 01-27-2024 09:42-0400 SaO2% (BldA) [Mass fraction] 99 % Lisa Lopez [facility] 01-27-2024 09:42-0400 Systolic blood pressure 130 mm[Hg] Lisa Lopez [facility] 12-23-2023 10:57-0400 Blood Pressure Location Lisa Lopez [facility] 12-23-2023 10:57-0400 Body temperature 97.7 [degF] Lisa Lopez [facility] 12-23-2023 10:57-0400 Diastolic blood pressure 62 mm[Hg] Lisa Lopez [facility] 12-23-2023 10:57-0400 Heart rate 76 /min Lisa Lopez [facility] 12-23-2023 10:57-0400 Respiratory rate 16 /min Lisa Lopez [facility] 12-23-2023 10:57-0400 SaO2% (BldA) [Mass fraction] 100 % Lisa Lopez [facility] 12-23-2023 10:57-0400 Systolic blood pressure 132 mm[Hg] Lisa Lopez [facility] 12-13-2023 11:54-0400 [facility] 12-13-2023 11:54-0400 [facility] 11:12-0400 Heart rate 81 /min [facility] 12-13-2023 11:12-0400 SaO2% (BldA) [Mass fraction] 100 % [facility] 12-13-2023 11:11-0400 Diastolic blood pressure 75 mm[Hg] [facility] 12-13-2023 11:11-0400 Mean blood pressure 93 mm[Hg] [facility] 12-13-2023 11:11-0400 Systolic blood pressure 128 mm[Hg] [facility] 12-13-2023 11:11-0400 Body temperature 97.88 [degF] [facility] 12-13-2023 10:31-0400 Hourly Rounding [facility] 12-13-2023 10:31-0400 Promise to Return [facility] 12-13-2023 09:26-0400 Hourly Rounding [facility] 12-13-2023 09:26-0400 Promise to Return [facility] 12-13-2023 07:12-0400 Heart rate 87 /min [facility] 12-13-2023 07:12-0400 SaO2% (BldA) [Mass fraction] 100 % [facility] 12-13-2023 07:11-0400 Diastolic blood pressure 68 mm[Hg] [facility] 12-13-2023 07:11-0400 Mean blood pressure 85 mm[Hg] [facility] 12-13-2023 07:11-0400 Systolic blood pressure 119 mm[Hg] [facility] 12-13-2023 07:11-0400 Body temperature 98.96 [degF] [facility] 12-13-2023 00:49-0400 Blood Pressure Location [facility] 12-13-2023 00:49-0400 Body temperature 98.78 [degF] [facility] 12-13-2023 00:49-0400 Diastolic blood pressure 73 mm[Hg] [facility] 12-13-2023 00:49-0400 Heart rate 100 /min [facility] 12-13-2023 00:49-0400 Mean blood pressure 95 mm[Hg] [facility] 12-13-2023 00:49-0400 Systolic blood pressure 138 mm[Hg] [facility] 12-12-2023 20:21-0400 Mean blood pressure 84 mm[Hg] [facility] 12-12-2023 04:00-0400 Mean blood pressure 86 mm[Hg] [facility]ickd [facility] 12-12-2023 04:00-0400 Respiratory rate 16 /min [facility]ides [facility] 12-11-2023 23:41-0400 Blood Pressure [facility] 12-11-2023 23:41-0400 Mean blood pressure 81 mm[Hg] [facility]ickd [facility] 12-11-2023 14:17-0400 Body temperature 98.06 [degF] [facility]ides [facility] 12-11-2023 14:17-0400 Heart rate 66 /min [facility]d [facility] 12-11-2023 14:04-0400 Respiratory rate 18 /min [facility] 12-11-2023 13:30-0400 Respiratory rate 18 /min mad [facility] 12-11-2023 09:08-0400 Body temperature 97.7 [degF] [facility] 12-11-2023 09:08-0400 Heart rate 76 /min [facility] 11-11-2023 16:50-0500 Blood Pressure Location Martin Sarmini [facility] 11-11-2023 16:50-0500 Body temperature 98.06 [degF] Martin Sarmini [facility] 11-11-2023 16:50-0500 Diastolic blood pressure 83 mm[Hg] Martin Sarmini [facility] 11-11-2023 16:50-0500 Heart rate 60 /min Martin Sarmini [facility] 11-11-2023 16:50-0500 Mean blood pressure 105 mm[Hg] Martin Sarmini [facility] 11-11-2023 16:50-0500 Respiratory rate 12 /min Martin Sarmini [facility] 11-11-2023 16:50-0500 SaO2% (BldA) [Mass fraction] 100 % Martin Sarmini [facility] 11-11-2023 16:50-0500 Systolic blood pressure 149 mm[Hg] Martin Sarmini [facility] 11-11-2023 16:40-0500 Blood Pressure Location Martin Sarmini [facility] 11-11-2023 16:40-0500 Diastolic blood pressure 81 mm[Hg] Martin Sarmini [facility] 11-11-2023 16:40-0500 Heart rate 63 /min Martin Sarmini [facility] 11-11-2023 16:40-0500 Mean blood pressure 101 mm[Hg] Martin Sarmini [facility] 11-11-2023 16:40-0500 Respiratory rate 17 /min Martin Sarmini [facility] 11-11-2023 16:40-0500 SaO2% (BldA) [Mass fraction] 100 % Martin Sarmini [facility] 11-11-2023 16:40-0500 Systolic blood pressure 140 mm[Hg] Martin Sarmini [facility] 11-11-2023 16:35-0500 Blood Pressure Location Martin Sarmini [facility] 11-11-2023 16:35-0500 Diastolic blood pressure 75 mm[Hg] Martin Sarmini [facility] 11-11-2023 16:35-0500 Heart rate 74 /min Martin Sarmini [facility] 11-11-2023 16:35-0500 Mean blood pressure 96 mm[Hg] Martin Sarmini [facility] 11-11-2023 16:35-0500 Respiratory rate 14 /min Martin Sarmini [facility] 11-11-2023 16:35-0500 SaO2% (BldA) [Mass fraction] 100 % Martin Sarmini [facility] 11-11-2023 16:35-0500 Systolic blood pressure 138 mm[Hg] Martin Sarmini [facility] 11-11-2023 16:25-0500 Body temperature 98.24 [degF] Martin Sarmini [facility] 11-11-2023 16:20-0500 Respiratory rate 18 /min Martin Sarmini [facility] 11-11-2023 16:15-0500 Respiratory rate 19 /min Martin Bryannamini [facility] 11-11-2023 14:32-0500 Body temperature 97.16 [degF] Martin Bryannamini [facility] 10-28-2023 09:31-0500 Blood Pressure Location Lisa Lopez [facility] 10-28-2023 09:31-0500 Body temperature 97.88 [degF] Lisa Lopez [facility] 10-28-2023 09:31-0500 Diastolic blood pressure 70 mm[Hg] Lisa Lopez [facility] 10-28-2023 09:31-0500 Heart rate 76 /min Lisa Lopez [facility] 10-28-2023 09:31-0500 Respiratory rate 16 /min Lisa Lopez [facility] 10-28-2023 09:31-0500 SaO2% (BldA) [Mass fraction] 100 % Lisa Lopez [facility] 10-28-2023 09:31-0500 Systolic blood pressure 130 mm[Hg] Lisa Lopez [facility] 09-21-2023 14:24-0500 Blood Pressure Location Keith Patricia [facility] 09-21-2023 14:24-0500 Body temperature 98.06 [degF] Keith Patricia [facility] 09-21-2023 14:24-0500 Diastolic blood pressure 78 mm[Hg] Keith Patricia [facility] 09-21-2023 14:24-0500 Heart rate 73 /min Keith Patricia [facility] 09-21-2023 14:24-0500 Respiratory rate 18 /min Keith Patricia [facility] 09-21-2023 14:24-0500 SaO2% (BldA) [Mass fraction] 99 % Keith Patricia [facility] 09-21-2023 14:24-0500 Systolic blood pressure 156 mm[Hg] Keith Harshad [facility] 09-01-2023 12:16-0500 Diastolic blood pressure 80 mm[Hg] Martin Sarmini [facility] 09-01-2023 12:16-0500 Mean blood pressure 100 mm[Hg] Martin Sarmini [facility] 09-01-2023 12:16-0500 Systolic blood pressure 140 mm[Hg] Martin Sarmini [facility] 09-01-2023 12:12-0500 Blood Pressure Location Martin Sarmini [facility] 09-01-2023 12:12-0500 Diastolic blood pressure 82 mm[Hg] Martin Sarmini [facility] 09-01-2023 12:12-0500 Heart rate 80 /min Martin Sarmini [facility] 09-01-2023 12:12-0500 Respiratory rate 18 /min Martin Sarmini [facility] 09-01-2023 12:12-0500 Systolic blood pressure 142 mm[Hg] Mario Evans [facility] 08-26-2023 09:34-0500 Blood Pressure Location Lisa Lopez [facility] 08-26-2023 09:34-0500 Diastolic blood pressure 88 mm[Hg] Lisa Lopez [facility] 08-26-2023 09:34-0500 Heart rate 71 /min Lisa Lopez [facility] 08-26-2023 09:34-0500 Respiratory rate 18 /min Lisa Lopez [facility] 08-26-2023 09:34-0500 SaO2% (BldA) [Mass fraction] 100 % Lisa Lopez [facility] 08-26-2023 09:34-0500 Systolic blood pressure 150 mm[Hg] Lisa Lopez [facility] 07-24-2023 07:37-0500 Blood Pressure Location Lisa Lopez [facility] 07-24-2023 07:37-0500 Diastolic blood pressure 76 mm[Hg] Lisa Lopez [facility] 07-24-2023 07:37-0500 Heart rate 79 /min Lisa Lopez [facility] 07-24-2023 07:37-0500 Respiratory rate 16 /min Lisa Lopez [facility] 07-24-2023 07:37-0500 SaO2% (BldA) [Mass fraction] 100 % Lisa John [facility] 07-24-2023 07:37-0500 Systolic blood pressure 132 mm[Hg] Lisa John [facility] 06-19-2023 12:23-0400 Body temperature 97.88 [degF] Teddy Luna [facility] 06-19-2023 12:23-0400 Diastolic blood pressure 105 mm[Hg] Teddy Luna [facility] 06-19-2023 12:23-0400 Heart rate 70 /min Teddy Luna [facility] 06-19-2023 12:23-0400 Respiratory rate 18 /min Teddy Luna [facility] 06-19-2023 12:23-0400 SaO2% (BldA) [Mass fraction] 98 % Teddy Luna [facility] 06-19-2023 12:23-0400 Systolic blood pressure 165 mm[Hg] Teddy Luna [facility] 04-24-2023 11:00-0400 Body height 170.18 cm Jarrod Eddy Other [employer] [facility] [employer] Other 04-24-2023 11:00-0400 Body mass index (BMI) [Ratio] 26.94 kg/m2 Jarrod Eddy Other [employer] Other 04-24-2023 11:00-0400 Body temperature 97.4 [degF] Jarrod Eddy Other [employer] Other 04-24-2023 11:00-0400 Body weight 78.02 kg Jarrod Eddy Other [employer] Other 04-24-2023 11:00-0400 Diastolic blood pressure 70 mm[Hg] Jarrod Childnancy Other [employer] Other 04-24-2023 11:00-0400 SaO2% (BldA) [Mass fraction] 99 % Jarrod Childnancy Other [employer] Other 04-24-2023 11:00-0400 Systolic blood pressure 138 mm[Hg] Jarrod Dillarddanish Other [employer] Other 04-21-2023 09:38-0400 Body height 170.2 cm Tanvir Black MD Work Phone: [employer] 04-21-2023 09:38-0400 Body mass index (BMI) [Ratio] 27.08 kg/m2 Tanvir Black MD Work Phone: [employer] 04-21-2023 09:38-0400 Body temperature 97.7 [degF] Tanvir Black MD Work Phone: [employer] 04-21-2023 09:38-0400 Body weight 78.43 kg Tanvir Black MD Work Phone: [employer] 04-21-2023 09:38-0400 Diastolic blood pressure 67 mm[Hg] Tanvir Black MD Work Phone: [employer] 04-21-2023 09:38-0400 Heart rate 79 /min Tanvir Black MD Work Phone: [employer] 04-21-2023 09:38-0400 Respiratory rate 20 /min Tanvir Black MD Work Phone: [employer] 04-21-2023 09:38-0400 SaO2% (BldA) [Mass fraction] 100 % Tanvir Black MD Work Phone: [facility] 04-21-2023 09:38-0400 Systolic blood pressure 136 mm[Hg] Tanvir Black MD Work Phone: [facility] 03-22-2023 21:05-0400 Diastolic blood pressure 80 mm[Hg] Martin Mary Ann [facility] 03-22-2023 21:05-0400 Heart rate 88 /min Martin Mary Ann [facility] 03-22-2023 21:05-0400 Hourly Rounding Martin Mary Ann [facility] 03-22-2023 21:05-0400 Promise to Return Martin Mary Ann [facility] 03-22-2023 21:05-0400 Respiratory rate 18 /min Martin Mary Ann [facility] 03-22-2023 21:05-0400 SaO2% (BldA) [Mass fraction] 100 % Martin Mary Ann [facility] 03-22-2023 21:05-0400 Systolic blood pressure 148 mm[Hg] Martin Mary Ann [facility] 03-22-2023 20:07-0400 Body temperature 97.7 [degF] Martin Mary Ann [facility] 03-22-2023 20:07-0400 Diastolic blood pressure 84 mm[Hg] Martin Mary Ann [facility] 03-22-2023 20:07-0400 Heart rate 92 /min Martin Mary Ann [facility] 03-22-2023 20:07-0400 Respiratory rate 18 /min Martin Mary Ann [facility] 03-22-2023 20:07-0400 SaO2% (BldA) [Mass fraction] 100 % Martin Mary Ann [facility] 03-22-2023 20:07-0400 Systolic blood pressure 151 mm[Hg] Martin Tylerner [facility] 02-18-2023 09:11-0400 Diastolic blood pressure 70 mm[Hg] Brent Myron [facility] 02-18-2023 09:11-0400 Heart rate 82 /min Brent Myron [facility] 02-18-2023 09:11-0400 Mean blood pressure 91 mm[Hg] Brent Myron [facility] 02-18-2023 09:11-0400 Respiratory rate 16 /min Brent Myron [facility] 02-18-2023 09:11-0400 SaO2% (BldA) [Mass fraction] 98 % Brent Myron [facility] 02-18-2023 09:11-0400 Systolic blood pressure 132 mm[Hg] Brent Myron [facility] 02-18-2023 07:45-0400 Body temperature 98.96 [degF] Brent Myron [facility] 02-18-2023 07:45-0400 Diastolic blood pressure 80 mm[Hg] Brent Myron [facility] 02-18-2023 07:45-0400 Heart rate 95 /min Brent Myron [facility] 02-18-2023 07:45-0400 Respiratory rate 16 /min Brent Myron [facility] 02-18-2023 07:45-0400 SaO2% (BldA) [Mass fraction] 100 % Brent Myron [facility] 02-18-2023 07:45-0400 Systolic blood pressure 153 mm[Hg] Brent Sanches [facility] 01-20-2023 12:00-0400 Diastolic blood pressure 71 mm[Hg] 1 [facility] 01-20-2023 12:00-0400 Heart rate 78 /min 1 [facility] 01-20-2023 12:00-0400 Respiratory rate 16 /min 1 [facility] 01-20-2023 12:00-0400 SaO2% (BldA) [Mass fraction] 94 % 1 [facility] 01-20-2023 12:00-0400 Systolic blood pressure 118 mm[Hg] 1 [facility] 01-20-2023 07:30-0400 Body temperature 98.71 [degF] [address] 01-12-2023 09:49-0400 Body height 170.2 cm Tanvir Black MD [facility] 01-12-2023 09:49-0400 Body mass index (BMI) [Ratio] 27.28 kg/m2 Tanvir Black MD Work Phone: [employer] 01-12-2023 09:49-0400 Body temperature 96.6 [degF] Tanvir Black MD Work Phone: [employer] 01-12-2023 09:49-0400 Body weight 79.02 kg Tanvir Black MD [facility] 01-12-2023 09:49-0400 Diastolic blood pressure 56 mm[Hg] Tanvir Black MD Work Phone: [employer] 01-12-2023 09:49-0400 Heart rate 79 /min Tanvir Black MD Work Phone: [employer] 01-12-2023 09:49-0400 Respiratory rate 20 /min Tanvir Black MD [facility] 01-12-2023 09:49-0400 SaO2% (BldA) [Mass fraction] 100 % Tanvir Black MD Work Phone: [employer] 01-12-2023 09:49-0400 Systolic blood pressure 121 mm[Hg] Tanvir Black MD Work Phone: [employer] 01-12-2023 08:58-0400 Body mass index (BMI) [Ratio] 27.41 kg/m2 Marcello Ibanez MD Work Phone: [employer] 01-12-2023 08:58-0400 Body temperature 96.6 [degF] Marcello Ibanez MD Work Phone: [employer] 01-12-2023 08:58-0400 Body weight 79.38 kg Marcello Ibanez MD Work Phone: [employer] 01-12-2023 08:58-0400 Diastolic blood pressure 56 mm[Hg] Marcello Ibanez MD Work Phone: [employer] 01-12-2023 08:58-0400 Heart rate 79 /min Marcello Ibanez MD Work Phone: [employer] 01-12-2023 08:58-0400 Systolic blood pressure 121 mm[Hg] Marcello Ibanez MD Work Phone: [employer] 12-16-2022 09:49-0400 Body height 170.2 cm Dejuan Lechuga MD Work Phone: [employer] 12-16-2022 09:49-0400 Body mass index (BMI) [Ratio] 28.05 kg/m2 Dejuan Lechuga MD Work Phone: [employer] 12-16-2022 09:49-0400 Body weight 81.24 kg Dejuan Lechuga MD Work Phone: [employer] 12-16-2022 09:49-0400 Diastolic blood pressure 57 mm[Hg] Dejuan Lechuga MD Work Phone: [employer] 12-16-2022 09:49-0400 Heart rate 85 /min Dejuan Lechuga MD Work Phone: [employer] 12-16-2022 09:49-0400 SaO2% (BldA) [Mass fraction] 100 % Dejuan Lechuga MD Work Phone: [employer] Network 12-16-2022 09:49-0400 Systolic blood pressure 113 mm[Hg] Dejuan Lechuga MD Work Phone: [employer] 11-13-2022 11:23-0500 Body mass index (BMI) [Ratio] 26.63 kg/m2 Tanvir Black MD Work Phone: [employer] 11-13-2022 11:23-0500 Body temperature 98.6 [degF] Tanvir Black MD Work Phone: [employer] 11-13-2022 11:23-0500 Body weight 77.11 kg Tanvir Black MD Work Phone: [employer] 11-13-2022 11:23-0500 Diastolic blood pressure 62 mm[Hg] Tanvir Black MD Work Phone: [employer] 11-13-2022 11:23-0500 Heart rate 86 /min Tanvir Black MD Work Phone: [employer] 11-13-2022 11:23-0500 Respiratory rate 14 /min Tanvir Black MD Work Phone: [employer] 11-13-2022 11:23-0500 SaO2% (BldA) [Mass fraction] 100 % Tanvir Black MD Work Phone: [employer] 11-13-2022 11:23-0500 Systolic blood pressure 153 mm[Hg] Tanvir Black MD Work Phone: [employer] 10-27-2022 09:49-0500 Body mass index (BMI) [Ratio] 26.59 kg/m2 Marcello Ibanez MD Work Phone: [employer] 10-27-2022 09:49-0500 Body temperature 97.5 [degF] Marcello Ibanez MD Work Phone: [employer] 10-27-2022 09:49-0500 Body weight 77.02 kg [facility] 10-27-2022 09:49-0500 Diastolic blood pressure 55 mm[Hg] Marcello Ibanez MD [facility] 10-27-2022 09:49-0500 Heart rate 84 /min Marcello Ibanez MD Work Phone: [employer] 10-27-2022 09:49-0500 SaO2% (BldA) [Mass fraction] 100 % Marcello Ibanez MD [facility] 10-27-2022 09:49-0500 Systolic blood pressure 128 mm[Hg] Marcello [facility]banez MD [facility] 08-25-2022 13:44-0500 Body mass index (BMI) [Ratio] 26.78 kg/m2 Theo Burks MD Work Phone: [employer] 08-25-2022 13:44-0500 Body temperature 98.49 [degF] Theo Burks MD Work Phone: [employer] 08-25-2022 13:44-0500 Body weight 77.56 kg Theo Burks MD Work Phone: [employer] 08-25-2022 13:44-0500 Diastolic blood pressure 65 mm[Hg] Theo Burks MD Work Phone: [employer] 08-25-2022 13:44-0500 Heart rate 69 /min Theo Bursk MD Work Phone: [employer] 08-25-2022 13:44-0500 Respiratory rate 18 /min Theo Burks MD Work Phone: [employer] 08-25-2022 13:44-0500 SaO2% (BldA) [Mass fraction] 99 % Theo Burks MD Work Phone: [employer] 08-25-2022 13:44-0500 Systolic blood pressure 132 mm[Hg] Theo Burks MD Work Phone: [employer] 08-25-2022 10:42-0500 Body mass index (BMI) [Ratio] 26.94 kg/m2 Abbey Alvarez MD Work Phone: [employer] 08-25-2022 10:42-0500 Body temperature 98.2 [degF] Abbey Alvarez MD Work Phone: [employer] 08-25-2022 10:42-0500 Body weight 78.02 kg Abbey Alvarez MD Work Phone: [employer] 08-25-2022 10:42-0500 Diastolic blood pressure 50 mm[Hg] Abbey Alvarez MD Work Phone: [employer] 08-25-2022 10:42-0500 Heart rate 82 /min Abbey Alvarez MD Work Phone: [employer] 08-25-2022 10:42-0500 Systolic blood pressure 129 mm[Hg] Abbey Alvarez MD Work Phone: [employer] 08-15-2022 15:50-0500 Heart rate 78 /min Ann-Marie Bonner MD Work Phone: [employer] 08-15-2022 15:50-0500 Respiratory rate 14 /min Ann-Marie Bonner MD Work Phone: [employer] 08-15-2022 15:50-0500 SaO2% (BldA) [Mass fraction] 98 % Ann-Marie Bonner MD Work Phone: [employer] 08-15-2022 12:51-0500 Body mass index (BMI) [Ratio] 20.52 kg/m2 Ann-Marie Bonner MD Work Phone: [employer] 08-15-2022 12:51-0500 Body temperature 98.49 [degF] Ann-Marie Bonner MD Work Phone: [employer] 08-15-2022 12:51-0500 Body weight 59.42 kg Ann-Marie Bonner MD Work Phone: [employer] 08-15-2022 12:51-0500 Diastolic blood pressure 70 mm[Hg] Ann-Marie Bonner MD Work Phone: [employer] 08-15-2022 12:51-0500 Systolic blood pressure 147 mm[Hg] Ann-Marie Bonner MD Work Phone: [employer] 08-15-2022 10:16-0500 Body mass index (BMI) [Ratio] 26.72 kg/m2 Nenita Franco MD Work Phone: [employer] 08-15-2022 10:16-0500 Body temperature 98.6 [degF] Nenita Franco MD Work Phone: [employer] 08-15-2022 10:16-0500 Body weight 77.38 kg Nenita Franco MD Work Phone: [employer] 08-15-2022 10:16-0500 Diastolic blood pressure 56 mm[Hg] Nenita Franco MD Work Phone: [employer] 08-15-2022 10:16-0500 Heart rate 85 /min Nenita Franco MD Work Phone: [employer] 08-15-2022 10:16-0500 Respiratory rate 18 /min Nenita Franco MD Work Phone: [employer] 08-15-2022 10:16-0500 SaO2% (BldA) [Mass fraction] 100 % Nenita Franco MD Work Phone: [employer] 08-15-2022 10:16-0500 Systolic blood pressure 136 mm[Hg] Nenita Franco MD Work Phone: [employer] 08-14-2022 13:12-0500 Diastolic blood pressure 60 mm[Hg] Saskia Madison APRN-UNIFIED COMMUNICATIONS ARCHITECT Work Phone: [employer] 08-14-2022 13:12-0500 Systolic blood pressure 128 mm[Hg] Saskia Madison APRN-UNIFIED COMMUNICATIONS ARCHITECT Work Phone: [employer] 08-14-2022 13:10-0500 Body mass index (BMI) [Ratio] 27.1 kg/m2 Saskia Madison APRN-UNIFIED COMMUNICATIONS ARCHITECT [facility] 08-14-2022 13:10-0500 Body temperature 98.2 [degF] Saskia Madison APRN-UNIFIED COMMUNICATIONS ARCHITECT Work Phone[facility] 08-14-2022 13:10-0500 Body weight 78.47 kg Saskia Madison APRN-UNIFIED COMMUNICATIONS ARCHITECT Work [facility] 08-14-2022 13:10-0500 Heart rate 84 /min Saskia Madison APRN-UNIFIED COMMUNICATIONS ARCHITECT [facility] 08-14-2022 11:51-0500 Body height 170.2 cm Tanvir Black MD Work Phone: [employer] 08-14-2022 11:51-0500 Body mass index (BMI) [Ratio] 26.78 kg/m2 Tanvir Black MD Work Phone: [employer] 08-14-2022 11:51-0500 Body temperature 99.19 [degF] Tanvir Black MD Work Phone: [employer] 08-14-2022 11:51-0500 Body weight 77.56 kg Tanvir Black MD Work Phone: [employer] 08-14-2022 11:51-0500 Diastolic blood pressure 60 mm[Hg] Tanvir Black MD Work Phone: [employer] 08-14-2022 11:51-0500 Heart rate 90 /min Tanvir Black MD Work Phone: [employer] 08-14-2022 11:51-0500 Respiratory rate 14 /min Tanvir Black MD Work Phone: [employer] 08-14-2022 11:51-0500 SaO2% (BldA) [Mass fraction] 100 % Tanvir Black MD Work Phone: [employer] 08-14-2022 11:51-0500 Systolic blood pressure 141 mm[Hg] Tanvir Black MD Work Phone: [employer] 05-06-2022 10:03-0400 Body height 170.2 cm Tanvir Black MD Work Phone: [employer] 05-06-2022 10:03-0400 Body mass index (BMI) [Ratio] 26.78 kg/m2 Tanvir Black MD Work Phone: [employer] 05-06-2022 10:03-0400 Body temperature 98.4 [degF] Tanvir Balck MD Work Phone: [employer] 05-06-2022 10:03-0400 Body weight 77.56 kg Tanvir Black MD Work Phone: [employer] 05-06-2022 10:03-0400 Diastolic blood pressure 70 mm[Hg] Tanvir Black MD Work Phone: [employer] 05-06-2022 10:03-0400 Heart rate 75 /min Tanvir Black MD Work Phone: [employer] 05-06-2022 10:03-0400 Respiratory rate 16 /min Tanvir Black MD Work Phone: [employer] 05-06-2022 10:03-0400 SaO2% (BldA) [Mass fraction] 100 % Tanvir Black MD Work Phone: [employer] 05-06-2022 10:03-0400 Systolic blood pressure 137 mm[Hg] Tanvir Black MD Work Phone: [employer] 03-13-2022 11:39-0400 Body mass index (BMI) [Ratio] 25.84 kg/m2 Tanvir Black MD Work Phone: [employer] 03-13-2022 11:39-0400 Body temperature 98.49 [degF] Tanvir Black MD [facility] 03-13-2022 11:39-0400 Body weight 74.84 kg Tanvir Black MD Work Phone: [employer] 03-13-2022 11:39-0400 Diastolic blood pressure 69 mm[Hg] Tanvir Black MD [facility] 03-13-2022 11:39-0400 Heart rate 85 /min Tanvir Black MD [facility] 03-13-2022 11:39-0400 Respiratory rate 14 /min Tanvir Black MD [facility] 03-13-2022 11:39-0400 SaO2% (BldA) [Mass fraction] 100 % Tanvir Black MD [facility] 03-13-2022 11:39-0400 Systolic blood pressure 137 mm[Hg] Tanvir Black MD Work Phone: [facility] 02-17-2022 16:07-0400 Diastolic blood pressure 76 mm[Hg] [facility] 02-17-2022 16:07-0400 Heart rate 84 /min [facility] 02-17-2022 16:07-0400 Mean blood pressure 94 mm[Hg] [facility] 02-17-2022 16:07-0400 Respiratory rate 18 /min [facility] 02-17-2022 16:07-0400 SaO2% (BldA) [Mass fraction] 98 % [facility] 02-17-2022 16:07-0400 Systolic blood pressure 129 mm[Hg] [facility] 02-17-2022 15:18-0400 Diastolic blood pressure 75 mm[Hg] [facility] 02-17-2022 15:18-0400 Heart rate 79 /min [facility] 02-17-2022 15:18-0400 Mean blood pressure 92 mm[Hg] [facility] 02-17-2022 15:18-0400 Respiratory rate 16 /min [facility] 02-17-2022 15:18-0400 SaO2% (BldA) [Mass fraction] 99 % [facility] 02-17-2022 15:18-0400 Systolic blood pressure 126 mm[Hg] [facility] 02-17-2022 14:58-0400 Diastolic blood pressure 76 mm[Hg] [facility] 02-17-2022 14:58-0400 Heart rate 79 /min [facility] 02-17-2022 14:58-0400 Mean blood pressure 99 mm[Hg] [facility] 02-17-2022 14:58-0400 Respiratory rate 18 /min [facility] 02-17-2022 14:58-0400 SaO2% (BldA) [Mass fraction] 100 % [facility] 02-17-2022 14:58-0400 Systolic blood pressure 144 mm[Hg] [facility] 02-17-2022 12:30-0400 Body temperature 98.24 [degF] [facility] 02-17-2022 12:30-0400 Heart rate 101 /min [facility] 02-17-2022 12:30-0400 Respiratory rate 18 /min [facility] 02-11-2022 10:22-0400 Body height 170.2 cm Tanvir Black MD Work Phone: [facility] 02-11-2022 10:22-0400 Body mass index (BMI) [Ratio] 26.16 kg/m2 Tanvir Black MD Work Phone: [facility] 02-11-2022 10:22-0400 Body temperature 98.2 [degF] Tanvir Black MD Work Phone: [employer] 02-11-2022 10:22-0400 Body weight 75.75 kg Tanvir Black MD Work Phone: [employer] 02-11-2022 10:22-0400 Diastolic blood pressure 81 mm[Hg] Tanvir Black MD Work Phone: [employer] 02-11-2022 10:22-0400 Heart rate 103 /min Tanvir Black MD Work Phone: [employer] 02-11-2022 10:22-0400 Respiratory rate 16 /min Tanvir Black MD Work Phone: [employer] 02-11-2022 10:22-0400 SaO2% (BldA) [Mass fraction] 100 % Tanvir Black MD Work Phone: [employer] 02-11-2022 10:22-0400 Systolic blood pressure 157 mm[Hg] Tanvir Black MD Work Phone: [employer] 01-17-2022 14:20-0400 Body temperature 98.29 [degF] Francisco Marino MD Work Phone: [employer] 01-17-2022 14:20-0400 Diastolic blood pressure 56 mm[Hg] Francisco Marino MD Work Phone: [employer] 01-17-2022 14:20-0400 Heart rate 83 /min Francisco Marino MD Work Phone: [employer] 01-17-2022 14:20-0400 Respiratory rate 18 /min Francisco Marino MD Work Phone: [employer] 01-17-2022 14:20-0400 SaO2% (BldA) [Mass fraction] 100 % Francisco Marino MD Work Phone: [employer] 01-17-2022 14:20-0400 Systolic blood pressure 125 mm[Hg] Francisco Marino MD Work Phone: [employer] 01-17-2022 06:00-0400 Body mass index (BMI) [Ratio] 22.77 kg/m2 Francisco Marino MD Work Phone: [facility] 01-17-2022 06:00-0400 Body weight 65.95 kg Francisco Marino MD Work Phone: [facility] 01-10-2022 18:36-0400 Heart rate 96 /min Francisco Marino MD Work Phone: [facility] 01-08-2022 21:47-0400 Heart rate 76 /min Francisco Marino MD Work Phone: [facility] 01-08-2022 14:00-0400 Hourly Rounding Aldair Ila [facility] 01-08-2022 14:00-0400 Promise to Return Aldair Ila [facility] 01-08-2022 14:00-0400 SaO2% (BldA) [Mass fraction] 100 % Aldair Ila [facility] 01-08-2022 08:00-0400 Body height 170.2 cm Francisco Marino MD Work Phone: [facility] 01-08-2022 05:00-0400 Diastolic blood pressure 70 mm[Hg] Aldair Ila [facility] 01-08-2022 05:00-0400 Heart rate 87 /min Aldair Ila [facility] 01-08-2022 05:00-0400 Mean blood pressure 91 mm[Hg] Aldair Ila [facility] 01-08-2022 05:00-0400 Respiratory rate 18 /min Aldair Ila [facility] 01-08-2022 05:00-0400 Systolic blood pressure 134 mm[Hg] Aldair Ila [facility] 01-08-2022 04:00-0400 Body temperature 98.96 [degF] Aldair Ila [facility] 01-08-2022 04:00-0400 Diastolic blood pressure 74 mm[Hg] Aldair Ila [facility] 01-08-2022 04:00-0400 Heart rate 96 /min Aldair Ila [facility] 01-08-2022 04:00-0400 Mean blood pressure 90 mm[Hg] Aldair Ila [facility] 01-08-2022 04:00-0400 Respiratory rate 20 /min Aldair Ila [facility] 01-08-2022 04:00-0400 SaO2% (BldA) [Mass fraction] 97 % Aldair Ila [facility] 01-08-2022 04:00-0400 Systolic blood pressure 122 mm[Hg] Aldair Ila [facility] 01-08-2022 03:00-0400 Diastolic blood pressure 72 mm[Hg] Aldair Ila [facility] 01-08-2022 03:00-0400 Heart rate 80 /min Aldair Ila [facility] 01-08-2022 03:00-0400 SaO2% (BldA) [Mass fraction] 98 % Aldair Ila [facility] 01-08-2022 03:00-0400 Systolic blood pressure 126 mm[Hg] Aldair Ila [facility] 01-08-2022 00:00-0400 Body temperature 98.42 [degF] Aldair Ila [facility] 01-07-2022 20:30-0400 Body temperature 98.06 [degF] Aldair Ila [facility] 01-07-2022 20:00-0400 Blood Pressure Location Aldair Thorpe [facility] 01-07-2022 19:13-0400 Heart rate 112 /min Aldair Thorpe [facility] 01-07-2022 19:00-0400 Blood Pressure Location Aldair Thorpe [facility] 01-07-2022 18:00-0400 Blood Pressure Location Aldair Thorpe [facility] 01-07-2022 17:04-0400 Heart rate 110 /min Aldair Thorpe [facility] 01-07-2022 14:32-0400 Heart rate 117 /min [facility] Ila [facility] Encounters Encounter Date Encounter Type Care Provider Facility Start: 05-12-2024 ambulatory Mario Evans Facility:[facility] Start: 04-29-2024 ambulatory Lisa Lopez [facility]il [facility] Start: 04-15-2024 ambulatory Lisa Lopez Facil ity:[facility] Start: 04-05-2024 ambulatory Lisa Lopez Facil ity:CD:[id number] Start: 03-17-2024 End: 03-17-2024 ambulatory MD Marc Liz Facility:[facility] Start: 03-17-2024 End: 03-17-2024 Patient encounter procedure Marc Liz [facility] Start: 03-14-2024 End: 03-14-2024 ambulatory AGPCNP-BC Ella Polk Janet Facility:[facility] Start: 03-14-2024 End: 03-14-2024 Patient encounter procedure Ella Polk Janet [facility] Start: 03-02-2024 End: 03-02-2024 ambulatory Ella Gonzales Facility:[facility] Start: 03-02-2024 End: 03-02-2024 Patient encounter procedure Ella Gonzales [facility] Start: 02-25-2024 End: 02-25-2024 ambulatory Lisa Lopez Facility:[facility] Start: 02-25-2024 End: 02-25-2024 Patient encounter procedure Ella Gonzales [facility] Start: 02-20-2024 End: 02-20-2024 ambulatory Ella Gonzales Facility:[facility] Start: 02-20-2024 End: 02-20-2024 Patient encounter procedure Ella Gonzales [facility] Start: 02-06-2024 End: 02-08-2024 Refill Marcello Ibanez MD Work Phone: [facility] Comment on above: Refill Start: 01-27-2024 End: 01-27-2024 ambulatory Lisa Lopez Facility:[facility] Start: 01-27-2024 End: 01-27-2024 Patient encounter procedure Lisa Lopez [facility] Start: 12-31-2023 End: 12-31-2023 ambulatory Lisa Lopez Facility:[facility] Start: 12-31-2023 End: 12-31-2023 Patient encounter procedure Lisa Lopez [facility] Start: 12-30-2023 End: 12-30-2023 ambulatory JOSIANE MCCULLOUGH Facility:[facility] Start: 12-30-2023 End: 12-30-2023 Patient encounter procedure Margaret Zuñiga MD Work Phone: General Surgery Comment on above: Gallstones (Primary Dx) Start: 12-23-2023 End: 12-23-2023 ambulatory Lisa Lopez Facility:[facility] Start: 12-23-2023 End: 12-23-2023 Patient encounter procedure Lisa Lopez [facility] Start: 12-21-2023 End: 12-21-2023 ambulatory Lisa Lopez Facility:[facility] Start: 12-21-2023 End: 12-21-2023 Patient encounter procedure Lisa Lopez [facility] Start: 12-14-2023 End: 01-13-2024 ambulatory Lisa Lopez Facility:CD:[id number] Start: 12-11-2023 End: 12-13-2023 ambulatory Desi Mena Facility:[facility] Start: 12-11-2023 End: 12-13-2023 Observation Desi Mena [facility] Start: 12-11-2023 End: 12-11-2023 ambulatory MD Camacho TEJEDA Facility:[facility] Start: 12-11-2023 End: 12-11-2023 Patient encounter procedure Lisa Lopez [facility] Start: 11-11-2023 End: 11-11-2023 ambulatory Martin Talal Sarmini Facility:[facility] Start: 11-11-2023 End: 11-11-2023 Patient encounter procedure Martin Talal Sarmini [facility] Start: 10-28-2023 End: 10-28-2023 ambulatory Lisa Lopez Facility:[facility] Start: 10-28-2023 End: 10-28-2023 Patient encounter procedure Lisa Lopez [facility] Start: 10-08-2023 End: 10-08-2023 ambulatory Lisa Lopez Facility:[facility] Start: 10-01-2023 End: 10-01-2023 Subsequent hospital visit by physician Tanvir Black MD Work Phone: [facility] Comment on above: 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) Start: 10-01-2023 End: 10-02-2023 ambulatory UNKNOWN PROVIDER Facility:[facility] Start: 10-01-2023 End: 10-01-2023 Patient encounter procedure iLsa Lopez [facility] Start: 09-30-2023 End: 09-30-2023 ambulatory Martin Talal Sarmini Facility:[facility] Start: 09-27-2023 Letter encounter Theo bright MD Work Phone: [facility] Start: 09-21-2023 End: 09-21-2023 ambulatory Keith Patricia Facility:[facility] Start: 09-21-2023 End: 09-21-2023 Patient encounter procedure Keith Patricia [facility] Start: 09-21-2023 ambulatory Axel Normamella Facilit y:[facility] Start: 09-03-2023 End: 09-03-2023 ambulatory Martin Talal Sarmini Facility:[facility] Start: 09-03-2023 End: 09-03-2023 Patient encounter procedure Martin Talal Sarmini [facility] Start: 09-01-2023 End: 09-01-2023 ambulatory Martin Talal Sarmini Facility:[facility] Start: 09-01-2023 End: 09-01-2023 Patient encounter procedure Mario Evans [facility] Start: 08-26-2023 End: 08-26-2023 ambulatory Lisa Lopez Facility:[facility] Start: 08-26-2023 End: 08-26-2023 Patient encounter procedure Lisa Lopez [facility] Start: 08-25-2023 Refill Tanvir Black MD Work Phone: [facility] Comment on above: Refill Start: 08-06-2023 End: 08-06-2023 ambulatory Teddy Hitchcock Facility:[facility] Start: 08-06-2023 End: 08-06-2023 Patient encounter procedure Teddy Hitchcock [facility] Start: 08-03-2023 End: 11-01-2023 ambulatory Lisa Lopez Facility:[facility] Start: 08-03-2023 End: 11-01-2023 Recurring Lisa Lopez [facility] Start: 07-27-2023 [facility]ulatory [facility] Start: 07-24-2023 End: 07-24-2023 ambulatory Lisa Lopez Facility:[facility] Start: 07-24-2023 End: 07-24-2023 Lab Drop off Lisa Lopez [facility] Start: 07-24-2023 End: 07-24-2023 ambulatory Lisa Lopez Facility:[facility] Start: 07-24-2023 End: 07-24-2023 Patient encounter procedure Lisa Lopez [facility] Start: 07-23-2023 End: 07-23-2023 ambulatory Teddy Hitchcock Facility:[facility] Start: 07-23-2023 End: 07-23-2023 Patient encounter procedure Teddy Hitchcock [facility] Start: 07-20-2023 E-mail encounter fro m caregiver Tanvir Black MD Work Phone: [facility] Start: 07-20-2023 Patient encounter procedure Tanvir Black MD Work Phone: [facility] Comment on above: Had to reschedule ap pointment Start: 07-16-2023 ambulatory Mario Evans Facili ty:[facility] Start: 07-16-2023 End: 07-16-2023 ambulatory Teddy Hitchcock Facility:[facility] Start: 07-16-2023 End: 07-16-2023 Patient encounter procedure Teddy Hitchcock [facility] Start: 07-13-2023 Refill Marcello Ibanez MD Work Phone: [facility] Comment on above: Refill Start: 07-11-2023 Refill Tanvir Black MD Work Phone: [facility] Comment on above: Refill Start: 07-06-2023 End: 07-07-2023 Pre-admission assessment Teddy Hitchcock [facility] Start: 06-25-2023 End: 06-25-2023 ambulatory Teddy Hitchcock Facility:[facility] Start: 06-25-2023 End: 06-25-2023 Patient encounter procedure Teddy Hitchcock [facility] Start: 06-19-2023 End: 06-19-2023 Emergency department patient visit Teddy Luna [facility] Start: 06-18-2023 End: 06-18-2023 ambulatory Teddy Gauthiery Facility:[facility] Start: 06-18-2023 End: 06-18-2023 Patient encounter procedure Teddy Gauthiery [facility] Start: 06-11-2023 End: 06-11-2023 ambulatory Teddy Gauthiery Facility:[facility] Start: 06-04-2023 End: 06-04-2023 ambulatory Teddy Gauthiery Facility:[facility] Start: 06-04-2023 End: 06-04-2023 Patient encounter procedure Teddy Gauthiery [facility] Start: 05-25-2023 End: 05-25-2023 ambulatory Teddy Gauthiery Facility:[facility] Start: 05-25-2023 End: 05-25-2023 Patient encounter procedure Teddy Gauthiery [facility] Start: 05-14-2023 End: 05-14-2023 ambulatory Teddy Gauthiery Facility:[facility] Start: 05-14-2023 End: 05-14-2023 Patient encounter procedure Teddy Gauthiery [facility] Start: 05-08-2023 End: 05-08-2023 ambulatory Teddy Gauthiery Facility:[facility] Start: 05-07-2023 End: 05-07-2023 ambulatory Teddy Gauthiery Facility:[facility] Start: 05-07-2023 End: 05-07-2023 Patient encounter procedure Teddy Gauthiery [facility] Start: 04-30-2023 End: 05-01-2023 ambulatory Teddy Aster Robleroyanickdamaso Facility:[facility] Start: 04-30-2023 End: 05-01-2023 Pre-admission assessment Teddy Rodarte Osbaldopollo [facility] Start: 04-24-2023 End: 04-24-2023 ambulatory Jarrod Eddy Other [place] [employer] Other Start: 04-24-2023 Office outpatient ne w 45 minutes Jarrod Eddy [facility] Vascular Surgery Start: 04-24-2023 Refill Tanvir Black MD Work Phone: [facility] Comment on above: Refill Start: 04-23-2023 End: 04-23-2023 ambulatory Teddy Hitchcock Facility:[facility] Start: 04-23-2023 End: 04-23-2023 Patient encounter procedure Teddy Hitchcock [facility] Start: 04-22-2023 ambulatory Tanvir Black MD Work Phone: [facility] Comment on above: lab results Start: 04-22-2023 E-mail encounter fro m caregiver Tanvir Black MD Work Phone: [facility] Start: 04-21-2023 End: 04-22-2023 ambulatory UNKNOWN PROVIDER Facility:[facility] Start: 04-21-2023 Encounter for other specified special examinations UNKNOWN PROVIDER [facility] Start: 04-21-2023 End: 04-21-2023 Patient encounter status [facility] MD [facility] Start: 04-21-2023 End: 04-21-2023 Subsequent hospital visit by physician Monie Hernandez RN [facility] Comment on above: Dx: Multiple myeloma , remission status unspecified (HCC) (Primary Dx) 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) Start: 04-16-2023 End: 04-16-2023 ambulatory Teddy Rodarte Osbaldoyanickdamaso Facility:[facility] Start: 04-16-2023 End: 04-16-2023 Patient encounter procedure Teddy Hitchcock [facility] Start: 04-13-2023 End: 04-13-2023 ambulatory Teddy Rodarte Osbaldoyanickdamaso Facility:[facility] Start: 04-13-2023 End: 04-13-2023 Patient encounter procedure Teddy Hitchcock [facility] Start: 03-30-2023 End: 03-30-2023 ambulatory Teddy ViviSarah Osbaldoyainckdamaso Facility:[facility] Start: 03-22-2023 End: 03-22-2023 Emergency department patient visit Martin Reese [facility] Start: 03-22-2023 Letter encounter Tanvir Black MD Work Phone: [facility] Comment on above: Refill Start: 03-16-2023 End: 03-16-2023 ambulatory Teddy ViviSarah Osbaldoyanickdamaso Facility:[facility] Start: 03-16-2023 End: 03-16-2023 Patient encounter procedure Teddy Hitchcock [facility] Start: 03-06-2023 Refill Theo wilder MD Work Phone: [facility] Comment on above: Refill Prior Authorization Start: 03-05-2023 End: 03-05-2023 Patient encounter procedure Teddy Hitchcock [facility] Start: 02-27-2023 Telephone encounter Nighat rai [address] PATROL-UNIFIED COMMUNICATIONS ARCHITECT Work Phone: [facility] Comment on above: Left Message To Call Back Start: 02-18-2023 End: 02-18-2023 Emergency department patient visit Brent GreenSarah Sanches [facility] Start: 02-09-2023 Refill Dejuan Lechuga MD Work Phone: [facility] Comment on above: Refill Start: 01-20-2023 End: 01-20-2023 Subsequent hospital visit by physician Barrett Ip/Op Angio 1 [facility] Radiology Comment on above: Coagulation defect ( HCC) (Primary Dx); Alcoholic fatty liver; Hyperbilirubinemia; Alcoholic hepatitis, unspecified whether ascites present Start: 01-12-2023 End: 01-12-2023 Subsequent hospital visit by physician Meka Lucas RN [facility] Comment on above: 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) Start: 01-12-2023 End: 01-12-2023 Office outpatient visit 25 minutes Marcello Ibanez MD Work Phone: [facility] Liver Comment on above: Liver fibrosis (Prim tanner Dx); Alcohol use disorder in remission; Elevated liver enzymes; Jaundice; Body mass index (BMI) 27.0-27.9, adult Start: 12-20-2022 Letter encounter Theo bright MD Work Phone: [facility] Start: 12-16-2022 End: 12-16-2022 Office outpatient visit 15 minutes Dejuan Lechuga MD Work Phone: [facility] Comment on above: Rib pain (Primary Dx ); Alcoholic cirrhosis of liver without ascites (HCC); Body mass index (BMI) 28.0-28.9, adult Start: 12-15-2022 End: 12-15-2022 Phys/qhp telephone evaluation 11-20 min Theo Burks MD Work Phone: [facility] Comment on above: Rib pain (Primary Dx ) Start: 12-15-2022 Letter encounter Theo bright MD Work Phone: [facility] Start: 12-15-2022 Telephone encounter Theo Burks MD Work Phone: [facility] Start: 12-03-2022 Refill Marcello Ibanez MD Work Phone: [facility] Liver Comment on above: Refill Start: 11-13-2022 End: 11-13-2022 Subsequent hospital visit by physician Tanvir Black MD Work Phone: [facility] Comment on above: 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) Start: 10-27-2022 Letter encounter Theo bright MD Work Phone: [facility] Gastroenterology Start: 10-27-2022 End: 11-03-2022 Office outpatient visit 25 minutes Marcello Ibanez MD Work Phone: [facility] Liver Comment on above: Alcoholic cirrhosis of liver without ascites (HCC) (Primary Dx); Nausea Alcoholic fatty live r (Primary Dx); Nausea; Hyperbilirubinemia; Alcoholic hepatitis, unspecified whether ascites present Alcoholic fatty live r (Primary Dx); Nausea; Hyperbilirubinemia; Alcoholic hepatitis, unspecified whether ascites present; Body mass index (BMI) 26.0-26.9, adult Start: 10-01-2022 Refill Abbey Love Work Phone: [facility] Liver Comment on above: Refill I have a few questio ns Start: 09-21-2022 Letter encounter Theo bright MD Work Phone: [facility] Start: 09-20-2022 Telephone encounter Tanika lange RN Work Phone: [facility] Line Comment on above: Cancel Appointment Start: 09-16-2022 Orders Only Saskia Madison [address] PATROL-UNIFIED COMMUNICATIONS ARCHITECT Work Phone: [facility] Liver Start: 09-15-2022 Orders Only Samantha Stauffer [address] [employer]ROL-UNIFIED COMMUNICATIONS ARCHITECT Work Phone: [facility] Gastroenterology Start: 08-29-2022 End: 08-29-2022 Phys/qhp telephone evaluation 5-10 min Theo Burks MD Work Phone: [facility] Comment on above: Cellulitis, unspecif ied cellulitis site (Primary Dx); Muscle soreness Start: 08-25-2022 End: 08-25-2022 Orders Only Abbey Alvarez MD Work Phone: [facility] Gastroenterology Comment on above: Arrived Start: 08-25-2022 End: 08-26-2022 Office outpatient visit 25 minutes Abbey Alvarez MD Work Phone: [facility] Liver Comment on above: Alcoholic hepatitis [...] adult Start: 08-22-2022 ambulatory Jim Hill RN [facility] Comment on above: internal med request Start: 08-22-2022 E-mail encounter giana m caregiver Jim Hill RN [facility] Start: 08-21-2022 Letter encounter Balbina Sparrow Ultrasound Start: 08-16-2022 Orders Only Tanvir Black MD Work Phone: [facility] Start: 08-15-2022 ambulatory Tanvir Black MD Work Phone: [facility] Comment on above: Severe pain Start: 08-15-2022 E-mail encounter giana m caregiver Tanvir Black MD Work Phone: [facility] Start: 08-15-2022 End: 08-15-2022 Emergency department patient visit Ann-Marie Bonner MD Work Phone: [facility] Emergency Medicine Comment on above: Leg/thigh symptoms ( Pt states has infection in R leg x 4 days, seen yesterday for same) Start: 08-15-2022 End: 08-15-2022 Office outpatient new 30 minutes Nenita Franco MD Work Phone: [facility] Comment on above: Cellulitis, unspecif ied cellulitis site (Primary Dx); Body mass index (BMI) 26.0-26.9, adult Start: 08-14-2022 Letter encounter Balbina vo On[facility] Start: 08-14-2022 End: 08-14-2022 Office consultation new/estab patient 60 min Saskiaandrea SIVLESTRE Work Phone: [facility] Liver Comment on above: Alcoholic cirrhosis, unspecified whether ascites present (HCC) (Primary Dx); Iron deficiency anemia, unspecified iron deficiency anemia type; Alcoholic cirrhosis of liver without ascites (HCC); Body mass index (BMI) 27.0-27.9, adult Start: 08-14-2022 End: 08-14-2022 Subsequent hospital visit by physician Jasmyne Grimaldo RN [facility] Comment on above: Dx: Thrombocytopenia (HCC) (Primary Dx) Start: 08-14-2022 End: 08-14-2022 Office outpatient visit 40 minutes Tanvir Black MD Work Phone: [facility] Comment on above: 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) Start: 08-08-2022 ambulatory Tanvir Black MD Work Phone: [facility] Comment on above: Question Start: 08-08-2022 E-mail encounter fro m caregiver Tanvir Black MD Work Phone: [facility] Start: 05-06-2022 End: 05-06-2022 Office outpatient visit 40 minutes Tanvir Black MD Work Phone: [facility] Comment on above: 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) Start: 05-06-2022 End: 05-06-2022 Subsequent hospital visit by physician Leslie Canela RN Work Phone: [facility] Comment on above: 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) Start: 05-05-2022 Letter encounter [facility] Cardiology Start: 03-13-2022 Letter encounter [facility] On[facility] Medical Start: 03-13-2022 End: 03-13-2022 Subsequent hospital visit by physician Rosita Le RN Work Phone: [facility] Comment on above: 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 Comment on above: Prior Authorization Start: 01-08-2022 End: 01-17-2022 Evaluation and management of inpatient Francisco Marino MD Work Phone: Inpatient 10B Start: 01-07-2022 End: 01-08-2022 Evaluation and management of inpatient Aldair Thorpe [facility] Procedures Date Procedure Procedure Detail Performing Clinician Start: 11-11-2023 Esophagogastroduodenoscopy Mario acosta Start: 09-30-2023 Esophagogastroduodenoscopy Lisa Sudhir rosales Comment on above: 3 large esophageal varices banded, PHG Start: 04-21-2023 Hepatic function panel Tanvir Black MD Work Phone: Start: 04-21-2023 Lactate dehydrogenase ldh Tanvir Black MD Work Phone: Start: 01-20-2023 Level v surg pathology gross&microscopic exam Brayan Babin MD Work Phone: Start: 01-20-2023 Hepatc vngrph wdg/fr hemodyn eval rs&i Marcello Ibanez MD Work Phone: Start: 01-20-2023 Transcatheter biopsy rs&i Marcello Ibanez MD Work Phone: Start: 01-20-2023 Prothrombin time Erica Rock MD Work Phone: Start: 01-12-2023 Blood count complete automated Marcello zuniga MD Work Phone: Start: 01-12-2023 Hepatic function panel Marcello Ibanez MD Work Phone: Start: 11-13-2022 Alpha-fetoprotein serum Saskia Madison APRN-UNIFIED COMMUNICATIONS ARCHITECT Work Phone: Start: 11-13-2022 Antihuman globulin direct [...] Work Phone: Start: 01-16-2022 Lactate dehydrogenase ldh Ariopher Ceferino DO Work Phone: Start: 01-15-2022 Glucose blood reagent strip Edtawny LSarah ordoñez MD Work Phone: Start: 01-15-2022 Glucose blood reagent strip Edward LSarah ordoñez MD Work Phone: Start: 01-15-2022 Glucose blood reagent strip Edward L. Bipin ordoñez MD Work Phone: Start: 01-15-2022 Hepatic function panel Ivy Chua MD Work Phone: Start: 01-15-2022 End: 01-15-2022 Lactate dehydrogenase ldh Christopher De La Vega DO Work Phone: Start: 01-14-2022 Glucose blood reagent strip Edtawny LSarah ordoñez MD Work Phone: Start: 01-14-2022 Glucose blood reagent strip Edtawny LSarah ordoñez MD Work Phone: Start: 01-14-2022 Hepatic function panel Ivy Chua MD Work Phone: Start: 01-14-2022 End: 01-14-2022 Lactate dehydrogenase ldh Christopher De La Vega DO Work Phone: Start: 01-13-2022 Glucose blood reagent strip Edtawny LSarah ordoñez MD Work Phone: Start: 01-13-2022 Glucose blood reagent strip Edtawny LSarah ordoñez MD Work Phone: Start: 01-13-2022 Glucose blood reagent strip Edward LSarah ordoñez MD Work Phone: Start: 01-13-2022 Hepatic function panel Ivy Chua MD Work Phone: Start: 01-13-2022 End: 01-13-2022 Lactate dehydrogenase ldh Christopher De La Vega DO Work Phone: Start: 01-12-2022 Glucose blood reagent strip Edtawny ordoñez MD Work Phone: Start: 01-12-2022 Blood [...] Clotting factor viii ahg 1 stage Scott jayla Ceferino DO Work Phone: Start: 01-10-2022 Us abdominal [...] 01-08-2022 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 Ivy Chua MD Work Phone: Start: 01-08-2022 [...] w/o i&r Darion Blanchard DO Work Phone: Start: 01-08-2022 Lipid 1996 panel - Serum or Plasma Melvin Zuñiga MD Work Phone: Incision AND drainage Heladio Lopez Jaw region structure (body structure) Aldair Ila Plan of Treatment Date Care Activity Detail Author Start: 2034 Varicella-zoster vaccine (product) [facility] Start: 01-08-2027 Lipid panel [facility] Start: 05-08-2024 Influenza vaccination Influenza Vaccine (Season Ended) [facility] Start: 01-22-2024 End: 01-22-2024 Patient encounter procedure 01/22/2024 9:30 AM EDT Off ice Visit General Surgery [address] [address] Bang Fuentes MD [address] [place] [address] [facility] Comment on above: [facility] Start: 10-01-2023 End: 10-01-2023 Patient encounter procedure 10/01/2023 8:30 AM EST Appointment [facility] [address] [place] [address] Tanvir Black MD [address] [place] [address] [facility] Start: 09-07-2023 Behavioral Health Screening Behavioral Health Screening [facility] Start: 07-27-2023 End: 07-27-2023 Patient encounter procedure 07/27/2023 10:00 AM EST Office Visit [facility] Liver [address] [place] [address] Marcello Ibanez MD [address] [place] [address] [facility] Start: 07-20-2023 End: 07-20-2023 Patient encounter procedure [facility] Start: 06-07-2023 Influenza vaccination Influenza Vaccine (#1) [facility] Start: 05-16-2023 Fluid sample AFP level [facility] Start: 05-08-2023 Influenza vaccination Influenza Vaccine (#1) [facility] Start: 04-21-2023 End: 04-21-2023 Patient encounter procedure [facility] Start: 03-20-2023 End: 03-20-2023 Patient encounter procedure [facility] Start: 03-03-2023 End: 03-03-2023 Telemedicine consultation with patient 03/03/2023 11:20 AM EDT Telemedicine [facility] [address] [address] [id number] Nighat Mahmood, [address] PAT[employer]OL-UNIFIED COMMUNICATIONS ARCHITECT [address] [address] [facility] Start: 01-20-2023 End: 01-20-2023 Patient encounter procedure 01/20/2023 Appointment Radiology [facility] Start: 01-12-2023 End: 01-12-2023 [facility] Start: 12-16-2022 End: 12-16-2022 Patient encounter procedure 12/16/2022 Office Visit Family Practice Dejuan Lechuga MD [address] [facility] [place] [place] [address] [facility] Start: 12-15-2022 End: 12-15-2022 Telemedicine consultation with patient 12/15/2022 Telemedicine Family Practice Theo Burks MD [address] [place] [address] Arrived [facility] Comment on above: Arrived Start: 12-15-2022 End: 12-16-2023 XR Ribs - left Views and Chest PA XR RIBS LT UNILAT W/PA CHEST Imaging Routine Rib pain Expected: 12/15/2022, Expires: 12/16/[address] [email or web address] Work Phone: Comment on above: Expected: 12/15/2022, Expires: 4 Start: 11-13-2022 End: 11-13-2022 Patient encounter procedure [facility] Start: 10-27-2022 End: 10-27-2023 RF Guidance for transjugular biopsy of Liver-- W contrast IV [facility] Comment on above: Expected: 10/27/2022, Expires: 4 Start: 10-27-2022 End: 10-27-2022 Patient encounter procedure 10/27/2022 Office Visit Gastroenterology Abbey Alvarez MD [address] [place] [address] [facility] Start: 09-22-2022 End: 09-22-2022 Admission to same day surgery center [facility] Comment on above: [...] Hospital Encounter Gastroenterology Claire Avila MD [address] [place] [address] [facility] Start: 09-19-2022 End: 09-19-2022 Patient encounter procedure 09/19/2022 Office Visit Gastroenterology Saskia Madison, LIBAN-UNIFIED COMMUNICATIONS ARCHITECT [address] [place] [address] [facility] Start: 09-16-2022 End: 10-17-2022 SARS-CoV-2 (COVID-19) RNA [Presence] in Unspecified specimen by ANGIE with probe detection NOVEL CORONAVIRUS (COVID-19) Lab Routine Encounter for laboratory testing for severe acute respiratory syndrome coronavirus 2 (SARS-CoV-2) Expected: 09/16/2022, Expires: 10/17/2022 [facility] [employer] Work Phone: Comment on above: Expected: 09/16/2022, Expires: Start: 09-15-2022 End: 10-16-2022 SARS-CoV-2 (COVID-19) RNA [Presence] in Unspecified specimen by ANGIE with probe detection NOVEL CORONAVIRUS (COVID-19) Lab Routine Encounter for laboratory testing for severe acute respiratory syndrome coronavirus 2 (SARS-CoV-2) Expected: 09/15/2022, Expires: 10/16/[address] 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) Expected: 09/08/2022, Expires: 10/26/2022 [facility] Comment on above: Expected: 09/08/2022, Expires: 3 Start: 08-29-2022 End: 08-29-2022 Patient encounter procedure 08/29/2022 Office Visit Family Practice Theo Burks MD [address] [place] [address] [facility] Start: 08-28-2022 End: 08-28-2022 Telemedicine consultation with patient 08/28/2022 Telemedicine Gastroenterology Saskia Madison APRN-UNIFIED COMMUNICATIONS ARCHITECT [address] [place] [address] [facility] Start: 08-27-2022 End: 09-12-2022 Assay of ferritin FERRITIN Lab Routine Alcoholic hepatitis without ascites Alcoholic cirrhosis of liver without ascites (HCC) 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) Expected: 08/27/2022, Expires: 09/12/2022 [facility] Comment on above: Expected: 08/27/2022, Expires: 3 Start: 08-27-2022 End: 09-12-2022 Assay of gammaglobulin iga igd igg igm each IMMUNOGLOBULIN G Lab Routine Alcoholic hepatitis without ascites Alcoholic cirrhosis of liver without ascites (HCC) 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) Expected: 08/27/2022, Expires: 09/12/2022 [facility] Comment on above: Expected: 08/27/2022, Expires: 3 Start: 08-27-2022 End: 09-12-2022 Assay of iron IRON AND TIBC Lab Routine Alcoholic hepatitis without ascites Alcoholic cirrhosis of liver without ascites (HCC) 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) Expected: 08/27/2022, Expires: 09/12/2022 [facility] Comment on above: Expected: 08/27/2022, Expires: 3 Start: 08-27-2022 End: 09-12-2022 Hfe hemochromatosis gene anal common variants HEMOCHROMATOSIS DNA TEST Lab Routine Alcoholic hepatitis without ascites Alcoholic cirrhosis of liver without ascites (HCC) 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) Expected: 08/27/2022, Expires: 09/12/2022 [facility] [employer] [facility] Work Phone: Comment on above: Expected: 08/27/2022, Expires: 3 Start: 08-25-2022 End: 09-12-2022 Prothrombin time PROTHROMBIN TIME AND INR Lab Lab Add-On Alcoholic cirrhosis of liver without ascites (HCC) Expected: 08/25/2022, Expires: 09/12/2022 [facility] [employer] [facility] Work Phone: Comment on above: Expected: 08/25/2022, Expires: 3 Start: 08-25-2022 End: 08-25-2022 Patient encounter procedure [facility] Comment on above: Arrived Start: 08-19-2022 End: 08-19-2022 Professional / ancillary services management 08/19/2022 Ancillary Procedure Radiology [facility] Start: 08-19-2022 End: 08-19-2022 Professional / ancillary services management 08/19/2022 Ancillary Procedure Radiology [facility] Start: 08-14-2022 End: 08-14-2023 US Abdomen RUQ US LIVER/GALL BLADDER/PANCREAS Imaging Routine Iron deficiency anemia, unspecified iron deficiency anemia type Alcoholic cirrhosis, unspecified whether ascites present (HCC) Expected: 08/14/2022, Expires: 08/14/2023 [facility] [employer] Work Phone: Comment on above: Expected: 08/14/2022, Expires: 3 Start: 08-14-2022 End: 08-14-2023 US.doppler Portal vein and Hepatic vein US HEP PORT SPLEN VEIN + DOPPLER Imaging Routine Iron deficiency anemia, unspecified iron deficiency anemia type Alcoholic cirrhosis, unspecified whether ascites present (HCC) Expected: 08/14/2022, Expires: 08/14/2023 [facility] Comment on above: Expected: 08/14/2022, Expires: 3 Start: 08-14-2022 End: 08-14-2022 Patient encounter procedure [facility] Start: 07-11-2022 Hepatocellular Carcinoma Screening Hepatocellular Carcinoma Screening [facility] Start: 07-11-2022 Liver Imaging (Hepatocellular Carcinoma Screening) Liver Imaging (Hepatocellular Carcinoma Screening) [facility] Start: 07-11-2022 [facility] Start: 06-07-2022 Influenza vaccination Influenza Vaccine (#1) [facility] Start: 05-06-2022 Subsequent hospital visit by physician 05/06/2022 Hospital Encounter Oncology Medical Tanvir Black MD [address] [place] [address] [place] [address] Subj: Appointment Reminder [facility] Oncology Medical Comment on above: Subj: Appointment Reminder Start: 05-06-2022 End: 05-06-2022 Patient encounter procedure [facility] Start: 04-07-2022 Influenza vaccination Influenza Vaccine (#1) [facility] Start: 03-13-2022 End: 03-13-2022 Patient encounter procedure 03/13/2022 Appointment Oncology Medical [facility] Oncology Medical Start: 03-13-2022 End: 03-13-2022 Patient encounter procedure 03/13/2022 Appointment Oncology Medical Tanvir Black MD [address] [address] [facility] Oncology Medical Start: 02-11-2022 End: 02-11-2022 ambulatory [facility] Oncology Medical Start: 02-11-2022 End: 02-11-2022 Patient encounter procedure 02/11/2022 Appointment Oncology Medical Tanvir Black MD [address] [place] [address] [facility] Oncology Medical Start: 01-23-2022 End: 01-23-2022 ambulatory [facility] Start: 01-23-2022 End: 01-23-2022 Patient encounter procedure 01/23/2022 Office Visit Orthopedics Ronen Welch MD [address] [place] [address] [facility] Start: 01-20-2022 End: 01-20-2022 ambulatory [facility] Liver Start: 02-05-2021 COVID-19 Vaccine (2 - Moderna risk series) COVID-19 Vaccine (2 - Moderna risk series) [facility] Start: 02-05-2021 COVID-19 Vaccine (3 - Moderna risk series) COVID-19 Vaccine (3 - Moderna risk series) [facility] Start: 2011 HPV Vaccine (optional start 27-45 years) HPV Vaccine (optional start 27-45 years) [facility] Start: 2003 Shingles (RZV) Vaccine (1 of 2) Shingles (RZV) Vaccine (1 of 2) [facility] Start: 2003 Shingrix Vaccine (1 of 2) Shingrix Vaccine (1 of 2) 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) every month for 12 Occurrences starting 03/13/2022 until 03/13/2023, 1 completed [facility] Comment on above: every month for 12 Occurrences starting 03/13/2022 until 03/13/2023, 1 completed End: 11-13-2023 Assay of haptoglobin quantitative HAPTOGLOBIN Lab STAT 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) 6 Occurrences starting 11/12/2022 until 11/13/2023, 1 completed [facility] Comment on above: 6 Occurrences starting 11/12/2022 until 11/13/2023, 1 completed Bacteria identified in Urine by Culture URINE CULTURE Microbiology Routine Dysuria 08/14/2022 12:17 PM EST [employer] Work Phone: Basic metabolic 2000 panel - Serum or Plasma [facility] End: 03-13-2023 Basic metabolic 2000 panel - Serum or Plasma BASIC METABOLIC PANEL Lab STAT 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 for 12 Occurrences starting 03/13/2022 until 03/13/2023, 1 completed [facility] Comment on above: monthly for 12 Occurrences [...] METABOLIC PANEL Lab Routine Nausea Ordered: 10/27/2022 [facility] Comment on above: Ordered: 10/27/2022 End: 11-13-2023 Basic metabolic 2000 panel - Serum or Plasma BASIC METABOLIC PANEL Lab STAT 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) 6 Occurrences starting 11/12/2022 until 11/13/2023, 1 completed [facility] Comment on above: 6 Occurrences starting 11/12/2022 until 11/13/2023, 1 completed End: 11-13-2023 Blood count reticulocyte automated RETICULOCYTE COUNT Lab STAT 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) 6 Occurrences starting 11/12/2022 until 11/13/2023, 1 completed [facility] Comment on above: 6 Occurrences starting 11/12/2022 until 11/13/2023, 1 completed CBC panel - Blood by Automated count [facility] End: 08-14-2023 CBC panel - Blood by Automated count COMPLETE BLOOD COUNT Lab Routine Iron deficiency anemia, unspecified iron deficiency anemia type Alcoholic cirrhosis, unspecified whether ascites present (HCC) 1 Occurrences starting 08/14/2022 until 08/14/2023 [facility] Comment on above: 1 Occurrences starting 08/14/2022 until 08/14/2023 CBC panel - Blood by Automated count COMPLETE BLOOD COUNT Lab Routine Nausea Ordered: 10/27/2022 [facility] Comment on above: Ordered: 10/27/2022 End: 03-13-2023 CBC W Auto Differential panel - Blood COMPLETE BLOOD COUNT W/DIFF Lab STAT 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 for 12 Occurrences starting 03/13/2022 until 03/13/2023, 1 completed [facility] [employer] Work Phone: Comment on above: monthly for 12 Occurrences starting 03/2022 until 03/13/2023, 1 completed End: 11-13-2023 CBC W Auto Differential panel - Blood COMPLETE BLOOD COUNT W/DIFF Lab STAT 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) 6 Occurrences starting 11/12/2022 until 11/13/2023, 1 completed [employer] Work Phone: Comment on above: 6 Occurrences starting 11/12/2022 until 11/13/2023, 1 completed Creatine kinase total CREATINE K INASE Lab Routine Muscle soreness Ordered: 08/29/2022 [employer] Work Phone: Comment on above: Ordered: 08/29/2022 ESOPHAGOGASTRODUODEN OSCOPY, GENERAL ANESTHESIA [facility] Hepatic function panel [employer] Work Phone: End: 03-13-2023 Hepatic function panel HEPATIC FUNCTION PANEL Lab STAT 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 Comment on above: monthly for 12 Occurrences starting 03/2022 until 03/13/2023, 1 completed End: 08-14-2023 Hepatic function panel HEPATIC FUNCTION PANEL Lab Routine Iron deficiency anemia, unspecified iron deficiency anemia type Alcoholic cirrhosis, unspecified whether ascites present (HCC) 1 Occurrences starting 08/14/2022 until 08/14/2023 [facility] Comment on above: 1 Occurrences starting 08/14/2022 until 08/14/2023 Hepatic function panel HEPATIC F UNCTION PANEL Lab Routine Nausea Ordered: 10/27/2022 [facility] Comment on above: Ordered: 10/27/2022 End: 11-13-2023 Hepatic function panel HEPATIC FUNCTION PANEL Lab STAT 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) 6 Occurrences starting 11/12/2022 until 11/13/2023, 1 completed [facility] Comment on above: 6 Occurrences starting 11/12/2022 until 11/13/2023, 1 completed Hfe hemochromatosis gene anal common variants HEMOCHROMATOSIS DNA TEST Lab Routine Alcoholic hepatitis without ascites Alcoholic cirrhosis of liver without ascites (HCC) 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) 08/25/2022 12:41 PM EST [facility] Hfe hemochromatosis gene anal common variants HEMOCHROMATOSIS DNA TEST Lab Routine Increased storage iron 11/13/2022 11:58 AM EST [facility] Lactate dehydrogenase ldh [facility] End: 03-13-2023 Lactate dehydrogenase ldh LDH Lab STAT Hemolytic anemi a due to warm antibody (HCC) monthly for 12 Occurrences starting 03/13/2022 until 03/13/2023, 1 completed [facility] Comment on above: monthly for 12 Occurrences starting 03/2022 until 03/13/2023, 1 completed End: 11-13-2023 Lactate dehydrogenase ldh LDH Lab STAT Hemolytic anemi a due to warm antibody (HCC) 6 Occurrences starting 11/12/2022 until 11/13/2023, 1 completed [facility] Comment on above: 6 Occurrences starting 11/12/2022 until 11/13/2023, 1 completed Prothrombin time [facility] End: 08-14-2023 Prothrombin time PROTHROMBIN TIME AND INR Lab Routine Iron deficiency anemia, unspecified iron deficiency anemia type Alcoholic cirrhosis, unspecified whether ascites present (HCC) 1 Occurrences starting 08/14/2022 until 08/14/2023 [facility] Comment on above: 1 Occurrences starting 08/14/2022 until 08/14/2023 Prothrombin time PROTHROMBIN IVAN E AND INR Lab Routine Nausea Ordered: 10/27/2022 [employer] Work Phone: Comment on above: Ordered: 10/27/2022 Smooth muscle antibo dy measurement SMOOTH MUSC ATB SCRN & TITR Lab Routine Alcoholic hepatitis without ascites Alcoholic cirrhosis of liver without ascites (HCC) 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) 08/25/2022 12:41 PM EST [facility] Unlisted chemistry procedure MIS CELLANEOUS SEND OUT TEST Lab Routine Alcoholic hepatitis without ascites Alcoholic cirrhosis of liver without ascites (HCC) 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) 08/25/2022 12:41 PM EST [facility] Immunizations Immunization Date Immunization Notes Care Provider Vandana [email or web address] 10-27-2022 hepatitis B vaccine, unspecified formulation Marcello Ibanez MD Work Phone: [facility] 08-14-2022 hepatitis B vaccine, adult dosage Saskia Gricelda [employer] Work Phone: [facility] 01-08-2021 Moderna Monovalent (12+ yrs) COVID-19 vaccine, mRNA, spike protein, LNP, PF, 100 mcg/0.5 mL (OOL=955) Marcello Ibanez MD Work Phone: [facility] 12-11-2020 Moderna Monovalent (12+ yrs) COVID-19 vaccine, mRNA, spike protein, LNP, PF, 100 mcg/0.5 mL (JKM=412) Marcello Ibanez MD Work Phone: [facility] NEGATED: Highlighted row has not occurred!08-26-2023 influenza virus vaccine, unspecified formulation Lisa [facility] Payers Date Payer Category Payer Unknown [id number] 2012 Unknown [id number] 2. [id number] 1984 Unknown [id number] 2.16. 840.1.782520.3.579.2.732 1984 Unknown [id number] 2.16. 840.1.273913.3.579.2.732 1984 Unknown [id number] 2.16. 840.1.019302.3.579.2.732 1984 Unknown [id number] 2.16.8 40.1.591542.3.579.2. 1984 Unknown [id number] 2.16.8 40.1.497383.3.579.2. 1984 Unknown [id number] 2.16.8 40.1.307023.3.579.2. 1984 Unknown [id number] 2.16.8 40.1.484704.3.579.2. 1984 Unknown [id number] 2.16.8 40.1.533988.3.579.2 1984 Unknown [id number] 2.16.8 40.1.560614.3.579.2 1984 Unknown [id number] 2.16.8 40.1.103151.3.579.2 1984 Unknown [id number] 2.16.8 40.1.619501.3.579.2 1984 Unknown [id number] 2.16.8 40.1.491820.3.579.2 1984 Unknown [id number] 2.16.8 40.1.076749.3.579.2 1984 Unknown [id number] 2.16.8 40.1.620200.3.579.2 1984 Unknown [id number] 2.16.8 40.1.623012.3.579.2 1984 Unknown [id number] 2.16.8 40.1.583150.3.579.2 1984 Unknown [id number] 2.16.8 40.1.941746.3.579.2 1984 Unknown [id number] 2.16.8 40.1.908472.3.579.2 1984 Unknown [id number] 2.16.8 40.1.401913.3.579.2. 1984 Unknown [id number] 2.16.8 40.1.490455.3.579.2 1984 Unknown [id number] 2.16.8 40.1.121892.3.579.2 1984 Unknown [id number] 2.16.8 40.1.291985.3.579.2 1984 Unknown [id number] 2.16.8 40.1.123074.3.579.2 1984 Unknown [id number] 2.16.8 40.1.163577.3.579.2 1984 Unknown [id number] 2.16.8 40.1.920289.3.579.2 1984 Unknown [id number] 2.16.8 40.1.117737.3.579.2 1984 Unknown [id number] 2.16.8 40.1.579284.3.579.2 1984 Unknown [id number] 2.16.8 40.1.145345.3.579.2 1984 Unknown [id number] 2.16.8 40.1.343453.3.579.2 1984 Unknown [id number] 2.16.8 40.1.241119.3.579.2 1984 Unknown [id number] 2.16.8 40.1.046638.3.579.2 1984 Unknown [id number] 2.16.8 40.1.824860.3.579.2 1984 Unknown [id number] 2.16.8 40.1.169390.3.579.2 1984 Unknown [id number] 2.16.8 40.1.475824.3.579.2 1984 Unknown [id number] 2.16.8 40.1.764116.3.579.2.727 1984 Unknown [id number] 2.16.8 40.1.496840.3.579.2. 1984 Unknown [id number] 2.16.8 40.1.901082.3.579.2. 1984 Unknown [id number] 2.16.8 40.1.965112.3.579.2. 1984 Unknown [id number] 2.16.8 40.1.191811.3.579.2. 1984 Unknown [id number] 2.16.8 40.1.484746.3.579.2. 1984 Unknown [id number] 2.16.8 40.1.869727.3.579.2. 1984 Unknown [id number] 2.16.8 40.1.072993.3.579.2. 1984 Unknown [id number] 2.16.8 40.1.588238.3.579.2. 1984 Unknown [id number] 2.16.8 40.1.670129.3.579.2. 1984 Unknown [id number] 2.16.8 40.1.806575.3.579.2. 1984 Unknown [id number] 2.16.8 40.1.717471.3.579.2. 1984 Unknown [id number] 2.16.8 40.1.988801.3.579.2. 1984 Unknown [id number] 2.16.8 40.1.103745.3.579.2 1984 Unknown [id number] 2.16.8 40.1.907605.3.579.2 Social History Date Type Detail Facility Tobacco Tobacco smoking consumption unknown [facility] Comment on above: daily chew pt denies Start: 02-27-2023 End: 12-30-2023 Sex Assigned At Male [facility] Start: 1985 [facility] Tobacco smoking stat us [facility] Tobacco smoking consumption unknown [facility] Start: 08-14-2022 End: 03-17-2024 Tobacco smoking status NHIS Ex-smoker [facility] Comment on above: quit cigarettes 9 madelaine carey, quit 9 years ago End: 09-17-2008 History of tobacco use Current smoker [facility] End: 09-17-2008 History of tobacco use Cigarette Smoker [facility] Start: 08-14-2022 Tobacco use and exposure User of smokeless tobacco [facility] History of tobacco use Chews Tobacco [facility] Start: 08-05-2022 End: 12-16-2022 Exposure to SARS-CoV-2 (event) Not sure [facility] Start: 08-19-2022 End: 08-29-2022 Exposure to SARS-CoV-2 (event) Unable to assess [facility] Work Phone: Tobacco smoking status No Smokin g Status Entered [facility] Tobacco smoking status Smokeless tobacco user within last 30 days [facility] Comment on above: quit cigarettes 9 madelaine carey, quit 9 years ago Start: 12-30-2023 Alcohol intake Current drinke r of alcohol (finding) [facility] Start: 02-27-2023 End: 12-30-2023 Alcohol intake [facility] Start: 12-30-2023 Tobacco Comment Once every cou ple of weeks [facility] Within the last year , have you been afraid of your partner or ex-partner? No [facility] Are you now , , , , never or living with a partner? Never [facility] How hard is it for y ou to pay for the very basics like food, housing, medical care, and heating Very hard [facility] Do you feel stress - tense, restless, nervous, or anxious, or unable to sleep at night because your mind is troubled all the time - these days [OSQ] Very much [facility] The food that (I/we) bought just didn't last, and (I/we) didn't have money to get more. Sometimes true [facility] In the past 12 month s, was there a time when you were not able to pay the mortgage or rent on time? Yes [facility] Start: 02-27-2023 Education 12 [facility] Procedure Code Equipment Code Equipment [...] and able to swallow. [Order 4 End] [id number] Start: 01-17-2022 Functional Status Date Assessment Result Facility 03-17-2024 Functional Status No [facility] 01-27-2024 Functional Status N/A [facility] 12-23-2023 Functional Status N/A [facility] 12-11-2023 Functional Status No [facility] 12-11-2023 Functional Status [facility] 11-11-2023 Functional Status N/A [facility] 10-28-2023 Functional Status N/A [facility] 09-21-2023 Functional Status N/A [facility] 09-01-2023 Functional Status N/A [facility] 08-26-2023 Functional Status N/A [facility] 07-24-2023 Functional Status N/A [facility] 06-19-2023 Functional Status N/A [facility] 03-22-2023 Functional Status N/A [facility] 02-18-2023 Functional Status N/A [facility] 02-17-2022 Functional Status N/A [facility] Clinical Notes 12-07-2019 to 03-21-2024 Margaret Zuñiga MD - 12/30/2023 4:50 PM EDT Note Date & Type Note Facility 03-21-2024 Note Oncology Progress No te Chief Complaint Follow up on anemia, just wants to know lab results. Diagnoses 1. Hemolytic anemia (D58.9: Hereditary hemolytic anemia, unspecified) 2. Cirrhosis (K74.60: Unspecified cirrhosis of liver) Anemia (D64.9: Anemia, unspecified) Oncological History/ROS/PE/Assessment and Plan Mr. Ralph is a 38yr old male former smoker with a history of anemia, cirrhosis, alcohol abuse, cholelithiasis, diarrhea, elevated INR, epigastric pain, esophageal varices, HTN, headache, hypokalemia, iron deficiency anemia, nausea, portal venous hypertension, severe back pain, thrombocytopenia, varicose veins, venous ulcer, vitamin D deficiency, cellulitis, and left leg abscess. Surgical history includes jaw surgery and I&D lower LE. Medications include cholecalciferol, furosemide, lactulose, multivitamin, naloxone, ondansetron, oxycodone, potassium chloride, spironolactone and Bactrim. He denies personal history of cancer. He is unsure of family cancer history but does not believe any family members had cancer. He is referred by Lisa Lopez NP for iron deficiency anemia and thrombocytopenia. Recent labs show hemoglobin 11.5 with elevated MCV and MCH. Wbc 3.8, platelets 73,000. Elevated LFTs. Iron saturation 99% and ferritin 527. Initial Exam 02/25/24: he took a few days of iron supplements leading up to lab draw, but not consistently taking energy is low right now, comes and goes. Has been this way for the last few years sleeps well, no issues with this denies any shortness of breath or chest pain. He does have some constant muscular pain over his pectoral muscles that is constant, has been for about a year. denies dizziness appetite is lower when its hot out. He generally eats smaller meals throughout the day. Denies early satiety every once in a while will have nausea and vomiting. takes lactulose for high ammonia. Usually takes more than he should, has a bowel movement once a day with this denies black, tarry stool or other bleeding had an episode of pale stool last Thursday. No recurrence of this was going to have his gallbladder removed but then told his physician didn't want to so cancelled that denies numbness and tingling he gets headaches, doesn't take anything for them. They are mild, but annoying and fairly frequent stays hydrated well no vision changes or confusion denies any significant pain denies any bruising or bleeding issues will rarely get muscle cramps. Denies restless legs feels cold a lot. Denies ice cravings has noticed some swelling this week bc he has been out of Lasix for about a week now. Has been busy at work and hasn't been able to refill this, but plans to today after our appointment smoked about 15-20yrs ago. Maybe for a few years hasn't had any alcohol in a few years. When he was drinking he would drink at least 6 beers/day 03/14/24 no changes in his symptoms since last visit, still with sporadic energy drops still with headaches nearly every day we discussed his labs which do show hemolytic anemia, basil negative. Physical Exam General: No acute distress. Respiratory: Lungs are CTA, Respirations are non-labored, Symmetrical chest wall expansion Cardiovascular: Normal rate and rhythm. No murmurs noted. No edema Gastrointestinal: Soft, Non-tender, Normal bowel sounds, no guarding, no tenderness. Neurologic: Alert, Oriented, Normal sensory Cognition and Speech: Oriented, Speech clear and coherent, Functional cognition intact. Psychiatric: Cooperative, Appropriate mood & affect. Integumentary: Warm, Dry, No rash. 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 Tanvir Castillo Black, last visit April 2023 Initially treated with 1mg/kg prednisone January 2022 but he did not tolerate this d/t insomnia and agitation, so stopped after 7 days. He was switched to MMF 1000mg BID along with prophylactic Bactrim. He did not feel well on the MMF, so this was dose reduced to 500mg BID. He still had generalized toxicity from this and decided to stop taking it, although his counts had improved on therapy. Repeat hemolysis labs March 2024 confirm hemolytic anemia. basil is negative he will take folic acid 1mg daily. Labs remain fairly stable overall, no transfusion needs currently macrocytosis- from chronic alcohol use. Last drink was January 2022 per patient thrombocytopenia from cirrhosis d/t chronic alcohol use stable overall Iron studies elevated. 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 This is not associated with increased risk to develop clinical symptoms of HH and elevated levels are likely from liver disease and not a result of this. Wbc count intermittently low, mild. Pancytopenia possibly cirrhosis related but will follow closely with repeat labs Follow-up With When Contact Information Janet HUERTA, Ella Polk, ON[facility] [address] (more content not included)... [facility] 02-29-2024 Note Oncology Progress No te Chief Complaint New pt here for Iron deficiency, Pt states that he seen a Hem doctor in [place] about a [address] Mayuri Black. Pt states he never received Iron because his levels were up and down the whole time. Diagnoses 1. Pancytopenia (D61.818: Other pancytopenia) 2. Liver cirrhosis, alcoholic (K70.30: Alcoholic cirrhosis of liver without ascites) 3. Iron overload (E83.19: Other disorders of iron metabolism) Oncological History/ROS/PE/Assessment and Plan Mr. Ralph is a 38yr old male former smoker with a history of anemia, cirrhosis, alcohol abuse, cholelithiasis, diarrhea, elevated INR, epigastric pain, esophageal varices, HTN, headache, hypokalemia, iron deficiency anemia, nausea, portal venous hypertension, severe back pain, thrombocytopenia, varicose veins, venous ulcer, vitamin D deficiency, cellulitis, and left leg abscess. Surgical history includes jaw surgery and I&D lower LE. Medications include cholecalciferol, furosemide, lactulose, multivitamin, naloxone, ondansetron, oxycodone, potassium chloride, spironolactone and Bactrim. He denies personal history of cancer. He is unsure of family cancer history but does not believe any family members had cancer. He is referred by Lisa Lopez NP for iron deficiency anemia and thrombocytopenia. Recent labs show hemoglobin 11.5 with elevated MCV and MCH. Wbc 3.8, platelets 73,000. Elevated LFTs. Iron saturation 99% and ferritin 527. Initial Exam 02/25/24: he took a few days of iron supplements leading up to lab draw, but not consistently taking energy is low right now, comes and goes. Has been this way for the last few years sleeps well, no issues with this denies any shortness of breath or chest pain. He does have some constant muscular pain over his pectoral muscles that is constant, has been for about a year. denies dizziness appetite is lower when its hot out. He generally eats smaller meals throughout the day. Denies early satiety every once in a while will have nausea and vomiting. takes lactulose for high ammonia. Usually takes more than he should, has a bowel movement once a day with this denies black, tarry stool or other bleeding had an episode of pale stool last Thursday. No recurrence of this was going to have his gallbladder removed but then told his physician didn't want to so cancelled that denies numbness and tingling he gets headaches, doesn't take anything for them. They are mild, but annoying and fairly frequent stays hydrated well no vision changes or confusion denies any significant pain denies any bruising or bleeding issues will rarely get muscle cramps. Denies restless legs feels cold a lot. Denies ice cravings has noticed some swelling this week bc he has been out of Lasix for about a week now. Has been busy at work and hasn't been able to refill this, but plans to today after our appointment smoked about 15-20yrs ago. Maybe for a few years hasn't had any alcohol in a few years. When he was drinking he would drink at least 6 beers/day Physical Exam General: Alert and oriented, No acute distress. Eye: Pupils are equal, round and reactive to light, Normal conjunctiva. HENT: Normocephalic, Normal hearing. Neck: Supple, Non-tender, No jugular venous distention, No thyromegaly. Respiratory: Lungs are CTA, Respirations are non-labored, Symmetrical chest wall expansion Cardiovascular: Normal rate and rhythm. No murmurs noted. No edema Gastrointestinal: Soft, Non-tender, Normal bowel sounds, no guarding, no tenderness. Lymphatics: negative. Musculoskeletal Normal range of motion. Neurologic: Alert, Oriented, Normal sensory, Cranial Nerves II-XII are grossly intact. Cognition and Speech: Oriented, Speech clear and coherent, Functional cognition intact. Psychiatric: Cooperative, Appropriate mood & affect. Integumentary: Warm, Dry, No rash. 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 Tanvir Jaramillo Anna Black, last visit April 2023 Initially treated with 1mg/kg prednisone January 2022 but he did not tolerate this d/t insomnia and agitation, so stopped after 7 days. He was switched to MMF 1000mg BID along with prophylactic Bactrim. He did not feel well on the MMF, so this was dose reduced to 500mg BID. He still had generalized toxicity from this and decided to stop taking it, although his counts had improved on therapy. macrocytosis- from chronic alcohol use. Last drink was January 2022 per patient thrombocytopenia from cirrhosis d/t chronic alcohol use stable overall Bilirubin has remained significantly elevated without major changes over time. Iron studies are actually elevated, likely d/t liver disease, but will rule out true iron overload Wbc count now low as well as of February 2024. Pancytopenia possibly cirrhosis related but will follow closely We will plan to check repeat cbc with peripheral smear, haptoglobin, basil, ld (more content not included)... [facility] 02-25-2024 Hospital Discharge instructions Follow Up Care 02/25/2024 10:04:03 With:Janet HUERTA, Ella Polk, ONC Address: [facility] [address] [place] [phone] When: Unknown Comments:start folic acid 1mg daily- send to [facility], cmp, ldh, reticulocytes, haptoglobin in 1mofollow-up with Dr. Lees in 1mo [facility] 02-05-2024 Hospital Discharge instructions Follow Up Care 02/05/2024 13:11:28 With:Janet HUERTA, Ella Polk, ONC Address: [facility] [place] [phone]- [phone] When: Unknown Comments:get records from [facility] hematologyfollow-up in 2-3 weekswill get labs prior to visit [facility] 01-27-2024 Hospital Discharge instructions Patient Education 01/27/2024 11:32:44 Peripheral Vascular Disease Peripheral Vascular Disease Peripheral vascular disease (PVD) is a disease of the blood vessels. PVD may also be called peripheral artery disease (PAD) or poor circulation. PVD is the blocking or hardening of the arteries anywhere within the circulatory system beyond the heart. This can result in a decreased supply of blood to the arms, legs, and internal organs, such as the stomach or kidneys. However, PVD most often affects a person's lower legs and feet. Without treatment, PVD often worsens. PVD can lead to acute limb ischemia. This occurs when an arm or leg suddenly has trouble getting enough blood. This is a medical emergency. What are the causes? The most common cause of PVD is atherosclerosis. This is a buildup of fatty material and other substances (plaque)inside your arteries. Pieces of plaque can break off from the martin of an artery and become stuck in a smaller artery, blocking blood flow and possibly causing acute limb ischemia. Other common causes of PVD include: Blood clots that form inside the blood vessels. Injuries to blood vessels. Diseases that cause inflammation of blood vessels or cause blood vessel tightening (spasms). What increases the risk? The following factors may make you more likely to develop this condition: A family history of PVD. Common medical conditions, including: ?High cholesterol. ?Diabetes. ?High blood pressure (hypertension). ?Heart disease. ?Known atherosclerotic disease in another area of the body. ?Past injury, such as amezquita or a broken bone. Other medical conditions, such as: ?Buerger's disease. This is caused by inflamed blood vessels in your hands and feet. ?Some forms of arthritis. ? defects that affect the arteries in your legs. ?Kidney disease. Using tobacco and nicotine products. Not getting enough exercise. Obesity. Being age 65 or older, or being age 50 or older and having the other risk factors. What are the signs or symptoms? This condition may cause different symptoms. Your symptoms depend on what body part is not getting enough blood. Common signs and symptoms include: Cramps in your buttocks, legs, and feet. Intermittent claudication. This is pain and weakness in your legs during activity that resolves with rest. Leg pain at rest and leg numbness, tingling, or weakness. Coldness in a leg or foot, especially when compared to the other leg or foot. Skin or hair changes. These can include: ?Hair loss. ?Shiny skin. ?Pale or bluish skin. ?Thick toenails. Inability to get or maintain an erection (erectile dysfunction). Tiredness (fatigue). Weak pulse or no pulse in the feet. People with PVD are more likely to develop open wounds (ulcers) and sores on their toes, feet, or legs. The ulcers or sores may take longer than normal to heal. How is this diagnosed? PVD is diagnosed based on your signs and symptoms, a physical exam, and your medical history. You may also have other tests to find the cause. Tests include: Ankle-brachial index test.This test compares the blood pressure readings of the legs and arms. ?This may also include an exercise ankle-brachial index test in which you walk on a treadmill to check your symptoms. Doppler ultrasound. This takes pictures of blood flow through your blood vessels. Imaging studies that use dye to show blood flow. These are: ?CT angiogram. ?Magnetic resonance angiogram, or MRA. How is this treated? Treatment for PVD depends on the cause of your condition, how severe your symptoms are, and your age. Underlying causes need to be treated and controlled. These include long-term (chronic) conditions, such as diabetes, high cholesterol, and hypertension. Treatment may include: Lifestyle changes, such as: ?Quitting tobacco use. ?Exercising regularly. ?Following a low-fat, low-cholesterol diet. ?Not drinking alcohol. Taking medicines, such as: ?Blood thinners to prevent blood clots. ?Medicines to improve blood flow. ?Medicines to improve cholesterol levels. Procedures, such as: ?Angioplasty. This uses an inflated balloon to open a blocked artery and improve blood flow. ?Stent implant. This inserts a small mesh tube to keep a blocked artery open. ?Peripheral bypass surgery. This reroutes blood flow around a blocked artery. ?Surgery to remove tissue from an infected wound (debridement). ?Amputation. This is surgical removal of the affected limb. It may be necessary in cases of acute limb ischemia when medical or surgical treatments have not helped. Follow these instructions at home: Medicines Take drgo-xuk-mekiium and prescription medicines only as told by your health care provider. If you are taking blood thinners: ?Talk with your health care provider before you take any medicines that contain aspirin or NSAIDs, such as ibuprofen. These medicines increase your risk for dangerous bleeding. ?Take your medicine exactly as told, at the same time every day. ?Avoid activities that could cause injury or bruising, and follow instructions about how to prevent falls. ?Wear a medical alert bracelet or carry a card that lists what medicines you take. Lifestyle Exercise regularly. Ask your health care provider about some good activities for you. Talk with your health care provider about maintaining a healthy weight. If needed, ask about losing weight. Eat a diet that is low in fat and cholesterol. If you need help, talk with your health care provider. Do not drink alcohol. Do not use any products that contain nicotine or tobacco. These products include cigarettes, chewing tobacco, and vaping devices, such as e-cigarettes. If you need help quitting, ask your health care provider. General instructions Take good care of your feet. To do this: ?Wear comfortable shoes that fit well. ?Check your feet often for any cuts or sores. Get an annual influenza vaccine. Keep all follow-up visits. This is important. Where to find more information Society for Vascular Surgery: vascular.org [place] [employer]: heart.org National Heart, Lung, and Blood Goodman: nhlbi.nih.gov Contact a health care provider if: You have leg cramps while walking. You have leg pain when you rest. Your leg or foot feels cold. Your skin changes color. You have erectile dysfunction. You have cuts or sores on your legs or feet that do not heal. Get help right away if: You have sudden changes in color and feeling of your arms or legs, such as: ?Your arm or leg turns cold, numb, and blue. ?Your arm or leg becomes red, warm, swollen, painful, or numb. You have any symptoms of a stroke. BE FAST is an easy way to remember the main warning signs of a stroke: ?B - Balance. Signs are dizziness, sudden trouble walking, or loss of balance. ?E - Eyes. Signs are trouble seeing or a sudden change in vision. ?F - Face. Signs are sudden weakness or numbness of the face, or the face or eyelid drooping on one side. ?A - Arms. Signs are weakness or numbness in an arm. This happens suddenly and usually on one side of the body. ?S - Speech. Signs are sudden trouble speaking, slurred speech, or trouble understanding what people say. ?T - Time. Time to call emergency services. Write down what time symptoms started. You have other signs of a stroke, such as: ?A sudden, severe headache with no known cause. ?Nausea or vomiting. ?Seizure. You have chest pain or trouble breathing. These symptoms may represent a serious problem that is an emergency. Do not wait to see if the symptoms will go away. Get medical help right away. Call your local emergency services (911 in the [place] Do not drive yourself to the hospital. Summary Peripheral vascular disease (PVD) is a disease of the blood vessels. PVD is the blocking or hardening of the arteries anywhere within the circulatory system beyond the heart. PVD may cause different symptoms. Your symptoms depend on what part of your body is not getting enough blood. Treatment for PVD depends on what caused it, how severe your symptoms are, and your age. This information is not intended to replace advice given to you by your health care provider. Make sure you discuss any questions you have with your health care provider. Document Revised: 02/25/2021 Document Reviewed: 02/25/2021 [employer] Patient Education 2022 [employer]. 01/27/2024 11:32:41 Iron Deficiency Anemia, Adult Iron Deficiency Anemia, Adult Iron deficiency anemia is a condition in which the concentration of red blood cells or hemoglobin in the blood is below normal because of too little iron. Hemoglobin is a substance in red blood cells that carries oxygen to the body's tissues. When the concentration of red blood cells or hemoglobin is too low, not enough oxygen reaches these tissues. Iron deficiency anemia is usually long-lasting, and it develops over time. It may or may not cause symptoms. It is a common type of anemia. What are the causes? This condition may be caused by: Not enough iron in the diet. Abnormal absorption in the gut. Blood loss. What increases the risk? You are more likely to develop this condition if you get menstrual periods (menstruate) or are . What are the signs or symptoms? Symptoms of this condition may include: Pale skin, lips, and nail beds. Weakness, dizziness, and getting tired easily. Shortness of breath when moving or exercising. Cold hands or feet. Mild anemia may not cause any symptoms. How is this diagnosed? This condition is diagnosed based on: Your medical history. A physical exam. Blood tests. How is this treated? This condition is treated by correcting the cause of your iron deficiency. Treatment may involve: Adding iron-rich foods to your diet. Taking iron supplements. If you are or , you may need to take extra iron because your normal diet usually does not provide the amount of iron that you need. Increasing vitamin C intake. Vitamin C helps your body absorb iron. Your health care provider may recommend that you take iron supplements along with a glass of orange juice or a vitamin C supplement. Medicines to make heavy menstrual flow emery wheel molder. Surgery or additional testing procedures to determine the cause of your anemia. You may need repeat blood tests to determine whether treatment is working. If the treatment does not seem to be working, you may need more tests. Follow these instructions at home: Medicines Take yecr-rzz-xyjqhew and prescription medicines only as told by your health care provider. This includes iron supplements and vitamins. This is important because too much iron can be harmful. ?For the best iron absorption, you should take iron supplements when your stomach is empty. If you cannot tolerate them on an empty stomach, you may need to take them with food. ?Do not drink milk or take antacids at the same time as your iron supplements. Milk and antacids may interfere with how your body absorbs iron. ?Iron supplements may turn stool (feces) a darker color and it may appear black. If you cannot tolerate taking iron supplements by mouth, talk with your health care provider about taking them through an IV or through an injection into a muscle. Eating and drinking Talk with your health care provider before changing your diet. Your provider may recommend that you eat foods that contain a lot of iron, such as: ?Liver. ?Low-fat (lean) beef. ?Breads and cereals that have iron added to them (are fortified). ?Eggs. ?Dried fruit. ?Dark green, leafy vegetables. To help your body use the iron from iron-rich foods, eat those foods at the same time as fresh fruits and vegetables that are high in vitamin C. Foods that are high in vitamin C include: ?Oranges. ?Peppers. ?Tomatoes. ?Mangoes. Managing constipation If you are taking an iron supplement, it may cause constipation. To prevent or treat constipation, you may need to: Drink enough fluid to keep your urine pale yellow. Take ymfl-tyg-cewnjle or prescription medicines. Eat foods that are high in fiber, such as beans, whole grains, and fresh fruits and vegetables. Limit foods that are high in fat and processed sugars, such as fried or sweet foods. General instructions Return to your normal activities as told by your health care provider. Ask your health care provider what activities are safe for you. Keep all follow-up visits. Contact a health care provider if: You feel nauseous or you vomit. You feel weak. You become light-headed when getting up from a sitting or lying down position. You have unexplained sweating. You develop symptoms of constipation. You have a heaviness in your chest. You have trouble breathing with physical activity. Get help right away if: You faint. If this happens, do not drive yourself to the hospital. You have an irregular or rapid heartbeat. Summary Iron deficiency anemia is a condition in which the concentration of red blood cells or hemoglobin in the blood is below normal because of too little iron. This condition is treated by correcting the cause of your iron deficiency. Take hofh-nvv-lfkgycs and prescription medicines only as told by your health care provider. This includes iron supplements and vitamins. To help your body use the iron from iron-rich foods, eat those foods at the same time as fresh fruits and vegetables that are high in vitamin C. Seek medical help if you have signs or symptoms of worsening anemia. This information is not intended to replace advice given to you by your health care provider. Make sure you discuss any questions you have with your health care provider. Document Revised: 10/01/2022 Document Reviewed: 10/01/2022 [employer] Patient Education 2022 [employer]. 01/27/2024 11:32:38 Peripheral Edema Peripheral Edema Peripheral edema is [...] may make a temporary dent in your skin (pitting edema). You may not be able to move your swollen arm or leg as much as usual. There are many causes of peripheral edema. It can happen because of a complication of other conditions such as heart failure, kidney disease, or a problem with your circulation. It also can be a side effect of certain medicines or happen because of an infection. It often happens to women during . Sometimes, the cause is not known. Follow these instructions at home: Managing pain, stiffness, and swelling Raise (elevate) your legs while you are sitting or lying down. Move around often to prevent stiffness and to reduce swelling. Do not sit or stand for long periods of time. Do not wear tight clothing. Do not wear garters on your upper legs. Exercise your legs to get your circulation going. This helps to move the fluid back into your blood vessels, and it may help the swelling go down. Wear compression stockings as told by your health care provider. These stockings help to prevent blood clots and reduce swelling in your legs. It is important that these are the correct size. These stockings should be prescribed by your doctor to prevent possible injuries. If elastic bandages or wraps are recommended, use them as told by your health care provider. Medicines Take jkcf-dfj-efleljk and prescription medicines only as told by your health care provider. Your health care provider may prescribe medicine to help your body get rid of excess water (diuretic). Take this medicine if you are told to take it. General instructions Eat a low-salt (low-sodium) diet as told by your health care provider. Sometimes, eating less salt may reduce swelling. Pay attention to any changes in your symptoms. Moisturize your skin daily to help prevent skin from cracking and draining. Keep all follow-up visits. This is important. Contact a health care provider if: You have a fever. You have swelling in only one leg. You have increased swelling, redness, or pain in one or both of your legs. You have drainage or sores at the area where you have edema. Get help right away if: You have edema that starts suddenly or is getting worse, especially if you are or have a medical condition. You develop shortness of breath, especially when you are lying down. You have pain in your chest or abdomen. You feel weak. You feel like you will faint. These symptoms may be an emergency. Get help right away. Call 911. Do not wait to see if the symptoms will go away. Do not drive yourself to the hospital. Summary Peripheral edema is swelling that is caused by a buildup of fluid. Peripheral edema most often affects the lower legs, ankles, and feet. Move around often to prevent stiffness and to reduce swelling. Do not sit or stand for long periods of time. Pay attention to any changes in [...] with your health care provider. Document Revised: 04/28/2022 Document Reviewed: 04/28/2022 [employer] Patient Education 2022 [employer]. 01/27/2024 11:32:35 Thrombocytopenia Thrombocytopenia Thrombocytopenia is a condition in [...] Follow these instructions at home: Medicines Take jutz-oeh-udzfzvp and prescription medicines only as told by [...] provider. Document Revised: 02/06/2022 Document Reviewed: 02/06/2022 [employer] Patient Education 2022 [employer]. 01/27/2024 11:32:32 Esophageal Varices Esophageal Varices Esophageal varices are enlarged veins [...] causes? This condition may be caused by: Scarring of the liver due to alcoholism. This is the most common cause. Long-term liver disease. Severe heart failure. A blood clot in a vein that supplies the liver. A disease that causes inflammation in the organs and other body areas. What are the signs or symptoms? Esophageal varices usually do not cause symptoms unless they start to bleed. Symptoms of bleeding esophageal varices include: Vomiting material that is bright red or that is black and looks like coffee grounds. Coughing up blood. Stools (feces) that look black and tarry. Dizziness or light-headedness. Low blood pressure. Loss of consciousness. How is this diagnosed? This condition is diagnosed with a procedure called endoscopy. During endoscopy, your health care provider uses a flexible tube with a small camera on the end of it (endoscope) to look down your throat and examine your esophagus. You may also have other tests, including: Imaging tests, such as a CT scan or ultrasound. Blood tests. How is this treated? This condition may be treated with: Medicines. Medicines are usually used to treat varices that are not bleeding. Procedures. Procedures are done to treat varices that are bleeding. They stop bleeding, or reduce pressure and the risk of bleeding. Procedures include: ?Placing an elastic band around the varices to keep them from bleeding. ?Replacing blood that you have lost due to bleeding. This may include getting a transfusion of blood or parts of blood, such as platelets or clotting factors. ?You may be given antibiotic medicine to help prevent infection. ?Getting an injection into the varices that causes it to shrink and close (sclerotherapy). You may also be given medicines that tighten blood vessels or change blood flow. ?Placing a balloon in the esophagus and inflating it. The balloon applies pressure to the bleeding veins to help stop the bleeding. ?Placing a small tube within the veins in the liver. This decreases blood flow and pressure in the esophageal varices. If other treatments do not work, you may need a liver transplant. Follow these instructions at home: Medicines Take yewt-dij-ssmtbtx and prescription medicines only as told by your health care provider. If you were prescribed an antibiotic medicine, take it as told by your health care provider. Do not stop taking the antibiotic even if you start to feel better. Do not take any NSAIDs (such as aspirin or ibuprofen) before first getting approval from your health care provider. General instructions Do not drink alcohol. Return to your normal activities as told by your health care provider. Ask your health care provider what activities are safe for you. Avoid vigorous physical activity. Ask your health care provider what exercises are safe for you. Keep all follow-up visits. Contact a health care provider if: You have pain in the abdomen. You are unable to eat or drink. Get help right away if: You vomit blood or have blood in your stool. You have stools that look black or tarry. You have chest pain. You feel dizzy or have low blood pressure. You lose consciousness. These symptoms may represent a serious problem that is an emergency. Do not wait to see if the symptoms will go away. Get medical help right away. Call your local emergency services (911 in the [place] Do not drive yourself to the hospital. Summary Esophageal varices are enlarged veins in the esophagus, the part of your body that moves food from your mouth to your stomach. Without treatment, esophageal varices eventually break and bleed, which can be life-threatening. Esophageal varices usually do not cause symptoms unless they start to bleed. Keep all follow-up visits. This is important. This information is not intended to replace advice given to you by your health care provider. Make sure you discuss any questions you have with your health care provider. Document Revised: 12/11/2020 Document Reviewed: 12/11/2020 [employer] Patient Education 2022 [employer]. 01/27/2024 11:32:31 Cirrhosis Cirrhosis Cirrhosis is long-term (chronic) liver [...] provider before taking any new medicines, including fyxy-vow-rjsbrrr medicines such as NSAIDs. Rest as needed. [...] provider. Document Revised: 06/06/2021 Document Reviewed: 06/06/2021 [employer] Patient Education 2022 [employer]. 01/27/2024 11:32:30 Alcoholic Liver Disease Alcoholic Liver Disease Alcoholic [...] can provide emotional support and guidance. Take psbn-hsk-ufswcgx and prescription medicines only as told by [...] provider. Document Revised: 06/06/2021 Document Reviewed: 06/06/2021 [employer] Patient Education 2022 [employer]. 01/27/2024 11:32:27 DASH Eating Plan DASH Eating Plan DASH stands for Dietary Approaches to Stop Hypertension. The DASH eating plan is a healthy eating plan that has been shown to: Reduce high blood pressure (hypertension). Reduce your risk for type 2 diabetes, heart disease, and stroke. Help with weight loss. What are tips for following this plan? Reading food labels Check food labels for the amount of salt (sodium) per serving. Choose foods with less than 5 percent of the Daily Value of sodium. Generally, foods with less than 300 milligrams (mg) of sodium per serving fit into this eating plan. To find whole grains, look for the word whole as the first word in the ingredient list. Shopping Buy products labeled as low-sodium or no salt added. Buy fresh foods. Avoid canned foods and pre-made or frozen meals. Cooking Avoid adding salt when cooking. Use salt-free seasonings or herbs instead of table salt or sea salt. Check with your health care provider or pharmacist before using salt substitutes. Do not perla foods. Cook foods using healthy methods such as baking, boiling, grilling, roasting, and broiling instead. Cook with heart-healthy oils, such as olive, canola, avocado, soybean, or sunflower oil. Meal planning Eat a balanced diet that includes: ?4 or more servings of fruits and 4 or more servings of vegetables each day. Try to fill one-half of your plate with fruits and vegetables. ?6 8 servings of whole grains each day. ?Less than 6 oz (170 g) of lean meat, poultry, or fish each day. A 3-oz (85-g) serving of meat is about the same size as a deck of cards. One egg equals 1 oz (28 g). ?2 3 servings of low-fat dairy each day. One serving is 1 cup (237 mL). ?1 serving of nuts, seeds, or beans 5 times each week. ?2 3 servings of heart-healthy fats. Healthy fats called omega-3 fatty acids are found in foods such as walnuts, flaxseeds, fortified milks, and eggs. These fats are also found in cold-water fish, such as sardines, salmon, and mackerel. Limit how much you eat of: ?Canned or prepackaged foods. ?Food that is high in trans fat, such as some fried foods. ?Food that is high in saturated fat, such as fatty meat. ?Desserts and other sweets, sugary drinks, and other foods with added sugar. ?Full-fat dairy products. Do not salt foods before eating. Do not eat more than 4 egg yolks a week. Try to eat at least 2 vegetarian meals a week. Eat more home-cooked food and less restaurant, buffet, and fast food. Lifestyle When eating at a restaurant, ask that your food be prepared with less salt or no salt, if possible. If you drink alcohol: ?Limit how much you use to: ?0 1 drink a day for women who are not . ?0 2 drinks a day for men. ?Be aware of how much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 sugar or caffeine, such as energy drinks, sports drinks, and soda. Avoid alcohol. Avoid spicy or fatty foods. General instructions Take irzz-xta-rldjzex and prescription medicines only as told by your health care provider. Rest at home while you recover. Drink enough fluid to keep your urine pale yellow. Breathe slowly and deeply when you feel nauseous. Avoid smelling things that have strong odors. Wash your hands often using soap and water for at least 20 seconds. If soap and water are not available, use hand sourcing coordinator. Make sure that everyone in your household washes their hands well and often. Keep all follow-up visits. This is important. Contact a health care provider if: Your nausea gets worse. Your nausea does not go away after two days. You vomit multiple times. You cannot drink fluids without vomiting. You have any of the following: ?New symptoms. ?A fever. ?A headache. ?Muscle cramps. ?A rash. ?Pain while urinating. You feel light-headed or dizzy. Get help right away if: You have pain in your chest, neck, arm, or jaw. You feel extremely weak or you faint. You have vomit that is bright red or looks like coffee grounds. You have bloody or black stools (feces) or stools that look like tar. You have a severe headache, a stiff neck, or both. You have severe pain, cramping, or bloating in your abdomen. You have difficulty breathing or are breathing very quickly. Your heart is beating very quickly. Your skin feels cold and clammy. You feel confused. You have signs of dehydration, such as: ?Dark urine, very little urine, or no urine. ?Cracked lips. ?Dry mouth. ?Sunken eyes. ?Sleepiness. ?Weakness. These symptoms may be an emergency. Get help right away. Call 911. Do not wait to see if the symptoms will go away. Do not drive yourself to the hospital. Summary Nausea is the feeling that you have an upset stomach or that you are about to vomit. Nausea on its own is not usually a serious concern, but it may be an early sign of a more serious medical problem. If vomiting develops, or if you are not able to drink enough fluids, you are at risk of becoming dehydrated. Follow recommendations for eating and drinking and take spwq-afc-erluszt and prescription medicines only as told by your health care provider. Contact a health care provider right away if your symptoms worsen or you have new symptoms. Keep all follow-up visits. This is important. This information is not intended to replace advice given to you by your health care provider. Make sure you discuss any questions you have with your health care provider. Document Revised: 02/28/2022 Document Reviewed: 02/28/2022 [employer] Patient Education 2022 [employer]. 12/23/2023 12:42:14 Cellulitis, Adult Cellulitis, Adult Cellulitis is a [...] Follow these instructions at home: Medicines Take siac-zlo-rrvjpjr and prescription medicines only as told by [...] such as antibiotic medicines or antihistamines. Take nfgb-ida-jqsklby and prescription medicines only as told by your health care provider. If you were prescribed an antibiotic medicine, do not stop taking the antibiotic even if you start to feel better. Contact a health care provider if your symptoms do not begin to improve within 1 2 days of starting treatment or your symptoms get worse. Keep all [...] with your health care provider. Document Revised: 06/04/2022 Document Reviewed: 06/05/2022 [employer] Patient Education 2022 [employer] 12/23/2023 12:42:12 Esophageal Variceal Ligation Esophageal Variceal Ligation Esophageal variceal ligation (EVL) is a surgical procedure to treat or prevent bleeding in the part of the body that moves food from the mouth to the stomach (esophagus). The procedure is also called esophageal variceal banding. You may need this procedure if swollen veins (varices) form inside your esophagus. These veins may rupture and bleed. You may be at risk for bleeding from esophageal varices if you have advanced liver disease. In this procedure, a surgeon uses a scope, or endoscope, to find the varices in your esophagus. Through the scope, elastic bands will be placed around the varices to cut off their blood supply. Over time, this causes scarring and helps stop or prevent bleeding. This procedure is usually repeated in 1 to 2 weeks. It may take 3 to 4 procedures to treat all the varices. Tell a health care provider about: Any allergies you have. All medicines you are taking, including vitamins, herbs, eye drops, creams, and huhv-lvk-iioblgn medicines. Any problems you or family members have had with anesthetic medicines. Any blood disorders you have. Any surgeries you have had. Any medical conditions you have. Whether you are or may be . What are the risks? Generally, this is a safe procedure. However, problems may occur, including: Bleeding. Infection. Sores (ulcers) where the bands were placed. A hole in the esophagus (perforation). Chest pain that lasts only a short time. Swallowing problems that last only a short time. Scarring and narrowing of the esophagus. This will cause swallowing problems that last for a long time. What happens before the procedure? Staying hydrated Follow instructions from your health care provider about hydration, which may include: Up to 2 hours before the procedure you may continue to drink clear liquids, such as water, clear fruit juice, black coffee, and plain tea. Eating and drinking restrictions Follow instructions from your health care provider about eating and drinking, which may include: 8 hours before the procedure stop eating heavy meals or foods, such as meat, fried foods, or fatty foods. 6 hours before the procedure stop eating light meals or foods, such as toast or cereal. 6 hours before the procedure stop drinking milk or drinks that contain milk. 2 hours before the procedure stop drinking clear liquids. Medicines Ask your health care provider about: Changing or stopping your regular medicines. This is especially important if you are taking diabetes medicines or blood thinners. Taking medicines such as aspirin and ibuprofen. These medicines can thin your blood. Do not take these medicines unless your health care provider tells you to take them. Taking yudq-bwc-qovpala medicines, vitamins, herbs, and supplements. General information You may need a blood test to find out your blood type in case you need a blood transfusion. Plan to have someone take you home from the hospital or clinic. Plan to have a responsible adult care for you for at least 24 hours after you leave the hospital or clinic. This is important. Ask your health care provider what steps will be taken to prevent infection. This may include taking antibiotic medicine. What happens during the procedure? An IV will be inserted into one of your veins. You will be given one or more of the following: ?A medicine to help you relax (sedative). ?A medicine to make you fall asleep (general anesthetic). An endoscope will be placed through your mouth, down your throat, and into your esophagus. A camera on the endoscope will send pictures to a monitor. Your surgeon will also be able to look down through the scope at your esophagus. When the tip of the scope reaches the right place in the esophagus, your surgeon will use a device to place bands on the varices. ?Usually 5 to 10 varices will be banded, moving from the stomach up toward the throat. The endoscope will be removed when the banding is done. The procedure may vary among health care providers and hospitals. What happens after the procedure? Your blood pressure, heart rate, breathing rate, and blood oxygen level will be monitored until you leave the hospital or clinic. If you do not have bleeding, you may be able to go home shortly after the procedure. If you were given a sedative during the procedure, it can affect you for several hours. Do not drive or operate machinery until your health care provider says that it is safe. You may be given a prescription medicine to help prevent bleeding (beta-melvin). Summary Esophageal variceal ligation (EVL) is a surgical procedure to treat or prevent bleeding in the esophagus. You may need this procedure if swollen veins or varices form inside your esophagus. In this procedure, elastic bands are placed around the varices through an endoscope to cut off their blood supply. Follow instructions from your health care provider about how to prepare for the procedure. If you do not have bleeding, you may be able to go home shortly after the procedure. This information is not intended to replace advice given to you by your health care provider. Make sure you discuss any questions you have with your health care provider. Document Revised: 12/11/2020 Document Reviewed: 12/11/2020 [employer] Patient Education 2022 [employer]. 12/23/2023 12:42:09 Nausea and Vomiting, Adult Nausea and Vomiting, Adult Nausea is the feeling that you have an upset stomach or that you are about to vomit. As nausea gets worse, it can lead to vomiting. Vomiting is when stomach contents forcefully come out of your mouth as a result of nausea. Vomiting can make you feel weak and cause you to become dehydrated. Dehydration can make you feel tired and thirsty, cause you to have a dry mouth, and decrease how often you urinate. Older adults and people with other diseases or a weak disease-fighting system (immune system) are at higher risk for dehydration. It is important to treat your nausea and vomiting as told by your health care provider. Follow these instructions at home: Watch your symptoms for any changes. Tell your health care provider about them. Eating and drinking Take an oral rehydration solution (ORS). This is a drink that is sold at pharmacies and retail stores. Drink clear fluids slowly and in small amounts as you are able. Clear fluids include water, ice chips, low-calorie sports drinks, and fruit juice that has water added (diluted fruit juice). Eat bland, yhwx-zt-jifnox foods in small amounts as you are able. These foods include bananas, applesauce, rice, lean meats, toast, and crackers. Avoid fluids that contain a lot of sugar or caffeine, such as energy drinks, sports drinks, and soda. Avoid alcohol. Avoid spicy or fatty foods. General instructions Take uceg-pmq-vfzitih and prescription medicines only as told by your health care provider. Drink enough fluid to keep your urine pale yellow. Wash your hands often using soap and water for at least 20 seconds. If soap and water are not available, use hand sourcing coordinator. Make sure that everyone in your household washes their hands well and often. Rest at home while you recover. Watch your condition for any changes. Take slow and deep breaths when you feel nauseous. Keep all follow-up visits. This is important. Contact a health care provider if: Your symptoms get worse. You have new symptoms. You have a fever. You cannot drink fluids without vomiting. Your nausea does not go away after 2 days. You feel light-headed or dizzy. You have a headache. You have muscle cramps. You have a rash. You have pain while urinating. Get help right away if: You have pain in your chest, neck, arm, or jaw. You feel extremely weak or you faint. You have persistent vomiting. You have vomit that is bright red or looks like black coffee grounds. You have bloody or black stools (feces) or stools that look like tar. You have a severe headache, a stiff neck, or both. You have severe pain, cramping, or bloating in your abdomen. You have difficulty breathing, or you are breathing very quickly. Your heart is beating very quickly. Your skin feels cold and clammy. You feel confused. You have signs of dehydration, such as: ?Dark urine, very little urine, or no urine. ?Cracked lips. ?Dry mouth. ?Sunken eyes. ?Sleepiness. ?Weakness. These symptoms may be an emergency. Get help right away. Call 911. Do not wait to see if the symptoms will go away. Do not drive yourself to the hospital. Summary Nausea is the feeling that you have an upset stomach or that you are about to vomit. As nausea gets worse, it can lead to vomiting. Vomiting can make you feel weak and cause you to become dehydrated. Follow instructions from your health care provider about eating and drinking to prevent dehydration. Take gbuk-zlo-yovbrpm and prescription medicines only as told by your health care provider. Contact your health care provider if your symptoms get worse, or you have new symptoms. Keep all follow-up visits. This is important. This information is not intended to replace advice given to you by your health care provider. Make sure you discuss any questions you have with your health care provider. Document Revised: 02/28/2022 Document Reviewed: 02/28/2022 [employer] Patient Education 2022 [employer]. 12/23/2023 12:22:45 Gallbladder Eating Plan Gallbladder Eating Plan High blood cholesterol, obesity, a sedentary lifestyle, an unhealthy diet, and diabetes are risk factors for developing gallstones. If you have a gallbladder condition, you may have trouble digesting fats and tolerating high fat intake. Eating a low-fat diet can help reduce your symptoms and may be helpful before and after having surgery to remove your gallbladder (cholecystectomy). Your health care provider may recommend that you work with a dietitian to help you reduce the amount of fat in your diet. What are tips for following this plan? General guidelines Limit your fat intake to less than 30% of your total daily calories. If you eat around 1,800 calories each day, this means eating less than 60 grams (g) of fat per day. Fat is an important part of a healthy diet. Eating a low-fat diet can make it hard to maintain a healthy body weight. Ask your dietitian how much fat, calories, and other nutrients you need each day. Eat small, frequent meals throughout the day instead of three large meals. Drink at least 8 10 cups (1.9 2.4 L) of fluid a day. Drink enough fluid to keep your urine pale yellow. If you drink alcohol: ?Limit how much you have to: ?0 1 drink a day for women who are not . ?0 2 drinks a day for men. ?Know how much alcohol is in a drink. In the [place] one drink equals one 12 oz bottle of beer (355 mL), one 5 oz glass of wine (148 mL), or one 1 oz glass of hard liquor (44 mL). Reading food labels Check nutrition facts on food labels for the amount of fat per serving. Choose foods with less than 3 grams of fat per serving. Shopping Choose nonfat and low-fat healthy foods. Look for the words nonfat, low-fat, or fat-free. Avoid buying processed or prepackaged foods. Cooking Cook using low-fat methods, such as baking, broiling, grilling, or boiling. Cook with small amounts of healthy fats, such as olive oil, grapeseed oil, canola oil, avocado oil, or sunflower oil. What foods are recommended? All fresh, frozen, or canned fruits and vegetables. Whole grains. Low-fat or nonfat (skim) milk and yogurt. Lean meat, skinless poultry, fish, eggs, and beans. Low-fat protein supplement powders or drinks. Spices and herbs. The items listed above may not be a complete list of foods and beverages you can eat and drink. Contact a dietitian for more information. What foods are not recommended? High-fat foods. These include baked goods, fast food, fatty cuts of meat, ice cream, vietnamese toast, sweet rolls, pizza, cheese bread, foods covered with butter, creamy sauces, or cheese. Fried foods. These include vietnamese fries, tempura, battered fish, breaded chicken, fried breads, and sweets. Foods that cause bloating and gas. The items listed above may not be a complete list of foods that you should avoid. Contact a dietitian for more information. Summary A low-fat diet can be helpful if you have a gallbladder condition, or before and after gallbladder surgery. Limit your fat intake to less than 30% of your total daily calories. This is about 60 g of fat if you eat 1,800 calories each day. Eat small, frequent meals throughout the day instead of three large meals. This information is not intended to replace advice given to you by your health care provider. Make sure you discuss any questions you have with your health care provider. Document Revised: 08/08/2022 Document Reviewed: 08/08/2022 [employer] Patient Education 2022 [employer]. 12/23/2023 12:22:34 Cholecystitis Cholecystitis Cholecystitis is inflammation of the gallbladder. Cholecystitis is often called a gallbladder attack. The gallbladder is a pear-shaped organ that lies beneath the liver on the right side of the body. The gallbladder stores a fluid that helps the body digest fats (bile). If bile builds up in your gallbladder, your gallbladder becomes inflamed and can develop a serious infection. This condition may occur suddenly. Cholecystitis is a serious condition and requires treatment. What are the causes? The most common cause of this condition is gallstones. Gallstones can block the tube (duct) that carries bile out of your gallbladder. This causes bile to build up. Other causes include: Damage to the gallbladder due to decreased blood flow. Infection in the bile duct. Scars, kinks, or adhesions in the bile duct. Tumors in the liver, pancreas, or gallbladder. What increases the risk? You are more likely to develop this condition if: You are female and between the ages of 55 62. You take control pills or use estrogen. You take certain medicines that increase your likelihood of developing gallstones. You are obese. You have a severe reaction to an infection (sepsis). The infection may be bacterial, fungal, parasitic, or viral. You have been hospitalized due to trauma, such as a burn or critical illness. You have not eaten or drank for a long period of time (prolonged fasting). What are the signs or symptoms? Symptoms of this condition include: Tenderness in the upper right part of the abdomen. A lump over the gallbladder. Bloating in the abdomen. Nausea. Vomiting. Fever. Chills. How is this diagnosed? This condition is diagnosed with a medical history and physical exam. You may also have other tests, including: Imaging tests, such as: ?An ultrasound of the abdomen. ?A CT scan of the abdomen. ?A gallbladder nuclear scan (HIDA cholescintigraphy). This allows your health care provider to see the bile moving from your liver to your gallbladder and to your small intestine. ?MRI. Blood tests, such as: ?A complete blood count. The white blood cell count may be higher than normal. ?C-reactive protein (CRP) test. The level of CRP will be higher if there is an infection. ?Liver function tests. Certain types of gallstones cause some results to be higher than normal. How is this treated? Treatment may include: Pain medicine and IV fluids. Not eating or drinking (fasting). This helps to take stress off of your gallbladder. Antibiotic medicine. This is usually given through an IV. Surgery to remove your gallbladder (cholecystectomy). Gallbladder drainage. In this procedure, a tube is placed into the gallbladder to drain fluid. This may be done for people with moderate to severe cholecystitis who cannot have surgery. Follow these instructions at home: Medicines Take eagk-xgg-jdkbtwy and prescription medicines only as told by your health care provider. If you were prescribed an antibiotic medicine, take it as told by your health care provider. Do not stop taking the antibiotic even if you start to feel better. General instructions Follow instructions from your health care provider about what to eat or drink. When you are allowed to eat, avoid eating or drinking anything that triggers your symptoms. Do not use any products that contain nicotine or tobacco. These products include cigarettes, chewing tobacco, and vaping devices, such as e-cigarettes. If you need help quitting, ask your health care provider. Keep all follow-up visits. This is important. Contact a health care provider if: Your pain is not controlled with medicine. You have a fever. Get help right away if: Your pain moves to another part of your abdomen or to your back. You continue to have symptoms or you develop new symptoms even with treatment. These symptoms may be an emergency. Get help right away. Call 911. Do not wait to see if the symptoms will go away. Do not drive yourself to the hospital. Summary Cholecystitis is inflammation of the gallbladder. The most common cause of this condition is gallstones. Gallstones can block the tube (duct) that carries bile out of your gallbladder. Common symptoms include tenderness in the abdomen, nausea, vomiting, fever, and chills. This condition is treated with fasting, pain medicine, surgery to remove the gallbladder, antibiotic medicines, and gallbladder drainage. Follow your health care provider's instructions for eating and drinking. Avoid eating anything that triggers your symptoms. This information is not intended to replace advice given to you by your health care provider. Make sure you discuss any questions you have with your health care provider. Document Revised: 02/25/2022 Document Reviewed: 02/25/2022 [employer] Patient Education 2022 [employer]. 12/23/2023 12:22:32 Cholelithiasis Cholelithiasis Cholelithiasis is a disease in which gallstones form in the gallbladder. The gallbladder is an organ that stores bile. Bile is a fluid that helps to digest fats. Gallstones begin as small crystals and can slowly grow into stones. They may cause no symptoms until they block the gallbladder duct, or cystic duct, when the gallbladder tightens (contracts) after food is eaten. This can cause pain and is known as a gallbladder attack, or biliary colic. There are two main types of gallstones: Cholesterol stones. These are the most common type of gallstone. These stones are made of hardened cholesterol and are usually yellow-green in color. Cholesterol is a fat-like substance that is made in the liver. Pigment stones. These are dark in color and are made of a red-yellow substance, called bilirubin,that forms when hemoglobin from red blood cells breaks down. What are the causes? This condition may be caused by an imbalance in the different parts that make bile. This can happen if the bile: Has too much bilirubin. This can happen in certain blood diseases, such as sickle cell anemia. Has too much cholesterol. Does not have enough bile salts. These salts help the body absorb and digest fats. In some cases, this condition can also be caused by the gallbladder not emptying completely or often enough. This is common during . What increases the risk? The following factors may make you more likely to develop this condition: Being female. Having multiple pregnancies. Health care providers sometimes advise removing diseased gallbladders before future pregnancies. Eating a diet that is heavy in fried foods, fat, and refined carbohydrates, such as white bread and white rice. Being obese. Being older than age 40. Using medicines that contain female hormones (estrogen) for a long time. Losing weight quickly. Having a family history of gallstones. Having certain medical problems, such as: ?Diabetes mellitus. ?Cystic fibrosis. ?Crohn's disease. ?Cirrhosis or other long-term (chronic) liver disease. ?Certain blood diseases, such as sickle cell anemia or leukemia. What are the signs or symptoms? In many cases, having gallstones causes no symptoms. When you have gallstones but do not have symptoms, you have silent gallstones. If a gallstone blocks your bile duct, it can cause a gallbladder attack. The main symptom of a gallbladder attack is sudden pain in the upper right part of the abdomen. The pain: Usually comes at night or after eating. Can last for one hour or more. Can spread to your right shoulder, back, or chest. Can feel like indigestion. This is discomfort, burning, or fullness in your upper abdomen. If the bile duct is blocked for more than a few hours, it can cause an infection or inflammation of your gallbladder (cholecystitis), liver, or pancreas. This can cause: Nausea or vomiting. Bloating. Pain in your abdomen that lasts for 5 hours or longer. Tenderness in your upper abdomen, often in the upper right section and under your rib cage. Fever or chills. Skin or the white parts of your eyes turning yellow (jaundice). This usually happens when a stone has blocked bile from passing through the common bile duct. Dark urine or light-colored stools. How is this diagnosed? This condition may be diagnosed based on: A physical exam. Your medical history. Ultrasound. CT scan. MRI. You may also have other tests, including: Blood tests to check for signs of an infection or inflammation. Cholescintigraphy, or HIDA scan. This is a scan of your gallbladder and bile ducts (biliary system) using non-harmful radioactive material and special cameras that can see the radioactive material. Endoscopic retrograde cholangiopancreatogram. This involves inserting a small tube with a camera on the end (endoscope) through your mouth to look at bile ducts and check for blockages. How is this treated? Treatment for this condition depends on the severity of the condition. Silent gallstones do not need treatment. Treatment may be needed if a blockage causes a gallbladder attack or other symptoms. Treatment may include: Home care, if symptoms are not severe. ?During a simple gallbladder attack, stop eating and drinking for 12 24 hours (except for water and clear liquids). This helps to cool down your gallbladder. After 1 or 2 days, you can start to eat a diet of simple or clear foods, such as broths and crackers. ?You may also need medicines for pain or nausea or both. ?If you have cholecystitis and an infection, you will need antibiotics. A hospital stay, if needed for pain control or for cholecystitis with severe infection. Cholecystectomy, or surgery to remove your gallbladder. This is the most common treatment if all other treatments have not worked. Medicines to break up gallstones. These are most effective at treating small gallstones. Medicines may be used for up to 6 12 months. Endoscopic retrograde cholangiopancreatogram. A small basket can be attached to the endoscope and used to capture and remove gallstones, mainly those that are in the common bile duct. Follow these instructions at home: Medicines Take khpm-pnv-gnvmkif and prescription medicines only as told by your health care provider. If you were prescribed an antibiotic medicine, take it as told by your health care provider. Do not stop taking the antibiotic even if you start to feel better. Ask your health care provider if the medicine prescribed to you requires you to avoid driving or using machinery. Eating and drinking Drink enough fluid to keep your urine pale yellow. This is important during a gallbladder attack. Water and clear liquids are preferred. Follow a healthy diet. This includes: ?Reducing fatty foods, such as fried food and foods high in cholesterol. ?Reducing refined carbohydrates, such as white bread and white rice. ?Eating more fiber. Aim for foods such as almonds, fruit, and beans. Alcohol use If you drink alcohol: ?Limit how much you use to: ?0 1 drink a day for non women. ?0 2 drinks a day for men. ?Be aware of how much alcohol is in your drink. In the [place] one drink equals one 12 oz bottle of beer (355 mL), one 5 oz glass of wine (148 mL), or one 1 oz glass of hard liquor (44 mL). General instructions Do not use any products that contain nicotine or tobacco, such as cigarettes, e-cigarettes, and chewing tobacco. If you need help quitting, ask your health care provider. Maintain a healthy weight. Keep all follow-up visits as told by your health care provider. These may include consultations with a surgeon or specialist. This is important. Where to find more information National [employer] of [employer] and Digestive and Kidney Diseases: www.niddk.nih.gov Contact a health care provider if: You think you have had a gallbladder attack. You have been diagnosed with silent gallstones and you develop pain in your abdomen or indigestion. You begin to have attacks more often. You have dark urine or light-colored stools. Get help right away if: You have pain from a gallbladder attack that lasts for more than 2 hours. You have pain in your abdomen that lasts for more than 5 hours or is getting worse. You have a fever or chills. You have nausea and vomiting that do not go away. You develop jaundice. Summary Cholelithiasis is a disease in which gallstones form in the gallbladder. This condition may be caused by an imbalance in the different parts that make bile. This can happen if your bile has too much bilirubin or cholesterol, or does not have enough bile salts. Treatment for gallstones depends on the severity of the condition. Silent gallstones do not need treatment. If gallstones cause a gallbladder attack or other symptoms, treatment usually involves not eating or drinking anything. Treatment may also include pain medicines and antibiotics, and it sometimes includes a hospital stay. Surgery to remove the gallbladder is common if all other treatments have not worked. This information is not intended to replace advice given to you by your health care provider. Make sure you discuss any questions you have with your health care provider. Document Revised: 07/16/2020 Document Reviewed: 07/16/2020 [employer] Patient Education 2022 [employer]. Follow Up Care 12/14/2023 11:01:47 With:Lisa Padilla [facility] Address: [place]dez, [facility] A [address] [address]- When:Within 1 Month(s) Comments:f/u abd pain, gall stone, cirrhosis, thrombocytopenia, fatigue [facility] 12-13-2023 Evaluation + Plan note Extrac shawn from: Title:Discharge Note Author:Desi Mena MD ate:12/13/23 Stable Discharge To, Anticipated II - Home independently Discharged to - Home independently Transported by, Anticipated - Family Prescriptions BP cuff device and appropriate size please, See Instructions lactulose 10 g/15 mL Oral Syrup, 20 gm= 30 mL, Oral, QID, 1 refills lidocaine Top 5% film Patch, 1 patch(es), Topical, Daily, Not taking Narcan 4 mg/0.1 mL nasal spray, 4 mg, Nasal, As Directed, Not taking oxyCODONE 5 mg Tab, 0.5 tab, Oral, q6hr, PRN, Not taking Potassium Chloride (Nuw-Wqvi-Rjj M20) 20 mEq oral tablet, extended release, 20 mEq= 1 tab(s), Oral, BID, 3 refills, Not taking Zofran ODT 4 mg Tab, 4 mg= 1 tab(s), Oral, TID, PRN Home Bactrim, Oral folic acid 1 mg Tab, 1 mg= 1 tab(s), Oral, Daily furosemide 20 mg Tab, 20 mg= 1 tab(s), Oral, Daily Misc DME Prescription, See Instructions, Not taking Misc DME Prescription, See Instructions, Not taking Misc DME Prescription, See Instructions mycophenolate mofetil 500 mg oral tablet, 500 mg= 1 tab(s), Oral, BID spironolactone 50 mg Tab, 50 mg= 1 tab(s), Oral, Daily Tab-A-Scott oral tablet, 1 tab(s), Oral, Daily With When Contact Information Lisa Lopez In 0 days [address], [address] [place] [id number] [facility] (1) Additional Instructions: Extracted from: Title:Admission H & P Author:Desi Mena MD Date:12/11/23 38 y/o M admited for contras t induced reaction and intractable pain. Assessment/Plan Intractable pain -likely 2/2 Definity contrast no signs of an allergic reaction, may have mechanical obstruction from definity, as such he maybe experiencing side effect and not an allergic reaction, no s/s of an allergic reaction at this time, will monitor him for it -follow I and O -gentle hydration -pain control -check urine out put and BMP -will be on bowel regimen for his cirrhosis Cirrhosis -Alcohol induced, stats that he has not had alcoholic drink in 2 years -Lactulose titrated to 2-3 small bowel movements a day -Med rec then his appropriate home medications Cholilithiasis -Out pt follow up w/ACS Tobacco user -Tobacco cessation counseling performed Megaloblastic anemia Thrombocytopenia -Likely 2/2 above, no s/s of bleeding monitor Chronic Medical Conditions -med rec Time: 55 mins DVT PPX: SCD Plan: As above Extracted from: Title:ED Note Author:Brent Sanches DO Date: Intractable back pain (M54.9 : Dorsalgia, unspecified) Medication reaction (T50.905A: Adverse effect of unspecified drugs, medicaments and biological substances, initial encounter) Orders: HYDROmorphone, 0.5 mg = 0.5 mL, Injection, IV Push, Once, Stop date 12/11/23 10:49:00 EDT, STAT, Start date 12/11/23 10:49:00 EDT, 12/11/23 10:49:00 EDT HYDROmorphone, 0.5 mg = 0.5 mL, Injection, IV Push, Once, Stop date 12/11/23 9:17:00 EDT, STAT, Start date 12/11/23 9:17:00 EDT, 12/11/23 9:17:00 EDT ketorolac, 30 mg = 1 mL, Injection, IV Push, Once, Stop date 12/11/23 9:17:00 EDT, STAT, Start date 12/11/23 9:17:00 EDT, 12/11/23 9:17:00 EDT ondansetron, 4 mg = 2 mL, Injection, IV Push, Once, Stop date 12/11/23 9:17:00 EDT, STAT, Start date 12/11/23 9:17:00 EDT, 12/11/23 9:17:00 EDT Sodium Chloride 0.9% intravenous solution, 1,000 mL, Soln-IV, IV, Once, Stop date 12/11/23 9:17:00 EDT, STAT, Start date 12/11/23 9:17:00 EDT, Infuse over 61, minute(s) Basic Metabolic Panel CBC w/ Auto Diff CT Abdomen/Pelvis w/o Contrast ED Cardiac Monitoring ED Physician consult Hospitalist for continued care eGFR Extra Blue Tube Saline Lock Insert UA with Cult Rflx Future Appointments Appointment Date:01/27/2024 09:40:00 AM Scheduled Provider:Lisa Padilla Location:[facility] Appointment Type:FM Open Appointment Date:05/12/2024 03:15:00 PM Scheduled Provider:Nathan MULTANI, Mario Xiong Location:[facility] Digestive Health Appointment Type:BADH Follow Up Future Scheduled Tests Laboratory* HgbA1c 07/24/23 * Fznga-7-Lpeufnrhoyl 09/01/23 * Ceruloplasmin 09/01/23 * Antimitochondrial Antibody, [...] Marker 09/01/23 * Ammonia Level 07/24/23 * Ammonia Level 10/28/23 * Bilirubin Direct 09/01/23 * CBC w/ Auto Diff 07/24/23 * CBC w/ Auto Diff 10/28/23 * Comprehensive Metabolic Panel 07/24/23 * Comprehensive Metabolic Panel 09/01/23 * Comprehensive Metabolic Panel 10/28/23 * Ferritin 07/24/23 * Ferritin 09/01/23 * Folate Level 07/24/23 * GGT 07/24/23 * Iron Level 07/24/23 * Iron Level 09/01/23 * Lipase Level 07/24/23 * Lipid Panel 07/24/23 * Magnesium Level 07/24/23 * PT 07/24/23 * PT 09/01/23 * PT 10/28/23 * Phosphorus Level 07/24/23 * Reticulocyte Count 07/24/23 * Uric Acid 07/24/23 * Vitamin B12 Level 07/24/23 [facility]04-07-2024 Hospital Discharge instructions Patient Education 12/13/2023 10:04:57 Drug Allergy, Dcat-li-Szls Drug Allergy A drug allergy is when your body reacts in a bad way to a medicine. The reaction may be mild or very bad. In some cases, it can be life-threatening. If you have an allergic reaction, get help right away. You should get help even if the reaction seems mild. What are the causes? This condition is caused by a reaction in your body's defense system. The system sees a medicine asbeing harmful when it is not. What are the signs or symptoms? Symptoms of a mild reaction A stuffy nose. Tingling in your mouth. An itchy, red rash. Symptoms of a very bad reaction Swelling of your eyes, lips, face, tongue, mouth or back of your throat. Itchy, red, swollen areas of skin. Feeling dizzy or light-headed. Feeling mixed up. Pain in your belly. Trouble with breathing, talking, or swallowing. A tight feeling in your chest. Fast heartbeat. Vomiting or watery poop (diarrhea). How is this treated? There is no cure for allergies. An allergic reaction can be treated with: Medicines to help your symptoms. Medicines that you breathe into your lungs (respiratory inhalers). A shot for a very bad allergic reaction (epinephrine). For a very bad reaction, you may need to stay in the hospital. Your doctor may teach you how to usean allergy kit and how to give yourself an allergy shot. You can give yourself an allergy shot withwhat is called an auto-injector pen. Follow these instructions at home: If you have a very bad allergy: Always keep an allergy pen or your kit with you. This could save your life. Use it as told by your doctor. Make sure that you, the people who live with you, and your employer know how to use your allergy pen or kit. If you used your allergy pen or kit: ?Get more medicine for it right away. This is important in case you have another reaction. ?Get help right away. Wear a medical alert bracelet or necklace that says you have an allergy, if your doctor tells you to do this. General instructions Avoid medicines that you are allergic to. Take mpjp-mok-ylnflvw and prescription medicines only as told by your doctor. If you were given allergy medicines, do not drive until your health care provider tells you it is safe. If you have hives or a rash: ?Use jjxi-oym-uexfffp medicines as told by your doctor. ?Put cold, wet cloths on your skin. ?Take baths or showers in cool water. Avoid hot water. It is up to you to get your test results. Ask how to get your results when they are ready. Tell all your doctors that you have a medicine allergy. Keep all follow-up visits. Contact a doctor if: You think that you are having a mild allergic reaction. You have symptoms that last more than 2 days after your reaction. You get new symptoms. Get help right away if: You had to use your allergy pen or kit. You must go to the emergency room, even if the medicine seems to be working. Your symptoms get worse. You have symptoms of a very bad allergic reaction. These symptoms may be an emergency. Use your allergy pen or kit as you have been told. Get medical help right away. Call your local emergency services (911 in the [place] Do not wait to see if the symptoms will go away. Do not drive yourself to the hospital. Summary A drug allergy is when your body reacts in a bad way to a medicine. Take medicines only as told by your doctor. Tell all your doctors that you have a medicine allergy. Always keep an allergy pen or kit with you if you have a very bad allergy. This information is not intended to replace advice given to you by your health care provider. Make sure you discuss any questions you have with your health care provider. Document Revised: 02/03/2022 Document Reviewed: 02/03/2022 [employer] Patient Education 2022 [employer]. 12/13/2023 10:04:49 Chronic Back Pain Chronic Back Pain When back pain lasts longer than 3 months, it is called chronic back pain. The cause of your back pain may not be known. Some common causes include: Wear and tear (degenerative disease) of the bones, ligaments, or disks in your back. Inflammation and stiffness in your back (arthritis). People who have chronic back pain often go through certain periods in which the pain is more intense (flare-ups). Many people can learn to manage the pain with home care. Follow these instructions at home: Pay attention to any changes in your symptoms. Take these actions to help with your pain: Managing pain and stiffness If directed, apply ice to the painful area. Your health care provider may recommend applying ice during the first 24 48 hours after a flare-up begins. To do this: ?Put ice in a plastic bag. ?Place a towel between your skin and the bag. ?Leave the ice on for 20 minutes, 2 3 times per day. If directed, apply heat to the affected [...] have a greater risk of getting burned. Try soaking in a warm tub. Activity Avoid bending and other activities that make the problem worse. Maintain a proper position when standing or sitting: ?When standing, keep your upper back and neck straight, with your shoulders pulled back. Avoid slouching. ?When sitting, keep your back straight and relax your shoulders. Do not round your shoulders or pull them backward. Do not sit or compliance investigator one place for long periods of time. Take brief periods of rest throughout the day. This will reduce your pain. Resting in a lying or standing position is usually better than sitting to rest. When you are resting for longer periods, mix in some mild activity or stretching between periods ofrest. This will help to prevent stiffness and pain. Get regular exercise. Ask your health care provider what activities are safe for you. Do not lift anything that is heavier than 10 lb (4.5 kg), or the limit that you are told, until your health care provider says that it is safe. Always use proper lifting technique, which includes: ?Bending your knees. ?Keeping the load close to your body. ?Avoiding twisting. Sleep on a firm mattress in a comfortable position. Try lying on your side with your knees slightlybent. If you lie on your back, put a pillow under your knees. Medicines Treatment may include medicines for pain and inflammation taken by mouth or applied to the skin, prescription pain medicine, or muscle relaxants. Take lelv-usp-bjytypl and prescription medicines onlyas told by your health care provider. Ask your health care provider if the medicine prescribed to you: ?Requires you to avoid driving or using machinery. ?Can cause constipation. You may need to take these actions to prevent or treat constipation: ?Drink enough fluid to keep your urine pale yellow. ?Take xskx-cyf-qjhubyt or prescription medicines. ?Eat foods that are high in fiber, such as beans, whole grains, and fresh fruits and vegetables. ?Limit foods that are high in fat and processed sugars, such as fried or sweet foods. General instructions Do not use any products that contain nicotine or tobacco, such as cigarettes, e- cigarettes, and chewing tobacco. If you need help quitting, ask your health care provider. Keep all follow-up visits as told by your health care provider. This is important. Contact a health care provider if: You have pain that is not relieved with rest or medicine. Your pain gets worse, or you have new pain. You have a high fever. You have rapid weight loss. You have trouble doing your normal activities. Get help right away if: You have weakness or numbness in one or both of your legs or feet. You have trouble controlling your bladder or your bowels. You have severe back pain and have any of the following: ?Nausea or vomiting. ?Pain in your abdomen. ?Shortness of breath or you faint. Summary Chronic back pain is back pain that lasts longer than 3 months. When a flare-up begins, apply ice to the painful area for the first 24 48 hours. Apply a moist heat pad or use a heating pad on the painful area as directed by your health care provider. When you are resting for longer periods, mix in some mild activity or stretching between periods ofrest. This will help to prevent stiffness and pain. This information is not intended to replace advice given to you by your health care provider. Make sure you discuss any questions you have with your health care provider. Document Revised: 10/03/2020 Document Reviewed: 10/03/2020 [employer] Patient Education 2022 [employer] 12/13/2023 10:04:40 Cirrhosis Cirrhosis Cirrhosis is long-term (chronic) liver [...] fat is deposited in the liver by causesother than alcohol. Hepatitis B infection. Autoimmune hepatitis. [...] toxins include certain organic solvents, such as tolueneand chloroform. What increases the risk? You are [...] may not develop until the damage to yourliver starts to get worse. Early symptoms may [...] provider before taking any new medicines, including qjso-cjh-bneqcgm medicines such as NSAIDs. Rest as needed. [...] provider. Document Revised: 06/06/2021 Document Reviewed: 06/06/2021 [employer] Patient Education 2022 [employer]. Follow Up Care 12/11/2023 09:05:25 With:Lisa Lopez Address: [address] [place] [address] [facility] (1) When: Unknown [facility]04-07-2024 [facility] Inc[facility] on above:Result Comment: Electronically Signed By: Desi Mena MD\.br\Date and Time Signed: 12/13/23 07:52 [id number] [facility] Comment on above:Result Comment: Electronically Signed By: Desi Mena MD\.br\Date and Time Signed: 12/11/23 13:34 [id number] Note [id number] Discharge instructions Patient Education 11/11/2023 16:42:11 Endoscopy, Care After Procedure [facility] ([facility]) Endoscopy Care After Procedure Please read the instructions outlined below and refer to this sheet in the next few weeks. These discharge instructions provide you with general information on caring for yourself after you leave the[facility]. Your doctor may also give you specific instructions. While your treatment has been planned according to the most current medical practices available, unavoidable complications occasionally occur. If you have any problems or questions after discharge, please call your doctor. ACTIVITY You may resume your regular activity but move at a slower pace for the next 24 hours. Take frequent rest periods for the next 24 hours. Walking will help expel (get rid of) the air and reduce the bloated feeling in your abdomen. No driving for 24 hours (because of the anesthesia (medicine) used during the test). You may shower. Do not sign any important legal documents or operate any machinery for 24 hours (because of the anesthesia used during the test). NUTRITION Drink plenty of fluids. You may resume your normal diet. Begin with a light meal and progress to your normal diet. Avoid alcoholic beverages for 24 hours or as instructed by your caregiver. MEDICATIONS You may resume your normal medications unless your caregiver tells you otherwise. WHAT YOU CAN EXPECT TODAY You may experience abdominal discomfort such as a feeling of fullness or gas pains. FOLLOW-UP Your doctor will discuss the results of your test with you. SEEK IMMEDIATE MEDICAL ATTENTION IF ANY OF THE FOLLOWING OCCUR: Excessive nausea (feeling sick to your stomach) and/or vomiting. Severe abdominal pain and distention (swelling). Trouble swallowing. Temperature over 100 F (37.8 C). Rectal bleeding or vomiting of blood. Document Released: 04/07/2005 Document Re-Released: 02/15/2007 [employer] Patient Information [employer]. 11/11/2023 16:42:11 Esophageal Varices Esophageal Varices Esophageal varices are enlarged veins in the part of the body that moves food from the mouth to thestomach (esophagus). They develop when extra blood is forced to flow through these veins because the blood's normal flow is blocked. Without treatment, esophageal varices eventually break and bleed (hemorrhage), which can be life-threatening. What are the causes? This condition may be caused by: Scarring of the liver due to alcoholism. This is the most common cause. Long-term liver disease. Severe heart failure. A blood clot in a vein that supplies the liver. A disease that causes inflammation in the organs and other body areas. What are the signs or symptoms? Esophageal varices usually do not cause symptoms unless they start to bleed. Symptoms of bleeding esophageal varices include: Vomiting material that is bright red or that is black and looks like coffee grounds. Coughing up blood. Stools (feces) that look black and tarry. Dizziness or light-headedness. Low blood pressure. Loss of consciousness. How is this diagnosed? This condition is diagnosed with a procedure called endoscopy. During endoscopy, your health care provider uses a flexible tube with a small camera on the end of it (endoscope) to look down your throat and examine your esophagus. You may also have other tests, including: Imaging tests, such as a CT scan or ultrasound. Blood tests. How is this treated? This condition may be treated with: Medicines. Medicines are usually used to treat varices that are not bleeding. Procedures. Procedures are done to treat varices that are bleeding. They stop bleeding, or reduce pressure and the risk of bleeding. Procedures include: ?Placing an elastic band around the varices to keep them from bleeding. ?Replacing blood that you have lost due to bleeding. This may include getting a transfusion of blood or parts of blood, such as platelets or clotting factors. ?You may be given antibiotic medicine to help prevent infection. ?Getting an injection into the varices that causes it to shrink and close (sclerotherapy). You may also be given medicines that tighten blood vessels or change blood flow. ?Placing a balloon in the esophagus and inflating it. The balloon applies pressure to the bleeding veins to help stop the bleeding. ?Placing a small tube within the veins in the liver. This decreases blood flow and pressure in the esophageal varices. If other treatments do not work, you may need a liver transplant. Follow these instructions at home: Medicines Take swhq-suo-fqrqhwu and prescription medicines only as told by your health care provider. If you were prescribed an antibiotic medicine, take it as told by your health care provider. Do notstop taking the antibiotic even if you start to feel better. Do not take any NSAIDs (such as aspirin or ibuprofen) before first getting approval from your health care provider. General instructions Do not drink alcohol. Return to your normal activities as told by your health care provider. Ask your health care provider what activities are safe for you. Avoid vigorous physical activity. Ask your health care provider what exercises are safe for you. Keep all follow-up visits. Contact a health care provider if: You have pain in the abdomen. You are unable to eat or drink. Get help right away if: You vomit blood or have blood in your stool. You have stools that look black or tarry. You have chest pain. You feel dizzy or have low blood pressure. You lose consciousness. These symptoms may represent a serious problem that is an emergency. Do not wait to see if the symptoms will go away. Get medical help right away. Call your local emergency services (911 in the [place] Do not drive yourself to the hospital. Summary Esophageal varices are enlarged veins in the esophagus, the part of your body that moves food from your mouth to your stomach. Without treatment, esophageal varices eventually break and bleed, which can be life-threatening. Esophageal varices usually do not cause symptoms unless they start to bleed. Keep all follow-up visits. This is important. This information is not intended to replace advice given to you by your health care provider. Make sure you discuss any questions you have with your health care provider. Document Revised: 12/11/2020 Document Reviewed: 12/11/2020 [employer] Patient Education 2022 [employer]. Follow Up Care 10/09/2023 11:37:06 With:Nathan MULTANI, JOE Alcal[place], [facility] Address: [address] [place] [address], [address] [phone] When: Unknown Comments:Office will call to schedule follow up appointment and/or review any pending biopsy resultsCall forany problems. [facility]02-21-2024 Hospital Discharge instructions Patient Education 10/28/2023 15:32:25 Heart Disease Prevention Heart Disease Prevention Heart disease is the leading cause of in the world. Coronary artery disease is the most common cause of heart disease. This condition results when cholesterol and other substances (plaque) build up inside the martin of the blood vessels that supply your heart muscle (arteries). This buildup inarteries is called atherosclerosis. You can take actions [...] much sodium is safe for you. Most peopleshould have less than 2,300 mg each day. [...] of hard liquor (44 mL). Medicines Take hfgu-hha-ohlfvgx and prescription medicines only as told by [...] should be no higher than 120, and thelower number (diastolic) no higher than 80. Treatment [...] Centers for Disease Control and Prevention: www.cdc.gov/heartdisease [place] [employer]: www.heart.org Summary Heart disease is [...] provider. Document Revised: 04/23/2022 Document Reviewed: 04/23/2022 [employer] Patient Education 2022 [employer] 10/28/2023 15:32:24 Form - Blood Pressure Record Sheet Blood Pressure Record Sheet To take your blood pressure, you will need a blood pressure machine. You may be prescribed one, or you can buy a blood pressure machine (blood pressure monitor) at your clinic, drug store, or online.When choosing one, look for these features: An automatic monitor that has an arm cuff. A cuff that wraps snugly, but not too tightly, around your upper arm. You should be able to fit only one finger between your arm and the cuff. A device that stores blood pressure reading results. Do not choose a monitor that measures your blood pressure from your wrist or finger. Follow your health care provider's instructions for how to take your blood pressure. To use this form: Get one reading in the morning (a.m.) before you take any medicines. Get one reading in the evening (p.m.) before supper. Take at least two readings with each blood pressure check. This makes sure the results are correct.Wait 1 2 minutes between measurements. Write down the results in the spaces on this form. Repeat this once a week, or as told by your health care provider. Make a follow-up appointment with your health care provider to discuss the results. Blood pressure log Date: a.m. (1st reading) (2nd reading) p.m. (1st reading) (2nd reading) Date: a.m. (1st reading) (2nd reading) p.m. (1st reading) (2nd reading) Date: a.m. (1st reading) (2nd reading) p.m. (1st reading) (2nd reading) Date: a.m. (1st reading) (2nd reading) p.m. (1st reading) (2nd reading) Date: a.m. (1st reading) (2nd reading) p.m. (1st reading) (2nd reading) This information is not intended to replace advice given to you by your health care provider. Make sure you discuss any questions you have with your health care provider. Document Revised: 05/08/2022 Document Reviewed: 05/08/2022 [employer] Patient Education 2022 [employer]. 10/28/2023 15:32:23 DASH Eating Plan DASH Eating Plan DASH stands for Dietary Approaches to Stop Hypertension. The DASH eating plan is a healthy eating plan that has been shown to: Reduce high blood pressure (hypertension). Reduce your risk for type 2 diabetes, heart disease, and stroke. Help with weight loss. What are tips for following this plan? Reading food labels Check food labels for the amount of salt (sodium) per serving. Choose foods with less than 5 percent of the Daily Value of sodium. Generally, foods with less than 300 milligrams (mg) of sodium per serving fit into this eating plan. To find whole grains, look for the word whole as the first word in the ingredient list. Shopping Buy products labeled as low-sodium or no salt added. Buy fresh foods. Avoid canned foods and pre-made or frozen meals. Cooking Avoid adding salt when cooking. Use salt-free seasonings or herbs instead of table salt or sea salt. Check with your health care provider or pharmacist before using salt substitutes. Do not perla foods. Cook foods using healthy methods such as baking, boiling, grilling, roasting, andbroiling instead. Cook with heart-healthy oils, such as olive, canola, avocado, soybean, or sunflower oil. Meal planning Eat a balanced diet that includes: ?4 or more servings of fruits and 4 or more servings of vegetables each day. Try to fill one-half of your plate with fruits and vegetables. ?6 8 servings of whole grains each day. ?Less than 6 oz (170 g) of lean meat, poultry, or fish each day. A 3-oz (85-g) serving of meat is about the same size as a deck of cards. One egg equals 1 oz (28 g). ?2 3 servings of low-fat dairy each day. One serving is 1 cup (237 mL). ?1 serving of nuts, seeds, or beans 5 times each week. ?2 3 servings of heart-healthy fats. Healthy fats called omega-3 fatty acids are found in foods such as walnuts, flaxseeds, fortified milks, and eggs. These fats are also found in cold-water fish, such as sardines, salmon, and mackerel. Limit how much you eat of: ?Canned or prepackaged foods. ?Food that is high in trans fat, such as some fried foods. ?Food that is high in saturated fat, such as fatty meat. ?Desserts and other sweets, sugary drinks, and other foods with added sugar. ?Full-fat dairy products. Do not salt foods before eating. Do not eat more than 4 egg yolks a week. Try to eat at least 2 vegetarian meals a week. Eat more home-cooked food and less restaurant, buffet, and fast food. Lifestyle When eating at a restaurant, ask that your food be prepared with less salt or no salt, if possible. If you drink alcohol: ?Limit how much you use to: ?0 1 drink a day for women who are not . ?0 2 drinks a day for men. ?Be aware of how much alcohol is in your drink. In the [place] one drink equals one 12 oz bottle of beer (355 mL), one 5 oz glass of wine (148 mL), or one 1 oz glass of hard liquor (44 mL). General information Avoid eating more than 2,300 mg of salt a day. If you have hypertension, you may need to reduce your sodium intake to 1,500 mg a day. Work with your health care provider to maintain a healthy body weight or to lose weight. Ask what an ideal weight is for you. Get at least 30 minutes of exercise that causes your heart to beat faster (aerobic exercise) most days of the week. Activities may include walking, swimming, or biking. Work with your health care provider or dietitian to adjust your eating plan to your individual calorie needs. What foods should I eat? Fruits All fresh, dried, or frozen fruit. Canned fruit in natural juice (without added sugar). Vegetables Fresh or frozen vegetables (raw, steamed, roasted, or grilled). Low-sodium or reduced-sodium tomatoand vegetable juice. Low-sodium or reduced-sodium tomato sauce and tomato paste. Low-sodium or reduced-sodium canned vegetables. Grains Whole-grain or whole-wheat bread. Whole-grain or whole-wheat pasta. Brown rice. Oatmeal. Quinoa. Bulgur. Whole-grain and low-sodium cereals. Briana bread. Low- fat, low-sodium crackers. Whole-wheat flour tortillas. Meats and other proteins Skinless chicken or turkey. Ground chicken or turkey. Pork with fat trimmed off. Fish and seafood. Egg whites. Dried beans, peas, or lentils. Unsalted nuts, nut butters, and seeds. Unsalted canned beans. Lean cuts of beef with fat trimmed off. Low-sodium, lean precooked or cured meat, such as sausages or meat loaves. Dairy Low-fat (1%) or fat-free (skim) milk. Reduced-fat, low-fat, or fat-free cheeses. Nonfat, low-sodiumricotta or cottage cheese. Low-fat or nonfat yogurt. Low-fat, low-sodium cheese. Fats and oils Soft margarine without trans fats. Vegetable oil. Reduced-fat, low-fat, or light mayonnaise and salad dressings (reduced-sodium). Canola, safflower, olive, avocado, soybean, and sunflower oils. Avocado. Seasonings and condiments Herbs. Spices. Seasoning mixes without salt. Other foods Unsalted popcorn and pretzels. Fat-free sweets. The items listed above may not be a complete list of foods and beverages you can eat. Contact a dietitian for more information. What foods should I avoid? Fruits Canned fruit in a light or heavy syrup. Fried fruit. Fruit in cream or butter sauce. Vegetables Creamed or fried vegetables. Vegetables in a cheese sauce. Regular canned vegetables (not low-sodium or reduced-sodium). Regular canned tomato sauce and paste (not low-sodium or reduced-sodium). Regular tomato and vegetable juice (not low-sodium or reduced-sodium). Pickles. Olives. Grains Baked goods made with fat, such as croissants, muffins, or some breads. Dry pasta or rice meal packs. Meats and other proteins Fatty cuts of meat. Ribs. Fried meat. Peñaloza. Bologna, salami, and other precooked or cured meats, such as sausages or meat loaves. Fat from the back of a pig (fatback). Bratwurst. Salted nuts and seeds. Canned beans with added salt. Canned or smoked fish. Whole eggs or egg yolks. Chicken or turkey with skin. Dairy Whole or 2% milk, cream, and lxjh-kws-aamc. Whole or full-fat cream cheese. Whole-fat or sweetened yogurt. Full-fat cheese. Nondairy creamers. Whipped toppings. Processed cheese and cheese spreads. Fats and oils Butter. Stick margarine. Lard. Shortening. Ghee. Peñaloza fat. Tropical oils, such as coconut, palm kernel, or palm oil. Seasonings and condiments Onion salt, garlic salt, seasoned salt, table salt, and sea salt. Worcestershire sauce. Tartar sauce. Barbecue sauce. Teriyaki sauce. Soy sauce, including reduced-sodium. Steak sauce. Canned and packaged gravies. Fish sauce. Oyster sauce. Cocktail sauce. Store-bought horseradish. Ketchup. Mustard. Meat flavorings and tenderizers. Bouillon cubes. Hot sauces. Pre-made or packaged marinades. Pre-made or packaged taco seasonings. Relishes. Regular salad dressings. Other foods Salted popcorn and pretzels. The items listed above may not be a complete list of foods and beverages you should avoid. Contact a dietitian for more information. Where to find more information National Heart, Lung, and Blood [employer]: www.nhlbi.nih.gov [place] [employer]: www.heart.org Academy of Nutrition and Dietetics: www.eatright.org National Kidney Foundation: www.kidney.org Summary The DASH eating plan is a healthy eating plan that has been shown to reduce high blood pressure (hypertension). It may also reduce your risk for type 2 diabetes, heart disease, and stroke. When on the DASH eating plan, aim to eat more fresh fruits and vegetables, whole grains, lean proteins, low-fat dairy, and heart-healthy fats. With the DASH eating plan, you should limit salt (sodium) intake to 2,300 mg a day. If you have hypertension, you may need to reduce your sodium intake to 1,500 mg a day. Work with your health care provider or dietitian to adjust your eating plan to your individual calorie needs. This information is not intended to replace advice given to you by your health care provider. Make sure you discuss any questions you have with your health care provider. Document Revised: 07/27/2020 Document Reviewed: 07/27/2020 [employer] Patient Education 2022 [employer]. 10/28/2023 15:32:21 Hypertension, Adult Hypertension, Adult High blood pressure (hypertension) is when the force of blood pumping through the arteries is too strong. The arteries are the blood vessels that carry blood from the heart throughout the body. Hypertension forces the heart to work harder to pump blood and may cause arteries to become narrow or stiff. Untreated or uncontrolled hypertension can lead to a heart attack, heart failure, a stroke, kidney disease, and other problems. A blood pressure reading consists of a higher number over a lower number. Ideally, your blood pressure should be below 120/80. The first ( top ) number is called the systolic pressure. It is a measure of the pressure in your arteries as your heart beats. The second ( bottom ) number is called the diastolic pressure. It is a measure of the pressure in your arteries as the heart relaxes. What are the causes? The exact cause of this condition is not known. There are some conditions that result in high bloodpressure. What increases the risk? Certain factors may make you more likely to develop high blood pressure. Some of these risk factorsare under your control, including: Smoking. Not getting enough exercise or physical activity. Being overweight. Having too much fat, sugar, calories, or salt (sodium) in your diet. Drinking too much alcohol. Other risk factors include: Having a personal history of heart disease, diabetes, high cholesterol, or kidney disease. Stress. Having a family history of high blood pressure and high cholesterol. Having obstructive sleep apnea. Age. The risk increases with age. What are the signs or symptoms? High blood pressure may not cause symptoms. Very high blood pressure (hypertensive crisis) may cause: Headache. Fast or irregular heartbeats (palpitations). Shortness of breath. Nosebleed. Nausea and vomiting. Vision changes. Severe chest pain, dizziness, and seizures. How is this diagnosed? This condition is diagnosed by measuring your blood pressure while you are seated, with your arm resting on a flat surface, your legs uncrossed, and your feet flat on the floor. The cuff of the bloodpressure monitor will be placed directly against the skin of your upper arm at the level of your heart. Blood pressure should be measured at least twice using the same arm. Certain conditions can cause a difference in blood pressure between your right and left arms. If you have a high blood pressure reading during one visit or you have normal blood pressure with other risk factors, you may be asked to: Return on a different day to have your blood pressure checked again. Monitor your blood pressure at home for 1 week or longer. If you are diagnosed with hypertension, you may have other blood or imaging tests to help your health care provider understand your overall risk for other conditions. How is this treated? This condition is treated by making healthy lifestyle changes, such as eating healthy foods, exercising more, and reducing your alcohol intake. You may be referred for counseling on a healthy diet and physical activity. Your health care provider may prescribe medicine if lifestyle changes are not enough to get your blood pressure under control and if: Your systolic blood pressure is above 130. Your diastolic blood pressure is above 80. Your personal target blood pressure may vary depending on your medical conditions, your age, and other factors. Follow these instructions at home: Eating and drinking Eat a diet that is high in fiber and potassium, and low in sodium, added sugar, and fat. An exampleof this eating plan is called the DASH diet. DASH stands for Dietary Approaches to Stop Hypertension. To eat this way: ?Eat plenty of fresh fruits and vegetables. Try to fill one half of your plate at each meal with fruits and vegetables. ?Eat whole grains, such as whole-wheat pasta, brown rice, or whole-grain bread. Fill about one fourth of your plate with whole grains. ?Eat or drink low-fat dairy products, such as skim milk or low-fat yogurt. ?Avoid fatty cuts of meat, processed or cured meats, and poultry with skin. Fill about one fourth of your plate with lean proteins, such as fish, chicken without skin, beans, eggs, or tofu. ?Avoid pre-made and processed foods. These tend to be higher in sodium, added sugar, and fat. Reduce your daily sodium intake. Many people with hypertension should eat less than 1,500 mg of sodium a day. Do not drink alcohol if: ?Your health [...] oz glass of hard liquor (44 mL). Lifestyle Work with your health care provider to maintain a healthy body weight or to lose weight. Ask what an ideal weight is for you. Get at least 30 minutes of exercise that causes your heart to beat faster (aerobic exercise) most days of the week. Activities may include walking, swimming, or biking. Include exercise to strengthen your muscles (resistance exercise), such as Pilates or lifting weights, as part of your weekly exercise routine. Try to do these types of exercises for 30 minutes at least 3 days a week. Do not use any products that contain nicotine or tobacco. These products include cigarettes, chewing tobacco, and vaping devices, such as e-cigarettes. If you need help quitting, ask your health careprovider. Monitor your blood pressure at home as told by your health care provider. Keep all follow-up visits. This is important. Medicines Take zxlm-yra-mvpfled and prescription medicines only as told by your health care provider. Follow directions carefully. Blood pressure medicines must be taken as prescribed. Do not skip doses of blood pressure medicine. Doing this puts you at risk for problems and can makethe medicine less effective. Ask your health care provider about side effects or reactions to medicines that you should watch for. Contact a health care provider if you: Think you are having a reaction to a medicine you are taking. Have headaches that keep coming back (recurring). Feel dizzy. Have swelling in your ankles. Have trouble with your vision. Get help right away if you: Develop a severe headache or confusion. Have unusual weakness or numbness. Feel faint. Have severe pain in your chest or abdomen. Vomit repeatedly. Have trouble breathing. These symptoms may be an emergency. Get help right away. Call 911. Do not wait to see if the symptoms will go away. Do not drive yourself to the hospital. Summary Hypertension is when the force of blood pumping through your arteries is too strong. If this condition is not controlled, it may put you at risk for serious complications. Your personal target blood pressure may vary depending on your medical conditions, your age, and other factors. For most people, a normal blood pressure is less than 120/80. Hypertension is treated with lifestyle changes, medicines, or a combination of both. Lifestyle changes include losing weight, eating a healthy, low-sodium diet, exercising more, and limiting alcohol. This information is not intended to replace advice given to you by your health care provider. Make sure you discuss any questions you have with your health care provider. Document Revised: 07/01/2022 Document Reviewed: 07/01/2022 [employer] Patient Education 2022 [employer]. 10/28/2023 15:32:19 Alcoholic Liver Disease Alcoholic Liver Disease Alcoholic [...] nutrients, such as folate or thiamine (have nutrientdeficiencies). What are the signs or symptoms? Most people do not have symptoms in the early stages of this disease. If early symptoms do develop,they may include: Loss of appetite. Nausea and [...] can provide emotional support and guidance. Take zuqe-ocj-gmlpiha and prescription medicines only as told by [...] provider. Document Revised: 06/06/2021 Document Reviewed: 06/06/2021 [employer] Patient Education 2022 [employer]. 10/28/2023 15:32:16 Thrombocytopenia Thrombocytopenia Thrombocytopenia is a condition in [...] Follow these instructions at home: Medicines Take okxe-frx-ahbhhor and prescription medicines only as told by [...] provider. Document Revised: 02/06/2022 Document Reviewed: 02/06/2022 [employer] Patient Education 2022 [employer] 10/28/2023 15:32:14 Varicose Veins Varicose Veins Varicose veins are veins that have become enlarged, bulged, and twisted. They most often appear in the legs. What are the causes? This condition is caused by damage to the valves in the vein. These valves help blood return to your heart. When they are damaged and they stop working properly, blood may flow backward and back up in the veins near the skin, causing the veins to get larger and appear twisted. The condition can result from any issue that causes blood to back up, like , prolonged standing, or obesity. What increases the risk? The following factors may make you more likely to develop this condition: Being on your feet a lot. Being . Being overweight. Smoking. Having had a previous deep vein thrombosis or having a thrombotic disorder. Aging. The risk increases with age. Having a condition called Klippel Trenaunay syndrome. What are the signs or symptoms? Symptoms of this condition include: Bulging, twisted, and bluish veins. A feeling of heaviness in your legs. This may be worse at the end of the day. Leg pain. This may be worse at the end of the day. Swelling in the leg. Changes in skin color over the veins. Swelling or pain in the legs can limit your activities. Your symptoms may get worse when you sit orstand for long periods of time. How is this diagnosed? This condition may be diagnosed based on: Your symptoms, family history, activity levels, and lifestyle. A physical exam. You may also have tests, including an ultrasound or X-ray. How is this treated? Treatment for this condition may involve: Avoiding sitting or standing in one position for long periods of time. Wearing compression stockings. These stockings help to prevent blood clots and reduce swelling in the legs. Raising (elevating) the legs when resting. Losing weight. Exercising regularly. If you have persistent symptoms or want to improve the way your varicose veins look, you may chooseto have a procedure to close the varicose veins off or to remove them. Nonsurgical treatments to close off the veins include: Sclerotherapy. In this treatment, a solution is injected into a vein to close it off. Laser treatment. The vein is heated with a laser to close it off. Radiofrequency vein ablation. An electrical current produced by radio waves is used to close off the vein. Surgical treatments to remove the veins include: Phlebectomy. In this procedure, the veins are removed through small incisions made over the veins. Vein ligation and stripping. In this procedure, incisions are made over the veins. The veins are then removed after being tied (ligated) with stitches (sutures). Follow these instructions at home: Medicines Take fnak-kzf-gywkgtz and prescription medicines only as told by your health care provider. If you were prescribed an antibiotic medicine, use it as told by your health care provider. Do not stop using the antibiotic even if you start to feel better. Activity Walk as much as possible. Walking increases blood flow. This helps blood return to the heart and takes pressure off your veins. Do not stand or sit in one position for a long period of time. Do not sit with your legs crossed. Avoid sitting for a long time without moving. Get up to take short walks every 1 2 hours. This is important to improve blood flow and breathing. Ask for help if you feel weak or unsteady. Return to your normal activities as told by your health care provider. Ask your health care provider what activities are safe for you. Do exercises as told by your health care provider. General instructions Follow any diet instructions given to you by your health care provider. Elevate your legs at night to above the level of your heart. If you get a cut in the skin over the varicose vein and the vein bleeds: ?Lie down with your leg raised. ?Apply firm pressure to the cut with a clean cloth until the bleeding stops. ?Place a bandage (dressing) on the cut. Drink enough fluid to keep your urine pale yellow. Do not use any products that contain nicotine or tobacco. These products include cigarettes, chewing tobacco, and vaping devices, such as e-cigarettes. If you need help quitting, ask your health careprovider. Wear compression stockings as told by your health care provider. Do not wear other kinds of tight clothing around your legs, pelvis, or waist. Keep all follow-up visits. This is important. Contact a health care provider if: The skin around your varicose veins starts to break down. You have more pain, redness, tenderness, or hard swelling over a vein. You are uncomfortable because of pain. You get a cut in the skin over a varicose vein and it will not stop bleeding. Get help right away if: You have chest pain. You have trouble breathing. You have severe leg pain. Summary Varicose veins are veins that have become enlarged, bulged, and twisted. They most often appear in the legs. This condition is caused by damage to the valves in the vein. These valves help blood return to your heart. Treatment for this condition includes frequent movements, wearing compression stockings, losing weight, and exercising regularly. In some cases, procedures are done to close off or remove the veins. Nonsurgical treatments to close off the veins include sclerotherapy, laser therapy, and radiofrequency vein ablation. This information is not intended to replace advice given to you by your health care provider. Make sure you discuss any questions you have with your health care provider. Document Revised: 02/05/2022 Document Reviewed: 02/05/2022 [employer] Patient Education 2022 [employer]. 10/28/2023 15:32:09 Nausea, Adult Nausea, Adult Nausea is the feeling of having an upset stomach or that you are about to vomit. Nausea on its own is not usually a serious concern, but it may be an early sign of a more serious medical problem. As nausea gets worse, it can lead to vomiting. If vomiting develops, or if you are not able to drink enough fluids, you are at risk of becoming dehydrated. Dehydration can make you tired and thirsty, cause you to have a dry mouth, and decrease how often you urinate. Older adults and people with other diseases or a weak disease-fighting system (immune system) are at higher risk for dehydration. The main goals of treating your nausea are: To relieve your nausea. To limit repeated nausea episodes. To prevent vomiting and dehydration. Follow these instructions at home: Watch your symptoms for any changes. Tell your health care provider about them. Eating and drinking Take an oral rehydration solution (ORS). This is a drink that is sold at pharmacies and retail stores. Drink clear fluids slowly and in small amounts as you are able. Clear fluids include water, ice chips, low-calorie sports drinks, and fruit juice that has water added (diluted fruit juice). Eat bland, gfpv-wz-rnuhcu foods in small amounts as you are able. These foods include bananas, applesauce, rice, lean meats, toast, and crackers. Avoid drinking fluids that contain a lot of sugar or caffeine, such as energy drinks, sports drinks, and soda. Avoid alcohol. Avoid spicy or fatty foods. General instructions Take xkgd-wzz-fljjeuo and prescription medicines only as told by your health care provider. Rest at home while you recover. Drink enough fluid to keep your urine pale yellow. Breathe slowly and deeply when you feel nauseous. Avoid smelling things that have strong odors. Wash your hands often using soap and water for at least 20 seconds. If soap and water are not available, use hand sourcing coordinator. Make sure that everyone in your household washes their hands well and often. Keep all follow-up visits. This is important. Contact a health care provider if: Your nausea gets worse. Your nausea does not go away after two days. You vomit multiple times. You cannot drink fluids without vomiting. You have any of the following: ?New symptoms. ?A fever. ?A headache. ?Muscle cramps. ?A rash. ?Pain while urinating. You feel light-headed or dizzy. Get help right away if: You have pain in your chest, neck, arm, or jaw. You feel extremely weak or you faint. You have vomit that is bright red or looks like coffee grounds. You have bloody or black stools (feces) or stools that look like tar. You have a severe headache, a stiff neck, or both. You have severe pain, cramping, or bloating in your abdomen. You have difficulty breathing or are breathing very quickly. Your heart is beating very quickly. Your skin feels cold and clammy. You feel confused. You have signs of dehydration, such as: ?Dark urine, very little urine, or no urine. ?Cracked lips. ?Dry mouth. ?Sunken eyes. ?Sleepiness. ?Weakness. These symptoms may be an emergency. Get help right away. Call 911. Do not wait to see if the symptoms will go away. Do not drive yourself to the hospital. Summary Nausea is the feeling that you have an upset stomach or that you are about to vomit. Nausea on its own is not usually a serious concern, but it may be an early sign of a more serious medical problem. If vomiting develops, or if you are not able to drink enough fluids, you are at risk of becoming dehydrated. Follow recommendations for eating and drinking and take ppyr-qeu-tcppzol and prescription medicinesonly as told by your health care provider. Contact a health care provider right away if your symptoms worsen or you have new symptoms. Keep all follow-up visits. This is important. This information is not intended to replace advice given to you by your health care provider. Make sure you discuss any questions you have with your health care provider. Document Revised: 02/28/2022 Document Reviewed: 02/28/2022 [employer] Patient Education 2022 [employer]. [facility] 01-25-2024 Note [id number] Follow Up Care 09/21/2023 12:59:46 With:Lisa Padilla FAM, [facility] Address: [facility] [address]mel Fernández, [facility] [address] [address]- When: Unknown [facility] 12-20-2023 Hospital Discharge instructions Patient Education 08/26/2023 11:03:02 [...] products, such as yogurt. General instructions Take qjnd-mqx-qazdcuj and prescription medicines only as told by [...] provider. Document Revised: 05/08/2022 Document Reviewed: 05/08/2022 [employer] Patient Education 2022 [employer]. 08/26/2023 11:03:00 Stasis Dermatitis Stasis Dermatitis Stasis [...] care provider who specializes in skin diseases (modeling teacher). How is this treated? This condition may [...] detergents, or perfumes. Medicines Take or use gcxh-swz-xutttpd and prescription medicines only as told by your health care provider. If you were prescribed an antibiotic medicine, take or use it as told by your health care provider.Do not stop taking or using the antibiotic even if your condition improves. Activity Walk as told by your health care provider. Walking increases blood flow. Do calf and ankle exercises throughout the day as told by your health care provider. This will helpincrease blood flow. Raise (elevate) your legs above [...] contain nicotine or tobacco, such as cigarettes, e- cigarettes, and chewing tobacco. If you need help quitting, ask your health care provider. General instructions If you were asked to use one of the following to help with your condition, follow instructions fromyour health care provider on how to: ?Remove [...] provider. Document Revised: 11/04/2021 Document Reviewed: 11/04/2021 [employer] Patient Education 2022 [employer]. 08/26/2023 11:02:52 Alcoholic Liver Disease Alcoholic Liver [...] nutrients, such as folate or thiamine (have nutrientdeficiencies). What are the signs or symptoms? Most people do not have symptoms in the early stages of this disease. If early symptoms do develop,they may include: Loss of appetite. Nausea and [...] can provide emotional support and guidance. Take xvbm-hxp-bslhftj and prescription medicines only as told by [...] provider. Document Revised: 06/06/2021 Document Reviewed: 06/06/2021 [employer] Patient Education 2022 [employer]. 08/26/2023 10:41:25 Incision and Drainage Incision and [...] including vitamins, herbs, eye drops, creams, and vqtj-spw-pumlnvm medicines. Any problems you or family members [...] provider tells you to take them. Taking rqzw-api-tpcppks medicines, vitamins, herbs, and supplements. Tests You [...] care for you for at least 24 hoursafter you leave the hospital or clinic. This [...] tube (drain) may be used to empty morefluid from the sac. Your health care provider [...] provider. Document Revised: 11/27/2022 Document Reviewed: 06/05/2022 [employer] Patient Education 2022 [employer] 08/26/2023 10:41:21 Stasis Dermatitis Stasis Dermatitis [...] care provider who specializes in skin diseases (modeling teacher). How is this treated? This condition may [...] detergents, or perfumes. Medicines Take or use nrjm-rob-hvjkcin and prescription medicines only as told by your health care provider. If you were prescribed an antibiotic medicine, take or use it as told by your health care provider.Do not stop taking or using the antibiotic even if your condition improves. Activity Walk as told by your health care provider. Walking increases blood flow. Do calf and ankle exercises throughout the day as told by your health care provider. This will helpincrease blood flow. Raise (elevate) your legs above [...] contain nicotine or tobacco, such as cigarettes, e- cigarettes, and chewing tobacco. If you need help quitting, ask your health care provider. General instructions If you were asked to use one of the following to help with your condition, follow instructions fromyour health care provider on how to: ?Remove [...] provider. Document Revised: 11/04/2021 Document Reviewed: 11/04/2021 [employer] Patient Education 2022 [employer]. 08/26/2023 10:41:14 Hypokalemia Hypokalemia Hypokalemia means that [...] products, such as yogurt. General instructions Take asof-aka-roouigv and prescription medicines only as told by [...] provider. Document Revised: 05/08/2022 Document Reviewed: 05/08/2022 [employer] Patient Education 2022 [employer]. Follow Up Care 07/24/2023 09:02:18 With:Lisa Padilla FAM, [facility] Address: [address], [address] [place] [id number]- Business (1) When:Within 2 Month(s) Comments:3 mo f/u for ulcers, liver disease, labs [facility] 12-18-2023 Note [id number] [facility] 07-24-2023 Hospital Discharge instructions Patient Education [...] fat is deposited in the liver by causesother than alcohol. Hepatitis B infection. Autoimmune hepatitis. [...] toxins include certain organic solvents, such as tolueneand chloroform. What increases the risk? You are [...] may not develop until the damage to yourliver starts to get worse. Early symptoms may [...] provider before taking any new medicines, including oofz-lhb-pheydnb medicines such as NSAIDs. Rest as needed. [...] provider. Document Revised: 06/06/2021 Document Reviewed: 06/06/2021 [employer] Patient Education 2022 [employer]. 07/24/2023 09:14:01 Heart Disease Prevention Heart Disease Prevention Heart disease is the leading cause of in the world. Coronary artery disease is the most common cause of heart disease. This condition results when cholesterol and other substances (plaque) build up inside the martin of the blood vessels that supply your heart muscle (arteries). This buildup inarteries is called atherosclerosis. You can take actions [...] much sodium is safe for you. Most peopleshould have less than 2,300 mg each day. [...] of hard liquor (44 mL). Medicines Take mldb-mpj-klgoygr and prescription medicines only as told by [...] should be no higher than 120, and thelower number (diastolic) no higher than 80. Treatment [...] Centers for Disease Control and Prevention: www.cdc.gov/heartdisease [place] [employer]: www.heart.org Summary Heart disease is [...] provider. Document Revised: 04/23/2022 Document Reviewed: 04/23/2022 [employer] Patient Education 2022 [employer]. 07/24/2023 09:13:57 Anemia Anemia Anemia is a condition in which there is not enough red blood cells or hemoglobin in the blood. Hemoglobin is a substance in red blood cells that carries oxygen. When you do not have enough red blood cells or hemoglobin (are anemic), your body cannot get enoughoxygen and your organs may not work properly. [...] spleen. Follow these instructions at home: Take rgfn-uto-pyzdqrb and prescription medicines only as told by [...] provider. Document Revised: 07/08/2022 Document Reviewed: 07/31/2020 [employer] Patient Education 2022 [employer]. 07/24/2023 09:13:53 Hypokalemia Hypokalemia Hypokalemia means that [...] seeds and pumpkin seeds. ?Peas, lentils, and egrardo beans. ?Whole grain and bran cereals and breads. ?Fresh fruits and vegetables, such as apricots, avocado, bananas, cantaloupe, kiwi, oranges, tomatoes, asparagus, and potatoes. ?Juices, such as orange, tomato, and prune. ?Lean meats, including fish. ?Milk and milk products, such as yogurt. General instructions Take touc-nrz-yyrrucd and prescription medicines only as told by [...] provider. Document Revised: 05/08/2022 Document Reviewed: 05/08/2022 [employer] Patient Education 2022 [employer]. 07/24/2023 09:13:45 Thrombocytopenia Thrombocytopenia Thrombocytopenia is a [...] Follow these instructions at home: Medicines Take gfzg-tgf-nvefltd and prescription medicines only as told by [...] provider. Document Revised: 02/06/2022 Document Reviewed: 02/06/2022 [employer] Patient Education 2022 [employer]. [facility] 10-13-2023 Hospital Discharge instructions Patient Education 06/19/2023 13:28:07 Insect Bite, Adult, Levj-hm-Gqka Insect Bite, Adult An insect bite can [...] of an anaphylactic reaction may include: Feeling sanding machine operator or tender the face (flushed). Your face may turn [...] a day. General instructions Apply or take ycqj-ovo-fqvkmqh and prescription medicines only as told by your doctor. If you were prescribed an antibiotic medicine, take or apply it as told by your doctor. Do not stopusing the antibiotic even if your condition improves. Keep all follow-up visits as told by your doctor. This is important. How is this prevented? To help you have a lower risk of insect bites: When you are outside, wear clothing that covers your arms and legs. Use insect repellent. The best insect repellents contain one of these: ?DEET. ?Picaridin. ?Oil of lemon eucalyptus (OLE). ?[id number]. Consider spraying your clothing with a pesticide called permethrin. Permethrin helps prevent insectbites. It works for several weeks and for up to 5 6 clothing washes. Do not apply permethrin directly to the skin. If your home windows do not have screens, think about putting some in. If you will be sleeping in an area where there are mosquitoes, consider covering your sleeping areawith a mosquito net. Contact a doctor if: [...] an anaphylactic reaction. Signs may include: ?Feeling sanding machine operator or tender the face. ?Itchy, red, swollen areas of [...] provider. Document Revised: 05/26/2022 Document Reviewed: 05/26/2022 [employer] Patient Education 2022 [employer]. Follow Up Care 06/19/2023 12:16:43 With:Colby Link Address: [address], [address] [place] [address]- Business (1) When:06/22/2023 12:39:51 Comments:Follow-up with your primary care provider in 3 to 5 days. If symptoms worsen, do not improve, or new symptoms arise please report back to emergency department for further evaluation. [facility]08-18-2023 Evaluation note* Encounter Date Diagnosis Assessment Notes Treatment Notes Treatment Clinical Notes Apr, Non-healing wound of right lower extremity (ICD-10 - S81.801A) Apr, Other Right leg swell ing and delayed healing of the right leg [...] sooner should he deteriorate in any way [employer] Other 08-15-2023 History of Present illness Narrative* [...] well. Monie Hernandez RN documented in this [id number] History of Present illness Narrative* Gustabo Ritchie [...] 100 %. Gustabo Pittman documented in this [id number] Hospital Discharge instructions Patient Education 03/22/2023 21:57:13 [...] Follow these instructions at home: Medicines Take bqjp-viv-rwkhdcs and prescription medicines only as told by [...] such as antibiotic medicines or antihistamines. Take xhlt-tnd-evzvlgs and prescription medicines only as told by [...] provider. Document Revised: 06/05/2022 Document Reviewed: 06/05/2022 [employer] Patient Education 2022 [employer] Follow Up Care 03/22/2023 19:36:11 With:THEO BURKS Address:Unknown When:Within 3 Day(s) [facility]07-16-2023 Evaluation + Plan noteExtracted from: Title:ED Note Author:Martin Reese DO Date :03/22/23 Cellulitis (L03.90: Cellulit is, unspecified) Orders: ondansetron, 4 mg = 1 tab(s), Oral, q8hr, PRN Nausea/Vomiting, # 20 tab(s), Refills(s) 0, Pharmacy: [facility] #[id number], 170, cm, 03/22/23 20:14:00 EDT, Height/Length Dosing, [...] for 14 day(s), 28 tab(s), Refill(s) 0, [facility] #[id number], 170, cm, 03/22/23 20:14:00 EDT, Height/Length Dosing, [...] Charcoal 03/22/23 * Blood Culture Charcoal 03/22/23 [facility]06-30-2023 Telephone encounter Note* Telephone Encounter - Deborah Gutierrez CPhT - 03/06/2023 8:55 AM EDT A prior authorization has been started for Lidocaine 5% patch PA status can be found under the prescription order in the Medication Tab. History or status of the PA can also be found in Chart Review under Referral tab. [id number] Miscellaneous Notes* Telephone Encounter - Deborah Gutierrez CPhT - 03/06/2023 8:55 AM EDT A prior authorization has been started for Lidocaine 5% patch PA status can be found under the prescription order in the Medication Tab. History or status of the PA can also be found in Chart Review under Referral tab. documented in this [id number] Telephone encounter Note* Telephone Encounter - Nighat Mahmood APRN-CNP - 02/27/2023 5:05 PM EDT Pt had video visit scheduled. Link sent to him, but he never checked in. [employer] Work Phone: [phone] Miscellaneous Notes* Telephone Encounter - Nighat Mahmood [...] Recommendation: n/a Thank you documented in this [id number] Telephone encounter Note* Telephone Encounter - Jordana Stanton RN - 02/27/2023 2:55 PM EDT Called the patient Reminded him of his video visit this ThursdayMarch 03 with Lindsey Mahmood Pt concerned about his leg, he will send a picture to My Chart To his provider Concerned about his infection Notified Lindsey Mahmood [employer] Work Phone: [phone]) 762-298906-23-2023 Telephone encounter Note* Telephone Encounter - Tobi Bowen - 02/27/2023 2:36 PM EDT What is the need: call back Situation: Pt states that the doctors office called him stating that they were running behind but he never got a phone call. Please advise Background: Please contact and advise Assessment: Pt contact info is Phone numbers Recommendation: n/a Thank you [id number] Evaluation + Plan noteExtracted from: Title:ED Note Author:Xander Anne PA-C te:02/18/23 Cellulitis of right leg (L03 .115: Cellulitis of right lower limb) Right leg pain (M79.604: Pain in right leg) Orders: clindamycin, 300 mg = 1 cap(s), Oral, q6hr, X 7 day(s), # 28 cap(s), Refills(s) 0, [facility]: [facility] #[id number], 170, cm, 02/18/23 7:51:00 EDT, Height/Length Dosing, [...] # 15 cap(s), Refills(s) 0, [facility]: [id number], 170, cm, 02/18/23 7:51:00 EDT, Height/Length Dosing, 77, kg, 02/18/23 7:51:00 EDT, Weight Dosing US LE Venous Duplex Right [facility]06-14-2023 Hospital Discharge instructions Patient Education 02/18/2023 09:31:38 RICE Therapy for Routine Care of Injuries, Iuxg-cf-Bxre RICE Therapy for Routine Care of Injuries [...] provider. Document Revised: 06/13/2021 Document Reviewed: 06/13/2021 [employer] Patient Education 2022 [employer]. 02/18/2023 09:31:38 Musculoskeletal Pain Musculoskeletal Pain Musculoskeletal [...] by mouth or applied to theskin. Take abfw-ive-kofxdrb and prescription medicines only as told by [...] provider. Document Revised: 12/27/2020 Document Reviewed: 12/05/2020 [employer] Patient Education 2022 [employer]. 02/18/2023 09:31:38 Pain Without a Known Cause [...] Follow these instructions at home: Medicines Take pdch-abr-ltyccpn and prescription medicines only as told by your health care provider. Ask your health care provider if the medicine prescribed to you: ?Requires you to avoid driving or using machinery. ?Can cause constipation. You may need to take these actions to prevent or treat constipation: ? Drink enough fluid to keep your urine pale yellow. ?Take zwma-nhr-zbgwemr or prescription medicines. ?Eat foods that are [...] the National Suicide Prevention Lifeline at or 690. This is open 24 hours a day. Text the Crisis Text Line at 492760. Summary Pain can occur in any part [...] provider. Document Revised: 04/23/2022 Document Reviewed: 04/23/2022 [employer] Patient Education 2022 [employer]. 02/18/2023 09:31:38 Cellulitis, Adult, Ocsh-mk-Wpww Cellulitis, Adult Cellulitis is a skin infection. [...] Follow these instructions at home: Medicines Take kwhz-fyz-kntxmbu and prescription medicines only as told by [...] provider. Document Revised: 06/05/2022 Document Reviewed: 06/05/2022 [employer] Patient Education 2022 [employer]. Follow Up Care 02/18/2023 07:42:07 With:THEO BURKS Address:Unknown When:02/21/2023 09:01:56 Comments:Follow-up with your primary care provider in 3 to 5 days. If symptoms worsen, do not improve, or new symptoms arise please report back to emergency department for further evaluation. [facility]05-16-2023 Surgery Postoperative evaluation and management note* Post-Procedure Note - Brayan Babin MD - 01/20/2023 10:23 AM EDT POST-PROCEDURE NOTE Procedure: Transjugular liver biopsy with pressure measurements Pre-operative Diagnosis: Cirrhosis, diagnostic evaluation Post-operative Diagnosis: Portal hypertension, cirrhosis Attending: Erica Rock MD Overhead Crane Operator: Leon Hernadez MD (attending) Brayan Babin MD [...] Given Dose: 40 mL; Route: Other; Scheduled Time:9:23 AM Alin Koch 01/20/2023 9:23 AM HYDROmorphone [...] portion of the procedure. Brayan Babin MD Radiology [employer] Work Phone: [phone]) 802-917505-16-2023 Miscellaneous Notes* Post-Procedure Note - Brayan Babin MD - 01/20/2023 10:23 AM EDT POST-PROCEDURE NOTE Procedure: Transjugular liver biopsy with pressure measurements Pre-operative Diagnosis: Cirrhosis, diagnostic evaluation Post-operative Diagnosis: Portal hypertension, cirrhosis Attending: Erica Rock MD Overhead Crane Operator: Leon Hernadez MD (attending) Brayan Babin MD [...] Medication Given Dose: 0.5 mg; Route: Intravenous Rich Flores RN 01/20/2023 9:09 AM iohexol (OMNIPAQUE) 350 MG/ML injection Medication Given Dose: 40 mL; Route: Other; Scheduled Time:9:23 AM Alin Koch 01/20/2023 9:23 AM HYDROmorphone [...] portion of the procedure. Brayan Babin MD Radiology * Pre-Procedure Note - Erica Rock MD - 01/20/2023 7:49 AM EDT Pre-Procedure Note HISTORY: Procedure: Transjugular liver biopsy and pressures Indication: 37 yo male with PMH of cirrhosis likely 2/2 to alcohol use and hemolytic anemia who presents to IR for transjugular liver biopsy with portal pressures. 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 28Capsule 1 Allergies: Amoxacillin [amoxicillin] PHYSICAL EXAM: Blood pressure 148/77, pulse 106, temperature 98.7 F (37.1 C), temperature source Oral, resp. rate 18, SpO2 [...] This Procedure: Full Code Dorota Aj MD Radiology documented in this [id number] Surgery Preoperative evaluation and management note* Pre-Procedure Note - Erica Rock MD - 01/20/2023 7:49 AM EDT Pre-Procedure Note HISTORY: Procedure: Transjugular liver biopsy and pressures Indication: 37 yo male with PMH of cirrhosis likely 2/2 to alcohol use and hemolytic anemia who presents to IR for transjugular liver biopsy with portal pressures. 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 28Capsule 1 Allergies: Amoxacillin [amoxicillin] PHYSICAL EXAM: Blood pressure 148/77, pulse 106, temperature 98.7 F (37.1 C), temperature source Oral, resp. rate 18, SpO2 [...] This Procedure: Full Code Dorota Aj MD Radiology [employer] Work Phone: [phone]) 320-931405-08-2023 History of Present illness Narrative* Meka Lucas RN - 01/12/2023 11:11 AM EDT Labs drawn peripherally from right forearm. documented in this [id number] History of Present illness Narrative* Gustabo Ritchie [...] kg), SpO2 100 %. Gustabo Isaak Pittman documented in this [id number] History of Present illness Narrative* April Jewell [...] Last GI Visit: 08/25/22 Background History Will Ralph is a 36 year old male with [...] GI Procedures none ASSESSMENT AND PLAN Will Ralph is a 36 year old male with [...] Gastroenterology Fellow Division of Gastroenterology & Hepatology [facility] 01/12/23, 9:01 AM Associated attestation - [...] Gary MD Division of Gastroenterology & Hepatology [facility] documented in this [id number] Instructions* Patient Instructions* Dejuan Lechuga MD - 12/16/2022 10:23 AM EDT [facility] [phone] [address] [facility] [address] Lab tests can be done at a scheduled visit, or by appointment. [facility] [phone] [address] [id number] Park in the Outpatient [place] [facility] (P9) Under the [facility]ty [facility]. Pathology is located in the Special[facility] [place] of the Outpatient [place] on the 2nd floor.Please fill out the paper form at the front end software developer then have a seat in the Outpatient Blood Draw Lab (Pathology) waiting area. Hours Thursday 07:00 AM - 05:30 PM Thursday 07:00 AM - 05:30 PM Thursday 07:00 AM - 05:30 PM 07:00 AM - 05:30 PM Thursday 07:00 AM - 05:30 PM [facility] [phone] [place] [address] Follow the overhead sign to [place]: Radiology/X-ray & Lab (right arrow). Check in for testing at the Radiology & Lab [employer]s Salesperson window. Hours Thursday 10:00 AM - 02:00 PM Thursday 08:00 AM - 07:30 PM Thursday 08:00 AM - 07:30 PM Thursday 08:00 AM - 07:30 PM 08:00 AM - 07:30 PM Thursday 08:00 AM - 07:30 PM Thursday 08:00 AM - 04:00 PM [facility] [phone] [place] [address] [place] at the front end software developer and you will be directed to the waiting area. Laboratory staff will takeyou back to the laboratory. Hours Thursday 10:00 AM - 02:00 PM Thursday 07:30 AM - 07:30 PM Thursday 07:30 AM - 07:30 PM Thursday 07:30 AM - 07:30 PM 07:30 AM - 07:30 PM Thursday 07:15 AM - 07:45 PM Thursday 08:00 AM - 04:00 PM [facility] [phone] [place], [place] [id number] Enter through the front door and continue [...] PM Thursday 08:00 AM - 04:00 PM [facility] [phone] [place], [place] [id number] The [facility] is located on the first [...] AM - 05:00 PM [facility] [phone] [place] [address] The [facility] is located on the first floor, room A1-4581. Enter through the Emergency doors and follow the signs to Medical Offices , making a right turn. [place] at the Registration 1A desk at the end of the hallway, then proceed to the Laboratory on the right. Hours Thursday 07:30 AM - 05:00 PM Thursday 07:30 AM - 05:00 PM Thursday 07:30 AM - 05:00 PM 07:30 AM - 05:00 PM Thursday 07:30 AM - 05:00 PM [facility] [phone] [place], [place] [id number] The [facility] is located on the first [...] AM - 05:00 PM documented in this [id number] History of Present illness Narrative* Dejuan Lehcuga MD - 12/16/2022 10:19 AM EDT Images from the original note were not included. Chief Complaint: Will Ralph comes to the clinic today for: Chief Complaint Patient presents with follow up Had an accident at work and fell. Present Illness: Mr.Amos Ralph comes to the clinic today for the [...] no previous surgical history on file. Diagnostics: [facility] laboratory/diagnostics reviewed and Outside laboratory/diagnostics reviewed [...] of . Aleja Rolon documented in this [id number] History of Present illness Narrative* Theo Burks MD - 12/15/2022 4:20 PM EDT [facility] Telemedicine Visit CC: Chief Complaint Patient [...] my hip. Patient has signed up for [employer]: Yes Patient past medical, social, family, and surgical history personally reviewed and updated in [employer]. OBJECTIVE: Sounds ewll, no acute distress Breathing comfrotably on room air ASSESSMENT AND PLAN: 1. Rib pain Orders & Meds Signed During This Encounter X-ray Ribs Left Unilateral (Routine) lidocaine (LIDODERM) 5 % patch Documentation: Mode: Telephone Patient Patient Work Phone: Patient Cell Preferred phone: [phone] Consent: I confirmed patient understanding of the [...] Burks MD Family Medicine documented in this [id number] Telephone encounter Note* Telephone Encounter - Aleja Rolon - 12/15/2022 9:14 AM EDT Called patient and made appointment with tomorrcamille [id number] Miscellaneous Notes* Telephone Encounter - Aleja Rolon - 12/15/2022 9:14 AM EDT Called patient and made appointment with tomorrow documented in this [id number] History of Present illness Narrative* Marcello Ibanez MD - 10/27/2022 10:42 AM EST Images from the original note were not included. Department of Gastroenterology and Hepatology Hepatology Clinic Follow Up Visit GI Attending Physician: Dr. Haley Gary MD PCP: Theo Burks MD Last GI Visit: 08/25/22 Background History Will Ralph is a 36 year old male with [...] GI Procedures none ASSESSMENT AND PLAN Will Ralph is a 36 year old male with [...] Gastroenterology Fellow Division of Gastroenterology & Hepatology [facility] 10/27/22, 10:43 AM * Schilling, Eze - 10/27/2022 9:49 AM EST Patient was identified by name and date of . Eze SchillingPatient at risk for falls:No Falls Risk protocol implemented: No documented in this [id number] History of Present illness Narrative* Haley Gary [...] GI Procedures none ASSESSMENT AND PLAN Will Ralph is a 36 year old male with [...] Gastroenterology Fellow Division of Gastroenterology & Hepatology [facility] 10/27/22, 10:43 AM Attending addendum: Suspect [...] Gary MD Division of Gastroenterology & Hepatology [facility] * Eze Schilling - 10/27/2022 9:49 AM EST Patient was identified by name and date of . Eze SchillingPatient at risk for falls:No Falls Risk protocol implemented: No documented in this [id number] History of Present illness Narrative* Haley Gary MD - 10/27/2022 10:42 AM EST Images from the original note were not included. Department of Gastroenterology and Hepatology Hepatology Clinic Follow Up Visit GI Attending Physician: Dr. Haley Gary MD PCP: Theo Burks MD Last GI Visit: 08/25/22 Background History Will Ralph is a 36 year old male with [...] GI Procedures none ASSESSMENT AND PLAN Will Ralph is a 36 year old male with [...] Gastroenterology Fellow Division of Gastroenterology & Hepatology [facility] 10/27/22, 10:43 AM Attending addendum: Suspect [...] Gary MD Division of Gastroenterology & Hepatology [facility] * Eze Schilling - 10/27/2022 9:49 AM EST Patient was identified by name and date of . Eze SchillingPatient at risk for falls:No Falls Risk protocol implemented: No documented in this [id number] Telephone encounter Note* Telephone Encounter - Tanika [...] and will need rescheduled. Tanika Arias RN [facility] Work Phone: 1(575) 938-539201-14-2023 Miscellaneous Notes* Telephone Encounter - Tanika Arias [...] rescheduled. Tanika Arias RN documented in this [id number] History of Present illness Narrative* Theo Burks MD - 08/29/2022 9:20 AM EST [facility] Telemedicine Visit CC: Chief Complaint Patient [...] surgical history personally reviewed and updated in [employer]. OBJECTIVE: There were no vitals taken for this visit. Gen: Sounds well, no acute distress Resp: breathing comfortably ASSESSMENT AND PLAN: 1. Cellulitis, unspecified cellulitis site 2. Muscle soreness Orders & Meds Signed During This Encounter Creatine Kinase Documentation: Mode: Telephone Patient Patient Work Phone: Patient Cell Preferred phone: [phone] Consent: I confirmed patient understanding of the [...] Burks MD Family Medicine documented in this [id number] Instructions* Patient Instructions* Theo Burks MD - 08/25/2022 2:16 PM EST Continue antibiotics for another 7 days Topical antibiotic ointment for left foot Follow up on Thursday Refilled zofran (anti-nausea medication) documented in this [id number] History of Present illness Narrative* Theo Burks MD - 08/25/2022 1:31 PM EST Images from the original note were not included. [facility] Family Medicine Office Visit CC: Chief [...] surgical history personally reviewed and updated in [facility]. OBJECTIVE: BP 132/65 (BP Location: left [...] Burks MD Family Medicine documented in this [id number] History of Present illness Narrative* Abbey Alvarez MD - 08/25/2022 10:44 AM EST Images from the original note were not included. Department of Gastroenterology and Hepatology Hepatology New Clinic Visit GI Attending Physician: Dr. Haley Gary MD PCP: No primary care provider on file. Reason for Visit/Chief Complaint: EtOH cirrhosis History of Present Illness Will Ralph is a 36 year old male with history notable for EtOH cirrhosis (decompensated by ascites), autoimmune hemolytic anemia (on cellcept) who was referred to hepatology clinic for EtOH cirrhosis. Admitted to [facility] ICU for acute alcoholic hepatitis (MDF 43) [...] B27 positive) 2003 Followed with Rheum at [facility] Open fracture of other and unspecified [...] NA Colonoscopy NA ASSESSMENT AND PLAN Will Ralph is a 36 year old male with [...] Gastroenterology Fellow Division of Gastroenterology & Hepatology [facility] 08/25/22, 10:44 AM * Rositathomas Maura - 08/25/2022 10:40 AM EST Patient was identified by name and date of . Maura Wilhelmjesica Patient at risk for falls:No Falls Risk protocol implemented: No documented in this [id number] History of Present illness Narrative* Abbey Alvarez MD - 08/25/2022 10:44 AM EST Images from the original note were not included. Department of Gastroenterology and Hepatology Hepatology New Clinic Visit GI Attending Physician: Dr. Haley Gary MD PCP: No primary care provider on file. Reason for Visit/Chief Complaint: EtOH cirrhosis History of Present Illness Will Ralph is a 36 year old male with history notable for EtOH cirrhosis (decompensated by ascites), autoimmune hemolytic anemia (on cellcept) who was referred to hepatology clinic for EtOH cirrhosis. Admitted to [facility] ICU for acute alcoholic hepatitis (MDF 43) [...] B27 positive) 2003 Followed with Rheum at [facility] Open fracture of other and unspecified [...] NA Colonoscopy NA ASSESSMENT AND PLAN Will Ralph is a 36 year old male with [...] Gastroenterology Fellow Division of Gastroenterology & Hepatology [facility] 08/25/22, 10:44 AM * Maura Canela - 08/25/2022 10:40 AM EST Patient was identified by name and date of . Maura Beckerthomas Patient at risk for falls:No Falls Risk protocol implemented: No documented in this [id number] History of Present illness Narrative* Abbey Alvarez MD - 08/25/2022 10:44 AM EST Images from the original note were not included. Department of Gastroenterology and Hepatology Hepatology New Clinic Visit GI Attending Physician: Dr. Haley Gary MD PCP: No primary care provider on file. Reason for Visit/Chief Complaint: EtOH cirrhosis History of Present Illness Will Ralph is a 36 year old male with history notable for EtOH cirrhosis (decompensated by ascites), autoimmune hemolytic anemia (on cellcept) who was referred to hepatology clinic for EtOH cirrhosis. Admitted to [facility] ICU for acute alcoholic hepatitis (MDF 43) [...] B27 positive) 2003 Followed with Rheum at [facility] Open fracture of other and unspecified [...] NA Colonoscopy NA ASSESSMENT AND PLAN Will Ralph is a 36 year old male with [...] Gastroenterology Fellow Division of Gastroenterology & Hepatology [facility] 08/25/22, 10:44 AM Associated attestation - [...] Gary MD Division of Gastroenterology & Hepatology [facility] * Maura Canela - 08/25/2022 10:40 AM EST Patient was identified by name and date of . Maura Canela Patient at risk for falls:No Falls Risk protocol implemented: No documented in this [id number] Note* Addendum Note - Tanvir Black MD - 08/21/2022 8:52 PM ESTAddended by: TANVIR BLACK on: 08/21/2022 08:52 PM Modules accepted: Orders [id number] Miscellaneous Notes* Addendum Note - Tanvir Black MD - 08/21/2022 8:52 PM ESTAddended by: TANVIR BLACK on: 08/21/2022 08:52 PM Modules accepted: Orders documented in this [id number] History of Present illness Narrative* Tanvir Black MD - 08/16/2022 11:07 AM EST Images from the original note were not included. Reviewed urine C&S. Urine growing klebsiella pneumoniae, with intermediate sensitivity to Macrobid. Culture Positive Culture Report Abnormal >100,000 CFU/ml Klebsiella pneumoniae [place]ing [place] [facility] Klebsiella pneumoniae BHAVIN Amoxicillin + Clavulanate [...] Phone numbers Preferred Tanvir Black MD Pgr [phone] Hematology/Oncology 08/16/2022 . documented in this [id number] Hospital Discharge instructions* Discharge Instructions* Dante French MD - 08/15/2022 3:08 PM EST EMERGENCY DEPARTMENT FOLLOW-UP: Please see your Primary Care Physician at next available appointment for follow up. Please call today or tomorrow to make an appointment. Residents of [facility] may apply for discounts available only to residents of this formerly [facility] by contacting the Eligibility Call Center at [phone]. If you do not have a primary physician please call [phone] for [facility]. PLEASE NOTE: If you are [...] during this visit: None documented in this [id number] History of Present illness Narrative* Nenita Franco [...] B27 positive) 2003 Followed with Rheum at [facility] Open fracture of other and unspecified [...] of . Katie Paniagua documented in this [id number] History of Present illness Narrative* Tanvir Black MD - 08/14/2022 3:53 PM EST Images from the original note were not included. Hematology & Oncology Clinic Note Reason for Consult: Hemolytic anemia Alcoholic cirrhosis Thrombocytopenia Long-term steroid use Referring Provider: Afua Umanzor MD Chief Complaint Patient presents with AIHA right leg swelling right leg erythema History of Present Illness Will Ralph is a 36 year old male with [...] B27 positive) 2003 Followed with Rheum at [facility] Open fracture of other and unspecified [...] History, as above. Assessment & Plan Will Ralph is a 36 year old male with [...] Time Provider Department Center 08/19/2022 8:[address] [facility] OP ULTRASOUND [facility] Radiolog 08/19/2022 1:[address] [facility] OP ULTRASOUND [address] [facility] [address] [facility] Radiolog 08/28/2022 10:30 AM Saskia Madison APRN-CNP [facility] 09/19/2022 11:00 AM Saskia Madison APRN-CNP [facility] 11/13/2022 11:30 AM [facility] 12:00 PM ONC NURSE [facility] Tanvir Black MD Hematology/Oncology 08/14/22 4:09 PM * Jojo Garcia - 08/14/2022 11:52 AM EST .Patient was identified by name and date of . Jojo Garcia .Patient at risk for falls:No Falls Risk protocol implemented: No documented in this [id number] History of Present illness Narrative* Emily Dunn RN - 08/14/2022 2:08 PM EST During this visit the vaccine(s) was: Administered Obtained informed verbal consent from patient/parent/patient nutrition representative for immunization(s) as ordered, questionnaire completed and VIS educational handouts reviewed with patient/parent/patient nutrition representative who denies contraindications and verbalizes understanding of indication, potential side effect and actions to be taken if side effects occur. Double identification of patient completed with patient/parent/patient nutrition representative using name and prior to administration, and patient tolerated immunization(s) administration without incident. * Maura Canela - 08/14/2022 1:08 PM EST Patient was identified by name and date of . Maura WilhelmoPatient at risk for falls:No Falls Risk protocol implemented: No * Saskia Madison APRN-DAYAMI - 08/14/2022 1:00 PM EST Images from the original note were not included. Department of Hepatology Patient name: Will Ralph : 1985 Date: 08/14/22 Referring Provider: Tanvir Black MD Subjective Chief Complaint: I had the pleasure of speaking with Will Ralph, for chief complaint of cirrhosis(see problem-baseddocumentation below for details). A copy of today's note will be communicated to referring doctor via the electronic medical record or fax. Referring Provider: Tanvir Black MD History of Present Illness: Will Ralph is a 36 year old male who [...] B27 positive) 2003 Followed with Rheum at [facility] Open fracture of other and unspecified [...] and/or coordination of care. Sincerely, KONRAD Quevedo [facility] Division of Gastroenterology & Hepatology 08/14/22 1:54 PM GI clinic documented in this [id number] History of Present illness Narrative* Emily Dunn RN - 08/14/2022 2:08 PM EST During this visit the vaccine(s) was: Administered Obtained informed verbal consent from patient/parent/patient nutrition representative for immunization(s) as ordered, questionnaire completed and VIS educational handouts reviewed with patient/parent/patient nutrition representative who denies contraindications and verbalizes understanding of indication, potential side effect and actions to be taken if side effects occur. Double identification of patient completed with patient/parent/patient nutrition representative using name and prior to administration, and patient tolerated immunization(s) administration without incident. * Maura Canela - 08/14/2022 1:08 PM EST Patient was identified by name and date of . Maura Foxtient at risk for falls:No Falls Risk protocol implemented: No * Saskia Madison, [address] PATROL-UNIFIED COMMUNICATIONS ARCHITECT - 08/14/2022 1:00 PM EST Images from the original note were not included. Department of Hepatology Patient name: Will Ralph : 1985 Date: 08/15/22 Referring Provider: Tanvir Black MD Subjective Chief Complaint: I had the pleasure of speaking with Will Ralph, for chief complaint of cirrhosis(see problem-baseddocumentation below for details). A copy of today's note will be communicated to referring doctor via the electronic medical record or fax. Referring Provider: Tanvir Black MD History of Present Illness: Will Ralph is a 36 year old male who [...] B27 positive) 2003 Followed with Rheum at [facility] Open fracture of other and unspecified [...] and/or coordination of care. Sincerely, KONRAD Quevedo [facility] Division of Gastroenterology & Hepatology 08/15/22 8:19 AM GI clinic documented in this [id number] History of Present illness Narrative* Emily Dunn RN - 08/14/2022 2:08 PM EST During this visit the vaccine(s) was: Administered Obtained informed verbal consent from patient/parent/patient nutrition representative for immunization(s) as ordered, questionnaire completed and VIS educational handouts reviewed with patient/parent/patient nutrition representative who denies contraindications and verbalizes understanding of indication, potential side effect and actions to be taken if side effects occur. Double identification of patient completed with patient/parent/patient nutrition representative using name and prior to administration, [...] included. Department of Hepatology Patient name: Will Ralph : 1985 Date: 08/15/22 Referring Provider: Tanvir Black MD Subjective Chief Complaint: I had the pleasure of speaking with Will Ralph, for chief complaint of cirrhosis(see problem-baseddocumentation below for details). A copy of today's note will be communicated to referring doctor via the electronic medical record or fax. Referring Provider: Tanvir Black MD History of Present Illness: Will Ralph is a 36 year old male who [...] B27 positive) 2003 Followed with Rheum at [facility] Open fracture of other and unspecified [...] likely 2/2 hemolytic anemia) -discuss with transplant communications designer, Dr. Gary and arrange for f/u in [...] and/or coordination of care. Sincerely, KONRAD Quevedo [facility] Division of Gastroenterology & Hepatology 08/15/22 8:19 AM GI clinic documented in this [id number] History of Present illness Narrative* Jasmyne Grimaldo RN - 08/14/2022 1:07 PM EST Patient was identified by name and date of . Jasmyne Grimadlo RN Patient at risk for falls:No Falls Risk protocol implemented: No Patient in for MD visit, lab draw, and urine test. Urine collected and sent to lab. Unable to draw blood after several attempts. Patient instructed to go to outpatient lab for blood work, stickers given to patient. Patient verbalized understanding of instructions and discharged from clinic. Jasmyne Grimaldo RN documented in this [id number] Instructions* Patient Instructions* Emily Dunn RN - [...] these numbers to schedule your Upper Endoscopy. [facility] [address] [place], [place] [address] [place] Entrance Thursday-Thursday 8A-4P [facility] [address] [place], [place] [id number] Thursday-Thursday 8A-4P [facility]. [address] [place], [place] [phone] Thursday-Thursday 8A-4P Centralized GI Procedure scheduling: UPPER [...] 1 hr early (7:00 am). Please call M-P 7:00am-6:00pm for any pre-procedural questions. After hours, please call to speak to the [facility] nurse corporate relations director. If you need to cancel this appointment, please call , at least 48 hours before your appointment time. For additional health or procedure preparation information call the [employer] line at . The [employer] line is open 24 hours a day including weekends and holidays. PLEASE BRING IN YOUR INSURANCE CARD AND MEDICATIONS OR LIST OF CURRENT MEDICATIONS. PLEASE LEAVE JEWELRY AT HOME AND DO NOT WEAR HEAVY FRAGRANCE OR NAIL BHUTANESE WE MAKE EVERY ATTEMPT TO MAINTAIN OUR [...] any problems or questions, please call the [facility] line at [phone]. documented in this [id number] Instructions* Patient Instructions* Emily Dunn RN - [...] these numbers to schedule your Upper Endoscopy. [place] [id number] [facility] Thursday-Thursday 8A-4P [facility] [address] [place], [place] [phone] Thursday-Thursday-4P [facility]. [address] [place], [place] [phone] Thursday-Thursday 8A-4P Centralized GI Procedure scheduling: UPPER [...] hours, please call to speak to the [facility] nurse corporate relations director. If you need to cancel this appointment, please call , at least 48 hours before your appointment time. For additional health or procedure preparation information call the [employer] line at . The [employer] line is open 24 hours a day including weekends and holidays. PLEASE BRING IN YOUR INSURANCE CARD AND MEDICATIONS OR LIST OF CURRENT MEDICATIONS. PLEASE LEAVE JEWELRY AT HOME AND DO NOT WEAR HEAVY FRAGRANCE OR NAIL BHUTANESE WE MAKE EVERY ATTEMPT TO MAINTAIN OUR [...] any problems or questions, please call the [employer] line at [phone]. documented in this [id number] History of Present illness Narrative* Tanvir Black MD - 05/06/2022 4:11 PM EDT Images from the original note were not included. Hematology & Oncology Clinic Note Reason for Consult: Hemolytic anemia Alcoholic cirrhosis Thrombocytopenia Long-term steroid use Referring Provider: Afua Umanzor MD Chief Complaint Patient presents with AIHA On cellcept Cirrhosis/other liver disease History of Present Illness Will Ralph is a 36 year old male with [...] B27 positive) 2003 Followed with Rheum at [facility] Open fracture of other and unspecified [...] History, as above. Assessment & Plan Will Ralph is a 36 year old male with [...] Center 08/14/2022 11:30 AM Tanvir Black MD [facility] 08/14/2022 12:00 PM ONC NURSE [facility] 08/14/2022 1:00 PM Saskia Madison APRN-UNIFIED COMMUNICATIONS ARCHITECT [facility] Tanvir Black MD Hematology/Oncology 05/06/22 4:11 PM * ScottSally - 05/06/2022 10:03 AM EDT Patient was [...] 100 %. Sally Chavez documented in this [id number] History of Present illness Narrative* Leslie Canela [...] results. Leslie Canela RN documented in this [id number] History of Present illness Narrative* Rosita Le RN - 03/13/2022 12:29 PM EDT Patient was identified by name and date of . 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 Blood obtained via venipuncture from RAC lfvof90V 3/4in butterfly needle. Blood specimen sent to lab. Pt tolerated procedure well. Pt verbalized follow up instructions and discharged home in stable condition. Rosita Le RN documented in this [id number] History of Present illness Narrative* Tanvir Black MD - 03/13/2022 11:45 AM EDT Images from the original note were not included. Hematology & Oncology Clinic Note Reason for Consult: Hemolytic anemia Alcoholic cirrhosis Thrombocytopenia Long-term steroid use Referring Provider: Afua Umanzor MD Chief Complaint Patient presents with Monitoring/follow-up Fatigue nausea and vomiting History of Present Illness Will Ralph is a 36 year old male with [...] B27 positive) 2003 Followed with Rheum at [facility] Open fracture of other and unspecified [...] History, as above. Assessment & Plan Will Ralph is a 36 year old male with [...] to oncologist closer to his home in [facility]. Patientto call back with name of gravel wheeler and fax number.will keep care here with [...] AM MAIN CARD TEST-311 Non Inv Card [facility] 05/06/2022 10:30 AM Tanvir Black MD [facility] 05/06/2022 11:00 AM ONC NURSE [facility] Tanvir Black MD Hematology/Oncology 03/13/22 5:20 PM * Jojo Garcia - 03/13/2022 11:41 AM EDT .Patient was identified by name and date of . Jojo Garcia .Patient at risk for falls:Yes Falls Risk protocol implemented: No documented in this [id number] Hospital Discharge instructions Patient Education 02/17/2022 16:25:10 [...] care provider. Do not drink alcohol. Take cizk-res-hgoramz and prescription medicines only as told by [...] 08/24/2006 Document Revised: 05/26/2019 Document Reviewed: 05/26/2019 [employer] Patient Education 2020 [employer]. 02/17/2022 16:25:10 Cellulitis, Adult Cellulitis, Adult Cellulitis [...] wounds on the skin, such as cuts, aemzquita, bites, and scrapes. Bacteria can enter the [...] Follow these instructions at home: Medicines Take vryy-vxj-tkrdgbb and prescription medicines only as told by [...] such as antibiotic medicines or antihistamines. Take jksu-yqt-joxrbtm and prescription medicines only as told by [...] 06/03/2006 Document Revised: 01/13/2019 Document Reviewed: 01/13/2019 [employer] Patient Education 2020 [employer] 02/17/2022 16:25:10 Hypokalemia Hypokalemia Hypokalemia means [...] hospital. Follow these instructions at home: Take rges-hlk-xcneczm and prescription medicines only as told by [...] cantaloupe, kiwi, oranges, tomatoes, asparagus, and potatoes. ?Kelliher juice. ?Tomato juice. ?Red meats. ?Yogurt. Keep [...] 08/24/2006 Document Revised: 04/06/2019 Document Reviewed: 04/06/2019 [employer] Patient Education 2020 [employer]. 02/17/2022 16:25:10 Peripheral Edema Peripheral Edema Peripheral [...] by your health care provider. Medicines Take guli-lzz-tqcvlci and prescription medicines only as told by [...] 10/01/2005 Document Revised: 05/18/2019 Document Reviewed: 05/18/2019 [employer] Patient Education 2020 [employer]. Follow Up Care 02/17/2022 12:28:34 With:Milagros Barakat Address:Unknown When:02/20/2022 15:52:54 Comments:Return to the emergency room if your pain gets worse, fever, swelling gets worse or any new symptoms With:Colby Link Address: [address] [facility] [place] [address]- Business (1) When:Within 3 Day(s) [facility]06-13-2022 Evaluation + Plan noteExtracted from: Title:ED Note Author:Christi Luo M.D. te:02/17/22 1. Pedal edema (R60.0: Local ized edema) 2. Cellulitis of scrotum (N49.2: Inflammatory disorders of scrotum) 3. Thrombocytopenia (D69.6: Thrombocytopenia, unspecified) 4. Hypokalemia (E87.6: Hypokalemia) Orders: clindamycin, 300 mg = 2 cap(s), Oral, QID, # 56 cap(s), Refills(s) 0, [facility], 170.2, cm, 02/17/22 12:34:00 EDT, Height/Length Dosing, [...] Charcoal 02/17/22 * Blood Culture Charcoal 02/17/22 [facility]06-07-2022 Telephone encounter Note* Telephone Encounter - Kulwinder Dozier, Henry - 02/11/2022 1:58 PM EDT Chemotherapy Education Note Will Ralph is a 36 year old male recently [...] Kulwinder Dozier PharmD, PharmD. Oncology Specialty Pharmacist [id number] Date: 02/11/22 [id number] Miscellaneous Notes* Telephone Encounter - Kulwinder Dozier PharmD - 02/11/2022 1:58 PM EDT Chemotherapy Education Note Will Ralph is a 36 year old male recently [...] Kulwinder Dozier PharmD, PharmD. Oncology Specialty Pharmacist [id number] Date: 02/11/22 * Telephone Encounter - Kulwinder Dozier PharmD - 02/11/2022 12:39 PM EDT Images from the original note were not included. [facility] Oncology Specialty Pharmacy Referral [facility] received a prescription for MMF (Cellcept) for this patient on 02/11/2022. [facility] has been contacted to initiate a Prior Authorization for this medication. This is an immunomodulatory agent Patient Information: Will Ralph is a 36 year old male [address] [id number] Insurance on file: [employer] ID: [id number] BIN: [id number] PCN: -- Group: [id number] Specialty Medication Medication and dosing: mycophenolate (CELLCEPT) 500 MG tablet- Take 2 tablets by mouth 2 times daily. 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 [...] pharmacist once medication is approved. Questions for [facility] may be directed to [phone] option 3. Thank you for the referral, Kulwinder Dozier PharmD Oncology Specialty Pharmacist [phone] documented in this [id number] Telephone encounter Note* Telephone Encounter - Kulwinder Dozier PharmD - 02/11/2022 12:39 PM EDT Images from the original note were not included. [facility] Referral [facility] received a prescription for MMF (Cellcept) for this patient on 02/11/2022. [facility] has been contacted to initiate a Prior Authorization for this medication. This is an immunomodulatory agent Patient Information: Will Ralph is a 36 year old male [address] [address] [id number] Insurance on file: [employer]ER[employer] ID: [id number] BIN: [id number] PCN: -- Group: [id number] Specialty Medication Medication and dosing: mycophenolate (CELLCEPT) 500 MG tablet- Take 2 tablets by mouth 2 times daily. 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 [...] pharmacist once medication is approved. Questions for [facility] may be directed to [phone] option 3. Thank you for the referral, Kulwinder Dozier, AbhijeetD Oncology Specialty Pharmacist [phone] History of Present illness Narrative* Cyn Hopper RN - 02/11/2022 11:45 AM EDT Patient was identified by name and date of . 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 Blood obtained via venipuncture from RAC using 23G 3/4in butterfly needle. Blood specimen sent to lab. Pt tolerated procedure well, dressing applied. AVS provided and reviewed. Pt verbalized follow up instructions and discharged home in stable condition. Cyn Hopper RN documented in this [id number] Miscellaneous Notes* Telephone Encounter - Liseth Santana [...] patient 2. [place] [phone] (Pharmacy Prior Authorization Pool) Patient advised to follow up with provider's office if they have any further questions or if no answer after 3 business days. Providers office is to contact patient to advise of medication changes/next steps documented in this [id number] Miscellaneous Notes* Care Plan Note - Rosa [...] Outcome: Adequate for Discharge 01/17/2022 1626 by Hayba, Rosa, RN Outcome: [...] RNF BARRIERS TO PLAN OF CARE: None LIABILITY ANALYST RN Jessee Callahan RN DAY SHIFT RN [...] was yellow x 1 day. While at [facility], patient was HDS, however noted with significant bru ising and edema of LUE. Reportedly, trauma surgery was consulted at [facility] and there was initially concern for compartment syndrome and fasciotomy was considered, but ultimately did not occur at the time. The trauma attending Dr. Du recommended orthopedic consultation upon arrival to the [facility] MICU. While at [facility] labs significant for indirect hyperbilirubinemia, and acute macrocytic anemia 6.9 requiring 1u pRBC and [address] Abd/Pelvis W/ Contrast showed liver cirrhosis and steatosis without CBD dilation. Received morphine, ceftriaxone, protonix, thiamine. Started on NS for rhabdo. Patient transferred to [facility] for tertiary center care. While in the [facility] MICU, Ortho following - request MR L [...] (PRN) Note: Family updated ? Transfer to [facility] soon- weaning precidex off Sw/piano case maker for dc concerns Problem: Safety: Goal: Free [...] OF CARE: BARRIERS TO PLAN OF CARE: LIABILITY ANALYST RN: Bharat Callahan DAY SHIFT RN: Meli Keane * 1:1 Interaction - Keo Gaona MD - 01/14/2022 7:42 AM EDT Images from the original note were not included. SECLUSION/RESTRAINTS PROVIDER FXSO-EP-XRYE EVALUATION NOTE Will Ralph was evaluated on 01/14/22 at 7:30 pm. [...] additional home-going needs (PRN) Note: Family updates Sw/piano case maker as needed Problem: Safety: Goal: Free from [...] Precidex drip- weaning as able . See [facility] Intervention: Implement seizure precautions (continuous) Note: Seizure [...] management: PRN and scheduled pain medications, see [facility]. Nursing concerns: none DISPOSITION: Transfer: No Discharge: No Can patient be transferred to lower level of care: No Criteria for transfer (stable H&H etc.): Pt not ready for discharge at this time Nursing concerns: none OVERNIGHT CONCERNS: none NOTES REGARDING PLAN OF CARE: none BARRIERS TO PLAN OF CARE: none LIABILITY ANALYST IRENA Unger RN DAY SHIFT IRENA Graham RN * 1:1 Interaction - Hannah Leggett MD - 01/13/2022 4:30 AM EDT Images from the original note were not included. SECLUSION/RESTRAINTS PROVIDER FOUD-XI-ZJIY EVALUATION NOTE Will Ralph was evaluated on 01/13/22 at 0430. The [...] None BARRIERS TO PLAN OF CARE: None LIABILITY ANALYST RN : Elsa Jenkins RN DAY SHIFT [...] original note were not included. SECLUSION/RESTRAINTS PROVIDER FVPE-PH-RTJO EVALUATION NOTE Will Ralph was evaluated on 01/12/22 at 0040. The [...] none BARRIERS TO PLAN OF CARE: none LIABILITY ANALYST IRENA Canales DAY SHIFT IRENA Childers * 1:1 Interaction - Hannah Leggett MD - 01/11/2022 1:39 AM EDT Images from the original note were not included. SECLUSION/RESTRAINTS PROVIDER LYIY-RN-TSOQ EVALUATION NOTE Will Ralph was evaluated on 01/11/22 at 0140. The [...] ability to remain still for MRI. Dr. Curry aware. LIABILITY ANALYST IRENA Jameson DAY SHIFT IRENA Childers * 1:1 Interaction - Abhinav De La Vega DO - 01/10/2022 2:31 PM EDT SECLUSION/RESTRAINTS PROVIDER FUME-OP-YWAC EVALUATION NOTE Will Ralph was evaluated on 01/10/22 at 1430. The [...] original note were not included. SECLUSION/RESTRAINTS PROVIDER EMGU-BJ-KVYC EVALUATION NOTE Will Ralph was evaluated on 01/10/22 at 0508. The [...] were discussed with the patient and/or legal nutrition representative. The risks, benefits and alternatives were reviewed. Questions regarding blood transfusions were answered. The patient /or the patient s legal nutrition representative agree with the plan for transfusion [...] - 01/09/2022 9:02 AM EDT SECLUSION/RESTRAINTS PROVIDER HIZA-GK-FDQN EVALUATION NOTE Will Ralph was evaluated on 01/09/22 at 0902. The [...] restraints and once discontinued 01/09/2022629 by Bang Jamesno RN Outcome: Progressing Note: Pt requiring soft [...] in order to promote comfort. 01/09/2022628 by Bnag Jameson RN Outcome: Progressing Problem: VTE Prophylaxis: [...] original note were not included. SECLUSION/RESTRAINTS PROVIDER AMPB-QV-LEWV EVALUATION NOTE Will Ralph was evaluated on 01/09/22 at 0526. The [...] - 01/08/2022 10:46 PM EDT SECLUSION/RESTRAINTS PROVIDER BSTK-IS-AABI EVALUATION NOTE Will Ralph was evaluated on 01/08/22 at 2230. The [...] of harm to self documented in this [id number] Hospital course Narrative* Afua Umanzor MD - 01/17/2022 3:31 PM EDT Images from the original note were not included. DISCHARGE SUMMARY [address] [address] Will Ralph Date of : 1985 36 year old [...] Referral Type: Service Level Authorization Referral Location: [facility] ORTHO HAND Number of Visits Requested: 3 Expiration Date: 01/17/23 HEMATOLOGY SERVICE REQUEST Referral Priority: Routine Referral Type: Service Level Authorization Referral Location: [facility] HEMATOLOGY Number of Visits Requested: 3 Expiration Date: 01/17/23 LIVER SERVICE REQUEST Referral Priority: Routine Referral Type: Service Level Authorization Referral Location: [facility] LIVER Number of Visits Requested: 3 Expiration Date: 01/17/23 Future Appointments Date Time Provider Department Center 01/20/2022 11:00 AM Abbey Alvarez MD [facility] 01/23/2022 11:45 AM Ronen Welch MD [facility] 02/11/2022 10:00 AM Tanvir Black MD [facility] Condition at Discharge Improved Activity [...] bilirubin may falsely lower creatinine 169 63 005 32 0753 6.4 2.6 2.10 11.1 Comment: Elevated bilirubin [...] followed by pain. He was seen at [facility] and transferred to ICU He [...] he will get assistance from rehab in [place] for alcohol abuse. On the day of discharge, patient was stable. Left arm swelling was improving. He has good peripheral pulses in the left arm. He is alert and oriented x3. CVS - systolic murmur, lungs - clear to auscultation, abdomen - soft, nontender, SONAR TECHNICIAN - alert, moving all extremities. Current Discharge [...] follow-up Afua umanzor MD documented in this [id number] History of Present illness Narrative* Kennedi Best [...] resources. Pt declines assistance. RAI Claudio, JOSH-S [phone] * Afua Umanzor MD - 01/16/2022 8:18 AM EDT Images from the original note were not included. GENERAL MEDICAL FLOOR DAILY PROGRESS NOTE Will Ralph [id number] 1044/01/16/2022 Length of stay: 8 day(s) SUBJECTIVE: [...] 9.2 1.92 7.4 21.6 112 23.7 94 05/11/22 0327 8.9 1.88 7.3 21.1 113 24.4 [...] ceftriaxone. Prophylaxis: SCD Code Status: full Afua kolluru, MD * Leon Santana MD - 01/15/2022 9:47 AM EDT Images from the original note were not included. MICU ATTENDING NOTE LEON SANTANA MD - PIN [id number] I saw and evaluated the patient. I personally obtained the ferraro and critical portions of the historyand physical examination. I reviewed the resident's documentation and discussed the patient with the resident. I agree with the resident's medical decision making as documented in the resident's note. Additional findings and notation: Will Ralph is a 36 year old man with [...] Director, Pulmonary, Critical Care and Sleep Medicine [facility] * KristenanaidReanna Olivares, [facility] - 01/15/2022 9:24 AM EDT Pharmacy Intravenous to Enteral Dose Conversion Service Name: Will Ralph Age: [age] year old Gender: male Ht: 5' 7 Wt: 61.8 kg Patient is currently prescribed the follow intravenous medication(s): RX iv to po active orders (From [...] Dietary Orders (24h ago, onward) Start Ordered 01/15/22 09 Full Liquid DIET References: System Diet Manual [...] updated per consult agreement. REANNA DOYLE [facility] Department of Pharmacy Services * Keo Gaona MD - 01/15/2022 7:51 AM EDT Images from the original note were not included. [facility] Medical Intensive Care Unit Critical Care Progress Note Will Ralph 36 year old [id number] lbs MRN/Room: [id number]/CP3-303/1 Length of stay: 7 day(s) Summary 36M [...] was yellow x 1 day. While at [facility], patient was HDS, however noted with significant bru ising and edema of LUE. Reportedly, trauma surgery was consulted at [facility] and there was initially concern for compartment syndrome and fasciotomy was considered, but ultimately did not occur at the time. The trauma attending Dr. Du recommended orthopedic consultation upon arrival to the [facility] MICU. While at [facility] labs significant for indirect hyperbilirubinemia, and acute macrocytic anemia 6.9 requiring 1u pRBC and [address] Abd/Pelvis W/ Contrast showed liver cirrhosis and steatosis without CBD dilation. Received morphine, ceftriaxone, protonix, thiamine. Started on NS for rhabdo. Patient transferred to [facility] for tertiary center care. While in the [facility] MICU, Ortho following - request MR L [...] Daily dexmedetomidine (PRECEDEX) IV infusion orderable Stopped (01/15/22344) [...] Bili T Bili Alk Phos ALT AST 01/15/22326 6.5 2.6 2.10 10.8 Comment: Elevated [...] improving with IV hydration Hyperbilirubinemia worsening since [facility]. DDx favors hemolysis - could be [...] No overt GIB. s/p 1u pRBC from 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 MICU ATTENDING NOTE LEON SANTANA MD - PIN [id number] I saw and evaluated the patient. I [...] medical issues requiring critical care management include: SONAR TECHNICIAN FAILURE. HEPATIC FAILURE . Additional findings and notation: Will Ralph is a 36 year old man with [...] may falsely lower creatinine 177 62 104 05/09/22 0252 6.2 2.6 2.10 11.4 Comment: Elevated [...] Director, Pulmonary, Critical Care and Sleep Medicine [facility] * Keo Gaona MD - 01/14/2022 7:42 AM EDT Images from the original note were not included. [facility] Medical Intensive Care Unit Critical Care Progress Note Will Ralph 36 year old 136.685 lbs MRN/Room: [id number]/CP3-303/1 Length of stay: 6 day(s) Summary 36M [...] was yellow x 1 day. While at [facility], patient was HDS, however noted with significant bru ising and edema of LUE. Reportedly, trauma surgery was consulted at [facility] and there was initially concern for compartment syndrome and fasciotomy was considered, but ultimately did not occur at the time. The trauma attending Dr. Du recommended orthopedic consultation upon arrival to the [facility] MICU. While at [facility] labs significant for indirect hyperbilirubinemia, and acute macrocytic anemia 6.9 requiring 1u pRBC and [address] Abd/Pelvis W/ Contrast showed liver cirrhosis and steatosis without CBD dilation. Received morphine, ceftriaxone, protonix, thiamine. Started on NS for rhabdo. Patient transferred to [facility] for tertiary center care. 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 [facility] Medical Intensive Care Unit Critical Care Progress Note Will Ralph 36 year old [id number] lbs MRN/Room: [id number]/CP3-303/1 Length of stay: 5 day(s) Summary 36M [...] was yellow x 1 day. While at [facility], patient was HDS, however noted with significant bru ising and edema of LUE. Reportedly, trauma surgery was consulted at [facility] and there was initially concern for compartment syndrome and fasciotomy was considered, but ultimately did not occur at the time. The trauma attending Dr. Du recommended orthopedic consultation upon arrival to the [facility] MICU. While at [facility] labs significant for indirect hyperbilirubinemia, and acute macrocytic anemia 6.9 requiring 1u pRBC and [address] Abd/Pelvis W/ Contrast showed liver cirrhosis and steatosis without CBD dilation. Received morphine, ceftriaxone, protonix, thiamine. Started on NS for rhabdo. Patient transferred to [facility] for tertiary center care. While in the [facility] MICU, Ortho following - request MR Nadia [...] (PRECEDEX) IV infusion orderable 1.4 mcg/kg/hr (01/13/22 09) Tube feed 20 mL/hr at 01/09/22 1500 [...] Gap Glu BUN Cr Ca Mg PO4 01/13/22251 135 3.4 99 29 10 130 [...] T Bili Alk Phos ALT AST 01/13/22 025 6.2 2.6 2.10 11.4 Comment: [...] improving with IV hydration Hyperbilirubinemia worsening since [facility]. 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 MICU ATTENDING NOTE LEON SANTANA MD - PIN [id number] I saw and evaluated the patient. I [...] management include: ACUTE BLOOD LOSS ANEMIA and SONAR TECHNICIAN FAILURE. HEPATIC FAILURE . Additional findings and notation: Will Ralph is a 36 year old man with [...] Gap Glu BUN Cr Ca Mg PO4 01/13/22251 135 3.4 99 29 10 130 [...] Director, Pulmonary, Critical Care and Sleep Medicine [facility] * Codi Thurman LSW - 01/13/2022 [...] ATTENDING NOTE LEON SANTANA MD - PIN [id number] I saw and evaluated the patient. I [...] management include: ACUTE BLOOD LOSS ANEMIA and SONAR TECHNICIAN FAILURE, HEPATIC FAILURE. Additional findings and notation: Will Ralph is a 36 year old man with [...] Director, Pulmonary, Critical Care and Sleep Medicine [facility] * Keo Gaona MD - 01/12/2022 8:32 AM EDT Images from the original note were not included. [facility] Intensive Care Unit Critical Care Progress Note Will Ralph 36 year old [id number] lbs MRN/Room: [id number]/CP3-303/1 Length of stay: 4 day(s) Summary 36M [...] was yellow x 1 day. While at [facility], patient was HDS, however noted with significant bru ising and edema of LUE. Reportedly, trauma surgery was consulted at [facility] and there was initially concern for compartment syndrome and fasciotomy was considered, but ultimately did not occur at the time. The trauma attending Dr. Du recommended orthopedic consultation upon arrival to the [facility] MICU. While at [facility] labs significant for indirect hyperbilirubinemia, and acute macrocytic anemia 6.9 requiring 1u pRBC and [address] Abd/Pelvis W/ Contrast showed liver cirrhosis and steatosis without CBD dilation. Received morphine, ceftriaxone, protonix, thiamine. Started on NS for rhabdo. Patient transferred to [facility] for tertiary center care. While in the [facility] MICU, Ortho following - request MR Zuniga elbow for assessment of possible complete vspartial [...] -- 87 17 96 % -- 01/11/22 211 -- -- -- 91 16 94 % [...] Segs% Bands% Lymphs% Monos% Eos% Basos% 01/12/22 034 66.4 20.7 11.3 0.9 0.7 01/11/22 1430 [...] 311 Cultures Blood Culture Blood culture 01/09/22 110 No growth to date, culture reincubated [P] 01/09/22 110 No growth to date, culture reincubated [P] [...] [facility]. 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 [facility] Medical Intensive Care Unit Critical Care Progress Note Will Ralph 36 year old 151.43445 lbs MRN/Room: [id number]/CP3-139/1 Length of stay: 3 day(s) Summary 36M [...] was yellow x 1 day. While at [facility], patient was HDS, however noted with significant bru ising and edema of LUE. Reportedly, trauma surgery was consulted at [facility] and there was initially concern for compartment syndrome and fasciotomy was considered, but ultimately did not occur at the time. The trauma attending Dr. Du recommended orthopedic consultation upon arrival to the [facility] MICU. While at [facility] labs significant for indirect hyperbilirubinemia, and acute macrocytic anemia 6.9 requiring 1u pRBC and [address] Abd/Pelvis W/ Contrast showed liver cirrhosis and steatosis without CBD dilation. Received morphine, ceftriaxone, protonix, thiamine. Started on NS for rhabdo. Patient transferred to [facility] for tertiary center care. While in the [facility] MICU, Ortho following - request MR Zuniga elbow for assessment of possible complete vspartial [...] (PRECEDEX) IV infusion orderable 1.4 mcg/kg/hr (01/11/22 06) Tube feed 20 mL/hr at 01/09/22 1500 [...] No overt GIB. 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 EKG post shows sinus tachy Will check electrolytes and monitor. * Leon aSntana MD - 01/10/2022 2:24 PM EDT Images from the original note were not included. [Chart reviewed and note started on 01/10/22; patient seen and note completed on 01/11/22] MICU ATTENDING NOTE LEON SANTANA MD - PIN [id number] I saw and evaluated the patient. I [...] HEPATIC FAILURE. Additional findings and notation: Will Ralph is a 36 year old man with [...] Glu BUN Cr Ca Mg PO4 01/11/22115 2.0 01/11/22 011 133 3.4 101 25 [...] Director, Pulmonary, Critical Care and Sleep Medicine [facility] * Candido Lerner MD - 01/10/2022 12:31 PM EDT Images from the original note were not included. . Name: Will Ralph Encounter Date: 01/10/2022 PCP: No primary care [...] Normal ultrasound of the spleen. Assessment/Plan Will Ralph is a 36 year old male w/ [...] and 1u FFP and was transfered to [facility] for further management. On (01/08) PM pt [...] Candido Lerner MD Hematology- Oncology PGY-V Pager [phone] Associated attestation - Rd Weaver MD - [...] doppler - pending Assessment and Recommendations: Will Ralph is a 36 year old male with [...] with GI attending, Dr. Haley Gary MD ([id number]) and Ulysses Solomon MD. Primary team updated via [employer] secure chat. We will sign off but please don't hesitate to reach out with questions or concerns. Abbey Alvarez MD Gastroenterology Fellow Personal Pager [phone] GI Consult Pager (nights and weekends) [phone] * Francisco Marino MD - 01/10/2022 9:13 AM EDT MICU ATTENDING NOTE FRANCISCO MARINO MD - PIN [id number] I saw and evaluated the patient. I [...] ACUTE BLOOD LOSS ANEMIA, HEPATIC FAILURE, and SONAR TECHNICIAN FAILURE. Additional findings and notation: Will Ralph is a 36 year old male with PMH of EtOH dependence who presented with 2 days of L arm pain to [facility] ED. 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 Later the also had accidental chest wall trauma after he was working with [employer] and hit himself in the chest. Patient [...] M.D. Pulmonary, Critical Care and Sleep Medicine [facility] * Abhinav De La Vega DO - 01/10/2022 7:16 AM EDT Images from the original note were not included. [facility] Medical Intensive Care Unit Critical Care Progress Note Will Ralph 36 year old [id number] lbs MRN/Room: [id number]/CP3-139/1 Length of stay: 2 day(s) Summary 36M [...] was yellow x 1 day. While at [facility], patient was HDS, however noted with significant bru ising and edema of LUE. Reportedly, trauma surgery was consulted at [facility] and there was initially concern for compartment syndrome and fasciotomy was considered, but ultimately did not occur at the time. The trauma attending Dr. Du recommended orthopedic consultation upon arrival to the [facility] MICU. While at [facility] labs significant for indirect hyperbilirubinemia, and acute macrocytic anemia 6.9 requiring 1u pRBC and [address] Abd/Pelvis W/ Contrast showed liver cirrhosis and steatosis without CBD dilation. Received morphine, ceftriaxone, protonix, thiamine. Started on NS for rhabdo. Patient transferred to [facility] for tertiary center care. 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 DDx favors hemolysis - could be from [...] No overt GIB. s/p 1u pRBC from [facility], did not increment appropriately - only 6.9 [...] (deescalation of antibiotics): Ceftriaxone Social- Dad Rich [phone] and mom Code Status: Full Code Dispo: MICU Plan is preliminary until discussed with attending Abhinav De La Vega DO PGY-2 [phone] (click to text page) * Bang Jameson [...] ATTENDING NOTE FRANCISCO MARINO MD - PIN [id number] I saw and evaluated the patient. I [...] ACUTE BLOOD LOSS ANEMIA, HEPATIC FAILURE, and SONAR TECHNICIAN FAILURE. Additional findings and notation: Will Ralph is a 36 year old male with PMH of EtOH dependence who presented with 2 days of L arm pain to [facility] ED. 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 Pulmonary, Critical Care and Sleep Medicine [facility] * Nasrin Smith RN - 01/09/2022 [...] No BARRIERS TO PLAN OF CARE: No LIABILITY ANALYST RN R.Trino DAY SHIFT IRENA Hernandez * Codi Thurman LSW - 01/09/2022 9:47 AM EDT Admission Screen Consult: SW aware of social concern per ct tech screen for positive screen for low risk suicide and abuse. Pt is currently confused, restrained and unable to participate in conversation at this time. SW will follow up with pt to address as appropriate. SARAH Kelley Care Coordination Department * Ivy Chua MD - 01/09/2022 7:34 AM EDT Images from the original note were not included. [facility] Medical Intensive Care Unit Critical Care Progress Note Will Ralph 36 year old 149.6925 lbs MRN/Room: [id number]/CP3-139/1 Length of stay: 1 day(s) Summary 36M [...] skin was yellow x 1 day. At [facility], pt was HDS. Noted with significant bruising and edema of LUE. Reportedly, trauma surgery was consulted at [facility] and there was initially concern for compartment syndrome and fasciotomy was considered, but ultimately did not occur at the time. The trauma attending Dr. Du recommended orthopedic consultation upon arrival to the [facility] MICU. Labs significantfor indirect hyperbilirubinemia, acute macrocytic anemia 6.9. CT abd/pel with contrast showed livercirrhosis and steatosis; no CBD dilation. Received morphine, ceftriaxone, protonix, thiamine. Received 1u pRBC and 1u FFP at [facility]. Started on NS for rhabdo. Transferred to [facility] for tertiary center care. Ortho following - [...] 0.9 01/08/221824 63.0 17.5 16.9 1.9 0.7 01/08/22852 64.5 17.9 15.4 1.4 0.8 Basic Metabolic Panel Na K Cl CO2 Gap Glu BUN Cr Ca Mg PO4 01/09/22347 133 4.0 100 27 10 142 7 0.41 Comment: Grossly icteric; may falsely decrease creatinine 8.1 01/08/22852 1.7 01/08/22852 129 3.7 95 22 16 [...] may falsely lower creatinine 92 47 124 01/08/2253 6.4 2.9 2.40 11.1 Comment: Elevated bilirubin [...] INR #Suspected EtOH cirrhosis -hyperbili worsening since [facility]ino-[facility]. DDx favors hemolysis - could be from [...] for overt GIB -s/p 1u pRBC from [facility], did not increment appropriately - only 6.9 --> 7.2 after the unit of blood. -elev LDH, low haptoglobin c/w hemolysis. retic index is lower ([facility] 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 In the setting of this,will hold on additional transfusions as pt is HDS. Will consult hematology on further recommendations. -check cbc q12h -vitamin b12, folate --- wnl -iron studies --- not reliable given recent pRBC infusion at [facility] - Large bore PIV -transfuse Hb <7 -TSH elevated, but subsequent [...] (deescalation of antibiotics): ctx Social- dad Rich [phone] and mom Code Status: Full Code Dispo: MICU Staffed with attending exchange administrator Dr. Marino. Ivy Chua MD Internal Medicine PGY-3 * Bang Jameson RN - 01/09/2022 5:05 AM EDT Critical Hgb of 6.7 and Hct [address] Police Winston read back critical result. RN will continue to monitor. * Bang Jameson RN - 01/08/2022 9:40 PM EDT Block Chart Documentation for Emergent/Urgent Drug Titration Patient Name: Will Ralph Date: January 08, 2022 Medication used: Dexmedetomidine [...] n/a BARRIERS TO PLAN OF CARE: n/a LIABILITY ANALYST RN DAY SHIFT RN Chao * Lisa Macedo - 01/08/2022 1:33 PM EDT [facility] Spiritual Care Services Services provided for: Patient and Family Services initiated by: Staff Space Technologist Reason for services: Initial visit Narrative: Space Technologist knocked and entered patient's room to introduce self and share availability of spiritual care. Patient was sitting up in bed, awake and alert, visiting with his parents. Patient was polite and appreciative of visit but stated he had no spiritual care needs at this time. Interventions: Introduction of service Outcome: Patient aware of machine setter availability Plan of Care: Follow-up not anticipated Lisa Macedo MDiv Staff Space Technologist, (she/her/hers) Ext: [phone] Pager: [phone] documented in this [id number] Consult note* Keith Bolivar, OT - 01/16/2022 2:24 PM EDT OCCUPATIONAL THERAPY PROGRESS SUMMARY Patient seen from 2:13 PM to 2:21 PM on 10B unit for 8 minute treatment. Partial over lap with PT SUBJECTIVE: Patient Subjective/Goals Do you know when I will be able to go home? OBJECTIVE: Pain: 610 Pain Relief Interventions Implemented: Positioning Appearance: Finishing tx session with PT upon arrival, jaundice, (L) UE swelling noted, hep lock IV Behavior: Cognition: A&Ox4 UE Status: (R) UE WFL (L) UE impaired: WBAT however significant swelling Provided patient education on AROM of (L) UE Self Care: Assistance Level NA Dep Max Mod Min CG CS DS MN I Set-Up Cues Comment Feeding x Meal [...] With Patients permission ordered no equipment via [employer] Order. If any questions contact [facility] DME Provider at [phone]. 6 Clicks Daily Activity OT 01/16/2022 Help [...] Guard Assist/Supervision 4 - Non = Modified [place]/Independent ASSESSMENT: ASSESSMENT: Will Ralph is performing functional mobility and ADLS at [...] NA = Not Assessed, I = Independent, MN = Modified Independent, Sup = Supervised, Set [...] Dep Max Mod Min CG CS DS MN I Comment Roll to right sidelying x [...] With Patients permission ordered no equipment via [employer] Order. If any questions contact [facility] DME Provider at [phone]. 6 Clicks Basic Mobility PT 01/16/2022 Difficulty [...] completed by discharge from acute care): VIKY BARAKAT ALL GOALS MET 1. Patient will improve [...] NA = Not Assessed, I = Independent, MN = Modified Independent, Sup = Supervised, Set up = Physical Assistance for Set-up Only, Min = Minimal Assistance, Mod = Moderate Assistance, Max = Maximal assistance; Dep = Dependent; AROM = Active Range of Motion; PROM = Passive Range of Motion; MMT = Manual Muscle Test * Umesh Petar, PT - 01/15/2022 9:40 AM EDT PHYSICAL [...] Dep Max Mod Min CG CS DS MN I Comment Rolling x Supine<>sit x Sitting trial x Transfer x Sit<>stand x Without an assistive device. Standing trial x x2 minutes in unsupported static standing. Ambulation x 400 feet without an assistive device. Pt demonstrated step-through gait pattern with improved steadiness with continued practice. Stairs x 12 stairs with unilateral rail. Pt negotiated stairs with a [id number] pattern. Education: Instructed pt in roles of [...] Guard Assist/Supervision 4 - Non = Modified [place]/Independent Pt resting in recliner at end of [...] Clinical Specialist in Neurologic Physical Therapy Pager: [phone] AAROM = active assisted range of motion [...] % Nutrition Focused Physical Exam Muscle loss: Mandaen region: mild depression Clavicle region: visible but [...] ordered water TF intake 01/09 560 ml 01/10 1020 ml 01/11 1380 ml 01/12 1440 ml 01/13 1440 ml Est needs: current wt [id number] kcal/d 30-35 kcal/kg 95 g pro/d 1.5 [...] as mentation allows Mehreen Raza MS RD [facility] Pager [phone] () Dietitian corporate relations director ([id number]) pager: [phone] * Chioma Butler, OT - 01/14/2022 12:23 PM EDT Associated Order(s): [...] joint effusion. 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 Followed with Rheum at [facility] Open fracture of other and unspecified [...] wrapped, (R) hand bruising and dorsal edema, engineering drawings checker, Pulse Oximeter, IV, Flexiseal, male External Catheter [...] Dep Max Mod Min CG CS DS MN I Set-Up Comment Feeding x x +Corpak, [...] Dep Max Mod Min CG CS DS MN I Set-Up Comment Toilet Transfers x Anticipate [...] improves Cognition: Orientation: Oriented to person Place: [facility] Current Date: 01/16/85 Asked pt to state year: 2021 Follows Commands: one step commands, requires occasional repeat of directions and easily distracted Attention: difficulty with divided attention, easily distracted during task and difficulty with alternating attention Memory: Impaired - recalls incident 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 If any questions contact [facility] DME Provider at [phone]. 6 Clicks Daily Activity OT 01/14/2022 Help [...] Guard Assist/Supervision 4 - Non = Modified [place]/Independent ASSESSMENT: Recommend further therapy services in an [...] proper positioning techniques with set-up. PLAN: Will Ralph will be seen 1-3 times a week. 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 If any questions contact [facility] DME Provider at [phone]. 6 Clicks Basic Mobility PT 01/14/2022 Difficulty [...] independently. Can use assistive devices. ASSESSMENT: Will Ralph is a 36 year old yo male presented to OSH with LUE arm pain s/p fall admitted with decompensated cirrhosis, and close monitoring of suspected L biceps muscle rupture Diagnosis: hematoma, acute alcoholic hepatitis/Cirrhosis/Encp[ja;p[atju, suspected ETOH cirrhosis, indirect knywbknhgfchfdu3aue, jaundice, elevated INR, thrombocytopenia, hyponatremia, rabdomyolysis Pt [...] NA = Not Assessed, I = Independent, MN = Modified Independent, Sup = Supervised, Set [...] original note were not included. Name: Will Ralph Encounter Date: 01/09/2022 PCP: No primary care provider on file. Reason for consult: hemolytic anemia Attending Provider: Dr. Weaver Hematology/ Oncology Consult Note History of Present Illness Will Ralph is a 36 year old male w/ [...] and 1u FFP and was transfered to [facility]- ICU for further management. On (01/08) PM [...] B27 positive) 2003 Followed with Rheum at [facility] Open fracture of other and unspecified [...] intrahepatic biliary dilatation is noted. Assessment/Plan Will Ralph is a 36 year old male w/ [...] and 1u FFP and was transfered to [facility]- ICU for further management. On (01/08) PM [...] Candido Lerner MD Hematology- Oncology PGY-V Pager [phone] Associated attestation - Rd Weaver MD - [...] 30+ kcal/kg 95 g pro/d 1.5 g/kg 2010+ ml/d 30+ ml/kg Assessment: 36 yo male [...] and copper levels Mehreen Raza MS, RD [facility] Pager [phone] () Dietitian corporate relations director (7a-7p) pager: [phone] * Robert Allen MD - 01/08/2022 5:01 [...] the entire UE, causing him present to [facility] ED. While in the ED, the pt was noticed to be jaundiced and was found to be in acute liver failure. He was transferred to [facility] MICU for escalation of care. Ortho was [...] Mcmullen DO and will be discussed with corporate relations director ortho hand attending. Dr. Welch. Robert Allen MD HÉCTOR Orthopaedic Surgery, PGY 2 Pager [phone] After 5 pm and on weekends, please page the on-call resident ([phone]) with questions or concerns. 01/08/22 This consult was seen and staffed within 30 minutes of the initial consult. * Abbey Alvarez MD - 01/08/2022 9:22 AM EDT Associated Order(s): IP GASTROENTEROLOGY CONSULT Images from the original note were not included. Department of Gastroenterology and Hepatology Consult H&P Note GI Attending Physician: Dr. Ulysses Solomon MD Patient: Will Ralph Location: 3-139/1 Reason for Consult: GI bleed, hyperbilirubinemia HPI Will Ralph is a 36 year old male with history notable for EtOH use disorder, tobacco use disorder for whom gastroenterology was consulted for GI bleed and hyperbilirubinemia. Patient is admitted to MICU as a transfer from [facility] where he initially presented for [...] NA Colonoscopy NA ASSESSMENT AND RECOMMENDATIONS Will Ralph is a 36 year old male with [...] continue to follow with you. Personal Pager [phone] GI Consult Pager (nights and weekends) [phone] Abbey Alvarez MD Gastroenterology Fellow Division of Gastroenterology & Hepatology [facility] 01/08/22 Associated attestation - Ulysses Solomon [...] varices. Ulysses Solomon MD documented in this [id number] Hospital Discharge instructions* Instructions* Rosa Mensah RN [...] is right for you. Copyright Copyright 2020 [employer]. and its affiliates and/or licensors. All rights [...] you to see other specialists, such as [facility] hospitaltal health doctor, psychiatrist, social media developer, or alcohol counselor. Stay sober. Get involved [...] irritable. Where can I learn more? National Goodman of Alcohol Abuse and Alcoholism http://www.niaaa.nih.gov/alcohol-health/inrxujmd-veixdoy-iphczombmwu/alcohol-use -disorders National Health Service https://www.nhs.uk/conditions/alcohol-misuse/ Substance Abuse and Mental Health Services Administration https://www.sama.gov/find-help/national-helpline Last Reviewed Date 2017-12-02 Consumer Information Use [...] is right for you. Copyright Copyright 2020 [employer]. and its affiliates and/or licensors. All rights reserved. Patient Education Alcohol Use ? When Is Drinking a Problem? The Basics Written by the doctors and editors at [employer] How do I know if I am [...] counselor (such as a psychologist, social media developer, or psychiatrist) Take medicines Take part in [...] process is complete. This topic retrieved from [employer] on: Apr 04, 2020. Topic 10170 Version 9.0 Release: 28.4.6 - C28.294 2019 [employer] and/or its affiliates. All rights reserved. figure [...] and your health. Available at: http://rethinkingdrinking.niaaa.nih.gov. Graphic 06560 Version 1828.0 Consumer Information Use and Disclaimer [...] that is right for you.The use of [employer] content is governed by the [employer] Terms of Use. 2020 [employer]. All rights reserved. Copyright 2020 [employer] and/or its affiliates. All rights reserved. Patient [...] weights; are a rock climber, skier, gymnast, supervisor logging, or coal trammer; or do other sports What are the [...] playing sports. Where can I learn more? [employer] https://orthoinfo.aaos.org/en/diseases--conditions/vfqqvd-zycgbq-hotp-at-the-elb ow Last Reviewed Date 2018-06-01 Consumer Information [...] is right for you. Copyright Copyright 2020 [employer] and its affiliates and/or licensors. All rights [...] listed above. After business hours please call [facility] roller machine operator at and ask for the orthopeadicresident corporate relations director. For emergencies call [phone]. [facility] Upper Extremity and Hand Surgery Darci Allen, MD Enrique Ornelas, MD Poncho Devlin, MD Pool Villalobos, PILOT HIGHW[address] PATROL-UNIFIED COMMUNICATIONS ARCHITECT Josiane Muhammad, MD Ronen Welch, MD Saroj Rushing, MD Ulysses Roper, MD Stacy Romero, MD Ella Sawyer, PAOmarC MD Michael Bergeron, MD Татьяна Lorenz, PAOmarC Orthopaedic Surgery Nurse [...] is right for you. Copyright Copyright 2020 [employer]. and its affiliates and/or licensors. All rights [...] is right for you. Copyright Copyright 2020 [employer]. and its affiliates and/or licensors. All rights reserved. Patient Education Autoimmune Hemolytic Anemia The Basics Written by the doctors and editors at [employer] What is autoimmune hemolytic anemia? -- Autoimmune [...] process is complete. This topic retrieved from [employer] on: Apr 04, 2020. Topic 17447 Version 9.0 Release: 28.4.6 - C28.294 2019 [employer]. and/or its affiliates. All rights reserved. Consumer [...] that is right for you.The use of [employer] content is governed by the [employer] Terms of Use. 2020 [employer]. All rights reserved. Copyright 2020 [employer]. and/or its affiliates. All rights reserved. documented in this [id number] History and physical note* Francisco Marino MD - 01/08/2022 2:02 PM EDT MICU ATTENDING NOTE FRANCISCO MARINO MD - PIN [id number] I saw and evaluated the patient. I [...] HEPATIC FAILURE. Additional findings and notation: Will Ralph is a 36 year old male with PMH of EtOH dependence who presented with 2 days of L arm pain to [facility] ED. 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 Pulmonary, Critical Care and Sleep Medicine [facility] * Ivy Chua MD - 01/08/2022 8:50 AM EDT [facility] Medical Intensive Care Unit History and Physical Examination Will Ralph 36 year old 0 lbs MRN/Room: [id number]/CP3-139/1 Admit Date: 01/08/2022 : 1985 PCP Contact: No primary care provider on file. Code Status: Full Code Source of Information: patient, patient chart Reason for presentation: L arm pain and bruising Reason for admission: decompensated cirrhosis, close monitoring of suspected L biceps muscle rupture Reason for intensive care needs: no beds on stepdown History of Present Illness: Will Ralph is a 36 year old male with a PMH of EtOH use d/o who presents to the hospital with L arm pain, bruising, swelling. Pt seen and examined upon arrival to MICU at [facility]. Pt states he was working on the [...] of aleve every morning for pain. At [facility], presenting VS were 36.3C/HR 105/RR18/BP 145/68/ SpO2 98% on room air. Ht 170.18cm,wt 75kg. received morphine, ceftriaxone, protonix, thiamine. Received 1u pRBC and 1u FFP at [facility]. Started on NS @ 150cc/h. Reportedly, trauma surgery was consulted at [facility] and there was initially concern for compartment syndrome and fasciotomy was considered, but ultimately did not occur at the time. The trauma attending Dr. Du recommended orthopedic consultation upon arrival to the [facility] MICU. Labs at OSH Alk phos 167 [...] to Hospital (Active) Site Assessment WNL;Dressing intact 05/04/22 0706 Infusion Status Port #1 Capped;Positive blood [...] ---> and please see images uploaded to [employer]. Resident's Assessment/Plan: Will Ralph is a 36 year old male with [...] for overt GIB -s/p 1u pRBC from [facility], did not increment appropriately - only 6.9 --> 7.2 after the unit of blood. -check cbc q12h -vitamin b12, folate -iron studies -2 Large bore PIVs -transfuse Hb <7 -TSH #Thrombocytopenia -as sequelae of cirrhosis Musculoskeletal #LUE swelling 2/2 trauma -ortho consulted, appreciate recs: no fx on plain films. Ortho has ordered MR Nadia elbow -will f/u ortho recs -NPO for [...] Code Status: Full Code Staffed with attending exchange administrator Dr. Marino. Ivy Chua MD Internal Medicine PGY-3 documented in this [id number] Evaluation + Plan note Extracted from: Title:Admission H & P Author:Aldair Thorpe MD Date:01/07/22 36-year-old male with past medical history of alcohol abuse presented with left arm/hand swelling. Left upper extremity swelling and hematoma Acute anemia in setting of thrombocytopenia and cirrhosis Hemoglobin 6.9. Hemoglobin 16.3 in 08/2020 INR 1.6. Platelets 63 Trauma surgery evaluated the patient. No need for immediate surgery. Patient waiting for bed at [facility] Patient received vitamin K, 1 unit [...] tertiary center. Patient waiting for bed at [facility] Acute pancreatitis CT abdomen showed mild [...] made to ensure accuracy, however, inadvertently computerized ceramic tile setter mistakes may be present. Dr. Aldair Thorpe [...] on January 07, 2022 18:44:52 EDT . [facility]04-01-2020 Evaluation + Plan note Future Appointments Appointment Date:12/07/2023 08:00:00 AM Scheduled [facility] Echo (FT) Appointment Date:12/07/2023 09:00:00 AM Scheduled Provider: [facility] Type:CV EKG (FT) Appointment Date:12/11/2023 08:00:00 AM Scheduled Provider: [facility] Type:CV Echo Stress (FT) Appointment Date:01/27/2024 09:40:00 AM Scheduled Provider:Lisa Padilla Location:[facility] Appointment Type:FM Open Future Scheduled Tests Laboratory* HgbA1c 07/24/23 * Gevgk-5-Pwrpfeesckq 09/01/23 * Ceruloplasmin 09/01/23 * Antimitochondrial Antibody, [...] Marker 09/01/23 * Ammonia Level 07/24/23 * Ammonia Level 10/28/23 * Bilirubin Direct 09/01/23 * CBC w/ Auto Diff 07/24/23 * CBC w/ Auto Diff 10/28/23 * Comprehensive Metabolic Panel 07/24/23 * Comprehensive Metabolic Panel 09/01/23 * Comprehensive Metabolic Panel 10/28/23 * Ferritin 07/24/23 * Ferritin 09/01/23 * Folate Level 07/24/23 * GGT 07/24/23 * Iron Level 07/24/23 * Iron Level 09/01/23 * Lipase Level 07/24/23 * Lipid Panel 07/24/23 * Magnesium Level 07/24/23 * PT 07/24/23 * PT 09/01/23 * PT 10/28/23 * Phosphorus Level 07/24/23 * Reticulocyte Count 07/24/23 * Uric Acid 07/24/23 * Vitamin B12 Level 07/24/23 Radiology* EC Stress Echo Complete w/ Contrast 12/11/23 * Echo Transthoracic [facility]07[facility] Future Appointments Appointment Date:03/16/2023 11:00:00 AM Scheduled Provider:Teddy Hitchcock MD [facility] Appointment Type:WC [facility] Future Appointments Appointment Date:03/30/2023 11:00:00 AM Scheduled Provider:Teddy Hitchcock MD Location[facility] Appointment Type:WC Follow Up Visit (FT) [facility] + Plan note Future Appointments Appointment Date:04/16/2023 12:00:00 PM Scheduled Provider: Location:.[facility] Appointment Type:US Duplex Procedures (FT) Appointment Date:04/23/2023 10:15:00 AM Scheduled Provider:Teddy Hitchcock MD Location[facility] Appointment Type:WC Follow Up Visit (FT) Future Scheduled Tests Radiology* US PVR Lower EXT Complete Bilat 04/16/23 [facility] Future Appointments Appointment Date:04/23/2023 10:15:00 AM Scheduled Provider:Teddy Hitchcock MD [facility] Appointment Type:WC Follow Up Visit (FT) [facility] Future Appointments Appointment Date:04/30/2023 08:30:00 AM Scheduled Provider: [facility] Appointment Type:WC Assessment (FT) Appointment Date:05/07/2023 11:30:00 AM Scheduled Provider:Teddy Hitchcock MD [facility] Appointment Type:WC Follow Up Visit (FT) [facility] Future Appointments Appointment Date:05/07/2023 11:30:00 AM Scheduled Provider:Teddy Hitchcock MD [facility] Appointment Type:WC Follow Up Visit (FT) [facility] Future Appointments Appointment Date:05/14/2023 07:00:00 AM Scheduled Provider:Teddy Hitchcock MD [facility] Appointment Type:WC [facility] Future Appointments Appointment Date:05/21/2023 11:15:00 AM Scheduled Provider:Teddy Hitchcock MD [facility] Appointment Type:WC Follow Up Visit (FT) [facility] Future Appointments Appointment Date:06/04/2023 10:45:00 AM Scheduled Provider:Teddy Hitchcock MD [facility] Appointment Type:WC Follow Up Visit (FT) [facility] Future Appointments Appointment Date:06/11/2023 01:00:00 PM Scheduled Provider: [facility] Appointment Type:WC Assessment (FT) Appointment Date:06/18/2023 10:00:00 AM Scheduled Provider:Teddy Hitchcock MD [facility] Appointment Type:WC [facility] Future Appointments Appointment Date:06/25/2023 11:00:00 AM Scheduled Provider:Teddy Hitchcock MD [facility] Appointment Type:WC Follow Up Visit (FT) [facility] Future Appointments Appointment Date:07/06/2023 10:30:00 AM Scheduled Provider:Teddy Hitchcock MD [facility] Appointment Type:WC [facility] (FT) [facility] Future Appointments Appointment Date:07/16/2023 09:30:00 AM Scheduled Provider:Teddy Hitchcock MD [facility] Appointment Type:WC [facility] (FT) [facility] Future Appointments Appointment Date:07/23/2023 09:00:00 AM Scheduled Provider:Teddy Hitchcock MD [facility] Type:WC Follow Up Visit (FT) Appointment Date:07/24/2023 07:40:00 AM Scheduled Provider:Lisa Padilla Location:[facility] Appointment Type:FM New Patient - Adult [facility] Future Appointments Appointment Date:07/24/2023 07:40:00 AM Scheduled Provider:Lisa Padilla Location:[facility] Appointment Type:FM New Patient - Adult Appointment Date:08/06/2023 09:30:00 AM Scheduled Provider:Teddy Hitchcock MD [facility] Appointment Type:WC [facility] (FT) [facility] Future Appointments Appointment Date:08/06/2023 09:30:00 AM Scheduled Provider:Teddy Hitchcock MD [facility] Appointment Type:WC Follow Up Visit (FT) Appointment Date:08/21/2023 07:20:00 AM Scheduled Provider:Lisa Padilla Location:[facility] Appointment Type: Open Future Scheduled Tests [...] Acid 07/24/23 * Vitamin B12 Level 07/24/23 [facility] Primary Care Evaluation + Plan note Future Appointments Appointment Date:08/21/2023 07:20:00 AM Scheduled Provider:Lisa Padilla Location:[facility] Appointment Type: Open Appointment Date:09/01/2023 12:00:00 PM Scheduled Provider:Mario Evans MD Location:[facility] Appointment Type:[facility] New Patient Future Scheduled Tests Laboratory* HgbA1c [...] Acid 07/24/23 * Vitamin B12 Level 07/24/23 [facility] Future App[facility]ments Appointment Date:09/01/2023 12:00:00 PM Scheduled Provider:Mario Evans MD Location:[facility] Appointment Type:[facility] New Patient Appointment Date:10/28/2023 09:00:00 AM Scheduled Provider:Lisa Padilla Location:[facility] Appointment Type:[facility] Future Scheduled Tests Laboratory* HgbA1c 07/24/23 [...] Acid 07/24/23 * Vitamin B12 Level 07/24/23 [facility] Primary Care Evaluation + Plan note Future Appointments Appointment Date:09/03/2023 09:00:00 AM Scheduled Provider: [facility] App[facility] Type:US Abdominal/Pelvis () Appointment Date:10/28/2023 09:00:00 AM Scheduled Provider:Lisa Padilla Location:[facility] Appointment Type: Open Future Scheduled Tests Laboratory* HgbA1c 07/24/23 * Zslkz-2-Jjpdrqvsgim 09/01/23 * Ceruloplasmin 09/01/23 * Antimitochondrial Antibody, [...] B12 Level 07/24/23 Radiology* US Liver 09/03/23 [facility] Evaluation + Plan note Future Appointments Appointment Date:10/28/2023 09:00:00 AM Scheduled Provider:Lisa Padilla Location:[facility] Appointment Type: Open Future Scheduled Tests Laboratory* HgbA1c 07/24/23 * Bpyps-7-Khsmyxcjpms 09/01/23 * Ceruloplasmin 09/01/23 * Antimitochondrial Antibody, [...] Acid 07/24/23 * Vitamin B12 Level 07/24/23 [facility] Future Appointments Appointment Date:09/30/2023 10:15:00 AM Scheduled Provider: Alvino:[facility] Appointment Type:Surgery FT Appointment Date:10/01/2023 11:20:00 AM Scheduled Provider:Lisa Padilla Location:[facility] Appointment Type: Open Appointment Date:10/28/2023 09:00:00 AM Scheduled Provider:Lisa Padilla Location:[facility] Appointment Type: Open Future Scheduled Tests Laboratory* HgbA1c 07/24/23 * Amtak-0-Fqasxqadzad 09/01/23 * Ceruloplasmin 09/01/23 * Antimitochondrial Antibody, [...] Acid 07/24/23 * Vitamin B12 Level 07/24/23 [facility] Evaluation + Plan note Future Appointments Appointment Date:11/11/2023 03:00:00 PM Scheduled Provider: Location:[facility] Appointment Type:Surgery FT Appointment Date:11/13/2023 01:00:00 PM Scheduled Provider:Barby MULTANI, [place] [facility] [place] Appoint[facility] Type:Cardiology New Patient (FT) Appointment Date:12/07/2023 08:00:00 AM Scheduled Provider: Location:[facility] Appointment Type:CV Echo (FT) Appointment Date:12/07/2023 09:00:00 AM Scheduled Provider: [facility] Type:CV EKG (FT) Appointment Date:12/07/2023 09:30:00 AM Scheduled Provider: [facility] App[facility] Type:CV Echo Stress (FT) Appointment Date:01/27/2024 09:40:00 AM Scheduled Provider:Lisa Padilla Location:[facility] Appointment Type:FM Open Future Scheduled Tests Laboratory* HgbA1c 07/24/23 * Dbbra-9-Gshavstcqdv 09/01/23 * Ceruloplasmin 09/01/23 * Antimitochondrial Antibody, [...] Marker 09/01/23 * Ammonia Level 07/24/23 * Ammonia Level 10/28/23 * Bilirubin Direct 09/01/23 * CBC w/ Auto Diff 07/24/23 * CBC w/ Auto Diff 10/28/23 * Comprehensive Metabolic Panel 07/24/23 * Comprehensive Metabolic Panel 09/01/23 * Comprehensive Metabolic Panel 10/28/23 * Ferritin 07/24/23 * Ferritin 09/01/23 * Folate Level 07/24/23 * GGT 07/24/23 * Iron Level 07/24/23 * Iron Level 09/01/23 * Lipase Level 07/24/23 * Lipid Panel 07/24/23 * Magnesium Level 07/24/23 * PT 07/24/23 * PT 09/01/23 * PT 10/28/23 * Phosphorus Level 07/24/23 * Reticulocyte Count 07/24/23 * Uric Acid 07/24/23 * Vitamin B12 Level 07/24/23 Radiology* EC Stress Echo Complete w/ Contrast 12/07/23 * Echo Transthoracic Complete 12/07/23 [facility] Primary Care Evaluation + Plan note Future Appointments Appointment Date:01/27/2024 09:40:00 AM Scheduled Provider:Lisa Padilla Location:[facility] Appointment Type:FM Open Appointment Date:05/12/2024 03:15:00 PM Scheduled Provider:Mario Evans MD Location:[facility] [facility] Appointment Type:BADH Follow Up Future Scheduled Tests Laboratory* HgbA1c 07/24/23 * Fpqio-0-Ittbqwsmkin 09/01/23 * Ceruloplasmin 09/01/23 * Antimitochondrial Antibody, [...] Marker 09/01/23 * Ammonia Level 07/24/23 * Ammonia Level 10/28/23 * Bilirubin Direct 09/01/23 * CBC w/ Auto Diff 07/24/23 * CBC w/ Auto Diff 10/28/23 * Comprehensive Metabolic Panel 07/24/23 * Comprehensive Metabolic Panel 09/01/23 * Comprehensive Metabolic Panel 10/28/23 * Ferritin 07/24/23 * Ferritin 09/01/23 * Folate Level 07/24/23 * GGT 07/24/23 * Iron Level 07/24/23 * Iron Level 09/01/23 * Lipase Level 07/24/23 * Lipid Panel 07/24/23 * Magnesium Level 07/24/23 * PT 07/24/23 * PT 09/01/23 * PT 10/28/23 * Phosphorus Level 07/24/23 * Reticulocyte Count 07/24/23 * Uric Acid 07/24/23 * Vitamin B12 Level 07/24/23 [facility]ments Appointment Date:12/23/2023 10:00:00 AM Scheduled Provider:Lisa Padilla Location:[facility] Appointment Type: Hospital Follow Up w/TCM Appointment Date:12/25/2023 11:15:00 AM Scheduled Provider:Marc Liz MD Location[facility] Appointment Type:Cardiology New Patient (FT) Appointment Date:01/27/2024 09:40:00 AM Scheduled Provider:Lisa Padilla Location:[facility] Appointment Type: Open Appointment Date:05/12/2024 03:15:00 PM Scheduled Provider:Mario Evans MD Location:[facility] Appointment Type:[facility] Follow Up Diagnostic Tests Pending * Acute Hepatitis A B C Panel 12/21/23 * HCV Antibody RFX to Quant PCR 12/21/23 * HIV Screen 4th Generation wRfx 12/21/23 Future Scheduled Tests Laboratory* Rblfa-9-Iouiqwnijrt 09/01/23 * Ceruloplasmin 09/01/23 * Antimitochondrial Antibody, Quantitative 09/01/23 * Smooth Muscle Antibody Screen 09/01/23 * GEOVANNA w/Reflex if POS 09/01/23 * IgG, Quant. 09/01/23 * O & P Exam, Routine 12/16/23 * TIBC Calculated 09/01/23 * Acute Hepatitis A B C Panel 09/01/23 * Alpha Fetoprotein Tumor Marker 09/01/23 * Ammonia Level 07/24/23 * Bilirubin Direct 09/01/23 * CBC w/ Auto Diff 07/24/23 * Comprehensive Metabolic Panel 07/24/23 * Comprehensive Metabolic Panel 09/01/23 * Ferritin 09/01/23 * Iron Level 09/01/23 * Lipase Level 07/24/23 * Lipid Panel 07/24/23 * PT 07/24/23 * PT 09/01/23 [facility] App[facility]ments Appointment Date:12/31/2023 08:00:00 AM Scheduled Provider: Location:.[facility] Appointment Type:US Abdominal/Pelvis (FT) Appointment Date:01/06/2024 08:15:00 AM Scheduled Provider:Marc Liz MD [facility] Type:Cardiology New Patient (FT) Appointment Date:01/27/2024 09:40:00 AM Scheduled Provider:Lisa Padilla Location:[facility] Appointment Type:FM Open Appointment Date:05/12/2024 03:15:00 PM Scheduled Provider:Mario Evans MD Location:[facility] Appointment Type[facility] Follow Up Future Scheduled Tests Laboratory* Biewn-9-Ixcxjgsjvox 09/01/23 * Ceruloplasmin 09/01/23 * Antimitochondrial Antibody, Quantitative 09/01/23 * Smooth Muscle Antibody Screen 09/01/23 * GEOVANNA w/Reflex if POS 09/01/23 * IgG, Quant. 09/01/23 * O & P Exam, Routine 12/16/23 * TIBC Calculated 09/01/23 * Acute Hepatitis A B C Panel 09/01/23 * Alpha Fetoprotein Tumor Marker 09/01/23 * Ammonia Level 07/24/23 * Bilirubin Direct 09/01/23 * CBC w/ Auto Diff 07/24/23 * Comprehensive Metabolic Panel 07/24/23 * Comprehensive Metabolic Panel 09/01/23 * Ferritin 09/01/23 * Iron Level 09/01/23 * Lipase Level 07/24/23 * Lipid Panel 07/24/23 * PT 07/24/23 * PT 09/01/23 Radiology* US Abdomen, Limited 12/31/23 [facility] Evaluation + Plan note Future Appointments Appointment Date:01/06/2024 08:15:00 AM Scheduled Provider:Marc Liz MD [facility] Type:Cardiology New Patient (FT) Appointment Date:01/27/2024 09:40:00 AM Scheduled Provider:Lisa Padilla Location:[facility] Appointment Type:FM Open Appointment Date:05/12/2024 03:15:00 PM Scheduled Provider:Mario Evans MD Location:[facility] [place] [facility] Appointment Type:[facility] Follow Up Future Scheduled Tests Laboratory* Pswgn-5-Nozzunkpzgk 09/01/23 * Ceruloplasmin 09/01/23 * Antimitochondrial Antibody, Quantitative 09/01/23 * Smooth Muscle Antibody Screen 09/01/23 * GEOVANNA w/Reflex if POS 09/01/23 * IgG, Quant. 09/01/23 * O & P Exam, Routine 12/16/23 * TIBC Calculated 09/01/23 * Acute Hepatitis A B C Panel 09/01/23 * Alpha Fetoprotein Tumor Marker 09/01/23 * Ammonia Level 07/24/23 * Bilirubin Direct 09/01/23 * CBC w/ Auto Diff 07/24/23 * Comprehensive Metabolic Panel 07/24/23 * Comprehensive Metabolic Panel 09/01/23 * Ferritin 09/01/23 * Iron Level 09/01/23 * Lipase Level 07/24/23 * Lipid Panel 07/24/23 * PT 07/24/23 * PT 09/01/23 [facility] Appointments Appointment Date:02/26/2024 08:15:00 AM Scheduled Provider:Iglesia Dior MD [facility] Type:Cardiology New Patient (FT) Appointment Date:04/29/2024 09:00:00 AM Scheduled Provider:Lisa Padilla Location:[facility] Appointment Type: Open Appointment Date:05/12/2024 03:15:00 PM Scheduled Provider:Mario Evans MD Location:[facility] [place] [facility] Appointment [facility] Follow Up Future Scheduled Tests Laboratory* Awgje-2-Koadlwghemp 09/01/23 * Ceruloplasmin 09/01/23 * Antimitochondrial Antibody, Quantitative 09/01/23 * Smooth Muscle Antibody Screen 09/01/23 * GEOVANNA w/Reflex if POS 09/01/23 * IgG, Quant. 09/01/23 * O & P Exam, Routine 12/16/23 * TIBC Calculated 09/01/23 * Acute Hepatitis A B C Panel 09/01/23 * Alpha Fetoprotein Tumor Marker 09/01/23 * Ammonia Level 07/24/23 * Bilirubin Direct 09/01/23 * CBC w/ Auto Diff 07/24/23 * Comprehensive Metabolic Panel 07/24/23 * Comprehensive Metabolic Panel 09/01/23 * Ferritin 09/01/23 * Iron Level 09/01/23 * Lipase Level 07/24/23 * Lipid Panel 07/24/23 * PT 07/24/23 * PT 09/01/23 [facility] Evaluation + Plan note Future Appointments Appointment Date:02/22/2024 09:15:00 AM Scheduled Provider:Shalonda MULTANI, Marc Love Location[facility] Appointment Type:Cardiology New Patient (FT) Appointment Date:02/25/2024 09:00:00 AM Scheduled Provider:Ella Barahona [facility] Type:ONC Office Visit New 44 (FT) Appointment Date:04/29/2024 09:00:00 AM Scheduled Provider:Lisa Padilla Location:[facility] Appointment Type:FM Open Appointment Date:05/12/2024 03:15:00 PM Scheduled Provider:Mario Evans MD Location:[facility] [place] [facility] Appointment Type:BADH Follow Up Future Scheduled Tests Laboratory* Nsvrf-3-Iibyzibtlox 09/01/23 * Ceruloplasmin 09/01/23 * Antimitochondrial Antibody, Quantitative 09/01/23 * Smooth Muscle Antibody Screen 09/01/23 * GEOVANNA w/Reflex if POS 09/01/23 * IgG, Quant. 09/01/23 * O & P Exam, Routine 12/16/23 * TIBC Calculated 09/01/23 * Acute Hepatitis A B C Panel 09/01/23 * Alpha Fetoprotein Tumor Marker 09/01/23 * Ammonia Level 07/24/23 * Bilirubin Direct 09/01/23 * CBC w/ Auto Diff 07/24/23 * Comprehensive Metabolic Panel 07/24/23 * Comprehensive Metabolic Panel 09/01/23 * Ferritin 09/01/23 * Iron Level 09/01/23 * Lipase Level 07/24/23 * Lipid Panel 07/24/23 * PT 07/24/23 * PT 09/01/23 [facility] Future Appointments Appointment Date:03/14/2024 09:20:00 AM Scheduled Provider:Ella Barahona [facility] Type:ONC Office Visit 20 (FT) Appointment Date:03/16/2024 08:15:00 AM Scheduled Provider:Marc Liz MD [facility] Type:Cardiology New Patient (FT) Appointment Date:04/29/2024 09:00:00 AM Scheduled Provider:Lisa Padilla Location:[facility] Appointment Type: Open Appointment Date:05/12/2024 03:15:00 PM Scheduled Provider:Mario Evans MD Location:[facility] [facility]ment [facility] Follow Up Future Scheduled Tests Laboratory* Voazh-7-Fjrgicbtsjv 09/01/23 * Ceruloplasmin 09/01/23 * Antimitochondrial Antibody, Quantitative 09/01/23 * Smooth Muscle Antibody Screen 09/01/23 * GEOVANNA w/Reflex if POS 09/01/23 * IgG, Quant. 09/01/23 * O & P Exam, Routine 12/16/23 * TIBC Calculated 09/01/23 * Acute Hepatitis A B C Panel 09/01/23 * Alpha Fetoprotein Tumor Marker 09/01/23 * Ammonia Level 07/24/23 * Bilirubin Direct 09/01/23 * CBC w/ Auto Diff 07/24/23 * Comprehensive Metabolic Panel 07/24/23 * Comprehensive Metabolic Panel 09/01/23 * Ferritin 09/01/23 * Iron Level 09/01/23 * Lipase Level 07/24/23 * Lipid Panel 07/24/23 * PT 07/24/23 * PT 09/01/23 [facility] App[facility]ments Appointment Date:03/14/2024 09:20:00 AM Scheduled Provider:Ella Barahona [facility] Type:ONC Office Visit 20 (FT) Appointment Date:03/17/2024 02:15:00 PM Scheduled Provider:Marc Liz MD [facility] Type:Cardiology New Patient (FT) Appointment Date:04/29/2024 09:00:00 AM Scheduled Provider:Lisa Padilla Location:[facility] Appointment Type: Open Appointment Date:05/12/2024 03:15:00 PM Scheduled Provider:Mario Evans MD Location:[facility] [facility]ment [facility] Follow Up Diagnostic Tests Pending * Haptoglobin 03/02/24 * Copper Level 03/02/24 Future Scheduled Tests Laboratory* Klkri-5-Wzdtdzmfwpj 09/01/23 * Ceruloplasmin 09/01/23 * Antimitochondrial Antibody, Quantitative 09/01/23 * Smooth Muscle Antibody Screen 09/01/23 * GEOVANNA w/Reflex if POS 09/01/23 * IgG, Quant. 09/01/23 * O & P Exam, Routine 12/16/23 * TIBC Calculated 09/01/23 * Acute Hepatitis A B C Panel 09/01/23 * Alpha Fetoprotein Tumor Marker 09/01/23 * Ammonia Level 07/24/23 * Bilirubin Direct 09/01/23 * CBC w/ Auto Diff 07/24/23 * Comprehensive Metabolic Panel 07/24/23 * Comprehensive Metabolic Panel 09/01/23 * Ferritin 09/01/23 * Iron Level 09/01/23 * Lipase Level 07/24/23 * Lipid Panel 07/24/23 * PT 07/24/23 * PT 09/01/23 [facility] Future Appointments Appointment Date:03/17/2024 02:15:00 PM Scheduled Provider:Marc Liz MD [facility] Type:Cardiology New Patient (FT) Appointment Date:04/13/2024 09:00:00 AM Scheduled Provider:Kavon Lu DO [facility] Type:ONC Office Visit 20 (FT) Appointment Date:04/29/2024 09:00:00 AM Scheduled Provider:Lisa Padilla Location:[facility] Appointment Type: Open Appointment Date:05/12/2024 03:15:00 PM Scheduled Provider:Mario Evans MD Location:[facility] Follow Up Future Scheduled Tests Laboratory* Ypile-2-Pqvxfcyoktm 09/01/23 * Ceruloplasmin 09/01/23 * Antimitochondrial Antibody, Quantitative 09/01/23 * Smooth Muscle Antibody Screen 09/01/23 * GEOVANNA w/Reflex if POS 09/01/23 * IgG, Quant. 09/01/23 * O & P Exam, Routine 12/16/23 * TIBC Calculated 09/01/23 * Acute Hepatitis A B C Panel 09/01/23 * Alpha Fetoprotein Tumor Marker 09/01/23 * Ammonia Level 07/24/23 * Bilirubin Direct 09/01/23 * CBC w/ Auto Diff 04/04/24 * CBC w/ Auto Diff 07/24/23 * Comprehensive Metabolic Panel 04/04/24 * Comprehensive Metabolic Panel 07/24/23 * Comprehensive Metabolic Panel 09/01/23 * Ferritin 09/01/23 * Iron Level 09/01/23 * Lactate Dehydrogenase 04/04/24 * Lipase Level 07/24/23 * Lipid Panel 07/24/23 * PT 07/24/23 * PT 09/01/23 * Reticulocyte Count 04/04/24 [facility] Future Appointments Appointment Date:04/13/2024 09:00:00 AM Scheduled Provider:Kavon Lu DO Location:.ONCOLOGY Appointment Type:ONC Office Visit 20 (FT) Appointment Date:04/29/2024 09:00:00 AM Scheduled Provider:Lisa Padilla Location:[facility] Appointment Type:FM Open Appointment Date:05/12/2024 03:15:00 PM Scheduled Provider:Nathan MULTANI, Mario Xiong Location:[facility] Appointment Type:BADH Follow Up Future Scheduled Tests Laboratory* Ymcyz-4-Rgnjjdmedgh 09/01/23 * Ceruloplasmin 09/01/23 * Antimitochondrial Antibody, Quantitative 09/01/23 * Smooth Muscle Antibody Screen 09/01/23 * GEOVANNA w/Reflex if POS 09/01/23 * IgG, Quant. 09/01/23 * O & P Exam, Routine 12/16/23 * TIBC Calculated 09/01/23 * Acute Hepatitis A B C Panel 09/01/23 * Alpha Fetoprotein Tumor Marker 09/01/23 * Ammonia Level 07/24/23 * Bilirubin Direct 09/01/23 * CBC w/ Auto Diff 04/04/24 * CBC w/ Auto Diff 07/24/23 * Comprehensive Metabolic Panel 04/04/24 * Comprehensive Metabolic Panel 07/24/23 * Comprehensive Metabolic Panel 09/01/23 * Ferritin 09/01/23 * Iron Level 09/01/23 * Lactate Dehydrogenase 04/04/24 * Lipase Level 07/24/23 * Lipid Panel 07/24/23 * PT 07/24/23 * PT 09/01/23 * Reticulocyte Count 04/04/24 [facility]* Diagnosis Hemolytic anemia (HCC)- Primary Acquired [...] [facility] Gallstones- Primary Calculus of gallbladder without mention of cholecystitis or obstruction [facility] Diagnosis Coagulation defect (HCC)- Primary Other and unspecified coagulation defects Alcoholic fatty liver Hyperbilirubinemia Disorders of bilirubin excretion Alcoholic hepatitis, unspecified whether ascites present (HCC) [facility] N[facility]ative - Reported* Type Description Date Medical History anxiety Medical History LIVER ISSUES Surgical History fx jaw Hospitalization History LIVER ISSUES 2021 [employer] Other Hospital course Narrative No data available for this section [facility] Discharge instructions No data available for this section [facility] Discharge instructions* Attachments The following attachments cannot be sent through Care Everywhere. * Moderate Sedation in Adults Discharge Instructions (Icelandic) * Liver Biopsy Discharge Instructions (Icelandic) [facility] No data available for this section [facility])* Tests/Procedures (Routine) - Authorized Specialty Diagnoses / Procedures Referred By Contact Referred To Contact Cardiovascular Testing Diagnoses Bilateral swelling of feet and ankles Tanvir Black MD [address] [place] [address] [facility] CARD NON INVASIVE [address] [place] [address] Referral ID Status Reason Start Date Expiration Date V isits Requested Visits Authorized [id number] Authorized 03/13/2022 03/13/2023 1 1 Scheduling Instructions [...] call the [facility] at [phone] ([phone]) if you are unable to keep [...] SpO2 100 %. [email or web address] for [facility] Narrative* Auth/Cert Specialty Diagnoses / Procedures Referred By Contac t Referred To Contact Case Management Diagnoses Acute Liver Failure Procedures [facility] [employer] [facility] [address] [place] [address] Phone: [phone] [facility] [address] [place] [address] Phone: [phone] Referral ID Status Reason Start Date Expiration Date Visits Re quested Visits Authorized [id number] 3 3 [facility] N[facility]* Tests/Procedures (Routine) - Closed Specialty Diagnoses / Procedures Referred By Contact Referred To Contact Cardiovascular Testing Diagnoses Bilateral swelling of feet and ankles Tanvir Black MD [address] [place] [address] [place] [address] S CARD NON INVASIVE [address] [place] [address] Referral ID Status Reason Start Date Expiration Date Visits Re quested Visits Authorized [id number] Closed 03/13/2022 03/13/2023 1 1 [facility] Reason for Referral Specialty Diagnoses / Procedures Referred By Contac t Referred To Contact Diagnoses Alcoholic fatty liver Hyperbilirubinemia Alcoholic hepatitis, unspecified whether ascites present (HCC) Procedures XA HEPATIC VENOGRAM W/ HEMODYN (CHRISTIANO) Marcello Ibanez MD [address] [place] [address] S INTERVENTIONAL RAD [address] [place] [address] Referral ID Status Reason Start Date Expiration Date Visits Re quested Visits Authorized [id number] Closed 01/20/2023 01/20/2024 1 1 Specialty Diagnoses / Procedures Referred By Contac t Referred To Contact Radiology Diagnoses Alcoholic cirrhosis of liver without ascites (HCC) Procedures XA TRANSJUGULAR LIVER BIOPSY (CHRISTIANO) XA INTERVENTIONAL RADIOLOGY PROCEDURE SERVICE Marcello Ibanez MD [address] [place] [address] S ULTRASOUND [address] [place] [address] Referral ID Status Reason Start Date Expiration Date V isits Requested Visits Authorized [id number] Authorized 10/27/2022 10/27/2023 1 1 Specialty Diagnoses / Procedures Referred By Contac t Referred To Contact Radiology Diagnoses Rib pain Procedures XR RIBS LT UNILAT W/PA CHEST Theo Burks MD [address] [place] [address] [place] [address] [facility] DIAGNOSTIC RADIOLOGY [address] [place] [address] [place] [address] Referral ID Status Reason Start Date Expiration Date V isits Requested Visits Authorized [id number] Authorized 12/15/2022 12/15/2023 1 1 Specialty Diagnoses / Procedures Referred By Contac t Referred To Contact Diagnoses Rib Theo De La Cruz MD [address] [place] [address] [place] [address] Referral ID Status Reason Start Date Expiration Date V isits Requested Visits Authorized [id number] Pending Review 3 3 Specialty Diagnoses / Procedures Referred By Contac t Referred To Contact Diagnoses Iron deficiency anemia, unspecified iron deficiency anemia type Alcoholic cirrhosis, unspecified whether ascites present (HCC) Alcoholic cirrhosis of liver without ascites (HCC) Tanvir Black MD [address] [place] [address] [place] [address] Referral ID Status Reason Start Date Expiration Date Visits Re quested Visits Authorized [id number] Closed 3 3 Specialty Diagnoses / Procedures Referred By Contac t Referred To Contact Radiology Diagnoses Alcoholic cirrhosis of liver without ascites (HCC) Procedures XA TRANSJUGULAR LIVER BIOPSY (CHRISTIANO) XA INTERVENTIONAL RADIOLOGY PROCEDURE SERVICE Marcello Ibanez MD [address] [place] [address] [facility] ULTRASOUND [address] [place] [address] Referral ID Status Reason Start Date Expiration Date V isits Requested Visits Authorized [id number] Authorized 10/27/2022 10/27/2023 1 1 Specialty Diagnoses / Procedures Referred By Contac t Referred To Contact Diagnoses Urinary tract infection without hematuria, site unspecified Leg swelling Tanvir Black MD [address] [place] [address] [place] [address] [facility] [address] [place] [address] Referral ID Status Reason Start Date Expiration Date V isits Requested Visits Authorized [id number] Authorized 08/21/2022 02/17/2023 3 3 Scheduling Instructions Please call Internal Medicine at to schedule an appointment. Specialty Diagnoses / Procedures Referred By Contac t Referred To Contact Radiology Diagnoses Lower extremity edema Procedures US LEG RIGHT VENOUS + DOPPLER Tanvir Black MD [address] [place] [address] [place] [address] S ULTRASOUND [address] [place] [address] Referral ID Status Reason Start Date Expiration Date Visits Re quested Visits Authorized [id number] Closed 08/14/2022 08/14/2023 1 1 Specialty Diagnoses / Procedures Referred By Contac t Referred To Contact Radiology Diagnoses Iron deficiency anemia, unspecified iron deficiency anemia type Alcoholic cirrhosis, unspecified whether ascites present (HCC) Procedures US HEP PORT SPLEN VEIN + DOPPLER Saskia Madison, LIBAN-DAYAMI [address] [place] [address] [place] [address] S ULTRASOUND [address] [place] [address] Referral ID Status Reason Start Date Expiration Date V isits Requested Visits Authorized [id number] Authorized 08/14/2022 08/14/2023 1 1 Specialty Diagnoses / Procedures Referred By Contac t Referred To Contact Radiology Diagnoses Iron deficiency anemia, unspecified iron deficiency anemia type Alcoholic cirrhosis, unspecified whether ascites present (HCC) Procedures US LIVER/GALL BLADDER/PANCREAS Saskia Madison, [address] PATROL-DAYAMI [address] [place] [address] [place] [address] S ULTRASOUND [address] [place] [address] Referral ID Status Reason Start Date Expiration Date V isits Requested Visits Authorized [id number] Authorized 08/14/2022 08/14/2023 1 1 Specialty Diagnoses / Procedures Referred By Contac t Referred To Contact Afua Umanzor MD [address] [place] [address] Referral ID Status Reason Start Date Expiration Date V isits Requested Visits Authorized [id number] Pending Review 3 3 Referral ID Status Reason Start Date Expiration Date V isits Requested Visits Authorized [id number] Pending Review 3 3 Specialty Diagnoses / Procedures Referred By Taya hope Referred To Contact Gastroenterology Diagnoses Alcoholic cirrhosis of liver without ascites (HCC) Afua Umanzor MD [address] [place] [address] [facility] LIVER [address] [place] [address] Referral ID Status Reason Start Date Expiration Date V isits Requested Visits Authorized [id number] Authorized 01/17/2022 01/17/2023 3 3 Scheduling Instructions [...] antibody (HCC) Thrombocytopenia (HCC) Afua Umanzor MD [address] [place] [address] [facility] HEMATOLOGY [address] [place] [address] Referral ID Status Reason Start Date Expiration Date V isits Requested Visits Authorized [id number] Authorized 01/17/2022 01/17/2023 3 3 Scheduling Instructions Please call the [facility] at [phone] to schedule an appointment if one was not made for you today. Specialty Diagnoses / Procedures Referred By Taya hope Referred To Contact Diagnoses Tear of left biceps muscle, initial encounter Afua Umanzor MD [address] [place] [address] [facility] ORTHO HAND [address] [place] [address] Referral ID Status Reason Start Date Expiration Date V isits Requested Visits Authorized [id number] Authorized 01/17/2022 01/17/2023 3 3 Scheduling Instructions Please call the [facility] at [phone] to schedule an appointment if one was not made for you today. Question Answer Adult patient to be evaluated for: Elbow - Bicep Tear - Left [5] Comments No prior visits in PM&R No prior visits in Orthopedics Specialty Diagnoses / Procedures Referred By Contac t Referred To Contact Radiology Procedures US HEP PORT SPLEN VEIN + DOPPLER Ccp [address] [address] [facility] ULTRASOUND [address] [place] [address] Referral ID Status Reason Start Date Expiration Date Visits Re quested Visits Authorized [id number] Closed 01/10/2022 01/10/2023 1 1 Specialty Diagnoses / Procedures Referred By Contac t Referred To Contact Radiology Procedures US SPLEEN US SPLEEN Ccp [address] [place] [address] [facility] ULTRASOUND [address] [place] [address] Referral ID Status Reason Start Date Expiration Date Visits Re quested Visits Authorized [id number] Closed 01/09/2022 01/09/2023 1 1 Specialty Diagnoses / Procedures Referred By Contac t Referred To Contact Radiology Procedures XR ABDOMEN 1 [address] Ccp [address] [place] [address] [facility] DIAGNOSTIC RADIOLOGY [address] [place] [address] [place] [address] Referral ID Status Reason Start Date Expiration Date Visits Re quested Visits Authorized [id number] Closed 01/09/2022 01/09/2023 1 1 Specialty Diagnoses / Procedures Referred By Contac t Referred To Contact Radiology Procedures XR ORBITS Ccp [address] [address] [facility] DIAGNOSTIC RADIOLOGY [address] [place] [address] [place] [address] Referral ID Status Reason Start Date Expiration Date Visits Re quested Visits Authorized [id number] Closed 01/08/2022 01/08/2023 1 1 Specialty Diagnoses / Procedures Referred By Contac t Referred To Contact Radiology Procedures US ASCITES SURVEY 4 QUADRANTS Ccp [address] [address] [facility] ULTRASOUND [address] [place] [address] Referral ID Status Reason Start Date Expiration Date Visits Re quested Visits Authorized [id number] Closed 01/08/2022 01/08/2023 1 1 Specialty Diagnoses / Procedures Referred By Contac t Referred To Contact Radiology Procedures US LIVER/GALL BLADDER/PANCREAS Ccp [address] [place] [address] [facility] ULTRASOUND [address] [place] [address] Referral ID Status Reason Start Date Expiration Date Visits Re quested Visits Authorized [id number] Closed 01/08/2022 01/08/2023 1 1 Specialty Diagnoses / Procedures Referred By Contac t Referred To Contact Radiology Procedures XRAY CHEST IMAGE IMPORT(CRHISTIANO) Ivy Chua MD [address] [place] [address] [facility] DIAGNOSTIC RADIOLOGY [address] [place] [address] [place] [address] Referral ID Status Reason Start Date Expiration Date Visits Re quested Visits Authorized [id number] Closed 01/08/2022 01/08/2023 1 1 Specialty Diagnoses / Procedures Referred By Contac t Referred To Contact Radiology Procedures CT BODY IMAGE IMPORT(CHRISTIANO) DOWNLOAD POWERSHARE IMAGES TO [facility] Ivy Chua MD [address] [place] [address] [facility] DIAGNOSTIC RADIOLOGY [address] [place] [address] [place] [address] Referral ID Status Reason Start Date Expiration Date Visits Re quested Visits Authorized [id number] Closed 01/08/2022 01/08/2023 1 1 Specialty Diagnoses / Procedures Referred By Contac t Referred To Contact Radiology Procedures XR HUMERUS LEFT Ccp 3 [place] [address] [facility] DIAGNOSTIC RADIOLOGY [address] [place] [address] [place] [address] Referral ID Status Reason Start Date Expiration Date Visits Re quested Visits Authorized [id number] Closed 01/08/2022 01/08/2023 1 1 Specialty Diagnoses / Procedures Referred By Contac t Referred To Contact Radiology Procedures XR ELBOW LEFT MINIMUM 3 VIEWS Ccp [address] [place] [address] [facility] DIAGNOSTIC RADIOLOGY [address] [facility] [place] [address] Referral ID Status Reason Start Date Expiration Date Visits Re quested Visits Authorized [id number] Closed 01/08/2022 01/08/2023 1 1 Advance Directives [...] the code status chosen by the patient/surrogate. Date Activated Date Inactivated Comments 01/08/2022 7:50 AM 01/17/2022 8:27 PM Question Answer Comments Documentation of decision pr ocess for this [...] Intravenous, DAILY, 5 doses, First dose on Tu01/14/22 at 1400, Last dose on Thu01/18/22 at [...] Reason: Not indicated)1805 (Given - Provider: Kristen Gan, IRENA)2200 (Hold/Not Given - Provider: Kristen Gan RN - Reason: Not indicated) insulin lispro (HumaLOG) 100 UNIT/ML injection 1-7 Units, Subcutaneous, 3 TIMES DAILY BEFORE MEALS, First dose on Thu01/17/22 at 0800, Until Discontinued 0800 (Hold/Not Given - Provider: Ana Salas RN - Reason: Not indicated)1200 (Hold/Not Given - Provider: Ana Salas RN - Reason: Not indicated)1700 (Hold/Not Given - Provider: Rosa Mensah, IRENA - Reason: Patient refused) lactulose 20 g/30 [...] Until Discontinued 2100 (Given - Provider: Farheen Dudley, IRENA) 0919 (Given - Provider: Chrystal Pritchett LPN)2208 (Given - Provider: Kristen Gan RN) 1105 (Given - Provider: Ana Salas, IRENA)2100 [...] ONCE, 1 dose, On 01/15/22 at 0600 0545 (Given - Provider: Obdulia [...] (pain score 4,5,6) 0250 (Given - Provider: Obdulai Callahan RN)0929 (Given - Provider: Teddy Maher [...] 999 mL/hr, PRN, Starting on Thu01/17/22 at 001, Until [...] antibody (HCC) Thrombocytopenia (HCC) Afua Umanzor MD [address] [place] [address] [facility] HEMATOLOGY [address] [place] [address] Referral ID Status Reason Start Date Expiration Date V isits Requested Visits Authorized [id number] Authorized 01/17/2022 01/17/2023 3 3 Reason Comments Blood test Reason Comments Monitoring/follow-up Fatigue nausea and vomiting Reason Comments AIHA On cellcept Cirrhosis/other liver disease Reason Comments New patient, to establish relationship Specialty Diagnoses / Procedures Referred By Contac t Referred To Contact Gastroenterology Diagnoses Alcoholic cirrhosis of liver without ascites (HCC) Tanvir Blakc MD [address] [place] [address] [facility] LIVER [address] [place] [address] Referral ID Status Reason Start Date Expiration Date V isits Requested Visits Authorized [id number] Authorized 05/06/2022 05/06/2023 3 3 Reason Comments [...] 03/22/2023 Reason Onset Date Comments Refill 07/13/2023 Reason Comments New Patient Specialty Diagnoses / Procedures Referred By Contac t Referred To Contact Radiology Diagnoses Alcoholic cirrhosis of liver without ascites (HCC) Procedures XA TRANSJUGULAR LIVER BIOPSY (CHRISTIANO) XA INTERVENTIONAL RADIOLOGY PROCEDURE SERVICE Marcello Ibanez MD [address] [place] [address] [facility]TR[facility] [address] [place] [address] Referral ID Status Reason Start Date Expiration Date V isits Requested Visits Authorized [id number] Authorized 10/27/2022 10/27/2023 1 1 Care Team (unrecognized sect ion and content) Medication Technician Relationship Specialty Start Date End Date Theo Burks MD [address] [place] [address] [address] [place], [place] [id number] PCP - General Family Medicine 08/25/22 Medication Technician Relationship Specialty Start Date End Date Theo Burks MD [address] [place] [address] [address] [place], [place] [id number] PCP - General Family Medicine 08/25/22 Medication Technician Relationship Specialty Start Date End Date Theo Burks MD [address] [place] [address] [address] [place], [place] [id number] PCP - General Family Medicine 08/25/22 Medication Technician Relationship Specialty Start Date End Date Theo Burks MD [address] [place] [address] [address] [place], [place] [id number] PCP - General Family Medicine 08/25/22 Medication Technician Relationship Specialty Start Date End Date Theo Bukrs MD [address] [place] [address] [address] [place], [place] [id number] PCP - General Family Medicine 08/25/22 Abbey Alvarez MD [address] [place] [address] [place] [address] Fellow Gastroenterology 09/13/22 Saskia Madison, [address]OT [address]IGHW[address] PATROL-UNIFIED COMMUNICATIONS ARCHITECT [address] [place] [address] [place] [address] FIRE PROTECTION SPECIALIST Gastroenterology 09/13/22 Medication Technician Relationship Specialty Start Date End Date Theo Burks MD [address] [place] [address] [place] [address] PCP - General Family Medicine 08/25/22 Abbey Alvarez MD [address] [place] [address] [place] [address] Fellow Gastroenterology 09/13/22 Saskia Madison, [address] PATROL-UNIFIED COMMUNICATIONS ARCHITECT [address] [place] [address] [place] [address] FIRE PROTECTION SPECIALIST Gastroenterology 09/13/22 Medication Technician Relationship Specialty Start Date End Date Theo Burks MD [address] [place] [address] [place] [address] PCP - General Family Medicine 08/25/22 Abbey Alvarez MD [address] [place] [address] [place] [address] Fellow Gastroenterology 09/13/22 Saskia Madison, [address] PATROL-UNIFIED COMMUNICATIONS ARCHITECT [address] [place] [address] [place] [address] FIRE PROTECTION SPECIALIST Gastroenterology 09/13/22 Medication Technician Relationship Specialty Start Date End Date Theo Burks MD [address] [place] [address] [place] [address] PCP - General Family Medicine 08/25/22 Abbey Alvarez MD [address] [place] [address] [place] [address] Fellow Gastroenterology 09/13/22 Saskia Madison APRN-UNIFIED COMMUNICATIONS ARCHITECT [address] [place] [address] [place] [address] FIRE PROTECTION SPECIALIST Gastroenterology 09/13/22 Medication Technician Relationship Specialty Start Date End Date Theo Burks MD [address] [place] [address] [place] [address] PCP - General Family Medicine 08/25/22 Abbey Alvarez MD [address] [place] [address] [place] [address] Fellow Gastroenterology 09/13/22 Saskia Madison APRN-UNIFIED COMMUNICATIONS ARCHITECT [address] [place] [address] [place] [address] FIRE PROTECTION SPECIALIST Gastroenterology 09/13/22 Medication Technician Relationship Specialty Start Date End Date Theo Burks MD [address] [place] [address] [place] [address] PCP - General Family Medicine 08/25/22 Abbey Alvarez MD [address] [place] [address] [place] [address] Fellow Gastroenterology 09/13/22 Saskia Madison APRN-UNIFIED COMMUNICATIONS ARCHITECT [address] [place] [address] [place] [address] FIRE PROTECTION SPECIALIST Gastroenterology 09/13/22 Medication Technician Relationship Specialty Start Date End Date Theo Burks MD [address] [place] [address] [place] [address] PCP - General Family Medicine 08/25/22 Abbey Alvarez MD [address] [place] [address] [place] [address] Fellow Gastroenterology 09/13/22 Saskia Madison APRN-UNIFIED COMMUNICATIONS ARCHITECT [address] [place] [address] [place] [address] FIRE PROTECTION SPECIALIST Gastroenterology 09/13/22 Medication Technician Relationship Specialty Start Date End Date Theo Burks MD [address] [place] [address] [place] [address] PCP - General Family Medicine 08/25/22 Abbey Alvarez MD [address] [place] [address] [place] [address] Fellow Gastroenterology 09/13/22 Saskia Madison, [address] PATROL-UNIFIED COMMUNICATIONS ARCHITECT [address] [place] [address] [place] [address] FIRE PROTECTION SPECIALIST Gastroenterology 09/13/22 Medication Technician Relationship Specialty Start Date End Date Theo Burks MD [address] [place] [address] [place] [address] PCP - General Family Medicine 08/25/22 Abbey Alvarez MD [address] [place] [address] [place] [address] Fellow Gastroenterology 09/13/22 Saskia Madison, [address] PATROL-UNIFIED COMMUNICATIONS ARCHITECT [address] [place] [address] [place] [address] FIRE PROTECTION SPECIALIST Gastroenterology 09/13/22 Medication Technician Relationship Specialty Start Date End Date Theo Burks MD [address] [place] [address] [place] [address] PCP - General Family Medicine 08/25/22 Abbey Alvarez MD [address] [place] [address] [place] [address] Fellow Gastroenterology 09/13/22 Saskia Madison, [address] PATROL-UNIFIED COMMUNICATIONS ARCHITECT [address] [place] [address] [place] [address] FIRE PROTECTION SPECIALIST Gastroenterology 09/13/22 Marcello Ibanez MD [address] [place] [address] Fellow Gastroenterology 11/08/22 Medication Technician Relationship Specialty Start Date End Date Theo Burks MD [address] [place] [address] [place] [address] PCP - General Family Medicine 08/25/22 Abbey Alvarez MD [address] [place] [address] [place] [address] Fellow Gastroenterology 09/13/22 Saskia Madison, [address] PATROL-UNIFIED COMMUNICATIONS ARCHITECT [address] [place] [address] [place] [address] FIRE PROTECTION SPECIALIST Gastroenterology 09/13/22 Marcello Ibanez MD [address] [place] [address] Fellow Gastroenterology 11/08/22 Medication Technician Relationship Specialty Start Date End Date Theo Burks MD [address] [place] [address] [place] [address] PCP - General Family Medicine 08/25/22 Abbey Alvarez MD [address] [place] [address] [place] [address] Fellow Gastroenterology 09/13/22 Saskia Madison, [address] PATROL-UNIFIED COMMUNICATIONS ARCHITECT [address] [place] [address] [place] [address] FIRE PROTECTION SPECIALIST Gastroenterology 09/13/22 Marcello Ibanez MD [address] [place] [address] Fellow Gastroenterology 11/08/22 Medication Technician Relationship Specialty Start Date End Date Theo Burks MD [address] [place] [address] [place] [address] PCP - General Family Medicine 08/25/22 Abbey Alvarez MD [address] [place] [address] [place] [address] Fellow Gastroenterology 09/13/22 Saskia Madison, [address] PATROL-UNIFIED COMMUNICATIONS ARCHITECT [address] [place] [address] [place] [address] FIRE PROTECTION SPECIALIST Gastroenterology 09/13/22 Marcello Ibanez MD [address] [place] [address] Fellow Gastroenterology 11/08/22 Medication Technician Relationship Specialty Start Date End Date Theo Burks MD [address] [place] [address] [place] [address] PCP - General Family Medicine 08/25/22 Abbey Alvarez MD [address] [place] [address] [place] [address] Fellow Gastroenterology 09/13/22 Saskia Madison, [address] PATROL-UNIFIED COMMUNICATIONS ARCHITECT [address] [place] [address] [place] [address] FIRE PROTECTION SPECIALIST Gastroenterology 09/13/22 Marcello Ibanez MD [address] [place] [address] Fellow Gastroenterology 11/08/22 Medication Technician Relationship Specialty Start Date End Date Theo Burks MD [address] [place] [address] [place] [address] PCP - General Family Medicine 08/25/22 Abbey Alvarez MD [address] [place] [address] [place] [address] Fellow Gastroenterology 09/13/22 Saskia Madison, [address] PATROL-UNIFIED COMMUNICATIONS ARCHITECT [address] [place] [address] [place] [address] FIRE PROTECTION SPECIALIST Gastroenterology 09/13/22 Marcello Ibanez MD [address] [place] [address] Fellow Gastroenterology 11/08/22 Medication Technician Relationship Specialty Start Date End Date Theo Burks MD [address] [place] [address] [place] [address] PCP - General Family Medicine 08/25/22 Abbey Alvarez MD [address] [place] [address] [place] [address] Fellow Gastroenterology 09/13/22 Saskia Madison APRN-UNIFIED COMMUNICATIONS ARCHITECT [address] [place] [address] [place] [address] FIRE PROTECTION SPECIALIST Gastroenterology 09/13/22 Marcello Ibanez MD [address] [place] [address] Fellow Gastroenterology 11/08/22 Medication Technician Relationship Specialty Start Date End Date Theo Burks MD [address] [place] [address] [place] [address] PCP - General Family Medicine 08/25/22 Abbey Alavrez MD [address] [place] [address] [place] [address] Fellow Gastroenterology 09/13/22 Saskia Madison, [address] PATROL-UNIFIED COMMUNICATIONS ARCHITECT [address] [place] [address] [place] [address] FIRE PROTECTION SPECIALIST Gastroenterology 09/13/22 Marcello Ibanez MD [address] [place] [address] Fellow Gastroenterology 11/08/22 Medication Technician Relationship Specialty Start Date End Date Theo Burks MD [address] [place] [address] [place] [address] PCP - General Family Medicine 08/25/22 Abbey Alvarez MD [address] [place] [address] [place] [address] Fellow Gastroenterology 09/13/22 Saskia Madison, [address] PATROL-UNIFIED COMMUNICATIONS ARCHITECT [address] [place] [address] [place] [address] FIRE PROTECTION SPECIALIST Gastroenterology 09/13/22 Marcello Ibanez MD [address] [place] [address] Fellow Gastroenterology 11/08/22 Medication Technician Relationship Specialty Start Date End Date Theo Burks MD [address] [place] [address] [place] [address] PCP - General Family Medicine 08/25/22 Abbey Alvarez MD [address] [place] [address] [place] [address] Fellow Gastroenterology 09/13/22 Saskia Madison, [address] PATROL-UNIFIED COMMUNICATIONS ARCHITECT [address] [place] [address] [place] [address] FIRE PROTECTION SPECIALIST Gastroenterology 09/13/22 Marcello Ibanez MD [address] [place] [address] Fellow Gastroenterology 11/08/22 Medication Technician Relationship Specialty Start Date End Date Theo Burks MD [address] [place] [address] [place] [address] PCP - General Family Medicine 08/25/22 Abbey Alvarez MD [address] [place] [address] [place] [address] Fellow Gastroenterology 09/13/22 Saskia Madison APRN-UNIFIED COMMUNICATIONS ARCHITECT [address] [place] [address] [place] [address] FIRE PROTECTION SPECIALIST Gastroenterology 09/13/22 Marcello Ibanez MD [address] [place] [address] Fellow Gastroenterology 11/08/22 Medication Technician Relationship Specialty Start Date End Date Theo Burks MD [address] [place] [address] [place] [address] PCP - General Family Medicine 08/25/22 Abbey Alvarez MD [address] [place] [address] [place] [address] Fellow Gastroenterology 09/13/22 Saskia Madison APRN-UNIFIED COMMUNICATIONS ARCHITECT [address] [place] [address] [place] [address] FIRE PROTECTION SPECIALIST Gastroenterology 09/13/22 Marcello Ibanez MD [address] [place] [address] Fellow Gastroenterology 11/08/22 Medication Technician Relationship Specialty Start Date End Date Theo Burks MD [address] [place] [address] [place] [address] PCP - General Family Medicine 08/25/22 Abbey Alvarez MD [address] [place] [address] [place] [address] Fellow Gastroenterology 09/13/22 Saskia Madison APRN-UNIFIED COMMUNICATIONS ARCHITECT [address] [place] [address] [place] [address] FIRE PROTECTION SPECIALIST Gastroenterology 09/13/22 Marcello Ibanez MD [address] [place] [address] Fellow Gastroenterology 11/08/22 Medication Technician Relationship Specialty Start Date End Date Theo Burks MD [address] [place] [address] [place] [address] PCP - General Family Medicine 08/25/22 Abbey Alvarez MD [address] [place] [address] [place] [address] Fellow Gastroenterology 09/13/22 Saskia Madison APRN-UNIFIED COMMUNICATIONS ARCHITECT [address] [place] [address] [place] [address] FIRE PROTECTION SPECIALIST Gastroenterology 09/13/22 Marcello Ibanez MD [address] [place] [address] Fellow Gastroenterology 11/08/22 Medication Technician Relationship Specialty Start Date End Date Theo Burks MD [address] [place] [address] [place] [address] PCP - General Family Medicine 08/25/22 Abbey Alvarez MD [address] [place] [address] [place] [address] Fellow Gastroenterology 09/13/22 Saskia Madison APRN-UNIFIED COMMUNICATIONS ARCHITECT [address] [place] [address] [place] [address] FIRE PROTECTION SPECIALIST Gastroenterology 09/13/22 Marcello Ibanez MD [address] [place] [address] Fellow Gastroenterology 11/08/22 Medication Technician Relationship Specialty Start Date End Date Theo Burks MD [address] [place] [address] [place] [address] PCP - General Family Medicine 08/25/22 Abbey Alvarez MD [address] [place] [address] [place] [address] Fellow Gastroenterology 09/13/22 Saskia Madison APRN-UNIFIED COMMUNICATIONS ARCHITECT [address] [place] [address] [place] [address] FIRE PROTECTION SPECIALIST Gastroenterology 09/13/22 Marcello Ibanez MD [address] [place] [address] Fellow Gastroenterology 11/08/22 Medication Technician Relationship Specialty Start Date End Date Theo Burks MD [address] [place] [address] [place] [address] PCP - General Family Medicine 08/25/22 Abbey Alvarez MD [address] [place] [address] [place] [address] Fellow Gastroenterology 09/13/22 Saskia Madison APRN-UNIFIED COMMUNICATIONS ARCHITECT [address] [place] [address] [place] [address] FIRE PROTECTION SPECIALIST Gastroenterology 09/13/22 Marcello Ibanez MD [address] [place] [address] [place] [address] Fellow Gastroenterology 11/08/22 Medication Technician Relationship Specialty Start Date End Date Theo Burks MD [address] [facility] [place] [address] PCP - General Family Medicine 08/25/22 Abbey Alvarez MD [address] [place] [address] [place] [address] Fellow Gastroenterology 09/13/22 Saskia Madison APRN-UNIFIED COMMUNICATIONS ARCHITECT [address] [facility] [place] [address] FIRE PROTECTION SPECIALIST Gastroenterology 09/13/22 Marcello Ibanez MD [address] [place] [address] Fellow Gastroenterology 11/08/22 Medication Technician Relationship Specialty Start Date End Date Josiane Mccullough MD [address] [place] [id number] PCP - General Family Medicine 07/18/13 Josiane Mccullough MD [address] [place] [id number] 07/18/13 Medication Technician Relationship Specialty Start Date End Date Theo Burks MD [address] [facility] [place] [address] PCP - General Family Medicine 08/25/22 Abbey Alvarez MD [address] [place] [address] [place] [address] Fellow Gastroenterology 09/13/22 Saskia Madison APRN-UNIFIED COMMUNICATIONS ARCHITECT [address] [facility] [place] [address] FIRE PROTECTION SPECIALIST Gastroenterology 09/13/22 Marcello Ibanez MD [address] [facility] [place] [address] Fellow Gastroenterology 11/08/22 Source Comments (unrecognize d section and content) In the event this informatio n is protected by the Federal Confidentiality of Alcohol and Drug Abuse Patient Records regulations: The Federal rules restrict any use of the information to criminally investigate or prosecute any alcohol or drug abuse patient.[facility] (unrecognized sect ion and content) No Status Records FoundNo Status Records FoundNo Status Records FoundNo Status Records FoundNo Status Records FoundNo Status Records FoundNo Status Records FoundNo Status Records FoundNo Status Records FoundNo Status Records FoundNo Status Records FoundNo Status Records FoundNo Status Records FoundNo Status Records FoundNo Status Records FoundNo Status Records FoundNo Status Records FoundNo Status Records FoundNo Status Records FoundNo Status Records FoundNo Status Records FoundNo Status Records Found INFORMATION SOURCE (unrecogn ized section and content) DATE CREATED AUTHOR 01/01/2024 [facility] DATE CREATED AUTHOR AUTHOR'S ORGANIZ ATION 01/23/2024 [facility] DATE CREATED AUTHOR AUTHOR'S ORGANIZ ATION 02/21/2024 [facility] DATE CREATED AUTHOR AUTHOR'S ORGANIZ ATION 03/04/2024 [facility] DATE CREATED AUTHOR AUTHOR'S ORGANIZ ATION 03/05/2024 [facility] DATE CREATED AUTHOR AUTHOR'S ORGANIZ ATION 03/08/2024 [facility] DATE CREATED AUTHOR AUTHOR'S ORGANIZ ATION 03/11/2024 [facility] DATE CREATED AUTHOR AUTHOR'S ORGANIZ ATION 04/11/2024 [facility] DATE CREATED AUTHOR AUTHOR'S ORGANIZ ATION 04/15/2024 [facility] FOR RECORDS PERTAINING TO PATIENTS WHO ARE [...] BE BASED ON THE PRIMARY CLINICAL RECORDS. [facility]. provides no warranty or guarantee of the accuracy or completeness of information in this document.
[2024-04-15] MEDS: MULTIVITAMIN TABLET 1 TAB PO (08:34)
[2024-04-15] MEDS: FUROSEMIDE 40 MG/4 ML VIAL IVP (08:34)
[2024-04-15] MEDS: LACTULOSE 10 GM/15 ML UD CUP 20 GM PO (08:34)
[2024-04-15] MEDS: SPIRONOLACTONE 25 MG TABLET 50 MG PO (08:34)
[2024-04-15] MEDS: VANCOMYCIN HCL 1,250 MG in 0.9 % SODIUM CHLORIDE 250 ML 166.667 MG IV ×2 (09:32→16:05)
--- NOTE | 2024-04-15 11:05 | CM.NOTE ---
Rounds made with Dr. Sullivan. Dr Sullivan discussed test results and treatment plan. Edgardo verbalized understanding. No discharge today.
--- NOTE | 2024-04-15 11:11 | P.IMPN_ITS ---
Progress Note: A&P Assessment and Plan (1) Cellulitis of right leg: Assessment and Plan: Right lower extremity cellulitis - on IV vancomycin and Levaquin. It appears better from yesterday but is still has considerable erythema/lower extremity edema. Continue with IV antibiotics follow-up blood cultures. (2) Hyponatremia: Assessment and Plan: Improved with IV Lasix. Continue with IV Lasix as patient is slightly volume o verloaded and requiring IV antibiotics to avoid risk of volume overload. Monitor closely. (3) Immunosuppressed status: Assessment and Plan: Due to history of liver cirrhosis, warm autoimmune hemolytic anemia. 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 Monitor close. (5) Liver cirrhosis, alcoholic: Assessment and Plan: Somewhat volume overload on exam. On IV Lasix. Monitor closely. Qualifiers: Ascites presence: without ascites Qualified Code(s): K70.30 - Alcoholic cirrhosis of liver without ascites (6) Hyperbilirubinemia: Assessment and Plan: Slightly elevated bilirubin from his usual baseline. Monitor closely. No evidence of active hemolytic anemia (7) Hyperammonemia: Assessment and Plan: Increase lactulose to 3 times daily dosing as patient has not had a bowel movement and is at high risk of hepatic encephalopathy considering his prior Internal Medicine - PN: Subj Subjective Interval history: Seen and examined. No overnight events. Patient reports that his right lower extremity is feeling better but there is still considerable right lower extremity edema/skin discoloration. His pain is however significantly improved from yesterday. Exam Constitutional Vital Signs, click to edit/add: Last Vital Signs Temp 97.7 F 04/15/24 07:58 Pulse 76 04/15/24 07:58 Resp 18 04/15/24 07:58 BP 114/64 04/15/24 07:58 Pulse Ox 97 04/15/24 10:24 O2 Del Method Room Air 04/15/24 10:24 Documenting provider has reviewed patient's vital signs: yes Common normals: no apparent distress and oriented x3 General appearance: cooperative Respiratory Common normals: normal respiratory effort and clear to auscultation bilaterally Effort & inspection: able to speak in complete sentences Auscultation: clear to auscultation bilaterally Cardio Common normals: regular rate, S1 normal heart sound and S2 normal heart sound Rate: regular rate Heart sounds: S1 normal and S2 normal Extremity Other: Right lower extremity-bluish discoloration along with swelling, tenderness. Skin is warm to touch. Appearance is consistent with cellulitis and it extends from his foot all the way up to his knee It is slightly improved from yesterday. Neuro Common normals: oriented x3, moves all extremities and no focal motor deficits Psych Common normals: mental status grossly normal, denies hallucinations, denies homicidal ideation and denies suicidal ideation Internal Medicine - PN: Obj Da Labs Labs: Laboratory Results - last 24 hr 04/14/24 04/14/24 04/14/24 13:36 13:42 13:56 WBC 8.9 RBC 3.30 L Hgb 11.8 L Hct 33.3 L MCV 100.9 H MCH 35.8 H MCHC 35.4 H RDW 15.4 H Plt Count 81 L MPV 10.7 Neut % (Auto) Lymph % (Auto) Kaufman % (Auto) Eos % (Auto) Baso % (Auto) Neut # (Auto) Lymph # (Auto) Kaufman # (Auto) Eos # (Auto) Baso # (Auto) Abs Immat Gran (auto) Seg Neuts % (Manual) 77.0 H Band Neutrophils % 13.0 H Lymphocytes % (Manual) 4.0 L Monocytes % (Manual) 3.0 Eosinophils % (Manual) 2.0 Basophils % (Manual) 1.0 Imm/Tot Granulo (auto) Neutrophils # (Manual) 6.85 H Band Neutrophils # 1.2 H Lymphocytes # (Manual) 0.35 L Monocytes # (Manual) 0.26 L Eosinophils # (Manual) 0.17 Basophils # (Manual) 0.08 Anisocytosis 1+ PT 15.5 H INR 1.52 VBG pH 7.478 H VBG pCO2 29.3 L Sodium 125 L Potassium 4.3 Chloride 94 L Carbon Dioxide 24.9 Anion Gap 10.4 BUN 8.0 Creatinine 0.73 Est GFR ( Amer) >60 Est GFR (Non-Af Amer) >60 BUN/Creatinine Ratio 11.0 Glucose 101 Lactate 1.3 Calcium 8.4 L Magnesium 1.2 L Total Bilirubin 6.4 H AST 81 H ALT 56 Alkaline Phosphatase 235 H Total Protein 6.9 Albumin 2.7 L Globulin 4.2 Albumin/Globulin Ratio 0.6 Urine Color Urine Clarity Urine pH Ur Specific [place] Urine Protein Urine Glucose (UA) Urine Ketones Urine Occult Blood Urine Nitrite Urine Bilirubin Urine Urobilinogen Ur Leukocyte Esterase 04/14/24 04/14/24 04/15/24 14:59 22:53 07:07 WBC 10.3 RBC 2.73 L Hgb 10.1 L Hct 28.4 L MCV 104.0 H MCH 37.0 H MCHC 35.6 H RDW 15.5 H Plt Count 64 L MPV 11.2 Neut % (Auto) 81.0 H Lymph % (Auto) 8.8 L Kaufman % (Auto) 6.8 Eos % (Auto) 2.1 Baso % (Auto) 0.5 Neut # (Auto) 8.3 H Lymph # (Auto) 0.9 L K[place]man # (Auto) 0.7 Eos # (Auto) 0.2 Baso # (Auto) 0.1 Abs Immat Gran (auto) 0.08 H Seg Neuts % (Manual) Band Neutrophils % Lymphocytes % (Manual) Monocytes % (Manual) Eosinophils % (Manual) Basophils % (Manual) Imm/Tot Granulo (auto) 0.8 H Neutrophils # (Manual) Band Neutrophils # Lymphocytes # (Manual) Monocytes # (Manual) Eosinophils # (Manual) Basophils # (Manual) Anisocytosis PT INR VBG pH VBG pCO2 Sodium 129 L 132 L Potassium 4.3 4.6 Chloride 99 102 Carbon Dioxide 25.3 23.7 Anion Gap 9.0 10.9 BUN 10.0 10.0 Creatinine 0.74 0.62 L Est GFR ( Amer) >60 >60 Est GFR (Non-Af Amer) >60 >60 BUN/Creatinine Ratio 13.5 16.1 Glucose 130 H 113 H Lactate Calcium 8.0 L 8.0 L Magnesium Total Bilirubin 9.2 H AST 68 H ALT 48 Alkaline Phosphatase 160 H Total Protein 5.8 L Albumin 2.2 L Globulin 3.6 Albumin/Globulin Ratio 0.6 Urine Color Lt. yellow Urine Clarity Clear Urine pH 7.0 Ur Specific [place] <=1.005 A Urine Protein Negative Urine Glucose (UA) Negative Urine Ketones Negative Urine Occult Blood Negative Urine Nitrite Negative Urine Bilirubin Negative Urine Urobilinogen 1.0 Ur Leukocyte Esterase Negative
[2024-04-15] MEDS: LACTULOSE 10 GM/15 ML UD CUP 30 GM PO ×2 (14:01→22:20)
[2024-04-15] MEDS: LEVOFLOXACIN IN DEXTROSE 5 % 750 MG/150 ML PREMIX 100 MG IV (20:51)
[2024-04-15] MEDS: ENOXAPARIN SODIUM 60 MG/0.6 ML SYRINGE 40 MG SUBQ (22:20)
[2024-04-16 00:16] VITALS: BP 119/67; PULSE 85; TEMP 37.2; O2SAT 94
[2024-04-16] MEDS: VANCOMYCIN HCL 1,250 MG in 0.9 % SODIUM CHLORIDE 250 ML 166 MG IV ×2 (01:42→08:36)
[2024-04-16 03:55] VITALS: O2SAT 95
[2024-04-16 04:00] VITALS: BP 102/59; PULSE 87; TEMP 36.6; O2SAT 95
[2024-04-16] MEDS: LACTULOSE 10 GM/15 ML UD CUP 30 GM PO (06:09)
[2024-04-16 06:26] LABS: Basophils Percent Auto 0.5 % (0.2-2.0); Eosinophils Absolute Auto 0.2 10^3/uL (0.0-0.7); Eosinophils Percent Auto 2.4 % (0.9-7.0); Hematocrit 26.6 % (42.0-54.0); Hemoglobin 9.1 g/dL (14.0-18.0); Immature Granulocytes Abs Auto 0.06 10^3/uL (0.00-0.03); Immature Granulocytes Pct Auto 0.9 % (0.0-0.5); Lymphocytes Absolute Auto 1.1 10^3/uL (1.2-3.8); Lymphocytes Percent Auto 16.3 % (20.5-60.0); Mean Corpuscular HGB Conc 34.2 g/dL (29.9-35.2); Mean Corpuscular Hemoglobin 35.5 pg (25.9-34.0); Mean Corpuscular Volume 103.9 fL (80.0-94.0); Mean Platelet Volume 11.4 fL (9.5-13.5); Monocytes Absolute Auto 0.6 10^3/uL (0.3-0.8); Monocytes Percent Auto 8.5 % (1.7-12.0); Neutrophils Absolute Auto 4.7 10^3/uL (1.4-6.5); Neutrophils Percent Auto 71.4 % (43.0-75.0); Platelet Count 64 10^3/uL (150-450); Red Blood Count 2.56 10^6/uL (4.70-6.10); Red Cell Distribution Width 15.4 % (11.0-15.0); White Blood Count 6.6 10^3/uL (4.0-11.0)
[2024-04-16 06:40] LABS: Vancomycin Trough 16.2 ug/mL (5.0-20.0)
[2024-04-16 06:59] LABS: Alanine Aminotransferase 40 U/L (16-63); Albumin Globulin Ratio 0.6; Alkaline Phosphatase 186 U/L (46-116); Anion Gap 10.5; Aspartate Amino Transferase 53 U/L (15-37); BUN Creatinine Ratio 11.1; Bilirubin Total 4.6 mg/dL (0.2-1.0); Carbon Dioxide 26.5 mmol/L (21.0-32.0); Chloride 103 mmol/L (98-107); Estimated GFR (African America >60 (>=60); Estimated GFR (Non-African Ame >60 (>=60); Globulin 3.4 g/dL; Glucose 118 mg/dL (74-106); Sodium 136 mmol/L (136-145); Total Protein 5.4 g/dL (6.4-8.2)
[2024-04-16 07:39] VITALS: BP 117/64; PULSE 84; TEMP 36.9; O2SAT 96
[2024-04-16 07:50] LABS: Ammonia 71 umol/L (11-32)
[2024-04-16] MEDS: FUROSEMIDE 40 MG/4 ML VIAL IVP (08:36)
[2024-04-16] MEDS: SPIRONOLACTONE 25 MG TABLET 50 MG PO (08:36)
[2024-04-16] MEDS: MULTIVITAMIN TABLET 1 TAB PO (08:36)
--- NOTE | 2024-04-16 09:56 | P.DS_ITS ---
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 Patient did have normal white blood cell count but with significant left shift. That is improving at the time of discharge. Leg feels better to him. Still having some calor but has not spread outside the line of demarcation. His hyponatremia is improving his thrombocytopenia is persisting his hyperbilirubinemia is improving, his hyperammonemia is stable, patient states he has had difficulty maintaining a lower level after changing to a different pharmacy. Doses will be adjusted as an outpatient. Patient feels comfortable being discharged home and following up with PCP and vascular surgery within the next week. Medications see list. Status at Discharge Overall status at discharge: patient is not back to baseline Time Spent with Patient Time attestation: Total time spent providing and/or coordinating discharge services: Time spent: greater than 30 minutes Exam Constitutional Vital Signs, click to edit/add: Last Vital Signs Temp 98.5 F 04/16/24 07:39 Pulse 84 04/16/24 07:39 Resp 16 04/16/24 07:42 BP 117/64 04/16/24 07:39 Pulse Ox 96 04/16/24 07:39 O2 Del Method Room Air 04/16/24 07:39 DS: Data Data Completed and Pending Labs on day of discharge: Labs from last 24 hours 04/16/24 06:13 WBC 6.6 RBC 2.56 L Hgb 9.1 L Hct 26.6 L MCV 103.9 H MCH 35.5 H MCHC 34.2 RDW 15.4 H Plt Count 64 L MPV 11.4 Neut % (Auto) 71.4 Lymph % (Auto) 16.3 L Wilkes % (Auto) 8.5 Eos % (Auto) 2.4 Baso % (Auto) 0.5 Neut # (Auto) 4.7 Lymph # (Auto) 1.1 L Wilkes # (Auto) 0.6 Eos # (Auto) 0.2 Baso # (Auto) 0.0 Abs Immat Gran (auto) 0.06 H Imm/Tot Granulo (auto) 0.9 H Sodium 136 Potassium 4.0 Chloride 103 Carbon Dioxide 26.5 Anion Gap 10.5 BUN 7.0 Creatinine 0.63 L Est GFR ( Amer) >60 Est GFR (Non-Af Amer) >60 BUN/Creatinine Ratio 11.1 Glucose 118 H Calcium 8.0 L Total Bilirubin 4.6 H AST 53 H ALT 40 Alkaline Phosphatase 186 H Ammonia 71 H* Total Protein 5.4 L Albumin 2.0 L Globulin 3.4 Albumin/Globulin Ratio 0.6 Vancomycin Trough 16.2 Discharge Plan Discharge Disposition: Home, Self-Care Discharge Medications: New lactulose 10 gram/15 mL (15 mL) Solution 45 ml PO TID Qty: 4050 11RF levofloxacin 750 mg tablet 750 mg PO DAILY 14 Days Qty: 14 0RF doxycycline monohydrate 100 mg capsule 100 mg PO BID 14 Days Qty: 28 0RF Continued spironolactone 50 mg tablet 50 mg PO DAILY multivitamin with folic acid [Tab-A-Scott] 400 mcg tablet 1 tab PO DAILY furosemide 20 mg tablet 20 mg PO DAILY ondansetron 4 mg tablet,disintegrating 4 mg PO TID folic acid 1 mg tablet 1 mg PO DAILY mycophenolate mofetil 500 mg tablet 500 mg PO BID cholecalciferol (vitamin D3) 1,250 mcg (50,000 unit) capsule 1,250 mcg PO QWEEK Discontinued lactulose 10 gram/15 mL solution 30 ml PO QID Print Language: Omani Patient Instructions: Doxycycline (By mouth), Levofloxacin (By mouth) Forms: Portal Instructions Follow Up Appointments: Please call Thursday and schedule a follow up with your PCP. Continue seeing your specialist. Discharge Date/Time: 04/16/24 11:45
--- NOTE | 2024-04-18 12:07 | CM.DCFOLLOWU ---
Person spoke with: Edgardo How are you feeling? Good How is your pain? No pain Did you understand your discharge instructions? Yes Do you have any questions about your discharge instructions? No Were you given any prescriptions at discharge? Yes Were you able to get your prescriptions filled? Yes Do you understand how to take your medications as ordered? Yes Do you have any questions about your follow up appointment and do you plan to keep your follow up appointment? Appointment is scheduled for Apr 29 and plan on going to appt. Is there anything else that you would like to discuss? No Questions/Comments/Concerns/Other:
== END 2024-04-16 11:45 | disposition home or self-care (01) | DRG 603 ==
LOC: ER 15:43 → MS 04-15 07:40
PROVIDERS: Internal Medicine; Physician Assistant; Admitting Provider Family Medicine; Emergency Provider Emergency Medicine; Visit Provider Family Medicine
DX: L03.115 Cellulitis of right lower limb (principal); E87.1 Hypo-osmolality and hyponatremia; D59.11 Warm autoimmune hemolytic anemia; D84.9 Immunodeficiency, unspecified; E72.20 Disorder of urea cycle metabolism, unspecified; K70.30 Alcoholic cirrhosis of liver without ascites; I73.9 Peripheral vascular disease, unspecified; I10 Essential (primary) hypertension; Z87.891 Personal history of nicotine dependence; Z79.899 Other long term (current) drug therapy; Z87.440 Personal history of urinary (tract) infections
CPT/HCPCS: 36415; 80048; 80053; 80202; 81003; 82140; 82800; 83605; 83735; 85007; 85025; 85027; 85610; 87040; 93971; 94761; 96365; 96366; 96367; 96368; 96372; 96375; 96376; 99285; J0743; J1170; J1650; J1940; J2270; J2405; J3370; J3475

== ENCOUNTER 2024-06-06 14:13 | Outpatient (RCR) | payer OTHER, SELFPAY | END 2024-06-07 16:39 | disposition home or self-care (01) | LOC: OT 14:13 | PROVIDERS: Visit Provider Student in an Organized Health Care Education/Training Program | DX: I89.0 Lymphedema, not elsewhere classified (principal) | CPT/HCPCS: 97167; 97535 ==

== ENCOUNTER 2025-02-27 23:35 | Inpatient (IN) | payer OTHER, SELFPAY ==
[2025-02-27 23:37] VITALS: BP 143/90; PULSE 92; TEMP 37.9; O2SAT 98; BMI 26.3
[2025-02-28] VITALS (18 sets, daily range): BP systolic 98–119; BP diastolic 50–72; PULSE 72–94; TEMP 36.8–38.3; O2SAT 86–96; BMI 26.4
--- NOTE | 2025-02-28 00:07 | ED_ITS ---
HPI - Skin/Abscess/Foreign Bdy General Chief complaint: Skin/Abscess/Foreign Body Stated complaint: LOWER EXTREMITY PAIN, RIGHT Time Seen by Provider: 02/27/25 23:47 Source: patient Mode of arrival: ambulance Limitations: no limitations History of Present Illness HPI narrative: ex alcohol drinker. History of cirrhosis from alcohol abuse. past history of cellulitis of his lower extremities. presents with swelling and pain of the right leg along with fever reminiscent of past admission for cellulitis. complaint of chills also. No abdominal pain or respiratory symptoms Related Data Home Medications ?Medication ?Instructions ?Recorded ?Confirmed spironolactone 50 mg tablet 50 mg PO DAILY 08/12/23 ondansetron 4 mg disintegrating 4 mg PO TID 04/01/24 0 02/28/25 tablet Previous Rx's ?Medication ?Instructions ?Recorded cefdinir 300 mg capsule 600 mg (2 x 300 mg) PO DAILY #20 03/03/25 caps cefdinir 300 mg capsule 600 mg (2 x 300 mg) PO DAILY #30 03/03/25 caps doxycycline monohydrate 100 mg 100 mg PO BID 14 days # 28 caps 03/03/25 capsule doxycycline monohydrate 100 mg 100 mg PO BID 14 days # 28 caps 03/03/25 capsule magnesium oxide 400 mg (241.3 mg 400 mg PO BID #60 tab s 03/03/25 magnesium) tablet acetaminophen 300 mg-codeine 30 mg 1 tab PO Q6H PRN pa in 5 days #20 03/04/25 tablet tabs Allergies Allergy/AdvReac Type Severity Reaction Status Date / Time amoxicillin Allergy Severe Unknown Verified 03/04/25 11:26 Penicillins Allergy Severe Unknown Verified 03/04/25 11:26 perflutren (From Definity) Allergy Intermediate Muscle Pain Verified 03/04/25 11:26 Review of Systems 2 ROS0 Status of ROS 10 or more systems reviewed and unremark able except as noted in history and below [facility] Medical History (Updated 03/04/25 @ 13:03 by Margarito Sanchez MD) Hyponatremia ?E87.1 - Hypo-osmolality and hyponatremia (ICD-10) Cellulitis of right leg ?L03.115 - Cellulitis of right lower limb (ICD-10) Liver problem ?K76.9 - Liver disease, unspecified (ICD-10) Peripheral vascular disease, unspecified ?I73.9 - Peripheral vascular disease, unspecified (ICD-10) Hyperammonemia ?E72.20 - Disorder of urea cycle metabolism, unspecified (ICD-10) Urinary tract infection ?N39.0 - Urinary tract infection, site not specified (ICD-10) Cellulitis of right leg ?L03.115 - Cellulitis of right lower limb (ICD-10) Hypertension ?I10 - Essential (primary) hypertension (ICD-10) Esophageal varices determined by endoscopy ?I85.00 - Esophageal varices without bleeding (ICD-10) Cellulitis of left leg ?L03.116 - Cellulitis of left lower limb (ICD-10) Fracture, jaw ?S02.609A - Fracture of mandible, unspecified, initial encounter for closed fracture (ICD-10) Immunosuppressed status ?D84.9 - Immunodeficiency, unspecified (ICD-10) Hyperbilirubinemia ?E80.6 - Other disorders of bilirubin metabolism (ICD-10) 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 Smoking status: Former smoker Do you use any of these nicotine containing products: smokeless tobacco Non-prescribed substance use: cannabis (any form) Non-prescribed substance use details: abhishek Previous occupational history: [employer] Highest level of school completed/degree received: high school graduate Are you now , , , , never or living with a partner: never In a typical week, how many times do you talk on the telephone with family, friends, or neighbors: 3 or more times per week How often do you get together with friends or relatives: twice per week How often do you attend hindu or taoist services: never Do you belong to any clubs or organizations such as hindu groups unions, fraternal or athletic groups, or school groups: no Total score: 1 Score interpretation: A score of less than or equal to 1 indicates the most socially isolated. Little interest or pleasure in doing things: not at all Feeling down, depressed, or hopeless: not at all Feel stressed/tense/nervous/anxious/difficulty sleeping: to some extent Life stressor details: Pain in legs Do you think of yourself as: straight/heterosexual Gender Identity: male Exam Constitutional Vital Signs, click to edit/add: Last Vital Signs Temp 97.7 F 03/03/25 08:00 Pulse 74 03/03/25 08:00 Resp 18 03/03/25 08:00 BP 122/77 03/03/25 08:00 Pulse Ox 97 03/03/25 11:34 O2 Del Method Room Air 03/03/25 11:34 O2 Flow Rate 1 03/03/25 04:00 Common normals: no apparent distress, average body habitus, oriented x3, no limitations, healthy appearing, alert and well nourished [facility] Common normals: normocephalic and head/scalp atraumatic Eye Common normals: PERRL and EOMs intact bilaterally Respiratory Common normals: normal respiratory effort, no retractions, no use of accessory muscles and clear to auscultation bilaterally Cardio Common normals: regular rate, regular rhythm, S1 normal heart sound and S2 normal heart sound GI Common normals: Normal to inspection, nondistended, normoactive bowel sounds present, soft to palpation and non-tender Extremity Extremity image (front): 2 1. swollen, warm and tender Neuro Common normals: oriented x3, CN's II-XII intact bilaterally, moves all extremities and no focal motor deficits Psych Appearance: grossly normal Course Course Hospital Course: Patient was admitted with failed outpatient treatment of cellulitis, initial screening culture came back positive for E. coli, continue with current IV antibiotics of Invanz, doxycycline for MRSA possibility, leg feels much improved today, cultures are not back yet, but with typical sensitivity pattern for E. coli with cefdinir will change patient to oral cefdinir at home, follow-up with his PCP in 3 days for close follow-up and final cultures result should be done, I am on-call for the hospital for the weekend so if cultures come back resistant to cefdinir will adjust medications over the weekend. Medications see list. Follow-up with PCP on Thursday Vital Signs Vital signs: Vital Signs Temperature 100.2 F 02/27/25 23:37 Pulse Rate 92 H 02/27/25 23:37 Respiratory Rate 18 02/27/25 23:37 Blood Pressure 143/90 H 02/27/25 23:37 Pulse Oximetry 98 02/27/25 23:37 Oxygen Delivery Method Room Air 02/27/25 23:37 Temperature 97.7 F 03/03/25 08:00 Pulse Rate 74 03/03/25 08:00 Respiratory Rate 18 03/03/25 08:00 Blood Pressure 122/77 03/03/25 08:00 Pulse Oximetry 97 03/03/25 11:34 Oxygen Delivery Method Room Air 03/03/25 11:34 Oxygen Delivery Flow Rate 1 03/03/25 04:00 MDM - Skin/Abscess/Foreign Bdy MDM Narrative Medical decision making narrative: patient presents with acute onset of swelling ,fever and pain of right leg. Similar to past episodes of cellulitis of this same leg. given dose of clindamycin and vanco. Has history of Cirrhosis and elevated T. bili. alk phos and alt,ast similar to past labs. Fever 101. Blood cultures obtained. Discussed with the hospitalist and patient accepted for admission Lab Data Labs: Lab Results 02/27/25 02/27/25 02/27/25 Range/Units 00:00 23:45 23:58 WBC 5.0 (4.0-11.0) 10^3/uL RBC 3.73 L (4.70-6.10) 10^6/uL Hgb 13.5 L (14.0-18.0) g/dL Hct 37.9 L (42.0-54.0) % MCV 101.6 H (80.0-94.0) fL MCH 36.2 H (25.9-34.0) pg MCHC 35.6 H (29.9-35.2) g/dL RDW 14.3 (11.0-15.0) % Plt Count 64 L (150-450) 10^3/uL MPV 11.2 (9.5-13.5) fL Seg Neuts % (Manual) 81.0 H (43.0-75.0) Lymphocytes % (Manual) 13.0 L (20.5-60.0) % Atypical Lymphs % (Man) 3.0 % Monocytes % (Manual) 1.0 L (1.7-12.0) % Eosinophils % (Manual) 2.0 (0.9-7.0) % Basophils % (Manual) 0.0 L (0.2-2.0) % Neutrophils # (Manual) 4.05 (1.4-6.5) 10^3/uL Lymphocytes # (Manual) 0.65 L (1.20-3.80) 10^3/uL Abs Atypical Lymphs Man 0.15 Monocytes # (Manual) 0.05 L (0.30-0.80) 10^3/uL Eosinophils # (Manual) 0.10 (0.00-0.70) 10^3/uL Basophils # (Manual) 0.00 (0.00-0.10) 10^3/uL Sodium 140 (136-145) mmol/L Potassium 4.0 (3.5-5.1) mmol/L Chloride 104 (98-107) mmol/L Carbon Dioxide 27.9 (21.0-32.0) mmol/L Anion Gap 12.1 BUN 13.0 (7.0-18.0) mg/dL Creatinine 0.59 L (0.70-1.30) mg/dL Est GFR ( Amer) >60 (>=60 mL/min/1.73m^2) Est GFR (Non-Af Amer) >60 (>=60 mL/min/1.73m^2) BUN/Creatinine Ratio 22.0 Glucose 75 (74-106) mg/dL Lactate 1.8 (0.4-2.0) mmol/L Calcium 9.1 (8.5-10.1) mg/dL Magnesium 1.5 L (1.8-2.4) mg/dL Total Bilirubin 3.2 H (0.2-1.0) mg/dL AST 48 H (15-37) U/L ALT 38 (16-63) U/L Alkaline Phosphatase 175 H (46-116) U/L Total Protein 7.1 (6.4-8.2) g/dL Albumin 3.2 L (3.4-5.0) g/dL Globulin 3.9 g/dL Albumin/Globulin Ratio 0.8 Ethanol Quant <3 mg/dL Specimen Source Blood A.calcoaceticus-baumannii cmplx PCR Not detected (NOT DETECTE) Bacteroides fragilis Not detected (NOT DETECTE) Aleta albicans (PCR) Not detected (NOT DETECTE) Aleta auris (PCR) Not detected (NOT DETECTE) C. glabrata (PCR) Not detected (NOT DETECTE) C. krusei (PCR) Not detected (NOT DETECTE) C. parapsilosis (PCR) Not detected (NOT DETECTE) C. tropicalis (PCR) Not detected (NOT DETECTE) C. neoform/gattii (PCR) Not detected (NOT DETECTE) Enterobacterales (PCR) Detected A* (NOT DETECTE) E. cloacae complex PCR Not detected (NOT DETECTE) Enterococc faecalis PCR Not detected (NOT DETECTE) Enterococc faecium PCR Not detected (NOT DETECTE) E. coli (PCR) Detected A* (NOT DETECTE) H. influenzae (PCR) Not detected (NOT DETECTE) Klebsiella aerogenes (PCR) Not detected (NOT DETECTE) Klebsiella oxytoca PCR Not detected (NOT DETECTE) K. pneumoniae group (PCR) Not detected (NOT DETECTE) List. monocytogenes PCR Not detected (NOT DETECTE) N. meningitidis (PCR) Not detected (NOT DETECTE) Proteus spp. (copies/mL) Not detected (NOT DETECTE) Salmonella spp. (PCR) Not detected (NOT DETECTE) Serratia marcescens PCR Not detected (NOT DETECTE) Staphylococcus sp PCR Not detected (NOT DETECTE) Staph aureus (PCR) Not detected (NOT DETECTE) mecA/C & MREJ Resist Gene Not applicable (NOT DETECTE) mecA/C-Methicil Resis Gene Not applicable (NOT DETECTE) mcr-1 Colistin Res Gene PCR Not detected (NOT DETECTE) Staph epidermidis (PCR) Not detected (NOT DETECTE) Staph lugdunensis (TEM-PCR) Not detected (NOT DETECTE) S. maltophilia (PCR) Not detected (NOT DETECTE) Streptococcus sp PCR Not detected (NOT DETECTE) Strep agalactiae (PCR) Not detected (NOT DETECTE) Strep pneumoniae (PCR) Not detected (NOT DETECTE) S. pyogenes (PCR) Not detected (NOT DETECTE) P. aeruginosa (PCR) Not detected (NOT DETECTE) Lazaro/B-Vanco Res Genes Not applicable (NOT DETECTE) blaIMP Car res Gene PCR Not detected (NOT DETECTE) KPC (blaKPC) Detect PCR Not detected (NOT DETECTE) NDM (blaNDM) Detect PCR Not detected (NOT DETECTE) OXA-48 Carbapenem Resis Gene (PCR) Not detected (NOT DETECTE) blaVIM Car Res Gene PCR Not detected (NOT DETECTE) CTX-M ESBL (PCR) Not detected (NOT DETECTE) 02/28/25 Range/Units 04:55 WBC 5.9 (4.0-11.0) 10^3/uL RBC 3.23 L (4.70-6.10) 10^6/uL Hgb 11.7 L (14.0-18.0) g/dL Hct 33.0 L (42.0-54.0) % MCV 102.2 H (80.0-94.0) fL MCH 36.2 H (25.9-34.0) pg MCHC 35.5 H (29.9-35.2) g/dL RDW 14.5 (11.0-15.0) % Plt Count 50 L (150-450) 10^3/uL MPV 10.7 (9.5-13.5) fL Seg Neuts % (Manual) (43.0-75.0) Lymphocytes % (Manual) (20.5-60.0) % Atypical Lymphs % (Man) % Monocytes % (Manual) (1.7-12.0) % Eosinophils % (Manual) (0.9-7.0) % Basophils % (Manual) (0.2-2.0) % Neutrophils # (Manual) (1.4-6.5) 10^3/uL Lymphocytes # (Manual) (1.20-3.80) 10^3/uL Abs Atypical Lymphs Man Monocytes # (Manual) (0.30-0.80) 10^3/uL Eosinophils # (Manual) (0.00-0.70) 10^3/uL Basophils # (Manual) (0.00-0.10) 10^3/uL Sodium 138 (136-145) mmol/L Potassium 4.0 (3.5-5.1) mmol/L Chloride 106 (98-107) mmol/L Carbon Dioxide 26.1 (21.0-32.0) mmol/L Anion Gap 9.9 BUN 17.0 (7.0-18.0) mg/dL Creatinine 0.75 (0.70-1.30) mg/dL Est GFR ( Amer) >60 (>=60 mL/min/1.73m^2) Est GFR (Non-Af Amer) >60 (>=60 mL/min/1.73m^2) BUN/Creatinine Ratio 22.7 Glucose 126 H (74-106) mg/dL Lactate (0.4-2.0) mmol/L Calcium 8.8 (8.5-10.1) mg/dL Magnesium 1.5 L (1.8-2.4) mg/dL Total Bilirubin 3.0 H (0.2-1.0) mg/dL AST 39 H (15-37) U/L ALT 32 (16-63) U/L Alkaline Phosphatase 119 H (46-116) U/L Total Protein 5.8 L (6.4-8.2) g/dL Albumin 2.4 L (3.4-5.0) g/dL Globulin 3.4 g/dL Albumin/Globulin Ratio 0.7 Ethanol Quant mg/dL Specimen Source A.calcoaceticus-baumannii cmplx PCR (NOT DETECTE) Bacteroides fragilis (NOT DETECTE) Aleta albicans (PCR) (NOT DETECTE) Aleta auris (PCR) (NOT DETECTE) C. glabrata (PCR) (NOT DETECTE) C. krusei (PCR) (NOT DETECTE) C. parapsilosis (PCR) (NOT DETECTE) C. tropicalis (PCR) (NOT DETECTE) C. neoform/gattii (PCR) (NOT DETECTE) Enterobacterales (PCR) (NOT DETECTE) E. cloacae complex PCR (NOT DETECTE) Enterococc faecalis PCR (NOT DETECTE) Enterococc faecium PCR (NOT DETECTE) E. coli (PCR) (NOT DETECTE) H. influenzae (PCR) (NOT DETECTE) Klebsiella aerogenes (PCR) (NOT DETECTE) Klebsiella oxytoca PCR (NOT DETECTE) K. pneumoniae group (PCR) (NOT DETECTE) List. monocytogenes PCR (NOT DETECTE) N. meningitidis (PCR) (NOT DETECTE) Proteus spp. (copies/mL) (NOT DETECTE) Salmonella spp. (PCR) (NOT DETECTE) Serratia marcescens PCR (NOT DETECTE) Staphylococcus sp PCR (NOT DETECTE) Staph aureus (PCR) (NOT DETECTE) mecA/C & MREJ Resist Gene (NOT DETECTE) mecA/C-Methicil Resis Gene (NOT DETECTE) mcr-1 Colistin Res Gene PCR (NOT DETECTE) Staph epidermidis (PCR) (NOT DETECTE) Staph lugdunensis (TEM-PCR) (NOT DETECTE) S. maltophilia (PCR) (NOT DETECTE) Streptococcus sp PCR (NOT DETECTE) Strep agalactiae (PCR) (NOT DETECTE) Strep pneumoniae (PCR) (NOT DETECTE) S. pyogenes (PCR) (NOT DETECTE) P. aeruginosa (PCR) (NOT DETECTE) Lazaro/B-Vanco Res Genes (NOT DETECTE) blaIMP Car res Gene PCR (NOT DETECTE) KPC (blaKPC) Detect PCR (NOT DETECTE) NDM (blaNDM) Detect PCR (NOT DETECTE) OXA-48 Carbapenem Resis Gene (PCR) (NOT DETECTE) blaVIM Car Res Gene PCR (NOT DETECTE) CTX-M ESBL (PCR) (NOT DETECTE) Discharge Plan Discharge Chief Complaint: Skin/Abscess/Foreign Body Clinical Impression: Cellulitis Patient Disposition: Admitted As Inpatient Discharge Date/Time: 02/28/25 02:00
--- OUTSIDE RECORDS SUMMARY | 2025-02-28 00:07 | XMS_ITS | Encounter Summary ---
Author Organization [facility] Address [address] [place] [id number] Care Team Providers Care Mobile Development Manager Name Role Phone Victorino Naranjo MD Primary Care Provider Victorino Naranjo MD Primary Care Provider Victorino Naranjo MD Unavailable [phone] Lisa Lopez [facility] Unavailable [phone] Source Comments In the event this information is protected by the Federal Confidentiality of Alcohol and Drug AbusePatient Records regulations: The Federal rules restrict any use of the information to criminally investigate or prosecute any alcohol or drug abuse patient.[facility] Encounter Details Date Type Department Care Team (Latest Contact Info) Description 06/06/2004 Prob Sum Review Provider, Ccrory Social History Tobacco Use Types Packs/Day Years Used Date Smoking Tobacco: Never Assessed Sex and Gender Information Value Date Recorded Sex Assigned at Not on file Legal Sex Male 9:52 AM EST Gender Identity Not on file Sexual Orientation Not on file documented as of this encounter Plan of Treatment Not on file documented as of this encounter Visit Diagnoses Not on filedocumented in this encounter Care Teams Mobile Development Manager Relationship Specialty Start Date End Date Victorino Naranjo MD [address] [place] [address] PCP - General 06/03/02 07/17/13 Victorino Naranjo MD [address] [place] [address] PCP - General Family Medicine 07/18/13 Victorino Naranjo MD [address] [employer] [place] [address] 07/18/13 Lisa Lopez, [place] [employer] [address] [place] [address] Nurse Practitioner 12/31/23 documented as of this encounter
--- OUTSIDE RECORDS SUMMARY | 2025-02-28 00:08 | XMS_ITS | Clinical Summary ---
Author Organization [facility] Address [address] [place] [address] Care Team Providers Care [employer] Or [employer] Mate Name Role Phone Victorino Naranjo MD Primary Care Provider Victorino Naranjo MD Unavailable [phone] Lisa Lopez CODING COORDINATOR Unavailable Allergies Active Allergy Reactions Criticality Noted Date Comments Amoxicillin 02/02/2003 Medications CHOLECALCIFEROL , VITAMIN D3, MISC Take 1,250 mcg by mouth one time a week. 12/23/2023 Active folic acid 1 mg tablet Take 1 mg by mouth once daily. 07/24/2023 Active furosemide (LASIX) 20 mg tablet Take 20 mg by mouth once daily. 12/05/2022 Active lactulose 10 gram/15 mL solution Take 30 mL by mouth four times a day as needed. 12/29/2023 Active mycophenolate Mofetil (CELLCEPT) 500 mg tablet Take 1 tablet by mouth every 12 hours. 12/07/2023 Active naloxone 4 mg/actuation nasal spray (NARCAN) 1 [place] by nasal (alternating ) route. 10/28/2023 Active oxyCODONE ir (OXYIR) 5 mg capsule Take 5 mg by mouth every 6 hours as needed. 02/18/2023 Active potassium chloride ER (KLOR-CON) 20 mEq tablet Take 1 tablet by mouth once daily. 11/14/2022 Active spironolactone (ALDACTONE) 50 mg tablet Take 50 mg by mouth. 12/16/2022 Active sulfamethoxazol e-trimethoprim (BACTRIM DS) 800-160 mg per tablet Take 1 tablet by mouth. 07/23/2023 Active ursodiol (ACTIGALL) 300 mg capsule Take 1 capsule by mouth every 12 hours. 12/23/2023 Active Active Problems Problem Noted Date Diagnosed Date Fracture of transverse process of lumbar vertebr a 08/24/2013 Lumbar compression fracture 08/24/2013 Lumbar transverse process fracture 08/01/2013 Elevated liver enzymes 11/30/2011 Vitamin D deficiency-severe 10/30/2011 HLA B27 (HLA B27 positive) 10/29/2011 Backache, unspecified 07/06/2003 Back pain Resolved Problems Problem Noted Date Diagnosed Date Resolved Date Ankylosing spondylitis 07/06/200310/29 Family History Medical History Relation Comments Diabetes Father Cancer Paternal Grandmother unknown Relation Status Comments Father Alive Mother Alive Paternal Grandmother Social History Tobacco Use Types Packs/Day Years Used Date Smoking Tobacco: Former Cigarettes 0 09/17/2006 - 09/17/2008 Tobacco Cessation:Counseling Given: Not Answered Comments:Once every couple of weeks Alcohol Use Standard Drinks/Week Comments Yes 6 (1 standard drink = 0.6 oz pur e alcohol) Area Deprivation Index Answer Date Óscar rded National Score (1-100), lower number is lower ri sk 62 12/30/2023 State Score (1-10), lower number is lower risk 4 12/30/2023 Data from: https://www.neighborhoodatlas.medicine.[facility].edu/. Last address used for calculation [address] 12/30/2023 Sex and Gender Information Value Date Recorded Sex Assigned at Not on file Legal Sex Male 9:52 AM EST Gender Identity Not on file Sexual Orientation Not on file Last Filed Vital Signs Vital Sign Reading Time Taken Comments Blood Pressure 126/84 08/24/2013 10:04 AM EST Pulse 68 10/29/2011 11:58 AM EST Temperature - - Respiratory Rate - - Oxygen Saturation - - Inhaled Oxygen Concentration - - Weight 70.3 kg (155 lb) 08/24/2013 10:04 AM EST Height 170.2 cm (5' 7 ) 08/24/2013 10:04 AM EST Body Mass Index 24.28 08/24/2013 10:04 AM EST Plan of Treatment Health Maintenance Due Date Last Done Comments Anxiety Screening 2002 Depression Screening 2002 HIV Screening 2002 DTaP,Tdap,Td Vaccine (1 - Tdap) 2003 Pneumococcal Vaccine (1 of 2 - PCV) 2003 Shingrix Vaccine (1 of 2) 2003 Covid-19 Vaccine (3 - Modern a risk series) 02/05/2021 01/08/2021, 12/11/2020 Hepatitis B Vaccine (2 of 3 - 19+ 3-dose series) 09/11/2022 08/14/2022 Influenza Vaccine (Season Ended) 2025 Lipid Screening 01/08/2027 01/08/2022 Hepatitis C Screening Completed 01/08/2022 , 01/08/2022, 10/29/2011 Procedures Procedure Name Priority Date/Time Associated Diagnosis Comments HEP REMOTE PANEL BL Routine 10/29/2011 1 2:56 PM EST Pain in finger Knee pain, bilateral from Last 3 Months or Most Recently Relevant to Health Maintenance Results * HEP REMOTE PANEL BL (10/29/2011 12:56 PM EST) Hep B Core Ab, Total Negative NEGAT [facility] Hep C Antibody IA Negative NEGAT [facility] HBsAg Negative NEGAT [facility] Hep B Surface Ab, Qual Negative NEGAT [facility] Comment: A negative Hepatitis B Surface Antibody is indicative of: 1)no prior exposure to HBV, 2)lack of antibody response to an acute or chronic HBV infection, 3)lack of antibody response to HBV vaccination, or, 4)loss of immunity that followed either vaccination or infection. Blood specimen (specimen) BLOOD SPECIMEN / Unknown 10/29/2011 12:56 PM EST 10/29/2011 1:04 PM EST us Cash Art MD LABORATORY Final Resul t [facility] [address] [place] [address] from Last 3 Months or Most Recently Relevant to Health Maintenance Insurance [employer] PPO Care Teams Ship [employer] Mate Relationship Specialty Start Date End Date Victorino Naranjo MD [address] [place] [address] PCP - General Family Medicine 07/18/13 Victorino Naranjo MD [address] [place] [address] 07/18/13 Lisa Lopez, CODING COORDINATOR [address] [facility] [address] [id number] Nurse Practitioner 12/31/23
--- OUTSIDE RECORDS SUMMARY | 2025-02-28 00:12 | XMS_ITS | CCD ---
Author Organization [facility] Inform ion Partnership [facility] [place] Care Team Providers Care Labor Utilization Superintendent Name Role Phone Link, Colby Bharat Primary Care Physician Unavailable Primary Care Provider Unavailabl e Unavailable Primary Care Provider Unavailabl e Unavailable Primary Care Provider Unavailabl e Theo Burks MD Primary Care Provider Abbey Alvarez MD Unavailable Gricelda SILVESTRE, Saskia Unavailable [phone] Theo Burks MD Primary Care Provider Abbey Alvarez MD Unavailable Gricelda SILVESTRE, Saskia Unavailable Marcello Ibanez MD Unavailable Gricelda SILVESTRE, Saskia Unavailable THEO BURKS Primary Care Physician Unavaila ble NONE, XXXX Primary Care Physician Unavailab Jarrod Nettles Unavailable Loreta Cummings Primary Care Physician Josiane Mccullough MD Primary Care Provider Josiane Mccullough MD Unavailable JOSIANE MCCULLOUGH Primary Care Unavailab MARGARET Justice Attending Unavailable Ella Gonzales Attending Unavailable Ella Gonzales Admitting Unavailable Loreta Cummings Referring Unavailable JERRELL GonzalesPCNP-BC Ella Polk Attending U navailable ELMER Gonzales-BC Ella Polk Admitting U navailable ABDI GonzalesNP-BC Ella Polk Attending U navailable JERRELL GonzalesPCNP-BC Ella Polk Admitting U navailable Dem[place], [facility] Ella Polk Attending U navailable Demboske, [facility] Ella Polk Attending U navailable Demboske, [facility] Ella Polk Referring U navailable LORETA CUMMINGS Primary Care Unavailable SINDHU, MOHAMED F Admitting Unavailable SINDHU, MOHAMED F Attending Unavailable MAGED BOLTON Attending Unavailable LORETA CUMMINGS Primary Care Unavailable SINDHU, MOHAMED F Attending Unavailable SINDHU, MOHAMED F Referring Unavailable LORETA CUMMINSG Primary Care Unavailable Kavon Lu Attending Unavailable Tabitha, Kavon Admitting Unavailable Mario Evans Admitting Unavaila ble Mario Evans Attending Unavaila ble Bryannamini, Mario Xiong Referring Unavaila THEO Ley Primary Care Unavailable TANVIR BLACK Referring Unavailable PROVIDER, UNKNOWN Attending Unavailable PROVIDER, UNKNOWN Admitting Unavailable Kavon Lu Attending Unavailable Tabitha, Kavon Admitting Unavailable Loreta Cummings Attending Unavailable Loreta Cummings Attending Unavailable Loreta Cummings Attending Unavailable Ella Gonzales Referring Unavailable Kavon Lu Attending Unavailable Loreta Cummings Referring Unavailable Marc Liz Attending Unavailable Tabitha, Kavon Admitting Unavailable Kavon Lu Attending Unavailable Loreta Cummings Admitting Unavailable Loreta Cummings Primary Care Physician [phone] Kavon Lu Attending Unavailable Tabitha Kavon Admitting Unavailable Vic Carrion Primary Care Physician Kavon Lu Attending Unavailable Mario Evans Referring Unavaila ble Mario Evans Admitting Unavaila ble BryannaminMario montano Attending Unavaila ble SarminiMario Attending Unavaila ble Unavailable Primary Care Provider UnavailLoreta Coffman Primary Care Provide r Mario Evans Admitting Unavaila ble Mario Evans Attending Unavaila ble Sarmini, Martin Talal Referring Unavaila ble Sarmini, Martin Talal Admitting Unavaila ble Sarmini, Martin Talal Attending Unavaila ble Sarmini, Martin Talal Referring Unavaila ble Evelio Carr Admitting Unavailable Evelio Carr Attending Unavailable Vic Ramos Referring Unavailable Vic Ramos Attending Unavailable Evelio Carr Attending Unavailable Evelio Carr Referring Unavailable Evelio Carr Admitting Unavailable Adamowicz, Kavon Admitting Unavailable Adamowicz, Kavon Attending Unavailable Mario Evans Attending Unavaila Ella Fletcher Admitting Unavailable Ella Gonzales Attending Unavailable Loreta Cummings Admitting Unavailable Loreta Cummings Attending Unavailable Kristine Cummingsbedari Zuniga Admitting Unavailable Mario Evans Attending Unavaila Loreta Pinedo Attending Unavailable Loreta Cummings Attending Unavailable Loreta Cummings Attending Unavailable Loreta Cummings Admitting Unavailable Loreta Cummings Attending Unavailable Kristine Cummingsbedari Zuniga Referring Unavailable Vic Ramos Attending Unavailable Adamowicz, Kavon Attending Unavailable Adamowicz, Kavon Admitting Unavailable Adamowicz, Kavon Attending Unavailable Adamowicz, Kavon Admitting Unavailable Keith Patricia Admitting Unavailable Keith Patricia Attending Unavailable Beronica Sadie Admitting Unavailable Vic Ramos Referring Unavailable Sadie Loco Attending Unavailable Vic Ramos Referring Unavailable Evelio Carr Admitting Unavailable Evelio Carr Attending Unavailable Vic Ramos Referring Unavailable Sadie Loco Attending Unavailable Sadie Loco Admitting Unavailable Sarmini, Martin Talal Referring Unavaila ble Sarmini, Martin Talal Admitting Unavaila ble Sarmini, Martin Inga Attending Unavaila Evelio Alston Attending Unavailable Evelio Carr Referring Unavailable Sadie Loco Attending Unavailable Beronica Sadie Referring Unavailable Beronica Sadie Admitting Unavailable Keith Patricia Attending Unavailable Vic Ramos Attending Unavailable Noreen Locoanda Admitting Unavailable Sadie Loco Attending Unavailable Juliet MULTANI, Cristina Primary Care Provider Evelio Carr DO Unavailable KENN HICKEY Attending Unavailable EVELIO CARR Referring Unavailable Allergies Allergy Classification Reported Allergen(s) Allergy Type Date of Onset Reaction(s) Facility Penicillins (antibiotic) (2 sources) Amoxicillin; Translations: [amoxicillin] Drug Allergy Unknown (qualifier value) [facility] Perflutren (1 source) Perflutren; Translations: [perflutren] Drug Allergy Back Pain [facility] (20 sources) Amoxicillin; Translations: [amoxicillin] Drug Allergy 02-03-20 03 Unknown (qualifier value), Hives [facility] (20 sources) Penicillin; Translations: [penicillin] Drug Allergy 04-14-20 Other (See Comments) [facility] (1 source) Substance with penicillin structure and antibacterial mechanism of action (substance) Drug allergy Unknown [employer] Other (20 sources) Perflutren; Translations: [perflutren] Drug Allergy 04-14-20 pain [facility] (1 source) PERFLUTREN LIPID MICROSPHERES; Translations: [PERFLUTREN LIPID MICROSPHERES] Propensity to adverse reactions to drug (disorder) 04-14-20 [facility] (1 source) Iodinated Contrast Media Propensity to adverse reactions to drug 04-14-20 pain [facility] Medications Current Medications Medication Drug Class(es) Dates Sig (Normalized) Sig (Original) bifidobacterium-la ctobacillus oral tablet (12 sources) Start: 04-29-2024 bifidobacterium-l actobacillus oral tablet 1 tab(s), Oral, Daily, 90 tab(s), Refill(s) 0, [facility] #[id number], 170, cm, 04/29/24 9:16:00 EDT, Height/Length Dosing, 70.1, kg, 04/29/24 9:16:00 EDT, Weight Dosing Start Date: 04/29/24 Status: Ordered carvedilol 6.25 mg oral tablet (13 sources) alpha-Adrenergic Melvin, beta-Adrenergic Melvin Start: 10-05-2024 take 1 tablet by mouth twice daily Coreg 6.25 mg Tab 6.25 mg = 1 tab(s), Oral, BID, # 180 tab(s), Refills(s) 3, Pharmacy: [id number], 170, cm, 10/05/24 9:01:00 EST, Height/Length Dosing, 78.5, kg, 10/05/24 9:11:00 EST, Weight Dosing Start Date: 10/05/24 Status: Ordered Start: 06-09-2024 take 1 tablet by patricia twice daily Coreg 6.25 mg Tab 6.25 mg = 1 tab(s), Oral, BID, # 60 tab(s), Refills(s) 3, Pharmacy: [facility] #[id number], 170, cm, 06/09/24 13:35:00 EDT, Height/Length Dosing, 74.2, kg, 06/09/24 13:35:00 EDT, Weight Dosing Start Date: 06/09/24 Status: Ordered cephalexin 500 mg oral capsule (9 sources) Cephalosporin Antibacterial Start: 09-21-2023 End: 09-26-2023 take 1 capsule by mouth every eight hours Keflex 500 mg Cap 500 mg = 1 cap(s), Oral, q8hr, X 5 day(s), # 15 cap(s), Refills(s) 0, [id number], 170, cm, 09/21/23 14:28:00 EST, Height/Length Dosing, [...] 08/22/2022 Active cholecalciferol 1.25 mg oral capsule (20 sources) Vitamin D Start: 12-23-2023 cholecalcifero l 50,000 intl units oral capsule 1,250 mcg = 1 cap(s), Oral, q7day, # 12 cap(s), Refills(s) 1, [facility]: [facility] #[id number], 170, cm, 12/23/23 11:10:00 EDT, Height/Length Dosing, 70.3, kg, 12/23/23 11:10:00 EDT, Weight Dosing Start Date: 12/23/23 Status: Ordered take 1 capsule by mouth every we ek cholecalciferol (VITAMIN D3) 50,000 units capsule Take 1 capsule (50,000 Units total) by mouth once a week. Active CHOLECALCIFEROL, VITAMIN D3, MISC (1 source) Start: [...] 28 cap(s), Refills(s) 0, [facility]: [facility] #[id number], 170, cm, 02/18/23 7:51:00 EDT, Height/Length Dosing, 77, kg, 02/18/23 7:51:00 EDT, Weight Dosing Start Date: 02/18/23 Stop Date: 02/25/23 Status: Ordered Start: 02-17-2022 take 2 capsules by m outh four times daily clindamycin 150 mg Cap 300 mg = 2 cap(s), Oral, QID, # 56 cap(s), Refills(s) 0, Pharmacy: [facility], 170.2, cm, 02/17/22 12:34:00 EDT, Height/Length Dosing, 78, kg, 02/17/22 12:34:00 EDT, Weight Dosing Start Date: 02/17/22 Status: Ordered Start: 02-17-2022 End: 12-09-2022 clindamycin (CLEOCIN) 150 MG capsule Take by [...] 50 g 0 01/17/2022 04/17/2022 Active doxycycline monohydrate 100 mg oral capsule (10 sources) Tetracycline-class Drug Start: 04-16-2024 take 1 capsule by mouth twice daily doxycycline monohydrate 100 mg oral capsule TAKE 1 CAPSULE BY MOUTH TWICE DAILY FOR 14 DAYS Start Date: 04/29/24 Status: Ordered Start: 10-01-2022 End: 10-11-2022 take 1 capsule [...] End: 07-13-2023 take 1 tablet by mouth in the morning folic acid (FOLVITE) 1 mg tablet Take 1 tablet (1 mg total) by mouth in the morning. 07/13/2023 Active Start: 01-08-2022 End: 01-15-2022 take 1 mg intravenously once daily 1 mg, Intravenous P ush, DAILY, First dose on Thu01/08/22 at 1430, Until Discontinued furosemide 20 mg oral tablet (20 sources) Loop Diuretic Start: 08-19-2024 take 1 tablet by mouth once daily as needed for edema furosemide 20 mg Tab = 1 tab(s), Oral, Daily, PRN Edema, Refills(s) 0 Start Date: 08/19/24 Status: Ordered Start: 04-29-2024 take 1 tablet by patricia th once daily furosemide 20 mg Tab 20 mg = 1 tab(s), Oral, Daily, # 90 tab(s), Refills(s) 3, Pharmacy: [facility] #[id number], 170, cm, 04/29/24 9:16:00 EDT, Height/Length Dosing, 70.1, kg, 04/29/24 9:16:00 EDT, Weight Dosing Start Date: 04/29/24 Status: Ordered Start: 08-25-2022 End: 02-08-2024 take 1 tablet by mouth once daily furosemide 20 mg Tab 20 mg = 1 tab(s), Oral, Daily, Refills(s) 0, diuretic/water pill Start Date: 07/24/23 Status: Ordered gabapentin 600 mg oral tablet (15 sources) Anti-epileptic Agent Start: 11-14-2024 End: 12-14-2024 take 2 tablets by mouth three times daily gabapentin 600 mg Tab 1,200 mg = 2 tab(s), Oral, TID, X 30 day(s), # 180 tab(s), Refills(s) 0, Pharmacy: [facility] #[facility], 170, cm, 10/26/24 10:30:00 EST, Height/Length Dosing, 78.9, kg, 10/26/24 10:30:00 EST, Weight Dosing Start Date: 11/14/24 Stop Date: 12/14/24 Status: Ordered Start: 10-26-2024 gabapentin 300 mg Cap See Instructions, take per office provided instructions until you are taking 2 tablets three times per day, # 120 tab(s), Refills(s) 0, Pharmacy: [facility] #37, 170, cm, 10/26/24 10:30:00 EST, Height/Length Dosing, 78.9, kg, 10/26/24 10:30:00 EST, Weight Dosing Start Date: 10/26/24 Status: Ordered Start: 07-24-2023 take 1 capsule by [facility] twice daily gabapentin 300 mg Cap 300 mg = 1 cap(s), Oral, BID, # 60 cap(s), Refills(s) 0, Pharmacy: [facility] #[id number], 170, cm, 07/24/23 7:59:00 EST, Height/Length Dosing, [...] Capsule 3 02/09/2023 Active hydrOXYzine HCl Active Lactulose (20 sources) Osmotic Laxative Start: 08-19-2024 lactulose (la ctulose 10 g/15 mL Oral Syrup) lactulose (lactulose 10 g/15 mL Oral Syrup) Start Date: 08/19/24 Status: Ordered Start: 05-31-2024 take 30 mL by mouth four times daily lactulose 10 g/15 mL Oral Syrup See Instructions, TAKE 30 ML BY MOUTH FOUR TIMES DAILY, # 3,600 mL, Refills(s) 3, Pharmacy: [facility] #[id number], 170, cm, 05/12/24 15:39:00 EDT, Height/Length Dosing, 73, kg, 05/12/24 15:39:00 EDT, Weight Dosing Start Date: 05/31/24 Status: Ordered Start: 02-24-2024 take 20 g by mouth f our times daily lactulose 10 g/15 mL Oral Syrup 20 gm = 30 mL, Oral, QID, # 3,600 mL, Refills(s) 1, Pharmacy: [facility] #[id number], 170, cm, 01/27/24 9:52:00 EDT, Height/Length Dosing, 74.6, kg, 01/27/24 9:52:00 EDT, Weight Dosing Start Date: 02/24/24 Status: Ordered Start: 10-28-2023 take 20 g by mouth f our times daily lactulose 10 g/15 mL Oral Syrup 20 gm = 30 mL, Oral, QID, # 3,600 mL, Refills(s) 1, Pharmacy: [facility] #[id number], 160, cm, 10/28/23 9:43:00 EST, Height/Length Dosing, [...] dose on Thu01/08/22 at 1430, Until Discontinued take 15 mL by mouth four times daily as needed lactulose (CHRONULAC) 10 gram/15 mL solution Take 15 mL (10 g total) by mouth 4 (four) times a day as needed. Active Lactulose 10 GM/ 15ML Oral for 7 Days Active levoFLOXacin 750 mg oral tablet (8 sources) Quinolone Antimicrobial Start: 04-16-2024 take 1 tablet by mouth once daily levofloxacin 750 mg Tab TAKE 1 TABLET BY MOUTH DAILY FOR 14 DAYS Start Date: 04/29/24 Status: Ordered lidocaine 0.05 mg/mg medicated patch (20 sources) Antiarrhythmic, Amide Local Anesthetic Start: 08-26-2023 lidocaine Top 5% film Patch 1 patch(es), Topical, Daily, 30 patch(es), Refill(s) 0, apply 12 hours on and 12 hours off daily remove patches after 12 hours may substitute for 4 % patches if insurance coverage issue, [facility] #[id number], 170, cm, 08/26/23 9:52:00 EST, Height/Length Dosing, 68.5, kg, 08/26/23 9:52:00 EST, Weight Dosing Start Date: 08/26/23 Status: Ordered Start: 08-26-2023 apply 28.5 g topical ly twice daily lidocaine 3% topical gel See Instructions, 28.5 gm, Refill(s) 0, Topical BID apply a thin film to the affected areas may substitute for 2 % if this is not available, [facility] #[id number], 170, cm, 08/26/23 9:52:00 EST, Height/Length Dosing, 68.5, kg, 08/26/23 9:52:00 EST, Weight Dosing Start Date: 08/26/23 Status: Ordered Start: 12-15-2022 End: 03-06-2023 apply 1 dose transdermal route every twenty-four hours lidocaine (LIDODERM) 5 % patch Indications: Rib pain Place 1 Patch on the skin every 24 hours. 10 Patch 3 03/06/2023 Active magnesium citrate (10 sources) Start: 08-19-2024 magnesium citr ate Oral, Refill(s) 0, Constipation Start Date: 08/19/24 Status: Ordered Start: 08-19-2024 magnesium citr ate Oral, Refill(s) 0 Start Date: 08/19/24 Status: Ordered meloxicam 7.5 mg oral tablet (6 sources) Nonsteroidal Anti-inflammatory Drug Start: 05-23-2024 take 1 tablet by mouth once daily at mealtime meloxicam 7.5 mg Tab See Instructions, TAKE 1 TABLET BY MOUTH DAILY TAKE WITH FOOD AND SPARINGLY, # 30 tab(s), Refills(s) 2, Pharmacy: [facility] #[id number], 170, cm, 05/12/24 15:39:00 EDT, Height/Length Dosing, 73, kg, 05/12/24 15:39:00 EDT, Weight Dosing Start Date: 05/23/24 Status: Ordered Start: 04-29-2024 take 1 tablet by patricia th once daily at mealtime meloxicam 7.5 mg Tab 7.5 mg = 1 tab(s), Oral, Daily, take with food and sparingly, # 30 tab(s), Refills(s) 0, [id number], 170, cm, 04/29/24 9:16:00 EDT, Height/Length Dosing, 70.1, kg, 04/29/24 9:16:00 EDT, Weight Dosing Start Date: 04/29/24 Status: Ordered Milk thistle extract (7 sources) Start: 07-24-2023 [...] Start Date: 07/24/23 Status: Ordered Start: 07-24-2023 [facility] Presc ription See Instructions, Reading SAP Dressing 4 x 4 dressing Start Date: 07/24/23 Status: Ordered Start: 07-24-2023 [facility] D[facility] Presc ription See Instructions, Muscle & joint balm CBD 880mg Start Date: 07/24/23 Status: Ordered [facility] Prescription (7 sources) Start: 07-24-2023 [facility] Prescription Bee Venom, Daily Start Date: 07/24/23 [...] adjustment) naloxone hydrochloride 40 mg/ml nasal spray (20 sources) Opioid Antagonist Start: 10-05-2024 Narcan 4 mg/ 0.1 mL nasal spray 4 mg, Nasal, As Directed, for suspected overdose symptoms, # 1 kit(s), Refills(s) 0, Pharmacy: [facility] #[id number], 170, cm, 10/05/24 9:01:00 EST, Height/Length Dosing, 78.5, kg, 10/05/24 9:11:00 EST, Weight Dosing Start Date: 10/05/24 Status: Ordered Start: 10-28-2023 naloxone 4 mg/ actuation nasal spray (NARCAN) 1 [place] by nasal (alternating) route. 0 10/28/2023 Active Start: 10-28-2023 Narcan 4 mg/0. 1 mL nasal spray 4 mg, Nasal, As Directed, for suspected overdose symptoms, # 1 kit(s), Refills(s) 0, Pharmacy: [facility] #[id number], 160, cm, 10/28/23 9:43:00 EST, Height/Length Dosing, 69.1, kg, 10/28/23 9:43:00 EST, Weight Dosing Start Date: 10/28/23 Status: Ordered naloxone (NARCAN) 4 mg/actuation spray,non-aerosol nasal spray (3 sources) Start: 10-28-2023 naloxone (NARCAN) 4 mg/actuation spray,non-aerosol nasal spray Administer 1 spray (4 mg total) into each nostril as needed. 10/28/2023 Active ondansetron 4 mg oral tablet (20 sources) Serotonin-3 Receptor Antagonist Start: 05-31-2024 take 1 tablet by mouth three times daily as needed for nausea Zofran ODT 4 mg Tab 4 mg = 1 tab(s), Oral, TID, PRN Nausea, # 60 tab(s), Refills(s) 0, Pharmacy: [facility] #[id number], 170, cm, 05/12/24 15:39:00 EDT, Height/Length Dosing, 73, kg, 05/12/24 15:39:00 EDT, Weight Dosing Start Date: 05/31/24 Status: Ordered Start: 12-23-2023 take 1 tablet by patricia th three times daily as needed for nausea Zofran ODT 4 mg Tab 4 mg = 1 tab(s), Oral, TID, PRN Nausea, # 60 tab(s), Refills(s) 0, Pharmacy: [facility] #[id number], 170, cm, 12/23/23 11:10:00 EDT, Height/Length Dosing, 70.3, kg, 12/23/23 11:10:00 EDT, Weight Dosing Start Date: 12/23/23 Status: Ordered Start: 10-28-2023 take 1 tablet by patricia th three times daily as needed for nausea Zofran ODT 4 mg Tab 4 mg = 1 tab(s), Oral, TID, PRN Nausea, # 60 tab(s), Refills(s) 0, Pharmacy: [facility] #[id number], 160, cm, 10/28/23 9:43:00 EST, Height/Length Dosing, [...] Thu01/14/22 at 0843, Until Discontinued, Vomiting, Nausea take 1 tablet by patricia th every eight hours as needed ondansetron ODT (ZOFRAN ODT) 4 mg disintegrating tablet Dissolve 1 tablet (4 mg total) on tongue every 8 (eight) hours as needed. Active oxyCODONE hydrochloride 5 mg oral tablet (20 sources) Opioid Agonist Start: 10-05-2024 take 0.5 tablet by mouth every six hours as needed for pain oxyCODONE 5 mg Tab 0.5 tab, Oral, q6hr, PRN for pain, for leg pain- severe pain only, # 28 tab(s), Refills(s) 0, Pharmacy: [facility] #[id number], 170, cm, 10/05/24 9:01:00 EST, Height/Length Dosing, 78.5, kg, 10/05/24 9:11:00 EST, Weight Dosing Start Date: 10/05/24 Status: Ordered Start: 01-27-2024 take 1 tablet by patricia th every six hours as needed oxyCODONE (ROXICODONE) 5 mg immediate release tablet Take 1 tablet (5 mg total) by mouth every 6 (six) hours as needed. 01/27/2024 Active Start: 01-27-2024 take 0.5 tablet by m outh every six hours as needed for pain oxyCODONE 5 mg Tab 0.5 tab, Oral, q6hr, PRN for pain, for leg pain- severe pain only, # 28 tab(s), Refills(s) 0, Pharmacy: [facility] #[id number], 170, cm, 01/27/24 9:52:00 EDT, Height/Length Dosing, 74.6, kg, 01/27/24 9:52:00 EDT, Weight Dosing Start Date: 01/27/24 Status: Ordered Start: 10-28-2023 take 0.5 tablet by m outh every six hours as needed for pain oxyCODONE 5 mg Tab 0.5 tab, Oral, q6hr, PRN for pain, for leg pain, # 28 tab(s), Refills(s) 0, Pharmacy: [facility] #[id number], 160, cm, 10/28/23 9:43:00 EST, Height/Length Dosing, 69.1, kg, 10/28/23 9:43:00 EST, Weight Dosing Start Date: 10/28/23 Status: Ordered Start: 02-18-2023 End: 02-21-2023 take 1 capsule by mouth every six hours as needed oxyCODONE ir (OXYIR) 5 mg capsule Take 5 mg by mouth every 6 hours as needed. 0 02/18/2023 Active pediatric multivitamin-iron tablet,chewable (2 sources) Start: 07-13-2023 pediatric multivitamin-iron tablet,chewable Chew 1 tablet and swallow in the morning. 07/13/2023 Active phosphorated carbo,dext-fruct, (NAUSEA RELIEF ORAL) (1 source) promethazine hydrochloride 25 mg oral tablet (6 sources) Phenothiazine Start: 04-29-2024 take 1 tablet by mouth every six hours as needed for nausea promethazine 25 mg Tab 25 mg = 1 tab(s), Oral, q6hr, PRN for nausea/vomiting, # 30 tab(s), Refills(s) 0, Pharmacy: [facility] #[id number], 170, cm, 04/29/24 9:16:00 EDT, Height/Length Dosing, 70.1, kg, 04/29/24 9:16:00 EDT, Weight Dosing Start Date: 04/29/24 Status: Ordered spironolactone 50 mg oral tablet (20 sources) Aldosterone Antagonist Start: 11-21-2024 End: 11-16-2025 take 1 tablet by mouth once daily spironolactone 50 mg Tab 50 mg = 1 tab(s), Oral, Daily, X 90 day(s), # 90 tab(s), Refills(s) 3, Pharmacy: [facility] #[id number], 170, cm, 11/21/24 9:32:00 EDT, Height/Length Dosing, 77.5, kg, 11/21/24 9:32:00 EDT, Weight Dosing Start Date: 11/21/24 Stop Date: 11/16/25 Status: Ordered Start: 01-20-2024 take 1 tablet by patricia th once daily spironolactone 50 mg Tab 50 mg = 1 tab(s), Oral, Daily, # 90 tab(s), Refills(s) 3, Pharmacy: [facility] #[id number], 170, cm, 12/23/23 11:10:00 EDT, Height/Length Dosing, [...] day(s), 28 tab(s), Refill(s) 0, [facility] #[id number], 170, cm, 03/22/23 20:14:00 EDT, Height/Length Dosing, [...] Until Discontinued ursodiol 300 mg oral capsule (6 sources) Bile Acid Start: 12-23-2023 take 1 capsule by mouth every twelve hours ursodiol (ACTIGALL) 300 mg capsule Take 1 capsule by mouth every 12 hours. 0 12/23/2023 Active Start: 12-23-2023 take 1 capsule by mo [facility] twice daily ursodiol 300 mg Cap 300 mg = 1 cap(s), Oral, BID, # 60 cap(s), Refills(s) 1, Pharmacy: [facility] #[id number], 170, cm, 12/23/23 11:10:00 EDT, Height/Length Dosing, 70.3, kg, 12/23/23 11:10:00 EDT, Weight Dosing Start Date: 12/23/23 Status: Ordered Zofran ODT 4 mg Tab-Dis (20 sources) Start: 09-30-2023 take 1 tablet by mouth every eight hours as needed for nausea Zofran ODT 4 mg Tab-Dis 4 mg = 1 tab(s), Oral, q8hr, PRN Nausea/Vomiting, # 60 tab(s), Refills(s) 12, Pharmacy: [facility] #[id number], 170, cm, 09/30/23 9:19:00 EST, Height/Length Dosing, 69, kg, 09/30/23 9:19:00 EST, Weight Dosing Start Date: 09/30/23 Status: Ordered Start: 03-22-2023 take 1 tablet by [facility] every eight hours as needed for nausea Zofran ODT 4 mg Tab-Dis 4 mg = 1 tab(s), Oral, q8hr, PRN Nausea/Vomiting, # 20 tab(s), Refills(s) 0, Pharmacy: [facility] #[id number], 170, cm, 03/22/23 20:14:00 EDT, Height/Length Dosing, [...] BP cuff device and appropriate size please (20 sources) Start: 10-28-2023 BP cuff device and [...] on 01/11/22 at 1700, Last dose on Thu01/12/22 at 1700 Start: 01-08-2022 End: 01-11-2022 2,000 [...] 05/06/2022 Discontinued (Therapy completed) 168 hr cloNIDine 0.25640 mg/hr transdermal system (1 source) Central alpha-2 [...] tablet by mouth twice daily Potassium Chloride (Znm-Qddn-Uxv M20) 20 mEq oral tablet, extended release 20 mEq = 1 tab(s), Oral, BID, # 30 tab(s), Refills(s) 3, Pharmacy: [facility] #[id number], 170, cm, 07/24/23 7:59:00 EST, Height/Length Dosing, 73.5, kg, 07/24/23 7:59:00 EST, Weight Dosing Start Date: 07/24/23 Status: Ordered Start: 11-14-2022 take 1 tablet by [facility] once daily potassium chloride SA (K-DUR) 20 [...] Date Documented Da te Episodic/Chronic Abdominal pain (20 sources) Left lower quadrant pain; Translations: [Left [...] of unspecified site] Episodic Biliary tract disease (20 sources) Cholelithiasis without obstruction; Translations: [Calculus of gallbladder without cholecystitis without obstruction] Onset: 4 Episodic Cardiac and circulatory congenital anomalies (5 sources) Vascular disorder; Translations: [Arteriovenous malformation, site unspecified] Onset: 4 04-14-2024 Chronic Chronic ulcer of skin (4 sources) Non-pressure [...] Onset: 2 Chronic Deficiency and other anemia (3 sources) Hereditary hemolytic anemia; Translations: [Hereditary hemolytic anemia, unspecified] Onset: 3 Chronic Deficiency and other anemia (1 source) Pancytopenia; Translations: [Other pancytopenia] Onset: 4 Chronic Deficiency and other anemia (20 sources) Anemia; Translations: [Anemia, unspecified] Onset: 2 Episodic Deficiency and other anemia (20 sources) Iron deficiency anemia; Translations: [Iron deficiency anemia, unspecified] Onset: 4 Episodic Deficiency and other anemia (20 sources) Megaloblastic anemia; 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, [...] initial encounter] Onset: 3 Episodic Esophageal disorders (20 sources) Esophageal varices without bleeding; Translations: [Esophageal varices without bleeding] Onset: 4 Chronic Essential hypertension (20 sources) Essential hypertension; Translations: [Essential (primary) hypertension] Onset: 4 Chronic Fluid and electrolyte disorders (20 sources) Acidosis; Translations: [Acidosis] Onset: 2 Episodic Genitourinary symptoms and ill-defined conditions (20 sources) Dysuria; Translations: [Dysuria] Episodic Headache; including migraine (20 sources) Headache; Translations: [Headache] Onset: 4 10-07-2023 Episodic Immunizations and screening for infectious [...] vomiting; Translations: [Nausea with vomiting, unspecified] Onset: 4 Episodic Nonspecific chest pain (1 source) Precordial pain; Translations: [Precordial pain] Onset: 4 Episodic Nutritional deficiencies (20 sources) Vitamin D deficiency; Translations: [Vitamin D deficiency, unspecified] Onset: 2 08-25-2022 Chronic Open wounds of extremities (1 source) Unspecified open wound, right lower leg, initial encounter Episodic Other aftercare (4 sources) Antibiotic prophylaxis indicated; Translations: [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] Episodic Other aftercare (5 sources) Drug therapy status; Translations: [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] Episodic Other aftercare (1 source) Long-term current use of drug therapy; Translations: [Other mcc (current) drug therapy] Onset: 3 Episodic Other circulatory disease (1 source) Elevated blood-pressure reading without diagnosis of hypertension; Translations: [Elevated blood-pressure reading, without diagnosis of hypertension] Onset: 3 Episodic Other connective tissue disease (1 source) [...] unspecified site] Episodic Other connective tissue disease (13 sources) Pain in right lower limb; Translations: [Pain in right leg] Onset: 3 Episodic Other diseases of veins and lymphatics (2 sources) Lymphedema; Translations: [Lymphedema, not elsewhere classified] Onset: 4 05-12-2024 Chronic Other endocrine disorders (1 source) Hypoglycemia; Translations: [Hypoglycemia, unspecified] Chronic Other gastrointestinal disorders (20 sources) Diarrhea; Translations: [Diarrhea, unspecified] Onset: 4 12-16-2023 Episodic Other hematologic conditions (20 sources) [...] encounter] Onset: 2 Episodic Other liver diseases (20 sources) Cirrhosis of liver; Translations: [Unspecified cirrhosis of liver] Onset: 2 Chronic Other liver diseases (1 source) Hepatic fibrosis; Translations: [Liver fibrosis] Chronic Other liver diseases (20 sources) Portal hypertension; Translations: [Portal hypertension] Onset: 4 Chronic Other liver diseases (1 source) Hepatic failure; Translations: [Acute and subacute hepatic failure without coma] Onset: 2 Episodic Other liver diseases (20 sources) Elevated liver enzymes level; Translations: [Abnormal levels of other serum enzymes] Onset: 2 Episodic Other liver diseases (5 sources) Enzyme level - finding; Translations: [Abnormal levels of other serum enzymes] Onset: 3 Episodic Other lower respiratory disease (3 sources) Rib pain; Translations: [Pleurodynia] Episodic Other nervous system disorders (2 sources) Chronic pain; Translations: [Other chronic pain] 01-24-2025 Chronic Other non-traumatic joint disorders (1 source) Swelling [...] Chronic Other nutritional; endocrine; and metabolic disorders (20 sources) Overweight in adulthood with body mass index of 25 or more but less than 30; Translations: [Body mass index (BMI) 27.0-27.9, adult] Onset: 3 Episodic Other nutritional; endocrine; and metabolic disorders (4 sources) Overweight; Translations: [Overweight] Onset: 4 Episodic Other screening for suspected conditions (not mental disorders or infectious disease) (20 sources) No current problems or disability; Translations: [Coag./bleeding tests abnormal] Onset: 3 02-23-2014 Episodic Pancreatic disorders (not diabetes) (1 source) Acute pancreatitis; Translations: [Acute pancreatitis without necrosis or infection, unspecified] Onset: 2 Episodic Phlebitis; thrombophlebitis and thromboembolism (20 sources) Thrombophlebitis; Translations: [Phlebitis and thrombophlebitis of superficial vessels of unspecified lower extremity] Onset: 4 Episodic Poisoning by other medications and drugs (20 sources) Adverse reaction to drug 12-23-2023 Episodic Residual codes; unclassified (2 sources) Postprocedural state finding; Translations: [Presence of other specified functional implants] 01-24-2025 Chronic Residual codes; unclassified (2 sources) Localized edema; Translations: [Localized edema] Onset: 2 Episodic Residual codes; unclassified (2 sources) Edema of lower extremity; Translations: [Localized edema] Episodic Residual codes; unclassified (20 sources) Tobacco user; Translations: [Tobacco use] Onset: 3 Episodic Residual codes; unclassified (8 sources) Current drinker; Translations: [Alcohol use, unspecified, in remission] Onset: 3 Episodic Residual codes; unclassified (20 sources) User of smokeless tobacco 07-24-2023 Episodic Residual codes; unclassified (2 sources) Body mass index 20-24 - normal; Translations: [Body mass index (BMI) 23.0-23.9, adult] Onset: 3 Episodic Residual codes; unclassified (3 sources) Edema; Translations: [Edema, unspecified] Onset: 4 Episodic Residual codes; unclassified (20 sources) Dependent edema; Translations: [Edema, unspecified] Onset: 4 10-01-2023 Episodic Residual codes; unclassified (6 sources) Pain; Translations: [Pain, unspecified] Onset: 4 12-11-2023 Episodic Skin and subcutaneous tissue infections (20 sources) Cellulitis of right lower limb; Translations: [Cellulitis of right lower limb] Onset: 3 Episodic Spondylosis; intervertebral disc disorders; other back problems (20 sources) Backache; Translations: [Dorsalgia, unspecified] Onset: 3 Episodic Sprains and strains (1 source) Injury of shoulder and upper arm; Translations: [Strain of muscle, fascia and tendon of other parts of biceps, left arm, initial encounter] Episodic Superficial injury; contusion (1 source) Insect bite, nonvenomous, of thigh; Translations: [Insect bite (nonvenomous), right thigh, initial encounter] Onset: 3 Episodic Unclassified (20 sources) Patient encounter status 07-24-2023 Unclassified (7 sources) Serum albumin below reference range 07-24-2023 Unclassified (5 sources) Body mass index 20-24 - normal 08-26-2023 Unclassified (20 sources) Venous ulcer of lower limb 08-26-2023 Urinary tract infections (4 sources) Urinary tract infectious disease; Translations: [Urinary tract infection, site not specified] Episodic Varicose veins of lower extremity (20 sources) Varicose veins of right lower limb; Translations: [Varicose veins of right lower extremity with ulcer of unspecified site] Onset: 3 Episodic Past or Other Problems Problem Classification Problem Date Documented Date Episodic/Chronic Other aftercare (1 source) 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; Translations: [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] Onset: 10-01-2023 Episodic Other aftercare (1 source) 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; Translations: [shelter (current) use of antibiotics] Onset: 10-01-2023 Episodic Other circulatory disease (20 sources) Elevated blood pressure; Translations: [Elevated blood-pressure reading, without diagnosis of hypertension] Onset: 04-13-2024 07-24-2023 Episodic Other fractures (20 sources) Compression fracture [...] Name Value Interpretation Reference Range Facil ity Main OR Intraoperative Recor don 01-03-2025 Main OR Intraoperative Record Main OR Intraoperative Record IntraOp Document Type FTPM Summary Primary Physician: Evelio Carr DO Finalized Date/Time: 01/03/25 11:51:23 Pt. Name: WILL RALPH/Sex: 1985 Male Med Rec #: [id number] Physician: Evelio Carr DO Financial #: [id number] Pt. Type: P Room/Bed: / Admit/Disch: 01/03/25 10:20:12 - Institution: Case Times FTPM Entry 1 Patient Times In Room 01/03/25 11:40:00 Out Room 01/03/25 11:52:00 Procedure Times Start 01/03/25 11:43:00 Stop 01/03/25 11:51:00 Anesthesia Times Last Modified By: Ronda Weeks RN 01/03/25 11:51:18 Case Attendance FTPM Entry 1 Entry 2 Entry 3 Case Attendee Evelio Carr DO RN, Jennifer Liu RN Role Performed Surgeon - Primary Pickle Cutter - Primary Scrub - Primary Time In 01/03/25 11:40:00 01/03/25 11:40:00 01/03/25 11:40:00 Time Out 01/03/25 11:52:00 01/03/25 11:52:00 01/03/25 11:52:00 Procedure OTHER NERVE BLOCK(Right) OTHER NERVE BLOCK(Right) OTHER NERVE BLOCK(Right) Comments Last Modified By: Micky GREER, Ronda Weeks RN, Ronda West RN 01/03/25 11:51:19 01/03/25 11:51:19 01/03/25 11:51:19 Entry 4 Case Attendee Lisandra Sauer Role Performed Manager Business Operations Time In 01/03/25 11:40:00 Time Out 01/03/25 11:52:00 Procedure OTHER NERVE BLOCK(Right) Comments Last Modified By: Ronda Weeks RN 01/03/25 11:51:19 Perioperative Protocols FTPM Pre-Care Text: Implements protective measures prior to operative or invasive procedure, confirms identity before the operative or invasive procedure, verifies operative procedure, surgical site, and laterality Entry 1 Procedure(s) OTHER NERVE BLOCK(Right) Patient Identity Birthday, ID Band Verified (select at Check, Patient least 2): Participation Consents / H and P H&P, Surgery/Procedure Operative Site Present Verified Consent Marking Verified Surgical Site Yes Laterality Verified Yes Verified Procedure Verified Yes Correct Patient Yes Position Verified Availability Equipment, Medication, Time Out Ronda Weeks RN, Verified (If X-ray Participants Jennifer Mosley RN Applicable) Bruno Cosme DO, Bradford A. Time Out Complete 01/03/25 11:40:00 Outcomes Met? Yes Last Modified By: Ronda Weeks RN 01/03/25 11:40:46 Post-Care Text: The patient is free from signs and symptoms of injury caused by extraneous objects Allergy Information FTPM Pre-Care Text: Verifies allergies Entry 1 Allergies Reviewed? Yes Allergies Reviewed Self/Patient With Outcomes Met? Yes Last Modified By: Ronda Weeks RN 01/03/25 11:38:18 Post-Care Text: The patient received appropriate medication(s) safely administered during the perioperative period Surgical Procedures FTPM Entry 1 Procedure Description Procedure OTHER NERVE BLOCK Modifiers Right Surgeon Description Right Saphenous Nerve Block Primary Procedure Yes Primary Surgeon Evelio Carr DO Start 01/03/25 11:43:00 Stop 01/03/25 11:51:00 Anesthesia Type None Surgical Service Pain Management Wound Class 1 - Clean Last Modified By: Ronda Weeks RN 01/03/25 11:51:20 General Case Data FTPM Pre-Care Text: Classifies surgical wound, implements aseptic technique, initiates traffic control Entry 1 Case Information OR Pain Proc Room Case Level Level 2 Wound Class 1 - Clean Specialty Pain Management Preop Diagnosis G57.80 Postop Same As Preop Yes Postop Diagnosis G57.80 Outcomes Met? Yes Last Modified By: Ronda Weeks RN 01/03/25 11:40:57 Post-Care Text: The patient is free from signs and symptoms of infection Skin Assessment (Pre Procedure) FTPM Pre-Care Text: Implements protective measures to prevent skin/ tissue injury due to thermal or mechanical sources Evaluates for signs and symptoms of physical injury to skin and tissue Entry 1 Skin Integrity Intact, [place], Warm, & Skin Abnormality No Dry Outcomes Met? Yes Last Modified By: Ronda Weeks RN 01/03/25 11:39:04 Post-Care Text: The patient is free from signs and symptoms of injury caused by extraneous objects Patient Positioning FTPM Pre-Care Text: Identifies physical alterations that require additional precautions for procedure-specific positioning, verifies presence of prosthetics or corrective devices, positions the patient, evaluates the patient for signs and symptoms of injury as a result of positioning Entry 1 Procedure OTHER NERVE BLOCK(Right) Body Position Prone Feet Uncrossed? Yes Left Arm Position Resting at Side Right Arm Position Resting at Side Left Leg Position Extended Right Leg Position Extended Positioning Device Pillow Under Head Large, Safety Strap, Pillow Large Under Knees Press Points Checked Yes By Ronda Weeks RN Outcomes Met? Yes Last Modified By: Ronda Weeks RN 01/03/25 11:41:09 Post-Care Text: The patient is free from signs and symptoms of injury rel (more content not included)... Normal [facility] Main OR Preoperative Recordo n 01-03-2025 Main OR Preoperative Record Main OR Preoperative Record Holding Area Document Type FTPM Summary Primary Physician: Evelio Carr DO Finalized Date/Time: 01/03/25 10:50:35 Pt. Name: WILL RALPH./Sex: 1985 Male Med Rec #: [id number] Physician: Evelio Carr DO Financial #: [id number] Pt. Type: P Room/Bed: / Admit/Disch: 01/03/25 10:20:12 - Institution: Case Times Holding FTPM Pre-Care Text: Verifies consent for planned procedure, identifies individual values and wishes concerning care, includes family members in perioperative teaching Secures patient's records' belongings, and valuables, maintains patient's dignity and privacy, and maintains patient confidentiality Entry 1 In Holding 01/03/25 10:48:00 Outcomes Met? Yes Last Modified By: Belén Huffman RN 01/03/25 10:48:46 Post-Care Text: The patient participates in decisions affecting his or her perioperative plan of care The patient's right to privacy is maintained Surgery Checklist FTPM Entry 1 Patient Birthday, ID Band Procedure History and Physical, Identification: Check, Patient Verification: Surgical Consent, With Participation Patient NPO after Midnight: No Results Reviewed 0830 banana and diet Comments: pepper Personal Items n/a Complaints of Pain: Yes Comment: Pain Comment: 06/16 right leg pain Operative Site Yes Marking: Marked By: Dr. Carr Location: Right Saphenous Availability Equipment, Implants, Verified: X-Ray Does Patient Smoke No Patient states Yes Comment - Adult Mother- Claudia postop adult Supervision supervision available Case Cancelled in No Holding Area see comments below for reason Last Modified By: Belén Huffman RN 01/03/25 10:50:32 Finalized By: Belén Huffman RN Document Signatures Signed By: Belén Huffman RN 01/03/25 10:50 Normal [facility] Ambulatory Visit Summaryon 0 12-21-2024 Ambulatory Visit Summary Ambulatory Visit Summary WILL RALPH :1985 Visit Date:12/21/2024 Ambulatory Visit Instructions Your Diagnosis Right leg pain HTN (hypertension) BMI 26.0-26.9,adult Overweight 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 Peripheral vascular disease Your Care Team Attending Physician - Vic Carrion Primary Care Physician - Vic Carrion This Is Your Medications List Misc Prescription (BP cuff device and appropriate size please) Misc Prescription (Misc DME Prescription) Misc Prescription (Misc DME Prescription) Misc Prescription (Misc DME Prescription) carvedilol (Coreg 6.25 mg Tab) furosemide (furosemide 20 mg Tab) magnesium citrate naloxone (Narcan 4 mg/0.1 mL nasal spray) ondansetron (Zofran ODT 4 mg Tab) oxycodone (oxyCODONE 5 mg Tab) spironolactone (spironolactone 50 mg Tab) Procedures Performed EGD - esophagogastroduodenosc opy (11/18/2024), EGD - esophagogastroduodenosc opy (11/11/2023), Esophagogastroduodenosc opy (09/30/2023), I and D, Jaw. Discharge Vitals Heart Rate (Peripheral) 66 Blood Pressure 130/76 Height 170 cm Height 67 in Weight 77.2 kg Weight 170.197 lb BMI 26.71 What to do next Scheduled Follow-Up Appointments Thursday 8:40 AM EDT With: Vic Carrion Where: [facility] [address], [facility] [place] [address] 2:40 PM EST With: Kavon Lu DO Where: [facility] You Need to Schedule the Following Appointments Follow Up with Vic Carrion, [facility] When: Comments: as scheduled Where: [address], [address] [facility] [address] [place] [phone] Medications What How Much When Why Instructions Unchanged carvedilol (Coreg 6.25 mg Tab) 1 Tablets By Mouth 2 times a day HTN (hypertension) Unchanged furosemide (furosemide 20 mg Tab) 1 Tablets By Mouth Every day as needed for Edema Unchanged magnesium citrate By Mouth Unchanged [facility] Prescription (BP cuff device and appropriate size please) See instructions HTN (hypertension) BP Device/ machine and cuff (size appropriate) Unchanged Misc Prescription ([facility] Prescription) See instructions Reading SAP Dressing 4 x 4 dressing Unchanged Misc Prescription ([facility] Prescription) See instructions LiquidIV hydration Unchanged Misc Prescription ([facility] Prescription) See instructions Muscle & joint balm CBD 880mg Unchanged naloxone (Narcan 4 mg/ 0.1 mL nasal spray) 4 Milligram Nasal Inhalation As Directed Pain for suspected overdose symptoms Pickup at [facility] Unchanged ondansetron (Zofran ODT 4 mg Tab) 1 Tablets By Mouth 3 times a day as needed for Nausea Nausea Unchanged oxycodone (oxyCODONE 5 mg Tab) 0.5 tab By Mouth Every 6 hours as needed for for pain Right leg pain Peripheral vascular disease 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 Abnormal stress test Alcohol use disorder in remission Anemia BMI 26.0-26.9,adult Cellulitis of right leg Cholelithiases Cirrhosis Dependent edema Diarrhea Elevated fasting glucose Elevated INR Elevated liver enzymes Epigastric pain Esophageal varices Headache Hemolytic anemia HTN (hypertension) Hypokalemia Iron deficiency anemia Liver cirrhosis, alcoholic Megaloblastic anemia Nausea Portal venous hypertension Right leg pain Screening for cardiovascular condition Screening for prostate cancer Severe back pain Smokeless tobacco use Superficial thrombophlebitis of leg Thrombocytopenia Tobacco user Varicose veins of legs Venous ulcer of right leg Vitamin D deficiency Historical - Any problem that you are no longer receiving treatment for. Abscess of left leg excluding foot Adverse reaction to drug Cellulitis of leg, right Denies Dysuria Heavy alcohol use Patient Survey You may receive a survey via text or e-mail asking about your office visit. Please share your experience with us by completing your survey. We appreciate your feedback and thank you for choosing us for your care. Education Materials Hypertension, Adult Hypertension is another name for high blood pressure. High blood pressure forces your heart to work harder to pump blood. This can cause problems over time. There are two numbers in a blood pressure reading. There is a top number (systolic) over a bottom n (more content not included)... Normal [facility] Family Medicine Office/Clini c Noteon 12-21-2024 Family Medicine Office/Clinic Note Family Medicine Office/Clinic Note Chief Complaint leg pain HPI Staff Pt. here for right leg pain. Seen pain management yesterday. Will be having a procedure in a couple weeks or so. Also states that he had an episode of dizziness x3 days last week, felt like his ammonia level was low, no more episodes since. History of Present Illness Will is a 39 year old male presenting for follow up of right leg pain. He saw pain management yesterday. The pain in his right leg continues from the knee down with intermittent back pain. He notes it affects his quality of life and all activities. He is using gabapentin 1200 mg three times daily, but it does not provide him any relief. He had work up with pain management which are suspecting saphenous neuritis and he is to have right saphenous nerve block under fluoroscopy. He was instructed to continue on gabapentin. He states he is having the same burning pain that he has been having and is 8/10 currently. He denies numbness and tingling. He has the gabapentin on hand but it does not help him when he takes it. He states the last time I prescribed oxycodone it did help him and he only uses it when he absolutely has to. He notes he has one pill left of the oxycodone I previously prescribed. Pain management is aiming for a month out for his procedure. He states pain management told him they will not prescribed him narcotics for his pain. He states he talked with his specialists, and they are OK with him having short term scripts for narcotic pain medication. He notes when he takes his oxycodone he only takes a quarter to a half a tablet when he is in severe pain. Review of Systems PHQ Score Initial Depression Screen Score: 0 SCORE Physical Exam Vitals & Measurements HR: 66(Peripheral) BP: 130/76 SpO2: 100% HT: 170 cm HT: 67 in WT: 77.2 kg WT: 170.197 lb BMI: 26.71 General: Well developed, well nourished, in no acute distress Lungs: Normal respiratory effort and clear to auscultation Cardio: Regular rate and rhythm, normal S1 and S2, no murmur, no rub Abdomen: Soft, non-distended, non-tender. no G/R/S/Masses Musculoskeletal: No deformity or scoliosis noted. Normal range of motion. Joints normal. No erythema, edema, effusion, or ecchymosis Extremity: No clubbing, cyanosis, edema, or deformity, with normal ROM in both upper and lower bilateral extremities Neurologic: Grossly normal Skin: multiple scars and hyperpigmentation of right leg from vein procedures. No rashes, ulcerations, or suspicious lesions Mental Status: Alert and oriented x3. Normal mood and affect Assessment/Plan 1. Right leg pain (M79.604: Pain in right leg) following with pain management. he is scheduled for nerve block. He is almost out of his oxycodone and takes this sparingly. I provided patient with short term refill. He will continue follow up with pain management for upcoming procedure. Ordered: oxycodone, 0.5 tab, Oral, q6hr, PRN for pain, for leg pain- severe pain only, # 20 tab(s), Refills(s) 0, Pharmacy: [facility], 170, cm, 12/21/24 8:26:00 EDT, Height/Length Dosing, 77.2, kg, 12/21/24 8:33:00 EDT, Weight Dosing 2. HTN (hypertension) (I10: Essential (primary) hypertension) controlled on current medications. continue treatment plan. 3. BMI 26.0-26.9,adult (Z68.26: Body mass index [BMI] 26.0-26.9, adult) The standard range for ages 18 and older is >=18.5 and < 25 kg/m2. Your BMI today was above this range, this falls in the overweight to obese category and there are medical benefits to weight loss. We can offer counselling, referral, and/or medical support in addressing this problem. Your BMI and weight management will be followed at subsequent visits. 4. Overweight (E66.3: Overweight) see above. 5. 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 (L97.919: 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) will provide short term refill of oxycodone today. continue follow up with pain management and upcoming procedure for nerve block. Gabapentin does not help his pain. Ordered: oxycodone, 0.5 tab, Oral, q6hr, PRN for pain, for leg pain- severe pain only, # 20 tab(s), Refills(s) 0, Pharmacy: [facility], 170, cm, 12/21/24 8:26:00 EDT, Height/Length Dosing, 77.2, kg, 12/21/24 8:33:00 EDT, Weight Dosing 6. Peripheral vascular disease (I73.9: Peripheral vascular disease, unspecified) see above. Ordered: oxycodone, 0.5 tab, Oral, q6hr, PRN for pain, for leg pain- severe pain only, # 20 tab(s), Refills(s) 0, Pharmacy: [facility], 170, cm, 12/21/24 8:26:00 EDT, Height/Length Dosing, 77.2, kg, 12/21/24 8:33:00 EDT, Weight Dosing Orders: naloxone, 4 mg, Nasal, As Directed, for suspected overdose symptoms, # 1 kit(s), Refills(s) 0, Pharmacy: [id number], 170, cm, 12/21/24 8:26:00 EDT, Height/Length Dosing, 77.2, kg, 12/21/24 8:33:00 EDT, Weight Dosing Total time spen (more content not included)... [facility] Comment on above: Result Comment: Elec tronically Signed By: Rachel ALBERTS, Vic Friedman\.br\Date and Time Signed: 12/21/24 09:05 EDT Reminderson 12-09-2024 Reminders Reminders From: Naty Garcia MA To: [facility] - Reminders/Recalls; Sent: 12/09/2024 11:32:43 EDT Show up: 10/08/2025 11:32:00 EST Subject: EGD recall Due Date/Time: 11/18/2025 11:32:00 EDT Reminder/Recall [address] Evans 11/18/24 [facility] MRI Spine Lumbar w/o Contras ton 11-28-2024 MRI Spine Lumbar w/o Contrast Exam Date/Time: 11/28/2024 07:58 EDT Reason for Exam: M54.16 Report IMPRESSION: Degenerative changes lumbar spine without high-grade canal or foraminal narrowing. HISTORY: Right radiculopathy. History of fall around 10 years ago. TECHNIQUE: Routine lumbosacral spine MR protocol without gadolinium. Unless otherwise stated, incidental findings in this report do not require further routine follow-up imaging. COMPARISON: CT 12/11/2023. Radiographs 11/21/2024. RESULT: Counting reference: Lumbosacral junction. For the purposes of this report, L5-S1 is considered the last well-formed disc space. Alignment: Alignment is anatomic. Bone marrow signal/fracture: No evidence for acute fracture. Minimal wedge deformity of L1, chronic, unchanged. No evidence for pathologic marrow infiltration. Endplate degenerative signal anterior inferior endplate of L1. Conus: The conus is within normal limits of signal intensity and morphology. Paraspinal soft tissues: Paraspinal soft tissues are unremarkable. Lower thoracic spine: Visualized lower thoracic canal and foramina are without significant narrowing. T12-L1: No significant canal or foraminal narrowing. L1-L2: No significant canal or foraminal narrowing. L2-L3: No significant canal or foraminal narrowing. L3-L4: Facet degenerative changes. No significant canal or foraminal narrowing. L4-L5: Facet degenerative changes. No significant canal or foraminal narrowing. L5-S1: Facet degenerative changes. No significant canal or foraminal narrowing. Sacrum and iliac wings: The visualized sacrum and iliac wings are within unremarkable. The presacral soft tissues are grossly unremarkable. Report Ordering Provider: Sadie Loco FINAL REPORT Dictated: 11/28/2024 9:45 am Camacho Almeida MD Signed (Electronic Signature): 11/28/2024 9:45 am Signed by: Camacho Almeida MD Transcribed by: JUNIOR Technologist: JPD [facility] Ambulatory Visit Summaryon 0 11-21-2024 Ambulatory Visit Summary Ambulatory Visit Summary WILL RALPH :1985 Visit Date:11/21/2024 Ambulatory Visit Instructions Your Diagnosis Liver cirrhosis, alcoholic Alcohol use disorder in remission Elevated liver enzymes Hemolytic anemia Your Care Team Attending Physician - Carrol MULTANI, Mario Xiong Primary Care Physician - Vic Carrion This Is Your Medications List spironolactone (spironolactone 50 mg Tab) Contact prescribing physician if questions or concerns Misc Prescription (BP cuff device and appropriate size please) Misc Prescription (Misc DME Prescription) Misc Prescription (Misc DME Prescription) Misc Prescription (Misc DME Prescription) carvedilol (Coreg 6.25 mg Tab) furosemide (furosemide 20 mg Tab) gabapentin (gabapentin 600 mg Tab) magnesium citrate naloxone (Narcan 4 mg/0.1 mL nasal spray) ondansetron (Zofran ODT 4 mg Tab) oxycodone (oxyCODONE 5 mg Tab) Procedures Performed EGD - esophagogastroduodenosc opy (11/18/2024), EGD - esophagogastroduodenosc opy (11/11/2023), Esophagogastroduodenosc opy (09/30/2023), I and D, Jaw. Discharge Vitals Heart Rate (Peripheral) 65 Blood Pressure 120/74 Height 170 cm Height 67 in Weight 77.5 kg Weight 170.858 lb BMI 26.82 What to do next Scheduled Follow-Up Appointments Thursday 8:40 AM EDT With: iVc Carrion Where: [facility] [address] [place] [address] 2:40 PM EST With: Kavon Lu DO Where: [facility] You Need to Schedule the Following Appointments Follow Up with Carrol MULTANI, Mario Xiong, [facility] When: In 3 months Where: [address], [address] [phone] You Need to Complete the Following CBC w/ Auto Diff, Blood, Routine collect, 11/21/24, Order for future visit, Lab Collect, Liver cirrhosis, alcoholic, Print Label By Order Location Comprehensive Metabolic Panel, Blood, Routine collect, 11/21/24, Order for future visit, Lab Collect, Liver cirrhosis, alcoholic, Print Label By Order Location PT, Blood, Routine collect, 11/21/24, Order for future visit, Lab Collect, Liver cirrhosis, alcoholic, Print Label By Order Location Medications What How Much When Why Instructions New spironolactone (spironolactone 50 mg Tab) 1 Tablets By Mouth Every day Duration: 90 Days Refills: 3 Pickup at [facility] Unchanged carvedilol (Coreg 6.25 mg Tab) 1 Tablets By Mouth 2 times a day HTN (hypertension) Contact prescribing physician if questions or concerns Unchanged furosemide (furosemide 20 mg Tab) 1 Tablets By Mouth Every day as needed for Edema Contact prescribing physician if questions or concerns Unchanged gabapentin (gabapentin 600 mg Tab) 2 Tablets By Mouth 3 times a day Chronic pain Duration: 30 Days Contact prescribing physician if questions or concerns Unchanged magnesium citrate By Mouth Contact prescribing physician if questions or concerns Unchanged Misc Prescription (BP cuff device and appropriate size please) See instructions HTN (hypertension) BP Device/ machine and cuff (size appropriate) Contact prescribing physician if questions or concerns Unchanged Misc Prescription (Misc DME Prescription) See instructions Reading SAP Dressing 4 x 4 dressing Contact prescribing physician if questions or concerns Unchanged Misc Prescription (Misc DME Prescription) See instructions LiquidIV hydration Contact prescribing physician if questions or concerns Unchanged Misc Prescription (Misc DME Prescription) See instructions Muscle & joint balm CBD 880mg Contact prescribing physician if questions or concerns Unchanged naloxone (Narcan 4 mg/ 0.1 mL nasal spray) 4 Milligram Nasal Inhalation As Directed Pain for suspected overdose symptoms Contact prescribing physician if questions or concerns Unchanged ondansetron (Zofran ODT 4 mg Tab) 1 Tablets By Mouth 3 times a day as needed for Nausea Nausea Contact prescribing physician if questions or concerns Unchanged oxycodone (oxyCODONE 5 mg Tab) 0.5 tab By Mouth Every 6 hours as needed for for pain Peripheral vascular disease Leg pain for leg pain- severe pain only Contact prescribing physician if questions or concerns Pharmacy Information [id number]: [address] [place], [place] [phone] Allergies Definity (Back Pain) amoxicillin (Unknown) penicillin (unknown) Problems Ongoing - Any problem that you are currently receiving treatment for. Abnormal stress test Alcohol use disorder in remission Anemia BMI 26.0-26.9,adult Cellulitis of right leg Cholelithiases Cirrhosis Dependent edema Diarrhea Elevated fasting glucose Elevated INR Elevated liver enzymes Epigastric pain Esophageal varices Headache Hemolytic anemia HTN (hypertension) Hypokalemia Iron deficiency anemia Liver cirrhosis, 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 [facility] Gastroenterology Office/Clin ic Noteon 11-21-2024 Gastroenterology Office/Clinic Note Gastroenterology Office/Clinic Note Chief Complaint EGD results HPI Staff Established patient is a(n) 39 year old male who presents today for a(n) 5 month follow up and review 11/18/24 EGD. US and labs due 05/2025 - orders placed. 1 year EGD recall placed. Any GI complaints? no Any blood thinners? no Any GLP-1 agonists? no US liver 11/11/24: IMPRESSION: Cirrhotic liver morphology without focal hepatic lesion. Cholelithiasis. Laboratory Results CBC CMP PT PTT Basophil Absolute: 0 E9/L (11/11/24) A/G Ratio: 1 Low (11/11/24) INR: 1.33 (11/11/24) PTT: 38.8 second(s) High (11/11/24) Basophil Auto: 0.9 % (11/11/24) AGAP: 8 mEq/L (11/11/24) PT: 14.9 second(s) High (11/11/24) Eos Absolute: 0.2 E9/L (11/11/24) Albumin Lvl: 3.6 gm/dL (11/11/24) Eos Auto: 4.2 % (11/11/24) Alk Phos: 159 Int._Unit/L High (11/11/24) Hct: 41.8 % (11/11/24) ALT: 46 Int._Unit/L (11/11/24) HGB: 14.5 gm/dL (11/11/24) AST: 59 Int._Unit/L High (11/11/24) Lymph Absolute: 1 E9/L (11/11/24) Bili Total: 2.6 mg/dL High (11/11/24) Lymph Auto: 22.4 % (11/11/24) BUN: 12 mg/dL (11/11/24) MCH: 36.4 pg High (11/11/24) BUN/Creat Ratio: 24 High (11/11/24) MCHC: 34.7 gm/dL (11/11/24) Calcium Lvl: 9 mg/dL (11/11/24) MCV: 104.7 fL High (11/11/24) Chloride: 105 mmol/L (11/11/24) [place] Absolute: 0.4 E9/L (11/11/24) CO2: 27 mmol/L (11/11/24) [place] Auto: 9.7 % (11/11/24) Creatinine: 0.5 mg/dL (11/11/24) MPV: 8.2 fL (11/11/24) Globulin: 3.5 gm/dL (11/11/24) Neutro Absolute: 2.8 E9/L (11/11/24) Glucose Lvl: 96 mg/dL (11/11/24) Neutro Auto: 62.8 % (11/11/24) Potassium Lvl: 4.4 mmol/L (11/11/24) Platelet: 84 E9/L Low (11/11/24) Sodium Lvl: 136 mmol/L (11/11/24) RBC: 4 E12/L Low (11/11/24) Total Protein: 7.1 gm/dL (11/11/24) RDW: 15.3 % High (11/11/24) WBC: 4.4 E9/L (11/11/24) AFP: * 4.3 ng/mL History of Present Illness Reviewed HPI collected by staff Review of Systems PHQ Score Initial Depression Screen Score: 0 SCORE All systems reviewed, negative; Except for above Physical Exam Vitals & Measurements HR: 65(Peripheral) BP: 120/74 HT: 67 in HT: 170 cm WT: 77.5 kg WT: 170.858 lb BMI: 26.82 No acute distress Procedure EGD 11/18/24: Impression and Plan 1. Small esophageal varices noted. 2. Moderate Portal hypertensive gastropathy (PHG) in the fundus of the stomach. 3. Normal duodenum. Recommendations: -Repeat EGD in 1 year of EV surveillance Assessment/Plan 1. Liver cirrhosis, alcoholic (K70.30: Alcoholic cirrhosis of liver without ascites) Sober for more than 2.5 years Liver biopsy was done at [facility], gradient was 14 mmHg Liver biopsy report is reported steatosis and cirrhosis advanced, suspected alcohol induced based on history - Ascites: low salt diet, on low-dose Lasix Aldactone 20/50 - SBP Prophylaxis: n/a - Varices: EGD banded in September 2023, repeat in November showed small varices, repeat November 2024 - Encephalopathy: none - HCC screening: Ultrasound and AFP every 6 months - Transplant Status: MELD sodium 14, but I wonder if there is elevated bilirubin due to hemolysis - Nutrition: encourage high protein intake and late night snack as well. -Coreg 6.25 twice daily, we discussed statin, will hold on this for 3 months until after repeat labs - Coffee is encouraged, helps decrease risk of HCC - Repeat cirrhosis panel in 3 months (CBC, CMP, INR, AFP) Health maintenance: Hep A and Hep B status: Will need vaccination for both, consider Twinrix. He thinks he is up to date on vaccinations, advised to discuss with PCP AST slightly increased Remains sober US liver 11/11/24 showed cirrhotic liver morphology without focal hepatic lesion and cholelithiasis. He is taking Adrian for the gallstones, high-risk for surgery Will repeat labs in 3 months and follow up then 2. Alcohol use disorder in remission (F10.91: Alcohol use, unspecified, in remission) 3. Elevated liver enzymes (R74.8: Abnormal levels of other serum enzymes) 4. 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 . Follow-up With When Contact Information Carrol MULTANI, Mario Xiong, JOE, MED In [address] [place] [address] [place], [address] [phone] Additional Instructions: Problem List/Past Medical History Ongoing Abnormal stress test Alcohol use disorder in remission Anemia BMI 26.0-26.9,adult Cellulitis of right leg Cholelithiases Cirrhosis Dependent edema Diarrhea Elevated fasting glucose Elevated INR Elevated liver enzymes Epigastric pain Esophageal varices Headache Hemolytic anemia HTN (hypertension) Hypokalemia Iron deficiency anemia Liver cirrhosis, al (more content not included)... [facility] Comment on above: Result Comment: Elec tronically Signed By: Mario Evans MD\.br\Date and Time Signed: 11/21/24 10:25 EDT\.br\Electronically Co-Signed By: Joy Bentley MA\.br\Date and Time Co-Signed: 11/21/24 10:18 EDT Main OR Intraoperative Recor don 11-21-2024 Main OR Intraoperative Record Main OR Intraoperative Record IntraOp Document Type FT Summary Primary Physician: Mario Evans MD Finalized Date/Time: 11/21/24 11:21:46 Pt. Name: WILL RALPH./Sex: 1985 Male Med Rec #: [id number] Physician: Mario Evans MD Financial #: [id number] Pt. Type: O Room/Bed: / Admit/Disch: 11/18/24 08:07:26 - 11/18/24 23:59:59 Institution: Case Times FT Entry 1 Patient Times In Room 11/18/24 08:54:00 Out Room 11/18/24 09:02:00 Procedure Times Start 11/18/24 08:58:00 Stop 11/18/24 09:00:00 Anesthesia Times Start 11/18/24 08:54:00 Stop 11/18/24 09:02:00 Last Modified By: Ivis Ware RN 11/18/24 09:01:18 General Comments: 11/21/24 Chart opened for charge review per Yasmine Spangler RN. [place] Case Attendance FT Entry 1 Entry 2 Entry 3 Case Attendee Pauline FRIED, Bang Ware RN, Eve Do Role Performed Anesthesiologist Pickle Cutter - Primary Scrub - Primary Chopped Strand Operator Time In 11/18/24 08:54:00 11/18/24 08:54:00 11/18/24 08:54:00 Time Out 11/18/24 09:02:00 11/18/24 09:02:00 11/18/24 09:02:00 Procedure EGD(.) EGD(.) EGD(.) Comments Dr. Chin supervising Last Modified By: Ivis Ware RN, RN, Ivis Pedraza RN 11/18/24 09:01:19 11/18/24 09:01:19 11/18/24 09:01:19 Entry 4 Case Attendee Mario Evans MD Role Performed Surgeon - Primary Time In 11/18/24 08:54:00 Time Out 11/18/24 09:02:00 Procedure EGD(.) Comments Last Modified By: Ivis Ware RN 11/18/24 09:01:19 Perioperative Protocols FT Pre-Care Text: Implements protective measures prior to operative or invasive procedure, confirms identity before the operative or invasive procedure, verifies operative procedure, surgical site, and laterality Entry 1 Procedure(s) EGD(.) Patient Identity Birthday, ID Band Verified (select at Check, Patient least 2): Participation Consents / H and P Anesthesia Consent, Operative Site N/A Verified H&P, Surgery/Procedure Marking Verified Consent Surgical Site No Laterality Verified n/a Verified Procedure Verified Yes Correct Patient Yes Position Verified Availability Equipment, Medication Prep Dry n/a Verified (If Applicable) PreOp Antibiotic No Time Out Bang Pichardo Given Participants Jeanie Maria RN, Angela, Miles, Kirstyn K, Carrol MULTANI, Mario Xiong Time Out Complete 11/18/24 08:56:00 Outcomes Met? Yes Last Modified By: Ivis Ware RN 11/18/24 08:59:09 Post-Care Text: The patient is free from signs and symptoms of injury caused by extraneous objects Allergy Information FT Pre-Care Text: Verifies allergies Entry 1 Allergies Reviewed? Yes Allergies Reviewed Self/Patient With Outcomes Met? Yes Last Modified By: Ivis Ware RN 11/18/24 08:59:15 Post-Care Text: The patient received appropriate medication(s) safely administered during the perioperative period Surgical Procedures FT Entry 1 Procedure Description Procedure EGD Modifiers . Surgeon Description EGD Primary Procedure Yes Primary Surgeon Carrol MULTANI, Mario Xiong Start 11/18/24 08:58:00 Stop 11/18/24 09:00:00 Anesthesia Type General Surgical Service Gastroenterology Wound Class 2 - Clean-Contaminated Last Modified By: Ivis Ware RN 11/18/24 09:03:24 General Case Data FT Pre-Care Text: Classifies surgical wound, implements aseptic technique, initiates traffic control Entry 1 Case Information OR ENDO 1 FT Case Level Level 2 Wound Class 2 - Clean-Contaminated Specialty Gastroenterology ASA Class 3 Preop Diagnosis LIVER CIRRHOSIS, Postop Same As Preop No ELEVATED LIVER ENZYMES, HEMOLYTIC ANEMIA Postop Diagnosis small esophageal Outcomes Met? Yes varices, portal hypertension gastropathy Last Modified By: Ivis Ware RN 11/18/24 09:00:01 Post-Care Text: The patient is free from signs and symptoms of infection Skin Assessment (Pre Procedure) FT Pre-Care Text: Implements protective measures to prevent skin/ tissue injury due to thermal or mechanical sources Evaluates for signs and symptoms of physical injury to skin and tissue Entry 1 Skin Integrity Intact, [place], Warm, & Skin Abnormality No Dry Outcomes Met? Yes Last Modified By: Ivis Ware RN 11/18/24 09:00:32 Post-Care Text: The patient is free from [...] Arm Position Resting at Side Left Leg Position Extended Right Leg Position Extended Positioning Device Safet (more content not included)... [facility] Reminderson 11-21-2024 Reminders Reminders From: Grace Galaviz I To: [facility] - Reminders/Recalls; Sent: 11/21/2024 07:32:43 EDT Show up: 10/08/2025 07:32:00 EST Subject: EGD recall Due Date/Time: 11/18/2025 07:32:00 EDT Reminder/Recall [address] Evans 11/18/24 [facility] XR Spine Lumbosacral Minimum 4 Viewson 11-21-2024 XR Spine Lumbosacral Minimum 4 Views Exam Date/Time: 11/21/2024 10:46 EDT Reason for Exam: M54.16, M54.50 Report IMPRESSION: NO ACUTE OSSEOUS ABNORMALITY. EXAMINATION: XR Spine Lumbosacral Minimum 4 Views TECHNIQUE: AP, lateral, bilateral oblique views of the lumbar spine and AP and lateral coned down view of the lumbosacral junction HISTORY: Low back pain COMPARISONS: CT abdomen pelvis 12/11/2023. FINDINGS: Minimal levocurvature. Chronic mild compression deformity of L1 is unchanged. Lumbar vertebral body heights are otherwise maintained. Intervertebral disc heights are preserved. No acute fracture. No spondylolysis or spondylolisthesis. Ordering Provider: Sadie Loco FINAL REPORT Dictated: 11/21/2024 10:57 am Bang Ortiz DO Signed (Electronic Signature): 11/21/2024 10:57 am Signed by: Bang Ortiz DO Transcribed by: JUNIOR Technologist: MICKI [facility] XR Foot 3+ Views Righton XR Foot 3+ Views Right Exam Date/Time: 11/18/2024 18:44 EDT Reason for Exam: Pain, Traumatic Report IMPRESSION: NEGATIVE RIGHT FOOT. CLINICAL HISTORY: Pain, Traumatic COMPARISON: None available. FINDINGS: X-rays of the right foot demonstrate no evidence of a fracture, dislocation, bone or joint abnormality. Ordering Provider: Crow Sinha FINAL REPORT Dictated: 11/19/2024 11:50 am Gerson Barrera MD Signed (Electronic Signature): 11/19/2024 11:50 am Signed by: Gerson Barrera MD Transcribed by: JUNIOR Technologist: [facility] Ambulatory Visit Summaryon 0 11-18-2024 Ambulatory Visit Summary Ambulatory Visit Summary WILL RALPH :1985 Visit Date:11/18/2024 Ambulatory Visit Instructions Your Diagnosis Foot pain, right Your Care Team Attending Physician - Keith Patricia PA-C Primary Care Physician - Vic Carrion This Is Your Medications List Misc Prescription (BP cuff device and appropriate size please) Misc Prescription (Misc DME Prescription) Misc Prescription (Misc DME Prescription) Misc Prescription (Misc DME Prescription) carvedilol (Coreg 6.25 mg Tab) furosemide (furosemide 20 mg Tab) gabapentin (gabapentin 300 mg Cap) gabapentin (gabapentin 600 mg Tab) magnesium citrate naloxone (Narcan 4 mg/0.1 mL nasal spray) ondansetron (Zofran ODT 4 mg Tab) oxycodone (oxyCODONE 5 mg Tab) spironolactone (spironolactone 50 mg Tab) Procedures Performed EGD - esophagogastroduodenosc opy (11/18/2024), EGD - esophagogastroduodenosc opy (11/11/2023), Esophagogastroduodenosc opy (09/30/2023), I and D, Jaw. Discharge Vitals Temperature (Oral) 37.0 ???C Heart Rate (Peripheral) 70 Blood Pressure 128/80 Height 170 cm Height 67 in Weight 77.1 kg Weight 169.976 lb BMI 26.68 What to do next Scheduled Follow-Up Appointments Thursday 8:30 AM EDT With: Sadie Loco PA-C Where: [facility] Thursday 9:15 AM EDT With: Carrol MULTANI, Mario Xiong Where: [facility] [address] [facility] [address] [place] [address]- Thursday 8:40 AM EDT With: Vic Carrion Where: [facility] [address], [place] [address] 2:40 PM EST With: Kavon Lu DO Where: [facility] Medications What How Much When Why Instructions Unchanged carvedilol (Coreg 6.25 mg Tab) 1 Tablets By Mouth 2 times a day HTN (hypertension) Unchanged furosemide (furosemide 20 mg Tab) 1 Tablets By Mouth Every day as needed for Edema Unchanged gabapentin (gabapentin 300 mg Cap) See instructions take per office provided instructions until you are taking 2 tablets three times per day Unchanged gabapentin (gabapentin 600 mg Tab) 2 Tablets By Mouth 3 times a day Chronic pain Duration: 30 Days Unchanged magnesium citrate By Mouth Unchanged Misc Prescription (BP cuff device and appropriate size please) See instructions HTN (hypertension) BP Device/ machine and cuff (size appropriate) Unchanged Misc Prescription (Misc DME Prescription) See instructions Reading SAP Dressing 4 x 4 dressing Unchanged Misc Prescription (Misc DME Prescription) See instructions LiquidIV hydration Unchanged Misc Prescription (Misc DME Prescription) See instructions Muscle & joint balm CBD 880mg Unchanged naloxone (Narcan 4 mg/ 0.1 mL nasal spray) 4 Milligram Nasal Inhalation As Directed Pain for suspected overdose symptoms Unchanged ondansetron (Zofran ODT 4 mg Tab) 1 Tablets By Mouth 3 times a day as needed for Nausea Nausea Unchanged oxycodone (oxyCODONE 5 mg Tab) 0.5 tab By Mouth Every 6 hours as needed for for pain Peripheral vascular disease Leg pain for leg pain- severe pain only Unchanged spironolactone (spironolactone 50 mg Tab) 1 Tablets By Mouth Every day Allergies Definity (Back Pain) amoxicillin (Unknown) penicillin (unknown) Problems Ongoing - Any problem that you are currently receiving treatment for. Abnormal stress test Alcohol use disorder in remission Anemia BMI 26.0-26.9,adult Cellulitis of right leg Cholelithiases Cirrhosis Dependent edema Diarrhea Elevated fasting glucose Elevated INR Elevated liver enzymes Epigastric pain Esophageal varices Headache Hemolytic anemia HTN (hypertension) Hypokalemia Iron deficiency anemia Liver cirrhosis, alcoholic Megaloblastic anemia Nausea Portal venous hypertension Right leg pain Screening for cardiovascular condition Screening for prostate cancer Severe back pain Smokeless tobacco use Superficial thrombophlebitis of leg Thrombocytopenia Tobacco user Varicose veins of legs Venous ulcer of right leg Vitamin D deficiency Historical - Any problem that you are no longer receiving treatment for. Abscess of left leg excluding foot Adverse reaction to drug Cellulitis of leg, right Denies Dysuria Heavy alcohol use Patient Survey You may receive a survey via text or e-mail asking about your office visit. Please share your experience with us by completing your survey. We appreciate your feedback and thank you for choosing us for your care. [facility] Discharge Instructionson Discharge Instructions Discharge Instructions WILL RALPH :1985 Visit Date:11/18/2024 Inpatient Discharge Instructions Your Care Team Admitting Physician - Carrol MULTANI, Mario Xiong Referring Physician - Mario Evans MD Reason for Your Visit LIVER CIRRHOSIS, ELEVATED LIVER ENZYMES, HEMOLYTIC ANEMIA Your Diagnosis Cirrhosis This Is Your Medications List Misc Prescription (BP cuff device and appropriate size please) Misc Prescription (Misc DME Prescription) Misc Prescription (Misc DME Prescription) Misc Prescription (Misc DME Prescription) carvedilol (Coreg 6.25 mg Tab) furosemide (furosemide 20 mg Tab) gabapentin (gabapentin 300 mg Cap) gabapentin (gabapentin 600 mg Tab) magnesium citrate naloxone (Narcan 4 mg/0.1 mL nasal spray) ondansetron (Zofran ODT 4 mg Tab) oxycodone (oxyCODONE 5 mg Tab) spironolactone (spironolactone 50 mg Tab) Procedure History EGD - esophagogastroduodenosc opy (11/18/2024), EGD - esophagogastroduodenosc opy (11/11/2023), Esophagogastroduodenosc opy (09/30/2023), I and D, Jaw. Discharge Vitals Temperature (Temporal Artery) 36.5 ???C Heart Rate (Monitored) 71 Respiratory Rate 13 Blood Pressure 107/60 Height 170 cm Weight 74.2 kg BMI 25.67 What to do next Instructions From Your Doctor Event Name Event Result Discharge Activity Resume normal activities in 24 hours Discharge Restrictions No driving for 24 hrs Discharge Diet(s) Other: previous Call Your Doctor For Persistent or heavy bleeding Discharge Instructions Discharge Instructions Previously Scheduled Follow-Up Appointments Thursday 8:30 AM EDT With: Sadie Loco PA-C Where[facility] Thursday 9:15 AM EDT With: Carrol MULTANI, Mario Xiong Where: [facility] [address] [address]- Thursday 8:40 AM EDT With: Vic Carrion Where: [facility] [address], [place] [address] 2:40 PM EST With: Kavon Lu DO Where: [facility] Medications What How Much When Why Instructions Next Dose Unchanged carvedilol (Coreg 6.25 mg Tab) 1 Tablets By Mouth 2 times a day HTN (hypertension) Unchanged furosemide (furosemide 20 mg Tab) 1 Tablets By Mouth Every day as needed for Edema Unchanged gabapentin (gabapentin 300 mg Cap) See instructions take per office provided instructions until you are taking 2 tablets three times per day Unchanged gabapentin (gabapentin 600 mg Tab) 2 Tablets By Mouth 3 times a day Chronic pain Duration: 30 Days Unchanged magnesium citrate By Mouth Unchanged Misc Prescription (BP cuff device and appropriate size please) See instructions HTN (hypertension) BP Device/ machine and cuff (size appropriate) Unchanged Misc Prescription (Misc DME Prescription) See instructions Reading SAP Dressing 4 x 4 dressing Unchanged Misc Prescription (Misc DME Prescription) See instructions LiquidIV hydration Unchanged Misc Prescription (Misc DME Prescription) See instructions Muscle & joint balm CBD 880mg Unchanged naloxone (Narcan 4 mg/ 0.1 mL nasal spray) 4 Milligram Nasal Inhalation As Directed Pain for suspected overdose symptoms Unchanged ondansetron (Zofran ODT 4 mg Tab) 1 Tablets By Mouth 3 times a day as needed for Nausea Nausea Unchanged oxycodone (oxyCODONE 5 mg Tab) 0.5 tab By Mouth Every 6 hours as needed for for pain Peripheral vascular disease Leg pain for leg pain- severe pain only Unchanged spironolactone (spironolactone 50 mg Tab) 1 Tablets By Mouth Every day Test Results No qualifying data available. Allergies Definity (Back Pain) amoxicillin (Unknown) penicillin (unknown) Problems Ongoing - Any problem that you are currently receiving treatment for. Abnormal stress test Alcohol use disorder in remission Anemia BMI 26.0-26.9,adult Cellulitis of right leg Cholelithiases Cirrhosis Dependent edema Diarrhea Elevated fasting glucose Elevated INR Elevated liver enzymes Epigastric pain Esophageal varices Headache Hemolytic anemia HTN (hypertension) Hypokalemia Iron deficiency anemia Liver cirrhosis, alcoholic Megaloblastic anemia Nausea Portal venous hypertension Right leg pain Screening for cardiovascular condition Screening for prostate cancer Severe back pain Smokeless tobacco use Superficial thrombophlebitis of leg Thrombocytopenia Tobacco user Varicose veins of legs Venous ulcer of right leg Vitamin D deficiency Historical - Any problem that you are no longer receiving treatment for. Abscess of left leg excluding foot Adverse reaction to drug Cellulitis of leg, right Denies Dysuria Heavy alcohol use Education Materials Upper Endoscopy, Adult, Care After After the procedure, it is common to have a (more content not included)... Normal [facility] Comment on above: Result Comment: Elec tronically Signed By: Andres GREER, Bhumika\.br\Date and Time Signed: 11/18/24 09:10 EDT Family Medicine Office/Clini c Noteon 11-18-2024 Family Medicine Office/Clinic Note Family Medicine Office/Clinic Note Chief Complaint right foot pain HPI Staff 39 year old male presents for foot pain. Patient states he hit his foot on a dumbbell weight Pain characteristics: Pain location: top of right foot Onset: 9 days ago Characteristics: sharp constant pain that radiates up to the ankle and swelling Intensity:7/10 Relieved by: compression sock History of Present Illness I have reviewed and verified the staff HPI to be accurate for this encounter. Portions of this record have been created with voice recognition software. Occasional wrong-word or ???glzly-n-[id number]??? substitutions may have occurred due to the inherent limitations of voice recognition software. 39-year-old male presents for right foot pain states approximately 9 days ago patient was walking in his living room and accidentally kicked a dumbbell weight with the top of his right foot while walking. Denies inability to ambulate due to the pain or swelling of the right foot since that time, does express that it is painful for him that his currently prescribed gabapentin from pain management is not been successful in reducing any pain for this or his chronic right leg pain. Patient denies any numbness or tingling in the right foot or lower extremity after this incident, or reduced range of motion. Patient does state that the pain is somewhat reduced when he wears his compression socks. Review of Systems PHQ Score Initial Depression Screen Score: 0 SCORE ROS negative unless otherwise stated in HPI. Physical Exam Vitals & Measurements T: 37.0 ???C(Oral) HR: 70(Peripheral) BP: 128/80 SpO2: 98% HT: 67 in HT: 170 cm WT: 77.1 kg WT: 169.976 lb BMI: 26.68 General: generally ill appearing but in no acute distress Eyes: Pupils equal, round, and reactive to light. Conjunctivae and sclerae normal, and extraocular movements intact Ears: not assessed Nose: not addressed Mouth: not assessed Neck: not assessed Lungs: not assessed Cardio: not assessed Abdomen: not assessed Musculoskeletal: No deformity or scoliosis noted. Normal range of motion. Joints normal. No erythema, edema, effusion, or ecchymosis full range of motion noted to the right foot and ankle, no increased pain with flexion of foot or ankle. Extremity: No clubbing, cyanosis, edema, or deformity, with normal ROM in both upper and lower bilateral extremities palpable pulses to the right and left lower extremity bilaterally Neurologic: Grossly normal Skin: No rashes, ulcerations, or suspicious lesions bruising noted to the top of the right foot with mild edema associated with bruising area, no erythema present, no warmth noted in comparison to left foot. Mental Status: Alert and oriented x3. Normal mood and affect Assessment/Plan Discussed with patient possibility of the swelling being due to inflammation from the injury as well as bruising, which will improve as the bruising goes down. Recommended to follow the RICE method rest, icing compressing and elevating when able to to help healing of the injured extremity. Discussed that if patient feels he needs further pain medication than [id number] prescribed he needs to reach out to his PCP or pain management as they are the ones who are prescribing those needs for him currently, and current presentation does not warrant the need for controlled substances further than what he is already prescribed. Discussed with patient that my personal review of the x-ray images in office appears to be negative for any fracture noted in the concerning region, the radiologist will read tomorrow and we will notify the patient at that time of the official read of the x-ray. 1. Foot pain, right (M79.671: Pain in right foot) Please follow-up with your primary care provider in 3 to 5 days. Contact their office to schedule a follow-up appointment. You were seen and evaluated regards to right foot pain and swelling. You had an x-ray of the right foot completed today which is negative for any acute fracture or dislocation, as read by in clinic providers. Continue to rest ice and elevate as needed for pain and swelling. You may return for any worsening or concerning symptoms. If no improvement x1 week of rest ice and elevation follow closely with primary care provider as he may need referral to orthopedics. Ordered: XR Foot 3+ Views Right Follow-up With When Contact Information Vic Carrion, [facility], MED Additional Instructions: Patient Education How to Use Cold Therapy Acute Pain, Adult Problem List/Past Medical History Ongoing Abnormal stress test Alcohol use disorder in remission Anemia BMI 26.0-26.9,adult Cellulitis of right leg Cholelithiases Cirrhosis Dependent edema Diarrhea Elevated fasting glucose Elevated INR Elevated liver enzymes Epigastric pain Esophageal varices Headache Hemolytic anemia HTN (hypertension) Hypokalemia Iron deficiency anemia Liver cirrhosis, alcoholic Megaloblastic anem (more content not included)... Normal [facility] Comment on above: Result Comment: Elec tronically Signed By: Harshad PARKER, Keith Underwood\.br\Date and Time Signed: 11/18/24 18:59 EDT Inpatient Patient Summaryon 11-18-2024 Inpatient Patient Summary Inpatient Patient Summary [place] [address] [facility] Clinical Discharge Instructions PERSON INFORMATION Name: WILL RALPH [facility] Admitting Physician: Mario Evans MD Attending Physician: Mario Evans MD PCP: Vic Carrion Discharge Diagnosis: Cirrhosis Comment: PATIENT EDUCATION INFORMATION Instructions: Medication Leaflets: Follow up: Type Location Start Finish State Pain Management - Follow Up (FT) [facility] [place] 11/21/2024 8:30 AM 11/21/2024 8:45 AM Confirmed [facility] Follow [place] [facility] 11/21/2024 9:15 AM 11/21/2024 9:30 AM Confirmed FM Open [facility] 04/07/2025 8:40 AM 04/07/2025 9:00 AM Confirmed ONC Office Visit 20 (FT) FT.ONCOLOGY 09/28/2025 2:40 PM 09/28/2025 3:00 PM Confirmed MEDICATION LIST Medications to Continue with No Changes Other Medications carvedilol (Coreg 6.25 mg Tab) 1 Tablets By Mouth 2 times a day. Refills: 3. furosemide (furosemide 20 mg Tab) 1 Tablets By Mouth every day as needed Edema. gabapentin (gabapentin 300 mg Cap) take per office provided instructions until you are taking 2 tablets three times per day. Refills: 0. gabapentin (gabapentin 600 mg Tab) 2 Tablets By Mouth 3 times a day for 30 Days. Refills: 0. magnesium citrate By Mouth. Misc Prescription (BP cuff device and appropriate size please) BP Device/ machine and cuff (size appropriate). Refills: 0. Misc Prescription (Misc DME Prescription) Reading SAP Dressing 4 x 4 dressing. Misc Prescription (Mis DME Prescription) LiquidIV hydration. Misc Prescription (Misc DME Prescription) Muscle & joint balm CBD 880mg. naloxone (Narcan 4 mg/0.1 mL nasal spray) 4 Milligram Nasal Inhalation As Directed. for suspected overdose symptoms. Refills: 0. ondansetron (Zofran ODT 4 mg Tab) 1 Tablets By Mouth 3 times a day as needed Nausea. Refills: 0. oxycodone (oxyCODONE 5 mg Tab) 0.5 tab By Mouth every 6 hours as needed for pain. for leg pain- severe pain only. Refills: 0., OARRS reviewed. 7 day supply. referring to pain management for chronic leg pain. spironolactone (spironolactone 50 mg Tab) 1 Tablets By Mouth every day. Refills: 3. Comment: [facility] Main OR PACU II [place] Main OR PACU II Record Main OR PACU II Record PACU Phase II Document Type FT Summary Primary Physician: Mario Evans MD Finalized Date/Time: 11/18/24 09:24:26 Pt. Name: WILL RALPH/Sex: 1985 Male Med Rec #: [id number] Physician: Mario Evans MD Financial #: [id number] Pt. Type: O Room/Bed: / Admit/Disch: 11/18/24 08:07:26 - Institution: Case Times PACU II FT Pre-Care Text: Identifies barriers to communication and implements measures to provide psychological support and determines knowledge level Develops individualized plan of care, and ensures continuity of care Maintains patient's dignity and privacy, and maintains patient confidentiality Identifies and reports philosophical, cultural, and spiritual beliefs and values Identifies individual values and wishes concerning care administers prescribed antibiotic therapy and immunizing agents as ordered, Evaluates postoperative tissue perfusion Implements thermoregulation measures, and monitors body temperature Evaluates postoperative respiratory status Evaluates postoperative cardiac status Evaluates postoperative neurological status Assesses pain control, collaborated in initiating patient-controlled analgesia and implements alternative methods of pain control Verifies allergies, administers prescribed medications and solutions, evaluates response to medications Entry 1 In PACU II 11/18/24 09:04:00 Discharge from PACU 11/18/24 09:34:00 II Outcomes Met? Yes Last Modified By: Bhumika Campos RN 11/18/24 09:24:15 Post-Care Text: The patient demonstrates knowledge of [...] affecting his or her perioperative plan of care. The patient is free from signs and [...] from baseline levels established preoperatively The patient's neurological status is consistent with or improved from baseline levels established preoperatively The patient demonstrates and/or reports adequate pain control throughout the perioperative period The patient received appropriate medication(s), safely administered during the perioperative period Finalized By: Bhumika Campos RN Document Signatures Signed By: Bhumika Campos RN 11/18/24 09:24 [facility] Main OR Preoperative Recordo n 11-18-2024 Main OR Preoperative Record Main OR Preoperative Record Holding Area Document Type FT Summary Primary Physician: Mario Evans MD Finalized Date/Time: 11/18/24 08:25:00 Pt. Name: WILL RALPH/Wesley: 1985 Male Med Rec #: [id number] Physician: Mario Evans MD Financial #: [id number] Pt. Type: O Room/Bed: / Admit/Disch: 11/18/24 08:07:26 - Institution: Case Times Holding FT Pre-Care Text: Verifies consent for planned procedure, identifies individual values and wishes concerning care, includes family members in perioperative teaching Secures patient's records' belongings, and valuables, maintains patient's dignity and privacy, and maintains patient confidentiality Entry 1 In Holding 11/18/24 08:15:00 Outcomes Met? Yes Last Modified By: Alondra Lopez RN 11/18/24 08:22:18 Post-Care Text: The patient participates in decisions affecting his or her perioperative plan of care The patient's right to privacy is maintained Surgery Checklist FT Entry 1 Patient Birthday, ID Band Procedure History and Physical, Identification: Check, Patient Verification: Surgical Consent, With Participation Patient NPO after Midnight: No Date/Time: 11/18/24 06:00:00 Limitations: n/a Complaints of Pain: No Pain Comment: denies Operative Site n/a Marking: Marked By: n/a Availability Equipment Verified: Does Patient Smoke No Patient states Yes Comment - Adult Father- Rich postop adult Supervision supervision available Case Cancelled in No Holding Area see comments below for reason Last Modified By: Alondra Lopez RN 11/18/24 08:24:58 General Comments: Pt NPO since midnight other athan 8 ounces of water at 0600, Dr. Chin made aware. /,RN Finalized By: Alondra Lopez RN Document Signatures Signed By: Alondra Lopez RN 11/18/24 08:25 Normal [facility] Outpatient Surgery Discharge Instructionon 11-18-2024 Outpatient Surgery Discharge Instruction Outpatient Surgery Discharge Instruction [address] [address] Patient Discharge Instructions PERSON INFORMATION Name: WILL RALPH Date of : 1985 Current Date: 11/18/2024 08:52:09 PHYSICIANS Admitting Physician: Mario Evans MD Discharge Diagnosis: Cirrhosis WILL RALPH has been given the following list of follow-up instructions, prescriptions, and patient education materials: PATIENT FOLLOW-UP INFORMATION Diet: Other: previous Discharge Activity: Resume normal activities in 24 hours Discharge Restrictions: No driving for 24 hrs Call Your Doctor For: Persistent or heavy bleeding IF UNABLE TO CONTACT YOUR PHYSICIAN AND YOU FEEL IT IS AN EMERGENCY, GO TO THE NEAREST EMERGENCY ROOM OR CALL 911 I, WILL RALPH, have received the attached patient education materials/instructions and have verbalized understanding: May we do a follow up call? Yes No I was present when discharge instructions were given Patient Signature Date Clinican/Nurse Signature _ Date Follow up: Type Location Start Finish State Pain Management - Follow Up (FT) FT[facility] Mg[facility] [place] 11/21/2024 8:30 AM 11/21/2024 8:45 AM Confirmed [facility] Follow [place] [facility] 11/21/2024 9:15 AM 11/21/2024 9:30 AM Confirmed FM Open [facility] 04/07/2025 8:40 AM 04/07/2025 9:00 AM Confirmed ONC Office Visit 20 (FT) FT.ONCOLOGY 09/28/2025 2:40 PM 09/28/2025 3:00 PM Confirmed Pharmacy Information: You may receive a survey from [facility] asking you to rate your care experience. Your feedback is important and will help us understand what we do well and how we can improve the quality of care we provide to you, your loved ones and our community. It???s an honor to serve you. Thank you for choosing [facility] HERE ARE THE MEDICATION CHANGES THAT OCCURRED DURING YOUR HOSPITAL STAY Medications to Continue with No Changes Other Medications carvedilol (Coreg 6.25 mg Tab) 1 Tablets By Mouth 2 times a day. Refills: 3. furosemide (furosemide 20 mg Tab) 1 Tablets By Mouth every day as needed Edema. gabapentin (gabapentin 300 mg Cap) take per office provided instructions until you are taking 2 tablets three times per day. Refills: 0. gabapentin (gabapentin 600 mg Tab) 2 Tablets By Mouth 3 times a day for 30 Days. Refills: 0. magnesium citrate By Mouth. Misc Prescription (BP cuff device and appropriate size please) BP Device/ machine and cuff (size appropriate). Refills: 0. Misc Prescription ([facility] DME Prescription) Reading SAP Dressing 4 x 4 dressing. Misc Prescription ([facility] DME Prescription) LiquidIV hydration. Misc Prescription ([facility] DME Prescription) Muscle & joint balm CBD 880mg. naloxone (Narcan 4 mg/0.1 mL nasal spray) 4 Milligram Nasal Inhalation As Directed. for suspected overdose symptoms. Refills: 0. ondansetron (Zofran ODT 4 mg Tab) 1 Tablets By Mouth 3 times a day as needed Nausea. Refills: 0. oxycodone (oxyCODONE 5 mg Tab) 0.5 tab By Mouth every 6 hours as needed for pain. for leg pain- severe pain only. Refills: 0., OARRS reviewed. 7 day supply. referring to pain management for chronic leg pain. spironolactone (spironolactone 50 mg Tab) 1 Tablets By Mouth every day. Refills: 3. PATIENT EDUCATION INFORMATION Instructions: Medication Leaflets: Normal [facility] AFPon 11-12-2024 AFP.tumor marker [Mass/Vol] 4.3 ng/mL Invalid Interpretation Code 0.0-6.9 [facility] Comment on above: Result Comment: [facility] Electrochemiluminescence Immunoassay (ECLIA) Values obtained with different assay methods or kits cannot be used interchangeably. Results cannot be interpreted as absolute evidence of the presence or absence of malignant disease. This test is not interpretable in females. Performed at: [facility] [id number] PhD Poncho Prater Performed By: #### 2 [id number] ####[facility] [address] [place] [address] CBC w/ Auto Diffon 5 Basophils/100 WBC (Bld) 0.9 % Normal 0.0-2.0 [facility] Comment on above: Performed By: #### 2 [id number] #### [facility] [address] [place] [address] Basophils/Leukocytes Auto (Bld) [Pure # fraction] 0.0 E9/L Normal 0.0-0.2 [facility] Comment on above: Performed By: #### 2 [id number] #### [facility] [address] [place] [address] Eosinophils (Bld) [#/Vol] 0.2 E9/L Normal 0.0-0.5 [facility] Comment on above: Performed By: #### 2 [id number] #### [facility] [address] [place] [address] Eosinophils/100 WBC (Bld) 4.2 % Normal 0.0-8.0 [facility] Comment on above: Performed By: #### 2 [id number] #### [facility] [address] [place] [address] Erythrocyte distribution width (RBC) [Ratio] 15.3 % High 10.9-14.2 [facility] Comment on above: Performed By: #### 2 [id number] #### [facility] [address] [place] [address] Hematocrit (Bld) [Volume fraction] 41.8 % Normal 37.7-49.0 [facility] Comment on above: Performed By: #### 2 [id number] #### [facility] [address] [place] [address] Hemoglobin (Bld) [Mass/Vol] 14.5 g/dL Normal 13.5-17.5 [facility] Comment on above: Performed By: #### 2 [id number] #### [facility] [address] [place] [address] Lymphocytes (Bld) [#/Vol] 1.0 E9/L Normal 1.0-4.0 [facility] Comment on above: Performed By: #### 2 [id number] #### [facility] [address] [place] [address] Lymphocytes/100 WBC (Bld) 22.4 % Normal 14.0-50.0 [facility] Comment on above: Performed By: #### 2 [id number] #### [facility] [address] [place] [address] MCH (RBC) [Entitic mass] 36.4 pg High 27.0-34.0 [facility] Comment on above: Performed By: #### 2 [id number] #### [facility] [address] [place] [address] MCHC (RBC) [Mass/Vol] 34.7 g/dL Normal 31.4-36.0 [facility] Comment on above: Performed By: #### 2 [id number] #### [facility] [address] [place] [address] MCV (RBC) [Entitic vol] 104.7 fL High 80.0-100.0 [facility] Comment on above: Performed By: #### 2 [id number] #### [facility] [address] [place] [address] Monocytes (Bld) [#/Vol] 0.4 E9/L Normal 0.2-1.0 [facility] Comment on above: Performed By: #### 2 [id number] #### [facility] [address] [place] [address] Neutrophils (Bld) [#/Vol] 2.8 E9/L Normal 2.0-7.5 [facility] Comment on above: Performed By: #### 2 [id number] #### [facility] [address] [place] [address] Neutrophils/100 WBC (Bld) 62.8 % Normal 36.0-75.0 [facility] Comment on above: Performed By: #### 2 [id number] #### [facility] [address] [place] [address] Platelet 84.0 E9/L Low 150.0-500.0 [facility] Comment on above: Performed By: #### 2 [id number] #### [facility] [address] [place] [address] Platelet mean volume (Bld) [Entitic vol] 8.2 fL Normal 6.4-10.8 [facility] Comment on above: Performed By: #### 2 [id number] #### [facility] [address] [place] [address] RBC (Bld) [#/Vol] 4.0 E12/L Low 4.3-5.9 [facility] Comment on above: Performed By: #### 2 [id number] #### [facility] [address] [place] [address] WBC corrected for nucl RBC Auto (Bld) [#/Vol] 4.4 E9/L Normal 4.0-11.0 [facility] Comment on above: Performed By: #### 2 [id number] #### [facility] [address] [place] [address] CMPon 11-11-2024 Albumin [Mass/Vol] 3.6 g/dL Normal 3.3-5.0 [facility] Comment on above: Performed By: #### 2 [id number] #### [facility] [address] [place] [address] Albumin/Globulin (S) [Mass conc ratio] 1.0 Low 1.1-2.2 [facility] Comment on above: Performed By: #### 2 [id number] #### [facility] [address] [place] [address] ALP [Catalytic activity/Vol] 159 Int._Unit/L High 21-98 [facility] Comment on above: Performed By: #### 2 [id number] #### [facility] [address] [place] [address] ALT No additional P-5'-P [Catalytic activity/Vol] 46 Int._Unit/L Normal 6-46 [facility] Comment on above: Performed By: #### 2 [id number] #### [facility] [address] [place] [address] Anion gap [Moles/Vol] 8 mmol/L Normal 6-16 [facility] Comment on above: Performed By: #### 2 [id number] #### [facility] [address] [place] [address] AST [Catalytic activity/Vol] 59 Int._Unit/L High 5-43 [facility] Comment on above: Performed By: #### 2 [id number] #### [facility] [address] [place] [address] Bilirubin [Mass/Vol] 2.6 mg/dL High 0.0-1.1 [facility] Comment on above: Performed By: #### 2 [id number] #### [facility] [address] [place] [address] Calcium [Mass/Vol] 9.0 mg/dL Normal 8.9-11.1 [facility] Comment on above: Performed By: #### 2 440352 #### [facility] [address] [place] [address] Chloride [Moles/Vol] 105 mmol/L Normal 101-111 [facility] Comment on above: Performed By: #### 2 [id number] #### [facility] [address] [place] [address] CO2 [Moles/Vol] 27 mmol/L Normal 21-31 [facility] Comment on above: Performed By: #### 2 [id number] #### [facility] [address] [place] [address] Creatinine [Mass/Vol] 0.5 mg/dL Normal 0.5-1.3 [facility] Comment on above: Performed By: #### 2 [id number] #### [facility] [address] [place] [address] Globulin (S) [Mass/Vol] 3.5 g/dL Normal 1.4-4.0 [facility] Comment on above: Performed By: #### 2 [id number] #### [facility] [address] [place] [address] Glucose [Mass/Vol] 96 mg/dL Normal 55-199 [facility] Comment on above: Performed By: #### 2 [id number] #### [facility] [address] [place] [address] Potassium [Moles/Vol] 4.4 mmol/L Normal 3.5-5.3 [facility] Comment on above: Performed By: #### 2 [id number] #### [facility] [address] [place] [address] Protein [Mass/Vol] 7.1 g/dL Normal 6.0-7.8 [facility] Comment on above: Performed By: #### 2 [id number] #### [facility] [address] [place] [address] Sodium [Moles/Vol] 136 mmol/L Normal 135-145 [facility] Comment on above: Performed By: #### 2 [id number] #### [facility] [address] [place] [address] Urea nitrogen [Mass/Vol] 12 mg/dL Normal 5-21 [facility] Comment on above: Performed By: #### 2 [id number] #### [facility] [address] [place] [address] Urea nitrogen/Creatinine [Mass ratio] 24 No Units High 10-20 [facility] Comment on above: Performed By: #### 2 [id number] #### [facility] [address] [place] [address] PT & PTTon 11-11-2024 aPTT Coag (PPP) [Time] 38.8 second(s) High 25.1-36.5 [facility] Comment on above: Result Comment: Para [...] coagulation reagent and instrumentation as [facility] Currently there are no coagulation studies available worldwide for children to 14 days, and no normal ranges. Heparin therapeutic range (represented by Anti-Factor Xa activity of 0.2 - 0.4 U/mL) corresponds to PTT of 56.6 - 109.0 sec. Performed By: #### 1 [id number] #### [facility] [address] [place] [address] INR Coag (PPP) [Relative time] 1.33 {INR} Invalid Interpretation Code [facility] Comment on above: Result Comment: INR results are specifically intended to assess patients stabilized on long-term Anticoagulation therapy suggested INR???s ???Less Intensive Anticoagulation??? 2.0 ??? 3.0 Conventional Range 3.0 ??? 4.5 Performed By: #### 1 [id number] #### [facility] [address] [place] [address] PT Coag (PPP) [Time] 14.9 second(s) High 9.4-12.5 [facility] Comment on above: Result Comment: 15 d ays - 4 weeks 1 - 5 months 6 -11 months 1 ??? 5 years 6 ??? 10 years 11 -17 years Mean: 11.2 (9.5 ??? 12.6) Mean: 11.0 (9.7 ??? 12.8) Mean: 11.0 (9.8 ??? 13.0) Mean: 11.3 (9.9 ??? 13.4) Mean: 11.7 (10.0 ??? 14.6) Mean: 11.8 (10.0 - 14.1) Pediatric Reference ranges were obtained from a study by vaishali Nobles al. prepared from 1437 samples obtained at 7 different centers using the same coagulation reagent and instrumentation as [facility]. Currently there are no coagulation studies available worldwide for children to 14 days, and no normal ranges. Performed By: #### 1 [id number] #### [facility] [address] [place] [address] Liveron 11-11-2024 US Liver Exam Date/Time: 11/11/2024 08:57 EST Reason for Exam: K74.60;Elevated LFTs Report IMPRESSION: Cirrhotic liver morphology without focal hepatic lesion. Cholelithiasis. EXAMINATION: US Liver HISTORY: Cirrhosis. Cholelithiasis. TECHNIQUE: Sonography of the right upper quadrant was performed. Images were obtained and stored in a permanent archive. Unless otherwise stated, incidental findings identified in this report do not require routine follow-up imaging.\[id number]\ COMPARISON: 05/24/2024. RESULT: Pancreas: Normal sonographic appearance of the visualized portions. Liver: Cirrhotic liver morphology. No suspicious liver lesion sonographically. Gallbladder: Cholelithiasis, similar to prior. Biliary Ducts: No intrahepatic or extrahepatic bile duct dilation. CBD measures 0.7 cm. Right Kidney: Imaged portions unremarkable. Ascites: None. Other: Recanalized periumbilical vein. Ordering Provider: Mario Evans FINAL REPORT Dictated: 11/11/2024 2:39 pm Camacho Almeida MD Signed (Electronic Signature): 11/11/2024 2:39 pm Signed by: Camacho Almeida MD Transcribed by: JUNIOR Technologist: LEONARDA Normal [facility] eGFRon 11-11-2024 eGFR 132 mL/min/1.73 m2 Normal >=59 [facility] Comment on above: Performed By: #### 1 [id number] #### [facility] [address] [place] [address] Ambulatory Visit Summaryon 0 10-05-2024 Ambulatory Visit Summary Ambulatory Visit Summary WILL RALPH :1985 Visit Date:10/05/2024 Ambulatory Visit Instructions Your Diagnosis Cirrhosis HTN (hypertension) Liver cirrhosis, alcoholic Esophageal varices Thrombocytopenia Anemia Right leg pain BMI 27.0-27.9,adult Overweight Leg pain Pain Peripheral vascular disease Your Care Team Attending Physician - Vic Carrion Primary Care Physician - Vic Carrion This Is Your Medications List Misc Prescription (BP cuff device and appropriate size please) Misc Prescription (Misc DME Prescription) Misc Prescription (Misc DME Prescription) Misc Prescription (Misc DME Prescription) Misc Prescription (lactulose (lactulose 10 g/15 mL Oral Syrup)) carvedilol (Coreg 6.25 mg Tab) furosemide (furosemide 20 mg Tab) magnesium citrate naloxone (Narcan 4 mg/0.1 mL nasal spray) ondansetron (Zofran ODT 4 mg Tab) oxycodone (oxyCODONE 5 mg Tab) spironolactone (spironolactone 50 mg Tab) Procedures Performed EGD - esophagogastroduodenosc opy (11/11/2023), Esophagogastroduodenosc opy (09/30/2023), I and D, Jaw. Discharge Vitals Heart Rate (Peripheral) 78 Blood Pressure 138/78 Height 170 cm Height 67 in Weight 78.5 kg Weight 173.063 lb BMI 27.16 What to do next Scheduled Follow-Up Appointments Thursday 8:30 AM EST With: Where: [facility] Thursday 8:15 AM EDT With: Where: [facility] Thursday 9:15 AM EDT With: Carrol MULTANI, Mario Xiong Where: [facility] [address] [place] [address] [place] [address]- Thursday 8:40 AM EDT With: Vic Carrion Where: [facility] [address], [place] [address] 2:40 PM EST With: Kavon Lu DO Where: [facility] You Need to Schedule the Following Appointments Follow Up with Vic Carrion, [facility], [facility] When: In 6 months Comments: sooner if needed. keep specialists appointments. Where: [address], [address] [facility] [address] [place] [phone] Medications What How Much When Why Instructions Unchanged carvedilol (Coreg 6.25 mg Tab) 1 Tablets By Mouth 2 times a day HTN (hypertension) Pickup at [facility] Unchanged furosemide (furosemide 20 mg Tab) 1 Tablets By Mouth Every day Unchanged magnesium citrate By Mouth Unchanged Misc Prescription (BP cuff device and appropriate size please) See instructions HTN (hypertension) BP Device/ machine and cuff (size appropriate) Unchanged Misc Prescription (lactulose (lactulose 10 g/ 15 mL Oral Syrup)) 0 Unchanged Misc Prescription (Misc DME Prescription) See instructions Reading SAP Dressing 4 x 4 dressing Unchanged Misc Prescription (Misc DME Prescription) See instructions LiquidIV hydration Unchanged Misc Prescription (Misc DME Prescription) See instructions Muscle & joint balm CBD 880mg Unchanged naloxone (Narcan 4 mg/ 0.1 mL nasal spray) 4 Milligram Nasal Inhalation As Directed Pain for suspected overdose symptoms Pickup at [facility] Unchanged ondansetron (Zofran ODT 4 mg Tab) 1 Tablets By Mouth 3 times a day as needed for Nausea Nausea Unchanged oxycodone (oxyCODONE 5 mg Tab) 0.5 tab By Mouth Every 6 hours as needed for for pain Peripheral vascular disease Leg pain for leg pain- severe pain only Pickup at [facility] Unchanged spironolactone (spironolactone 50 mg Tab) 1 Tablets By Mouth Every day Pharmacy Information [facility]: [address] [place], [place] [phone] Allergies Definity (Back Pain) amoxicillin (Unknown) penicillin (unknown) Problems Ongoing - Any problem that you are currently receiving treatment for. Abnormal stress test Alcohol use disorder in remission Anemia BMI 26.0-26.9,adult Cellulitis of right leg Cholelithiases Cirrhosis Dependent edema Diarrhea Elevated fasting glucose Elevated INR Elevated liver enzymes Epigastric pain Esophageal varices Headache Hemolytic anemia HTN (hypertension) Hypokalemia Iron deficiency anemia Liver cirrhosis, alcoholic Megaloblastic anemia Nausea Portal venous hypertension Right leg pain Screening for cardiovascular condition Screening for prostate cancer Severe back pain Smokeless tobacco use Superficial thrombophlebitis of leg Thrombocytopenia Tobacco user Varicose veins of legs Venous ulcer of right leg Vitamin D deficiency Historical - Any problem that you are no longer receiving treatment for. Abscess of left leg excluding foot Adverse reaction to drug Cellulitis of leg, right Denies Dysuria Heavy alcohol use Patient Survey You may receive a survey via text or e-mail asking about your office visit. Please share your experience wi (more content not included)... Normal [facility] Office/Clini c Noteon 10-05-2024 Family Medicine Office/Clinic Note Family Medicine Office/Clinic Note Chief Complaint New to me. 3 mo. f/u HPI Staff New to me. 3 mo. f/u Pt. states would like a prescription for right leg pain, was given oxycodone last year and did help, did try another medication and Tylenol does not work. Sees oncology for labs for cirrhosis, was anemic has since resolved. Hypertension. How often are you checking your blood pressure? not checking What are your average readings? n/a Have you had any ER visits or any hospitalizations since last visit? Are you compliant with your diet? yes Do you exercise? nojust working Are you compliant with your medications? yes Are you having difficulty affording your medications? no Do you have side effects from the medication? no Have you had any recent cardiopulmonary testing? Do you have any of the following symptoms? Chest Pain? no Palpitations? no GA/SOB? no Headache? no Peripheral Edema? no Light Headedness? no History of Present Illness Will is a 39 year old male presenting for HTn, cirrhosis follow up. He follows with oncology for anemia and thrombocytopenia. He also follows with Dr. Evans for esophageal varices. He had cellulitis in June and was given a prescription for doxycycline. He states he saw a vascular doctor in [place] from when he was at [facility]. 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 He denies numbness and tingling. He denies discoloration. He states doxycycline was helping somewhat with cellulitis but this pain is different. He states in January he was prescribed oxycodone 5 mg and would only take half a tablet when the pain flared up and this has worked for him in the past. He denies change in sensation. He states he wears compression socks daily. He notes this pain is an ongoing issue and is willing to see pain management. Patient with hypertension Takes Coreg and spironolactone and Lasix. Patient states he is only been taking his spironolactone. His blood pressure is running elevated today. Patient denies any chest pain or shortness of breath no significant edema out of the ordinary. Refill will be sent for coreg and encouraged patient to take this. LIVER Cirrhosis - stopped taking Lactulose all together- about month ago. NO abdominal pain, no confusion. no bloating. no constipation or diarrhea. stopped taking Lasix- has been a month- Patient on Spironolactone- he has been taking that He has not taken the Coreg recently for the past few weeks Esophageal varices Follows with Dr Evans- no bleeding. No heartburn symptoms, no black or bloody stool reported Thrombocytopenia/and anemia- Anemia has been improving platelets are stable 70, previous 67. Hgb improved Dr Lees- has been talking to Gastroenterology- regarding Leg- cellulitis Patient went to a specialist in [place]- Vascular Dr Bertrand - Angiogram was done, offered lymphedema clinic. not indicated Patient called in back in Jun - Doxycycline 100 mg BID sent - he only took for 2 days . it went away. He has not been hospitalized since April- Patient had found a blood clot in leg in the past- over the summer in april. He continues to wear compression stockings every day Abnormal stress testing Went to see Dr Liz- had a reaction to the stress test medication and was in severe pain over the summer. Patient with no complaints of chest pain no shortness of breath no significant leg edema greater than usual. Review of Systems PHQ Score Initial Depression Screen Score: 0 SCORE Physical Exam Vitals & Measurements HR: 78(Peripheral) BP: 138/78 SpO2: 100% HT: 67 in HT: 170 cm WT: 78.5 kg WT: 173.063 lb BMI: 27.16 General: Well developed, well nourished, in no acute distress Mouth: Mucous membranes moist. Normal oropharynx, and posterior pharynx without lesions or exudates. Teeth cracked and/or missing. Tongue normal Neck: Neck supple. No masses or palpable cervical nodes. Trachea midline. Thyroid without nodules, masses, tenderness, or enlargement Lungs: Normal respiratory effort and clear to auscultation Cardio: Regular rate and rhythm, normal S1 and S2, no murmur, no rub Abdomen: Soft, non-distended, non-tender. no G/R/S/Masses Musculoskeletal: No deformity or scoliosis noted. Normal range of motion. Joints normal. No erythema, edema, effusion, or ecchymosis Extremity: No clubbing, cyanosis, edema, or deformity, with normal ROM in both upper and lower bilateral extremities Neurologic: Grossly normal Skin: No rashes, ulcerations, or suspicious lesions Mental Status: Alert and oriented x3. Normal mood and affect Assessment/Plan 1. Cirrhosis (K74.60: Unspecified cirrhosis of liver) Chronic and stable Patient to continue to avoid alcohol or hepatotoxic agents patient to continue to follow with Dr. Evans and Dr. Valdez with hematology.- he has since [facility] Liver enzymes are elevated with recent lab work but trends up and down. patient has stopped (more content not included)... Normal [facility] Comment on above: Result Comment: Elec tronically Signed By: Vic Carrion\.br\Date and Time Signed: 10/05/24 09:53 EST Free K+L Lt Chains,Qn,Son Immunoglobulin light chains.kappa.free (S) [Mass/Vol] 21.1 mg/L High 3.3-19.4 [facility] Comment on above: Performed By: #### 2 [id number] #### [facility] [address] [place] [address] Immunoglobulin light chains.kappa.free/Im munoglobulin light chains.lambda.free (S) [Mass ratio] 1.50 Invalid Interpretation Code 0.26-1.65 [facility] Comment on above: Result Comment: Perf ormed at: [facility] [address] [id number] PhD Poncho Prater Performed By: #### 2 [id number] #### [facility] [address] [place] [address] Immunoglobulin light chains.lambda.free [Mass/Vol] 14.1 mg/L Invalid Interpretation Code 5.7-26.3 [facility] Comment on above: Performed By: #### 2 [id number] #### [facility] [address] [place] [address] Haptoglobinon 09-20-2024 Haptoglobin [Mass/Vol] mg/dL Low 17-317 [facility] Comment on above: Result Comment: Perf ormed at: [facility] [address] [id number] PhD Famisaiahcharmaine Prater Performed By: #### 2 [id number] #### [facility] [address] [place] [address] MELLISA and PE, Serumon 09-20-19 25 Albumin [Mass/Vol] 3.4 g/dL Invalid Interpretation Code 2.9-4.4 [facility] Comment on above: Performed By: #### 1 [id number] #### [facility] [address] [place] [address] Albumin/Globulin [Mass ratio] 1.0 {ratio} Invalid Interpretation Code 0.7-1.7 [facility] Comment on above: Performed By: #### 1 [id number] #### [facility] [address] [place] [address] Alpha 1 globulin Elph [Mass/Vol] 0.2 g/dL Invalid Interpretation Code 0.0-0.4 [facility] Comment on above: Performed By: #### 1 [id number] #### [facility] [address] [place] [address] Alpha 2 globulin Elph [Mass/Vol] 0.5 g/dL Invalid Interpretation Code 0.4-1.0 [facility] Comment on above: Performed By: #### 1 [id number] #### [facility] [address] [place] [address] Beta globulin Elph [Mass/Vol] 1.0 g/dL Invalid Interpretation Code 0.7-1.3 [facility] Comment on above: Performed By: #### 1 [id number] #### [facility] [address] [place] [address] Gamma globulin Elph [Mass/Vol] 1.9 g/dL High 0.4-1.8 [facility] Comment on above: Performed By: #### 1 [id number] #### [facility] [address] [place] [address] Globulin (S) [Mass/Vol] 3.7 g/dL Invalid Interpretation Code 2.2-3.9 [facility] Comment on above: Performed By: #### 1 [id number] #### [facility] [address] [place] [address] IgA [Mass/Vol] 653 mg/dL High 90-386 [facility] Comment on above: Performed By: #### 1 [id number] #### [facility] [address] [place] [address] IgG [Mass/Vol] 1726 mg/dL High 603-1613 [facility] Comment on above: Performed By: #### 1 [id number] #### [facility] [address] [place] [address] IgM [Mass/Vol] 72 mg/dL Invalid Interpretation Code 20-172 [facility] Comment on above: Performed By: #### 1 [id number] #### [facility] [address] [place] [address] Interpretation IEP [Interp] Comment Invalid Interpretation Code [facility] Comment on above: Result Comment: No m onoclonality detected. Performed By: #### 1 [id number] #### [facility] [address] [place] [address] Laboratory comment Parth (Report) Comment Invalid Interpretation Code [facility] Comment on above: Result Comment: Prot ein electrophoresis scan will follow via computer, mail, or automation technician delivery. Performed at: [address] [id number] PhD Poncho Prater Performed By: #### 1 [id number] #### [facility] [address] [place] [address] Protein [Mass/Vol] 7.1 g/dL Invalid Interpretation Code 6.0-8.5 [facility] Comment on above: Performed By: #### 1 [id number] #### [facility] [address] [place] [address] Protein.monoclonal Elph [Mass/Vol] Not Observed Invalid Interpretation Code Not Observed [facility] Comment on above: Performed By: #### 1 [id number] #### [facility] [address] [place] [address] CBC w/ Auto Diffon 5 Basophils/100 WBC (Bld) 0.6 % Normal 0.0-2.0 [facility] Comment on above: Performed By: #### 2 [id number] #### [facility] [address] [place] [address] Basophils/Leukocytes Auto (Bld) [Pure # fraction] 0.0 E9/L Normal 0.0-0.2 [facility] Comment on above: Performed By: #### 2 [id number] #### [facility] [address] [place] [address] Eosinophils (Bld) [#/Vol] 0.2 E9/L Normal 0.0-0.5 [facility] Comment on above: Performed By: #### 2 [id number] #### [facility] [address] [place] [address] Eosinophils/100 WBC (Bld) 3.5 % Normal 0.0-8.0 [facility] Comment on above: Performed By: #### 2 [id number] #### [facility] [address] [place] [address] Erythrocyte distribution width (RBC) [Ratio] 15.1 % High 10.9-14.2 [facility] Comment on above: Performed By: #### 2 [id number] #### [facility] [address] [place] [address] Hematocrit (Bld) [Volume fraction] 38.8 % Normal 37.7-49.0 [facility] Comment on above: Performed By: #### 2 [id number] #### [facility] [address] [place] [address] Hemoglobin (Bld) [Mass/Vol] 13.9 g/dL Normal 13.5-17.5 [facility] Comment on above: Performed By: #### 2 [id number] #### [facility] [address] [place] [address] Lymphocytes (Bld) [#/Vol] 1.1 E9/L Normal 1.0-4.0 [facility] Comment on above: Performed By: #### 2 [id number] #### [facility] [address] [place] [address] Lymphocytes/100 WBC (Bld) 25.0 % Normal 14.0-50.0 [facility] Comment on above: Performed By: #### 2 [id number] #### [facility] [address] [place] [address] MCH (RBC) [Entitic mass] 37.0 pg High 27.0-34.0 [facility] Comment on above: Performed By: #### 2 [id number] #### [facility] [address] [place] [address] MCHC (RBC) [Mass/Vol] 35.8 g/dL Normal 31.4-36.0 [facility] Comment on above: Performed By: #### 2 [id number] #### [facility] [address] [place] [address] MCV (RBC) [Entitic vol] 103.5 fL High 80.0-100.0 [facility] Comment on above: Performed By: #### 2 [id number] #### [facility] [address] [place] [address] Monocytes (Bld) [#/Vol] 0.4 E9/L Normal 0.2-1.0 [facility] Comment on above: Performed By: #### 2 [id number] #### [facility] [address] [place] [address] Neutrophils (Bld) [#/Vol] 2.8 E9/L Normal 2.0-7.5 [facility] Comment on above: Performed By: #### 2 [id number] #### [facility] [address] [place] [address] Neutrophils/100 WBC (Bld) 62.7 % Normal 36.0-75.0 [facility] Comment on above: Performed By: #### 2 [id number] #### [facility] [address] [place] [address] Platelet 93.0 E9/L Low 150.0-500.0 [facility] Comment on above: Result Comment: Tierney pheral smear review performed. Performed By: #### 2 [id number] #### [facility] [address] [place] [address] Platelet mean volume (Bld) [Entitic vol] 7.7 fL Normal 6.4-10.8 [facility] Comment on above: Performed By: #### 2 [id number] #### [facility] [address] [place] [address] RBC (Bld) [#/Vol] 3.7 E12/L Low 4.3-5.9 [facility] Comment on above: Performed By: #### 2 [id number] #### [facility] [address] [place] [address] WBC corrected for nucl RBC Auto (Bld) [#/Vol] 4.5 E9/L Normal 4.0-11.0 [facility] Comment on above: Performed By: #### 2 [id number] #### [facility] [address] [place] [address] CHEMISTRYOrdered By: SYSTEM SYSTEM on 09-16-2024 Albumin [Mass/Vol] 3.7 g/dL Normal 3.3 - 5.0 gm/dL R emisol Chem Albumin/Globulin [Mass ratio] 1.0 {ratio} Low 1.1 - 2.2 Remisol Chem ALP [Catalytic activity/Vol] 178 [iU]/d High 21 - 98 Int._Unit/L Rem[facility] Chem ALT No additional P-5'-P [Catalytic activity/Vol] 49 [iU]/d High 6 - 46 Int._Unit/L [facility] Anion gap [Moles/Vol] 10 mmol/L Normal 6 - 16 mEq/L [facility] AST [Catalytic activity/Vol] 72 [iU]/d High 5 - 43 Int._Unit/L [facility] Bilirubin [Mass/Vol] 5.2 mg/dL High 0.0 - 1.1 mg/dL [facility] Calcium [Mass/Vol] 9.4 mg/dL Normal 8.9 - 11. 1 mg/dL [facility] Chloride [Moles/Vol] 100 mmol/L Low 101 - 1 11 mmol/L [facility] CO2 [Moles/Vol] 28 mmol/L Normal 21 - 31 mmol/L Remis ol Chem Creatinine [Mass/Vol] 0.5 mg/dL Normal 0.5 - 1.3 mg/dL [facility] eGFR 132 mL/min/1.73 m2 Normal >=59mL/mi n/1.73 m2 [facility] Ferritin [Mass/Vol] 343 ng/mL High 24 - 336 ng/mL R emisol Chem Globulin (S) [Mass/Vol] 3.7 g/dL Normal 1.4 - 4.0 gm/dL [facility] Glucose [Mass/Vol] 125 mg/dL Normal 55 - 199 mg/dL Re misol Chem Iron [Mass/Vol] 279 ug/dL High 35 - 153 mcg/dL Gerardo paulina Chem Iron binding capacity [Mass/Vol] 294 ug/dL Normal 250 - 400 mcg/dL Remisol Chem Iron saturation [Mass fraction] 95 % High 20 - 50 % Rem[facility] Chem LDH 278 [iU]/d High 93 - 218 Int._Unit/L [facility] Potassium [Moles/Vol] 4.1 mmol/L Normal 3.5 - 5.3 mmol/L [facility] Protein [Mass/Vol] 7.4 g/dL Normal 6.0 - 7.8 gm/dL R emisol Chem Sodium [Moles/Vol] 134 mmol/L Low 135 - 145 mmol/L [facility] Transferrin [Mass/Vol] 210 mg/dL Normal 200 - 370 mg/dL [facility] Urea nitrogen [Mass/Vol] 9 mg/dL Normal 5 - 21 mg/dL [facility] Urea nitrogen/Creatinine [Mass ratio] 18 mg/mg Normal 10 - 20 [facility] CMPon 09-16-2024 Albumin [Mass/Vol] 3.7 g/dL Normal 3.3-5.0 [facility] Comment on above: Performed By: #### 2 [id number] #### [facility] [address] [place] [address] Albumin/Globulin (S) [Mass conc ratio] 1.0 Low 1.1-2.2 [facility] Comment on above: Performed By: #### 2 [id number] #### [facility] [address] [place] [address] ALP [Catalytic activity/Vol] 178 Int._Unit/L High 21-98 [facility] Comment on above: Performed By: #### 2 [id number] #### [facility] [address] [place] [address] ALT No additional P-5'-P [Catalytic activity/Vol] 49 Int._Unit/L High 6-46 [facility] Comment on above: Performed By: #### 2 [id number] #### [facility] [address] [place] [address] Anion gap [Moles/Vol] 10 mmol/L Normal 6-16 [facility] Comment on above: Performed By: #### 2 [id number] #### [facility] [address] [place] [address] AST [Catalytic activity/Vol] 72 Int._Unit/L High 5-43 [facility] Comment on above: Performed By: #### 2 [id number] #### [facility] [address] [place] [address] Bilirubin [Mass/Vol] 5.2 mg/dL High 0.0-1.1 [facility] Comment on above: Performed By: #### 2 [id number] #### [facility] [address] [place] [address] Calcium [Mass/Vol] 9.4 mg/dL Normal 8.9-11.1 [facility] Comment on above: Performed By: #### 2 [id number] #### [facility] [address] [place] [address] Chloride [Moles/Vol] 100 mmol/L Low 101-111 [facility] Comment on above: Performed By: #### 2 [id number] #### [facility] [address] [place] [address] CO2 [Moles/Vol] 28 mmol/L Normal 21-31 [facility] Comment on above: Performed By: #### 2 [id number] #### [facility] [address] [place] [address] Creatinine [Mass/Vol] 0.5 mg/dL Normal 0.5-1.3 [facility] Comment on above: Performed By: #### 2 [id number] #### [facility] [address] [place] [address] Globulin (S) [Mass/Vol] 3.7 g/dL Normal 1.4-4.0 [facility] Comment on above: Performed By: #### 2 [id number] #### [facility] [address] [place] [address] Glucose [Mass/Vol] 125 mg/dL Normal 55-199 [facility] Comment on above: Performed By: #### 2 [id number] #### [facility] [address] [place] [address] Potassium [Moles/Vol] 4.1 mmol/L Normal 3.5-5.3 [facility] Comment on above: Performed By: #### 2 [id number] #### [facility] [address] [place] [address] Protein [Mass/Vol] 7.4 g/dL Normal 6.0-7.8 [facility] Comment on above: Performed By: #### 2 [id number] #### [facility] [address] [place] [address] Sodium [Moles/Vol] 134 mmol/L Low 135-145 [facility] Comment on above: Performed By: #### 2 [id number] #### [facility] [address] [place] [address] Urea nitrogen [Mass/Vol] 9 mg/dL Normal 5-21 [facility] Comment on above: Performed By: #### 2 [id number] #### [facility] [address] [place] [address] Urea nitrogen/Creatinine [Mass ratio] 18 No Units Normal 10-20 [facility] Comment on above: Performed By: #### 2 [id number] #### [facility] [address] [place] [address] Ferritinon 09-16-2024 Ferritin [Mass/Vol] 343 ng/mL High 24-336 [facility] Comment on above: Performed By: #### 2 [id number] #### [facility] [address] [place] [address] HEMATOLOGYOrdered By: SYSTEM SYSTEM on 09-16-2024 Basophils/100 WBC (Bld) 0.6 % Normal 0.0 - 2.0 % [facility] Basophils/Leukocytes Auto (Bld) [Pure # fraction] 0.0 E9/L Normal 0.0 - 0.2 E9/L [facility] Eosinophils (Bld) [#/Vol] 0.2 E9/L Normal 0.0 - 0.5 E9/L [facility] Eosinophils/100 WBC (Bld) 3.5 % Normal 0.0 - 8.0 % [facility] Erythrocyte distribution width (RBC) [Ratio] 15.1 % High 10.9 - 14.2 % [facility] Hematocrit (Bld) [Volume fraction] 38.8 % Normal 37.7 - 49.0 % [facility] Hemoglobin (Bld) [Mass/Vol] 13.9 g/dL Normal 13.5 - 17.5 gm/dL [facility] Lymphocytes (Bld) [#/Vol] 1.1 E9/L Normal 1.0 - 4.0 E9/L [facility] Lymphocytes/100 WBC (Bld) 25.0 % Normal 14.0 - 50.0 % [facility] MCH (RBC) [Entitic mass] 37.0 pg High 27.0 - 34.0 pg [facility] MCHC (RBC) [Mass/Vol] 35.8 g/dL Normal 31.4 - 36.0 gm/dL [facility] MCV (RBC) [Entitic vol] 103.5 fL High 80.0 - 100.0 fL [facility] Monocytes (Bld) [#/Vol] 0.4 E9/L Normal 0.2 - 1.0 E9/L [facility] Monocytes/100 WBC (Bld) 8.2 % Normal 4.0 - 14.0 % [facility] Neutrophils (Bld) [#/Vol] 2.8 E9/L Normal 2.0 - 7.5 E9/L [facility] Neutrophils/100 WBC (Bld) 62.7 % Normal 36.0 - 75.0 % [facility] Platelet 93.0 E9/L Low 150.0 - 500.0 E9/L [facility] Comment on above: Result Comment: Tierney pheral smear review performed. Platelet mean volume (Bld) [Entitic vol] 7.7 fL Normal 6.4 - 10.8 fL [facility] RBC (Bld) [#/Vol] 3.7 E12/L Low 4.3 - 5.9 E12/L Re misol Heme WBC corrected for nucl RBC Auto (Bld) [#/Vol] 4.5 E9/L Normal 4.0 - 11.0 E9/L [facility] Ironon 09-16-2024 Iron [Mass/Vol] 279 microgram/dL High 35-153 [facility] Comment on above: Performed By: #### 2 [id number] #### [facility] [address] [place] [address] Iron Saturationon 09-16-2024 Iron binding capacity [Mass/Vol] 294 microgram/dL Normal 250-400 [facility] Comment on above: Performed By: #### 2 [id number] #### [facility] [address] [place] [address] Iron saturation [Mass fraction] 95 % High 20-50 [facility] Comment on above: Performed By: #### 2 [id number] #### [facility] [address] [place] [address] LDHon 09-16-2024 LDH 278 Int._Unit/L High 93-218 [facility] Comment on above: Performed By: #### 2 [id number] #### [facility] [address] [place] [address] Transferrinon 09-16-2024 Transferrin [Mass/Vol] 210 mg/dL Normal 200-370 [facility] Comment on above: Order Comment: Trans rojas order added by Discern Rule: gl_ftmc_add_iron_trans . Performed By: #### 2 [id number] #### [facility] [address] [place] [address] eGFRon 09-16-2024 eGFR 132 mL/min/1.73 m2 Normal >=59 [facility] Comment on above: Performed By: #### 1 [id number] #### [facility] [address] [place] [address] Ambulatory Visit Summaryon 1 10-20-2023 Ambulatory Visit Summary Ambulatory Visit Summary WILL RALPH :1985 Visit Date:08/19/2024 Ambulatory Visit Instructions Your Diagnosis BMI 26.0-26.9,adult Cirrhosis Esophageal varices HTN (hypertension) Thrombocytopenia Anemia Screening for cardiovascular condition Screening for prostate cancer Your Care Team Attending Physician - Loreta Padilla Primary Care Physician - Loreta Padilla This Is Your Medications List Misc Prescription (lactulose (lactulose 10 g/15 mL Oral Syrup)) furosemide (furosemide 20 mg Tab) Contact prescribing physician if questions or concerns Misc Prescription (BP cuff device and appropriate size please) Misc Prescription (Misc DME Prescription) Misc Prescription (Misc DME Prescription) Misc Prescription (Misc DME Prescription) bifidobacterium-lactoba cillus (bifidobacterium-lactob acillus oral tablet) carvedilol (Coreg 6.25 mg Tab) cholecalciferol (cholecalciferol 50,000 intl units oral capsule) folic acid (folic acid 1 mg Tab) magnesium citrate multivitamin (Tab-A-Scott oral tablet) naloxone (Narcan 4 mg/0.1 mL nasal spray) ondansetron (Zofran ODT 4 mg Tab) oxycodone (oxyCODONE 5 mg Tab) spironolactone (spironolactone 50 mg Tab) Procedures Performed EGD - esophagogastroduodenosc opy (11/11/2023), Esophagogastroduodenosc opy (09/30/2023), I and D, Jaw. Discharge Vitals Temperature (Temporal Artery) 36.9 ???C Heart Rate (Peripheral) 70 Respiratory Rate 18 Blood Pressure 146/68 Height 170 cm Height 67 in Weight 76.6 kg Weight 168.874 lb BMI 26.51 What to do next Scheduled Follow-Up Appointments 2024 1:20 PM EST With: Kavon Lu DO Where: Oncology Thursday 8:15 AM EDT With: Where: [facility] Thursday 9:15 AM EDT With: Carrol MULTANI, Mario Xiong Where: [facility] [address] [place] [address] [address] [place] [address]- You Need to Complete the Following Ammonia Level, Blood, Routine collect, 08/19/24, Order for future visit, Lab Collect, Cirrhosis, Print Label By Order Location Lipid Panel, Blood, Routine collect, 08/19/24, Order for future visit, Lab Collect, Screening for cardiovascular condition, Print Label By Order Location PSA Screen, Total, Blood, Routine collect, 08/19/24, Order for future visit, Lab Collect, Screening for prostate cancer, Print Label By Order Location Medications What How Much When Why Instructions New furosemide (furosemide 20 mg Tab) 1 Tablets By Mouth Every day New Misc Prescription (lactulose (lactulose 10 g/ 15 mL Oral Syrup)) 0 Unchanged bifidobacterium-lactoba cillus (bifidobacterium-lactob acillus oral tablet) 1 Tablets By Mouth Every day Contact prescribing physician if questions or concerns Unchanged carvedilol (Coreg 6.25 mg Tab) 1 Tablets By Mouth 2 times a day Contact prescribing physician if questions or concerns Unchanged cholecalciferol (cholecalciferol 50,000 intl units oral capsule) 1 Capsules By Mouth Every 7 days Vitamin D deficiency Contact prescribing physician if questions or concerns Unchanged folic acid (folic acid 1 mg Tab) 1 Tablets By Mouth Every day Anemia Contact prescribing physician if questions or concerns Unchanged magnesium citrate By Mouth Contact prescribing physician if questions or concerns Unchanged Misc Prescription (BP cuff device and appropriate size please) See instructions HTN (hypertension) BP Device/ machine and cuff (size appropriate) Contact prescribing physician if questions or concerns Unchanged Misc Prescription (Misc DME Prescription) See instructions Reading SAP Dressing 4 x 4 dressing Contact prescribing physician if questions or concerns Unchanged Misc Prescription (Misc DME Prescription) See instructions LiquidIV hydration Contact prescribing physician if questions or concerns Unchanged Misc Prescription (Misc DME Prescription) See instructions Muscle & joint balm CBD 880mg Contact prescribing physician if questions or concerns Unchanged multivitamin (Tab-A-Scott oral tablet) 1 Tablets By Mouth Every day Contact prescribing physician if questions or concerns Unchanged naloxone (Narcan 4 mg/ 0.1 mL nasal spray) 4 Milligram Nasal Inhalation As Directed Pain for suspected overdose symptoms Contact prescribing physician if questions or concerns Unchanged ondansetron (Zofran ODT 4 mg Tab) 1 Tablets By Mouth 3 times a day as needed for Nausea Nausea Contact prescribing physician if questions or concerns Unchanged oxycodone (oxyCODONE 5 mg Tab) 0.5 tab By Mouth Every 6 hours as needed for for pain Peripheral vascular disease Leg pain for leg pain- severe pain only Contact prescribing physician if questions or concerns Unchanged spironolactone (spironolactone 50 mg Tab) 1 Tablets By Mouth Every day Contact prescribing physician if questions or concerns Allergies Definity (Back Pain (more content not included)... Normal [facility] Family Medicine Office/Clini c Noteon 08-19-2024 Family Medicine Office/Clinic Note Family Medicine Office/Clinic Note Chief Complaint patient in for 3 month recheck cirrhosis and meds History of Present Illness Patient is here for follow up. Eating and drinking ok. no nausea no vomiting, patient gets swelling in legs after a long 10-12 hour day on his feet. works 70 hours a week. Patient with hypertension Takes Coreg and spironolactone and Lasix. Patient states he is only been taking his spironolactone. His blood pressure is running elevated today. Patient denies any chest pain or shortness of breath no significant edema out of the ordinary. LIVER Cirrhosis - stopped taking Lactulose all together- about month ago. NO abdominal pain, no confusion. no bloating. no constipation or diarrhea. stopped taking Lasix- has been a month- Patient on Spironolactone- he has been taking that He has not taken the Coreg recently for the past few weeks Esophageal varices Follows with Dr Evans- no bleeding. No heartburn symptoms, no black or bloody stool reported Thrombocytopenia/and anemia- Anemia has been improving platelets are stable 70, previous 67. Hgb improved Dr Lees- has been talking to Gastroenterology- regarding Leg- cellulitis Patient went to a specialist in [place] Dr Bertrand - Angiogram was done, offered lymphedema clinic. not indicated Patient called in back in Jun - Doxycycline 100 mg BID sent - he only took for 2 days . it went away. He has not been hospitalized since April- Patient had found a blood clot in leg in the past- over the summer in april. He continues to wear compression stockings every day Abnormal stress testing Went to see Dr Liz- had a reaction to the stress test medication and was in severe pain over the summer. Patient with no complaints of chest pain no shortness of breath no significant leg edema greater than usual. Review of Systems PHQ Score Initial Depression Screen Score: 0 SCORE Physical Exam Vitals & Measurements T: 36.9 ???C(Temporal Artery) HR: 70(Peripheral) RR: 18 BP: 160/90 HT: 67 in HT: 170 cm WT: 76.6 kg WT: 168.874 lb BMI: 26.51 General: alert, no acute distress, _well appearing, _pleasant middle-age male poor dentition, moist mucous membranes ENMT: oral mucosa moist, no pharyngeal erythema or exudate, Cardiovascular: regular rate and rhythm, normal peripheral perfusion, +1 mild greater on the right lower extremity only, no edema to the left edema Respiratory: no distress, Lungs CTA, respirations non labored Extremities: no deformity, no trauma, bilateral lower extremities with full all compression stockings in place. They were NOT removed for exam today to the right lower extremity, chronic vascular discoloration and edema noted greater on the right with +1 pitting edema, nontender to palpation, no open skin present Neurological: oriented x 4, LOC appropriate for age, CN II-XII intact, motor strength equal & normal bilaterally, sensation equal & normal bilaterally, speech normal Integumentary: intact, warm & dry, no rashes, no open sores, MILD jaundice appearance, dark discoloration from sun exposed areas, edema and discoloration noted to the right lower extremity Assessment/Plan 1. BMI 26.0-26.9,adult (Z68.26: Body mass index [BMI] 26.0-26.9, adult) The standard range for ages 18 and older is >=18.5 and < 25 kg/m2. Your BMI today was above this range, this falls in the overweight to obese category and there are medical benefits to weight loss. We can offer counselling, referral, and/or medical support in addressing this problem. Your BMI and weight management will be followed at subsequent visits. 2. Cirrhosis (K74.60: Unspecified cirrhosis of liver) Chronic and stable Patient to continue to avoid alcohol or hepatotoxic agents patient to continue to follow with Dr. Evans and Dr. Valdez with hematology.- he has since stopped seeing [facility]ology patient patient has stopped taking his medication-advised against this patient encouraged to to continue furosemide 20 mg once daily, lactulose 20 g 4 times a day, spironolactone 50 mg daily, and potassium chloride as needed. Encouraged daily weights He is on multivitamins-encourage d continued use Patient has self-stopped taking CellCept and other vitamins including folic acid, folate/thiamine. Patient has stopped taking lactulose as well. Encouraged close monitoring and will recheck ammonia levels at the next lab draw in September Ordered: furosemide, 20 mg = 1 tab(s), Oral, Daily, # 90 tab(s), Refills(s) 3, Pharmacy: [id number], 170, cm, 04/29/24 9:16:00 EDT, Height/Length Dosing, 70.1, kg, 04/29/24 9:16:00 EDT, Weight Dosing Ammonia Level 3. Esophageal varices (I85.00: Esophageal varices without bleeding) Continue to follow with Dr. Evans, encouraged good blood pressure control, avoiding any alcohol or esophageal irritation, continue to monitor platelets for signs of bleeding 4. HTN (hypertension) (I10: Essential (primary) hypertension) Bloo (more content not included)... Normal [facility] Comment on above: Result Comment: Elec tronically Signed By: Loreta Padilla\bryan\Date and Time Signed: 08/19/24 17:26 EST CBC w/ Auto Diffon 4 Basophils/100 WBC (Bld) 0.9 % Normal 0.0-2.0 [facility] Comment on above: Performed By: #### 2 [id number] #### [facility] [address] [place] [address] Basophils/Leukocytes Auto (Bld) [Pure # fraction] 0.0 E9/L Normal 0.0-0.2 [facility] Comment on above: Performed By: #### 2 [id number] #### [facility] [address] [place] [address] Eosinophils (Bld) [#/Vol] 0.2 E9/L Normal 0.0-0.5 [facility] Comment on above: Performed By: #### 2 [id number] #### [facility] [address] [place] [address] Eosinophils/100 WBC (Bld) 3.8 % Normal 0.0-8.0 [facility] Comment on above: Performed By: #### 2 [id number] #### [facility] [address] [place] [address] Erythrocyte distribution width (RBC) [Ratio] 15.7 % High 10.9-14.2 [facility] Comment on above: Performed By: #### 2 [id number] #### [facility] [address] [place] [address] Hematocrit (Bld) [Volume fraction] 37.6 % Low 37.7-49.0 [facility] Comment on above: Performed By: #### 2 [id number] #### [facility] [address] [place] [address] Hemoglobin (Bld) [Mass/Vol] 13.1 g/dL Low 13.5-17.5 [facility] Comment on above: Performed By: #### 2 [id number] #### [facility] [address] [place] [address] Lymphocytes (Bld) [#/Vol] 1.1 E9/L Normal 1.0-4.0 [facility] Comment on above: Performed By: #### 2 [id number] #### [facility] [address] [place] [address] Lymphocytes/100 WBC (Bld) 24.1 % Normal 14.0-50.0 [facility] Comment on above: Performed By: #### 2 540557 #### [facility] [address] [place] [address] MCH (RBC) [Entitic mass] 36.9 pg High 27.0-34.0 [facility] Comment on above: Performed By: #### 2 [id number] #### [facility] [address] [place] [address] MCHC (RBC) [Mass/Vol] 34.9 g/dL Normal 31.4-36.0 [facility] Comment on above: Performed By: #### 2 [id number] #### [facility] [address] [place] [address] MCV (RBC) [Entitic vol] 105.7 fL High 80.0-100.0 [facility] Comment on above: Performed By: #### 2 [id number] #### [facility] [address] [place] [address] Monocytes (Bld) [#/Vol] 0.5 E9/L Normal 0.2-1.0 [facility] Comment on above: Performed By: #### 2 [id number] #### [facility] [address] [place] [address] Neutrophils (Bld) [#/Vol] 2.8 E9/L Normal 2.0-7.5 [facility] Comment on above: Performed By: #### 2 [id number] #### [facility] [address] [place] [address] Neutrophils/100 WBC (Bld) 60.0 % Normal 36.0-75.0 [facility] Comment on above: Performed By: #### 2 [id number] #### [facility] [address] [place] [address] Platelet mean volume (Bld) [Entitic vol] 8.8 fL Normal 6.4-10.8 [facility] Comment on above: Performed By: #### 2 [id number] #### [facility] [address] [place] [address] Platelets (Bld) [#/Vol] 70.0 E9/L Low 150.0-500.0 [facility] Comment on above: Result Comment: Tierney pheral smear review performed. Performed By: #### 2 [id number] #### [facility] [address] [place] [address] RBC (Bld) [#/Vol] 3.6 E12/L Low 4.3-5.9 [facility] Comment on above: Performed By: #### 2 [id number] #### [facility] [address] [place] [address] WBC corrected for nucl RBC Auto (Bld) [#/Vol] 4.7 E9/L Normal 4.0-11.0 [facility] Comment on above: Performed By: #### 2 [id number] #### [facility] [address] [place] [address] CHEMISTRYOrdered By: SYSTEM SYSTEM on 08-11-2024 Albumin [Mass/Vol] 3.4 g/dL Normal 3.3 - 5.0 gm/dL R emisol Chem Albumin/Globulin [Mass ratio] 1.0 {ratio} Low 1.1 - 2.2 [facility] ALP [Catalytic activity/Vol] 193 [iU]/d High 21 - 98 Int._Unit/L [facility] ALT No additional P-5'-P [Catalytic activity/Vol] 39 [iU]/d Normal 6 - 46 Int._Unit/L [facility] Anion gap [Moles/Vol] 8 mmol/L Normal 6 - 16 mEq/L [facility] AST [Catalytic activity/Vol] 62 [iU]/d High 5 - 43 Int._Unit/L [facility] Bilirubin [Mass/Vol] 3.6 mg/dL High 0.0 - 1.1 mg/dL [facility] Calcium [Mass/Vol] 9.1 mg/dL Normal 8.9 - 11. 1 mg/dL [facility] Chloride [Moles/Vol] 103 mmol/L Normal 101 - 1 11 mmol/L [facility] CO2 [Moles/Vol] 29 mmol/L Normal 21 - 31 mmol/L Rem[facility] Chem Creatinine [Mass/Vol] 0.5 mg/dL Normal 0.5 - 1.3 mg/dL [facility] eGFR 132 mL/min/1.73 m2 Normal >=59mL/mi n/1.73 m2 [facility] Globulin (S) [Mass/Vol] 3.4 g/dL Normal 1.4 - 4.0 gm/dL [facility] Glucose [Mass/Vol] 110 mg/dL Normal 55 - 199 mg/dL Re misol Chem Potassium [Moles/Vol] 4.3 mmol/L Normal 3.5 - 5.3 mmol/L [facility] Protein [Mass/Vol] 6.8 g/dL Normal 6.0 - 7.8 gm/dL R emisol Chem Sodium [Moles/Vol] 136 mmol/L Normal 135 - 145 mmol/L [facility] Urea nitrogen [Mass/Vol] 9 mg/dL Normal 5 - 21 mg/dL [facility] Urea nitrogen/Creatinine [Mass ratio] 18 mg/mg Normal 10 - 20 [facility] HEMATOLOGYOrdered By: SYSTEM SYSTEM on 08-11-2024 Basophils/100 WBC (Bld) 0.9 % Normal 0.0 - 2.0 % [facility] Basophils/Leukocytes Auto (Bld) [Pure # fraction] 0.0 E9/L Normal 0.0 - 0.2 E9/L [facility] Eosinophils (Bld) [#/Vol] 0.2 E9/L Normal 0.0 - 0.5 E9/L [facility] Eosinophils/100 WBC (Bld) 3.8 % Normal 0.0 - 8.0 % [facility] Erythrocyte distribution width (RBC) [Ratio] 15.7 % High 10.9 - 14.2 % [facility] Hematocrit (Bld) [Volume fraction] 37.6 % Low 37.7 - 49.0 % [facility] Hemoglobin (Bld) [Mass/Vol] 13.1 g/dL Low 13.5 - 17.5 gm/dL [facility] Lymphocytes (Bld) [#/Vol] 1.1 E9/L Normal 1.0 - 4.0 E9/L [facility] Lymphocytes/100 WBC (Bld) 24.1 % Normal 14.0 - 50.0 % [facility] MCH (RBC) [Entitic mass] 36.9 pg High 27.0 - 34.0 pg [facility] MCHC (RBC) [Mass/Vol] 34.9 g/dL Normal 31.4 - 36.0 gm/dL [facility] MCV (RBC) [Entitic vol] 105.7 fL High 80.0 - 100.0 fL [facility] Monocytes (Bld) [#/Vol] 0.5 E9/L Normal 0.2 - 1.0 E9/L [facility] Monocytes/100 WBC (Bld) 11.2 % Normal 4.0 - 14.0 % [facility] Neutrophils (Bld) [#/Vol] 2.8 E9/L Normal 2.0 - 7.5 E9/L [facility] Neutrophils/100 WBC (Bld) 60.0 % Normal 36.0 - 75.0 % [facility] Platelet mean volume (Bld) [Entitic vol] 8.8 fL Normal 6.4 - 10.8 fL [facility] Platelets (Bld) [#/Vol] 70.0 E9/L Low 150.0 - 500.0 E9/L [facility] Comment on above: Result Comment: Tierney pheral smear review performed. RBC (Bld) [#/Vol] 3.6 E12/L Low 4.3 - 5.9 E12/L Re misol Heme WBC corrected for nucl RBC Auto (Bld) [#/Vol] 4.7 E9/L Normal 4.0 - 11.0 E9/L [facility] Erythropoiet Lvlon 4 Erythropoietin (EPO) Qn 26.3 mIU/mL High 2.6-18.5 [facility] Comment on above: Result Comment: [employer] DxI 800 Immunoassay System Values obtained with different assay methods or kits cannot be used interchangeably. Results cannot be interpreted as absolute evidence of the presence or absence of malignant disease. Performed at: [facility] [address] [place], [place] [id number] PhD Poncho Prater Performed By: #### 1 [id number] #### [facility] [address] [place] [address] Haptoglobinon 07-11-2024 Haptoglobin [Mass/Vol] mg/dL Low 17-317 [facility] Comment on above: Result Comment: Perf ormed at: [facility] [address] [place], [place] [id number] PhD [employer]ater Performed By: #### 2 [id number] #### [facility] [address] [place] [id number] ABSCon 07-09-2024 ABSC Gel Interp Negative Normal [facility] Comment on above: Performed By: #### 1 [id number] #### [facility] [address] [place] [address] BLOOD BANKOrdered By: Maria Isabel bain on 07-09-2024 ABSC Gel Interp Negative (07/09/24 8:29 AM) Normal FT BB Subsection AYLIN IgG/C3d Tube Negative (07/09/24 8:29 AM) Normal FT BB Subsection CBC w/ Auto Diffon 4 Basophils/100 WBC (Bld) 0.8 % Normal 0.0-2.0 [facility] Comment on above: Performed By: #### 2 [id number] #### [facility] [address] [place] [address] Basophils/Leukocytes Auto (Bld) [Pure # fraction] 0.0 E9/L Normal 0.0-0.2 [facility] Comment on above: Performed By: #### 2 [id number] #### [facility] [address] [place] [address] Eosinophils (Bld) [#/Vol] 0.2 E9/L Normal 0.0-0.5 [facility] Comment on above: Performed By: #### 2 [id number] #### [facility] [address] [place] [address] Eosinophils/100 WBC (Bld) 5.8 % Normal 0.0-8.0 [facility] Comment on above: Performed By: #### 2 [id number] #### [facility] [address] [place] [address] Erythrocyte distribution width (RBC) [Ratio] 15.1 % High 10.9-14.2 [facility] Comment on above: Performed By: #### 2 [id number] #### [facility] [address] [place] [address] Hematocrit (Bld) [Volume fraction] 36.8 % Low 37.7-49.0 [facility] Comment on above: Performed By: #### 2 [id number] #### [facility] [address] [place] [address] Hemoglobin (Bld) [Mass/Vol] 12.7 g/dL Low 13.5-17.5 [facility] Comment on above: Performed By: #### 2 [id number] #### [facility] [address] [place] [address] Lymphocytes (Bld) [#/Vol] 0.9 E9/L Low 1.0-4.0 [facility] Comment on above: Performed By: #### 2 [id number] #### [facility] [address] [place] [address] Lymphocytes/100 WBC (Bld) 23.1 % Normal 14.0-50.0 [facility] Comment on above: Performed By: #### 2 [id number] #### [facility] [address] [place] [address] MCH (RBC) [Entitic mass] 36.7 pg High 27.0-34.0 [facility] Comment on above: Performed By: #### 2 [id number] #### [facility] [address] [place] [address] MCHC (RBC) [Mass/Vol] 34.5 g/dL Normal 31.4-36.0 [facility] Comment on above: Performed By: #### 2 [id number] #### [facility] [address] [place] [address] MCV (RBC) [Entitic vol] 106.4 fL High 80.0-100.0 [facility] Comment on above: Performed By: #### 2 [id number] #### [facility] [address] [place] [address] Monocytes (Bld) [#/Vol] 0.5 E9/L Normal 0.2-1.0 [facility] Comment on above: Performed By: #### 2 [id number] #### [facility] [address] [place] [address] Neutrophils (Bld) [#/Vol] 2.1 E9/L Normal 2.0-7.5 [facility] Comment on above: Performed By: #### 2 [id number] #### [facility] [address] [place] [address] Neutrophils/100 WBC (Bld) 57.0 % Normal 36.0-75.0 [facility] Comment on above: Performed By: #### 2 [id number] #### [facility] [address] [place] [address] Platelet mean volume (Bld) [Entitic vol] 9.5 fL Normal 6.4-10.8 [facility] Comment on above: Performed By: #### 2 [id number] #### [facility] [address] [place] [address] Platelets (Bld) [#/Vol] 67.0 E9/L Low 150.0-500.0 [facility] Comment on above: Result Comment: Tierney pheral smear review performed. Performed By: #### 2 [id number] #### [facility] [address] [place] [address] RBC (Bld) [#/Vol] 3.5 E12/L Low 4.3-5.9 [facility] Comment on above: Performed By: #### 2 [id number] #### [facility] [address] [place] [address] WBC corrected for nucl RBC Auto (Bld) [#/Vol] 3.7 E9/L Low 4.0-11.0 [facility] Comment on above: Performed By: #### 2 [id number] #### [facility] [address] [place] [address] CHEMISTRYOrdered By: SYSTEM SYSTEM on 07-09-2024 Albumin [Mass/Vol] 3.1 g/dL Low 3.3 - 5.0 gm/dL R emisol Chem Albumin/Globulin [Mass ratio] 0.9 {ratio} Low 1.1 - 2.2 Rem[facility] Chem ALP [Catalytic activity/Vol] 192 [iU]/d High 21 - 98 Int._Unit/L Remisol Chem ALT No additional P-5'-P [Catalytic activity/Vol] 33 [iU]/d Normal 6 - 46 Int._Unit/L [facility] Chem Anion gap [Moles/Vol] 7 mmol/L Normal 6 - 16 mEq/L [facility] Chem AST [Catalytic activity/Vol] 56 [iU]/d High 5 - 43 Int._Unit/L [facility] Chem Bilirubin [Mass/Vol] 3.1 mg/dL High 0.0 - 1.1 mg/dL [facility] Chem Calcium [Mass/Vol] 8.2 mg/dL Low 8.9 - 11. 1 mg/dL [facility] Chem Chloride [Moles/Vol] 105 mmol/L Normal 101 - 1 11 mmol/L [facility] Chem CO2 [Moles/Vol] 26 mmol/L Normal 21 - 31 mmol/L Remis ol Chem Creatinine [Mass/Vol] 0.5 mg/dL Normal 0.5 - 1.3 mg/dL [facility] Chem eGFR 132 mL/min/1.73 m2 Normal >=59mL/mi n/1.73 m2 [facility] Chem Ferritin [Mass/Vol] 272 ng/mL Normal 24 - 336 ng/mL R emisol Chem Globulin (S) [Mass/Vol] 3.5 g/dL Normal 1.4 - 4.0 gm/dL [facility] Chem Glucose [Mass/Vol] 171 mg/dL Normal 55 - 199 mg/dL Re misol Chem Iron [Mass/Vol] 212 ug/dL High 35 - 153 mcg/dL Gerardo paulina Chem Iron binding capacity [Mass/Vol] 246 ug/dL Low 250 - 400 mcg/dL Remisol Chem Iron saturation [Mass fraction] 86 % High 20 - 50 % Remisol Chem LDH 226 [iU]/d High 93 - 218 Int._Unit/L [facility] Chem Potassium [Moles/Vol] 4.0 mmol/L Normal 3.5 - 5.3 mmol/L Remisol Chem Protein [Mass/Vol] 6.6 g/dL Normal 6.0 - 7.8 gm/dL R emisol Chem Sodium [Moles/Vol] 134 mmol/L Low 135 - 145 mmol/L Remisol Chem Transferrin [Mass/Vol] 176 mg/dL Low 200 - 370 mg/dL Rem[facility] Chem Urea nitrogen [Mass/Vol] 10 mg/dL Normal 5 - 21 mg/dL Rem[facility] Chem Urea nitrogen/Creatinine [Mass ratio] 20 mg/mg Normal 10 - 20 Remisol Chem CMPon 07-09-2024 Albumin [Mass/Vol] 3.1 g/dL Low 3.3-5.0 [facility] Comment on above: Performed By: #### 2 [id number] #### [facility] [address] [place] [address] Albumin/Globulin (S) [Mass conc ratio] 0.9 Low 1.1-2.2 [facility] Comment on above: Performed By: #### 2 [id number] #### [facility] [address] [place] [address] ALP [Catalytic activity/Vol] 192 Int._Unit/L High 21-98 [facility] Comment on above: Performed By: #### 2 [id number] #### [facility] [address] [place] [address] ALT No additional P-5'-P [Catalytic activity/Vol] 33 Int._Unit/L Normal 6-46 [facility] Comment on above: Performed By: #### 2 [id number] #### [facility] [address] [place] [address] Anion gap [Moles/Vol] 7 mmol/L Normal 6-16 [facility] Comment on above: Performed By: #### 2 [id number] #### [facility] [address] [place] [address] AST [Catalytic activity/Vol] 56 Int._Unit/L High 5-43 [facility] Comment on above: Performed By: #### 2 900645 #### [facility] [address] [place] [address] Bilirubin [Mass/Vol] 3.1 mg/dL High 0.0-1.1 [facility] Comment on above: Performed By: #### 2 [id number] #### [facility] [address] [place] [address] Calcium [Mass/Vol] 8.2 mg/dL Low 8.9-11.1 [facility] Comment on above: Performed By: #### 2 [id number] #### [facility] [address] [place] [address] Chloride [Moles/Vol] 105 mmol/L Normal 101-111 [facility] Comment on above: Performed By: #### 2 019174 #### [facility] [address] [place] [address] CO2 [Moles/Vol] 26 mmol/L Normal 21-31 [facility] Comment on above: Performed By: #### 2 784942 #### [facility] [address] [place] [address] Creatinine [Mass/Vol] 0.5 mg/dL Normal 0.5-1.3 [facility] Comment on above: Performed By: #### 2 924596 #### [facility] [address] [place] [address] Globulin (S) [Mass/Vol] 3.5 g/dL Normal 1.4-4.0 [facility] Comment on above: Performed By: #### 2 216107 #### [facility] [address] [place] [address] Glucose [Mass/Vol] 171 mg/dL Normal 55-199 [facility] Comment on above: Performed By: #### 2 959600 #### [facility] [address] [place] [address] Potassium [Moles/Vol] 4.0 mmol/L Normal 3.5-5.3 [facility] Comment on above: Performed By: #### 2 547049 #### [facility] [address] [place] [address] Protein [Mass/Vol] 6.6 g/dL Normal 6.0-7.8 [facility] Comment on above: Performed By: #### 2 734385 #### [facility] [address] [place] [address] Sodium [Moles/Vol] 134 mmol/L Low 135-145 [facility] Comment on above: Performed By: #### 2 [id number] #### [facility] [address] [place] [address] Urea nitrogen [Mass/Vol] 10 mg/dL Normal 5-21 [facility] Comment on above: Performed By: #### 2 030079 #### [facility] [address] [place] [address] Urea nitrogen/Creatinine [Mass ratio] 20 No Units Normal 10-20 [facility] Comment on above: Performed By: #### 2 [id number] #### [facility] [address] [place] [address] AYLIN IgG/C3d.on 07-09-2024 AYLIN IgG/C3d Tube Negative Normal [facility] Comment on above: Performed By: #### 8 [id number] #### [facility] [address] [place] [address] Ferritinon 07-09-2024 Ferritin [Mass/Vol] 272 ng/mL Normal 24-336 [facility] Comment on above: Performed By: #### 2 [id number] #### [facility] [address] [place] [address] HEMATOLOGYOrdered By: SYSTEM SYSTEM on 07-09-2024 Basophils/100 WBC (Bld) 0.8 % Normal 0.0 - 2.0 % [facility] Heme Basophils/Leukocytes Auto (Bld) [Pure # fraction] 0.0 E9/L Normal 0.0 - 0.2 E9/L [facility] Eosinophils (Bld) [#/Vol] 0.2 E9/L Normal 0.0 - 0.5 E9/L [facility] Eosinophils/100 WBC (Bld) 5.8 % Normal 0.0 - 8.0 % [facility] Erythrocyte distribution width (RBC) [Ratio] 15.1 % High 10.9 - 14.2 % [facility] Hematocrit (Bld) [Volume fraction] 36.8 % Low 37.7 - 49.0 % [facility] Hemoglobin (Bld) [Mass/Vol] 12.7 g/dL Low 13.5 - 17.5 gm/dL [facility] Lymphocytes (Bld) [#/Vol] 0.9 E9/L Low 1.0 - 4.0 E9/L [facility] Lymphocytes/100 WBC (Bld) 23.1 % Normal 14.0 - 50.0 % [facility] MCH (RBC) [Entitic mass] 36.7 pg High 27.0 - 34.0 pg Rem[facility] Heme MCHC (RBC) [Mass/Vol] 34.5 g/dL Normal 31.4 - 36.0 gm/dL [facility] MCV (RBC) [Entitic vol] 106.4 fL High 80.0 - 100.0 fL [facility] Monocytes (Bld) [#/Vol] 0.5 E9/L Normal 0.2 - 1.0 E9/L [facility] Monocytes/100 WBC (Bld) 13.3 % Normal 4.0 - 14.0 % [facility] Neutrophils (Bld) [#/Vol] 2.1 E9/L Normal 2.0 - 7.5 E9/L [facility] Neutrophils/100 WBC (Bld) 57.0 % Normal 36.0 - 75.0 % [facility] Platelet mean volume (Bld) [Entitic vol] 9.5 fL Normal 6.4 - 10.8 fL [facility] Platelets (Bld) [#/Vol] 67.0 E9/L Low 150.0 - 500.0 E9/L [facility] Comment on above: Result Comment: Tierney pheral smear review performed. RBC (Bld) [#/Vol] 3.5 E12/L Low 4.3 - 5.9 E12/L Re misol Heme Reticulocytes/100 RBC (Bld) 1.9 % Normal 0.5 - 2.2 % [facility] WBC corrected for nucl RBC Auto (Bld) [#/Vol] 3.7 E9/L Low 4.0 - 11.0 E9/L [facility] Ironon 07-09-2024 Iron [Mass/Vol] 212 microgram/dL High 35-153 [facility] Comment on above: Performed By: #### 2 [id number] #### [facility] [address] [place] [address] Iron Saturationon 07-09-2024 Iron binding capacity [Mass/Vol] 246 microgram/dL Low 250-400 [facility] Comment on above: Performed By: #### 2 [id number] #### [facility] [address] [place] [address] Iron saturation [Mass fraction] 86 % High 20-50 [facility] Comment on above: Performed By: #### 2 [id number] #### [facility] [address] [place] [address] LDHon 07-09-2024 LDH 226 Int._Unit/L High 93-218 [facility] Comment on above: Performed By: #### 2 [id number] #### [facility] [address] [place] [address] Retic Counton 07-09-2024 Reticulocytes/100 RBC (Bld) 1.9 % Normal 0.5-2.2 [facility] Comment on above: Performed By: #### 2 [id number] #### [facility] [address] [place] [address] Transferrinon 07-09-2024 Transferrin [Mass/Vol] 176 mg/dL Low 200-370 [facility] Comment on above: Performed By: #### 2 [id number] #### [facility] [address] [place] [address] eGFRon 07-09-2024 eGFR 132 mL/min/1.73 m2 Normal >=59 [facility] Comment on above: Performed By: #### 1 [id number] #### [facility] [address] [place] [address] Ambulatory Visit Summaryon 1 Ambulatory Visit Summary Ambulatory Visit Summary WILL RALPH :1985 Visit Date:06/09/2024 Ambulatory Visit Instructions Your Diagnosis Liver cirrhosis, alcoholic Alcohol use disorder in remission Elevated liver enzymes Hemolytic anemia Your Care Team Attending Physician - Carrol MULTANI, Mario Xiong Primary Care Physician - John ALBERTS, Loreta Zuniga This Is Your Medications List carvedilol (Coreg 6.25 mg Tab) Contact prescribing physician if questions or concerns Misc Prescription (BP cuff device and appropriate size please) Misc Prescription (Misc DME Prescription) Misc Prescription (Misc DME Prescription) Misc Prescription (Misc DME Prescription) bifidobacterium-lactoba cillus (bifidobacterium-lactob acillus oral tablet) cholecalciferol (cholecalciferol 50,000 intl units oral capsule) doxycycline (doxycycline monohydrate 100 mg oral capsule) folic acid (folic acid 1 mg Tab) furosemide (furosemide 20 mg Tab) lactulose (lactulose 10 g/15 mL Oral Syrup) multivitamin (Tab-A-Scott oral tablet) naloxone (Narcan 4 mg/0.1 mL nasal spray) ondansetron (Zofran ODT 4 mg Tab) oxycodone (oxyCODONE 5 mg Tab) potassium chloride (Potassium Chloride (Bwm-Xfyk-Fmc M20) 20 mEq oral tablet, extended release) spironolactone (spironolactone 50 mg Tab) Procedures Performed EGD - esophagogastroduodenosc opy (11/11/2023), Esophagogastroduodenosc opy (09/30/2023), I and D, Jaw. Discharge Vitals Heart Rate (Peripheral) 72 Blood Pressure 127/77 Height 170 cm Height 67 in Weight 74.2 kg Weight 163.24 lb BMI 25.67 What to do next Scheduled Follow-Up Appointments 2023 2:40 PM EST With: Kavon Lu DO: [facility] Thursday 3:00 PM EST With: Loreta Padilla Where: [facility] [address] [place] [address]- Thursday 9:15 AM EDT With: Carrol MULTANI, Maroi Xiong Where: [facility] [address] [place] [address]- Medications What How Much When Why Instructions New carvedilol (Coreg 6.25 mg Tab) 1 Tablets By Mouth 2 times a day Refills: 3 Pickup at [facility] Unchanged bifidobacterium-lactoba cillus (bifidobacterium-lactob acillus oral tablet) 1 Tablets By Mouth Every day Contact prescribing physician if questions or concerns Unchanged cholecalciferol (cholecalciferol 50,000 intl units oral capsule) 1 Capsules By Mouth Every 7 days Vitamin D deficiency Contact prescribing physician if questions or concerns Unchanged doxycycline (doxycycline monohydrate 100 mg oral capsule) TAKE 1 CAPSULE BY MOUTH TWICE DAILY FOR 14 DAYS Contact prescribing physician if questions or concerns Unchanged folic acid (folic acid 1 mg Tab) 1 Tablets By Mouth Every day Anemia Contact prescribing physician if questions or concerns Unchanged furosemide (furosemide 20 mg Tab) 1 Tablets By Mouth Every day Cirrhosis Dependent edema Contact prescribing physician if questions or concerns Unchanged lactulose (lactulose 10 g/ 15 mL Oral Syrup) See instructions TAKE 30 ML BY MOUTH FOUR TIMES DAILY Contact prescribing physician if questions or concerns Unchanged Misc Prescription (BP cuff device and appropriate size please) See instructions HTN (hypertension) BP Device/ machine and cuff (size appropriate) Contact prescribing physician if questions or concerns Unchanged Misc Prescription (Misc DME Prescription) See instructions Reading SAP Dressing 4 x 4 dressing Contact prescribing physician if questions or concerns Unchanged Misc Prescription (Misc DME Prescription) See instructions LiquidIV hydration Contact prescribing physician if questions or concerns Unchanged Misc Prescription (Misc DME Prescription) See instructions Muscle & joint balm CBD 880mg Contact prescribing physician if questions or concerns Unchanged multivitamin (Tab-A-Scott oral tablet) 1 Tablets By Mouth Every day Contact prescribing physician if questions or concerns Unchanged naloxone (Narcan 4 mg/ 0.1 mL nasal spray) 4 Milligram Nasal Inhalation As Directed Pain for suspected overdose symptoms Contact prescribing physician if questions or concerns Unchanged ondansetron (Zofran ODT 4 mg Tab) 1 Tablets By Mouth 3 times a day as needed for Nausea Nausea Contact prescribing physician if questions or concerns Unchanged oxycodone (oxyCODONE 5 mg Tab) 0.5 tab By Mouth Every 6 hours as needed for for pain Peripheral vascular disease Leg pain for leg pain- severe pain only Contact prescribing physician if questions or concerns Unchanged potassium chloride (Potassium Chloride (Gbt-Yjsi-Rtt M20) 20 mEq oral tablet, extended release) 1 Tablets By Mouth 2 times a day Contact prescribing physician if questions or concerns Unchanged spironolactone (spironolactone 50 mg Tab) 1 Tablets By Mouth Every day Contact prescribing physician if questions o (more content not included)... Normal [facility] Gastroenterology Office/Clin ic Noteon 06-09-2024 Gastroenterology Office/Clinic Note Gastroenterology Office/Clinic Note Chief Complaint Cirrhosis follow up HPI Staff Patient is a(n) year old male who presents today for a(n) 1 month follow-up. US/labs ordered for 11/2024. Recieved liver bx report from [facility], placed in chart. Need to review bx, US and labs to determine transplant status. Denies blood thinners. Denies GLP-1 agonists. Last visit 05/12/24 w/Dr. Evans: Assessment/Plan 1. Liver cirrhosis, alcoholic (K70.30: Alcoholic cirrhosis of liver without ascites) Sober for more than 2.5 years Liver biopsy was done at [facility], gradient was 14 mmHg Liver biopsy report is reported steatosis and cirrhosis advanced, suspected alcohol induced based on history I will complete chronic liver disease panel and confirm hepatitis A&B immunity His bilirubin is gradually worsening could be related to hemolytic anemia, follows with oncology, but I will obtain also INR and get his ultrasound to assess his MELD score and see if he needs referral to transplant center - Ascites: low salt diet, on low-dose Lasix Aldactone - SBP Prophylaxis: n/a - Varices: EGD banded in September 2023, repeat in November showed small varices, repeat November 2024 - Encephalopathy: none - HCC screening: Due for ultrasound, get AFP - Transplant Status: MELDNa obtain labs - Nutrition: encourage high protein intake and late night snack as well. -Will discuss Coreg and statin next visit - Coffee is encouraged, helps decrease risk of HCC - Repeat cirrhosis panel every 6 months (CBC, CMP, INR, AFP) Health maintenance: Hep A and Hep B status: Uptodate vaccinations per primary care as well 2. Alcohol use disorder in remission (F10.91: Alcohol use, unspecified, in remission) 3. Elevated liver enzymes (R74.8: Abnormal levels of other serum enzymes) 4. Hemolytic anemia (D58.9: Hereditary hemolytic anemia, unspecified) Follows with hematology US liver 05/24/24: IMPRESSION: ADVANCED HEPATIC CIRRHOSIS. CHOLELITHIASIS WITHOUT EVIDENCE OF ACUTE CHOLECYSTITIS. Laboratory Results CBC CMP PT PTT Basophil Absolute: 0 E9/L (05/24/24) A/G Ratio: 0.9 Low (05/24/24) INR: 1.52 (05/24/24) PTT: 42.5 second(s) High (05/24/24) Basophil Auto: 0.8 % (05/24/24) AGAP: 10 mEq/L (05/24/24) PT: 17.1 second(s) High (05/24/24) Eos Absolute: 0.2 E9/L (05/24/24) Albumin Lvl: 3.5 gm/dL (05/24/24) Eos Auto: 3.4 % (05/24/24) Alk Phos: 219 Int._Unit/L High (05/24/24) Hct: 35.2 % Low (05/24/24) ALT: 57 Int._Unit/L High (05/24/24) HGB: 12.1 gm/dL Low (05/24/24) AST: 96 Int._Unit/L High (05/24/24) Lymph Absolute: 1 E9/L (05/24/24) Bili Total: 5.3 mg/dL High (05/24/24) Lymph Auto: 16.1 % (05/24/24) BUN: 8 mg/dL (05/24/24) MCH: 36 pg High (05/24/24) BUN/Creat Ratio: 16 (05/24/24) MCHC: 34.3 gm/dL (05/24/24) Calcium Lvl: 9 mg/dL (05/24/24) MCV: 104.9 fL High (05/24/24) Chloride: 102 mmol/L (05/24/24) [place] Absolute: 0.6 E9/L (05/24/24) CO2: 25 mmol/L (05/24/24) [place] Auto: 9.6 % (05/24/24) Creatinine: 0.5 mg/dL (05/24/24) MPV: 9 fL (05/24/24) Globulin: 3.9 gm/dL (05/24/24) Neutro Absolute: 4.2 E9/L (05/24/24) Glucose Lvl: 100 mg/dL (05/24/24) Neutro Auto: 70.1 % (05/24/24) Potassium Lvl: 4 mmol/L (05/24/24) Platelet: 81 E9/L Low (05/24/24) Sodium Lvl: 133 mmol/L Low (05/24/24) RBC: 3.4 E12/L Low (05/24/24) Total Protein: 7.4 gm/dL (05/24/24) RDW: 16.9 % High (05/24/24) WBC: 6 E9/L (05/24/24) Liver Studies A-1-AT: 153 (05/24/24) A-1-AT: 159 (05/24/24) AMA Ab Scr: <20.0 (05/24/24) AMA Ab Scr: <20.0 (05/24/24) GEOVANNA Direct: Negative (05/24/24) GEOVANNA Direct: Negative (05/24/24) Ceruloplasmin: 18.6 (05/24/24) Ceruloplasmin: 19.9 (05/24/24) Ferritin Lvl: 401 ng/mL High (05/24/24) Ferritin Lvl: 527 ng/mL High (02/20/24) Ferritin Lvl: 385 ng/mL High (12/21/23) HCV Ab: Non Reactive (05/24/24) HCV Ab: Non Reactive (12/21/23) Hep A Ab: Negative (05/24/24) Hep A IgM: Negative (05/24/24) Hep A IgM: Negative (12/21/23) Hep B Core IgM: Negative (05/24/24) Hep B Core IgM: Negative (12/21/23) Hep Bs Ag: Negative (05/24/24) Hep Bs Ag: Negative (12/21/23) Iron: 268 mcg/dL High (05/24/24) Iron: 227 mcg/dL High (02/20/24) Iron: 269 mcg/dL High (12/21/23) SMA Scr: 18 (05/24/24) TIBC: 265 mcg/dL (05/24/24) TIBC: 230 mcg/dL Low (02/20/24) TIBC: 288 mcg/dL (12/21/23) Transferrin: 189 mg/dL Low (05/24/24) Transferrin: 164 mg/dL Low (02/20/24) Transferrin: 206 mg/dL (12/21/23) History of Present Illness Doing well, asymptomatic Review of Systems PHQ Score Initial Depression Screen Score: 0 SCORE Physical Exam Vitals & Measurements HR: 72(Peripheral) BP: 127/77 HT: 67 in HT: 170 cm WT: 74.2 kg WT: 163.24 lb BMI: 25.67 Assessment/Plan 1. Liver cirrhosis, alcoholic (K70.30: Alcoholic cirrhosis of liver without ascites) Sober for more than 2.5 years Liver biopsy was done at [facility], gradient was 14 mmHg Liver biopsy report is reported steatosis and cirrhosis a (more content not included)... Normal [facility] Comment on above: Result Comment: Elec tronically Signed By: Carrol MULTANI, Mario Xiong\.br\Date and Time Signed: 06/09/24 14:42 EDT US Liveron 05-26-2024 US Liver Exam Date/Time: 05/24/2024 11:03 EDT Reason for Exam: K74.60;Elevated LFTs Report IMPRESSION: ADVANCED HEPATIC CIRRHOSIS. CHOLELITHIASIS WITHOUT EVIDENCE OF ACUTE CHOLECYSTITIS. EXAM: US Liver DATE: 05/24/2024 10:41 AM CLINICAL HISTORY: Elevated LFTs, K74.60. COMPARISON: RUQ ultrasound 12/31/[address] abdomen and pelvis 12/11/2023. TECHNIQUE: Transabdominal ultrasound of the right upper quadrant was performed. FINDINGS: The study is moderately limited by the patient's body habitus. The gallbladder is filled with small echogenic foci, consistent with extensive cholelithiasis. Coarsening of the hepatic echotexture of a small-sized liver is consistent with cirrhosis, similar to the prior studies. There is no discrete hepatic mass, significant gallbladder distention, wall thickening, pericholecystic fluid, biliary dilatation, or ascites identified. The common duct measures approximately 2 to 3 mm at the julia hepatis. The poorly visualized pancreas, right kidney, and great vessels are unremarkable. Ordering Provider: Mario Evans FINAL REPORT Dictated: 05/26/2024 2:52 pm Melvin Varghese MD Signed (Electronic Signature): 05/26/2024 2:52 pm Signed by: Melvin Varghese MD Transcribed by: 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 Razo [facility] .Interpretation:on HCV Ab IA Ql Comment Invalid Interpretation Code [facility] Comment on above: Result Comment: Not infected with HCV unless early or acute infection is suspected (which may be delayed in an immunocompromised individual), or other evidence exists to indicate HCV infection. Performed at: [facility] [address] [place], [place] [id number] PhD Poncho Prater Performed By: #### 2 [id number] #### [facility] [address] [place] [address] AFPon 05-25-2024 AFP.tumor marker [Mass/Vol] 4.1 ng/mL Invalid Interpretation Code 0.0-6.9 [facility] Comment on above: Result Comment: [employer] [facility] Electrochemiluminescence Immunoassay (ECLIA) Values obtained with different assay methods or kits cannot be used interchangeably. Results cannot be interpreted as absolute evidence of the presence or absence of malignant disease. This test is not interpretable in females. Performed at: [facility] [id number] PhD Poncho Prater Performed By: #### 2 [id number] #### [facility] [address] [place] [address] AMA Ab Scron 05-25-2024 Mitochondria M2 IgG Qn (S) <20.0 Invalid Interpretation Code 0.0-20.0 [facility] Comment on above: Result Comment: Nega tive 0.0 - 20.0 Equivocal 20.1 - 24.9 Positive >24.9 Mitochondrial (M2) Antibodies are found in 90-96% of patients with primary biliary cirrhosis. Performed at: [address] [id number] PhD Poncho Prater Performed By: #### 1 [id number] #### [facility] [address] [place] [address] GEOVANNA w/Reflex if POSon 2023 Nuclear Ab Ql (S) Negative Invalid Interpretation Code Negative [facility] Comment on above: Result Comment: Perf ormed at: [address] [id number] PhD Poncho Prater Performed By: #### 1 [id number] #### [facility] [address] [place] [address] Nuclear Ab Ql (S) Negative Invalid Interpretation Code Negative [facility] Comment on above: Result Comment: Perf ormed at: [address] [id number] PhD Poncho Prater Performed By: #### 1 [id number] #### [facility] [address] [place] [address] Acute Hepatitis A B C Panelo n 05-25-2024 HAV IgM IA Ql Negative Invalid Interpretation Code Negative [facility] Comment on above: Result Comment: A ne gative anti-HAV IgM result suggests no recent or current HAV infection. Performed By: #### 3 [id number] #### [facility] [address] [place] [address] HBV core IgM IA Ql Negative Invalid Interpretation Code Negative [facility] Comment on above: Performed By: #### 3 [id number] #### [facility] [address] [place] [address] HBV surface Ag IA Ql Negative Invalid Interpretation Code Negative [facility] Comment on above: Performed By: #### 3 [id number] #### [facility] [address] [place] [address] HCV IgG IA Ql Non-Reactive Invalid Interpretation Code Non Reactive [facility] Comment on above: Result Comment: Perf ormed at: [address] [id number] PhD Poncho Prater Performed By: #### 3 [id number] #### [facility] [address] [place] [address] Alpha 1 Antitrpon 05-25-2024 Alpha 1 antitrypsin [Mass/Vol] 153 mg/dL Invalid Interpretation Code 95-164 [facility] Comment on above: Result Comment: Perf ormed at: [address] [id number] PhD Poncho Prater Performed By: #### 1 [id number] #### [facility] [address] [place] [address] Alpha 1 antitrypsin [Mass/Vol] 159 mg/dL Invalid Interpretation Code 95-164 [facility] Comment on above: Result Comment: Perf ormed at: [address] [id number] PhD Poncho Prater Performed By: #### 1 [id number] #### [facility] [address] [place] [address] Ceruloplasminon 05-25-2024 Ceruloplasmin [Mass/Vol] 18.6 mg/dL Invalid Interpretation Code 16.0-31.0 [facility] Comment on above: Result Comment: Perf ormed at: [address] [id number] PhD Poncho Prater Performed By: #### 1 [id number] #### [facility] [address] [place] [address] Ceruloplasmin [Mass/Vol] 19.9 mg/dL Invalid Interpretation Code 16.0-31.0 [facility] Comment on above: Result Comment: Perf ormed at: [address] [id number] PhD Ottogacharmaine Prater Performed By: #### 1 [id number] #### [facility] [address] [place] [address] Hep Bs Abon 05-25-2024 HBV surface Ab Ql (S) Non-Reactive Invalid Interpretation Code [facility] Comment on above: Result Comment: Non Reactive: Not immune to HBV infection. Equivocal: Unable to determine if anti-HBs is present at levels consistent with immunity. Reactive: Anti-HBs concentration detected at greater than 10 mIU/mL. Individual is considered to be immune to infection with HBV. Performed at: [address] [id number] [facility] Famgacharmaine Prater Performed By: #### 2 [id number] #### [facility] [address] [place] [address] Hepatitis A Virus (HAV) Anti body, Totalon 05-25-2024 HAV Ab IA Ql (S) Negative Invalid Interpretation Code Negative [facility] Comment on above: Result Comment: Comm ent: The HAV total antibody assay detects both IgG and IgM but does not differentiate between them. A negative result suggests susceptibility to infection. A positive result could be due to vaccination, previously resolved infection or active infection. Testing for HAV IgM should be performed if active HAV infection is suspected. [facility] offers profiles that will automatically reflex positive HAV total antibody results to IgM (e.g., panel #[id number] HAV Antibody w/ Rfx). Performed at: [address] [id number] PhD Ottogacharmaine Prater Performed By: #### 1 [id number] #### [facility] [address] [place] [address] IgG, Quant.on 05-25-2024 IgG [Mass/Vol] 1784 mg/dL High 603-1613 [facility] Comment on above: Result Comment: Perf ormed at: [address] [id number] PhD Poncho Prater Performed By: #### 1 [id number] #### [facility] [address] [place] [address] Smooth Muscle Abon 4 Actin smooth muscle IgG Qn (S) 18 unit(s) Invalid Interpretation Code 0-19 [facility] Comment on above: Result Comment: Nega tive 0 - 19 Weak positive 20 - 30 Moderate to strong positive >30 Actin Antibodies are found in 52-85% of patients with autoimmune hepatitis or chronic active hepatitis and in 22% of patients with primary biliary cirrhosis. Performed at: [address] [id number] PhD Poncho Prater Performed By: #### 1 [id number] #### [facility] [address] [place] [address] Bili Directon 05-24-2024 Bilirubin.direct [Mass/Vol] 1.1 mg/dL High 0.0-0.4 [facility] Comment on above: Performed By: #### 2 [id number] #### [facility] [address] [place] [address] CBC w/ Auto Diffon 4 Basophils/100 WBC (Bld) 0.8 % Normal 0.0-2.0 [facility] Comment on above: Performed By: #### 2 [id number] #### [facility] [address] [place] [address] Basophils/Leukocytes Auto (Bld) [Pure # fraction] 0.0 E9/L Normal 0.0-0.2 [facility] Comment on above: Performed By: #### 2 [id number] #### [facility] [address] [place] [address] Eosinophils (Bld) [#/Vol] 0.2 E9/L Normal 0.0-0.5 [facility] Comment on above: Performed By: #### 2 [id number] #### [facility] [address] [place] [address] Eosinophils/100 WBC (Bld) 3.4 % Normal 0.0-8.0 [facility] Comment on above: Performed By: #### 2 [id number] #### [facility] [address] [place] [address] Erythrocyte distribution width (RBC) [Ratio] 16.9 % High 10.9-14.2 [facility] Comment on above: Performed By: #### 2 [id number] #### [facility] [address] [place] [address] Hematocrit (Bld) [Volume fraction] 35.2 % Low 37.7-49.0 [facility] Comment on above: Performed By: #### 2 [id number] #### [facility] [address] [place] [address] Hemoglobin (Bld) [Mass/Vol] 12.1 g/dL Low 13.5-17.5 [facility] Comment on above: Performed By: #### 2 [id number] #### [facility] [address] [place] [address] Lymphocytes (Bld) [#/Vol] 1.0 E9/L Normal 1.0-4.0 [facility] Comment on above: Performed By: #### 2 [id number] #### [facility] [address] [place] [address] Lymphocytes/100 WBC (Bld) 16.1 % Normal 14.0-50.0 [facility] Comment on above: Performed By: #### 2 [id number] #### [facility] [address] [place] [address] MCH (RBC) [Entitic mass] 36.0 pg High 27.0-34.0 [facility] Comment on above: Performed By: #### 2 [id number] #### [facility] [address] [place] [address] MCHC (RBC) [Mass/Vol] 34.3 g/dL Normal 31.4-36.0 [facility] Comment on above: Performed By: #### 2 [id number] #### [facility] [address] [place] [address] MCV (RBC) [Entitic vol] 104.9 fL High 80.0-100.0 [facility] Comment on above: Performed By: #### 2 [id number] #### [facility] [address] [place] [address] Monocytes (Bld) [#/Vol] 0.6 E9/L Normal 0.2-1.0 [facility] Comment on above: Performed By: #### 2 [id number] #### [facility] [address] [place] [address] Neutrophils (Bld) [#/Vol] 4.2 E9/L Normal 2.0-7.5 [facility] Comment on above: Performed By: #### 2 [id number] #### [facility] [address] [place] [address] Neutrophils/100 WBC (Bld) 70.1 % Normal 36.0-75.0 [facility] Comment on above: Performed By: #### 2 [id number] #### [facility] [address] [place] [address] Platelet mean volume (Bld) [Entitic vol] 9.0 fL Normal 6.4-10.8 [facility] Comment on above: Performed By: #### 2 [id number] #### [facility] [address] [place] [address] Platelets (Bld) [#/Vol] 81.0 E9/L Low 150.0-500.0 [facility] Comment on above: Result Comment: Tierney pheral smear review performed. Performed By: #### 2 [id number] #### [facility] [address] [place] [address] RBC (Bld) [#/Vol] 3.4 E12/L Low 4.3-5.9 [facility] Comment on above: Performed By: #### 2 [id number] #### [facility] [address] [place] [address] WBC corrected for nucl RBC Auto (Bld) [#/Vol] 6.0 E9/L Normal 4.0-11.0 [facility] Comment on above: Performed By: #### 2 [id number] #### [facility] [address] [place] [address] CHEMISTRYOrdered By: SYSTEM SYSTEM on 05-24-2024 Albumin [Mass/Vol] 3.5 g/dL Normal 3.3 - 5.0 gm/dL R emisol Chem Albumin/Globulin [Mass ratio] 0.9 {ratio} Low 1.1 - 2.2 Remisol Chem ALP [Catalytic activity/Vol] 219 [iU]/d High 21 - 98 Int._Unit/L Remisol Chem ALT No additional P-5'-P [Catalytic activity/Vol] 57 [iU]/d High 6 - 46 Int._Unit/L Remisol Chem Anion gap [Moles/Vol] 10 mmol/L Normal 6 - 16 mEq/L Remisol Chem AST [Catalytic activity/Vol] 96 [iU]/d High 5 - 43 Int._Unit/L Remisol Chem Bilirubin [Mass/Vol] 5.3 mg/dL High 0.0 - 1.1 mg/dL Remisol Chem Bilirubin.direct [Mass/Vol] 1.1 mg/dL High 0.0 - 0.4 mg/dL Remisol Chem Calcium [Mass/Vol] 9.0 mg/dL Normal 8.9 - 11. 1 mg/dL Rem[facility] Chem Chloride [Moles/Vol] 102 mmol/L Normal 101 - 1 11 mmol/L Remisol Chem CO2 [Moles/Vol] 25 mmol/L Normal 21 - 31 mmol/L Remis ol Chem Creatinine [Mass/Vol] 0.5 mg/dL Normal 0.5 - 1.3 mg/dL Remisol Chem eGFR 132 mL/min/1.73 m2 Normal >=59mL/mi n/1.73 m2 Remisol Chem Ferritin [Mass/Vol] 401 ng/mL High 24 - 336 ng/mL R emisol Chem Globulin (S) [Mass/Vol] 3.9 g/dL Normal 1.4 - 4.0 gm/dL Remisol Chem Glucose [Mass/Vol] 100 mg/dL Normal 55 - 199 mg/dL Re misol Chem Iron [Mass/Vol] 268 ug/dL High 35 - 153 mcg/dL Gerardo paulina Chem Iron binding capacity [Mass/Vol] 265 ug/dL Normal 250 - 400 mcg/dL Remisol Chem Potassium [Moles/Vol] 4.0 mmol/L Normal 3.5 - 5.3 mmol/L Remisol Chem Protein [Mass/Vol] 7.4 g/dL Normal 6.0 - 7.8 gm/dL R emisol Chem Sodium [Moles/Vol] 133 mmol/L Low 135 - 145 mmol/L Remisol Chem Transferrin [Mass/Vol] 189 mg/dL Low 200 - 370 mg/dL Remisol Chem Urea nitrogen [Mass/Vol] 8 mg/dL Normal 5 - 21 mg/dL Remisol Chem Urea nitrogen/Creatinine [Mass ratio] 16 mg/mg Normal 10 - 20 Remisol Chem CMPon 05-24-2024 Albumin [Mass/Vol] 3.5 g/dL Normal 3.3-5.0 [facility] Comment on above: Performed By: #### 2 [id number] #### [facility] [address] [place] [address] Albumin/Globulin (S) [Mass conc ratio] 0.9 Low 1.1-2.2 [facility] Comment on above: Performed By: #### 2 [id number] #### [facility] [address] [place] [address] ALP [Catalytic activity/Vol] 219 Int._Unit/L High 21- [facility] Comment on above: Performed By: #### 2 [id number] #### [facility] [address] [place] [address] ALT No additional P-5'-P [Catalytic activity/Vol] 57 Int._Unit/L High 6-46 [facility] Comment on above: Performed By: #### 2 [id number] #### [facility] [address] [place] [address] Anion gap [Moles/Vol] 10 mmol/L Normal 6-16 [facility] Comment on above: Performed By: #### 2 [id number] #### [facility] [address] [place] [address] AST [Catalytic activity/Vol] 96 Int._Unit/L High 5-43 [facility] Comment on above: Performed By: #### 2 [id number] #### [facility] [address] [place] [address] Bilirubin [Mass/Vol] 5.3 mg/dL High 0.0-1.1 [facility] Comment on above: Performed By: #### 2 [id number] #### [facility] [address] [place] [address] Calcium [Mass/Vol] 9.0 mg/dL Normal 8.9-11.1 [facility] Comment on above: Performed By: #### 2 [id number] #### [facility] [address] [place] [address] Chloride [Moles/Vol] 102 mmol/L Normal 101-111 [facility] Comment on above: Performed By: #### 2 [id number] #### [facility] [address] [place] [address] CO2 [Moles/Vol] 25 mmol/L Normal 21-31 [facility] Comment on above: Performed By: #### 2 [id number] #### [facility] [address] [place] [address] Creatinine [Mass/Vol] 0.5 mg/dL Normal 0.5-1.3 [facility] Comment on above: Performed By: #### 2 [id number] #### [facility] [address] [place] [address] Globulin (S) [Mass/Vol] 3.9 g/dL Normal 1.4-4.0 [facility] Comment on above: Performed By: #### 2 [id number] #### [facility] [address] [place] [address] Glucose [Mass/Vol] 100 mg/dL Normal 55-199 [facility] Comment on above: Performed By: #### 2 [id number] #### [facility] [address] [place] [address] Potassium [Moles/Vol] 4.0 mmol/L Normal 3.5-5.3 [facility] Comment on above: Performed By: #### 2 [id number] #### [facility] [address] [place] [address] Protein [Mass/Vol] 7.4 g/dL Normal 6.0-7.8 [facility] Comment on above: Performed By: #### 2 [id number] #### [facility] [address] [place] [address] Sodium [Moles/Vol] 133 mmol/L Low 135-145 [facility] Comment on above: Performed By: #### 2 [id number] #### [facility] [address] [place] [address] Urea nitrogen [Mass/Vol] 8 mg/dL Normal 5-21 [facility] Comment on above: Performed By: #### 2 [id number] #### [facility] [address] [place] [address] Urea nitrogen/Creatinine [Mass ratio] 16 No Units Normal 10-20 [facility] Comment on above: Performed By: #### 2 [id number] #### [facility] [address] [place] [address] COAGULATIONOrdered By: Maria Iasbel Chavira on 05-24-2024 aPTT Coag (PPP) [Time] 42.5 s High 25.1 - 36.5 second(s) [facility] Comment on above: Interpretive Data: P arameter 15 days - 4 weeks 1 - [...] coagulation reagent and instrumentation as [facility] Currently there are no coagulation studies available worldwide for children to 14 days, and no normal ranges. Heparin therapeutic range (represented by Anti-Factor Xa activity of 0.2 - 0.4 U/mL) corresponds to PTT of 56.6 - 109.0 sec. INR Coag (PPP) [Relative time] 1.52 {INR} Invalid Interpretation Code [facility] Comment on above: Interpretive Data: I NR results are specifically intended to assess patients stabilized on long-term Anticoagulation therapy suggested INR s Less Intensive Anticoagulation 2.0 3.0 Conventional Range 3.0 4.5 PT Coag (PPP) [Time] 17.1 s High 9.4 - 1 2.5 second(s) [facility] Comment on above: Interpretive Data: [...] coagulation reagent and instrumentation as [facility] Currently there are no coagulation studies available worldwide for children to 14 days, and no normal ranges. Ferritinon 05-24-2024 Ferritin [Mass/Vol] 401 ng/mL High 24-336 [facility] Comment on above: Performed By: #### 2 [id number] #### [facility] [address] [place] [address] HEMATOLOGYOrdered By: SYSTEM SYSTEM on 05-24-2024 Basophils/100 WBC (Bld) 0.8 % Normal 0.0 - 2.0 % Remisol Heme Basophils/Leukocytes Auto (Bld) [Pure # fraction] 0.0 E9/L Normal 0.0 - 0.2 E9/L Remisol Heme Eosinophils (Bld) [#/Vol] 0.2 E9/L Normal 0.0 - 0.5 E9/L Remisol Heme Eosinophils/100 WBC (Bld) 3.4 % Normal 0.0 - 8.0 % Rem[facility] Heme Erythrocyte distribution width (RBC) [Ratio] 16.9 % High 10.9 - 14.2 % [facility] Hematocrit (Bld) [Volume fraction] 35.2 % Low 37.7 - 49.0 % [facility]e Hemoglobin (Bld) [Mass/Vol] 12.1 g/dL Low 13.5 - 17.5 gm/dL [facility]e Lymphocytes (Bld) [#/Vol] 1.0 E9/L Normal 1.0 - 4.0 E9/L [facility]e Lymphocytes/100 WBC (Bld) 16.1 % Normal 14.0 - 50.0 % Rem[facility] Heme MCH (RBC) [Entitic mass] 36.0 pg High 27.0 - 34.0 pg Remisol Heme MCHC (RBC) [Mass/Vol] 34.3 g/dL Normal 31.4 - 36.0 gm/dL Remisol Heme MCV (RBC) [Entitic vol] 104.9 fL High 80.0 - 100.0 fL [facility] Heme Monocytes (Bld) [#/Vol] 0.6 E9/L Normal 0.2 - 1.0 E9/L Rem[facility] Heme Monocytes/100 WBC (Bld) 9.6 % Normal 4.0 - 14.0 % [facility] Heme Neutrophils (Bld) [#/Vol] 4.2 E9/L Normal 2.0 - 7.5 E9/L Rem[facility] Heme Neutrophils/100 WBC (Bld) 70.1 % Normal 36.0 - 75.0 % [facility] Platelet mean volume (Bld) [Entitic vol] 9.0 fL Normal 6.4 - 10.8 fL [facility] Platelets (Bld) [#/Vol] 81.0 E9/L Low 150.0 - 500.0 E9/L [facility] Comment on above: Result Comment: Tierney pheral smear review performed. RBC (Bld) [#/Vol] 3.4 E12/L Low 4.3 - 5.9 E12/L Re misol Heme WBC corrected for nucl RBC Auto (Bld) [#/Vol] 6.0 E9/L Normal 4.0 - 11.0 E9/L Remisol Heme Ironon 05-24-2024 Iron [Mass/Vol] 268 microgram/dL High 35-153 [facility] Comment on above: Performed By: #### 2 [id number] #### [facility] [address] [place] [address] PT & PTTon 05-24-2024 aPTT Coag (PPP) [Time] 42.5 second(s) High 25.1-36.5 [facility] Comment on above: Result Comment: Para [...] coagulation reagent and instrumentation as [facility] Currently there are no coagulation studies available worldwide for children to 14 days, and no normal ranges. Heparin therapeutic range (represented by Anti-Factor Xa activity of 0.2 - 0.4 U/mL) corresponds to PTT of 56.6 - 109.0 sec. Performed By: #### 1 [id number] #### [facility] [address] [place] [address] INR Coag (PPP) [Relative time] 1.52 {INR} Invalid Interpretation Code [facility] Comment on above: Result Comment: INR results are specifically intended to assess patients stabilized on long-term Anticoagulation therapy suggested INR?s ?Less Intensive Anticoagulation? 2.0 ? 3.0 Conventional Range 3.0 ? 4.5 Performed By: #### 1 [id number] #### [facility] [address] [place] [address] PT Coag (PPP) [Time] 17.1 second(s) High 9.4-12.5 [facility] Comment on above: Result Comment: 15 [...] coagulation reagent and instrumentation as [facility] Currently there are no coagulation studies available worldwide for children to 14 days, and no normal ranges. Performed By: #### 1 [id number] #### [facility] [address] [place] [address] TIBC Calculatedon 05-24-2024 Iron binding capacity [Mass/Vol] 265 microgram/dL Normal 250-400 [facility] Comment on above: Performed By: #### 1 [id number] #### [facility] [address] [place] [address] Transferrin [Mass/Vol] 189 mg/dL Low 200-370 [facility] Comment on above: Performed By: #### 1 [id number] #### [facility] [address] [place] [address] eGFRon 05-24-2024 eGFR 132 mL/min/1.73 m2 Normal >=59 [facility] Comment on above: Order Comment: Order added by Discern Expert. Performed By: #### 1 [id number] #### [facility] [address] [place] [address] Ambulatory Visit Summaryon 0 05-12-2024 Ambulatory Visit Summary Ambulatory Visit Summary WILL RALPH :1985 Visit Date:05/12/2024 Ambulatory Visit Instructions Your Diagnosis Liver cirrhosis, alcoholic Alcohol use disorder in remission Elevated liver enzymes Hemolytic anemia Your Care Team Attending Physician - Mario Evans MD Primary Care Physician - Loreta Padilla This Is Your Medications List Contact prescribing physician if questions or concerns Misc Prescription (BP cuff device and appropriate size please) Misc Prescription (Misc DME Prescription) Misc Prescription (Misc DME Prescription) Misc Prescription (Misc DME Prescription) bifidobacterium-lactoba cillus (bifidobacterium-lactob acillus oral tablet) cholecalciferol (cholecalciferol 50,000 intl units oral capsule) doxycycline (doxycycline monohydrate 100 mg oral capsule) folic acid (folic acid 1 mg Tab) furosemide (furosemide 20 mg Tab) lactulose (lactulose 10 g/15 mL Oral Syrup) levofloxacin (levofloxacin 750 mg Tab) meloxicam (meloxicam 7.5 mg Tab) multivitamin (Tab-A-Scott oral tablet) naloxone (Narcan 4 mg/0.1 mL nasal spray) ondansetron (Zofran ODT 4 mg Tab) oxycodone (oxyCODONE 5 mg Tab) potassium chloride (Potassium Chloride (Uza-Nlhu-Uhs M20) 20 mEq oral tablet, extended release) promethazine (promethazine 25 mg Tab) spironolactone (spironolactone 50 mg Tab) Procedures Performed EGD - esophagogastroduodenosc opy (11/11/2023), Esophagogastroduodenosc opy (09/30/2023), I and D, Jaw. Discharge Vitals Heart Rate (Peripheral) 77 Blood Pressure 114/72 Height 170 cm Height 67 in Weight 73 kg Weight 160.6 lb BMI 25.26 What to do next Scheduled Follow-Up Appointments Thursday 10:30 AM EDT With: Where: [facility] 2023 1:15 PM EDT With: Carrol MULTANI, Mario Xiong Where: [facility] [address] [facility] [address] [place] [address]- 2023 2:40 PM EST With: Kavon Lu DO Where: Oncology Thursday 3:00 PM EST With: Loreta Padilla Where: [facility] [address], [place] [address]- You Need to Complete the Following Alpha Fetoprotein Tumor Marker, Blood, Routine collect, 05/12/24, Order for future visit, Lab Collect, Alcoholic cirrhosis, Print Label By Order Location [id number], Blood, Routine collect, 05/12/24, Order for future visit, Lab Collect, Alcoholic cirrhosis Hemolytic anemia Elevated liver enzymes, Print Label By Order Location GEOVANNA w/Reflex if POS, Blood, Routine collect, 05/12/24, Order for future visit, Lab Collect, Alcoholic cirrhosis Hemolytic anemia Elevated liver enzymes, Print Label By Order Location Antimitochondrial Antibody, Quantitative, Blood, Routine collect, 05/12/24, Order for future visit, Lab Collect, Alcoholic cirrhosis Hemolytic anemia Elevated liver enzymes, Print Label By Order Location Bilirubin Direct, Blood, Routine collect, 05/12/24, Order for future visit, Lab Collect, Alcoholic cirrhosis Hemolytic anemia Elevated liver enzymes, Print Label By Order Location CBC w/ Auto Diff, Blood, Routine collect, 05/12/24, Order for future visit, Lab Collect, Alcoholic cirrhosis Hemolytic anemia Elevated liver enzymes, Print Label By Order Location Ceruloplasmin, Blood, Routine collect, 05/12/24, Order for future visit, Lab Collect, Alcoholic cirrhosis Hemolytic anemia Elevated liver enzymes, Print Label By Order Location Comprehensive Metabolic Panel, Blood, Routine collect, 05/12/24, Order for future visit, Lab Collect, Alcoholic cirrhosis Hemolytic anemia Elevated liver enzymes, Print Label By Order Location Comprehensive Metabolic Panel, Blood, Routine collect, 05/12/24, Order for future visit, Lab Collect, Alcoholic cirrhosis Hemolytic anemia Elevated liver enzymes, Print Label By Order Location Ferritin, Blood, Routine collect, 05/12/24, Order for future visit, Lab Collect, Alcoholic cirrhosis Hemolytic anemia Elevated liver enzymes, Print Label By Order Location Hepatitis A Virus (HAV) Antibody, Total, Blood, Routine collect, 05/12/24, Order for future visit, Lab Collect, Alcoholic cirrhosis Hemolytic anemia Elevated liver enzymes, Print Label By Order Location Hepatitis B Surface Antibody, Blood, Routine collect, 05/12/24, Order for future visit, Lab Collect, Alcoholic cirrhosis Hemolytic anemia Elevated liver enzymes, Print Label By Order Location Hepatitis B Surface Antigen, Blood, Routine collect, 05/12/24, Order for future visit, Lab Collect, Alcoholic cirrhosis Hemolytic anemia Elevated liver enzymes, Print Label By Order Location IgG, Quant., Blood, Routine collect, 05/12/24, Order for future visit, Lab Collect, Alcoholic cirrhosis Hemolytic anemia Elevated liver enzymes, Print Label By Order Location Maurice Nowak (more content not included)... Normal [facility] Gastroenterology Office/Clin ic Noteon 05-12-2024 Gastroenterology Office/Clinic Note Gastroenterology Office/Clinic Note HPI Staff Patient is a(n) 38 year old male who presents today for a(n) 6 month follow-up. Was referred to [facility] 12/4023 for possible cholecystectomy d/t high risk. Denies blood thinners/GLP-1 agonists. Last visit 09/01/23 w/Dr. Evans: Assessment/Plan 1. Alcohol use disorder in remission (F10.91: Alcohol use, unspecified, in remission) Diagnosed few years ago, was actively drinking, he quit then He had a biopsy done at [facility] in January 2023, he had hepatic venous [...] due, last one was around January and [facility] report not available - Transplant Status: Obtain [...] (K70.30: Alcoholic cirrhosis of liver without ascites) 4. Hemolytic anemia (D58.9: Hereditary hemolytic anemia, unspecified) 5. Smokeless tobacco use (Z72.0: Tobacco use) 6. BMI 23.0-23.9, adult (Z68.23: Body mass index [BMI] 23.0-23.9, adult) liver 09/03/23: IMPRESSION: CHOLELITHIASIS. ASCITES. Laboratory Results CBC CMP PT Basophil Absolute: 0 E9/L (05/06/24) A/G Ratio: 0.9 Low (05/06/24) INR: 1.81 (12/21/23) Basophil Auto: 0.6 % (05/06/24) AGAP: 9 mEq/L (05/06/24) PT: 20.4 second(s) High (12/21/23) Eos Absolute: 0.2 E9/L (05/06/24) Albumin Lvl: 3.2 gm/dL Low (05/06/24) Eos Auto: 6.5 % (05/06/24) Alk Phos: 190 Int._Unit/L High (05/06/24) Hct: 35.8 % Low (05/06/24) ALT: 39 Int._Unit/L (05/06/24) HGB: 12.1 gm/dL Low (05/06/24) AST: 73 Int._Unit/L High (05/06/24) Lymph Absolute: 0.9 E9/L Low (05/06/24) Bili Total: 5.4 mg/dL High (05/06/24) Lymph Auto: 23.8 % (05/06/24) BUN: 6 mg/dL (05/06/24) MCH: 36.2 pg High (05/06/24) BUN/Creat Ratio: 12 (05/06/24) MCHC: 34 gm/dL (05/06/24) Calcium Lvl: 8.2 mg/dL Low (05/06/24) MCV: 106.7 fL High (05/06/24) Chloride: 101 mmol/L (05/06/24) [place] Absolute: 0.4 E9/L (05/06/24) CO2: 26 mmol/L (05/06/24) [place] Auto: 11 % (05/06/24) Creatinine: 0.5 mg/dL (05/06/24) MPV: 9.1 fL (05/06/24) Globulin: 3.7 gm/dL (05/06/24) Neutro Absolute: 2.2 E9/L (05/06/24) Glucose Lvl: 165 mg/dL (05/06/24) Neutro Auto: 58.1 % (05/06/24) Potassium Lvl: 4 mmol/L (05/06/24) Platelet: 98 E9/L Low (05/06/24) Sodium Lvl: 132 mmol/L Low (05/06/24) RBC: 3.4 E12/L Low (05/06/24) Total Protein: 6.9 gm/dL (05/06/24) RDW: 16.8 % High (05/06/24) WBC: 3.7 E9/L Low (05/06/24) Liver Studies Ferritin Lvl: 527 ng/mL High (02/20/24) Ferritin Lvl: 385 ng/mL High (12/21/23) HCV Ab: Non Reactive (12/21/23) Hep A IgM: Negative (12/21/23) Hep B Core IgM: Negative (12/21/23) Hep Bs Ag: Negative (12/21/23) Iron: 227 mcg/dL High (02/20/24) Iron: 269 mcg/dL High (12/21/23) TIBC: 230 mcg/dL Low (02/20/24) TIBC: 288 mcg/dL (12/21/23) Transferrin: 164 mg/dL Low (02/20/24) Transferrin: 206 mg/dL (12/21/23) History of Present Illness Doing well asymptomatic Assessment/Plan 1. Liver cirrhosis, alcoholic (K70.30: Alcoholic cirrhosis of liver without ascites) Sober for more than 2.5 years Liver biopsy was done at [facility], gradient was 14 mmHg Liver biopsy report is reported steatosis and cirrhosis advanced, suspected alcohol induced based on history I will complete chronic liver disease panel and confirm hepatitis A&B immunity His bilirubin is gradually worsening could be related to hemolytic anemia, follows with oncology, but I will obtain also INR and get his ultrasound to assess his MELD score and see if he needs referral to transplant center - Ascites: low salt diet, on low-dose Lasix Aldactone 20/50 - SBP Prophylaxis: n/a - Varices: EGD banded in September 2023, repeat in November showed small varices, repeat November 2024 - Encephalopathy: none - HCC screening: Due for ultrasound, get AFP - Transplant Status: MELDNa obtain labs - Nutrition: encourage high protein intake and late night snack as well. -Will discuss Coreg and statin next visit - Coffee is encouraged, helps decrease risk of HCC - Repeat cirrhosis panel every 6 months (CBC, CMP, INR, AFP) Health maintenance: Hep A and Hep B status: Uptodate vaccinations per primary care as well 2. Alcohol use disorder in remission (F10. (more content not included)... Normal [facility] Comment on above: Result Comment: Elec tronically Signed By: Carrol MULTANI, Mario Xiong\.br\Date and Time Signed: 05/12/24 16:02 EDT Haptoglobinon 05-08-2024 Haptoglobin [Mass/Vol] mg/dL Low 17-317 [facility] Comment on above: Result Comment: Perf ormed at: [facility] [address] [id number] PhD Poncho Prater Performed By: #### 2 [id number] #### [facility] [address] [place] [address] CHEMISTRYOrdered By: SYSTEM SYSTEM on 05-06-2024 Albumin [Mass/Vol] 3.2 g/dL Low 3.3 - 5.0 gm/dL R emisol Chem Albumin/Globulin [Mass ratio] 0.9 {ratio} Low 1.1 - 2.2 Remisol Chem ALP [Catalytic activity/Vol] 190 [iU]/d High 21 - 98 Int._Unit/L Remisol Chem ALT No additional P-5'-P [Catalytic activity/Vol] 39 [iU]/d Normal 6 - 46 Int._Unit/L Remisol Chem Anion gap [Moles/Vol] 9 mmol/L Normal 6 - 16 mEq/L Remisol Chem AST [Catalytic activity/Vol] 73 [iU]/d High 5 - 43 Int._Unit/L Remisol Chem Bilirubin [Mass/Vol] 5.4 mg/dL High 0.0 - 1.1 mg/dL Remisol Chem Calcium [Mass/Vol] 8.2 mg/dL Low 8.9 - 11. 1 mg/dL Remisol Chem Chloride [Moles/Vol] 101 mmol/L Normal 101 - 1 11 mmol/L Remisol Chem CO2 [Moles/Vol] 26 mmol/L Normal 21 - 31 mmol/L Remis ol Chem Creatinine [Mass/Vol] 0.5 mg/dL Normal 0.5 - 1.3 mg/dL Remisol Chem eGFR 133 mL/min/1.73 m2 Normal >=59mL/mi n/1.73 m2 Remisol Chem Globulin (S) [Mass/Vol] 3.7 g/dL Normal 1.4 - 4.0 gm/dL Remisol Chem Glucose [Mass/Vol] 165 mg/dL Normal 55 - 199 mg/dL Re misol Chem LDH 235 [iU]/d High 93 - 218 Int._Unit/L Remisol Chem Potassium [Moles/Vol] 4.0 mmol/L Normal 3.5 - 5.3 mmol/L Remisol Chem Protein [Mass/Vol] 6.9 g/dL Normal 6.0 - 7.8 gm/dL R emisol Chem Sodium [Moles/Vol] 132 mmol/L Low 135 - 145 mmol/L Remisol Chem Urea nitrogen [Mass/Vol] 6 mg/dL Normal 5 - 21 mg/dL Remisol Chem Urea nitrogen/Creatinine [Mass ratio] 12 mg/mg Normal 10 - 20 Remisol Chem HEMATOLOGYOrdered By: SYSTEM SYSTEM on 05-06-2024 Basophils/100 WBC (Bld) 0.6 % Normal 0.0 - 2.0 % Remisol Heme Basophils/Leukocytes Auto (Bld) [Pure # fraction] 0.0 E9/L Normal 0.0 - 0.2 E9/L Remisol Heme Eosinophils (Bld) [#/Vol] 0.2 E9/L Normal 0.0 - 0.5 E9/L Remisol Heme Eosinophils/100 WBC (Bld) 6.5 % Normal 0.0 - 8.0 % Remisol Heme Erythrocyte distribution width (RBC) [Ratio] 16.8 % High 10.9 - 14.2 % Remisol Heme Hematocrit (Bld) [Volume fraction] 35.8 % Low 37.7 - 49.0 % Remisol Heme Hemoglobin (Bld) [Mass/Vol] 12.1 g/dL Low 13.5 - 17.5 gm/dL Remisol Heme Lymphocytes (Bld) [#/Vol] 0.9 E9/L Low 1.0 - 4.0 E9/L Remisol Heme Lymphocytes/100 WBC (Bld) 23.8 % Normal 14.0 - 50.0 % Remisol Heme MCH (RBC) [Entitic mass] 36.2 pg High 27.0 - 34.0 pg Remisol Heme MCHC (RBC) [Mass/Vol] 34.0 g/dL Normal 31.4 - 36.0 gm/dL Remisol Heme MCV (RBC) [Entitic vol] 106.7 fL High 80.0 - 100.0 fL Remisol Heme Monocytes (Bld) [#/Vol] 0.4 E9/L Normal 0.2 - 1.0 E9/L Remisol Heme Monocytes/100 WBC (Bld) 11.0 % Normal 4.0 - 14.0 % Remisol Heme Neutrophils (Bld) [#/Vol] 2.2 E9/L Normal 2.0 - 7.5 E9/L Remisol Heme Neutrophils/100 WBC (Bld) 58.1 % Normal 36.0 - 75.0 % Remisol Heme Platelet mean volume (Bld) [Entitic vol] 9.1 fL Normal 6.4 - 10.8 fL Remisol Heme Platelets (Bld) [#/Vol] 98.0 E9/L Low 150.0 - 500.0 E9/L [facility] Comment on above: Result Comment: Tierney pheral smear review performed. RBC (Bld) [#/Vol] 3.4 E12/L Low 4.3 - 5.9 E12/L Re misol Heme Reticulocytes/100 RBC (Bld) 2.4 % High 0.5 - 2.2 % Remisol Heme WBC corrected for nucl RBC Auto (Bld) [#/Vol] 3.7 E9/L Low 4.0 - 11.0 E9/L Remisol Heme Retic Counton 05-06-2024 Reticulocytes/100 RBC (Bld) 2.4 % High 0.5-2.2 [facility] Comment on above: Performed By: #### 2 [id number] #### [facility] [address] [place] [address] Ambulatory Visit Summaryon 0 04-29-2024 Ambulatory Visit Summary Ambulatory Visit Summary WILL RALPH :1985 Visit Date:04/29/2024 Ambulatory Visit Instructions Your Diagnosis Superficial thrombophlebitis of leg Cirrhosis HTN (hypertension) Esophageal varices Anemia Smokeless tobacco use Dependent edema Your Care Team Attending Physician - Loreta Padilla Primary Care Physician - Loreta Padilla This Is Your Medications List bifidobacterium-lactoba cillus (bifidobacterium-lactob acillus oral tablet) furosemide (furosemide 20 mg Tab) promethazine (promethazine 25 mg Tab) Contact prescribing physician if questions or concerns Misc Prescription (BP cuff device and appropriate size please) Misc Prescription (Misc DME Prescription) Misc Prescription (Misc DME Prescription) Misc Prescription (Misc DME Prescription) cholecalciferol (cholecalciferol 50,000 intl units oral capsule) doxycycline (doxycycline monohydrate 100 mg oral capsule) folic acid (folic acid 1 mg Tab) lactulose (lactulose 10 g/15 mL Oral Syrup) levofloxacin (levofloxacin 750 mg Tab) multivitamin (Tab-A-Scott oral tablet) naloxone (Narcan 4 mg/0.1 mL nasal spray) ondansetron (Zofran ODT 4 mg Tab) oxycodone (oxyCODONE 5 mg Tab) potassium chloride (Potassium Chloride (Smp-Tons-Fab M20) 20 mEq oral tablet, extended release) spironolactone (spironolactone 50 mg Tab) Procedures Performed EGD - esophagogastroduodenosc opy (11/11/2023), Esophagogastroduodenosc opy (09/30/2023), I and D, Jaw. Discharge Vitals Temperature (Temporal Artery) 36.8 ?C Heart Rate (Peripheral) 90 Respiratory Rate 18 Blood Pressure 134/76 Height 170 cm Height 67 in Weight 70.1 kg Weight 154.22 lb BMI 24.26 What to do next Scheduled Follow-Up Appointments 2023 1:40 PM EDT With: Kavon Lu DO Where: [facility] 2023 3:15 PM EDT With: Carrol MULTANI, Mario Xiong Where: [facility] [address] [address]- Medications What How Much When Why Instructions New bifidobacterium-lactoba cillus (bifidobacterium-lactob acillus oral tablet) 1 Tablets By Mouth Every day Pickup at [facility] #[id number] New promethazine (promethazine 25 mg Tab) 1 Tablets By Mouth Every 6 hours as needed for for nausea/vomiting Pickup at [facility] #[id number] Changed furosemide (furosemide 20 mg Tab) 1 Tablets By Mouth Every day Cirrhosis Dependent edema Pickup at [facility] #[id number] Unchanged cholecalciferol (cholecalciferol 50,000 intl units oral capsule) 1 Capsules By Mouth Every 7 days Vitamin D deficiency Contact prescribing physician if questions or concerns Unchanged doxycycline (doxycycline monohydrate 100 mg oral capsule) TAKE 1 CAPSULE BY MOUTH TWICE DAILY FOR 14 DAYS Contact prescribing physician if questions or concerns Unchanged folic acid (folic acid 1 mg Tab) 1 Tablets By Mouth Every day Anemia Contact prescribing physician if questions or concerns Unchanged lactulose (lactulose 10 g/ 15 mL Oral Syrup) 30 Milliliter By Mouth 4 times a day Contact prescribing physician if questions or concerns Unchanged levofloxacin (levofloxacin 750 mg Tab) TAKE 1 TABLET BY MOUTH DAILY FOR 14 DAYS Contact prescribing physician if questions or concerns Unchanged Misc Prescription (BP cuff device and appropriate size please) See instructions HTN (hypertension) BP Device/ machine and cuff (size appropriate) Contact prescribing physician if questions or concerns Unchanged Misc Prescription (Misc DME Prescription) See instructions Reading SAP Dressing 4 x 4 dressing Contact prescribing physician if questions or concerns Unchanged Misc Prescription (Misc DME Prescription) See instructions LiquidIV hydration Contact prescribing physician if questions or concerns Unchanged Misc Prescription (Misc DME Prescription) See instructions Muscle & joint balm CBD 880mg Contact prescribing physician if questions or concerns Unchanged multivitamin (Tab-A-Scott oral tablet) 1 Tablets By Mouth Every day Contact prescribing physician if questions or concerns Unchanged naloxone (Narcan 4 mg/ 0.1 mL nasal spray) 4 Milligram Nasal Inhalation As Directed Pain for suspected overdose symptoms Contact prescribing physician if questions or concerns Unchanged ondansetron (Zofran ODT 4 mg Tab) 1 Tablets By Mouth 3 times a day as needed for Nausea Nausea Contact prescribing physician if questions or concerns Unchanged oxycodone (oxyCODONE 5 mg Tab) 0.5 tab By Mouth Every 6 hours as needed for for pain Peripheral vascular disease Leg pain for leg pain- severe pain only Contact prescribing physician if questions or concerns Unchanged potassium chloride (Potassium Chloride (Ioo-Bkla-Gwk M20) 20 mEq oral tablet, extended release) 1 Tablets By Mouth 2 times a day Contact prescribing physician if questions or concerns Unchanged spironolactone (spironolac (more content not included)... Normal [facility] Family Medicine Office/Clini c Noteon 04-29-2024 Family Medicine Office/Clinic Note Family Medicine Office/Clinic Note Chief Complaint 3 month follow up-HTN, Liver cirrhosis, epigastric pain HPI Staff Reason for visit: 3 month follow up-HTN, Liver Cirrhosis, and epigastric pain Note: Patient states he has been in the hospital for cellulitis and UTI . Patient states he had a blood clot in his right leg Patient is here for follow up on hypertension. How often are you checking your blood pressure? Doesnt check BP at home What are your average readings? N/A, Not checking at home Are you compliant with your medications or having difficulty affording your medications? no Have you had any ER visits or hospitalizations since last visit:Yes Have you had any recent cardiopulmonary testing: Yes Monitored Do you have side effects from the medication? None Do you have any of the following symptoms? Chest Pain? no Palpitations? no GA/SOB? no Headache? no Peripheral Edema? yes Right foot Light Headedness? no History of Present Illness Patient was recently hospitalized at [facility] with right leg cellulitis and UTI, he was c/o urinary burning, discoloration and rapid decline. TODAY No symptoms of UTI noted. Patient remains a-febrile. RLE edema, pain no redness continues. No drainage noted. Patient states he was seen at [facility] and told he had a superficial blood clot in LE He was only given anticoagulant while in the hospital. Patient is eating and drinking well. No changes in sleeping pattern noted. Patient was given IV and oral antibiotics, one day left of meds He is still having pain-he takes oxycodone very sparingly. He was given 33 months ago and has made them last. He cannot take Tylenol. He was advised to use Motrin sparingly due to esophageal varices history. swelling is slightly better, but worse because he is back to work, compression socks- 30 compression usually + nausea, constipated since procedure, no vomiting, skin is closed and healed, , groin left - bruising noted after cath in dime box, patient report he went to [place] to have Dr Bertrand said everything looked okay but patient and vascular team still think there is something going on . Blood cultures negative. Has an appt with Dr Bertrand May 12. He has an appointment with Hematology next month Nov with Dr Evans- EGD - esophageal varies Review of Systems PHQ Score Initial Depression Screen Score: 0 SCORE Physical Exam Vitals & Measurements T: 36.8 ?C(Temporal Artery) HR: 90(Peripheral) RR: 18 BP: 134/76 SpO2: 99% HT: 67 in HT: 170 cm WT: 70.1 kg WT: 154.22 lb BMI: 24.26 General: alert, no acute distress, _well appearing, _pleasant middle-age male poor dentition, moist mucous membranes ENMT: oral mucosa moist, no pharyngeal erythema or exudate, Cardiovascular: regular rate and rhythm, normal peripheral perfusion, +2 moderate greater on the right lower extremity only, no edema to the left edema Respiratory: no distress, Lungs CTA, respirations non labored Extremities: no deformity, no trauma bilateral lower extremities with full all compression stockings in place. They were removed for exam to the right lower extremity, chronic vascular discoloration and edema noted greater on the right with +2-3 pitting edema, nontender to palpation, no open skin present Neurological: oriented x 4, LOC appropriate for age, CN II-XII intact, motor strength equal & normal bilaterally, sensation equal & normal bilaterally, speech normal Integumentary: intact, warm & dry, no rashes, no open sores, jaundice appearance, dark discoloration from sun exposed areas, edema and discoloration noted to the right lower extremity Procedure (12/11/2023 09:28 EDT EC Stress Echo Complete w/ Contrast) Exercise Stress Echocardiogram Report Name: WILL RALPH Study Date: 12/11/2023 08:41 AM BP: 148/85 mmHg Patient Location: [facility] : 1985 Gender: Male Height: 67 in Age: 38 yrs Ethnicity: WHT Weight: 150 lb Reason For Study: Chest pain BSA: 1.8 m2 History: HTN,Murmur,Alcohol use Ordering Physician: John^Loreta^Nadia Referring Physician: Loreta Cummings Performed By: Chloe Angel, RDCS Interpretation Summary Stress echo test aborted after [...] Echocardiogram Report Name: WILL RALPH Study Date: 12/11/19 (more content not included)... Normal [facility] Comment on above: Result Comment: Elec tronically Signed By: Loreta Padilla\.br\Date and Time Signed: 04/29/24 10:26 EDT POC BUN CREATon 04-26-2024 Creatinine [Mass/Vol] 0.5 mg/dL Low 0.7-1.2 [facility] Comment on above: Result Comment: METH OD TRACEABLE TO IDMS STANDARD Performed By: #### I BC #### [facility] ([id number]) [address] [place] [address] eGFR (CKD-EPI) NON-RACE DEPENDENT >90 Normal >59 [facility] Comment on above: Result Comment: Reported eGFR is based on the CKD-EPI 2020 equation that does not use a race coefficient. Performed By: #### I BC #### [facility] ([id number]) [address] [place] [address] Urea nitrogen [Mass/Vol] 9 mg/dL Normal 6-23 [facility] Comment on above: Performed By: #### I BC #### [facility] ([id number]) [address] [place] [address] [facility] 04-18-20 [facility] Case Information Case Priority: None Programs: -- Referral Source: Cyber Security Referral Reason: Care coordination Case Type: Transition Care Management Risk Score: -- Case Status: Enrolled (April 05, 2024) Date Assigned: April 05, 2024 Assigned By: Nasrin Greene RN Date Enrolled: April 05, 2024 Assigned Primary Personnel: Nasrin Greene RN Assigned Secondary Personnel: Kamari GREER, Shannon Cosme Case Physician: Loreta Padilla Problems Ongoing Abnormal stress test Alcohol [...] Heavy alcohol use Procedure/Surgical History EGD - esophagogastroduodenosc opy (11/11/2023), Esophagogastroduodenosc opy (09/30/2023), I and D, Jaw. Home Medications [...] gm= 30 mL, Oral, QID, 1 refills Misc DME Prescription, See Instructions Misc DME Prescription, See Instructions Misc DME Prescription, See Instructions Narcan 4 mg/0.1 mL nasal spray, 4 mg, Nasal, As Directed oxyCODONE 5 mg Tab, 0.5 tab, Oral, q6hr, PRN Potassium Chloride (Myg-Bufz-Nlm M20) 20 mEq oral tablet, extended release, [...] Goals and Interventions Care Plan Progress Note Courtesy Call-Patient states he is doing okay. No symptoms of UTI noted. Patient remains a-febrile. RLE edema, pain and redness continues. No drainage noted. Patient states he was seen at [facility] and told he had a superficial blood clot in LE and was given anticoagulants. Patient is eating and drinking well. No complaints with bowels. No changes in sleeping pattern noted. Patient has PCP follow up on 04/29/2024 at 09:20 AM. No questions or concerns noted at this time. Communication Events Date: April 18, 2024 Method: Phone call Type: Outbound Duration (min): 4 Outcome: Case discussion Contact Type: Patient Contact Name: WILL RALPH Notes: Courtesy Call-see summary note. Created By: Nasrin Greene RN Date: April 05, 2024 Method: Phone call Type: Outbound Duration (min): 7 Outcome: Case discussion Contact Type: Patient Contact Name: WILL RALPH Notes: TCM #1-see summary note. Created By: Nasrin Greene RN [facility] 04-05-20 [facility] Case Information Case Priority: None Programs: -- Referral Source: Cyber Security Referral Reason: Care coordination Case Type: Transition Care Management Risk Score: -- Case Status: Enrolled (April 05, 2024) Date Assigned: April 05, 2024 Assigned By: Nasrin Greene RN Date Enrolled: April 05, 2024 Assigned Primary Personnel: Nasrin Greene RN Assigned Secondary Personnel: Shannon Benites RN Case Physician: Loreta Padilla Problems Ongoing Abnormal stress test Alcohol [...] Heavy alcohol use Procedure/Surgical History EGD - esophagogastroduodenosc opy (11/11/2023), Esophagogastroduodenosc opy (09/30/2023), I and D, Jaw. Home Medications [...] gm= 30 mL, Oral, QID, 1 refills Misc DME Prescription, See Instructions Misc DME Prescription, See Instructions Misc DME Prescription, See Instructions Narcan 4 mg/0.1 mL nasal spray, 4 mg, Nasal, As Directed oxyCODONE 5 mg Tab, 0.5 tab, Oral, q6hr, PRN Potassium Chloride (Exn-Msej-Igs M20) 20 mEq oral tablet, extended release, [...] Discharge: 04/03/2024 Follow-up appointment scheduled? Yes. Vivi Cummings on 04/15/2024 at 09:20 AM Did you [...] the following appointment with patient: with Vivi Cummings on 04/15/2024 at 09:20 AM. Patient denies any questions or concerns at this time. Explained TCM program and provided patient with CN contact number. Communication Events Date: April 05, 2024 Method: Phone call Type: Outbound Duration (min): 7 Outcome: Case discussion Contact Type: Patient Contact Name: WILL RALPH Notes: TCM #1-see summary note. Created By: Jc GREER, Nasrin Zuniga [facility] Heart and Vascular Office/[facility] Noteon 03-17-2024 Heart and Vascular Office/Clinic Note [...] 08:41 AM BP: 148/85 mmHg Patient Location: [facility] : 1985 Gender: Male Height: 67 in Age: 38 yrs Ethnicity: T Weight: 150 lb Reason For Study: Chest pain BSA: 1.8 m2 History: HTN,Murmur,Alcohol use Ordering Physician: Lexi^Nadia Referring Physician: Loreta Cummings Performed By: Chloe Angel, [facility] Interpretation Summary Stress echo test aborted after [...] 08:15 AM BP: 148/85 mmHg Patient Location: [facility] HR: 65 : 1985 Gender: Male Height: 67 in Age: 38 yrs Ethnicity: WHT Weight: 150 lb Reason For Study: Chest pain BSA: 1.8 m2 History: HTN,Alcohol use Ordering Physician: John^Loreta^Nadia Referring Physician: Loreta Cummings Performed By: Chloe Angel [facility] Interpretation Summary No comparison study is available. [...] Abnormal stress test Alcohol use disorder in community health (more content not included)... Normal [facility] Comment on above: Result Comment: Elec tronically Signed By: Shalonda MULTANI, Marc Love\.chidi\Date and Time Signed: 03/17/24 14:46 EDT Lab Miscellaneous-LCon 03-09 Lab Miscellaneous COMMENT Invalid Interpretation Code [facility] Comment on above: Result Comment: Test Ordered: [id number] Hered.Hemochromatosis, DNA Hereditary Hemochromatosis Comment TG Results: c.845G>A (p.Wur752Etd) - Not Detected c.187C>G (p.Jsp80Jyi) - Not Detected c.193A>T (p.Bdd24Ckd) - Detected, heterozygous Not associated with increased [...] for patients who are homozygous for c.845G>A (p.Xpj831Mao) and have yet to experience clinical symptoms. Comments: The most common HFE variants associated with hereditary hemochromatosis are c.845G>A (p.Ann212Acv), c.187C>G (p.Zpd20Jls), c.193A>T (p.Dge79Tsb). While patients homozygous for c.845G>A (p.Ptx148Ffp) are the most likely to present clinical symptoms, less than 10% develop clinically significant iron overload with tissue and organ damage. Genetic counseling is recommended to discuss the potential clinical implications of positive results, as well as recommendations for testing family members. Genetic Coordinators are available for health care providers to discuss results at [phone] Test Details: Three variants analyzed: c.845G>A (p.Uxr501Qaf), commonly referred to as C282Y c.187C>G (p.Lti27Ahg), commonly referred to as H63D c.193A>T (p.Jhe74Wnz), commonly referred to as S65C Methods/Limitations: DNA [...] developed and its performance characteristics determined by [facility]. It has not been cleared or approved by the Food and Drug Administration. References: Jh BR, Xavier PC, Diane KV, Ilya LW, Allan ; [employer]. Diagnosis and management of hemochromatosis: 2011 practice guideline by the [employer] Liver Diseases. Hepatology. 2011 Mar;54(1):328-43. doi: 10.1002/hep.32144. PMID: 75558954; PMCID: [id number]. Jasson G, Blake P, Scarlet DW, Kalyn H, Elliott O, Humberto S, Myles I, Nehemias M, Sanjay S. [facility] best practice guidelines for the molecular genetic diagnosis of hereditary hemochromatosis (HH). Eur J Hum Sisi. 2016 Dec;24(4):479-95. doi: 10.1038/ejhg.2015.128. Epub 2014Mar 14. PMID: 37789038; PMCID: KYJ5385205. Reviewed by: Comment TG Technical Component performed at [facility] RTP Professional Component performed by: Selena Funes, Ph.D., [facility] Director, Molecular Genetics [address] [place] [address] Performed at: [address] [id number] PhD Poncho Prater Performed By: #### 1 [id number] #### [facility] [address] [place] [address] Copper Lvlon 03-04-2024 Copper [Mass/Vol] 80 microgram/dL Invalid Interpretation Code 69-132 [facility] Comment on above: Result Comment: This test was developed and its performance characteristics determined by [facility]. It has not been cleared or approved by the Food and Drug Administration. Detection Limit = 5 Performed at: [address] [id number] MD Héctor Carney Performed By: #### 1 [id number] #### [facility] [address] [place] [address] Haptoglobinon 03-04-2024 Haptoglobin [Mass/Vol] mg/dL Low 17-317 [facility] Comment on above: Result Comment: Perf ormed at: [facility] [id number] [place], [place] [id number] PhD Poncho Prater Performed By: #### 2 [id number] #### [facility] [address] [place] [address] BLOOD BANKOrdered By: Maria Isabel bain on 03-02-2024 AYLIN IgG/C3d Tube Negative (03/02/24 1:51 PM) Normal [facility] BB Subsection Bili Tot/Diron 03-02-2024 Bilirubin [Mass/Vol] 5.0 mg/dL High 0.0-1.1 [facility] Comment on above: Performed By: #### 2 [id number] #### [facility] [address] [place] [address] Bilirubin.direct [Mass/Vol] 1.2 mg/dL High 0.0-0.4 [facility] Comment on above: Performed By: #### 2 [id number] #### [facility] [address] [place] [address] Bilirubin.indirect [Mass or moles/Vol] 3.8 mg/dL High 0.1-0.9 [facility] Comment on above: Performed By: #### 2 [id number] #### [facility] [address] [place] [address] CBC w/ Auto Diffon 4 Basophils/100 WBC (Bld) 0.6 % Normal 0.0-2.0 [facility] Comment on above: Performed By: #### 2 [id number] #### [facility] [address] [place] [address] Basophils/Leukocytes Auto (Bld) [Pure # fraction] 0.0 E9/L Normal 0.0-0.2 [facility] Comment on above: Performed By: #### 2 [id number] #### [facility] [address] [place] [address] Eosinophils (Bld) [#/Vol] 0.1 E9/L Normal 0.0-0.5 [facility] Comment on above: Performed By: #### 2 [id number] #### [facility] [address] [place] [address] Eosinophils/100 WBC (Bld) 3.0 % Normal 0.0-8.0 [facility] Comment on above: Performed By: #### 2 [id number] #### [facility] [address] [place] [address] Erythrocyte distribution width (RBC) [Ratio] 15.6 % High 10.9-14.2 [facility] Comment on above: Performed By: #### 2 [id number] #### [facility] [address] [place] [address] Hematocrit (Bld) [Volume fraction] 33.0 % Low 37.7-49.0 [facility] Comment on above: Performed By: #### 2 [id number] #### [facility] [address] [place] [address] Hemoglobin (Bld) [Mass/Vol] 11.7 g/dL Low 13.5-17.5 [facility] Comment on above: Performed By: #### 2 [id number] #### [facility] [address] [place] [address] Lymphocytes (Bld) [#/Vol] 1.1 E9/L Normal 1.0-4.0 [facility] Comment on above: Performed By: #### 2 [id number] #### [facility] [address] [place] [address] Lymphocytes/100 WBC (Bld) 24.5 % Normal 14.0-50.0 [facility] Comment on above: Performed By: #### 2 [id number] #### [facility] [address] [place] [address] MCH (RBC) [Entitic mass] 37.3 pg High 27.0-34.0 [facility] Comment on above: Performed By: #### 2 [id number] #### [facility] [address] [place] [address] MCHC (RBC) [Mass/Vol] 35.5 g/dL Normal 31.4-36.0 [facility] Comment on above: Performed By: #### 2 [id number] #### [facility] [address] [place] [address] MCV (RBC) [Entitic vol] 105.0 fL High 80.0-100.0 [facility] Comment on above: Performed By: #### 2 [id number] #### [facility] [address] [place] [address] Monocytes (Bld) [#/Vol] 0.4 E9/L Normal 0.2-1.0 [facility] Comment on above: Performed By: #### 2 [id number] #### [facility] [address] [place] [address] Neutrophils (Bld) [#/Vol] 2.7 E9/L Normal 2.0-7.5 [facility] Comment on above: Performed By: #### 2 [id number] #### [facility] [address] [place] [address] Neutrophils/100 WBC (Bld) 62.6 % Normal 36.0-75.0 [facility] Comment on above: Performed By: #### 2 [id number] #### [facility] [address] [place] [address] Platelet 85.0 E9/L Low 150.0-500.0 [facility] Comment on above: Performed By: #### 2 [id number] #### [facility] [address] [place] [address] Platelet mean volume (Bld) [Entitic vol] 9.2 fL Normal 6.4-10.8 [facility] Comment on above: Performed By: #### 2 [id number] #### [facility] [address] [place] [address] RBC (Bld) [#/Vol] 3.2 E12/L Low 4.3-5.9 [facility] Comment on above: Performed By: #### 2 [id number] #### [facility] [address] [place] [address] WBC corrected for nucl RBC Auto (Bld) [#/Vol] 4.4 E9/L Normal 4.0-11.0 [facility] Comment on above: Performed By: #### 2 [id number] #### [facility] [address] [place] [address] CHEMISTRYOrdered By: SYSTEM SYSTEM on 03-02-2024 Bilirubin [Mass/Vol] 5.0 mg/dL High 0.0 - 1.1 mg/dL Remisol Chem Bilirubin.direct [Mass/Vol] 1.2 mg/dL High 0.0 - 0.4 mg/dL Remisol Chem Bilirubin.indirect [Mass or moles/Vol] 3.8 mg/dL High 0.1 - 0.9 mg/dL Remisol Chem Folate [Mass/Vol] 20.5 ng/mL Normal >=6.7ng/mL Remisol Chem Free T4 [Mass/Vol] 0.64 ng/dL Normal 0.58 - 1. 64 ng/dL Rem[facility] Chem LDH 238 [iU]/d High 93 - 218 Int._Unit/L Remisol Chem TSH Qn 1.24 m[IU]/L Normal 0.34 - 5.60 mcIU/mL Remisol Chem Consenton 03-02-2024 Consent [id number] [facility] [id number]#1.00T IFF Normal [facility] Consent for Treatmenton 02-06 Consent for Treatment [id number]#1.00T IFF Normal [facility] AYLIN IgG/C3d.on 03-02-2024 AYLIN IgG/C3d Tube Negative Normal [facility] Comment on above: Performed By: #### 8 [id number] #### [facility] [address] [place] [address] Folateon 03-02-2024 Folate [Mass/Vol] 20.5 ng/mL Normal >=6.7 [facility] Comment on above: Performed By: #### 2 [id number] #### [facility] [address] [place] [address] Free T4on 03-02-2024 Free T4 [Mass/Vol] 0.64 ng/dL Normal 0.58-1.64 [facility] Comment on above: Performed By: #### 2 [id number] #### [facility] [address] [place] [address] HEMATOLOGYOrdered By: SYSTEM SYSTEM on 03-02-2024 Basophils/100 [...] LDHon 03-02-2024 LDH 238 Int._Unit/L High 93-218 [facility] Comment on above: Performed By: #### 2 [id number] #### [facility] [address] [place] [address] Lab Miscellaneous-LCon 03-02 Test Code 237270 Invalid Interpretation Code [facility] Comment on above: Performed By: #### 1 [id number] #### [facility] [address] [place] [address] Test Name HFE gene Invalid Interpretation Code [facility] Comment on above: Performed By: #### 1 [id number] #### [facility] [address] [place] [address] Reference Laboratory Testing Ordered By: Karina Vela on 03-02-2024 Test Code 832683 1 Invalid Interpretation Code [facility] Test Name HFE gene Invalid Interpretation Code [facility] Retic Counton 03-02-2024 Reticulocytes/100 RBC (Bld) 2.7 % High 0.5-2.2 [facility] Comment on above: Performed By: #### 2 [id number] #### [facility] [address] [place] [address] TSHon 03-02-2024 TSH Qn 1.24 m[IU]/L Normal 0.34-5.60 [facility] Comment on above: Performed By: #### 2 [id number] #### [facility] [address] [place] [address] Coding Summary.on 03-01-2024 Coding Summary. SEASGqpc61JBq2cFx+PG hlY WQ+SS7QUICeJ72gnRLyaM7m B1SDNZwQYtbeLYPTOXgTCqR vqeQlUL3cpYBiAMBt IC8+PT9zUFHkEtmiwVDuk1U 7kSO4Y43hrk0hXWxytKL0SW IxNbNogkfrt9fwpEc2UWgaP mluOyBt NCHmbN62HPS6uX65Rs49rWX fxYGso2hnlBu3BvDyAQExHV Y2sUphCIfvh4UkUVBmX94sb FVeh0S8 KFLucCibnDHbYlDbiQB9pR5 aJNwgmvhzi2qxrdriDqc7xa 95kGZsl5M4bQI5C6LxupQ9B GJvbGQg CguhyPSFmD7wbxhmr2bmuyf cTwKqKWVzFEv7DGo2QDFhwR uwVsPqLJ12EPA2NSGpylQsH 2FsLWFs eOciRoC1s9R1Au2RS4VRTfv lF0FNGYFAHTgcmFD+PC90cj 20Q2CrTxhsJyn0YPNeCCN4r RJ8yY3d AYLdXArsa4M3eLS9I3KsviB aas0cu8chERVpYEbsE29ppU Kmg0Y5TFFzuJX2ELRrzBjfJ iBzaG93 Oyc+DIBqlIkps6VpZyyyc8o nx8lzhUs3JhbfWLLkqdUxqE poVKF8m5CjEg0zPEVoiKK9u IS8yR8v ByEzLtM1NQrtM691IjJbvVU zDojwE90oN1KugGH+PHRyPj x1DOXidSjbGF1cP0RoEDMjk mctbGVm bSooVC7zWDSmufgyKWIrhC0 cEUMzJ0d2ZyMvUqT4JCluY7 UdSVNmfltxFf76iB8yNeSuW nW9XMau V6JltmO0EPXryHWzWLwcKRL 6X77oi3Y2PZEkFEFcIIW5yB J0oC2vmAvahuvjmTNwlGfko mVydGlj HXslPXvcN919NBXvnOhcVgX vZGluZyBEYXRlOiAgMDYvMj UvMjAyNDwvdGQ+WYAdVNR2e WxlPSAn xUMjPXqtCf7srYapiNkfVX8 gRAPavjqqEIBzpQ2dQSZjtP VddAmtRK2aYNPksbffk999E iAxMHB0 UQIdtVUyZ5TrhC4wRgLzZQN cAMPcS6LdbISgNHzqR278DM bnAxH1IXLprdIpH9LcLHMki WduOiB0 i0W5Ox4Dj0PmqmiqC2RuhHJ bHxKrBlkgIFy1M8JiCnzjbI I+HW31SRQhBY24YRh3KBC8n WxlPSdi XVDyL4VxdS9bHqQbDPYaQAI kOyc+PHRhYmxlIHdpZHRoPS gdLRToGdGxrEnzFL3bQs5yY GVyLWNv ePkvwXXeYdLsn5naQKMgFXg qYJ5awLiiO6EwlXE9SUQnf3 l3Si98J35uX5CjqHX+PGNvb UF7yHL4 tG5iIdUmCcO9WYtrV842NrF dkLZhPrlvz5rpk1idmXt9Pt D5CSDoxiEhhJzpLHN7p8OsE k97I52l IHdpZHRoPSIxNSUiIHZhbGl enz2rgN8sRm2+WUXyvNT4yO A9bS2jZuOvSaM7GGrzX725C nRvcCIv Ifwdd3eoy7bpoCh3QoLwABR tvrXcwLaaADP2y9FeSb39G2 WpjFlxb1PuPmh4ct51sUFvz 0H1lYV8 A8RoSSVfwspapCIquPfzCZ2 uSRKgojphKFOnbQ0nXHVbA0 d7XdZoZpG2BSsqT7OcslC0D GJvbGQg KEPzaVIQgR8wxkadg1lkcxo mGyGwBGLdDKc8WAl1UWQzkW hiUyKzIBI4WoV5SFE6nKAil F8bgVek ssajgH3xHrr+FUV3oIVthPZ BXO2wCsxisME+TAXuYND5xH xyJNabNWDdyC8oUMMbS7g4N iAwLjA1 DSesA4IwhwA8CAYrvNFcGAD btKRJbJ4hcjgad2zsfqgcAj AaXQSgACt2ISk4MTQkcKtjM iBsZWZ0 OpC7TOE7gORhqD0xlJhftmz bdX4uRka+YvrzyKvmAKX8XY v5Y3ZpNbx1BHEthSyjJQ1lr GFkZGlu Og4tlJaxfRsjOB6iBPUauqc li211QyKbn4mnKVYykDZgEL rbBPO8B56ig5P7CCXqNUSzM VC8gIT0 zI2rbXaveijlgKKutNlommQ wnJamBFlwPIagQ932QOLrjG kjUhOdXOf0R7WjPbv5PDHrg IrkHZ4e uVBaIEbtBr7msWutuFmqQS7 vPQRnbaabr982IkWij6onKN ZyeXMnKOdrIAH0I76qg9V2V CMwMDAw QVP4iOB8gF1orDebtotrjBU mdDsgdmVydGljYWwtYWxpZ2 39QZXcbJqbLhGxjTe5K6UjZ ll8CCBu mUryRZ8mfHSuXLciCw6bbHs fmOapEW6uUWBxaekqu507Oi Yxx3lpKQXujTPmTUitFLU9E 79xy6Y4 JCAxKCScTBM1oHD7wV0aeGp nbjogbGVmdDsgdmVydGljYW mhOInoN206QJXvnSxvWlFdp GllbnQg MAyyKAw8U7AgKwsdqEJ+PC9 5SWTxMS86zQEfzRJht6zxwU b3GePhSGVbVEF0pUkmBMfbf 3JkZXIt A06chPSmn2S8KSWjhBispNM dWfKcbPY8qF8zWBemgzafm2 mockspWqoos7qulz94dY91A 29sIHdp ZHRoPSIzMCUiIHZhbGlnbj0 lhM1hPi2+IEJvbHJ1zSU4jR 3gNCUlNdW5BLhrW266FrGqs CIvPjxj m1zkv4ytvVg1YoW1NATcizU lmDgqXIZ2q3LlXi09Y03iAJ dpZHRoPSIyMCUiIHZhbGlnb b6rtW1n Ii8+FZOfdPF0pAG7vC7jGoF gSdF2QTgvQ070WaSuuSYyPs cnW85fR2ScmCE+EDPwEnr1U CBzdHls FZ0qlCOmOEzuFn0pYIB4OlN vClOoKPfuF9SuGBWolrwmly kcvIO0MURgRWVrpO41Ss7ez DogMTBw vAMAyC3bkwnnd4fwiczfXuO nRGHuKTs6VGl0YGKlsUyjGr OsATD1MnE1WEO1yHFanO5hh Glnbjog wJ9iZ3ZiLUQvipfnYk96vB6 kMwVbOhN6TLxoFgc+SEVZTU NRWYZDHM3BSNp5F3MvBad7D CBzdHls SO8hgVHxVYlqSt4nmWdemZc mAT3mJUWnrnzjKCYkhM6lNR NumSEctRhhNB5uPOEwtayci 250OiAx SHA0YRSllIFwO7YdvL4dEiG fBKMmPRHiT3MjlVHfZUwlW7 11GRydZiP1DLLcmcSgM4LvX WFsaWdu RzY8v7B9Bx2gMY7pKl0hXUq 1EU76JG24tPLsr6V6kDT3W8 PiTCWvivsizjhwqRH9TWOgR DUwaW47 mLKtZKcqJo6ru9S0t352AYW vYXSdaU83Fw8cbTguKLMnyB OPbT2uaqwyv7ceivdzGsKwD DAwMDt0 VNj9ZINrqLnzSwHdCCS2LyN 4LUV3jSUnkJ5qeNambftxrV 9wOyc+NmwmSRYauwZ1M1KoF ic0BIDl mXflAG7qpXMqVExoKs1zqVs ssRliNU5bUGVybuexKSIxsU 4sXNOjjAGroFwhKB7cTUKuz enja603 CmNyJVH3CTAoaNMiV2LzpX9 xJcOsOAXlJPJoF2DrwHCxVO liD059PNfkBkX0UXFhjtMeU 2FsLWFs fUzbEcE5g2L0Ga3IQOeyXX4 9HU19pJHfu4M8nZD3D5UcOB ZzbmjpolypjUP5CSZeNOGbm Y93eUWd SOcdCn5ak1X1p972FCFnUDH iwH44Mj9mxUmlMUCmtPFDhU 2mkvpwo6wrwkisAcKvQKFyT Dm7WQa5 WEAciFoyUkMtTYV6CzE9CNW 5cHLxzE3meDlofdatcQ9cFx c+P8N8hKY6wDRgjOndsMJ+P V57yj14 C2XkVqizKhr6ZBGzPNN4bIN 4rN5rFNKeBSbhs1W0cFB7X7 ZzzzSlmh7ea8pqNTRwPRhqQ 29sbGFw v2A9RJYrcCI7XJDsoSavRzU ikL75Bdl+TBIotGclo7YkXw gbu3wmb1skbXh5OkApGWMnf mFsaWdu IEN8a9SzAz11S60tMGkiYRY lJEScVLJjBCCinIigfd6faB 9wIi8+XSRiqCM2jPQ8rS9oM jAlIiB2 VFxgU993LaBkpUJfCgfvg0o yk5indBv7UcHcTBNuxqCnaU naSVV4m0RgOv84L6AhxDlko 8JjRke0 ce95kSZvj2E4zNU0E9KqETX mkjkrrZQghYxnTA5kBGRcmn aaSZYxpP9cDVZuP6a9SyWaC dD4OLix C5MzeaE1VSIojBFeCBWxyAS ZsP9jjzmby8kbrgjdAcLdLG QfSFu3OYx3QAJyoNdtUhWtY LN5FmG2 FUA3bJYsbT5rhTgiirixoL5 wOyc+XFs1s6mkeQYfLR5cwG K2LO71UM75nXKzy2L8vPC0L 3BhZGRp teumyhypeVN0VROmVRHxtD8 1Vz4kpLpoRh8wFIFoZHX3GM RvxJTrQ6PbqK9eZhIvXSOvA EPrO3Pb rVLqKMvaA490ZDruElV0EPQ cveMiV9YxVOEtuBapIdQ0t4 F0Jj0NUM91YR39TR44eCPoy 3W2pCF5 O2HcFYTkvwgnommgcRB2SAP jZYXhzZ36Yz5oiXjoSg1cTS PsVZM8CPEgkPIxW5FwkU8hR iAjMDAw EAKaY9YyxWCrOOnzD579BIt mXpI4XCMapdDiZ4PaZNVsgI wsWlH6l2K2Lc0KNy07CG43Z N06jKOb d8M3xGT6P1RhZPCagbdbqsp shHL3ODIfRPTnoI18Xl3fuC vvBt1wAFIqDRI8LSSnqWYpM 4KnmM8r EmUlICDaNMGtM5AxhERvAKa wH508DAurVuU2VLRabrKaV7 ZpWVIygNpdHnY5g0K9Cy0LH Xllcjo8 U5KfCovepUM+AC50DNBqJM5 8qUXkvMWhd8cvbMz6GnMrJX ZtJTW0qHhxCEwwf5WwKDNiY 29sbGFw p4W1IISkbVtfx (more content not included)... Normal [facility] Coding Summary.on 02-29-2024 Coding Summary. HKBIGhxw09JHy1fZa+PG hlY WQ+BT4LBOSwF49ntJWtuT1f U8HHTPvFNxqaFYVYKVbYZqZ hhvFtCC1whIAkDMPj IC8+SB3tUIFcBtvgfMUey6S 5xCI9S68cff8fWCbmiFD3AR EdUmZnuronr3chxBq1TLudV mluOyBt CIEahM85UIB3yI50Fq07qAZ rdRWio2vbcUb4BuJfXJBqGC E8qJezFBpmz1EvLWLoD52ix EYww2R4 OKLnkEcdjOHgYcNebJW8rH0 kWTecdjaqz6hkggdgAsa1gy 78yIErv8Y9bIR3N1EqknQ3W GJvbGQg VluwsYZKuP6ozwcmk3qpouy wAvTfVOCaTKb5OOt6DHOflN uvHbDdPD38VMV8PRLieeQrG 2FsLWFs qPgjHqF7x8M0Hv9TA0SSNbi wW8HLOKEOYWbxlWS+PC90cj 03O2HrRbqyTqj6ABMsZAR4g LK0kR9i TXRcSJzfi4A6qXM1K0LprvC gxq0fk9dwMDMsOIqoJ06phZ Vun6F5ZMPzcVV7CHXrgDztY iBzaG93 Oyc+IOAihEeuh3WoUbbrp0p hs4uluXg7QascVMYssuZcrU mySVP5i3ZqNu6eRUUeiNQ2o EB3yV6o FfGlYrC4ZWpvM206BqAydZV nXjerF69iU4BpoWV+PHRyPj u8GDWdzYhmJG3yS3PkLBEtf mctbGVm dFurBN1lTWQksjqfCKCqbD6 uHXXxG0m6QwUqSyG6QVioA0 LvBOUbubamGo07mQ8hPqTzC fQ5JNvw M9RokiQ9FRDryVIbXWvhVIZ 2D90jm3N2BZEsIDJiJXF0oC P3uD1rqTpwecdidEYriWkto mVydGlj COcpUGggH427MBAxyQqvJxZ vZGluZyBEYXRlOiAgMDYvMj QvMjAyNDwvdGQ+MOLrCPO6v WxlPSAn sXFbKBshYv6bzPrzmRhgTU1 hNUZtiinqCIBkuU4gGETyzA KopMzfMI2gHLVfkpdlb594D iAxMHB0 SANaoRJmT5DphS6gQbNhYFX eAGPfW7DscKGxIMtuC622NM hdWoW8FBNbuaSdQ8LwQKVnr WduOiB0 f7D7Px3Aq3TbhhmxE3CdeQQ gQdYzRpchPAi4G6CmAwpgeV I+FG07ROSiUZ06QVa6XGN2d WxlPSdi EXFfE1MdcC2xIcSzCXJmTIL kOyc+PHRhYmxlIHdpZHRoPS noWSOoBqIulWvgVL3zRz6yJ GVyLWNv jIxukQQkVsCfr8nrSPZnQYf hIZ4rcEfiG9ZeyMO5DTCxx2 w8Xg90U31wW3GjtCH+PGNvb VK7zVP9 lF1cQvUzViF7HBpfQ474JtE qjLAbAcjwb7skp4spuIu8Le M3POVaoaKjfJwsTDN4c4AnO g89K32j IHdpZHRoPSIxNSUiIHZhbGl xpz5ouI5qUq7+QXZekNP4wE Y9mU2hYyGnPcJ6HMbcK739N nRvcCIv Dysok1tvl6cizTn1NpQoNEL pmgGxaYipHOM7y9DkDy09X5 BkxLelk2YnKqe4iu57xSXda 6J0fXT9 Z9CuZBKnxhncdWLcxCkcRD7 iRPIdusvjTRVkoP7sBXVrL0 e2RyQxTpK7DEoyS7ZdsuH1S GJvbGQg OYHufCYThU2pbudmf3xfbkb aLlWfYUXmSCw9LTu8UPYwqY uhZgGbSPR4UkE7XOW5sORae K9wwIqw xgtkkM7eDzb+USX2lVFouBN LUT6mXdwkiPF+AQQdPPC0iW qaPJtvSZFviZ9eOJLbJ3i7H iAwLjA1 HHtgY7AvocD4EIYlrPJyOEI cdCJTmJ6gmpstb7dqzmfwZr ZpIKFmYHn1CMq8QIJfqLcsA iBsZWZ0 HjK1MYA8oCRxhR2osVigqrk rgM8tRer+AebmqCkrBIQ2XQ n8J9PwPrv9TJQunBsuNI9mh GFkZGlu Oq4gjSvowNkxSE6qCKSpfaw ix556GuRnm3hwBDEppOIxZH idBEH0U77yc1E0SJZhFVGkL PH6eWO7 dD3qyRatdkzeaIGueJecloJ tlDdaCSecALsyN249QPPpsZ fbAjBkUFs6B6DjDfw1NHRfy TiqHK7f qRYfJYkjEr1jhWvzaUbpRL2 bXAPbmutbb778XmToo7ueXN VeqFLcFBefANI4D55af6N4G CMwMDAw SEL2uHT7eE5znEyuvvofoLY mdDsgdmVydGljYWwtYWxpZ2 55IIXoyPxuOhPvtGz5P0KwS qf5UYPw oNarHP6lgRHeDYigDc0jnBk jmPzsBE5bWJDimlvre339Vk Rli2zhCIOpgKKnJFwqFEQ0E 96ui9S7 GSPjZYTjUEI4zAH1oV4bgXz nbjogbGVmdDsgdmVydGljYW msYTajM799MHNyfIweKvGse GllbnQg OVfkWNh4Y3WaVahnrMZ+PC9 7NMPjKE76jNFfhMWwb8oalA o4HrFlMJRqSYR6sHjeXMllc 3JkZXIt D76cmGMzs5R6WWNvvBqveBJ nGnBcbHB4gN8rNYyhpkqfv9 eodgnrUiljs7bwyz74pP61E 29sIHdp ZHRoPSIzMCUiIHZhbGlnbj0 wdF2vNi9+SJDxmZG4kIB2fN 3eFIMsUrG7CGshE248ZiIno CIvPjxj v6neb5gpmTs0YgE2YOWpghF bcLxiOZV0o8HdUe58D04oTK dpZHRoPSIyMCUiIHZhbGlnb s2ivM5h Ii8+EPAtvKZ5bLA6uQ5xAmZ sTrS3RChxK406SfOfuSClOy gcZ15kQ3JkiDA+EUCpQau0W CBzdHls DF1kgLWvDTpyZl2wFWZ7MjE zZbBbKVomF3VsRFOanwnsnh ldoSD2JTOfQUPmaS99Rn2vq DogMTBw tGAKtU6jxpvgs2etddbyRfI lNZDlIHi5YLt5UXWelJvqNg EpSWH8YwP4CNU1cUInfX7ey Glnbjog pX7fI8OfNAFzjebyHb25zB4 fTpAhLhE7FVxxYwq+SEVZTU LKDGAQXL6DCNf0O8YiFym2V CBzdHls GZ4tzICpHBacQo9fmDlnoBc pZQ5fKJCbqqnePJYvaI9jBB AckRFjrLwkUL3cAWRidsqsa 250OiAx FBE3CJLvzVCdT1FztF8uUdP nJKXmORYeS2ToaJLlCRkdB8 52ORmdWvO4BUCbnoThE0ItE WFsaWdu BzP8s5N0Sz4tKY8pIg8uWYt 8KC83IK46iWImx6F5hDI8B3 IzLIKpesdflukngQL6DKXqM DUwaW47 bMSzVKsaIb7ip7J3s584XPF pMPCbfE78Bu6iuSqoWBMeqF JXwP3vkjlkr2wddmxjVkZuY DAwMDt0 CFd4ROOjwKmdXqNwLOE7ZrA 7ZAX4bXRfiD5gwYdjxwkqkB 9wOyc+VhurHCUfzrH1V9QkH mz9DOHs jVwrJX9bxAGuKLykXo9vjPh rwAuiIK5zSREanjroJTGkgZ 6vVQBhsXSkqKiyNJ6jLWAwk puor962 QdDlEGQ9TCGvhWKxS4XzhJ0 tPuWdDAQxJNSfE1RcjESeZU tpO618VSzqDnJ3NDLhslQsZ 2FsLWFs mBqbQzK1y0L5Vy2HWGcdJK5 1CQ78oTDiq7O4qPP1N1PtBV AuakczxgcydGP0DRYfWIBws P66bQTd FIzrJr8ru8K4x450PMEdUCZ xuX63Ht7quBvbXHIdxLGSyO 3sooxxf1huvxbjZqJbVDGiT Ic4UIv0 OVJciJjqTzLlKEC1RjF3DGR 7xCDpoU1yuEdtwbmyrA5rFc c+M8A6dCI6zUFnsWmukEN+P Q59xo09 O8SyNlpzSzf0EGPjWWY4iVB 4jO4kZDAwRFaia9E9dZY0O1 GinwPasx6ew5zvUXHfOZdeF 29sbGFw g3S8LSBquQK8MXXyyTqtXrV ozU16Imv+PIMluIhku5TbRq bkk2usk0ogxXp1JuEsXFUot mFsaWdu EYB2f3ClNw33F70xTNsuQOI rEHXiTBWyQZZxvLmlyh3pvI 9wIi8+KLQmeAB9rKI7mJ0zX jAlIiB2 SCxiG691PlQamSTrUmywm2q ss6xgvQy3LqAbMTJmpxHqzX cnOSI5h6RfKw12F0NbmRizl 8VgJsv2 uv57dTBdg2I3lJL7A2VaXTA lnrbwbATpvCzyLC3gKBFtsc fnGWKhhO2hUBXdX6c0PrAsZ lE7CAkn F5GtzmV9IZXboGZjYMRgpGL BwK4sobdzo5evbpvwFeKbVV FkODh3IDz5UFSqdLtzAnLxP TX4BvS9 QYD6uQKazI0ytRqmnnmstP2 wOyc+UHa2y6zubZAwVR9ekG C8VI21DB07wNSlp5O8xUQ5K 3BhZGRp zjfyifvvuXD6LTZuFDCceD9 8Am6njWerOh1xFDPqVTM8XO DziGQcT8CtkL5nYrLjSETeF TYfP2Fv iNZgWLzyE292GWpxVyT0CWO bfkHuG5CgADUcvJpcAzB0e8 C3Rf1RTC31IL43XZ58eNXkl 6D0lFN3 B5SaHDGvjiywgsxqeKZ7RTT jNZBcyL99Iw4mpRqyCq0eDD NpKRP8CLJpvUCoB7FjgN4jE iAjMDAw VVVqR7ChiBOaBQraR264IUx gXeE4FVZeynIrC7TgGQTvtB xnQfJ0i4O8Vm7SZw02WE99Q L96pTWh s1Y1iIS9R7QuSTFtogdenny xlQS1WDOvENJwwH37Ve5vhD anGd6jLHMtEUM9EFWytXXeR 9RrjF8t DuZoDYOfQFNhD9HbhVPyUQc uD576RIxvMjG8BKUqpzKfC1 KaTZPnpBckKgN6u1E9Qg3WU Xllcjo8 F6ZgAhmilZU+QR74VMSoXM4 8nUGfrVTia6kmqGo9GzDzLH SsXWI1jKrnLBstr8KnSNBcV 29sbGFw n5T1QLPuiIyri (more content not included)... Normal [facility] Consent for Treatmenton 02-06 Consent for Treatment [id number]#1.00T IFF Normal [facility] Laboratory Outside Office Co pyon 02-25-2024 Laboratory Outside Office Copy [id number]#1.00 TIFF Normal [facility] Outside Records Officeon Outside Records Office [id number]#1.00 TIFF Normal [facility] CBC w/ Auto Diffon 4 Basophils/100 WBC (Bld) 0.6 % Normal 0.0-2.0 [facility] Comment on above: Performed By: #### 2 [id number] #### [facility] [address] [place] [address] Basophils/Leukocytes Auto (Bld) [Pure # fraction] 0.0 E9/L Normal 0.0-0.2 [facility] Comment on above: Performed By: #### 2 [id number] #### [facility] [address] [place] [address] Eosinophils (Bld) [#/Vol] 0.1 E9/L Normal 0.0-0.5 [facility] Comment on above: Performed By: #### 2 [id number] #### [facility] [address] [place] [address] Eosinophils/100 WBC (Bld) 3.8 % Normal 0.0-8.0 [facility] Comment on above: Performed By: #### 2 [id number] #### [facility] [address] [place] [address] Erythrocyte distribution width (RBC) [Ratio] 15.5 % High 10.9-14.2 [facility] Comment on above: Performed By: #### 2 [id number] #### [facility] [address] [place] [address] Hematocrit (Bld) [Volume fraction] 33.1 % Low 37.7-49.0 [facility] Comment on above: Performed By: #### 2 [id number] #### [facility] [address] [place] [address] Hemoglobin (Bld) [Mass/Vol] 11.5 g/dL Low 13.5-17.5 [facility] Comment on above: Performed By: #### 2 [id number] #### [facility] [address] [place] [address] Lymphocytes (Bld) [#/Vol] 0.8 E9/L Low 1.0-4.0 [facility] Comment on above: Performed By: #### 2 [id number] #### [facility] [address] [place] [address] Lymphocytes/100 WBC (Bld) 21.1 % Normal 14.0-50.0 [facility] Comment on above: Performed By: #### 2 [id number] #### [facility] [address] [place] [address] MCH (RBC) [Entitic mass] 37.1 pg High 27.0-34.0 [facility] Comment on above: Performed By: #### 2 [id number] #### [facility] [address] [place] [address] MCHC (RBC) [Mass/Vol] 34.7 g/dL Normal 31.4-36.0 [facility] Comment on above: Performed By: #### 2 [id number] #### [facility] [address] [place] [address] MCV (RBC) [Entitic vol] 106.8 fL High 80.0-100.0 [facility] Comment on above: Performed By: #### 2 [id number] #### [facility] [address] [place] [address] Monocytes (Bld) [#/Vol] 0.4 E9/L Normal 0.2-1.0 [facility] Comment on above: Performed By: #### 2 [id number] #### [facility] [address] [place] [address] Neutrophils (Bld) [#/Vol] 2.4 E9/L Normal 2.0-7.5 [facility] Comment on above: Performed By: #### 2 [id number] #### [facility] [address] [place] [address] Neutrophils/100 WBC (Bld) 65.0 % Normal 36.0-75.0 [facility] Comment on above: Performed By: #### 2 [id number] #### [facility] [address] [place] [address] Platelet 73.0 E9/L Low 150.0-500.0 [facility] Comment on above: Result Comment: Tierney pheral smear review performed. Performed By: #### 2 [id number] #### [facility] [address] [place] [address] Platelet mean volume (Bld) [Entitic vol] 8.8 fL Normal 6.4-10.8 [facility] Comment on above: Performed By: #### 2 [id number] #### [facility] [address] [place] [address] RBC (Bld) [#/Vol] 3.1 E12/L Low 4.3-5.9 [facility] Comment on above: Performed By: #### 2 [id number] #### [facility] [address] [place] [address] WBC corrected for nucl RBC Auto (Bld) [#/Vol] 3.8 E9/L Low 4.0-11.0 [facility] Comment on above: Performed By: #### 2 [id number] #### [facility] [address] [place] [address] CHEMISTRYOrdered By: SYSTEM SYSTEM on 02-20-2024 Albumin [...] Calcium [Mass/Vol] 8.4 mg/dL Low 8.9 - 11. 1 mg/dL Remisol Chem Chloride [Moles/Vol] 103 mmol/L Normal 101 - 1 11 mmol/L Remisol Chem CO2 [Moles/Vol] 27 mmol/L Normal [...] ug/dL High 35 - 153 mcg/dL Gerardo [facility] Iron binding capacity [Mass/Vol] 230 ug/dL Low 250 - 400 mcg/dL Remisol Chem Iron saturation [Mass fraction] 99 % High [...] 02-20-2024 Albumin [Mass/Vol] 3.1 g/dL Low 3.3-5.0 [facility] Comment on above: Performed By: #### 2 [id number] #### [facility] [address] [place] [address] Albumin/Globulin (S) [Mass conc ratio] 0.9 Low 1.1-2.2 [facility] Comment on above: Performed By: #### 2 [id number] #### [facility] [address] [place] [address] ALP [Catalytic activity/Vol] 190 Int._Unit/L High 21-98 [facility] Comment on above: Performed By: #### 2 [id number] #### [facility] [address] [place] [address] ALT No additional P-5'-P [Catalytic activity/Vol] 77 Int._Unit/L High 6-46 [facility] Comment on above: Performed By: #### 2 [id number] #### [facility] [address] [place] [address] Anion gap [Moles/Vol] 10 mmol/L Normal 6-16 [facility] Comment on above: Performed By: #### 2 [id number] #### [facility] [address] [place] [address] AST [Catalytic activity/Vol] 120 Int._Unit/L High 5-43 [facility] Comment on above: Performed By: #### 2 [id number] #### [facility] [address] [place] [address] Bilirubin [Mass/Vol] 7.8 mg/dL High 0.0-1.1 [facility] Comment on above: Performed By: #### 2 [id number] #### [facility] [address] [place] [address] Calcium [Mass/Vol] 8.4 mg/dL Low 8.9-11.1 [facility] Comment on above: Performed By: #### 2 [id number] #### [facility] [address] [place] [address] Chloride [Moles/Vol] 103 mmol/L Normal 101-111 [facility] Comment on above: Performed By: #### 2 [id number] #### [facility] [address] [place] [address] CO2 [Moles/Vol] 27 mmol/L Normal 21-31 [facility] Comment on above: Performed By: #### 2 [id number] #### [facility] [address] [place] [address] Creatinine [Mass/Vol] 0.6 mg/dL Normal 0.5-1.3 [facility] Comment on above: Performed By: #### 2 [id number] #### [facility] [address] [place] [address] Globulin (S) [Mass/Vol] 3.4 g/dL Normal 1.4-4.0 [facility] Comment on above: Performed By: #### 2 [id number] #### [facility] [address] [place] [address] Glucose [Mass/Vol] 192 mg/dL Normal 55-199 [facility] Comment on above: Performed By: #### 2 [id number] #### [facility] [address] [place] [address] Potassium [Moles/Vol] 3.6 mmol/L Normal 3.5-5.3 [facility] Comment on above: Performed By: #### 2 [id number] #### [facility] [address] [place] [address] Protein [Mass/Vol] 6.5 g/dL Normal 6.0-7.8 [facility] Comment on above: Performed By: #### 2 [id number] #### [facility] [address] [place] [address] Sodium [Moles/Vol] 136 mmol/L Normal 135-145 [facility] Comment on above: Performed By: #### 2 [id number] #### [facility] [address] [place] [address] Urea nitrogen [Mass/Vol] 6 mg/dL Normal 5-21 [facility] Comment on above: Performed By: #### 2 [id number] #### [facility] [address] [place] [address] Urea nitrogen/Creatinine [Mass ratio] 10 No Units Normal 10-20 [facility] Comment on above: Performed By: #### 2 [id number] #### [facility] [address] [place] [address] Consent for Treatmenton 06- Consent for Treatment [id number] IFF Normal [facility] Ferritinon 02-20-2024 Ferritin [Mass/Vol] 527 ng/mL High 24-336 [facility] Comment on above: Performed By: #### 2 [id number] #### [facility] [address] [place] [address] HEMATOLOGYOrdered By: SYSTEM SYSTEM on 02-20-2024 Basophils/100 [...] 02-20-2024 Iron [Mass/Vol] 227 microgram/dL High 35-153 [facility] Comment on above: Performed By: #### 2 [id number] #### [facility] [address] [place] [address] Iron Saturationon 02-20-2024 Iron binding capacity [Mass/Vol] 230 microgram/dL Low 250-400 [facility] Comment on above: Performed By: #### 2 [id number] #### [facility] [address] [place] [address] Iron saturation [Mass fraction] 99 % High 20-50 [facility] Comment on above: Performed By: #### 2 [id number] #### [facility] [address] [place] [address] Transferrinon 02-20-2024 Transferrin [Mass/Vol] 164 mg/dL Low 200-370 [facility] Comment on above: Performed By: #### 2 [id number] #### [facility] [address] [place] [address] Vit B12on 02-20-2024 Cobalamin (Vitamin B12) [Mass/Vol] pg/mL Normal 50-1500 [facility] Comment on above: Performed By: #### 2 [id number] #### [facility] [address] [place] [address] eGFRon 02-20-2024 eGFR 126 mL/min/1.73 m2 Normal >=59 [facility] Comment on above: Order Comment: Order added by Discern Expert. Performed By: #### 1 [id number] #### [facility] [address] [place] [address] Family Medicine Office/Clini c Noteon 01-29-2024 Family Medicine Office/Clinic Note Chief Complaint 3 month follow up-HTN and Medication check HPI Staff Reason for visit: 3 month follow up-HTN and medication check Patient is here for follow up on hypertension. How often are you checking your blood pressure? Doesnt check BP at home What are your average readings? N/A, Not checking at home Are you compliant with your diet? yes Do you exercise? no Are you compliant with your medications or having difficulty affording your medications? no Have you had any ER visits or hospitalizations since last visit:No Have you had any recent cardiopulmonary testing: No Do you have any of the following symptoms? Chest Pain? no Palpitations? no GA/SOB? no Headache? yes Patient states he had a frontal headache sometime last week Peripheral Edema? yes Patient states he has bilateral leg swelling at times Light Headedness? no History of Present Illness Will Ralph is a 38-year-old male who presents for evaluation of multiple medical concerns. Cholelithiasis. The patient sought consultation at the [facility] in [place], but he was informed that surgical consultation must be at the main campus. He subsequently scheduled an appointment and was informed that they can do the consultation and they will contact [facility]. He was called again and was informed that he is required to consult with a truck service technician. He currently does not experience any pain in the region of his gallbladder. 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 He reports 1 to 2 episodes of flareups since he discontinued mycophenolate. Iron deficiency anemia. He attempted to use iron supplements but discontinued it due to gastrointestinal discomfort. He has been attempting to increase his iron intake and incorporated more iron-rich foods into his diet but feels as though he is not receiving sufficient iron. Leg edema. He placed a roof on his house this weekend, and reports that a week prior, he worked 73 hours and 70 hours this past week. He experienced severe leg edema on the night of 01/26/2024. He has been consistently wearing his socks but admits to not having sufficient time to elevate his legs. He has not collected his spironolactone prescription yet. He has not taken it for a week due to his pharmacy being closed when he plans to collect it. Vitamin D supplementation. He reports taking his prescribed vitamin D. He took his 3-month supply of vitamin D for 7 days due to forgetting to read his bottle. He informed his pharmacist who advised him to discontinue taking it. Epigastric pain. He discontinued taking his folic acid and mycophenolate. He reports that since discontinuing these medications, he reports an improvement in his abdominal condition. Liver cirrhosis. He was previously taking Bactrim with mycophenolate. He queries the reason for his mycophenolate medication. He is aware that the medication was an immunosuppressant. He has attempted to schedule an appointment with Dr. Evans to inquire about it; however, he has not had an opportunity to discuss it. He has previously undergone banding procedure performed by Dr. Evans and was advised to follow up in 6 months. He reports occasional vomiting with mycophenolate, and reports improvement after discontinuing it. He queries about the indication of thiamine. Leg pain. He reports intermittent leg pain, which he manages with oxycodone. He typically takes 0.25 tablet of the 5 mg tablet as needed and has approximately 2 tablets remaining. He abstained from taking this medication for a period of 2 weeks. He took a 0.25 tablet on 01/24/2024 before working on his roof, and another 0.25 tablet on 01/25/2024. Additional information. He has currently not taken his potassium chloride. His current medication regimen include: Lasix. Lactulose. Zofran. Multivitamin. Review of Systems PHQ Score Initial Depression Screen Score: 0 SCORE The pertinent positive and negative findings are as noted in the HPI. Physical Exam Vitals & Measurements T: 36.5 ?C(Temporal Artery) HR: 72(Peripheral) RR: 14 BP: 130/62 SpO2: 99% HT: 67 in HT: 170 cm WT: 74.6 kg WT: 164.12 lb BMI: 25.81 General: Younger, leblanc skin male, well appearing, in no distress, evaluated in room 6. Skin: warm, dry, intact Head: no trauma, normocephalic Neck: Trachea midline, no adenopathy, no tenderness Eye: normal conjunctiva, _PERRLA, He does have some jaundice noted to the sclera of his eyes. Cardiovascular: regular rate and rhythm, normal peripheral perfusion, noedema Respiratory: Lungs CTA, respirations non labored Chest wall: no deformity, nontender Gastrointestinal: soft, non distended, no tenderness, no guarding. Back: No tenderness, Normal ROM, Normal alignment. Extremities: no deformity, no trauma. His lower extremities have compression stockings in place with no notable edema or open wounds present. Neurological (more content not included)... [facility] Comment on above: Result Comment: Elec tronically Signed By: Loreta Padilla\.br\Date and Time Signed: 01/29/24 04:45 EDT\.br\Electronically Co-Signed By: Monie Parks\.br\Date and Time Co-Signed: 01/27/24 14:24 EDT Ambulatory Visit Summaryon 0 01-27-2024 Ambulatory Visit Summary NOREEN RALPHZAHIDA Friedman :1985 Visit Date:01/27/2024 Ambulatory Visit Instructions Your Diagnosis Alcohol use disorder in remission Epigastric pain HTN (hypertension) Liver cirrhosis, alcoholic Thrombocytopenia Varicose veins of legs Dependent edema Cholelithiases Iron deficiency anemia Adult BMI 25.0-25.9 kg/sq m Leg pain Overweight Peripheral vascular disease Your Care Team Attending Physician - Loreta Padilla Primary Care Physician - Loreta Padilla This Is Your Medications List oxycodone (oxyCODONE 5 mg Tab) Contact prescribing physician if questions or concerns Misc Prescription (BP cuff device and appropriate size please) Misc Prescription (Misc DME Prescription) Misc Prescription (Misc DME Prescription) Misc Prescription (Misc DME Prescription) cholecalciferol (cholecalciferol 50,000 intl units oral capsule) furosemide (furosemide 20 mg Tab) lactulose (lactulose 10 g/15 mL Oral Syrup) multivitamin (Tab-A-Scott oral tablet) naloxone (Narcan 4 mg/0.1 mL nasal spray) ondansetron (Zofran ODT 4 mg Tab) potassium chloride (Potassium Chloride (Hgk-Ditj-Hmz M20) 20 mEq oral tablet, extended release) spironolactone (spironolactone 50 mg Tab) sulfamethoxazole-trimet hoprim (Bactrim) [Image Removed: STOP]Stop taking these medications folic acid (folic acid 1 mg Tab) Procedures Performed EGD - esophagogastroduodenosc opy (11/11/2023), Esophagogastroduodenosc opy (09/30/2023), I and D, Jaw. Discharge Vitals Temperature (Temporal Artery) 36.5 ?C Heart Rate (Peripheral) 72 Respiratory Rate 14 Blood Pressure 130/62 Height 170 cm Height 67 in Weight 74.6 kg Weight 164.12 lb BMI 25.81 What to do next Scheduled Follow-Up Appointments Thursday 8:15 AM EDT With: Barby MULTANI, Ig[place] Mary Where: [facility] 2023 3:15 PM EDT With: Mario Evans MD Where: [facility] Patient Educationon 01-27-20 Patient Education Cardiovascular Peripheral Vascular Disease Peripheral vascular disease (PVD) [...] ischemia. Other common causes of PVD include: ? Blood clots that form inside the blood vessels. ? Injuries to blood vessels. ? Diseases that cause inflammation of blood vessels or cause blood vessel tightening (spasms). What increases the risk? The following factors may make you more likely to develop this condition: ? A family history of PVD. ? Common medical conditions, including: ? High cholesterol. ? Diabetes. ? High blood pressure (hypertension). ? Heart disease. ? Known atherosclerotic disease in another area of the body. ? Past injury, such as amezquita or a broken bone. ? Other medical conditions, such as: ? Buerger's disease. This is caused by inflamed blood vessels in your hands and feet. ? Some forms of arthritis. ? defects that affect the arteries in your legs. ? Kidney disease. ? Using tobacco and nicotine products. ? Not getting enough exercise. ? Obesity. ? Being age 65 or older, or being age 50 or older and having the other risk factors. What are the signs or symptoms? This condition may cause different symptoms. Your symptoms depend on what body part is not getting enough blood. Common signs and symptoms include: ? Cramps in your buttocks, legs, and feet. ? Intermittent claudication. This is pain and weakness in your legs during activity that resolves with rest. ? Leg pain at rest and leg numbness, tingling, or weakness. ? Coldness in a leg or foot, especially when compared to the other leg or foot. ? Skin or hair changes. These can include: ? Hair loss. ? Shiny skin. ? Pale or bluish skin. ? Thick toenails. ? Inability to get or maintain an erection (erectile dysfunction). ? Tiredness (fatigue). ? Weak pulse or no pulse in the [...] tests to find the cause. Tests include: ? Ankle-brachial index test.This test compares the blood pressure readings of the legs and arms. ? This may also include an exercise ankle-brachial index test in which you walk on a treadmill to check your symptoms. ? Doppler ultrasound. This takes pictures of blood flow through your blood vessels. ? Imaging studies that use dye to show blood flow. These are: ? CT angiogram. ? Magnetic resonance angiogram, or MRA. How is this treated? Treatment for PVD depends on the cause of your condition, how severe your symptoms are, and your age. Underlying causes need to be treated and controlled. These include long-term (chronic) conditions, such as diabetes, high cholesterol, and hypertension. Treatment may include: ? Lifestyle changes, such as: ? Quitting tobacco use. ? Exercising regularly. ? Following a low-fat, low-cholesterol diet. ? Not drinking alcohol. ? Taking medicines, such as: ? Blood thinners to prevent blood clots. ? Medicines to improve blood flow. ? Medicines to improve cholesterol levels. ? Procedures, such as: ? Angioplasty. This uses an inflated balloon to open a blocked artery and improve blood flow. ? Stent implant. This inserts a small mesh tube to keep a blocked artery open. ? Peripheral bypass surgery. This reroutes blood flow around a blocked artery. ? Surgery to remove tissue from an infected wound (debridement). ? Amputation. This is surgical removal of the affected limb. It may be necessary in cases of acute limb ischemia when medical or surgical treatments have not helped. Follow these instructions at home: Medicines ? Take clhn-msq-vsuhgpd and prescription medicines only as told by your health care provider. ? If you are taking blood thinners: ? Talk with your health care provider before you take any medicines that contain aspirin or NSAIDs, such as ibuprofen. These medicines (more content not included)... [facility] Telephone Encounteron 2023 Residential Care Officer Authentication Interface Message Text Pharmacy is attempting to schedule an appointment for this patient. Per protocol, we will make 1 attempt to contact patient before routing to nurse for follow up. Medication request adjusted to only a 3 month supply to allow time for appointment to be scheduled. Thank you. Normal [facility] [employer] [facility] Physician Referralon 024 Physician Referral [id number] IFF [facility] US Abdomen, Limitedon 2023 US Abdomen, Limited Exam Date/Time: 12/31/2023 08:34 EDT Reason for Exam: R10.13;Hepatitis Report IMPRESSION: Cirrhotic liver morphology without focal hepatic lesion. Cholelithiasis with diffuse wall thickening, grossly unchanged. EXAMINATION: US Abdomen, Limited HISTORY: Hepatitis, R10.13. TECHNIQUE: Sonography of the right upper quadrant was performed. Images were obtained and stored in a permanent archive. Unless otherwise stated, incidental findings identified in this report do not require routine follow-up imaging.\X09\ COMPARISON: CT 12/11/2023. RESULT: Moderate limitations from bowel gas. Pancreas: Not visualized. Liver: Cirrhotic liver morphology. No focal lesion sonographically. Gallbladder: Cholelithiasis with diffuse wall thickening, nonspecific, but chronic and unchanged from 12/11/2023. Biliary Ducts: No intrahepatic or extrahepatic bile duct dilation. CBD measures 0.6 cm. Right Kidney: Not visualized. Ascites: None. Ordering Provider: Loreta Cummings FINAL REPORT Dictated: 01/02/2024 1:48 pm Camacho Almeida MD Signed (Electronic Signature): 01/02/2024 1:48 pm Signed by: Camacho Almeida MD Transcribed by: 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 [facility] Consent for Treatmenton 12-07 Consent for Treatment [id number] IFF [facility] Physician Referralon 024 Physician Referral [id number]#1.00T IFF [facility] CNOVon 12-30-2023 CNOV Office Visit (GENSME ) RAMOWILL ([id number]) 1985 M Date Time Provider Department 12/30/23 [...] with abdominal pain and abnormal labs from [facility]. These values are visible in Care Everywhere. [...] the option of seeing HPB surgery at [facility] as this would be the best option [...] gallstones. Blood work was also performed through [facility] along with the CT scan. His liver function tests were elevated along with his INR and bilirubin aware of his baseline laboratory values. He does see a truck service technician and is being treated for liver failure. [...] naloxone 4 mg/actuation nasal spray (NARCAN) 1 [place] by nasal (alternating) route. oxyCODONE ir (OXYIR) 5 mg capsule Take 5 mg by mouth every 6 hours as needed. potassium chloride ER (KLOR-CON) 20 mEq tablet Take 1 tablet by mouth once daily. spironolactone (ALDACTONE) 50 mg tablet Take 50 mg by mouth. sulfamethoxazole-trimet hoprim (BACTRIM DS) 800-160 mg per tablet Take [...] Visit Diagnosis:Gallstones [K80.20] Order(s):CONSULT TO LIVER/PANCREAS CLINIC [[id number]] Order #: [id number]: 1 Prescriptions as of 12/30/2023 - CHOLECALCIFEROL, [...] - myc (more content not included)... Normal [facility] Office/Clini c Noteon 12-24-2023 Family Medicine Office/Clinic Note Chief Complaint TCM follow up. Dx Intractable pain and cirrhosis HPI Staff Reason for Visit: TCM Follow up Acute: Patient states he is having stomach issues (for the past month) and doesn't know if it is a parasite. Patient states he is having chronic headaches, fatigue, and uncontrollable gas. [place] [facility] [place] date: 12/11/2023 Discharge date: 12/13/2023 Symptoms the patient presented with: Intractable Pain and Cirrhosis History of Present Illness I have reviewed and discussed the HPI (staff) with the patient today. Information was verified and is correct. Additional information provided if needed. Will Ralph is a 38-year-old male who is here for TCM follow-up. He was recently hospitalized after having an adverse reaction and severe pain to stress dobutamine test. The patient has been having some abdominal issues for the past month. He is uncertain if there is a parasite or something. He reports uncontrollable flatulence, headache, and fatigue. Chart review: He had laboratory studies on 12/21/2023. He has elevated alkaline phosphatase, ALT and AST which is due to his chronic liver disease. He has been experiencing a lot of back pain as well. He did have some previous elevated pancreas issue, but his pancreas on the CT scan was unremarkable. The stress echocardiogram was not completed, the patient had been having intermittent chest pain and discomfort. Adverse reaction to drug and failed stress test. He reports taking Tylenol for pain control and was not given medications during his discharge. During his stress echocardiogram, he received a Definity dye intravenously while laying down. He was asked to stand on the treadmill and experienced severe pain in his lower back and hips which he has never experienced in the past. The stress test was not completed, and he was sent to the emergency room. He took deep breaths and reports he was out of control and aware of what was occurring. He denies any numbness or leg paresthesia, or urinary symptoms such as urgency. He was given fentanyl however he reports worsening pain. He reported a possibility of vomiting if he was given morphine. He noted improvement in pain. 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 Cholelithiasis and epigastric pain. He reported abdominal pain and was advised it was due to the analgesic. He was given medications. He underwent a CT scan and was given steroids for renal protection. He denies any renal damage. He was discharged from the emergency room on a Thursday. He was off work for 3 days, he walked around and picked up sticks. He decided to continue the same diet for 4 continuous days thinking there was something wrong, however he reports no changes. He reports adhering to a healthy diet. He denies association of symptoms to his diet. He denies taking pancreatic enzymes. He reports decreased chest pains. He continues to take lactulose and reports he must evacuate his bowels prior to going to work or he is unable to do anything. He reports he will eat, with no bowel movements the entire day. He would eat the following night, move his bowels in the morning and lay down after taking lactulose. He goes to the bathroom 0.5 hours later, takes a shower, and eats an apple on his way to work. He usually consumes banana or grills something. He does not feel well. He vomited once due to severe due to epigastric pain. He denies lower abdominal pain. He reports abdominal sounds which he feels across his abdomen. He saw his car runner, Dr. Evans who did an endoscopy in 11/2023 and reports no ulcers were found and no intervention was recommended. He was advised to follow up in 6 months. He eats snacks frequently. He inquires if there is a medication to remove cholelithiasis. He reports intermittent epigastric pain which lasted the entire week last week. He denies eating greasy food. He weighs 70 kg. He reports eating red meat rarely and eats well. He eats a low-fat diet with small frequent meals. He hydrates well. He reports eating fruits such as bananas, apples, and sandwiches daily for lunch. He ate 5 baked chicken wings and a salad last night. He has not used a deep fryer in approximately 5 to 6 years. He took time off work today. He rates his epigastric pain a 2 out of 10 currently. He denies melena or hematochezia. He denies urinary issues. Cellulitis of the right leg. He reports improved right leg pain. He went to a vascular specialist. He reports resolution of infection. He reported not standing and working on the first 2 days stating he walks on concrete the entire day. 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 Vitamin D deficiency. He reports increased fatigue. He reports occasional headache and is able to fall asleep in 30 seconds if he lays down with reported fatigue even with mild epigastric pain. He reports feeling well 2 days out of 5 days and feels unwell for 3 days. He reports sleeping at [facility] (more content not included)... Normal [facility] Comment on above: Result Comment: Elec tronically Signed By: Loreta Padilla\.br\Date and Time Signed: 12/24/23 19:04 EDT\.br\Electronically Co-Signed By: Dagmar King\.br\Date and Time Co-Signed: 12/23/23 17:02 EDT Physician Referralon 024 Physician Referral [id number] TIFF Normal [facility] Patient Educationon 12-23-19 24 Patient Education Gastroenterology Nausea, Adult Nausea is the feeling of [...] main goals of treating your nausea are: ? To relieve your nausea. ? To limit repeated nausea episodes. ? To prevent vomiting and dehydration. Follow these instructions at home: Watch your symptoms for any changes. Tell your health care provider about them. Eating and drinking ? Take an oral rehydration solution (ORS). This is a drink that is sold at pharmacies and retail stores. ? Drink clear fluids slowly and in small amounts as you are able. Clear fluids include water, ice chips, low-calorie sports drinks, and fruit juice that has water added (diluted fruit juice). ? Eat bland, rrqv-xj-mmvslx foods in small amounts as you are able. These foods include bananas, applesauce, rice, lean meats, toast, and crackers. ? Avoid drinking fluids that contain a lot of sugar or caffeine, such as energy drinks, sports drinks, and soda. ? Avoid alcohol. ? Avoid spicy or fatty foods. General instructions ? Take hraq-ush-sasbeib and prescription medicines only as told by your health care provider. ? Rest at home while you recover. ? Drink enough fluid to keep your urine pale yellow. ? Breathe slowly and deeply when you feel nauseous. ? Avoid smelling things that have strong odors. ? Wash your hands often using soap and water for at least 20 seconds. If soap and water are not available, use hand business technology architect. ? Make sure that everyone in your household washes their hands well and often. ? Keep all follow-up visits. This is important. Contact a health care provider if: ? Your nausea gets worse. ? Your nausea does not go away after two days. ? You vomit multiple times. ? You cannot drink fluids without vomiting. ? You have any of the following: ? New symptoms. ? A fever. ? A headache. ? Muscle cramps. ? A rash. ? Pain while urinating. ? You feel light-headed or dizzy. Get help right away if: ? You have pain in your chest, neck, arm, or jaw. ? You feel extremely weak or you faint. ? You have vomit that is bright red or looks like coffee grounds. ? You have bloody or black stools (feces) or stools that look like tar. ? You have a severe headache, a stiff neck, or both. ? You have severe pain, cramping, or bloating in your abdomen. ? You have difficulty breathing or are breathing very quickly. ? Your heart is beating very quickly. ? Your skin feels cold and clammy. ? You feel confused. ? You have signs of dehydration, such as: ? Dark urine, very little urine, or no urine. ? Cracked lips. ? Dry mouth. ? Sunken eyes. ? Sleepiness. ? Weakness. These symptoms may be an emergency. Get help right away. Call 911. ? Do not wait to see if the symptoms will go away. ? Do not drive yourself to the hospital. Summary ? Nausea is the feeling that you have an upset stomach or that you are about to vomit. Nausea on its own is not usually a serious concern, but it may be an early sign of a more serious medical problem. ? If vomiting develops, or if you are not able to drink enough fluids, you are at risk of becoming dehydrated. ? Follow recommendations for eating and drinking and take yieb-ono-vpazmsl and prescription medicines only as told by your health care provider. ? Contact a health care provider right away if your symptoms worsen or you have new symptoms. ? Keep all follow-up visits. This is important. This information is not intended to replace advice given to you by your health care provider. Make sure you discuss any questions you have with your health care provider. Document Revised: 02/28/2022 Document Reviewed: 02/28/2022 [employer] Patient Education ? 2022 [employer]. Esophageal Variceal Ligation Esophageal variceal ligation (EVL) [...] the varices to cut off their blood (more content not included)... Normal [facility] .Interpretation:on 4 HCV Ab IA Ql Comment Invalid Interpretation Code [facility] Comment on above: Result Comment: Not infected with HCV unless early or acute infection is suspected (which may be delayed in an immunocompromised individual), or other evidence exists to indicate HCV infection. Performed at: Lab[address] [id number] PhD Poncho Prater Performed By: #### 2 998430, [id number], 32967494, 0552549, 7738885, 316341682, 8540765, 1029775, 16751952, 2110485, 9208028, 6587562, 7651594766, 835100193, 0802942790, 5737446 ####[facility] [address] [place] [address] Acute Hepatitis A B C Panelo n 12-22-2023 HAV IgM IA Ql Negative Invalid Interpretation Code Negative [facility] Comment on above: Performed By: #### 2 294820, 764535856, 72766439, 3381075, 1970958, 286462720, 4326637, 7092433, 86550929, 3718456, 4835363, 9154643, 3148444222, 337745583, 3068326271, 3999859 ####[facility] [address] [place] [address] HBV core IgM IA Ql Negative Invalid Interpretation Code Negative [facility] Comment on above: Performed By: #### 2 010567, 239697856, 04761321, 0340154, 0714734, 914419242, 4158798, 9146771, 00511588, 5469968, 9914784, 6016089, 3052462605, 059412604, 8610803575, 4752835 ####[facility] [address] [place] [address] HBV surface Ag IA Ql Negative Invalid Interpretation Code Negative [facility] Comment on above: Performed By: #### 2 137635, 730908172, 61237041, 3350770, 6485193, 830878673, 7867109, 0082619, 59066673, 3386480, 6090559, 4489125, 0399684693, 635470021, 7519451503, 1925595 ####[facility] [address] [place] [address] HCV IgG IA Ql Non-Reactive Invalid Interpretation Code Non Reactive [facility] Comment on above: Result Comment: [facility] [address] [place] [address] [id number] PhD Poncho Prater Performed By: #### 2 546499, 929706042, 59252159, 9900834, 2538538, 251727413, 9252108, 8032590, 43731306, 1387325, 7799472, 7924222, 5699688004, 795930203, 3746425414, 0324341 ####[facility] [address] [place] [address] HIV Screen 4th Generation wR fxon 12-22-2023 HIV 1+2 Ab+HIV1 p24 Ag IA Ql Non-Reactive Invalid Interpretation Code Non Reactive [facility] Comment on above: Result Comment: HIV Negative HIV-1/HIV-2 antibodies and HIV-1 p24 antigen were NOT detected. There is no laboratory evidence of HIV infection. Performed at: [address] [id number] PhD Poncho Prater Performed By: #### 2 146636, 959590898, 90243013, 6308557, 1613709, 481554849, 7529281, 5143369, 33376729, 7373681, 4855363, 1626171, 9641832609, 305650549, 2332242056, 8604669 ####[address] [place] [address] Ammoniaon 12-21-2023 Ammonia (P) [Moles/Vol] 46 mcmol High 11-35 [facility] Comment on above: Performed By: #### 2 893512, 1219399, 1643799, 6975736, 5571338, 02244593, 0705611, 3376353 ####[facility] [address] [place] [address] Bili Directon 12-21-2023 Bilirubin.direct [Mass/Vol] 1.6 mg/dL High 0.0-0.4 [facility] Comment on above: Order Comment: Order Added by Discern Expert. Performed By: #### 2 386552, 4461172, 5511111, 0042275, 0750369, 97633385, 2790729, 1507291 ####Paulino [address] [address] CBC w/ Auto Diffon 4 Basophils/100 WBC (Bld) 0.5 % Normal 0.0-2.0 [facility] Comment on above: Performed By: #### 2 056562, 0438775, 1445422, 7576766, 7251024, 66307817, 1334090, 1888625 ####[address] [address] Basophils/Leukocytes Auto (Bld) [Pure # fraction] 0.0 E9/L Normal 0.0-0.2 [facility] Comment on above: Performed By: #### 2 123391, 5946064, 4132420, 7442287, 9654303, 12418836, 1575208, 5711206 ####[address] [address] Eosinophils (Bld) [#/Vol] 0.1 E9/L Normal 0.0-0.5 [facility] Comment on above: Performed By: #### 2 445795, 2549397, 5945783, 7476119, 9488535, 78475332, 0805670, 3124842 ####[address] [address] Eosinophils/100 WBC (Bld) 2.4 % Normal 0.0-8.0 [facility] Comment on above: Performed By: #### 2 232758, 1356324, 6345025, 3994938, 8162112, 81550715, 7854638, 3951828 ####[address] [address] Erythrocyte distribution width (RBC) [Ratio] 15.9 % High 10.9-14.2 [facility] Comment on above: Performed By: #### 2 838674, 6528891, 7221690, 3321719, 0103144, 42591303, 6469076, 5845405 ####[address] [address] Hematocrit (Bld) [Volume fraction] 32.3 % Low 37.7-49.0 [facility] Comment on above: Performed By: #### 2 261431, 9115218, 4449369, 8117188, 4287119, 28580047, 4439111, 2999331 ####[facility] [address] [place] [address] Hemoglobin (Bld) [Mass/Vol] 11.0 g/dL Low 13.5-17.5 [facility] Comment on above: Performed By: #### 2 923375, 0100825, 6669317, 3697154, 5496394, 55965198, 1593310, 9141647 ####[address] [place] [address] Lymphocytes (Bld) [#/Vol] 0.9 E9/L Low 1.0-4.0 [facility] Comment on above: Performed By: #### 2 856947, 5769340, 6266315, 0744620, 0675594, 50150027, 4842591, 3830404 ####[address] [address] Lymphocytes/100 WBC (Bld) 19.5 % Normal 14.0-50.0 [facility] Comment on above: Performed By: #### 2 224965, 7227628, 3855782, 0616241, 8205412, 98261389, 6129222, 3535334 ####[address] [place] [address] MCH (RBC) [Entitic mass] 36.3 pg High 27.0-34.0 [facility] Comment on above: Performed By: #### 2 491849, 4286782, 6034091, 0361395, 1093238, 40605781, 8674001, 1256046 ####[address] [address] MCHC (RBC) [Mass/Vol] 34.2 g/dL Normal 31.4-36.0 [facility] Comment on above: Performed By: #### 2 227946, 7026281, 9683624, 9849401, 3970797, 51863926, 8017630, 7303317 ####[address] [place] [address] MCV (RBC) [Entitic vol] 106.1 fL High 80.0-100.0 [facility] Comment on above: Performed By: #### 2 732000, 9717616, 7126291, 7675949, 3946220, 93839666, 9227238, 5425858 ####[address] [address] Monocytes (Bld) [#/Vol] 0.4 E9/L Normal 0.2-1.0 [facility] Comment on above: Performed By: #### 2 190255, 4825791, 9677800, 8976144, 5021600, 93307817, 8347253, 1746809 ####[address] [address] Neutrophils (Bld) [#/Vol] 3.0 E9/L Normal 2.0-7.5 [facility] Comment on above: Performed By: #### 2 131531, 3522206, 2860095, 9311065, 4969165, 41624860, 4444866, 9602363 ####[address] [address] Neutrophils/100 WBC (Bld) 68.7 % Normal 36.0-75.0 [facility] Comment on above: Performed By: #### 2 872177, 0839561, 3137777, 6998839, 0075694, 93967475, 1145843, 8548197 ####[address] [place] [address] Platelet 80.0 E9/L Low 150.0-500.0 [facility] Comment on above: Performed By: #### 2 387479, 3699526, 7494823, 4831612, 8955011, 96759279, 8627200, 5427110 ####[facility] [address] [place] [address] Platelet mean volume (Bld) [Entitic vol] 8.2 fL Normal 6.4-10.8 [facility] Comment on above: Performed By: #### 2 910719, 9610280, 0195878, 8276183, 0852793, 58389855, 7571122, 8423170 ####[facility] [address] [place] [address] RBC (Bld) [#/Vol] 3.0 E12/L Low 4.3-5.9 [facility] Comment on above: Performed By: #### 2 076200, 8151354, 6113814, 7991116, 8398282, 87306575, 8972614, 3240773 ####[facility] [address] [place] [address] WBC corrected for nucl RBC Auto (Bld) [#/Vol] 4.4 E9/L Normal 4.0-11.0 [facility] Comment on above: Performed By: #### 2 883661, 1302751, 1619548, 3591692, 8656053, 50869383, 5257402, 7378006 ####[facility] [address] [place] [address] CHEMISTRYOrdered By: SYSTEM SYSTEM on 12-21-2023 25-hydroxyvitamin [...] Calcium [Mass/Vol] 9.2 mg/dL Normal 8.9 - 11. 1 mg/dL Remisol Chem Chloride [Moles/Vol] 99 mmol/L Low 101 - 1 11 mmol/L Remisol Chem CO2 [Moles/Vol] 25 mmol/L Normal [...] ug/dL High 35 - 153 mcg/dL Gerardo paulina Chem Iron binding capacity [Mass/Vol] 288 ug/dL Normal 250 - 400 mcg/dL Remisol Chem Lipase [Catalytic activity/Vol] 19 U/L Normal 13 [...] (Bld) [Mass fraction] 4.0 % Normal <=5.9% [facility] ChemAutoSS CMPon 12-21-2023 Albumin [Mass/Vol] 3.6 g/dL Normal 3.3-5.0 [facility] Comment on above: Performed By: #### 2 678652, 6315808, 2305425, 3353665, 4879458, 91247477, 7373349, 3203416 ####[facility] [address] [place] [address] Albumin/Globulin (S) [Mass conc ratio] 1.1 Normal 1.1-2.2 [facility] Comment on above: Performed By: #### 2 058002, 5274666, 9994504, 8071309, 9498024, 44363746, 5201129, 8211792 ####[facility] [address] [place] [address] ALP [Catalytic activity/Vol] 262 Int._Unit/L High 21-98 [facility] Comment on above: Performed By: #### 2 842750, 6246714, 3136220, 6254596, 1807834, 83046793, 1993081, 5028958 ####[facility] [address] [place] [address] ALT No additional P-5'-P [Catalytic activity/Vol] 60 Int._Unit/L High 6-46 [facility] Comment on above: Performed By: #### 2 970561, 3628572, 2322749, 1930935, 3703587, 95314652, 5528150, 7777336 ####[facility] [address] [place] [address] Anion gap [Moles/Vol] 13 mmol/L Normal 6-16 [facility] Comment on above: Performed By: #### 2 444937, 1710985, 7080463, 1305716, 1353218, 77460122, 6614798, 8177199 ####[facility] [address] [place] [address] AST [Catalytic activity/Vol] 91 Int._Unit/L High 5-43 [facility] Comment on above: Performed By: #### 2 901916, 3923257, 3410972, 4145869, 4490965, 78096122, 6661596, 3591402 ####[facility] [address] [place] [address] Bilirubin [Mass/Vol] 7.8 mg/dL High 0.0-1.1 [facility] Comment on above: Performed By: #### 2 239035, 6287849, 2138102, 0083772, 9924583, 57707969, 3466015, 9104020 ####[address] [place] [address] Calcium [Mass/Vol] 9.2 mg/dL Normal 8.9-11.1 [facility] Comment on above: Performed By: #### 2 287199, 8899031, 8234148, 8412251, 0467243, 37625580, 6583468, 5214002 ####[facility] [place] [address] Chloride [Moles/Vol] 99 mmol/L Low 101-111 [facility] Comment on above: Performed By: #### 2 176993, 1031720, 2131209, 9540622, 2757388, 26986817, 1785407, 8309564 ####[facility] [address] [place] [address] CO2 [Moles/Vol] 25 mmol/L Normal 21-31 [facility] Comment on above: Performed By: #### 2 712493, 0202713, 0597761, 1513045, 5302087, 42223696, 9256848, 2050449 ####[facility] [address] [place] [address] Creatinine [Mass/Vol] 0.7 mg/dL Normal 0.5-1.3 [facility] Comment on above: Performed By: #### 2 897916, 4863593, 4406735, 3151897, 4750571, 74135346, 2434903, 9633015 ####[facility] [address] [place] [address] Globulin (S) [Mass/Vol] 3.4 g/dL Normal 1.4-4.0 [facility] Comment on above: Performed By: #### 2 650826, 7448246, 2935964, 4823073, 9368683, 36744116, 9278943, 7827031 ####[facility] [address] [place] [address] Glucose [Mass/Vol] 112 mg/dL Normal 55-199 [facility] Comment on above: Performed By: #### 2 206924, 0775026, 1115619, 3499031, 8792529, 85051007, 2785495, 5556532 ####[facility] [address] [place] [address] Potassium [Moles/Vol] 3.8 mmol/L Normal 3.5-5.3 [facility] Comment on above: Performed By: #### 2 805470, 5604927, 1998074, 3889184, 0039716, 52720096, 8101867, 3733032 ####[facility] [address] [place] [address] Protein [Mass/Vol] 7.0 g/dL Normal 6.0-7.8 [facility] Comment on above: Performed By: #### 2 114278, 1678449, 5608772, 3751316, 4832453, 52492687, 6872704, 7998946 ####[facility] [address] [place] [address] Sodium [Moles/Vol] 133 mmol/L Low 135-145 [facility] Comment on above: Performed By: #### 2 047293, 5139235, 7825992, 9697993, 5353866, 83234425, 2333919, 8226912 ####[facility] [address] [place] [address] Urea nitrogen [Mass/Vol] 8 mg/dL Normal 5-21 [facility] Comment on above: Performed By: #### 2 281650, 6850443, 7774707, 2769278, 5705389, 13635419, 2777000, 1335601 ####[facility] [address] [place] [address] Urea nitrogen/Creatinine [Mass ratio] 11 No Units Normal 10-20 [facility] Comment on above: Performed By: #### 2 408329, 8249710, 0009190, 9318021, 8321991, 92729033, 5142974, 2415363 ####[facility] [address] [place] [address] COAGULATIONOrdered By: Gideon Murillo on 12-21-2023 INR Coag (PPP) [Relative time] 1.81 {INR} Invalid Interpretation Code [facility] Auto Coag Comment on above: Interpretive Data: I NR results are specifically intended to assess patients stabilized on long-term Anticoagulation therapy suggested INR s Less Intensive Anticoagulation 2.0 3.0 Conventional Range 3.0 4.5 PT Coag (PPP) [Time] 20.4 s High 9.4 - 1 2.5 second(s) [facility] Coag Comment on above: Interpretive Data: [...] coagulation reagent and instrumentation as [facility]. Currently there are no coagulation studies available worldwide for children to 14 days, and no normal ranges. CRPon 12-21-2023 CRP [Mass/Vol] mg/L Normal <=1.9 [facility] Comment on above: Performed By: #### 2 424531, 9237718, 8770822, 5656716, 3935886, 02947016, 1384614, 7838217 ####[facility] [address] [place] [address] Consent for Treatmenton 12-06 Consent for Treatment [id number] IFF Normal [facility] Ferritinon 12-21-2023 Ferritin [Mass/Vol] 385 ng/mL High 24-336 Fishe r [facility] Comment on above: Performed By: #### 2 199828, 200349345, 44652992, 0952652, 7314547, 879190517, 8767684, 6719866, 42192442, 2126043, 2184304, 5475196, 9311440594, 890610864, 0285605536, 9945522 ####[facility] [address] [place] [address] Folateon 12-21-2023 Folate [Mass/Vol] 19.8 ng/mL Normal >=6.7 [facility] Comment on above: Performed By: #### 2 625504, 803409632, 29119251, 2254993, 8245209, 835569652, 6513555, 7089093, 28128539, 5444552, 1730840, 3363073, 5752150344, 737785589, 6410672184, 9537465 ####[facility] [address] [place] [address] GGTon 12-21-2023 Gamma glutamyl transferase [Catalytic activity/Vol] 36 Int._Unit/L Normal 6-48 [facility] Comment on above: Performed By: #### 2 653047, 107150804, 53554021, 2937552, 0449284, 262214701, 2458136, 3162605, 23940373, 1117196, 6676896, 0979262, 0938399885, 401108352, 7984479991, 6267368 ####[facility] [address] [place] [address] HEMATOLOGYOrdered By: SYSTEM SYSTEM on 12-21-2023 Basophils/100 [...] Normal 4.0 - 11.0 E9/L Remisol Heme HukL5ali 12-21-2023 HbA1c (Bld) [Mass fraction] 4.0 % Normal <=5.9 [facility] Comment on above: Performed By: #### 2 458609, 686284846, 37981799, 6186030, 7303657, 764731085, 0010513, 0880416, 94928485, 0759699, 1376292, 1695048, 1026822920, 795899462, 0465672523, 8089064 ####[facility] [address] [place] [address] Ironon 12-21-2023 Iron [Mass/Vol] 269 microgram/dL High 35-153 Fis [facility] Comment on above: Performed By: #### 2 066249, 488754799, 40406721, 4466981, 9688392, 719701058, 8161957, 4934556, 89930838, 2924440, 4345873, 3482427, 5657266000, 356542605, 1144674524, 4838474 ####[facility] [address] [place] [address] Lipase Levelon 12-21-2023 Lipase [Catalytic activity/Vol] 19 U/L Normal 13-58 [facility] Comment on above: Performed By: #### 2 894764, 3760358, 8108805, 3681239, 9515442, 86804805, 3393434, 7723950 ####[facility] [address] [place] [address] Magnesiumon 12-21-2023 Magnesium [Mass/Vol] 1.6 mg/dL Normal 1.3-2.4 [facility] Comment on above: Performed By: #### 2 358088, 615356996, 39819267, 8933062, 5208854, 296079725, 7669384, 5731320, 00363956, 0988438, 2414392, 8838510, 4258562747, 790618268, 3289406904, 7536112 ####[facility] [address] [place] [address] PTon 12-21-2023 INR Coag (PPP) [Relative time] 1.81 {INR} Invalid Interpretation Code [facility] Comment on above: Result Comment: INR results are specifically intended to assess patients stabilized on long-term Anticoagulation therapy suggested INR?s ?Less Intensive Anticoagulation? 2.0 ? 3.0 Conventional Range 3.0 ? 4.5 Performed By: #### 2 097051, 6935167, 3285415, 0604395, 0393110, 55931134, 6392794, 8686849 ####[facility] [address] [place] [address] PT Coag (PPP) [Time] 20.4 second(s) High 9.4-12.5 [facility] Comment on above: Result Comment: 15 [...] coagulation reagent and instrumentation as [facility]. Currently there are no coagulation studies available worldwide for children to 14 days, and no normal ranges. Performed By: #### 2 113414, 4230812, 8008192, 6979994, 8134057, 10620358, 0249429, 9757800 ####[facility] [address] [place] [address] Phosphoruson 12-21-2023 Phosphate [Mass/Vol] 3.6 mg/dL Normal 1.9-4.6 [facility] Comment on above: Performed By: #### 2 817436, 990734580, 80010924, 4596921, 2029821, 373542050, 1997004, 5609182, 08311957, 5359528, 3359099, 6278482, 8690847059, 965341385, 3415444874, 1013173 ####[facility] [address] [place] [address] Retic Counton 12-21-2023 Reticulocytes/100 RBC (Bld) 3.6 % High .5-2.2 [facility] Comment on above: Performed By: #### 2 728907, 801269783, 89023201, 6815074, 1199462, 125830973, 4382100, 3628022, 00204831, 4204219, 2918442, 0340597, 8212552535, 676143482, 0101132277, 3446950 ####[address] [place] [address] TIBC Calculatedon 12-21-2023 Iron binding capacity [Mass/Vol] 288 microgram/dL Normal 250-400 [facility] Comment on above: Performed By: #### 2 000029, 888247835, 27423271, 7326923, 4625326, 816303807, 1646586, 2579983, 03351365, 8978971, 5638899, 7560199, 7762624133, 159948879, 4762690921, 4912856 ####[address] [place] [address] Transferrin [Mass/Vol] 206 mg/dL Normal 200-370 [facility] Comment on above: Performed By: #### 2 490609, 548001690, 83015659, 8205408, 3051025, 695750860, 9113847, 2120052, 32794000, 2035555, 2912236, 0667522, 0930909755, 354486717, 9637364329, 1255042 ####[address] [address] TSH With T4fr Reflexon 12-20 TSH Qn 1.64 m[IU]/L Normal 0.34-5.60 [facility] Comment on above: Performed By: #### 2 241671, 993944445, 55951806, 5149562, 1886664, 227148166, 9284215, 6007860, 24896130, 3349413, 0190871, 8693604, 3423278954, 785824721, 6198195001, 3801200 ####[address] [place] [address] UA with Cult Rflxon 12-21-19 24 Bilirubin Ql (U) Negative Normal Negative [facility] Comment on above: Performed By: #### 4 [id number] ####[facility] [address] [facility] [place] [address] Clarity (U) Clear Normal Clear [facility] Comment on above: Performed By: #### 4 [id number] ####[facility] [address] [facility] [place] [address] Color (U) Yellow Normal Yellow [facility] Comment on above: Result Comment: Micr oscopic readings are only performed on those samples that meet specific criteria set forth by [facility]. Performed By: #### 4 [id number] ####[facility] [address] [place] [address] Glucose Ql (U) Negative Normal Negative [facility] Comment on above: Performed By: #### 4 [id number] ####[facility] [address] [facility] [place] [address] Hemoglobin Auto test strip (U) [Mass/Vol] Trace Abnormal Negative [facility] Comment on above: Performed By: #### 4 [id number] ####[facility] [address] [place] [address] Ketones Auto test strip Ql (U) Negative Normal Negative [facility] Comment on above: Performed By: #### 4 [id number] ####[facility] [address] [facility] [place] [address] Leukocyte esterase Auto test strip Ql (U) Negative Normal Negative [facility] Comment on above: Performed By: #### 4 [id number] ####[facility] [address] [place] [address] Nitrite Auto test strip Ql (U) Negative Normal Negative [facility] Comment on above: Performed By: #### 4 [id number] ####[facility] [address] [facility] [place] [address] pH (U) 6.5 [pH] Invalid Interpretation Code 5.0-9.0 [facility] Comment on above: Performed By: #### 4 [id number] ####[facility] [address] [place] [address] Protein Ql (U) Negative Normal Negative [facility] Comment on above: Performed By: #### 4 [id number] ####[facility] [address] [place] [address] Specific gravity (U) [Rel density] 1.009 Invalid Interpretation Code 1.005-1.030 [facility] Comment on above: Performed By: #### 4 [id number] ####[facility] [address] [place] [id number] Urobilinogen (U) [Mass/Vol] Negative Normal Negative [facility] Comment on above: Performed By: #### 4 [id number] ####[facility] [address] [place] [address] Type of Urine collection method Cysto Normal [facility] Comment on above: Performed By: #### 4 [id number] ####[facility] [address] [place] [id number] URINALYSISOrdered By: SYSTEM SYSTEM on 12-21-2023 Bilirubin Ql (U) Negative Normal Negativemg/dL [facility] Auto SS Clarity (U) Clear (12/21/23 1:21 PM) Normal Clear [facility] Auto SS Color (U) Yellow 1 (12/21/23 1:21 PM) Normal Yellow [facility] Auto SS Comment on above: Interpretive Data: M icroscopic readings are only performed on those samples that meet specific criteria set forth by [facility]. Glucose Ql (U) Negative Normal Negativemg/dL FT UA Auto SS Hemoglobin Auto test strip (U) [Mass/Vol] Trace mg/dL Invalid Interpretation Code Negativemg/dL FT UA Auto SS Ketones Auto test strip Ql (U) Negative Normal Negativemg/dL FT UA Auto SS Leukocyte esterase Auto test strip Ql (U) Negative Normal NegativeLeu/uL FT UA Auto SS Nitrite Auto test strip Ql (U) Negative Normal Negativemg/dL [facility] Auto SS pH (U) 6.5 *NA* (12/21/23 1:21 PM) Invalid Interpretation Code 5.0 - 9.0 FT UA Auto SS Protein Ql (U) Negative Normal Negativemg/dL [facility] Auto SS Specific gravity (U) [Rel density] 1.009 *NA* (12/21/23 1:21 PM) Invalid Interpretation Code 1.005 - 1.030 [facility] Auto SS Urobilinogen (U) [Mass/Vol] Negative Normal Negativemg/dL [facility] Auto SS URINALYSISOrdered By: Karina Vela on 12-21-2023 UA Spec Desc Cysto (12/21/23 1:21 PM) Normal [facility] Auto SS Uric Acidon 12-21-2023 Urate (U) [Mass/Vol] 3.8 mg/dL Normal 2.2-7.4 [facility] Comment on above: Performed By: #### 2 [id number], [id number], [id number], 3456535, 7258121, [id number], 2935176, 8697746, 48818978, 7392834, 4678647, 3208693, [id number], [id number], [id number], 1085570 ####[facility] [address] [place] [address] Vit B12on 12-21-2023 Cobalamin (Vitamin B12) [Mass/Vol] pg/mL Normal 50-1500 [facility] Comment on above: Performed By: #### 2 741775, [id number], 63718803, 0513688, 5609325, 783072397, 4850345, 6877262, 42680898, 7139488, 3660560, 2231707, [id number], 634130388, [id number], 6106075 ####[facility] [address] [place] [address] Vitamin D 25 Hydroxyon 12-20 25-hydroxyvitamin D3 [Mass/Vol] 17.7 ng/mL Low 30.0-100.0 [facility] Comment on above: Performed By: #### 2 181907, [id number], 64043015, 4859416, 0762711, 215652084, 9044162, 2544134, 07914741, 9751275, 6428620, 1117024, [id number], 726282168, [id number], 1623900 ####[facility] [address] [place] [address] eGFRon 12-21-2023 eGFR 120 mL/min/1.73 m2 Normal >=59 [facility] Comment on above: Order Comment: Order added by Discern Expert. Performed By: #### 2 356423, 8609091, 3470852, 7860992, 4266800, 23460742, 3513198, 8460785 ####[facility] [address] [place] [address] Physician Referralon 024 Physician Referral [id number] IFF Normal [facility] Discharge Instructionson Discharge Instructions [id number] Normal [facility] Inpatient Clinical Summaryon 12-14-2023 Inpatient Clinical Summary [place] [id number] Clinical Summary Person Information: Name: WILL RALPH Age: 38 Years : 1985 Sex: Male PCP: Loreta Padilla Marital Status: Single Race: White Ethnicity: Non- or Language: Nigerien Visit Id: Visit Reason: STAT TRANSPORT, ALLERGIC REACTION Speciality: Acuity: Enc Type: Observation Med Service: Medical Arrival: 12/11/2023 09:05:01 Discharge: 12/13/2023 12:15:00 Dispo Type: Home (Routine DC) Address: [address] [place] [address] [place] [id number] Provider Notes: Diagnosis: 1:Intractable pain; 2:Cirrhosis; 3:Tobacco user; 4:Megaloblastic anemia; 5:Thrombocytopenia; Intractable back pain; Medication reaction Problems Active Megaloblastic anemia Tobacco user Cirrhosis Intractable pain Nausea Headache HTN (hypertension) Portal venous hypertension Varicose veins of legs Dependent edema Esophageal varices Venous ulcer of right leg Abscess of left leg excluding foot Liver cirrhosis, alcoholic Alcohol use disorder in remission Elevated blood pressure reading Cellulitis of leg, right Anemia Elevated fasting glucose Hypokalemia Smokeless tobacco use Elevated INR Thrombocytopenia Elevated liver enzymes Smoking Status: Former Smoker Functional Status: Sensory Deficits: History of Falls: Mobility Assistance Prior to Admission: Independent ADLs: Independent Current Level of Assistance for Self-Care/Mobility: Cognitive Status: Oriented x 3 Allergies penicillin (unknown) amoxicillin (Unknown) Definity (Back Pain) Measurements: Height: 170.18 cm Weight: 73.2 kg Blood Pressure: 128 mmHg / 75 mmHg BMI: 23.82 kg/m2 Procedures No Procedures Documented Immunizations No Immunizations Documented This Visit Final Med List: folic acid (folic acid 1 mg Tab) 1 Tablets By Mouth every day. furosemide (furosemide 20 mg Tab) 1 Tablets By Mouth every day. lactulose (lactulose 10 g/15 mL Oral Syrup) 30 Milliliter By Mouth 4 times a day. Refills: 1. lidocaine topical (lidocaine Top 5% film Patch) 1 Patches Topical every day. apply 12 hours on and 12 hours off daily remove patches after 12 hours may substitute for 4 % patches if insurance coverage issue. Refills: 0. Misc Prescription (BP cuff device and appropriate size please) BP Device/ machine and cuff (size appropriate). Refills: 0. Misc Prescription (Misc DME Prescription) Reading SAP Dressing 4 x 4 dressing. Misc Prescription (Misc DME Prescription) LiquidIV hydration. Misc Prescription (Misc DME Prescription) Muscle & joint balm CBD 880mg. multivitamin (Tab-A-Scott oral tablet) 1 Tablets By Mouth every day. mycophenolate mofetil (mycophenolate mofetil 500 mg oral tablet) 1 Tablets By Mouth 2 times a day. naloxone (Narcan 4 mg/0.1 mL nasal spray) 4 Milligram Nasal Inhalation As Directed. for suspected overdose symptoms. Refills: 0. ondansetron (Zofran ODT 4 mg Tab) 1 Tablets By Mouth 3 times a day as needed Nausea. Refills: 0. oxycodone (oxyCODONE 5 mg Tab) 0.5 tab By Mouth every 6 hours as needed for pain. for leg pain. Refills: 0. potassium chloride (Potassium Chloride (Mdf-Vszj-Irm M20) 20 mEq oral tablet, extended release) 1 Tablets By Mouth 2 times a day. Refills: 3. spironolactone (spironolactone 50 mg Tab) 1 Tablets By Mouth every day. sulfamethoxazole-trimet hoprim (Bactrim) By Mouth. taskes 3 times a week. Care Team Members: Attending Physician: Desi Mena MD Consulting Physician: Referring Physician: Follow up: With: Address: When: Loreta Cummings [address], [address], [email or web address] [address] Business (1) Type Location Start Finish State Open [facility] 01/27/2024 9:40 AM 01/27/2024 10:00 AM Confirmed BADH Follow Up [facility] 05/12/2024 3:15 PM 05/12/2024 3:30 PM Confirmed Patient Education Information: Drug Allergy, Irwt-to-Bewx; Chronic Back Pain; Cirrhosis Normal [facility] Inpatient Patient Summaryon 12-14-2023 Inpatient Patient Summary [address] [address] Patient Discharge Instructions PERSON INFORMATION Name: WILL RALPH Date of : 1985 Current Date: 12/14/2023 08:58:59 PHYSICIANS Admitting Physician: Desi Mena MD Primary Care Physician: Loreta Padilla PCP Comment: Discharge Diagnosis: 1:Intractable pain; 2:Cirrhosis; 3:Tobacco user; 4:Megaloblastic anemia; 5:Thrombocytopenia; Intractable back pain; Medication reaction Condition at Discharge: Stable WILL RALPH has been given the following list of follow-up instructions, prescriptions, and patient education materials: PATIENT FOLLOW-UP INFORMATION Diet: Discharge Activity: Discharge Restrictions: Wound Care Instructions: Remove Your Dressing In Days Call Your Doctor For: IF UNABLE TO CONTACT YOUR PHYSICIAN AND YOU FEEL IT IS AN EMERGENCY, GO TO THE NEAREST EMERGENCY ROOM OR CALL 911 Home Treatment: Devices/Equipment: None Special Services: Additional Instructions: Primary Care Physician to provide the following pending test results: None Follow up: With: Address: When: Loreta Cummings [address], [address], Med [address] [address] Business (1) In the event that this physician does not participate in your insurance network, please consult with your insurance company to find a nearby participating provider. Type Location Start Finish State FM Open [facility] [place] 01/27/2024 9:40 AM 01/27/2024 10:00 AM Confirmed BADH Follow Up [facility] 05/12/2024 3:15 PM 05/12/2024 3:30 PM Confirmed Comment: RAMO Montano AMOS J, have received the attached patient education materials/instructions and have verbalized understanding: Patient Signature Date Clinican/Nurse Signature _ Date HERE ARE THE MEDICATION CHANGES THAT OCCURRED DURING YOUR HOSPITAL STAY Medications to Continue with No Changes Other Medications folic acid (folic acid 1 mg Tab) 1 Tablets By Mouth every day. Last Dose: __Next Dose: __ furosemide (furosemide 20 mg Tab) 1 Tablets By Mouth every day. Last Dose: __Next Dose: __ lactulose (lactulose 10 g/15 mL Oral Syrup) 30 Milliliter By Mouth 4 times a day. Refills: 1. Last Dose: __Next Dose: __ lidocaine topical (lidocaine Top 5% film Patch) 1 Patches Topical every day. apply 12 hours on and 12 hours off daily remove patches after 12 hours may substitute for 4 % patches if insurance coverage issue. Refills: 0. Last Dose: __Next Dose: __ Misc Prescription (BP cuff device and appropriate size please) BP Device/ machine and cuff (size appropriate). Refills: 0. Last Dose: __Next Dose: __ Misc Prescription (Misc DME Prescription) Reading SAP Dressing 4 x 4 dressing. Last Dose: __Next Dose: __ Misc Prescription (Misc DME Prescription) LiquidIV hydration. Last Dose: __Next Dose: __ Misc Prescription (Misc DME Prescription) Muscle & joint balm CBD 880mg. Last Dose: __Next Dose: __ multivitamin (Tab-A-Scott oral tablet) 1 Tablets By Mouth every day. Last Dose: __Next Dose: __ mycophenolate mofetil (mycophenolate mofetil 500 mg oral tablet) 1 Tablets By Mouth 2 times a day. Last Dose: __Next Dose: __ naloxone (Narcan 4 mg/0.1 mL nasal spray) 4 Milligram Nasal Inhalation As Directed. for suspected overdose symptoms. Refills: 0. Last Dose: __Next Dose: __ ondansetron (Zofran ODT 4 mg Tab) 1 Tablets By Mouth 3 times a day as needed Nausea. Refills: 0. Last Dose: __Next Dose: __ oxycodone (oxyCODONE 5 mg Tab) 0.5 tab By Mouth every 6 hours as needed for pain. for leg pain. Refills: 0. Last Dose: __Next Dose: __ potassium chloride (Potassium Chloride (Any-Drxa-Rho M20) 20 mEq oral tablet, extended release) 1 Tablets By Mouth 2 times a day. Refills: 3. Last Dose: __Next Dose: __ spironolactone (spironolactone 50 mg Tab) 1 Tablets By Mouth every day. Last Dose: __Next Dose: __ sulfamethoxazole-trimet hoprim (Bactrim) By Mouth. taskes 3 times a week. Last Dose: __Next Dose: __ Comment: MEDICATION LIST PROVIDED FOR YOU IS A LIST OF YOUR CURRENT MEDICATIONS. PLEASE CARRY THIS WITH YOU AT ALL TIMES. folic acid (folic acid 1 mg Tab) 1 Tablets By Mouth every day. furosemide (furosemide 20 mg Tab) 1 Tablets By Mout (more content not included)... Normal [facility] Population [facility] 12-14-19 Population Health Case Information Case Priority: None Programs: Transition Care Management Referral Source: System Identified Referral Reason: System identified Case Type: Transition Care Management Risk Score: 5.03 Case Status: Enrolled (December 14, 2023) Date Assigned: December 14, 2023 Assigned By: Shannon Benites RN Date Enrolled: December 14, 2023 Assigned Primary Personnel: Shannon Benites RN Assigned Secondary Personnel: Nasrin Greene RN Case Physician: John ALBERTS, Loreta Zuniga Problems Ongoing Abscess of left leg excluding foot Alcohol use disorder in remission Anemia Cellulitis of leg, right Cirrhosis Dependent edema Elevated blood pressure reading Elevated fasting glucose Elevated INR Elevated liver enzymes Esophageal varices Headache HTN (hypertension) Hypokalemia Intractable pain Liver cirrhosis, alcoholic Megaloblastic anemia Nausea Portal venous hypertension Smokeless tobacco use Thrombocytopenia Tobacco user Varicose veins of legs Venous ulcer of right leg Historical Denies Heavy alcohol use Procedure/Surgical History EGD - esophagogastroduodenosc opy (11/11/2023), Esophagogastroduodenosc opy (09/30/2023), I and D, Jaw. Home Medications Bactrim, Oral BP cuff device and appropriate size please, See Instructions folic acid 1 mg Tab, 1 mg= 1 tab(s), Oral, Daily furosemide 20 mg Tab, 20 mg= 1 tab(s), Oral, Daily lactulose 10 g/15 mL Oral Syrup, 20 gm= 30 mL, Oral, QID, 1 refills lidocaine Top 5% film Patch, 1 patch(es), Topical, Daily, Not taking Misc DME Prescription, See Instructions, Not taking Misc DME Prescription, See Instructions, Not taking Misc DME Prescription, See Instructions mycophenolate mofetil 500 mg oral tablet, 500 mg= 1 tab(s), Oral, BID Narcan 4 mg/0.1 mL nasal spray, 4 mg, Nasal, As Directed, Not taking oxyCODONE 5 mg Tab, 0.5 tab, Oral, q6hr, PRN, Not taking Potassium Chloride (Pcp-Kkdt-Ddm M20) 20 mEq oral tablet, extended release, 20 mEq= 1 tab(s), Oral, BID, 3 refills, Not taking spironolactone 50 mg Tab, 50 mg= 1 tab(s), Oral, Daily Tab-A-Scott oral tablet, 1 tab(s), Oral, Daily Zofran ODT 4 mg Tab, 4 mg= 1 tab(s), Oral, TID, PRN Allergies Definity (Back Pain) amoxicillin (Unknown) penicillin (unknown) Social History Alcohol Past, 09/01/2023 Current, Beer, Daily, 09/01/2023 Current, 3-5 times per week, 08/09/2020 Current, Beer, 3-5 times per week, 07/28/2020 Substance Abuse Tobacco Former smoker, quit more than 30 days ago Tobacco Use:. Smokeless tobacco user within last 30 days Smokeless Tobacco Use:. Oral, Yes, 10/28/2023 Family History Diabetes mellitus type 2: Father. Screenings and Assessments 12/14/23 11:04:00 Result Name Value Comment Phone Call Monitoring Consent Agreed to continue call Phone Verification Patient Information Full name, street address and date of verified CM Program Enrollment Provides verbal consent for enrollment Goals and Interventions Care Plan Progress Note Admit Date: 12/11/2023 Date of Discharge: 12/13/2023 Follow-up appointment scheduled? Yes TCM PCP OV with Julieta Cummings on 12/22 @ 10:00 Did you understand your discharge instructions? Yes Are you able to follow them? Yes Did you receive new medications? No Have you filled the Rx's? N/A Are you taking them as prescribed? N/A Are you having difficulty eating or swallowing your pills? No Are you having any stomach upset, diarrhea or constipation? Was constipated but had a BM this morning How are you sleeping? Okay Are you having any pain? Yes, lower back/hip pain Do you have everything you need at home to care for yourself? Yes Do you have Home Health? No TCM #1 - Spoke with patient for initial call for the Transitional Care Management program. Patient is a low readmission risk. Reviewed d/c instructions along with dx of intractable pain, cirrhosis, tobacco user, megaloblastic anemia, thrombocytopenia, intractable back pain, medication reaction. Medications reconciled with patient, EHR, and d/c list. Patient is doing okay but feels sluggish. Remains with lower back/hip pain. He is not taking anything for the pain. He is walking without difficulty. Patient is eating and drinking well. Denies abdominal pain. He was constipated but finally had a BM this morning. He complains of painful urination. Denies fevers, N/V, or hematuria. Denies chest pain. He gets short of breath with exertion. He was unable to complete his stress test d/t having a reaction to the Definity. He questions what he should do next. Message sent to PCP about his back pain, painful urination, and next step d/t being unable to complete his stress test. Patient has a TCM OV with PCP Julieta Cummings on 12/22 @ 10:00. Explained the TCM program and provided CN's information. Patient denies further questions/concerns. Communication Events Date: December 14, 2023 Method: Phone call Type: Outbound Duration (more content not included)... Normal [facility] BMPon 12-13-2023 Anion gap [Moles/Vol] 8 mmol/L Normal -16 [facility] Comment on above: Performed By: #### 2 [id number], [id number] ####[facility] [address] [place] [address] Calcium [Mass/Vol] 8.0 mg/dL Low 8.9-11.1 [facility] Comment on above: Performed By: #### 2 [id number], [id number] ####[facility] [address] [place] [address] Chloride [Moles/Vol] 105 mmol/L Normal 101-111 [facility] Comment on above: Performed By: #### 2 115588, [id number] ####[facility] [address] [place] [address] CO2 [Moles/Vol] 26 mmol/L Normal 21-31 [facility] Comment on above: Performed By: #### 2 543458, [id number] ####[facility] [address] [place] [address] Creatinine [Mass/Vol] 0.5 mg/dL Normal 0.5-1.3 [facility] Comment on above: Performed By: #### 2 018925, [id number] ####[facility] [address] [place] [address] Glucose [Mass/Vol] 97 mg/dL Normal 55-199 [facility] Comment on above: Performed By: #### 2 998232, [id number] ####[facility] [address] [place] [address] Potassium [Moles/Vol] 4.5 mmol/L Normal 3.5-5.3 [facility] Comment on above: Performed By: #### 2 794143, [id number] ####[facility] [address] [place] [address] Sodium [Moles/Vol] 134 mmol/L Low 135-145 [facility] Comment on above: Performed By: #### 2 249605, [id number] ####[facility] [address] [place] [address] Urea nitrogen [Mass/Vol] 9 mg/dL Normal 5-21 [facility] Comment on above: Performed By: #### 2 942067, [id number] ####[facility] [address] [place] [address] Urea nitrogen/Creatinine [Mass ratio] 18 No Units Normal 10-20 [facility] Comment on above: Performed By: #### 2 709144, [id number] ####[facility] [address] [place] [address] CHEMISTRYOrdered By: SYSTEM SYSTEM on 12-13-2023 Anion gap [Moles/Vol] 8 mmol/L Normal 6 - 16 mEq/L Remisol Chem Calcium [Mass/Vol] 8.0 mg/dL Low 8.9 - 11. 1 mg/dL Rem[facility] Chem Chloride [Moles/Vol] 105 mmol/L Normal 101 - 1 11 mmol/L Remisol Chem CO2 [Moles/Vol] 26 mmol/L Normal [...] 20 Remisol Chem Discharge Note-Nursingon Discharge Note-Nursing WILL RALPH :1985 Visit Date:12/11/2023 Inpatient Discharge Instructions Your Care Team Admitting Physician - Rajesh MULTANI, Desi Reason for Your Visit ALLERGIC REACTION Your Diagnosis Intractable pain Cirrhosis Tobacco user Megaloblastic anemia Thrombocytopenia Intractable back pain Medication reaction Tests Performed CT Abdomen/Pelvis w/o Contrast This Is Your Medications List Misc Prescription (BP cuff device and appropriate size please) Misc Prescription (Misc DME Prescription) Misc Prescription (Misc DME Prescription) Misc Prescription (Misc DME Prescription) folic acid (folic acid 1 mg Tab) furosemide (furosemide 20 mg Tab) lactulose (lactulose 10 g/15 mL Oral Syrup) lidocaine topical (lidocaine Top 5% film Patch) multivitamin (Tab-A-Scott oral tablet) mycophenolate mofetil (mycophenolate mofetil 500 mg oral tablet) naloxone (Narcan 4 mg/0.1 mL nasal spray) ondansetron (Zofran ODT 4 mg Tab) oxycodone (oxyCODONE 5 mg Tab) potassium chloride (Potassium Chloride (Jil-Lbdn-Usu M20) 20 mEq oral tablet, extended release) spironolactone (spironolactone 50 mg Tab) sulfamethoxazole-trimet hoprim (Bactrim) Procedure History EGD - esophagogastroduodenosc opy (11/11/2023), Esophagogastroduodenosc opy (09/30/2023), I and D, Jaw. Discharge Vitals Temperature (Axillary) 37.2 ?C Heart Rate (Monitored) 87 Blood Pressure 119/68 Weight 73.2 kg What to do next Instructions From Your Doctor Event Name Event Result Pending Diagnostic Test Results None Pharmacy Information [facility] Previously Scheduled Follow-Up Appointments Thursday. 2023 9:40 AM EDT With: John ALBERTS, Loreta Zuniga Where: [facility] Normal [address] [place] [address]- \.br\ New Follow Up Appointments after Discharge\.br \ Follow Up with Loreta Cummings When: In 0 days\.br\ Where:\.br\ [address]\ [address]\.br\ [place] [address]-\.br\ Business (1)\.br\ Medications\.br \ What How Much When Why Instructions Next [...] Misc Prescription (Misc DME Prescription) See instructions Reading SAP Dressing 4 x 4 dressing \.br\ [...] @ 12pm\.br\ Unchanged potassium chloride (Potassium Chloride (Xsj-Tlfy-Zvj M20) 20 mEq oral tablet, extended release) 1 Tablets By Mouth 2 times a day 12/13/2023 @ 9pm\.br\ Unchanged spironolactone (spironolactone 50 mg Tab) 1 Tablets By Mouth Every day 12/14/2023 @ 9am\.br\ Unchanged sulfamethoxazol e-trimethoprim (Bactrim) By Mouth taskes 3 times a week resume home dose schedule\.br\ Test Results\.br\ CBC \.br\ BMP \.br\ WBC: 5.3 E9/L (12/11/23 09:31:00)\.br\ Glucose Lvl: 97 mg/dL (12/13/23 07:28:00)\.br\ RBC: 3.1 E12/L Low (12/11/23 09:31:00)\.br\ BUN: 9 mg/dL (12/13/23 07:28:00)\.br\ HGB: 11.3 gm/dL Low (12/11/23 09:31:00)\.br\ Creatinine: 0.5 mg/dL (12/13/23 07:28:00)\.br\ Hct: 32.9 % Low (12/11/23 09:31:00)\.br\ BUN/Creat Ratio: 18 (12/13/23 07:28:00)\.br\ MCV: 105.2 fL High (12/11/23 09:31:00)\.br\ Sodium Lvl: 134 mmol/L Low (12/13/23 07:28:00)\.br\ MCH: 36.2 pg High (12/11/23 09:31:00)\.br\ Potassium Lvl: 4.5 mmol/L (12/13/23 07:28:00)\.br\ MCHC: 34.4 gm/dL (12/11/23 09:31:00)\.br\ Chloride: 105 mmol/L (12/13/23 07:28:00)\.br\ RDW: 15.9 % High (12/11/23 09:31:00)\.br\ CO2: 26 mmol/L (12/13/23 07:28:00)\.br\ Platelet: 71 E9/L Low (12/11/23:31:00)\.br\ AGAP: 8 mEq/L (12/13/23 07:28:00)\.br\ MPV: 8.8 fL (12/11/23 09:31:00)\.br\ Calcium Lvl: 8 mg/dL Low (12/13/23 07:28:00)\.br\ Allergies\.br\ Definity (Back Pain)\.br\ amoxicillin (Unknown)\.br\ penicillin (unknown)\.br\ Problems\.br\ Ongoing - Any problem that you are currently receiving treatment for.\.br\ Abscess of left leg excluding foot\.br\ Alcohol use disorder in remission\.br\ Anemia\.br\ Cellulitis of leg, right\.br\ Cirrhosis\.br\ Dependent edema\.br\ Elevated blood pressure reading\.br\ Elevated fasting glucose\.br\ Elevated INR\.br\ Elevated liver enzymes\.br\ Esophageal varices\.br\ Headache\.br\ HTN (hypertension)\ .br\ Hypokalemia\.br \ Intractable pain\.br\ Liver cirrhosis, alcoholic\.br\ Megaloblastic anemia\.br\ Nausea\.br\ Portal venous hypertension\.b r\ Smokeless tobacco use\.br\ Thrombocytopeni a\.br\ Tobacco user\.br\ Varicose veins of legs\.br\ Venous ulcer of right leg\.br\ Historical - Any problem that you are no longer receiving treatment for.\.br\ Denies\.br\ Heavy alcohol use\.br\ Education Materials\.br\ Drug Allergy\.br\ A drug allergy is when your body reacts in a bad way to a medicine. The reaction may be mild or very bad. In some cases, it can be life-threatenin g.\.br\ If you have an allergic reaction, get [...] of skin.\.br\ ? \.br\ Feeling dizzy or light-headed.\. br\ ? \.br\ Feeling mixed up.\.br\ ? \.br\ Pain in your belly.\.br\ ? \.br\ Trouble with breathing, talking, or swallowing.\.br \ ? \.br\ A tight feeling in your chest.\.br\ ? \.br\ Fast heartbeat.\.br\ ? \.br\ Vomiting or watery poop (diarrhea).\.br \ How is this treated?\.br\ There is no cure for allergies. An allergic reaction can be treated with:\.br\ ? \.br\ Medicines to help your symptoms.\.br\ ? \.br\ Medicines that you breathe into your lungs (respiratory inhalers).\.br\ ? \.br\ A shot for a very bad allergic reaction (epinephrine).\ .br\ For a very bad reaction, you may [...] doctor tells you to do this.\.br\ General instructions\.b r\ ? \.br\ Avoid medicines that you are allergic to.\.br\ ? \.br\ Take qkug-gzh-fsdcii r and prescription medicines only as told by your doctor.\.br\ ? \.br\ If you were given allergy medicines, do not drive until your health care provider tells you it is safe.\.br\ ? \.br\ If you have hives or a rash:\.br\ ? \.br\ Use wnho-gnk-lipfkf r medicines as told by your doctor.\.br\ ? \.br\ Put cold, wet cloths on your skin.\.br\ ? \.br\ Take baths or showers in cool water. Avoid hot water.\.br\ ? \.br\ [facility] Monitor Recordon 12-13-2023 Monitor Record [id number]#[id number] TIFF Normal [facility] Patient Education - Texton 0 12-13-2023 Patient Education - Text Gastroenterology Cirrhosis Cirrhosis is long-term (chronic) liver [...] provider before taking any new medicines, including hizj-eax-cxkarhw medicines such as NSAIDs. ? Rest as needed. ? Eat a well-balanced diet. ? Limit your salt or water intake, if your health care provider asks you to do this. ? Do not drink alcohol. This is especially important if you routinely take acetaminophen. ? Keep all f (more content not included)... Normal [facility] eGFRon 12-13-2023 eGFR 133 mL/min/1.73 m2 Normal >=59 [facility] Comment on above: Order Comment: Order added by Discern Expert. Performed By: #### [id number] ####Paulino [facility] [address] [place] [address] CHEMISTRYOrdered By: SYSTEM SYSTEM on 12-11-2023 Anion gap [Moles/Vol] 12 mmol/L Normal 6 - 16 mEq/L [facility] Chem Calcium [Mass/Vol] 8.4 mg/dL Low 8.9 - 11. 1 mg/dL [facility] Chem Chloride [Moles/Vol] 103 mmol/L Normal 101 - 1 11 mmol/L [facility] Chem CO2 [Moles/Vol] 21 mmol/L Normal [...] Calcium [Mass/Vol] 8.8 mg/dL Low 8.9 - 11. 1 mg/dL [facility] Chem Chloride [Moles/Vol] 101 mmol/L Normal 101 - 1 11 mmol/L [facility] Chem CO2 [Moles/Vol] 21 mmol/L Normal [...] mg/mg Normal 10 - 20 [facility] Chem HEMATOLOGYOrdered By: SYSTEM SYSTEM on 12-11-2023 Basophils/100 [...] Normal 4.0 - 11.0 E9/L [facility] Heme URINALYSISOrdered By: Webflakes SYSTEM on 12-11-2023 Color (U) Yellow 1 (12/11/23 9:36 AM) Normal Yellow [facility] UA Auto SS Comment on above: Interpretive Data: M icroscopic readings are only performed on those samples that meet specific criteria set forth by [facility]. Glucose (U) [Mass/Vol] Negative Normal Negativemg/dL [facility] UA Auto SS Ketones Ql (U) Negative Normal Negativemg/dL [facility] Auto SS UA Blood Negative Normal Negativemg/dL [facility] UA Aut o SS UA Clarity Clear (12/11/23 9:36 AM) Normal Clear [facility] UA Auto SS UA Leuk Est Negative Normal NegativeLeu/uL [facility] A uto SS UA Nitrite Negative Normal Negativemg/dL [facility] UA Aut o SS UA pH 7.0 *NA* (12/11/23 9:36 AM) Invalid Interpretation Code 5.0 - 9.0 [facility] UA Auto SS UA Protein Negative Normal Negativemg/dL [facility] UA Aut o SS UA Spec Grav 1.007 *NA* (12/11/23 9:36 AM) Invalid Interpretation Code 1.005 - 1.030 [facility] UA Auto SS UA Urobilinogen 2 mg/dL mg/dL Invalid Interpretation Code Negativemg/dL [facility] UA Auto SS Urobilinogen (U) [Mass/Vol] Negative Normal Negativemg/dL [facility] UA Auto SS URINALYSISOrdered By: Brent Sanches on 12-11-2023 UA Spec Desc Clean Catch (12/11/23 9:36 AM) Normal [facility] UA Auto SS Work Phone: Progress Noteson 10-01-2023 Residential Care Officer Authentication Interface Message Text Hematology AND Oncology [...] B27 positive) 2003 Followed with Rheum at [facility] Open fracture of other and unspecified part [...] 120 min Stress: Stress Concern Present (02/27/2023) [employer] [place] [employer] - Occupational Stress Questionnaire Feeling of Stress : Very much Social Connections: Socially Isolated (02/27/2023) Social Connection and Isolation Panel [NHANES] Frequency of Communication with Friends and Family: More than three times a week Frequency of Social Gatherings with Friends and Family: Patient refused Attends Synagogue Services: Never Active Member of Clubs or [...] TO 3 BOWEL MOVEMENTS/DAY 946 mL 3 sulfamethoxazole-trimet hoprim 800-160 MG (Bactrim DS) 800-160 MG per tab (more content not included)... Normal [facility] CHEMISTRYOrdered By: Huber Jha on 07-24-2023 Albumin DL <= 20 mg/L (U) [Mass/Vol] microgram/mL Normal 0.0 - 19.0 mcg/mL [facility] Albumin Elph (U) [Mass fraction] mg/dL Invalid Interpretation Code [facility] Comment on above: Interpretive Data: T he reference range and other method performance specifications have not been established for this test; results should be integrated into the clinical context for interpretation. Creatinine (U) [Mass/Vol] 22.5 mg/dL Invalid Interpretation Code [facility] Comment on above: Interpretive Data: T he reference range and other method performance specifications have not been established for this test; results should be integrated into the clinical context for interpretation. U Prot/Creat Ratio [facility] Invalid Interpretation Code 0.00 - 200.00 [facility] 2000 panelon 04-21-2023 Anion gap [Moles/Vol] 12 mmol/L 10 - 20 [facility] Calcium [Mass/Vol] 8.6 mg/dL 8.4 - 10. 4 mg/dL [facility] Chloride [Moles/Vol] 104 mmol/L 97 - 111 mmol/L [facility] CO2 [Moles/Vol] 26 mmol/L 21 - 30 mmol/L [facility] Creatinine [Mass/Vol] 0.52 mg/dL Low 0.80 - 1.30 mg/dL [facility] G[facility]1.[facility] sq M.predicted MDRD (S/P/Bld) [Vol rate/Area] 132 mL/min/{1.73_m2} - PINF [facility] Comment on above: 2020 CKD EPI Equatio [...] Inclusion of Race in Diagnosing Kidney Disease. [place] Journal of Kidney Diseases 202;79(2):268-88.e1. 2. N Engl J Med 2020 Vol. 385 Issue 19 Pages 3921-3498 Glucose [Mass/Vol] 80 mg/dL 68 - 110 mg/dL [facility] Potassium [Moles/Vol] 4.0 mmol/L 3.3 - 5.3 mmol/L [facility] Sodium [Moles/Vol] 138 mmol/L 135 - 148 mmol/L [facility] Urea nitrogen [Mass/Vol] 7 mg/dL Low 8 - 22 mg/dL [facility] CBC WITH DIFFERENTIALOrdered By: Yany Carrera on [...] - 11.5 K/uL [facility] HAPTOGLOBINon 04-21-2023 Haptoglobin [Mass/Vol] mg/dL Low 36 - 220 mg/dL [facility] Interpretation and review of laboratory results Abnormal [facility] HEPATIC FUNCTION PANELon Albumin [Mass/Vol] 3.2 g/dL Low 3.4 - 5.1 g/dL [facility] ALP [Catalytic activity/Vol] 284 U/L High [facility] ALT [Catalytic activity/Vol] 38 U/L [facility] AST [Catalytic activity/Vol] 70 U/L High [facility] Bilirubin [Mass/Vol] 7.5 mg/dL High 0.1 - 1.5 mg/dL [facility] Bilirubin.direct [Mass/Vol] 1.89 mg/dL High 0.10 - 0.30 mg/dL [facility] Protein [Mass/Vol] 7.6 g/dL 6.2 - 8.3 g/dL [facility] LDHon 04-21-2023 LDH [Catalytic activity/Vol] 257 U/L High [facility] MANUAL DIFF AND MORPHon 04-07 Anisocytosis Ql (Bld) Slight [facility] Cells Counted Total (Bld) [#] [facility] Dacrocytes LM Ql (Bld) Few [facility] Ovalocytes LM Ql (Bld) Few [facility] Schistocytes LM Ql (Bld) Few [facility] Target cells LM Ql (Bld) Few [facility] No Panel InformationOrdered By: Yany Carrera on 04-21-2023 [facility] No Panel Informationon 04-21 Interpretation and review of laboratory results Abnormal [facility] RETICULOCYTE COUNTon 023 Immature reticulocytes/Total reticulocytes (Bld) 0.46 % 0.30 - 0.50 [facility] Interpretation and review of laboratory results Abnormal [facility] Reticulocytes (Bld) [#/Vol] 0.09 10*3/uL High [facility] Reticulocytes/100 RBC (Bld) 2.6 % High 0.5 - 1.5 % [facility] CHEMISTRYOrdered By: SYSTEM SYSTEM on 03-22-2023 Albumin [...] Calcium [Mass/Vol] 8.2 mg/dL Low 8.9 - 11. 1 mg/dL [facility] Remisol Chloride [Moles/Vol] 103 mmol/L Normal 101 - 1 11 mmol/L [facility] Remisol CO2 [Moles/Vol] 25 mmol/L Normal 21 - 31 mmol/L [facility] Remisol Creatinine [Mass/Vol] 0.6 mg/dL Normal 0.5 - 1.3 mg/dL [facility] Remisol GFR/1.73 sq M.predicted among non-blacks [...] mg/mg Normal 10 - 20 [facility] Remisol COAGULATIONOrdered By: Mayuri Russell on 03-22-2023 aPTT Coag (PPP) [Time] 42.0 s High 25.1 - 36.5 second(s) [facility] Auto Coag INR Coag (PPP) [Relative time] 2.6 {INR} Invalid Interpretation Code [facility] Auto Coag PT Coag (PPP) [Time] 30.4 s High 9.4 - 1 2.5 second(s) [facility] Auto Coag HEMATOLOGYOrdered By: SYSTEM SYSTEM on 03-22-2023 Basophils/100 WBC (Bld) 0.4 % Normal 0.0 - 2.0 % [facility] HemeAutoSS Basophils/Leukocytes Auto (Bld) [Pure # fraction] 0.0 E9/L Normal 0.0 - 0.2 E9/L [facility] HemeAutoSS Eosinophils/100 WBC (Bld) 1.3 % Normal 0.0 - 8.0 % FT HemeAutoSS Eosinophils/Leukocyt es Auto (Bld) [Pure # [...] 10.3 g/dL Low 13.5 - 17.5 gm/dL [facility] [...] 4.3 - 5.9 E12/L [facility] HemeAutoSS WBC corrected for nucl RBC Auto (Bld) [#/Vol] 10.1 E9/L Normal 4.0 - 11.0 E9/L [facility] HemeAutoSS *SPECIMEN FOR SURGICAL PATHO LOGYOrdered By: Daniella Conde on 01-27-2023 Case Report Surgical Pathology Report Case: [id number] Authorizing Provider: Erica Rock MD Collected: 01/20/2023 1009 Ordering Location: [facility] Radiology Received: 01/20/2023 7226 Pathologist: Daniella Conde MD Specimen: Liver biopsy, Transvenous biopsy nontargeted [facility] Work Phone: Clinical Information [facility] Work Phone: Final Diagnosis [id number] bGF uZzEwMzNcZnRuYmpcdWMxIH tccnRmMVxlcGljMTAzMDVcd 4rtb0hinPWkRNGjx6qcv5Qt dHBncGFyXGpleHBhbmRcbm9 5oAO1qA11DM0dRBIfPrM3MQ GtxtJ4Nsi5IKMjDZAuuRKeK 634o9utg5pfstNcnLD4TIZc BWGzI2BbNL5dFESeuVWrR27 jeODvAPW6EASxKEEsaPTeHW JbPRQ7HERrvZBcK9eaMUKjL W9vbsrpNAxgIYypCYCbqNS2 UBSrcOTxB8RyJVVxMTwoSLQ equo0ImYiXi5rkIHfaYgyMX unXDUiKN6hm1ifO8EchJViH HBsYWluXGJcZnMyMCBBLiAi XZh6FZKjTFDuYA3nnmQodZa ezpPusG4ay7xhTKNvqbrbCY buHLJxw9voM2XstBLuGGFiQ REMmHXmaX3duJOsHEVeJMVC f15wBR75OFJfAEXugDHniFA uFPF8MIqlITKdo0YwiZPxCZ FyosflWUNxCyi2fFAKg44xQ N31PoqdNAh5iGOqIUPmRQWg uOhqqO3qxZEaYjX8vXSxS5q pywyld9ozBFpjBI2gfUIows rfCR58VZfdf9RhvJ2ecDNbt Um6AUyfQGOsnFLcZCU4OC5i SMIiy8InL1EmNHYKd0scmeC yIHdpdGggdGhlIHBhdGllbn TjrzOmuCC8t3L3EYL8qWGkW xywIPxjT6DtFCBiAPPyiVMs uRljcYYxv1g7rTChkJPhzW6 wpGIcX6njqrodr2ckEjLwZ6 JnSYXlc8cxJKDxfiUuoKYky pplMILnmh09aB0hvABdrVRk OMTfj0UkxGhrPXqcfjYkDGG tacToC4w2xREuoIRrOQgfgr CqZVAkEpNuesdpJBO2t3bka GYxXHNzdGVjZjIyMDAwXGFu t4zrNXBqlOBxHxXpFqHuOyL tOjrmwGOlNMKuInCuc8tde1 78eJOnr7brBYPdFmU7sFJrM RPamWKtE552GCEaAVsxv2tg s5JuRIGaaIVqf4Q6DPAYxbt ypWw7pKdwP90sl9Y4SpygL9 vyOTMnJYQwP7JcRW5sYOYhC td9YWG2TSM8VYJuBSd3OEef VXPaWGUhVkv9OWc0WTiarlK qVTdljsGgbcZeIwo3TEGxP4 06UND2mJdem8pvZBR2SCCsH UMbGqFbTc0teRCsK259HIMr JSWSRYWicDd7FPKhnuJyerW vuWGRx410B024i0gaFJIxfw NorAmEtcvnm5uuX201QQDvm GVydzEyMjQwXHBhcGVyaDE1 TFPiLG6gidgxWHjaWXtqQEY johP4YEBkmEUsQ6SqMIQuWC 7zdlwrLKL6YMpyKXXvVHM1O qKwHOItn2Naqmr4JzAjtk7k vi05HAI2x6ZobYpmANG1PYY 3AbKnWa4waIGnBEVlBK9bUi RusZBuXIEvwu16wGfrBKbcf wWdrE9xSeFjKCRqdHOfTSSk MW9cgIOqJZAumK0glevdTVL nYnJkcmhlYWRccGdicmRyZm 2nuHnrTIS6WDweR4emyE0tY zE5LAeeQ8whaV6bASp2LPyt tWK8IKZhnX3sBJ9ftxapa3m kUWfsGVbdYUElfnZ7qyR7IJ FpcIVaT8FghK3qYAJzKP3lm shou2gcCLE5DVcwGPNoGXW6 VbVeQYBmc0Ujihm0XiLlq7A pbAHqZNqhJ71ob283LHKtbb QxN1iboNDltyfbuYDsaoltP SgmseS3NKHtQSZyJMxxJKNz XGZzMjJcbGFuZzEwMzNcaGl jaFxmMVxkYmNoXGYxXGxvY2 hcZjFcZnMyMlxwYXJccGxha K2qTlUsHeJmTUxvYP8kIBUa X0twfMKoVCHqVGUoZ4gyLoB buY3pmPfbROtqblZoBBXtBK Y1kr7jvZMofGb8COAhC19tG MNRcDOjUsecD2CpuASrGXK2 jBDiGG0TCR1eVDG0RcJgQkL wMjMuXHBhclxwYXJccGxhaW 0vGxGbGuSmJGhhQY2lQRScA 0uwlCKdXJCiBIXpU8ifUjLd jE6mbZlyKRqnGpYlJtIgEQj rJQffQ0SfnMoeoTE6mOD1LN brvVWrs95wVRiajHXne43ef SS2YSEjrLgjBCMxHYpvg9N2 aWMgZXZhbHVhdGlvbiBvZiB 9eEXrPUKnhcYyg0UdH1xeFH 4bccomSW7kGQrvcxKwtbIkE GVyZWQgdGhlIGZpbmFsIGRp ERpmy8RwmdquulrrJHrhrBD pblxmMVxmczIyXGxhbmcxMD FkVTbuV8taWfCmZDPfgKsbG Belo6GrSOTdSFRuTlSrvGDt IKNjhb05 [facility] Work Phone: Gross Description t5akbCKyNDEmfOSwHNYv Nlx qcsQrLTSmfKCcH9YvvoczSS tpGP6vAO3fiMznzMDylKMbX JWzYrVnp4cfq025iEVni6sy QBFSxgvikPc2mDvnJ16am7B 8LdlrP49hiZIwBIP4RXZqJX GrnIJxREZaCWT1PNLisNSgH 7aiCSQhWV5eqxrtWUrjUNqb JSXftBM8KSUpuVTxC1VtWHC pVKtpWTQrycs8AzXnOk2vkZ VyeTcyMFxwYXJkXHBsYWluX BMbBgQeWX2wKYMcgROmb7z5 uF4tRQNeMWOgGqxlvsDhAUI ui3JvyOQsFMVsobOZaKVau2 ZdL3wfEW9glQLemsDmOTo4W GIwGjJiu4hsfW1sCZMpmS6f oPOqH01puWQhakQxZSFlANG agXRtUNexgUbrxSP9xVUcgG lkZR9cfEUlOC4mMFruKQzgo bWsq1NhGF18cFLoecznMP6n QFT1laljS2BlKA67lRJyul4 nRIVxm7GkWJSkNBLfuHYvrt HfzR8al0jxUkHBjMDbj1MfB 5tzEY3sQ40dl0scyXFjj7Mq HrA4KX7zeeCcNCfwSFEoqmM yBtlluWMeDFVhdRQui3CeoX 1yJBFuFVDtpNKulfAmTM08M RTlIOvfCNdwvxn2nAZgpbRk dGhlIDAuMSBjbSBpbiBkaWF dWPLjja2bMDreUNVoMEBckT AvFMnzJSZ6We4mrAIzBRUeu vE7h8JkSHsaSE2cURFzWHVq KMU9JH2uEqBaZOQqttuoZKQ ys0DzbSHdwC== [facility] Work Phone: [employer] u9ogzHXlOKCpnFWdFXYg NVx nyoQdGVXmxTZtY7UnvvpbKG bxGR5nYT5zkVgzjPAbqYHuQ VKgKpLej6gtg791mCXll9xh NCCIswuowBv9bHqiT99kc9P 8ZdclA84zoRFvGHW5JGJeLK YuaREzXFKqXYM8QUOffYOqL 2glZSRlBU3asuxwAGgdJEwi BTNuwBN0UDIlyWGyU2UcZRX sDJbwFBUoabt2TvAqOf4urQ VyeTcyMFxwYXJkXHBsYWluX NFxCgQtVU4tRNrwjGHsfBFx rWA0jO9uWD0gAFYvzdocHOD gNoj0fIHFbFSjins7jTBmOt gqUKRbcBKrNISgaWDzbo2jU PkkGVEzEUlfV8xdiWxxxVYj Q9vxddhiu9lqHJVoahnkPGX VEp7KHzZySgMlVxGiTJJkiz KjSl6hAYmzvRTjB4z2n2ImH HHwsFGbS0jiHqSjJSRgxIHe RLMwOANmirfmKGNaAXtzU7N uFRRyKIGzmu2rZTBetdtpDJ JkXHBhcn0= [facility] Work Phone: [facility] Work Phone: No Panel Informationon 01-21 EXAMINATION: [...] wedged hepatic: 32. Moderate sedation intraservice time 4636-2622 FLUOROSCOPIST: ERICA ROCK FLUORO TIME: 41.6 Minutes [...] microaccess catheter under fluoroscopic guidance. A 10 [place] curved tip renal vein sheath was then advanced over the wire into the right atrium. The obturator was removed and a 5 [place] MPB catheter was used to select the [...] vein was again selected with a 5 [place] MPB catheter which was then exchanged over an Amplatz wire for the 10 [place] venous sheath. This was repeated several times for attempted transvenous liver biopsy through the right hepatic vein; however, the 10 [place] sheath withdrew during attempted advancement of the biopsy catheter. The 10 [place] venous sheath was then withdrawn into the intrahepatic IVC. The middle hepatic vein was selected with the same 5 [place] catheter which was then exchanged over an Amplatz wire for the 10 [place] venous sheath. The 10 [place] transvenous biopsy catheter was then advanced into the middle hepatic venous sheath and deployed twice for liver biopsy. The transvenous biopsy catheter and a 10 [place] venous sheath were removed. Satisfactory hemostasis was [...] wedged hepatic: 32. Moderate sedation intraservice time 5004-7510 FLUOROSCOPIST: ERICA ROCK FLUORO TIME: 41.6 Minutes [...] microaccess catheter under fluoroscopic guidance. A 10 [place] curved tip renal vein sheath was then advanced over the wire into the right atrium. The obturator was removed and a 5 [place] MPB catheter was used to select the [...] vein was again selected with a 5 [place] MPB catheter which was then exchanged over an Amplatz wire for the 10 [place] venous sheath. This was repeated several times for attempted transvenous liver biopsy through the right hepatic vein; however, the 10 [place] sheath withdrew during attempted advancement of the biopsy catheter. The 10 [place] venous sheath was then withdrawn into the intrahepatic IVC. The middle hepatic vein was selected with the same 5 [place] catheter which was then exchanged over an Amplatz wire for the 10 [place] venous sheath. The 10 [place] transvenous biopsy catheter was then advanced into the middle hepatic venous sheath and deployed twice for liver biopsy. The transvenous biopsy catheter and a 10 [place] venous sheath were removed. Satisfactory hemostasis was [...] pressures and increased portosystemic gradient. MACRO: None [facility] No Panel Informationon 01-20 Radiology Study observation (narrative) [facility] PROTHROMBIN TIME AND INRon 0 01-20-2023 INR Coag (PPP) [Relative time] 2.49 {INR} High 0.90 - 1.10 [facility] Interpretation and review of laboratory results Abnormal [facility] PT Coag (PPP) [Time] 27.9 s High [facility] Basic metabolic 2000 panelon 01-12-2023 Anion gap [Moles/Vol] 12 mmol/L 10 - 20 [facility] Calcium [Mass/Vol] 8.3 mg/dL Low 8.4 - 10. 4 mg/dL [facility] Chloride [Moles/Vol] 105 mmol/L 97 - 111 mmol/L [facility] CO2 [Moles/Vol] 26 mmol/L 21 - 30 mmol/L [facility] Creatinine [Mass/Vol] 0.60 mg/dL Low 0.80 - 1.30 mg/dL [facility] GFR/1.73 sq M.predicted MDRD (S/P/Bld) [Vol rate/Area] 127 mL/min/{1.73_m2} - PINF [facility] Comment on above: 2020 CKD EPI Equatio n using Creatinine without Race Comment: Estimated glomerular filtration rate (eGFR) is calculated without a race coefficient. Values should be interpreted in the context of the patient's full clinical presentation. Reference: 1. Fran C, Bacurtisja M, Linden DC, et al.. A Unifying Approach for GFR Estimation: Recommendations of the NKF-ASN Task Force on Reassessing the Inclusion of Race in Diagnosing Kidney Disease. [place] Journal of Kidney Diseases 202;79(2):268-88.e1. 2. N Engl J Med 2020 Vol. 385 Issue 19 Pages 9683-9370 Glucose [Mass/Vol] 82 mg/dL 68 - 110 mg/dL [facility] Potassium [Moles/Vol] 3.5 mmol/L 3.3 - 5.3 mmol/L [facility] Sodium [Moles/Vol] 139 mmol/L 135 - 148 mmol/L [facility] Urea nitrogen [Mass/Vol] 4 mg/dL Low 8 - 22 mg/dL [facility] C-PEPTIDE, SERUMon C peptide [Mass/Vol] 3.52 ng/mL 0.81 - 3.85 ng/mL [facility] Interpretation and review of laboratory results Normal [facility] CBC panel Auto (Bld)on 01-12 Erythrocyte distribution width (RBC) [Ratio] 15.7 % High 11.5 - 14.5 % [facility] Hematocrit (Bld) [Volume fraction] 35.4 % Low 41.0 - 53.0 % [facility] Hemoglobin (Bld) [Mass/Vol] 12.1 g/dL Low 13.9 - 16.3 g/dL [facility] Interpretation and review of laboratory [...] 6.6 10*3/uL 4.5 - 11.5 K/uL M [facility] Diabetes tracking panelOrder ed By: Moi Christianson on 01-12-2023 Average glucose Estimated from glycated hemoglobin (Bld) [Mass/Vol] 82 mg/dL [facility] HbA1c (Bld) [Mass fraction] 4.5 % 4.0 - 5.6 % [facility] HEPATIC FUNCTION PANELon Albumin [Mass/Vol] 3.2 g/dL Low 3.4 - 5.1 g/dL [facility] ALP [Catalytic activity/Vol] 336 U/L High [facility] ALT [Catalytic activity/Vol] 43 U/L High [facility] AST [Catalytic activity/Vol] 73 U/L High [facility] Bilirubin [Mass/Vol] 8.2 mg/dL High 0.1 - 1.5 mg/dL [facility] Bilirubin.direct [Mass/Vol] 2.28 mg/dL High 0.10 - 0.30 mg/dL [facility] Protein [Mass/Vol] 7.9 g/dL 6.2 - 8.3 g/dL [facility] INSULINon 01-12-2023 Insulin Free Qn 38.[address] [facility] Interpretation and review of laboratory results Abnormal [facility] No Panel Informationon 01-12 Interpretation and review of laboratory results Abnormal [facility] PROTHROMBIN TIME AND INRon 0 01-12-2023 INR Coag (PPP) [Relative time] 1.87 {INR} High 0.90 - 1.10 [facility] Interpretation and review of laboratory results Abnormal [facility] PT Coag (PPP) [Time] 21.0 s High [facility] ALPHA FETOPROTEIN TUMOR ANDRIA Jeri 11-13-2022 AFP 4.4 ng/mL NINF - 8.4 ng/mL [facility] Interpretation and review of laboratory results Normal [facility] Basic metabolic 2000 panelon 11-13-2022 Anion gap [Moles/Vol] 10 mmol/L 10 - 20 [facility] Calcium [Mass/Vol] 8.7 mg/dL 8.4 - 10. 4 mg/dL [facility] Chloride [Moles/Vol] 102 mmol/L 97 - 111 mmol/L [facility] CO2 [Moles/Vol] 30 mmol/L 21 - 30 mmol/L [facility] Creatinine [Mass/Vol] 0.50 mg/dL Low 0.80 - 1.30 mg/dL [facility] GFR/1.73 sq M.predicted MDRD (S/P/Bld) [Vol rate/Area] 134 mL/min/{1.73_m2} [facility] Comment on above: 2020 CKD EPI Equatio [...] Inclusion of Race in Diagnosing Kidney Disease. [place] Journal of Kidney Diseases 202;79(2):268-88.e1. 2. N Engl J Med 2020 Vol. 385 Issue 19 Pages 8523-2425 Glucose [Mass/Vol] 70 mg/dL 68 - 110 mg/dL [facility] Potassium [Moles/Vol] 3.1 mmol/L Low 3.3 - 5.3 mmol/L [facility] Sodium [Moles/Vol] 139 mmol/L 135 - 148 mmol/L [facility] Urea nitrogen [Mass/Vol] 5 mg/dL Low 8 - 22 mg/dL [facility] CBC WITH DIFFERENTIALon Basophils (Bld) [#/Vol] 0.04 [...] (Bld) 63.2 % 31.0 - 76.0 % [facility] Platelet mean volume (Bld) [Entitic vol] 8.2 fL 7.5 - 11.2 fL [facility] Platelets (Bld) [#/Vol] 82 10*3/uL Low 150 - 400 K/uL [facility] RBC (Bld) [#/Vol] 2.69 10*6/uL Low [facility] WBC (Bld) [#/Vol] 5.7 10*3/uL 4.5 - 11.5 K/[facility]L [facility] DIRECT ANTIGLOBULIN TESTon 0 11-13-2022 Direct antiglobulin test.poly specific reagent Ql (RBC) Negative [facility] HAPTOGLOBINon 11-13-2022 Haptoglobin [Mass/Vol] mg/dL Low 36 - 220 mg/dL [facility] Interpretation and review of laboratory results Abnormal [facility] HEPATIC FUNCTION PANELon Albumin [Mass/Vol] 2.9 g/dL Low 3.4 - 5.1 g/dL [facility] ALP [Catalytic activity/Vol] 386 U/L High [facility] ALT [Catalytic activity/Vol] 36 U/L [facility] AST [Catalytic activity/Vol] 68 U/L High [facility] Bilirubin [Mass/Vol] 6.9 mg/dL High 0.1 - 1.5 mg/dL [facility] Bilirubin.direct [Mass/Vol] 1.88 mg/dL High 0.10 - 0.30 mg/dL [facility] Protein [Mass/Vol] 7.0 g/dL 6.2 - 8.3 g/dL [facility] LDHon 11-13-2022 LDH [Catalytic activity/Vol] 255 U/L High [facility] No Panel Informationon 11-13 Interpretation and review of laboratory results Abnormal [facility] Interpretation and review of laboratory results Abnormal [facility] PROTHROMBIN TIME AND INRon 0 11-13-2022 INR Coag (PPP) [Relative time] 1.71 {INR} High 0.90 - 1.10 [facility] Interpretation and review of laboratory results Abnormal [facility] PT Coag (PPP) [Time] 19.[address] [facility]ICULOC[facility]TE COUNTon 023 Immature reticulocytes/Total reticulocytes (Bld) 0.45 % 0.30 - 0.50 [facility] Reticulocytes (Bld) [#/Vol] 0.09 10*3/uL High [facility] Reticulocytes/100 RBC (Bld) 3.3 % High 0.5 - 1.5 % [facility] SMOOTH MUSC ATB SCRN & TITRO rdered By: Juan Luis Ferguson on 08-26-2022 Interpretation and review of laboratory results Normal [facility] Work Phone: Smooth muscle Ab Ql (S) Negative Negative [facility] Work Phone: Negative SMA test do es not exclude the possibility of chronic liver disease. . I certify that I personally conducted the diagnostic evaluation of the above specimen(s) and have rendered the final diagnosis(es). [facility] Work Phone: [facility] Work Phone: Basic metabolic 2000 panelon 08-25-2022 Anion gap [Moles/Vol] 14 mmol/L 10 - 20 [facility] Calcium [Mass/Vol] 8.4 mg/dL 8.4 - 10. 4 mg/dL [facility] Chloride [Moles/Vol] 101 mmol/L 97 - 111 mmol/L [facility] CO2 [Moles/Vol] 26 mmol/L 21 - 30 mmol/L [facility] Creatinine [Mass/Vol] 0.55 mg/dL Low 0.80 - 1.30 mg/dL [facility] GFR/1.73 sq M.predicted MDRD (S/P/Bld) [Vol rate/Area] 131 mL/min/{1.73_m2} - PINF [facility] Comment on above: 2020 CKD [...] Inclusion of Race in Diagnosing Kidney Disease. [place] Journal of Kidney Diseases 2021;79(2):268-88.e1. 2. N Engl J Med 2020 Vol. 385 Issue 19 Pages 4050-4345 Glucose [Mass/Vol] 55 mg/dL Low 68 - 110 mg/dL [facility] Potassium [Moles/Vol] 3.3 mmol/L 3.3 - [...] 3.0 g/dL Low 3.4 - 5.1 g/dL [facility] ALP [Catalytic activity/Vol] 389 U/L High [facility] ALT [Catalytic activity/Vol] 56 U/L High [facility] AST [Catalytic activity/Vol] 103 U/L High [facility] Bilirubin [Mass/Vol] 7.7 mg/dL High 0.1 - 1.5 mg/dL [facility] Bilirubin.direct [Mass/Vol] 2.20 mg/dL High 0.10 - 0.30 mg/dL [facility] Iron [Mass/Vol] 237 ug/dL High 45 - 160 ug/dL [facility] Iron binding capacity [Mass/Vol] 248 ug/mL Low 250 - 410 ug/mL [facility] Iron saturation [Mass fraction] 96 % High 20 - 55 % [facility] Protein [Mass/Vol] 7.2 g/dL 6.2 - 8.3 g/dL [facility] Transferrin [Mass/Vol] 177 mg/dL Low 210 - 375 mg/dL [facility] Laboratory - Serology - non- microon 08-25-2022 Immune complex.IgG [Mass/Vol] 1995 mg/dL High 768 - 1632 mg/dL [facility] No Panel Informationon 08-25 Interpretation and review of laboratory results Abnormal [facility] Interpretation and review of laboratory results Abnormal [facility] Interpretation and review of laboratory results Abnormal [facility] XR Knee - right Viewson 12-0 EXAMINATION: XR KNEE RT ANY 4 OR [...] the calcaneus anteriorly. Right knee MACRO: None [facility] Radiology Study observation (narrative) [facility] XR Knee - right ViewsOrdered By: Colby Mcintosh on 08-15-2022 [facility] Work Phone: Basic metabolic 2000 panelon 08-14-2022 Anion gap [Moles/Vol] 14 mmol/L 10 - 20 [facility] Calcium [Mass/Vol] 7.9 mg/dL Low 8.4 - 10. 4 mg/dL [facility] Chloride [Moles/Vol] 97 mmol/L 97 [...] Inclusion of Race in Diagnosing Kidney Disease. [place] Journal of Kidney Diseases 202;79(2):268-88.e1. 2. N Engl J Med 1 Vol. 385 Issue 19 Pages 5205-0482 Glucose [Mass/Vol] 89 mg/dL 68 - 110 mg/dL [facility] Potassium [Moles/Vol] 3.0 mmol/L Low 3.3 - 5.3 mmol/L [facility] Sodium [Moles/Vol] 132 mmol/L Low 135 - 148 mmol/L [facility] Urea nitrogen [Mass/Vol] 5 mg/dL Low 8 - 22 mg/dL [facility] - Chemistry and C hemistry - challengeon 08-14-2022 Urate [Mass/Vol] 1.9 mg/dL Low 2.0 - 7.3 mg/dL [facility] Albumin [Mass/Vol] 2.9 g/dL Low 3.4 - 5.1 g/dL [facility] ALP [Catalytic activity/Vol] 245 U/L High [...] g/dL 6.2 - 8.3 g/dL [facility] Creatinine (U) [Mass/Vol] 57 mg/dL 10 [...] [facility] Color (U) Light Yellow Yellow [facility] Laboratory - Urinalysison Protein (U) [Mass/Vol] 7 [...] LM.HPF (Urine sed) [#/Area] 6-10 Abnormal [facility] No Panel InformationOrdered By: Tayla Strickland on 08-14-2022 Interpretation and review of laboratory results Abnormal [facility] No Panel Informationon 08-14 Interpretation and review of laboratory results Abnormal [facility] Interpretation and review of laboratory results Abnormal [facility] Interpretation and review of laboratory results Normal [facility] Interpretation and review of laboratory results Abnormal [facility] A negative leukocyte esterase AND negative nitrite [...] (positive predictive value for UTI around 50%) [facility] US.doppler Lower extremity v ein - righton [...] extremity deep venous thrombosis identified. MACRO: None [facility] Radiology Study observation (narrative) [facility] US.doppler Lower extremity v ein - rightOrdered By: Enrique Basurto on 08-14-2022 [facility] Work Phone: Basic metabolic 2000 panelon 05-06-2022 Anion gap [Moles/Vol] 11 mmol/L 10 - 20 [facility] Calcium [Mass/Vol] 8.9 mg/dL 8.4 - 10. 4 mg/dL [facility] Chloride [Moles/Vol] 105 mmol/L 97 - 111 mmol/L [facility] CO2 [Moles/Vol] 25 mmol/L 21 - 30 mmol/L [facility] Creatinine [Mass/Vol] 0.58 mg/dL Low 0.8 - 1.3 mg/dL [facility] Comment on above: Grossly icteric; may falsely decrease creatinine GFR/1.73 sq M.predicted MDRD (S/P/Bld) [Vol rate/Area] 129 mL/min/{1.73_m2} - PINF [facility] Comment on above: 2020 CKD [...] Inclusion of Race in Diagnosing Kidney Disease. [place] Journal of Kidney Diseases 202;79(2):268-88.e1. 2. N Engl J Med 2020 Vol. 385 Issue 19 Pages 9552-6535 Glucose [Mass/Vol] 79 mg/dL 68 - 110 mg/dL [facility] Interpretation and review of laboratory results Abnormal [facility] Potassium [Moles/Vol] 3.6 mmol/L 3.3 - 5.3 mmol/L [facility] Sodium [Moles/Vol] 137 mmol/L 135 - 148 mmol/L [facility] Urea nitrogen [Mass/Vol] 3 mg/dL Low 8 - 22 mg/dL [facility] CBC WITH DIFFERENTIALOrdered By: Isak Mitchell [...] 11.5 g/dL Low 13.9 - 16.3 g/dL [facility] Interpretation and review of [...] 4.2 10*3/uL Low 4.5 - 11.5 K/uL [facility] HAPTOGLOBINon 05-06-2022 Haptoglobin [Mass/Vol] mg/dL Low 36 - 220 mg/dL [facility] Interpretation and review of laboratory results Abnormal [facility] HEPATIC FUNCTION PANELon Albumin [Mass/Vol] 3.0 g/dL Low 3.4 - 5.1 g/dL [facility] ALP [Catalytic activity/Vol] 373 U/L High [facility] ALT [Catalytic activity/Vol] 47 U/L High [facility] AST [Catalytic activity/Vol] 87 U/L High [facility] Bilirubin [Mass/Vol] 8.3 mg/dL High 0.1 - 1.5 mg/dL [facility] Bilirubin.direct [Mass/Vol] 1.50 mg/dL High 0.1 - 0.3 mg/dL [facility] Protein [Mass/Vol] 6.7 g/dL 6.2 - 8.3 g/dL [facility] LDHon 05-06-2022 LDH [Catalytic activity/Vol] 270 U/L High [facility] No Panel Informationon 05-06 Interpretation and review of laboratory results Abnormal [facility] URIC ACIDon 05-06-2022 Interpretation and review of laboratory results Normal [facility] Urate [Mass/Vol] 3.2 mg/dL 2 - 7.3 mg/dL [facility] Basic metabolic 2000 panelon 03-13-2022 Anion gap [Moles/Vol] 11 mmol/L [facility] Calcium [Mass/Vol] 8.2 mg/dL Low 8.4 - 10. 4 mg/dL [facility] Chloride [Moles/Vol] 103 mmol/L 97 - 111 mmol/L [facility] CO2 [Moles/Vol] 25 mmol/L 21 - 30 mmol/L [facility] Creatinine [Mass/Vol] 0.51 mg/dL Low 0.80 - 1.30 mg/dL [facility] Comment on above: Grossly icteric; may falsely decrease creatinine GFR/1.73 sq M.predicted MDRD (S/P/Bld) [Vol rate/Area] 134 mL/min/{1.73_m2} >=60 mL/min/1.73sqm [facility] Comment on above: 2020 CKD EPI Equatio [...] Inclusion of Race in Diagnosing Kidney Disease. [place] Journal of Kidney Diseases 202;79(2):268-88.e1. 2. N Engl J Med 1 Vol. 385 Issue 19 Pages 4816-5892 Glucose [Mass/Vol] 119 mg/dL High 68 - 110 mg/dL [facility] Interpretation and review of laboratory results Abnormal [facility] Potassium [Moles/Vol] 3.6 mmol/L 3.3 - 5.3 mmol/L [facility] Sodium [Moles/Vol] 135 mmol/L 135 - 148 mmol/L [facility] Urea nitrogen [Mass/Vol] 3 mg/dL Low 8 - 22 mg/dL [facility] CBC WITH DIFFERENTIALon Basophils (Bld) [#/Vol] 0.03 [...] 9.9 g/dL Low 13.9 - 16.3 g/dL [facility] Interpretation and review of [...] 1.35 10*3/uL Low 1.50 - 8.00 K/uL [facility] Neutrophils/100 WBC (Bld) 34.2 % 31.0 - 76.0 % [facility] Platelet mean volume (Bld) [Entitic vol] 7.3 fL Low 7.5 - 11.2 fL [facility] Platelets (Bld) [#/Vol] 114 10*3/uL Low 150 - 400 K/uL [facility] RBC (Bld) [#/Vol] 2.81 10*6/uL Low [facility] WBC (Bld) [#/Vol] 4.0 10*3/uL Low 4.5 - 11.5 K/uL [facility] and C hemistry - challengeon 03-13-2022 Albumin [Mass/Vol] 2.6 g/dL Low 3.4 - 5.1 g/dL [facility] ALP [Catalytic activity/Vol] 278 U/L High [facility] ALT [Catalytic activity/Vol] 33 U/L [facility] AST [Catalytic activity/Vol] 68 U/L High [facility] Bilirubin [Mass/Vol] 5.6 mg/dL High 0.1 - 1.5 mg/dL [facility] Bilirubin.direct [Mass/Vol] 1.20 mg/dL High 0.10 - 0.30 mg/dL [facility] LDH [Catalytic activity/Vol] 258 U/L High [facility] Protein [Mass/Vol] 6.2 g/dL 6.2 - 8.3 g/dL [facility] Urate [Mass/Vol] 3.0 mg/dL 2.0 - 7.3 mg/dL [facility] Laboratory - Hematology and Cell countson 03-13-2022 Haptoglobin [Mass/Vol] mg/dL Low 36 - 220 mg/dL [facility] No Panel Informationon 03-13 Interpretation and review of laboratory results Abnormal [facility] Interpretation and review of laboratory results Abnormal [facility] Interpretation and review of laboratory results Normal [facility] CHEMISTRYOrdered By: SYSTEM SYSTEM on 02-17-2022 Lactate [Mass/Vol] 1.8 mmol/L Normal 0.5 - 2.2 mmol/L [facility] Remisol Albumin [Mass/Vol] 2.8 g/dL Low 3.3 [...] Calcium [Mass/Vol] 8.0 mg/dL Low 8.9 - 11. 1 mg/dL [facility] Remisol Chloride [Moles/Vol] 102 mmol/L Normal 101 - 1 11 mmol/L [facility] Remisol CO2 [Moles/Vol] 22 mmol/L Normal 21 - 31 mmol/L [facility] Remisol Creatinine [Mass/Vol] 0.5 mg/dL Normal 0.5 - 1.3 mg/dL [facility] Remisol GFR/1.73 sq M.predicted among blacks MDRD (S/P/Bld) [Vol rate/Area] mL/min/1.73 m2 Normal >=59mL/min/1.73 m2 [facility] Chem S GFR/1.73 sq M.predicted among non-blacks MDRD (S/P/Bld) [Vol rate/Area] mL/min/1.73 m2 Normal >=59mL/min/1.73 m2 [facility] Chem S Globulin (S) [Mass/Vol] 3.9 g/dL Normal 1.4 - 4.0 gm/dL [facility] Remisol Glucose [Mass/Vol] 123 mg/dL Normal 55 - 199 mg/dL [facility] Remisol Lipase [Catalytic activity/Vol] 68 U/L High 13 - 58 unit/L [facility] Remisol Potassium [Moles/Vol] 3.2 mmol/L Low 3.5 - 5.3 mmol/L [facility] Remisol Protein [Mass/Vol] 6.7 g/dL Normal 6.0 - 7.8 gm/dL [facility] Remisol Sodium [Moles/Vol] 133 mmol/L Low 135 - 145 mmol/L [facility] Remisol Urea nitrogen [Mass/Vol] 6 mg/dL Normal 5 - 21 mg/dL [facility] Remisol Urea nitrogen/Creatinine [Mass ratio] 12 mg/mg [...] 29.1 % Low 37.7 - 49.0 % [facility] HemeAutoSS Hemoglobin (Bld) [Mass/Vol] 10.4 g/dL Low 13.5 - 17.5 gm/dL [facility] MCH (RBC) [Entitic mass] 37.8 pg High 27.0 - 34.0 pg [facility] MCHC (RBC) [Mass/Vol] 35.7 g/dL Normal 31.4 - 36.0 gm/dL [facility] MCV (RBC) [Entitic vol] 105.8 fL High 80.0 - 100.0 fL [facility] Platelet mean volume (Bld) [Entitic vol] 7.3 fL Normal 6.4 - 10.8 fL [facility] Platelets (Bld) [#/Vol] 113.0 E9/L Low 150.0 - 500.0 E9/L [facility] Comment on above: Result Comment: Unab [...] PM) Normal Negative [facility] UA Auto SS Hemoglobin Ql (U) Negative (02/17/22 1:14 PM) Normal Negative [facility] Auto SS Ketones (U) [Mass/Vol] Negative (02/17/22 1:14 PM) Normal Negative [facility] UA Auto SS Colma.plasma/Lithi um.RBC (Bld) [Mass ratio] 0-3 /HPF Normal 0-3/HPF [facility] UA Auto SS Nitrite Ql (U) Negative (02/17/22 1:14 PM) Normal Negative [facility] UA Auto SS pH (U) 7.0 *NA* (02/17/22 1:14 PM) Invalid Interpretation Code 5.0 - 9.0 [facility] UA Auto SS Protein (U) [Mass/Vol] Negative (02/17/22 1:14 PM) Normal Negative [facility] UA Auto SS Specific gravity (U) [Rel density] <=1.005 *NA* (02/17/22 1:14 PM) Invalid Interpretation Code 1.005 - 1.030 [facility] UA Auto SS UA Spec Desc Clean Catch (02/17/22 1:14 PM) Normal [facility] UA Auto SS Urobilinogen Qn (U) [id number] {Alexey'U}/dL Normal 0.0 - 1.0 EU/dL [facility] UA Auto SS WBC Auto Ql (U) Negative (02/17/22 1:14 PM) Normal Negative [facility] UA Auto SS WBC LM.HPF (Urine sed) [#/Area] 0-5 /HPF Normal 0-5/HPF [facility] UA Auto SS Basic metabolic 2000 panelon 02-11-2022 Anion gap [Moles/Vol] 10 mmol/L [facility] Calcium [Mass/Vol] 8.2 mg/dL Low 8.4 - 10. 4 mg/dL [facility] Chloride [Moles/Vol] 103 mmol/L 97 - 111 mmol/L [facility] CO2 [Moles/Vol] 24 mmol/L 21 - 30 mmol/L [facility] Creatinine [Mass/Vol] 0.49 mg/dL Low 0.80 - 1.30 mg/dL [facility] Comment on above: Grossly icteric; may falsely decrease creatinine GFR/1.73 sq M.predicted MDRD (S/P/Bld) [Vol rate/Area] 136 mL/min/{1.73_m2} >=60 mL/min/1.73sqm [facility] Comment on above: 2020 CKD EPI [...] Inclusion of Race in Diagnosing Kidney Disease. [place] Journal of Kidney Diseases 202;79(2):268-88.e1. 2. N Engl J Med 2020 Vol. 385 Issue 19 Pages 1526-5201 Glucose [Mass/Vol] 105 mg/dL 68 - 110 mg/dL [facility] Interpretation and review of laboratory [...] [facility] RBC (Bld) [#/Vol] 2.69 10*6/uL Low [facility] WBC (Bld) [#/Vol] 4.9 10*3/uL 4.5 - 11.5 K/uL [facility] HAPTOGLOBINon 02-11-2022 Haptoglobin [Mass/Vol] mg/dL Low 36 - 220 mg/dL [facility] Interpretation and review of laboratory results Abnormal [facility] LDHon 02-11-2022 LDH [Catalytic activity/Vol] 321 U/L High [facility] Laboratory - Chemistry and C hemistry - challengeon 02-11-2022 Albumin [Mass/Vol] 2.8 g/dL Low 3.4 - 5.1 g/dL [facility] ALP [Catalytic activity/Vol] 226 U/L High [facility] ALT [Catalytic activity/Vol] 77 U/L [facility] AST [Catalytic activity/Vol] 88 U/L High [facility] Bilirubin [Mass/Vol] 7.7 mg/dL High 0.1 - 1.5 mg/dL [facility] Bilirubin.direct [Mass/Vol] 1.70 mg/dL High 0.10 - 0.30 mg/dL [facility] Protein [Mass/Vol] 6.2 g/dL 6.2 - 8.3 g/dL [facility] MANUAL DIFF AND MORPHon Anisocytosis Ql (Bld) Slight [facility] Band form neutrophils/100 WBC (Bld) 5 % <=10 [facility] Bands # 0.25 K/uL High <0.01 [facility] Cells Counted Total (Bld) [#] 100 {cells} [...] 1 % [facility] Nucleated RBCs 1 K/[facility]L [facility] Ql (Bld) Slight [facility] No Panel InformationOrdered By: Ami Brock on 02-11-2022 Interpretation and review of laboratory results Abnormal [facility] No Panel Informationon 02-11 Interpretation and review of laboratory results Abnormal [facility] RETICULOCYTE COUNTOrdered By : Kennedi Fuentes on 02-11-2022 Immature reticulocytes/Total reticulocytes (Bld) 0.45 % [facility] Interpretation and review of laboratory results Abnormal [facility] Reticulocytes (Bld) [#/Vol] 0.08 10*3/uL [facility] Reticulocytes/100 RBC (Bld) 3.0 % High 0.5 - 1.5 % [facility] Basic metabolic 2000 panelon 01-17-2022 Anion gap [Moles/Vol] 13 mmol/L [facility] Calcium [Mass/Vol] 8.2 mg/dL Low 8.4 - 10. 4 mg/dL [facility] Chloride [Moles/Vol] 99 mmol/L 97 - 111 mmol/L [facility] CO2 [Moles/Vol] 23 mmol/L 21 - 30 mmol/L [facility] Creatinine [Mass/Vol] 0.42 mg/dL Low 0.80 - 1.30 mg/dL [facility] GFR/1.73 sq M.predicted MDRD (S/P/Bld) [Vol rate/Area] 142 mL/min/{1.73_m2} >=60 mL/min/1.73sqm [facility] Glucose [Mass/Vol] 84 mg/dL 68 - 110 mg/dL [facility] Potassium [Moles/Vol] 3.8 mmol/L 3.3 - 5.3 [...] 9.5 10*3/uL 4.5 - 11.5 K/uL [facility] GLUCOSE, FINGERSTICK-IN OFFI CEon 01-17-2022 Glucose [Mass/Vol] 188 mg/dL High 68 - 110 mg/dL [facility] Interpretation and review of laboratory results Abnormal [facility] HAPTOGLOBINon 01-17-2022 Haptoglobin [Mass/Vol] mg/dL Low 36 - 220 mg[facility] Interpretation and review of laboratory results Abnormal [facility] HEPATIC FUNCTION PANELon Albumin [Mass/Vol] 2.8 g/dL Low 3.4 - 5.1 g/dL [facility] ALP [Catalytic activity/Vol] 133 U/L [facility] ALT [Catalytic activity/Vol] 75 U/L High [facility] AST [Catalytic activity/Vol] 94 U/L [facility] Bilirubin [Mass/Vol] 12.6 mg/dL High 0.1 - 1.5 mg/dL [facility] Bilirubin.direct [Mass/Vol] 2.40 mg/dL High 0.10 - 0.30 mg/dL [facility] Protein [Mass/Vol] 6.7 g/dL 6.2 - 8.3 g/dL [facility] LDHon 01-17-2022 LDH [Catalytic activity/Vol] 514 U/L High [facility] No Panel Informationon 01-17 Interpretation and review of laboratory results Abnormal [facility] PROTHROMBIN TIME AND INRon 0 01-17-2022 INR Coag (PPP) [Relative time] 1.97 {INR} High [facility] Interpretation and review of laboratory results Abnormal [facility] PT Coag (PPP) [Time] 22.[address] [facility] RETICULOCYTE COUNTon 022 Immature reticulocytes/Total reticulocytes (Bld) 0.61 % High [facility] Interpretation and review of laboratory results Abnormal [facility] Reticulocytes (Bld) [#/Vol] 0.14 10*3/uL High [facility] Reticulocytes/100 RBC (Bld) 6.5 % High 0.5 - 1.5 % [facility] Basic metabolic 2000 panelon 01-16-2022 Anion gap [Moles/Vol] 14 mmol/L [facility] Calcium [Mass/Vol] 8.3 mg/dL Low 8.4 - 10. 4 mg/dL [facility] Chloride [Moles/Vol] 98 mmol/L 97 - 111 mmol/L [facility] CO2 [Moles/Vol] 24 mmol/L 21 - 30 mmol/L [facility] Creatinine [Mass/Vol] 0.42 mg/dL Low 0.80 - 1.30 mg/dL [facility] GFR/1.73 sq M.predicted MDRD (S/P/Bld) [Vol rate/Area] 142 mL/min/{1.73_m2} >=60 mL/min/1.73sqm [facility] Glucose [Mass/Vol] 102 mg/dL 68 - 110 mg/dL [facility] Potassium [Moles/Vol] 3.7 mmol/L 3.3 - 5.3 mmol/L [facility] Sodium [Moles/Vol] 132 mmol/L Low 135 - 148 mmol/L [facility] Urea nitrogen [Mass/Vol] 9 mg/dL 8 - 22 mg/dL [facility] panel Auto (Bld)on 01-16 Erythrocyte distribution width (RBC) [Ratio] 23.7 % High 11.5 - 14.5 % [facility] Hematocrit (Bld) [Volume fraction] 21.6 % Low 41.0 - 53.0 % [facility] Hemoglobin (Bld) [Mass/Vol] 7.4 g/dL Low 13.9 - 16.3 g/dL [facility] Interpretation and review of laboratory results Abnormal [facility] MCH (RBC) [Entitic mass] 38.6 pg High 26.0 - 34.0 pg [facility] MCHC (RBC) [Mass/Vol] 34.4 g/dL 32.0 - 35.9 g/dL [facility] MCV (RBC) [Entitic vol] 112 fL High 80 - 100 fL [facility] Platelet mean volume (Bld) [Entitic vol] 9.3 fL 7.5 - 11.2 fL [facility] Platelets (Bld) [#/Vol] 94 10*3/uL Low 150 - 400 K/uL [facility] RBC (Bld) [#/Vol] 1.92 10*6/uL Low [facility] WBC (Bld) [#/Vol] 9.2 10*3/uL 4.5 - 11.5 K/uL [facility] GLUCOSE, FINGERSTICK-IN OFFI CEon 01-16-2022 Glucose [Mass/Vol] 145 mg/dL High 68 - 110 mg/dL [facility] Interpretation and review of laboratory results Abnormal [facility] Glucose [Mass/Vol] 247 mg/dL High 68 - 110 mg/dL [facility] Interpretation and review of laboratory results Abnormal [facility] Glucose [Mass/Vol] 132 mg/dL High 68 - 110 mg/dL [facility] Interpretation and review of laboratory results Abnormal [facility] Glucose [Mass/Vol] 90 mg/dL 68 - 110 mg/dL [facility] Interpretation and review of laboratory results Normal [facility] HAPTOGLOBINon 01-16-2022 Haptoglobin [Mass/Vol] mg/dL Low 36 - 220 mg/dL [facility] Interpretation and review of laboratory results Abnormal [facility] HEPATIC FUNCTION PANELon Albumin [Mass/Vol] 2.7 g/dL Low 3.4 - 5.1 g/dL [facility] ALP [Catalytic activity/Vol] 124 U/L [facility] ALT [Catalytic activity/Vol] 69 U/L High [facility] AST [Catalytic activity/Vol] 93 U/L High [facility] Bilirubin [Mass/Vol] 12.7 mg/dL High 0.1 - 1.5 mg/dL [facility] Bilirubin.direct [Mass/Vol] 2.30 mg/dL High 0.10 - 0.30 mg/dL [facility] Protein [Mass/Vol] 6.3 g/dL 6.2 - 8.3 g/dL [facility] LDHon 01-16-2022 LDH [Catalytic activity/Vol] 476 U/L High [facility] No Panel Informationon 01-16 Interpretation and review of laboratory results Abnormal [facility] PROTHROMBIN TIME AND INRon 0 01-16-2022 INR Coag (PPP) [Relative time] 2.08 {INR} High [facility] Interpretation and review of laboratory results Abnormal [facility] PT Coag (PPP) [Time] 23.3 s High [facility] Basic metabolic 2000 panelon 01-15-2022 Anion gap [Moles/Vol] 14 mmol/L [facility] Calcium [Mass/Vol] 7.9 mg/dL Low 8.4 - 10. 4 mg/dL [facility] Chloride [Moles/Vol] 97 mmol/L 97 - 111 mmol/L [facility] CO2 [Moles/Vol] 25 mmol/L 21 - 30 mmol/L [facility] Creatinine [Mass/Vol] 0.42 mg/dL Low 0.80 - 1.30 mg/dL [facility] GFR/1.73 sq M.predicted MDRD (S/P/Bld) [Vol rate/Area] 142 mL/min/{1.73_m2} >=60 mL/min/1.73sqm [facility] Glucose [Mass/Vol] 112 mg/dL High 68 - 110 mg/dL [facility] Potassium [Moles/Vol] 3.5 mmol/L 3.3 - 5.3 mmol/L [facility] Sodium [Moles/Vol] 132 mmol/L Low 135 - 148 mmol/L [facility] Urea nitrogen [Mass/Vol] 8 mg/dL 8 - 22 mg/dL [facility] CBC panel Auto (Bld)on 01-15 Erythrocyte distribution width (RBC) [Ratio] 24.4 % High 11.5 - 14.5 % [facility] Hematocrit (Bld) [Volume fraction] 21.1 % Low 41.0 - 53.0 % [facility] Hemoglobin (Bld) [Mass/Vol] 7.3 g/dL Low 13.9 - 16.3 g/dL [facility] Interpretation and review of [...] 74 10*3/uL Low 150 - 400 K/uL [facility] RBC (Bld) [#/Vol] 1.88 10*6/uL Low [facility] WBC (Bld) [#/Vol] 8.9 10*3/uL 4.5 - 11.5 K/[facility]L [facility] GLUCOSE, FINGERSTICK-IN OFFI ESTRELLITAon 01-15-2022 Glucose [Mass/Vol] 149 mg/dL High 68 - 110 mg/dL [facility] Interpretation and review of laboratory results Abnormal [facility] Glucose [Mass/Vol] 175 mg/dL High 68 - 110 mg/dL [facility] Interpretation and review of laboratory results Abnormal [facility] Glucose [Mass/Vol] 129 mg/dL High 68 - 110 mg/dL [facility] Interpretation and review of laboratory results Abnormal [facility] Glucose [Mass/Vol] 148 mg/dL High 68 - 110 mg/dL [facility] Interpretation and review of laboratory results Abnormal [facility] HAPTOGLOBINon 01-15-2022 Haptoglobin [Mass/Vol] mg/dL Low 36 - 220 mg/dL [facility] Interpretation and review of laboratory results Abnormal [facility] HEPATIC FUNCTION PANELon Albumin [Mass/Vol] 2.6 g/dL Low 3.4 - 5.1 g/dL [facility] ALP [Catalytic activity/Vol] 182 U/L [facility] ALT [Catalytic activity/Vol] 65 U/L High [facility] AST [Catalytic activity/Vol] 104 U/L High [facility] Bilirubin [Mass/Vol] 10.8 mg/dL High 0.1 - 1.5 mg/dL [facility] Bilirubin.direct [Mass/Vol] 2.10 mg/dL High 0.10 - 0.30 mg/dL [facility] Protein [Mass/Vol] 6.5 g/dL 6.2 - 8.3 g/dL [facility] LDHon 01-15-2022 LDH [Catalytic activity/Vol] 481 U/L High [facility] No Panel Informationon 01-15 Interpretation and review of laboratory results Abnormal [facility] PROTHROMBIN TIME AND INRon 0 01-15-2022 INR Coag (PPP) [Relative time] 1.89 {INR} High [facility] Interpretation and review of laboratory results Abnormal [facility] PT Coag (PPP) [Time] 21.2 s High [facility] Basic metabolic 2000 panelon 01-14-2022 Anion gap [Moles/Vol] 11 mmol/L [facility] Calcium [Mass/Vol] 8.2 mg/dL Low 8.4 - 10. 4 mg/dL [facility] Chloride [Moles/Vol] 101 mmol/L 97 - 111 mmol/L [facility] CO2 [Moles/Vol] 27 mmol/L 21 - 30 mmol/L [facility] Creatinine [Mass/Vol] 0.44 mg/dL Low 0.80 - 1.30 mg/dL [facility] GFR/1.73 sq M.predicted MDRD (S/P/Bld) [Vol rate/Area] 140 mL/min/{1.73_m2} >=60 mL/min/1.73sqm [facility] Glucose [Mass/Vol] 136 mg/dL High 68 - 110 mg/dL [facility] Potassium [Moles/Vol] 3.4 mmol/L 3.3 - [...] 122 mg/dL Low 200 - 500 mg/dL [facility] Interpretation and review of laboratory results Abnormal [facility] GLUCOSE, FINGERSTICK-IN OFFI CEon 01-14-2022 Glucose [Mass/Vol] 139 mg/dL High 68 - 110 mg/dL [facility] Interpretation and review of laboratory results Abnormal [facility] Glucose [Mass/Vol] 203 mg/dL High 68 - 110 mg/dL [facility] Interpretation and review of laboratory results Abnormal [facility] Glucose [Mass/Vol] 143 mg/dL High 68 - 110 mg/dL [facility] Interpretation and review of laboratory results Abnormal [facility] Glucose [Mass/Vol] 154 mg/dL High 68 - 110 mg/dL [facility] Interpretation and review of laboratory results Abnormal [facility] HAPTOGLOBINon 01-14-2022 Haptoglobin [Mass/Vol] mg/dL Low 36 - 220 mg/dL [facility] Interpretation and review of laboratory results Abnormal [facility] HEPATIC FUNCTION PANELon Albumin [Mass/Vol] 2.6 g/dL Low 3.4 - 5.1 g/dL [facility] ALP [Catalytic activity/Vol] 177 U/L [facility] ALT [Catalytic activity/Vol] 62 U/L High [facility] AST [Catalytic activity/Vol] 104 U/L High [facility] Bilirubin [Mass/Vol] 11.5 mg/dL High 0.1 - 1.5 mg/dL [facility] Bilirubin.direct [Mass/Vol] 2.20 mg/dL High 0.10 - 0.30 mg/dL [facility] Protein [Mass/Vol] 6.4 g/dL 6.2 - 8.3 g/dL [facility] LDHon 01-14-2022 LDH [Catalytic activity/Vol] 473 U/L High [facility] Laboratory - Microbiology an d Antimicrobial susceptibilityon 01-14-2022 Bacteria identified Cx Nom (Bld) No Growth [facility] MANUAL DIFF AND MORPHon 01-05 Anisocytosis Ql (Bld) Marked [facility] [place] cells LM Ql (Bld) Few [facility] Cells Counted Total (Bld) [#] 100 {cells} [facility] Eosinophils (Bld) [#/Vol] 0.15 10*3/uL 0.00 - 0.70 K/uL [facility] Eosinophils/100 WBC (Bld) 2.0 % 0.1 - [...] Interpretation and review of laboratory results [facility] review of [facility] results [facility] No Panel InformationOrdered By: Erika Martin on 01-14-2022 Interpretation and review of laboratory results Abnormal [facility] PROTHROMBIN TIME AND INRon 0 01-14-2022 INR Coag (PPP) [Relative time] 1.94 {INR} High [facility] Interpretation and review of laboratory results Abnormal [facility] PT Coag (PPP) [Time] 21.8 s High [facility] Basic metabolic 2000 panelon 01-13-2022 Anion gap [Moles/Vol] 10 mmol/L [facility] Calcium [Mass/Vol] 8.1 mg/dL Low 8.4 - 10. 4 mg/dL [facility] Chloride [Moles/Vol] 99 mmol/L 97 - 111 mmol/L [facility] CO2 [Moles/Vol] 29 mmol/L 21 - 30 mmol/L [facility] Creatinine [Mass/Vol] 0.40 mg/dL Low 0.80 - 1.30 mg/dL [facility] GFR/1.73 sq M.predicted MDRD (S/P/Bld) [Vol rate/Area] 144 mL/min/{1.73_m2} >=60 mL/min/1.73sqm [facility] Glucose [Mass/Vol] 130 mg/dL High 68 - 110 mg/dL [facility] Potassium [Moles/Vol] 3.4 mmol/L 3.3 - 5.3 mmol/L [facility] Sodium [Moles/Vol] 135 mmol/L 135 - 148 mmol/L [facility] Urea nitrogen [Mass/Vol] 6 mg/dL Low 8 - 22 mg/dL [facility] CBC WITH DIFFERENTIALon Erythrocyte distribution width (RBC) [Ratio] 24.4 % High 11.5 - 14.5 % [facility] Hematocrit (Bld) [Volume fraction] 19.3 % Critically low 41.0 - 53.0 % [facility] Hemoglobin (Bld) [Mass/Vol] 6.7 g/dL Critically low 13.9 - 16.3 g/dL [facility] MCH (RBC) [Entitic mass] 38.1 pg High 26.0 - 34.0 pg [facility] MCHC (RBC) [Mass/Vol] 34.7 g/dL 32.0 - 35.9 g/dL [facility] MCV (RBC) [Entitic vol] 110 fL High 80 - 100 fL [facility] Monocyte distribution width Auto (Bld) [Entitic vol] [facility] Nucleated RBC (Bld) [#/Vol] 0.22 10*3/uL [facility] Nucleated RBC/100 WBC (Bld) [Ratio] 3.0 % [facility] Platelet mean volume (Bld) [Entitic vol] 8.9 fL 7.5 - 11.2 fL [facility] Platelets (Bld) [#/Vol] 67 10*3/uL Low 150 - 400 K/uL [facility] RBC (Bld) [#/Vol] 1.76 10*6/uL Low [facility] WBC (Bld) [#/Vol] 7.3 10*3/uL 4.5 - 11.5 K/uL [facility] COPPERon 01-13-2022 Copper [Mass/Vol] 63 Low [facility] Interpretation and review of laboratory results Abnormal [facility] FACTOR VIII ASSAYOrdered By: Jozef Gibbons on 01-13-2022 Factor VIII Assay 356 % High 55 - 180 % [facility] Interpretation and review of laboratory results Abnormal [facility] GLUCOSE, FINGERSTICK-IN OFFI CEon 01-13-2022 Glucose [Mass/Vol] 185 mg/dL High 68 - 110 mg/dL [facility] Glucose [Mass/Vol] 226 mg/dL High 68 - 110 mg/dL [facility] Glucose [Mass/Vol] 152 mg/dL High 68 - 110 mg/dL [facility] Interpretation and review of laboratory results Abnormal [facility] Glucose [Mass/Vol] 140 mg/dL High 68 - 110 mg/dL [facility] Interpretation and review of laboratory results Abnormal [facility] HAPTOGLOBINon 01-13-2022 Haptoglobin [Mass/Vol] mg/dL Low 36 - 220 mg/dL [facility] Interpretation and review of laboratory results Abnormal [facility] HEPATIC FUNCTION PANELon Albumin [Mass/Vol] 2.6 g/dL Low 3.4 - 5.1 g/dL [facility] ALP [Catalytic activity/Vol] 169 U/L [facility] ALT [Catalytic activity/Vol] 63 U/L High [facility] AST [Catalytic activity/Vol] 124 U/L High [facility] Bilirubin [Mass/Vol] 11.4 mg/dL High 0.1 - 1.5 mg/dL [facility] Bilirubin.direct [Mass/Vol] 2.10 mg/dL High 0.10 - 0.30 mg/dL [facility] Protein [Mass/Vol] 6.2 g/dL 6.2 - 8.3 g/dL [facility] HEPATITIS C QUANT BY PCROrde red By: Gera Meza on 01-13-2022 HCV RNA panel ANGIE+probe Not detected Not Detected [facility] LDHon 01-13-2022 LDH [Catalytic activity/Vol] 497 U/L High [facility] MANUAL DIFF AND MORPHon Anisocytosis Ql (Bld) Marked [facility] Atypical Lymph # 0.15 K/uL [facility] Band form neutrophils/100 WBC (Bld) 8 % <=10 [facility] Bands # 0.58 K/uL High <0.01 [facility] [place] cells LM Ql (Bld) Few [facility] Cells [...] [facility] PROTHROMBIN TIME AND INRon 0 01-13-2022 INR Coag (PPP) [Relative time] 2.05 {INR} High [facility] Interpretation and review of laboratory results Abnormal [facility] PT Coag (PPP) [Time] 23.0 s High [facility] Basic metabolic 2000 panelon 01-12-2022 Anion gap [Moles/Vol] 11 mmol/L [facility] Calcium [Mass/Vol] 7.9 mg/dL Low 8.4 - 10. 4 mg/dL [facility] Chloride [Moles/Vol] 98 mmol/L 97 - 111 mmol/L [facility] CO2 [Moles/Vol] 26 mmol/L 21 - 30 mmol/L [facility] Creatinine [Mass/Vol] 0.39 mg/dL Low 0.80 - 1.30 mg/dL [facility] GFR/1.73 sq M.predicted MDRD (S/P/Bld) [Vol rate/Area] 145 mL/min/{1.73_m2} >=60 mL/min/1.73sqm [facility] Glucose [Mass/Vol] 147 mg/dL High 68 - 110 mg/dL [facility] Interpretation and review of laboratory [...] CBC WITH DIFFERENTIALon 050 Basophils (Bld) [#/Vol] 0.06 10*3/uL 0.00 - [...] 8.0 10*3/uL 4.5 - 11.5 K/uL [facility] GLUCOSE, FINGERSTICK-IN OFFI CEon 01-12-2022 Glucose [Mass/Vol] 140 mg/dL High 68 - 110 mg/dL [facility] Interpretation and review of laboratory results Abnormal [facility] Glucose [Mass/Vol] 157 mg/dL High 68 - 110 mg/dL [facility] Interpretation and review of laboratory results Abnormal [facility] HAPTOGLOBINon 01-12-2022 Haptoglobin [Mass/Vol] mg/dL Low 36 - 220 mg/dL [facility] Interpretation and review of laboratory results Abnormal [facility] HEPATIC FUNCTION PANELon Albumin [Mass/Vol] 2.6 g/dL Low 3.4 - 5.1 g/dL [facility] ALP [Catalytic activity/Vol] 148 U/L [facility] ALT [Catalytic activity/Vol] 61 U/L High [facility] AST [Catalytic activity/Vol] 131 U/L High [facility] Bilirubin [Mass/Vol] 11.1 mg/dL High 0.1 - 1.5 mg/dL [facility] Bilirubin.direct [Mass/Vol] 2.10 mg/dL High 0.10 - 0.30 mg/dL [facility] Protein [Mass/Vol] 6.4 g/dL 6.2 - 8.3 g/dL [facility] LDHon 01-12-2022 LDH [Catalytic activity/Vol] [...] Slight [facility] Anisocytosis Ql (Bld) Marked [facility] [place] cells LM Ql (Bld) Few [facility] Cells [...] Calcium [Mass/Vol] 8.0 mg/dL Low 8.4 - 10. 4 mg/dL [facility] Chloride [Moles/Vol] 101 mmol/L 97 - 111 mmol/L [facility] CO2 [Moles/Vol] 25 mmol/L 21 - 30 mmol/L [facility] Creatinine [Mass/Vol] 0.43 mg/dL Low 0.80 - 1.30 mg/dL [facility] GFR/1.73 sq M.predicted MDRD (S/P/Bld) [Vol rate/Area] 141 mL/min/{1.73_m2} >=60 mL/min/1.73sqm [facility] Glucose [Mass/Vol] 149 mg/dL High 68 - 110 mg/dL [facility] Potassium [Moles/Vol] 3.4 mmol/L 3.3 - [...] CBC WITH DIFFERENTIALon 0 Basophils (Bld) [#/Vol] 0.04 10*3/uL 0.00 - [...] [#/Vol] 5.33 10*3/uL 1.50 - 8.00 K/uL [facility] Neutrophils/100 WBC (Bld) 73.3 % 31.0 - 76.0 % [facility] Platelet mean volume (Bld) [Entitic vol] 8.4 fL 7.5 - 11.2 fL [facility] Platelets (Bld) [#/Vol] 62 10*3/uL Low 150 - 400 K/uL [facility] RBC (Bld) [#/Vol] 1.54 10*6/uL Low [facility] WBC (Bld) [#/Vol] 7.3 10*3/uL 4.5 - 11.5 K/uL [facility] GLUCOSE, FINGERSTICK-IN OFFI CEon 01-11-2022 Glucose [Mass/Vol] 167 mg/dL High 68 - 110 mg/dL [facility] Interpretation and review of laboratory results Abnormal [facility] HAPTOGLOBINon 01-11-2022 Haptoglobin [Mass/Vol] mg/dL Low 36 - 220 mg/dL [facility] Interpretation and review of laboratory results Abnormal [facility] HEPATIC FUNCTION PANELon Albumin [Mass/Vol] 2.6 g/dL Low 3.4 - 5.1 g/dL [facility] ALP [Catalytic activity/Vol] 95 U/L [facility] ALT [Catalytic activity/Vol] 57 U/L High [facility] AST [Catalytic activity/Vol] 143 U/L High [facility] Bilirubin [Mass/Vol] 11.4 mg/dL High 0.1 - 1.5 mg/dL [facility] Bilirubin.direct [Mass/Vol] 2.20 mg/dL High 0.10 - 0.30 mg/dL [facility] Protein [Mass/Vol] 5.7 g/dL Low 6.2 - 8.3 g/dL [facility] LDHon 01-11-2022 LDH [Catalytic activity/Vol] 428 U/L High [facility] Laboratory - Blood bankon ABO and Rh group Nom (Bld) Blood group A Rh(D) positive [facility] MAGNESIUMon 01-11-2022 Interpretation and review of laboratory results Normal [facility] Magnesium [Mass/Vol] 2.0 mg/dL 1.6 - 2.8 mg/dL [facility] MANUAL DIFF AND MORPHon 05-0 Band form neutrophils/100 WBC (Bld) 3 % <=10 [facility] Bands # 0.22 K/uL High <0.01 [facility] [place] cells LM Ql (Bld) Few [facility] Cells [...] Few [facility] Anisocytosis Ql (Bld) Marked [facility] [place] cells LM Ql (Bld) Few [facility] Cells [...] Abnormal [facility] No Panel Informationon 01-11 [facility] Interpretation and review of laboratory results Abnormal [facility] PROTHROMBIN TIME AND INRon 0 01-11-2022 INR Coag (PPP) [Relative time] 2.16 {INR} High [facility] Interpretation and review of laboratory results Abnormal [facility] PT Coag (PPP) [Time] 24.2 s High [facility] TYPE AND SCREENon 01-11-2022 ABO and Rh group Nom (Bld) Blood group A Rh(D) positive [facility] ABO and Rh group Nom (Bld) No Previous Results [facility] Blood group antibody screen Ql Negative [facility] Basic metabolic 2000 panelon 01-10-2022 Anion gap [Moles/Vol] 17 mmol/L [facility] Calcium [Mass/Vol] 8.6 mg/dL 8.4 - 10. 4 mg/dL [facility] Chloride [Moles/Vol] 99 mmol/L 97 - 111 mmol/L [facility] CO2 [Moles/Vol] 22 mmol/L 21 - 30 mmol/L [facility] Creatinine [Mass/Vol] 0.60 mg/dL Low 0.80 - 1.30 mg/dL [facility] GFR/1.73 sq M.predicted MDRD (S/P/Bld) [Vol rate/Area] 128 mL/min/{1.73_m2} >=60 mL/min/1.73sqm [facility] Glucose [Mass/Vol] 165 mg/dL High 68 - 110 mg/dL [facility] Interpretation and review of laboratory results Abnormal [facility] Potassium [Moles/Vol] 3.5 mmol/L 3.3 - 5.3 mmol/L [facility] Sodium [Moles/Vol] 134 mmol/L Low 135 - 148 mmol/L [facility] Urea nitrogen [Mass/Vol] 4 mg/dL Low 8 - 22 mg/dL [facility] Anion gap [Moles/Vol] 9 mmol/L Low [facility] Calcium [Mass/Vol] 8.4 mg/dL 8.4 - 10. 4 mg/dL [facility] Chloride [Moles/Vol] 101 mmol/L 97 [...] g/dL Critically low 13.9 - 16.3 g/dL [facility] Interpretation and review of laboratory [...] (PPP) [Mass/Vol] >5000 High <230 ng/mL [facility] Interpretation and review of laboratory results Abnormal [facility] EKG 12 LEAD - PERFORMon Diagnosis [facility] P wave Atrium by EKG 96 BPM [facility] P wave axis 43 degrees [facility] P-R Interval 144 ms [facility] Q-T interval 326 ms [facility] Q-T interval corrected 411 ms [facility] QRS axis 49 degrees [facility] QRS duration 92 ms [facility] T wave axis 24 degrees [facility] HAPTOGLOBINon 01-10-2022 Haptoglobin [Mass/Vol] mg/dL Low 36 - 220 mg/dL [facility] Interpretation and review of laboratory results Abnormal [facility] HEPATIC FUNCTION PANELon Albumin [Mass/Vol] 2.7 g/dL Low 3.4 - 5.1 g/dL [facility] ALP [Catalytic activity/Vol] 87 U/L [facility] ALT [Catalytic activity/Vol] 54 U/L High [facility] AST [Catalytic activity/Vol] 147 U/L High [facility] Bilirubin [Mass/Vol] 11.1 mg/dL High 0.1 - 1.5 mg/dL [facility] Bilirubin.direct [Mass/Vol] 2.60 mg/dL High 0.10 - 0.30 mg/dL [facility] Protein [Mass/Vol] 6.0 g/dL Low 6.2 - 8.3 g/dL [facility] LDHOrdered By: Jarrod cruz on 01-10-2022 Interpretation and review of laboratory results Abnormal [facility] LDH [Catalytic activity/Vol] 378 U/L High [facility] Laboratory - Microbiology an d Antimicrobial susceptibilityon 01-10-2022 RSV RNA ANGIE+probe Ql (Unsp spec) Negative Negative [facility] Laboratory - Specimen inform ationon 01-10-2022 Specimen source Nom (Unsp spec) Negative Negative [facility] MAGNESIUMon 01-10-2022 Interpretation and review of laboratory results Normal [facility] Magnesium [Mass/Vol] 1.7 mg/dL 1.6 - 2.8 mg/dL [facility] MANUAL DIFF AND MORPHon Acanthocytes LM Ql [...] [facility] Target cells LM Ql (Bld) Few [facility] No Panel Informationon 01-10 [facility] Interpretation and review of laboratory results Abnormal [facility] No Panel InformationOrdered By: Meka Morales on 01-10-2022 [facility] PARTIAL THROMBOPLASTIN TIMEo n 01-10-2022 aPTT Coag (Bld) [Time] 29 s [facility] Interpretation and review of laboratory results Normal [facility] PROTHROMBIN TIME AND INRon 0 01-10-2022 INR Coag (PPP) [Relative time] 1.79 {INR} High [facility] Interpretation and review of laboratory results Abnormal [facility] PT Coag (PPP) [Time] 20.[address] [facility] BLOOD CELL COMPONENTon 0 01-10-2022 BB Order Item Product status info to follow [facility] RESPIRATORY VIRUS PANEL, PCR on 01-10-2022 Adenovirus DNA ANGIE+probe Ql (Unsp spec) Negative Negative [facility] C. pneumoniae DNA ANGIE+probe Ql (Unsp spec) Negative Negative [facility] FLUAV H1 RNA ANGIE+probe Ql (Unsp spec) Negative Negative [facility] FLUAV H3 RNA ANGIE+probe Ql (Unsp spec) Negative Negative [facility] FLUAV RNA ANGIE+probe Ql (Unsp spec) Negative Negative [facility] FLUBV RNA ANGIE+probe Ql (Unsp spec) Negative Negative [facility] HCoV HKU1 RNA ANGIE+probe Ql (Unsp spec) Negative Negative [facility] HCoV NL63 RNA ANGIE+probe Ql (Unsp spec) Negative Negative [facility] hMPV RNA ANGIE+probe Ql (Unsp spec) Negative Negative [facility] Interpretation and review of laboratory results Normal [facility] M. pneumoniae DNA ANGIE+probe Ql (Unsp spec) Negative Negative [facility] Parainfluenza virus 1 RNA ANGIE+probe Ql (Unsp spec) Negative Negative [facility] Parainfluenza virus 2 RNA ANGIE+probe Ql (Unsp spec) Negative Negative [facility] Parainfluenza virus 3 RNA ANGIE+probe Ql (Unsp spec) Negative Negative [facility] Parainfluenza virus 4 RNA ANGIE+probe Ql (Unsp spec) Negative Negative [facility] Rhinovirus RNA ANGIE+probe Nom (Unsp spec) Negative Negative [facility] US HEP PORT SPLEN VEIN + DOP PLERon 01-10-[address] [facility] Radiology Study observation (narrative) [facility] US SPLEENon 01-10-[address] [facility] Radiology Study observation (narrative) [facility] SPLEENOrdered By: Enrique Basurto on 01-10-[address]22 [facility] Work Phone: AMMONIAon 01-09-2022 Ammonia (P) [Moles/Vol] 74 umol/L High 11 - 35 umol/L [facility] Interpretation and review of laboratory results Abnormal [facility] AUTOIMMUNE MULTIPLEX PANELon 01-09-2022 Interpretation and review of laboratory results Normal [facility] Nuclear Ab IA Ql (S) Negative Negative [facility] Basic metabolic 2000 panelon 01-09-2022 Anion gap [Moles/Vol] 10 mmol/L [facility] Calcium [Mass/Vol] 8.1 mg/dL Low 8.4 - 10. 4 mg/dL [facility] Chloride [Moles/Vol] 100 mmol/L 97 - 111 mmol/L [facility] CO2 [Moles/Vol] 27 mmol/L 21 - 30 mmol/L [facility] Creatinine [Mass/Vol] 0.41 mg/dL Low 0.80 - 1.30 mg/dL [facility] GFR/1.73 sq M.predicted MDRD (S/P/Bld) [Vol rate/Area] 143 mL/min/{1.73_m2} >=60 mL/min/1.73sqm [facility] Glucose [Mass/Vol] 142 mg/dL High 68 - 110 mg/dL [facility] Potassium [Moles/Vol] 4.0 mmol/L 3.3 - 5.3 mmol/L [facility] Sodium [Moles/Vol] 133 mmol/L Low 135 - 148 mmol/L [facility] Urea nitrogen [Mass/Vol] 7 mg/dL Low 8 - 22 mg/dL [facility] CBC WITH DIFFERENTIALOrdered By: Norris Billings on [...] Interpretation and review of laboratory results Abnormal [facility] HEPATIC FUNCTION PANELon Albumin [Mass/Vol] 2.7 g/dL Low 3.4 - 5.1 g/dL [facility] ALP [Catalytic activity/Vol] 92 U/L [facility] ALT [Catalytic activity/Vol] 47 U/L High [facility] AST [Catalytic activity/Vol] 124 U/L High [facility] Bilirubin [Mass/Vol] 11.2 mg/dL High 0.1 - 1.5 mg/dL [facility] Bilirubin.direct [Mass/Vol] 2.50 mg/dL High 0.10 - 0.30 mg/dL [facility] Protein [Mass/Vol] 6.0 g/dL Low 6.2 - 8.3 g/dL [facility] HIV 1 and 2 Ab and HIV 1 p24 Ag panel IAon 01-09-2022 HIV 1+2 Ab+HIV1 p24 Ag IA Ql Non-Reactive Non-Reactive [facility] Interpretation and review of laboratory results Normal [facility] Lipid 1996 panelon 2 Cholesterol [Mass/Vol] [...] <151 [facility] MANUAL DIFF AND MORPHon 05-0 Anisocytosis Ql (Bld) Moderate [facility] [place] cells LM Ql (Bld) Few [facility] Cells Counted Total (Bld) [#] [facility] Dacrocytes LM Ql (Bld) Few [facility] Macrocytes Ql (Bld) Slight [facility] Ovalocytes LM Ql (Bld) Moderate [facility] Polychromasia LM Ql (Bld) Slight [facility] Schistocytes LM Ql (Bld) Few [facility] Target cells LM Ql (Bld) Few [facility] Anisocytosis Ql (Bld) Marked [facility] [place] cells LM Ql (Bld) Few [facility] Cells Counted Total (Bld) [#] [facility] Macrocytes Ql (Bld) Slight [facility] Ovalocytes LM Ql (Bld) Many [facility] Polychromasia LM Ql (Bld) Slight [facility] RBC.hypochromic/100 RBC Auto (Bld) Slight [facility] Schistocytes LM Ql (Bld) Few [facility] Target cells LM Ql (Bld) Few [facility] No Panel InformationOrdered By: Norris Billings on 01-09-2022 [facility] No Panel InformationOrdered By: Mi Alcazar on 01-09-2022 [facility] No Panel Informationon 01-09 Interpretation and review of laboratory results Abnormal [facility] PROTHROMBIN TIME AND INRon 0 01-09-2022 INR Coag (PPP) [Relative time] 1.94 {INR} High [facility] Interpretation and review of laboratory results Abnormal [facility] PT Coag (PPP) [Time] 21.[address] RED BLOOD CELL COMPONENTon 0 01-09-2022 BB Order Item Product status info to follow [facility] THYROXINE (T4), FREEon 01-09 Free T4 [Mass/Vol] 0.88 ng/dL 0.45 - 1. 80 ng/dL [facility] Interpretation and review of laboratory results Normal [facility] XR ABDOMEN 1 VIEW APon 01-09 RADIOLOGY [facility] Radiology Study observation (narrative) [facility] XR ABDOMEN 1 VIEW APOrdered By: Ulysses Omalley on 01-09-2022 [facility] Work Phone: ACETAMINOPHENon 01-08-2022 Acetaminophen [Mass/Vol] ug/mL 10 - 20 ug/mL [facility] Interpretation and review of laboratory results Normal [facility] ANTIBODY ID ELUTED-LAB ONLYo n 01-08-2022 Blood group antibody screen Elution Ql Negative [facility] Basic metabolic 2000 panelon 01-08-2022 Anion gap [Moles/Vol] 16 mmol/L [facility] Calcium [Mass/Vol] 8.1 mg/dL Low 8.4 - 10. 4 mg/dL [facility] Chloride [Moles/Vol] 95 mmol/L Low [...] antiglobulin test.complement specific reagent Ql (RBC) Negative [facility] Direct antiglobulin test.IgG specific reagent (RBC) [Interp] Positive [facility] Direct antiglobulin test.poly specific reagent Ql (RBC) Positive [facility] EKG 12 LEAD - PERFORMon Diagnosis [facility] P wave Atrium by EKG 76 BPM [facility] Presbyterianeal P wave axis 46 degrees [facility] P-R Interval 132 ms [facility] Q-T interval 422 ms [facility] Q-T interval corrected 474 ms [facility] QRS axis 44 degrees [facility] QRS duration 86 ms [facility] T wave axis 22 degrees [facility] FERRITINon 01-08-2022 Ferritin [Mass/Vol] 829.1 ng/mL High 11.5 - 3 00.0 ng/mL [facility] Interpretation and review of laboratory results Abnormal [facility] FOLIC ACIDon 01-08-2022 Folate [Mass/Vol] 13.9 ng/mL 5.9 - 24.7 ng/mL [facility] Interpretation and review of laboratory results Normal [facility] GLUCOSE, FINGERSTICK-IN OFFI CEon 01-08-2022 Glucose [Mass/Vol] 94 mg/dL 68 - 110 mg/dL [facility] Interpretation and review of laboratory results Normal [facility] HAPTOGLOBINon 01-08-2022 Haptoglobin [Mass/Vol] mg/dL Low 36 - 220 mg/dL [facility] Interpretation and review of laboratory results Abnormal [facility] HCV Ab IA Qn (S)on 2 HCV Ab Ql (S) Non-Reactive Nonreactive [facility] Interpretation and review of laboratory results Normal [facility] HEPATIC FUNCTION PANELon Albumin [Mass/Vol] 2.9 g/dL Low 3.4 - 5.1 g/dL [facility] ALP [Catalytic activity/Vol] 121 U/L [facility] ALT [Catalytic activity/Vol] 50 U/L High [facility] AST [Catalytic activity/Vol] 129 U/L High [facility] Bilirubin [Mass/Vol] 11.1 mg/dL High 0.1 - 1.5 mg/dL [facility] Bilirubin.direct [Mass/Vol] 2.40 mg/dL High 0.10 - 0.30 mg/dL [facility] Protein [Mass/Vol] 6.4 g/dL 6.2 - 8.3 g/dL [facility] HEPATITIS A IGM ANTIBODYon 0 01-08-2022 HAV IgM IA Ql Non-Reactive Nonreactive [facility] Interpretation and review of laboratory results Normal [facility] HEPATITIS A TOTAL ANTIBODYon 01-08-2022 HAV Ab IA Ql (S) Reactive Abnormal Nonreactive [facility] Interpretation and review of laboratory results Abnormal [facility] HEPATITIS B CORE ANTIBODYon 01-08-2022 HBV core Ab Ql (S) Non-Reactive Nonreactive [facility] Interpretation and review of laboratory results Normal [facility] HEPATITIS B SURFACE ANTIBODY on 01-08-2022 HBV surface Ab IA Qn m[IU]/mL mIU/mL [facility] HEPATITIS B SURFACE ANTIGENo n 01-08-2022 HBV surface Ag Ql (S) Non-Reactive Non-Reactive [facility] Interpretation and review of laboratory results Normal [facility] IRON AND TIBCon 01-08-2022 Interpretation and review of laboratory results Abnormal [facility] Iron [Mass/Vol] 145 ug/dL 45 - 160 ug/dL [facility] Iron binding capacity [Mass/Vol] 214 ug/mL Low 250 - 410 ug/mL [facility] Iron saturation [Mass fraction] 68 % High 20 - 55 % [facility] Transferrin [Mass/Vol] 153 mg/dL Low 210 - 375 mg/dL [facility] LACTIC ACIDOrdered By: Arnol kowalski on 01-08-2022 Interpretation and review of laboratory results Normal [facility] Lactate [Moles/Vol] 1.1 mmol/L 0.5 - 2. 0 mmol/L [facility] LDHOrdered By: Yaritza staton on 01-08-2022 Interpretation and review of laboratory results Abnormal [facility] LDH [Catalytic activity/Vol] 369 U/L High [facility] MAGNESIUMon 01-08-2022 Interpretation and review of laboratory results Normal [facility] Magnesium [Mass/Vol] 1.7 mg/dL 1.6 - 2.8 mg/dL [facility] MANUAL DIFF AND MORPHon 05- Anisocytosis Ql (Bld) Marked [facility] Cells Counted Total (Bld) [#] [facility] Macrocytes Ql (Bld) Slight [facility] Polychromasia LM Ql (Bld) Slight [facility] Acanthocytes LM Ql (Bld) Few [facility] [place] cells LM Ql (Bld) Few [facility] Cells Counted Total (Bld) [#] [facility] Macrocytes Ql (Bld) Slight [facility] Polychromasia LM Ql (Bld) Slight [facility] No Panel InformationOrdered By: Fiorella Cochran on 01-08-2022 [facility] No Panel Informationon 01-08 Interpretation and review of laboratory results Abnormal [facility] No Panel InformationOrdered By: Rafy Carr on 01-08-2022 [facility] Panel InformationOrdered By: Crow Werner on 01-08-2022 [facility] Work Phone: PROTHROMBIN TIME AND INRon 0 01-08-2022 INR Coag (PPP) [Relative time] 1.78 {INR} High [facility] Interpretation and review of laboratory results [facility]normal [facility] PT Coag (PPP) [Time] 20.0 s High [facility] RETICULOCYTE COUNTOrdered By : Deborah Che on 01-08-2022 Immature reticulocytes/Total reticulocytes (Bld) 0.56 % High [facility] Interpretation and review of laboratory results Abnormal [facility] Reticulocytes (Bld) [#/Vol] 0.10 10*3/uL High [facility] Reticulocytes/100 RBC (Bld) 5.2 % High 0.5 - 1.5 % [facility] TSHon 01-08-2022 Interpretation and review of laboratory results Abnormal [facility] TSH Qn 6.627 m[IU]/L [facility] US ASCITES SURVEY 4 QUADRANT Son 01-08-[address] [facility] Radiology Study observation (narrative) [facility] ASCITES SURVEY 4 QUADRANT SOrdered By: Loreta Rizzo on 01-08-2022 [facility] US LIVER/GALL BLADDER/PANCRE ASon 01-08-[address] [facility] Radiology Study observation (narrative) [facility] VITAMIN B12 (CYANOCOBALAMIN) on 01-08-2022 Cobalamin (Vitamin B12) [Moles/Vol] 1299 pg/mL >300 [facility] Interpretation and review of laboratory results Normal [facility] XR ELBOW LEFT MINIMUM 3 VIEW Son 01-08-2022 Radiology Study observation (narrative) [facility] XR HUMERUS LEFTon 01-08-2022 Radiology Study observation (narrative) [facility] XR ORBITSon 01-08-2022 RADIOLOGY [facility] Radiology Study observation (narrative) [facility] XR ORBITSOrdered By: Philipp Salgado on 01-08-2022 [facility] Work Phone: BLOOD BANKOrdered By: Destiny Mark [...] Calcium [Mass/Vol] 8.3 mg/dL Low 8.9 - 11. 1 mg/dL [facility] Remisol Chloride [Moles/Vol] 97 mmol/L Low 101 - 1 11 mmol/L [facility] Remisol CO2 [Moles/Vol] 23 mmol/L Normal [...] m2 FT Chem S Globulin (S) [Mass/Vol] 3.6 g/dL [...] Present (01/07/22 9:25 AM) Normal [facility] HemeManSS WBC corrected for nucl RBC Auto [...] increase of schistocytes. No hypersegmented granulocytes seen.D64.9CPT [id number] Invalid Interpretation Code [facility] HemeManSS URINALYSISOrdered By: [...] Interpretation Code Negative [facility] UA Auto SS Colma.plasma/Lithi um.RBC (Bld) [Mass ratio] 0-3 /HPF Normal 0-3/HPF [facility] UA Auto SS Mucus Ql (Urine sed) Trace (01/07/22 12:30 PM) Normal [facility] UA Auto SS Nitrite Ql (U) Negative (01/07/22 12:30 PM) Normal Negative [facility] [place] Auto SS pH (U) 7.5 *NA* (01/07/22 12:30 PM) Invalid Interpretation Code 5.0 - 9.0 [facility] [place] Auto SS Protein (U) [Mass/Vol] Negative (01/07/22 12:30 PM) Normal Negative [facility] [place] Auto SS Specific gravity (U) [Rel density] 1.010 *NA* (01/07/22 12:30 PM) Invalid Interpretation Code 1.005 - 1.030 [facility] [place] Auto SS UA Spec Desc Clean Catch (01/07/22 12:30 PM) Normal [facility] [place] Auto SS Urobilinogen Qn (U) [id number] {Alexey'U}/dL Invalid Interpretation Code 0.0 - 1.0 EU/dL [facility] [place] Auto SS WBC Auto Ql (U) Negative (01/07/22 12:30 PM) Normal Negative [facility] [place]A Auto SS WBC LM.HPF (Urine sed) [#/Area] 0-5 /HPF Normal 0-5/HPF [facility] [place] Auto SS Vital Signs Date Time Vital Sign Value Performing Clinician Facility 01-12-2025 08:39-0400 Diastolic blood pressure 69 mm[Hg] Evelio Carr [facility] 01-12-2025 08:39-0400 Heart rate 65 /min Evelio Carr [facility] 01-12-2025 08:39-0400 Mean blood pressure 86 mm[Hg] Evelio Carr [facility] 01-12-2025 08:39-0400 Respiratory rate 16 /min Evelio Carr [facility] 01-12-2025 08:39-0400 Systolic blood pressure 119 mm[Hg] Evelio Carr [facility] 01-03-2025 11:54-0400 Heart rate 58 /min Evelio Carr [facility] 01-03-2025 11:54-0400 SaO2% (BldA) [Mass fraction] 100 % Evelio Carr [facility] 01-03-2025 11:54-0400 Diastolic blood pressure 80 mm[Hg] Evelio Carr [facility] 01-03-2025 11:54-0400 Mean blood pressure 105 mm[Hg] Evelio Carr [facility] 01-03-2025 11:54-0400 Systolic blood pressure 155 mm[Hg] Evelio Carr [facility] 01-03-2025 11:43-0400 Diastolic blood pressure 82 mm[Hg] Evelio Carr [facility] 01-03-2025 11:43-0400 Heart rate 59 /min Evelio Carr [facility] 01-03-2025 11:43-0400 SaO2% (BldA) [Mass fraction] 97 % Evelio Carr [facility] 01-03-2025 11:43-0400 Systolic blood pressure 148 mm[Hg] Evelio Carr [facility] 01-03-2025 10:52-0400 Heart rate 62 /min Evelio Carr [facility] 01-03-2025 10:52-0400 SaO2% (BldA) [Mass fraction] 100 % Evelio Carr [facility] 01-03-2025 10:52-0400 Body temperature 97.88 [degF] Evelio Carr [facility] 01-03-2025 10:50-0400 Diastolic blood pressure 83 mm[Hg] Evelio Carr [facility] 01-03-2025 10:50-0400 Mean blood pressure 100 mm[Hg] Fraser Bruno [facility] 01-03-2025 10:50-0400 Systolic blood pressure 136 mm[Hg] Evelio Crar [facility] 01-03-2025 10:49-0400 Respiratory rate 14 /min Evelio Carr [facility] 12-20-2024 08:21-0400 Diastolic blood pressure 87 mm[Hg] Sadieree Loco [facility] 12-20-2024 08:21-0400 Heart rate 69 /min Sadieree Loco [facility] 12-20-2024 08:21-0400 Mean blood pressure 106 mm[Hg] Sadieree Loco [facility] 12-20-2024 08:21-0400 Respiratory rate 14 /min Sadieree Loco [facility] 12-20-2024 08:21-0400 Systolic blood pressure 144 mm[Hg] Sadieree Loco [facility] 11-21-2024 08:32-0400 Diastolic blood pressure 79 mm[Hg] Sadieree Loco [facility] 11-21-2024 08:32-0400 Heart rate 68 /min Sadieree Loco [facility] 11-21-2024 08:32-0400 Mean blood pressure 101 mm[Hg] Sadieree Loco [facility] 11-21-2024 08:32-0400 Respiratory rate 16 /min Sadieree Loco [facility] 11-21-2024 08:32-0400 Systolic blood pressure 146 mm[Hg] Sadieree Loco [facility] 11-18-2024 09:24-0400 Diastolic blood pressure 72 mm[Hg] Martin Sarmini [facility] 11-18-2024 09:24-0400 Heart rate 65 /min Martin Sarmini [facility] 11-18-2024 09:24-0400 Mean blood pressure 91 mm[Hg] Martin Sarmini [facility] 11-18-2024 09:24-0400 Respiratory rate 20 /min Martin Sarmini [facility] 11-18-2024 09:24-0400 SaO2% (BldA) [Mass fraction] 100 % Martin Sarmini [facility] 11-18-2024 09:24-0400 Systolic blood pressure 128 mm[Hg] Martin Sarmini [facility] 11-18-2024 09:13-0400 Diastolic blood pressure 62 mm[Hg] Mratin Sarmini [facility] 11-18-2024 09:13-0400 Heart rate 63 /min Martin Sarmini [facility] 11-18-2024 09:13-0400 Mean blood pressure 79 mm[Hg] Martin Sarmini [facility] 11-18-2024 09:13-0400 Respiratory rate 13 /min Martin Sarmini [facility] 11-18-2024 09:13-0400 SaO2% (BldA) [Mass fraction] 100 % Martin Sarmini [facility] 11-18-2024 09:13-0400 Systolic blood pressure 113 mm[Hg] Martin Sarmini [facility] 11-18-2024 09:07-0400 SaO2% (BldA) [Mass fraction] 98 % Martin Sarmini [facility] 11-18-2024 09:04-0400 Blood Pressure Location Martin Sarmini [facility] 11-18-2024 09:04-0400 Body temperature 97.7 [degF] Martin Sarmini [facility] 11-18-2024 09:04-0400 Diastolic blood pressure 60 mm[Hg] Martin Sarmini [facility] 11-18-2024 09:04-0400 Heart rate 71 /min Martin Sarmini [facility] 11-18-2024 09:04-0400 Mean blood pressure 76 mm[Hg] Martin Sarmini [facility] 11-18-2024 09:04-0400 Respiratory rate 13 /min Martin Sarmini [facility] 11-18-2024 09:04-0400 Systolic blood pressure 107 mm[Hg] Martin Sarmini [facility] 11-18-2024 08:55-0400 Respiratory rate 12 /min Martin Sarmini [facility] 11-18-2024 08:21-0400 Blood Pressure Location Martin Sarmini [facility] 11-18-2024 08:21-0400 Body temperature 98.06 [degF] Martin Sarmini [facility] 10-26-2024 10:13-0500 Diastolic blood pressure 105 mm[Hg] Evelio Carr [facility] 10-26-2024 10:13-0500 Heart rate 69 /min Evelio Carr [facility] 10-26-2024 10:13-0500 Mean blood pressure 126 mm[Hg] Evelio Carr [facility] 10-26-2024 10:13-0500 Respiratory rate 14 /min Evelio Carr [facility] 10-26-2024 10:13-0500 Systolic blood pressure 169 mm[Hg] Evelio Carr [facility] 10-05-2024 09:00-0500 Blood Pressure Location Vic Sosinski [facility] 10-05-2024 09:00-0500 Diastolic blood pressure 78 mm[Hg] Vic Moserinski [facility] 10-05-2024 09:00-0500 Heart rate 78 /min Vic Moserinski [facility] [employer] 10-05-2024 09:00-0500 SaO2% (BldA) [Mass fraction] 100 % Vic Sosinski [facility] 10-05-2024 09:00-0500 Systolic blood pressure 138 mm[Hg] Vic Sosinski [facility] 09-29-2024 13:43-0500 Body temperature 98.24 [degF] [facility] 09-29-2024 13:43-0500 Diastolic blood pressure 77 mm[Hg] [facility] 09-29-2024 13:43-0500 Heart rate 74 /min [facility] 09-29-2024 13:43-0500 Mean blood pressure 96 mm[Hg] [facility] 09-29-2024 13:43-0500 Respiratory rate 16 /min [facility] 09-29-2024 13:43-0500 SaO2% (BldA) [Mass fraction] 100 % Kavon Lu [facility] 09-29-2024 13:43-0500 Systolic blood pressure 133 mm[Hg] Kavon Lu [facility] 08-19-2024 17:23-0500 Diastolic blood pressure 90 mm[Hg] Loreta Cummings [facility] 08-19-2024 17:23-0500 Mean blood pressure 113 mm[Hg] Loreta Cummings [facility] 08-19-2024 17:23-0500 Systolic blood pressure 160 mm[Hg] Loreta Cummings [facility] 08-19-2024 15:27-0500 Blood Pressure Location Loreta Cummings [facility] 08-19-2024 15:27-0500 Body temperature 98.42 [degF] Loreta Cummings [facility] 08-19-2024 15:27-0500 Diastolic blood pressure 68 mm[Hg] Loreta Cummings [facility] 08-19-2024 15:27-0500 Heart rate 70 /min Loreta Cummings [facility] 08-19-2024 15:27-0500 Respiratory rate 18 /min Loreta Cummings [facility] 08-19-2024 15:27-0500 Systolic blood pressure 146 mm[Hg] Loreta Cummings [facility] 06-09-2024 13:26-0400 Blood Pressure Location Mario Evans [facility] 06-09-2024 13:26-0400 Diastolic blood pressure 77 mm[Hg] Martin Sarmini [facility] 06-09-2024 13:26-0400 Heart rate 72 /min Martin Sarmini [facility] 06-09-2024 13:26-0400 Systolic blood pressure 127 mm[Hg] Martin Sarmini [facility] 05-12-2024 15:35-0400 Blood Pressure Location Martin Sarmini [facility] 05-12-2024 15:35-0400 Diastolic blood pressure 72 mm[Hg] Martin Sarmini [facility] 05-12-2024 15:35-0400 Heart rate 77 /min Martin Sarmini [facility] 05-12-2024 15:35-0400 Systolic blood pressure 114 mm[Hg] Martin Sarmini [facility] 05-12-2024 09:36-0400 Body height 170.2 cm Radha Bertrand MD Work Phone: [facility] 05-12-2024 09:36-0400 Body mass index (BMI) [Ratio] 25.56 kg/m2 Radha Bertrand MD Work Phone: [facility] 05-12-2024 09:36-0400 Body weight 74.03 kg Radha Bertrand MD Work Phone: [facility] 05-12-2024 09:36-0400 Diastolic blood pressure 76 mm[Hg] Radha Bertrand MD Work Phone: [facility] 05-12-2024 09:36-0400 Heart rate 65 /min Radha Bertrand MD Work Phone: [facility] 05-12-2024 09:36-0400 SaO2% (BldA) [Mass fraction] 97 % Radha Bertrand MD Work Phone: [facility] 05-12-2024 09:36-0400 Systolic blood pressure 132 mm[Hg] Radha Bertrand MD Work Phone: [facility] 05-11-2024 09:08-0400 Body temperature 98.06 [degF] [facility] 05-11-2024 09:08-0400 Diastolic blood pressure 58 mm[Hg] [facility] 05-11-2024 09:08-0400 Heart rate 71 /min [facility] 05-11-2024 09:08-0400 Mean blood pressure 80 mm[Hg] [facility] 05-11-2024 09:08-0400 Respiratory rate 16 /min [facility] 05-11-2024 09:08-0400 SaO2% (BldA) [Mass fraction] 100 % [facility] 05-11-2024 09:08-0400 Systolic blood pressure 123 mm[Hg] [facility] 04-29-2024 09:05-0400 Blood Pressure Location Loreta Cummings [facility] 04-29-2024 09:05-0400 Body temperature 98.24 [degF] Loreta Cummings [facility] 04-29-2024 09:05-0400 Diastolic blood pressure 76 mm[Hg] Loreta Cummings [facility] 04-29-2024 09:05-0400 Heart rate 90 /min Loreta Cummings [facility] 04-29-2024 09:05-0400 Respiratory rate 18 /min Loreta Cummings [facility] 04-29-2024 09:05-0400 SaO2% (BldA) [Mass fraction] 99 % Loreta John [facility] 04-29-2024 09:05-0400 Systolic blood pressure 134 mm[Hg] Loreta John [facility] 04-21-2024 14:24-0400 Body height 170.[address] [facility] [address] [facility] 04-21-2024 14:24-0400 Body mass index (BMI) [Ratio] 24.28 kg/m2 [facility] 04-21-2024 14:24-0400 Body weight 70.[address] [facility] [address] [facility] 04-14-2024 08:37-0400 Body height 170.2 cm Radha Bertrand MD Work Phone: [facility] 04-14-2024 08:37-0400 Body mass index (BMI) [Ratio] 24.28 kg/m2 Radha Bertrand MD Work Phone: [facility] 04-14-2024 08:37-0400 Body weight 70.31 kg Radha Bertrand MD Work Phone: [facility] 04-14-2024 08:37-0400 Diastolic blood pressure 80 mm[Hg] Radha Bertrand MD Work Phone: [facility] 04-14-2024 08:37-0400 Heart rate 95 /min Radha Bertrand MD Work Phone: [facility] 04-14-2024 08:37-0400 SaO2% (BldA) [Mass fraction] 99 % Radha Bertrand MD Work Phone: [facility] 04-14-2024 08:37-0400 Systolic blood pressure 162 mm[Hg] Radha Bertrand MD Work Phone: [facility] 03-17-2024 14:22-0400 Blood Pressure Location Marc Ornelasdarlin [facility] 03-17-2024 14:22-0400 Diastolic blood pressure 82 mm[Hg] Marc Cecinus [facility] 03-17-2024 14:22-0400 Heart rate 66 /min Marc Cecinus [facility] 03-17-2024 14:22-0400 Respiratory rate 16 /min Marc Cecinus [facility] 03-17-2024 14:22-0400 SaO2% (BldA) [Mass fraction] 99 % Marc Cecinus [facility] 03-17-2024 14:22-0400 Systolic blood pressure 140 mm[Hg] Marc Cecinus [facility] 03-14-2024 09:29-0400 Body temperature 98.6 [degF] Ella Gonzales [facility] 03-14-2024 09:29-0400 Diastolic blood pressure 78 mm[Hg] Ella Gonzales [facility] 03-14-2024 09:29-0400 Heart rate 68 /min Ella Mohanke [facility] 03-14-2024 09:29-0400 Mean blood pressure 96 mm[Hg] Ella Mohanke [facility] 03-14-2024 09:29-0400 Respiratory rate 18 /min Ella Mohanke [facility] 03-14-2024 09:29-0400 SaO2% (BldA) [Mass fraction] 100 % Ella Mohanke [facility] [facility] 03-14-2024 09:29-0400 Systolic blood pressure 131 mm[Hg] Ella Mohanke [facility] 02-25-2024 09:10-0400 Body temperature 97.88 [degF] Ella Gonzales [facility] 02-25-2024 09:10-0400 Diastolic blood pressure 75 mm[Hg] Ella Gonzales [facility] 02-25-2024 09:10-0400 Heart rate 76 /min Ella Gonzales [facility] 02-25-2024 09:10-0400 Mean blood pressure 94 mm[Hg] Ella Gonzales [facility] 02-25-2024 09:10-0400 Respiratory rate 18 /min Ella Gonzales [facility] 02-25-2024 09:10-0400 SaO2% (BldA) [Mass fraction] 100 % Ella Gonzales [facility] 02-25-2024 09:10-0400 Systolic blood pressure 132 mm[Hg] Ella Gonzales [facility] 01-27-2024 09:42-0400 Blood Pressure Location Loreta Cummings [facility] 01-27-2024 09:42-0400 Body temperature 97.7 [degF] Loreta Cummings [facility] 01-27-2024 09:42-0400 Diastolic blood pressure 62 mm[Hg] Loreta Cummings [facility] 01-27-2024 09:42-0400 Heart rate 72 /min Loreta Cummings [facility] 01-27-2024 09:42-0400 Respiratory rate 14 /min Loreta Cummings [facility] 01-27-2024 09:42-0400 SaO2% (BldA) [Mass fraction] 99 % Loreta Cummings [facility] 01-27-2024 09:42-0400 Systolic blood pressure 130 mm[Hg] Loreta Cummings [facility] 12-23-2023 10:57-0400 Blood Pressure Location Loreta Cummings [facility] 12-23-2023 10:57-0400 Body temperature 97.7 [degF] Loreta Cummings [facility] 12-23-2023 10:57-0400 Diastolic blood pressure 62 mm[Hg] Loreta Cummings [facility] 12-23-2023 10:57-0400 Heart rate 76 /min Loreta Cummings [facility] 12-23-2023 10:57-0400 Respiratory rate 16 /min Loreta Cummings [facility] 12-23-2023 10:57-0400 SaO2% (BldA) [Mass fraction] 100 % Loreta Cummings [facility] 12-23-2023 10:57-0400 Systolic blood pressure 132 mm[Hg] Loreta Cummings [facility] 12-13-2023 11:54-0400 [facility] 12-13-2023 11:54-0400 Promise [facility] 12-13-2023 11:12-0400 Heart rate 81 /min [facility] 12-13-2023 11:12-0400 SaO2% (BldA) [Mass fraction] 100 % [facility] 12-13-2023 11:11-0400 Diastolic blood pressure 75 mm[Hg] [facility]d [facility] 12-13-2023 11:11-0400 Mean blood pressure 93 mm[Hg] [facility] 12-13-2023 11:11-0400 Systolic blood pressure 128 mm[Hg] [facility] 12-13-2023 11:11-0400 Body temperature 97.88 [degF] [facility] 12-13-2023 10:31-0400 Hourly Rounding [facility] 12-13-2023 10:31-0400 Promise to Return [facility] 12-13-2023 09:26-0400 Hourly Rounding [facility] 12-13-2023 09:26-0400 [facility] 12-13-2023 07:12-0400 Heart rate 87 /min [facility] 12-13-2023 07:12-0400 SaO2% (BldA) [Mass fraction] 100 % [facility] 12-13-2023 07:11-0400 Diastolic blood pressure 68 mm[Hg] [facility] 12-13-2023 07:11-0400 Mean blood pressure 85 mm[Hg] [facility] 12-13-2023 07:11-0400 Systolic blood pressure 119 mm[Hg] [facility] 12-13-2023 07:11-0400 Body temperature 98.96 [degF] [facility] 12-13-2023 00:49-0400 Blood Pressure Location [facility] 12-13-2023 00:49-0400 Body temperature 98.78 [degF] [facility]ad [facility] 12-13-2023 00:49-0400 Diastolic blood pressure 73 mm[Hg] [facility] 12-13-2023 00:49-0400 Heart rate 100 /min [facility] 12-13-2023 00:49-0400 Mean blood pressure 95 mm[Hg] [facility] 12-13-2023 00:49-0400 Systolic blood pressure 138 mm[Hg] Ahmad [facility] 12-12-2023 20:21-0400 Mean blood pressure 84 mm[Hg] [facility] 12-12-2023 04:00-0400 Mean blood pressure 86 mm[Hg] [facility] 12-12-2023 04:00-0400 Respiratory rate 16 /min mad [facility] 12-11-2023 23:41-0400 Blood Pressure Location [facility] 12-11-2023 23:41-0400 Mean blood pressure 81 mm[Hg] [facility] 12-11-2023 14:17-0400 Body temperature 98.06 [degF] [facility] 12-11-2023 14:17-0400 Heart rate 66 /min mad [facility] 12-11-2023 14:04-0400 Respiratory rate 18 /min mad [facility] 12-11-2023 13:30-0400 Respiratory rate 18 /min mad [facility] 12-11-2023 09:08-0400 Body temperature 97.7 [degF] [facility] 12-11-2023 09:08-0400 Heart rate 76 /min [facility] 11-11-2023 16:50-0500 Blood Pressure Location Mario Evans [facility] 11-11-2023 16:50-0500 Body temperature 98.06 [degF] Martin Sarmini [facility] 11-11-2023 16:50-0500 Diastolic blood pressure 83 mm[Hg] Martin Sarmini [facility] 11-11-2023 16:50-0500 Heart rate 60 /min Martin Sarmini [facility] 11-11-2023 16:50-0500 Mean blood pressure 105 mm[Hg] Martin Sarmini [facility] 11-11-2023 16:50-0500 Respiratory rate 12 /min Martin Sarmini [facility] 11-11-2023 16:50-0500 SaO2% (BldA) [Mass fraction] 100 % Martin Sarmini [facility] 11-11-2023 16:50-0500 Systolic blood pressure 149 mm[Hg] Martin Sarmini [facility] 11-11-2023 16:40-0500 Blood Pressure Location Martin Sarmini [facility] 11-11-2023 16:40-0500 Diastolic blood pressure 81 mm[Hg] Martin Sarmini [facility] 11-11-2023 16:40-0500 Heart rate 63 /min Martin Sarmini [facility] 11-11-2023 16:40-0500 Mean blood pressure 101 mm[Hg] Martin Sarmini [facility] 11-11-2023 16:40-0500 Respiratory rate 17 /min Martin Sarmini [facility] 11-11-2023 16:40-0500 SaO2% (BldA) [Mass fraction] 100 % Martin Sarmini [facility] 11-11-2023 16:40-0500 Systolic blood pressure 140 mm[Hg] Martin Sarmini [facility] 11-11-2023 16:35-0500 Blood Pressure Location Martin Sarmini [facility] 11-11-2023 16:35-0500 Diastolic blood pressure 75 mm[Hg] Martin Sarmini [facility] 11-11-2023 16:35-0500 Heart rate 74 /min Martin Sarmini [facility] 11-11-2023 16:35-0500 Mean blood pressure 96 mm[Hg] Martin Sarmini [facility] 11-11-2023 16:35-0500 Respiratory rate 14 /min Martin Sarmini [facility] 11-11-2023 16:35-0500 SaO2% (BldA) [Mass fraction] 100 % Martin Sarmini [facility] 11-11-2023 16:35-0500 Systolic blood pressure 138 mm[Hg] Martin Sarmini [facility] 11-11-2023 16:25-0500 Body temperature 98.24 [degF] Martin Sarmini [facility] 11-11-2023 16:20-0500 Respiratory rate 18 /min Martin Sarmini [facility] 11-11-2023 16:15-0500 Respiratory rate 19 /min Mario Gouldmini [facility] 11-11-2023 14:32-0500 Body temperature 97.16 [degF] Martin Bryannamini [facility] 10-28-2023 09:31-0500 Blood Pressure Location Loreta Cummings [facility] 10-28-2023 09:31-0500 Body temperature 97.88 [degF] Loreta Cummings [facility] 10-28-2023 09:31-0500 Diastolic blood pressure 70 mm[Hg] Loreta Cummings [facility] 10-28-2023 09:31-0500 Heart rate 76 /min Loreta Cummings [facility] 10-28-2023 09:31-0500 Respiratory rate 16 /min Loreta Cummings [facility] 10-28-2023 09:31-0500 SaO2% (BldA) [Mass fraction] 100 % Loreta Cummings [facility] 10-28-2023 09:31-0500 Systolic blood pressure 130 mm[Hg] Loreta Cummings [facility] 09-21-2023 14:24-0500 Blood Pressure Location Keith Patricia [facility] 09-21-2023 14:24-0500 Body temperature 98.06 [degF] Keith Patricia [facility] 09-21-2023 14:24-0500 Diastolic blood pressure 78 mm[Hg] Keith Patricia [facility] 09-21-2023 14:24-0500 Heart rate 73 /min Keith Patricia [facility] 09-21-2023 14:24-0500 Respiratory rate 18 /min Keith Patricia [facility] 09-21-2023 14:24-0500 SaO2% (BldA) [Mass fraction] 99 % Keith Patricia [facility] 09-21-2023 14:24-0500 Systolic blood pressure 156 mm[Hg] Keith Harshad [facility] 09-01-2023 12:16-0500 Diastolic blood pressure 80 mm[Hg] Martin Sarmini [facility] 09-01-2023 12:16-0500 Mean blood pressure 100 mm[Hg] Martin Sarmini [facility] 09-01-2023 12:16-0500 Systolic blood pressure 140 mm[Hg] Martin Sarmini [facility] 09-01-2023 12:12-0500 Blood Pressure Location Martin Sarmini [facility] 09-01-2023 12:12-0500 Diastolic blood pressure 82 mm[Hg] Martin Sarmini [facility] 09-01-2023 12:12-0500 Heart rate 80 /min Martin Sarmini [facility] 09-01-2023 12:12-0500 Respiratory rate 18 /min Martin Sarmini [facility] 09-01-2023 12:12-0500 Systolic blood pressure 142 mm[Hg] Mario Evans [facility] 08-26-2023 09:34-0500 Blood Pressure Location Loreta Cummings [facility] 08-26-2023 09:34-0500 Diastolic blood pressure 88 mm[Hg] Loreta Cummings [facility] 08-26-2023 09:34-0500 Heart rate 71 /min Loreta Cummings [facility] 08-26-2023 09:34-0500 Respiratory rate 18 /min Loreta Cummings [facility] 08-26-2023 09:34-0500 SaO2% (BldA) [Mass fraction] 100 % Loreta Cummings [facility] 08-26-2023 09:34-0500 Systolic blood pressure 150 mm[Hg] Loreta Cummings [facility] 07-24-2023 07:37-0500 Blood Pressure Location Loreta Cummings [facility] 07-24-2023 07:37-0500 Diastolic blood pressure 76 mm[Hg] Loreta Cummings [facility] 07-24-2023 07:37-0500 Heart rate 79 /min Loreta Cummings [facility] 07-24-2023 07:37-0500 Respiratory rate 16 /min Loreta Cummings [facility] 07-24-2023 07:37-0500 SaO2% (BldA) [Mass fraction] 100 % Loreta John [facility] 07-24-2023 07:37-0500 Systolic blood pressure 132 mm[Hg] Loreta Cummings [facility] 06-19-2023 12:23-0400 Body temperature 97.88 [degF] Teddy Luna [facility] 06-19-2023 12:23-0400 Diastolic blood pressure 105 mm[Hg] Teddy Luna [facility] 06-19-2023 12:23-0400 Heart rate 70 /min Teddy Luna [facility] 06-19-2023 12:23-0400 Respiratory rate 18 /min Teddy Luna [facility] 06-19-2023 12:23-0400 SaO2% (BldA) [Mass fraction] 98 % Teddy Luna [facility] 06-19-2023 12:23-0400 Systolic blood pressure 165 mm[Hg] Teddy Luna [facility] 04-24-2023 11:00-0400 Body height 170.18 cm Jarrod Eddy Other [employer] [facility] [employer] Other 04-24-2023 11:00-0400 Body mass index (BMI) [Ratio] 26.94 kg/m2 Jarrod Eddy Other [employer] Other 04-24-2023 11:00-0400 Body temperature 97.4 [degF] Jarrod Eddy Other [employer] Other 04-24-2023 11:00-0400 Body weight 78.02 kg Jarrod Eddy Other [employer] Other 04-24-2023 11:00-0400 Diastolic blood pressure 70 mm[Hg] Jarrod Eddy Other [employer] Other 04-24-2023 11:00-0400 SaO2% (BldA) [Mass fraction] 99 % Jarrod Eddy Other [employer] Other 04-24-2023 11:00-0400 Systolic blood pressure 138 mm[Hg] Jarrod Dillarddanish Other [employer] Other 04-21-2023 09:38-0400 Body height 170.2 cm Tanvir Black MD Work Phone: [employer] 04-21-2023 09:38-0400 Body mass index (BMI) [Ratio] 27.08 kg/m2 Tanvir Black MD Work Phone: [employer] 04-21-2023 09:38-0400 Body temperature 97.7 [degF] Tanvir Black MD Work Phone: [employer] 04-21-2023 09:38-0400 Body weight 78.43 kg Tanvir Black MD Work Phone: [employer] 04-21-2023 09:38-0400 Diastolic blood pressure 67 mm[Hg] Tanvir Black MD Work Phone: [employer] 04-21-2023 09:38-0400 Heart rate 79 /min Tanvir Black MD Work Phone: [employer] 04-21-2023 09:38-0400 Respiratory rate 20 /min Tanvir Black MD Work Phone: [employer] 04-21-2023 09:38-0400 SaO2% (BldA) [Mass fraction] 100 % Tanvir Black MD Work Phone: [facility] 04-21-2023 09:38-0400 Systolic blood pressure 136 mm[Hg] Tanvir Paul MULTANI Work Phone: [facility] 03-22-2023 21:05-0400 Diastolic blood pressure 80 mm[Hg] Martin Mary Ann [facility] 03-22-2023 21:05-0400 Heart rate 88 /min Martin Mary Ann [facility] 03-22-2023 21:05-0400 Hourly Rounding Martin Mary Ann [facility] 03-22-2023 21:05-0400 Promise to Return Martin Mary Ann [facility] 03-22-2023 21:05-0400 Respiratory rate 18 /min Martin Mary Ann [facility] 03-22-2023 21:05-0400 SaO2% (BldA) [Mass fraction] 100 % Martin Mary Ann [facility] 03-22-2023 21:05-0400 Systolic blood pressure 148 mm[Hg] Martin Mary Ann [facility] 03-22-2023 20:07-0400 Body temperature 97.7 [degF] Martin Mary Ann [facility] 03-22-2023 20:07-0400 Diastolic blood pressure 84 mm[Hg] Martin Mary Ann [facility] 03-22-2023 20:07-0400 Heart rate 92 /min Martin Mary Ann [facility] 03-22-2023 20:07-0400 Respiratory rate 18 /min Martin Mary Ann [facility] 03-22-2023 20:07-0400 SaO2% (BldA) [Mass fraction] 100 % Martin Reese [facility] 03-22-2023 20:07-0400 Systolic blood pressure 151 mm[Hg] Martin Reese [facility] 02-18-2023 09:11-0400 Diastolic blood pressure 70 mm[Hg] Brent Sanches [facility] 02-18-2023 09:11-0400 Heart rate 82 /min Brent Myron [facility] 02-18-2023 09:11-0400 Mean blood pressure 91 mm[Hg] Brent Myron [facility] 02-18-2023 09:11-0400 Respiratory rate 16 /min Brent Myron [facility] 02-18-2023 09:11-0400 SaO2% (BldA) [Mass fraction] 98 % Brent Myron [facility] 02-18-2023 09:11-0400 Systolic blood pressure 132 mm[Hg] Brent Myron [facility] 02-18-2023 07:45-0400 Body temperature 98.96 [degF] Brent Myron [facility] 02-18-2023 07:45-0400 Diastolic blood pressure 80 mm[Hg] Brent Myron [facility] 02-18-2023 07:45-0400 Heart rate 95 /min Brent Myron [facility] 02-18-2023 07:45-0400 Respiratory rate 16 /min Brent Myron [facility] 02-18-2023 07:45-0400 SaO2% (BldA) [Mass fraction] 100 % Brent Myron [facility] 02-18-2023 07:45-0400 Systolic blood pressure 153 mm[Hg] Brent Sanches [facility] 01-20-2023 12:00-0400 Diastolic blood pressure 71 mm[Hg] 1 [facility] 01-20-2023 12:00-0400 Heart rate 78 /min 1 [facility] 01-20-2023 12:00-0400 Respiratory rate 16 /min 1 [facility] 01-20-2023 12:00-0400 SaO2% (BldA) [Mass fraction] 94 % 1 [facility] 01-20-2023 12:00-0400 Systolic blood pressure 118 mm[Hg] 1 [facility] 01-20-2023 07:30-0400 Body temperature 98.71 [degF] 1 [facility] 01-12-2023 09:49-0400 Body height 170.2 cm [facility]vir Black [facility] 01-12-2023 09:49-0400 Body mass index (BMI) [Ratio] 27.28 kg/m2 Tanvir Black MD Work Phone: [employer] 01-12-2023 09:49-0400 Body temperature 96.6 [degF] Tanvir Black MD Work Phone: [employer] 01-12-2023 09:49-0400 Body weight 79.02 kg Tanvir Black [facility] 01-12-2023 09:49-0400 Diastolic blood pressure 56 mm[Hg] Tanvir Black MD Work Phone: [employer] 01-12-2023 09:49-0400 Heart rate 79 /min Tanvir Black MD Work Phone: [employer] 01-12-2023 09:49-0400 Respiratory rate 20 /min Tanvir Black MD Work Phone: [employer] 01-12-2023 09:49-0400 SaO2% (BldA) [Mass fraction] 100 % Tanvir Black MD Work Phone: [employer] 01-12-2023 09:49-0400 Systolic blood pressure 121 mm[Hg] Tanvir Black [facility] 01-12-2023 08:58-0400 Body mass index (BMI) [Ratio] 27.41 kg/m2 Marcello Ibanez MD Work Phone: [employer] 01-12-2023 08:58-0400 Body temperature 96.6 [degF] Marcello Ibanez MD Work Phone: [employer] 01-12-2023 08:58-0400 Body weight 79.38 kg Marcello Ibanez MD Work Phone: [employer] 01-12-2023 08:58-0400 Diastolic blood pressure 56 mm[Hg] Marcello Ibanez MD Work Phone: [employer] 01-12-2023 08:58-0400 Heart rate 79 /min Marcello Ibanez MD Work Phone: [employer] 01-12-2023 08:58-0400 Systolic blood pressure 121 mm[Hg] Marcello Ibanez MD Work Phone: [employer] 12-16-2022 09:49-0400 Body height 170.2 cm Dejuan Lechuga MD [facility] 12-16-2022 09:49-0400 Body mass index (BMI) [Ratio] 28.05 kg/m2 Dejuan Lechuga MD Work Phone: [employer] 12-16-2022 09:49-0400 Body weight 81.24 kg Dejuan Lechuga MD Work Phone: [employer] 12-16-2022 09:49-0400 Diastolic blood pressure 57 mm[Hg] Dejuan Lechuga MD Work Phone: [employer] 12-16-2022 09:49-0400 Heart rate 85 /min Dejuan Lechuga MD Work Phone: [employer] 12-16-2022 09:49-0400 SaO2% (BldA) [Mass fraction] 100 % Dejuan Lechuga MD Work Phone: [employer] 12-16-2022 09:49-0400 Systolic blood pressure 113 mm[Hg] Dejuan Lechuga MD Work Phone: [employer] 11-13-2022 11:23-0500 Body mass index (BMI) [Ratio] 26.63 kg/m2 Tanvir Black MD Work Phone: [employer] 11-13-2022 11:23-0500 Body temperature 98.6 [degF] Tanvir Black MD Work Phone: [employer] 11-13-2022 11:23-0500 Body weight 77.11 kg Tanvir Black MD Work Phone: [employer] 11-13-2022 11:23-0500 Diastolic blood pressure 62 mm[Hg] Tanvir Black MD Work Phone: [employer] 11-13-2022 11:23-0500 Heart rate 86 /min Tanvir Black MD Work Phone: [employer] 11-13-2022 11:23-0500 Respiratory rate 14 /min Tanvir Black MD Work Phone: [employer] 11-13-2022 11:23-0500 SaO2% (BldA) [Mass fraction] 100 % Tanvir Black MD Work Phone: [employer] 11-13-2022 11:23-0500 Systolic blood pressure 153 mm[Hg] Tanvir Black MD Work Phone: [employer] 10-27-2022 09:49-0500 Body mass index (BMI) [Ratio] 26.59 kg/m2 Marcello Ibanez MD Work Phone: [employer] 10-27-2022 09:49-0500 Body temperature 97.5 [degF] Marcello Ibanez MD Work Phone: [employer] 10-27-2022 09:49-0500 Body weight 77.02 kg Marcello Ibanez MD Work Phone: [employer] 10-27-2022 09:49-0500 Diastolic blood pressure 55 mm[Hg] Marcello Ibanez MD Work Phone: [employer] 10-27-2022 09:49-0500 Heart rate 84 /min Marcello Ibanez MD Work Phone: [employer] 10-27-2022 09:49-0500 SaO2% (BldA) [Mass fraction] 100 % Marcello Ibanez MD Work Phone: [employer] 10-27-2022 09:49-0500 Systolic blood pressure 128 mm[Hg] Marcello Ibanez MD Work Phone: [employer] 08-25-2022 13:44-0500 Body mass index (BMI) [Ratio] 26.78 kg/m2 Theo Burks MD Work Phone: [employer] 08-25-2022 13:44-0500 Body temperature 98.49 [degF] Theo Burks MD Work Phone: [employer] 08-25-2022 13:44-0500 Body weight 77.56 kg Theo Burks MD Work Phone: [employer] 08-25-2022 13:44-0500 Diastolic blood pressure 65 mm[Hg] Theo Burks MD Work Phone: [employer] 08-25-2022 13:44-0500 Heart rate 69 /min Theo Burks MD Work Phone: [employer] 08-25-2022 13:44-0500 Respiratory rate 18 /min Theo Burks MD Work Phone: [employer] 08-25-2022 13:44-0500 SaO2% (BldA) [Mass fraction] 99 % Theo Bruks MD Work Phone: [employer] 08-25-2022 13:44-0500 Systolic blood pressure 132 mm[Hg] Theo Burks MD Work Phone: [employer] 08-25-2022 10:42-0500 Body mass index (BMI) [Ratio] 26.94 kg/m2 Abbey Alvarez MD Work Phone: [employer] 08-25-2022 10:42-0500 Body temperature 98.2 [degF] Abbey Alvarez MD Work Phone: [employer] 08-25-2022 10:42-0500 Body weight 78.02 kg Abbey Alvarez MD Work Phone: [employer] 08-25-2022 10:42-0500 Diastolic blood pressure 50 mm[Hg] Abbey Alvarez MD Work Phone: [employer] 08-25-2022 10:42-0500 Heart rate 82 /min Abbey Alvarez MD Work Phone: [employer] 08-25-2022 10:42-0500 Systolic blood pressure 129 mm[Hg] Abbey Alvarez MD Work Phone: [employer] 08-15-2022 15:50-0500 Heart rate 78 /min Ann-Marie Bonner MD Work Phone: [employer] 08-15-2022 15:50-0500 Respiratory rate 14 /min Ann-Marie Bonner MD Work Phone: [employer] 08-15-2022 15:50-0500 SaO2% (BldA) [Mass fraction] 98 % Ann-Marie Bonner MD Work Phone: [employer] 08-15-2022 12:51-0500 Body mass index (BMI) [Ratio] 20.52 kg/m2 Ann-Marie Bonner MD Work Phone: [employer] 08-15-2022 12:51-0500 Body temperature 98.49 [degF] Ann-Marie Bonner MD Work Phone: [employer] 08-15-2022 12:51-0500 Body weight 59.42 kg Ann-Marie Bonner MD Work Phone: [employer] 08-15-2022 12:51-0500 Diastolic blood pressure 70 mm[Hg] Ann-Marie Bonner MD Work Phone: [employer] 08-15-2022 12:51-0500 Systolic blood pressure 147 mm[Hg] Ann-Marie Bonner MD Work Phone: [employer] 08-15-2022 10:16-0500 Body mass index (BMI) [Ratio] 26.72 kg/m2 Nenita Franco MD Work Phone: [employer] 08-15-2022 10:16-0500 Body temperature 98.6 [degF] Nenita Franco MD Work Phone: [employer] 08-15-2022 10:16-0500 Body weight 77.38 kg Nenita Franco MD Work Phone: [employer] 08-15-2022 10:16-0500 Diastolic blood pressure 56 mm[Hg] Nenita Franco MD Work Phone: [employer] 08-15-2022 10:16-0500 Heart rate 85 /min Nenita Franco MD Work Phone: [employer] 08-15-2022 10:16-0500 Respiratory rate 18 /min Nenita Franco MD Work Phone: [employer] 08-15-2022 10:16-0500 SaO2% (BldA) [Mass fraction] 100 % Nenita Franco MD Work Phone: [employer] 08-15-2022 10:16-0500 Systolic blood pressure 136 mm[Hg] Nenita Franco MD Work Phone: [employer] 08-14-2022 13:12-0500 Diastolic blood pressure 60 mm[Hg] Saskia Madison APRN-RADIOCOMMUNICATIONS TECHNICIAN Work Phone: [facility] 08-14-2022 13:12-0500 Systolic blood pressure 128 mm[Hg] Saskia Madison APRN-RADIOCOMMUNICATIONS TECHNICIAN Work Phone: [facility] 08-14-2022 13:10-0500 Body mass index (BMI) [Ratio] 27.1 kg/m2 Saskia Madison APRN-RADIOCOMMUNICATIONS TECHNICIAN [facility] Phone[facility] 08-14-2022 13:10-0500 Body temperature 98.2 [degF] Saskia Madison APRN-RADIOCOMMUNICATIONS TECHNICIAN Work Phone: [facility] 08-14-2022 13:10-0500 Body weight 78.47 kg Saskia Madison APRN-RADIOCOMMUNICATIONS TECHNICIAN Work Phone: [facility] 08-14-2022 13:10-0500 Heart rate 84 /min Saskia Madison APRN-RADIOCOMMUNICATIONS TECHNICIAN Work Phone: [facility] 08-14-2022 11:51-0500 Body height 170.2 cm Tanvir Black MD Work Phone: [employer] 08-14-2022 11:51-0500 Body mass index (BMI) [Ratio] 26.78 kg/m2 Tanvir Black MD Work Phone: [employer] 08-14-2022 11:51-0500 Body temperature 99.19 [degF] Tanvir Black MD Work Phone: [employer] 08-14-2022 11:51-0500 Body weight 77.56 kg Tanvir Black MD Work Phone: [employer] 08-14-2022 11:51-0500 Diastolic blood pressure 60 mm[Hg] Tanvir Black MD Work Phone: [employer] 08-14-2022 11:51-0500 Heart rate 90 /min Tanvir Black MD Work Phone: [employer] 08-14-2022 11:51-0500 Respiratory rate 14 /min Tanvir Black MD Work Phone: [employer] 08-14-2022 11:51-0500 SaO2% (BldA) [Mass fraction] 100 % Tanvir Black MD Work Phone: [employer] 08-14-2022 11:51-0500 Systolic blood pressure 141 mm[Hg] Tanvir Black MD Work Phone: [employer] 05-06-2022 10:03-0400 Body height 170.2 cm Tanvir Black MD Work Phone: [employer] 05-06-2022 10:03-0400 Body mass index (BMI) [Ratio] 26.78 kg/m2 Tanvir Black MD Work Phone: [employer] 05-06-2022 10:03-0400 Body temperature 98.4 [degF] Tanvir Black MD Work Phone: [employer] 05-06-2022 10:03-0400 Body weight 77.56 kg Tanvir Black MD Work Phone: [employer] 05-06-2022 10:03-0400 Diastolic blood pressure 70 mm[Hg] Tanvir Black MD Work Phone: [employer] 05-06-2022 10:03-0400 Heart rate 75 /min Tanvir Black MD Work Phone: [employer] 05-06-2022 10:03-0400 Respiratory rate 16 /min Tanvir Black MD Work Phone: [employer] 05-06-2022 10:03-0400 SaO2% (BldA) [Mass fraction] 100 % Tanvir Black MD Work Phone: [employer] 05-06-2022 10:03-0400 Systolic blood pressure 137 mm[Hg] Tanvir Black MD Work Phone: [employer] 03-13-2022 11:39-0400 Body mass index (BMI) [Ratio] 25.84 kg/m2 Tanvir Black MD Work Phone: [employer] 03-13-2022 11:39-0400 Body temperature 98.49 [degF] Tanvir Black MD Work Phone: [employer] 03-13-2022 11:39-0400 Body weight 74.84 kg Tanvir Black MD Work Phone: [employer] 03-13-2022 11:39-0400 Diastolic blood pressure 69 mm[Hg] Tanvir Black MD Work Phone: [employer] 03-13-2022 11:39-0400 Heart rate 85 /min Tanvir Black MD Work Phone: [employer] 03-13-2022 11:39-0400 Respiratory rate 14 /min Tanvir Black MD Work Phone: [employer] 03-13-2022 11:39-0400 SaO2% (BldA) [Mass fraction] 100 % Tanvir Black MD Work Phone: [facility] 03-13-2022 11:39-0400 Systolic blood pressure 137 mm[Hg] Tanvir Black MD Work Phone: [facility] 02-17-2022 16:07-0400 Diastolic blood pressure 76 mm[Hg] [facility] 02-17-2022 16:07-0400 Heart rate 84 /min [facility] 02-17-2022 16:07-0400 Mean blood pressure 94 mm[Hg] [facility] 02-17-2022 16:07-0400 Respiratory rate 18 /min [facility] 02-17-2022 16:07-0400 SaO2% (BldA) [Mass fraction] 98 % [facility] 02-17-2022 16:07-0400 Systolic blood pressure 129 mm[Hg] [facility] 02-17-2022 15:18-0400 Diastolic blood pressure 75 mm[Hg] [facility] 02-17-2022 15:18-0400 Heart rate 79 /min [facility] 02-17-2022 15:18-0400 Mean blood pressure 92 mm[Hg] [facility] 02-17-2022 15:18-0400 Respiratory rate 16 /min [facility] 02-17-2022 15:18-0400 SaO2% (BldA) [Mass fraction] 99 % [facility] 02-17-2022 15:18-0400 Systolic blood pressure 126 mm[Hg] [facility] 02-17-2022 14:58-0400 Diastolic blood pressure 76 mm[Hg] [facility] 02-17-2022 14:58-0400 Heart rate 79 /min [facility] 02-17-2022 14:58-0400 Mean blood pressure 99 mm[Hg] [facility] 02-17-2022 14:58-0400 Respiratory rate 18 /min [facility] 02-17-2022 14:58-0400 SaO2% (BldA) [Mass fraction] 100 % [facility] 02-17-2022 14:58-0400 Systolic blood pressure 144 mm[Hg] [facility] 02-17-2022 12:30-0400 Body temperature 98.24 [degF] [facility] 02-17-2022 12:30-0400 Heart rate 101 /min [facility] 02-17-2022 12:30-0400 Respiratory rate 18 /min [facility] 02-11-2022 10:22-0400 Body height 170.2 cm Tanvir Black MD Work Phone: [facility] 02-11-2022 10:22-0400 Body mass index (BMI) [Ratio] 26.16 kg/m2 Tanvir Black MD Work Phone: [facility] 02-11-2022 10:22-0400 Body temperature 98.2 [degF] Tanvir Black MD Work Phone: [employer] 02-11-2022 10:22-0400 Body weight 75.75 kg Tanvir Black MD Work Phone: [employer] 02-11-2022 10:22-0400 Diastolic blood pressure 81 mm[Hg] Tanvir Black MD Work Phone: [employer] 02-11-2022 10:22-0400 Heart rate 103 /min Tanvir Black MD Work Phone: [employer] 02-11-2022 10:22-0400 Respiratory rate 16 /min Tanvir Black MD Work Phone: [employer] 02-11-2022 10:22-0400 SaO2% (BldA) [Mass fraction] 100 % Tanvir Black MD Work Phone: [employer] 02-11-2022 10:22-0400 Systolic blood pressure 157 mm[Hg] Tanvir Black MD Work Phone: [employer] 01-17-2022 14:20-0400 Body temperature 98.29 [degF] Francisco Marino MD Work Phone: [employer] 01-17-2022 14:20-0400 Diastolic blood pressure 56 mm[Hg] Francisco Marino MD Work Phone: [employer] 01-17-2022 14:20-0400 Heart rate 83 /min Francisco Marino MD Work Phone: [employer] 01-17-2022 14:20-0400 Respiratory rate 18 /min Francisco Marino MD Work Phone: [employer] 01-17-2022 14:20-0400 SaO2% (BldA) [Mass fraction] 100 % Francisco Marino MD Work Phone: [employer] 01-17-2022 14:20-0400 Systolic blood pressure 125 mm[Hg] Francisco Marino MD Work Phone: [employer] 01-17-2022 06:00-0400 Body mass index (BMI) [Ratio] 22.77 kg/m2 Francisco Marino MD Work Phone: [facility] 01-17-2022 06:00-0400 Body weight 65.95 kg Francisco Marino MD Work Phone: [facility] 01-10-2022 18:36-0400 Heart rate 96 /min Francisco Marino MD Work Phone: [facility] 01-08-2022 21:47-0400 Heart rate 76 /min Francisco Marino MD Work Phone: [facility] 01-08-2022 14:00-0400 Hourly Rounding Aldair Ila [facility] 01-08-2022 14:00-0400 Promise to Return Aldair Ila [facility] 01-08-2022 14:00-0400 SaO2% (BldA) [Mass fraction] 100 % Aldair Ila [facility] 01-08-2022 08:00-0400 Body height 170.2 cm Francisco Marino MD Work Phone: [facility] 01-08-2022 05:00-0400 Diastolic blood pressure 70 mm[Hg] Aldair Ila [facility] 01-08-2022 05:00-0400 Heart rate 87 /min Aldair Ila [facility] 01-08-2022 05:00-0400 Mean blood pressure 91 mm[Hg] Aldair Ila [facility] 01-08-2022 05:00-0400 Respiratory rate 18 /min Aldair Ila [facility] 01-08-2022 05:00-0400 Systolic blood pressure 134 mm[Hg] Aldair Ila [facility] 01-08-2022 04:00-0400 Body temperature 98.96 [degF] Aldair Ila [facility] 01-08-2022 04:00-0400 Diastolic blood pressure 74 mm[Hg] Aldair Ila [facility] 01-08-2022 04:00-0400 Heart rate 96 /min Aldair Ila [facility] 01-08-2022 04:00-0400 Mean blood pressure 90 mm[Hg] Aldair Ila [facility] 01-08-2022 04:00-0400 Respiratory rate 20 /min Aldair Ila [facility] 01-08-2022 04:00-0400 SaO2% (BldA) [Mass fraction] 97 % Aldair Ila [facility] 01-08-2022 04:00-0400 Systolic blood pressure 122 mm[Hg] Aldair Ila [facility] 01-08-2022 03:00-0400 Diastolic blood pressure 72 mm[Hg] Aldair Ila [facility] 01-08-2022 03:00-0400 Heart rate 80 /min Aldair Ila [facility] 01-08-2022 03:00-0400 SaO2% (BldA) [Mass fraction] 98 % Aldair Ila [facility] 01-08-2022 03:00-0400 Systolic blood pressure 126 mm[Hg] Aldair Ila [facility] 01-08-2022 00:00-0400 Body temperature 98.42 [degF] Aldair Ila [facility] 01-07-2022 20:30-0400 Body temperature 98.06 [degF] Aldair Ila [facility] 01-07-2022 20:00-0400 Blood Pressure Location Aldair Galiciaer [facility] 01-07-2022 19:13-0400 Heart rate 112 /min Aldair Galiciaer [facility] 01-07-2022 19:00-0400 Blood Pressure Location Aldair Galiciaer [facility] 01-07-2022 18:00-0400 Blood Pressure Location Aldair Thorpe [facility] 01-07-2022 17:04-0400 Heart rate 110 /min Aldair Galiciaer [facility] 01-07-2022 14:32-0400 Heart rate 117 /min [facility] Ila [facility] Encounters Encounter Date Encounter Type Care Provider Facility Start: 04-07-2025 ambulatory Vic Ramos Facili ty:[facility] Start: 01-24-2025 End: 01-24-2025 Bamboo flowsheet Kenn Hickey PhD Work Phone: [facility] Start: 01-24-2025 End: 01-24-2025 Arao flowsheet Kenn Hickey PhD Work Phone: [facility] Start: 01-24-2025 End: 01-24-2025 Patient encounter procedure Kenn Hickey PhD Work Phone: [facility] Comment on above: Other chronic pain ( Primary Dx); Spinal cord stimulator status Start: 01-24-2025 End: 01-24-2025 ambulatory KENN HICKEY Not Available Start: 01-12-2025 End: 01-12-2025 ambulatory [place] Ramos [place] Start: 01-12-2025 End: 01-12-2025 Patient encounter procedure Evelio Carr [facility] Start: 01-03-2025 End: 01-03-2025 ambulatory Evelio Carr [place] Start: 01-03-2025 End: 01-03-2025 Pain Management Evelio Carr [facility] Start: 12-21-2024 End: 12-21-2024 ambulatory Vic Ramos Facility:[facility] Start: 12-20-2024 End: 12-20-2024 ambulatory Vic Ramos [place] Start: 12-20-2024 End: 12-20-2024 Patient encounter procedure Sadie Loco [facility] Start: 11-28-2024 End: 11-29-2024 ambulatory Sadie Loco [place] Start: 11-28-2024 End: 11-29-2024 Patient encounter procedure Sadie Loco [facility] Start: 11-21-2024 End: 11-21-2024 ambulatory Sadie Loco [place] Start: 11-21-2024 End: 11-21-2024 Patient encounter procedure Sadie Loco [facility] Start: 11-21-2024 End: 11-21-2024 ambulatory Mario Evans Facility:[facility] Start: 11-21-2024 End: 11-21-2024 Patient encounter procedure Sadie Loco [facility] Start: 11-18-2024 End: 11-18-2024 Patient encounter procedure Keith Patricia [facility] Start: 11-18-2024 End: 11-18-2024 ambulatory Keith Patricia [place] Start: 11-18-2024 End: 11-18-2024 ambulatory Mario Marreroi Facility[place] Start: 11-18-2024 End: 11-18-2024 Patient encounter procedure Mario Evans [facility] Start: 11-11-2024 End: 11-11-2024 ambulatory Mario Marreroi [place] Start: 11-09-2024 End: 11-09-2024 ambulatory Evelio CarmelinaSarah Carr [place] Start: 11-09-2024 End: 11-09-2024 Patient encounter procedure Evelio Carr [facility] Start: 10-26-2024 End: 10-26-2024 ambulatory Evelio Carr [place] Start: 10-26-2024 End: 10-26-2024 Patient encounter procedure Evelio Carr [facility] Start: 10-05-2024 End: 10-05-2024 ambulatory Vic Ramos Facility:[facility] Start: 10-05-2024 End: 10-05-2024 Patient encounter procedure Vic Ramos [facility] Start: 09-29-2024 End: 09-29-2024 ambulatory Kavon Lu [place] Start: 09-29-2024 End: 09-29-2024 Patient encounter procedure Kavon Lu [facility] Start: 09-16-2024 End: 09-16-2024 ambulatory Kavon Lu [place] Start: 09-16-2024 End: 09-16-2024 Patient encounter procedure Kavon Lu [facility] Start: 08-19-2024 End: 08-19-2024 ambulatory Loreta Cummings Facility:[facility] Start: 08-19-2024 End: 08-19-2024 Patient encounter procedure Loreta Cummings [facility] Start: 08-11-2024 End: 08-11-2024 ambulatory Kavon Lu [place] Start: 08-11-2024 End: 08-11-2024 Patient encounter procedure Kavon Lu [facility] Start: 07-09-2024 End: 07-09-2024 ambulatory Kavon Lu [place] Start: 07-09-2024 End: 07-09-2024 Patient encounter procedure Kavon Lu [facility] Start: 06-09-2024 End: 06-09-2024 ambulatory Martin Talal Sarmini Facility:[facility] Start: 06-09-2024 End: 06-09-2024 Patient encounter procedure Martin Talal Sarmini [facility] Start: 05-24-2024 End: 05-24-2024 ambulatory Martin Talal Sarmini [place] Start: 05-24-2024 End: 05-24-2024 Patient encounter procedure Martin Talal Sarmini [facility] Start: 05-20-2024 ambulatory Loreta Cummings [facility] Start: 05-12-2024 End: 05-12-2024 ambulatory Martin Talal Sarmini Facility:[facility] Start: 05-12-2024 End: 05-12-2024 Patient encounter procedure Martin Talal Sarmini [facility] Start: 05-12-2024 End: 05-12-2024 Office outpatient visit 15 minutes Radha Betrrand MD Work Phone: [facility] Comment on above: Lymphedema (Primary Dx) Start: 05-11-2024 End: 05-11-2024 ambulatory Ella Gonzales [place] Start: 05-11-2024 End: 05-11-2024 Patient encounter procedure Kavon Lu [facility] Start: 05-06-2024 End: 05-06-2024 ambulatory Kavon Lu Facility[place] Start: 05-06-2024 End: 05-06-2024 Patient encounter procedure Kavon Lu [facility] Start: 04-29-2024 End: 04-29-2024 ambulatory Loreta Cummings Facility:[facility] Start: 04-29-2024 End: 04-29-2024 Patient encounter procedure Loreta Cummings [facility] Start: 04-27-2024 End: 04-27-2024 Evaluation and management of inpatient [facility] Start: 04-26-2024 End: 04-27-2024 Evaluation and management of inpatient [facility] Start: 04-26-2024 End: 04-26-2024 Evaluation and management of inpatient [facility] Start: 04-21-2024 End: 04-21-2024 [facility] Phone Call Provider 2 [facility] Start: 04-21-2024 End: 04-21-2024 Evaluation and management of inpatient LORETA CUMMINGS [facility] Start: 04-15-2024 ambulatory Loreta Cummings Facil ity:[facility] Start: 04-14-2024 End: 04-14-2024 Orders Only [facility] Start: 04-14-2024 End: 04-14-2024 Office outpatient new 45 minutes Radha Bertrand MD Work Phone: [facility] Comment on above: Varicose veins of laith th lower extremities with pain (Primary Dx); AVM (arteriovenous malformation) Start: 04-13-2024 End: 04-29-2024 Pre-admission assessment Kavon Bowmanronan [facility] Start: 04-05-2024 End: 04-29-2024 ambulatory Loreta Cummings Facility::[id number] Start: 03-17-2024 End: 03-17-2024 ambulatory Loreta Cummings [facility] Start: 03-17-2024 End: 03-17-2024 Patient encounter procedure Marc Liz [facility] Start: 03-14-2024 End: 03-14-2024 ambulatory [facility] Ella Crainstefany Facility[place] Start: 03-14-2024 End: 03-14-2024 Patient encounter procedure Ella Crainstefany [facility] Start: 03-02-2024 End: 03-02-2024 ambulatory Ella Crainsharadarcy Facility[place] Start: 03-02-2024 End: 03-02-2024 Patient encounter procedure Ella Crainstefany [facility] Start: 02-25-2024 End: 02-25-2024 ambulatory Loreta Cummings Facility[place] Start: 02-25-2024 End: 02-25-2024 Patient encounter procedure Ella Crainsharadarcy [facility] Start: 02-20-2024 End: 02-20-2024 ambulatory [facility] Ella Crainsharadarcy [facility] Start: 02-20-2024 End: 02-20-2024 Patient encounter procedure Ella Gonzales [facility] Start: 02-06-2024 End: 02-08-2024 Refill Marcello Ibanez MD Work Phone: [facility] Comment on above: Refill Start: 01-27-2024 End: 01-27-2024 ambulatory Loreta Cummings Facility:[facility] Start: 01-27-2024 End: 01-27-2024 Patient encounter procedure Loreta Cummings [facility] Start: 12-31-2023 End: 12-31-2023 ambulatory Loreta Cummings [facility] Start: 12-31-2023 End: 12-31-2023 Patient encounter procedure Loreta Cummings [facility] Start: 12-30-2023 End: 12-30-2023 ambulatory JOSIANE MCCULLOUGH Facility:[facility] Start: 12-30-2023 End: 12-30-2023 Patient encounter procedure Margaret Zuñiga MD Work Phone: General Surgery Comment on above: Gallstones (Primary Dx) Start: 12-23-2023 End: 12-23-2023 ambulatory Loreta Cummings Facility:[facility] Start: 12-23-2023 End: 12-23-2023 Patient encounter procedure Loreta Cummings [facility] Start: 12-21-2023 End: 12-21-2023 ambulatory Loreta Cummings [facility] Start: 12-21-2023 End: 12-21-2023 Patient encounter procedure Loreta Cummings [facility] Start: 12-14-2023 End: 01-13-2024 ambulatory Loreta Cummings Facility:CD:[id number] Start: 12-11-2023 End: 12-13-2023 Observation Desi Mena [facility] Start: 12-11-2023 End: 12-11-2023 Patient encounter procedure Loreta Cummings [facility] Start: 11-11-2023 End: 11-11-2023 Patient encounter procedure Mario Gouldmini [facility] Start: 10-28-2023 End: 10-28-2023 Patient encounter procedure Loreta Cummings [facility] Start: 10-01-2023 End: 10-01-2023 Subsequent hospital visit by physician Tanvir Black MD Work Phone: [facility] Comment on above: 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) Start: 10-01-2023 End: 10-01-2023 Patient encounter procedure Loreta Cummings [facility] Start: 10-01-2023 End: 10-01-2023 ambulatory THEO BURKS Facility:[facility] Start: 09-27-2023 Letter encounter Theo bright MD Work Phone: [facility] Start: 09-21-2023 End: 09-21-2023 Patient encounter procedure Keith Patricia [facility] Start: 09-03-2023 End: 09-03-2023 Patient encounter procedure Mario Xiong Sarmini [facility] Start: 09-01-2023 End: 09-01-2023 Patient encounter procedure Mario Evans [facility] Start: 08-26-2023 End: 08-26-2023 Patient encounter procedure Loreta Cummings [facility] Start: 08-25-2023 Refill Tanvir Black MD [facility] Comment on above: Refill Start: 08-06-2023 End: 08-06-2023 Patient encounter procedure Teddy Hitchcock [facility] Start: 08-03-2023 End: 11-01-2023 Recurring Loreta Cummings [facility] Start: 07-24-2023 End: 07-24-2023 Lab Drop off Loreta Cummings [facility] Start: 07-24-2023 End: 07-24-2023 Patient encounter procedure Loreta Cummings [facility] Start: 07-23-2023 End: 07-23-2023 Patient encounter procedure Teddy Hitchcock [facility] Start: 07-20-2023 E-mail encounter fro m caregiver Tanvir Black MD Work Phone: [facility] Start: 07-20-2023 Patient encounter procedure Tan[facility] Black MD [facility] Comment on above: Had to reschedule ap pointment Start: 07-16-2023 End: 07-16-2023 Patient encounter procedure Teddy Hitchcock [facility] Start: 07-13-2023 Refill Marcello Ibanez MD Work Phone: [facility] Comment on above: Refill Start: 07-11-2023 Refill Tanvir Black MD Work Phone: [facility] Comment on above: Refill Start: 07-06-2023 End: 07-07-2023 Pre-admission assessment Teddy Hitchcock [facility] Start: 06-25-2023 End: 06-25-2023 Patient encounter procedure Teddy Hitchcock [facility] Start: 06-19-2023 End: 06-19-2023 Emergency department patient visit Teddy Luna [facility] Start: 06-18-2023 End: 06-18-2023 Patient encounter procedure Teddy Hitchcock [facility] Start: 06-04-2023 End: 06-04-2023 Patient encounter procedure Teddy Hitchcock [facility] Start: 05-25-2023 End: 05-25-2023 Patient encounter procedure Teddy Hitchcock [facility] Start: 05-14-2023 End: 05-14-2023 Patient encounter procedure Teddy Hitchcock [facility] Start: 05-07-2023 End: 05-07-2023 Patient encounter procedure Teddy Hitchcock [facility] Start: 04-30-2023 End: 05-01-2023 Pre-admission assessment Teddy Hitchcock [facility] Start: 04-24-2023 End: 04-24-2023 ambulatory Jarrod Eddy Other [facility] Other Start: 04-24-2023 Office outpatient ne w 45 minutes Jarrod Eddy [facility] Start: 04-24-2023 Refill Tanvir Black MD Work Phone: [facility] Comment on above: Refill Start: 04-23-2023 End: 04-23-2023 Patient encounter procedure Teddy Hitchcock [facility] Start: 04-22-2023 ambulatory Tanvir Black MD Work Phone: [facility] Comment on above: lab results Start: 04-22-2023 E-mail encounter fro m caregiver Tanvir Black MD Work Phone: [facility] Start: 04-21-2023 End: 04-21-2023 Patient encounter status Tan[facility] Black MD [facility] Start: 04-21-2023 End: 04-21-2023 Subsequent hospital visit by physician Monie Hernandez 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) Start: 04-16-2023 End: 04-16-2023 Patient encounter procedure Teddy Hitchcock [facility] Start: 04-13-2023 End: 04-13-2023 Patient encounter procedure Teddy Hitchcock [facility] Start: 03-22-2023 End: 03-22-2023 Emergency department patient visit Martin Reese [facility] Start: 03-22-2023 Letter encounter Tanvir Black MD Work Phone: [facility] Comment on above: Refill Start: 03-16-2023 End: 03-16-2023 Patient encounter procedure Teddy Hitchcock [facility] Start: 03-06-2023 Refill Theo wilder MD Work Phone: [facility] Comment on above: Refill Prior Authorization Start: 03-05-2023 End: 03-05-2023 Patient encounter procedure Teddy Hitchcock [facility] Start: 02-27-2023 Telephone encounter Nighat rai STRUCTURAL WORKER-RADIOCOMMUNICATIONS TECHNICIAN Work Phone: [facility] Comment on above: Left Message To Call Back Start: 02-18-2023 End: 02-18-2023 Emergency department patient visit Brent Sanches [facility] Start: 02-09-2023 Refill Dejuan Lechuga MD Work Phone: [facility] Comment on above: Refill Start: 01-20-2023 End: 01-20-2023 Subsequent hospital visit by physician Ip/Op Angio 1 [facility] Comment on above: Coagulation defect ( HCC) (Primary Dx); Alcoholic fatty liver; Hyperbilirubinemia; Alcoholic hepatitis, unspecified whether ascites present Start: 01-12-2023 End: 01-12-2023 Subsequent hospital visit by physician Meka Lucas RN [facility] Comment on above: 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) Start: 01-12-2023 End: 01-12-2023 Office outpatient visit 25 minutes Marcello Ibanez MD Work Phone: [facility] Comment on above: Liver fibrosis (Prim tanner Dx); Alcohol use disorder in remission; Elevated liver enzymes; Jaundice; Body mass index (BMI) 27.0-27.9, adult Start: 12-20-2022 Letter encounter Theo bright MD Work Phone: [facility] Start: 12-16-2022 End: 12-16-2022 Office outpatient visit 15 minutes Dejuan Lechuga MD Work Phone: [facility] Comment on above: Rib pain (Primary Dx ); Alcoholic cirrhosis of liver without ascites (HCC); Body mass index (BMI) 28.0-28.9, adult Start: 12-15-2022 End: 12-15-2022 Phys/qhp telephone evaluation 11-20 min Theo Burks MD Work Phone: [facility] Comment on above: Rib pain (Primary Dx ) Start: 12-15-2022 Letter encounter Theo bright MD Work Phone: [facility] Start: 12-15-2022 Telephone encounter Theo Burks MD Work Phone: [facility] Start: 12-03-2022 Refill Marcello Ibanez MD Work Phone: [facility] Comment on above: Refill Start: 11-13-2022 End: 11-13-2022 Subsequent hospital visit by physician Tanvir Black MD Work Phone: [facility] Comment on above: 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) Start: 10-27-2022 Letter encounter Theo bright MD Work Phone: [facility] Start: 10-27-2022 End: 11-03-2022 Office outpatient visit 25 minutes Marcello Ibanez MD Work Phone: [facility] Comment on above: Alcoholic cirrhosis of liver without ascites (HCC) (Primary Dx); Nausea Alcoholic fatty live r (Primary Dx); Nausea; Hyperbilirubinemia; Alcoholic hepatitis, unspecified whether ascites present Alcoholic fatty live r (Primary Dx); Nausea; Hyperbilirubinemia; Alcoholic hepatitis, unspecified whether ascites present; Body mass index (BMI) 26.0-26.9, adult Start: 10-01-2022 Refill Abbey Love Work Phone: [facility] Comment on above: Refill I have a few questio ns Start: 09-21-2022 Letter encounter Theo bright MD Work Phone: [facility] Start: 09-20-2022 Telephone encounter Tanika lange RN Work Phone: [facility] Comment on above: Cancel Appointment Start: 09-16-2022 Orders Only Saskia Gricelda STRUCTURAL WORKER-RADIOCOMMUNICATIONS TECHNICIAN Work Phone: [facility] [place] [facility] Start: 09-15-2022 Orders Only Samantha Stauffer STRUCTURAL WORKER-RADIOCOMMUNICATIONS TECHNICIAN Work Phone: [facility] Start: 08-29-2022 End: 08-29-2022 Phys/qhp telephone evaluation 5-10 min Theo Burks MD Work Phone: [facility] Comment on above: Cellulitis, unspecif ied cellulitis site (Primary Dx); Muscle soreness Start: 08-25-2022 End: 08-25-2022 Orders Only Abbey Alvarez MD Work Phone: [facility] Comment on above: Arrived Start: 08-25-2022 End: 08-26-2022 Office outpatient visit 25 minutes Abbey Alvarez MD Work Phone: [facility] Comment on above: Alcoholic hepatitis without [...] adult Start: 08-22-2022 ambulatory Jim Hill RN [facility] Comment on above: internal med request Start: 08-22-2022 E-mail encounter giana m caregiver Jim Hill RN [facility] Start: 08-21-2022 Letter encounter Lorena Sparrow Ultrasound Start: 08-16-2022 Orders Only Tanvir Black MD Work Phone: [facility] Start: 08-15-2022 ambulatory Tanvir Black MD Work Phone: [facility] Comment on above: Severe pain Start: 08-15-2022 E-mail encounter giana maguire caregiver Tanvir Black MD Work Phone: [facility] Start: 08-15-2022 End: 08-15-2022 Emergency department patient visit Ann-Marie Bonner MD Work Phone: [facility] Comment on above: Leg/thigh symptoms ( Pt states has infection in R leg x 4 days, seen yesterday for same) Start: 08-15-2022 End: 08-15-2022 Office outpatient new 30 minutes Nenita Franco MD Work Phone: [facility] Comment on above: Cellulitis, unspecif ied cellulitis site (Primary Dx); Body mass index (BMI) 26.0-26.9, adult Start: 08-14-2022 Letter encounter [facility] Start: 08-14-2022 End: 08-14-2022 Office consultation new/estab patient 60 min Saskia SILVESTRE Work Phone: [facility] Comment on above: Alcoholic cirrhosis, unspecified whether ascites present (HCC) (Primary Dx); Iron deficiency anemia, unspecified iron deficiency anemia type; Alcoholic cirrhosis of liver without ascites (HCC); Body mass index (BMI) 27.0-27.9, adult Start: 08-14-2022 End: 08-14-2022 Subsequent hospital visit by physician Jasmyne Grimaldo RN [facility] Comment on above: Dx: Thrombocytopenia (HCC) (Primary Dx) Start: 08-14-2022 End: 08-14-2022 Office outpatient visit 40 minutes Tanvir Black MD Work Phone: [facility] Comment on above: 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) Start: 08-08-2022 ambulatory Tanvir Black MD Work Phone: [facility] Comment on above: Question Start: 08-08-2022 E-mail encounter giana m caregiver Tanvir Black MD Work Phone: [facility] Start: 05-06-2022 End: 05-06-2022 Office outpatient visit 40 minutes Tanvir Black MD Work Phone: [facility] Comment on above: 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) Start: 05-06-2022 End: 05-06-2022 Subsequent hospital visit by physician Leslie Canela RN Work Phone: [facility] Comment on above: 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) Start: 05-05-2022 Letter encounter [facility] Start: 03-13-2022 Letter encounter [facility] Start: 03-13-2022 End: 03-13-2022 Subsequent hospital visit by physician Rosita Le RN Work Phone: [facility] Comment on above: 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 Comment on above: Prior Authorization Start: 01-08-2022 End: 01-17-2022 Evaluation and management of inpatient Francisco Marino MD Work Phone: Inpatient 10B Start: 01-07-2022 End: 01-08-2022 Evaluation and management of inpatient Aldair Thorpe [facility] Procedures Date Procedure Procedure Detail Performing Clinician Start: 01-03-2025 Local anesthetic saphenous nerve block Evelio Carr Start: 11-18-2024 Esophagogastroduodenoscopy Mario Pedro ini Start: 11-11-2023 Esophagogastroduodenoscopy Mario Pedro ini Start: 09-30-2023 Esophagogastroduodenoscopy Loreta rosales Comment on above: 3 large esophageal [...] Phone: Start: 11-13-2022 Alpha-fetoprotein serum Saskia Madison STRUCTURAL WORKER-RADIOCOMMUNICATIONS TECHNICIAN Work Phone: Start: 11-13-2022 Antihuman globulin direct [...] Start: 01-17-2022 End: 01-17-2022 Lactate dehydrogenase ldh Cjer Ceferino DO Work Phone: Start: 01-16-2022 Glucose blood [...] Start: 01-14-2022 Glucose blood reagent strip Edtawny ordoñez MD Work Phone: Start: 01-14-2022 Glucose blood reagent strip Edtawny ordoñez MD Work Phone: Start: 01-14-2022 Hepatic function panel Ivy Chua MD Work Phone: Start: 01-14-2022 End: 01-14-2022 Lactate dehydrogenase ldh Ariopher Ceferino DO Work Phone: Start: 01-13-2022 Glucose blood reagent strip Leon ordoñez MD Work Phone: Start: 01-13-2022 Glucose blood reagent strip Edtawny ordoñez MD Work Phone: Start: 01-13-2022 Glucose blood reagent strip Leon ordoñez MD Work Phone: Start: 01-13-2022 Hepatic function panel Ivy Chua MD Work Phone: Start: 01-13-2022 End: 01-13-2022 Lactate dehydrogenase ldh Cjer Ceferino DO Work Phone: Start: 01-12-2022 Glucose blood reagent strip Edtawny ordoñez MD Work Phone: Start: 01-12-2022 Blood count smear mcrscp w/mnl difrntl wbc count Ivy Chua MD Work Phone: Start: 01-12-2022 Hepatic function panel Ivy Chua MD Work Phone: Start: 01-12-2022 End: 01-12-2022 Lactate dehydrogenase ldh Ariopher De La Vega [...] nos amplified probe tq each organism Darion Santo DO Work Phone: Start: 01-10-2022 RED BLOOD [...] Phone: Start: 01-09-2022 RED BLOOD CELL COMPONENT Shayythpal Juvenal Winston MD Work Phone: Start: 01-09-2022 Creatine [...] 01-08-2022 Iadna hepatitis c quant & reverse habitat conservation planner Ivy Chua MD Work Phone: Start: 01-08-2022 Lipoprotein dir noelle high density cholesterol Salina Franks MD Work Phone: Start: 01-08-2022 CT BODY IMAGE IMPORT(CHRISTIANO) Ivy Love Work Phone: Start: 01-08-2022 XRAY CHEST IMAGE IMPORT(CHRISTIANO) Ivy harley MD Work Phone: Start: 01-08-2022 End: 01-08-2022 Radex humerus minimum 2 views Robert davidson MD Start: 01-08-2022 End: 01-08-2022 Creatine kinase total Ivy Chua MD Work Phone: Start: 01-08-2022 Hepatic function panel Ivy Chua MD Work Phone: Start: 01-08-2022 Ecg routine ecg w/least 12 lds trcg only w/o i&r Darion Blanchard DO Work Phone: Start: 01-08-2022 Lipid 1996 panel - Serum or Plasma Melvin Zuñiga MD Work Phone: Incision AND drainage Heladio Cummings Jaw region structure (body structure) Aldair Thorpe Plan of Treatment Date Care Activity Detail Author Start: 2034 Varicella-zoster vaccine (product) [facility] Start: 01-08-2027 Lipid panel [facility] Start: 05-08-2025 Influenza vaccination Influenza Vaccine (Season Ended) [facility] Start: 04-26-2025 Adult BMI Screening Adult BMI Screening [facility] Start: 04-26-2025 Tobacco Screening Tobacco Screening [facility] Start: 04-21-2025 Tobacco Screening Tobacco Screening [facility] Start: 04-14-2025 Adult BMI Screening Adult BMI Screening [facility] Start: 04-14-2025 Tobacco Screening Tobacco Screening [facility] Start: 01-24-2025 End: 01-24-2025 Patient encounter procedure 01/24/2025 9:00 AM EDT Off ice Visit [facility] [address] [address] [place] [phone] Kenn Hickey, PhD [address] [place] [address] Arrived [facility] Comment on above: Arrived Start: 05-12-2024 End: 05-12-2024 Patient encounter procedure 05/12/2024 9:30 AM EDT Off ice Visit [facility] [address] [place] [phone] Rdaha Bertrand MD [address] [place] [address] [facility] Start: 05-08-2024 COVID-19 Vaccine ( season) COVID-[address] () [facility] Start: 05-08-2024 Influenza vaccination [facility] Start: 04-26-2024 End: 04-26-2024 Admission to same day surgery center 04/26/2024 10:45 AM EDT - 04/26/2024 1:00 PM EDT Surgery [facility] [address] [place] [address] Radha Bertrand MD [address] [place] [address] ANGIOGRAM EXTREMITY LOWER WITH INTERVENTION [facility] Comment on above: ANGIOGRAM EXTREMITY LOWER WITH INTERVENT ION Start: 04-26-2024 End: 04-26-2024 ANGIOGRAM EXTREMITY LOWER ANGIOGRAM EXTREMITY LOWER ARTERIOVENOUS MALFORMATION LEG RIGHT 04/26/2024 10:[address] [facility] Start: 04-26-2024 Subsequent hospital visit by physician 04/26/2024 10:45 AM EDT Hospital Encounter [facility] [address] [place] [phone] Radha Bertrand MD [address] [place] [address] [facility] Start: 01-22-2024 End: 01-22-2024 Patient encounter procedure 01/22/2024 9:30 AM EDT Off ice Visit General Surgery [address] [address] Bang Fuentes MD [address] [place] [address] [facility] Comment on above: [facility] Start: 10-01-2023 End: 10-01-2023 Patient encounter procedure 10/01/2023 8:30 AM EST Appointment [facility] [address] [place] [address] Tanvir Black MD [address] [place] [address] [facility] Start: 09-07-2023 Behavioral Health Screening Behavioral Health Screening [facility] Start: 07-27-2023 End: 07-27-2023 Patient encounter procedure 07/27/2023 10:00 AM EST Office Visit [facility] [address] [place] [address] Marcello Ibanez MD [address] [place] [address] [facility] Start: 07-20-2023 End: 07-20-2023 Patient encounter procedure [facility] Start: 06-07-2023 Influenza vaccination Influenza Vaccine (#1) [facility] Start: 05-16-2023 Fluid sample AFP level [facility] Start: 05-08-2023 COVID-19 Vaccine ( season) COVID-19 Vaccine ( season) [facility] Start: 05-08-2023 Influenza vaccination Influenza Vaccine (#1) [facility] Start: 04-21-2023 End: 04-21-2023 Patient encounter procedure [facility] Start: 03-20-2023 End: 03-20-2023 Patient encounter procedure [facility] Start: 03-03-2023 End: 03-03-2023 Telemedicine consultation with patient 03/03/2023 11:20 AM EDT Telemedicine [facility] [address] [place] [address] Nighat Mahmood, STRUCTURAL WORKER-RADIOCOMMUNICATIONS TECHNICIAN [address] [place] [address] [facility] Start: 01-20-2023 End: 01-20-2023 Patient encounter procedure 01/20/2023 Appointment Radiology [facility] Start: 01-12-2023 End: 01-12-2023 Patient encounter procedure [facility] Start: 12-16-2022 End: 12-16-2022 Patient encounter procedure 12/16/2022 Office Visit Family Practice Dejuan Lechuga MD [address] [place] [id number] [facility] Start: 12-15-2022 End: 12-15-2022 Telemedicine consultation with patient 12/15/2022 Telemedicine Family Practice Theo Burks MD [address] [place] [address] [place] [address] Arrived [facility] Comment on above: Arrived Start: 12-15-2022 End: 12-16-2023 XR Ribs - left Views and Chest PA XR RIBS LT UNILAT W/PA CHEST Imaging Routine Rib pain Expected: 12/15/2022, Expires: 12/16/2023 [facility] Work Phone: Comment on above: Expected: 12/15/2022, Expires: 4 Start: 11-13-2022 End: 11-13-2022 Patient encounter procedure [facility] Start: 10-27-2022 End: 10-27-2023 RF Guidance for transjugular biopsy of Liver-- W contrast IV [facility] Comment on above: Expected: 10/27/2022, Expires: 4 Start: 10-27-2022 End: 10-27-2022 Patient encounter procedure 10/27/2022 Office Visit Gastroenterology Abbey Alvarez MD [address] [place] [address] [place] [address] [facility] Start: 09-22-2022 End: 09-22-2022 Admission to same day surgery center [facility] Comment on above: ESOPHAGOGASTRODUODENOSCOPY [...] Hospital Encounter Gastroenterology Claire Avila MD [address] [place] [address] [facility] Start: 09-19-2022 End: 09-19-2022 Patient encounter procedure 09/19/2022 Office Visit Gastroenterology Saskia Madison, LIBAN-RADIOCOMMUNICATIONS TECHNICIAN [address] [facility] [place] [address] [facility] [place] Start: 09-16-2022 End: 10-17-2022 SARS-CoV-2 (COVID-19) RNA [Presence] in Unspecified specimen by ANGIE with probe detection NOVEL CORONAVIRUS (COVID-19) Lab Routine Encounter for laboratory testing for severe acute respiratory syndrome coronavirus 2 (SARS-CoV-2) Expected: 09/16/2022, Expires: 10/17/2022 [facility] Work Phone: Comment on above: Expected: 09/16/2022, Expires: Start: 09-15-2022 End: 10-16-2022 SARS-CoV-2 (COVID-19) RNA [Presence] in Unspecified specimen by ANGIE with probe detection NOVEL CORONAVIRUS (COVID-19) Lab Routine Encounter for laboratory testing for severe acute respiratory syndrome coronavirus 2 (SARS-CoV-2) Expected: 09/15/2022, Expires: 10/16/2022 [facility] Work Phone: Comment on above: Expected: 09/15/2022, Expires: 3 Start: 09-11-2022 Hepatitis B vaccination Hepatitis B (HBV) Vaccine (2 of 3 - 19+ 3-dose series) [facility] Start: 09-11-2022 Hepatitis B Vaccine (2 of 3 - 19+ 3-dose series) Hepatitis B Vaccine (2 of 3 - 19+ 3-dose series) [facility] Start: 09-08-2022 End: 10-26-2022 Basic metabolic 2000 panel - Serum or Plasma BASIC METABOLIC PANEL Lab Routine Alcoholic hepatitis without ascites Alcoholic cirrhosis of liver without ascites (HCC) 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) Expected: 09/08/2022, Expires: 10/26/2022 [facility] Comment on above: Expected: 09/08/2022, Expires: 3 Start: 08-29-2022 End: 08-29-2022 Patient encounter procedure 08/29/2022 Office Visit Family Practice Theo Burks MD [address] [facility] [place] [address] [facility] Start: 08-28-2022 End: 08-28-2022 Telemedicine consultation with patient 08/28/2022 Telemedicine Gastroenterology Saskia Madison, LIBAN-DAYAMI [address] [facility] [place] [address] [facility] [place] Start: 08-27-2022 End: 09-12-2022 Assay of ferritin FERRITIN Lab Routine Alcoholic hepatitis without ascites Alcoholic cirrhosis of liver without ascites (HCC) 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) Expected: 08/27/2022, Expires: 09/12/2022 [employer] Comment on above: Expected: 08/27/2022, Expires: 3 Start: 08-27-2022 End: 09-12-2022 Assay of gammaglobulin iga igd igg igm each IMMUNOGLOBULIN G Lab Routine Alcoholic hepatitis without ascites Alcoholic cirrhosis of liver without ascites (HCC) 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) Expected: 08/27/2022, Expires: 09/12/2022 [employer] Comment on above: Expected: 08/27/2022, Expires: 3 Start: 08-27-2022 End: 09-12-2022 Assay of iron IRON AND TIBC Lab Routine Alcoholic hepatitis without ascites Alcoholic cirrhosis of liver without ascites (HCC) 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) Expected: 08/27/2022, Expires: 09/12/2022 [employer] Comment on above: Expected: 08/27/2022, Expires: 3 Start: 08-27-2022 End: 09-12-2022 Hfe hemochromatosis gene anal common variants HEMOCHROMATOSIS DNA TEST Lab Routine Alcoholic hepatitis without ascites Alcoholic cirrhosis of liver without ascites (HCC) 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) Expected: 08/27/2022, Expires: 09/12/2022 [employer] Comment on above: Expected: 08/27/2022, Expires: 3 Start: 08-27-2022 End: 09-12-2022 Smooth muscle antibody measurement SMOOTH MUSC ATB SCRN & TITR Lab Routine Alcoholic hepatitis without ascites Alcoholic cirrhosis of liver without ascites (HCC) 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) Expected: 08/27/2022, Expires: 09/12/2022 [employer] Comment on above: Expected: 08/27/2022, Expires: 3 Start: 08-27-2022 End: 09-12-2022 Unlisted chemistry procedure MISCELLANEOUS SEND OUT TE ST Lab Routine Alcoholic hepatitis without ascites Alcoholic cirrhosis of liver without ascites (HCC) 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) Expected: 08/27/2022, Expires: 09/12/2022 [facility] [employer] Work Phone: Comment on above: Expected: 08/27/2022, Expires: 3 Start: 08-25-2022 End: 09-12-2022 Prothrombin time PROTHROMBIN TIME AND INR Lab Lab Add-On Alcoholic cirrhosis of liver without ascites (HCC) Expected: 08/25/2022, Expires: 09/12/2022 [facility] [employer] Work Phone: Comment on above: Expected: 08/25/2022, Expires: 3 Start: 08-25-2022 End: 08-25-2022 Patient encounter procedure [facility] Comment on above: Arrived Start: 08-19-2022 End: 08-19-2022 Professional / ancillary services management 08/19/[address] [facility] [place] [facility] Start: 08-19-2022 End: 08-19-2022 Professional / ancillary services management 08/19/2022 [facility]illary [facility] [place] [facility] Start: 08-14-2022 End: 08-14-2023 US Abdomen RUQ US LIVER/GALL BLADDER/PANCREAS Imaging Routine Iron deficiency anemia, unspecified iron deficiency anemia type Alcoholic cirrhosis, unspecified whether ascites present (HCC) Expected: 08/14/2022, Expires: 08/14/2023 [employer] Work Phone: Comment on above: Expected: 08/14/2022, Expires: 3 Start: 08-14-2022 End: 08-14-2023 US.doppler Portal vein and Hepatic vein US HEP PORT SPLEN VEIN + DOPPLER Imaging Routine Iron deficiency anemia, unspecified iron deficiency anemia type Alcoholic cirrhosis, unspecified whether ascites present (HCC) Expected: 08/14/2022, Expires: 08/14/2023 [facility] Comment on above: Expected: 08/14/2022, Expires: 3 Start: 08-14-2022 End: 08-14-2022 [facility] Start: 07-11-2022 Hepatocellular Carcinoma Screening Hepatocellular Carcinoma Screening [facility] Start: 07-11-2022 Liver Imaging (Hepatocellular Carcinoma Screening) Liver Imaging (Hepatocellular Carcinoma Screening) [facility] Start: 07-11-2022 [facility] Start: 06-07-2022 Influenza vaccination Influenza Vaccine (#1) [facility] Start: 05-06-2022 Subsequent hospital visit by physician 05/06/2022 Hospital Encounter Oncology Medical Tanvir Black MD [address] [place] [address] Subj: Appointment Reminder [facility] Oncology Medical Comment on above: Subj: Appointment Reminder Start: 05-06-2022 End: 05-06-2022 Patient encounter procedure [facility] Non Invasive Cardiology Start: 04-07-2022 Influenza vaccination Influenza Vaccine (#1) [facility] Start: 03-13-2022 End: 03-13-2022 Patient encounter procedure 03/13/2022 Appointment Oncology Medical [facility] Oncology Medical Start: 03-13-2022 End: 03-13-2022 Patient encounter procedure 03/13/2022 Appointment Oncology Medical Tanvir Black MD [address] [place] [address] [facility] Oncology Medical Start: 02-11-2022 End: 02-11-2022 ambulatory [facility] Oncology Medical Start: 02-11-2022 End: 02-11-2022 Patient encounter procedure 02/11/2022 Appointment Oncology Medical Tanvir Black MD [address] [place] [address] [facility] Oncology Medical Start: 01-23-2022 End: 01-23-2022 ambulatory [facility] Start: 01-23-2022 End: 01-23-2022 Patient encounter procedure 01/23/2022 Office Visit Orthopedics Ronen Welch MD [address] [facility] [address] [place] [address] [facility] Start: 01-20-2022 End: 01-20-2022 ambulatory [facility] Start: 02-05-2021 COVID-19 Vaccine (2 - Moderna risk series) COVID-19 Vaccine (2 - Moderna risk series) [facility] Start: 02-05-2021 COVID-19 Vaccine (3 - Moderna risk series) COVID-19 Vaccine (3 - Moderna risk series) [facility] Start: 2011 HPV Vaccine (optional start 27-45 years) HPV Vaccine (optional start 27-45 years) [facility] Start: 2003 DTaP,Tdap and Td Vaccines (1 - Tdap) DTaP,Tdap and Td Vaccines (1 - Tdap) [facility] Start: 2003 Shingles (RZV) Vaccine (1 of 2) Shingles (RZV) Vaccine (1 of 2) [facility] Start: 2003 Shingrix Vaccine (1 of 2) Shingrix Vaccine (1 of 2) [facility] Start: 2003 Urine microalbumin profile DTaP,Tdap,Td Vaccine (1 - Tdap) [facility] Start: 2002 Adult BMI Screening Adult BMI Screening [facility] Start: 2002 HIV screening HIV Screening [facility] Start: 2002 Tetanus + diphtheria + acellular pertussis vaccine (product) [facility] Start: 1996 Depression Screening Depression Screening [facility] Start: 1996 Tobacco Screening Tobacco Screening [facility] Start: 1990 Pneumococcal vaccination [facility] Start: 1990 [facility] Start: 1989 COVID-19 Vaccine (#1) COVID-19 Vaccine (#1) [facility] Start: 1989 COVID-19 Vaccine (1) COVID-19 Vaccine (1) [facility] Start: 1989 [facility] Start: 03-18-1985 COVID-19 Vaccine (#1) COVID-19 Vaccine (#1) [facility] Start: 1984 Tobacco Counseling Tobacco Counseling [facility] End: 08-14-2023 Alpha-fetoprotein serum ALPHA FETOPROTEIN TUMOR MARKER Lab Routine Iron deficiency anemia, unspecified iron deficiency anemia type Alcoholic cirrhosis, unspecified whether ascites present (HCC) 1 Occurrences starting 08/14/2022 until 08/14/2023 [facility] Comment on above: 1 Occurrences starting 08/14/2022 [...] EST [facility] Assay of haptoglobin quantitative [employer] Work Phone: End: 03-13-2023 Assay of [...] Routine Dysuria 08/14/2022 12:17 PM EST [employer] Work Phone: Basic metabolic 2000 panel [...] Occurrences starting 11/12/2022 until 11/13/2023, 1 completed [facility] Comment on above: 6 Occurrences starting 11/12/2022 until 11/13/2023, 1 completed CBC panel - Blood by Automated count [facility] End: 08-14-2023 CBC panel - Blood by [...] starting 03/13/2022 until 03/13/2023, 1 completed THE [email or web address] Work Phone: Comment on above: monthly for 12 Occurrences starting 03/2022 until 03/13/2023, 1 completed End: 11-13-2023 CBC W Auto Differential panel - Blood COMPLETE BLOOD COUNT W/DIFF Lab STAT 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) 6 Occurrences starting 11/12/2022 until 11/13/2023, 1 completed THE [email or web address] Work Phone: Comment on above: 6 Occurrences starting 11/12/2022 until 11/13/2023, 1 completed Creatine kinase total CREATINE K INASE Lab Routine Muscle soreness Ordered: 08/29/2022 [employer] Work Phone: Comment on above: Ordered: 08/29/2022 ESOPHAGOGASTRODUODEN OSCOPY, GENERAL ANESTHESIA [facility] Hepatic function panel THE [employer] Work Phone: End: 03-13-2023 Hepatic function [...] UNCTION PANEL Lab Routine Nausea Ordered: 10/27/2022 [facility] [...] antibody (HCC) 08/25/2022 12:41 PM EST [facility]fe hemochromatosis gene anal common variants HEMOCHROMATOSIS DNA TEST Lab Routine Increased storage iron 11/13/2022 11:58 AM EST [facility] Lactate dehydrogenase ldh [facility] End: 03-13-2023 Lactate dehydrogenase ldh LDH [...] Occurrences starting 11/12/2022 until 11/13/2023, [address] [facility] Comment on above: 6 Occurrences starting 11/12/2022 until 11/13/2023, [address] [facility] End: 08-14-2023 Prothrombin time PROTHROMBIN TIME AND INR Lab Routine Iron deficiency anemia, unspecified iron deficiency anemia type Alcoholic cirrhosis, unspecified whether ascites present (HCC) 1 Occurrences starting 08/14/2022 until 08/14/2023 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) 08/25/2022 12:41 PM EST [facility] Unlisted chemistry procedure MIS CELLANEOUS SEND OUT TEST Lab Routine Alcoholic hepatitis without ascites Alcoholic cirrhosis of liver without ascites (HCC) 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 01-08-2021 Moderna Monovalent (12+ yrs) COVID-19 vaccine, mRNA, spike protein, LNP, PF, 100 mcg/0.5 mL (TIJ=016) Marcello Ibanez MD Work Phone: [facility] 12-11-2020 Moderna Monovalent (12+ yrs) COVID-19 vaccine, mRNA, spike protein, LNP, PF, 100 mcg/0.5 mL (NQL=530) Marcello Ibanez MD Work Phone: [facility] NEGATED: Highlighted row has not occurred!06-09-2024 influenza virus vaccine, unspecified formulation Mario Evans [facility] NEGATED: Highlighted row has not occurred!08-26-2023 influenza virus vaccine, unspecified formulation Loreta Cummings [facility] Payers Date Payer Category Payer Self-pay [id number] 2023 Private Health Insurance [employer] [id number] 2012 Unknown [id number] [id number] .[id number] 2012 Unknown [id number] 2.840.1.861295.19 1984 Unknown [id number] .1.495763.3.579.2. 727 1984 Unknown [id number] 2.16840.1.801169.3.579.2. 727 1984 Unknown [id number] 2.16840.1.358075.3.579.2. 727 1984 Unknown [id number] 2.16840.1.742126.3.579.2. 1286 1984 Unknown [id number] 2.16840.1.225678.3.579.2. 1286 1984 Unknown [id number] 2.16.840.1.838246.3.579.2. 6 1984 Unknown [id number] 2.16.840.1.275363.3.579.2. 1285 1984 Unknown [id number] 2.16.840.1.871428.3.579.2. 1285 1984 Unknown [id number] 2.16.840.1.562869.3.579.2. 1984 Unknown [id number] 2.16.840.1.991056.3.579.2. 1984 Unknown [id number] 2.16.840.1.493815.3.579.2. 1984 Unknown [id number] 2.16.840.1.900785.3.579.2 1984 Unknown [id number] 2.16.840.1.993498.3.579.2 1984 Unknown [id number] 2.16.840.1.202737.3.579.2 1984 Unknown [id number] 2.16.840.1.949574.3.579.2 1984 Unknown [id number] 2.16.840.1.264686.3.579.2. 1984 Unknown [id number] 2.16.840.1.572873.3.579.2. 1984 Unknown [id number] 2.16.840.1.453783.3.579.2 1984 Unknown [id number] 2.16.840.1.152940.3.579.2. 1984 Unknown [id number] 2.16.840.1.457095.3.579.2. 1984 Unknown [id number] 2.16.840.1.931957.3.579.2 1984 Unknown [id number] 2.16.840.1.917586.3.579.2 1984 Unknown [id number] 2.16.840.1.450698.3.579.2 1984 Unknown [id number] 2.16.840.1.138885.3.579.2 1984 Unknown [id number] 2.16.840.1.874259.3.579.2 1984 Unknown [id number] 2.16.840.1.654543.3.579.2 1984 Unknown [id number] 2.16.840.1.155672.3.579. 1984 Unknown [id number] 2.16.840.1.814193.3.579.2 1984 Unknown [id number] 2.16.840.1.320810.3.579. 1984 Unknown [id number] 2.16.840.1.523929.3.579.2 1984 Unknown [id number] 2.16.840.1.985993.3.579.2 1984 Unknown [id number] 2.16.840.1.996793.3.579.2 1984 Unknown [id number] 2.16.840.1.220974.3.579.2 1984 Unknown [id number] 2.16.840.1.431101.3.579.2 1984 Unknown [id number] 2.16.840.1.685974.3.579.2 1984 Unknown [id number] 2.16.840.1.680294.3.579.2 1984 Unknown [id number] 2.16.840.1.572284.3.579.2. 727 1984 Unknown [id number] 2.16.840.1.230057.3.579.2. 727 1984 Unknown [id number] 2.16.840.1.094497.3.579.2. 727 1984 Unknown [id number] 2.16.840.1.714757.3.579.2. 727 1984 Unknown [id number] 2.16.840.1.191402.3.579.2. 727 1984 Unknown [id number] 2.16.840.1.919319.3.579.2. 727 1984 Unknown [id number] 2.16.840.1.374830.3.579.2. 727 1984 Unknown [id number] 2.16.840.1.100897.3.579.2. 727 1984 Unknown [id number] 2.16.840.1.085078.3.579.2. 1259 Social History Date Type Detail Facility Tobacco Tobacco smoking consumption unknown [facility] Comment on above: daily chew pt alvinies Start: 12-30-2023 End: 05-12-2024 Sex Assigned At Male [facility] Start: 1984 [facility] stat [facility] Tobacco smoking consumption unknown [facility] Start: 08-14-2022 End: 12-21-2024 Tobacco smoking status [facility]-sm[facility] Comment on above: quit cigarettes 9 ye arsago cherry, quit 9 years ago Start: 09-07-2002 End: 09-17-2008 History of tobacco use Current smoker [facility] Start: 09-07-2002 End: 09-17-2008 History of tobacco use Cigarette Smoker [facility] Start: 08-14-2022 End: 04-21-2024 Tobacco use and exposure User of smokeless tobacco [facility] History of tobacco use Chews Tobacco [facility] Start: 08-05-2022 End: 12-16-2022 Exposure to SARS-CoV-2 (event) Not sure [facility] Start: 08-19-2022 End: 08-29-2022 Exposure to SARS-CoV-2 (event) Unable to assess [facility] Work Phone: Tobacco smoking status [facility] Tobacco smoking status Smokeless tobacco user within last 30 days [facility] Comment on above: quit cigarettes 9 ye ken carey, quit 9 years ago Start: 12-30-2023 Alcohol intake Current drinke r of alcohol (finding) [facility] Start: 12-30-2023 End: 05-12-2024 Alcohol intake [facility] Start: 12-30-2023 Tobacco Comment Once every cou ple of weeks [facility] Within the last year , have [...] [facility] Start: 02-27-2023 Education 12 [facility] Start: 04-14-2024 Tobacco smoking stat us NHIS Never smoked tobacco [facility] Start: 04-14-2024 Tobacco use and exposure Former smokeless tobacco user [facility] Start: 04-14-2024 Alcoholic beverage intake Defer [facility] History of tobacco use Snuff User [facility] Start: 04-21-2024 End: 05-12-2024 Alcoholic beverage intake Ex-drinker (finding) [facility] Start: 04-21-2024 Tobacco Comment 2 tins per week [facility] Start: 04-21-2024 Alcohol Comment quit 2020 [facility] Start: 12-19-2009 Sex Male (finding) [facility] Medical Equipment Procedure Code Equipment Code Equipment [...] and able to swallow. [Order 4 End] [id number] Start: 01-17-2022 Functional Status Date Assessment Result Facility 01-12-2025 Functional Status N/A [facility] 01-03-2025 Functional Status N/A [facility] 12-20-2024 Functional Status N/A [facility] 11-21-2024 Functional Status N/A [facility] 11-18-2024 Functional Status N/A [facility] 10-26-2024 Functional Status N/A [facility] 10-05-2024 Functional Status N/A [facility] 08-19-2024 Functional Status N/A [facility] 06-09-2024 Functional Status N/A [facility] 05-12-2024 Functional Status N/A [facility] 04-29-2024 Functional Status N/A [facility] 03-17-2024 Functional Status No [facility] 01-27-2024 Functional Status N/A [facility] 12-23-2023 Functional Status N/A [facility] 12-11-2023 Functional Status No [facility] 12-11-2023 Functional Status [facility] 11-11-2023 Functional Status N/A [facility] 10-28-2023 Functional Status N/A [facility] 09-21-2023 Functional Status N/A [facility] 09-01-2023 Functional Status N/A [facility] 08-26-2023 Functional Status N/A [facility] 07-24-2023 Functional Status N/A [facility] 06-19-2023 Functional Status N/A [facility] 03-22-2023 Functional Status N/A [facility] 02-18-2023 Functional Status N/A [facility] 02-17-2022 Functional Status N/A [facility] Clinical Notes 12-07-2019 to 01-24-2025 Kenn Hickey, PhD - 01/24/2025 9:00 AM EDT Note Date & Type Note Facility 01-24-2025 History of Presen t illness Narrative Images from the original note were not included. Kenn Hickey, PhD Spinal Cord Stimulator/Pain Pump Candidate Evaluation Will Ralph is a 39 y.o. male presents in office for a Spinal Cord Stimulator/Pain Pump Candidate Evaluation. PRESENTING PROBLEM: Pain radiating down the right lower extremity, less so on the left, that has been gradually worsening over the past 3+ years. Symptoms began around the time of complicated ulcer recovery including wound care and subsequent residual nerve damage. Pain intensity ranges from 3-7/10 depending on activity. Worse when standing for extended periods of time. Pain is significantly interfering with day-to-day activities. Conservative management has failed to yield any long-term relief. Referred for psychological clearance to complete spinal cord stimulator implant. MEDICAL HISTORY/MEDICATION: HPI MEDICATIONS: No current outpatient medications EDUCATION/VOCATION/SOCIAL: [place] language Nigerien. Completed high school education without any academic struggles. 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 Single, never , no children. Resides alone. ASSESSMENT: FINDINGS: Able to demonstrate reasonable understanding of procedure: Yes, able to appreciate procedure as well as weigh associated pros and cons. No concerns regarding implantation of device. Questions addressed. Realistic post-surgical expectations: Yes, hopeful for any form of positive response in order to be more comfortable and physically active. Ability to operate device: Yes. Family/social support: Yes. History of alcohol/substance abuse: Remote history of overusing alcohol, none for the past 3 years. No history of illicit substance use or smoking. PSYCHIATRIC FINDINGS: Modified Somatic Perception Questionnaire= 6 (normal). Modified Zung Depression Index= 12 (normal). Overall Distress and Risk Assessment Method (DRAM)= normal. Smith Anxiety Inventory= 4 (normal). Pain Disability Index= 13; Mild to moderately interfering with occupation, Mildly impacting family/home responsibilities, recreation, and social activity. Minimal impact on sexual behavior, self-care, and sleep. COGNITION: Conversationally appears average. Denied any concerns with cognition and memory. Independent in ADLs, housework, finances, medication, and driving. Physically active at work. CONCLUSIONS: Cognitively and psychiatrically clear to participate in above requested procedure. Thank you for allowing me to participate in the care of this individual. Please contact me with any questions at [phone]. documented in this encounter [facility] 01-12-2025 Evaluation + Plan note Extrac shawn from: Title:chronic pain Author:Evelio Carr DO Date:01/12/25 Patient is presenting with a complex medical history inclusive of cirrhosis, history of venous stasis ulcer of the right lower extremity, history of EtOH abuse- states no use in past 3 years. 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 This pain can be a sharp/stabbing sensation and causes difficulty with ambulation secondary to pain levels. Nothing is particularly helped his pain other than oxycodone per his report, he has tried acetaminophen as well as NSAIDs in the past without relief and was told that he should not take these medications due to his liver function. We did have a lengthy discussion about medications and his overall medical history as well. Gabapentin has not helped and we will discontinue this medication. On05/2025 he underwent a right saphenous nerve block with 90% relief for 2 to 3 hours. His pain was not completely gone but it was significantly better for those few hours and then he still had about 50% relief at the 6-hour andria. He feels that this was beneficial enough to warrant moving forward with this stimulator trial of his right saphenous nerve RUSS Score: 34% PHQ-2: 2 Patient denies any symptoms of progressively worsening upper/lower extremity weakness, progressively worsening gait abnormality, new onset bowel/bladder incontinence/ urinary retention, or saddle anesthesia. No new or worsening symptoms of fever, chills, night sweats. 14 Point Review of systems negative unless otherwise noted. General: No acute distress. Patient appears well-nourished. HEENT: Head is normocephalic and external ears are normal in appearance. Cardiovascular: No signs of poor perfusion and no peripheral edema Pulmonary: Nonlabored breathing, symmetric chest movement. GI: Abdomen nondistended Integumentary: No lesions Neurologic: Alert, oriented x3. 5/5 strength grossly in the bilateral upper extremities. 5/5 strength grossly in the bilateral lower extremities. Sensation intact to light touch in the bilateral lower extremities. MSK/Special Testing: Negative Jorden sign bilaterally, negative seated straight leg raise test bilaterally. No noted allodynia, but there is tenderness palpation of the right lower extremity medial calf distribution of the saphenous nerve. 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 Risk and benefits of appropriate procedures and medications were reviewed as well with patient, who voiced understanding and agreeance. Patient was counseled on appropriate use of opioids if prescribed or renewed today and naloxone was offered to patient if opioids were prescribed or maintained at this visit. PHQ-2 scoring reviewed with patient and discussed seeking treatment for depression or mood disorder as appropriate. Patient was counseled on smoking cessation and/or continuing to abstain from nicotine/tobacco products as appropriate based on history; as smoking/nicotine can contribute to increased pain overall and decreased wound healing. Patient counseled on maintaining a healthy BMI as part of the total treatment of their pain and to reduce stress/strain on joints. Patient invited to return or call with any questions or concerns that arise. Future Appointments Appointment Date:04/07/2025 08:40:00 AM Scheduled Provider:Vic Carrion Location:[facility] Appointment Type: Open Appointment Date:09/28/2025 02:40:00 PM Scheduled Provider:Kavon Lu DO [facility] Appoint[facility] Type:ONC Office Visit 20 (FT) Future Scheduled Tests Laboratory* MELLISA and PE, Serum 09/25/25 * Methylmalonic Acid 09/25/25 * PSA Screen, Total 08/19/24 * PT & PTT 12/26/24 * PT & PTT 03/27/25 * PT & PTT 06/27/25 * PT & PTT 09/27/25 * PT & PTT 05/08/25 * Free K+L Lt Chains,Qn,S 09/25/25 * Alpha Fetoprotein Tumor Marker 05/08/25 * Ammonia Level 08/19/24 * CBC w/ Auto Diff 12/26/24 * CBC w/ Auto Diff 03/27/25 * CBC w/ Auto Diff 06/27/25 * CBC w/ Auto Diff 09/27/25 * CBC w/ Auto Diff 05/08/25 * CBC w/ Auto Diff 11/21/24 * Comprehensive Metabolic Panel 12/26/24 * Comprehensive Metabolic Panel 03/27/25 * Comprehensive Metabolic Panel 06/27/25 * Comprehensive Metabolic Panel 09/27/25 * Comprehensive Metabolic Panel 05/08/25 * Comprehensive Metabolic Panel 11/21/24 * Folate Level 09/25/25 * Haptoglobin 12/26/24 * Haptoglobin 03/27/25 * Haptoglobin 06/27/25 * Haptoglobin 09/27/25 * Lipid Panel 08/19/24 * PT 11/21/24 * Reticulocyte Count 12/26/24 * Reticulocyte Count 03/27/25 * Reticulocyte Count 06/27/25 * Reticulocyte Count 09/27/25 * Vitamin B12 Level 09/25/25 Radiology* US Liver 05/08/25 [facility] 05-08-2025 NoteConsultation Note Patient is presenting with a complex medical history inclusive of cirrhosis, history of venous stasis ulcer of the right lower extremity, history of EtOH abuse-states no use in past 3 years. 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 This pain can be a sharp/stabbing sensation and causes difficulty with ambulation secondary to pain levels. Nothing is particularly helped his pain other than oxycodone per his report, he has tried acetaminophen as well asNSAIDs in the past without relief and was told that he should not take these medications due to hisliver function. We did have a lengthy discussion about medications and his overall medical history as well. Gabapentin has not helped and we will discontinue this medication. On05/2025 he underwent a right saphenous nerve block with 90% relief for 2 to 3 hours. His pain was not completely gone but it was significantly better for those few hours and then he still had about 50% relief at the 6-hour andria. He feels that this was beneficial enough to warrant moving forward with this stimulator trial of his right saphenous nerve RUSS Score: 34% PHQ-2: 2 Patient denies any symptoms of progressively worsening upper/lower extremity weakness, progressively worsening gait abnormality, new onset bowel/bladder incontinence/ urinary retention, or saddle anesthesia. No new or worsening symptoms of fever, chills, night sweats. 14 Point Review of systems negative unless otherwise noted. General: No acute distress. Patient appears well-nourished. HEENT: Head is normocephalic and external ears are normal in appearance. Cardiovascular: No signs of poor perfusion and no peripheral edema Pulmonary: Nonlabored breathing, symmetric chest movement. GI: Abdomen nondistended Integumentary: No lesions Neurologic: Alert, oriented x3. 5/5 strength grossly in the bilateral upper extremities. 5/5 strength grossly in the bilateral lower extremities. Sensation intact to light touch in the bilateral lower extremities. MSK/Special Testing: Negative Jorden sign bilaterally, negative seated straight leg raise test bilaterally. No noted allodynia, but there is tenderness palpation of the right lower extremity medialcalf distribution of the saphenous nerve. 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 Risk and benefits of appropriate procedures and medications were reviewed as well with patient, who voiced understanding and agreeance. Patient was counseled on appropriate use of opioids if prescribed or renewed today and naloxone was offered to patient if opioids were prescribed or maintained at this visit. PHQ-2 scoring reviewed with patient and discussed seeking treatment for depression or mood disorder as appropriate. Patient was counseled on smoking cessation and/or continuing to abstain from nicotine/tobacco products as appropriate based on history; as smoking/nicotine can contribute to increased pain overall and decreased wound healing. Patient counseled on maintaining a healthy BMI as part of the total treatment of their pain and to reduce stress/strain on joints. Patient invited to return or call with any questions or concerns that arise.[facility] HospitalComment on above:Result Comment: Electronically Signed By: Evelio Carr DO\.br\Date and Time Signed: 01/12/25 09:45 [id number] Evaluation + Plan noteExtracted from: Title:Right ultrasound-guide d saphenous nerve block Author:Evelio Carr DO Date:01/03/25 Diagnosis: G57.80, disorders saphenous nerve Procedure: Right saphenous nerve block under ultrasound guidance Anesthesia: Local Complications: None Procedure details: Patient was brought in the procedure area and placed in the prone position. Monitors were placed and monitored throughout. The patient's procedure medial thigh was prepped using ChloraPrep and sterile towels were utilized. Next, an ultrasound was used to identify the saphenous nerve in the adductor compartment. Next, a skin needle was utilized to anesthetize the needle insertion site with 2.0% lidocaine. Then, a 22-gauge 3.5 inch spinal needle was utilized and advanced under ultrasound to the appropriate plane, visualization of 0.5% bupivacaine spread was noted around the sural nerve. Care was taken to avoid the vascular structures in this region. 1.5mL of 0.5% bupivacaine was utilized to anesthetize the saphenous nerve. The needles were then removed. The patient was then transferred to the recovery area in stable condition. Follow-Up: Patient tolerated the procedure well without complications. Full postprocedure plan was discussed with the patient and patient voiced understanding. Addendum by Milo Carr DO, rd on January 03, 2025 11:55 EDT Correction to the above procedure: Right diagnostic saphenous nerve block under ultrasound guidance. Future Appointments Appointment Date:01/12/2025 08:15:00 AM Scheduled Provider:Evelio Carr DO Location:[facility] Appointment Type:Pain Management - Follow Up (FT) Appointment Date:04/07/2025 08:40:00 AM Scheduled Provider:Vic Carrion Location:[facility] Appointment Type:FM Open Appointment Date:09/28/2025 02:40:00 PM Scheduled Provider:Kavon Lu DO [facility] Type:ONC Office Visit 20 (FT) Future Scheduled Tests Laboratory* MELLISA and PE, Serum 09/25/25 * Methylmalonic Acid 09/25/25 * PSA Screen, Total 08/19/24 * PT & PTT 12/26/24 * PT & PTT 03/27/25 * PT & PTT 06/27/25 * PT & PTT 09/27/25 * PT & PTT 05/08/25 * Free K+L Lt Chains,Qn,S 09/25/25 * Alpha Fetoprotein Tumor Marker 05/08/25 * Ammonia Level 08/19/24 * CBC w/ Auto Diff 12/26/24 * CBC w/ Auto Diff 03/27/25 * CBC w/ Auto Diff 06/27/25 * CBC w/ Auto Diff 09/27/25 * CBC w/ Auto Diff 05/08/25 * CBC w/ Auto Diff 11/21/24 * Comprehensive Metabolic Panel 12/26/24 * Comprehensive Metabolic Panel 03/27/25 * Comprehensive Metabolic Panel 06/27/25 * Comprehensive Metabolic Panel 09/27/25 * Comprehensive Metabolic Panel 05/08/25 * Comprehensive Metabolic Panel 11/21/24 * Folate Level 09/25/25 * Haptoglobin 12/26/24 * Haptoglobin 03/27/25 * Haptoglobin 06/27/25 * Haptoglobin 09/27/25 * Lipid Panel 08/19/24 * PT 11/21/24 * Reticulocyte Count 12/26/24 * Reticulocyte Count 03/27/25 * Reticulocyte Count 06/27/25 * Reticulocyte Count 09/27/25 * Vitamin B12 Level 09/25/25 Radiology* US Liver 05/08/25 [facility] 04-29-2025 NoteOperative Report Diagnosis: G57.80, disorders saphenous nerve Procedure: Right saphenous nerve block under ultrasound guidance Anesthesia: Local Complications: None Procedure details: Patient was brought in the procedure area and placed in the prone position. Monitors were placed and monitored throughout. The patient's procedure medial thigh was prepped using ChloraPrep and sterile towels were utilized. Next, an ultrasound was used to identify the saphenous nerve in the adductorcompartment. Next, a skin needle was utilized to anesthetize the needle insertion site with 2.0% lidocaine. Then, a 22-gauge 3.5 inch spinal needle was utilized and advanced under ultrasound to the appropriate plane, visualization of 0.5% bupivacaine spread was noted around the sural nerve. Care was taken to avoid the vascular structures in this region. 1.5mL of 0.5% bupivacaine was utilized to an esthetize the saphenous nerve. The needles were then removed. The patient was then transferred to the recovery area in stable condition. Follow-Up: Patient tolerated the procedure well without complications. Full postprocedure plan was discussed with the patient and patient voiced understanding. Correction to the above procedure: Right diagnostic saphenous nerve block under ultrasound guidance.[facility] HospitalComment on above:Result Comment: Electronically Signed By: Evelio Carr DO.br\Date and Time Signed: 01/03/25 11:55 [id number] NotePatient Education Cardiovascular Hypertension, Adult Hypertension is another name for high blood pressure. High blood pressure forces your heart to workharder to pump blood. This can cause problems over time. There are two numbers in a blood pressure reading. There is a top number (systolic) over a bottom number (diastolic). It is best to have a blood pressure that is below 120/80. What are the causes? The cause of this condition is not known. Some other conditions can lead to high blood pressure. What increases the risk? Some lifestyle factors can make you more likely to develop high blood pressure: ??? Smoking. ??? Not getting enough exercise or physical activity. ??? Being overweight. ??? Having too much fat, sugar, calories, or salt (sodium) in your diet. ??? Drinking too much alcohol. Other risk factors include: ??? Having any of these conditions: ? Heart disease. ? Diabetes. ? High cholesterol. ? Kidney disease. ? Obstructive sleep apnea. ??? Having a family history of high blood pressure and high cholesterol. ??? Age. The risk increases with age. ??? Stress. What are the signs or symptoms? High blood pressure may not cause symptoms. Very high blood pressure (hypertensive crisis) may cause: ??? Headache. ??? Fast or uneven heartbeats (palpitations). ??? Shortness of breath. ??? Nosebleed. ??? Vomiting or feeling like you may vomit (nauseous). ??? Changes in how you see. ??? Very bad chest pain. ??? Feeling dizzy. ??? Seizures. How is this treated? This condition is treated by making healthy lifestyle changes, such as: ? Eating healthy foods. ? Exercising more. ? Drinking less alcohol. ??? Your doctor may prescribe medicine if lifestyle changes do not help enough and if: ? Your top number is above 130. ? Your bottom number is above 80. ??? Your personal target blood pressure may vary. Follow these instructions at home: Eating and drinking ??? If told, follow the DASH eating plan. To follow this plan: ? Fill one half of your plate at each meal with fruits and vegetables. ? Fill one fourth of your plate at each meal with whole grains. Whole grains include whole-wheat pasta, brown rice, and whole-grain bread. ? Eat or drink low-fat dairy products, such as skim milk or low-fat yogurt. ? Fill one fourth of your plate at each meal with low-fat (lean) proteins. Low- fat proteins includefish, chicken without skin, eggs, beans, and tofu. ? Avoid fatty meat, cured and processed meat, or chicken with skin. ? Avoid pre-made or processed food. ??? Limit the amount of salt in your diet to less than 1,500 mg each day. ??? Do not drink alcohol if: ? Your doctor tells you not to drink. ? You are , may be , or are planning to become . ??? If you drink alcohol: ? Limit how much you have to: ? 0?1 drink a day for women. ? 0?2 drinks a day for men. ? Know how much alcohol is in your drink. In the [place] one drink equals one 12 oz bottle of beer (355 mL), one 5 oz glass of wine (148 mL), or one 1? oz glass of hard liquor (44 mL). Lifestyle ??? Work with your doctor to stay at a healthy weight or to lose weight. Ask your doctor what the best weight is for you. ??? Get at least 30 minutes of exercise that causes your heart to beat faster (aerobic exercise) most days of the week. This may include walking, swimming, or biking. ??? Get at least 30 minutes of exercise that strengthens your muscles (resistance exercise) at least 3 days a week. This may include lifting weights or doing Pilates. ??? Do not smoke or use any products that contain nicotine or tobacco. If you need help quitting, ask your doctor. ??? Check your blood pressure at home as told by your doctor. ??? Keep all follow-up visits. Medicines ??? Take [id number] and prescription medicines only as told by your doctor. Follow directionscarefully. ??? Do not skip doses of blood pressure medicine. The medicine does not work as well if you skip doses. Skipping doses also puts you at risk for problems. ??? Ask your doctor about side effects or reactions to medicines that you should watch for. Contact a doctor if: ??? You think you are having a reaction to the medicine you are taking. ??? You have headaches that keep coming back. ??? You feel dizzy. ??? You have swelling in your ankles. ??? You have trouble with your vision. Get help right away if: ??? You get a very bad headache. ??? You start to feel mixed up (confused). ??? You feel weak or numb. ??? You feel faint. ??? You have very bad pain in your: ? Chest. ? Belly (abdomen). ??? You vomit more than once. ??? You have trouble breathing. These symptoms may be an emergency. Get help right away. Call 911. ??? Do not wait to see if the symptoms will go away. ??? Do not drive yourself to the hospital. Summary ??? Hypertension is a (more content not included)...[facility] 12-20-2024 Evaluation + Plan noteExtracted from: Title:Pain Managment Follow up Author:Sadie Briggs Date:12/20/24 Impression and Plan Patient is a 39-year-old male. He is presenting today after undergoing a lumbar MRI. We reviewed this. We also reviewed his EMG once again. At this time, he has pain from the right lower extremity from the knee down and this is suspicious for saphenous neuritis. He is using gabapentin with some relief but not now. Unfortunate, the other conservative treatments that he has trialed have not given him the relief he is looking for. He has the pain that he rates a 5/10. This affects his ambulatory status. Affects his quality life. Affects his activities and affects his ability to do things he wants to do. At this time, I recommended a right saphenous nerve block to be done under fluoroscopy for diagnostic purposes. Procedure was discussed. Risk and benefits were discussed. Patient will follow-up 1 week after the injection for reevaluation. Clinic sooner if necessary he will continue on gabapentin. OARRS reviewed. Does not require refill. He will call he has. Follow-up as above mention. RUSS score: 40%. As part of providing excellent, safe, comprehensive care, the following was completed at our patient's visit: Reviewed patient's medication reconciliation. Reviewed screening for depression, screening for tobacco use, and patient's Oswestry disability index results. For concerning screenings had a discussion with the patient, provided patient education, and recommended follow-up with primary care provider when appropriate. Patient noted with risk of falling received education on strength, gait, and balance training to prevent future risk of falling. Future Appointments Appointment Date:12/21/2024 08:20:00 AM Scheduled Provider:Vic Carrion Location:[facility] Appointment Type: Open Appointment Date:04/07/2025 08:40:00 AM Scheduled Provider:Vic Carrion Location:[facility] Appointment Type: Open Appointment Date:09/28/2025 02:40:00 PM Scheduled Provider:Kavon Lu DO Location:.[facility] Appointment Type:ONC Office Visit 20 (FT) Future Scheduled Tests Laboratory* MELLISA and PE, Serum 09/25/25 * Methylmalonic Acid 09/25/25 * PSA Screen, Total 08/19/24 * PT & PTT 12/26/24 * PT & PTT 03/27/25 * PT & PTT 06/27/25 * PT & PTT 09/27/25 * PT & PTT 05/08/25 * Free K+L Lt Chains,Qn,S 09/25/25 * Alpha Fetoprotein Tumor Marker 05/08/25 * Ammonia Level 08/19/24 * CBC w/ Auto Diff 12/26/24 * CBC w/ Auto Diff 03/27/25 * CBC w/ Auto Diff 06/27/25 * CBC w/ Auto Diff 09/27/25 * CBC w/ Auto Diff 05/08/25 * CBC w/ Auto Diff 11/21/24 * Comprehensive Metabolic Panel 12/26/24 * Comprehensive Metabolic Panel 03/27/25 * Comprehensive Metabolic Panel 06/27/25 * Comprehensive Metabolic Panel 09/27/25 * Comprehensive Metabolic Panel 05/08/25 * Comprehensive Metabolic Panel 11/21/24 * Folate Level 09/25/25 * Haptoglobin 12/26/24 * Haptoglobin 03/27/25 * Haptoglobin 06/27/25 * Haptoglobin 09/27/25 * Lipid Panel 08/19/24 * PT 11/21/24 * Reticulocyte Count 12/26/24 * Reticulocyte Count 03/27/25 * Reticulocyte Count 06/27/25 * Reticulocyte Count 09/27/25 * Vitamin B12 Level 09/25/25 Radiology* US Liver 05/08/25 [facility] 04-15-2025 NoteConsultation Note Patient: WILL RALPH Age: 39 years Sex: Male : 1985 Associated Diagnoses: None Author: Sadie Loco PA-C Subjective Chief complaint 12/20/2024 8:21 EDT right leg pain . Patient is a 39-year-old male. He has a past medical history significant for cirrhosis, history of alcohol abuse but he has been sober for a few years, history of venous stasis ulcer on the right lower extremity and is here today with complaints of continued right leg pain. This is from the knee down. He also has intermittent back pain but at this time, this is not his rate limiting factor. It isthe pain in the right leg from the knee down. He rates it a 5/10. It affects his ambulatory status.Affects his quality of life. Affects his activities. He is not able to use Tylenol due to liver issues and he is used NSAIDs in the past that did not help him. He is using gabapentin 1200 mg 3 times a day but he does not feel like it is giving him enough relief. This is affecting his ambulatory status and affecting his ability to do things he wants to do. He had a recent EMG and he then had an MRI. He is here today to review this and discuss options Health Status Allergies: Allergic Reactions (Selected) Severity Not Documented Amoxicillin- Unknown. Definity- Back pain. Penicillin- Unknown., Allergies (3) Active Severity Reaction penicillin unknown amoxicillin Unknown Definity Back Pain Current medications: (Selected) Prescriptions Prescribed BP cuff device and appropriate size please: BP cuff device and appropriate size please, See Instructions, 1 EA, 0, BP Device/ machine and cuff (size appropriate), Supply Coreg 6.25 mg Tab: 6.25 mg = 1 tab(s), Oral, BID, # 180 tab(s), Refills(s) 3, Pharmacy: [facility] #[id number], 170, cm, 10/05/24 9:01:00 EST, Height/Length Dosing, 78.5, kg, 10/05/24 9:11:00 EST, Weight Dosing Narcan 4 mg/0.1 mL nasal spray: 4 mg, Nasal, As Directed, for suspected overdose symptoms, # 1 kit(s), Refills(s) 0, Pharmacy: [id number], 170, cm, 10/05/24 9:01:00 EST, Height/LengthDosing, 78.5, kg, 10/05/24 9:11:00 EST, Weight Dosing Zofran ODT 4 mg Tab: 4 mg = 1 tab(s), Oral, TID, PRN Nausea, # 60 tab(s), Refills(s) 0, Pharmacy: [facility] #[id number], 170, cm, 05/12/24 15:39:00 EDT, Height/Length Dosing, 73, kg, 05/12/24 15:39:00 EDT, Weight Dosing oxyCODONE 5 mg Tab: 0.5 tab, Oral, q6hr, PRN for pain, for leg pain- severe pain only, # 28 tab(s),Refills(s) 0, Pharmacy: [facility] #[id number], 170, cm, 10/05/24 9:01:00 EST, Height/Length Dosing, 78.5, kg, 10/05/24 9:11:00 EST, Weight Dosing spironolactone 50 mg Tab: 50 mg = 1 tab(s), Oral, Daily, X 90 day(s), # 90 tab(s), Refills(s) 3, Pharmacy: [facility] #[id number], 170, cm, 11/21/24 9:32:00 EDT, Height/Length Dosing, 77.5, kg, 11/21/24 9:32:00 EDT, Weight Dosing Documented Medications Documented Misc DME Prescription: See Instructions, Reading SAP Dressing 4 x 4 dressing Misc DME Prescription: See Instructions, LiquidIV hydration Misc DME Prescription: See Instructions, Muscle & joint balm CBD 880mg furosemide 20 mg Tab: = 1 tab(s), Oral, Daily, PRN Edema, Refills(s) 0 magnesium citrate: Oral, Refill(s) 0, Constipation Problem list: All Problems Thrombocytopenia / SNOMED CT 452605341 / Confirmed Elevated INR / SNOMED CT 5218633242 / Confirmed Smokeless tobacco use / SNOMED CT 2563268511 / Confirmed Hypokalemia / SNOMED CT 73215836 / Confirmed Elevated fasting glucose / SNOMED CT 655455687 / Confirmed Anemia / SNOMED CT 178012868 / Confirmed Alcohol use disorder in remission / SNOMED CT 22117399 / Confirmed Liver cirrhosis, alcoholic / SNOMED CT 9130437205 / Confirmed Venous ulcer of right leg / SNOMED CT 9429683844 / Confirmed Esophageal varices / SNOMED CT 89334889 / Confirmed Dependent edema / SNOMED CT 222323543 / Confirmed Varicose veins of legs / SNOMED CT 996323067 / Confirmed Portal venous hypertension / SNOMED CT 80922647 / Confirmed HTN (hypertension) / SNOMED CT 7860110566 / Confirmed Headache / SNOMED CT 53024576 / Confirmed Nausea / SNOMED CT 1878217388 / Confirmed Cirrhosis / SNOMED CT 40367830 / Confirmed Tobacco user / SNOMED CT 307063910 / Confirmed 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 Severe back pain / SNOMED CT 413142750 / Confirmed Diarrhea / SNOMED CT 479656973 / Confirmed Cholelithiases / SNOMED CT 486557675 / Confirmed Epigastric pain / SNOMED CT 235246209 / Confirmed Vitamin D deficiency / SNOMED CT 23537959 / Confirmed Abnormal stress test / SNOMED CT 9397601893 / Confirmed Iron deficiency anemia / SNOMED CT 490749294 / Confirmed Superficial thrombophlebitis of leg / SNOMED CT 68578405 / Confirmed Elevated liver enzymes / SNOMED CT 9696901408 / Confirmed Hemolytic anemia / SNOMED CT 958780506 / Confirmed Cellulitis of right leg / SNOMED CT 705242962052086 / Confirmed BMI 26.0-26.9,adult / SNOMED CT 7010279152 (more content not included)...[facility] HospitalComment on above:Result Comment: Electronically Signed By: Sadie Loco PA-C\.chidi\Date and Time Signed: 12/20/24 08:50 [id number] Evaluation + Plan noteExtracted from: Title:Pain Managment Follow up Author:Sadie Briggs Date:11/21/24 Impression and Plan Patient is a 39-year-old male with a past medical history significant for liver cirrhosis, history of alcohol abuse but he has been sober for a few years, history of venous stasis ulcer on the right lower extremity, 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 He is on therapy in the past that has not helped. In fact, he feels like it made him worse. He is not able to use Tylenol due to liver issues and NSAIDs have not helped. At this time, we reviewed his EMG and we discussed different options. I recommend a lumbar x-ray as well as a lumbar MRI scan for possible injection options versus surgical consultation depend on the results. Patient is agreeable. He will follow-up after the imaging for reevaluation and discussion of options. RUSS score: 30%. In the meantime we will continue on his gabapentin. OARRS reviewed. He will call when refills are necessary. Future Appointments Appointment Date:04/07/2025 08:40:00 AM Scheduled Provider:Vic Carrion Location:[facility] Appointment Type:FM Open Appointment Date:09/28/2025 02:40:00 PM Scheduled Provider:Kavon Lu DO Location:.[facility] Appointment Type:ONC Office Visit 20 (FT) Future Scheduled Tests Laboratory* MELLISA and PE, Serum 09/25/25 * Methylmalonic Acid 09/25/25 * O & P Exam, Routine 12/16/23 * PSA Screen, Total 08/19/24 * PT & PTT 12/26/24 * PT & PTT 03/27/25 * PT & PTT 06/27/25 * PT & PTT 09/27/25 * PT & PTT 05/08/25 * Free K+L Lt Chains,Qn,S 09/25/25 * Alpha Fetoprotein Tumor Marker 05/08/25 * Ammonia Level 08/19/24 * CBC w/ Auto Diff 12/26/24 * CBC w/ Auto Diff 03/27/25 * CBC w/ Auto Diff 06/27/25 * CBC w/ Auto Diff 09/27/25 * CBC w/ Auto Diff 05/08/25 * CBC w/ Auto Diff 11/21/24 * Comprehensive Metabolic Panel 12/26/24 * Comprehensive Metabolic Panel 03/27/25 * Comprehensive Metabolic Panel 06/27/25 * Comprehensive Metabolic Panel 09/27/25 * Comprehensive Metabolic Panel 05/08/25 * Comprehensive Metabolic Panel 11/21/24 * Folate Level 09/25/25 * Haptoglobin 12/26/24 * Haptoglobin 03/27/25 * Haptoglobin 06/27/25 * Haptoglobin 09/27/25 * Lipid Panel 08/19/24 * PT 11/21/24 * Reticulocyte Count 12/26/24 * Reticulocyte Count 03/27/25 * Reticulocyte Count 06/27/25 * Reticulocyte Count 09/27/25 * Vitamin B12 Level 09/25/25 Radiology* US Liver 05/08/25 [facility] 03-17-2025 NoteConsultation Note Patient: WILL RALPH Age: 39 years Sex: Male : 1985 Associated Diagnoses: None Author: Sadie Loco PA-C Subjective Chief complaint 11/21/2024 8:32 EDT right lower leg into foot . Patient is a 39-year-old male. He has a past medical history significant for cirrhosis, history of alcohol abuse but he has been sober for a few years, history of venous stasis ulcer on the right lower extremity and is here today with complaints of continued right leg pain. This is from the knee down. He states that he also has intermittent back pain. The pain is worse with standing or walking for any extended period of time. It is a sharp stabbing type discomfort that causes ambulatory issues.He rates his discomfort a 7/10. He has done therapy in the past that he states made his pain worse. He is not able to use Tylenol due to liver issues and he is used NSAIDs in the past that did not help him. He is using gabapentin 1200 mg 3 times a day but he does not feel like it is giving him enough relief. He states that the pain is getting worse and he feels like something is wrong. This is affecting his ambulatory status and affecting his ability to do things he wants to do. He had a recent EMG and he is here today to review this and discuss options Health Status Allergies: Allergic Reactions (Selected) Severity Not Documented Amoxicillin- Unknown. Definity- Back pain. Penicillin- Unknown., Allergies (3) Active Severity Reaction penicillin unknown amoxicillin Unknown Definity Back Pain Current medications: (Selected) Prescriptions Prescribed BP cuff device and appropriate size please: BP cuff device and appropriate size please, See Instructions, 1 EA, 0, BP Device/ machine and cuff (size appropriate), Supply Coreg 6.25 mg Tab: 6.25 mg = 1 tab(s), Oral, BID, # 180 tab(s), Refills(s) 3, Pharmacy: [facility] #[id number], 170, cm, 10/05/24 9:01:00 EST, Height/Length Dosing, 78.5, kg, 10/05/24 9:11:00 EST, Weight Dosing Narcan 4 mg/0.1 mL nasal spray: 4 mg, Nasal, As Directed, for suspected overdose symptoms, # 1 kit(s), Refills(s) 0, Pharmacy: [facility] #[facility], 170, cm, 10/05/24 9:01:00 EST, Height/LengthDosing, 78.5, kg, 10/05/24 9:11:00 EST, Weight Dosing Zofran ODT 4 mg Tab: 4 mg = 1 tab(s), Oral, TID, PRN Nausea, # 60 tab(s), Refills(s) 0, Pharmacy: [facility] #[id number], 170, cm, 05/12/24 15:39:00 EDT, Height/Length Dosing, 73, kg, 05/12/24 15:39:00 EDT, Weight Dosing gabapentin 600 mg Tab: 1,200 mg = 2 tab(s), Oral, TID, X 30 day(s), # 180 tab(s), Refills(s) 0, Pharmacy: [facility] #[facility], 170, cm, 10/26/24 10:30:00 EST, Height/Length Dosing, 78.9, kg, 10/26/24 10:30:00 EST, Weight Dosing oxyCODONE 5 mg Tab: 0.5 tab, Oral, q6hr, PRN for pain, for leg pain- severe pain only, # 28 tab(s),Refills(s) 0, Pharmacy: [facility] #[facility], 170, cm, 10/05/24 9:01:00 EST, Height/Length Dosing, 78.5, kg, 10/05/24 9:11:00 EST, Weight Dosing spironolactone 50 mg Tab: 50 mg = 1 tab(s), Oral, Daily, # 90 tab(s), Refills(s) 3, [facility]acy: [facility] #[id number], 170, cm, 12/23/23 11:10:00 EDT, Height/Length Dosing, 70.3, kg, 12/23/23 11:10:00 EDT, Weight Dosing Documented Medications Documented Misc DME Prescription: See Instructions, Reading SAP Dressing 4 x 4 dressing Misc DME Prescription: See Instructions, LiquidIV hydration Misc DME Prescription: See Instructions, Muscle & joint balm CBD 880mg furosemide 20 mg Tab: = 1 tab(s), Oral, Daily, PRN Edema, Refills(s) 0 magnesium citrate: Oral, Refill(s) 0, Constipation Problem list: All Problems Thrombocytopenia / SNOMED CT 416931115 / Confirmed Elevated INR / SNOMED CT 7298740595 / Confirmed Smokeless tobacco use / SNOMED CT 8974809468 / Confirmed Hypokalemia / SNOMED CT 09742316 / Confirmed Elevated fasting glucose / SNOMED CT 158467745 / Confirmed Anemia / SNOMED CT 041933572 / Confirmed Alcohol use disorder in remission / SNOMED CT 58409368 / Confirmed Liver cirrhosis, alcoholic / SNOMED CT 9031423679 / Confirmed Venous ulcer of right leg / SNOMED CT 0553582461 / Confirmed Esophageal varices / SNOMED CT 35658229 / Confirmed Dependent edema / SNOMED CT 880710393 / Confirmed Varicose veins of legs / SNOMED CT 301262585 / Confirmed Portal venous hypertension / SNOMED CT 73478475 / Confirmed HTN (hypertension) / SNOMED CT 2145860699 / Confirmed Headache / SNOMED CT 10188035 / Confirmed Nausea / SNOMED CT 6860117196 / Confirmed Cirrhosis / SNOMED CT 32864870 / Confirmed Tobacco user / SNOMED CT 321100123 / Confirmed 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 Severe back pain / SNOMED CT 504284180 / Confirmed Diarrhea / SNOMED CT 160931330 / Confirmed Cholelithiases / SNOMED CT 748406641 / Confirmed Epigastric pain / SNOMED CT 173420188 / Confirmed Vitamin D deficiency / SNOMED CT 62557842 / Confirmed Abnormal stress test / SNOMED CT 0039634127 / Confirmed Iron deficiency ane (more content not included)...[facility] Comment on above:Result Comment: Electronically Signed By: Sadie Loco PA-C\.br\Date and Time Signed: 11/21/24 08:59 [id number] NotePatient Education Orthopedics How to Use Cold Therapy Cold therapy, also known as cryotherapy, is a treatment that uses cold temperatures to treat an injury or medical condition. It includes using cold packs or ice packs to reduce pain and swelling. Only use cold therapy if your health care provider approves. What are the risks? Generally, cold therapy is a safe treatment. However, it is not safe for: ??? People who are not able to say they are in pain, such as small children and people who have dementia. ??? People who have certain conditions, such as: ? A problem in the vessels that slows blood flow to the fingers and toes (Raynaud's syndrome). ? Feeling very cold easily (cold hypersensitivity). ? Numbness or lack of feeling in the area being iced. Cold therapy may be unsafe for people who have other conditions. Do not use cold therapy without your health care provider's approval if you have: ??? A heart condition. ??? High blood pressure. ??? Open or healing wounds. ??? An infection. ??? Rheumatoid arthritis. ??? Poor circulation. ??? Diabetes. ??? Certain skin conditions. How do I make a cold pack? When using a cold pack at home to reduce pain and swelling, you can use: ??? A silica gel cold pack that has been left in the freezer. You can buy this online or in stores. ??? A sealable plastic bag that has been filled with crushed ice. ??? A washcloth or paper towels soaked in cold water or ice water. ??? A plastic bag of frozen vegetables. Discard when finished using them as a cold pack. Supplies needed: ??? A cold pack. ??? A towel. This can be dry or damp, depending on your preference and comfort. How to use cold therapy 1. Have your cold pack ready. 2. Place a towel between the cold pack and your skin, or wrap the cold pack in a towel. 3. Apply the cold pack to the affected area. Apply for no more than 20 minutes at a time. 4. Check your skin after 5 minutes to make sure that there is no skin damage or other signs of problems. Check for: ??? White spots on your skin. Your skin may look blotchy or mottled. ??? Skin that looks blue or pale. ??? Skin that feels waxy or hard. 5. Repeat these steps as many times each day as told by your health care provider. Remove the ice if your skin turns bright red. This is very important. If you cannot feel pain, heat, or cold, you have a greater risk of damage to the area. Always use a towel to avoid direct contact with your skin. Contact a health care provider if: ??? You develop white spots on your skin. This may give your skin a blotchy or mottled look. ??? Your skin turns blue or pale. ??? Your skin becomes waxy or hard. ??? Your swelling gets worse. Summary ??? Cold therapy, or cryotherapy, is used to treat an injury or medical condition. It includes using cold packs or ice packs to reduce pain and swelling. ??? Cold therapy is not safe for people who are not able to say they are in pain or have certain conditions. ??? When using cold packs or ice packs, always place a towel between the cold source and your skin. ??? Check your skin after 5 minutes of icing it to make sure that there is no skin damage or other signs of problems. ??? Contact a health care provider if you notice changes in your skin or your swelling gets worse. This information is not intended to replace advice given to you by your health care provider. Make sure you discuss any questions you have with your health care provider. Document Revised: 07/10/2021 Document Reviewed: 07/10/2021 [employer] Patient Education ? 2023 [employer] Acute Pain, Adult Acute pain is a type of sudden pain that may last for just a few days or for as long as three months. It is often related to an illness, injury, or a medical procedure. Acute pain may be mild, moderate, or severe. Pain can make it hard for you to do your daily activities. It can cause anxiety and lead to other problems if it is not treated. Treatment may not take all the pain away, but it may lessen the pain so you can move around and tolerate it. Pain is best treated with medicines and other therapies such as distraction, meditation, oils from plants (aromatherapy), heat, and ice. Treatment depends on the cause of the pain and how severe it is. Acute pain usually goes away once your injury has healed or you are no longer ill. Follow these instructions at home: Medicines ??? Take qtyx-les-lrzjtta and prescription medicines only as told by your health care provider. ??? Take the lowest dose of medicine for the shortest amount of time needed to relieve the pain. ??? If you are taking prescription pain medicine: ? Do not stop taking the medicine suddenly. Talk to your health care provider about how and when tostop taking prescription medicine. ? Do not take more pills than told by your health care provider even if your pain is severe. ? Do not take othe (more content not included)...[facility] 11-18-2024 NoteProgress Note-Physician Patient: WILL RALPH Age: 39 years Sex: Male : 1985 Associated Diagnoses: None Author: Josiane Chin MD Postoperative Information Postoperative disposition: Postoperative disposition: To PACU. Optimetrix number: Optimetrix number [id number]. Anesthetic utilized: General. Health Status Allergies: Allergic Reactions (Selected) Severity Not Documented Amoxicillin- Unknown. Definity- Back pain. Penicillin- Unknown. Physical Examination Vital Signs 11/18/2024 9:24 EDT Heart Rate Monitored 65 bpm Respiratory Rate Monitored 20 br/min Systolic Blood Pressure 128 mmHg Diastolic Blood Pressure 72 mmHg Mean Arterial Pressure, Cuff 91 mmHg SpO2 100 % 11/18/2024 9:13 EDT Heart Rate Monitored 63 bpm Respiratory Rate Monitored 13 br/min Systolic Blood Pressure 113 mmHg Diastolic Blood Pressure 62 mmHg Mean Arterial Pressure, Cuff 79 mmHg SpO2 100 % 11/18/2024 9:07 EDT SpO2 98 % 11/18/2024 9:04 EDT Temperature Temporal Artery 36.5 DegC Heart Rate Monitored 71 bpm Respiratory Rate Monitored 13 br/min Systolic Blood Pressure 107 mmHg Diastolic Blood Pressure 60 mmHg Blood Pressure Location Left arm Mean Arterial Pressure, Cuff 76 mmHg SpO2 98 % Pain Assessment: Controlled. General: Awake, Appropriate. Respiratory: Adequate air exchange. Cardiovascular: Stable. Neurological Assessment Anesthetic outcome No anesthetic complications noted. Adequate pain relief. Review / Management Condition: Stable. Plan Transfer/Discharge: Transfer/Discharge Discharge when meets criteria ( To home ).[facility]Result Comment: Electronically Signed By: Josiane Chin MD\.br\Date and Time Signed: 11/18/24 14:46 EDT 11-18-2024 Evaluation + Plan noteExtracted from: Title:ANES Post-operative Note---General Author: Josiane Chin MD Date:11/18/24 Plan Transfer/Discharge: Transfer/Discharge Discharge when meets criteria ( To home ). Extracted from: Title:1Preop H&P Author:Mario Evans MD Date:11/18/24 Impression and Plan Impression: cirrhosis Plan: -EGD Extracted from: Title:ANES Pre-operative Note 2022 Author:Josiane Dominguez Date:11/18/24 Plan [place] [employer] Anesthesiologists (ASA) physical status classification: Class III. Anesthetic Preoperative Plan: Anesthesia General. Future Appointments Appointment Date:11/21/2024 08:30:00 AM Scheduled Provider:Sadie Loco PA-C Location:[facility] Appointment Type:Pain Management - Follow Up (FT) Appointment Date:11/21/2024 09:15:00 AM Scheduled Provider:Mario Evans MD [facility] Appointment Type:[facility] Follow Up Appointment Date:04/07/2025 08:40:00 AM Scheduled Provider:Vic Carrion Location:[facility] Appointment Type:FM Open Appointment Date:09/28/2025 02:40:00 PM Scheduled Provider:Kavon Lu DO Location:.[facility]COL[facility]Y Appointment Type:ONC Office Visit 20 (FT) Future Scheduled Tests Laboratory* MELLISA and PE, Serum 09/25/25 * Methylmalonic Acid 09/25/25 * O & P Exam, Routine 12/16/23 * PSA Screen, Total 08/19/24 * PT & PTT 12/26/24 * PT & PTT 03/27/25 * PT & PTT 10/21/25 * PT & PTT 09/27/25 * PT & PTT 05/08/25 * Free K+L Lt Chains,Qn,S 09/25/25 * Alpha Fetoprotein Tumor Marker 05/08/25 * Ammonia Level 08/19/24 * CBC w/ Auto Diff 12/26/24 * CBC w/ Auto Diff 03/27/25 * CBC w/ Auto Diff 06/27/25 * CBC w/ Auto Diff 09/27/25 * CBC w/ Auto Diff 05/08/25 * Comprehensive Metabolic Panel 12/26/24 * Comprehensive Metabolic Panel 03/27/25 * Comprehensive Metabolic Panel 06/27/25 * Comprehensive Metabolic Panel 09/27/25 * Comprehensive Metabolic Panel 05/08/25 * Folate Level 09/25/25 * Haptoglobin 12/26/24 * Haptoglobin 03/27/25 * Haptoglobin 06/27/25 * Haptoglobin 09/27/25 * Lipid Panel 08/19/24 * Reticulocyte Count 12/26/24 * Reticulocyte Count 03/27/25 * Reticulocyte Count 06/27/25 * Reticulocyte Count 09/27/25 * Vitamin B12 Level 09/25/25 Radiology* US Liver 05/08/25 [facility] 03-14-2025 Hospital Discharge instructions Patient Education 11/18/2024 09:10:26 Upper Endoscopy, Adult, Care After Upper Endoscopy, Adult, Care After After the procedure, it is common to have a sore throat. It is also common to have: Mild stomach pain or discomfort. Bloating. Nausea. Follow these instructions at home: The instructions below may help you care for yourself at home. Your health care provider may give you more instructions. If you have questions, ask your health care provider. If you were given a sedative during the procedure, it can affect you for several hours. Do not drive or operate machinery until your health care provider says that it is safe. If you will be going home right after the procedure, plan to have a responsible adult: ?Take you home from the hospital or clinic. You will not be allowed to drive. ?Care for you for the time you are told. Follow instructions from your health care provider about what you may eat and drink. Return to your normal activities as told by your health care provider. Ask your health care provider what activities are safe for you. Take omgl-zcf-ybtmyye and prescription medicines only as told by your health care provider. Contact a health care provider if you: Have a sore throat that lasts longer than one day. Have trouble swallowing. Have a fever. Get help right away if you: Vomit blood or your vomit looks like coffee grounds. Have bloody, black, or tarry stools. Have a very bad sore throat or you cannot swallow. Have difficulty breathing or very bad pain in your chest or abdomen. These symptoms may be an emergency. Get help right away. Call 911. Do not wait to see if the symptoms will go away. Do not drive yourself to the hospital. Summary After the procedure, it is common to have a sore throat, mild stomach discomfort, bloating, and nausea. If you were given a sedative during the procedure, it can affect you for several hours. Do not drive until your health care provider says that it is safe. Follow instructions from your health care provider about what you may eat and drink. Return to your normal activities as told by your health care provider. This information is not intended to replace advice given to you by your health care provider. Make sure you discuss any questions you have with your health care provider. Document Revised: 12/03/2022 Document Reviewed: 12/03/2022 [employer] Patient Education 2023 [employer]. [facility] 03-14-2025 NotePatient Education - Text Gastroenterology Upper Endoscopy, Adult, Care After After the procedure, it is common to have a sore throat. It is also common to have: ??? Mild stomach pain or discomfort. ??? Bloating. ??? Nausea. Follow these instructions at home: The instructions below may help you care for yourself at home. Your health care provider may give you more instructions. If you have questions, ask your health care provider. ??? If you were given a sedative during the procedure, it can affect you for several hours. Do not drive or operate machinery until your health care provider says that it is safe. ??? If you will be going home right after the procedure, plan to have a responsible adult: ? Take you home from the hospital or clinic. You will not be allowed to drive. ? Care for you for the time you are told. ??? Follow instructions from your health care provider about what you may eat and drink. ??? Return to your normal activities as told by your health care provider. Ask your health care provider what activities are safe for you. ??? Take wuja-ctt-zmgqfhx and prescription medicines only as told by your health care provider. Contact a health care provider if you: ??? Have a sore throat that lasts longer than one day. ??? Have trouble swallowing. ??? Have a fever. Get help right away if you: ??? Vomit blood or your vomit looks like coffee grounds. ??? Have bloody, black, or tarry stools. ??? Have a very bad sore throat or you cannot swallow. ??? Have difficulty breathing or very bad pain in your chest or abdomen. These symptoms may be an emergency. Get help right away. Call 911. ??? Do not wait to see if the symptoms will go away. ??? Do not drive yourself to the hospital. Summary ??? After the procedure, it is common to have a sore throat, mild stomach discomfort, bloating, andnausea. ??? If you were given a sedative during the procedure, it can affect you for several hours. Do not drive until your health care provider says that it is safe. ??? Follow instructions from your health care provider about what you may eat and drink. ??? Return to your normal activities as told by your health care provider. This information is not intended to replace advice given to you by your health care provider. Make sure you discuss any questions you have with your health care provider. Document Revised: 12/03/2022 Document Reviewed: 12/03/2022 [employer] Patient Education ? 2023 [employer].[facility] 11-18-2024 NoteEndoscopic Procedure Report - Other Patient: WILL RALPH Age: 39 years Sex: Male : 1985 Associated Diagnoses: None Author: Mario Evans MD Pre-Procedure Procedure Date 11/18/2024 09:00:00 . Procedure Type: Esophagogastroduodenoscopy. Procedure provider Performed by Mario Evans MD. Current history and physical Documented on chart. Informed Consent After discussing the rationale, risks and benefits, and alternatives to this procedure, the patient provided signed consent for the procedure. Pre-procedure diagnosis: Cirrhosis, varices screening. ASA Classification: Class III. . Monitoring: See anesthesia record. . Anticoagulation use: Procedure The procedure was performed in the hospital. See anesthesia record for sedation given during procedure. The patient was positioned starting in the left lateral decubitus position and with safety measures. Endoscope type used was an adult- size, introduced orally, advanced to the 3rd portion of the duodenum. No difficulty was encountered during the procedure. Views were excellent. The patient tolerated the procedure well. Extent reached: Duodenum third portion Findings 1. Small esophageal varices noted. 2. Moderate Portal hypertensive gastropathy (PHG) in the fundus of the stomach. 3. Normal duodenum. Images Procedure images: [id number].jpg [id number].jpg [id number]_[id number].jpg [id number]_[id number].jpg [id number].jpg [id number].jpg [id number]_[id number].jpg [id number].jpg . Post-Procedure Complications: none. Estimated blood loss: none. Specimens: none. Devices/ implants: none left in place. Impression and Plan 1. Small esophageal varices noted. 2. Moderate Portal hypertensive gastropathy (PHG) in the fundus of the stomach. 3. Normal duodenum. Recommendations: -Resume previous diet -Resume home medications -Await pathology results, follow in GI clinic in 1-2 after discharge for -[facility]Result Comment: Electronically Signed By: Carrol MULTANI, Mario Xiong\.chidi\Date and Time Signed: 11/18/24 09:01 EDTOther Comment: Missing Attachment - attachment storage system not supported [id number] Can be viewed in source systemMissing Attachment - attachment storage system not supported [id number] Can be viewed insource systemMissing Attachment - attachment storage system not supported [id number] Can be viewed in source systemMissing Attachment - attachment storage system not supported [id number] Can be viewed in source systemMissing Attachment - attachment storage system not supported [id number] Can be viewed in source systemMissing Attachment - attachment storage system not supported [id number] Can be viewed in source systemMissing Attachment - attachment storage system not supported [id number] Can be viewed in source systemMissing Attachment - attachment storage system not supported [id number] Can be viewed in source [phone] NoteProgress Note-Physician Patient: WILL RALPH Age: 39 years Sex: Male : 1985 Associated Diagnoses: None Author: Giuseppe MULTANI, Josiane Mary Preoperative Information Anesthesia Preop Info: Time patient last ate or drank 11/18/2024 00:00:00. Anesthesia history: Patient history: None. Family history+: None. Informed consent: Signed by patient. Re-evaluation prior to induction: Initial evaluation reviewed: No significant change. Review of Systems Eye Ear/Nose/Mouth/Throat Respiratory: No shortness of breath, No cough. Cardiovascular: Negative, No chest pain. Musculoskeletal Neurologic Health Status Allergies: Allergic Reactions (Selected) Severity Not Documented Amoxicillin- Unknown. Definity- Back pain. Penicillin- Unknown., Allergies (3) Active Severity Reaction penicillin unknown amoxicillin Unknown Definity Back Pain Current medications: (Selected) Inpatient Medications Ordered Sodium Chloride 0.9% IV Paulina 1000 mL 1,000 mL: 1,000 mL, IV, 20 mL/hr, Routine, Start date 11/18/24 6:35:00 EDT, 50 hour(s), Total volume (mL): 1,000, 78.9 kg, 1.93, m2 Prescriptions Prescribed BP cuff device and appropriate size please: BP cuff device and appropriate size please, See Instructions, 1 EA, 0, BP Device/ machine and cuff (size appropriate), Supply Coreg 6.25 mg Tab: 6.25 mg = 1 tab(s), Oral, BID, # 180 tab(s), Refills(s) 3, Pharmacy: [facility] #[facility], 170, cm, 10/05/24 9:01:00 EST, Height/Length Dosing, 78.5, kg, 10/05/24 9:11:00 EST, Weight Dosing Narcan 4 mg/0.1 mL nasal spray: 4 mg, Nasal, As Directed, for suspected overdose symptoms, # 1 kit(s), Refills(s) 0, Pharmacy: [facility], 170, cm, 10/05/24 9:01:00 EST, Height/LengthDosing, 78.5, kg, 10/05/24 9:11:00 EST, Weight Dosing Zofran ODT 4 mg Tab: 4 mg = 1 tab(s), Oral, TID, PRN Nausea, # 60 tab(s), Refills(s) 0, Pharmacy: [facility] #[id number], 170, cm, 05/12/24 15:39:00 EDT, Height/Length Dosing, 73, kg, 05/12/24 15:39:00 EDT, Weight Dosing gabapentin 300 mg Cap: See Instructions, take per office provided instructions until you are taking2 tablets three times per day, # 120 tab(s), Refills(s) 0, Pharmacy: [facility] #[id number], 170, cm, 10/26/24 10:30:00 EST, Height/Length Dosing, 78.9, kg, 10/26/24 10:3... gabapentin 600 mg Tab: 1,200 mg = 2 tab(s), Oral, TID, X 30 day(s), # 180 tab(s), Refills(s) 0, Pharmacy: [id number], 170, cm, 10/26/24 10:30:00 EST, Height/Length Dosing, 78.9, kg, 10/26/24 10:30:00 EST, Weight Dosing oxyCODONE 5 mg Tab: 0.5 tab, Oral, q6hr, PRN for pain, for leg pain- severe pain only, # 28 tab(s),Refills(s) 0, Pharmacy: [id number], 170, cm, 10/05/24 9:01:00 EST, Height/Length Dosing, 78.5, kg, 10/05/24 9:11:00 EST, Weight Dosing spironolactone 50 mg Tab: 50 mg = 1 tab(s), Oral, Daily, # 90 tab(s), Refills(s) 3, Pharmacy: [facility] #[id number], 170, cm, 12/23/23 11:10:00 EDT, Height/Length Dosing, 70.3, kg, 12/23/23 11:10:00 EDT, Weight Dosing Documented Medications Documented Misc DME Prescription: See Instructions, Reading SAP Dressing 4 x 4 dressing Misc DME Prescription: See Instructions, LiquidIV hydration Misc DME Prescription: See Instructions, Muscle & joint balm CBD 880mg furosemide 20 mg Tab: = 1 tab(s), Oral, Daily, PRN Edema, Refills(s) 0 magnesium citrate: Oral, Refill(s) 0, Constipation, Home Medications (13) Active BP cuff device and appropriate size please See Instructions Coreg 6.25 mg Tab 6.25 mg = 1 tab(s), Oral, BID furosemide 20 mg Tab 1 tab(s), PRN, Oral, Daily gabapentin 300 mg Cap See Instructions gabapentin 600 mg Tab 1,200 mg = 2 tab(s), Oral, TID magnesium citrate , Oral Misc DME Prescription See Instructions Misc DME Prescription See Instructions Misc DME Prescription See Instructions Narcan 4 mg/0.1 mL nasal spray 4 mg, Nasal, As Directed oxyCODONE 5 mg Tab 0.5 tab, PRN, Oral, q6hr spironolactone 50 mg Tab 50 mg = 1 tab(s), Oral, Daily Zofran ODT 4 mg Tab 4 mg = 1 tab(s), PRN, Oral, TID , Medications (1) Active Scheduled: (0) Continuous: (1) Sodium Chloride 0.9% 1,000 mL 1,000 mL, IV, 20 mL/hr PRN: (0) Problem list: All Problems Abnormal stress test / SNOMED CT 9385525008 / Confirmed Alcohol use disorder in remission / SNOMED CT 65409732 / Confirmed Anemia / SNOMED CT 847802669 / Confirmed BMI 26.0-26.9,adult / SNOMED CT 4587796797 / Confirmed Cellulitis of right leg / SNOMED CT 890315818981599 / Confirmed Cholelithiases / SNOMED CT 232061671 / Confirmed Cirrhosis / SNOMED CT 18493504 / Confirmed Dependent edema / SNOMED CT 372202348 / Confirmed Diarrhea / SNOMED CT 395294652 / Confirmed Elevated fasting glucose / SNOMED CT 356363757 / Confirmed Elevated INR / SNOMED CT 5061020593 / Confirmed Elevated liver enzymes / SNOMED CT 9299160457 / Confirmed Epigastric pain / SNOMED CT 083090871 / Confirmed Esophageal varices / SNOMED CT 51335279 / Confi (more content not included)... [facility] HospitalComment on above:Result Comment: Electronically Signed By: Giuseppe MULTANI, Josiane Mary\.br\Date and Time Signed: 11/18/24 08:52 EDT 11-18-2024 NoteHistory and Physical Patient: WILL RALPH Age: 39 years Sex: Male : 1985 Associated Diagnoses: None Author: Carrol MULTANI, Mario Xiong Preoperative Information Indication for procedure and diagnosis: cirrhosis Chief Complaint as above Review of Systems All systems reviewed, negative except as mentioned above Health Status Current medications: (Selected) Inpatient Medications Ordered Sodium Chloride 0.9% IV Paulina 1000 mL 1,000 mL: 1,000 mL, IV, 20 mL/hr, Routine, Start date 11/18/24 6:35:00 EDT, 50 hour(s), Total volume (mL): 1,000, 78.9 kg, 1.93, m2 Prescriptions Prescribed BP cuff device and appropriate size please: BP cuff device and appropriate size please, See Instructions, 1 EA, 0, BP Device/ machine and cuff (size appropriate), Supply Coreg 6.25 mg Tab: 6.25 mg = 1 tab(s), Oral, BID, # 180 tab(s), Refills(s) 3, Pharmacy: [id number], 170, cm, 10/05/24 9:01:00 EST, Height/Length Dosing, 78.5, kg, 10/05/24 9:11:00 EST, Weight Dosing Narcan 4 mg/0.1 mL nasal spray: 4 mg, Nasal, As Directed, for suspected overdose symptoms, # 1 kit(s), Refills(s) 0, Pharmacy: [facility] #[id number], 170, cm, 10/05/24 9:01:00 EST, Height/LengthDosing, 78.5, kg, 10/05/24 9:11:00 EST, Weight Dosing Zofran ODT 4 mg Tab: 4 mg = 1 tab(s), Oral, TID, PRN Nausea, # 60 tab(s), Refills(s) 0, Pharmacy: [facility] #[id number], 170, cm, 05/12/24 15:39:00 EDT, Height/Length Dosing, 73, kg, 05/12/24 15:39:00 EDT, Weight Dosing gabapentin 300 mg Cap: See Instructions, take per office provided instructions until you are taking2 tablets three times per day, # 120 tab(s), Refills(s) 0, Pharmacy: [facility] #[facility], 170, cm, 10/26/24 10:30:00 EST, Height/Length Dosing, 78.9, kg, 10/26/24 10:3... gabapentin 600 mg Tab: 1,200 mg = 2 tab(s), Oral, TID, X 30 day(s), # 180 tab(s), Refills(s) 0, Pharmacy: [facility] #[facility], 170, cm, 10/26/24 10:30:00 EST, Height/Length Dosing, 78.9, kg, 10/26/24 10:30:00 EST, Weight Dosing oxyCODONE 5 mg Tab: 0.5 tab, Oral, q6hr, PRN for pain, for leg pain- severe pain only, # 28 tab(s),Refills(s) 0, Pharmacy: [facility] #[facility], 170, cm, 10/05/24 9:01:00 EST, Height/Length Dosing, 78.5, kg, 10/05/24 9:11:00 EST, Weight Dosing spironolactone 50 mg Tab: 50 mg = 1 tab(s), Oral, Daily, # 90 tab(s), Refills(s) 3, Pharmacy: [facility] #[id number], 170, cm, 12/23/23 11:10:00 EDT, Height/Length Dosing, 70.3, kg, 12/23/23 11:10:00 EDT, Weight Dosing Documented Medications Documented Misc DME Prescription: See Instructions, Reading SAP Dressing 4 x 4 dressing Misc DME Prescription: See Instructions, LiquidIV hydration Misc DME Prescription: See Instructions, Muscle & joint balm CBD 880mg furosemide 20 mg Tab: = 1 tab(s), Oral, Daily, PRN Edema, Refills(s) 0 magnesium citrate: Oral, Refill(s) 0, Constipation, Home Medications (13) Active BP cuff device and appropriate size please See Instructions Coreg 6.25 mg Tab 6.25 mg = 1 tab(s), Oral, BID furosemide 20 mg Tab 1 tab(s), PRN, Oral, Daily gabapentin 300 mg Cap See Instructions gabapentin 600 mg Tab 1,200 mg = 2 tab(s), Oral, TID magnesium citrate , Oral Misc DME Prescription See Instructions Misc DME Prescription See Instructions Misc DME Prescription See Instructions Narcan 4 mg/0.1 mL nasal spray 4 mg, Nasal, As Directed oxyCODONE 5 mg Tab 0.5 tab, PRN, Oral, q6hr spironolactone 50 mg Tab 50 mg = 1 tab(s), Oral, Daily Zofran ODT 4 mg Tab 4 mg = 1 tab(s), PRN, Oral, TID Problem list: All Problems Thrombocytopenia / SNOMED CT 659972049 / Confirmed Elevated INR / SNOMED CT 7760114624 / Confirmed Smokeless tobacco use / SNOMED CT 6835801769 / Confirmed Hypokalemia / SNOMED CT 42607510 / Confirmed Elevated fasting glucose / SNOMED CT 147517764 / Confirmed Anemia / SNOMED CT 375944386 / Confirmed Alcohol use disorder in remission / SNOMED CT 53665258 / Confirmed Liver cirrhosis, alcoholic / SNOMED CT 6914597720 / Confirmed Venous ulcer of right leg / SNOMED CT 3126157300 / Confirmed Esophageal varices / SNOMED CT 75082141 / Confirmed Dependent edema / SNOMED CT 506040528 / Confirmed Varicose veins of legs / SNOMED CT 652655727 / Confirmed Portal venous hypertension / SNOMED CT 80739477 / Confirmed HTN (hypertension) / SNOMED CT 8092243190 / Confirmed Headache / SNOMED CT 95785392 / Confirmed Nausea / SNOMED CT 2439818351 / Confirmed Cirrhosis / SNOMED CT 61343485 / Confirmed Tobacco user / SNOMED CT 609713212 / Confirmed 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 Severe back pain / SNOMED CT 843178679 / Confirmed Diarrhea / SNOMED CT 002790298 / Confirmed Cholelithiases / SNOMED CT 278754883 / Confirmed Epigastric pain / SNOMED CT 371214575 / Confirmed Vitamin D deficiency / SNOMED CT 31524346 / Confirmed Abnormal stress test / SNOMED CT 8193594960 / Confirmed Iron deficiency anemia / SNOMED CT 011883905 / Confirmed Superfici (more content not included)...[facility] HospitalComment on above:Result Comment: Electronically Signed By: Carrol MULTANI, Mario Xiong\.br\Date and Time Signed: 11/18/24 08:51 [id number] Evaluation + Plan noteExtracted from: Title:chronic pain Author:Evelio Carr DO Date:10/26/24 Patient is presenting with a complex medical history inclusive of cirrhosis, history of venous stasis ulcer of the right lower extremity, history of EtOH abuse- states no use in past 3 years. 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 This pain can be a sharp/stabbing sensation and causes difficulty with ambulation secondary to pain levels. Nothing is particularly helped his pain other than oxycodone per his report, he has tried acetaminophen as well as NSAIDs in the past without relief and was told that he should not take these medications due to his liver function. We did have a lengthy discussion about medications and his overall medical history as well. We did review whether he has tried gabapentin he states that he has tried this very briefly in the past but was not sure if it was effective. This may be an appropriate choice for pain control as this is also not processed in the liver. Given that we have not evaluate this from a neuropathic pain component and his history of alcohol use gives a higher prevalence of the possibility of something such as a peripheral neuropathy we will obtain a bilateral lower extremity EMG to better delineate what may be going on in his right lower extremity. RUSS Score: 30% PHQ-2: 2 Patient denies any symptoms of progressively worsening upper/lower extremity weakness, progressively worsening gait abnormality, new onset bowel/bladder incontinence/ urinary retention, or saddle anesthesia. No new or worsening symptoms of fever, chills, night sweats. 14 Point Review of systems negative unless otherwise noted. General: No acute distress. Patient appears well-nourished. HEENT: Head is normocephalic and external ears are normal in appearance. Cardiovascular: No signs of poor perfusion and no peripheral edema Pulmonary: Nonlabored breathing, symmetric chest movement. GI: Abdomen nondistended Integumentary: No lesions Neurologic: Alert, oriented x3. 5/5 strength grossly in the bilateral upper extremities. 5/5 strength grossly in the bilateral lower extremities. Sensation intact to light touch in the bilateral lower extremities. MSK/Special Testing: Negative Jorden sign bilaterally, negative seated straight leg raise test bilaterally. No noted allodynia or tenderness to palpation of the right lower extremity upon palpation. History, physical examination, and personal review of pertinent imaging results indicate a diagnosis of: -Right leg pain -History of cirrhosis Plan: -We had a lengthy discussion about the possible etiologies of his pain, this is been evaluated from a vascular etiology and he was told that there may be a vascular component to this however they he was not told of a clear pathology or treatment plan for this -We discussed that based on his medical conditions, opioid medication would not be an appropriate choice at this time -We discussed a plan to start gabapentin and titrate to a goal dose of 600 mg 3 times per day. -Will obtain bilateral lower extremity EMGs for comparison to the contralateral side and evaluation of a neuropathic component of this pain -Follow-up after EMGs Patient was counseled on the above diagnosis and treatment, all questions were answered and patient agrees to adhere to the plan above. Risk and benefits of appropriate procedures and medications were reviewed as well with patient, who voiced understanding and agreeance. Patient was counseled on appropriate use of opioids if prescribed or renewed today and naloxone was offered to patient if opioids were prescribed or maintained at this visit. PHQ-2 scoring reviewed with patient and discussed seeking treatment for depression or mood disorder as appropriate. Patient was counseled on smoking cessation and/or continuing to abstain from nicotine/tobacco products as appropriate based on history; as smoking/nicotine can contribute to increased pain overall and decreased wound healing. Patient counseled on maintaining a healthy BMI as part of the total treatment of their pain and to reduce stress/strain on joints. Patient invited to return or call with any questions or concerns that arise. Future Appointments Appointment Date:11/09/2024 12:00:00 PM Scheduled Provider: [facility] Appointment Type:EMG Bilateral Lower Extremity Appointment Date:11/11/2024 08:30:00 AM Scheduled Provider: Location:.[facility] Appointment Type:US Abdominal/Pelvis (FT) Appointment Date:11/18/2024 08:15:00 AM Scheduled Provider: Location:[facility] Appointment Type:Surgery FT Appointment Date:11/21/2024 09:15:00 AM Scheduled Provider:Mario Evans MD Location[place] Appointment Type:BADH Follow Up Appointment Date:04/07/2025 08:40:00 AM Scheduled Provider:Vic Carrion Location:[facility] Appointment Type:FM Open Appointment Date:09/28/2025 02:40:00 PM Scheduled Provider:Kavon Lu DO Location:.ONCOLOGY Appointment Type:ONC Office Visit 20 (FT) Future Scheduled Tests Laboratory* MELLISA and PE, Serum 09/25/25 * Methylmalonic Acid 09/25/25 * O & P Exam, Routine 12/16/23 * PSA Screen, Total 08/19/24 * PT & PTT 12/26/24 * PT & PTT 03/27/25 * PT & PTT 06/27/25 * PT & PTT 09/27/25 * PT & PTT 11/09/24 * Free K+L Lt Chains,Qn,S 09/25/25 * Alpha Fetoprotein Tumor Marker 11/09/24 * Ammonia Level 08/19/24 * CBC w/ Auto Diff 12/26/24 * CBC w/ Auto Diff 03/27/25 * CBC w/ Auto Diff 06/27/25 * CBC w/ Auto Diff 09/27/25 * CBC w/ Auto Diff 11/09/24 * Comprehensive Metabolic Panel 12/26/24 * Comprehensive Metabolic Panel 03/27/25 * Comprehensive Metabolic Panel 06/27/25 * Comprehensive Metabolic Panel 09/27/25 * Comprehensive Metabolic Panel 11/09/24 * Folate Level 09/25/25 * Haptoglobin 12/26/24 * Haptoglobin 03/27/25 * Haptoglobin 06/27/25 * Haptoglobin 09/27/25 * Lipid Panel 08/19/24 * Reticulocyte Count 12/26/24 * Reticulocyte Count 03/27/25 * Reticulocyte Count 06/27/25 * Reticulocyte Count 09/27/25 * Vitamin B12 Level 09/25/25 Radiology* US Liver 11/11/24 [facility] 02-19-2025 NoteConsultation Note Patient is presenting with a complex medical history inclusive of cirrhosis, history of venous stasis ulcer of the right lower extremity, history of EtOH abuse-states no use in past 3 years. 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 This pain can be a sharp/stabbing sensation and causes difficulty with ambulation secondary to pain levels. Nothing is particularly helped his pain other than oxycodone per his report, he has tried acetaminophen as well asNSAIDs in the past without relief and was told that he should not take these medications due to hisliver function. We did have a lengthy discussion about medications and his overall medical history as well. We did review whether he has tried gabapentin he states that he has tried this very brieflyin the past but was not sure if it was effective. This may be an appropriate choice for pain control as this is also not processed in the liver. Given that we have not evaluate this from a neuropathic pain component and his history of alcohol use gives a higher prevalence of the possibility of something such as a peripheral neuropathy we will obtain a bilateral lower extremity EMG to better delineate what may be going on in his right lower extremity. RUSS Score: 30% PHQ-2: 2 Patient denies any symptoms of progressively worsening upper/lower extremity weakness, progressively worsening gait abnormality, new onset bowel/bladder incontinence/ urinary retention, or saddle anesthesia. No new or worsening symptoms of fever, chills, night sweats. 14 Point Review of systems negative unless otherwise noted. General: No acute distress. Patient appears well-nourished. HEENT: Head is normocephalic and external ears are normal in appearance. Cardiovascular: No signs of poor perfusion and no peripheral edema Pulmonary: Nonlabored breathing, symmetric chest movement. GI: Abdomen nondistended Integumentary: No lesions Neurologic: Alert, oriented x3. 5/5 strength grossly in the bilateral upper extremities. 5/5 strength grossly in the bilateral lower extremities. Sensation intact to light touch in the bilateral lower extremities. MSK/Special Testing: Negative Jorden sign bilaterally, negative seated straight leg raise test bilaterally. No noted allodynia or tenderness to palpation of the right lower extremity upon palpation. History, physical examination, and personal review of pertinent imaging results indicate a diagnosis of: -Right leg pain -History of cirrhosis Plan: -We had a lengthy discussion about the possible etiologies of his pain, this is been evaluated froma vascular etiology and he was told that there may be a vascular component to this however they he was not told of a clear pathology or treatment plan for this -We discussed that based on his medical conditions, opioid medication would not be an appropriate choice at this time -We discussed a plan to start gabapentin and titrate to a goal dose of 600 mg 3 times per day. -Will obtain bilateral lower extremity EMGs for comparison to the contralateral side and evaluationof a neuropathic component of this pain -Follow-up after EMGs Patient was counseled on the above diagnosis and treatment, all questions were answered and patientagrees to adhere to the plan above. Risk and benefits of appropriate procedures and medications were reviewed as well with patient, who voiced understanding and agreeance. Patient was counseled on appropriate use of opioids if prescribed or renewed today and naloxone was offered to patient if opioids were prescribed or maintained at this visit. PHQ-2 scoring reviewed with patient and discussed seeking treatment for depression or mood disorder as appropriate. Patient was counseled on smoking cessation and/or continuing to abstain from nicotine/tobacco products as appropriate based on history; as smoking/nicotine can contribute to increased pain overall and decreased wound healing. Patient counseled on maintaining a healthy BMI as part of the total treatment of their pain and to reduce stress/strain on joints. Patient invited to return or call with any questions or concerns that arise.[facility] HospitalComment on above:Result Comment: Electronically Signed By: Evelio Carr DO.br\Date and Time Signed: 10/26/24 11:30 [id number] Hospital Discharge instructions Patient Education 10/05/2024 09:52:58 Heat Therapy, Exci-rh-Mzly Heat Therapy Heat therapy can help ease sore, stiff, injured, and tight muscles and joints. Heat relaxes your muscles. This may help ease your pain and muscle spasms. What are the risks? If you have any of the following conditions, do not use heat therapy unless your doctor says it is okay. These conditions include: New bruises. Open wounds. Any of these in the area being treated: ?Healing wounds. ?Infected skin. ?Scarred skin. Problems with how blood moves through your body (circulation). Loss of feeling (numbness) in the part of your body that is being treated. Unusual swelling of the part of the body that is being treated. Blood clots. Diabetes. Heart disease. Cancer. Not being able to communicate pain. This may include young children and people who have problems with their brain function (dementia). How to use heat therapy There are different kinds of heat therapy. These include: Moist heat pack. Hot water bottle. Electric heating pad. Heated gel pack. Heated wrap. Warm water bath. Your doctor will tell you how to use heat therapy. In general, you should: 1.Place a towel between your skin and the heat source. 2.Leave the heat on for 20 30 minutes. Your skin may turn pink. 3.Take off the heat if your skin turns bright red. This is very important. If you cannot feel pain,heat, or cold, you have a greater risk of getting burned. Your doctor may also tell you to take a warm water bath. To do this: 1.Put a non-slip pad in the bathtub to prevent a fall. 2.Fill the bathtub with warm water. 3.Check the water temperature. 4.Soak in the water for 15 20 minutes, or as told by your doctor. 5.Be careful when you stand up after the bath. You may feel dizzy. 6.Pat yourself dry after the bath. Do not rub your skin to dry it. General recommendations for heat therapy Be careful not to burn your skin when using heat therapy. High heat or using heat for a long time can cause amezquita. Do not sleep while using heat therapy. Only use heat therapy while you are awake. Check your skin during heat therapy. Do not use heat therapy if you have a new injury, especially if you have swelling on the injured area. Do not use heat therapy on areas of your skin that are already irritated, such as with a rash or sunburn. Do not use heat therapy if your skin turns bright red. Contact a doctor if: You have blisters, redness, swelling, or loss of feeling in the area where you use heat therapy. You have new pain. You have pain that gets worse. Summary Heat therapy is the use of heat to help ease sore, stiff, injured, and tight muscles and joints. There are different types of heat therapy. Your doctor will tell you which one to use. Only use heat therapy while you are awake. Watch your skin to make sure you do not get burned while using heat therapy. This information is not intended to replace advice given to you by your health care provider. Make sure you discuss any questions you have with your health care provider. Document Revised: 06/26/2021 Document Reviewed: 06/26/2021 [employer] Patient Education 2023 [employer]. 10/05/2024 09:52:50 How to Take Your Blood Pressure, [id number] How to Take Your Blood Pressure Blood pressure measures how strongly your blood is pressing against the martin of your arteries. Arteries are blood vessels that carry blood from your heart throughout your body. You can take your blood pressure at home with a machine. You may need to check your blood pressure at home: To check if you have high blood pressure (hypertension). To check your blood pressure over time. To make sure your blood pressure medicine is working. Supplies needed: Blood pressure machine, or monitor. A chair to sit in. This should be a chair where you can sit upright with your back supported. Do not sit on a soft couch or an armchair. Table or desk. Small notebook. Pencil or pen. How to prepare Avoid these things for 30 minutes before checking your blood pressure: Having drinks with caffeine in them, such as coffee or tea. Drinking alcohol. Eating. Smoking. Exercising. Do these things five minutes before checking your blood pressure: Go to the bathroom and pee (urinate). Sit in a chair. Be quiet. Do not talk. How to take your blood pressure Follow the instructions that came with your machine. If you have a digital blood pressure monitor, these may be the instructions: 1.Sit up straight. 2.Place your feet on the floor. Do not cross your ankles or legs. 3.Rest your left arm at the level of your heart. You may rest it on a table, desk, or chair. 4.Pull up your shirt sleeve. 5.Wrap the blood pressure cuff around the upper part of your left arm. The cuff should be 1 inch (2.5 cm) above your elbow. It is best to wrap the cuff around bare skin. 6.Fit the cuff snugly around your arm, but not too tightly. You should be able to place only one finger between the cuff and your arm. 7.Place the cord so that it rests in the bend of your elbow. 8.Press the power button. 9.Sit quietly while the cuff fills with air and loses air. 10.Write down the numbers on the screen. 11.Wait 2 3 minutes and then repeat steps 1 10. What do the numbers mean? Two numbers make up your blood pressure. The first number is called systolic pressure. The second is called diastolic pressure. An example of a blood pressure reading is 120 over 80 (or 120/80). If you are an adult and do not have a medical condition, use this guide to find out if your blood pressure is normal: Normal First number: below 120. Second number: below 80. Elevated First number: 120 129. Second number: below 80. Hypertension stage 1 First number: 130 139. Second number: 80 89. Hypertension stage 2 First number: 140 or above. Second number: 90 or above. Your blood pressure is above normal even if only the first or only the second number is above normal. Follow these instructions at home: Medicines Take ifaq-gfn-ghnriag and prescription medicines only as told by your doctor. Tell your doctor if your medicine is causing side effects. General instructions Check your blood pressure as often as your doctor tells you to. Check your blood pressure at the same time every day. Take your monitor to your next doctor's appointment. Your doctor will: ?Make sure you are using it correctly. ?Make sure it is working right. Understand what your blood pressure numbers should be. Keep all follow-up visits. General tips You will need a blood pressure machine or monitor. Your doctor can suggest a monitor. You can buy one at a [employer] or online. When choosing one: Choose one with an arm cuff. Choose one that wraps around your upper arm. Only one finger should fit between your arm and the cuff. Do not choose one that measures your blood pressure from your wrist or finger. Where to find more information [place] [employer] Association: www.heart.org Contact a doctor if: Your blood pressure keeps being high. Your blood pressure is suddenly low. Get help right away if: Your first blood pressure number is higher than 180. Your second blood pressure number is higher than 120. These symptoms may be an emergency. Do not wait to see if the symptoms will go away. Get help rightaway. Call 911. Summary Check your blood pressure at the same time every day. Avoid caffeine, alcohol, smoking, and exercise for 30 minutes before checking your blood pressure. Make sure you understand what your blood pressure numbers should be. This information is not intended to replace advice given to you by your health care provider. Make sure you discuss any questions you have with your health care provider. Document Revised: 05/08/2022 Document Reviewed: 05/08/2022 [employer] Patient Education 2023 [employer]. 10/05/2024 09:52:47 Esophageal Varices Esophageal Varices Esophageal varices are [...] Follow these instructions at home: Medicines Take rzlo-wal-gnmcfff and prescription medicines only as told by [...] provider. Document Revised: 12/11/2020 Document Reviewed: 12/11/2020 [employer] Patient Education 2023 [employer]. 10/05/2024 09:52:46 Cirrhosis Cirrhosis Cirrhosis is long-term (chronic) liver [...] provider before taking any new medicines, including bman-voz-xavbwbz medicines such as NSAIDs. Rest as needed. [...] provider. Document Revised: 06/06/2021 Document Reviewed: 06/06/2021 Elsevier Patient Education 2023 [employer]. Follow Up Care 08/19/2024 16:34:05 With:Rachel ALBERTS, Vic Friedman, [facility], [facility] Address: [address], [address] [facility] [address] [place] [address] [phone] When:Within 6 Month(s) Comments:sooner if needed. keep specialists appointments. [facility] 01-29-2025 NotePatient Education Gastroenterology Esophageal Varices Esophageal varices are enlarged veins [...] causes? This condition may be caused by: ??? Scarring of the liver due to alcoholism. This is the most common cause. ??? Long-term liver disease. ??? Severe heart failure. ??? A blood clot in a vein that supplies the liver. ??? A disease that causes inflammation in the organs and other body areas. What are the signs or symptoms? Esophageal varices usually do not cause symptoms unless they start to bleed. Symptoms of bleeding esophageal varices include: ??? Vomiting material that is bright red or that is black and looks like coffee grounds. ??? Coughing up blood. ??? Stools (feces) that look black and tarry. ??? Dizziness or light-headedness. ??? Low blood pressure. ??? Loss of consciousness. How is this diagnosed? This condition is diagnosed with a procedure called endoscopy. During endoscopy, your health care provider uses a flexible tube with a small camera on the end of it (endoscope) to look down your throat and examine your esophagus. You may also have other tests, including: ??? Imaging tests, such as a CT scan or ultrasound. ??? Blood tests. How is this treated? This condition may be treated with: ??? Medicines. Medicines are usually used to treat varices that are not bleeding. ??? Procedures. Procedures are done to treat varices [...] it to shrink and close (sclerotherapy). You mayalso be given medicines that tighten blood vessels or change blood flow. ? Placing a balloon in the esophagus and inflating it. The balloon applies pressure to the bleedingveins to help stop the bleeding. ? Placing a small tube within the veins in the liver. This decreases blood flow and pressure in theesophageal varices. If other treatments do not work, you may need a liver transplant. Follow these instructions at home: Medicines ??? Take jvvf-bpi-wjakhor and prescription medicines only as told by your health care provider. ??? If you were prescribed an antibiotic medicine, take it as told by your health care provider. Donot stop taking the antibiotic even if you start to feel better. ??? Do not take any NSAIDs (such as aspirin or ibuprofen) before first getting approval from your health care provider. General instructions ??? Do not drink alcohol. ??? Return to your normal activities as told by your health care provider. Ask your health care provider what activities are safe for you. ??? Avoid vigorous physical activity. Ask your health care provider what exercises are safe for you. ??? Keep all follow-up visits. Contact a health care provider if: ??? You have pain in the abdomen. ??? You are unable to eat or drink. Get help right away if: ??? You vomit blood or have blood in your stool. ??? You have stools that look black or tarry. ??? You have chest pain. ??? You feel dizzy or have low blood pressure. ??? You lose consciousness. These symptoms may represent a serious problem that is an emergency. Do not wait to see if the symptoms will go away. Get medical help right away. Call your local emergency services (911 in the [place] Do not drive yourself to the hospital. Summary ??? Esophageal varices are enlarged veins in the esophagus, the part of your body that moves food from your mouth to your stomach. ??? Without treatment, esophageal varices eventually break and bleed, which can be life-threatening. ??? Esophageal varices usually do not cause symptoms unless they start to bleed. ??? Keep all follow-up visits. This is important. This information is not intended to replace advice given to you by your health care provider. Make sure you discuss any questions you have with your health care provider. Document Revised: 12/11/2020 Document Reviewed: 12/11/2020 [employer] Patient Education ? 2023 [employer]. Cirrhosis Cirrhosis is long-term (chronic) liver injury. The liver is the body's largest internal organ, and it performs many functions. It converts food into energy, removes toxic material from the blood, makes important proteins, and absor (more content not included)...[facility]01-25-2025 NoteOncology Progress Note Chief Complaint Anemia; here to go over results. Oncological History/ROS/PE/Assessment and Plan Mr. Ralph is a 38yr old male former smoker with a history of anemia, cirrhosis, alcohol abuse, cholelithiasis, diarrhea, elevated INR, epigastric pain, esophageal varices, HTN, headache, hypokalemia, iron deficiency anemia, nausea, portal venous hypertension, severe back pain, thrombocytopenia, varicose veins, venous ulcer, vitamin D deficiency, cellulitis, and left leg abscess. Surgical historyincludes jaw surgery and I&D lower LE. Medications include cholecalciferol, furosemide, lactulose, multivitamin, naloxone, ondansetron, oxycodone, potassium chloride, spironolactone and Bactrim. He denies personal history of cancer. He is unsure of family cancer history but does not believe anyfamily members had cancer. He is referred by Loreta Cummings NP for iron deficiency anemia and thrombocytopenia. Recent labs show hemoglobin 11.5 with elevated MCV and MCH. Wbc 3.8, platelets 73,000. Elevated LFTs. Iron saturation 99% and ferritin 527. He was a drinker. Intermittent since he was young. then for about two years had nearly a 12 pack per day. He hasnt drank any etoh since 2021. He was on [employer] recently as january 2024. Initial Exam 02/25/24: he took a few [...] for about a week now. Has been busyat work and hasn't been able to refill [...] which do show hemolytic anemia, basil negative. 05/11/24 hb now 12.1 with mcv 106.7, wbc and platelets similar to previous. had intermittent swelling of right leg, then developed an ulcer that wasnt healing well. Had varicose veins addressed. then discussed his late march hospitalization for UTI and infected ulcer in his leg. had vericose veins addressed this year. Has seen Dr. Bertrand locally. He had a procedure done and evaluated bloodflow to R leg. He is not on a liver transplant list. Has not seen a transplant team. Has a f/u with [facility] tomorrow. 09/29/24 doingwell, no new complaints. He contineus to have glow grade hemolysis but his hemoglovin is 13.9 so will [facility] to [facility]. No new medicAL issues recently. continues with signfiicant fatigue can be debilitating. He is working many hours and very active atwork though. 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 General: Alert and oriented, no acute distress. Eye: Extraocular movements are intact, normal conjunctiva. HENT: Normocephalic, normal hearing. Neck: Supple, non-tender, no jugular venous distention. Cardiovascular: Normal rate, regular rhythm, no murmur, no edema. Gastrointestinal: Soft, non-tender, non-distended, normal bowel sounds, no organomegaly. Respiratory: Clear to auscultation bilaterally, no wheezes, rhonchi or rales. Integumentary: Warm, dry, pink, no pallor, no rash. slight bronze color. Psychiatric: Cooperative, appropriate mood & affect. 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 Restrepo [facility], last visit April 2023 Initially treated with 1mg/kg prednisone January 2022 but he did not tolerate this d/t insomnia and agitation, so stopped after 7 days. He was switched to MMF 1000mg BID stopped along with prophylactic Bactrim. He did not feel w (more content not included)...[facility]12-13-2024 Hospital Discharge instructions Patient Education 08/19/2024 17:26:11 Thrombocytopenia Thrombocytopenia Thrombocytopenia is a condition in [...] Follow these instructions at home: Medicines Take lese-ryh-tfxqkiy and prescription medicines only as told by [...] provider. Document Revised: 02/06/2022 Document Reviewed: 02/06/2022 [employer] Patient Education 2023 [employer]. 08/19/2024 17:26:08 Hypertension, Adult Hypertension, Adult High blood pressure [...] follow-up visits. This is important. Medicines Take jhhx-nfm-jogzdtz and prescription medicines only as told by [...] provider. Document Revised: 07/01/2022 Document Reviewed: 07/01/2022 [employer] Patient Education 2023 [employer]. 08/19/2024 17:26:07 Form - Blood Pressure Record Sheet Blood [...] 05/08/2022 Document Reviewed: 05/08/2022 Elsevier Patient Education 2023 [employer] Inc. 08/19/2024 17:26:06 DASH Eating Plan DASH Eating Plan DASH stands for Dietary Approaches to Stop Hypertension. The DASH eating plan is a healthy eating plan that has been shown to: Lower high blood pressure (hypertension). Reduce your risk for type 2 diabetes, heart disease, and stroke. Help with weight loss. What are tips for following this plan? Reading food labels Check food labels for the amount of salt (sodium) per serving. Choose foods with less than 5 percent of the Daily Value (DV) of sodium. In general, foods with less than 300 milligrams (mg) of sodium per serving fit into this eating plan. To find whole grains, look for the word whole as the first word in the ingredient list. Shopping Buy products labeled as low-sodium or no salt added. Buy fresh foods. Avoid canned foods and pre-made or frozen meals. Cooking Try not to add salt when you cook. Use salt-free seasonings or herbs instead of table salt or sea salt. Check with your health care provider or pharmacist before using salt substitutes. Do not perla foods. Cook foods in healthy ways, such as baking, boiling, grilling, roasting, or broiling. Cook using oils that are good for your heart. These include olive, canola, avocado, soybean, and sunflower oil. Meal planning Eat a balanced diet. This should include: ?4 or more servings of fruits and 4 or more servings of vegetables each day. Try to fill half of your plate with fruits and vegetables. ?6 8 servings of whole grains each day. ?6 or less servings of lean meat, poultry, or fish each day. 1 oz is 1 serving. A 3 oz (85 g) serving of meat is about the same size as the palm of your hand. One egg is 1 oz (28 g). ?2 3 servings [...] is high in trans fat, such as fried foods. ?Food that is high in [...] Lifestyle When eating at a restaurant, ask if your food can be made with less salt or no salt. If you drink alcohol: ?Limit how much you have to: ?0 1 drink a day if you are female. ?0 2 drinks a day if you are male. ?Know how much alcohol is in your drink. In the [place] one drink is one 12 oz bottle of beer (355 mL), one 5 oz glass of wine (148 mL), or one 1 oz glass of hard liquor (44 mL). General information Avoid eating more than 2,300 mg of salt a day. If you have hypertension, you may need to reduce your sodium intake to 1,500 mg a day. Work with your provider to stay at a healthy body weight or lose weight. Ask what the best weight range is for you. On most days of the week, get at least 30 minutes of exercise that causes your heart to beat faster. This may include walking, swimming, or biking. Work with your provider or dietitian to adjust your eating plan to meet your specific calorie needs. What foods should I eat? Fruits All fresh, dried, or frozen fruit. Canned fruits that are in their natural juice and do not have sugar added to them. Vegetables Fresh or frozen vegetables that are raw, steamed, roasted, or grilled. Low- sodium or reduced-sodiumtomato and vegetable juice. Low-sodium or reduced-sodium tomato [...] The items listed above may not be all the foods and drinks you can have. Talk to a dietitian to learn more. What foods should I avoid? Fruits Canned fruit in a light or heavy syrup. Fried fruit. Fruit in cream or butter sauce. Vegetables Creamed or fried vegetables. Vegetables in a cheese sauce. Regular canned vegetables that are not marked as low-sodium or reduced-sodium. Regular canned tomato sauce and paste that are not marked as low-sodium or reduced-sodium. Regular tomato and vegetable juices that are not marked as low-sodium or reduced-sodium. Pickles. Olives. Grains Baked goods made with fat, such as croissants, muffins, or some breads. Dry pasta or rice meal packs. Meats and other proteins Fatty cuts of meat. Ribs. Fried meat. Peñaloza. Bologna, salami, and other precooked or cured meats, such as sausages or meat loaves, that are not lean and low in sodium. Fat from the back of a pig (fatback). Bratwurst. Salted nuts and seeds. Canned beans with added salt. Canned or smoked fish. Whole eggs or egg yolks. Chicken or turkey with skin. Dairy Whole or 2% milk, cream, and qsew-usv-bfap. Whole or full-fat cream cheese. Whole-fat or [...] Barbecue sauce. Teriyaki sauce. Soy sauce, including reduced-sodium soy sauce. Steak sauce. Canned and packaged gravies. Fish sauce. Oyster sauce. Cocktail sauce. Store-bought horseradish. Ketchup.Mustard. Meat flavorings and tenderizers. Bouillon cubes. Hot sauces. Pre-made or packaged marinades. Pre-made or packaged taco seasonings. Relishes. Regular salad dressings. Other foods Salted popcorn and pretzels. The items listed above may not be all the foods and drinks you should avoid. Talk to a dietitian natalie haines. Where to find more information National Heart, Lung, and Blood [place] (NHLBI): nhlbi.nih.gov [place] Heart Association (AHA): heart.org Academy of Nutrition and Dietetics: eatright.org National Kidney Foundation (NKF): kidney.org This information is not intended to replace advice given to you by your health care provider. Make sure you discuss any questions you have with your health care provider. Document Revised: 09/10/2023 Document Reviewed: 09/10/2023 [employer] Patient Education 2023 [employer] 08/19/2024 17:26:03 Esophageal Varices Esophageal Varices Esophageal varices are [...] Follow these instructions at home: Medicines Take dssi-hcy-hpuunkz and prescription medicines only as told by [...] provider. Document Revised: 12/11/2020 Document Reviewed: 12/11/2020 [employer] Patient Education 2023 [employer]. 08/19/2024 17:26:03 Cirrhosis Cirrhosis Cirrhosis is long-term (chronic) liver [...] provider before taking any new medicines, including jzsc-yzg-idhcitg medicines such as NSAIDs. Rest as needed. [...] provider. Document Revised: 06/06/2021 Document Reviewed: 06/06/2021 [employer] Patient Education 2023 [employer]. Follow Up Care 04/29/2024 10:12:47 With:Johanny Gutierrez Address: When:Within 3 Day(s) [facility] 12-13-2024 NotePatient Education Cardiovascular Hypertension, Adult High blood pressure (hypertension) is [...] these risk factorsare under your control, including: ??? Smoking. ??? Not getting enough exercise or physical activity. ??? Being overweight. ??? Having too much fat, sugar, calories, or salt (sodium) in your diet. ??? Drinking too much alcohol. Other risk factors include: ??? Having a personal history of heart disease, diabetes, high cholesterol, or kidney disease. ??? Stress. ??? Having a family history of high blood pressure and high cholesterol. ??? Having obstructive sleep apnea. ??? Age. The risk increases with age. What are the signs or symptoms? High blood pressure may not cause symptoms. Very high blood pressure (hypertensive crisis) may cause: ??? Headache. ??? Fast or irregular heartbeats (palpitations). ??? Shortness of breath. ??? Nosebleed. ??? Nausea and vomiting. ??? Vision changes. ??? Severe chest pain, dizziness, and seizures. How [...] risk factors, you may be asked to: ??? Return on a different day to have your blood pressure checked again. ??? Monitor your blood pressure at home for [...] your blood pressure under control and if: ??? Your systolic blood pressure is above 130. ??? Your diastolic blood pressure is above 80. Your personal target blood pressure may vary depending on your medical conditions, your age, and other factors. Follow these instructions at home: Eating and drinking ??? Eat a diet that is high in fiber and potassium, and low in sodium, added sugar, and fat. An example of this eating plan is called the DASH diet. DASH stands for Dietary Approaches to Stop Hypertension. To eat this way: ? Eat plenty of fresh fruits and vegetables. Try to fill one half of your plate at each meal with fruits and vegetables. ? Eat whole grains, such as whole-wheat pasta, brown rice, or whole-grain bread. Fill about one fourth of your plate with whole grains. ? Eat or drink low-fat dairy products, such as skim milk or low-fat yogurt. ? Avoid fatty cuts of meat, processed or cured meats, and poultry with skin. Fill about one fourth of your plate with lean proteins, such as fish, chicken without skin, beans, eggs, or tofu. ? Avoid pre-made and processed foods. These tend to be higher in sodium, added sugar, and fat. ??? Reduce your daily sodium intake. Many people with hypertension should eat less than 1,500 mg ofsodium a day. ??? Do not drink alcohol if: ? Your health care provider tells you not to drink. ? You are , may be , or are planning to become . ??? If you drink alcohol: ? Limit how much you have to: ? 0?1 drink a day for women. ? 0?2 drinks a day for men. ? Know how much alcohol is in your drink. In the [place] one drink equals one 12 oz bottle (more content not included)...[facility]09-05-2024 Evaluation + Plan note* Assessment & Plan Note - Radha Bertrand MD - 05/12/2024 10:03 AM EDTAssociated Problem(s): Lymphedema we have ruled out AV malformation with the angiogram and there is no clear AV fistula, To me this is more available lymphedema I am referring him for complex decongestive therapy [facility]09-05-2024 Miscellaneous Notes* Assessment & Plan Note - Radha Bertrand MD - 05/12/2024 10:03 AM EDTAssociated Problem(s): Lymphedema we have ruled out AV malformation with the angiogram and there is no clear AV fistula, To me this is more available lymphedema I am referring him for complex decongestive therapy [facility] History of Present illness Narrative* Radha Bertrand MD - 05/12/2024 9:30 AM EDT Images from the original note were not included. To: Loreta Cummings APRN-RADIOCOMMUNICATIONS TECHNICIAN HPI: Will Ralph is a 38 y.o. male with liver cirrhosis and multiple medical problems. He used to drink alcohol does not drink anymore. He has right lower extremity swelling. He has long history of varicose veins and treatment. He had ulcers near the heel. He comes in with significant swelling and CT angiogram that shows evidence of shunting and filling of the venous segments of the right lower extremity in the arterial phase. There is no clear arteriovenous fistula. liver cirrhosis and multiple medical problems. He used to drink alcohol does not drink anymore. He has right lower extremity swelling. He has long history of varicose veins and treatment. He had ulcers near the heel. He comes in with significant swelling and CT angiogram that shows evidence of shunting and filling of the venous segments of the right lower extremity in the arterial phase. There is no clear arteriovenous fistula. . Review of Systems: Review of Systems Constitutional: Negative. HENT: Negative. Respiratory: Negative. Cardiovascular: Negative. Gastrointestinal: Negative. Endocrine: Negative. Genitourinary: Negative. Musculoskeletal: Negative. Skin: Negative. Neurological: Negative. Hematological: Negative. Medications: Current Outpatient Medications on File Prior to Visit Medication Sig Dispense Refill cholecalciferol (VITAMIN D3) 50,000 units capsule Take 1 capsule (50,000 Units total) by mouth oncea week. doxycycline (MONODOX) 100 mg capsule TAKE 1 CAPSULE BY MOUTH TWICE DAILY FOR 14 DAYS folic acid (FOLVITE) 1 mg tablet Take 1 tablet (1 mg total) by mouth in the morning. furosemide (LASIX) 20 mg tablet Take 1 tablet (20 mg total) by mouth daily Indications: visible water retention. Evening dose prn for swelling 20 mg lactulose (CHRONULAC) 10 gram/15 mL solution Take 15 mL (10 g total) by mouth 4 (four) times a day as needed. levoFLOXacin (LEVAQUIN) 750 mg tablet Take 1 tablet (750 mg total) by mouth in the morning. naloxone (NARCAN) 4 mg/actuation spray,non-aerosol nasal spray Administer 1 spray (4 mg total) intoeach nostril as needed. ondansetron ODT (ZOFRAN ODT) 4 mg disintegrating tablet Dissolve 1 tablet (4 mg total) on tongue every 8 (eight) hours as needed. oxyCODONE (ROXICODONE) 5 mg immediate release tablet Take 1 tablet (5 mg total) by mouth every 6 (six) hours as needed. pediatric multivitamin-iron tablet,chewable Chew 1 tablet and swallow in the morning. phosphorated carbo,dext-fruct, (NAUSEA RELIEF ORAL) Take by mouth. unknown spironolactone (ALDACTONE) 50 mg tablet Take 1 tablet (50 mg total) by mouth in the morning. Indications: accumulation of fluid caused by cirrhosis of the liver. 50 mg evening dose as needed. ursodioL (ACTIGALL) 300 mg capsule Take 1 capsule (300 mg total) by mouth in the morning and 1 capsule (300 mg total) before bedtime. mycophenolate (CELLCEPT) 500 mg tablet Take 1 tablet (500 mg total) by mouth in the morning and 1 tablet (500 mg total) before bedtime. Patient stopped 12/2023 /patient stated he took it for blood disorder. (Patient not taking: Reported on 05/12/2024) No current facility-administered medications on file prior to visit. 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 Cellulitis Liver disease Right leg swelling 2020 Urinary tract infection Past Surgical History: Past Surgical History: Procedure Laterality Date ANGIOGRAM EXTREMITY LOWER DIAGNOSTIC Right 04/26/2024 Performed by Radha Bertrand MD at [facility] SPECIAL PROC ESOPHAGOGASTRODUODENOSCOPY W/ BANDING 11/2023 [facility] LEG SURGERY Left 2022 calf I/D MANDIBLE FRACTURE SURGERY 2008 Social and Family History: Social History Socioeconomic History Marital status: Single Spouse name: Not on file Number of children: Not on file Years of education: Not on file Highest education level: Not on file Occupational History Not on file Tobacco Use Smoking status: Former Current packs/day: 0.00 Average packs/day: 0.5 packs/day for 4.0 years (2.0 ttl pk-yrs) Types: Cigarettes Start date: 2002 Quit date: 2008 Years since quittin.6 Smokeless tobacco: Current Types: Snuff Tobacco comments: 2 tins per week Vaping Use Vaping status: Never Used Substance and Sexual Activity Alcohol use: Not Currently Comment: quit 2020 Drug use: Never Sexual activity: Defer Other Topics Concern Not on file Social History Narrative Not on file Social Determinants of Health Financial Resource Strain: High Risk (02/27/2023) Received from [employer] Overall Financial Resource Strain (CARDIA) Difficulty of Paying Living Expenses: Very hard Food Insecurity: No Food Insecurity (05/12/2024) Hunger Screening Food Insecurity - Worry: Never True Food Insecurity - Inability: Never True Transportation Needs: No Transportation Needs (02/27/2023) Received from [employer] PRAPARE - Transportation Lack of Transportation (Medical): No Lack of Transportation (Non-Medical): No Physical Activity: Sufficiently Active (02/27/2023) Received from [employer] Exercise Vital Sign Days of Exercise per Week: 7 days Minutes of Exercise per Session: 120 min Stress: Stress Concern Present (02/27/2023) Received from [employer] [place] [employer]ational Health - Occupational Stress Questionnaire Feeling of Stress : Very much Social Connections: Socially Isolated (02/27/2023) Received from [employer] Social Connection and Isolation Panel [NHANES] Frequency of Communication with Friends and Family: More than three times a week Frequency of Social Gatherings with Friends and Family: Patient declined Attends Synagogue Services: Never Active Member of Clubs or Organizations: No Attends Club or Organization Meetings: Never Marital Status: Never Interpersonal Safety: Not At Risk (02/27/2023) Received from [employer] Humiliation, Afraid, Rape, and Kick questionnaire Fear of Current or Ex-Partner: No Emotionally Abused: No Physically Abused: No Sexually Abused: No Housing Instability: High Risk (02/27/2023) Received from [employer] Housing Stability Vital Sign Unable to Pay for Housing in the Last Year: Yes Number of Places Lived in the Last Year: 1 Unstable Housing in the Last Year: No Family History Problem Relation Age of Onset Anesthesia problems Neg Hx Recent Labs: Recent and relative labs were reviewed and interpreted and contributed to the assessment and plan below. Vitals: BP 132/76 (BP Site: Right Arm, BP Postition: Sitting, BP CUFF SIZE: M (9-13 inches)) Pulse 65 Ht 170.2 cm (5' 7 ) Wt 74 kg (163 lb 3.2 oz) SpO2 97% BMI 25.56 kg/m Body mass index is 25.56 kg/m . Physical Exam: Physical Exam Constitutional: Appearance: Normal appearance. HENT: Head: Normocephalic and atraumatic. Mouth/Throat: Mouth: Mucous membranes are moist. Eyes: Extraocular Movements: Extraocular movements intact. Pupils: Pupils are equal, round, and reactive to light. Cardiovascular: Rate and Rhythm: Normal rate and regular rhythm. Pulmonary: Effort: Pulmonary effort is normal. Breath sounds: Normal breath sounds. Abdominal: General: Abdomen is flat. Bowel sounds are normal. Palpations: Abdomen is soft. Musculoskeletal: General: Swelling present. Normal range of motion. Cervical back: Normal range of motion. Skin: General: Skin is warm and dry. Findings: Bruising present. Neurological: General: No focal deficit present. Mental Status: He is alert and oriented to person, place, and time. Mental status is at baseline. Psychiatric: Mood and Affect: Mood normal. Behavior: Behavior normal. Thought Content: Thought content normal. Judgment: Judgment normal. Recent testing: Assessment and Plan: Problem List Lymphedema - Primary Current Assessment & Plan we have ruled out AV malformation with the angiogram and there is no clear AV fistula, To me this is more available lymphedema I am referring him for complex decongestive therapy Will was seen today for angio rle 04/26. Diagnoses and all orders for this visit: Lymphedema Radha Bertrand MD, HÉCTOR, RPVI, FSVS, FACS [facility] This note was created with the assistance of a speech recognition program. While intending to generate a timely document that accurately reflects the content of the visit, no guarantee can be provided that every grammatical or spelling mistake has been or will be identified or corrected. Thank you for your understanding. [facility] NoteOn[facility] Progress Note Chief Complaint Anemia; no questions or conerns. Oncological History/ROS/PE/Assessment and Plan Mr. Ralph is a 38yr old male former smoker with a history of anemia, cirrhosis, alcohol abuse, cholelithiasis, diarrhea, elevated INR, epigastric pain, esophageal varices, HTN, headache, hypokalemia, iron deficiency anemia, nausea, portal venous hypertension, severe back pain, thrombocytopenia, varicose veins, venous ulcer, vitamin D deficiency, cellulitis, and left leg abscess. Surgical historyincludes jaw surgery and I&D lower LE. Medications include cholecalciferol, furosemide, lactulose, multivitamin, naloxone, ondansetron, oxycodone, potassium chloride, spironolactone and Bactrim. He denies personal history of cancer. He is unsure of family cancer history but does not believe anyfamily members had cancer. He is referred by Loreta Cummings NP for iron deficiency anemia and thrombocytopenia. Recent labs show hemoglobin 11.5 with elevated MCV and MCH. Wbc 3.8, platelets 73,000. Elevated LFTs. Iron saturation 99% and ferritin 527. He was a drinker. Intermittent since he was young. then for about two years had nearly a 12 pack per day. He hasnt drank any etoh since 2021. He was on [employer] ads recently as january 2024. Initial Exam 02/25/24: he took a few [...] for about a week now. Has been busyat work and hasn't been able to refill [...] which do show hemolytic anemia, basil negative. 05/11/24 hb now 12.1 with mcv 106.7, wbc and platelets similar to previous. had intermittent swelling of right leg, then developed an ulcer that wasnt healing well. Had varicose veins addressed. then discussed his late march hospitalization for UTI and infected ulcer in his leg. had vericose veins addressed this year. Has seen Dr. Bertrand locally. He had a procedure done and evaluated bloodflow to R leg. He is not on a liver transplant list. Has not seen a transplant team. Has a f/u with carrol tomorrow. PHYSICAL EXAMINATION ECOG PS: General: Alert and oriented, no acute distress. Eye: Extraocular movements are intact, normal conjunctiva. HENT: Normocephalic, normal hearing. Neck: Supple, non-tender, no jugular venous distention. Cardiovascular: Normal rate, regular rhythm, no murmur, no edema. Gastrointestinal: Soft, non-tender, non-distended, normal bowel sounds, no organomegaly. Respiratory: Clear to auscultation bilaterally, no wheezes, rhonchi or rales. Integumentary: Warm, dry, pink, no pallor, no rash. slight bronze color. Psychiatric: Cooperative, appropriate mood & affect. 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 Tanvir Castillo Black, last visit April 2023 Initially treated with 1mg/kg prednisone January 2022 but he did not tolerate this d/t insomnia and agitation, so stopped after 7 days. He was switched to MMF 1000mg BID stopped along with prophylactic Bactrim. He did not feel well on the MMF, so this was dose reduced to 500mg BID then stopped december 2023. He still had generalized toxicity from this and decided to stop taking it, although his counts had improved on therapy. Repeat hemolysis labs March 2024 confirm hemolytic anemia. basil is negative retic count barely elevated in april 2024, i think he has very low grade hemolysis currently. Macrocytosis is (more content not included)...[facility]08-23-2024 Hospital Discharge instructions Patient Education 04/29/2024 10:25:40 Thrombocytopenia Thrombocytopenia Thrombocytopenia is a condition in [...] Follow these instructions at home: Medicines Take cmxm-jyv-wvsugnh and prescription medicines only as told by [...] provider. Document Revised: 02/06/2022 Document Reviewed: 02/06/2022 [employer] Patient Education 2022 [employer]. 04/29/2024 10:25:38 Nausea, Adult Nausea, Adult Nausea is the [...] water added (diluted fruit juice). Eat bland, pvze-zn-kjqewr foods in small amounts as you are able. These foods include bananas, applesauce, rice, lean meats, toast, and crackers. Avoid drinking fluids that contain a lot of sugar or caffeine, such as energy drinks, sports drinks, and soda. Avoid alcohol. Avoid spicy or fatty foods. General instructions Take lfkv-vxg-drmzhgg and prescription medicines only as told by your health care provider. Rest at home while you recover. Drink enough fluid to keep your urine pale yellow. Breathe slowly and deeply when you feel nauseous. Avoid smelling things that have strong odors. Wash your hands often using soap and water for at least 20 seconds. If soap and water are not available, use hand business technology architect. Make sure that everyone in your household [...] recommendations for eating and drinking and take ppjz-xax-jyzujjl and prescription medicinesonly as told by your [...] provider. Document Revised: 02/28/2022 Document Reviewed: 02/28/2022 [employer] Patient Education 2022 [employer]. 04/29/2024 10:25:33 Smokeless Tobacco Information, Teen Smokeless Tobacco Information, Teen Tobacco is a leafy plant that contains a chemical called nicotine. Tobacco use is harmful to your health. Nicotine affects the chemicals in your brain, and this can cause you to crave nicotine. Thesecravings can lead to addiction. Teens who try tobacco even once are at risk for addiction. Smokeless tobacco is tobacco that you put in your mouth instead of smoking it. It may also be called chewingtobacco or snuff. Smokeless tobacco is made from the leaves of tobacco plants and comes in many forms, such as: Loose, dry leaves. Plugs or twists. Moist pouches. Dissolving lozenges or strips. Chewing, sucking, or holding the tobacco in your mouth causes your mouth to make more saliva. The saliva mixes with the tobacco to make tobacco juice that is swallowed or spit out. How can smokeless tobacco use affect me? All forms of tobacco contain many chemicals that can harm every organ in the body. Using smokeless tobacco increases your risk for: Cancer. Tobacco use is one of the leading causes of cancer. Smokeless tobacco is linked to cancer of the mouth, esophagus, and pancreas. Other long-term health problems, including high blood pressure, heart disease, and stroke. Addiction. complications. teens who use smokeless tobacco are more likely to have a miscarriage or deliver a baby too early (premature delivery). Mouth and dental problems, such as: ?Bad breath. ?Teeth that look yellow or brown. ?Mouth sores. ?Cracking and bleeding lips. ?Gum recession, gum disease, or tooth decay. ?Lesions on the soft tissues of your mouth (leukoplakia). The benefits of not using smokeless tobacco include: A healthy mind and body. Saving money. You avoid the cost of buying tobacco and the cost of treating illnesses that are caused by tobacco. What actions can I take to quit using tobacco? Ask your health care provider for help to quit using smokeless tobacco. This may involve treatment. These tips may also help you quit: Pick a date to quit. Set a date within the next 2 weeks. This gives you time to prepare. Write down the reasons why you are quitting. Keep this list in places where you will see it often, such as on your bathroom mirror or in your car or wallet. Identify the people, places, things, and activities that make you want to use smokeless tobacco (triggers). Avoid them. Tell your family and friends that you are quitting. Look for a teen support group in your area. Having support can make quitting easier. Get rid of any tobacco you have and remove any tobacco smells. To do this: ?Throw away all containers of tobacco at home, school, work, or in your car. ?Throw away any other items that you use regularly when you chew tobacco. ?Clean your home or area where you chewed tobacco. Keep track of how many days have passed since you quit. It may help to cross days off a calendar. Remembering how long and hard you have worked to quit can help you avoid using smokeless tobacco again. Stay positive. Be prepared for cravings. It is common to slip up when you first quit, so take it one day at a time. Stay busy and take care of your body. Get plenty of exercise. Drink enough water to keep your urinepale yellow. Where to find support Ask your health care provider if there is a local support group for quitting smokeless tobacco, such as: Teen Smoke Free: www.teen.smokefree.gov Apps for mobile phones, including the free quitSTART lauren. Hotlines, such as 6-601-GYQF-NOW ( ). Where to find more information You can learn more about the risks of using smokeless tobacco and the benefits of quitting from these sources: Centers for Disease Control and Prevention: cdc.gov [place] on Drug Abuse: avery.nih.gov [place] [employer]s: healthychildren.org [place] Cancer Society: cancer.org Contact a health care provider if: You are having trouble quitting smokeless tobacco use on your own. Summary Smokeless tobacco contains many different chemicals that are known to cause cancer. Nicotine is an addictive chemical in smokeless tobacco. Teens who try smokeless tobacco even once are at risk for addiction. Not using smokeless tobacco will help you live a longer and healthier life. Start a plan to quit bysetting a date, writing down all the reasons you want to quit, and letting your friends and family know so they can help and support you. Talk to your health care provider if you are having trouble quitting smokeless tobacco use on your own. This information is not intended to replace advice given to you by your health care provider. Make sure you discuss any questions you have with your health care provider. Document Revised: 05/21/2022 Document Reviewed: 05/21/2022 [employer] Patient Education 2022 [employer]. 04/29/2024 10:25:29 Peripheral Edema Peripheral Edema Peripheral edema is [...] a temporary dent in your skin (pitting edema).You may not be able to move your swollen arm or leg as much as usual. There are many causes of peripheral edema. It can happen because of a complication of other conditions such as heart failure, kidney disease, or a problem with your circulation. It also can be a sideeffect of certain medicines or happen because of [...] to move the fluid back into your bloodvessels, and it may help the swelling go [...] by your health care provider. Medicines Take qfqw-ino-jwizyvl and prescription medicines only as told by [...] provider. Document Revised: 04/28/2022 Document Reviewed: 04/28/2022 [employer] Patient Education 2022 [employer]. 04/29/2024 10:25:24 Anemia Anemia Anemia is a condition in which there are not enough red blood cells or hemoglobin in the blood. Hemoglobin is a substance in red blood cells that carries oxygen. When you do not have enough red blood cells or hemoglobin (are anemic), your body cannot get enoughoxygen, and your organs may not work properly. [...] blood disorders. Cancer and treatments for cancer. Human immunodeficiency virus (HIV) and acquired immunodeficiency syndrome (AIDS). Infections, medicines, and autoimmune disorders that destroy red blood cells. What are the signs or symptoms? Symptoms of this condition include: Minor weakness. Dizziness. Headache, or difficulties concentrating and sleeping. Heartbeats that feel irregular or faster than normal (palpitations). Shortness of breath, especially with exercise. Pale skin, lips, and nails, or cold hands and feet. Upset stomach (indigestion) and nausea. Symptoms may occur suddenly or [...] stool (feces) for blood and may do more testing to look for the cause of your bleeding. Other tests may include: Imaging tests, such as a CT scan or MRI. A procedure to see inside your esophagus and stomach (endoscopy). The esophagus is the part of the body that moves food from your mouth to your stomach. A procedure to see inside your colon [...] help to stimulate red blood cell growth. Receiving donated blood through an IV (blood transfusion). This may be needed if you lose a lot of blood. Making changes to your diet. Having surgery to remove your spleen. Follow these instructions at home: Take zmjv-kzb-eegkwfj and prescription medicines only as told by your health care provider. Take supplements only as told by your health care provider. Follow any diet instructions that you were given by your health care provider. Keep all follow-up visits. Your health care provider will want to recheck your blood tests. Contact a health care provider if: You develop new bleeding anywhere in the body. You are very weak. Get help right away if: You are short of breath. You have pain in your abdomen or chest. You are dizzy or feel faint. You have trouble concentrating. You have bloody stools, black stools, or tarry stools. You vomit repeatedly or you vomit up blood. These symptoms may be an emergency. Get help right away. Call 911. Do not wait to see if the symptoms will go away. Do not drive yourself to the hospital. Summary Anemia is a condition in which you do not have enough red blood cells or enough of a substance in your red blood cells that carries oxygen. Symptoms may occur suddenly or develop slowly. [...] with your health care provider. Document Revised: 11/17/2022 Document Reviewed: 11/17/2022 [employer] Patient Education 2022 [employer]. 04/29/2024 10:25:22 DASH Eating Plan DASH Eating Plan DASH [...] Dairy Whole or 2% milk, cream, and njeg-nwm-eiee. Whole or full-fat cream cheese. Whole-fat or [...] more information National Heart, Lung, and Blood [place]: www.nhlbi.nih.gov [place] Heart Association: www.heart.org Academy of Nutrition and [...] provider. Document Revised: 07/27/2020 Document Reviewed: 07/27/2020 [employer] Patient Education 2022 [employer]. 04/29/2024 10:25:19 Esophageal Varices Esophageal Varices Esophageal varices are [...] Follow these instructions at home: Medicines Take hrow-fxj-wucvzdn and prescription medicines only as told by [...] provider. Document Revised: 12/11/2020 Document Reviewed: 12/11/2020 [employer] Patient Education 2022 [employer]. 04/29/2024 10:25:18 Cirrhosis Cirrhosis Cirrhosis is long-term (chronic) liver [...] provider before taking any new medicines, including xtap-mzy-zzvgaiy medicines such as NSAIDs. Rest as needed. [...] provider. Document Revised: 06/06/2021 Document Reviewed: 06/06/2021 [employer] Patient Education 2022 [employer]. 04/29/2024 10:25:16 Thrombophlebitis Thrombophlebitis Thrombophlebitis is a condition in which a blood clot and inflammation occur inside a vein. This can happen in the arms, legs, or torso. Thrombophlebitis may involve superficial veins, deep veins, orboth. Superficial veins are close to the surface of the body and are part of the superficial venoussystem. Veins that are deeper inside the body are part of the deep venous system. When this condition happens in a superficial vein (superficial thrombophlebitis), it is usually notserious.However, when the condition happens in a vein that is part of the deep venous system (deep vein thrombosis, DVT), it can cause serious problems. What are the causes? This condition may be caused by: Infection, injury, or trauma to a vein. Inflammation of the veins. Medical conditions that can cause blood to clot more easily (hypercoagulable state). Backing up, or reflux, of blood flow through the veins (chronic venous insufficiency or venous stasis). What increases the risk? The following factors may make you more likely to develop this condition: Having a long, thin tube (catheter) put in a vein, such as a central line, port, or IV catheter. Getting certain medicines through a catheter that can irritate the vein. or having recently given . Cancer. Obesity. Taking oral contraceptive pills (OCPs) or hormone therapy (HT) medicines. Spasms of veins. Immobilization, or not moving the limbs for prolonged periods. What are the signs or symptoms? The main symptoms of this condition are: Swelling and pain in an arm or leg. If the affected vein is in the leg, you may feel pain while standing or walking. Warmth or redness in an arm or leg. Tenderness in the affected area when it is touched. Other symptoms include: Low-grade fever. Muscle aches. A bulging or hard vein (venous distension). In some cases, there are no symptoms. How is this diagnosed? This condition may be diagnosed based on: Your symptoms and medical history. A physical exam. Tests, such as a test that uses sound waves to make images (duplex ultrasound). How is this treated? Treatment depends on how severe the condition is and which area of the body is affected. Treatment may include: Applying a warm compress or heating pad to affected areas. This may need to be repeated several times a day. Moving the affected limb. For example, you may need to start doing walking exercises right away. You will also be encouraged to continue your usual daily activities. Raising (elevating) the affected arm or leg above the level of your heart. Medicines, such as: ?Anti-inflammatory medicines, such as ibuprofen. ?Blood thinners (anticoagulants) or anti-platelet drugs such as aspirin. Removing an IV or central line that may be causing the problem. Wearing compression stockings to help prevent blood clots and reduce swelling in your legs. Follow these instructions at home: Medicines Take jujf-vll-tlkbmma and prescription medicines only as told by [...] bruising, and follow instructions about how to preventfalls. ?Wear a medical alert bracelet or carry a card that lists what medicines you take. Managing pain, stiffness, and swelling If directed, apply heat to the affected [...] to feel pain, heat, or cold. You have a greater risk of getting burned. Elevate the affected area above the level of your heart while you are sitting or lying down. Activity Return to your normal activities as told by your health care provider. Ask your health care provider what activities are safe for you. Avoid sitting for a long time without moving. Get up to take short walks every 1 2 hours. This is important to improve blood flow and breathing. Ask for help if you feel weak or unsteady. Do exercises as told by your health care provider. Rest as told by your health care provider. General instructions Drink enough fluid to keep your urine pale yellow. Wear compression stockings as told by your health care provider. Do not use any products that contain nicotine or tobacco. These products include cigarettes, chewing tobacco, and vaping devices, such as e-cigarettes. If you need help quitting, ask your health careprovider. Keep all follow-up visits. This is important. Contact a health care provider if: You miss a dose of your blood thinner, if applicable. Your symptoms do not improve. You have unusual bruising. You have nausea, vomiting, or diarrhea that lasts for more than a day. Get help right away if: You are breathing fast or have chest pain. You have blood in your vomit, urine, or stool. You have severe pain in your affected arm or leg or new pain in any arm or leg. You have light-headedness, dizziness, a severe headache, or confusion. These symptoms may represent a serious problem that is an emergency. Do not wait to see if the symptoms will go away. Get medical help right away. Call your local emergency services (911 in the [place] Do not drive yourself to the hospital. Summary Thrombophlebitis is a condition in which a blood clot forms in a vein, causing inflammation and often pain. This can happen in both superficial and deep veins. The main symptom of this condition is swelling and pain around the affected vein. Tenderness and redness may also be present. Treatment may include warm compresses, compression stockings, anti-inflammatory medicines, or bloodthinners. Make sure you take all medicines, especially blood thinners, as instructed and keep all follow-up visits to ensure proper healing of the vein. This information is not intended to replace advice given to you by your health care provider. Make sure you discuss any questions you have with your health care provider. Document Revised: 02/17/2022 Document Reviewed: 02/17/2022 [employer] Patient Education 2022 [employer]. Follow Up Care 01/27/2024 11:04:00 With:Loreta Padilla FAM, MED Address: [address] [place] [address], [facility] [place] [id number]- When:Within 3 Month(s) Comments:f/u labs, HTN, cirrhosis, vascular disease [facility] 08-23-2024 NotePatient Education Cardiovascular Thrombophlebitis Thrombophlebitis is a condition in which a blood clot and inflammation occur inside a vein. This can happen in the arms, legs, or torso. Thrombophlebitis may involve superficial veins, deep veins, orboth. Superficial veins are close to the surface of the body and are part of the superficial venoussystem. Veins that are deeper inside the body are part of the deep venous system. When this condition happens in a superficial vein (superficial thrombophlebitis), it is usually notserious.However, when the condition happens in a vein that is part of the deep venous system (deep vein thrombosis, DVT), it can cause serious problems. What are the causes? This condition may be caused by: ? Infection, injury, or trauma to a vein. ? Inflammation of the veins. ? Medical conditions that can cause blood to clot more easily (hypercoagulable state). ? Backing up, or reflux, of blood flow through the veins (chronic venous insufficiency or venous stasis). What increases the risk? The following factors may make you more likely to develop this condition: ? Having a long, thin tube (catheter) put in a vein, such as a central line, port, or IV catheter. ? Getting certain medicines through a catheter that can irritate the vein. ? or having recently given . ? Cancer. ? Obesity. ? Taking oral contraceptive pills (OCPs) or hormone therapy (HT) medicines. ? Spasms of veins. ? Immobilization, or not moving the limbs for prolonged periods. What are the signs or symptoms? The main symptoms of this condition are: ? Swelling and pain in an arm or leg. If the affected vein is in the leg, you may feel pain while standing or walking. ? Warmth or redness in an arm or leg. ? Tenderness in the affected area when it is touched. Other symptoms include: ? Low-grade fever. ? Muscle aches. ? A bulging or hard vein (venous distension). In some cases, there are no symptoms. How is this diagnosed? This condition may be diagnosed based on: ? Your symptoms and medical history. ? A physical exam. ? Tests, such as a test that uses sound waves to make images (duplex ultrasound). How is this treated? Treatment depends on how severe the condition is and which area of the body is affected. Treatment may include: ? Applying a warm compress or heating pad to affected areas. This may need to be repeated several times a day. ? Moving the affected limb. For example, you may need to start doing walking exercises right away. You will also be encouraged to continue your usual daily activities. ? Raising (elevating) the affected arm or leg above the level of your heart. ? Medicines, such as: ? Anti-inflammatory medicines, such as ibuprofen. ? Blood thinners (anticoagulants) or anti-platelet drugs such as aspirin. ? Removing an IV or central line that may be causing the problem. ? Wearing compression stockings to help prevent blood clots and reduce swelling in your legs. Follow these instructions at home: Medicines ? Take trym-jow-eonraqn and prescription medicines only as told by your health care provider. ? If you are taking blood thinners: ? Talk with your health care provider before you take any medicines that contain aspirin or NSAIDs,such as ibuprofen. These medicines increase your risk for dangerous bleeding. ? Take your medicine exactly as told, at the same time every day. ? Avoid activities that could cause injury or bruising, and follow instructions about how to prevent falls. ? Wear a medical alert bracelet or carry a card that lists what medicines you take. Managing pain, stiffness, and swelling ? If directed, apply heat to the affected area as often as told by your health care provider. Use the heat source that your health care provider recommends, such as a moist heat pack or a heating pad. ? Place a towel between your skin and the heat source. ? Leave the heat on for 20?30 minutes. ? Remove the heat if your skin turns bright red. This is especially important if you are unable to feel pain, heat, or cold. You have a greater risk of getting burned. ? Elevate the affected area above the level of your heart while you are sitting or lying down. Activity ? Return to your normal activities as told by your health care provider. Ask your health care provider what activities are safe for you. ? Avoid sitting for a long time without moving. Get up to take short walks every 1?2 hours. This isimportant to improve blood flow and breathing. Ask for help if you feel weak or unsteady. ? Do exercises as told by your health care provider. ? Rest as told by your health care provider. General instructions ? Drink enough fluid to keep your urine pale yellow. ? Wear compression stockings as told by your health care provider. ? Do not use any products that contain nicotine or tobacco. These products incl (more content not included)...[facility]08-15-2024 Instructions * Pre-Procedure Instructions - Marlin Tierney RN - 04/21/2024 2:45 PM EDT Your surgery/procedure is scheduled at [facility] on 04/26/2024 at 10:45 Arrival Time 8:45 [facility] Address: [address] [place] [address] Park in [address] Parking lot located on [facility]. Report to the Entrance B. Check in at the information desk the surgery. The waiting room located on the second floor. If you have any questions prior to surgery, please call Pre-Admission Clinic at [phone] between 7:30 am and 4:30 pm Thursday through Thursday. If you have questions the morning of surgery, please call the Pre-op Department at [phone]. Notify your SURGEON if you develop any illness such as a cold, cough, fever, sore throat, vomiting or are hospitalized between now and your surgery. CONTINUE TO TAKE YOUR MEDICATIONS PRESCRIBED. DO NOT STOP YOUR PRESCRIBED MEDICATIONS UNLESS DIRECTED BY YOUR PRESCRIBING PHYSICIAN Take the following medications the morning of surgery with a sip of water: as per office instructions Diabetic or weight loss medications: STOP none Take inhalers as prescribed the morning of surgery. . Blood thinners: Medications such as Coumadin, Heparin, Aspirin, Plavix, Eliquis, Pradaxa) Please contact your physician regarding a stop/hold date for these medications. Diabetics: If you take insulin, contact your prescribing doctor for instructions on how to manage this the night before and the morning of surgery. Non-steriodal Anti-Inflammatory Drugs (NSAIDS)- Stop 3 days prior to surgery unless otherwise directed by your surgeon. Vitamins/Herbal Products: You may continue to take your prescribed vitamins such as potassium, iron, vitamin B, vitamin C, or multivitamin unless specifically instructed by your surgeon to stop. STOPtaking all herbal products/teas one week prior to your surgery. Marijuana: Stop marijuana 72 hours prior to surgery, stop CBD oil 48 hours prior to surgery. If you have been given bowel prep instructions by your surgeon, please call the surgeon's office with any questions about these instructions. What do I do the day of Surgery? Age 2 through adult - Stop all solids by midnight, You may have clear liquids up to 2 hours before surgery, unless otherwise instructed by your surgeon. Clear liquids are: water, sports drinks such as Gatorade or G2, or apple juice. You may NOT have: tube feedings, dairy products, alcoholic beverages, orange juice, or any liquids with solids or pulp in it. If applicable, shower again with CHG soap the morning of your surgery. If you received a green plastic bracelet, bring it with you the day of surgery and your nurse will put it on you. In order to help prevent infection post-operatively, you may be asked to use a CHG mouthwash when you arrive to the Pre-op area. Your nurse will provide instruction the morning of. What do I need to do to prepare for surgery? If you will be going home the same day as your surgery, arrange for an adult over [address] Riding in a bus or taxi by yourself is not permitted. You should not smoke or drink alcohol 24 hours before your surgery. Alcohol thins the blood and may cause bleeding problems during surgery. Smoking increases the risk of breathing problems after surgery. Do not use lotions, creams, powders, perfume, make up, cologne or after-shaves day of surgery. Remove ALL jewelry including wedding rings, body piercings (including dermal piercings ,hair extensions that contain metal, nail prydeinig, make-up, and contact lens. You may brush your teeth the morning of surgery, but do not swallow the water. Wear your dentures and partial plates to the hospital (no adhesive). Shower the night the before. If applicable, use the CHG (chlorhexidine gluconate) soap or wipes What should I bring to the hospital? If you received a green plastic bracelet, bring it with you the day of surgery and your nurse will put it on you. Eyeglass or contact lens case If you will be spending the night, please bring personal care items and leave them in the car untilyou are taken to your room after surgery. Leave ALL valuables at home. If any of these instructions conflict with those you received from the surgeon, please seek clarification from your surgeon's office. DEEP BREATHING EXERCISES This exercise helps promote good air exchange and helps to prevent pneumonia after surgery. Breathe in slowly and deeply through the nose. Hold your breath for a few seconds and then exhale slowly through the mouth. Repeat this three times and then cough.Coughing helps to clear your lungs. If you have had a surgery with an incision into your abdomen or chest, press gently against your incision with a pillow or a folded blanket when you cough. Please be aware - it may not be barone to cough following some types of surgeries involving the eyes,ears, sinuses and throat. Always follow your doctor's instructions. LEG EXERCISE These exercises help promote good circulation and help to prevent blood clots after surgery. Point your toes to the ceiling and then point them to the wall. Do this slowly about 15-20 times. You may also move your feet in circles. Do the exercise that is most comfortable for you. If you have had surgery involving your shoulder or arm, we recommend you move your fingers. PRACTICING We ask that you begin practicing these exercises before your surgery. After surgery try to do both exercises at least every 2 hours during the day and early evening. SURGICAL SITE INFECTION PREVENTION What is a Surgical Site Infection? Infection can happen to the area of the body where surgery is done. This is called a surgical site infection (SSI). A SSI does not happen very often. Can SSIs be treated? Antibiotics are used to treat SSI. Some patients may need another surgery to treat the infection. The doctor will discuss treatment options with you. What are some of the things that hospitals are doing to prevent SSIs? Soap and water or alcohol hand rub are used before and after caring for each patient. Special soap is used to clean surgery workers hands and arms just before the surgery. Masks, gowns, gloves and hair covers are worn during the surgery to keep the area clean. Hair in the surgery area may be removed with clippers (not razors). A special soap that kills germs is used to clean the skin at the surgery site. Antibiotics may be given before the surgery starts. What can you do to prevent SSIs? Before surgery: You may be asked to shower or bathe with a special soap that kills germs the night before and the day of surgery. Use the soap as you were told. If you smoke, stop or cut down. Ask your doctor about ways to quit. Do not shave near where you will have surgery. Shaving can irritate the skin and make it easier to get and infection. After surgery: Be sure that the doctors and nurses clean their hands before and after touching you. Be sure your family and friends clean their hands before and after visiting you. Do not be afraid to remind them. * Care for your wound at home as told by your doctor or nurse * Call your doctor right away if you have fever, redness, increased pain, or drainage at the surgery site. Further questions? Contact the doctor, nurse or the Infection Prevention and Control department if you have any questions. PATIENT RIGHTS AND RESPONSIBILITIES As a patient at [facility], you have the right to: Receive medical care and be informed of who is taking care of you Be treated with dignity and respect Have a family member/sales representative raw fibers of choice and your physician notified of your admission Receive information and actively participate in decisions about your care and treatment Refuse care, treatment and services Decide who may provide your support and speak for you Access scientologist and spiritual services Participate in ethical issues and questions about your care Receive private and confidential care Have appropriate assessment and management of your pain Know guest visitation restrictions or limitations Have an advance directive Access protective services Consent or refuse to participate in research studies or production or recordings, films or other images Have resolution of your complaints Receive information of hospital charges and payment methods Patient/patient sales representative raw fibers responsibilities are to: Provide information about health status to facilitate care, treatment and services Follow the treatment, plan, keep appointments and speak up when you do not understand the plan Respect the rights of other patients and healthcare personnel Follow organizational rules and regulations that support quality care and a safe environment Fulfill financial obligations as promptly as possible Bathing Before Surgery- Patients greater than 2 months of age You can help to lower your chance of infection at the site of your surgery by showering or bathing with a special soap called chlorhexidine gluconate (CHG). Germs live on your skin. This special soapwill help lower the amount of germs so they do not get into your surgery site. Special points to know: Do not use this soap if you know that you are allergic to CHG. Shower or bathe with CHG the night before and the morning of surgery. Do not shave the area of your body where the surgery will be done within 7 days of surgery. The CHG may make your skin a little dry, but do not use lotion. Steps for Bathing: Wash your hair as usual with your normal shampoo. Rinse your hair and body well after you shampoo to get rid all of the shampoo. Wash gently with the CHG from the neck down, but do not scrub the skin to hard. Be sure to wash thearea of your surgery very well. If showering, turn the water off while washing and then turn the water back onto rinse. Do not get CHG in the genital (private) area. Do not get CHG in the eyes, ears, nose or mouth. (If the soap gets into the eyes, flush them immediately with water). Do not wash with regular soap after CHG is used. Pat skin dry with a soft, clean towel. Patient should sleep in freshly laundered night clothes and report for surgery in clean clothes. [facility]08-15-2024 Miscellaneous Notes* Pre-Procedure Instructions - Marlin Tierney RN - 04/21/2024 2:45 PM EDT Your surgery/procedure is scheduled at [facility] on 04/26/2024 at 10:45 Arrival Time 8:45 [facility] Address: [address] [place] [address] Park in [address]1 Parking lot located on [facility]. Report to the Entrance B. Check in at the information desk the surgery. The waiting room located on the second floor. If you have any questions prior to surgery, please call Pre-Admission Clinic at [phone] between 7:30 am and 4:30 pm Thursday through Thursday. If you have questions the morning of surgery, please call the Pre-op Department at [phone]. Notify your SURGEON if you develop any illness such as a cold, cough, fever, sore throat, vomiting or are hospitalized between now and your surgery. CONTINUE TO TAKE YOUR MEDICATIONS PRESCRIBED. DO NOT STOP YOUR PRESCRIBED MEDICATIONS UNLESS DIRECTED BY YOUR PRESCRIBING PHYSICIAN Take the following medications the morning of surgery with a sip of water: as per office instructions Diabetic or weight loss medications: STOP none Take inhalers as prescribed the morning of surgery. . Blood thinners: Medications such as Coumadin, Heparin, Aspirin, Plavix, Eliquis, Pradaxa) Please contact your physician regarding a stop/hold date for these medications. Diabetics: If you take insulin, contact your prescribing doctor for instructions on how to manage this the night before and the morning of surgery. Non-steriodal Anti-Inflammatory Drugs (NSAIDS)- Stop 3 days prior to surgery unless otherwise directed by your surgeon. Vitamins/Herbal Products: You may continue to take your prescribed vitamins such as potassium, iron, vitamin B, vitamin C, or multivitamin unless specifically instructed by your surgeon to stop. STOPtaking all herbal products/teas one week prior to your surgery. Marijuana: Stop marijuana 72 hours prior to surgery, stop CBD oil 48 hours prior to surgery. If you have been given bowel prep instructions by your surgeon, please call the surgeon's office with any questions about these instructions. What do I do the day of Surgery? Age 2 through adult - Stop all solids by midnight, You may have clear liquids up to 2 hours before surgery, unless otherwise instructed by your surgeon. Clear liquids are: water, sports drinks such as Gatorade or G2, or apple juice. You may NOT have: tube feedings, dairy products, alcoholic beverages, orange juice, or any liquids with solids or pulp in it. If applicable, shower again with CHG soap the morning of your surgery. If you received a green plastic bracelet, bring it with you the day of surgery and your nurse will put it on you. In order to help prevent infection post-operatively, you may be asked to use a CHG mouthwash when you arrive to the Pre-op area. Your nurse will provide instruction the morning of. What do I need to do to prepare for surgery? If you will be going home the same day as your surgery, arrange for an adult over [address] Riding in a bus or taxi by yourself is not permitted. You should not smoke or drink alcohol 24 hours before your surgery. Alcohol thins the blood and may cause bleeding problems during surgery. Smoking increases the risk of breathing problems after surgery. Do not use lotions, creams, powders, perfume, make up, cologne or after-shaves day of surgery. Remove ALL jewelry including wedding rings, body piercings (including dermal piercings ,hair extensions that contain metal, nail prydeinig, make-up, and contact lens. You may brush your teeth the morning of surgery, but do not swallow the water. Wear your dentures and partial plates to the hospital (no adhesive). Shower the night the before. If applicable, use the CHG (chlorhexidine gluconate) soap or wipes What should I bring to the hospital? If you received a green plastic bracelet, bring it with you the day of surgery and your nurse will put it on you. Eyeglass or contact lens case If you will be spending the night, please bring personal care items and leave them in the car untilyou are taken to your room after surgery. Leave ALL valuables at home. If any of these instructions conflict with those you received from the surgeon, please seek clarification from your surgeon's office. DEEP BREATHING EXERCISES This exercise helps promote good air exchange and helps to prevent pneumonia after surgery. Breathe in slowly and deeply through the nose. Hold your breath for a few seconds and then exhale slowly through the mouth. Repeat this three times and then cough.Coughing helps to clear your lungs. If you have had a surgery with an incision into your abdomen or chest, press gently against your incision with a pillow or a folded blanket when you cough. Please be aware - it may not be barone to cough following some types of surgeries involving the eyes,ears, sinuses and throat. Always follow your doctor's instructions. LEG EXERCISE These exercises help promote good circulation and help to prevent blood clots after surgery. Point your toes to the ceiling and then point them to the wall. Do this slowly about 15-20 times. You may also move your feet in circles. Do the exercise that is most comfortable for you. If you have had surgery involving your shoulder or arm, we recommend you move your fingers. PRACTICING We ask that you begin practicing these exercises before your surgery. After surgery try to do both exercises at least every 2 hours during the day and early evening. SURGICAL SITE INFECTION PREVENTION What is a Surgical Site Infection? Infection can happen to the area of the body where surgery is done. This is called a surgical site infection (SSI). A SSI does not happen very often. Can SSIs be treated? Antibiotics are used to treat SSI. Some patients may need another surgery to treat the infection. The doctor will discuss treatment options with you. What are some of the things that hospitals are doing to prevent SSIs? Soap and water or alcohol hand rub are used before and after caring for each patient. Special soap is used to clean surgery workers hands and arms just before the surgery. Masks, gowns, gloves and hair covers are worn during the surgery to keep the area clean. Hair in the surgery area may be removed with clippers (not razors). A special soap that kills germs is used to clean the skin at the surgery site. Antibiotics may be given before the surgery starts. What can you do to prevent SSIs? Before surgery: You may be asked to shower or bathe with a special soap that kills germs the night before and the day of surgery. Use the soap as you were told. If you smoke, stop or cut down. Ask your doctor about ways to quit. Do not shave near where you will have surgery. Shaving can irritate the skin and make it easier to get and infection. After surgery: Be sure that the doctors and nurses clean their hands before and after touching you. Be sure your family and friends clean their hands before and after visiting you. Do not be afraid to remind them. * Care for your wound at home as told by your doctor or nurse * Call your doctor right away if you have fever, redness, increased pain, or drainage at the surgery site. Further questions? Contact the doctor, nurse or the Infection Prevention and Control department if you have any questions. PATIENT RIGHTS AND RESPONSIBILITIES As a patient at [facility], you have the right to: Receive medical care and be informed of who is taking care of you Be treated with dignity and respect Have a family member/sales representative raw fibers of choice and your physician notified of your admission Receive information and actively participate in decisions about your care and treatment Refuse care, treatment and services Decide who may provide your support and speak for you Access scientologist and spiritual services Participate in ethical issues and questions about your care Receive private and confidential care Have appropriate assessment and management of your pain Know guest visitation restrictions or limitations Have an advance directive Access protective services Consent or refuse to participate in research studies or production or recordings, films or other images Have resolution of your complaints Receive information of hospital charges and payment methods Patient/patient sales representative raw fibers responsibilities are to: Provide information about health status to facilitate care, treatment and services Follow the treatment, plan, keep appointments and speak up when you do not understand the plan Respect the rights of other patients and healthcare personnel Follow organizational rules and regulations that support quality care and a safe environment Fulfill financial obligations as promptly as possible Bathing Before Surgery- Patients greater than 2 months of age You can help to lower your chance of infection at the site of your surgery by showering or bathing with a special soap called chlorhexidine gluconate (CHG). Germs live on your skin. This special soapwill help lower the amount of germs so they do not get into your surgery site. Special points to know: Do not use this soap if you know that you are allergic to CHG. Shower or bathe with CHG the night before and the morning of surgery. Do not shave the area of your body where the surgery will be done within 7 days of surgery. The CHG may make your skin a little dry, but do not use lotion. Steps for Bathing: Wash your hair as usual with your normal shampoo. Rinse your hair and body well after you shampoo to get rid all of the shampoo. Wash gently with the CHG from the neck down, but do not scrub the skin to hard. Be sure to wash thearea of your surgery very well. If showering, turn the water off while washing and then turn the water back onto rinse. Do not get CHG in the genital (private) area. Do not get CHG in the eyes, ears, nose or mouth. (If the soap gets into the eyes, flush them immediately with water). Do not wash with regular soap after CHG is used. Pat skin dry with a soft, clean towel. Patient should sleep in freshly laundered night clothes and report for surgery in clean clothes. documented in this encounterKind[facility] [id number] Evaluation + Plan note* Assessment & Plan Note - Radha Bertrand MD - 04/14/2024 9:26 AM EDT Associated Problem(s): AVM (arteriovenous malformation) RLE angio, possible intervention [facility] [id number] Miscellaneous Notes* Assessment & Plan Note - Radha Bertrand MD - 04/14/2024 9:26 AM EDTAssociated Problem(s): AVM (arteriovenous malformation) RLE angio, possible intervention documented in this encounterSt[facility] History of Present illness Narrative* Radha Bertrand MD - 04/14/2024 8:30 AM EDT Images from the original note were not included. To: No primary care provider on file. HPI: Will Ralph is a 38 y.o. male with 38-year-old gentleman with liver cirrhosis and multiple medical problems. He used to drink alcohol does not drink anymore. He has right lower extremity swelling. Hehas long history of varicose veins and treatment. He had ulcers near the heel. He comes in with significant swelling and CT angiogram that shows evidence of shunting and filling of the venous segments of the right lower extremity in the arterial phase. There is no clear arteriovenous fistula. To meit seems like arteriovenous malformation. I discussed with him the diagnosis and recommended an angiogram to better identify this AV malformation and possible treatment.. Review of Systems: Review of Systems Constitutional: Negative. HENT: Negative. Respiratory: Negative. Cardiovascular: Negative. Gastrointestinal: Negative. Endocrine: Negative. Genitourinary: Negative. Musculoskeletal: Negative. Skin: Negative. Neurological: Negative. Hematological: Negative. Medications: No current outpatient medications on file prior to visit. No current facility-administered medications on file prior to visit. Past Medical History: History reviewed. No pertinent past medical history. Past Surgical History: No past surgical history on file. Social and Family History: Social History Socioeconomic History Marital status: Single Spouse name: Not on file Number of children: Not on file Years of education: Not on file Highest education level: Not on file Occupational History Not on file Tobacco Use Smoking status: Never Smokeless tobacco: Former Substance and Sexual Activity Alcohol use: Defer Drug use: Defer Sexual activity: Not on file Other Topics Concern Not on file Social History Narrative Not on file Social Determinants of Health Financial Resource Strain: High Risk (02/27/2023) Received from [employer] Overall Financial Resource Strain (CARDIA) Difficulty of Paying Living Expenses: Very hard Food Insecurity: No Food Insecurity (04/14/2024) Hunger Screening Food Insecurity - Worry: Never True Food Insecurity - Inability: Never True Transportation Needs: No Transportation Needs (02/27/2023) Received from [employer] PRAPARE - Transportation Lack of Transportation (Medical): No Lack of Transportation (Non-Medical): No Physical Activity: Sufficiently Active (02/27/2023) Received from [employer] Exercise Vital Sign Days of Exercise per Week: 7 days Minutes of Exercise per Session: 120 min Stress: Stress Concern Present (02/27/2023) Received from [employer] [place] of Occupational Health - Occupational Stress Questionnaire Feeling of Stress : Very much Social Connections: Socially Isolated (02/27/2023) Received from [employer] Social Connection and Isolation Panel [NHANES] Frequency of Communication with Friends and Family: More than three times a week Frequency of Social Gatherings with Friends and Family: Patient declined Attends Synagogue Services: Never Active Member of Clubs or Organizations: No Attends Club or Organization Meetings: Never Marital Status: Never Interpersonal Safety: Not At Risk (02/27/2023) Received from [employer] Humiliation, Afraid, Rape, and Kick questionnaire Fear of Current or Ex-Partner: No Emotionally Abused: No Physically Abused: No Sexually Abused: No Housing Instability: High Risk (02/27/2023) Received from [employer] Housing Stability Vital Sign Unable to Pay for Housing in the Last Year: Yes Number of Places Lived in the Last Year: 1 Unstable Housing in the Last Year: No History reviewed. No pertinent family history. Recent Labs: Recent and relative labs were reviewed and interpreted and contributed to the assessment and plan below. Vitals: BP 162/80 (BP Site: Left Arm, BP Postition: Sitting, BP CUFF SIZE: M (9-13 inches)) Pulse 95 Ht170.2 cm (5' 7 ) Wt 70.3 kg (155 lb) SpO2 99% BMI 24.28 kg/m Body mass index is 24.28 kg/m . Physical Exam: Physical Exam Constitutional: Appearance: Normal appearance. HENT: Head: Normocephalic and atraumatic. Mouth/Throat: Mouth: Mucous membranes are moist. Eyes: Extraocular Movements: Extraocular movements intact. Pupils: Pupils are equal, round, and reactive to light. Cardiovascular: Rate and Rhythm: Normal rate and regular rhythm. Pulmonary: Effort: Pulmonary effort is normal. Breath sounds: Normal breath sounds. Abdominal: General: Abdomen is flat. Bowel sounds are normal. Palpations: Abdomen is soft. Musculoskeletal: General: Normal range of motion. Cervical back: Normal range of motion. Skin: General: Skin is warm and dry. Neurological: General: No focal deficit present. Mental Status: He is alert and oriented to person, place, and time. Mental status is at baseline. Psychiatric: Mood and Affect: Mood normal. Behavior: Behavior normal. Thought Content: Thought content normal. Judgment: Judgment normal. Recent testing: CT angiogram of the abdomen pelvis with runoff Assessment and Plan: Problem List Varicose veins of legs - Primary AVM (arteriovenous malformation) Will was seen today for abnormal ct angio abd aorta runoff, r/o pad, - dvt, normal . Diagnoses and all orders for this visit: Varicose veins of both lower extremities with pain AVM (arteriovenous malformation) Radha Bertrand MD, HÉCTOR, RPVI, FSVS, FACS [facility] This note was created with the assistance of a speech recognition program. While intending to generate a timely document that accurately reflects the content of the visit, no guarantee can be provided that every grammatical or spelling mistake has been or will be identified or corrected. Thank you for your understanding. documented in this encounterSt. [facility] Hospital07-[facility] NoteOncology Progress Note Chief Complaint Follow up on anemia, just [...] deficiency, cellulitis, and left leg abscess. Surgical historyincludes jaw surgery and I&D lower LE. Medications include cholecalciferol, furosemide, lactulose, multivitamin, naloxone, ondansetron, oxycodone, potassium chloride, spironolactone and Bactrim. He denies personal history of cancer. He is unsure of family cancer history but does not believe anyfamily members had cancer. He is referred by Loreta Cummings NP for iron deficiency anemia and thrombocytopenia. [...] for about a week now. Has been busyat work and hasn't been able to refill [...] anemia per outside records previously seen at [facility] hematology by Dr. 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 This isnot associated with increased risk to develop clinical symptoms of HH and elevated levels are likely from liver disease and not a result of this. Wbc count intermittently low, mild. Pancytopenia possibly cirrhosis related but will follow closelywith repeat labs Follow-up With When Contact Information Janet PAYNE-MONTY, Ella Polk, ONC [facility] [address] (more content not included)...[facility]06-[facility] NoteOncology Progress Note Chief Complaint New pt here for Iron deficiency, Pt states that he seen a Hem doctor in [place] about a [address] Mayuri Black. Pt states he never received Iron because his levels were up and down the whole time. Diagnoses 1. Pancytopenia (D61.818: Other pancytopenia) 2. Liver cirrhosis, alcoholic (K70.30: Alcoholic cirrhosis of liver without ascites) 3. Iron overload (E83.19: Other disorders of iron metabolism) Oncological History/ROS/PE/Assessment and Plan Mr. Ralhp is a 38yr old male former smoker with a history of anemia, cirrhosis, alcohol abuse, cholelithiasis, diarrhea, elevated INR, epigastric pain, esophageal varices, HTN, headache, hypokalemia, iron deficiency anemia, nausea, portal venous hypertension, severe back pain, thrombocytopenia, varicose veins, venous ulcer, vitamin D deficiency, cellulitis, and left leg abscess. Surgical historyincludes jaw surgery and I&D lower LE. Medications include cholecalciferol, furosemide, lactulose, multivitamin, naloxone, ondansetron, oxycodone, potassium chloride, spironolactone and Bactrim. He denies personal history of cancer. He is unsure of family cancer history but does not believe anyfamily members had cancer. He is referred by Loreta Cummings NP for iron deficiency anemia and thrombocytopenia. [...] for about a week now. Has been busyat work and hasn't been able to refill [...] anemia per outside records previously seen at [facility] hematology by Dr. Restrepo [facility], last visit April 2023 Initially treated with [...] smear, haptoglobin, basil, ld (more content not included)...[facility] Hospital Discharge instructions Follow Up Care 02/25/2024 10:04:03 With:Janet HUERTA, Ella Polk, ONC Address: [address] [phone] When: Unknown Comments:start folic acid 1mg daily- [facility], cmp, ldh, reticulocytes, haptoglobin in 1mofollow-up with Dr. Lees in 1mo [facility]05-31-2024 Hospital Discharge instructions Follow Up Care 02/05/2024 13:11:28 With:Janet HUERTA, Ella Polk, ONC Address: [address] [address] [phone] When: Unknown Comments:get records from [facility] hematologyfollow-up in 2-3 weekswill get labs prior to visit [facility]05-22-2024 Hospital Discharge instructions Patient Education 01/27/2024 11:32:44 [...] Follow these instructions at home: Medicines Take fdwa-jip-cfhbchk and prescription medicines only as told by [...] bruising, and follow instructions about how to preventfalls. ?Wear a medical alert bracelet or carry a card that lists what medicines you take. Lifestyle Exercise regularly. Ask your health care provider about some good activities for you. Talk with your health care provider about maintaining a healthy weight. If needed, ask about losingweight. Eat a diet that is low in fat and cholesterol. If you need help, talk with your health care provider. Do not drink alcohol. Do not use any products that contain nicotine or tobacco. These products include cigarettes, chewing tobacco, and vaping devices, such as e-cigarettes. If you need help quitting, ask your health careprovider. General instructions Take good care of your feet. To do this: ?Wear comfortable shoes that fit well. ?Check your feet often for any cuts or sores. Get an annual influenza vaccine. Keep all follow-up visits. This is important. Where to find more information Society for Vascular Surgery: vascular.org [place] Heart Association: heart.org National Heart, Lung, and Blood [place]: nhlbi.nih.gov Contact a health care provider if: [...] to remember the main warning signs of astroke: ?B - Balance. Signs are dizziness, sudden trouble walking, or loss of balance. ?E - Eyes. Signs are trouble seeing or a sudden change in vision. ?F - Face. Signs are sudden weakness or numbness of the face, or the face or eyelid drooping on oneside. ?A - Arms. Signs are weakness or [...] provider. Document Revised: 02/25/2021 Document Reviewed: 02/25/2021 [employer] Patient Education 2022 [employer]. 01/27/2024 11:32:41 Iron Deficiency Anemia, Adult Iron Deficiency Anemia, Adult Iron deficiency anemia is a condition in which the concentration of red blood cells or hemoglobin in the blood is below normal because of too little iron. Hemoglobin is a substance in red blood cellsthat carries oxygen to the body's tissues. When [...] supplement. Medicines to make heavy menstrual flow motor bike mechanic. Surgery or additional testing procedures to determine the cause of your anemia. You may need repeat blood tests to determine whether treatment is working. If the treatment does not seem to be working, you may need more tests. Follow these instructions at home: Medicines Take aarg-ssj-xrawckr and prescription medicines only as told by [...] your diet. Your provider may recommend that youeat foods that contain a lot of iron, [...] to keep your urine pale yellow. Take kyto-ape-wncyysp or prescription medicines. Eat foods that are [...] the cause of your iron deficiency. Take kbhg-sgy-fqogrsk and prescription medicines only as told by [...] provider. Document Revised: 10/01/2022 Document Reviewed: 10/01/2022 [employer] Patient Education 2022 [employer]. 01/27/2024 11:32:38 Peripheral Edema Peripheral Edema Peripheral [...] a temporary dent in your skin (pitting edema).You may not be able to move your swollen arm or leg as much as usual. There are many causes of peripheral edema. It can happen because of a complication of other conditions such as heart failure, kidney disease, or a problem with your circulation. It also can be a sideeffect of certain medicines or happen because of [...] to move the fluid back into your bloodvessels, and it may help the swelling go [...] by your health care provider. Medicines Take ubgn-zvo-tngtenf and prescription medicines only as told by [...] provider. Document Revised: 04/28/2022 Document Reviewed: 04/28/2022 [employer] Patient Education 2022 [employer] 01/27/2024 11:32:35 Thrombocytopenia Thrombocytopenia Thrombocytopenia is a [...] Follow these instructions at home: Medicines Take onnu-knw-rbijgjx and prescription medicines only as told by [...] provider. Document Revised: 02/06/2022 Document Reviewed: 02/06/2022 [employer] Patient Education 2022 [employer]. 01/27/2024 11:32:32 Esophageal Varices Esophageal Varices Esophageal [...] Follow these instructions at home: Medicines Take itdi-ohb-aaljjdc and prescription medicines only as told by [...] provider. Document Revised: 12/11/2020 Document Reviewed: 12/11/2020 [employer] Patient Education 2022 [employer] 01/27/2024 11:32:31 Cirrhosis Cirrhosis Cirrhosis is long-term [...] provider before taking any new medicines, including mhre-glj-oktpqap medicines such as NSAIDs. Rest as needed. [...] provider. Document Revised: 06/06/2021 Document Reviewed: 06/06/2021 [employer] Patient Education 2022 [employer]. 01/27/2024 11:32:30 Alcoholic Liver Disease Alcoholic Liver [...] can provide emotional support and guidance. Take xqul-vmp-jykgatc and prescription medicines only as told by [...] provider. Document Revised: 06/06/2021 Document Reviewed: 06/06/2021 [employer] Patient Education 2022 [employer]. 01/27/2024 11:32:27 DASH Eating Plan DASH Eating [...] Dairy Whole or 2% milk, cream, and wifi-xra-rfiu. Whole or full-fat cream cheese. Whole-fat or [...] more information National Heart, Lung, and Blood [place]: www.nhlbi.nih.gov [place] Heart Association: www.heart.org Academy of Nutrition and [...] provider. Document Revised: 07/27/2020 Document Reviewed: 07/27/2020 [employer] Patient Education 2022 [employer]. Follow Up Care 10/28/2023 11:01:13 With:John ALBERTS, KEI Perkins, [facility] Address: [address] [address]- When:Within 3 Month(s) Comments:f/u labs, HTN, cirrhosis, gallstones, thrombocytopenia [facility] 04-24-2024 NoteHNO ID: [id number] Author: MARGARET ZUÑIGA MD Service: ? Author Type: Physician Type: Progress Notes Filed: 12/30/2023 16:58 Note Text: PROGRESS NOTES PATIENT NAME: Will Ralph Assessment ASSESSMENT AND PLAN The patient is a 37-year-old male with a known history of alcoholic cirrhosis and portal hypertension. He presents with abdominal pain and abnormal labs from [facility]. These values are visible in Care Everywhere. [...] option of seeing [facility] surgery at [place] as this would be the best option [...] gallstones. Blood work was also performed through [facility] along with the CT scan. His liver function tests were elevated along with his INR and bilirubin aware of his baseline laboratory values. He does see a truck service technician and is being treated for liver failure. [...] naloxone 4 mg/actuation nasal spray (NARCAN) 1 [place] by nasal (alternating) route. oxyCODONE ir (OXYIR) [...] recent labs and imaging results. Margaret Zuñiga [facility]04-24-2024 History of Present illness Narrative* Margaret Zuñiga MD - 12/30/2023 4:50 PM EDT PROGRESS NOTES PATIENT NAME: Will Ralph Assessment ASSESSMENT AND PLAN The patient is a 37-year-old male with a known history of alcoholic cirrhosis and portal hypertension. He presents with abdominal pain and abnormal labs from [facility]. These values are visible in Care Everywhere. [...] the option of seeing [facility] surgery at [facility] as this would be the best option if he ultimately requiredcholecystectomy but I am somewhat skeptical that this [...] gallstones. Blood work was also performed through [facility] along with the CT scan. His liver function tests were elevated along with his INR and bilirubin aware of his baseline laboratory values. He does see a truck service technician and is beingtreated for liver failure. He states that his [...] naloxone 4 mg/actuation nasal spray (NARCAN) 1 [place] by nasal (alternating) route. oxyCODONE ir (OXYIR) [...] results. Margaret Zuñiga MD [facility] Discharge instructions Patient Education 12/23/2023 12:42:20 [...] dietitian for more information. General instructions Take wsvs-eku-oiuqrtq and prescription medicines only as told by [...] provider. Document Revised: 05/30/2022 Document Reviewed: 05/30/2022 [employer] Patient Education 2022 [employer]. 12/23/2023 12:42:19 Preventing Vitamin D Deficiency Preventing [...] condition in which a person's bones become softerthan normal. In adults, this condition is called [...] Dietary supplements. Direct exposure to natural sunlight. Infant formula, for infants. Knowing how much vitamin [...] skin to direct sunlight for at least 15minutes every day. If you have dark skin, [...] such as almond, soy, or oat milks. ?[place] juice. ?Margarine. When choosing foods, check the [...] including vitamins, herbs, eye drops, creams, and nloi-hhz-flbaovb medicines. Take lmhu-oom-ogibfhe and prescription medicines only as told by your health care provider. Take supplements only as told by your health care provider. To increase absorption of your supplement, take it with a meal or snack. Summary Vitamin D plays a ferraro role in the health of bones and teeth, reduces inflammation, and improves thebody's defense system (immune system). A vitamin D [...] provider. Document Revised: 05/30/2022 Document Reviewed: 05/30/2022 [employer] Patient Education 2022 [employer]. 12/23/2023 12:42:17 Nausea, Adult Nausea, Adult Nausea [...] water added (diluted fruit juice). Eat bland, yqad-hn-xxpwpt foods in small amounts as you are able. These foods include bananas, applesauce, rice, lean meats, toast, and crackers. Avoid drinking fluids that contain a lot of sugar or caffeine, such as energy drinks, sports drinks, and soda. Avoid alcohol. Avoid spicy or fatty foods. General instructions Take xarl-qcj-mdrxytl and prescription medicines only as told by your health care provider. Rest at home while you recover. Drink enough fluid to keep your urine pale yellow. Breathe slowly and deeply when you feel nauseous. Avoid smelling things that have strong odors. Wash your hands often using soap and water for at least 20 seconds. If soap and water are not available, use hand business technology architect. Make sure that everyone in your household [...] recommendations for eating and drinking and take wbix-eej-dgvdfrs and prescription medicinesonly as told by your [...] provider. Document Revised: 02/28/2022 Document Reviewed: 02/28/2022 [employer] Patient Education 2022 [employer]. 12/23/2023 12:42:14 Cellulitis, Adult Cellulitis, Adult Cellulitis [...] Follow these instructions at home: Medicines Take unfc-xyg-fpaxxhm and prescription medicines only as told by [...] such as antibiotic medicines or antihistamines. Take qszq-kbi-nyhhblw and prescription medicines only as told by [...] provider. Document Revised: 06/04/2022 Document Reviewed: 06/05/2022 [employer] Patient Education 2022 [employer]. 12/23/2023 12:42:12 Esophageal Variceal Ligation Esophageal Variceal Ligation Esophageal variceal ligation (EVL) is a surgical procedure to treat or prevent bleeding in the partof the body that moves food from the mouth to the stomach (esophagus). The procedure is also calledesophageal variceal banding. You may need this procedure [...] prevent bleeding. This procedure is usually repeated in1 to 2 weeks. It may take 3 to 4 procedures to treat all the varices. Tell a health care provider about: Any allergies you have. All medicines you are taking, including vitamins, herbs, eye drops, creams, and peoy-hio-hpyfkpi medicines. Any problems you or family members [...] provider tells you to take them. Taking lsmh-idy-vwjgqln medicines, vitamins, herbs, and supplements. General information You may need a blood test to find out your blood type in case you need a blood transfusion. Plan to have someone take you home from the hospital or clinic. Plan to have a responsible adult care for you for at least 24 hours after you leave the hospital orclinic. This is important. Ask your health care [...] blood oxygen level will be monitored until youleave the hospital or clinic. If you do [...] provider. Document Revised: 12/11/2020 Document Reviewed: 12/11/2020 [employer] Patient Education 2022 [employer]. 12/23/2023 12:42:09 Nausea and Vomiting, Adult Nausea and Vomiting, Adult Nausea is the feeling that you have an upset stomach or that you are about to vomit. As nausea getsworse, it can lead to vomiting. Vomiting is when stomach contents forcefully come out of your mouthas a result of nausea. Vomiting can make [...] water added (diluted fruit juice). Eat bland, wgxt-sr-ansesy foods in small amounts as you are able. These foods include bananas, applesauce, rice, lean meats, toast, and crackers. Avoid fluids that contain a lot of sugar or caffeine, such as energy drinks, sports drinks, and soda. Avoid alcohol. Avoid spicy or fatty foods. General instructions Take kabz-sko-qaclfwc and prescription medicines only as told by your health care provider. Drink enough fluid to keep your urine pale yellow. Wash your hands often using soap and water for at least 20 seconds. If soap and water are not available, use hand business technology architect. Make sure that everyone in your household [...] you are about to vomit. As nausea getsworse, it can lead to vomiting. Vomiting can make you feel weak and cause you to become dehydrated. Follow instructions from your health care provider about eating and drinking to prevent dehydration. Take fokd-eep-lhomaxm and prescription medicines only as told by [...] provider. Document Revised: 02/28/2022 Document Reviewed: 02/28/2022 [employer] Patient Education 2022 [employer]. 12/23/2023 12:22:45 Gallbladder Eating Plan Gallbladder Eating Plan High blood cholesterol, obesity, a sedentary lifestyle, an unhealthy diet, and diabetes are risk factors for developing gallstones. If you have a gallbladder condition, you may have trouble digesting fats and tolerating high fat intake. Eating a low-fat diet can help reduce your symptoms and may be helpful before and after havingsurgery to remove your gallbladder (cholecystectomy). Your health [...] fat per serving. Choose foods with less than3 grams of fat per serving. Shopping Choose nonfat and low-fat healthy foods. Look for the words nonfat, low-fat, or fat-free. Avoid buying processed or prepackaged foods. Cooking Cook using low-fat methods, such as baking, broiling, grilling, or boiling. Cook with small amounts of healthy fats, such as olive oil, grapeseed oil, canola oil, avocado oil,or sunflower oil. What foods are recommended? All [...] food, fatty cuts of meat, ice cream, malay toast, sweet rolls, pizza, cheese bread, foods covered with butter, creamy sauces, or cheese. Fried foods. These include malay fries, tempura, battered fish, breaded chicken, fried breads, andsweets. Foods that cause bloating and gas. The [...] provider. Document Revised: 08/08/2022 Document Reviewed: 08/08/2022 [employer] Patient Education 2022 [employer] 12/23/2023 12:22:34 Cholecystitis Cholecystitis Cholecystitis is inflammation of the gallbladder. Cholecystitis is often called a gallbladder attack. The gallbladder is a pear-shaped organ that lies beneath the liver on the right side of the body.The gallbladder stores a fluid that helps the [...] placed into the gallbladder to drain fluid. Thismay be done for people with moderate to severe cholecystitis who cannot have surgery. Follow these instructions at home: Medicines Take epbd-dbf-iruqgbk and prescription medicines only as told by your health care provider. If you were prescribed an antibiotic medicine, take it as told by your health care provider. Do notstop taking the antibiotic even if you start to feel better. General instructions Follow instructions from your health care provider about what to eat or drink. When you are allowedto eat, avoid eating or drinking anything that triggers your symptoms. Do not use any products that contain nicotine or tobacco. These products include cigarettes, chewing tobacco, and vaping devices, such as e-cigarettes. If you need help quitting, ask your health careprovider. Keep all follow-up visits. This is important. [...] for eating and drinking. Avoid eating anything thattriggers your symptoms. This information is not intended to replace advice given to you by your health care provider. Make sure you discuss any questions you have with your health care provider. Document Revised: 02/25/2022 Document Reviewed: 02/25/2022 [employer] Patient Education 2022 [employer]. 12/23/2023 12:22:32 Cholelithiasis Cholelithiasis Cholelithiasis is a [...] different parts that make bile. This can happenif the bile: Has too much bilirubin. This [...] and refined carbohydrates, such as white bread andwhite rice. Being obese. Being older than age [...] it can cause an infection or inflammation ofyour gallbladder (cholecystitis), liver, or pancreas. This can [...] of your gallbladder and bile ducts (biliary system)using non-harmful radioactive material and special cameras that can see the radioactive material. Endoscopic retrograde cholangiopancreatogram. This involves inserting a small tube with a camera onthe end (endoscope) through your mouth to look [...] for 12 24 hours (except for water andclear liquids). This helps to cool down your gallbladder. After 1 or 2 days, you can start to eata diet of simple or clear foods, such [...] Follow these instructions at home: Medicines Take rqhy-fxr-hnqbjux and prescription medicines only as told by [...] important. Where to find more information [place] of Diabetes and Digestive and Kidney Diseases: [...] different parts that make bile. This can happenif your bile has too much bilirubin or [...] provider. Document Revised: 07/16/2020 Document Reviewed: 07/16/2020 [employer] Patient Education 2022 [employer]. Follow Up Care 12/14/2023 11:01:47 With:John ALBERTS, KEI Perkins, [facility] Address: [facility] [address]mel Fern[address]dez, [facility] A [place] [id number]- When:Within 1 Month(s) Comments:f/u abd pain, gall stone, cirrhosis, thrombocytopenia, fatigue [facility] 04-07-2024 Evaluation + Plan noteExtracted from: Title:Discharge Note Author:Rajesh MULTANI, Desi Love ate:12/13/23 Stable Discharge To, Anticipated II - [...] Oral, q6hr, PRN, Not taking Potassium Chloride (Vew-Mhgq-Tzs M20) 20 mEq oral tablet, extended release, [...] tab(s), Oral, Daily With When Contact Information Loreta Cummings In [address], [address] [place] [id number]- [facility] (1) Additional Instructions: Extracted from: Title:Admission H & P Author:[facility]ajesh [facility]UTANI[facility] Date:12/11/23 38 y/o M admited for contras [...] Future Appointments Appointment Date:01/27/2024 09:40:00 AM Scheduled Provider:Loreta Padilla Location:[facility] Appointment Type:FM Open Appointment Date:05/12/2024 03:15:00 PM Scheduled Provider:Carrol MULTANI, Mario Xiong [place] Type:[facility] Follow Up Future Scheduled Tests Laboratory* HgbA1c 07/24/23 * Gkwme-5-Dvhpenadgri 09/01/23 * Ceruloplasmin 09/01/23 * Antimitochondrial Antibody, [...] Acid 07/24/23 * Vitamin B12 Level 07/24/23 [facility]04-07-2024 Hospital Discharge instructions Patient Education 12/13/2023 10:04:57 Drug Allergy, Lrwb-ok-Nurn Drug Allergy A drug allergy is when [...] medicines that you are allergic to. Take vlck-ltj-wufoape and prescription medicines only as told by your doctor. If you were given allergy medicines, do not drive until your health care provider tells you it is safe. If you have hives or a rash: ?Use dcxo-isj-qnbfsnc medicines as told by your doctor. ?Put [...] provider. Document Revised: 02/03/2022 Document Reviewed: 02/03/2022 [employer] Patient Education 2022 [employer]. 12/13/2023 10:04:49 Chronic Back Pain Chronic Back [...] pull them backward. Do not sit or knitting machine fixer one place for long periods of time. [...] prescription pain medicine, or muscle relaxants. Take wvvl-eym-bbhcgod and prescription medicines onlyas told by your health care provider. Ask your health care provider if the medicine prescribed to you: ?Requires you to avoid driving or using machinery. ?Can cause constipation. You may need to take these actions to prevent or treat constipation: ?Drink enough fluid to keep your urine pale yellow. ?Take kiqt-ohv-jjrejop or prescription medicines. ?Eat foods that are [...] provider. Document Revised: 10/03/2020 Document Reviewed: 10/03/2020 [employer] Patient Education 2022 [employer]. 12/13/2023 10:04:40 Cirrhosis Cirrhosis Cirrhosis is long-term [...] provider before taking any new medicines, including odaw-sfb-hnnmqfl medicines such as NSAIDs. Rest as needed. [...] provider. Document Revised: 06/06/2021 Document Reviewed: 06/06/2021 [employer] Patient Education 2022 [employer]. Follow Up Care 12/11/2023 09:05:25 With:Loreta Cummings Address: [facility] [address] [address] [address] [place] (1) When: Unknown [facility]04-07-2024 NoteAdmission and Discharge Information Admitting Physician - Desi Mena MD Admitting Diagnoses: Discharge Order Date Discharge Patient - Ordered -- 12/13/23 7:49:00 EDT Discharge Diagnoses 1. Intractable pain, 12/11/2023 2. Cirrhosis, 12/11/2023 3. Tobacco user, 12/11/2023 4. Megaloblastic anemia, 12/11/2023 5. Thrombocytopenia, 12/11/2023 Intractable back pain, 12/11/2023 Medication reaction, 12/11/2023 Procedure History EGD - esophagogastroduodenoscopy (11/11/2023), Esophagogastroduodenoscopy (09/30/2023), I and D, Jaw. Hospital Course This is a 38 y/o M w/mhx of alcoholic cirrhosis, tobacco use, thrombocytopenia, who was admitted for intractable back pain believed to be 2/2 rare complication from Definity contrast given during stress test. He was treated w/fluids and IV pain meds. He improved steadily, kept urine out put, did not develop any signs or symptoms of anaphylaxis and on day of discharge pain had resolved. He will be d/c. No medication changes where made on this admission. - On day of discharge patient was vitally, hemodynamically clinically stable. Patient verbalized understanding and agreement with above. A good rich effort was made to discuss the above with the patient. Teach back method was used when discussing plan and need for referrals with patients. - Follow Up Patient is to follow up with PCP for transition of care - Discharge Instructions: Given Discharge Medications: Reviewed Discharge Status: Improved Discharge disposition: Home - Prescriptions reviewed with Patient - 32 minutes time spent in discharge timing. Physical Exam Vitals & Measurements T: 37.2 ?C(Axillary) TMIN: 36.6 ?C(Axillary) TMAX: 37.2 ?C(Axillary) HR: 87(Monitored) BP: 119/68 SpO2: 100% WT: 73.2 kg General: alert, no acute distress Psychiatric: cooperative, affect appropriate for age Neurological: awake, alert, oriented, speech normal Cardiovascular: no overt murmurs Respiratory: no adventitious breath sounds Gastrointestinal: soft NT, NG, NR Extremities: no rash Tests Performed BMP -- Results Pending -- eGFR -- Results Pending -- CT Abdomen/Pelvis w/o Contrast Please visit your patient portal for your results or contact your primary care physician. Discharge Plan Patient Discharge Condition Stable Discharge Disposition Discharge To, Anticipated II - Home independently Discharged to - Home independently Transported by, Anticipated - Family Discharge Medication List Prescriptions BP cuff device and appropriate size please, See Instructions lactulose 10 g/15 mL Oral Syrup, 20 gm= 30 mL, Oral, QID, 1 refills lidocaine Top 5% film Patch, 1 patch(es), Topical, Daily, Not taking Narcan 4 mg/0.1 mL nasal spray, 4 mg, Nasal, As Directed, Not taking oxyCODONE 5 mg Tab, 0.5 tab, Oral, q6hr, PRN, Not taking Potassium Chloride (Idq-Hrmm-Mbr M20) 20 mEq oral tablet, extended release, 20 mEq= 1 tab(s), Oral,BID, 3 refills, Not taking Zofran ODT 4 [...] Tab-A-Scott oral tablet, 1 tab(s), Oral, Daily Follow-up With When Contact Information Loreta Cummings In 0 days [address], [address] [address] [place] (1) [facility]Result Comment: Electronically Signed By: Rajesh MULTANI, Desi\.br\Date and Time Signed: 12/13/23 07:52 [id number] Hospital Discharge instructions Patient Education 11/11/2023 16:42:11 Endoscopy, Care After Procedure [facility] [place] Care After Procedure Please read the instructions outlined below and refer to this sheet in the next few weeks. These discharge instructions provide you with general information on caring for yourself [facility] [facility] Your doctor may also give you specific [...] blood. Document Released: 04/07/2005 Document Re-Released: 02/15/2007 [facility] [employer]. 11/11/2023 16:42:11 Esophageal Varices Esophageal Varices Esophageal [...] Follow these instructions at home: Medicines Take owyj-rzd-wmzeghf and prescription medicines only as told by [...] provider. Document Revised: 12/11/2020 Document Reviewed: 12/11/2020 [employer] Patient Education 2022 [employer]. Follow Up Care 10/09/2023 11:37:06 With:Carrol MULTANI, JOE [place], [facility] Address: [address], [address] [phone] When: Unknown Comments:Office will call to schedule follow up appointment and/or review any pending biopsy resultsCall forany problems. [facility]02-21-2024 Hospital Discharge instructions Patient Education 10/28/2023 15:32:25 [...] of hard liquor (44 mL). Medicines Take cvcq-qwr-inqjmqf and prescription medicines only as told by [...] Centers for Disease Control and Prevention: www.cdc.gov/heartdisease [place] Heart Association: www.heart.org Summary Heart disease is [...] provider. Document Revised: 04/23/2022 Document Reviewed: 04/23/2022 [employer] Patient Education 2022 [employer]. 10/28/2023 15:32:24 Form - Blood Pressure Record [...] provider. Document Revised: 05/08/2022 Document Reviewed: 05/08/2022 [employer] Patient Education 2022 [employer]. 10/28/2023 15:32:23 DASH Eating Plan DASH Eating [...] Dairy Whole or 2% milk, cream, and uxhu-uup-gacp. Whole or full-fat cream cheese. Whole-fat or [...] more information National Heart, Lung, and Blood [place]: www.nhlbi.nih.gov [place] Heart Association: www.heart.org Academy of Nutrition and [...] provider. Document Revised: 07/27/2020 Document Reviewed: 07/27/2020 [employer] Patient Education 2022 [employer]. 10/28/2023 15:32:21 Hypertension, Adult Hypertension, Adult High [...] follow-up visits. This is important. Medicines Take ijkf-xsi-qfiterp and prescription medicines only as told by [...] provider. Document Revised: 07/01/2022 Document Reviewed: 07/01/2022 [employer] Patient Education 2022 [employer]. 10/28/2023 15:32:19 Alcoholic Liver Disease Alcoholic Liver [...] can provide emotional support and guidance. Take yhlb-rav-smcgmxe and prescription medicines only as told by [...] provider. Document Revised: 06/06/2021 Document Reviewed: 06/06/2021 [employer] Patient Education 2022 [employer]. 10/28/2023 15:32:16 Thrombocytopenia Thrombocytopenia Thrombocytopenia is a [...] Follow these instructions at home: Medicines Take sgmv-hbq-nqbpdys and prescription medicines only as told by [...] provider. Document Revised: 02/06/2022 Document Reviewed: 02/06/2022 [employer] Patient Education 2022 [employer]. 10/28/2023 15:32:14 Varicose Veins Varicose Veins Varicose [...] Follow these instructions at home: Medicines Take rsry-aax-zatbyjp and prescription medicines only as told by [...] provider. Document Revised: 02/05/2022 Document Reviewed: 02/05/2022 [employer] Patient Education 2022 [employer]. 10/28/2023 15:32:09 Nausea, Adult Nausea, Adult Nausea [...] water added (diluted fruit juice). Eat bland, rnce-bx-qvtvwm foods in small amounts as you are able. These foods include bananas, applesauce, rice, lean meats, toast, and crackers. Avoid drinking fluids that contain a lot of sugar or caffeine, such as energy drinks, sports drinks, and soda. Avoid alcohol. Avoid spicy or fatty foods. General instructions Take thqr-hpr-cylobvx and prescription medicines only as told by your health care provider. Rest at home while you recover. Drink enough fluid to keep your urine pale yellow. Breathe slowly and deeply when you feel nauseous. Avoid smelling things that have strong odors. Wash your hands often using soap and water for at least 20 seconds. If soap and water are not available, use hand business technology architect. Make sure that everyone in your household [...] recommendations for eating and drinking and take dwxs-hdf-qyhbqaw and prescription medicinesonly as told by your [...] Document Reviewed: 02/28/2022 Else[employer] Patient Education 2022 [employer]. [facility] 01-15-2024 Hospital Discharge instructions Follow Up Care 09/21/2023 12:59:46 With:Loreta Padilla FAM, [facility] Address: [place] [address]dez, [facility] [address] [address] When: Unknown [facility] 12-20-2023 Hospital Discharge instructions Patient [...] products, such as yogurt. General instructions Take qhhy-shc-femccoo and prescription medicines only as told by [...] provider. Document Revised: 05/08/2022 Document Reviewed: 05/08/2022 [employer] Patient Education 2022 [employer]. 08/26/2023 11:03:00 Stasis Dermatitis Stasis Dermatitis Stasis [...] care provider who specializes in skin diseases (senior architectural designer). How is this treated? This condition may [...] detergents, or perfumes. Medicines Take or use fmob-ziw-yrkydmw and prescription medicines only as told by [...] provider. Document Revised: 11/04/2021 Document Reviewed: 11/04/2021 [employer] Patient Education 2022 [employer]. 08/26/2023 11:02:52 Alcoholic Liver Disease Alcoholic Liver [...] can provide emotional support and guidance. Take ketj-cat-bibqjyl and prescription medicines only as told by [...] provider. Document Revised: 06/06/2021 Document Reviewed: 06/06/2021 [employer] Patient Education 2022 [employer]. 08/26/2023 10:41:25 Incision and Drainage Incision and [...] affected area is large, painful, infected, or nothealing well. Tell a health care provider about: Any allergies you have. All medicines you are taking, including vitamins, herbs, eye drops, creams, and xhuh-hdu-acwrsbw medicines. Any problems you or family members [...] provider tells you to take them. Taking rejp-kcd-gkvphwd medicines, vitamins, herbs, and supplements. Tests You [...] provider. Document Revised: 11/27/2022 Document Reviewed: 06/05/2022 [employer] Patient Education 2022 [employer] 08/26/2023 10:41:21 Stasis Dermatitis Stasis Dermatitis [...] care provider who specializes in skin diseases (senior architectural designer). How is this treated? This condition may [...] detergents, or perfumes. Medicines Take or use srnx-fsr-fskbiyn and prescription medicines only as told by [...] provider. Document Revised: 11/04/2021 Document Reviewed: 11/04/2021 [employer] Patient Education 2022 [employer]. 08/26/2023 10:41:14 Hypokalemia Hypokalemia Hypokalemia means that [...] products, such as yogurt. General instructions Take bwha-wtw-vvstwuo and prescription medicines only as told by [...] provider. Document Revised: 05/08/2022 Document Reviewed: 05/08/2022 [employer] Patient Education 2022 [employer]. Follow Up Care 07/24/2023 09:02:18 With:Loreta Padilla [facility], [facility] Address: [address], [address] [place] [phone] Business (1) When:Within 2 Month(s) Comments:3 mo f/u for ulcers, liver disease, labs [facility] 11-17-2023 Hospital Discharge instructions Patient Education 07/24/2023 09:14:21 [...] provider before taking any new medicines, including pzss-icd-izdwyvp medicines such as NSAIDs. Rest as needed. [...] provider. Document Revised: 06/06/2021 Document Reviewed: 06/06/2021 [employer] Patient Education 2022 [employer]. 07/24/2023 09:14:01 Heart Disease Prevention Heart Disease [...] of hard liquor (44 mL). Medicines Take izii-emt-firyief and prescription medicines only as told by [...] Centers for Disease Control and Prevention: www.cdc.gov/heartdisease [place] Heart Association: www.heart.org Summary Heart disease is [...] provider. Document Revised: 04/23/2022 Document Reviewed: 04/23/2022 [employer] Patient Education 2022 [employer]. 07/24/2023 09:13:57 Anemia Anemia Anemia is a [...] spleen. Follow these instructions at home: Take jktz-rah-qzsonhe and prescription medicines only as told by [...] provider. Document Revised: 07/08/2022 Document Reviewed: 07/31/2020 [employer] Patient Education 2022 [employer]. 07/24/2023 09:13:53 Hypokalemia Hypokalemia Hypokalemia means that [...] products, such as yogurt. General instructions Take xenv-ims-szuaqef and prescription medicines only as told by [...] provider. Document Revised: 05/08/2022 Document Reviewed: 05/08/2022 [employer] Patient Education 2022 [employer]. 07/24/2023 09:13:45 Thrombocytopenia Thrombocytopenia Thrombocytopenia is a [...] Follow these instructions at home: Medicines Take csak-ped-apqehkt and prescription medicines only as told by [...] provider. Document Revised: 02/06/2022 Document Reviewed: 02/06/2022 [employer] Patient Education 2022 [employer]. [facility] 10-13-2023 Hospital Discharge instructions Patient Education 06/19/2023 13:28:07 Insect Bite, Adult, Vvpv-st-Twnt Insect Bite, Adult An insect bite can [...] of an anaphylactic reaction may include: Feeling public speaking professor the face (flushed). Your face may turn [...] a day. General instructions Apply or take jihc-fpd-oakscfn and prescription medicines only as told by [...] ?DEET. ?Picaridin. ?Oil of lemon eucalyptus (OLE). ?KO2685. Consider spraying your clothing with a pesticide [...] an anaphylactic reaction. Signs may include: ?Feeling public speaking professor the face. ?Itchy, red, swollen areas of [...] your local emergency services (911 in the .[place].). Do not drive yourself to the hospital. [...] provider. Document Revised: 05/26/2022 Document Reviewed: 05/26/2022 [employer] Patient Education 2022 [employer]. Follow Up Care 06/19/2023 12:16:43 With:Colby Link Address: [address] [facility] [place] [address]- Business (1) When:06/22/2023 12:39:51 Comments:Follow-up with your primary care provider in 3 to 5 days. If symptoms worsen, do not improve, or new symptoms arise please report back to emergency department for further evaluation. [facility]08-18-2023 Evaluation note* Encounter Date Diagnosis Assessment Notes [...] sooner should he deteriorate in any way [facility] IP Other 08-15-2023 History of Present illness Narrative* [...] well. Monie Hernandez RN documented in this [id number] History of Present illness Narrative* Gustabo Ritchie [...] 100 %. Gustabo Pittman documented in this [id number] Hospital Discharge instructions Patient Education 03/22/2023 21:57:13 [...] Follow these instructions at home: Medicines Take ijyx-fmh-npbhjqe and prescription medicines only as told by [...] such as antibiotic medicines or antihistamines. Take udsd-mxr-wprrqnf and prescription medicines only as told by [...] provider. Document Revised: 06/05/2022 Document Reviewed: 06/05/2022 [employer] Patient Education 2022 [employer]. Follow Up Care 03/22/2023 19:36:11 With:THEO BURKS Address:Unknown When:Within 3 Day(s) [facility]07-16-2023 Evaluation + Plan noteExtracted from: Title:ED Note Author:Martin Reese DO Date :03/22/23 Cellulitis (L03.90: Cellulit is, unspecified) Orders: ondansetron, 4 mg = 1 tab(s), Oral, q8hr, PRN Nausea/Vomiting, # 20 tab(s), Refills(s) 0, Pharmacy: [facility] #[id number], 170, cm, 03/22/23 20:14:00 EDT, Height/Length Dosing, [...] day(s), 28 tab(s), Refill(s) 0, [facility] #[id number], 170, cm, 03/22/23 20:14:00 EDT, Height/Length Dosing, [...] Charcoal 03/22/23 * Blood Culture Charcoal 03/22/23 [facility]06-30-2023 Telephone encounter Note* Telephone Encounter - Deborah Gutierrez CPhT - 03/06/2023 8:55 AM EDT A prior authorization has been started for Lidocaine 5% patch PA status can be found under the prescription order in the Medication Tab. History or status of the PA can also be found in Chart Review under Referral tab. [id number] Miscellaneous Notes* Telephone Encounter - Deborah Gutierrez CPhT - 03/06/2023 8:55 AM EDT A prior authorization has been started for Lidocaine 5% patch PA status can be found under the prescription order in the Medication Tab. History or status of the PA can also be found in Chart Review under Referral tab. documented in this [id number] Telephone encounter Note* Telephone Encounter - Nighat Mahmood APRN-CNP - 02/27/2023 5:05 PM EDT Pt had video visit scheduled. Link sent to him, but he never checked in. [employer] Work Phone: [phone] Miscellaneous Notes* Telephone Encounter - Nighat Mahmood [...] Recommendation: n/a Thank you documented in this [id number] Telephone encounter Note* Telephone Encounter - Jordana Stanton RN - 02/27/2023 2:55 PM EDT Called the patient Reminded him of his video visit this ThursdayMarch 03 with Lindsey Mahmood Pt concerned about his leg, he will send a picture to My Chart To his provider Concerned about his infection Notified Lindsey Mahmood [employer] Work Phone: 1(300) 615-110706-23-2023 Telephone encounter Note* Telephone Encounter - Tobi Bowen - 02/27/2023 2:36 PM EDT What is the need: call back Situation: Pt states that the doctors office called him stating that they were running behind but he never got a phone call. Please advise Background: Please contact and advise Assessment: Pt contact info is Phone numbers Recommendation: n/a Thank you [id number] Evaluation + Plan noteExtracted from: Title:ED Note Author:Omid PARKER, Xander Field te:02/18/23 Cellulitis of right leg (L03 .115: Cellulitis of right lower limb) Right leg pain (M79.604: Pain in right leg) Orders: clindamycin, 300 mg = 1 cap(s), Oral, q6hr, X 7 day(s), # 28 cap(s), Refills(s) 0, Pharmacy: [facility] #[id number], 170, cm, 02/18/23 7:51:00 EDT, Height/Length Dosing, [...] 15 cap(s), Refills(s) 0, Pharmacy: [facility] #[id number], 170, cm, 02/18/23 7:51:00 EDT, Height/Length Dosing, 77, kg, 02/18/23 7:51:00 EDT, Weight Dosing US LE Venous Duplex Right [facility]06-14-2023 Hospital Discharge instructions Patient Education 02/18/2023 09:31:38 RICE Therapy for Routine Care of Injuries, Xnpj-jg-Twnl RICE Therapy for Routine Care of Injuries [...] provider. Document Revised: 06/13/2021 Document Reviewed: 06/13/2021 [employer] Patient Education 2022 [employer]. 02/18/2023 09:31:38 Musculoskeletal Pain Musculoskeletal Pain Musculoskeletal [...] by mouth or applied to theskin. Take nkro-zwz-zddhbcz and prescription medicines only as told by [...] provider. Document Revised: 12/27/2020 Document Reviewed: 12/05/2020 [employer] Patient Education 2022 [employer]. 02/18/2023 09:31:38 Pain Without a Known Cause [...] Follow these instructions at home: Medicines Take icxq-hjl-oxlpkty and prescription medicines only as told by your health care provider. Ask your health care provider if the medicine prescribed to you: ?Requires you to avoid driving or using machinery. ?Can cause constipation. You may need to take these actions to prevent or treat constipation: ? Drink enough fluid to keep your urine pale yellow. ?Take imqk-ehb-vokgwht or prescription medicines. ?Eat foods that are [...] the National Suicide Prevention Lifeline at or 930. This is open 24 hours a day. Text the Crisis Text Line at 894940. Summary Pain can occur in any part [...] provider. Document Revised: 04/23/2022 Document Reviewed: 04/23/2022 [employer] Patient Education 2022 [employer]. 02/18/2023 09:31:38 Cellulitis, Adult, Rnqc-rj-Xcku Cellulitis, Adult Cellulitis is a skin infection. [...] Follow these instructions at home: Medicines Take lpsr-njz-iivsnyy and prescription medicines only as told by [...] provider. Document Revised: 06/05/2022 Document Reviewed: 06/05/2022 [employer] Patient Education 2022 [employer]. Follow Up Care 02/18/2023 07:42:07 With:THEO BURKS Address:Unknown When:02/21/2023 09:01:56 Comments:Follow-up with your primary care provider in 3 to 5 days. If symptoms worsen, do not improve, or new symptoms arise please report back to emergency department for further evaluation. [facility]05-16-2023 Surgery Postoperative evaluation and management note* Post-Procedure Note - Brayan Babin MD - 01/20/2023 10:23 AM EDT POST-PROCEDURE NOTE Procedure: Transjugular liver biopsy with pressure measurements Pre-operative Diagnosis: Cirrhosis, diagnostic evaluation Post-operative Diagnosis: Portal hypertension, cirrhosis Attending: Erica Rock MD [employer] Operator: Leon Hernadez MD (attending) Brayan Babin [...] mcg; Route: Intravenous Rich Flores RN 01/20/2023 8:54 AM midazolam (VERSED) 2 [...] mg; Route: Intravenous Rich Flores RN 01/20/2023 9:34 AM midazolam (VERSED) 2 [...] of the procedure. Brayan Babin MD Radiology [employer] Work Phone: 1(209) 503-158305-16-2023 Miscellaneous Notes* Post-Procedure Note - Brayan Babin MD - 01/20/2023 10:23 AM EDT POST-PROCEDURE NOTE Procedure: Transjugular liver biopsy with pressure measurements Pre-operative Diagnosis: Cirrhosis, diagnostic evaluation Post-operative Diagnosis: Portal hypertension, cirrhosis Attending: Erica Rock MD [employer] Operator: Leon Hernadez MD (attending) Brayan Babin [...] mg; Route: Intravenous Rich Flores RN 01/20/2023 9:34 AM midazolam (VERSED) 2 [...] B27 positive) 2003 Followed with Rheum at [facility] Open fracture of other and unspecified part [...] Directives (Living will, health care power of insurance defense attorney): none Patient Recent Code Status: Prior Code Status For This Procedure: Full Code Dorota Aj MD Radiology documented in this [id number] Surgery Preoperative evaluation and management note* Pre-Procedure [...] B27 positive) 2003 Followed with Rheum at [facility] Open fracture of other and unspecified part [...] Directives (Living will, health care power of insurance defense attorney): none Patient Recent Code Status: Prior Code Status For This Procedure: Full Code Dorota Aj MD Radiology [employer] Work Phone: 1(586) 928-532105-08-2023 History of Present illness Narrative* Meka Lucas RN - 01/12/2023 11:11 AM EDT Labs drawn peripherally from right forearm. documented in this [id number] History of Present illness Narrative* Gustabo Ritchie [...] 3.2 oz (79 kg), SpO2 100 %. Gustabocarlos eduardo Pittman documented in this [id number] History of Present illness Narrative* April Jewell [...] Gastroenterology Fellow Division of Gastroenterology & Hepatology [facility] 01/12/23, 9:01 AM Associated attestation - Haley [...] Gary MD Division of Gastroenterology & Hepatology [facility] documented in this [id number] Instructions* Patient Instructions* Dejuan Lechuga MD - 12/16/2022 10:23 AM EDT [facility] [phone] [address] [address] Lab tests can be done at a scheduled visit, or by appointment. [facility] [phone] [place] [address] Park in the [facility] [place] [facility] ([facility]) Under the [facility]. Pathology is located in the Special[facility] [place] of the [facility] [place] on the 2nd floor.Please fill out the paper form at the front maker lockstitch then have a seat in the Outpatient Blood Draw Lab (Pathology) waiting area. Hours Thursday 07:00 AM - 05:30 PM Thursday 07:00 AM - 05:30 PM Thursday 07:00 AM - 05:30 PM 07:00 AM - 05:30 PM Thursday 07:00 AM - 05:[address] [facility] [phone] [place] [address] Follow the overhead sign to [place]: Radiology/X-ray & Lab (right arrow). Check in for testing at the Radiology & Lab Tier Truck Driver window. Hours Thursday 10:00 AM - 02:00 PM Thursday 08:00 AM - 07:30 PM Thursday 08:00 AM - 07:30 PM Thursday 08:00 AM - 07:30 PM 08:00 AM - 07:30 PM Thursday 08:00 AM - 07:30 PM Thursday 08:00 AM - 04:00 PM [facility] [phone] [place] [address] [place] at the front maker lockstitch and you will be directed to the waiting area. Laboratory staff will takeyou back to the laboratory. Hours Thursday 10:00 AM - 02:00 PM Thursday 07:30 AM - 07:30 PM Thursday 07:30 AM - 07:30 PM Thursday 07:30 AM - 07:30 PM 07:30 AM - 07:30 PM Thursday 07:15 AM - 07:45 PM Thursday 08:00 AM - 04:00 PM [facility] [phone] [place] [address] Enter through the front door and continue towards the back of the building. The laboratory is located on the right side. Follow the sign to Express Care / Lab Check-In . Hours Hany 10:00 AM - 02:00 PM Thursday 07:30 AM - 07:30 PM Thursday 07:30 AM - 07:30 PM Thursday 07:30 AM - 07:30 PM 07:30 AM - 07:30 PM Thursday 07:30 AM - 07:30 PM Thursday 08:00 AM - 04:00 PM [facility] [phone] [place], [place] [id number] The [facility] is located on the first [...] PM Thursday 07:30 AM - 05:00 PM [facility] [phone] [place] [address] The [facility] is located on the first floor, room A1-1047. Enter through the Emergency doors and follow the signs to Medical Offices , making a right turn. [place] at the Registration 1A desk at the end of the hallway, then proceed to the Laboratory on the right. Hours Thursday 07:30 AM - 05:00 PM Thursday 07:30 AM - 05:00 PM Thursday 07:30 AM - 05:00 PM 07:30 AM - 05:00 PM Thursday 07:30 AM - 05:00 PM [facility] [phone] [place], [place] [id number] The [facility] is located on the first [...] AM - 05:00 PM documented in this [id number] History of Present illness Narrative* Dejuan Lechuga [...] no previous surgical history on file. Diagnostics: [facility] laboratory/diagnostics reviewed and Outside laboratory/diagnostics reviewed Review [...] identified by name and date of . Alejabrandy Rolon documented in this [id number] History of Present illness Narrative* Theo Burks MD - 12/15/2022 4:20 PM EDT [facility] Telemedicine Visit CC: Chief Complaint Patient presents with Fall HPI: Patient is a 37 year old cordero with a history of cirrhosis , autoimmune hemolytic anemia who presentsfor the below. 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 OBJECTIVE: Sounds ewll, no acute distress Breathing comfrotably on room air ASSESSMENT AND PLAN: 1. Rib pain Orders & Meds Signed During This Encounter X-ray Ribs Left Unilateral (Routine) lidocaine (LIDODERM) 5 % patch Documentation: Mode: Telephone Patient Patient Work Phone: Patient Cell Preferred phone: [phone] Consent: I confirmed patient understanding of the [...] Burks MD Family Medicine documented in this [id number] Telephone encounter Note* Telephone Encounter - Aleja Rolon - 12/15/2022 9:14 AM EDT Called patient and made appointment with tomorrow [id number] Miscellaneous Notes* Telephone Encounter - Aleja Rolon - 12/15/2022 9:14 AM EDT Called patient and made appointment with tomorrow documented in this [id number] History of Present illness Narrative* Marcello Ibanez [...] Gastroenterology Fellow Division of Gastroenterology & Hepatology [facility] 10/27/22, 10:43 AM * Eze Schilling - 10/27/2022 9:49 AM EST Patient was identified by name and date of . Eze SchillingPatient at risk for falls:No Falls Risk protocol implemented: No documented in this [id number] History of Present illness Narrative* Haley Gary [...] Gastroenterology Fellow Division of Gastroenterology & Hepatology [facility] 10/27/22, 10:43 AM Attending addendum: Suspect ETOH [...] Gary MD Division of Gastroenterology & Hepatology [facility] * Eze Schilling - 10/27/2022 9:49 AM EST Patient was identified by name and date of . Eze SchillingPatient at risk for falls:No Falls Risk protocol implemented: No documented in this [id number] History of Present illness Narrative* Halye Gary MD - 10/27/2022 10:42 AM EST [...] Gastroenterology Fellow Division of Gastroenterology & Hepatology [facility] 10/27/22, 10:43 AM Attending addendum: Suspect ETOH [...] Gary MD Division of Gastroenterology & Hepatology [facility] * Eze Schilling - 10/27/2022 9:49 AM EST Patient was identified by name and date of . Eze SchillingPatient at risk for falls:No Falls Risk protocol implemented: No documented in this [id number] Telephone encounter Note* Telephone Encounter - Tanika [...] and will need rescheduled. Tanika Arias RN [facility] Work Phone: 1(633) 667-822501-14-2023 Miscellaneous Notes* Telephone Encounter - Tanika Arias [...] rescheduled. Tanika Arias RN documented in this [id number] History of Present illness Narrative* Theo Burks MD - 08/29/2022 9:20 AM EST [facility] Telemedicine Visit CC: Chief Complaint Patient presents [...] surgical history personally reviewed and updated in [employer]. OBJECTIVE: There were no vitals taken for this visit. Gen: Sounds well, no acute distress Resp: breathing comfortably ASSESSMENT AND PLAN: 1. Cellulitis, unspecified cellulitis site 2. Muscle soreness Orders & Meds Signed During This Encounter Creatine Kinase Documentation: Mode: Telephone Patient Patient Work Phone: Patient Cell Preferred phone: [phone] Consent: I confirmed patient understanding of the [...] Burks MD Family Medicine documented in this [id number] Instructions* Patient Instructions* Theo Burks MD - 08/25/2022 2:16 PM EST Continue antibiotics for another 7 days Topical antibiotic ointment for left foot Follow up on Thursday Refilled zofran (anti-nausea medication) documented in this [id number] History of Present illness Narrative* Theo Burks MD - 08/25/2022 1:31 PM EST Images from the original note were not included. [facility] Family Medicine Office Visit CC: Chief Complaint [...] surgical history personally reviewed and updated in [facility]. OBJECTIVE: BP 132/65 (BP Location: left arm, [...] Burks MD Family Medicine documented in this [id number] History of Present illness Narrative* Abbey Alvarez [...] hepatology clinic for EtOH cirrhosis. Admitted to [facility] ICU for acute alcoholic hepatitis (MDF 43) [...] B27 positive) 2003 Followed with Rheum at [facility] Open fracture of other and unspecified part [...] Gastroenterology Fellow Division of Gastroenterology & Hepatology [facility] 08/25/22, 10:44 AM * RositaMaura guzman - 08/25/2022 10:40 AM EST Patient was identified by name and date of . Maura Hilton Patient at risk for falls:No Falls Risk protocol implemented: No documented in this [id number] History of Present illness Narrative* Abbey Alvarez [...] hepatology clinic for EtOH cirrhosis. Admitted to [facility] ICU for acute alcoholic hepatitis (MDF 43) [...] B27 positive) 2003 Followed with Rheum at [facility] Open fracture of other and unspecified part [...] Gastroenterology Fellow Division of Gastroenterology & Hepatology [facility] 08/25/22, 10:44 AM * Maura Canela - 08/25/2022 10:40 AM EST Patient was identified by name and date of . Maura Canela Patient at risk for falls:No Falls Risk protocol implemented: No documented in this [id number] History of Present illness Narrative* Abbey Alvarez [...] hepatology clinic for EtOH cirrhosis. Admitted to [facility] ICU for acute alcoholic hepatitis (MDF 43) [...] B27 positive) 2003 Followed with Rheum at [facility] Open fracture of other and unspecified part [...] Gastroenterology Fellow Division of Gastroenterology & Hepatology [facility] 08/25/22, 10:44 AM Associated attestation - Haley [...] Gary MD Division of Gastroenterology & Hepatology [facility] * Maura Canela - 08/25/2022 10:40 AM EST Patient was identified by name and date of . Maura Canela Patient at risk for falls:No Falls Risk protocol implemented: No documented in this [id number] Note* Addendum Note - Tanvir Black MD - 08/21/2022 8:52 PM ESTAddended by: TANVIR BLACK on: 08/21/2022 08:52 PM Modules accepted: Orders [id number] Miscellaneous Notes* Addendum Note - Tanvir Black MD - 08/21/2022 8:52 PM ESTAddended by: TANVIR BLACK on: 08/21/2022 08:52 PM Modules accepted: Orders documented in this [id number] History of Present illness Narrative* Tanvir Black MD - 08/16/2022 11:07 AM EST Images from the original note were not included. Reviewed urine C&S. Urine growing klebsiella pneumoniae, with intermediate sensitivity to Macrobid. Culture Positive Culture Report Abnormal >100,000 CFU/ml Klebsiella pneumoniae Resulting Agency: [facility] Susceptibility Klebsiella pneumoniae BHAVIN [...] aware Phone numbers Preferred Tanvir Black MD [facility] [phone] Hematology/Oncology 08/16/2022 . documented in this [id number] Hospital Discharge instructions* Discharge Instructions* Dante French MD - 08/15/2022 3:08 PM EST EMERGENCY DEPARTMENT FOLLOW-UP: Please see your Primary Care Physician at next available appointment for follow up. Please call today or tomorrow to make an appointment. Residents of [facility] may apply for discounts available only to residents of this [facility] by contacting the Eligibility Call Center at [phone]. If you do not have a primary physician please call [phone] for guidance on finding a [facility] provider. PLEASE NOTE: If you are followed [...] during this visit: None documented in this [id number] History of Present illness Narrative* Nenita Franco [...] B27 positive) 2003 Followed with Rheum at [facility] Open fracture of other and unspecified part [...] of . Katie Paniagua documented in this [id number] History of Present illness Narrative* Tanvir Black MD - 08/14/2022 3:53 PM EST Images from the original note were not included. Hematology & Oncology Clinic Note Reason for Consult: Hemolytic anemia Alcoholic cirrhosis Thrombocytopenia Long-term steroid use Referring Provider: fAua Umanzor MD Chief Complaint Patient presents with AIHA right leg swelling right leg erythema History of Present Illness Will Ramo is a 36 year old [...] B27 positive) 2003 Followed with Rheum at [facility] Open fracture of other and unspecified part [...] Time Provider Department Center 08/19/2022 8:30 AM [facility] 2 [facility] 08/19/2022 1:45 PM [facility] 08/28/2022 10:30 AM Saskia Madison APRN-[facility] 09/19/2022 11:00 AM Saskia Madison APRN-CNP [facility] 11/13/2022 11:30 AM [facility]13/2022 12:00 PM ONC NURSE [facility] Tanvir Black MD Hematology/Oncology 08/14/22 4:09 PM * Jojo Garcia - 08/14/2022 11:52 AM EST .Patient was identified by name and date of . Jojo Garcia .Patient at risk for falls:No Falls Risk protocol implemented: No documented in this [id number] History of Present illness Narrative* Emily Dunn, RN - 08/14/2022 2:08 PM EST During this visit the vaccine(s) was: Administered Obtained informed verbal consent from patient/parent/patient sales representative [employer] for immunization(s) as ordered, questionnaire completed and VIS educational handouts reviewed with patient/parent/patient sales representative [employer] who denies contraindications and verbalizes understanding of indication, potential side effect and actions to be taken if side effects occur. Double identification of patient completed with patient/parent/patient sales representative [employer] using name and prior to administration, and [...] B27 positive) 2003 Followed with Rheum at [facility] Open fracture of other and unspecified part [...] and/or coordination of care. Sincerely, KONRAD Quevedo [facility] Division of Gastroenterology & Hepatology 08/14/22 1:54 PM GI clinic documented in this [id number] History of Present illness Narrative* Emily Dunn RN - 08/14/2022 2:08 PM EST During this visit the vaccine(s) was: Administered Obtained informed verbal consent from patient/parent/patient sales representative [employer] for immunization(s) as ordered, questionnaire completed and VIS educational handouts reviewed with patient/parent/patient sales representative raw fibers who denies contraindications and verbalizes understanding of indication, potential side effect and actions to be taken if side effects occur. Double identification of patient completed with patient/parent/patient sales representative raw fibers using name and prior to administration, and [...] B27 positive) 2003 Followed with Rheum at [facility] Open fracture of other and unspecified part [...] and/or coordination of care. Sincerely, KONRAD Quevedo [facility] Division of Gastroenterology & Hepatology 08/15/22 8:19 AM GI clinic documented in this [id number] History of Present illness Narrative* Emily Dunn RN - 08/14/2022 2:08 PM EST During this visit the vaccine(s) was: Administered Obtained informed verbal consent from patient/parent/patient sales representative raw fibers for immunization(s) as ordered, questionnaire completed and VIS educational handouts reviewed with patient/parent/patient sales representative raw fibers who denies contraindications and verbalizes understanding of indication, potential side effect and actions to be taken if side effects occur. Double identification of patient completed with patient/parent/patient sales representative raw fibers using name and prior to administration, and patient tolerated immunization(s) administration without incident. * Maura Canela - 08/14/2022 1:08 PM EST Patient was identified by name and date of . Maura WilhelmoPatient at risk for falls:No Falls Risk protocol implemented: No * Saskia Madison APRN-RADIOCOMMUNICATIONS TECHNICIAN - 08/14/2022 1:00 PM EST Images from [...] B27 positive) 2003 Followed with Rheum at [facility] Open fracture of other and unspecified part [...] likely 2/2 hemolytic anemia) -discuss with transplant truck service technician, Dr. Gary and arrange for f/u in [...] and/or coordination of care. Sincerely, KONRAD Quevedo [facility] Division of Gastroenterology & Hepatology 08/15/22 8:19 AM GI clinic documented in this [id number] History of Present illness Narrative* Jasmyne Grimaldo [...] clinic. Jasmyne Grimaldo RN documented in this [id number] Instructions* Patient Instructions* Emily Dunn RN - [...] these numbers to schedule your Upper Endoscopy. [facility] [address] [place], [place] [address] West Entrance Thursday-Thursday 8A-4P [facility] [address], [place] [id number] Thursday-Thursday 8A-4P [facility]. [address] [place], [place] [id number] Thursday-Thursday 8A-4P Centralized GI Procedure scheduling: UPPER [...] hours, please call to speak to the [facility] nurse interpersonal communications professor. If you need to cancel this appointment, please call , at least 48 hours before your appointment time. For additional health or procedure preparation information call the [employer] line at . The [employer] line is open 24 hours a day including weekends and holidays. PLEASE BRING IN YOUR INSURANCE CARD AND MEDICATIONS OR LIST OF CURRENT MEDICATIONS. PLEASE LEAVE JEWELRY AT HOME AND DO NOT WEAR HEAVY FRAGRANCE OR NAIL UKRAINIAN WE MAKE EVERY ATTEMPT TO MAINTAIN OUR [...] any problems or questions, please call the [facility] line at [phone]. documented in this [id number] Instructions* Patient Instructions* Emily Dunn RN - [...] these numbers to schedule your Upper Endoscopy. [facility] [address] [id number] [facility] Thursday-Thursday 8A-4P [facility] [address], [place] [phone] Thursday-Thursday 8A-4P [facility]. [address] [place], [place] [id number] Thursday-Thursday 8A-4P Centralized GI Procedure scheduling: UPPER [...] hours, please call to speak to the [facility] nurse interpersonal communications professor. If you need to cancel this appointment, please call , at least 48 hours before your appointment time. For additional health or procedure preparation information call the [employer] line at . The [employer] line is open 24 hours a day including weekends and holidays. PLEASE BRING IN YOUR INSURANCE CARD AND MEDICATIONS OR LIST OF CURRENT MEDICATIONS. PLEASE LEAVE JEWELRY AT HOME AND DO NOT WEAR HEAVY FRAGRANCE OR NAIL UKRAINIAN WE MAKE EVERY ATTEMPT TO MAINTAIN OUR [...] any problems or questions, please call the [employer] line at [phone]. documented in this [id number] History of Present illness Narrative* Tanvir Black [...] B27 positive) 2003 Followed with Rheum at [facility] Open fracture of other and unspecified part [...] Center 08/14/2022 11:30 AM Tanvir Black MD [facility] 08/14/2022 12:00 PM ONC NURSE [facility] 08/14/2022 1:00 PM Saskia Madison APRN-[facility] Tanvir Black MD Hematology/Oncology 05/06/22 4:11 [...] 100 %. Sally Chavez documented in this [id number] History of Present illness Narrative* Leslie Canela [...] results. Leslie Canela RN documented in this [id number] History of Present illness Narrative* Rosita Le RN - 03/13/2022 12:29 PM EDT Patient was identified by name and date of . 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 Blood obtained via venipuncture from RAC [id number] 3/4in butterfly needle. Blood specimen sent to lab. Pt tolerated procedure well. Pt verbalized follow up instructions and discharged home in stable condition. Rosita Le RN documented in this [id number] History of Present illness Narrative* Tanvir Black [...] B27 positive) 2003 Followed with Rheum at [facility] Open fracture of other and unspecified part [...] to oncologist closer to his home in [facility]. Patientto call back with name of boat loader helper and fax number.will keep care here with [...] AM MAIN CARD TEST-[address] [facility] 05/06/2022 10:30 AM [facility] 11:00 AM ONC NURSE [facility] Tanvir Black MD Hematology/Oncology 03/13/22 5:20 PM * Jojo Garcia - 03/13/2022 11:41 AM EDT .Patient was identified by name and date of . Jojo Garcia .Patient at risk for falls:Yes Falls Risk protocol implemented: No documented in this [id number] Hospital Discharge instructions Patient Education 02/17/2022 16:25:10 [...] care provider. Do not drink alcohol. Take hpoz-fpf-nioqzqh and prescription medicines only as told by [...] 08/24/2006 Document Revised: 05/26/2019 Document Reviewed: 05/26/2019 [employer] Patient Education 2020 [employer] 02/17/2022 16:25:10 Cellulitis, Adult Cellulitis, Adult Cellulitis [...] Follow these instructions at home: Medicines Take ijdw-mzw-mblozuh and prescription medicines only as told by [...] such as antibiotic medicines or antihistamines. Take lhgp-tcs-feigpiz and prescription medicines only as told by [...] 06/03/2006 Document Revised: 01/13/2019 Document Reviewed: 01/13/2019 [employer] Patient Education 2020 [employer]. 02/17/2022 16:25:10 Hypokalemia Hypokalemia Hypokalemia means that [...] hospital. Follow these instructions at home: Take onhx-gut-fqwokjj and prescription medicines only as told by [...] cantaloupe, kiwi, oranges, tomatoes, asparagus, and potatoes. ?[place] juice. ?Tomato juice. ?Red meats. ?Yogurt. Keep [...] 08/24/2006 Document Revised: 04/06/2019 Document Reviewed: 04/06/2019 [employer] Patient Education 2020 [employer]. 02/17/2022 16:25:10 Peripheral Edema Peripheral Edema Peripheral [...] by your health care provider. Medicines Take cikz-zwh-kgxkeya and prescription medicines only as told by [...] 10/01/2005 Document Revised: 05/18/2019 Document Reviewed: 05/18/2019 [employer] Patient Education 2020 [employer]. Follow Up Care 02/17/2022 12:28:34 With:Milagros Barakat Address:Unknown When:02/20/2022 15:52:54 Comments:Return to the emergency room if your pain gets worse, fever, swelling gets worse or any new symptoms With:Colby Link Address: [facility] [address], [facility] [address] [place] [address]- Business (1) When:Within 3 Day(s) [facility]06-13-2022 Evaluation + Plan noteExtracted from: Title:ED Note Author:Christi Luo M.D. te:02/17/22 1. Pedal edema (R60.0: Local ized edema) 2. Cellulitis of scrotum (N49.2: Inflammatory disorders of scrotum) 3. Thrombocytopenia (D69.6: Thrombocytopenia, unspecified) 4. Hypokalemia (E87.6: Hypokalemia) Orders: clindamycin, 300 mg = 2 cap(s), Oral, QID, # 56 cap(s), Refills(s) 0, Pharmacy: [facility], 170.2, cm, 02/17/22 12:34:00 EDT, [...] Charcoal 02/17/22 * Blood Culture Charcoal 02/17/22 [facility]06-07-2022 Telephone encounter Note* Telephone Encounter - Kulwinder Dozier, AbhijeetD - 02/11/2022 1:58 PM EDT Chemotherapy Education [...] Kulwinder Dozier PharmD, PharmD. Oncology Specialty Pharmacist [id number] Date: 02/11/22 [id number] Miscellaneous Notes* Telephone Encounter - Kulwinder Dozier [...] Kulwinder Dozier PharmD, PharmD. Oncology Specialty Pharmacist [id number] Date: 02/11/22 * Telephone Encounter - Kulwinder Dozier PharmD - 02/11/2022 12:39 PM EDT Images from the original note were not included. [facility] Oncology Specialty Pharmacy Referral [facility] received a prescription for MMF (Cellcept) for this patient on 02/11/2022. [facility] has been contacted to initiate a Prior Authorization for this medication. This is an immunomodulatory agent Patient Information: Will Ralph is a 36 year old male [id number] [facility] [id number] Insurance on file: [employer] ID: [id number] BIN: [id number] PCN: -- Group: [id number] Specialty Medication Medication and dosing: mycophenolate (CELLCEPT) 500 MG tablet- Take 2 tablets by mouth 2 times daily. 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 [...] pharmacist once medication is approved. Questions for [facility] may be directed to [phone] option 3. Thank you for the referral, Kulwinder Dozier PharmD Oncology Specialty Pharmacist [phone] documented in this [id number] Telephone encounter Note* Telephone Encounter - Kulwinder Dozier PharmD - 02/11/2022 12:39 PM EDT Images from the original note were not included. [facility] Oncology Specialty Pharmacy Referral [facility] received a prescription for MMF (Cellcept) for this patient on 02/11/2022. [facility] has been contacted to initiate a Prior Authorization for this medication. This is an immunomodulatory agent Patient Information: Will Ralph is a 36 year old male [id number] [facility] [address] Insurance on file: [employer] COMMERCIAL ID: [id number] BIN: [id number] PCN: -- Group: [id number] Specialty Medication Medication and dosing: mycophenolate (CELLCEPT) 500 MG tablet- Take 2 tablets by mouth 2 times daily. 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 [...] pharmacist once medication is approved. Questions for [facility] may be directed to [phone] option 3. Thank you for the referral, Kulwinder Dozier PharmD Oncology Specialty Pharmacist [phone] History of Present illness Narrative* Cyn Hopper RN - 02/11/2022 11:45 AM EDT Patient was identified by name and date of . Cyn Hopper RN Patient at risk for falls:No Falls Risk protocol implemented: No Hemolytic anemia due to warm antibody (HCC) [350123] Pt arrived to clinic for MDVS and labs. Blood obtained via venipuncture from RAC using 23G 3/4in butterfly needle. Blood specimen sent to lab. Pt tolerated procedure well, dressing applied. AVS provided and reviewed. Pt verbalized follow up instructions and discharged home in stable condition. Cyn Hopper RN documented in this [id number] Miscellaneous Notes* Telephone Encounter - Liseth Santana [...] so could not leave a voicemail. No MH PCP listed.If patient calls to check on the status of this request, he needs to discuss alternative highlighted above with his PCP.. To request an appeal: 1. Provide clinical reasons this medication is needed for the patient 2. Route this request to P [id number] (Pharmacy Prior Authorization Pool) Patient advised to follow up with provider's office if they have any further questions or if no answer after 3 business days. Providers office is to contact patient to advise of medication changes/next steps documented in this [id number] Miscellaneous Notes* Care Plan Note - Rosa [...] RN Outcome: Completed 01/17/2022 1654 by Rosa eMnsah RN Outcome: Adequate for Discharge 01/17/2022 1626 [...] RNF BARRIERS TO PLAN OF CARE: None TWENTY ONE DEALER IRENA Callahan RN DAY SHIFT RN Alvaro Maher [...] was yellow x 1 day. While at [facility], patient was HDS, however noted with significant bru ising and edema of LUE. Reportedly, trauma surgery was consulted at [facility] and there was initially concern for compartment syndrome and fasciotomy was considered, but ultimately did not occur at the time. The trauma attending Dr. Du recommended orthopedic consultation upon arrival to the [facility]. While at [facility] labs significant for indirect hyperbilirubinemia, and acute macrocytic anemia 6.9 requiring 1u pRBC and [address] Abd/Pelvis W/ Contrast showed liver cirrhosis and steatosis without CBD dilation. Received morphine, ceftriaxone, protonix, thiamine. Started on NS for rhabdo. Patient transferred to [facility] for tertiary center care. While in the [facility], Ortho following - request MR Nadia [...] (PRN) Note: Family updated ? Transfer to F soon- weaning precidex off Sw/case checker for dc concerns Problem: Safety: Goal: Free [...] OF CARE: BARRIERS TO PLAN OF CARE: TWENTY ONE DEALER RN: Bahrat Callahan DAY SHIFT RN: Meli Keane * 1:1 Interaction - Keo Gaona MD - 01/14/2022 7:42 AM EDT Images from the original note were not included. SECLUSION/RESTRAINTS PROVIDER ATBO-KX-BJQX EVALUATION NOTE Will Ralph was evaluated on [...] home-going needs (PRN) Note: Family updates Sw/case checker as needed Problem: Safety: Goal: Free from [...] none BARRIERS TO PLAN OF CARE: none TWENTY ONE DEALER RN Jessee Unger RN DAY SHIFT RN Quinn Graham RN * 1:1 Interaction - Hannah Leggett MD - 01/13/2022 4:30 AM EDT Images from the original note were not included. SECLUSION/RESTRAINTS PROVIDER MGTC-GH-YHBQ EVALUATION NOTE Will Ralph was evaluated on [...] None BARRIERS TO PLAN OF CARE: None TWENTY ONE DEALER RN : Elsa Jenkins RN DAY SHIFT [...] original note were not included. SECLUSION/RESTRAINTS PROVIDER UFRG-UA-FNWY EVALUATION NOTE Will Ralph was evaluated on [...] none BARRIERS TO PLAN OF CARE: none TWENTY ONE DEALER IRENA Canales DAY SHIFT IRENA Childers * 1:1 Interaction - Hannah Leggett MD - 01/11/2022 1:39 AM EDT Images from the original note were not included. SECLUSION/RESTRAINTS PROVIDER TPYD-QY-YVBX EVALUATION NOTE Will Ralph was evaluated on [...] remain still for MRI. Dr. Curry aware. TWENTY ONE DEALER RN Quinn Jameson DAY SHIFT IRENA Childers * 1:1 Interaction - Abhinav De La Vega DO - 01/10/2022 2:31 PM EDT SECLUSION/RESTRAINTS PROVIDER HMTB-JL-PFJS EVALUATION NOTE Will Ralph was evaluated on [...] original note were not included. SECLUSION/RESTRAINTS PROVIDER RSEJ-CI-MEEH EVALUATION NOTE Will Ralph was evaluated on [...] were discussed with the patient and/or legal sales representative raw fibers. The risks, benefits and alternatives were reviewed. Questions regarding blood transfusions were answered. The patient /or the patient s legal sales representative raw fibers agree with the plan for transfusion of [...] - 01/09/2022 9:02 AM EDT SECLUSION/RESTRAINTS PROVIDER ZZMQ-UP-PDZP EVALUATION NOTE Will Ralph was evaluated on [...] original note were not included. SECLUSION/RESTRAINTS PROVIDER PUOS-TC-KZCG EVALUATION NOTE Will Ralph was evaluated on [...] - 01/08/2022 10:46 PM EDT SECLUSION/RESTRAINTS PROVIDER NLDG-SW-CPTA EVALUATION NOTE Will Ralph was evaluated on [...] of harm to self documented in this [id number] Hospital course Narrative* Afua Umanzor MD - 01/17/2022 3:31 PM EDT Images from the original note were not included. DISCHARGE SUMMARY [address] [address] Will Ralph Date of : 1985 36 [...] Referral Type: Service Level Authorization Referral Location: [facility] ORTHO HAND Number of Visits Requested: 3 Expiration Date: 01/17/23 HEMATOLOGY SERVICE REQUEST Referral Priority: Routine Referral Type: Service Level Authorization Referral Location: [facility] HEMATOLOGY Number of Visits Requested: 3 Expiration Date: 01/17/23 LIVER SERVICE REQUEST Referral Priority: Routine Referral Type: Service Level Authorization Referral Location: [facility] LIVER Number of Visits Requested: 3 Expiration Date: 01/17/23 Future Appointments Date Time Provider Department Center 01/20/2022 11:00 AM Abbey Alvarez MD Liver [facility] 01/23/2022 11:45 AM Ronen Welch MD [facility] ORTHO [facility] 02/11/2022 10:00 AM Tanvir Black MD [facility] Condition at Discharge Improved Activity [...] bilirubin may falsely lower creatinine 169 63 782 28 9837 6.4 2.6 2.10 11.1 Comment: Elevated bilirubin [...] followed by pain. He was seen at [facility] and transferred to ICU He [...] he will get assistance from rehab in [place] for alcohol abuse. On the day of discharge, patient was stable. Left arm swelling was improving. He has good peripheral pulses in the left arm. He is alert and oriented x3. CVS - systolic murmur, lungs - clear to auscultation, abdomen - soft, nontender, FAMILY ADVOCATE - alert, moving all extremities. Current Discharge [...] follow-up Afua umanzor MD documented in this [id number] History of Present illness Narrative* Kennedi Best [...] resources. Pt declines assistance. RAI Claudio, JOSH-S [phone] * Afua Umanzor MD - 01/16/2022 8:18 AM EDT Images from the original note were not included. GENERAL MEDICAL FLOOR DAILY PROGRESS NOTE Will Ralph [id number] 01/16/2022 Length of stay: 8 day(s) SUBJECTIVE: [...] ATTENDING NOTE LEON SANTANA MD - PIN [id number] I saw and evaluated the patient. I [...] 110 24.4 67 01/13/22 0252 2.05 01/12/22 165 7.8 1.73 6.6 19.5 [...] Director, Pulmonary, Critical Care and Sleep Medicine [facility] * Reanna Doyle [facility] - 01/15/2022 9:24 AM EDT Pharmacy [...] Orders (24h ago, onward) Start Ordered 01/15/22 0905 Full Liquid DIET References: System Diet Manual Question: Specify Diet Answer: Full Liquid 01/15/22 0904 The following criteria were reviewed at the [...] been updated per consult agreement. REANNA DOYLE [facility] Department of Pharmacy Services * Keo Gaona MD - 01/15/2022 7:51 AM EDT Images from the original note were not included. [facility] Medical Intensive Care Unit Critical Care Progress Note Will Ralph 36 year old 136.744758 lbs MRN/Room: [id number]/CP3-303/1 Length of stay: 7 day(s) Summary 36M [...] was yellow x 1 day. While at [facility], patient was HDS, however noted with significant bru ising and edema of LUE. Reportedly, trauma surgery was consulted at [facility] and there was initially concern for compartment syndrome and fasciotomy was considered, but ultimately did not occur at the time. The trauma attending Dr. Du recommended orthopedic consultation upon arrival to the [facility]. While at [facility] labs significant for indirect hyperbilirubinemia, and acute macrocytic anemia 6.9 requiring 1u pRBC and [address] Abd/Pelvis W/ Contrast showed liver cirrhosis and steatosis without CBD dilation. Received morphine, ceftriaxone, protonix, thiamine. Started on NS for rhabdo. Patient transferred to [facility] for tertiary center care. While in the [facility], Ortho following - request MR L [...] -- -- 85 15 95 % -- 05/10/22 2000 126/69 98.7 F (37.1 C) Oral [...] 15.0 1.0 01/12/221654 74.0 3 8.0 12.0 Basic Metabolic Panel [...] may falsely lower creatinine 182 65 104 01/14/22354 6.4 2.6 2.20 11.5 Comment: Elevated [...] 1.24; this indicates hypoproliferation. Imaging US ASCITES / IMPRESSION: No evidence of [...] improving with IV hydration Hyperbilirubinemia worsening since [facility]. DDx favors hemolysis - could be [...] No overt GIB. 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 MICU ATTENDING NOTE LEON SANTANA MD - PIN [id number] I saw and evaluated the patient. I [...] medical issues requiring critical care management include: FAMILY ADVOCATE FAILURE. HEPATIC FAILURE . Additional findings and [...] Director, Pulmonary, Critical Care and Sleep Medicine [facility] * Keo Gaona MD - 01/14/2022 7:42 AM EDT Images from the original note were not included. [facility] Medical Intensive Care Unit Critical Care Progress Note Will Ralph 36 year old 136.685 lbs MRN/Room: [id number]/CP3-303/1 Length of stay: 6 day(s) Summary 36M [...] was yellow x 1 day. While at [facility], patient was HDS, however noted with significant bru ising and edema of LUE. Reportedly, trauma surgery was consulted at [facility] and there was initially concern for compartment syndrome and fasciotomy was considered, but ultimately did not occur at the time. The trauma attending Dr. Du recommended orthopedic consultation upon arrival to the [facility]. While at [facility] labs significant for indirect hyperbilirubinemia, and acute macrocytic anemia 6.9 requiring 1u pRBC and [address] Abd/Pelvis W/ Contrast showed liver cirrhosis and steatosis without CBD dilation. Received morphine, ceftriaxone, protonix, thiamine. Started on NS for rhabdo. Patient transferred to [facility] for tertiary center care. While in the [facility], Ortho following - request MR Zuniga [...] 76 14 94 % Room air 01/13/22 1952 -- 97.9 F (36.6 C) Oral -- [...] improving with IV hydration Hyperbilirubinemia worsening since [facility]. 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 [facility] Intensive Care Unit Critical Care Progress Note Will Ralph 36 year old 131.176186 lbs MRN/Room: [id number]/CP3-303/1 Length of stay: 5 day(s) Summary 36M [...] was yellow x 1 day. While at [facility], patient was HDS, however noted with significant bru ising and edema of LUE. Reportedly, trauma surgery was consulted at [facility] and there was initially concern for compartment syndrome and fasciotomy was considered, but ultimately did not occur at the time. The trauma attending Dr. Du recommended orthopedic consultation upon arrival to the [facility] MICU. While at [facility] labs significant for indirect hyperbilirubinemia, and acute macrocytic anemia 6.9 requiring 1u pRBC and [address] Abd/Pelvis W/ Contrast showed liver cirrhosis and steatosis without CBD dilation. Received morphine, ceftriaxone, protonix, thiamine. Started on NS for rhabdo. Patient transferred to [facility] for tertiary center care. While in the [facility] MICU, Ortho following - request MR L [...] improving with IV hydration Hyperbilirubinemia worsening since Paulino-Mayes. 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 MICU ATTENDING NOTE LEON SANTANA MD - PIN [id number] I saw and evaluated the patient. I [...] management include: ACUTE BLOOD LOSS ANEMIA and FAMILY ADVOCATE FAILURE. HEPATIC FAILURE . Additional findings and [...] Director, Pulmonary, Critical Care and Sleep Medicine [facility] * Codi Thurman LSW - 01/13/2022 9:49 AM EDT ICU Note: SW continues to follow for positive screen for low risk suicide and abuse. SW spoke with bedside RN who reported pt alert but drowsy. SW to follow up with pt to attempt to address. Codi Thurman [facility] Care Coordination Department 10:59 AM Addendum: SW met with pt at bedside. Pt sleeping upon SW entering room. Pt restrained, with mits. SW did not awake to name being called several times. SW will follow up with pt as appropriate to address. Codi Thurman [facility] [place] Care Coordination Department * Elizabeth Unger [...] ATTENDING NOTE LEON SANTANA MD - PIN [id number] I saw and evaluated the patient. I [...] management include: ACUTE BLOOD LOSS ANEMIA and FAMILY ADVOCATE FAILURE, HEPATIC FAILURE. Additional findings and notation: [...] Director, Pulmonary, Critical Care and Sleep Medicine [facility] * Keo Gaona MD - 01/12/2022 8:32 AM EDT Images from the original note were not included. [facility] Medical Intensive Care Unit Critical Care Progress Note Will Ralph 36 year old 149.10183 lbs MRN/Room: [id number]/CP3-303/1 Length of stay: 4 day(s) Summary 36M [...] was yellow x 1 day. While at [facility], patient was HDS, however noted with significant bru ising and edema of LUE. Reportedly, trauma surgery was consulted at [facility] and there was initially concern for compartment syndrome and fasciotomy was considered, but ultimately did not occur at the time. The trauma attending Dr. Du recommended orthopedic consultation upon arrival to the [facility] MICU. While at [facility] labs significant for indirect hyperbilirubinemia, and acute macrocytic anemia 6.9 requiring 1u pRBC and [address] Abd/Pelvis W/ Contrast showed liver cirrhosis and steatosis without CBD dilation. Received morphine, ceftriaxone, protonix, thiamine. Started on NS for rhabdo. Patient transferred to [facility] for tertiary center care. 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 [facility] Medical Intensive Care Unit Critical Care Progress Note Will Ralph 36 year old 151.74783 lbs MRN/Room: [id number]/CP3-139/1 Length of stay: 3 day(s) Summary 36M [...] was yellow x 1 day. While at [facility], patient was HDS, however noted with significant bru ising and edema of LUE. Reportedly, trauma surgery was consulted at [facility] and there was initially concern for compartment syndrome and fasciotomy was considered, but ultimately did not occur at the time. The trauma attending Dr. Du recommended orthopedic consultation upon arrival to the [facility] MICU. While at [facility] labs significant for indirect hyperbilirubinemia, and acute macrocytic anemia 6.9 requiring 1u pRBC and [address] Abd/Pelvis W/ Contrast showed liver cirrhosis and steatosis without CBD dilation. Received morphine, ceftriaxone, protonix, thiamine. Started on NS for rhabdo. Patient transferred to [facility] for tertiary center care. While in the [facility] MICU, Ortho following - request MR Nadia [...] -- -- 95 18 100 % -- 01/10/221999 138/109 -- -- 102 14 99 % [...] Grossly icteric; may falsely decrease creatinine 8.6 05/06/22 0353 133 4.0 101 27 9 172 [...] No overt GIB. 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 I [...] Ca Mg PO4 01/11/22 0116 2.0 01/11/22 011 133 3.4 [...] 01/09/22 1722 64.8 19.4 13.7 1.5 0.7 01/09/22347 65.0 [...] Director, Pulmonary, Critical Care and Sleep Medicine [facility] * Candido Lerner MD - 01/10/2022 12:31 [...] and 1u FFP and was transfered to [facility] for further management. On (01/08) PM pt [...] Candido Lerner MD Hematology- Oncology PGY-V Pager [phone] Associated attestation - Rd Weaver MD - [...] with GI attending, Dr. Haley Gary MD ([id number]) and Ulysses Solomon MD. Primary team updated via [employer] secure chat. We will sign off but please don't hesitate to reach out with questions or concerns. Abbey Alvarez MD Gastroenterology Fellow Personal Pager [phone] GI Consult Pager (nights and weekends) [phone] * Francisco Marino MD - 01/10/2022 9:13 AM EDT MICU ATTENDING NOTE FRANCISCO MARINO MD - PIN [id number] I saw and evaluated the patient. I [...] ACUTE BLOOD LOSS ANEMIA, HEPATIC FAILURE, and FAMILY ADVOCATE FAILURE. Additional findings and notation: Will Ralph is a 36 year old male with PMH of EtOH dependence who presented with 2 days of L arm pain to [facility] ED. 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 Pulmonary, Critical Care and Sleep Medicine [facility] * Abhinav De La Vega DO - 01/10/2022 7:16 AM EDT Images from the original note were not included. [facility] Medical Intensive Care Unit Critical Care Progress Note Will Ralph 36 year old 150.82202 lbs MRN/Room: [id number]/CP3-139/1 Length of stay: 2 day(s) Summary 36M [...] was yellow x 1 day. While at [facility], patient was HDS, however noted with significant bru ising and edema of LUE. Reportedly, trauma surgery was consulted at [facility] and there was initially concern for compartment syndrome and fasciotomy was considered, but ultimately did not occur at the time. The trauma attending Dr. Du recommended orthopedic consultation upon arrival to the [facility]. While at [facility] labs significant for indirect hyperbilirubinemia, and acute macrocytic anemia 6.9 requiring 1u pRBC and [address] Abd/Pelvis W/ Contrast showed liver cirrhosis and steatosis without CBD dilation. Received morphine, ceftriaxone, protonix, thiamine. Started on NS for rhabdo. Patient transferred to [facility] for tertiary center care. 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 s/p 1u pRBC from [employer], did not increment appropriately - only 6.9 [...] (deescalation of antibiotics): Ceftriaxone Social- Dad Rich [phone] and mom Code Status: Full Code Dispo: MICU Plan is preliminary until discussed with attending Abhinav De La Vega DO PGY-2 [phone] (click to text page) * Bang Jameson [...] ATTENDING NOTE FRANCISCO MARINO MD - PIN [id number] I saw and evaluated the patient. I [...] ACUTE BLOOD LOSS ANEMIA, HEPATIC FAILURE, and FAMILY ADVOCATE FAILURE. Additional findings and notation: Will Ralph is a 36 year old male with PMH of EtOH dependence who presented with 2 days of L arm pain to [facility] ED. 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 Pulmonary, Critical Care and Sleep Medicine [facility] * Nasrin Smith RN - 01/09/2022 10:59 [...] No BARRIERS TO PLAN OF CARE: No TWENTY ONE DEALER IRENA Gomez DAY SHIFT IRENA Hernandez * Codi Thurman LSW - 01/09/2022 9:47 AM EDT Admission Screen Consult: SW aware of social concern per hip hop performers screen for positive screen for low risk suicide and abuse. Pt is currently confused, restrained and unable to participate in conversation at this time. SW will follow up with pt to address as appropriate. SARAH Kelley Care Coordination Department * Ivy Chua MD - 01/09/2022 7:34 AM EDT Images from the original note were not included. [facility] Medical Intensive Care Unit Critical Care Progress Note Will Ralph 36 year old 149.6925 lbs MRN/Room: [id number]/3-139/1 Length of stay: 1 day(s) Summary 36M [...] skin was yellow x 1 day. At [facility], pt was HDS. Noted with significant bruising and edema of LUE. Reportedly, trauma surgery was consulted at [facility] and there was initially concern for compartment syndrome and fasciotomy was considered, but ultimately did not occur at the time. The trauma attending Dr. Du recommended orthopedic consultation upon arrival to the [facility]U. Labs significantfor indirect hyperbilirubinemia, acute macrocytic anemia 6.9. CT abd/pel with contrast showed livercirrhosis and steatosis; no CBD dilation. Received morphine, ceftriaxone, protonix, thiamine. Received 1u pRBC and 1u FFP at [facility]. Started on NS for rhabdo. Transferred to [facility] for tertiary center care. Ortho following - [...] 3.8 1.84 6.7 19.0 103 23.3 52 01/09/228 1.94 01/08/22 1825 5.4 1.94 7.3 20.3 105 24.0 52 01/08/2218 1.78 01/08/22 0853 5.7 1.96 7.2 20.1 [...] may falsely lower creatinine 92 47 124 01/08/22852 6.4 2.9 2.40 11.1 Comment: Elevated bilirubin [...] for overt GIB -s/p 1u pRBC from [facility], did not increment appropriately - only [...] not reliable given recent pRBC infusion at [facility] - Large bore PIVs -transfuse Hb [...] (deescalation of antibiotics): ctx Social- dad Rich [phone] and mom Code Status: Full Code Dispo: MICU Staffed with attending guest services coordinator Dr. Marino. Ivy Chua MD Internal Medicine [...] n/a BARRIERS TO PLAN OF CARE: n/a TWENTY ONE DEALER RN DAY SHIFT RN Chao * Loreta Macedo - 01/08/2022 1:33 PM EDT [facility] Spiritual Care Services Services provided for: Patient and Family Services initiated by: Staff Mathematics Education Professor Reason for services: Initial visit Narrative: Mathematics Education Professor knocked and entered patient's room to introduce self and share availability of spiritual care. Patient was sitting up in bed, awake and alert, visiting with his parents. Patient was polite and appreciative of visit but stated he had no spiritual care needs at this time. Interventions: Introduction of service Outcome: Patient aware of marketing community liaison availability Plan of Care: Follow-up not anticipated Loreta Macedo MDiv Staff Mathematics Education Professor, (she/her/hers) Ext: [phone] Pager: [phone] documented in this [id number] Consult note* Keith Bolivar OT - 01/16/2022 [...] Dep Max Mod Min CG CS DS NE I Set-Up Cues Comment Feeding x Meal [...] With Patients permission ordered no equipment via [employer] Order. If any questions contact [facility] DME Provider at [phone]. 6 Clicks Daily Activity OT 01/16/2022 Help [...] Guard Assist/Supervision 4 - Non = Modified [place]/Independent ASSESSMENT: ASSESSMENT: Will Ralph is performing functional [...] NA = Not Assessed, I = Independent, NE = Modified Independent, Sup = Supervised, Set [...] Dep Max Mod Min CG CS DS NE I Comment Roll to right sidelying x [...] With Patients permission ordered no equipment via [employer] Order. If any questions contact [facility] DME Provider at [phone]. 6 Clicks Basic Mobility PT 01/16/2022 Difficulty [...] NA = Not Assessed, I = Independent, NE = Modified Independent, Sup = Supervised, Set [...] Dep Max Mod Min CG CS DS NE I Comment Rolling x Supine<>sit x Sitting trial x Transfer x Sit<>stand x Without an assistive device. Standing trial x x2 minutes in unsupported static standing. Ambulation x 400 feet without an assistive device. Pt demonstrated step-through gait pattern with improved steadiness with continued practice. Stairs x 12 stairs with unilateral rail. Pt negotiated stairs with a [id number] pattern. Education: Instructed pt in roles of [...] Guard Assist/Supervision 4 - Non = Modified Duc[place]/Independent Pt resting in recliner at end of [...] Clinical Specialist in Neurologic Physical Therapy Pager: [phone] AAROM = active assisted range of motion [...] bearing UE = upper extremity * Mehreen Raza Isobel, RD - 01/14/2022 1:06 PM EDT Images [...] % Nutrition Focused Physical Exam Muscle loss: Junction region: mild depression Clavicle region: visible but [...] 01/13 1440 ml Est needs: current wt 1475-3060 kcal/d 30-35 kcal/kg 95 g pro/d 1.5 [...] as mentation allows Mehreen Raza MS RD LD [facility] Pager [phone] () Dietitian interpersonal communications professor (7a-7p) pager: [phone] * Chioma Butler OT - 01/14/2022 12:23 PM EDT Associated [...] joint effusion. 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 Followed with Rheum at [facility] Open fracture of other and unspecified part [...] wrapped, (R) hand bruising and dorsal edema, bending machine set up operator, Pulse Oximeter, IV, Flexiseal, male External Catheter [...] Dep Max Mod Min CG CS DS NE I Set-Up Comment Feeding x x +[place]ak, [...] Dep Max Mod Min CG CS DS NE I Set-Up Comment Toilet Transfers x Anticipate [...] improves Cognition: Orientation: Oriented to person Place: [facility] Current Date: 01/16/85 Asked pt to state year: 2021 Follows Commands: one step commands, requires occasional repeat of directions and easily distracted Attention: difficulty with divided attention, easily distracted during task and difficulty with alternating attention Memory: Impaired - recalls incident 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 If any questions contact [facility] DME Provider at [phone]. 6 Clicks Daily Activity OT 01/14/2022 Help [...] Guard Assist/Supervision 4 - Non = Modified [place]/Independent ASSESSMENT: Recommend further therapy services in an [...] NA = Not Assessed, I = Independent, NE = Modified Independent, Sup = Supervised, Set [...] acute alcoholic hepatitis/Cirrhosis/Encp[ja;p[atju, suspected ETOH cirrhosis, indirect sjlmmxdgvzsciqs8usc, jaundice, elevated INR, thrombocytopenia, hyponatremia, rabdomyolysis Precautions: High falls sz Clear liquid diet Progressive mobility CIWA NWB LUE per ortho 5/4 note Procedures this admit: Ortho rec MRi R elbow but holding until stable US RUQ US 5/ IMPRESSION: 1. 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 If any questions contact [facility] DME Provider at [phone]. 6 Clicks Basic Mobility PT 01/14/2022 Difficulty [...] acute alcoholic hepatitis/Cirrhosis/Encp[ja;p[atju, suspected ETOH cirrhosis, indirect nkumhetdawcesha1zoq, jaundice, elevated INR, thrombocytopenia, hyponatremia, rabdomyolysis Pt [...] NA = Not Assessed, I = Independent, NE = Modified Independent, Sup = Supervised, Set [...] and 1u FFP and was transfered to [facility] ICU for further management. On (01/08) PM [...] B27 positive) 2003 Followed with Rheum at [facility] Open fracture of other and unspecified part [...] and 1u FFP and was transfered to [facility]- ICU for further management. On (01/08) PM [...] Candido Lerner MD Hematology- Oncology PGY-V Pager [phone] Associated attestation - Rd Weaver MD - [...] and copper levels Mehreen Raza MS RD [facility] Pager [phone] () Dietitian interpersonal communications professor (-7p) pager: [phone] * Robert Allen MD - 01/08/2022 5:01 [...] the entire UE, causing him present to [facility] ED. While in the ED, the pt was noticed to be jaundiced and was found to be in acute liver failure. He was transferred to [facility] MICU for escalation of care. Ortho was [...] Mcmullen DO and will be discussed with interpersonal communications professor ortho hand attending. Dr. Welch. Robert Allen MD HÉCTOR Orthopaedic Surgery, PGY 2 Pager [phone] After 5 pm and on weekends, please page the on-call resident ([phone]) with questions or concerns. 01/08/22 This consult was seen and staffed within 30 minutes of the initial consult. * Abbey Alvarez MD - 01/08/2022 9:22 AM EDT Associated Order(s): IP GASTROENTEROLOGY CONSULT Images from the original note were not included. Department of Gastroenterology and Hepatology Consult H&P Note GI Attending Physician: Dr. Ulysses Solomon MD Patient: Will Ramo Location: 3-139/1 Reason for Consult: GI bleed, hyperbilirubinemia HPI Will Ralph is a 36 year old male with history notable for EtOH use disorder, tobacco use disorder for whom gastroenterology was consulted for GI bleed and hyperbilirubinemia. Patient is admitted to MICU as a transfer from [facility] where he initially presented [...] multi vitamin, zinc, thiamine and folate supplementation. [facility] assessors for alcohol withdrawal - [...] continue to follow with you. Personal Pager [phone] GI Consult Pager (nights and weekends) [phone] Abbey Alvarez MD Gastroenterology Fellow Division of Gastroenterology & Hepatology [facility] 01/08/22 Associated attestation - Ulysses Solomon MD [...] varices. Ulysses Solomon MD documented in this [id number] Hospital Discharge instructions* Instructions* Rosa Mensah RN [...] is right for you. Copyright Copyright 2020 [employer]. and its affiliates and/or licensors. All rights [...] you to see other specialists, such as [facility] health doctor, psychiatrist, medical social worker, or alcohol counselor. Stay sober. Get involved [...] irritable. Where can I learn more? National [place] of Alcohol Abuse and Alcoholism http://www.niaaa.nih.gov/alcohol-health/tuwfyfda-nflacpo-zyicsnbiwpm/alcohol-use -disorders National Health Service https://www.nhs.uk/conditions/alcohol-misuse/ Substance Abuse [...] is right for you. Copyright Copyright 2020 [employer]. and its affiliates and/or licensors. All rights reserved. Patient Education Alcohol Use ? When Is Drinking a Problem? The Basics Written by the doctors and editors at [employer] How do I know if I am [...] See a counselor (such as a psychologist, medical social worker, or psychiatrist) Take medicines Take part in [...] process is complete. This topic retrieved from [employer] on: Apr 04, 2020. Topic 51617 Version 9.0 Release: 28.4.6 - C28.294 2019 [employer] and/or its affiliates. All rights reserved. figure [...] and your health. Available at: http://rethinkingdrinking.niaaa.nih.gov. Graphic 20232 Version 1828.0 Consumer Information Use and Disclaimer [...] that is right for you.The use of [employer] content is governed by the [employer] Terms of Use. 2020 [employer]. All rights reserved. Copyright 2020 [employer] and/or its affiliates. All rights reserved. Patient [...] weights; are a rock climber, skier, gymnast, timber mill worker, or major league baseball player; or do other sports What are the [...] playing sports. Where can I learn more? [employer] https://orthoinfo.aaos.org/en/diseases--conditions/ycbxrz-undnlv-mcld-at-the-elb ow Last Reviewed Date 2018-06-01 Consumer Information [...] is right for you. Copyright Copyright 2020 [employer]. and its affiliates and/or licensors. All rights [...] listed above. After business hours please call [facility] cat scanner operator at and ask for the orthopeadicresident interpersonal communications professor. For emergencies call [phone]. [facility] Upper Extremity and Hand Surgery MD Enrique Duffy MD Kyle Chepla, MD Andrea Gallup, STRUCTURAL WORKER-RADIOCOMMUNICATIONS TECHNICIAN Josiane Muhammad, MD Saroj Mojica, MD Ulysses Roper, [...] is right for you. Copyright Copyright 2020 [employer]. and its affiliates and/or licensors. All rights [...] is right for you. Copyright Copyright 2020 [employer]. and its affiliates and/or licensors. All rights reserved. Patient Education Autoimmune Hemolytic Anemia The Basics Written by the doctors and editors at [employer] What is autoimmune hemolytic anemia? -- Autoimmune [...] process is complete. This topic retrieved from [employer] on: Apr 04, 2020. Topic 57922 Version 9.0 Release: 28.4.6 - C28.294 2019 [employer]. and/or its affiliates. All rights reserved. Consumer [...] that is right for you.The use of [employer] content is governed by the [employer] Terms of Use. 2020 [employer]. All rights reserved. Copyright 2020 [employer] and/or its affiliates. All rights reserved. documented in this [id number] History and physical note* Francisco Marino MD - 01/08/2022 2:02 PM EDT MICU ATTENDING NOTE FRANCISCO MARINO MD - PIN [id number] I saw and evaluated the patient. I [...] 2 days of L arm pain to [facility] ED. 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 Pulmonary, Critical Care and Sleep Medicine [facility] * Ivy Chua MD - 01/08/2022 8:[address] [facility] Medical Intensive Care Unit History and Physical Examination Will Ralph 36 year old 0 lbs MRN/Room: [id number] Admit Date: 01/08/2022 : 1985 PCP Contact: [...] and examined upon arrival to MICU at [facility]. Pt states he was working on the [...] of aleve every morning for pain. At [facility], presenting VS were 36.3C/HR 105/RR18/BP 145/68/ SpO2 98% on room air. Ht 170.18cm,wt 75kg. received morphine, ceftriaxone, protonix, thiamine. Received 1u pRBC and 1u FFP at [facility]. Started on NS @ 150cc/h. Reportedly, trauma surgery was consulted at [facility] and there was initially concern for compartment syndrome and fasciotomy was considered, but ultimately did not occur at the time. The trauma attending Dr. Du recommended orthopedic consultation upon arrival to the [facility] MICU. Labs at [facility] Alk phos 167 [...] ---> and please see images uploaded to [employer]. Resident's Assessment/Plan: Will Ralph is a 36 [...] Code Status: Full Code Staffed with attending guest services coordinator Dr. Marino. Ivy Chua MD Internal Medicine PGY-3 documented in this [id number] Evaluation + Plan note Extracted from: Title:Admission [...] immediate surgery. Patient waiting for bed at [facility] Patient received vitamin K, 1 unit FFP's. [...] tertiary center. Patient waiting for bed at [facility] Acute pancreatitis CT abdomen showed mild inflammation [...] made to ensure accuracy, however, inadvertently computerized habitat conservation planner mistakes may be present. Dr. Aldair Thorpe [...] on January 07, 2022 18:44:52 EDT . [facility]04-[facility] Evaluation + Plan note Future Appointments Appointment Date:12/07/2023 08:00:00 AM Scheduled Provider: [facility] Type:CV Echo (FT) Appointment Date:12/07/2023 09:00:00 AM Scheduled Provider: [facility] Appointment Type:CV EKG (FT) Appointment Date:12/11/2023 08:00:00 AM Scheduled Provider: [facility] Appointment Type:CV Echo Stress (FT) Appointment Date:01/27/2024 09:40:00 AM Scheduled Provider:Loreta Padilla Location:[facility] Appointment Type: Open Future Scheduled Tests Laboratory* HgbA1c 07/24/23 * Dbnqa-8-Wwdsueebmrk 09/01/23 * Ceruloplasmin 09/01/23 * Antimitochondrial Antibody, [...] Contrast 12/11/23 * Echo Transthoracic Complete 12/07/23 [facility] Future Appointments Appointment Date:03/16/2023 11:00:00 AM Scheduled Provider:Teddy Hitchcock MD [facility] Appointment Type:WC Follow Up Visit (FT) [facility] Future Appointments Appointment Date:03/30/2023 11:00:00 AM Scheduled Provider:Teddy Hitchcock MD [facility] Appointment Type:WC Follow Up Visit (FT) [facility] note Future Appointments Appointment Date:04/16/2023 12:00:00 PM Scheduled Provider: [facility] Appoint[facility] Type:US Duplex Procedures (FT) Appointment Date:04/23/2023 10:15:00 AM Scheduled Provider:Teddy Hitchcock MD [facility] Appointment Type:WC Follow Up Visit (FT) Future Scheduled Tests Radiology* US PVR Lower EXT Complete Bilat 04/16/23 [facility] Future Appointments Appointment Date:04/23/2023 10:15:00 AM Scheduled Provider:Teddy Hitchcock MD [facility] Appointment Type:WC Follow Up Visit (FT) [facility] Plan note Future Appointments Appointment Date:04/30/2023 08:30:00 AM Scheduled Provider: [facility] Appoint[facility] Type:WC Assessment (FT) Appointment Date:05/07/2023 11:30:00 AM Scheduled Provider:Teddy Hitchcock MD [facility] Appointment Type:WC Follow Up Visit (FT) [facility] Plan note Future Appointments Appointment Date:05/07/2023 11:30:00 AM Scheduled Provider:Teddy Hitchcock MD [facility] Appointment Type:WC Follow Up Visit (FT) [facility] Plan note Future Appointments Appointment Date:05/14/2023 07:00:00 AM Scheduled Provider:Teddy Hitchcock MD [facility] Appointment Type:WC Follow Up Visit (FT) [facility] Future Appointments Appointment Date:05/21/2023 11:15:00 AM Scheduled Provider:Teddy Hitchcock MD [facility] Appointment Type:WC Follow Up Visit (FT) [facility] Future Appointments Appointment Date:06/04/2023 10:45:00 AM Scheduled Provider:Teddy Hitchcock MD [facility] Appointment Type:WC Follow Up Visit (FT) [facility] Future Appointments Appointment Date:06/11/2023 01:00:00 PM Scheduled Provider: [facility] Appointment Type:WC Assessment (FT) Appointment Date:06/18/2023 10:00:00 AM Scheduled Provider:Teddy Hitchcock MD [facility] Appointment Type:WC Follow Up Visit (FT) [facility] Future Appointments Appointment Date:06/25/2023 11:00:00 AM Scheduled Provider:Teddy Hitchcock MD [facility] Appointment Type:WC Follow Up Visit (FT) [facility] Future Appointments Appointment Date:07/06/2023 10:30:00 AM Scheduled Provider:Teddy Hitchcock MD [facility] Appointment Type:WC Follow Up Visit (FT) [facility] Future Appointments Appointment Date:07/16/2023 09:30:00 AM Scheduled Provider:Teddy Hitchcock MD [facility] Appointment Type:WC Follow Up Visit (FT) [facility] Future Appointments Appointment Date:07/23/2023 09:00:00 AM Scheduled Provider:Teddy Hitchcock MD [facility] Appointment Type:WC Follow Up Visit (FT) Appointment Date:07/24/2023 07:40:00 AM Scheduled Provider:Loreta Padilla Location:[facility] Appointment Type:FM New Patient - Adult [facility] Future Appointments Appointment Date:07/24/2023 07:40:00 AM Scheduled Provider:Loreta Padilla Location:[facility] Appointment Type:FM New Patient - Adult Appointment Date:08/06/2023 09:30:00 AM Scheduled Provider:Teddy Hitchcock MD [facility] App[facility] Type:WC Follow Up Visit (FT) [facility] Future Appointments Appointment Date:08/06/2023 09:30:00 AM Scheduled Provider:Teddy Hitchcock MD [facility] Appointment Type:WC Follow Up Visit (FT) Appointment Date:08/21/2023 07:20:00 AM Scheduled Provider:Loreta Padilla Location:[facility] Appointment Type: Open Future Scheduled Tests [...] Acid 07/24/23 * Vitamin B12 Level 07/24/23 [facility] Primary Care Evaluation + Plan note Future Appointments Appointment Date:08/21/2023 07:20:00 AM Scheduled Provider:Loreta Padilla Location:[facility] Appointment Type:FM Open Appointment Date:09/01/2023 12:00:00 PM Scheduled Provider:Mario Evans MD [place] Type[facility] New Patient Future Scheduled Tests Laboratory* [...] Acid 07/24/23 * Vitamin B12 Level 07/24/23 [facility] Future Appointments Appointment Date:09/01/2023 12:00:00 PM Scheduled Provider:Carrol MULTANI, Mario Xiong [place] Appointment Type:BAD New Patient Appointment Date:10/28/2023 09:00:00 AM Scheduled Provider:Loreta Padilla [place] Appointment Type: Open Future Scheduled Tests Laboratory* [...] Acid 07/24/23 * Vitamin B12 Level 07/24/23 [facility] Primary Care Evaluation + Plan note Future Appointments Appointment Date:09/03/2023 09:00:00 AM Scheduled Provider: [facility] Appointment Type:US Abdominal/Pelvis () Appointment Date:10/28/2023 09:00:00 AM Scheduled Provider:Loreta Padilla Location:[facility] Appointment Type: Open Future Scheduled Tests Laboratory* HgbA1c 07/24/23 * Hdsng-9-Cjwitjqicgh 09/01/23 * Ceruloplasmin 09/01/23 * Antimitochondrial Antibody, [...] B12 Level 07/24/23 Radiology* US Liver 09/03/23 [facility] Evaluation + Plan note Future Appointments Appointment Date:10/28/2023 09:00:00 AM Scheduled Provider:Loreta Padilla Location:[facility] Appointment Type: Open Future Scheduled Tests Laboratory* HgbA1c 07/24/23 * Ekwcj-4-Uavaplvbuey 09/01/23 * Ceruloplasmin 09/01/23 * Antimitochondrial Antibody, [...] Acid 07/24/23 * Vitamin B12 Level 07/24/23 [facility] Future Appointments Appointment Date:09/30/2023 10:15:00 AM Scheduled Provider: Location:[facility] Appointment Type:Surgery FT Appointment Date:10/01/2023 11:20:00 AM Scheduled Provider:Loreta Padilla Location:[facility] Appointment Type:FM Open Appointment Date:10/28/2023 09:00:00 AM Scheduled Provider:Loreta Padilla Location:[facility] Appointment Type: Open Future Scheduled Tests Laboratory* HgbA1c 07/24/23 * Rrgud-6-Tuerrmgcgyo 09/01/23 * Ceruloplasmin 09/01/23 * Antimitochondrial Antibody, Quantitative 09/01/23 * Smooth Muscle Antibody Screen 09/01/23 * GOEVANNA w/Reflex if POS 09/01/23 * IgG, Quant. [...] Acid 07/24/23 * Vitamin B12 Level 07/24/23 [facility] Evaluation + Plan note Future Appointments Appointment Date:11/11/2023 03:00:00 PM Scheduled Provider: Location:[facility] Appointment Type:Surgery FT Appointment Date:11/13/2023 01:00:00 PM Scheduled Provider:Iglesia Dior MD [facility] Appoint[facility] Type:Cardiology New Patient (FT) Appointment Date:12/07/2023 08:00:00 AM Scheduled Provider: [facility] Appointment Type:CV Echo (FT) Appointment Date:12/07/2023 09:00:00 AM Scheduled Provider: [facility] Appointment Type:CV EKG () Appointment Date:12/07/2023 09:30:00 AM Scheduled Provider: [facility] Appointment Type:CV Echo Stress () Appointment Date:01/27/2024 09:40:00 AM Scheduled Provider:Loreta Padilla Location:[facility] Appointment Type: Open Future Scheduled Tests Laboratory* HgbA1c 07/24/23 * Xzyai-1-Euxchedglre 09/01/23 * Ceruloplasmin 09/01/23 * Antimitochondrial Antibody, [...] Contrast 12/07/23 * Echo Transthoracic Complete 12/07/23 [facility] Primary Care Evaluation + Plan note Future Appointments Appointment Date:01/27/2024 09:40:00 AM Scheduled Provider:Loreta Padilla Location:[facility] Appointment Type:FM Open Appointment Date:05/12/2024 03:15:00 PM Scheduled Provider:Carrol MULTANI, Mario Xiong [place] Appointment Type:BADH Follow Up Future Scheduled Tests Laboratory* HgbA1c 07/24/23 * Osyfg-1-Bcnddbbhhpf 09/01/23 * Ceruloplasmin 09/01/23 * Antimitochondrial Antibody, [...] Acid 07/24/23 * Vitamin B12 Level 07/24/23 [facility] Future Appointments Appointment Date:12/23/2023 10:00:00 AM Scheduled Provider:Loreta Padilla Location:[facility] Appointment Type: Hospital Follow Up w/TCM Appointment Date:12/25/2023 11:15:00 AM Scheduled Provider:Marc Liz MD [facility] App[facility] Type:Cardiology New Patient () Appointment Date:01/27/2024 09:40:00 AM Scheduled Provider:Loreta Padilla Location:[facility] Appointment Type: Open Appointment Date:05/12/2024 03:15:00 PM Scheduled Provider:Mario Evans MD [place] App[facility] Type:[facility] Follow Up Diagnostic Tests Pending * Acute Hepatitis A B C Panel 12/21/23 * HCV Antibody RFX to Quant PCR 12/21/23 * HIV Screen 4th Generation wRfx 12/21/23 Future Scheduled Tests Laboratory* Xdxnl-9-Hevilmwzzry 09/01/23 * Ceruloplasmin 09/01/23 * Antimitochondrial Antibody, [...] 07/24/23 * PT 07/24/23 * PT 09/01/23 [facility] Future Appointments Appointment Date:12/31/2023 08:00:00 AM Scheduled Provider: [facility] Appointment Type:US Abdominal/Pelvis () Appointment Date:01/06/2024 08:15:00 AM Scheduled Provider:Marc Liz MD [facility] Appointment Type:Cardiology New Patient (FT) Appointment Date:01/27/2024 09:40:00 AM Scheduled Provider:Loreta Padilla Location:[facility] Appointment Type:FM Open Appointment Date:05/12/2024 03:15:00 PM Scheduled Provider:Mario Evans MD [place] Appointment Type:BAD Follow Up Future Scheduled Tests Laboratory* Uciei-7-Olanotjwmhj 09/01/23 * Ceruloplasmin 09/01/23 * Antimitochondrial Antibody, [...] PT 09/01/23 Radiology* US Abdomen, Limited 12/31/23 [facility] Primary Care Evaluation + Plan note Future Appointments Appointment Date:01/06/2024 08:15:00 AM Scheduled Provider:Marc Liz MD [facility] Appointment Type:Cardiology New Patient (FT) Appointment Date:01/27/2024 09:40:00 AM Scheduled Provider:Loreta Padilla Location:[facility] Appointment Type:FM Open Appointment Date:05/12/2024 03:15:00 PM Scheduled Provider:Mario Evans MD [place] Appointment Type:BAD Follow Up Future Scheduled Tests Laboratory* Fyzff-7-Qlxppxzazbc 09/01/23 * Ceruloplasmin 09/01/23 * Antimitochondrial Antibody, [...] 07/24/23 * PT 07/24/23 * PT 09/01/23 [facility] Future Appointments Appointment Date:02/26/2024 08:15:00 AM Scheduled Provider:Barby MULTANI, Iglesia Mary [facility] Appointment Type:Cardiology New Patient (FT) Appointment Date:04/29/2024 09:00:00 AM Scheduled Provider:Loreta Padilla Location:[facility] Appointment Type: Open Appointment Date:05/12/2024 03:15:00 PM Scheduled Provider:Mario Evans MD [place] App[facility]ment Type:[facility] Follow Up Future Scheduled Tests Laboratory* Dqhhx-1-Cfoggobdapf 09/01/23 * Ceruloplasmin 09/01/23 * Antimitochondrial Antibody, [...] 07/24/23 * PT 07/24/23 * PT 09/01/23 [facility] Primary Care Evaluation + Plan note Future Appointments Appointment Date:02/22/2024 09:15:00 AM Scheduled Provider:Marc Liz MD [facility] Type:Cardiology New Patient (FT) Appointment Date:02/25/2024 09:00:00 AM Scheduled Provider:Ella Barahona [facility] Appoint[facility] Type:ONC Office Visit New 45 (FT) Appointment Date:04/29/2024 09:00:00 AM Scheduled Provider:Loreta Padilla Location:[facility] Appointment Type:FM Open Appointment Date:05/12/2024 03:15:00 PM Scheduled Provider:Mario Evans MD [place] Appointment Type:BADH Follow Up Future Scheduled Tests Laboratory* Wfvqv-7-Lkhwrzeaarr 09/01/23 * Ceruloplasmin 09/01/23 * Antimitochondrial Antibody, [...] 07/24/23 * PT 07/24/23 * PT 09/01/23 [facility] Future Appointments Appointment Date:03/14/2024 09:20:00 AM Scheduled Provider:Ella Barahona [facility] Appoint[facility] Type:ONC Office Visit 20 (FT) Appointment Date:03/16/2024 08:15:00 AM Scheduled Provider:Marc Liz MD [facility] Type:Cardiology New Patient (FT) Appointment Date:04/29/2024 09:00:00 AM Scheduled Provider:Loreta Padilla Location:[facility] Appointment Type: Open Appointment Date:05/12/2024 03:15:00 PM Scheduled Provider:Mario Evans MD [place] Appointment Type:BADH Follow Up Future Scheduled Tests Laboratory* Isiru-5-Rgrbzyzbxve 09/01/23 * Ceruloplasmin 09/01/23 * Antimitochondrial Antibody, [...] 07/24/23 * PT 07/24/23 * PT 09/01/23 [facility] Future Appointments Appointment Date:03/14/2024 09:20:00 AM Scheduled Provider:Ella Barahona [facility] Appointment Type:ONC Office Visit 20 (FT) Appointment Date:03/17/2024 02:15:00 PM Scheduled Provider:Marc Liz MD [facility] Type:Cardiology New Patient (FT) Appointment Date:04/29/2024 09:00:00 AM Scheduled Provider:Loreta Padilla Location:[facility] Appointment Type:FM Open Appointment Date:05/12/2024 03:15:00 PM Scheduled Provider:Mario Evans MD [place] App[facility]ment Type:[facility] Follow Up Diagnostic Tests Pending * Haptoglobin 03/02/24 * Copper Level 03/02/24 Future Scheduled Tests Laboratory* Cdugn-7-Ttgjobrhfpa 09/01/23 * Ceruloplasmin 09/01/23 * Antimitochondrial Antibody, [...] 07/24/23 * PT 07/24/23 * PT 09/01/23 [facility] Future Appointments Appointment Date:03/17/2024 02:15:00 PM Scheduled Provider:Marc Liz MD [facility] Appointment Type:Cardiology New Patient (FT) Appointment Date:04/13/2024 09:00:00 AM Scheduled Provider:Kavon Lu DO [facility] Appoint[facility] Type:ONC Office Visit 20 (FT) Appointment Date:04/29/2024 09:00:00 AM Scheduled Provider:Loreta Padilla Location:[facility] Appointment Type:FM Open Appointment Date:05/12/2024 03:15:00 PM Scheduled Provider:Mario Evans MD [place] App[facility]ment Type:[facility] Follow Up Future Scheduled Tests Laboratory* Erlkz-7-Oqpclfbufre 09/01/23 * Ceruloplasmin 09/01/23 * Antimitochondrial Antibody, [...] * PT 09/01/23 * Reticulocyte Count 04/04/24 [facility] Future Appointments Appointment Date:04/13/2024 09:00:00 AM Scheduled Provider:Kavon Lu DO [facility] Appoint[facility] Type:ONC Office Visit 20 (FT) Appointment Date:04/29/2024 09:00:00 AM Scheduled Provider:Loreta Padilla Location:[facility] Appointment Type: Open Appointment Date:05/12/2024 03:15:00 PM Scheduled Provider:Mario Evans MD [place] Appointment Type:BADH Follow Up Future Scheduled Tests Laboratory* Rxugz-7-Hwqcrwwslzd 09/01/23 * Ceruloplasmin 09/01/23 * Antimitochondrial Antibody, [...] * PT 09/01/23 * Reticulocyte Count 04/04/24 [facility] Future Appointments Appointment Date:05/05/2024 01:40:00 PM Scheduled Provider:Kavon Lu DO [facility] Appointment Type:ONC Office Visit 20 (FT) Appointment Date:05/12/2024 03:15:00 PM Scheduled Provider:Carrol MULTANI, Mario Xiong [place] Appointment Type:BADH Follow Up Appointment Date:07/29/2024 03:00:00 PM Scheduled Provider:Loreta Padilla Location:[facility] Appointment Type: Open Future Scheduled Tests Laboratory* Qwxoj-9-Bmicxroudkt 09/01/23 * Ceruloplasmin 09/01/23 * Antimitochondrial Antibody, [...] Diff 07/24/23 * CBC w/ Auto Diff 04/27/24 * Comprehensive Metabolic Panel 07/24/23 * Comprehensive Metabolic Panel 09/01/23 * Comprehensive Metabolic Panel 04/27/24 * Ferritin 09/01/23 * Haptoglobin 04/29/24 * Iron Level 09/01/23 * Lactate Dehydrogenase 04/27/24 * Lipase Level 07/24/23 * Lipid Panel 07/24/23 * PT 07/24/23 * PT 09/01/23 * Reticulocyte Count 04/27/24 [facility] Primary Care Evaluation + Plan note Future Appointments Appointment Date:05/11/2024 09:00:00 AM Scheduled Provider:Kavon Lu DO [facility] Appoint[facility] Type:ONC Office Visit 20 (FT) Appointment Date:05/12/2024 03:15:00 PM Scheduled Provider:Mario Evans MD [place] App[facility] Type:[facility] Follow Up Appointment Date:07/29/2024 03:00:00 PM Scheduled Provider:Loreta Padilla Location:[facility] Appointment Type:FM Open Diagnostic Tests Pending * Haptoglobin 05/06/24 Future Scheduled Tests Laboratory* Kuwgg-6-Bphvxqkfoxy 09/01/23 * Ceruloplasmin 09/01/23 * Antimitochondrial Antibody, [...] 07/24/23 * PT 07/24/23 * PT 09/01/23 [facility] Evaluation + Plan note Future Appointments Appointment Date:05/12/2024 03:15:00 PM Scheduled Provider:Mario Evans MD [place] App[facility]ment Type:[facility] Follow Up Appointment Date:07/14/2024 02:40:00 PM Scheduled Provider:Kavon Lu DO [facility] Appoint[facility] Type:ONC Office Visit 20 (FT) Appointment Date:07/29/2024 03:00:00 PM Scheduled Provider:Loreta Padilla Location:[facility] Appointment Type:FM Open Future Scheduled Tests Laboratory* Antibody Screen 07/11/24 * Neran-3-Vbsfedqqbiu 09/01/23 * Ceruloplasmin 09/01/23 * Antimitochondrial Antibody, Quantitative 09/01/23 * Erythropoietin Level 07/11/24 * Smooth Muscle Antibody Screen 09/01/23 * GEOVANNA w/Reflex if POS 09/01/23 * IgG, Quant. 09/01/23 * O & P Exam, Routine 12/16/23 * TIBC Calculated 09/01/23 * Acute Hepatitis A B C Panel 09/01/23 * AYLIN IgG/C3d. 07/11/24 * Alpha Fetoprotein Tumor Marker 09/01/23 * Ammonia Level 07/24/23 * Bilirubin Direct 09/01/23 * CBC w/ Auto Diff 07/24/23 * CBC w/ Auto Diff 07/11/24 * Comprehensive Metabolic Panel 07/24/23 * Comprehensive Metabolic Panel 09/01/23 * Comprehensive Metabolic Panel 07/11/24 * Ferritin 09/01/23 * Ferritin 07/11/24 * Haptoglobin 07/11/24 * Iron Level 09/01/23 * Iron Level 07/11/24 * Iron Percent Saturation 07/11/24 * Lactate Dehydrogenase 07/11/24 * Lipase Level 07/24/23 * Lipid Panel 07/24/23 * PT 07/24/23 * PT 09/01/23 * Reticulocyte Count 07/11/24 * Transferrin 07/11/24 [facility] Evaluation + Plan note Future Appointments Appointment Date:05/24/2024 10:30:00 AM Scheduled Provider: [facility] Appointment Type:US Abdominal/Pelvis (FT) Appointment Date:06/09/2024 01:15:00 PM Scheduled Provider:Mario Evans MD [place] Appointment Type:BADH Follow Up Appointment Date:07/14/2024 02:40:00 PM Scheduled Provider:Kavon Lu DO [facility] Appointment Type:ONC Office Visit 20 (FT) Appointment Date:07/29/2024 03:00:00 PM Scheduled Provider:Loreta Padilla Location:[facility] Appointment Type: Open [facility] Scheduled Tests Laboratory* Antibody Screen 07/11/24 * Kboyj-2-Oxzwqkqlbwu 09/01/23 * Fewmy-9-Myvzftyndqv 9/5/24 * Ceruloplasmin 09/01/23 * Ceruloplasmin 05/12/24 * Antimitochondrial Antibody, Quantitative 09/01/23 * Antimitochondrial Antibody, Quantitative 05/12/24 * Erythropoietin Level 07/11/24 * Smooth Muscle Antibody Screen 09/01/23 * Smooth Muscle Antibody Screen 05/12/24 * GEOVANNA w/Reflex if POS 09/01/23 * GEOVANNA w/Reflex if POS 05/12/24 * IgG, Quant. 09/01/23 * IgG, Quant. 05/12/24 * O & P Exam, Routine 12/16/23 * PT & PTT 05/12/24 * PT & PTT 11/09/24 * TIBC Calculated 09/01/23 * TIBC Calculated 05/12/24 * Hepatitis A Virus (HAV) Antibody, Total 05/12/24 * Acute Hepatitis A B C Panel 09/01/23 * AYLIN IgG/C3d. 07/11/24 * Alpha Fetoprotein Tumor Marker 09/01/23 * Alpha Fetoprotein Tumor Marker 05/12/24 * Alpha Fetoprotein Tumor Marker 11/09/24 * Alpha Fetoprotein Tumor Marker 05/12/24 * Ammonia Level 07/24/23 * Bilirubin Direct 09/01/23 * Bilirubin Direct 05/12/24 * CBC w/ Auto Diff 07/24/23 * CBC w/ Auto Diff 07/11/24 * CBC w/ Auto Diff 05/12/24 * CBC w/ Auto Diff 11/09/24 * CBC w/ Auto Diff 05/12/24 * Comprehensive Metabolic Panel 07/24/23 * Comprehensive Metabolic Panel 09/01/23 * Comprehensive Metabolic Panel 07/11/24 * Comprehensive Metabolic Panel 05/12/24 * Comprehensive Metabolic Panel 11/09/24 * Comprehensive Metabolic Panel 05/12/24 * Comprehensive Metabolic Panel 05/12/24 * Ferritin 09/01/23 * Ferritin 07/11/24 * Ferritin 05/12/24 * Haptoglobin 07/11/24 * Hepatitis B Surface Antibody 05/12/24 * Hepatitis B Surface Antigen 05/12/24 * Iron Level 09/01/23 * Iron Level 07/11/24 * Iron Level 05/12/24 * Iron Percent Saturation 07/11/24 * Lactate Dehydrogenase 07/11/24 * Lipase Level 07/24/23 * Lipid Panel 07/24/23 * PT 07/24/23 * PT 09/01/23 * PT 05/12/24 * Reticulocyte Count 07/11/24 * Transferrin 07/11/24 Radiology* US Liver 05/24/24 [facility] Evaluation + Plan note Future Appointments Appointment Date:07/14/2024 02:40:00 PM Scheduled Provider:Kavon Lu DO [facility] Appointment Type:ONC Office Visit 20 (FT) Appointment Date:07/29/2024 03:00:00 PM Scheduled Provider:Loreta Padilla Location:[facility] Appointment Type:FM Open Appointment Date:11/18/2024 08:15:00 AM Scheduled Provider: Location:[facility] Appointment Type:Surgery FT Appointment Date:11/21/2024 09:15:00 AM Scheduled Provider:Mario Evans MD [place] Type[facility] Follow Up Future Scheduled Tests Laboratory* Antibody Screen 07/11/24 * Erythropoietin Level 07/11/24 * O & P Exam, Routine 12/16/23 * PT & PTT 11/09/24 * AYLIN IgG/C3d. 07/11/24 * Alpha Fetoprotein Tumor Marker 11/09/24 * Ammonia Level 07/24/23 * CBC w/ Auto Diff 07/24/23 * CBC w/ Auto Diff 07/11/24 * CBC w/ Auto Diff 11/09/24 * Comprehensive Metabolic Panel 07/24/23 * Comprehensive Metabolic Panel 07/11/24 * Comprehensive Metabolic Panel 11/09/24 * Ferritin 07/11/24 * Haptoglobin 07/11/24 * Iron Level 07/11/24 * Iron Percent Saturation 07/11/24 * Lactate Dehydrogenase 07/11/24 * Lipase Level 07/24/23 * Lipid Panel 07/24/23 * PT 07/24/23 * Reticulocyte Count 07/11/24 * Transferrin 07/11/24 Radiology* US Liver 11/05/24 [facility] Evaluation + Plan note Future Appointments Appointment Date:07/14/2024 02:40:00 PM Scheduled Provider:Kavon Lu DO [facility] Appointment Type:ONC Office Visit 20 (FT) Appointment Date:07/29/2024 03:00:00 PM Scheduled Provider:Loreta Padilla Location:[facility] Appointment Type:FM Open Appointment Date:11/18/2024 08:15:00 AM Scheduled Provider: Location:[facility] Appointment Type:Surgery FT Appointment Date:11/21/2024 09:15:00 AM Scheduled Provider:Mario Evans MD [place] Appointment Type:BAD Follow Up Diagnostic Tests Pending * Erythropoietin Level 07/09/24 * Haptoglobin 07/09/24 Future Scheduled Tests Laboratory* O & P Exam, Routine 12/16/23 * PT & PTT 11/09/24 * Alpha Fetoprotein Tumor Marker 11/09/24 * Ammonia Level 07/24/23 * CBC w/ Auto Diff 07/24/23 * CBC w/ Auto Diff 11/09/24 * Comprehensive Metabolic Panel 07/24/23 * Comprehensive Metabolic Panel 11/09/24 * Lipase Level 07/24/23 * Lipid Panel 07/24/23 * PT 07/24/23 Radiology* US Liver 11/05/24 [facility] Evaluation + Plan note Future Appointments Appointment Date:08/19/2024 03:20:00 PM Scheduled Provider:Loreta Padilla Location:[facility] Appointment Type: Open Appointment Date:09/29/2024 01:20:00 PM Scheduled Provider:Kavon Lu DO [facility] Appointment Type:ONC Office Visit 20 (FT) Appointment Date:11/18/2024 08:15:00 AM Scheduled Provider: Location:[facility] Appointment Type:Surgery FT Appointment Date:11/21/2024 09:15:00 AM Scheduled Provider:Mario Evans MD [place] Appointment Type:[facility] Follow Up Future Scheduled Tests Laboratory* MELLISA and PE, Serum 09/14/24 * O & P Exam, Routine 12/16/23 * PT & PTT 11/09/24 * Free K+L Lt Chains,Qn,S 09/14/24 * Alpha Fetoprotein Tumor Marker 11/09/24 * Ammonia Level 07/24/23 * CBC w/ Auto Diff 07/24/23 * CBC w/ Auto Diff 09/14/24 * CBC w/ Auto Diff 11/09/24 * Comprehensive Metabolic Panel 07/24/23 * Comprehensive Metabolic Panel 09/14/24 * Comprehensive Metabolic Panel 11/09/24 * Ferritin 09/14/24 * Haptoglobin 09/14/24 * Iron Level 09/14/24 * Iron Percent Saturation 09/14/24 * Lactate Dehydrogenase 09/14/24 * Lipase Level 07/24/23 * Lipid Panel 07/24/23 * PT 07/24/23 Radiology* US Liver 11/05/24 [facility] Evaluation + Plan note Future Appointments Appointment Date:06/09/2024 01:15:00 PM Scheduled Provider:Mario Evans MD [place] Appointment Type:BADH Follow Up Appointment Date:07/14/2024 02:40:00 PM Scheduled Provider:Kavon Lu DO [facility] Appointment Type:ONC Office Visit 20 (FT) Appointment Date:07/29/2024 03:00:00 PM Scheduled Provider:Loreta Padilla Location:[facility] Appointment Type: Open Diagnostic Tests Pending * [id number] 05/24/24 * GEOVANNA w/Reflex if POS 05/24/24 * Antimitochondrial Antibody, Quantitative 05/24/24 * Ceruloplasmin 05/24/24 * Acute Hepatitis A B C Panel 05/24/24 * Alpha Fetoprotein Tumor Marker 05/24/24 * Hepatitis B Surface Antibody 05/24/24 * Hepatitis B Surface Antigen 05/24/24 * Hepatitis A Virus (HAV) Antibody, Total 05/24/24 * IgG, Quant. 05/24/24 * Smooth Muscle Antibody Screen 05/24/24 * [id number] 05/24/24 * GEOVANNA w/Reflex if POS 05/24/24 * Antimitochondrial Antibody, Quantitative 05/24/24 * Ceruloplasmin 05/24/24 Future Scheduled Tests Laboratory* Antibody Screen 07/11/24 * Erythropoietin Level 07/11/24 * O & P Exam, Routine 12/16/23 * PT & PTT 11/09/24 * AYLIN IgG/C3d. 07/11/24 * Alpha Fetoprotein Tumor Marker 11/09/24 * Ammonia Level 07/24/23 * CBC w/ Auto Diff 07/24/23 * CBC w/ Auto Diff 07/11/24 * CBC w/ Auto Diff 11/09/24 * Comprehensive Metabolic Panel 07/24/23 * Comprehensive Metabolic Panel 07/11/24 * Comprehensive Metabolic Panel 11/09/24 * Ferritin 07/11/24 * Haptoglobin 07/11/24 * Iron Level 07/11/24 * Iron Percent Saturation 07/11/24 * Lactate Dehydrogenase 07/11/24 * Lipase Level 07/24/23 * Lipid Panel 07/24/23 * PT 07/24/23 * Reticulocyte Count 07/11/24 * Transferrin 07/11/24 [facility] Evaluation + Plan note Future Appointments Appointment Date:09/29/2024 01:20:00 PM Scheduled Provider:Kavon Lu DO Location[facility] Appointment Type:ONC Office Visit 20 (FT) Appointment Date:11/15/2024 07:40:00 AM Scheduled Provider:Vic Carrion Location:[facility] Appointment Type: Open Appointment Date:11/18/2024 08:15:00 AM Scheduled Provider: Location:[facility] Appointment Type:Surgery FT Appointment Date:11/21/2024 09:15:00 AM Scheduled Provider:Mario Evans MD [place] Appointment Type:BADH Follow Up Future Scheduled Tests Laboratory* MELLISA and PE, Serum 09/14/24 * O & P Exam, Routine 12/16/23 * PSA Screen, Total 08/19/24 * PT & PTT 11/09/24 * Free K+L Lt Chains,Qn,S 09/14/24 * Alpha Fetoprotein Tumor Marker 11/09/24 * Ammonia Level 07/24/23 * Ammonia Level 08/19/24 * CBC w/ Auto Diff 07/24/23 * CBC w/ Auto Diff 09/14/24 * CBC w/ Auto Diff 11/09/24 * Comprehensive Metabolic Panel 07/24/23 * Comprehensive Metabolic Panel 09/14/24 * Comprehensive Metabolic Panel 11/09/24 * Ferritin 09/14/24 * Haptoglobin 09/14/24 * Iron Level 09/14/24 * Iron Percent Saturation 09/14/24 * Lactate Dehydrogenase 09/14/24 * Lipase Level 07/24/23 * Lipid Panel 07/24/23 * Lipid Panel 08/19/24 * PT 07/24/23 Radiology* US Liver 11/05/24 [facility] Evaluation + Plan note Future Appointments Appointment Date:09/29/2024 01:20:00 PM Scheduled Provider:Kavon Lu DO Location[facility] Appointment Type:ONC Office Visit 20 (FT) Appointment Date:10/05/2024 09:00:00 AM Scheduled Provider:Vic Carrion Location:[facility] Appointment Type:FM Open Appointment Date:11/18/2024 08:15:00 AM Scheduled Provider: Location:[facility] Appointment Type:Surgery FT Appointment Date:11/21/2024 09:15:00 AM Scheduled Provider:Mario Evans MD [place] App[facility]ment Type:[facility] Follow Up Diagnostic Tests Pending * MELLISA and PE, Serum 09/16/24 * Free K+L Lt Chains,Qn,S 09/16/24 * Haptoglobin 09/16/24 Future Scheduled Tests Laboratory* O & P Exam, Routine 12/16/23 * PSA Screen, Total 08/19/24 * PT & PTT 11/09/24 * Alpha Fetoprotein Tumor Marker 11/09/24 * Ammonia Level 07/24/23 * Ammonia Level 08/19/24 * CBC w/ Auto Diff 07/24/23 * CBC w/ Auto Diff 11/09/24 * Comprehensive Metabolic Panel 07/24/23 * Comprehensive Metabolic Panel 11/09/24 * Lipase Level 07/24/23 * Lipid Panel 07/24/23 * Lipid Panel 08/19/24 * PT 07/24/23 Radiology* US Liver 11/05/24 [facility] Evaluation + Plan note Future Appointments Appointment Date:10/05/2024 09:00:00 AM Scheduled Provider:Vic Carrion Location:[facility] Appointment Type:FM Open Appointment Date:11/11/2024 08:30:00 AM Scheduled Provider: [facility] Appointment Type:US Abdominal/Pelvis (FT) Appointment Date:11/18/2024 08:15:00 AM Scheduled Provider: Location:[facility] Appointment Type:Surgery FT Appointment Date:11/21/2024 09:15:00 AM Scheduled Provider:Mario Evans MD [place] Appointment Type:BADH Follow Up Appointment Date:09/28/2025 02:40:00 PM Scheduled Provider:Kavon Lu DO [facility] Appointment Type:ONC Office Visit 20 (FT) Future Scheduled Tests Laboratory* MELLISA and PE, Serum 09/25/25 * Methylmalonic Acid 09/25/25 * O & P Exam, Routine 12/16/23 * PSA Screen, Total 08/19/24 * PT & PTT 12/26/24 * PT & PTT 03/27/25 * PT & PTT 06/27/25 * PT & PTT 09/27/25 * PT & PTT 11/09/24 * Free K+L Lt Chains,Qn,S 09/25/25 * Alpha Fetoprotein Tumor Marker 11/09/24 * Ammonia Level 07/24/23 * Ammonia Level 08/19/24 * CBC w/ Auto Diff 12/26/24 * CBC w/ Auto Diff 03/27/25 * CBC w/ Auto Diff 06/27/25 * CBC w/ Auto Diff 09/27/25 * CBC w/ Auto Diff 07/24/23 * CBC w/ Auto Diff 11/09/24 * Comprehensive Metabolic Panel 12/26/24 * Comprehensive Metabolic Panel 03/27/25 * Comprehensive Metabolic Panel 06/27/25 * Comprehensive Metabolic Panel 09/27/25 * Comprehensive Metabolic Panel 07/24/23 * Comprehensive Metabolic Panel 11/09/24 * Folate Level 09/25/25 * Haptoglobin 12/26/24 * Haptoglobin 03/27/25 * Haptoglobin 06/27/25 * Haptoglobin 09/27/25 * Lipase Level 07/24/23 * Lipid Panel 07/24/23 * Lipid Panel 08/19/24 * PT 07/24/23 * Reticulocyte Count 12/26/24 * Reticulocyte Count 03/27/25 * Reticulocyte Count 06/27/25 * Reticulocyte Count 09/27/25 * Vitamin B12 Level 09/25/25 Radiology* US Liver 11/11/24 [facility] Evaluation + Plan note Future Appointments Appointment Date:11/11/2024 08:30:00 AM Scheduled Provider: [facility] Appointment Type:US Abdominal/Pelvis (FT) Appointment Date:11/18/2024 08:15:00 AM Scheduled Provider: Location:[facility] Appointment Type:Surgery FT Appointment Date:11/21/2024 09:15:00 AM Scheduled Provider:Mario Evans MD [place] Appointment Type:BADH Follow Up Appointment Date:04/07/2025 08:40:00 AM Scheduled Provider:Vic Carrion Location:[facility] Appointment Type:FM Open Appointment Date:09/28/2025 02:40:00 PM Scheduled Provider:Kavon Lu DO [facility] Appointment Type:ONC Office Visit 20 (FT) Future Scheduled Tests Laboratory* MELLISA and PE, Serum 09/25/25 * Methylmalonic Acid 09/25/25 * O & P Exam, Routine 12/16/23 * PSA Screen, Total 08/19/24 * PT & PTT 12/26/24 * PT & PTT 03/27/25 * PT & PTT 06/27/25 * PT & PTT 09/27/25 * PT & PTT 11/09/24 * Free K+L Lt Chains,Qn,S 09/25/25 * Alpha Fetoprotein Tumor Marker 11/09/24 * Ammonia Level 07/24/23 * Ammonia Level 08/19/24 * CBC w/ Auto Diff 12/26/24 * CBC w/ Auto Diff 03/27/25 * CBC w/ Auto Diff 06/27/25 * CBC w/ Auto Diff 09/27/25 * CBC w/ Auto Diff 07/24/23 * CBC w/ Auto Diff 11/09/24 * Comprehensive Metabolic Panel 12/26/24 * Comprehensive Metabolic Panel 03/27/25 * Comprehensive Metabolic Panel 06/27/25 * Comprehensive Metabolic Panel 09/27/25 * Comprehensive Metabolic Panel 07/24/23 * Comprehensive Metabolic Panel 11/09/24 * Folate Level 09/25/25 * Haptoglobin 12/26/24 * Haptoglobin 03/27/25 * Haptoglobin 06/27/25 * Haptoglobin 09/27/25 * Lipase Level 07/24/23 * Lipid Panel 07/24/23 * Lipid Panel 08/19/24 * PT 07/24/23 * Reticulocyte Count 12/26/24 * Reticulocyte Count 03/27/25 * Reticulocyte Count 06/27/25 * Reticulocyte Count 09/27/25 * Vitamin B12 Level 09/25/25 Radiology* US Liver 11/11/24 [facility] Evaluation + Plan note Future Appointments Appointment Date:11/11/2024 08:30:00 AM Scheduled Provider: [facility] Appointment Type:US Abdominal/Pelvis (FT) Appointment Date:11/18/2024 08:15:00 AM Scheduled Provider: Location:[facility] Appointment Type:Surgery FT Appointment Date:11/21/2024 09:15:00 AM Scheduled Provider:Mario Evans MD [place] Appointment Type:BADH Follow Up Appointment Date:04/07/2025 08:40:00 AM Scheduled Provider:Vic Carrion Location:[facility] Appointment Type:FM Open Appointment Date:09/28/2025 02:40:00 PM Scheduled Provider:Kavon Lu DO Location:.[facility] Appointment Type:ONC Office Visit 20 (FT) Future Scheduled Tests Laboratory* MELLISA and PE, Serum 09/25/25 * Methylmalonic Acid 09/25/25 * O & P Exam, Routine 12/16/23 * PSA Screen, Total 08/19/24 * PT & PTT 12/26/24 * PT & PTT 03/27/25 * PT & PTT 06/27/25 * PT & PTT 09/27/25 * PT & PTT 11/09/24 * Free K+L Lt Chains,Qn,S 09/25/25 * Alpha Fetoprotein Tumor Marker 11/09/24 * Ammonia Level 08/19/24 * CBC w/ Auto Diff 12/26/24 * CBC w/ Auto Diff 03/27/25 * CBC w/ Auto Diff 06/27/25 * CBC w/ Auto Diff 09/27/25 * CBC w/ Auto Diff 11/09/24 * Comprehensive Metabolic Panel 12/26/24 * Comprehensive Metabolic Panel 03/27/25 * Comprehensive Metabolic Panel 06/27/25 * Comprehensive Metabolic Panel 09/27/25 * Comprehensive Metabolic Panel 11/09/24 * Folate Level 09/25/25 * Haptoglobin 12/26/24 * Haptoglobin 03/27/25 * Haptoglobin 06/27/25 * Haptoglobin 09/27/25 * Lipid Panel 08/19/24 * Reticulocyte Count 12/26/24 * Reticulocyte Count 03/27/25 * Reticulocyte Count 06/27/25 * Reticulocyte Count 09/27/25 * Vitamin B12 Level 09/25/25 Radiology* US Liver 11/11/24 [facility] Evaluation + Plan note Future Appointments Appointment Date:11/21/2024 08:30:00 AM Scheduled Provider:Sadie Loco PA-C [facility] Appointment Type:Pain Management - Follow Up (FT) Appointment Date:11/21/2024 09:15:00 AM Scheduled Provider:Mario Evans MD Location[place] Appointment Type:BADH Follow Up Appointment Date:04/07/2025 08:40:00 AM Scheduled Provider:Vic Carrion Location:[facility] Appointment Type:FM Open Appointment Date:09/28/2025 02:40:00 PM Scheduled Provider:Kavon Lu DO [facility] Appointment Type:ONC Office Visit 20 (FT) Future Scheduled Tests Laboratory* MELLISA and PE, Serum 09/25/25 * Methylmalonic Acid 09/25/25 * O & P Exam, Routine 12/16/23 * PSA Screen, Total 08/19/24 * PT & PTT 12/26/24 * PT & PTT 03/27/25 * PT & PTT 06/27/25 * PT & PTT 09/27/25 * PT & PTT 05/08/25 * Free K+L Lt Chains,Qn,S 09/25/25 * Alpha Fetoprotein Tumor Marker 05/08/25 * Ammonia Level 08/19/24 * CBC w/ Auto Diff 12/26/24 * CBC w/ Auto Diff 03/27/25 * CBC w/ Auto Diff 06/27/25 * CBC w/ Auto Diff 09/27/25 * CBC w/ Auto Diff 05/08/25 * Comprehensive Metabolic Panel 12/26/24 * Comprehensive Metabolic Panel 03/27/25 * Comprehensive Metabolic Panel 06/27/25 * Comprehensive Metabolic Panel 09/27/25 * Comprehensive Metabolic Panel 05/08/25 * Folate Level 09/25/25 * Haptoglobin 12/26/24 * Haptoglobin 03/27/25 * Haptoglobin 06/27/25 * Haptoglobin 09/27/25 * Lipid Panel 08/19/24 * Reticulocyte Count 12/26/24 * Reticulocyte Count 03/27/25 * Reticulocyte Count 06/27/25 * Reticulocyte Count 09/27/25 * Vitamin B12 Level 09/25/25 Radiology* US Liver 05/08/25 [facility] Evaluation + Plan note Future Appointments Appointment Date:04/07/2025 08:40:00 AM Scheduled Provider:Vic Carrion Location:[facility] Appointment Type: Open Appointment Date:09/28/2025 02:40:00 PM Scheduled Provider:Kavon Lu DO Location:.[facility] Appointment Type:ONC Office Visit 20 (FT) Future Scheduled Tests Laboratory* MELLISA and PE, Serum 09/25/25 * Methylmalonic Acid 09/25/25 * O & P Exam, Routine 12/16/23 * PSA Screen, Total 08/19/24 * PT & PTT 12/26/24 * PT & PTT 03/27/25 * PT & PTT 06/27/25 * PT & PTT 09/27/25 * PT & PTT 05/08/25 * Free K+L Lt Chains,Qn,S 09/25/25 * Alpha Fetoprotein Tumor Marker 05/08/25 * Ammonia Level 08/19/24 * CBC w/ Auto Diff 12/26/24 * CBC w/ Auto Diff 03/27/25 * CBC w/ Auto Diff 06/27/25 * CBC w/ Auto Diff 09/27/25 * CBC w/ Auto Diff 05/08/25 * CBC w/ Auto Diff 11/21/24 * Comprehensive Metabolic Panel 12/26/24 * Comprehensive Metabolic Panel 03/27/25 * Comprehensive Metabolic Panel 06/27/25 * Comprehensive Metabolic Panel 09/27/25 * Comprehensive Metabolic Panel 05/08/25 * Comprehensive Metabolic Panel 11/21/24 * Folate Level 09/25/25 * Haptoglobin 12/26/24 * Haptoglobin 03/27/25 * Haptoglobin 06/27/25 * Haptoglobin 09/27/25 * Lipid Panel 08/19/24 * PT 11/21/24 * Reticulocyte Count 12/26/24 * Reticulocyte Count 03/27/25 * Reticulocyte Count 06/27/25 * Reticulocyte Count 09/27/25 * Vitamin B12 Level 09/25/25 Radiology* US Liver 05/08/25 [facility] Evaluation + Plan note Future Appointments Appointment Date:12/20/2024 08:15:00 AM Scheduled Provider:Sadie Loco PA-C [facility] Appointment Type:Pain Management - Follow Up (FT) Appointment Date:04/07/2025 08:40:00 AM Scheduled Provider:Vic Carrion Location:[facility] Appointment Type:FM Open Appointment Date:09/28/2025 02:40:00 PM Scheduled Provider:Kavon Lu DO [facility] Appointment Type:ONC Office Visit 20 (FT) Future Scheduled Tests Laboratory* MELLISA and PE, Serum 09/25/25 * Methylmalonic Acid 09/25/25 * O & P Exam, Routine 12/16/23 * PSA Screen, Total 08/19/24 * PT & PTT 12/26/24 * PT & PTT 03/27/25 * PT & PTT 06/27/25 * PT & PTT 09/27/25 * PT & PTT 05/08/25 * Free K+L Lt Chains,Qn,S 09/25/25 * Alpha Fetoprotein Tumor Marker 05/08/25 * Ammonia Level 08/19/24 * CBC w/ Auto Diff 12/26/24 * CBC w/ Auto Diff 03/27/25 * CBC w/ Auto Diff 06/27/25 * CBC w/ Auto Diff 09/27/25 * CBC w/ Auto Diff 05/08/25 * CBC w/ Auto Diff 11/21/24 * Comprehensive Metabolic Panel 12/26/24 * Comprehensive Metabolic Panel 03/27/25 * Comprehensive Metabolic Panel 06/27/25 * Comprehensive Metabolic Panel 09/27/25 * Comprehensive Metabolic Panel 05/08/25 * Comprehensive Metabolic Panel 11/21/24 * Folate Level 09/25/25 * Haptoglobin 12/26/24 * Haptoglobin 03/27/25 * Haptoglobin 06/27/25 * Haptoglobin 09/27/25 * Lipid Panel 08/19/24 * PT 11/21/24 * Reticulocyte Count 12/26/24 * Reticulocyte Count 03/27/25 * Reticulocyte Count 06/27/25 * Reticulocyte Count 09/27/25 * Vitamin B12 Level 09/25/25 Radiology* US Liver 05/08/25 [facility] evaluation note* Diagnosis Hemolytic anemia (HCC)- Primary Acquired [...] cholecystitis or obstruction [facility] Diagnosis Coagulation defect (HCC)- Primary Other and unspecified coagulation defects Alcoholic fatty liver Hyperbilirubinemia Disorders of bilirubin excretion Alcoholic hepatitis, unspecified whether ascites present (HCC) [facility] Diagnosis 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, unspecified site [facility] Diagnosis Lymphedema- Primary Other noninfectious lymphedema [facility] Diagnosis Other chronic pain- Primary Spinal cord stimulator status [facility] N[facility]ative - Reported* Type Description Date Medical History anxiety Medical History LIVER ISSUES Surgical History fx jaw Hospitalization History LIVER ISSUES 2021 [employer] Other Hospital course Narrative No data available for this section [facility] No data available for this section [facility] Discharge instructions* Attachments The following attachments cannot be sent through Care Everywhere. * Moderate Sedation in Adults Discharge Instructions ([place]) * Liver Biopsy Discharge Instructions ([place]) [facility]ructionsNot on filedocumented in [address] [facility] SystemInstructionsNot on filedocumented in this encounterPro[address] [facility] SystemInstructionsNot on filedocumented in this encounterProWilson [address] [facility] SystemInstructionsNot on filedocumented in [facility] No data available for this section [facility]Reason for referral (narrative)* Tests/Procedures (Routine) - Authorized Specialty Diagnoses / Procedures Referred By Contact Referred To Contact Cardiovascular Testing Diagnoses Bilateral swelling of feet and ankles Tanvir Black MD [address] [facility] [place] [id number] MHS CARD NON INVASIVE [address] [place] [address] Referral ID Status Reason Start Date Expiration Date V isits Requested Visits Authorized [id number] Authorized 03/13/2022 03/13/2023 1 1 Scheduling Instructions [...] call the [facility] at [phone] (BEAT) if you are unable to keep [...] SpO2 100 %. [email or web address] N[facility]ative* Auth/Cert Specialty Diagnoses / Procedures Referred By Taya hope Referred To Contact Case Management Diagnoses Acute Liver Failure Procedures THE [employer] [place] [address] Phone: [phone] [employer] [place] [address] Phone: [phone] Referral ID Status Reason Start Date Expiration Date Visits Re quested Visits Authorized [id number] 3 3 [facility] for visit Narrative* Tests/Procedures (Routine) - Closed Specialty Diagnoses / Procedures Referred By Contact Referred To Contact Cardiovascular Testing Diagnoses Bilateral swelling of feet and ankles Tanvir Black MD [address] [place], [place] [address] [address] MHS CARD NON INVASIVE [facility] [place] [address] Referral ID Status Reason Start Date Expiration Date Visits Re quested Visits Authorized [id number] Closed 03/13/2022 03/13/2023 1 1 [facility] for visit Narrative* Neuropsych Testing (Routine) - Closed Specialty Diagnoses / Procedures Referred By Taya hope Referred To Contact Neurology Diagnoses Other specified mononeuropathies of unspecified lower limb Procedures DC NEUROPSYCHOLOGICAL TST EVAL PHYS/QHP EA ADDL HR Evelio Carr, DO [address] [place] [address] Phone: tel: fax: Alex Margoth, DO [address] [place] [address] Phone: tel: fax: Referral ID Status Reason Start Date Expiration Date V isits Requested Visits Authorized [id number] Closed Specialty Services Required 01/13/2025 07/12/2025 1 1 [facility] Reason for Referral Specialty Diagnoses / Procedures Referred By Contac t Referred To Contact Diagnoses Alcoholic fatty liver Hyperbilirubinemia Alcoholic hepatitis, unspecified whether ascites present (HCC) Procedures XA HEPATIC VENOGRAM W/ HEMODYN (CHRISTIANO) Marcello Ibanez MD [address] [place] [address] S INTERVENTIONAL RAD [address] [place] [address] Referral ID Status Reason Start Date Expiration Date Visits Re quested Visits Authorized [id number] Closed 01/20/2023 01/20/2024 1 1 Specialty Diagnoses / Procedures Referred By Contac t Referred To Contact Radiology Diagnoses Alcoholic cirrhosis of liver without ascites (HCC) Procedures XA TRANSJUGULAR LIVER BIOPSY (CHRISTIANO) XA INTERVENTIONAL RADIOLOGY PROCEDURE SERVICE Marcello Ibanez MD [address] [place] [address] [facility]TR[facility] [address] [place] [address] Referral ID Status Reason Start Date Expiration Date V isits Requested Visits Authorized [id number] Authorized 10/27/2022 10/27/2023 1 1 Specialty Diagnoses / Procedures Referred By Contac t Referred To Contact Radiology Diagnoses Rib pain Procedures XR RIBS LT UNILAT W/PA CHEST Theo Burks MD [address] [place] [address] [place] [address] S DIAGNOSTIC RADIOLOGY [address] [place] [address] [place] [address] Referral ID Status Reason Start Date Expiration Date V isits Requested Visits Authorized [id number] Authorized 12/15/2022 12/15/2023 1 1 Specialty Diagnoses / Procedures Referred By Contac t Referred To Contact Diagnoses Theo Molina MD [address] [place] [address] Referral ID Status Reason Start Date Expiration Date V isits Requested Visits Authorized [id number] Pending Review 3 3 Specialty Diagnoses / Procedures Referred By Contac t Referred To Contact Diagnoses Iron deficiency anemia, unspecified iron deficiency anemia type Alcoholic cirrhosis, unspecified whether ascites present (HCC) Alcoholic cirrhosis of liver without ascites (HCC) Tanvir Black MD [address] [place] [address] [place] [address] Referral ID Status Reason Start Date Expiration Date Visits Re quested Visits Authorized [id number] Closed 3 3 Specialty Diagnoses / Procedures Referred By Contac t Referred To Contact Radiology Diagnoses Alcoholic cirrhosis of liver without ascites (HCC) Procedures XA TRANSJUGULAR LIVER BIOPSY (CHRISTIANO) XA INTERVENTIONAL RADIOLOGY PROCEDURE SERVICE Marcello Ibanez MD [address] [place] [address] [facility] [address] [place] [address] Referral ID Status Reason Start Date Expiration Date V isits Requested Visits Authorized [id number] Authorized 10/27/2022 10/27/2023 1 1 Specialty Diagnoses / Procedures Referred By Contac t Referred To Contact Diagnoses Urinary tract infection without hematuria, site unspecified Leg swelling Tanvir Black MD [address] [place] [address] [place] [address] [facility] [address] [place] [address] Referral ID Status Reason Start Date Expiration Date V isits Requested Visits Authorized [id number] Authorized 08/21/2022 02/17/2023 3 3 Scheduling Instructions Please call Internal Medicine at to schedule an appointment. Specialty Diagnoses / Procedures Referred By Contac t Referred To Contact Radiology Diagnoses Lower extremity edema Procedures US LEG RIGHT VENOUS + DOPPLER Tanvir Black MD [address] [facility] [place] [address] [facility] [address] [place] [address] Referral ID Status Reason Start Date Expiration Date Visits Re quested Visits Authorized [id number] Closed 08/14/2022 08/14/2023 1 1 Specialty Diagnoses / Procedures Referred By Contac t Referred To Contact Radiology Diagnoses Iron deficiency anemia, unspecified iron deficiency anemia type Alcoholic cirrhosis, unspecified whether ascites present (HCC) Procedures US HEP PORT SPLEN VEIN + DOPPLER Saskia Madison, STRUCTURAL WORKER-RADIOCOMMUNICATIONS TECHNICIAN [address] [facility] [place] [address] S ULTRASOUND [address] [place] [address] Referral ID Status Reason Start Date Expiration Date V isits Requested Visits Authorized [id number] Authorized 08/14/2022 08/14/2023 1 1 Specialty Diagnoses / Procedures Referred By Contac t Referred To Contact Radiology Diagnoses Iron deficiency anemia, unspecified iron deficiency anemia type Alcoholic cirrhosis, unspecified whether ascites present (HCC) Procedures US LIVER/GALL BLADDER/PANCREAS Saskia Madison, STRUCTURAL WORKER-RADIOCOMMUNICATIONS TECHNICIAN [address] [place] [address] [place] [address] S ULTRASOUND [address] [place] [address] Referral ID Status Reason Start Date Expiration Date V isits Requested Visits Authorized [id number] Authorized 08/14/2022 08/14/2023 1 1 Specialty Diagnoses / Procedures Referred By Contac t Referred To Contact Afua Umanzor MD [address] [place] [address] Referral ID Status Reason Start Date Expiration Date V isits Requested Visits Authorized [id number] Pending Review 3 3 Referral ID Status Reason Start Date Expiration Date V isits Requested Visits Authorized [id number] Pending Review 3 3 Specialty Diagnoses / Procedures Referred By Contac t Referred To Contact Gastroenterology Diagnoses Alcoholic cirrhosis of liver without ascites (HCC) Afua Umanzor MD [address] [place] [address] [facility] LIVER [address] [place] [address] Referral ID Status Reason Start Date Expiration Date V isits Requested Visits Authorized [id number] Authorized 01/17/2022 01/17/2023 3 3 Scheduling Instructions Please call the Liver Clinic at to schedule an appointment if one was not made for you today. Question Answer Reason for Referral: Cirrhosis [31] Which Liver clinic should the patient be scheduled in? 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 Specialty Diagnoses / Procedures Referred By Taya t Referred To Contact Diagnoses Tear of left biceps muscle, initial encounter Afua Umanzor MD [address] [place] [address] [facility] ORTHO HAND [address] [place] [address] Referral ID Status Reason Start Date Expiration Date V isits Requested Visits Authorized [id number] Authorized 01/17/2022 01/17/2023 3 3 Scheduling Instructions Please call the [facility] at [phone] to schedule an appointment if one was not made for you today. Question Answer Adult patient to be evaluated for: Elbow - Bicep Tear - Left [5] Comments No prior visits in PM&R No prior visits in Orthopedics Specialty Diagnoses / Procedures Referred By Contac t Referred To Contact Radiology Procedures US HEP PORT SPLEN VEIN + DOPPLER Ccp [address] [address] [facility] [address] [place] [address] Referral ID Status Reason Start Date Expiration Date Visits Re quested Visits Authorized [id number] Closed 01/10/2022 01/10/2023 1 1 Specialty Diagnoses / Procedures Referred By Contac t Referred To Contact Radiology Procedures US SPLEEN US SPLEEN Ccp [address] [address] [facility]TR[facility] [address] [place] [address] Referral ID Status Reason Start Date Expiration Date Visits Re quested Visits Authorized [id number] Closed 01/09/2022 01/09/2023 1 1 Specialty Diagnoses / Procedures Referred By Contac t Referred To Contact Radiology Procedures XR ABDOMEN 1 VIEW AP Ccp [address] [address] [facility] DIAGNOSTIC RADIOLOGY [address] [place] [address] [place] [address] Referral ID Status Reason Start Date Expiration Date Visits Re quested Visits Authorized [id number] Closed 01/09/2022 01/09/2023 1 1 Specialty Diagnoses / Procedures Referred By Contac t Referred To Contact Radiology Procedures XR ORBITS Ccp [address] [address] [facility] DIAGNOSTIC RADIOLOGY [address] [place] [address] [place] [address] Referral ID Status Reason Start Date Expiration Date Visits Re quested Visits Authorized [id number] Closed 01/08/2022 01/08/2023 1 1 Specialty Diagnoses / Procedures Referred By Contac t Referred To Contact Radiology Procedures US ASCITES SURVEY 4 QUADRANTS Ccp [address] [address] [facility] [address] [place] [address] Referral ID Status Reason Start Date Expiration Date Visits Re quested Visits Authorized [id number] Closed 01/08/2022 01/08/2023 1 1 Specialty Diagnoses / Procedures Referred By Contac t Referred To Contact Radiology Procedures US LIVER/GALL BLADDER/PANCREAS Ccp [address] [place] [address] [place] [address] [facility]TR[facility] [address] [place] [address] Referral ID Status Reason Start Date Expiration Date Visits Re quested Visits Authorized [id number] Closed 01/08/2022 01/08/2023 1 1 Specialty Diagnoses / Procedures Referred By Contac t Referred To Contact Radiology Procedures XRAY CHEST IMAGE IMPORT(CHRISTIANO) Ivy Chua MD [address] [place] [address] [facility] DIAGNOSTIC RADIOLOGY [address] [place] [address] [place] [address] Referral ID Status Reason Start Date Expiration Date Visits Re quested Visits Authorized [id number] Closed 01/08/2022 01/08/2023 1 1 Specialty Diagnoses / Procedures Referred By Contac t Referred To Contact Radiology Procedures CT BODY IMAGE IMPORT(CHRISTIANO) DOWNLOAD POWERSHARE IMAGES TO [facility] Ivy Chua MD [address] [place] [address] [facility] DIAGNOSTIC RADIOLOGY [address] [place] [address] Dr [place] [phone] Referral ID Status Reason Start Date Expiration Date Visits Re quested Visits Authorized [id number] Closed 01/08/2022 01/08/2023 1 1 Specialty Diagnoses / Procedures Referred By Contac t Referred To Contact Radiology Procedures XR HUMERUS LEFT Ccp 3 [place] [id number] [facility] DIAGNOSTIC RADIOLOGY [address] [place] [address] [place] [address] Referral ID Status Reason Start Date Expiration Date Visits Re quested Visits Authorized [id number] Closed 01/08/2022 01/08/2023 1 1 Specialty Diagnoses / Procedures Referred By Contac t Referred To Contact Radiology Procedures XR ELBOW LEFT MINIMUM 3 VIEWS Ccp [address] [place], [place] [id number] [facility] DIAGNOSTIC RADIOLOGY [address] [place] [address] [place] [address] Referral ID Status Reason Start Date Expiration Date Visits Re quested Visits Authorized [id number] Closed 01/08/2022 01/08/2023 1 1 Advance Directives [...] Transdermal, EVERY 7 DAYS, First dose on [facility] 01/09/22 at 1400, Until Discontinued 1446 (Patch [...] RN) 1105 (Given - Provider: Ana Salas, IRENA)1649 (Given - Provider: Rosa Mensah, IRENA) folic acid 1 MG tablet 1 mg, Oral, DAILY, First dose on Thu01/16/22 at 0900, Until Discontinued 0919 (Given - Provider: Chrystal Pritchett LPN) 1105 (Given - Provider: Ana Salas, RN) insulin lispro (HumaLOG) 100 UNIT/ML injection [...] Oral, STAT, 1 dose, On Thu08/15/22 at 3019 1502 (Given - Provid er: Mercedes Zapata RN) Reason for Visit (unrecogniz ed section and content) Reason Onset Date Comments Prior Authorization 01/21/2022 Reason Onset Date Comments Specialty Pharmacy Referral 02/11/2022 [facility] referral- no PA needed Specialty Diagnoses / Procedures Referred By Contac t Referred To Contact Hematology Diagnoses 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) Thrombocytopenia (HCC) Afua Umanzor MD [address] [place] [address] [facility] HEMATOLOGY [address] [place] [address] Referral ID Status Reason Start Date Expiration Date V isits Requested Visits Authorized [id number] Authorized 01/17/2022 01/17/2023 3 3 Reason Comments Blood test Reason Comments Monitoring/follow-up Fatigue nausea and vomiting Reason Comments AIHA On cellcept Cirrhosis/other liver disease Reason Comments New patient, to establish relationship Specialty Diagnoses / Procedures Referred By Contac t Referred To Contact Gastroenterology Diagnoses Alcoholic cirrhosis of liver without ascites (HCC) Tanvir Black MD [address] [place] [address] [facility]IVER [address] [place] [address] Referral ID Status Reason Start Date Expiration Date V isits Requested Visits Authorized [id number] Authorized 05/06/2022 05/06/2023 3 3 Reason Comments [...] Patient Specialty Diagnoses / Procedures Referred By Taya t Referred To Contact Radiology Diagnoses Alcoholic cirrhosis of liver without ascites (HCC) Procedures XA TRANSJUGULAR LIVER BIOPSY (CHRISTIANO) XA INTERVENTIONAL RADIOLOGY PROCEDURE SERVICE Marcello Ibanez MD [address] [place] [address] [facility] [address] [place] [address] Referral ID Status Reason Start Date Expiration Date V isits Requested Visits Authorized [id number] Authorized 10/27/2022 10/27/2023 [address] angio abd aorta runoff, r/o PAD, - DVT, normal Reason Comments ANGIO RLE 04/26 Pain level 4/10 Care Team (unrecognized sect ion and content) Labor Utilization Superintendent Relationship Specialty Start Date End Date Theo Burks MD [address] [place] [address] [address] [place], [place] [id number] PCP - General Family Medicine 08/25/22 Labor Utilization Superintendent Relationship Specialty Start Date End Date Theo Burks MD [address] [place] [address] [address] [place], [place] [id number] PCP - General Family Medicine 08/25/22 Labor Utilization Superintendent Relationship Specialty Start Date End Date Theo Burks MD [address] [place] [address] [address] [place], [place] [id number] PCP - General Family Medicine 08/25/22 Labor Utilization Superintendent Relationship Specialty Start Date End Date Theo Burks MD [address] [place] [address] [place] [address] PCP - General Family Medicine 08/25/22 Labor Utilization Superintendent Relationship Specialty Start Date End Date Theo Burks MD [address] [place] [address] [address] [place], [place] [id number] PCP - General Family Medicine 08/25/22 Abbey Alvarez MD [address] [place] [address] [place] [address] Fellow Gastroenterology 09/13/22 Saskia Madison, LIBAN-RADIOCOMMUNICATIONS TECHNICIAN [address] [place] [address] [place] [address] TOXICS PROGRAM OFFICER Gastroenterology 09/13/22 Labor Utilization Superintendent Relationship Specialty Start Date End Date Theo Burks MD [address] [place] [address] [place] [address] PCP - General Family Medicine 08/25/22 Abbey Alvarez MD [address] [place] [address] [place] [address] Fellow Gastroenterology 09/13/22 Saskia Madison, LIBAN-RADIOCOMMUNICATIONS TECHNICIAN [address] [place] [address] [place] [address] TOXICS PROGRAM OFFICER Gastroenterology 09/13/22 Labor Utilization Superintendent Relationship Specialty Start Date End Date Theo Burks MD [address] [place] [address] [place] [address] PCP - General Family Medicine 08/25/22 Abbey Alvarez MD [address] [place] [address] [place] [address] Fellow Gastroenterology 09/13/22 Saskia Madison, LIBAN-RADIOCOMMUNICATIONS TECHNICIAN [address] [place] [address] [place] [address] TOXICS PROGRAM OFFICER Gastroenterology 09/13/22 Labor Utilization Superintendent Relationship Specialty Start Date End Date Theo Burks MD [address] [place] [address] [place] [address] PCP - General Family Medicine 08/25/22 Abbey Alvarez MD [address] [place] [address] [place] [address] Fellow Gastroenterology 09/13/22 Saskia Madison APRN-RADIOCOMMUNICATIONS TECHNICIAN [address] [place] [address] [place] [address] TOXICS PROGRAM OFFICER Gastroenterology 09/13/22 Labor Utilization Superintendent Relationship Specialty Start Date End Date Theo Burks MD [address] [place] [address] [place] [address] PCP - General Family Medicine 08/25/22 Abbey Alvarez MD [address] [place] [address] [place] [address] Fellow Gastroenterology 09/13/22 Saskia Madison APRN-RADIOCOMMUNICATIONS TECHNICIAN [address] [place] [address] [place] [address] TOXICS PROGRAM OFFICER Gastroenterology 09/13/22 Labor Utilization Superintendent Relationship Specialty Start Date End Date Theo Burks MD [address] [place] [address] [place] [address] PCP - General Family Medicine 08/25/22 Abbey Alvarez MD [address] [place] [address] [place] [address] Fellow Gastroenterology 09/13/22 Saskia Madison APRN-RADIOCOMMUNICATIONS TECHNICIAN [address] [place] [address] [place] [address] TOXICS PROGRAM OFFICER Gastroenterology 09/13/22 Labor Utilization Superintendent Relationship Specialty Start Date End Date Theo Burks MD [address] [place] [address] [place] [address] PCP - General Family Medicine 08/25/22 Abbey Alvarez MD [address] [place] [address] [place] [address] Fellow Gastroenterology 09/13/22 Saskia Madison STRUCTURAL WORKER-RADIOCOMMUNICATIONS TECHNICIAN [address] [place] [address] [place] [address] TOXICS PROGRAM OFFICER Gastroenterology 09/13/22 Labor Utilization Superintendent Relationship Specialty Start Date End Date Theo Burks MD [address] [place] [address] [place] [address] PCP - General Family Medicine 08/25/22 Abbey Alvarez MD [address] [place] [address] [place] [address] Fellow Gastroenterology 09/13/22 Saskia Madison, STRUCTURAL WORKER-RADIOCOMMUNICATIONS TECHNICIAN [address] [place] [address] [place] [address] TOXICS PROGRAM OFFICER Gastroenterology 09/13/22 Labor Utilization Superintendent Relationship Specialty Start Date End Date Theo Burks MD [address] [place] [address] [place] [address] PCP - General Family Medicine 08/25/22 Abbey Alvarez MD [address] [place] [address] [place] [address] Fellow Gastroenterology 09/13/22 Saskia Madison, STRUCTURAL WORKER-RADIOCOMMUNICATIONS TECHNICIAN [address] [place] [address] [place] [address] TOXICS PROGRAM OFFICER Gastroenterology 09/13/22 Labor Utilization Superintendent Relationship Specialty Start Date End Date Theo Burks MD [address] [place] [address] [place] [address] PCP - General Family Medicine 08/25/22 Abbey Alvarez MD [address] [place] [address] [place] [address] Fellow Gastroenterology 09/13/22 Saskia Madison, STRUCTURAL WORKER-RADIOCOMMUNICATIONS TECHNICIAN [address] [place] [address] [place] [address] TOXICS PROGRAM OFFICER Gastroenterology 09/13/22 Marcello Ibanez MD [address] [place] [address] [place] [address] Fellow Gastroenterology 11/08/22 Labor Utilization Superintendent Relationship Specialty Start Date End Date Theo Burks MD [address] [place] [address] [place] [address] PCP - General Family Medicine 08/25/22 Abbey Alvarez MD [address] [place] [address] [place] [address] Fellow Gastroenterology 09/13/22 Saskia Madison, STRUCTURAL WORKER-RADIOCOMMUNICATIONS TECHNICIAN [address] [place] [address] [place] [address] TOXICS PROGRAM OFFICER Gastroenterology 09/13/22 Marcello Ibanez MD [address] [place] [address] Fellow Gastroenterology 11/08/22 Labor Utilization Superintendent Relationship Specialty Start Date End Date Theo Burks MD [address] [place] [address] [place] [address] PCP - General Family Medicine 08/25/22 Abbey Alvarez MD [address] [place] [address] [place] [address] Fellow Gastroenterology 09/13/22 Saskia Madison, STRUCTURAL WORKER-RADIOCOMMUNICATIONS TECHNICIAN [address] [place] [address] [place] [address] TOXICS PROGRAM OFFICER Gastroenterology 09/13/22 Marcello Ibanez MD [address] [place] [address] Fellow Gastroenterology 11/08/22 Labor Utilization Superintendent Relationship Specialty Start Date End Date Theo Burks MD [address] [place] [address] [place] [address] PCP - General Family Medicine 08/25/22 Abbey Alvarez MD [address] [place] [address] [place] [address] Fellow Gastroenterology 09/13/22 Saskia Madison APRN-RADIOCOMMUNICATIONS TECHNICIAN [address] [place] [address] [place] [address] TOXICS PROGRAM OFFICER Gastroenterology 09/13/22 Marcello Ibanez MD [address] [place] [address] Fellow Gastroenterology 11/08/22 Labor Utilization Superintendent Relationship Specialty Start Date End Date Theo Burks MD [address] [place] [address] [place] [address] PCP - General Family Medicine 08/25/22 Abbey Alvarez MD [address] [place] [address] [place] [address] Fellow Gastroenterology 09/13/22 Saskia Madison, LIBAN-RADIOCOMMUNICATIONS TECHNICIAN [address] [place] [address] [place] [address] TOXICS PROGRAM OFFICER Gastroenterology 09/13/22 Marcello Ibanez MD [address] [place] [address] Fellow Gastroenterology 11/08/22 Labor Utilization Superintendent Relationship Specialty Start Date End Date Theo Burks MD [address] [place] [address] [place] [address] PCP - General Family Medicine 08/25/22 Abbey Alvarez MD [address] [place] [address] [place] [address] Fellow Gastroenterology 09/13/22 Saskia Madison APRN-RADIOCOMMUNICATIONS TECHNICIAN [address] [place] [address] [place] [address] TOXICS PROGRAM OFFICER Gastroenterology 09/13/22 Marcello Ibanez MD [address] [place] [address] Fellow Gastroenterology 11/08/22 Labor Utilization Superintendent Relationship Specialty Start Date End Date Theo Burks MD [address] [place] [address] [place] [address] PCP - General Family Medicine 08/25/22 Abbey Alvarez MD [address] [place] [address] [place] [address] Fellow Gastroenterology 09/13/22 Saskia Madison, STRUCTURAL WORKER-RADIOCOMMUNICATIONS TECHNICIAN [address] [place] [address] [place] [address] TOXICS PROGRAM OFFICER Gastroenterology 09/13/22 Marcello Ibanez MD [address] [place] [address] Fellow Gastroenterology 11/08/22 Labor Utilization Superintendent Relationship Specialty Start Date End Date Theo Burks MD [address] [place] [address] [place] [address] PCP - General Family Medicine 08/25/22 Abbey Alvarez MD [address] [place] [address] [place] [address] Fellow Gastroenterology 09/13/22 Saskia Madison, STRUCTURAL WORKER-RADIOCOMMUNICATIONS TECHNICIAN [address] [place] [address] [place] [address] TOXICS PROGRAM OFFICER Gastroenterology 09/13/22 Marcello Ibanez MD [address] [place] [address] Fellow Gastroenterology 11/08/22 Labor Utilization Superintendent Relationship Specialty Start Date End Date Theo Burks MD [address] [place] [address] [place] [address] PCP - General Family Medicine 08/25/22 Abbey Alvarez MD [address] [place] [address] [place] [address] Fellow Gastroenterology 09/13/22 Saskia Madison APRN-DAYAMI [address] [place] [address] [place] [address] TOXICS PROGRAM OFFICER Gastroenterology 09/13/22 Marcello Ibanez MD [address] [place] [address] Fellow Gastroenterology 11/08/22 Labor Utilization Superintendent Relationship Specialty Start Date End Date Theo Burks MD [address] [place] [address] [place] [address] PCP - General Family Medicine 08/25/22 Abbey Alvarez MD [address] [place] [address] [place] [address] Fellow Gastroenterology 09/13/22 Saskia Madison APRN-RADIOCOMMUNICATIONS TECHNICIAN [address] [place] [address] [place] [address] TOXICS PROGRAM OFFICER Gastroenterology 09/13/22 Marcello Ibanez MD [address] [place] [id number] Fellow Gastroenterology 11/08/22 Labor Utilization Superintendent Relationship Specialty Start Date End Date Theo Burks MD [address] [place] [address] [place] [address] PCP - General Family Medicine 08/25/22 Abbey Alvarez MD [address] [place] [address] [place] [address] Fellow Gastroenterology 09/13/22 Saskia Madison APRN-RADIOCOMMUNICATIONS TECHNICIAN [address] [place] [address] [place] [address] TOXICS PROGRAM OFFICER Gastroenterology 09/13/22 Marcello Ibanez MD [address] [place] [id number] Fellow Gastroenterology 11/08/22 Labor Utilization Superintendent Relationship Specialty Start Date End Date Theo Burks MD [address] [place] [address] [place] [address] PCP - General Family Medicine 08/25/22 Abbey Alvarez MD [address] [place] [address] [place] [address] Fellow Gastroenterology 09/13/22 Saskia Madison APRN-RADIOCOMMUNICATIONS TECHNICIAN [address] [place] [address] [place] [address] TOXICS PROGRAM OFFICER Gastroenterology 09/13/22 Marcello Ibanez MD [address] [place] [id number] Fellow Gastroenterology 11/08/22 Labor Utilization Superintendent Relationship Specialty Start Date End Date Theo Burks MD [address] [place] [address] [place] [address] PCP - General Family Medicine 08/25/22 Abbey Alvarez MD [address] [place] [address] [place] [address] Fellow Gastroenterology 09/13/22 Saskia Madison APRN-RADIOCOMMUNICATIONS TECHNICIAN [address] [place] [address] [place] [address] TOXICS PROGRAM OFFICER Gastroenterology 09/13/22 Marcello Ibanez MD [address] [place] [address] Fellow Gastroenterology 11/08/22 Labor Utilization Superintendent Relationship Specialty Start Date End Date Theo Burks MD [address] [place] [address] [place] [address] PCP - General Family Medicine 08/25/22 Abbey Alvarez MD [address] [place] [address] [place] [address] Fellow Gastroenterology 09/13/22 Saskia Madison APRN-RADIOCOMMUNICATIONS TECHNICIAN [address] [place] [address] [place] [address] TOXICS PROGRAM OFFICER Gastroenterology 09/13/22 Marcello Ibanez MD [address] [place] [id number] Fellow Gastroenterology 11/08/22 Labor Utilization Superintendent Relationship Specialty Start Date End Date Theo Burks MD [address] [place] [address] [place] [address] PCP - General Family Medicine 08/25/22 Abbey Alvarez MD [address] [place] [address] [place] [address] Fellow Gastroenterology 09/13/22 Saskia Madison APRN-RADIOCOMMUNICATIONS TECHNICIAN [address] [place] [address] [place] [address] TOXICS PROGRAM OFFICER Gastroenterology 09/13/22 Marcello Ibanez MD [address] [place] [address] Fellow Gastroenterology 11/08/22 Labor Utilization Superintendent Relationship Specialty Start Date End Date Theo Burks MD [address] [place] [address] [place] [address] PCP - General Family Medicine 08/25/22 Abbey Alvarez MD [address] [place] [address] [place] [address] Fellow Gastroenterology 09/13/22 Saskia Madison APRN-RADIOCOMMUNICATIONS TECHNICIAN [address] [place] [address] [place] [address] TOXICS PROGRAM OFFICER Gastroenterology 09/13/22 Marcello Ibanez MD [address] [place] [id number] Fellow Gastroenterology 11/08/22 Labor Utilization Superintendent Relationship Specialty Start Date End Date Theo Burks MD [address] [place] [address] [place] [address] PCP - General Family Medicine 08/25/22 Abbey Alvarez MD [address] [place] [address] [place] [address] Fellow Gastroenterology 09/13/22 Saskia Madison APRN-RADIOCOMMUNICATIONS TECHNICIAN [address] [place] [address] [place] [address] TOXICS PROGRAM OFFICER Gastroenterology 09/13/22 Marcello Ibanez MD [address] [place] [id number] Fellow Gastroenterology 11/08/22 Labor Utilization Superintendent Relationship Specialty Start Date End Date Theo Burks MD [address] [facility] [place] [address] PCP - General Family Medicine 08/25/22 Abbey Alvarez MD [address] [place] [address] [place] [address] Fellow Gastroenterology 09/13/22 Saskia Madison, LIBAN-RADIOCOMMUNICATIONS TECHNICIAN [address] [place] [address] [place] [address] TOXICS PROGRAM OFFICER Gastroenterology 09/13/22 Marcello Ibanez MD [address] [place] [address] [place] [address] Fellow Gastroenterology 11/08/22 Labor Utilization Superintendent Relationship Specialty Start Date End Date Josiane Mccullough MD [address] [place] [address] PCP - General Family Medicine 07/18/13 Josiane Mccullough MD [address] [place] [address] 07/18/13 Labor Utilization Superintendent Relationship Specialty Start Date End Date Theo Burks MD [address] [place] [address] [place] [address] PCP - General Family Medicine 08/25/22 Abbey Alvarez MD [address] [place] [address] [place] [address] Fellow Gastroenterology 09/13/22 Saskia Madison STRUCTURAL WORKER-RADIOCOMMUNICATIONS TECHNICIAN [address] [place] [address] [place] [address] TOXICS PROGRAM OFFICER Gastroenterology 09/13/22 Marcello Ibanez MD [address] [place] [address] Fellow Gastroenterology 11/08/22 Labor Utilization Superintendent Relationship Specialty Start Date End Date Loreta Cummings APRN-RADIOCOMMUNICATIONS TECHNICIAN [address] [facility] [address] [place] [address] PCP - General Emergency Medicine 04/21/24 Labor Utilization Superintendent Relationship Specialty Start Date End Date Loreta Cummings APRN-RADIOCOMMUNICATIONS TECHNICIAN [address] [facility] [address] [place] [address] PCP - General Emergency Medicine 04/21/24 Labor Utilization Superintendent Relationship Specialty Start Date End Date Cristina Chung MD [address] [place] [id number] PCP - General Family Medicine 01/13/25 Evelio Carr DO [address] [place] [address] Referring Physician Pain Medicine 01/13/25 Labor Utilization Superintendent Relationship Specialty Start Date End Date Cristina Chung MD [address] [place] [phone] PCP - General Family Medicine 01/13/25 Evelio Carr DO [address] [place] [address] Referring Physician Pain Medicine 01/13/25 Source Comments (unrecognize d section and content) In the event this informatio n is protected by the [facility] [place] Confidentiality of Alcohol and Drug Abuse Patient Records regulations: The Federal rules restrict any use of the information to criminally investigate or prosecute any alcohol or drug abuse patient.[facility] (unrecognized sect ion and content) No [...] section and content) DATE CREATED AUTHOR 01/01/2024 [facility] DATE CREATED AUTHOR AUTHOR'S ORGANIZ ATION 02/21/2024 [facility] DATE CREATED AUTHOR AUTHOR'S ORGANIZ ATION 03/04/2024 [facility] DATE CREATED AUTHOR AUTHOR'S ORGANIZ ATION 03/05/2024 [facility] DATE CREATED AUTHOR AUTHOR'S ORGANIZ ATION 03/11/2024 [facility] DATE CREATED AUTHOR AUTHOR'S ORGANIZ ATION 04/11/2024 [facility] DATE CREATED AUTHOR AUTHOR'S ORGANIZ ATION 04/27/2024 [facility] DATE CREATED AUTHOR AUTHOR'S ORGANIZ ATION 05/07/2024 [facility] DATE CREATED AUTHOR AUTHOR'S ORGANIZ ATION 05/26/2024 [facility] DATE CREATED AUTHOR AUTHOR'S ORGANIZ ATION 05/27/2024 [facility] DATE CREATED AUTHOR AUTHOR'S ORGANIZ ATION 05/28/2024 [facility] DATE CREATED AUTHOR AUTHOR'S ORGANIZ ATION 06/01/2024 [facility] DATE CREATED AUTHOR AUTHOR'S ORGANIZ ATION 07/11/2024 [facility] DATE CREATED AUTHOR AUTHOR'S ORGANIZ ATION 07/13/2024 [facility] DATE CREATED AUTHOR AUTHOR'S ORGANIZ ATION 07/17/2024 [facility] DATE CREATED AUTHOR AUTHOR'S ORGANIZ ATION 08/20/2024 [facility] DATE CREATED AUTHOR AUTHOR'S ORGANIZ ATION 09/21/2024 [facility] DATE CREATED AUTHOR AUTHOR'S ORGANIZ ATION 09/24/2024 [facility] DATE CREATED AUTHOR AUTHOR'S ORGANIZ ATION 10/03/2024 [facility] DATE CREATED AUTHOR AUTHOR'S ORGANIZ ATION 11/13/2024 [facility] DATE CREATED AUTHOR AUTHOR'S ORGANIZ ATION 11/17/2024 [facility] DATE CREATED AUTHOR AUTHOR'S ORGANIZ ATION 11/22/2024 [facility] DATE CREATED AUTHOR AUTHOR'S ORGANIZ ATION 12/12/2024 [facility] DATE CREATED AUTHOR AUTHOR'S ORGANIZ ATION 12/20/2024 [facility] DATE CREATED AUTHOR AUTHOR'S ORGANIZ ATION 01/14/2025 [facility] DATE CREATED AUTHOR AUTHOR'S ORGANIZ ATION 01/25/2025 [facility] dical Specialists [facility] FOR RECORDS PERTAINING TO PATIENTS WHO ARE [...] BE BASED ON THE PRIMARY CLINICAL RECORDS. [facility] [employer] provides no warranty or guarantee of the accuracy or completeness of information in this document.
[2025-02-28] MEDS: CLINDAMYCIN PHOSPHATE/D5W 600 MG/50 ML PREMIX 100 MG IV (00:18)
[2025-02-28] MEDS: 0.9 % SODIUM CHLORIDE 1,000 ML 999 ML IV (00:18)
[2025-02-28 00:19] LABS: Hematocrit 37.9 % (42.0-54.0); Hemoglobin 13.5 g/dL (14.0-18.0); Mean Corpuscular HGB Conc 35.6 g/dL (29.9-35.2); Mean Corpuscular Hemoglobin 36.2 pg (25.9-34.0); Mean Corpuscular Volume 101.6 fL (80.0-94.0); Mean Platelet Volume 11.2 fL (9.5-13.5); Platelet Count 64 10^3/uL (150-450); Red Blood Count 3.73 10^6/uL (4.70-6.10); Red Cell Distribution Width 14.3 % (11.0-15.0)
[2025-02-28] MEDS: ONDANSETRON PF 4 MG/2 ML VIAL IV (00:29)
[2025-02-28 00:41] LABS: Alanine Aminotransferase 38 U/L (16-63); Albumin Globulin Ratio 0.8; Albumin Level 3.2 g/dL (3.4-5.0); Alkaline Phosphatase 175 U/L (46-116); Anion Gap 12.1; Aspartate Amino Transferase 48 U/L (15-37); Bilirubin Total 3.2 mg/dL (0.2-1.0); Calcium 9.1 mg/dL (8.5-10.1); Carbon Dioxide 27.9 mmol/L (21.0-32.0); Chloride 104 mmol/L (98-107); Estimated GFR (African America >60 (>=60 mL/min/1.73m^2); Estimated GFR (Non-African Ame >60 (>=60 mL/min/1.73m^2); Globulin 3.9 g/dL; Glucose 75 mg/dL (74-106); Magnesium 1.5 mg/dL (1.8-2.4); Sodium 140 mmol/L (136-145); Total Protein 7.1 g/dL (6.4-8.2)
[2025-02-28 00:43] LABS: Lactate/Lactic Acid 1.8 mmol/L (0.4-2.0)
[2025-02-28 00:46] LABS: Atypical Lymphocytes Abs Man 0.15; Lymphocytes Absolute Manual 0.65 10^3/uL (1.20-3.80); Monocytes Absolute Manual 0.05 10^3/uL (0.30-0.80); Segmented Neut Absolute Manual 4.05 10^3/uL (1.4-6.5)
[2025-02-28] MEDS: VANCOMYCIN HCL 1,000 MG in 0.9 % SODIUM CHLORIDE 250 ML 250 MG IV (01:16)
[2025-02-28] MEDS: HYDROMORPHONE HCL 0.5 MG/0.5 ML SYRINGE IV (01:17)
[2025-02-28] MEDS: ACETAMINOPHEN 500 MG TABLET 1000 MG PO (01:52)
--- OUTSIDE RECORDS SUMMARY | 2025-02-28 02:15 | XMS_ITS | CCD ---
Author Organization [facility] Inform ion Partnership [facility] [place] [facility] Care Team Providers Care Kindergarten Instructional Assistant Name Role Phone Link, Colby Bharat Primary Care Physician Unavailable Primary Care Provider Unavailabl e Unavailable Primary Care Provider Unavailabl e Unavailable Primary Care Provider Unavailabl e Theo Burks MD Primary Care Provider Abbey Alvarez MD Unavailable Gricelda SILVESTRE, Saskia Unavailable Theo Burks MD Primary Care Provider Abbey Alvarez MD Unavailable Gricelda SILVESTRE, Saskia Unavailable [phone] Marcello Ibanez MD Unavailable Gricelda SILVESTRE, Saskia Unavailable THEO BURKS Primary Care Physician Unavaila ble NONE, XXXX Primary Care Physician Unavailab Jarrod Nettles Unavailable Loreta Cummings Primary Care Physician [phone] Josiane Mccullough MD Primary Care Provider Josiane Mccullough MD Unavailable JOSIANE MCCULLOUGH Primary Care Unavailab MARGARET Justice Attending Unavailable Ella Gonzales Attending Unavailable Ella Gonzales Admitting Unavailable Loreta Cummings Referring Unavailable JERRELL GonzalesPCNP-BC Ella Polk Attending U navailable ELMER Gonzales-BC Ella Polk Admitting U navailable ABDI GonzalesNP-BC Ella Polk Attending U navailable JERRELL GonzalesPCNP-BC Ella Polk Admitting U navailable [place], [facility] Ella Polk Attending U navailable [place], [facility] Ella Polk Attending U navailable [place], [facility] Ella Polk Referring U navailable LORETA CUMMINGS Primary Care Unavailable SINDHU, MOHAMED F Admitting Unavailable SINDHU, MOHAMED F Attending Unavailable MAGED BOLTON Attending Unavailable LORETA CUMMINGS Primary Care Unavailable SINDHU, MOHAMED F Attending Unavailable SINDHU, MOHAMED F Referring Unavailable LORETA CUMMINGS Primary Care Unavailable Kavon Lu Attending Unavailable [...] Admitting Unavailable Loreta Cummings Primary Care Physician [phone] Kavon Lu Attending Unavailable Tabitha Kavon Admitting [...] Unavailable Juliet MULTANI, Cristina Primary Care Provider [phone] Evelio Carr DO Unavailable [phone] KENN HICKEY Attending Unavailable EVELIO CARR Referring [...] mechanism of action (substance) Drug allergy Unknown PixelFlow Other (20 sources) Perflutren; Translations: [perflutren] Drug [...] tab(s), Oral, Daily, 90 tab(s), Refill(s) 0, [id number], 170, cm, 04/29/24 9:16:00 EDT, Height/Length Dosing, 70.1, kg, 04/29/24 9:16:00 EDT, Weight Dosing Start Date: 04/29/24 Status: Ordered carvedilol 6.25 mg oral tablet (13 sources) alpha-Adrenergic Melvin, beta-Adrenergic Melvin Start: 10-05-2024 take 1 tablet by mouth twice daily Coreg 6.25 mg Tab 6.25 mg = 1 tab(s), Oral, BID, # 180 tab(s), Refills(s) 3, Pharmacy: [facility], 170, cm, 10/05/24 9:01:00 EST, Height/Length Dosing, 78.5, kg, 10/05/24 9:11:00 EST, Weight Dosing Start Date: 10/05/24 Status: Ordered Start: 06-09-2024 take 1 tablet by patricia twice daily Coreg 6.25 mg Tab 6.25 mg = 1 tab(s), Oral, BID, # 60 tab(s), Refills(s) 3, Pharmacy: [facility], 170, cm, 06/09/24 13:35:00 EDT, Height/Length Dosing, 74.2, kg, 06/09/24 13:35:00 EDT, Weight Dosing Start Date: 06/09/24 Status: Ordered cephalexin 500 mg oral capsule (9 sources) Cephalosporin Antibacterial Start: 09-21-2023 End: 09-26-2023 take 1 capsule by mouth every eight hours Keflex 500 mg Cap 500 mg = 1 cap(s), Oral, q8hr, X 5 day(s), # 15 cap(s), Refills(s) 0, [id number], 170, cm, 09/21/23 14:28:00 EST, Height/Length Dosing, [...] 12 cap(s), Refills(s) 1, [facility]: [facility][id number], 170, cm, 12/23/23 11:10:00 EDT, Height/Length Dosing, [...] 28 cap(s), Refills(s) 0, [facility]: [facility] #[id number], 170, cm, 02/18/23 7:51:00 EDT, Height/Length Dosing, [...] Daily, # 90 tab(s), Refills(s) 3, Pharmacy: [facility] #[id number], 170, cm, 04/29/24 9:16:00 EDT, Height/Length Dosing, [...] day(s), # 180 tab(s), Refills(s) 0, Pharmacy: [facility], 170, cm, 10/26/24 10:30:00 EST, Height/Length Dosing, 78.9, kg, 10/26/24 10:30:00 EST, Weight Dosing Start Date: 11/14/24 Stop Date: 12/14/24 Status: Ordered Start: 10-26-2024 gabapentin 300 mg Cap See Instructions, take per office provided instructions until you are taking 2 tablets three times per day, # 120 tab(s), Refills(s) 0, Pharmacy: [facility], 170, cm, 10/26/24 10:30:00 EST, Height/Length Dosing, 78.9, kg, 10/26/24 10:30:00 EST, Weight Dosing Start Date: 10/26/24 Status: Ordered Start: 07-24-2023 take 1 capsule by mo [facility] twice daily gabapentin 300 mg Cap 300 mg = 1 cap(s), Oral, BID, # 60 cap(s), Refills(s) 0, [facility]acy: [facility] #[id number], 170, cm, 07/24/23 7:59:00 EST, Height/Length Dosing, [...] DAILY, # 3,600 mL, Refills(s) 3, Pharmacy: [facility] #[id number], 170, cm, 05/12/24 15:39:00 EDT, Height/Length Dosing, 73, kg, 05/12/24 15:39:00 EDT, Weight Dosing Start Date: 05/31/24 Status: Ordered Start: 02-24-2024 take 20 g by mouth f our times daily lactulose 10 g/15 mL Oral Syrup 20 gm = 30 mL, Oral, QID, # 3,600 mL, Refills(s) 1, Pharmacy: [facility] #[id number], 170, cm, 01/27/24 9:52:00 EDT, Height/Length Dosing, 74.6, kg, 01/27/24 9:52:00 EDT, Weight Dosing Start Date: 02/24/24 Status: Ordered Start: 10-28-2023 take 20 g by mouth f our times daily lactulose 10 g/15 mL Oral Syrup 20 gm = 30 mL, Oral, QID, # 3,600 mL, Refills(s) 1, Pharmacy: [facility] #[id number], 160, cm, 10/28/23 9:43:00 EST, Height/Length Dosing, [...] patches if insurance coverage issue, [facility] #[id number], 170, cm, 08/26/23 9:52:00 EST, Height/Length Dosing, 68.5, kg, 08/26/23 9:52:00 EST, Weight Dosing Start Date: 08/26/23 Status: Ordered Start: 08-26-2023 apply 28.5 g topical ly twice daily lidocaine 3% topical gel See Instructions, 28.5 gm, Refill(s) 0, Topical BID apply a thin film to the affected areas may substitute for 2 % if this is not available, [facility] #[id number], 170, cm, 08/26/23 9:52:00 EST, Height/Length Dosing, [...] SPARINGLY, # 30 tab(s), Refills(s) 2, [id number], 170, cm, 05/12/24 15:39:00 EDT, Height/Length Dosing, 73, kg, 05/12/24 15:39:00 EDT, Weight Dosing Start Date: 05/23/24 Status: Ordered Start: 04-29-2024 take 1 tablet by patricia th once daily at mealtime meloxicam 7.5 mg Tab 7.5 mg = 1 tab(s), Oral, Daily, take with food and sparingly, # 30 tab(s), Refills(s) 0, [id number], 170, cm, 04/29/24 9:16:00 EDT, Height/Length Dosing, [...] Start Date: 07/24/23 Status: Ordered Start: 07-24-2023 [facility] DME Presc ription See Instructions, Woodruff SAP Dressing 4 x 4 dressing Start Date: 07/24/23 Status: Ordered Start: 07-24-2023 [facility] D[facility] Presc ription See Instructions, Muscle & joint balm CBD 880mg Start Date: 07/24/23 Status: Ordered [facility] Prescription (7 sources) Start: 07-24-2023 [facility] Prescription Bee Venom, Daily Start Date: 07/24/23 [...] symptoms, # 1 kit(s), Refills(s) 0, Pharmacy: [facility], 170, cm, 10/05/24 9:01:00 EST, Height/Length Dosing, 78.5, kg, 10/05/24 9:11:00 EST, Weight Dosing Start Date: 10/05/24 Status: Ordered Start: 10-28-2023 naloxone 4 mg/ actuation nasal spray (NARCAN) 1 Freeburn by nasal (alternating) route. 0 10/28/2023 Active Start: 10-28-2023 Narcan 4 mg/0. 1 mL nasal spray 4 mg, Nasal, As Directed, for suspected overdose symptoms, # 1 kit(s), Refills(s) 0, [id number], 160, cm, 10/28/23 9:43:00 EST, Height/Length Dosing, [...] Nausea, # 60 tab(s), Refills(s) 0, Pharmacy: [facility] #[id number], 170, cm, 05/12/24 15:39:00 EDT, Height/Length Dosing, 73, kg, 05/12/24 15:39:00 EDT, Weight Dosing Start Date: 05/31/24 Status: Ordered Start: 12-23-2023 take 1 tablet by patricia th three times daily as needed for nausea Zofran ODT 4 mg Tab 4 mg = 1 tab(s), Oral, TID, PRN Nausea, # 60 tab(s), Refills(s) 0, Pharmacy: [facility] #[id number], 170, cm, 12/23/23 11:10:00 EDT, Height/Length Dosing, 70.3, kg, 12/23/23 11:10:00 EDT, Weight Dosing Start Date: 12/23/23 Status: Ordered Start: 10-28-2023 take 1 tablet by patricia th three times daily as needed for nausea Zofran ODT 4 mg Tab 4 mg = 1 tab(s), Oral, TID, PRN Nausea, # 60 tab(s), Refills(s) 0, [id number], 160, cm, 10/28/23 9:43:00 EST, Height/Length Dosing, [...] only, # 28 tab(s), Refills(s) 0, Pharmacy: [facility], 170, cm, 10/05/24 9:01:00 EST, Height/Length [...] only, # 28 tab(s), Refills(s) 0, Pharmacy: [facility] #[id number], 170, cm, 01/27/24 9:52:00 EDT, Height/Length Dosing, 74.6, kg, 01/27/24 9:52:00 EDT, Weight Dosing Start Date: 01/27/24 Status: Ordered Start: 10-28-2023 take 0.5 tablet by m outh every six hours as needed for pain oxyCODONE 5 mg Tab 0.5 tab, Oral, q6hr, PRN for pain, for leg pain, # 28 tab(s), Refills(s) 0, [facility]: [facility][id number], 160, cm, 10/28/23 9:43:00 EST, Height/Length Dosing, [...] nausea/vomiting, # 30 tab(s), Refills(s) 0, Pharmacy: [facility] #[id number], 170, cm, 04/29/24 9:16:00 EDT, Height/Length Dosing, 70.1, kg, 04/29/24 9:16:00 EDT, Weight Dosing Start Date: 04/29/24 Status: Ordered spironolactone 50 mg oral tablet (20 sources) Aldosterone Antagonist Start: 11-21-2024 End: 11-16-2025 take 1 tablet by mouth once daily spironolactone 50 mg Tab 50 mg = 1 tab(s), Oral, Daily, X 90 day(s), # 90 tab(s), Refills(s) 3, Pharmacy: [facility], 170, cm, 11/21/24 9:32:00 EDT, Height/Length Dosing, 77.5, kg, 11/21/24 9:32:00 EDT, Weight Dosing Start Date: 11/21/24 Stop Date: 11/16/25 Status: Ordered Start: 01-20-2024 take 1 tablet by patricia th once daily spironolactone 50 mg Tab 50 mg = 1 tab(s), Oral, Daily, # 90 tab(s), Refills(s) 3, [id number], 170, cm, 12/23/23 11:10:00 EDT, Height/Length Dosing, [...] day(s), 28 tab(s), Refill(s) 0, [facility] #[id number], 170, cm, 03/22/23 20:14:00 EDT, Height/Length Dosing, [...] Start: 12-23-2023 take 1 capsule by mo [facility] twice daily ursodiol 300 mg Cap 300 mg = 1 cap(s), Oral, BID, # 60 cap(s), Refills(s) 1, [facility]: [facility] #[id number], 170, cm, 12/23/23 11:10:00 EDT, Height/Length Dosing, 70.3, kg, 12/23/23 11:10:00 EDT, Weight Dosing Start Date: 12/23/23 Status: Ordered Zofran ODT 4 mg Tab-Dis (20 sources) Start: 09-30-2023 take 1 tablet by mouth every eight hours as needed for nausea Zofran ODT 4 mg Tab-Dis 4 mg = 1 tab(s), Oral, q8hr, PRN Nausea/Vomiting, # 60 tab(s), Refills(s) 12, [facility]acy: [facility] #[id number], 170, cm, 09/30/23 9:19:00 EST, Height/Length Dosing, 69, kg, 09/30/23 9:19:00 EST, Weight Dosing Start Date: 09/30/23 Status: Ordered Start: 03-22-2023 take 1 tablet by [facility] every eight hours as needed for nausea Zofran ODT 4 mg Tab-Dis 4 mg = 1 tab(s), Oral, q8hr, PRN Nausea/Vomiting, # 20 tab(s), Refills(s) 0, Pharmacy: [facility] #[id number], 170, cm, 03/22/23 20:14:00 EDT, Height/Length Dosing, [...] 05/06/2022 Discontinued (Therapy completed) 168 hr cloNIDine 0.92223 mg/hr transdermal system (1 source) Central alpha-2 [...] 01-09-2022 2 mg, Oral, EVERY 2 HOURS [place] N, Starting on Thu01/08/22 at 1755, Until [...] tablet by mouth twice daily Potassium Chloride (Hzr-Uzjx-Vfj M20) 20 mEq oral tablet, extended release 20 mEq = 1 tab(s), Oral, BID, # 30 tab(s), Refills(s) 3, Pharmacy: [id number], 170, cm, 07/24/23 7:59:00 EST, Height/Length Dosing, 73.5, kg, 07/24/23 7:59:00 EST, Weight Dosing Start Date: 07/24/23 Status: Ordered Start: 11-14-2022 take 1 tablet by [facility] once daily potassium chloride SA (K-DUR) 20 [...] aftercare (4 sources) Antibiotic prophylaxis indicated; Translations: [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 research teacher (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) use of antibiotics] Episodic Other aftercare (5 sources) Drug therapy status; Translations: [Other fuel cell designer (current) drug therapy] Episodic Other aftercare (1 source) Long-term current use of drug therapy; Translations: [Other care home (current) drug therapy] Onset: 3 Episodic Other [...] Date Episodic/Chronic Other aftercare (1 source) Other fuel cell designer (current) drug therapy; Translations: [Other fuel cell designer (current) drug therapy] Onset: 10-01-2023 Episodic Other aftercare (1 source) survey research teacher (current) use of antibiotics; Translations: [halfway (current) use of antibiotics] Onset: 10-01-2023 Episodic [...] WILL RALPH/Sex: 1985 Male Med Rec #: [id number] Physician: Evelio Carr DO Financial #: [id number] Pt. Type: P Room/Bed: / Admit/Disch: 01/03/25 [...] Liu RN Role Performed Surgeon - Primary Repairer Maintenance Building - Primary Scrub - Primary Time In 01/03/25 11:40:00 01/03/25 11:40:00 01/03/25 11:40:00 Time Out 01/03/25 11:52:00 01/03/25 11:52:00 01/03/25 11:52:00 Procedure OTHER NERVE BLOCK(Right) OTHER NERVE BLOCK(Right) OTHER NERVE BLOCK(Right) Comments Last Modified By: Micky GREER, Ronda Weeks RN, Ronda West RN 01/03/25 11:51:19 01/03/25 11:51:19 01/03/25 11:51:19 Entry 4 Case Attendee Lisandra Sauer Role Performed Barmaid Time In 01/03/25 11:40:00 Time Out 01/03/25 [...] and tissue Entry 1 Skin Integrity Intact, [place], Warm, & Skin Abnormality No Dry Outcomes [...] injury rel (more content not included)... [facility] Main OR Preoperative Recordo n 01-03-2025 Main OR Preoperative Record Main OR Preoperative Record Holding Area Document Type FTPM Summary Primary Physician: Evelio Crar DO Finalized Date/Time: 01/03/25 10:50:35 Pt. Name: WILL RALPH./Sex: 1985 Male Med Rec #: [id number] Physician: Evelio Carr DO Financial #: [id number] Pt. Type: P Room/Bed: / Admit/Disch: 01/03/25 [...] By: Belén Huffman RN 01/03/25 10:50 [facility] Ambulatory Visit Summaryon 0 12-21-2024 Ambulatory Visit [...] 8:40 AM EDT With: Vic Carrion Where: [facility] [address], [facility] [place] [address] 2025 2:40 PM EST With: Kavon Lu DO Where: [facility] You Need to Schedule the Following Appointments Follow Up with Vic Carrion, [facility] When: Comments: as scheduled Where: [address] [facility] [address] [place] [phone] Medications What How Much When Why Instructions Unchanged carvedilol (Coreg 6.25 mg Tab) 1 Tablets By Mouth 2 times a day HTN (hypertension) Unchanged furosemide (furosemide 20 mg Tab) 1 Tablets By Mouth Every day as needed for Edema Unchanged magnesium citrate [facility] Mouth [facility] cuff device and appropriate size please) See instructions HTN (hypertension) BP Device/ machine and cuff (size appropriate) Unchanged Misc Prescription ([facility] D[facility] Prescription) See instructions Woodruff SAP Dressing 4 x 4 dressing Unchanged Misc Prescription ([facility] Prescription) See instructions LiquidIV hydration Unchanged Misc Prescription ([facility] Prescription) See instructions Muscle & joint balm CBD 880mg Unchanged naloxone (Narcan 4 mg/ 0.1 mL nasal spray) 4 Milligram Nasal Inhalation As Directed Pain for suspected overdose symptoms Pickup at [facility] Unchanged ondansetron (Zofran ODT 4 mg [...] leg pain- severe pain only Pickup at [facility] Unchanged spironolactone (spironolactone 50 mg Tab) 1 Tablets By Mouth Every day Duration: 90 Days Pharmacy Information [facility]: [address] [place], [place] [id number] [phone] Allergies Definity (Back Pain) amoxicillin (Unknown) penicillin [...] n (more content not included)... [facility] Family Medicine Office/Clini c Noteon 12-21-2024 Family [...] only, # 20 tab(s), Refills(s) 0, Pharmacy: [facility], 170, cm, 12/21/24 8:26:00 EDT, Height/Length [...] only, # 20 tab(s), Refills(s) 0, Pharmacy: [facility], 170, cm, 12/21/24 8:26:00 EDT, Height/Length Dosing, 77.2, kg, 12/21/24 8:33:00 EDT, Weight Dosing 6. Peripheral vascular disease (I73.9: Peripheral vascular disease, unspecified) see above. Ordered: oxycodone, 0.5 tab, Oral, q6hr, PRN for pain, for leg pain- severe pain only, # 20 tab(s), Refills(s) 0, Pharmacy: [facility], 170, cm, 12/21/24 8:26:00 EDT, Height/Length Dosing, 77.2, kg, 12/21/24 8:33:00 EDT, Weight Dosing Orders: naloxone, 4 mg, Nasal, As Directed, for suspected overdose symptoms, # 1 kit(s), Refills(s) 0, Pharmacy: [facility], 170, cm, 12/21/24 8:26:00 EDT, Height/Length Dosing, 77.2, kg, 12/21/24 8:33:00 EDT, Weight Dosing Total time spen (more content not included)... [facility] Comment on above: Result Comment: Elec tronically Signed By: Rachel ALBERTS, Vic Friedman\.br\Date and Time Signed: 12/21/24 09:05 EDT Reminderson 12-09-2024 Reminders Reminders From: Naty Garcia MA To: [facility] - Reminders/Recalls; Sent: 12/09/2024 11:32:43 EDT Show up: 10/08/2025 11:32:00 EST Subject: EGD recall Due Date/Time: 11/18/2025 11:32:00 EDT Reminder/Recall [address] Evans 11/18/24 [facility] MRI Spine Lumbar w/o Contras ton 11-28-2024 [...] Transcribed by: JUNIOR Technologist: JPD [facility] Ambulatory Visit Summaryon 0 11-21-2024 Ambulatory Visit [...] 8:40 AM EDT With: Vic Carrion Where: [facility] [address] [place] [address] 2:40 PM EST With: Kavon Lu DO Where: [facility] You Need to Schedule the Following Appointments Follow Up with Carrol MULTANI, Mario Xiong, [facility] When: In 3 months Where: [address], [address] [phone] You Need to Complete the Following CBC [...] Duration: 90 Days Refills: 3 Pickup at [facility] Unchanged carvedilol (Coreg 6.25 mg Tab) [...] Misc Prescription (Misc DME Prescription) See instructions Woodruff SAP Dressing 4 x 4 dressing Contact [...] physician if questions or concerns Pharmacy Information [facility]: [address] [place], [place] [phone] Allergies Definity (Back Pain) amoxicillin (Unknown) penicillin [...] 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 [facility] Gastroenterology Office/Clin ic Noteon 11-21-2024 Gastroenterology Office/Clinic [...] fL High (11/11/24) Chloride: 105 mmol/L (11/11/24) [place] Absolute: 0.4 E9/L (11/11/24) CO2: 27 mmol/L (11/11/24) [place] Auto: 9.7 % (11/11/24) Creatinine: 0.5 mg/dL [...] 2.5 years Liver biopsy was done at [facility], gradient was 14 mmHg Liver biopsy report [...] Mario Xiong, JOE, MED In [address] [place] [address] [place], [address] [phone] Additional Instructions: Problem List/Past Medical History Ongoing Abnormal stress test Alcohol use disorder in remission Anemia BMI 26.0-26.9,adult Cellulitis of right leg Cholelithiases Cirrhosis Dependent edema Diarrhea Elevated fasting glucose Elevated INR Elevated liver enzymes Epigastric pain Esophageal varices Headache Hemolytic anemia HTN (hypertension) Hypokalemia Iron deficiency anemia Liver cirrhosis, al (more content not included)... [facility] Comment on above: Result Comment: [...] WILL RALPH./Sex: 1985 Male Med Rec #: [id number] Physician: Mario Evans MD Financial #: [id number] Pt. Type: O Room/Bed: / Admit/Disch: 11/18/24 [...] Ware RN, Eve Do Role Performed Anesthesiologist Repairer Maintenance Building - Primary Scrub - Primary Modern Languages Professor Time In 11/18/24 08:54:00 11/18/24 08:54:00 11/18/24 [...] and tissue Entry 1 Skin Integrity Intact, [place], Warm, & Skin Abnormality No Dry Outcomes [...] Device Safet (more content not included)... [facility] Reminderson 11-21-2024 Reminders Reminders From: Grace Galaviz I To: [facility] - Reminders/Recalls; Sent: 11/21/2024 07:32:43 EDT Show up: 10/08/2025 07:32:00 EST Subject: EGD recall Due Date/Time: 11/18/2025 07:32:00 EDT Reminder/Recall [address] Evans 11/18/24 [facility] XR Spine Lumbosacral Minimum 4 Viewson 11-21-2024 [...] DO Transcribed by: JUNIOR Technologist: MICKI [facility] XR Foot 3+ Views Righton XR Foot [...] Gerson Barrera MD Transcribed by: JUNIOR Technologist: [facility] Ambulatory Visit Summaryon 0 11-18-2024 Ambulatory Visit [...] EDT With: Carrol MULTANI, Mario Xiong Where: [facility] [address] [facility] [facility] [address] [place] [address]- Thursday 8:40 AM EDT With: Vic Carrion Where: [facility] [address] [facility] [address] [place] [address]25 2:40 PM EST With: [...] Misc Prescription (Misc DME Prescription) See instructions Woodruff SAP Dressing 4 x 4 dressing Unchanged [...] for choosing us for your care. [facility] Discharge Instructionson Discharge Instructions Discharge Instructions WILL [...] EDT With: Carrol MULTANI, Mario Xiong Where: [facility] [address] [address]- Thursday 8:40 AM EDT With: Vic Carrion Where: [facility] [address] [facility], [place] [address]25 2:40 PM EST With: [...] Misc Prescription (Misc DME Prescription) See instructions Woodruff SAP Dressing 4 x 4 dressing Unchanged [...] have a (more content not included)... [facility] Comment on above: Result Comment: [...] with voice recognition software. Occasional wrong-word or ???[id number]??? substitutions may have occurred due to the [...] feels he needs further pain medication than [id number] prescribed he needs to reach out to [...] Follow-up With When Contact Information Vic Carrion, [facility], MED Additional Instructions: Patient Education How [...] Megaloblastic anem (more content not included)... [facility] Comment on above: Result Comment: Elec tronically Signed By: Harshad PARKER, Keith Underwood\.br\Date and Time Signed: 11/18/24 18:59 EDT Inpatient Patient Summaryon 11-18-2024 Inpatient Patient Summary Inpatient Patient Summary [place] [address] [facility] Clinical Discharge Instructions PERSON INFORMATION Name: WILL RALPH [facility] Admitting Physician: Mario Evans MD Attending Physician: Mario Evans MD PCP: Vic Carrion Discharge Diagnosis: Cirrhosis Comment: PATIENT EDUCATION INFORMATION Instructions: Medication Leaflets: Follow up: Type Location Start Finish State Pain Management - Follow Up (FT) [facility] [place] 11/21/2024 8:30 AM 11/21/2024 8:45 AM Confirmed B[facility] Follow Up [facility] 11/21/2024 9:15 AM 11/21/2024 9:30 AM Confirmed [facility] 04/07/2025 8:40 AM 04/07/2025 9:00 [...] Refills: 0. Misc Prescription (Misc DME Prescription) Woodruff SAP Dressing 4 x 4 dressing. Misc [...] Mouth every day. Refills: 3. Comment: [facility] Main OR PACU II Recordon Main OR PACU II Record Main OR PACU II Record PACU Phase II Document Type FT Summary Primary Physician: Mario Evans MD Finalized Date/Time: 11/18/24 09:24:26 Pt. Name: WILL RALPH/Sex: 1985 Male Med Rec #: [id number] Physician: Mario Evans MD Financial #: [id number] Pt. Type: O Room/Bed: / Admit/Disch: 11/18/24 [...] Bhumika Campos RN 11/18/24 09:24 [facility] Main OR Preoperative Recordo n 11-18-2024 Main OR Preoperative Record Main [place] Preoperative Record Holding Area Document Type FT Summary Primary Physician: Mario Evans MD Finalized Date/Time: 11/18/24 08:25:00 Pt. Name: WILL RALPH/Wesley: 1985 Male Med Rec #: [id number] Physician: Mario Evans MD Financial #: [id number] Pt. Type: O Room/Bed: / Admit/Disch: 11/18/24 [...] By: Alondra Lopez RN 11/18/24 08:25 Normal [facility] Outpatient Surgery Discharge Instructionon 11-18-2024 Outpatient Surgery Discharge Instruction Outpatient Surgery Discharge Instruction [address] [address] Patient Discharge Instructions PERSON INFORMATION [...] Management - Follow Up (FT) FT.Pain Mgmt Malo 11/21/2024 8:30 AM 11/21/2024 8:45 AM Confirmed [facility] Follow Up [facility] 11/21/2024 9:15 AM 11/21/2024 9:30 AM Confirmed FM Open [facility] 04/07/2025 8:40 AM 04/07/2025 9:00 [...] to serve you. Thank you for choosing [facility] HERE ARE THE MEDICATION CHANGES [...] cuff (size appropriate). Refills: 0. Misc Prescription ([facility] Prescription) Woodruff SAP Dressing 4 x 4 dressing. Misc Prescription ([facility] Prescription) LiquidIV hydration. Misc Prescription ([facility] Prescription) Muscle & joint balm CBD [...] PATIENT EDUCATION INFORMATION Instructions: Medication Leaflets: Normal [facility] AFPon 11-12-2024 AFP.tumor marker [Mass/Vol] 4.3 ng/mL Invalid Interpretation Code 0.0-6.9 [facility] Comment on above: Result Comment: [employer] Electrochemiluminescence Immunoassay (ECLIA) Values obtained with different assay methods or kits cannot be used interchangeably. Results cannot be interpreted as absolute evidence of the presence or absence of malignant disease. This test is not interpretable in females. Performed at: [address] [id number] PhD Poncho Prater Performed By: #### 2 [id number] ####[facility] [address] [place] [address] CBC w/ Auto Diffon 5 Basophils/100 WBC (Bld) 0.9 % Normal 0.0-2.0 [facility] Comment on above: Performed By: #### 2 [id number] #### [facility] [address] [place] [address] Basophils/Leukocytes Auto (Bld) [Pure # fraction] 0.0 E9/L Normal 0.0-0.2 [facility] Comment on above: Performed By: #### 2 [id number] #### [facility] [address] [place] [address] Eosinophils (Bld) [#/Vol] 0.2 E9/L Normal 0.0-0.5 [facility] Comment on above: Performed By: #### 2 [id number] #### [facility] [address] [place] [address] Eosinophils/100 WBC (Bld) 4.2 % Normal 0.0-8.0 [facility] Comment on above: Performed By: #### 2 [id number] #### [facility] [address] [place] [address] Erythrocyte distribution width (RBC) [Ratio] 15.3 % High 10.9-14.2 [facility] Comment on above: Performed By: #### 2 [id number] #### [facility] [address] [place] [address] Hematocrit (Bld) [Volume fraction] 41.8 % Normal 37.7-49.0 [facility] Comment on above: Performed By: #### 2 [id number] #### [facility] [address] [place] [address] Hemoglobin (Bld) [Mass/Vol] 14.5 g/dL Normal 13.5-17.5 [facility] Comment on above: Performed By: #### 2 095675 #### [facility] [address] [place] [address] Lymphocytes (Bld) [#/Vol] 1.0 E9/L Normal 1.0-4.0 [facility] Comment on above: Performed By: #### 2 278017 #### [facility] [address] [place] [address] Lymphocytes/100 WBC (Bld) 22.4 % Normal 14.0-50.0 [facility] Comment on above: Performed By: #### 2 741027 #### [facility] [address] [place] [address] MCH (RBC) [Entitic mass] 36.4 pg High 27.0-34.0 [facility] Comment on above: Performed By: #### 2 146664 #### [facility] [address] [place] [address] MCHC (RBC) [Mass/Vol] 34.7 g/dL Normal 31.4-36.0 [facility] Comment on above: Performed By: #### 2 257176 #### [facility] [address] [place] [address] MCV (RBC) [Entitic vol] 104.7 fL High 80.0-100.0 [facility] Comment on above: Performed By: #### 2 822380 #### [facility] [address] [place] [address] Monocytes (Bld) [#/Vol] 0.4 E9/L Normal 0.2-1.0 [facility] Comment on above: Performed By: #### 2 336264 #### [facility] [address] [place] [address] Neutrophils (Bld) [#/Vol] 2.8 E9/L Normal 2.0-7.5 [facility] Comment on above: Performed By: #### 2 [id number] #### [facility] [address] [place] [address] Neutrophils/100 WBC (Bld) 62.8 % Normal 36.0-75.0 [facility] Comment on above: Performed By: #### 2 250476 #### [facility] [address] [place] [address] Platelet 84.0 E9/L Low 150.0-500.0 [facility] Comment on above: Performed By: #### 2 075695 #### [facility] [address] [place] [address] Platelet mean volume (Bld) [Entitic vol] 8.2 fL Normal 6.4-10.8 [facility] Comment on above: Performed By: #### 2 204441 #### [facility] [address] [place] [address] RBC (Bld) [#/Vol] 4.0 E12/L Low 4.3-5.9 [facility] Comment on above: Performed By: #### 2 150519 #### [facility] [address] [place] [address] WBC corrected for nucl RBC Auto (Bld) [#/Vol] 4.4 E9/L Normal 4.0-11.0 [facility] Comment on above: Performed By: #### 2 887524 #### [facility] [address] [place] [address] CMPon 11-11-2024 Albumin [Mass/Vol] 3.6 g/dL Normal 3.3-5.0 [facility] Comment on above: Performed By: #### 2 379151 #### [facility] [address] [place] [address] Albumin/Globulin (S) [Mass conc ratio] 1.0 Low 1.1-2.2 [facility] Comment on above: Performed By: #### 2 385677 #### [facility] [address] [place] [address] ALP [Catalytic activity/Vol] 159 Int._Unit/L High 21-98 [facility] Comment on above: Performed By: #### 2 648341 #### [facility] [address] [place] [address] ALT No additional P-5'-P [Catalytic activity/Vol] 46 Int._Unit/L Normal 6-46 [facility] Comment on above: Performed By: #### 2 846271 #### [facility] [address] [place] [address] Anion gap [Moles/Vol] 8 mmol/L Normal 6-16 [facility] Comment on above: Performed By: #### 2 122365 #### [facility] [address] [place] [address] AST [Catalytic activity/Vol] 59 Int._Unit/L High 5-43 [facility] Comment on above: Performed By: #### 2 456259 #### [facility] [address] [place] [address] Bilirubin [Mass/Vol] 2.6 mg/dL High 0.0-1.1 [facility] Comment on above: Performed By: #### 2 844915 #### [facility] [address] [place] [address] Calcium [Mass/Vol] 9.0 mg/dL Normal 8.9-11.1 [facility] Comment on above: Performed By: #### 2 488761 #### [facility] [address] [place] [address] Chloride [Moles/Vol] 105 mmol/L Normal 101-111 [facility] Comment on above: Performed By: #### 2 930744 #### [facility] [address] [place] [address] CO2 [Moles/Vol] 27 mmol/L Normal 21-31 [facility] Comment on above: Performed By: #### 2 470498 #### [facility] [address] [place] [address] Creatinine [Mass/Vol] 0.5 mg/dL Normal 0.5-1.3 [facility] Comment on above: Performed By: #### 2 796285 #### [facility] [address] [place] [address] Globulin (S) [Mass/Vol] 3.5 g/dL Normal 1.4-4.0 [facility] Comment on above: Performed By: #### 2 231129 #### [facility] [address] [place] [address] Glucose [Mass/Vol] 96 mg/dL Normal 55-199 [facility] Comment on above: Performed By: #### 2 250221 #### [facility] [address] [place] [address] Potassium [Moles/Vol] 4.4 mmol/L Normal 3.5-5.3 [facility] Comment on above: Performed By: #### 2 032040 #### [facility] [address] [place] [address] Protein [Mass/Vol] 7.1 g/dL Normal 6.0-7.8 [facility] Comment on above: Performed By: #### 2 861138 #### [facility] [address] [place] [address] Sodium [Moles/Vol] 136 mmol/L Normal 135-145 [facility] Comment on above: Performed By: #### 2 372401 #### [facility] [address] [place] [address] Urea nitrogen [Mass/Vol] 12 mg/dL Normal 5-21 [facility] Comment on above: Performed By: #### 2 585039 #### [facility] [address] [place] [address] Urea nitrogen/Creatinine [Mass ratio] 24 No Units High 10-20 [facility] Comment on above: Performed By: #### 2 677263 #### [facility] [address] [place] [address] PT & PTTon 11-11-2024 aPTT Coag (PPP) [Time] 38.8 second(s) High 25.1-36.5 [facility] Comment on above: Result Comment: Para meter [...] the same coagulation reagent and instrumentation as [facility] Currently there are no coagulation studies available worldwide for children to 14 days, and no normal ranges. Heparin therapeutic range (represented by Anti-Factor Xa activity of 0.2 - 0.4 U/mL) corresponds to PTT of 56.6 - 109.0 sec. Performed By: #### 1 [id number] #### [facility] [address] [place] [address] INR Coag (PPP) [Relative time] 1.33 {INR} Invalid Interpretation Code [facility] Comment on above: Result Comment: INR results are specifically intended to assess patients stabilized on long-term Anticoagulation therapy suggested INR???s ???Less Intensive Anticoagulation??? 2.0 ??? 3.0 Conventional Range 3.0 ??? 4.5 Performed By: #### 1 [id number] #### [facility] [address] [place] [address] PT Coag (PPP) [Time] 14.9 second(s) High 9.4-12.5 [facility] Comment on above: Result Comment: 15 d [...] the same coagulation reagent and instrumentation as [facility] Currently there are no coagulation studies available worldwide for children to 14 days, and no normal ranges. Performed By: #### 1 [id number] #### [facility] [address] [place] [address] Liveron 11-11-2024 US Liver Exam Date/Time: 11/11/2024 [...] MD Transcribed by: JUNIOR Technologist: LEONARDA Normal [facility] eGFRon 11-11-2024 eGFR 132 mL/min/1.73 m2 Normal >=59 [facility] Comment on above: Performed By: #### 1 [id number] #### [facility] [address] [place] [address] Ambulatory Visit Summaryon 0 10-05-2024 Ambulatory Visit Summary Ambulatory Visit Summary WILL RALPH :1985 Visit Date:10/05/2024 Ambulatory Visit Instructions Your Diagnosis Cirrhosis HTN (hypertension) Liver cirrhosis, alcoholic Esophageal varices Thrombocytopenia Anemia Right leg pain BMI 27.0-27.9,adult Overweight Leg pain Pain Peripheral vascular disease Your Care Team Attending Physician - Vic Carrion Primary Care Physician - iVc Carrion This Is Your Medications List Misc [...] EDT With: Carrol MULTANI, Mario Xiong Where: [facility] [address] [facility] [address] [facility] [place] [address] [place] [address]- Thursday 8:40 AM EDT With: Vic Carrion Where: [facility] [address], [place] [address] 2:40 PM EST With: Kavon Lu DO Where: [facility] You Need to Schedule the Following Appointments Follow Up with Vic Carrion, [facility], [facility] When: In 6 months Comments: sooner if needed. keep specialists appointments. Where: [address], [address] [facility] [address] [place] [phone] Medications What How Much When Why Instructions Unchanged carvedilol (Coreg 6.25 mg Tab) 1 Tablets By Mouth 2 times a day HTN (hypertension) Pickup at [facility] Unchanged furosemide (furosemide 20 mg Tab) 1 Tablets By Mouth Every day Unchanged magnesium citrate By Mouth Unchanged Misc Prescription (BP cuff device and appropriate size please) See instructions HTN (hypertension) BP Device/ machine and cuff (size appropriate) Unchanged Misc Prescription (lactulose (lactulose 10 g/ 15 mL Oral Syrup)) 0 Unchanged Misc Prescription (Misc DME Prescription) See instructions Woodruff SAP Dressing 4 x 4 dressing Unchanged Misc Prescription (Misc DME Prescription) See instructions LiquidIV hydration Unchanged Misc Prescription (Misc DME Prescription) See instructions Muscle & joint balm CBD 880mg Unchanged naloxone (Narcan 4 mg/ 0.1 mL nasal spray) 4 Milligram Nasal Inhalation As Directed Pain for suspected overdose symptoms Pickup at [facility] Unchanged ondansetron (Zofran ODT 4 mg Tab) 1 Tablets By Mouth 3 times a day as needed for Nausea Nausea Unchanged oxycodone (oxyCODONE 5 mg Tab) 0.5 tab By Mouth Every 6 hours as needed for for pain Peripheral vascular disease Leg pain for leg pain- severe pain only Pickup at [facility] Unchanged spironolactone (spironolactone 50 mg Tab) 1 Tablets By Mouth Every day Pharmacy Information [facility]: [address] [place], [place] [id number] [phone] Allergies Definity (Back Pain) amoxicillin (Unknown) penicillin [...] experience wi (more content not included)... Normal [facility] Family Medicine Office/Clini c Noteon 10-05-2024 Family [...] states he saw a vascular doctor in [place] from when he was at [facility]. 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 He denies numbness and tingling. He [...] cellulitis Patient went to a specialist in [place]- Vascular Dr Bertrand - Angiogram was done, [...] with hematology.- [facility] Liver enzymes are elevated with recent lab work but trends up and down. patient has stopped (more content not included)... Normal [facility] Comment on above: Result Comment: Elec tronically Signed By: Vic Carrion\.br\Date and Time Signed: 10/05/24 09:53 EST Free K+L Lt Chains,Qn,Son Immunoglobulin light chains.kappa.free (S) [Mass/Vol] 21.1 mg/L High 3.3-19.4 [facility] Comment on above: Performed By: #### 2 [id number] #### [facility] [address] [place] [address] Immunoglobulin light chains.kappa.free/Im munoglobulin light chains.lambda.free (S) [Mass ratio] 1.50 Invalid Interpretation Code 0.26-1.65 [facility] Comment on above: Result Comment: Perf ormed at: [facility] [address] [id number] PhD Poncho Prater Performed By: #### 2 [id number] #### [facility] [address] [place] [address] Immunoglobulin light chains.lambda.free [Mass/Vol] 14.1 mg/L Invalid Interpretation Code 5.7-26.3 [facility] Comment on above: Performed By: #### 2 [id number] #### [facility] [address] [place] [address] Haptoglobinon 09-20-2024 Haptoglobin [Mass/Vol] mg/dL Low 17-317 [facility] Comment on above: Result Comment: Perf ormed at: [facility] [address] [id number] PhD Famisaiahcharmaine Prater Performed By: #### 2 [id number] #### [facility] [address] [place] [address] MELLISA and PE, Serumon 09-20-19 25 Albumin [Mass/Vol] 3.4 g/dL Invalid Interpretation Code 2.9-4.4 [facility] Comment on above: Performed By: #### 1 [id number] #### [facility] [address] [place] [address] Albumin/Globulin [Mass ratio] 1.0 {ratio} Invalid Interpretation Code 0.7-1.7 [facility] Comment on above: Performed By: #### 1 [id number] #### [facility] [address] [place] [address] Alpha 1 globulin Elph [Mass/Vol] 0.2 g/dL Invalid Interpretation Code 0.0-0.4 [facility] Comment on above: Performed By: #### 1 [id number] #### [facility] [address] [place] [address] Alpha 2 globulin Elph [Mass/Vol] 0.5 g/dL Invalid Interpretation Code 0.4-1.0 [facility] Comment on above: Performed By: #### 1 [id number] #### [facility] [address] [place] [address] Beta globulin Elph [Mass/Vol] 1.0 g/dL Invalid Interpretation Code 0.7-1.3 [facility] Comment on above: Performed By: #### 1 [id number] #### [facility] [address] [place] [address] Gamma globulin Elph [Mass/Vol] 1.9 g/dL High 0.4-1.8 [facility] Comment on above: Performed By: #### 1 [id number] #### [facility] [address] [place] [address] Globulin (S) [Mass/Vol] 3.7 g/dL Invalid Interpretation Code 2.2-3.9 [facility] Comment on above: Performed By: #### 1 [id number] #### [facility] [address] [place] [address] IgA [Mass/Vol] 653 mg/dL High 90-386 [facility] Comment on above: Performed By: #### 1 [id number] #### [facility] [address] [place] [address] IgG [Mass/Vol] 1726 mg/dL High 603-1613 [facility] Comment on above: Performed By: #### 1 [id number] #### [facility] [address] [place] [address] IgM [Mass/Vol] 72 mg/dL Invalid Interpretation Code 20-172 [facility] Comment on above: Performed By: #### 1 4323532 #### [facility] [address] [place] [address] Interpretation IEP [Interp] Comment Invalid Interpretation Code [facility] Comment on above: Result Comment: No m onoclonality detected. Performed By: #### 1 [id number] #### [facility] [address] [place] [address] Laboratory comment Parth (Report) Comment Invalid Interpretation Code [facility] Comment on above: Result Comment: Prot ein electrophoresis scan will follow via computer, mail, or office technician delivery. Performed at: [address] [id number] PhD Poncho Prater Performed By: #### 1 [id number] #### [facility] [address] [place] [address] Protein [Mass/Vol] 7.1 g/dL Invalid Interpretation Code 6.0-8.5 [facility] Comment on above: Performed By: #### 1 [id number] #### [facility] [address] [place] [address] Protein.monoclonal Elph [Mass/Vol] Not Observed Invalid Interpretation Code Not Observed [facility] Comment on above: Performed By: #### 1 [id number] #### [facility] [address] [place] [address] CBC w/ Auto Diffon 5 Basophils/100 WBC (Bld) 0.6 % Normal 0.0-2.0 [facility] Comment on above: Performed By: #### 2 736151 #### [facility] [address] [place] [address] Basophils/Leukocytes Auto (Bld) [Pure # fraction] 0.0 E9/L Normal 0.0-0.2 [facility] Comment on above: Performed By: #### 2 195261 #### [facility] [address] [place] [address] Eosinophils (Bld) [#/Vol] 0.2 E9/L Normal 0.0-0.5 [facility] Comment on above: Performed By: #### 2 394807 #### [facility] [address] [place] [address] Eosinophils/100 WBC (Bld) 3.5 % Normal 0.0-8.0 [facility] Comment on above: Performed By: #### 2 622876 #### [facility] [address] [place] [address] Erythrocyte distribution width (RBC) [Ratio] 15.1 % High 10.9-14.2 [facility] Comment on above: Performed By: #### 2 270788 #### [facility] [address] [place] [address] Hematocrit (Bld) [Volume fraction] 38.8 % Normal 37.7-49.0 [facility] Comment on above: Performed By: #### 2 405166 #### [facility] [address] [place] [address] Hemoglobin (Bld) [Mass/Vol] 13.9 g/dL Normal 13.5-17.5 [facility] Comment on above: Performed By: #### 2 005018 #### [facility] [address] [place] [address] Lymphocytes (Bld) [#/Vol] 1.1 E9/L Normal 1.0-4.0 [facility] Comment on above: Performed By: #### 2 489313 #### [facility] [address] [place] [address] Lymphocytes/100 WBC (Bld) 25.0 % Normal 14.0-50.0 [facility] Comment on above: Performed By: #### 2 324171 #### [facility] [address] [place] [address] MCH (RBC) [Entitic mass] 37.0 pg High 27.0-34.0 [facility] Comment on above: Performed By: #### 2 631854 #### [facility] [address] [place] [address] MCHC (RBC) [Mass/Vol] 35.8 g/dL Normal 31.4-36.0 [facility] Comment on above: Performed By: #### 2 786917 #### [facility] [address] [place] [address] MCV (RBC) [Entitic vol] 103.5 fL High 80.0-100.0 [facility] Comment on above: Performed By: #### 2 490251 #### [facility] [address] [place] [address] Monocytes (Bld) [#/Vol] 0.4 E9/L Normal 0.2-1.0 [facility] Comment on above: Performed By: #### 2 293682 #### [facility] [address] [place] [address] Neutrophils (Bld) [#/Vol] 2.8 E9/L Normal 2.0-7.5 [facility] Comment on above: Performed By: #### 2 475325 #### [facility] [address] [place] [address] Neutrophils/100 WBC (Bld) 62.7 % Normal 36.0-75.0 [facility] Comment on above: Performed By: #### 2 608186 #### [facility] [address] [place] [address] Platelet 93.0 E9/L Low 150.0-500.0 [facility] Comment on above: Result Comment: Tierney pheral smear review performed. Performed By: #### 2 893042 #### [facility] [address] [place] [address] Platelet mean volume (Bld) [Entitic vol] 7.7 fL Normal 6.4-10.8 [facility] Comment on above: Performed By: #### 2 450494 #### [facility] [address] [place] [address] RBC (Bld) [#/Vol] 3.7 E12/L Low 4.3-5.9 [facility] Comment on above: Performed By: #### 2 161296 #### [facility] [address] [place] [address] WBC corrected for nucl RBC Auto (Bld) [#/Vol] 4.5 E9/L Normal 4.0-11.0 [facility] Comment on above: Performed By: #### 2 077236 #### [facility] [address] [place] [address] CHEMISTRYOrdered By: SYSTEM SYSTEM on 09-16-2024 Albumin [...] 09-16-2024 Albumin [Mass/Vol] 3.7 g/dL Normal 3.3-5.0 [facility] Comment on above: Performed By: #### 2 619594 #### [facility] [address] [place] [address] Albumin/Globulin (S) [Mass conc ratio] 1.0 Low 1.1-2.2 [facility] Comment on above: Performed By: #### 2 906740 #### [facility] [address] [place] [address] ALP [Catalytic activity/Vol] 178 Int._Unit/L High 21-98 [facility] Comment on above: Performed By: #### 2 713524 #### [facility] [address] [place] [address] ALT No additional P-5'-P [Catalytic activity/Vol] 49 Int._Unit/L High 6-46 [facility] Comment on above: Performed By: #### 2 [id number] #### [facility] [address] [place] [address] Anion gap [Moles/Vol] 10 mmol/L Normal 6-16 [facility] Comment on above: Performed By: #### 2 673038 #### [facility] [address] [place] [address] AST [Catalytic activity/Vol] 72 Int._Unit/L High 5-43 [facility] Comment on above: Performed By: #### 2 368260 #### [facility] [address] [place] [address] Bilirubin [Mass/Vol] 5.2 mg/dL High 0.0-1.1 [facility] Comment on above: Performed By: #### 2 808635 #### [facility] Laboratory [address] [place] [address] Calcium [Mass/Vol] 9.4 mg/dL Normal 8.9-11.1 [facility] Comment on above: Performed By: #### 2 [id number] #### [facility] [address] [place] [address] Chloride [Moles/Vol] 100 mmol/L Low 101-111 [facility] Comment on above: Performed By: #### 2 [id number] #### [facility] [address] [place] [address] CO2 [Moles/Vol] 28 mmol/L Normal 21-31 [facility] Comment on above: Performed By: #### 2 592249 #### [facility] [address] [place] [address] Creatinine [Mass/Vol] 0.5 mg/dL Normal 0.5-1.3 [facility] Comment on above: Performed By: #### 2 670706 #### [facility] [address] [place] [address] Globulin (S) [Mass/Vol] 3.7 g/dL Normal 1.4-4.0 [facility] Comment on above: Performed By: #### 2 136786 #### [facility] [address] [place] [address] Glucose [Mass/Vol] 125 mg/dL Normal 55-199 [facility] Comment on above: Performed By: #### 2 912509 #### [facility] [address] [place] [address] Potassium [Moles/Vol] 4.1 mmol/L Normal 3.5-5.3 [facility] Comment on above: Performed By: #### 2 935605 #### [facility] [address] [place] [address] Protein [Mass/Vol] 7.4 g/dL Normal 6.0-7.8 [facility] Comment on above: Performed By: #### 2 104680 #### [facility] [address] [place] [address] Sodium [Moles/Vol] 134 mmol/L Low 135-145 [facility] Comment on above: Performed By: #### 2 233779 #### [facility] [address] [place] [address] Urea nitrogen [Mass/Vol] 9 mg/dL Normal 5-21 [facility] Comment on above: Performed By: #### 2 559971 #### [facility] [address] [place] [address] Urea nitrogen/Creatinine [Mass ratio] 18 No Units Normal 10-20 [facility] Comment on above: Performed By: #### 2 745743 #### [facility] [address] [place] [address] Ferritinon 09-16-2024 Ferritin [Mass/Vol] 343 ng/mL High 24-336 [facility] Comment on above: Performed By: #### 2 535747 #### [facility] [address] [place] [address] HEMATOLOGYOrdered By: SYSTEM SYSTEM on 09-16-2024 Basophils/100 [...] 09-16-2024 Iron [Mass/Vol] 279 microgram/dL High 35-153 [facility] Comment on above: Performed By: #### 2 821308 #### [facility] [address] [place] [address] Iron Saturationon 09-16-2024 Iron binding capacity [Mass/Vol] 294 microgram/dL Normal 250-400 [facility] Comment on above: Performed By: #### 2 893200 #### [facility] [address] [place] [address] Iron saturation [Mass fraction] 95 % High 20-50 [facility] Comment on above: Performed By: #### 2 792268 #### [facility] [address] [place] [address] LDHon 09-16-2024 LDH 278 Int._Unit/L High 93-218 [facility] Comment on above: Performed By: #### 2 389909 #### [facility] [address] [place] [address] Transferrinon 09-16-2024 Transferrin [Mass/Vol] 210 mg/dL Normal 200-370 [facility] Comment on above: Order Comment: Trans rojas order added by Discern Rule: gl_ftmc_add_iron_trans . Performed By: #### 2 [id number] #### [facility] [address] [place] [address] eGFRon 09-16-2024 eGFR 132 mL/min/1.73 m2 Normal >=59 [facility] Comment on above: Performed By: #### 1 [id number] #### [facility] [address] [place] [address] Ambulatory Visit Summaryon 1 10-20-2023 Ambulatory Visit [...] Oncology Thursday 8:15 AM EDT With: Where: [facility] Thursday 9:15 AM EDT With: Carrol MULTANI, Mario Xiong Where: [facility] [address] [place] [address] [address] [place] [address]- You Need to Complete the Following Ammonia [...] Misc Prescription (Misc DME Prescription) See instructions [employer] Dressing 4 x 4 dressing Contact [...] (Back Pain (more content not included)... Normal [facility] Family Medicine Office/Clini c Noteon 08-19-2024 Family [...] with hematology.- he has since stopped seeing [facility] Hepatology patient patient has stopped taking his [...] Daily, # 90 tab(s), Refills(s) 3, Pharmacy: [id number], 170, cm, 04/29/24 9:16:00 EDT, Height/Length Dosing, 70.1, kg, 04/29/24 9:16:00 EDT, Weight Dosing Ammonia Level 3. Esophageal varices (I85.00: Esophageal varices without bleeding) Continue to follow with Dr. Evans, encouraged good blood pressure control, avoiding any alcohol or esophageal irritation, continue to monitor platelets for signs of bleeding 4. HTN (hypertension) (I10: Essential (primary) hypertension) Bloo (more content not included)... Normal [facility] Comment on above: Result Comment: Elec tronically Signed By: Loreta Padilla\bryan\Date and Time Signed: 08/19/24 17:26 EST CBC w/ Auto Diffon 4 Basophils/100 WBC (Bld) 0.9 % Normal 0.0-2.0 [facility] Comment on above: Performed By: #### 2 [id number] #### [facility] [address] [place] [address] Basophils/Leukocytes Auto (Bld) [Pure # fraction] 0.0 E9/L Normal 0.0-0.2 [facility] Comment on above: Performed By: #### 2 280272 #### [facility] [address] [place] [address] Eosinophils (Bld) [#/Vol] 0.2 E9/L Normal 0.0-0.5 [facility] Comment on above: Performed By: #### 2 038758 #### [facility] [address] [place] [address] Eosinophils/100 WBC (Bld) 3.8 % Normal 0.0-8.0 [facility] Comment on above: Performed By: #### 2 659828 #### [facility] [address] [place] [address] Erythrocyte distribution width (RBC) [Ratio] 15.7 % High 10.9-14.2 [facility] Comment on above: Performed By: #### 2 [id number] #### [facility] [address] [place] [address] Hematocrit (Bld) [Volume fraction] 37.6 % Low 37.7-49.0 [facility] Comment on above: Performed By: #### 2 887919 #### [facility] [address] [place] [address] Hemoglobin (Bld) [Mass/Vol] 13.1 g/dL Low 13.5-17.5 [facility] Comment on above: Performed By: #### 2 403861 #### [facility] [address] [place] [address] Lymphocytes (Bld) [#/Vol] 1.1 E9/L Normal 1.0-4.0 [facility] Comment on above: Performed By: #### 2 111598 #### [facility] [address] [place] [address] Lymphocytes/100 WBC (Bld) 24.1 % Normal 14.0-50.0 [facility] Comment on above: Performed By: #### 2 082546 #### [facility] [address] [place] [address] MCH (RBC) [Entitic mass] 36.9 pg High 27.0-34.0 [facility] Comment on above: Performed By: #### 2 160046 #### [facility] [address] [place] [address] MCHC (RBC) [Mass/Vol] 34.9 g/dL Normal 31.4-36.0 [facility] Comment on above: Performed By: #### 2 267901 #### [facility] [address] [place] [address] MCV (RBC) [Entitic vol] 105.7 fL High 80.0-100.0 [facility] Comment on above: Performed By: #### 2 672815 #### [facility] [address] [place] [address] Monocytes (Bld) [#/Vol] 0.5 E9/L Normal 0.2-1.0 [facility] Comment on above: Performed By: #### 2 993408 #### [facility] [address] [place] [address] Neutrophils (Bld) [#/Vol] 2.8 E9/L Normal 2.0-7.5 [facility] Comment on above: Performed By: #### 2 144351 #### [facility] [address] [place] [address] Neutrophils/100 WBC (Bld) 60.0 % Normal 36.0-75.0 [facility] Comment on above: Performed By: #### 2 425739 #### [facility] [address] [place] [address] Platelet mean volume (Bld) [Entitic vol] 8.8 fL Normal 6.4-10.8 [facility] Comment on above: Performed By: #### 2 848893 #### [facility] [address] [place] [address] Platelets (Bld) [#/Vol] 70.0 E9/L Low 150.0-500.0 [facility] Comment on above: Result Comment: Tierney pheral smear review performed. Performed By: #### 2 888348 #### [facility] [address] [place] [address] RBC (Bld) [#/Vol] 3.6 E12/L Low 4.3-5.9 [facility] Comment on above: Performed By: #### 2 987524 #### [facility] [address] [place] [address] WBC corrected for nucl RBC Auto (Bld) [#/Vol] 4.7 E9/L Normal 4.0-11.0 [facility] Comment on above: Performed By: #### 2 952562 #### [facility] [address] [place] [address] CHEMISTRYOrdered By: SYSTEM SYSTEM on 08-11-2024 Albumin [...] Erythropoietin (EPO) Qn 26.3 mIU/mL High 2.6-18.5 [facility] Comment on above: Result Comment: Smith [employer] DxI 800 Immunoassay System Values obtained with different assay methods or kits cannot be used interchangeably. Results cannot be interpreted as absolute evidence of the presence or absence of malignant disease. Performed at: [facility] [address], [place] [id number] PhD [employer] Performed By: #### 1 [id number] #### [facility] [address] [place] [address] Haptoglobinon 07-11-2024 Haptoglobin [Mass/Vol] mg/dL Low 17-317 [facility] Comment on above: Result Comment: Perf ormed at: [facility] [address] [place], [place] [id number] PhD [employer] Performed By: #### 2 411684 #### [facility] Laboratory [address] [place] [address] ABSCon 07-09-2024 ABSC Gel Interp Negative Normal [facility] Comment on above: Performed By: #### 1 [id number] #### [facility] [address] [place] [address] BLOOD BANKOrdered By: Maria Isabel bain on 07-09-2024 ABSC Gel Interp Negative (07/09/24 8:29 AM) Normal FT BB Subsection AYLIN IgG/C3d Tube Negative (07/09/24 8:29 AM) Normal FT BB Subsection CBC w/ Auto Diffon 4 Basophils/100 WBC (Bld) 0.8 % Normal 0.0-2.0 [facility] Comment on above: Performed By: #### 2 079148 #### [facility] [address] [place] [address] Basophils/Leukocytes Auto (Bld) [Pure # fraction] 0.0 E9/L Normal 0.0-0.2 [facility] Comment on above: Performed By: #### 2 441743 #### [facility] [address] [place] [address] Eosinophils (Bld) [#/Vol] 0.2 E9/L Normal 0.0-0.5 [facility] Comment on above: Performed By: #### 2 771579 #### [facility] [address] [place] [address] Eosinophils/100 WBC (Bld) 5.8 % Normal 0.0-8.0 [facility] Comment on above: Performed By: #### 2 822480 #### [facility] [address] [place] [address] Erythrocyte distribution width (RBC) [Ratio] 15.1 % High 10.9-14.2 [facility] Comment on above: Performed By: #### 2 572960 #### [facility] [address] [place] [address] Hematocrit (Bld) [Volume fraction] 36.8 % Low 37.7-49.0 [facility] Comment on above: Performed By: #### 2 994659 #### [facility] [address] [place] [address] Hemoglobin (Bld) [Mass/Vol] 12.7 g/dL Low 13.5-17.5 [facility] Comment on above: Performed By: #### 2 645472 #### [facility] [address] [place] [address] Lymphocytes (Bld) [#/Vol] 0.9 E9/L Low 1.0-4.0 [facility] Comment on above: Performed By: #### 2 395843 #### [facility] [address] [place] [address] Lymphocytes/100 WBC (Bld) 23.1 % Normal 14.0-50.0 [facility] Comment on above: Performed By: #### 2 363948 #### [facility] [address] [place] [address] MCH (RBC) [Entitic mass] 36.7 pg High 27.0-34.0 [facility] Comment on above: Performed By: #### 2 450762 #### [facility] [address] [place] [address] MCHC (RBC) [Mass/Vol] 34.5 g/dL Normal 31.4-36.0 [facility] Comment on above: Performed By: #### 2 476824 #### [facility] [address] [place] [address] MCV (RBC) [Entitic vol] 106.4 fL High 80.0-100.0 [facility] Comment on above: Performed By: #### 2 137027 #### [facility] [address] [place] [address] Monocytes (Bld) [#/Vol] 0.5 E9/L Normal 0.2-1.0 [facility] Comment on above: Performed By: #### 2 197204 #### [facility] [address] [place] [address] Neutrophils (Bld) [#/Vol] 2.1 E9/L Normal 2.0-7.5 [facility] Comment on above: Performed By: #### 2 987308 #### [facility] [address] [place] [address] Neutrophils/100 WBC (Bld) 57.0 % Normal 36.0-75.0 [facility] Comment on above: Performed By: #### 2 299488 #### [facility] [address] [place] [address] Platelet mean volume (Bld) [Entitic vol] 9.5 fL Normal 6.4-10.8 [facility] Comment on above: Performed By: #### 2 586216 #### [facility] [address] [place] [address] Platelets (Bld) [#/Vol] 67.0 E9/L Low 150.0-500.0 [facility] Comment on above: Result Comment: Tierney pheral smear review performed. Performed By: #### 2 856293 #### [facility] [address] [place] [address] RBC (Bld) [#/Vol] 3.5 E12/L Low 4.3-5.9 [facility] Comment on above: Performed By: #### 2 014507 #### [facility] [address] [place] [address] WBC corrected for nucl RBC Auto (Bld) [#/Vol] 3.7 E9/L Low 4.0-11.0 [facility] Comment on above: Performed By: #### 2 345385 #### [facility] [address] [place] [address] CHEMISTRYOrdered By: SYSTEM SYSTEM on 07-09-2024 Albumin [...] 07-09-2024 Albumin [Mass/Vol] 3.1 g/dL Low 3.3-5.0 [facility] Comment on above: Performed By: #### 2 616915 #### [facility] [address] [place] [address] Albumin/Globulin (S) [Mass conc ratio] 0.9 Low 1.1-2.2 [facility] Comment on above: Performed By: #### 2 108782 #### [facility] [address] [place] [address] ALP [Catalytic activity/Vol] 192 Int._Unit/L High 21-98 [facility] Comment on above: Performed By: #### 2 441467 #### [facility] [address] [place] [address] ALT No additional P-5'-P [Catalytic activity/Vol] 33 Int._Unit/L Normal 6-46 [facility] Comment on above: Performed By: #### 2 955158 #### [facility] [address] [place] [address] Anion gap [Moles/Vol] 7 mmol/L Normal 6-16 [facility] Comment on above: Performed By: #### 2 862875 #### [facility] [address] [place] [address] AST [Catalytic activity/Vol] 56 Int._Unit/L High 5-43 [facility] Comment on above: Performed By: #### 2 163445 #### [facility] [address] [place] [address] Bilirubin [Mass/Vol] 3.1 mg/dL High 0.0-1.1 [facility] Comment on above: Performed By: #### 2 958310 #### [facility] [address] [place] [address] Calcium [Mass/Vol] 8.2 mg/dL Low 8.9-11.1 [facility] Comment on above: Performed By: #### 2 859982 #### [facility] [address] [place] [address] Chloride [Moles/Vol] 105 mmol/L Normal 101-111 [facility] Comment on above: Performed By: #### 2 235438 #### [facility] [address] [place] [address] CO2 [Moles/Vol] 26 mmol/L Normal 21-31 [facility] Comment on above: Performed By: #### 2 430358 #### [facility] [address] [place] [address] Creatinine [Mass/Vol] 0.5 mg/dL Normal 0.5-1.3 [facility] Comment on above: Performed By: #### 2 378306 #### [facility] [address] [place] [address] Globulin (S) [Mass/Vol] 3.5 g/dL Normal 1.4-4.0 [facility] Comment on above: Performed By: #### 2 750604 #### [facility] [address] [place] [address] Glucose [Mass/Vol] 171 mg/dL Normal 55-199 [facility] Comment on above: Performed By: #### 2 421050 #### [facility] [address] [place] [address] Potassium [Moles/Vol] 4.0 mmol/L Normal 3.5-5.3 [facility] Comment on above: Performed By: #### 2 896863 #### [facility] [address] [place] [address] Protein [Mass/Vol] 6.6 g/dL Normal 6.0-7.8 [facility] Comment on above: Performed By: #### 2 196896 #### [facility] [address] [place] [address] Sodium [Moles/Vol] 134 mmol/L Low 135-145 [facility] Comment on above: Performed By: #### 2 275726 #### [facility] [address] [place] [address] Urea nitrogen [Mass/Vol] 10 mg/dL Normal 5-21 [facility] Comment on above: Performed By: #### 2 700142 #### [facility] [address] [place] [address] Urea nitrogen/Creatinine [Mass ratio] 20 No Units Normal 10-20 [facility] Comment on above: Performed By: #### 2 586141 #### [facility] [address] [place] [address] AYLIN IgG/C3d.on 07-09-2024 AYLIN IgG/C3d Tube Negative Normal [facility] Comment on above: Performed By: #### 8 [id number] #### [facility] [address] [place] [address] Ferritinon 07-09-2024 Ferritin [Mass/Vol] 272 ng/mL Normal 24-336 [facility] Comment on above: Performed By: #### 2 119094 #### [facility] [address] [place] [address] HEMATOLOGYOrdered By: SYSTEM SYSTEM on 07-09-2024 Basophils/100 [...] 07-09-2024 Iron [Mass/Vol] 212 microgram/dL High 35-153 [facility] Comment on above: Performed By: #### 2 007242 #### [facility] [address] [place] [address] Iron Saturationon 07-09-2024 Iron binding capacity [Mass/Vol] 246 microgram/dL Low 250-400 [facility] Comment on above: Performed By: #### 2 048814 #### [facility] [address] [place] [address] Iron saturation [Mass fraction] 86 % High 20-50 [facility] Comment on above: Performed By: #### 2 974496 #### [facility] [address] [place] [address] LDHon 07-09-2024 LDH 226 Int._Unit/L High 93-218 [facility] Comment on above: Performed By: #### 2 096210 #### [facility] [address] [place] [address] Retic Counton 07-09-2024 Reticulocytes/100 RBC (Bld) 1.9 % Normal 0.5-2.2 [facility] Comment on above: Performed By: #### 2 620791 #### [facility] [address] [place] [address] Transferrinon 07-09-2024 Transferrin [Mass/Vol] 176 mg/dL Low 200-370 [facility] Comment on above: Performed By: #### 2 952764 #### [facility] [address] [place] [address] eGFRon 07-09-2024 eGFR 132 mL/min/1.73 m2 Normal >=59 [facility] Comment on above: Performed By: #### 1 [id number] #### [facility] [address] [address] Ambulatory Visit Summaryon 1 Ambulatory Visit Summary [...] 5 mg Tab) potassium chloride (Potassium Chloride (Jmt-Ukai-Tjr M20) 20 mEq oral tablet, extended release) [...] 3:00 PM EST With: Loreta Padilla Where: [facility] [address] [employer], [place] [address]- Thursday 9:15 AM EDT With: Carrol MULTANI, Mario Xiong Where: [facility] [address] [employer] [address] [place] [address]- Medications What How Much When Why Instructions New carvedilol (Coreg 6.25 mg Tab) 1 Tablets By Mouth 2 times a day Refills: 3 Pickup at [facility] Unchanged bifidobacterium-lactoba cillus (bifidobacterium-lactob acillus oral [...] Misc Prescription (Misc DME Prescription) See instructions [employer] Dressing 4 x 4 dressing Contact [...] or concerns Unchanged potassium chloride (Potassium Chloride (Hqi-Cihh-Zjc M20) 20 mEq oral tablet, extended release) 1 Tablets By Mouth 2 times a day Contact prescribing physician if questions or concerns Unchanged spironolactone (spironolactone 50 mg Tab) 1 Tablets By Mouth Every day Contact prescribing physician if questions o (more content not included)... Normal [facility] Gastroenterology Office/Clin ic Noteon 06-09-2024 Gastroenterology Office/Clinic Note Gastroenterology Office/Clinic Note Chief Complaint Cirrhosis follow up HPI Staff Patient is a(n) year old male who presents today for a(n) 1 month follow-up. US/labs ordered for 11/2024. Recieved liver bx report from [facility], placed in chart. Need to review bx, US and labs to determine transplant status. Denies blood thinners. Denies GLP-1 agonists. Last visit 05/12/24 w/Dr. Evans: Assessment/Plan 1. Liver cirrhosis, alcoholic (K70.30: Alcoholic cirrhosis of liver without ascites) Sober for more than 2.5 years Liver biopsy was done at [facility], gradient was 14 mmHg Liver biopsy report [...] fL High (05/24/24) Chloride: 102 mmol/L (05/24/24) [place] Absolute: 0.6 E9/L (05/24/24) CO2: 25 mmol/L (05/24/24) [place] Auto: 9.6 % (05/24/24) Creatinine: 0.5 mg/dL [...] 2.5 years Liver biopsy was done at [facility], gradient was 14 mmHg Liver biopsy report is reported steatosis and cirrhosis a (more content not included)... Normal [facility] Comment on above: Result Comment: [...] MD Transcribed by: 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 Razo [facility] .Interpretation:on HCV Ab IA Ql Comment Invalid Interpretation Code [facility] Comment on above: Result Comment: Not infected with HCV unless early or acute infection is suspected (which may be delayed in an immunocompromised individual), or other evidence exists to indicate HCV infection. Performed at: [facility] [address], [place] [id number] PhD [employer] Prater Performed By: #### 2 [id number] #### [facility] [address] [place] [address] AFPon 05-25-2024 AFP.tumor marker [Mass/Vol] 4.1 ng/mL Invalid Interpretation Code 0.0-6.9 [facility] Comment on above: Result Comment: [employer] Electrochemiluminescence Immunoassay (ECLIA) Values obtained with different assay methods or kits cannot be used interchangeably. Results cannot be interpreted as absolute evidence of the presence or absence of malignant disease. This test is not interpretable in females. Performed at: [facility] [id number] PhD [employer] Prater Performed By: #### 2 [id number] #### [facility] [address] [place] [address] AMA Ab Scron 05-25-2024 Mitochondria M2 IgG Qn (S) <20.0 Invalid Interpretation Code 0.0-20.0 [facility] Comment on above: Result Comment: Nega tive 0.0 - 20.0 Equivocal 20.1 - 24.9 Positive >24.9 Mitochondrial (M2) Antibodies are found in 90-96% of patients with primary biliary cirrhosis. Performed at: [address] [id number] PhD [employer] Performed By: #### 1 [id number] #### [facility] [address] [place] [address] GEOVANNA w/Reflex if POSon 2023 Nuclear Ab Ql (S) Negative Invalid Interpretation Code Negative [facility] Comment on above: Result Comment: Perf ormed at: [address] [id number] PhD [employer] Performed By: #### 1 [id number] #### [facility] [address] [place] [address] Nuclear Ab Ql (S) Negative Invalid Interpretation Code Negative [facility] Comment on above: Result Comment: Perf ormed at: [address] [id number] PhD [employer] Performed By: #### 1 [id number] #### [facility] [address] [place] [address] Acute Hepatitis A B C Panelo n 05-25-2024 HAV IgM IA Ql Negative Invalid Interpretation Code Negative Main [facility] Comment on above: Result Comment: A ne gative anti-HAV IgM result suggests no recent or current HAV infection. Performed By: #### 3 [id number] #### [facility] [address] [place] [address] HBV core IgM IA Ql Negative Invalid Interpretation Code Negative [facility] Comment on above: Performed By: #### 3 [id number] #### [facility] [address] [place] [address] HBV surface Ag IA Ql Negative Invalid Interpretation Code Negative [facility] Comment on above: Performed By: #### 3 [id number] #### [facility] [address] [place] [address] HCV IgG IA Ql Non-Reactive Invalid Interpretation Code Non Reactive [facility] Comment on above: Result Comment: Perf ormed at: [address] [id number] PhD Poncho Prater Performed By: #### 3 [id number] #### [facility] [address] [place] [address] Alpha 1 Antitrpon 05-25-2024 Alpha 1 antitrypsin [Mass/Vol] 153 mg/dL Invalid Interpretation Code 95-164 [facility] Comment on above: Result Comment: Perf ormed at: [address] [id number] PhD Poncho Prater Performed By: #### 1 [id number] #### [facility] [address] [place] [address] Alpha 1 antitrypsin [Mass/Vol] 159 mg/dL Invalid Interpretation Code 95-164 [facility] Comment on above: Result Comment: Perf ormed at: [address] [id number] PhD Poncho Prater Performed By: #### 1 [id number] #### [facility] [address] [place] [address] Ceruloplasminon 05-25-2024 Ceruloplasmin [Mass/Vol] 18.6 mg/dL Invalid Interpretation Code 16.0-31.0 [facility] Comment on above: Result Comment: Perf ormed at: [address] [id number] PhD Poncho Prater Performed By: #### 1 [id number] #### [facility] [address] [place] [address] Ceruloplasmin [Mass/Vol] 19.9 mg/dL Invalid Interpretation Code 16.0-31.0 [facility] Comment on above: Result Comment: Perf ormed at: [address] [id number] PhD Ottodecharmaine Prater Performed By: #### 1 [id number] #### [facility] [address] [place] [address] Hep Bs Abon 05-25-2024 HBV surface Ab Ql (S) Non-Reactive Invalid Interpretation Code [facility] Comment on above: Result Comment: Non Reactive: Not immune to HBV infection. Equivocal: Unable to determine if anti-HBs is present at levels consistent with immunity. Reactive: Anti-HBs concentration detected at greater than 10 mIU/mL. Individual is considered to be immune to infection with HBV. Performed at: [address] [id number] [facility]ly [facility] Famdecharmaine Prater Performed By: #### 2 [id number] #### [facility] [address] [place] [address] Hepatitis A Virus (HAV) Anti body, Totalon 05-25-2024 HAV Ab IA Ql (S) Negative Invalid Interpretation Code Negative [facility] Comment on above: Result Comment: Comm ent: The HAV total antibody assay detects both IgG and IgM but does not differentiate between them. A negative result suggests susceptibility to infection. A positive result could be due to vaccination, previously resolved infection or active infection. Testing for HAV IgM should be performed if active HAV infection is suspected. [facility] offers profiles that will automatically reflex positive HAV total antibody results to IgM (e.g., panel #[id number] HAV Antibody w/ Rfx). Performed at: [address] [id number] PhD Ottodecharmaine Prater Performed By: #### 1 [id number] #### [facility] [address] [place] [address] IgG, Quant.on 05-25-2024 IgG [Mass/Vol] 1784 mg/dL High 603-1613 [facility] Comment on above: Result Comment: Perf ormed at: [address] [id number] PhD Poncho Prater Performed By: #### 1 [id number] #### [facility] [address] [place] [address] Smooth Muscle Abon 4 Actin smooth muscle IgG Qn (S) 18 unit(s) Invalid Interpretation Code 0-19 [facility] Comment on above: Result Comment: Nega tive 0 - 19 Weak positive 20 - 30 Moderate to strong positive >30 Actin Antibodies are found in 52-85% of patients with autoimmune hepatitis or chronic active hepatitis and in 22% of patients with primary biliary cirrhosis. Performed at: [address] [id number] PhD Poncho Prater Performed By: #### 1 [id number] #### [facility] [address] [place] [address] Bili Directon 05-24-2024 Bilirubin.direct [Mass/Vol] 1.1 mg/dL High 0.0-0.4 [facility] Comment on above: Performed By: #### 2 [id number] #### [facility] [address] [place] [address] CBC w/ Auto Diffon 4 Basophils/100 WBC (Bld) 0.8 % Normal 0.0-2.0 [facility] Comment on above: Performed By: #### 2 [id number] #### [facility] [address] [place] [address] Basophils/Leukocytes Auto (Bld) [Pure # fraction] 0.0 E9/L Normal 0.0-0.2 [facility] Comment on above: Performed By: #### 2 [id number] #### [facility] [address] [place] [address] Eosinophils (Bld) [#/Vol] 0.2 E9/L Normal 0.0-0.5 [facility] Comment on above: Performed By: #### 2 [id number] #### [facility] [address] [place] [address] Eosinophils/100 WBC (Bld) 3.4 % Normal 0.0-8.0 [facility] Comment on above: Performed By: #### 2 [id number] #### [facility] [address] [place] [address] Erythrocyte distribution width (RBC) [Ratio] 16.9 % High 10.9-14.2 [facility] Comment on above: Performed By: #### 2 [id number] #### [facility] [address] [place] [address] Hematocrit (Bld) [Volume fraction] 35.2 % Low 37.7-49.0 [facility] Comment on above: Performed By: #### 2 [id number] #### [facility] [address] [place] [address] Hemoglobin (Bld) [Mass/Vol] 12.1 g/dL Low 13.5-17.5 [facility] Comment on above: Performed By: #### 2 [id number] #### [facility] [address] [place] [address] Lymphocytes (Bld) [#/Vol] 1.0 E9/L Normal 1.0-4.0 [facility] Comment on above: Performed By: #### 2 [id number] #### [facility] [address] [place] [address] Lymphocytes/100 WBC (Bld) 16.1 % Normal 14.0-50.0 [facility] Comment on above: Performed By: #### 2 [id number] #### [facility] [address] [place] [address] MCH (RBC) [Entitic mass] 36.0 pg High 27.0-34.0 [facility] Comment on above: Performed By: #### 2 [id number] #### [facility] [address] [place] [address] MCHC (RBC) [Mass/Vol] 34.3 g/dL Normal 31.4-36.0 [facility] Comment on above: Performed By: #### 2 [id number] #### [facility] [address] [place] [address] MCV (RBC) [Entitic vol] 104.9 fL High 80.0-100.0 [facility] Comment on above: Performed By: #### 2 [id number] #### [facility] [address] [place] [address] Monocytes (Bld) [#/Vol] 0.6 E9/L Normal 0.2-1.0 [facility] Comment on above: Performed By: #### 2 011207 #### [facility] [address] [place] [address] Neutrophils (Bld) [#/Vol] 4.2 E9/L Normal 2.0-7.5 [facility] Comment on above: Performed By: #### 2 [id number] #### [facility] [address] [place] [address] Neutrophils/100 WBC (Bld) 70.1 % Normal 36.0-75.0 [facility] Comment on above: Performed By: #### 2 551975 #### [facility] [address] [place] [address] Platelet mean volume (Bld) [Entitic vol] 9.0 fL Normal 6.4-10.8 [facility] Comment on above: Performed By: #### 2 [id number] #### [facility] [address] [place] [address] Platelets (Bld) [#/Vol] 81.0 E9/L Low 150.0-500.0 [facility] Comment on above: Result Comment: Tierney pheral smear review performed. Performed By: #### 2 [id number] #### [facility] [address] [place] [address] RBC (Bld) [#/Vol] 3.4 E12/L Low 4.3-5.9 [facility] Comment on above: Performed By: #### 2 792154 #### [facility] [address] [place] [address] WBC corrected for nucl RBC Auto (Bld) [#/Vol] 6.0 E9/L Normal 4.0-11.0 [facility] Comment on above: Performed By: #### 2 [id number] #### [facility] [address] [place] [address] CHEMISTRYOrdered By: SYSTEM SYSTEM on 05-24-2024 Albumin [...] 05-24-2024 Albumin [Mass/Vol] 3.5 g/dL Normal 3.3-5.0 [facility] Comment on above: Performed By: #### 2 [id number] #### [facility] [address] [place] [address] Albumin/Globulin (S) [Mass conc ratio] 0.9 Low 1.1-2.2 [facility] Comment on above: Performed By: #### 2 [id number] #### [facility] [address] [place] [address] ALP [Catalytic activity/Vol] 219 Int._Unit/L High 21- [facility] Comment on above: Performed By: #### 2 [id number] #### [facility] [address] [place] [address] ALT No additional P-5'-P [Catalytic activity/Vol] 57 Int._Unit/L High 6-46 [facility] Comment on above: Performed By: #### 2 [id number] #### [facility] [address] [place] [address] Anion gap [Moles/Vol] 10 mmol/L Normal 6-16 [facility] Comment on above: Performed By: #### 2 929753 #### [facility] [address] [place] [address] AST [Catalytic activity/Vol] 96 Int._Unit/L High 5-43 [facility] Comment on above: Performed By: #### 2 127108 #### [facility] [address] [place] [address] Bilirubin [Mass/Vol] 5.3 mg/dL High 0.0-1.1 [facility] Comment on above: Performed By: #### 2 [id number] #### [facility] [address] [place] [address] Calcium [Mass/Vol] 9.0 mg/dL Normal 8.9-11.1 [facility] Comment on above: Performed By: #### 2 244911 #### [facility] [address] [place] [address] Chloride [Moles/Vol] 102 mmol/L Normal 101-111 [facility] Comment on above: Performed By: #### 2 357228 #### [facility] [address] [place] [address] CO2 [Moles/Vol] 25 mmol/L Normal 21-31 [facility] Comment on above: Performed By: #### 2 544472 #### [facility] [address] [place] [address] Creatinine [Mass/Vol] 0.5 mg/dL Normal 0.5-1.3 [facility] Comment on above: Performed By: #### 2 428514 #### [facility] [address] [place] [address] Globulin (S) [Mass/Vol] 3.9 g/dL Normal 1.4-4.0 [facility] Comment on above: Performed By: #### 2 601271 #### [facility] [address] [place] [address] Glucose [Mass/Vol] 100 mg/dL Normal 55-199 [facility] Comment on above: Performed By: #### 2 [id number] #### [facility] [address] [place] [address] Potassium [Moles/Vol] 4.0 mmol/L Normal 3.5-5.3 [facility] Comment on above: Performed By: #### 2 [id number] #### [facility] [address] [place] [address] Protein [Mass/Vol] 7.4 g/dL Normal 6.0-7.8 [facility] Comment on above: Performed By: #### 2 393619 #### [facility] [address] [place] [address] Sodium [Moles/Vol] 133 mmol/L Low 135-145 [facility] Comment on above: Performed By: #### 2 351997 #### [facility] [address] [place] [address] Urea nitrogen [Mass/Vol] 8 mg/dL Normal 5-21 [facility] Comment on above: Performed By: #### 2 504427 #### [facility] [address] [place] [address] Urea nitrogen/Creatinine [Mass ratio] 16 No Units Normal 10-20 [facility] Comment on above: Performed By: #### 2 [id number] #### [facility] [address] [place] [address] COAGULATIONOrdered By: Maria Isabel Chavira on 05-24-2024 aPTT Coag (PPP) [Time] 42.5 s High 25.1 - 36.5 second(s) [facility] Comment on above: Interpretive Data: [...] the same coagulation reagent and instrumentation as [facility]. Currently there are no coagulation studies available worldwide for children to 14 days, and no normal ranges. Heparin therapeutic range (represented by Anti-Factor Xa activity of 0.2 - 0.4 U/mL) corresponds to PTT of 56.6 - 109.0 sec. INR Coag (PPP) [Relative time] 1.52 {INR} Invalid Interpretation Code [facility] Comment on above: Interpretive Data: I NR results are specifically intended to assess patients stabilized on long-term Anticoagulation therapy suggested INR s Less Intensive Anticoagulation 2.0 3.0 Conventional Range 3.0 4.5 PT Coag (PPP) [Time] 17.1 s High 9.4 - 1 2.5 second(s) [facility] Comment on above: Interpretive Data: [...] were obtained from a study by Julito aNjera et al. prepared from 1437 samples obtained at 7 different centers using the same coagulation reagent and instrumentation as [facility]. Currently there are no coagulation studies available worldwide for children to 14 days, and no normal ranges. Ferritinon 05-24-2024 Ferritin [Mass/Vol] 401 ng/mL High 24-336 [facility] Comment on above: Performed By: #### 2 [id number] #### [facility] [address] [place] [address] HEMATOLOGYOrdered By: SYSTEM SYSTEM on 05-24-2024 Basophils/100 [...] 05-24-2024 Iron [Mass/Vol] 268 microgram/dL High 35-153 [facility] Comment on above: Performed By: #### 2 [id number] #### [facility] [address] [place] [address] PT & PTTon 05-24-2024 aPTT Coag (PPP) [Time] 42.5 second(s) High 25.1-36.5 [facility] Comment on above: Result Comment: Para meter [...] the same coagulation reagent and instrumentation as [facility]. Currently there are no coagulation studies available worldwide for children to 14 days, and no normal ranges. Heparin therapeutic range (represented by Anti-Factor Xa activity of 0.2 - 0.4 U/mL) corresponds to PTT of 56.6 - 109.0 sec. Performed By: #### 1 [id number] #### [facility] [address] [place] [address] INR Coag (PPP) [Relative time] 1.52 {INR} Invalid Interpretation Code [facility] Comment on above: Result Comment: INR results are specifically intended to assess patients stabilized on long-term Anticoagulation therapy suggested INR?s ?Less Intensive Anticoagulation? 2.0 ? 3.0 Conventional Range 3.0 ? 4.5 Performed By: #### 1 [id number] #### [facility] [address] [place] [address] PT Coag (PPP) [Time] 17.1 second(s) High 9.4-12.5 [facility] Comment on above: Result Comment: 15 d [...] the same coagulation reagent and instrumentation as [facility]. Currently there are no coagulation studies available worldwide for children to 14 days, and no normal ranges. Performed By: #### 1 [id number] #### [facility] [address] [place] [address] TIBC Calculatedon 05-24-2024 Iron binding capacity [Mass/Vol] 265 microgram/dL Normal 250-400 [facility] Comment on above: Performed By: #### 1 [id number] #### [facility] [address] [place] [address] Transferrin [Mass/Vol] 189 mg/dL Low 200-370 [facility] Comment on above: Performed By: #### 1 [id number] #### [facility] [address] [place] [address] eGFRon 05-24-2024 eGFR 132 mL/min/1.73 m2 Normal >=59 [facility] Comment on above: Order Comment: Order added by Discern Expert. Performed By: #### 1 [id number] #### [facility] [address] [place] [address] Ambulatory Visit Summaryon 0 05-12-2024 Ambulatory Visit Summary Ambulatory Visit Summary WILL RALPH :1985 Visit Date:05/12/2024 Ambulatory Visit Instructions Your Diagnosis Liver cirrhosis, alcoholic Alcohol use disorder in remission Elevated liver enzymes Hemolytic anemia Your Care Team Attending Physician - Mario Evans MD Primary Care Physician - Lortea Padilla This Is Your Medications List Contact [...] 5 mg Tab) potassium chloride (Potassium Chloride (Pej-Kyql-Esp M20) 20 mEq oral tablet, extended release) [...] EDT With: Carrol MULTANI, Mario Xiong Where: [facility] [address] [facility] [address] [place] [address]- 2023 2:40 PM EST With: Kavon Lu DO Where: Oncology Thursday 3:00 PM EST With: Loreta Padilla Where: [facility] [address], [place] [address]- You Need to Complete the Following Alpha Fetoprotein Tumor Marker, Blood, Routine collect, 05/12/24, Order for future visit, Lab Collect, Alcoholic cirrhosis, Print Label By Order Location [id number], Blood, Routine collect, 05/12/24, Order for future [...] [place] (more content not included)... Normal [facility] Gastroenterology Office/Clin ic Noteon 05-12-2024 Gastroenterology Office/Clinic Note Gastroenterology Office/Clinic Note HPI Staff Patient is a(n) 38 year old male who presents today for a(n) 6 month follow-up. Was referred to [facility] 12/4023 for possible cholecystectomy d/t high risk. Denies blood thinners/GLP-1 agonists. Last visit 09/01/23 w/Dr. Evans: Assessment/Plan 1. Alcohol use disorder in remission (F10.91: Alcohol use, unspecified, in remission) Diagnosed few years ago, was actively drinking, he quit then He had a biopsy done at [facility] in January 2023, he had hepatic [...] due, last one was around January and [facility] report not available - Transplant Status: [...] fL High (05/06/24) Chloride: 101 mmol/L (05/06/24) [place] Absolute: 0.4 E9/L (05/06/24) CO2: 26 mmol/L (05/06/24) [place] Auto: 11 % (05/06/24) Creatinine: 0.5 mg/dL [...] 2.5 years Liver biopsy was done at [facility], gradient was 14 mmHg Liver biopsy report [...] remission (F10. (more content not included)... Normal [facility] Comment on above: Result Comment: Elec tronically Signed By: Carrol MULTANI, Mario Xiong\.br\Date and Time Signed: 05/12/24 16:02 EDT Haptoglobinon 05-08-2024 Haptoglobin [Mass/Vol] mg/dL Low 17-317 [facility] Comment on above: Result Comment: Perf ormed at: [facility] [address] [id number] PhD Poncho Prater Performed By: #### 2 [id number] #### [facility] [address] [place] [address] CHEMISTRYOrdered By: SYSTEM SYSTEM on 05-06-2024 Albumin [...] Reticulocytes/100 RBC (Bld) 2.4 % High 0.5-2.2 [facility] Comment on above: Performed By: #### 2 [id number] #### [facility] [address] [place] [address] Ambulatory Visit Summaryon 0 04-29-2024 Ambulatory Visit [...] 5 mg Tab) potassium chloride (Potassium Chloride (Yqz-Vxvk-Zcw M20) 20 mEq oral tablet, extended release) [...] EDT With: Carrol MULTANI, Mario Xiong Where: [facility] [address] [address]- Medications What How Much When Why Instructions New bifidobacterium-lactoba cillus (bifidobacterium-lactob acillus oral tablet) 1 Tablets By Mouth Every day Pickup at [id number] New promethazine (promethazine 25 mg Tab) 1 Tablets By Mouth Every 6 hours as needed for for nausea/vomiting Pickup at [facility] #[id number] Changed furosemide (furosemide 20 mg Tab) 1 Tablets By Mouth Every day Cirrhosis Dependent edema Pickup at [facility] #[id number] Unchanged cholecalciferol (cholecalciferol 50,000 intl units oral [...] Misc Prescription (Misc DME Prescription) See instructions [employer] Dressing 4 x 4 dressing Contact [...] or concerns Unchanged potassium chloride (Potassium Chloride (Irb-Onta-Pvr M20) 20 mEq oral tablet, extended release) 1 Tablets By Mouth 2 times a day Contact prescribing physician if questions or concerns Unchanged spironolactone (spironolac (more content not included)... Normal [facility] Family Medicine Office/Clini c Noteon 04-29-2024 Family [...] Present Illness Patient was recently hospitalized at [facility] with right leg cellulitis and UTI, he was c/o urinary burning, discoloration and rapid decline. TODAY No symptoms of UTI noted. Patient remains a-febrile. RLE edema, pain no redness continues. No drainage noted. Patient states he was seen at [facility] and told he had a superficial blood [...] left - bruising noted after cath in [place], patient report he went to [place] to have Dr Bertrand said everything looked [...] 08:41 AM BP: 148/85 mmHg Patient Location: [facility] : 1985 Gender: Male Height: 67 [...] Date: 12/11/19 (more content not included)... Normal [facility] Comment on above: Result Comment: Elec tronically Signed By: Loreta Padilla\.br\Date and Time Signed: 04/29/24 10:26 EDT POC BUN CREATon 04-26-2024 Creatinine [Mass/Vol] 0.5 mg/dL Low 0.7-1.2 [facility] Comment on above: Result Comment: METH OD TRACEABLE TO IDMS STANDARD Performed By: #### I BC #### [facility] ([id number]) [address] [place] [address] eGFR (CKD-EPI) NON-RACE DEPENDENT >90 Normal >59 [facility] Comment on above: Result Comment: Reported eGFR is based on the CKD-EPI 2020 equation that does not use a race coefficient. Performed By: #### I BC #### [facility] ([id number]) [address] [place] [address] Urea nitrogen [Mass/Vol] 9 mg/dL Normal 6-23 [facility] Comment on above: Performed By: #### I BC #### [facility] ([id number]) [address] [place] [address] [facility] 04-18-20 [facility] Case Information Case Priority: None Programs: -- Referral Source: Poured Wall Foreman Referral Reason: Care coordination Case Type: Transition [...] 0.5 tab, Oral, q6hr, PRN Potassium Chloride (Fkn-Txvh-Jjz M20) 20 mEq oral tablet, extended release, [...] noted. Patient states he was seen at [facility] and told he had a superficial blood [...] summary note. Created By: Nasrin Greene RN [facility] 04-05-20 [facility] Case Information Case Priority: None Programs: -- Referral Source: Poured Wall Foreman Referral Reason: Care coordination Case Type: Transition [...] 0.5 tab, Oral, q6hr, PRN Potassium Chloride (Wen-Rmdx-Hmg M20) 20 mEq oral tablet, extended release, [...] By: Jc GREER, Nasrin Zuniga [facility] Heart and Vascular Office/[facility] Noteon 03-17-2024 Heart and Vascular Office/Clinic Note [...] 08:41 AM BP: 148/85 mmHg Patient Location: [facility] : 1985 Gender: Male Height: 67 in Age: 38 yrs Ethnicity: T Weight: 150 lb Reason For Study: Chest pain BSA: 1.8 m2 History: HTN,Murmur,Alcohol use Ordering Physician: Lexi^Nadia Referring Physician: Loreta Cummings Performed By: Chloe Angel, [facility] Interpretation Summary Stress echo test aborted [...] 08:15 AM BP: 148/85 mmHg Patient Location: [facility] HR: 65 : 1985 Gender: Male Height: 67 in Age: 38 yrs Ethnicity: WHT Weight: 150 lb Reason For Study: Chest pain BSA: 1.8 m2 History: HTN,Alcohol use Ordering Physician: John^Loreta^Nadia Referring Physician: Loreta Cummings Performed By: Chloe Angel [facility] Interpretation Summary No comparison study is [...] Abnormal stress test Alcohol use disorder in [facility] (more content not included)... Normal [facility] Comment on above: Result Comment: Elec tronically Signed By: Shalonda MULTANI, Marc Love\.chidi\Date and Time Signed: 03/17/24 14:46 EDT Lab Miscellaneous-LCon 03-09 Lab Miscellaneous COMMENT Invalid Interpretation Code [facility] Comment on above: Result Comment: Test Ordered: [id number] Hered.Hemochromatosis, DNA Hereditary Hemochromatosis Comment TG Results: c.845G>A (p.Tla673Wpq) - Not Detected c.187C>G (p.Atl46Maz) - Not Detected c.193A>T (p.Rfj25Gul) - Detected, heterozygous Not associated with increased [...] for patients who are homozygous for c.845G>A (p.Yfg516Xxk) and have yet to experience clinical symptoms. Comments: The most common HFE variants associated with hereditary hemochromatosis are c.845G>A (p.Plv194Tyu), c.187C>G (p.Jum29Owd), c.193A>T (p.Kwj57Cbs). While patients homozygous for c.845G>A (p.Kmj322Iwp) are the most likely to present clinical symptoms, less than 10% develop clinically significant iron overload with tissue and organ damage. Genetic counseling is recommended to discuss the potential clinical implications of positive results, as well as recommendations for testing family members. Genetic Coordinators are available for health care providers to discuss results at [phone] Test Details: Three variants analyzed: c.845G>A (p.Jaf974Srh), commonly referred to as C282Y c.187C>G (p.Rzj03Hio), commonly referred to as H63D c.193A>T (p.Jag96Bxg), commonly referred to as S65C Methods/Limitations: DNA [...] developed and its performance characteristics determined by [facility]. It has not been cleared or approved by the Food and Drug Administration. References: Jh BR, Xavier PC, Diane KV, Ilya LW, Allan ; [employer]. Diagnosis and management of hemochromatosis: 2011 practice guideline by the [employer] Liver Diseases. Hepatology. 2011 Mar;54(1):328-43. doi: 10.1002/hep.32742. PMID: 06588377; PMCID: [id number]. Jasson G, Blake P, Scarlet DW, Kalyn H, Elliott O, Humberto S, Myles I, Nehemias M, Sanjay S. [facility] best practice guidelines for the molecular genetic diagnosis of hereditary hemochromatosis (HH). Eur J Hum Sisi. 2016 Dec;24(4):479-95. doi: 10.1038/ejhg.2015.128. Epub 2014Mar 14. PMID: 72469505; PMCID: BYO4882891. Reviewed by: Comment TG Technical Component performed at [facility] RTP Professional Component performed by: Selena Funes, Ph.D., [facility] Director, Molecular Genetics [address] [place] [address] Performed at: [address] [id number] PhD Poncho Prater Performed By: #### 1 [id number] #### [facility] [address] [place] [address] Copper Lvlon 03-04-2024 Copper [Mass/Vol] 80 microgram/dL Invalid Interpretation Code 69-132 [facility] Comment on above: Result Comment: This test was developed and its performance characteristics determined by [facility]. It has not been cleared or approved by the Food and Drug Administration. Detection Limit = 5 Performed at: [address] [id number] MD Héctor Carney Performed By: #### 1 [id number] #### [facility] [address] [place] [address] Haptoglobinon 03-04-2024 Haptoglobin [Mass/Vol] mg/dL Low 17-317 [facility] Comment on above: Result Comment: Perf ormed at: [facility] [id number] [place], [place] [id number] PhD Poncho Prater Performed By: #### 2 [id number] #### [facility] [address] [place] [address] BLOOD BANKOrdered By: Maria Isabel bain on 03-02-2024 AYLIN IgG/C3d Tube Negative (03/02/24 1:51 PM) Normal [facility] [place] Subsection Bili Tot/Diron 03-02-2024 Bilirubin [Mass/Vol] 5.0 mg/dL High 0.0-1.1 [facility] Comment on above: Performed By: #### 2 [id number] #### [facility] [address] [place] [address] Bilirubin.direct [Mass/Vol] 1.2 mg/dL High 0.0-0.4 [facility] Comment on above: Performed By: #### 2 [id number] #### [facility] [address] [place] [address] Bilirubin.indirect [Mass or moles/Vol] 3.8 mg/dL High 0.1-0.9 [facility] Comment on above: Performed By: #### 2 [id number] #### [facility] [address] [place] [address] CBC w/ Auto Diffon 4 Basophils/100 WBC (Bld) 0.6 % Normal 0.0-2.0 [facility] Comment on above: Performed By: #### 2 [id number] #### [facility] [address] [place] [address] Basophils/Leukocytes Auto (Bld) [Pure # fraction] 0.0 E9/L Normal 0.0-0.2 [facility] Comment on above: Performed By: #### 2 [id number] #### [facility] [address] [place] [address] Eosinophils (Bld) [#/Vol] 0.1 E9/L Normal 0.0-0.5 [facility] Comment on above: Performed By: #### 2 [id number] #### [facility] [address] [place] [address] Eosinophils/100 WBC (Bld) 3.0 % Normal 0.0-8.0 [facility] Comment on above: Performed By: #### 2 [id number] #### [facility] [address] [place] [address] Erythrocyte distribution width (RBC) [Ratio] 15.6 % High 10.9-14.2 [facility] Comment on above: Performed By: #### 2 [id number] #### [facility] [address] [place] [address] Hematocrit (Bld) [Volume fraction] 33.0 % Low 37.7-49.0 [facility] Comment on above: Performed By: #### 2 [id number] #### [facility] [address] [place] [address] Hemoglobin (Bld) [Mass/Vol] 11.7 g/dL Low 13.5-17.5 [facility] Comment on above: Performed By: #### 2 [id number] #### [facility] [address] [place] [address] Lymphocytes (Bld) [#/Vol] 1.1 E9/L Normal 1.0-4.0 [facility] Comment on above: Performed By: #### 2 [id number] #### [facility] [address] [place] [address] Lymphocytes/100 WBC (Bld) 24.5 % Normal 14.0-50.0 [facility] Comment on above: Performed By: #### 2 [id number] #### [facility] [address] [place] [address] MCH (RBC) [Entitic mass] 37.3 pg High 27.0-34.0 [facility] Comment on above: Performed By: #### 2 [id number] #### [facility] [address] [place] [address] MCHC (RBC) [Mass/Vol] 35.5 g/dL Normal 31.4-36.0 [facility] Comment on above: Performed By: #### 2 [id number] #### [facility] [address] [place] [address] MCV (RBC) [Entitic vol] 105.0 fL High 80.0-100.0 [facility] Comment on above: Performed By: #### 2 [id number] #### [facility] [address] [place] [address] Monocytes (Bld) [#/Vol] 0.4 E9/L Normal 0.2-1.0 [facility] Comment on above: Performed By: #### 2 [id number] #### [facility] [address] [place] [address] Neutrophils (Bld) [#/Vol] 2.7 E9/L Normal 2.0-7.5 [facility] Comment on above: Performed By: #### 2 [id number] #### [facility] [address] [place] [address] Neutrophils/100 WBC (Bld) 62.6 % Normal 36.0-75.0 [facility] Comment on above: Performed By: #### 2 624331 #### [facility] [address] [place] [address] Platelet 85.0 E9/L Low 150.0-500.0 [facility] Comment on above: Performed By: #### 2 [id number] #### [facility] [address] [place] [address] Platelet mean volume (Bld) [Entitic vol] 9.2 fL Normal 6.4-10.8 [facility] Comment on above: Performed By: #### 2 [id number] #### [facility] [address] [place] [address] RBC (Bld) [#/Vol] 3.2 E12/L Low 4.3-5.9 [facility] Comment on above: Performed By: #### 2 [id number] #### [facility] [address] [place] [address] WBC corrected for nucl RBC Auto (Bld) [#/Vol] 4.4 E9/L Normal 4.0-11.0 [facility] Comment on above: Performed By: #### 2 [id number] #### [facility] [address] [place] [address] CHEMISTRYOrdered By: SYSTEM SYSTEM on 03-02-2024 Bilirubin [...] 5.60 mcIU/mL Remisol Chem Consenton 03-02-2024 Consent [id number] [facility] [id number]#1.00T IFF Normal [facility] Consent for Treatmenton 02-06 Consent for Treatment [id number]#1.00T IFF Normal [facility] AYLIN IgG/C3d.on 03-02-2024 AYLIN IgG/C3d Tube Negative Normal [facility] Comment on above: Performed By: #### 8 [id number] #### [facility] [address] [place] [address] Folateon 03-02-2024 Folate [Mass/Vol] 20.5 ng/mL Normal >=6.7 [facility] Comment on above: Performed By: #### 2 [id number] #### [facility] [address] [place] [address] Free T4on 03-02-2024 Free T4 [Mass/Vol] 0.64 ng/dL Normal 0.58-1.64 [facility] Comment on above: Performed By: #### 2 [id number] #### [facility] [address] [place] [address] HEMATOLOGYOrdered By: SYSTEM SYSTEM on 03-02-2024 Basophils/100 [...] LDHon 03-02-2024 LDH 238 Int._Unit/L High 93-218 [facility] Comment on above: Performed By: #### 2 [id number] #### [facility] [address] [place] [address] Lab Miscellaneous-LCon 03-02 Test Code 992640 Invalid Interpretation Code [facility] Comment on above: Performed By: #### 1 [id number] #### [facility] [address] [place] [address] Test Name HFE gene Invalid Interpretation Code [facility] Comment on above: Performed By: #### 1 [id number] #### [facility] [address] [place] [address] Reference Laboratory Testing Ordered By: Karina Vela on 03-02-2024 Test Code 489716 1 Invalid Interpretation Code [facility] Test Name HFE gene Invalid Interpretation Code [facility] Retic Counton 03-02-2024 Reticulocytes/100 RBC (Bld) 2.7 % High 0.5-2.2 [facility] Comment on above: Performed By: #### 2 [id number] #### [facility] [address] [place] [address] TSHon 03-02-2024 TSH Qn 1.24 m[IU]/L Normal 0.34-5.60 [facility] Comment on above: Performed By: #### 2 [id number] #### [facility] [address] [place] [address] Coding Summary.on 03-01-2024 Coding Summary. AFNFOldy23MZu5vUc+PG hlY WQ+TO4VGPUmY99myWEecQ2t W8GJHCdMNwvwPAFBZLwNVpQ yzpFcJF7amTZwORYq IC8+TU1bWDCmHwwzdCSrh0S 1kSD7J36sut2hAFfelKX0QJ BqEjFdgvcdr2okyMe3HSmeL mluOyBt BJBpyU51JEE5tH20Lg86fIC isIBrv4ofnCi3VbHrPIEsVB A4fOwnDDcbz1AxXUCmM23ul NGzv1C3 SDMmdUntuNPfZiFrgIC1tP7 zRPpdrczll4rkrpqiCon9fb 14hTXpp8A3qBH3O1GnylF6M GJvbGQg NcuvrLYRkI6hmmlrx4tscze zAwQyIWOcUQt1QMx8IOUfyN jaDpGdSX59QAA3CGFgtoZrX 2FsLWFs mGyfSyW1g0U2Qq4EA2ILIsw zS7WONDBOGLcirYF+PC90cj 05Z5XzCokiKvf1UAWjQHV1r QP3cA8w VAIlABunr1O4yCD0J5UhrhX xzd4ds3jeQLIsCExcO10aaK Oyg4T5AYBseSG2MRUwcYxuN iBzaG93 Oyc+BRRgmNnys6RlLqumn0j bl5mepTu2LjckCPKdneAllI eyAPB5j4HoGv0rPHHaeXU6e SJ4yS4u RhMbKbD9AUofW010WjGlnCJ eQgrqB20oN9IqoDU+PHRyPj d5TIIlyPmxQX8dX8ArUAAau mctbGVm iMhvCZ0nRSAzycnjOQVimV0 oFOJlR3s6EcLnMkA3IWpsP3 BqDQTllqnuXs68yN4aAsYzH eF6ZXuq R1HkayZ8WFAtiFMlDBtpBFI 3D35ig2X8SUGdHZVeZSY2kO E8sJ2xwEuinsqtaQLqfAucj mVydGlj JZexZVavN129XVJrlSvdZpY vZGluZyBEYXRlOiAgMDYvMj UvMjAyNDwvdGQ+GTWdGDH6l WxlPSAn aXWmVHtcBb4fmBslxNtyFN2 bFHOaktcoQETltQ9lCUXjiD EnvNnmEW4oRZXilrzox637X iAxMHB0 LJXmbIJvE1DnpQ7vEzZvWBO aAMThR9QqcXZfBIskN657EQ lqLeP0RFJtqwBjA1MwFOUof WduOiB0 p3C1No6Vr9SrjcxhS6ZmuGM iUuZtZfviBGi9D6UwKbixgA I+VZ22XIGrTW49WKu2CSP8w WxlPSdi HITfK8ArdE3dXxLzZSMaPUZ kOyc+PHRhYmxlIHdpZHRoPS nhFRXxApDjcYrfLE5eOr7zB GVyLWNv rDyvhYQjJbXbe5piTDJoDLe aSR5ijXfwY2EigQE0JUAdd7 a7Yi77U86yP2MjqXZ+PGNvb MX9aGZ7 gF3gEoOjNgR8WSiaN004OfH oiDWxXnmyc5ccn3swaNj8Lb G9KMNspdMzrDvtZHF2r5CdF b75R88h IHdpZHRoPSIxNSUiIHZhbGl psk8hxA5dAh5+AGTafPH9nV G2fW3pGwYdCqN8FXrnL951F nRvcCIv Imfmx8vqo1ijgQt5RrOlMBW xrcKsjAygOCP0m7VnXu07U6 HhhDchi3SbIno2rm06nLNlc 9X4cKH5 C7UoUVAusygnsQMpaGryRW4 cKRQuqwbyOOVlkA3iMRUcT0 f8BeVhTaV8ZBwsJ8LjmyS0E GJvbGQg TSNqyJDLcY2yykcac7csmcm eBdJzQIVcFWa4HQr3AFElbW pjQyVkHEP5YhO1MHA3hKWqw F6baSuj bsyqwG0pBsg+CSD3qJJbnWD UUN4kNudsiXX+PFGpKOC5iH bwFQviILMoqT8vSZYpR2v0J iAwLjA1 NUpbZ6DrzhK5ISDiuZXcVRH ggSCOmF9luuzns9eyfdrhIx EoINTuTWb6CTi9YZFkqWrzB iBsZWZ0 OlQ0CYT3gVCemC8ejJluobm loW1zKfh+PdiaqRqxZTB6FJ y0X4TyIpy8IZDvaPvoOI8aq GFkZGlu Rf8cvEzdwQvoKF3uQOJfkek zf879EsRtr8xqKXKzcGMuQB obCJA5B32dy9B0MVChELUhU SC4cXU8 vB2ysTpkwweynVIvnJkgqzP prOpjRNwyJJacQ177QZDqpY qzYuOsOGy1X7ViUum9TTSkw UpnAJ3s lLNlLDlpKk4itIyqsKqpLV2 fGFUesxqrk751XbFug1ljZI LymZVwHVmjLYW0Z52sc1L9Q CMwMDAw MNG5sAI6aT8hyEwuqcaagZG mdDsgdmVydGljYWwtYWxpZ2 84BUDhcUhlKlXmbOu7W7KcA qp7XVLo eXupJZ9zlZBzJVodLo0rqRp jxKdlPH1oHSRrbxbca160Mb Qwy6uqJNStaDKbPPqtLLL4E 03pl7Z8 KWVoTBHkCSQ4nWQ2fQ9tuEo nbjogbGVmdDsgdmVydGljYW umTOrmY446SMLspCjiNkWsd GllbnQg HYehLBu4M8YnIjfyvKM+PC9 4EPKeWP94jSPyuFRvh6oieX f0TvIiDERwSEF0nVltWCgfj 3JkZXIt I78urZKxe7W8SAMloJdhdST xLyBpaHG0dN2hMAvogdclx6 jrkgykPognn5jwek38mI08N 29sIHdp ZHRoPSIzMCUiIHZhbGlnbj0 leQ5jTi0+VUXpqTI8vKS3qX 1uEETdVsB3IJfeR142UdNtb CIvPjxj j0lea7crxRu0SkU3OTJnzoS ddReoLIQ6x0EeKc69X55hTZ dpZHRoPSIyMCUiIHZhbGlnb x2tdA2p Ii8+BYGgiWN5pKR0eU9nOqA tFsK8MMcwK603TkNkeVEcVn ztS78nZ4UgcPX+RUXiHya8F CBzdHls KS6qtFVxXWfxDx1pGAL2NhR cEvLjQBwfK3ChSMItvgmqeh kuhZM7HRUmYQYxcT30Fv1td DogMTBw nUWOjF8lbycdg5rzplaeClT vIGOmKXd2VSa9NHJjdCpjLn GvVZW4TuB7RLY0fPUbdE9wm Glnbjog bQ2vY0BaYZAukdnqIl65gX5 nIwRtRcN2OXcrSht+SEVZTU TCJGQYWM2GKWi2D0EiXke4R CBzdHls SU6oaLXuUWvpFy5wdQymtLn vUG9iQOLsditjWTWqgJ8sXT HecGJioNqlOO2tDQNfurnzq 250OiAx HXP1OWUarIStX4FjpE8xFeJ wJVNnNJBsL8QygBDuUQedI0 52WBtqYvK2OSFcujFxM7MhC WFsaWdu FvR2u6E8Lh4nAS7eUb0xDXa 6CZ40PV57nWNbq7K8xCN4M1 SsRUYgtjxmwynplWN7KMNmV DUwaW47 nZYvYAagIp0jt0M3k172DUE lVMWgsU65Or8bfHppDIBugK LWnB5htekik9jcysvcFpUqT DAwMDt0 BSw5XUDvnPidYaFwNNN1OiH 5ZFP0xHJmaA5vxQhzlutmzI 9wOyc+IxbiRREaclB4C0GvJ kz8EBXp gNfxYK5wbFBcHLukPo1rdEc yhXpzLV1yNPBrekvpCFVrhX 9hPQJwyDZmzNgxIZ4xMJPwb tkcn717 BrVtUXV6XTTppSLcL6PxdZ2 xKnTcOMDpRXJfJ8WxyMEwYV euV907JVimSnM3MHQocbTrK 2FsLWFs kZaeKsJ8g4R5Un0WOTunNG0 8JA62eLSog3U0iSK8E1FcBF SrtmfvwupjuBC1MATiDTXsm D80hSXd LAxgKu5ty8W3z285AGDaHYC reR62Vh5qmGxiTKEhyQDJhM 5dnfwhj2clpcwwZoAcRCCwV Bg4SFp2 CTRfcDhrHgTjBXJ7KcK1LKX 3qNZvtO2rmQnrgvkalM0kRa c+Y1R0uUQ9iCEisRtisOV+P B12du73 A5SzGjmcGtw3ZFGfUZB2fDG 3mG4sIJIkYOahx0E5wVA0B2 FllxZrku5hf7ovLWZqFXocJ 29sbGFw n0P5SYVijOW0XVHarQuqFsS iwX75Lhq+FKNsnYxou3UtFi ahm2quj6dvuVo9AkWeDMWzg mFsaWdu LKC5f7QoEo87P65vGMhgOZI xZKLxZEGoIMHvwCnhrw2xkX 9wIi8+FMHdaRS7pED8jL2dN jAlIiB2 CIzyB455KqTqsYQuHbzwt4q az0yhdPg4XlCrOPZimxNwvS jiZSD0d4HbHo39Q0ZfsNwxc 6WrQyj1 sk56wMDrg3P5pTN5M4FuAYM ajpuroLAzoWweDQ4cYBMvlp byCNBdqP5hYJFkD3e4BmEcL oQ4BJee A9HszfL8VYJqcCDuAYVyuAX TjB2lmsynr6vvyipdFbVmUU FcBMt5GDm3NKNxkRwvYdIgL XT5VyF1 BQP3nYVgqV9rjUwfmpcsbI1 wOyc+MFq0k9ugzFFuPZ8leW H3HE05OP41tRImo1R9kNZ1Y 3BhZGRp vyltqfkpiUV9YUKvNMWbtL0 6Rx7wiDqwNj4uPESxVJV4BU NvvPYqE4GatH1gDvIvQDFeJ XMqB8Dd sHTwFZhoR262SAuvGsA2ZFS wubAwM9JzEHSipQztUtQ3a3 M8Bk4WUS74SP74YN43iJChp 5G1wHS0 I4ApKESicoceqjmmcPV3OIW pTMTfnR45Kg2alWysSe3cLO WcNYF7OPJkxLZzM2FmsE0bJ iAjMDAw XHHoZ7KgpFGtMWvvE426FNn bJqG8KJCoucYdS8AqZRDvyU ydAzB7g4S3Qn2FCf45RY97I Z06cEGj l3N8bLQ1S0MhFMCxxxrbwwv adVS6EZLnGZPygU44Uf9piP koFs2bBJJaENT5HSAscBVtH 0RvnR0q HgStTGBhQHFxC9CawMDxLXv nB957YTlyInQ4VBGeiiRqS2 DuVFVnwUfpCcD0q5O1Nd2AN Xllcjo8 K7HtYyjmxAV+XT71GMOjEP5 9pHAjzHRvv8zzsXc7AaJzFH JdWLW9nEydXDopz7XcMULrW 29sbGFw z3Q2RCQlhMsab (more content not included)... Normal [facility] Coding Summary.on 02-29-2024 Coding Summary. RRCCBhht41UWr1yQf+PG hlY WQ+PA6STEHzQ52ynHSrgV3r P4SKVTsYZxyoSUQUYMrVDsD dntDwTZ9sdYSiDUAb IC8+HM2iUHMaSgwhtKQez2M 0bMU4M09bnq0tDSyzpLY7XK TqXtWetmxfk3itjPs1GIfeL mluOyBt THJhvZ45IFO0uZ61Zt07jCO exRNcl5ojyDv2OcAvOWVwVL T5mCrzMGtgm0ItKYSfX54cu DLdw9T5 RDTuvFqfoVIiCvBywJQ9yT8 nOKmewnckr4wraedlZzf6jn 88eZYgr1B7oJK2S2UmemU5M GJvbGQg YkmdpPIXjA4jqjgoy3pdawt jFlVoWSAnNSx6JWq1ZDNwbS xpYzBnGG41ZGF3OXGisvFiT 2FsLWFs cBekUdF1t9M7Jm0TY6FORto kL9BDCPTUSFqjcFQ+PC90cj 53H7QiIvqfGeb4UKUdPAI3a WI6qQ0g MQGeDTxjs4T6xMG2G7UbtxB vnl3iv6moXEBbMJzsT99grY Iie5M6XGUnaSN1BHGqdFjoK iBzaG93 Oyc+RXZodSiqz2PgVkrpm8s bw1isjEe1PzxlANSlrjMziF koMFZ4t9JyXp3hRDTmrDN7o LZ5mI1u IaIxEpI4ZMcxU639PzCquHX aYdlvK61qT7FrzSS+PHRyPj i9ACIvqAsyKA1jL1CgGPNdl mctbGVm mYlsLT7oJAEihjxhOMPeuA8 aGUIyG5q6WyMwSwD2ABpyA4 XaVPVadoksAc89pI9yYuZwL qD6NOgp J7WzcsR4KSPrhALyCFkfRMS 8W82al0I5XCVbCYXdNFZ6hZ U5bF1vlHowoncesJIluQjav mVydGlj DAhwGAmrJ754AAAslIlfAyP vZGluZyBEYXRlOiAgMDYvMj QvMjAyNDwvdGQ+DNXrHUB2o WxlPSAn zJFiWLufYh8awJrsbQniEF3 fTXGbxjqaQXAmcU8sRFKwvZ AirCufDX1pDTVwpvnxb833V iAxMHB0 RDHktXPmE6RkuC6mPvVqECP hLHNuU4LhwLDtDOthB831IH bwAoJ8PWQppfIrA1QxZABvx WduOiB0 h6N6Uj7Dt4OmwfwgR9LtkSJ lYwJgNfkoOTi1H3YjAjysoR I+AP22ATUjNB55JXz3LYG6b WxlPSdi OMHcX3IcwN4hUlPaKIGjXFU kOyc+PHRhYmxlIHdpZHRoPS xpHISiXmKtrYkvIE2fUz2pP GVyLWNv kHdjvMVrLaCjk6mvMVCoCHf sPC4axMrbI4DvrPV6AAUlz1 w3Kw58D42pL2YsdPZ+PGNvb DV8nOD8 oX0kLnKoShW8YJcaF654MzL lcVCwXxidv4jur0ecnZa0Cn T9ZJTzhjDjmIeuRQY2y2MmB a46M09p IHdpZHRoPSIxNSUiIHZhbGl ytf4mvM1iQh1+WCEkwCC9xN I6xX7iXnRsIlC9SZsdY899T nRvcCIv Rkskn0fgm4bwcEe7GxQkQAC dsmOeqYdpWWX7n4TdTx61M8 PxwXfov3KjAfa4ir62uIGwu 9M9aRJ8 U7VuNTMkhtkslJQlzQrfKP6 nVFXmpdzrBBDryF1jKKEhV9 b9JvKgQzJ9SZtrQ0ClmtE6Y GJvbGQg DTQejOKBbW6tuapjc8yzuyy sWeLuXLRpMTq6RRm9VUFkpC ebZvRjJIX7GpW2TXA2bZLyd G5duYry ekwdnZ4sHur+VUR2uSVmhRM RBZ5jQgjclZW+WNSgVVT3mS ypALffWXGamQ0bGOHnN2n3G iAwLjA1 VHviE5TuegD0BUHswSOzKDC bjVHRlE7sbdldy0lifmvbGm OqFNWgJYf4GXa4SDJutZqzE iBsZWZ0 TwG9LTU0dDFveE5nsSlmiiy orW0oAwj+UbarbHgvTKL3TD d0L2JxJjq3CUEewJovVC3ss GFkZGlu Od3sqJoroGtvYX8qHOZaczw to481EeAsk3ksOMLikHXkWA yiWHQ7Z15ff9C8XJYtYADiZ SV4rVZ9 zJ7wkHkhkcbtwGMkqBkplqV vyDcqQHplGJfhS043SWAreD ofJlJrHFt3T5ZxYnw2ELCpa FbuWG2d jVSkJVfoIs9oaLodeTwhPC2 hGFGnhpdxg043XfBxj6hgET XpjLCaQRhhTLX7Y75zg6Y9D CMwMDAw KCE3rXO1cH9myUmodpnvzUJ mdDsgdmVydGljYWwtYWxpZ2 61SXVpcSunVyVsfSs3P6JwU nq4GWMe aHefKY0obCXnVDfrBe5duSb caImhAF0yWEOcxdmvp064Pl Wnc1dnCIKayFVyARoiTBZ5E 08gk0R6 DIDnUIZiSMM9hDO9tY6aiLo nbjogbGVmdDsgdmVydGljYW dxBDnxJ829AVBnzCfsGkKbh GllbnQg YPyqTHd2Z3KdZnnziBK+PC9 5FFPiDW89kZDbdJPxx8vuaY i7EpYhXYCuJFY7xKkmGAxtp 3JkZXIt L90qcOGhx5D2JTCymNimwZF hEbNnnGN9hX0dMLetdilxy6 tamxgmXlcrl3itdy70jQ36Z 29sIHdp ZHRoPSIzMCUiIHZhbGlnbj0 fgA1sMn5+VHLgjAM0iGJ5yH 2zLXLbUrY4SOglV295MaVhz CIvPjxj v2zrr9bfrEt1PyG4CZQludG xsRzaXAC6a8HqIc15S08pCE dpZHRoPSIyMCUiIHZhbGlnb m2zyA5m Ii8+RHZihWW3eKI6wT4bFeL vLqK7VQdaA840OhVmlWHoZy mtI42hV4RckPL+FDSwVco3G CBzdHls MD3rgZEyZPxbDy1rBPF2FaC hAiNaKChaU4XjZUReyyxbhp ltyTS9VNDtAVOmeK75Sa0hk DogMTBw yTMUpD6lidgam4bbxgztXiI dHUDcZOb2BXk9UVZsfUkmIj YrOKK9NdG8TTQ2zQPrsN9sl Glnbjog hP9yQ1YyINFoolbrVb69sH2 dZqJbGjH6LGgvRfo+SEVZTU EPUWJTPE5ECPw5W0AdQdn1S CBzdHls RW3skPCmZUcqPw7vcJgtnFn lPW3oTALqfbwoXOVftT0wHA HugICnlTopAD8qSKJeqvvmz 250OiAx GVA5DKOljZLhS9UrzO7hBsF hRSMvKTDaA5FivNXrKXzeU8 73RGfgOvW5EYZtgnQjO1KtL WFsaWdu OgF0k4H2Hl0qKI1bCj7pDGs 0XV74QB48iVDeg4Z2xOO9H7 OzDPFoqlgzzfqhtER1KCFcR DUwaW47 kIAbFOriOh2if7L1s369FVU xMJRbkV99Eu2jwHlgDRBwbH OCkU9ofupdv5zkzghfZzKzL DAwMDt0 TVx5JYMbqMekNrTkKEB2WxX 3NIY1oAIfpL1cbFzouyookG 9wOyc+YcdkZVXkcoL7E4FkO dh7NLSs iIfcFV9vxBIeWOhgKm9lqSb hpHzmEK2aULGkharePYOytA 5lGDVoeKQfaJkpXU3oJCOuk ptzw260 QlVqSWB1XZQnvJToG7FleR2 dThTbJSDfKUVkE8KvjFAwFL zsV554QKblDrP2NXPappSaB 2FsLWFs tXbbZeE3c5W4Nd7DZIljNY3 2AB38eAYrt8X0dFI4L5TdNZ PeaflpowgzpIO9PYRbXXNcc A57wRFf JIgqTb5kg7E5a127YABmRZX wnS22Vo0njSryFVVfwJUBjC 5kwtjrh4pwffpgSlImDOFiR Qm5MUk5 VAIyiPioIcNoSQG0GhI6DQG 6mDFhdS2xmOsjxiuyqY6uLd c+N2S7tKC3uTYevEvtpYT+P T88of44 X8EjUpfpTep9OSMlHSR8bUU 3gF7zMHBtOFclk5N6cSI7P9 RezpVhwg9pa6irSKHhHJzcM 29sbGFw m5Z3GHBgyVW9ZAHviEkrUjV ijK01Ugq+KCNqaLscy2AxDl zyz9fgj6baoYz9ZhZeLXAof mFsaWdu WLF4o1AkDr33E05iYMxwHLG xUHLcHWHwLKHrhYkubl3pyH 9wIi8+OAJwyQF2iWR6cY5iY jAlIiB2 AXmeE079BkNjhYFwZkrlu8f ji6ojzZg7QhUbFXEmrtNsvU xmUKC2s8QwKy64Y0CrzMimr 0AoNir4 pc77gRRkd8F6hFV8D8OhBXR qdojcvPQcgOpdSF5oFYZoid hyRANbxH0iCWRrJ3w3SrYxX aX8OIrw Q3PyliY2NZNrqEHoWDPkuJC YdK0ebcxfv7irdjegVrKbPK IkZVr8IEl6GKZxjKswQmGnL FS6UkQ9 YCT8hJUvoU4trZbkbnaklX8 wOyc+JEp5e5quiHCeNH9xeK M7SO69GF10sMJpy3P3jNH0N 3BhZGRp ojxybaeouDU5XPOeGZYooL5 6Su0oxGezMy8zBQYzXVY6WH FubRVbH3ZesY8dUpZbZMPxX CVjU4Kg tTXiPGcxQ596YEyxLkK8NVV ihkLcQ4PoPWQdiBpsBsT8i4 C4Wg3ANQ49DS10EO26mCWnb 6W1cFT5 K4JmVEUtieuynkwhgKT5EJQ mYRNszT16Cc9fjXztDe6oCE WoPZI7UZZgrSKvH7LluN5gZ iAjMDAw ZGFcC5JqySGeCPxoP445NDh nUjG0ZWSmfjTyZ2RySRCosB ysZyC9o8W0Hu0CFa40YJ47J T72yAFg e5J6cGP1E6KrEBHtfhofizi opRF1DCLoTXDanJ48Ab4dcW jvUh5sHAHgPNF7VTTyrWWfF 6DumA6c TiGjNMLtGIVwU4LgbKWcNBj bN560KSxqSyB2ZUJpltXdH4 GhCXMcgWhqCjG1m5K4Fb5YH Xllcjo8 V6McIkirvLB+WV76FYUlED9 9xSDzlCGbq8orxRk6TcWfVS NuDJV7rJkfZMjxx9ShCICuS 29sbGFw p4H4CXNbkDupt (more content not included)... Normal [facility] Consent for Treatmenton 02-06 Consent for Treatment [id number]#1.00T IFF Normal [facility] Laboratory Outside Office Co pyon 02-25-2024 Laboratory Outside Office Copy [id number]#1.00 TIFF Normal [facility] Outside Records Officeon Outside Records Office [id number]#1.00 TIFF Normal [facility] CBC w/ Auto Diffon 4 Basophils/100 WBC (Bld) 0.6 % Normal 0.0-2.0 [facility] Comment on above: Performed By: #### 2 [id number] #### [facility] [address] [place] [address] Basophils/Leukocytes Auto (Bld) [Pure # fraction] 0.0 E9/L Normal 0.0-0.2 [facility] Comment on above: Performed By: #### 2 [id number] #### [facility] [address] [place] [address] Eosinophils (Bld) [#/Vol] 0.1 E9/L Normal 0.0-0.5 [facility] Comment on above: Performed By: #### 2 [id number] #### [facility] [address] [place] [address] Eosinophils/100 WBC (Bld) 3.8 % Normal 0.0-8.0 [facility] Comment on above: Performed By: #### 2 [id number] #### [facility] [address] [place] [address] Erythrocyte distribution width (RBC) [Ratio] 15.5 % High 10.9-14.2 [facility] Comment on above: Performed By: #### 2 [id number] #### [facility] [address] [place] [address] Hematocrit (Bld) [Volume fraction] 33.1 % Low 37.7-49.0 [facility] Comment on above: Performed By: #### 2 [id number] #### [facility] [address] [place] [address] Hemoglobin (Bld) [Mass/Vol] 11.5 g/dL Low 13.5-17.5 [facility] Comment on above: Performed By: #### 2 [id number] #### [facility] [address] [place] [address] Lymphocytes (Bld) [#/Vol] 0.8 E9/L Low 1.0-4.0 [facility] Comment on above: Performed By: #### 2 [id number] #### [facility] [address] [place] [address] Lymphocytes/100 WBC (Bld) 21.1 % Normal 14.0-50.0 [facility] Comment on above: Performed By: #### 2 [id number] #### [facility] [address] [place] [address] MCH (RBC) [Entitic mass] 37.1 pg High 27.0-34.0 [facility] Comment on above: Performed By: #### 2 [id number] #### [facility] [address] [place] [address] MCHC (RBC) [Mass/Vol] 34.7 g/dL Normal 31.4-36.0 [facility] Comment on above: Performed By: #### 2 [id number] #### [facility] [address] [place] [address] MCV (RBC) [Entitic vol] 106.8 fL High 80.0-100.0 [facility] Comment on above: Performed By: #### 2 [id number] #### [facility] [address] [place] [address] Monocytes (Bld) [#/Vol] 0.4 E9/L Normal 0.2-1.0 [facility] Comment on above: Performed By: #### 2 [id number] #### [facility] [address] [place] [address] Neutrophils (Bld) [#/Vol] 2.4 E9/L Normal 2.0-7.5 [facility] Comment on above: Performed By: #### 2 338318 #### [facility] [address] [place] [address] Neutrophils/100 WBC (Bld) 65.0 % Normal 36.0-75.0 [facility] Comment on above: Performed By: #### 2 538237 #### [facility] [address] [place] [address] Platelet 73.0 E9/L Low 150.0-500.0 [facility] Comment on above: Result Comment: Tierney pheral smear review performed. Performed By: #### 2 837180 #### [facility] [address] [place] [address] Platelet mean volume (Bld) [Entitic vol] 8.8 fL Normal 6.4-10.8 [facility] Comment on above: Performed By: #### 2 083651 #### [facility] [address] [place] [address] RBC (Bld) [#/Vol] 3.1 E12/L Low 4.3-5.9 [facility] Comment on above: Performed By: #### 2 421040 #### [facility] [address] [place] [address] WBC corrected for nucl RBC Auto (Bld) [#/Vol] 3.8 E9/L Low 4.0-11.0 [facility] Comment on above: Performed By: #### 2 663398 #### [facility] [address] [place] [address] CHEMISTRYOrdered By: SYSTEM SYSTEM on 02-20-2024 Albumin [...] 02-20-2024 Albumin [Mass/Vol] 3.1 g/dL Low 3.3-5.0 [facility] Comment on above: Performed By: #### 2 724884 #### [facility] [address] [place] [address] Albumin/Globulin (S) [Mass conc ratio] 0.9 Low 1.1-2.2 [facility] Comment on above: Performed By: #### 2 157399 #### [facility] [address] [place] [address] ALP [Catalytic activity/Vol] 190 Int._Unit/L High 21-98 [facility] Comment on above: Performed By: #### 2 964192 #### [facility] [address] [place] [address] ALT No additional P-5'-P [Catalytic activity/Vol] 77 Int._Unit/L High 6-46 [facility] Comment on above: Performed By: #### 2 179776 #### [facility] [address] [place] [address] Anion gap [Moles/Vol] 10 mmol/L Normal 6-16 [facility] Comment on above: Performed By: #### 2 134385 #### [facility] [address] [place] [address] AST [Catalytic activity/Vol] 120 Int._Unit/L High 5-43 [facility] Comment on above: Performed By: #### 2 234987 #### [facility] [address] [place] [address] Bilirubin [Mass/Vol] 7.8 mg/dL High 0.0-1.1 [facility] Comment on above: Performed By: #### 2 730999 #### [facility] [address] [place] [address] Calcium [Mass/Vol] 8.4 mg/dL Low 8.9-11.1 [facility] Comment on above: Performed By: #### 2 663176 #### [facility] [address] [place] [address] Chloride [Moles/Vol] 103 mmol/L Normal 101-111 [facility] Comment on above: Performed By: #### 2 715440 #### [facility] [address] [place] [address] CO2 [Moles/Vol] 27 mmol/L Normal 21-31 [facility] Comment on above: Performed By: #### 2 620815 #### [facility] [address] [place] [address] Creatinine [Mass/Vol] 0.6 mg/dL Normal 0.5-1.3 [facility] Comment on above: Performed By: #### 2 672170 #### [facility] [address] [place] [address] Globulin (S) [Mass/Vol] 3.4 g/dL Normal 1.4-4.0 [facility] Comment on above: Performed By: #### 2 891817 #### [facility] [address] [place] [address] Glucose [Mass/Vol] 192 mg/dL Normal 55-199 [facility] Comment on above: Performed By: #### 2 871613 #### [facility] [address] [place] [address] Potassium [Moles/Vol] 3.6 mmol/L Normal 3.5-5.3 [facility] Comment on above: Performed By: #### 2 490012 #### [facility] [address] [place] [address] Protein [Mass/Vol] 6.5 g/dL Normal 6.0-7.8 [facility] Comment on above: Performed By: #### 2 507597 #### [facility] [address] [place] [address] Sodium [Moles/Vol] 136 mmol/L Normal 135-145 [facility] Comment on above: Performed By: #### 2 656267 #### [facility] [address] [place] [address] Urea nitrogen [Mass/Vol] 6 mg/dL Normal 5-21 [facility] Comment on above: Performed By: #### 2 972256 #### [facility] [address] [place] [address] Urea nitrogen/Creatinine [Mass ratio] 10 No Units Normal 10-20 [facility] Comment on above: Performed By: #### 2 171210 #### [facility] [address] [place] [address] Consent for Treatmenton 06- Consent for Treatment [id number]#1.00T IFF Normal [facility] Ferritinon 02-20-2024 Ferritin [Mass/Vol] 527 ng/mL High 24-336 [facility] Comment on above: Performed By: #### 2 296736 #### [facility] [address] [place] [address] HEMATOLOGYOrdered By: SYSTEM SYSTEM on 02-20-2024 Basophils/100 [...] 02-20-2024 Iron [Mass/Vol] 227 microgram/dL High 35-153 [facility] Comment on above: Performed By: #### 2 547352 #### [facility] [address] [place] [address] Iron Saturationon 02-20-2024 Iron binding capacity [Mass/Vol] 230 microgram/dL Low 250-400 [facility] Comment on above: Performed By: #### 2 481017 #### [facility] [address] [place] [address] Iron saturation [Mass fraction] 99 % High 20-50 [facility] Comment on above: Performed By: #### 2 486474 #### [facility] [address] [place] [address] Transferrinon 02-20-2024 Transferrin [Mass/Vol] 164 mg/dL Low 200-370 [facility] Comment on above: Performed By: #### 2 101741 #### [facility] [address] [place] [address] Vit B12on 02-20-2024 Cobalamin (Vitamin B12) [Mass/Vol] pg/mL Normal 50-1500 [facility] Comment on above: Performed By: #### 2 655482 #### [facility] [address] [place] [address] eGFRon 02-20-2024 eGFR 126 mL/min/1.73 m2 Normal >=59 [facility] Comment on above: Order Comment: Order added by Discern Expert. Performed By: #### 1 [id number] #### [facility] [address] [place] [address] Family Medicine Office/Clini c Noteon 01-29-2024 Family [...] following symptoms? Chest Pain? no Palpitations? no AG/SOB? no Headache? yes Patient states he had a frontal headache sometime last week Peripheral Edema? yes Patient states he has bilateral leg swelling at times Light Headedness? no History of Present Illness Will Ralph is a 38-year-old male who presents for evaluation of multiple medical concerns. Cholelithiasis. The patient sought consultation at the [facility] in [place], but he was informed that surgical consultation must be at the main campus. He subsequently scheduled an appointment and was informed that they can do the consultation and they will contact [facility]. He was called again and was informed that he is required to consult with a core machine operator. He currently does not experience any pain [...] present. Neurological (more content not included)... Normal [facility] Comment on above: Result Comment: [...] 4 mg Tab) potassium chloride (Potassium Chloride (Nvl-Gudg-Agz M20) 20 mEq oral tablet, extended release) [...] Barby MULTANI, Iglesia Mary Where: [facility] [place] 2023 3:15 PM EDT With: Mario Evans MD Where: [facility] Normal [facility] Patient Educationon 01-27-20 Patient Education Cardiovascular Peripheral [...] these instructions at home: Medicines ? Take pgdc-wzb-hdzrbpf and prescription medicines only as told by your health care provider. ? If you are taking blood thinners: ? Talk with your health care provider before you take any medicines that contain aspirin or NSAIDs, such as ibuprofen. These medicines (more content not included)... Normal [facility] Telephone Encounteron 2023 Software Development Analyst Authentication Interface Message Text Pharmacy is attempting to schedule an appointment for this patient. Per protocol, we will make 1 attempt to contact patient before routing to nurse for follow up. Medication request adjusted to only a 3 month supply to allow time for appointment to be scheduled. Thank you. Normal [facility] [email or web address] [facility] Physician Referralon 024 Physician Referral [id number]#1.00T IFF Normal [facility] US Abdomen, Limitedon 2023 US Abdomen, Limited [...] MD Transcribed by: 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 Normal [facility] Consent for Treatmenton 12-07 Consent for Treatment [id number]#1.00T IFF Normal [facility] Physician Referralon 024 Physician Referral [id number]#1.00T IFF Normal [facility] CNOVon 12-30-2023 CNOV Office Visit (GENSME ) RAMOWILL ([id number]) 1985 M Date Time Provider Department 12/30/23 [...] with abdominal pain and abnormal labs from [facility]. These values are visible in [...] the option of seeing [facility] surgery [facility] as this would be the best [...] gallstones. Blood work was also performed through [facility] along with the CT scan. His liver function tests were elevated along with his INR and bilirubin aware of his baseline laboratory values. He does see a core machine operator and is being treated for liver failure. [...] naloxone 4 mg/actuation nasal spray (NARCAN) 1 Freeburn by nasal (alternating) route. oxyCODONE ir (OXYIR) [...] visit: Most recent labs and imaging results. Margaert Zuñiga MD Allergies As of Date: 12/30/2023 Noted Allergy Reaction AMOXICILLIN 02/02/2003 Date Reviewed: 12/30/2023 Reviewed by: Desiree Hernandez RN - Fully Assessed Reason for Visit: New Patient [172] Primary Visit Diagnosis:Gallstones [K80.20] Order(s):CONSULT TO L[facility] [7242373] Order #: [id number]: 1 Prescriptions as of 12/30/2023 - CHOLECALCIFEROL, [...] - myc (more content not included)... Normal [facility] Office/Clini c Noteon 12-24-2023 Family Medicine Office/Clinic Note Chief Complaint TCM follow up. Dx Intractable pain and cirrhosis HPI Staff Reason for Visit: TCM Follow up Acute: Patient states he is having stomach issues (for the past month) and doesn't know if it is a parasite. Patient states he is having chronic headaches, fatigue, and uncontrollable gas. [place] [facility] [place]: 12/11/2023 Discharge date: 12/13/2023 Symptoms [...] His appointment with Dr. 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 Cholelithiasis and epigastric pain. [...] feels across his abdomen. He saw his planning supervisor, Dr. Evans who did an endoscopy in [...] for 3 days. He reports sleeping at [facility] (more content not included)... Normal [facility] Comment on above: Result Comment: Elec tronically Signed By: Loreta Padilla\.br\Date and Time Signed: 12/24/23 19:04 EDT\.br\Electronically Co-Signed By: Dagmar King\.br\Date and Time Co-Signed: 12/23/23 17:02 EDT Physician Referralon 024 Physician Referral [id number]#1.00 TIFF Normal [facility] Patient Educationon 12-23-19 24 Patient Education Gastroenterology [...] added (diluted fruit juice). ? Eat bland, oilc-cz-teaehf foods in small amounts as you are able. These foods include bananas, applesauce, rice, lean meats, toast, and crackers. ? Avoid drinking fluids that contain a lot of sugar or caffeine, such as energy drinks, sports drinks, and soda. ? Avoid alcohol. ? Avoid spicy or fatty foods. General instructions ? Take rkaz-dsh-jclfwir and prescription medicines only as told by [...] and water are not available, use hand hose stripper. ? Make sure that everyone in your [...] recommendations for eating and drinking and take wagq-zjy-hcqmcdd and prescription medicines only as told by [...] provider. Document Revised: 02/28/2022 Document Reviewed: 02/28/2022 [employer] Patient Education ? 2022 [employer]ugo. Esophageal Variceal Ligation Esophageal variceal ligation (EVL) [...] their blood (more content not included)... Normal [facility] .Interpretation:on 4 HCV Ab IA Ql Comment Invalid Interpretation Code [facility] Comment on above: Result Comment: Not infected with HCV unless early or acute infection is suspected (which may be delayed in an immunocompromised individual), or other evidence exists to indicate HCV infection. Performed at: Lab[address] [id number] PhD Poncho Prater Performed By: #### 2 574824, 048126460, 16258013, 3177469, 4082303, 826480149, 7158442, 2862884, 15864332, 0602106, 0116394, 1254160, 2515832604, 541700885, 7288748009, 8662650 ####[facility] [address] [place] [address] Acute Hepatitis A B C Panelo n 12-22-2023 HAV IgM IA Ql Negative Invalid Interpretation Code Negative [facility] Comment on above: Performed By: #### 2 514112, 694384701, 99180471, 8732827, 8383415, 599845398, 8129890, 6317372, 79943025, 1588776, 2515677, 1761486, 7318521345, 765101048, 3276702824, 5953556 ####[facility] [address] [place] [address] HBV core IgM IA Ql Negative Invalid Interpretation Code Negative [facility] Comment on above: Performed By: #### 2 203821, 740598282, 08388326, 3800317, 9410406, 345537564, 7482227, 8816297, 73226664, 3381275, 3438049, 2845083, 6106670600, 493968883, 1569526346, 4023619 ####[facility] [address] [place] [address] HBV surface Ag IA Ql Negative Invalid Interpretation Code Negative [facility] Comment on above: Performed By: #### 2 281436, 992701979, 25274509, 0366417, 8691621, 367464541, 5559761, 9624471, 30886972, 4897156, 8213720, 6873997, 6386231499, 919749198, 7431285660, 6924990 ####[facility] [address] [place] [address] HCV IgG IA Ql Non-Reactive Invalid Interpretation Code Non Reactive [facility] Comment on above: Result Comment: [facility] [address] [place] [id number] PhD Poncho Prater Performed By: #### 2 748334, 695925135, 31397184, 6202901, 3493515, 373912020, 3464818, 0789910, 79733964, 6089215, 4321985, 9958136, 8517794276, 582797271, 8241400265, 5454988 ####[facility] [address] [place] [address] HIV Screen 4th Generation wR fxon 12-22-2023 HIV 1+2 Ab+HIV1 p24 Ag IA Ql Non-Reactive Invalid Interpretation Code Non Reactive [facility] Comment on above: Result Comment: HIV Negative HIV-1/HIV-2 antibodies and HIV-1 p24 antigen were NOT detected. There is no laboratory evidence of HIV infection. Performed at: [address] [id number] PhD Poncho Prater Performed By: #### 2 209833, 548731789, 49757984, 2604337, 5636111, 356637526, 2447534, 9512966, 99313217, 4961844, 9368607, 6671948, 1790903253, 143615309, 0023542336, 4194041 ####[address] [place] [address] Ammoniaon 12-21-2023 Ammonia (P) [Moles/Vol] 46 mcmol High 11-35 [facility] Comment on above: Performed By: #### 2 392947, 4594051, 6327107, 6493221, 7775760, 44621426, 2576745, 7721352 ####[facility] [address] [place] [address] Bili Directon 12-21-2023 Bilirubin.direct [Mass/Vol] 1.6 mg/dL High 0.0-0.4 [facility] Comment on above: Order Comment: Order Added by Discern Expert. Performed By: #### 2 860210, 4295237, 1453012, 5901153, 0016785, 40503618, 3618597, 9696593 ####[place] [address] CBC w/ Auto Diffon 4 Basophils/100 WBC (Bld) 0.5 % Normal 0.0-2.0 [facility] Comment on above: Performed By: #### 2 121435, 9204261, 1561465, 7898411, 8790890, 09475506, 1971691, 8527479 ####[address] [address] Basophils/Leukocytes Auto (Bld) [Pure # fraction] 0.0 E9/L Normal 0.0-0.2 [facility] Comment on above: Performed By: #### 2 027104, 7983663, 5035643, 3105365, 7486968, 51364833, 3008144, 5723723 ####[address] [address] Eosinophils (Bld) [#/Vol] 0.1 E9/L Normal 0.0-0.5 [facility] Comment on above: Performed By: #### 2 209346, 2021028, 4774895, 4452972, 3056846, 74206501, 0176861, 4118850 ####[address] [address] Eosinophils/100 WBC (Bld) 2.4 % Normal 0.0-8.0 [facility] Comment on above: Performed By: #### 2 895123, 1461590, 6049523, 5424892, 5950923, 56936879, 9584163, 8506362 ####[address] [address] Erythrocyte distribution width (RBC) [Ratio] 15.9 % High 10.9-14.2 [facility] Comment on above: Performed By: #### 2 372980, 9200905, 6496578, 2029143, 3477286, 11465431, 8650356, 7077459 ####[address] [address] Hematocrit (Bld) [Volume fraction] 32.3 % Low 37.7-49.0 [facility] Comment on above: Performed By: #### 2 862919, 8137917, 2228403, 3019394, 2727313, 43857574, 1661588, 3550983 ####[facility] [address] [place] [address] Hemoglobin (Bld) [Mass/Vol] 11.0 g/dL Low 13.5-17.5 [facility] Comment on above: Performed By: #### 2 662713, 1634301, 9049527, 5860795, 4232623, 35149991, 8288198, 7931856 ####[address] [place] [address] Lymphocytes (Bld) [#/Vol] 0.9 E9/L Low 1.0-4.0 [facility] Comment on above: Performed By: #### 2 789080, 0366934, 8799399, 8992935, 7669600, 33351116, 0709422, 0122536 ####[address] [address] Lymphocytes/100 WBC (Bld) 19.5 % Normal 14.0-50.0 [facility] Comment on above: Performed By: #### 2 423567, 4936024, 2315102, 8135689, 0664510, 92744450, 6553537, 7243136 ####[address] [place] [address] MCH (RBC) [Entitic mass] 36.3 pg High 27.0-34.0 [facility] Comment on above: Performed By: #### 2 906959, 8872581, 9255390, 1153563, 9196708, 63442411, 2058641, 8069017 ####[address] [address] MCHC (RBC) [Mass/Vol] 34.2 g/dL Normal 31.4-36.0 [facility] Comment on above: Performed By: #### 2 496255, 2823196, 5765542, 5416486, 9166759, 58312920, 3032605, 3524983 ####[address] [place] [address] MCV (RBC) [Entitic vol] 106.1 fL High 80.0-100.0 [facility] Comment on above: Performed By: #### 2 804675, 2514030, 2405485, 6629267, 1355889, 90738525, 1172136, 8982290 ####[address] [address] Monocytes (Bld) [#/Vol] 0.4 E9/L Normal 0.2-1.0 [facility] Comment on above: Performed By: #### 2 322082, 0198591, 3180759, 8368837, 7654185, 34349603, 1383107, 7999579 ####[address] [address] Neutrophils (Bld) [#/Vol] 3.0 E9/L Normal 2.0-7.5 [facility] Comment on above: Performed By: #### 2 629391, 4041815, 2194396, 4757746, 6634099, 86095428, 4655734, 8328194 ####[address] [address] Neutrophils/100 WBC (Bld) 68.7 % Normal 36.0-75.0 [facility] Comment on above: Performed By: #### 2 418036, 0647711, 7254270, 1072444, 7283247, 39365337, 3202575, 5911665 ####[address] [place] [address] Platelet 80.0 E9/L Low 150.0-500.0 [facility] Comment on above: Performed By: #### 2 863526, 3965519, 6113119, 1765782, 7195592, 86503791, 6289159, 9830013 ####[facility] [address] [place] [address] Platelet mean volume (Bld) [Entitic vol] 8.2 fL Normal 6.4-10.8 [facility] Comment on above: Performed By: #### 2 273717, 3975675, 4059538, 6324235, 7110256, 67376075, 7539761, 7289697 ####[facility] [address] [place] [address] RBC (Bld) [#/Vol] 3.0 E12/L Low 4.3-5.9 [facility] Comment on above: Performed By: #### 2 650205, 5587724, 8233236, 2330253, 7355314, 45930904, 3597609, 0244432 ####[facility] [address] [place] [address] WBC corrected for nucl RBC Auto (Bld) [#/Vol] 4.4 E9/L Normal 4.0-11.0 [facility] Comment on above: Performed By: #### 2 184035, 8016938, 3609586, 9944753, 0819247, 49783163, 8913070, 4770925 ####[facility] [address] [place] [address] CHEMISTRYOrdered By: SYSTEM SYSTEM on 12-21-2023 25-hydroxyvitamin [...] (Bld) [Mass fraction] 4.0 % Normal <=5.9% [facility] ChemAutoSS CMPon 12-21-2023 Albumin [Mass/Vol] 3.6 g/dL Normal 3.3-5.0 [facility] Comment on above: Performed By: #### 2 803933, 8852181, 9419990, 5585929, 4358600, 38931505, 6240058, 7570681 ####[facility] [address] [place] [address] Albumin/Globulin (S) [Mass conc ratio] 1.1 Normal 1.1-2.2 [facility] Comment on above: Performed By: #### 2 962636, 4472207, 1678959, 6755563, 5069614, 08038784, 9046457, 7991027 ####[facility] [address] [place] [address] ALP [Catalytic activity/Vol] 262 Int._Unit/L High 21-98 [facility] Comment on above: Performed By: #### 2 602053, 9059635, 3675655, 3694238, 7770464, 38093222, 8605533, 8371892 ####[facility] [address] [place] [address] ALT No additional P-5'-P [Catalytic activity/Vol] 60 Int._Unit/L High 6-46 [facility] Comment on above: Performed By: #### 2 126824, 9660904, 7414631, 6449863, 2038471, 70885495, 0095278, 2275615 ####[facility] [address] [place] [address] Anion gap [Moles/Vol] 13 mmol/L Normal 6-16 [facility] Comment on above: Performed By: #### 2 166967, 0470524, 4946787, 0877272, 9127945, 78026974, 2441113, 8380802 ####[facility] [address] [place] [address] AST [Catalytic activity/Vol] 91 Int._Unit/L High 5-43 [facility] Comment on above: Performed By: #### 2 675738, 4728482, 1951769, 0996654, 6235319, 39157081, 5613665, 5478342 ####[facility] [address] [place] [address] Bilirubin [Mass/Vol] 7.8 mg/dL High 0.0-1.1 [facility] Comment on above: Performed By: #### 2 509011, 6108079, 4867736, 1857667, 9963183, 07619800, 2058569, 1323151 ####[address] [place] [address] Calcium [Mass/Vol] 9.2 mg/dL Normal 8.9-11.1 [facility] Comment on above: Performed By: #### 2 137992, 0878171, 4751138, 4855204, 2344787, 53618649, 8600508, 6350306 ####[facility] [place] [address] Chloride [Moles/Vol] 99 mmol/L Low 101-111 [facility] Comment on above: Performed By: #### 2 739689, 8083157, 9886962, 3312833, 0077445, 16654076, 9638949, 7043764 ####[facility] [address] [place] [address] CO2 [Moles/Vol] 25 mmol/L Normal 21-31 [facility] Comment on above: Performed By: #### 2 675287, 3596903, 7389990, 4914664, 8115118, 99196753, 7582390, 2910946 ####[facility] [address] [place] [address] Creatinine [Mass/Vol] 0.7 mg/dL Normal 0.5-1.3 [facility] Comment on above: Performed By: #### 2 868939, 9628469, 2669751, 2632340, 5583924, 25394775, 3166278, 1870002 ####[facility] [address] [place] [address] Globulin (S) [Mass/Vol] 3.4 g/dL Normal 1.4-4.0 [facility] Comment on above: Performed By: #### 2 379098, 7407420, 1085821, 4764674, 7849131, 39984727, 4245521, 6105061 ####[facility] [address] [place] [address] Glucose [Mass/Vol] 112 mg/dL Normal 55-199 [facility] Comment on above: Performed By: #### 2 084130, 2498383, 8664750, 0102140, 1553128, 02156666, 0099580, 4578289 ####[facility] [address] [place] [address] Potassium [Moles/Vol] 3.8 mmol/L Normal 3.5-5.3 [facility] Comment on above: Performed By: #### 2 726645, 5051144, 9053154, 0392649, 3266224, 64980955, 6748851, 4654343 ####[facility] [address] [place] [address] Protein [Mass/Vol] 7.0 g/dL Normal 6.0-7.8 [facility] Comment on above: Performed By: #### 2 571891, 0003472, 9699264, 0093657, 1145966, 96712208, 1471230, 7343166 ####[facility] [address] [place] [address] Sodium [Moles/Vol] 133 mmol/L Low 135-145 [facility] Comment on above: Performed By: #### 2 086113, 2311316, 1734213, 2859336, 5102954, 79601648, 1682797, 6523318 ####[facility] [address] [place] [address] Urea nitrogen [Mass/Vol] 8 mg/dL Normal 5-21 [facility] Comment on above: Performed By: #### 2 981311, 9360847, 2555877, 6220151, 0285855, 97342166, 0890968, 1643071 ####[facility] [address] [place] [address] Urea nitrogen/Creatinine [Mass ratio] 11 No Units Normal 10-20 [facility] Comment on above: Performed By: #### 2 678445, 9714154, 9361912, 3325203, 3477348, 10225846, 3252151, 6764479 ####[facility] [address] [place] [address] COAGULATIONOrdered By: Gideon Murillo on 12-21-2023 INR Coag (PPP) [Relative time] 1.81 {INR} Invalid Interpretation Code [facility] Auto Coag Comment on above: Interpretive Data: I NR results are specifically intended to assess patients stabilized on long-term Anticoagulation therapy suggested INR s Less Intensive Anticoagulation 2.0 3.0 Conventional Range 3.0 4.5 PT Coag (PPP) [Time] 20.4 s High 9.4 - 1 2.5 second(s) [facility] Coag Comment on above: Interpretive Data: [...] the same coagulation reagent and instrumentation as [facility]. Currently there are no coagulation studies available worldwide for children to 14 days, and no normal ranges. CRPon 12-21-2023 CRP [Mass/Vol] mg/L Normal <=1.9 [facility] Comment on above: Performed By: #### 2 571201, 9082702, 9372179, 2668453, 7118140, 25297945, 6234669, 3672538 ####[facility] [address] [place] [address] Consent for Treatmenton 12-06 Consent for Treatment [id number] IFF Normal [facility] Ferritinon 12-21-2023 Ferritin [Mass/Vol] 385 ng/mL High 24-336 [facility] Comment on above: Performed By: #### 2 125545, 596724254, 12959006, 0736065, 3661851, 576432165, 8089646, 2408327, 84266414, 9756759, 1077855, 4694283, 2768809960, 663181267, 1270732085, 1844140 ####[facility] [address] [place] [address] Folateon 12-21-2023 Folate [Mass/Vol] 19.8 ng/mL Normal >=6.7 [facility] Comment on above: Performed By: #### 2 529037, 235657143, 55078516, 3108453, 6549107, 367333017, 9550667, 7316730, 38839833, 6280887, 4378910, 5186342, 2774176041, 592560127, 6076569705, 2770787 ####[facility] [address] [place] [address] GGTon 12-21-2023 Gamma glutamyl transferase [Catalytic activity/Vol] 36 Int._Unit/L Normal 6-48 [facility] Comment on above: Performed By: #### 2 668573, 620589022, 63974715, 9905261, 5749944, 880838582, 6923372, 5736132, 49921985, 3288279, 0883056, 5062034, 0596593780, 380243074, 1489013277, 2289107 ####[facility] [address] [place] [address] HEMATOLOGYOrdered By: SYSTEM SYSTEM on 12-21-2023 Basophils/100 [...] Normal 4.0 - 11.0 E9/L Remisol Heme BgcC6prs 12-21-2023 HbA1c (Bld) [Mass fraction] 4.0 % Normal <=5.9 [facility] Comment on above: Performed By: #### 2 890265, 422294647, 36244746, 3402399, 6117388, 131250088, 7705427, 8275414, 32322424, 8735303, 6154509, 2154156, 2600315931, 723858770, 5668261270, 1841004 ####[facility] [address] [place] [address] Ironon 12-21-2023 Iron [Mass/Vol] 269 microgram/dL High 35-153 Fis [facility] Comment on above: Performed By: #### 2 455628, 260660524, 73883560, 8069148, 3220950, 520483891, 2312176, 9680234, 07197191, 0154028, 0024674, 2271135, 8654013054, 747441252, 2491538559, 7262206 ####[facility] [address] [place] [address] Lipase Levelon 12-21-2023 Lipase [Catalytic activity/Vol] 19 U/L Normal 13-58 [facility] Comment on above: Performed By: #### 2 808969, 3385475, 4656126, 4836983, 6538821, 67326186, 3355577, 7978673 ####[facility] [address] [place] [address] Magnesiumon 12-21-2023 Magnesium [Mass/Vol] 1.6 mg/dL Normal 1.3-2.4 [facility] Comment on above: Performed By: #### 2 426843, 213703767, 70176119, 6280247, 2800679, 722352887, 1714520, 8734455, 97416442, 7910492, 6506437, 3132226, 9960440963, 825960671, 4644624638, 9775940 ####[facility] [address] [place] [address] PTon 12-21-2023 INR Coag (PPP) [Relative time] 1.81 {INR} Invalid Interpretation Code [facility] Comment on above: Result Comment: INR results are specifically intended to assess patients stabilized on long-term Anticoagulation therapy suggested INR?s ?Less Intensive Anticoagulation? 2.0 ? 3.0 Conventional Range 3.0 ? 4.5 Performed By: #### 2 902114, 3754413, 9640520, 4241473, 0348171, 28331523, 7071088, 0418808 ####[facility] [address] [place] [address] PT Coag (PPP) [Time] 20.4 second(s) High 9.4-12.5 [facility] Comment on above: Result Comment: 15 d [...] the same coagulation reagent and instrumentation as [facility]. Currently there are no coagulation studies available worldwide for children to 14 days, and no normal ranges. Performed By: #### 2 954605, 2741604, 2696171, 5836590, 8683053, 36284621, 5530212, 4301376 ####[facility] [address] [place] [address] Phosphoruson 12-21-2023 Phosphate [Mass/Vol] 3.6 mg/dL Normal 1.9-4.6 [facility] Comment on above: Performed By: #### 2 517510, 303601043, 50488655, 4139230, 1551570, 752379439, 3049210, 2605770, 45117879, 5543748, 8128742, 6842170, 1137604009, 693227686, 4861322244, 5177727 ####[facility] [address] [place] [address] Retic Counton 12-21-2023 Reticulocytes/100 RBC (Bld) 3.6 % High .5-2.2 [facility] Comment on above: Performed By: #### 2 670471, 524730777, 67450271, 0023010, 1000768, 283029818, 8737894, 5980026, 66380353, 4521225, 7689425, 3567343, 1909990148, 356703583, 8544992390, 5833533 ####[place] [place] [address] TIBC Calculatedon 12-21-2023 Iron binding capacity [Mass/Vol] 288 microgram/dL Normal 250-400 [facility] Comment on above: Performed By: #### 2 045110, 748273317, 44739358, 9079029, 4922810, 476439107, 2971168, 2704487, 04992130, 0343835, 3241542, 1135895, 8852577853, 630133761, 3036326594, 0652148 ####[place] [place] [address] Transferrin [Mass/Vol] 206 mg/dL Normal 200-370 [facility] Comment on above: Performed By: #### 2 971992, 358945496, 55104351, 9483142, 0300234, 893201782, 6666973, 5492476, 07148958, 3476618, 2392654, 2272176, 1592490175, 844256715, 7561187822, 0717133 ####[address] [address] TSH With T4fr Reflexon 12-20 TSH Qn 1.64 m[IU]/L Normal 0.34-5.60 [facility] Comment on above: Performed By: #### 2 964647, 216245795, 63957571, 3312258, 9527462, 225842383, 1796148, 7207287, 86190463, 8385436, 4786621, 1777413, 2221942597, 614085077, 7685997472, 3232772 ####[place] [place] [address] UA with Cult Rflxon 12-21-19 24 Bilirubin Ql (U) Negative Normal Negative [facility] Comment on above: Performed By: #### 4 966851702 ####[facility] [address] [facility] [place] [address] Clarity (U) Clear Normal Clear [facility] Comment on above: Performed By: #### 4 403178016 ####[facility] [address] [facility] [place] [address] Color (U) Yellow Normal Yellow [facility] Comment on above: Result Comment: Micr oscopic readings are only performed on those samples that meet specific criteria set forth by [facility]. Performed By: #### 4 [id number] ####[facility] [address] [place] [address] Glucose Ql (U) Negative Normal Negative [facility] Comment on above: Performed By: #### 4 667038559 ####[facility] [address] [facility] [place] [address] Hemoglobin Auto test strip (U) [Mass/Vol] Trace Abnormal Negative [facility] Comment on above: Performed By: #### 4 288518147 ####[facility] [address] [place] [address] Ketones Auto test strip Ql (U) Negative Normal Negative [facility] Comment on above: Performed By: #### 4 789794922 ####[facility] [address] [facility] [place] [address] Leukocyte esterase Auto test strip Ql (U) Negative Normal Negative [facility] Comment on above: Performed By: #### 4 350167621 ####[facility] [address] [place] [address] Nitrite Auto test strip Ql (U) Negative Normal Negative [facility] Comment on above: Performed By: #### 4 494374468 ####[facility] [address] [facility] [place] [address] pH (U) 6.5 [pH] Invalid Interpretation Code 5.0-9.0 [facility] Comment on above: Performed By: #### 4 069952161 ####[facility] [address] [place] [address] Protein Ql (U) Negative Normal Negative [facility] Comment on above: Performed By: #### 4 404390671 ####[facility] [address] [place] [address] Specific gravity (U) [Rel density] 1.009 Invalid Interpretation Code 1.005-1.030 [facility] Comment on above: Performed By: #### 4 525600527 ####[facility] [address] [place] [address]88757 Urobilinogen (U) [Mass/Vol] Negative Normal Negative [facility] Comment on above: Performed By: #### 4 835612069 ####[facility] [address] [place] [address] Type of Urine collection method Cysto Normal [facility] Comment on above: Performed By: #### 4 [id number] ####[facility] [address] [place] [address]757 URINALYSISOrdered By: SYSTEM SYSTEM on 12-21-2023 Bilirubin Ql (U) Negative Normal Negativemg/dL [facility] UA Auto SS Clarity (U) Clear (12/21/23 1:21 PM) Normal Clear [facility] UA Auto SS Color (U) Yellow 1 (12/21/23 1:21 PM) Normal Yellow [facility] UA Auto SS Comment on above: Interpretive Data: M icroscopic readings are only performed on those samples that meet specific criteria set forth by [facility]. Glucose Ql (U) Negative Normal Negativemg/dL FT UA Auto SS Hemoglobin Auto test strip (U) [Mass/Vol] Trace mg/dL Invalid Interpretation Code Negativemg/dL FT UA Auto SS Ketones Auto test strip Ql (U) Negative Normal Negativemg/dL FT UA Auto SS Leukocyte esterase Auto test strip Ql (U) Negative Normal NegativeLeu/uL FT UA Auto SS Nitrite Auto test strip Ql (U) Negative Normal Negativemg/dL [facility] UA Auto SS pH (U) 6.5 *NA* (12/21/23 1:21 PM) Invalid Interpretation Code 5.0 - 9.0 FT UA Auto SS Protein Ql (U) Negative Normal Negativemg/dL [facility] UA Auto SS Specific gravity (U) [Rel density] 1.009 *NA* (12/21/23 1:21 PM) Invalid Interpretation Code 1.005 - 1.030 [facility] UA Auto SS Urobilinogen (U) [Mass/Vol] Negative Normal Negativemg/dL [facility] UA Auto SS URINALYSISOrdered By: Karina Vela on 12-21-2023 UA Spec Desc Cysto (12/21/23 1:21 PM) Normal [facility] UA Auto SS Uric Acidon 12-21-2023 Urate (U) [Mass/Vol] 3.8 mg/dL Normal 2.2-7.4 [facility] Comment on above: Performed By: #### 2 120710, 308926909, 74093091, 7994515, 9161148, 217761469, 5929686, 4195576, 55439559, 1054903, 1063769, 1004920, 3737797305, 367047877, 2443664815, 6111625 ####[facility] [address] [place] [address] Vit B12on 12-21-2023 Cobalamin (Vitamin B12) [Mass/Vol] pg/mL Normal 50-1500 [facility] Comment on above: Performed By: #### 2 857893, 827834496, 47539760, 8740194, 6821931, 989748503, 4531099, 8944867, 95885410, 3680395, 0514927, 0133427, 1759205562, 198160302, 7165929277, 4363023 ####[facility] [address] [place] [address] Vitamin D 25 Hydroxyon 12-20 25-hydroxyvitamin D3 [Mass/Vol] 17.7 ng/mL Low 30.0-100.0 [facility] Comment on above: Performed By: #### 2 900244, 396921703, 27623468, 2303969, 5770200, 914547819, 2273877, 1447704, 10598958, 4880783, 7795678, 6448013, 6970141271, 985572713, 2433297258, 7972836 ####[facility] [address] [place] [address] eGFRon 12-21-2023 eGFR 120 mL/min/1.73 m2 Normal >=59 [facility] Comment on above: Order Comment: Order added by Discern Expert. Performed By: #### 2 292348, 8476378, 1107822, 9623593, 8060930, 35150813, 8788343, 4481569 ####[facility] [address] [place] [address] Physician Referralon 024 Physician Referral [id number] IFF Normal [facility] Discharge Instructionson Discharge Instructions [id number] 0TIFF Normal [facility] Inpatient Clinical Summaryon 12-14-2023 Inpatient Clinical Summary [place] [id number] Clinical Summary Person Information: Name: WILL RALPH Age: 38 Years : 1985 Sex: Male PCP: Loreta Padilla Marital Status: Single Race: White Ethnicity: Non- or Language: Vietnamese Visit Id: Visit Reason: STAT TRANSPORT, ALLERGIC REACTION Speciality: Acuity: Enc Type: Observation Med Service: Medical Arrival: 12/11/2023 09:05:01 Discharge: 12/13/2023 12:15:00 Dispo Type: Home (Routine DC) Address: [address] [place] [address] [place] [id number] Provider Notes: Diagnosis: 1:Intractable pain; 2:Cirrhosis; 3:Tobacco [...] Refills: 0. Misc Prescription (Misc DME Prescription) [employer] SAP Dressing 4 x 4 dressing. Misc [...] pain. Refills: 0. potassium chloride (Potassium Chloride (Pxw-Rwbj-Yuz M20) 20 mEq oral tablet, extended release) 1 Tablets By Mouth 2 times a day. Refills: 3. spironolactone (spironolactone 50 mg Tab) 1 Tablets By Mouth every day. sulfamethoxazole-trimet hoprim (Bactrim) By Mouth. taskes 3 times a week. Care Team Members: Attending Physician: Desi Mena MD Consulting Physician: Referring Physician: Follow up: With: Address: When: Loreta Cummings [address] [employer], [address], [email or web address] [address] [address] Business (1) Type Location Start Finish State Open [facility] 01/27/2024 9:40 AM 01/27/2024 10:00 AM Confirmed BADH Follow Up [facility] 05/12/2024 3:15 PM 05/12/2024 3:30 PM Confirmed Patient Education Information: Drug Allergy, Sucu-eg-Lopj; Chronic Back Pain; Cirrhosis Normal [facility] Inpatient Patient Summaryon 12-14-2023 Inpatient Patient Summary [address] [address] Patient Discharge Instructions PERSON INFORMATION [...] up: With: Address: When: Loreta Cummings [address] [employer], [address], Med [address] [address] Business (1) In the event that this physician does not participate in your insurance network, please consult with your insurance company to find a nearby participating provider. Type Location Start Finish State FM Open [facility] Ian 01/27/2024 9:40 AM 01/27/2024 10:00 AM Confirmed BADH Follow Up [facility] 05/12/2024 3:15 PM 05/12/2024 3:30 [...] Dose: __ Misc Prescription (Misc DME Prescription) [employer] SAP Dressing 4 x 4 dressing. Last [...] __Next Dose: __ potassium chloride (Potassium Chloride (Sdd-Smgq-Kww M20) 20 mEq oral tablet, extended release) [...] By Mout (more content not included)... Normal [facility] Population [facility] 12-14-19 Population Health Case Information [...] Oral, q6hr, PRN, Not taking Potassium Chloride (Kkb-Joux-Wba M20) 20 mEq oral tablet, extended release, [...] Outbound Duration (more content not included)... Normal [facility] BMPon 12-13-2023 Anion gap [Moles/Vol] 8 mmol/L Normal -16 [facility] Comment on above: Performed By: #### 2 752208, [id number] ####[facility] [address] [place] [address] Calcium [Mass/Vol] 8.0 mg/dL Low 8.9-11.1 [facility] Comment on above: Performed By: #### 2 410215, 92007520 ####[facility] [address] [place] [address] Chloride [Moles/Vol] 105 mmol/L Normal 101-111 [facility] Comment on above: Performed By: #### 2 139088, [id number] ####[facility] [address] [place] [address] CO2 [Moles/Vol] 26 mmol/L Normal 21-31 [facility] Comment on above: Performed By: #### 2 475455, [id number] ####[facility] [address] [place] [address] Creatinine [Mass/Vol] 0.5 mg/dL Normal 0.5-1.3 [facility] Comment on above: Performed By: #### 2 276645, 97069101 ####[facility] [address] [place] [address] Glucose [Mass/Vol] 97 mg/dL Normal 55-199 [facility] Comment on above: Performed By: #### 2 907420, 66094740 ####[facility] [address] [place] [address] Potassium [Moles/Vol] 4.5 mmol/L Normal 3.5-5.3 [facility] Comment on above: Performed By: #### 2 042583, 66155705 ####[facility] [address] [place] [address] Sodium [Moles/Vol] 134 mmol/L Low 135-145 [facility] Comment on above: Performed By: #### 2 801043, [id number] ####[facility] [address] [place] [address] Urea nitrogen [Mass/Vol] 9 mg/dL Normal 5-21 [facility] Comment on above: Performed By: #### 2 464587, 52231742 ####[facility] [address] [place] [address] Urea nitrogen/Creatinine [Mass ratio] 18 No Units Normal 10-20 [facility] Comment on above: Performed By: #### 2 468851, 37359513 ####[facility] [address] [place] [address] CHEMISTRYOrdered By: SYSTEM SYSTEM on 12-13-2023 Anion [...] 5 mg Tab) potassium chloride (Potassium Chloride (Dmo-Ijhk-Jpe M20) 20 mEq oral tablet, extended release) [...] EDT With: John ALBERTS, Loreta Zuniga Where: [facility] Primary [facility] Normal [address] [place] [address]- \.br\ New Follow Up Appointments after Discharge\.br \ Follow Up with Loreta Cummings When: In 0 days\.br\ Where:\.br\ [address]\.br\ [place] [address]-\.br\ Business (1)\.br\ Medications\.br \ What How Much [...] Misc Prescription (Misc DME Prescription) See instructions [employer]ruff SAP Dressing 4 x 4 dressing \.br\ [...] @ 12pm\.br\ Unchanged potassium chloride (Potassium Chloride (Jfn-Jkxs-Rbv M20) 20 mEq oral tablet, extended release) [...] you are allergic to.\.br\ ? \.br\ Take fjzz-fhj-dmdqtr r and prescription medicines only as told by your doctor.\.br\ ? \.br\ If you were given allergy medicines, do not drive until your health care provider tells you it is safe.\.br\ ? \.br\ If you have hives or a rash:\.br\ ? \.br\ Use glmp-mxf-apflfu r medicines as told by your doctor.\.br\ ? \.br\ Put cold, wet cloths on your skin.\.br\ ? \.br\ Take baths or showers in cool water. Avoid hot water.\.br\ ? \.br\ [facility] Monitor Recordon 12-13-2023 Monitor Record [id number]#[id number] TIFF Normal [facility] Patient Education - Texton 0 12-13-2023 Patient [...] provider before taking any new medicines, including rgrc-kmr-jmeolfy medicines such as NSAIDs. ? Rest as needed. ? Eat a well-balanced diet. ? Limit your salt or water intake, if your health care provider asks you to do this. ? Do not drink alcohol. This is especially important if you routinely take acetaminophen. ? Keep all f (more content not included)... Normal [facility] eGFRon 12-13-2023 eGFR 133 mL/min/1.73 m2 Normal >=59 [facility] Comment on above: Order Comment: Order added by Discern Expert. Performed By: #### 2 858388, [id number] ####[facility] [address] [place] [address] CHEMISTRYOrdered By: SYSTEM SYSTEM on 12-11-2023 Anion [...] - 11.0 E9/L Remisol Heme URINALYSISOrdered By: [employer] SYSTEM on 12-11-2023 Color (U) Yellow 1 (12/11/23 9:36 AM) Normal Yellow [facility] UA Auto SS Comment on above: Interpretive Data: M icroscopic readings are only performed on those samples that meet specific criteria set forth by [facility]. 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 Interface Message Text Hematology AND Oncology [...] B27 positive) 2003 Followed with Rheum at [facility] Open fracture of other and unspecified part [...] 120 min Stress: Stress Concern Present (02/27/2023) [place] [employer] - Occupational Stress Questionnaire Feeling of Stress : Very much Social Connections: Socially Isolated (02/27/2023) Social Connection and Isolation Panel [NHANES] Frequency of Communication with Friends and Family: More than three times a week Frequency of Social Gatherings with Friends and Family: Patient refused Attends Faith Services: Never Active Member of Clubs or [...] tab (more content not included)... Normal [facility] CHEMISTRYOrdered By: Huber Jha on 07-24-2023 Albumin DL <= 20 mg/L (U) [Mass/Vol] microgram/mL Normal 0.0 - 19.0 mcg/mL [facility] Albumin Elph (U) [Mass fraction] mg/dL Invalid Interpretation Code [facility] Comment on above: Interpretive Data: T he reference range and other method performance specifications have not been established for this test; results should be integrated into the clinical context for interpretation. Creatinine (U) [Mass/Vol] 22.5 mg/dL Invalid Interpretation Code [facility] Comment on above: Interpretive Data: T he reference range and other method performance specifications have not been established for this test; results should be integrated into the clinical context for interpretation. U Prot/Creat Ratio [facility] Invalid Interpretation Code 0.00 - 200.00 [facility] metabolic 2000 panelon 04-21-2023 Anion gap [Moles/Vol] 12 mmol/L 10 - 20 [facility] Calcium [Mass/Vol] 8.6 mg/dL 8.4 - 10. 4 mg/dL [facility] Chloride [Moles/Vol] 104 mmol/L 97 - 111 mmol/L [facility] CO2 [Moles/Vol] 26 mmol/L 21 - 30 mmol/L [facility] Creatinine [Mass/Vol] 0.52 mg/dL Low 0.80 - 1.30 mg/dL [facility] GFR/1.73 sq M.predicted MDRD (S/P/Bld) [Vol rate/Area] 132 mL/min/{1.73_m2} - PINF [facility] Comment on above: 2020 CKD EPI [...] Inclusion of Race in Diagnosing Kidney Disease. [place] Journal of Kidney Diseases 202;79(2):268-88.e1. 2. N Engl J Med 2020 Vol. 385 Issue 19 Pages 0513-3024 Glucose [Mass/Vol] 80 mg/dL 68 - 110 [...] [Mass/Vol] mg/dL Low 36 - 220 mg/dL [facility] Interpretation and review of laboratory results [facility] HEPATIC FUNCTION PANELon Albumin [Mass/Vol] 3.2 g/dL Low 3.4 - 5.1 g/dL [facility] ALP [Catalytic activity/Vol] 284 U/L [facility] ALT [Catalytic activity/Vol] 38 U/L [facility] AST [Catalytic activity/Vol] 70 U/L High [facility] Bilirubin [Mass/Vol] 7.5 mg/dL High 0.1 - 1.5 mg/dL [facility] Bilirubin.direct [Mass/Vol] 1.89 mg/dL High 0.10 - 0.30 mg/dL [facility] Protein [Mass/Vol] 7.6 g/dL 6.2 - 8.3 g/dL [facility] LDHon 04-21-2023 LDH [Catalytic activity/Vol] 257 U/L High [facility] MANUAL DIFF AND MORPHon 04-07 Anisocytosis Ql (Bld) Slight [facility] Cells Counted Total (Bld) [#] [facility] Dacrocytes LM Ql (Bld) Few [facility] Ovalocytes LM Ql (Bld) Few [facility] Schistocytes LM Ql (Bld) Few [facility] Target cells LM Ql (Bld) Few [facility] No Panel InformationOrdered By: Yany Carrera on 04-21-2023 [facility] No Panel Informationon 04-21 Interpretation and review of laboratory results Abnormal [facility] RETICULOCYTE COUNTon 023 Immature reticulocytes/Total reticulocytes (Bld) 0.46 % 0.30 - 0.50 [facility] Interpretation and review of laboratory results Abnormal [facility] Reticulocytes (Bld) [#/Vol] 0.09 10*3/uL High [facility] Reticulocytes/100 RBC (Bld) 2.6 % High 0.5 - 1.5 % [facility] CHEMISTRYOrdered By: SYSTEM SYSTEM on 03-22-2023 Albumin [...] 10.1 E9/L Normal 4.0 - 11.0 E9/L [facility] [place] *SPECIMEN FOR SURGICAL PATHO LOGYOrdered By: Daniella Conde on 01-27-2023 Case Report Surgical Pathology Report Case: [id number] Authorizing Provider: Erica Rock MD Collected: 01/20/2023 4773 Ordering Location: [facility] Radiology Received: 01/20/2023 1761 Pathologist: Daniella Conde MD Specimen: Liver biopsy, Transvenous biopsy nontargeted [facility] Work Phone: Clinical Information [facility] Work Phone: Final Diagnosis [id number] bGF uZzEwMzNcZnRuYmpcdWMxIH tccnRmMVxlcGljMTAzMDVcd 3kag2jgoODdXCWvc4dhd6Wy dHBncGFyXGpleHBhbmRcbm9 4cDM8wE15XQ5hNBXbMgJ3RE RftqA3Myu3MAVpAQExiPQaC 449b8pcs3elwdIcuSU6HLBi OVLrX6YwYD2vVLRkgAEjF81 egKXbHWP8SCGlUXAvnLVcUN HcKNZ6XMMwbYMkJ5hbXBWdT G9fzteyUTiwBEdaRGEdfXR4 AYUilTNzP0RbAPItLYldJCR runi0EmYqFl3hbXEweOwhWZ epOOWuEL5ew9zqF6WfqLPvA HBsYWluXGJcZnMyMCBBLiAi FGs6BCXqLDEsVD3gpnWwgBh muyMfqO3qv1cxTOYmjdmpZA ttQTLfh4dhV0LqzUKdTZZsC QUVoFErgE9vfUDmKNYrGXAT w92hXH65BQFsMKCfmVLpaAG eZBO1VJeaISLzr7DixNZfTH GmbshfWJQlVny4nSGMz92aZ T79QaznYAq2tBXiQWIxJIPf xXsxgO6stAXgEiV7eCNsT7b rmugci0zwTIcgRJ2ywVJqmj wkGF53BWbwj9VotE7srJFhv Fz1JCowNTCdiRAiDOL8CF6t BDSqs6CsG9BoLRGSj1itghI yIHdpdGggdGhlIHBhdGllbn OytwCwjDB0m6P0PGQ3nULxR qkbTDhlA0NhWVFjOIVdzWJb tLuhrEBki4a9eWAdrQUrkF7 zbITfJ2otqmlxa0yrUdMyB9 YhCHLzo7uwUTHrrjBsuFZne nzmHROkdy89vT1wpCPwoYCr TRAyc2XdqWjvPNouajOjHEQ imwQxR0z6hRVzaPCmAVdrxk SbJHAgZfUfasrwXWU1r2smn GYxXHNzdGVjZjIyMDAwXGFu g7wzBQRhvQBfKqVaXlSfDcQ dYgdfxAQgIDBkVmBmf1tmn2 65dHPxn4xzTRQpCvJ7dFKlW MGhmSRbV329TGPdEOqtl5dh n3HzHXBbwYIpk0W1RXXIpaf obFd5fFzkE72mk0A1SlurC2 ioDXMcPKRrB1BkNJ8nLUViZ qp5IGQ9IBU8RERwVQk2TNjo YIYhZVKpGad4ZVd3CZftcgT fUWvcneNnaySvKab5MLNhS1 04GTN3rFmdp7ihLYG6HAFoL FJaLhAmXh7raCHiK362TGBg USUPJZCisZt7PGPttfFpibQ hrVHAt779V304n4hvKWRthq VzaMmFoiekf2byC687RTAnm GVydzEyMjQwXHBhcGVyaDE1 LXCtBV7ywiwfFPmwIYhtVJW qibP1TULhvYVkC5MxUCZoHI 4zgzmkOPM3HXoaRWKxHVP7A kHfPNXog4Mlfuu0FtTagu7f so47WAA4y1OurHnzQJJ1FNK 7EcMuUx1itJZjOBVdRH2cGu VcqVFkROJhrw30qNmuPEsdn eMqgH7kFuSxYXQyxVWdAMGn HO8itLXdHEZjeH8knrpcPTW nYnJkcmhlYWRccGdicmRyZm 7ezUjaRBQ7PZleF1iqwX1qQ sM0NWykM8qvcJ0rFUa7NRcn yAX1SXNteI3fRV7gavgyf7l zDLfnKIvrPKVxngL8xfD5CZ XmrPVyS9TchN3nTJGrXD7om viyf6lqNNL9XOjaJSQkQZB6 DuPfWERbx0Qqhxr7GmNtn0V xvBUaYQdeY69fy829JXTshp OgQ7qnxONxvlfysYCpyizwN ZkzmsA0WGOkZKLzRYakVDLu XGZzMjJcbGFuZzEwMzNcaGl jaFxmMVxkYmNoXGYxXGxvY2 hcZjFcZnMyMlxwYXJccGxha I4pJzXdOhTiKHrfKH8cEHFj R8byjUAwNRZoPDNaN7unSrU fbP1qrSezACpdmfJjHWLvIM L0mo9ynYJhfUz6NLKoH74nP EKBvANvPvrbH2EaeFSjVZH4 pRMvNM3EJS9nEQF4AxChAdQ wMjMuXHBhclxwYXJccGxhaW 3nEsWaHkErELiaMA3wUOGzX 6fkbICfUGZrQXJlJ9iaHfQv yE5dwTclGByxShVxGqIePYl gIEwpP0CogEldxLF7mPC1BR wqqHHus88uNMbemHRln42uv PJ2QJLhoOlnPQVgHCgqy9R7 aWMgZXZhbHVhdGlvbiBvZiB 1sEDcMTNuolJti5OgI2bqBW 9idgzuLF9uRHlugbHdbbHfM GVyZWQgdGhlIGZpbmFsIGRp HXxio6YhkoyfwcokJYohlBG pblxmMVxmczIyXGxhbmcxMD SvLIruJ2ptEnRkCYYheGegI Nqns9CqYFKdIJRvHiHfqCGw RAOqdz36 [facility] Work Phone: Gross Description p9dmgRGxFXMbkQHbBKHx Nlx zkvAhKKLfcJKcX6JrdmrlDA xdOF5uIU5msKtigYRucBLhB DWkFvZbm1pad602xWTzc1fn DPAKkckxgTr1dMdjF20tu6U 3ApadA44jwUGmPFR2VQOsNA LagTAeQYYjUAH0DERenERkW 9ouJNScIT4lboucSFmpAAvd LLApcQJ6BUOxzFJfS2GmACV bGPzxRVHxohv2ZpZkNo5hdV VyeTcyMFxwYXJkXHBsYWluX ALsBvUbGG3yEKNwcHJpl5g5 aM4tXDWuVXKmXubhnbFvPAX zt7TnyZCdWPNphwXSgLAfx0 AhH4zsNP7qsGVgkwKiWZo5P FEsPbTff5snbZ1eGNVcrJ7s pKXnB37rxUIwkdTxUDXuSYN pxYAzRMuyxYujjWH7oUAisF vcDU7akWKfCG3iYKmeMOavc hNcv3HfHT52jTPexaizLR8h THZ8owpuF4YaXN83lXTtcr7 sBTBaq9WrKWWcLSQnxKEmww BjdK8nn8nkAmMThYLxb1ZfX 9etJP8pW89sy1gsfSAdt4Mp JzX9OO3scqVbNCfgBRNeqtJ kHmekrDRgJJQzpEYyq8TsbU 4gUMHkWLXouEQevfOoPV99A VBbRTjfXXfcbzr6iDBwxjJj dGhlIDAuMSBjbSBpbiBkaWF fAEEcbc4xWVltJGNeZLEyvW FfOEfxPKL3Qt0evEOyWOXpf hW7t2KjXJdsCT1sJZSfJJSa ZGY5SP0jSoRgAUXkertyUXQ ri8VkbTBghD== [facility] Work Phone: [employer] j5ipsHWhMOBxdIVlZVVd NVx jczRzCOTwqBScL7CmuctbTI crEP3cKP6yjFywoUAkkEChE PCtNeSuv9tdh921xXDbu4tt KOKZuuwltCt8rAjhM01wl6N 0TuyaR67xjBHeMZW8TUInMQ UqnIUzGNWyVJF8SRCfdBEuN 5inHUHpSV7vtdbrGTcoQScn ZVJflGN5MWTonLJmE8SvVLJ eOAgzDBUjeif2LwKmSl3gwA VyeTcyMFxwYXJkXHBsYWluX EUlDfAhFQ6sYBopwFOqlSAq wHU0zL5fLN9cNOBqgiunHNP nAsb8nUKVrMFdsty3pAJkFt xjPYPmvQIyNFPgyWJojm2gS UexXPUnTQetA8ybkYeeyEOy N1lvxcgst6xkCRTeccisOUT SIy8YMeScHnWtAoErGQTycr DzJn2gZTxviQIhH8k6q3WdP WPcfZHiM6onMqEjHWNecDRe PFJfUTKzpdclQXYhQZuyF9R iDVHiWGAdcj3gZGWyppqpIH JkXHBhcn0= [facility] Work Phone: [facility] Work Phone: [...] wedged hepatic: 32. Moderate sedation intraservice time 8538-5274 FLUOROSCOPIST: ERICA ROCK FLUORO TIME: 41.6 Minutes [...] microaccess catheter under fluoroscopic guidance. A 10 Albanian curved tip renal vein sheath was then advanced over the wire into the right atrium. The obturator was removed and a 5 Albanian MPB catheter was used to select the [...] vein was again selected with a 5 Albanian MPB catheter which was then exchanged over an Amplatz wire for the 10 Albanian venous sheath. This was repeated several times for attempted transvenous liver biopsy through the right hepatic vein; however, the 10 Albanian sheath withdrew during attempted advancement of the biopsy catheter. The 10 Albanian venous sheath was then withdrawn into the intrahepatic IVC. The middle hepatic vein was selected with the same 5 Albanian catheter which was then exchanged over an Amplatz wire for the 10 Albanian venous sheath. The 10 Albanian transvenous biopsy catheter was then advanced into the middle hepatic venous sheath and deployed twice for liver biopsy. The transvenous biopsy catheter and a 10 Albanian venous sheath were removed. Satisfactory hemostasis was [...] wedged hepatic: 32. Moderate sedation intraservice time 4189-8874 FLUOROSCOPIST: ERICA ROCK FLUORO TIME: 41.6 Minutes [...] microaccess catheter under fluoroscopic guidance. A 10 Albanian curved tip renal vein sheath was then advanced over the wire into the right atrium. The obturator was removed and a 5 Albanian MPB catheter was used to select the [...] vein was again selected with a 5 Albanian MPB catheter which was then exchanged over an Amplatz wire for the 10 Albanian venous sheath. This was repeated several times for attempted transvenous liver biopsy through the right hepatic vein; however, the 10 Albanian sheath withdrew during attempted advancement of the biopsy catheter. The 10 Albanian venous sheath was then withdrawn into the intrahepatic IVC. The middle hepatic vein was selected with the same 5 Albanian catheter which was then exchanged over an Amplatz wire for the 10 Albanian venous sheath. The 10 Albanian transvenous biopsy catheter was then advanced into the middle hepatic venous sheath and deployed twice for liver biopsy. The transvenous biopsy catheter and a 10 Albanian venous sheath were removed. Satisfactory hemostasis was [...] pressures and increased portosystemic gradient. MACRO: None [facility] No Panel Informationon 01-20 Radiology Study observation (narrative) [facility] PROTHROMBIN TIME AND INRon 0 01-20-2023 INR Coag (PPP) [Relative time] 2.49 {INR} High 0.90 - 1.10 [facility] Interpretation and review of laboratory results Abnormal [facility] PT Coag (PPP) [Time] 27.9 s High [facility] Basic metabolic 2000 panelon 01-12-2023 Anion gap [...] Inclusion of Race in Diagnosing Kidney Disease. [place] Journal of Kidney Diseases 202;79(2):268-88.e1. 2. N Engl J Med 2020 Vol. 385 Issue 19 Pages 1874-3191 Glucose [Mass/Vol] 82 mg/dL 68 - 110 mg/dL [facility] Potassium [Moles/Vol] 3.5 mmol/L 3.3 - 5.3 mmol/L [facility] Sodium [Moles/Vol] 139 mmol/L 135 - 148 mmol/L [facility] Urea nitrogen [Mass/Vol] 4 mg/dL Low 8 - 22 mg/dL [facility] C-PEPTIDE, SERUMon C peptide [Mass/Vol] 3.52 ng/mL 0.81 - 3.85 ng/mL [facility] Interpretation and review of laboratory results Normal [facility] CBC panel Auto (Bld)on 01-12 Erythrocyte distribution width (RBC) [Ratio] 15.7 % High 11.5 - 14.5 % [facility] Hematocrit (Bld) [Volume fraction] 35.4 % Low 41.0 - 53.0 % [facility] Hemoglobin (Bld) [Mass/Vol] 12.1 g/dL Low 13.9 - 16.3 g/dL [facility] Interpretation and review of laboratory [...] 6.6 10*3/uL 4.5 - 11.5 K/uL [facility] Diabetes tracking panelOrder ed By: Moi Christianson on 01-12-2023 Average glucose Estimated from glycated hemoglobin (Bld) [Mass/Vol] 82 mg/dL [facility] HbA1c (Bld) [Mass fraction] 4.5 % 4.0 - 5.6 % [facility] HEPATIC FUNCTION PANELon Albumin [Mass/Vol] 3.2 g/dL Low 3.4 - 5.1 g/dL [facility] ALP [Catalytic activity/Vol] 336 U/L High [facility] ALT [Catalytic activity/Vol] 43 U/L High [facility] AST [Catalytic activity/Vol] 73 U/L High [facility] Bilirubin [Mass/Vol] 8.2 mg/dL High 0.1 - 1.5 mg/dL [facility] Bilirubin.direct [Mass/Vol] 2.28 mg/dL High 0.10 - 0.30 mg/dL [facility] Protein [Mass/Vol] 7.9 g/dL 6.2 - 8.3 g/dL [facility] INSULINon 01-12-2023 Insulin Free Qn 38.9 High [facility] Interpretation and review of laboratory results Abnormal [facility] No Panel Informationon 01-12 Interpretation and review of laboratory results Abnormal [facility] PROTHROMBIN TIME AND INRon 0 01-12-2023 INR Coag (PPP) [Relative time] 1.87 {INR} High 0.90 - 1.10 [facility] Interpretation and review of laboratory results Abnormal [facility] PT Coag (PPP) [Time] 21.0 s High [facility] ALPHA FETOPROTEIN TUMOR ANDRIA Jeri 11-13-2022 AFP 4.4 ng/mL NINF - 8.4 ng/mL [facility] Interpretation and review of laboratory results Normal [facility] Basic metabolic 2000 panelon 11-13-2022 Anion [...] MDRD (S/P/Bld) [Vol rate/Area] 134 mL/min/{1.73_m2} [facility] Comment on above: 2020 CKD EPI [...] Inclusion of Race in Diagnosing Kidney Disease. [place] Journal of Kidney Diseases 202;79(2):268-88.e1. 2. N Engl J Med 2020 Vol. 385 Issue 19 Pages 9326-8772 Glucose [Mass/Vol] 70 mg/dL 68 - 110 [...] (Bld) 63.2 % 31.0 - 76.0 % [facility] Platelet mean volume (Bld) [Entitic vol] 8.2 fL 7.5 - 11.2 fL [facility] Platelets (Bld) [#/Vol] 82 10*3/uL Low 150 - 400 K/uL [facility] RBC (Bld) [#/Vol] 2.69 10*6/uL Low [facility] WBC (Bld) [#/Vol] 5.7 10*3/uL 4.5 - 11.5 K/uL [facility] DIRECT ANTIGLOBULIN TESTon 0 11-13-2022 Direct antiglobulin test.poly specific reagent Ql (RBC) Negative [facility] HAPTOGLOBINon 11-13-2022 Haptoglobin [Mass/Vol] mg/dL Low 36 - 220 mg/dL [facility] Interpretation and review of laboratory results Abnormal [facility] HEPATIC FUNCTION PANELon Albumin [Mass/Vol] 2.9 g/dL Low 3.4 - 5.1 g/dL [facility] ALP [Catalytic activity/Vol] 386 U/L High [facility] ALT [Catalytic activity/Vol] 36 U/L [facility] AST [Catalytic activity/Vol] 68 U/L High [facility] Bilirubin [Mass/Vol] 6.9 mg/dL High 0.1 - 1.5 mg/dL [facility] Bilirubin.direct [Mass/Vol] 1.88 mg/dL High 0.10 - 0.30 mg/dL [facility] Protein [Mass/Vol] 7.0 g/dL 6.2 - 8.3 g/dL [facility] LDHon 11-13-2022 LDH [Catalytic activity/Vol] 255 U/L High [facility] No Panel Informationon 11-13 Interpretation and review of laboratory results Abnormal [facility] Interpretation and review of laboratory results Abnormal [facility] PROTHROMBIN TIME AND INRon 0 11-13-2022 INR Coag (PPP) [Relative time] 1.71 {INR} High 0.90 - 1.10 [facility] Interpretation and review of laboratory results Abnormal [facility] PT Coag (PPP) [Time] 19.2 s High [facility] RETICULOCYTE COUNTon 023 Immature reticulocytes/Total reticulocytes [...] specimen(s) and have rendered the final diagnosis(es). [facility] Work Phone: [facility] [facility] Work Phone: Basic metabolic 2000 panelon 08-25-2022 [...] (S/P/Bld) [Vol rate/Area] 131 mL/min/{1.73_m2} - PINF [facility] Comment on above: 2020 CKD EPI [...] Inclusion of Race in Diagnosing Kidney Disease. [place] Journal of Kidney Diseases 2021;79(2):268-88.e1. 2. N Engl J Med 2020 Vol. 385 Issue 19 Pages 2994-9385 Glucose [Mass/Vol] 55 mg/dL Low 68 - 110 mg/dL [facility] Potassium [Moles/Vol] 3.3 mmol/L 3.3 - [...] 3.0 g/dL Low 3.4 - 5.1 g/dL [facility] ALP [Catalytic activity/Vol] 389 U/L High [...] [Mass/Vol] 7.2 g/dL 6.2 - 8.3 g/dL [facility] Transferrin [Mass/Vol] 177 mg/dL Low 210 - 375 mg/dL [facility] Laboratory - Serology - non- microon 08-25-2022 Immune complex.IgG [Mass/Vol] 1995 mg/dL High 768 - 1632 mg/dL [facility] No Panel Informationon 08-25 Interpretation and review of laboratory results Abnormal [facility] Interpretation and review of laboratory results Abnormal [facility] Interpretation and review of laboratory results Abnormal [facility] XR Knee - right Viewson 12-0 EXAMINATION: [...] the calcaneus anteriorly. Right knee MACRO: None [facility] Radiology Study observation (narrative) [facility] XR Knee - right ViewsOrdered By: Colby Mcintosh on 08-15-2022 [facility] Work Phone: Basic metabolic 2000 panelon [...] Inclusion of Race in Diagnosing Kidney Disease. [place] Journal of Kidney Diseases 202;79(2):268-88.e1. 2. N Engl J Med 1 Vol. 385 Issue 19 Pages 1519-7070 Glucose [Mass/Vol] 89 mg/dL 68 - 110 mg/dL [facility] Potassium [Moles/Vol] 3.0 mmol/L Low 3.3 - 5.3 mmol/L [facility] Sodium [Moles/Vol] 132 mmol/L Low 135 - 148 mmol/L [facility] Urea nitrogen [Mass/Vol] 5 mg/dL Low 8 - 22 mg/dL [facility] Laboratory - Chemistry and C hemistry - challengeon 08-14-2022 Urate [Mass/Vol] 1.9 mg/dL Low 2.0 - 7.3 mg/dL [facility] Albumin [Mass/Vol] 2.9 g/dL Low 3.4 - 5.1 g/dL [facility] ALP [Catalytic activity/Vol] 245 U/L High [...] Interpretation and review of laboratory results Abnormal [facility] No Panel Informationon 08-14 Interpretation and review of laboratory results Abnormal [facility] Interpretation and review of laboratory results Abnormal [facility] Interpretation and review of laboratory results Normal [facility] Interpretation and review of laboratory results Abnormal [facility] A negative leukocyte esterase AND negative [...] (positive predictive value for UTI around 50%) [facility] US.doppler Lower extremity v ein [...] deep venous thrombosis identified. MACRO: None RADIOLOGY Enriqeu Basurto MD - 08/14/2022 EXAMINATION: US LEG [...] extremity deep venous thrombosis identified. MACRO: None [facility] Radiology Study observation (narrative) [facility] US.doppler Lower extremity v ein - rightOrdered By: Enrique Basurto on 08-14-2022 [facility] Work Phone: Basic metabolic 2000 panelon 05-06-2022 Anion gap [Moles/Vol] 11 mmol/L 10 - 20 [facility] Calcium [Mass/Vol] 8.9 mg/dL 8.4 - 10. 4 mg/dL [facility] Chloride [Moles/Vol] 105 mmol/L 97 - 111 mmol/L [facility] CO2 [Moles/Vol] 25 mmol/L 21 - 30 mmol/L [facility] Creatinine [Mass/Vol] 0.58 mg/dL Low 0.8 - 1.3 mg/dL [facility] Comment on above: Grossly icteric; may falsely decrease creatinine GFR/1.73 sq M.predicted MDRD (S/P/Bld) [Vol rate/Area] 129 mL/min/{1.73_m2} - PINF [facility] Comment on above: 2020 CKD EPI [...] Inclusion of Race in Diagnosing Kidney Disease. [place] Journal of Kidney Diseases 202;79(2):268-88.e1. 2. N Engl J Med 2020 Vol. 385 Issue 19 Pages 7980-2077 Glucose [Mass/Vol] 79 mg/dL 68 - 110 mg/dL [facility] Interpretation and review of laboratory results Abnormal [facility] Potassium [Moles/Vol] 3.6 mmol/L 3.3 - 5.3 mmol/L [facility] Sodium [Moles/Vol] 137 mmol/L 135 - 148 mmol/L [facility] Urea nitrogen [Mass/Vol] 3 mg/dL Low 8 - 22 mg/dL [facility] CBC WITH DIFFERENTIALOrdered By: Isak Mitchell [...] 11.5 g/dL Low 13.9 - 16.3 g/dL [facility] Interpretation and review of laboratory results [...] 4.2 10*3/uL Low 4.5 - 11.5 K/uL [facility] HAPTOGLOBINon 05-06-2022 Haptoglobin [Mass/Vol] mg/dL Low 36 - 220 mg/dL [facility] Interpretation and review of laboratory results Abnormal [facility] HEPATIC FUNCTION PANELon Albumin [Mass/Vol] 3.0 g/dL Low 3.4 - 5.1 g/dL [facility] ALP [Catalytic activity/Vol] 373 U/L High [facility] ALT [Catalytic activity/Vol] 47 U/L High [facility] AST [Catalytic activity/Vol] 87 U/L High [facility] Bilirubin [Mass/Vol] 8.3 mg/dL High 0.1 - 1.5 mg/dL [facility] Bilirubin.direct [Mass/Vol] 1.50 mg/dL High 0.1 - 0.3 mg/dL [facility] Protein [Mass/Vol] 6.7 g/dL 6.2 - 8.3 g/dL [facility] LDHon 05-06-2022 LDH [Catalytic activity/Vol] 270 U/L High [facility] No Panel Informationon 05-06 Interpretation and review of laboratory results Abnormal [facility] URIC ACIDon 05-06-2022 Interpretation and review of laboratory results Normal [facility] Urate [Mass/Vol] 3.2 mg/dL 2 - 7.3 mg/dL [facility] Basic metabolic 2000 panelon 03-13-2022 Anion gap [Moles/Vol] 11 mmol/L [facility] Calcium [Mass/Vol] 8.2 mg/dL Low 8.4 - 10. 4 mg/dL [facility] Chloride [Moles/Vol] 103 mmol/L 97 - 111 mmol/L [facility] CO2 [Moles/Vol] 25 mmol/L 21 - 30 mmol/L [facility] Creatinine [Mass/Vol] 0.51 mg/dL Low 0.80 - 1.30 mg/dL [facility] Comment on above: Grossly icteric; may falsely decrease creatinine GFR/1.73 sq M.predicted MDRD (S/P/Bld) [Vol rate/Area] 134 mL/min/{1.73_m2} >=60 mL/min/1.73sqm [facility] Comment on above: 2020 CKD EPI [...] Inclusion of Race in Diagnosing Kidney Disease. [place] Journal of Kidney Diseases 202;79(2):268-88.e1. 2. N Engl J Med 1 Vol. 385 Issue 19 Pages 5867-7084 Glucose [Mass/Vol] 119 mg/dL High 68 - 110 mg/dL [facility] Interpretation and review of laboratory results Abnormal [facility] Potassium [Moles/Vol] 3.6 mmol/L 3.3 - 5.3 mmol/L [facility] Sodium [Moles/Vol] 135 mmol/L 135 - 148 mmol/L [facility] Urea nitrogen [Mass/Vol] 3 mg/dL Low 8 - 22 mg/dL [facility] CBC WITH DIFFERENTIALon Basophils (Bld) [#/Vol] 0.03 [...] 9.9 g/dL Low 13.9 - 16.3 g/dL [facility] Interpretation and review of laboratory results [...] 1.35 10*3/uL Low 1.50 - 8.00 K/uL [facility] Neutrophils/100 WBC (Bld) 34.2 % 31.0 - 76.0 % [facility] Platelet mean volume (Bld) [Entitic vol] 7.3 fL Low 7.5 - 11.2 fL [facility] Platelets (Bld) [#/Vol] 114 10*3/uL Low 150 - 400 K/uL [facility] RBC (Bld) [#/Vol] 2.81 10*6/uL Low [facility] WBC (Bld) [#/Vol] 4.0 10*3/uL Low 4.5 - 11.5 K/uL [facility] and C hemistry - challengeon 03-13-2022 Albumin [Mass/Vol] 2.6 g/dL Low 3.4 - 5.1 g/dL [facility] ALP [Catalytic activity/Vol] 278 U/L High [facility] ALT [Catalytic activity/Vol] 33 U/L [facility] AST [Catalytic activity/Vol] 68 U/L High [facility] Bilirubin [Mass/Vol] 5.6 mg/dL High 0.1 - 1.5 mg/dL [facility] Bilirubin.direct [Mass/Vol] 1.20 mg/dL High 0.10 - 0.30 mg/dL [facility] LDH [Catalytic activity/Vol] 258 U/L High [facility] Protein [Mass/Vol] 6.2 g/dL 6.2 - 8.3 g/dL [facility] Urate [Mass/Vol] 3.0 mg/dL 2.0 - 7.3 mg/dL [facility] Laboratory - Hematology and Cell countson 03-13-2022 Haptoglobin [Mass/Vol] mg/dL Low 36 - 220 mg/dL [facility] No Panel Informationon 03-13 Interpretation and review of laboratory results Abnormal [facility] Interpretation and review of laboratory results Abnormal [facility] Interpretation and review of laboratory results Normal [facility] CHEMISTRYOrdered By: SYSTEM SYSTEM on 02-17-2022 Lactate [Mass/Vol] 1.8 mmol/L Normal 0.5 - 2.2 mmol/L [facility] Remisol Albumin [Mass/Vol] 2.8 g/dL Low 3.3 [...] (U) Negative (02/17/22 1:14 PM) Normal Negative [facility] [place]A Auto SS Ketones (U) [Mass/Vol] Negative (02/17/22 1:14 PM) Normal Negative [facility] [place] Auto SS [place].plasma/Lithi um.RBC (Bld) [Mass ratio] 0-3 /HPF Normal 0-3/HPF [facility] [place] Auto SS Nitrite Ql (U) Negative (02/17/22 1:14 PM) Normal Negative [facility] [place] Auto SS pH (U) 7.0 *NA* (02/17/22 1:14 PM) Invalid Interpretation Code 5.0 - 9.0 [facility] [place] Auto SS Protein (U) [Mass/Vol] Negative (02/17/22 1:14 PM) Normal Negative [facility] [place] Auto SS Specific gravity (U) [Rel density] <=1.005 *NA* (02/17/22 1:14 PM) Invalid Interpretation Code 1.005 - 1.030 [facility] [place] Auto SS UA Spec Desc Clean Catch (02/17/22 1:14 PM) Normal [facility] [place] Auto SS Urobilinogen Qn (U) [id number] {Alexey'U}/dL Normal 0.0 - 1.0 EU/dL [facility] [place] Auto SS WBC Auto Ql (U) Negative (02/17/22 1:14 PM) Normal Negative [facility] [place] Auto SS WBC LM.HPF (Urine sed) [#/Area] 0-5 /HPF Normal 0-5/HPF [facility] [place] Auto SS Basic metabolic [...] Inclusion of Race in Diagnosing Kidney Disease. [place] Journal of Kidney Diseases 202;79(2):268-88.e1. 2. [place] Engl J Med 2020 Vol. 385 Issue 19 Pages 9761-2702 Glucose [Mass/Vol] 105 mg/dL 68 - 110 mg/dL [facility] Interpretation and review of laboratory [...] [facility] RBC (Bld) [#/Vol] 2.69 10*6/uL [facility] WBC (Bld) [#/Vol] 4.9 10*3/uL 4.5 - 11.5 K/uL [facility] HAPTOGLOBINon 02-11-2022 Haptoglobin [Mass/Vol] mg/dL Low 36 - 220 mg/dL [facility] Interpretation and review of laboratory results Abnormal [facility] LDHon 02-11-2022 LDH [Catalytic activity/Vol] 321 U/L High [facility] Laboratory - Chemistry and C hemistry - challengeon 02-11-2022 Albumin [Mass/Vol] 2.8 g/dL Low 3.4 - 5.1 g/dL [facility] ALP [Catalytic activity/Vol] 226 U/L High [facility] ALT [Catalytic activity/Vol] 77 [facility] AST [Catalytic activity/Vol] 88 U/L High [facility] Bilirubin [Mass/Vol] 7.7 mg/dL High 0.1 - 1.5 mg/dL [facility] Bilirubin.direct [Mass/Vol] 1.70 mg/dL High 0.10 - 0.30 mg/dL [facility] Protein [Mass/Vol] 6.2 g/dL 6.2 - 8.3 g/dL [facility] MANUAL DIFF AND MORPHon Anisocytosis Ql (Bld) Slight [facility] Band form neutrophils/100 WBC (Bld) 5 % <=10 [facility] Bands # 0.25 K/uL High <0.01 [facility] Cells Counted Total (Bld) [#] 100 [...] 1 % [facility] Nucleated RBCs 1 K/uL [facility] Pol[facility]romasia LM Ql (Bld) Slight [facility] No Panel InformationOrdered By: Ami Brock on 02-11-2022 Interpretation and review of laboratory results Abnormal [facility] No Panel Informationon 02-11 Interpretation and review of laboratory results Abnormal [facility] RETICULOCYTE COUNTOrdered By : Kennedi Fuentes on 02-11-2022 Immature reticulocytes/Total reticulocytes (Bld) 0.45 % [facility] Interpretation and review of laboratory results Abnormal [facility] Reticulocytes (Bld) [#/Vol] 0.08 10*3/uL [facility] Reticulocytes/100 [...] [Mass/Vol] 84 mg/dL 68 - 110 mg/dL [facility] Potassium [Moles/Vol] 3.8 mmol/L 3.3 - 5.3 [...] 9.5 10*3/uL 4.5 - 11.5 K/uL [facility] GLUCOSE, FINGERSTICK-IN OFFI CEon 01-17-2022 Glucose [Mass/Vol] 188 mg/dL High 68 - 110 mg/dL [facility] Interpretation and review of laboratory results Abnormal [facility] HAPTOGLOBINon 01-17-2022 Haptoglobin [Mass/Vol] mg/dL Low 36 - 220 mg[facility] Interpretation and review of laboratory results Abnormal [facility] HEPATIC FUNCTION PANELon Albumin [Mass/Vol] 2.8 g/dL Low 3.4 - 5.1 g/dL [facility] ALP [Catalytic activity/Vol] 133 U/L [facility] ALT [Catalytic activity/Vol] 75 U/L High [facility] AST [Catalytic activity/Vol] 94 U/L High [facility] Bilirubin [Mass/Vol] 12.6 mg/dL High 0.1 - 1.5 mg/dL [facility] Bilirubin.direct [Mass/Vol] 2.40 mg/dL High 0.10 - 0.30 mg/dL [facility] Protein [Mass/Vol] 6.7 g/dL 6.2 - 8.3 g/dL [facility] LDHon 01-17-2022 LDH [Catalytic activity/Vol] 514 U/L High [facility] No Panel Informationon 01-17 Interpretation and review of laboratory results [facility]normal [facility] PROTHROMBIN TIME AND INRon 0 01-17-2022 INR Coag (PPP) [Relative time] 1.97 {INR} High [facility] Interpretation and review of laboratory results Abnormal [facility] PT Coag (PPP) [Time] 22.1 s High [facility] RETICULOCYTE COUNTon 022 Immature reticulocytes/Total reticulocytes (Bld) 0.61 % High [facility] Interpretation and review of laboratory results Abnormal [facility] Reticulocytes (Bld) [#/Vol] 0.14 10*3/uL High [facility] Reticulocytes/100 RBC (Bld) 6.5 % High 0.5 - 1.5 % [facility] Basic metabolic 2000 panelon 01-16-2022 Anion gap [Moles/Vol] 14 mmol/L [facility] Calcium [Mass/Vol] 8.3 mg/dL Low 8.4 - 10. 4 mg/dL [facility] Chloride [Moles/Vol] 98 mmol/L 97 - 111 mmol/L [facility] CO2 [Moles/Vol] 24 mmol/L 21 - 30 mmol/L [facility] Creatinine [Mass/Vol] 0.42 mg/dL Low 0.80 - 1.30 mg/dL [facility] GFR/1.73 sq M.predicted MDRD (S/P/Bld) [Vol rate/Area] 142 mL/min/{1.73_m2} >=60 mL/min/1.73sqm [facility] Glucose [Mass/Vol] 102 mg/dL 68 - 110 mg/dL [facility] Potassium [Moles/Vol] 3.7 mmol/L 3.3 - 5.3 mmol/L [facility] Sodium [Moles/Vol] 132 mmol/L Low 135 - 148 mmol/L [facility] Urea nitrogen [Mass/Vol] 9 mg/dL 8 - 22 mg/dL [facility] CBC panel Auto (Bld)on 01-16 Erythrocyte distribution width (RBC) [Ratio] 23.7 % High 11.5 - 14.5 % [facility] Hematocrit (Bld) [Volume fraction] 21.6 % Low 41.0 - 53.0 % [facility] Hemoglobin (Bld) [Mass/Vol] 7.4 g/dL Low 13.9 - 16.3 g/dL [facility] Interpretation and review of laboratory results Abnormal [facility] MCH (RBC) [Entitic mass] 38.6 pg High 26.0 - 34.0 pg [facility] MCHC (RBC) [Mass/Vol] 34.4 g/dL 32.0 - 35.9 g/dL [facility] MCV (RBC) [Entitic vol] 112 fL High 80 - 100 fL [facility] Platelet mean volume (Bld) [Entitic vol] 9.3 fL 7.5 - 11.2 fL [facility] Platelets (Bld) [#/Vol] 94 10*3/uL Low 150 - 400 K/uL [facility] RBC (Bld) [#/Vol] 1.92 10*6/uL Low [facility] WBC (Bld) [#/Vol] 9.2 10*3/uL 4.5 - 11.5 K/uL [facility] GLUCOSE, FINGERSTICK-IN OFFI CEon 01-16-2022 Glucose [Mass/Vol] 145 mg/dL High 68 - 110 mg/dL [facility] Interpretation and review of laboratory results Abnormal [facility] Glucose [Mass/Vol] 247 mg/dL High 68 - 110 mg/dL [facility] Interpretation and review of laboratory results Abnormal [facility] Glucose [Mass/Vol] 132 mg/dL High 68 - 110 mg/dL [facility] Interpretation and review of laboratory results Abnormal [facility] Glucose [Mass/Vol] 90 mg/dL 68 - 110 mg/dL [facility] Interpretation and review of laboratory results Normal [facility] HAPTOGLOBINon 01-16-2022 Haptoglobin [Mass/Vol] mg/dL Low 36 - 220 mg/dL [facility] Interpretation and review of laboratory results Abnormal [facility] HEPATIC FUNCTION PANELon Albumin [Mass/Vol] 2.7 g/dL Low 3.4 - 5.1 g/dL [facility] ALP [Catalytic activity/Vol] 124 U/L [facility] ALT [Catalytic activity/Vol] 69 U/L High [facility] AST [Catalytic activity/Vol] 93 U/L High [facility] Bilirubin [Mass/Vol] 12.7 mg/dL High 0.1 - 1.5 mg/dL [facility] Bilirubin.direct [Mass/Vol] 2.30 mg/dL High 0.10 - 0.30 mg/dL [facility] Protein [Mass/Vol] 6.3 g/dL 6.2 - 8.3 g/dL [facility] LDHon 01-16-2022 LDH [Catalytic activity/Vol] 476 U/L High [facility] No Panel Informationon 01-16 Interpretation and review of laboratory results Abnormal [facility] PROTHROMBIN TIME AND INRon 0 01-16-2022 INR Coag (PPP) [Relative time] 2.08 {INR} High [facility] Interpretation and review of laboratory results Abnormal [facility] PT Coag (PPP) [Time] 23.3 s High [facility] Basic metabolic 2000 panelon 01-15-2022 Anion gap [Moles/Vol] 14 mmol/L [facility] Calcium [Mass/Vol] 7.9 mg/dL Low 8.4 - 10. 4 mg/dL [facility] Chloride [Moles/Vol] 97 mmol/L 97 - 111 mmol/L [facility] CO2 [Moles/Vol] 25 mmol/L 21 - 30 mmol/L [facility] Creatinine [Mass/Vol] 0.42 mg/dL Low 0.80 - 1.30 mg/dL [facility] GFR/1.73 sq M.predicted MDRD (S/P/Bld) [Vol rate/Area] 142 mL/min/{1.73_m2} >=60 mL/min/1.73sqm [facility] Glucose [Mass/Vol] 112 mg/dL High 68 - 110 mg/dL [facility] Potassium [Moles/Vol] 3.5 mmol/L 3.3 - 5.3 [...] 7.3 g/dL Low 13.9 - 16.3 g/dL [facility] Interpretation and review of laboratory results [...] 8.9 10*3/uL 4.5 - 11.5 K/uL [facility] GLUCOSE, FINGERSTICK-IN OFFI ESTRELLITAon 01-15-2022 Glucose [Mass/Vol] 149 mg/dL High 68 - 110 mg/dL [facility] Interpretation and review of laboratory results Abnormal [facility] Glucose [Mass/Vol] 175 mg/dL High 68 - 110 mg/dL [facility] Interpretation and review of laboratory results Abnormal [facility] Glucose [Mass/Vol] 129 mg/dL High 68 - 110 mg/dL [facility] Interpretation and review of laboratory results Abnormal [facility] Glucose [Mass/Vol] 148 mg/dL High 68 - 110 mg/dL [facility] Interpretation and review of laboratory results Abnormal [facility] HAPTOGLOBINon 01-15-2022 Haptoglobin [Mass/Vol] mg/dL Low 36 - 220 mg/dL [facility] Interpretation and review of laboratory results Abnormal [facility] HEPATIC FUNCTION PANELon Albumin [Mass/Vol] 2.6 g/dL Low 3.4 - 5.1 g/dL [facility] ALP [Catalytic activity/Vol] 182 U/L [facility] ALT [Catalytic activity/Vol] 65 U/L High [facility] AST [Catalytic activity/Vol] 104 U/L High [facility] Bilirubin [Mass/Vol] 10.8 mg/dL High 0.1 - 1.5 mg/dL [facility] Bilirubin.direct [Mass/Vol] 2.10 mg/dL High 0.10 - 0.30 mg/dL [facility] Protein [Mass/Vol] 6.5 g/dL 6.2 - 8.3 g/dL [facility] LDHon 01-15-2022 LDH [Catalytic activity/Vol] 481 U/L High [facility] No Panel Informationon 01-15 Interpretation and review of laboratory results Abnormal [facility] PROTHROMBIN TIME AND INRon 0 01-15-2022 INR Coag (PPP) [Relative time] 1.89 {INR} High [facility] Interpretation and review of laboratory results Abnormal [facility] PT Coag (PPP) [Time] 21.2 s High [facility] Basic metabolic 2000 panelon 01-14-2022 Anion gap [Moles/Vol] 11 mmol/L [facility] Calcium [Mass/Vol] 8.2 mg/dL Low 8.4 - 10. 4 mg/dL [facility] Chloride [Moles/Vol] 101 mmol/L 97 - 111 mmol/L [facility] CO2 [Moles/Vol] 27 mmol/L 21 - 30 mmol/L [facility] Creatinine [Mass/Vol] 0.44 mg/dL Low 0.80 - 1.30 mg/dL [facility] GFR/1.73 sq M.predicted MDRD (S/P/Bld) [Vol rate/Area] 140 mL/min/{1.73_m2} >=60 mL/min/1.73sqm [facility] Glucose [Mass/Vol] 136 mg/dL High 68 - 110 mg/dL [facility] Potassium [Moles/Vol] 3.4 mmol/L 3.3 - [...] 139 mg/dL High 68 - 110 mg/dL [facility] Interpretation and review of laboratory results Abnormal [facility] Glucose [Mass/Vol] 203 mg/dL High 68 - 110 mg/dL [facility] Interpretation and review of laboratory results Abnormal [facility] Glucose [Mass/Vol] 143 mg/dL High 68 - 110 mg/dL [facility] Interpretation and review of laboratory results Abnormal [facility] Glucose [Mass/Vol] 154 mg/dL High 68 - 110 mg/dL [facility] Interpretation and review of laboratory results Abnormal [facility] HAPTOGLOBINon 01-14-2022 Haptoglobin [Mass/Vol] mg/dL Low 36 - 220 mg/dL [facility] Interpretation and review of laboratory results Abnormal [facility] HEPATIC FUNCTION PANELon Albumin [Mass/Vol] 2.6 g/dL Low 3.4 - 5.1 g/dL [facility] ALP [Catalytic activity/Vol] 177 U/L [facility] ALT [Catalytic activity/Vol] 62 U/L High [facility] AST [Catalytic activity/Vol] 104 U/L High [facility] Bilirubin [Mass/Vol] 11.5 mg/dL High 0.1 - 1.5 mg/dL [facility] Bilirubin.direct [Mass/Vol] 2.20 mg/dL High 0.10 - 0.30 mg/dL [facility] Protein [Mass/Vol] 6.4 g/dL 6.2 - 8.3 g/dL [facility] LDHon 01-14-2022 LDH [Catalytic activity/Vol] 473 U/L High [facility] Laboratory - Microbiology an d Antimicrobial susceptibilityon 01-14-2022 Bacteria identified Cx Nom (Bld) No Growth [facility] MANUAL DIFF AND MORPHon 01-05 Anisocytosis Ql (Bld) Marked [facility] [place] cells LM Ql (Bld) Few [facility] Cells Counted Total (Bld) [#] 100 {cells} [facility] Eosinophils (Bld) [#/Vol] 0.15 10*3/uL 0.00 - 0.70 K/uL [facility] Eosinophils/100 WBC (Bld) 2.0 % 0.1 [...] Interpretation and review of laboratory results [facility] Interpretation and review of laboratory results Abnormal [facility] No Panel InformationOrdered By: Erika Martin on 01-14-2022 Interpretation and review of laboratory results Abnormal [facility] PROTHROMBIN TIME AND INRon 0 01-14-2022 INR Coag (PPP) [Relative time] 1.94 {INR} High [facility] Interpretation and review of laboratory results Abnormal [facility] PT Coag (PPP) [Time] 21.8 s High [facility] Basic metabolic 2000 panelon 01-13-2022 Anion [...] 130 mg/dL High 68 - 110 mg/dL [facility] Potassium [Moles/Vol] 3.4 mmol/L 3.3 - 5.3 mmol/L [facility] Sodium [Moles/Vol] 135 mmol/L 135 - 148 mmol/L [facility] Urea nitrogen [Mass/Vol] 6 mg/dL Low 8 - 22 mg/dL [facility] CBC WITH DIFFERENTIALon Erythrocyte distribution width [...] Interpretation and review of laboratory results Abnormal [facility] FACTOR VIII ASSAYOrdered By: Jozef Gibbons on 01-13-2022 Factor VIII Assay 356 % High 55 - 180 % [facility] Interpretation and review of laboratory results Abnormal [facility] GLUCOSE, FINGERSTICK-IN OFFI CEon 01-13-2022 Glucose [Mass/Vol] 185 mg/dL High 68 - 110 mg/dL [facility] Glucose [Mass/Vol] 226 mg/dL High 68 - 110 mg/dL [facility] Glucose [Mass/Vol] 152 mg/dL High 68 - 110 mg/dL [facility] Interpretation and review of laboratory results Abnormal [facility] Glucose [Mass/Vol] 140 mg/dL High 68 - 110 mg/dL [facility] Interpretation and review of laboratory results Abnormal [facility] HAPTOGLOBINon 01-13-2022 Haptoglobin [Mass/Vol] mg/dL Low 36 - 220 mg/dL [facility] Interpretation and review of laboratory results Abnormal [facility] HEPATIC FUNCTION PANELon Albumin [Mass/Vol] 2.6 g/dL Low 3.4 - 5.1 g/dL [facility] ALP [Catalytic activity/Vol] 169 U/L [facility] ALT [Catalytic activity/Vol] 63 U/L High [facility] AST [Catalytic activity/Vol] 124 U/L High [facility] Bilirubin [Mass/Vol] 11.4 mg/dL High 0.1 - 1.5 mg/dL [facility] Bilirubin.direct [Mass/Vol] 2.10 mg/dL High 0.10 - 0.30 mg/dL [facility] Protein [Mass/Vol] 6.2 g/dL 6.2 - 8.3 g/dL [facility] HEPATITIS C QUANT BY PCROrde red By: Gera Meza on 01-13-2022 HCV RNA panel ANGIE+probe Not detected Not Detected [facility] LDHon 01-13-2022 LDH [Catalytic activity/Vol] 497 U/L High [facility] MANUAL DIFF AND MORPHon Anisocytosis Ql (Bld) Marked [facility] Atypical Lymph # 0.15 K/uL [facility] Band form neutrophils/100 WBC (Bld) 8 % <=10 [facility] Bands # 0.58 K/uL High <0.01 [facility] [place] cells LM Ql (Bld) Few [facility] Cells [...] PT Coag (PPP) [Time] 23.0 s High [facility] Basic metabolic 2000 panelon 01-12-2022 Anion [...] 147 mg/dL High 68 - 110 mg/dL [facility] Interpretation and review of laboratory [...] 8.0 10*3/uL 4.5 - 11.5 K/uL [facility] GLUCOSE, FINGERSTICK-IN OFFI CEon 01-12-2022 Glucose [Mass/Vol] 140 mg/dL High 68 - 110 mg/dL [facility] Interpretation and review of laboratory results Abnormal [facility] Glucose [Mass/Vol] 157 mg/dL High 68 - 110 mg/dL [facility] Interpretation and review of laboratory results Abnormal [facility] HAPTOGLOBINon 01-12-2022 Haptoglobin [Mass/Vol] mg/dL Low 36 - 220 mg/dL [facility] Interpretation and review of laboratory results Abnormal [facility] HEPATIC FUNCTION PANELon Albumin [Mass/Vol] 2.6 g/dL Low 3.4 - 5.1 g/dL [facility] ALP [Catalytic activity/Vol] 148 U/L [facility] ALT [Catalytic activity/Vol] 61 U/L High [facility] AST [Catalytic activity/Vol] 131 U/L High [facility] Bilirubin [Mass/Vol] 11.1 mg/dL High 0.1 - 1.5 mg/dL [facility] Bilirubin.direct [Mass/Vol] 2.10 mg/dL High 0.10 - 0.30 mg/dL [facility] Protein [Mass/Vol] 6.4 g/dL 6.2 - 8.3 g/dL [facility] LDHon 01-12-2022 LDH [Catalytic activity/Vol] 458 U/L [...] Slight [facility] Anisocytosis Ql (Bld) Marked [facility] [place] cells LM Ql (Bld) Few [facility] Cells [...] 149 mg/dL High 68 - 110 mg/dL [facility] Potassium [Moles/Vol] 3.4 mmol/L 3.3 - [...] (Bld) 73.3 % 31.0 - 76.0 % [facility] Platelet mean volume (Bld) [Entitic vol] 8.4 fL 7.5 - 11.2 fL [facility] Platelets (Bld) [#/Vol] 62 10*3/uL Low 150 - 400 K/uL [facility] RBC (Bld) [#/Vol] 1.54 10*6/uL Low [facility] WBC (Bld) [#/Vol] 7.3 10*3/uL 4.5 - 11.5 K/uL [facility] GLUCOSE, FINGERSTICK-IN OFFI CEon 01-11-2022 Glucose [Mass/Vol] 167 mg/dL High 68 - 110 mg/dL [facility] Interpretation and review of laboratory results Abnormal [facility] HAPTOGLOBINon 01-11-2022 Haptoglobin [Mass/Vol] mg/dL Low 36 - 220 mg/dL [facility] Interpretation and review of laboratory results Abnormal [facility] HEPATIC FUNCTION PANELon Albumin [Mass/Vol] 2.6 g/dL Low 3.4 - 5.1 g/dL [facility] ALP [Catalytic activity/Vol] 95 U/L [facility] ALT [Catalytic activity/Vol] 57 U/L High [facility] AST [Catalytic activity/Vol] 143 U/L High [facility] Bilirubin [Mass/Vol] 11.4 mg/dL High 0.1 - 1.5 mg/dL [facility] Bilirubin.direct [Mass/Vol] 2.20 mg/dL High 0.10 - 0.30 mg/dL [facility] Protein [Mass/Vol] 5.7 g/dL Low 6.2 - 8.3 g/dL [facility] LDHon 01-11-2022 LDH [Catalytic activity/Vol] 428 U/L High [facility] Laboratory - Blood bankon ABO and Rh group Nom (Bld) Blood group A Rh(D) positive [facility] MAGNESIUMon 01-11-2022 Interpretation and review of laboratory results Normal [facility] Magnesium [Mass/Vol] 2.0 mg/dL 1.6 - 2.8 mg/dL [facility] MANUAL DIFF AND MORPHon 05-0 Band form neutrophils/100 WBC (Bld) 3 % <=10 [facility] Bands # 0.22 K/uL High <0.01 [facility] [place] cells LM Ql (Bld) Few [facility] Cells [...] Few [facility] Anisocytosis Ql (Bld) Marked [facility] [place] cells LM Ql (Bld) Few [facility] Cells [...] Abnormal [facility] No Panel Informationon 01-11 [facility] Interpretation and review of laboratory results Abnormal [facility] PROTHROMBIN TIME AND INRon 0 01-11-2022 INR Coag (PPP) [Relative time] 2.16 {INR} High [facility] Interpretation and review of laboratory results Abnormal [facility] PT Coag (PPP) [Time] 24.2 s High [facility] TYPE AND SCREENon 01-11-2022 ABO and Rh group Nom (Bld) Blood group A Rh(D) positive [facility] ABO and Rh group Nom (Bld) No Previous Results [facility] Blood group antibody screen Ql Negative [facility] Basic metabolic 2000 panelon 01-10-2022 Anion gap [...] 165 mg/dL High 68 - 110 mg/dL [facility] Interpretation and review of laboratory [...] g/dL Critically low 13.9 - 16.3 g/dL [facility] Interpretation and review of laboratory [...] [Mass/Vol] mg/dL Low 36 - 220 mg/dL [facility] Interpretation and review of laboratory results Abnormal [facility] HEPATIC FUNCTION PANELon Albumin [Mass/Vol] 2.7 g/dL Low 3.4 - 5.1 g/dL [facility] ALP [Catalytic activity/Vol] 87 U/L [facility] ALT [Catalytic activity/Vol] 54 U/L High [facility] AST [Catalytic activity/Vol] 147 U/L High [facility] Bilirubin [Mass/Vol] 11.1 mg/dL High 0.1 - 1.5 mg/dL [facility] Bilirubin.direct [Mass/Vol] 2.60 mg/dL High 0.10 - 0.30 mg/dL [facility] Protein [Mass/Vol] 6.0 g/dL Low 6.2 - 8.3 g/dL [facility] LDHOrdered By: Jarrod cruz on 01-10-2022 Interpretation and review of laboratory results Abnormal [facility] LDH [Catalytic activity/Vol] 378 U/L High [facility] Laboratory - Microbiology an d Antimicrobial susceptibilityon 01-10-2022 RSV RNA ANGIE+probe Ql (Unsp spec) Negative Negative [facility] - Specimen inform ationon 01-10-2022 Specimen source Nom (Unsp spec) Negative Negative [facility] MAGNESIUMon 01-10-2022 Interpretation and review of laboratory results Normal [facility] Magnesium [Mass/Vol] 1.7 mg/dL 1.6 - 2.8 mg/dL [facility] MANUAL DIFF AND MORPHon Acanthocytes LM Ql [...] [facility] Target cells LM Ql (Bld) Few [facility] No Panel Informationon 01-10 [facility] Interpretation and review of laboratory results Abnormal [facility] No Panel InformationOrdered By: Meka Morales on 01-10-2022 [facility] PARTIAL THROMBOPLASTIN TIMEo n 01-10-2022 aPTT Coag (Bld) [Time] 29 s [facility] Interpretation and review of laboratory results Normal [facility] PROTHROMBIN TIME AND INRon 0 01-10-2022 INR Coag (PPP) [Relative time] 1.79 {INR} High [facility] Interpretation and review of laboratory results Abnormal [facility] PT Coag (PPP) [Time] 20.1 s High [facility] BLOOD CELL COMPONENTon 0 01-10-2022 BB Order Item Product status info to follow [facility] RESPIRATORY VIRUS PANEL, PCR on 01-10-2022 Adenovirus DNA ANGIE+probe Ql (Unsp spec) Negative Negative [facility] C. pneumoniae DNA ANGIE+probe Ql (Unsp spec) Negative Negative [facility] FLUAV H1 RNA ANGIE+probe Ql (Unsp spec) Negative Negative [facility] FLUAV H3 RNA ANGIE+probe Ql (Unsp spec) Negative Negative [facility] FLUAV RNA ANGIE+probe Ql (Unsp spec) Negative Negative [facility] FLUBV RNA ANGIE+probe Ql (Unsp spec) Negative Negative [facility] HCoV HKU1 RNA ANGIE+probe Ql (Unsp spec) Negative Negative [facility] HCoV NL63 RNA ANGIE+probe Ql (Unsp spec) Negative Negative [facility] hMPV RNA ANGIE+probe Ql (Unsp spec) Negative Negative [facility] Interpretation and review of laboratory results Normal [facility] M. pneumoniae DNA ANGIE+probe Ql (Unsp spec) Negative Negative [facility] Parainfluenza virus 1 RNA ANGIE+probe Ql (Unsp spec) Negative Negative [facility] Parainfluenza virus 2 RNA ANGIE+probe Ql (Unsp spec) Negative Negative [facility] Parainfluenza virus 3 RNA ANGIE+probe Ql (Unsp spec) Negative Negative [facility] Parainfluenza virus 4 RNA ANGIE+probe Ql (Unsp spec) Negative Negative [facility] Rhinovirus RNA ANGIE+probe Nom (Unsp spec) Negative Negative [facility] US HEP PORT SPLEN VEIN + DOP PLERon 01-10-2022 RADIOLOGY [facility] Radiology Study observation (narrative) [facility] US SPLEENon 01-10-2022 [facility]Y [facility] Radiology Study observation (narrative) [facility] SPLEENOrdered By: Enrique Basurto on 01-10-2022 [facility] Work Phone: AMMONIAon 01-09-2022 Ammonia (P) [Moles/Vol] 74 umol/L High 11 - 35 umol/L [facility] Interpretation and review of laboratory results Abnormal [facility] AUTOIMMUNE MULTIPLEX PANELon 01-09-2022 Interpretation and review of laboratory results Normal [facility] Nuclear Ab IA Ql (S) Negative Negative [facility] Basic metabolic 2000 panelon 01-09-2022 Anion gap [...] 142 mg/dL High 68 - 110 mg/dL [place] [facility] Potassium [Moles/Vol] 4.0 mmol/L 3.3 - 5.3 mmol/L [facility] Sodium [Moles/Vol] 133 mmol/L Low 135 - 148 mmol/L [facility] Urea nitrogen [Mass/Vol] 7 mg/dL Low 8 - 22 mg/dL [facility] CBC WITH DIFFERENTIALOrdered By: Norris Billings [...] Interpretation and review of laboratory results Abnormal [facility] HEPATIC FUNCTION PANELon Albumin [Mass/Vol] 2.7 g/dL Low 3.4 - 5.1 g/dL [facility] ALP [Catalytic activity/Vol] 92 U/L [facility] ALT [Catalytic activity/Vol] 47 U/L High [facility] AST [Catalytic activity/Vol] 124 U/L High [facility] Bilirubin [Mass/Vol] 11.2 mg/dL High 0.1 - 1.5 mg/dL [facility] Bilirubin.direct [Mass/Vol] 2.50 mg/dL High 0.10 - 0.30 mg/dL [facility] Protein [Mass/Vol] 6.0 g/dL Low 6.2 - 8.3 g/dL [facility] HIV 1 and 2 Ab and HIV 1 p24 Ag panel IAon 01-09-2022 HIV 1+2 Ab+HIV1 p24 Ag IA Ql Non-Reactive Non-Reactive [facility] Interpretation and review of laboratory results Normal [facility] Lipid 1996 panelon 2 Cholesterol [Mass/Vol] [...] Few [facility] Anisocytosis Ql (Bld) Marked [facility] [place] cells LM Ql (Bld) Few [facility] Cells Counted Total (Bld) [#] [facility] Macrocytes Ql (Bld) Slight [facility] Ovalocytes LM Ql (Bld) Many [facility] Polychromasia LM Ql (Bld) Slight [facility] RBC.hypochromic/100 RBC Auto (Bld) Slight [facility] Schistocytes LM Ql (Bld) Few [facility] Target cells LM Ql (Bld) Few [facility] No Panel InformationOrdered By: Norris Billings on 01-09-2022 [facility] No Panel InformationOrdered By: Mi Alcazar on 01-09-2022 [facility] No Panel Informationon 01-09 Interpretation and review of laboratory results [facility] PROT[facility]OMBIN TIME AND INRon 0 01-09-2022 INR Coag (PPP) [Relative time] 1.94 {INR} High [facility] Interpretation and review of laboratory results Abnormal [facility] PT Coag (PPP) [Time] 21.8 s High [facility] RED BLOOD CELL COMPONENTon 0 01-09-2022 BB Order Item Product status info to follow [facility] THYROXINE (T4), FREEon 01-09 Free T4 [Mass/Vol] 0.88 ng/dL 0.45 - 1. 80 ng/dL [facility] Interpretation and review of laboratory results Normal [facility] XR ABDOMEN 1 VIEW APon 01-09 RADIOLOGY [facility] Radiology Study observation (narrative) [facility] X[facility] ABDOMEN 1 VIEW APOrdered By: Ulysses Omalley on 01-09-2022 [facility] Work Phone: ACETAMINOPHENon 01-08-2022 Acetaminophen [Mass/Vol] [...] antiglobulin test.complement specific reagent Ql (RBC) Negative [facility] Direct antiglobulin test.IgG specific reagent (RBC) [Interp] Positive [facility] Direct antiglobulin test.poly specific reagent Ql (RBC) Positive [facility] EKG 12 LEAD - PERFORMon Diagnosis [facility] P wave [facility]rium by E[facility] B[facility] axis 46 degrees [facility] P-R Interval 132 ms [facility] Q-T interval 422 ms [facility] Q-T interval corrected 474 ms [facility] QRS axis 44 degrees [facility] QRS duration 86 ms [facility] T wave axis 22 degrees [facility] FERRITINon 01-08-2022 Ferritin [Mass/Vol] 829.1 ng/mL High 11.5 - 3 00.0 ng/mL [facility] Interpretation and review of laboratory results Abnormal [facility] FOLIC ACIDon 01-08-2022 Folate [Mass/Vol] 13.9 ng/mL 5.9 - 24.7 ng/mL [facility] Interpretation and review of laboratory results Normal [facility] GLUCOSE, FINGERSTICK-IN OFFI CEon 01-08-2022 Glucose [Mass/Vol] 94 mg/dL 68 - 110 mg/dL [facility] Interpretation and review of laboratory results Normal [facility] HAPTOGLOBINon 01-08-2022 Haptoglobin [Mass/Vol] mg/dL Low 36 - 220 mg/dL [facility] Interpretation and review of laboratory results Abnormal [facility] HCV Ab IA Qn (S)on 2 HCV Ab Ql (S) Non-Reactive Nonreactive [facility] Interpretation and review of laboratory results Normal [facility] HEPATIC FUNCTION PANELon Albumin [Mass/Vol] 2.9 g/dL Low 3.4 - 5.1 g/dL [facility] ALP [Catalytic activity/Vol] 121 U/L [facility] ALT [Catalytic activity/Vol] 50 U/L High [facility] AST [Catalytic activity/Vol] 129 U/L High [facility] Bilirubin [Mass/Vol] 11.1 mg/dL High 0.1 - 1.5 mg/dL [facility] Bilirubin.direct [Mass/Vol] 2.40 mg/dL High 0.10 - 0.30 mg/dL [facility] Protein [Mass/Vol] 6.4 g/dL 6.2 - 8.3 g/dL [facility] HEPATITIS A IGM ANTIBODYon 0 01-08-2022 HAV IgM IA Ql Non-Reactive Nonreactive [facility] Interpretation and review of laboratory results Normal [facility] HEPATITIS A TOTAL ANTIBODYon 01-08-2022 HAV Ab IA Ql (S) Reactive Abnormal Nonreactive [facility] Interpretation and review of laboratory results Abnormal [facility] HEPATITIS B CORE ANTIBODYon 01-08-2022 HBV core Ab Ql (S) Non-Reactive Nonreactive [facility] Interpretation and review of laboratory results Normal [facility] HEPATITIS B SURFACE ANTIBODY on 01-08-2022 HBV surface Ab IA Qn m[IU]/mL mIU/mL [facility] HEPATITIS B SURFACE ANTIGENo n 01-08-2022 HBV surface Ag Ql (S) Non-Reactive Non-Reactive [facility] Interpretation and review of laboratory results Normal [facility] IRON AND TIBCon 01-08-2022 Interpretation and review of laboratory results Abnormal [facility] Iron [Mass/Vol] 145 ug/dL 45 - 160 ug/dL [facility] Iron binding capacity [Mass/Vol] 214 ug/mL Low 250 - 410 ug/mL [facility] Iron saturation [Mass fraction] 68 % High 20 - 55 % [facility] Transferrin [Mass/Vol] 153 mg/dL Low 210 - 375 mg/dL [facility] LACTIC ACIDOrdered By: Arnol kowalski on 01-08-2022 Interpretation and review of laboratory results Normal [facility] Lactate [Moles/Vol] 1.1 mmol/L 0.5 - 2. 0 mmol/L [facility] LDHOrdered By: Yaritza staton on 01-08-2022 Interpretation and review of laboratory results Abnormal [facility] LDH [Catalytic activity/Vol] 369 U/L [facility] MAGNESIUMon 01-08-2022 Interpretation and review of laboratory results Normal [facility] Magnesium [Mass/Vol] 1.7 mg/dL 1.6 - 2.8 mg/dL [facility] MANUAL DIFF AND MORPHon 05- Anisocytosis Ql (Bld) Marked [facility] Cells Counted Total (Bld) [#] [facility] Macrocytes Ql (Bld) Slight [facility] Polychromasia LM Ql (Bld) Slight [facility] Acanthocytes LM Ql (Bld) Few [facility] [place] cells LM Ql (Bld) Few [facility] Cells Counted Total (Bld) [#] [facility] Macrocytes Ql (Bld) Slight [facility] Polychromasia LM Ql (Bld) Slight [facility] No Panel InformationOrdered By: Fiorella Cochran on 01-08-2022 [facility] No Panel Informationon 01-08 Interpretation and review of laboratory results Abnormal [facility] No Panel InformationOrdered By: Rafy Carr on 01-08-2022 [facility] No Panel InformationOrdered By: Crow Werner on 01-08-2022 [facility] Work Phone: PROTHROMBIN TIME AND INRon 0 01-08-2022 INR Coag (PPP) [Relative time] 1.78 {INR} High [facility] Interpretation and review of laboratory results Abnormal [facility] PT Coag (PPP) [Time] 20.0 s High [facility] RETICULOCYTE COUNTOrdered By : Deborah Che on 01-08-2022 Immature reticulocytes/Total reticulocytes (Bld) 0.56 % High [facility] Interpretation and review of laboratory results Abnormal [facility] Reticulocytes (Bld) [#/Vol] 0.10 10*3/uL High [facility] Reticulocytes/100 RBC (Bld) 5.2 % High 0.5 - 1.5 % [facility] TSHon 01-08-2022 Interpretation and review of laboratory results Abnormal [facility] TSH Qn 6.627 m[IU]/L [facility] US ASCITES SURVEY 4 QUADRANT Son 01-08-2022 [facility]Y [facility] Radiology Study observation (narrative) [facility] ASCITES SURVEY 4 QUADRANT SOrdered By: Loreta Rizzo on 01-08-2022 [facility] Work Phone: US LIVER/GALL BLADDER/PANCRE ASon 01-08-2022 [facility]Y [facility] Rad[facility] Study observation (narrative) [facility] VITAMIN B12 (CYANOCOBALAMIN) on 01-08-2022 Cobalamin (Vitamin B12) [Moles/Vol] 1299 pg/mL >300 [facility] Interpretation and review of laboratory results Normal [facility] XR ELBOW LEFT MINIMUM 3 VIEW Son 01-08-2022 Radiology Study observation (narrative) [facility] XR HUMERUS LEFTon 01-08-2022 Radiology Study observation (narrative) [facility] XR ORBITSon 01-08-2022 RADIOLOGY [facility] Radiology Study observation (narrative) [facility] XR ORBITSOrdered By: Philipp Salgado on 01-08-2022 [facility] Work Phone: BLOOD BANKOrdered By: Destiny [...] increase of schistocytes. No hypersegmented granulocytes seen.D64.9CPT 41305 Invalid Interpretation Code [facility] HemeManSS URINALYSISOrdered By: [...] Interpretation Code Negative [facility] UA Auto SS [place].plasma/Lithi um.RBC (Bld) [Mass ratio] 0-3 /HPF Normal 0-3/HPF [facility] UA Auto SS Mucus Ql (Urine sed) Trace (01/07/22 12:30 PM) Normal [facility] UA Auto SS Nitrite Ql (U) Negative (01/07/22 12:30 PM) Normal Negative [facility] [place] Auto SS pH (U) 7.5 *NA* (01/07/22 12:30 PM) Invalid Interpretation Code 5.0 - 9.0 [facility] UA Auto SS Protein (U) [Mass/Vol] Negative (01/07/22 12:30 PM) Normal Negative [facility] [place]A Auto SS Specific gravity (U) [Rel density] 1.010 *NA* (01/07/22 12:30 PM) Invalid Interpretation Code 1.005 - 1.030 [facility] UA Auto SS UA Spec Desc Clean Catch (01/07/22 12:30 PM) Normal [facility] UA Auto SS Urobilinogen Qn (U) [id number] {Alexey'U}/dL Invalid Interpretation Code 0.0 - 1.0 EU/dL [facility] [place]A Auto SS WBC Auto Ql (U) Negative (01/07/22 12:30 PM) Normal Negative [facility] [place]A Auto SS WBC LM.HPF (Urine sed) [#/Area] 0-5 /HPF Normal 0-5/HPF [facility] UA Auto SS Vital Signs [...] 10:50-0400 Systolic blood pressure 136 mm[Hg] Evelio Carr [facility] 01-03-2025 10:49-0400 Respiratory rate 14 /min Evelio Crar [facility] 12-20-2024 08:21-0400 Diastolic [...] 11-18-2024 09:13-0400 Diastolic blood pressure 62 mm[Hg] Martin Sarmini [facility] [...] 10-05-2024 09:00-0500 Blood Pressure Location Vic Sosinski [employer] [facility] 10-05-2024 09:00-0500 Diastolic blood pressure 78 mm[Hg] Vic Moserinski [employer] [facility] 10-05-2024 09:00-0500 Heart rate 78 /min Vic Moserinski [employer] [facility] 10-05-2024 09:00-0500 SaO2% (BldA) [Mass fraction] 100 % Vic Sosinski [employer] [facility] 10-05-2024 09:00-0500 Systolic blood pressure 138 mm[Hg] Vic Sosinski [employer] [facility] 09-29-2024 13:43-0500 Body temperature 98.24 [degF] [facility] 09-29-2024 13:43-0500 Diastolic blood pressure 77 mm[Hg] [facility] 09-29-2024 13:43-0500 Heart rate 74 /min [facility] 09-29-2024 13:43-0500 Mean blood pressure 96 mm[Hg] [facility] 09-29-2024 13:43-0500 Respiratory rate 16 /min [facility] 09-29-2024 13:43-0500 SaO2% (BldA) [Mass fraction] 100 % Kavon Lu [facility] 09-29-2024 13:43-0500 Systolic blood pressure 133 mm[Hg] Kavon Lu [facility] 08-19-2024 17:23-0500 Diastolic blood pressure 90 mm[Hg] Loreta Cummings [facility] 08-19-2024 17:23-0500 Mean blood pressure 113 mm[Hg] Loreta Cummings [facility] 08-19-2024 17:23-0500 Systolic blood pressure 160 mm[Hg] Loreta Cummings [facility] 08-19-2024 15:27-0500 Blood Pressure Location Loreta Cummings [facility] 08-19-2024 15:27-0500 Body temperature 98.42 [degF] Loreta Cummings [facility] 08-19-2024 15:27-0500 Diastolic blood pressure 68 mm[Hg] Loreta Cummings [facility] 08-19-2024 15:27-0500 Heart rate 70 /min Loreta Cummings [facility] 08-19-2024 15:27-0500 Respiratory rate 18 /min Loreta Cummings [facility] 08-19-2024 15:27-0500 Systolic blood pressure 146 mm[Hg] Loreta Cummings [facility] 06-09-2024 13:26-0400 Blood Pressure Location Mario Evans [facility] 06-09-2024 13:26-0400 Diastolic blood pressure 77 mm[Hg] Martin Sarmini [facility] 06-09-2024 13:26-0400 Heart rate 72 /min Martin Sarmini [facility] 06-09-2024 13:26-0400 Systolic blood pressure 127 mm[Hg] Martin Sarmini [facility] 05-12-2024 15:35-0400 Blood Pressure Location Martin Sarmini [facility] 05-12-2024 15:35-0400 Diastolic blood pressure 72 mm[Hg] Martin Sarmini [facility] 05-12-2024 15:35-0400 Heart rate 77 /min Martin Sarmini [facility] 05-12-2024 15:35-0400 Systolic blood pressure 114 mm[Hg] Martin Sarmini [facility] 05-12-2024 09:36-0400 Body height 170.2 cm Radha Bertrand MD Work Phone: [facility] 05-12-2024 09:36-0400 Body mass index (BMI) [Ratio] 25.56 kg/m2 Radha Bertrand MD Work Phone: [facility] 05-12-2024 09:36-0400 Body weight 74.03 kg Radha Bertrand MD Work Phone: [facility] 05-12-2024 09:36-0400 Diastolic blood pressure 76 mm[Hg] Radha Bertrand MD Work Phone: [facility] 05-12-2024 09:36-0400 Heart rate 65 /min Radha Bertrand MD Work Phone: [facility] 05-12-2024 09:36-0400 SaO2% (BldA) [Mass fraction] 97 % Radha Bertrand MD Work Phone: [facility] 05-12-2024 09:36-0400 Systolic blood pressure 132 mm[Hg] Radha Bertrand MD Work Phone: [facility] 05-11-2024 09:08-0400 Body temperature 98.06 [degF] [facility] 05-11-2024 09:08-0400 Diastolic blood pressure 58 mm[Hg] [facility] 05-11-2024 09:08-0400 Heart rate 71 /min [facility] 05-11-2024 09:08-0400 Mean blood pressure 80 mm[Hg] [facility] 05-11-2024 09:08-0400 Respiratory rate 16 /min [facility] 05-11-2024 09:08-0400 SaO2% (BldA) [Mass fraction] 100 % [facility] 05-11-2024 09:08-0400 Systolic blood pressure 123 mm[Hg] [facility] 04-29-2024 09:05-0400 Blood Pressure Location Loreta Cummings [facility] 04-29-2024 09:05-0400 Body temperature 98.24 [degF] Loreta Cummings [facility] 04-29-2024 09:05-0400 Diastolic blood pressure 76 mm[Hg] Loreta Cumminsg [facility] 04-29-2024 09:05-0400 Heart rate 90 /min Loreta Cummings [facility] 04-29-2024 09:05-0400 Respiratory rate 18 /min Loreta Cummings [facility] 04-29-2024 09:05-0400 SaO2% (BldA) [Mass fraction] 99 % Loreta [facility] 04-29-2024 09:05-0400 Systolic blood pressure 134 mm[Hg] Loreta [facility] 04-21-2024 14:24-0400 Body height 170.2 cm [facility] 04-21-2024 14:24-0400 Body mass index (BMI) [Ratio] 24.28 kg/m2 [facility] 04-21-2024 14:24-0400 Body weight 70.31 kg [facility] 04-14-2024 08:37-0400 Body height 170.2 cm Radha Bertrand MD Work Phone: [facility] 04-14-2024 08:37-0400 Body mass index (BMI) [Ratio] 24.28 kg/m2 Radha Bertrand MD Work Phone: [facility] 04-14-2024 08:37-0400 Body weight 70.31 kg Radha Bertrand MD Work Phone: [facility] 04-14-2024 08:37-0400 Diastolic blood pressure 80 mm[Hg] Radha Bertrand MD Work Phone: [facility] 04-14-2024 08:37-0400 Heart rate 95 /min Radha Bertrand MD Work Phone: [facility] 04-14-2024 08:37-0400 SaO2% (BldA) [Mass fraction] 99 % Radha Bertrand MD Work Phone: [facility] 04-14-2024 08:37-0400 Systolic blood pressure 162 mm[Hg] Radha Bertrand MD Work Phone: [facility] 03-17-2024 14:22-0400 Blood Pressure Location Marc Ornelasdarlin [...] 01-27-2024 09:42-0400 Blood Pressure Location Loreta Cummings [facility] 01-27-2024 09:42-0400 Body temperature 97.7 [degF] Loreta Cumm[facility] 01-27-2024 09:42-0400 Diastolic blood pressure 62 mm[Hg] oLreta [facility] 01-27-2024 09:42-0400 Heart rate 72 /min Loreta Cummings [facility] 01-27-2024 09:42-0400 Respiratory rate 14 /min Loreta Cummings [facility] 01-27-2024 09:42-0400 SaO2% (BldA) [Mass fraction] 99 % Loreta [facility] 01-27-2024 09:42-0400 Systolic blood pressure 130 mm[Hg] Loreta Cumm[facility] 12-23-2023 10:57-0400 Blood Pressure Location Loreta Cummings [facility] 12-23-2023 10:57-0400 Body temperature 97.7 [degF] Loreta [facility] 12-23-2023 10:57-0400 Diastolic blood pressure 62 mm[Hg] Loreta [facility] 12-23-2023 10:57-0400 Heart rate 76 /min Loreta Cumm[facility] 12-23-2023 10:57-0400 Respiratory rate 16 /min Loreta Cummings [facility] 12-23-2023 10:57-0400 SaO2% (BldA) [Mass fraction] 100 % Loreta [facility] 12-23-2023 10:57-0400 Systolic blood pressure 132 mm[Hg] Loreta Cummings [facility] 12-13-2023 11:54-0400 [facility] 12-13-2023 11:54-0400 Promise [facility] 12-13-2023 11:12-0400 Heart rate 81 /min [facility] 12-13-2023 11:12-0400 SaO2% (BldA) [Mass fraction] 100 % [facility] 12-13-2023 11:11-0400 Diastolic blood pressure 75 mm[Hg] [facility]d [facility] 12-13-2023 11:11-0400 Mean blood pressure 93 mm[Hg] [facility] 12-13-2023 11:11-0400 Systolic blood pressure 128 mm[Hg] [facility] 12-13-2023 11:11-0400 Body temperature 97.88 [degF] [facility] 12-13-2023 10:31-0400 [facility] 12-13-2023 10:31-0400 Promise [facility] Return [facility] 12-13-2023 09:26-0400 [facility]ly [facility]ing [facility] 12-13-2023 09:26-0400 [facility] 12-13-2023 07:12-0400 Heart rate 87 /min [facility] 12-13-2023 07:12-0400 SaO2% (BldA) [Mass fraction] 100 % [facility] 12-13-2023 07:11-0400 Diastolic blood pressure 68 mm[Hg] [facility] 12-13-2023 07:11-0400 Mean blood pressure 85 mm[Hg] [facility] 12-13-2023 07:11-0400 Systolic blood pressure 119 mm[Hg] [facility] 12-13-2023 07:11-0400 Body temperature 98.96 [degF] [facility] 12-13-2023 00:49-0400 Blood [facility] 12-13-2023 00:49-0400 Body temperature 98.78 [degF] [facility] 12-13-2023 00:49-0400 Diastolic blood pressure 73 mm[Hg] [facility] 12-13-2023 00:49-0400 Heart rate 100 /min [facility] 12-13-2023 00:49-0400 Mean blood pressure 95 mm[Hg] [facility] 12-13-2023 00:49-0400 Systolic blood pressure 138 mm[Hg] Ahmad [facility] 12-12-2023 20:21-0400 Mean blood pressure 84 mm[Hg] [facility] 12-12-2023 04:00-0400 Mean blood pressure 86 mm[Hg] [facility] 12-12-2023 04:00-0400 Respiratory rate 16 /min mad [facility] 12-11-2023 23:41-0400 Blood Pressure Location [facility] 12-11-2023 23:41-0400 Mean blood pressure 81 mm[Hg] [facility] 12-11-2023 14:17-0400 Body temperature 98.06 [degF] [facility] 12-11-2023 14:17-0400 Heart rate 66 /min mad [facility] 12-11-2023 14:04-0400 Respiratory rate 18 /min mad [facility] 12-11-2023 13:30-0400 Respiratory rate 18 /min mad [facility] 12-11-2023 09:08-0400 Body temperature 97.7 [degF] [facility] 12-11-2023 09:08-0400 Heart rate 76 /min [facility] 11-11-2023 16:50-0500 Blood Pressure Location Mario Evans [...] 10-28-2023 09:31-0500 Blood Pressure Location [facility] 10-28-2023 09:31-0500 Body temperature 97.88 [degF] [facility] 10-28-2023 09:31-0500 Diastolic blood pressure 70 mm[Hg] [facility] 10-28-2023 09:31-0500 Heart rate 76 /min [facility] 10-28-2023 09:31-0500 Respiratory rate 16 /min [facility] 10-28-2023 09:31-0500 SaO2% (BldA) [Mass fraction] 100 % [facility] 10-28-2023 09:31-0500 Systolic blood pressure 130 mm[Hg] Loreta Cummings [facility] 09-21-2023 14:24-0500 Blood Pressure Location Keith Patricia [facility] 09-21-2023 14:24-0500 Body temperature 98.06 [degF] Keith Patricia [facility] 09-21-2023 14:24-0500 Diastolic blood pressure 78 mm[Hg] Keith Patricia [facility] 09-21-2023 14:24-0500 Heart rate 73 /min Keith Patricia [facility] 09-21-2023 14:24-0500 Respiratory rate 18 /min Keith Patricia [facility] 09-21-2023 14:24-0500 SaO2% (BldA) [Mass fraction] 99 % Keith Patricia [facility] 09-21-2023 14:24-0500 Systolic blood pressure 156 mm[Hg] Keith Harshad [facility] 09-01-2023 12:16-0500 Diastolic blood pressure 80 mm[Hg] Martin Sarmini [facility] 09-01-2023 12:16-0500 Mean blood pressure 100 mm[Hg] Martin Sarmini [facility] 09-01-2023 12:16-0500 Systolic blood pressure 140 mm[Hg] Martin Sarmini [facility] 09-01-2023 12:12-0500 Blood Pressure Location Martin Sarmini [facility] 09-01-2023 12:12-0500 Diastolic blood pressure 82 mm[Hg] Martin Sarmini [facility] 09-01-2023 12:12-0500 Heart rate 80 /min Martin Sarmini [facility] 09-01-2023 12:12-0500 Respiratory rate 18 /min Martin Sarmini [facility] 09-01-2023 12:12-0500 Systolic blood pressure 142 mm[Hg] Mario Evans [facility] 08-26-2023 09:34-0500 Blood Pressure Location Loreta Cummings [facility] 08-26-2023 09:34-0500 Diastolic blood pressure 88 mm[Hg] Loreta Cummings [facility] 08-26-2023 09:34-0500 Heart rate 71 /min [facility] 08-26-2023 09:34-0500 Respiratory rate 18 /min Loreta Cummings [facility] 08-26-2023 09:34-0500 SaO2% (BldA) [Mass fraction] 100 % Loreta Cummings [facility] 08-26-2023 09:34-0500 Systolic blood pressure 150 mm[Hg] [facility] 07-24-2023 07:37-0500 Blood Pressure Location Loreta Cummings [facility] 07-24-2023 07:37-0500 Diastolic blood pressure 76 mm[Hg] Loreta Cummings [facility] 07-24-2023 07:37-0500 Heart rate 79 /min [facility] 07-24-2023 07:37-0500 Respiratory rate 16 /min Loreta Cummings [facility] 07-24-2023 07:37-0500 SaO2% (BldA) [Mass fraction] 100 % Loreta John [facility] 07-24-2023 07:37-0500 Systolic blood pressure 132 mm[Hg] Loreta Cummings [facility] 06-19-2023 12:23-0400 Body [...] Body height 170.18 cm Jarrod Eddy Other [employer] [facility] [employer] Other 04-24-2023 11:00-0400 Body mass index (BMI) [Ratio] 26.94 kg/m2 Jarrod Eddy Other [employer] Other 04-24-2023 11:00-0400 Body temperature 97.4 [degF] Jarrod Eddy Other [employer] Other 04-24-2023 11:00-0400 Body weight 78.02 kg Jarrod Eddy Other [employer] Other 04-24-2023 11:00-0400 Diastolic blood pressure 70 mm[Hg] Jarrod Eddy Other [employer] Other 04-24-2023 11:00-0400 SaO2% (BldA) [Mass fraction] 99 % Jarrod Eddy Other [employer] Other 04-24-2023 11:00-0400 Systolic blood pressure 138 mm[Hg] Jarrod Dillarddanish Other [employer] Other 04-21-2023 09:38-0400 Body height 170.2 cm Tanvir Black MD Work Phone: [email or web address] 04-21-2023 09:38-0400 Body mass index (BMI) [Ratio] 27.08 kg/m2 Tanvir Black MD Work Phone: [email or web address] 04-21-2023 09:38-0400 Body temperature 97.7 [degF] Tanvir Black MD Work Phone: [email or web address] 04-21-2023 09:38-0400 Body weight 78.43 kg Tanvir Black MD Work Phone: [email or web address] 04-21-2023 09:38-0400 Diastolic blood pressure 67 mm[Hg] Tanvir Black MD Work Phone: [email or web address] 04-21-2023 09:38-0400 Heart rate 79 /min Tanvir Black MD Work Phone: [email or web address] 04-21-2023 09:38-0400 Respiratory rate 20 /min Tanvir Black MD Work Phone: [email or web address] 04-21-2023 09:38-0400 SaO2% (BldA) [Mass fraction] 100 % Tanvir Black MD Work Phone: [facility] 04-21-2023 09:38-0400 Systolic blood pressure 136 mm[Hg] Tanvir Paul MULTANI Work Phone: [facility] 03-22-2023 21:05-0400 Diastolic blood pressure 80 [...] 12:00-0400 Diastolic blood pressure 71 mm[Hg] 1 [facility] 01-20-2023 12:00-0400 Heart rate 78 /min 1 [facility] 01-20-2023 12:00-0400 Respiratory rate 16 /min 1 [facility] 01-20-2023 12:00-0400 SaO2% (BldA) [Mass fraction] 94 % 1 [facility] 01-20-2023 12:00-0400 Systolic blood pressure 118 mm[Hg] 1 [facility] 01-20-2023 07:30-0400 Body temperature 98.71 [degF] 1 [facility] 01-12-2023 09:49-0400 Body height 170.2 cm [facility] 01-12-2023 09:49-0400 Body mass index (BMI) [Ratio] 27.28 kg/m2 Tanvir Black MD Work Phone: [email or web address] 01-12-2023 09:49-0400 Body temperature 96.6 [degF] Tanvir Black MD Work Phone: [email or web address] 01-12-2023 09:49-0400 Body weight 79.02 kg Tan[facility] Black [facility] 01-12-2023 09:49-0400 Diastolic blood pressure 56 mm[Hg] Tanvir Black MD Work Phone: [email or web address] 01-12-2023 09:49-0400 Heart rate 79 /min Tanvir Black MD Work Phone: [email or web address] 01-12-2023 09:49-0400 Respiratory rate 20 /min Tanvir Black MD Work Phone: [email or web address] 01-12-2023 09:49-0400 SaO2% (BldA) [Mass fraction] 100 % Tanvir Black MD Work Phone: [email or web address] 01-12-2023 09:49-0400 Systolic blood pressure 121 mm[Hg] Tan[facility] Black [facility] 01-12-2023 08:58-0400 Body mass index (BMI) [Ratio] 27.41 kg/m2 Marcello Ibanez MD Work Phone: [email or web address] 01-12-2023 08:58-0400 Body temperature 96.6 [degF] Marcello Ibanez MD Work Phone: [email or web address] 01-12-2023 08:58-0400 Body weight 79.38 kg Marcello Ibanez MD Work Phone: [email or web address] 01-12-2023 08:58-0400 Diastolic blood pressure 56 mm[Hg] Marcello Ibanez MD Work Phone: [email or web address] 01-12-2023 08:58-0400 Heart rate 79 /min Marcello Ibanez MD Work Phone: [email or web address] 01-12-2023 08:58-0400 Systolic blood pressure 121 mm[Hg] Marcello Ibanez MD Work Phone: [email or web address] 12-16-2022 09:49-0400 Body height 170.2 cm Dejuan Lechuga [facility] 12-16-2022 09:49-0400 Body mass index (BMI) [Ratio] 28.05 kg/m2 Dejuan Lechuga MD Work Phone: [email or web address] 12-16-2022 09:49-0400 Body weight 81.24 kg Dejuan Lechuga MD Work Phone: [email or web address] 12-16-2022 09:49-0400 Diastolic blood pressure 57 mm[Hg] Dejuan Lechuga MD Work Phone: [email or web address] 12-16-2022 09:49-0400 Heart rate 85 /min Dejuan Lechuga MD Work Phone: [email or web address] 12-16-2022 09:49-0400 SaO2% (BldA) [Mass fraction] 100 % Dejuan Lechuga MD Work Phone: [email or web address] 12-16-2022 09:49-0400 Systolic blood pressure 113 mm[Hg] Dejuan Lechuga MD Work Phone: [email or web address] 11-13-2022 11:23-0500 Body mass index (BMI) [Ratio] 26.63 kg/m2 Tanvir Black MD Work Phone: [email or web address] 11-13-2022 11:23-0500 Body temperature 98.6 [degF] Tanvir Blcak MD Work Phone: [email or web address] 11-13-2022 11:23-0500 Body weight 77.11 kg Tanvir Black MD Work Phone: [email or web address] 11-13-2022 11:23-0500 Diastolic blood pressure 62 mm[Hg] Tanvir Black MD Work Phone: [email or web address] 11-13-2022 11:23-0500 Heart rate 86 /min Tanvir Black MD Work Phone: [email or web address] 11-13-2022 11:23-0500 Respiratory rate 14 /min Tanvir Black MD Work Phone: [email or web address] 11-13-2022 11:23-0500 SaO2% (BldA) [Mass fraction] 100 % Tanvir Black MD Work Phone: [email or web address] 11-13-2022 11:23-0500 Systolic blood pressure 153 mm[Hg] Tanvir Black MD Work Phone: [email or web address] 10-27-2022 09:49-0500 Body mass index (BMI) [Ratio] 26.59 kg/m2 Marcello Ibanez MD Work Phone: [email or web address] 10-27-2022 09:49-0500 Body temperature 97.5 [degF] Marcello Ibanez MD Work Phone: [email or web address] 10-27-2022 09:49-0500 Body weight 77.02 kg Marcello Ibanez MD Work Phone: [email or web address] 10-27-2022 09:49-0500 Diastolic blood pressure 55 mm[Hg] Marcello Ibanez MD Work Phone: [email or web address] 10-27-2022 09:49-0500 Heart rate 84 /min Marcello Ibanez MD Work Phone: [email or web address] 10-27-2022 09:49-0500 SaO2% (BldA) [Mass fraction] 100 % Marcello Ibanez MD Work Phone: [email or web address] 10-27-2022 09:49-0500 Systolic blood pressure 128 mm[Hg] Marcello Ibanez MD Work Phone: [email or web address] 08-25-2022 13:44-0500 Body mass index (BMI) [Ratio] 26.78 kg/m2 Theo Burks MD Work Phone: [email or web address] 08-25-2022 13:44-0500 Body temperature 98.49 [degF] Theo Burks MD Work Phone: [email or web address] 08-25-2022 13:44-0500 Body weight 77.56 kg Theo Burks MD Work Phone: [email or web address] 08-25-2022 13:44-0500 Diastolic blood pressure 65 mm[Hg] Theo Burks MD Work Phone: [email or web address] 08-25-2022 13:44-0500 Heart rate 69 /min Theo Burks MD Work Phone: [email or web address] 08-25-2022 13:44-0500 Respiratory rate 18 /min Theo uBrks MD Work Phone: [email or web address] 08-25-2022 13:44-0500 SaO2% (BldA) [Mass fraction] 99 % Theo Burks MD Work Phone: [email or web address] 08-25-2022 13:44-0500 Systolic blood pressure 132 mm[Hg] Theo Burks MD Work Phone: [email or web address] 08-25-2022 10:42-0500 Body mass index (BMI) [Ratio] 26.94 kg/m2 Abbey Alvarez MD Work Phone: [email or web address] 08-25-2022 10:42-0500 Body temperature 98.2 [degF] Abbey Alvarez MD Work Phone: [email or web address] 08-25-2022 10:42-0500 Body weight 78.02 kg Abbey Alvarez MD Work Phone: [email or web address] 08-25-2022 10:42-0500 Diastolic blood pressure 50 mm[Hg] Abbey Alvarez MD Work Phone: [email or web address] 08-25-2022 10:42-0500 Heart rate 82 /min Abbey Alvarez MD Work Phone: [email or web address] 08-25-2022 10:42-0500 Systolic blood pressure 129 mm[Hg] Abbey Alvarez MD Work Phone: [email or web address] 08-15-2022 15:50-0500 Heart rate 78 /min Ann-Marie Bonner MD Work Phone: [email or web address] 08-15-2022 15:50-0500 Respiratory rate 14 /min Ann-Marie Bonner MD Work Phone: [email or web address] 08-15-2022 15:50-0500 SaO2% (BldA) [Mass fraction] 98 % Ann-Marie Bonner MD Work Phone: [email or web address] 08-15-2022 12:51-0500 Body mass index (BMI) [Ratio] 20.52 kg/m2 Ann-Marie Bonner MD Work Phone: [email or web address] 08-15-2022 12:51-0500 Body temperature 98.49 [degF] Ann-Marie Bonner MD Work Phone: [email or web address] 08-15-2022 12:51-0500 Body weight 59.42 kg Ann-Marie Bonner MD Work Phone: [email or web address] 08-15-2022 12:51-0500 Diastolic blood pressure 70 mm[Hg] Ann-Marie Bonner MD Work Phone: [email or web address] 08-15-2022 12:51-0500 Systolic blood pressure 147 mm[Hg] Ann-Marie Bonner MD Work Phone: [email or web address] 08-15-2022 10:16-0500 Body mass index (BMI) [Ratio] 26.72 kg/m2 Nenita Franco MD Work Phone: [email or web address] 08-15-2022 10:16-0500 Body temperature 98.6 [degF] Nenita Franco MD Work Phone: [email or web address] 08-15-2022 10:16-0500 Body weight 77.38 kg Nenita Franco MD Work Phone: [email or web address] 08-15-2022 10:16-0500 Diastolic blood pressure 56 mm[Hg] Nenita Franco MD Work Phone: [email or web address] 08-15-2022 10:16-0500 Heart rate 85 /min Nenita Franco MD Work Phone: [email or web address] 08-15-2022 10:16-0500 Respiratory rate 18 /min Nenita Franco MD Work Phone: [email or web address] 08-15-2022 10:16-0500 SaO2% (BldA) [Mass fraction] 100 % Nenita Franco MD Work Phone: [email or web address] 08-15-2022 10:16-0500 Systolic blood pressure 136 mm[Hg] Nenita Franco MD Work Phone: [email or web address] 08-14-2022 13:12-0500 Diastolic blood pressure 60 mm[Hg] Saskia Madison APRN-MERCHANDISE HANDLER [facility] 08-14-2022 13:12-0500 Systolic blood pressure 128 mm[Hg] Saskia Madison APRN-MERCHANDISE HANDLER [facility] 08-14-2022 13:10-0500 Body mass index (BMI) [Ratio] 27.1 kg/m2 Saskia Madison APRN-MERCHANDISE HANDLER [facility] 08-14-2022 13:10-0500 Body temperature 98.2 [degF] Saskia Madison APRN-MERCHANDISE HANDLER [facility]: [facility] 08-14-2022 13:10-0500 Body weight 78.47 kg Saskia aMdison APRN-MERCHANDISE HANDLER [facility]: [facility] 08-14-2022 13:10-0500 Heart rate 84 /min Saskia Madison APRN-MERCHANDISE HANDLER [facility] 08-14-2022 11:51-0500 Body height 170.2 cm Tanvir Black MD Work Phone: [email or web address] 08-14-2022 11:51-0500 Body mass index (BMI) [Ratio] 26.78 kg/m2 Tanvir Black MD Work Phone: [email or web address] 08-14-2022 11:51-0500 Body temperature 99.19 [degF] Tanvir Black MD Work Phone: [email or web address] 08-14-2022 11:51-0500 Body weight 77.56 kg Tanvir Black MD Work Phone: [email or web address] 08-14-2022 11:51-0500 Diastolic blood pressure 60 mm[Hg] Tanvir Black MD Work Phone: [email or web address] 08-14-2022 11:51-0500 Heart rate 90 /min Tanvir Black MD Work Phone: [email or web address] 08-14-2022 11:51-0500 Respiratory rate 14 /min Tanvir Black MD Work Phone: [email or web address] 08-14-2022 11:51-0500 SaO2% (BldA) [Mass fraction] 100 % Tanvir Black MD Work Phone: [email or web address] 08-14-2022 11:51-0500 Systolic blood pressure 141 mm[Hg] Tanvir Black MD Work Phone: [email or web address] 05-06-2022 10:03-0400 Body height 170.2 cm Tanvir Black MD Work Phone: [email or web address] 05-06-2022 10:03-0400 Body mass index (BMI) [Ratio] 26.78 kg/m2 Tanvir Black MD Work Phone: [email or web address] 05-06-2022 10:03-0400 Body temperature 98.4 [degF] Tanvir Black MD Work Phone: [email or web address] 05-06-2022 10:03-0400 Body weight 77.56 kg Tanvir Black MD Work Phone: [email or web address] 05-06-2022 10:03-0400 Diastolic blood pressure 70 mm[Hg] Tanvir Black MD Work Phone: [email or web address] 05-06-2022 10:03-0400 Heart rate 75 /min Tanvir Black MD Work Phone: [email or web address] 05-06-2022 10:03-0400 Respiratory rate 16 /min Tanvir Black MD Work Phone: [email or web address] 05-06-2022 10:03-0400 SaO2% (BldA) [Mass fraction] 100 % Tanvir Black MD Work Phone: [email or web address] 05-06-2022 10:03-0400 Systolic blood pressure 137 mm[Hg] Tanvir Black MD Work Phone: [email or web address] 03-13-2022 11:39-0400 Body mass index (BMI) [Ratio] 25.84 kg/m2 Tanvir Black MD Work Phone: [email or web address] 03-13-2022 11:39-0400 Body temperature 98.49 [degF] Tanvir Black MD Work Phone: [email or web address] 03-13-2022 11:39-0400 Body weight 74.84 kg Tanvir Black MD Work Phone: [email or web address] 03-13-2022 11:39-0400 Diastolic blood pressure 69 mm[Hg] Tanvir Black MD Work Phone: [email or web address] 03-13-2022 11:39-0400 Heart rate 85 /min Tanvir Black MD Work Phone: [email or web address] 03-13-2022 11:39-0400 Respiratory rate 14 /min Tanvir Black MD Work Phone: [email or web address] 03-13-2022 11:39-0400 SaO2% (BldA) [Mass fraction] 100 % Tan[facility] Black [facility] 03-13-2022 11:39-0400 Systolic blood pressure 137 mm[Hg] Tanvir Black MD Work Phone: [facility] 02-17-2022 16:07-0400 Diastolic blood pressure 76 mm[Hg] [facility] 02-17-2022 16:07-0400 Heart rate 84 /min [facility] 02-17-2022 16:07-0400 Mean blood pressure 94 mm[Hg] [facility] 02-17-2022 16:07-0400 Respiratory rate 18 /min [facility] 02-17-2022 16:07-0400 SaO2% (BldA) [Mass fraction] 98 % [facility] 02-17-2022 16:07-0400 Systolic blood pressure 129 mm[Hg] [facility] 02-17-2022 15:18-0400 Diastolic blood pressure 75 mm[Hg] [facility] 02-17-2022 15:18-0400 Heart rate 79 /min [facility] 02-17-2022 15:18-0400 Mean blood pressure 92 mm[Hg] [facility] 02-17-2022 15:18-0400 Respiratory rate 16 /min [facility] 02-17-2022 15:18-0400 SaO2% (BldA) [Mass fraction] 99 % [facility] 02-17-2022 15:18-0400 Systolic blood pressure 126 mm[Hg] [facility] 02-17-2022 14:58-0400 Diastolic blood pressure 76 mm[Hg] [facility] 02-17-2022 14:58-0400 Heart rate 79 /min [facility] 02-17-2022 14:58-0400 Mean blood pressure 99 mm[Hg] [facility] 02-17-2022 14:58-0400 Respiratory rate 18 /min [facility] 02-17-2022 14:58-0400 SaO2% (BldA) [Mass fraction] 100 % [facility] 02-17-2022 14:58-0400 Systolic blood pressure 144 mm[Hg] [facility] 02-17-2022 12:30-0400 Body temperature 98.24 [degF] [facility] 02-17-2022 12:30-0400 Heart rate 101 /min [facility] 02-17-2022 12:30-0400 Respiratory rate 18 /min [facility] 02-11-2022 10:22-0400 Body height 170.2 cm Tanvir Black MD Work Phone: [facility] 02-11-2022 10:22-0400 Body mass index (BMI) [Ratio] 26.16 kg/m2 Tanvir Black MD Work Phone: [facility] 02-11-2022 10:22-0400 Body temperature 98.2 [degF] Tanvir Black MD Work Phone: [email or web address] 02-11-2022 10:22-0400 Body weight 75.75 kg Tanvir Black MD Work Phone: [email or web address] 02-11-2022 10:22-0400 Diastolic blood pressure 81 mm[Hg] Tanvir Black MD Work Phone: [email or web address] 02-11-2022 10:22-0400 Heart rate 103 /min Tanvir Black MD Work Phone: [email or web address] 02-11-2022 10:22-0400 Respiratory rate 16 /min Tanvir Black MD Work Phone: [email or web address] 02-11-2022 10:22-0400 SaO2% (BldA) [Mass fraction] 100 % Tanvir Black MD Work Phone: [email or web address] 02-11-2022 10:22-0400 Systolic blood pressure 157 mm[Hg] Tanvir Black MD Work Phone: [email or web address] 01-17-2022 14:20-0400 Body temperature 98.29 [degF] Francisco Marino MD Work Phone: [email or web address] 01-17-2022 14:20-0400 Diastolic blood pressure 56 mm[Hg] Francisco Marino MD Work Phone: [email or web address] 01-17-2022 14:20-0400 Heart rate 83 /min Francisco Marino MD Work Phone: [email or web address] 01-17-2022 14:20-0400 Respiratory rate 18 /min Francisco Marino MD Work Phone: [email or web address] 01-17-2022 14:20-0400 SaO2% (BldA) [Mass fraction] 100 % Francisco Marino MD Work Phone: [email or web address] 01-17-2022 14:20-0400 Systolic blood pressure 125 mm[Hg] Francisco Marino MD Work Phone: [email or web address] 01-17-2022 06:00-0400 Body mass index (BMI) [Ratio] 22.77 kg/m2 Francisco [facility] 01-17-2022 06:00-0400 Body weight 65.95 kg Francisco [facility] 01-10-2022 18:36-0400 Heart rate 96 /min Francisco [facility]ino [facility] 01-08-2022 21:47-0400 Heart rate 76 /min Francisco [facility] 01-08-2022 14:00-0400 Hourly Rounding Aldair Ila [facility] 01-08-2022 14:00-0400 Promise to Return Aldair Ila [facility] 01-08-2022 14:00-0400 SaO2% (BldA) [Mass fraction] 100 % Aldair Ila [facility] 01-08-2022 08:00-0400 Body height 170.2 cm Francisco Marino MD Work Phone: [facility] 01-08-2022 05:00-0400 Diastolic blood pressure 70 [...] Hospital 01-07-2022 14:32-0400 Heart rate 117 /min [facility] Ila [facility] Encounters Encounter [...] Start: 01-12-2025 End: 01-12-2025 ambulatory Vic [place] [place]: 01-12-2025 End: 01-12-2025 Patient encounter procedure Evelio Carr [facility] Start: 01-03-2025 End: 01-03-2025 ambulatory Evelio Carr [place] [place]: 01-03-2025 End: 01-03-2025 Pain Management Evelio Carr [facility] Start: 12-21-2024 End: 12-21-2024 ambulatory Vic Ramos Facility:[facility] Start: 12-20-2024 End: 12-20-2024 ambulatory Vic Ramos [place] [place]: 12-20-2024 End: 12-20-2024 Patient encounter procedure Sadie Loco [facility] Start: 11-28-2024 End: 11-29-2024 ambulatory Sadie Loco [place] [place]: 11-28-2024 End: 11-29-2024 Patient encounter procedure Sadie Loco [facility] Start: 11-21-2024 End: 11-21-2024 ambulatory Sadie Loco [place] [place]: 11-21-2024 End: 11-21-2024 Patient encounter procedure Sadie Loco [facility] Start: 11-21-2024 End: 11-21-2024 ambulatory Mario Evans Facility:[facility] [place] Start: 11-21-2024 End: 11-21-2024 Patient encounter procedure Sadie Olco [facility] Start: 11-18-2024 End: 11-18-2024 Patient encounter procedure Keith Patricia [facility] Start: 11-18-2024 End: 11-18-2024 ambulatory Keith Patricia [place] [place]: 11-18-2024 End: 11-18-2024 ambulatory Mario Marreroi [place] [place]: 11-18-2024 End: 11-18-2024 Patient encounter procedure Mario Evans [facility] Start: 11-11-2024 End: 11-11-2024 ambulatory Mario Marreroi [place] [place]: 11-09-2024 End: 11-09-2024 ambulatory Evelio CarmelinaSarha Carr [place] [place]: 11-09-2024 End: 11-09-2024 Patient encounter procedure Evelio Carr [facility] Start: 10-26-2024 End: 10-26-2024 ambulatory Evelio Carr [place] [place]: 10-26-2024 End: 10-26-2024 Patient encounter procedure Evelio Carr [facility] Start: 10-05-2024 End: 10-05-2024 ambulatory Vic Ramos Facility:[facility] Start: 10-05-2024 End: 10-05-2024 Patient encounter procedure Vic Ramos [employer] Start: 09-29-2024 End: 09-29-2024 ambulatory Kavon Lu [place] [place]: 09-29-2024 End: 09-29-2024 Patient encounter procedure Kavon Lu [facility] Start: 09-16-2024 End: 09-16-2024 ambulatory Kavon Lu [place] [place]: 09-16-2024 End: 09-16-2024 Patient encounter procedure Kavon Lu [facility] Start: 08-19-2024 End: 08-19-2024 ambulatory Loreta Cummings Facility:[facility] Start: 08-19-2024 End: 08-19-2024 Patient encounter procedure Loreta Cummings [facility] Start: 08-11-2024 End: 08-11-2024 ambulatory Kavon Lu [place] [place]: 08-11-2024 End: 08-11-2024 Patient encounter procedure Kavon Lu [facility] Start: 07-09-2024 End: 07-09-2024 ambulatory Kavon Lu [place] [place]: 07-09-2024 End: 07-09-2024 Patient encounter procedure Kavon Lu [facility] Start: 06-09-2024 End: 06-09-2024 ambulatory Martin Talal Sarmini Facility:[facility] Start: 06-09-2024 End: 06-09-2024 Patient encounter procedure Martin Talal Sarmini [facility] Start: 05-24-2024 End: 05-24-2024 ambulatory Martin Talal Sarmini [place] [place]: 05-24-2024 End: 05-24-2024 Patient encounter procedure Martin Talal Sarmini [facility] Start: 05-20-2024 ambulatory Loreta Cummings Facil ity:[facility] Start: 05-12-2024 End: 05-12-2024 ambulatory Martin Talal Sarmini Facility:[facility] Start: 05-12-2024 End: 05-12-2024 Patient encounter procedure Martin Talal Sarmini [facility] Start: 05-12-2024 End: 05-12-2024 Office outpatient visit 15 minutes Radha Bertrand MD Work Phone: [facility] Comment on above: Lymphedema (Primary Dx) Start: 05-11-2024 End: 05-11-2024 ambulatory Ella Gonzales [place] Start: 05-11-2024 End: 05-11-2024 Patient encounter procedure Kavon Lu [facility] Start: 05-06-2024 End: 05-06-2024 ambulatory Kavon Lu [place] Start: 05-06-2024 End: 05-06-2024 Patient encounter procedure Kavon Lu [facility] Start: 04-29-2024 End: 04-29-2024 ambulatory Loreta Cummings Facility:[facility] Start: 04-29-2024 End: 04-29-2024 Patient encounter procedure Loreta Cummings [facility] Start: 04-27-2024 End: 04-27-2024 Evaluation and management of inpatient [facility] Start: 04-26-2024 End: 04-27-2024 [facility] Start: 04-26-2024 End: 04-26-2024 Evaluation and management of inpatient [facility] Start: 04-21-2024 End: 04-21-2024 Admission to [facility] Phone Call Provider 2 [facility] Start: 04-21-2024 End: 04-21-2024 Evaluation and management of inpatient LORETA CUMMINGS [facility] Start: 04-15-2024 ambulatory Loreta Cummings Facil [facility] Start: 04-14-2024 End: 04-14-2024 Orders Only [...] Start: 04-05-2024 End: 04-29-2024 ambulatory Loreta Cummings Facility::[id number] Start: 03-17-2024 End: 03-17-2024 ambulatory Loreta Cummings [place] Start: 03-17-2024 End: 03-17-2024 Patient encounter procedure Marc Liz [facility] Start: 03-14-2024 End: 03-14-2024 ambulatory [facility] Ella Crainstefany Facility[place] Start: 03-14-2024 End: 03-14-2024 Patient encounter procedure Ella Crainstefany [facility] Start: 03-02-2024 End: 03-02-2024 ambulatory Ella Crainsharadarcy Facility[place] Start: 03-02-2024 End: 03-02-2024 Patient encounter procedure Ella Crainstefany [facility] Start: 02-25-2024 End: 02-25-2024 ambulatory Loreta Cummings [facility] Start: 02-25-2024 End: 02-25-2024 Patient encounter procedure Ella Crainsharadarcy [facility] Start: 02-20-2024 End: 02-20-2024 ambulatory [facility] Ella Crainsharadarcy Facility[place] Start: 02-20-2024 End: 02-20-2024 Patient encounter procedure Ella Gonzales [facility] Start: 02-06-2024 End: 02-08-2024 Refill Marcello Ibanez MD Work Phone: [facility] Comment on above: Refill Start: 01-27-2024 End: 01-27-2024 ambulatory Loreta Cummings Facility:[facility] Start: 01-27-2024 End: 01-27-2024 Patient encounter procedure Loreta Cummings [facility] Start: 12-31-2023 End: 12-31-2023 ambulatory Loreta Cummings Facility[place] Start: 12-31-2023 End: 12-31-2023 Patient encounter procedure Loreta Cummings [facility] Start: 12-30-2023 End: 12-30-2023 ambulatory JOSIANE MCCULLOUGH Facility:[facility] Start: 12-30-2023 End: 12-30-2023 Patient encounter procedure Margaret Zuñiga MD Work Phone: General Surgery Comment on above: Gallstones (Primary Dx) Start: 12-23-2023 End: 12-23-2023 ambulatory Loreta Cummings Facility:[facility] Start: 12-23-2023 End: 12-23-2023 Patient encounter procedure Loreta Cummings [facility] Start: 12-21-2023 End: 12-21-2023 ambulatory Loreta Cummings [facility] Start: 12-21-2023 End: 12-21-2023 Patient encounter procedure Loreta Cummings [facility] Start: 12-14-2023 End: 01-13-2024 ambulatory Loreta Cummings Facility:CD:[id number] Start: 12-11-2023 End: 12-13-2023 Observation Desi Mena 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) Start: 10-01-2023 End: 10-01-2023 Patient encounter procedure Loreta Cummings [facility] Start: 10-01-2023 End: 10-01-2023 ambulatory THEO BURKS Facility:[facility] Start: 09-27-2023 Letter encounter Theo bright MD Work Phone: [facility] Start: 09-21-2023 End: 09-21-2023 Patient encounter procedure Keith Patricia [facility] Start: 09-03-2023 End: 09-03-2023 Patient encounter procedure Mario Xiong Sarmini [facility] Start: 09-01-2023 End: 09-01-2023 Patient encounter procedure Mario Evans [facility] Start: 08-26-2023 End: 08-26-2023 Patient encounter procedure Loreta Cummings [facility] Start: 08-25-2023 Refill Tanvir Black MD Work Phone: [facility] Comment on above: Refill Start: 08-06-2023 End: 08-06-2023 Patient encounter procedure Teddy Hitchcock [facility] Start: 08-03-2023 End: 11-01-2023 Recurring Loreta Cummings [facility] Start: 07-24-2023 End: 07-24-2023 Lab Drop off Loreta Cummings [facility] Start: 07-24-2023 End: 07-24-2023 Patient encounter procedure Loreta Cummings [facility] Start: 07-23-2023 End: 07-23-2023 Patient encounter procedure Teddy Hitchcock [facility] Start: 07-20-2023 E-mail encounter fro m caregiver Tanvir Black MD Work Phone: [facility] Start: 07-20-2023 Patient encounter procedure [facility] Black MD [facility] Phone: [facility] Comment on above: Had to reschedule ap pointment Start: 07-16-2023 End: 07-16-2023 Patient encounter procedure Teddy Hitchcock [facility] Start: 07-13-2023 Refill Marcello Ibanez MD Work Phone: [facility] Comment on above: Refill Start: 07-11-2023 Refill Tanvir Black MD Work Phone: [facility] Comment on above: Refill [...] 04-24-2023 End: 04-24-2023 ambulatory Jarrod Eddy Other [facility] Other Start: 04-24-2023 Office outpatient ne w 45 minutes Jarrod Eddy [facility] V[facility] Surgery Start: 04-24-2023 Refill Tanvir Black MD Work Phone: [facility] Comment on above: Refill Start: 04-23-2023 End: 04-23-2023 Patient encounter procedure Teddy Hitchcock [facility] Start: 04-22-2023 ambulatory Tanvir Black MD Work Phone: [facility] Comment on above: lab results Start: 04-22-2023 E-mail encounter fro m caregiver Tanvir Black MD Work Phone: [facility] Start: 04-21-2023 End: 04-21-2023 Patient encounter status [facility]vir Black MD [facility] Start: 04-21-2023 End: 04-21-2023 Subsequent hospital visit [facility] Comment on above: Dx: [...] Letter encounter Tanvir Black MD Work Phone: [facility] Comment on above: Refill Start: 03-16-2023 End: 03-16-2023 Patient encounter procedure Teddy Hitchcock [facility] Start: 03-06-2023 Refill Theo wilder MD Work Phone: [facility] Comment on above: Refill Prior Authorization Start: 03-05-2023 End: 03-05-2023 Patient encounter procedure Teddy Hitchcock [facility] Start: 02-27-2023 Telephone encounter Nighat rai SAP BASIS ADMINISTRATOR-MERCHANDISE HANDLER Work Phone: [facility] Comment on above: Left Message To Call Back Start: 02-18-2023 End: 02-18-2023 Emergency department patient visit Brent Sanches [facility] Start: 02-09-2023 Refill Dejuan Lechuga MD Work Phone: [facility] Comment on above: Refill Start: 01-20-2023 End: 01-20-2023 Subsequent hospital visit by physician Ip/Op Angio 1 [facility] Radiology Comment on above: Coagulation defect ( HCC) (Primary Dx); Alcoholic fatty liver; Hyperbilirubinemia; Alcoholic hepatitis, unspecified whether ascites present Start: 01-12-2023 End: 01-12-2023 Subsequent hospital visit by physician Meka Lucas RN [facility] Comment on above: 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) Start: 01-12-2023 End: 01-12-2023 Office outpatient visit 25 minutes Marcello Ibanez MD Work Phone: [facility] Comment on above: Liver fibrosis (Prim tanner Dx); Alcohol use disorder in remission; Elevated liver enzymes; Jaundice; Body mass index (BMI) 27.0-27.9, adult Start: 12-20-2022 Letter encounter Theo bright MD Work Phone: [facility] Start: 12-16-2022 End: 12-16-2022 Office outpatient visit 15 minutes Dejuan Lechuga MD Work Phone: [facility] Comment on above: Rib pain (Primary Dx ); Alcoholic cirrhosis of liver without ascites (HCC); Body mass index (BMI) 28.0-28.9, adult Start: 12-15-2022 End: 12-15-2022 Phys/qhp telephone evaluation 11-20 min Theo Burks MD Work Phone: [facility] Comment on above: Rib pain (Primary Dx ) Start: 12-15-2022 Letter encounter Theo bright MD Work Phone: [facility] Start: 12-15-2022 Telephone encounter Theo Burks MD Work Phone: [facility] Start: 12-03-2022 Refill Marcello Ibanez MD Work Phone: [facility] Comment on above: Refill Start: 11-13-2022 End: 11-13-2022 Subsequent hospital visit by physician Tanvir Black MD Work Phone: [facility] Comment on above: 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9, adult Start: 10-01-2022 Refill Abbey Love Work Phone: [facility] Comment on above: Refill I have a few questio ns Start: 09-21-2022 Letter encounter Theo bright MD Work Phone: [facility] Start: 09-20-2022 Telephone encounter Tanika lange RN Work Phone: [facility] Line Comment on above: Cancel Appointment Start: 09-16-2022 Orders Only Saskia Gricelda SAP BASIS ADMINISTRATOR-MERCHANDISE HANDLER Work Phone: [facility] [place] [facility] Start: 09-15-2022 Orders Only Samantha tSauffer SAP BASIS ADMINISTRATOR-MERCHANDISE HANDLER Work Phone: [facility]astroenter[facility] Start: 08-29-2022 End: 08-29-2022 Phys/qhp telephone evaluation 5-10 min Theo Burks MD Work Phone: [facility] Comment on above: Cellulitis, unspecif ied cellulitis site (Primary Dx); Muscle soreness Start: 08-25-2022 End: 08-25-2022 Orders Only Abbey Alvarez MD Work Phone: [facility] Gastroenterology Comment on above: Arrived Start: 08-25-2022 End: 08-26-2022 Office outpatient visit 25 minutes Abbey Alvarez MD Work Phone: [facility] Comment on above: Alcoholic hepatitis [...] adult Start: 08-22-2022 ambulatory Jim Hill RN [facility]cology Medical Comment on above: internal med request Start: 08-22-2022 E-mail encounter giana m caregiver Jim Hill RN [facility] Start: 08-21-2022 Letter encounter Lorena Sparrow Ultrasound Start: 08-16-2022 Orders Only Tanvir Black MD Work Phone: [facility] Start: 08-15-2022 ambulatory Tanivr Black MD Work Phone: [facility] Comment on above: Severe pain Start: 08-15-2022 E-mail encounter giana maguire caregiver Tanvir Black MD Work Phone: [facility] Start: 08-15-2022 End: 08-15-2022 Emergency department patient visit Ann-Marie Bonner MD Work Phone: [facility] Emergency Medicine Comment on above: Leg/thigh symptoms ( Pt states has infection in R leg x 4 days, seen yesterday for same) Start: 08-15-2022 End: 08-15-2022 Office outpatient new 30 minutes Nenita Franco MD Work Phone: [facility] Comment on above: Cellulitis, unspecif ied cellulitis site (Primary Dx); Body mass index (BMI) 26.0-26.9, adult Start: 08-14-2022 Letter encounter [facility] Start: 08-14-2022 End: 08-14-2022 Office consultation new/estab patient 60 min Saskia SILVESTRE Work Phone: [facility] Comment on above: Alcoholic cirrhosis, unspecified whether ascites present (HCC) (Primary Dx); Iron deficiency anemia, unspecified iron deficiency anemia type; Alcoholic cirrhosis of liver without ascites (HCC); Body mass index (BMI) 27.0-27.9, adult Start: 08-14-2022 End: 08-14-2022 Subsequent hospital visit by physician Jasmyne Grimaldo RN [facility] Comment on above: Dx: Thrombocytopenia (HCC) (Primary Dx) Start: 08-14-2022 End: 08-14-2022 Office outpatient visit 40 minutes Tanvir Black MD Work Phone: [facility] Comment on above: 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) Start: 08-08-2022 ambulatory Tanvir Black MD Work Phone: [facility] Comment on above: Question Start: 08-08-2022 E-mail encounter giana m caregiver Tanvir Black MD Work Phone: [facility] Start: 05-06-2022 End: 05-06-2022 Office outpatient visit 40 minutes Tanvir Black MD Work Phone: [facility] Comment on above: 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 Cardiology Start: 03-13-[address] 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) Start: 02-17-2022 End: 02-17-2022 Emergency department patient visit Christi Luo [facility] Start: 02-11-2022 Telephone encounter Kulwinder Zimmerman kiel PharmD Work Phone: [facility] Comment on above: Specialty Pharmacy R eferral (MMF referral- no PA needed ) Start: 02-11-2022 End: 02-11-2022 Office outpatient visit 5 minutes Cyn Hopper RN [facility] Comment on above: 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) Start: 02-11-2022 End: 02-11-2022 Subsequent hospital visit by physician Tanvir Black MD Work Phone: [facility] Comment on above: 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) Start: 01-21-2022 Telephone encounter Liseth JhaD [facility] Comment on above: Prior Authorization [...] Phone: Start: 11-13-2022 Alpha-fetoprotein serum Saskia Madison SAP BASIS ADMINISTRATOR-MERCHANDISE HANDLER Work Phone: Start: 11-13-2022 Antihuman globulin direct [...] 01-08-2022 Iadna hepatitis c quant & reverse grader green meat Ivy Chua MD Work Phone: Start: 01-08-2022 [...] 05-08-2025 Influenza vaccination Influenza Vaccine (Season Ended) [facility] Start: 04-26-2025 Adult BMI Screening Adult BMI Screening [facility] Start: 04-26-2025 Tobacco Screening Tobacco Screening [facility] Start: 04-21-2025 Tobacco Screening [facility] Screening [facility] Start: 04-14-2025 Adult BMI Screening Adult BMI Screening [facility] Start: 04-14-2025 Tobacco Screening [facility] Start: 01-24-2025 End: 01-24-2025 Patient encounter procedure 01/24/2025 9:00 AM EDT Off ice Visit [facility] [address] [address] [place] [phone] Kenn Hickey, PhD [address] [place] [address] Arrived [facility] Comment on above: Arrived Start: 05-12-2024 End: 05-12-2024 Patient encounter procedure 05/12/2024 9:30 AM EDT Off ice Visit [facility] [address] [place] [id number] Radha Bertrand MD [address] [place] [address] [facility] Start: 05-08-2024 COVID-19 Vaccine ( season) COVID-19 Vaccine () [facility] Start: 05-08-2024 Influenza vaccination [facility] Start: 04-26-2024 End: 04-26-2024 Admission to same day surgery center 04/26/2024 10:45 AM EDT - 04/26/2024 1:00 PM EDT Surgery [facility] [address] [place] [address] Radha Bertrand MD [address] [place] [address] ANGIOGRAM EXTREMITY LOWER WITH INTERVENTION [facility] Comment on above: ANGIOGRAM EXTREMITY LOWER WITH INTERVENT ION Start: 04-26-2024 End: 04-26-2024 ANGIOGRAM EXTREMITY LOWER ANGIOGRAM EXTREMITY LOWER ARTERIOVENOUS MALFORMATION LEG RIGHT 04/26/2024 10:45 AM EDT [facility] Start: 04-26-2024 Subsequent hospital visit by physician 04/26/2024 10:45 AM EDT Hospital Encounter [facility] [address] [place] [phone] Radha Bertrand MD [address] [place] [address] [facility] Start: 01-22-2024 End: 01-22-2024 Patient encounter procedure 01/22/2024 9:30 AM EDT Off ice Visit General Surgery [address] [address] Bang Fuentes MD [address] [place] [address] [facility] Comment on above: [facility] Start: 10-01-2023 End: 10-01-2023 Patient encounter procedure 10/01/2023 8:30 AM EST Appointment [facility] [address] [place] [address] Tanvir Black MD [address] [place] [address] [facility] Start: 09-07-2023 Behavioral Health Screening Behavioral Health Screening [facility] Start: 07-27-2023 End: 07-27-2023 Patient encounter procedure 07/27/2023 10:00 AM EST Office Visit [facility] [address] [place] [address] Marcello Ibanez MD [address] [place] [address] [facility] Start: 07-20-2023 End: 07-20-2023 Patient encounter procedure [facility] Start: 06-07-2023 Influenza vaccination Influenza Vaccine (#1) [facility] Start: 05-16-2023 Fluid sample AFP level [facility] Start: 05-08-2023 COVID-19 Vaccine ( season) COVID-19 Vaccine ( season) [facility] Start: 05-08-2023 Influenza vaccination Influenza Vaccine (#1) [facility] Start: 04-21-2023 End: 04-21-2023 Patient encounter procedure [facility] Start: 03-20-2023 End: 03-20-2023 Patient encounter procedure [facility] Start: 03-03-2023 End: 03-03-2023 Telemedicine consultation with patient 03/03/2023 11:20 AM EDT Telemedicine [facility] [address] [place] [address] Nighat Mahmood, SAP BASIS ADMINISTRATOR-MERCHANDISE HANDLER [address] [place] [address] [facility] Start: 01-20-2023 End: 01-20-2023 Patient encounter procedure 01/20/2023 Appointment Radiology [facility] Start: 01-12-2023 End: 01-12-2023 Patient encounter procedure [facility] Start: 12-16-2022 End: 12-16-2022 Patient encounter procedure 12/16/2022 Office Visit Family Practice Dejuan Lechuga MD [address] [place] [address] [facility] Start: 12-15-2022 End: 12-15-2022 Telemedicine consultation with patient 12/15/2022 Telemedicine Family Practice Theo Burks MD [address] [place] [address] [place] [address] Arrived [facility] Comment on above: Arrived Start: 12-15-2022 End: 12-16-2023 XR Ribs - left Views and Chest PA XR RIBS LT UNILAT W/PA CHEST Imaging Routine Rib pain Expected: 12/15/2022, Expires: 12/16/2023 [facility] Work Phone: Comment on above: Expected: 12/15/2022, Expires: 4 Start: 11-13-2022 End: 11-13-2022 Patient encounter procedure [facility] Start: 10-27-2022 End: 10-27-2023 RF Guidance for transjugular biopsy of Liver-- W contrast IV [facility] Comment on above: Expected: 10/27/2022, Expires: 4 Start: 10-27-2022 End: 10-27-2022 Patient encounter procedure 10/27/2022 Office Visit Gastroenterology Abbey Alvarez MD [address] [place] [address] [place] [address] [facility] Start: 09-22-2022 End: 09-22-2022 Admission to same day surgery center [facility] Comment on above: ESOPHAGOGASTRODUODENOSCOPY [...] Hospital Encounter Gastroenterology Claire Avila MD [address] [place] [address] [facility] Start: 09-19-2022 End: 09-19-2022 Patient encounter procedure 09/19/2022 Office Visit Gastroenterology Saskia Madison, LIBAN-MERCHANDISE HANDLER [address] [facility] [place] [address] [facility] [place] [facility] Start: 09-16-2022 End: 10-17-2022 SARS-CoV-2 (COVID-19) RNA [Presence] in Unspecified specimen by ANGIE with probe detection NOVEL CORONAVIRUS (COVID-19) Lab Routine Encounter for laboratory testing for severe acute respiratory syndrome coronavirus 2 (SARS-CoV-2) Expected: 09/16/2022, Expires: 10/17/2022 [facility] Work Phone: Comment on above: Expected: 09/16/2022, Expires: Start: 09-15-2022 End: 10-16-2022 SARS-CoV-2 (COVID-19) RNA [Presence] in Unspecified specimen by ANGIE with probe detection NOVEL CORONAVIRUS (COVID-19) Lab Routine Encounter for laboratory testing for severe acute respiratory syndrome coronavirus 2 (SARS-CoV-2) Expected: 09/15/2022, Expires: 10/16/2022 [facility] Work Phone: Comment on above: Expected: 09/15/2022, Expires: 3 Start: 09-11-2022 Hepatitis B vaccination Hepatitis B (HBV) Vaccine (2 of 3 - 19+ 3-dose series) [facility] Start: 09-11-2022 Hepatitis B Vaccine (2 of 3 - 19+ 3-dose series) Hepatitis B Vaccine (2 of 3 - 19+ 3-dose series) [facility] Start: 09-08-2022 End: 10-26-2022 Basic metabolic 2000 panel - Serum or Plasma BASIC METABOLIC PANEL Lab Routine Alcoholic hepatitis without ascites Alcoholic cirrhosis of liver without ascites (HCC) 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) Expected: 09/08/2022, Expires: 10/26/2022 [facility] Comment on above: Expected: 09/08/2022, Expires: 3 Start: 08-29-2022 End: 08-29-2022 Patient encounter procedure 08/29/2022 Office Visit Family Practice Theo Burks MD [address] [place] [address] [facility] Start: 08-28-2022 End: 08-28-2022 Telemedicine consultation with patient 08/28/2022 Telemedicine Gastroenterology Saskia Madison, LIBAN-DAYAMI [address] [place] [address] [facility] [place] [facility] Start: 08-27-2022 End: 09-12-2022 Assay of ferritin FERRITIN Lab Routine Alcoholic hepatitis without ascites Alcoholic cirrhosis of liver without ascites (HCC) 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) Expected: 08/27/2022, Expires: 09/12/2022 [email or web address] Comment on above: Expected: 08/27/2022, Expires: 3 Start: 08-27-2022 End: 09-12-2022 Assay of gammaglobulin iga igd igg igm each IMMUNOGLOBULIN G Lab Routine Alcoholic hepatitis without ascites Alcoholic cirrhosis of liver without ascites (HCC) 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) Expected: 08/27/2022, Expires: 09/12/2022 [employer] Comment on above: Expected: 08/27/2022, Expires: 3 Start: 08-27-2022 End: 09-12-2022 Assay of iron IRON AND TIBC Lab Routine Alcoholic hepatitis without ascites Alcoholic cirrhosis of liver without ascites (HCC) 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) Expected: 08/27/2022, Expires: 09/12/2022 [facility] [employer] [facility] [employer] Comment on above: Expected: 08/27/2022, Expires: 3 Start: 08-27-2022 End: 09-12-2022 Hfe hemochromatosis gene anal common variants HEMOCHROMATOSIS DNA TEST Lab Routine Alcoholic hepatitis without ascites Alcoholic cirrhosis of liver without ascites (HCC) 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) Expected: 08/27/2022, Expires: 09/12/2022 [employer] Comment on above: Expected: 08/27/2022, Expires: 3 Start: 08-27-2022 End: 09-12-2022 Smooth muscle antibody measurement SMOOTH MUSC ATB SCRN & TITR Lab Routine Alcoholic hepatitis without ascites Alcoholic cirrhosis of liver without ascites (HCC) 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) Expected: 08/27/2022, Expires: 09/12/2022 [email or web address] Comment on above: Expected: 08/27/2022, Expires: 3 Start: 08-27-2022 End: 09-12-2022 Unlisted chemistry procedure MISCELLANEOUS SEND OUT TE ST Lab Routine Alcoholic hepatitis without ascites Alcoholic cirrhosis of liver without ascites (HCC) 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) Expected: 08/27/2022, Expires: 09/12/2022 [facility] [employer] Work Phone: Comment on above: Expected: 08/27/2022, Expires: 3 Start: 08-25-2022 End: 09-12-2022 Prothrombin time PROTHROMBIN TIME AND INR Lab Lab Add-On Alcoholic cirrhosis of liver without ascites (HCC) Expected: 08/25/2022, Expires: 09/12/2022 [facility] [employer] Work Phone: Comment on above: Expected: 08/25/2022, Expires: 3 Start: 08-25-2022 End: 08-25-2022 Patient encounter procedure [facility] Comment on above: Arrived Start: 08-19-2022 End: 08-19-2022 Professional / ancillary services management 08/19/2022 [facility] [place] [facility] Start: 08-19-2022 End: 08-19-2022 Professional / ancillary services management 08/19/2022 [facility]illary [facility] [place] [facility] Start: 08-14-2022 End: 08-14-2023 US Abdomen RUQ US LIVER/GALL BLADDER/PANCREAS Imaging Routine Iron deficiency anemia, unspecified iron deficiency anemia type Alcoholic cirrhosis, unspecified whether ascites present (HCC) Expected: 08/14/2022, Expires: 08/14/2023 [facility] [employer] Work Phone: Comment on above: Expected: 08/14/2022, Expires: 3 Start: 08-14-2022 End: 08-14-2023 US.doppler Portal vein and Hepatic vein US HEP PORT SPLEN VEIN + DOPPLER Imaging Routine Iron deficiency anemia, unspecified iron deficiency anemia type Alcoholic cirrhosis, unspecified whether ascites present (HCC) Expected: 08/14/2022, Expires: 08/14/2023 [employer] Comment on above: Expected: 08/14/2022, Expires: 3 Start: 08-14-2022 End: 08-14-2022 [facility] Start: 07-11-2022 Hepatocellular Carcinoma Screening Hepatocellular Carcinoma Screening [facility] Start: 07-11-2022 Liver Imaging (Hepatocellular Carcinoma Screening) Liver Imaging (Hepatocellular Carcinoma Screening) [facility] Start: 07-11-2022 [facility] Start: 06-07-2022 Influenza vaccination Influenza Vaccine (#1) [facility] Start: 05-06-2022 Subsequent hospital visit by physician 05/06/2022 Hospital Encounter Oncology Medical Tanvir Black MD [address] [place] [address] Subj: Appointment Reminder [facility] Comment on above: Subj: Appointment Reminder Start: 05-06-2022 End: 05-06-2022 Patient encounter procedure [facility] Non Invasive Cardiology Start: 04-07-2022 Influenza vaccination Influenza Vaccine (#1) [facility] Start: 03-13-2022 End: 03-13-2022 Patient encounter procedure 03/13/2022 Appointment Oncology Medical [facility] Start: 03-13-2022 End: 03-13-2022 Patient encounter procedure 03/13/2022 Appointment Oncology Medical Tanvir Black MD [address] [place] [address] [facility] Start: 02-11-2022 End: 02-11-2022 ambulatory [facility] Start: 02-11-2022 End: 02-11-2022 Patient encounter procedure 02/11/2022 Appointment Oncology Medical Tanvir Black MD [address] [place] [address] [facility] Start: 01-23-2022 End: 01-23-2022 ambulatory [facility] Start: 01-23-2022 End: 01-23-2022 Patient encounter procedure 01/23/2022 Office Visit Orthopedics Ronen Welch MD [address] [place] [address] [facility] Start: 01-20-2022 End: 01-20-2022 ambulatory [facility] Start: 02-05-2021 COVID-19 Vaccine (2 [...] DTaP,Tdap and Td Vaccines (1 - Tdap) [facility] Start: 2003 Shingles (RZV) Vaccine (1 of 2) Shingles (RZV) Vaccine (1 of 2) [facility] Start: 2003 Shingrix Vaccine (1 of 2) Shingrix Vaccine (1 of 2) [facility] Start: 2003 Urine microalbumin profile DTaP,Tdap,Td Vaccine (1 - Tdap) [facility] Start: 2002 Adult BMI Screening Adult BMI Screening [facility] Start: 2002 HIV screening HIV Screening [facility] Start: 2002 Tetanus + diphtheria + acellular pertussis vaccine (product) [facility] Start: 1996 Depression Screening Depression Screening [facility] Start: 1996 Tobacco Screening Tobacco Screening [facility] Start: 1990 Pneumococcal vaccination [facility] Start: 1990 [facility] Start: 1989 COVID-19 Vaccine (#1) COVID-19 Vaccine (#1) [facility] Start: 1989 COVID-19 Vaccine (1) COVID-19 Vaccine (1) [facility] Start: 1989 [facility] Start: 03-18-1985 COVID-19 Vaccine (#1) COVID-19 Vaccine (#1) [facility] Start: 1984 Tobacco Counseling Tobacco Counseling [facility] End: 08-14-2023 Alpha-fetoprotein serum ALPHA FETOPROTEIN TUMOR MARKER Lab Routine Iron deficiency anemia, unspecified iron deficiency anemia type Alcoholic cirrhosis, unspecified whether ascites present (HCC) 1 Occurrences starting 08/14/2022 until 08/14/2023 [facility] Comment on above: 1 Occurrences starting [...] EST [facility] Assay of haptoglobin quantitative [facility] [employer] Work Phone: End: 03-13-2023 Assay of [...] Routine Dysuria 08/14/2022 12:17 PM EST [facility] [employer] Work Phone: Basic metabolic 2000 panel [...] Occurrences starting 11/12/2022 until 11/13/2023, 1 completed [facility] [employer] [facility] Comment on above: 6 Occurrences starting 11/12/2022 until 11/13/2023, 1 completed CBC panel - Blood by Automated count [facility] End: 08-14-2023 CBC panel - Blood by [...] starting 03/13/2022 until 03/13/2023, 1 completed [facility] [employer] Work Phone: Comment on above: monthly for 12 Occurrences starting 03/2022 until 03/13/2023, 1 completed End: 11-13-2023 CBC W Auto Differential panel - Blood COMPLETE BLOOD COUNT W/DIFF Lab STAT 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) 6 Occurrences starting 11/12/2022 until 11/13/2023, 1 completed [facility] Work Phone: Comment on above: 6 Occurrences starting 11/12/2022 until 11/13/2023, 1 completed Creatine kinase total CREATINE K INASE Lab Routine Muscle soreness Ordered: 08/29/2022 [facility] [employer] Work Phone: Comment on above: Ordered: 08/29/2022 ESOPHAGOGASTRODUODEN OSCOPY, GENERAL ANESTHESIA [facility] Hepatic function panel [facility] [employer] Work Phone: End: 03-13-2023 Hepatic function [...] 11:58 AM EST [facility] L[facility] End: 03-13-2023 Lactate dehydrogenase ldh LDH [...] Occurrences starting 11/12/2022 until 11/13/2023, 1 completed [facility] Comment on above: 6 Occurrences starting 11/12/2022 until 11/13/2023, 1 completed Prothrombin time [facility] End: 08-14-2023 Prothrombin time PROTHROMBIN TIME AND INR Lab Routine Iron deficiency anemia, unspecified iron deficiency anemia type Alcoholic cirrhosis, unspecified whether ascites present (HCC) 1 Occurrences starting 08/14/2022 until 08/14/2023 [facility] Comment on above: 1 Occurrences starting 08/14/2022 until 08/14/2023 Prothrombin time PROTHROMBIN IVAN E AND INR Lab Routine Nausea Ordered: 10/27/2022 [facility] [employer] Work Phone: Comment on above: Ordered: 10/27/2022 Smooth muscle antibo dy measurement SMOOTH MUSC ATB SCRN & TITR Lab Routine Alcoholic hepatitis without ascites Alcoholic cirrhosis of liver without ascites (HCC) 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) 08/25/2022 12:41 PM EST [facility] Unlisted chemistry procedure MIS CELLANEOUS SEND OUT TEST Lab Routine Alcoholic hepatitis without ascites Alcoholic cirrhosis of liver without ascites (HCC) 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) 08/25/2022 12:41 PM EST [facility] Immunizations Immunization Date Immunization Notes Care Provider Vandana watters 10-27-2022 hepatitis B vaccine, unspecified formulation Marcello Ibanez MD Work Phone: [facility] 08-14-2022 hepatitis B vaccine, adult dosage Saskia Madison [employer] ADMINISTRATOR-MERCHANDISE HANDLER [facility]: [facility] 01-08-2021 Moderna Monovalent (12+ yrs) COVID-19 vaccine, mRNA, spike protein, LNP, PF, 100 mcg/0.5 mL (AZL=375) Marcello Ibanez MD [facility]: [facility] 12-11-2020 Moderna Monovalent (12+ yrs) COVID-19 vaccine, mRNA, spike protein, LNP, PF, 100 mcg/0.5 mL (ODY=632) Marcello Ibanez MD Work Phone: [facility] NEGATED: Highlighted row has not occurred!06-09-2024 influenza virus vaccine, unspecified formulation Mario Evans [facility] NEGATED: Highlighted row has not occurred!08-26-2023 influenza virus vaccine, unspecified formulation Loreta Cummings [facility] Payers Date Payer Category Payer Self-pay [id number] 2023 Private Health Insurance [employer] [id number] 2012 Unknown [id number] [id number] .[id number] 2012 Unknown [id number] 2.840.1.858914.19 1984 Unknown [id number] .1.358724.3.579.2. 727 1984 Unknown [id number] 2.16840.1.372450.3.579.2. 727 1984 Unknown [id number] 2.16840.1.746484.3.579.2. 727 1984 Unknown [id number] 2.16840.1.080642.3.579.2. 1286 1984 Unknown [id number] 2.16840.1.459037.3.579.2. 1286 1984 Unknown [id number] 2.16.840.1.047867.3.579.2. 6 1984 Unknown [id number] 2.16.840.1.151795.3.579.2. 1285 1984 Unknown [id number] 2.16.840.1.496172.3.579.2. 1285 1984 Unknown [id number] 2.16.840.1.026916.3.579.2. 1984 Unknown [id number] 2.16.840.1.273236.3.579.2. 1984 Unknown [id number] 2.16.840.1.503715.3.579.2. 1984 Unknown [id number] 2.16.840.1.679938.3.579.2 1984 Unknown [id number] 2.16.840.1.826906.3.579.2 1984 Unknown [id number] 2.16.840.1.227547.3.579.2 1984 Unknown [id number] 2.16.840.1.414732.3.579.2 1984 Unknown [id number] 2.16.840.1.693682.3.579.2. 1984 Unknown [id number] 2.16.840.1.961742.3.579.2. 1984 Unknown [id number] 2.16.840.1.453956.3.579.2 1984 Unknown [id number] 2.16.840.1.478922.3.579.2. 1984 Unknown [id number] 2.16.840.1.779608.3.579.2. 1984 Unknown [id number] 2.16.840.1.525146.3.579.2 1984 Unknown [id number] 2.16.840.1.825017.3.579.2 1984 Unknown [id number] 2.16.840.1.816347.3.579.2 1984 Unknown [id number] 2.16.840.1.678877.3.579.2 1984 Unknown [id number] 2.16.840.1.470283.3.579.2 1984 Unknown [id number] 2.16.840.1.442280.3.579.2 1984 Unknown [id number] 2.16.840.1.620323.3.579. 1984 Unknown [id number] 2.16.840.1.576139.3.579.2 1984 Unknown [id number] 2.16.840.1.130664.3.579. 1984 Unknown [id number] 2.16.840.1.764865.3.579.2 1984 Unknown [id number] 2.16.840.1.988223.3.579.2 1984 Unknown [id number] 2.16.840.1.539427.3.579.2 1984 Unknown [id number] 2.16.840.1.977723.3.579.2 1984 Unknown [id number] 2.16.840.1.832838.3.579.2 1984 Unknown [id number] 2.16.840.1.414907.3.579.2 1984 Unknown [id number] 2.16.840.1.468132.3.579.2 1984 Unknown [id number] 2.16.840.1.809275.3.579.2. 727 1984 Unknown [id number] 2.16.840.1.139498.3.579.2. 727 1984 Unknown [id number] 2.16.840.1.688016.3.579.2. 727 1984 Unknown [id number] 2.16.840.1.809448.3.579.2. 727 1984 Unknown [id number] 2.16.840.1.847103.3.579.2. 727 1984 Unknown [id number] 2.16.840.1.920168.3.579.2. 727 1984 Unknown [id number] 2.16.840.1.717823.3.579.2. 727 1984 Unknown [id number] 2.16.840.1.225938.3.579.2. 727 1984 Unknown [id number] 2.16.840.1.622833.3.579.2. 1259 Social History Date Type Detail Facility Tobacco Tobacco smoking consumption unknown [facility] Comment on above: daily chew pt alvinies Start: 12-30-2023 End: 05-12-2024 Sex Assigned At Male [facility] Start: 1984 [facility] Tobacco smoking consumption unknown [facility] Start: 08-14-2022 End: 12-21-2024 Tobacco smoking status ORIS [facility] Comment on above: quit cigarettes 9 ye arsago cherry, quit 9 years ago Start: 09-07-2002 End: 09-17-2008 History of tobacco use Current smoker [facility] Start: 09-07-2002 End: 09-17-2008 History of tobacco use Cigarette Smoker [facility] Start: 08-14-2022 End: 04-21-2024 Tobacco use and exposure [facility]okeless tobacco [facility] History of tobacco use Chews [facility] Start: 08-05-2022 End: 12-16-2022 Exposure to SARS-CoV-2 (event) Not sure [facility] Start: 08-19-2022 End: 08-29-2022 Exposure to SARS-CoV-2 (event) Unable to assess [facility] Work Phone: Tobacco smoking status [facility] Tobacco smoking status Smokeless tobacco user within last 30 days [facility] Comment on above: quit cigarettes 9 ye ken carey, quit 9 years ago Start: 12-30-2023 Alcohol intake Current drinke r of alcohol (finding) [facility] Start: 12-30-2023 End: 05-12-2024 Alcohol intake [facility] Start: 12-30-2023 Tobacco Comment Once every cou ple of weeks [facility] Within the last year , have you [...] smoking stat us NHIS Never smoked tobacco [facility] Start: 04-14-2024 Tobacco use and exposure Former smokeless tobacco user [facility] Start: 04-14-2024 Alcoholic beverage intake Defer [facility] History of tobacco use Snuff User [facility] Start: 04-21-2024 End: 05-12-2024 Alcoholic beverage intake Ex-drinker (finding) [facility] Start: 04-21-2024 Tobacco Comment 2 tins per week [facility] Start: 04-21-2024 Alcohol Comment quit 2020 [facility] Start: 12-19-2009 Sex Male (finding) [facility] [...] and able to swallow. [Order 4 End] [id number] Start: 01-17-2022 Functional Status Date Assessment Result Facility 01-12-2025 Functional Status N/A [facility] 01-03-2025 Functional Status N/A [facility] 12-20-2024 Functional Status N/A [facility] 11-21-2024 Functional Status N/A [facility] 11-18-2024 Functional Status N/A [facility] 10-26-2024 Functional Status N/A [facility] 10-05-2024 Functional Status N/A [facility] 08-19-2024 Functional Status N/A [facility] 06-09-2024 Functional Status N/A [facility] 05-12-2024 Functional Status N/A [facility] 04-29-2024 Functional Status N/A [facility] 03-17-2024 Functional Status No [facility] 01-27-2024 Functional Status N/A [facility] 12-23-2023 Functional Status N/A [facility] 12-11-2023 Functional Status No [facility] 12-11-2023 Functional Status [facility] 11-11-2023 Functional Status N/A [facility] 10-28-2023 Functional Status N/A [facility] 09-21-2023 Functional Status N/A [facility] 09-01-2023 Functional Status N/A [facility] 08-26-2023 Functional Status N/A [facility] 07-24-2023 Functional Status N/A [facility] 06-19-2023 Functional Status N/A [facility] 03-22-2023 Functional Status N/A [facility] 02-18-2023 Functional Status N/A [facility] 02-17-2022 Functional Status N/A [facility] Clinical Notes 12-07-2019 to 01-24-2025 [...] HPI MEDICATIONS: No current outpatient medications EDUCATION/VOCATION/SOCIAL: [place] language Vietnamese. Completed high school education without any academic [...] Please contact me with any questions at [phone]. documented in this encounter [facility] 01-12-2025 Evaluation + Plan note Extrac shawn [...] Appointment Date:04/07/2025 08:40:00 AM Scheduled Provider:Vic Carrion Location:[facility] Appointment Type: Open Appointment Date:09/28/2025 02:40:00 PM Scheduled Provider:Kavon Lu DO [facility] Type:[facility]C Office Visit 20 (FT) Future [...] call with any questions or concerns that arise.[facility]:Result Comment: Electronically Signed By: Evelio Carr DO\.br\Date and Time Signed: 01/12/25 09:45 [id number] Evaluation + Plan noteExtracted from: Title:Right ultrasound-guide [...] Date:01/12/2025 08:15:00 AM Scheduled Provider:Evelio Carr DO Location:[facility] Appointment Type:Pain Management - Follow Up (FT) Appointment Date:04/07/2025 08:40:00 AM Scheduled Provider:Vic Carrion Location:[facility] Appointment Type:FM Open Appointment Date:09/28/2025 02:40:00 PM Scheduled Provider:Kavon Lu DO [facility] Appointment Type:ONC Office Visit 20 (FT) Future [...] Right diagnostic saphenous nerve block under ultrasound guidance.[facility]:Result Comment: Electronically Signed By: Evelio Carr DO.br\Date and Time Signed: 01/03/25 11:55 [id number] NotePatient Education Cardiovascular Hypertension, Adult Hypertension is [...] Keep all follow-up visits. Medicines ??? Take [id number] and prescription medicines only as told by [...] ??? Hypertension is a (more content not included)...[facility] 12-20-2024 Evaluation + Plan noteExtracted from: Title:Pain [...] Appointment Date:12/21/2024 08:20:00 AM Scheduled Provider:Vic Carrion Location:[facility] Appointment Type: Open Appointment Date:04/07/2025 08:40:00 AM Scheduled Provider:Vic Carrion Location:[facility] Appointment Type: Open Appointment Date:09/28/2025 02:40:00 [...] BID, # 180 tab(s), Refills(s) 3, Pharmacy: [facility], 170, cm, 10/05/24 9:01:00 EST, Height/Length Dosing, 78.5, kg, 10/05/24 9:11:00 EST, Weight Dosing Narcan 4 mg/0.1 mL nasal spray: 4 mg, Nasal, As Directed, for suspected overdose symptoms, # 1 kit(s), Refills(s) 0, Pharmacy: [facility], 170, cm, 10/05/24 9:01:00 EST, Height/LengthDosing, 78.5, kg, 10/05/24 9:11:00 EST, Weight Dosing Zofran ODT 4 mg Tab: 4 mg = 1 tab(s), Oral, TID, PRN Nausea, # 60 tab(s), Refills(s) 0, Pharmacy: [facility] #[id number], 170, cm, 05/12/24 15:39:00 EDT, Height/Length Dosing, 73, kg, 05/12/24 15:39:00 EDT, Weight Dosing oxyCODONE 5 mg Tab: 0.5 tab, Oral, q6hr, PRN for pain, for leg pain- severe pain only, # 28 tab(s),Refills(s) 0, Pharmacy: [facility], 170, cm, 10/05/24 9:01:00 EST, Height/Length Dosing, 78.5, kg, 10/05/24 9:11:00 EST, Weight Dosing spironolactone 50 mg Tab: 50 mg = 1 tab(s), Oral, Daily, X 90 day(s), # 90 tab(s), Refills(s) 3, Pharmacy: [facility], 170, cm, 11/21/24 9:32:00 EDT, Height/Length Dosing, 77.5, kg, 11/21/24 9:32:00 EDT, Weight Dosing Documented Medications Documented Misc DME Prescription: See Instructions, [employer] SAP Dressing 4 x 4 dressing Misc DME Prescription: See Instructions, LiquidIV hydration Misc DME Prescription: See Instructions, Muscle & joint balm CBD 880mg furosemide 20 mg Tab: = 1 tab(s), Oral, Daily, PRN Edema, Refills(s) 0 magnesium citrate: Oral, Refill(s) 0, Constipation Problem list: All Problems Thrombocytopenia / SNOMED CT 611358243 / Confirmed Elevated INR / SNOMED CT 4250486641 / Confirmed Smokeless tobacco use / SNOMED CT 2591883151 / Confirmed Hypokalemia / SNOMED CT 28240331 / Confirmed Elevated fasting glucose / SNOMED CT 404788041 / Confirmed Anemia / SNOMED CT 671704136 / Confirmed Alcohol use disorder in remission / SNOMED CT 54794841 / Confirmed Liver cirrhosis, alcoholic / SNOMED CT 8323590622 / Confirmed Venous ulcer of right leg / SNOMED CT 8540200121 / Confirmed Esophageal varices / SNOMED CT 87434612 / Confirmed Dependent edema / SNOMED CT 975547198 / Confirmed Varicose veins of legs / SNOMED CT 437015894 / Confirmed Portal venous hypertension / SNOMED CT 55746605 / Confirmed HTN (hypertension) / SNOMED CT 0219915860 / Confirmed Headache / SNOMED CT 76339743 / Confirmed Nausea / SNOMED CT 8296684733 / Confirmed Cirrhosis / SNOMED CT 86117637 / Confirmed Tobacco user / SNOMED CT 157172436 / Confirmed 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 Severe back pain / SNOMED CT 073482275 / Confirmed Diarrhea / SNOMED CT 836995231 / Confirmed Cholelithiases / SNOMED CT 118340388 / Confirmed Epigastric pain / SNOMED CT 231992457 / Confirmed Vitamin D deficiency / SNOMED CT 51391380 / Confirmed Abnormal stress test / SNOMED CT 9479487167 / Confirmed Iron deficiency anemia / SNOMED CT 890190962 / Confirmed Superficial thrombophlebitis of leg / SNOMED CT 26444055 / Confirmed Elevated liver enzymes / SNOMED CT 2868816154 / Confirmed Hemolytic anemia / SNOMED CT 230391274 / Confirmed Cellulitis of right leg / SNOMED CT 244797740005905 / Confirmed BMI 26.0-26.9,adult / SNOMED CT 0599047548 (more content not included)...[facility]:Result Comment: Electronically Signed By: Sadie Loco PA-C\.chidi\Date and Time Signed: 12/20/24 08:50 [id number] Evaluation + Plan noteExtracted from: Title:Pain Managment [...] Appointment Date:04/07/2025 08:40:00 AM Scheduled Provider:Vic Carrion Location:[facility] Appointment Type:FM Open Appointment Date:09/28/2025 02:40:00 [...] BID, # 180 tab(s), Refills(s) 3, Pharmacy: [facility], 170, cm, 10/05/24 9:01:00 EST, Height/Length Dosing, 78.5, kg, 10/05/24 9:11:00 EST, Weight Dosing Narcan 4 mg/0.1 mL nasal spray: 4 mg, Nasal, As Directed, for suspected overdose symptoms, # 1 kit(s), Refills(s) 0, Pharmacy: [facility], 170, cm, 10/05/24 9:01:00 EST, Height/LengthDosing, 78.5, kg, 10/05/24 9:11:00 EST, Weight Dosing Zofran ODT 4 mg Tab: 4 mg = 1 tab(s), Oral, TID, PRN Nausea, # 60 tab(s), Refills(s) 0, Pharmacy: [facility] #[id number], 170, cm, 05/12/24 15:39:00 EDT, Height/Length Dosing, 73, kg, 05/12/24 15:39:00 EDT, Weight Dosing gabapentin 600 mg Tab: 1,200 mg = 2 tab(s), Oral, TID, X 30 day(s), # 180 tab(s), Refills(s) 0, Pharmacy: [facility], 170, cm, 10/26/24 10:30:00 EST, Height/Length Dosing, 78.9, kg, 10/26/24 10:30:00 EST, Weight Dosing oxyCODONE 5 mg Tab: 0.5 tab, Oral, q6hr, PRN for pain, for leg pain- severe pain only, # 28 tab(s),Refills(s) 0, Pharmacy: [facility], 170, cm, 10/05/24 9:01:00 EST, Height/Length Dosing, 78.5, kg, 10/05/24 9:11:00 EST, Weight Dosing spironolactone 50 mg Tab: 50 mg = 1 tab(s), Oral, Daily, # 90 tab(s), Refills(s) 3, [facility]acy: [facility] #[id number], 170, cm, 12/23/23 11:10:00 EDT, Height/Length Dosing, 70.3, kg, 12/23/23 11:10:00 EDT, Weight Dosing Documented Medications Documented Misc DME Prescription: See Instructions, Woodruff SAP Dressing 4 x 4 dressing Misc DME Prescription: See Instructions, LiquidIV hydration Misc DME Prescription: See Instructions, Muscle & joint balm CBD 880mg furosemide 20 mg Tab: = 1 tab(s), Oral, Daily, PRN Edema, Refills(s) 0 magnesium citrate: Oral, Refill(s) 0, Constipation Problem list: All Problems Thrombocytopenia / SNOMED CT 488810999 / Confirmed Elevated INR / SNOMED CT 2632353698 / Confirmed Smokeless tobacco use / SNOMED CT 7045765781 / Confirmed Hypokalemia / SNOMED CT 96648786 / Confirmed Elevated fasting glucose / SNOMED CT 662315529 / Confirmed Anemia / SNOMED CT 328894916 / Confirmed Alcohol use disorder in remission / SNOMED CT 12379125 / Confirmed Liver cirrhosis, alcoholic / SNOMED CT 2390302982 / Confirmed Venous ulcer of right leg / SNOMED CT 5465073061 / Confirmed Esophageal varices / SNOMED CT 07477788 / Confirmed Dependent edema / SNOMED CT 559288224 / Confirmed Varicose veins of legs / SNOMED CT 645497721 / Confirmed Portal venous hypertension / SNOMED CT 20741686 / Confirmed HTN (hypertension) / SNOMED CT 2806153252 / Confirmed Headache / SNOMED CT 24492870 / Confirmed Nausea / SNOMED CT 3072992446 / Confirmed Cirrhosis / SNOMED CT 87247654 / Confirmed Tobacco user / SNOMED CT 617394148 / Confirmed Megaloblastic anemia / 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 Document Revised: 07/10/2021 Document Reviewed: 07/10/2021 [employer] Patient Education ? 2023 [employer]. Acute Pain, Adult Acute pain is [...] these instructions at home: Medicines ??? Take bqqj-mqo-bssitrz and prescription medicines only as told by [...] Do not take othe (more content not included)...[facility] 11-18-2024 NoteProgress Note-Physician Patient: WILL RALPH Age: 39 years Sex: Male : 1985 Associated Diagnoses: None Author: Josiane Chin MD Postoperative Information Postoperative disposition: Postoperative disposition: To PACU. Optimetrix number: Optimetrix number [id number]. Anesthetic utilized: General. Health Status Allergies: Allergic [...] Discharge when meets criteria ( To home ).[facility] CenterComment on above:Result Comment: Electronically Signed By: Josiane [...] Pre-operative Note 2022 Author:Josiane Dominguez Date:11/18/24 Plan [place] Society of Anesthesiologists (ASA) physical status classification: Class III. Anesthetic Preoperative Plan: Anesthesia General. Future Appointments Appointment Date:11/21/2024 08:30:00 AM Scheduled Provider:Sadie Loco PA-C Location:[facility] Appointment Type:Pain Management - Follow Up (FT) Appointment Date:11/21/2024 09:15:00 AM Scheduled Provider:Mario Evans MD [facility] Appointment Type:BAD[facility] Follow Up Appointment Date:04/07/2025 08:40:00 AM Scheduled Provider:Vic Carrion Location:[facility] Appointment Type:FM Open Appointment Date:09/28/2025 [...] what activities are safe for you. Take ddwj-pcu-nitowlh and prescription medicines only as told by [...] provider. Document Revised: 12/03/2022 Document Reviewed: 12/03/2022 [employer]lick Patient Education 2023 Jugo. [facility] 03-14-2025 NotePatient Education [...] activities are safe for you. ??? Take rdxf-unq-adjskpm and prescription medicines only as told by [...] provider. Document Revised: 12/03/2022 Document Reviewed: 12/03/2022 [employer]lick Patient Education ? 2023 Jugo.[facility] 11-18-2024 NoteEndoscopic Procedure Report - Other Patient: [...] -Repeat [facility]GD in [facility]Result Comment: Electronically Signed By: Carrol MULTANI, Mario Xiong\.chidi\Date and Time Signed: 11/18/24 09:01 EDTOther Comment: Missing Attachment - attachment storage system not supported [id number] Can be viewed in source systemMissing Attachment - attachment storage system not supported [id number] Can be viewed insource systemMissing Attachment - attachment storage system not supported [id number] Can be viewed in source systemMissing Attachment - attachment storage system not supported [id number] Can be viewed in source systemMissing Attachment - attachment storage system not supported [id number] Can be viewed in source systemMissing Attachment - attachment storage system not supported [id number] Can be viewed in source systemMissing Attachment - attachment storage system not supported [id number] Can be viewed in source systemMissing Attachment - attachment storage system not supported [id number] Can be viewed in source [id number] NoteProgress Note-Physician Patient: WILL RALPH Age: 39 [...] BID, # 180 tab(s), Refills(s) 3, Pharmacy: [facility], 170, cm, 10/05/24 9:01:00 EST, Height/Length Dosing, 78.5, kg, 10/05/24 9:11:00 EST, Weight Dosing Narcan 4 mg/0.1 mL nasal spray: 4 mg, Nasal, As Directed, for suspected overdose symptoms, # 1 kit(s), Refills(s) 0, Pharmacy: [facility], 170, cm, 10/05/24 9:01:00 EST, Height/LengthDosing, 78.5, kg, 10/05/24 9:11:00 EST, Weight Dosing Zofran ODT 4 mg Tab: 4 mg = 1 tab(s), Oral, TID, PRN Nausea, # 60 tab(s), Refills(s) 0, Pharmacy: [facility] #[id number], 170, cm, 05/12/24 15:39:00 EDT, Height/Length Dosing, 73, kg, 05/12/24 15:39:00 EDT, Weight Dosing gabapentin 300 mg Cap: See Instructions, take per office provided instructions until you are taking2 tablets three times per day, # 120 tab(s), Refills(s) 0, Pharmacy: [facility], 170, cm, 10/26/24 10:30:00 EST, Height/Length Dosing, 78.9, kg, 10/26/24 10:3... gabapentin 600 mg Tab: 1,200 mg = 2 tab(s), Oral, TID, X 30 day(s), # 180 tab(s), Refills(s) 0, Pharmacy: [facility], 170, cm, 10/26/24 10:30:00 EST, Height/Length Dosing, 78.9, kg, 10/26/24 10:30:00 EST, Weight Dosing oxyCODONE 5 mg Tab: 0.5 tab, Oral, q6hr, PRN for pain, for leg pain- severe pain only, # 28 tab(s),Refills(s) 0, Pharmacy: [facility], 170, cm, 10/05/24 9:01:00 EST, Height/Length Dosing, 78.5, kg, 10/05/24 9:11:00 EST, Weight Dosing spironolactone 50 mg Tab: 50 mg = 1 tab(s), Oral, Daily, # 90 tab(s), Refills(s) 3, Pharmacy: [facility] #[id number], 170, cm, 12/23/23 11:10:00 EDT, Height/Length Dosing, 70.3, kg, 12/23/23 11:10:00 EDT, Weight Dosing Documented Medications Documented Misc DME Prescription: See Instructions, Woodruff SAP Dressing 4 x 4 dressing Misc [...] Problems Abnormal stress test / SNOMED CT 3582935725 / Confirmed Alcohol use disorder in remission / SNOMED CT 21747409 / Confirmed Anemia / SNOMED CT 450211274 / Confirmed BMI 26.0-26.9,adult / SNOMED CT 6325507008 / Confirmed Cellulitis of right leg / SNOMED CT 810970458144332 / Confirmed Cholelithiases / SNOMED CT 665423642 / Confirmed Cirrhosis / SNOMED CT 65363471 / Confirmed Dependent edema / SNOMED CT 219063805 / Confirmed Diarrhea / SNOMED CT 775385566 / Confirmed Elevated fasting glucose / SNOMED CT 391650173 / Confirmed Elevated INR / SNOMED CT 4171660241 / Confirmed Elevated liver enzymes / SNOMED CT 4031056669 / Confirmed Epigastric pain / SNOMED CT 938068445 / Confirmed Esophageal varices / SNOMED CT 89466470 / Confi (more content not included)... [facility] CenterComment [facility] above:Result Comment: Electronically Signed By: Giuseppe [...] BID, # 180 tab(s), Refills(s) 3, Pharmacy: [facility], 170, cm, 10/05/24 9:01:00 EST, Height/Length Dosing, 78.5, kg, 10/05/24 9:11:00 EST, Weight Dosing Narcan 4 mg/0.1 mL nasal spray: 4 mg, Nasal, As Directed, for suspected overdose symptoms, # 1 kit(s), Refills(s) 0, Pharmacy: [facility], 170, cm, 10/05/24 9:01:00 EST, Height/LengthDosing, 78.5, kg, 10/05/24 9:11:00 EST, Weight Dosing Zofran ODT 4 mg Tab: 4 mg = 1 tab(s), Oral, TID, PRN Nausea, # 60 tab(s), Refills(s) 0, Pharmacy: [facility] #[id number], 170, cm, 05/12/24 15:39:00 EDT, Height/Length Dosing, 73, kg, 05/12/24 15:39:00 EDT, Weight Dosing gabapentin 300 mg Cap: See Instructions, take per office provided instructions until you are taking2 tablets three times per day, # 120 tab(s), Refills(s) 0, Pharmacy: [facility], 170, cm, 10/26/24 10:30:00 EST, Height/Length Dosing, 78.9, kg, 10/26/24 10:3... gabapentin 600 mg Tab: 1,200 mg = 2 tab(s), Oral, TID, X 30 day(s), # 180 tab(s), Refills(s) 0, Pharmacy: [facility], 170, cm, 10/26/24 10:30:00 EST, Height/Length Dosing, 78.9, kg, 10/26/24 10:30:00 EST, Weight Dosing oxyCODONE 5 mg Tab: 0.5 tab, Oral, q6hr, PRN for pain, for leg pain- severe pain only, # 28 tab(s),Refills(s) 0, Pharmacy: [facility] #[facility], 170, cm, 10/05/24 9:01:00 EST, Height/Length Dosing, 78.5, kg, 10/05/24 9:11:00 EST, Weight Dosing spironolactone 50 mg Tab: 50 mg = 1 tab(s), Oral, Daily, # 90 tab(s), Refills(s) 3, [facility]acy: [facility] #[id number], 170, cm, 12/23/23 11:10:00 EDT, Height/Length Dosing, 70.3, kg, 12/23/23 11:10:00 EDT, Weight Dosing Documented Medications Documented Misc DME Prescription: See Instructions, Woodruff SAP Dressing 4 x 4 dressing Misc [...] list: All Problems Thrombocytopenia / SNOMED CT 288220483 / Confirmed Elevated INR / SNOMED CT 4733186933 / Confirmed Smokeless tobacco use / SNOMED CT 3383138998 / Confirmed Hypokalemia / SNOMED CT 21797443 / Confirmed Elevated fasting glucose / SNOMED CT 308791072 / Confirmed Anemia / SNOMED CT 770020461 / Confirmed Alcohol use disorder in remission / SNOMED CT 41647943 / Confirmed Liver cirrhosis, alcoholic / SNOMED CT 2231218087 / Confirmed Venous ulcer of right leg / SNOMED CT 4854318316 / Confirmed Esophageal varices / SNOMED CT 16740287 / Confirmed Dependent edema / SNOMED CT 694260299 / Confirmed Varicose veins of legs / SNOMED CT 170132254 / Confirmed Portal venous hypertension / SNOMED CT 39542477 / Confirmed HTN (hypertension) / SNOMED CT 4401267455 / Confirmed Headache / SNOMED CT 49243485 / Confirmed Nausea / SNOMED CT 1812978275 / Confirmed Cirrhosis / SNOMED CT 02732021 / Confirmed Tobacco user / SNOMED CT 707927461 / Confirmed Megaloblastic anemia / SNOMED CT 62578860 / Confirmed Severe back pain / SNOMED CT 187380619 / Confirmed Diarrhea / SNOMED CT 747086886 / Confirmed Cholelithiases / SNOMED CT 177072493 / Confirmed Epigastric pain / SNOMED CT 962215411 / Confirmed Vitamin D deficiency / SNOMED CT 88448352 / Confirmed Abnormal stress test / SNOMED CT 9117104171 / Confirmed Iron deficiency anemia / SNOMED CT 068913949 / Confirmed Superfici (more content not included)...[facility] above:Result Comment: Electronically Signed By: Carrol MULTANI, Mario Xiong\.br\Date and Time Signed: 11/18/24 08:51 [id number] Evaluation + Plan noteExtracted from: Title:chronic pain [...] Date:11/21/2024 09:15:00 AM Scheduled Provider:Mario Evans MD [place] Appointment Type:BADH Follow Up Appointment Date:04/07/2025 08:40:00 AM Scheduled Provider:Vic Carrion Location:[facility] Appointment Type:FM Open Appointment Date:09/28/2025 02:40:00 [...] call with any questions or concerns that arise.[facility] CenterComment on above:Result Comment: Electronically Signed By: Evelio Carr DO.br\Date and Time Signed: 10/26/24 11:30 [id number] Hospital Discharge instructions Patient Education 10/05/2024 09:52:58 Heat Therapy, Eivs-mp-Mjmp Heat Therapy Heat therapy can help ease [...] provider. Document Revised: 06/26/2021 Document Reviewed: 06/26/2021 [employer]oblick Patient Education 2023 Jugo. 10/05/2024 09:52:50 How to Take Your Blood Pressure, Twoq-ka-Iszx How to Take Your Blood Pressure Blood [...] Follow these instructions at home: Medicines Take eumo-rop-eenmnpz and prescription medicines only as told by [...] monitor. You can buy one at a [employer] or online. When choosing one: Choose one with an arm cuff. Choose one that wraps around your upper arm. Only one finger should fit between your arm and the cuff. Do not choose one that measures your blood pressure from your wrist or finger. Where to find more information [place] [employer] Association: www.heart.org Contact a doctor if: [...] provider. Document Revised: 05/08/2022 Document Reviewed: 05/08/2022 [employer]oblick Patient Education 2023 Jugo. 10/05/2024 09:52:47 Esophageal Varices Esophageal Varices Esophageal [...] Follow these instructions at home: Medicines Take ofmu-wsv-slectsd and prescription medicines only as told by [...] provider. Document Revised: 12/11/2020 Document Reviewed: 12/11/2020 [employer]lick Patient Education 2023 Jugo. 10/05/2024 09:52:46 Cirrhosis Cirrhosis Cirrhosis is long-term [...] provider before taking any new medicines, including zckw-qfr-lwjxxvv medicines such as NSAIDs. Rest as needed. [...] Document Reviewed: 06/06/2021 Elsevier Patient Education 2023 Jugo. Follow Up Care 08/19/2024 16:34:05 With:Rachel ALBERTS, Vic Friedman, [facility], [facility] Address: [address], [address] [facility] [address] [place] [address] [phone] When:Within 6 Month(s) Comments:sooner if needed. keep specialists appointments. [facility] 01-29-2025 NotePatient Education [...] these instructions at home: Medicines ??? Take usjg-drt-ckdqdce and prescription medicines only as told by [...] provider. Document Revised: 12/11/2020 Document Reviewed: 12/11/2020 [employer]oblick Patient Education ? 2023 Jugo. Cirrhosis Cirrhosis is long-term (chronic) liver injury. The liver is the body's largest internal organ, and it performs many functions. It converts food into energy, removes toxic material from the blood, makes important proteins, and absor (more content not included)...[facility] NoteOncology Progress Note Chief Complaint Anemia; here [...] hemoglovin is 13.9 so will continue to [facility]. No new medicAL issues recently. continues with [...] anemia per outside records previously seen at [facility] hematology by Dr. Restrepo [facility], last visit April 2023 Initially treated with 1mg/kg prednisone January 2022 but he did not tolerate this d/t insomnia and agitation, so stopped after 7 days. He was switched to MMF 1000mg BID stopped along with prophylactic Bactrim. He did not feel w (more content not included)...[facility]12[facility] Hospital Discharge instructions Patient Education 08/19/2024 17:26:11 [...] Follow these instructions at home: Medicines Take kiix-tfu-fulwrzi and prescription medicines only as told by [...] provider. Document Revised: 02/06/2022 Document Reviewed: 02/06/2022 kontoblick Patient Education 2023 Jugo. 08/19/2024 17:26:08 Hypertension, Adult Hypertension, Adult High [...] follow-up visits. This is important. Medicines Take ejeg-bln-rjnkbaz and prescription medicines only as told by [...] provider. Document Revised: 07/01/2022 Document Reviewed: 07/01/2022 [employer]oblick Patient Education 2023 Jugo. 08/19/2024 17:26:07 Form - Blood Pressure Record [...] Dairy Whole or 2% milk, cream, and vwhk-ysn-rlqt. Whole or full-fat cream cheese. Whole-fat or [...] more information National Heart, Lung, and Blood [place] (NHLBI): nhlbi.nih.gov [place] Heart Association (AHA): heart.org Academy of Nutrition and Dietetics: eatright.org National Kidney Foundation (NKF): kidney.org This information is not intended to replace advice given to you by your health care provider. Make sure you discuss any questions you have with your health care provider. Document Revised: 09/10/2023 Document Reviewed: 09/10/2023 kontoblick Patient Education 2023 [employer] Inc. 08/19/2024 17:26:03 Esophageal Varices Esophageal Varices [...] Follow these instructions at home: Medicines Take pbxh-jew-wckgmbu and prescription medicines only as told by [...] provider. Document Revised: 12/11/2020 Document Reviewed: 12/11/2020 [employer]lick Patient Education 2023 Jugo. 08/19/2024 17:26:03 Cirrhosis Cirrhosis Cirrhosis is long-term [...] provider before taking any new medicines, including wawy-ept-btvfccw medicines such as NSAIDs. Rest as needed. [...] provider. Document Revised: 06/06/2021 Document Reviewed: 06/06/2021 kontoblick Patient Education 2023 Jugo. Follow Up Care 04/29/2024 10:12:47 With:Johanny Gutierrez Address: When:Within 3 Day(s) [facility] 12-13-2024 NotePatient Education [...] one 12 oz bottle (more content not included)...[facility] Evaluation + Plan note* Assessment & Plan Note - Radha Bertrand MD - 05/12/2024 10:03 AM EDTAssociated Problem(s): Lymphedema we have ruled out AV malformation with the angiogram and there is no clear AV fistula, To me this is more available lymphedema I am referring him for complex decongestive therapy [facility]09-05-2024 Miscellaneous Notes* Assessment & Plan Note - Radha Bertrand MD - 05/12/2024 10:03 AM EDTAssociated Problem(s): Lymphedema we have ruled out AV malformation with the angiogram and there is no clear AV fistula, To me this is more available lymphedema I am referring him for complex decongestive therapy documented in this encounterWayne [facility] History of Present illness Narrative* Radha Bertrand MD - 05/12/2024 9:30 AM EDT Images from the original note were not included. To: Loreta Cummings APRN-MERCHANDISE HANDLER HPI: Will Ralph is a 38 y.o. [...] 04/26/2024 Performed by Radha Bertrand MD at [facility] SPECIAL PROC ESOPHAGOGASTRODUODENOSCOPY W/ BANDING 11/2023 [facility] LEG SURGERY Left 2022 calf I/D [...] Resource Strain: High Risk (02/27/2023) Received from [email or web address] Overall Financial Resource Strain (CARDIA) Difficulty of Paying Living Expenses: Very hard Food Insecurity: No Food Insecurity (05/12/2024) Hunger Screening Food Insecurity - Worry: Never True Food Insecurity - Inability: Never True Transportation Needs: No Transportation Needs (02/27/2023) Received from [email or web address] PRAPARE - Transportation Lack of Transportation (Medical): No Lack of Transportation (Non-Medical): No Physical Activity: Sufficiently Active (02/27/2023) Received from [email or web address] Exercise Vital Sign Days of Exercise per Week: 7 days Minutes of Exercise per Session: 120 min Stress: Stress Concern Present (02/27/2023) Received from [email or web address] [place] [employer] Occupational [employer] - Occupational Stress Questionnaire Feeling of Stress : Very much Social Connections: Socially Isolated (02/27/2023) Received from [email or web address] Social Connection and Isolation Panel [NHANES] Frequency of Communication with Friends and Family: More than three times a week Frequency of Social Gatherings with Friends and Family: Patient declined Attends Faith Services: Never Active Member of Clubs or Organizations: No Attends Club or Organization Meetings: Never Marital Status: Never Interpersonal Safety: Not At Risk (02/27/2023) Received from [email or web address] Humiliation, Afraid, Rape, and Kick questionnaire Fear of Current or Ex-Partner: No Emotionally Abused: No Physically Abused: No Sexually Abused: No Housing Instability: High Risk (02/27/2023) Received from [email or web address] Housing Stability Vital Sign Unable to Pay [...] you for your understanding. documented in this encounterWayne [facility]-04-2024 NoteOncology Progress Note Chief Complaint Anemia; no [...] anemia per outside records previously seen at [facility] hematology by Dr. Tanvir Castillo Black, [...] hemolysis currently. Macrocytosis is (more content not included)...[facility] Hospital Discharge instructions Patient Education 04/29/2024 10:25:40 [...] Follow these instructions at home: Medicines Take tizk-cxi-xxxlepi and prescription medicines only as told by [...] provider. Document Revised: 02/06/2022 Document Reviewed: 02/06/2022 [employer] Patient Education 2022 Jugo. 04/29/2024 10:25:38 Nausea, Adult Nausea, Adult Nausea [...] water added (diluted fruit juice). Eat bland, vcsz-hs-ojouoa foods in small amounts as you are able. These foods include bananas, applesauce, rice, lean meats, toast, and crackers. Avoid drinking fluids that contain a lot of sugar or caffeine, such as energy drinks, sports drinks, and soda. Avoid alcohol. Avoid spicy or fatty foods. General instructions Take vuai-kmq-cqxiluk and prescription medicines only as told by your health care provider. Rest at home while you recover. Drink enough fluid to keep your urine pale yellow. Breathe slowly and deeply when you feel nauseous. Avoid smelling things that have strong odors. Wash your hands often using soap and water for at least 20 seconds. If soap and water are not available, use hand hose stripper. Make sure that everyone in your household [...] recommendations for eating and drinking and take fzhi-lwr-bihbhkq and prescription medicinesonly as told by your [...] provider. Document Revised: 02/28/2022 Document Reviewed: 02/28/2022 [employer]oblick Patient Education 2022 Jugo. 04/29/2024 10:25:33 Smokeless Tobacco Information, Teen Smokeless [...] the free quitSTART lauren. Hotlines, such as 2-749-KEQH-NOW ( ). Where to find more information You can learn more about the risks of using smokeless tobacco and the benefits of quitting from these sources: Centers for Disease Control and Prevention: cdc.gov National [place] on Drug Abuse: avery.nih.gov [place] [employer] Pediatrics: healthychildren.org [place] [employer] Society: cancer.org Contact a health care [...] provider. Document Revised: 05/21/2022 Document Reviewed: 05/21/2022 kontoblick Patient Education 2022 Jugo. 04/29/2024 10:25:29 Peripheral Edema Peripheral Edema Peripheral [...] by your health care provider. Medicines Take jmms-hzl-kfgwqrj and prescription medicines only as told by [...] provider. Document Revised: 04/28/2022 Document Reviewed: 04/28/2022 kontoblick Patient Education 2022 Jugo. 04/29/2024 10:25:24 Anemia Anemia Anemia is a [...] spleen. Follow these instructions at home: Take pmbs-xsb-lwpbtdh and prescription medicines only as told by [...] provider. Document Revised: 11/17/2022 Document Reviewed: 11/17/2022 kontoblick Patient Education 2022 Jugo. 04/29/2024 10:25:22 DASH Eating Plan DASH Eating [...] Dairy Whole or 2% milk, cream, and yaax-mmd-ptyt. Whole or full-fat cream cheese. Whole-fat or [...] more information National Heart, Lung, and Blood [place]: www.nhlbi.nih.gov [place] Heart Association: www.heart.org Academy of Nutrition and [...] provider. Document Revised: 07/27/2020 Document Reviewed: 07/27/2020 kontoblick Patient Education 2022 Jugo. 04/29/2024 10:25:19 Esophageal Varices Esophageal Varices Esophageal [...] Follow these instructions at home: Medicines Take fchf-yjz-oefikys and prescription medicines only as told by [...] provider. Document Revised: 12/11/2020 Document Reviewed: 12/11/2020 kontoblick Patient Education 2022 Jugo. 04/29/2024 10:25:18 Cirrhosis Cirrhosis Cirrhosis is long-term [...] provider before taking any new medicines, including uewj-wyg-nvcchho medicines such as NSAIDs. Rest as needed. [...] provider. Document Revised: 06/06/2021 Document Reviewed: 06/06/2021 kontoblick Patient Education 2022 Jugo. 04/29/2024 10:25:16 Thrombophlebitis Thrombophlebitis Thrombophlebitis is a [...] Follow these instructions at home: Medicines Take tldq-qtb-mqjigtl and prescription medicines only as told by [...] provider. Document Revised: 02/17/2022 Document Reviewed: 02/17/2022 kontoblick Patient Education 2022 Jugo. Follow Up Care 01/27/2024 11:04:00 With:Loreta Padilla FAM, MED Address: [address] [place] [address], [facility] [place] [phone]- When:Within 3 Month(s) Comments:f/u labs, HTN, cirrhosis, vascular disease [facility] 08-23-2024 NotePatient Education [...] these instructions at home: Medicines ? Take nwdl-wid-peatikf and prescription medicines only as told by [...] tobacco. These products incl (more content not included)...[facility]08-15-2024 Instructions * Pre-Procedure Instructions - Marlin Tierney RN - 04/21/2024 2:45 PM EDT Your surgery/procedure is scheduled at [facility] on 04/26/2024 at 10:45 Arrival Time 8:45 [facility] Address: [address] [place] [address] Park in P1 Parking lot located on [facility]. Report to the Entrance B. Check in at the information desk the surgery. The waiting room located on the second floor. If you have any questions prior to surgery, please call Pre-Admission Clinic at [phone] between 7:30 am and 4:30 pm Thursday through Thursday. If you have questions the morning of surgery, please call the Pre-op Department at [phone]. Notify your SURGEON if you develop any [...] piercings ,hair extensions that contain metal, nail czech, make-up, and contact lens. You may brush [...] RIGHTS AND RESPONSIBILITIES As a patient at [facility], you have the right to: Receive medical care and be informed of who is taking care of you Be treated with dignity and respect Have a family member/pest control service representative of choice and your physician notified of your admission Receive information and actively participate in decisions about your care and treatment Refuse care, treatment and services Decide who may provide your support and speak for you Access adventism and spiritual services Participate in ethical issues [...] of hospital charges and payment methods Patient/patient pest control service representative responsibilities are to: Provide information about health [...] and report for surgery in clean clothes. [facility]08-15-2024 Miscellaneous Notes* Pre-Procedure Instructions - Marlin Tierney RN - 04/21/2024 2:45 PM EDT Your surgery/procedure is scheduled at [facility] on 04/26/2024 at 10:45 Arrival Time 8:45 [facility] Address: [address] [place] [address] Park in P1 Parking lot located on [facility]. Report to the Entrance B. Check in at the information desk the surgery. The waiting room located on the second floor. If you have any questions prior to surgery, please call Pre-Admission Clinic at [phone] between 7:30 am and 4:30 pm Thursday through Thursday. If you have questions the morning of surgery, please call the Pre-op Department at [phone]. Notify your SURGEON if you develop any [...] piercings ,hair extensions that contain metal, nail czech, make-up, and contact lens. You may brush [...] RIGHTS AND RESPONSIBILITIES As a patient at [facility], you have the right to: Receive medical care and be informed of who is taking care of you Be treated with dignity and respect Have a family member/pest control service representative of choice and your physician notified of your admission Receive information and actively participate in decisions about your care and treatment Refuse care, treatment and services Decide who may provide your support and speak for you Access adventism and spiritual services Participate in ethical issues [...] of hospital charges and payment methods Patient/patient pest control service representative responsibilities are to: Provide information about health [...] surgery in clean clothes. documented in this encounterWhite HospitalSEOshop Group [facility] [id number] Evaluation + Plan note* Assessment & Plan Note - Radha Bertrand MD - 04/14/2024 9:26 AM EDT Associated Problem(s): AVM (arteriovenous malformation) RLE angio, possible intervention [facility] [id number] Miscellaneous Notes* Assessment & Plan Note - Radha Bertrand MD - 04/14/2024 9:26 AM EDTAssociated Problem(s): AVM (arteriovenous malformation) RLE angio, possible intervention documented in this encounterWayne [facility] History of Present illness Narrative* Radha Bertrand [...] Resource Strain: High Risk (02/27/2023) Received from [email or web address] Overall Financial Resource Strain (CARDIA) Difficulty of Paying Living Expenses: Very hard Food Insecurity: No Food Insecurity (04/14/2024) Hunger Screening Food Insecurity - Worry: Never True Food Insecurity - Inability: Never True Transportation Needs: No Transportation Needs (02/27/2023) Received from [employer] PRAPARE - Transportation Lack of Transportation (Medical): No Lack of Transportation (Non-Medical): No Physical Activity: Sufficiently Active (02/27/2023) Received from [email or web address] Exercise Vital Sign Days of Exercise per Week: 7 days Minutes of Exercise per Session: 120 min Stress: Stress Concern Present (02/27/2023) Received from [email or web address] [place] of Occupational Health - Occupational Stress Questionnaire Feeling of Stress : Very much Social Connections: Socially Isolated (02/27/2023) Received from [email or web address] Social Connection and Isolation Panel [NHANES] Frequency of Communication with Friends and Family: More than three times a week Frequency of Social Gatherings with Friends and Family: Patient declined Attends Faith Services: Never Active Member of Clubs or Organizations: No Attends Club or Organization Meetings: Never Marital Status: Never Interpersonal Safety: Not At Risk (02/27/2023) Received from [employer] Humiliation, Afraid, Rape, and Kick questionnaire Fear of Current or Ex-Partner: No Emotionally Abused: No Physically Abused: No Sexually Abused: No Housing Instability: High Risk (02/27/2023) Received from [email or web address] Housing Stability Vital Sign Unable to Pay [...] you for your understanding. documented in this encounterWayne HealthCare [facility]07-15-2024 NoteOncology Progress Note Chief Complaint Follow up [...] anemia per outside records previously seen at [facility] hematology by Dr. Tanvri Black, last visit April 2023 Initially treated [...] Contact Information Janet PAYNE-MONTY, Ella Polk, ONC [facility] [address] (more content not included)...[facility]06-24-2024 NoteOncology Progress Note Chief Complaint New pt here for Iron deficiency, Pt states that he seen a Hem doctor in [place] about a [address] Mayuri [...] anemia per outside records previously seen at [facility] hematology by Dr. Restrepo [facility], last visit April 2023 Initially treated with [...] smear, haptoglobin, basil, ld (more content not included)...[facility]06-20-2024 Hospital Discharge instructions Follow Up Care 02/25/2024 10:04:03 With:Janet HUERTA, Ella Polk, ONC Address: [address] [phone] When: Unknown Comments:start folic acid 1mg daily- [facility], cmp, ldh, reticulocytes, haptoglobin in 1mofollow-up with Dr. Lees in 1mo [facility]05-31-2024 Hospital Discharge instructions Follow Up Care 02/05/2024 13:11:28 With:Janet HUERTA, Ella Polk, ONC Address: [address] [phone] When: Unknown Comments:get records from [facility] hematologyfollow-up in 2-3 weekswill get labs [...] Follow these instructions at home: Medicines Take upth-own-qrjpvpv and prescription medicines only as told by [...] more information Society for Vascular Surgery: vascular.org [place] Heart Association: heart.org National Heart, Lung, and Blood [place]: nhlbi.nih.gov Contact a health care provider if: [...] provider. Document Revised: 02/25/2021 Document Reviewed: 02/25/2021 kontoblick Patient Education 2022 Jugo. 01/27/2024 11:32:41 Iron Deficiency Anemia, Adult Iron [...] supplement. Medicines to make heavy menstrual flow [facility]. Surgery or additional testing procedures to determine the cause of your anemia. You may need repeat blood tests to determine whether treatment is working. If the treatment does not seem to be working, you may need more tests. Follow these instructions at home: Medicines Take xcvd-tlf-djotloc and prescription medicines only as told by [...] to keep your urine pale yellow. Take gjap-hvw-vydgdho or prescription medicines. Eat foods that are [...] the cause of your iron deficiency. Take nzlc-jof-brvpodd and prescription medicines only as told by [...] provider. Document Revised: 10/01/2022 Document Reviewed: 10/01/2022 kontoblick Patient Education 2022 Jugo. 01/27/2024 11:32:38 Peripheral Edema Peripheral Edema Peripheral [...] by your health care provider. Medicines Take swgp-lbt-isyuvfn and prescription medicines only as told by [...] provider. Document Revised: 04/28/2022 Document Reviewed: 04/28/2022 kontoblick Patient Education 2022 [employer]lick Inc. 01/27/2024 11:32:35 Thrombocytopenia Thrombocytopenia Thrombocytopenia is [...] Follow these instructions at home: Medicines Take syfm-dmy-qxeqzrl and prescription medicines only as told by [...] provider. Document Revised: 02/06/2022 Document Reviewed: 02/06/2022 kontoblick Patient Education 2022 Jugo. 01/27/2024 11:32:32 Esophageal Varices Esophageal Varices Esophageal [...] Follow these instructions at home: Medicines Take tuhz-onp-ejcgyus and prescription medicines only as told by [...] provider. Document Revised: 12/11/2020 Document Reviewed: 12/11/2020 kontoblick Patient Education 2022 kont[employer]lick Inc. 01/27/2024 11:32:31 Cirrhosis Cirrhosis Cirrhosis is [...] provider before taking any new medicines, including kysl-bsy-lojtqcl medicines such as NSAIDs. Rest as needed. [...] provider. Document Revised: 06/06/2021 Document Reviewed: 06/06/2021 kontoblick Patient Education 2022 Jugo. 01/27/2024 11:32:30 Alcoholic Liver Disease Alcoholic Liver [...] can provide emotional support and guidance. Take hjpp-osb-awrbjnj and prescription medicines only as told by [...] provider. Document Revised: 06/06/2021 Document Reviewed: 06/06/2021 kontoblick Patient Education 2022 Jugo. 01/27/2024 11:32:27 DASH Eating Plan DASH Eating [...] Dairy Whole or 2% milk, cream, and tvgl-jju-olgm. Whole or full-fat cream cheese. Whole-fat or [...] more information National Heart, Lung, and Blood [place]: www.nhlbi.nih.gov [place] Heart Association: www.heart.org Academy of Nutrition and [...] provider. Document Revised: 07/27/2020 Document Reviewed: 07/27/2020 kontoblick Patient Education 2022 Jugo. Follow Up Care 10/28/2023 11:01:13 With:John ALBERTS, KEI Perkins, [facility] Address: [address] [address]- When:Within 3 Month(s) Comments:f/u labs, HTN, cirrhosis, gallstones, thrombocytopenia [facility] 04-24-2024 NoteHNO ID: [id number] Author: MARGARET ZUÑIGA MD Service: ? Author Type: Physician Type: Progress Notes Filed: 12/30/2023 16:58 Note Text: PROGRESS NOTES PATIENT NAME: Will Ralph Assessment ASSESSMENT AND PLAN The patient is a 37-year-old male with a known history of alcoholic cirrhosis and portal hypertension. He presents with abdominal pain and abnormal labs from [facility]. These values are visible in [...] option of seeing [facility] surgery at [facility] as this would be the best option [...] gallstones. Blood work was also performed through [facility] along with the CT scan. His liver function tests were elevated along with his INR and bilirubin aware of his baseline laboratory values. He does see a core machine operator and is being treated for liver failure. [...] naloxone 4 mg/actuation nasal spray (NARCAN) 1 Freeburn by nasal (alternating) route. oxyCODONE ir (OXYIR) [...] recent labs and imaging results. Margaret Zuñiga [facility]04-24-2024 History of Present illness Narrative* Margaret Zuñiga MD - 12/30/2023 4:50 PM EDT PROGRESS NOTES PATIENT NAME: Will Ralph Assessment ASSESSMENT AND PLAN The patient is a 37-year-old male with a known history of alcoholic cirrhosis and portal hypertension. He presents with abdominal pain and abnormal labs from [facility]. These values are visible in [...] the option of seeing [facility] surgery [facility] as this would be the best [...] gallstones. Blood work was also performed through [facility] along with the CT scan. His liver function tests were elevated along with his INR and bilirubin aware of his baseline laboratory values. He does see a core machine operator and is beingtreated for liver failure. He [...] naloxone 4 mg/actuation nasal spray (NARCAN) 1 Freeburn by nasal (alternating) route. oxyCODONE ir (OXYIR) [...] results. Margaret Zuñiga MD [facility] Hospital Discharge instructions Patient Education 12/23/2023 12:42:20 [...] dietitian for more information. General instructions Take cmqs-uun-rorespm and prescription medicines only as told by [...] provider. Document Revised: 05/30/2022 Document Reviewed: 05/30/2022 kontoblick Patient Education 2022 Jugo. 12/23/2023 12:42:19 Preventing Vitamin D Deficiency Preventing [...] such as almond, soy, or oat milks. ?Middlebranch juice. ?Margarine. When choosing foods, check the [...] including vitamins, herbs, eye drops, creams, and ozut-tzp-xwguagj medicines. Take blox-xjt-acjgowk and prescription medicines only as told by [...] provider. Document Revised: 05/30/2022 Document Reviewed: 05/30/2022 kontoblick Patient Education 2022 Jugo. 12/23/2023 12:42:17 Nausea, Adult Nausea, Adult Nausea [...] water added (diluted fruit juice). Eat bland, cxif-qy-seobkj foods in small amounts as you are able. These foods include bananas, applesauce, rice, lean meats, toast, and crackers. Avoid drinking fluids that contain a lot of sugar or caffeine, such as energy drinks, sports drinks, and soda. Avoid alcohol. Avoid spicy or fatty foods. General instructions Take jrai-hpb-qztwhnv and prescription medicines only as told by your health care provider. Rest at home while you recover. Drink enough fluid to keep your urine pale yellow. Breathe slowly and deeply when you feel nauseous. Avoid smelling things that have strong odors. Wash your hands often using soap and water for at least 20 seconds. If soap and water are not available, use hand hose stripper. Make sure that everyone in your household [...] recommendations for eating and drinking and take pufj-blu-ejbdafc and prescription medicinesonly as told by your [...] provider. Document Revised: 02/28/2022 Document Reviewed: 02/28/2022 kontoblick Patient Education 2022 Jugo. 12/23/2023 12:42:14 Cellulitis, Adult Cellulitis, Adult Cellulitis [...] Follow these instructions at home: Medicines Take okby-xax-hnhscsw and prescription medicines only as told by [...] such as antibiotic medicines or antihistamines. Take kijn-ddz-xmjvknc and prescription medicines only as told by [...] provider. Document Revised: 06/04/2022 Document Reviewed: 06/05/2022 kontoblick Patient Education 2022 Jugo. 12/23/2023 12:42:12 Esophageal Variceal Ligation Esophageal Variceal [...] including vitamins, herbs, eye drops, creams, and lvzp-kbo-rxyqzqh medicines. Any problems you or family members [...] provider tells you to take them. Taking adjs-guv-wbdxhwq medicines, vitamins, herbs, and supplements. General information [...] provider. Document Revised: 12/11/2020 Document Reviewed: 12/11/2020 kontoblick Patient Education 2022 Jugo. 12/23/2023 12:42:09 Nausea and Vomiting, Adult Nausea [...] water added (diluted fruit juice). Eat bland, pgcd-wm-gtqqlb foods in small amounts as you are able. These foods include bananas, applesauce, rice, lean meats, toast, and crackers. Avoid fluids that contain a lot of sugar or caffeine, such as energy drinks, sports drinks, and soda. Avoid alcohol. Avoid spicy or fatty foods. General instructions Take onev-omn-klobdxg and prescription medicines only as told by your health care provider. Drink enough fluid to keep your urine pale yellow. Wash your hands often using soap and water for at least 20 seconds. If soap and water are not available, use hand hose stripper. Make sure that everyone in your household [...] eating and drinking to prevent dehydration. Take mioc-qur-kmybwbf and prescription medicines only as told by [...] provider. Document Revised: 02/28/2022 Document Reviewed: 02/28/2022 kontoblick Patient Education 2022 Jugo. 12/23/2023 12:22:45 Gallbladder Eating Plan Gallbladder Eating [...] food, fatty cuts of meat, ice cream, danish toast, sweet rolls, pizza, cheese bread, foods covered with butter, creamy sauces, or cheese. Fried foods. These include danish fries, tempura, battered fish, breaded chicken, fried [...] provider. Document Revised: 08/08/2022 Document Reviewed: 08/08/2022 kontoblick Patient Education 2022 kontoblick Inc. 12/23/2023 12:22:34 Cholecystitis Cholecystitis Cholecystitis is [...] Follow these instructions at home: Medicines Take kzgp-nrf-gxzivjb and prescription medicines only as told by [...] provider. Document Revised: 02/25/2022 Document Reviewed: 02/25/2022 kontoblick Patient Education 2022 Jugo. 12/23/2023 12:22:32 Cholelithiasis Cholelithiasis Cholelithiasis is a [...] Follow these instructions at home: Medicines Take svyo-qox-xdxynce and prescription medicines only as told by [...] important. Where to find more information National [place] of Diabetes and Digestive and Kidney Diseases: [...] provider. Document Revised: 07/16/2020 Document Reviewed: 07/16/2020 kontoblick Patient Education 2022 Jugo. Follow Up Care 12/14/2023 11:01:47 With:John ALBERTS, KEI Perkins, [facility] Address: [facility] [address], [facility] [place] [phone]- When:Within 1 Month(s) Comments:f/u abd pain, gall stone, cirrhosis, thrombocytopenia, fatigue [facility] 04-07-2024 Evaluation + [...] Oral, q6hr, PRN, Not taking Potassium Chloride (Aep-Vzpw-Wks M20) 20 mEq oral tablet, extended release, [...] Information Loreta Cummings In [address], [address] [place] [phone]- [facility] (1) Additional Instructions: Extracted from: Title:Admission H & P Author:[facility]esh [facility]ULTANI[facility] Date:12/11/23 38 y/o M admited for [...] Appointment Date:01/27/2024 09:40:00 AM Scheduled Provider:Loreta Padilla Location:[facility] Appointment Type:FM Open Appointment Date:05/12/2024 03:15:00 PM Scheduled Provider:Carrol MULTANI, Mario Xiong Location:[facility] Appointment Type:BADH Follow Up Future Scheduled Tests Laboratory* HgbA1c 07/24/23 * Fdjwv-2-Yawzefgsixc 09/01/23 * Ceruloplasmin 09/01/23 * Antimitochondrial Antibody, [...] instructions Patient Education 12/13/2023 10:04:57 Drug Allergy, Idab-vh-Dlai Drug Allergy A drug allergy is when [...] medicines that you are allergic to. Take gseg-goj-ptjabkp and prescription medicines only as told by your doctor. If you were given allergy medicines, do not drive until your health care provider tells you it is safe. If you have hives or a rash: ?Use xaww-urv-jametjb medicines as told by your doctor. ?Put [...] provider. Document Revised: 02/03/2022 Document Reviewed: 02/03/2022 kontoblick Patient Education 2022 Jugo. 12/13/2023 10:04:49 Chronic Back Pain Chronic Back [...] pull them backward. Do not sit or insurance examiner one place for long periods of time. [...] prescription pain medicine, or muscle relaxants. Take vbbz-xbp-rexxlau and prescription medicines onlyas told by your health care provider. Ask your health care provider if the medicine prescribed to you: ?Requires you to avoid driving or using machinery. ?Can cause constipation. You may need to take these actions to prevent or treat constipation: ?Drink enough fluid to keep your urine pale yellow. ?Take bwrh-spe-whvmbsa or prescription medicines. ?Eat foods that are [...] provider. Document Revised: 10/03/2020 Document Reviewed: 10/03/2020 kontoblick Patient Education 2022 Jugo. 12/13/2023 10:04:40 Cirrhosis Cirrhosis Cirrhosis is long-term [...] provider before taking any new medicines, including acsz-rzh-lsdjkqp medicines such as NSAIDs. Rest as needed. [...] provider. Document Revised: 06/06/2021 Document Reviewed: 06/06/2021 kontoblick Patient Education 2022 Jugo. Follow Up Care 12/11/2023 09:05:25 With:Loreta Cummings Address: [facility] [address] [address]- [employer] (1) When: Unknown [facility]04-07-2024 [...] Oral, q6hr, PRN, Not taking Potassium Chloride (Nch-Zdyq-Obs M20) 20 mEq oral tablet, extended release, [...] Information Loreta Cummings In 0 days [address], [address] [address] [facility] (1) Additional Instructions:[facility] Center[facility]:Result Comment: Electronically Signed By: Rajesh MULTANI, Desi\.br\Date and Time Signed: 12/13/23 07:52 [id number] Hospital Discharge instructions Patient Education 11/11/2023 16:42:11 Endoscopy, Care After Procedure [facility] Care After Procedure Please read the instructions outlined below and refer to this sheet in the next few weeks. These discharge instructions provide you with general information on caring for yourself after you [facility]. Your doctor may also give you specific [...] blood. Document Released: 04/07/2005 Document Re-Released: 02/15/2007 [facility] Patient Information StyleChat by [employer]. 11/11/2023 16:42:11 Esophageal Varices Esophageal Varices Esophageal [...] Follow these instructions at home: Medicines Take upbn-uyi-imbmeon and prescription medicines only as told by [...] provider. Document Revised: 12/11/2020 Document Reviewed: 12/11/2020 kontoblick Patient Education 2022 Jugo. Follow Up Care 10/09/2023 11:37:06 With:Carrol MULTANI, JOE [place], [facility] Address: [address] [place], [address] [address] [phone] When: Unknown Comments:Office will call to schedule [...] of hard liquor (44 mL). Medicines Take eazr-ydy-pupvsdo and prescription medicines only as told by [...] Centers for Disease Control and Prevention: www.cdc.gov/heartdisease [place] [employer]: www.heart.org Summary Heart disease is [...] provider. Document Revised: 04/23/2022 Document Reviewed: 04/23/2022 kontoblick Patient Education 2022 Jugo. 10/28/2023 15:32:24 Form - Blood Pressure Record [...] provider. Document Revised: 05/08/2022 Document Reviewed: 05/08/2022 kontoblick Patient Education 2022 Jugo. 10/28/2023 15:32:23 DASH Eating Plan DASH Eating [...] Dairy Whole or 2% milk, cream, and alrz-sxo-zcqg. Whole or full-fat cream cheese. Whole-fat or [...] more information National Heart, Lung, and Blood [place]: www.nhlbi.nih.gov [place] [employer] Association: www.heart.org Academy of Nutrition and [...] provider. Document Revised: 07/27/2020 Document Reviewed: 07/27/2020 kontoblick Patient Education 2022 Jugo. 10/28/2023 15:32:21 Hypertension, Adult Hypertension, Adult High [...] follow-up visits. This is important. Medicines Take zsos-kkk-ydhhejs and prescription medicines only as told by [...] provider. Document Revised: 07/01/2022 Document Reviewed: 07/01/2022 kontoblick Patient Education 2022 Jugo. 10/28/2023 15:32:19 Alcoholic Liver Disease Alcoholic Liver [...] can provide emotional support and guidance. Take iuhm-dig-qhuwwhy and prescription medicines only as told by [...] provider. Document Revised: 06/06/2021 Document Reviewed: 06/06/2021 kontoblick Patient Education 2022 Jugo. 10/28/2023 15:32:16 Thrombocytopenia Thrombocytopenia Thrombocytopenia is a [...] Follow these instructions at home: Medicines Take gyxq-rhi-nrlbqaz and prescription medicines only as told by [...] provider. Document Revised: 02/06/2022 Document Reviewed: 02/06/2022 kontoblick Patient Education 2022 Jugo. 10/28/2023 15:32:14 Varicose Veins Varicose Veins Varicose [...] Follow these instructions at home: Medicines Take xllh-yym-sibqqqy and prescription medicines only as told by [...] provider. Document Revised: 02/05/2022 Document Reviewed: 02/05/2022 kontoblick Patient Education 2022 Jugo. 10/28/2023 15:32:09 Nausea, Adult Nausea, Adult Nausea [...] water added (diluted fruit juice). Eat bland, jhlm-wj-mfrclr foods in small amounts as you are able. These foods include bananas, applesauce, rice, lean meats, toast, and crackers. Avoid drinking fluids that contain a lot of sugar or caffeine, such as energy drinks, sports drinks, and soda. Avoid alcohol. Avoid spicy or fatty foods. General instructions Take lbos-sji-ioogdwx and prescription medicines only as told by your health care provider. Rest at home while you recover. Drink enough fluid to keep your urine pale yellow. Breathe slowly and deeply when you feel nauseous. Avoid smelling things that have strong odors. Wash your hands often using soap and water for at least 20 seconds. If soap and water are not available, use hand hose stripper. Make sure that everyone in your household [...] recommendations for eating and drinking and take ufmi-dus-nuazhru and prescription medicinesonly as told by your [...] Document Reviewed: 02/28/2022 Elsevier Patient Education 2022 Jugo. [facility] Primary Care 01-15-2024 Hospital Discharge instructions Follow Up Care 09/21/2023 12:59:46 With:Loreta Padilla FAM, [facility] Address: [address], [facility] [address] [address]- When: Unknown [facility] Con[facility]ient Care 12-20-2023 Hospital Discharge [...] products, such as yogurt. General instructions Take zgak-mco-vdbhref and prescription medicines only as told by [...] provider. Document Revised: 05/08/2022 Document Reviewed: 05/08/2022 kontoblick Patient Education 2022 Jugo. 08/26/2023 11:03:00 Stasis Dermatitis Stasis Dermatitis Stasis [...] care provider who specializes in skin diseases (cotton seed culler). How is this treated? This condition may [...] detergents, or perfumes. Medicines Take or use ohbl-bma-zxxtoad and prescription medicines only as told by [...] provider. Document Revised: 11/04/2021 Document Reviewed: 11/04/2021 kontoblick Patient Education 2022 Jugo. 08/26/2023 11:02:52 Alcoholic Liver Disease Alcoholic Liver [...] can provide emotional support and guidance. Take mbmm-yhj-welamek and prescription medicines only as told by [...] provider. Document Revised: 06/06/2021 Document Reviewed: 06/06/2021 kontoblick Patient Education 2022 Jugo. 08/26/2023 10:41:25 Incision and Drainage Incision and [...] including vitamins, herbs, eye drops, creams, and uxpq-pub-lzjqsup medicines. Any problems you or family members [...] provider tells you to take them. Taking tvgh-gwb-zdvzyvd medicines, vitamins, herbs, and supplements. Tests You [...] provider. Document Revised: 11/27/2022 Document Reviewed: 06/05/2022 kontoblick Patient Education 2022 [employer]lick Inc. 08/26/2023 10:41:21 Stasis Dermatitis Stasis Dermatitis [...] care provider who specializes in skin diseases (cotton seed culler). How is this treated? This condition may [...] detergents, or perfumes. Medicines Take or use cmpk-oci-ajgukbc and prescription medicines only as told by [...] provider. Document Revised: 11/04/2021 Document Reviewed: 11/04/2021 kontoblick Patient Education 2022 Jugo. 08/26/2023 10:41:14 Hypokalemia Hypokalemia Hypokalemia means that [...] products, such as yogurt. General instructions Take txym-wvj-cbqbwoc and prescription medicines only as told by [...] provider. Document Revised: 05/08/2022 Document Reviewed: 05/08/2022 kontoblick Patient Education 2022 Jugo. Follow Up Care 07/24/2023 09:02:18 With:Loreta Padilla [facility], [facility] Address: [address], [address] [place] [phone] Business (1) When:Within 2 Month(s) Comments:3 mo f/u for ulcers, liver disease, labs [facility] Primary Care 11-17-2023 Hospital Discharge [...] provider before taking any new medicines, including iprh-xpu-kvjnzzb medicines such as NSAIDs. Rest as needed. [...] provider. Document Revised: 06/06/2021 Document Reviewed: 06/06/2021 kontoblick Patient Education 2022 Jugo. 07/24/2023 09:14:01 Heart Disease Prevention Heart Disease [...] of hard liquor (44 mL). Medicines Take vatp-lre-khrlnkq and prescription medicines only as told by [...] Centers for Disease Control and Prevention: www.cdc.gov/heartdisease [place] Heart Association: www.heart.org Summary Heart disease is [...] provider. Document Revised: 04/23/2022 Document Reviewed: 04/23/2022 kontoblick Patient Education 2022 Jugo. 07/24/2023 09:13:57 Anemia Anemia Anemia is a [...] spleen. Follow these instructions at home: Take wsnv-uol-wmnokjz and prescription medicines only as told by [...] provider. Document Revised: 07/08/2022 Document Reviewed: 07/31/2020 kontoblick Patient Education 2022 Jugo. 07/24/2023 09:13:53 Hypokalemia Hypokalemia Hypokalemia means that [...] products, such as yogurt. General instructions Take xrfa-xjy-unwnqgb and prescription medicines only as told by [...] provider. Document Revised: 05/08/2022 Document Reviewed: 05/08/2022 kontoblick Patient Education 2022 Jugo. 07/24/2023 09:13:45 Thrombocytopenia Thrombocytopenia Thrombocytopenia is a [...] Follow these instructions at home: Medicines Take vjgi-zcy-heeuawf and prescription medicines only as told by [...] provider. Document Revised: 02/06/2022 Document Reviewed: 02/06/2022 kontoblick Patient Education 2022 Jugo. [facility] Primary Care 10-13-2023 Hospital Discharge instructions Patient Education 06/19/2023 13:28:07 Insect Bite, Adult, Lqrl-fv-Xrlj Insect Bite, Adult An insect bite can [...] of an anaphylactic reaction may include: Feeling covering machine operator helper the face (flushed). Your face may turn [...] a day. General instructions Apply or take gzrl-tgm-rgivyen and prescription medicines only as told by [...] ?DEET. ?Picaridin. ?Oil of lemon eucalyptus (OLE). ?[id number]. Consider spraying your clothing with a pesticide [...] an anaphylactic reaction. Signs may include: ?Feeling covering machine operator helper the face. ?Itchy, red, swollen areas of [...] provider. Document Revised: 05/26/2022 Document Reviewed: 05/26/2022 kontoblick Patient Education 2022 Jugo. Follow Up Care 06/19/2023 12:16:43 With:Colby Link Address: [address], [address] [facility] [place] [address]- Business (1) When:06/22/2023 12:39:51 Comments:Follow-up with your [...] sooner should he deteriorate in any way [place] [employer] Other 08-15-2023 History of Present illness Narrative* [...] well. Monie Hernandez RN documented in this [id number] History of Present illness Narrative* Gustabo Ritchie [...] 100 %. Gustabo Pittman documented in this [id number] Hospital Discharge instructions Patient Education 03/22/2023 21:57:13 [...] Follow these instructions at home: Medicines Take ukxy-jhf-iqijwla and prescription medicines only as told by [...] such as antibiotic medicines or antihistamines. Take zcxl-rbu-iikuxgp and prescription medicines only as told by [...] provider. Document Revised: 06/05/2022 Document Reviewed: 06/05/2022 kontoblick Patient Education 2022 Jugo. Follow Up Care 03/22/2023 19:36:11 With:THEO BURKS Address:Unknown When:Within 3 Day(s) [facility]07-16-2023 Evaluation + Plan noteExtracted from: Title:ED Note Author:Martin Reese DO Date :03/22/23 Cellulitis (L03.90: Cellulit is, unspecified) Orders: ondansetron, 4 mg = 1 tab(s), Oral, q8hr, PRN Nausea/Vomiting, # 20 tab(s), Refills(s) 0, Pharmacy: [facility] #[id number], 170, cm, 03/22/23 20:14:00 EDT, Height/Length Dosing, [...] day(s), 28 tab(s), Refill(s) 0, [facility] #[id number], 170, cm, 03/22/23 20:14:00 EDT, Height/Length Dosing, [...] found in Chart Review under Referral tab. [id number] Miscellaneous Notes* Telephone Encounter - Deborah Gutierrez CPhT - 03/06/2023 8:55 AM EDT A prior authorization has been started for Lidocaine 5% patch PA status can be found under the prescription order in the Medication Tab. History or status of the PA can also be found in Chart Review under Referral tab. documented in this [id number] Telephone encounter Note* Telephone Encounter - Nighat Mahmood APRN-CNP - 02/27/2023 5:05 PM EDT Pt had video visit scheduled. Link sent to him, but he never checked in. [email or web address] Work Phone: [phone] Miscellaneous Notes* Telephone Encounter - Nighat Mahmood [...] Recommendation: n/a Thank you documented in this [id number] Telephone encounter Note* Telephone Encounter - Jordana Stanton RN - 02/27/2023 2:55 PM EDT Called the patient Reminded him of his video visit this ThursdayMarch 03 with Lindsey Mahmood Pt concerned about his leg, he will send a picture to My Chart To his provider Concerned about his infection Notified Lindsey Mahmood [email or web address] Work Phone: [phone]) 875-977606-23-2023 Telephone encounter Note* Telephone Encounter - Tobi Bowen - 02/27/2023 2:36 PM EDT What is the need: call back Situation: Pt states that the doctors office called him stating that they were running behind but he never got a phone call. Please advise Background: Please contact and advise Assessment: Pt contact info is Phone numbers Recommendation: n/a Thank you [id number] Evaluation + Plan noteExtracted from: Title:ED Note Author:Omid PARKER, Xander Field te:02/18/23 Cellulitis of right leg (L03 .115: Cellulitis of right lower limb) Right leg pain (M79.604: Pain in right leg) Orders: clindamycin, 300 mg = 1 cap(s), Oral, q6hr, X 7 day(s), # 28 cap(s), Refills(s) 0, Pharmacy: [facility] #[id number], 170, cm, 02/18/23 7:51:00 EDT, Height/Length Dosing, [...] 15 cap(s), Refills(s) 0, Pharmacy: [facility] #[id number], 170, cm, 02/18/23 7:51:00 EDT, Height/Length Dosing, 77, kg, 02/18/23 7:51:00 EDT, Weight Dosing US LE Venous Duplex Right [facility]06-14-2023 Hospital Discharge instructions Patient Education 02/18/2023 09:31:38 RICE Therapy for Routine Care of Injuries, Pkhq-nz-Jgyt RICE Therapy for Routine Care of Injuries [...] provider. Document Revised: 06/13/2021 Document Reviewed: 06/13/2021 kontoblick Patient Education 2022 Jugo. 02/18/2023 09:31:38 Musculoskeletal Pain Musculoskeletal Pain Musculoskeletal [...] by mouth or applied to theskin. Take sxbs-tmr-abxjykh and prescription medicines only as told by [...] provider. Document Revised: 12/27/2020 Document Reviewed: 12/05/2020 kontoblick Patient Education 2022 Jugo. 02/18/2023 09:31:38 Pain Without a Known Cause [...] Follow these instructions at home: Medicines Take nxgg-nqc-matzjuk and prescription medicines only as told by your health care provider. Ask your health care provider if the medicine prescribed to you: ?Requires you to avoid driving or using machinery. ?Can cause constipation. You may need to take these actions to prevent or treat constipation: ? Drink enough fluid to keep your urine pale yellow. ?Take fmlg-prm-yrhuaul or prescription medicines. ?Eat foods that are [...] the National Suicide Prevention Lifeline at or 737. This is open 24 hours a day. Text the Crisis Text Line at 857219. Summary Pain can occur in any part [...] provider. Document Revised: 04/23/2022 Document Reviewed: 04/23/2022 kontoblick Patient Education 2022 Jugo. 02/18/2023 09:31:38 Cellulitis, Adult, Xiep-sg-Tgwl Cellulitis, Adult Cellulitis is a skin infection. [...] Follow these instructions at home: Medicines Take lhow-gvs-qxnxstf and prescription medicines only as told by [...] provider. Document Revised: 06/05/2022 Document Reviewed: 06/05/2022 kontoblick Patient Education 2022 Jugo. Follow Up Care 02/18/2023 07:42:07 With:THEO BURKS [...] Portal hypertension, cirrhosis Attending: Erica Rock MD Modern Languages Professor: Leon Hernadez MD (attending) Brayan Babin MD [...] of the procedure. Brayan Babin MD Radiology [email or web address] Work Phone: 1(118) 435-507805-16-2023 Miscellaneous Notes* Post-Procedure Note - Brayan Babin MD - 01/20/2023 10:23 AM EDT POST-PROCEDURE NOTE Procedure: Transjugular liver biopsy with pressure measurements Pre-operative Diagnosis: Cirrhosis, diagnostic evaluation Post-operative Diagnosis: Portal hypertension, cirrhosis Attending: Erica Rock MD Modern Languages Professor: Leon Hernadez MD (attending) Brayan Babin MD [...] B27 positive) 2003 Followed with Rheum at [facility] Open fracture of other and unspecified part [...] Directives (Living will, health care power of associate attorney): none Patient Recent Code Status: Prior Code Status For This Procedure: Full Code Dorota Aj MD Radiology documented in this [id number] Surgery Preoperative evaluation and management note* Pre-Procedure [...] B27 positive) 2003 Followed with Rheum at [facility] Open fracture of other and unspecified part [...] Directives (Living will, health care power of associate attorney): none Patient Recent Code Status: Prior Code Status For This Procedure: Full Code Dorota Aj MD Radiology [email or web address] Work Phone: 1([phone]) 389-574305-08-2023 History of Present illness Narrative* Meka Lucas RN - 01/12/2023 11:11 AM EDT Labs drawn peripherally from right forearm. documented in this [id number] History of Present illness Narrative* Gustabo Ritchie [...] %. Gustabocarlos eduardo Pittman documented in this [id number] History of Present illness Narrative* April Jewell [...] Gastroenterology Fellow Division of Gastroenterology & Hepatology [facility] 01/12/23, 9:01 AM Associated attestation - Haley [...] Gary MD Division of Gastroenterology & Hepatology [facility] documented in this [id number] Instructions* Patient Instructions* Dejuan Lechuga MD - 12/16/2022 10:23 AM EDT [facility] [phone] [address] [place] [address] Lab tests can be done at a scheduled visit, or by appointment. [facility] [phone] [place] [address] Park in the Outpatient [place] [facility] ([facility]) Under the [facility]. Pathology is located in the Speciality Services [place] of the Outpatient [place] on the 2nd floor.Please fill out the paper form at the front sight attacher then have a seat in the Outpatient Blood Draw Lab (Pathology) waiting area. Hours Thursday 07:00 AM - 05:30 PM Thursday 07:00 AM - 05:30 PM Thursday 07:00 AM - 05:30 PM 07:00 AM - 05:30 PM Thursday 07:00 AM - 05:30 PM [facility] [phone] [place] [address] Follow the overhead sign to [place]: Radiology/X-ray & Lab (right arrow). Check in for testing at the Radiology & Lab Cash Management Clerk window. Hours Thursday 10:00 AM - 02:00 PM Thursday 08:00 AM - 07:30 PM Thursday 08:00 AM - 07:30 PM Thursday 08:00 AM - 07:30 PM 08:00 AM - 07:30 PM Thursday 08:00 AM - 07:30 PM Thursday 08:00 AM - 04:00 PM [facility] [phone] [place] [address] [place] at the front sight attacher and you will be directed to the waiting area. Laboratory staff will takeyou back to the laboratory. Hours Thursday 10:00 AM - 02:00 PM Thursday 07:30 AM - 07:30 PM Thursday 07:30 AM - 07:30 PM Thursday 07:30 AM - 07:30 PM 07:30 AM - 07:30 PM Thursday 07:15 AM - 07:45 PM Thursday 08:00 AM - 04:00 PM [facility] [phone] [place] [address] Enter through the front door and continue [...] PM Thursday 08:00 AM - 04:00 PM [facility] [phone] [place], [place] [id number] The [facility] is located on the first [...] PM Thursday 07:30 AM - 05:00 PM [facility] [phone] [place] [address] The [place] [facility] is located on the first floor, room A1-6615. Enter through the Emergency doors and follow the signs to Medical Offices , making a right turn. [place]worth at the Registration 1A desk at the end of the hallway, then proceed to the Laboratory on the right. Hours Thursday 07:30 AM - 05:00 PM Thursday 07:30 AM - 05:00 PM Thursday 07:30 AM - 05:00 PM 07:30 AM - 05:00 PM Thursday 07:30 AM - 05:00 PM [facility] [phone] [place], [place] [id number] The [facility] is located on the first [...] AM - 05:00 PM documented in this [id number] History of Present illness Narrative* Dejuan Lechuga [...] no previous surgical history on file. Diagnostics: [facility] laboratory/diagnostics reviewed and Outside laboratory/diagnostics reviewed [...] of . Alejabrandy Rolon documented in this [id number] History of Present illness Narrative* Theo Burks MD - 12/15/2022 4:20 PM EDT [facility] [place] [facility] Telemedicine Visit CC: Chief Complaint Patient presents with Fall HPI: Patient is a 37 year old cordero with a history of cirrhosis , autoimmune hemolytic anemia who presentsfor the below. 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 OBJECTIVE: Sounds ewll, no acute distress Breathing comfrotably on room air ASSESSMENT AND PLAN: 1. Rib pain Orders & Meds Signed During This Encounter X-ray Ribs Left Unilateral (Routine) lidocaine (LIDODERM) 5 % patch Documentation: Mode: Telephone Patient Patient Work Phone: Patient Cell Preferred phone: [phone] Consent: I confirmed patient understanding of the [...] Burks MD Family Medicine documented in this [id number] Telephone encounter Note* Telephone Encounter - Aleja Rolon - 12/15/2022 9:14 AM EDT Called patient and made appointment with tomorrow [id number] Miscellaneous Notes* Telephone Encounter - Aleja Rolon - 12/15/2022 9:14 AM EDT Called patient and made appointment with tomorrow documented in this [id number] History of Present illness Narrative* Marcello Ibanez [...] Gastroenterology Fellow Division of Gastroenterology & Hepatology [facility] 10/27/22, 10:43 AM * Eze Schilling - 10/27/2022 9:49 AM EST Patient was identified by name and date of . Eze SchillingPatient at risk for falls:No Falls Risk protocol implemented: No documented in this [id number] History of Present illness Narrative* Haley Gary MD - 10/27/2022 10:42 AM EST Images from the original note were not included. Department of Gastroenterology and Hepatology Hepatology Clinic Follow Up Visit GI Attending Physician: Dr. Haley Gary MD PCP: Thoe Burks MD Last GI Visit: 08/25/22 Background [...] Gastroenterology Fellow Division of Gastroenterology & Hepatology [facility] 10/27/22, 10:43 AM Attending addendum: Suspect ETOH [...] Gary MD Division of Gastroenterology & Hepatology [facility] * Eze Shcilling - 10/27/2022 9:49 AM EST Patient was identified by name and date of . Eze SchillingPatient at risk for falls:No Falls Risk protocol implemented: No documented in this [id number] History of Present illness Narrative* Haley Gary [...] Gastroenterology Fellow Division of Gastroenterology & Hepatology [facility] 10/27/22, 10:43 AM Attending addendum: Suspect ETOH [...] Gary MD Division of Gastroenterology & Hepatology [facility] * Eze Schilling - 10/27/2022 9:49 AM EST Patient was identified by name and date of . Eze SchillingPatient at risk for falls:No Falls Risk protocol implemented: No documented in this [id number] Telephone encounter Note* Telephone Encounter - Tanika [...] and will need rescheduled. Tanika Arias RN [facility] Work Phone: 1(520) 189-817301-14-2023 Miscellaneous Notes* Telephone Encounter - Tanika Arias [...] rescheduled. Tanika Arias RN documented in this [id number] History of Present illness Narrative* Theo Burks MD - 08/29/2022 9:20 AM EST [facility] [place] [facility] Telemedicine Visit CC: Chief Complaint Patient [...] surgical history personally reviewed and updated in [email or web address]. OBJECTIVE: There were no vitals taken for this visit. Gen: Sounds well, no acute distress Resp: breathing comfortably ASSESSMENT AND PLAN: 1. Cellulitis, unspecified cellulitis site 2. Muscle soreness Orders & Meds Signed During This Encounter Creatine Kinase Documentation: Mode: Telephone Patient Patient Work Phone: Patient Cell Preferred phone: [phone] Consent: I confirmed patient understanding of the [...] Burks MD Family Medicine documented in this [id number] Instructions* Patient Instructions* Theo Burks MD - 08/25/2022 2:16 PM EST Continue antibiotics for another 7 days Topical antibiotic ointment for left foot Follow up on Thursday Refilled zofran (anti-nausea medication) documented in this [id number] History of Present illness Narrative* Theo Burks MD - 08/25/2022 1:31 PM EST Images from the original note were not included. [facility] [place] [facility] Family Medicine Office Visit CC: Chief [...] surgical history personally reviewed and updated in [facility]. OBJECTIVE: BP 132/65 (BP Location: left arm, [...] Burks MD Family Medicine documented in this [id number] History of Present illness Narrative* Abbey Alvarez [...] hepatology clinic for EtOH cirrhosis. Admitted to [facility] ICU for acute alcoholic hepatitis [...] B27 positive) 2003 Followed with Rheum at [facility] Open fracture of other and unspecified part [...] Gastroenterology Fellow Division of Gastroenterology & Hepatology [facility] 08/25/22, 10:44 AM * RositaMaura guzman - 08/25/2022 10:40 AM EST Patient was identified by name and date of . Maura Hilton Patient at risk for falls:No Falls Risk protocol implemented: No documented in this [id number] History of Present illness Narrative* Abbey Alvarez [...] hepatology clinic for EtOH cirrhosis. Admitted to [facility] ICU for acute alcoholic hepatitis [...] B27 positive) 2003 Followed with Rheum at [facility] Open fracture of other and unspecified part [...] Gastroenterology Fellow Division of Gastroenterology & Hepatology [facility] 08/25/22, 10:44 AM * Maura Canela - 08/25/2022 10:40 AM EST Patient was identified by name and date of . Maura Canela Patient at risk for falls:No Falls Risk protocol implemented: No documented in this [id number] History of Present illness Narrative* Abbey Alvarez [...] hepatology clinic for EtOH cirrhosis. Admitted to [facility] ICU for acute alcoholic hepatitis [...] B27 positive) 2003 Followed with Rheum at [facility] Open fracture of other and unspecified part [...] Gastroenterology Fellow Division of Gastroenterology & Hepatology [facility] 08/25/22, 10:44 AM Associated attestation - Haley [...] Gary MD Division of Gastroenterology & Hepatology [facility] * Maura Canela - 08/25/2022 10:40 AM EST Patient was identified by name and date of . Maura Canela Patient at risk for falls:No Falls Risk protocol implemented: No documented in this [id number] Note* Addendum Note - Tanvir Black MD - 08/21/2022 8:52 PM ESTAddended by: TANVIR BLACK on: 08/21/2022 08:52 PM Modules accepted: Orders [id number] Miscellaneous Notes* Addendum Note - Tanvir Black MD - 08/21/2022 8:52 PM ESTAddended by: TANVIR BLACK on: 08/21/2022 08:52 PM Modules accepted: Orders documented in this [id number] History of Present illness Narrative* Tanvir Black MD - 08/16/2022 11:07 AM EST Images from the original note were not included. Reviewed urine C&S. Urine growing klebsiella pneumoniae, with intermediate sensitivity to Macrobid. Culture Positive Culture Report Abnormal >100,000 CFU/ml Klebsiella pneumoniae Resulting Agency: [facility] Susceptibility Klebsiella pneumoniae BHAVIN Amoxicillin + Clavulanate [...] aware Phone numbers Preferred Tanvir Black MD [facility] [phone] Hematology/Oncology 08/16/2022 . documented in this [id number] Hospital Discharge instructions* Discharge Instructions* Dante French MD - 08/15/2022 3:08 PM EST EMERGENCY DEPARTMENT FOLLOW-UP: Please see your Primary Care Physician at next available appointment for follow up. Please call today or tomorrow to make an appointment. Residents of [facility] may apply for discounts available only to residents of this [place] healthcare systems by contacting the Eligibility Call Center at [phone]. If you do not have a primary physician please call [phone] for guidance on finding a [facility] provider. PLEASE NOTE: If you are [...] during this visit: None documented in this [id number] History of Present illness Narrative* Nenita Franco [...] B27 positive) 2003 Followed with Rheum at [facility] Open fracture of other and unspecified part [...] of . Katie Paniagua documented in this [id number] History of Present illness Narrative* Tanvir Black [...] B27 positive) 2003 Followed with Rheum at [facility] Open fracture of other and unspecified part [...] Time Provider Department Center 08/19/2022 8:30 AM [facility] 2 [facility] 08/19/2022 1:45 PM [facility] 08/28/2022 10:30 AM Saskia Madison APRN-[facility] 09/19/2022 11:00 AM Saskia Madison APRN-CNP [facility] 11/13/2022 11:30 AM [facility] 11/13/2022 12:00 PM ONC NURSE [facility] Tanvir Black MD Hematology/Oncology 08/14/22 4:09 PM * Jojo Garcia - 08/14/2022 11:52 AM EST .Patient was identified by name and date of . Jojo Garcia .Patient at risk for falls:No Falls Risk protocol implemented: No documented in this [id number] History of Present illness Narrative* Emily Dunn, RN - 08/14/2022 2:08 PM EST During this visit the vaccine(s) was: Administered Obtained informed verbal consent from patient/parent/patient pest control service representative for immunization(s) as ordered, questionnaire completed and VIS educational handouts reviewed with patient/parent/patient pest control service representative who denies contraindications and verbalizes understanding of indication, potential side effect and actions to be taken if side effects occur. Double identification of patient completed with patient/parent/patient pest control service representative using name and prior to [...] B27 positive) 2003 Followed with Rheum at [facility] Open fracture of other and unspecified part [...] and/or coordination of care. Sincerely, KONRAD Quevedo [facility] Division of Gastroenterology & Hepatology 08/14/22 1:54 PM GI clinic documented in this [id number] History of Present illness Narrative* Emily Dunn RN - 08/14/2022 2:08 PM EST During this visit the vaccine(s) was: Administered Obtained informed verbal consent from patient/parent/patient pest control service representative for immunization(s) as ordered, questionnaire completed and VIS educational handouts reviewed with patient/parent/patient pest control service representative who denies contraindications and verbalizes understanding of indication, potential side effect and actions to be taken if side effects occur. Double identification of patient completed with patient/parent/patient pest control service representative using name and prior to [...] B27 positive) 2003 Followed with Rheum at [facility] Open fracture of other and unspecified part [...] and/or coordination of care. Sincerely, KONRAD Quevedo [facility] Division of Gastroenterology & Hepatology 08/15/22 8:19 AM GI clinic documented in this [id number] History of Present illness Narrative* Emily Dunn RN - 08/14/2022 2:08 PM EST During this visit the vaccine(s) was: Administered Obtained informed verbal consent from patient/parent/patient pest control service representative for immunization(s) as ordered, questionnaire completed and VIS educational handouts reviewed with patient/parent/patient pest control service representative who denies contraindications and verbalizes understanding of indication, potential side effect and actions to be taken if side effects occur. Double identification of patient completed with patient/parent/patient pest control service representative using name and prior to administration, and patient tolerated immunization(s) administration without incident. * Maura Canela - 08/14/2022 1:08 PM EST Patient was identified by name and date of . Maura WilhelmoPatient at risk for falls:No Falls Risk protocol implemented: No * Saskia Madison APRN-MERCHANDISE HANDLER - 08/14/2022 1:00 PM EST Images from [...] B27 positive) 2003 Followed with Rheum at [facility] Open fracture of other and unspecified part [...] likely 2/2 hemolytic anemia) -discuss with transplant core machine operator, Dr. Gary and arrange for f/u [...] and/or coordination of care. Sincerely, KONRAD Quevedo [facility] Division of Gastroenterology & Hepatology 08/15/22 8:19 AM GI clinic documented in this [id number] History of Present illness Narrative* Jasmyne Grimaldo [...] clinic. Jasmyne Grimaldo RN documented in this [id number] Instructions* Patient Instructions* Emily Dunn RN - [...] these numbers to schedule your Upper Endoscopy. [facility] [address] [place], [place] [address] West Entrance Thursday-Thursday 8A-4P [facility] [address], [place] [id number] Thursday-Thursday 8A-4P [facility]. [address], [place] [id number] Thursday-Thursday 8A-4P Centralized GI Procedure scheduling: UPPER [...] hours, please call to speak to the [facility] nurse telephone service representative. If you need to cancel this appointment, please call , at least 48 hours before your appointment time. For additional health or procedure preparation information call the [email or web address] line at . The [email or web address] line is open 24 hours a day including weekends and holidays. PLEASE BRING IN YOUR INSURANCE CARD AND MEDICATIONS OR LIST OF CURRENT MEDICATIONS. PLEASE LEAVE JEWELRY AT HOME AND DO NOT WEAR HEAVY FRAGRANCE OR NAIL TAJIK WE MAKE EVERY ATTEMPT TO MAINTAIN OUR [...] any problems or questions, please call the [facility] line at [phone]. documented in this [id number] Instructions* Patient Instructions* Emily Dunn RN - [...] these numbers to schedule your Upper Endoscopy. [facility] [address] [id number] [facility] Thursday-Thursday 8A-4P [facility] [address], [place] [phone] Thursday-Thursday 8A-4P [facility]. [address], [place] [id number] Thursday-Thursday 8A-4P Centralized GI Procedure scheduling: UPPER [...] hours, please call to speak to the [facility] nurse telephone service representative. If you need to cancel this appointment, please call , at least 48 hours before your appointment time. For additional health or procedure preparation information call the [email or web address] line at . The [email or web address] line is open 24 hours a day including weekends and holidays. PLEASE BRING IN YOUR INSURANCE CARD AND MEDICATIONS OR LIST OF CURRENT MEDICATIONS. PLEASE LEAVE JEWELRY AT HOME AND DO NOT WEAR HEAVY FRAGRANCE OR NAIL TAJIK WE MAKE EVERY ATTEMPT TO MAINTAIN OUR [...] any problems or questions, please call the [email or web address] line at [phone]. documented in this [id number] History of Present illness Narrative* Tanvir Black [...] B27 positive) 2003 Followed with Rheum at [facility] Open fracture of other and unspecified part [...] Center 08/14/2022 11:30 AM Tanvir Black MD [facility] 08/14/2022 12:00 PM ONC NURSE [facility] 08/14/2022 1:00 PM Saskia Madison APRN-[facility] Tavnir Black MD Hematology/Oncology 05/06/22 4:11 PM * [...] 100 %. Sally Chavez documented in this [id number] History of Present illness Narrative* Leslie Canela [...] results. Leslie Canela RN documented in this [id number] History of Present illness Narrative* Rosita Le RN - 03/13/2022 12:29 PM EDT Patient was identified by name and date of . 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 Blood obtained via venipuncture from RAC mbnrg07X 3/4in butterfly needle. Blood specimen sent to lab. Pt tolerated procedure well. Pt verbalized follow up instructions and discharged home in stable condition. Rosita Le RN documented in this [id number] History of Present illness Narrative* Tanvir Black [...] B27 positive) 2003 Followed with Rheum at [facility] Open fracture of other and unspecified part [...] to oncologist closer to his home in [facility]. Patientto call back with name of corset maker and fax number.will keep care here with [...] AM MAIN CARD TEST-311 Non Inv Card [facility] 05/06/2022 10:30 AM [facility] 05/06/2022 11:00 AM ONC NURSE [facility] Tanvir Black MD Hematology/Oncology 03/13/22 5:20 PM * Jojo Garcia - 03/13/2022 11:41 AM EDT .Patient was identified by name and date of . Jojo Garcia .Patient at risk for falls:Yes Falls Risk protocol implemented: No documented in this [id number] Hospital Discharge instructions Patient Education 02/17/2022 16:25:10 [...] care provider. Do not drink alcohol. Take ntea-rzf-jebzplw and prescription medicines only as told by [...] 08/24/2006 Document Revised: 05/26/2019 Document Reviewed: 05/26/2019 [employer] Patient Education 2020 [employer] 02/17/2022 16:25:10 Cellulitis, Adult Cellulitis, Adult [...] Follow these instructions at home: Medicines Take xsnn-jkj-ylvicvj and prescription medicines only as told by [...] such as antibiotic medicines or antihistamines. Take casz-vox-xazakeg and prescription medicines only as told by [...] 06/03/2006 Document Revised: 01/13/2019 Document Reviewed: 01/13/2019 [employer] Patient Education 2020 [employer]. 02/17/2022 16:25:10 Hypokalemia Hypokalemia Hypokalemia means that [...] hospital. Follow these instructions at home: Take qisw-pjz-ktzhzhc and prescription medicines only as told by [...] cantaloupe, kiwi, oranges, tomatoes, asparagus, and potatoes. ?[place] juice. ?Tomato juice. ?Red meats. ?Yogurt. Keep [...] 08/24/2006 Document Revised: 04/06/2019 Document Reviewed: 04/06/2019 [employer] Patient Education 2020 [employer]. 02/17/2022 16:25:10 Peripheral Edema Peripheral Edema Peripheral [...] by your health care provider. Medicines Take dijb-poo-lufxkre and prescription medicines only as told by [...] 10/01/2005 Document Revised: 05/18/2019 Document Reviewed: 05/18/2019 [employer] Patient Education 2020 [employer]. Follow Up Care 02/17/2022 12:28:34 With:Milagros Barakat Address:Unknown When:02/20/2022 15:52:54 Comments:Return to the emergency room if your pain gets worse, fever, swelling gets worse or any new symptoms With:Colby Link Address: [facility] Rommel Fernández, [facility] [address] [place] [address]- Business (1) When:Within 3 Day(s) [facility]06-13-2022 Evaluation + Plan noteExtracted from: Title:ED Note Author:Christi Luo M.D. te:02/17/22 1. Pedal edema (R60.0: Local ized edema) 2. Cellulitis of scrotum (N49.2: Inflammatory disorders of scrotum) 3. Thrombocytopenia (D69.6: Thrombocytopenia, unspecified) 4. Hypokalemia (E87.6: Hypokalemia) Orders: clindamycin, 300 mg = 2 cap(s), Oral, QID, # 56 cap(s), Refills(s) 0, Pharmacy: [facility], 170.2, cm, 02/17/22 12:34:00 EDT, Height/Length [...] Kulwinder Dozier PharmD, PharmD. Oncology Specialty Pharmacist [id number] Date: 02/11/22 [id number] Miscellaneous Notes* Telephone Encounter - Kulwinder Dozier [...] Kulwinder Dozier PharmD, PharmD. Oncology Specialty Pharmacist [id number] Date: 02/11/22 * Telephone Encounter - Kulwinder Dozier PharmD - 02/11/2022 12:39 PM EDT Images from the original note were not included. [facility] Oncology [facility]ty Pharmacy Referral [facility] received a prescription for MMF (Cellcept) for this patient on 02/11/2022. [facility] has been contacted to initiate a Prior Authorization for this medication. This is an immunomodulatory agent Patient Information: Will Ralph is a 36 year old male [id number] [facility] [id number] Insurance on file: [employer] COMMERCIAL ID: [id number] BIN: [id number] PCN: -- Group: [id number] Specialty Medication Medication and dosing: mycophenolate (CELLCEPT) 500 MG tablet- Take 2 tablets by mouth 2 times daily. 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 [...] pharmacist once medication is approved. Questions for [facility] may be directed to [phone] option 3. Thank you for the referral, Kulwinder Dozier PharmD Oncology Specialty Pharmacist [phone] [id number] documented in this [id number] Telephone encounter Note* Telephone Encounter - Kulwinder Dozier PharmD - 02/11/2022 12:39 PM EDT Images from the original note were not included. [facility] Referral [facility] received a prescription for MMF (Cellcept) for this patient on 02/11/2022. [facility] has been contacted to initiate a Prior Authorization for this medication. This is an immunomodulatory agent Patient Information: Will Ralph is a 36 year old male [id number] [facility] [id number] Insurance on file: [employer] COMMERCIAL ID: [id number] BIN: [id number] PCN: -- Group: [id number] Specialty Medication Medication and dosing: mycophenolate (CELLCEPT) 500 MG tablet- Take 2 tablets by mouth 2 times daily. 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 [...] pharmacist once medication is approved. Questions for [facility] may be directed to [phone] option 3. Thank you for the referral, Kulwinder Dozier PharmD Oncology Specialty Pharmacist [phone] [id number] History of Present illness Narrative* Cyn Hopper RN - 02/11/2022 11:45 AM EDT Patient was identified by name and date of . 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 Blood obtained via venipuncture from RAC using 23G 3/4in butterfly needle. Blood specimen sent to lab. Pt tolerated procedure well, dressing applied. AVS provided and reviewed. Pt verbalized follow up instructions and discharged home in stable condition. Cyn Hopper RN documented in this [id number] Miscellaneous Notes* Telephone Encounter - Liseth Santana [...] patient 2. Route this request to P [id number] (Pharmacy Prior Authorization Pool) Patient advised to follow up with provider's office if they have any further questions or if no answer after 3 business days. Providers office is to contact patient to advise of medication changes/next steps documented in this [id number] Miscellaneous Notes* Care Plan Note - Rosa [...] RNF BARRIERS TO PLAN OF CARE: None MASTER CERTIFIED RV TECHNICIAN IRENA Callahan RN DAY SHIFT RN Alvaro [...] was yellow x 1 day. While at [facility], patient was HDS, however noted with significant bru ising and edema of LUE. Reportedly, trauma surgery was consulted at [facility] and there was initially concern for compartment syndrome and fasciotomy was considered, but ultimately did not occur at the time. The trauma attending Dr. Du recommended orthopedic consultation upon arrival to the [facility] MICU. While at [facility] labs significant for indirect hyperbilirubinemia, and acute macrocytic anemia 6.9 requiring 1u pRBC and [address] Abd/Pelvis W/ Contrast showed liver cirrhosis and steatosis without CBD dilation. Received morphine, ceftriaxone, protonix, thiamine. Started on NS for rhabdo. Patient transferred to [facility] for tertiary center care. While in the [facility] MICU, Ortho following - request [...] Transfer to F soon- weaning precidex off Sw/cyanide case hardener for dc concerns Problem: Safety: Goal: Free [...] OF CARE: BARRIERS TO PLAN OF CARE: MASTER CERTIFIED RV TECHNICIAN RN: Bharat Callahan DAY SHIFT RN: Meli Keane * 1:1 Interaction - Keo Gaona MD - 01/14/2022 7:42 AM EDT Images from the original note were not included. SECLUSION/RESTRAINTS PROVIDER LHFM-LB-MTDM EVALUATION NOTE Will Ralph was evaluated on [...] additional home-going needs (PRN) Note: Family updates Sw/cyanide case hardener as needed Problem: Safety: Goal: Free from [...] none BARRIERS TO PLAN OF CARE: none MASTER CERTIFIED RV TECHNICIAN RN Jessee Unger RN DAY SHIFT RN Quinn Graham RN * 1:1 Interaction - Hannah Leggett MD - 01/13/2022 4:30 AM EDT Images from the original note were not included. SECLUSION/RESTRAINTS PROVIDER OGIX-WK-FVPY EVALUATION NOTE Will Ralph was evaluated on [...] None BARRIERS TO PLAN OF CARE: None MASTER CERTIFIED RV TECHNICIAN RN : Elsa Jenkins RN DAY SHIFT [...] original note were not included. SECLUSION/RESTRAINTS PROVIDER YXHE-RP-EGHR EVALUATION NOTE Will Ralph was evaluated on [...] none BARRIERS TO PLAN OF CARE: none MASTER CERTIFIED RV TECHNICIAN IRENA Canales DAY SHIFT IRENA Childers * 1:1 Interaction - Hannah Leggett MD - 01/11/2022 1:39 AM EDT Images from the original note were not included. SECLUSION/RESTRAINTS PROVIDER FUCT-PL-RAAV EVALUATION NOTE Will Ralph was evaluated on [...] remain still for MRI. Dr. Curry aware. MASTER CERTIFIED RV TECHNICIAN RN Quinn Jameson DAY SHIFT IRENA Childers * 1:1 Interaction - Abhinav De La Vega DO - 01/10/2022 2:31 PM EDT SECLUSION/RESTRAINTS PROVIDER ESMB-UM-QTUO EVALUATION NOTE Will Ralph was evaluated on [...] original note were not included. SECLUSION/RESTRAINTS PROVIDER BAMC-ZE-OQAC EVALUATION NOTE Will Ralph was evaluated on [...] were discussed with the patient and/or legal pest control service representative. The risks, benefits and alternatives were reviewed. Questions regarding blood transfusions were answered. The patient /or the patient s legal pest control service representative agree with the plan for [...] - 01/09/2022 9:02 AM EDT SECLUSION/RESTRAINTS PROVIDER IMNF-XT-ZMXI EVALUATION NOTE Will Ralph was evaluated on [...] original note were not included. SECLUSION/RESTRAINTS PROVIDER MQCW-FG-GLXB EVALUATION NOTE Will Ralph was evaluated on [...] - 01/08/2022 10:46 PM EDT SECLUSION/RESTRAINTS PROVIDER DVPT-DF-BLEK EVALUATION NOTE Will Ralph was evaluated on [...] of harm to self documented in this [id number] Hospital course Narrative* Afua Umanzor MD - 01/17/2022 3:31 PM EDT Images from the original note were not included. DISCHARGE SUMMARY [address] [address] Will Ralph Date of : 1985 36 [...] 01/20/2022 11:00 AM Abbey Alvarez MD Liver [facility] 01/23/2022 11:45 AM Ronen Welch MD [facility] ORTHO [facility] 02/11/2022 10:00 AM Tanvir Black MD [facility] Condition at Discharge Improved Activity No restrictions [...] bilirubin may falsely lower creatinine 169 63 [phone] 6.4 2.6 2.10 11.1 Comment: Elevated bilirubin [...] followed by pain. He was seen at [facility] and transferred to ICU He was [...] he will get assistance from rehab in [place] for alcohol abuse. On the day of discharge, patient was stable. Left arm swelling was improving. He has good peripheral pulses in the left arm. He is alert and oriented x3. CVS - systolic murmur, lungs - clear to auscultation, abdomen - soft, nontender, LEAD JAVA PROGRAMMER - alert, moving all extremities. Current Discharge [...] follow-up Afua umanzor MD documented in this [id number] History of Present illness Narrative* Kennedi Best [...] resources. Pt declines assistance. RAI Claudio, JOSH-S [phone] * Afua Umanzor MD - 01/16/2022 8:18 AM EDT Images from the original note were not included. GENERAL MEDICAL FLOOR DAILY PROGRESS NOTE Will Ralph [id number] 01/16/2022 Length of stay: 8 day(s) SUBJECTIVE: [...] Status: full Afua umanzor MD * Leon Snatana MD - 01/15/2022 9:47 AM EDT Images from the original note were not included. MICU ATTENDING NOTE LEON SANTANA MD - PIN [id number] I saw and evaluated the patient. I [...] Director, Pulmonary, Critical Care and Sleep Medicine [facility] * Reanna Doyle [facility] - 01/15/2022 9:24 AM EDT [...] been updated per consult agreement. REANNA DOYLE [facility] Department of Pharmacy Services * Keo Gaona MD - 01/15/2022 7:51 AM EDT Images from the original note were not included. [facility] Medical Intensive Care Unit Critical Care Progress Note Will Ralph 36 year old [id number] lbs MRN/Room: [id number]/CP3-303/1 Length of stay: 7 day(s) Summary 36M [...] was yellow x 1 day. While at [facility], patient was HDS, however noted with significant bru ising and edema of LUE. Reportedly, trauma surgery was consulted at [facility] and there was initially concern for compartment syndrome and fasciotomy was considered, but ultimately did not occur at the time. The trauma attending Dr. Du recommended orthopedic consultation upon arrival to the [facility] MICU. While at [facility] labs significant for indirect hyperbilirubinemia, and acute macrocytic anemia 6.9 requiring 1u pRBC and [address] Abd/Pelvis W/ Contrast showed liver cirrhosis and steatosis without CBD dilation. Received morphine, ceftriaxone, protonix, thiamine. Started on NS for rhabdo. Patient transferred to [facility] for tertiary center care. While in the [facility] MICU, Ortho following - request [...] improving with IV hydration Hyperbilirubinemia worsening since [facility]. DDx favors hemolysis - could be [...] No overt GIB. 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 MICU ATTENDING NOTE LEON SANTANA MD - PIN [id number] I saw and evaluated the patient. I [...] medical issues requiring critical care management include: LEAD JAVA PROGRAMMER FAILURE. HEPATIC FAILURE . Additional findings and [...] Director, Pulmonary, Critical Care and Sleep Medicine [facility] * Keo Gaona MD - 01/14/2022 7:42 AM EDT Images from the original note were not included. [facility] Medical Intensive Care Unit Critical Care Progress Note Will Ralph 36 year old 136.685 lbs MRN/Room: [id number]/CP3-303/1 Length of stay: 6 day(s) Summary 36M [...] was yellow x 1 day. While at [facility], patient was HDS, however noted with significant bru ising and edema of LUE. Reportedly, trauma surgery was consulted at [facility] and there was initially concern for compartment syndrome and fasciotomy was considered, but ultimately did not occur at the time. The trauma attending Dr. Du recommended orthopedic consultation upon arrival to the [facility] MICU. While at [facility] labs significant for indirect hyperbilirubinemia, and acute macrocytic anemia 6.9 requiring 1u pRBC and [address] Abd/Pelvis W/ Contrast showed liver cirrhosis and steatosis without CBD dilation. Received morphine, ceftriaxone, protonix, thiamine. Started on NS for rhabdo. Patient transferred to [facility] for tertiary center care. While in the [facility] MICU, Ortho following - request MR Zuniga [...] improving with IV hydration Hyperbilirubinemia worsening since [facility]. 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 [facility] Medical Intensive Care Unit Critical Care Progress Note Will Ralph 36 year old [id number] lbs MRN/Room: [id number]/CP3-303/1 Length of stay: 5 day(s) Summary 36M [...] was yellow x 1 day. While at [facility], patient was HDS, however noted with significant bru ising and edema of LUE. Reportedly, trauma surgery was consulted at [facility] and there was initially concern for compartment syndrome and fasciotomy was considered, but ultimately did not occur at the time. The trauma attending Dr. Du recommended orthopedic consultation upon arrival to the [facility] MICU. While at [facility] labs significant for indirect hyperbilirubinemia, and acute macrocytic anemia 6.9 requiring 1u pRBC and [address] Abd/Pelvis W/ Contrast showed liver cirrhosis and steatosis without CBD dilation. Received morphine, ceftriaxone, protonix, thiamine. Started on NS for rhabdo. Patient transferred to [facility] for tertiary center care. While in the [facility] MICU, Ortho following - request [...] improving with IV hydration Hyperbilirubinemia worsening since [facility]. 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 MICU ATTENDING NOTE LEON SANTANA MD - PIN [id number] I saw and evaluated the patient. I [...] management include: ACUTE BLOOD LOSS ANEMIA and LEAD JAVA PROGRAMMER FAILURE. HEPATIC FAILURE . Additional findings and [...] Director, Pulmonary, Critical Care and Sleep Medicine [facility] * Codi Thurman LSW - 01/13/2022 9:49 AM EDT ICU Note: SW continues to follow for positive screen for low risk suicide and abuse. SW spoke with bedside RN who reported pt alert but drowsy. SW to follow up with pt to attempt to address. Codi Thurman [facility] Care Coordination Department 10:59 AM Addendum: SW met with pt at bedside. Pt sleeping upon SW entering room. Pt restrained, with mits. SW did not awake to name being called several times. SW will follow up with pt as appropriate to address. Codi Thurman [facility] Care Coordination Department * Elizabeth Unger [...] ATTENDING NOTE LEON SANTANA MD - PIN [id number] I saw and evaluated the patient. I [...] management include: ACUTE BLOOD LOSS ANEMIA and LEAD JAVA PROGRAMMER FAILURE, HEPATIC FAILURE. Additional findings and notation: [...] Director, Pulmonary, Critical Care and Sleep Medicine [facility] * Keo Gaona MD - 01/12/2022 8:32 AM EDT Images from the original note were not included. [facility] Medical Intensive Care Unit Critical Care Progress Note Will Ralph 36 year old [id number] lbs MRN/Room: [id number]/CP3-303/1 Length of stay: 4 day(s) Summary 36M [...] was yellow x 1 day. While at [facility], patient was HDS, however noted with significant bru ising and edema of LUE. Reportedly, trauma surgery was consulted at [facility] and there was initially concern for compartment syndrome and fasciotomy was considered, but ultimately did not occur at the time. The trauma attending Dr. Du recommended orthopedic consultation upon arrival to the [facility] MICU. While at [facility] labs significant for indirect hyperbilirubinemia, and acute macrocytic anemia 6.9 requiring 1u pRBC and [address] Abd/Pelvis W/ Contrast showed liver cirrhosis and steatosis without CBD dilation. Received morphine, ceftriaxone, protonix, thiamine. Started on NS for rhabdo. Patient transferred to [facility] for tertiary center care. 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 [facility] Medical Intensive Care Unit Critical Care Progress Note Will Ralph 36 year old [id number] lbs MRN/Room: [id number]/CP3-139/1 Length of stay: 3 day(s) Summary 36M [...] was yellow x 1 day. While at [facility], patient was HDS, however noted with significant bru ising and edema of LUE. Reportedly, trauma surgery was consulted at [facility] and there was initially concern for compartment syndrome and fasciotomy was considered, but ultimately did not occur at the time. The trauma attending Dr. Du recommended orthopedic consultation upon arrival to the [facility] MICU. While at [facility] labs significant for indirect hyperbilirubinemia, and acute macrocytic anemia 6.9 requiring 1u pRBC and [address] Abd/Pelvis W/ Contrast showed liver cirrhosis and steatosis without CBD dilation. Received morphine, ceftriaxone, protonix, thiamine. Started on NS for rhabdo. Patient transferred to [facility] for tertiary center care. While in the [facility] MICU, Ortho following - request [...] No overt GIB. 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 I [...] Director, Pulmonary, Critical Care and Sleep Medicine [facility] * Candido Lerner MD - 01/10/2022 12:31 [...] and 1u FFP and was transfered to [facility]ICU for further management. On (01/08) [...] Candido Lerner MD Hematology- Oncology PGY-V Pager [phone] Associated attestation - Rd Weaver MD - [...] with GI attending, Dr. Haley Gary MD ([id number]) and Ulysses Solomon MD. Primary team updated via [email or web address] secure chat. We will sign off but please don't hesitate to reach out with questions or concerns. Abbey Alvarez MD Gastroenterology Fellow Personal Pager [phone] GI Consult Pager (nights and weekends) [phone] * Francisco Marino MD - 01/10/2022 9:13 AM EDT MICU ATTENDING NOTE FRANCISCO MARINO MD - PIN [id number] I saw and evaluated the patient. I [...] ACUTE BLOOD LOSS ANEMIA, HEPATIC FAILURE, and LEAD JAVA PROGRAMMER FAILURE. Additional findings and notation: Will Ralph is a 36 year old male with PMH of EtOH dependence who presented with 2 days of L arm pain to [facility] ED. 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 No pericholecystic fluid or sonographic Galenao's sign to suggest acute cholecystitis. Normal size of CBD, mild intrahepatic dilation is noted. - Acetaminophen level neg - Hepatitis viral serologies - negative - AYLNI positive IgG - US spleen - normal [...] Jaundice 3) Indirect hyperbilirubinemia -- with positive ALYIN - Labs are suggestive of hemolytic anemia [...] M.D. Pulmonary, Critical Care and Sleep Medicine [facility] * Abhinav De La Vega DO - 01/10/2022 7:16 AM EDT Images from the original note were not included. [facility] Medical Intensive Care Unit Critical Care Progress Note Will Ralph 36 year old [id number] lbs MRN/Room: [id number]/CP3-139/1 Length of stay: 2 day(s) Summary 36M [...] was yellow x 1 day. While at [facility], patient was HDS, however noted with significant bru ising and edema of LUE. Reportedly, trauma surgery was consulted at [facility] and there was initially concern for compartment syndrome and fasciotomy was considered, but ultimately did not occur at the time. The trauma attending Dr. Du recommended orthopedic consultation upon arrival to the [facility] MICU. While at [facility] labs significant for indirect hyperbilirubinemia, and acute macrocytic anemia 6.9 requiring 1u pRBC and [address] Abd/Pelvis W/ Contrast showed liver cirrhosis and steatosis without CBD dilation. Received morphine, ceftriaxone, protonix, thiamine. Started on NS for rhabdo. Patient transferred to [facility] for tertiary center care. 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 s/p 1u pRBC from [facility], did not increment appropriately - only 6.9 [...] (deescalation of antibiotics): Ceftriaxone Social- Dad Rich [phone] and mom Code Status: Full Code Dispo: MICU Plan is preliminary until discussed with attending Abhinav De La Vega DO PGY-2 [phone] (click to text page) * Bang Jameson [...] ATTENDING NOTE FRANCISCO MARINO MD - PIN [id number] I saw and evaluated the patient. I [...] ACUTE BLOOD LOSS ANEMIA, HEPATIC FAILURE, and LEAD JAVA PROGRAMMER FAILURE. Additional findings and notation: Will Ralph is a 36 year old male with PMH of EtOH dependence who presented with 2 days of L arm pain to [facility] ED. 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 Pulmonary, Critical Care and Sleep Medicine [facility] * Nasrin Smith RN - 01/09/2022 10:59 [...] No BARRIERS TO PLAN OF CARE: No MASTER CERTIFIED RV TECHNICIAN IRENA Gomez DAY SHIFT IRENA Hernandez * Codi Thurman LSW - 01/09/2022 9:47 AM EDT Admission Screen Consult: SW aware of social concern per leather cartridge belt maker screen for positive screen for low risk suicide and abuse. Pt is currently confused, restrained and unable to participate in conversation at this time. SW will follow up with pt to address as appropriate. SARAH Kelley Care Coordination Department * Ivy Chua MD - 01/09/2022 7:34 AM EDT Images from the original note were not included. [facility] Medical Intensive Care Unit Critical Care Progress Note Will Ralph 36 year old 149.6925 lbs MRN/Room: [id number]/3-139/1 Length of stay: 1 day(s) Summary 36M [...] skin was yellow x 1 day. At [facility], pt was HDS. Noted with significant bruising and edema of LUE. Reportedly, trauma surgery was consulted at [facility] and there was initially concern for compartment syndrome and fasciotomy was considered, but ultimately did not occur at the time. The trauma attending Dr. Du recommended orthopedic consultation upon arrival to the [facility] MICU. Labs significantfor indirect hyperbilirubinemia, acute macrocytic anemia 6.9. CT abd/pel with contrast showed livercirrhosis and steatosis; no CBD dilation. Received morphine, ceftriaxone, protonix, thiamine. Received 1u pRBC and 1u FFP at [facility]. Started on NS for rhabdo. Transferred to [facility] for tertiary center care. Ortho [...] for overt GIB -s/p 1u pRBC from [facility], did not increment appropriately - only [...] not reliable given recent pRBC infusion at [facility] - Large bore PIVs -transfuse Hb [...] (deescalation of antibiotics): ctx Social- dad Rich [phone] and mom Code Status: Full Code Dispo: MICU Staffed with attending song plugger Dr. Marino. Ivy Chua MD Internal Medicine [...] n/a BARRIERS TO PLAN OF CARE: n/a MASTER CERTIFIED RV TECHNICIAN RN DAY SHIFT RN Chao * Loreta Macedo - 01/08/2022 1:33 PM EDT [facility] Spiritual Care Services Services provided for: Patient and Family Services initiated by: Staff Automobile Upholsterer Apprentice Reason for services: Initial visit Narrative: Automobile Upholsterer Apprentice knocked and entered patient's room to introduce self and share availability of spiritual care. Patient was sitting up in bed, awake and alert, visiting with his parents. Patient was polite and appreciative of visit but stated he had no spiritual care needs at this time. Interventions: Introduction of service Outcome: Patient aware of concrete curer availability Plan of Care: Follow-up not anticipated Loreta Macedo MDiv Staff Automobile Upholsterer Apprentice, (she/her/hers) Ext: [phone] Pager: [phone] documented in this [id number] Consult note* Keith Bolivar OT - 01/16/2022 [...] Dep Max Mod Min CG CS DS ND I Set-Up Cues Comment Feeding x Meal [...] With Patients permission ordered no equipment via [email or web address] Order. If any questions contact [facility] DME Provider at [phone]. 6 Clicks Daily Activity OT 01/16/2022 Help [...] Guard Assist/Supervision 4 - Non = Modified [place]/Independent ASSESSMENT: ASSESSMENT: Will Ralph is performing functional [...] NA = Not Assessed, I = Independent, ND = Modified Independent, Sup = Supervised, Set [...] Dep Max Mod Min CG CS DS ND I Comment Roll to right sidelying x [...] With Patients permission ordered no equipment via [email or web address] Order. If any questions contact [facility] DME Provider at [phone]. 6 Clicks Basic Mobility PT 01/16/2022 Difficulty [...] NA = Not Assessed, I = Independent, ND = Modified Independent, Sup = Supervised, Set [...] Dep Max Mod Min CG CS DS ND I Comment Rolling x Supine<>sit x Sitting trial x Transfer x Sit<>stand x Without an assistive device. Standing trial x x2 minutes in unsupported static standing. Ambulation x 400 feet without an assistive device. Pt demonstrated step-through gait pattern with improved steadiness with continued practice. Stairs x 12 stairs with unilateral rail. Pt negotiated stairs with a zsaz-[id number] pattern. Education: Instructed pt in roles of [...] Guard Assist/Supervision 4 - Non = Modified [place]/Independent Pt resting in recliner at end of [...] Clinical Specialist in Neurologic Physical Therapy Pager: [phone] AAROM = active assisted range of motion [...] % Nutrition Focused Physical Exam Muscle loss: [place] region: mild depression Clavicle region: visible but [...] 01/13 1440 ml Est needs: current wt 6031-9397 kcal/d 30-35 kcal/kg 95 g pro/d 1.5 [...] mentation allows Mehreen Raza MS RD LD [facility] Pager [phone] () Dietitian telephone service representative (7a-7p) pager: [phone] * Chioma Butler OT - 01/14/2022 12:23 [...] joint effusion. 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 Followed with Rheum at [facility] Open fracture of other and unspecified part [...] wrapped, (R) hand bruising and dorsal edema, obstetrical anesthesiologist, Pulse Oximeter, IV, Flexiseal, male External Catheter [...] Dep Max Mod Min CG CS DS ND I Set-Up Comment Feeding x x +Corpak, [...] Dep Max Mod Min CG CS DS ND I Set-Up Comment Toilet Transfers x Anticipate [...] Orientation: Oriented to person Place: [facility] Current Date: 01/16/85 Asked pt to state year: 2021 Follows Commands: one step commands, requires occasional repeat of directions and easily distracted Attention: difficulty with divided attention, easily distracted during task and difficulty with alternating attention Memory: Impaired - recalls incident SEMICONDUCTOR TECHNICIAN Problem Solving: Impaired Safety/Judgement: requires cues for [...] With Patients permission ordered no equipment via [email or web address] Order. If any questions contact [facility] DME Provider at [phone]. 6 Clicks Daily Activity OT 01/14/2022 Help [...] Guard Assist/Supervision 4 - Non = Modified [place]/Independent ASSESSMENT: Recommend further therapy services in an [...] NA = Not Assessed, I = Independent, ND = Modified Independent, Sup = Supervised, Set [...] acute alcoholic hepatitis/Cirrhosis/Encp[ja;p[atju, suspected ETOH cirrhosis, indirect eiotcmzfxvuvnpv1gnz, jaundice, elevated INR, thrombocytopenia, hyponatremia, rabdomyolysis Precautions: [...] B27 positive) 2003 Followed with Rheum at [facility] Open fracture of other and unspecified part [...] Patient Identified Goal(s):agreeable to work with therapy 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 If any questions contact [facility] DME Provider at [phone]. 6 Clicks Basic Mobility PT 01/14/2022 Difficulty [...] acute alcoholic hepatitis/Cirrhosis/Encp[ja;p[atju, suspected ETOH cirrhosis, indirect pajcniqdlykludx5qca, jaundice, elevated INR, thrombocytopenia, hyponatremia, rabdomyolysis Pt [...] NA = Not Assessed, I = Independent, ND = Modified Independent, Sup = Supervised, Set [...] and 1u FFP and was transfered to [facility] ICU for further management. On (01/08) PM pt noted to have severe EtOH w/d requiring precedex gtt. Anemia/tcp/coaguloapthy workup upon arrival was significant for elevated LDH: 369, Hapto<15, reitc:5.2%, Tb:11.2, direct: 2.5, Hb: 6.7, plt:52, INR:1.9, YALIN: polyspecific+, IgG+ concerning for AIHA for which hematology was consulted. Additionally, 01/08 evening course c/b severe etoh withdrawal requiring precedex gtt. Pt is currentlyseverely altered and unable to provide any history. 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 On [...] Candido Lerner MD Hematology- Oncology PGY-V Pager [phone] Associated attestation - Rd Weaver MD - [...] and copper levels Mehreen Raza MS RD [facility] Pager [phone] () Dietitian telephone service representative (-7p) pager: [phone] * Robert Allen MD - 01/08/2022 5:01 [...] UE, causing him present to [facility] ED. While in the ED, the pt was noticed to be jaundiced and was found to be in acute liver failure. He was transferred to [facility] MICU for escalation of care. [...] Mcmullen DO and will be discussed with telephone service representative ortho hand attending. Dr. Welch. Robert Allen MD HÉCTOR Orthopaedic Surgery, PGY 2 Pager [phone] After 5 pm and on weekends, please page the on-call resident ([phone]) with questions or concerns. 01/08/22 This consult [...] admitted to MICU as a transfer from [facility] where he initially presented for left arm [...] multi vitamin, zinc, thiamine and folate supplementation. [facility] assessors for alcohol withdrawal - Start [...] continue to follow with you. Personal Pager [phone] GI Consult Pager (nights and weekends) [phone] Abbey Alvarez MD Gastroenterology Fellow Division of Gastroenterology & Hepatology [facility] 01/08/22 Associated attestation - Ulysses Solomon MD [...] varices. Ulysses Solomon MD documented in this [id number] Hospital Discharge instructions* Instructions* Rosa Mensah RN [...] is right for you. Copyright Copyright 2020 [employer]. and its affiliates and/or licensors. All rights [...] you to see other specialists, such as [facility] doctor, psychiatrist, social worker psychiatric, or alcohol counselor. Stay sober. Get involved [...] irritable. Where can I learn more? National [place] of Alcohol Abuse and Alcoholism http://www.niaaa.nih.gov/alcohol-health/gdrrgxea-ohorrrd-zscbgxfmcua/alcohol-use -disorders National Health Service https://www.nhs.uk/conditions/alcohol-misuse/ Substance Abuse [...] is right for you. Copyright Copyright 2020 [employer]. and its affiliates and/or licensors. All rights reserved. Patient Education Alcohol Use ? When Is Drinking a Problem? The Basics Written by the doctors and editors at [employer] How do I know if I am [...] counselor (such as a psychologist, social worker psychiatric, or psychiatrist) Take medicines Take part in [...] process is complete. This topic retrieved from [employer] on: Apr 04, 2020. Topic 63099 Version 9.0 Release: 28.4.6 - C28.294 2019 [employer] and/or its affiliates. All rights reserved. figure [...] and your health. Available at: http://rethinkingdrinking.niaaa.nih.gov. Graphic 09716 Version 1828.0 Consumer Information Use and Disclaimer [...] that is right for you.The use of [employer] content is governed by the [employer] Terms of Use. 2020 [employer]. All rights reserved. Copyright 2020 [employer] and/or its affiliates. All rights reserved. Patient [...] weights; are a rock climber, skier, gymnast, coke drawer, or food sampler; or do other sports What are the [...] playing sports. Where can I learn more? [place] [employer] https://orthoinfo.aaos.org/en/diseases--conditions/pahqfv-ghxkbw-aiym-at-the-elb ow Last Reviewed Date 2018-06-01 Consumer Information [...] is right for you. Copyright Copyright 2020 [employer]. and its affiliates and/or licensors. All rights [...] listed above. After business hours please call [facility] wash oil pump operator helper at and ask for the orthopeadicresident telephone service representative. For emergencies call 501. [facility] Upper Extremity and Hand Surgery MD Enrique Duffy MD Kyle Chepla, MD Andrea Gallup, SAP BASIS ADMINISTRATOR-MERCHANDISE HANDLER Josiane Muhammad, MD Saroj Mojica, MD Ulysses [...] is right for you. Copyright Copyright 2020 [employer]. and its affiliates and/or licensors. All rights [...] is right for you. Copyright Copyright 2020 [employer]. and its affiliates and/or licensors. All rights reserved. Patient Education Autoimmune Hemolytic Anemia The Basics Written by the doctors and editors at [employer] What is autoimmune hemolytic anemia? -- Autoimmune [...] process is complete. This topic retrieved from [employer] on: Apr 04, 2020. Topic 30549 Version 9.0 Release: 28.4.6 - C28.294 2019 [employer]. and/or its affiliates. All rights reserved. Consumer [...] that is right for you.The use of [employer] content is governed by the [employer] Terms of Use. 2020 [employer]. All rights reserved. Copyright 2020 [employer] and/or its affiliates. All rights reserved. documented in this [id number] History and physical note* Francisco Marino MD - 01/08/2022 2:02 PM EDT MICU ATTENDING NOTE FRANCISCO MARINO MD - PIN [id number] I saw and evaluated the patient. I [...] 2 days of L arm pain to [facility] ED. 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 Pulmonary, Critical Care and Sleep Medicine [facility] * Ivy Chua MD - 01/08/2022 8:50 AM EDT [facility] Medical Intensive Care Unit History and Physical Examination Will Ralph 36 year old 0 lbs MRN/Room: [id number] Admit Date: 01/08/2022 : 1985 PCP Contact: [...] and examined upon arrival to MICU at [facility]. Pt states he was working [...] of aleve every morning for pain. At [facility], presenting VS were 36.3C/HR 105/RR18/BP 145/68/ SpO2 98% on room air. Ht 170.18cm,wt 75kg. received morphine, ceftriaxone, protonix, thiamine. Received 1u pRBC and 1u FFP at [facility]. Started on NS @ 150cc/h. Reportedly, trauma surgery was consulted at [facility] and there was initially concern for compartment syndrome and fasciotomy was considered, but ultimately did not occur at the time. The trauma attending Dr. Du recommended orthopedic consultation upon arrival to the [facility] MICU. Labs at [facility] [...] ---> and please see images uploaded to [employer]. Resident's Assessment/Plan: Will Ralph is a 36 [...] for overt GIB -s/p 1u pRBC from [facility], did not increment appropriately - [...] Code Status: Full Code Staffed with attending song plugger Dr. Marino. Ivy Chua MD Internal Medicine PGY-3 documented in this [id number] Evaluation + Plan note Extracted from: Title:Admission [...] immediate surgery. Patient waiting for bed at [facility] Patient received vitamin K, 1 unit [...] tertiary center. Patient waiting for bed at [facility] Acute pancreatitis CT abdomen showed mild [...] made to ensure accuracy, however, inadvertently computerized grader green meat mistakes may be present. Dr. Aldair Thorpe [...] Date:12/07/2023 08:00:00 AM Scheduled Provider: [facility] Type:CV Echo (FT) Appointment Date:12/07/2023 09:00:00 AM Scheduled Provider: [facility] Appointment Type:CV EKG (FT) Appointment Date:12/11/2023 08:00:00 AM Scheduled Provider: [facility] Appointment Type:CV Echo Stress (FT) Appointment Date:01/27/2024 09:40:00 AM Scheduled Provider:Loreta Padilla Location:[facility] Appointment Type: Open Future Scheduled Tests Laboratory* HgbA1c 07/24/23 * Qupsu-5-Wuaybrxmcro 09/01/23 * Ceruloplasmin 09/01/23 * Antimitochondrial Antibody, [...] [facility] Future Appointments Appointment Date:03/30/2023 11:00:00 AM Scheduled Provider:Teddy Hitchcock MD [facility] Appointment Type:WC Follow Up Visit (FT) [facility] note Future Appointments Appointment Date:04/16/2023 12:00:00 PM Scheduled Provider: [facility] Appoint[facility] Type:US Duplex Procedures (FT) Appointment Date:04/23/2023 10:15:00 AM Scheduled Provider:Teddy Hitchcock MD [facility] Appointment Type:WC Follow Up Visit (FT) Future Scheduled Tests Radiology* US PVR Lower EXT Complete Bilat 04/16/23 [facility] Future Appointments Appointment Date:04/23/2023 10:15:00 AM Scheduled Provider:Teddy Hitchcock MD [facility] Appointment Type:WC Follow Up Visit (FT) [facility] Plan note Future Appointments Appointment Date:04/30/2023 08:30:00 AM Scheduled Provider: [facility] Appoint[facility] Type:WC Assessment (FT) Appointment Date:05/07/2023 11:30:00 AM Scheduled Provider:Teddy Hitchcock MD [facility] Appointment Type:WC Follow Up Visit (FT) [facility] note Future Appointments Appointment Date:05/07/2023 11:30:00 AM Scheduled Provider:Teddy Hitchcock MD [facility] Appointment Type:WC Follow Up Visit (FT) [facility] note Future Appointments Appointment Date:05/14/2023 [...] Appointment Date:07/24/2023 07:40:00 AM Scheduled Provider:Loreta Padilla Location:[facility] Appointment Type:FM New Patient - Adult [facility] Future Appointments Appointment Date:07/24/2023 07:40:00 AM Scheduled Provider:Loreat Padilla Location:[facility] Appointment Type:FM New Patient - Adult Appointment Date:08/06/2023 09:30:00 AM Scheduled Provider:Teddy Hitchcock MD [facility] Type:WC Follow Up Visit (FT) [facility] Future Appointments Appointment Date:08/06/2023 09:30:00 AM Scheduled Provider:Teddy Hitchcock MD [facility] Appointment Type:WC Follow Up Visit (FT) Appointment Date:08/21/2023 07:20:00 AM Scheduled Provider:Loreta Padilla Location:[facility] Appointment Type: Open Future Scheduled Tests [...] Acid 07/24/23 * Vitamin B12 Level 07/24/23 [facility] Primary Care Evaluation + Plan note Future Appointments Appointment Date:08/21/2023 07:20:00 AM Scheduled Provider:Loreta Padilla Location:[facility] Appointment Type:FM Open Appointment Date:09/01/2023 12:00:00 PM Scheduled Provider:Mario Evans MD [facility]ment Type:[facility] New Patient Future Scheduled Tests Laboratory* HgbA1c [...] 12:00:00 PM Scheduled Provider:Carrol MULTANI, Mario Xiong Location:[facility] Appointment Type:BAD New Patient Appointment Date:10/28/2023 09:00:00 AM Scheduled Provider:Loreta Padilla Location:[facility] Appointment Type: Open Future Scheduled Tests [...] Acid 07/24/23 * Vitamin B12 Level 07/24/23 [facility] Primary Care Evaluation + Plan note Future Appointments Appointment Date:09/03/2023 09:00:00 AM Scheduled Provider: Location[facility] Appointment Type:US Abdominal/Pelvis () Appointment Date:10/28/2023 09:00:00 AM Scheduled Provider:Loreta Padilla Location:[facility] Appointment Type: Open Future Scheduled Tests Laboratory* HgbA1c 07/24/23 * Gijnl-1-Wgxzxmuaitr 09/01/23 * Ceruloplasmin 09/01/23 * Antimitochondrial Antibody, [...] B12 Level 07/24/23 Radiology* US Liver 09/03/23 [facility] Evaluation + Plan note Future Appointments Appointment Date:10/28/2023 09:00:00 AM Scheduled Provider:Loreta Padilla Location:[facility] Appointment Type: Open Future Scheduled Tests Laboratory* HgbA1c 07/24/23 * Pxkuv-7-Fsuhetwiqzv 09/01/23 * Ceruloplasmin 09/01/23 * Antimitochondrial Antibody, [...] Appointments Appointment Date:09/30/2023 10:15:00 AM Scheduled Provider: Location:[facility] Appointment Type:Surgery FT Appointment Date:10/01/2023 11:20:00 AM Scheduled Provider:Loreta Padilla Location:[facility] Appointment Type:FM Open Appointment Date:10/28/2023 09:00:00 AM Scheduled Provider:Loreta Padilla Location:[facility] Appointment Type: Open Future Scheduled Tests Laboratory* HgbA1c 07/24/23 * Rsuyu-1-Bndpehtyisf 09/01/23 * Ceruloplasmin 09/01/23 * Antimitochondrial Antibody, [...] Acid 07/24/23 * Vitamin B12 Level 07/24/23 [facility] Convenient Care Evaluation + Plan note Future Appointments Appointment Date:11/11/2023 03:00:00 PM Scheduled Provider: Location:[facility] Appointment Type:Surgery FT Appointment Date:11/13/2023 01:00:00 PM Scheduled Provider:Iglesia Dior MD [facility] [place] Appointment Type:Cardiology New Patient (FT) Appointment Date:12/07/2023 08:00:00 AM Scheduled Provider: [facility] Appointment Type:CV Echo (FT) Appointment Date:12/07/2023 09:00:00 AM Scheduled Provider: [facility] Appointment Type:CV EKG () Appointment Date:12/07/2023 09:30:00 AM Scheduled Provider: [facility] Appointment Type:CV Echo Stress () Appointment Date:01/27/2024 09:40:00 AM Scheduled Provider:Loreta Padilla Location:[facility] Appointment Type: Open Future Scheduled Tests Laboratory* HgbA1c 07/24/23 * Ratbm-4-Iedztplnglo 09/01/23 * Ceruloplasmin 09/01/23 * Antimitochondrial Antibody, [...] Contrast 12/07/23 * Echo Transthoracic Complete 12/07/23 [facility] Primary Care Evaluation + Plan note Future Appointments Appointment Date:01/27/2024 09:40:00 AM Scheduled Provider:Loreta Padilla Location:[facility] Appointment Type:FM Open Appointment Date:05/12/2024 03:15:00 PM Scheduled Provider:Carrol MULTANI, Mario Xiong Location[facility] Appointment Type:BADH Follow Up Future Scheduled Tests Laboratory* HgbA1c 07/24/23 * Odwyg-2-Aivizsuumha 09/01/23 * Ceruloplasmin 09/01/23 * Antimitochondrial Antibody, [...] Appointment Date:12/23/2023 10:00:00 AM Scheduled Provider:Loreta Padilla Location:[facility] Appointment Type: Hospital Follow Up w/TCM Appointment Date:12/25/2023 11:15:00 AM Scheduled Provider:Marc Liz MD [facility] Appointment Type:Cardiology New Patient () Appointment Date:01/27/2024 09:40:00 AM Scheduled Provider:Loreta Padilla Location:[facility] Appointment Type: Open Appointment Date:05/12/2024 03:15:00 PM Scheduled Provider:Mario Evans MD Location:[facility] App[facility]ment Type:[facility] Follow Up Diagnostic Tests Pending * Acute Hepatitis A B C Panel 12/21/23 * HCV Antibody RFX to Quant PCR 12/21/23 * HIV Screen 4th Generation wRfx 12/21/23 Future Scheduled Tests Laboratory* Zdsza-0-Pbfrdqsjvyh 09/01/23 * Ceruloplasmin 09/01/23 * Antimitochondrial Antibody, [...] Date:12/31/2023 08:00:00 AM Scheduled Provider: [facility] Appointment Type:US Abdominal/Pelvis () Appointment Date:01/06/2024 08:15:00 AM Scheduled Provider:Marc Liz MD [facility] [place] Appointment Type:Cardiology New Patient (FT) Appointment Date:01/27/2024 09:40:00 AM Scheduled Provider:Loreta Padilla Location:[facility] Appointment Type:FM Open Appointment Date:05/12/2024 03:15:00 PM Scheduled Provider:Mario Evans MD Location:[facility] Appointment Type:BAD Follow Up Future Scheduled Tests Laboratory* Yyfxz-5-Cqdqcaqvmcq 09/01/23 * Ceruloplasmin 09/01/23 * Antimitochondrial Antibody, [...] PT 09/01/23 Radiology* US Abdomen, Limited 12/31/23 [facility] Primary Care Evaluation + Plan note Future Appointments Appointment Date:01/06/2024 08:15:00 AM Scheduled Provider:Marc Liz MD [facility] Appointment Type:Cardiology New Patient (FT) Appointment Date:01/27/2024 09:40:00 AM Scheduled Provider:Loreta Padilla Location:[facility] Appointment Type:FM Open Appointment Date:05/12/2024 03:15:00 PM Scheduled Provider:Mraio Evans MD Location:[facility] Appointment Type:BAD Follow Up Future Scheduled Tests Laboratory* Kidga-6-Subevtudixp 09/01/23 * Ceruloplasmin 09/01/23 * Antimitochondrial Antibody, [...] Scheduled Provider:Barby MULTANI, Iglesia Mary [facility] [place] Appointment Type:Cardiology New Patient (FT) Appointment Date:04/29/2024 09:00:00 AM Scheduled Provider:Loreta Padilla Location:[facility] Appointment Type: Open Appointment Date:05/12/2024 03:15:00 PM Scheduled Provider:Mario Evans MD Location:[facility] Appointment Type:[facility] Follow Up Future Scheduled Tests Laboratory* Lkkjn-2-Mcrhxcocyuj 09/01/23 * Ceruloplasmin 09/01/23 * Antimitochondrial Antibody, [...] 07/24/23 * PT 07/24/23 * PT 09/01/23 [facility] Primary Care Evaluation + Plan note Future Appointments Appointment Date:02/22/2024 09:15:00 AM Scheduled Provider:Marc Liz MD [facility] App[facility] Type:Cardiology New Patient (FT) Appointment Date:02/25/2024 09:00:00 AM Scheduled Provider:Ella Barahona [facility] Appoint[facility] Type:ONC Office Visit New 45 (FT) Appointment Date:04/29/2024 09:00:00 AM Scheduled Provider:Loreta Padilla Location:[facility] Appointment Type:FM Open Appointment Date:05/12/2024 03:15:00 PM Scheduled Provider:Mario Evans MD Location:[facility] Appointment Type:BADH Follow Up Future Scheduled Tests Laboratory* Prrlj-1-Gwofdhxteec 09/01/23 * Ceruloplasmin 09/01/23 * Antimitochondrial Antibody, [...] 09:20:00 AM Scheduled Provider:Ella Barahona [facility] App[facility] Type:ONC Office Visit 20 (FT) Appointment Date:03/16/2024 08:15:00 AM Scheduled Provider:Marc Liz MD [facility] Type:Cardiology New Patient (FT) Appointment Date:04/29/2024 09:00:00 AM Scheduled Provider:Loreta Padilla Location:[facility] Appointment Type: Open Appointment Date:05/12/2024 03:15:00 PM Scheduled Provider:Mario Evans MD Location[facility] Appointment Type:BADH Follow Up Future Scheduled Tests Laboratory* Hgtwt-6-Uigjtfsgksh 09/01/23 * Ceruloplasmin 09/01/23 * Antimitochondrial Antibody, [...] 09:20:00 AM Scheduled Provider:Ella Barahona [facility] Type:ONC Office Visit 20 (FT) Appointment Date:03/17/2024 02:15:00 PM Scheduled Provider:Marc Liz MD [facility] Type:Cardiology New Patient (FT) Appointment Date:04/29/2024 09:00:00 AM Scheduled Provider:Loreta Padilla Location:[facility] Appointment Type:FM Open Appointment Date:05/12/2024 03:15:00 PM Scheduled Provider:Mario Evans MD Location:[facility] App[facility]ment Type:[facility] Follow Up Diagnostic Tests Pending * Haptoglobin 03/02/24 * Copper Level 03/02/24 Future Scheduled Tests Laboratory* Myltk-2-Wyoswdwiadp 09/01/23 * Ceruloplasmin 09/01/23 * Antimitochondrial Antibody, [...] AM Scheduled Provider:Kavon Lu DO [facility] App[facility] Type:ONC Office Visit 20 (FT) Appointment Date:04/29/2024 09:00:00 AM Scheduled Provider:Loreta Padilla Location:[facility] Appointment Type:FM Open Appointment Date:05/12/2024 03:15:00 PM Scheduled Provider:Mario Evans MD Location:[facility] Appointment Type:[facility] Follow Up Future Scheduled Tests Laboratory* Ivgus-6-Jovmcksqptu 09/01/23 * Ceruloplasmin 09/01/23 * Antimitochondrial Antibody, [...] AM Scheduled Provider:Kavon Lu DO [facility] App[facility] Type:ONC Office Visit 20 (FT) Appointment Date:04/29/2024 09:00:00 AM Scheduled Provider:Loreta Padilla Location:[facility] Appointment Type: Open Appointment Date:05/12/2024 03:15:00 PM Scheduled Provider:Mario Evans MD Location:[facility] Appointment Type:BADH Follow Up Future Scheduled Tests Laboratory* Vujdw-4-Qaqanciteob 09/01/23 * Ceruloplasmin 09/01/23 * Antimitochondrial Antibody, [...] PM Scheduled Provider:Kavon Lu DO [facility] App[facility] Type:ONC Office Visit 20 (FT) Appointment Date:05/12/2024 03:15:00 PM Scheduled Provider:Carrol MULTANI, Mario Xiong Location:[facility] Appointment Type:BADH Follow Up Appointment Date:07/29/2024 03:00:00 PM Scheduled Provider:Loreta Padilla Location:[facility] Appointment Type: Open Future Scheduled Tests Laboratory* Yiiwy-3-Xvlepwjmgxv 09/01/23 * Ceruloplasmin 09/01/23 * Antimitochondrial Antibody, [...] * PT 09/01/23 * Reticulocyte Count 04/27/24 [facility] Primary Care Evaluation + Plan note Future Appointments Appointment Date:05/11/2024 09:00:00 AM Scheduled Provider:Kavon Lu DO [facility] App[facility] Type:ONC Office Visit 20 (FT) Appointment Date:05/12/2024 03:15:00 PM Scheduled Provider:Mario Evans MD Location:[facility] Appointment Type:[facility] Follow Up Appointment Date:07/29/2024 03:00:00 PM Scheduled Provider:Loreta Padilla Location:[facility] Appointment Type:FM Open Diagnostic Tests Pending * Haptoglobin 05/06/24 Future Scheduled Tests Laboratory* Ngize-9-Klxhrpqhsam 09/01/23 * Ceruloplasmin 09/01/23 * Antimitochondrial Antibody, [...] Date:05/12/2024 03:15:00 PM Scheduled Provider:Mario Evans MD Location:[facility] Appointment Type:[facility] Follow Up Appointment Date:07/14/2024 02:40:00 PM Scheduled Provider:Kavon Lu DO [facility] App[facility] Type:ONC Office Visit 20 (FT) Appointment Date:07/29/2024 03:00:00 PM Scheduled Provider:Loreta Padilla Location:[facility] Appointment Type:FM Open Future Scheduled Tests Laboratory* Antibody Screen 07/11/24 * Cztcr-2-Ixvvgrednxd 09/01/23 * Ceruloplasmin 09/01/23 * Antimitochondrial Antibody, [...] Date:05/24/2024 10:30:00 AM Scheduled Provider: [facility] Appointment Type:US Abdominal/Pelvis (FT) Appointment Date:06/09/2024 01:15:00 PM Scheduled Provider:Mario Evans MD Location:[facility] Appointment Type:BADH Follow Up Appointment Date:07/14/2024 02:40:00 PM Scheduled Provider:Kavon Lu DO [facility] App[facility] Type:ONC Office Visit 20 (FT) Appointment Date:07/29/2024 03:00:00 PM Scheduled Provider:Loreta Padilla Location:[facility] Appointment Type: Open [facility] Scheduled Tests Laboratory* Antibody Screen 07/11/24 * Caeyj-8-Yyxszhatzdl 09/01/23 * Aektt-0-Yxfnstnmlnh 9/5/24 * Ceruloplasmin 09/01/23 * Ceruloplasmin 05/12/24 [...] * Transferrin 07/11/24 Radiology* US Liver 05/24/24 [facility] Dig[facility]ive Health Evaluation + Plan note Future Appointments Appointment Date:07/14/2024 02:40:00 PM Scheduled Provider:Kavon Lu DO [facility] Appoint[facility] Type:ONC Office Visit 20 (FT) Appointment Date:07/29/2024 03:00:00 PM Scheduled Provider:Loreta Padilla Location:[facility] Appointment Type:FM Open Appointment Date:11/18/2024 08:15:00 AM Scheduled Provider: Location:[facility] Appointment Type:Surgery FT Appointment Date:11/21/2024 09:15:00 AM Scheduled Provider:Mario Evans MD [place] [facility] Appointment Type:[facility] Follow Up Future Scheduled Tests Laboratory* Antibody [...] * Transferrin 07/11/24 Radiology* US Liver 11/05/24 [facility] Evaluation + Plan note Future Appointments Appointment Date:07/14/2024 02:40:00 PM Scheduled Provider:Kavon Lu DO [facility] Type:ONC Office Visit 20 (FT) Appointment Date:07/29/2024 03:00:00 PM Scheduled Provider:Loreta Padilla Location:[facility] Appointment Type:FM Open Appointment Date:11/18/2024 08:15:00 AM Scheduled Provider: Location:[facility] Appointment Type:Surgery FT Appointment Date:11/21/2024 09:15:00 AM Scheduled Provider:Mario vEans MD [place] App[place]ment Type:BAD Follow Up Diagnostic [...] Appointment Date:08/19/2024 03:20:00 PM Scheduled Provider:Loreta Padilla Location:[facility] Appointment Type: Open Appointment Date:09/29/2024 01:20:00 PM Scheduled Provider:Kavon Lu DO [facility] Appoint[facility] Type:ONC Office Visit 20 (FT) Appointment Date:11/18/2024 08:15:00 AM Scheduled Provider: Location:[facility] Appointment Type:Surgery FT Appointment Date:11/21/2024 09:15:00 AM Scheduled Provider:Mario Evans MD [place] App[facility]ment Type:[facility] Follow Up Future Scheduled Tests Laboratory* MELLISA [...] Date:06/09/2024 01:15:00 PM Scheduled Provider:Mario Evans MD [place] Appointment Type:BADH Follow Up Appointment Date:07/14/2024 02:40:00 PM Scheduled Provider:Kavon Lu DO [facility] Appoint[facility] Type:ONC Office Visit 20 (FT) Appointment Date:07/29/2024 03:00:00 PM Scheduled Provider:Loreta Padilla Location:[facility] Appointment Type: Open Diagnostic Tests Pending * Oqfru-3-Aacadkinmop 05/24/24 * GEOVANNA w/Reflex if POS 05/24/24 * Antimitochondrial Antibody, Quantitative 05/24/24 * Ceruloplasmin 05/24/24 * Acute Hepatitis A B C Panel 05/24/24 * Alpha Fetoprotein Tumor Marker 05/24/24 * Hepatitis B Surface Antibody 05/24/24 * Hepatitis B Surface Antigen 05/24/24 * Hepatitis A Virus (HAV) Antibody, Total 05/24/24 * IgG, Quant. 05/24/24 * Smooth Muscle Antibody Screen 05/24/24 * Qyqpp-6-Wlagopinwsz 05/24/24 * GEOVANNA w/Reflex if POS 05/24/24 [...] Appointment Date:11/15/2024 07:40:00 AM Scheduled Provider:Vic Carrion Location:[facility] Appointment Type: Open Appointment Date:11/18/2024 08:15:00 AM Scheduled Provider: Location:[facility] Appointment Type:Surgery FT Appointment Date:11/21/2024 09:15:00 AM Scheduled Provider:Mario Evans MD [place] Appointment Type:BADH Follow Up Future [...] * PT 07/24/23 Radiology* US Liver 11/05/24 [facility] Primary Care Evaluation + Plan note Future Appointments Appointment Date:09/29/2024 01:20:00 PM Scheduled Provider:Kavon Lu DO Location:.[facility] Appointment Type:ONC Office Visit 20 (FT) Appointment Date:10/05/2024 09:00:00 AM Scheduled Provider:Vic Carrion Location:[facility] Appointment Type:FM Open Appointment Date:11/18/2024 08:15:00 AM Scheduled Provider: Location:[facility] Appointment Type:Surgery FT Appointment Date:11/21/2024 09:15:00 AM Scheduled Provider:Mario Evans MD [place] Appointment Type:[facility] Follow Up Diagnostic Tests Pending * MELLISA [...] 09:00:00 AM Scheduled Provider:Vic Carrion Location:[facility] Appointment Type:FM Open Appointment Date:11/11/2024 08:30:00 AM Scheduled Provider: [facility] Appointment Type:US Abdominal/Pelvis (FT) Appointment Date:11/18/2024 08:15:00 AM Scheduled Provider: Location:[facility] Appointment Type:Surgery FT Appointment Date:11/21/2024 09:15:00 AM Scheduled Provider:Mario Evans MD [place] Appointment Type:BADH Follow Up Appointment Date:09/28/2025 02:40:00 PM Scheduled Provider:Kavon Lu DO [facility] Appoint[facility] Type:ONC Office Visit 20 (FT) Future [...] Date:11/11/2024 08:30:00 AM Scheduled Provider: [facility] Appointment Type:US Abdominal/Pelvis (FT) Appointment Date:11/18/2024 08:15:00 AM Scheduled Provider: Location:[facility] Appointment Type:Surgery FT Appointment Date:11/21/2024 09:15:00 AM Scheduled Provider:Mario Evans MD Location[place] Appointment Type:BADH Follow Up Appointment Date:04/07/2025 08:40:00 AM Scheduled Provider:Vic Carrion Location:[facility] Appointment Type:FM Open Appointment Date:09/28/2025 02:40:00 PM Scheduled Provider:Kavon Lu DO [facility] Appointment Type:ONC Office Visit 20 (FT) Future [...] B12 Level 09/25/25 Radiology* US Liver 11/11/24 [facility] Primary Care Evaluation + Plan note Future Appointments Appointment Date:11/11/2024 08:30:00 AM Scheduled Provider: [facility] Appointment Type:US Abdominal/Pelvis (FT) Appointment Date:11/18/2024 08:15:00 AM Scheduled Provider: Location:[facility] Appointment Type:Surgery FT Appointment Date:11/21/2024 09:15:00 AM Scheduled Provider:Mario Evans MD Location[place] Appointment Type:BADH Follow Up Appointment Date:04/07/2025 08:40:00 AM Scheduled Provider:Vic Carrion Location:[facility] Appointment Type:FM Open Appointment Date:09/28/2025 [...] AM Scheduled Provider:Sadie Loco PA-C [facility] Appointment Type:Pain Management - Follow Up (FT) Appointment Date:11/21/2024 09:15:00 AM Scheduled Provider:Mario Evans MD Location[place] Appointment Type:BADH Follow Up Appointment Date:04/07/2025 08:40:00 AM Scheduled Provider:Vic Carrion Location:[facility] Appointment Type:FM Open Appointment Date:09/28/2025 02:40:00 PM Scheduled Provider:Kavon Lu DO [facility] Appointment Type:ONC Office Visit 20 (FT) Future [...] Appointment Date:04/07/2025 08:40:00 AM Scheduled Provider:Vic Carrion Location:[facility] Appointment Type: Open Appointment Date:09/28/2025 02:40:00 [...] AM Scheduled Provider:Sadie Loco PA-C [facility] Appointment Type:Pain Management - Follow Up (FT) Appointment Date:04/07/2025 08:40:00 AM Scheduled Provider:Vic Carrion Location:[facility] Appointment Type:FM Open Appointment Date:09/28/2025 02:40:00 PM Scheduled Provider:Kavon Lu DO [facility] Appointment Type:ONC Office Visit 20 (FT) Future [...] cholecystitis or obstruction [facility] Diagnosis Coagulation defect (HCC)- Primary Other and unspecified coagulation defects Alcoholic fatty liver Hyperbilirubinemia Disorders of bilirubin excretion Alcoholic hepatitis, unspecified whether ascites present (HCC) [facility] Diagnosis 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, unspecified site [facility] Diagnosis Lymphedema- Primary Other noninfectious lymphedema [facility] Diagnosis Other chronic pain- Primary Spinal cord stimulator status [facility] Narrative - Reported* Type Description Date Medical History anxiety Medical History LIVER ISSUES Surgical History fx jaw Hospitalization History LIVER ISSUES 2021 [employer] Other Hospital course Narrative No data available for this section [facility] No data available for this section [facility] Discharge instructions* Attachments The following attachments cannot be sent through Care Everywhere. * Moderate Sedation in Adults Discharge Instructions (Vietnamese) * Liver Biopsy Discharge Instructions (Vietnamese) [facility]ructionsNot on filedocumented in this [facility] SystemInstructionsNot on filedocumented in this encounterProNewark [facility] SystemInstructionsNot on filedocumented in this encounterProNewark Hospital SystemInstructionsNot on filedocumented in this encounterOhio[facility] No data available for this section [facility] for [facility] (narrative)* Tests/Procedures (Routine) - Authorized Specialty Diagnoses / Procedures Referred By Contact Referred To Contact Cardiovascular Testing Diagnoses Bilateral swelling of feet and ankles Tanvir Black MD [address] [facility] [place] [id number] [facility] CARD NON INVASIVE [address] [place] [address] Referral ID Status Reason Start Date Expiration Date V isits Requested Visits Authorized [id number] Authorized 03/13/2022 03/13/2023 1 1 Scheduling Instructions [...] call the [facility] at [phone] ([phone]) if you are unable to keep [...] SpO2 100 %. [facility] Narrative* Auth/Cert Specialty Diagnoses / Procedures Referred By Taya hope Referred To Contact Case Management Diagnoses Acute Liver Failure Procedures [employer] [place] [address] Phone: [phone] [employer] [place] [address] Phone: [phone] Referral ID Status Reason Start Date Expiration Date Visits Re quested Visits Authorized [id number] 3 3 [facility] for visit Narrative* Tests/Procedures (Routine) - Closed Specialty Diagnoses / Procedures Referred By Contact Referred To Contact Cardiovascular Testing Diagnoses Bilateral swelling of feet and ankles Tanvir Black MD [address] [place], [place] [address] [place] [address] [facility] CARD NON INVASIVE [facility] [place] [address] Referral ID Status Reason Start Date Expiration Date Visits Re quested Visits Authorized [id number] Closed 03/13/2022 03/13/2023 1 1 [facility] for visit Narrative* Neuropsych Testing (Routine) - Closed Specialty Diagnoses / Procedures Referred By Taya hope Referred To Contact Neurology Diagnoses Other specified mononeuropathies of unspecified lower limb Procedures [place] NEUROPSYCHOLOGICAL TST EVAL PHYS/QHP EA ADDL HR Evelio Carr, DO [address] [place] [address] Phone: tel: fax: Alex Margoth, DO [address] [place] [address] Phone: tel: fax: Referral ID Status Reason Start Date Expiration Date V isits Requested Visits Authorized [id number] Closed Specialty Services Required 01/13/2025 07/12/2025 1 1 [facility] Reason for Referral Specialty Diagnoses / Procedures Referred By Contac t Referred To Contact Diagnoses Alcoholic fatty liver Hyperbilirubinemia Alcoholic hepatitis, unspecified whether ascites present (HCC) Procedures XA HEPATIC VENOGRAM W/ HEMODYN (CHRISTIANO) Marcello Ibanez MD [address] [place] [address] S INTERVENTIONAL RAD [address] [place] [address] Referral ID Status Reason Start Date Expiration Date Visits Re quested Visits Authorized [id number] Closed 01/20/2023 01/20/2024 1 1 Specialty Diagnoses / Procedures Referred By Contac t Referred To Contact Radiology Diagnoses Alcoholic cirrhosis of liver without ascites (HCC) Procedures XA TRANSJUGULAR LIVER BIOPSY (CHRISTIANO) XA INTERVENTIONAL RADIOLOGY PROCEDURE SERVICE Marcello Ibanez MD [address] [place] [address] [facility] [address] [place] [address] Referral ID Status Reason Start Date Expiration Date V isits Requested Visits Authorized [id number] Authorized 10/27/2022 10/27/2023 1 1 Specialty Diagnoses / Procedures Referred By Contac t Referred To Contact Radiology Diagnoses Rib pain Procedures XR RIBS LT UNILAT W/PA CHEST Theo Burks MD [address] [place] [address] [place] [address] S DIAGNOSTIC RADIOLOGY [address] [place] [address] [place] [address] Referral ID Status Reason Start Date Expiration Date V isits Requested Visits Authorized [id number] Authorized 12/15/2022 12/15/2023 1 1 Specialty Diagnoses / Procedures Referred By Contac t Referred To Contact Diagnoses Theo Moilna MD [address] [place] [address] Referral ID Status Reason Start Date Expiration Date V isits Requested Visits Authorized [id number] Pending Review 3 3 Specialty Diagnoses / Procedures Referred By Contac t Referred To Contact Diagnoses Iron deficiency anemia, unspecified iron deficiency anemia type Alcoholic cirrhosis, unspecified whether ascites present (HCC) Alcoholic cirrhosis of liver without ascites (HCC) Tanvir Black MD [address] [place] [address] [place] [address] Referral ID Status Reason Start Date Expiration Date Visits Re quested Visits Authorized [id number] Closed 3 3 Specialty Diagnoses / Procedures Referred By Contac t Referred To Contact Radiology Diagnoses Alcoholic cirrhosis of liver without ascites (HCC) Procedures XA TRANSJUGULAR LIVER BIOPSY (CHRISTIANO) XA INTERVENTIONAL RADIOLOGY PROCEDURE SERVICE Marcello Ibanez MD [address] [place] [address] [facility] [address] [place] [address] Referral ID Status Reason Start Date Expiration Date V isits Requested Visits Authorized [id number] Authorized 10/27/2022 10/27/2023 1 1 Specialty Diagnoses / Procedures Referred By Contac t Referred To Contact Diagnoses Urinary tract infection without hematuria, site unspecified Leg swelling Tanvir Black MD [address] [place] [address] [place] [address] [facility] [address] [place] [address] Referral ID Status Reason Start Date Expiration Date V isits Requested Visits Authorized [id number] Authorized 08/21/2022 02/17/2023 3 3 Scheduling Instructions Please call Internal Medicine at to schedule an appointment. Specialty Diagnoses / Procedures Referred By Contac t Referred To Contact Radiology Diagnoses Lower extremity edema Procedures US LEG RIGHT VENOUS + DOPPLER Tanvir Black MD [address] [facility] [place] [address] [facility] [address] [place] [address] Referral ID Status Reason Start Date Expiration Date Visits Re quested Visits Authorized [id number] Closed 08/14/2022 08/14/2023 1 1 Specialty Diagnoses / Procedures Referred By Contac t Referred To Contact Radiology Diagnoses Iron deficiency anemia, unspecified iron deficiency anemia type Alcoholic cirrhosis, unspecified whether ascites present (HCC) Procedures US HEP PORT SPLEN VEIN + DOPPLER Saskia Madison, [employer] BASIS ADMINISTRATOR-MERCHANDISE HANDLER [address] [facility] [place] [address] S ULTRASOUND [address] [place] [address] Referral ID Status Reason Start Date Expiration Date V isits Requested Visits Authorized [id number] Authorized 08/14/2022 08/14/2023 1 1 Specialty Diagnoses / Procedures Referred By Contac t Referred To Contact Radiology Diagnoses Iron deficiency anemia, unspecified iron deficiency anemia type Alcoholic cirrhosis, unspecified whether ascites present (HCC) Procedures US LIVER/GALL BLADDER/PANCREAS Saskia Madison, [employer] BASIS ADMINISTRATOR-MERCHANDISE HANDLER [address] [place] [address] [place] [address] S ULTRASOUND [address] [place] [address] Referral ID Status Reason Start Date Expiration Date V isits Requested Visits Authorized [id number] Authorized 08/14/2022 08/14/2023 1 1 Specialty Diagnoses / Procedures Referred By Contac t Referred To Contact Afua Umanzor MD [address] [place] [address] Referral ID Status Reason Start Date Expiration Date V isits Requested Visits Authorized [id number] Pending Review 3 3 Referral ID Status Reason Start Date Expiration Date V isits Requested Visits Authorized [id number] Pending Review 3 3 Specialty Diagnoses / Procedures Referred By Contac t Referred To Contact Gastroenterology Diagnoses Alcoholic cirrhosis of liver without ascites (HCC) Afua Umanzor MD [address] [place] [address] [facility] [address] [place] [address] Referral ID Status Reason Start Date Expiration Date V isits Requested Visits Authorized [id number] Authorized 01/17/2022 01/17/2023 3 3 Scheduling Instructions [...] antibody (HCC) Thrombocytopenia (HCC) Afua Umanzor MD [address] [place] [address] [facility] H[facility] [address] [place] [address] Referral ID Status Reason Start Date Expiration Date V isits Requested Visits Authorized [id number] Authorized 01/17/2022 01/17/2023 3 3 Scheduling Instructions Please call the [facility] at [phone] to schedule an appointment if one was not made for you today. Specialty Diagnoses / Procedures Referred By Taya t Referred To Contact Diagnoses Tear of left biceps muscle, initial encounter Afua Umanzor MD [address] [place] [address] [facility] [address] [place] [address] Referral ID Status Reason Start Date Expiration Date V isits Requested Visits Authorized [id number] Authorized 01/17/2022 01/17/2023 3 3 Scheduling Instructions Please call the [facility] at [phone] to schedule an appointment if one was not made for you today. Question Answer Adult patient to be evaluated for: Elbow - Bicep Tear - Left [5] Comments No prior visits in PM&R No prior visits in Orthopedics Specialty Diagnoses / Procedures Referred By Contac t Referred To Contact Radiology Procedures US HEP PORT SPLEN VEIN + DOPPLER Ccp [address] [address] [facility] [address] [place] [address] Referral ID Status Reason Start Date Expiration Date Visits Re quested Visits Authorized [id number] Closed 01/10/2022 01/10/2023 1 1 Specialty Diagnoses / Procedures Referred By Contac t Referred To Contact Radiology Procedures US SPLEEN US SPLEEN Ccp [address] [address] [facility] [address] [place] [address] Referral ID Status Reason Start Date Expiration Date Visits Re quested Visits Authorized [id number] Closed 01/09/2022 01/09/2023 1 1 Specialty Diagnoses / Procedures Referred By Contac t Referred To Contact Radiology Procedures XR ABDOMEN 1 VIEW AP Ccp [address] [address] [facility] DIAGNOSTIC RADIOLOGY [address] [place] [address] [place] [address] Referral ID Status Reason Start Date Expiration Date Visits Re quested Visits Authorized [id number] Closed 01/09/2022 01/09/2023 1 1 Specialty Diagnoses / Procedures Referred By Contac t Referred To Contact Radiology Procedures XR ORBITS Ccp [address] [address] [facility] RADIOLOGY [address] [place] [address] [place] [address] Referral ID Status Reason Start Date Expiration Date Visits Re quested Visits Authorized [id number] Closed 01/08/2022 01/08/2023 1 1 Specialty Diagnoses / Procedures Referred By Contac t Referred To Contact Radiology Procedures US ASCITES SURVEY 4 QUADRANTS Ccp [address] [address] [facility] [address] [place] [address] Referral ID Status Reason Start Date Expiration Date Visits Re quested Visits Authorized [id number] Closed 01/08/2022 01/08/2023 1 1 Specialty Diagnoses / Procedures Referred By Contac t Referred To Contact Radiology Procedures US LIVER/GALL BLADDER/PANCREAS Ccp [address] [place] [address] [place] [address] [facility] [address] [place] [address] Referral ID Status Reason Start Date Expiration Date Visits Re quested Visits Authorized [id number] Closed 01/08/2022 01/08/2023 1 1 Specialty Diagnoses / Procedures Referred By Contac t Referred To Contact Radiology Procedures XRAY CHEST IMAGE IMPORT(CHRISTIANO) Ivy Chua MD [address] [place] [address] [facility] DI[facility]NO[facility] RADIOLOGY [address] [place] [address] [place] [address] Referral ID Status Reason Start Date Expiration Date Visits Re quested Visits Authorized [id number] Closed 01/08/2022 01/08/2023 1 1 Specialty Diagnoses / Procedures Referred By Contac t Referred To Contact Radiology Procedures CT BODY IMAGE IMPORT(CHRISTIANO) DOWNLOAD POWERSHARE IMAGES TO [facility] Ivy Chua MD [address] [place] [address] [facility] DIAGNOSTIC RADIOLOGY [address] [place] [address] Dr [place] [id number] Referral ID Status Reason Start Date Expiration Date Visits Re quested Visits Authorized [id number] Closed 01/08/2022 01/08/2023 1 1 Specialty Diagnoses / Procedures Referred By Contac t Referred To Contact Radiology Procedures XR HUMERUS LEFT Ccp 3 [place] [id number] [facility] RADIOLOGY [address] [place] [address] [place] [address] Referral ID Status Reason Start Date Expiration Date Visits Re quested Visits Authorized [id number] Closed 01/08/2022 01/08/2023 1 1 Specialty Diagnoses / Procedures Referred By Contac t Referred To Contact Radiology Procedures XR ELBOW LEFT MINIMUM 3 VIEWS Ccp [address] [place], [place] [id number] [facility] RADIOLOGY [address] [place] [address] [place] [address] Referral ID Status Reason Start Date Expiration Date Visits Re quested Visits Authorized [id number] Closed 01/08/2022 01/08/2023 1 1 Advance Directives [...] Transdermal, EVERY 7 DAYS, First dose on [facility] 01/09/22 at 1400, Until Discontinued 1446 [...] Maher Rn, RN)2124 (Given - Provider: Farheen Duldey, IRENA) 0359 (Given - Provider: Jose David [...] Oral, STAT, 1 dose, On Thu08/15/22 at 7537 1502 (Given - Provid er: Mercedes Zapata RN) Reason for Visit (unrecogniz ed section and content) Reason Onset Date Comments Prior Authorization 01/21/2022 Reason Onset Date Comments Specialty Pharmacy Referral 02/11/2022 [facility] referral- no PA needed Specialty Diagnoses / Procedures Referred By Contac t Referred To Contact Hematology Diagnoses 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) Thrombocytopenia (HCC) Afua Umanzor MD [address] [place] [address] [facility] [address] [place] [address] Referral ID Status Reason Start Date Expiration Date V isits Requested Visits Authorized [id number] Authorized 01/17/2022 01/17/2023 3 3 Reason Comments Blood test Reason Comments Monitoring/follow-up Fatigue nausea and vomiting Reason Comments AIHA On [employer] Cirrhosis/other liver disease Reason Comments New patient, to establish relationship Specialty Diagnoses / Procedures Referred By Contac t Referred To Contact Gastroenterology Diagnoses Alcoholic cirrhosis of liver without ascites (HCC) Tanvir Black MD [address] [place] [address] [facility] [address] [place] [address] Referral ID Status Reason Start Date Expiration Date V isits Requested Visits Authorized [id number] Authorized 05/06/2022 05/06/2023 3 3 Reason Comments [...] INTERVENTIONAL RADIOLOGY PROCEDURE SERVICE Marcello Ibanez MD [address] [place] [address] [facility] [address] [place] [address] Referral ID Status Reason Start Date Expiration Date V isits Requested Visits Authorized [id number] Authorized 10/27/2022 10/27/2023 1 1 Reason Comments abnormal CT angio abd aorta runoff, r/o PAD, - DVT, normal Reason Comments ANGIO RLE 04/26 Pain level 4/10 Care Team (unrecognized sect ion and content) Kindergarten Instructional Assistant Relationship Specialty Start Date End Date Theo Burks MD [address] [place] [address] [address] [place], [place] [id number] PCP - General Family Medicine 08/25/22 Kindergarten Instructional Assistant Relationship Specialty Start Date End Date Theo Burks MD [address] [place] [address] [address] [place], [place] [id number] PCP - General Family Medicine 08/25/22 Kindergarten Instructional Assistant Relationship Specialty Start Date End Date Theo Burks MD [address] [place] [address] [address] [place], [place] [id number] PCP - General Family Medicine 08/25/22 Kindergarten Instructional Assistant Relationship Specialty Start Date End Date Theo Burks MD [address] [place] [address] [place] [address] PCP - General Family Medicine 08/25/22 Kindergarten Instructional Assistant Relationship Specialty Start Date End Date Theo Burks MD [address] [place] [address] [address] [place], [place] [id number] PCP - General Family Medicine 08/25/22 Abbey Alvarez MD [address] [place] [address] [place] [address] Fellow Gastroenterology 09/13/22 Saskia Madison, LIBAN-MERCHANDISE HANDLER [address] [place] [address] [place] [address] DATA ENTRY MANAGER Gastroenterology 09/13/22 Kindergarten Instructional Assistant Relationship Specialty Start Date End Date Theo Burks MD [address] [place] [address] [place] [address] PCP - General Family Medicine 08/25/22 Abbey Alvarez MD [address] [place] [address] [place] [address] Fellow Gastroenterology 09/13/22 Saskia Madison, LIBAN-MERCHANDISE HANDLER [address] [place] [address] [place] [address] DATA ENTRY MANAGER Gastroenterology 09/13/22 Kindergarten Instructional Assistant Relationship Specialty Start Date End Date Theo Burks MD [address] [place] [address] [place] [address] PCP - General Family Medicine 08/25/22 Abbey Alvarez MD [address] [place] [address] [place] [address] Fellow Gastroenterology 09/13/22 Saskia Madison, LIBAN-MERCHANDISE HANDLER [address] [place] [address] [place] [address] DATA ENTRY MANAGER Gastroenterology 09/13/22 Kindergarten Instructional Assistant Relationship Specialty Start Date End Date Theo Burks MD [address] [place] [address] [place] [address] PCP - General Family Medicine 08/25/22 Abbey Alvarez MD [address] [place] [address] [place] [address] Fellow Gastroenterology 09/13/22 Saskia Madison APRN-MERCHANDISE HANDLER [address] [place] [address] [place] [address] DATA ENTRY MANAGER Gastroenterology 09/13/22 Kindergarten Instructional Assistant Relationship Specialty Start Date End Date Theo Burks MD [address] [place] [address] [place] [address] PCP - General Family Medicine 08/25/22 Abbey Alvarez MD [address] [place] [address] [place] [address] Fellow Gastroenterology 09/13/22 Saskia Madison APRN-MERCHANDISE HANDLER [address] [place] [address] [place] [address] DATA ENTRY MANAGER Gastroenterology 09/13/22 Kindergarten Instructional Assistant Relationship Specialty Start Date End Date Theo Burks MD [address] [place] [address] [place] [address] PCP - General Family Medicine 08/25/22 Abbey Alvarez MD [address] [place] [address] [place] [address] Fellow Gastroenterology 09/13/22 Saskia Madison APRN-MERCHANDISE HANDLER [address] [place] [address] [place] [address] DATA ENTRY MANAGER Gastroenterology 09/13/22 Kindergarten Instructional Assistant Relationship Specialty Start Date End Date Theo Burks MD [address] [place] [address] [place] [address] PCP - General Family Medicine 08/25/22 Abbey Alvarez MD [address] [place] [address] [place] [address] Fellow Gastroenterology 09/13/22 Saskia Madison SAP BASIS ADMINISTRATOR-MERCHANDISE HANDLER [address] [place] [address] [place] [address] DATA ENTRY MANAGER Gastroenterology 09/13/22 Kindergarten Instructional Assistant Relationship Specialty Start Date End Date Theo Burks MD [address] [place] [address] [place] [address] PCP - General Family Medicine 08/25/22 Abbey Alvarez MD [address] [place] [address] [place] [address] Fellow Gastroenterology 09/13/22 Saskia Madison, SAP BASIS ADMINISTRATOR-MERCHANDISE HANDLER [address] [place] [address] [place] [address] DATA ENTRY MANAGER Gastroenterology 09/13/22 Kindergarten Instructional Assistant Relationship Specialty Start Date End Date Theo Burks MD [address] [place] [address] [place] [address] PCP - General Family Medicine 08/25/22 Abbey Alvarez MD [address] [place] [address] [place] [address] Fellow Gastroenterology 09/13/22 Saskia Madison, SAP BASIS ADMINISTRATOR-MERCHANDISE HANDLER [address] [place] [address] [place] [address] DATA ENTRY MANAGER Gastroenterology 09/13/22 Kindergarten Instructional Assistant Relationship Specialty Start Date End Date Theo Burks MD [address] [place] [address] [place] [address] PCP - General Family Medicine 08/25/22 Abbey Alvarez MD [address] [place] [address] [place] [address] Fellow Gastroenterology 09/13/22 Saskia Madison, SAP BASIS ADMINISTRATOR-MERCHANDISE HANDLER [address] [place] [address] [place] [address] DATA ENTRY MANAGER Gastroenterology 09/13/22 Marcello Ibanez MD [address] [place] [address] [place] [address] Fellow Gastroenterology 11/08/22 Kindergarten Instructional Assistant Relationship Specialty Start Date End Date Theo Burks MD [address] [place] [address] [place] [address] PCP - General Family Medicine 08/25/22 Abbey Alvarez MD [address] [place] [address] [place] [address] Fellow Gastroenterology 09/13/22 Saskia Madison, SAP BASIS ADMINISTRATOR-MERCHANDISE HANDLER [address] [place] [address] [place] [address] DATA ENTRY MANAGER Gastroenterology 09/13/22 Marcello Ibanez MD [address] [place] [address] Fellow Gastroenterology 11/08/22 Kindergarten Instructional Assistant Relationship Specialty Start Date End Date Theo Burks MD [address] [place] [address] [place] [address] PCP - General Family Medicine 08/25/22 Abbey Alvarez MD [address] [place] [address] [place] [address] Fellow Gastroenterology 09/13/22 Saskia Madison, SAP BASIS ADMINISTRATOR-MERCHANDISE HANDLER [address] [place] [address] [place] [address] DATA ENTRY MANAGER Gastroenterology 09/13/22 Marcello Ibanez MD [address] [place] [address] Fellow Gastroenterology 11/08/22 Kindergarten Instructional Assistant Relationship Specialty Start Date End Date Theo Burks MD [address] [place] [address] [place] [address] PCP - General Family Medicine 08/25/22 Abbey Alvarez MD [address] [place] [address] [place] [address] Fellow Gastroenterology 09/13/22 Saskia Madison APRN-MERCHANDISE HANDLER [address] [place] [address] [place] [address] DATA ENTRY MANAGER Gastroenterology 09/13/22 Marcello Ibanez MD [address] [place] [address] Fellow Gastroenterology 11/08/22 Kindergarten Instructional Assistant Relationship Specialty Start Date End Date Theo Burks MD [address] [place] [address] [place] [address] PCP - General Family Medicine 08/25/22 Abbey Alvarez MD [address] [place] [address] [place] [address] Fellow Gastroenterology 09/13/22 Saskia Madison, LIBAN-MERCHANDISE HANDLER [address] [place] [address] [place] [address] DATA ENTRY MANAGER Gastroenterology 09/13/22 Marcello Ibanez MD [address] [place] [address] Fellow Gastroenterology 11/08/22 Kindergarten Instructional Assistant Relationship Specialty Start Date End Date Theo Burks MD [address] [place] [address] [place] [address] PCP - General Family Medicine 08/25/22 Abbey Alvarez MD [address] [place] [address] [place] [address] Fellow Gastroenterology 09/13/22 Saskia Madison APRN-MERCHANDISE HANDLER [address] [place] [address] [place] [address] DATA ENTRY MANAGER Gastroenterology 09/13/22 Marcello Ibanez MD [address] [place] [address] Fellow Gastroenterology 11/08/22 Kindergarten Instructional Assistant Relationship Specialty Start Date End Date Theo Burks MD [address] [place] [address] [place] [address] PCP - General Family Medicine 08/25/22 Abbey Alvarez MD [address] [place] [address] [place] [address] Fellow Gastroenterology 09/13/22 Saskia Madison, SAP BASIS ADMINISTRATOR-MERCHANDISE HANDLER [address] [place] [address] [place] [address] DATA ENTRY MANAGER Gastroenterology 09/13/22 Marcello Ibanez MD [address] [place] [address] Fellow Gastroenterology 11/08/22 Kindergarten Instructional Assistant Relationship Specialty Start Date End Date Theo Burks MD [address] [place] [address] [place] [address] PCP - General Family Medicine 08/25/22 Abbey Alvaerz MD [address] [place] [address] [place] [address] Fellow Gastroenterology 09/13/22 Saskia Madison, SAP BASIS ADMINISTRATOR-MERCHANDISE HANDLER [address] [place] [address] [place] [address] DATA ENTRY MANAGER Gastroenterology 09/13/22 Marcello Ibanez MD [address] [place] [address] Fellow Gastroenterology 11/08/22 Kindergarten Instructional Assistant Relationship Specialty Start Date End Date Theo Burks MD [address] [place] [address] [place] [address] PCP - General Family Medicine 08/25/22 Abbey Alvarez MD [address] [place] [address] [place] [address] Fellow Gastroenterology 09/13/22 Saskia Madison APRN-DAYAMI [address] [place] [address] [place] [address] DATA ENTRY MANAGER Gastroenterology 09/13/22 Marcello Ibanez MD [address] [place] [address] Fellow Gastroenterology 11/08/22 Kindergarten Instructional Assistant Relationship Specialty Start Date End Date Theo Burks MD [address] [place] [address] [place] [address] PCP - General Family Medicine 08/25/22 Abbey Alvarez MD [address] [place] [address] [place] [address] Fellow Gastroenterology 09/13/22 Saskia Madison APRN-MERCHANDISE HANDLER [address] [place] [address] [place] [address] DATA ENTRY MANAGER Gastroenterology 09/13/22 Marcello Ibanez MD [address] [place] [address] Fellow Gastroenterology 11/08/22 Kindergarten Instructional Assistant Relationship Specialty Start Date End Date Theo Burks MD [address] [place] [address] [place] [address] PCP - General Family Medicine 08/25/22 Abbey Alvarez MD [address] [place] [address] [place] [address] Fellow Gastroenterology 09/13/22 Saskia Madison APRN-MERCHANDISE HANDLER [address] [place] [address] [place] [address] DATA ENTRY MANAGER Gastroenterology 09/13/22 Marcello Ibanez MD [address] [place] [address] Fellow Gastroenterology 11/08/22 Kindergarten Instructional Assistant Relationship Specialty Start Date End Date Theo Burks MD [address] [place] [address] [place] [address] PCP - General Family Medicine 08/25/22 Abbey Alvarez MD [address] [place] [address] [place] [address] Fellow Gastroenterology 09/13/22 Saskia Madison APRN-MERCHANDISE HANDLER [address] [place] [address] [place] [address] DATA ENTRY MANAGER Gastroenterology 09/13/22 Marcello Ibanez MD [address] [place] [address] Fellow Gastroenterology 11/08/22 Kindergarten Instructional Assistant Relationship Specialty Start Date End Date Theo Burks MD [address] [place] [address] [place] [address] PCP - General Family Medicine 08/25/22 Abbey Alvarez MD [address] [place] [address] [place] [address] Fellow Gastroenterology 09/13/22 Saskia Madison APRN-MERCHANDISE HANDLER [address] [place] [address] [place] [address] DATA ENTRY MANAGER Gastroenterology 09/13/22 Marcello Ibanez MD [address] [place] [address] Fellow Gastroenterology 11/08/22 Kindergarten Instructional Assistant Relationship Specialty Start Date End Date Theo Burks MD [address] [place] [address] [place] [address] PCP - General Family Medicine 08/25/22 Abbey Alvarez MD [address] [place] [address] [place] [address] Fellow Gastroenterology 09/13/22 Saskia Madison APRN-MERCHANDISE HANDLER [address] [place] [address] [place] [address] DATA ENTRY MANAGER Gastroenterology 09/13/22 Marcello Ibanez MD [address] [place] [address] Fellow Gastroenterology 11/08/22 Kindergarten Instructional Assistant Relationship Specialty Start Date End Date Theo Burks MD [address] [place] [address] [place] [address] PCP - General Family Medicine 08/25/22 Abbey Alvarez MD [address] [place] [address] [place] [address] Fellow Gastroenterology 09/13/22 Saskia Madison APRN-MERCHANDISE HANDLER [address] [place] [address] [place] [address] DATA ENTRY MANAGER Gastroenterology 09/13/22 Marcello Ibanez MD [address] [place] [address] Fellow Gastroenterology 11/08/22 Kindergarten Instructional Assistant Relationship Specialty Start Date End Date Theo Burks MD [address] [place] [address] [place] [address] PCP - General Family Medicine 08/25/22 Abbey Alvarez MD [address] [place] [address] [place] [address] Fellow Gastroenterology 09/13/22 Saskia Madison APRN-MERCHANDISE HANDLER [address] [place] [address] [place] [address] DATA ENTRY MANAGER Gastroenterology 09/13/22 Marcello Ibanez MD [address] [place] [address] Fellow Gastroenterology 11/08/22 Kindergarten Instructional Assistant Relationship Specialty Start Date End Date Theo Burks MD [address] [place] [address] [place] [address] PCP - General Family Medicine 08/25/22 Abbey Alvarez MD [address] [place] [address] [place] [address] Fellow Gastroenterology 09/13/22 Saskia Madison APRN-MERCHANDISE HANDLER [address] [place] [address] [place] [address] DATA ENTRY MANAGER Gastroenterology 09/13/22 Marcello Ibanez MD [address] [place] [address] Fellow Gastroenterology 11/08/22 Kindergarten Instructional Assistant Relationship Specialty Start Date End Date Theo Burks MD [address] [facility] [place] [address] PCP - General Family Medicine 08/25/22 Abbey Alvarez MD [address] [place] [address] [place] [address] Fellow Gastroenterology 09/13/22 Saskia Madison, LIBAN-MERCHANDISE HANDLER [address] [place] [address] [place] [address] DATA ENTRY MANAGER Gastroenterology 09/13/22 Marcello Ibanez MD [address] [place] [address] [place] [address] Fellow Gastroenterology 11/08/22 Kindergarten Instructional Assistant Relationship Specialty Start Date End Date Josiane Mccullough MD [address] [place] [address] PCP - General Family Medicine 07/18/13 Josiane Mccullough MD [address] [place] [address] 07/18/13 Kindergarten Instructional Assistant Relationship Specialty Start Date End Date Theo Burks MD [address] [place] [address] [place] [address] PCP - General Family Medicine 08/25/22 Abbey Alvarez MD [address] [place] [address] [place] [address] Fellow Gastroenterology 09/13/22 Saskia Madison SAP BASIS ADMINISTRATOR-MERCHANDISE HANDLER [address] [place] [address] [place] [address] DATA ENTRY MANAGER Gastroenterology 09/13/22 Marcello Ibanez MD [address] [place] [address] Fellow Gastroenterology 11/08/22 Kindergarten Instructional Assistant Relationship Specialty Start Date End Date Loreta Cummings APRN-MERCHANDISE HANDLER [address] [facility] [address] [place] [address] PCP - General Emergency Medicine 04/21/24 Kindergarten Instructional Assistant Relationship Specialty Start Date End Date Loreta Cummings APRN-MERCHANDISE HANDLER [address] [facility] [address] [place] [address] PCP - General Emergency Medicine 04/21/24 Kindergarten Instructional Assistant Relationship Specialty Start Date End Date Cristina Chung MD [address] [place] [phone] PCP - General Family Medicine 01/13/25 Evelio Carr DO [address] [place] [address] Referring Physician Pain Medicine 01/13/25 Kindergarten Instructional Assistant Relationship Specialty Start Date End Date Cristina Chung MD [address] [place] [phone] PCP - General Family Medicine 01/13/25 Evelio Carr DO [address] [place] [address] Referring Physician Pain Medicine 01/13/25 Source Comments (unrecognize d section and content) In the event this informatio n is protected by the [facility] Confidentiality of Alcohol and Drug Abuse Patient Records regulations: The Federal rules restrict any use of the information to criminally investigate or prosecute any alcohol or drug abuse patient.[facility] (unrecognized sect ion and content) No Status [...] section and content) DATE CREATED AUTHOR 01/01/2024 [facility] DATE CREATED AUTHOR AUTHOR'S ORGANIZ ATION 02/21/2024 [facility] DATE CREATED AUTHOR AUTHOR'S ORGANIZ ATION 03/04/2024 [facility] DATE CREATED AUTHOR AUTHOR'S ORGANIZ ATION 03/05/2024 [facility] DATE CREATED AUTHOR AUTHOR'S ORGANIZ ATION 03/11/2024 [facility] DATE CREATED AUTHOR AUTHOR'S ORGANIZ ATION 04/11/2024 [facility] DATE CREATED AUTHOR AUTHOR'S ORGANIZ ATION 04/27/2024 [facility] DATE CREATED AUTHOR AUTHOR'S ORGANIZ ATION 05/07/2024 [facility] DATE CREATED AUTHOR AUTHOR'S ORGANIZ ATION 05/26/2024 [facility] DATE CREATED AUTHOR AUTHOR'S ORGANIZ ATION 05/27/2024 [facility] DATE CREATED AUTHOR AUTHOR'S ORGANIZ ATION 05/28/2024 [facility] DATE CREATED AUTHOR AUTHOR'S ORGANIZ ATION 06/01/2024 [facility] DATE CREATED AUTHOR AUTHOR'S ORGANIZ ATION 07/11/2024 [facility] DATE CREATED AUTHOR AUTHOR'S ORGANIZ ATION 07/13/2024 [facility] DATE CREATED AUTHOR AUTHOR'S ORGANIZ ATION 07/17/2024 [facility] DATE CREATED AUTHOR AUTHOR'S ORGANIZ ATION 08/20/2024 [facility] DATE CREATED AUTHOR AUTHOR'S ORGANIZ ATION 09/21/2024 [facility] DATE CREATED AUTHOR AUTHOR'S ORGANIZ ATION 09/24/2024 [facility] DATE CREATED AUTHOR AUTHOR'S ORGANIZ ATION 10/03/2024 [facility] DATE CREATED AUTHOR AUTHOR'S ORGANIZ ATION 11/13/2024 [facility] DATE CREATED AUTHOR AUTHOR'S ORGANIZ ATION 11/17/2024 [facility] DATE CREATED AUTHOR AUTHOR'S ORGANIZ ATION 11/22/2024 [facility] DATE CREATED AUTHOR AUTHOR'S ORGANIZ ATION 12/12/2024 [facility] DATE CREATED AUTHOR AUTHOR'S ORGANIZ ATION 12/20/2024 [facility] DATE CREATED AUTHOR AUTHOR'S ORGANIZ ATION 01/14/2025 [facility] DATE CREATED AUTHOR AUTHOR'S ORGANIZ ATION 01/25/2025 [facility] dical Specialists [facility] FOR RECORDS PERTAINING TO PATIENTS WHO [...] BE BASED ON THE PRIMARY CLINICAL RECORDS. [facility] [employer] provides no warranty or guarantee of the accuracy or completeness of information in this document.
[2025-02-28 02:20] LABS: Ethanol <3 mg/dL
[2025-02-28] MEDS: MAGNESIUM SULFATE IN WATER 2 GM/50 ML PREMIX IV (02:42)
[2025-02-28 05:16] LABS: Hemoglobin 11.7 g/dL (14.0-18.0); Mean Corpuscular HGB Conc 35.5 g/dL (29.9-35.2); Mean Corpuscular Hemoglobin 36.2 pg (25.9-34.0); Mean Corpuscular Volume 102.2 fL (80.0-94.0); Mean Platelet Volume 10.7 fL (9.5-13.5); Platelet Count 50 10^3/uL (150-450); Red Blood Count 3.23 10^6/uL (4.70-6.10); Red Cell Distribution Width 14.5 % (11.0-15.0); White Blood Count 5.9 10^3/uL (4.0-11.0)
[2025-02-28 05:36] LABS: Alanine Aminotransferase 32 U/L (16-63); Albumin Globulin Ratio 0.7; Albumin Level 2.4 g/dL (3.4-5.0); Alkaline Phosphatase 119 U/L (46-116); Anion Gap 9.9; Aspartate Amino Transferase 39 U/L (15-37); BUN Creatinine Ratio 22.7; Calcium 8.8 mg/dL (8.5-10.1); Carbon Dioxide 26.1 mmol/L (21.0-32.0); Chloride 106 mmol/L (98-107); Estimated GFR (African America >60 (>=60 mL/min/1.73m^2); Estimated GFR (Non-African Ame >60 (>=60 mL/min/1.73m^2); Globulin 3.4 g/dL; Glucose 126 mg/dL (74-106); Sodium 138 mmol/L (136-145); Total Protein 5.8 g/dL (6.4-8.2)
--- OUTSIDE RECORDS SUMMARY | 2025-02-28 07:03 | XMS_ITS | Encounter Summary ---
Author Organization [facility] Address [address] [place] [id number] Care Team Providers Care Marble Installer Supervisor Name Role Phone Victorino Naranjo MD Primary Care Provider Victorino Naranjo MD Primary Care Provider Victorino Naranjo MD Unavailable [phone] Lisa Lopez [facility] Unavailable [phone] Source Comments In the event this information is protected by the Federal Confidentiality of Alcohol and Drug AbusePatient Records regulations: The Federal rules restrict any use of the information to criminally investigate or prosecute any alcohol or drug abuse patient.[facility] Encounter Details Date Type Department Care Team [...] on filedocumented in this encounter Care Teams Marble Installer Supervisor Relationship Specialty Start Date End Date Victorino Naranjo MD [address] [place] [address] PCP - General 06/03/02 07/17/13 Victorino Naranjo MD [address] [place] [address] PCP - General Family Medicine 07/18/13 Victorino Naranjo MD [address] [employer] [address] [place] [address] 07/18/13 Lisa Lopez, PROFESSOR OF VISUAL ARTS [address] [facility] [address] [address] [place] [address] Nurse Practitioner 12/31/23 documented as of this encounter
--- OUTSIDE RECORDS SUMMARY | 2025-02-28 07:03 | XMS_ITS | Clinical Summary ---
Author Organization [facility] Address [address] [place] [address] Care Team Providers Care Ppap Coordinator Name Role Phone Victorino Naranjo MD Primary Care Provider Victorino Naranjo MD Unavailable [phone] Lisa Lopez SERVICE TRAINER Unavailable Allergies Active Allergy Reactions Criticality Noted [...] naloxone 4 mg/actuation nasal spray (NARCAN) 1 [place] by nasal (alternating ) route. 10/28/2023 Active [...] Data from: https://www.neighborhoodatlas.medicine.[facility].edu/. Last address used for calculation [address] [...] Hep B Core Ab, Total Negative NEGAT [facility] Hep C Antibody IA Negative NEGAT [facility] HBsAg Negative NEGAT [facility] Hep B Surface Ab, Qual Negative NEGAT [facility] Comment: A negative Hepatitis [...] Cash Art MD LABORATORY Final Resul t [facility] [address] [place] [address] from Last 3 Months or Most Recently Relevant to Health Maintenance Insurance [employer] Care Teams Ppap Coordinator Relationship Specialty Start Date End Date Victorino Naranjo MD [address] [place] [address] PCP - General Family Medicine 07/18/13 Victorino Naranjo MD [address] [place] [address] 07/18/13 Lisa Lopez, SERVICE TRAINER [address] [facility] [address] [address] Nurse Practitioner 12/31/23
--- OUTSIDE RECORDS SUMMARY | 2025-02-28 07:03 | XMS_ITS | Encounter Summary ---
Author Organization [facility] [employer] Address [id number] [address] [place] [address] Care Team Providers Care Independent Trader Name Role Phone Lisa Lopez Primary Care Provide r Unavailable Encounter Details Date Type Department Care Team (Late st Contact Info) Description 04/13/2024 Orders Only [facility] [address] [place] [address] Sharif, Alexa, RADHA Social History Tobacco Use Types Packs/Day Years Used Date Smoking Tobacco: Never Assessed Hunger Screening Answer Date Recorded Within the past 12 months we worried whether our food would run out before we got money to buy more. Never True 04/14/2024 Within the past 12 months th e food we bought just didn't last and we didn't have money to get more. Never True 04/14/2024 Sex and Gender Information Value Date Recorded Sex Assigned at Not on file Legal Sex Male 8:47 AM EDT Gender Identity Not on file Sexual Orientation Not on file documented as of this encounter Plan of Treatment Not on file documented as of this encounter Visit Diagnoses Not on filedocumented in this encounter Care Teams Independent Trader Relationship Specialty Start Date End Date Lisa Lopez APRN-CNP PCP - General Emergency Medicine 04/21/24 documented as of this encounter
--- OUTSIDE RECORDS SUMMARY | 2025-02-28 07:03 | XMS_ITS | Clinical Summary ---
Author Organization [facility] Address [id number] [place] [address] Care Team Providers Care Checkout Operator Name Role Phone John Lisa Nadia [employer] Primary Care Provide r Unavailable Allergies Active Allergy Reactions Criticality Noted Date Comments Amoxicillin Hives Low 02/02/2003 Penicillin Other (See Comments) 04/14/2024 Perflutren Lipid Microspheres pain 04/14/2024 Definity contrast echocardiogram Medications cholecalciferol (VITAMIN D3) 50,000 units capsule Take 1 capsule (50,000 Units total) by mouth once a week. Active folic acid (FOLVITE) 1 mg tablet Take 1 tablet (1 mg total) by mouth in the morning. 07/13/20 23 Active furosemide (LASIX) 20 mg tabletIndications: edema Take 1 tablet (20 mg total) by mouth daily Indications: visible water retention. Evening dose prn for swelling 20 mg Active lactulose (CHRONULAC) 10 gram/15 mL solution Take 15 mL (10 g total) by mouth 4 (four) times a day as needed. Active mycophenolate (CELLCEPT) 500 mg tablet Take 1 tablet (500 mg total) by mouth in the morning and 1 tablet (500 mg total) before bedtime. Patient stopped 12/2023 /patient stated he took it for blood disorder. Active naloxone (NARCAN) 4 mg/actuation spray,non-aerosol nasal spray Administer 1 spray (4 mg total) into each nostril as needed. 10/28/19 24 Active ondansetron ODT (ZOFRAN ODT) 4 mg disintegrating tablet Dissolve 1 tablet (4 mg total) on tongue every 8 (eight) hours as needed. Active oxyCODONE (ROXICODONE) 5 mg immediate release tablet Take 1 tablet (5 mg total) by mouth every 6 (six) hours as needed. 01/27/20 24 Active spironolactone (ALDACTONE) 50 mg tabletIndications: edema due to hepatic cirrhosis Take 1 tablet (50 mg total) by mouth in the morning. Indications: accumulation of fluid caused by cirrhosis of the liver. 50 mg evening dose as needed. 01/20/20 24 Active ursodioL (ACTIGALL) 300 mg capsule Take 1 capsule (300 mg total) by mouth in the morning and 1 capsule (300 mg total) before bedtime. Active pediatric multivitamin-iron tablet,chewable Chew 1 tablet and swallow in the morning. 07/13/20 23 Active doxycycline (MONODOX) 100 mg capsule TAKE 1 CAPSULE BY MOUTH TWICE DAILY FOR 14 DAYS 04/16/20 24 Active levoFLOXacin (LEVAQUIN) 750 mg tablet Take 1 tablet (750 mg total) by mouth in the morning. 04/16/20 24 Active phosphorated carbo,dext-fruct, (NAUSEA RELIEF ORAL) Take by mouth. unknown Active Active Problems Problem Noted Date Diagnosed Date Lymphedema 05/12/2024 Assessment & Plan (05/12/2024 10:03 AM EDT): we have ruled out AV malformation with the angiogram and there is no clear AV fistula, To me this is more available lymphedema I am referring him for complex decongestive therapy AVM (arteriovenous malformation) 04/14/2024 Assessment & Plan (04/14/2024 9:26 AM EDT): RLE angio, possible intervention Abnormal stress test 04/13/2024 Alcohol use disorder in remission 04/13/2024 Severe back pain 04/13/2024 Cholelithiases 04/13/2024 Dependent edema 04/13/2024 Diarrhea 04/13/2024 Elevated blood pressure reading 04/13/2024 Elevated fasting glucose 04/13/2024 Elevated INR 04/13/2024 Epigastric pain 04/13/2024 Esophageal varices 04/13/2024 Headache 04/13/2024 Iron deficiency anemia 04/13/2024 HTN (hypertension) 04/13/2024 Hypokalemia 04/13/2024 Liver cirrhosis, alcoholic 04/13/2024 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 Nausea 04/13/2024 Portal venous hypertension 04/13/2024 Varicose veins of legs 04/13/2024 Venous ulcer of right leg 04/13/2024 Alcoholic fatty liver 10/31/2022 Alcoholic hepatitis 10/31/2022 Hyperbilirubinemia 10/31/2022 Macrocytosis 02/12/2022 Alcohol abuse 01/16/2022 Coagulation defect 01/16/2022 Hemolytic anemia 01/16/2022 Thrombocytopenia 01/16/2022 Hematoma 01/08/2022 Lumbar compression fracture 08/24/2013 Overview (04/13/2024): 2013 after a fall Elevated liver enzymes 11/30/2011 Vitamin D deficiency 10/30/2011 Open fracture of angle of jaw 03/15/2008 Family History Medical History Relation Name Comments Anesthesia problems Neg Hx Social History Tobacco Use Types Packs/Day Years Used Date Smoking Tobacco: Former Cigarettes 0.5 4 2 003 - 2008 Smokeless Tobacco: Current Snuff Tobacco Cessation:Ready to Q uit: Not Asked; Counseling Given: Not Answered Comments:2 tins per week Alcohol Use Standard Drinks/Week Comments Not Currently 0 (1 standard drink = 0.6 oz pur e alcohol) quit 2020 Hunger Screening Answer Date Recorded Within the past 12 months we worried whether our food would run out before we got money to buy more. Never True 05/12/2024 Within the past 12 months th e food we bought just didn't last and we didn't have money to get more. Never True 05/12/2024 Sex and Gender Information Value Date Recorded Sex Assigned at Not on file Legal Sex Male 8:47 AM EDT Gender Identity Not on file Sexual Orientation Not on file Last Filed Vital Signs Vital Sign Reading Time Taken Comments Blood Pressure 132/76 05/12/2024 9:36 AM EDT Pulse 65 05/12/2024 9:36 AM EDT Temperature 36.3 C (97.3 F) 04/26/2024 1:26 PM EDT Respiratory Rate 12 04/26/2024 1:26 PM EDT Oxygen Saturation 97% 05/12/2024 9:36 AM EDT Inhaled Oxygen Concentration - - Weight 74 kg (163 lb 3.2 oz) 05/12/2024 9:36 AM EDT Height 170.2 cm (5' 7 ) 05/12/2024 9:36 AM EDT Body Mass Index 25.56 05/12/2024 9:36 AM EDT Plan of Treatment Health Maintenance Due Date Last Done Comments Tobacco Counseling 1984 Depression Screening 1996 Adult BMI Follow Up Plan 2002 DTaP,Tdap and Td Vaccines (1 - Tdap) 2003 COVID-19 Vaccine (3 - season) 05/08/202412/2020, 12/11/2020 Influenza Vaccine 05/08/2025 Adult BMI Screening 05/12/2025 05/12/2024 Tobacco Screening 05/12/2025 05/12/2024 Medical Devices Not on file Insurance [employer] Member Subscriber Plan / Payer (Ef fective 2023-Present) Name:Edgardo Ralph Relation to Subscriber:Self Name:Edgardo Ralhp Payer ID:Not on file Type:Not on file Address: [place] [id number] Care Teams Checkout Operator Relationship Specialty Start Date End Date Lisa Lopez APRN-DAYAMI PCP - General Emergency Medicine 04/21/24
--- OUTSIDE RECORDS SUMMARY | 2025-02-28 07:08 | XMS_ITS | CCD ---
Author Organization [facility] Inform ion Partnership [facility] Care Team Providers Care Mental Hygienist Name Role Phone Link, Colby Bharat Primary Care Physician [phone] Unavailable Primary Care Provider Unavailabl e Unavailable [...] GonzalesPCNP-BC Ella Polk Admitting U navailable Demboske, [facility] Ella Polk Attending U navailable Demboske, [facility] Ella Polk Attending U navailable Demboske, [facility] Ella Polk Referring U navailable LORETA CUMMINGS Primary Care Unavailable SNIDHU, MOHAMED F Admitting Unavailable SINDHU, MOHAMED F [...] Admitting Unavailable Loreta Cummings Primary Care Physician [phone] Kavon Lu Attending Unavailable Tabitha Kavon Admitting [...] Kavon Admitting Unavailable Keith Patricia Admitting Unavailable Ketih Patricia Attending Unavailable Beronica Sadie Admitting Unavailable Vic Ramos Referring Unavailable Sadie Loco Attending Unavailable Vic Ramos Referring Unavailable Evelio Carr Admitting Unavailable Evelio Carr Attending Unavailable Vic Ramos Referring Unavailable Sadie Loco Attending Unavailable Sadie Loco Admitting Unavailable Sarmini, Martin Talal Referring Unavaila ble Sarmini, Martin Talal Admitting Unavaila ble Sarmini, Martin Inga Attending Unavaila Evelio Alston Attending Unavailable Eveloi Carr Referring Unavailable Sadie oLco Attending Unavailable Beronica Sadie Referring Unavailable Beronica [...] Translations: [amoxicillin] Drug Allergy Unknown (qualifier value) [facility] Perflutren (1 source) Perflutren; Translations: [perflutren] Drug Allergy Back Pain [facility] (20 sources) Amoxicillin; Translations: [amoxicillin] Drug Allergy 02-03-20 03 Unknown (qualifier value), Hives [facility] (20 sources) Penicillin; Translations: [penicillin] Drug Allergy 04-14-20 Other (See Comments) [facility] (1 source) Substance with penicillin structure and antibacterial mechanism of action (substance) Drug allergy Unknown [facility] Other (20 sources) Perflutren; Translations: [perflutren] Drug Allergy 04-14-20 pain [facility] (1 source) PERFLUTREN LIPID MICROSPHERES; Translations: [...] tab(s), Oral, Daily, 90 tab(s), Refill(s) 0, [facility] #[id number], 170, cm, 04/29/24 9:16:00 EDT, Height/Length Dosing, 70.1, kg, 04/29/24 9:16:00 EDT, Weight Dosing Start Date: 04/29/24 Status: Ordered carvedilol 6.25 mg oral tablet (13 sources) alpha-Adrenergic Melvin, beta-Adrenergic Melvin Start: 10-05-2024 take 1 tablet by mouth twice daily Coreg 6.25 mg Tab 6.25 mg = 1 tab(s), Oral, BID, # 180 tab(s), Refills(s) 3, Pharmacy: [facility], 170, cm, 10/05/24 9:01:00 EST, Height/Length Dosing, 78.5, kg, 10/05/24 9:11:00 EST, Weight Dosing Start Date: 10/05/24 Status: Ordered Start: 06-09-2024 take 1 tablet by patricia twice daily Coreg 6.25 mg Tab 6.25 mg = 1 tab(s), Oral, BID, # 60 tab(s), Refills(s) 3, Pharmacy: [facility], 170, cm, 06/09/24 13:35:00 EDT, Height/Length Dosing, 74.2, kg, 06/09/24 13:35:00 EDT, Weight Dosing Start Date: 06/09/24 Status: Ordered cephalexin 500 mg oral capsule (9 sources) Cephalosporin Antibacterial Start: 09-21-2023 End: 09-26-2023 take 1 capsule by mouth every eight hours Keflex 500 mg Cap 500 mg = 1 cap(s), Oral, q8hr, X 5 day(s), # 15 cap(s), Refills(s) 0, [id number], 170, cm, 09/21/23 14:28:00 EST, Height/Length Dosing, [...] 12 cap(s), Refills(s) 1, [facility]: [facility] #[id number], 170, cm, 12/23/23 11:10:00 EDT, Height/Length Dosing, [...] 28 cap(s), Refills(s) 0, [facility]acy: [facility] #[id number], 170, cm, 02/18/23 7:51:00 EDT, Height/Length Dosing, [...] Daily, # 90 tab(s), Refills(s) 3, Pharmacy: [facility] #[id number], 170, cm, 04/29/24 9:16:00 EDT, Height/Length Dosing, [...] day(s), # 180 tab(s), Refills(s) 0, Pharmacy: [facility], 170, cm, 10/26/24 10:30:00 EST, Height/Length Dosing, 78.9, kg, 10/26/24 10:30:00 EST, Weight Dosing Start Date: 11/14/24 Stop Date: 12/14/24 Status: Ordered Start: 10-26-2024 gabapentin 300 mg Cap See Instructions, take per office provided instructions until you are taking 2 tablets three times per day, # 120 tab(s), Refills(s) 0, Pharmacy: [facility], 170, cm, 10/26/24 10:30:00 EST, Height/Length Dosing, 78.9, kg, 10/26/24 10:30:00 EST, Weight Dosing Start Date: 10/26/24 Status: Ordered Start: 07-24-2023 take 1 capsule by [facility] twice daily gabapentin 300 mg Cap 300 mg = 1 cap(s), Oral, BID, # 60 cap(s), Refills(s) 0, Pharmacy: [facility] #[id number], 170, cm, 07/24/23 7:59:00 EST, Height/Length Dosing, [...] DAILY, # 3,600 mL, Refills(s) 3, Pharmacy: [facility] #[id number], 170, cm, 05/12/24 15:39:00 EDT, Height/Length Dosing, 73, kg, 05/12/24 15:39:00 EDT, Weight Dosing Start Date: 05/31/24 Status: Ordered Start: 02-24-2024 take 20 g by mouth f our times daily lactulose 10 g/15 mL Oral Syrup 20 gm = 30 mL, Oral, QID, # 3,600 mL, Refills(s) 1, Pharmacy: [facility] #[id number], 170, cm, 01/27/24 9:52:00 EDT, Height/Length Dosing, 74.6, kg, 01/27/24 9:52:00 EDT, Weight Dosing Start Date: 02/24/24 Status: Ordered Start: 10-28-2023 take 20 g by mouth f our times daily lactulose 10 g/15 mL Oral Syrup 20 gm = 30 mL, Oral, QID, # 3,600 mL, Refills(s) 1, Pharmacy: [facility] #[id number], 160, cm, 10/28/23 9:43:00 EST, Height/Length Dosing, [...] patches if insurance coverage issue, [facility] #[id number], 170, cm, 08/26/23 9:52:00 EST, Height/Length Dosing, 68.5, kg, 08/26/23 9:52:00 EST, Weight Dosing Start Date: 08/26/23 Status: Ordered Start: 08-26-2023 apply 28.5 g topical ly twice daily lidocaine 3% topical gel See Instructions, 28.5 gm, Refill(s) 0, Topical BID apply a thin film to the affected areas may substitute for 2 % if this is not available, [facility] #[id number], 170, cm, 08/26/23 9:52:00 EST, Height/Length Dosing, [...] SPARINGLY, # 30 tab(s), Refills(s) 2, [id number], 170, cm, 05/12/24 15:39:00 EDT, Height/Length Dosing, 73, kg, 05/12/24 15:39:00 EDT, Weight Dosing Start Date: 05/23/24 Status: Ordered Start: 04-29-2024 take 1 tablet by patricia th once daily at mealtime meloxicam 7.5 mg Tab 7.5 mg = 1 tab(s), Oral, Daily, take with food and sparingly, # 30 tab(s), Refills(s) 0, [id number], 170, cm, 04/29/24 9:16:00 EDT, Height/Length Dosing, [...] Start Date: 07/24/23 Status: Ordered Start: 07-24-2023 [facility] DME Presc ription See Instructions, [place] SAP Dressing 4 x 4 dressing Start Date: 07/24/23 Status: Ordered Start: 07-24-2023 [facility] DME Presc ription See Instructions, Muscle & joint balm CBD 880mg Start Date: 07/24/23 Status: Ordered [facility] Prescription (7 sources) Start: 07-24-2023 [facility] Prescription Bee Venom, Daily Start Date: 07/24/23 [...] symptoms, # 1 kit(s), Refills(s) 0, Pharmacy: [facility], 170, cm, 10/05/24 9:01:00 EST, Height/Length Dosing, 78.5, kg, 10/05/24 9:11:00 EST, Weight Dosing Start Date: 10/05/24 Status: Ordered Start: 10-28-2023 naloxone 4 mg/ actuation nasal spray (NARCAN) 1 [place] by nasal (alternating) route. 0 10/28/2023 Active Start: 10-28-2023 Narcan 4 mg/0. 1 mL nasal spray 4 mg, Nasal, As Directed, for suspected overdose symptoms, # 1 kit(s), Refills(s) 0, [facility]: [facility] #[id number], 160, cm, 10/28/23 9:43:00 EST, Height/Length Dosing, [...] Nausea, # 60 tab(s), Refills(s) 0, Pharmacy: [facility] #[id number], 170, cm, 05/12/24 15:39:00 EDT, Height/Length Dosing, 73, kg, 05/12/24 15:39:00 EDT, Weight Dosing Start Date: 05/31/24 Status: Ordered Start: 12-23-2023 take 1 tablet by patricia th three times daily as needed for nausea Zofran ODT 4 mg Tab 4 mg = 1 tab(s), Oral, TID, PRN Nausea, # 60 tab(s), Refills(s) 0, Pharmacy: [facility] #[id number], 170, cm, 12/23/23 11:10:00 EDT, Height/Length Dosing, 70.3, kg, 12/23/23 11:10:00 EDT, Weight Dosing Start Date: 12/23/23 Status: Ordered Start: 10-28-2023 take 1 tablet by patricia th three times daily as needed for nausea Zofran ODT 4 mg Tab 4 mg = 1 tab(s), Oral, TID, PRN Nausea, # 60 tab(s), Refills(s) 0, Pharmacy: [facility] #[id number], 160, cm, 10/28/23 9:43:00 EST, Height/Length Dosing, [...] only, # 28 tab(s), Refills(s) 0, Pharmacy: [facility], 170, cm, 10/05/24 9:01:00 EST, Height/Length [...] only, # 28 tab(s), Refills(s) 0, Pharmacy: [facility] #[id number], 170, cm, 01/27/24 9:52:00 EDT, Height/Length Dosing, 74.6, kg, 01/27/24 9:52:00 EDT, Weight Dosing Start Date: 01/27/24 Status: Ordered Start: 10-28-2023 take 0.5 tablet by m outh every six hours as needed for pain oxyCODONE 5 mg Tab 0.5 tab, Oral, q6hr, PRN for pain, for leg pain, # 28 tab(s), Refills(s) 0, Pharmacy: [facility] #[id number], 160, cm, 10/28/23 9:43:00 EST, Height/Length Dosing, [...] nausea/vomiting, # 30 tab(s), Refills(s) 0, Pharmacy: [facility] #[id number], 170, cm, 04/29/24 9:16:00 EDT, Height/Length Dosing, 70.1, kg, 04/29/24 9:16:00 EDT, Weight Dosing Start Date: 04/29/24 Status: Ordered spironolactone 50 mg oral tablet (20 sources) Aldosterone Antagonist Start: 11-21-2024 End: 11-16-2025 take 1 tablet by mouth once daily spironolactone 50 mg Tab 50 mg = 1 tab(s), Oral, Daily, X 90 day(s), # 90 tab(s), Refills(s) 3, Pharmacy: [facility], 170, cm, 11/21/24 9:32:00 EDT, Height/Length Dosing, 77.5, kg, 11/21/24 9:32:00 EDT, Weight Dosing Start Date: 11/21/24 Stop Date: 11/16/25 Status: Ordered Start: 01-20-2024 take 1 tablet by patricia th once daily spironolactone 50 mg Tab 50 mg = 1 tab(s), Oral, Daily, # 90 tab(s), Refills(s) 3, Pharmacy: [facility] #[id number], 170, cm, 12/23/23 11:10:00 EDT, Height/Length Dosing, [...] day(s), 28 tab(s), Refill(s) 0, [facility] #[id number], 170, cm, 03/22/23 20:14:00 EDT, Height/Length Dosing, [...] Start: 12-23-2023 take 1 capsule by [facility] twice daily ursodiol 300 mg Cap 300 mg = 1 cap(s), Oral, BID, # 60 cap(s), Refills(s) 1, [facility]acy: [facility] #[id number], 170, cm, 12/23/23 11:10:00 EDT, Height/Length Dosing, 70.3, kg, 12/23/23 11:10:00 EDT, Weight Dosing Start Date: 12/23/23 Status: Ordered Zofran ODT 4 mg Tab-Dis (20 sources) Start: 09-30-2023 take 1 tablet by mouth every eight hours as needed for nausea Zofran ODT 4 mg Tab-Dis 4 mg = 1 tab(s), Oral, q8hr, PRN Nausea/Vomiting, # 60 tab(s), Refills(s) 12, Pharmacy: [facility] #[id number], 170, cm, 09/30/23 9:19:00 EST, Height/Length Dosing, 69, kg, 09/30/23 9:19:00 EST, Weight Dosing Start Date: 09/30/23 Status: Ordered Start: 03-22-2023 take 1 tablet by [facility] every eight hours as needed for nausea Zofran ODT 4 mg Tab-Dis 4 mg = 1 tab(s), Oral, q8hr, PRN Nausea/Vomiting, # 20 tab(s), Refills(s) 0, Pharmacy: [facility] #[id number], 170, cm, 03/22/23 20:14:00 EDT, Height/Length Dosing, [...] 05/06/2022 Discontinued (Therapy completed) 168 hr cloNIDine 0.97192 mg/hr transdermal system (1 source) Central alpha-2 [...] 01-09-2022 2 mg, Oral, EVERY 2 HOURS MI N, Starting on Thu01/08/22 at 1755, Until [...] tablet by mouth twice daily Potassium Chloride (Prz-Bnal-Svl M20) 20 mEq oral tablet, extended release 20 mEq = 1 tab(s), Oral, BID, # 30 tab(s), Refills(s) 3, Pharmacy: [facility] #[id number], 170, cm, 07/24/23 7:59:00 EST, Height/Length Dosing, 73.5, kg, 07/24/23 7:59:00 EST, Weight Dosing Start Date: 07/24/23 Status: Ordered Start: 11-14-2022 take 1 tablet by [facility] once daily potassium chloride SA (K-DUR) 20 [...] aftercare (4 sources) Antibiotic prophylaxis indicated; Translations: [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] Episodic Other aftercare (5 sources) Drug therapy status; Translations: [Other vermin exterminator (current) drug therapy] Episodic Other aftercare (1 source) Long-term current use of drug therapy; Translations: [Other alf (current) drug therapy] Onset: 3 Episodic Other [...] Date Episodic/Chronic Other aftercare (1 source) Other vermin exterminator (current) drug therapy; Translations: [Other vermin exterminator (current) drug therapy] Onset: 10-01-2023 Episodic Other aftercare (1 source) 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 Type: P Room/Bed: / Admit/Disch: 01/03/25 [...] Liu RN Role Performed Surgeon - Primary Cap Parts Cutter - Primary Scrub - Primary Time In 01/03/25 11:40:00 01/03/25 11:40:00 01/03/25 11:40:00 Time Out 01/03/25 11:52:00 01/03/25 11:52:00 01/03/25 11:52:00 Procedure OTHER NERVE BLOCK(Right) OTHER NERVE BLOCK(Right) OTHER NERVE BLOCK(Right) Comments Last Modified By: Micky GREER, Ronda Weeks RN, Ronda West RN 01/03/25 11:51:19 01/03/25 11:51:19 01/03/25 11:51:19 Entry 4 Case Attendee Lisandra Sauer Role Performed Geothermal System Installer Time In 01/03/25 11:40:00 Time Out 01/03/25 [...] and tissue Entry 1 Skin Integrity Intact, [place], Warm, & Skin Abnormality No Dry Outcomes Met? Yes Last Modified By: Rodna Weeks RN 01/03/25 11:39:04 Post-Care Text: The [...] injury rel (more content not included)... Normal [facility] Main OR Preoperative Recordo n 01-03-2025 Main OR Preoperative Record Main OR Preoperative Record Holding Area Document Type FTPM Summary Primary Physician: Evelio Carr DO Finalized Date/Time: 01/03/25 10:50:35 Pt. Name: WILL RALPH./Sex: 1985 Male Med Rec #: [id number] Physician: Evelio Carr DO Financial #: [id number] Pt. Type: P Room/Bed: / Admit/Disch: 01/03/25 [...] By: Belén Huffman RN 01/03/25 10:50 Normal [facility] Ambulatory Visit Summaryon 0 12-21-2024 Ambulatory [...] 8:40 AM EDT With: Vic Carrion Where: [facility] [address], [facility] [address] 2025 2:40 PM EST With: Kavon Lu DO Where: [facility] You Need to Schedule the Following Appointments Follow Up with Vic Carrion, [facility] When: Comments: as scheduled Where: [address] [facility] [address] [place] [phone] Medications What How Much When Why Instructions Unchanged carvedilol (Coreg 6.25 mg Tab) 1 Tablets By Mouth 2 times a day HTN (hypertension) Unchanged furosemide (furosemide 20 mg Tab) 1 Tablets By Mouth Every day as needed for Edema Unchanged magnesium citrate By Mouth [facility]changed [facility] Pres[facility] (BP cuff device and appropriate size please) See instructions HTN (hypertension) BP Device/ machine and cuff (size appropriate) Unchanged Misc Prescription ([facility] Prescription) See instructions [place] SAP Dressing 4 x 4 dressing Unchanged Misc Prescription ([facility] Prescription) See instructions LiquidIV hydration Unchanged Misc Prescription ([facility] Prescription) See instructions Muscle & joint balm CBD 880mg Unchanged naloxone (Narcan 4 mg/ 0.1 mL nasal spray) 4 Milligram Nasal Inhalation As Directed Pain for suspected overdose symptoms Pickup at [facility] Unchanged ondansetron (Zofran ODT 4 mg [...] leg pain- severe pain only Pickup at [facility] Unchanged spironolactone (spironolactone 50 mg Tab) 1 Tablets By Mouth Every day Duration: 90 Days Pharmacy Information [facility]: [address] [place], [place] [id number] [phone] Allergies Definity (Back Pain) amoxicillin (Unknown) penicillin [...] n (more content not included)... Normal [facility] Family Medicine Office/Clini c Noteon 12-21-2024 [...] only, # 20 tab(s), Refills(s) 0, Pharmacy: [facility], 170, cm, 12/21/24 8:26:00 EDT, Height/Length [...] only, # 20 tab(s), Refills(s) 0, Pharmacy: [facility], 170, cm, 12/21/24 8:26:00 EDT, Height/Length Dosing, 77.2, kg, 12/21/24 8:33:00 EDT, Weight Dosing 6. Peripheral vascular disease (I73.9: Peripheral vascular disease, unspecified) see above. Ordered: oxycodone, 0.5 tab, Oral, q6hr, PRN for pain, for leg pain- severe pain only, # 20 tab(s), Refills(s) 0, Pharmacy: [facility], 170, cm, 12/21/24 8:26:00 EDT, Height/Length Dosing, 77.2, kg, 12/21/24 8:33:00 EDT, Weight Dosing Orders: naloxone, 4 mg, Nasal, As Directed, for suspected overdose symptoms, # 1 kit(s), Refills(s) 0, Pharmacy: [facility], 170, cm, 12/21/24 8:26:00 EDT, Height/Length Dosing, 77.2, kg, 12/21/24 8:33:00 EDT, Weight Dosing Total time spen (more content not included)... Normal [facility] Comment on above: Result Comment: Elec tronically Signed By: Rachel ALBERTS, Vic Friedman\.br\Date and Time Signed: 12/21/24 09:05 EDT Reminderson 12-09-2024 Reminders Reminders From: Naty Garcia MA To: [facility] - [facility]inders/Recalls; Sent: 12/09/2024 11:32:43 EDT Show up: 10/08/2025 11:32:00 EST Subject: EGD recall Due Date/Time: 11/18/2025 11:32:00 EDT Reminder/Recall [address] Evans 11/18/24 [facility] MRI Spine Lumbar w/o Contras ton 11-28-2024 [...] Almeida MD Transcribed by: JUNIOR Technologist: JPD [facility] Ambulatory Visit Summaryon 0 11-21-2024 Ambulatory Visit [...] 8:40 AM EDT With: Vic Carrion Where: [facility] [address] [place] [address]25 2:40 PM EST With: Kavon Lu DO Where: [facility] You Need to Schedule the Following Appointments Follow Up with Carrol MULTANI, Mario Xiong, [facility], [facility] When: In 3 months Where: [address], [address] [phone] You Need to Complete the Following CBC [...] Duration: 90 Days Refills: 3 Pickup at [facility] Unchanged carvedilol (Coreg 6.25 mg Tab) [...] Misc Prescription (Misc DME Prescription) See instructions [place] SAP Dressing 4 x 4 dressing Contact [...] physician if questions or concerns Pharmacy Information [facility]: [address] [place], [place] [phone] Allergies Definity (Back Pain) amoxicillin (Unknown) penicillin [...] 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 Normal [facility] Gastroenterology Office/Clin ic Noteon 11-21-2024 Gastroenterology [...] fL High (11/11/24) Chloride: 105 mmol/L (11/11/24) [place] Absolute: 0.4 E9/L (11/11/24) CO2: 27 mmol/L (11/11/24) [place] Auto: 9.7 % (11/11/24) Creatinine: 0.5 mg/dL [...] 2.5 years Liver biopsy was done at [facility], gradient was 14 mmHg Liver biopsy report [...] Mario Xiong, JOE, MED In [address] [place] [address] [place], [address] [phone] Additional Instructions: Problem List/Past Medical History Ongoing Abnormal stress test Alcohol use disorder in remission Anemia BMI 26.0-26.9,adult Cellulitis of right leg Cholelithiases Cirrhosis Dependent edema Diarrhea Elevated fasting glucose Elevated INR Elevated liver enzymes Epigastric pain Esophageal varices Headache Hemolytic anemia HTN (hypertension) Hypokalemia Iron deficiency anemia Liver cirrhosis, al (more content not included)... Normal [facility] Comment on above: Result Comment: Elec [...] WILL RALPH./Sex: 1985 Male Med Rec #: [id number] Physician: Mario Evans MD Financial #: [id number] Pt. Type: O Room/Bed: / Admit/Disch: 11/18/24 [...] Ware RN, Eve Do Role Performed Anesthesiologist Cap Parts Cutter - Primary Scrub - Primary Human Services Manager Time In 11/18/24 08:54:00 11/18/24 08:54:00 11/18/24 [...] and tissue Entry 1 Skin Integrity Intact, [place], Warm, & Skin Abnormality No Dry Outcomes [...] Device Safet (more content not included)... Normal [facility] Reminderson 11-21-2024 Reminders Reminders From: Grace Galaviz I To: [facility] - Reminders/Recalls; Sent: 11/21/2024 07:32:43 EDT Show up: 10/08/2025 07:32:00 EST Subject: EGD recall Due Date/Time: 11/18/2025 07:32:00 EDT Reminder/Recall [address] Evans 11/18/24 Normal [facility] XR Spine Lumbosacral Minimum 4 Viewson [...] DO Transcribed by: JUNIOR Technologist: MICKI Normal [facility] XR Foot 3+ Views Righton XR [...] (Electronic Signature): 11/19/2024 11:50 am Signed by: Greson Barrera MD Transcribed by: JUNIOR Technologist: [facility] Normal [facility] Ambulatory Visit Summaryon 0 11-18-2024 Ambulatory [...] EDT With: Carrol MULTANI, Mario Xiong Where: [facility] [address] [facility] [address] [facility] [address] [place] [address]- Thursday 8:40 AM EDT With: Vci Carrion Where: [facility] [address] [facility] [place] [address]25 2:40 PM EST With: [...] Misc Prescription (Misc DME Prescription) See instructions [place] SAP Dressing 4 x 4 dressing Unchanged [...] for choosing us for your care. Normal [facility] Discharge Instructionson Discharge Instructions Discharge Instructions [...] EDT With: Carrol MULTANI, Mario Xiong Where: [facility] [address] [address]- Thursday 8:40 AM EDT With: Vic Carrion Where: [facility] [address] [facility], [place] [address] 2025 2:40 PM EST With: [...] Misc Prescription (Misc DME Prescription) See instructions [place] SAP Dressing 4 x 4 dressing Unchanged [...] have a (more content not included)... Normal [facility] Comment on above: Result Comment: Elec [...] with voice recognition software. Occasional wrong-word or ???[id number]??? substitutions may have occurred due to the [...] feels he needs further pain medication than [id number]-[id number] prescribed he needs to reach out to [...] Follow-up With When Contact Information Vic Carrion, [facility], MED Additional Instructions: Patient Education How [...] Megaloblastic anem (more content not included)... Normal [facility] Comment on above: Result Comment: Elec tronically Signed By: Harshad PARKER, Keith Underwood\.br\Date and Time Signed: 11/18/24 18:59 EDT Inpatient Patient Summaryon 11-18-2024 Inpatient Patient Summary Inpatient Patient Summary [place] [address] [facility] Clinical Discharge Instructions PERSON INFORMATION Name: WILL [facility]PH [facility] Admitting Physician: Mario Evans MD Attending Physician: Mario Evans MD PCP: Vic Carrion Discharge Diagnosis: Cirrhosis Comment: PATIENT EDUCATION INFORMATION Instructions: Medication Leaflets: Follow up: Type Location Start Finish State Pain Management - Follow Up (FT) [facility] [place] 11/21/2024 8:30 AM 11/21/2024 8:45 AM Confirmed BADH Follow Up [facility] 11/21/2024 9:15 AM 11/21/2024 9:30 [...] Refills: 0. Misc Prescription (Misc DME Prescription) [place] SAP Dressing 4 x 4 dressing. Misc [...] Mouth every day. Refills: 3. Comment: Dung [facility] Main OR PACU II [place] Main OR PACU II Record Main OR PACU II Record PACU Phase II Document Type FT Summary Primary Physician: Mario Evans MD Finalized Date/Time: 11/18/24 09:24:26 Pt. Name: WILL RALPH/Sex: 1985 Male Med Rec #: [id number] Physician: Mario Evans MD Financial #: [id number] Pt. Type: O Room/Bed: / Admit/Disch: 11/18/24 [...] Signed By: Bhumika Campos RN 11/18/24 09:24 [facility] Main OR Preoperative Recordo n 11-18-2024 Main OR Preoperative Record Main OR Preoperative Record Holding Area Document Type FT Summary Primary Physician: Mario Evans MD Finalized Date/Time: 11/18/24 08:25:00 Pt. Name: WILL RALPH/Wesley: 1985 Male Med Rec #: [id number] Physician: Mario Evans MD Financial #: [id number] Pt. Type: O Room/Bed: / Admit/Disch: 11/18/24 [...] By: Alondra Lopez RN 11/18/24 08:25 Normal [facility] Outpatient Surgery Discharge Instructionon 11-18-2024 Outpatient Surgery Discharge Instruction Outpatient Surgery Discharge Instruction [address] [address] Patient Discharge Instructions PERSON INFORMATION [...] Management - Follow Up (FT) FT.Pain Mgmt [place] 11/21/2024 8:30 AM 11/21/2024 8:45 AM Confirmed BADH Follow Up [facility] Digestive Health 11/21/2024 9:15 AM 11/21/2024 9:30 [...] to serve you. Thank you for choosing [facility] HERE ARE THE MEDICATION CHANGES THAT OCCURRED [...] cuff (size appropriate). Refills: 0. Misc Prescription ([facility] Prescription) [place] SAP Dressing 4 x 4 dressing. Misc Prescription ([facility] Prescription) LiquidIV hydration. Misc Prescription ([facility] Prescription) Muscle & joint balm CBD [...] PATIENT EDUCATION INFORMATION Instructions: Medication Leaflets: Normal [facility] AFPon 11-12-2024 AFP.tumor marker [Mass/Vol] 4.3 ng/mL Invalid Interpretation Code 0.0-6.9 [facility] Comment on above: Result Comment: [facility] Electrochemiluminescence Immunoassay (ECLIA) Values obtained with different assay methods or kits cannot be used interchangeably. Results cannot be interpreted as absolute evidence of the presence or absence of malignant disease. This test is not interpretable in females. Performed at: [address] [id number] PhD Poncho Prater Performed By: #### 2 [id number] ####[facility] [address] [place] [address] CBC w/ Auto Diffon 5 Basophils/100 WBC (Bld) 0.9 % Normal 0.0-2.0 [facility] Comment on above: Performed By: #### 2 [id number] #### [facility] Laboratory [address] [place] [address] Basophils/Leukocytes Auto (Bld) [Pure # fraction] 0.0 E9/L Normal 0.0-0.2 [facility] Comment on above: Performed By: #### 2 [id number] #### [facility] Laboratory [address] [place] [address] Eosinophils (Bld) [#/Vol] 0.2 E9/L Normal 0.0-0.5 [facility] Comment on above: Performed By: #### 2 [id number] #### [facility] Laboratory [address] [place] [address] Eosinophils/100 WBC (Bld) 4.2 % Normal 0.0-8.0 [facility] Comment on above: Performed By: #### 2 [id number] #### [facility] [address] [place] [address] Erythrocyte distribution width (RBC) [Ratio] 15.3 % High 10.9-14.2 [facility] Comment on above: Performed By: #### 2 [id number] #### [facility] [address] [place] [address] Hematocrit (Bld) [Volume fraction] 41.8 % Normal 37.7-49.0 [facility] Comment on above: Performed By: #### 2 [id number] #### [facility] [address] [place] [address] Hemoglobin (Bld) [Mass/Vol] 14.5 g/dL Normal 13.5-17.5 [facility] Comment on above: Performed By: #### 2 [id number] #### [facility] [address] [place] [address] Lymphocytes (Bld) [#/Vol] 1.0 E9/L Normal 1.0-4.0 [facility] Comment on above: Performed By: #### 2 [id number] #### [facility] [address] [place] [address] Lymphocytes/100 WBC (Bld) 22.4 % Normal 14.0-50.0 [facility] Comment on above: Performed By: #### 2 [id number] #### [facility] [address] [place] [address] MCH (RBC) [Entitic mass] 36.4 pg High 27.0-34.0 [facility] Comment on above: Performed By: #### 2 [id number] #### [facility] Laboratory [address] [place] [address] MCHC (RBC) [Mass/Vol] 34.7 g/dL Normal 31.4-36.0 [facility] Comment on above: Performed By: #### 2 [id number] #### [facility] [address] [place] [address] MCV (RBC) [Entitic vol] 104.7 fL High 80.0-100.0 [facility] Comment on above: Performed By: #### 2 [id number] #### [facility] [address] [place] [address] Monocytes (Bld) [#/Vol] 0.4 E9/L Normal 0.2-1.0 [facility] Comment on above: Performed By: #### 2 722690 #### [facility] [address] [place] [address] Neutrophils (Bld) [#/Vol] 2.8 E9/L Normal 2.0-7.5 [facility] Comment on above: Performed By: #### 2 480206 #### [facility] [address] [place] [address] Neutrophils/100 WBC (Bld) 62.8 % Normal 36.0-75.0 [facility] Comment on above: Performed By: #### 2 [id number] #### [facility] [address] [place] [address] Platelet 84.0 E9/L Low 150.0-500.0 [facility] Comment on above: Performed By: #### 2 [id number] #### [facility] [address] [place] [address] Platelet mean volume (Bld) [Entitic vol] 8.2 fL Normal 6.4-10.8 [facility] Comment on above: Performed By: #### 2 [id number] #### [facility] [address] [place] [address] RBC (Bld) [#/Vol] 4.0 E12/L Low 4.3-5.9 [facility] Comment on above: Performed By: #### 2 104765 #### [facility] [address] [place] [address] WBC corrected for nucl RBC Auto (Bld) [#/Vol] 4.4 E9/L Normal 4.0-11.0 [facility] Comment on above: Performed By: #### 2 030437 #### [facility] [address] [place] [address] CMPon 11-11-2024 Albumin [Mass/Vol] 3.6 g/dL Normal 3.3-5.0 [facility] Comment on above: Performed By: #### 2 752160 #### [facility] [address] [place] [address] Albumin/Globulin (S) [Mass conc ratio] 1.0 Low 1.1-2.2 [facility] Comment on above: Performed By: #### 2 230015 #### [facility] [address] [place] [address] ALP [Catalytic activity/Vol] 159 Int._Unit/L High 21-98 [facility] Comment on above: Performed By: #### 2 [id number] #### [facility] [address] [place] [address] ALT No additional P-5'-P [Catalytic activity/Vol] 46 Int._Unit/L Normal 6-46 [facility] Comment on above: Performed By: #### 2 [id number] #### [facility] [address] [place] [address] Anion gap [Moles/Vol] 8 mmol/L Normal 6-16 [facility] Comment on above: Performed By: #### 2 [id number] #### [facility] [address] [place] [address] AST [Catalytic activity/Vol] 59 Int._Unit/L High 5-43 [facility] Comment on above: Performed By: #### 2 385907 #### [facility] [address] [place] [address] Bilirubin [Mass/Vol] 2.6 mg/dL High 0.0-1.1 [facility] Comment on above: Performed By: #### 2 [id number] #### [facility] [address] [place] [address] Calcium [Mass/Vol] 9.0 mg/dL Normal 8.9-11.1 [facility] Comment on above: Performed By: #### 2 298090 #### [facility] [address] [place] [address] Chloride [Moles/Vol] 105 mmol/L Normal 101-111 [facility] Comment on above: Performed By: #### 2 757192 #### [facility] [address] [place] [address] CO2 [Moles/Vol] 27 mmol/L Normal 21-31 [facility] Comment on above: Performed By: #### 2 [id number] #### [facility] [address] [place] [address] Creatinine [Mass/Vol] 0.5 mg/dL Normal 0.5-1.3 [facility] Comment on above: Performed By: #### 2 [id number] #### [facility] [address] [place] [address] Globulin (S) [Mass/Vol] 3.5 g/dL Normal 1.4-4.0 [facility] Comment on above: Performed By: #### 2 107084 #### [facility] [address] [place] [address] Glucose [Mass/Vol] 96 mg/dL Normal 55-199 [facility] Comment on above: Performed By: #### 2 [id number] #### [facility] [address] [place] [address] Potassium [Moles/Vol] 4.4 mmol/L Normal 3.5-5.3 [facility] Comment on above: Performed By: #### 2 990774 #### [facility] [address] [place] [address] Protein [Mass/Vol] 7.1 g/dL Normal 6.0-7.8 [facility] Comment on above: Performed By: #### 2 083099 #### [facility] [address] [place] [address] Sodium [Moles/Vol] 136 mmol/L Normal 135-145 [facility] Comment on above: Performed By: #### 2 864021 #### [facility] [address] [place] [address] Urea nitrogen [Mass/Vol] 12 mg/dL Normal 5-21 [facility] Comment on above: Performed By: #### 2 [id number] #### [facility] [address] [place] [address] Urea nitrogen/Creatinine [Mass ratio] 24 No Units High 10-20 [facility] Comment on above: Performed By: #### 2 [id number] #### [facility] [address] [place] [address] PT & PTTon 11-11-2024 aPTT Coag (PPP) [Time] 38.8 second(s) High 25.1-36.5 [facility] Comment on above: Result Comment: Para [...] the same coagulation reagent and instrumentation as [facility]. Currently there are no coagulation studies available worldwide for children to 14 days, and no normal ranges. Heparin therapeutic range (represented by Anti-Factor Xa activity of 0.2 - 0.4 U/mL) corresponds to PTT of 56.6 - 109.0 sec. Performed By: #### 1 [id number] #### [facility] [address] [place] [address] INR Coag (PPP) [Relative time] 1.33 {INR} Invalid Interpretation Code [facility] Comment on above: Result Comment: INR results are specifically intended to assess patients stabilized on long-term Anticoagulation therapy suggested INR???s ???Less Intensive Anticoagulation??? 2.0 ??? 3.0 Conventional Range 3.0 ??? 4.5 Performed By: #### 1 [id number] #### [facility] [address] [place] [address] PT Coag (PPP) [Time] 14.9 second(s) High 9.4-12.5 [facility] Comment on above: Result Comment: 15 [...] the same coagulation reagent and instrumentation as [facility]. Currently there are no coagulation studies available worldwide for children to 14 days, and no normal ranges. Performed By: #### 1 [id number] #### [facility] [address] [place] [address] Liveron 11-11-2024 US Liver Exam Date/Time: 11/11/2024 [...] MD Transcribed by: JUNIOR Technologist: LEONARDA Normal [facility] eGFRon 11-11-2024 eGFR 132 mL/min/1.73 m2 Normal >=59 [facility] Comment on above: Performed By: #### 1 [id number] #### [facility] [address] [place] [address] Ambulatory Visit Summaryon 0 10-05-2024 Ambulatory Visit [...] EDT With: Carrol MULTANI, Mario Xiong Where: [facility] [address] [place] [address] [place] [address]- Thursday 8:40 AM EDT With: Vic Carrion Where: [facility] [address], [place] [address] 2:40 PM EST With: Kavon Lu DO Where: [facility] You Need to Schedule the Following Appointments Follow Up with Vic Carrion, [facility], MED When: In 6 months Comments: sooner if needed. keep specialists appointments. Where: [address], [address] [facility] [address] [place] [phone] Medications What How Much When Why Instructions Unchanged carvedilol (Coreg 6.25 mg Tab) 1 Tablets By Mouth 2 times a day HTN (hypertension) Pickup at [facility] Unchanged furosemide (furosemide 20 mg Tab) 1 Tablets By Mouth Every day Unchanged magnesium citrate By Mouth Unchanged Misc Prescription (BP cuff device and appropriate size please) See instructions HTN (hypertension) BP Device/ machine and cuff (size appropriate) Unchanged Misc Prescription (lactulose (lactulose 10 g/ 15 mL Oral Syrup)) 0 Unchanged Misc Prescription (Misc DME Prescription) See instructions [place] SAP Dressing 4 x 4 dressing Unchanged Misc Prescription (Misc DME Prescription) See instructions LiquidIV hydration Unchanged Misc Prescription (Misc DME Prescription) See instructions Muscle & joint balm CBD 880mg Unchanged naloxone (Narcan 4 mg/ 0.1 mL nasal spray) 4 Milligram Nasal Inhalation As Directed Pain for suspected overdose symptoms Pickup at [facility] Unchanged ondansetron (Zofran ODT 4 mg Tab) 1 Tablets By Mouth 3 times a day as needed for Nausea Nausea Unchanged oxycodone (oxyCODONE 5 mg Tab) 0.5 tab By Mouth Every 6 hours as needed for for pain Peripheral vascular disease Leg pain for leg pain- severe pain only Pickup at [facility] Unchanged spironolactone (spironolactone 50 mg Tab) 1 Tablets By Mouth Every day Pharmacy Information [facility]: [address] [place], [place] [id number] [phone] Allergies Definity (Back Pain) amoxicillin (Unknown) penicillin [...] experience wi (more content not included)... Normal [facility] Family Medicine Office/Clini c Noteon 10-05-2024 [...] states he saw a vascular doctor in [place] from when he was at [facility]. 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 He denies numbness and tingling. He denies [...] cellulitis Patient went to a specialist in [place]- Vascular Dr Bertrand - Angiogram was done, [...] with hematology.- [facility] Liver enzymes are elevated with recent lab work but trends up and down. patient has stopped (more content not included)... Normal [facility] Comment on above: Result Comment: Elec tronically Signed By: Vic Carrion\.br\Date and Time Signed: 10/05/24 09:53 EST Free K+L Lt Chains,Qn,Son Immunoglobulin light chains.kappa.free (S) [Mass/Vol] 21.1 mg/L High 3.3-19.4 [facility] Comment on above: Performed By: #### 2 [id number] #### [facility] Laboratory [address] [place] [address] Immunoglobulin light chains.kappa.free/Im munoglobulin light chains.lambda.free (S) [Mass ratio] 1.50 Invalid Interpretation Code 0.26-1.65 [facility] Comment on above: Result Comment: Perf ormed at: [facility] [address] [id number] PhD Poncho Prater Performed By: #### 2 [id number] #### [facility] [address] [place] [address] Immunoglobulin light chains.lambda.free [Mass/Vol] 14.1 mg/L Invalid Interpretation Code 5.7-26.3 [facility] Comment on above: Performed By: #### 2 [id number] #### [facility] [address] [place] [address] Haptoglobinon 09-20-2024 Haptoglobin [Mass/Vol] mg/dL Low 17-317 [facility] Comment on above: Result Comment: Perf ormed at: [facility] [address] [id number] PhD Famisaiahcharmaine Prater Performed By: #### 2 [id number] #### [facility] [address] [place] [address] MELLISA and PE, Serumon 09-20-19 25 Albumin [Mass/Vol] 3.4 g/dL Invalid Interpretation Code 2.9-4.4 [facility] Comment on above: Performed By: #### 1 [id number] #### [facility] [address] [place] [address] Albumin/Globulin [Mass ratio] 1.0 {ratio} Invalid Interpretation Code 0.7-1.7 [facility] Comment on above: Performed By: #### 1 [id number] #### [facility] [address] [place] [address] Alpha 1 globulin Elph [Mass/Vol] 0.2 g/dL Invalid Interpretation Code 0.0-0.4 [facility] Comment on above: Performed By: #### 1 [id number] #### [facility] [address] [place] [address] Alpha 2 globulin Elph [Mass/Vol] 0.5 g/dL Invalid Interpretation Code 0.4-1.0 [facility] Comment on above: Performed By: #### 1 [id number] #### [facility] [address] [place] [address] Beta globulin Elph [Mass/Vol] 1.0 g/dL Invalid Interpretation Code 0.7-1.3 [facility] Comment on above: Performed By: #### 1 [id number] #### [facility] [address] [place] [address] Gamma globulin Elph [Mass/Vol] 1.9 g/dL High 0.4-1.8 [facility] Comment on above: Performed By: #### 1 [id number] #### [facility] [address] [place] [address] Globulin (S) [Mass/Vol] 3.7 g/dL Invalid Interpretation Code 2.2-3.9 [facility] Comment on above: Performed By: #### 1 [id number] #### [facility] [address] [place] [address] IgA [Mass/Vol] 653 mg/dL High 90-386 [facility] Comment on above: Performed By: #### 1 [id number] #### [facility] [address] [place] [address] IgG [Mass/Vol] 1726 mg/dL High 603-1613 [facility] Comment on above: Performed By: #### 1 [id number] #### [facility] [address] [place] [address] IgM [Mass/Vol] 72 mg/dL Invalid Interpretation Code 20-172 [facility] Comment on above: Performed By: #### 1 [id number] #### [facility] [address] [place] [address] Interpretation IEP [Interp] Comment Invalid Interpretation Code [facility] Comment on above: Result Comment: No m onoclonality detected. Performed By: #### 1 [id number] #### [facility] [address] [place] [address] Laboratory comment Parth (Report) Comment Invalid Interpretation Code [facility] Comment on above: Result Comment: Prot ein electrophoresis scan will follow via computer, mail, or 8th grade teacher delivery. Performed at: [address] [id number] PhD Poncho Prater Performed By: #### 1 [id number] #### [facility] [address] [place] [address] Protein [Mass/Vol] 7.1 g/dL Invalid Interpretation Code 6.0-8.5 [facility] Comment on above: Performed By: #### 1 [id number] #### [facility] [address] [place] [address] Protein.monoclonal Elph [Mass/Vol] Not Observed Invalid Interpretation Code Not Observed [facility] Comment on above: Performed By: #### 1 [id number] #### [facility] [address] [place] [address] CBC w/ Auto Diffon 5 Basophils/100 WBC (Bld) 0.6 % Normal 0.0-2.0 [facility] Comment on above: Performed By: #### 2 [id number] #### [facility] [address] [place] [address] Basophils/Leukocytes Auto (Bld) [Pure # fraction] 0.0 E9/L Normal 0.0-0.2 [facility] Comment on above: Performed By: #### 2 [id number] #### [facility] [address] [place] [address] Eosinophils (Bld) [#/Vol] 0.2 E9/L Normal 0.0-0.5 [facility] Comment on above: Performed By: #### 2 882507 #### [facility] [address] [place] [address] Eosinophils/100 WBC (Bld) 3.5 % Normal 0.0-8.0 [facility] Comment on above: Performed By: #### 2 [id number] #### [facility] [address] [place] [address] Erythrocyte distribution width (RBC) [Ratio] 15.1 % High 10.9-14.2 [facility] Comment on above: Performed By: #### 2 [id number] #### [facility] [address] [place] [address] Hematocrit (Bld) [Volume fraction] 38.8 % Normal 37.7-49.0 [facility] Comment on above: Performed By: #### 2 [id number] #### [facility] [address] [place] [address] Hemoglobin (Bld) [Mass/Vol] 13.9 g/dL Normal 13.5-17.5 [facility] Comment on above: Performed By: #### 2 560777 #### [facility] [address] [place] [address] Lymphocytes (Bld) [#/Vol] 1.1 E9/L Normal 1.0-4.0 [facility] Comment on above: Performed By: #### 2 [id number] #### [facility] [address] [place] [address] Lymphocytes/100 WBC (Bld) 25.0 % Normal 14.0-50.0 [facility] Comment on above: Performed By: #### 2 267858 #### [facility] [address] [place] [address] MCH (RBC) [Entitic mass] 37.0 pg High 27.0-34.0 [facility] Comment on above: Performed By: #### 2 948327 #### [facility] [address] [place] [address] MCHC (RBC) [Mass/Vol] 35.8 g/dL Normal 31.4-36.0 [facility] Comment on above: Performed By: #### 2 [id number] #### [facility] [address] [place] [address] MCV (RBC) [Entitic vol] 103.5 fL High 80.0-100.0 [facility] Comment on above: Performed By: #### 2 979645 #### [facility] [address] [place] [address] Monocytes (Bld) [#/Vol] 0.4 E9/L Normal 0.2-1.0 [facility] Comment on above: Performed By: #### 2 775114 #### [facility] [address] [place] [address] Neutrophils (Bld) [#/Vol] 2.8 E9/L Normal 2.0-7.5 [facility] Comment on above: Performed By: #### 2 [id number] #### [facility] [address] [place] [address] Neutrophils/100 WBC (Bld) 62.7 % Normal 36.0-75.0 [facility] Comment on above: Performed By: #### 2 339374 #### [facility] [address] [place] [address] Platelet 93.0 E9/L Low 150.0-500.0 [facility] Comment on above: Result Comment: Tierney pheral smear review performed. Performed By: #### 2 [id number] #### [facility] [address] [place] [address] Platelet mean volume (Bld) [Entitic vol] 7.7 fL Normal 6.4-10.8 [facility] Comment on above: Performed By: #### 2 011103 #### [facility] [address] [place] [address] RBC (Bld) [#/Vol] 3.7 E12/L Low 4.3-5.9 [facility] Comment on above: Performed By: #### 2 [id number] #### [facility] Laboratory [address] [place] [address] WBC corrected for nucl RBC Auto (Bld) [#/Vol] 4.5 E9/L Normal 4.0-11.0 [facility] Comment on above: Performed By: #### 2 [id number] #### [facility] Laboratory [address] [place] [address] CHEMISTRYOrdered By: SYSTEM SYSTEM on 09-16-2024 Albumin [...] 09-16-2024 Albumin [Mass/Vol] 3.7 g/dL Normal 3.3-5.0 [facility] Comment on above: Performed By: #### 2 [id number] #### [facility] Laboratory [address] [place] [address] Albumin/Globulin (S) [Mass conc ratio] 1.0 Low 1.1-2.2 [facility] Comment on above: Performed By: #### 2 [id number] #### [facility] Laboratory [address] [place] [address] ALP [Catalytic activity/Vol] 178 Int._Unit/L High 21-98 [facility] Comment on above: Performed By: #### 2 [id number] #### [facility] Laboratory [address] [place] [address] ALT No additional P-5'-P [Catalytic activity/Vol] 49 Int._Unit/L High 6-46 [facility] Comment on above: Performed By: #### 2 [id number] #### [facility] Laboratory [address] [place] [address] Anion gap [Moles/Vol] 10 mmol/L Normal 6-16 [facility] Comment on above: Performed By: #### 2 141914 #### [facility] Laboratory [address] [place] [address] AST [Catalytic activity/Vol] 72 Int._Unit/L High 5-43 [facility] Comment on above: Performed By: #### 2 [id number] #### [facility] Laboratory [address] [place] [address] Bilirubin [Mass/Vol] 5.2 mg/dL High 0.0-1.1 [facility] Comment on above: Performed By: #### 2 025383 #### [facility] Laboratory [address] [place] [address] Calcium [Mass/Vol] 9.4 mg/dL Normal 8.9-11.1 [facility] Comment on above: Performed By: #### 2 068182 #### [facility] Laboratory [address] [place] [address] Chloride [Moles/Vol] 100 mmol/L Low 101-111 [facility] Comment on above: Performed By: #### 2 [id number] #### [facility] Laboratory [address] [place] [address] CO2 [Moles/Vol] 28 mmol/L Normal 21-31 [facility] Comment on above: Performed By: #### 2 704665 #### [facility] Laboratory [address] [place] [address] Creatinine [Mass/Vol] 0.5 mg/dL Normal 0.5-1.3 [facility] Comment on above: Performed By: #### 2 599072 #### [facility] Laboratory [address] [place] [address] Globulin (S) [Mass/Vol] 3.7 g/dL Normal 1.4-4.0 [facility] Comment on above: Performed By: #### 2 968737 #### [facility] Laboratory [address] [place] [address] Glucose [Mass/Vol] 125 mg/dL Normal 55-199 [facility] Comment on above: Performed By: #### 2 625608 #### [facility] Laboratory [address] [place] [address] Potassium [Moles/Vol] 4.1 mmol/L Normal 3.5-5.3 [facility] Comment on above: Performed By: #### 2 954285 #### [facility] Laboratory [address] [place] [address] Protein [Mass/Vol] 7.4 g/dL Normal 6.0-7.8 [facility] Comment on above: Performed By: #### 2 [id number] #### [facility] Laboratory [address] [place] [address] Sodium [Moles/Vol] 134 mmol/L Low 135-145 [facility] Comment on above: Performed By: #### 2 173665 #### [facility] Laboratory [address] [place] [address] Urea nitrogen [Mass/Vol] 9 mg/dL Normal 5-21 [facility] Comment on above: Performed By: #### 2 359356 #### [facility] Laboratory [address] [place] [address] Urea nitrogen/Creatinine [Mass ratio] 18 No Units Normal 10-20 [facility] Comment on above: Performed By: #### 2 [id number] #### [facility] Laboratory [address] [place] [address] Ferritinon 09-16-2024 Ferritin [Mass/Vol] 343 ng/mL High 24-336 [facility] Comment on above: Performed By: #### 2 835903 #### [facility] Laboratory [address] [place] [address] HEMATOLOGYOrdered By: SYSTEM SYSTEM on 09-16-2024 Basophils/100 [...] 09-16-2024 Iron [Mass/Vol] 279 microgram/dL High 35-153 [facility] Comment on above: Performed By: #### 2 568749 #### [facility] Laboratory [address] [place] [address] Iron Saturationon 09-16-2024 Iron binding capacity [Mass/Vol] 294 microgram/dL Normal 250-400 [facility] Comment on above: Performed By: #### 2 583823 #### [facility] Laboratory [address] [place] [address] Iron saturation [Mass fraction] 95 % High 20-50 [facility] Comment on above: Performed By: #### 2 696717 #### [facility] Laboratory [address] [place] [address] LDHon 09-16-2024 LDH 278 Int._Unit/L High 93-218 [facility] Comment on above: Performed By: #### 2 460258 #### [facility] Laboratory [address] [place] [address] Transferrinon 09-16-2024 Transferrin [Mass/Vol] 210 mg/dL Normal 200-370 [facility] Comment on above: Order Comment: Trans rojas order added by Discern Rule: gl_ftmc_add_iron_trans . Performed By: #### 2 332889 #### [facility] Laboratory [address] [place] [address] eGFRon 09-16-2024 eGFR 132 mL/min/1.73 m2 Normal >=59 [facility] Comment on above: Performed By: #### 1 [id number] #### [facility] Laboratory [address] [place] [address] Ambulatory Visit Summaryon 1 10-20-2023 Ambulatory Visit [...] Oncology Thursday 8:15 AM EDT With: Where: [facility] Thursday 9:15 AM EDT With: Carrol MULTANI, Mario Xiong Where: [facility] [address] [place] [address] [address] [place] [address]- You Need to Complete the Following Ammonia [...] Misc Prescription (Misc DME Prescription) See instructions [place] [employer] Dressing 4 x 4 dressing Contact [...] (Back Pain (more content not included)... Normal [facility] Family Medicine Office/Clini c Noteon 08-19-2024 [...] with hematology.- he has since stopped seeing [facility] Hepatology patient patient has stopped taking his [...] Daily, # 90 tab(s), Refills(s) 3, Pharmacy: [id number], 170, cm, 04/29/24 9:16:00 EDT, Height/Length Dosing, 70.1, kg, 04/29/24 9:16:00 EDT, Weight Dosing Ammonia Level 3. Esophageal varices (I85.00: Esophageal varices without bleeding) Continue to follow with Dr. Evans, encouraged good blood pressure control, avoiding any alcohol or esophageal irritation, continue to monitor platelets for signs of bleeding 4. HTN (hypertension) (I10: Essential (primary) hypertension) Bloo (more content not included)... Normal [facility] Comment on above: Result Comment: Elec tronically Signed By: Loreta Padilla\bryan\Date and Time Signed: 08/19/24 17:26 EST CBC w/ Auto Diffon 4 Basophils/100 WBC (Bld) 0.9 % Normal 0.0-2.0 [facility] Comment on above: Performed By: #### 2 [id number] #### [facility] Laboratory [address] [place] [address] Basophils/Leukocytes Auto (Bld) [Pure # fraction] 0.0 E9/L Normal 0.0-0.2 [facility] Comment on above: Performed By: #### 2 392363 #### [facility] Laboratory [address] [place] [address] Eosinophils (Bld) [#/Vol] 0.2 E9/L Normal 0.0-0.5 [facility] Comment on above: Performed By: #### 2 780892 #### [facility] Laboratory [address] [place] [address] Eosinophils/100 WBC (Bld) 3.8 % Normal 0.0-8.0 [facility] Comment on above: Performed By: #### 2 134538 #### [facility] Laboratory [address] [place] [address] Erythrocyte distribution width (RBC) [Ratio] 15.7 % High 10.9-14.2 [facility] Comment on above: Performed By: #### 2 169962 #### [facility] Laboratory [address] [place] [address] Hematocrit (Bld) [Volume fraction] 37.6 % Low 37.7-49.0 [facility] Comment on above: Performed By: #### 2 308762 #### [facility] Laboratory [address] [place] [address] Hemoglobin (Bld) [Mass/Vol] 13.1 g/dL Low 13.5-17.5 [facility] Comment on above: Performed By: #### 2 241000 #### [facility] Laboratory [address] [place] [address] Lymphocytes (Bld) [#/Vol] 1.1 E9/L Normal 1.0-4.0 [facility] Comment on above: Performed By: #### 2 575763 #### [facility] Laboratory [address] [place] [address] Lymphocytes/100 WBC (Bld) 24.1 % Normal 14.0-50.0 [facility] Comment on above: Performed By: #### 2 963154 #### [facility] Laboratory [address] [place] [address] MCH (RBC) [Entitic mass] 36.9 pg High 27.0-34.0 [facility] Comment on above: Performed By: #### 2 709140 #### [facility] Laboratory [address] [place] [address] MCHC (RBC) [Mass/Vol] 34.9 g/dL Normal 31.4-36.0 [facility] Comment on above: Performed By: #### 2 017157 #### [facility] Laboratory [address] [place] [address] MCV (RBC) [Entitic vol] 105.7 fL High 80.0-100.0 [facility] Comment on above: Performed By: #### 2 [id number] #### [facility] Laboratory [address] [place] [address] Monocytes (Bld) [#/Vol] 0.5 E9/L Normal 0.2-1.0 [facility] Comment on above: Performed By: #### 2 690680 #### [facility] Laboratory [address] [place] [address] Neutrophils (Bld) [#/Vol] 2.8 E9/L Normal 2.0-7.5 [facility] Comment on above: Performed By: #### 2 205419 #### [facility] Laboratory [address] [place] [address] Neutrophils/100 WBC (Bld) 60.0 % Normal 36.0-75.0 [facility] Comment on above: Performed By: #### 2 041292 #### [facility] Laboratory [address] [place] [address] Platelet mean volume (Bld) [Entitic vol] 8.8 fL Normal 6.4-10.8 [facility] Comment on above: Performed By: #### 2 148747 #### [facility] Laboratory [address] [place] [address] Platelets (Bld) [#/Vol] 70.0 E9/L Low 150.0-500.0 [facility] Comment on above: Result Comment: Tierney pheral smear review performed. Performed By: #### 2 755190 #### [facility] Laboratory [address] [place] [address] RBC (Bld) [#/Vol] 3.6 E12/L Low 4.3-5.9 [facility] Comment on above: Performed By: #### 2 531444 #### [facility] Laboratory [address] [place] [address] WBC corrected for nucl RBC Auto (Bld) [#/Vol] 4.7 E9/L Normal 4.0-11.0 [facility] Comment on above: Performed By: #### 2 296517 #### [facility] Laboratory [address] [place] [address] CHEMISTRYOrdered By: SYSTEM SYSTEM on 08-11-2024 Albumin [...] Erythropoietin (EPO) Qn 26.3 mIU/mL High 2.6-18.5 [facility] Comment on above: Result Comment: Smith Zylie the [employer]arel DxI 800 Immunoassay System Values obtained with different assay methods or kits cannot be used interchangeably. Results cannot be interpreted as absolute evidence of the presence or absence of malignant disease. Performed at: [facility] [address], [place] [id number] PhD [employer] Prater Performed By: #### 1 [id number] #### [facility] Laboratory [address] [place] [address] Haptoglobinon 07-11-2024 Haptoglobin [Mass/Vol] mg/dL Low 17-317 [facility] Comment on above: Result Comment: Perf ormed at: [facility] [address], [place] [id number] PhD [employer]ater Performed By: #### 2 [id number] #### [facility] Laboratory [address] [place] [address] ABSCon 07-09-2024 ABSC Gel Interp Negative Normal [facility] Comment on above: Performed By: #### 1 [id number] #### [facility] Laboratory [address] [place] [address] BLOOD BANKOrdered By: Maria Isabel bain on 07-09-2024 ABSC Gel Interp Negative (07/09/24 8:29 AM) Normal FT BB Subsection AYLIN IgG/C3d Tube Negative (07/09/24 8:29 AM) Normal FT BB Subsection CBC w/ Auto Diffon 4 Basophils/100 WBC (Bld) 0.8 % Normal 0.0-2.0 [facility] Comment on above: Performed By: #### 2 [id number] #### [facility] Laboratory [address] [place] [address] Basophils/Leukocytes Auto (Bld) [Pure # fraction] 0.0 E9/L Normal 0.0-0.2 [facility] Comment on above: Performed By: #### 2 397812 #### [facility] Laboratory [address] [place] [address] Eosinophils (Bld) [#/Vol] 0.2 E9/L Normal 0.0-0.5 [facility] Comment on above: Performed By: #### 2 691646 #### [facility] Laboratory [address] [place] [address] Eosinophils/100 WBC (Bld) 5.8 % Normal 0.0-8.0 [facility] Comment on above: Performed By: #### 2 [id number] #### [facility] Laboratory [address] [place] [address] Erythrocyte distribution width (RBC) [Ratio] 15.1 % High 10.9-14.2 [facility] Comment on above: Performed By: #### 2 128818 #### [facility] Laboratory [address] [place] [address] Hematocrit (Bld) [Volume fraction] 36.8 % Low 37.7-49.0 [facility] Comment on above: Performed By: #### 2 945284 #### [facility] Laboratory [address] [place] [address] Hemoglobin (Bld) [Mass/Vol] 12.7 g/dL Low 13.5-17.5 [facility] Comment on above: Performed By: #### 2 403184 #### [facility] Laboratory [address] [place] [address] Lymphocytes (Bld) [#/Vol] 0.9 E9/L Low 1.0-4.0 [facility] Comment on above: Performed By: #### 2 162051 #### [facility] Laboratory [address] [place] [address] Lymphocytes/100 WBC (Bld) 23.1 % Normal 14.0-50.0 [facility] Comment on above: Performed By: #### 2 213482 #### [facility] Laboratory [address] [place] [address] MCH (RBC) [Entitic mass] 36.7 pg High 27.0-34.0 [facility] Comment on above: Performed By: #### 2 927062 #### [facility] Laboratory [address] [place] [address] MCHC (RBC) [Mass/Vol] 34.5 g/dL Normal 31.4-36.0 [facility] Comment on above: Performed By: #### 2 905106 #### [facility] Laboratory [address] [place] [address] MCV (RBC) [Entitic vol] 106.4 fL High 80.0-100.0 [facility] Comment on above: Performed By: #### 2 283173 #### [facility] [address] [place] [address] Monocytes (Bld) [#/Vol] 0.5 E9/L Normal 0.2-1.0 [facility] Comment on above: Performed By: #### 2 857566 #### [facility] Laboratory [address] [place] [address] Neutrophils (Bld) [#/Vol] 2.1 E9/L Normal 2.0-7.5 [facility] Comment on above: Performed By: #### 2 123887 #### [facility] Laboratory [address] [place] [address] Neutrophils/100 WBC (Bld) 57.0 % Normal 36.0-75.0 [facility] Comment on above: Performed By: #### 2 855295 #### [facility] Laboratory [address] [place] [address] Platelet mean volume (Bld) [Entitic vol] 9.5 fL Normal 6.4-10.8 [facility] Comment on above: Performed By: #### 2 688991 #### [facility] Laboratory [address] [place] [address] Platelets (Bld) [#/Vol] 67.0 E9/L Low 150.0-500.0 [facility] Comment on above: Result Comment: Tierney pheral smear review performed. Performed By: #### 2 [id number] #### [facility] Laboratory [address] [place] [address] RBC (Bld) [#/Vol] 3.5 E12/L Low 4.3-5.9 [facility] Comment on above: Performed By: #### 2 721789 #### [facility] [address] [place] [address] WBC corrected for nucl RBC Auto (Bld) [#/Vol] 3.7 E9/L Low 4.0-11.0 [facility] Comment on above: Performed By: #### 2 [id number] #### [facility] Laboratory [address] [place] [address] CHEMISTRYOrdered By: SYSTEM SYSTEM on 07-09-2024 Albumin [...] 07-09-2024 Albumin [Mass/Vol] 3.1 g/dL Low 3.3-5.0 [facility] Comment on above: Performed By: #### 2 401752 #### [facility] [address] [place] [address] Albumin/Globulin (S) [Mass conc ratio] 0.9 Low 1.1-2.2 [facility] Comment on above: Performed By: #### 2 150496 #### [facility] [address] [place] [address] ALP [Catalytic activity/Vol] 192 Int._Unit/L High 21-98 [facility] Comment on above: Performed By: #### 2 749732 #### [facility] [address] [place] [address] ALT No additional P-5'-P [Catalytic activity/Vol] 33 Int._Unit/L Normal 6-46 [facility] Comment on above: Performed By: #### 2 766327 #### [facility] [address] [place] [address] Anion gap [Moles/Vol] 7 mmol/L Normal 6-16 [facility] Comment on above: Performed By: #### 2 595757 #### [facility] [address] [place] [address] AST [Catalytic activity/Vol] 56 Int._Unit/L High 5-43 [facility] Comment on above: Performed By: #### 2 [id number] #### [facility] Laboratory [address] [place] [address] Bilirubin [Mass/Vol] 3.1 mg/dL High 0.0-1.1 [facility] Comment on above: Performed By: #### 2 918459 #### [facility] Laboratory [address] [place] [address] Calcium [Mass/Vol] 8.2 mg/dL Low 8.9-11.1 [facility] Comment on above: Performed By: #### 2 444259 #### [facility] Laboratory [address] [place] [address] Chloride [Moles/Vol] 105 mmol/L Normal 101-111 [facility] Comment on above: Performed By: #### 2 927604 #### [facility] [address] [place] [address] CO2 [Moles/Vol] 26 mmol/L Normal 21-31 [facility] Comment on above: Performed By: #### 2 788459 #### [facility] [address] [place] [address] Creatinine [Mass/Vol] 0.5 mg/dL Normal 0.5-1.3 [facility] Comment on above: Performed By: #### 2 944283 #### [facility] [address] [place] [address] Globulin (S) [Mass/Vol] 3.5 g/dL Normal 1.4-4.0 [facility] Comment on above: Performed By: #### 2 277516 #### [facility] [address] [place] [address] Glucose [Mass/Vol] 171 mg/dL Normal 55-199 [facility] Comment on above: Performed By: #### 2 726071 #### [facility] Laboratory [address] [place] [address] Potassium [Moles/Vol] 4.0 mmol/L Normal 3.5-5.3 [facility] Comment on above: Performed By: #### 2 134713 #### [facility] [address] [place] [address] Protein [Mass/Vol] 6.6 g/dL Normal 6.0-7.8 [facility] Comment on above: Performed By: #### 2 362753 #### [facility] [address] [place] [address] Sodium [Moles/Vol] 134 mmol/L Low 135-145 [facility] Comment on above: Performed By: #### 2 218073 #### [facility] [address] [place] [address] Urea nitrogen [Mass/Vol] 10 mg/dL Normal 5-21 [facility] Comment on above: Performed By: #### 2 984286 #### [facility] Laboratory [address] [place] [address] Urea nitrogen/Creatinine [Mass ratio] 20 No Units Normal 10-20 [facility] Comment on above: Performed By: #### 2 567489 #### [facility] [address] [place] [address] AYLIN IgG/C3d.on 07-09-2024 AYLIN IgG/C3d Tube Negative Normal [facility] Comment on above: Performed By: #### 8 [id number] #### [facility] Laboratory [address] [place] [address] Ferritinon 07-09-2024 Ferritin [Mass/Vol] 272 ng/mL Normal 24-336 [facility] Comment on above: Performed By: #### 2 332274 #### [facility] [address] [place] [address] HEMATOLOGYOrdered By: SYSTEM SYSTEM on 07-09-2024 Basophils/100 [...] 07-09-2024 Iron [Mass/Vol] 212 microgram/dL High 35-153 [facility] Comment on above: Performed By: #### 2 050836 #### [facility] Laboratory [address] [place] [address] Iron Saturationon 07-09-2024 Iron binding capacity [Mass/Vol] 246 microgram/dL Low 250-400 [facility] Comment on above: Performed By: #### 2 438903 #### [facility] [address] [place] [address] Iron saturation [Mass fraction] 86 % High 20-50 [facility] Comment on above: Performed By: #### 2 012977 #### [facility] Laboratory [address] [place] [address] LDHon 07-09-2024 LDH 226 Int._Unit/L High 93-218 [facility] Comment on above: Performed By: #### 2 228407 #### [facility] [address] [place] [address] Retic Counton 07-09-2024 Reticulocytes/100 RBC (Bld) 1.9 % Normal 0.5-2.2 [facility] Comment on above: Performed By: #### 2 [id number] #### [facility] Laboratory [address] [place] [address] Transferrinon 07-09-2024 Transferrin [Mass/Vol] 176 mg/dL Low 200-370 [facility] Comment on above: Performed By: #### 2 453046 #### [facility] Laboratory [address] [place] [address] eGFRon 07-09-2024 eGFR 132 mL/min/1.73 m2 Normal >=59 [facility] Comment on above: Performed By: #### 1 [id number] #### [facility] [address] [place] [address] Ambulatory Visit Summaryon 1 Ambulatory Visit Summary [...] 5 mg Tab) potassium chloride (Potassium Chloride (Ixf-Ednl-Kgt M20) 20 mEq oral tablet, extended release) [...] 3:00 PM EST With: Loreta Padilla Where: [facility] [address], [place] [address]- Thursday 9:15 AM EDT With: Carrol MULTANI, Mario Xiong Where: [facility] [address] [place] [address]- Medications What How Much When Why Instructions New carvedilol (Coreg 6.25 mg Tab) 1 Tablets By Mouth 2 times a day Refills: 3 Pickup at [facility] Unchanged bifidobacterium-lactoba cillus (bifidobacterium-lactob acillus oral [...] Misc Prescription (Misc DME Prescription) See instructions [place] SAP Dressing 4 x 4 dressing Contact [...] or concerns Unchanged potassium chloride (Potassium Chloride (Hiw-Shjp-Uqt M20) 20 mEq oral tablet, extended release) 1 Tablets By Mouth 2 times a day Contact prescribing physician if questions or concerns Unchanged spironolactone (spironolactone 50 mg Tab) 1 Tablets By Mouth Every day Contact prescribing physician if questions o (more content not included)... Normal [facility] Gastroenterology Office/Clin ic Noteon 06-09-2024 Gastroenterology Office/Clinic Note Gastroenterology Office/Clinic Note Chief Complaint Cirrhosis follow up HPI Staff Patient is a(n) year old male who presents today for a(n) 1 month follow-up. US/labs ordered for 11/2024. Recieved liver bx report from [facility], placed in chart. Need to review bx, US and labs to determine transplant status. Denies blood thinners. Denies GLP-1 agonists. Last visit 05/12/24 w/Dr. Evans: Assessment/Plan 1. Liver cirrhosis, alcoholic (K70.30: Alcoholic cirrhosis of liver without ascites) Sober for more than 2.5 years Liver biopsy was done at [facility], gradient was 14 mmHg Liver biopsy report [...] fL High (05/24/24) Chloride: 102 mmol/L (05/24/24) Traverse Absolute: 0.6 E9/L (05/24/24) CO2: 25 mmol/L (05/24/24) Traverse Auto: 9.6 % (05/24/24) Creatinine: 0.5 mg/dL [...] 2.5 years Liver biopsy was done at [facility], gradient was 14 mmHg Liver biopsy report is reported steatosis and cirrhosis a (more content not included)... Normal [facility] Comment on above: Result Comment: Elec [...] MD Transcribed by: 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 Razo [facility] .Interpretation:on HCV Ab IA Ql Comment Invalid Interpretation Code [facility] Comment on above: Result Comment: Not infected with HCV unless early or acute infection is suspected (which may be delayed in an immunocompromised individual), or other evidence exists to indicate HCV infection. Performed at: [facility] [place] [address], [place] [id number] PhD Poncho Prater Performed By: #### 2 [id number] #### [facility] [address] [place] [address] AFPon 05-25-2024 AFP.tumor marker [Mass/Vol] 4.1 ng/mL Invalid Interpretation Code 0.0-6.9 [facility] Comment on above: Result Comment: [employer] Electrochemiluminescence Immunoassay (ECLIA) Values obtained with different assay methods or kits cannot be used interchangeably. Results cannot be interpreted as absolute evidence of the presence or absence of malignant disease. This test is not interpretable in females. Performed at: [facility] [employer] [id number] PhD Poncho Prater Performed By: #### 2 [id number] #### [facility] [address] [place] [address] AMA Ab Scron 05-25-2024 Mitochondria M2 IgG Qn (S) <20.0 Invalid Interpretation Code 0.0-20.0 [facility] Comment on above: Result Comment: Nega tive 0.0 - 20.0 Equivocal 20.1 - 24.9 Positive >24.9 Mitochondrial (M2) Antibodies are found in 90-96% of patients with primary biliary cirrhosis. Performed at: [address] [id number] PhD Poncho Prater Performed By: #### 1 [id number] #### [facility] [address] [place] [address] GEOVANNA w/Reflex if POSon 2023 Nuclear Ab Ql (S) Negative Invalid Interpretation Code Negative [facility] Comment on above: Result Comment: Perf ormed at: [address] [id number] PhD Poncho Prater Performed By: #### 1 [id number] #### [facility] [address] [place] [address] Nuclear Ab Ql (S) Negative Invalid Interpretation Code Negative [facility] Comment on above: Result Comment: Perf ormed at: [address] [id number] PhD Poncho Prater Performed By: #### 1 [id number] #### [facility] [address] [place] [address] Acute Hepatitis A B C Panelo n 05-25-2024 HAV IgM IA Ql Negative Invalid Interpretation Code Negative [facility] Comment on above: Result Comment: A ne gative anti-HAV IgM result suggests no recent or current HAV infection. Performed By: #### 3 [id number] #### [facility] [address] [place] [address] HBV core IgM IA Ql Negative Invalid Interpretation Code Negative [facility] Comment on above: Performed By: #### 3 [id number] #### [facility] [address] [place] [address] HBV surface Ag IA Ql Negative Invalid Interpretation Code Negative [facility] Comment on above: Performed By: #### 3 [id number] #### [facility] [address] [place] [address] HCV IgG IA Ql Non-Reactive Invalid Interpretation Code Non Reactive [facility] Comment on above: Result Comment: Perf ormed at: [address] [id number] PhD Poncho Prater Performed By: #### 3 [id number] #### [facility] [address] [place] [address] Alpha 1 Antitrpon 05-25-2024 Alpha 1 antitrypsin [Mass/Vol] 153 mg/dL Invalid Interpretation Code 95-164 [facility] Comment on above: Result Comment: Perf ormed at: [address] [id number] PhD Poncho Prater Performed By: #### 1 [id number] #### [facility] [address] [place] [address] Alpha 1 antitrypsin [Mass/Vol] 159 mg/dL Invalid Interpretation Code 95-164 [facility] Comment on above: Result Comment: Perf ormed at: [address] [id number] PhD Poncho Prater Performed By: #### 1 [id number] #### [facility] [address] [place] [address] Ceruloplasminon 05-25-2024 Ceruloplasmin [Mass/Vol] 18.6 mg/dL Invalid Interpretation Code 16.0-31.0 [facility] Comment on above: Result Comment: Perf ormed at: [address] [id number] PhD Poncho Prater Performed By: #### 1 [id number] #### [facility] [address] [place] [address] Ceruloplasmin [Mass/Vol] 19.9 mg/dL Invalid Interpretation Code 16.0-31.0 [facility] Comment on above: Result Comment: Perf ormed at: [address] [id number] PhD Ottococharmaine Prater Performed By: #### 1 [id number] #### [facility] [address] [place] [address] Hep Bs Abon 05-25-2024 HBV surface Ab Ql (S) Non-Reactive Invalid Interpretation Code [facility] Comment on above: Result Comment: Non Reactive: Not immune to HBV infection. Equivocal: Unable to determine if anti-HBs is present at levels consistent with immunity. Reactive: Anti-HBs concentration detected at greater than 10 mIU/mL. Individual is considered to be immune to infection with HBV. Performed at: [address] [id number] [facility] Famcocharmaine Prater Performed By: #### 2 [id number] #### [facility] [address] [place] [address] Hepatitis A Virus (HAV) Anti body, Totalon 05-25-2024 HAV Ab IA Ql (S) Negative Invalid Interpretation Code Negative [facility] Comment on above: Result Comment: Comm ent: The HAV total antibody assay detects both IgG and IgM but does not differentiate between them. A negative result suggests susceptibility to infection. A positive result could be due to vaccination, previously resolved infection or active infection. Testing for HAV IgM should be performed if active HAV infection is suspected. [employer] [facility] offers profiles that will automatically reflex positive HAV total antibody results to IgM (e.g., panel #[id number] HAV Antibody w/ Rfx). Performed at: [address] [id number] PhD Ottococharmaine Prater Performed By: #### 1 [id number] #### [facility] [address] [place] [address] IgG, Quant.on 05-25-2024 IgG [Mass/Vol] 1784 mg/dL High 603-1613 [facility] Comment on above: Result Comment: Perf ormed at: [address] [id number] PhD Poncho Prater Performed By: #### 1 [id number] #### [facility] [address] [place] [address] Smooth Muscle Abon 4 Actin smooth muscle IgG Qn (S) 18 unit(s) Invalid Interpretation Code 0-19 [facility] Comment on above: Result Comment: Nega tive 0 - 19 Weak positive 20 - 30 Moderate to strong positive >30 Actin Antibodies are found in 52-85% of patients with autoimmune hepatitis or chronic active hepatitis and in 22% of patients with primary biliary cirrhosis. Performed at: [address] [id number] PhD Poncho Prater Performed By: #### 1 [id number] #### [facility] [address] [place] [address] Bili Directon 05-24-2024 Bilirubin.direct [Mass/Vol] 1.1 mg/dL High 0.0-0.4 [facility] Comment on above: Performed By: #### 2 [id number] #### [facility] [address] [place] [address] CBC w/ Auto Diffon 4 Basophils/100 WBC (Bld) 0.8 % Normal 0.0-2.0 [facility] Comment on above: Performed By: #### 2 [id number] #### [facility] [address] [place] [address] Basophils/Leukocytes Auto (Bld) [Pure # fraction] 0.0 E9/L Normal 0.0-0.2 [facility] Comment on above: Performed By: #### 2 [id number] #### [facility] [address] [place] [address] Eosinophils (Bld) [#/Vol] 0.2 E9/L Normal 0.0-0.5 [facility] Comment on above: Performed By: #### 2 [id number] #### [facility] [address] [place] [address] Eosinophils/100 WBC (Bld) 3.4 % Normal 0.0-8.0 [facility] Comment on above: Performed By: #### 2 [id number] #### [facility] [address] [place] [address] Erythrocyte distribution width (RBC) [Ratio] 16.9 % High 10.9-14.2 [facility] Comment on above: Performed By: #### 2 [id number] #### [facility] [address] [place] [address] Hematocrit (Bld) [Volume fraction] 35.2 % Low 37.7-49.0 [facility] Comment on above: Performed By: #### 2 [id number] #### [facility] [address] [place] [address] Hemoglobin (Bld) [Mass/Vol] 12.1 g/dL Low 13.5-17.5 [facility] Comment on above: Performed By: #### 2 [id number] #### [facility] [address] [place] [address] Lymphocytes (Bld) [#/Vol] 1.0 E9/L Normal 1.0-4.0 [facility] Comment on above: Performed By: #### 2 [id number] #### [facility] [address] [place] [address] Lymphocytes/100 WBC (Bld) 16.1 % Normal 14.0-50.0 [facility] Comment on above: Performed By: #### 2 [id number] #### [facility] [address] [place] [address] MCH (RBC) [Entitic mass] 36.0 pg High 27.0-34.0 [facility] Comment on above: Performed By: #### 2 [id number] #### [facility] [address] [place] [address] MCHC (RBC) [Mass/Vol] 34.3 g/dL Normal 31.4-36.0 [facility] Comment on above: Performed By: #### 2 [id number] #### [facility] [address] [place] [address] MCV (RBC) [Entitic vol] 104.9 fL High 80.0-100.0 [facility] Comment on above: Performed By: #### 2 [id number] #### [facility] [address] [place] [address] Monocytes (Bld) [#/Vol] 0.6 E9/L Normal 0.2-1.0 [facility] Comment on above: Performed By: #### 2 [id number] #### [facility] [address] [place] [address] Neutrophils (Bld) [#/Vol] 4.2 E9/L Normal 2.0-7.5 [facility] Comment on above: Performed By: #### 2 [id number] #### [facility] [address] [place] [address] Neutrophils/100 WBC (Bld) 70.1 % Normal 36.0-75.0 [facility] Comment on above: Performed By: #### 2 [id number] #### [facility] [address] [place] [address] Platelet mean volume (Bld) [Entitic vol] 9.0 fL Normal 6.4-10.8 [facility] Comment on above: Performed By: #### 2 [id number] #### [facility] [address] [place] [address] Platelets (Bld) [#/Vol] 81.0 E9/L Low 150.0-500.0 [facility] Comment on above: Result Comment: Tierney pheral smear review performed. Performed By: #### 2 [id number] #### [facility] [address] [place] [address] RBC (Bld) [#/Vol] 3.4 E12/L Low 4.3-5.9 [facility] Comment on above: Performed By: #### 2 [id number] #### [facility] [address] [place] [address] WBC corrected for nucl RBC Auto (Bld) [#/Vol] 6.0 E9/L Normal 4.0-11.0 [facility] Comment on above: Performed By: #### 2 [id number] #### [facility] [address] [place] [address] CHEMISTRYOrdered By: SYSTEM SYSTEM on 05-24-2024 Albumin [...] 05-24-2024 Albumin [Mass/Vol] 3.5 g/dL Normal 3.3-5.0 [facility] Comment on above: Performed By: #### 2 [id number] #### [facility] [address] [place] [address] Albumin/Globulin (S) [Mass conc ratio] 0.9 Low 1.1-2.2 [facility] Comment on above: Performed By: #### 2 [id number] #### [facility] [address] [place] [address] ALP [Catalytic activity/Vol] 219 Int._Unit/L High 21- [facility] Comment on above: Performed By: #### 2 [id number] #### [facility] [address] [place] [address] ALT No additional P-5'-P [Catalytic activity/Vol] 57 Int._Unit/L High 6-46 [facility] Comment on above: Performed By: #### 2 [id number] #### [facility] [address] [place] [address] Anion gap [Moles/Vol] 10 mmol/L Normal 6-16 [facility] Comment on above: Performed By: #### 2 [id number] #### [facility] [address] [place] [address] AST [Catalytic activity/Vol] 96 Int._Unit/L High 5-43 [facility] Comment on above: Performed By: #### 2 [id number] #### [facility] [address] [place] [address] Bilirubin [Mass/Vol] 5.3 mg/dL High 0.0-1.1 [facility] Comment on above: Performed By: #### 2 [id number] #### [facility] [address] [place] [address] Calcium [Mass/Vol] 9.0 mg/dL Normal 8.9-11.1 [facility] Comment on above: Performed By: #### 2 [id number] #### [facility] [address] [place] [address] Chloride [Moles/Vol] 102 mmol/L Normal 101-111 [facility] Comment on above: Performed By: #### 2 [id number] #### [facility] [address] [place] [address] CO2 [Moles/Vol] 25 mmol/L Normal 21-31 [facility] Comment on above: Performed By: #### 2 [id number] #### [facility] [address] [place] [address] Creatinine [Mass/Vol] 0.5 mg/dL Normal 0.5-1.3 [facility] Comment on above: Performed By: #### 2 [id number] #### [facility] [address] [place] [address] Globulin (S) [Mass/Vol] 3.9 g/dL Normal 1.4-4.0 [facility] Comment on above: Performed By: #### 2 [id number] #### [facility] [address] [place] [address] Glucose [Mass/Vol] 100 mg/dL Normal 55-199 [facility] Comment on above: Performed By: #### 2 [id number] #### [facility] [address] [place] [address] Potassium [Moles/Vol] 4.0 mmol/L Normal 3.5-5.3 [facility] Comment on above: Performed By: #### 2 114399 #### [facility] [address] [place] [address] Protein [Mass/Vol] 7.4 g/dL Normal 6.0-7.8 [facility] Comment on above: Performed By: #### 2 [id number] #### [facility] [address] [place] [address] Sodium [Moles/Vol] 133 mmol/L Low 135-145 [facility] Comment on above: Performed By: #### 2 [id number] #### [facility] [address] [place] [address] Urea nitrogen [Mass/Vol] 8 mg/dL Normal 5-21 [facility] Comment on above: Performed By: #### 2 [id number] #### [facility] [address] [place] [address] Urea nitrogen/Creatinine [Mass ratio] 16 No Units Normal 10-20 [facility] Comment on above: Performed By: #### 2 [id number] #### [facility] [address] [place] [address] COAGULATIONOrdered By: Maria Isabel Chavira on 05-24-2024 aPTT Coag (PPP) [Time] 42.5 s High 25.1 - 36.5 second(s) [facility] Auto Coag Comment on above: Interpretive Data: [...] the same coagulation reagent and instrumentation as [facility]. Currently there are no coagulation studies available worldwide for children to 14 days, and no normal ranges. Heparin therapeutic range (represented by Anti-Factor Xa activity of 0.2 - 0.4 U/mL) corresponds to PTT of 56.6 - 109.0 sec. INR Coag (PPP) [Relative time] 1.52 {INR} Invalid Interpretation Code [facility] Auto Coag Comment on above: Interpretive Data: I NR results are specifically intended to assess patients stabilized on long-term Anticoagulation therapy suggested INR s Less Intensive Anticoagulation 2.0 3.0 Conventional Range 3.0 4.5 PT Coag (PPP) [Time] 17.1 s High 9.4 - 1 2.5 second(s) [facility] Auto Coag Comment on above: Interpretive Data: [...] the same coagulation reagent and instrumentation as [facility]. Currently there are no coagulation studies available worldwide for children to 14 days, and no normal ranges. Ferritinon 05-24-2024 Ferritin [Mass/Vol] 401 ng/mL High 24-336 [facility] Comment on above: Performed By: #### 2 [id number] #### [facility] [address] [place] [address] HEMATOLOGYOrdered By: SYSTEM SYSTEM on 05-24-2024 Basophils/100 [...] 05-24-2024 Iron [Mass/Vol] 268 microgram/dL High 35-153 [facility] Comment on above: Performed By: #### 2 [id number] #### [facility] [address] [place] [address] PT & PTTon 05-24-2024 aPTT Coag (PPP) [Time] 42.5 second(s) High 25.1-36.5 [facility] Comment on above: Result Comment: Para [...] the same coagulation reagent and instrumentation as [facility]. Currently there are no coagulation studies available worldwide for children to 14 days, and no normal ranges. Heparin therapeutic range (represented by Anti-Factor Xa activity of 0.2 - 0.4 U/mL) corresponds to PTT of 56.6 - 109.0 sec. Performed By: #### 1 [id number] #### [facility] [address] [place] [address] INR Coag (PPP) [Relative time] 1.52 {INR} Invalid Interpretation Code [facility] Comment on above: Result Comment: INR results are specifically intended to assess patients stabilized on long-term Anticoagulation therapy suggested INR?s ?Less Intensive Anticoagulation? 2.0 ? 3.0 Conventional Range 3.0 ? 4.5 Performed By: #### 1 [id number] #### [facility] [address] [place] [address] PT Coag (PPP) [Time] 17.1 second(s) High 9.4-12.5 [facility] Comment on above: Result Comment: 15 [...] the same coagulation reagent and instrumentation as [facility]. Currently there are no coagulation studies available worldwide for children to 14 days, and no normal ranges. Performed By: #### 1 [id number] #### [facility] [address] [place] [address] TIBC Calculatedon 05-24-2024 Iron binding capacity [Mass/Vol] 265 microgram/dL Normal 250-400 [facility] Comment on above: Performed By: #### 1 [id number] #### [facility] [address] [place] [address] Transferrin [Mass/Vol] 189 mg/dL Low 200-370 [facility] Comment on above: Performed By: #### 1 [id number] #### [facility] [address] [place] [address] eGFRon 05-24-2024 eGFR 132 mL/min/1.73 m2 Normal >=59 [facility] Comment on above: Order Comment: Order added by Discern Expert. Performed By: #### 1 [id number] #### [facility] [address] [place] [address] Ambulatory Visit Summaryon 0 05-12-2024 Ambulatory Visit [...] 5 mg Tab) potassium chloride (Potassium Chloride (Drr-Vfuq-Kxc M20) 20 mEq oral tablet, extended release) [...] EDT With: Carrol MULTANI, Mario Xiong Where: [facility] [address] [facility] [address] [place] [address]- 2023 2:40 PM EST With: Kavon Lu DO Where: Oncology Thursday 3:00 PM EST With: Loreta Padilla Where: [facility] [address], [place] [address]- You Need to Complete the Following Alpha Fetoprotein Tumor Marker, Blood, Routine collect, 05/12/24, Order for future visit, Lab Collect, Alcoholic cirrhosis, Print Label By Order Location [id number], Blood, Routine collect, 05/12/24, Order for future [...] [place] (more content not included)... Normal [facility] Gastroenterology Office/Clin ic Noteon 05-12-2024 Gastroenterology Office/Clinic Note Gastroenterology Office/Clinic Note HPI Staff Patient is a(n) 38 year old male who presents today for a(n) 6 month follow-up. Was referred to [facility] 12/4023 for possible cholecystectomy d/t high risk. Denies blood thinners/GLP-1 agonists. Last visit 09/01/23 w/Dr. Evans: Assessment/Plan 1. Alcohol use disorder in remission (F10.91: Alcohol use, unspecified, in remission) Diagnosed few years ago, was actively drinking, he quit then He had a biopsy done at [facility] in January 2023, he had [...] due, last one was around January and [facility] report not available - Transplant [...] fL High (05/06/24) Chloride: 101 mmol/L (05/06/24) Traverse Absolute: 0.4 E9/L (05/06/24) CO2: 26 mmol/L (05/06/24) [place] Auto: 11 % (05/06/24) Creatinine: 0.5 mg/dL [...] 2.5 years Liver biopsy was done at [facility], gradient was 14 mmHg Liver biopsy report [...] remission (F10. (more content not included)... Normal [facility] Comment on above: Result Comment: Elec tronically Signed By: Carrol MULTANI, Mario Xiong\.br\Date and Time Signed: 05/12/24 16:02 EDT Haptoglobinon 05-08-2024 Haptoglobin [Mass/Vol] mg/dL Low 17-317 [facility] [facility] Comment on above: Result Comment: Perf ormed at: [facility] [address] [id number] [phone] PhD Poncho Prater Performed By: #### 2 [id number] #### [facility] [address] [place] [address] CHEMISTRYOrdered By: SYSTEM SYSTEM on 05-06-2024 Albumin [...] Reticulocytes/100 RBC (Bld) 2.4 % High 0.5-2.2 [facility] Comment on above: Performed By: #### 2 [id number] #### [facility] [address] [place] [address] Ambulatory Visit Summaryon 0 04-29-2024 Ambulatory Visit [...] 5 mg Tab) potassium chloride (Potassium Chloride (Ara-Icxm-Sfo M20) 20 mEq oral tablet, extended release) [...] EDT With: Carrol MULTANI, Mario Xiong Where: [facility] [address] [address]- Medications What How Much When Why Instructions New bifidobacterium-lactoba cillus (bifidobacterium-lactob acillus oral tablet) 1 Tablets By Mouth Every day Pickup at [facility] #[id number] New promethazine (promethazine 25 mg Tab) 1 Tablets By Mouth Every 6 hours as needed for for nausea/vomiting Pickup at [facility] #[id number] Changed furosemide (furosemide 20 mg Tab) 1 Tablets By Mouth Every day Cirrhosis Dependent edema Pickup at [facility] #[id number] Unchanged cholecalciferol (cholecalciferol 50,000 intl units oral [...] Misc Prescription (Misc DME Prescription) See instructions [place] [employer] Dressing 4 x 4 dressing Contact [...] or concerns Unchanged potassium chloride (Potassium Chloride (Pgd-Idug-Vcl M20) 20 mEq oral tablet, extended release) 1 Tablets By Mouth 2 times a day Contact prescribing physician if questions or concerns Unchanged spironolactone (spironolac (more content not included)... Normal [facility] Family Medicine Office/Clini c Noteon 04-29-2024 [...] Present Illness Patient was recently hospitalized at [facility] with right leg cellulitis and UTI, he was c/o urinary burning, discoloration and rapid decline. TODAY No symptoms of UTI noted. Patient remains a-febrile. RLE edema, pain no redness continues. No drainage noted. Patient states he was seen at [facility] and told he had a superficial [...] left - bruising noted after cath in [place], patient report he went to [place] to have Dr Bertrand said everything looked [...] 08:41 AM BP: 148/85 mmHg Patient Location: [facility] : 1985 Gender: Male Height: [...] Date: 12/11/19 (more content not included)... Normal [facility] Comment on above: Result Comment: Elec tronically Signed By: Loreta Padilla\.br\Date and Time Signed: 04/29/24 10:26 EDT POC BUN CREATon 04-26-2024 Creatinine [Mass/Vol] 0.5 mg/dL Low 0.7-1.2 [facility] Comment on above: Result Comment: METH OD TRACEABLE TO IDMS STANDARD Performed By: #### I BC #### [facility] ([id number]) [address] [place] [address] eGFR (CKD-EPI) NON-RACE DEPENDENT >90 Normal >59 [facility] Comment on above: Result Comment: Reported eGFR is based on the CKD-EPI 2020 equation that does not use a race coefficient. Performed By: #### I BC #### [facility] ([id number]) [address] [place] [address] Urea nitrogen [Mass/Vol] 9 mg/dL Normal 6-23 [facility] Comment on above: Performed By: #### I BC #### [facility] ([id number]) [address] [place] [address] [facility] 04-18-20 [facility] Case Information Case Priority: None Programs: -- Referral Source: Change Management Facilitator Referral Reason: Care coordination Case Type: Transition [...] 0.5 tab, Oral, q6hr, PRN Potassium Chloride (Gvk-Lmef-Bac M20) 20 mEq oral tablet, extended release, [...] noted. Patient states he was seen at [facility] and told he had a superficial [...] summary note. Created By: Nasrin Greene RN [facility] 04-05-20 [facility] Case Information Case Priority: None Programs: -- Referral Source: Change Management Facilitator Referral Reason: Care coordination Case Type: Transition [...] 0.5 tab, Oral, q6hr, PRN Potassium Chloride (Ogy-Doit-Plf M20) 20 mEq oral tablet, extended release, [...] note. Created By: Jc GREER, Nasrin Zuniga [facility] Heart and Vascular Office/[facility] Noteon 03-17-2024 Heart and Vascular Office/Clinic [...] 08:41 AM BP: 148/85 mmHg Patient Location: [facility] : 1985 Gender: Male Height: 67 in Age: 38 yrs Ethnicity: T Weight: 150 lb Reason For Study: Chest pain BSA: 1.8 m2 History: HTN,Murmur,Alcohol use Ordering Physician: Lexi^Nadia Referring Physician: Loreta Cummings Performed By: Chloe Angel, [facility] Interpretation Summary Stress echo test aborted [...] 08:15 AM BP: 148/85 mmHg Patient Location: [facility] HR: 65 : 1985 Gender: Male Height: 67 in Age: 38 yrs Ethnicity: WHT Weight: 150 lb Reason For Study: Chest pain BSA: 1.8 m2 History: HTN,Alcohol use Ordering Physician: John^Loreta^Nadia Referring Physician: Loreta Cummings Performed By: Chloe Angel [facility] Interpretation Summary No comparison study is [...] Abnormal stress test Alcohol use disorder in [facility] (more content not included)... Normal [facility] Comment on above: Result Comment: Elec tronically Signed By: Shalonda MULTANI, Marc Love\.chidi\Date and Time Signed: 03/17/24 14:46 EDT Lab Miscellaneous-LCon 03-09 Lab Miscellaneous COMMENT Invalid Interpretation Code [facility] Comment on above: Result Comment: Test Ordered: [id number] Hered.Hemochromatosis, DNA Hereditary Hemochromatosis Comment TG Results: c.845G>A (p.Hmr456Tkj) - Not Detected c.187C>G (p.Hrx84Akz) - Not Detected c.193A>T (p.Cvv75Vsw) - Detected, heterozygous Not associated with increased [...] for patients who are homozygous for c.845G>A (p.Nbs007Rcj) and have yet to experience clinical symptoms. Comments: The most common HFE variants associated with hereditary hemochromatosis are c.845G>A (p.Uio116Bah), c.187C>G (p.Tud27Vxa), c.193A>T (p.Vlx40Nnv). While patients homozygous for c.845G>A (p.Dht349Muf) are the most likely to present clinical symptoms, less than 10% develop clinically significant iron overload with tissue and organ damage. Genetic counseling is recommended to discuss the potential clinical implications of positive results, as well as recommendations for testing family members. Genetic Coordinators are available for health care providers to discuss results at [phone]). Test Details: Three variants analyzed: c.845G>A (p.Nrr785Rwv), commonly referred to as C282Y c.187C>G (p.Nrr81Ybu), commonly referred to as H63D c.193A>T (p.Los59Lzl), commonly referred to as S65C Methods/Limitations: DNA [...] developed and its performance characteristics determined by [facility]. It has not been cleared or approved by the Food and Drug Administration. References: Jh BR, Xavier PC, Diane KV, Ilya LW, Allan ; [employer]. Diagnosis and management of hemochromatosis: 2011 practice guideline by the [employer]. Hepatology. 2011 Mar;54(1):328-43. doi: 10.1002/hep.79473. PMID: 69929025; PMCID: PCD7105510. Jasson G, Blake P, Scarlet DW, Kalyn H, Elliott O, Humberto S, Myles I, Nehemias M, Sanjay S. [facility] best practice guidelines for the molecular genetic diagnosis of hereditary hemochromatosis (HH). Eur J Hum Sisi. 2016 Dec;24(4):479-95. doi: 10.1038/ejhg.2015.128. Epub 2014Mar 14. PMID: 94208417; PMCID: YNX5775893. Reviewed by: Comment TG Technical Component performed at [facility] RTP Professional Component performed by: Selena Funes, Ph.D., [facility] Director, Molecular Genetics [address] [place] [address] Performed at: [address] [id number] [id number] PhD Poncho Prater Performed By: #### 1 [id number] #### [facility] [address] [place] [address] Copper Lvlon 03-04-2024 Copper [Mass/Vol] 80 microgram/dL Invalid Interpretation Code 69-132 [facility] Comment on above: Result Comment: This test was developed and its performance characteristics determined by [facility]. It has not been cleared or approved by the Food and Drug Administration. Detection Limit = 5 Performed at: [address] [id number] MD Héctor Carney Performed By: #### 1 [id number] #### [facility] [address] [place] [address] Haptoglobinon 03-04-2024 Haptoglobin [Mass/Vol] mg/dL Low 17-317 [facility] Comment on above: Result Comment: Perf ormed at: [facility] [place] [id number] [place], [place] [id number] [id number] PhD Poncho Prater Performed By: #### 2 [id number] #### [facility] [address] [place] [address] BLOOD BANKOrdered By: Maria Isabel bain on 03-02-2024 AYLIN IgG/C3d Tube Negative (03/02/24 1:51 PM) Normal [facility] BB Subsection Bili Tot/Diron 03-02-2024 Bilirubin [Mass/Vol] 5.0 mg/dL High 0.0-1.1 [facility] Comment on above: Performed By: #### 2 [id number] #### [facility] [address] [place] [address] Bilirubin.direct [Mass/Vol] 1.2 mg/dL High 0.0-0.4 [facility] Comment on above: Performed By: #### 2 [id number] #### [facility] [address] [place] [address] Bilirubin.indirect [Mass or moles/Vol] 3.8 mg/dL High 0.1-0.9 [facility] Comment on above: Performed By: #### 2 470645 #### [facility] [address] [place] [address] CBC w/ Auto Diffon 4 Basophils/100 WBC (Bld) 0.6 % Normal 0.0-2.0 [facility] Comment on above: Performed By: #### 2 [id number] #### [facility] [address] [place] [address] Basophils/Leukocytes Auto (Bld) [Pure # fraction] 0.0 E9/L Normal 0.0-0.2 [facility] Comment on above: Performed By: #### 2 236671 #### [facility] [address] [place] [address] Eosinophils (Bld) [#/Vol] 0.1 E9/L Normal 0.0-0.5 [facility] Comment on above: Performed By: #### 2 161007 #### [facility] [address] [place] [address] Eosinophils/100 WBC (Bld) 3.0 % Normal 0.0-8.0 [facility] Comment on above: Performed By: #### 2 417294 #### [facility] [address] [place] [address] Erythrocyte distribution width (RBC) [Ratio] 15.6 % High 10.9-14.2 [facility] Comment on above: Performed By: #### 2 405230 #### [facility] [address] [place] [address] Hematocrit (Bld) [Volume fraction] 33.0 % Low 37.7-49.0 [facility] Comment on above: Performed By: #### 2 [id number] #### [facility] [address] [place] [address] Hemoglobin (Bld) [Mass/Vol] 11.7 g/dL Low 13.5-17.5 [facility] Comment on above: Performed By: #### 2 [id number] #### [facility] [address] [place] [address] Lymphocytes (Bld) [#/Vol] 1.1 E9/L Normal 1.0-4.0 [facility] Comment on above: Performed By: #### 2 [id number] #### [facility] [address] [place] [address] Lymphocytes/100 WBC (Bld) 24.5 % Normal 14.0-50.0 [facility] Comment on above: Performed By: #### 2 550772 #### [facility] [address] [place] [address] MCH (RBC) [Entitic mass] 37.3 pg High 27.0-34.0 [facility] Comment on above: Performed By: #### 2 540247 #### [facility] [address] [place] [address] MCHC (RBC) [Mass/Vol] 35.5 g/dL Normal 31.4-36.0 [facility] Comment on above: Performed By: #### 2 [id number] #### [facility] [address] [place] [address] MCV (RBC) [Entitic vol] 105.0 fL High 80.0-100.0 [facility] Comment on above: Performed By: #### 2 [id number] #### [facility] [address] [place] [address] Monocytes (Bld) [#/Vol] 0.4 E9/L Normal 0.2-1.0 [facility] Comment on above: Performed By: #### 2 824584 #### [facility] [address] [place] [address] Neutrophils (Bld) [#/Vol] 2.7 E9/L Normal 2.0-7.5 [facility] Comment on above: Performed By: #### 2 648318 #### [facility] [address] [place] [address] Neutrophils/100 WBC (Bld) 62.6 % Normal 36.0-75.0 [facility] Comment on above: Performed By: #### 2 674097 #### [facility] [address] [place] [address] Platelet 85.0 E9/L Low 150.0-500.0 [facility] Comment on above: Performed By: #### 2 535354 #### [facility] [address] [place] [address] Platelet mean volume (Bld) [Entitic vol] 9.2 fL Normal 6.4-10.8 [facility] Comment on above: Performed By: #### 2 027834 #### [facility] [address] [place] [address] RBC (Bld) [#/Vol] 3.2 E12/L Low 4.3-5.9 [facility] Comment on above: Performed By: #### 2 209853 #### [facility] [address] [place] [address] WBC corrected for nucl RBC Auto (Bld) [#/Vol] 4.4 E9/L Normal 4.0-11.0 [facility] Comment on above: Performed By: #### 2 [id number] #### [facility] [address] [place] [address] CHEMISTRYOrdered By: SYSTEM SYSTEM on 03-02-2024 Bilirubin [...] 5.60 mcIU/mL Remisol Chem Consenton 03-02-2024 Consent [id number] [facility] [id number]#1.00T IFF Normal [facility] Consent for Treatmenton 02-06 Consent for Treatment [id number]#1.00T IFF Normal [facility] AYLIN IgG/C3d.on 03-02-2024 AYLIN IgG/C3d Tube Negative Normal [facility] Comment on above: Performed By: #### 8 [id number] #### [facility] [address] [place] [address] Folateon 03-02-2024 Folate [Mass/Vol] 20.5 ng/mL Normal >=6.7 [facility] Comment on above: Performed By: #### 2 [id number] #### [facility] [address] [place] [address] Free T4on 03-02-2024 Free T4 [Mass/Vol] 0.64 ng/dL Normal 0.58-1.64 [facility] Comment on above: Performed By: #### 2 [id number] #### [facility] [address] [place] [address] HEMATOLOGYOrdered By: SYSTEM SYSTEM on 03-02-2024 Basophils/100 [...] LDHon 03-02-2024 LDH 238 Int._Unit/L High 93-218 [facility] Comment on above: Performed By: #### 2 [id number] #### [facility] [address] [place] [address] Lab Miscellaneous-LCon 03-02 Test Code 124445 Invalid Interpretation Code [facility] Comment on above: Performed By: #### 1 [id number] #### [facility] [address] [place] [address] Test Name HFE gene Invalid Interpretation Code [facility] Comment on above: Performed By: #### 1 [id number] #### [facility] [address] [place] [address] Reference Laboratory Testing Ordered By: Karina Vela on 03-02-2024 Test Code 792803 1 Invalid Interpretation Code [facility] Test Name HFE gene Invalid Interpretation Code [facility] Retic Counton 03-02-2024 Reticulocytes/100 RBC (Bld) 2.7 % High 0.5-2.2 [facility] Comment on above: Performed By: #### 2 [id number] #### [facility] [address] [place] [address] TSHon 03-02-2024 TSH Qn 1.24 m[IU]/L Normal 0.34-5.60 [facility] Comment on above: Performed By: #### 2 [id number] #### [facility] [address] [place] [address] Coding Summary.on 03-01-2024 Coding Summary. DEFYPvry26DJq4bAi+PG hlY WQ+EV8GYQKeF51grNJsbH8n I2TOOYgDQuiaLNMXZLaQPeV vjnCzUA5urGOfBQVt IC8+QK6oTIRjEawkhUUsg7G 1qCB4O00ssn3mLBoijEL0LP QzIhNqevrbv8nfiBn6OHpnO mluOyBt EYEvyT25BOD9fT13Tt71nER cuTYfs0nojSg0WoBiCITwDB H2pNxtLLuzl2JqXQWuU46bq ZYah1D3 WZMayDflaQFmItElrEL9kF9 nXGgvuinog2zyebyjHuo8um 99gBMce4K5sKB5W3CwddA7Y GJvbGQg WudjnGHMvV6uuepyg6roebm zPvEhEBQcHZk4GEy0BBDvcY fwHgUqWD83WZG0LMJtkyIuU 2FsLWFs bEtzGvZ5m8F5Od4FV7LDRzs qA3OZYYKTYBvwbBH+PC90cj 87I6UcXyfeCia4ELNeMIY4e CU9wB0a UYXtNMvtt8U5vDD8R1GwgyQ edy7ok7ayWNLeZWwzK94clX Sbe3T6GPFybOD8UWRafKjpS iBzaG93 Oyc+XYTeuYghp7VjLskkl4d wd1reiQc3BkduFGUhfcAumV ifYAT5i2ApQf0uWVXruSL0r FT6yP3k GcEjWfS3VJdbH414GlTfzFL iTnxuZ57vW6YfiKT+PHRyPj n4OENtpWrzBU5uV3WaIYVaq mctbGVm qEwqMB6hYDYmpebcIWIgoV6 nPMVeE8y5JxWkVoC8KVoqB5 UqOKKjwbrjVw62aT1fHmZiE jJ1RQed W5McpuV2JOBujZIaTTmpZTF 8L64dj7R9KGHkKCKaTUC1vL B9iZ0mlSdxvdwgvWCdbYbrj mVydGlj YQxeJOxsP393JMGhaGehPnZ vZGluZyBEYXRlOiAgMDYvMj UvMjAyNDwvdGQ+NQHnQRU4x WxlPSAn aTMpXZtrMp8dnWngoGzaOD5 hRKWvgqkqRZDnhD0pZDXmsA TrmVzhAV0cHUJhonkdt883S iAxMHB0 GAPngBRbW7HtcR8fXrUdHCV kSJLfP6JkoVSmWFetB795ZZ omSeJ7SAAlrtIoT7TiCSUoh WduOiB0 l5C5Sk5My0WmlnleD5AkrBK rWuJaRbhbRUd7G0MuHibkcO I+DN00FGNwMP76JWo6SYD8h WxlPSdi JTWvT4IbuS5pDdBwLMXhELC kOyc+PHRhYmxlIHdpZHRoPS chPIBwSrHykXqjHT0qZt3tA GVyLWNv yMaehKOnHsUfr5ghBATqOTw dVD2piWygS1FfqLB2SSHrs9 x9Or81K82oZ4BzxGP+PGNvb AJ0tRH1 uO3oTaHuAeI0VHxqS498AeH qkEQrFmfts4vgf4oxqVr9Oe X3XELxenDetGmqAOU2v7NvM i71O83m IHdpZHRoPSIxNSUiIHZhbGl oge8hnR2iUi7+FTYkbVP0aW U1dO0kOcXmQbN6WUfdM161Q nRvcCIv Zpvwp2xzn5apkUg2QhGzFDW cimGzqUzgZEU2b7PfIy19J9 MvtCmhi4GlOgy1ms38eWRbr 2Z9bCT1 T2SlLLBtxqdgyPRobVfvAS4 bDAMkjhxiIZCreY7iLJBkY4 c3PfPbGyG1ZRprL0XcgbO2G GJvbGQg VSWafTVXuE1kzuyin2hqixa jFqMyRBPtIAf4STd1EIVlkT etDwXjFAO8UgK6KMZ4hOKua J6cmEly ikqdeT8gEmk+UEA6oILbbCU ZJV4rSdjnaEN+VEPmGSO8uZ scJOxpEGAuiW0pCLIxT1h5Q iAwLjA1 OGsfA6WidzV7BVVghSVpIUK apHMApX2uyqlxw0uigkskZn CsHHGpZLp3DAo6CVVtmKulI iBsZWZ0 DwJ7HDW3vKOfoD2bsQidsuj slJ4sEaz+EcybdPbeEYC3NR h5F0AhTgc6TNRplWmqFL1gf GFkZGlu Yo1fhZnpkYlxAD0cHXHahwr vw679FgKbb7tjQWWbgOJdIL jgVQP9K86cw1Z0IBWmPCGfR GI2hQC4 iJ5ocVlvjjgkxWQghDdxnkF qkKemWDesZIdpF051PJCtbH hoUqUxVHl7C1AvKob8JHYlx NcyCT1c nEFvOComNr6fwJjkxVolLB1 bAJZoeqbtg561FuRqy1ljYL BdvNUqIZodCPO5S98ct8K7F CMwMDAw ZOB1lHO2yU7kpVdcbrrrvDM mdDsgdmVydGljYWwtYWxpZ2 81DHNiqSjzQlGkbLz7H5SiK gz0NZIm wOfhCF8ccNCwDMkqXa8xgQd eoYgtRW4cRLYqyauhp814Xh Ybq9zfMPXhyNOvCEbnFGL2K 25oq2E9 IFRcQHZzHYZ4rRH3yN4dkLw nbjogbGVmdDsgdmVydGljYW knPTstC009BRFslKmeGeSut GllbnQg DEgfZKp8W5LzWpuadNZ+PC9 4CSMdJB63nCGonVBfx8thjE k6EvQyWELjDIK0hOzvFLkna 3JkZXIt Y82oqZLkg3G0UIFnpXapeFC hBgGtdZT9dN6uUJjpsvkyt6 eezaebJdnsd4jqkx06oG77U 29sIHdp ZHRoPSIzMCUiIHZhbGlnbj0 kwF9gAi1+AKVsmYC1xXQ5gW 9vCQIpErY0YTroK478ZyQwb CIvPjxj u4zlk2yozBu7IaE1UUHtcpH rvChrYGR0a3KrDk55B81sZX dpZHRoPSIyMCUiIHZhbGlnb l1wzI7o Ii8+RCKhaAX1wUK8vW0yKxN oTjD6RRfqK538ViGhxCGdLk zgP21xT9QbkDW+NEVcLbq2W CBzdHls EM6vqDMtHHwhVi8eQAO9HyO cDyAxKBknJ9ZxMJKlcqiasa criBS8BUIqKCSnsK79Jp9sg DogMTBw zBNOoM0hmenxf1gkidmnKyR uOQWqSTz4YJr5MMHksFfpIp XlKNZ8NxP2SHA6hDPakX6hm Glnbjog rP9jB4IcMPDykllkYf81vY1 qIjWyOpD3PYjrCmq+SEVZTU VSTHFZVY1DMPh5C5AcNut8R CBzdHls PO0ktMAkRVusCf7brXipsBm eLS9gLNElsawmOQJraU4dPQ ZtqSClhCrfEW1uLTRcldalc 250OiAx LPY6SPRvlOVuS5KoyZ3vTwC wBNNbUPGlV8DtwIZaWZgxJ5 68BAglOeE6MMQxtlDiA5YjU WFsaWdu MbP6y4K3Aa6uSU4rUh5qRNu 0QB22IN73qJMzg2F8oXT2Z8 TmHKOkjvjxvhhtjVY9EFLwY DUwaW47 aPBqAOvtTs6bk8R9v935EGQ qIIIcbU67Sc1dsOjsPTOkvT TFyL3xvooub4zvmwrwYoJkW DAwMDt0 YJi2CBAfdWzkRvCzOOJ9YlU 4DJL2oIEcuH2ubIrvrrlpfZ 9wOyc+StueESIwcaI5Y9IlA fl6IDHf dVocUB8ahJYzKKulCz0kfEx peYkfFC4iFIJwihwvMRAgrV 2xHWXtsMGaaFqkDZ5vNFSpd xepa334 GnZyNRT2VEIapFJoV0MteG1 sPyReXCWwXPMhS7UztASaFG npG353OThgIaX8DHNcnvSlN 2FsLWFs kGjdIhC9o5O7Mf9IXRcxDS7 8EF01kZPrs8Z5sVB1F0WuIL EttcematdanLL3XVHyTPLrt G60qMIc KGhlUc0lu3E4n714JDLjZHJ maL64Na1jxPdjLYJtfAZZpE 5jzkzqr6erqqakCkDgWEMyF Og8RXn9 PRQudCzuVmMxHWK1NlG2YQC 1qPRacZ6dxVjvshrzvV4vVg c+L9J9yUM0qCHezRturVM+P Y58kv31 E0XwMxkjYkg9QUIuEUQ0fOA 6bZ5uEPAgKDxuu2U4eUF4C8 CabfCsqk8zt9hiKNWeTJqyI 29sbGFw n6P9DEHxkAV8LICwvLwiCsG vjA74Wsz+VRGckVoly3QsCl pdo6xsj5julRg9VpWhLSPcv mFsaWdu LCH0s1OzEt73M64oFHqpOXZ aHSSaPASkZQPmfZyryg6cvA 9wIi8+KBWvrFZ1gNL4mQ1cG jAlIiB2 BErnY940FcDqtFUgRzier0i py1lesEz5FqReAXCpdjAkzQ oiPJU0w4VaMz31V5CtoIvyd 7GiTza0 ds24pOEko5Y9sZC0W7MmOBV gjydvuVAgcYjxVL7rGLRjgy meQSYjvU8fDDTgB8l1DmZnO tA1TGpp Z8MnpvA8FQAjgBNdMBTjrJT AsB4ixojbl5nbojczKeCySH AsVXb5NLb7QDFhlLriBfLqV AT5YmP3 CWC4fCVfvC7xeWzhsorveA9 wOyc+YMl1s5eylUOeIO6wbB Q9UG97IC83nLYjc6N3bPU6Q 3BhZGRp ogeeqgjshVW1DDBuIFStqL4 2Vi4xdKcqPx6gTUNqPCH3EG AtxWRuN1HqbQ8mJbRxSZHoX XYfW5Gw iNTjCWamX454YAqsGuW4UBM vojWfV3JwGLFrcLufUyQ3d0 U3Gu1NTW63BX40OP63hLJdd 0Q6dRZ6 W1PuBWRdrgduvirsiZR4ULN xUBJjxL69Ww5tzDffJu4zFS YqMVB1DLRzgDWeZ3SzeU9bS iAjMDAw KBQhL1CbaCDxFUstT558EFw gOkY8ZHTygrOyA7XoWAAjhU pgLmH7g8J2Ka9ZIn86TY02N O32eMSx b5J8mXR2R7DoSKQxpfwnhze csLY6HWWnDLYzaS89Vs7smN acQg1hDKSsTLS8EQUpiSHzN 1VtnB3w GkVwUQXrGHEdU1WusNHjJBp bN025VNiaOdM2AYRoexPzL3 ZkMIPybSxkFfL8i7N0Bj9BU Xllcjo8 R0FsMbipcOS+DI95NENyHY1 2gTEtfAZit7iqdNe6NuDjGO SlEIN7hUtuSXdpz1IvTVDwO 29sbGFw n5S1BAMoqCmts (more content not included)... Normal [facility] Coding Summary.on 02-29-2024 Coding Summary. VVZKUmtn11UYz7mUu+PG hlY WQ+ZR9OUMZiM36fdBQdxC2k Z2GYSPkUYtnaOJWHIRpPMiP priDsEU9ttZFcNVIe IC8+LP6bIXSfAasbaPZkb8Q 9vZK7D73rxu2bLLnnzLH0HU YbAdEsutmwv9rbtQp1TWqyE mluOyBt FQWfcQ87KTC8vF23Zj69cND vgIVow3jxaCh6OuHrRGRqYD T6nGnjMWhrf0HwKPLoY05yf SVrp2T9 HFAzcPesfQHiMyDguTU0fY4 mGIulevnmo1agqemoTby6ms 15sYJdn9M6wCS3B7EomuI1R GJvbGQg ZyrnqFSWiH0xllmsq8zgksx kJtTbFJNjKZk5OIt0JGDcyK gpBjSoTF26VRJ0GAFmbuLxP 2FsLWFs dWfoKvG9h0U7Gj6RE0UQOqz vW4WDIDRZGRzlkFO+PC90cj 53A3NsSxgeYmr6EPYcCYT1n BO5yC9a XNFeACmxl4C1dCJ2H3BdhzW dwn4ce5duUBJsQGyfN09thB Ppx5J3IAHmtXO9HPOzgUadS iBzaG93 Oyc+WMEfxPexb8TqKgmhw8a yo1nkxNv9BeyzONOpveZnvL llMMJ3l4OnCe4mVNWjwWA0o HG3jQ1n WvYxFnI4LTqhU732WvLvfZP tGblgE47nV1NudRG+PHRyPj w0ZVZxbZzrKQ2zH4BuIJFum mctbGVm rDruDU0bYKSrnxwoYQEmhC0 uZXJdT7z8XhYnMjP5GHneC4 GzEAFbmynvCg78aE9iHiVvB sJ8NDvy Z4NwweI7BXOnyFFxOQdwXHN 3S54rf5D5AZWdIIZrZHT5gQ S9kG5dmVclgfdgmXUuaZzss mVydGlj OHrpVEocU512WKDdkXurTzG vZGluZyBEYXRlOiAgMDYvMj QvMjAyNDwvdGQ+IAYmGAM3z WxlPSAn yBNvHDldBs9rbKwvrBjaVU7 aLQQdzgxzFUZpvI0xCDCjkZ BglVhiSG7cQLQdarsyo122Z iAxMHB0 YBWkhLWeX7IusE2kMkOgIBF tOQKdR8NnaYKhAUuqL808DW yfXmB6LFPclqQyH9OjUPFsh WduOiB0 j7J5Yp4Pi2MffmsuJ4VloYK sLsRqSbuyZDg0Q7QtLcdimI I+TD62LRStPQ03DTq8HIB6v WxlPSdi FUZwP6UslN7gZnYdMXKoLMP kOyc+PHRhYmxlIHdpZHRoPS ujNRRgJnAbhNcoXB3yNp4xE GVyLWNv kEpjjTDmViIvc5wjABBvTQi rRF2vmMpxV0BilZT0GXPmx7 z2Wo33Q07qD8MxhZN+PGNvb EB9sHX5 cJ0lTfRxOpP0UFstB505NyG gqWWrCbvvy2sep4mafEd4Ia B4YLFqxbFdgSsqDRK9z8LmZ r70M06b IHdpZHRoPSIxNSUiIHZhbGl hqq8gfF7iLz4+GALmoJI4sT B0lU3tBuNwZeK8WQhmV515N nRvcCIv Ojrzk9wzr9wfdNz8SjRuBXC lujUdrJxyRTR3u7UvJp76W4 NxfCclz5SmPug3ep44sDSqx 2D8xEX5 O1PlZYUgcopcbJMkvXjoWI9 sBOCwjpfiTFUsuS0zJLAyC4 q0FqZvDlB2JWtcA9EpvvK4X GJvbGQg NVLyqISNgO7rprszb9jopiv jDtHiMIZfHXb5CKw5NTSieF qnSsXzQFA5DyF0COM0qUHkp K0xyXlz ekuxyI3zOwn+NMC4fWSkxUZ VYH1fHvuuqTA+KHDbHPY6eP gcYVyaQACiiI9lYEMmY6d2P iAwLjA1 QCvqD1SrnjY5GMMhkZEwALI ayECXlC2jagxta6ucosheSg YpAAOtRXj9LKx8MWDglEkjO iBsZWZ0 VrZ6EZB9qGMckY9cbMyqtwn weE9fLnl+WxunsPlgTLW2DT v6X5UrOkl2ENZzhXrsZS9rw GFkZGlu It8mfDnahHjsWM3kPEMtyiw pd413LyJzk3auHNEqtHTrHP xpEUR3C79io6P7XPPsCPRrH HH6sQG6 rY4xpOetqrntzSGooDrdjiY ykLluKMhlDFmtX390MNYfjV xbHyEzPBg2M3CwZtv4SBLzc ThtZO2d eKGdLWvoXx1vzGptdRwqKF4 jUAAjnvouq942CqOwj9rfYZ SbkXZwDPgzHBA2H28nq5X3M CMwMDAw STR0hBH1bV4uhQvwgvicdZU mdDsgdmVydGljYWwtYWxpZ2 68FQBhnNgwUnGxrCu7J4AuK wl1JDZw uUqyVZ2xxXNsBJksTt0epXk ryLsmAS5gKMEgrgicl918Di Hah2ybFWGaqSObCAnnZEI5G 80ck3L9 BNTtYIHgRKB6gVF4hO6naMf nbjogbGVmdDsgdmVydGljYW nbBFwdK813KMUjxFfyDhAky GllbnQg EJgpBSv3B4JcWaphzRZ+PC9 3BZHrLQ36jFSjfIFib4nbsZ s3SpTiROUjSIO5wXbrDEbuf 3JkZXIt B61ykJLbl4M8WKIhlGszgGI cPmKdtQI3nC3xVKduqxvnn0 gczauvNpdtt5sgvb80mT61Z 29sIHdp ZHRoPSIzMCUiIHZhbGlnbj0 zrA7aHl1+RCCzvWO1cTR7zL 1ePLVoLyQ6DMclT590DsGfl CIvPjxj e7ycm0gphYr3ZcR2BODfekW osXxbZSP3n6LcIs36R61oHE dpZHRoPSIyMCUiIHZhbGlnb y7ciP3m Ii8+PPIepVB0yRK9lG3kIaX cFeV6LPdkH152SmSuvAMaEt rqT64cF2BlsFS+FMTnQju0I CBzdHls SI8ddBMlAJbxEv5pVFL5TmN yStUcXCetA7HoYJCdccdyyp nnvHG9WBXzDWKveJ03Gv4ut DogMTBw tAEDwY6tncpes2hhttslMaM fNSVcDUs2GHl3MWQchJmgTh TrRQR8FjP4OLZ3pIItnM6cx Glnbjog iU8iZ3JvQTYfdlspNq87bF4 aSuNxSlC2RDbyAxa+SEVZTU WXQIPPEN1WSJc0K2QkYdy6P CBzdHls NN7ifJDcZKuoUy3haVmxeFw nAQ9xRPWpkrgkNKMytC8pRD PamHGvlSreSQ6pMXSukalgy 250OiAx DDM5YTQulUVaP2MmlM5aFuH vVYSnLQKjF6BdjYEoCKygQ8 91TZscWrN0JGDabiFsX6VdA WFsaWdu PvZ6l7B4Ja1pPY0sXe4kKDe 6SM28ID58sQXak2I5nJQ6K4 TbWBZwpvalekunbDX2EBMcM DUwaW47 zJKtVGrsRz5cu5U5e646FQB bWOVpxK17Ot9oaFwnQFZrpF XIcE5lgsfrb2szoaevIhMaO DAwMDt0 LKp5RYHfvTuxSmJgHTB2KeD 1CEX2jXDrpO8xzKxldtsgvR 9wOyc+MvhkPODwauI5E8UuM xm4KFFu mRwsYK1gnCYdBJdqPr7qsZp twNvpBX0eOKGkhymmLPZmuY 1xIJIqtDAvaHekOD7eJNZgn izva202 SjGcYSY4CZNxpDCyS7VahW5 hOtWoEJLqOBGgY4VopSLxKY ybZ401LTiuPnU0HLSzvkYzM 2FsLWFs jRuuHpR4j5C0Ft7OLStqEY1 9AZ81yGYvg5E4mEL5F8AmHR JwjxxrusppqUG3ZDGuDEGar S81kRAg HXvzPm1cz7V5t272ALIcJFM rtM76Dq3pfIliLOFxmABNuX 0dqhcdn4iwydqwMhQtHAPfF Yj7XLq8 OAVokAkjAkAdIFS7LsY4PDJ 1uYBdiY9ttLcydjxzbQ2nQa c+P2M7kQX4iHMkbIcitZI+P F58hh16 S7XuMtulGey7LFHhVFE2oKQ 3hY9tEMAiZTlun3J1wWA8S3 AdyxTbkp9ba3erGKQnGHqwG 29sbGFw z4F8MMQohUL9TWGbqQohAtU mwR45Hiu+KIFztAwje5EfNg ees3oxt7cyvZu1YlBqNMYin mFsaWdu DNI5n9XmPj69W53mSWqnTOA eMQUbBIGlIRTqqSihxz6oqW 9wIi8+TTNgcFH6sBX4tV8sC jAlIiB2 RWmvF006FfNhrCZvHlhmf8r yr7jumDg1GfDhTHTqpdTogF iwXCS2r0QjRn53N1JxrBlos 6HnDyq9 ms98jJIab7F2lQK6D7ZtRLM zsacczEGwpZgbCN8xLUFfcs khBFJllF0rAYTlS3v7NaHbM wD3RXbu D1HoqqD0TWYocPCpMHHewPZ CfJ7lvbvcb0hpvkxdCdXwUE NvLQy1MBt0ULUimKebUlMeY CO8HuX3 LEH8eUFoaB7ucOgbvmujqZ0 wOyc+FFa6p5smkNTpKO2tpU S9RH58WG97nADfg3H3yEE8W 3BhZGRp rwhzbriadQO6CPOxCIIkzD8 6Ab6sxUjfGe2hPXNiFIX3IF MfdBDaD4IzzL5zZkVqSDJnJ NLgE1Rt iRPdZFuvP927QZezGdM6LEP lkdOsC2CoRSMpaXaaBmH8x6 G7Ww2QHZ36SV25ZM43gSQzl 4U2vGU5 U0AhHWFvsrtufikmpRZ1MZT kYLMojB85Hc2ptRqtDl8lZC PtTAU1ARCmxXHgH6ZuqH9sM iAjMDAw OOQuH4ZbxQObNGhlH539XFl uJhB2IJBwskYvE9RwKHAqnY fyUeS1y6R3Ay1XPc32XA32V Z37mIAl b1E8bOF5H4LvQWDirvpulas vrWA3RMCoYGVarE49Ub0bxF waTe8sCKHmNCS7RWOjqLSdB 7SveI2l KeBdFQNyDBZzY1NihOQvXDx bO403CFdsMtD0TVJogpEdW2 GdJEUkvOlrIvX8z8U2Hz0HC Xllcjo8 Q3OoCerrxAE+AQ18OBWmGZ3 4wXAmcIFec1wjuVj5McHwSD QlRTL8sUnwGCnkb9IiWXZqG 29sbGFw w9Y1QFZjxOtyj (more content not included)... Normal [facility] Consent for Treatmenton 02-06 Consent for Treatment [id number]#1.00T IFF Normal [facility] Laboratory Outside Office Co pyon 02-25-2024 Laboratory Outside Office Copy [id number]#1.00 TIFF Normal [facility] Outside Records Officeon Outside Records Office [id number]#1.00 TIFF Normal [facility] CBC w/ Auto Diffon 4 Basophils/100 WBC (Bld) 0.6 % Normal 0.0-2.0 [facility] Comment on above: Performed By: #### 2 162185 #### [facility] Laboratory [address] [place] [address] Basophils/Leukocytes Auto (Bld) [Pure # fraction] 0.0 E9/L Normal 0.0-0.2 [facility] Comment on above: Performed By: #### 2 447157 #### [facility] Laboratory [address] [place] [address] Eosinophils (Bld) [#/Vol] 0.1 E9/L Normal 0.0-0.5 [facility] Comment on above: Performed By: #### 2 695734 #### [facility] [address] [place] [address] Eosinophils/100 WBC (Bld) 3.8 % Normal 0.0-8.0 [facility] Comment on above: Performed By: #### 2 412749 #### [facility] [address] [place] [address] Erythrocyte distribution width (RBC) [Ratio] 15.5 % High 10.9-14.2 [facility] Comment on above: Performed By: #### 2 495488 #### [facility] [address] [place] [address] Hematocrit (Bld) [Volume fraction] 33.1 % Low 37.7-49.0 [facility] Comment on above: Performed By: #### 2 719188 #### [facility] [address] [place] [address] Hemoglobin (Bld) [Mass/Vol] 11.5 g/dL Low 13.5-17.5 [facility] Comment on above: Performed By: #### 2 607922 #### [facility] [address] [place] [address] Lymphocytes (Bld) [#/Vol] 0.8 E9/L Low 1.0-4.0 [facility] Comment on above: Performed By: #### 2 047607 #### [facility] [address] [place] [address] Lymphocytes/100 WBC (Bld) 21.1 % Normal 14.0-50.0 [facility] Comment on above: Performed By: #### 2 788015 #### [facility] [address] [place] [address] MCH (RBC) [Entitic mass] 37.1 pg High 27.0-34.0 [facility] Comment on above: Performed By: #### 2 324110 #### [facility] [address] [place] [address] MCHC (RBC) [Mass/Vol] 34.7 g/dL Normal 31.4-36.0 [facility] Comment on above: Performed By: #### 2 534198 #### [facility] [address] [place] [address] MCV (RBC) [Entitic vol] 106.8 fL High 80.0-100.0 [facility] Comment on above: Performed By: #### 2 625536 #### [facility] [address] [place] [address] Monocytes (Bld) [#/Vol] 0.4 E9/L Normal 0.2-1.0 [facility] Comment on above: Performed By: #### 2 991730 #### [facility] [address] [place] [address] Neutrophils (Bld) [#/Vol] 2.4 E9/L Normal 2.0-7.5 [facility] Comment on above: Performed By: #### 2 722149 #### [facility] [address] [place] [address] Neutrophils/100 WBC (Bld) 65.0 % Normal 36.0-75.0 [facility] Comment on above: Performed By: #### 2 801304 #### [facility] [address] [place] [address] Platelet 73.0 E9/L Low 150.0-500.0 [facility] Comment on above: Result Comment: Tierney pheral smear review performed. Performed By: #### 2 378697 #### [facility] [address] [place] [address] Platelet mean volume (Bld) [Entitic vol] 8.8 fL Normal 6.4-10.8 [facility] Comment on above: Performed By: #### 2 311495 #### [facility] [address] [place] [address] RBC (Bld) [#/Vol] 3.1 E12/L Low 4.3-5.9 [facility] Comment on above: Performed By: #### 2 176651 #### [facility] [address] [place] [address] WBC corrected for nucl RBC Auto (Bld) [#/Vol] 3.8 E9/L Low 4.0-11.0 [facility] Comment on above: Performed By: #### 2 546963 #### [facility] [address] [place] [address] CHEMISTRYOrdered By: SYSTEM SYSTEM on 02-20-2024 Albumin [...] 02-20-2024 Albumin [Mass/Vol] 3.1 g/dL Low 3.3-5.0 [facility] Comment on above: Performed By: #### 2 646490 #### [facility] [address] [place] [address] Albumin/Globulin (S) [Mass conc ratio] 0.9 Low 1.1-2.2 [facility] Comment on above: Performed By: #### 2 697631 #### [facility] [address] [place] [address] ALP [Catalytic activity/Vol] 190 Int._Unit/L High 21-98 [facility] Comment on above: Performed By: #### 2 004462 #### [facility] [address] [place] [address] ALT No additional P-5'-P [Catalytic activity/Vol] 77 Int._Unit/L High 6-46 [facility] Comment on above: Performed By: #### 2 988375 #### [facility] [address] [place] [address] Anion gap [Moles/Vol] 10 mmol/L Normal 6-16 [facility] Comment on above: Performed By: #### 2 159981 #### [facility] [address] [place] [address] AST [Catalytic activity/Vol] 120 Int._Unit/L High 5-43 [facility] Comment on above: Performed By: #### 2 348606 #### [facility] [address] [place] [address] Bilirubin [Mass/Vol] 7.8 mg/dL High 0.0-1.1 [facility] Comment on above: Performed By: #### 2 029216 #### [facility] [address] [place] [address] Calcium [Mass/Vol] 8.4 mg/dL Low 8.9-11.1 [facility] Comment on above: Performed By: #### 2 316252 #### [facility] [address] [place] [address] Chloride [Moles/Vol] 103 mmol/L Normal 101-111 [facility] Comment on above: Performed By: #### 2 347560 #### [facility] [address] [place] [address] CO2 [Moles/Vol] 27 mmol/L Normal 21-31 [facility] Comment on above: Performed By: #### 2 159011 #### [facility] [address] [place] [address] Creatinine [Mass/Vol] 0.6 mg/dL Normal 0.5-1.3 [facility] Comment on above: Performed By: #### 2 832788 #### [facility] [address] [place] [address] Globulin (S) [Mass/Vol] 3.4 g/dL Normal 1.4-4.0 [facility] Comment on above: Performed By: #### 2 702343 #### [facility] [address] [place] [address] Glucose [Mass/Vol] 192 mg/dL Normal 55-199 [facility] Comment on above: Performed By: #### 2 182059 #### [facility] [address] [place] [address] Potassium [Moles/Vol] 3.6 mmol/L Normal 3.5-5.3 [facility] Comment on above: Performed By: #### 2 208690 #### [facility] [address] [place] [address] Protein [Mass/Vol] 6.5 g/dL Normal 6.0-7.8 [facility] Comment on above: Performed By: #### 2 819020 #### [facility] [address] [place] [address] Sodium [Moles/Vol] 136 mmol/L Normal 135-145 [facility] Comment on above: Performed By: #### 2 473876 #### [facility] [address] [place] [address] Urea nitrogen [Mass/Vol] 6 mg/dL Normal 5-21 [facility] Comment on above: Performed By: #### 2 780209 #### [facility] [address] [place] [address] Urea nitrogen/Creatinine [Mass ratio] 10 No Units Normal 10-20 [facility] Comment on above: Performed By: #### 2 292307 #### [facility] [address] [place] [address] Consent for Treatmenton 06- Consent for Treatment [id number]#1.00T IFF Normal [facility] Ferritinon 02-20-2024 Ferritin [Mass/Vol] 527 ng/mL High 24-336 [facility] Comment on above: Performed By: #### 2 266509 #### [facility] [address] [place] [address] HEMATOLOGYOrdered By: SYSTEM SYSTEM on 02-20-2024 Basophils/100 [...] 02-20-2024 Iron [Mass/Vol] 227 microgram/dL High 35-153 [facility] Comment on above: Performed By: #### 2 294582 #### [facility] [address] [place] [address] Iron Saturationon 02-20-2024 Iron binding capacity [Mass/Vol] 230 microgram/dL Low 250-400 [facility] Comment on above: Performed By: #### 2 915357 #### [facility] [address] [place] [address] Iron saturation [Mass fraction] 99 % High 20-50 [facility] Comment on above: Performed By: #### 2 295737 #### [facility] [address] [place] [address] Transferrinon 02-20-2024 Transferrin [Mass/Vol] 164 mg/dL Low 200-370 [facility] Comment on above: Performed By: #### 2 164257 #### [facility] [address] [place] [address] Vit B12on 02-20-2024 Cobalamin (Vitamin B12) [Mass/Vol] pg/mL Normal 50-1500 [facility] Comment on above: Performed By: #### 2 867778 #### [facility] Laboratory [address] [place] [address] eGFRon 02-20-2024 eGFR 126 mL/min/1.73 m2 Normal >=59 [facility] Comment on above: Order Comment: Order added by Discern Expert. Performed By: #### 1 [id number] #### [facility] Laboratory [address] [place] [address] Family Medicine Office/Clini c Noteon 01-29-2024 Family [...] Cholelithiasis. The patient sought consultation at the [facility] in [place], but he was informed that surgical consultation must be at the main campus. He subsequently scheduled an appointment and was informed that they can do the consultation and they will contact [facility]. He was called again and was informed that he is required to consult with a canoe inspector final. He currently does not experience any pain [...] present. Neurological (more content not included)... Normal [facility] Comment on above: Result Comment: Elec [...] 4 mg Tab) potassium chloride (Potassium Chloride (Ima-Jotz-Tgt M20) 20 mEq oral tablet, extended release) [...] Barby MULTANI, Iglesia Mary Where: [facility] [place] 2023 3:15 PM EDT With: Mario Evans MD Where: [facility] Digestive Health Normal [facility] Patient Educationon 01-27-20 Patient Education Cardiovascular [...] these instructions at home: Medicines ? Take xvdl-lty-ffqdtlt and prescription medicines only as told by your health care provider. ? If you are taking blood thinners: ? Talk with your health care provider before you take any medicines that contain aspirin or NSAIDs, such as ibuprofen. These medicines (more content not included)... Normal [facility] Telephone Encounteron 2023 Activities Counselor Authentication Interface Message Text Pharmacy is attempting to schedule an appointment for this patient. Per protocol, we will make 1 attempt to contact patient before routing to nurse for follow up. Medication request adjusted to only a 3 month supply to allow time for appointment to be scheduled. Thank you. Normal [facility] Physician Referralon 024 Physician Referral [id number]#1.00T IFF Normal [facility] US Abdomen, Limitedon 2023 US Abdomen, [...] MD Transcribed by: 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 Normal [facility] Consent for Treatmenton 12-07 Consent for Treatment [id number]#1.00T IFF Normal [facility] Physician Referralon 024 Physician Referral [id number]#1.00T IFF Normal [facility] CNOVon 12-30-2023 CNOV Office Visit (GENSME ) RAMOWILL ([id number]) 1985 M Date Time Provider Department 12/30/23 [...] with abdominal pain and abnormal labs from [facility]. These values are visible [...] the option of seeing HPB surgery at [facility] as this would be the best [...] gallstones. Blood work was also performed through [facility] along with the CT scan. His liver function tests were elevated along with his INR and bilirubin aware of his baseline laboratory values. He does see a canoe inspector final and is being treated for liver failure. [...] naloxone 4 mg/actuation nasal spray (NARCAN) 1 [place] by nasal (alternating) route. oxyCODONE ir (OXYIR) [...] Visit Diagnosis:Gallstones [K80.20] Order(s):CONSULT TO L[facility] [[id number]] Order #: [id number]: 1 Prescriptions as of 12/30/2023 - CHOLECALCIFEROL, [...] - myc (more content not included)... Normal [facility] Office/Clini c Noteon 12-24-2023 Family Medicine Office/Clinic Note Chief Complaint TCM follow up. Dx Intractable pain and cirrhosis HPI Staff Reason for Visit: TCM Follow up Acute: Patient states he is having stomach issues (for the past month) and doesn't know if it is a parasite. Patient states he is having chronic headaches, fatigue, and uncontrollable gas. 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 Cholelithiasis and epigastric pain. [...] feels across his abdomen. He saw his security clerk, Dr. Evans who did an endoscopy in [...] for 3 days. He reports sleeping at [facility] (more content not included)... Normal [facility] Comment on above: Result Comment: Elec tronically Signed By: Loreta Padilla\.br\Date and Time Signed: 12/24/23 19:04 EDT\.br\Electronically Co-Signed By: Dagmar King\.br\Date and Time Co-Signed: 12/23/23 17:02 EDT Physician Referralon 024 Physician Referral [id number]#1.00 TIFF Normal [facility] Patient Educationon 12-23-19 24 Patient Education [...] added (diluted fruit juice). ? Eat bland, rgyx-sd-suqaay foods in small amounts as you are able. These foods include bananas, applesauce, rice, lean meats, toast, and crackers. ? Avoid drinking fluids that contain a lot of sugar or caffeine, such as energy drinks, sports drinks, and soda. ? Avoid alcohol. ? Avoid spicy or fatty foods. General instructions ? Take jibv-ayn-ixqwfqs and prescription medicines only as told by [...] and water are not available, use hand clutch operator. ? Make sure that everyone in your [...] recommendations for eating and drinking and take xnix-hmc-biburue and prescription medicines only as told by [...] provider. Document Revised: 02/28/2022 Document Reviewed: 02/28/2022 kSARIA Patient Education ? 2022 Reactivity. Esophageal Variceal Ligation Esophageal variceal ligation (EVL) [...] their blood (more content not included)... Normal [facility] .Interpretation:on 4 HCV Ab IA Ql Comment Invalid Interpretation Code [facility] Comment on above: Result Comment: Not infected with HCV unless early or acute infection is suspected (which may be delayed in an immunocompromised individual), or other evidence exists to indicate HCV infection. Performed at: Lab[address] [id number] PhD Poncho Prater Performed By: #### 2 203460, 191038350, 23568323, 8242288, 9582945, 572900651, 6757935, 0059122, 59092860, 9127989, 2398196, 3806578, 0335640472, 269749744, 6301517900, 4196858 ####[facility] [address] [place] [address] Acute Hepatitis A B C Panelo n 12-22-2023 HAV IgM IA Ql Negative Invalid Interpretation Code Negative [facility] Comment on above: Performed By: #### 2 592431, [id number], 94533243, 1646960, 4516857, 411993012, 5006329, 5028936, 59611567, 5485349, 4859233, 2907587, 0707969885, 617053082, 9601188646, 1430466 ####[facility] [address] [place] [address] HBV core IgM IA Ql Negative Invalid Interpretation Code Negative [facility] Comment on above: Performed By: #### 2 678111, 586650231, 62923028, 0572700, 0352094, 642865857, 5804187, 5505515, 43280633, 9744230, 0295465, 7054772, 3629392585, 499427705, 9668960834, 2547370 ####[facility] [address] [place] [address] HBV surface Ag IA Ql Negative Invalid Interpretation Code Negative [facility] Comment on above: Performed By: #### 2 993293, 566796096, 68467028, 3285909, 5836220, 379327538, 8354068, 2454143, 65839559, 7120483, 9122668, 2066897, 8610260781, 747065909, 2475382916, 6724522 ####[facility] [address] [place] [address] HCV IgG IA Ql Non-Reactive Invalid Interpretation Code Non Reactive [facility] Comment on above: Result Comment: [facility] [address] [place] [address] [id number] PhD Poncho Prater Performed By: #### 2 950315, 199072520, 52247366, 2274589, 9496198, 243920255, 9752680, 2525628, 27037274, 1072201, 4532271, 2133321, 2529263130, 624081306, 0126319477, 5219749 ####[facility] [address] [place] [address] HIV Screen 4th Generation wR fxon 12-22-2023 HIV 1+2 Ab+HIV1 p24 Ag IA Ql Non-Reactive Invalid Interpretation Code Non Reactive [facility] Comment on above: Result Comment: HIV Negative HIV-1/HIV-2 antibodies and HIV-1 p24 antigen were NOT detected. There is no laboratory evidence of HIV infection. Performed at: [address] [id number] PhD Poncho Prater Performed By: #### 2 130568, 673261647, 21613668, 0930089, 2371833, 776300212, 5921776, 9028753, 38368003, 9864527, 5790582, 4447163, 7362719272, 820386392, 1168177605, 5906787 ####[address] [place] [address] Ammoniaon 12-21-2023 Ammonia (P) [Moles/Vol] 46 mcmol High 11-35 [facility] Comment on above: Performed By: #### 2 685129, 3759466, 4210169, 4246928, 4464982, 28391057, 1270059, 1116098 ####[facility] [address] [place] [address] Bili Directon 12-21-2023 Bilirubin.direct [Mass/Vol] 1.6 mg/dL High 0.0-0.4 [facility] Comment on above: Order Comment: Order Added by Discern Expert. Performed By: #### 2 169616, 6290671, 4424591, 8886805, 1958431, 90933326, 0812586, 6845881 ####[place] [address] [address] CBC w/ Auto Diffon 4 Basophils/100 WBC (Bld) 0.5 % Normal 0.0-2.0 [facility] Comment on above: Performed By: #### 2 248431, 3141664, 6974017, 2526903, 8324128, 63680606, 0513255, 3010887 ####[address] [address] Basophils/Leukocytes Auto (Bld) [Pure # fraction] 0.0 E9/L Normal 0.0-0.2 [facility] Comment on above: Performed By: #### 2 110612, 1859766, 3542765, 5944370, 5931258, 36489706, 8269498, 4042738 ####[address] [address] Eosinophils (Bld) [#/Vol] 0.1 E9/L Normal 0.0-0.5 [facility] Comment on above: Performed By: #### 2 895914, 1704736, 8408549, 6789034, 3963010, 76980414, 4137723, 3601828 ####[address] [address] Eosinophils/100 WBC (Bld) 2.4 % Normal 0.0-8.0 [facility] Comment on above: Performed By: #### 2 729588, 0626034, 0824012, 3473860, 4946096, 81210351, 8446039, 7706224 ####[address] [address] Erythrocyte distribution width (RBC) [Ratio] 15.9 % High 10.9-14.2 [facility] Comment on above: Performed By: #### 2 566644, 6567206, 8976690, 4127170, 2118576, 02795684, 4273310, 3517719 ####[address] [address] Hematocrit (Bld) [Volume fraction] 32.3 % Low 37.7-49.0 [facility] Comment on above: Performed By: #### 2 502629, 6228256, 7188631, 6506423, 6437562, 61185759, 4106499, 3729891 ####[facility] [address] [place] [address] Hemoglobin (Bld) [Mass/Vol] 11.0 g/dL Low 13.5-17.5 [facility] Comment on above: Performed By: #### 2 060367, 4918808, 8173428, 4803202, 1739692, 92754353, 3752328, 5543419 ####[address] [place] [address] Lymphocytes (Bld) [#/Vol] 0.9 E9/L Low 1.0-4.0 [facility] Comment on above: Performed By: #### 2 848129, 4709476, 6399642, 8286453, 5212291, 50741643, 6025614, 0621252 ####[address] [address] Lymphocytes/100 WBC (Bld) 19.5 % Normal 14.0-50.0 [facility] Comment on above: Performed By: #### 2 623488, 6417857, 9137004, 0599314, 6768864, 97998440, 7149900, 6118414 ####[address] [place] [address] MCH (RBC) [Entitic mass] 36.3 pg High 27.0-34.0 [facility] Comment on above: Performed By: #### 2 038669, 4028329, 7906400, 7240983, 3053912, 40923290, 6404928, 3281758 ####[address] [address] MCHC (RBC) [Mass/Vol] 34.2 g/dL Normal 31.4-36.0 [facility] Comment on above: Performed By: #### 2 784432, 1165452, 7707262, 9809194, 7420930, 82632336, 4118750, 5790183 ####[address] [place] [address] MCV (RBC) [Entitic vol] 106.1 fL High 80.0-100.0 [facility] Comment on above: Performed By: #### 2 455390, 9757362, 6936071, 6215010, 4269597, 39579895, 4939936, 0475707 ####[address] [address] Monocytes (Bld) [#/Vol] 0.4 E9/L Normal 0.2-1.0 [facility] Comment on above: Performed By: #### 2 696511, 1319713, 2008434, 1056566, 1554000, 79434566, 5826211, 8059434 ####[address] [address] Neutrophils (Bld) [#/Vol] 3.0 E9/L Normal 2.0-7.5 [facility] Comment on above: Performed By: #### 2 400292, 5499302, 1872305, 8476872, 0524671, 38266959, 0757601, 0764087 ####[address] [address] Neutrophils/100 WBC (Bld) 68.7 % Normal 36.0-75.0 [facility] Comment on above: Performed By: #### 2 983408, 2801180, 3422932, 7090021, 2454407, 91025514, 1410998, 7597495 ####[address] [place] [address] Platelet 80.0 E9/L Low 150.0-500.0 [facility] Comment on above: Performed By: #### 2 488014, 8631219, 7305638, 6791832, 9858977, 14603706, 4444338, 9613494 ####[facility] [address] [place] [address] Platelet mean volume (Bld) [Entitic vol] 8.2 fL Normal 6.4-10.8 [facility] Comment on above: Performed By: #### 2 981860, 4018652, 0212344, 0065621, 8029724, 45019061, 6429606, 8519711 ####[facility] [address] [place] [address] RBC (Bld) [#/Vol] 3.0 E12/L Low 4.3-5.9 [facility] Comment on above: Performed By: #### 2 483730, 8795794, 1284455, 4064058, 0338012, 10880669, 0250872, 5395809 ####[facility] [address] [place] [address] WBC corrected for nucl RBC Auto (Bld) [#/Vol] 4.4 E9/L Normal 4.0-11.0 [facility] Comment on above: Performed By: #### 2 299720, 6465567, 6816595, 0444500, 8158647, 79312881, 8150597, 6447892 ####[facility] [address] [place] [address] CHEMISTRYOrdered By: SYSTEM SYSTEM on 12-21-2023 25-hydroxyvitamin [...] (Bld) [Mass fraction] 4.0 % Normal <=5.9% [facility] ChemAutoSS CMPon 12-21-2023 Albumin [Mass/Vol] 3.6 g/dL Normal 3.3-5.0 [facility] Comment on above: Performed By: #### 2 470537, 2094274, 3811917, 9710001, 9203975, 00465465, 0038458, 7685045 ####[facility] [address] [place] [address] Albumin/Globulin (S) [Mass conc ratio] 1.1 Normal 1.1-2.2 [facility] Comment on above: Performed By: #### 2 704688, 0494767, 0580318, 0218326, 0351637, 27472723, 0618889, 1131550 ####[facility] [address] [place] [address] ALP [Catalytic activity/Vol] 262 Int._Unit/L High 21-98 [facility] Comment on above: Performed By: #### 2 788519, 4260708, 2949391, 7092190, 8162518, 44091157, 7376571, 6638381 ####[facility] [address] [place] [address] ALT No additional P-5'-P [Catalytic activity/Vol] 60 Int._Unit/L High 6-46 [facility] Comment on above: Performed By: #### 2 795978, 8431756, 0737641, 1709451, 7383388, 62406581, 5136822, 5399136 ####[facility] [address] [place] [address] Anion gap [Moles/Vol] 13 mmol/L Normal 6-16 [facility] Comment on above: Performed By: #### 2 305728, 2955736, 1879441, 4374262, 2686757, 85023035, 0156069, 5065789 ####[facility] [address] [place] [address] AST [Catalytic activity/Vol] 91 Int._Unit/L High 5-43 [facility] Comment on above: Performed By: #### 2 437809, 2109575, 4334652, 4803165, 8289755, 52484035, 7819836, 4411645 ####[facility] [address] [place] [address] Bilirubin [Mass/Vol] 7.8 mg/dL High 0.0-1.1 [facility] Comment on above: Performed By: #### 2 662318, 8442429, 8249485, 7081327, 5371836, 54152380, 7592132, 1495228 ####[address] [place] [address] Calcium [Mass/Vol] 9.2 mg/dL Normal 8.9-11.1 [facility] Comment on above: Performed By: #### 2 721530, 6693090, 5256312, 7646201, 7003386, 87828796, 8175897, 8071463 ####[facility] [place] [address] Chloride [Moles/Vol] 99 mmol/L Low 101-111 [facility] Comment on above: Performed By: #### 2 877662, 3916635, 5544816, 7205017, 8470243, 51577069, 0091479, 8714089 ####[facility] [address] [place] [address] CO2 [Moles/Vol] 25 mmol/L Normal 21-31 [facility] Comment on above: Performed By: #### 2 205286, 3164286, 0397105, 6897610, 4517930, 56822134, 3131164, 1615661 ####[facility] [address] [place] [address] Creatinine [Mass/Vol] 0.7 mg/dL Normal 0.5-1.3 [facility] Comment on above: Performed By: #### 2 686481, 9774367, 1188147, 5959503, 2704253, 29187652, 3722530, 4252927 ####[facility] [address] [place] [address] Globulin (S) [Mass/Vol] 3.4 g/dL Normal 1.4-4.0 [facility] Comment on above: Performed By: #### 2 953737, 2150220, 5103427, 4888479, 6712337, 85894372, 3303131, 9870593 ####[facility] [address] [place] [address] Glucose [Mass/Vol] 112 mg/dL Normal 55-199 [facility] Comment on above: Performed By: #### 2 578714, 9677195, 5603131, 2286421, 0811444, 04924004, 6417353, 0347905 ####[facility] [address] [place] [address] Potassium [Moles/Vol] 3.8 mmol/L Normal 3.5-5.3 [facility] Comment on above: Performed By: #### 2 993435, 0329206, 5905882, 8252912, 5105658, 70204876, 8045904, 3722702 ####[facility] [address] [place] [address] Protein [Mass/Vol] 7.0 g/dL Normal 6.0-7.8 [facility] Comment on above: Performed By: #### 2 996900, 5349781, 4595482, 8355109, 7154112, 30079572, 0622046, 0535442 ####[facility] [address] [place] [address] Sodium [Moles/Vol] 133 mmol/L Low 135-145 [facility] Comment on above: Performed By: #### 2 248473, 4375751, 1978675, 5918539, 3488554, 78951366, 4556068, 6974461 ####[facility] [address] [place] [address] Urea nitrogen [Mass/Vol] 8 mg/dL Normal 5-21 [facility] Comment on above: Performed By: #### 2 757018, 7493597, 6087997, 9588955, 3312920, 02036136, 7805388, 0742496 ####[facility] [address] [place] [address] Urea nitrogen/Creatinine [Mass ratio] 11 No Units Normal 10-20 [facility] Comment on above: Performed By: #### 2 670750, 8106873, 9478722, 9242777, 3857774, 78447402, 4914959, 7711587 ####[facility] [address] [place] [address] COAGULATIONOrdered By: Gideon Murillo on 12-21-2023 INR Coag (PPP) [Relative time] 1.81 {INR} Invalid Interpretation Code [facility] Auto Coag Comment on above: Interpretive Data: I NR results are specifically intended to assess patients stabilized on long-term Anticoagulation therapy suggested INR s Less Intensive Anticoagulation 2.0 3.0 Conventional Range 3.0 4.5 PT Coag (PPP) [Time] 20.4 s High 9.4 - 1 2.5 second(s) [facility] Auto Coag Comment on above: Interpretive Data: [...] the same coagulation reagent and instrumentation as [facility]. Currently there are no coagulation studies available worldwide for children to 14 days, and no normal ranges. CRPon 12-21-2023 CRP [Mass/Vol] mg/L Normal <=1.9 [facility] Comment on above: Performed By: #### 2 950630, 9294172, 6938656, 9539135, 9685709, 65453648, 1492317, 7075405 ####[facility] [address] [place] [address] Consent for Treatmenton 12-06 Consent for Treatment [id number] IFF Normal [facility] Ferritinon 12-21-2023 Ferritin [Mass/Vol] 385 ng/mL High 24-336 [facility] Comment on above: Performed By: #### 2 243455, 959160535, 02037129, 2819209, 6027203, 263730388, 6867085, 5274883, 06872370, 5569151, 2096719, 4332020, 9419186063, 250677122, 2890084377, 0004084 ####[facility] [address] [place] [address] Folateon 12-21-2023 Folate [Mass/Vol] 19.8 ng/mL Normal >=6.7 [facility] Comment on above: Performed By: #### 2 493711, 730390648, 74998692, 2944927, 3208309, 479787926, 6616300, 4483632, 88938424, 6839454, 3126187, 0866411, 2933987112, 835486234, 2198735105, 9022536 ####[facility] [address] [place] [address] GGTon 12-21-2023 Gamma glutamyl transferase [Catalytic activity/Vol] 36 Int._Unit/L Normal 6-48 [facility] Comment on above: Performed By: #### 2 301515, 273568483, 96027486, 2635045, 9627122, 245573123, 9152076, 8421545, 43590802, 2843681, 2165062, 7280984, 3470236068, 906604723, 9823009456, 8927949 ####[facility] [address] [place] [address] HEMATOLOGYOrdered By: SYSTEM SYSTEM on 12-21-2023 Basophils/100 [...] Normal 4.0 - 11.0 E9/L Remisol Heme [id number] 12-21-2023 HbA1c (Bld) [Mass fraction] 4.0 % Normal <=5.9 [facility] Comment on above: Performed By: #### 2 680966, 333577776, 25418119, 2518982, 8465146, 611818506, 7300130, 8887854, 99574335, 2928661, 0858670, 2552244, 6570026512, 981632006, 7139648850, 6265178 ####[facility] [address] [place] [address] Ironon 12-21-2023 Iron [Mass/Vol] 269 microgram/dL High 35-153 [facility] Comment on above: Performed By: #### 2 016544, 449971986, 93452362, 5293999, 8847391, 918073958, 3109971, 1149063, 72878941, 9933205, 1480740, 7146107, 3299276705, 885301728, 7522176408, 0023402 ####[facility] [address] [place] [address] Lipase Levelon 12-21-2023 Lipase [Catalytic activity/Vol] 19 U/L Normal 13-58 [facility] Comment on above: Performed By: #### 2 447914, 1612114, 7115905, 8267361, 8195661, 50613021, 2887820, 4739753 ####[facility] [address] [place] [address] Magnesiumon 12-21-2023 Magnesium [Mass/Vol] 1.6 mg/dL Normal 1.3-2.4 [facility] Comment on above: Performed By: #### 2 686383, 571237249, 05061322, 9214043, 7832931, 711013692, 3666369, 2024560, 54087562, 4791172, 1315498, 9071418, 6170729281, 495923154, 7608310296, 5893619 ####[facility] [address] [place] [address] PTon 12-21-2023 INR Coag (PPP) [Relative time] 1.81 {INR} Invalid Interpretation Code [facility] Comment on above: Result Comment: INR results are specifically intended to assess patients stabilized on long-term Anticoagulation therapy suggested INR?s ?Less Intensive Anticoagulation? 2.0 ? 3.0 Conventional Range 3.0 ? 4.5 Performed By: #### 2 702800, 6637827, 5838398, 5327027, 4699583, 29767337, 9524529, 6324213 ####[facility] [address] [place] [address] PT Coag (PPP) [Time] 20.4 second(s) High 9.4-12.5 [facility] Comment on above: Result Comment: 15 [...] the same coagulation reagent and instrumentation as [facility]. Currently there are no coagulation studies available worldwide for children to 14 days, and no normal ranges. Performed By: #### 2 480010, 2672792, 3273611, 8729098, 8996435, 75252997, 0175097, 7187039 ####[facility] [address] [place] [address] Phosphoruson 12-21-2023 Phosphate [Mass/Vol] 3.6 mg/dL Normal 1.9-4.6 [facility] Comment on above: Performed By: #### 2 256020, 735474145, 62478329, 7868072, 3338881, 249550492, 2849412, 7991921, 59025018, 7134091, 3965448, 8870844, 4887663900, 799248801, 8027976944, 9084179 ####[facility] [address] [place] [address] Retic Counton 12-21-2023 Reticulocytes/100 RBC (Bld) 3.6 % High .5-2.2 [facility] Comment on above: Performed By: #### 2 516466, 641653598, 22375749, 9900454, 4793149, 357510073, 1954305, 8489048, 77792153, 4052223, 6362604, 1555250, 6737241619, 659077378, 1895458483, 6078085 ####[address] [place] [address] TIBC Calculatedon 12-21-2023 Iron binding capacity [Mass/Vol] 288 microgram/dL Normal 250-400 [facility] Comment on above: Performed By: #### 2 320404, 446251248, 18981605, 5921829, 7788525, 793599137, 1003322, 4289860, 25822838, 7718824, 1411739, 7366923, 5435919855, 711112563, 9395740169, 3188718 ####[address] [place] [address] Transferrin [Mass/Vol] 206 mg/dL Normal 200-370 [facility] Comment on above: Performed By: #### 2 300623, 259609379, 75299148, 8756623, 1473186, 575023439, 4316890, 7450033, 64317725, 1917336, 7126836, 5693456, 8780370459, 558257570, 9274928568, 6681696 ####[address] [address] TSH With T4fr Reflexon 12-20 TSH Qn 1.64 m[IU]/L Normal 0.34-5.60 [facility] Comment on above: Performed By: #### 2 979605, 205763474, 50698988, 0475193, 0805511, 907661013, 8468944, 9925850, 58930015, 9829705, 7516820, 6392133, 3169983748, 746783838, 4735245308, 3673251 ####[address] [place] [address] UA with Cult Rflxon 12-21-19 24 Bilirubin Ql (U) Negative Normal Negative [facility] Comment on above: Performed By: #### 4 664080413 ####[facility] [address] [place] [address] Clarity (U) Clear Normal Clear [facility] Comment on above: Performed By: #### 4 187140379 ####[facility] [address] [place] [address] Color (U) Yellow Normal Yellow [facility] Comment on above: Result Comment: Micr oscopic readings are only performed on those samples that meet specific criteria set forth by [facility]. Performed By: #### 4 [id number] ####[facility] [address] [place] [address] Glucose Ql (U) Negative Normal Negative [facility] Comment on above: Performed By: #### 4 265321543 ####[facility] [address] [place] [address] Hemoglobin Auto test strip (U) [Mass/Vol] Trace Abnormal Negative [facility] Comment on above: Performed By: #### 4 877359232 ####[facility] [address] [place] [address] Ketones Auto test strip Ql (U) Negative Normal Negative [facility] Comment on above: Performed By: #### 4 112653074 ####[facility] [address] [place] [address] Leukocyte esterase Auto test strip Ql (U) Negative Normal Negative [facility] Comment on above: Performed By: #### 4 629615245 ####[facility] [address] [place] [address] Nitrite Auto test strip Ql (U) Negative Normal Negative [facility] Comment on above: Performed By: #### 4 051102213 ####[facility] [address] [place] [address] pH (U) 6.5 [pH] Invalid Interpretation Code 5.0-9.0 [facility] Comment on above: Performed By: #### 4 302578901 ####[facility] [address] [place] [address] Protein Ql (U) Negative Normal Negative [facility] Comment on above: Performed By: #### 4 [id number] ####[facility] [address] [place] [address] Specific gravity (U) [Rel density] 1.009 Invalid Interpretation Code 1.005-1.030 [facility] Comment on above: Performed By: #### 4 [id number] ####[facility] [address] [place] [address] Urobilinogen (U) [Mass/Vol] Negative Normal Negative [facility] Comment on above: Performed By: #### 4 655538337 ####[facility] [address] [place] [address] Type of Urine collection method Cysto Normal [facility] Comment on above: Performed By: #### 4 [id number] ####[facility] [address] [place] [address] URINALYSISOrdered By: SYSTEM SYSTEM on 12-21-2023 Bilirubin Ql (U) Negative Normal Negativemg/dL [facility] UA Auto SS Clarity (U) Clear (12/21/23 1:21 PM) Normal Clear [facility] UA Auto SS Color (U) Yellow 1 (12/21/23 1:21 PM) Normal Yellow [facility] UA Auto SS Comment on above: Interpretive Data: M icroscopic readings are only performed on those samples that meet specific criteria set forth by [facility]. Glucose Ql (U) Negative Normal [...] test strip Ql (U) Negative Normal Negativemg/dL [facility] UA Auto SS pH (U) 6.5 *NA* (12/21/23 1:21 PM) Invalid Interpretation Code 5.0 - 9.0 FT UA Auto SS Protein Ql (U) Negative Normal Negativemg/dL [facility] UA Auto SS Specific gravity (U) [Rel density] 1.009 *NA* (12/21/23 1:21 PM) Invalid Interpretation Code 1.005 - 1.030 [facility] UA Auto SS Urobilinogen (U) [Mass/Vol] Negative Normal Negativemg/dL [facility] UA Auto SS URINALYSISOrdered By: Karina Vela on 12-21-2023 UA Spec Desc Cysto (12/21/23 1:21 PM) Normal [facility] UA Auto SS Uric Acidon 12-21-2023 Urate (U) [Mass/Vol] 3.8 mg/dL Normal 2.2-7.4 [facility] Comment on above: Performed By: #### 2 270410, 004976943, 82703289, 4039075, 2498718, 791696172, 1486140, 9757524, 47215027, 9669643, 2579555, 3427337, 7122247336, 122340086, 3749601588, 0440630 ####[facility] [address] [place] [address] Vit B12on 12-21-2023 Cobalamin (Vitamin B12) [Mass/Vol] pg/mL Normal 50-1500 [facility] Comment on above: Performed By: #### 2 912231, 644054872, 75255439, 0460343, 2667282, 268355451, 5779493, 5832467, 06185308, 1895602, 7014750, 5059950, 3495290738, 084580051, 6179823763, 1016084 ####[facility] [address] [place] [address] Vitamin D 25 Hydroxyon 12-20 25-hydroxyvitamin D3 [Mass/Vol] 17.7 ng/mL Low 30.0-100.0 [facility] Comment on above: Performed By: #### 2 010456, 736399727, 89606091, 2760367, 4567082, 860824149, 7230428, 0588344, 70953215, 8862100, 7268212, 5971768, 9001219405, 550963203, 9484234952, 7951805 ####[facility] [address] [place] [address] eGFRon 12-21-2023 eGFR 120 mL/min/1.73 m2 Normal >=59 [facility] Comment on above: Order Comment: Order added by Discern Expert. Performed By: #### 2 611710, 9076037, 9156814, 6228946, 6997059, 49699317, 4341103, 7056603 ####[facility] [address] [place] [address] Physician Referralon 024 Physician Referral [id number] IFF Normal [facility] Discharge Instructionson Discharge Instructions [id number] 0TIFF Normal [facility] Inpatient Clinical Summaryon 12-14-2023 Inpatient Clinical Summary [place] [id number] Clinical Summary Person Information: Name: WILL RALPH Age: 38 Years : 1985 Sex: Male PCP: Loreta Padilla Marital Status: Single Race: White Ethnicity: Non- or Language: Haitian Visit Id: Visit Reason: STAT TRANSPORT, ALLERGIC REACTION Speciality: Acuity: Enc Type: Observation Med Service: Medical Arrival: 12/11/2023 09:05:01 Discharge: 12/13/2023 12:15:00 Dispo Type: Home (Routine DC) Address: [address] [place] [address] [place] [id number] Provider Notes: Diagnosis: 1:Intractable pain; 2:Cirrhosis; 3:Tobacco [...] Refills: 0. Misc Prescription (Misc DME Prescription) [place] SAP Dressing 4 x 4 dressing. Misc [...] pain. Refills: 0. potassium chloride (Potassium Chloride (Ama-Xoyx-Zyy M20) 20 mEq oral tablet, extended release) 1 Tablets By Mouth 2 times a day. Refills: 3. spironolactone (spironolactone 50 mg Tab) 1 Tablets By Mouth every day. sulfamethoxazole-trimet hoprim (Bactrim) By Mouth. taskes 3 times a week. Care Team Members: Attending Physician: Desi Mena MD Consulting Physician: Referring Physician: Follow up: With: Address: When: Loreta Cummings [address] [employer], [address], [place] [address] [address] Business (1) Type Location Start Finish State Open [facility] 01/27/2024 9:40 AM 01/27/2024 10:00 AM Confirmed BADH Follow Up [facility] 05/12/2024 3:15 PM 05/12/2024 3:30 PM Confirmed Patient Education Information: Drug Allergy, Icie-bm-Jiue; Chronic Back Pain; Cirrhosis Normal [facility] Inpatient Patient Summaryon 12-14-2023 Inpatient Patient Summary [address] [address] Patient Discharge Instructions PERSON INFORMATION [...] up: With: Address: When: Loreta Cummings [address] [employer], [address], [address] [address] Business (1) In the event that this physician does not participate in your insurance network, please consult with your insurance company to find a nearby participating provider. Type Location Start Finish State FM Open [facility] Ian 01/27/2024 9:40 AM 01/27/2024 10:00 AM Confirmed BADH Follow Up [facility] 05/12/2024 3:15 PM 05/12/2024 3:30 [...] Dose: __ Misc Prescription (Misc DME Prescription) [place] SAP Dressing 4 x 4 dressing. Last [...] __Next Dose: __ potassium chloride (Potassium Chloride (Ari-Cslg-Pda M20) 20 mEq oral tablet, extended release) [...] By Mout (more content not included)... Normal [facility] Population [facility] 12-14-19 Population Health Case Information Case Priority: [...] Oral, q6hr, PRN, Not taking Potassium Chloride (Epw-Uflw-Ipo M20) 20 mEq oral tablet, extended release, [...] Outbound Duration (more content not included)... Normal [facility] BMPon 12-13-2023 Anion gap [Moles/Vol] 8 mmol/L Normal -16 [facility] Comment on above: Performed By: #### 2 [id number], [id number] ####[facility] [address] [place] [address] Calcium [Mass/Vol] 8.0 mg/dL Low 8.9-11.1 [facility] Comment on above: Performed By: #### 2 [id number], [id number] ####[facility] [address] [place] [address] Chloride [Moles/Vol] 105 mmol/L Normal 101-111 [facility] Comment on above: Performed By: #### 2 [id number], [id number] ####[facility] [address] [place] [address] CO2 [Moles/Vol] 26 mmol/L Normal 21-31 [facility] Comment on above: Performed By: #### 2 [id number], [id number] ####[facility] [address] [place] [address] Creatinine [Mass/Vol] 0.5 mg/dL Normal 0.5-1.3 [facility] Comment on above: Performed By: #### 2 [id number], [id number] ####[facility] [address] [place] [address] Glucose [Mass/Vol] 97 mg/dL Normal 55-199 [facility] Comment on above: Performed By: #### 2 [id number], [id number] ####[facility] [address] [place] [address] Potassium [Moles/Vol] 4.5 mmol/L Normal 3.5-5.3 [facility] Comment on above: Performed By: #### 2 [id number], [id number] ####[facility] [address] [place] [address] Sodium [Moles/Vol] 134 mmol/L Low 135-145 [facility] Comment on above: Performed By: #### 2 [id number], [id number] ####[facility] [address] [place] [address] Urea nitrogen [Mass/Vol] 9 mg/dL Normal 5-21 [facility] Comment on above: Performed By: #### 2 [id number], [id number] ####[facility] [address] [place] [address] Urea nitrogen/Creatinine [Mass ratio] 18 No Units Normal 10-20 [facility] Comment on above: Performed By: #### 2 [id number], [id number] ####[facility] [address] [place] [address] CHEMISTRYOrdered By: SYSTEM SYSTEM on 12-13-2023 Anion [...] 5 mg Tab) potassium chloride (Potassium Chloride (Wnh-Rlyq-Dnu M20) 20 mEq oral tablet, extended release) [...] EDT With: John ALBERTS, Loreta Zuniga Where: [facility] Normal [address] [place] [address]- \.br\ New Follow Up Appointments after Discharge\.br \ Follow Up with Loreta Cummings When: In 0 days\.br\ Where:\.br\ [address]\ [address]\.br\ [place] [address]-\.br\ Business (1)\.br\ Medications\.br \ What How Much [...] Misc Prescription (Misc DME Prescription) See instructions [place] SAP Dressing 4 x 4 dressing \.br\ [...] @ 12pm\.br\ Unchanged potassium chloride (Potassium Chloride (Hfw-Piil-Jkp M20) 20 mEq oral tablet, extended release) [...] you are allergic to.\.br\ ? \.br\ Take umia-ygh-bqxvwi r and prescription medicines only as told by your doctor.\.br\ ? \.br\ If you were given allergy medicines, do not drive until your health care provider tells you it is safe.\.br\ ? \.br\ If you have hives or a rash:\.br\ ? \.br\ Use pydd-lou-hkewmh r medicines as told by your doctor.\.br\ ? \.br\ Put cold, wet cloths on your skin.\.br\ ? \.br\ Take baths or showers in cool water. Avoid hot water.\.br\ ? \.br\ [facility] Monitor Recordon 12-13-2023 Monitor Record [id number]#1.00 TIFF Normal [facility] Patient Education - Texton 0 12-13-2023 [...] provider before taking any new medicines, including faof-nkc-nigqzus medicines such as NSAIDs. ? Rest as needed. ? Eat a well-balanced diet. ? Limit your salt or water intake, if your health care provider asks you to do this. ? Do not drink alcohol. This is especially important if you routinely take acetaminophen. ? Keep all f (more content not included)... Normal [facility] eGFRon 12-13-2023 eGFR 133 mL/min/1.73 m2 Normal >=59 [facility] Comment on above: Order Comment: Order added by Discern Expert. Performed By: #### 2 [id number], [id number] ####[facility] [address] [place] [address] CHEMISTRYOrdered By: SYSTEM SYSTEM on 12-11-2023 Anion [...] - 11.0 E9/L Remisol [facility]e URINALYSISOrdered By: CopyRightNow SYSTEM on 12-11-2023 Color (U) Yellow 1 (12/11/23 9:36 AM) Normal Yellow [facility] UA Auto SS Comment on above: Interpretive Data: M icroscopic readings are only performed on those samples that meet specific criteria set forth by [facility] Laboratory. Glucose (U) [Mass/Vol] Negative Normal [...] Auto SS Work Phone: Progress Noteson 10-01-2023 Activities Counselor Authentication Interface Message Text Hematology AND Oncology [...] B27 positive) 2003 Followed with Rheum at [facility] Open fracture of other and unspecified [...] 120 min Stress: Stress Concern Present (02/27/2023) [place] [employer] Occupational [employer] - Occupational Stress Questionnaire Feeling of Stress : Very much Social Connections: Socially Isolated (02/27/2023) Social Connection and Isolation Panel [NHANES] Frequency of Communication with Friends and Family: More than three times a week Frequency of Social Gatherings with Friends and Family: Patient refused Attends Orthodoxy Services: Never Active Member of Clubs or [...] tab (more content not included)... Normal [facility] CHEMISTRYOrdered By: Huber Jha on 07-24-2023 Albumin DL <= 20 mg/L (U) [Mass/Vol] microgram/mL Normal 0.0 - 19.0 mcg/mL [facility] Albumin Elph (U) [Mass fraction] mg/dL Invalid Interpretation Code [facility] Comment on above: Interpretive Data: T he reference range and other method performance specifications have not been established for this test; results should be integrated into the clinical context for interpretation. Creatinine (U) [Mass/Vol] 22.5 mg/dL Invalid Interpretation Code [facility] Comment on above: Interpretive Data: T he reference range and other method performance specifications have not been established for this test; results should be integrated into the clinical context for interpretation. U Prot/Creat Ratio [facility] Invalid Interpretation Code 0.00 - 200.00 [facility] Basic [facility] 2000 panelon 04-21-2023 Anion gap [Moles/Vol] 12 mmol/L 10 - 20 [facility] Calcium [Mass/Vol] 8.6 mg/dL 8.4 - 10. 4 mg/dL [facility] Chloride [Moles/Vol] 104 mmol/L 97 - 111 mmol/L [facility] CO2 [Moles/Vol] 26 mmol/L 21 - 30 mmol/L [facility] Creatinine [Mass/Vol] 0.52 mg/dL Low 0.80 - 1.30 mg/dL [facility] GFR/1.73 sq M.predicted MDRD (S/P/Bld) [Vol rate/Area] 132 mL/min/{1.73_m2} - PINF [facility] Comment on above: 2020 CKD EPI [...] Inclusion of Race in Diagnosing Kidney Disease. [place] Journal of Kidney Diseases 202;79(2):268-88.e1. 2. N Engl J Med 2020 Vol. 385 Issue 19 Pages 1206-8572 Glucose [Mass/Vol] 80 mg/dL 68 - 110 [...] [Mass/Vol] mg/dL Low 36 - 220 mg/dL [facility] Interpretation and review of laboratory results Abnormal [facility] HEPATIC FUNCTION PANELon Albumin [Mass/Vol] 3.2 g/dL Low 3.4 - 5.1 g/dL [facility] ALP [Catalytic activity/Vol] 284 U/L High [facility] ALT [Catalytic activity/Vol] 38 U/L [facility] AST [Catalytic activity/Vol] 70 U/L High [facility] Bilirubin [Mass/Vol] 7.5 mg/dL High 0.1 - 1.5 mg/dL [facility] Bilirubin.direct [Mass/Vol] 1.89 mg/dL High 0.10 - 0.30 mg/dL [facility] Protein [Mass/Vol] 7.6 g/dL 6.2 - 8.3 g/dL [facility] LDHon 04-21-2023 LDH [Catalytic activity/Vol] 257 U/L [...] reticulocytes (Bld) 0.46 % 0.30 - 0.50 [facility] Interpretation and review of laboratory results Abnormal [facility] Reticulocytes (Bld) [#/Vol] 0.09 10*3/uL High [facility] Reticulocytes/100 RBC (Bld) 2.6 % High 0.5 - 1.5 % [facility] CHEMISTRYOrdered By: SYSTEM SYSTEM on 03-22-2023 [...] 10.1 E9/L Normal 4.0 - 11.0 E9/L [facility] HemeAutoSS *SPECIMEN FOR SURGICAL PATHO LOGYOrdered By: Daniella Conde on 01-27-2023 Case Report Surgical Pathology Report Case: [id number] Authorizing Provider: Erica Rock MD Collected: 01/20/2023 2564 Ordering Location: [facility] Radiology Received: 01/20/2023 9282 Pathologist: Daniella Conde MD Specimen: Liver biopsy, Transvenous biopsy nontargeted [facility] Work Phone: Clinical Information [facility] Work Phone: Final Diagnosis [id number] bGF uZzEwMzNcZnRuYmpcdWMxIH tccnRmMVxlcGljMTAzMDVcd 5tck9bmnSMoNZFle2lyq8Aa dHBncGFyXGpleHBhbmRcbm9 6wMY2fR58HB4kBHWeEcQ4NZ AfbkX5Jrk9DNNtYWYtbWHvR 462u7llv4tqneOnlXS5JEEm YWPqY1PqJV3qTNUciSHlH86 sqDWtGZC9MDJnGKNzwZXoOB DiTFB8IAQysPWnB3crOBNvL Q6gtejqYDumABcqLSLtmHL3 YLSscFEcY4WvCREnDNdpTXL rtun8HnUwHg3vzNQfsLuvCU fzEAPwJC8vt3pxR0BwiZNlY HBsYWluXGJcZnMyMCBBLiAi NDy0ZEZkIWWoHT0pgyIshDq bhyUyvA4ly7deOXUyygruAI nzUCIpo3kkG9GikVAyCFUgA FJLiVIliY6hsQKvRYMbKJIO l98qEC13IYNoUYZdeHDfrHO cNWB3GOxhLPDgb4LsdWLeJF XnzuzzMOLcWev0vNRRe19nN J02LxscIJs9tSMsWPHfBXLm zGbkhM1biANgQeT7tXXbJ0t ckmdrt9eaUWbfNJ1cnYXwcq klIW47OYeaz9UvsK7caJZip Ih3DJqaGWKsvZHnJVN1QA3c GBVju0VoN7VvMIOBk5owxaR yIHdpdGggdGhlIHBhdGllbn ApgpKlhOB6n7Q1NNC1wRLrC cjfLGooQ7RuUKZmEOXpwSGa xJtraULqz9b1xQPtzXJfhB2 jrEMeT0aqdfzjj9rjGvTvZ4 EzKGAbp3imDNHhknHggXXhr oguQIDvnf17fV0vkBSjtLHh JXYir8KhoIyjSVtjrsCcLNN flsKiX3h7jKHxoQTrSTtrrz HbOUJeKkIphfkgRGE5r2qos GYxXHNzdGVjZjIyMDAwXGFu n6fwFCEjzJUjXyLaJuEjJfV dKcezdHByJZOkUyEea3quj2 76fNXie6bnSANaGuK3jZNgP NAhzBIvK744KUCbGOygk6je l2QcZKMuuEPly1U6RMLCtjk ppQq7fAvhA25tr2M0SlogV7 ojSXRvOGGqO9BjXV9jTISlS bg0GMM8RJZ4IEZaXZv2PQyo XDDeVFKbRuq2XUp0ZIkxoqT qAFbszoScxlGiRpa6VSMwD9 72PZB0cFnzm1bcXSJ3XJEwJ TNwNwNyUl0qbMMuW283PHUv KTUMAXWeqGn1MUUikxVscgW noONCi050Y131h6pmOVPzsu BcgMdLkluwr1pwS232WWZqc GVydzEyMjQwXHBhcGVyaDE1 YERjGV8ffbznPBbdQQciHCP owjZ5XBTnsDQpR2XnZURmZZ 1hhsosIQZ0QZahHAObSBH1W cXiOSJbc0Yhbwv1KoYkcc2c qu52BKL0s9VfuSozCND7ZZG 5QhXfBc9knGKvNCClAK4ePn HulNPbWNGwih31jRymEKlay qVovM2dUeRuVULayCOnEUEj VM4vvWIzHVLgwK7jbpdyHHR nYnJkcmhlYWRccGdicmRyZm 1vkXxdRFS3XQcxP0kfwK8xZ tD1ZDcdO7igiU7zZZw4KOwp sMC9AIYmsJ3vRZ7fppkav9s nXBzvLQujILFmogF1vpW2UB YczVThE1IqeU0nQSHwGW7ep izny3ggTYR9TMevFRDnXAS2 ZvPxVDEbc9Oyoqy9TmCeu3M tzBFnZXevT86pq342JLMkjl BmO9nfcMLsqxowmVWolbtyT YwpeiL7PMBjTOLeFBfbIPSi XGZzMjJcbGFuZzEwMzNcaGl jaFxmMVxkYmNoXGYxXGxvY2 hcZjFcZnMyMlxwYXJccGxha S0fXgOdHuKfHMvoHG6uPMDt O6loyVBfAWNzNZTeX4hvHmX qiJ7djCurAVuiooToWBLwTF Z4qw3whUIgwUz6WFVzC25mU HDAfQBxFhpyD5FryRPlOLR9 rKRpTE8SUI9xFKZ3ZyLqVdK wMjMuXHBhclxwYXJccGxhaW 3dGrJwPqFtMEzoEB0aDYBmN 5udeQTyXDYlRDOtO6wiIiZs iN6iyOkkUFosYsInTzHbZIj cBEvdP0BkiBbggMO6bPB6PV njzLLrt22tOWibwANry78qu CD6WQMkeCpeOYPgWQkod4K8 aWMgZXZhbHVhdGlvbiBvZiB 3eJTzGKYfmvDtd7GdO6rgPJ 6mlbdhQD0fIIwasyGjbdXcP GVyZWQgdGhlIGZpbmFsIGRp RQxep2SjzfehognoDZrawIT pblxmMVxmczIyXGxhbmcxMD ZtZWceL3iuEqMwHJAmkUocA Ldgn6JxTARiHAPwPdXqjIMv XIVjez88 [facility] Work Phone: Gross Description i3omwRWaYBYcfHSfCQRc Nlx rplQuAXXjnOPpW3YnehtrRY uqJI5oFV9nlRstvRRyaFQqB JTxCwEye9uqn166dBTse4ma ITNOwdkqzXl5gPerQ51vg5K 3GqogQ55ynQPlUID8GAXgQC QixGLjXBXyTCY2OGDkbSAhZ 8abFBGuHZ7gbomiSKptCLoh ZSCdzRS8SATquFVrY8PdZFE uFBkvUEZtmrl0NwUqOw4nxB VyeTcyMFxwYXJkXHBsYWluX VIrJjSaYD5eILRhfKCnp6a2 qR2eBHSiRNDwZkhtceNyNVB fi4PcaCKnNEVzglXTxDWsv4 WwR9xbLK5naLKaroRkHMg3W RPiDrOvv5znsI2bNVWspI9m nTHlP04oaEAjquUpCRNeTLE vdMAlFArleTxsoIJ8xWTonH trHH5cuHKjGX3bXFhiTGeem fJbx8KsMT37bLJqhssbJL0o KRG2haqgY9QdUK29lWTenp3 uMSJbp9XvTUPhDVYxfOKpkq LcgB5dt0yzRbRRqYGpn2JnR 9exDO7oL42bh3ytuZDqt1Dl IzO2ZU2vogVkQNqeNHTwudX tVcuxlNBdEVYjcQUym1SfxD 8sYZEuGVOvcDFuheSlTQ95K NCsBBakCVengxz3lOBoriKz dGhlIDAuMSBjbSBpbiBkaWF tTUPwvv1mLYzyOVMoZPQtzD OqYLasOTW7Ed9paPTkOHOtg nK7t2NcFFttAN6rYPEfZZDk ELB6HT9uYoXtKMEqvwllDHP va5NdeHFbiJ== [facility] Work Phone: [employer] u9bpiXAeYCGykIFwWXPh NVx kdwRuNIOcjPEkN7UliplkTJ lpUY6rRE9lpQtwwCKvlAXcX GBkHwBzg8dyo023qFSga0ej YRBJzfmdmNn9wSdwG92yd3M 8QwtvV00chRKkGLI9MGEjJP YfgVSuFUUeLXX4PZSbxYBfE 0ubBZKiSD2yakkoMWyfXTft WAVncWY6GDJltQWxZ8SqGOY pMXrjSHSvtsa4XzGyLc6ddH VyeTcyMFxwYXJkXHBsYWluX LVlNkYkUG9eFNusbZVeoHYs zDO8iR7mJY6oIFQagrqaYZJ pJqg1aRBOkGWnvse7iKDcVx ebLVVvjYIuVSBdtZEjta8rP LngLHSjRAteU4uogVzqhHXs Q6timzdoj6ikETCsvrqwKCG FJl5VWlSjOaDtMaHjDFXrbt OwOs5eADbipJXcK5h3z4OcC XEdoEAlD9xfIrZeOGHloZAg GVJkIVIxgyxlYVAwITsmD4I yWPMoFQWcgf1lAKNkzeaiOH JkXHBhcn0= [facility] Work Phone: [facility] Work Phone: [...] wedged hepatic: 32. Moderate sedation intraservice time 1143-4130 FLUOROSCOPIST: ERICA ROCK FLUORO TIME: 41.6 Minutes [...] microaccess catheter under fluoroscopic guidance. A 10 [place] curved tip renal vein sheath was then advanced over the wire into the right atrium. The obturator was removed and a 5 [place] MPB catheter was used to select the [...] vein was again selected with a 5 [place] MPB catheter which was then exchanged over an Amplatz wire for the 10 [place] venous sheath. This was repeated several times for attempted transvenous liver biopsy through the right hepatic vein; however, the 10 [place] sheath withdrew during attempted advancement of the biopsy catheter. The 10 [place] venous sheath was then withdrawn into the intrahepatic IVC. The middle hepatic vein was selected with the same 5 [place] catheter which was then exchanged over an Amplatz wire for the 10 [place] venous sheath. The 10 [place] transvenous biopsy catheter was then advanced into the middle hepatic venous sheath and deployed twice for liver biopsy. The transvenous biopsy catheter and a 10 [place] venous sheath were removed. Satisfactory hemostasis was [...] wedged hepatic: 32. Moderate sedation intraservice time 5140-1894 FLUOROSCOPIST: ERICA ROCK FLUORO TIME: 41.6 Minutes [...] microaccess catheter under fluoroscopic guidance. A 10 [place] curved tip renal vein sheath was then advanced over the wire into the right atrium. The obturator was removed and a 5 [place] MPB catheter was used to select the [...] vein was again selected with a 5 [place] MPB catheter which was then exchanged over an Amplatz wire for the 10 [place] venous sheath. This was repeated several times for attempted transvenous liver biopsy through the right hepatic vein; however, the 10 [place] sheath withdrew during attempted advancement of the biopsy catheter. The 10 [place] venous sheath was then withdrawn into the intrahepatic IVC. The middle hepatic vein was selected with the same 5 [place] catheter which was then exchanged over an Amplatz wire for the 10 [place] venous sheath. The 10 [place] transvenous biopsy catheter was then advanced into the middle hepatic venous sheath and deployed twice for liver biopsy. The transvenous biopsy catheter and a 10 [place] venous sheath were removed. Satisfactory hemostasis was [...] pressures and increased portosystemic gradient. MACRO: None [facility] No Panel Informationon 01-20 Radiology Study observation (narrative) [facility] PROTHROMBIN TIME AND INRon 0 01-20-2023 INR Coag (PPP) [Relative time] 2.49 {INR} High 0.90 - 1.10 [facility] Interpretation and review of laboratory results Abnormal [facility] PT Coag (PPP) [Time] 27.9 s High [facility]r [facility]al [facility] Basic metabolic 2000 panelon 01-12-2023 Anion [...] Inclusion of Race in Diagnosing Kidney Disease. [place] Journal of Kidney Diseases 202;79(2):268-88.e1. 2. N Engl J Med 2020 Vol. 385 Issue 19 Pages 7545-3199 Glucose [Mass/Vol] 82 mg/dL 68 - 110 [...] [facility] CBC panel Auto (Bld)on 01-12 Erythrocyte distribution width (RBC) [Ratio] 15.7 % High 11.5 - 14.5 % [facility] Hematocrit (Bld) [Volume fraction] 35.4 % Low 41.0 - 53.0 % [facility] Hemoglobin (Bld) [Mass/Vol] 12.1 g/dL Low 13.9 - 16.3 g/dL [facility] [...] 4.5 - 11.5 K/uL M [facility] Diabetes tracking panelOrder ed By: Moi Christianson on 01-12-2023 Average glucose Estimated from glycated hemoglobin (Bld) [Mass/Vol] 82 mg/dL [facility] HbA1c (Bld) [Mass fraction] 4.5 % 4.0 - 5.6 % [facility] HEPATIC FUNCTION PANELon Albumin [Mass/Vol] 3.2 g/dL Low 3.4 - 5.1 g/dL [facility] ALP [Catalytic activity/Vol] 336 U/L High [facility] ALT [Catalytic activity/Vol] 43 U/L High [facility] AST [Catalytic activity/Vol] 73 U/L High [facility] Bilirubin [Mass/Vol] 8.2 mg/dL High 0.1 - 1.5 mg/dL [facility] Bilirubin.direct [Mass/Vol] 2.28 mg/dL High 0.10 - 0.30 mg/dL [facility] Protein [Mass/Vol] 7.9 g/dL 6.2 - 8.3 g/dL [facility] INSULINon 01-12-2023 Insulin Free Qn 38.9 High [facility] Interpretation and review of laboratory results Abnormal [facility] No Panel Informationon 01-12 Interpretation and review of laboratory results Abnormal [facility] PROTHROMBIN TIME AND INRon 0 01-12-2023 INR Coag (PPP) [Relative time] 1.87 {INR} High 0.90 - 1.10 [facility] Interpretation and review of laboratory results Abnormal [facility] PT Coag (PPP) [Time] 21.0 s High [facility] ALPHA FETOPROTEIN TUMOR ANDRIA Jeri 11-13-2022 AFP 4.4 ng/mL NINF - 8.4 ng/mL [facility] Interpretation and review of laboratory results Normal [facility] Basic metabolic 2000 panelon 11-13-2022 Anion [...] MDRD (S/P/Bld) [Vol rate/Area] 134 mL/min/{1.73_m2} [facility] Comment on above: 2020 CKD EPI [...] Inclusion of Race in Diagnosing Kidney Disease. [place] Journal of Kidney Diseases 202;79(2):268-88.e1. 2. N Engl J Med 2020 Vol. 385 Issue 19 Pages 9280-4780 Glucose [Mass/Vol] 70 mg/dL 68 - 110 [...] (Bld) 63.2 % 31.0 - 76.0 % [facility] Platelet mean volume (Bld) [Entitic vol] 8.2 fL 7.5 - 11.2 fL [facility] Platelets (Bld) [#/Vol] 82 10*3/uL Low 150 - 400 K/uL [facility] RBC (Bld) [#/Vol] 2.69 10*6/uL Low [facility] WBC (Bld) [#/Vol] 5.7 10*3/uL 4.5 - 11.5 K/uL [facility] DIRECT ANTIGLOBULIN TESTon 0 11-13-2022 Direct antiglobulin test.poly specific reagent Ql (RBC) Negative [facility] HAPTOGLOBINon 11-13-2022 Haptoglobin [Mass/Vol] mg/dL Low 36 - 220 mg/dL [facility] Interpretation and review of laboratory results Abnormal [facility] HEPATIC FUNCTION PANELon Albumin [Mass/Vol] 2.9 g/dL Low 3.4 - 5.1 g/dL [facility] ALP [Catalytic activity/Vol] 386 U/L High [facility] ALT [Catalytic activity/Vol] 36 U/L [facility] AST [Catalytic activity/Vol] 68 U/L High [facility] Bilirubin [Mass/Vol] 6.9 mg/dL High 0.1 - 1.5 mg/dL [facility] Bilirubin.direct [Mass/Vol] 1.88 mg/dL High 0.10 - 0.30 mg/dL [facility] Protein [Mass/Vol] 7.0 g/dL 6.2 - 8.3 g/dL [facility] LDHon 11-13-2022 LDH [Catalytic activity/Vol] 255 U/L High [facility] No Panel Informationon 11-13 Interpretation and review of laboratory results Abnormal [facility] Interpretation and review of laboratory results Abnormal [facility] PROTHROMBIN TIME AND INRon 0 11-13-2022 INR Coag (PPP) [Relative time] 1.71 {INR} High 0.90 - 1.10 [facility] Interpretation and review of laboratory results Abnormal [facility] PT Coag (PPP) [Time] 19.2 s High [facility] RETICULOCYTE COUNTon 023 Immature reticulocytes/Total reticulocytes [...] specimen(s) and have rendered the final diagnosis(es). [facility] Work Phone: [facility] Work Phone: Basic metabolic 2000 panelon 08-25-2022 [...] (S/P/Bld) [Vol rate/Area] 131 mL/min/{1.73_m2} - PINF [facility] Comment on [...] Inclusion of Race in Diagnosing Kidney Disease. [place] Journal of Kidney Diseases 2021;79(2):268-88.e1. 2. N Engl J Med 2020 Vol. 385 Issue 19 Pages 1564-3136 Glucose [Mass/Vol] 55 mg/dL Low 68 - 110 mg/dL [facility] Potassium [Moles/Vol] 3.3 mmol/L 3.3 - [...] 3.0 g/dL Low 3.4 - 5.1 g/dL [facility] ALP [Catalytic activity/Vol] 389 U/L High [...] [Mass/Vol] 7.2 g/dL 6.2 - 8.3 g/dL [facility] Transferrin [Mass/Vol] 177 mg/dL Low 210 - 375 mg/dL [facility] Laboratory - Serology - non- microon 08-25-2022 Immune complex.IgG [Mass/Vol] 1995 mg/dL High 768 - 1632 mg/dL [facility] No Panel Informationon 08-25 Interpretation and review of laboratory results Abnormal [facility] Interpretation and review of laboratory results Abnormal [facility] Interpretation and review of laboratory results Abnormal [facility] XR Knee - right Viewson 12-0 [...] the calcaneus anteriorly. Right knee MACRO: None [facility] Radiology Study observation (narrative) [facility] XR Knee - right ViewsOrdered By: Colby Mcintosh on 08-15-2022 [facility] Work Phone: Basic metabolic 2000 panelon [...] Inclusion of Race in Diagnosing Kidney Disease. [place] Journal of Kidney Diseases 202;79(2):268-88.e1. 2. N Engl J Med 1 Vol. 385 Issue 19 Pages 4177-2720 Glucose [Mass/Vol] 89 mg/dL 68 - 110 mg/dL [facility] Potassium [Moles/Vol] 3.0 mmol/L Low 3.3 - 5.3 mmol/L [facility] Sodium [Moles/Vol] 132 mmol/L Low 135 - 148 mmol/L [facility] Urea nitrogen [Mass/Vol] 5 mg/dL Low 8 - 22 mg/dL [facility] - Chemistry and C hemistry - challengeon 08-14-2022 Urate [Mass/Vol] 1.9 mg/dL Low 2.0 - 7.3 mg/dL [facility] Albumin [Mass/Vol] 2.9 g/dL Low 3.4 - 5.1 g/dL [facility] ALP [Catalytic activity/Vol] 245 U/L High [...] Interpretation and review of laboratory results Abnormal [facility] No Panel Informationon 08-14 Interpretation and review of laboratory results Abnormal [facility] Interpretation and review of laboratory results Abnormal [facility] Interpretation and review of laboratory results Normal [facility] Interpretation and review of laboratory results Abnormal [facility] A negative leukocyte esterase AND negative [...] (positive predictive value for UTI around 50%) [facility] US.doppler Lower extremity v ein - [...] extremity deep venous thrombosis identified. MACRO: None [facility] Radiology Study observation (narrative) [facility] US.doppler Lower extremity v ein - rightOrdered By: Enrique Basurto on 08-14-2022 [facility] Work Phone: Basic metabolic 2000 panelon 05-06-2022 Anion gap [Moles/Vol] 11 mmol/L 10 - 20 [facility] Calcium [Mass/Vol] 8.9 mg/dL 8.4 - 10. 4 mg/dL [facility] Chloride [Moles/Vol] 105 mmol/L 97 - 111 mmol/L [facility] CO2 [Moles/Vol] 25 mmol/L 21 - 30 mmol/L [facility] Creatinine [Mass/Vol] 0.58 mg/dL Low 0.8 - 1.3 mg/dL [facility] Comment on above: Grossly icteric; may falsely decrease creatinine GFR/1.73 sq M.predicted MDRD (S/P/Bld) [Vol rate/Area] 129 mL/min/{1.73_m2} - PINF [facility] Comment on [...] Inclusion of Race in Diagnosing Kidney Disease. [place] Journal of Kidney Diseases 202;79(2):268-88.e1. 2. N Engl J Med 2020 Vol. 385 Issue 19 Pages 8650-1845 Glucose [Mass/Vol] 79 mg/dL 68 - 110 mg/dL [facility] Interpretation and review of laboratory results Abnormal [facility] Potassium [Moles/Vol] 3.6 mmol/L 3.3 - 5.3 mmol/L [facility] Sodium [Moles/Vol] 137 mmol/L 135 - 148 mmol/L [facility] Urea nitrogen [Mass/Vol] 3 mg/dL Low 8 - 22 mg/dL [facility] CBC WITH DIFFERENTIALOrdered By: Isak [...] 11.5 g/dL Low 13.9 - 16.3 g/dL [facility] Interpretation and review of laboratory results [...] [Mass/Vol] mg/dL Low 36 - 220 mg/dL [facility] Interpretation and review of laboratory results Abnormal [facility] HEPATIC FUNCTION PANELon Albumin [Mass/Vol] 3.0 g/dL Low 3.4 - 5.1 g/dL [facility] ALP [Catalytic activity/Vol] 373 U/L High [facility] ALT [Catalytic activity/Vol] 47 U/L High [facility] AST [Catalytic activity/Vol] 87 U/L High [facility] Bilirubin [Mass/Vol] 8.3 mg/dL High 0.1 - 1.5 mg/dL [facility] Bilirubin.direct [Mass/Vol] 1.50 mg/dL High 0.1 - 0.3 mg/dL [facility] Protein [Mass/Vol] 6.7 g/dL 6.2 - 8.3 g/dL [facility] LDHon 05-06-2022 LDH [Catalytic activity/Vol] 270 U/L High [facility] No Panel Informationon 05-06 Interpretation and review of laboratory results Abnormal [facility] URIC ACIDon 05-06-2022 Interpretation and review of laboratory results Normal [facility] Urate [Mass/Vol] 3.2 mg/dL 2 - 7.3 mg/dL [facility] Basic metabolic 2000 panelon 03-13-2022 Anion gap [Moles/Vol] 11 mmol/L [facility] Calcium [Mass/Vol] 8.2 mg/dL Low 8.4 - 10. 4 mg/dL [facility] Chloride [Moles/Vol] 103 mmol/L 97 - 111 mmol/L [facility] CO2 [Moles/Vol] 25 mmol/L 21 - 30 mmol/L [facility] Creatinine [Mass/Vol] 0.51 mg/dL Low 0.80 - 1.30 mg/dL [facility] Comment on above: Grossly icteric; may falsely decrease creatinine GFR/1.73 sq M.predicted MDRD (S/P/Bld) [Vol rate/Area] 134 mL/min/{1.73_m2} >=60 mL/min/1.73sqm [facility] Comment on above: 2020 CKD EPI [...] Inclusion of Race in Diagnosing Kidney Disease. [place] Journal of Kidney Diseases 202;79(2):268-88.e1. 2. N Engl J Med 1 Vol. 385 Issue 19 Pages 1111-0176 Glucose [Mass/Vol] 119 mg/dL High 68 - 110 mg/dL [facility] Interpretation and review of laboratory results Abnormal [facility] Potassium [Moles/Vol] 3.6 mmol/L 3.3 - 5.3 mmol/L [facility] Sodium [Moles/Vol] 135 mmol/L 135 - 148 mmol/L [facility] Urea nitrogen [Mass/Vol] 3 mg/dL Low 8 - 22 mg/dL [facility] CBC WITH DIFFERENTIALon Basophils (Bld) [#/Vol] [...] 9.9 g/dL Low 13.9 - 16.3 g/dL [facility] Interpretation and review of laboratory results [...] 1.35 10*3/uL Low 1.50 - 8.00 K/uL [facility] Neutrophils/100 WBC (Bld) 34.2 % 31.0 - 76.0 % [facility] Platelet mean volume (Bld) [Entitic vol] 7.3 fL Low 7.5 - 11.2 fL [facility] Platelets (Bld) [#/Vol] 114 10*3/uL Low 150 - 400 K/uL [facility] RBC (Bld) [#/Vol] 2.81 10*6/uL Low [facility] WBC (Bld) [#/Vol] 4.0 10*3/uL Low 4.5 - 11.5 K/uL [facility] - [facility] and C hemistry - challengeon 03-13-2022 Albumin [Mass/Vol] 2.6 g/dL Low 3.4 - 5.1 g/dL [facility] ALP [Catalytic activity/Vol] 278 U/L High [facility] ALT [Catalytic activity/Vol] 33 U/L [facility] AST [Catalytic activity/Vol] 68 U/L High [facility] Bilirubin [Mass/Vol] 5.6 mg/dL High 0.1 - 1.5 mg/dL [facility] Bilirubin.direct [Mass/Vol] 1.20 mg/dL High 0.10 - 0.30 mg/dL [facility] LDH [Catalytic activity/Vol] 258 U/L High [facility] Protein [Mass/Vol] 6.2 g/dL 6.2 - 8.3 g/dL [facility] Urate [Mass/Vol] 3.0 mg/dL 2.0 - 7.3 mg/dL [facility] Laboratory - Hematology and Cell countson 03-13-2022 Haptoglobin [Mass/Vol] mg/dL Low 36 - 220 mg/dL [facility] No Panel Informationon 03-13 Interpretation and review of laboratory results Abnormal [facility] Interpretation and review of laboratory results Abnormal [facility] Interpretation and review of laboratory results Normal [facility] CHEMISTRYOrdered By: SYSTEM SYSTEM on 02-17-2022 Lactate [Mass/Vol] 1.8 mmol/L Normal 0.5 - 2.2 mmol/L [facility] Remisol Albumin [Mass/Vol] 2.8 g/dL Low 3.3 [...] (U) Negative (02/17/22 1:14 PM) Normal Negative [facility] UA Auto SS Ketones (U) [Mass/Vol] Negative (02/17/22 1:14 PM) Normal Negative [facility] UA Auto SS [place].plasma/Lithi um.RBC (Bld) [Mass ratio] 0-3 /HPF Normal 0-3/HPF [facility] UA Auto SS Nitrite Ql (U) Negative (02/17/22 1:14 PM) Normal Negative [facility] UA Auto SS pH (U) 7.0 *NA* (02/17/22 1:14 PM) Invalid Interpretation Code 5.0 - 9.0 [facility] UA Auto SS Protein (U) [Mass/Vol] Negative (02/17/22 1:14 PM) Normal Negative [facility] UA Auto SS Specific gravity (U) [Rel density] <=1.005 *NA* (02/17/22 1:14 PM) Invalid Interpretation Code 1.005 - 1.030 [facility] UA Auto SS UA Spec Desc Clean Catch (02/17/22 1:14 PM) Normal [facility] UA Auto SS Urobilinogen Qn (U) [id number] {Alexey'U}/dL Normal 0.0 - 1.0 EU/dL [facility] UA Auto SS WBC Auto Ql (U) Negative (02/17/22 1:14 PM) Normal Negative [facility] UA Auto SS WBC LM.HPF (Urine sed) [#/Area] 0-5 /HPF Normal 0-5/HPF [facility] UA Auto SS Basic metabolic 2000 panelon [...] Inclusion of Race in Diagnosing Kidney Disease. [place] Journal of Kidney Diseases 202;79(2):268-88.e1. 2. N Engl J Med 2020 Vol. 385 Issue 19 Pages 8521-1487 Glucose [Mass/Vol] 105 mg/dL 68 - 110 mg/dL [facility] Interpretation and [...] [facility] RBC (Bld) [#/Vol] 2.69 10*6/uL Low [facility] WBC (Bld) [#/Vol] 4.9 10*3/uL 4.5 - 11.5 K/uL [facility] HAPTOGLOBINon 02-11-2022 Haptoglobin [Mass/Vol] mg/dL Low 36 - 220 mg/dL [facility] Interpretation and review of laboratory results Abnormal [facility] LDHon 02-11-2022 LDH [Catalytic activity/Vol] 321 U/L High [facility] Laboratory - Chemistry and C hemistry - challengeon 02-11-2022 Albumin [Mass/Vol] 2.8 g/dL Low 3.4 - 5.1 g/dL [facility] ALP [Catalytic activity/Vol] 226 U/L High [facility] ALT [Catalytic activity/Vol] 77 U/L [facility] AST [Catalytic activity/Vol] 88 U/L High [facility] Bilirubin [Mass/Vol] 7.7 mg/dL High 0.1 - 1.5 mg/dL [facility] Bilirubin.direct [Mass/Vol] 1.70 mg/dL High 0.10 - 0.30 mg/dL [facility] Protein [Mass/Vol] 6.2 g/dL 6.2 - 8.3 g/dL [facility] MANUAL DIFF AND MORPHon Anisocytosis Ql (Bld) Slight [facility] Band form neutrophils/100 WBC (Bld) 5 % <=10 [facility] Bands # 0.25 K/uL High <0.01 [facility] Cells Counted [...] 1 % [facility] Nucleated RBCs 1 K/uL [facility] Polychromasia LM Ql (Bld) Slight [facility] No Panel InformationOrdered By: Ami Brock on 02-11-2022 Interpretation and review of laboratory results Abnormal [facility] No Panel Informationon 02-11 Interpretation and review of laboratory results Abnormal [facility] RETICULOCYTE COUNTOrdered By : Kennedi Fuentes on 02-11-2022 Immature reticulocytes/Total reticulocytes (Bld) 0.45 % [facility] Interpretation and review of laboratory results Abnormal [facility] Reticulocytes (Bld) [#/Vol] 0.08 10*3/uL [...] [Mass/Vol] 84 mg/dL 68 - 110 mg/dL [facility] Potassium [Moles/Vol] 3.8 mmol/L 3.3 - 5.3 [...] 9.5 10*3/uL 4.5 - 11.5 K/uL [facility] GLUCOSE, FINGERSTICK-IN OFFI CEon 01-17-2022 Glucose [Mass/Vol] 188 mg/dL High 68 - 110 mg/dL [facility] Interpretation and review of laboratory results Abnormal [facility] HAPTOGLOBINon 01-17-2022 Haptoglobin [Mass/Vol] mg/dL Low 36 - 220 mg/dL [facility] Interpretation and review of laboratory results Abnormal [facility] HEPATIC FUNCTION PANELon Albumin [Mass/Vol] 2.8 g/dL Low 3.4 - 5.1 g/dL [facility] ALP [Catalytic activity/Vol] 133 U/L [facility] ALT [Catalytic activity/Vol] 75 U/L High [facility] AST [Catalytic activity/Vol] 94 U/L High [facility] Bilirubin [Mass/Vol] 12.6 mg/dL High 0.1 - 1.5 mg/dL [facility] Bilirubin.direct [Mass/Vol] 2.40 mg/dL High 0.10 - 0.30 mg/dL [facility] Protein [Mass/Vol] 6.7 g/dL 6.2 - 8.3 g/dL [facility] LDHon 01-17-2022 LDH [Catalytic activity/Vol] 514 U/L High [facility] No Panel Informationon 01-17 Interpretation and review of laboratory results Abnormal [facility] PROTHROMBIN TIME AND INRon 0 01-17-2022 INR Coag (PPP) [Relative time] 1.97 {INR} High [facility] Interpretation and review of laboratory results Abnormal [facility] PT Coag (PPP) [Time] 22.1 s High [facility] RETICULOCYTE COUNTon 022 Immature reticulocytes/Total reticulocytes (Bld) 0.61 % High [facility] Interpretation and review of laboratory results Abnormal [facility] Reticulocytes (Bld) [#/Vol] 0.14 10*3/uL High [facility] Reticulocytes/100 RBC (Bld) 6.5 % High 0.5 - 1.5 % [facility] [...] 0.42 mg/dL Low 0.80 - 1.30 mg/dL [facility] GFR/1.73 sq M.predicted MDRD (S/P/Bld) [Vol rate/Area] 142 mL/min/{1.73_m2} >=60 mL/min/1.73sqm [facility] Glucose [Mass/Vol] 102 mg/dL 68 - 110 mg/dL [facility] Potassium [Moles/Vol] 3.7 mmol/L 3.3 - 5.3 mmol/L [facility] Sodium [Moles/Vol] 132 mmol/L Low 135 - 148 mmol/L [facility] Urea nitrogen [Mass/Vol] 9 mg/dL 8 - 22 mg/dL [facility] CBC panel Auto (Bld)on 01-16 Erythrocyte distribution width (RBC) [Ratio] 23.7 % High 11.5 - 14.5 % [facility] Hematocrit (Bld) [Volume fraction] 21.6 % Low 41.0 - 53.0 % [facility] Hemoglobin (Bld) [Mass/Vol] 7.4 g/dL Low 13.9 - 16.3 g/dL [facility] Interpretation and review of laboratory results Abnormal [facility] MCH (RBC) [Entitic mass] 38.6 pg High 26.0 - 34.0 pg [facility] MCHC (RBC) [Mass/Vol] 34.4 g/dL 32.0 - 35.9 g/dL [facility] MCV (RBC) [Entitic vol] 112 fL High 80 - 100 fL [facility] Platelet mean volume (Bld) [Entitic vol] 9.3 fL 7.5 - 11.2 fL [facility] Platelets (Bld) [#/Vol] 94 10*3/uL Low 150 - 400 K/uL [facility] RBC (Bld) [#/Vol] 1.92 10*6/uL Low [facility] WBC (Bld) [#/Vol] 9.2 10*3/uL 4.5 - 11.5 K/uL [facility] GLUCOSE, FINGERSTICK-IN OFFI CEon 01-16-2022 Glucose [Mass/Vol] 145 mg/dL High 68 - 110 mg/dL [facility] Interpretation and review of laboratory results Abnormal [facility] Glucose [Mass/Vol] 247 mg/dL High 68 - 110 mg/dL [facility] Interpretation and review of laboratory results Abnormal [facility] Glucose [Mass/Vol] 132 mg/dL High 68 - 110 mg/dL [facility] Interpretation and review of laboratory results Abnormal [facility] Glucose [Mass/Vol] 90 mg/dL 68 - 110 mg/dL [facility] Interpretation and review of laboratory results Normal [facility] HAPTOGLOBINon 01-16-2022 Haptoglobin [Mass/Vol] mg/dL Low 36 - 220 mg/dL [facility] Interpretation and review of laboratory results Abnormal [facility] HEPATIC FUNCTION PANELon Albumin [Mass/Vol] 2.7 g/dL Low 3.4 - 5.1 g/dL [facility] ALP [Catalytic activity/Vol] 124 U/L [facility] ALT [Catalytic activity/Vol] 69 U/L High [facility] AST [Catalytic activity/Vol] 93 U/L High [facility] Bilirubin [Mass/Vol] 12.7 mg/dL High 0.1 - 1.5 mg/dL [facility] Bilirubin.direct [Mass/Vol] 2.30 mg/dL High 0.10 - 0.30 mg/dL [facility] Protein [Mass/Vol] 6.3 g/dL 6.2 - 8.3 g/dL [facility] LDHon 01-16-2022 LDH [Catalytic activity/Vol] 476 U/L High [facility] No Panel Informationon 01-16 Interpretation and review of laboratory results Abnormal [facility] PROTHROMBIN TIME AND INRon 0 01-16-2022 INR Coag (PPP) [Relative time] 2.08 {INR} High [facility] Interpretation and review of laboratory results Abnormal [facility] PT Coag (PPP) [Time] 23.3 s High [facility] Basic metabolic 2000 panelon 01-15-2022 Anion gap [Moles/Vol] 14 mmol/L [facility] Calcium [Mass/Vol] 7.9 mg/dL Low 8.4 - 10. 4 mg/dL [facility] Chloride [Moles/Vol] 97 mmol/L 97 - 111 mmol/L [facility] CO2 [Moles/Vol] 25 mmol/L 21 - 30 mmol/L [facility] Creatinine [Mass/Vol] 0.42 mg/dL Low 0.80 - 1.30 mg/dL [facility] GFR/1.73 sq M.predicted MDRD (S/P/Bld) [Vol rate/Area] 142 mL/min/{1.73_m2} >=60 mL/min/1.73sqm [facility] Glucose [Mass/Vol] 112 mg/dL High 68 - 110 mg/dL [facility] Potassium [Moles/Vol] 3.5 mmol/L 3.3 - 5.3 [...] 7.3 g/dL Low 13.9 - 16.3 g/dL [facility] Interpretation and review of laboratory results [...] 8.9 10*3/uL 4.5 - 11.5 K/uL [facility] GLUCOSE, FINGERSTICK-IN OFFI ESTRELLITAon 01-15-2022 Glucose [Mass/Vol] 149 mg/dL High 68 - 110 mg/dL [facility] Interpretation and review of laboratory results Abnormal [facility] Glucose [Mass/Vol] 175 mg/dL High 68 - 110 mg/dL [facility] Interpretation and review of laboratory results Abnormal [facility] Glucose [Mass/Vol] 129 mg/dL High 68 - 110 mg/dL [facility] Interpretation and review of laboratory results Abnormal [facility] Glucose [Mass/Vol] 148 mg/dL High 68 - 110 mg/dL [facility] Interpretation and review of laboratory results Abnormal [facility] HAPTOGLOBINon 01-15-2022 Haptoglobin [Mass/Vol] mg/dL Low 36 - 220 mg/dL [facility] Interpretation and review of laboratory results Abnormal [facility] HEPATIC FUNCTION PANELon Albumin [Mass/Vol] 2.6 g/dL Low 3.4 - 5.1 g/dL [facility] ALP [Catalytic activity/Vol] 182 U/L [facility] ALT [Catalytic activity/Vol] 65 U/L High [facility] AST [Catalytic activity/Vol] 104 U/L High [facility] Bilirubin [Mass/Vol] 10.8 mg/dL High 0.1 - 1.5 mg/dL [facility] Bilirubin.direct [Mass/Vol] 2.10 mg/dL High 0.10 - 0.30 mg/dL [facility] Protein [Mass/Vol] 6.5 g/dL 6.2 - 8.3 g/dL [facility] LDHon 01-15-2022 LDH [Catalytic activity/Vol] 481 U/L High [facility] No Panel Informationon 01-15 Interpretation and review of laboratory results Abnormal [facility] PROTHROMBIN TIME AND INRon 0 01-15-2022 INR Coag (PPP) [Relative time] 1.89 {INR} High [facility] Interpretation and review of laboratory results Abnormal [facility] PT Coag (PPP) [Time] 21.2 s High [facility] Basic metabolic 2000 panelon 01-14-2022 Anion gap [Moles/Vol] 11 mmol/L [facility] Calcium [Mass/Vol] 8.2 mg/dL Low 8.4 - 10. 4 mg/dL [facility] Chloride [Moles/Vol] 101 mmol/L 97 - 111 mmol/L [facility] CO2 [Moles/Vol] 27 mmol/L 21 - 30 mmol/L [facility] Creatinine [Mass/Vol] 0.44 mg/dL Low 0.80 - 1.30 mg/dL [facility] GFR/1.73 sq M.predicted MDRD (S/P/Bld) [Vol rate/Area] 140 mL/min/{1.73_m2} >=60 mL/min/1.73sqm [facility] Glucose [Mass/Vol] 136 mg/dL High 68 - 110 mg/dL [facility] Potassium [Moles/Vol] 3.4 mmol/L 3.3 - [...] 139 mg/dL High 68 - 110 mg/dL [facility] Interpretation and review of laboratory results Abnormal [facility] Glucose [Mass/Vol] 203 mg/dL High 68 - 110 mg/dL [facility] Interpretation and review of laboratory results Abnormal [facility] Glucose [Mass/Vol] 143 mg/dL High 68 - 110 mg/dL [facility] Interpretation and review of laboratory results Abnormal [facility] Glucose [Mass/Vol] 154 mg/dL High 68 - 110 mg/dL [facility] Interpretation and review of laboratory results Abnormal [facility] HAPTOGLOBINon 01-14-2022 Haptoglobin [Mass/Vol] mg/dL Low 36 - 220 mg/dL [facility] Interpretation and review of laboratory results Abnormal [facility] HEPATIC FUNCTION PANELon Albumin [Mass/Vol] 2.6 g/dL Low 3.4 - 5.1 g/dL [facility] ALP [Catalytic activity/Vol] 177 U/L [facility] ALT [Catalytic activity/Vol] 62 U/L High [facility] AST [Catalytic activity/Vol] 104 U/L High [facility] Bilirubin [Mass/Vol] 11.5 mg/dL High 0.1 - 1.5 mg/dL [facility] Bilirubin.direct [Mass/Vol] 2.20 mg/dL High 0.10 - 0.30 mg/dL [facility] Protein [Mass/Vol] 6.4 g/dL 6.2 - 8.3 g/dL [facility] LDHon 01-14-2022 LDH [Catalytic activity/Vol] 473 U/L High [facility] Laboratory - Microbiology an d Antimicrobial susceptibilityon 01-14-2022 Bacteria identified Cx Nom (Bld) No Growth [facility] MANUAL DIFF AND MORPHon 01-05 Anisocytosis Ql (Bld) Marked [facility] [place] cells LM Ql (Bld) Few [facility] Cells Counted Total (Bld) [#] 100 {cells} [facility] Eosinophils (Bld) [#/Vol] 0.15 10*3/uL 0.00 - 0.70 K/uL [facility] Eosinophils/100 WBC (Bld) 2.0 % 0.1 [...] Interpretation and review of laboratory results [facility] Interpretation and review of laboratory results Abnormal [facility] No Panel InformationOrdered By: Erika Martin on 01-14-2022 Interpretation and review of laboratory results Abnormal [facility] PROTHROMBIN TIME AND INRon 0 01-14-2022 INR Coag (PPP) [Relative time] 1.94 {INR} High [facility] Interpretation and review of laboratory results Abnormal [facility] PT Coag (PPP) [Time] 21.8 s High [facility] Basic metabolic 2000 panelon 01-13-2022 Anion [...] 130 mg/dL High 68 - 110 mg/dL [facility] Potassium [Moles/Vol] 3.4 mmol/L 3.3 - 5.3 mmol/L [facility] Sodium [Moles/Vol] 135 mmol/L 135 - 148 mmol/L [facility] Urea nitrogen [Mass/Vol] 6 mg/dL Low 8 - 22 mg/dL [facility] CBC WITH DIFFERENTIALon Erythrocyte distribution width [...] Interpretation and review of laboratory results Abnormal [facility] FACTOR VIII ASSAYOrdered By: Jozef Gibbons on 01-13-2022 Factor VIII Assay 356 % High 55 - 180 % [facility] Interpretation and review of laboratory results Abnormal [facility] GLUCOSE, FINGERSTICK-IN OFFI CEon 01-13-2022 Glucose [Mass/Vol] 185 mg/dL High 68 - 110 mg/dL [facility] Glucose [Mass/Vol] 226 mg/dL High 68 - 110 mg/dL [facility] Glucose [Mass/Vol] 152 mg/dL High 68 - 110 mg/dL [facility] Interpretation and review of laboratory results Abnormal [facility] Glucose [Mass/Vol] 140 mg/dL High 68 - 110 mg/dL [facility] Interpretation and review of laboratory results Abnormal [facility] HAPTOGLOBINon 01-13-2022 Haptoglobin [Mass/Vol] mg/dL Low 36 - 220 mg/dL [facility] Interpretation and review of laboratory results Abnormal [facility] HEPATIC FUNCTION PANELon Albumin [Mass/Vol] 2.6 g/dL Low 3.4 - 5.1 g/dL [facility] ALP [Catalytic activity/Vol] 169 U/L [facility] ALT [Catalytic activity/Vol] 63 U/L High [facility] AST [Catalytic activity/Vol] 124 U/L High [facility] Bilirubin [Mass/Vol] 11.4 mg/dL High 0.1 - 1.5 mg/dL [facility] Bilirubin.direct [Mass/Vol] 2.10 mg/dL High 0.10 - 0.30 mg/dL [facility] Protein [Mass/Vol] 6.2 g/dL 6.2 - 8.3 g/dL [facility] HEPATITIS C QUANT BY PCROrde red By: Gera Meza on 01-13-2022 HCV RNA panel ANGIE+probe Not detected Not Detected [facility] LDHon 01-13-2022 LDH [Catalytic activity/Vol] 497 U/L High [facility] MANUAL DIFF AND MORPHon Anisocytosis Ql (Bld) Marked [facility] Atypical Lymph # 0.15 K/uL [facility] Band form neutrophils/100 WBC (Bld) 8 % <=10 [facility] Bands # 0.58 K/uL High <0.01 [facility] [place] cells LM Ql (Bld) Few [facility] Cells [...] PT Coag (PPP) [Time] 23.0 s High [facility] Basic metabolic 2000 panelon 01-12-2022 [...] 147 mg/dL High 68 - 110 mg/dL [facility] Interpretation and review of laboratory results Abnormal [...] 140 mg/dL High 68 - 110 mg/dL [facility] Interpretation and review of laboratory results Abnormal [facility] Glucose [Mass/Vol] 157 mg/dL High 68 - 110 mg/dL [facility] Interpretation and review of laboratory results Abnormal [facility] HAPTOGLOBINon 01-12-2022 Haptoglobin [Mass/Vol] mg/dL Low 36 - 220 mg/dL [facility] Interpretation and review of laboratory results Abnormal [facility] HEPATIC FUNCTION PANELon Albumin [Mass/Vol] 2.6 g/dL Low 3.4 - 5.1 g/dL [facility] ALP [Catalytic activity/Vol] 148 U/L [facility] ALT [Catalytic activity/Vol] 61 U/L High [facility] AST [Catalytic activity/Vol] 131 U/L High [facility] Bilirubin [Mass/Vol] 11.1 mg/dL High 0.1 - 1.5 mg/dL [facility] Bilirubin.direct [Mass/Vol] 2.10 mg/dL High 0.10 - 0.30 mg/dL [facility] Protein [Mass/Vol] 6.4 g/dL 6.2 - 8.3 g/dL [facility] LDHon 01-12-2022 LDH [Catalytic activity/Vol] 458 U/L [...] Slight [facility] Anisocytosis Ql (Bld) Marked [facility] [place] cells LM Ql (Bld) Few [facility] Cells [...] 149 mg/dL High 68 - 110 mg/dL [facility] Potassium [Moles/Vol] 3.4 mmol/L 3.3 - [...] (Bld) 73.3 % 31.0 - 76.0 % [facility] Platelet mean volume (Bld) [Entitic vol] 8.4 fL 7.5 - 11.2 fL [facility] Platelets (Bld) [#/Vol] 62 10*3/uL Low 150 - 400 K/uL [facility] RBC (Bld) [#/Vol] 1.54 10*6/uL Low [facility] WBC (Bld) [#/Vol] 7.3 10*3/uL 4.5 - 11.5 K/uL [facility] GLUCOSE, FINGERSTICK-IN OFFI CEon 01-11-2022 Glucose [Mass/Vol] 167 mg/dL High 68 - 110 mg/dL [facility] Interpretation and review of laboratory results Abnormal [facility] HAPTOGLOBINon 01-11-2022 Haptoglobin [Mass/Vol] mg/dL Low 36 - 220 mg/dL [facility] Interpretation and review of laboratory results Abnormal [facility] HEPATIC FUNCTION PANELon Albumin [Mass/Vol] 2.6 g/dL Low 3.4 - 5.1 g/dL [facility] ALP [Catalytic activity/Vol] 95 U/L [facility] ALT [Catalytic activity/Vol] 57 U/L High [facility] AST [Catalytic activity/Vol] 143 U/L High [facility] Bilirubin [Mass/Vol] 11.4 mg/dL High 0.1 - 1.5 mg/dL [facility] Bilirubin.direct [Mass/Vol] 2.20 mg/dL High 0.10 - 0.30 mg/dL [facility] Protein [Mass/Vol] 5.7 g/dL Low 6.2 - 8.3 g/dL [facility] LDHon 01-11-2022 LDH [Catalytic activity/Vol] 428 U/L High [facility] Laboratory - Blood bankon ABO and Rh group Nom (Bld) Blood group A Rh(D) positive [facility] MAGNESIUMon 01-11-2022 Interpretation and review of laboratory results Normal [facility] Magnesium [Mass/Vol] 2.0 mg/dL 1.6 - 2.8 mg/dL [facility] MANUAL DIFF AND MORPHon 05-0 Band form neutrophils/100 WBC (Bld) 3 % <=10 [facility] Bands # 0.22 K/uL High <0.01 [facility] [place] cells LM Ql (Bld) Few [facility] Cells [...] Few [facility] Anisocytosis Ql (Bld) Marked [facility] [place] cells LM Ql (Bld) Few [facility] Cells [...] Abnormal [facility] No Panel Informationon 01-11 [facility] Interpretation and review of laboratory results Abnormal [facility] PROTHROMBIN TIME AND INRon 0 01-11-2022 INR Coag (PPP) [Relative time] 2.16 {INR} High [facility] Interpretation and review of laboratory results Abnormal [facility] PT Coag (PPP) [Time] 24.2 s High [facility] TYPE AND SCREENon 01-11-2022 ABO and Rh group Nom (Bld) Blood group A Rh(D) positive [facility] ABO and Rh group Nom (Bld) No Previous Results [facility] Blood group antibody screen Ql Negative [facility] Basic metabolic 2000 panelon 01-10-2022 Anion [...] 165 mg/dL High 68 - 110 mg/dL [facility] Interpretation and review of laboratory results Abnormal [...] [Mass/Vol] mg/dL Low 36 - 220 mg/dL [facility] Interpretation and review of laboratory results Abnormal [facility] HEPATIC FUNCTION PANELon Albumin [Mass/Vol] 2.7 g/dL Low 3.4 - 5.1 g/dL [facility] ALP [Catalytic activity/Vol] 87 U/L [facility] ALT [Catalytic activity/Vol] 54 U/L High [facility] AST [Catalytic activity/Vol] 147 U/L High [facility] Bilirubin [Mass/Vol] 11.1 mg/dL High 0.1 - 1.5 mg/dL [facility] Bilirubin.direct [Mass/Vol] 2.60 mg/dL High 0.10 - 0.30 mg/dL [facility] Protein [Mass/Vol] 6.0 g/dL Low 6.2 - 8.3 g/dL [facility] LDHOrdered By: Jarrod cruz on 01-10-2022 Interpretation and review of laboratory results Abnormal [facility] LDH [Catalytic activity/Vol] 378 U/L High [facility] Laboratory - Microbiology an d Antimicrobial susceptibilityon 01-10-2022 RSV RNA ANGIE+probe Ql (Unsp spec) Negative Negative [facility] Laboratory - Specimen inform ationon 01-10-2022 Specimen source Nom (Unsp spec) Negative Negative [facility] MAGNESIUMon 01-10-2022 Interpretation and review of laboratory results Normal [facility] Magnesium [Mass/Vol] 1.7 mg/dL 1.6 - 2.8 mg/dL [facility] MANUAL DIFF AND MORPHon Acanthocytes LM [...] [facility] Target cells LM Ql (Bld) Few [facility] No Panel Informationon 01-10 [facility] Interpretation and review of laboratory results Abnormal [facility] No Panel InformationOrdered By: Meka Morales on 01-10-2022 [facility] PARTIAL THROMBOPLASTIN TIMEo n 01-10-2022 aPTT Coag (Bld) [Time] 29 s [facility] Interpretation and review of laboratory results Normal [facility] PROTHROMBIN TIME AND INRon 0 01-10-2022 INR Coag (PPP) [Relative time] 1.79 {INR} High [facility] Interpretation and review of laboratory results Abnormal [facility] PT Coag (PPP) [Time] 20.1 s High [facility] RED BLOOD CELL COMPONENTon 0 01-10-2022 BB Order Item Product status info to follow [facility] RESPIRATORY VIRUS PANEL, PCR on 01-10-2022 Adenovirus DNA ANGIE+probe Ql (Unsp spec) Negative Negative [facility] C. pneumoniae DNA ANGIE+probe Ql (Unsp spec) Negative Negative [facility] FLUAV H1 RNA ANGIE+probe Ql (Unsp spec) Negative Negative [facility] FLUAV H3 RNA ANGIE+probe Ql (Unsp spec) Negative Negative [facility] FLUAV RNA ANGIE+probe Ql (Unsp spec) Negative Negative [facility] FLUBV RNA ANGIE+probe Ql (Unsp spec) Negative Negative [facility] HCoV HKU1 RNA ANGIE+probe Ql (Unsp spec) Negative Negative [facility] HCoV NL63 RNA ANGIE+probe Ql (Unsp spec) Negative Negative [facility] hMPV RNA ANGIE+probe Ql (Unsp spec) Negative Negative [facility] Interpretation and review of laboratory results Normal [facility] M. pneumoniae DNA ANGIE+probe Ql (Unsp spec) Negative Negative [facility] Parainfluenza virus 1 RNA ANGIE+probe Ql (Unsp spec) Negative Negative [facility] Parainfluenza virus 2 RNA ANGIE+probe Ql (Unsp spec) Negative Negative [facility] Parainfluenza virus 3 RNA ANGIE+probe Ql (Unsp spec) Negative Negative [facility] Parainfluenza virus 4 RNA ANGIE+probe Ql (Unsp spec) Negative Negative [facility] Rhinovirus RNA ANGIE+probe Nom (Unsp spec) Negative Negative [facility] US HEP PORT SPLEN VEIN + DOP PLERon 01-10-2022 RADIOLOGY [facility] Radiology Study observation (narrative) [facility] US SPLEENon 01-10-2022 RADIOLOGY [facility] Radiology Study observation (narrative) [facility] SPLEENOrdered By: Enrique Basurto on 01-10-2022 [facility] Work Phone: AMMONIAon 01-09-2022 Ammonia (P) [Moles/Vol] 74 umol/L High 11 - 35 umol/L [facility] Interpretation and review of laboratory results Abnormal [facility] AUTOIMMUNE MULTIPLEX PANELon 01-09-2022 Interpretation and review of laboratory results Normal [facility] Nuclear Ab IA Ql (S) Negative Negative [facility] Basic metabolic 2000 panelon 01-09-2022 [...] 142 mg/dL High 68 - 110 mg/dL [facility] Potassium [Moles/Vol] 4.0 mmol/L 3.3 - 5.3 mmol/L [facility] Sodium [Moles/Vol] 133 mmol/L Low 135 - 148 mmol/L [facility] Urea nitrogen [Mass/Vol] 7 mg/dL Low 8 - 22 mg/dL [facility] CBC WITH DIFFERENTIALOrdered By: Norris Billings [...] [facility] HEPATIC FUNCTION PANELon Albumin [Mass/Vol] 2.7 g/dL Low 3.4 - 5.1 g/dL [facility] ALP [Catalytic activity/Vol] 92 U/L [facility] ALT [Catalytic activity/Vol] 47 U/L High [facility] AST [Catalytic activity/Vol] 124 U/L High [facility] Bilirubin [Mass/Vol] 11.2 mg/dL High 0.1 - 1.5 mg/dL [facility] Bilirubin.direct [Mass/Vol] 2.50 mg/dL High 0.10 - 0.30 mg/dL [facility] Protein [Mass/Vol] 6.0 g/dL Low 6.2 - 8.3 g/dL [facility] HIV 1 and 2 Ab and HIV 1 p24 Ag panel IAon 01-09-2022 HIV 1+2 Ab+HIV1 p24 Ag IA Ql Non-Reactive Non-Reactive [facility] Interpretation and review of laboratory results Normal [facility] Lipid 1996 panelon 2 Cholesterol [...] Few [facility] Anisocytosis Ql (Bld) Marked [facility] [place] cells LM Ql (Bld) Few [facility] Cells Counted Total (Bld) [#] [facility] Macrocytes Ql (Bld) Slight [facility] Ovalocytes LM Ql (Bld) Many [facility] Polychromasia LM Ql (Bld) Slight [facility] RBC.hypochromic/100 RBC Auto (Bld) Slight [facility] Schistocytes LM Ql (Bld) Few [facility] Target cells LM Ql (Bld) Few [facility] No Panel InformationOrdered By: Norris Billings on 01-09-2022 [facility] No Panel InformationOrdered By: Mi Alcazar on 01-09-2022 [facility] No Panel Informationon 01-09 Interpretation and review of laboratory results Abnormal [facility] PROTHROMBIN TIME AND INRon 0 01-09-2022 INR Coag (PPP) [Relative time] 1.94 {INR} High [facility] Interpretation and review of laboratory results Abnormal [facility] PT Coag (PPP) [Time] 21.8 s High [facility] RED BLOOD CELL COMPONENTon 0 01-09-2022 BB Order Item Product status info to follow [facility] THYROXINE (T4), FREEon 01-09 Free T4 [Mass/Vol] 0.88 ng/dL 0.45 - 1. 80 ng/dL [facility] Interpretation and review of laboratory results Normal [facility] XR ABDOMEN 1 VIEW APon 01-09 RADIOLOGY [facility] Radiology Study observation (narrative) [facility] XR ABDOMEN 1 VIEW APOrdered By: Ulysses Omalley on 01-09-2022 [facility] Work Phone: ACETAMINOPHENon 01-08-2022 Acetaminophen [Mass/Vol] [...] antiglobulin test.complement specific reagent Ql (RBC) Negative [facility] Direct antiglobulin test.IgG specific reagent (RBC) [Interp] Positive [facility] Direct antiglobulin test.poly specific reagent Ql (RBC) Positive [facility] EKG 12 LEAD - PERFORMon Diagnosis [facility] P wave [facility] 46 degrees [facility] P-R Interval 132 ms [facility] Q-T interval 422 ms [facility] Q-T interval corrected 474 ms [facility] QRS axis 44 degrees [facility] QRS duration 86 ms [facility] T wave axis 22 degrees [facility] FERRITINon 01-08-2022 Ferritin [Mass/Vol] 829.1 ng/mL High 11.5 - 3 00.0 ng/mL [facility] Interpretation and review of laboratory results Abnormal [facility] FOLIC ACIDon 01-08-2022 Folate [Mass/Vol] 13.9 ng/mL 5.9 - 24.7 ng/mL [facility] Interpretation and review of laboratory results Normal [facility] GLUCOSE, FINGERSTICK-IN OFFI CEon 01-08-2022 Glucose [Mass/Vol] 94 mg/dL 68 - 110 mg/dL [facility] Interpretation and review of laboratory results Normal [facility] HAPTOGLOBINon 01-08-2022 Haptoglobin [Mass/Vol] mg/dL Low 36 - 220 mg/dL [facility] Interpretation and review of laboratory results Abnormal [facility] HCV Ab IA Qn (S)on 2 HCV Ab Ql (S) Non-Reactive Nonreactive [facility] Interpretation and review of laboratory results Normal [facility] HEPATIC FUNCTION PANELon Albumin [Mass/Vol] 2.9 g/dL Low 3.4 - 5.1 g/dL [facility] ALP [Catalytic activity/Vol] 121 U/L [facility] ALT [Catalytic activity/Vol] 50 U/L High [facility] AST [Catalytic activity/Vol] 129 U/L High [facility] Bilirubin [Mass/Vol] 11.1 mg/dL High 0.1 - 1.5 mg/dL [facility] Bilirubin.direct [Mass/Vol] 2.40 mg/dL High 0.10 - 0.30 mg/dL [facility] Protein [Mass/Vol] 6.4 g/dL 6.2 - 8.3 g/dL [facility] HEPATITIS A IGM ANTIBODYon 0 01-08-2022 HAV IgM IA Ql Non-Reactive Nonreactive [facility] Interpretation and review of laboratory results Normal [facility] HEPATITIS A TOTAL ANTIBODYon 01-08-2022 HAV Ab IA Ql (S) Reactive Abnormal Nonreactive [facility] Interpretation and review of laboratory results Abnormal [facility] HEPATITIS B CORE ANTIBODYon 01-08-2022 HBV core Ab Ql (S) Non-Reactive Nonreactive [facility] Interpretation and review of laboratory results Normal [facility] HEPATITIS B SURFACE ANTIBODY on 01-08-2022 HBV surface Ab IA Qn m[IU]/mL mIU/mL [facility] HEPATITIS B SURFACE ANTIGENo n 01-08-2022 HBV surface Ag Ql (S) Non-Reactive Non-Reactive [facility] Interpretation and review of laboratory results Normal [facility] IRON AND TIBCon 01-08-2022 Interpretation and review of laboratory results Abnormal [facility] Iron [Mass/Vol] 145 ug/dL 45 - 160 ug/dL [facility] Iron binding capacity [Mass/Vol] 214 ug/mL Low 250 - 410 ug/mL [facility] Iron saturation [Mass fraction] 68 % High 20 - 55 % [facility] Transferrin [Mass/Vol] 153 mg/dL Low 210 - 375 mg/dL [facility] LACTIC ACIDOrdered By: Arnol kowalski on 01-08-2022 Interpretation and review of laboratory results Normal [facility] Lactate [Moles/Vol] 1.1 mmol/L 0.5 - 2. 0 mmol/L [facility] LDHOrdered By: Yaritza staton on 01-08-2022 Interpretation and review of laboratory results Abnormal [facility] LDH [Catalytic activity/Vol] 369 U/L [facility] MAGNESIUMon 01-08-2022 Interpretation and review of laboratory results Normal [facility] Magnesium [Mass/Vol] 1.7 mg/dL 1.6 - 2.8 mg/dL [facility] MANUAL DIFF AND MORPHon 05- Anisocytosis Ql (Bld) Marked [facility] Cells Counted Total (Bld) [#] [facility] Macrocytes Ql (Bld) Slight [facility] Polychromasia LM Ql (Bld) Slight [facility] Acanthocytes LM Ql (Bld) Few [facility] [place] cells LM Ql (Bld) Few [facility] Cells Counted Total (Bld) [#] [facility] Macrocytes Ql (Bld) Slight [facility] Polychromasia LM Ql (Bld) Slight [facility] No Panel InformationOrdered By: Fiorella Cochran on 01-08-2022 [facility] No Panel Informationon 01-08 Interpretation and review of laboratory results Abnormal [facility]Y [facility] No Panel InformationOrdered By: Rafy Carr on 01-08-2022 [facility] No Panel InformationOrdered By: Crow Werner on 01-08-2022 [facility] Work Phone: PROTHROMBIN TIME AND INRon 0 01-08-2022 INR Coag (PPP) [Relative time] 1.78 {INR} High [facility] Interpretation and review of laboratory results Abnormal [facility] PT Coag (PPP) [Time] 20.0 s High [facility] RETICULOCYTE COUNTOrdered By : Deborah Che on 01-08-2022 Immature reticulocytes/Total reticulocytes (Bld) 0.56 % High [facility] Interpretation and review of laboratory results Abnormal [facility] Reticulocytes (Bld) [#/Vol] 0.10 10*3/uL High [facility] Reticulocytes/100 RBC (Bld) 5.2 % High 0.5 - 1.5 % [facility] TSHon 01-08-2022 Interpretation and review of laboratory results Abnormal [facility] TSH Qn 6.627 m[IU]/L High [facility] US ASCITES SURVEY 4 QUADRANT Son 01-08-2022 [facility]OLOGY [facility] Radiology Study observation (narrative) [facility] ASCITES SURVEY 4 QUADRANT SOrdered By: Loreta Rizzo on 01-08-2022 [facility] Work Phone: US LIVER/GALL BLADDER/PANCRE ASon 01-08-2022 [facility] Rad[facility] Study observation (narrative) [facility] VITAMIN B12 (CYANOCOBALAMIN) on 01-08-2022 Cobalamin (Vitamin B12) [Moles/Vol] 1299 pg/mL >300 [facility] Interpretation and review of laboratory results [facility] XR ELBOW LEFT MINIMUM 3 VIEW Son 01-08-2022 Radiology Study observation (narrative) [facility] XR HUMERUS LEFTon 01-08-2022 Radiology Study observation (narrative) [facility] XR ORBITSon 01-08-2022 RADIOLOGY [facility] Radiology Study observation (narrative) [facility] XR ORBITSOrdered By: Philipp Salgado on 01-08-2022 [facility] Work Phone: BLOOD BANKOrdered By: Destiny [...] increase of schistocytes. No hypersegmented granulocytes seen.[id number] [id number] Invalid Interpretation Code [facility] HemeManSS URINALYSISOrdered By: [...] Interpretation Code Negative [facility] UA Auto SS [place].plasma/Lithi um.RBC (Bld) [Mass ratio] 0-3 /HPF Normal 0-3/HPF [facility] UA Auto SS Mucus Ql (Urine sed) Trace (01/07/22 12:30 PM) Normal [facility] UA Auto SS Nitrite Ql (U) Negative (01/07/22 12:30 PM) Normal Negative [facility] UA Auto SS pH (U) 7.5 *NA* (01/07/22 12:30 PM) Invalid Interpretation Code 5.0 - 9.0 [facility] UA Auto SS Protein (U) [Mass/Vol] Negative (01/07/22 12:30 PM) Normal Negative [facility] UA Auto SS Specific gravity (U) [Rel density] 1.010 *NA* (01/07/22 12:30 PM) Invalid Interpretation Code 1.005 - 1.030 [facility] UA Auto SS UA Spec Desc Clean Catch (01/07/22 12:30 PM) Normal [facility] UA Auto SS Urobilinogen Qn (U) [id number] {Alexey'U}/dL Invalid Interpretation Code 0.0 - 1.0 EU/dL [facility] UA Auto SS WBC Auto Ql (U) Negative (01/07/22 12:30 PM) Normal Negative [facility] UA Auto SS WBC LM.HPF (Urine sed) [#/Area] 0-5 /HPF Normal 0-5/HPF [facility] UA Auto SS Vital Signs Date Time Vital Sign Value Performing Clinician Facility 01-12-2025 08:39-0400 Diastolic blood pressure 69 mm[Hg] Evelio Carr [facility] 01-12-2025 08:39-0400 Heart rate 65 /min Evelio Carr [facility] 01-12-2025 08:39-0400 Mean blood pressure 86 mm[Hg] Evelio Carr [facility] 01-12-2025 08:39-0400 Respiratory rate 16 /min Evelio Carr [facility] 01-12-2025 08:39-0400 Systolic blood pressure 119 mm[Hg] Evelio Carr [facility] 01-03-2025 11:54-0400 Heart rate 58 /min Evelio Carr [facility] 01-03-2025 11:54-0400 SaO2% (BldA) [Mass fraction] 100 % Evelio Carr [facility] 01-03-2025 11:54-0400 Diastolic blood pressure 80 mm[Hg] Evelio Carr [facility] 01-03-2025 11:54-0400 Mean blood pressure 105 mm[Hg] Evelio Carr [facility] 01-03-2025 11:54-0400 Systolic blood pressure 155 mm[Hg] Evelio Carr [facility] 01-03-2025 11:43-0400 Diastolic blood pressure 82 mm[Hg] Evelio Carr [facility] 01-03-2025 11:43-0400 Heart rate 59 /min Evelio Carr [facility] 01-03-2025 11:43-0400 SaO2% (BldA) [Mass fraction] 97 % Evelio Carr [facility] 01-03-2025 11:43-0400 Systolic blood pressure 148 mm[Hg] Evelio Carr [facility] 01-03-2025 10:52-0400 Heart rate 62 /min Evelio Carr [facility] 01-03-2025 10:52-0400 SaO2% (BldA) [Mass fraction] 100 % Evelio Carr [facility] 01-03-2025 10:52-0400 Body temperature 97.88 [degF] Evelio Carr [facility] 01-03-2025 10:50-0400 Diastolic blood pressure 83 mm[Hg] Evelio Carr [facility] 01-03-2025 10:50-0400 Mean blood pressure 100 mm[Hg] Fraser Bruno [facility] 01-03-2025 10:50-0400 Systolic blood pressure 136 mm[Hg] Evelio Carr [facility] 01-03-2025 10:49-0400 Respiratory rate 14 /min Evelio aCrr [facility] 12-20-2024 08:21-0400 Diastolic blood pressure 87 mm[Hg] Sadieree Loco [facility] 12-20-2024 08:21-0400 Heart rate 69 /min Sadieree Loco [facility] 12-20-2024 08:21-0400 Mean blood pressure 106 mm[Hg] Sadieree Loco [facility] 12-20-2024 08:21-0400 Respiratory rate 14 /min Sadieree Loco [facility] 12-20-2024 08:21-0400 Systolic blood pressure 144 mm[Hg] Sadieree Loco [facility] 11-21-2024 08:32-0400 Diastolic blood pressure 79 mm[Hg] Sadieree Loco [facility] 11-21-2024 08:32-0400 Heart rate 68 /min Sadieree Loco [facility] 11-21-2024 08:32-0400 Mean blood pressure 101 mm[Hg] Sadieree Loco [facility] 11-21-2024 08:32-0400 Respiratory rate 16 /min Sadieree Loco [facility] 11-21-2024 08:32-0400 Systolic blood pressure 146 mm[Hg] Sadieree Loco [facility] 11-18-2024 09:24-0400 Diastolic blood pressure 72 mm[Hg] Martin Sarmini [facility] 11-18-2024 09:24-0400 Heart rate 65 /min Martin Sarmini [facility] 11-18-2024 09:24-0400 Mean blood pressure 91 mm[Hg] Martin Sarmini [facility] 11-18-2024 09:24-0400 Respiratory rate 20 /min Martin Sarmini [facility] 11-18-2024 09:24-0400 SaO2% (BldA) [Mass fraction] 100 % Martin Sarmini [facility] 11-18-2024 09:24-0400 Systolic blood pressure 128 mm[Hg] Martin Sarmini [facility] 11-18-2024 09:13-0400 Diastolic blood pressure 62 mm[Hg] Martin Sarmini [facility] 11-18-2024 09:13-0400 Heart rate 63 /min Martin Sarmini [facility] 11-18-2024 09:13-0400 Mean blood pressure 79 mm[Hg] Martin Sarmini [facility] 11-18-2024 09:13-0400 Respiratory rate 13 /min Martin Sarmini [facility] 11-18-2024 09:13-0400 SaO2% (BldA) [Mass fraction] 100 % Martin Sarmini [facility] 11-18-2024 09:13-0400 Systolic blood pressure 113 mm[Hg] Martin Sarmini [facility] 11-18-2024 09:07-0400 SaO2% (BldA) [Mass fraction] 98 % Martin Sarmini [facility] 11-18-2024 09:04-0400 Blood Pressure Location Martin Sarmini [facility] 11-18-2024 09:04-0400 Body temperature 97.7 [degF] Martin Sarmini [facility] 11-18-2024 09:04-0400 Diastolic blood pressure 60 mm[Hg] Martin Sarmini [facility] 11-18-2024 09:04-0400 Heart rate 71 /min Martin Sarmini [facility] 11-18-2024 09:04-0400 Mean blood pressure 76 mm[Hg] Martin Sarmini [facility] 11-18-2024 09:04-0400 Respiratory rate 13 /min Martin Sarmini [facility] 11-18-2024 09:04-0400 Systolic blood pressure 107 mm[Hg] Martin Sarmini [facility] 11-18-2024 08:55-0400 Respiratory rate 12 /min Martin Sarmini [facility] 11-18-2024 08:21-0400 Blood Pressure Location Martin Sarmini [facility] 11-18-2024 08:21-0400 Body temperature 98.06 [degF] Martin Sarmini [facility] 10-26-2024 10:13-0500 Diastolic blood pressure 105 mm[Hg] Evelio Carr [facility] 10-26-2024 10:13-0500 Heart rate 69 /min Evelio Carr [facility] 10-26-2024 10:13-0500 Mean blood pressure 126 mm[Hg] Evelio Carr [facility] 10-26-2024 10:13-0500 Respiratory rate 14 /min Evelio Carr [facility] 10-26-2024 10:13-0500 Systolic blood pressure 169 mm[Hg] Evelio Carr [facility] 10-05-2024 09:00-0500 Blood Pressure Location Vic Sosinski [employer] [facility] 10-05-2024 09:00-0500 Diastolic blood pressure 78 mm[Hg] Vic Moserinski [employer] [facility] 10-05-2024 09:00-0500 Heart rate 78 /min Vic Moserinski [employer] [facility] 10-05-2024 09:00-0500 SaO2% (BldA) [Mass fraction] 100 % Vic Sosinski [employer] [facility] 10-05-2024 09:00-0500 Systolic blood pressure 138 mm[Hg] Vic Sosinski [employer] [facility] 09-29-2024 13:43-0500 Body temperature 98.24 [degF] [facility] 09-29-2024 13:43-0500 Diastolic blood pressure 77 mm[Hg] [facility]-29-[facility] 13:43-0500 Heart rate 74 /min [facility] 09-29-2024 13:43-0500 Mean blood pressure 96 mm[Hg] [facility]-29-2024 13:43-0500 Respiratory rate 16 /min [facility] 09-29-2024 13:43-0500 SaO2% (BldA) [Mass fraction] 100 % Kavon Lu [facility] 09-29-2024 13:43-0500 Systolic blood pressure 133 mm[Hg] Kavon Lu [facility] 08-19-2024 17:23-0500 Diastolic blood pressure 90 mm[Hg] Loreta Cummings [facility] 08-19-2024 17:23-0500 Mean blood pressure 113 mm[Hg] Loreta Cummings [facility] 08-19-2024 17:23-0500 Systolic blood pressure 160 mm[Hg] Loreta Cummings [facility] 08-19-2024 15:27-0500 Blood Pressure Location Loreta Cummings [facility] 08-19-2024 15:27-0500 Body temperature 98.42 [degF] Loreta Cummings [facility] 08-19-2024 15:27-0500 Diastolic blood pressure 68 mm[Hg] Loreta Cummings [facility] 08-19-2024 15:27-0500 Heart rate 70 /min Loreta Cummings [facility] 08-19-2024 15:27-0500 Respiratory rate 18 /min Loreta Cummings [facility] 08-19-2024 15:27-0500 Systolic blood pressure 146 mm[Hg] Loreta Cummings [facility] 06-09-2024 13:26-0400 Blood Pressure Location Mario Evans [facility] 06-09-2024 13:26-0400 Diastolic blood pressure 77 mm[Hg] Martin Sarmini [facility] 06-09-2024 13:26-0400 Heart rate 72 /min Martin Sarmini [facility] 06-09-2024 13:26-0400 Systolic blood pressure 127 mm[Hg] Martin Sarmini [facility] 05-12-2024 15:35-0400 Blood Pressure Location Martin Sarmini [facility] 05-12-2024 15:35-0400 Diastolic blood pressure 72 mm[Hg] Martin Sarmini [facility] 05-12-2024 15:35-0400 Heart rate 77 /min Martin Sarmini [facility] 05-12-2024 15:35-0400 Systolic blood pressure 114 mm[Hg] Martin Sarmini [facility] 05-12-2024 09:36-0400 Body height 170.2 cm Radha Bertrand MD Work Phone: [facility] 05-12-2024 09:36-0400 Body mass index (BMI) [Ratio] 25.56 kg/m2 Radha Bertrand MD Work Phone: [facility] 05-12-2024 09:36-0400 Body weight 74.03 kg Radha Bertrand MD Work Phone: [facility] 05-12-2024 09:36-0400 Diastolic blood pressure 76 mm[Hg] Radha Bertrand MD Work Phone: [facility] 05-12-2024 09:36-0400 Heart rate 65 /min Radha Bertrand MD Work Phone: [facility] 05-12-2024 09:36-0400 SaO2% (BldA) [Mass fraction] 97 % Radha Bertrand MD Work Phone: [facility] 05-12-2024 09:36-0400 Systolic blood pressure 132 mm[Hg] Radha Bertrand MD Work Phone: [facility] 05-11-2024 09:08-0400 Body temperature 98.06 [degF] [facility] 05-11-2024 09:08-0400 Diastolic blood pressure 58 mm[Hg] [facility] 05-11-2024 09:08-0400 Heart rate 71 /min [facility] 05-11-2024 09:08-0400 Mean blood pressure 80 mm[Hg] [facility] 05-11-2024 09:08-0400 Respiratory rate 16 /min [facility] 05-11-2024 09:08-0400 SaO2% (BldA) [Mass fraction] 100 % [facility] 05-11-2024 09:08-0400 Systolic blood pressure 123 mm[Hg] [facility] 04-29-2024 09:05-0400 Blood Pressure Location Loreta Cummings [facility] 04-29-2024 09:05-0400 Body temperature 98.24 [degF] Loreta Cummings [facility] 04-29-2024 09:05-0400 Diastolic blood pressure 76 mm[Hg] Loreta Cummings [facility] 04-29-2024 09:05-0400 Heart rate 90 /min Loreta Cummings [facility] 04-29-2024 09:05-0400 Respiratory rate 18 /min Loreta Cummings [facility] 04-29-2024 09:05-0400 SaO2% (BldA) [Mass fraction] 99 % Loreta John [facility] 04-29-2024 09:05-0400 Systolic blood pressure 134 mm[Hg] Loreta John [facility] 04-21-2024 14:24-0400 Body height 170.2 cm [facility] 04-21-2024 14:24-0400 Body mass index (BMI) [Ratio] 24.28 kg/m2 [facility] 04-21-2024 14:24-0400 Body weight 70.31 kg [facility] 2 [facility] 04-14-2024 08:37-0400 Body height 170.2 cm Radha Bertrand MD Work Phone: [facility] 04-14-2024 08:37-0400 Body mass index (BMI) [Ratio] 24.28 kg/m2 Radha Bertrand MD Work Phone: [facility] 04-14-2024 08:37-0400 Body weight 70.31 kg Radha Bertrand MD Work Phone: [facility] 04-14-2024 08:37-0400 Diastolic blood pressure 80 mm[Hg] Radha Bertrand MD Work Phone: [facility] 04-14-2024 08:37-0400 Heart rate 95 /min Radha Bertrand MD Work Phone: [facility] 04-14-2024 08:37-0400 SaO2% (BldA) [Mass fraction] 99 % Radha Bertrand MD Work Phone: [facility] 04-14-2024 08:37-0400 Systolic blood pressure 162 mm[Hg] Radha Bertrand MD Work Phone: [facility] 03-17-2024 14:22-0400 Blood Pressure Location Marc Ornelasdarlin [facility] 03-17-2024 14:22-0400 Diastolic blood pressure 82 mm[Hg] Marc Cecinus [facility] 03-17-2024 14:22-0400 Heart rate 66 /min Marc Cecinus [facility] 03-17-2024 14:22-0400 Respiratory rate 16 /min Marc Cecinus [facility] 03-17-2024 14:22-0400 SaO2% (BldA) [Mass fraction] 99 % Marc Cecinus [facility] 03-17-2024 14:22-0400 Systolic blood pressure 140 mm[Hg] Marc Cecinus [facility] 03-14-2024 09:29-0400 Body temperature 98.6 [degF] Ella Gonzales [facility] 03-14-2024 09:29-0400 Diastolic blood pressure 78 mm[Hg] Ella Gonzales [facility] 03-14-2024 09:29-0400 Heart rate 68 /min Ella Mohanke [facility] 03-14-2024 09:29-0400 Mean blood pressure 96 mm[Hg] Ella Mohanke [facility] 03-14-2024 09:29-0400 Respiratory rate 18 /min Ella Mohanke [facility] 03-14-2024 09:29-0400 SaO2% (BldA) [Mass fraction] 100 % Ella Mohanke [facility] 03-14-2024 09:29-0400 Systolic blood pressure 131 mm[Hg] Ella Mohanke [facility] 02-25-2024 09:10-0400 Body temperature 97.88 [degF] Ella Gonzales [facility] 02-25-2024 09:10-0400 Diastolic blood pressure 75 mm[Hg] Ella Gonzales [facility] 02-25-2024 09:10-0400 Heart rate 76 /min Ella Gonzales [facility] 02-25-2024 09:10-0400 Mean blood pressure 94 mm[Hg] Ella Gonzales [facility] 02-25-2024 09:10-0400 Respiratory rate 18 /min Ella Gonzales [facility] 02-25-2024 09:10-0400 SaO2% (BldA) [Mass fraction] 100 % Ella Gonzales [facility] 02-25-2024 09:10-0400 Systolic blood pressure 132 mm[Hg] Ella Gonzales [facility] 01-27-2024 09:42-0400 Blood Pressure Location Loreta Cummings [facility] 01-27-2024 09:42-0400 Body temperature 97.7 [degF] Loreta Cummings [facility] 01-27-2024 09:42-0400 Diastolic blood pressure 62 mm[Hg] Loreta Cummings [facility] 01-27-2024 09:42-0400 Heart rate 72 /min Loreta Cummings [facility] 01-27-2024 09:42-0400 Respiratory rate 14 /min Loreta Cummings [facility] 01-27-2024 09:42-0400 SaO2% (BldA) [Mass fraction] 99 % Loreta Cummings [facility] 01-27-2024 09:42-0400 Systolic blood pressure 130 mm[Hg] Loreta Cummings [facility] 12-23-2023 10:57-0400 Blood Pressure Location Loreta Cummings [facility] 12-23-2023 10:57-0400 Body temperature 97.7 [degF] Loreta Cummings [facility] 12-23-2023 10:57-0400 Diastolic blood pressure 62 mm[Hg] Loreta Cummings [facility] 12-23-2023 10:57-0400 Heart rate 76 /min Loreta Cummings [facility] 12-23-2023 10:57-0400 Respiratory rate 16 /min Loreta Cummings [facility] 12-23-2023 10:57-0400 SaO2% (BldA) [Mass fraction] 100 % Loreta Cummings [facility] 12-23-2023 10:57-0400 Systolic blood pressure 132 mm[Hg] Loreta Cummings [facility] 12-13-2023 11:54-0400 Hourly [facility] 12-13-2023 11:54-0400 Promise to Return [facility] 12-13-2023 11:12-0400 Heart rate 81 /min [facility] 12-13-2023 11:12-0400 SaO2% (BldA) [Mass fraction] 100 % [facility] 12-13-2023 11:11-0400 Diastolic blood pressure 75 mm[Hg] [facility]d [facility] 12-13-2023 11:11-0400 Mean blood pressure 93 mm[Hg] [facility]-13-2023 11:11-0400 Systolic blood pressure 128 mm[Hg] [facility]see [facility] 12-13-2023 11:11-0400 Body temperature 97.88 [degF] [facility] 12-13-2023 10:31-0400 Hourly Rounding [facility] 12-13-2023 10:31-0400 Promise to Return [facility] 12-13-2023 09:26-0400 Hourly Rounding [facility] 12-13-2023 09:26-0400 Promise to Return [facility] 12-13-2023 07:12-0400 Heart rate 87 /min [facility] 12-13-2023 07:12-0400 SaO2% (BldA) [Mass fraction] 100 % [facility] 12-13-2023 07:11-0400 Diastolic blood pressure 68 mm[Hg] [facility]d [facility] 12-13-2023 07:11-0400 Mean blood pressure 85 mm[Hg] [facility] 12-13-2023 07:11-0400 Systolic blood pressure 119 mm[Hg] [facility] 12-13-2023 07:11-0400 Body temperature 98.96 [degF] [facility] 12-13-2023 00:49-0400 Blood Pressure [facility] 12-13-2023 00:49-0400 Body temperature 98.78 [degF] Leonardamad [facility] 12-13-2023 00:49-0400 Diastolic blood pressure 73 mm[Hg] [facility] 12-13-2023 00:49-0400 Heart rate 100 /min [facility]amad [facility] 12-13-2023 00:49-0400 Mean blood pressure 95 mm[Hg] Leonardamad [facility] 12-13-2023 00:49-0400 Systolic blood pressure 138 mm[Hg] Ahmad [facility] 12-12-2023 20:21-0400 Mean blood pressure 84 mm[Hg] Leonardamad [facility] 12-12-2023 04:00-0400 Mean blood pressure 86 mm[Hg] Leonardamad [facility] 12-12-2023 04:00-0400 Respiratory rate 16 /min mad [facility] 12-11-2023 23:41-0400 Blood Pressure Location Desi [facility] 12-11-2023 23:41-0400 Mean blood pressure 81 mm[Hg] Rafiqd [facility] 12-11-2023 14:17-0400 Body temperature 98.06 [degF] [facility]iqd [facility] 12-11-2023 14:17-0400 Heart rate 66 /min mad [facility] 12-11-2023 14:04-0400 Respiratory rate 18 /min mad [facility] 12-11-2023 13:30-0400 Respiratory rate 18 /min mad [facility] 12-11-2023 09:08-0400 Body temperature 97.7 [degF] [facility] 12-11-2023 09:08-0400 Heart rate 76 /min [facility] 11-11-2023 16:50-0500 Blood Pressure Location Mario Evans [facility] 11-11-2023 16:50-0500 Body temperature 98.06 [degF] Martin Sarmini [facility] 11-11-2023 16:50-0500 Diastolic blood pressure 83 mm[Hg] Martin Sarmini [facility] 11-11-2023 16:50-0500 Heart rate 60 /min Martin Sarmini [facility] 11-11-2023 16:50-0500 Mean blood pressure 105 mm[Hg] Martin Sarmini [facility] 11-11-2023 16:50-0500 Respiratory rate 12 /min Martin Sarmini [facility] 11-11-2023 16:50-0500 SaO2% (BldA) [Mass fraction] 100 % Martin Sarmini [facility] 11-11-2023 16:50-0500 Systolic blood pressure 149 mm[Hg] Martin Sarmini [facility] 11-11-2023 16:40-0500 Blood Pressure Location Martin Sarmini [facility] 11-11-2023 16:40-0500 Diastolic blood pressure 81 mm[Hg] Martin Sarmini [facility] 11-11-2023 16:40-0500 Heart rate 63 /min Martin Sarmini [facility] 11-11-2023 16:40-0500 Mean blood pressure 101 mm[Hg] Martin Sarmini [facility] 11-11-2023 16:40-0500 Respiratory rate 17 /min Martin Sarmini [facility] 11-11-2023 16:40-0500 SaO2% (BldA) [Mass fraction] 100 % Martin Sarmini [facility] 11-11-2023 16:40-0500 Systolic blood pressure 140 mm[Hg] Martin Sarmini [facility] 11-11-2023 16:35-0500 Blood Pressure Location Martin Sarmini [facility] 11-11-2023 16:35-0500 Diastolic blood pressure 75 mm[Hg] Martin Sarmini [facility] 11-11-2023 16:35-0500 Heart rate 74 /min Martin Sarmini [facility] 11-11-2023 16:35-0500 Mean blood pressure 96 mm[Hg] Martin Sarmini [facility] 11-11-2023 16:35-0500 Respiratory rate 14 /min Martin Sarmini [facility] 11-11-2023 16:35-0500 SaO2% (BldA) [Mass fraction] 100 % Martin Sarmini [facility] 11-11-2023 16:35-0500 Systolic blood pressure 138 mm[Hg] Martin Sarmini [facility] 11-11-2023 16:25-0500 Body temperature 98.24 [degF] Martin Sarmini [facility] 11-11-2023 16:20-0500 Respiratory rate 18 /min Martin Sarmini [facility] 11-11-2023 16:15-0500 Respiratory rate 19 /min Mario Gouldmini [facility] 11-11-2023 14:32-0500 Body temperature 97.16 [degF] Martin Bryannamini [facility] 10-28-2023 09:31-0500 Blood Pressure Location Loreta Cummings [facility] 10-28-2023 09:31-0500 Body temperature 97.88 [degF] Loreta Cummings [facility] 10-28-2023 09:31-0500 Diastolic blood pressure 70 mm[Hg] Loreta Cummings [facility] 10-28-2023 09:31-0500 Heart rate 76 /min Loreta Cummings [facility] 10-28-2023 09:31-0500 Respiratory rate 16 /min Loreta Cummings [facility] 10-28-2023 09:31-0500 SaO2% (BldA) [Mass fraction] 100 % Loreta Cummings [facility] 10-28-2023 09:31-0500 Systolic blood pressure 130 mm[Hg] Loreta Cummings [facility] 09-21-2023 14:24-0500 Blood Pressure Location Keith Patricia [facility] 09-21-2023 14:24-0500 Body temperature 98.06 [degF] Keith Patricia [facility] 09-21-2023 14:24-0500 Diastolic blood pressure 78 mm[Hg] Keith Patricia [facility] 09-21-2023 14:24-0500 Heart rate 73 /min Keith Patricia [facility] 09-21-2023 14:24-0500 Respiratory rate 18 /min Keith Patricia [facility] 09-21-2023 14:24-0500 SaO2% (BldA) [Mass fraction] 99 % Keith Patricia [facility] 09-21-2023 14:24-0500 Systolic blood pressure 156 mm[Hg] Keith Harshad [facility] 09-01-2023 12:16-0500 Diastolic blood pressure 80 mm[Hg] Martin Sarmini [facility] 09-01-2023 12:16-0500 Mean blood pressure 100 mm[Hg] Martin Sarmini [facility] 09-01-2023 12:16-0500 Systolic blood pressure 140 mm[Hg] Martin Sarmini [facility] 09-01-2023 12:12-0500 Blood Pressure Location Martin Sarmini [facility] 09-01-2023 12:12-0500 Diastolic blood pressure 82 mm[Hg] Martin Sarmini [facility] 09-01-2023 12:12-0500 Heart rate 80 /min Martin Sarmini [facility] 09-01-2023 12:12-0500 Respiratory rate 18 /min Martin Sarmini [facility] 09-01-2023 12:12-0500 Systolic blood pressure 142 mm[Hg] [facility] [facility] 08-26-2023 09:34-0500 Blood Pressure Location Loreta Cummings [facility] 08-26-2023 09:34-0500 Diastolic blood pressure 88 mm[Hg] Loreta Cummings [facility] 08-26-2023 09:34-0500 Heart rate 71 /min Loreta Cummings [facility] 08-26-2023 09:34-0500 Respiratory rate 18 /min Loreta Cummings [facility] 08-26-2023 09:34-0500 SaO2% (BldA) [Mass fraction] 100 % Loreta Cummings [facility] 08-26-2023 09:34-0500 Systolic blood pressure 150 mm[Hg] Loreta Cummings [facility] 07-24-2023 07:37-0500 Blood Pressure Location Loreta Cummings [facility] 07-24-2023 07:37-0500 Diastolic blood pressure 76 mm[Hg] Loreta Cummings [facility] 07-24-2023 07:37-0500 Heart rate 79 /min Loreta Cummings [facility] 07-24-2023 07:37-0500 Respiratory rate 16 /min Loreta Cummings [facility] 07-24-2023 07:37-0500 SaO2% (BldA) [Mass fraction] 100 % Loreta [facility] 07-24-2023 07:37-0500 Systolic blood pressure 132 mm[Hg] Loreta Cummings [facility] 06-19-2023 12:23-0400 Body temperature 97.88 [degF] Teddy Luna [facility] 06-19-2023 12:23-0400 Diastolic blood pressure 105 mm[Hg] Teddy Luna [facility] 06-19-2023 12:23-0400 Heart rate 70 /min Teddy Luna [facility] 06-19-2023 12:23-0400 Respiratory rate 18 /min Teddy Luna [facility] 06-19-2023 12:23-0400 SaO2% (BldA) [Mass fraction] 98 % Teddy Luna [facility] 06-19-2023 12:23-0400 Systolic blood pressure 165 mm[Hg] Teddy Luna [facility] 04-24-2023 11:00-0400 Body height 170.18 cm Jarrod Eddy Other [employer] [facility] [employer] Other 04-24-2023 11:00-0400 Body mass index (BMI) [Ratio] 26.94 kg/m2 Jarrod Eddy Other [employer] Other 04-24-2023 11:00-0400 Body temperature 97.4 [degF] Jarrod Eddy Other [employer] Other 04-24-2023 11:00-0400 Body weight 78.02 kg Jarrod Eddy Other [employer] Other 04-24-2023 11:00-0400 Diastolic blood pressure 70 mm[Hg] Jarrod Eddy Other [employer] Other 04-24-2023 11:00-0400 SaO2% (BldA) [Mass fraction] 99 % Jarrod Eddy Other [employer] Other 04-24-2023 11:00-0400 Systolic blood pressure 138 mm[Hg] Jarrod Dillarddanish Other [employer] Other 04-21-2023 09:38-0400 Body height 170.2 cm Tanvir Black MD Work Phone: [employer] 04-21-2023 09:38-0400 Body mass index (BMI) [Ratio] 27.08 kg/m2 Tanvir Black MD Work Phone: [employer] 04-21-2023 09:38-0400 Body temperature 97.7 [degF] Tanvir Black MD Work Phone: [employer] 04-21-2023 09:38-0400 Body weight 78.43 kg Tanvir Black MD Work Phone: [employer] 04-21-2023 09:38-0400 Diastolic blood pressure 67 mm[Hg] Tanvir Black MD Work Phone: [employer] 04-21-2023 09:38-0400 Heart rate 79 /min Tanvir Black MD Work Phone: [employer] 04-21-2023 09:38-0400 Respiratory rate 20 /min Tanvir Black MD Work Phone: [employer] 04-21-2023 09:38-0400 SaO2% (BldA) [Mass fraction] 100 % Tanvir Black MD Work Phone: [facility] 04-21-2023 09:38-0400 Systolic blood pressure 136 mm[Hg] Tanvir Paul MULTANI Work Phone: [facility] 03-22-2023 21:05-0400 Diastolic blood pressure 80 mm[Hg] Martin Mary Ann [facility] 03-22-2023 21:05-0400 Heart rate 88 /min Martin Mary Ann [facility] 03-22-2023 21:05-0400 Hourly Rounding Martin Mary Ann [facility] 03-22-2023 21:05-0400 Promise to Return Martin Mary Ann [facility] 03-22-2023 21:05-0400 Respiratory rate 18 /min Martin Mary Ann [facility] 03-22-2023 21:05-0400 SaO2% (BldA) [Mass fraction] 100 % Martin Mary Ann [facility] 03-22-2023 21:05-0400 Systolic blood pressure 148 mm[Hg] Martin Mray Ann [facility] 03-22-2023 20:07-0400 Body temperature 97.7 [degF] Martin Mary Ann [facility] 03-22-2023 20:07-0400 Diastolic blood pressure 84 mm[Hg] Martin Mary Ann [facility] 03-22-2023 20:07-0400 Heart rate 92 /min Martin Mary Ann [facility] 03-22-2023 20:07-0400 Respiratory rate 18 /min Martin Mary Ann [facility] 03-22-2023 20:07-0400 SaO2% (BldA) [Mass fraction] 100 % Martin Reese [facility] 03-22-2023 20:07-0400 Systolic blood pressure 151 mm[Hg] Martin Reese [facility] 02-18-2023 09:11-0400 Diastolic blood pressure 70 mm[Hg] Brent Sanches [facility] 02-18-2023 09:11-0400 Heart rate 82 /min Brent Myron [facility] 02-18-2023 09:11-0400 Mean blood pressure 91 mm[Hg] Brent Myron [facility] 02-18-2023 09:11-0400 Respiratory rate 16 /min Brent Myron [facility] 02-18-2023 09:11-0400 SaO2% (BldA) [Mass fraction] 98 % Brent Myron [facility] 02-18-2023 09:11-0400 Systolic blood pressure 132 mm[Hg] Brent Myron [facility] 02-18-2023 07:45-0400 Body temperature 98.96 [degF] Brent Myron [facility] 02-18-2023 07:45-0400 Diastolic blood pressure 80 mm[Hg] Brent Myron [facility] 02-18-2023 07:45-0400 Heart rate 95 /min Brent Myron [facility] 02-18-2023 07:45-0400 Respiratory rate 16 /min Brent Myron [facility] 02-18-2023 07:45-0400 SaO2% (BldA) [Mass fraction] 100 % Brent Myron [facility] 02-18-2023 07:45-0400 Systolic blood pressure 153 mm[Hg] Brent Sanches [facility] 01-20-2023 12:00-0400 Diastolic blood pressure 71 mm[Hg] 1 [facility] 01-20-2023 12:00-0400 Heart rate 78 /min 1 [facility] 01-20-2023 12:00-0400 Respiratory rate 16 /min 1 [facility] 01-20-2023 12:00-0400 SaO2% (BldA) [Mass fraction] 94 % 1 [facility] 01-20-2023 12:00-0400 Systolic blood pressure 118 mm[Hg] 1 [facility] 01-20-2023 07:30-0400 Body temperature 98.71 [degF] 1 [facility] 01-12-2023 09:49-0400 Body height 170.2 cm [facility] 01-12-2023 09:49-0400 Body mass index (BMI) [Ratio] 27.28 kg/m2 Tanvir Black MD Work Phone: [facility] 01-12-2023 09:49-0400 Body temperature 96.6 [degF] Tanvir Black MD Work Phone: [employer] 01-12-2023 09:49-0400 Body weight 79.02 kg Tanvir lBack MD [facility] 01-12-2023 09:49-0400 Diastolic blood pressure 56 mm[Hg] Tanvir Black MD Work Phone: [facility] 01-12-2023 09:49-0400 Heart rate 79 /min Tanvir Black MD Work Phone: [facility] 01-12-2023 09:49-0400 Respiratory rate 20 /min Tanvir Black MD Work Phone: [facility] 01-12-2023 09:49-0400 SaO2% (BldA) [Mass fraction] 100 % Tanvir Black MD Work Phone: [facility] 01-12-2023 09:49-0400 Systolic blood pressure 121 mm[Hg] [facility] 01-12-2023 08:58-0400 Body mass index (BMI) [Ratio] 27.41 kg/m2 Marcello Ibanez MD Work Phone: [facility] 01-12-2023 08:58-0400 Body temperature 96.6 [degF] Marcello Ibanez MD Work Phone: [facility] 01-12-2023 08:58-0400 Body weight 79.38 kg Marcello Ibanez MD Work Phone: [facility] 01-12-2023 08:58-0400 Diastolic blood pressure 56 mm[Hg] Marcello Ibanez MD Work Phone: [facility] 01-12-2023 08:58-0400 Heart rate 79 /min Marcello Ibanez MD Work Phone: [facility] 01-12-2023 08:58-0400 Systolic blood pressure 121 mm[Hg] Marcello Ibanez MD Work Phone: [facility] 12-16-2022 09:49-0400 Body height 170.2 cm [facility] 12-16-2022 09:49-0400 Body mass index (BMI) [Ratio] 28.05 kg/m2 Dejuan Lechuga MD Work Phone: [facility] 12-16-2022 09:49-0400 Body weight 81.24 kg Dejuan Lechuga MD Work Phone: [employer] 12-16-2022 09:49-0400 Diastolic blood pressure 57 mm[Hg] Dejuan Lechuga MD Work Phone: [facility] 12-16-2022 09:49-0400 Heart rate 85 /min Dejuan Lechuga MD Work Phone: [facility] 12-16-2022 09:49-0400 SaO2% (BldA) [Mass fraction] 100 % Dejuan Lechuga MD Work Phone: [facility] 12-16-2022 09:49-0400 Systolic blood pressure 113 mm[Hg] Dejuan Lechuga MD Work Phone: [facility] 11-13-2022 11:23-0500 Body mass index (BMI) [Ratio] 26.63 kg/m2 Tanvir Black MD Work Phone: [facility] 11-13-2022 11:23-0500 Body temperature 98.6 [degF] Tanvir Black MD Work Phone: [facility] 11-13-2022 11:23-0500 Body weight 77.11 kg Tanvir Black MD Work Phone: [facility] 11-13-2022 11:23-0500 Diastolic blood pressure 62 mm[Hg] Tanvir Black MD Work Phone: [facility] 11-13-2022 11:23-0500 Heart rate 86 /min Tanvir Black MD Work Phone: [facility] 11-13-2022 11:23-0500 Respiratory rate 14 /min Tanvir Black MD Work Phone: [facility] 11-13-2022 11:23-0500 SaO2% (BldA) [Mass fraction] 100 % Tanvir Black MD Work Phone: [facility] 11-13-2022 11:23-0500 Systolic blood pressure 153 mm[Hg] Tanvir Black MD Work Phone: [facility] 10-27-2022 09:49-0500 Body mass index (BMI) [Ratio] 26.59 kg/m2 Marcello Ibanez MD Work Phone: [facility] 10-27-2022 09:49-0500 Body temperature 97.5 [degF] Marcello Ibanez MD Work Phone: [facility] 10-27-2022 09:49-0500 Body weight 77.02 kg Marcello Ibanez MD Work Phone: [facility] 10-27-2022 09:49-0500 Diastolic blood pressure 55 mm[Hg] Marcello Ibanez MD Work Phone: [facility] 10-27-2022 09:49-0500 Heart rate 84 /min Marcello Ibanez MD Work Phone: [facility] 10-27-2022 09:49-0500 SaO2% (BldA) [Mass fraction] 100 % Marcello Ibanez MD Work Phone: [facility] 10-27-2022 09:49-0500 Systolic blood pressure 128 mm[Hg] Marcello Ibanez MD Work Phone: [facility] 08-25-2022 13:44-0500 Body mass index (BMI) [Ratio] 26.78 kg/m2 Theo Burks MD Work Phone: [facility] 08-25-2022 13:44-0500 Body temperature 98.49 [degF] Theo Burks MD Work Phone: [facility] 08-25-2022 13:44-0500 Body weight 77.56 kg Theo Burks MD Work Phone: [facility] 08-25-2022 13:44-0500 Diastolic blood pressure 65 mm[Hg] Theo Burks MD Work Phone: [facility] 08-25-2022 13:44-0500 Heart rate 69 /min Theo Burks MD Work Phone: [facility] 08-25-2022 13:44-0500 Respiratory rate 18 /min Theo Burks MD Work Phone: [facility] 08-25-2022 13:44-0500 SaO2% (BldA) [Mass fraction] 99 % Theo Burks MD Work Phone: [facility] 08-25-2022 13:44-0500 Systolic blood pressure 132 mm[Hg] Theo Burks MD Work Phone: [facility] 08-25-2022 10:42-0500 Body mass index (BMI) [Ratio] 26.94 kg/m2 Abbey Alvarez MD Work Phone: [facility] 08-25-2022 10:42-0500 Body temperature 98.2 [degF] Abbey Alvarez MD Work Phone: [facility] 08-25-2022 10:42-0500 Body weight 78.02 kg Abbey Alvarez MD Work Phone: [facility] 08-25-2022 10:42-0500 Diastolic blood pressure 50 mm[Hg] Abbey Alvarez MD Work Phone: [facility] 08-25-2022 10:42-0500 Heart rate 82 /min Abbey Alvarez MD Work Phone: [facility] 08-25-2022 10:42-0500 Systolic blood pressure 129 mm[Hg] Abbey Alvarez MD Work Phone: [facility] 08-15-2022 15:50-0500 Heart rate 78 /min Ann-Marie Bonner MD Work Phone: [facility] 08-15-2022 15:50-0500 Respiratory rate 14 /min Ann-Marie Bonner MD Work Phone: [facility] 08-15-2022 15:50-0500 SaO2% (BldA) [Mass fraction] 98 % Ann-Marie Bonner MD Work Phone: [facility] 08-15-2022 12:51-0500 Body mass index (BMI) [Ratio] 20.52 kg/m2 Ann-Marie Bonner MD Work Phone: [facility] 08-15-2022 12:51-0500 Body temperature 98.49 [degF] Ann-Marie Bonner MD Work Phone: [facility] 08-15-2022 12:51-0500 Body weight 59.42 kg Ann-Marie Bonner MD Work Phone: [facility] 08-15-2022 12:51-0500 Diastolic blood pressure 70 mm[Hg] Ann-Marie Bonner MD Work Phone: [facility] 08-15-2022 12:51-0500 Systolic blood pressure 147 mm[Hg] Ann-Marie Bonner MD Work Phone: [facility] 08-15-2022 10:16-0500 Body mass index (BMI) [Ratio] 26.72 kg/m2 Nenita Franco MD Work Phone: [facility] 08-15-2022 10:16-0500 Body temperature 98.6 [degF] Nenita Franco MD Work Phone: [facility] 08-15-2022 10:16-0500 Body weight 77.38 kg Nenita Franco MD Work Phone: [facility] 08-15-2022 10:16-0500 Diastolic blood pressure 56 mm[Hg] Nenita Franco MD Work Phone: [facility] 08-15-2022 10:16-0500 Heart rate 85 /min Nenita Franco MD Work Phone: [facility] 08-15-2022 10:16-0500 Respiratory rate 18 /min Nenita Franco MD Work Phone: [facility] 08-15-2022 10:16-0500 SaO2% (BldA) [Mass fraction] 100 % Nenita Franco MD Work Phone: [facility] 08-15-2022 10:16-0500 Systolic blood pressure 136 mm[Hg] Nenita Franco MD Work Phone: [facility] 08-14-2022 13:12-0500 Diastolic blood pressure 60 mm[Hg] Saskia Madison APRN-[employer] [facility] 08-14-2022 13:12-0500 Systolic blood pressure 128 mm[Hg] Saskia Madison APRN-[employer] [facility] 08-14-2022 13:10-0500 Body mass index (BMI) [Ratio] 27.1 kg/m2 Saskia Madison APRN-[employer] [facility] 08-14-2022 13:10-0500 Body temperature 98.2 [degF] Saskia Madison APRN-[employer] [facility] 08-14-2022 13:10-0500 Body weight 78.47 kg Saskia Madison APRN-[employer] [facility] 08-14-2022 13:10-0500 Heart rate 84 /min Saskia Madison APRN-[employer] [facility] 08-14-2022 11:51-0500 Body height 170.2 cm Tanvir Black MD Work Phone: [employer] 08-14-2022 11:51-0500 Body mass index (BMI) [Ratio] 26.78 kg/m2 Tanvir Black MD Work Phone: [employer] 08-14-2022 11:51-0500 Body temperature 99.19 [degF] Tanvir Black MD Work Phone: [facility] 08-14-2022 11:51-0500 Body weight 77.56 kg Tanvir Black MD Work Phone: [facility] 08-14-2022 11:51-0500 Diastolic blood pressure 60 mm[Hg] Tanvir Black MD Work Phone: [facility] 08-14-2022 11:51-0500 Heart rate 90 /min Tanvir Black MD Work Phone: [facility] 08-14-2022 11:51-0500 Respiratory rate 14 /min Tanvir Black MD Work Phone: [facility] 08-14-2022 11:51-0500 SaO2% (BldA) [Mass fraction] 100 % Tanvir Black MD Work Phone: [facility] 08-14-2022 11:51-0500 Systolic blood pressure 141 mm[Hg] Tanvir Black MD Work Phone: [facility] 05-06-2022 10:03-0400 Body height 170.2 cm Tanvir Black MD Work Phone: [facility] 05-06-2022 10:03-0400 Body mass index (BMI) [Ratio] 26.78 kg/m2 Tanvir Black MD Work Phone: [facility] 05-06-2022 10:03-0400 Body temperature 98.4 [degF] Tanvir Black MD Work Phone: [facility] 05-06-2022 10:03-0400 Body weight 77.56 kg Tanvir Black MD Work Phone: [facility] 05-06-2022 10:03-0400 Diastolic blood pressure 70 mm[Hg] Tanvir Black MD Work Phone: [facility] 05-06-2022 10:03-0400 Heart rate 75 /min Tanvir Black MD Work Phone: [facility] 05-06-2022 10:03-0400 Respiratory rate 16 /min Tanvir Black MD Work Phone: [facility] 05-06-2022 10:03-0400 SaO2% (BldA) [Mass fraction] 100 % Tanvir Black MD Work Phone: [facility] 05-06-2022 10:03-0400 Systolic blood pressure 137 mm[Hg] Tanvir Black MD Work Phone: [facility] 03-13-2022 11:39-0400 Body mass index (BMI) [Ratio] 25.84 kg/m2 Tanvir Black MD Work Phone: [facility] 03-13-2022 11:39-0400 Body temperature 98.49 [degF] Tanvir Black MD Work Phone: [facility] 03-13-2022 11:39-0400 Body weight 74.84 kg Tanvir Black MD Work Phone: [facility] 03-13-2022 11:39-0400 Diastolic blood pressure 69 mm[Hg] Tanvir Black MD Work Phone: [facility] 03-13-2022 11:39-0400 Heart rate 85 /min Tanvir Black MD Work Phone: [facility] 03-13-2022 11:39-0400 Respiratory rate 14 /min Tanvir Black MD Work Phone: [facility] 03-13-2022 11:39-0400 SaO2% (BldA) [Mass fraction] 100 % [facility] 03-13-2022 11:39-0400 Systolic blood pressure 137 mm[Hg] Tanvir Black MD Work Phone: [facility] 02-17-2022 16:07-0400 Diastolic blood pressure 76 mm[Hg] [facility] 02-17-2022 16:07-0400 Heart rate 84 /min [facility] 02-17-2022 16:07-0400 Mean blood pressure 94 mm[Hg] [facility] 02-17-2022 16:07-0400 Respiratory rate 18 /min [facility] 02-17-2022 16:07-0400 SaO2% (BldA) [Mass fraction] 98 % [facility] 02-17-2022 16:07-0400 Systolic blood pressure 129 mm[Hg] [facility] 02-17-2022 15:18-0400 Diastolic blood pressure 75 mm[Hg] [facility] 02-17-2022 15:18-0400 Heart rate 79 /min [facility] 02-17-2022 15:18-0400 Mean blood pressure 92 mm[Hg] [facility] 02-17-2022 15:18-0400 Respiratory rate 16 /min [facility] 02-17-2022 15:18-0400 SaO2% (BldA) [Mass fraction] 99 % [facility] 02-17-2022 15:18-0400 Systolic blood pressure 126 mm[Hg] [facility] 02-17-2022 14:58-0400 Diastolic blood pressure 76 mm[Hg] [facility] 02-17-2022 14:58-0400 Heart rate 79 /min [facility] 02-17-2022 14:58-0400 Mean blood pressure 99 mm[Hg] [facility] 02-17-2022 14:58-0400 Respiratory rate 18 /min [facility] 02-17-2022 14:58-0400 SaO2% (BldA) [Mass fraction] 100 % [facility] 02-17-2022 14:58-0400 Systolic blood pressure 144 mm[Hg] [facility] 02-17-2022 12:30-0400 Body temperature 98.24 [degF] [facility] 02-17-2022 12:30-0400 Heart rate 101 /min [facility] 02-17-2022 12:30-0400 Respiratory rate 18 /min [facility] 02-11-2022 10:22-0400 Body height 170.2 cm Tanvir Black MD Work Phone: [facility] 02-11-2022 10:22-0400 Body mass index (BMI) [Ratio] 26.16 kg/m2 Tanvir Black MD Work Phone: [facility] 02-11-2022 10:22-0400 Body temperature 98.2 [degF] Tanvir Black MD Work Phone: [facility] 02-11-2022 10:22-0400 Body weight 75.75 kg Tanvir Black MD Work Phone: [facility] 02-11-2022 10:22-0400 Diastolic blood pressure 81 mm[Hg] Tanvir Black MD Work Phone: [facility] 02-11-2022 10:22-0400 Heart rate 103 /min Tanvir Black MD Work Phone: [facility] 02-11-2022 10:22-0400 Respiratory rate 16 /min Tanvir Black MD Work Phone: [facility] 02-11-2022 10:22-0400 SaO2% (BldA) [Mass fraction] 100 % Tanvir Black MD Work Phone: [facility] 02-11-2022 10:22-0400 Systolic blood pressure 157 mm[Hg] Tanvir Black MD Work Phone: [facility] 01-17-2022 14:20-0400 Body temperature 98.29 [degF] Francisco Marino MD Work Phone: [facility] 01-17-2022 14:20-0400 Diastolic blood pressure 56 mm[Hg] Francisco Marino MD Work Phone: [facility] 01-17-2022 14:20-0400 Heart rate 83 /min Francisco Marino MD Work Phone: [facility] 01-17-2022 14:20-0400 Respiratory rate 18 /min Francisco Marino MD Work Phone: [facility] 01-17-2022 14:20-0400 SaO2% (BldA) [Mass fraction] 100 % Francisco Marino MD Work Phone: [facility] 01-17-2022 14:20-0400 Systolic blood pressure 125 mm[Hg] Francisco Marino MD Work Phone: [facility] 01-17-2022 06:00-0400 Body mass index (BMI) [Ratio] 22.77 kg/m2 Francisco [facility] 01-17-2022 06:00-0400 Body weight 65.95 kg Francisco [facility] 01-10-2022 18:36-0400 Heart rate 96 /min Francisco [facility] 01-08-2022 21:47-0400 Heart rate 76 /min Francisco [facility] 01-08-2022 14:00-0400 Hourly Rounding Aldair Ila [facility] 01-08-2022 14:00-0400 Promise to Return Aldair Ila [facility] 01-08-2022 14:00-0400 SaO2% (BldA) [Mass fraction] 100 % Aldair Ila [facility] 01-08-2022 08:00-0400 Body height 170.2 cm Francisco Marino MD Work Phone: [facility] 01-08-2022 05:00-0400 Diastolic blood pressure 70 mm[Hg] Aldair Ila [facility] 01-08-2022 05:00-0400 Heart rate 87 /min Aldair Ila [facility] 01-08-2022 05:00-0400 Mean blood pressure 91 mm[Hg] Aldair Ila [facility] 01-08-2022 05:00-0400 Respiratory rate 18 /min Aldair Ial [facility] 01-08-2022 05:00-0400 Systolic blood pressure 134 mm[Hg] Aldair Ila [facility] 01-08-2022 04:00-0400 Body temperature 98.96 [degF] Aldair Ila [facility] 01-08-2022 04:00-0400 Diastolic blood pressure 74 mm[Hg] Aldair Ila [facility] 01-08-2022 04:00-0400 Heart rate 96 /min Aldair Ila [facility] 01-08-2022 04:00-0400 Mean blood pressure 90 mm[Hg] Aldair Ila [facility] 01-08-2022 04:00-0400 Respiratory rate 20 /min Aldair Ila [facility] 01-08-2022 04:00-0400 SaO2% (BldA) [Mass fraction] 97 % Aldair Ila [facility] 01-08-2022 04:00-0400 Systolic blood pressure 122 mm[Hg] Aldair Ila [facility] 01-08-2022 03:00-0400 Diastolic blood pressure 72 mm[Hg] Aldair Ila [facility] 01-08-2022 03:00-0400 Heart rate 80 /min Aldair Ila [facility] 01-08-2022 03:00-0400 SaO2% (BldA) [Mass fraction] 98 % Aldair Ila [facility] 01-08-2022 03:00-0400 Systolic blood pressure 126 mm[Hg] Aldair Ila [facility] 01-08-2022 00:00-0400 Body temperature 98.42 [degF] Aldair Ila [facility] 01-07-2022 20:30-0400 Body temperature 98.06 [degF] Aldair Ila [facility] 01-07-2022 20:00-0400 Blood Pressure Location Aldair Galiciaer [facility] 01-07-2022 19:13-0400 Heart rate 112 /min Aldair Galiciaer [facility] 01-07-2022 19:00-0400 Blood Pressure Location Aldair Galiciaer [facility] 01-07-2022 18:00-0400 Blood Pressure Location Aldair Thorpe [facility] 01-07-2022 17:04-0400 Heart rate 110 /min Aldair Galiciaer [facility] 01-07-2022 14:32-0400 Heart rate 117 /min [facility] Ila [facility] Encounters Encounter Date Encounter Type Care Provider Facility Start: 04-07-2025 ambulatory Vic Ramos Facili ty:[facility] Start: 01-24-2025 End: 01-24-2025 Bamboo flowsheet Kenn Hickey PhD Work Phone: [facility] Start: 01-24-2025 End: 01-24-2025 Arao flowsheet Kenn Hickey PhD Work Phone: [facility] Start: 01-24-2025 End: 01-24-2025 Patient encounter procedure Kenn Hickey PhD Work Phone: [facility] Comment on above: Other chronic pain ( Primary Dx); Spinal cord stimulator status Start: 01-24-2025 End: 01-24-2025 ambulatory KENN HICKEY Not Available Start: 01-12-2025 End: 01-12-2025 ambulatory Vic Ramos Facility:[facility] Start: 01-12-2025 End: 01-12-2025 Patient encounter procedure Evelio Carr [facility] Start: 01-03-2025 End: 01-03-2025 ambulatory Evelio Carr Facility:[facility] Start: 01-03-2025 End: 01-03-2025 Pain Management Evelio Carr [facility] Start: 12-21-2024 End: 12-21-2024 ambulatory Vic Ramos Facility:[facility] Start: 12-20-2024 End: 12-20-2024 ambulatory Vic Ramos Facility:[facility] Start: 12-20-2024 End: 12-20-2024 Patient encounter procedure Sadie Loco [facility] Start: 11-28-2024 End: 11-29-2024 ambulatory Sadie Loco Facility:[facility] Start: 11-28-2024 End: 11-29-2024 Patient encounter procedure Sadie Loco [facility] Start: 11-21-2024 End: 11-21-2024 ambulatory Sadie Loco Facility:[facility] Start: 11-21-2024 End: 11-21-2024 Patient encounter procedure Sadie Loco [facility] Start: 11-21-2024 End: 11-21-2024 ambulatory Mario Evans Facility:[facility] Start: 11-21-2024 End: 11-21-2024 Patient encounter procedure Sadie Loco [facility] Start: 11-18-2024 End: 11-18-2024 Patient encounter procedure Keith Patricia [facility] Start: 11-18-2024 End: 11-18-2024 ambulatory Keith Patricia Facility:[facility] Start: 11-18-2024 End: 11-18-2024 ambulatory Mario Marreroi Facility:[facility] Start: 11-18-2024 End: 11-18-2024 Patient encounter procedure Mario Evans [facility] Start: 11-11-2024 End: 11-11-2024 ambulatory Mario Marreroi Facility:[facility] Start: 11-09-2024 End: 11-09-2024 ambulatory Evelio CarmelinaSarah Carr Facility:[facility] Start: 11-09-2024 End: 11-09-2024 Patient encounter procedure Evelio Carr [facility] Start: 10-26-2024 End: 10-26-2024 ambulatory Evelio Carr Facility:[facility] Start: 10-26-2024 End: 10-26-2024 Patient encounter procedure Evelio Carr [facility] Start: 10-05-2024 End: 10-05-2024 ambulatory Vic Ramos Facility:[facility] Start: 10-05-2024 End: 10-05-2024 Patient encounter procedure Vic Ramos [employer] [facility] Start: 09-29-2024 End: 09-29-2024 ambulatory Kavon Lu Facility:[facility] Start: 09-29-2024 End: 09-29-2024 Patient encounter procedure Kavon Lu [facility] Start: 09-16-2024 End: 09-16-2024 ambulatory Kavon Lu Facility:[facility] Start: 09-16-2024 End: 09-16-2024 Patient encounter procedure Kavon Lu [facility] Start: 08-19-2024 End: 08-19-2024 ambulatory Loreta Cummings Facility:[facility] Start: 08-19-2024 End: 08-19-2024 Patient encounter procedure Loreta Cummings [facility] Start: 08-11-2024 End: 08-11-2024 ambulatory Kavon Lu Facility:[facility] Start: 08-11-2024 End: 08-11-2024 Patient encounter procedure Kavon Lu [facility] Start: 07-09-2024 End: 07-09-2024 ambulatory Kavon Lu Facility:[facility] Start: 07-09-2024 End: 07-09-2024 Patient encounter procedure Kavon Lu [facility] Start: 06-09-2024 End: 06-09-2024 ambulatory Martin Talal Sarmini Facility:[facility] Start: 06-09-2024 End: 06-09-2024 Patient encounter procedure Martin Talal Sarmini [facility] Start: 05-24-2024 End: 05-24-2024 ambulatory Martin Talal Sarmini Facility:[facility] Start: 05-24-2024 End: 05-24-2024 Patient encounter procedure Martin Talal Sarmini [facility] Start: 05-20-2024 ambulatory Loreta Cummings Facil [facility] Start: 05-12-2024 End: 05-12-2024 ambulatory Martin Talal Sarmini Facility:[facility] Start: 05-12-2024 End: 05-12-2024 Patient encounter procedure Martin Talal Sarmini [facility] Start: 05-12-2024 End: 05-12-2024 Office outpatient visit 15 minutes Radha Bertrand MD Work Phone: [facility] Comment on above: Lymphedema (Primary Dx) Start: 05-11-2024 End: 05-11-2024 ambulatory Ella Gonzales Facility:[facility] Start: 05-11-2024 End: 05-11-2024 Patient encounter procedure Kavon Lu [facility] Start: 05-06-2024 End: 05-06-2024 ambulatory Kavon Lu Facility:[facility] Start: 05-06-2024 End: 05-06-2024 Patient encounter procedure Kavon Lu [facility] Start: 04-29-2024 End: 04-29-2024 ambulatory Loreta Cummings Facility:[facility] Start: 04-29-2024 End: 04-29-2024 Patient encounter procedure Loreta Cummings [facility] Start: 04-27-2024 End: 04-27-2024 Evaluation and management of inpatient [facility] Start: 04-26-2024 End: 04-27-2024 Evaluation and management of inpatient [facility] Start: 04-26-2024 End: 04-26-2024 Evaluation and management of inpatient [facility] Start: 04-21-2024 End: 04-21-2024 Admission to [facility] Phone Call Provider 2 [facility] Start: 04-21-2024 End: 04-21-2024 Evaluation and management of inpatient LORETA CUMMINGS 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 with pain (Primary Dx); AVM (arteriovenous malformation) Start: 04-13-2024 End: 04-29-2024 Pre-admission assessment Kavon Bowmanronan [facility] Start: 04-05-2024 End: 04-29-2024 ambulatory Loreta Cummings Facility::[id number] Start: 03-17-2024 End: 03-17-2024 ambulatory Loreta Cummings Facility:[facility] Start: 03-17-2024 End: 03-17-2024 Patient encounter procedure Marc Liz [facility] Start: 03-14-2024 End: 03-14-2024 ambulatory [facility] Ella Crainstefany Facility:[facility] Start: 03-14-2024 End: 03-14-2024 Patient encounter procedure Ella Crainstefany [facility] Start: 03-02-2024 End: 03-02-2024 ambulatory Ella Crainsharadarcy Facility:[facility] Start: 03-02-2024 End: 03-02-2024 Patient encounter procedure Ella Crainstefany [facility] Start: 02-25-2024 End: 02-25-2024 ambulatory Loreta Cummings Facility:[facility] Start: 02-25-2024 End: 02-25-2024 Patient encounter procedure Ella Crainsharadarcy [facility] Start: 02-20-2024 End: 02-20-2024 ambulatory [facility] Ella Crainsharadarcy Facility:[facility] Start: 02-20-2024 End: 02-20-2024 Patient encounter procedure Ella Gonzales [facility] Start: 02-06-2024 End: 02-08-2024 Refill Marcello Ibanez MD Work Phone: [facility] Comment on above: Refill Start: 01-27-2024 End: 01-27-2024 ambulatory Loreta Cummings Facility:[facility] Start: 01-27-2024 End: 01-27-2024 Patient encounter procedure Loreta Cummings [facility] Start: 12-31-2023 End: 12-31-2023 ambulatory Loreta Cummings Facility:[facility] Start: 12-31-2023 End: 12-31-2023 Patient encounter procedure Loreta Cummings [facility] Start: 12-30-2023 End: 12-30-2023 ambulatory JOSIANE MCCULLOUGH Facility:[facility] Start: 12-30-2023 End: 12-30-2023 Patient encounter procedure Margaret Zuñiga MD Work Phone: General Surgery Comment on above: Gallstones (Primary Dx) Start: 12-23-2023 End: 12-23-2023 ambulatory Loreta Cummings Facility:[facility] Start: 12-23-2023 End: 12-23-2023 Patient encounter procedure Loreta Cummings [facility] Start: 12-21-2023 End: 12-21-2023 ambulatory Loreta Cummings Facility:[facility] Start: 12-21-2023 End: 12-21-2023 Patient encounter procedure Loreta Cummings [facility] Start: 12-14-2023 End: 01-13-2024 ambulatory Loreta Cummings Facility:CD:[id number] Start: 12-11-2023 End: 12-13-2023 Observation Desi Mena [facility] Start: 12-11-2023 End: 12-11-2023 Patient encounter procedure Loreta Cummings [facility] Start: 11-11-2023 End: 11-11-2023 Patient encounter procedure Mario Gouldmini [facility] Start: 10-28-2023 End: 10-28-2023 Patient encounter procedure Loreta Cummings [facility] Start: 10-01-2023 End: 10-01-2023 Subsequent hospital visit by physician Tanvir Black MD Work Phone: [facility] Medical Comment on above: 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) Start: 10-01-2023 End: 10-01-2023 Patient encounter procedure Loreta Cummings [facility] Start: 10-01-2023 End: 10-01-2023 ambulatory THEO BURKS Facility:[facility] Start: 09-27-2023 Letter encounter Theo bright MD Work Phone: [facility] Start: 09-21-2023 End: 09-21-2023 Patient encounter procedure Keith Patricia [facility] Start: 09-03-2023 End: 09-03-2023 Patient encounter procedure Mario Xiong Sarmini [facility] Start: 09-01-2023 End: 09-01-2023 Patient encounter procedure Mario Evans [facility] Start: 08-26-2023 End: 08-26-2023 Patient encounter procedure Loreta Cummings [facility] Start: 08-25-2023 Refill Tanvir Black MD Work Phone: [facility] Comment on above: Refill Start: 08-06-2023 End: 08-06-2023 Patient encounter procedure Teddy Hitchcock [facility] Start: 08-03-2023 End: 11-01-2023 Recurring Loreta Cummings [facility] Start: 07-24-2023 End: 07-24-2023 Lab Drop off Loreta Cummings [facility] Start: 07-24-2023 End: 07-24-2023 Patient encounter procedure Loreta Cummings [facility] Start: 07-23-2023 End: 07-23-2023 Patient encounter procedure Teddy Hitchcock [facility] Start: 07-20-2023 E-mail encounter fro m caregiver Tanvir Black MD Work Phone: [facility] Start: 07-20-2023 Patient encounter procedure Tanvir Black MD Work Phone: [facility] Comment on above: Had to reschedule ap pointment Start: 07-16-2023 End: 07-16-2023 Patient encounter procedure Teddy Hitchcock [facility] Start: 07-13-2023 Refill Marcello Ibanez MD Work Phone: [facility] Comment on above: Refill Start: 07-11-2023 Refill Tanvir Black MD Work Phone: [facility] Comment on above: Refill Start: 07-06-2023 End: 07-07-2023 Pre-admission assessment Teddy Hitchcock [facility] Start: 06-25-2023 End: 06-25-2023 Patient encounter procedure Teddy Hitchcock [facility] Start: 06-19-2023 End: 06-19-2023 Emergency department patient visit Teddy Luna [facility] Start: 06-18-2023 End: 06-18-2023 Patient encounter procedure Teddy Hitchcock [facility] Start: 06-04-2023 End: 06-04-2023 Patient encounter procedure Teddy Hitchcock [facility] Start: 05-25-2023 End: 05-25-2023 Patient encounter procedure Teddy Hitchcock [facility] Start: 05-14-2023 End: 05-14-2023 Patient encounter procedure Teddy Hitchcock [facility] Start: 05-07-2023 End: 05-07-2023 Patient encounter procedure Teddy Hitchcock [facility] Start: 04-30-2023 End: 05-01-2023 Pre-admission assessment Teddy Hitchcock [facility] Start: 04-24-2023 End: 04-24-2023 ambulatory Jarrod Eddy Other [facility] [employer] Other Start: 04-24-2023 Office outpatient ne w 45 minutes Jarrod Eddy [facility] V[facility] Start: 04-24-2023 Refill Tanvir Black MD Work Phone: [facility] Comment on above: Refill Start: 04-23-2023 End: 04-23-2023 Patient encounter procedure Teddy Hitchcock [facility] Start: 04-22-2023 ambulatory Tanvir Black MD Work Phone: [facility] Comment on above: lab results Start: 04-22-2023 E-mail encounter fro m caregiver Tanvir Black MD Work Phone: [facility] Start: 04-21-2023 End: 04-21-2023 Patient encounter status Tanvir Black MD Work Phone: [facility] Start: 04-21-2023 End: 04-21-2023 Subsequent hospital visit by physician [facility] Comment on above: Dx: Multiple myeloma , remission status unspecified (HCC) (Primary Dx) 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) Start: 04-16-2023 End: 04-16-2023 Patient encounter procedure Teddy Hitchcock [facility] Start: 04-13-2023 End: 04-13-2023 Patient encounter procedure Teddy Hitchcock [facility] Start: 03-22-2023 End: 03-22-2023 Emergency department patient visit Martin Reese [facility] Start: 03-22-2023 Letter encounter Tanvir Black MD Work Phone: [facility] Comment on above: Refill Start: 03-16-2023 End: 03-16-2023 Patient encounter procedure Teddy Hitchcock [facility] Start: 03-06-2023 Refill Theo wilder MD Work Phone: [facility] Comment on above: Refill Prior Authorization Start: 03-05-2023 End: 03-05-2023 Patient encounter procedure Teddy Hitchcock [facility] Start: 02-27-2023 Telephone encounter Nighat rai [employer] Work Phone: [facility] Comment on above: Left Message To Call Back Start: 02-18-2023 End: 02-18-2023 Emergency department patient visit Brent Sanches [facility] Start: 02-09-2023 Refill Dejuan Lechuga MD Work Phone: [facility] Comment on above: Refill Start: 01-20-2023 End: 01-20-2023 Subsequent hospital visit by physician Ip/Op Angio 1 [facility] Radiology Comment on above: Coagulation defect ( HCC) (Primary Dx); Alcoholic fatty liver; Hyperbilirubinemia; Alcoholic hepatitis, unspecified whether ascites present Start: 01-12-2023 End: 01-12-2023 Subsequent hospital visit by physician Meka Lucas RN [facility] Comment on above: 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) Start: 01-12-2023 End: 01-12-2023 Office outpatient visit 25 minutes Marcello Ibanez MD Work Phone: [facility] Comment on above: Liver fibrosis (Prim tanner Dx); Alcohol use disorder in remission; Elevated liver enzymes; Jaundice; Body mass index (BMI) 27.0-27.9, adult Start: 12-20-2022 Letter encounter Theo bright MD Work Phone: [facility] Start: 12-16-2022 End: 12-16-2022 Office outpatient visit 15 minutes Dejuan Lechuga MD Work Phone: [facility] Comment on above: Rib pain (Primary Dx ); Alcoholic cirrhosis of liver without ascites (HCC); Body mass index (BMI) 28.0-28.9, adult Start: 12-15-2022 End: 12-15-2022 Phys/qhp telephone evaluation 11-20 min Theo Burks MD Work Phone: [facility] Comment on above: Rib pain (Primary Dx ) Start: 12-15-2022 Letter encounter Theo bright MD Work Phone: [facility] Start: 12-15-2022 Telephone encounter Theo Burks MD Work Phone: [facility] Start: 12-03-2022 Refill Marcello Ibanez MD Work Phone: [facility] Comment on above: Refill Start: 11-13-2022 End: 11-13-2022 Subsequent hospital visit by physician Tanvir Black MD Work Phone: [facility] Comment on above: 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) Start: 10-27-2022 Letter encounter Theo bright MD Work Phone: [facility] Gastroenterology Start: 10-27-2022 End: 11-03-2022 Office outpatient visit 25 minutes Marcello Ibanez MD Work Phone: [facility] Comment on above: Alcoholic cirrhosis of liver without ascites (HCC) (Primary Dx); Nausea Alcoholic fatty live r (Primary Dx); Nausea; Hyperbilirubinemia; Alcoholic hepatitis, unspecified whether ascites present Alcoholic fatty live r (Primary Dx); Nausea; Hyperbilirubinemia; Alcoholic hepatitis, unspecified whether ascites present; Body mass index (BMI) 26.0-26.9, adult Start: 10-01-2022 Refill Abbey Love Work Phone: [facility] Comment on above: Refill I have a few questio ns Start: 09-21-2022 Letter encounter Theo bright MD Work Phone: [facility] Start: 09-20-2022 Telephone encounter Tanika lange RN Work Phone: [facility] Line Comment on above: Cancel Appointment Start: 09-16-2022 Orders Only Saskia Gricelda [employer] Work Phone: [facility] Start: 09-15-2022 Orders Only Samantha Stauffer [employer] Work Phone: [facility]enter[facility] Start: 08-29-2022 End: 08-29-2022 Phys/qhp telephone evaluation 5-10 min Theo Burks MD Work Phone: [facility] Comment on above: Cellulitis, unspecif ied cellulitis site (Primary Dx); Muscle soreness Start: 08-25-2022 End: 08-25-2022 Orders Only Abbey Alvarez MD Work Phone: [facility] Gastroenterology Comment on above: Arrived Start: 08-25-2022 End: 08-26-2022 Office outpatient visit 25 minutes Abbey Alvarez MD Work Phone: [facility] Comment on above: Alcoholic hepatitis [...] adult Start: 08-22-2022 ambulatory Jim Hill RN [facility] Comment on above: internal med request Start: 08-22-2022 E-mail encounter giana m caregiver Jmi Hill RN [facility] Start: 08-21-2022 Letter encounter Lorena Sparrow Ultrasound Start: 08-16-2022 Orders Only Tanvir Black MD Work Phone: [facility] Start: 08-15-2022 ambulatory Tanvir Black MD Work Phone: [facility] Comment on above: Severe pain Start: 08-15-2022 E-mail encounter giana maguire caregiver Tanvir Black MD Work Phone: [facility] Start: 08-15-2022 End: 08-15-2022 Emergency department patient visit Ann-Marie Bonner MD Work Phone: [facility] Emergency Medicine Comment on above: Leg/thigh symptoms ( Pt states has infection in R leg x 4 days, seen yesterday for same) Start: 08-15-2022 End: 08-15-2022 Office outpatient new 30 minutes Nenita Franco MD Work Phone: [facility] Comment on above: Cellulitis, unspecif ied cellulitis site (Primary Dx); Body mass index (BMI) 26.0-26.9, adult Start: 08-14-2022 Letter encounter [facility] Start: 08-14-2022 End: 08-14-2022 Office consultation new/estab patient 60 min Saskia SILVESTRE Work Phone: [facility] Comment on above: Alcoholic cirrhosis, unspecified whether ascites present (HCC) (Primary Dx); Iron deficiency anemia, unspecified iron deficiency anemia type; Alcoholic cirrhosis of liver without ascites (HCC); Body mass index (BMI) 27.0-27.9, adult Start: 08-14-2022 End: 08-14-2022 Subsequent hospital visit by physician Jasmyne Grimaldo RN [facility] Comment on above: Dx: Thrombocytopenia (HCC) (Primary Dx) Start: 08-14-2022 End: 08-14-2022 Office outpatient visit 40 minutes Tanvir Black MD Work Phone: [facility] Comment on above: 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) Start: 08-08-2022 ambulatory Tanvir Black MD Work Phone: [facility] Comment on above: Question Start: 08-08-2022 E-mail encounter giana m caregiver Tanvir Black MD Work Phone: [facility] Start: 05-06-2022 End: 05-06-2022 Office outpatient visit 40 minutes Tanvir Black MD Work Phone: [facility] Comment on above: 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) Start: 05-06-2022 End: 05-06-2022 Subsequent hospital visit by physician Leslie Canela RN Work Phone: [facility] Comment on above: 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) Start: 05-05-2022 Letter encounter [facility] Cardiology Start: 03-13-2022 Letter encounter [facility] Start: 03-13-2022 End: 03-13-2022 Subsequent hospital visit by physician Rosita Le RN Work Phone: [facility] Comment on above: 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) Start: 03-13-2022 End: 03-13-2022 Office outpatient visit 40 minutes Tanvir Black MD Work Phone: [facility] Comment on above: 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) Start: 02-17-2022 End: 02-17-2022 Emergency department patient visit Christi Luo [facility] Start: 02-11-2022 Telephone encounter Kulwinder Zimmerman kiel PharmD Work Phone: [facility] Comment on above: Specialty Pharmacy R eferral (MMF referral- no PA needed ) Start: 02-11-2022 End: 02-11-2022 Office outpatient visit 5 minutes Cyn Hopper RN [facility]cology Medical Comment on above: 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) Start: 02-11-2022 End: 02-11-2022 Subsequent hospital visit by physician Tanvir Black MD Work Phone: [facility] Comment on above: 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) Start: 01-21-2022 Telephone encounter Liseth JhaD [facility] Comment on above: Prior Authorization Start: 01-08-2022 End: 01-17-2022 Evaluation and management of inpatient Francisco Marino MD Work Phone: Inpatient 10B Start: 01-07-2022 End: 01-08-2022 Evaluation and management of inpatient Aldair Thorpe [facility] Procedures Date Procedure Procedure Detail Performing [...] Phone: Start: 11-13-2022 Alpha-fetoprotein serum Saskia Madison [employer] Work Phone: Start: 11-13-2022 Antihuman globulin direct [...] 01-08-2022 Iadna hepatitis c quant & reverse staffing associate Ivy Chua MD Work Phone: Start: 01-08-2022 [...] 05-08-2025 Influenza vaccination Influenza Vaccine (Season Ended) [facility] Start: 04-26-2025 Adult BMI Screening Adult BMI Screening [facility] Start: 04-26-2025 Tobacco Screening Tobacco Screening [facility] Start: 04-21-2025 Tobacco Screening [facility] Start: 04-14-2025 Adult BMI Screening Adult BMI Screening [facility] Start: 04-14-2025 Tobacco Screening Tobacco Screening [facility] Start: 01-24-2025 End: 01-24-2025 Patient encounter procedure 01/24/2025 9:00 AM EDT Off ice Visit [facility] [address] [address] [place] [phone] Kenn Hickey, PhD [address] [place] [address] Arrived [facility] Comment on above: Arrived Start: 05-12-2024 End: 05-12-2024 Patient encounter procedure 05/12/2024 9:30 AM EDT Off ice Visit [facility] [address] [place] [phone] Radha Bertrand MD [address] [place] [address] [facility] Start: 05-08-2024 COVID-19 Vaccine ( season) COVID-19 Vaccine () [facility] Start: 05-08-2024 Influenza vaccination [facility] Start: 04-26-2024 End: 04-26-2024 Admission to same day surgery center 04/26/2024 10:45 AM EDT - 04/26/2024 1:00 PM EDT Surgery [facility] [address] [place] [address] Radha Bertrand MD [address] [place] [address] ANGIOGRAM EXTREMITY LOWER WITH INTERVENTION [facility] Comment on above: ANGIOGRAM EXTREMITY LOWER WITH INTERVENT ION Start: 04-26-2024 End: 04-26-2024 ANGIOGRAM EXTREMITY LOWER ANGIOGRAM EXTREMITY LOWER ARTERIOVENOUS MALFORMATION LEG RIGHT 04/26/2024 10:45 AM EDT [facility] Start: 04-26-2024 Subsequent hospital visit by physician 04/26/2024 10:45 AM EDT Hospital Encounter [facility] [address] [place] [id number] Radha Bertrand MD [address] [place] [address] [facility] Start: 01-22-2024 End: 01-22-2024 Patient encounter procedure 01/22/2024 9:30 AM EDT Off ice Visit General Surgery [address] [id number] Bang Fuentes MD [address] [place] [address] [facility] Comment on above: [facility] Start: 10-01-2023 End: 10-01-2023 Patient encounter procedure 10/01/2023 8:30 AM EST Appointment [facility] Oncology Medical [address] [place] [address] Tanvir Black MD [address] [place] [address] [facility] Start: 09-07-2023 Behavioral Health Screening Behavioral Health Screening [facility] Start: 07-27-2023 End: 07-27-2023 Patient encounter procedure 07/27/2023 10:00 AM EST Office Visit [facility] Liver [address] [place] [address] Marcello Ibanez MD [address] [place] [address] [facility] Start: 07-20-2023 End: 07-20-2023 Patient encounter procedure [facility] Start: 06-07-2023 Influenza vaccination Influenza Vaccine (#1) [facility] Start: 05-16-2023 Fluid sample AFP level [facility] Start: 05-08-2023 COVID-19 Vaccine ( season) COVID-19 Vaccine ( season) [facility] Start: 05-08-2023 Influenza vaccination Influenza Vaccine (#1) [facility] Start: 04-21-2023 End: 04-21-2023 Patient encounter procedure [facility] Start: 03-20-2023 End: 03-20-2023 Patient encounter procedure [facility] Start: 03-03-2023 End: 03-03-2023 Telemedicine consultation with patient 03/03/2023 11:20 AM EDT Telemedicine [facility] Medicine [address] [place] [address] Nighat Mahmood, ARMAMENT MECHANIC-[employer]CH [employer]ING [employer]DER [address] [place] [address] [facility] Start: 01-20-2023 End: 01-20-2023 Patient encounter procedure 01/20/2023 Appointment Radiology [facility] Radiology Start: 01-12-2023 End: 01-12-2023 Patient encounter procedure [facility] Liver Start: 12-16-2022 End: 12-16-2022 Patient encounter procedure 12/16/2022 Office Visit Family Practice Dejuan Lechuga MD [address] [place] [id number] [facility] Start: 12-15-2022 End: 12-15-2022 Telemedicine consultation with patient 12/15/2022 Telemedicine Family Practice Theo Burks MD [address] [place] [address] [place] [address] Arrived [facility] Comment on above: Arrived Start: 12-15-2022 End: 12-16-2023 XR Ribs - left Views and Chest PA XR RIBS LT UNILAT W/PA CHEST Imaging Routine Rib pain Expected: 12/15/2022, Expires: 12/16/2023 [facility]: Comment on above: Expected: 12/15/2022, Expires: 4 Start: 11-13-2022 End: 11-13-2022 Patient encounter procedure [facility] Start: 10-27-2022 End: 10-27-2023 RF Guidance for transjugular biopsy of Liver-- W contrast IV [facility] Comment on above: Expected: 10/27/2022, Expires: 4 Start: 10-27-2022 End: 10-27-2022 Patient encounter procedure 10/27/2022 Office Visit Gastroenterology Abbey Alvarez MD [address] [place] [address] [place] [address] [facility] Liver Start: 09-22-2022 End: 09-22-2022 Admission to same day surgery center [facility] Comment on above: [...] Hospital Encounter Gastroenterology Claire Avila MD [address] [place] [address] [facility] Start: 09-19-2022 End: 09-19-2022 Patient encounter procedure 09/19/2022 Office Visit Gastroenterology Saskia Madison, LIBAN-FRENCH BINDING FOLDER [address] [facility] [place] [address] [facility] Start: 09-16-2022 End: 10-17-2022 SARS-CoV-2 (COVID-19) RNA [Presence] in Unspecified specimen by ANGIE with probe detection NOVEL CORONAVIRUS (COVID-19) Lab Routine Encounter for laboratory testing for severe acute respiratory syndrome coronavirus 2 (SARS-CoV-2) Expected: 09/16/2022, Expires: 10/17/2022 [facility] Work Phone: Comment on above: Expected: 09/16/2022, Expires: Start: 09-15-2022 End: 10-16-2022 SARS-CoV-2 (COVID-19) RNA [Presence] in Unspecified specimen by ANGIE with probe detection NOVEL CORONAVIRUS (COVID-19) Lab Routine Encounter for laboratory testing for severe acute respiratory syndrome coronavirus 2 (SARS-CoV-2) Expected: 09/15/2022, Expires: 10/16/2022 [facility] Work Phone: Comment on above: Expected: 09/15/2022, Expires: 3 Start: 09-11-2022 Hepatitis B vaccination Hepatitis B (HBV) Vaccine (2 of 3 - 19+ 3-dose series) [facility] Start: 09-11-2022 Hepatitis B Vaccine (2 of 3 - 19+ 3-dose series) Hepatitis B Vaccine (2 of 3 - 19+ 3-dose series) [facility] Start: 09-08-2022 End: 10-26-2022 Basic metabolic 2000 panel - Serum or Plasma BASIC METABOLIC PANEL Lab Routine Alcoholic hepatitis without ascites Alcoholic cirrhosis of liver without ascites (HCC) 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) Expected: 09/08/2022, Expires: 10/26/2022 [facility] Comment on above: Expected: 09/08/2022, Expires: 3 Start: 08-29-2022 End: 08-29-2022 Patient encounter procedure 08/29/2022 Office Visit Family Practice Theo Burks MD [address] [facility] [place] [address] [facility] Start: 08-28-2022 End: 08-28-2022 Telemedicine consultation with patient 08/28/2022 Telemedicine Gastroenterology Saskia Madison, LIBAN-DAYAMI [address] [facility] [place] [address] [facility] Start: 08-27-2022 End: 09-12-2022 Assay of ferritin FERRITIN Lab Routine Alcoholic hepatitis without ascites Alcoholic cirrhosis of liver without ascites (HCC) 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) Expected: 08/27/2022, Expires: 09/12/2022 [facility] Comment on above: Expected: 08/27/2022, Expires: 3 Start: 08-27-2022 End: 09-12-2022 Assay of gammaglobulin iga igd igg igm each IMMUNOGLOBULIN G Lab Routine Alcoholic hepatitis without ascites Alcoholic cirrhosis of liver without ascites (HCC) 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) Expected: 08/27/2022, Expires: 09/12/2022 [facility] Comment on above: Expected: 08/27/2022, Expires: 3 Start: 08-27-2022 End: 09-12-2022 Assay of iron IRON AND TIBC Lab Routine Alcoholic hepatitis without ascites Alcoholic cirrhosis of liver without ascites (HCC) 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) Expected: 08/27/2022, Expires: 09/12/2022 [facility] Comment on above: Expected: 08/27/2022, Expires: 3 Start: 08-27-2022 End: 09-12-2022 Hfe hemochromatosis gene anal common variants HEMOCHROMATOSIS DNA TEST Lab Routine Alcoholic hepatitis without ascites Alcoholic cirrhosis of liver without ascites (HCC) 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) Expected: 08/27/2022, Expires: 09/12/2022 [facility] Comment on above: Expected: 08/27/2022, Expires: 3 Start: 08-27-2022 End: 09-12-2022 Smooth muscle antibody measurement SMOOTH MUSC ATB SCRN & TITR Lab Routine Alcoholic hepatitis without ascites Alcoholic cirrhosis of liver without ascites (HCC) 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) Expected: 08/27/2022, Expires: 09/12/2022 [facility] Comment on above: Expected: 08/27/2022, Expires: 3 Start: 08-27-2022 End: 09-12-2022 Unlisted chemistry procedure MISCELLANEOUS SEND OUT TE ST Lab Routine Alcoholic hepatitis without ascites Alcoholic cirrhosis of liver without ascites (HCC) 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) Expected: 08/27/2022, Expires: 09/12/2022 [employer] Work Phone: Comment on above: Expected: 08/27/2022, Expires: 3 Start: 08-25-2022 End: 09-12-2022 Prothrombin time PROTHROMBIN TIME AND INR Lab Lab Add-On Alcoholic cirrhosis of liver without ascites (HCC) Expected: 08/25/2022, Expires: 09/12/2022 [employer] Work Phone: Comment on above: Expected: 08/25/2022, Expires: 3 Start: 08-25-2022 End: 08-25-2022 Patient encounter procedure [facility] Comment on above: Arrived Start: 08-19-2022 End: 08-19-2022 Professional / ancillary services management 08/19/2022 [facility]illary [facility] Start: 08-19-2022 End: 08-19-2022 Professional / ancillary services management 08/19/2022 Ancillary Procedure [facility] Start: 08-14-2022 End: 08-14-2023 US Abdomen RUQ US LIVER/GALL BLADDER/PANCREAS Imaging Routine Iron deficiency anemia, unspecified iron deficiency anemia type Alcoholic cirrhosis, unspecified whether ascites present (HCC) Expected: 08/14/2022, Expires: 08/14/2023 [employer] Work Phone: Comment on above: Expected: 08/14/2022, Expires: 3 Start: 08-14-2022 End: 08-14-2023 US.doppler Portal vein and Hepatic vein US HEP PORT SPLEN VEIN + DOPPLER Imaging Routine Iron deficiency anemia, unspecified iron deficiency anemia type Alcoholic cirrhosis, unspecified whether ascites present (HCC) Expected: 08/14/2022, Expires: 08/14/2023 [facility] Comment on above: Expected: 08/14/2022, Expires: 3 Start: 08-14-2022 End: 08-14-2022 [facility] Start: 07-11-2022 Hepatocellular Carcinoma Screening Hepatocellular Carcinoma Screening [facility] Start: 07-11-2022 Liver Imaging (Hepatocellular Carcinoma Screening) Liver Imaging (Hepatocellular Carcinoma Screening) [facility] Start: 07-11-2022 [facility] Start: 06-07-2022 Influenza vaccination Influenza Vaccine (#1) [facility] Start: 05-06-2022 Subsequent hospital visit by physician 05/06/2022 Hospital Encounter Oncology Medical Tanvir Black MD [address] [facility] [place] [address] Subj: Appointment Reminder [facility] Comment on above: Subj: Appointment Reminder Start: 05-06-2022 End: 05-06-2022 Patient encounter procedure [facility] Non Invasive Cardiology Start: 04-07-2022 Influenza vaccination Influenza Vaccine (#1) [facility] Start: 03-13-2022 End: 03-13-2022 Patient encounter procedure 03/13/2022 Appointment Oncology Medical [facility] Start: 03-13-2022 End: 03-13-2022 Patient encounter procedure 03/13/2022 Appointment Oncology Medical Tanvir Black MD [address] [facility] [place] [address] [facility] Start: 02-11-2022 End: 02-11-2022 ambulatory [facility] Start: 02-11-2022 End: 02-11-2022 Patient encounter procedure 02/11/2022 Appointment Oncology Medical Tanvir Black MD [address] [facility] [place] [address] [facility] Start: 01-23-2022 End: 01-23-2022 ambulatory [facility] Start: 01-23-2022 End: 01-23-2022 Patient encounter procedure 01/23/2022 Office Visit Orthopedics Ronen Welch MD [address] [facility] [place] [place] [address] [facility] Start: 01-20-2022 End: 01-20-2022 ambulatory [facility] Start: 02-05-2021 COVID-19 Vaccine (2 [...] DTaP,Tdap and Td Vaccines (1 - Tdap) [facility] Start: 2003 Shingles (RZV) Vaccine (1 of 2) Shingles (RZV) Vaccine (1 of 2) [facility] Start: 2003 Shingrix Vaccine (1 of 2) Shingrix Vaccine (1 of 2) [facility] Start: 2003 Urine microalbumin profile DTaP,Tdap,Td Vaccine (1 - Tdap) [facility] Start: 2002 Adult BMI Screening Adult BMI Screening [facility] Start: 2002 HIV screening HIV Screening [facility] Start: 2002 Tetanus + diphtheria + acellular pertussis vaccine (product) [facility] Start: 1996 Depression Screening Depression Screening [facility] Start: 1996 Tobacco Screening Tobacco Screening [facility] Start: 1990 Pneumococcal vaccination [facility] Start: 1990 [facility] Start: 1989 COVID-19 Vaccine (#1) COVID-19 Vaccine (#1) [facility] Start: 1989 COVID-19 Vaccine (1) COVID-19 Vaccine (1) [facility] Start: 1989 [facility] Start: 03-18-1985 COVID-19 Vaccine (#1) COVID-19 Vaccine (#1) [facility] Start: 1984 Tobacco Counseling Tobacco Counseling [facility] End: 08-14-2023 Alpha-fetoprotein serum ALPHA FETOPROTEIN TUMOR MARKER Lab Routine Iron deficiency anemia, unspecified iron deficiency anemia type Alcoholic cirrhosis, unspecified whether ascites present (HCC) 1 Occurrences starting 08/14/2022 until 08/14/2023 [facility] Comment on above: 1 Occurrences starting [...] EST [facility] Assay of haptoglobin quantitative [employer] Work Phone: End: 03-13-2023 Assay of [...] Routine Dysuria 08/14/2022 12:17 PM EST [employer] Work Phone: Basic metabolic 2000 panel [...] Occurrences starting 11/12/2022 until 11/13/2023, 1 completed [facility] Comment on above: 6 Occurrences starting 11/12/2022 until 11/13/2023, 1 completed CBC panel - Blood by Automated count [facility] End: 08-14-2023 CBC panel - Blood [...] starting 03/13/2022 until 03/13/2023, 1 completed [facility] Work Phone: Comment on above: monthly for 12 Occurrences starting 03/2022 until 03/13/2023, 1 completed End: 11-13-2023 CBC W Auto Differential panel - Blood COMPLETE BLOOD COUNT W/DIFF Lab STAT 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) 6 Occurrences starting 11/12/2022 until 11/13/2023, 1 completed [facility] Work Phone: Comment on above: 6 Occurrences starting 11/12/2022 until 11/13/2023, 1 completed Creatine kinase total CREATINE K INASE Lab Routine Muscle soreness Ordered: 08/29/2022 [employer] Work Phone: Comment on above: Ordered: 08/29/2022 ESOPHAGOGASTRODUODEN OSCOPY, GENERAL ANESTHESIA [facility] Hepatic function panel [employer] Work Phone: End: 03-13-2023 Hepatic function [...] 11:58 AM EST [facility] Lactate dehydrogenase ldh [facility] End: 03-13-2023 Lactate dehydrogenase ldh LDH [...] Occurrences starting 11/12/2022 until 11/13/2023, 1 completed [facility] Comment on above: 6 Occurrences starting 11/12/2022 until 11/13/2023, 1 completed Prothrombin time [facility] End: 08-14-2023 Prothrombin time PROTHROMBIN TIME AND INR Lab Routine Iron deficiency anemia, unspecified iron deficiency anemia type Alcoholic cirrhosis, unspecified whether ascites present (HCC) 1 Occurrences starting 08/14/2022 until 08/14/2023 [facility] Comment on above: 1 Occurrences starting 08/14/2022 until 08/14/2023 Prothrombin time PROTHROMBIN IVAN E AND INR Lab Routine Nausea Ordered: 10/27/2022 [employer] Work Phone: Comment on above: Ordered: 10/27/2022 Smooth muscle antibo dy measurement SMOOTH MUSC ATB SCRN & TITR Lab Routine Alcoholic hepatitis without ascites Alcoholic cirrhosis of liver without ascites (HCC) 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) 08/25/2022 12:41 PM EST [facility] Unlisted chemistry procedure MIS CELLANEOUS SEND OUT TEST Lab Routine Alcoholic hepatitis without ascites Alcoholic cirrhosis of liver without ascites (HCC) 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) 08/25/2022 12:41 PM EST [facility] Immunizations Immunization Date Immunization Notes Care Provider Vandana watters 10-27-2022 hepatitis B vaccine, unspecified formulation Marcello Ibanez MD Work Phone: [facility] 08-14-2022 hepatitis B vaccine, adult dosage Saskia Madison ARMAMENT MECH[employer]IC[employer] Work Phone: [facility] 01-08-2021 Moderna Monovalent (12+ yrs) COVID-19 vaccine, mRNA, spike protein, LNP, PF, 100 mcg/0.5 mL ([id number]) Marcello Ibanez MD Work Phone: [facility] 12-11-2020 Moderna Monovalent (12+ yrs) COVID-19 vaccine, mRNA, spike protein, LNP, PF, 100 mcg/0.5 mL ([id number]=[id number]) Marcello Ibanez MD Work Phone: [facility] NEGATED: Highlighted row has not occurred!06-09-2024 influenza virus vaccine, unspecified formulation Mario Evans [facility] NEGATED: Highlighted row has not occurred!08-26-2023 influenza virus vaccine, unspecified formulation Loreta Cummings [facility] Payers Date Payer Category Payer Self-pay [id number] 2023 Private Health Insurance [employer] [id number] 2012 Unknown [id number] 1.13.56.2.7 .[id number] 2012 Unknown [id number] 2.840.1.528462.19 1984 Unknown [id number] .1.655585.3.579.2. 727 1984 Unknown [id number] 2.16840.1.807522.3.579.2. 727 1984 Unknown [id number] 2.16840.1.949185.3.579.2. 727 1984 Unknown [id number] 2.16840.1.978561.3.579.2. 1286 1984 Unknown [id number] 2.16840.1.604534.3.579.2. 1286 1984 Unknown [id number] 2.16.840.1.457136.3.579.2. 6 1984 Unknown [id number] 2.16.840.1.866126.3.579.2. 1285 1984 Unknown [id number] 2.16.840.1.682785.3.579.2. 1285 1984 Unknown [id number] 2.16.840.1.335884.3.579.2. 1984 Unknown [id number] 2.16.840.1.952346.3.579.2. 1984 Unknown [id number] 2.16.840.1.446139.3.579.2. 1984 Unknown [id number] 2.16.840.1.459283.3.579.2 1984 Unknown [id number] 2.16.840.1.166170.3.579.2 1984 Unknown [id number] 2.16.840.1.803665.3.579.2 1984 Unknown [id number] 2.16.840.1.826557.3.579.2 1984 Unknown [id number] 2.16.840.1.502815.3.579.2. 1984 Unknown [id number] 2.16.840.1.766814.3.579.2. 1984 Unknown [id number] 2.16.840.1.790571.3.579.2 1984 Unknown [id number] 2.16.840.1.488965.3.579.2. 1984 Unknown [id number] 2.16.840.1.330462.3.579.2. 1984 Unknown [id number] 2.16.840.1.251762.3.579.2 1984 Unknown [id number] 2.16.840.1.461529.3.579.2 1984 Unknown [id number] 2.16.840.1.717922.3.579.2 1984 Unknown [id number] 2.16.840.1.424052.3.579.2 1984 Unknown [id number] 2.16.840.1.007025.3.579.2 1984 Unknown [id number] 2.16.840.1.956789.3.579.2 1984 Unknown [id number] 2.16.840.1.172780.3.579. 1984 Unknown [id number] 2.16.840.1.167710.3.579.2 1984 Unknown [id number] 2.16.840.1.282931.3.579. 1984 Unknown [id number] 2.16.840.1.463090.3.579.2 1984 Unknown [id number] 2.16.840.1.698445.3.579.2 1984 Unknown [id number] 2.16.840.1.326265.3.579.2 1984 Unknown [id number] 2.16.840.1.015385.3.579.2 1984 Unknown [id number] 2.16.840.1.562449.3.579.2 1984 Unknown [id number] 2.16.840.1.357269.3.579.2 1984 Unknown [id number] 2.16.840.1.552430.3.579.2 1984 Unknown [id number] 2.16.840.1.912911.3.579.2. 727 1984 Unknown [id number] 2.16.840.1.610839.3.579.2. 727 1984 Unknown [id number] 2.16.840.1.556391.3.579.2. 727 1984 Unknown [id number] 2.16.840.1.368598.3.579.2. 727 1984 Unknown [id number] 2.16.840.1.322330.3.579.2. 727 1984 Unknown [id number] 2.16.840.1.508260.3.579.2. 727 1984 Unknown [id number] 2.16.840.1.406963.3.579.2. 727 1984 Unknown [id number] 2.16.840.1.985205.3.579.2. 727 1984 Unknown [id number] 2.16.840.1.693675.3.579.2. 1259 Social History Date Type Detail Facility Tobacco Tobacco smoking consumption unknown [facility] Comment on above: daily chew pt alvinies Start: 12-30-2023 End: 05-12-2024 Sex Assigned At Male [facility] Start: 1985 [facility] Tobacco smoking consumption unknown [facility] Start: 08-14-2022 End: 12-21-2024 Tobacco smoking status [facility] Comment on above: quit cigarettes 9 ye arsago cherry, quit 9 years ago Start: 09-07-2002 End: 09-17-2008 History of tobacco use Current smoker [facility] Start: 09-07-2002 End: 09-17-2008 History of tobacco use Cigarette Smoker [facility] Start: 08-14-2022 End: 04-21-2024 Tobacco use and exposure [facility] of smokeless tobacco [facility] History of tobacco use Chews Tobacco [facility] Start: 08-05-2022 End: 12-16-2022 Exposure to SARS-CoV-2 (event) Not sure [facility] Start: 08-19-2022 End: 08-29-2022 Exposure to SARS-CoV-2 (event) Unable to assess [facility] Work Phone: Tobacco smoking status [facility] Tobacco smoking status Smokeless tobacco user within last 30 days [facility] Comment on above: quit cigarettes 9 ye ken carey, quit 9 years ago Start: 12-30-2023 Alcohol intake Current drinke r of alcohol (finding) [facility] Start: 12-30-2023 End: 05-12-2024 Alcohol intake [facility] Start: 12-30-2023 Tobacco Comment Once every cou ple of weeks [facility] Within the last year , have [...] smoking stat us NHIS Never smoked tobacco [facility] Start: 04-14-2024 Tobacco use and exposure Former smokeless tobacco user [facility] Start: 04-14-2024 Alcoholic beverage intake Defer [facility] History of tobacco use Snuff User [facility] Start: 04-21-2024 End: 05-12-2024 Alcoholic beverage intake Ex-drinker (finding) [facility] Start: 04-21-2024 Tobacco Comment 2 tins per week [facility] Start: 04-21-2024 Alcohol Comment quit 2020 [facility] Start: 12-19-2009 Sex Male (finding) [facility] Medical Equipment Procedure Code Equipment Code [...] and able to swallow. [Order 4 End] [id number] Start: 01-17-2022 Functional Status Date Assessment Result Facility 01-12-2025 Functional Status N/A [facility] 01-03-2025 Functional Status N/A [facility] 12-20-2024 Functional Status N/A [facility] 11-21-2024 Functional Status N/A [facility] 11-18-2024 Functional Status N/A [facility] 10-26-2024 Functional Status N/A [facility] 10-05-2024 Functional Status N/A [facility] 08-19-2024 Functional Status N/A [facility] 06-09-2024 Functional Status N/A [facility] 05-12-2024 Functional Status N/A [facility] 04-29-2024 Functional Status N/A [facility] 03-17-2024 Functional Status No [facility] 01-27-2024 Functional Status N/A [facility] 12-23-2023 Functional Status N/A [facility] 12-11-2023 Functional Status No [facility] 12-11-2023 Functional Status [facility] 11-11-2023 Functional Status N/A [facility] 10-28-2023 Functional Status N/A [facility] 09-21-2023 Functional Status N/A [facility] 09-01-2023 Functional Status N/A [facility] 08-26-2023 Functional Status N/A [facility] 07-24-2023 Functional Status N/A [facility] 06-19-2023 Functional Status N/A [facility] 03-22-2023 Functional Status N/A [facility] 02-18-2023 Functional Status N/A [facility] 02-17-2022 Functional Status N/A [facility] Clinical Notes 12-07-2019 to 01-24-2025 Kenn Hickey, [...] HPI MEDICATIONS: No current outpatient medications EDUCATION/VOCATION/SOCIAL: [place] language [place]ian. Completed high school education without any academic [...] Please contact me with any questions at [phone]. documented in this encounter [facility] 01-12-2025 Evaluation + Plan note Extrac shawn [...] had about 50% relief at the 6-hour nad[place]. He feels that this was beneficial enough [...] Appointment Date:04/07/2025 08:40:00 AM Scheduled Provider:Vic Carrion Location:[facility] Appointment Type: Open Appointment Date:09/28/2025 02:40:00 PM Scheduled Provider:Kavon uL DO [facility] Type:ONC Office Visit 20 (FT) Future [...] B12 Level 09/25/25 Radiology* US Liver 05/08/25 [facility] 05-08-2025 NoteConsultation Note Patient is presenting [...] call with any questions or concerns that arise.[facility] HospitalComment on above:Result Comment: Electronically Signed By: Evelio Carr DO\.br\Date and Time Signed: 01/12/25 09:45 [id number] Evaluation + Plan noteExtracted from: Title:Right ultrasound-guide [...] Date:01/12/2025 08:15:00 AM Scheduled Provider:Evelio Carr DO Location:[facility] Appointment Type:Pain Management - Follow Up (FT) Appointment Date:04/07/2025 08:40:00 AM Scheduled Provider:Vic Carrion Location:[facility] Appointment Type:FM Open Appointment Date:09/28/2025 02:40:00 PM Scheduled Provider:Kavon Lu DO [facility] Appoint[facility] Type:ONC Office Visit 20 (FT) Future [...] B12 Level 09/25/25 Radiology* US Liver 05/08/25 [facility] 04-29-2025 NoteOperative Report Diagnosis: G57.80, disorders [...] Right diagnostic saphenous nerve block under ultrasound guidance.[facility] HospitalComment on above:Result Comment: Electronically Signed By: Evelio Carr DO.br\Date and Time Signed: 01/03/25 11:55 [id number] NotePatient Education Cardiovascular Hypertension, Adult Hypertension is [...] Keep all follow-up visits. Medicines ??? Take gzvh-rot-yszmyys and prescription medicines only as told by [...] ??? Hypertension is a (more content not included)...[facility] 12-20-2024 Evaluation + Plan noteExtracted from: [...] Appointment Date:12/21/2024 08:20:00 AM Scheduled Provider:Vic Carrion Location:[facility] Appointment Type: Open Appointment Date:04/07/2025 08:40:00 AM Scheduled Provider:Vic Carrion Location:[facility] Appointment Type: Open Appointment Date:09/28/2025 02:40:00 PM [...] B12 Level 09/25/25 Radiology* US Liver 05/08/25 [facility] 04-15-2025 NoteConsultation Note Patient: WILL RALPH [...] BID, # 180 tab(s), Refills(s) 3, Pharmacy: [facility], 170, cm, 10/05/24 9:01:00 EST, Height/Length Dosing, 78.5, kg, 10/05/24 9:11:00 EST, Weight Dosing Narcan 4 mg/0.1 mL nasal spray: 4 mg, Nasal, As Directed, for suspected overdose symptoms, # 1 kit(s), Refills(s) 0, Pharmacy: [facility], 170, cm, 10/05/24 9:01:00 EST, Height/LengthDosing, 78.5, kg, 10/05/24 9:11:00 EST, Weight Dosing Zofran ODT 4 mg Tab: 4 mg = 1 tab(s), Oral, TID, PRN Nausea, # 60 tab(s), Refills(s) 0, Pharmacy: [id number], 170, cm, 05/12/24 15:39:00 EDT, Height/Length Dosing, 73, kg, 05/12/24 15:39:00 EDT, Weight Dosing oxyCODONE 5 mg Tab: 0.5 tab, Oral, q6hr, PRN for pain, for leg pain- severe pain only, # 28 tab(s),Refills(s) 0, Pharmacy: [facility] #[facility], 170, cm, 10/05/24 9:01:00 EST, Height/Length Dosing, 78.5, kg, 10/05/24 9:11:00 EST, Weight Dosing spironolactone 50 mg Tab: 50 mg = 1 tab(s), Oral, Daily, X 90 day(s), # 90 tab(s), Refills(s) 3, Pharmacy: [facility] #37, 170, cm, 11/21/24 9:32:00 EDT, Height/Length Dosing, 77.5, kg, 11/21/24 9:32:00 EDT, Weight Dosing Documented Medications Documented Misc DME Prescription: See Instructions, [place] SAP Dressing 4 x 4 dressing Misc DME Prescription: See Instructions, LiquidIV hydration Misc DME Prescription: See Instructions, Muscle & joint balm CBD 880mg furosemide 20 mg Tab: = 1 tab(s), Oral, Daily, PRN Edema, Refills(s) 0 magnesium citrate: Oral, Refill(s) 0, Constipation Problem list: All Problems Thrombocytopenia / SNOMED CT 173433764 / Confirmed Elevated INR / SNOMED CT 1903780584 / Confirmed Smokeless tobacco use / SNOMED CT 8082223380 / Confirmed Hypokalemia / SNOMED CT 65437212 / Confirmed Elevated fasting glucose / SNOMED CT 033461366 / Confirmed Anemia / SNOMED CT 712857448 / Confirmed Alcohol use disorder in remission / SNOMED CT 62186358 / Confirmed Liver cirrhosis, alcoholic / SNOMED CT 3481177433 / Confirmed Venous ulcer of right leg / SNOMED CT 4098107377 / Confirmed Esophageal varices / SNOMED CT 58630119 / Confirmed Dependent edema / SNOMED CT 774945076 / Confirmed Varicose veins of legs / SNOMED CT 331630091 / Confirmed Portal venous hypertension / SNOMED CT 02785019 / Confirmed HTN (hypertension) / SNOMED CT 5254121323 / Confirmed Headache / SNOMED CT 78799523 / Confirmed Nausea / SNOMED CT 0445376357 / Confirmed Cirrhosis / SNOMED CT 36551458 / Confirmed Tobacco user / SNOMED CT 886874351 / Confirmed 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 Severe back pain / SNOMED CT 056711320 / Confirmed Diarrhea / SNOMED CT 785699818 / Confirmed Cholelithiases / SNOMED CT 855593941 / Confirmed Epigastric pain / SNOMED CT 047988037 / Confirmed Vitamin D deficiency / SNOMED CT 54357362 / Confirmed Abnormal stress test / SNOMED CT 6167944010 / Confirmed Iron deficiency anemia / SNOMED CT 689504860 / Confirmed Superficial thrombophlebitis of leg / SNOMED CT 21815503 / Confirmed Elevated liver enzymes / SNOMED CT 8815285733 / Confirmed Hemolytic anemia / SNOMED CT 248622196 / Confirmed Cellulitis of right leg / SNOMED CT 890839982179807 / Confirmed BMI 26.0-26.9,adult / SNOMED CT 8277854920 (more content not included)...[facility] HospitalComment on above:Result Comment: Electronically Signed By: Sadie Loco PA-C\.chidi\Date and Time Signed: 12/20/24 08:50 [id number] Evaluation + Plan noteExtracted from: Title:Pain Managment [...] Appointment Date:04/07/2025 08:40:00 AM Scheduled Provider:Vic Carrion Location:[facility] Appointment Type:FM Open Appointment Date:09/28/2025 02:40:00 PM [...] B12 Level 09/25/25 Radiology* US Liver 05/08/25 [facility] 03-17-2025 NoteConsultation Note Patient: WILL RALPH [...] BID, # 180 tab(s), Refills(s) 3, Pharmacy: [facility], 170, cm, 10/05/24 9:01:00 EST, Height/Length Dosing, 78.5, kg, 10/05/24 9:11:00 EST, Weight Dosing Narcan 4 mg/0.1 mL nasal spray: 4 mg, Nasal, As Directed, for suspected overdose symptoms, # 1 kit(s), Refills(s) 0, Pharmacy: [facility] #[facility], 170, cm, 10/05/24 9:01:00 EST, Height/LengthDosing, 78.5, kg, 10/05/24 9:11:00 EST, Weight Dosing Zofran ODT 4 mg Tab: 4 mg = 1 tab(s), Oral, TID, PRN Nausea, # 60 tab(s), Refills(s) 0, Pharmacy: [facility] #[id number], 170, cm, 05/12/24 15:39:00 EDT, Height/Length Dosing, 73, kg, 05/12/24 15:39:00 EDT, Weight Dosing gabapentin 600 mg Tab: 1,200 mg = 2 tab(s), Oral, TID, X 30 day(s), # 180 tab(s), Refills(s) 0, Pharmacy: [facility], 170, cm, 10/26/24 10:30:00 EST, Height/Length Dosing, 78.9, kg, 10/26/24 10:30:00 EST, Weight Dosing oxyCODONE 5 mg Tab: 0.5 tab, Oral, q6hr, PRN for pain, for leg pain- severe pain only, # 28 tab(s),Refills(s) 0, Pharmacy: [facility] #[facility], 170, cm, 10/05/24 9:01:00 EST, Height/Length Dosing, 78.5, kg, 10/05/24 9:11:00 EST, Weight Dosing spironolactone 50 mg Tab: 50 mg = 1 tab(s), Oral, Daily, # 90 tab(s), Refills(s) 3, Pharmacy: [facility] #[id number], 170, cm, 12/23/23 11:10:00 EDT, Height/Length Dosing, 70.3, kg, 12/23/23 11:10:00 EDT, Weight Dosing Documented Medications Documented Misc DME Prescription: See Instructions, [place] SAP Dressing 4 x 4 dressing Misc DME Prescription: See Instructions, LiquidIV hydration Misc DME Prescription: See Instructions, Muscle & joint balm CBD 880mg furosemide 20 mg Tab: = 1 tab(s), Oral, Daily, PRN Edema, Refills(s) 0 magnesium citrate: Oral, Refill(s) 0, Constipation Problem list: All Problems Thrombocytopenia / SNOMED CT 119169599 / Confirmed Elevated INR / SNOMED CT 3076103185 / Confirmed Smokeless tobacco use / SNOMED CT 6198505439 / Confirmed Hypokalemia / SNOMED CT 11398378 / Confirmed Elevated fasting glucose / SNOMED CT 783465863 / Confirmed Anemia / SNOMED CT 352570965 / Confirmed Alcohol use disorder in remission / SNOMED CT 67224657 / Confirmed Liver cirrhosis, alcoholic / SNOMED CT 9930457233 / Confirmed Venous ulcer of right leg / SNOMED CT 9381455951 / Confirmed Esophageal varices / SNOMED CT 23740669 / Confirmed Dependent edema / SNOMED CT 957981228 / Confirmed Varicose veins of legs / SNOMED CT 368358531 / Confirmed Portal venous hypertension / SNOMED CT 18755090 / Confirmed HTN (hypertension) / SNOMED CT 4592601253 / Confirmed Headache / SNOMED CT 13219087 / Confirmed Nausea / SNOMED CT 7377419965 / Confirmed Cirrhosis / SNOMED CT 61344834 / Confirmed Tobacco user / SNOMED CT 566985386 / Confirmed Megaloblastic anemia / SNOMED CT 48889141 / Confirmed Severe back pain / SNOMED CT 954546416 / Confirmed Diarrhea / SNOMED CT 635298341 / Confirmed Cholelithiases / SNOMED CT 185399832 / Confirmed Epigastric pain / SNOMED CT 761082379 / Confirmed Vitamin D deficiency / SNOMED CT 79220014 / Confirmed Abnormal stress test / SNOMED CT 6158481471 / Confirmed Iron deficiency ane (more content not included)...[facility] Comment on above:Result Comment: Electronically Signed By: Sadie Loco PA-C\.br\Date and Time Signed: 11/21/24 08:59 [id number] NotePatient Education Orthopedics How to Use Cold [...] provider. Document Revised: 07/10/2021 Document Reviewed: 07/10/2021 [employer] Patient Education ? 2023 [employer] Acute Pain, Adult Acute pain is [...] these instructions at home: Medicines ??? Take lwfd-pqd-lceezhz and prescription medicines only as told by [...] Do not take othe (more content not included)...[facility] 11-18-2024 NoteProgress Note-Physician Patient: WILL RALPH Age: 39 years Sex: Male : 1985 Associated Diagnoses: None Author: Josiane Chin MD Postoperative Information Postoperative disposition: Postoperative disposition: To PACU. Optimetrix number: Optimetrix number [id number]. Anesthetic utilized: General. Health Status Allergies: Allergic [...] Discharge when meets criteria ( To home ).[facility] HospitalComment on above:Result Comment: Electronically Signed By: [...] Pre-operative Note 2022 Author:Josiane Dominguez Date:11/18/24 Plan [place] [employer] (ASA) physical status classification: Class III. Anesthetic Preoperative Plan: Anesthesia General. Future Appointments Appointment Date:11/21/2024 08:30:00 AM Scheduled Provider:Sadie Loco PA-C Location:[facility] Appointment Type:Pain Management - Follow Up (FT) Appointment Date:11/21/2024 09:15:00 AM Scheduled Provider:Mario Evans MD Location:[facility] Appointment Type:BADH Follow Up Appointment [...] B12 Level 09/25/25 Radiology* US Liver 05/08/25 [facility] 03-14-2025 Hospital Discharge instructions Patient Education [...] what activities are safe for you. Take hzrh-vta-kspdjmn and prescription medicines only as told by [...] provider. Document Revised: 12/03/2022 Document Reviewed: 12/03/2022 [employer] Patient Education 2023 Reactivity. [facility] 03-14-2025 NotePatient Education - Text Gastroenterology [...] activities are safe for you. ??? Take zogw-cuf-unmjvnm and prescription medicines only as told by [...] provider. Document Revised: 12/03/2022 Document Reviewed: 12/03/2022 [employer] Patient Education ? 2023 Reactivity.[facility] 11-18-2024 NoteEndoscopic Procedure Report - Other [...] -Repeat EGD in 1 year of EV [facility]Comment [facility]:Result Comment: Electronically Signed By: Carrol MULTANI, Mario Xiong\.chidi\Date and Time Signed: 11/18/24 09:01 EDTOther Comment: Missing Attachment - attachment storage system not supported [id number] Can be viewed in source systemMissing Attachment - attachment storage system not supported [id number] Can be viewed insource systemMissing Attachment - attachment storage system not supported [id number] Can be viewed in source systemMissing Attachment - attachment storage system not supported [id number] Can be viewed in source systemMissing Attachment - attachment storage system not supported 6789502 Can be viewed in source systemMissing Attachment - attachment storage system not supported [id number] Can be viewed in source systemMissing Attachment - attachment storage system not supported 9694095 Can be viewed in source systemMissing Attachment - attachment storage system not supported [id number] Can be viewed in source [id number] NoteProgress Note-Physician Patient: WILL RALPH Age: 39 [...] BID, # 180 tab(s), Refills(s) 3, Pharmacy: [facility] #[facility], 170, cm, 10/05/24 9:01:00 EST, Height/Length Dosing, 78.5, kg, 10/05/24 9:11:00 EST, Weight Dosing Narcan 4 mg/0.1 mL nasal spray: 4 mg, Nasal, As Directed, for suspected overdose symptoms, # 1 kit(s), Refills(s) 0, Pharmacy: [facility] #[facility], 170, cm, 10/05/24 9:01:00 EST, Height/LengthDosing, 78.5, kg, 10/05/24 9:11:00 EST, Weight Dosing Zofran ODT 4 mg Tab: 4 mg = 1 tab(s), Oral, TID, PRN Nausea, # 60 tab(s), Refills(s) 0, Pharmacy: [facility] #[id number], 170, cm, 05/12/24 15:39:00 EDT, Height/Length Dosing, 73, kg, 05/12/24 15:39:00 EDT, Weight Dosing gabapentin 300 mg Cap: See Instructions, take per office provided instructions until you are taking2 tablets three times per day, # 120 tab(s), Refills(s) 0, Pharmacy: [facility] #[facility], 170, cm, 10/26/24 10:30:00 EST, Height/Length Dosing, 78.9, kg, 10/26/24 10:3... gabapentin 600 mg Tab: 1,200 mg = 2 tab(s), Oral, TID, X 30 day(s), # 180 tab(s), Refills(s) 0, Pharmacy: [facility] #37, 170, cm, 10/26/24 10:30:00 EST, Height/Length Dosing, 78.9, kg, 10/26/24 10:30:00 EST, Weight Dosing oxyCODONE 5 mg Tab: 0.5 tab, Oral, q6hr, PRN for pain, for leg pain- severe pain only, # 28 tab(s),Refills(s) 0, Pharmacy: [facility] #37, 170, cm, 10/05/24 9:01:00 EST, Height/Length Dosing, 78.5, kg, 10/05/24 9:11:00 EST, Weight Dosing spironolactone 50 mg Tab: 50 mg = 1 tab(s), Oral, Daily, # 90 tab(s), Refills(s) 3, Pharmacy: [facility] #[id number], 170, cm, 12/23/23 11:10:00 EDT, Height/Length Dosing, 70.3, kg, 12/23/23 11:10:00 EDT, Weight Dosing Documented Medications Documented Misc DME Prescription: See Instructions, [place] SAP Dressing 4 x 4 dressing Misc [...] Problems Abnormal stress test / SNOMED CT 7583806282 / Confirmed Alcohol use disorder in remission / SNOMED CT 03760525 / Confirmed Anemia / SNOMED CT 894936217 / Confirmed BMI 26.0-26.9,adult / SNOMED CT 4706020753 / Confirmed Cellulitis of right leg / SNOMED CT 806056708790728 / Confirmed Cholelithiases / SNOMED CT 225871417 / Confirmed Cirrhosis / SNOMED CT 62400473 / Confirmed Dependent edema / SNOMED CT 682372199 / Confirmed Diarrhea / SNOMED CT 265528928 / Confirmed Elevated fasting glucose / SNOMED CT 945945112 / Confirmed Elevated INR / SNOMED CT 9294419004 / Confirmed Elevated liver enzymes / SNOMED CT 9436307335 / Confirmed Epigastric pain / SNOMED CT 182154631 / Confirmed Esophageal varices / SNOMED CT 30772842 / Confi (more content not included)... [facility] HospitalComment on above:Result Comment: Electronically Signed By: [...] BID, # 180 tab(s), Refills(s) 3, Pharmacy: [facility] #37, 170, cm, 10/05/24 9:01:00 EST, Height/Length Dosing, 78.5, kg, 10/05/24 9:11:00 EST, Weight Dosing Narcan 4 mg/0.1 mL nasal spray: 4 mg, Nasal, As Directed, for suspected overdose symptoms, # 1 kit(s), Refills(s) 0, Pharmacy: [facility] #37, 170, cm, 10/05/24 9:01:00 EST, Height/LengthDosing, 78.5, kg, 10/05/24 9:11:00 EST, Weight Dosing Zofran ODT 4 mg Tab: 4 mg = 1 tab(s), Oral, TID, PRN Nausea, # 60 tab(s), Refills(s) 0, Pharmacy: [facility] #[id number], 170, cm, 05/12/24 15:39:00 EDT, Height/Length Dosing, 73, kg, 05/12/24 15:39:00 EDT, Weight Dosing gabapentin 300 mg Cap: See Instructions, take per office provided instructions until you are taking2 tablets three times per day, # 120 tab(s), Refills(s) 0, Pharmacy: [facility] #37, 170, cm, 10/26/24 10:30:00 EST, Height/Length Dosing, 78.9, kg, 10/26/24 10:3... gabapentin 600 mg Tab: 1,200 mg = 2 tab(s), Oral, TID, X 30 day(s), # 180 tab(s), Refills(s) 0, Pharmacy: [facility], 170, cm, 10/26/24 10:30:00 EST, Height/Length Dosing, 78.9, kg, 10/26/24 10:30:00 EST, Weight Dosing oxyCODONE 5 mg Tab: 0.5 tab, Oral, q6hr, PRN for pain, for leg pain- severe pain only, # 28 tab(s),Refills(s) 0, Pharmacy: [facility] #37, 170, cm, 10/05/24 9:01:00 EST, Height/Length Dosing, 78.5, kg, 10/05/24 9:11:00 EST, Weight Dosing spironolactone 50 mg Tab: 50 mg = 1 tab(s), Oral, Daily, # 90 tab(s), Refills(s) 3, Pharmacy: [facility] #[id number], 170, cm, 12/23/23 11:10:00 EDT, Height/Length Dosing, 70.3, kg, 12/23/23 11:10:00 EDT, Weight Dosing Documented Medications Documented Misc DME Prescription: See Instructions, [place] SAP Dressing 4 x 4 dressing Misc [...] list: All Problems Thrombocytopenia / SNOMED CT 911468192 / Confirmed Elevated INR / SNOMED CT 3380444741 / Confirmed Smokeless tobacco use / SNOMED CT 8567549506 / Confirmed Hypokalemia / SNOMED CT 54710344 / Confirmed Elevated fasting glucose / SNOMED CT 519068199 / Confirmed Anemia / SNOMED CT 001905559 / Confirmed Alcohol use disorder in remission / SNOMED CT 74651448 / Confirmed Liver cirrhosis, alcoholic / SNOMED CT 1245441650 / Confirmed Venous ulcer of right leg / SNOMED CT 7682907621 / Confirmed Esophageal varices / SNOMED CT 67359209 / Confirmed Dependent edema / SNOMED CT 885642939 / Confirmed Varicose veins of legs / SNOMED CT 250857385 / Confirmed Portal venous hypertension / SNOMED CT 20655843 / Confirmed HTN (hypertension) / SNOMED CT 4074590902 / Confirmed Headache / SNOMED CT 95071419 / Confirmed Nausea / SNOMED CT 4865170342 / Confirmed Cirrhosis / SNOMED CT 97471973 / Confirmed Tobacco user / SNOMED CT 176768582 / Confirmed Megaloblastic anemia / SNOMED CT 97527522 / Confirmed Severe back pain / SNOMED CT 207672626 / Confirmed Diarrhea / SNOMED CT 169681119 / Confirmed Cholelithiases / SNOMED CT 003627459 / Confirmed Epigastric pain / SNOMED CT 724249323 / Confirmed Vitamin D deficiency / SNOMED CT 17415438 / Confirmed Abnormal stress test / SNOMED CT 9479399554 / Confirmed Iron deficiency anemia / SNOMED CT 666248431 / Confirmed Superfici (more content not included)...[facility] HospitalComment on above:Result Comment: Electronically Signed By: Carrol MULTANI, Mario Xiong\.br\Date and Time Signed: 11/18/24 08:51 [id number] Evaluation + Plan noteExtracted from: Title:chronic pain [...] Date:11/21/2024 09:15:00 AM Scheduled Provider:Mario Evans MD Location:[facility] Appointment Type:BADH Follow Up Appointment Date:04/07/2025 08:40:00 AM Scheduled Provider:Vic Carrion Location:[facility] Appointment Type:FM Open Appointment Date:09/28/2025 02:40:00 PM [...] B12 Level 09/25/25 Radiology* US Liver 11/11/24 [facility] 02-19-2025 NoteConsultation Note Patient is presenting [...] call with any questions or concerns that arise.[facility] HospitalComment on above:Result Comment: Electronically Signed By: Evelio Carr DO.br\Date and Time Signed: 10/26/24 11:30 [id number] Hospital Discharge instructions Patient Education 10/05/2024 09:52:58 Heat Therapy, Sedl-xq-Bihd Heat Therapy Heat therapy can help ease [...] provider. Document Revised: 06/26/2021 Document Reviewed: 06/26/2021 [employer] Patient Education 2023 Reactivity. 10/05/2024 09:52:50 How to Take Your Blood Pressure, Ydjr-rr-Blgb How to Take Your Blood Pressure Blood [...] Follow these instructions at home: Medicines Take vvlf-xxd-yzxrgba and prescription medicines only as told by [...] monitor. You can buy one at a [employer] or online. When choosing one: Choose one with an arm cuff. Choose one that wraps around your upper arm. Only one finger should fit between your arm and the cuff. Do not choose one that measures your blood pressure from your wrist or finger. Where to find more information [place] [employer]: www.heart.org Contact a doctor if: [...] provider. Document Revised: 05/08/2022 Document Reviewed: 05/08/2022 [employer] Patient Education 2023 Reactivity. 10/05/2024 09:52:47 Esophageal Varices Esophageal Varices Esophageal [...] Follow these instructions at home: Medicines Take vgni-fsa-anhvcuy and prescription medicines only as told by [...] provider. Document Revised: 12/11/2020 Document Reviewed: 12/11/2020 [employer] Patient Education 2023 Reactivity. 10/05/2024 09:52:46 Cirrhosis Cirrhosis Cirrhosis is long-term [...] provider before taking any new medicines, including wywg-kkc-xfyrmxm medicines such as NSAIDs. Rest as needed. [...] Document Reviewed: 06/06/2021 Else[employer] Patient Education 2023 Reactivity. Follow Up Care 08/19/2024 16:34:05 With:Rachel ALBERTS, Vic Friedman, [facility], [facility] Address: [address], [address] [facility] [address] [place] [phone] When:Within 6 Month(s) Comments:sooner if needed. keep specialists appointments. [facility] 01-29-2025 NotePatient Education Gastroenterology Esophageal [...] these instructions at home: Medicines ??? Take lgsg-oel-aecuzdx and prescription medicines only as told by [...] provider. Document Revised: 12/11/2020 Document Reviewed: 12/11/2020 [employer] Patient Education ? 2023 Reactivity. Cirrhosis Cirrhosis is long-term (chronic) liver injury. The liver is the body's largest internal organ, and it performs many functions. It converts food into energy, removes toxic material from the blood, makes important proteins, and absor (more content not included)...[facility]01-[facility] NoteOncology Progress Note Chief Complaint Anemia; [...] hemoglovin is 13.9 so will continue to [facility]. No new medicAL issues recently. continues [...] anemia per outside records previously seen at [facility] hematology by Dr. Restrepo [facility], last visit April 2023 Initially treated with 1mg/kg prednisone January 2022 but he did not tolerate this d/t insomnia and agitation, so stopped after 7 days. He was switched to MMF 1000mg BID stopped along with prophylactic Bactrim. He did not feel w (more content not included)...[facility]12-13-[facility] Hospital Discharge instructions Patient Education 08/19/2024 [...] Follow these instructions at home: Medicines Take keki-vvn-wzbrpxs and prescription medicines only as told by [...] provider. Document Revised: 02/06/2022 Document Reviewed: 02/06/2022 [employer] Patient Education 2023 Reactivity. 08/19/2024 17:26:08 Hypertension, Adult Hypertension, Adult High [...] follow-up visits. This is important. Medicines Take bkxw-jxd-bbbozgd and prescription medicines only as told by [...] provider. Document Revised: 07/01/2022 Document Reviewed: 07/01/2022 [employer] Patient Education 2023 Reactivity. 08/19/2024 17:26:07 Form - Blood Pressure Record [...] Dairy Whole or 2% milk, cream, and eylk-qni-fcsk. Whole or full-fat cream cheese. Whole-fat or [...] should avoid. Talk to a dietitian natalie hanies. Where to find more information National Heart, Lung, and Blood [place] (NHLBI): nhlbi.nih.gov [place] [employer] (AHA): heart.org Academy of Nutrition and Dietetics: eatright.org National Kidney Foundation (NKF): kidney.org This information is not intended to replace advice given to you by your health care provider. Make sure you discuss any questions you have with your health care provider. Document Revised: 09/10/2023 Document Reviewed: 09/10/2023 [employer] Patient Education 2023 [employer] 08/19/2024 17:26:03 Esophageal Varices Esophageal Varices [...] Follow these instructions at home: Medicines Take cqvq-djl-drhcemz and prescription medicines only as told by [...] provider. Document Revised: 12/11/2020 Document Reviewed: 12/11/2020 [employer] Patient Education 2023 Reactivity. 08/19/2024 17:26:03 Cirrhosis Cirrhosis Cirrhosis is long-term [...] provider before taking any new medicines, including ylbx-sav-mfbpfxg medicines such as NSAIDs. Rest as needed. [...] provider. Document Revised: 06/06/2021 Document Reviewed: 06/06/2021 kSARIA Patient Education 2023 Reactivity. Follow Up Care 04/29/2024 10:12:47 With:Johanny Gutierrez Address: When:Within 3 Day(s) [facility] 12-13-2024 NotePatient Education Cardiovascular Hypertension, [...] one 12 oz bottle (more content not included)...[facility]09-05-2024 Evaluation + Plan note* Assessment & Plan Note - Radha Bertrand MD - 05/12/2024 10:03 AM EDTAssociated Problem(s): Lymphedema we have ruled out AV malformation with the angiogram and there is no clear AV fistula, To me this is more available lymphedema I am referring him for complex decongestive therapy [facility]09-05-2024 Miscellaneous Notes* Assessment & Plan Note - Radha Bertrand MD - 05/12/2024 10:03 AM EDTAssociated Problem(s): Lymphedema we have ruled out AV malformation with the angiogram and there is no clear AV fistula, To me this is more available lymphedema I am referring him for complex decongestive therapy [facility] History of Present illness Narrative* Radha Bertrand MD - 05/12/2024 9:30 AM EDT Images from the original note were not included. To: Loreta Cummings APRN-FRENCH BINDING FOLDER HPI: Will Ralph is a 38 y.o. [...] 04/26/2024 Performed by Radha Bertrand MD at [facility] SPECIAL PROC ESOPHAGOGASTRODUODENOSCOPY W/ BANDING 11/2023 [facility] LEG SURGERY Left 2022 calf I/D [...] Resource Strain: High Risk (02/27/2023) Received from [facility] Overall Financial Resource Strain (CARDIA) Difficulty of Paying Living Expenses: Very hard Food Insecurity: No Food Insecurity (05/12/2024) Hunger Screening Food Insecurity - Worry: Never True Food Insecurity - Inability: Never True Transportation Needs: No Transportation Needs (02/27/2023) Received from [facility] PRAPARE - Transportation Lack of Transportation (Medical): No Lack of Transportation (Non-Medical): No Physical Activity: Sufficiently Active (02/27/2023) Received from [facility] Exercise Vital Sign Days of Exercise per Week: 7 days Minutes of Exercise per Session: 120 min Stress: Stress Concern Present (02/27/2023) Received from [facility] [place] of Occupational Health - Occupational Stress Questionnaire Feeling of Stress : Very much Social Connections: Socially Isolated (02/27/2023) Received from [facility] Social Connection and Isolation Panel [NHANES] Frequency of Communication with Friends and Family: More than three times a week Frequency of Social Gatherings with Friends and Family: Patient declined Attends Orthodoxy Services: Never Active Member of Clubs or Organizations: No Attends Club or Organization Meetings: Never Marital Status: Never Interpersonal Safety: Not At Risk (02/27/2023) Received from [facility] Humiliation, Afraid, Rape, and Kick questionnaire Fear of Current or Ex-Partner: No Emotionally Abused: No Physically Abused: No Sexually Abused: No Housing Instability: High Risk (02/27/2023) Received from [facility] Housing Stability Vital Sign Unable to Pay [...] you for your understanding. [facility] NoteOncology Progress Note Chief Complaint Anemia; no [...] anemia per outside records previously seen at [facility] hematology by Dr. Tanvir Castillo Black, [...] hemolysis currently. Macrocytosis is (more content not included)...[facility]08-23-2024 Hospital Discharge instructions Patient Education 04/29/2024 [...] Follow these instructions at home: Medicines Take nlzj-hcd-qywedpx and prescription medicines only as told by [...] provider. Document Revised: 02/06/2022 Document Reviewed: 02/06/2022 kSARIA Patient Education 2022 Reactivity. 04/29/2024 10:25:38 Nausea, Adult Nausea, Adult Nausea [...] water added (diluted fruit juice). Eat bland, djgp-fl-dalbqv foods in small amounts as you are able. These foods include bananas, applesauce, rice, lean meats, toast, and crackers. Avoid drinking fluids that contain a lot of sugar or caffeine, such as energy drinks, sports drinks, and soda. Avoid alcohol. Avoid spicy or fatty foods. General instructions Take cqvu-pnr-tpfbxci and prescription medicines only as told by your health care provider. Rest at home while you recover. Drink enough fluid to keep your urine pale yellow. Breathe slowly and deeply when you feel nauseous. Avoid smelling things that have strong odors. Wash your hands often using soap and water for at least 20 seconds. If soap and water are not available, use hand clutch operator. Make sure that everyone in your household [...] recommendations for eating and drinking and take nvsc-qsa-hqnxvoo and prescription medicinesonly as told by your [...] provider. Document Revised: 02/28/2022 Document Reviewed: 02/28/2022 kSARIA Patient Education 2022 Reactivity. 04/29/2024 10:25:33 Smokeless Tobacco Information, Teen Smokeless [...] the free quitSTART lauren. Hotlines, such as 7-534-PWFU-NOW ( ). Where to find more information You can learn more about the risks of using smokeless tobacco and the benefits of quitting from these sources: Centers for Disease Control and Prevention: cdc.gov National [place] on Drug Abuse: avery.nih.gov [place] Academy of Pediatrics: healthychildren.org [place] Cancer Society: cancer.org Contact a health care [...] provider. Document Revised: 05/21/2022 Document Reviewed: 05/21/2022 kSARIA Patient Education 2022 Reactivity. 04/29/2024 10:25:29 Peripheral Edema Peripheral Edema Peripheral [...] by your health care provider. Medicines Take rsgl-ajk-sgbwrzb and prescription medicines only as told by [...] provider. Document Revised: 04/28/2022 Document Reviewed: 04/28/2022 kSARIA Patient Education 2022 Reactivity. 04/29/2024 10:25:24 Anemia Anemia Anemia is a [...] spleen. Follow these instructions at home: Take uohm-zdr-hiqkcgt and prescription medicines only as told by [...] provider. Document Revised: 11/17/2022 Document Reviewed: 11/17/2022 kSARIA Patient Education 2022 Reactivity. 04/29/2024 10:25:22 DASH Eating Plan DASH Eating [...] Dairy Whole or 2% milk, cream, and fcrw-yth-yrpq. Whole or full-fat cream cheese. Whole-fat or [...] more information National Heart, Lung, and Blood [place]: www.nhlbi.nih.gov [place] Heart Association: www.heart.org Academy of Nutrition and [...] provider. Document Revised: 07/27/2020 Document Reviewed: 07/27/2020 kSARIA Patient Education 2022 Reactivity. 04/29/2024 10:25:19 Esophageal Varices Esophageal Varices Esophageal [...] Follow these instructions at home: Medicines Take zwko-ehf-nkbxnbo and prescription medicines only as told by [...] provider. Document Revised: 12/11/2020 Document Reviewed: 12/11/2020 kSARIA Patient Education 2022 Reactivity. 04/29/2024 10:25:18 Cirrhosis Cirrhosis Cirrhosis is long-term [...] provider before taking any new medicines, including bbws-qiv-wjkkcwj medicines such as NSAIDs. Rest as needed. [...] provider. Document Revised: 06/06/2021 Document Reviewed: 06/06/2021 kSARIA Patient Education 2022 Reactivity. 04/29/2024 10:25:16 Thrombophlebitis Thrombophlebitis Thrombophlebitis is a [...] Follow these instructions at home: Medicines Take rqmn-ywh-qxbinjd and prescription medicines only as told by [...] provider. Document Revised: 02/17/2022 Document Reviewed: 02/17/2022 kSARIA Patient Education 2022 Reactivity. Follow Up Care 01/27/2024 11:04:00 With:Loreta Padilla FAM, MED Address: [address] [place] [address], [facility] [place] [phone]- When:Within 3 Month(s) Comments:f/u labs, HTN, cirrhosis, vascular disease [facility] 08-23-2024 NotePatient Education Cardiovascular Thrombophlebitis [...] these instructions at home: Medicines ? Take jcyq-jsv-aulbwjk and prescription medicines only as told by [...] tobacco. These products incl (more content not included)...[facility]08-15-2024 Instructions * Pre-Procedure Instructions - Marlin Tierney RN - 04/21/2024 2:45 PM EDT Your surgery/procedure is scheduled at [facility] on 04/26/2024 at 10:45 Arrival Time 8:45 [facility] Address: [address] [place] [address] Park in P1 Parking lot located on [facility]. Report to the Entrance B. Check in at the information desk the surgery. The waiting room located on the second floor. If you have any questions prior to surgery, please call Pre-Admission Clinic at [phone] between 7:30 am and 4:30 pm Thursday through Thursday. If you have questions the morning of surgery, please call the Pre-op Department at [phone]. Notify your SURGEON if you develop any [...] piercings ,hair extensions that contain metal, nail luxembourger, make-up, and contact lens. You may brush [...] RIGHTS AND RESPONSIBILITIES As a patient at [facility], you have the right to: Receive medical care and be informed of who is taking care of you Be treated with dignity and respect Have a family member/digital sales representative of choice and your physician notified of your admission Receive information and actively participate in decisions about your care and treatment Refuse care, treatment and services Decide who may provide your support and speak for you Access jehovah's witness and spiritual services Participate in ethical issues [...] of hospital charges and payment methods Patient/patient digital sales representative responsibilities are to: Provide information about [...] and report for surgery in clean clothes. [facility]08-15-2024 Miscellaneous Notes* Pre-Procedure Instructions - Marlin Tierney RN - 04/21/2024 2:45 PM EDT Your surgery/procedure is scheduled at [facility] on 04/26/2024 at 10:45 Arrival Time 8:45 [facility] Address: [address] [place] [address] Park in P1 Parking lot located on [facility]. Report to the Entrance B. Check in at the information desk the surgery. The waiting room located on the second floor. If you have any questions prior to surgery, please call Pre-Admission Clinic at [phone] between 7:30 am and 4:30 pm Thursday through Thursday. If you have questions the morning of surgery, please call the Pre-op Department at [phone]. Notify your SURGEON if you develop any [...] piercings ,hair extensions that contain metal, nail luxembourger, make-up, and contact lens. You may brush [...] RIGHTS AND RESPONSIBILITIES As a patient at [facility], you have the right to: Receive medical care and be informed of who is taking care of you Be treated with dignity and respect Have a family member/digital sales representative of choice and your physician notified of your admission Receive information and actively participate in decisions about your care and treatment Refuse care, treatment and services Decide who may provide your support and speak for you Access jehovah's witness and spiritual services Participate in ethical issues [...] of hospital charges and payment methods Patient/patient digital sales representative responsibilities are to: Provide information about [...] surgery in clean clothes. 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, possible intervention [facility] [id number] Miscellaneous Notes* Assessment & Plan Note - Radha Bertrand MD - 04/14/2024 9:26 AM EDTAssociated Problem(s): AVM (arteriovenous malformation) RLE angio, possible intervention [facility] History of Present illness Narrative* Radha Bertrand [...] Resource Strain: High Risk (02/27/2023) Received from [facility] Overall Financial Resource Strain (CARDIA) Difficulty of Paying Living Expenses: Very hard Food Insecurity: No Food Insecurity (04/14/2024) Hunger Screening Food Insecurity - Worry: Never True Food Insecurity - Inability: Never True Transportation Needs: No Transportation Needs (02/27/2023) Received from [facility] PRAPARE - Transportation Lack of Transportation (Medical): No Lack of Transportation (Non-Medical): No Physical Activity: Sufficiently Active (02/27/2023) Received from [facility] Exercise Vital Sign Days of Exercise per Week: 7 days Minutes of Exercise per Session: 120 min Stress: Stress Concern Present (02/27/2023) Received from [facility] [place] of Occupational Health - Occupational Stress Questionnaire Feeling of Stress : Very much Social Connections: Socially Isolated (02/27/2023) Received from [facility] Social Connection and Isolation Panel [NHANES] Frequency of Communication with Friends and Family: More than three times a week Frequency of Social Gatherings with Friends and Family: Patient declined Attends Orthodoxy Services: Never Active Member of Clubs or Organizations: No Attends Club or Organization Meetings: Never Marital Status: Never Interpersonal Safety: Not At Risk (02/27/2023) Received from [facility] Humiliation, Afraid, Rape, and Kick questionnaire Fear of Current or Ex-Partner: No Emotionally Abused: No Physically Abused: No Sexually Abused: No Housing Instability: High Risk (02/27/2023) Received from [facility] Housing Stability Vital Sign Unable to Pay [...] you for your understanding. documented in [facility] encounter[facility] NoteOncology Progress Note Chief Complaint Follow up [...] anemia per outside records previously seen at [facility] hematology by Dr. Tanvir Black, last visit [...] Contact Information Janet PAYNE-MONTY, Ella Polk, ONC [facility] [address] (more content not included)...[facility]06-24-2024 NoteOncology Progress Note Chief Complaint New pt here for Iron deficiency, Pt states that he seen a Hem doctor in [place] about a [address] Mayuri [...] anemia per outside records previously seen at [facility] hematology by Dr. Restrepo [facility], last visit April 2023 Initially [...] smear, haptoglobin, basil, ld (more content not included)...[facility]06-20-2024 Hospital Discharge instructions Follow Up Care 02/25/2024 10:04:03 With:Janet HUERTA, Ella Polk, ONC Address: [address] [phone] When: Unknown Comments:start folic acid 1mg daily- [facility] to [facility], cmp, ldh, reticulocytes, haptoglobin in 1mofollow-up with Dr. Lees in 1mo [facility]05-31-2024 Hospital Discharge instructions Follow Up Care 02/05/2024 13:11:28 With:Janet HUERTA, Ella Polk, ONC Address: [address] [address] [phone] When: Unknown Comments:get records from [facility] hematologyfollow-up in 2-3 weekswill get labs prior to visit [facility]05-22-2024 Hospital Discharge instructions Patient Education 01/27/2024 [...] Follow these instructions at home: Medicines Take efmo-awf-kefromt and prescription medicines only as told by [...] more information Society for Vascular Surgery: vascular.org [place] Heart Association: heart.org National Heart, Lung, and Blood [place]: nhlbi.nih.gov Contact a health care provider if: [...] provider. Document Revised: 02/25/2021 Document Reviewed: 02/25/2021 kSARIA Patient Education 2022 Reactivity. 01/27/2024 11:32:41 Iron Deficiency Anemia, Adult Iron [...] supplement. Medicines to make heavy menstrual flow cake puller. Surgery or additional testing procedures to determine the cause of your anemia. You may need repeat blood tests to determine whether treatment is working. If the treatment does not seem to be working, you may need more tests. Follow these instructions at home: Medicines Take vbrt-ekn-ppreydl and prescription medicines only as told by [...] to keep your urine pale yellow. Take gmoi-esr-jtczalc or prescription medicines. Eat foods that are [...] the cause of your iron deficiency. Take pcvf-ujh-nggviya and prescription medicines only as told by [...] provider. Document Revised: 10/01/2022 Document Reviewed: 10/01/2022 kSARIA Patient Education 2022 Reactivity. 01/27/2024 11:32:38 Peripheral Edema Peripheral Edema Peripheral [...] by your health care provider. Medicines Take bmzm-war-ojuaidq and prescription medicines only as told by [...] provider. Document Revised: 04/28/2022 Document Reviewed: 04/28/2022 kSARIA Patient Education 2022 [employer] 01/27/2024 11:32:35 Thrombocytopenia Thrombocytopenia Thrombocytopenia is [...] Follow these instructions at home: Medicines Take esnt-tcz-iisietu and prescription medicines only as told by [...] provider. Document Revised: 02/06/2022 Document Reviewed: 02/06/2022 kSARIA Patient Education 2022 Reactivity. 01/27/2024 11:32:32 Esophageal Varices Esophageal Varices Esophageal [...] Follow these instructions at home: Medicines Take oufo-mko-pweqvwu and prescription medicines only as told by [...] provider. Document Revised: 12/11/2020 Document Reviewed: 12/11/2020 kSARIA Patient Education 2022 [employer]. 01/27/2024 11:32:31 Cirrhosis Cirrhosis Cirrhosis is [...] provider before taking any new medicines, including oxhj-suu-rmwngnx medicines such as NSAIDs. Rest as needed. [...] provider. Document Revised: 06/06/2021 Document Reviewed: 06/06/2021 kSARIA Patient Education 2022 Reactivity. 01/27/2024 11:32:30 Alcoholic Liver Disease Alcoholic Liver [...] can provide emotional support and guidance. Take soxu-pwq-gjsihgo and prescription medicines only as told by [...] provider. Document Revised: 06/06/2021 Document Reviewed: 06/06/2021 kSARIA Patient Education 2022 Reactivity. 01/27/2024 11:32:27 DASH Eating Plan DASH Eating [...] Dairy Whole or 2% milk, cream, and adam-mda-qtgs. Whole or full-fat cream cheese. Whole-fat or [...] more information National Heart, Lung, and Blood [place]: www.nhlbi.nih.gov [place] Heart Association: www.heart.org Academy of Nutrition and [...] provider. Document Revised: 07/27/2020 Document Reviewed: 07/27/2020 kSARIA Patient Education 2022 Reactivity. Follow Up Care 10/28/2023 11:01:13 With:John ALBERTS, KEI Perkins, [facility] Address: [address] [address]- When:Within 3 Month(s) Comments:f/u labs, HTN, cirrhosis, gallstones, thrombocytopenia [facility] 04-24-2024 NoteHNO ID: [id number] Author: MARGARET ZUÑIGA MD Service: ? Author Type: Physician Type: Progress Notes Filed: 12/30/2023 16:58 Note Text: PROGRESS NOTES PATIENT NAME: Will Ralph Assessment ASSESSMENT AND PLAN The patient is a 37-year-old male with a known history of alcoholic cirrhosis and portal hypertension. He presents with abdominal pain and abnormal labs from [facility]. These values are visible [...] option of seeing [facility] surgery at [facility] as this would be the best option [...] gallstones. Blood work was also performed through [facility] along with the CT scan. His liver function tests were elevated along with his INR and bilirubin aware of his baseline laboratory values. He does see a canoe inspector final and is being treated for liver failure. [...] naloxone 4 mg/actuation nasal spray (NARCAN) 1 [place] by nasal (alternating) route. oxyCODONE ir (OXYIR) [...] recent labs and imaging results. Margaret Zuñiga [facility]04-24-2024 History of Present illness Narrative* Margaret Zuñiga MD - 12/30/2023 4:50 PM EDT PROGRESS NOTES PATIENT NAME: Will Ralph Assessment ASSESSMENT AND PLAN The patient is a 37-year-old male with a known history of alcoholic cirrhosis and portal hypertension. He presents with abdominal pain and abnormal labs from [facility]. These values are visible [...] the option of seeing HPB surgery at [facility] as this would be the best [...] gallstones. Blood work was also performed through [facility] along with the CT scan. His liver function tests were elevated along with his INR and bilirubin aware of his baseline laboratory values. He does see a canoe inspector final and is beingtreated for liver failure. He [...] naloxone 4 mg/actuation nasal spray (NARCAN) 1 [place] by nasal (alternating) route. oxyCODONE ir (OXYIR) [...] results. Margaret Zuñiga MD documented in this encounterCommunity [facility]04[facility] Hospital Discharge instructions Patient Education 12/23/2023 [...] dietitian for more information. General instructions Take yxkz-cma-myrantp and prescription medicines only as told by [...] provider. Document Revised: 05/30/2022 Document Reviewed: 05/30/2022 kSARIA Patient Education 2022 Reactivity. 12/23/2023 12:42:19 Preventing Vitamin D Deficiency Preventing [...] such as almond, soy, or oat milks. ?Chepachet juice. ?Margarine. When choosing foods, check the [...] including vitamins, herbs, eye drops, creams, and jcwe-tvx-epqysok medicines. Take htuw-duh-qooiezs and prescription medicines only as told by [...] provider. Document Revised: 05/30/2022 Document Reviewed: 05/30/2022 kSARIA Patient Education 2022 Reactivity. 12/23/2023 12:42:17 Nausea, Adult Nausea, Adult Nausea [...] water added (diluted fruit juice). Eat bland, uwuv-nw-flukvl foods in small amounts as you are able. These foods include bananas, applesauce, rice, lean meats, toast, and crackers. Avoid drinking fluids that contain a lot of sugar or caffeine, such as energy drinks, sports drinks, and soda. Avoid alcohol. Avoid spicy or fatty foods. General instructions Take rnag-ncz-bysquie and prescription medicines only as told by your health care provider. Rest at home while you recover. Drink enough fluid to keep your urine pale yellow. Breathe slowly and deeply when you feel nauseous. Avoid smelling things that have strong odors. Wash your hands often using soap and water for at least 20 seconds. If soap and water are not available, use hand clutch operator. Make sure that everyone in your household [...] recommendations for eating and drinking and take zgyo-fwn-ohfrypq and prescription medicinesonly as told by your [...] provider. Document Revised: 02/28/2022 Document Reviewed: 02/28/2022 kSARIA Patient Education 2022 Reactivity. 12/23/2023 12:42:14 Cellulitis, Adult Cellulitis, Adult Cellulitis [...] Follow these instructions at home: Medicines Take uxve-sbz-dyfyisz and prescription medicines only as told by [...] such as antibiotic medicines or antihistamines. Take jhqj-jdi-vsyibme and prescription medicines only as told by [...] provider. Document Revised: 06/04/2022 Document Reviewed: 06/05/2022 kSARIA Patient Education 2022 Reactivity. 12/23/2023 12:42:12 Esophageal Variceal Ligation Esophageal Variceal [...] including vitamins, herbs, eye drops, creams, and osrw-ghv-hqyajws medicines. Any problems you or family members [...] provider tells you to take them. Taking kpcp-uwj-tpmfnkb medicines, vitamins, herbs, and supplements. General information [...] provider. Document Revised: 12/11/2020 Document Reviewed: 12/11/2020 kSARIA Patient Education 2022 Reactivity. 12/23/2023 12:42:09 Nausea and Vomiting, Adult Nausea [...] water added (diluted fruit juice). Eat bland, ywfs-kr-wbydgn foods in small amounts as you are able. These foods include bananas, applesauce, rice, lean meats, toast, and crackers. Avoid fluids that contain a lot of sugar or caffeine, such as energy drinks, sports drinks, and soda. Avoid alcohol. Avoid spicy or fatty foods. General instructions Take qrgi-ozl-henatxr and prescription medicines only as told by your health care provider. Drink enough fluid to keep your urine pale yellow. Wash your hands often using soap and water for at least 20 seconds. If soap and water are not available, use hand clutch operator. Make sure that everyone in your household [...] eating and drinking to prevent dehydration. Take jwsf-pmp-nyubewa and prescription medicines only as told by [...] provider. Document Revised: 02/28/2022 Document Reviewed: 02/28/2022 [employer]AR[employer] Patient Education 2022 Reactivity. 12/23/2023 12:22:45 Gallbladder Eating Plan Gallbladder Eating [...] food, fatty cuts of meat, ice cream, upper sorbian toast, sweet rolls, pizza, cheese bread, foods covered with butter, creamy sauces, or cheese. Fried foods. These include upper sorbian fries, tempura, battered fish, breaded chicken, fried [...] provider. Document Revised: 08/08/2022 Document Reviewed: 08/08/2022 kSARIA Patient Education 2022 [employer] 12/23/2023 12:22:34 Cholecystitis Cholecystitis Cholecystitis is [...] Follow these instructions at home: Medicines Take cxap-kum-eunwwep and prescription medicines only as told by [...] provider. Document Revised: 02/25/2022 Document Reviewed: 02/25/2022 kSARIA Patient Education 2022 Reactivity. 12/23/2023 12:22:32 Cholelithiasis Cholelithiasis Cholelithiasis is a [...] Follow these instructions at home: Medicines Take poao-sxm-ujlkvnk and prescription medicines only as told by [...] important. Where to find more information National [place] of Diabetes and Digestive and Kidney Diseases: [...] provider. Document Revised: 07/16/2020 Document Reviewed: 07/16/2020 [employer]SARIA Patient Education 2022 Reactivity. Follow Up Care 12/14/2023 11:01:47 With:John ALBERTS, KEI Perkins, [facility] Address: [facility] [address], [facility] [address] [place] [id number]- When:Within 1 Month(s) Comments:f/u abd pain, gall stone, cirrhosis, thrombocytopenia, fatigue [facility] 04-07-2024 Evaluation + Plan noteExtracted [...] Oral, q6hr, PRN, Not taking Potassium Chloride (Ege-Pztm-Tek M20) 20 mEq oral tablet, extended release, [...] Information Loreta Cummings In [address], [address] [place] [id number]- [facility] (1) Additional Instructions: Extracted from: Title:Admission H & P Author:Rajesh MULTANI, [facility] Date:12/11/23 38 y/o M admited for [...] Appointment Date:01/27/2024 09:40:00 AM Scheduled Provider:Loreta Padilla Location:[facility] Appointment Type:FM Open Appointment Date:05/12/2024 03:15:00 PM Scheduled Provider:Carrol MULTANI, Mario Xiong Location:[facility] Appointment Type:BADH Follow Up Future Scheduled Tests Laboratory* HgbA1c 07/24/23 * Nkzzo-2-Ndibxnzkzqq 09/01/23 * Ceruloplasmin 09/01/23 * Antimitochondrial Antibody, [...] Acid 07/24/23 * Vitamin B12 Level 07/24/23 [facility]04-07-2024 Hospital Discharge instructions Patient Education 12/13/2023 10:04:57 Drug Allergy, Xsgx-gf-Xerw Drug Allergy A drug allergy is when [...] medicines that you are allergic to. Take bdeo-how-ummemwd and prescription medicines only as told by your doctor. If you were given allergy medicines, do not drive until your health care provider tells you it is safe. If you have hives or a rash: ?Use qpig-tey-qaxpcss medicines as told by your doctor. ?Put [...] provider. Document Revised: 02/03/2022 Document Reviewed: 02/03/2022 kSARIA Patient Education 2022 Reactivity. 12/13/2023 10:04:49 Chronic Back Pain Chronic Back [...] pull them backward. Do not sit or building surveyor one place for long periods of time. [...] prescription pain medicine, or muscle relaxants. Take zgbk-ryg-ifviwmx and prescription medicines onlyas told by your health care provider. Ask your health care provider if the medicine prescribed to you: ?Requires you to avoid driving or using machinery. ?Can cause constipation. You may need to take these actions to prevent or treat constipation: ?Drink enough fluid to keep your urine pale yellow. ?Take zzqd-cco-pcdnpkp or prescription medicines. ?Eat foods that are [...] provider. Document Revised: 10/03/2020 Document Reviewed: 10/03/2020 [employer]SARIA Patient Education 2022 Reactivity. 12/13/2023 10:04:40 Cirrhosis Cirrhosis Cirrhosis is long-term [...] provider before taking any new medicines, including vfwb-vsa-javyxng medicines such as NSAIDs. Rest as needed. [...] provider. Document Revised: 06/06/2021 Document Reviewed: 06/06/2021 kSARIA Patient Education 2022 Reactivity. Follow Up Care 12/11/2023 09:05:25 With:Loreta Cummings Address: [facility] [address] [address]- [facility] (1) When: Unknown [facility]04-07-2024 NoteAdmission and Discharge Information Admitting Physician [...] Oral, q6hr, PRN, Not taking Potassium Chloride (Mps-Cjxb-Gte M20) 20 mEq oral tablet, extended release, [...] Information Loreta Cummings In 0 days [address], [address] [address] (1) [facility]Result Comment: Electronically Signed By: Rajesh MULTANI, Desi\.br\Date and Time Signed: 12/13/23 07:52 [id number] Hospital Discharge instructions Patient Education 11/11/2023 16:42:11 Endoscopy, Care After Procedure [facility] (CUST[facility]) Endoscopy Care After Procedure Please read the instructions outlined below and refer to this sheet in the next few weeks. These discharge instructions provide you with general information on caring for yourself [facility] Your doctor may also give you specific [...] blood. Document Released: 04/07/2005 Document Re-Released: 02/15/2007 [employer] [facility] Patient Information [employer] 11/11/2023 16:42:11 Esophageal Varices Esophageal Varices Esophageal [...] Follow these instructions at home: Medicines Take lnfk-okr-sepbiuh and prescription medicines only as told by [...] provider. Document Revised: 12/11/2020 Document Reviewed: 12/11/2020 [employer]SARIA Patient Education 2022 Reactivity. Follow Up Care 10/09/2023 11:37:06 With:Carrol MULTANI, JOE [place], [facility] Address: [address], [address] [phone] When: Unknown Comments:Office will call to schedule follow up appointment and/or review any pending biopsy resultsCall forany problems. [facility]02-21-2024 Hospital Discharge instructions Patient Education 10/28/2023 [...] of hard liquor (44 mL). Medicines Take lhah-udi-lmkqequ and prescription medicines only as told by [...] Centers for Disease Control and Prevention: www.cdc.gov/heartdisease [place] Heart Association: www.heart.org Summary Heart disease is [...] provider. Document Revised: 04/23/2022 Document Reviewed: 04/23/2022 kSARIA Patient Education 2022 Reactivity. 10/28/2023 15:32:24 Form - Blood Pressure Record [...] provider. Document Revised: 05/08/2022 Document Reviewed: 05/08/2022 kSARIA Patient Education 2022 Reactivity. 10/28/2023 15:32:23 DASH Eating Plan DASH Eating [...] Dairy Whole or 2% milk, cream, and nrmn-lke-rvpn. Whole or full-fat cream cheese. Whole-fat or [...] more information National Heart, Lung, and Blood [place]: www.nhlbi.nih.gov [place] Heart Association: www.heart.org Academy of Nutrition and [...] provider. Document Revised: 07/27/2020 Document Reviewed: 07/27/2020 [employer]SARIA Patient Education 2022 Reactivity. 10/28/2023 15:32:21 Hypertension, Adult Hypertension, Adult High [...] follow-up visits. This is important. Medicines Take zbds-kqq-iopzrwr and prescription medicines only as told by [...] provider. Document Revised: 07/01/2022 Document Reviewed: 07/01/2022 kSARIA Patient Education 2022 Reactivity. 10/28/2023 15:32:19 Alcoholic Liver Disease Alcoholic Liver [...] can provide emotional support and guidance. Take zlxd-gws-kacxqvk and prescription medicines only as told by [...] provider. Document Revised: 06/06/2021 Document Reviewed: 06/06/2021 kSARIA Patient Education 2022 Reactivity. 10/28/2023 15:32:16 Thrombocytopenia Thrombocytopenia Thrombocytopenia is a [...] Follow these instructions at home: Medicines Take cipr-zug-bvtcntc and prescription medicines only as told by [...] provider. Document Revised: 02/06/2022 Document Reviewed: 02/06/2022 kSARIA Patient Education 2022 Reactivity. 10/28/2023 15:32:14 Varicose Veins Varicose Veins Varicose [...] Follow these instructions at home: Medicines Take jvnw-rpr-dvqjjrg and prescription medicines only as told by [...] provider. Document Revised: 02/05/2022 Document Reviewed: 02/05/2022 [employer]SARIA Patient Education 2022 Reactivity. 10/28/2023 15:32:09 Nausea, Adult Nausea, Adult Nausea [...] water added (diluted fruit juice). Eat bland, wkzf-ka-xxqrhk foods in small amounts as you are able. These foods include bananas, applesauce, rice, lean meats, toast, and crackers. Avoid drinking fluids that contain a lot of sugar or caffeine, such as energy drinks, sports drinks, and soda. Avoid alcohol. Avoid spicy or fatty foods. General instructions Take xfpe-kto-tjnyfdv and prescription medicines only as told by your health care provider. Rest at home while you recover. Drink enough fluid to keep your urine pale yellow. Breathe slowly and deeply when you feel nauseous. Avoid smelling things that have strong odors. Wash your hands often using soap and water for at least 20 seconds. If soap and water are not available, use hand clutch operator. Make sure that everyone in your household [...] recommendations for eating and drinking and take vnbn-fde-koucxyh and prescription medicinesonly as told by your [...] Document Reviewed: 02/28/2022 Elsevier Patient Education 2022 Reactivity. [facility] 01-15-2024 Hospital Discharge instructions Follow Up Care 09/21/2023 12:59:46 With:Loreta Padilla FAM, [facility] Address: [address], [facility] [address] [address]- When: Unknown [facility] 12-20-2023 Hospital Discharge instructions Patient [...] products, such as yogurt. General instructions Take mtkl-nij-ygjmbig and prescription medicines only as told by [...] provider. Document Revised: 05/08/2022 Document Reviewed: 05/08/2022 [employer]SARIA Patient Education 2022 Reactivity. 08/26/2023 11:03:00 Stasis Dermatitis Stasis Dermatitis Stasis [...] care provider who specializes in skin diseases (mash filter press operator). How is this treated? This condition may [...] detergents, or perfumes. Medicines Take or use gvor-fuu-eduhdvx and prescription medicines only as told by [...] provider. Document Revised: 11/04/2021 Document Reviewed: 11/04/2021 kSARIA Patient Education 2022 Reactivity. 08/26/2023 11:02:52 Alcoholic Liver Disease Alcoholic Liver [...] can provide emotional support and guidance. Take inwn-tvr-cnkwsjv and prescription medicines only as told by [...] provider. Document Revised: 06/06/2021 Document Reviewed: 06/06/2021 kSARIA Patient Education 2022 Reactivity. 08/26/2023 10:41:25 Incision and Drainage Incision and [...] including vitamins, herbs, eye drops, creams, and lweg-ymo-yhjtcpe medicines. Any problems you or family members [...] provider tells you to take them. Taking jtdw-fkn-mhzcota medicines, vitamins, herbs, and supplements. Tests You [...] provider. Document Revised: 11/27/2022 Document Reviewed: 06/05/2022 kSARIA Patient Education 2022 [employer] 08/26/2023 10:41:21 Stasis Dermatitis Stasis Dermatitis [...] care provider who specializes in skin diseases (mash filter press operator). How is this treated? This condition may [...] detergents, or perfumes. Medicines Take or use qmwz-olo-lherqya and prescription medicines only as told by [...] provider. Document Revised: 11/04/2021 Document Reviewed: 11/04/2021 kSARIA Patient Education 2022 Reactivity. 08/26/2023 10:41:14 Hypokalemia Hypokalemia Hypokalemia means that [...] products, such as yogurt. General instructions Take voar-sxe-pjoltkr and prescription medicines only as told by [...] provider. Document Revised: 05/08/2022 Document Reviewed: 05/08/2022 kSARIA Patient Education 2022 Reactivity. Follow Up Care 07/24/2023 09:02:18 With:Loreta Padilla [facility], [facility] Address: [address], [address] [place] [phone] Business (1) When:Within 2 Month(s) Comments:3 mo f/u for ulcers, liver disease, labs [facility] 11-17-2023 Hospital Discharge instructions Patient [...] provider before taking any new medicines, including yyns-bwy-liuoary medicines such as NSAIDs. Rest as needed. [...] provider. Document Revised: 06/06/2021 Document Reviewed: 06/06/2021 kSARIA Patient Education 2022 Reactivity. 07/24/2023 09:14:01 Heart Disease Prevention Heart Disease [...] of hard liquor (44 mL). Medicines Take svnw-wsc-vkyqwws and prescription medicines only as told by [...] Centers for Disease Control and Prevention: www.cdc.gov/heartdisease [place] Heart Association: www.heart.org Summary Heart disease is [...] provider. Document Revised: 04/23/2022 Document Reviewed: 04/23/2022 kSARIA Patient Education 2022 Reactivity. 07/24/2023 09:13:57 Anemia Anemia Anemia is a [...] spleen. Follow these instructions at home: Take hobo-mzn-bkcyxya and prescription medicines only as told by [...] provider. Document Revised: 07/08/2022 Document Reviewed: 07/31/2020 kSARIA Patient Education 2022 Reactivity. 07/24/2023 09:13:53 Hypokalemia Hypokalemia Hypokalemia means that [...] products, such as yogurt. General instructions Take haiw-zji-mgkhrvs and prescription medicines only as told by [...] provider. Document Revised: 05/08/2022 Document Reviewed: 05/08/2022 kSARIA Patient Education 2022 Reactivity. 07/24/2023 09:13:45 Thrombocytopenia Thrombocytopenia Thrombocytopenia is a [...] Follow these instructions at home: Medicines Take vmvm-qyu-kbtrabc and prescription medicines only as told by [...] provider. Document Revised: 02/06/2022 Document Reviewed: 02/06/2022 kSARIA Patient Education 2022 Reactivity. [facility] 10-13-2023 Hospital Discharge instructions Patient Education 06/19/2023 13:28:07 Insect Bite, Adult, Abpr-ld-Topt Insect Bite, Adult An insect bite can [...] of an anaphylactic reaction may include: Feeling assistant chief engineer the face (flushed). Your face may [...] a day. General instructions Apply or take ebnm-ztz-gnhiqpl and prescription medicines only as told by [...] ?DEET. ?Picaridin. ?Oil of lemon eucalyptus (OLE). ?[id number]. Consider spraying your clothing with a pesticide [...] an anaphylactic reaction. Signs may include: ?Feeling assistant chief engineer the face. ?Itchy, red, swollen areas [...] provider. Document Revised: 05/26/2022 Document Reviewed: 05/26/2022 kSARIA Patient Education 2022 Reactivity. Follow Up Care 06/19/2023 12:16:43 With:Colby Link Address: [address], [address] [facility] [place] [address]- Business (1) When:06/22/2023 12:39:51 Comments:Follow-up with your primary care provider in 3 to 5 days. If symptoms worsen, do not improve, or new symptoms arise please report back to emergency department for further evaluation. [facility]08-18-2023 Evaluation note* Encounter Date Diagnosis Assessment [...] sooner should he deteriorate in any way [facility] [employer] Other 08-15-2023 History of Present illness Narrative* [...] well. Monie Hernandez RN documented in this [id number] History of Present illness Narrative* Gustabo Ritchie [...] 100 %. Gustabo Pittman documented in this [id number] Hospital Discharge instructions Patient Education 03/22/2023 21:57:13 [...] Follow these instructions at home: Medicines Take rkki-tat-hexxwir and prescription medicines only as told by [...] such as antibiotic medicines or antihistamines. Take xmsq-ayt-zgkmyjt and prescription medicines only as told by [...] provider. Document Revised: 06/05/2022 Document Reviewed: 06/05/2022 kSARIA Patient Education 2022 Reactivity. Follow Up Care 03/22/2023 19:36:11 With:THEO BURKS Address:Unknown When:Within 3 Day(s) [facility]07-16-2023 Evaluation + Plan noteExtracted from: Title:ED Note Author:Martin Reese DO Date :03/22/23 Cellulitis (L03.90: Cellulit is, unspecified) Orders: ondansetron, 4 mg = 1 tab(s), Oral, q8hr, PRN Nausea/Vomiting, # 20 tab(s), Refills(s) 0, Pharmacy: [facility] #[id number], 170, cm, 03/22/23 20:14:00 EDT, Height/Length Dosing, [...] day(s), 28 tab(s), Refill(s) 0, [facility] #[id number], 170, cm, 03/22/23 20:14:00 EDT, Height/Length Dosing, [...] Charcoal 03/22/23 * Blood Culture Charcoal 03/22/23 [facility]06-30-2023 Telephone encounter Note* Telephone Encounter - Deborah Gutierrez CPhT - 03/06/2023 8:55 AM EDT A prior authorization has been started for Lidocaine 5% patch PA status can be found under the prescription order in the Medication Tab. History or status of the PA can also be found in Chart Review under Referral tab. [id number] Miscellaneous Notes* Telephone Encounter - Deborah Gutierrez CPhT - 03/06/2023 8:55 AM EDT A prior authorization has been started for Lidocaine 5% patch PA status can be found under the prescription order in the Medication Tab. History or status of the PA can also be found in Chart Review under Referral tab. documented in this [id number] Telephone encounter Note* Telephone Encounter - Nighat Mahmood APRN-CNP - 02/27/2023 5:05 PM EDT Pt had video visit scheduled. Link sent to him, but he never checked in. [employer] Work Phone: [phone] Miscellaneous Notes* Telephone Encounter - Nighat Mahmood [...] Recommendation: n/a Thank you documented in this [id number] Telephone encounter Note* Telephone Encounter - Jordana Stanton RN - 02/27/2023 2:55 PM EDT Called the patient Reminded him of his video visit this ThursdayMarch 03 with Lindsey Mahmood Pt concerned about his leg, he will send a picture to My Chart To his provider Concerned about his infection Notified Lindsey Mahmood [employer] Work Phone: [phone] 770-420206-23-2023 Telephone encounter Note* Telephone Encounter - Tobi Bowen - 02/27/2023 2:36 PM EDT What is the need: call back Situation: Pt states that the doctors office called him stating that they were running behind but he never got a phone call. Please advise Background: Please contact and advise Assessment: Pt contact info is Phone numbers Recommendation: n/a Thank you [id number] Evaluation + Plan noteExtracted from: Title:ED Note Author:Omid PARKER, Xander Field te:02/18/23 Cellulitis of right leg (L03 .115: Cellulitis of right lower limb) Right leg pain (M79.604: Pain in right leg) Orders: clindamycin, 300 mg = 1 cap(s), Oral, q6hr, X 7 day(s), # 28 cap(s), Refills(s) 0, Pharmacy: [facility] #[id number], 170, cm, 02/18/23 7:51:00 EDT, Height/Length Dosing, [...] 15 cap(s), Refills(s) 0, Pharmacy: [facility] #[id number], 170, cm, 02/18/23 7:51:00 EDT, Height/Length Dosing, 77, kg, 02/18/23 7:51:00 EDT, Weight Dosing US LE Venous Duplex Right [facility]06-14-2023 Hospital Discharge instructions Patient Education 02/18/2023 09:31:38 RICE Therapy for Routine Care of Injuries, Jhlm-rx-Ywcm RICE Therapy for Routine Care of Injuries [...] provider. Document Revised: 06/13/2021 Document Reviewed: 06/13/2021 kSARIA Patient Education 2022 Reactivity. 02/18/2023 09:31:38 Musculoskeletal Pain Musculoskeletal Pain Musculoskeletal [...] by mouth or applied to theskin. Take kjxh-cud-thbfqlf and prescription medicines only as told by [...] provider. Document Revised: 12/27/2020 Document Reviewed: 12/05/2020 kSARIA Patient Education 2022 Reactivity. 02/18/2023 09:31:38 Pain Without a Known Cause [...] Follow these instructions at home: Medicines Take udrr-zdr-zwrexsz and prescription medicines only as told by your health care provider. Ask your health care provider if the medicine prescribed to you: ?Requires you to avoid driving or using machinery. ?Can cause constipation. You may need to take these actions to prevent or treat constipation: ? Drink enough fluid to keep your urine pale yellow. ?Take zxwe-awu-hbwdwkl or prescription medicines. ?Eat foods that are [...] the National Suicide Prevention Lifeline at or 522. This is open 24 hours a day. Text the Crisis Text Line at 681907. Summary Pain can occur in any part [...] provider. Document Revised: 04/23/2022 Document Reviewed: 04/23/2022 kSARIA Patient Education 2022 Reactivity. 02/18/2023 09:31:38 Cellulitis, Adult, Esjp-jk-Morr Cellulitis, Adult Cellulitis is a skin infection. [...] Follow these instructions at home: Medicines Take ohzf-gbn-oakxiwr and prescription medicines only as told by [...] provider. Document Revised: 06/05/2022 Document Reviewed: 06/05/2022 kSARIA Patient Education 2022 Reactivity. Follow Up Care 02/18/2023 07:42:07 With:THEO BURKS Address:Unknown When:02/21/2023 09:01:56 Comments:Follow-up with your primary care provider in 3 to 5 days. If symptoms worsen, do not improve, or new symptoms arise please report back to emergency department for further evaluation. [facility]05-16-2023 Surgery Postoperative evaluation and management note* Post-Procedure Note - Brayan Babin MD - 01/20/2023 10:23 AM EDT POST-PROCEDURE NOTE Procedure: Transjugular liver biopsy with pressure measurements Pre-operative Diagnosis: Cirrhosis, diagnostic evaluation Post-operative Diagnosis: Portal hypertension, cirrhosis Attending: Erica Rock MD Human Services Manager: Leon Hernadez MD (attending) Brayan Babin MD [...] of the procedure. Brayan Babin MD Radiology [employer] Work Phone: 1([phone] 276-807405-16-2023 Miscellaneous Notes* Post-Procedure Note - Brayan Babin MD - 01/20/2023 10:23 AM EDT POST-PROCEDURE NOTE Procedure: Transjugular liver biopsy with pressure measurements Pre-operative Diagnosis: Cirrhosis, diagnostic evaluation Post-operative Diagnosis: Portal hypertension, cirrhosis Attending: Erica Rock MD Human Services Manager: Leon Hernadez MD (attending) Brayan Babin MD [...] B27 positive) 2003 Followed with Rheum at [facility] Open fracture of other and unspecified [...] Directives (Living will, health care power of privacy attorney): none Patient Recent Code Status: Prior Code Status For This Procedure: Full Code Dorota Aj MD Radiology documented in this [id number] Surgery Preoperative evaluation and management note* Pre-Procedure [...] B27 positive) 2003 Followed with Rheum at [facility] Open fracture of other and unspecified [...] Directives (Living will, health care power of privacy attorney): none Patient Recent Code Status: Prior Code Status For This Procedure: Full Code Dorota Aj MD Radiology [employer] Work Phone: 1([phone]) 365-939305-08-2023 History of Present illness Narrative* Meka Lucas RN - 01/12/2023 11:11 AM EDT Labs drawn peripherally from right forearm. documented in this [id number] History of Present illness Narrative* Gustabo Ritchie - 01/12/2023 9:55 AM EDT Patient was identified by name and date of . Gustabo Isaak Pittman Body Mass Index is 27.28. Body Surface Area is 1.91 square meters according to the formula of lEi and Eli. Patient at risk for falls:No Falls Risk protocol implemented: No Blood pressure 121/56, pulse 79, temperature 96.6 F (35.9 C), resp. rate 20, height 5' 7 (1.702 m), weight 174 lb 3.2 oz (79 kg), SpO2 100 %. Gustabocarlos eduardo Pittman documented in this [id number] History of Present illness Narrative* April Jewell [...] Gastroenterology Fellow Division of Gastroenterology & Hepatology [facility] 01/12/23, 9:01 AM Associated attestation - [...] Gary MD Division of Gastroenterology & Hepatology [facility] documented in this [id number] Instructions* Patient Instructions* Dejuan Lechuga MD - 12/16/2022 10:23 AM EDT [facility] [phone] [address] [address] Lab tests can be done at a scheduled visit, or by appointment. [facility] [phone] [place] [address] Park in the Outpatient [place] [facility] ([facility] Under the [facility]. Pathology is located in the [facility] [place] of the Outpatient [place] on the 2nd floor.Please fill out the paper form at the front desk attendant then have a seat in the Outpatient Blood Draw Lab (Pathology) waiting area. Hours Thursday 07:00 AM - 05:30 PM Thursday 07:00 AM - 05:30 PM Thursday 07:00 AM - 05:30 PM 07:00 AM - 05:30 PM Thursday 07:00 AM - 05:30 PM [facility] [phone] [place] [address] Follow the overhead sign to [place]: Radiology/X-ray & Lab (right arrow). Check in for testing at the Radiology & Lab Roll Picker window. Hours Thursday 10:00 AM - 02:00 PM Thursday 08:00 AM - 07:30 PM Thursday 08:00 AM - 07:30 PM Thursday 08:00 AM - 07:30 PM 08:00 AM - 07:30 PM Thursday 08:00 AM - 07:30 PM Thursday 08:00 AM - 04:00 PM [facility] Lab [phone] [place] [address] Dellroy at the front desk attendant and you will be directed to the [...] [facility] Lab [phone] [place] [address] Enter through the front door and continue [...] PM Thursday 08:00 AM - 04:00 PM [facility] Lab [phone] [place], [place] [id number] The [facility] is located on the first [...] PM Thursday 07:30 AM - 05:00 PM [facility] [phone] [place] [address] The [facility] is located on the first floor, room A1-4746. Enter through the Emergency doors and follow the signs to Medical Offices , making a right turn. Dellroy at the Registration 1A desk at the end of the hallway, then proceed to the Laboratory on the right. Hours Thursday 07:30 AM - 05:00 PM Thursday 07:30 AM - 05:00 PM Thursday 07:30 AM - 05:00 PM 07:30 AM - 05:00 PM Thursday 07:30 AM - 05:00 PM [facility] Lab [phone] [place], [place] [address] The [facility] is located on the first [...] AM - 05:00 PM documented in this [id number] History of Present illness Narrative* Dejuan Lechuga [...] no previous surgical history on file. Diagnostics: [facility] laboratory/diagnostics reviewed and Outside laboratory/diagnostics reviewed [...] of . Alejabrandy Rolon documented in this [id number] History of Present illness Narrative* Theo Burks MD - 12/15/2022 4:20 PM EDT [facility] Telemedicine Visit CC: Chief Complaint Patient presents with Fall HPI: Patient is a 37 year old cordero with a history of cirrhosis , autoimmune hemolytic anemia who presentsfor the below. 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 OBJECTIVE: Sounds ewll, no acute distress Breathing comfrotably on room air ASSESSMENT AND PLAN: 1. Rib pain Orders & Meds Signed During This Encounter X-ray Ribs Left Unilateral (Routine) lidocaine (LIDODERM) 5 % patch Documentation: Mode: Telephone Patient Patient Work Phone: Patient Cell Preferred phone: [phone] Consent: I confirmed patient understanding of the [...] Burks MD Family Medicine documented in this [id number] Telephone encounter Note* Telephone Encounter - Aleja Rolon - 12/15/2022 9:14 AM EDT Called patient and made appointment with tomorrow [id number] Miscellaneous Notes* Telephone Encounter - Aleja Rolon - 12/15/2022 9:14 AM EDT Called patient and made appointment with tomorrow documented in this [id number] History of Present illness Narrative* Marcello Ibanez [...] Gastroenterology Fellow Division of Gastroenterology & Hepatology [facility] 10/27/22, 10:43 AM * Eze Schilling - 10/27/2022 9:49 AM EST Patient was identified by name and date of . Eze SchillingPatient at risk for falls:No Falls Risk protocol implemented: No documented in this [id number] History of Present illness Narrative* Haley Gary [...] Gastroenterology Fellow Division of Gastroenterology & Hepatology [facility] 10/27/22, 10:43 AM Attending addendum: Suspect [...] Gary MD Division of Gastroenterology & Hepatology [facility] * Eze Schilling - 10/27/2022 9:49 AM EST Patient was identified by name and date of . Eze SchillingPatient at risk for falls:No Falls Risk protocol implemented: No documented in this [id number] History of Present illness Narrative* Haley Gary [...] Gastroenterology Fellow Division of Gastroenterology & Hepatology [facility] 10/27/22, 10:43 AM Attending addendum: Suspect [...] Gary MD Division of Gastroenterology & Hepatology [facility] * Eze Schilling - 10/27/2022 9:49 AM EST Patient was identified by name and date of . Eze SchillingPatient at risk for falls:No Falls Risk protocol implemented: No documented in this [id number] Telephone encounter Note* Telephone Encounter - Tanika [...] and will need rescheduled. Tanika Arias RN [facility] Work Phone: 1(159) 644-535501-14-2023 Miscellaneous Notes* Telephone Encounter - Tanika Arias [...] rescheduled. Tanika Arias RN documented in this [id number] History of Present illness Narrative* Theo Burks MD - 08/29/2022 9:20 AM EST [facility] Telemedicine Visit CC: Chief Complaint [...] surgical history personally reviewed and updated in [place]. OBJECTIVE: There were no vitals taken for this visit. Gen: Sounds well, no acute distress Resp: breathing comfortably ASSESSMENT AND PLAN: 1. Cellulitis, unspecified cellulitis site 2. Muscle soreness Orders & Meds Signed During This Encounter Creatine Kinase Documentation: Mode: Telephone Patient Patient Work Phone: Patient Cell Preferred phone: [phone] Consent: I confirmed patient understanding of the [...] Burks MD Family Medicine documented in this [id number] Instructions* Patient Instructions* Theo Burks MD - 08/25/2022 2:16 PM EST Continue antibiotics for another 7 days Topical antibiotic ointment for left foot Follow up on Thursday Refilled zofran (anti-nausea medication) documented in this [id number] History of Present illness Narrative* Theo Burks MD - 08/25/2022 1:31 PM EST Images from the original note were not included. [facility] Family Medicine Office Visit CC: [...] surgical history personally reviewed and updated in [facility]. OBJECTIVE: BP 132/65 (BP Location: left [...] Burks MD Family Medicine documented in this [id number] History of Present illness Narrative* Abbey Alvarez [...] hepatology clinic for EtOH cirrhosis. Admitted to [facility] ICU for acute alcoholic hepatitis (MDF 43) [...] B27 positive) 2003 Followed with Rheum at [facility] Open fracture of other and unspecified [...] Gastroenterology Fellow Division of Gastroenterology & Hepatology [facility] 08/25/22, 10:44 AM * RositaMaura guzman - 08/25/2022 10:40 AM EST Patient was identified by name and date of . Maura Hilton Patient at risk for falls:No Falls Risk protocol implemented: No documented in this [id number] History of Present illness Narrative* Abbey Alvarez [...] hepatology clinic for EtOH cirrhosis. Admitted to [facility] ICU for acute alcoholic hepatitis (MDF 43) [...] B27 positive) 2003 Followed with Rheum at [facility] Open fracture of other and unspecified [...] Gastroenterology Fellow Division of Gastroenterology & Hepatology [facility] 08/25/22, 10:44 AM * Maura Canela - 08/25/2022 10:40 AM EST Patient was identified by name and date of . Maura Canela Patient at risk for falls:No Falls Risk protocol implemented: No documented in this [id number] History of Present illness Narrative* Abbey Alvarez [...] hepatology clinic for EtOH cirrhosis. Admitted to [facility] ICU for acute alcoholic hepatitis (MDF 43) [...] B27 positive) 2003 Followed with Rheum at [facility] Open fracture of other and unspecified [...] Gastroenterology Fellow Division of Gastroenterology & Hepatology [facility] 08/25/22, 10:44 AM Associated attestation - [...] Gary MD Division of Gastroenterology & Hepatology [facility] * Maura Canela - 08/25/2022 10:40 AM EST Patient was identified by name and date of . Maura Canela Patient at risk for falls:No Falls Risk protocol implemented: No documented in this [id number] Note* Addendum Note - Tanvir Black MD - 08/21/2022 8:52 PM ESTAddended by: TANVIR BLACK on: 08/21/2022 08:52 PM Modules accepted: Orders [id number] Miscellaneous Notes* Addendum Note - Tanvir Black MD - 08/21/2022 8:52 PM ESTAddended by: TANVIR BLACK on: 08/21/2022 08:52 PM Modules accepted: Orders documented in this [id number] History of Present illness Narrative* Tanvir Black MD - 08/16/2022 11:07 AM EST Images from the original note were not included. Reviewed urine C&S. Urine growing klebsiella pneumoniae, with intermediate sensitivity to Macrobid. Culture Positive Culture Report Abnormal >100,000 CFU/ml Klebsiella pneumoniae Resulting Agency: [facility] Susceptibility Klebsiella pneumoniae [facility]AV[facility] Amoxicillin + Clavulanate [...] aware Phone numbers Preferred Tanvir Black MD [facility] [phone] Hematology/Oncology 08/16/2022 . documented in this [id number] Hospital Discharge instructions* Discharge Instructions* Dante French MD - 08/15/2022 3:08 PM EST EMERGENCY DEPARTMENT FOLLOW-UP: Please see your Primary Care Physician at next available appointment for follow up. Please call today or tomorrow to make an appointment. Residents of [facility] may apply for discounts available only to residents of this [facility] by contacting the Eligibility Call Center at [phone]. If you do not have a primary physician please call [phone] for guidance on finding a [facility] provider. PLEASE NOTE: If you are [...] during this visit: None documented in this [id number] History of Present illness Narrative* Nenita Franco [...] B27 positive) 2003 Followed with Rheum at [facility] Open fracture of other and unspecified [...] of . Katie Paniagua documented in this [id number] History of Present illness Narrative* Tanvir Black [...] B27 positive) 2003 Followed with Rheum at [facility] Open fracture of other and unspecified [...] Time Provider Department Center 08/19/2022 8:30 AM [facility] OP ULTRASOUND 2 [facility] US [facility] Radiolog 08/19/2022 1:45 PM [facility] OP ULTRASOUND 2 [facility] US [facility] Radiolog 08/28/2022 10:30 AM Saskia Madison APRN-[facility] 09/19/2022 11:00 AM Saskia Madison APRN-CNP [facility] 11/13/2022 11:30 AM [facility]/13/2022 12:00 PM ONC NURSE [facility] Tanvir Black MD Hematology/Oncology 08/14/22 4:09 PM * Jojo Garcia - 08/14/2022 11:52 AM EST .Patient was identified by name and date of . Jojo Garcia .Patient at risk for falls:No Falls Risk protocol implemented: No documented in this [id number] History of Present illness Narrative* Emily Dunn, RN - 08/14/2022 2:08 PM EST During this visit the vaccine(s) was: Administered Obtained informed verbal consent from patient/parent/patient digital sales representative for immunization(s) as ordered, questionnaire completed and VIS educational handouts reviewed with patient/parent/patient digital sales representative who denies contraindications and verbalizes understanding of indication, potential side effect and actions to be taken if side effects occur. Double identification of patient completed with patient/parent/patient digital sales representative using name and prior to [...] B27 positive) 2003 Followed with Rheum at [facility] Open fracture of other and unspecified [...] and/or coordination of care. Sincerely, KONRAD Quevedo [facility] Division of Gastroenterology & Hepatology 08/14/22 1:54 PM GI clinic documented in this [id number] History of Present illness Narrative* Emily Dunn RN - 08/14/2022 2:08 PM EST During this visit the vaccine(s) was: Administered Obtained informed verbal consent from patient/parent/patient digital sales representative for immunization(s) as ordered, questionnaire completed and VIS educational handouts reviewed with patient/parent/patient digital sales representative who denies contraindications and verbalizes understanding of indication, potential side effect and actions to be taken if side effects occur. Double identification of patient completed with patient/parent/patient digital sales representative using name and prior to [...] B27 positive) 2003 Followed with Rheum at [facility] Open fracture of other and unspecified [...] and/or coordination of care. Sincerely, KONRAD Quevedo [facility] Division of Gastroenterology & Hepatology 08/15/22 8:19 AM GI clinic documented in this [id number] History of Present illness Narrative* Emily Dunn RN - 08/14/2022 2:08 PM EST During this visit the vaccine(s) was: Administered Obtained informed verbal consent from patient/parent/patient digital sales representative for immunization(s) as ordered, questionnaire completed and VIS educational handouts reviewed with patient/parent/patient digital sales representative who denies contraindications and verbalizes understanding of indication, potential side effect and actions to be taken if side effects occur. Double identification of patient completed with patient/parent/patient digital sales representative using name and prior to administration, and patient tolerated immunization(s) administration without incident. * Maura Canela - 08/14/2022 1:08 PM EST Patient was identified by name and date of . Maura WilhelmoPatient at risk for falls:No Falls Risk protocol implemented: No * Saskia Madison APRN-[employer] - 08/14/2022 1:00 PM EST Images from [...] B27 positive) 2003 Followed with Rheum at [facility] Open fracture of other and unspecified [...] likely 2/2 hemolytic anemia) -discuss with transplant canoe inspector final, Dr. Gary and arrange for f/u in [...] and/or coordination of care. Sincerely, KONRAD Quevedo [facility] Division of Gastroenterology & Hepatology 08/15/22 8:19 AM GI clinic documented in this [id number] History of Present illness Narrative* Jasmyne Grimaldo [...] clinic. Jasmyne Grimaldo RN documented in this [id number] Instructions* Patient Instructions* Emily Dunn RN - [...] these numbers to schedule your Upper Endoscopy. [facility] [address] [place], [place] [address] West Entrance Thursday-Thursday 8A-4P [facility] [address], [place] [id number] Thursday-Thursday 8A-4P [facility]. [address] [place], [place] [id number] Thursday-Thursday 8A-4P Centralized GI Procedure scheduling: UPPER [...] hours, please call to speak to the [facility] nurse precision farming specialist. If you need to cancel this appointment, please call , at least 48 hours before your appointment time. For additional health or procedure preparation information call the Samplesaint line at . The Samplesaint line is open 24 hours a day including weekends and holidays. PLEASE BRING IN YOUR INSURANCE CARD AND MEDICATIONS OR LIST OF CURRENT MEDICATIONS. PLEASE LEAVE JEWELRY AT HOME AND DO NOT WEAR HEAVY FRAGRANCE OR NAIL YEMENI WE MAKE EVERY ATTEMPT TO MAINTAIN OUR [...] any problems or questions, please call the [facility] line at [phone]. documented in this [id number] Instructions* Patient Instructions* Emily Dunn RN - [...] these numbers to schedule your Upper Endoscopy. [facility] [address] [id number] [facility] Thursday-Thursday 8A-4P [facility] [address], [place] [phone] Thursday-Thursday 8A-4P [facility]. [address], [place] [id number] Thursday-Thursday 8A-4P Centralized GI Procedure scheduling: UPPER [...] hours, please call to speak to the [facility] nurse precision farming specialist. If you need to cancel this appointment, please call , at least 48 hours before your appointment time. For additional health or procedure preparation information call the Samplesaint line at . The [employer] line is open 24 hours a day including weekends and holidays. PLEASE BRING IN YOUR INSURANCE CARD AND MEDICATIONS OR LIST OF CURRENT MEDICATIONS. PLEASE LEAVE JEWELRY AT HOME AND DO NOT WEAR HEAVY FRAGRANCE OR NAIL YEMENI WE MAKE EVERY ATTEMPT TO MAINTAIN OUR [...] any problems or questions, please call the [facility] line at [phone]. documented in this [id number] History of Present illness Narrative* Tanvir Black [...] B27 positive) 2003 Followed with Rheum at [facility] Open fracture of other and unspecified [...] Center 08/14/2022 11:30 AM Tanvir Black MD [facility] 08/14/2022 12:00 PM ONC NURSE [facility] 08/14/2022 1:00 PM Saskia Madison APRN-[facility] Tanvir Black MD Hematology/Oncology 05/06/22 [...] 100 %. Sally Chavez documented in this [id number] History of Present illness Narrative* Leslie Canela [...] results. Leslie Canela RN documented in this [id number] History of Present illness Narrative* Rosita Le RN - 03/13/2022 12:29 PM EDT Patient was identified by name and date of . 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 Blood obtained via venipuncture from RAC zascl26N 3/4in butterfly needle. Blood specimen sent to lab. Pt tolerated procedure well. Pt verbalized follow up instructions and discharged home in stable condition. Rosita Le RN documented in this [id number] History of Present illness Narrative* Tanvir Black [...] B27 positive) 2003 Followed with Rheum at [facility] Open fracture of other and unspecified [...] to oncologist closer to his home in [facility]. Patientto call back with name of buncher operator and fax number.will keep care here with [...] AM MAIN CARD TEST-311 Non Inv Card [facility] 05/06/2022 10:30 AM [facility] 05/06/2022 11:00 AM ONC NURSE [facility] Tanvir Black MD Hematology/Oncology 03/13/22 5:20 PM * Jojo Garcia - 03/13/2022 11:41 AM EDT .Patient was identified by name and date of . Jojo Garcia .Patient at risk for falls:Yes Falls Risk protocol implemented: No documented in this [id number] Hospital Discharge instructions Patient Education 02/17/2022 16:25:10 [...] care provider. Do not drink alcohol. Take ibph-oyv-jpxmvcg and prescription medicines only as told by [...] 08/24/2006 Document Revised: 05/26/2019 Document Reviewed: 05/26/2019 [employer] Patient Education 2020 [employer] 02/17/2022 16:25:10 Cellulitis, Adult Cellulitis, Adult [...] Follow these instructions at home: Medicines Take rhdc-otb-cenclwk and prescription medicines only as told by [...] such as antibiotic medicines or antihistamines. Take ltqe-gdv-ifiykln and prescription medicines only as told by [...] 06/03/2006 Document Revised: 01/13/2019 Document Reviewed: 01/13/2019 [employer] Patient Education 2020 [employer]. 02/17/2022 16:25:10 Hypokalemia Hypokalemia Hypokalemia means that [...] hospital. Follow these instructions at home: Take iznf-ywb-nlkobsh and prescription medicines only as told by [...] cantaloupe, kiwi, oranges, tomatoes, asparagus, and potatoes. ?[place]pachet juice. ?Tomato juice. ?Red meats. ?Yogurt. Keep [...] 08/24/2006 Document Revised: 04/06/2019 Document Reviewed: 04/06/2019 [employer] Patient Education 2020 [employer]. 02/17/2022 16:25:10 Peripheral Edema Peripheral Edema Peripheral [...] by your health care provider. Medicines Take ugvw-xey-ydioylb and prescription medicines only as told by [...] 10/01/2005 Document Revised: 05/18/2019 Document Reviewed: 05/18/2019 [employer] Patient Education 2020 [employer]. Follow Up Care 02/17/2022 12:28:34 With:Milagros Barakat Address:Unknown When:02/20/2022 15:52:54 Comments:Return to the emergency room if your pain gets worse, fever, swelling gets worse or any new symptoms With:Colby Link Address: [facility] Rommel Fernández, [facility] [address] [place] [address]- Business (1) When:Within 3 Day(s) [facility]06-13-2022 Evaluation + Plan noteExtracted from: Title:ED [...] Charcoal 02/17/22 * Blood Culture Charcoal 02/17/22 [facility]06-07-2022 Telephone encounter Note* Telephone Encounter - [...] Kulwinder Dozier PharmD, PharmD. Oncology Specialty Pharmacist [id number] Date: 02/11/22 [id number] Miscellaneous Notes* Telephone Encounter - Kulwinder Dozier [...] Kulwinder Dozier PharmD, PharmD. Oncology Specialty Pharmacist [id number] Date: 02/11/22 * Telephone Encounter - Kulwinder Dozier PharmD - 02/11/2022 12:39 PM EDT Images from the original note were not included. [facility] Oncology Specialty Pharmacy Referral [facility] received a prescription for MMF (Cellcept) for this patient on 02/11/2022. [facility] has been contacted to initiate a Prior Authorization for this medication. This is an immunomodulatory agent Patient Information: Will Ralph is a 36 year old male [id number] [facility] [id number] Insurance on file: [employer] COMMERCIAL ID: [id number] BIN: [id number] PCN: -- Group: [id number] Specialty Medication Medication and dosing: mycophenolate (CELLCEPT) 500 MG tablet- Take 2 tablets by mouth 2 times daily. 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 [...] pharmacist once medication is approved. Questions for [facility] may be directed to [phone] option 3. Thank you for the referral, Kulwinder Dozier PharmD Oncology Specialty Pharmacist [phone] [id number] documented in this [id number] Telephone encounter Note* Telephone Encounter - Kulwinder Dozier PharmD - 02/11/2022 12:39 PM EDT Images from the original note were not included. [facility] Oncology Specialty Pharmacy Referral [facility] received a prescription for MMF (Cellcept) for this patient on 02/11/2022. [facility] has been contacted to initiate a Prior Authorization for this medication. This is an immunomodulatory agent Patient Information: Will Ralph is a 36 year old male [id number] [facility] [id number] Insurance on file: [employer] COMMERCIAL ID: [id number] BIN: [id number] PCN: -- Group: [id number] Specialty Medication Medication and dosing: mycophenolate (CELLCEPT) 500 MG tablet- Take 2 tablets by mouth 2 times daily. 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 [...] pharmacist once medication is approved. Questions for [facility] may be directed to [phone] option 3. Thank you for the referral, Kulwinder Dozier PharmD Oncology Specialty Pharmacist [phone] [id number] History of Present illness Narrative* Cyn Hopper RN - 02/11/2022 11:45 AM EDT Patient was identified by name and date of . Cyn Hopper RN Patient at risk for falls:No Falls Risk protocol implemented: No Hemolytic anemia due to warm antibody (HCC) [008603] Pt arrived to clinic for MDVS and labs. Blood obtained via venipuncture from RAC using 23G 3/4in butterfly needle. Blood specimen sent to lab. Pt tolerated procedure well, dressing applied. AVS provided and reviewed. Pt verbalized follow up instructions and discharged home in stable condition. Cyn Hopper RN documented in this [id number] Miscellaneous Notes* Telephone Encounter - Liseth Santana [...] patient 2. [place] P [id number] (Pharmacy Prior Authorization Pool) Patient advised to follow up with provider's office if they have any further questions or if no answer after 3 business days. Providers office is to contact patient to advise of medication changes/next steps documented in this [id number] Miscellaneous Notes* Care Plan Note - Rosa [...] RN Outcome: Progressing 01/17/2022 1625 by Rosa Mesnah RN Outcome: Progressing Problem: Impaired Skin Integrity: [...] Mensah RN Outcome: Progressing 01/17/2022 1625 by oRsa Mensah RN Outcome: Progressing Problem: Safety: Goal: [...] RNF BARRIERS TO PLAN OF CARE: None COBBLER APPRENTICE IRENA Callahan RN DAY SHIFT RN Alvaro [...] was yellow x 1 day. While at [facility], patient was HDS, however noted with significant bru ising and edema of LUE. Reportedly, trauma surgery was consulted at [facility] and there was initially concern for compartment syndrome and fasciotomy was considered, but ultimately did not occur at the time. The trauma attending Dr. Du recommended orthopedic consultation upon arrival to the [facility] MICU. While at [facility] labs significant for indirect hyperbilirubinemia, and acute macrocytic anemia 6.9 requiring 1u pRBC and [address] Abd/Pelvis W/ Contrast showed liver cirrhosis and steatosis without CBD dilation. Received morphine, ceftriaxone, protonix, thiamine. Started on NS for rhabdo. Patient transferred to [facility] for tertiary center care. While in the [facility] MICU, Ortho following - request MR Nadia [...] Transfer to F soon- weaning precidex off Sw/disability case manager for dc concerns Problem: Safety: [...] OF CARE: BARRIERS TO PLAN OF CARE: COBBLER APPRENTICE RN: Bharta Callahan DAY SHIFT RN: Meli Keane * 1:1 Interaction - Keo Gaona MD - 01/14/2022 7:42 AM EDT Images from the original note were not included. SECLUSION/RESTRAINTS PROVIDER [id number] EVALUATION NOTE Will Ralph was evaluated on [...] additional home-going needs (PRN) Note: Family updates Sw/disability case manager as needed Problem: Safety: Goal: [...] none BARRIERS TO PLAN OF CARE: none COBBLER APPRENTICE RN Jessee Unger RN DAY SHIFT RN Quinn Graham RN * 1:1 Interaction - Hannah Leggett MD - 01/13/2022 4:30 AM EDT Images from the original note were not included. SECLUSION/RESTRAINTS PROVIDER [id number] EVALUATION NOTE Will Ralph was evaluated on [...] None BARRIERS TO PLAN OF CARE: None COBBLER APPRENTICE RN : Elsa Jenkins RN DAY SHIFT RN : Jessee Sen RN * Care Plan Note - Margoth Jenknis RN - 01/12/2022 1:07 AM EDT Problem: [...] original note were not included. SECLUSION/RESTRAINTS PROVIDER [id number] EVALUATION NOTE Will Ralph was evaluated on [...] none BARRIERS TO PLAN OF CARE: none COBBLER APPRENTICE IRENA Canales DAY SHIFT IRENA Childers * 1:1 Interaction - Hannah Leggett MD - 01/11/2022 1:39 AM EDT Images from the original note were not included. SECLUSION/RESTRAINTS PROVIDER [id number] EVALUATION NOTE Will Ralph was evaluated on [...] remain still for MRI. Dr. Curry aware. COBBLER APPRENTICE RN Quinn Jameson DAY SHIFT IRENA Childers * 1:1 Interaction - Abhinav De La Vega DO - 01/10/2022 2:31 PM EDT SECLUSION/RESTRAINTS PROVIDER [id number]-NU-[id number] EVALUATION NOTE Will Ralph was evaluated on [...] original note were not included. SECLUSION/RESTRAINTS PROVIDER [id number]-KG-[id number] EVALUATION NOTE Will Ralph was evaluated on [...] to self * Care Plan Note - Bagn Jameson RN - 01/10/2022 4:42 AM EDT [...] were discussed with the patient and/or legal digital sales representative. The risks, benefits and alternatives were reviewed. Questions regarding blood transfusions were answered. The patient /or the patient s legal digital sales representative agree with the plan for [...] - 01/09/2022 9:02 AM EDT SECLUSION/RESTRAINTS PROVIDER [id number] EVALUATION NOTE Will Ralph was evaluated on [...] patient will be met 01/09/2022629 by Bang Jamseon RN Outcome: Progressing Note: Pt is being [...] original note were not included. SECLUSION/RESTRAINTS PROVIDER [id number] EVALUATION NOTE Will Ralph was evaluated on [...] - 01/08/2022 10:46 PM EDT SECLUSION/RESTRAINTS PROVIDER [id number]-[id number] EVALUATION NOTE Will Ralph was evaluated on [...] of harm to self documented in this [id number] Hospital course Narrative* Afua Umanzor MD - 01/17/2022 3:31 PM EDT Images from the original note were not included. DISCHARGE SUMMARY [address] [id number] Will Ralph Date of : 1985 36 [...] 01/20/2022 11:00 AM Abbey Alvarez MD Liver [facility] 01/23/2022 11:45 AM Ronen Welch MD [facility] ORTHO [facility] 02/11/2022 10:00 AM Tanvir Black MD [facility] Condition at Discharge Improved Activity No [...] bilirubin may falsely lower creatinine 169 63 880 70 2714 6.4 2.6 2.10 11.1 Comment: Elevated bilirubin [...] followed by pain. He was seen at [facility] and transferred to ICU He [...] he will get assistance from rehab in [place] for alcohol abuse. On the day of discharge, patient was stable. Left arm swelling was improving. He has good peripheral pulses in the left arm. He is alert and oriented x3. CVS - systolic murmur, lungs - clear to auscultation, abdomen - soft, nontender, HOT SAW HELPER - alert, moving all extremities. Current Discharge [...] follow-up Afua umanzor MD documented in this [id number] History of Present illness Narrative* Kennedi Best [...] resources. Pt declines assistance. RAI Claudio, JOSH-S [phone] * Afua Umanzor MD - 01/16/2022 8:18 AM EDT Images from the original note were not included. GENERAL MEDICAL FLOOR DAILY PROGRESS NOTE Will Ralph [id number] 01/16/2022 Length of stay: 8 day(s) SUBJECTIVE: [...] ATTENDING NOTE LEON SANTANA MD - PIN [id number] I saw and evaluated the patient. I [...] Director, Pulmonary, Critical Care and Sleep Medicine [facility] * Reanna Doyle [facility] - 01/15/2022 9:24 AM [...] been updated per consult agreement. REANNA DOYLE [facility] Department of Pharmacy Services * Keo Gaona MD - 01/15/2022 7:51 AM EDT Images from the original note were not included. [facility] Medical Intensive Care Unit Critical Care Progress Note Will Ralph 36 year old 136.834305 lbs MRN/Room: [id number]/CP3-303/1 Length of stay: 7 day(s) Summary 36M [...] was yellow x 1 day. While at [facility], patient was HDS, however noted with significant bru ising and edema of LUE. Reportedly, trauma surgery was consulted at [facility] and there was initially concern for compartment syndrome and fasciotomy was considered, but ultimately did not occur at the time. The trauma attending Dr. Du recommended orthopedic consultation upon arrival to the [facility] MICU. While at [facility] labs significant for indirect hyperbilirubinemia, and acute macrocytic anemia 6.9 requiring 1u pRBC and [address] Abd/Pelvis W/ Contrast showed liver cirrhosis and steatosis without CBD dilation. Received morphine, ceftriaxone, protonix, thiamine. Started on NS for rhabdo. Patient transferred to [facility] for tertiary center care. While in the [facility] MICU, Ortho following - request MR L [...] improving with IV hydration Hyperbilirubinemia worsening since [facility]. DDx favors hemolysis - could be [...] No overt GIB. s/p 1u pRBC from [facility], did not increment appropriately - only [...] (deescalation of antibiotics): NA Social- Dad Rich [phone] and mom Code Status: Full Code Dispo: MICU Plan is preliminary until discussed with attending Keo Gaona MD PGY-2 * Leon Santana MD - 01/14/2022 11:16 AM EDT Images from the original note were not included. MICU ATTENDING NOTE LEON SANTANA MD - PIN [id number] I saw and evaluated the patient. I [...] medical issues requiring critical care management include: HOT SAW HELPER FAILURE. HEPATIC FAILURE . Additional findings and [...] Director, Pulmonary, Critical Care and Sleep Medicine [facility] * Keo Gaona MD - 01/14/2022 7:42 AM EDT Images from the original note were not included. [facility] Medical Intensive Care Unit Critical Care Progress Note Will Ralph 36 year old 136.685 lbs MRN/Room: [id number]/CP3-303/1 Length of stay: 6 day(s) Summary 36M [...] was yellow x 1 day. While at [facility], patient was HDS, however noted with significant bru ising and edema of LUE. Reportedly, trauma surgery was consulted at [facility] and there was initially concern for compartment syndrome and fasciotomy was considered, but ultimately did not occur at the time. The trauma attending Dr. Du recommended orthopedic consultation upon arrival to the [facility] MICU. While at [facility] labs significant for indirect hyperbilirubinemia, and acute macrocytic anemia 6.9 requiring 1u pRBC and [address] Abd/Pelvis W/ Contrast showed liver cirrhosis and steatosis without CBD dilation. Received morphine, ceftriaxone, protonix, thiamine. Started on NS for rhabdo. Patient transferred to [facility] for tertiary center care. While in the [facility] MICU, Ortho following - request MR Zuniga [...] improving with IV hydration Hyperbilirubinemia worsening since [place]. DDx favors hemolysis - could be from [...] (deescalation of antibiotics): NA Social- Dad Rich [phone] and mom Code Status: Full Code Dispo: MICU Plan is preliminary until discussed with attending Keo Gaona MD PGY-2 * Keo Gaona MD - 01/13/2022 10:37 AM EDT Images from the original note were not included. [facility] Medical Intensive Care Unit Critical Care Progress Note Will Ralph 36 year old 131.100721 lbs MRN/Room: [id number]/CP3-303/1 Length of stay: 5 day(s) Summary 36M [...] was yellow x 1 day. While at [facility], patient was HDS, however noted with significant bru ising and edema of LUE. Reportedly, trauma surgery was consulted at [facility] and there was initially concern for compartment syndrome and fasciotomy was considered, but ultimately did not occur at the time. The trauma attending Dr. Du recommended orthopedic consultation upon arrival to the [facility]. While at [facility] labs significant for indirect hyperbilirubinemia, and acute macrocytic anemia 6.9 requiring 1u pRBC and [address] Abd/Pelvis W/ Contrast showed liver cirrhosis and steatosis without CBD dilation. Received morphine, ceftriaxone, protonix, thiamine. Started on NS for rhabdo. Patient transferred to [facility] for tertiary center care. While in the [facility] MICU, Ortho following - request MR L [...] improving with IV hydration Hyperbilirubinemia worsening since [place]. DDx favors hemolysis - could be from [...] (deescalation of antibiotics): Ceftriaxone Social- Dad Rich [phone] and mom Code Status: Full Code Dispo: MICU Plan is preliminary until discussed with attending Keo Gaona MD PGY-2 * Leon Santana MD - 01/13/2022 10:12 AM EDT Images from the original note were not included. MICU ATTENDING NOTE LEON SANTANA MD - PIN [id number] I saw and evaluated the patient. I [...] management include: ACUTE BLOOD LOSS ANEMIA and HOT SAW HELPER FAILURE. HEPATIC FAILURE . Additional findings and [...] Director, Pulmonary, Critical Care and Sleep Medicine [facility] * oCdi Thurman LSW - 01/13/2022 9:49 AM EDT ICU Note: SW continues to follow for positive screen for low risk suicide and abuse. SW spoke with bedside RN who reported pt alert but drowsy. SW to follow up with pt to attempt to address. Codi Tuhrman [facility] Care Coordination Department 10:59 AM Addendum: SW met with pt at bedside. Pt sleeping upon SW entering room. Pt restrained, with mits. SW did not awake to name being called several times. SW will follow up with pt as appropriate to address. Codi Thurman [facility] Care Coordination Department * Elizabeth Unger RN [...] ATTENDING NOTE LEON SANTANA MD - PIN [id number] I saw and evaluated the patient. I [...] management include: ACUTE BLOOD LOSS ANEMIA and HOT SAW HELPER FAILURE, HEPATIC FAILURE. Additional findings and notation: [...] Director, Pulmonary, Critical Care and Sleep Medicine [facility] * Keo Gaona MD - 01/12/2022 8:32 AM EDT Images from the original note were not included. [facility] Medical Intensive Care Unit Critical Care Progress Note Will Ralph 36 year old 149.58735 lbs MRN/Room: [id number]/CP3-303/1 Length of stay: 4 day(s) Summary 36M [...] was yellow x 1 day. While at [facility], patient was HDS, however noted with significant bru ising and edema of LUE. Reportedly, trauma surgery was consulted at [facility] and there was initially concern for compartment syndrome and fasciotomy was considered, but ultimately did not occur at the time. The trauma attending Dr. Du recommended orthopedic consultation upon arrival to the [facility]. While at [facility] labs significant for indirect hyperbilirubinemia, and acute macrocytic anemia 6.9 requiring 1u pRBC and [address] Abd/Pelvis W/ Contrast showed liver cirrhosis and steatosis without CBD dilation. Received morphine, ceftriaxone, protonix, thiamine. Started on NS for rhabdo. Patient transferred to [facility] for tertiary center care. While in the [facility] MICU, Ortho following - request MR L [...] (deescalation of antibiotics): Ceftriaxone Social- Dad Rich [phone] and mom Code Status: Full Code Dispo: [...] the original note were not included. [facility] Medical Intensive Care Unit Critical Care Progress Note Will Ralph 36 year old 151.88814 lbs MRN/Room: [id number]/CP3-139/1 Length of stay: 3 day(s) Summary 36M [...] was yellow x 1 day. While at [facility], patient was HDS, however noted with significant bru ising and edema of LUE. Reportedly, trauma surgery was consulted at [facility] and there was initially concern for compartment syndrome and fasciotomy was considered, but ultimately did not occur at the time. The trauma attending Dr. Du recommended orthopedic consultation upon arrival to the [facility]. While at [facility] labs significant for indirect hyperbilirubinemia, and acute macrocytic anemia 6.9 requiring 1u pRBC and [address] Abd/Pelvis W/ Contrast showed liver cirrhosis and steatosis without CBD dilation. Received morphine, ceftriaxone, protonix, thiamine. Started on NS for rhabdo. Patient transferred to [facility] for tertiary center care. While in the [facility] MICU, Ortho following - request MR Nadia [...] No overt GIB. s/p 1u pRBC from [place], did not increment appropriately - only 6.9 [...] (deescalation of antibiotics): Ceftriaxone Social- Dad Rich [phone] and mom Code Status: Full Code Dispo: MICU Plan is preliminary until discussed with attending Abhinav De La Vega DO PGY-2 [phone] (click to text page) * Mateo Albert [...] ATTENDING NOTE LEON SANTANA MD - PIN [id number] I saw and evaluated the patient. I [...] Director, Pulmonary, Critical Care and Sleep Medicine [facility] * Candido Lerner MD - 01/10/2022 [...] and 1u FFP and was transfered to [facility] for further management. On (01/08) PM pt [...] Candido Lerner MD Hematology- Oncology PGY-V Pager [phone] Associated attestation - Rd Weaver MD - [...] with GI attending, Dr. Haley Gary MD ([id number]) and Ulysses Solomon MD. Primary team updated via [employer] secure chat. We will sign off but please don't hesitate to reach out with questions or concerns. Abbey Alvarez MD Gastroenterology Fellow Personal Pager [phone] GI Consult Pager (nights and weekends) [phone] * Francisco Marino MD - 01/10/2022 9:13 AM EDT MICU ATTENDING NOTE FRANCISCO MARINO MD - PIN [id number] I saw and evaluated the patient. I [...] ACUTE BLOOD LOSS ANEMIA, HEPATIC FAILURE, and HOT SAW HELPER FAILURE. Additional findings and notation: Will Ralph is a 36 year old male with PMH of EtOH dependence who presented with 2 days of L arm pain to [facility] ED. Patient works on a [...] M.D. Pulmonary, Critical Care and Sleep Medicine [facility] * Abhinav De La Vega DO - 01/10/2022 7:16 AM EDT Images from the original note were not included. [facility] Medical Intensive Care Unit Critical Care Progress Note Will Ralph 36 year old 150.65144 lbs MRN/Room: [id number]/CP3-139/1 Length of stay: 2 day(s) Summary 36M [...] was yellow x 1 day. While at [facility], patient was HDS, however noted with significant bru ising and edema of LUE. Reportedly, trauma surgery was consulted at [facility] and there was initially concern for compartment syndrome and fasciotomy was considered, but ultimately did not occur at the time. The trauma attending Dr. Du recommended orthopedic consultation upon arrival to the [facility]. While at [facility] labs significant for indirect hyperbilirubinemia, and acute macrocytic anemia 6.9 requiring 1u pRBC and [address] Abd/Pelvis W/ Contrast showed liver cirrhosis and steatosis without CBD dilation. Received morphine, ceftriaxone, protonix, thiamine. Started on NS for rhabdo. Patient transferred to [facility] for tertiary center care. While in the [facility] MICU, Ortho following - request MR Nadia [...] suspected Autoimmune hemolytic anemia Hyperbilirubinemia worsening since [place]. DDx favors hemolysis - could be from [...] No overt GIB. s/p 1u pRBC from [employer], did not increment appropriately - only 6.9 --> 7.2 after the unitof blood. - LDH elevated, low haptoglobin c/w hemolysis. retic index is lower (likely bone marrow suppressionfrom etoh). ALYIN IgG is positive, suggestive of warm autoimmune [...] (deescalation of antibiotics): Ceftriaxone Social- Dad Rich [phone] and mom Code Status: Full Code Dispo: MICU Plan is preliminary until discussed with attending Abhinav De La Vega DO PGY-2 [phone] (click to text page) * Bang Jameson [...] ATTENDING NOTE FRANCISCO MARINO MD - PIN [id number] I saw and evaluated the patient. I [...] ACUTE BLOOD LOSS ANEMIA, HEPATIC FAILURE, and HOT SAW HELPER FAILURE. Additional findings and notation: Will Ralph is a 36 year old male with PMH of EtOH dependence who presented with 2 days of L arm pain to [facility] ED. Patient works on a [...] M.D. Pulmonary, Critical Care and Sleep Medicine [facility] * Nasrin Smith RN - 01/09/2022 [...] No BARRIERS TO PLAN OF CARE: No COBBLER APPRENTICE IRENA Gomez DAY SHIFT IRENA Hernandez * Codi Thurman LSW - 01/09/2022 9:47 AM EDT Admission Screen Consult: SW aware of social concern per water main pipe layer screen for positive screen for low risk suicide and abuse. Pt is currently confused, restrained and unable to participate in conversation at this time. SW will follow up with pt to address as appropriate. SARAH Kelley Care Coordination Department * Ivy Chua MD - 01/09/2022 7:34 AM EDT Images from the original note were not included. [facility] Medical Intensive Care Unit Critical Care Progress Note Will Ralph 36 year old 149.6925 lbs MRN/Room: [id number]/3-139/1 Length of stay: 1 day(s) Summary 36M [...] skin was yellow x 1 day. At [facility], pt was HDS. Noted with significant bruising and edema of LUE. Reportedly, trauma surgery was consulted at [facility] and there was initially concern for compartment syndrome and fasciotomy was considered, but ultimately did not occur at the time. The trauma attending Dr. Du recommended orthopedic consultation upon arrival to the [facility]. Labs significantfor indirect hyperbilirubinemia, acute macrocytic anemia 6.9. CT abd/pel with contrast showed livercirrhosis and steatosis; no CBD dilation. Received morphine, ceftriaxone, protonix, thiamine. Received 1u pRBC and 1u FFP at [facility]. Started on NS for rhabdo. Transferred to [facility] for tertiary center care. Ortho following - [...] for overt GIB -s/p 1u pRBC from [facility], did not increment appropriately - only [...] not reliable given recent pRBC infusion at [facility] - Large bore PIVs -transfuse Hb [...] (deescalation of antibiotics): ctx Social- dad Rich [phone] and mom Code Status: Full Code Dispo: MICU Staffed with attending ranch hand Dr. Marino. Ivy Chua MD Internal Medicine [...] n/a BARRIERS TO PLAN OF CARE: n/a COBBLER APPRENTICE RN DAY SHIFT RN Chao * Loreta Macedo - 01/08/2022 1:33 PM EDT [facility] Spiritual Care Services Services provided for: Patient and Family Services initiated by: Staff Telecom Billing Analyst Reason for services: Initial visit Narrative: Telecom Billing Analyst knocked and entered patient's room to introduce self and share availability of spiritual care. Patient was sitting up in bed, awake and alert, visiting with his parents. Patient was polite and appreciative of visit but stated he had no spiritual care needs at this time. Interventions: Introduction of service Outcome: Patient aware of cement kiln operator availability Plan of Care: Follow-up not anticipated Loreta Macedo MDiv Staff Telecom Billing Analyst, (she/her/hers) Ext: [phone] Pager: [phone] documented in this [id number] Consult note* Keith Bolivar OT - 01/16/2022 [...] Dep Max Mod Min CG CS DS PA I Set-Up Cues Comment Feeding x Meal [...] With Patients permission ordered no equipment via [employer] Order. If any questions contact [facility] DME Provider at [phone]. 6 Clicks Daily Activity OT 01/16/2022 Help [...] Guard Assist/Supervision 4 - Non = Modified Jim Wells/Independent ASSESSMENT: ASSESSMENT: Will Ralph is performing functional [...] NA = Not Assessed, I = Independent, PA = Modified Independent, Sup = Supervised, Set [...] Dep Max Mod Min CG CS DS PA I Comment Roll to right sidelying x [...] With Patients permission ordered no equipment via Klypper Order. If any questions contact [facility] DME Provider at [phone]. 6 Clicks Basic Mobility PT 01/16/2022 Difficulty [...] NA = Not Assessed, I = Independent, PA = Modified Independent, Sup = Supervised, Set [...] Dep Max Mod Min CG CS DS PA I Comment Rolling x Supine<>sit x Sitting trial x Transfer x Sit<>stand x Without an assistive device. Standing trial x x2 minutes in unsupported static standing. Ambulation x 400 feet without an assistive device. Pt demonstrated step-through gait pattern with improved steadiness with continued practice. Stairs x 12 stairs with unilateral rail. Pt negotiated stairs with a otpn-wuiz-iusg pattern. Education: Instructed pt in roles of [...] Guard Assist/Supervision 4 - Non = Modified [place]/Independent Pt resting in recliner at end of [...] Clinical Specialist in Neurologic Physical Therapy Pager: [phone] AAROM = active assisted range of motion [...] % Nutrition Focused Physical Exam Muscle loss: [place] region: mild depression Clavicle region: visible but [...] 01/13 1440 ml Est needs: current wt 2721-8577 kcal/d 30-35 kcal/kg 95 g pro/d 1.5 [...] mentation allows Mehreen Raza MS RD LD [facility] Pager [phone] () Dietitian precision farming specialist (7a-7p) pager: [phone] * Chioma Butler OT - 01/14/2022 12:23 [...] joint effusion. 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, Pulse Oximeter, IV, Flexiseal, male External Catheter [...] Dep Max Mod Min CG CS DS PA I Set-Up Comment Feeding x x +Corpak, [...] Dep Max Mod Min CG CS DS PA I Set-Up Comment Toilet Transfers x Anticipate [...] improves Cognition: Orientation: Oriented to person Place: [facility] Current Date: 01/16/85 Asked pt to state year: 2021 Follows Commands: one step commands, requires occasional repeat of directions and easily distracted Attention: difficulty with divided attention, easily distracted during task and difficulty with alternating attention Memory: Impaired - recalls incident 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 If any questions contact [facility] DME Provider at [phone]. 6 Clicks Daily Activity OT 01/14/2022 Help [...] Guard Assist/Supervision 4 - Non = Modified [place]/Independent ASSESSMENT: Recommend further therapy services in an [...] the development of plan and goals. 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 If any questions contact [facility] DME Provider at [phone]. 6 Clicks Basic Mobility PT 01/14/2022 Difficulty [...] acute alcoholic hepatitis/Cirrhosis/Encp[ja;p[atju, suspected ETOH cirrhosis, indirect znwqryjtmfctzch7wlu, jaundice, elevated INR, thrombocytopenia, hyponatremia, rabdomyolysis Pt [...] NA = Not Assessed, I = Independent, PA = Modified Independent, Sup = Supervised, Set [...] and 1u FFP and was transfered to [facility]- ICU for further management. On (01/08) PM [...] B27 positive) 2003 Followed with Rheum at [facility] Open fracture of other and unspecified [...] and 1u FFP and was transfered to [facility]- ICU for further management. On (01/08) PM [...] Candido Lerner MD Hematology- Oncology PGY-V Pager [phone] Associated attestation - Rd Weaver MD - [...] and copper levels Mehreen Raza MS RD [facility] Pager [phone] () Dietitian precision farming specialist (-7p) pager: [phone] * Robert Allen MD - 01/08/2022 5:01 [...] the entire UE, causing him present to [facility] ED. While in the ED, the pt was noticed to be jaundiced and was found to be in acute liver failure. He was transferred to [facility] MICU for escalation of care. Ortho was [...] Mcmullen DO and will be discussed with precision farming specialist ortho hand attending. Dr. Welch. Robert Allen MD HÉCTOR Orthopaedic Surgery, PGY 2 Pager [phone] After 5 pm and on weekends, please page the on-call resident ([phone]) with questions or concerns. 01/08/22 This consult [...] admitted to MICU as a transfer from [facility] where he initially presented for left [...] multi vitamin, zinc, thiamine and folate supplementation. [facility] assessors for alcohol withdrawal - Start daily [...] continue to follow with you. Personal Pager [phone] GI Consult Pager (nights and weekends) [phone] Abbey Alvarez MD Gastroenterology Fellow Division of Gastroenterology & Hepatology [facility] 01/08/22 Associated attestation - Ulysses Solomon [...] varices. Ulysses Solomon MD documented in this [id number] Hospital Discharge instructions* Instructions* Rosa Mensah RN [...] is right for you. Copyright Copyright 2020 [employer]. and its affiliates and/or licensors. All rights [...] you to see other specialists, such as [facility] doctor, psychiatrist, social research assistant, or alcohol counselor. Stay sober. Get involved [...] irritable. Where can I learn more? National [place] of Alcohol Abuse and Alcoholism http://www.niaaa.nih.gov/alcohol-health/qtyorjmk-krgdzsc-ctwllxbwote/alcohol-use -disorders National Health Service https://www.nhs.uk/conditions/alcohol-misuse/ Substance Abuse [...] is right for you. Copyright Copyright 2020 [employer]. and its affiliates and/or licensors. All rights reserved. Patient Education Alcohol Use ? When Is Drinking a Problem? The Basics Written by the doctors and editors at [employer] How do I know if I am [...] a counselor (such as a psychologist, social research assistant, or psychiatrist) Take medicines Take part in [...] process is complete. This topic retrieved from [employer] on: Apr 04, 2020. Topic 69639 Version 9.0 Release: 28.4.6 - C28.294 2019 [employer] and/or its affiliates. All rights reserved. figure [...] and your health. Available at: http://rethinkingdrinking.niaaa.nih.gov. Graphic 66718 Version 1828.0 Consumer Information Use and Disclaimer [...] that is right for you.The use of [employer] content is governed by the [employer] Terms of Use. 2020 [employer]. All rights reserved. Copyright 2020 [employer] and/or its affiliates. All rights reserved. Patient [...] weights; are a rock climber, skier, gymnast, body coverer, or stock trader; or do other sports What are the [...] playing sports. Where can I learn more? [employer] https://orthoinfo.aaos.org/en/diseases--conditions/yitvlr-glsbwf-icaz-at-the-elb ow Last Reviewed Date 2018-06-01 Consumer Information [...] is right for you. Copyright Copyright 2020 [employer]. and its affiliates and/or licensors. All rights [...] listed above. After business hours please call [facility] ribbon hanking machine operator at and ask for the orthopeadicresident precision farming specialist. For emergencies call [phone]. [facility] Upper Extremity and Hand Surgery MD Enrique Duffy MD Kyle Chepla, MD Andrea Gallup, ARMAMENT MECHANIC-FRENCH BINDING FOLDER Josiane Muhammad, MD Saroj Mojica, MD Ulysses [...] is right for you. Copyright Copyright 2020 [employer]. and its affiliates and/or licensors. All rights [...] is right for you. Copyright Copyright 2020 [employer]. and its affiliates and/or licensors. All rights reserved. Patient Education Autoimmune Hemolytic Anemia The Basics Written by the doctors and editors at [employer] What is autoimmune hemolytic anemia? -- Autoimmune [...] process is complete. This topic retrieved from [employer] on: Apr 04, 2020. Topic 79872 Version 9.0 Release: 28.4.6 - C28.294 2019 [employer]. and/or its affiliates. All rights reserved. Consumer [...] that is right for you.The use of [employer] content is governed by the [employer] Terms of Use. 2020 [employer]. All rights reserved. Copyright 2020 [employer] and/or its affiliates. All rights reserved. documented in this [id number] History and physical note* Francisco Marino MD - 01/08/2022 2:02 PM EDT MICU ATTENDING NOTE FRANCISCO MARINO MD - PIN [id number] I saw and evaluated the patient. I [...] 2 days of L arm pain to [facility] ED. Patient works on a [...] M.D. Pulmonary, Critical Care and Sleep Medicine [facility] * Ivy Chua MD - 01/08/2022 8:[address] [facility] Medical Intensive Care Unit History and Physical Examination Will Ralph 36 year old 0 lbs MRN/Room: [id number] Admit Date: 01/08/2022 : 1985 PCP Contact: [...] and examined upon arrival to MICU at [facility]. Pt states he was working on the [...] of aleve every morning for pain. At [facility], presenting VS were 36.3C/HR 105/RR18/BP 145/68/ SpO2 98% on room air. Ht 170.18cm,wt 75kg. received morphine, ceftriaxone, protonix, thiamine. Received 1u pRBC and 1u FFP at [facility]. Started on NS @ 150cc/h. Reportedly, trauma surgery was consulted at [facility] and there was initially concern for compartment syndrome and fasciotomy was considered, but ultimately did not occur at the time. The trauma attending Dr. Du recommended orthopedic consultation upon arrival to the [facility] MICU. Labs at [facility] Alk phos 167 [...] ---> and please see images uploaded to [employer]. Resident's Assessment/Plan: Will Ralph is a 36 [...] for overt GIB -s/p 1u pRBC from [facility], did not increment appropriately - only [...] Code Status: Full Code Staffed with attending ranch hand Dr. Marino. Ivy Chua MD Internal Medicine PGY-3 documented in this [id number] Evaluation + Plan note Extracted from: Title:Admission [...] immediate surgery. Patient waiting for bed at [facility] Patient received vitamin K, 1 unit [...] tertiary center. Patient waiting for bed at [facility] Acute pancreatitis CT abdomen showed mild [...] made to ensure accuracy, however, inadvertently computerized staffing associate mistakes may be present. Dr. Aldair Thorpe [...] on January 07, 2022 18:44:52 EDT . [facility]04-01-2020 Evaluation + Plan note Future Appointments Appointment Date:12/07/2023 08:00:00 AM Scheduled Provider: [facility] App[facility] Type:CV Echo (FT) Appointment Date:12/07/2023 09:00:00 AM Scheduled Provider: [facility] Appoint[facility] Type:CV EKG (FT) Appointment Date:12/11/2023 08:00:00 AM Scheduled Provider: [facility] Appoint[facility] Type:CV Echo Stress (FT) Appointment Date:01/27/2024 09:40:00 AM Scheduled Provider:Loreta Padilla Location:[facility] Appointment Type: Open Future Scheduled Tests Laboratory* HgbA1c 07/24/23 * Rjevb-4-Fsddcsmhibw 09/01/23 * Ceruloplasmin 09/01/23 * Antimitochondrial Antibody, [...] Contrast 12/11/23 * Echo Transthoracic Complete [facility]07[facility]23 [facility] Future App[facility]ments Appointment Date:03/16/2023 11:00:00 AM Scheduled Provider:Teddy Hitchcock MD [facility] Appointment Type:WC [facility] (FT[facility] Future Appointments Appointment Date:03/30/2023 11:00:00 AM Scheduled Provider:Teddy Hitchcock MD [facility] Appointment Type:WC [facility] Visit (FT) [facility] Future Appointments Appointment Date:04/16/2023 12:00:00 PM Scheduled Provider: [facility] Appointment Type:US Duplex Procedures (FT) Appointment Date:04/23/2023 10:15:00 AM Scheduled Provider:Teddy Hitchcock MD [facility] Appointment Type:WC Follow Up Visit (FT) Future Scheduled Tests Radiology* US PVR Lower EXT Complete Bilat 04/16/23 [facility] Future Appointments Appointment Date:04/23/2023 10:15:00 AM Scheduled Provider:Teddy Hitchcock MD [facility] Appointment Type:WC Follow Up Visit (FT) [facility] Future Appointments Appointment Date:04/30/2023 08:30:00 AM Scheduled Provider: [facility] Appointment Type:WC Assessment (FT) Appointment Date:05/07/2023 11:30:00 AM Scheduled Provider:Teddy Hitchcock MD [facility] Appointment Type:WC [facility] Up Visit (FT) [facility] Future Appointments Appointment Date:05/07/2023 11:30:00 AM Scheduled Provider:Teddy Hitchcock MD [facility] Appointment Type:WC Follow Up Visit (FT) [facility] Future Appointments Appointment Date:05/14/2023 07:00:00 AM Scheduled Provider:Teddy Hitchcock MD [facility] Appointment Type:WC [facility] Visit (FT) [facility] Future Appointments Appointment Date:05/21/2023 11:15:00 AM Scheduled Provider:Teddy Hitchcock MD [facility] Appointment Type:WC [facility] (FT[facility] Future Appointments Appointment Date:06/04/2023 10:45:00 AM Scheduled Provider:Teddy Hitchcock MD [facility] Appointment Type:WC [facility] (FT[facility] Future Appointments Appointment Date:06/11/2023 01:00:00 PM Scheduled Provider: [facility] Appointment Type:WC Assessment (FT) Appointment Date:06/18/2023 10:00:00 AM Scheduled Provider:Teddy Hitchcock MD [facility] Appointment Type:WC [facility] (FT[facility] Future Appointments Appointment Date:06/25/2023 11:00:00 AM Scheduled Provider:Teddy Hitchcock MD [facility] Appointment Type:WC [facility] Visit (FT) [facility] Future Appointments Appointment Date:07/06/2023 10:30:00 AM Scheduled Provider:Teddy Hitchcock MD [facility] Appointment Type:WC [facility] Visit (FT) [facility] Future Appointments Appointment Date:07/16/2023 09:30:00 AM Scheduled Provider:Teddy Hitchcock MD [facility] Appointment Type:WC [facility] (FT[facility] Future Appointments Appointment Date:07/23/2023 09:00:00 AM Scheduled Provider:Teddy Hitchcock MD [facility] Appointment Type:WC Follow Up Visit (FT) Appointment Date:07/24/2023 07:40:00 AM Scheduled Provider:Loreta Padilla Location:[facility] Appointment Type:FM New Patient - Adult [facility] Future Appointments Appointment Date:07/24/2023 07:40:00 AM Scheduled Provider:Loreta Padilla Location:[facility] Appointment Type:FM New Patient - Adult Appointment Date:08/06/2023 09:30:00 AM Scheduled Provider:Teddy Hitchcock MD [facility] Appointment Type:WC [facility] Visit (FT) [facility] Future App[facility]ments Appointment Date:08/06/2023 09:30:00 AM Scheduled Provider:Teddy Hitchcock MD [facility] Appointment Type:WC Follow Up Visit (FT) Appointment Date:08/21/2023 07:20:00 AM Scheduled Provider:Loreta Padilla Location:[facility] Appointment Type: Open Future Scheduled Tests Laboratory* [...] Acid 07/24/23 * Vitamin B12 Level 07/24/23 [facility] Evaluation + Plan note Future Appointments Appointment Date:08/21/2023 07:20:00 AM Scheduled Provider:Loreta Padilla Location:[facility] Appointment Type:FM Open Appointment Date:09/01/2023 12:00:00 PM Scheduled Provider:Mario Evans MD Location:[facility] Appointment Type:[facility] New Patient Future Scheduled Tests Laboratory* [...] Acid 07/24/23 * Vitamin B12 Level 07/24/23 [facility] App[facility]ments Appointment Date:09/01/2023 12:00:00 PM Scheduled Provider:Carrol MULTANI, Mario Xiong Location:[facility] Appointment Type:BAD New Patient Appointment Date:10/28/2023 09:00:00 AM Scheduled Provider:Loreta Padilla Location:[facility] Appointment Type: Open Future Scheduled Tests [...] Acid 07/24/23 * Vitamin B12 Level 07/24/23 [facility] Evaluation + Plan note Future Appointments Appointment Date:09/03/2023 09:00:00 AM Scheduled Provider: Location[facility] Appointment Type:US Abdominal/Pelvis () Appointment Date:10/28/2023 09:00:00 AM Scheduled Provider:Loreta Padilla Location:[facility] Appointment Type: Open Future Scheduled Tests Laboratory* HgbA1c 07/24/23 * Ywqxs-1-Kaebnaitaxa 09/01/23 * Ceruloplasmin 09/01/23 * Antimitochondrial Antibody, [...] B12 Level 07/24/23 Radiology* US Liver 09/03/23 [facility] Evaluation + Plan note Future Appointments Appointment Date:10/28/2023 09:00:00 AM Scheduled Provider:Loreta Padilla Location:[facility] Appointment Type: Open Future Scheduled Tests Laboratory* HgbA1c 07/24/23 * Nnrir-0-Ftxlniqlqab 09/01/23 * Ceruloplasmin 09/01/23 * Antimitochondrial Antibody, [...] Acid 07/24/23 * Vitamin B12 Level 07/24/23 [facility] App[facility]ments Appointment Date:09/30/2023 10:15:00 AM Scheduled Provider: Location:[facility] Appointment Type:Surgery FT Appointment Date:10/01/2023 11:20:00 AM Scheduled Provider:Loreta Padilla Location:[facility] Appointment Type:FM Open Appointment Date:10/28/2023 09:00:00 AM Scheduled Provider:Loreta Padilla Location:[facility] Appointment Type: Open Future Scheduled Tests Laboratory* HgbA1c 07/24/23 * Wbmpx-4-Umwfnekbdsc 09/01/23 * Ceruloplasmin 09/01/23 * Antimitochondrial Antibody, [...] Acid 07/24/23 * Vitamin B12 Level 07/24/23 [facility] Evaluation + Plan note Future Appointments Appointment Date:11/11/2023 03:00:00 PM Scheduled Provider: Location:[facility] Appointment Type:Surgery FT Appointment Date:11/13/2023 01:00:00 PM Scheduled Provider:Iglesia Dior MD [facility] [place] Appoint[facility] Type:Cardiology New Patient (FT) Appointment Date:12/07/2023 08:00:00 AM Scheduled Provider: [facility] Appointment Type:CV Echo (FT) Appointment Date:12/07/2023 09:00:00 AM Scheduled Provider: [facility] Appointment Type:CV EKG () Appointment Date:12/07/2023 09:30:00 AM Scheduled Provider: [facility] Appointment Type:CV Echo Stress () Appointment Date:01/27/2024 09:40:00 AM Scheduled Provider:Loreta Padilla Location:[facility] Appointment Type: Open Future Scheduled Tests Laboratory* HgbA1c 07/24/23 * Wykpy-7-Hbnxgwdmmfl 09/01/23 * Ceruloplasmin 09/01/23 * Antimitochondrial Antibody, [...] Contrast 12/07/23 * Echo Transthoracic Complete 12/07/23 [facility] Evaluation + Plan note Future Appointments Appointment Date:01/27/2024 09:40:00 AM Scheduled Provider:Loreta Padilla Location:[facility] Appointment Type:FM Open Appointment Date:05/12/2024 03:15:00 PM Scheduled Provider:Carrol MULTANI, Mario Xiong Location:[facility] Appointment Type:BADH Follow Up Future Scheduled Tests Laboratory* HgbA1c 07/24/23 * Qzptm-0-Zdrmfxazlhs 09/01/23 * Ceruloplasmin 09/01/23 * Antimitochondrial Antibody, [...] Acid 07/24/23 * Vitamin B12 Level 07/24/23 [facility] Appointment Date:12/23/2023 10:00:00 AM Scheduled Provider:Loreta Padilla Location:[facility] Appointment Type: Hospital Follow Up w/TCM Appointment Date:12/25/2023 11:15:00 AM Scheduled Provider:Marc Liz MD [facility] Appointment Type:Cardiology New Patient () Appointment Date:01/27/2024 09:40:00 AM Scheduled Provider:Loreta Padilla Location:[facility] Appointment Type: Open Appointment Date:05/12/2024 03:15:00 PM Scheduled Provider:Mario Evans MD Location:[facility] Appointment Type:[facility] Follow Up Diagnostic Tests Pending * Acute Hepatitis A B C Panel 12/21/23 * HCV Antibody RFX to Quant PCR 12/21/23 * HIV Screen 4th Generation wRfx 12/21/23 Future Scheduled Tests Laboratory* Jraux-5-Kxfcthiiwvr 09/01/23 * Ceruloplasmin 09/01/23 * Antimitochondrial Antibody, [...] 07/24/23 * PT 07/24/23 * PT 09/01/23 [facility]ments Appointment Date:12/31/2023 08:00:00 AM Scheduled Provider: [facility] Appointment Type:US Abdominal/Pelvis () Appointment Date:01/06/2024 08:15:00 AM Scheduled Provider:Marc Liz MD [facility] Appointment Type:Cardiology New Patient (FT) Appointment Date:01/27/2024 09:40:00 AM Scheduled Provider:Loreta Padilla Location:[facility] Appointment Type:FM Open Appointment Date:05/12/2024 03:15:00 PM Scheduled Provider:Mario Evans MD Location:[facility] Appointment Type:BAD Follow Up Future Scheduled Tests Laboratory* Zeycm-4-Szellfsewrd 09/01/23 * Ceruloplasmin 09/01/23 * Antimitochondrial Antibody, [...] PT 09/01/23 Radiology* US Abdomen, Limited 12/31/23 [facility] Evaluation + Plan note Future Appointments Appointment Date:01/06/2024 08:15:00 AM Scheduled Provider:Marc Liz MD [facility] Appoint[facility] Type:Cardiology New Patient (FT) Appointment Date:01/27/2024 09:40:00 AM Scheduled Provider:Loreta Padilla Location:[facility] Appointment Type:FM Open Appointment Date:05/12/2024 03:15:00 PM Scheduled Provider:Mario Evans MD Location:[facility] Appointment Type:BAD Follow Up Future Scheduled Tests Laboratory* Ftumq-7-Krunuguuxbj 09/01/23 * Ceruloplasmin 09/01/23 * Antimitochondrial Antibody, [...] 07/24/23 * PT 07/24/23 * PT 09/01/23 [facility] Appointment Date:02/26/2024 08:15:00 AM Scheduled Provider:Barby MULTANI, [place] [facility] [place] Appoint[facility] Type:Cardiology New Patient (FT) Appointment Date:04/29/2024 09:00:00 AM Scheduled Provider:Loreta Padilla Location:[facility] Appointment Type: Open Appointment Date:05/12/2024 03:15:00 PM Scheduled Provider:Mario Evans MD Location:[facility] Appointment Type:[facility] Follow Up Future Scheduled Tests Laboratory* Busxg-5-Zuddvkosugr 09/01/23 * Ceruloplasmin 09/01/23 * Antimitochondrial Antibody, [...] 07/24/23 * PT 07/24/23 * PT 09/01/23 [facility] Evaluation + Plan note Future Appointments Appointment Date:02/22/2024 09:15:00 AM Scheduled Provider:Marc Liz MD [facility] Type:Cardiology New Patient (FT) Appointment Date:02/25/2024 09:00:00 AM Scheduled Provider:Ella Barahona [facility] Appoint[facility] Type:ONC Office Visit New 45 (FT) Appointment Date:04/29/2024 09:00:00 AM Scheduled Provider:Loreta Padilla Location:[facility] Appointment Type:FM Open Appointment Date:05/12/2024 03:15:00 PM Scheduled Provider:Mario Evans MD Location:[facility] Appointment Type:BADH Follow Up Future Scheduled Tests Laboratory* Cqaby-6-Wynyqlwwrpd 09/01/23 * Ceruloplasmin 09/01/23 * Antimitochondrial Antibody, [...] 07/24/23 * PT 07/24/23 * [facility]23 [facility] Appointment Date:03/14/2024 09:20:00 AM Scheduled Provider:Ella Barahona [facility] App[facility] Type:ONC Office Visit 20 (FT) Appointment Date:03/16/2024 08:15:00 AM Scheduled Provider:Marc Liz MD [facility] Type:Cardiology New Patient (FT) Appointment Date:04/29/2024 09:00:00 AM Scheduled Provider:Loreta Padilla Location:[facility] Appointment Type: Open Appointment Date:05/12/2024 03:15:00 PM Scheduled Provider:Mario Evans MD Location:[facility] Appointment Type:BADH Follow Up Future Scheduled Tests Laboratory* Sutfs-8-Srgjszmkqft 09/01/23 * Ceruloplasmin 09/01/23 * Antimitochondrial Antibody, [...] 07/24/23 * PT 07/24/23 * PT 09/01/23 [facility] Appointment Date:03/14/2024 09:20:00 AM Scheduled Provider:Ella Barahona [facility] Appoint[facility] Type:ONC Office Visit 20 (FT) Appointment Date:03/17/2024 02:15:00 PM Scheduled Provider:Marc Liz MD [facility] Type:Cardiology New Patient (FT) Appointment Date:04/29/2024 09:00:00 AM Scheduled Provider:Loreta Padilla Location:[facility] Appointment Type:FM Open Appointment Date:05/12/2024 03:15:00 PM Scheduled Provider:Mario Evans MD Location:[facility] Appointment Type:[facility] Follow Up Diagnostic Tests Pending * Haptoglobin 03/02/24 * Copper Level 03/02/24 Future Scheduled Tests Laboratory* Pwnxt-8-Fbagoffcrrk 09/01/23 * Ceruloplasmin 09/01/23 * Antimitochondrial Antibody, [...] 07/24/23 * PT 07/24/23 * PT 09/01/23 [facility] Appointment Date:03/17/2024 02:15:00 PM Scheduled Provider:Marc Liz MD Location[facility] Appointment Type:Cardiology New Patient (FT) Appointment Date:04/13/2024 09:00:00 AM Scheduled Provider:Kavon Lu DO [facility] Appoint[facility] Type:ONC Office Visit 20 (FT) Appointment Date:04/29/2024 09:00:00 AM Scheduled Provider:Loreta Padilla Location:[facility] Appointment Type:FM Open Appointment Date:05/12/2024 03:15:00 PM Scheduled Provider:Mario Evans MD Location:[facility] Appointment Type:[facility] Follow Up Future Scheduled Tests Laboratory* Cmgzl-5-Gmlejliudty 09/01/23 * Ceruloplasmin 09/01/23 * Antimitochondrial Antibody, [...] * PT 09/01/23 * Reticulocyte Count 04/04/24 [facility] Appointment Date:04/13/2024 09:00:00 AM Scheduled Provider:Kavon Lu DO [facility] Appoint[facility] Type:ONC Office Visit 20 (FT) Appointment Date:04/29/2024 09:00:00 AM Scheduled Provider:Loreta Padilla Location:[facility] Appointment Type: Open Appointment Date:05/12/2024 03:15:00 PM Scheduled Provider:Mario Evans MD Location:[facility] Appointment Type:BADH Follow Up Future Scheduled Tests Laboratory* Semxm-3-Lkvxwotrjac 09/01/23 * Ceruloplasmin 09/01/23 * Antimitochondrial Antibody, [...] * PT 09/01/23 * Reticulocyte Count 04/04/24 [facility] Appointment Date:05/05/2024 01:40:00 PM Scheduled Provider:Kavon Lu DO [facility] Appoint[facility] Type:ONC Office Visit 20 (FT) Appointment Date:05/12/2024 03:15:00 PM Scheduled Provider:Carrol MULTANI, Mario Xiong Location:[facility] Appointment Type:BADH Follow Up Appointment Date:07/29/2024 03:00:00 PM Scheduled Provider:Loreta Padilla Location:[facility] Appointment Type: Open Future Scheduled Tests Laboratory* Gyaua-0-Ftdvqsrvzdb 09/01/23 * Ceruloplasmin 09/01/23 * Antimitochondrial Antibody, [...] * PT 09/01/23 * Reticulocyte Count 04/27/24 [facility] Evaluation + Plan note Future Appointments Appointment Date:05/11/2024 09:00:00 AM Scheduled Provider:Kavon Lu DO [facility] Appointment Type:ONC Office Visit 20 (FT) Appointment Date:05/12/2024 03:15:00 PM Scheduled Provider:Mario Evans MD Location:[facility] Appointment Type:[facility] Follow Up Appointment Date:07/29/2024 03:00:00 PM Scheduled Provider:Loreta Padilla Location:[facility] Appointment Type:FM Open Diagnostic Tests Pending * Haptoglobin 05/06/24 Future Scheduled Tests Laboratory* Hbxts-7-Ehfjqupkspn 09/01/23 * Ceruloplasmin 09/01/23 * Antimitochondrial Antibody, [...] 07/24/23 * PT 07/24/23 * PT 09/01/23 [facility] Evaluation + Plan note Future Appointments Appointment Date:05/12/2024 03:15:00 PM Scheduled Provider:Mario Evans MD Location:[facility] Appointment Type:[facility] Follow Up Appointment Date:07/14/2024 02:40:00 PM Scheduled Provider:Kavon Lu DO [facility] Appointment Type:ONC Office Visit 20 (FT) Appointment Date:07/29/2024 03:00:00 PM Scheduled Provider:Loreta Padilla Location:[facility] Appointment Type:FM Open Future Scheduled Tests Laboratory* Antibody Screen 07/11/24 * Zdrbe-2-Ssbjxktlgvr 09/01/23 * Ceruloplasmin 09/01/23 * Antimitochondrial Antibody, [...] * Reticulocyte Count 07/11/24 * Transferrin 07/11/24 [facility] Evaluation + Plan note Future Appointments Appointment Date:05/24/2024 10:30:00 AM Scheduled Provider: [facility] Appointment Type:US Abdominal/Pelvis (FT) Appointment Date:06/09/2024 01:15:00 PM Scheduled Provider:Maroi Evans MD Location:[facility] Appointment Type:BADH Follow Up Appointment Date:07/14/2024 02:40:00 PM Scheduled Provider:Kavon Lu DO [facility] Appointment Type:ONC Office Visit 20 (FT) Appointment Date:07/29/2024 03:00:00 PM Scheduled Provider:Loreta Padilla Location:[facility] Appointment Type: Open [facility] Scheduled Tests Laboratory* Antibody Screen 07/11/24 * Cyugt-8-Zdmgqzolroc 09/01/23 * Eyphk-0-Pshgolecwzj 9/5/24 * Ceruloplasmin 09/01/23 * Ceruloplasmin 05/12/24 [...] * Transferrin 07/11/24 Radiology* US Liver 05/24/24 [facility] Evaluation + Plan note Future Appointments Appointment Date:07/14/2024 02:40:00 PM Scheduled Provider:Kavon Lu DO [facility] Appoint[facility] Type:ONC Office Visit 20 (FT) Appointment Date:07/29/2024 03:00:00 PM Scheduled Provider:Loreta Padilla Location:[facility] Appointment Type:FM Open Appointment Date:11/18/2024 08:15:00 AM Scheduled Provider: Location:[facility] Appointment Type:Surgery FT Appointment Date:11/21/2024 09:15:00 AM Scheduled Provider:Mario Evans MD Location:[facility] Appointment Type:[facility] Follow Up Future Scheduled Tests Laboratory* [...] * Transferrin 07/11/24 Radiology* US Liver 11/05/24 [facility] Evaluation + Plan note Future Appointments Appointment Date:07/14/2024 02:40:00 PM Scheduled Provider:Kavon Lu DO [facility] Appointment Type:ONC Office Visit 20 (FT) Appointment Date:07/29/2024 03:00:00 PM Scheduled Provider:Loreta Padilla Location:[facility] Appointment Type:FM Open Appointment Date:11/18/2024 08:15:00 AM Scheduled Provider: Location:[facility] Appointment Type:Surgery FT Appointment Date:11/21/2024 09:15:00 AM Scheduled Provider:Mario Evans MD Location:[facility] Appointment Type:BAD Follow Up Diagnostic [...] * PT 07/24/23 Radiology* US Liver 11/05/24 [facility] Evaluation + Plan note Future Appointments Appointment Date:08/19/2024 03:20:00 PM Scheduled Provider:Loreta Padilla Location:[facility] Appointment Type: Open Appointment Date:09/29/2024 01:20:00 PM Scheduled Provider:Kavon Lu DO [facility] Appointment Type:ONC Office Visit 20 (FT) Appointment Date:11/18/2024 08:15:00 AM Scheduled Provider: Location:[facility] Appointment Type:Surgery FT Appointment Date:11/21/2024 09:15:00 AM Scheduled Provider:Mario Evans MD Location:[facility] Appointment Type:[facility] Follow Up Future Scheduled Tests Laboratory* [...] * PT 07/24/23 Radiology* US Liver 11/05/24 [facility] Evaluation + Plan note Future Appointments Appointment Date:06/09/2024 01:15:00 PM Scheduled Provider:Mario Evans MD Location:[facility] Appointment Type:BADH Follow Up Appointment Date:07/14/2024 02:40:00 PM Scheduled Provider:Kavon Lu DO [facility] Appoint[facility] Type:ONC Office Visit 20 (FT) Appointment Date:07/29/2024 03:00:00 PM Scheduled Provider:Loreta Padilla Location:[facility] Appointment Type: Open Diagnostic Tests Pending * Gpyym-4-Jbkjedxecln 05/24/24 * GEOVANNA w/Reflex if POS 05/24/24 * Antimitochondrial Antibody, Quantitative 05/24/24 * Ceruloplasmin 05/24/24 * Acute Hepatitis A B C Panel 05/24/24 * Alpha Fetoprotein Tumor Marker 05/24/24 * Hepatitis B Surface Antibody 05/24/24 * Hepatitis B Surface Antigen 05/24/24 * Hepatitis A Virus (HAV) Antibody, Total 05/24/24 * IgG, Quant. 05/24/24 * Smooth Muscle Antibody Screen 05/24/24 * Tjrvh-1-Dpfxxuspcgt 05/24/24 * GEOVANNA w/Reflex if POS 05/24/24 [...] * Reticulocyte Count 07/11/24 * Transferrin 07/11/24 [facility] Evaluation + Plan note Future Appointments Appointment Date:09/29/2024 01:20:00 PM Scheduled Provider:Kavon Lu DO Location:.ONCOLOGY Appointment Type:ONC Office Visit 20 (FT) Appointment Date:11/15/2024 07:40:00 AM Scheduled Provider:Vic Carrion Location:[facility] Appointment Type: Open Appointment Date:11/18/2024 08:15:00 AM Scheduled Provider: Location:[facility] Appointment Type:Surgery FT Appointment Date:11/21/2024 09:15:00 AM Scheduled Provider:Mario Evans MD Location:[facility] Appointment Type:BADH Follow Up Future [...] * PT 07/24/23 Radiology* US Liver 11/05/24 [facility] Evaluation + Plan note Future Appointments Appointment Date:09/29/2024 01:20:00 PM Scheduled Provider:Kavon Lu DO Location:.ONCOLOGY Appointment Type:ONC Office Visit 20 (FT) Appointment Date:10/05/2024 09:00:00 AM Scheduled Provider:Vic Carrion Location:[facility] Appointment Type:FM Open Appointment Date:11/18/2024 08:15:00 AM Scheduled Provider: Location:[facility] Appointment Type:Surgery FT Appointment Date:11/21/2024 09:15:00 AM Scheduled Provider:Mario Evans MD Location:[facility] Appointment Type:[facility] Follow Up Diagnostic Tests Pending * [...] * PT 07/24/23 Radiology* US Liver 11/05/24 [facility] Evaluation + Plan note Future Appointments Appointment Date:10/05/2024 09:00:00 AM Scheduled Provider:Vic Carrion Location:[facility] Appointment Type:FM Open Appointment Date:11/11/2024 08:30:00 AM Scheduled Provider: [facility] Appointment Type:US Abdominal/Pelvis (FT) Appointment Date:11/18/2024 08:15:00 AM Scheduled Provider: Location:[facility] Appointment Type:Surgery FT Appointment Date:11/21/2024 09:15:00 AM Scheduled Provider:Mario Evans MD Location:[facility] Appointment Type:BADH Follow Up Appointment Date:09/28/2025 02:40:00 PM Scheduled Provider:Kavon Lu DO [facility] Appoint[facility] Type:ONC Office Visit 20 (FT) Future [...] B12 Level 09/25/25 Radiology* US Liver 11/11/24 [facility] Evaluation + Plan note Future Appointments Appointment Date:11/11/2024 08:30:00 AM Scheduled Provider: [facility] Appointment Type:US Abdominal/Pelvis (FT) Appointment Date:11/18/2024 08:15:00 AM Scheduled Provider: Location:[facility] Appointment Type:Surgery FT Appointment Date:11/21/2024 09:15:00 AM Scheduled Provider:Mario Evans MD Location:[facility] Appointment Type:BADH Follow Up Appointment Date:04/07/2025 08:40:00 AM Scheduled Provider:Vic Carrion Location:[facility] Appointment Type:FM Open Appointment Date:09/28/2025 02:40:00 PM Scheduled Provider:Kavon Lu DO [facility] Appointment Type:ONC Office Visit 20 (FT) Future [...] B12 Level 09/25/25 Radiology* US Liver 11/11/24 [facility] Evaluation + Plan note Future Appointments Appointment Date:11/11/2024 08:30:00 AM Scheduled Provider: [facility] Appointment Type:US Abdominal/Pelvis (FT) Appointment Date:11/18/2024 08:15:00 AM Scheduled Provider: Location:[facility] Appointment Type:Surgery FT Appointment Date:11/21/2024 09:15:00 AM Scheduled Provider:Mario Evans MD Location:[facility] Appointment Type:BADH Follow Up Appointment [...] B12 Level 09/25/25 Radiology* US Liver 11/11/24 [facility] Evaluation + Plan note Future Appointments Appointment Date:11/21/2024 08:30:00 AM Scheduled Provider:Sadie Loco PA-C [facility] App[facility] Type:Pain Management - Follow Up (FT) Appointment Date:11/21/2024 09:15:00 AM Scheduled Provider:Mario Evans MD Location:[facility] Appointment Type:BADH Follow Up Appointment Date:04/07/2025 08:40:00 AM Scheduled Provider:Vic Carrion Location:[facility] Appointment Type:FM Open Appointment Date:09/28/2025 02:40:00 PM Scheduled Provider:Kavon Lu DO [facility] Appointment Type:ONC Office Visit 20 (FT) Future [...] B12 Level 09/25/25 Radiology* US Liver 05/08/25 [facility] Evaluation + Plan note Future Appointments Appointment Date:04/07/2025 08:40:00 AM Scheduled Provider:Vic Carrion Location:[facility] Appointment Type: Open Appointment Date:09/28/2025 02:40:00 PM [...] B12 Level 09/25/25 Radiology* US Liver 05/08/25 [facility] Evaluation + Plan note Future Appointments Appointment Date:12/20/2024 08:15:00 AM Scheduled Provider:Sadie Loco PA-C [facility] Appointment Type:Pain Management - Follow Up (FT) Appointment Date:04/07/2025 08:40:00 AM Scheduled Provider:Vic Carrion Location:[facility] Appointment Type:FM Open Appointment Date:09/28/2025 02:40:00 PM Scheduled Provider:Kavon Lu DO [facility] Appointment Type:ONC Office Visit 20 (FT) Future [...] B12 Level 09/25/25 Radiology* US Liver 05/08/25 [facility] evaluation note* Diagnosis Hemolytic anemia (HCC)- [...] cholecystitis or obstruction [facility] Diagnosis Coagulation defect (HCC)- Primary Other and unspecified coagulation defects Alcoholic fatty liver Hyperbilirubinemia Disorders of bilirubin excretion Alcoholic hepatitis, unspecified whether ascites present (HCC) [facility] Diagnosis 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, unspecified site [facility] Diagnosis Lymphedema- Primary Other noninfectious lymphedema documented [facility]* Diagnosis Other chronic pain- Primary Spinal cord stimulator status documented [facility] Narrative - Reported* Type Description Date Medical History anxiety Medical History LIVER ISSUES Surgical History fx jaw Hospitalization History LIVER ISSUES 2021 [facility] Other Hospital course Narrative No data available for this section [facility] No data available for this section [facility] Discharge instructions* Attachments The following attachments cannot be sent through Care Everywhere. * Moderate Sedation in Adults Discharge Instructions (Haitian) * Liver Biopsy Discharge Instructions (Haitian) documented in this encounter[facility]HealthInstructionsNot on filedocumented in this encounterPro[facility] SystemInstructionsNot on filedocumented in this encounterProBucyrus [facility] SystemInstructionsNot on filedocumented in this encounterProBucyrus [facility] SystemInstructionsNot on filedocumented in this encounterPro[facility] SystemProgress note No data available for this section [facility] (narrative)* Tests/Procedures (Routine) - Authorized Specialty Diagnoses / Procedures Referred By Contact Referred To Contact Cardiovascular Testing Diagnoses Bilateral swelling of feet and ankles Tanvir Black MD [address] [facility] [place] [id number] [facility] CARD NON INVASIVE [address] [place] [address] Referral ID Status Reason Start Date Expiration Date V isits Requested Visits Authorized [id number] Authorized 03/13/2022 03/13/2023 1 1 Scheduling Instructions [...] call the [facility] at [phone] (BEAT) if you are unable to keep [...] SpO2 100 %. [facility] Narrative* Auth/Cert Specialty Diagnoses / Procedures Referred By Taya hope Referred To Contact Case Management Diagnoses Acute Liver Failure Procedures [employer] [place] [address] Phone: [phone] [employer] [place] [address] Phone: [phone] Referral ID Status Reason Start Date Expiration Date Visits Re quested Visits Authorized [id number] 3 3 [facility] for visit Narrative* Tests/Procedures (Routine) - Closed Specialty Diagnoses / Procedures Referred By Contact Referred To Contact Cardiovascular Testing Diagnoses Bilateral swelling of feet and ankles Tanvir Black MD [address] [place], [place] [address] [address] [facility] CARD NON INVASIVE [facility] [place] [address] Referral ID Status Reason Start Date Expiration Date Visits Re quested Visits Authorized [id number] Closed 03/13/2022 03/13/2023 1 1 [facility] for visit Narrative* Neuropsych Testing (Routine) - Closed Specialty Diagnoses / Procedures Referred By Taya hope Referred To Contact Neurology Diagnoses Other specified mononeuropathies of unspecified lower limb Procedures [place] NEUROPSYCHOLOGICAL TST EVAL PHYS/QHP EA ADDL HR Evelio Carr, DO [address] [place] [address] Phone: tel: fax: Alex Margoth, DO [address] [place] [address] Phone: tel: fax: Referral ID Status Reason Start Date Expiration Date V isits Requested Visits Authorized [id number] Closed Specialty Services Required 01/13/2025 07/12/2025 1 1 [facility] Healthcare Reason for Referral Specialty Diagnoses / Procedures Referred By Contac t Referred To Contact Diagnoses Alcoholic fatty liver Hyperbilirubinemia Alcoholic hepatitis, unspecified whether ascites present (HCC) Procedures XA HEPATIC VENOGRAM W/ HEMODYN (CHRISTIANO) Marcello Ibanez MD [address] [place] [address] S INTERVENTIONAL RAD [address] [place] [address] Referral ID Status Reason Start Date Expiration Date Visits Re quested Visits Authorized [id number] Closed 01/20/2023 01/20/2024 1 1 Specialty Diagnoses / Procedures Referred By Contac t Referred To Contact Radiology Diagnoses Alcoholic cirrhosis of liver without ascites (HCC) Procedures XA TRANSJUGULAR LIVER BIOPSY (CHRISTIANO) XA INTERVENTIONAL RADIOLOGY PROCEDURE SERVICE Marcello Ibanez MD [address] [place] [address] [facility] [address] [place] [address] Referral ID Status Reason Start Date Expiration Date V isits Requested Visits Authorized [id number] Authorized 10/27/2022 10/27/2023 1 1 Specialty Diagnoses / Procedures Referred By Contac t Referred To Contact Radiology Diagnoses Rib pain Procedures XR RIBS LT UNILAT W/PA CHEST Theo Burks MD [address] [place] [address] [place] [address] S DIAGNOSTIC RADIOLOGY [address] [place] [address] [place] [address] Referral ID Status Reason Start Date Expiration Date V isits Requested Visits Authorized [id number] Authorized 12/15/2022 12/15/2023 1 1 Specialty Diagnoses / Procedures Referred By Contac t Referred To Contact Diagnoses Theo Molina MD [address] [place] [address] Referral ID Status Reason Start Date Expiration Date V isits Requested Visits Authorized [id number] Pending Review 3 3 Specialty Diagnoses / Procedures Referred By Contac t Referred To Contact Diagnoses Iron deficiency anemia, unspecified iron deficiency anemia type Alcoholic cirrhosis, unspecified whether ascites present (HCC) Alcoholic cirrhosis of liver without ascites (HCC) Tanvir Black MD [address] [place] [address] [place] [address] Referral ID Status Reason Start Date Expiration Date Visits Re quested Visits Authorized [id number] Closed 3 3 Specialty Diagnoses / Procedures Referred By Contac t Referred To Contact Radiology Diagnoses Alcoholic cirrhosis of liver without ascites (HCC) Procedures XA TRANSJUGULAR LIVER BIOPSY (CHRISTIANO) XA INTERVENTIONAL RADIOLOGY PROCEDURE SERVICE Marcello Ibanez MD [address] [place] [address] [facility] [address] [place] [address] Referral ID Status Reason Start Date Expiration Date V isits Requested Visits Authorized [id number] Authorized 10/27/2022 10/27/2023 1 1 Specialty Diagnoses / Procedures Referred By Contac t Referred To Contact Diagnoses Urinary tract infection without hematuria, site unspecified Leg swelling Tanvir Black MD [address] [place] [address] [place] [address] [facility] [facility] [address] [place] [address] Referral ID Status Reason Start Date Expiration Date V isits Requested Visits Authorized [id number] Authorized 08/21/2022 02/17/2023 3 3 Scheduling Instructions Please call Internal Medicine at to schedule an appointment. Specialty Diagnoses / Procedures Referred By Contac t Referred To Contact Radiology Diagnoses Lower extremity edema Procedures US LEG RIGHT VENOUS + DOPPLER Tanvir Black MD [address] [facility] [place] [address] [facility] [address] [place] [address] Referral ID Status Reason Start Date Expiration Date Visits Re quested Visits Authorized [id number] Closed 08/14/2022 08/14/2023 1 1 Specialty Diagnoses / Procedures Referred By Contac t Referred To Contact Radiology Diagnoses Iron deficiency anemia, unspecified iron deficiency anemia type Alcoholic cirrhosis, unspecified whether ascites present (HCC) Procedures US HEP PORT SPLEN VEIN + DOPPLER Saskia Madison, ARMAMENT MECHANIC-FRENCH BINDING FOLDER [address] [facility] [place] [address] S ULTRASOUND [address] [place] [address] Referral ID Status Reason Start Date Expiration Date V isits Requested Visits Authorized [id number] Authorized 08/14/2022 08/14/2023 1 1 Specialty Diagnoses / Procedures Referred By Contac t Referred To Contact Radiology Diagnoses Iron deficiency anemia, unspecified iron deficiency anemia type Alcoholic cirrhosis, unspecified whether ascites present (HCC) Procedures US LIVER/GALL BLADDER/PANCREAS Saskia Madison, ARMAMENT MECHANIC-FRENCH BINDING FOLDER [address] [place] [address] [place] [address] S [facility] [address] [place] [address] Referral ID Status Reason Start Date Expiration Date V isits Requested Visits Authorized [id number] Authorized 08/14/2022 08/14/2023 1 1 Specialty Diagnoses / Procedures Referred By Contac t Referred To Contact Afua Umanzor MD [address] [place] [address] Referral ID Status Reason Start Date Expiration Date V isits Requested Visits Authorized [id number] Pending Review 3 3 Referral ID Status Reason Start Date Expiration Date V isits Requested Visits Authorized [id number] Pending Review 3 3 Specialty Diagnoses / Procedures Referred By Contac t Referred To Contact Gastroenterology Diagnoses Alcoholic cirrhosis of liver without ascites (HCC) Afua mUanzor MD [address] [place] [address] [facility] [address] [place] [address] Referral ID Status Reason Start Date Expiration Date V isits Requested Visits Authorized [id number] Authorized 01/17/2022 01/17/2023 3 3 Scheduling Instructions [...] antibody (HCC) Thrombocytopenia (HCC) Afua Umanzor MD [address] [place] [address] [facility] HEMATOLOGY [address] [place] [address] Referral ID Status Reason Start Date Expiration Date V isits Requested Visits Authorized [id number] Authorized 01/17/2022 01/17/2023 3 3 Scheduling Instructions Please call the [facility] at [phone] to schedule an appointment if one was not made for you today. Specialty Diagnoses / Procedures Referred By Taya t Referred To Contact Diagnoses Tear of left biceps muscle, initial encounter Afua Umanzor MD [address] [place] [address] [facility] ORTHO HAND [address] [place] [address] Referral ID Status Reason Start Date Expiration Date V isits Requested Visits Authorized [id number] Authorized 01/17/2022 01/17/2023 3 3 Scheduling Instructions Please call the [facility] at [phone] to schedule an appointment if one was not made for you today. Question Answer Adult patient to be evaluated for: Elbow - Bicep Tear - Left [5] Comments No prior visits in PM&R No prior visits in Orthopedics Specialty Diagnoses / Procedures Referred By Contac t Referred To Contact Radiology Procedures US HEP PORT SPLEN VEIN + DOPPLER Ccp [address] [address] [facility] ULTRASOUND [address] [place] [address] Referral ID Status Reason Start Date Expiration Date Visits Re quested Visits Authorized [id number] Closed 01/10/2022 01/10/2023 1 1 Specialty Diagnoses / Procedures Referred By Contac t Referred To Contact Radiology Procedures US SPLEEN US SPLEEN Ccp [address] [address] [facility] ULTRASOUND [address] [place] [address] Referral ID Status Reason Start Date Expiration Date Visits Re quested Visits Authorized [id number] Closed 01/09/2022 01/09/2023 1 1 Specialty Diagnoses / Procedures Referred By Contac t Referred To Contact Radiology Procedures XR ABDOMEN 1 VIEW AP Ccp [address] [address] [facility] DIAGNOSTIC RADIOLOGY [address] [place] [address] [place] [address] Referral ID Status Reason Start Date Expiration Date Visits Re quested Visits Authorized [id number] Closed 01/09/2022 01/09/2023 1 1 Specialty Diagnoses / Procedures Referred By Contac t Referred To Contact Radiology Procedures XR ORBITS Ccp [address] [address] [facility] DIAGNOSTIC RADIOLOGY [address] [place] [address] [place] [address] Referral ID Status Reason Start Date Expiration Date Visits Re quested Visits Authorized [id number] Closed 01/08/2022 01/08/2023 1 1 Specialty Diagnoses / Procedures Referred By Contac t Referred To Contact Radiology Procedures US ASCITES SURVEY 4 QUADRANTS Ccp [address] [address] [facility] ULTRASOUND [address] [place] [address] Referral ID Status Reason Start Date Expiration Date Visits Re quested Visits Authorized [id number] Closed 01/08/2022 01/08/2023 1 1 Specialty Diagnoses / Procedures Referred By Contac t Referred To Contact Radiology Procedures US LIVER/GALL BLADDER/PANCREAS Ccp 3 Jim [address]pe [address] [place] [address] [facility] ULTRASOUND [address] [place] [address] Referral ID Status Reason Start Date Expiration Date Visits Re quested Visits Authorized [id number] Closed 01/08/2022 01/08/2023 1 1 Specialty Diagnoses / Procedures Referred By Contac t Referred To Contact Radiology Procedures XRAY CHEST IMAGE IMPORT(CHRISTIANO) Ivy Chua MD [address] [place] [address] [facility] DIAGNOSTIC RADIOLOGY [address] [place] [address] [place] [address] Referral ID Status Reason Start Date Expiration Date Visits Re quested Visits Authorized [id number] Closed 01/08/2022 01/08/2023 1 1 Specialty Diagnoses / Procedures Referred By Contac t Referred To Contact Radiology Procedures CT BODY IMAGE IMPORT(CHRISTIANO) DOWNLOAD POWERSH[facility] Ivy Chua MD [address] [place] [address] [facility] DIAGNOSTIC RADIOLOGY [address] [place] [address] [place] [id number] Referral ID Status Reason Start Date Expiration Date Visits Re quested Visits Authorized [id number] Closed 01/08/2022 01/08/2023 1 1 Specialty Diagnoses / Procedures Referred By Contac t Referred To Contact Radiology Procedures XR HUMERUS LEFT Ccp 3 [place] [phone] [facility] DIAGNOSTIC RADIOLOGY [address] [place] [address] [place] [address] Referral ID Status Reason Start Date Expiration Date Visits Re quested Visits Authorized [id number] Closed 01/08/2022 01/08/2023 1 1 Specialty Diagnoses / Procedures Referred By Contac t Referred To Contact Radiology Procedures XR ELBOW LEFT MINIMUM 3 VIEWS Ccp [address] [place], [place] [id number] [facility] DIAGNOSTIC RADIOLOGY [address] [place] [address] [place] [address] Referral ID Status Reason Start Date Expiration Date Visits Re quested Visits Authorized [id number] Closed 01/08/2022 01/08/2023 1 1 Advance Directives [...] Transdermal, EVERY 7 DAYS, First dose on [facility] 01/09/22 at 1400, Until Discontinued 1446 (Patch [...] Oral, STAT, 1 dose, On Thu08/15/22 at 7916 1502 (Given - Provid er: Mercedes Zapata RN) Reason for Visit (unrecogniz ed section and content) Reason Onset Date Comments Prior Authorization 01/21/2022 Reason Onset Date Comments Specialty Pharmacy Referral 02/11/2022 [facility] referral- no PA needed Specialty Diagnoses / Procedures Referred By Contac t Referred To Contact Hematology Diagnoses 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) Thrombocytopenia (HCC) Afua Umanzor MD [address] [place] [address] [facility] HEMATOLOGY [address] [place] [address] Referral ID Status Reason Start Date Expiration Date V isits Requested Visits Authorized [id number] Authorized 01/17/2022 01/17/2023 3 3 Reason Comments Blood test Reason Comments Monitoring/follow-up Fatigue nausea and vomiting Reason Comments AIHA On cellcept Cirrhosis/other liver disease Reason Comments New patient, to establish relationship Specialty Diagnoses / Procedures Referred By Contac t Referred To Contact Gastroenterology Diagnoses Alcoholic cirrhosis of liver without ascites (HCC) Tanvir Black MD [address] [place] [address] [facility] [address] [place] [address] Referral ID Status Reason Start Date Expiration Date V isits Requested Visits Authorized [id number] Authorized 05/06/2022 05/06/2023 3 3 Reason Comments [...] INTERVENTIONAL RADIOLOGY PROCEDURE SERVICE Marcello Ibanez MD [address] [place] [address] [facility] ULTRASOUND [address] [place] [address] Referral ID Status Reason Start Date Expiration Date V isits Requested Visits Authorized [id number] Authorized 10/27/2022 10/27/2023 [address] angio abd aorta runoff, r/o PAD, - DVT, normal Reason Comments ANGIO RLE 04/26 Pain level 4/10 Care Team (unrecognized sect ion and content) Mental Hygienist Relationship Specialty Start Date End Date Theo Burks MD [address] [place] [address] [place], [place] [id number] PCP - General Family Medicine 08/25/22 Mental Hygienist Relationship Specialty Start Date End Date Theo Burks MD [address] [place] [address] [address] [place], [place] [id number] PCP - General Family Medicine 08/25/22 Mental Hygienist Relationship Specialty Start Date End Date Theo Burks MD [address] [place] [address] [place], [place] [id number] PCP - General Family Medicine 08/25/22 Mental Hygienist Relationship Specialty Start Date End Date Theo Burks MD [address] [place] [address] [place] [address] PCP - General Family Medicine 08/25/22 Mental Hygienist Relationship Specialty Start Date End Date Theo Burks MD [address] [place] [address] [address] [place], [place] [id number] PCP - General Family Medicine 08/25/22 Abbey Alvarez MD [address] [place] [address] [place] [address] Fellow Gastroenterology 09/13/22 Saskia Madison, LIBAN-FRENCH BINDING FOLDER [address] [place] [address] [place] [address] ENGINE RESEARCH ENGINEER Gastroenterology 09/13/22 Mental Hygienist Relationship Specialty Start Date End Date Theo Burks MD [address] [place] [address] [place] [address] PCP - General Family Medicine 08/25/22 Abbey Alvarez MD [address] [place] [address] [place] [address] Fellow Gastroenterology 09/13/22 Saskia Madison, LIBAN-FRENCH BINDING FOLDER [address] [place] [address] [place] [address] ENGINE RESEARCH ENGINEER Gastroenterology 09/13/22 Mental Hygienist Relationship Specialty Start Date End Date Theo Burks MD [address] [place] [address] [place] [address] PCP - General Family Medicine 08/25/22 Abbey Alvarez MD [address] [place] [address] [place] [address] Fellow Gastroenterology 09/13/22 Saskia Madison, LIBAN-FRENCH BINDING FOLDER [address] [place] [address] [place] [address] ENGINE RESEARCH ENGINEER Gastroenterology 09/13/22 Mental Hygienist Relationship Specialty Start Date End Date Theo Burks MD [address] [place] [address] [place] [address] PCP - General Family Medicine 08/25/22 Abbey Alvarez MD [address] [place] [address] [place] [address] Fellow Gastroenterology 09/13/22 Saskia Madison APRN-FRENCH BINDING FOLDER [address] [place] [address] [place] [address] ENGINE RESEARCH ENGINEER Gastroenterology 09/13/22 Mental Hygienist Relationship Specialty Start Date End Date Theo Burks MD [address] [place] [address] [place] [address] PCP - General Family Medicine 08/25/22 Abbey Alvarez MD [address] [place] [address] [place] [address] Fellow Gastroenterology 09/13/22 Saskia Madison APRN-FRENCH BINDING FOLDER [address] [place] [address] [place] [address] ENGINE RESEARCH ENGINEER Gastroenterology 09/13/22 Mental Hygienist Relationship Specialty Start Date End Date Theo Burks MD [address] [place] [address] [place] [address] PCP - General Family Medicine 08/25/22 Abbey Alvarez MD [address] [place] [address] [place] [address] Fellow Gastroenterology 09/13/22 Saskia Madison APRN-FRENCH BINDING FOLDER [address] [place] [address] [place] [address] ENGINE RESEARCH ENGINEER Gastroenterology 09/13/22 Mental Hygienist Relationship Specialty Start Date End Date Theo Burks MD [address] [place] [address] [place] [address] PCP - General Family Medicine 08/25/22 Abbey Alvarez MD [address] [place] [address] [place] [address] Fellow Gastroenterology 09/13/22 Saskia Madison ARMAMENT MECHANIC-FRENCH BINDING FOLDER [address] [place] [address] [place] [address] ENGINE RESEARCH ENGINEER Gastroenterology 09/13/22 Mental Hygienist Relationship Specialty Start Date End Date Thoe Burks MD [address] [place] [address] [place] [address] PCP - General Family Medicine 08/25/22 Abbey Alvarez MD [address] [place] [address] [place] [address] Fellow Gastroenterology 09/13/22 Saskia Madison, ARMAMENT MECHANIC-FRENCH BINDING FOLDER [address] [place] [address] [place] [address] ENGINE RESEARCH ENGINEER Gastroenterology 09/13/22 Mental Hygienist Relationship Specialty Start Date End Date Theo Burks MD [address] [place] [address] [place] [address] PCP - General Family Medicine 08/25/22 Abbey Alvarez MD [address] [place] [address] [place] [address] Fellow Gastroenterology 09/13/22 Saskia Madison, ARMAMENT MECHANIC-FRENCH BINDING FOLDER [address] [place] [address] [place] [address] ENGINE RESEARCH ENGINEER Gastroenterology 09/13/22 Mental Hygienist Relationship Specialty Start Date End Date Theo Burks MD [address] [place] [address] [place] [address] PCP - General Family Medicine 08/25/22 Abbey Alvarez MD [address] [place] [address] [place] [address] Fellow Gastroenterology 09/13/22 Saskia Madison, ARMAMENT MECHANIC-FRENCH BINDING FOLDER [address] [place] [address] [place] [address] ENGINE RESEARCH ENGINEER Gastroenterology 09/13/22 Marcello Ibanez MD [address] [place] [address] [place] [address] Fellow Gastroenterology 11/08/22 Mental Hygienist Relationship Specialty Start Date End Date Theo Burks MD [address] [place] [address] [place] [address] PCP - General Family Medicine 08/25/22 Abbey Alvarez MD [address] [place] [address] [place] [address] Fellow Gastroenterology 09/13/22 Saskia Madison, ARMAMENT MECHANIC-FRENCH BINDING FOLDER [address] [place] [address] [place] [address] ENGINE RESEARCH ENGINEER Gastroenterology 09/13/22 Marcello Ibanez MD [address] [place] [address] Fellow Gastroenterology 11/08/22 Mental Hygienist Relationship Specialty Start Date End Date Theo Burks MD [address] [place] [address] [place] [address] PCP - General Family Medicine 08/25/22 Abbey Alvarez MD [address] [place] [address] [place] [address] Fellow Gastroenterology 09/13/22 Saskia Madison, ARMAMENT MECHANIC-FRENCH BINDING FOLDER [address] [place] [address] [place] [address] ENGINE RESEARCH ENGINEER Gastroenterology 09/13/22 Marcello Ibanez MD [address] [place] [address] Fellow Gastroenterology 11/08/22 Mental Hygienist Relationship Specialty Start Date End Date Theo Burks MD [address] [place] [address] [place] [address] PCP - General Family Medicine 08/25/22 Abbey Alvarez MD [address] [place] [address] [place] [address] Fellow Gastroenterology 09/13/22 Saskia Madison APRN-FRENCH BINDING FOLDER [address] [place] [address] [place] [address] ENGINE RESEARCH ENGINEER Gastroenterology 09/13/22 Marcello Ibanez MD [address] [place] [address] Fellow Gastroenterology 11/08/22 Mental Hygienist Relationship Specialty Start Date End Date Theo Burks MD [address] [place] [address] [place] [address] PCP - General Family Medicine 08/25/22 Abbey Alvarez MD [address] [place] [address] [place] [address] Fellow Gastroenterology 09/13/22 Saskia Madison, LIBAN-FRENCH BINDING FOLDER [address] [place] [address] [place] [address] ENGINE RESEARCH ENGINEER Gastroenterology 09/13/22 Marcello Ibanez MD [address] [place] [address] Fellow Gastroenterology 11/08/22 Mental Hygienist Relationship Specialty Start Date End Date Theo Burks MD [address] [place] [address] [place] [address] PCP - General Family Medicine 08/25/22 Abbey Alvarez MD [address] [place] [address] [place] [address] Fellow Gastroenterology 09/13/22 Saskia Madison APRN-FRENCH BINDING FOLDER [address] [place] [address] [place] [address] ENGINE RESEARCH ENGINEER Gastroenterology 09/13/22 Marcello Ibanez MD [address] [place] [address] Fellow Gastroenterology 11/08/22 Mental Hygienist Relationship Specialty Start Date End Date Theo Burks MD [address] [place] [address] [place] [address] PCP - General Family Medicine 08/25/22 Abbey Alvarez MD [address] [place] [address] [place] [address] Fellow Gastroenterology 09/13/22 Saskia Madison, ARMAMENT MECHANIC-FRENCH BINDING FOLDER [address] [place] [address] [place] [address] ENGINE RESEARCH ENGINEER Gastroenterology 09/13/22 Marcello Ibanez MD [address] [place] [address] Fellow Gastroenterology 11/08/22 Mental Hygienist Relationship Specialty Start Date End Date Theo Burks MD [address] [place] [address] [place] [address] PCP - General Family Medicine 08/25/22 Abbey Alvarez MD [address] [place] [address] [place] [address] Fellow Gastroenterology 09/13/22 Saskia Madison, ARMAMENT MECHANIC-FRENCH BINDING FOLDER [address] [place] [address] [place] [address] ENGINE RESEARCH ENGINEER Gastroenterology 09/13/22 Marcello Ibanez MD [address] [place] [address] Fellow Gastroenterology 11/08/22 Mental Hygienist Relationship Specialty Start Date End Date Theo Burks MD [address] [place] [address] [place] [address] PCP - General Family Medicine 08/25/22 Abbey Alvarez MD [address] [place] [address] [place] [address] Fellow Gastroenterology 09/13/22 Saskia Madison APRN-DAYAMI [address] [place] [address] [place] [address] ENGINE RESEARCH ENGINEER Gastroenterology 09/13/22 Marcello Ibanez MD [address] [place] [address] Fellow Gastroenterology 11/08/22 Mental Hygienist Relationship Specialty Start Date End Date Theo Burks MD [address] [place] [address] [place] [address] PCP - General Family Medicine 08/25/22 Abbey Alvarez MD [address] [place] [address] [place] [address] Fellow Gastroenterology 09/13/22 Saskia Madison APRN-FRENCH BINDING FOLDER [address] [place] [address] [place] [address] ENGINE RESEARCH ENGINEER Gastroenterology 09/13/22 Marcello Ibanez MD [address] [place] [address] Fellow Gastroenterology 11/08/22 Mental Hygienist Relationship Specialty Start Date End Date Theo Burks MD [address] [place] [address] [place] [address] PCP - General Family Medicine 08/25/22 Abbey Alvarez MD [address] [place] [address] [place] [address] Fellow Gastroenterology 09/13/22 Saskia Madison APRN-FRENCH BINDING FOLDER [address] [place] [address] [place] [address] ENGINE RESEARCH ENGINEER Gastroenterology 09/13/22 Marcello Ibanez MD [address] [place] [address] Fellow Gastroenterology 11/08/22 Mental Hygienist Relationship Specialty Start Date End Date Theo Burks MD [address] [place] [address] [place] [address] PCP - General Family Medicine 08/25/22 Abbey Alvarez MD [address] [place] [address] [place] [address] Fellow Gastroenterology 09/13/22 Saskia Madison APRN-FRENCH BINDING FOLDER [address] [place] [address] [place] [address] ENGINE RESEARCH ENGINEER Gastroenterology 09/13/22 Marcello Ibanez MD [address] [place] [address] Fellow Gastroenterology 11/08/22 Mental Hygienist Relationship Specialty Start Date End Date Theo Burks MD [address] [place] [address] [place] [address] PCP - General Family Medicine 08/25/22 Abbey Alvarez MD [address] [place] [address] [place] [address] Fellow Gastroenterology 09/13/22 Saskia Madison APRN-FRENCH BINDING FOLDER [address] [place] [address] [place] [address] ENGINE RESEARCH ENGINEER Gastroenterology 09/13/22 Marcello Ibanez MD [address] [place] [address] Fellow Gastroenterology 11/08/22 Mental Hygienist Relationship Specialty Start Date End Date Theo Burks MD [address] [place] [address] [place] [address] PCP - General Family Medicine 08/25/22 Abbey Alvarez MD [address] [place] [address] [place] [address] Fellow Gastroenterology 09/13/22 Saskia Madison APRN-FRENCH BINDING FOLDER [address] [place] [address] [place] [address] ENGINE RESEARCH ENGINEER Gastroenterology 09/13/22 Marcello Ibanez MD [address] [place] [address] Fellow Gastroenterology 11/08/22 Mental Hygienist Relationship Specialty Start Date End Date Theo Burks MD [address] [place] [address] [place] [address] PCP - General Family Medicine 08/25/22 Abbey Alvarez MD [address] [place] [address] [place] [address] Fellow Gastroenterology 09/13/22 Saskia Madison APRN-FRENCH BINDING FOLDER [address] [place] [address] [place] [address] ENGINE RESEARCH ENGINEER Gastroenterology 09/13/22 Marcello Ibanez MD [address] [place] [address] Fellow Gastroenterology 11/08/22 Mental Hygienist Relationship Specialty Start Date End Date Teho Burks MD [address] [place] [address] [place] [address] PCP - General Family Medicine 08/25/22 Abbey Alvarez MD [address] [place] [address] [place] [address] Fellow Gastroenterology 09/13/22 Saskia Madison APRN-FRENCH BINDING FOLDER [address] [place] [address] [place] [address] ENGINE RESEARCH ENGINEER Gastroenterology 09/13/22 Marcello Ibanez MD [address] [place] [address] Fellow Gastroenterology 11/08/22 Mental Hygienist Relationship Specialty Start Date End Date Theo Burks MD [address] [place] [address] [place] [address] PCP - General Family Medicine 08/25/22 Abbey Alvarez MD [address] [place] [address] [place] [address] Fellow Gastroenterology 09/13/22 Saskia Madison APRN-FRENCH BINDING FOLDER [address] [place] [address] [place] [address] ENGINE RESEARCH ENGINEER Gastroenterology 09/13/22 Marcello Ibanez MD [address] [place] [address] Fellow Gastroenterology 11/08/22 Mental Hygienist Relationship Specialty Start Date End Date Theo Burks MD [address] [facility] [facility] [place] [address] PCP - General Family Medicine 08/25/22 Abbey Alvarez MD [address] [place] [address] [place] [address] Fellow Gastroenterology 09/13/22 Saskia Madison, LIBAN-FRENCH BINDING FOLDER [address] [place] [address] [place] [address] ENGINE RESEARCH ENGINEER Gastroenterology 09/13/22 Marcello Ibanez MD [address] [place] [address] [place] [address] Fellow Gastroenterology 11/08/22 Mental Hygienist Relationship Specialty Start Date End Date Josiane Mccullough MD [address] [place] [address] PCP - General Family Medicine 07/18/13 Josiane Mccullough MD [address] [place] [address] 07/18/13 Mental Hygienist Relationship Specialty Start Date End Date Theo Burks MD [address] [place] [address] [place] [address] PCP - General Family Medicine 08/25/22 Abbey Alvarez MD [address] [place] [address] [place] [address] Fellow Gastroenterology 09/13/22 Saskia Madison ARMAMENT MECHANIC-FRENCH BINDING FOLDER [address] [place] [address] [place] [address] ENGINE RESEARCH ENGINEER Gastroenterology 09/13/22 Marcello Ibanez MD [address] [place] [address] Fellow Gastroenterology 11/08/22 Mental Hygienist Relationship Specialty Start Date End Date Loreta Cummings APRN-FRENCH BINDING FOLDER [address] [facility] [address] [place] [address] PCP - General Emergency Medicine 04/21/24 Mental Hygienist Relationship Specialty Start Date End Date Loreta Cummings APRN-FRENCH BINDING FOLDER [address] [facility] [address] [place] [address] PCP - General Emergency Medicine 04/21/24 Mental Hygienist Relationship Specialty Start Date End Date Cristina Chung MD [address] [place] [phone] PCP - General Family Medicine 01/13/25 Evelio Carr DO [address] [place] [address] Referring Physician Pain Medicine 01/13/25 Mental Hygienist Relationship Specialty Start Date End Date Cristina Chung MD [address] [place] [phone] PCP - General Family Medicine 01/13/25 Evelio Carr DO [address] [place] [address] Referring Physician Pain Medicine 01/13/25 Source Comments (unrecognize d section and content) In the event this informatio n is protected by the [facility] Confidentiality of Alcohol and Drug Abuse Patient Records regulations: The Federal rules restrict any use of the information to criminally investigate or prosecute any alcohol or drug abuse patient.[facility] (unrecognized sect ion and content) No [...] section and content) DATE CREATED AUTHOR 01/01/2024 [facility] DATE CREATED AUTHOR AUTHOR'S ORGANIZ ATION 02/21/2024 [facility] DATE CREATED AUTHOR AUTHOR'S ORGANIZ ATION 03/04/2024 [facility] DATE CREATED AUTHOR AUTHOR'S ORGANIZ ATION 03/05/2024 [facility] DATE CREATED AUTHOR AUTHOR'S ORGANIZ ATION 03/11/2024 [facility] DATE CREATED AUTHOR AUTHOR'S ORGANIZ ATION 04/11/2024 [facility] DATE CREATED AUTHOR AUTHOR'S ORGANIZ ATION 04/27/2024 [facility] DATE CREATED AUTHOR AUTHOR'S ORGANIZ ATION 05/07/2024 [facility] DATE CREATED AUTHOR AUTHOR'S ORGANIZ ATION 05/26/2024 [facility] DATE CREATED AUTHOR AUTHOR'S ORGANIZ ATION 05/27/2024 [facility] DATE CREATED AUTHOR AUTHOR'S ORGANIZ ATION 05/28/2024 [facility] DATE CREATED AUTHOR AUTHOR'S ORGANIZ ATION 06/01/2024 [facility] DATE CREATED AUTHOR AUTHOR'S ORGANIZ ATION 07/11/2024 [facility] DATE CREATED AUTHOR AUTHOR'S ORGANIZ ATION 07/13/2024 [facility] DATE CREATED AUTHOR AUTHOR'S ORGANIZ ATION 07/17/2024 [facility] DATE CREATED AUTHOR AUTHOR'S ORGANIZ ATION 08/20/2024 [facility] DATE CREATED AUTHOR AUTHOR'S ORGANIZ ATION 09/21/2024 [facility] DATE CREATED AUTHOR AUTHOR'S ORGANIZ ATION 09/24/2024 [facility] DATE CREATED AUTHOR AUTHOR'S ORGANIZ ATION 10/03/2024 [facility] DATE CREATED AUTHOR AUTHOR'S ORGANIZ ATION 11/13/2024 [facility] DATE CREATED AUTHOR AUTHOR'S ORGANIZ ATION 11/17/2024 [facility] DATE CREATED AUTHOR AUTHOR'S ORGANIZ ATION 11/22/2024 [facility] DATE CREATED AUTHOR AUTHOR'S ORGANIZ ATION 12/12/2024 [facility] DATE CREATED AUTHOR AUTHOR'S ORGANIZ ATION 12/20/2024 [facility] DATE CREATED AUTHOR AUTHOR'S ORGANIZ ATION 01/14/2025 [facility] DATE CREATED AUTHOR AUTHOR'S ORGANIZ ATION 01/25/2025 [facility] FOR RECORDS PERTAINING TO PATIENTS WHO [...] BE BASED ON THE PRIMARY CLINICAL RECORDS. [facility] provides no warranty or guarantee of the accuracy or completeness of information in this document.
[2025-02-28] MEDS: ENOXAPARIN SODIUM 40 MG/0.4 ML SYRINGE SUBQ (09:38)
[2025-02-28] MEDS: POLYETHYLENE GLYCOL 3350 17 GM POWDER PACKET PO (09:38)
[2025-02-28] MEDS: DOCUSATE SODIUM 100 MG CAPSULE PO ×2 (09:38→22:25)
[2025-02-28] MEDS: SPIRONOLACTONE 25 MG TABLET 50 MG PO (09:38)
[2025-02-28] MEDS: VANCOMYCIN HCL 1,250 MG in 0.9 % SODIUM CHLORIDE 250 ML 166.667 MG IV (09:38)
--- NOTE | 2025-02-28 10:00 | CM.NOTE ---
Rounds made with Dr. Barakat, discussed plan of care with pt. Pt c/o pain to R lower extremity, will order venous Doppler. Pt denies drinking at this time. No discharge today, will change pt to inpatient status. Discussed with RN to start CIWA scale.
[2025-02-28 10:16] LABS: INR 1.36
[2025-02-28 10:18] LABS: Amphetamine Screen Urine NEGATIVE (NEGATIVE); Barbiturates Screen Urine NEGATIVE (NEGATIVE); Benzodiazepines Screen Urine NEGATIVE (NEGATIVE); Cannabinoid Screen Urine POSITIVE (NEGATIVE); Cocaine Screen Urine NEGATIVE (NEGATIVE); Methadone Screen Urine NEGATIVE (NEGATIVE); Methamphetamines Screen Urine NEGATIVE (NEGATIVE); Opiate Screen Urine NEGATIVE (NEGATIVE); Oxycodone Screen Urine NEGATIVE (NEGATIVE); Phencyclidine Screen Urine NEGATIVE (NEGATIVE); Tricyclic Antidepressant Urine NEGATIVE (NEGATIVE)
[2025-02-28 10:24] LABS: Buprenorphine Screen Urine NEGATIVE (NEGATIVE)
--- NOTE | 2025-02-28 11:23 | P.IMHP_ITS ---
Internal Medicine - H&P: HPI History of Present Illness Chief complaint: CELLULITIS, RIGHT LEG Narrative: Please be aware I am seeing this patient as a new patient today he was admitted by the overnight team last night. This differs from I seen today. 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 Hx obtained from the pt at bedside, pt's chart, and ED documentation. He did have a similar presentation back in April 2024. He states that yesterday he noticed that his leg is swollen and painful as well as warm. It was very tender to touch on my exam as well. He complained of fever and chill as well as nausea but no vomiting and decided to come to the for further workup and management. Here in the hospital, his work included leukocyte count 5.9, hemoglobin of 11.7, platelet 50 which is similar to his previous levels, he had an INR of 1.52, his sodium, potassium as well as renal function were all normal. He had a total bilirubin of 3 with direct of 1.7 which is very to his previous levels. His ammonia was not checked on the admission. He tells me that he works as a [employer], he does not drink alcohol for the last 3 years as he mentions to me, he does not use drugs and he does not smoke cigarettes. He had a fever with a Tmax of 101 at 1 AM. Review of Systems ROS Status of ROS 10 or more systems reviewed and unremark able except as noted in history and below [facility] Medical History Hyponatremia ?E87.1 - Hypo-osmolality and hyponatremia (ICD-10) Cellulitis of right leg ?L03.115 - Cellulitis of right lower limb (ICD-10) Liver problem ?K76.9 - Liver disease, unspecified (ICD-10) Peripheral vascular disease, unspecified ?I73.9 - Peripheral vascular disease, unspecified (ICD-10) Hyperammonemia ?E72.20 - Disorder of urea cycle metabolism, unspecified (ICD-10) Urinary tract infection ?N39.0 - Urinary tract infection, site not specified (ICD-10) Cellulitis of right leg ?L03.115 - Cellulitis of right lower limb (ICD-10) Hypertension ?I10 - Essential (primary) hypertension (ICD-10) Esophageal varices determined by endoscopy ?I85.00 - Esophageal varices without bleeding (ICD-10) Cellulitis of left leg ?L03.116 - Cellulitis of left lower limb (ICD-10) Fracture, jaw ?S02.609A - Fracture of mandible, unspecified, initial encounter for closed fracture (ICD-10) Immunosuppressed status ?D84.9 - Immunodeficiency, unspecified (ICD-10) Hyperbilirubinemia ?E80.6 - Other disorders of bilirubin metabolism (ICD-10) 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 Smoking status: Former smoker Do you use any of these nicotine containing products: smokeless tobacco Non-prescribed substance use: cannabis (any form) Non-prescribed substance use details: abhishek Previous occupational history: [employer] Highest level of school completed/degree received: high school graduate Are you now , , , , never or living with a partner: never In a typical week, how many times do you talk on the telephone with family, friends, or neighbors: 3 or more times per week How often do you get together with friends or relatives: twice per week How often do you attend congregational or faith services: never Do you belong to any clubs or organizations such as congregational groups unions, fraternal or athletic groups, or school groups: no Total score: 1 Score interpretation: A score of less than or equal to 1 indicates the most socially isolated. Little interest or pleasure in doing things: not at all Feeling down, depressed, or hopeless: not at all Feel stressed/tense/nervous/anxious/difficulty sleeping: to some extent Life stressor details: Pain in legs Do you think of yourself as: straight/heterosexual Gender Identity: male Meds Home Medications and Allergies Home Medications ?Medication ?Instructions ?Recorded ?Confirmed ?Type spironolactone 50 mg tablet 50 mg PO DAILY 08/12/23 History ondansetron 4 mg disintegrating 4 mg PO TID 04/01/24 0 02/28/25 History tablet Allergies Allergy/AdvReac Type Severity Reaction Status Date / Time amoxicillin Allergy Severe Unknown Verified 02/27/25 23:41 Penicillins Allergy Severe Unknown Verified 02/27/25 23:41 perflutren (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 Common normals: normocephalic and head/scalp atraumatic Eye Common normals: PERRL and EOMs intact bilaterally, pale conjunctive and scleral icterus Respiratory Common normals: normal respiratory effort, no retractions, no use of accessory muscles and clear to auscultation bilaterally Cardio Common normals: regular rate, regular rhythm, S1 normal heart sound and S2 normal heart sound GI Common normals: Normal to inspection, nondistended, normoactive bowel sounds present, soft to palpation and non-tender, no SI Extremity Right lower leg as well as right foot swelling and tenderness to palpation with erythema with indistinct demarcation of the erythema. Tender to touch. No crepitus on exam. No sites of entry. Constitutional Vital Signs, click to edit/add: Last Vital Signs Temp 98.3 F 02/28/25 07:36 Pulse 72 02/28/25 07:36 Resp 16 02/28/25 07:36 BP 119/60 02/28/25 07:36 Pulse Ox 95 02/28/25 07:36 O2 Del Method Room Air 02/28/25 07:36 Internal Medicine - H&P: Reslt Labs Labs: Short CBC 02/27/25 02/28/25 Range/Units 23:45 04:55 WBC 5.0 5.9 (4.0-11.0) 10^3/uL Hgb 13.5 L 11.7 L (14.0-18.0) g/dL Hct 37.9 L 33.0 L (42.0-54.0) % Plt Count 64 L 50 L (150-450) 10^3/uL BMP 02/27/25 02/28/25 23:45 04:55 Sodium 140 138 Potassium 4.0 4.0 Chloride 104 106 Carbon Dioxide 27.9 26.1 BUN 13.0 17.0 Creatinine 0.59 L 0.75 Glucose 75 126 H Calcium 9.1 8.8 Liver Function 02/27/25 02/28/25 Range/Units 23:45 04:55 Total Bilirubin 3.2 H 3.0 H (0.2-1.0) mg/dL AST 48 H 39 H (15-37) U/L ALT 38 32 (16-63) U/L Alkaline Phosphatase 175 H 119 H (46-116) U/L Albumin 3.2 L 2.4 L (3.4-5.0) g/dL Assessment and Plan Assessment and Plan (1) Cellulitis: (2) Cellulitis of right leg: (3) Peripheral vascular disease, unspecified: (4) Esophageal varices determined by endoscopy: Plan Right lower extremity cellulitis, rule out deep History of alcohol use, will put the patient on [facility] protocol just in case he had an drink recently given that he denied that to me - Patient already admitted to [facility] floor - Will continue with IV vancomycin, will order acute EKG if the QTc is normal I will order IV Levaquin to cover Pseudomonas for now - Blood culture pending -[facility] protocol - Folic acid and thiamine - Right lower extremity venous Doppler to rule out DVT - Avoiding Tylenol for the pain control, I start the patient on morphine 1 mg IV every 6 hours as needed ELIGIO nurse to follow him closely in terms of his mental status - Dietitian consult - Urine drug screen was ordered again - Discussed the plan with the patient in details. Answered all his questions
--- NOTE | 2025-02-28 11:27 | XR_ITS ---
[facility] [place] [address] Patient Name: WILL ANDERSON MRN: [id number] date: 1985 Sex: M Assigned Patient Location: [place] Current Patient Location: [place] Accession/Order Number: [id number] Exam Date: 02/28/2025 12:20 Report Date: 02/28/2025 12:36 At the request of: MOUSTAPHA SIMONS MD Procedure: XR foot RT 2V PORTABLE RIGHT FOOT - 2 views CLINICAL DATA: Right foot infection. COMPARISON: None AP and lateral views were obtained. There is no acute fracture, dislocation or bony destruction. No degenerative changes are seen. There is dorsal soft tissue swelling. There is no obvious subcutaneous air or radiopaque foreign bodies. XR/XR foot RT 2V IMPRESSION: NO ACUTE BONY FINDINGS. Impression dictated by: Tanika Flores M.D. 02/28/2025 12:36 PM Dictation Location: [place] [address] Electronically authenticated by: [id number] Y Date: 02/28/2025 12:36
--- NOTE | 2025-02-28 11:32 | ECG_ITS ---
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 Measurements Intervals Happy Rate: 77 P: 55 ME: 168 QRS: 76 QRSD: 90 T: 54 QT: 402 QTc: 456 Interpretive Statements SINUS RHYTHM ST ELEV, PROBABLE NORMAL EARLY REPOL PATTERN Normal ECG Compared to ECG 10/08/2023 12:07:56 No significant changes Electronically Signed On 02-28-2025 21:55:48 EDT by COLE WARNER M.D.
[2025-02-28 11:41] LABS: Magnesium 1.5 mg/dL (1.8-2.4)
[2025-02-28] MEDS: PANTOPRAZOLE SODIUM 40 MG VIAL IV (11:47)
[2025-02-28] MEDS: MORPHINE SULFATE 2 MG/ML SYRINGE 1 MG IV ×2 (11:47→17:37)
[2025-02-28] MEDS: FOLIC ACID 1 MG TABLET PO (11:47)
[2025-02-28 13:04] LABS: A. calcoaceticus-baumannii Cpx NOT DETECTED (NOT DETECTE); Bacteroides fragilis NOT DETECTED (NOT DETECTE); Enterobacter cloacae complex NOT DETECTED (NOT DETECTE); Enterococcus faecalis NOT DETECTED (NOT DETECTE); Enterococcus faecium NOT DETECTED (NOT DETECTE); Haemophilus influenzae NOT DETECTED (NOT DETECTE); Klebsiella aerogenes NOT DETECTED (NOT DETECTE); Klebsiella pneumoniae group NOT DETECTED (NOT DETECTE); Listeria monocytogenes NOT DETECTED (NOT DETECTE); Proteus spp. NOT DETECTED (NOT DETECTE); Salmonella spp. NOT DETECTED (NOT DETECTE); Serratia marcescens NOT DETECTED (NOT DETECTE); Staphylococcus epidermidis NOT DETECTED (NOT DETECTE); Staphylococcus lugdunensis NOT DETECTED (NOT DETECTE); Staphylococcus spp. NOT DETECTED (NOT DETECTE); Streptococcus agalactiae NOT DETECTED (NOT DETECTE); Streptococcus pneumoniae NOT DETECTED (NOT DETECTE); Streptococcus pyogenes NOT DETECTED (NOT DETECTE); Streptococcus spp. NOT DETECTED (NOT DETECTE)
[2025-02-28 13:05] LABS: Candida albicans NOT DETECTED (NOT DETECTE); Candida auris NOT DETECTED (NOT DETECTE); Candida glabrata NOT DETECTED (NOT DETECTE); Candida krusei NOT DETECTED (NOT DETECTE); Candida parapsilosis NOT DETECTED (NOT DETECTE); Candida tropicalis NOT DETECTED (NOT DETECTE); Cryptococcus neoformans/gattii NOT DETECTED (NOT DETECTE); Neisseria meningitidis NOT DETECTED (NOT DETECTE); Pseudomonas aeruginosa NOT DETECTED (NOT DETECTE); Stenotrophomonas maltophilia NOT DETECTED (NOT DETECTE)
[2025-02-28 14:18] LABS: CTX-M NOT DETECTED (NOT DETECTE); IMP NOT DETECTED (NOT DETECTE); KPC NOT DETECTED (NOT DETECTE); NDM NOT DETECTED (NOT DETECTE); OXA-48-like NOT DETECTED (NOT DETECTE); mcr-1 NOT DETECTED (NOT DETECTE)
[2025-02-28 14:19] LABS: Source Blood; VIM NOT DETECTED (NOT DETECTE)
[2025-02-28 14:21] LABS: Enterobacterales DETECTED (NOT DETECTE)
[2025-02-28] MEDS: 0.9 % SODIUM CHLORIDE 250 ML 10 ML IV (15:23)
[2025-02-28] MEDS: ERTAPENEM SODIUM 1 GM in 0.9 % SODIUM CHLORIDE 50 ML IV (15:23)
[2025-02-28] MEDS: VANCOMYCIN HCL 1,250 MG in 0.9 % SODIUM CHLORIDE 250 ML 166 MG IV (17:36)
[2025-02-28] MEDS: OXYCODONE HCL/ACETAMINOPHEN 5MG/325MG 1 TAB PO (23:12)
[2025-03-01] VITALS (19 sets, daily range): BP systolic 115–124; BP diastolic 65–78; PULSE 68–84; TEMP 36.7–38.3; O2SAT 90–98
[2025-03-01] MEDS: VANCOMYCIN HCL 1,250 MG in 0.9 % SODIUM CHLORIDE 250 ML 166.667 MG IV ×2 (01:50→09:04)
[2025-03-01] MEDS: MORPHINE SULFATE 2 MG/ML SYRINGE 1 MG IV ×2 (02:59→21:59)
[2025-03-01 06:06] LABS: Basophils Percent Auto 0.2 % (0.2-2.0); Eosinophils Absolute Auto 0.2 10^3/uL (0.0-0.7); Eosinophils Percent Auto 1.9 % (0.9-7.0); Hematocrit 32.6 % (42.0-54.0); Hemoglobin 11.2 g/dL (14.0-18.0); Immature Granulocytes Abs Auto 0.06 10^3/uL (0.00-0.03); Immature Granulocytes Pct Auto 0.7 % (0.0-0.5); Lymphocytes Absolute Auto 1.1 10^3/uL (1.2-3.8); Lymphocytes Percent Auto 12.7 % (20.5-60.0); Mean Corpuscular HGB Conc 34.4 g/dL (29.9-35.2); Mean Corpuscular Hemoglobin 36.2 pg (25.9-34.0); Mean Corpuscular Volume 105.5 fL (80.0-94.0); Mean Platelet Volume 11.8 fL (9.5-13.5); Monocytes Absolute Auto 0.7 10^3/uL (0.3-0.8); Neutrophils Absolute Auto 6.9 10^3/uL (1.4-6.5); Neutrophils Percent Auto 76.5 % (43.0-75.0); Platelet Count 43 10^3/uL (150-450); Red Blood Count 3.09 10^6/uL (4.70-6.10); Red Cell Distribution Width 14.6 % (11.0-15.0)
[2025-03-01] MEDS: OXYCODONE HCL/ACETAMINOPHEN 5MG/325MG 1 TAB PO (06:27)
[2025-03-01 06:33] LABS: Alanine Aminotransferase 29 U/L (16-63); Albumin Globulin Ratio 0.8; Albumin Level 2.5 g/dL (3.4-5.0); Alkaline Phosphatase 103 U/L (46-116); Anion Gap 10.3; Aspartate Amino Transferase 39 U/L (15-37); Bilirubin Total 3.5 mg/dL (0.2-1.0); Calcium 8.1 mg/dL (8.5-10.1); Carbon Dioxide 25.6 mmol/L (21.0-32.0); Chloride 108 mmol/L (98-107); Estimated GFR (African America >60 (>=60 mL/min/1.73m^2); Estimated GFR (Non-African Ame >60 (>=60 mL/min/1.73m^2); Globulin 3.1 g/dL; Glucose 111 mg/dL (74-106); Magnesium 1.6 mg/dL (1.8-2.4); Potassium 3.9 mmol/L (3.5-5.1); Sodium 140 mmol/L (136-145); Total Protein 5.6 g/dL (6.4-8.2)
[2025-03-01] MEDS: DOCUSATE SODIUM 100 MG CAPSULE PO ×2 (09:05→21:59)
[2025-03-01] MEDS: SPIRONOLACTONE 25 MG TABLET 50 MG PO (09:05)
[2025-03-01] MEDS: FOLIC ACID 1 MG TABLET PO (09:05)
[2025-03-01] MEDS: POLYETHYLENE GLYCOL 3350 17 GM POWDER PACKET PO (09:05)
[2025-03-01] MEDS: THIAMINE MONONITRATE (VIT B1) 100 MG TABLET PO (09:05)
[2025-03-01] MEDS: ENOXAPARIN SODIUM 40 MG/0.4 ML SYRINGE SUBQ (09:05)
[2025-03-01] MEDS: PANTOPRAZOLE SODIUM 40 MG VIAL IV (09:05)
--- NOTE | 2025-03-01 09:47 | CA_ITS ---
Patient Name: WILL ANDERSON MR#: [id number] : 1985 Exam Date: 03/01/2025 Ordering Doctor: MOUSTAPHA SIMONS ECHOCARDIOGRAM REPORT PROCEDURE: CA ECHO LIMITED INDICATIONS: heart valve assessment, cellulitis rt leg, cirrhosis, hypertension COMPARISON: None. DESCRIPTION: Limited ECHOCARDIOGRAM Real-time transthoracic echocardiography with 2D and M-mode performed. QUALITY: Technical quality was good. Limited echocardiogram per physician order. LEFT VENTRICLE: Normal chamber size. Normal left ventricular wall thickness. Estimated left ventricular ejection fraction is 60%. LV EF: Normal left ventricular ejection fraction, (>55%). DIASTOLIC: ATRIAL SEPTUM: LEFT ATRIUM: Normal chamber size. RIGHT ATRIUM: Normal chamber size. RIGHT VENTRICLE: Normal chamber size. Normal systolic function. TRICUSPID VALVE: Normal mobility and thickness. MITRAL VALVE: Normal mobility and thickness. There is no mitral annular calcification. AORTIC VALVE: Normal trileaflet appearance. No visible sclerosis. Normal leaflet mobility. AORTIC ROOT: Normal diameter and appearance, measuring 3.0 cm. PULMONIC VALVE: Normal thickness and mobility. PERICARDIUM: No evidence of pericardial effusion. IVC: Not well visualized. PLEURA: CONCLUSION: 1. Normal ventricular systolic function. LVEF is estimated at 60%. 2. No pericardial effusion. 3. Limited study performed with no Doppler interrogation as requested. Adult Echocardiography Procedure Report Left Ventricle LVEDD (3.7 - 5.6 cm): 4.46 cm LVESD (2.2 - 4.0 cm): 3.31 cm LVIVS thickness (0.6 - 1.2 cm): 1.01 cm LVPW thickness (0.5 - 1.0 cm): 0.97 cm LVOT Diameter 2.12 cm Left Ventricular Ejection Fraction: 60 % Left Atrium LA Volume Index (2D A2C): 29.82 ml/m2 Left Atrium Systolic Dimension: 3.76 cm Mitral Valve Right Ventricle Aorta AO Root Diam: 2.97 cm Aortic Valve Tricuspid Valve Pulmonic Valve Right Atrium Right Atrium Systolic Pressure: 44.19 ml, 44.19 ml Dictated by: Victoriano Peck M.D. on 03/01/2025 at 19:13 Approved by: Victoriano Peck M.D. on 03/01/2025 at 19:15
[2025-03-01] MEDS: MAGNESIUM SULFATE IN WATER 2 GM/50 ML PREMIX IV (10:38)
--- NOTE | 2025-03-01 12:02 | CM.NOTE ---
Rounds made with Dr. Barakat. Dr. Barakat reviews radiology and lab findings with Mr. Ralph. All questions answered by Dr. Barakat.
[2025-03-01] MEDS: DOXYCYCLINE HYCLATE 100 MG in 0.9 % SODIUM CHLORIDE 100 ML IV (12:06)
--- NOTE | 2025-03-01 12:30 | PM.IMPN1 ---
Progress Note: A&P Assessment and Plan (1) Cellulitis: (2) Cellulitis of right leg: (3) Peripheral vascular disease, unspecified: (4) Esophageal varices determined by endoscopy: Plan Right lower extremity cellulitis, rule out deep History of alcohol use, will put the patient on CIDE protocol just in case he had an drink recently given that he denied that to me E. coli bacteremia - Patient already admitted to [facility] floor - Will continue with IV vancomycin, will order acute EKG if the QTc is normal I will order IV Levaquin to cover Pseudomonas for now - Blood culture pending -[facility] protocol - Folic acid and thiamine - Right lower extremity venous Doppler to rule out DVT - Avoiding Tylenol for the pain control, I start the patient on morphine 1 mg IV every 6 hours as needed ELIGIO nurse to follow him closely in terms of his mental status - Dietitian consult - Urine drug screen was ordered again - Discussed the plan with the patient in details. Answered all his questions 03/01/2025 there is minimal improvement of his symptoms. He was started on oxycodone as needed for his pain. He was started yesterday on 8 of [place] M which I think is a good choice given his E. coli. And his allergy to penicillins. I am waiting for the further BHAVIN and susceptible to come back. I did not repeat his blood cultures as the patient is probably treated now. I will repeat the cultures the patient developed leukocytosis or recurrent fever. I ordered ultrasound Doppler for signs of PAD. I will continue with IV vancomycin for MRSA coverage as well as IV Rocephin and for E. coli bacteremia coverage. Also added doxycycline for 48 hours and will stop after that. I discussed the plan with the patient details. Answered all her questions and addressed his concerns. Both antibiotics will be dosed by pharmacy. There is a slight drop in his platelet to 43,000 but patient is not overtly bleeding. He is on Nexium as needed which I will give another day and recheck his platelets. There is I did not stop enoxaparin yet given his thrombocytopenia is that he is at high risk of DVT given his immobility of his right lower extremity, and his states appears to be around his baseline from before values. Will continue to monitor closely. I also repeated his magnesium of 1.6 Internal Medicine - PN: Subj Subjective Interval history: Patient seen examined bedside. Still complains of right foot and leg pain, had to use oxycodone last night. He. To me that he has not drank a drop of alcohol since 3 years and has not used any drugs. Had a fever last 7 PM. His labs were reviewed today. And electrolytes were repleted. He is hemodynamic stable Exam Narrative Exam Narrative: Narrative Exam Narrative: Constitutional: No apparent distress, average body habitus, oriented x3, no limitations, healthy appearing, alert and well nourished [facility] Common normals: normocephalic and head/scalp atraumatic Eye Common normals: PERRL and EOMs intact bilaterally, pale conjunctive and scleral icterus Respiratory Common normals: normal respiratory effort, no retractions, no use of accessory muscles and clear to auscultation bilaterally Cardio Common normals: regular rate, regular rhythm, S1 normal heart sound and S2 normal heart sound GI Common normals: Normal to inspection, nondistended, normoactive bowel sounds present, soft to palpation and non-tender, no SI Extremity Right lower leg as well as right foot swelling and tenderness to palpation with erythema with indistinct demarcation of the erythema. Tender to touch. No crepitus on exam. No sites of entry. Good bilateral lower extremity pulses. Constitutional Vital Signs, click to edit/add: Last Vital Signs Temp 98.8 F 03/01/25 09:13 Pulse 80 03/01/25 09:13 Resp 16 03/01/25 09:13 BP 121/78 03/01/25 09:13 Pulse Ox 90 L 03/01/25 11:43 O2 Del Method Room Air 03/01/25 11:43 O2 Flow Rate 1 03/01/25 05:09 Internal Medicine - PN: Obj Da Labs Labs: Laboratory Results - last 24 hr 02/27/25 03/01/25 23:58 05:11 WBC 9.0 RBC 3.09 L Hgb 11.2 L Hct 32.6 L MCV 105.5 H MCH 36.2 H MCHC 34.4 RDW 14.6 Plt Count 43 L MPV 11.8 Neut % (Auto) 76.5 H Lymph % (Auto) 12.7 L Sutton % (Auto) 8.0 Eos % (Auto) 1.9 Baso % (Auto) 0.2 Neut # (Auto) 6.9 H Lymph # (Auto) 1.1 L Sutton # (Auto) 0.7 Eos # (Auto) 0.2 Baso # (Auto) 0.0 Abs Immat Gran (auto) 0.06 H Imm/Tot Granulo (auto) 0.7 H Sodium 140 Potassium 3.9 Chloride 108 H Carbon Dioxide 25.6 Anion Gap 10.3 BUN 12.0 Creatinine 0.63 L Est GFR ( Amer) >60 Est GFR (Non-Af Amer) >60 BUN/Creatinine Ratio 19.0 Glucose 111 H Calcium 8.1 L Magnesium 1.6 L Total Bilirubin 3.5 H AST 39 H ALT 29 Alkaline Phosphatase 103 Total Protein 5.6 L Albumin 2.5 L Globulin 3.1 Albumin/Globulin Ratio 0.8 Specimen Source Blood A.calcoaceticus-baumannii cmplx PCR Not detected Bacteroides fragilis Not detected Aleta albicans (PCR) Not detected Aleta auris (PCR) Not detected C. glabrata (PCR) Not detected C. krusei (PCR) Not detected C. parapsilosis (PCR) Not detected C. tropicalis (PCR) Not detected C. neoform/gattii (PCR) Not detected Enterobacterales (PCR) Detected A* E. cloacae complex PCR Not detected Enterococc faecalis PCR Not detected Enterococc faecium PCR Not detected E. coli (PCR) Detected A* H. influenzae (PCR) Not detected Klebsiella aerogenes (PCR) Not detected Klebsiella oxytoca PCR Not detected K. pneumoniae group (PCR) Not detected List. monocytogenes PCR Not detected N. meningitidis (PCR) Not detected Proteus spp. (copies/mL) Not detected Salmonella spp. (PCR) Not detected Serratia marcescens PCR Not detected Staphylococcus sp PCR Not detected Staph aureus (PCR) Not detected mecA/C & MREJ Resist Gene Not applicable mecA/C-Methicil Resis Gene Not applicable mcr-1 Colistin Res Gene PCR Not detected Staph epidermidis (PCR) Not detected Staph lugdunensis (TEM-PCR) Not detected S. maltophilia (PCR) Not detected Streptococcus sp PCR Not detected Strep agalactiae (PCR) Not detected Strep pneumoniae (PCR) Not detected S. pyogenes (PCR) Not detected P. aeruginosa (PCR) Not detected Lazaro/B-Vanco Res Genes Not applicable blaIMP Car res Gene PCR Not detected KPC (blaKPC) Detect PCR Not detected NDM (blaNDM) Detect PCR Not detected OXA-48 Carbapenem Resis Gene (PCR) Not detected blaVIM Car Res Gene PCR Not detected CTX-M ESBL (PCR) Not detected
[2025-03-01] MEDS: ERTAPENEM SODIUM 1 GM in 0.9 % SODIUM CHLORIDE 50 ML IV (15:05)
[2025-03-01] MEDS: OXYCODONE HCL 5 MG TABLET PO (15:05)
[2025-03-01 16:53] LABS: Vancomycin Trough 11.7 ug/mL (5.0-20.0)
[2025-03-01] MEDS: VANCOMYCIN HCL 1,250 MG in 0.9 % SODIUM CHLORIDE 250 ML 125 MG IV (16:58)
--- NOTE | 2025-03-01 18:08 | DIETREC ---
Recommend 237 mL Ensure High PRO BID, 30 mL PRO-stat BID, and 1 packet Mc BID to aid wound healing.
[2025-03-01] MEDS: IBUPROFEN 600 MG TABLET PO (19:53)
[2025-03-02] VITALS (15 sets, daily range): BP systolic 106–146; BP diastolic 65–83; PULSE 62–94; TEMP 36.4–37.8; O2SAT 92–98
[2025-03-02] MEDS: DOXYCYCLINE HYCLATE 100 MG in 0.9 % SODIUM CHLORIDE 100 ML IV ×3 (00:07→23:19)
[2025-03-02] MEDS: 0.9 % SODIUM CHLORIDE 250 ML 10 ML IV (00:08)
[2025-03-02] MEDS: VANCOMYCIN HCL 1,250 MG in 0.9 % SODIUM CHLORIDE 250 ML 166.667 MG IV (03:32)
[2025-03-02] MEDS: OXYCODONE HCL 5 MG TABLET PO ×3 (03:32→20:04)
[2025-03-02 06:02] LABS: Basophils Percent Auto 0.3 % (0.2-2.0); Eosinophils Absolute Auto 0.2 10^3/uL (0.0-0.7); Eosinophils Percent Auto 2.3 % (0.9-7.0); Hematocrit 32.2 % (42.0-54.0); Hemoglobin 11.2 g/dL (14.0-18.0); Immature Granulocytes Pct Auto 1.3 % (0.0-0.5); Lymphocytes Absolute Auto 0.9 10^3/uL (1.2-3.8); Lymphocytes Percent Auto 12.1 % (20.5-60.0); Mean Corpuscular HGB Conc 34.8 g/dL (29.9-35.2); Mean Corpuscular Hemoglobin 36.5 pg (25.9-34.0); Mean Corpuscular Volume 104.9 fL (80.0-94.0); Mean Platelet Volume 11.5 fL (9.5-13.5); Monocytes Absolute Auto 0.7 10^3/uL (0.3-0.8); Monocytes Percent Auto 9.3 % (1.7-12.0); Neutrophils Absolute Auto 5.5 10^3/uL (1.4-6.5); Neutrophils Percent Auto 74.7 % (43.0-75.0); Platelet Count 42 10^3/uL (150-450); Red Blood Count 3.07 10^6/uL (4.70-6.10); Red Cell Distribution Width 14.5 % (11.0-15.0); White Blood Count 7.4 10^3/uL (4.0-11.0)
--- NOTE | 2025-03-02 06:19 | P.PN_ITS ---
Progress Note: Subjective Subjective Interval history: Patient states overall the leg is feeling better Exam Constitutional Vital Signs, click to edit/add: Last Vital Signs Temp 97.7 F 03/02/25 03:48 Pulse 62 03/02/25 03:48 Resp 16 03/02/25 03:48 BP 106/68 03/02/25 03:48 Pulse Ox 95 03/02/25 05:54 O2 Del Method Nasal Cannula 03/02/25 03:48 O2 Flow Rate 2 03/02/25 03:48 Documenting provider has reviewed patient's vital signs: yes Common normals: no apparent distress Respiratory Common normals: normal respiratory effort Cardio Common normals: regular rate GI Common normals: Normal to inspection, nondistended, normoactive bowel sounds present Extremity Common normals: normal to inspection and normal capillary refill; clubbing, cyanosis or edema (Erythema and swelling of right lower extremity with petechiae) Progress Note: Objective Labs Labs: Short CBC 03/02/25 Range/Units 05:38 WBC 7.4 (4.0-11.0) 10^3/uL Hgb 11.2 L (14.0-18.0) g/dL Hct 32.2 L (42.0-54.0) % Plt Count 42 L (150-450) 10^3/uL BMP 03/01/25 05:11 Sodium 140 Potassium 3.9 Chloride 108 H Carbon Dioxide 25.6 BUN 12.0 Creatinine 0.63 L Glucose 111 H Calcium 8.1 L Liver Function 03/01/25 Range/Units 05:11 Total Bilirubin 3.5 H (0.2-1.0) mg/dL AST 39 H (15-37) U/L ALT 29 (16-63) U/L Alkaline Phosphatase 103 (46-116) U/L Albumin 2.5 L (3.4-5.0) g/dL Progress Note: A&P Assessment and Plan (1) Cellulitis: (2) Cellulitis of right leg: (3) Peripheral vascular disease, unspecified: (4) Esophageal varices determined by endoscopy: Plan Cellulitis of right lower extremity resulting in sepsis due to E. coli, blood culture positive-sensitivities pending, maintain patient on current medications but can stop the vancomycin: Peripheral vascular disease, unspecified: No claudication symptoms Esophageal varices determined by endoscopy:-Continue to monitor blood counts - stable Hyperglycemia-improved to normal Hypomagnesemia-supplement Hyperbilirubinemia-secondary to liver cirrhosis-elevated today, continue to monitor Anemia of chronic ramgmmz-swfcm-bbhdgn Thrombocytopenia-down slightly, resulting in petechiae over area of cellulitis Patient has recurrent cellulitis, this episode secondary to E. coli with positive's blood culture show resulting in sepsis, medically necessary treatment will span 2 midnights. Maintain IV antibiotics, culture final is pending gram- negative sepsis will result in medically necessary treatment spanning the 2 midnights, inpatient status
[2025-03-02 06:24] LABS: Alanine Aminotransferase 29 U/L (16-63); Albumin Globulin Ratio 0.8; Albumin Level 2.4 g/dL (3.4-5.0); Alkaline Phosphatase 89 U/L (46-116); Anion Gap 10.3; Aspartate Amino Transferase 43 U/L (15-37); BUN Creatinine Ratio 17.3; Bilirubin Total 4.1 mg/dL (0.2-1.0); Carbon Dioxide 25.7 mmol/L (21.0-32.0); Chloride 108 mmol/L (98-107); Estimated GFR (African America >60 (>=60 mL/min/1.73m^2); Estimated GFR (Non-African Ame >60 (>=60 mL/min/1.73m^2); Globulin 3.2 g/dL; Glucose 90 mg/dL (74-106); Magnesium 1.7 mg/dL (1.8-2.4); Sodium 140 mmol/L (136-145); Total Protein 5.6 g/dL (6.4-8.2)
--- NOTE | 2025-03-02 08:33 | CM.NOTE ---
Rounds made with Dr. Warren, no discharge today. R lower leg continues with pain and redness. Discussed with pt plan of care and culture results.
[2025-03-02] MEDS: PANTOPRAZOLE SODIUM 40 MG VIAL IV (08:47)
[2025-03-02] MEDS: ENOXAPARIN SODIUM 40 MG/0.4 ML SYRINGE SUBQ (08:47)
[2025-03-02] MEDS: SPIRONOLACTONE 25 MG TABLET 50 MG PO (08:47)
[2025-03-02] MEDS: THIAMINE MONONITRATE (VIT B1) 100 MG TABLET PO (08:47)
[2025-03-02] MEDS: VANCOMYCIN HCL 1,250 MG in 0.9 % SODIUM CHLORIDE 250 ML 166 MG IV (08:47)
[2025-03-02] MEDS: POLYETHYLENE GLYCOL 3350 17 GM POWDER PACKET PO (08:48)
[2025-03-02] MEDS: DOCUSATE SODIUM 100 MG CAPSULE PO ×2 (08:48→20:04)
[2025-03-02] MEDS: MAGNESIUM OXIDE 400 MG TABLET PO ×2 (08:48→20:04)
[2025-03-02] MEDS: FOLIC ACID 1 MG TABLET PO (08:48)
[2025-03-02] MEDS: MORPHINE SULFATE 2 MG/ML SYRINGE 1 MG IV ×3 (08:58→23:21)
[2025-03-02] MEDS: ERTAPENEM SODIUM 1 GM in 0.9 % SODIUM CHLORIDE 50 ML IV (15:58)
[2025-03-02] MEDS: IBUPROFEN 600 MG TABLET PO (16:24)
[2025-03-03 03:52] VITALS: O2SAT 99
[2025-03-03 04:00] VITALS: BP 109/69; PULSE 72; TEMP 36.4; O2SAT 95
[2025-03-03 05:47] VITALS: O2SAT 96
--- NOTE | 2025-03-03 06:53 | P.PN_ITS ---
Progress Note: Subjective Subjective Interval history: Patient states overall the leg is feeling better Exam Constitutional Vital Signs, click to edit/add: Last Vital Signs Temp 97.6 F 03/03/25 04:00 Pulse 72 03/03/25 04:00 Resp 18 03/03/25 04:00 BP 109/69 03/03/25 04:00 Pulse Ox 96 03/03/25 05:47 O2 Del Method Nasal Cannula 03/03/25 04:00 O2 Flow Rate 1 03/03/25 04:00 Progress Note: A&P Assessment and Plan (1) Cellulitis: (2) Cellulitis of right leg: (3) Peripheral vascular disease, unspecified: (4) Esophageal varices determined by endoscopy: Plan Cellulitis of right lower extremity resulting in sepsis due to E. coli, blood culture positive-sensitivities pending, maintain patient on current medications but can stop the vancomycin: Peripheral vascular disease, unspecified: No claudication symptoms Esophageal varices determined by endoscopy:-Continue to monitor blood counts - stable Hyperglycemia-improved to normal Hypomagnesemia-supplement Hyperbilirubinemia-secondary to liver cirrhosis-elevated today, continue to hope tor Anemia of chronic msdgiyc-pmpfb-uvcrni Thrombocytopenia-down slightly, resulting in petechiae over area of cellulitis Patient has recurrent cellulitis, this episode secondary to E. coli with positive's blood culture show resulting in sepsis, medically necessary treatment will span 2 midnights. Maintain IV antibiotics, culture final is pending gram- negative sepsis will result in medically necessary treatment spanning the 2 midnights, inpatient status
[2025-03-03 07:52] LABS: Basophils Percent Auto 0.5 % (0.2-2.0); Eosinophils Absolute Auto 0.2 10^3/uL (0.0-0.7); Eosinophils Percent Auto 3.6 % (0.9-7.0); Hemoglobin 11.9 g/dL (14.0-18.0); Immature Granulocytes Abs Auto 0.06 10^3/uL (0.00-0.03); Immature Granulocytes Pct Auto 0.9 % (0.0-0.5); Lymphocytes Absolute Auto 0.8 10^3/uL (1.2-3.8); Mean Corpuscular Hemoglobin 36.4 pg (25.9-34.0); Mean Platelet Volume 11.1 fL (9.5-13.5); Monocytes Absolute Auto 0.8 10^3/uL (0.3-0.8); Monocytes Percent Auto 11.8 % (1.7-12.0); Neutrophils Absolute Auto 4.5 10^3/uL (1.4-6.5); Neutrophils Percent Auto 71.2 % (43.0-75.0); Platelet Count 58 10^3/uL (150-450); Red Blood Count 3.27 10^6/uL (4.70-6.10); Red Cell Distribution Width 14.3 % (11.0-15.0); White Blood Count 6.4 10^3/uL (4.0-11.0)
[2025-03-03 07:54] VITALS: O2SAT 95
--- NOTE | 2025-03-03 07:55 | CM.NOTE ---
Rounds made with Dr. Warren, possible discharge this afternoon with close f/u with PCP for final culture result and susceptibility.
[2025-03-03 08:00] VITALS: BP 122/77; PULSE 74; TEMP 36.5; O2SAT 95
[2025-03-03 08:03] LABS: Alanine Aminotransferase 39 U/L (16-63); Albumin Globulin Ratio 0.7; Albumin Level 2.5 g/dL (3.4-5.0); Alkaline Phosphatase 107 U/L (46-116); Anion Gap 11.1; Aspartate Amino Transferase 60 U/L (15-37); BUN Creatinine Ratio 13.8; Bilirubin Total 3.2 mg/dL (0.2-1.0); Calcium 8.1 mg/dL (8.5-10.1); Carbon Dioxide 27.5 mmol/L (21.0-32.0); Chloride 103 mmol/L (98-107); Estimated GFR (African America >60 (>=60 mL/min/1.73m^2); Estimated GFR (Non-African Ame >60 (>=60 mL/min/1.73m^2); Globulin 3.5 g/dL; Glucose 107 mg/dL (74-106); Potassium 3.6 mmol/L (3.5-5.1); Sodium 138 mmol/L (136-145)
[2025-03-03 08:11] LABS: Magnesium 1.7 mg/dL (1.8-2.4)
--- NOTE | 2025-03-03 08:26 | P.DS_ITS ---
DS: Providers Provider Date of admission: 02/28/25 09:33 Primary care physician: Non-Staff Physician, Consults: 02/28/25 01:37 Consult to Pharmacy Routine Consulting Provider: Yahaira Pastrana Reason for consultation: Clindamycin dosing/monitoring 02/28/25 09:37 Consult to Dietitian Routine Reason for consultation: malnutrition DS: Diagnosis Discharge Diagnosis (1) Cellulitis: (2) Cellulitis of right leg: (3) Peripheral vascular disease, unspecified: (4) Esophageal varices determined by endoscopy: Plan Cellulitis of right lower extremity resulting in sepsis due to E. coli, blood culture positive-sensitivities pending, maintain patient on current medications but can stop the vancomycin: Peripheral vascular disease, unspecified: No claudication symptoms Esophageal varices determined by endoscopy:-Continue to monitor blood counts - stable Liver cirrhosis-ammonia pending today Hyperglycemia-improved to normal Hypomagnesemia-supplement Hyperbilirubinemia-improved today Anemia of chronic quuqhcc-zdeap-eqxbfg Thrombocytopenia-improved today Patient has recurrent cellulitis, this episode secondary to E. coli with positive's blood culture show resulting in sepsis, medically necessary treatment will span 2 midnights. Maintain IV antibiotics, culture final is pending gram- negative sepsis will result in medically necessary treatment spanning the 2 midnights, inpatient status DS: Summary Hospital Course Hospital Course: Patient was admitted with failed outpatient treatment of cellulitis, initial screening culture came back positive for E. coli, continue with current IV antibiotics of Invanz, doxycycline for MRSA possibility, leg feels much improved today, cultures are not back yet, but with typical sensitivity pattern for E. coli with cefdinir will change patient to oral cefdinir at home, follow-up with his PCP in 3 days for close follow-up and final cultures result should be done, I am on-call for the hospital for the weekend so if cultures come back resistant to cefdinir will adjust medications over the weekend. Medications see list. Follow-up with PCP on Thursday Time Spent with Patient Time attestation: Total time spent providing and/or coordinating discharge services: Exam Constitutional Vital Signs, click to edit/add: Last Vital Signs Temp 97.6 F 03/03/25 04:00 Pulse 72 03/03/25 04:00 Resp 18 03/03/25 04:00 BP 109/69 03/03/25 04:00 Pulse Ox 95 03/03/25 07:54 O2 Del Method Nasal Cannula 03/03/25 04:00 O2 Flow Rate 1 03/03/25 04:00 Documenting provider has reviewed patient's vital signs: yes Common normals: no apparent distress Respiratory Common normals: normal respiratory effort Cardio Common normals: regular rate GI Common normals: Normal to inspection, nondistended, normoactive bowel sounds p resent Extremity Common normals: normal to inspection and normal capillary refill; clubbing, cyanosis or edema (Erythema improved,. Petechiae persisting, edema improved) DS: Data Data Completed and Pending Labs on day of discharge: Labs from last 24 hours 03/03/25 07:02 WBC 6.4 RBC 3.27 L Hgb 11.9 L Hct 34.0 L MCV 104.0 H MCH 36.4 H MCHC 35.0 RDW 14.3 Plt Count 58 L MPV 11.1 Neut % (Auto) 71.2 Lymph % (Auto) 12.0 L [place] % (Auto) 11.8 Eos % (Auto) 3.6 Baso % (Auto) 0.5 Neut # (Auto) 4.5 Lymph # (Auto) 0.8 L [place] # (Auto) 0.8 Eos # (Auto) 0.2 Baso # (Auto) 0.0 Abs Immat Gran (auto) 0.06 H Imm/Tot Granulo (auto) 0.9 H Sodium 138 Potassium 3.6 Chloride 103 Carbon Dioxide 27.5 Anion Gap 11.1 BUN 13.0 Creatinine 0.94 Est GFR ( Amer) >60 Est GFR (Non-Af Amer) >60 BUN/Creatinine Ratio 13.8 Glucose 107 H Calcium 8.1 L Magnesium 1.7 L Total Bilirubin 3.2 H AST 60 H ALT 39 Alkaline Phosphatase 107 Total Protein 6.0 L Albumin 2.5 L Globulin 3.5 Albumin/Globulin Ratio 0.7 Preliminary micro results at discharge 02/27/25 23:45 Blood Culture Result 1 - Preliminary Blood - Right Antecubital NO GROWTH AT 36-48 HOURS. FINAL TO FOLLOW. 02/27/25 23:58 Blood Culture Result 2 - Preliminary Blood - Left Forearm 02/27/25 23:58 Aerobic Susc Result 2 - Preliminary Blood - Left Forearm Gram negative monique Anaerobe Identification - Preliminary Discharge Plan Discharge Disposition: Home, Self-Care Discharge Medications: New magnesium oxide 400 mg (241.3 mg magnesium) Tablet 400 mg PO BID Qty: 60 11RF cefdinir 300 mg capsule 600 mg PO DAILY Qty: 30 0RF doxycycline monohydrate 100 mg capsule 100 mg PO BID 14 Days Qty: 28 0RF Continued spironolactone 50 mg tablet 50 mg PO DAILY ondansetron 4 mg tablet,disintegrating 4 mg PO TID Print Language: Chinese Forms: Portal Instructions Follow Up Appointments: March 07 @ 9:40am with Vic Ramos, [facility] [phone]
[2025-03-03] MEDS: FOLIC ACID 1 MG TABLET PO (08:36)
[2025-03-03] MEDS: PANTOPRAZOLE SODIUM 40 MG VIAL IV (08:36)
[2025-03-03] MEDS: ENOXAPARIN SODIUM 40 MG/0.4 ML SYRINGE SUBQ (08:36)
[2025-03-03] MEDS: DOCUSATE SODIUM 100 MG CAPSULE PO (08:36)
[2025-03-03] MEDS: POLYETHYLENE GLYCOL 3350 17 GM POWDER PACKET PO (08:36)
[2025-03-03] MEDS: THIAMINE MONONITRATE (VIT B1) 100 MG TABLET PO (08:36)
[2025-03-03] MEDS: OXYCODONE HCL 5 MG TABLET PO (08:36)
[2025-03-03] MEDS: SPIRONOLACTONE 25 MG TABLET 50 MG PO (08:36)
[2025-03-03] MEDS: MAGNESIUM OXIDE 400 MG TABLET PO (08:36)
[2025-03-03 09:31] LABS: Ammonia 30 umol/L (11-32)
[2025-03-03] MEDS: DOXYCYCLINE HYCLATE 100 MG in 0.9 % SODIUM CHLORIDE 100 ML IV (11:28)
[2025-03-03] MEDS: 0.9 % SODIUM CHLORIDE 250 ML 10 ML IV (11:29)
[2025-03-03 11:34] VITALS: O2SAT 97
[2025-03-03] MEDS: ERTAPENEM SODIUM 1 GM in 0.9 % SODIUM CHLORIDE 50 ML IV (13:14)
--- NOTE | 2025-03-06 14:29 | CM.DCFOLLOWU ---
Person spoke with: Edgardo How are you feeling? Much better How is your pain? Better Did you understand your discharge instructions? Yes Do you have any questions about your discharge instructions? No Were you given any prescriptions at discharge? Yes Were you able to get your prescriptions filled? Yes Do you understand how to take your medications as ordered? Yes Do you have any questions about your follow up appointment and do you plan to keep your follow up appointment? No I see my doctor tomorrow Is there anything else that you would like to discuss? No Questions/Comments/Concerns/Other:
== END 2025-03-03 15:00 | disposition home or self-care (01) | DRG 872 ==
LOC: ER 02-28 01:22 → MS 02-28 07:01
PROVIDERS: Registered Nurse; Admitting Provider Student in an Organized Health Care Education/Training Program; Emergency Provider Internal Medicine; Visit Provider Family Medicine
DX: A41.51 Sepsis due to Escherichia coli [E. coli] (principal); L03.115 Cellulitis of right lower limb; I85.00 Esophageal varices without bleeding; I73.9 Peripheral vascular disease, unspecified; Z87.440 Personal history of urinary (tract) infections; I10 Essential (primary) hypertension; F10.11 Alcohol abuse, in remission; Z87.891 Personal history of nicotine dependence; Z88.0 Allergy status to penicillin; D69.6 Thrombocytopenia, unspecified; M79.604 Pain in right leg; M79.671 Pain in right foot; R50.9 Fever, unspecified; R73.9 Hyperglycemia, unspecified; E83.42 Hypomagnesemia; E80.6 Other disorders of bilirubin metabolism; D63.1 Anemia in chronic kidney disease; K70.30 Alcoholic cirrhosis of liver without ascites
CPT/HCPCS: 36415; 73620; 80053; 80202; 80307; 80320; 82140; 83605; 83735; 85007; 85025; 85027; 85610; 87040; 87075; 87077; 87150; 87186; 93005; 93308; 93926; 93970; 94761; 99283; J1171; J1335; J1650; J2270; J2405; J3370; J3475

== ENCOUNTER 2025-03-04 11:02 | Emergency (ER) | payer OTHER, SELFPAY ==
[2025-03-04 11:21] VITALS: BP 139/89; PULSE 80; TEMP 37.1; O2SAT 97; BMI 26.3
--- NOTE | 2025-03-04 11:26 | ED.GENADUL1 ---
HPI HPI - General Adult General Chief complaint: Extremity Problem, Nontraumatic Stated complaint: RT LEG CELLULITIS TURNED WORSE Time Seen by Provider: 03/04/25 11:21 Source: patient Mode of arrival: walk-in Limitations: no limitations History of Present Illness HPI narrative: 39-year-old male presents to the emergency department for redness pain and swelling in his right lower leg. He was admitted here 5 days ago and discharged yesterday with right leg cellulitis. 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 Since then its become a little bit more swollen and a lot more red and more painful. No chest pain or shortness of breath or fever. Related Data Home Medications ?Medication ?Instructions ?Recorded ?Confirmed spironolactone 50 mg tablet 50 mg PO DAILY 08/12/23 02/28/25 ondansetron 4 mg disintegrating 4 mg PO TID 04/01/24 02/28/25 tablet Previous Rx's ?Medication ?Instructions ?Recorded cefdinir 300 mg capsule 600 mg (2 x 300 mg) PO DAILY #20 03/03/25 caps cefdinir 300 mg capsule 600 mg (2 x 300 mg) PO DAILY #30 03/03/25 caps doxycycline monohydrate 100 mg 100 mg PO BID 14 days #28 caps 03/03/25 capsule doxycycline monohydrate 100 mg 100 mg PO BID 14 days #28 caps 03/03/25 capsule magnesium oxide 400 mg (241.3 mg 400 mg PO BID #60 tabs 03/03/25 magnesium) tablet acetaminophen 300 mg-codeine 30 mg 1 tab PO Q6H PRN pain 5 days #20 03/04/25 tablet tabs Allergies Allergy/AdvReac Type Severity Reaction Status Date / Time amoxicillin Allergy Severe Unknown Verified 03/04/25 11:26 Penicillins Allergy Severe Unknown Verified 03/04/25 11:26 perflutren (From [facility]inRecochem) Allergy Intermediate Muscle Pain Verified 03/04/25 11:26 Opioid HPI Opioid Management Most Recent Opioid Data: Last Pain Scale 9 Today, 11:52 Last Pain Assessment 02/28/25, 03:00 Last MAR Pain Assessment Today, 11:52 Last ORT Total Score 4 02/28/25, 02:19 Last ORT Risk Category Moderate Risk 02/28/25, 02:19 Ur Phencyclidine Scrn, (NEGATIVE) Negative 02/28/25, 09:46 Review of Systems ROS Narrative A ten point review of systems is negative except as noted above. [facility] Medical History (Updated 03/04/25 @ 13:03 by Margarito Sanchez MD) Hyponatremia ?E87.1 - Hypo-osmolality and hyponatremia (ICD-10) Cellulitis of right leg ?L03.115 - Cellulitis of right lower limb (ICD-10) Liver problem ?K76.9 - Liver disease, unspecified (ICD-10) Peripheral vascular disease, unspecified ?I73.9 - Peripheral vascular disease, unspecified (ICD-10) Hyperammonemia ?E72.20 - Disorder of urea cycle metabolism, unspecified (ICD-10) Urinary tract infection ?N39.0 - Urinary tract infection, site not specified (ICD-10) Cellulitis of right leg ?L03.115 - Cellulitis of right lower limb (ICD-10) Hypertension ?I10 - Essential (primary) hypertension (ICD-10) Esophageal varices determined by endoscopy ?I85.00 - Esophageal varices without bleeding (ICD-10) Cellulitis of left leg ?L03.116 - Cellulitis of left lower limb (ICD-10) Fracture, jaw ?S02.609A - Fracture of mandible, unspecified, initial encounter for closed fracture (ICD-10) Immunosuppressed status ?D84.9 - Immunodeficiency, unspecified (ICD-10) Hyperbilirubinemia ?E80.6 - Other disorders of bilirubin metabolism (ICD-10) 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 Smoking status: Former smoker Do you use any of these nicotine containing products: smokeless tobacco Non-prescribed substance use: cannabis (any form) Non-prescribed substance use details: gummies Previous occupational history: [employer] Highest level of school completed/degree received: high school graduate Are you now , , , , never or living with a partner: never In a typical week, how many times do you talk on the telephone with family, friends, or neighbors: 3 or more times per week How often do you get together with friends or relatives: twice per week How often do you attend presybeterian or oriental orthodox services: never Do you belong to any clubs or organizations such as [employer] groups unions, [employer] or athletic groups, or school groups: no Total score: 1 Score interpretation: A score of less than or equal to 1 indicates the most socially isolated. Little interest or pleasure in doing things: not at all Feeling down, depressed, or hopeless: not at all Feel stressed/tense/nervous/anxious/difficulty sleeping: to some extent Life stressor details: Pain in legs Do you think of yourself as: straight/heterosexual Gender Identity: male Exam Narrative Exam Narrative: Nurses note and vital signs reviewed and patient is not hypoxic. General: The patient appears well and in no apparent distress. Patient is resting comfortably on cart. Skin: Warm, dry, no pallor noted. There is no rash noted. Head: Normocephalic, atraumatic Eye: Normal conjunctiva, no drainage Ears, Nose, Mouth, and Throat: oral mucosa is moist. Nares patent. Cardiovascular: Regular Rate and Rhythm Respiratory: Patient is in no distress, no accessory muscle use, lungs are clear to auscultation, no wheezing, rales or rhonchi Back: non-tender GI: Soft and nontender Musculoskeletal: The right leg is swollen from just below the knee down to the ankle and it is quite erythematous and warm to touch. It is significantly swollen compared to the contralateral. Neurological: A&O, normal speech Psychiatric: Cooperative Constitutional Vital Signs, click to edit/add: Last Vital Signs Temp 98.2 F 03/04/25 12:49 Pulse 72 03/04/25 12:49 Resp 18 03/04/25 12:49 BP 122/73 03/04/25 12:49 Pulse Ox 99 03/04/25 12:49 O2 Del Method Room Air 03/04/25 12:49 Course Vital Signs Vital signs: Vital Signs Temperature 98.7 F 03/04/25 11:21 Pulse Rate 80 03/04/25 11:21 Respiratory Rate 16 03/04/25 11:21 Blood Pressure 139/89 03/04/25 11:21 Pulse Oximetry 97 03/04/25 11:21 Oxygen Delivery Method Room Air 03/04/25 11:21 Temperature 98.2 F 03/04/25 12:49 Pulse Rate 72 03/04/25 12:49 Respiratory Rate 18 03/04/25 12:49 Blood Pressure 122/73 03/04/25 12:49 Pulse Oximetry 99 03/04/25 12:49 Oxygen Delivery Method Room Air 03/04/25 12:49 Medical Decision Making MDM Narrative Medical decision making narrative: Dopplers negative and blood work is nonspecific. He has not been staying off of his feet and he actually went to work today he was discharged from the hospital. He was given note to be off of work and was prescribed Tylenol 3 for pain. Treatment diagnosis and follow-up were discussed with the patient. He does not require readmission to the hospital. Differential Diagnosis Differential Diagnosis: Cellulitis, DVT, peripheral edema Lab Data Lab results reviewed: Yes I reviewed the patient's lab results Labs: Lab Results 03/04/25 Range/Units 11:44 WBC 6.0 (4.0-11.0) 10^3/uL RBC 3.14 L (4.70-6.10) 10^6/uL Hgb 11.5 L (14.0-18.0) g/dL Hct 32.1 L (42.0-54.0) % MCV 102.2 H (80.0-94.0) fL MCH 36.6 H (25.9-34.0) pg MCHC 35.8 H (29.9-35.2) g/dL RDW 14.2 (11.0-15.0) % Plt Count 74 L (150-450) 10^3/uL MPV 10.9 (9.5-13.5) fL Neut % (Auto) 62.9 (43.0-75.0) % Lymph % (Auto) 16.4 L (20.5-60.0) % [place] % (Auto) 16.6 H (1.7-12.0) % Eos % (Auto) 2.3 (0.9-7.0) % Baso % (Auto) 0.5 (0.2-2.0) % Neut # (Auto) 3.7 (1.4-6.5) 10^3/uL Lymph # (Auto) 1.0 L (1.2-3.8) 10^3/uL [place] # (Auto) 1.0 H (0.3-0.8) 10^3/uL Eos # (Auto) 0.1 (0.0-0.7) 10^3/uL Baso # (Auto) 0.0 (0.0-0.1) 10^3/uL Abs Immat Gran (auto) 0.08 H (0.00-0.03) 10^3/uL Imm/Tot Granulo (auto) 1.3 H (0.0-0.5) % Sodium 139 (136-145) mmol/L Potassium 3.5 (3.5-5.1) mmol/L Chloride 103 (98-107) mmol/L Carbon Dioxide 28.8 (21.0-32.0) mmol/L Anion Gap 10.7 BUN 14.0 (7.0-18.0) mg/dL Creatinine 0.90 (0.70-1.30) mg/dL Est GFR ( Amer) >60 (>=60 mL/min/1.73m^2) Est GFR (Non-Af Amer) >60 (>=60 mL/min/1.73m^2) BUN/Creatinine Ratio 15.6 Glucose 127 H (74-106) mg/dL Calcium 8.4 L (8.5-10.1) mg/dL Imaging Data Venous Doppler: Radiologist's impression: No DVT Discharge Plan Discharge Chief Complaint: Extremity Problem, Nontraumatic Clinical Impression: Cellulitis Patient Disposition: Home, Self-Care Time of Disposition Decision: 13:03 Condition: Good Mode of Transportation: Private Vehicle Prescriptions / Home Meds: New acetaminophen-codeine 300-30 mg tablet 1 tab PO Q6H PRN (Reason: pain) 5 Days Qty: 20 0RF No Action spironolactone 50 mg tablet 50 mg PO DAILY ondansetron 4 mg tablet,disintegrating 4 mg PO TID magnesium oxide 400 mg (241.3 mg magnesium) Tablet 400 mg PO BID Qty: 60 11RF cefdinir 300 mg capsule 600 mg PO DAILY Qty: 30 0RF doxycycline monohydrate 100 mg capsule 100 mg PO BID 14 Days Qty: 28 0RF cefdinir 300 mg capsule 600 mg PO DAILY Qty: 20 0RF doxycycline monohydrate 100 mg capsule 100 mg PO BID 14 Days Qty: 28 0RF Print Language: Israeli Instructions: Cellulitis (ED) Additional Instructions: Elevate your leg and stay off your feet. Referrals: Physician,Non-Staff, MD [Primary Care Provider] - 1 week
--- OUTSIDE RECORDS SUMMARY | 2025-03-04 11:27 | XMS_ITS | CCD ---
Author Organization [place] Inform ion Partnership [facility] Care Team Providers Care Energy Projects Lead Name Role Phone Link, Colby Bharat Primary Care Physician [phone] Unavailable Primary Care Provider Unavailabl e Unavailable Primary Care Provider Unavailabl e Unavailable Primary Care Provider Unavailabl e Theo Burks MD Primary Care Provider Abbey Alvarez MD Unavailable Gricelda SILVESTRE, Saskia Unavailable [phone] Theo Burks MD Primary Care Provider Abbey Alvarez MD Unavailable Gricelda SILVESTRE, Saskia Unavailable Marcello Ibanez MD Unavailable Gricelda SILVESTRE, Saskia Unavailable [phone] THEO BURKS Primary Care Physician Unavaila ble NONE, XXXX Primary Care Physician Unavailab Jarrod Nettles Unavailable Loreta Cummings Primary Care Physician [phone] Josiane Mccullough MD Primary Care Provider Josiane Mccullough MD Unavailable JOSIANE MCCULLOUGH Primary Care Unavailab MARGARET Justice Attending Unavailable Ella Gonzales Attending Unavailable Ella Gonzales Admitting Unavailable Loreta Cummings Referring Unavailable JERRELL GonzalesPCNP-BC Ella Polk Attending U navailable ELMER Gonzales-BC Ella Polk Admitting U navailable ABDI GonzalesNP-BC Ella Polk Attending U navailable JERRELL GonzalesPCNP-BC Ella Polk Admitting U navailable Demboske, [facility] Ella Polk Attending U navailable Demboske, [facility] Ella Polk Attending U navailable Demboske, [facility] Ella Polk Referring U navailable LORETA CUMMINGS Primary Care Unavailable SINDHU, MOHAMED F Admitting Unavailable SINDHU, MOHAMED F Attending Unavailable MAGED BOLTON Attending Unavailable LORETA CUMMINGS Primary Care Unavailable SINDHU, MOHAMED F Attending Unavailable SINDHU, MOHAMED F Referring Unavailable LORETA CUMMINGS Primary Care Unavailable Kavon Lu Attending Unavailable Tabitha, Kavon Admitting Unavailable Mario vEans Admitting Unavaila ble Mario Evans Attending Unavaila [...] Admitting Unavailable Loreta Cummings Primary Care Physician Kavon Lu Attending Unavailable Tabitha Kavon Admitting Unavailable Vic Carrion Primary Care Physician Kavon Lu Attending Unavailable Mario Evans Referring Unavaila ble Mario Evans Admitting Unavaila ble BryannaminMario montano Attending Unavaila ble SarminiMario Attending Unavaila ble Unavailable Primary Care Provider UnavailLortea Coffman Primary Care Provide r Mario Evans [...] Admitting Unavailable Ella Gonzales Attending Unavailable Loreta Cmumings Admitting Unavailable Loreta Cummings Attending Unavailable Kristine [...] Unavailable Juliet MULTANI, Cristina Primary Care Provider [phone] Evelio Carr DO Unavailable [phone] KENN HICKEY Attending Unavailable EVELIO CARR Referring Unavailable Allergies Allergy Classification Reported Allergen(s) Allergy Type Date of Onset Reaction(s) Facility Penicillins (antibiotic) (2 sources) Amoxicillin; Translations: [amoxicillin] Drug Allergy Unknown (qualifier value) [facility] Perflutren (1 source) Perflutren; Translations: [perflutren] Drug Allergy Back Pain [facility] (20 sources) Amoxicillin; Translations: [amoxicillin] Drug Allergy 02-03-20 03 Unknown (qualifier value), Hives [facility] (20 sources) Penicillin; Translations: [penicillin] Drug Allergy 04-14-20 Other (See Comments) [facility] (1 source) Substance with penicillin structure and antibacterial mechanism of action (substance) Drug allergy Unknown [facility] Other (20 sources) Perflutren; Translations: [perflutren] Drug Allergy 04-14-20 pain [facility] (1 source) PERFLUTREN LIPID MICROSPHERES; Translations: [PERFLUTREN [...] tab(s), Oral, Daily, 90 tab(s), Refill(s) 0, [facility] #[id number], 170, cm, 04/29/24 9:16:00 EDT, Height/Length Dosing, 70.1, kg, 04/29/24 9:16:00 EDT, Weight Dosing Start Date: 04/29/24 Status: Ordered carvedilol 6.25 mg oral tablet (13 sources) alpha-Adrenergic Melvin, beta-Adrenergic Melvin Start: 10-05-2024 take 1 tablet by mouth twice daily Coreg 6.25 mg Tab 6.25 mg = 1 tab(s), Oral, BID, # 180 tab(s), Refills(s) 3, Pharmacy: [facility], 170, cm, 10/05/24 9:01:00 EST, Height/Length Dosing, 78.5, kg, 10/05/24 9:11:00 EST, Weight Dosing Start Date: 10/05/24 Status: Ordered Start: 06-09-2024 take 1 tablet by patricia twice daily Coreg 6.25 mg Tab 6.25 mg = 1 tab(s), Oral, BID, # 60 tab(s), Refills(s) 3, Pharmacy: [facility], 170, cm, 06/09/24 13:35:00 EDT, Height/Length Dosing, 74.2, kg, 06/09/24 13:35:00 EDT, Weight Dosing Start Date: 06/09/24 Status: Ordered cephalexin 500 mg oral capsule (9 sources) Cephalosporin Antibacterial Start: 09-21-2023 End: 09-26-2023 take 1 capsule by mouth every eight hours Keflex 500 mg Cap 500 mg = 1 cap(s), Oral, q8hr, X 5 day(s), # 15 cap(s), Refills(s) 0, [id number], 170, cm, 09/21/23 14:28:00 EST, Height/Length Dosing, [...] 12 cap(s), Refills(s) 1, [id number], 170, cm, 12/23/23 11:10:00 EDT, Height/Length Dosing, [...] 28 cap(s), Refills(s) 0, [facility]: [facility] #[id number], 170, cm, 02/18/23 7:51:00 EDT, Height/Length Dosing, [...] Daily, # 90 tab(s), Refills(s) 3, Pharmacy: [facility] #[id number], 170, cm, 04/29/24 9:16:00 EDT, Height/Length Dosing, [...] day(s), # 180 tab(s), Refills(s) 0, Pharmacy: [facility], 170, cm, 10/26/24 10:30:00 EST, Height/Length Dosing, 78.9, kg, 10/26/24 10:30:00 EST, Weight Dosing Start Date: 11/14/24 Stop Date: 12/14/24 Status: Ordered Start: 10-26-2024 gabapentin 300 mg Cap See Instructions, take per office provided instructions until you are taking 2 tablets three times per day, # 120 tab(s), Refills(s) 0, Pharmacy: [facility], 170, cm, 10/26/24 10:30:00 EST, Height/Length Dosing, 78.9, kg, 10/26/24 10:30:00 EST, Weight Dosing Start Date: 10/26/24 Status: Ordered Start: 07-24-2023 take 1 capsule by mo [facility] twice daily gabapentin 300 mg Cap 300 mg = 1 cap(s), Oral, BID, # 60 cap(s), Refills(s) 0, Pharmacy: [facility] #[id number], 170, cm, 07/24/23 7:59:00 EST, Height/Length Dosing, [...] DAILY, # 3,600 mL, Refills(s) 3, Pharmacy: [facility] #[id number], 170, cm, 05/12/24 15:39:00 EDT, Height/Length Dosing, 73, kg, 05/12/24 15:39:00 EDT, Weight Dosing Start Date: 05/31/24 Status: Ordered Start: 02-24-2024 take 20 g by mouth f our times daily lactulose 10 g/15 mL Oral Syrup 20 gm = 30 mL, Oral, QID, # 3,600 mL, Refills(s) 1, Pharmacy: [facility] #[id number], 170, cm, 01/27/24 9:52:00 EDT, Height/Length Dosing, 74.6, kg, 01/27/24 9:52:00 EDT, Weight Dosing Start Date: 02/24/24 Status: Ordered Start: 10-28-2023 take 20 g by mouth f our times daily lactulose 10 g/15 mL Oral Syrup 20 gm = 30 mL, Oral, QID, # 3,600 mL, Refills(s) 1, Pharmacy: [facility] #[id number], 160, cm, 10/28/23 9:43:00 EST, Height/Length Dosing, [...] patches if insurance coverage issue, [facility] #[id number], 170, cm, 08/26/23 9:52:00 EST, Height/Length Dosing, 68.5, kg, 08/26/23 9:52:00 EST, Weight Dosing Start Date: 08/26/23 Status: Ordered Start: 08-26-2023 apply 28.5 g topical ly twice daily lidocaine 3% topical gel See Instructions, 28.5 gm, Refill(s) 0, Topical BID apply a thin film to the affected areas may substitute for 2 % if this is not available, [facility] #[id number], 170, cm, 08/26/23 9:52:00 EST, Height/Length Dosing, [...] SPARINGLY, # 30 tab(s), Refills(s) 2, [id number], 170, cm, 05/12/24 15:39:00 EDT, Height/Length Dosing, 73, kg, 05/12/24 15:39:00 EDT, Weight Dosing Start Date: 05/23/24 Status: Ordered Start: 04-29-2024 take 1 tablet by patricia th once daily at mealtime meloxicam 7.5 mg Tab 7.5 mg = 1 tab(s), Oral, Daily, take with food and sparingly, # 30 tab(s), Refills(s) 0, [id number], 170, cm, 04/29/24 9:16:00 EDT, Height/Length Dosing, [...] Start Date: 07/24/23 Status: Ordered Start: 07-24-2023 [facility] Presc ription See Instructions, [place] SAP Dressing 4 x 4 dressing Start Date: 07/24/23 Status: Ordered Start: 07-24-2023 [facility] Presc ription See Instructions, Muscle & joint balm CBD 880mg Start Date: 07/24/23 Status: Ordered [facility] Prescription (7 sources) Start: 07-24-2023 [facility] Prescription Bee Venom, Daily Start Date: 07/24/23 [...] symptoms, # 1 kit(s), Refills(s) 0, Pharmacy: [facility], 170, cm, 10/05/24 9:01:00 EST, Height/Length Dosing, 78.5, kg, 10/05/24 9:11:00 EST, Weight Dosing Start Date: 10/05/24 Status: Ordered Start: 10-28-2023 naloxone 4 mg/ actuation nasal spray (NARCAN) 1 [place] by nasal (alternating) route. 0 10/28/2023 Active Start: 10-28-2023 Narcan 4 mg/0. 1 mL nasal spray 4 mg, Nasal, As Directed, for suspected overdose symptoms, # 1 kit(s), Refills(s) 0, Pharmacy: [id number], 160, cm, 10/28/23 9:43:00 EST, Height/Length Dosing, [...] Nausea, # 60 tab(s), Refills(s) 0, Pharmacy: [facility] #[id number], 170, cm, 05/12/24 15:39:00 EDT, Height/Length Dosing, 73, kg, 05/12/24 15:39:00 EDT, Weight Dosing Start Date: 05/31/24 Status: Ordered Start: 12-23-2023 take 1 tablet by patricia th three times daily as needed for nausea Zofran ODT 4 mg Tab 4 mg = 1 tab(s), Oral, TID, PRN Nausea, # 60 tab(s), Refills(s) 0, Pharmacy: [facility] #[id number], 170, cm, 12/23/23 11:10:00 EDT, Height/Length Dosing, 70.3, kg, 12/23/23 11:10:00 EDT, Weight Dosing Start Date: 12/23/23 Status: Ordered Start: 10-28-2023 take 1 tablet by patricia th three times daily as needed for nausea Zofran ODT 4 mg Tab 4 mg = 1 tab(s), Oral, TID, PRN Nausea, # 60 tab(s), Refills(s) 0, Pharmacy: [facility][id number], 160, cm, 10/28/23 9:43:00 EST, Height/Length Dosing, [...] only, # 28 tab(s), Refills(s) 0, Pharmacy: [facility], 170, cm, 10/05/24 9:01:00 EST, Height/Length [...] only, # 28 tab(s), Refills(s) 0, Pharmacy: [facility] #[id number], 170, cm, 01/27/24 9:52:00 EDT, Height/Length Dosing, 74.6, kg, 01/27/24 9:52:00 EDT, Weight Dosing Start Date: 01/27/24 Status: Ordered Start: 10-28-2023 take 0.5 tablet by m outh every six hours as needed for pain oxyCODONE 5 mg Tab 0.5 tab, Oral, q6hr, PRN for pain, for leg pain, # 28 tab(s), Refills(s) 0, Pharmacy: [facility] #[id number], 160, cm, 10/28/23 9:43:00 EST, Height/Length Dosing, [...] nausea/vomiting, # 30 tab(s), Refills(s) 0, Pharmacy: [facility] #[id number], 170, cm, 04/29/24 9:16:00 EDT, Height/Length Dosing, 70.1, kg, 04/29/24 9:16:00 EDT, Weight Dosing Start Date: 04/29/24 Status: Ordered spironolactone 50 mg oral tablet (20 sources) Aldosterone Antagonist Start: 11-21-2024 End: 11-16-2025 take 1 tablet by mouth once daily spironolactone 50 mg Tab 50 mg = 1 tab(s), Oral, Daily, X 90 day(s), # 90 tab(s), Refills(s) 3, Pharmacy: [facility], 170, cm, 11/21/24 9:32:00 EDT, Height/Length Dosing, 77.5, kg, 11/21/24 9:32:00 EDT, Weight Dosing Start Date: 11/21/24 Stop Date: 11/16/25 Status: Ordered Start: 01-20-2024 take 1 tablet by patricia th once daily spironolactone 50 mg Tab 50 mg = 1 tab(s), Oral, Daily, # 90 tab(s), Refills(s) 3, Pharmacy: [facility][id number], 170, cm, 12/23/23 11:10:00 EDT, Height/Length Dosing, [...] day(s), 28 tab(s), Refill(s) 0, [facility] #[id number], 170, cm, 03/22/23 20:14:00 EDT, Height/Length Dosing, [...] Start: 12-23-2023 take 1 capsule by mo [facility] twice daily ursodiol 300 mg Cap 300 mg = 1 cap(s), Oral, BID, # 60 cap(s), Refills(s) 1, [facility]: [facility] #[id number], 170, cm, 12/23/23 11:10:00 EDT, Height/Length Dosing, 70.3, kg, 12/23/23 11:10:00 EDT, Weight Dosing Start Date: 12/23/23 Status: Ordered Zofran ODT 4 mg Tab-Dis (20 sources) Start: 09-30-2023 take 1 tablet by mouth every eight hours as needed for nausea Zofran ODT 4 mg Tab-Dis 4 mg = 1 tab(s), Oral, q8hr, PRN Nausea/Vomiting, # 60 tab(s), Refills(s) 12, [facility]acy: [facility] #[id number], 170, cm, 09/30/23 9:19:00 EST, Height/Length Dosing, 69, kg, 09/30/23 9:19:00 EST, Weight Dosing Start Date: 09/30/23 Status: Ordered Start: 03-22-2023 take 1 tablet by [facility] every eight hours as needed for nausea Zofran ODT 4 mg Tab-Dis 4 mg = 1 tab(s), Oral, q8hr, PRN Nausea/Vomiting, # 20 tab(s), Refills(s) 0, [facility]acy: [facility] #[id number], 170, cm, 03/22/23 20:14:00 EDT, Height/Length Dosing, [...] 05/06/2022 Discontinued (Therapy completed) 168 hr cloNIDine 0.95797 mg/hr transdermal system (1 source) Central alpha-2 [...] 01-09-2022 2 mg, Oral, EVERY 2 HOURS ME N, Starting on Thu01/08/22 at 1755, Until [...] tablet by mouth twice daily Potassium Chloride (Kge-Gxal-Yrj M20) 20 mEq oral tablet, extended release 20 mEq = 1 tab(s), Oral, BID, # 30 tab(s), Refills(s) 3, Pharmacy: [facility] #[id number], 170, cm, 07/24/23 7:59:00 EST, Height/Length Dosing, 73.5, kg, 07/24/23 7:59:00 EST, Weight Dosing Start Date: 07/24/23 Status: Ordered Start: 11-14-2022 take 1 tablet by [facility] once daily potassium chloride SA (K-DUR) [...] aftercare (4 sources) Antibiotic prophylaxis indicated; Translations: [manager intermediate (current) use of antibiotics] Episodic Other aftercare (5 sources) Drug therapy status; Translations: [Other manager intermediate (current) drug therapy] Episodic Other aftercare (1 source) Long-term current use of drug therapy; Translations: [Other halfway (current) drug therapy] Onset: 3 Episodic Other [...] Date Episodic/Chronic Other aftercare (1 source) Other manager intermediate (current) drug therapy; Translations: [Other manager intermediate (current) drug therapy] Onset: 10-01-2023 Episodic Other aftercare (1 source) manager intermediate (current) use of antibiotics; Translations: [custodial (current) use of antibiotics] Onset: 10-01-2023 Episodic [...] WILL RALPH/Sex: 1985 Male Med Rec #: [id number] Physician: Evelio Carr DO Financial #: [id number] Pt. Type: P Room/Bed: / Admit/Disch: 01/03/25 [...] Liu RN Role Performed Surgeon - Primary [employer] - Primary Scrub - Primary Time In 01/03/25 11:40:00 01/03/25 11:40:00 01/03/25 11:40:00 Time Out 01/03/25 11:52:00 01/03/25 11:52:00 01/03/25 11:52:00 Procedure OTHER NERVE BLOCK(Right) OTHER NERVE BLOCK(Right) OTHER NERVE BLOCK(Right) Comments Last Modified By: Micky GREER, Ronda Weeks RN, Ronda West RN 01/03/25 11:51:19 01/03/25 11:51:19 01/03/25 11:51:19 Entry 4 Case Attendee Lisandra Sauer Role Performed Getterer Time In 01/03/25 11:40:00 Time Out 01/03/25 [...] and tissue Entry 1 Skin Integrity Intact, Fair Plain, Warm, & Skin Abnormality No Dry Outcomes [...] injury rel (more content not included)... Normal [facility] Main OR Preoperative Recordo n 01-03-2025 Main OR Preoperative Record Main OR Preoperative Record Holding Area Document Type FTPM Summary Primary Physician: Evelio Carr DO Finalized Date/Time: 01/03/25 10:50:35 Pt. Name: WILL RALPH./Sex: 1985 Male Med Rec #: [id number] Physician: Evelio Carr DO Financial #: [id number] Pt. Type: P Room/Bed: / Admit/Disch: 01/03/25 [...] By: Belén Huffman RN 01/03/25 10:50 Normal [facility] Ambulatory Visit Summaryon 0 12-21-2024 Ambulatory Visit [...] AM EDT With: Vic Carrion Where: [facility] [address], [facility] [place] [address] 2025 2:40 PM EST With: Kavon Lu DO Where: [facility] You Need to Schedule the Following Appointments Follow Up with Vic Carrion, [facility] When: Comments: as scheduled Where: [address], [address] [facility] [address] [place] [phone] Medications What How Much When Why Instructions Unchanged carvedilol (Coreg 6.25 mg Tab) 1 Tablets By Mouth 2 times a day HTN (hypertension) Unchanged furosemide (furosemide 20 mg Tab) 1 Tablets By Mouth Every day as needed for Edema Unchanged magnesium citrate By Mouth Unchanged [facility] Prescription (BP cuff device and appropriate size please) See instructions HTN (hypertension) BP Device/ machine and cuff (size appropriate) Unchanged Misc Prescription ([facility] Prescription) See instructions [place] SAP Dressing 4 x 4 dressing Unchanged Misc Prescription ([facility] Prescription) See instructions LiquidIV hydration Unchanged Misc Prescription ([facility] Prescription) See instructions Muscle & joint balm CBD 880mg Unchanged naloxone (Narcan 4 mg/ 0.1 mL nasal spray) 4 Milligram Nasal Inhalation As Directed Pain for suspected overdose symptoms Pickup at [facility] Unchanged ondansetron (Zofran ODT 4 mg [...] leg pain- severe pain only Pickup at [facility] Unchanged spironolactone (spironolactone 50 mg Tab) 1 Tablets By Mouth Every day Duration: 90 Days Pharmacy Information [facility]: [address] [place], [place] [id number] [phone] Allergies Definity (Back Pain) amoxicillin (Unknown) penicillin [...] n (more content not included)... Normal [facility] Family Medicine Office/Clini c Noteon 12-21-2024 Family [...] only, # 20 tab(s), Refills(s) 0, Pharmacy: [facility], 170, cm, 12/21/24 8:26:00 EDT, Height/Length [...] only, # 20 tab(s), Refills(s) 0, Pharmacy: [facility], 170, cm, 12/21/24 8:26:00 EDT, Height/Length Dosing, 77.2, kg, 12/21/24 8:33:00 EDT, Weight Dosing 6. Peripheral vascular disease (I73.9: Peripheral vascular disease, unspecified) see above. Ordered: oxycodone, 0.5 tab, Oral, q6hr, PRN for pain, for leg pain- severe pain only, # 20 tab(s), Refills(s) 0, Pharmacy: [facility], 170, cm, 12/21/24 8:26:00 EDT, Height/Length Dosing, 77.2, kg, 12/21/24 8:33:00 EDT, Weight Dosing Orders: naloxone, 4 mg, Nasal, As Directed, for suspected overdose symptoms, # 1 kit(s), Refills(s) 0, Pharmacy: [facility], 170, cm, 12/21/24 8:26:00 EDT, Height/Length Dosing, 77.2, kg, 12/21/24 8:33:00 EDT, Weight Dosing Total time spen (more content not included)... Normal [facility] Comment on above: Result Comment: Elec tronically Signed By: Rachel ALBERTS, Vic Friedman\\.br\\Date and Time Signed: 12/21/24 09:05 EDT Reminderson 12-09-2024 Reminders Reminders From: Naty Garcia MA To: [facility] - Reminders/Recalls; Sent: 12/09/2024 11:32:43 EDT Show up: 10/08/2025 11:32:00 EST Subject: EGD recall Due Date/Time: 11/18/2025 11:32:00 EDT Reminder/Recall [address] Evans 11/18/24 [facility] MRI Spine Lumbar w/o Contras ton [...] Almeida MD Transcribed by: JUNIOR Technologist: JPD [facility] Ambulatory Visit Summaryon 0 11-21-2024 Ambulatory [...] Appointments Thursday 8:40 AM EDT With: Vic Carroin Where: [facility] [address] [place] [address]25 2:40 PM EST With: Kavon Lu DO Where: [facility] You Need to Schedule the Following Appointments Follow Up with Carrol MULTANI, Mario Xiong, [facility], [facility] When: In 3 months Where: [address], [address] [address] [phone] You Need to Complete the Following CBC [...] Duration: 90 Days Refills: 3 Pickup at [facility] Unchanged carvedilol (Coreg 6.25 mg Tab) [...] Misc Prescription (Misc DME Prescription) See instructions [place] SAP Dressing 4 x 4 dressing Contact [...] physician if questions or concerns Pharmacy Information [facility]: [address] [place], [place] [id number] [phone] Allergies Definity (Back Pain) amoxicillin (Unknown) penicillin [...] 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 Normal [facility] Gastroenterology Office/Clin ic Noteon 11-21-2024 Gastroenterology Office/Clinic [...] fL High (11/11/24) Chloride: 105 mmol/L (11/11/24) [place] Absolute: 0.4 E9/L (11/11/24) CO2: 27 mmol/L (11/11/24) [place] Auto: 9.7 % (11/11/24) Creatinine: 0.5 mg/dL [...] 2.5 years Liver biopsy was done at [facility], gradient was 14 mmHg Liver [...] Mario Xiong, JOE, MED In [address] [place] [address] [place], [address] [address] [phone] Additional Instructions: Problem List/Past Medical History Ongoing Abnormal stress test Alcohol use disorder in remission Anemia BMI 26.0-26.9,adult Cellulitis of right leg Cholelithiases Cirrhosis Dependent edema Diarrhea Elevated fasting glucose Elevated INR Elevated liver enzymes Epigastric pain Esophageal varices Headache Hemolytic anemia HTN (hypertension) Hypokalemia Iron deficiency anemia Liver cirrhosis, al (more content not included)... Normal [facility] Comment on above: Result Comment: Elec tronically Signed By: Mario Evans MD\\.br\\Date and Time Signed: 11/21/24 10:25 EDT\\.br\\Electronically Co-Signed By: Joy Bentley MA\\.br\\Date and Time Co-Signed: 11/21/24 10:18 EDT Main OR Intraoperative Recor don 11-21-2024 Main OR Intraoperative Record Main OR Intraoperative Record IntraOp Document Type FT Summary Primary Physician: Mario Evans MD Finalized Date/Time: 11/21/24 11:21:46 Pt. Name: WILL RALPH./Sex: 1985 Male Med Rec #: [id number] Physician: Mario Evans MD Financial #: [id number] Pt. Type: O Room/Bed: / Admit/Disch: 11/18/24 [...] Ware RN, Eve Do Role Performed Anesthesiologist [employer] Officer - Primary Scrub - Primary Math Professor Time In 11/18/24 08:54:00 11/18/24 08:54:00 [...] and tissue Entry 1 Skin Integrity Intact, Fair Plain, Warm, & Skin Abnormality No Dry Outcomes [...] Device Safet (more content not included)... Normal [facility] Reminderson 11-21-2024 Reminders Reminders From: Grace Galaviz I To: [facility] - Reminders/Recalls; Sent: 11/21/2024 07:32:43 EDT Show up: 10/08/2025 07:32:00 EST Subject: EGD recall Due Date/Time: 11/18/2025 07:32:00 EDT Reminder/Recall [address] Evans 11/18/24 Normal [facility] XR Spine Lumbosacral Minimum 4 Viewson 11-21-2024 [...] DO Transcribed by: JUNIOR Technologist: MICKI Normal [facility] XR Foot 3+ Views Righton XR Foot [...] Gerson Barrera MD Transcribed by: JUNIOR Technologist: [facility] Normal [facility] Ambulatory Visit Summaryon 0 11-18-2024 Ambulatory Visit [...] With: Carrol MULTANI, Mario Xiong Where: [facility] [address] [facility] [address] [facility] [address] [place] [address]- Thursday 8:40 AM EDT With: Vic Carrion Where: [facility] [address] [place] [address]25 2:40 PM EST With: [...] Misc Prescription (Misc DME Prescription) See instructions [place] SAP Dressing 4 x 4 dressing Unchanged [...] for choosing us for your care. Normal [facility] Discharge Instructionson Discharge Instructions Discharge Instructions WILL [...] With: Carrol MULTANI, Mario Xiong Where: [facility] [address] [address] Thursday 8:40 AM EDT With: Vic Carrion Where: [facility] [address] [facility] [address] [place] [address]25 2:40 PM EST With: [...] Misc Prescription (Misc DME Prescription) See instructions [place] SAP Dressing 4 x 4 dressing Unchanged [...] have a (more content not included)... Normal [facility] Comment on above: Result Comment: Elec tronically Signed By: Andres GREER, Bhumika\\.br\\Date and Time Signed: 11/18/24 09:10 EDT Family [...] with voice recognition software. Occasional wrong-word or ???[id number]??? substitutions may have occurred due to the [...] feels he needs further pain medication than [id number] prescribed he needs to reach out to [...] Follow-up With When Contact Information Vic Carrion, [facility] Additional Instructions: Patient Education How [...] Megaloblastic anem (more content not included)... Normal [facility] Comment on above: Result Comment: Elec tronically Signed By: Harshad PARKER, Keith Underwood\\.br\\Date and Time Signed: 11/18/24 18:59 EDT Inpatient Patient Summaryon 11-18-2024 Inpatient Patient Summary Inpatient Patient Summary [place] [address] [facility] Clinical Discharge Instructions PERSON INFORMATION Name: [facility] Admitting Physician: Mario Evans MD Attending Physician: Mario Evans MD PCP: Vic Carrion Discharge Diagnosis: Cirrhosis Comment: PATIENT EDUCATION INFORMATION Instructions: Medication Leaflets: Follow up: Type Location Start Finish State Pain Management - Follow Up (FT) FT.Pain Mgmt [place] 11/21/2024 8:30 AM 11/21/2024 8:45 AM Confirmed BADH Follow Up [facility] 11/21/2024 9:15 AM 11/21/2024 9:30 AM Confirmed FM Open [facility] 04/07/2025 8:40 AM 04/07/2025 9:00 [...] Refills: 0. Misc Prescription (Misc DME Prescription) [place] SAP Dressing 4 x 4 dressing. Misc [...] Mouth every day. Refills: 3. Comment: Dung [facility] Main OR PACU II Recordon Main OR PACU II Record Main OR PACU II Record PACU Phase II Document Type FT Summary Primary Physician: Mario Evans MD Finalized Date/Time: 11/18/24 09:24:26 Pt. Name: WILL RALPH/Sex: 1985 Male Med Rec #: [id number] Physician: Mario Evans MD Financial #: [id number] Pt. Type: O Room/Bed: / Admit/Disch: 11/18/24 [...] Signed By: Bhumika Campos RN 11/18/24 09:24 [facility] Main OR Preoperative Recordo n 11-18-2024 Main OR Preoperative Record Main OR Preoperative Record Holding Area Document Type FT Summary Primary Physician: Mario Evans MD Finalized Date/Time: 11/18/24 08:25:00 Pt. Name: WILL RALPH/Wesley: 1985 Male Med Rec #: [id number] Physician: Mario Evans MD Financial #: [id number] Pt. Type: O Room/Bed: / Admit/Disch: 11/18/24 [...] By: Alondra Lopez RN 11/18/24 08:25 Normal [facility] Outpatient Surgery Discharge Instructionon 11-18-2024 Outpatient Surgery Discharge Instruction Outpatient Surgery Discharge Instruction [address] [address] Patient Discharge Instructions PERSON INFORMATION [...] Management - Follow Up (FT) FT.Pain Mgmt [place] 11/21/2024 8:30 AM 11/21/2024 8:45 AM Confirmed BADH Follow Up [facility] 11/21/2024 9:15 AM 11/21/2024 9:30 AM Confirmed [facility] 04/07/2025 8:40 AM 04/07/2025 9:00 [...] serve you. Thank you for choosing [facility] HERE ARE THE MEDICATION CHANGES [...] cuff (size appropriate). Refills: 0. Misc Prescription ([facility] Prescription) [place] SAP Dressing 4 x 4 dressing. Misc Prescription ([facility] Prescription) LiquidIV hydration. Misc Prescription ([facility] Prescription) Muscle & joint balm CBD [...] PATIENT EDUCATION INFORMATION Instructions: Medication Leaflets: Normal [facility] AFPon 11-12-2024 AFP.tumor marker [Mass/Vol] 4.3 ng/mL Invalid Interpretation Code 0.0-6.9 [facility] Comment on above: Result Comment: [employer] Electrochemiluminescence Immunoassay (ECLIA) Values obtained with different assay methods or kits cannot be used interchangeably. Results cannot be interpreted as absolute evidence of the presence or absence of malignant disease. This test is not interpretable in females. Performed at: [address] [id number] PhD Poncho Prater Performed By: #### 2 [id number] ####[facility] [id number] [place] [address] CBC w/ Auto Diffon 5 Basophils/100 WBC (Bld) 0.9 % Normal 0.0-2.0 [facility] Comment on above: Performed By: #### 2 [id number] #### [facility] [address] [place] [address] Basophils/Leukocytes Auto (Bld) [Pure # fraction] 0.0 E9/L Normal 0.0-0.2 [facility] Comment on above: Performed By: #### 2 [id number] #### [facility] [address] [place] [address] Eosinophils (Bld) [#/Vol] 0.2 E9/L Normal 0.0-0.5 [facility] Comment on above: Performed By: #### 2 [id number] #### [facility] [address] [place] [address] Eosinophils/100 WBC (Bld) 4.2 % Normal 0.0-8.0 [facility] Comment on above: Performed By: #### 2 [id number] #### [facility] [address] [place] [address] Erythrocyte distribution width (RBC) [Ratio] 15.3 % High 10.9-14.2 [facility] Comment on above: Performed By: #### 2 636757 #### [facility] [address] [place] [address] Hematocrit (Bld) [Volume fraction] 41.8 % Normal 37.7-49.0 [facility] Comment on above: Performed By: #### 2 [id number] #### [facility] [address] [place] [address] Hemoglobin (Bld) [Mass/Vol] 14.5 g/dL Normal 13.5-17.5 [facility] Comment on above: Performed By: #### 2 [id number] #### [facility] [address] [place] [address] Lymphocytes (Bld) [#/Vol] 1.0 E9/L Normal 1.0-4.0 [facility] Comment on above: Performed By: #### 2 113169 #### [facility] [address] [place] [address] Lymphocytes/100 WBC (Bld) 22.4 % Normal 14.0-50.0 [facility] Comment on above: Performed By: #### 2 [id number] #### [facility] [address] [place] [address] MCH (RBC) [Entitic mass] 36.4 pg High 27.0-34.0 [facility] Comment on above: Performed By: #### 2 704403 #### [facility] [address] [place] [address] MCHC (RBC) [Mass/Vol] 34.7 g/dL Normal 31.4-36.0 [facility] Comment on above: Performed By: #### 2 346263 #### [facility] [address] [place] [address] MCV (RBC) [Entitic vol] 104.7 fL High 80.0-100.0 [facility] Comment on above: Performed By: #### 2 [id number] #### [facility] [address] [place] [address] Monocytes (Bld) [#/Vol] 0.4 E9/L Normal 0.2-1.0 [facility] Comment on above: Performed By: #### 2 161154 #### [facility] [address] [place] [address] Neutrophils (Bld) [#/Vol] 2.8 E9/L Normal 2.0-7.5 [facility] Comment on above: Performed By: #### 2 747891 #### [facility] [address] [place] [address] Neutrophils/100 WBC (Bld) 62.8 % Normal 36.0-75.0 [facility] Comment on above: Performed By: #### 2 016505 #### [facility] [address] [place] [address] Platelet 84.0 E9/L Low 150.0-500.0 [facility] Comment on above: Performed By: #### 2 549349 #### [facility] [address] [place] [address] Platelet mean volume (Bld) [Entitic vol] 8.2 fL Normal 6.4-10.8 [facility] Comment on above: Performed By: #### 2 746351 #### [facility] [address] [place] [address] RBC (Bld) [#/Vol] 4.0 E12/L Low 4.3-5.9 [facility] Comment on above: Performed By: #### 2 508612 #### [facility] [address] [place] [address] WBC corrected for nucl RBC Auto (Bld) [#/Vol] 4.4 E9/L Normal 4.0-11.0 [facility] Comment on above: Performed By: #### 2 925452 #### [facility] [address] [place] [address] CMPon 11-11-2024 Albumin [Mass/Vol] 3.6 g/dL Normal 3.3-5.0 [facility] Comment on above: Performed By: #### 2 866393 #### [facility] [address] [place] [address] Albumin/Globulin (S) [Mass conc ratio] 1.0 Low 1.1-2.2 [facility] Comment on above: Performed By: #### 2 027418 #### [facility] [address] [place] [address] ALP [Catalytic activity/Vol] 159 Int._Unit/L High 21-98 [facility] Comment on above: Performed By: #### 2 567001 #### [facility] [address] [place] [address] ALT No additional P-5'-P [Catalytic activity/Vol] 46 Int._Unit/L Normal 6-46 [facility] Comment on above: Performed By: #### 2 140884 #### [facility] [address] [place] [address] Anion gap [Moles/Vol] 8 mmol/L Normal 6-16 [facility] Comment on above: Performed By: #### 2 346087 #### [facility] [address] [place] [address] AST [Catalytic activity/Vol] 59 Int._Unit/L High 5-43 [facility] Comment on above: Performed By: #### 2 177932 #### [facility] [address] [place] [address] Bilirubin [Mass/Vol] 2.6 mg/dL High 0.0-1.1 [facility] Comment on above: Performed By: #### 2 779791 #### [facility] [address] [place] [address] Calcium [Mass/Vol] 9.0 mg/dL Normal 8.9-11.1 [facility] Comment on above: Performed By: #### 2 207924 #### [facility] [address] [place] [address] Chloride [Moles/Vol] 105 mmol/L Normal 101-111 [facility] Comment on above: Performed By: #### 2 476126 #### [facility] [address] [place] [address] CO2 [Moles/Vol] 27 mmol/L Normal 21-31 [facility] Comment on above: Performed By: #### 2 680599 #### [facility] [address] [place] [address] Creatinine [Mass/Vol] 0.5 mg/dL Normal 0.5-1.3 [facility] Comment on above: Performed By: #### 2 897666 #### [facility] [address] [place] [address] Globulin (S) [Mass/Vol] 3.5 g/dL Normal 1.4-4.0 [facility] Comment on above: Performed By: #### 2 438888 #### [facility] [address] [place] [address] Glucose [Mass/Vol] 96 mg/dL Normal 55-199 [facility] Comment on above: Performed By: #### 2 260968 #### [facility] [address] [place] [address] Potassium [Moles/Vol] 4.4 mmol/L Normal 3.5-5.3 [facility] Comment on above: Performed By: #### 2 050509 #### [facility] [address] [place] [address] Protein [Mass/Vol] 7.1 g/dL Normal 6.0-7.8 [facility] Comment on above: Performed By: #### 2 163098 #### [facility] [address] [place] [address] Sodium [Moles/Vol] 136 mmol/L Normal 135-145 [facility] Comment on above: Performed By: #### 2 669523 #### [facility] [address] [place] [address] Urea nitrogen [Mass/Vol] 12 mg/dL Normal 5-21 [facility] Comment on above: Performed By: #### 2 510176 #### [facility] [address] [place] [address] Urea nitrogen/Creatinine [Mass ratio] 24 No Units High 10-20 [facility] Comment on above: Performed By: #### 2 053536 #### [facility] [address] [place] [address] PT & PTTon 11-11-2024 aPTT Coag (PPP) [Time] 38.8 second(s) High 25.1-36.5 [facility] Comment on above: Result Comment: Para meter [...] coagulation reagent and instrumentation as [facility]. Currently there are no coagulation studies available worldwide for children to 14 days, and no normal ranges. Heparin therapeutic range (represented by Anti-Factor Xa activity of 0.2 - 0.4 U/mL) corresponds to PTT of 56.6 - 109.0 sec. Performed By: #### 1 [id number] #### [facility] [address] [place] [address] INR Coag (PPP) [Relative time] 1.33 {INR} Invalid Interpretation Code [facility] Comment on above: Result Comment: INR results are specifically intended to assess patients stabilized on long-term Anticoagulation therapy suggested INR???s ???Less Intensive Anticoagulation??? 2.0 ??? 3.0 Conventional Range 3.0 ??? 4.5 Performed By: #### 1 [id number] #### [facility] [address] [place] [address] PT Coag (PPP) [Time] 14.9 second(s) High 9.4-12.5 [facility] Comment on above: Result Comment: 15 d [...] coagulation reagent and instrumentation as [facility]. Currently there are no coagulation studies available worldwide for children to 14 days, and no normal ranges. Performed By: #### 1 [id number] #### [facility] [address] [place] [address] Liveron 11-11-2024 US Liver Exam Date/Time: 11/11/2024 08:57 EST Reason for Exam: K74.60;Elevated LFTs Report IMPRESSION: Cirrhotic liver morphology without focal hepatic lesion. Cholelithiasis. EXAMINATION: US Liver HISTORY: Cirrhosis. Cholelithiasis. TECHNIQUE: Sonography of the right upper quadrant was performed. Images were obtained and stored in a permanent archive. Unless otherwise stated, incidental findings identified in this report do not require routine follow-up imaging.\\[id number]\\ COMPARISON: 05/24/2024. RESULT: Pancreas: Normal sonographic appearance [...] MD Transcribed by: JUNIOR Technologist: LEONARDA Normal [facility] eGFRon 11-11-2024 eGFR 132 mL/min/1.73 m2 Normal >=59 [facility] Comment on above: Performed By: #### 1 [id number] #### [facility] [address] [place] [address] Ambulatory Visit Summaryon 0 10-05-2024 Ambulatory Visit [...] With: Carrol MULTANI, Mario Xiong Where: [facility] [address] [place] [address] [place] [address]- Thursday 8:40 AM EDT With: Vic Carrion Where: [facility] Primary Care [address], [place] [address] 2:40 PM EST With: Kavon Lu DO Where: [facility] You Need to Schedule the Following Appointments Follow Up with Vic Carrion, [facility] When: In 6 months Comments: sooner if needed. keep specialists appointments. Where: [address], [address] [facility] [address] [place] [phone] Medications What How Much When Why Instructions Unchanged carvedilol (Coreg 6.25 mg Tab) 1 Tablets By Mouth 2 times a day HTN (hypertension) Pickup at [facility] Unchanged furosemide (furosemide 20 mg Tab) 1 Tablets By Mouth Every day Unchanged magnesium citrate By Mouth Unchanged Misc Prescription (BP cuff device and appropriate size please) See instructions HTN (hypertension) BP Device/ machine and cuff (size appropriate) Unchanged Misc Prescription (lactulose (lactulose 10 g/ 15 mL Oral Syrup)) 0 Unchanged Misc Prescription (Misc DME Prescription) See instructions [place] SAP Dressing 4 x 4 dressing Unchanged Misc Prescription (Misc DME Prescription) See instructions LiquidIV hydration Unchanged Misc Prescription (Misc DME Prescription) See instructions Muscle & joint balm CBD 880mg Unchanged naloxone (Narcan 4 mg/ 0.1 mL nasal spray) 4 Milligram Nasal Inhalation As Directed Pain for suspected overdose symptoms Pickup at [facility] Unchanged ondansetron (Zofran ODT 4 mg Tab) 1 Tablets By Mouth 3 times a day as needed for Nausea Nausea Unchanged oxycodone (oxyCODONE 5 mg Tab) 0.5 tab By Mouth Every 6 hours as needed for for pain Peripheral vascular disease Leg pain for leg pain- severe pain only Pickup at [facility] Unchanged spironolactone (spironolactone 50 mg Tab) 1 Tablets By Mouth Every day Pharmacy Information [facility]: [address] [place], [place] [id number] [phone] Allergies Definity (Back Pain) amoxicillin (Unknown) penicillin [...] experience wi (more content not included)... Normal [facility] Family Medicine Office/Clini c Noteon 10-05-2024 Family [...] states he saw a vascular doctor in [place] from when he was at [facility]. 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 He denies numbness and tingling. He [...] cellulitis Patient went to a specialist in [place]- Vascular Dr Bertrand - Angiogram was done, [...] with hematology.- [facility] Liver enzymes are elevated with recent lab work but trends up and down. patient has stopped (more content not included)... Normal [facility] Comment on above: Result Comment: Elec tronically Signed By: Vic Carrion\\.br\\Date and Time Signed: 10/05/24 09:53 EST Free K+L Lt Chains,Qn,Son Immunoglobulin light chains.kappa.free (S) [Mass/Vol] 21.1 mg/L High 3.3-19.4 [facility] Comment on above: Performed By: #### 2 [id number] #### [facility] [address] [place] [address] Immunoglobulin light chains.kappa.free/Im munoglobulin light chains.lambda.free (S) [Mass ratio] 1.50 Invalid Interpretation Code 0.26-1.65 [facility] Comment on above: Result Comment: Perf ormed at: [facility] [address] [id number] PhD Poncho Prater Performed By: #### 2 [id number] #### [facility] [address] [place] [address] Immunoglobulin light chains.lambda.free [Mass/Vol] 14.1 mg/L Invalid Interpretation Code 5.7-26.3 [facility] Comment on above: Performed By: #### 2 [id number] #### [facility] [address] [place] [address] Haptoglobinon 09-20-2024 Haptoglobin [Mass/Vol] mg/dL Low 17-317 [facility] Comment on above: Result Comment: Perf ormed at: [facility] [address] [id number] PhD Famisaiahcharmaine Prater Performed By: #### 2 [id number] #### [facility] [address] [place] [address] MELLISA and PE, Serumon 09-20-19 25 Albumin [Mass/Vol] 3.4 g/dL Invalid Interpretation Code 2.9-4.4 [facility] Comment on above: Performed By: #### 1 [id number] #### [facility] [address] [place] [address] Albumin/Globulin [Mass ratio] 1.0 {ratio} Invalid Interpretation Code 0.7-1.7 [facility] Comment on above: Performed By: #### 1 [id number] #### [facility] [address] [place] [address] Alpha 1 globulin Elph [Mass/Vol] 0.2 g/dL Invalid Interpretation Code 0.0-0.4 [facility] Comment on above: Performed By: #### 1 [id number] #### [facility] [address] [place] [address] Alpha 2 globulin Elph [Mass/Vol] 0.5 g/dL Invalid Interpretation Code 0.4-1.0 [facility] Comment on above: Performed By: #### 1 [id number] #### [facility] [address] [place] [address] Beta globulin Elph [Mass/Vol] 1.0 g/dL Invalid Interpretation Code 0.7-1.3 [facility] Comment on above: Performed By: #### 1 [id number] #### [facility] [address] [place] [address] Gamma globulin Elph [Mass/Vol] 1.9 g/dL High 0.4-1.8 [facility] Comment on above: Performed By: #### 1 [id number] #### [facility] [address] [place] [address] Globulin (S) [Mass/Vol] 3.7 g/dL Invalid Interpretation Code 2.2-3.9 [facility] Comment on above: Performed By: #### 1 [id number] #### [facility] [address] [place] [address] IgA [Mass/Vol] 653 mg/dL High 90-386 [facility] Comment on above: Performed By: #### 1 [id number] #### [facility] [address] [place] [address] IgG [Mass/Vol] 1726 mg/dL High 603-1613 [facility] Comment on above: Performed By: #### 1 [id number] #### [facility] [address] [place] [address] IgM [Mass/Vol] 72 mg/dL Invalid Interpretation Code 20-172 [facility] Comment on above: Performed By: #### 1 [id number] #### [facility] [address] [place] [address] Interpretation IEP [Interp] Comment Invalid Interpretation Code [facility] Comment on above: Result Comment: No m onoclonality detected. Performed By: #### 1 [id number] #### [facility] [address] [place] [address] Laboratory comment Parth (Report) Comment Invalid Interpretation Code [facility] Comment on above: Result Comment: Prot ein electrophoresis scan will follow via computer, mail, or glass cutter helper delivery. Performed at: [address] [id number] PhD Poncho Prater Performed By: #### 1 [id number] #### [facility] [address] [place] [address] Protein [Mass/Vol] 7.1 g/dL Invalid Interpretation Code 6.0-8.5 [facility] Comment on above: Performed By: #### 1 [id number] #### [facility] [address] [place] [address] Protein.monoclonal Elph [Mass/Vol] Not Observed Invalid Interpretation Code Not Observed [facility] Comment on above: Performed By: #### 1 [id number] #### [facility] [address] [place] [address] CBC w/ Auto Diffon 5 Basophils/100 WBC (Bld) 0.6 % Normal 0.0-2.0 [facility] Comment on above: Performed By: #### 2 [id number] #### [facility] [address] [place] [address] Basophils/Leukocytes Auto (Bld) [Pure # fraction] 0.0 E9/L Normal 0.0-0.2 [facility] Comment on above: Performed By: #### 2 [id number] #### [facility] [address] [place] [address] Eosinophils (Bld) [#/Vol] 0.2 E9/L Normal 0.0-0.5 [facility] Comment on above: Performed By: #### 2 [id number] #### [facility] [address] [place] [address] Eosinophils/100 WBC (Bld) 3.5 % Normal 0.0-8.0 [facility] Comment on above: Performed By: #### 2 [id number] #### [facility] [address] [place] [address] Erythrocyte distribution width (RBC) [Ratio] 15.1 % High 10.9-14.2 [facility] Comment on above: Performed By: #### 2 [id number] #### [facility] [address] [place] [address] Hematocrit (Bld) [Volume fraction] 38.8 % Normal 37.7-49.0 [facility] Comment on above: Performed By: #### 2 184135 #### [facility] [address] [place] [address] Hemoglobin (Bld) [Mass/Vol] 13.9 g/dL Normal 13.5-17.5 [facility] Comment on above: Performed By: #### 2 879500 #### [facility] [address] [place] [address] Lymphocytes (Bld) [#/Vol] 1.1 E9/L Normal 1.0-4.0 [facility] Comment on above: Performed By: #### 2 296721 #### [facility] [address] [place] [address] Lymphocytes/100 WBC (Bld) 25.0 % Normal 14.0-50.0 [facility] Comment on above: Performed By: #### 2 499425 #### [facility] [address] [place] [address] MCH (RBC) [Entitic mass] 37.0 pg High 27.0-34.0 [facility] Comment on above: Performed By: #### 2 [id number] #### [facility] [address] [place] [address] MCHC (RBC) [Mass/Vol] 35.8 g/dL Normal 31.4-36.0 [facility] Comment on above: Performed By: #### 2 [id number] #### [facility] [address] [place] [address] MCV (RBC) [Entitic vol] 103.5 fL High 80.0-100.0 [facility] Comment on above: Performed By: #### 2 119304 #### [facility] [address] [place] [address] Monocytes (Bld) [#/Vol] 0.4 E9/L Normal 0.2-1.0 [facility] Comment on above: Performed By: #### 2 [id number] #### [facility] [address] [place] [address] Neutrophils (Bld) [#/Vol] 2.8 E9/L Normal 2.0-7.5 [facility] Comment on above: Performed By: #### 2 895190 #### [facility] [address] [place] [address] Neutrophils/100 WBC (Bld) 62.7 % Normal 36.0-75.0 [facility] Comment on above: Performed By: #### 2 387385 #### [facility] [address] [place] [address] Platelet 93.0 E9/L Low 150.0-500.0 [facility] Comment on above: Result Comment: Tierney pheral smear review performed. Performed By: #### 2 053157 #### [facility] [address] [place] [address] Platelet mean volume (Bld) [Entitic vol] 7.7 fL Normal 6.4-10.8 [facility] Comment on above: Performed By: #### 2 [id number] #### [facility] [address] [place] [address] RBC (Bld) [#/Vol] 3.7 E12/L Low 4.3-5.9 [facility] Comment on above: Performed By: #### 2 [id number] #### [facility] [address] [place] [address] WBC corrected for nucl RBC Auto (Bld) [#/Vol] 4.5 E9/L Normal 4.0-11.0 [facility] Comment on above: Performed By: #### 2 [id number] #### [facility] [address] [place] [address] CHEMISTRYOrdered By: SYSTEM SYSTEM on 09-16-2024 Albumin [...] 09-16-2024 Albumin [Mass/Vol] 3.7 g/dL Normal 3.3-5.0 [facility] Comment on above: Performed By: #### 2 [id number] #### [facility] [address] [place] [address] Albumin/Globulin (S) [Mass conc ratio] 1.0 Low 1.1-2.2 [facility] Comment on above: Performed By: #### 2 [id number] #### [facility] [address] [place] [address] ALP [Catalytic activity/Vol] 178 Int._Unit/L High 21-98 [facility] Comment on above: Performed By: #### 2 [id number] #### [facility] [address] [place] [address] ALT No additional P-5'-P [Catalytic activity/Vol] 49 Int._Unit/L High 6-46 [facility] Comment on above: Performed By: #### 2 [id number] #### [facility] [address] [place] [address] Anion gap [Moles/Vol] 10 mmol/L Normal 6-16 [facility] Comment on above: Performed By: #### 2 144308 #### [facility] [address] [place] [address] AST [Catalytic activity/Vol] 72 Int._Unit/L High 5-43 [facility] Comment on above: Performed By: #### 2 [id number] #### [facility] [address] [place] [address] Bilirubin [Mass/Vol] 5.2 mg/dL High 0.0-1.1 [facility] Comment on above: Performed By: #### 2 568937 #### [facility] [address] [place] [address] Calcium [Mass/Vol] 9.4 mg/dL Normal 8.9-11.1 [facility] Comment on above: Performed By: #### 2 698589 #### [facility] [address] [place] [address] Chloride [Moles/Vol] 100 mmol/L Low 101-111 [facility] Comment on above: Performed By: #### 2 811988 #### [facility] [address] [place] [address] CO2 [Moles/Vol] 28 mmol/L Normal 21-31 [facility] Comment on above: Performed By: #### 2 895541 #### [facility] [address] [place] [address] Creatinine [Mass/Vol] 0.5 mg/dL Normal 0.5-1.3 [facility] Comment on above: Performed By: #### 2 179754 #### [facility] [address] [place] [address] Globulin (S) [Mass/Vol] 3.7 g/dL Normal 1.4-4.0 [facility] Comment on above: Performed By: #### 2 274528 #### [facility] [address] [place] [address] Glucose [Mass/Vol] 125 mg/dL Normal 55-199 [facility] Comment on above: Performed By: #### 2 852680 #### [facility] [address] [place] [address] Potassium [Moles/Vol] 4.1 mmol/L Normal 3.5-5.3 [facility] Comment on above: Performed By: #### 2 419668 #### [facility] [address] [place] [address] Protein [Mass/Vol] 7.4 g/dL Normal 6.0-7.8 [facility] Comment on above: Performed By: #### 2 542051 #### [facility] [address] [place] [address] Sodium [Moles/Vol] 134 mmol/L Low 135-145 [facility] Comment on above: Performed By: #### 2 370279 #### [facility] [address] [place] [address] Urea nitrogen [Mass/Vol] 9 mg/dL Normal 5-21 [facility] Comment on above: Performed By: #### 2 087943 #### [facility] [address] [place] [address] Urea nitrogen/Creatinine [Mass ratio] 18 No Units Normal 10-20 [facility] Comment on above: Performed By: #### 2 787742 #### [facility] [address] [place] [address] Ferritinon 09-16-2024 Ferritin [Mass/Vol] 343 ng/mL High 24-336 [facility] Comment on above: Performed By: #### 2 270255 #### [facility] [address] [place] [address] HEMATOLOGYOrdered By: SYSTEM SYSTEM on 09-16-2024 Basophils/100 [...] 09-16-2024 Iron [Mass/Vol] 279 microgram/dL High 35-153 [facility] Comment on above: Performed By: #### 2 812212 #### [facility] [address] [place] [address] Iron Saturationon 09-16-2024 Iron binding capacity [Mass/Vol] 294 microgram/dL Normal 250-400 [facility] Comment on above: Performed By: #### 2 968049 #### [facility] [address] [place] [address] Iron saturation [Mass fraction] 95 % High 20-50 [facility] Comment on above: Performed By: #### 2 490349 #### [facility] [address] [place] [address] LDHon 09-16-2024 LDH 278 Int._Unit/L High 93-218 [facility] Comment on above: Performed By: #### 2 785401 #### [facility] [address] [place] [address] Transferrinon 09-16-2024 Transferrin [Mass/Vol] 210 mg/dL Normal 200-370 [facility] Comment on above: Order Comment: Trans rojas order added by Discern Rule: gl_ftmc_add_iron_trans . Performed By: #### 2 [id number] #### [facility] [address] [place] [address] eGFRon 09-16-2024 eGFR 132 mL/min/1.73 m2 Normal >=59 [facility] Comment on above: Performed By: #### 1 [id number] #### [facility] [address] [place] [address] Ambulatory Visit Summaryon 1 10-20-2023 Ambulatory Visit [...] Oncology Thursday 8:15 AM EDT With: Where: [facility] Thursday 9:15 AM EDT With: Carrol MULTANI, Mario Xiong Where: [facility] [address] [place] [address] [address] [place] [address]- You Need to Complete the Following Ammonia [...] Misc Prescription (Misc DME Prescription) See instructions [place] SAP Dressing 4 x 4 dressing Contact [...] (Back Pain (more content not included)... Normal [facility] Medicine Office/Clini c Noteon 08-19-2024 Family [...] with hematology.- he has since stopped seeing [facility] Hepatology patient patient has stopped [...] Daily, # 90 tab(s), Refills(s) 3, Pharmacy: [id number], 170, cm, 04/29/24 9:16:00 EDT, Height/Length Dosing, 70.1, kg, 04/29/24 9:16:00 EDT, Weight Dosing Ammonia Level 3. Esophageal varices (I85.00: Esophageal varices without bleeding) Continue to follow with Dr. Evans, encouraged good blood pressure control, avoiding any alcohol or esophageal irritation, continue to monitor platelets for signs of bleeding 4. HTN (hypertension) (I10: Essential (primary) hypertension) Bloo (more content not included)... Normal [facility] Comment on above: Result Comment: Elec tronically Signed By: Loreta Padilla\\bryan\\Date and Time Signed: 08/19/24 17:26 EST CBC w/ Auto Diffon 4 Basophils/100 WBC (Bld) 0.9 % Normal 0.0-2.0 [facility] Comment on above: Performed By: #### 2 [id number] #### [facility] [address] [place] [address] Basophils/Leukocytes Auto (Bld) [Pure # fraction] 0.0 E9/L Normal 0.0-0.2 [facility] Comment on above: Performed By: #### 2 964410 #### [facility] [address] [place] [address] Eosinophils (Bld) [#/Vol] 0.2 E9/L Normal 0.0-0.5 [facility] Comment on above: Performed By: #### 2 406542 #### [facility] [address] [place] [address] Eosinophils/100 WBC (Bld) 3.8 % Normal 0.0-8.0 [facility] Comment on above: Performed By: #### 2 658293 #### [facility] [address] [place] [address] Erythrocyte distribution width (RBC) [Ratio] 15.7 % High 10.9-14.2 [facility] Comment on above: Performed By: #### 2 033011 #### [facility] [address] [place] [address] Hematocrit (Bld) [Volume fraction] 37.6 % Low 37.7-49.0 [facility] Comment on above: Performed By: #### 2 875557 #### [facility] [address] [place] [address] Hemoglobin (Bld) [Mass/Vol] 13.1 g/dL Low 13.5-17.5 [facility] Comment on above: Performed By: #### 2 022803 #### [facility] [address] [place] [address] Lymphocytes (Bld) [#/Vol] 1.1 E9/L Normal 1.0-4.0 [facility] Comment on above: Performed By: #### 2 206957 #### [facility] [address] [place] [address] Lymphocytes/100 WBC (Bld) 24.1 % Normal 14.0-50.0 [facility] Comment on above: Performed By: #### 2 475771 #### [facility] [address] [place] [address] MCH (RBC) [Entitic mass] 36.9 pg High 27.0-34.0 [facility] Comment on above: Performed By: #### 2 074491 #### [facility] [address] [place] [address] MCHC (RBC) [Mass/Vol] 34.9 g/dL Normal 31.4-36.0 [facility] Comment on above: Performed By: #### 2 446646 #### [facility] [address] [place] [address] MCV (RBC) [Entitic vol] 105.7 fL High 80.0-100.0 [facility] Comment on above: Performed By: #### 2 432204 #### [facility] [address] [place] [address] Monocytes (Bld) [#/Vol] 0.5 E9/L Normal 0.2-1.0 [facility] Comment on above: Performed By: #### 2 403240 #### [facility] [address] [place] [address] Neutrophils (Bld) [#/Vol] 2.8 E9/L Normal 2.0-7.5 [facility] Comment on above: Performed By: #### 2 077779 #### [facility] [address] [place] [address] Neutrophils/100 WBC (Bld) 60.0 % Normal 36.0-75.0 [facility] Comment on above: Performed By: #### 2 929341 #### [facility] [address] [place] [address] Platelet mean volume (Bld) [Entitic vol] 8.8 fL Normal 6.4-10.8 [facility] Comment on above: Performed By: #### 2 114222 #### [facility] [address] [place] [address] Platelets (Bld) [#/Vol] 70.0 E9/L Low 150.0-500.0 [facility] Comment on above: Result Comment: Tierney pheral smear review performed. Performed By: #### 2 388875 #### [facility] [address] [place] [address] RBC (Bld) [#/Vol] 3.6 E12/L Low 4.3-5.9 [facility] Comment on above: Performed By: #### 2 600178 #### [facility] [address] [place] [address] WBC corrected for nucl RBC Auto (Bld) [#/Vol] 4.7 E9/L Normal 4.0-11.0 [facility] Comment on above: Performed By: #### 2 953515 #### [facility] [address] [place] [address] CHEMISTRYOrdered By: SYSTEM SYSTEM on 08-11-2024 Albumin [...] Erythropoietin (EPO) Qn 26.3 mIU/mL High 2.6-18.5 [facility] Comment on above: Result Comment: [employer] DxI 800 Immunoassay System Values obtained with different assay methods or kits cannot be used interchangeably. Results cannot be interpreted as absolute evidence of the presence or absence of malignant disease. Performed at: [facility] [address], [place] [id number] PhD Poncho Prater Performed By: #### 1 [id number] #### [facility] [address] [place] [address] Haptoglobinon 07-11-2024 Haptoglobin [Mass/Vol] mg/dL Low 17-317 [facility] Comment on above: Result Comment: Perf ormed at: [facility] [address], [place] [id number] PhD Poncho Prater Performed By: #### 2 167611 #### [facility] [address] [place] [address] ABSCon 07-09-2024 ABSC Gel Interp Negative Normal [facility] Comment on above: Performed By: #### 1 [id number] #### [facility] [address] [place] [address] BLOOD BANKOrdered By: Maria Isabel bain on 07-09-2024 ABSC Gel Interp Negative (07/09/24 8:29 AM) Normal FT BB Subsection AYLIN IgG/C3d Tube Negative (07/09/24 8:29 AM) Normal FT BB Subsection CBC w/ Auto Diffon 4 Basophils/100 WBC (Bld) 0.8 % Normal 0.0-2.0 [facility] Comment on above: Performed By: #### 2 724449 #### [facility] [address] [place] [address] Basophils/Leukocytes Auto (Bld) [Pure # fraction] 0.0 E9/L Normal 0.0-0.2 [facility] Comment on above: Performed By: #### 2 856298 #### [facility] [address] [place] [address] Eosinophils (Bld) [#/Vol] 0.2 E9/L Normal 0.0-0.5 [facility] Comment on above: Performed By: #### 2 494362 #### [facility] [address] [place] [address] Eosinophils/100 WBC (Bld) 5.8 % Normal 0.0-8.0 [facility] Comment on above: Performed By: #### 2 897878 #### [facility] [address] [place] [address] Erythrocyte distribution width (RBC) [Ratio] 15.1 % High 10.9-14.2 [facility] Comment on above: Performed By: #### 2 007456 #### [facility] [address] [place] [address] Hematocrit (Bld) [Volume fraction] 36.8 % Low 37.7-49.0 [facility] Comment on above: Performed By: #### 2 636754 #### [facility] [address] [place] [address] Hemoglobin (Bld) [Mass/Vol] 12.7 g/dL Low 13.5-17.5 [facility] Comment on above: Performed By: #### 2 948896 #### [facility] [address] [place] [address] Lymphocytes (Bld) [#/Vol] 0.9 E9/L Low 1.0-4.0 [facility] Comment on above: Performed By: #### 2 889008 #### [facility] [address] [place] [address] Lymphocytes/100 WBC (Bld) 23.1 % Normal 14.0-50.0 [facility] Comment on above: Performed By: #### 2 064713 #### [facility] [address] [place] [address] MCH (RBC) [Entitic mass] 36.7 pg High 27.0-34.0 [facility] Comment on above: Performed By: #### 2 599018 #### [facility] [address] [place] [address] MCHC (RBC) [Mass/Vol] 34.5 g/dL Normal 31.4-36.0 [facility] Comment on above: Performed By: #### 2 334035 #### [facility] [address] [place] [address] MCV (RBC) [Entitic vol] 106.4 fL High 80.0-100.0 [facility] Comment on above: Performed By: #### 2 667505 #### [facility] [address] [place] [address] Monocytes (Bld) [#/Vol] 0.5 E9/L Normal 0.2-1.0 [facility] Comment on above: Performed By: #### 2 813630 #### [facility] [address] [place] [address] Neutrophils (Bld) [#/Vol] 2.1 E9/L Normal 2.0-7.5 [facility] Comment on above: Performed By: #### 2 743144 #### [facility] [address] [place] [address] Neutrophils/100 WBC (Bld) 57.0 % Normal 36.0-75.0 [facility] Comment on above: Performed By: #### 2 276801 #### [facility] [address] [place] [address] Platelet mean volume (Bld) [Entitic vol] 9.5 fL Normal 6.4-10.8 [facility] Comment on above: Performed By: #### 2 082074 #### [facility] [address] [place] [address] Platelets (Bld) [#/Vol] 67.0 E9/L Low 150.0-500.0 [facility] Comment on above: Result Comment: Tierney pheral smear review performed. Performed By: #### 2 703423 #### [facility] [address] [place] [address] RBC (Bld) [#/Vol] 3.5 E12/L Low 4.3-5.9 [facility] Comment on above: Performed By: #### 2 611782 #### [facility] [address] [place] [address] WBC corrected for nucl RBC Auto (Bld) [#/Vol] 3.7 E9/L Low 4.0-11.0 [facility] Comment on above: Performed By: #### 2 490762 #### [facility] [address] [place] [address] CHEMISTRYOrdered By: SYSTEM SYSTEM on 07-09-2024 Albumin [...] 07-09-2024 Albumin [Mass/Vol] 3.1 g/dL Low 3.3-5.0 [facility] Comment on above: Performed By: #### 2 303657 #### [facility] [address] [place] [address] Albumin/Globulin (S) [Mass conc ratio] 0.9 Low 1.1-2.2 [facility] Comment on above: Performed By: #### 2 774156 #### [facility] [address] [place] [address] ALP [Catalytic activity/Vol] 192 Int._Unit/L High 21-98 [facility] Comment on above: Performed By: #### 2 226285 #### [facility] [address] [place] [address] ALT No additional P-5'-P [Catalytic activity/Vol] 33 Int._Unit/L Normal 6-46 [facility] Comment on above: Performed By: #### 2 717371 #### [facility] [address] [place] [address] Anion gap [Moles/Vol] 7 mmol/L Normal 6-16 [facility] Comment on above: Performed By: #### 2 483581 #### [facility] [address] [place] [address] AST [Catalytic activity/Vol] 56 Int._Unit/L High 5-43 [facility] Comment on above: Performed By: #### 2 834607 #### [facility] [address] [place] [address] Bilirubin [Mass/Vol] 3.1 mg/dL High 0.0-1.1 [facility] Comment on above: Performed By: #### 2 781352 #### [facility] [address] [place] [address] Calcium [Mass/Vol] 8.2 mg/dL Low 8.9-11.1 [facility] Comment on above: Performed By: #### 2 876827 #### [facility] [address] [place] [address] Chloride [Moles/Vol] 105 mmol/L Normal 101-111 [facility] Comment on above: Performed By: #### 2 718685 #### [facility] [address] [place] [address] CO2 [Moles/Vol] 26 mmol/L Normal 21-31 [facility] Comment on above: Performed By: #### 2 171307 #### [facility] [address] [place] [address] Creatinine [Mass/Vol] 0.5 mg/dL Normal 0.5-1.3 [facility] Comment on above: Performed By: #### 2 804013 #### [facility] [address] [place] [address] Globulin (S) [Mass/Vol] 3.5 g/dL Normal 1.4-4.0 [facility] Comment on above: Performed By: #### 2 056536 #### [facility] [address] [place] [address] Glucose [Mass/Vol] 171 mg/dL Normal 55-199 [facility] Comment on above: Performed By: #### 2 427432 #### [facility] [address] [place] [address] Potassium [Moles/Vol] 4.0 mmol/L Normal 3.5-5.3 [facility] Comment on above: Performed By: #### 2 264608 #### [facility] [address] [place] [address] Protein [Mass/Vol] 6.6 g/dL Normal 6.0-7.8 [facility] Comment on above: Performed By: #### 2 207269 #### [facility] [address] [place] [address] Sodium [Moles/Vol] 134 mmol/L Low 135-145 [facility] Comment on above: Performed By: #### 2 397844 #### [facility] [address] [place] [address] Urea nitrogen [Mass/Vol] 10 mg/dL Normal 5-21 [facility] Comment on above: Performed By: #### 2 194185 #### [facility] [address] [place] [address] Urea nitrogen/Creatinine [Mass ratio] 20 No Units Normal 10-20 [facility] Comment on above: Performed By: #### 2 037259 #### [facility] [address] [place] [address] AYLIN IgG/C3d.on 07-09-2024 AYLIN IgG/C3d Tube Negative Normal [facility] Comment on above: Performed By: #### 8 [id number] #### [facility] [address] [place] [address] Ferritinon 07-09-2024 Ferritin [Mass/Vol] 272 ng/mL Normal 24-336 [facility] Comment on above: Performed By: #### 2 398246 #### [facility] [address] [place] [address] HEMATOLOGYOrdered By: SYSTEM SYSTEM on 07-09-2024 Basophils/100 [...] 07-09-2024 Iron [Mass/Vol] 212 microgram/dL High 35-153 [facility] Comment on above: Performed By: #### 2 123932 #### [facility] [address] [place] [address] Iron Saturationon 07-09-2024 Iron binding capacity [Mass/Vol] 246 microgram/dL Low 250-400 [facility] Comment on above: Performed By: #### 2 385233 #### [facility] [address] [place] [address] Iron saturation [Mass fraction] 86 % High 20-50 [facility] Comment on above: Performed By: #### 2 835330 #### [facility] [address] [place] [address] LDHon 07-09-2024 LDH 226 Int._Unit/L High 93-218 [facility] Comment on above: Performed By: #### 2 648335 #### [facility] [address] [place] [address] Retic Counton 07-09-2024 Reticulocytes/100 RBC (Bld) 1.9 % Normal 0.5-2.2 [facility] Comment on above: Performed By: #### 2 345126 #### [facility] [address] [place] [address] Transferrinon 07-09-2024 Transferrin [Mass/Vol] 176 mg/dL Low 200-370 [facility] Comment on above: Performed By: #### 2 637315 #### [facility] [address] [place] [address] eGFRon 07-09-2024 eGFR 132 mL/min/1.73 m2 Normal >=59 [facility] Comment on above: Performed By: #### 1 [id number] #### [facility] [address] [place] [address] Ambulatory Visit Summaryon 1 Ambulatory Visit Summary [...] 5 mg Tab) potassium chloride (Potassium Chloride (Khn-Wkkj-Mbx M20) 20 mEq oral tablet, extended release) [...] PM EST With: Loreta Padilla Where: [facility] [address] [place] [address]- Thursday 9:15 AM EDT With: Carrol MULTANI, Mario Xiong Where: [facility] [address] [place] [address]- Medications What How Much When Why Instructions New carvedilol (Coreg 6.25 mg Tab) 1 Tablets By Mouth 2 times a day Refills: 3 Pickup at [facility] Unchanged bifidobacterium-lactoba cillus (bifidobacterium-lactob acillus oral [...] Misc Prescription (Misc DME Prescription) See instructions [place] SAP Dressing 4 x 4 dressing Contact [...] or concerns Unchanged potassium chloride (Potassium Chloride (Zgo-Orgg-Pxt M20) 20 mEq oral tablet, extended release) 1 Tablets By Mouth 2 times a day Contact prescribing physician if questions or concerns Unchanged spironolactone (spironolactone 50 mg Tab) 1 Tablets By Mouth Every day Contact prescribing physician if questions o (more content not included)... Normal [facility] Gastroenterology Office/Clin ic Noteon 06-09-2024 Gastroenterology Office/Clinic Note Gastroenterology Office/Clinic Note Chief Complaint Cirrhosis follow up HPI Staff Patient is a(n) year old male who presents today for a(n) 1 month follow-up. US/labs ordered for 11/2024. Recieved liver bx report from [facility], placed in chart. Need to review bx, US and labs to determine transplant status. Denies blood thinners. Denies GLP-1 agonists. Last visit 05/12/24 w/Dr. Evans: Assessment/Plan 1. Liver cirrhosis, alcoholic (K70.30: Alcoholic cirrhosis of liver without ascites) Sober for more than 2.5 years Liver biopsy was done at [facility], gradient was 14 mmHg Liver [...] fL High (05/24/24) Chloride: 102 mmol/L (05/24/24) [place] Absolute: 0.6 E9/L (05/24/24) CO2: 25 mmol/L (05/24/24) [place] Auto: 9.6 % (05/24/24) Creatinine: 0.5 mg/dL [...] 2.5 years Liver biopsy was done at [facility], gradient was 14 mmHg Liver biopsy report is reported steatosis and cirrhosis a (more content not included)... Normal [facility] Comment on above: Result Comment: Elec tronically Signed By: Carrol MULTANI, Mario Xiong\\.br\\Date and Time Signed: 06/09/24 14:42 EDT US [...] MD Transcribed by: 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 Razo [facility] .Interpretation:on HCV Ab IA Ql Comment Invalid Interpretation Code [facility] Comment on above: Result Comment: Not infected with HCV unless early or acute infection is suspected (which may be delayed in an immunocompromised individual), or other evidence exists to indicate HCV infection. Performed at: [facility] [address] [place], [place] [id number] PhD Poncho Prater Performed By: #### 2 [id number] #### [facility] [address] [place] [address] AFPon 05-25-2024 AFP.tumor marker [Mass/Vol] 4.1 ng/mL Invalid Interpretation Code 0.0-6.9 [facility] Comment on above: Result Comment: [employer] Electrochemiluminescence Immunoassay (ECLIA) Values obtained with different assay methods or kits cannot be used interchangeably. Results cannot be interpreted as absolute evidence of the presence or absence of malignant disease. This test is not interpretable in females. Performed at: [employer] [id number] PhD Poncho Prater Performed By: #### 2 [id number] #### [facility] [address] [place] [address] AMA Ab Scron 05-25-2024 Mitochondria M2 IgG Qn (S) <20.0 Invalid Interpretation Code 0.0-20.0 [facility] Comment on above: Result Comment: Nega tive 0.0 - 20.0 Equivocal 20.1 - 24.9 Positive >24.9 Mitochondrial (M2) Antibodies are found in 90-96% of patients with primary biliary cirrhosis. Performed at: [address] [id number] PhD Poncho Prater Performed By: #### 1 [id number] #### [facility] [address] [place] [address] GEOVANNA w/Reflex if POSon 2023 Nuclear Ab Ql (S) Negative Invalid Interpretation Code Negative [facility] Comment on above: Result Comment: Perf ormed at: [address] [id number] PhD Poncho Prater Performed By: #### 1 [id number] #### [facility] [address] [place] [address] Nuclear Ab Ql (S) Negative Invalid Interpretation Code Negative [facility] Comment on above: Result Comment: Perf ormed at: [address] [id number] PhD Poncho Prater Performed By: #### 1 [id number] #### [facility] [address] [place] [address] Acute Hepatitis A B C Panelo n 05-25-2024 HAV IgM IA Ql Negative Invalid Interpretation Code Negative [facility] Comment on above: Result Comment: A ne gative anti-HAV IgM result suggests no recent or current HAV infection. Performed By: #### 3 [id number] #### [facility] [address] [place] [address] HBV core IgM IA Ql Negative Invalid Interpretation Code Negative [facility] Comment on above: Performed By: #### 3 [id number] #### [facility] [address] [place] [address] HBV surface Ag IA Ql Negative Invalid Interpretation Code Negative [facility] Comment on above: Performed By: #### 3 [id number] #### [facility] [address] [place] [address] HCV IgG IA Ql Non-Reactive Invalid Interpretation Code Non Reactive [facility] Comment on above: Result Comment: Perf ormed at: [address] [id number] PhD Poncho Prater Performed By: #### 3 [id number] #### [facility] [address] [place] [address] Alpha 1 Antitrpon 05-25-2024 Alpha 1 antitrypsin [Mass/Vol] 153 mg/dL Invalid Interpretation Code 95-164 [facility] Comment on above: Result Comment: Perf ormed at: [address] [id number] PhD Poncho Prater Performed By: #### 1 [id number] #### [facility] [address] [place] [address] Alpha 1 antitrypsin [Mass/Vol] 159 mg/dL Invalid Interpretation Code 95-164 [facility] Comment on above: Result Comment: Perf ormed at: [address] [id number] PhD Poncho Prater Performed By: #### 1 [id number] #### [facility] [address] [place] [address] Ceruloplasminon 05-25-2024 Ceruloplasmin [Mass/Vol] 18.6 mg/dL Invalid Interpretation Code 16.0-31.0 [facility] Comment on above: Result Comment: Perf ormed at: [address] [id number] PhD Poncho Prater Performed By: #### 1 [id number] #### [facility] [address] [place] [address] Ceruloplasmin [Mass/Vol] 19.9 mg/dL Invalid Interpretation Code 16.0-31.0 [facility] Comment on above: Result Comment: Perf ormed at: [address] [id number] PhD Ottoricharmaine Prater Performed By: #### 1 [id number] #### [facility] [address] [place] [address] Hep Bs Abon 05-25-2024 HBV surface Ab Ql (S) Non-Reactive Invalid Interpretation Code [facility] Comment on above: Result Comment: Non Reactive: Not immune to HBV infection. Equivocal: Unable to determine if anti-HBs is present at levels consistent with immunity. Reactive: Anti-HBs concentration detected at greater than 10 mIU/mL. Individual is considered to be immune to infection with HBV. Performed at: [address] [id number] [facility] Famricharmaine Prater Performed By: #### 2 [id number] #### [facility] [address] [place] [address] Hepatitis A Virus (HAV) Anti body, Totalon 05-25-2024 HAV Ab IA Ql (S) Negative Invalid Interpretation Code Negative [facility] Comment on above: Result Comment: Comm ent: The HAV total antibody assay detects both IgG and IgM but does not differentiate between them. A negative result suggests susceptibility to infection. A positive result could be due to vaccination, previously resolved infection or active infection. Testing for HAV IgM should be performed if active HAV infection is suspected. [employer] offers profiles that will automatically reflex positive HAV total antibody results to IgM (e.g., panel #[id number] HAV Antibody w/ Rfx). Performed at: [address] [id number] PhD Ottoricharmaine Prater Performed By: #### 1 [id number] #### [facility] [address] [place] [address] IgG, Quant.on 05-25-2024 IgG [Mass/Vol] 1784 mg/dL High 603-1613 [facility] Comment on above: Result Comment: Perf ormed at: [address] [id number] PhD Poncho Prater Performed By: #### 1 [id number] #### [facility] [address] [place] [address] Smooth Muscle Abon 4 Actin smooth muscle IgG Qn (S) 18 unit(s) Invalid Interpretation Code 0-19 [facility] Comment on above: Result Comment: Nega tive 0 - 19 Weak positive 20 - 30 Moderate to strong positive >30 Actin Antibodies are found in 52-85% of patients with autoimmune hepatitis or chronic active hepatitis and in 22% of patients with primary biliary cirrhosis. Performed at: [address] [id number] PhD Poncho Prater Performed By: #### 1 [id number] #### [facility] [address] [place] [address] Bili Directon 05-24-2024 Bilirubin.direct [Mass/Vol] 1.1 mg/dL High 0.0-0.4 [facility] Comment on above: Performed By: #### 2 [id number] #### [facility] [address] [place] [address] CBC w/ Auto Diffon 4 Basophils/100 WBC (Bld) 0.8 % Normal 0.0-2.0 [facility] Comment on above: Performed By: #### 2 [id number] #### [facility] [address] [place] [address] Basophils/Leukocytes Auto (Bld) [Pure # fraction] 0.0 E9/L Normal 0.0-0.2 [facility] Comment on above: Performed By: #### 2 [id number] #### [facility] [address] [place] [address] Eosinophils (Bld) [#/Vol] 0.2 E9/L Normal 0.0-0.5 [facility] Comment on above: Performed By: #### 2 [id number] #### [facility] [address] [place] [address] Eosinophils/100 WBC (Bld) 3.4 % Normal 0.0-8.0 [facility] Comment on above: Performed By: #### 2 [id number] #### [facility] [address] [place] [address] Erythrocyte distribution width (RBC) [Ratio] 16.9 % High 10.9-14.2 [facility] Comment on above: Performed By: #### 2 [id number] #### [facility] [address] [place] [address] Hematocrit (Bld) [Volume fraction] 35.2 % Low 37.7-49.0 [facility] Comment on above: Performed By: #### 2 [id number] #### [facility] [address] [place] [address] Hemoglobin (Bld) [Mass/Vol] 12.1 g/dL Low 13.5-17.5 [facility] Comment on above: Performed By: #### 2 [id number] #### [facility] [address] [place] [address] Lymphocytes (Bld) [#/Vol] 1.0 E9/L Normal 1.0-4.0 [facility] Comment on above: Performed By: #### 2 [id number] #### [facility] [address] [place] [address] Lymphocytes/100 WBC (Bld) 16.1 % Normal 14.0-50.0 [facility] Comment on above: Performed By: #### 2 [id number] #### [facility] [address] [place] [address] MCH (RBC) [Entitic mass] 36.0 pg High 27.0-34.0 [facility] Comment on above: Performed By: #### 2 [id number] #### [facility] [address] [place] [address] MCHC (RBC) [Mass/Vol] 34.3 g/dL Normal 31.4-36.0 [facility] Comment on above: Performed By: #### 2 [id number] #### [facility] [address] [place] [address] MCV (RBC) [Entitic vol] 104.9 fL High 80.0-100.0 [facility] Comment on above: Performed By: #### 2 [id number] #### [facility] [address] [place] [address] Monocytes (Bld) [#/Vol] 0.6 E9/L Normal 0.2-1.0 [facility] Comment on above: Performed By: #### 2 802141 #### [facility] [address] [place] [address] Neutrophils (Bld) [#/Vol] 4.2 E9/L Normal 2.0-7.5 [facility] Comment on above: Performed By: #### 2 237274 #### [facility] [address] [place] [address] Neutrophils/100 WBC (Bld) 70.1 % Normal 36.0-75.0 [facility] Comment on above: Performed By: #### 2 652087 #### [facility] [address] [place] [address] Platelet mean volume (Bld) [Entitic vol] 9.0 fL Normal 6.4-10.8 [facility] Comment on above: Performed By: #### 2 [id number] #### [facility] [address] [place] [address] Platelets (Bld) [#/Vol] 81.0 E9/L Low 150.0-500.0 [facility] Comment on above: Result Comment: Tierney pheral smear review performed. Performed By: #### 2 [id number] #### [facility] [address] [place] [address] RBC (Bld) [#/Vol] 3.4 E12/L Low 4.3-5.9 [facility] Comment on above: Performed By: #### 2 730436 #### [facility] [address] [place] [address] WBC corrected for nucl RBC Auto (Bld) [#/Vol] 6.0 E9/L Normal 4.0-11.0 [facility] Comment on above: Performed By: #### 2 942774 #### [facility] [address] [place] [address] CHEMISTRYOrdered By: SYSTEM SYSTEM on 05-24-2024 Albumin [...] 05-24-2024 Albumin [Mass/Vol] 3.5 g/dL Normal 3.3-5.0 [facility] Comment on above: Performed By: #### 2 [id number] #### [facility] [address] [place] [address] Albumin/Globulin (S) [Mass conc ratio] 0.9 Low 1.1-2.2 [facility] Comment on above: Performed By: #### 2 [id number] #### [facility] [address] [place] [address] ALP [Catalytic activity/Vol] 219 Int._Unit/L High 21- [facility] Comment on above: Performed By: #### 2 [id number] #### [facility] [address] [place] [address] ALT No additional P-5'-P [Catalytic activity/Vol] 57 Int._Unit/L High 6-46 [facility] Comment on above: Performed By: #### 2 [id number] #### [facility] [address] [place] [address] Anion gap [Moles/Vol] 10 mmol/L Normal 6-16 [facility] Comment on above: Performed By: #### 2 [id number] #### [facility] [address] [place] [address] AST [Catalytic activity/Vol] 96 Int._Unit/L High 5-43 [facility] Comment on above: Performed By: #### 2 066832 #### [facility] [address] [place] [address] Bilirubin [Mass/Vol] 5.3 mg/dL High 0.0-1.1 [facility] Comment on above: Performed By: #### 2 046860 #### [facility] [address] [place] [address] Calcium [Mass/Vol] 9.0 mg/dL Normal 8.9-11.1 [facility] Comment on above: Performed By: #### 2 108708 #### [facility] [address] [place] [address] Chloride [Moles/Vol] 102 mmol/L Normal 101-111 [facility] Comment on above: Performed By: #### 2 942241 #### [facility] [address] [place] [address] CO2 [Moles/Vol] 25 mmol/L Normal 21-31 [facility] Comment on above: Performed By: #### 2 702116 #### [facility] [address] [place] [address] Creatinine [Mass/Vol] 0.5 mg/dL Normal 0.5-1.3 [facility] Comment on above: Performed By: #### 2 436086 #### [facility] [address] [place] [address] Globulin (S) [Mass/Vol] 3.9 g/dL Normal 1.4-4.0 [facility] Comment on above: Performed By: #### 2 363617 #### [facility] [address] [place] [address] Glucose [Mass/Vol] 100 mg/dL Normal 55-199 [facility] Comment on above: Performed By: #### 2 643295 #### [facility] [address] [place] [address] Potassium [Moles/Vol] 4.0 mmol/L Normal 3.5-5.3 [facility] Comment on above: Performed By: #### 2 857931 #### [facility] [address] [place] [address] Protein [Mass/Vol] 7.4 g/dL Normal 6.0-7.8 [facility] Comment on above: Performed By: #### 2 [id number] #### [facility] [address] [place] [address] Sodium [Moles/Vol] 133 mmol/L Low 135-145 [facility] Comment on above: Performed By: #### 2 459079 #### [facility] [address] [place] [address] Urea nitrogen [Mass/Vol] 8 mg/dL Normal 5-21 [facility] Comment on above: Performed By: #### 2 740843 #### [facility] [address] [place] [address] Urea nitrogen/Creatinine [Mass ratio] 16 No Units Normal 10-20 [facility] Comment on above: Performed By: #### 2 907562 #### [facility] [address] [place] [address] COAGULATIONOrdered By: Maria Isabel Chavira on 05-24-2024 aPTT Coag (PPP) [Time] 42.5 s High 25.1 - 36.5 second(s) [facility] Comment on above: Interpretive Data: [...] coagulation reagent and instrumentation as [facility]. Currently there are no coagulation studies available worldwide for children to 14 days, and no normal ranges. Heparin therapeutic range (represented by Anti-Factor Xa activity of 0.2 - 0.4 U/mL) corresponds to PTT of 56.6 - 109.0 sec. INR Coag (PPP) [Relative time] 1.52 {INR} Invalid Interpretation Code [facility] Comment on above: Interpretive Data: I NR results are specifically intended to assess patients stabilized on long-term Anticoagulation therapy suggested INR s Less Intensive Anticoagulation 2.0 3.0 Conventional Range 3.0 4.5 PT Coag (PPP) [Time] 17.1 s High 9.4 - 1 2.5 second(s) [facility] Comment on above: Interpretive Data: [...] coagulation reagent and instrumentation as [facility]. Currently there are no coagulation studies available worldwide for children to 14 days, and no normal ranges. Ferritinon 05-24-2024 Ferritin [Mass/Vol] 401 ng/mL High 24-336 [facility] Comment on above: Performed By: #### 2 [id number] #### [facility] [address] [place] [address] HEMATOLOGYOrdered By: SYSTEM SYSTEM on 05-24-2024 Basophils/100 [...] [facility] Comment on above: Result Comment: Tiereny pheral smear review performed. RBC (Bld) [#/Vol] 3.4 E12/L Low 4.3 - 5.9 E12/L Re misol Heme WBC corrected for nucl RBC Auto (Bld) [#/Vol] 6.0 E9/L Normal 4.0 - 11.0 E9/L Remisol Heme Ironon 05-24-2024 Iron [Mass/Vol] 268 microgram/dL High 35-153 [facility] Comment on above: Performed By: #### 2 [id number] #### [facility] [address] [place] [address] PT & PTTon 05-24-2024 aPTT Coag (PPP) [Time] 42.5 second(s) High 25.1-36.5 [facility] Comment on above: Result Comment: Para meter [...] coagulation reagent and instrumentation as [facility] Currently there are no coagulation studies available worldwide for children to 14 days, and no normal ranges. Heparin therapeutic range (represented by Anti-Factor Xa activity of 0.2 - 0.4 U/mL) corresponds to PTT of 56.6 - 109.0 sec. Performed By: #### 1 [id number] #### [facility] [address] [place] [address] INR Coag (PPP) [Relative time] 1.52 {INR} Invalid Interpretation Code [facility] Comment on above: Result Comment: INR results are specifically intended to assess patients stabilized on long-term Anticoagulation therapy suggested INR?s ?Less Intensive Anticoagulation? 2.0 ? 3.0 Conventional Range 3.0 ? 4.5 Performed By: #### 1 [id number] #### [facility] [address] [place] [address] PT Coag (PPP) [Time] 17.1 second(s) High 9.4-12.5 [facility] Comment on above: Result Comment: 15 d [...] coagulation reagent and instrumentation as [facility] Currently there are no coagulation studies available worldwide for children to 14 days, and no normal ranges. Performed By: #### 1 [id number] #### [facility] [address] [place] [address] TIBC Calculatedon 05-24-2024 Iron binding capacity [Mass/Vol] 265 microgram/dL Normal 250-400 [facility] Comment on above: Performed By: #### 1 [id number] #### [facility] [address] [place] [address] Transferrin [Mass/Vol] 189 mg/dL Low 200-370 [facility] Comment on above: Performed By: #### 1 [id number] #### [facility] [address] [place] [address] eGFRon 05-24-2024 eGFR 132 mL/min/1.73 m2 Normal >=59 [facility] Comment on above: Order Comment: Order added by Discern Expert. Performed By: #### 1 [id number] #### [facility] [address] [place] [address] Ambulatory Visit Summaryon 0 05-12-2024 Ambulatory Visit [...] 5 mg Tab) potassium chloride (Potassium Chloride (Mxa-Gqax-Byw M20) 20 mEq oral tablet, extended release) [...] With: Carrol MULTANI, Mario Xiong Where: [facility] [address] [facility] [address] [place] [address]- 2023 2:40 PM EST With: Kavon Lu DO Where: Oncology Thursday 3:00 PM EST With: Loreta Padilla Where: [facility] [address], [place] [address]- You Need to Complete the Following Alpha Fetoprotein Tumor Marker, Blood, Routine collect, 05/12/24, Order for future visit, Lab Collect, Alcoholic cirrhosis, Print Label By Order Location [id number], Blood, Routine collect, 05/12/24, Order for future [...] [place] (more content not included)... Normal [facility] Gastroenterology Office/Clin ic Noteon 05-12-2024 Gastroenterology Office/Clinic Note Gastroenterology Office/Clinic Note HPI Staff Patient is a(n) 38 year old male who presents today for a(n) 6 month follow-up. Was referred to [facility] 12/4023 for possible cholecystectomy d/t high risk. Denies blood thinners/GLP-1 agonists. Last visit 09/01/23 w/Dr. Evans: Assessment/Plan 1. Alcohol use disorder in remission (F10.91: Alcohol use, unspecified, in remission) Diagnosed few years ago, was actively drinking, he quit then He had a biopsy done at [facility] in January 2023, he had [...] due, last one was around January and [facility] report not available - Transplant [...] fL High (05/06/24) Chloride: 101 mmol/L (05/06/24) [place] Absolute: 0.4 E9/L (05/06/24) CO2: 26 mmol/L (05/06/24) [place] Auto: 11 % (05/06/24) Creatinine: 0.5 mg/dL [...] 2.5 years Liver biopsy was done at [facility], gradient was 14 mmHg Liver [...] remission (F10. (more content not included)... Normal [facility] Comment on above: Result Comment: Elec tronically Signed By: Carrol MULTANI, Mario Xiong\\.br\\Date and Time Signed: 05/12/24 16:02 EDT Haptoglobinon 05-08-2024 Haptoglobin [Mass/Vol] mg/dL Low 17-317 [facility] Comment on above: Result Comment: Perf ormed at: [facility] [address] [id number] PhD Poncho Prater Performed By: #### 2 [id number] #### [facility] [address] [place] [address] CHEMISTRYOrdered By: SYSTEM SYSTEM on 05-06-2024 Albumin [...] Reticulocytes/100 RBC (Bld) 2.4 % High 0.5-2.2 [facility] Comment on above: Performed By: #### 2 [id number] #### [facility] [address] [place] [address] Ambulatory Visit Summaryon 0 04-29-2024 Ambulatory Visit [...] 5 mg Tab) potassium chloride (Potassium Chloride (Xgc-Kzlx-Xup M20) 20 mEq oral tablet, extended release) [...] With: Carrol MULTANI, Mario Xiong Where: [facility] [address] [address]- Medications What How Much When Why Instructions New bifidobacterium-lactoba cillus (bifidobacterium-lactob acillus oral tablet) 1 Tablets By Mouth Every day Pickup at [id number] New promethazine (promethazine 25 mg Tab) 1 Tablets By Mouth Every 6 hours as needed for for nausea/vomiting Pickup at [facility] #[id number] Changed furosemide (furosemide 20 mg Tab) 1 Tablets By Mouth Every day Cirrhosis Dependent edema Pickup at [facility] #[id number] Unchanged cholecalciferol (cholecalciferol 50,000 intl units oral [...] Misc Prescription (Misc DME Prescription) See instructions [place] SAP Dressing 4 x 4 dressing Contact [...] or concerns Unchanged potassium chloride (Potassium Chloride (Hes-Ibjc-Xgl M20) 20 mEq oral tablet, extended release) 1 Tablets By Mouth 2 times a day Contact prescribing physician if questions or concerns Unchanged spironolactone (spironolac (more content not included)... Normal [facility] Medicine Office/Clini c Noteon 04-29-2024 Family [...] Present Illness Patient was recently hospitalized at [facility] with right leg cellulitis and UTI, [...] left - bruising noted after cath in [place], patient report he went to [place] to have Dr Bertrand said everything looked [...] 08:41 AM BP: 148/85 mmHg Patient Location: [facility] : 1985 Gender: Male Height: 67 in Age: 38 yrs Ethnicity: WHT Weight: 150 lb Reason For Study: Chest pain BSA: 1.8 m2 History: HTN,Murmur,Alcohol use Ordering Physician: John^Loerta^Nadia Referring Physician: Loreta Cummings Performed By: Chloe [...] Date: 12/11/19 (more content not included)... Normal [facility] Comment on above: Result Comment: Elec tronically Signed By: Loreta Padilla\\.br\\Date and Time Signed: 04/29/24 10:26 EDT POC BUN CREATon 04-26-2024 Creatinine [Mass/Vol] 0.5 mg/dL Low 0.7-1.2 [facility] Comment on above: Result Comment: METH OD TRACEABLE TO IDMS STANDARD Performed By: #### I BC #### [facility] ([id number]) [address] [place] [address] eGFR (CKD-EPI) NON-RACE DEPENDENT >90 Normal >59 [facility] Comment on above: Result Comment: Reported eGFR is based on the CKD-EPI 2020 equation that does not use a race coefficient. Performed By: #### I BC #### [facility] ([id number]) [address] [place] [address] Urea nitrogen [Mass/Vol] 9 mg/dL Normal 6-23 [facility] Comment on above: Performed By: #### I BC #### [facility] ([id number]) [address] [place] [address] [facility] 04-18-20 [facility] Case Information Case Priority: None Programs: -- Referral Source: Bung Sewer Referral Reason: Care coordination Case Type: Transition [...] 0.5 tab, Oral, q6hr, PRN Potassium Chloride (Xro-Lqmq-Bxu M20) 20 mEq oral tablet, extended release, [...] summary note. Created By: Nasrin Greene RN [facility] 04-05-20 [facility] Case Information Case Priority: None Programs: -- Referral Source: Bung Sewer Referral Reason: Care coordination Case Type: Transition [...] 0.5 tab, Oral, q6hr, PRN Potassium Chloride (Vue-Ywae-Lpv M20) 20 mEq oral tablet, extended release, [...] note. Created By: Jc GREER, Nasrin Zuniga [facility] V[facility] Noteon 03-17-2024 Heart and Vascular Office/Clinic [...] 08:41 AM BP: 148/85 mmHg Patient Location: [facility] : 1985 Gender: Male Height: 67 in Age: 38 yrs Ethnicity: T Weight: 150 lb Reason For Study: Chest pain BSA: 1.8 m2 History: HTN,Murmur,Alcohol use Ordering Physician: Lexi^Nadia Referring Physician: Loreta Cummings Performed By: Chloe Angel, RUST Interpretation Summary Stress echo test aborted after [...] 08:15 AM BP: 148/85 mmHg Patient Location: [facility] HR: 65 : 1985 Gender: Male Height: 67 in Age: 38 yrs Ethnicity: WHT Weight: 150 lb Reason For Study: Chest pain BSA: 1.8 m2 History: HTN,Alcohol use Ordering Physician: John^Loreta^Nadia Referring Physician: Loreta Cummings Performed By: Chloe Angel RUST Interpretation Summary No comparison study is available. [...] Abnormal stress test Alcohol use disorder in [facility] (more content not included)... Normal [facility] Comment on above: Result Comment: Elec tronically Signed By: Shalonda MULTANI, Marc Love\\.chidi\\Date and Time Signed: 03/17/24 14:46 EDT Lab Miscellaneous-LCon 03-09 Lab Miscellaneous COMMENT Invalid Interpretation Code [facility] Comment on above: Result Comment: Test Ordered: [id number] Hered.Hemochromatosis, DNA Hereditary Hemochromatosis Comment TG Results: c.845G>A (p.Bvs708Mkr) - Not Detected c.187C>G (p.Qky46Kwj) - Not Detected c.193A>T (p.Zfo20Luk) - Detected, heterozygous Not associated with increased [...] for patients who are homozygous for c.845G>A (p.Emz927Aff) and have yet to experience clinical symptoms. Comments: The most common HFE variants associated with hereditary hemochromatosis are c.845G>A (p.Phn358Vir), c.187C>G (p.Sil76Lcz), c.193A>T (p.Fyh98Hxe). While patients homozygous for c.845G>A (p.Aug825Njw) are the most likely to present clinical symptoms, less than 10% develop clinically significant iron overload with tissue and organ damage. Genetic counseling is recommended to discuss the potential clinical implications of positive results, as well as recommendations for testing family members. Genetic Coordinators are available for health care providers to discuss results at [phone] Test Details: Three variants analyzed: c.845G>A (p.Dpc470Djg), commonly referred to as C282Y c.187C>G (p.Pwa53Srq), commonly referred to as H63D c.193A>T (p.Hst03Did), commonly referred to as S65C Methods/Limitations: DNA [...] developed and its performance characteristics determined by [employer]. It has not been cleared or approved by the Food and Drug Administration. References: Jh BR, Xavier PC, Diane KV, Ilya LW, Allan ; [employer]. Diagnosis and management of hemochromatosis: 2011 practice guideline by the [employer]. Hepatology. 2011 Mar;54(1):328-43. doi: 10.1002/hep.22219. PMID: 00256376; PMCID: QDB4847863. Jasson G, Blake P, Scarlet DW, Kalyn H, Elliott O, Humberto S, Myles I, Nehemias M, Sanjay S. [facility] best practice guidelines for the molecular genetic diagnosis of hereditary hemochromatosis (HH). Eur J Hum Sisi. 2016 Dec;24(4):479-95. doi: 10.1038/ejhg.2015.128. Epub 2014Mar 14. PMID: 25152427; PMCID: PGT3901955. Reviewed by: Comment TG Technical Component performed at [facility] RTP Professional Component performed by: Selena Funes, Ph.D., [facility] Director, Molecular Genetics [address] [place] [address] Performed at: [address] [id number] PhD Poncho Prater Performed By: #### 1 [id number] #### [facility] [address] [place] [address] Copper Lvlon 03-04-2024 Copper [Mass/Vol] 80 microgram/dL Invalid Interpretation Code 69-132 [facility] Comment on above: Result Comment: This test was developed and its performance characteristics determined by [facility]. It has not been cleared or approved by the Food and Drug Administration. Detection Limit = 5 Performed at: [address] [id number] MD Héctor Carney Performed By: #### 1 [id number] #### [facility] [address] [place] [address] Haptoglobinon 03-04-2024 Haptoglobin [Mass/Vol] mg/dL Low 17-317 [facility] Comment on above: Result Comment: Perf ormed at: [facility] [place] [id number] [place], [place] [id number] PhD Poncho Prater Performed By: #### 2 [id number] #### [facility] [address] [place] [address] BLOOD BANKOrdered By: Maria Isabel bain on 03-02-2024 AYLIN IgG/C3d Tube Negative (03/02/24 1:51 PM) Normal [facility] BB Subsection Bili Tot/Diron 03-02-2024 Bilirubin [Mass/Vol] 5.0 mg/dL High 0.0-1.1 [facility] Comment on above: Performed By: #### 2 [id number] #### [facility] [address] [place] [address] Bilirubin.direct [Mass/Vol] 1.2 mg/dL High 0.0-0.4 [facility] Comment on above: Performed By: #### 2 [id number] #### [facility] [address] [place] [address] Bilirubin.indirect [Mass or moles/Vol] 3.8 mg/dL High 0.1-0.9 [facility] Comment on above: Performed By: #### 2 [id number] #### [facility] [address] [place] [address] CBC w/ Auto Diffon 4 Basophils/100 WBC (Bld) 0.6 % Normal 0.0-2.0 [facility] Comment on above: Performed By: #### 2 [id number] #### [facility] [address] [place] [address] Basophils/Leukocytes Auto (Bld) [Pure # fraction] 0.0 E9/L Normal 0.0-0.2 [facility] Comment on above: Performed By: #### 2 [id number] #### [facility] [address] [place] [address] Eosinophils (Bld) [#/Vol] 0.1 E9/L Normal 0.0-0.5 [facility] Comment on above: Performed By: #### 2 [id number] #### [facility] [address] [place] [address] Eosinophils/100 WBC (Bld) 3.0 % Normal 0.0-8.0 [facility] Comment on above: Performed By: #### 2 [id number] #### [facility] [address] [place] [address] Erythrocyte distribution width (RBC) [Ratio] 15.6 % High 10.9-14.2 [facility] Comment on above: Performed By: #### 2 [id number] #### [facility] [address] [place] [address] Hematocrit (Bld) [Volume fraction] 33.0 % Low 37.7-49.0 [facility] Comment on above: Performed By: #### 2 [id number] #### [facility] [address] [place] [address] Hemoglobin (Bld) [Mass/Vol] 11.7 g/dL Low 13.5-17.5 [facility] Comment on above: Performed By: #### 2 [id number] #### [facility] [address] [place] [address] Lymphocytes (Bld) [#/Vol] 1.1 E9/L Normal 1.0-4.0 [facility] Comment on above: Performed By: #### 2 [id number] #### [facility] [address] [place] [address] Lymphocytes/100 WBC (Bld) 24.5 % Normal 14.0-50.0 [facility] Comment on above: Performed By: #### 2 [id number] #### [facility] [address] [place] [address] MCH (RBC) [Entitic mass] 37.3 pg High 27.0-34.0 [facility] Comment on above: Performed By: #### 2 [id number] #### [facility] [address] [place] [address] MCHC (RBC) [Mass/Vol] 35.5 g/dL Normal 31.4-36.0 [facility] Comment on above: Performed By: #### 2 [id number] #### [facility] [address] [place] [address] MCV (RBC) [Entitic vol] 105.0 fL High 80.0-100.0 [facility] Comment on above: Performed By: #### 2 [id number] #### [facility] [address] [place] [address] Monocytes (Bld) [#/Vol] 0.4 E9/L Normal 0.2-1.0 [facility] Comment on above: Performed By: #### 2 110031 #### [facility] [address] [place] [address] Neutrophils (Bld) [#/Vol] 2.7 E9/L Normal 2.0-7.5 [facility] Comment on above: Performed By: #### 2 [id number] #### [facility] [address] [place] [address] Neutrophils/100 WBC (Bld) 62.6 % Normal 36.0-75.0 [facility] Comment on above: Performed By: #### 2 [id number] #### [facility] [address] [place] [address] Platelet 85.0 E9/L Low 150.0-500.0 [facility] Comment on above: Performed By: #### 2 [id number] #### [facility] [address] [place] [address] Platelet mean volume (Bld) [Entitic vol] 9.2 fL Normal 6.4-10.8 [facility] Comment on above: Performed By: #### 2 834112 #### [facility] [address] [place] [address] RBC (Bld) [#/Vol] 3.2 E12/L Low 4.3-5.9 [facility] Comment on above: Performed By: #### 2 [id number] #### [facility] [address] [place] [address] WBC corrected for nucl RBC Auto (Bld) [#/Vol] 4.4 E9/L Normal 4.0-11.0 [facility] Comment on above: Performed By: #### 2 [id number] #### [facility] [address] [place] [address] CHEMISTRYOrdered By: SYSTEM SYSTEM on 03-02-2024 Bilirubin [...] 5.60 mcIU/mL Remisol Chem Consenton 03-02-2024 Consent [id number] [facility] [id number]#1.00T IFF Normal [facility] Consent for Treatmenton 02-06 Consent for Treatment [id number]#1.00T IFF Normal [facility] AYLIN IgG/C3d.on 03-02-2024 AYLIN IgG/C3d Tube Negative Normal [facility] Comment on above: Performed By: #### 8 [id number] #### [facility] [address] [place] [address] Folateon 03-02-2024 Folate [Mass/Vol] 20.5 ng/mL Normal >=6.7 [facility] Comment on above: Performed By: #### 2 [id number] #### [facility] [address] [place] [address] Free T4on 03-02-2024 Free T4 [Mass/Vol] 0.64 ng/dL Normal 0.58-1.64 [facility] Comment on above: Performed By: #### 2 587441 #### [facility] [address] [place] [address] HEMATOLOGYOrdered By: SYSTEM SYSTEM on 03-02-2024 Basophils/100 [...] LDHon 03-02-2024 LDH 238 Int._Unit/L High 93-218 [facility] Comment on above: Performed By: #### 2 [id number] #### [facility] [address] [place] [address] Lab Miscellaneous-LCon 03-02 Test Code 678558 Invalid Interpretation Code [facility] Comment on above: Performed By: #### 1 [id number] #### [facility] [address] [place] [address] Test Name HFE gene Invalid Interpretation Code [facility] Comment on above: Performed By: #### 1 [id number] #### [facility] [address] [place] [address] Reference Laboratory Testing Ordered By: Karina Vela on 03-02-2024 Test Code 132296 1 Invalid Interpretation Code [facility] Test Name HFE gene Invalid Interpretation Code [facility] Retic Counton 03-02-2024 Reticulocytes/100 RBC (Bld) 2.7 % High 0.5-2.2 [facility] Comment on above: Performed By: #### 2 [id number] #### [facility] [address] [place] [address] TSHon 03-02-2024 TSH Qn 1.24 m[IU]/L Normal 0.34-5.60 [facility] Comment on above: Performed By: #### 2 193787 #### [facility] [address] [place] [address] Coding Summary.on 03-01-2024 Coding Summary. BRCGYsff57CCt2qJw+PG hlY WQ+ZZ1VJOYrB71teCNvuB3n A0NNGMqWIlwfFWHXGVtCCzT rrrOvRN6hzPNjXPUl IC8+UT3yWMWoIihhcMNhf3H 7aLG7S21dzb9xALouhXB8UL SgWlCyehslj9ccnOn1XMcoG mluOyBt YGSjlA41LOO1kM00Py03zKF mxBSgg5etbVd8YzInPLOhQG N5lDrbYZvsv3IiUHTxP89hs TYmv1K8 VUNchOqygPTgGyHokPY1pX4 fAFkarpxfp8fdztrwNji5og 13kCNrz3C1pXN0M5IzhsO5U GJvbGQg HcdnaKNAeE7hhzoju3fawna pThTtUMPaXJj2AJy3UUZsoJ zwVbXiVT89CRH4RYQbneYsD 2FsLWFs dIudLeE9b3J7Ql9KC3WMZht hH3SRRMFRUSaqkBM+PC90cj 44S8CgFxdcPxl3HHPqVBF2o UD3iV7q XYNuHVuge5O2xUW8B3WnhhS dca8py8nzMBDgXDvfO66hjB Fwn8Y0HGHzjMT1KQMuyWjwN iBzaG93 Oyc+NZSihBhov4ZsBuakp0e pq3bxxGv5RefzMPBazbWyhB hmMUX0j5IfMy4hMFIthBZ3b RR8oC1k BeAmAgN6IHblR742TiNqhMI gWunhX42tF3DqkAE+PHRyPj g7YVBlsIbmAB5eL6YsZCDnt mctbGVm qUyaWP8sXQVjnxodVNXreV0 oSKIuR5q1VyFjWaB6JVwqB0 XrKYMiatdkAy49lA3dGnPpZ jV1MLnw A1TtihD5TMJnpYNqREsxMHO 9C72na6M3ZIRyAJQfQEA0qN R6uX1wvXgduqyyhHYgoVdvj mVydGlj RVmvCZfdE898RESweWxhLhA vZGluZyBEYXRlOiAgMDYvMj UvMjAyNDwvdGQ+OZNrUYQ3c WxlPSAn xXKdIHkiZu4hwUvetAyoGV4 iMKSdljomYJIsuO1yECPmzZ RxeFmbWK6oZGKmmkxal594I iAxMHB0 RHUeoSZrW1RplA4xRpMlOMY oGDNzJ6YbaNHzNIljW000CQ jcDyT2HSJvwtHlP5YyYJLmq WduOiB0 i5M8Gr0Tl4WbwvflK0GkxHH wEiPyWzkpCIb6N4XqPalppX I+PX92SQZpLB80WKk3PGZ9f WxlPSdi DVKaK1LgwG9qErYiWQPnXPX kOyc+PHRhYmxlIHdpZHRoPS bsYOHtUfMgiWqyHC3gOq4kL GVyLWNv vIkpuMAiDkKek1euQWToCAp dGM4asZhoH3SrqSK1EUQkn5 c4Li15X48qP7VqnCU+PGNvb WH8tFO7 iX0qKdDkXpK6VOmxJ097WiG qbEEbPvtjz7kfi9rmmSl6Ka Z0URBsvzGlsVeuLGS8l9GyA u01D83x IHdpZHRoPSIxNSUiIHZhbGl tfq3jeT0xSo1+IKDhjCH5gT X5iT4rStXvQxL2KDvoK468V nRvcCIv Xedyn3dan2sulJx4ZtJrEIG skeBawKziOXK3r5SzOh55O9 LakEqzx3WpKbw4qt73dBKik 4J2eLR5 R0WqHDVtixisoNXrcLhkKV1 nNBUrnwnpABRmjK0mRKCzS8 o2YqMcNxL6LOfhD3ByjeK1B GJvbGQg LNDbeMDRbK8mwfqun0vgqcg jSxRvXITpNSz0JMw1THOkzK maMpBnNDW3TyP7NRP8pKIdm Z2mkRed ebkqiJ9rGtu+EHQ4lAHxxQL KLX7rUgjxvTP+HCEcDIY8kB biIEpmGWNmfY9oHVLgZ9u6S iAwLjA1 PAhhA9DzyeB2OPQnvLDnICX ccFXYrP3evopry7qfjmahEz JcRXOsRUi7TFv0FJRoqWpnN iBsZWZ0 KwB3GLG7hTJltX2nlZjoewu lxO3oIyo+NnzdlBwhIVU9BR i9J6ItZun8FQCqqUjgZZ4dx GFkZGlu Uc1klUrdrDhsRN6vKSQingi xt681CtIqo3knFMUknILqMV zgXLJ5V58bv5F2DWFwFLVoH BV6hZG4 cC1sfIgculnslLVgcSvpqbX vePbbKHloKFdvR526CXTbdG nrRpWsEBo9O1MdEgl4MTZpc HdtEM0q oMBkIIurWr5rlXtipGbyRK7 zURUkaqjmz282DjVgf4jxXD LgmDQbITqaHBY6B59zw8V2E CMwMDAw IKJ2mHD3cV9bnQafalwijTE mdDsgdmVydGljYWwtYWxpZ2 61JEWvqDfqVgRdsGj8G5TeQ go7UGMc kXetXJ5evQIuPKitSe8mwNl vnMxbSJ1vSTEavsetb659Jy Vzh8sdNMBthJIdKTvaOYQ9W 64vb7U8 TBKmNWZwPWO8kDT3pV2eqFn nbjogbGVmdDsgdmVydGljYW wzKGbfB702UJCpuCvvXdXsr GllbnQg JQgiKGb6O4CrNmdjfPF+PC9 5QUZkAQ67jQCrxEHuk8fwdF e4EoRwXJBlZGY1kBwdWLoxo 3JkZXIt Y22bpXCgk7L2CCYwmJzbxFD lKjAlsHR7pI4tWSqiwndoc6 oxhpphAqjwl9rozq50tT14Z 29sIHdp ZHRoPSIzMCUiIHZhbGlnbj0 kfO4cQh8+WMJehDS9yTU2nL 7dAFTwCpF2ZVjyA320HdNbc CIvPjxj h8fna9bjaFz7WjQ4YOGbwbQ vqTwjDMV4c1CaJc27E62yAR dpZHRoPSIyMCUiIHZhbGlnb u1fcA0m Ii8+CUDjwVC4bJR5kU8lArS kAsP2TOrhR278VnYmrLKqQz dxR90lW1NubEY+IRQiUqi3G CBzdHls XX0daETuBVidSc6bSHP4FiK cCwOyUOklX9GlEYKhrplrww zgtNW3MDRmIDVsuO04Qf2uh DogMTBw dMLAcD0niteeu2cdyxoaSrY uXZJjNRc4PRg6JLZcuPzbDy CfKWW2AoF7CGM4oXWwsR1el Glnbjog lU3eN4MjIAVkqqfgKu88aA0 gEvAbBgY7EJhnNhx+SEVZTU CBKMSEFX2QPMd1T2DnNus2L CBzdHls YZ9poQMaUQpyMe0lePqmqIh oVI8gGAXvtkvgDEJefT9pTM KxvHGfcOcfZG3nSFXqdtpqj 250OiAx NBY0PALrdJAuZ2ZqwB7fNdC dATFjGSEpF2UpaFMjAXmcA7 51AWwhSfQ5JMOhjwXgL0ShY WFsaWdu EzG9r8D0Lz7mBZ5pBp7xHOj 9ED70LJ85mZGiw5K3oAD4Z3 XtJAHyhjzlruglzAF2BUSeT DUwaW47 vYDuBXyzYi5ka6X3o912PVY yAEVbqK07Wi5apMesDZVcjK GKkR6burhmm3mnjnnlUkZfM DAwMDt0 DZn2BLFyfLggRpLoRYF4QiC 8AKV3lJItiP1yxYhroigkeC 9wOyc+IdlxFGJrpcW6H8TlB ce1HWJz tEhjHM0meSShQHdoAc4upXt hcGvvSD8uOYMzpiumTAShcY 2dICEjxVLluQkbPI6vNTOlb pwpv030 SzSzBNQ5ZBFqtMXuY6ThvA3 aXrZtVTLfMKLqV2OzcSPvVG nbF623RSkkZjB9UTMjcyUwP 2FsLWFs iZnnPkC6v6Y0Yz0UFZnhZP3 0CY10bOQse4L9vEQ2H1BxOR DgjdwgrpfmmBH3AUWxRWYnh I43dVJg TKgyGa3fm1A7c989QEPrPMG dyN31Wh4vpPptSVFutXVJtG 6tvojir8dblhcqCaPtFLDhV Dg5UUb1 IBAytLvkXfJhHCS5XtN8KUU 3wZYsxW7vtEewcymdvR5aZx c+K2V5oYU7iCKffNmgrYC+P H23xc42 Z2WxZuplKrs0CFEjTGT7bXB 5bX2uOTIwLIjaa3I5pPZ7G7 FghyEvfa5by3liYBMvXDrlW 29sbGFw h4T3VUTieGN6TYMblLkaSaR jqW07Zly+RFRsrDivo6FzAb tlt0ooo7nukUh4XqXsGYHfn mFsaWdu UUK7n9ZkVu83Q30bOMfyKTH aAMGqCVKqDKFfaMeaoc4udJ 9wIi8+DKDrmFU9qQJ4xW5uA jAlIiB2 UTdpF163EoCfvJGbRelgu6z cu9soyRj6UyByBWDjpjHciI tcRPQ1a5GoOm73L1RycDund 8FkOpc4 ym29qWAnb9D4iRJ2C7FaSOX bcscljWRejMvpMJ9fEEFcyx jgHMKkcU5wGGWeW5l0BdJmH hD6DHco M3GwgcX9QQWngJXzPLBycVO MdW3ejzbfa9bqpmjyJsWuCI AxCHp0JFr7OEVbhSuzDaIdS JH5NqO1 ZMX9pWDibR9coVkpnnkzoS1 wOyc+CRq3l6jgxJSsZR0elM B3KK83MZ91mAJzm2C4cTF5D 3BhZGRp cyrwdbjnyAH3NENcYYYknI5 1Ay9wmKgaVf7zYHLaJZS3HV DfrEAxH2SgkT5sUrQmKADyM XKlK7Ea fMDjGIgkO722OUxoQxG1CEL iptXjK9AzHAJrzPszGtE7s5 P8Yi9TRO04WR56OW90yFNhp 3F4tVF2 A5JvDTNthjfggearwVQ7BDV pVTThuC50Pg5oyIleEy0wVS FwIYA6FTEniKJiO7ZnvK7sF iAjMDAw TILrH1OajMOvDOuhO670CUc eVnR1ZPGaedUeX4AtVDMgeN fxFoU2h6Y9Sm0HPy45DD72K E15wEDj p5K2xFH3F8MqSVOoagbwonb wlJH5AHKzPECcmT99Em6jwC rvOb6lLFJsMEI7SHMctKAkX 4PgpR6z KyGkEPOgCTCaU9UngSOeVIu hW348NNzuIlL1DERojdDhW4 VeSBApvKtdEiC2m8C6Ms9JP Xllcjo8 H9EbCffinGL+MP24VZFtHG4 6cWZwuISwk5ziaDk0BiFpOU MjEHJ0tIgfUIwfo8GmQACxQ 29sbGFw a0V7IIPuxSoej (more content not included)... Normal [facility] Coding Summary.on 02-29-2024 Coding Summary. VFUGIihc03KFk6mTu+PG hlY WQ+TK7FOAFbF93kzXKhdA2m K5WOGMxCXzlwUNPHSJyTIoZ xmhUzUG6biDLxZSLr IC8+RB3aUZHpGduzoTLih1P 5gME4C32sst4cCVfctLP4KY QcToZhluarc0tedGq3XKopA mluOyBt OURxeS85CFF5qO66Fl28kKX bvHFua5nwsCb9EbFuRPNsBF C1eQtyAUtdo2HfSMNxI08lh ZBhd4C9 DHDylEkvjOHkZmXqmAM3gB5 gCFnndcuih0qivomqExq4kt 60xELjt3G6dPL4V7YufvB7M GJvbGQg WwqblPKIlS4pbpgqx6pthbk aRtPdDFOpDWx1AOg0EYVmaK vuAfVkWB84OOE1YFYtfdHsH 2FsLWFs cGqvQkS8d7N5Np6WS2SZXwl bP5CUVXGHZGdvuHI+PC90cj 37Z1LfLtkmOdv6KDNhDQB6g MS3bE0c ZPTyJJhjo8H2tRR9N2BcceR dgq1kq0hbAXCyEXslT81fcP Rdf0P5STVmpBO7KYOppJifC iBzaG93 Oyc+SEVoiNsjz0RrKlveb8y gw9bhuNa9QvcbFXBqcnMgjL zqBEU6y0EyRk1qWDHauWI9t XY1hH8y ByVzMtB7VNixW793RkRarQU eIvjgE98mS4CmnQE+PHRyPj t1YSZrnAngJR5fT9KyVCVbg mctbGVm kOetRW2sYQFmebwoZJUqlR9 rUIHpQ5q9EwPaAtF9AKeyG2 GsVRDgyoeyZg48jE2nXsSvW tI6ZCmz T4HvruE8ZVQjnRKsGMetAAR 4Y23mh2I4DIIkDWErUBV1mH E2cJ6kdGwnpfyoyCVyvMzcy mVydGlj VYmbVGvwJ345GLZoeRszBnE vZGluZyBEYXRlOiAgMDYvMj QvMjAyNDwvdGQ+WKBtJWJ8o WxlPSAn wRAuWBblUa8tcRbyiXrsKJ5 eKLXovpqcXVJaiQ7qIOIxpI RimGvqNP7gNVQwhczbc081K iAxMHB0 AAXtnRSbQ9QyrF4cSfSdZTM uMHTwK8QiaLDcHYpnE809JC sgVrO2MISzorNiR0UeCNFjz WduOiB0 h6W7Xs5Ro1EdfegsE6GufEA wFvGaDgewSYu0E8TtFszewJ I+FY44GDAxLL86VEf0QUP2q WxlPSdi JBOmN5IrqM7rZkHjZIDyJVK kOyc+PHRhYmxlIHdpZHRoPS mzUCJcViXhrDphYY7aZg6wV GVyLWNv nBxyiGZkRtYgw5dxPYFbQDx kVH6rsCyvY8SejBT1WXWeu1 s3Ql59P92eE5PyoIZ+PGNvb RD0sSV9 iI3rKgOsNsH6ILboS790PrU fkWUrQdlcy0dlb0iumAv4Es L1NSCksqBsnWhiTER9y6JaP p61M44k IHdpZHRoPSIxNSUiIHZhbGl dtz6tvL7yEz9+ITJicID9nH N1kK6bMzBsTqE0TVrpY508G nRvcCIv Qquti9jep3tfnYe4PdXeLMF rlcIjdFwnSTB4x1OmBg33Q3 BsbUyzs4GqOnt5qc17bIOjg 7R7fVB2 U3QfJLBphjpuuWKzpNzyNU5 aOTSlmiwyPFLmyR0eBLCaG7 e7UkCsCwS6QJrvC4TuonW2I GJvbGQg SAKcgHBBeG9tjijme6pbyzo tKdNaDGYfEIm6NSi8MGIzjD vzPcMpTTW7DbQ7ZGJ7iTAvd Y5gnVjw gqogiP1iUei+PNI0nPJzjIT GPZ9uWetnxEL+YBOzXMS5hD keKEnwZCJvxF8sWHGzV5u2J iAwLjA1 PFreE0DcnbQ5ZQIjlVYiGEI reWZEbX6uwtrvf0rjufxsTu OoDTKvEVm2LKm5GZYhkQbrD iBsZWZ0 CyW1NFP5iMKeiC2ucGvwzet fcG6xCiv+GmlybPrbEZX8FK q5K3VaPue8LYSuuYbuSO3pu GFkZGlu Wu0deSplbVgbIX9iSILbycx qn613InDms5kmLLVizVCrAE vhYMD8M85aw3P5KFDnDBKvK KV8sVW4 pQ5yeBespkzygPIiaRferlE vvGcqHJryRUpwN555KPNfhU frPsEdXOh6N3AaJex2GQIyj TeuGS1x sPSnCFznZo1ieWdcaUagAN7 aQMAqctlza832ReVjf3mhXN DiiZWdZUlpJLK1B51oq9K7M CMwMDAw MPN2bPM9tU8phVxgiddgdKV mdDsgdmVydGljYWwtYWxpZ2 59YMBnlSntLwRhiGv7H2CsF mj3PFCu wLobUZ8ldNXtVNuzYl0nhZk goQyhJP0bKMTbxcxta235Ro Nnd5xzLKUzgXXaOHzdWSM0O 41nv0L5 ABSbYKUwEKS8zDD9tB4jjFb nbjogbGVmdDsgdmVydGljYW yuMPzoO838LDSxuMbpVyZvl GllbnQg VXpqXPg5R9JlCoultDZ+PC9 9JRPjXQ95mDMitNWwl6omyH j4JzOmPLFiSQU6rSwdHYtti 3JkZXIt U04btECih4K7VTWhrIiddYI gMaCyrLS1iN0tUXgmmweas8 ejgidkCyqgm9uvoo91iU12U 29sIHdp ZHRoPSIzMCUiIHZhbGlnbj0 kfM2xFs7+IVIqjKK1oSN3eU 8vEFMsFpK6SZywY854BfLdf CIvPjxj y0gmr5vtqMc9MgP4FXCmcsG xsXvrNOX2o7TsQb52D51cDR dpZHRoPSIyMCUiIHZhbGlnb q8oxZ0j Ii8+EPZjaES5kIS6bA4wEeI iVnW0BTzjP166HxPovEMcRd unK55rX1ZsjPE+GKCxRgu1Q CBzdHls JG6wiRWcPNljJq4tQVM5JzJ mRsOlAVbqT1KrGRXgyhdkir bpcWG3ZUPaUKHyeT75Am9oo DogMTBw pMQDtG9epnozi6jlxegnVeF eKXOsLJr0BZt5ETIytImrWf HoCYA9LjK0WVQ6uQUgmM4nf Glnbjog iS9nR6JfTHUquwuqEy51lB5 uTcPfEtW6LNsxXma+SEVZTU UKTVWTQD4DDQd0E1HtJqw7Y CBzdHls VS5bvCXjBUinWq5qsAidpZp vJZ7yAEYfgftwXPCwoU9vAG LczBBgxRhyNW5xXIDjvzwsk 250OiAx DOE0ZHRsaXWtA9NmlI9bYmO sTQVhAZIjW6XvqHYkDIvaM9 77OOijNaD1CEOgqkFdW6JvH WFsaWdu JeB9j6U8Ie3zJI9yMo9mKNj 4RY24VM21xGPen3F7iRH0L5 XoHTIzxvqijbrlcTF5ZLCiX DUwaW47 eCGsJMrbVt6dv4V3i487ROH lVLQobV59Xm6bkLncCVSnsE NHtT7lsucwj5phwkpqNcKbF DAwMDt0 RPz9JJTccWdhRkIgAJG2ZuL 8HAG2sVUjnN1uaJhfdlensG 9wOyc+LlncXDUpzzH4U7LzC pt8MIQj xBhhKT4uuGRgANctLz3vcSq lfDxbCF2dAEZdvzkoRPNycA 6dAISybGXgpYzlTO4yFORom jmhp786 BjAdVAG0AVYmhLWlC5UaaC2 yOmGfBIJxBGSfL1SshGRpDZ tgM889EKwiHjJ4POFnwgTaT 2FsLWFs aHhqIwN1d5H9Fh8CBOhmOO8 4FD79yVQvr2D7lFA6D8BsJH XcjurkwinozAM6TYOaTXPoz B44iSQl QXaoMa5oq9P9q793WSQnGFO dmK21Qo7glZqaTXXcoCQIoY 5lgyetj1lzzfrcSnSgEMXwK Jn5WVg2 JHGkdVuyCnVyTAQ7MqI9PXB 7gONpaN8ljRvtfjrhuB7oPx c+M2J3gGH2uMCtpVfrqBK+P R88ci52 V7CjErprUeg1BDHgDVJ1aXP 7hC0hCYBkSKfgv1T5qRY1Y6 HvvhAsav4wf7dyPUUjDUrsN 29sbGFw k0L3BWBjgWL6NDShdFtnFdW rlZ30Olw+WVOdaLfst1OgFq arp9zqg4cuwLf0MqWbLZFkd mFsaWdu GVI0l9GkUs42L70lDRmrLKD mGHPfOXAcQQDgpBokxy8trR 9wIi8+GZIrqNF0bTY2tV5kN jAlIiB2 WRvmW101GoMflUKoVtozf1u ht4fzqDq3EmVkRTKwrbRziD ikOCY3j0YzLl15T5TxaFkyr 9QcYop2 uu97lOYvy3N7bMO9O7PnZAP bcttziZUgpBksPF4yDSHtsi ciSOHfdN1yBMPoX8j2OsKqG sW2GWrq T3ChwoV2XCKnmGIkAIWzkLA ApZ6ldbtit7qizrgfSeLwYO SiJBq0MXs3AQBchLsdOhHvW SH2WoJ8 XXB4pGGujS5hoCdhknigiF6 wOyc+ILd1d9ulqKKzLD1ypB M7RN89RE60lRKqt1G3vMC4G 3BhZGRp ygrvbsabtIA1KVUyXYTrxM8 4Or5qjZmeIl5mDCIsUVP0OL EqoXHjA2JgyK8iPqEyWUCnZ HUfO6Wb dTUyPBzwE852YYhyKjY3YQC evlIwS5DwMPSrvPhyUnN4y5 L8Vr4JWG39QA19FP13bOMas 2Z5cBS2 A7CzCDNfrpjuvbviePU2GCE pLNWinI03Gf1zlUweIs4aYT EwOFH0WHMdnJBkU3TdzO0zZ iAjMDAw EBOyB1HazNPeCDgjI084DCy gEaM3XKSqptTqV5NzOYVorQ moUcM2q5M8Ad0FUz87TV99A R51yNKd n3P8pFS7U1RbHLXeoqtwszn iqWE5MJJgMVVnnI14Ju6oqE vaOk8dKGBaUVB8FCWrcSFhI 2PogJ6l QhPeDYLqSJAbY2HhbNWqLQa aD039BLpgQqC4UPCbrrKeR5 RoRXQesPouNeY3a6R7Fr2WF Xllcjo8 W4TeRxfxjNC+TW40LKGuVU8 6jAYyjPUvf0ygdMi9HxRsRF GbKAU9wVkjOIsue7YvCNTdK 29sbGFw d4X2HXUctEeje (more content not included)... Normal [facility] Consent for Treatmenton 02-06 Consent for Treatment [id number]#1.00T IFF Normal [facility] Laboratory Outside Office Co pyon 02-25-2024 Laboratory Outside Office Copy [id number]#1.00 TIFF Normal [facility] Outside Records Officeon Outside Records Office [id number]#1.00 TIFF Normal [facility] CBC w/ Auto Diffon 4 Basophils/100 WBC (Bld) 0.6 % Normal 0.0-2.0 [facility] Comment on above: Performed By: #### 2 [id number] #### [facility] [address] [place] [address] Basophils/Leukocytes Auto (Bld) [Pure # fraction] 0.0 E9/L Normal 0.0-0.2 [facility] Comment on above: Performed By: #### 2 [id number] #### [facility] [address] [place] [id number] Eosinophils (Bld) [#/Vol] 0.1 E9/L Normal 0.0-0.5 [facility] Comment on above: Performed By: #### 2 [id number] #### [facility] [address] [place] [address] Eosinophils/100 WBC (Bld) 3.8 % Normal 0.0-8.0 [facility] Comment on above: Performed By: #### 2 [id number] #### [facility] [address] [place] [id number] Erythrocyte distribution width (RBC) [Ratio] 15.5 % High 10.9-14.2 [facility] Comment on above: Performed By: #### 2 299472 #### [facility] [address] [place] [address] Hematocrit (Bld) [Volume fraction] 33.1 % Low 37.7-49.0 [facility] Comment on above: Performed By: #### 2 085515 #### [facility] [address] [place] [address] Hemoglobin (Bld) [Mass/Vol] 11.5 g/dL Low 13.5-17.5 [facility] Comment on above: Performed By: #### 2 295610 #### [facility] [address] [place] [address] Lymphocytes (Bld) [#/Vol] 0.8 E9/L Low 1.0-4.0 [facility] Comment on above: Performed By: #### 2 216366 #### [facility] [address] [place] [address] Lymphocytes/100 WBC (Bld) 21.1 % Normal 14.0-50.0 [facility] Comment on above: Performed By: #### 2 037124 #### [facility] [address] [place] [address] MCH (RBC) [Entitic mass] 37.1 pg High 27.0-34.0 [facility] Comment on above: Performed By: #### 2 536481 #### [facility] [address] [place] [address] MCHC (RBC) [Mass/Vol] 34.7 g/dL Normal 31.4-36.0 [facility] Comment on above: Performed By: #### 2 503367 #### [facility] [address] [place] [address] MCV (RBC) [Entitic vol] 106.8 fL High 80.0-100.0 [facility] Comment on above: Performed By: #### 2 074789 #### [facility] [address] [place] [address] Monocytes (Bld) [#/Vol] 0.4 E9/L Normal 0.2-1.0 [facility] Comment on above: Performed By: #### 2 254318 #### [facility] [address] [place] [address] Neutrophils (Bld) [#/Vol] 2.4 E9/L Normal 2.0-7.5 [facility] Comment on above: Performed By: #### 2 521317 #### [facility] [address] [place] [address] Neutrophils/100 WBC (Bld) 65.0 % Normal 36.0-75.0 [facility] Comment on above: Performed By: #### 2 956120 #### [facility] [address] [place] [address] Platelet 73.0 E9/L Low 150.0-500.0 [facility] Comment on above: Result Comment: Tierney pheral smear review performed. Performed By: #### 2 832294 #### [facility] [address] [place] [address] Platelet mean volume (Bld) [Entitic vol] 8.8 fL Normal 6.4-10.8 [facility] Comment on above: Performed By: #### 2 028382 #### [facility] [address] [place] [address] RBC (Bld) [#/Vol] 3.1 E12/L Low 4.3-5.9 [facility] Comment on above: Performed By: #### 2 739899 #### [facility] [address] [place] [address] WBC corrected for nucl RBC Auto (Bld) [#/Vol] 3.8 E9/L Low 4.0-11.0 [facility] Comment on above: Performed By: #### 2 551958 #### [facility] [address] [place] [address] CHEMISTRYOrdered By: SYSTEM SYSTEM on 02-20-2024 Albumin [...] 02-20-2024 Albumin [Mass/Vol] 3.1 g/dL Low 3.3-5.0 [facility] Comment on above: Performed By: #### 2 844559 #### [facility] [address] [place] [address] Albumin/Globulin (S) [Mass conc ratio] 0.9 Low 1.1-2.2 [facility] Comment on above: Performed By: #### 2 493083 #### [facility] [address] [place] [address] ALP [Catalytic activity/Vol] 190 Int._Unit/L High 21-98 [facility] Comment on above: Performed By: #### 2 994149 #### [facility] [address] [place] [address] ALT No additional P-5'-P [Catalytic activity/Vol] 77 Int._Unit/L High 6-46 [facility] Comment on above: Performed By: #### 2 296933 #### [facility] [address] [place] [address] Anion gap [Moles/Vol] 10 mmol/L Normal 6-16 [facility] Comment on above: Performed By: #### 2 724755 #### [facility] [address] [place] [address] AST [Catalytic activity/Vol] 120 Int._Unit/L High 5-43 [facility] Comment on above: Performed By: #### 2 939141 #### [facility] [address] [place] [address] Bilirubin [Mass/Vol] 7.8 mg/dL High 0.0-1.1 [facility] Comment on above: Performed By: #### 2 658506 #### [facility] [address] [place] [address] Calcium [Mass/Vol] 8.4 mg/dL Low 8.9-11.1 [facility] Comment on above: Performed By: #### 2 558106 #### [facility] [address] [place] [address] Chloride [Moles/Vol] 103 mmol/L Normal 101-111 [facility] Comment on above: Performed By: #### 2 439171 #### [facility] [address] [place] [address] CO2 [Moles/Vol] 27 mmol/L Normal 21-31 [facility] Comment on above: Performed By: #### 2 952504 #### [facility] [address] [place] [address] Creatinine [Mass/Vol] 0.6 mg/dL Normal 0.5-1.3 [facility] Comment on above: Performed By: #### 2 413053 #### [facility] [address] [place] [address] Globulin (S) [Mass/Vol] 3.4 g/dL Normal 1.4-4.0 [facility] Comment on above: Performed By: #### 2 821422 #### [facility] [address] [place] [address] Glucose [Mass/Vol] 192 mg/dL Normal 55-199 [facility] Comment on above: Performed By: #### 2 904189 #### [facility] [address] [place] [address] Potassium [Moles/Vol] 3.6 mmol/L Normal 3.5-5.3 [facility] Comment on above: Performed By: #### 2 358146 #### [facility] [address] [place] [address] Protein [Mass/Vol] 6.5 g/dL Normal 6.0-7.8 [facility] Comment on above: Performed By: #### 2 872058 #### [facility] [address] [place] [address] Sodium [Moles/Vol] 136 mmol/L Normal 135-145 [facility] Comment on above: Performed By: #### 2 009007 #### [facility] [address] [place] [address] Urea nitrogen [Mass/Vol] 6 mg/dL Normal 5-21 [facility] Comment on above: Performed By: #### 2 108417 #### [facility] [address] [place] [address] Urea nitrogen/Creatinine [Mass ratio] 10 No Units Normal 10-20 [facility] Comment on above: Performed By: #### 2 726373 #### [facility] [address] [place] [address] Consent for Treatmenton 06- Consent for Treatment [id number] IFF Normal [facility] Ferritinon 02-20-2024 Ferritin [Mass/Vol] 527 ng/mL High 24-336 [facility] Comment on above: Performed By: #### 2 342392 #### [facility] [address] [place] [address] HEMATOLOGYOrdered By: SYSTEM SYSTEM on 02-20-2024 Basophils/100 [...] 02-20-2024 Iron [Mass/Vol] 227 microgram/dL High 35-153 [facility] Comment on above: Performed By: #### 2 748339 #### [facility] [address] [place] [address] Iron Saturationon 02-20-2024 Iron binding capacity [Mass/Vol] 230 microgram/dL Low 250-400 [facility] Comment on above: Performed By: #### 2 008936 #### [facility] [address] [place] [address] Iron saturation [Mass fraction] 99 % High 20-50 [facility] Comment on above: Performed By: #### 2 119180 #### [facility] [address] [place] [address] Transferrinon 02-20-2024 Transferrin [Mass/Vol] 164 mg/dL Low 200-370 [facility] Comment on above: Performed By: #### 2 794452 #### [facility] [address] [place] [address] Vit B12on 02-20-2024 Cobalamin (Vitamin B12) [Mass/Vol] pg/mL Normal 50-1500 [facility] Comment on above: Performed By: #### 2 909451 #### [facility] [address] [facility] [place] [address] eGFRon 02-20-2024 eGFR 126 mL/min/1.73 m2 Normal >=59 [facility] Comment on above: Order Comment: Order added by Discern Expert. Performed By: #### 1 [id number] #### [facility] [address] [place] [address] Family Medicine Office/Clini c Noteon 01-29-2024 Family [...] Cholelithiasis. The patient sought consultation at the [facility] in [place], but he was informed that surgical consultation must be at the main campus. He subsequently scheduled an appointment and was informed that they can do the consultation and they will contact [facility]. He was called again and was informed that he is required to consult with a germination worker. He currently does not experience any pain [...] present. Neurological (more content not included)... Normal [facility] Comment on above: Result Comment: Elec tronically Signed By: Loreta Padilla\\.br\\Date and Time Signed: 01/29/24 04:45 EDT\\.br\\Electronically Co-Signed By: Monie Parks\\.br\\Date and Time Co-Signed: 01/27/24 14:24 EDT Ambulatory [...] 4 mg Tab) potassium chloride (Potassium Chloride (Fxk-Derj-Bhj M20) 20 mEq oral tablet, extended release) [...] Barby MULTANI, Iglesia Mary Where: [facility] 2023 3:15 PM EDT With: Mario Evans MD Where: [facility] Normal [facility] Patient Educationon 01-27-20 Patient Education Cardiovascular Peripheral [...] these instructions at home: Medicines ? Take wbdq-iyq-ihekjit and prescription medicines only as told by your health care provider. ? If you are taking blood thinners: ? Talk with your health care provider before you take any medicines that contain aspirin or NSAIDs, such as ibuprofen. These medicines (more content not included)... Normal [facility] Telephone Encounteron 2023 Signal Timer Authentication Interface Message Text Pharmacy is attempting to schedule an appointment for this patient. Per protocol, we will make 1 attempt to contact patient before routing to nurse for follow up. Medication request adjusted to only a 3 month supply to allow time for appointment to be scheduled. Thank you. Normal [facility] Physician Referralon 024 Physician Referral [id number]#[id number] IFF Normal [facility] US Abdomen, Limitedon 2023 US Abdomen, Limited [...] this report do not require routine follow-up imaging.\\X09\\ COMPARISON: CT 12/11/2023. RESULT: Moderate limitations from [...] MD Transcribed by: 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 Normal [facility] Consent for Treatmenton 12-07 Consent for Treatment [id number]#1.00T IFF Normal [facility] Physician Referralon 024 Physician Referral [id number]#[id number] IFF Normal [facility] CNOVon 12-30-2023 CNOV Office Visit (GENSME ) RAMOWILL ([id number]) 1985 M Date Time Provider Department 12/30/23 [...] with abdominal pain and abnormal labs from [facility]. These values are visible in [...] the option of seeing HPB surgery at [facility] as this would be the best option [...] gallstones. Blood work was also performed through [facility] along with the CT scan. His liver function tests were elevated along with his INR and bilirubin aware of his baseline laboratory values. He does see a germination worker and is being treated for liver failure. [...] naloxone 4 mg/actuation nasal spray (NARCAN) 1 [place] by nasal (alternating) route. oxyCODONE ir (OXYIR) [...] Visit Diagnosis:Gallstones [K80.20] Order(s):CONSULT TO [facility] [[id number]] Order #: [id number]: 1 Prescriptions as of 12/30/2023 - CHOLECALCIFEROL, [...] - myc (more content not included)... Normal [facility] Office/Clini c Noteon 12-24-2023 Family Medicine Office/Clinic Note Chief Complaint TCM follow up. Dx Intractable pain and cirrhosis HPI Staff Reason for Visit: TCM Follow up Acute: Patient states he is having stomach issues (for the past month) and doesn't know if it is a parasite. Patient states he is having chronic headaches, fatigue, and uncontrollable gas. 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 Cholelithiasis and epigastric pain. [...] feels across his abdomen. He saw his rn documentation specialist, Dr. Evans who did an endoscopy in [...] for 3 days. He reports sleeping at [facility] (more content not included)... Normal [facility] Comment on above: Result Comment: Elec tronically Signed By: Loreta Padilla\\.br\\Date and Time Signed: 12/24/23 19:04 EDT\\.br\\Electronically Co-Signed By: Dagmar King\\.br\\Date and Time Co-Signed: 12/23/23 17:02 EDT Physician Referralon 024 Physician Referral [id number]#1.00 TIFF Normal [facility] Patient Educationon 12-23-19 24 Patient Education Gastroenterology [...] added (diluted fruit juice). ? Eat bland, bneu-md-pxpsbe foods in small amounts as you are able. These foods include bananas, applesauce, rice, lean meats, toast, and crackers. ? Avoid drinking fluids that contain a lot of sugar or caffeine, such as energy drinks, sports drinks, and soda. ? Avoid alcohol. ? Avoid spicy or fatty foods. General instructions ? Take zuoy-zsu-vuvoowm and prescription medicines only as told by [...] and water are not available, use hand credentials specialist. ? Make sure that everyone in your [...] recommendations for eating and drinking and take metz-ozi-ujqccqu and prescription medicines only as told by [...] provider. Document Revised: 02/28/2022 Document Reviewed: 02/28/2022 [employer] Patient Education ? 2022 [employer]. Esophageal Variceal Ligation Esophageal variceal ligation (EVL) [...] their blood (more content not included)... Normal [facility] .Interpretation:on 4 HCV Ab IA Ql Comment Invalid Interpretation Code [facility] Comment on above: Result Comment: Not infected with HCV unless early or acute infection is suspected (which may be delayed in an immunocompromised individual), or other evidence exists to indicate HCV infection. Performed at: Lab[address] [id number] PhD Poncho Prater Performed By: #### 2 401630, [id number], 23737758, 3524756, 0871109, 093087074, 8429297, 7685431, 25100760, 5271488, 5830236, 6122103, 0137727458, 166108824, 8113717670, 5830334 ####[facility] [address] [place] [address] Acute Hepatitis A B C Panelo n 12-22-2023 HAV IgM IA Ql Negative Invalid Interpretation Code Negative [facility] Comment on above: Performed By: #### 2 284782, 845389374, 89675023, 4763875, 5837255, 278072954, 0859054, 5114501, 20960888, 8783300, 2175121, 6910202, 7035869811, 201427472, 9328860550, 9241276 ####[facility] [address] [place] [address] HBV core IgM IA Ql Negative Invalid Interpretation Code Negative [facility] Comment on above: Performed By: #### 2 317927, 918093105, 84869656, 6073133, 9036843, 247464631, 6678959, 6797031, 55876672, 6429999, 4703101, 4372880, 3495038908, 131458392, 1025605573, 5087896 ####[facility] [address] [place] [address] HBV surface Ag IA Ql Negative Invalid Interpretation Code Negative [facility] Comment on above: Performed By: #### 2 655675, 585386851, 13301839, 1650378, 7356759, 996601488, 3766508, 6640422, 87553791, 5992358, 0568827, 8397256, 3748628621, 848102310, 7858703582, 0870303 ####[facility] [address] [place] [address] HCV IgG IA Ql Non-Reactive Invalid Interpretation Code Non Reactive [facility] Comment on above: Result Comment: [facility] [address] [place] [id number] PhD Poncho Prater Performed By: #### 2 371216, 126428219, 65030582, 4939813, 8344588, 519412676, 4143851, 0616506, 74873419, 9120386, 8663214, 0871415, 9611517225, 620642391, 9274679233, 9937799 ####[facility] [address] [place] [address] HIV Screen 4th Generation wR fxon 12-22-2023 HIV 1+2 Ab+HIV1 p24 Ag IA Ql Non-Reactive Invalid Interpretation Code Non Reactive [facility] Comment on above: Result Comment: HIV Negative HIV-1/HIV-2 antibodies and HIV-1 p24 antigen were NOT detected. There is no laboratory evidence of HIV infection. Performed at: [address] [id number] PhD Poncho Prater Performed By: #### 2 633753, 821273760, 83395995, 9498563, 2932186, 866949008, 0242987, 6488472, 87753408, 2723315, 7509707, 0198766, 0708053022, 583658219, 6039060665, 6775030 ####[address] [place] [address] Ammoniaon 12-21-2023 Ammonia (P) [Moles/Vol] 46 mcmol High 11-35 [facility] Comment on above: Performed By: #### 2 735415, 4116071, 5285165, 0478707, 0408896, 01531373, 9996099, 9548553 ####[facility] [address] [place] [address] Bili Directon 12-21-2023 Bilirubin.direct [Mass/Vol] 1.6 mg/dL High 0.0-0.4 [facility] Comment on above: Order Comment: Order Added by Discern Expert. Performed By: #### 2 068957, 4209402, 6951704, 9935907, 8613703, 94117220, 1279732, 5289693 ####[address] [address] CBC w/ Auto Diffon 4 Basophils/100 WBC (Bld) 0.5 % Normal 0.0-2.0 [facility] Comment on above: Performed By: #### 2 434899, 4890619, 1843642, 3548980, 5009364, 72667228, 3271073, 2879474 ####[address] [address] Basophils/Leukocytes Auto (Bld) [Pure # fraction] 0.0 E9/L Normal 0.0-0.2 [facility] Comment on above: Performed By: #### 2 198490, 1103515, 6098837, 7171686, 1872168, 12938745, 1531715, 5723685 ####[address] [address] Eosinophils (Bld) [#/Vol] 0.1 E9/L Normal 0.0-0.5 [facility] Comment on above: Performed By: #### 2 956420, 7239417, 9866172, 1894420, 0064086, 33156246, 8575852, 6881102 ####[address] [address] Eosinophils/100 WBC (Bld) 2.4 % Normal 0.0-8.0 [facility] Comment on above: Performed By: #### 2 161290, 9158982, 9452571, 3686514, 0922120, 96160470, 9619432, 8892461 ####[address] [address] Erythrocyte distribution width (RBC) [Ratio] 15.9 % High 10.9-14.2 [facility] Comment on above: Performed By: #### 2 406145, 8551688, 1814626, 7170924, 9170352, 17968623, 1899971, 6733967 ####[address] [address] Hematocrit (Bld) [Volume fraction] 32.3 % Low 37.7-49.0 [facility] Comment on above: Performed By: #### 2 192719, 1637542, 5647659, 9522261, 0643868, 37787344, 4789813, 6158714 ####[facility] [address] [place] [address] Hemoglobin (Bld) [Mass/Vol] 11.0 g/dL Low 13.5-17.5 [facility] Comment on above: Performed By: #### 2 807898, 3861407, 4599969, 9865972, 2284185, 07478204, 5585249, 5004409 ####[address] [place] [address] Lymphocytes (Bld) [#/Vol] 0.9 E9/L Low 1.0-4.0 [facility] Comment on above: Performed By: #### 2 717542, 9758894, 9492455, 8369707, 0312527, 57733913, 1706096, 5190664 ####[address] [address] Lymphocytes/100 WBC (Bld) 19.5 % Normal 14.0-50.0 [facility] Comment on above: Performed By: #### 2 069076, 5712345, 4063539, 4317908, 9312948, 71971487, 3823150, 8893761 ####[address] [place] [address] MCH (RBC) [Entitic mass] 36.3 pg High 27.0-34.0 [facility] Comment on above: Performed By: #### 2 678388, 3731831, 1673870, 2095108, 9215817, 12788500, 5636156, 9277764 ####[address] [address] MCHC (RBC) [Mass/Vol] 34.2 g/dL Normal 31.4-36.0 [facility] Comment on above: Performed By: #### 2 185935, 5401822, 5614339, 5053432, 5721893, 38656298, 5027521, 8955630 ####[address] [place] [address] MCV (RBC) [Entitic vol] 106.1 fL High 80.0-100.0 [facility] Comment on above: Performed By: #### 2 392978, 7870414, 6435933, 4067267, 9760838, 21420327, 6559486, 1354979 ####[address] [address] Monocytes (Bld) [#/Vol] 0.4 E9/L Normal 0.2-1.0 [facility] Comment on above: Performed By: #### 2 485818, 1096271, 1816550, 8458258, 3737602, 41338035, 3621899, 5316215 ####[address] [address] Neutrophils (Bld) [#/Vol] 3.0 E9/L Normal 2.0-7.5 [facility] Comment on above: Performed By: #### 2 361112, 4773838, 6843637, 6059119, 8826391, 34184651, 8754471, 4319114 ####[address] [address] Neutrophils/100 WBC (Bld) 68.7 % Normal 36.0-75.0 [facility] Comment on above: Performed By: #### 2 448467, 7736852, 8664633, 0728951, 6019981, 13231394, 8864004, 8790591 ####[address] [place] [address] Platelet 80.0 E9/L Low 150.0-500.0 [facility] Comment on above: Performed By: #### 2 626751, 0307404, 6584280, 6980665, 0648772, 03866685, 7356309, 1643978 ####[facility] [address] [place] [address] Platelet mean volume (Bld) [Entitic vol] 8.2 fL Normal 6.4-10.8 [facility] Comment on above: Performed By: #### 2 774440, 1625238, 2775198, 0072127, 5758169, 53596705, 7939536, 5852897 ####[facility] [address] [place] [address] RBC (Bld) [#/Vol] 3.0 E12/L Low 4.3-5.9 [facility] Comment on above: Performed By: #### 2 898311, 3711135, 4947378, 9794701, 1542631, 97333515, 2755045, 9657727 ####[facility] [address] [place] [address] WBC corrected for nucl RBC Auto (Bld) [#/Vol] 4.4 E9/L Normal 4.0-11.0 [facility] Comment on above: Performed By: #### 2 004309, 2019806, 0205620, 0259701, 2466539, 09372028, 2870574, 9516155 ####[facility] [address] [place] [address] CHEMISTRYOrdered By: SYSTEM SYSTEM on 12-21-2023 25-hydroxyvitamin [...] fraction] 4.0 % Normal <=5.9% [facility] ChemAutoSS CMPon 12-21-2023 Albumin [Mass/Vol] 3.6 g/dL Normal 3.3-5.0 [facility] Comment on above: Performed By: #### 2 951855, 8224687, 2822787, 0844206, 0006627, 15369690, 5181424, 3716225 ####[facility] [address] [place] [address] Albumin/Globulin (S) [Mass conc ratio] 1.1 Normal 1.1-2.2 [facility] Comment on above: Performed By: #### 2 316949, 7437768, 2455532, 7460613, 1225120, 99376549, 0972500, 0422599 ####[facility] [address] [place] [address] ALP [Catalytic activity/Vol] 262 Int._Unit/L High 21-98 [facility] Comment on above: Performed By: #### 2 080865, 8165096, 6359922, 3062713, 5591531, 18431423, 4191161, 6208300 ####[facility] [address] [place] [address] ALT No additional P-5'-P [Catalytic activity/Vol] 60 Int._Unit/L High 6-46 [facility] Comment on above: Performed By: #### 2 887074, 0188127, 8715044, 1346452, 3364475, 12314816, 7627743, 5431143 ####[facility] [address] [place] [address] Anion gap [Moles/Vol] 13 mmol/L Normal 6-16 [facility] Comment on above: Performed By: #### 2 271357, 7006490, 0734343, 4939892, 5186556, 29831962, 4221938, 4778622 ####[facility] [address] [place] [address] AST [Catalytic activity/Vol] 91 Int._Unit/L High 5-43 [facility] Comment on above: Performed By: #### 2 427159, 5290479, 6065510, 4132337, 0823700, 02939388, 9764365, 4745193 ####[facility] [address] [place] [address] Bilirubin [Mass/Vol] 7.8 mg/dL High 0.0-1.1 [facility] Comment on above: Performed By: #### 2 769108, 4925115, 5130850, 4138538, 0268725, 32314220, 8112033, 2806599 ####[address] [place] [address] Calcium [Mass/Vol] 9.2 mg/dL Normal 8.9-11.1 [facility] Comment on above: Performed By: #### 2 568254, 0055996, 8429540, 0793130, 4327275, 54573258, 7396226, 4839943 ####[facility] [place] [address] Chloride [Moles/Vol] 99 mmol/L Low 101-111 [facility] Comment on above: Performed By: #### 2 016048, 3028196, 8914599, 2509552, 4166128, 03335056, 6987680, 0212635 ####[facility] [address] [place] [address] CO2 [Moles/Vol] 25 mmol/L Normal 21-31 [facility] Comment on above: Performed By: #### 2 110842, 8553414, 6137897, 5124955, 9194814, 32694553, 3824262, 9966339 ####[facility] [address] [place] [address] Creatinine [Mass/Vol] 0.7 mg/dL Normal 0.5-1.3 [facility] Comment on above: Performed By: #### 2 396346, 8565155, 0676178, 3726790, 5735303, 84866975, 3779794, 7350571 ####[facility] [address] [place] [address] Globulin (S) [Mass/Vol] 3.4 g/dL Normal 1.4-4.0 [facility] Comment on above: Performed By: #### 2 381348, 3246674, 0004874, 8784938, 3752790, 47183788, 2829217, 3607742 ####[facility] [address] [place] [address] Glucose [Mass/Vol] 112 mg/dL Normal 55-199 [facility] Comment on above: Performed By: #### 2 663759, 8422681, 5200346, 1663967, 1109007, 71127693, 6235892, 9141308 ####[facility] [address] [place] [address] Potassium [Moles/Vol] 3.8 mmol/L Normal 3.5-5.3 [facility] Comment on above: Performed By: #### 2 751446, 7657176, 7081131, 0443375, 8961428, 11335336, 1267890, 2418040 ####[facility] [address] [place] [address] Protein [Mass/Vol] 7.0 g/dL Normal 6.0-7.8 [facility] Comment on above: Performed By: #### 2 723472, 6045544, 7820873, 6017635, 5520806, 33380688, 6702534, 6123896 ####[facility] [address] [place] [address] Sodium [Moles/Vol] 133 mmol/L Low 135-145 [facility] Comment on above: Performed By: #### 2 192603, 7770401, 7142243, 3110477, 1634160, 68363883, 0767313, 1735686 ####[facility] [address] [place] [address] Urea nitrogen [Mass/Vol] 8 mg/dL Normal 5-21 [facility] Comment on above: Performed By: #### 2 260212, 9721303, 6614148, 0627188, 2506887, 08918319, 7381884, 7234786 ####[facility] [address] [place] [address] Urea nitrogen/Creatinine [Mass ratio] 11 No Units Normal 10-20 [facility] Comment on above: Performed By: #### 2 766471, 1512122, 7212734, 1922259, 9051270, 87070181, 9360434, 9358171 ####[facility] [address] [place] [address] COAGULATIONOrdered By: Gideon Murillo on 12-21-2023 INR Coag (PPP) [Relative time] 1.81 {INR} Invalid Interpretation Code [facility] Auto Coag Comment on above: Interpretive Data: I NR results are specifically intended to assess patients stabilized on long-term Anticoagulation therapy suggested INR s Less Intensive Anticoagulation 2.0 3.0 Conventional Range 3.0 4.5 PT Coag (PPP) [Time] 20.4 s High 9.4 - 1 2.5 second(s) [facility] Comment on above: Interpretive Data: [...] were obtained from a study by Julito Najrea et al. prepared from 1437 samples obtained at 7 different centers using the same coagulation reagent and instrumentation as [facility]. Currently there are no coagulation studies available worldwide for children to 14 days, and no normal ranges. CRPon 12-21-2023 CRP [Mass/Vol] mg/L Normal <=1.9 [facility] Comment on above: Performed By: #### 2 143752, 1782330, 7571774, 7568071, 5144836, 03957377, 4545666, 2814343 ####[facility] [address] [place] [address] Consent for Treatmenton 12-06 Consent for Treatment [id number] IFF Normal [facility] Ferritinon 12-21-2023 Ferritin [Mass/Vol] 385 ng/mL High 24-336 [facility] Comment on above: Performed By: #### 2 567299, 202583287, 73336075, 8575905, 8703839, 718865190, 3087505, 6452533, 79013446, 5587206, 1538701, 7049991, 4673723864, 342501636, 0715463038, 2086760 ####[facility] [address] [place] [address] Folateon 12-21-2023 Folate [Mass/Vol] 19.8 ng/mL Normal >=6.7 [facility] Comment on above: Performed By: #### 2 966649, 418678934, 86076532, 6638479, 6543926, 691465771, 9164597, 2124682, 75717854, 1289826, 9658756, 6327130, 3023865275, 168477406, 8781168640, 7175209 ####[facility] [address] [place] [address] GGTon 12-21-2023 Gamma glutamyl transferase [Catalytic activity/Vol] 36 Int._Unit/L Normal 6-48 [facility] Comment on above: Performed By: #### 2 269018, 525584422, 88512190, 1796770, 4173251, 774734680, 0472751, 0782550, 98557911, 4792981, 5058686, 6423283, 1484979734, 875928968, 3001834633, 5181191 ####[facility] [address] [place] [address] HEMATOLOGYOrdered By: SYSTEM SYSTEM on 12-21-2023 Basophils/100 [...] Normal 4.0 - 11.0 E9/L Remisol Heme [id number] 12-21-2023 HbA1c (Bld) [Mass fraction] 4.0 % Normal <=5.9 [facility] Comment on above: Performed By: #### 2 795519, 493711134, 72877844, 0207358, 1633118, 548111558, 5849992, 2052873, 42977140, 5105768, 8144048, 3614679, 6085800186, 444227991, 7839433577, 0767585 ####[facility] [address] [place] [address] Ironon 12-21-2023 Iron [Mass/Vol] 269 microgram/dL High 35-[address] [facility] Comment on above: Performed By: #### 2 042298, 132476702, 00537275, 8096875, 6996246, 481370583, 3788629, 3504874, 13062730, 6795305, 8583711, 3825643, 6922881546, 249260093, 9288009414, 9863260 ####[facility] [address] [place] [address] Lipase Levelon 12-21-2023 Lipase [Catalytic activity/Vol] 19 U/L Normal 13-58 [facility] Comment on above: Performed By: #### 2 615950, 2185890, 6383965, 3968235, 9753557, 90522219, 2254620, 7534897 ####[facility] [address] [place] [address] Magnesiumon 12-21-2023 Magnesium [Mass/Vol] 1.6 mg/dL Normal 1.3-2.4 [facility] Comment on above: Performed By: #### 2 682536, 510924109, 26535269, 4653641, 2745565, 459712035, 7437113, 4356392, 86356806, 4496853, 1401364, 4348796, 6114313033, 876135200, 8248153561, 3743244 ####[facility] [address] [place] [address] PTon 12-21-2023 INR Coag (PPP) [Relative time] 1.81 {INR} Invalid Interpretation Code [facility] Comment on above: Result Comment: INR results are specifically intended to assess patients stabilized on long-term Anticoagulation therapy suggested INR?s ?Less Intensive Anticoagulation? 2.0 ? 3.0 Conventional Range 3.0 ? 4.5 Performed By: #### 2 563578, 3600977, 8281693, 3992784, 9295985, 31772932, 2810752, 2800600 ####[facility] [address] [place] [address] PT Coag (PPP) [Time] 20.4 second(s) High 9.4-12.5 [facility] Comment on above: Result Comment: 15 d [...] coagulation reagent and instrumentation as [facility]. Currently there are no coagulation studies available worldwide for children to 14 days, and no normal ranges. Performed By: #### 2 292042, 9327618, 5288216, 5402650, 1537782, 23930493, 9197019, 0396056 ####[facility] [address] [place] [address] Phosphoruson 12-21-2023 Phosphate [Mass/Vol] 3.6 mg/dL Normal 1.9-4.6 [facility] Comment on above: Performed By: #### 2 392913, 294728021, 57586006, 2738020, 0103692, 354531726, 8836950, 7695757, 49040838, 5767407, 5981914, 4493094, 5088522840, 629949320, 6432101128, 4637699 ####[facility] [address] [place] [address] Retic Counton 12-21-2023 Reticulocytes/100 RBC (Bld) 3.6 % High .5-2.2 [facility] Comment on above: Performed By: #### 2 249977, 912416920, 39689985, 5430076, 7116810, 451733958, 9473209, 2770352, 91811993, 2282634, 0467595, 4443792, 5532690365, 780057642, 6642263708, 5574546 ####[place] [address] [place] [address] TIBC Calculatedon 12-21-2023 Iron binding capacity [Mass/Vol] 288 microgram/dL Normal 250-400 [facility] Comment on above: Performed By: #### 2 317327, 491988740, 09606160, 7189323, 9556993, 692019659, 2682698, 7873240, 00032424, 8399578, 8691724, 8561906, 9012779507, 056929999, 1883943064, 3856143 ####[place] [place] [address] Transferrin [Mass/Vol] 206 mg/dL Normal 200-370 [facility] Comment on above: Performed By: #### 2 348018, 661407523, 19658865, 1920154, 6468976, 978315682, 6730183, 2096826, 40789761, 8318893, 3439986, 2433011, 9781040035, 807584705, 4458053238, 0077487 ####[address] [address] TSH With T4fr Reflexon 12-20 TSH Qn 1.64 m[IU]/L Normal 0.34-5.60 [facility] Comment on above: Performed By: #### 2 790760, 077698538, 14875634, 4108783, 0010542, 660449148, 2033785, 9162727, 36579499, 6734467, 2343199, 0373926, 3939230144, 664593457, 8150627231, 7623120 ####[place] [place] [place] [address] UA with Cult Rflxon 12-21-19 24 Bilirubin Ql (U) Negative Normal Negative [facility] Comment on above: Performed By: #### 4 990143296 ####[facility] [address] [facility] [place] [address] Clarity (U) Clear Normal Clear [facility] Comment on above: Performed By: #### 4 435351921 ####[facility] [address] [facility] [place] [address] Color (U) Yellow Normal Yellow [facility] Comment on above: Result Comment: Micr oscopic readings are only performed on those samples that meet specific criteria set forth by [facility]. Performed By: #### 4 036206648 ####[facility] [address] [place] [address] Glucose Ql (U) Negative Normal Negative [facility] Comment on above: Performed By: #### 4 [id number] ####[facility] [address] [facility] [place] [address] Hemoglobin Auto test strip (U) [Mass/Vol] Trace Abnormal Negative [facility] Comment on above: Performed By: #### 4 190725843 ####[facility] [address] [place] [address] Ketones Auto test strip Ql (U) Negative Normal Negative [facility] Comment on above: Performed By: #### 4 [id number] ####[facility] [address] [facility] [place] [address] Leukocyte esterase Auto test strip Ql (U) Negative Normal Negative [facility] Comment on above: Performed By: #### 4 795194656 ####[facility] [address] [place] [address] Nitrite Auto test strip Ql (U) Negative Normal Negative [facility] Comment on above: Performed By: #### 4 366924877 ####[facility] [address] [facility] [place] [address] pH (U) 6.5 [pH] Invalid Interpretation Code 5.0-9.0 [facility] Comment on above: Performed By: #### 4 461828053 ####[facility] [address] [place] [address] Protein Ql (U) Negative Normal Negative [facility] Comment on above: Performed By: #### 4 829508018 ####[facility] [address] [place] [address] Specific gravity (U) [Rel density] 1.009 Invalid Interpretation Code 1.005-1.030 [facility] Comment on above: Performed By: #### 4 000328175 ####[facility] [address] [place] [address]857 Urobilinogen (U) [Mass/Vol] Negative Normal Negative [facility] Comment on above: Performed By: #### 4 134909916 ####[facility] [address] [place] [address] Type of Urine collection method Cysto Normal [facility] Comment on above: Performed By: #### 4 059662965 ####[facility] [address] [place] [address]857 URINALYSISOrdered By: SYSTEM SYSTEM on 12-21-2023 Bilirubin Ql (U) Negative Normal Negativemg/dL [facility] UA Auto SS Clarity (U) Clear (12/21/23 1:21 PM) Normal Clear [facility] UA Auto SS Color (U) Yellow 1 (12/21/23 1:21 PM) Normal Yellow [facility] UA Auto SS Comment on above: Interpretive Data: M icroscopic readings are only performed on those samples that meet specific criteria set forth by [facility]. Glucose Ql (U) Negative Normal Negativemg/dL [...] Ql (U) Negative Normal Negativemg/dL [facility] UA Auto SS pH (U) 6.5 *NA* (12/21/23 1:21 PM) Invalid Interpretation Code 5.0 - 9.0 FT UA Auto SS Protein Ql (U) Negative Normal Negativemg/dL [facility] UA Auto SS Specific gravity (U) [Rel density] 1.009 *NA* (12/21/23 1:21 PM) Invalid Interpretation Code 1.005 - 1.030 [facility] UA Auto SS Urobilinogen (U) [Mass/Vol] Negative Normal Negativemg/dL [facility] UA Auto SS URINALYSISOrdered By: Karina Vela on 12-21-2023 UA Spec Desc Cysto (12/21/23 1:21 PM) Normal [facility] UA Auto SS Uric Acidon 12-21-2023 Urate (U) [Mass/Vol] 3.8 mg/dL Normal 2.2-7.4 [facility] Comment on above: Performed By: #### 2 770669, 606081206, 25814370, 2039843, 2725364, 959222818, 1549458, 7054826, 56381715, 7352153, 3698335, 7719407, 9465105270, 962920944, 7212601264, 9624249 ####[facility] [address] [place] [address] Vit B12on 12-21-2023 Cobalamin (Vitamin B12) [Mass/Vol] pg/mL Normal 50-1500 [facility] Comment on above: Performed By: #### 2 941946, 369528288, 67300558, 1323795, 6780305, 776014030, 6705886, 5277073, 86064393, 1185209, 5913096, 2452153, 7668224153, 174927010, 9995676263, 0084681 ####[facility] [address] [place] [address] Vitamin D 25 Hydroxyon 12-20 25-hydroxyvitamin D3 [Mass/Vol] 17.7 ng/mL Low 30.0-100.0 [facility] Comment on above: Performed By: #### 2 118672, 522387814, 85213640, 6305380, 7602289, 967654382, 9707179, 7594173, 96170013, 8922481, 5331236, 3953985, 9921579028, 002386034, 9231701246, 7392824 ####[facility] [address] [place] [address] eGFRon 12-21-2023 eGFR 120 mL/min/1.73 m2 Normal >=59 [facility] Comment on above: Order Comment: Order added by Discern Expert. Performed By: #### 2 151841, 6934207, 4510425, 8404383, 8069079, 16235635, 9893676, 9818376 ####[facility] [address] [place] [address] Physician Referralon 024 Physician Referral [id number] IFF Normal [facility] Discharge Instructionson Discharge Instructions [id number] Normal [facility] Inpatient Clinical Summaryon 12-14-2023 Inpatient Clinical Summary [place] [id number] Clinical Summary Person Information: Name: WILL RALPH Age: 38 Years : 1985 Sex: Male PCP: Loreta Padilla Marital Status: Single Race: White Ethnicity: Non- or Language: Fijian Visit Id: Visit Reason: STAT TRANSPORT, ALLERGIC REACTION Speciality: Acuity: Enc Type: Observation Med Service: Medical Arrival: 12/11/2023 09:05:01 Discharge: 12/13/2023 12:15:00 Dispo Type: Home (Routine DC) Address: [address] [place] [address] [place] [id number] Provider Notes: Diagnosis: 1:Intractable pain; 2:Cirrhosis; 3:Tobacco [...] Refills: 0. Misc Prescription (Misc DME Prescription) [place] SAP Dressing 4 x 4 dressing. Misc [...] pain. Refills: 0. potassium chloride (Potassium Chloride (Vpg-Yjbq-Itn M20) 20 mEq oral tablet, extended release) 1 Tablets By Mouth 2 times a day. Refills: 3. spironolactone (spironolactone 50 mg Tab) 1 Tablets By Mouth every day. sulfamethoxazole-trimet hoprim (Bactrim) By Mouth. taskes 3 times a week. Care Team Members: Attending Physician: Desi Mena MD Consulting Physician: Referring Physician: Follow up: With: Address: When: Loreta Cummings [address], [address], [employer] [address] [address] Business (1) Type Location Start Finish State Open [facility] 01/27/2024 9:40 AM 01/27/2024 10:00 AM Confirmed BADH Follow Up [facility] 05/12/2024 3:15 PM 05/12/2024 3:30 PM Confirmed Patient Education Information: Drug Allergy, Djlm-cs-Lawg; Chronic Back Pain; Cirrhosis Normal [facility] Inpatient Patient Summaryon 12-14-2023 Inpatient Patient Summary [address] [address] Patient Discharge Instructions PERSON INFORMATION Name: WILL RALPH Date of : 1985 Current Date: 12/14/2023 08:58:59 PHYSICIANS Admitting Physician: eDsi Mena MD Primary Care Physician: Loreta Padilla [...] up: With: Address: When: Loreta Cummings [address], [address], Med [address] [address] Business (1) In the event that this physician does not participate in your insurance network, please consult with your insurance company to find a nearby participating provider. Type Location Start Finish State FM Open [facility] Ian 01/27/2024 9:40 AM 01/27/2024 10:00 AM Confirmed BADH Follow Up [facility] 05/12/2024 3:15 PM 05/12/2024 3:30 [...] Dose: __ Misc Prescription (Misc DME Prescription) [place] SAP Dressing 4 x 4 dressing. Last [...] __Next Dose: __ potassium chloride (Potassium Chloride (Qno-Ptol-Frx M20) 20 mEq oral tablet, extended release) [...] By Mout (more content not included)... Normal [facility] Population [facility] 12-14-19 Population Health Case Information Case Priority: [...] Oral, q6hr, PRN, Not taking Potassium Chloride (Wha-Japz-Cog M20) 20 mEq oral tablet, extended release, [...] Outbound Duration (more content not included)... Normal [facility] BMPon 12-13-2023 Anion gap [Moles/Vol] 8 mmol/L Normal -16 [facility] Comment on above: Performed By: #### 2 046452, [id number] ####[facility] [address] [place] [address] Calcium [Mass/Vol] 8.0 mg/dL Low 8.9-11.1 [facility] Comment on above: Performed By: #### 2 296862, 59146279 ####[facility] [address] [place] [address] Chloride [Moles/Vol] 105 mmol/L Normal 101-111 [facility] Comment on above: Performed By: #### 2 330019, 55723794 ####[facility] [address] [place] [address] CO2 [Moles/Vol] 26 mmol/L Normal 21-31 [facility] Comment on above: Performed By: #### 2 800493, 93328644 ####[facility] [address] [place] [address] Creatinine [Mass/Vol] 0.5 mg/dL Normal 0.5-1.3 [facility] Comment on above: Performed By: #### 2 832896, 27726129 ####[facility] [address] [place] [address] Glucose [Mass/Vol] 97 mg/dL Normal 55-199 [facility] Comment on above: Performed By: #### 2 129253, 65270585 ####[facility] [address] [place] [address] Potassium [Moles/Vol] 4.5 mmol/L Normal 3.5-5.3 [facility] Comment on above: Performed By: #### 2 408608, 11945688 ####[facility] [address] [place] [address] Sodium [Moles/Vol] 134 mmol/L Low 135-145 [facility] Comment on above: Performed By: #### 2 220057, 54160460 ####[facility] [address] [place] [address] Urea nitrogen [Mass/Vol] 9 mg/dL Normal 5-21 [facility] Comment on above: Performed By: #### 2 437130, 72258968 ####[facility] [address] [place] [address] Urea nitrogen/Creatinine [Mass ratio] 18 No Units Normal 10-20 [facility] Comment on above: Performed By: #### 2 279903, 95341158 ####[facility] [address] [place] [address] CHEMISTRYOrdered By: SYSTEM SYSTEM on 12-13-2023 Anion [...] 5 mg Tab) potassium chloride (Potassium Chloride (Atl-Cato-Tnj M20) 20 mEq oral tablet, extended release) [...] With: John ALBERTS, Loreta Zuniga Where: [facility] Primary [facility] Normal [address] [place] [address]- \\.br\\ New Follow Up Appointments after Discharge\\.br \\ Follow Up with Loreta Cummings When: In 0 days\\.br\\ Where:\\.br\\ [address]\\.[address]\\ [address]\\.br\\ [place] [address]-\\.br\\ Business (1)\\.br\\ Medications\\.br \\ What How Much When Why Instructions Next Dose\\.br\\ Unchanged folic acid (folic acid 1 mg Tab) 1 Tablets By Mouth Every day 12/14/2023 @ 9am\\.br\\ Unchanged furosemide (furosemide 20 mg Tab) 1 Tablets By Mouth Every day 12/14/2023 @ 9am\\.br\\ Unchanged lactulose (lactulose 10 g/ 15 mL Oral Syrup) 30 Milliliter By Mouth 4 times a day 12/13/2023 @ 2pm\\.br\\ Unchanged lidocaine topical (lidocaine Top 5% film Patch) 1 Patches Topical Every day Abscess of left leg excluding foot apply 12 hours on and 12 hours off daily remove patches after 12 hours may substitute for 4 % patches if insurance coverage issue 12/14/2023 @ 9am\\.br\\ Unchanged Misc Prescription (BP cuff device and appropriate size please) See instructions HTN (hypertension) BP Device/ machine and cuff (size appropriate) \\.br\\ Unchanged Misc Prescription (Misc DME Prescription) See instructions [place] SAP Dressing 4 x 4 dressing \\.br\\ Unchanged Misc Prescription (Misc DME Prescription) See instructions LiquidIV hydration \\.br\\ Unchanged Misc Prescription (Misc DME Prescription) See instructions Muscle & joint balm CBD 880mg \\.br\\ Unchanged multivitamin (Tab-A-Scott oral tablet) 1 Tablets By Mouth Every day 12/14/2023 @ 9am\\.br\\ Unchanged mycophenolate mofetil (mycophenolate mofetil 500 mg oral tablet) 1 Tablets By Mouth 2 times a day 12/13/2023 @ 9pm\\.br\\ Unchanged naloxone (Narcan 4 mg/ 0.1 mL nasal spray) 4 Milligram Nasal Inhalation As Directed Pain for suspected overdose symptoms \\.br\\ Unchanged ondansetron (Zofran ODT 4 mg Tab) 1 Tablets By Mouth 3 times a day as needed for Nausea Nausea 3 times a day as needed for Nausea\\.br\\ Unchanged oxycodone (oxyCODONE 5 mg Tab) 0.5 tab By Mouth Every 6 hours as needed for for pain Peripheral vascular disease Leg pain for leg pain Every 6 hours as needed for for pain, cannot take next dose till 12/13/2023 @ 12pm\\.br\\ Unchanged potassium chloride (Potassium Chloride (Mgw-Gsum-Jop M20) 20 mEq oral tablet, extended release) 1 Tablets By Mouth 2 times a day 12/13/2023 @ 9pm\\.br\\ Unchanged spironolactone (spironolactone 50 mg Tab) 1 Tablets By Mouth Every day 12/14/2023 @ 9am\\.br\\ Unchanged sulfamethoxazol e-trimethoprim (Bactrim) By Mouth taskes 3 times a week resume home dose schedule\\.br\\ Test Results\\.br\\ CBC \\.br\\ BMP \\.br\\ WBC: 5.3 E9/L (12/11/23 09:31:00)\\.br\\ Glucose Lvl: 97 mg/dL (12/13/23 07:28:00)\\.br\\ RBC: 3.1 E12/L Low (12/11/23 09:31:00)\\.br\\ BUN: 9 mg/dL (12/13/23 07:28:00)\\.br\\ HGB: 11.3 gm/dL Low (12/11/23 09:31:00)\\.br\\ Creatinine: 0.5 mg/dL (12/13/23 07:28:00)\\.br\\ Hct: 32.9 % Low (12/11/23 09:31:00)\\.br\\ BUN/Creat Ratio: 18 (12/13/23 07:28:00)\\.br\\ MCV: 105.2 fL High (12/11/23 09:31:00)\\.br\\ Sodium Lvl: 134 mmol/L Low (12/13/23 07:28:00)\\.br\\ MCH: 36.2 pg High (12/11/23 09:31:00)\\.br\\ Potassium Lvl: 4.5 mmol/L (12/13/23 07:28:00)\\.br\\ MCHC: 34.4 gm/dL (12/11/23 09:31:00)\\.br\\ Chloride: 105 mmol/L (12/13/23 07:28:00)\\.br\\ RDW: 15.9 % High (12/11/23 09:31:00)\\.br\\ CO2: 26 mmol/L (12/13/23 07:28:00)\\.br\\ Platelet: 71 E9/L Low (12/11/23:31:00)\\.br\\ AGAP: 8 mEq/L (12/13/23 07:28:00)\\.br\\ MPV: 8.8 fL (12/11/23 09:31:00)\\.br\\ Calcium Lvl: 8 mg/dL Low (12/13/23 07:28:00)\\.br\\ Allergies\\.br\\ Definity (Back Pain)\\.br\\ amoxicillin (Unknown)\\.br\\ penicillin (unknown)\\.br\\ Problems\\.br\\ Ongoing - Any problem that you are currently receiving treatment for.\\.br\\ Abscess of left leg excluding foot\\.br\\ Alcohol use disorder in remission\\.br\\ Anemia\\.br\\ Cellulitis of leg, right\\.br\\ Cirrhosis\\.br\\ Dependent edema\\.br\\ Elevated blood pressure reading\\.br\\ Elevated fasting glucose\\.br\\ Elevated INR\\.br\\ Elevated liver enzymes\\.br\\ Esophageal varices\\.br\\ Headache\\.br\\ HTN (hypertension)\\ .br\\ Hypokalemia\\.br \\ Intractable pain\\.br\\ Liver cirrhosis, alcoholic\\.br\\ Megaloblastic anemia\\.br\\ Nausea\\.br\\ Portal venous hypertension\\.b r\\ Smokeless tobacco use\\.br\\ Thrombocytopeni a\\.br\\ Tobacco user\\.br\\ Varicose veins of legs\\.br\\ Venous ulcer of right leg\\.br\\ Historical - Any problem that you are no longer receiving treatment for.\\.br\\ Denies\\.br\\ Heavy alcohol use\\.br\\ Education Materials\\.br\\ Drug Allergy\\.br\\ A drug allergy is when your body reacts in a bad way to a medicine. The reaction may be mild or very bad. In some cases, it can be life-threatenin g.\\.br\\ If you have an allergic reaction, get help right away. You should get help even if the reaction seems mild.\\.br\\ What are the causes?\\.br\\ This condition is caused by a reaction in your body's defense system. The system sees a medicine as being harmful when it is not.\\.br\\ What are the signs or symptoms?\\.br\\ Symptoms of a mild reaction\\.br\\ ? \\.br\\ A stuffy nose.\\.br\\ ? \\.br\\ Tingling in your mouth.\\.br\\ ? \\.br\\ An itchy, red rash.\\.br\\ Symptoms of a very bad reaction\\.br\\ ? \\.br\\ Swelling of your eyes, lips, face, tongue, mouth or back of your throat.\\.br\\ ? \\.br\\ Itchy, red, swollen areas of skin.\\.br\\ ? \\.br\\ Feeling dizzy or light-headed.\\. br\\ ? \\.br\\ Feeling mixed up.\\.br\\ ? \\.br\\ Pain in your belly.\\.br\\ ? \\.br\\ Trouble with breathing, talking, or swallowing.\\.br \\ ? \\.br\\ A tight feeling in your chest.\\.br\\ ? \\.br\\ Fast heartbeat.\\.br\\ ? \\.br\\ Vomiting or watery poop (diarrhea).\\.br \\ How is this treated?\\.br\\ There is no cure for allergies. An allergic reaction can be treated with:\\.br\\ ? \\.br\\ Medicines to help your symptoms.\\.br\\ ? \\.br\\ Medicines that you breathe into your lungs (respiratory inhalers).\\.br\\ ? \\.br\\ A shot for a very bad allergic reaction (epinephrine).\\ .br\\ For a very bad reaction, you may need to stay in the hospital. Your doctor may teach you how to use an allergy kit and how to give yourself an allergy shot. You can give yourself an allergy shot with what is called an auto-injector pen. \\.br\\ Follow these instructions at home:\\.br\\ If you have a very bad allergy:\\.br\\ \\.br\\ ? \\.br\\ Always keep an allergy pen or your kit with you. This could save your life. Use it as told by your doctor.\\.br\\ ? \\.br\\ Make sure that you, the people who live with you, and your employer know how to use your allergy pen or kit.\\.br\\ ? \\.br\\ If you used your allergy pen or kit:\\.br\\ ? \\.br\\ Get more medicine for it right away. This is important in case you have another reaction.\\.br\\ ? \\.br\\ Get help right away.\\.br\\ ? \\.br\\ Wear a medical alert bracelet or necklace that says you have an allergy, if your doctor tells you to do this.\\.br\\ General instructions\\.b r\\ ? \\.br\\ Avoid medicines that you are allergic to.\\.br\\ ? \\.br\\ Take hywc-aoz-tfbgsn r and prescription medicines only as told by your doctor.\\.br\\ ? \\.br\\ If you were given allergy medicines, do not drive until your health care provider tells you it is safe.\\.br\\ ? \\.br\\ If you have hives or a rash:\\.br\\ ? \\.br\\ Use nakc-ule-rgylej r medicines as told by your doctor.\\.br\\ ? \\.br\\ Put cold, wet cloths on your skin.\\.br\\ ? \\.br\\ Take baths or showers in cool water. Avoid hot water.\\.br\\ ? \\.br\\ [facility] Monitor Recordon 12-13-2023 Monitor Record [id number]#1.00 TIFF Normal [facility] Patient Education - Texton 0 12-13-2023 Patient [...] provider before taking any new medicines, including nlck-vsu-owdqlom medicines such as NSAIDs. ? Rest as needed. ? Eat a well-balanced diet. ? Limit your salt or water intake, if your health care provider asks you to do this. ? Do not drink alcohol. This is especially important if you routinely take acetaminophen. ? Keep all f (more content not included)... Normal [facility] eGFRon 12-13-2023 eGFR 133 mL/min/1.73 m2 Normal >=59 [facility] Comment on above: Order Comment: Order added by Discern Expert. Performed By: #### [id number] ####Paulino [facility] [id number] [place] [address] CHEMISTRYOrdered By: SYSTEM SYSTEM on 12-11-2023 Anion [...] - 11.0 E9/L Rem[facility]e URINALYSISOrdered By: PageUp People SYSTEM on 12-11-2023 Color (U) Yellow 1 (12/11/23 9:36 AM) Normal Yellow [facility] UA Auto SS Comment on above: Interpretive Data: M icroscopic readings are only performed on those samples that meet specific criteria set forth by [facility]. Glucose (U) [Mass/Vol] Negative Normal Negativemg/dL [...] Auto SS Work Phone: Progress Noteson 10-01-2023 Signal Timer Authentication Interface Message Text Hematology AND Oncology [...] B27 positive) 2003 Followed with Rheum at [facility] Open fracture of other and [...] min Stress: Stress Concern Present (02/27/2023) [place] [facility] - Occupational Stress Questionnaire Feeling of Stress : Very much Social Connections: Socially Isolated (02/27/2023) Social Connection and Isolation Panel [NHANES] Frequency of Communication with Friends and Family: More than three times a week Frequency of Social Gatherings with Friends and Family: Patient refused Attends Buddhism Services: Never Active Member of Clubs or [...] tab (more content not included)... Normal [facility] CHEMISTRYOrdered By: Huber Jha on 07-24-2023 Albumin DL <= 20 mg/L (U) [Mass/Vol] microgram/mL Normal 0.0 - 19.0 mcg/mL [facility] Albumin Elph (U) [Mass fraction] mg/dL Invalid Interpretation Code [facility] Comment on above: Interpretive Data: T he reference range and other method performance specifications have not been established for this test; results should be integrated into the clinical context for interpretation. Creatinine (U) [Mass/Vol] 22.5 mg/dL Invalid Interpretation Code [facility] Comment on above: Interpretive Data: T he reference range and other method performance specifications have not been established for this test; results should be integrated into the clinical context for interpretation. U Prot/Creat Ratio [facility] Invalid Interpretation Code 0.00 - 200.00 [facility] Basic metabolic 2000 panelon 04-21-2023 Anion gap [Moles/Vol] 12 mmol/L 10 - 20 [facility] Calcium [Mass/Vol] 8.6 mg/dL 8.4 - 10. 4 mg/dL [facility] Chloride [Moles/Vol] 104 mmol/L 97 - 111 mmol/L [facility] CO2 [Moles/Vol] 26 mmol/L 21 - 30 mmol/L [facility] Creatinine [Mass/Vol] 0.52 mg/dL Low 0.80 - 1.30 mg/dL [facility] GFR/1.73 sq M.predicted MDRD (S/P/Bld) [Vol rate/Area] 132 mL/min/{1.73_m2} - PINF [facility] Comment on above: 2020 CKD EPI Equatio [...] Inclusion of Race in Diagnosing Kidney Disease. [employer] Journal of Kidney Diseases 202;79(2):268-88.e1. 2. N Engl J Med 2020 Vol. 385 Issue 19 Pages 4035-8961 Glucose [Mass/Vol] 80 mg/dL 68 - 110 [...] [Mass/Vol] mg/dL Low 36 - 220 mg/dL [facility] Interpretation and review of laboratory results Abnormal [facility] HEPATIC FUNCTION PANELon Albumin [Mass/Vol] 3.2 g/dL Low 3.4 - 5.1 g/dL [facility] ALP [Catalytic activity/Vol] 284 U/L High [facility] ALT [Catalytic activity/Vol] 38 U/L [facility] AST [Catalytic activity/Vol] 70 U/L High [facility] Bilirubin [Mass/Vol] 7.5 mg/dL High 0.1 - 1.5 mg/dL [facility] Bilirubin.direct [Mass/Vol] 1.89 mg/dL High 0.10 - 0.30 mg/dL [facility] Protein [Mass/Vol] 7.6 g/dL 6.2 - 8.3 g/dL [facility] LDHon 04-21-2023 LDH [Catalytic activity/Vol] 257 U/L High [facility] MANUAL DIFF AND MORPHon 04-07 Anisocytosis Ql (Bld) Slight [facility] Cells Counted Total (Bld) [#] [facility] Dacrocytes LM Ql (Bld) Few [facility] Ovalocytes LM Ql (Bld) Few [facility] Schistocytes LM Ql (Bld) Few [facility] Target cells LM Ql (Bld) Few [facility] No Panel InformationOrdered By: Yany Carrera on 04-21-2023 [facility] No Panel Informationon 04-21 Interpretation and review of laboratory results Abnormal [facility] RETICULOCYTE COUNTon 023 Immature reticulocytes/Total reticulocytes (Bld) 0.46 % 0.30 - 0.50 [facility] Interpretation and review of laboratory results Abnormal [facility] Reticulocytes (Bld) [#/Vol] 0.09 10*3/uL High [facility] Reticulocytes/100 RBC (Bld) 2.6 % High 0.5 - 1.5 % [facility] CHEMISTRYOrdered By: SYSTEM SYSTEM on 03-22-2023 [...] Normal 4.0 - 11.0 E9/L [facility] HemeAutoSS *SPECIMEN FOR SURGICAL PATHO LOGYOrdered By: Daniella Conde on 01-27-2023 Case Report Surgical Pathology Report Case: [id number] Authorizing Provider: Erica Rock MD Collected: 01/20/2023 6019 Ordering Location: [facility] Received: 01/20/2023 4839 Pathologist: Daniella Conde MD Specimen: Liver biopsy, Transvenous biopsy nontargeted [facility] Work Phone: Clinical Information [facility] Work Phone: Final Diagnosis [id number] bGF uZzEwMzNcZnRuYmpcdWMxIH tccnRmMVxlcGljMTAzMDVcd 0ico8hnvCKaMRFrf5sey7Xb dHBncGFyXGpleHBhbmRcbm9 0nBU8zT71JV7zVOXfZtV3OU YbjxD6Ofz3TSArKINwnVOmE 956d0mgu9nxwwPsqTW3JIOc AKWgH9UiPH4jCXUznWDaT20 peOMuJRE7WKZzJMGrrTHeNC FgVUR2OMQsvMBsJ7pcLZYkN O0ruvvjXLpgOEknOJHezIM7 QNChdIFeD9YhDZWmEWgrPNS qccu7OpEtAh4kgTNeqVqeKV juSRQqPQ8qm3raB7ZjwUXcX HBsYWluXGJcZnMyMCBBLiAi OUp1IJUfSYTxFE0ydyHapWe vvbTjlW8yv9ibOICjgirzCT mmTUUcg6zkN4DqgGNnXFKqJ BFIvTQrrX5ivJYwSXIbSBNA l80fHP56PIPrTCKxtXPxiTG uNXR6EGxdSADps6CpsHHpHF GruhegOURlJee0bOHWp07kS G26LevbJUz6pTMoIVDkYWAd dRrplY4jhLGaQdT8cERmE1o cgzvpe9qrUMzpPZ8sfWDsxf ofUF51VGtva6JzgK3htTQmj Bj8DRywQUTesGCaHGY9ZR6t TOAic9GeU5VyGKIKz0xqipT yIHdpdGggdGhlIHBhdGllbn AjfxKjjPB6b9H1UOC2oAIrD umbAUybV9HcPRYbECWyyCIu jHmpgBXxa8c7mYGflDSoaA3 xyYWvL9jddnucf5ygNiXsU0 KyXJKto2uwAEHiqwVhmFWxe vddSDSuzq46cF2jhOPtsNCu WFWzg8MdvObdCMjbygSkCAP ociSfX0r1tGHbmSCuLBygwu UjHABnCsTkqoqsUVM5w0lif GYxXHNzdGVjZjIyMDAwXGFu l2bxBLXuaXQkQrSqWuWpYjH hCbnicUUhXOIkQfYtp8ptl2 43fOCfo0ywZOVjCvH3aNDpR EAaaRHaB274HUQrWZpbq7in u3AaUEYgfDByn4E9TUHJmsg bjIb1fBanE51kh5Y0OveaR4 hmZGZwMDRuD5BgMG8lUSLeF dq3RDJ3RYC6DVZgHFb0GBih EUWtTFKpPnv5HYx7WSgypxC rMGjiulPdswRmBcc0NSUhD8 04CST8nUoza3ebZMZ4XQOgK EFlDrTdJb2waESoS273QSJz OKAISIMoiCx9NHGouuTmvjD ycQSXp640B289w5pnIKUfod BgxWcGpmtts0tkM731PXDmn GVydzEyMjQwXHBhcGVyaDE1 IGCgUW6sqbbpORjxNIkgOZF rjoE6YXMaoBLjR9LjNGLcTU 8kkzruDAJ4QVkgRSCqEBP5D yPlGRFjt6Chepv0GcOfun8x lj75FCF5z9GohDfuWQH1EWM 0GkXrFj9lkGRgBSHuQI3sHt IbcAXiXUUpjw95qOrpGPwrg zGhrS8wWoUlTNYkjSSnSPZi FN4ojOIyZAOstN9qdkbaJVV nYnJkcmhlYWRccGdicmRyZm 1qmIgbVZX9XZxdQ4mxlA4hY zU9ZYtiQ0enzO3iZAz6YUyg xRV6GUOqlE9kDD1mtlaju4o qHRbqIPjcZPUxmqX2dpP2BB KbrGAdL2FjoN1gXJAcKI0rg fmpq2dfEOC2SMfcZPCrAMS6 TmHkWJXcq3Uvxav6LbKnd4K qpROkXOuqA36pu819JJHyhu YaY5ewpNUadheieSNlomhsI OdcdnU8VFWuPDMbPIkiQDPa XGZzMjJcbGFuZzEwMzNcaGl jaFxmMVxkYmNoXGYxXGxvY2 hcZjFcZnMyMlxwYXJccGxha G7qAmQfIoGfTNcjTT9vGTEl E2akyYGjJMFqMTQmV3lfReP ckC9ckDyuKZkvvfQjKJGnYA P9sx3jrVLzzHf7OMJmK06eB RXHlOJzSefdF1ZoiFSfYOH9 yTVdBJ7CRV6mMJV8ClTpXgI wMjMuXHBhclxwYXJccGxhaW 3pEsNcVmTnFJwrEV8mDOWiI 7pdpRNqTKRzAUSdQ5atPjCp uS0wuFbhMHmwVrQkMmCwEYq uSMxoF6DoeUbrdNA4aTH5EN lfcIBni33cUFwnnJEmk49sz HM3HTXznFtxQRMuZYogi1Y1 aWMgZXZhbHVhdGlvbiBvZiB 1tMXdMERwanQjf5QhC3opLY 3qfnvyUO4dDObnqjNvzpNsW GVyZWQgdGhlIGZpbmFsIGRp IFyoi8XckeslyuuvJYrgbHI pblxmMVxmczIyXGxhbmcxMD FpNGbtQ1hsDvPvWPHwkLhdX Nkrw3VrCPMtFEHuJhSekMBm TJOdse06 [facility] Work Phone: Gross Description y9uhbUVtWWNzxKWhPRKq Nlx tjvLyVSJbsCGrJ1CsocrqPQ yqHI3tXW7efGpcyWQthQVfC ZNgLdXhs2zua656eDXva3lh TJZTdjhgxRb5aVmtJ67ll4F 3CkgpO53klRGsFTK7CMUyMK AyaNKwNFIfVYA7RJRhnYEoW 5boTPPwFC4ivxesUShxTMdm MPNcjCE6IJQcuCQlG9TaVVA bUCnzAZWbvhe0YeTzAb9jrJ VyeTcyMFxwYXJkXHBsYWluX JKnFsFjAC3eNKDleKOav5y3 lM2cILEgKVShOqpbwcOtXLK zu4XdjVJjSSHlszFHzKKqk5 KqR0wfOL7vvPLyayOpOBu0J ICjVuRau9actM0zMRIfiK5c yNNoD86dmMFnfaJtSNPiGWS kxLOjSFsznPombMH3oWQvxP duJC1cqBPkQB2yWPyhPNodr tLdb3YoOC68aCMtnqsbRH9f QAW7uhhqC6BsBE38gHFmvt1 vBDPxw9WtLBYiRATlfAYess VcpH0yc3nnTiVAkVUvw7CjH 5fpXG5gS58rw6rogZOmq6Ik GhD3HH9fwfEkXIhjUAKcxwE yCcsejNYpUDPezHVrd4VmcT 8zXMGcTUSoeBGzcoOiJG74E HApGNzdTPqehsk3kULlmaTr dGhlIDAuMSBjbSBpbiBkaWF hQOBtbg8nOAldMXQgFDNsdG UlPWdsLVE4Tq4pwDBzRQQav jY4c2PsPWzpIL3lVVWoIWLy MAS9RX0qJmMxIEBmnpldHMV tt4OjdNCybP== [facility] Work Phone: [employer] w9rafPNdWKNkePLmHKFb NVx onbDgHGYavWHmA7IxxlwoSE nyFO8yNI2dqQoqcMCwyBNtH EOaBxFjp5wwi778nEMmg6xk RLRVhjqqhIi2bFhtN61rh0N 4OxunE15dcLXnJHJ6TPBuCZ ZdrBAyLDXrUVB0MNDnuFGdC 1vrXZMkUH7ffqwfPZkjGJcb MPTzzLG5RYPmgHGeW3YkSUD hFEhtPLEtzyg0ArQqYe3jxR VyeTcyMFxwYXJkXHBsYWluX QQqOeBmUJ5xVRbkeIBbbERx xSV6uL2nGM7iMHDzbfbzZGH sMyo6fXZGvJYeyfk8xFPzYh keLSMoyZVhSGRunQXkwl8wE KfuTGQnHDilV0awrPikzULw Y5mbqynho7lyISJmqkduULU DBu1ELcCiCaVyIcLzOLQxzh IeFh8vGVcbuOLsY9i5x2ZvC NJiyAYeI9ljRbMzXEVdsZPn ICCuOPXhjmrvUNYdTJorM3G oSJBdJNRsxc9zFLBxuzrvTW JkXHBhcn0= [facility] Work Phone: [facility] Work Phone: [...] wedged hepatic: 32. Moderate sedation intraservice time 8915-7384 FLUOROSCOPIST: ERICA ROCK FLUORO TIME: 41.6 Minutes [...] microaccess catheter under fluoroscopic guidance. A 10 [place] curved tip renal vein sheath was then advanced over the wire into the right atrium. The obturator was removed and a 5 [place] MPB catheter was used to select the [...] vein was again selected with a 5 [place] MPB catheter which was then exchanged over an Amplatz wire for the 10 [place] venous sheath. This was repeated several times for attempted transvenous liver biopsy through the right hepatic vein; however, the 10 [place] sheath withdrew during attempted advancement of the biopsy catheter. The 10 [place] venous sheath was then withdrawn into the intrahepatic IVC. The middle hepatic vein was selected with the same 5 [place] catheter which was then exchanged over an Amplatz wire for the 10 [place] venous sheath. The 10 [place] transvenous biopsy catheter was then advanced into the middle hepatic venous sheath and deployed twice for liver biopsy. The transvenous biopsy catheter and a 10 [place] venous sheath were removed. Satisfactory hemostasis was [...] wedged hepatic: 32. Moderate sedation intraservice time 0703-1770 FLUOROSCOPIST: ERICA ROCK FLUORO TIME: 41.6 Minutes [...] microaccess catheter under fluoroscopic guidance. A 10 [place] curved tip renal vein sheath was then advanced over the wire into the right atrium. The obturator was removed and a 5 [place] MPB catheter was used to select the [...] vein was again selected with a 5 [place] MPB catheter which was then exchanged over an Amplatz wire for the 10 [place] venous sheath. This was repeated several times for attempted transvenous liver biopsy through the right hepatic vein; however, the 10 [place] sheath withdrew during attempted advancement of the biopsy catheter. The 10 [place] venous sheath was then withdrawn into the intrahepatic IVC. The middle hepatic vein was selected with the same 5 [place] catheter which was then exchanged over an Amplatz wire for the 10 [place] venous sheath. The 10 [place] transvenous biopsy catheter was then advanced into the middle hepatic venous sheath and deployed twice for liver biopsy. The transvenous biopsy catheter and a 10 [place] venous sheath were removed. Satisfactory hemostasis was [...] pressures and increased portosystemic gradient. MACRO: None [facility] No Panel Informationon 01-20 Radiology Study observation (narrative) [facility] PROTHROMBIN TIME AND INRon 0 01-20-2023 INR Coag (PPP) [Relative time] 2.49 {INR} High 0.90 - 1.10 [facility] Interpretation and review of laboratory results Abnormal [facility] PT Coag (PPP) [Time] 27.9 s High [facility] Basic metabolic 2000 panelon 01-12-2023 Anion [...] Inclusion of Race in Diagnosing Kidney Disease. [employer] Journal of Kidney Diseases 202;79(2):268-88.e1. 2. N Engl J Med 2020 Vol. 385 Issue 19 Pages 9430-9671 Glucose [Mass/Vol] 82 mg/dL 68 - 110 mg/dL [facility] Potassium [Moles/Vol] 3.5 mmol/L 3.3 - 5.3 mmol/L [facility] Sodium [Moles/Vol] 139 mmol/L 135 - 148 mmol/L [facility] Urea nitrogen [Mass/Vol] 4 mg/dL Low 8 - 22 mg/dL [facility] C-PEPTIDE, SERUMon C peptide [Mass/Vol] 3.52 ng/mL 0.81 - 3.85 ng/mL [facility] Interpretation and review of laboratory results Normal [facility] CBC panel Auto (Bld)on 01-12 Erythrocyte distribution width (RBC) [Ratio] 15.7 % High 11.5 - 14.5 % [facility] Hematocrit (Bld) [Volume fraction] 35.4 % Low 41.0 - 53.0 % [facility] Hemoglobin (Bld) [Mass/Vol] 12.1 g/dL Low 13.9 - 16.3 g/dL [facility] Interpretation and review of laboratory results [...] 6.6 10*3/uL 4.5 - 11.5 K/uL [facility] Diabetes tracking panelOrder ed By: Moi Christianson on 01-12-2023 Average glucose Estimated from glycated hemoglobin (Bld) [Mass/Vol] 82 mg/dL [facility] HbA1c (Bld) [Mass fraction] 4.5 % 4.0 - 5.6 % [facility] HEPATIC FUNCTION PANELon Albumin [Mass/Vol] 3.2 g/dL Low 3.4 - 5.1 g/dL [facility] ALP [Catalytic activity/Vol] 336 U/L High [facility] ALT [Catalytic activity/Vol] 43 U/L High [facility] AST [Catalytic activity/Vol] 73 U/L High [facility] Bilirubin [Mass/Vol] 8.2 mg/dL High 0.1 - 1.5 mg/dL [facility] Bilirubin.direct [Mass/Vol] 2.28 mg/dL High 0.10 - 0.30 mg/dL [facility] Protein [Mass/Vol] 7.9 g/dL 6.2 - 8.3 g/dL [facility] INSULINon 01-12-2023 Insulin Free Qn 38.9 High [facility] th Interpretation and review of laboratory results Abnormal [facility] No Panel Informationon 01-12 Interpretation and review of laboratory results Abnormal [facility] PROTHROMBIN TIME AND INRon 0 01-12-2023 INR Coag (PPP) [Relative time] 1.87 {INR} High 0.90 - 1.10 [facility] Interpretation and review of laboratory results Abnormal [facility] PT Coag (PPP) [Time] 21.0 s High [facility] ALPHA FETOPROTEIN TUMOR ANDRIA Jeri 11-13-2022 AFP 4.4 ng/mL NINF - 8.4 ng/mL [facility] Interpretation and review of laboratory results Normal [facility] Basic metabolic 2000 panelon 11-13-2022 Anion [...] MDRD (S/P/Bld) [Vol rate/Area] 134 mL/min/{1.73_m2} - [facility] Comment on above: 2020 CKD EPI Equatio [...] Inclusion of Race in Diagnosing Kidney Disease. [employer] Journal of Kidney Diseases 202;79(2):268-88.e1. 2. N Engl J Med 2020 Vol. 385 Issue 19 Pages 4130-3196 Glucose [Mass/Vol] 70 mg/dL 68 - 110 [...] (Bld) 63.2 % 31.0 - 76.0 % [facility] Platelet mean volume (Bld) [Entitic vol] 8.2 fL 7.5 - 11.2 fL [facility] Platelets (Bld) [#/Vol] 82 10*3/uL Low 150 - 400 K/uL [facility] RBC (Bld) [#/Vol] 2.69 10*6/uL Low [facility] WBC (Bld) [#/Vol] 5.7 10*3/uL 4.5 - 11.5 K/uL [facility] DIRECT ANTIGLOBULIN TESTon 0 11-13-2022 Direct antiglobulin test.poly specific reagent Ql (RBC) Negative [facility] HAPTOGLOBINon 11-13-2022 Haptoglobin [Mass/Vol] mg/dL Low 36 - 220 mg/dL [facility] Interpretation and review of laboratory results Abnormal [facility] HEPATIC FUNCTION PANELon Albumin [Mass/Vol] 2.9 g/dL Low 3.4 - 5.1 g/dL [facility] ALP [Catalytic activity/Vol] 386 U/L High [facility] ALT [Catalytic activity/Vol] 36 U/L [facility] AST [Catalytic activity/Vol] 68 U/L High [facility] Bilirubin [Mass/Vol] 6.9 mg/dL High 0.1 - 1.5 mg/dL [facility] Bilirubin.direct [Mass/Vol] 1.88 mg/dL High 0.10 - 0.30 mg/dL [facility] Protein [Mass/Vol] 7.0 g/dL 6.2 - 8.3 g/dL [facility] LDHon 11-13-2022 LDH [Catalytic activity/Vol] 255 U/L High [facility] No Panel Informationon 11-13 Interpretation and review of laboratory results Abnormal [facility] Interpretation and review of laboratory results Abnormal [facility] PROTHROMBIN TIME AND INRon 0 11-13-2022 INR Coag (PPP) [Relative time] 1.71 {INR} High 0.90 - 1.10 [facility] Interpretation and review of laboratory results Abnormal [facility] PT Coag (PPP) [Time] 19.2 s High [facility] RETICULOCYTE COUNTon 023 Immature reticulocytes/Total reticulocytes (Bld) [...] specimen(s) and have rendered the final diagnosis(es). [facility] Work Phone: [facility] Work Phone: Basic metabolic 2000 panelon 08-25-2022 [...] (S/P/Bld) [Vol rate/Area] 131 mL/min/{1.73_m2} - PINF [facility] Comment on above: 2020 CKD EPI [...] Inclusion of Race in Diagnosing Kidney Disease. [employer] Journal of Kidney Diseases 2021;79(2):268-88.e1. 2. N Engl J Med 2020 Vol. 385 Issue 19 Pages 4223-0116 Glucose [Mass/Vol] 55 mg/dL Low 68 - 110 mg/dL [facility] Potassium [Moles/Vol] 3.3 mmol/L 3.3 - [...] 3.0 g/dL Low 3.4 - 5.1 g/dL [facility] ALP [Catalytic activity/Vol] 389 U/L High [...] [Mass/Vol] 7.2 g/dL 6.2 - 8.3 g/dL [facility] Transferrin [Mass/Vol] 177 mg/dL Low 210 - 375 mg/dL [facility] Laboratory - Serology - non- microon 08-25-2022 Immune complex.IgG [Mass/Vol] 1995 mg/dL High 768 - 1632 mg/dL [facility] No Panel Informationon 08-25 Interpretation and review of laboratory results Abnormal [facility] Interpretation and review of laboratory results Abnormal [facility] Interpretation and review of laboratory results Abnormal [facility] XR Knee - right Viewson 12-0 [...] the calcaneus anteriorly. Right knee MACRO: None [facility] Radiology Study observation (narrative) [facility] XR Knee - right ViewsOrdered By: Colby Mcintosh on 08-15-2022 [facility] Work Phone: Basic metabolic 2000 panelon 08-14-2022 [...] Inclusion of Race in Diagnosing Kidney Disease. [employer] Journal of Kidney Diseases 202;79(2):268-88.e1. 2. N Engl J Med 1 Vol. 385 Issue 19 Pages 4825-1188 Glucose [Mass/Vol] 89 mg/dL 68 - 110 mg/dL [facility] Potassium [Moles/Vol] 3.0 mmol/L Low 3.3 - 5.3 mmol/L [facility] Sodium [Moles/Vol] 132 mmol/L Low 135 - 148 mmol/L [facility] Urea nitrogen [Mass/Vol] 5 mg/dL Low 8 - 22 mg/dL [facility] - Chemistry and C hemistry - challengeon 08-14-2022 Urate [Mass/Vol] 1.9 mg/dL Low 2.0 - 7.3 mg/dL [facility] Albumin [Mass/Vol] 2.9 g/dL Low 3.4 - 5.1 g/dL [facility] ALP [Catalytic activity/Vol] 245 U/L High [...] Interpretation and review of laboratory results Abnormal [facility] No Panel Informationon 08-14 Interpretation and review of laboratory results Abnormal [facility] Interpretation and review of laboratory results Abnormal [facility] Interpretation and review of laboratory results Normal [facility] Interpretation and review of laboratory results Abnormal [facility] A negative leukocyte esterase AND negative nitrite [...] (positive predictive value for UTI around 50%) [facility] US.doppler Lower extremity v ein [...] extremity deep venous thrombosis identified. MACRO: None [facility] Radiology Study observation (narrative) [facility] US.doppler Lower extremity v ein - rightOrdered By: Enrique Basurto on 08-14-2022 [facility] Work Phone: Basic metabolic 2000 panelon 05-06-2022 Anion gap [Moles/Vol] 11 mmol/L 10 - 20 [facility] Calcium [Mass/Vol] 8.9 mg/dL 8.4 - 10. 4 mg/dL [facility] Chloride [Moles/Vol] 105 mmol/L 97 - 111 mmol/L [facility] CO2 [Moles/Vol] 25 mmol/L 21 - 30 mmol/L [facility] Creatinine [Mass/Vol] 0.58 mg/dL Low 0.8 - 1.3 mg/dL [facility] Comment on above: Grossly icteric; may falsely decrease creatinine GFR/1.73 sq M.predicted MDRD (S/P/Bld) [Vol rate/Area] 129 mL/min/{1.73_m2} - PINF [facility] Comment on above: 2020 CKD EPI [...] Inclusion of Race in Diagnosing Kidney Disease. [employer] Journal of Kidney Diseases 202;79(2):268-88.e1. 2. N Engl J Med 2020 Vol. 385 Issue 19 Pages 6791-9100 Glucose [Mass/Vol] 79 mg/dL 68 - 110 mg/dL [facility] Interpretation and review of laboratory results Abnormal [facility] Potassium [Moles/Vol] 3.6 mmol/L 3.3 - 5.3 mmol/L [facility] Sodium [Moles/Vol] 137 mmol/L 135 - 148 mmol/L [facility] Urea nitrogen [Mass/Vol] 3 mg/dL Low 8 - 22 mg/dL [facility] CBC WITH DIFFERENTIALOrdered By: Isak [...] 11.5 g/dL Low 13.9 - 16.3 g/dL [facility] Interpretation and review of laboratory results Abnormal [...] 4.2 10*3/uL Low 4.5 - 11.5 K/uL [facility] HAPTOGLOBINon 05-06-2022 Haptoglobin [Mass/Vol] mg/dL Low 36 - 220 mg/dL [facility] Interpretation and review of laboratory results Abnormal [facility] HEPATIC FUNCTION PANELon Albumin [Mass/Vol] 3.0 g/dL Low 3.4 - 5.1 g/dL [facility] ALP [Catalytic activity/Vol] 373 U/L High [facility] ALT [Catalytic activity/Vol] 47 U/L High [facility] AST [Catalytic activity/Vol] 87 U/L High [facility] Bilirubin [Mass/Vol] 8.3 mg/dL High 0.1 - 1.5 mg/dL [facility] Bilirubin.direct [Mass/Vol] 1.50 mg/dL High 0.1 - 0.3 mg/dL [facility] Protein [Mass/Vol] 6.7 g/dL 6.2 - 8.3 g/dL [facility] LDHon 05-06-2022 LDH [Catalytic activity/Vol] 270 U/L High [facility] No Panel Informationon 05-06 Interpretation and review of laboratory results Abnormal [facility] URIC ACIDon 05-06-2022 Interpretation and review of laboratory results Normal [facility] Urate [Mass/Vol] 3.2 mg/dL 2 - 7.3 mg/dL [facility] Basic metabolic 2000 panelon 03-13-2022 Anion gap [Moles/Vol] 11 mmol/L [facility] Calcium [Mass/Vol] 8.2 mg/dL Low 8.4 - 10. 4 mg/dL [facility] Chloride [Moles/Vol] 103 mmol/L 97 - 111 mmol/L [facility] CO2 [Moles/Vol] 25 mmol/L 21 - 30 mmol/L [facility] Creatinine [Mass/Vol] 0.51 mg/dL Low 0.80 - 1.30 mg/dL [facility] Comment on above: Grossly icteric; may falsely decrease creatinine GFR/1.73 sq M.predicted MDRD (S/P/Bld) [Vol rate/Area] 134 mL/min/{1.73_m2} >=60 mL/min/1.73sqm [facility] Comment on above: 2020 CKD EPI Equatio [...] Inclusion of Race in Diagnosing Kidney Disease. [employer] Journal of Kidney Diseases 202;79(2):268-88.e1. 2. N Engl J Med 1 Vol. 385 Issue 19 Pages 8426-0042 Glucose [Mass/Vol] 119 mg/dL High 68 - 110 mg/dL [facility] Interpretation and review of laboratory results Abnormal [facility] Potassium [Moles/Vol] 3.6 mmol/L 3.3 - 5.3 mmol/L [facility] Sodium [Moles/Vol] 135 mmol/L 135 - 148 mmol/L [facility] Urea nitrogen [Mass/Vol] 3 mg/dL Low 8 - 22 mg/dL [facility] CBC WITH DIFFERENTIALon Basophils (Bld) [#/Vol] [...] 9.9 g/dL Low 13.9 - 16.3 g/dL [facility] Interpretation and review of laboratory results Abnormal [...] 1.35 10*3/uL Low 1.50 - 8.00 K/uL [facility] Neutrophils/100 WBC (Bld) 34.2 % 31.0 - 76.0 % [facility] Platelet mean volume (Bld) [Entitic vol] 7.3 fL Low 7.5 - 11.2 fL [facility] Platelets (Bld) [#/Vol] 114 10*3/uL Low 150 - 400 K/uL [facility] RBC (Bld) [#/Vol] 2.81 10*6/uL Low [facility] WBC (Bld) [#/Vol] 4.0 10*3/uL Low 4.5 - 11.5 K/uL [facility] and C hemistry - challengeon 03-13-2022 Albumin [Mass/Vol] 2.6 g/dL Low 3.4 - 5.1 g/dL [facility] ALP [Catalytic activity/Vol] 278 U/L High [facility] ALT [Catalytic activity/Vol] 33 U/L [facility] AST [Catalytic activity/Vol] 68 U/L High [facility] Bilirubin [Mass/Vol] 5.6 mg/dL High 0.1 - 1.5 mg/dL [facility] Bilirubin.direct [Mass/Vol] 1.20 mg/dL High 0.10 - 0.30 mg/dL [facility] LDH [Catalytic activity/Vol] 258 U/L High [facility] Protein [Mass/Vol] 6.2 g/dL 6.2 - 8.3 g/dL [facility] Urate [Mass/Vol] 3.0 mg/dL 2.0 - 7.3 mg/dL [facility] Laboratory - Hematology and Cell countson 03-13-2022 Haptoglobin [Mass/Vol] mg/dL Low 36 - 220 mg/dL [facility] No Panel Informationon 03-13 Interpretation and review of laboratory results Abnormal [facility] Interpretation and review of laboratory results Abnormal [facility] Interpretation and review of laboratory results Normal [facility] CHEMISTRYOrdered By: SYSTEM SYSTEM on 02-17-2022 Lactate [Mass/Vol] 1.8 mmol/L Normal 0.5 - 2.2 mmol/L [facility] Remisol Albumin [Mass/Vol] 2.8 g/dL Low 3.3 [...] (02/17/22 1:14 PM) Normal Negative [facility] UA Auto SS Ketones (U) [Mass/Vol] Negative (02/17/22 1:14 PM) Normal Negative [facility] UA Auto SS [place].plasma/Lith[place] um.RBC (Bld) [Mass ratio] 0-3 /HPF Normal 0-3/HPF [facility] UA Auto SS Nitrite Ql (U) Negative (02/17/22 1:14 PM) Normal Negative [facility] UA Auto SS pH (U) 7.0 *NA* (02/17/22 1:14 PM) Invalid Interpretation Code 5.0 - 9.0 [facility] UA Auto SS Protein (U) [Mass/Vol] Negative (02/17/22 1:14 PM) Normal Negative [facility] UA Auto SS Specific gravity (U) [Rel density] <=1.005 *NA* (02/17/22 1:14 PM) Invalid Interpretation Code 1.005 - 1.030 [facility] UA Auto SS UA Spec Desc Clean Catch (02/17/22 1:14 PM) Normal [facility] UA Auto SS Urobilinogen Qn (U) [id number] {Alexey'U}/dL Normal 0.0 - 1.0 EU/dL [facility] UA Auto SS WBC Auto Ql (U) Negative (02/17/22 1:14 PM) Normal Negative [facility] UA Auto SS WBC LM.HPF (Urine sed) [#/Area] 0-5 /HPF Normal 0-5/HPF [facility] UA Auto SS Basic metabolic 2000 panelon [...] Inclusion of Race in Diagnosing Kidney Disease. [employer] Journal of Kidney Diseases 202;79(2):268-88.e1. 2. N Engl J Med 2020 Vol. 385 Issue 19 Pages 5372-5904 Glucose [Mass/Vol] 105 mg/dL 68 - 110 mg/dL [facility] Interpretation and review of laboratory results [...] [facility] RBC (Bld) [#/Vol] 2.69 10*6/uL Low [facility] WBC (Bld) [#/Vol] 4.9 10*3/uL 4.5 - 11.5 K/uL [facility] HAPTOGLOBINon 02-11-2022 Haptoglobin [Mass/Vol] mg/dL Low 36 - 220 mg/dL [facility] Interpretation and review of laboratory results Abnormal [facility] LDHon 02-11-2022 LDH [Catalytic activity/Vol] 321 U/L High [facility] Laboratory - Chemistry and C hemistry - challengeon 02-11-2022 Albumin [Mass/Vol] 2.8 g/dL Low 3.4 - 5.1 g/dL [facility] ALP [Catalytic activity/Vol] 226 U/L High [facility] ALT [Catalytic activity/Vol] 77 U/L [facility] AST [Catalytic activity/Vol] 88 U/L High [facility] Bilirubin [Mass/Vol] 7.7 mg/dL High 0.1 - 1.5 mg/dL [facility] Bilirubin.direct [Mass/Vol] 1.70 mg/dL High 0.10 - 0.30 mg/dL [facility] Protein [Mass/Vol] 6.2 g/dL 6.2 - 8.3 g/dL [facility] MANUAL DIFF AND MORPHon Anisocytosis Ql (Bld) Slight [facility] Band form neutrophils/100 WBC (Bld) 5 % <=10 [facility] Bands # 0.25 K/uL High <0.01 [facility] Cells Counted Total (Bld) [#] 100 [...] 1 % [facility] Nucleated RBCs 1 K/uL [facility] Pol[facility]romasia LM Ql (Bld) Slight [facility] No Panel InformationOrdered By: Ami Brock on 02-11-2022 Interpretation and review of laboratory results Abnormal [facility] No Panel Informationon 02-11 Interpretation and review of laboratory results Abnormal [facility] RETICULOCYTE COUNTOrdered By : Kennedi Fuentes on 02-11-2022 Immature reticulocytes/Total reticulocytes (Bld) 0.45 % [facility] Interpretation and review of laboratory results Abnormal [facility] Reticulocytes (Bld) [#/Vol] 0.08 10*3/uL [facility] [...] [Mass/Vol] 84 mg/dL 68 - 110 mg/dL [facility] Potassium [Moles/Vol] 3.8 mmol/L 3.3 - 5.3 [...] 9.5 10*3/uL 4.5 - 11.5 K/uL [facility] GLUCOSE, FINGERSTICK-IN OFFI CEon 01-17-2022 Glucose [Mass/Vol] 188 mg/dL High 68 - 110 mg/dL [facility] Interpretation and review of laboratory results Abnormal [facility] HAPTOGLOBINon 01-17-2022 Haptoglobin [Mass/Vol] mg/dL Low 36 - 220 mg/dL [facility] Interpretation and review of laboratory results Abnormal [facility] HEPATIC FUNCTION PANELon Albumin [Mass/Vol] 2.8 g/dL Low 3.4 - 5.1 g/dL [facility] ALP [Catalytic activity/Vol] 133 U/L [facility] ALT [Catalytic activity/Vol] 75 U/L High [facility] AST [Catalytic activity/Vol] 94 U/L [facility] Bilirubin [Mass/Vol] 12.6 mg/dL High 0.1 - 1.5 mg/dL [facility] Bilirubin.direct [Mass/Vol] 2.40 mg/dL High 0.10 - 0.30 mg/dL [facility] Protein [Mass/Vol] 6.7 g/dL 6.2 - 8.3 g/dL [facility] LDHon 01-17-2022 LDH [Catalytic activity/Vol] 514 U/L High [facility] No Panel Informationon 01-17 Interpretation and review of laboratory results Abnormal [facility] PROTHROMBIN TIME AND INRon 0 01-17-2022 INR Coag (PPP) [Relative time] 1.97 {INR} High [facility] Interpretation and review of laboratory results Abnormal [facility] PT Coag (PPP) [Time] 22.1 s High [facility] RETICULOCYTE COUNTon 022 Immature reticulocytes/Total reticulocytes (Bld) 0.61 % High [facility] Interpretation and review of laboratory results Abnormal [facility] Reticulocytes (Bld) [#/Vol] 0.14 10*3/uL High [facility] Reticulocytes/100 RBC (Bld) 6.5 % High 0.5 - 1.5 % [facility] Basic metabolic 2000 panelon 01-16-2022 Anion gap [Moles/Vol] 14 mmol/L [facility] Calcium [Mass/Vol] 8.3 mg/dL Low 8.4 - 10. 4 mg/dL [facility] Chloride [Moles/Vol] 98 mmol/L 97 - 111 mmol/L [facility] CO2 [Moles/Vol] 24 mmol/L 21 - 30 mmol/L [facility] Creatinine [Mass/Vol] 0.42 mg/dL Low 0.80 - 1.30 mg/dL [facility] GFR/1.73 sq M.predicted MDRD (S/P/Bld) [Vol rate/Area] 142 mL/min/{1.73_m2} >=60 mL/min/1.73sqm [facility] Glucose [Mass/Vol] 102 mg/dL 68 - 110 mg/dL [facility] Potassium [Moles/Vol] 3.7 mmol/L 3.3 - 5.3 mmol/L [facility] Sodium [Moles/Vol] 132 mmol/L Low 135 - 148 mmol/L [facility] Urea nitrogen [Mass/Vol] 9 mg/dL 8 - 22 mg/dL [facility] CBC panel Auto (Bld)on 01-16 Erythrocyte distribution width (RBC) [Ratio] 23.7 % High 11.5 - 14.5 % [facility] Hematocrit (Bld) [Volume fraction] 21.6 % Low 41.0 - 53.0 % [facility] Hemoglobin (Bld) [Mass/Vol] 7.4 g/dL Low 13.9 - 16.3 g/dL [facility] Interpretation and review of laboratory results Abnormal [facility] MCH (RBC) [Entitic mass] 38.6 pg High 26.0 - 34.0 pg [facility] MCHC (RBC) [Mass/Vol] 34.4 g/dL 32.0 - 35.9 g/dL [facility] MCV (RBC) [Entitic vol] 112 fL High 80 - 100 fL [facility] Platelet mean volume (Bld) [Entitic vol] 9.3 fL 7.5 - 11.2 fL [facility] Platelets (Bld) [#/Vol] 94 10*3/uL Low 150 - 400 K/uL [facility] RBC (Bld) [#/Vol] 1.92 10*6/uL Low [facility] WBC (Bld) [#/Vol] 9.2 10*3/uL 4.5 - 11.5 K/uL [facility] GLUCOSE, FINGERSTICK-IN OFFI CEon 01-16-2022 Glucose [Mass/Vol] 145 mg/dL High 68 - 110 mg/dL [facility] Interpretation and review of laboratory results Abnormal [facility] Glucose [Mass/Vol] 247 mg/dL High 68 - 110 mg/dL [facility] Interpretation and review of laboratory results Abnormal [facility] Glucose [Mass/Vol] 132 mg/dL High 68 - 110 mg/dL [facility] Interpretation and review of laboratory results Abnormal [facility] Glucose [Mass/Vol] 90 mg/dL 68 - 110 mg/dL [facility] Interpretation and review of laboratory results Normal [facility] HAPTOGLOBINon 01-16-2022 Haptoglobin [Mass/Vol] mg/dL Low 36 - 220 mg/dL [facility] Interpretation and review of laboratory results Abnormal [facility] HEPATIC FUNCTION PANELon Albumin [Mass/Vol] 2.7 g/dL Low 3.4 - 5.1 g/dL [facility] ALP [Catalytic activity/Vol] 124 U/L [facility] ALT [Catalytic activity/Vol] 69 U/L High [facility] AST [Catalytic activity/Vol] 93 U/L High [facility] Bilirubin [Mass/Vol] 12.7 mg/dL High 0.1 - 1.5 mg/dL [facility] Bilirubin.direct [Mass/Vol] 2.30 mg/dL High 0.10 - 0.30 mg/dL [facility] Protein [Mass/Vol] 6.3 g/dL 6.2 - 8.3 g/dL [facility] LDHon 01-16-2022 LDH [Catalytic activity/Vol] 476 U/L High [facility] No Panel Informationon 01-16 Interpretation and review of laboratory results Abnormal [facility] PROTHROMBIN TIME AND INRon 0 01-16-2022 INR Coag (PPP) [Relative time] 2.08 {INR} High [facility] Interpretation and review of laboratory results Abnormal [facility] PT Coag (PPP) [Time] 23.3 s High [facility] Basic metabolic 2000 panelon 01-15-2022 Anion gap [Moles/Vol] 14 mmol/L [facility] Calcium [Mass/Vol] 7.9 mg/dL Low 8.4 - 10. 4 mg/dL [facility] Chloride [Moles/Vol] 97 mmol/L 97 - 111 mmol/L [facility] CO2 [Moles/Vol] 25 mmol/L 21 - 30 mmol/L [facility] Creatinine [Mass/Vol] 0.42 mg/dL Low 0.80 - 1.30 mg/dL [facility] GFR/1.73 sq M.predicted MDRD (S/P/Bld) [Vol rate/Area] 142 mL/min/{1.73_m2} >=60 mL/min/1.73sqm [facility] Glucose [Mass/Vol] 112 mg/dL High 68 - 110 mg/dL [facility] Potassium [Moles/Vol] 3.5 mmol/L 3.3 [...] 7.3 g/dL Low 13.9 - 16.3 g/dL [facility] Interpretation and review of laboratory results Abnormal [...] 8.9 10*3/uL 4.5 - 11.5 K/uL [facility] GLUCOSE, FINGERSTICK-IN OFFI ESTRELLITAon 01-15-2022 Glucose [Mass/Vol] 149 mg/dL High 68 - 110 mg/dL [facility] Interpretation and review of laboratory results Abnormal [facility] Glucose [Mass/Vol] 175 mg/dL High 68 - 110 mg/dL [facility] Interpretation and review of laboratory results Abnormal [facility] Glucose [Mass/Vol] 129 mg/dL High 68 - 110 mg/dL [facility] Interpretation and review of laboratory results Abnormal [facility] Glucose [Mass/Vol] 148 mg/dL High 68 - 110 mg/dL [facility] Interpretation and review of laboratory results Abnormal [facility] HAPTOGLOBINon 01-15-2022 Haptoglobin [Mass/Vol] mg/dL Low 36 - 220 mg/dL [facility] Interpretation and review of laboratory results Abnormal [facility] HEPATIC FUNCTION PANELon Albumin [Mass/Vol] 2.6 g/dL Low 3.4 - 5.1 g/dL [facility] ALP [Catalytic activity/Vol] 182 U/L [facility] ALT [Catalytic activity/Vol] 65 U/L High [facility] AST [Catalytic activity/Vol] 104 U/L High [facility] Bilirubin [Mass/Vol] 10.8 mg/dL High 0.1 - 1.5 mg/dL [facility] Bilirubin.direct [Mass/Vol] 2.10 mg/dL High 0.10 - 0.30 mg/dL [facility] Protein [Mass/Vol] 6.5 g/dL 6.2 - 8.3 g/dL [facility] LDHon 01-15-2022 LDH [Catalytic activity/Vol] 481 U/L High [facility] No Panel Informationon 01-15 Interpretation and review of laboratory results Abnormal [facility] PROTHROMBIN TIME AND INRon 0 01-15-2022 INR Coag (PPP) [Relative time] 1.89 {INR} High [facility] Interpretation and review of laboratory results Abnormal [facility] PT Coag (PPP) [Time] 21.2 s High [facility] Basic metabolic 2000 panelon 01-14-2022 Anion gap [Moles/Vol] 11 mmol/L [facility] Calcium [Mass/Vol] 8.2 mg/dL Low 8.4 - 10. 4 mg/dL [facility] Chloride [Moles/Vol] 101 mmol/L 97 - 111 mmol/L [facility] CO2 [Moles/Vol] 27 mmol/L 21 - 30 mmol/L [facility] Creatinine [Mass/Vol] 0.44 mg/dL Low 0.80 - 1.30 mg/dL [facility] GFR/1.73 sq M.predicted MDRD (S/P/Bld) [Vol rate/Area] 140 mL/min/{1.73_m2} >=60 mL/min/1.73sqm [facility] Glucose [Mass/Vol] 136 mg/dL High 68 - 110 mg/dL [facility] Potassium [Moles/Vol] 3.4 mmol/L 3.3 - [...] 139 mg/dL High 68 - 110 mg/dL [facility] Interpretation and review of laboratory results Abnormal [facility] Glucose [Mass/Vol] 203 mg/dL High 68 - 110 mg/dL [facility] Interpretation and review of laboratory results Abnormal [facility] Glucose [Mass/Vol] 143 mg/dL High 68 - 110 mg/dL [facility] Interpretation and review of laboratory results Abnormal [facility] Glucose [Mass/Vol] 154 mg/dL High 68 - 110 mg/dL [facility] Interpretation and review of laboratory results Abnormal [facility] HAPTOGLOBINon 01-14-2022 Haptoglobin [Mass/Vol] mg/dL Low 36 - 220 mg/dL [facility] Interpretation and review of laboratory results Abnormal [facility] HEPATIC FUNCTION PANELon Albumin [Mass/Vol] 2.6 g/dL Low 3.4 - 5.1 g/dL [facility] ALP [Catalytic activity/Vol] 177 U/L [facility] ALT [Catalytic activity/Vol] 62 U/L High [facility] AST [Catalytic activity/Vol] 104 U/L High [facility] Bilirubin [Mass/Vol] 11.5 mg/dL High 0.1 - 1.5 mg/dL [facility] Bilirubin.direct [Mass/Vol] 2.20 mg/dL High 0.10 - 0.30 mg/dL [facility] Protein [Mass/Vol] 6.4 g/dL 6.2 - 8.3 g/dL [facility] LDHon 01-14-2022 LDH [Catalytic activity/Vol] 473 U/L High [facility] Laboratory - Microbiology an d Antimicrobial susceptibilityon 01-14-2022 Bacteria identified Cx Nom (Bld) No Growth [facility] MANUAL DIFF AND MORPHon 01-05 Anisocytosis Ql (Bld) Marked [facility] [place] cells LM Ql (Bld) Few [facility] Cells Counted Total (Bld) [#] 100 {cells} [facility] Eosinophils (Bld) [#/Vol] 0.15 10*3/uL 0.00 - 0.70 K/uL [facility] Eosinophils/100 WBC (Bld) 2.0 % 0.1 - [...] Interpretation and review of laboratory results [facility] Interpretation and review of laboratory results Abnormal [facility] No Panel InformationOrdered By: Erika Martin on 01-14-2022 Interpretation and review of laboratory results Abnormal [facility] PROTHROMBIN TIME AND INRon 0 01-14-2022 INR Coag (PPP) [Relative time] 1.94 {INR} High [facility] Interpretation and review of laboratory results Abnormal [facility] PT Coag (PPP) [Time] 21.8 s High [facility] Basic metabolic 2000 panelon 01-13-2022 Anion [...] 130 mg/dL High 68 - 110 mg/dL [facility] Potassium [Moles/Vol] 3.4 mmol/L 3.3 - 5.3 mmol/L [facility] Sodium [Moles/Vol] 135 mmol/L 135 - 148 mmol/L [facility] Urea nitrogen [Mass/Vol] 6 mg/dL Low 8 - 22 mg/dL [facility] CBC WITH DIFFERENTIALon Erythrocyte distribution width [...] Interpretation and review of laboratory results Abnormal [facility] FACTOR VIII ASSAYOrdered By: Jozef Gibbons on 01-13-2022 Factor VIII Assay 356 % High 55 - 180 % [facility] Interpretation and review of laboratory results Abnormal [facility] GLUCOSE, FINGERSTICK-IN OFFI CEon 01-13-2022 Glucose [Mass/Vol] 185 mg/dL High 68 - 110 mg/dL [facility] Glucose [Mass/Vol] 226 mg/dL High 68 - 110 mg/dL [facility] Glucose [Mass/Vol] 152 mg/dL High 68 - 110 mg/dL [facility] Interpretation and review of laboratory results Abnormal [facility] Glucose [Mass/Vol] 140 mg/dL High 68 - 110 mg/dL [facility] Interpretation and review of laboratory results Abnormal [facility] HAPTOGLOBINon 01-13-2022 Haptoglobin [Mass/Vol] mg/dL Low 36 - 220 mg/dL [facility] Interpretation and review of laboratory results Abnormal [facility] HEPATIC FUNCTION PANELon Albumin [Mass/Vol] 2.6 g/dL Low 3.4 - 5.1 g/dL [facility] ALP [Catalytic activity/Vol] 169 U/L [facility] ALT [Catalytic activity/Vol] 63 U/L High [facility] AST [Catalytic activity/Vol] 124 U/L High [facility] Bilirubin [Mass/Vol] 11.4 mg/dL High 0.1 - 1.5 mg/dL [facility] Bilirubin.direct [Mass/Vol] 2.10 mg/dL High 0.10 - 0.30 mg/dL [facility] Protein [Mass/Vol] 6.2 g/dL 6.2 - 8.3 g/dL [facility] HEPATITIS C QUANT BY PCROrde red By: Gera Meza on 01-13-2022 HCV RNA panel ANGIE+probe Not detected Not Detected [facility] LDHon 01-13-2022 LDH [Catalytic activity/Vol] 497 U/L High [facility] MANUAL DIFF AND MORPHon Anisocytosis Ql (Bld) Marked [facility] Atypical Lymph # 0.15 K/uL [facility] Band form neutrophils/100 WBC (Bld) 8 % <=10 [facility] Bands # 0.58 K/uL High <0.01 [facility] [place] cells LM Ql (Bld) Few [facility] Cells [...] PT Coag (PPP) [Time] 23.0 s High [facility] Basic metabolic 2000 panelon 01-12-2022 [...] 147 mg/dL High 68 - 110 mg/dL [facility] Interpretation and review of laboratory [...] 8.0 10*3/uL 4.5 - 11.5 K/uL [facility] GLUCOSE, FINGERSTICK-IN OFFI CEon 01-12-2022 Glucose [Mass/Vol] 140 mg/dL High 68 - 110 mg/dL [facility] Interpretation and review of laboratory results Abnormal [facility] Glucose [Mass/Vol] 157 mg/dL High 68 - 110 mg/dL [facility] Interpretation and review of laboratory results Abnormal [facility] HAPTOGLOBINon 01-12-2022 Haptoglobin [Mass/Vol] mg/dL Low 36 - 220 mg/dL [facility] Interpretation and review of laboratory results Abnormal [facility] HEPATIC FUNCTION PANELon Albumin [Mass/Vol] 2.6 g/dL Low 3.4 - 5.1 g/dL [facility] ALP [Catalytic activity/Vol] 148 U/L [facility] ALT [Catalytic activity/Vol] 61 U/L High [facility] AST [Catalytic activity/Vol] 131 U/L High [facility] Bilirubin [Mass/Vol] 11.1 mg/dL High 0.1 - 1.5 mg/dL [facility] Bilirubin.direct [Mass/Vol] 2.10 mg/dL High 0.10 - 0.30 mg/dL [facility] Protein [Mass/Vol] 6.4 g/dL 6.2 - 8.3 g/dL [facility] LDHon 01-12-2022 LDH [Catalytic activity/Vol] [...] Slight [facility] Anisocytosis Ql (Bld) Marked [facility] [place] cells LM Ql (Bld) Few [facility] Cells [...] 149 mg/dL High 68 - 110 mg/dL Ms [facility] Potassium [Moles/Vol] 3.4 mmol/L 3.3 - [...] (Bld) 73.3 % 31.0 - 76.0 % [facility] Platelet mean volume (Bld) [Entitic vol] 8.4 fL 7.5 - 11.2 fL [facility] Platelets (Bld) [#/Vol] 62 10*3/uL Low 150 - 400 K/uL [facility] RBC (Bld) [#/Vol] 1.54 10*6/uL Low [facility] WBC (Bld) [#/Vol] 7.3 10*3/uL 4.5 - 11.5 K/uL [facility] GLUCOSE, FINGERSTICK-IN OFFI CEon 01-11-2022 Glucose [Mass/Vol] 167 mg/dL High 68 - 110 mg/dL [facility] Interpretation and review of laboratory results Abnormal [facility] HAPTOGLOBINon 01-11-2022 Haptoglobin [Mass/Vol] mg/dL Low 36 - 220 mg/dL [facility] Interpretation and review of laboratory results Abnormal [facility] HEPATIC FUNCTION PANELon Albumin [Mass/Vol] 2.6 g/dL Low 3.4 - 5.1 g/dL [facility] ALP [Catalytic activity/Vol] 95 U/L [facility] ALT [Catalytic activity/Vol] 57 U/L High [facility] AST [Catalytic activity/Vol] 143 U/L High [facility] Bilirubin [Mass/Vol] 11.4 mg/dL High 0.1 - 1.5 mg/dL [facility] Bilirubin.direct [Mass/Vol] 2.20 mg/dL High 0.10 - 0.30 mg/dL [facility] Protein [Mass/Vol] 5.7 g/dL Low 6.2 - 8.3 g/dL [facility] LDHon 01-11-2022 LDH [Catalytic activity/Vol] 428 U/L High [facility] Laboratory - Blood bankon ABO and Rh group Nom (Bld) Blood group A Rh(D) positive [facility] MAGNESIUMon 01-11-2022 Interpretation and review of laboratory results Normal [facility] Magnesium [Mass/Vol] 2.0 mg/dL 1.6 - 2.8 mg/dL [facility] MANUAL DIFF AND MORPHon 05-0 Band form neutrophils/100 WBC (Bld) 3 % <=10 [facility] Bands # 0.22 K/uL High <0.01 [facility] [place] cells LM Ql (Bld) Few [facility] Cells [...] Few [facility] Anisocytosis Ql (Bld) Marked [facility] [place] cells LM Ql (Bld) Few [facility] Cells [...] Abnormal [facility] No Panel Informationon 01-11 [facility] Interpretation and review of laboratory results Abnormal [facility] PROTHROMBIN TIME AND INRon 0 01-11-2022 INR Coag (PPP) [Relative time] 2.16 {INR} High [facility] Interpretation and review of laboratory results Abnormal [facility] PT Coag (PPP) [Time] 24.2 s High [facility] TYPE AND SCREENon 01-11-2022 ABO and Rh group Nom (Bld) Blood group A Rh(D) positive [facility] ABO and Rh group Nom (Bld) No Previous Results [facility] Blood group antibody screen Ql Negative [facility] Basic metabolic 2000 panelon 01-10-2022 Anion [...] 165 mg/dL High 68 - 110 mg/dL [facility] Interpretation and review of laboratory [...] g/dL Critically low 13.9 - 16.3 g/dL [facility] Interpretation and review of laboratory results [...] [Mass/Vol] mg/dL Low 36 - 220 mg/dL [facility] Interpretation and review of laboratory results Abnormal [facility] HEPATIC FUNCTION PANELon Albumin [Mass/Vol] 2.7 g/dL Low 3.4 - 5.1 g/dL [facility] ALP [Catalytic activity/Vol] 87 U/L [facility] ALT [Catalytic activity/Vol] 54 U/L [facility] AST [Catalytic activity/Vol] 147 U/L [facility] Bilirubin [Mass/Vol] 11.1 mg/dL High 0.1 - 1.5 mg/dL [facility] Bilirubin.direct [Mass/Vol] 2.60 mg/dL High 0.10 - 0.30 mg/dL [facility] Protein [Mass/Vol] 6.0 g/dL Low 6.2 - 8.3 g/dL [facility] LDHOrdered By: Jarrod cruz on 01-10-2022 Interpretation and review of laboratory results Abnormal [facility] LDH [Catalytic activity/Vol] 378 U/L High [facility] Laboratory - Microbiology an d Antimicrobial susceptibilityon 01-10-2022 RSV RNA ANGIE+probe Ql (Unsp spec) Negative Negative [facility] - Specimen inform ationon 01-10-2022 Specimen source Nom (Unsp spec) Negative Negative [facility] MAGNESIUMon 01-10-2022 Interpretation and review of laboratory results Normal [facility] Magnesium [Mass/Vol] 1.7 mg/dL 1.6 - 2.8 mg/dL [facility] MANUAL DIFF AND MORPHon Acanthocytes LM [...] [facility] Target cells LM Ql (Bld) Few [facility] No Panel Informationon 01-10 [facility] Interpretation and review of laboratory results Abnormal [facility] No Panel InformationOrdered By: Meka Morales on 01-10-2022 [facility] PARTIAL THROMBOPLASTIN TIMEo n 01-10-2022 aPTT Coag (Bld) [Time] 29 s [facility] Interpretation and review of laboratory results Normal [facility] PROTHROMBIN TIME AND INRon 0 01-10-2022 INR Coag (PPP) [Relative time] 1.79 {INR} High [facility] Interpretation and review of laboratory results Abnormal [facility] PT Coag (PPP) [Time] 20.1 s High [facility] RED BLOOD CELL COMPONENTon 0 01-10-2022 BB Order Item Product status info to follow [facility] RESPIRATORY VIRUS PANEL, PCR on 01-10-2022 Adenovirus DNA ANGIE+probe Ql (Unsp spec) Negative Negative [facility] C. pneumoniae DNA ANGIE+probe Ql (Unsp spec) Negative Negative [facility] FLUAV H1 RNA ANGIE+probe Ql (Unsp spec) Negative Negative [facility] FLUAV H3 RNA ANGIE+probe Ql (Unsp spec) Negative Negative [facility] FLUAV RNA ANGIE+probe Ql (Unsp spec) Negative Negative [facility] FLUBV RNA ANGIE+probe Ql (Unsp spec) Negative Negative [facility] HCoV HKU1 RNA ANGIE+probe Ql (Unsp spec) Negative Negative [facility] HCoV NL63 RNA ANGIE+probe Ql (Unsp spec) Negative Negative [facility] hMPV RNA AGNIE+probe Ql (Unsp spec) Negative Negative [facility] Interpretation and review of laboratory results Normal [facility] M. pneumoniae DNA ANGIE+probe Ql (Unsp spec) Negative Negative [facility] Parainfluenza virus 1 RNA ANGIE+probe Ql (Unsp spec) Negative Negative [facility] Parainfluenza virus 2 RNA ANGIE+probe Ql (Unsp spec) Negative Negative [facility] Parainfluenza virus 3 RNA ANGIE+probe Ql (Unsp spec) Negative Negative [facility] Parainfluenza virus 4 RNA ANGIE+probe Ql (Unsp spec) Negative Negative [facility] Rhinovirus RNA ANGIE+probe Nom (Unsp spec) Negative Negative [facility] US HEP PORT SPLEN VEIN + DOP PLERon 01-10-2022 RADIOLOGY [facility] Radiology Study observation (narrative) [facility] US SPLEENon 01-10-2022 RADIOLOGY [facility] Radiology Study observation (narrative) [facility] SPLEENOrdered By: Enrique Basurto on 01-10-2022 [facility] Work Phone: AMMONIAon 01-09-2022 Ammonia (P) [Moles/Vol] 74 umol/L High 11 - 35 umol/L [facility] Interpretation and review of laboratory results Abnormal [facility] AUTOIMMUNE MULTIPLEX PANELon 01-09-2022 Interpretation and review of laboratory results Normal [facility] Nuclear Ab IA Ql (S) Negative Negative [facility] Basic metabolic 2000 panelon 01-09-2022 Anion [...] 142 mg/dL High 68 - 110 mg/dL [facility] Potassium [Moles/Vol] 4.0 mmol/L 3.3 - 5.3 mmol/L [facility] Sodium [Moles/Vol] 133 mmol/L Low 135 - 148 mmol/L [facility] Urea nitrogen [Mass/Vol] 7 mg/dL Low 8 - 22 mg/dL [facility] CBC WITH DIFFERENTIALOrdered By: Norris Billings [...] Interpretation and review of laboratory results Abnormal [facility] HEPATIC FUNCTION PANELon Albumin [Mass/Vol] 2.7 g/dL Low 3.4 - 5.1 g/dL [facility] ALP [Catalytic activity/Vol] 92 U/L [facility] ALT [Catalytic activity/Vol] 47 U/L [facility] AST [Catalytic activity/Vol] 124 U/L [facility] Bilirubin [Mass/Vol] 11.2 mg/dL High 0.1 - 1.5 mg/dL [facility] Bilirubin.direct [Mass/Vol] 2.50 mg/dL High 0.10 - 0.30 mg/dL [facility] Protein [Mass/Vol] 6.0 g/dL Low 6.2 - 8.3 g/dL [facility] HIV 1 and 2 Ab and HIV 1 p24 Ag panel IAon 01-09-2022 HIV 1+2 Ab+HIV1 p24 Ag IA Ql Non-Reactive Non-Reactive [facility] Interpretation and review of laboratory results Normal [facility] Lipid 1996 panelon 2 Cholesterol [...] Few [facility] Anisocytosis Ql (Bld) Marked [facility] [place] cells LM Ql (Bld) Few [facility] Cells Counted Total (Bld) [#] [facility] Macrocytes Ql (Bld) Slight [facility] Ovalocytes LM Ql (Bld) Many [facility] Polychromasia LM Ql (Bld) Slight [facility] RBC.hypochromic/100 RBC Auto (Bld) Slight [facility] Schistocytes LM Ql (Bld) Few [facility] Target cells LM Ql (Bld) Few [facility] No Panel InformationOrdered By: Norris Billings on 01-09-2022 [facility] No Panel InformationOrdered By: Mi Alcazar on 01-09-2022 [facility] No Panel Informationon 01-09 Interpretation and review of laboratory results Ab[facility] PROTHROMBIN TIME AND INRon 0 01-09-2022 INR Coag (PPP) [Relative time] 1.94 {INR} High [facility] Interpretation and review of laboratory results Abnormal [facility] PT Coag (PPP) [Time] 21.8 s High [facility] RED BLOOD CELL COMPONENTon 0 01-09-2022 BB Order Item Product status info to follow [facility] THYROXINE (T4), FREEon 01-09 Free T4 [Mass/Vol] 0.88 ng/dL 0.45 - 1. 80 ng/dL [facility] Interpretation and review of laboratory results Normal [facility] XR ABDOMEN 1 VIEW APon 01-09 RADIOLOGY [facility] Radiology Study observation (narrative) [facility] XR ABDOMEN 1 VIEW APOrdered By: Ulysses Omalley on 01-09-2022 [facility] Work Phone: ACETAMINOPHENon 01-08-2022 Acetaminophen [Mass/Vol] ug/mL [...] antiglobulin test.complement specific reagent Ql (RBC) Negative [facility] Direct antiglobulin test.IgG specific reagent (RBC) [Interp] Positive [facility] Direct antiglobulin test.poly specific reagent Ql (RBC) Positive [facility] EKG 12 LEAD - PERFORMon Diagnosis [facility] P wave Atrium by EKG 76 BPM [facility] wave axis 46 degrees [facility] P-R Interval 132 ms [facility] Q-T interval 422 ms [facility] Q-T interval corrected 474 ms [facility] QRS axis 44 degrees [facility] QRS duration 86 ms [facility] T wave axis 22 degrees [facility] FERRITINon 01-08-2022 Ferritin [Mass/Vol] 829.1 ng/mL High 11.5 - 3 00.0 ng/mL [facility] Interpretation and review of laboratory results Abnormal [facility] FOLIC ACIDon 01-08-2022 Folate [Mass/Vol] 13.9 ng/mL 5.9 - 24.7 ng/mL [facility] Interpretation and review of laboratory results Normal [facility] GLUCOSE, FINGERSTICK-IN OFFI CEon 01-08-2022 Glucose [Mass/Vol] 94 mg/dL 68 - 110 mg/dL [facility] Interpretation and review of laboratory results Normal [facility] HAPTOGLOBINon 01-08-2022 Haptoglobin [Mass/Vol] mg/dL Low 36 - 220 mg/dL [facility] Interpretation and review of laboratory results Abnormal [facility] HCV Ab IA Qn (S)on 2 HCV Ab Ql (S) Non-Reactive Nonreactive [facility] Interpretation and review of laboratory results Normal [facility] HEPATIC FUNCTION PANELon Albumin [Mass/Vol] 2.9 g/dL Low 3.4 - 5.1 g/dL [facility] ALP [Catalytic activity/Vol] 121 U/L [facility] ALT [Catalytic activity/Vol] 50 U/L High [facility] AST [Catalytic activity/Vol] 129 U/L High [facility] Bilirubin [Mass/Vol] 11.1 mg/dL High 0.1 - 1.5 mg/dL [facility] Bilirubin.direct [Mass/Vol] 2.40 mg/dL High 0.10 - 0.30 mg/dL [facility] Protein [Mass/Vol] 6.4 g/dL 6.2 - 8.3 g/dL [facility] HEPATITIS A IGM ANTIBODYon 0 01-08-2022 HAV IgM IA Ql Non-Reactive Nonreactive [facility] Interpretation and review of laboratory results Normal [facility] HEPATITIS A TOTAL ANTIBODYon 01-08-2022 HAV Ab IA Ql (S) Reactive Abnormal Nonreactive [facility] Interpretation and review of laboratory results Abnormal [facility] HEPATITIS B CORE ANTIBODYon 01-08-2022 HBV core Ab Ql (S) Non-Reactive Nonreactive [facility] Interpretation and review of laboratory results Normal [facility] HEPATITIS B SURFACE ANTIBODY on 01-08-2022 HBV surface Ab IA Qn m[IU]/mL mIU/mL [facility] HEPATITIS B SURFACE ANTIGENo n 01-08-2022 HBV surface Ag Ql (S) Non-Reactive Non-Reactive [facility] Interpretation and review of laboratory results Normal [facility] IRON AND TIBCon 01-08-2022 Interpretation and review of laboratory results Abnormal [facility] Iron [Mass/Vol] 145 ug/dL 45 - 160 ug/dL [facility] Iron binding capacity [Mass/Vol] 214 ug/mL Low 250 - 410 ug/mL [facility] Iron saturation [Mass fraction] 68 % High 20 - 55 % [facility] Transferrin [Mass/Vol] 153 mg/dL Low 210 - 375 mg/dL [facility] LACTIC ACIDOrdered By: Arnol kowalski on 01-08-2022 Interpretation and review of laboratory results Normal [facility] Lactate [Moles/Vol] 1.1 mmol/L 0.5 - 2. 0 mmol/L [facility] LDHOrdered By: Yaritza staton on 01-08-2022 Interpretation and review of laboratory results Abnormal [facility] LDH [Catalytic activity/Vol] 369 U/L [facility] MAGNESIUMon 01-08-2022 Interpretation and review of laboratory results Normal [facility] Magnesium [Mass/Vol] 1.7 mg/dL 1.6 - 2.8 mg/dL [facility] MANUAL DIFF AND MORPHon 05- Anisocytosis Ql (Bld) Marked [facility] Cells Counted Total (Bld) [#] [facility] Macrocytes Ql (Bld) Slight [facility] Polychromasia LM Ql (Bld) Slight [facility] Acanthocytes LM Ql (Bld) Few [facility] [place] cells LM Ql (Bld) Few [facility] Cells Counted Total (Bld) [#] [facility] Macrocytes Ql (Bld) Slight [facility] Polychromasia LM Ql (Bld) Slight [facility] No Panel InformationOrdered By: Fiorella Cochran on 01-08-2022 [facility] No Panel Informationon 01-08 Interpretation and review of laboratory results Abnormal [facility]Y [facility] No Panel InformationOrdered By: Rafy Carr on 01-08-2022 [facility] No Panel InformationOrdered By: Crow Werner on 01-08-2022 [facility] Work Phone: PROTHROMBIN TIME AND INRon 0 01-08-2022 INR Coag (PPP) [Relative time] 1.78 {INR} High [facility] Interpretation and review of laboratory results Abnormal [facility] PT Coag (PPP) [Time] 20.0 s High [facility] RETICULOCYTE COUNTOrdered By : Deborah Che on 01-08-2022 Immature reticulocytes/Total reticulocytes (Bld) 0.56 % High [facility] Interpretation and review of laboratory results Abnormal [facility] Reticulocytes (Bld) [#/Vol] 0.10 10*3/uL High [facility] Reticulocytes/100 RBC (Bld) 5.2 % High 0.5 - 1.5 % [facility] TSHon 01-08-2022 Interpretation and review of laboratory results Abnormal [facility] TSH Qn 6.627 m[IU]/L [facility] US ASCITES SURVEY 4 QUADRANT Son 01-08-2022 [facility]OLOGY [facility] Radiology Study observation (narrative) [facility] ASCITES SURVEY 4 QUADRANT SOrdered By: Loreta Rizzo on 01-08-2022 [facility] Work Phone: US LIVER/GALL BLADDER/PANCRE ASon 01-08-20[address] [facility] Study observation (narrative) [facility] VITAMIN B12 (CYANOCOBALAMIN) on 01-08-2022 Cobalamin (Vitamin B12) [Moles/Vol] 1299 pg/mL >300 [facility] Interpretation and review of laboratory results Normal [facility] XR ELBOW LEFT MINIMUM 3 VIEW Son 01-08-2022 Radiology Study observation (narrative) [facility] XR HUMERUS LEFTon 01-08-2022 Radiology Study observation (narrative) [facility] XR ORBITSon 01-08-2022 RADIOLOGY [facility] Radiology Study observation (narrative) [facility] XR ORBITSOrdered By: Philipp Salgado on 01-08-2022 [facility] Work Phone: BLOOD BANKOrdered By: Destiny Mark [...] Comment: Crit ical Result verified by repeat analysis\\Critical Result S_CK:[id number] Called to JASMEET LAZO AT [...] Comment: Crit ical Result verified by repeat analysis\\Critical Result S_ETOH:107.0 Called to RODGER LAZARO AT [...] increase of schistocytes. No hypersegmented granulocytes seen.D64.9CPT 36016 Invalid Interpretation Code [facility] HemeManSS URINALYSISOrdered By: [...] Interpretation Code Negative [facility] UA Auto SS [place].plasma/Lithi um.RBC (Bld) [Mass ratio] 0-3 /HPF Normal 0-3/HPF [facility] UA Auto SS Mucus Ql (Urine sed) Trace (01/07/22 12:30 PM) Normal [facility] UA Auto SS Nitrite Ql (U) Negative (01/07/22 12:30 PM) Normal Negative [facility] [place] Auto SS pH (U) 7.5 *NA* (01/07/22 12:30 PM) Invalid Interpretation Code 5.0 - 9.0 [facility] Auto SS Protein (U) [Mass/Vol] Negative (01/07/22 12:30 PM) Normal Negative [facility] UA Auto SS Specific gravity (U) [Rel density] 1.010 *NA* (01/07/22 12:30 PM) Invalid Interpretation Code 1.005 - 1.030 [facility] UA Auto SS UA Spec Desc Clean Catch (01/07/22 12:30 PM) Normal [facility] UA Auto SS Urobilinogen Qn (U) [id number] {Alexey'U}/dL Invalid Interpretation Code 0.0 - 1.0 EU/dL [facility] UA Auto SS WBC Auto Ql (U) Negative (01/07/22 12:30 PM) Normal Negative [facility] UA Auto SS WBC LM.HPF (Urine sed) [#/Area] 0-5 /HPF Normal 0-5/HPF [facility] UA Auto SS Vital Signs Date Time Vital Sign Value Performing Clinician Facility 01-12-2025 08:39-0400 Diastolic blood pressure 69 mm[Hg] Evelio Carr [facility] 01-12-2025 08:39-0400 Heart rate 65 /min Evelio Carr [facility] 01-12-2025 08:39-0400 Mean blood pressure 86 mm[Hg] Evelio Carr [facility] 01-12-2025 08:39-0400 Respiratory rate 16 /min Evelio Carr [facility] 01-12-2025 08:39-0400 Systolic blood pressure 119 mm[Hg] Evelio Carr [facility] 01-03-2025 11:54-0400 Heart rate 58 /min Evelio Carr [facility] 01-03-2025 11:54-0400 SaO2% (BldA) [Mass fraction] 100 % Evelio Carr [facility] 01-03-2025 11:54-0400 Diastolic blood pressure 80 mm[Hg] Evelio Carr [facility] 01-03-2025 11:54-0400 Mean blood pressure 105 mm[Hg] Evelio Carr [facility] 01-03-2025 11:54-0400 Systolic blood pressure 155 mm[Hg] Evelio Carr [facility] 01-03-2025 11:43-0400 Diastolic blood pressure 82 mm[Hg] Evelio Carr [facility] 01-03-2025 11:43-0400 Heart rate 59 /min Evelio Carr [facility] 01-03-2025 11:43-0400 SaO2% (BldA) [Mass fraction] 97 % Evelio Carr [facility] 01-03-2025 11:43-0400 Systolic blood pressure 148 mm[Hg] Evelio Carr [facility] 01-03-2025 10:52-0400 Heart rate 62 /min Evelio Carr [facility] 01-03-2025 10:52-0400 SaO2% (BldA) [Mass fraction] 100 % Evelio Carr [facility] 01-03-2025 10:52-0400 Body temperature 97.88 [degF] Eevlio Carr [facility] 01-03-2025 10:50-0400 Diastolic blood pressure 83 mm[Hg] Evelio Carr [facility] 01-03-2025 10:50-0400 Mean blood pressure 100 mm[Hg] Fraser Bruno [facility] 01-03-2025 10:50-0400 Systolic blood pressure 136 mm[Hg] Evelio Carr [facility] 01-03-2025 10:49-0400 Respiratory rate 14 /min Evelio Carr [facility] 12-20-2024 08:21-0400 Diastolic blood pressure 87 mm[Hg] Sadieree Loco [facility] 12-20-2024 08:21-0400 Heart rate 69 /min Sadieree Loco [facility] 12-20-2024 08:21-0400 Mean blood pressure 106 mm[Hg] Sadieree Loco [facility] 12-20-2024 08:21-0400 Respiratory rate 14 /min Sadieree Loco [facility] 12-20-2024 08:21-0400 Systolic blood pressure 144 mm[Hg] Sdaieree Loco [facility] 11-21-2024 08:32-0400 Diastolic blood pressure 79 mm[Hg] Sadieree Loco [facility] 11-21-2024 08:32-0400 Heart rate 68 /min Sadieree Loco [facility] 11-21-2024 08:32-0400 Mean blood pressure 101 mm[Hg] Sadieree Loco [facility] 11-21-2024 08:32-0400 Respiratory rate 16 /min Sadieree Loco [facility] 11-21-2024 08:32-0400 Systolic blood pressure 146 mm[Hg] Sadieree Loco [facility] 11-18-2024 09:24-0400 Diastolic blood pressure 72 mm[Hg] Martin Sarmini [facility] 11-18-2024 09:24-0400 Heart rate 65 /min Martin Sarmini [facility] 11-18-2024 09:24-0400 Mean blood pressure 91 mm[Hg] Martin Sarmini [facility] 11-18-2024 09:24-0400 Respiratory rate 20 /min Martin Sarmini [facility] 11-18-2024 09:24-0400 SaO2% (BldA) [Mass fraction] 100 % Martin Sarmini [facility] 11-18-2024 09:24-0400 Systolic blood pressure 128 mm[Hg] Martin Sarmini [facility] 11-18-2024 09:13-0400 Diastolic blood pressure 62 mm[Hg] Martin Sarmini [facility] 11-18-2024 09:13-0400 Heart rate 63 /min Martin Sarmini [facility] 11-18-2024 09:13-0400 Mean blood pressure 79 mm[Hg] Martin Sarmini [facility] 11-18-2024 09:13-0400 Respiratory rate 13 /min Martin Sarmini [facility] 11-18-2024 09:13-0400 SaO2% (BldA) [Mass fraction] 100 % Martin Sarmini [facility] 11-18-2024 09:13-0400 Systolic blood pressure 113 mm[Hg] Martin Sarmini [facility] 11-18-2024 09:07-0400 SaO2% (BldA) [Mass fraction] 98 % Martin Sarmini [facility] 11-18-2024 09:04-0400 Blood Pressure Location Martin Sarmini [facility] 11-18-2024 09:04-0400 Body temperature 97.7 [degF] Martin Sarmini [facility] 11-18-2024 09:04-0400 Diastolic blood pressure 60 mm[Hg] Martin Sarmini [facility] 11-18-2024 09:04-0400 Heart rate 71 /min Martin Sarmini [facility] 11-18-2024 09:04-0400 Mean blood pressure 76 mm[Hg] Martin Sarmini [facility] 11-18-2024 09:04-0400 Respiratory rate 13 /min Martin Sarmini [facility] 11-18-2024 09:04-0400 Systolic blood pressure 107 mm[Hg] Martin Sarmini [facility] 11-18-2024 08:55-0400 Respiratory rate 12 /min Martin Sarmini [facility] 11-18-2024 08:21-0400 Blood Pressure Location Martin Sarmini [facility] 11-18-2024 08:21-0400 Body temperature 98.06 [degF] Martin Sarmini [facility] 10-26-2024 10:13-0500 Diastolic blood pressure 105 mm[Hg] Evelio Carr [facility] 10-26-2024 10:13-0500 Heart rate 69 /min Evelio Carr [facility] 10-26-2024 10:13-0500 Mean blood pressure 126 mm[Hg] Evelio Carr [facility] 10-26-2024 10:13-0500 Respiratory rate 14 /min Evelio Carr [facility] 10-26-2024 10:13-0500 Systolic blood pressure 169 mm[Hg] Evelio Carr [facility] 10-05-2024 09:00-0500 Blood Pressure Location Vic Sosinski TOOL CLERK-C [facility] 10-05-2024 09:00-0500 Diastolic blood pressure 78 mm[Hg] Vic Moserinski TOOL CLERK-C [facility] 10-05-2024 09:00-0500 Heart rate 78 /min Vic Moserinski TOOL CLERK-C [facility] 10-05-2024 09:00-0500 SaO2% (BldA) [Mass fraction] 100 % Vic Sosinski TOOL CLERK-C [facility] 10-05-2024 09:00-0500 Systolic blood pressure 138 mm[Hg] Vic Sosinski TOOL CLERK-C [facility] 09-29-2024 13:43-0500 Body temperature 98.24 [degF] [facility] 09-29-2024 13:43-0500 Diastolic blood pressure 77 mm[Hg] [facility]-29-[facility] 13:43-0500 Heart rate 74 /min [facility] 09-29-2024 13:43-0500 Mean blood pressure 96 mm[Hg] [facility] 09-29-2024 13:43-0500 Respiratory rate 16 /min [facility] 09-29-2024 13:43-0500 SaO2% (BldA) [Mass fraction] 100 % Kavon Lu [facility] 09-29-2024 13:43-0500 Systolic blood pressure 133 mm[Hg] Kavon Lu [facility] 08-19-2024 17:23-0500 Diastolic blood pressure 90 mm[Hg] Loreta Cummings [facility] 08-19-2024 17:23-0500 Mean blood pressure 113 mm[Hg] Loreta Cummings [facility] 08-19-2024 17:23-0500 Systolic blood pressure 160 mm[Hg] Loreta Cummings [facility] 08-19-2024 15:27-0500 Blood Pressure Location Loreta Cummings [facility] 08-19-2024 15:27-0500 Body temperature 98.42 [degF] Loreta Cummings [facility] 08-19-2024 15:27-0500 Diastolic blood pressure 68 mm[Hg] Loreta Cummings [facility] 08-19-2024 15:27-0500 Heart rate 70 /min Loreta Cummings [facility] 08-19-2024 15:27-0500 Respiratory rate 18 /min Loreta Cummings [facility] 08-19-2024 15:27-0500 Systolic blood pressure 146 mm[Hg] Loreta Cummings [facility] 06-09-2024 13:26-0400 Blood Pressure Location Mario Evans [facility] 06-09-2024 13:26-0400 Diastolic blood pressure 77 mm[Hg] Martin Sarmini [facility] 06-09-2024 13:26-0400 Heart rate 72 /min Martin Sarmini [facility] 06-09-2024 13:26-0400 Systolic blood pressure 127 mm[Hg] Martin Sarmini [facility] 05-12-2024 15:35-0400 Blood Pressure Location Martin Sarmini [facility] 05-12-2024 15:35-0400 Diastolic blood pressure 72 mm[Hg] Martin Sarmini [facility] 05-12-2024 15:35-0400 Heart rate 77 /min Martin Sarmini [facility] 05-12-2024 15:35-0400 Systolic blood pressure 114 mm[Hg] Martin Sarmini [facility] 05-12-2024 09:36-0400 Body height 170.2 cm Radha Bertrand MD Work Phone: [facility] 05-12-2024 09:36-0400 Body mass index (BMI) [Ratio] 25.56 kg/m2 Radha Bertrand MD Work Phone: [facility] 05-12-2024 09:36-0400 Body weight 74.03 kg Radha Bertrand MD Work Phone: [facility] 05-12-2024 09:36-0400 Diastolic blood pressure 76 mm[Hg] Radha Bertrand MD Work Phone: [facility] 05-12-2024 09:36-0400 Heart rate 65 /min Radha Bertrand MD Work Phone: [facility] 05-12-2024 09:36-0400 SaO2% (BldA) [Mass fraction] 97 % Radha Bertrand MD Work Phone: [facility] 05-12-2024 09:36-0400 Systolic blood pressure 132 mm[Hg] Radha Bertrand MD Work Phone: [facility] 05-11-2024 09:08-0400 Body temperature 98.06 [degF] [facility] 05-11-2024 09:08-0400 Diastolic blood pressure 58 mm[Hg] [facility] 05-11-2024 09:08-0400 Heart rate 71 /min [facility] 05-11-2024 09:08-0400 Mean blood pressure 80 mm[Hg] [facility] 05-11-2024 09:08-0400 Respiratory rate 16 /min [facility] 05-11-2024 09:08-0400 SaO2% (BldA) [Mass fraction] 100 % [facility] 05-11-2024 09:08-0400 Systolic blood pressure 123 mm[Hg] [facility] 04-29-2024 09:05-0400 Blood Pressure Location Loreta Cummings [facility] 04-29-2024 09:05-0400 Body temperature 98.24 [degF] Loreta Cummings [facility] 04-29-2024 09:05-0400 Diastolic blood pressure 76 mm[Hg] Loreta Cummings [facility] 04-29-2024 09:05-0400 Heart rate 90 /min Loreta Cummings [facility] 04-29-2024 09:05-0400 Respiratory rate 18 /min Loreta Cummings [facility] 04-29-2024 09:05-0400 SaO2% (BldA) [Mass fraction] 99 % Loreta John [facility] 04-29-2024 09:05-0400 Systolic blood pressure 134 mm[Hg] Loreta John [facility] 04-21-2024 14:24-0400 Body height 170.2 cm [facility] 04-21-2024 14:24-0400 Body mass index (BMI) [Ratio] 24.28 kg/m2 [facility] 04-21-2024 14:24-0400 Body weight 70.31 kg [facility] 04-14-2024 08:37-0400 Body height 170.2 cm Radha Bertrand MD Work Phone: [facility] 04-14-2024 08:37-0400 Body mass index (BMI) [Ratio] 24.28 kg/m2 Radha Bertrand MD Work Phone: [facility] 04-14-2024 08:37-0400 Body weight 70.31 kg Radha Bertrand MD Work Phone: [facility] 04-14-2024 08:37-0400 Diastolic blood pressure 80 mm[Hg] Radha Bertrand MD Work Phone: [facility] 04-14-2024 08:37-0400 Heart rate 95 /min Radha Bertrand MD Work Phone: [facility] 04-14-2024 08:37-0400 SaO2% (BldA) [Mass fraction] 99 % Radha Bertrand MD Work Phone: [facility] 04-14-2024 08:37-0400 Systolic blood pressure 162 mm[Hg] Radha Bertrand MD Work Phone: [facility] 03-17-2024 14:22-0400 Blood Pressure Location Marc Ornelasdarlin [facility] 03-17-2024 14:22-0400 Diastolic blood pressure 82 mm[Hg] Marc Cecinus [facility] 03-17-2024 14:22-0400 Heart rate 66 /min Marc Cecinus [facility] 03-17-2024 14:22-0400 Respiratory rate 16 /min Marc Cecinus [facility] 03-17-2024 14:22-0400 SaO2% (BldA) [Mass fraction] 99 % Marc Cecinus [facility] 03-17-2024 14:22-0400 Systolic blood pressure 140 mm[Hg] Marc Cecinus [facility] 03-14-2024 09:29-0400 Body temperature 98.6 [degF] Ella Gonzales [facility] 03-14-2024 09:29-0400 Diastolic blood pressure 78 mm[Hg] Ella Gonzales [facility] 03-14-2024 09:29-0400 Heart rate 68 /min Ella Mohanke [facility] 03-14-2024 09:29-0400 Mean blood pressure 96 mm[Hg] Ella Mohanke [facility] 03-14-2024 09:29-0400 Respiratory rate 18 /min Ella Mohanke [facility] 03-14-2024 09:29-0400 SaO2% (BldA) [Mass fraction] 100 % Ella Mohanke [facility] 03-14-2024 09:29-0400 Systolic blood pressure 131 mm[Hg] Ella Mohanke [facility] 02-25-2024 09:10-0400 Body temperature 97.88 [degF] Ella Gonzales [facility] 02-25-2024 09:10-0400 Diastolic blood pressure 75 mm[Hg] Ella Gonzales [facility] 02-25-2024 09:10-0400 Heart rate 76 /min Ella Gonzales [facility] 02-25-2024 09:10-0400 Mean blood pressure 94 mm[Hg] Ella Gonzales [facility] 02-25-2024 09:10-0400 Respiratory rate 18 /min Ella Gonzales [facility] 02-25-2024 09:10-0400 SaO2% (BldA) [Mass fraction] 100 % Ella Gonzales [facility] 02-25-2024 09:10-0400 Systolic blood pressure 132 mm[Hg] Ella Gonzales [facility] 01-27-2024 09:42-0400 Blood Pressure Location Loreta Cummings [facility] 01-27-2024 09:42-0400 Body temperature 97.7 [degF] Loreta Cummings [facility] 01-27-2024 09:42-0400 Diastolic blood pressure 62 mm[Hg] Loreta Cummings [facility] 01-27-2024 09:42-0400 Heart rate 72 /min Loreta Cummings [facility] 01-27-2024 09:42-0400 Respiratory rate 14 /min Loreta Cummings [facility] 01-27-2024 09:42-0400 SaO2% (BldA) [Mass fraction] 99 % Loreta Cummings [facility] 01-27-2024 09:42-0400 Systolic blood pressure 130 mm[Hg] Loreta Cummings [facility] 12-23-2023 10:57-0400 Blood Pressure Location Loreta Cummings [facility] 12-23-2023 10:57-0400 Body temperature 97.7 [degF] Loreta Cummings [facility] 12-23-2023 10:57-0400 Diastolic blood pressure 62 mm[Hg] Loreta Cummings [facility] 12-23-2023 10:57-0400 Heart rate 76 /min Loreta Cummings [facility] 12-23-2023 10:57-0400 Respiratory rate 16 /min Loreta Cummings [facility] 12-23-2023 10:57-0400 SaO2% (BldA) [Mass fraction] 100 % Loreta Cummings [facility] 12-23-2023 10:57-0400 Systolic blood pressure 132 mm[Hg] Loreta Cummings [facility] 12-13-2023 11:54-0400 [facility] 12-13-[facility]23 11:54-0400 [facility] 12-13-2023 11:12-0400 Heart rate 81 /min [facility] 12-13-2023 11:12-0400 SaO2% (BldA) [Mass fraction] 100 % [facility] 12-13-2023 11:11-0400 Diastolic blood pressure 75 mm[Hg] [facility] 12-13-2023 11:11-0400 Mean blood pressure 93 mm[Hg] [facility] 12-13-2023 11:11-0400 Systolic blood pressure 128 mm[Hg] [facility] 12-13-2023 11:11-0400 Body temperature 97.88 [degF] [facility] 12-13-2023 10:31-0400 Hourly Rounding [facility] 12-13-2023 10:31-0400 Promise to Return [facility] 12-13-2023 09:26-0400 Hourly Rounding [facility] 12-13-2023 09:26-0400 [facility] 12-13-2023 07:12-0400 Heart rate 87 /min [facility] 12-13-2023 07:12-0400 SaO2% (BldA) [Mass fraction] 100 % [facility] 12-13-2023 07:11-0400 Diastolic blood pressure 68 mm[Hg] [facility] 12-13-2023 07:11-0400 Mean blood pressure 85 mm[Hg] [facility] 12-13-2023 07:11-0400 Systolic blood pressure 119 mm[Hg] [facility] 12-13-2023 07:11-0400 Body temperature 98.96 [degF] [facility] 12-13-2023 00:49-0400 Blood Pressure [facility] 12-13-2023 00:49-0400 Body temperature 98.78 [degF] [facility] 12-13-2023 00:49-0400 Diastolic blood pressure 73 mm[Hg] [facility] 12-13-2023 00:49-0400 Heart rate 100 /min [facility] 12-13-2023 00:49-0400 Mean blood pressure 95 mm[Hg] [facility] 12-13-2023 00:49-0400 Systolic blood pressure 138 mm[Hg] [facility] 12-12-2023 20:21-0400 Mean blood pressure 84 mm[Hg] [facility] 12-12-2023 04:00-0400 Mean blood pressure 86 mm[Hg] [facility] 12-12-2023 04:00-0400 Respiratory rate 16 /min [facility] 12-11-2023 23:41-0400 Blood Pressure [facility] 12-11-2023 23:41-0400 Mean blood pressure 81 mm[Hg] [facility] 12-11-2023 14:17-0400 Body temperature 98.06 [degF] [facility] 12-11-2023 14:17-0400 Heart rate 66 /min [facility] 12-11-2023 14:04-0400 Respiratory rate 18 /min [facility] 12-11-2023 13:30-0400 Respiratory rate 18 /min [facility] 12-11-2023 09:08-0400 Body temperature 97.7 [degF] [facility] 12-11-2023 09:08-0400 Heart rate 76 /min [facility] 11-11-2023 16:50-0500 Blood Pressure Location Mario Evans [facility] 11-11-2023 16:50-0500 Body temperature 98.06 [degF] Martin Sarmini [facility] 11-11-2023 16:50-0500 Diastolic blood pressure 83 mm[Hg] Martin Sarmini [facility] 11-11-2023 16:50-0500 Heart rate 60 /min Martin Sarmini [facility] 11-11-2023 16:50-0500 Mean blood pressure 105 mm[Hg] Martin Sarmini [facility] 11-11-2023 16:50-0500 Respiratory rate 12 /min Martin Sarmini [facility] 11-11-2023 16:50-0500 SaO2% (BldA) [Mass fraction] 100 % Martin Sarmini [facility] 11-11-2023 16:50-0500 Systolic blood pressure 149 mm[Hg] Martin Sarmini [facility] 11-11-2023 16:40-0500 Blood Pressure Location Martin Sarmini [facility] 11-11-2023 16:40-0500 Diastolic blood pressure 81 mm[Hg] Martin Sarmini [facility] 11-11-2023 16:40-0500 Heart rate 63 /min Martin Sarmini [facility] 11-11-2023 16:40-0500 Mean blood pressure 101 mm[Hg] Martin Sarmini [facility] 11-11-2023 16:40-0500 Respiratory rate 17 /min Martin Sarmini [facility] 11-11-2023 16:40-0500 SaO2% (BldA) [Mass fraction] 100 % Martin Sarmini [facility] 11-11-2023 16:40-0500 Systolic blood pressure 140 mm[Hg] Martin Sarmini [facility] 11-11-2023 16:35-0500 Blood Pressure Location Martin Sarmini [facility] 11-11-2023 16:35-0500 Diastolic blood pressure 75 mm[Hg] Martin Sarmini [facility] 11-11-2023 16:35-0500 Heart rate 74 /min Martin Sarmini [facility] 11-11-2023 16:35-0500 Mean blood pressure 96 mm[Hg] Martin Sarmini [facility] 11-11-2023 16:35-0500 Respiratory rate 14 /min Martin Sarmini [facility] 11-11-2023 16:35-0500 SaO2% (BldA) [Mass fraction] 100 % Martin Sarmini [facility] 11-11-2023 16:35-0500 Systolic blood pressure 138 mm[Hg] Martin Sarmini [facility] 11-11-2023 16:25-0500 Body temperature 98.24 [degF] Martin Sarmini [facility] 11-11-2023 16:20-0500 Respiratory rate 18 /min Martin Sarmini [facility] 11-11-2023 16:15-0500 Respiratory rate 19 /min Mario Gouldmini [facility] 11-11-2023 14:32-0500 Body temperature 97.16 [degF] Martin Bryannamini [facility] 10-28-2023 09:31-0500 Blood Pressure Location Loreta Cummings [facility] 10-28-2023 09:31-0500 Body temperature 97.88 [degF] Loreta Cummings [facility] 10-28-2023 09:31-0500 Diastolic blood pressure 70 mm[Hg] Loreta Cummings [facility] 10-28-2023 09:31-0500 Heart rate 76 /min Loreta Cummings [facility] 10-28-2023 09:31-0500 Respiratory rate 16 /min Loreta Cummings [facility] 10-28-2023 09:31-0500 SaO2% (BldA) [Mass fraction] 100 % Loreta Cummings [facility] 10-28-2023 09:31-0500 Systolic blood pressure 130 mm[Hg] Loreta Cummings [facility] 09-21-2023 14:24-0500 Blood Pressure Location Keith Patricia [facility] 09-21-2023 14:24-0500 Body temperature 98.06 [degF] Keith Patricia [facility] 09-21-2023 14:24-0500 Diastolic blood pressure 78 mm[Hg] Keith Patricia [facility] 09-21-2023 14:24-0500 Heart rate 73 /min Keith Patricia [facility] 09-21-2023 14:24-0500 Respiratory rate 18 /min Keith Patricia [facility] 09-21-2023 14:24-0500 SaO2% (BldA) [Mass fraction] 99 % Keith Patricia [facility] 09-21-2023 14:24-0500 Systolic blood pressure 156 mm[Hg] Keith Harshad [facility] 09-01-2023 12:16-0500 Diastolic blood pressure 80 mm[Hg] Martin Sarmini [facility] 09-01-2023 12:16-0500 Mean blood pressure 100 mm[Hg] Martin Sarmini [facility] 09-01-2023 12:16-0500 Systolic blood pressure 140 mm[Hg] Martin Sarmini [facility] 09-01-2023 12:12-0500 Blood Pressure Location Martin Sarmini [facility] 09-01-2023 12:12-0500 Diastolic blood pressure 82 mm[Hg] Martin Sarmini [facility] 09-01-2023 12:12-0500 Heart rate 80 /min Martin Sarmini [facility] 09-01-2023 12:12-0500 Respiratory rate 18 /min Martin Sarmini [facility] 09-01-2023 12:12-0500 Systolic blood pressure 142 mm[Hg] Mario Evans [facility] 08-26-2023 09:34-0500 Blood Pressure Location Loreta Cummings [facility] 08-26-2023 09:34-0500 Diastolic blood pressure 88 mm[Hg] Loreta Cummings [facility] 08-26-2023 09:34-0500 Heart rate 71 /min Loreta Cummings [facility] 08-26-2023 09:34-0500 Respiratory rate 18 /min Loreta Cummings [facility] 08-26-2023 09:34-0500 SaO2% (BldA) [Mass fraction] 100 % Loreta Cummings [facility] 08-26-2023 09:34-0500 Systolic blood pressure 150 mm[Hg] Loreta Cummings [facility] 07-24-2023 07:37-0500 Blood Pressure Location Loreta Cummings [facility] 07-24-2023 07:37-0500 Diastolic blood pressure 76 mm[Hg] Loreta Cummings [facility] 07-24-2023 07:37-0500 Heart rate 79 /min Loreta Cummings [facility] 07-24-2023 07:37-0500 Respiratory rate 16 /min Loreta Cummings [facility] 07-24-2023 07:37-0500 SaO2% (BldA) [Mass fraction] 100 % Loreta John [facility] 07-24-2023 07:37-0500 Systolic blood pressure 132 mm[Hg] Loreta Cummings [facility] 06-19-2023 12:23-0400 Body temperature 97.88 [degF] Teddy Luna [facility] 06-19-2023 12:23-0400 Diastolic blood pressure 105 mm[Hg] Teddy Luna [facility] 06-19-2023 12:23-0400 Heart rate 70 /min Teddy Luna [facility] 06-19-2023 12:23-0400 Respiratory rate 18 /min Teddy Luna [facility] 06-19-2023 12:23-0400 SaO2% (BldA) [Mass fraction] 98 % Teddy Luna [facility] 06-19-2023 12:23-0400 Systolic blood pressure 165 mm[Hg] Teddy Luna [facility] 04-24-2023 11:00-0400 Body height 170.18 cm Jarrod Eddy Other [facility] Other 04-24-2023 11:00-0400 Body mass index (BMI) [Ratio] 26.94 kg/m2 Jarrod Eddy Other [facility] Other 04-24-2023 11:00-0400 Body temperature 97.4 [degF] Jarrod Eddy Other [facility] Other 04-24-2023 11:00-0400 Body weight 78.02 kg Jarrod Eddy Other [facility] Other 04-24-2023 11:00-0400 Diastolic blood pressure 70 mm[Hg] Jarrod Eddy Other [facility] Other 04-24-2023 11:00-0400 SaO2% (BldA) [Mass fraction] 99 % Jarrod Eddy Other [facility] Other 04-24-2023 11:00-0400 Systolic blood pressure 138 mm[Hg] Jarrod Dillarddanish Other [facility] Other 04-21-2023 09:38-0400 Body height 170.2 cm Tanvir Black MD Work Phone: [facility] 04-21-2023 09:38-0400 Body mass index (BMI) [Ratio] 27.08 kg/m2 Tanvir Black MD Work Phone: [facility] 04-21-2023 09:38-0400 Body temperature 97.7 [degF] Tanvir Black MD Work Phone: [facility] 04-21-2023 09:38-0400 Body weight 78.43 kg Tanvir Black MD Work Phone: [facility] 04-21-2023 09:38-0400 Diastolic blood pressure 67 mm[Hg] Tanvir Black MD Work Phone: [facility] 04-21-2023 09:38-0400 Heart rate 79 /min Tanvir Black MD Work Phone: [facility] 04-21-2023 09:38-0400 Respiratory rate 20 /min Tanvir Black MD Work Phone: [facility] 04-21-2023 09:38-0400 SaO2% (BldA) [Mass fraction] 100 % Tanvir Black MD Work Phone: [facility] 04-21-2023 09:38-0400 Systolic blood pressure 136 mm[Hg] Tanvir Paul MULTANI Work Phone: [facility] 03-22-2023 21:05-0400 Diastolic blood pressure 80 mm[Hg] Martin Mary Ann [facility] 03-22-2023 21:05-0400 Heart rate 88 /min Martin Mary Ann [facility] 03-22-2023 21:05-0400 Hourly Rounding Martin Mary Ann [facility] 03-22-2023 21:05-0400 Promise to Return Martin Mary Ann [facility] 03-22-2023 21:05-0400 Respiratory rate 18 /min Martin Mary Ann [facility] 03-22-2023 21:05-0400 SaO2% (BldA) [Mass fraction] 100 % Martin Mary Ann [facility] 03-22-2023 21:05-0400 Systolic blood pressure 148 mm[Hg] Martin Mary Ann [facility] 03-22-2023 20:07-0400 Body temperature 97.7 [degF] Martin Mary Ann [facility] 03-22-2023 20:07-0400 Diastolic blood pressure 84 mm[Hg] Martin Mary Ann [facility] 03-22-2023 20:07-0400 Heart rate 92 /min Martin Mary Ann [facility] 03-22-2023 20:07-0400 Respiratory rate 18 /min Martin Mary Ann [facility] 03-22-2023 20:07-0400 SaO2% (BldA) [Mass fraction] 100 % Martin Reese [facility] 03-22-2023 20:07-0400 Systolic blood pressure 151 mm[Hg] Martin Reese [facility] 02-18-2023 09:11-0400 Diastolic blood pressure 70 mm[Hg] Brent Sanches [facility] 02-18-2023 09:11-0400 Heart rate 82 /min Brent Myron [facility] 02-18-2023 09:11-0400 Mean blood pressure 91 mm[Hg] Brent Myron [facility] 02-18-2023 09:11-0400 Respiratory rate 16 /min Brent Myron [facility] 02-18-2023 09:11-0400 SaO2% (BldA) [Mass fraction] 98 % Brent Myron [facility] 02-18-2023 09:11-0400 Systolic blood pressure 132 mm[Hg] Brent Myron [facility] 02-18-2023 07:45-0400 Body temperature 98.96 [degF] Brent Myron [facility] 02-18-2023 07:45-0400 Diastolic blood pressure 80 mm[Hg] Brent Myron [facility] 02-18-2023 07:45-0400 Heart rate 95 /min Brent Myron [facility] 02-18-2023 07:45-0400 Respiratory rate 16 /min Brent Myron [facility] 02-18-2023 07:45-0400 SaO2% (BldA) [Mass fraction] 100 % Brent Myron [facility] 02-18-2023 07:45-0400 Systolic blood pressure 153 mm[Hg] Brent Sanches [facility] 01-20-2023 12:00-0400 Diastolic blood pressure 71 mm[Hg] 1 [facility] 01-20-2023 12:00-0400 Heart rate 78 /min 1 [facility] 01-20-2023 12:00-0400 Respiratory rate 16 /min 1 [facility] 01-20-2023 12:00-0400 SaO2% (BldA) [Mass fraction] 94 % 1 [facility] 01-20-2023 12:00-0400 Systolic blood pressure 118 mm[Hg] 1 [facility] 01-20-2023 07:30-0400 Body temperature 98.71 [degF] 1 [facility] 01-12-2023 09:49-0400 Body height 170.2 cm [facility] Black [facility] 01-12-2023 09:49-0400 Body mass index (BMI) [Ratio] 27.28 kg/m2 Tanvir Black MD Work Phone: [facility] 01-12-2023 09:49-0400 Body temperature 96.6 [degF] Tanvir Black MD Work Phone: [facility] 01-12-2023 09:49-0400 Body weight 79.02 kg Tanvir Black MD [facility] 01-12-2023 09:49-0400 Diastolic blood pressure 56 mm[Hg] Tanvir Black MD Work Phone: [facility] 01-12-2023 09:49-0400 Heart rate 79 /min Tanvir Black MD Work Phone: [facility] 01-12-2023 09:49-0400 Respiratory rate 20 /min Tanvir Blakc MD Work Phone: [facility] 01-12-2023 09:49-0400 SaO2% (BldA) [Mass fraction] 100 % Tanvir Black MD Work Phone: [facility] 01-12-2023 09:49-0400 Systolic blood pressure 121 mm[Hg] Tanvir Black MD [facility] 01-12-2023 08:58-0400 Body mass index (BMI) [Ratio] 27.41 kg/m2 Marcello Ibanez MD Work Phone: [facility] 01-12-2023 08:58-0400 Body temperature 96.6 [degF] Marcello Ibanez MD Work Phone: [facility] 01-12-2023 08:58-0400 Body weight 79.38 kg Marcello Ibanez MD Work Phone: [facility] 01-12-2023 08:58-0400 Diastolic blood pressure 56 mm[Hg] Marcello Ibanez MD Work Phone: [facility] 01-12-2023 08:58-0400 Heart rate 79 /min Marcello Ibanez MD Work Phone: [facility] 01-12-2023 08:58-0400 Systolic blood pressure 121 mm[Hg] Marcello Ibanez MD Work Phone: [facility] 12-16-2022 09:49-0400 Body height 170.2 cm Dejuan Lechuga MD [facility] 12-16-2022 09:49-0400 Body mass index (BMI) [Ratio] 28.05 kg/m2 Dejuan Lechuga MD Work Phone: [facility] 12-16-2022 09:49-0400 Body weight 81.24 kg Dejuan Lechuga MD Work Phone: [facility] 12-16-2022 09:49-0400 Diastolic blood pressure 57 mm[Hg] Dejuna Lechuga MD Work Phone: [facility] 12-16-2022 09:49-0400 Heart rate 85 /min Dejuan Lechuga MD Work Phone: [facility] 12-16-2022 09:49-0400 SaO2% (BldA) [Mass fraction] 100 % Dejuan Lechuga MD Work Phone: [facility] 12-16-2022 09:49-0400 Systolic blood pressure 113 mm[Hg] Dejuan Lechuga MD Work Phone: [facility] 11-13-2022 11:23-0500 Body mass index (BMI) [Ratio] 26.63 kg/m2 Tanvir Black MD Work Phone: [facility] 11-13-2022 11:23-0500 Body temperature 98.6 [degF] Tanvir Black MD Work Phone: [facility] 11-13-2022 11:23-0500 Body weight 77.11 kg Tanvir Black MD Work Phone: [facility] 11-13-2022 11:23-0500 Diastolic blood pressure 62 mm[Hg] Tanvir Black MD Work Phone: [facility] 11-13-2022 11:23-0500 Heart rate 86 /min Tanvir Black MD Work Phone: [facility] 11-13-2022 11:23-0500 Respiratory rate 14 /min Tanvir Black MD Work Phone: [facility] 11-13-2022 11:23-0500 SaO2% (BldA) [Mass fraction] 100 % Tanvir Black MD Work Phone: [facility] 11-13-2022 11:23-0500 Systolic blood pressure 153 mm[Hg] Tanvir Black MD Work Phone: [facility] 10-27-2022 09:49-0500 Body mass index (BMI) [Ratio] 26.59 kg/m2 Marcello Ibanez MD Work Phone: [facility] 10-27-2022 09:49-0500 Body temperature 97.5 [degF] Marcello Ibanez MD Work Phone: [facility] 10-27-2022 09:49-0500 Body weight 77.02 kg Marcello Ibanez MD Work Phone: [facility] 10-27-2022 09:49-0500 Diastolic blood pressure 55 mm[Hg] Marcello Ibanez MD Work Phone: [facility] 10-27-2022 09:49-0500 Heart rate 84 /min Marcello Ibanez MD Work Phone: [facility] 10-27-2022 09:49-0500 SaO2% (BldA) [Mass fraction] 100 % Marcello Ibanez MD Work Phone: [facility] 10-27-2022 09:49-0500 Systolic blood pressure 128 mm[Hg] Marcello Ibanez MD Work Phone: [facility] 08-25-2022 13:44-0500 Body mass index (BMI) [Ratio] 26.78 kg/m2 Theo Burks MD Work Phone: [facility] 08-25-2022 13:44-0500 Body temperature 98.49 [degF] Theo Burks MD Work Phone: [facility] 08-25-2022 13:44-0500 Body weight 77.56 kg Theo Burks MD Work Phone: [facility] 08-25-2022 13:44-0500 Diastolic blood pressure 65 mm[Hg] Theo Burks MD Work Phone: [facility] 08-25-2022 13:44-0500 Heart rate 69 /min Theo Burks MD Work Phone: [facility] 08-25-2022 13:44-0500 Respiratory rate 18 /min Theo Burks MD Work Phone: [facility] 08-25-2022 13:44-0500 SaO2% (BldA) [Mass fraction] 99 % Theo Burks MD Work Phone: [facility] 08-25-2022 13:44-0500 Systolic blood pressure 132 mm[Hg] Theo Burks MD Work Phone: [facility] 08-25-2022 10:42-0500 Body mass index (BMI) [Ratio] 26.94 kg/m2 Abbey Alvarez MD Work Phone: [facility] 08-25-2022 10:42-0500 Body temperature 98.2 [degF] Abbey Alvarez MD Work Phone: [facility] 08-25-2022 10:42-0500 Body weight 78.02 kg Abbey Alvarez MD Work Phone: [facility] 08-25-2022 10:42-0500 Diastolic blood pressure 50 mm[Hg] Abbey Alvarez MD Work Phone: [facility] 08-25-2022 10:42-0500 Heart rate 82 /min Abbey Alvarez MD Work Phone: [facility] 08-25-2022 10:42-0500 Systolic blood pressure 129 mm[Hg] Abbey Alvarez MD Work Phone: [facility] 08-15-2022 15:50-0500 Heart rate 78 /min Ann-Marie Bonner MD Work Phone: [facility] 08-15-2022 15:50-0500 Respiratory rate 14 /min Ann-Marie Bonner MD Work Phone: [facility] 08-15-2022 15:50-0500 SaO2% (BldA) [Mass fraction] 98 % Ann-Marie Bonner MD Work Phone: [facility] 08-15-2022 12:51-0500 Body mass index (BMI) [Ratio] 20.52 kg/m2 Ann-Marie Bonner MD Work Phone: [facility] 08-15-2022 12:51-0500 Body temperature 98.49 [degF] Ann-Marie Bonner MD Work Phone: [facility] 08-15-2022 12:51-0500 Body weight 59.42 kg Ann-Marie Bonner MD Work Phone: [facility] 08-15-2022 12:51-0500 Diastolic blood pressure 70 mm[Hg] Ann-Marie Bonner MD Work Phone: [facility] 08-15-2022 12:51-0500 Systolic blood pressure 147 mm[Hg] Ann-Marie Bonner MD Work Phone: [facility] 08-15-2022 10:16-0500 Body mass index (BMI) [Ratio] 26.72 kg/m2 Nenita Franco MD Work Phone: [facility] 08-15-2022 10:16-0500 Body temperature 98.6 [degF] Nenita Franco MD Work Phone: [facility] 08-15-2022 10:16-0500 Body weight 77.38 kg Nenita Franco MD Work Phone: [facility] 08-15-2022 10:16-0500 Diastolic blood pressure 56 mm[Hg] Nenita Franco MD Work Phone: [facility] 08-15-2022 10:16-0500 Heart rate 85 /min Nenita Franco MD Work Phone: [facility] 08-15-2022 10:16-0500 Respiratory rate 18 /min Nenita Franco MD Work Phone: [facility] 08-15-2022 10:16-0500 SaO2% (BldA) [Mass fraction] 100 % Nenita Franco MD Work Phone: [facility] 08-15-2022 10:16-0500 Systolic blood pressure 136 mm[Hg] Nenita Franco MD Work Phone: [facility] 08-14-2022 13:12-0500 Diastolic blood pressure 60 mm[Hg] Saskia Madison APRN-[employer] Work Phone: [facility] 08-14-2022 13:12-0500 Systolic blood pressure 128 mm[Hg] Saskia Madison APRN-[employer] CAPTAIN Work Phone: [facility] 08-14-2022 13:10-0500 Body mass index (BMI) [Ratio] 27.1 kg/m2 Saskia Madison APRN-[employer]TAIN [facility]: [facility] 08-14-2022 13:10-0500 Body temperature 98.2 [degF] Saskia Madison APRN-[employer] CAPTAIN [facility] 08-14-2022 13:10-0500 Body weight 78.47 kg Saskia Madison APRN-[employer] CAPTAIN Work Phone: [facility] 08-14-2022 13:10-0500 Heart rate 84 /min Saskia Madison APRN-[employer] CAPTAIN Work Phone: [facility] 08-14-2022 11:51-0500 Body height 170.2 cm Tanvir Black MD Work Phone: [facility] 08-14-2022 11:51-0500 Body mass index (BMI) [Ratio] 26.78 kg/m2 Tanvir Black MD Work Phone: [facility] 08-14-2022 11:51-0500 Body temperature 99.19 [degF] Tanvir Black MD Work Phone: [facility] 08-14-2022 11:51-0500 Body weight 77.56 kg Tanvir Black MD Work Phone: [facility] 08-14-2022 11:51-0500 Diastolic blood pressure 60 mm[Hg] Tanvir Black MD Work Phone: [facility] 08-14-2022 11:51-0500 Heart rate 90 /min Tanvir Black MD Work Phone: [facility] 08-14-2022 11:51-0500 Respiratory rate 14 /min Tanvir Black MD Work Phone: [facility] 08-14-2022 11:51-0500 SaO2% (BldA) [Mass fraction] 100 % Tanvir Black MD Work Phone: [facility] 08-14-2022 11:51-0500 Systolic blood pressure 141 mm[Hg] Tanvir Black MD Work Phone: [facility] 05-06-2022 10:03-0400 Body height 170.2 cm Tanvir Blcak MD Work Phone: [facility] 05-06-2022 10:03-0400 Body mass index (BMI) [Ratio] 26.78 kg/m2 Tanvir Black MD Work Phone: [facility] 05-06-2022 10:03-0400 Body temperature 98.4 [degF] Tanvir Black MD Work Phone: [facility] 05-06-2022 10:03-0400 Body weight 77.56 kg Tanvir Black MD Work Phone: [facility] 05-06-2022 10:03-0400 Diastolic blood pressure 70 mm[Hg] Tanvir Black MD Work Phone: [facility] 05-06-2022 10:03-0400 Heart rate 75 /min Tanvir Black MD Work Phone: [facility] 05-06-2022 10:03-0400 Respiratory rate 16 /min Tanvir Black MD Work Phone: [facility] 05-06-2022 10:03-0400 SaO2% (BldA) [Mass fraction] 100 % Tanvir Black MD Work Phone: [facility] 05-06-2022 10:03-0400 Systolic blood pressure 137 mm[Hg] Tanvir Black MD Work Phone: [facility] 03-13-2022 11:39-0400 Body mass index (BMI) [Ratio] 25.84 kg/m2 Tanvir Black MD Work Phone: [facility] 03-13-2022 11:39-0400 Body temperature 98.49 [degF] Tanvir Black MD Work Phone: [facility] 03-13-2022 11:39-0400 Body weight 74.84 kg Tanvir Black MD Work Phone: [facility] 03-13-2022 11:39-0400 Diastolic blood pressure 69 mm[Hg] Tanvir Black MD Work Phone: [facility] 03-13-2022 11:39-0400 Heart rate 85 /min Tanvir Black MD Work Phone: [facility] 03-13-2022 11:39-0400 Respiratory rate 14 /min Tanvir Black MD Work Phone: [facility] 03-13-2022 11:39-0400 SaO2% (BldA) [Mass fraction] 100 % Tanvir Black MD [facility] 03-13-2022 11:39-0400 Systolic blood pressure 137 mm[Hg] Tanvir Black MD Work Phone: [facility] 02-17-2022 16:07-0400 Diastolic blood pressure 76 mm[Hg] [facility] 02-17-2022 16:07-0400 Heart rate 84 /min [facility] 02-17-2022 16:07-0400 Mean blood pressure 94 mm[Hg] [facility] 02-17-2022 16:07-0400 Respiratory rate 18 /min [facility] 02-17-2022 16:07-0400 SaO2% (BldA) [Mass fraction] 98 % [facility] 02-17-2022 16:07-0400 Systolic blood pressure 129 mm[Hg] [facility] 02-17-2022 15:18-0400 Diastolic blood pressure 75 mm[Hg] [facility] 02-17-2022 15:18-0400 Heart rate 79 /min [facility] 02-17-2022 15:18-0400 Mean blood pressure 92 mm[Hg] [facility] 02-17-2022 15:18-0400 Respiratory rate 16 /min [facility] 02-17-2022 15:18-0400 SaO2% (BldA) [Mass fraction] 99 % [facility] 02-17-2022 15:18-0400 Systolic blood pressure 126 mm[Hg] [facility] 02-17-2022 14:58-0400 Diastolic blood pressure 76 mm[Hg] [facility] 02-17-2022 14:58-0400 Heart rate 79 /min [facility] 02-17-2022 14:58-0400 Mean blood pressure 99 mm[Hg] [facility] 02-17-2022 14:58-0400 Respiratory rate 18 /min [facility] 02-17-2022 14:58-0400 SaO2% (BldA) [Mass fraction] 100 % [facility] 02-17-2022 14:58-0400 Systolic blood pressure 144 mm[Hg] [facility] 02-17-2022 12:30-0400 Body temperature 98.24 [degF] [facility] 02-17-2022 12:30-0400 Heart rate 101 /min [facility] 02-17-2022 12:30-0400 Respiratory rate 18 /min [facility] 02-11-2022 10:22-0400 Body height 170.2 cm Tanvir Black MD Work Phone: [facility] 02-11-2022 10:22-0400 Body mass index (BMI) [Ratio] 26.16 kg/m2 Tanvir Black MD Work Phone: [facility] 02-11-2022 10:22-0400 Body temperature 98.2 [degF] Tanvir Black MD Work Phone: [facility] 02-11-2022 10:22-0400 Body weight 75.75 kg Tanvir Black MD Work Phone: [facility] 02-11-2022 10:22-0400 Diastolic blood pressure 81 mm[Hg] Tanvir Black MD Work Phone: [facility] 02-11-2022 10:22-0400 Heart rate 103 /min Tanvir Black MD Work Phone: [facility] 02-11-2022 10:22-0400 Respiratory rate 16 /min Tanvir Black MD Work Phone: [facility] 02-11-2022 10:22-0400 SaO2% (BldA) [Mass fraction] 100 % Tanvir Black MD Work Phone: [facility] 02-11-2022 10:22-0400 Systolic blood pressure 157 mm[Hg] Tanvir Black MD Work Phone: [facility] 01-17-2022 14:20-0400 Body temperature 98.29 [degF] Francisco Marino MD Work Phone: [facility] 01-17-2022 14:20-0400 Diastolic blood pressure 56 mm[Hg] Francisco Marino MD Work Phone: [facility] 01-17-2022 14:20-0400 Heart rate 83 /min Francisco Marino MD Work Phone: [facility] 01-17-2022 14:20-0400 Respiratory rate 18 /min Francisco Marino MD Work Phone: [facility] 01-17-2022 14:20-0400 SaO2% (BldA) [Mass fraction] 100 % Francisco Marino MD Work Phone: [facility] 01-17-2022 14:20-0400 Systolic blood pressure 125 mm[Hg] Francisco Marino MD Work Phone: [facility] 01-17-2022 06:00-0400 Body mass index (BMI) [Ratio] 22.77 kg/m2 Francisco [facility]ino [facility] 01-17-2022 06:00-0400 Body weight 65.95 kg Francisco Marino MD [facility] 01-10-2022 18:36-0400 Heart rate 96 /min Francisco Marino MD [facility]: [facility] 01-08-2022 21:47-0400 Heart rate 76 /min Francisco Marino MD [facility] 01-08-2022 14:00-0400 Hourly Rounding Aldair Ila [facility] 01-08-2022 14:00-0400 Promise to Return Aldair Ila [facility] 01-08-2022 14:00-0400 SaO2% (BldA) [Mass fraction] 100 % Aldair Ila [facility] 01-08-2022 08:00-0400 Body height 170.2 cm Francisco Marino MD Work Phone: [facility] 01-08-2022 05:00-0400 Diastolic blood pressure 70 mm[Hg] Aldair Ila [facility] 01-08-2022 05:00-0400 Heart rate 87 /min Aldair Ila [facility] 01-08-2022 05:00-0400 Mean blood pressure 91 mm[Hg] Aldair Ila [facility] 01-08-2022 05:00-0400 Respiratory rate 18 /min Aldair Ila [facility] 01-08-2022 05:00-0400 Systolic blood pressure 134 mm[Hg] Aldair Ila [facility] 01-08-2022 04:00-0400 Body temperature 98.96 [degF] Aldair Ila [facility] 01-08-2022 04:00-0400 Diastolic blood pressure 74 mm[Hg] Aldair Ila [facility] 01-08-2022 04:00-0400 Heart rate 96 /min Aldair Ila [facility] 01-08-2022 04:00-0400 Mean blood pressure 90 mm[Hg] Aldair Ila [facility] 01-08-2022 04:00-0400 Respiratory rate 20 /min Aldair Ila [facility] 01-08-2022 04:00-0400 SaO2% (BldA) [Mass fraction] 97 % Aldair Ila [facility] 01-08-2022 04:00-0400 Systolic blood pressure 122 mm[Hg] Aldair Ila [facility] 01-08-2022 03:00-0400 Diastolic blood pressure 72 mm[Hg] Aldair Ila [facility] 01-08-2022 03:00-0400 Heart rate 80 /min Aldair Ila [facility] 01-08-2022 03:00-0400 SaO2% (BldA) [Mass fraction] 98 % Aldair Ila [facility] 01-08-2022 03:00-0400 Systolic blood pressure 126 mm[Hg] Aldair Ila [facility] 01-08-2022 00:00-0400 Body temperature 98.42 [degF] Aldair Ila [facility] 01-07-2022 20:30-0400 Body temperature 98.06 [degF] Aldair Ila [facility] 01-07-2022 20:00-0400 Blood Pressure Location Aldair Galiciaer [facility] 01-07-2022 19:13-0400 Heart rate 112 /min Aldair Galiciaer [facility] 01-07-2022 19:00-0400 Blood Pressure Location Aldair Galiciaer [facility] 01-07-2022 18:00-0400 Blood Pressure Location Aldair Thorpe [facility] 01-07-2022 17:04-0400 Heart rate 110 /min Aldair Galiciaer [facility] 01-07-2022 14:32-0400 Heart rate 117 /min [facility] Ila [facility] Encounters Encounter Date Encounter Type Care Provider [...] End: 01-12-2025 ambulatory Vic Ramos [place] [place]: 01-12-2025 End: 01-12-2025 Patient encounter procedure Evelio Carr [facility] Start: 01-03-2025 End: 01-03-2025 ambulatory Evelio Carr [place] Start: 01-03-2025 End: 01-03-2025 Pain Management Evelio Carr [facility] Start: 12-21-2024 End: 12-21-2024 ambulatory Vic Ramos Facility:[facility] Start: 12-20-2024 End: 12-20-2024 ambulatory Vic Ramos [place] Start: 12-20-2024 End: 12-20-2024 Patient encounter procedure Sadie Loco [facility] Start: 11-28-2024 End: 11-29-2024 ambulatory Sadie Loco [place] Start: 11-28-2024 End: 11-29-2024 Patient encounter procedure Sadie Loco [facility] Start: 11-21-2024 End: 11-21-2024 ambulatory Sadie Loco [place] Start: 11-21-2024 End: 11-21-2024 Patient encounter procedure Sadie Loco [facility] Start: 11-21-2024 End: 11-21-2024 ambulatory Mario Evans Facility:[facility] Start: 11-21-2024 End: 11-21-2024 Patient encounter procedure Sadie Loco [facility] Start: 11-18-2024 End: 11-18-2024 Patient encounter procedure Keith Patricia [facility] Start: 11-18-2024 End: 11-18-2024 ambulatory Keith Patricia [place] Start: 11-18-2024 End: 11-18-2024 ambulatory Mario Marreroi [place] Start: 11-18-2024 End: 11-18-2024 Patient encounter procedure Mario Evans [facility] Start: 11-11-2024 End: 11-11-2024 ambulatory Mario Marreroi [place] Start: 11-09-2024 End: 11-09-2024 ambulatory Evelio CarmelinaSarah Carr [place] Start: 11-09-2024 End: 11-09-2024 Patient encounter procedure Evelio Carr [facility] Start: 10-26-2024 End: 10-26-2024 ambulatory Evelio Carr [place] Start: 10-26-2024 End: 10-26-2024 Patient encounter procedure Evelio Carr [facility] Start: 10-05-2024 End: 10-05-2024 ambulatory Vic Ramos Facility:[facility] Start: 10-05-2024 End: 10-05-2024 Patient encounter procedure Vic Ramos TOOL CLERK-C [facility] Start: 09-29-2024 End: 09-29-2024 ambulatory Kavon Lu [place] Start: 09-29-2024 End: 09-29-2024 Patient encounter procedure Kavon Lu [facility] Start: 09-16-2024 End: 09-16-2024 ambulatory Kavon Lu [place] Start: 09-16-2024 End: 09-16-2024 Patient encounter procedure Kavon Lu [facility] Start: 08-19-2024 End: 08-19-2024 ambulatory Loreta Cummings [facility] Start: 08-19-2024 End: 08-19-2024 Patient encounter procedure Loreta Cummings [facility] Start: 08-11-2024 End: 08-11-2024 ambulatory Kavon Lu [place] Start: 08-11-2024 End: 08-11-2024 Patient encounter procedure Kavon Lu [facility] Start: 07-09-2024 End: 07-09-2024 ambulatory Kavon Lu [place] Start: 07-09-2024 End: 07-09-2024 Patient encounter procedure Kavon Lu [facility] Start: 06-09-2024 End: 06-09-2024 ambulatory Martin Talal Sarmini Facility:[facility] Start: 06-09-2024 End: 06-09-2024 Patient encounter procedure Martin Talal Sarmini [facility] Start: 05-24-2024 End: 05-24-2024 ambulatory Martin Talal Sarmini [place] Start: 05-24-2024 End: 05-24-2024 Patient encounter procedure Martin Talal Sarmini [facility] Start: 05-20-2024 ambulatory Loreta Cummings Facil [facility]y:[facility] Start: 05-12-2024 End: 05-12-2024 ambulatory Martin Talal Sarmini Facility:[facility] Start: 05-12-2024 End: 05-12-2024 Patient encounter procedure Martin Talal Sarmini [facility] Start: 05-12-2024 End: 05-12-2024 Office outpatient visit 15 minutes Radha Bertrand MD Work Phone: [facility] Comment on above: Lymphedema (Primary Dx) Start: 05-11-2024 End: 05-11-2024 ambulatory Ella Gonzales [place] Start: 05-11-2024 End: 05-11-2024 Patient encounter procedure Kavon Lu [facility] Start: 05-06-2024 End: 05-06-2024 ambulatory Kavon Lu [place] Start: 05-06-2024 End: 05-06-2024 Patient encounter procedure Kavon Lu [facility] Start: 04-29-2024 End: 04-29-2024 ambulatory Loreta Cummings Facility:[facility] Start: 04-29-2024 End: 04-29-2024 Patient encounter procedure Loreta Cummings [facility] Start: 04-27-2024 End: 04-27-2024 Evaluation and management of inpatient [facility] Start: 04-26-2024 End: 04-27-2024 Evaluation and management of inpatient [facility] Start: 04-26-2024 End: 04-26-2024 Evaluation and management of inpatient [facility] Start: 04-21-2024 End: 04-21-2024 Admission to [facility] Phone Call Provider 2 [facility] Start: 04-21-2024 End: 04-21-2024 Evaluation and management of inpatient LORETA CUMMINGS [facility] Start: 04-15-2024 ambulatory Loreta Cummings Facil ity:[facility] Start: 04-14-2024 End: 04-14-2024 Orders Only [facility] Start: 04-14-2024 End: 04-14-2024 Office outpatient new 45 minutes Radha Bertrand MD Work Phone: [facility] Comment on above: Varicose veins of laith th lower extremities with pain (Primary Dx); AVM (arteriovenous malformation) Start: 04-13-2024 End: 04-29-2024 Pre-admission assessment Kavon Bowmanronan [facility] Start: 04-05-2024 End: 04-29-2024 ambulatory Loreta Cummings Facility::[id number] Start: 03-17-2024 End: 03-17-2024 ambulatory Loreta Cummings [place] Start: 03-17-2024 End: 03-17-2024 Patient encounter procedure Marc Liz [facility] Start: 03-14-2024 End: 03-14-2024 ambulatory [facility] Ella Crainstefany [place] Start: 03-14-2024 End: 03-14-2024 Patient encounter procedure Ella Crainstefany [facility] Start: 03-02-2024 End: 03-02-2024 ambulatory Ella Crainsharadarcy [place] Start: 03-02-2024 End: 03-02-2024 Patient encounter procedure Ella Crainstefany [facility] Start: 02-25-2024 End: 02-25-2024 ambulatory Loreta Cummings [place] [place]: 02-25-2024 End: 02-25-2024 Patient encounter procedure Ella Crainsharadarcy [facility] Start: 02-20-2024 End: 02-20-2024 ambulatory [facility] Ella Crainsharadarcy [place] Start: 02-20-2024 End: 02-20-2024 Patient encounter procedure Ella Gonzales [facility] Start: 02-06-2024 End: 02-08-2024 Refill Marcello Ibanez MD Work Phone: [facility] Comment on above: Refill Start: 01-27-2024 End: 01-27-2024 ambulatory Loreta Cummings Facility:[facility] Start: 01-27-2024 End: 01-27-2024 Patient encounter procedure Loreta Cummings [facility] Start: 12-31-2023 End: 12-31-2023 ambulatory Loreta Cummings [place] Start: 12-31-2023 End: 12-31-2023 Patient encounter procedure Loreta Cummings [facility] Start: 12-30-2023 End: 12-30-2023 ambulatory JOSIANE MCCULLOUGH Facility:[facility] Start: 12-30-2023 End: 12-30-2023 Patient encounter procedure Margaret Zuñiga MD Work Phone: General Surgery Comment on above: Gallstones (Primary Dx) Start: 12-23-2023 End: 12-23-2023 ambulatory Loreta Cummings Facility:[facility] Start: 12-23-2023 End: 12-23-2023 Patient encounter procedure Loreta Cummings [facility] Start: 12-21-2023 End: 12-21-2023 ambulatory Loreta Cummings [place] Start: 12-21-2023 End: 12-21-2023 Patient encounter procedure Loreta Cummings [facility] Start: 12-14-2023 End: 01-13-2024 ambulatory Loreta Cummings Facility:[id number] Start: 12-11-2023 End: 12-13-2023 Observation Desi Mena [facility] Start: 12-11-2023 End: 12-11-2023 Patient encounter procedure Loreta Cummings [facility] Start: 11-11-2023 End: 11-11-2023 Patient encounter procedure Mario Gouldmini [facility] Start: 10-28-2023 End: 10-28-2023 Patient encounter procedure Loreta Cummings [facility] Start: 10-01-2023 End: 10-01-2023 Subsequent hospital visit by physician Tanvir Black MD Work Phone: [facility] Comment on above: 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) Start: 10-01-2023 End: 10-01-2023 Patient encounter procedure Loreta Cummings [facility] Start: 10-01-2023 End: 10-01-2023 ambulatory THEO BURKS Facility:[facility] Start: 09-27-2023 Letter encounter Theo bright MD Work Phone: [facility] Start: 09-21-2023 End: 09-21-2023 Patient encounter procedure Keith Patricia [facility] Start: 09-03-2023 End: 09-03-2023 Patient encounter procedure Mario Xiong Sarmini [facility] Start: 09-01-2023 End: 09-01-2023 Patient encounter procedure Mario Evans [facility] Start: 08-26-2023 End: 08-26-2023 Patient encounter procedure Loreta Cummings [facility] Start: 08-25-2023 Refill Tanvir Black MD Work Phone: [facility] Comment on above: Refill Start: 08-06-2023 End: 08-06-2023 Patient encounter procedure Teddy Hitchcock [facility] Start: 08-03-2023 End: 11-01-2023 Recurring Loreta Cummings [facility] Start: 07-24-2023 End: 07-24-2023 Lab Drop off Loreta Cummings [facility] Start: 07-24-2023 End: 07-24-2023 Patient encounter procedure Loreta Cummings [facility] Start: 07-23-2023 End: 07-23-2023 Patient encounter procedure Teddy Hitchcock [facility] Start: 07-20-2023 E-mail encounter fro m caregiver Tanvir Black MD Work Phone: [facility] Start: 07-20-2023 Patient encounter procedure Tanvir Black MD Work Phone: [facility] Comment on above: Had to reschedule ap pointment Start: 07-16-2023 End: 07-16-2023 Patient encounter procedure Teddy Hitchcock [facility] Start: 07-13-2023 Refill Marcello Ibanez MD Work Phone: [facility] Comment on above: Refill Start: 07-11-2023 Refill Tanvir Black MD Work Phone: [facility] Comment on above: Refill Start: 07-06-2023 End: 07-07-2023 Pre-admission assessment Teddy Hitchcock [facility] Start: 06-25-2023 End: 06-25-2023 Patient encounter procedure Teddy Hitchcock [facility] Start: 06-19-2023 End: 06-19-2023 Emergency department patient visit Teddy Luna [facility] Start: 06-18-2023 End: 06-18-2023 Patient encounter procedure Teddy Hitchcock [facility] Start: 06-04-2023 End: 06-04-2023 Patient encounter procedure Teddy Hitchcock [facility] Start: 05-25-2023 End: 05-25-2023 Patient encounter procedure Teddy Hitchcock [facility] Start: 05-14-2023 End: 05-14-2023 Patient encounter procedure Teddy Hitchcock [facility] Start: 05-07-2023 End: 05-07-2023 Patient encounter procedure Teddy Hitchcock [facility] Start: 04-30-2023 End: 05-01-2023 Pre-admission assessment Teddy Hitchcock [facility] Start: 04-24-2023 End: 04-24-2023 ambulatory Jarrod Eddy Other [facility] Other Start: 04-24-2023 Office outpatient ne w 45 minutes Jarrod Eddy [facility] Vascular Surgery Start: 04-24-2023 Refill Tanvir Black MD Work Phone: [facility] Comment on above: Refill Start: 04-23-2023 End: 04-23-2023 Patient encounter procedure Teddy Hitchcock [facility] Start: 04-22-2023 ambulatory Tanvir Black MD Work Phone: [facility] Comment on above: lab results Start: 04-22-2023 E-mail encounter fro m caregiver Tanvir Black MD Work Phone: [facility] Start: 04-21-2023 End: 04-21-2023 Patient encounter status Tanvir Black MD Work Phone: [facility] Start: 04-21-2023 End: 04-21-2023 Subsequent hospital visit by [facility] Comment on above: Dx: Multiple myeloma , remission status unspecified (HCC) (Primary Dx) 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) Start: 04-16-2023 End: 04-16-2023 Patient encounter procedure Teddy Hitchcock [facility] Start: 04-13-2023 End: 04-13-2023 Patient encounter procedure Teddy Hitchcock [facility] Start: 03-22-2023 End: 03-22-2023 Emergency department patient visit Martin Reese [facility] Start: 03-22-2023 Letter encounter Tanvir Black MD Work Phone: [facility] Comment on above: Refill Start: 03-16-2023 End: 03-16-2023 Patient encounter procedure Teddy Hitchcock [facility] Start: 03-06-2023 Refill Theo wilder MD Work Phone: [facility] Comment on above: Refill Prior Authorization Start: 03-05-2023 End: 03-05-2023 Patient encounter procedure Teddy Hitchcock [facility] Start: 02-27-2023 Telephone encounter Nighat rai 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 Work Phone: [facility] Comment on above: Left Message To Call Back Start: 02-18-2023 End: 02-18-2023 Emergency department patient visit Brent Sanches [facility] Start: 02-09-2023 Refill Dejuan Lechuga MD Work Phone: [facility] Comment on above: Refill Start: 01-20-2023 End: 01-20-2023 Subsequent hospital visit by physician Ip/Op Angio 1 [facility] Comment on above: Coagulation defect ( HCC) (Primary Dx); Alcoholic fatty liver; Hyperbilirubinemia; Alcoholic hepatitis, unspecified whether ascites present Start: 01-12-2023 End: 01-12-2023 Subsequent hospital visit by physician Meka Lucas RN [facility] Comment on above: 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) Start: 01-12-2023 End: 01-12-2023 Office outpatient visit 25 minutes Marcello Ibanez MD Work Phone: [facility] Comment on above: Liver fibrosis (Prim tanner Dx); Alcohol use disorder in remission; Elevated liver enzymes; Jaundice; Body mass index (BMI) 27.0-27.9, adult Start: 12-20-2022 Letter encounter Theo bright MD Work Phone: [facility] Start: 12-16-2022 End: 12-16-2022 Office outpatient visit 15 minutes Dejuan Lechuga MD Work Phone: [facility] Comment on above: Rib pain (Primary Dx ); Alcoholic cirrhosis of liver without ascites (HCC); Body mass index (BMI) 28.0-28.9, adult Start: 12-15-2022 End: 12-15-2022 Phys/qhp telephone evaluation 11-20 min Theo Burks MD Work Phone: [facility] Comment on above: Rib pain (Primary Dx ) Start: 12-15-2022 Letter encounter Theo bright MD Work Phone: [facility] Start: 12-15-2022 Telephone encounter Theo Burks MD Work Phone: [facility] Start: 12-03-2022 Refill Marcello Ibanez MD Work Phone: [facility] Comment on above: Refill Start: 11-13-2022 End: 11-13-2022 Subsequent hospital visit by physician Tanvir Black MD Work Phone: [facility] Comment on above: 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9, adult Start: 10-01-2022 Refill Abbey Love Work Phone: [facility] Comment on above: Refill I have a few questio ns Start: 09-21-2022 Letter encounter Theo bright MD Work Phone: [facility] Start: 09-20-2022 Telephone encounter Tanika lange RN Work Phone: [facility] Comment on above: Cancel Appointment Start: 09-16-2022 Orders Only Saskia Gricelda 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 Work Phone: [facility] [place] [facility] Start: 09-15-2022 Orders Only Samantha Stauffer 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 Work Phone: [facility] Start: 08-29-2022 End: 08-29-2022 Phys/qhp telephone evaluation 5-10 min Theo Burks MD Work Phone: [facility] Comment on above: Cellulitis, unspecif ied cellulitis site (Primary Dx); Muscle soreness Start: 08-25-2022 End: 08-25-2022 Orders Only Abbey Alvarez MD Work Phone: [facility] Comment on above: Arrived Start: 08-25-2022 End: 08-26-2022 Office outpatient visit 25 minutes Abbey Alvarez MD Work Phone: [facility] Comment on above: Alcoholic hepatitis without [...] adult Start: 08-22-2022 ambulatory Jim Hill RN [facility] Comment on above: internal med request Start: 08-22-2022 E-mail encounter giana m caregiver Jim Hill RN [facility] Start: 08-21-2022 Letter encounter Lorena Sparrow Ultrasound Start: 08-16-2022 Orders Only Tanvir Black MD Work Phone: [facility] Start: 08-15-2022 ambulatory Tanvir Black MD Work Phone: [facility] Comment on above: Severe pain Start: 08-15-2022 E-mail encounter giana maguire caregiver Tanvir Black MD Work Phone: [facility] Start: 08-15-2022 End: 08-15-2022 Emergency department patient visit Ann-Marie Bonner MD Work Phone: [facility] Comment on above: Leg/thigh symptoms ( Pt states has infection in R leg x 4 days, seen yesterday for same) Start: 08-15-2022 End: 08-15-2022 Office outpatient new 30 minutes Nenita Franco MD Work Phone: [facility] Comment on above: Cellulitis, unspecif ied cellulitis site (Primary Dx); Body mass index (BMI) 26.0-26.9, adult Start: 08-14-2022 Letter encounter [facility] Start: 08-14-2022 End: 08-14-2022 Office consultation new/estab patient 60 min Saskia SILVESTRE Work Phone: [facility] Comment on above: Alcoholic cirrhosis, unspecified whether ascites present (HCC) (Primary Dx); Iron deficiency anemia, unspecified iron deficiency anemia type; Alcoholic cirrhosis of liver without ascites (HCC); Body mass index (BMI) 27.0-27.9, adult Start: 08-14-2022 End: 08-14-2022 Subsequent hospital visit by physician Jasmyne Grimaldo RN [facility] Comment on above: Dx: Thrombocytopenia (HCC) (Primary Dx) Start: 08-14-2022 End: 08-14-2022 Office outpatient visit 40 minutes Tanvir Black MD Work Phone: [facility] Comment on above: 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) Start: 08-08-2022 ambulatory Tanvir Black MD Work Phone: [facility] Comment on above: Question Start: 08-08-2022 E-mail encounter giana m caregiver Tanvir Black MD Work Phone: [facility] Start: 05-06-2022 End: 05-06-2022 Office outpatient visit 40 minutes Tanvir Black MD Work Phone: [facility] Comment on above: 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) Start: 05-06-2022 End: 05-06-2022 Subsequent hospital visit by physician Leslie Canela RN Work Phone: [facility] Comment on above: 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) Start: 05-05-2022 Letter encounter [facility] Start: 03-13-2022 Letter encounter [facility] Start: 03-13-2022 End: 03-13-2022 Subsequent hospital visit by physician Rosita Le RN Work Phone: [facility] Comment on above: 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) Start: 03-13-2022 End: 03-13-2022 Office outpatient visit 40 minutes Tanvir Black MD Work Phone: [facility] Comment on above: 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 Comment on above: Prior Authorization Start: 01-08-2022 End: 01-17-2022 Evaluation and management of inpatient Francisco Marino MD Work Phone: Inpatient 10B Start: 01-07-2022 End: 01-08-2022 Evaluation and management of inpatient Aldair Thorpe [facility] Procedures Date Procedure Procedure Detail Performing Clinician [...] Phone: Start: 11-13-2022 Alpha-fetoprotein serum Saskia Madison 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 Work Phone: Start: 11-13-2022 Antihuman globulin direct [...] 08-14-2022 End: 08-14-2022 Lactate dehydrogenase ldh Tanvir Balck MD Work Phone: Start: 05-06-2022 Hepatic function [...] 01-08-2022 Iadna hepatitis c quant & reverse legal officer Ivy Chua MD Work Phone: Start: 01-08-2022 [...] 05-08-2025 Influenza vaccination Influenza Vaccine (Season Ended) [facility] Start: 04-26-2025 Adult BMI Screening Adult BMI Screening [facility] Start: 04-26-2025 Tobacco Screening Tobacco Screening [facility] Start: 04-21-2025 Tobacco Screening Tobacco Screening [facility] Start: 04-14-2025 Adult BMI Screening Adult BMI Screening [facility] Start: 04-14-2025 Tobacco Screening Tobacco Screening [facility] Start: 01-24-2025 End: 01-24-2025 Patient encounter procedure 01/24/2025 9:00 AM EDT Off ice Visit [facility] [address] [address] [place] [phone] Kenn Hickey, PhD [address] [place] [address] Arrived [facility] Comment on above: Arrived Start: 05-12-2024 End: 05-12-2024 Patient encounter procedure 05/12/2024 9:30 AM EDT Off ice Visit [facility] [address] [place] [phone] Radha Bertrand MD [address] [place] [address] [facility] Start: 05-08-2024 COVID-19 Vaccine ( season) COVID-19 Vaccine () [facility] Start: 05-08-2024 Influenza vaccination [facility] Start: 04-26-2024 End: 04-26-2024 Admission to same day surgery center 04/26/2024 10:45 AM EDT - 04/26/2024 1:00 PM EDT Surgery [facility] [address] [place] [address] Radha Bertrand MD [address] [place] [address] ANGIOGRAM EXTREMITY LOWER WITH INTERVENTION [facility] Comment on above: ANGIOGRAM EXTREMITY LOWER WITH INTERVENT ION Start: 04-26-2024 End: 04-26-2024 ANGIOGRAM EXTREMITY LOWER ANGIOGRAM EXTREMITY LOWER ARTERIOVENOUS MALFORMATION LEG RIGHT 04/26/2024 10:45 AM EDT [facility] Start: 04-26-2024 Subsequent hospital visit by physician 04/26/2024 10:45 AM EDT Hospital Encounter [facility] [address] [place] [id number] Radha Bertrand MD [address] [place] [address] [facility] Start: 01-22-2024 End: 01-22-2024 Patient encounter procedure 01/22/2024 9:30 AM EDT Off ice Visit General Surgery [address] [address] Bang Fuentes MD [address] [place] [address] [facility] Comment on above: [facility] Start: 10-01-2023 End: 10-01-2023 Patient encounter procedure 10/01/2023 8:30 AM EST Appointment [facility] [address] [place] [address] Tanvir Black MD [address] [place] [address] [facility] Start: 09-07-2023 Behavioral Health Screening Behavioral Health Screening [facility] Start: 07-27-2023 End: 07-27-2023 Patient encounter procedure 07/27/2023 10:00 AM EST Office Visit [facility] [address] [place] [address] Marcello Ibanez MD [address] [place] [address] [facility] Start: 07-20-2023 End: 07-20-2023 Patient encounter procedure [facility] Start: 06-07-2023 Influenza vaccination Influenza Vaccine (#1) [facility] Start: 05-16-2023 Fluid sample AFP level [facility] Start: 05-08-2023 COVID-19 Vaccine ( season) COVID-19 Vaccine ( season) [facility] Start: 05-08-2023 Influenza vaccination Influenza Vaccine (#1) [facility] Start: 04-21-2023 End: 04-21-2023 Patient encounter procedure [facility] Start: 03-20-2023 End: 03-20-2023 Patient encounter procedure [facility] Start: 03-03-2023 End: 03-03-2023 Telemedicine consultation with patient 03/03/2023 11:20 AM EDT Telemedicine [facility] [address] [place] [address] Nighat Mahmood, 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 [address] [place] [address] [facility] Start: 01-20-2023 End: 01-20-2023 Patient encounter procedure 01/20/2023 Appointment Radiology [facility] Start: 01-12-2023 End: 01-12-2023 Patient encounter procedure [facility] Start: 12-16-2022 End: 12-16-2022 Patient encounter procedure 12/16/2022 Office Visit Family Practice Dejuan Lechuga MD [address] [place] [address] [facility] Start: 12-15-2022 End: 12-15-2022 Telemedicine consultation with patient 12/15/2022 Telemedicine Family Practice Theo Burks MD [address] [place] [address] [place] [address] Arrived [facility] Comment on above: Arrived Start: 12-15-2022 End: 12-16-2023 XR Ribs - left Views and Chest PA XR RIBS LT UNILAT W/PA CHEST Imaging Routine Rib pain Expected: 12/15/2022, Expires: 12/16/[address] [facility] Work Phone: Comment on above: Expected: 12/15/2022, Expires: 4 Start: 11-13-2022 End: 11-13-2022 Patient encounter procedure [facility] Start: 10-27-2022 End: 10-27-2023 RF Guidance for transjugular biopsy of Liver-- W contrast IV [facility] Comment on above: Expected: 10/27/2022, Expires: 4 Start: 10-27-2022 End: 10-27-2022 Patient encounter procedure 10/27/2022 Office Visit Gastroenterology Abbey Alvarez MD [address] [place] [address] [place] [address] [facility] Start: 09-22-2022 End: 09-22-2022 Admission to [...] Hospital Encounter Gastroenterology Claire Avila MD [address] [place] [address] [facility] Start: 09-19-2022 End: 09-19-2022 Patient encounter procedure 09/19/2022 Office Visit Gastroenterology Saskia Madison, LIBAN-[employer] CAPTAIN [address] [place] [address] [facility] Start: 09-16-2022 End: 10-17-2022 SARS-CoV-2 (COVID-19) RNA [Presence] in Unspecified specimen by ANGIE with probe detection NOVEL CORONAVIRUS (COVID-19) Lab Routine Encounter for laboratory testing for severe acute respiratory syndrome coronavirus 2 (SARS-CoV-2) Expected: 09/16/2022, Expires: 10/17/[address] [facility] Work Phone: Comment on above: Expected: 09/16/2022, Expires: Start: 09-15-2022 End: 10-16-2022 SARS-CoV-2 (COVID-19) RNA [Presence] in Unspecified specimen by ANGIE with probe detection NOVEL CORONAVIRUS (COVID-19) Lab Routine Encounter for laboratory testing for severe acute respiratory syndrome coronavirus 2 (SARS-CoV-2) Expected: 09/15/2022, Expires: 10/16/2022 [facility] Work Phone: Comment on above: Expected: 09/15/2022, Expires: 3 Start: 09-11-2022 Hepatitis B vaccination Hepatitis B (HBV) Vaccine (2 of 3 - 19+ 3-dose series) [facility] Start: 09-11-2022 Hepatitis B Vaccine (2 of 3 - 19+ 3-dose series) Hepatitis B Vaccine (2 of 3 - 19+ 3-dose series) [facility] Start: 09-08-2022 End: 10-26-2022 Basic metabolic 2000 panel - Serum or Plasma BASIC METABOLIC PANEL Lab Routine Alcoholic hepatitis without ascites Alcoholic cirrhosis of liver without ascites (HCC) 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) Expected: 09/08/2022, Expires: 10/26/2022 [facility] Comment on above: Expected: 09/08/2022, Expires: 3 Start: 08-29-2022 End: 08-29-2022 Patient encounter procedure 08/29/2022 Office Visit Family Practice Theo Burks MD [address] [facility] [place] [address] [facility] Start: 08-28-2022 End: 08-28-2022 Telemedicine consultation with patient 08/28/2022 Telemedicine Gastroenterology Saskia Madison, LIBAN-DAYAMI [address] [place] [place] [address] [facility] [place] [facility] Start: 08-27-2022 End: 09-12-2022 Assay of ferritin FERRITIN Lab Routine Alcoholic hepatitis without ascites Alcoholic cirrhosis of liver without ascites (HCC) 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) Expected: 08/27/2022, Expires: 09/12/2022 [facility] Comment on above: Expected: 08/27/2022, Expires: 3 Start: 08-27-2022 End: 09-12-2022 Assay of gammaglobulin iga igd igg igm each IMMUNOGLOBULIN G Lab Routine Alcoholic hepatitis without ascites Alcoholic cirrhosis of liver without ascites (HCC) 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) Expected: 08/27/2022, Expires: 09/12/2022 [facility] Comment on above: Expected: 08/27/2022, Expires: 3 Start: 08-27-2022 End: 09-12-2022 Assay of iron IRON AND TIBC Lab Routine Alcoholic hepatitis without ascites Alcoholic cirrhosis of liver without ascites (HCC) 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) Expected: 08/27/2022, Expires: 09/12/2022 [facility] Comment on above: Expected: 08/27/2022, Expires: 3 Start: 08-27-2022 End: 09-12-2022 Hfe hemochromatosis gene anal common variants HEMOCHROMATOSIS DNA TEST Lab Routine Alcoholic hepatitis without ascites Alcoholic cirrhosis of liver without ascites (HCC) 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) Expected: 08/27/2022, Expires: 09/12/2022 [facility] Comment on above: Expected: 08/27/2022, Expires: 3 Start: 08-27-2022 End: 09-12-2022 Smooth muscle antibody measurement SMOOTH MUSC ATB SCRN & TITR Lab Routine Alcoholic hepatitis without ascites Alcoholic cirrhosis of liver without ascites (HCC) 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) Expected: 08/27/2022, Expires: 09/12/2022 [facility] Comment on above: Expected: 08/27/2022, Expires: 3 Start: 08-27-2022 End: 09-12-2022 Unlisted chemistry procedure MISCELLANEOUS SEND OUT TE ST Lab Routine Alcoholic hepatitis without ascites Alcoholic cirrhosis of liver without ascites (HCC) 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) Expected: 08/27/2022, Expires: 09/12/2022 [facility] [employer] [facility] Work Phone: Comment on above: Expected: 08/27/2022, Expires: 3 Start: 08-25-2022 End: 09-12-2022 Prothrombin time PROTHROMBIN TIME AND INR Lab Lab Add-On Alcoholic cirrhosis of liver without ascites (HCC) Expected: 08/25/2022, Expires: 09/12/2022 [facility] [employer] [facility] Work Phone: Comment on above: Expected: 08/25/2022, Expires: 3 Start: 08-25-2022 End: 08-25-2022 Patient encounter procedure [facility] Comment on above: Arrived Start: 08-19-2022 End: 08-19-2022 Professional / ancillary services management 08/19/2022 Ancillary Procedure [facility] [place] [facility] Start: 08-19-2022 End: 08-19-2022 Professional / ancillary services management 08/19/2022 Ancillary Procedure [facility] [place] [facility] Start: 08-14-2022 End: 08-14-2023 US Abdomen RUQ US LIVER/GALL BLADDER/PANCREAS Imaging Routine Iron deficiency anemia, unspecified iron deficiency anemia type Alcoholic cirrhosis, unspecified whether ascites present (HCC) Expected: 08/14/2022, Expires: 08/14/2023 [facility] [employer] [facility] Work Phone: Comment on above: Expected: 08/14/2022, Expires: 3 Start: 08-14-2022 End: 08-14-2023 US.doppler Portal vein and Hepatic vein US HEP PORT SPLEN VEIN + DOPPLER Imaging Routine Iron deficiency anemia, unspecified iron deficiency anemia type Alcoholic cirrhosis, unspecified whether ascites present (HCC) Expected: 08/14/2022, Expires: 08/14/2023 [facility] Comment on above: Expected: 08/14/2022, Expires: 3 Start: 08-14-2022 End: 08-14-2022 [facility] encounter [facility] Start: 07-11-2022 Hepatocellular Carcinoma Screening Hepatocellular Carcinoma Screening [facility] Start: 07-11-2022 Liver Imaging (Hepatocellular Carcinoma Screening) Liver Imaging (Hepatocellular Carcinoma Screening) [facility] Start: 07-11-2022 [facility] Start: 06-07-2022 Influenza vaccination Influenza Vaccine (#1) [facility] Start: 05-06-2022 Subsequent hospital visit by physician 05/06/2022 Hospital Encounter Oncology Medical Tanvir Black MD [address] [place] [address] Subj: Appointment Reminder [facility] Comment on above: Subj: Appointment Reminder Start: 05-06-2022 End: 05-06-2022 Patient encounter procedure [facility] Non Invasive Cardiology Start: 04-07-2022 Influenza vaccination Influenza Vaccine (#1) [facility] Start: 03-13-2022 End: 03-13-2022 Patient encounter procedure 03/13/2022 Appointment Oncology Medical [facility] Start: 03-13-2022 End: 03-13-2022 Patient encounter procedure 03/13/2022 Appointment Oncology Medical Tanvir Black MD [address] [place] [address] [facility] Start: 02-11-2022 End: 02-11-2022 ambulatory [facility] Start: 02-11-2022 End: 02-11-2022 Patient encounter procedure 02/11/2022 Appointment Oncology Medical Tanvir Black MD [address] [address] [facility] Start: 01-23-2022 End: 01-23-2022 ambulatory [facility] Start: 01-23-2022 End: 01-23-2022 Patient encounter procedure 01/23/2022 Office Visit Orthopedics Ronen Welch MD [address] [place] [address] [facility] Start: 01-20-2022 End: 01-20-2022 ambulatory [facility] Start: 02-05-2021 COVID-19 Vaccine (2 - [...] DTaP,Tdap and Td Vaccines (1 - Tdap) [facility] Start: 2003 Shingles (RZV) Vaccine (1 of 2) Shingles (RZV) Vaccine (1 of 2) [facility] Start: 2003 Shingrix Vaccine (1 of 2) Shingrix Vaccine (1 of 2) [facility] Start: 2003 Urine microalbumin profile DTaP,Tdap,Td Vaccine (1 - Tdap) [facility] Start: 2002 Adult BMI Screening Adult BMI Screening [facility] Start: 2002 HIV screening HIV Screening [facility] Start: 2002 Tetanus + diphtheria + acellular pertussis vaccine (product) [facility] Start: 1996 Depression Screening Depression Screening [facility] Start: 1996 Tobacco Screening Tobacco Screening [facility] Start: 1990 Pneumococcal vaccination [facility] Start: 1990 [facility] Start: 1989 COVID-19 Vaccine (#1) COVID-19 Vaccine (#1) [facility] Start: 1989 COVID-19 Vaccine (1) COVID-19 Vaccine (1) [facility] Start: 1989 [facility] Start: 03-18-1985 COVID-19 Vaccine (#1) COVID-19 Vaccine (#1) [facility] Start: 1984 Tobacco Counseling Tobacco Counseling [facility] End: 08-14-2023 Alpha-fetoprotein serum ALPHA FETOPROTEIN TUMOR MARKER Lab Routine Iron deficiency anemia, unspecified iron deficiency anemia type Alcoholic cirrhosis, unspecified whether ascites present (HCC) 1 Occurrences starting 08/14/2022 until 08/14/2023 [facility] Comment on above: 1 Occurrences starting 08/14/2022 [...] EST [facility] Assay of haptoglobin quantitative [facility] [employer] [facility] Work Phone: End: 03-13-2023 Assay of [...] Routine Dysuria 08/14/2022 12:17 PM EST [facility] [facility] Work Phone: Basic metabolic 2000 panel [...] Occurrences starting 11/12/2022 until 11/13/2023, 1 completed [facility] Comment on above: 6 Occurrences starting 11/12/2022 until 11/13/2023, 1 completed CBC panel - Blood by Automated count [facility] End: 08-14-2023 CBC panel - Blood [...] starting 03/13/2022 until 03/13/2023, 1 completed [facility] [employer] Work Phone: Comment on above: monthly for 12 Occurrences starting 03/2022 until 03/13/2023, 1 completed End: 11-13-2023 CBC W Auto Differential panel - Blood COMPLETE BLOOD COUNT W/DIFF Lab STAT 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) 6 Occurrences starting 11/12/2022 until 11/13/2023, 1 completed [facility] Work Phone: Comment on above: 6 Occurrences starting 11/12/2022 until 11/13/2023, 1 completed Creatine kinase total CREATINE K INASE Lab Routine Muscle soreness Ordered: 08/29/2022 [facility] [employer] Work Phone: Comment on above: Ordered: 08/29/2022 ESOPHAGOGASTRODUODEN OSCOPY, GENERAL ANESTHESIA [facility] Hepatic function panel [facility] [employer] [facility] Work Phone: End: 03-13-2023 Hepatic function [...] 11:58 AM EST [facility] Lactate dehydrogenase ldh [facility] End: 03-13-2023 Lactate dehydrogenase ldh LDH [...] Occurrences starting 11/12/2022 until 11/13/2023, 1 completed [facility] Comment on above: 6 Occurrences starting 11/12/2022 until 11/13/2023, 1 completed Prothrombin time [facility] End: 08-14-2023 Prothrombin time PROTHROMBIN TIME AND INR Lab Routine Iron deficiency anemia, unspecified iron deficiency anemia type Alcoholic cirrhosis, unspecified whether ascites present (HCC) 1 Occurrences starting 08/14/2022 until 08/14/2023 [facility] Comment on above: 1 Occurrences starting 08/14/2022 until 08/14/2023 Prothrombin time PROTHROMBIN IVAN E AND INR Lab Routine Nausea Ordered: 10/27/2022 [employer] Work Phone: Comment on above: Ordered: 10/27/2022 Smooth muscle antibo dy measurement SMOOTH MUSC ATB SCRN & TITR Lab Routine Alcoholic hepatitis without ascites Alcoholic cirrhosis of liver without ascites (HCC) 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) 08/25/2022 12:41 PM EST [facility] Unlisted chemistry procedure MIS CELLANEOUS SEND OUT TEST Lab Routine Alcoholic hepatitis without ascites Alcoholic cirrhosis of liver without ascites (HCC) 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) 08/25/2022 12:41 PM EST [facility] Immunizations Immunization Date Immunization Notes Care Provider Vandana watters 10-27-2022 hepatitis B vaccine, unspecified formulation Marcello Ibanez MD Work Phone: [facility] 08-14-2022 hepatitis B vaccine, adult dosage Saskia Madison 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 Work Phone: [facility] 01-08-2021 Moderna Monovalent (12+ yrs) COVID-19 vaccine, mRNA, spike protein, LNP, PF, 100 mcg/0.5 mL (JGQ=345) Marcello Ibanez MD Work Phone: [facility] 12-11-2020 Moderna Monovalent (12+ yrs) COVID-19 vaccine, mRNA, spike protein, LNP, PF, 100 mcg/0.5 mL (TZZ=695) Marcello Ibanez MD Work Phone: [facility] NEGATED: Highlighted row has not occurred!06-09-2024 influenza virus vaccine, unspecified formulation Mario Evans [facility] NEGATED: Highlighted row has not occurred!08-26-2023 influenza virus vaccine, unspecified formulation Loreta Cummings [facility] Payers Date Payer Category Payer Self-pay [id number] 2023 Private Health Insurance [employer] [id number] 2012 Unknown [id number]. 1.13.56.2.7 .[id number] 2012 Unknown [id number] 2.840.1.013298.19 1984 Unknown [id number] .1.518761.3.579.2. 727 1984 Unknown [id number] 2.16840.1.378614.3.579.2. 727 1984 Unknown [id number] 2.16840.1.345145.3.579.2. 727 1984 Unknown [id number] 2.16840.1.464395.3.579.2. 1286 1984 Unknown [id number] 2.16840.1.532598.3.579.2. 1286 1984 Unknown [id number] 2.16.840.1.821812.3.579.2. 6 1984 Unknown [id number] 2.16.840.1.503657.3.579.2. 1285 1984 Unknown [id number] 2.16.840.1.736680.3.579.2. 1285 1984 Unknown [id number] 2.16.840.1.052458.3.579.2. 1984 Unknown [id number] 2.16.840.1.629520.3.579.2. 1984 Unknown [id number] 2.16.840.1.247252.3.579.2. 1984 Unknown [id number] 2.16.840.1.386991.3.579.2 1984 Unknown [id number] 2.16.840.1.522618.3.579.2 1984 Unknown [id number] 2.16.840.1.062254.3.579.2 1984 Unknown [id number] 2.16.840.1.268779.3.579.2 1984 Unknown [id number] 2.16.840.1.510853.3.579.2. 1984 Unknown [id number] 2.16.840.1.071387.3.579.2. 1984 Unknown [id number] 2.16.840.1.992088.3.579.2 1984 Unknown [id number] 2.16.840.1.955066.3.579.2. 1984 Unknown [id number] 2.16.840.1.411990.3.579.2. 1984 Unknown [id number] 2.16.840.1.693242.3.579.2 1984 Unknown [id number] 2.16.840.1.448520.3.579.2 1984 Unknown [id number] 2.16.840.1.397795.3.579.2 1984 Unknown [id number] 2.16.840.1.464343.3.579.2 1984 Unknown [id number] 2.16.840.1.133715.3.579.2 1984 Unknown [id number] 2.16.840.1.654105.3.579.2 1984 Unknown [id number] 2.16.840.1.243565.3.579. 1984 Unknown [id number] 2.16.840.1.966565.3.579.2 1984 Unknown [id number] 2.16.840.1.716663.3.579. 1984 Unknown [id number] 2.16.840.1.252609.3.579.2 1984 Unknown [id number] 2.16.840.1.498494.3.579.2 1984 Unknown [id number] 2.16.840.1.559467.3.579.2 1984 Unknown [id number] 2.16.840.1.380456.3.579.2 1984 Unknown [id number] 2.16.840.1.869301.3.579.2 1984 Unknown [id number] 2.16.840.1.051294.3.579.2 1984 Unknown [id number] 2.16.840.1.862307.3.579.2 1984 Unknown [id number] 2.16.840.1.485410.3.579.2. 727 1984 Unknown [id number] 2.16.840.1.623759.3.579.2. 727 1984 Unknown [id number] 2.16.840.1.314227.3.579.2. 727 1984 Unknown [id number] 2.16.840.1.679846.3.579.2. 727 1984 Unknown [id number] 2.16.840.1.105127.3.579.2. 727 1984 Unknown [id number] 2.16.840.1.570827.3.579.2. 727 1984 Unknown [id number] 2.16.840.1.948017.3.579.2. 727 1984 Unknown [id number] 2.16.840.1.150262.3.579.2. 727 1984 Unknown [id number] 2.16.840.1.694018.3.579.2. 1259 Social History Date Type Detail Facility Tobacco Tobacco smoking consumption unknown [facility] Comment on above: daily chew pt alvinies Start: 12-30-2023 End: 05-12-2024 Sex Assigned At Male [facility] Start: 1984 [facility] Tobacco smoking consumption unknown [facility] Start: 08-14-2022 End: 12-21-2024 Tobacco smoking status UTIS [facility]-smoker [facility] Comment on above: quit cigarettes 9 ye arsago cherry, quit 9 years ago Start: 09-07-2002 End: 09-17-2008 History of tobacco use Current smoker [facility] Start: 09-07-2002 End: 09-17-2008 History of tobacco use Cigarette Smoker [facility] Start: 08-14-2022 End: 04-21-2024 Tobacco use and exposure [facility] smokeless tobacco [facility] History of tobacco use Chews Tobacco [facility] Start: 08-05-2022 End: 12-16-2022 Exposure to SARS-CoV-2 (event) Not sure [facility] Start: 08-19-2022 End: 08-29-2022 Exposure to SARS-CoV-2 (event) Unable to assess [facility] Work Phone: Tobacco smoking status [facility] Tobacco smoking status Smokeless tobacco user within last 30 days [facility] Comment on above: quit cigarettes 9 ye ken carey, quit 9 years ago Start: 12-30-2023 Alcohol intake Current drinke r of alcohol (finding) [facility] Start: 12-30-2023 End: 05-12-2024 Alcohol intake [facility] Start: 12-30-2023 Tobacco Comment Once every cou ple of weeks [facility] Within the last year , have you [...] smoking stat us NHIS Never smoked tobacco [facility] Start: 04-14-2024 Tobacco use and exposure Former smokeless tobacco user [facility] Start: 04-14-2024 Alcoholic beverage intake Defer [facility] History of tobacco use Snuff User [facility] Start: 04-21-2024 End: 05-12-2024 Alcoholic beverage intake Ex-drinker (finding) [facility] Start: 04-21-2024 Tobacco Comment 2 tins per week [facility] Start: 04-21-2024 Alcohol Comment quit 2020 [facility] Start: 12-19-2009 Sex Male (finding) [facility] Medical Equipment Procedure Code Equipment Code Equipment [...] and able to swallow. [Order 4 End] [id number] Start: 01-17-2022 Functional Status Date Assessment Result Facility 01-12-2025 Functional Status N/A [facility] 01-03-2025 Functional Status N/A [facility] 12-20-2024 Functional Status N/A [facility] 11-21-2024 Functional Status N/A [facility] 11-18-2024 Functional Status N/A [facility] 10-26-2024 Functional Status N/A [facility] 10-05-2024 Functional Status N/A [facility] 08-19-2024 Functional Status N/A [facility] 06-09-2024 Functional Status N/A [facility] 05-12-2024 Functional Status N/A [facility] 04-29-2024 Functional Status N/A [facility] 03-17-2024 Functional Status No [facility] 01-27-2024 Functional Status N/A [facility] 12-23-2023 Functional Status N/A [facility] 12-11-2023 Functional Status No [facility] 12-11-2023 Functional Status [facility] 11-11-2023 Functional Status N/A [facility] 10-28-2023 Functional Status N/A [facility] 09-21-2023 Functional Status N/A [facility] 09-01-2023 Functional Status N/A [facility] 08-26-2023 Functional Status N/A [facility] 07-24-2023 Functional Status N/A [facility] 06-19-2023 Functional Status N/A [facility] 03-22-2023 Functional Status N/A [facility] 02-18-2023 Functional Status N/A [facility] 02-17-2022 Functional Status N/A [facility] Clinical Notes 12-07-2019 to 01-24-2025 [...] HPI MEDICATIONS: No current outpatient medications EDUCATION/VOCATION/SOCIAL: [place] language Fijian. Completed high school education without any academic [...] Please contact me with any questions at [phone]. documented in this encounter [facility] 01-12-2025 Evaluation + Plan note Extrac shawn [...] AM Scheduled Provider:Vic Carrion Location:[facility] Appointment Type: Open Appointment Date:09/28/2025 02:40:00 PM Scheduled Provider:Kavon Lu DO [facility] Type:[facility] Office Visit 20 (FT) [...] B12 Level 09/25/25 Radiology* US Liver 05/08/25 [facility] 05-08-2025 NoteConsultation Note Patient is presenting with [...] call with any questions or concerns that arise[facility]Result Comment: Electronically Signed By: Evelio Carr DO\\.br\\Date and Time Signed: 01/12/25 09:45 [id number] Evaluation + Plan noteExtracted from: Title:Right ultrasound-guide [...] Date:01/12/2025 08:15:00 AM Scheduled Provider:Evelio Carr DO Location:[facility] Appointment Type:Pain Management - Follow Up (FT) Appointment Date:04/07/2025 08:40:00 AM Scheduled Provider:Vic Carrion Location:[facility] Appointment Type:FM Open Appointment Date:09/28/2025 02:40:00 PM Scheduled Provider:Kavon Lu DO [facility] Type:ONC Office Visit 20 (FT) [...] B12 Level 09/25/25 Radiology* US Liver 05/08/25 [facility] 04-29-2025 NoteOperative Report Diagnosis: G57.80, disorders saphenous [...] Right diagnostic saphenous nerve block under ultrasound guidance.[facility]:Result Comment: Electronically Signed By: Evelio Carr DO.br\\Date and Time Signed: 01/03/25 11:55 [id number] NotePatient Education Cardiovascular Hypertension, Adult Hypertension is [...] Keep all follow-up visits. Medicines ??? Take [id number]-[id number] and prescription medicines only as told by [...] ??? Hypertension is a (more content not included)...[facility] 12-20-2024 Evaluation + Plan noteExtracted from: Title:Pain [...] AM Scheduled Provider:Vic Carrion Location:[facility] Appointment Type: Open Appointment Date:04/07/2025 08:40:00 AM Scheduled Provider:Vic Carrion Location:[facility] Appointment Type: Open Appointment Date:09/28/2025 02:40:00 [...] B12 Level 09/25/25 Radiology* US Liver 05/08/25 [facility] 04-15-2025 NoteConsultation Note Patient: WILL RALPH Age: [...] BID, # 180 tab(s), Refills(s) 3, Pharmacy: [facility], 170, cm, 10/05/24 9:01:00 EST, Height/Length Dosing, 78.5, kg, 10/05/24 9:11:00 EST, Weight Dosing Narcan 4 mg/0.1 mL nasal spray: 4 mg, Nasal, As Directed, for suspected overdose symptoms, # 1 kit(s), Refills(s) 0, Pharmacy: [facility], 170, cm, 10/05/24 9:01:00 EST, Height/LengthDosing, 78.5, kg, 10/05/24 9:11:00 EST, Weight Dosing Zofran ODT 4 mg Tab: 4 mg = 1 tab(s), Oral, TID, PRN Nausea, # 60 tab(s), Refills(s) 0, Pharmacy: [facility][id number], 170, cm, 05/12/24 15:39:00 EDT, Height/Length Dosing, 73, kg, 05/12/24 15:39:00 EDT, Weight Dosing oxyCODONE 5 mg Tab: 0.5 tab, Oral, q6hr, PRN for pain, for leg pain- severe pain only, # 28 tab(s),Refills(s) 0, Pharmacy: [facility], 170, cm, 10/05/24 9:01:00 EST, Height/Length Dosing, 78.5, kg, 10/05/24 9:11:00 EST, Weight Dosing spironolactone 50 mg Tab: 50 mg = 1 tab(s), Oral, Daily, X 90 day(s), # 90 tab(s), Refills(s) 3, Pharmacy: [facility], 170, cm, 11/21/24 9:32:00 EDT, Height/Length Dosing, 77.5, kg, 11/21/24 9:32:00 EDT, Weight Dosing Documented Medications Documented Misc DME Prescription: See Instructions, [place] SAP Dressing 4 x 4 dressing Misc DME Prescription: See Instructions, LiquidIV hydration Misc DME Prescription: See Instructions, Muscle & joint balm CBD 880mg furosemide 20 mg Tab: = 1 tab(s), Oral, Daily, PRN Edema, Refills(s) 0 magnesium citrate: Oral, Refill(s) 0, Constipation Problem list: All Problems Thrombocytopenia / SNOMED CT 577131474 / Confirmed Elevated INR / SNOMED CT 0867675884 / Confirmed Smokeless tobacco use / SNOMED CT 3497742193 / Confirmed Hypokalemia / SNOMED CT 05422810 / Confirmed Elevated fasting glucose / SNOMED CT 248184563 / Confirmed Anemia / SNOMED CT 403598237 / Confirmed Alcohol use disorder in remission / SNOMED CT 67353126 / Confirmed Liver cirrhosis, alcoholic / SNOMED CT 4014838902 / Confirmed Venous ulcer of right leg / SNOMED CT 4261122931 / Confirmed Esophageal varices / SNOMED CT 23340775 / Confirmed Dependent edema / SNOMED CT 876087126 / Confirmed Varicose veins of legs / SNOMED CT 345230168 / Confirmed Portal venous hypertension / SNOMED CT 84296289 / Confirmed HTN (hypertension) / SNOMED CT 7741136539 / Confirmed Headache / SNOMED CT 34072537 / Confirmed Nausea / SNOMED CT 1816761585 / Confirmed Cirrhosis / SNOMED CT 34087874 / Confirmed Tobacco user / SNOMED CT 262540162 / Confirmed 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 Severe back pain / SNOMED CT 200027066 / Confirmed Diarrhea / SNOMED CT 319481143 / Confirmed Cholelithiases / SNOMED CT 561558500 / Confirmed Epigastric pain / SNOMED CT 097636361 / Confirmed Vitamin D deficiency / SNOMED CT 34614546 / Confirmed Abnormal stress test / SNOMED CT 2074458956 / Confirmed Iron deficiency anemia / SNOMED CT 168382959 / Confirmed Superficial thrombophlebitis of leg / SNOMED CT 80349642 / Confirmed Elevated liver enzymes / SNOMED CT 0853224648 / Confirmed Hemolytic anemia / SNOMED CT 837569787 / Confirmed Cellulitis of right leg / SNOMED CT 677731530147300 / Confirmed BMI 26.0-26.9,adult / SNOMED CT 2825295190 (more content not included)...[facility]:Result Comment: Electronically Signed By: Sadie Loco PA-C\\.chidi\\Date and Time Signed: 12/20/24 08:50 [id number] Evaluation + Plan noteExtracted from: Title:Pain Managment [...] AM Scheduled Provider:Vic Carrion Location:[facility] Appointment Type:FM Open Appointment Date:09/28/2025 02:40:00 [...] B12 Level 09/25/25 Radiology* US Liver 05/08/25 [facility] 03-17-2025 NoteConsultation Note Patient: WILL RALPH Age: [...] BID, # 180 tab(s), Refills(s) 3, Pharmacy: [facility], 170, cm, 10/05/24 9:01:00 EST, Height/Length Dosing, 78.5, kg, 10/05/24 9:11:00 EST, Weight Dosing Narcan 4 mg/0.1 mL nasal spray: 4 mg, Nasal, As Directed, for suspected overdose symptoms, # 1 kit(s), Refills(s) 0, Pharmacy: [facility], 170, cm, 10/05/24 9:01:00 EST, Height/LengthDosing, 78.5, kg, 10/05/24 9:11:00 EST, Weight Dosing Zofran ODT 4 mg Tab: 4 mg = 1 tab(s), Oral, TID, PRN Nausea, # 60 tab(s), Refills(s) 0, [facility]acy: [facility] #[id number], 170, cm, 05/12/24 15:39:00 EDT, Height/Length Dosing, 73, kg, 05/12/24 15:39:00 EDT, Weight Dosing gabapentin 600 mg Tab: 1,200 mg = 2 tab(s), Oral, TID, X 30 day(s), # 180 tab(s), Refills(s) 0, Pharmacy: [facility], 170, cm, 10/26/24 10:30:00 EST, Height/Length Dosing, 78.9, kg, 10/26/24 10:30:00 EST, Weight Dosing oxyCODONE 5 mg Tab: 0.5 tab, Oral, q6hr, PRN for pain, for leg pain- severe pain only, # 28 tab(s),Refills(s) 0, Pharmacy: [facility], 170, cm, 10/05/24 9:01:00 EST, Height/Length Dosing, 78.5, kg, 10/05/24 9:11:00 EST, Weight Dosing spironolactone 50 mg Tab: 50 mg = 1 tab(s), Oral, Daily, # 90 tab(s), Refills(s) 3, [facility]acy: [facility] #[id number], 170, cm, 12/23/23 11:10:00 EDT, Height/Length Dosing, 70.3, kg, 12/23/23 11:10:00 EDT, Weight Dosing Documented Medications Documented Misc DME Prescription: See Instructions, [place] SAP Dressing 4 x 4 dressing Misc DME Prescription: See Instructions, LiquidIV hydration Misc DME Prescription: See Instructions, Muscle & joint balm CBD 880mg furosemide 20 mg Tab: = 1 tab(s), Oral, Daily, PRN Edema, Refills(s) 0 magnesium citrate: Oral, Refill(s) 0, Constipation Problem list: All Problems Thrombocytopenia / SNOMED CT 217529336 / Confirmed Elevated INR / SNOMED CT 6541091235 / Confirmed Smokeless tobacco use / SNOMED CT 5527131297 / Confirmed Hypokalemia / SNOMED CT 81564657 / Confirmed Elevated fasting glucose / SNOMED CT 748833855 / Confirmed Anemia / SNOMED CT 604309264 / Confirmed Alcohol use disorder in remission / SNOMED CT 98474182 / Confirmed Liver cirrhosis, alcoholic / SNOMED CT 4533590275 / Confirmed Venous ulcer of right leg / SNOMED CT 8849912684 / Confirmed Esophageal varices / SNOMED CT 47844716 / Confirmed Dependent edema / SNOMED CT 952889022 / Confirmed Varicose veins of legs / SNOMED CT 846244735 / Confirmed Portal venous hypertension / SNOMED CT 53436510 / Confirmed HTN (hypertension) / SNOMED CT 4849610779 / Confirmed Headache / SNOMED CT 26175257 / Confirmed Nausea / SNOMED CT 5028690762 / Confirmed Cirrhosis / SNOMED CT 71233315 / Confirmed Tobacco user / SNOMED CT 864380094 / Confirmed Megaloblastic anemia / SNOMED CT 33222429 / Confirmed Severe back pain / SNOMED CT 642822500 / Confirmed Diarrhea / SNOMED CT 433761447 / Confirmed Cholelithiases / SNOMED CT 243447099 / Confirmed Epigastric pain / SNOMED CT 406103767 / Confirmed Vitamin D deficiency / SNOMED CT 56409194 / Confirmed Abnormal stress test / SNOMED CT 1245982635 / Confirmed Iron deficiency ane (more content not included)...[facility] Comment on above:Result Comment: Electronically Signed By: Sadie Loco PA-C\\.br\\Date and Time Signed: 11/21/24 08:59 [id number] NotePatient Education Orthopedics How to Use Cold [...] provider. Document Revised: 07/10/2021 Document Reviewed: 07/10/2021 [employer] Patient Education ? 2023 [employer] Acute Pain, Adult Acute pain is [...] these instructions at home: Medicines ??? Take mqhk-uaw-cmzvzwd and prescription medicines only as told by [...] Do not take othe (more content not included)...[facility] 11-18-2024 NoteProgress Note-Physician Patient: WILL RALPH Age: 39 years Sex: Male : 1985 Associated Diagnoses: None Author: Josiane Chin MD Postoperative Information Postoperative disposition: Postoperative disposition: To PACU. Optimetrix number: Optimetrix number [id number]. Anesthetic utilized: General. Health Status Allergies: Allergic [...] Discharge when meets criteria ( To home ).[facility]:Result Comment: Electronically Signed By: Josiane Chin MD\\.br\\Date and Time Signed: 11/18/24 14:46 EDT 11-18-2024 Evaluation + Plan noteExtracted from: Title:ANES Post-operative Note---General Author: Josiane Chin MD Date:11/18/24 Plan Transfer/Discharge: Transfer/Discharge Discharge when meets criteria ( To home ). Extracted from: Title:1Preop H&P Author:Mario Evans MD Date:11/18/24 Impression and Plan Impression: cirrhosis Plan: -EGD Extracted from: Title:ANES Pre-operative Note 2022 Author:Josiane Dominguez Date:11/18/24 Plan [place] [employer] Anesthesiologists (ASA) physical status classification: Class III. Anesthetic Preoperative Plan: Anesthesia General. Future Appointments Appointment Date:11/21/2024 08:30:00 AM Scheduled Provider:Sadie Loco PA-C Location:[facility] Appointment Type:Pain Management - Follow Up (FT) Appointment Date:11/21/2024 09:15:00 AM Scheduled Provider:Mario Evans MD [facility] Appointment Type:BADH Follow Up Appointment Date:04/07/2025 08:40:00 AM Scheduled Provider:Vic Carrino Location:[facility] Appointment Type:FM Open Appointment Date:09/28/2025 [...] B12 Level 09/25/25 Radiology* US Liver 05/08/25 [facility] 03-14-2025 Hospital Discharge instructions Patient Education 11/18/2024 [...] what activities are safe for you. Take ccby-ssg-uuhtwmk and prescription medicines only as told by [...] provider. Document Revised: 12/03/2022 Document Reviewed: 12/03/2022 [employer] Patient Education 2023 [employer]. [facility] 03-14-2025 NotePatient Education - Text Gastroenterology Upper [...] activities are safe for you. ??? Take mhwp-nwv-bjbrube and prescription medicines only as told by [...] provider. Document Revised: 12/03/2022 Document Reviewed: 12/03/2022 [employer] Patient Education ? 2023 [employer].[facility] 11-18-2024 NoteEndoscopic Procedure Report - Other Patient: [...] -Repeat EGD in 1 year of [facility]Result Comment: Electronically Signed By: Carrol MULTANI, Mario Xiong\\.chidi\\Date and Time Signed: 11/18/24 09:01 EDTOther Comment: Missing Attachment - attachment storage system not supported [id number] Can be viewed in source systemMissing Attachment - attachment storage system not supported [id number] Can be viewed insource systemMissing Attachment - attachment storage system not supported [id number] Can be viewed in source systemMissing Attachment - attachment storage system not supported [id number] Can be viewed in source systemMissing Attachment - attachment storage system not supported [id number] Can be viewed in source systemMissing Attachment - attachment storage system not supported [id number] Can be viewed in source systemMissing Attachment - attachment storage system not supported [id number] Can be viewed in source systemMissing Attachment - attachment storage system not supported [id number] Can be viewed in source -[phone] NoteProgress Note-Physician Patient: WILL RALPH Age: 39 [...] BID, # 180 tab(s), Refills(s) 3, Pharmacy: [facility], 170, cm, 10/05/24 9:01:00 EST, Height/Length Dosing, 78.5, kg, 10/05/24 9:11:00 EST, Weight Dosing Narcan 4 mg/0.1 mL nasal spray: 4 mg, Nasal, As Directed, for suspected overdose symptoms, # 1 kit(s), Refills(s) 0, Pharmacy: [facility], 170, cm, 10/05/24 9:01:00 EST, Height/LengthDosing, 78.5, kg, 10/05/24 9:11:00 EST, Weight Dosing Zofran ODT 4 mg Tab: 4 mg = 1 tab(s), Oral, TID, PRN Nausea, # 60 tab(s), Refills(s) 0, Pharmacy: [facility] #[id number], 170, cm, 05/12/24 15:39:00 EDT, Height/Length Dosing, 73, kg, 05/12/24 15:39:00 EDT, Weight Dosing gabapentin 300 mg Cap: See Instructions, take per office provided instructions until you are taking2 tablets three times per day, # 120 tab(s), Refills(s) 0, Pharmacy: [facility], 170, cm, 10/26/24 10:30:00 EST, Height/Length Dosing, 78.9, kg, 10/26/24 10:3... gabapentin 600 mg Tab: 1,200 mg = 2 tab(s), Oral, TID, X 30 day(s), # 180 tab(s), Refills(s) 0, Pharmacy: [facility], 170, cm, 10/26/24 10:30:00 EST, Height/Length Dosing, 78.9, kg, 10/26/24 10:30:00 EST, Weight Dosing oxyCODONE 5 mg Tab: 0.5 tab, Oral, q6hr, PRN for pain, for leg pain- severe pain only, # 28 tab(s),Refills(s) 0, Pharmacy: [facility], 170, cm, 10/05/24 9:01:00 EST, Height/Length Dosing, 78.5, kg, 10/05/24 9:11:00 EST, Weight Dosing spironolactone 50 mg Tab: 50 mg = 1 tab(s), Oral, Daily, # 90 tab(s), Refills(s) 3, Pharmacy: [facility] #[id number], 170, cm, 12/23/23 11:10:00 EDT, Height/Length Dosing, 70.3, kg, 12/23/23 11:10:00 EDT, Weight Dosing Documented Medications Documented Misc DME Prescription: See Instructions, [place] SAP Dressing 4 x 4 dressing Misc [...] Problems Abnormal stress test / SNOMED CT 4496713688 / Confirmed Alcohol use disorder in remission / SNOMED CT 70507898 / Confirmed Anemia / SNOMED CT 062644689 / Confirmed BMI 26.0-26.9,adult / SNOMED CT 0971404167 / Confirmed Cellulitis of right leg / SNOMED CT 342883616116582 / Confirmed Cholelithiases / SNOMED CT 229391468 / Confirmed Cirrhosis / SNOMED CT 90053538 / Confirmed Dependent edema / SNOMED CT 211484366 / Confirmed Diarrhea / SNOMED CT 440640608 / Confirmed Elevated fasting glucose / SNOMED CT 002795044 / Confirmed Elevated INR / SNOMED CT 8963829629 / Confirmed Elevated liver enzymes / SNOMED CT 5392433116 / Confirmed Epigastric pain / SNOMED CT 689043364 / Confirmed Esophageal varices / SNOMED CT 10827261 / Confi (more content not included)... [facility]Result Comment: Electronically Signed By: Giuseppe MULTANI, Josiane Mary\\.br\\Date and Time Signed: 11/18/24 08:52 EDT 11-18-2024 [...] BID, # 180 tab(s), Refills(s) 3, Pharmacy: [facility], 170, cm, 10/05/24 9:01:00 EST, Height/Length Dosing, 78.5, kg, 10/05/24 9:11:00 EST, Weight Dosing Narcan 4 mg/0.1 mL nasal spray: 4 mg, Nasal, As Directed, for suspected overdose symptoms, # 1 kit(s), Refills(s) 0, Pharmacy: [facility], 170, cm, 10/05/24 9:01:00 EST, Height/LengthDosing, 78.5, kg, 10/05/24 9:11:00 EST, Weight Dosing Zofran ODT 4 mg Tab: 4 mg = 1 tab(s), Oral, TID, PRN Nausea, # 60 tab(s), Refills(s) 0, Pharmacy: [facility] #[id number], 170, cm, 05/12/24 15:39:00 EDT, Height/Length Dosing, 73, kg, 05/12/24 15:39:00 EDT, Weight Dosing gabapentin 300 mg Cap: See Instructions, take per office provided instructions until you are taking2 tablets three times per day, # 120 tab(s), Refills(s) 0, Pharmacy: [facility], 170, cm, 10/26/24 10:30:00 EST, Height/Length Dosing, 78.9, kg, 10/26/24 10:3... gabapentin 600 mg Tab: 1,200 mg = 2 tab(s), Oral, TID, X 30 day(s), # 180 tab(s), Refills(s) 0, Pharmacy: [facility], 170, cm, 10/26/24 10:30:00 EST, Height/Length Dosing, 78.9, kg, 10/26/24 10:30:00 EST, Weight Dosing oxyCODONE 5 mg Tab: 0.5 tab, Oral, q6hr, PRN for pain, for leg pain- severe pain only, # 28 tab(s),Refills(s) 0, Pharmacy: [facility], 170, cm, 10/05/24 9:01:00 EST, Height/Length Dosing, 78.5, kg, 10/05/24 9:11:00 EST, Weight Dosing spironolactone 50 mg Tab: 50 mg = 1 tab(s), Oral, Daily, # 90 tab(s), Refills(s) 3, [facility]: [id number], 170, cm, 12/23/23 11:10:00 EDT, Height/Length Dosing, 70.3, kg, 12/23/23 11:10:00 EDT, Weight Dosing Documented Medications Documented Misc DME Prescription: See Instructions, [place] SAP Dressing 4 x 4 dressing Misc [...] list: All Problems Thrombocytopenia / SNOMED CT 841702790 / Confirmed Elevated INR / SNOMED CT 5885136264 / Confirmed Smokeless tobacco use / SNOMED CT 4388739199 / Confirmed Hypokalemia / SNOMED CT 10071829 / Confirmed Elevated fasting glucose / SNOMED CT 063609803 / Confirmed Anemia / SNOMED CT 232732568 / Confirmed Alcohol use disorder in remission / SNOMED CT 00553605 / Confirmed Liver cirrhosis, alcoholic / SNOMED CT 1823253449 / Confirmed Venous ulcer of right leg / SNOMED CT 4222290128 / Confirmed Esophageal varices / SNOMED CT 92491070 / Confirmed Dependent edema / SNOMED CT 507216422 / Confirmed Varicose veins of legs / SNOMED CT 168628085 / Confirmed Portal venous hypertension / SNOMED CT 47854983 / Confirmed HTN (hypertension) / SNOMED CT 9544346920 / Confirmed Headache / SNOMED CT 55933506 / Confirmed Nausea / SNOMED CT 7661620284 / Confirmed Cirrhosis / SNOMED CT 10322928 / Confirmed Tobacco user / SNOMED CT 377745119 / Confirmed Megaloblastic anemia / SNOMED CT 18204564 / Confirmed Severe back pain / SNOMED CT 140544639 / Confirmed Diarrhea / SNOMED CT 846913610 / Confirmed Cholelithiases / SNOMED CT 688661238 / Confirmed Epigastric pain / SNOMED CT 487882189 / Confirmed Vitamin D deficiency / SNOMED CT 87940302 / Confirmed Abnormal stress test / SNOMED CT 3175068529 / Confirmed Iron deficiency anemia / SNOMED CT 012893674 / Confirmed Superfici (more content not included)...[facility]:Result Comment: Electronically Signed By: Carrol MULTANI, Mario Xiong\\.br\\Date and Time Signed: 11/18/24 08:51 [id number] Evaluation + Plan noteExtracted from: Title:chronic pain [...] AM Scheduled Provider:Mario Evans MD [place] Appointment Type:BAD[facility] Follow Up Appointment Date:04/07/2025 08:40:00 AM Scheduled Provider:Vic Carrion Location:[facility] Appointment Type:FM Open Appointment Date:09/28/2025 02:40:00 [...] B12 Level 09/25/25 Radiology* US Liver 11/11/24 [facility] 02-19-2025 NoteConsultation Note Patient is presenting with [...] call with any questions or concerns that arise.[facility] on above:Result Comment: Electronically Signed By: Evelio Carr DO.br\\Date and Time Signed: 10/26/24 11:30 [id number] Hospital Discharge instructions Patient Education 10/05/2024 09:52:58 Heat Therapy, Qnhc-ph-Tthw Heat Therapy Heat therapy can help ease [...] provider. Document Revised: 06/26/2021 Document Reviewed: 06/26/2021 [employer] Patient Education 2023 [employer]. 10/05/2024 09:52:50 How to Take Your Blood Pressure, Xlun-ro-Lwoc How to Take Your Blood Pressure Blood [...] Follow these instructions at home: Medicines Take pkar-mrx-wiadcey and prescription medicines only as told by [...] monitor. You can buy one at a [employer] or online. When choosing one: Choose one with an arm cuff. Choose one that wraps around your upper arm. Only one finger should fit between your arm and the cuff. Do not choose one that measures your blood pressure from your wrist or finger. Where to find more information [employer] Association: www.heart.org Contact a doctor if: [...] provider. Document Revised: 05/08/2022 Document Reviewed: 05/08/2022 [employer] Patient Education 2023 [employer]. 10/05/2024 09:52:47 Esophageal Varices Esophageal Varices Esophageal [...] Follow these instructions at home: Medicines Take gdwd-pdg-jragulw and prescription medicines only as told by [...] provider. Document Revised: 12/11/2020 Document Reviewed: 12/11/2020 [employer] Patient Education 2023 [employer]. 10/05/2024 09:52:46 Cirrhosis Cirrhosis Cirrhosis is long-term [...] provider before taking any new medicines, including tlpk-tfb-gyhhoaw medicines such as NSAIDs. Rest as needed. [...] Document Reviewed: 06/06/2021 Elsevier Patient Education 2023 Re.[employer]. Follow Up Care 08/19/2024 16:34:05 With:Rachel ALBERTS, Vic Friedman, [facility], [facility] Address: [address], [address] [facility] [address] [place] [address] [phone] When:Within 6 Month(s) Comments:sooner if needed. keep specialists appointments. [facility] 01-29-2025 NotePatient Education [...] these instructions at home: Medicines ??? Take qksn-ier-rugbvnu and prescription medicines only as told by [...] provider. Document Revised: 12/11/2020 Document Reviewed: 12/11/2020 [employer] Patient Education ? 2023 [employer]. Cirrhosis Cirrhosis is long-term (chronic) liver injury. The liver is the body's largest internal organ, and it performs many functions. It converts food into energy, removes toxic material from the blood, makes important proteins, and absor (more content not included)...[facility] NoteOncology Progress Note Chief Complaint Anemia; here [...] hemoglovin is 13.9 so will continue to [facility]. No new medicAL issues recently. continues [...] anemia per outside records previously seen at [facility] hemat[facility] by Dr. Restrepo [facility], last visit April 2023 Initially treated with 1mg/kg prednisone January 2022 but he did not tolerate this d/t insomnia and agitation, so stopped after 7 days. He was switched to MMF 1000mg BID stopped along with prophylactic Bactrim. He did not feel w (more content not included)...[facility]12-13-2024 Hospital Discharge instructions Patient Education 08/19/2024 17:26:11 [...] Follow these instructions at home: Medicines Take qstz-vox-pwndpoe and prescription medicines only as told by [...] provider. Document Revised: 02/06/2022 Document Reviewed: 02/06/2022 [employer] Patient Education 2023 [employer]. 08/19/2024 17:26:08 Hypertension, Adult Hypertension, Adult High [...] follow-up visits. This is important. Medicines Take oaxo-meo-nxjywld and prescription medicines only as told by [...] provider. Document Revised: 07/01/2022 Document Reviewed: 07/01/2022 [employer] Patient Education 2023 [employer]. 08/19/2024 17:26:07 Form - Blood Pressure Record [...] Dairy Whole or 2% milk, cream, and eyfv-fon-kvoy. Whole or full-fat cream cheese. Whole-fat or [...] more information National Heart, Lung, and Blood [place] (NHLBI): nhlbi.nih.gov [employer] Heart Association (AHA): heart.org Academy of Nutrition and Dietetics: eatright.org National Kidney Foundation (NKF): kidney.org This information is not intended to replace advice given to you by your health care provider. Make sure you discuss any questions you have with your health care provider. Document Revised: 09/10/2023 Document Reviewed: 09/10/2023 [employer] Patient Education 2023 [employer] 08/19/2024 17:26:03 Esophageal Varices Esophageal Varices [...] Follow these instructions at home: Medicines Take wcav-tie-qllhvwu and prescription medicines only as told by [...] provider. Document Revised: 12/11/2020 Document Reviewed: 12/11/2020 [employer] Patient Education 2023 [employer]. 08/19/2024 17:26:03 Cirrhosis Cirrhosis Cirrhosis is long-term [...] provider before taking any new medicines, including hlni-yws-mjvwogv medicines such as NSAIDs. Rest as needed. [...] provider. Document Revised: 06/06/2021 Document Reviewed: 06/06/2021 [employer] Patient Education 2023 Re[employer]. Follow Up Care 04/29/2024 10:12:47 With:Johanny Gutierrez Address: When:Within 3 Day(s) [facility] 12-13-2024 NotePatient Education [...] one 12 oz bottle (more content not included)...[facility] Evaluation + Plan note* Assessment & Plan Note - Radha Bertrand MD - 05/12/2024 10:03 AM EDTAssociated Problem(s): Lymphedema we have ruled out AV malformation with the angiogram and there is no clear AV fistula, To me this is more available lymphedema I am referring him for complex decongestive therapy [facility]09-05-2024 Miscellaneous Notes* Assessment & Plan Note - Radha Bertrand MD - 05/12/2024 10:03 AM EDTAssociated Problem(s): Lymphedema we have ruled out AV malformation with the angiogram and there is no clear AV fistula, To me this is more available lymphedema I am referring him for complex decongestive therapy documented [facility] History of Present illness Narrative* Radha Bertrand MD - 05/12/2024 9:30 AM EDT Images from the original note were not included. To: Loreta Cummings APRN-[employer] HPI: Will Ralph is a 38 y.o. [...] 04/26/2024 Performed by Radha Bertrand MD at [facility] ESOPHAGOGASTRODUODENOSCOPY W/ BANDING 11/2023 [facility] LEG SURGERY Left 2022 calf I/D MANDIBLE [...] Resource Strain: High Risk (02/27/2023) Received from [facility] Overall Financial Resource Strain (CARDIA) Difficulty of Paying Living Expenses: Very hard Food Insecurity: No Food Insecurity (05/12/2024) Hunger Screening Food Insecurity - Worry: Never True Food Insecurity - Inability: Never True Transportation Needs: No Transportation Needs (02/27/2023) Received from [facility] PRAPARE - Transportation Lack of Transportation (Medical): No Lack of Transportation (Non-Medical): No Physical Activity: Sufficiently Active (02/27/2023) Received from [facility] Exercise Vital Sign Days of Exercise per Week: 7 days Minutes of Exercise per Session: 120 min Stress: Stress Concern Present (02/27/2023) Received from [facility] [place] [employer] - Occupational Stress Questionnaire Feeling of Stress : Very much Social Connections: Socially Isolated (02/27/2023) Received from [facility] Social Connection and Isolation Panel [NHANES] Frequency of Communication with Friends and Family: More than three times a week Frequency of Social Gatherings with Friends and Family: Patient declined Attends Buddhism Services: Never Active Member of Clubs or Organizations: No Attends Club or Organization Meetings: Never Marital Status: Never Interpersonal Safety: Not At Risk (02/27/2023) Received from [facility] Humiliation, Afraid, Rape, and Kick questionnaire Fear of Current or Ex-Partner: No Emotionally Abused: No Physically Abused: No Sexually Abused: No Housing Instability: High Risk (02/27/2023) Received from [facility] Housing Stability Vital Sign Unable to Pay [...] you for your understanding. documented in [facility]High[facility] NoteOncology Progress Note Chief Complaint Anemia; [...] anemia per outside records previously seen at [facility] hemat[facility] by Dr. Tanvir Castillo Black, last [...] hemolysis currently. Macrocytosis is (more content not included)...[facility] Hospital Discharge instructions Patient Education 04/29/2024 10:25:40 [...] Follow these instructions at home: Medicines Take khjr-fqb-kuoipsp and prescription medicines only as told by [...] provider. Document Revised: 02/06/2022 Document Reviewed: 02/06/2022 [employer] Patient Education 2022 [employer]. 04/29/2024 10:25:38 Nausea, Adult Nausea, Adult Nausea [...] water added (diluted fruit juice). Eat bland, ekum-yl-pdpakf foods in small amounts as you are able. These foods include bananas, applesauce, rice, lean meats, toast, and crackers. Avoid drinking fluids that contain a lot of sugar or caffeine, such as energy drinks, sports drinks, and soda. Avoid alcohol. Avoid spicy or fatty foods. General instructions Take ujdj-gkr-xstffiv and prescription medicines only as told by your health care provider. Rest at home while you recover. Drink enough fluid to keep your urine pale yellow. Breathe slowly and deeply when you feel nauseous. Avoid smelling things that have strong odors. Wash your hands often using soap and water for at least 20 seconds. If soap and water are not available, use hand credentials specialist. Make sure that everyone in your household [...] recommendations for eating and drinking and take wkub-odu-shxlutb and prescription medicinesonly as told by your [...] provider. Document Revised: 02/28/2022 Document Reviewed: 02/28/2022 [employer] Patient Education 2022 Re.[employer]. 04/29/2024 10:25:33 Smokeless Tobacco Information, Teen Smokeless [...] the free quitSTART lauren. Hotlines, such as 9-124-DVWN-NOW ( ). Where to find more information You can learn more about the risks of using smokeless tobacco and the benefits of quitting from these sources: Centers for Disease Control and Prevention: cdc.gov National [place] on Drug Abuse: avery.nih.gov [employer] Academy of Pediatrics: healthychildren.org [employer] Cancer Society: cancer.org Contact a health care [...] provider. Document Revised: 05/21/2022 Document Reviewed: 05/21/2022 [employer] Patient Education 2022 Re.Mu. 04/29/2024 10:25:29 Peripheral Edema Peripheral Edema Peripheral [...] by your health care provider. Medicines Take tjmc-dcu-dwqxull and prescription medicines only as told by [...] provider. Document Revised: 04/28/2022 Document Reviewed: 04/28/2022 [employer] Patient Education 2022 Re.Mu. 04/29/2024 10:25:24 Anemia Anemia Anemia is a [...] spleen. Follow these instructions at home: Take uckm-bws-znhwieo and prescription medicines only as told by [...] provider. Document Revised: 11/17/2022 Document Reviewed: 11/17/2022 [employer] Patient Education 2022 Re.Mu. 04/29/2024 10:25:22 DASH Eating Plan DASH Eating [...] Dairy Whole or 2% milk, cream, and scmp-afj-cgtr. Whole or full-fat cream cheese. Whole-fat or [...] more information National Heart, Lung, and Blood [place]: www.nhlbi.nih.gov Iranian Heart Association: www.heart.org Academy of Nutrition and [...] provider. Document Revised: 07/27/2020 Document Reviewed: 07/27/2020 [employer] Patient Education 2022 Re.Mu. 04/29/2024 10:25:19 Esophageal Varices Esophageal Varices Esophageal [...] Follow these instructions at home: Medicines Take wghm-xiv-aiqrwtt and prescription medicines only as told by [...] provider. Document Revised: 12/11/2020 Document Reviewed: 12/11/2020 [employer] Patient Education 2022 Re.Mu. 04/29/2024 10:25:18 Cirrhosis Cirrhosis Cirrhosis is long-term [...] provider before taking any new medicines, including lnjr-plb-vsjrcuz medicines such as NSAIDs. Rest as needed. [...] provider. Document Revised: 06/06/2021 Document Reviewed: 06/06/2021 [employer] Patient Education 2022 Re.Mu. 04/29/2024 10:25:16 Thrombophlebitis Thrombophlebitis Thrombophlebitis is a [...] Follow these instructions at home: Medicines Take mafo-yyc-zhjvkns and prescription medicines only as told by [...] provider. Document Revised: 02/17/2022 Document Reviewed: 02/17/2022 [employer] Patient Education 2022 Re.Mu. Follow Up Care 01/27/2024 11:04:00 With:Loreta Padilla FAM, MED Address: [address] [place] [address], [facility] [place] [phone]- When:Within 3 Month(s) Comments:f/u labs, HTN, cirrhosis, vascular disease [facility] 08-23-2024 NotePatient Education [...] these instructions at home: Medicines ? Take fqtt-dta-tfgkjhk and prescription medicines only as told by [...] tobacco. These products incl (more content not included)...[facility]08-15-2024 Instructions * Pre-Procedure Instructions - Marlin Tierney RN - 04/21/2024 2:45 PM EDT Your surgery/procedure is scheduled at [facility] on 04/26/2024 at 10:45 Arrival Time 8:45 [facility] Address: [address] [place] [address] Park in P1 Parking lot located on [facility]. Report to the Entrance B. Check in at the information desk the surgery. The waiting room located on the second floor. If you have any questions prior to surgery, please call Pre-Admission Clinic at [phone] between 7:30 am and 4:30 pm Thursday through Thursday. If you have questions the morning of surgery, please call the Pre-op Department at [phone]. Notify your SURGEON if you develop any [...] piercings ,hair extensions that contain metal, nail niuean, make-up, and contact lens. You may brush [...] RIGHTS AND RESPONSIBILITIES As a patient at [facility], you have the right to: Receive medical care and be informed of who is taking care of you Be treated with dignity and respect Have a family member/novelties sales representative of choice and your physician notified of your admission Receive information and actively participate in decisions about your care and treatment Refuse care, treatment and services Decide who may provide your support and speak for you Access taoism and spiritual services Participate in ethical issues [...] of hospital charges and payment methods Patient/patient novelties sales representative responsibilities are to: Provide information [...] and report for surgery in clean clothes. [facility]08-15-2024 Miscellaneous Notes* Pre-Procedure Instructions - Marlin Tierney RN - 04/21/2024 2:45 PM EDT Your surgery/procedure is scheduled at [facility] on 04/26/2024 at 10:45 Arrival Time 8:45 [facility] Address: [address] [place] [address] Park in P1 Parking lot located on [facility]. Report to the Entrance B. Check in at the information desk the surgery. The waiting room located on the second floor. If you have any questions prior to surgery, please call Pre-Admission Clinic at [phone] between 7:30 am and 4:30 pm Thursday through Thursday. If you have questions the morning of surgery, please call the Pre-op Department at [phone]. Notify your SURGEON if you develop any [...] piercings ,hair extensions that contain metal, nail niuean, make-up, and contact lens. You may brush [...] RIGHTS AND RESPONSIBILITIES As a patient at [facility], you have the right to: Receive medical care and be informed of who is taking care of you Be treated with dignity and respect Have a family member/novelties sales representative of choice and your physician notified of your admission Receive information and actively participate in decisions about your care and treatment Refuse care, treatment and services Decide who may provide your support and speak for you Access taoism and spiritual services Participate in ethical issues [...] of hospital charges and payment methods Patient/patient novelties sales representative responsibilities are to: Provide information [...] surgery in clean clothes. documented in this encounterMcKitrick HospitalEtacts [facility] [id number] Evaluation + Plan note* Assessment & Plan Note - Radha Bertrand MD - 04/14/2024 9:26 AM EDT Associated Problem(s): AVM (arteriovenous malformation) RLE angio, possible intervention [facility] [id number] Miscellaneous Notes* Assessment & Plan Note - Radha Bertrand MD - 04/14/2024 9:26 AM EDTAssociated Problem(s): AVM (arteriovenous malformation) RLE angio, possible intervention documented in [facility] History of Present illness Narrative* Radha [...] Resource Strain: High Risk (02/27/2023) Received from [facility] Overall Financial Resource Strain (CARDIA) Difficulty of Paying Living Expenses: Very hard Food Insecurity: No Food Insecurity (04/14/2024) Hunger Screening Food Insecurity - Worry: Never True Food Insecurity - Inability: Never True Transportation Needs: No Transportation Needs (02/27/2023) Received from [facility] PRAPARE - Transportation Lack of Transportation (Medical): No Lack of Transportation (Non-Medical): No Physical Activity: Sufficiently Active (02/27/2023) Received from [facility] Exercise Vital Sign Days of Exercise per Week: 7 days Minutes of Exercise per Session: 120 min Stress: Stress Concern Present (02/27/2023) Received from [facility] [place] of Occupational Health - Occupational Stress Questionnaire Feeling of Stress : Very much Social Connections: Socially Isolated (02/27/2023) Received from [facility] Social Connection and Isolation Panel [NHANES] Frequency of Communication with Friends and Family: More than three times a week Frequency of Social Gatherings with Friends and Family: Patient declined Attends Buddhism Services: Never Active Member of Clubs or Organizations: No Attends Club or Organization Meetings: Never Marital Status: Never Interpersonal Safety: Not At Risk (02/27/2023) Received from [facility] Humiliation, Afraid, Rape, and Kick questionnaire Fear of Current or Ex-Partner: No Emotionally Abused: No Physically Abused: No Sexually Abused: No Housing Instability: High Risk (02/27/2023) Received from [facility] Housing Stability Vital Sign Unable to Pay [...] you for your understanding. documented in this encounterHighland [facility]07-[facility]24 NoteOncology Progress Note Chief Complaint Follow [...] anemia per outside records previously seen at [facility] by Dr. Tanvir Black, last visit [...] Janet PAYNE-MONTY, Ella Polk, ONC [facility] [address] (more content not included)...[facility]06-24-2024 NoteOncology Progress Note Chief Complaint New pt here for Iron deficiency, Pt states that he seen a Hem doctor in [place] about a [address] Mayuri [...] anemia per outside records previously seen at [facility] by Dr. Restrepo [facility], last visit April 2023 Initially [...] smear, haptoglobin, basil, ld (more content not included)...[facility]06-20-2024 Hospital Discharge instructions Follow Up Care 02/25/2024 10:04:03 With:Janet HUERTA, Ella Polk, ONC Address: [address] [address] [phone] When: Unknown Comments:start folic acid 1mg daily- [facility], cmp, ldh, reticulocytes, haptoglobin in 1mofollow-up with Dr. Lees in 1mo [facility]05-31-2024 Hospital Discharge instructions Follow Up Care 02/05/2024 13:11:28 With:Janet HUERTA, Ella Polk, ONC Address: [address] [phone] When: Unknown Comments:get [facility]ologyfollow-up in 2-3 weekswill get labs prior to visit [facility]05-22-2024 Hospital Discharge instructions Patient Education 01/27/2024 11:32:44 [...] Follow these instructions at home: Medicines Take xabo-bxj-gsrkibx and prescription medicines only as told by [...] more information Society for Vascular Surgery: vascular.org [place] Heart Association: heart.org National Heart, Lung, and Blood [place]: nhlbi.nih.gov Contact a health care provider if: [...] provider. Document Revised: 02/25/2021 Document Reviewed: 02/25/2021 [employer] Patient Education 2022 Re.Mu. 01/27/2024 11:32:41 Iron Deficiency Anemia, Adult Iron [...] supplement. Medicines to make heavy menstrual flow pharmacy tech customer service. Surgery or additional testing procedures to determine the cause of your anemia. You may need repeat blood tests to determine whether treatment is working. If the treatment does not seem to be working, you may need more tests. Follow these instructions at home: Medicines Take nbcp-gsz-iunszab and prescription medicines only as told by [...] to keep your urine pale yellow. Take apjk-oja-uhwpyeg or prescription medicines. Eat foods that are [...] the cause of your iron deficiency. Take rzmx-phy-rwpxsow and prescription medicines only as told by [...] provider. Document Revised: 10/01/2022 Document Reviewed: 10/01/2022 [employer] Patient Education 2022 Re.Mu. 01/27/2024 11:32:38 Peripheral Edema Peripheral Edema Peripheral [...] by your health care provider. Medicines Take gede-vtx-ptgiqdg and prescription medicines only as told by [...] provider. Document Revised: 04/28/2022 Document Reviewed: 04/28/2022 [employer] Patient Education 2022 [employer] Inc. 01/27/2024 11:32:35 Thrombocytopenia Thrombocytopenia Thrombocytopenia is [...] Follow these instructions at home: Medicines Take cljh-wis-lmagoai and prescription medicines only as told by [...] provider. Document Revised: 02/06/2022 Document Reviewed: 02/06/2022 [employer] Patient Education 2022 Re.Mu. 01/27/2024 11:32:32 Esophageal Varices Esophageal Varices Esophageal [...] Follow these instructions at home: Medicines Take owjq-pob-ndtrghi and prescription medicines only as told by [...] provider. Document Revised: 12/11/2020 Document Reviewed: 12/11/2020 [employer] Patient Education 2022 [employer]. 01/27/2024 11:32:31 Cirrhosis Cirrhosis Cirrhosis is [...] provider before taking any new medicines, including vwbf-gpd-gcpmwue medicines such as NSAIDs. Rest as needed. [...] provider. Document Revised: 06/06/2021 Document Reviewed: 06/06/2021 [employer] Patient Education 2022 Re.Mu. 01/27/2024 11:32:30 Alcoholic Liver Disease Alcoholic Liver [...] can provide emotional support and guidance. Take heng-wgj-fqcjhkj and prescription medicines only as told by [...] provider. Document Revised: 06/06/2021 Document Reviewed: 06/06/2021 [employer] Patient Education 2022 Re.Mu. 01/27/2024 11:32:27 DASH Eating Plan DASH Eating [...] Dairy Whole or 2% milk, cream, and chvy-pbb-jumg. Whole or full-fat cream cheese. Whole-fat or [...] more information National Heart, Lung, and Blood [place]: www.nhlbi.nih.gov [place] Heart Association: www.heart.org Academy of Nutrition and [...] provider. Document Revised: 07/27/2020 Document Reviewed: 07/27/2020 [employer] Patient Education 2022 Re.Mu. Follow Up Care 10/28/2023 11:01:13 With:John ALBERTS, KEI Perkins, [facility] Address: [address] [address]- When:Within 3 Month(s) Comments:f/u labs, HTN, cirrhosis, gallstones, thrombocytopenia [facility] 04-24-2024 NoteHNO ID: [id number] Author: MARGARET ZUÑIGA MD Service: ? Author Type: Physician Type: Progress Notes Filed: 12/30/2023 16:58 Note Text: PROGRESS NOTES PATIENT NAME: Will Ralph Assessment ASSESSMENT AND PLAN The patient is a 37-year-old male with a known history of alcoholic cirrhosis and portal hypertension. He presents with abdominal pain and abnormal labs from [facility]. These values are visible in [...] option of seeing [facility] surgery at [facility] as this would be the best option [...] gallstones. Blood work was also performed through [facility] along with the CT scan. His liver function tests were elevated along with his INR and bilirubin aware of his baseline laboratory values. He does see a germination worker and is being treated for liver failure. [...] naloxone 4 mg/actuation nasal spray (NARCAN) 1 [place] by nasal (alternating) route. oxyCODONE ir (OXYIR) [...] recent labs and imaging results. Margaret Zuñiga [facility]04-24-2024 History of Present illness Narrative* Margaret Zuñiga MD - 12/30/2023 4:50 PM EDT PROGRESS NOTES PATIENT NAME: Will Ralph Assessment ASSESSMENT AND PLAN The patient is a 37-year-old male with a known history of alcoholic cirrhosis and portal hypertension. He presents with abdominal pain and abnormal labs from [facility]. These values are visible in [...] the option of seeing HPB surgery at [facility] as this would be the best option [...] gallstones. Blood work was also performed through [facility] along with the CT scan. His liver function tests were elevated along with his INR and bilirubin aware of his baseline laboratory values. He does see a germination worker and is beingtreated for liver failure. He [...] naloxone 4 mg/actuation nasal spray (NARCAN) 1 [place] by nasal (alternating) route. oxyCODONE ir (OXYIR) [...] results. Margaret Zuñiga MD documented in [facility]Prem[facility] Discharge instructions Patient Education 12/23/2023 12:42:20 [...] dietitian for more information. General instructions Take nzxs-cbw-jddcnmm and prescription medicines only as told by [...] provider. Document Revised: 05/30/2022 Document Reviewed: 05/30/2022 [employer] Patient Education 2022 Re.Mu. 12/23/2023 12:42:19 Preventing Vitamin D Deficiency Preventing [...] such as almond, soy, or oat milks. ?Jayess juice. ?Margarine. When choosing foods, check the [...] including vitamins, herbs, eye drops, creams, and ewpd-cou-sdfcvyi medicines. Take mdfw-aoa-obaiqsz and prescription medicines only as told by [...] provider. Document Revised: 05/30/2022 Document Reviewed: 05/30/2022 [employer] Patient Education 2022 Re.Mu. 12/23/2023 12:42:17 Nausea, Adult Nausea, Adult Nausea [...] water added (diluted fruit juice). Eat bland, mnih-qs-rbpgss foods in small amounts as you are able. These foods include bananas, applesauce, rice, lean meats, toast, and crackers. Avoid drinking fluids that contain a lot of sugar or caffeine, such as energy drinks, sports drinks, and soda. Avoid alcohol. Avoid spicy or fatty foods. General instructions Take ctpk-ymk-wdskwkq and prescription medicines only as told by your health care provider. Rest at home while you recover. Drink enough fluid to keep your urine pale yellow. Breathe slowly and deeply when you feel nauseous. Avoid smelling things that have strong odors. Wash your hands often using soap and water for at least 20 seconds. If soap and water are not available, use hand credentials specialist. Make sure that everyone in your household [...] recommendations for eating and drinking and take rjwg-yfl-zlqzhwg and prescription medicinesonly as told by your [...] provider. Document Revised: 02/28/2022 Document Reviewed: 02/28/2022 [employer] Patient Education 2022 Re.Mu. 12/23/2023 12:42:14 Cellulitis, Adult Cellulitis, Adult Cellulitis [...] Follow these instructions at home: Medicines Take arjp-idd-etppkeq and prescription medicines only as told by [...] such as antibiotic medicines or antihistamines. Take jedi-wyk-gtnplwh and prescription medicines only as told by [...] provider. Document Revised: 06/04/2022 Document Reviewed: 06/05/2022 [employer] Patient Education 2022 Re.Mu. 12/23/2023 12:42:12 Esophageal Variceal Ligation Esophageal Variceal [...] including vitamins, herbs, eye drops, creams, and qqcg-sjv-wxifrmd medicines. Any problems you or family members [...] provider tells you to take them. Taking lagk-udk-rupixnr medicines, vitamins, herbs, and supplements. General information [...] provider. Document Revised: 12/11/2020 Document Reviewed: 12/11/2020 [employer] Patient Education 2022 Re.Mu. 12/23/2023 12:42:09 Nausea and Vomiting, Adult Nausea [...] water added (diluted fruit juice). Eat bland, dsnm-qj-hahfeq foods in small amounts as you are able. These foods include bananas, applesauce, rice, lean meats, toast, and crackers. Avoid fluids that contain a lot of sugar or caffeine, such as energy drinks, sports drinks, and soda. Avoid alcohol. Avoid spicy or fatty foods. General instructions Take dnkl-tmt-auzsiix and prescription medicines only as told by your health care provider. Drink enough fluid to keep your urine pale yellow. Wash your hands often using soap and water for at least 20 seconds. If soap and water are not available, use hand credentials specialist. Make sure that everyone in your household [...] eating and drinking to prevent dehydration. Take ylof-fvc-yagbgmn and prescription medicines only as told by [...] provider. Document Revised: 02/28/2022 Document Reviewed: 02/28/2022 [employer] Patient Education 2022 Re.Mu. 12/23/2023 12:22:45 Gallbladder Eating Plan Gallbladder Eating [...] food, fatty cuts of meat, ice cream, kiswahili toast, sweet rolls, pizza, cheese bread, foods covered with butter, creamy sauces, or cheese. Fried foods. These include kiswahili fries, tempura, battered fish, breaded chicken, fried [...] provider. Document Revised: 08/08/2022 Document Reviewed: 08/08/2022 [employer] Patient Education 2022 [employer] 12/23/2023 12:22:34 Cholecystitis Cholecystitis Cholecystitis is [...] Follow these instructions at home: Medicines Take cdhj-hjc-dahzriw and prescription medicines only as told by [...] provider. Document Revised: 02/25/2022 Document Reviewed: 02/25/2022 [employer] Patient Education 2022 Re.Mu. 12/23/2023 12:22:32 Cholelithiasis Cholelithiasis Cholelithiasis is a [...] Follow these instructions at home: Medicines Take dxot-yee-dezjnwu and prescription medicines only as told by [...] important. Where to find more information National [place] of Diabetes and Digestive and Kidney Diseases: [...] provider. Document Revised: 07/16/2020 Document Reviewed: 07/16/2020 [employer] Patient Education 2022 Re.Mu. Follow Up Care 12/14/2023 11:01:47 With:John ALBERTS, KEI Perkins, [facility] Address: [facility] [address], [facility] [place] [phone]- When:Within 1 Month(s) Comments:f/u abd pain, gall stone, cirrhosis, thrombocytopenia, fatigue [facility] 04-07-2024 Evaluation + [...] Oral, q6hr, PRN, Not taking Potassium Chloride (Sfy-Omks-Rhx M20) 20 mEq oral tablet, extended release, [...] Information Loreta Cummings In [address], [address] [place] [phone]- [facility] (1) Additional Instructions: Extracted from: Title:Admission H & P Author[facility]esh [facility]ULTANI[facility] Date:12/11/23 38 y/o M admited for [...] AM Scheduled Provider:Loreta Padilla Location:[facility] Appointment Type:FM Open Appointment Date:05/12/2024 03:15:00 PM Scheduled Provider:Carrol MULTANI, Mario Xiong [facility] Appointment Type:BADH Follow Up Future Scheduled Tests Laboratory* HgbA1c 07/24/23 * Udrkv-3-Garvvrjfurh 09/01/23 * Ceruloplasmin 09/01/23 * Antimitochondrial Antibody, [...] Acid 07/24/23 * Vitamin B12 Level 07/24/23 [facility]04-07-2024 Hospital Discharge instructions Patient Education 12/13/2023 10:04:57 Drug Allergy, Zbnx-pu-Fbhy Drug Allergy A drug allergy is when [...] medicines that you are allergic to. Take wpii-iec-dlzsxyn and prescription medicines only as told by your doctor. If you were given allergy medicines, do not drive until your health care provider tells you it is safe. If you have hives or a rash: ?Use pbgq-fvx-ihhqoag medicines as told by your doctor. ?Put [...] provider. Document Revised: 02/03/2022 Document Reviewed: 02/03/2022 [employer] Patient Education 2022 Re.Mu. 12/13/2023 10:04:49 Chronic Back Pain Chronic Back [...] them backward. Do not sit or knitting tester one place for long periods of time. [...] prescription pain medicine, or muscle relaxants. Take uhop-tmr-ybpeccb and prescription medicines onlyas told by your health care provider. Ask your health care provider if the medicine prescribed to you: ?Requires you to avoid driving or using machinery. ?Can cause constipation. You may need to take these actions to prevent or treat constipation: ?Drink enough fluid to keep your urine pale yellow. ?Take edpl-nak-gxyyblq or prescription medicines. ?Eat foods that are [...] provider. Document Revised: 10/03/2020 Document Reviewed: 10/03/2020 [employer] Patient Education 2022 Re.Mu. 12/13/2023 10:04:40 Cirrhosis Cirrhosis Cirrhosis is long-term [...] provider before taking any new medicines, including lvey-ovg-vmxfqzc medicines such as NSAIDs. Rest as needed. [...] provider. Document Revised: 06/06/2021 Document Reviewed: 06/06/2021 [employer] Patient Education 2022 Re.Mu. Follow Up Care 12/11/2023 09:05:25 With:Loreta Cummings Address: [facility] [address] [address] [employer] (1) When: Unknown [facility]04-07-2024 NoteAdmission and Discharge Information Admitting Physician - [...] Oral, q6hr, PRN, Not taking Potassium Chloride (Ado-Ogfm-Ypt M20) 20 mEq oral tablet, extended release, [...] Information Loreta Cummings In 0 days [address], [address] [address] [facility] (1) Additional Inst[facility]Result Comment: Electronically Signed By: Rajesh MULTANI, Desi\\.br\\Date and Time Signed: 12/13/23 07:52 [id number] Hospital Discharge instructions Patient Education 11/11/2023 16:42:11 Endoscopy, Care After Procedure [facility] Care After Procedure Please read the instructions outlined below and refer to this sheet in the next few weeks. These discharge instructions provide you with general information on caring for [facility] Your doctor may also give you [...] blood. Document Released: 04/07/2005 Document Re-Released: 02/15/2007 [facility] Patient Information [employer] acquired by [employer]. 11/11/2023 16:42:11 Esophageal Varices Esophageal Varices Esophageal [...] Follow these instructions at home: Medicines Take vzdn-xmv-xsrgnga and prescription medicines only as told by [...] provider. Document Revised: 12/11/2020 Document Reviewed: 12/11/2020 [employer] Patient Education 2022 Re.Mu. Follow Up Care 10/09/2023 11:37:06 With:Carrol MULTANI, JOE [place], [facility] Address: [address], [address] [phone] When: Unknown Comments:Office will call to schedule follow up appointment and/or review any pending biopsy resultsCall forany problems. [facility]02-21-2024 Hospital Discharge instructions Patient Education 10/28/2023 15:32:25 [...] of hard liquor (44 mL). Medicines Take zaab-rhy-tvbcijq and prescription medicines only as told by [...] Centers for Disease Control and Prevention: www.cdc.gov/heartdisease [employer]: www.heart.org Summary Heart disease is [...] provider. Document Revised: 04/23/2022 Document Reviewed: 04/23/2022 [employer] Patient Education 2022 Re.Mu. 10/28/2023 15:32:24 Form - Blood Pressure Record [...] provider. Document Revised: 05/08/2022 Document Reviewed: 05/08/2022 [employer] Patient Education 2022 Re.Mu. 10/28/2023 15:32:23 DASH Eating Plan DASH Eating [...] Dairy Whole or 2% milk, cream, and kogp-jtv-aesv. Whole or full-fat cream cheese. Whole-fat or [...] more information National Heart, Lung, and Blood [place]: www.nhlbi.nih.gov [employer] Association: www.heart.org Academy of Nutrition and [...] provider. Document Revised: 07/27/2020 Document Reviewed: 07/27/2020 [employer] Patient Education 2022 Re.Mu. 10/28/2023 15:32:21 Hypertension, Adult Hypertension, Adult High [...] follow-up visits. This is important. Medicines Take axyo-rbg-rlwsgmf and prescription medicines only as told by [...] provider. Document Revised: 07/01/2022 Document Reviewed: 07/01/2022 [employer] Patient Education 2022 Re.Mu. 10/28/2023 15:32:19 Alcoholic Liver Disease Alcoholic Liver [...] can provide emotional support and guidance. Take zgya-eko-mkmhdxo and prescription medicines only as told by [...] provider. Document Revised: 06/06/2021 Document Reviewed: 06/06/2021 [employer] Patient Education 2022 Re.Mu. 10/28/2023 15:32:16 Thrombocytopenia Thrombocytopenia Thrombocytopenia is a [...] Follow these instructions at home: Medicines Take zwml-pjk-bpxrola and prescription medicines only as told by [...] provider. Document Revised: 02/06/2022 Document Reviewed: 02/06/2022 [employer] Patient Education 2022 Re.Mu. 10/28/2023 15:32:14 Varicose Veins Varicose Veins Varicose [...] Follow these instructions at home: Medicines Take axat-qbg-pbqlaee and prescription medicines only as told by [...] provider. Document Revised: 02/05/2022 Document Reviewed: 02/05/2022 [employer] Patient Education 2022 Re.Mu. 10/28/2023 15:32:09 Nausea, Adult Nausea, Adult Nausea [...] water added (diluted fruit juice). Eat bland, jlwf-oc-sgnoih foods in small amounts as you are able. These foods include bananas, applesauce, rice, lean meats, toast, and crackers. Avoid drinking fluids that contain a lot of sugar or caffeine, such as energy drinks, sports drinks, and soda. Avoid alcohol. Avoid spicy or fatty foods. General instructions Take dodj-ttc-evxdiar and prescription medicines only as told by your health care provider. Rest at home while you recover. Drink enough fluid to keep your urine pale yellow. Breathe slowly and deeply when you feel nauseous. Avoid smelling things that have strong odors. Wash your hands often using soap and water for at least 20 seconds. If soap and water are not available, use hand credentials specialist. Make sure that everyone in your household [...] recommendations for eating and drinking and take xaig-zss-kwhbycy and prescription medicinesonly as told by your [...] Document Reviewed: 02/28/2022 Elsevier Patient Education 2022 Re.Mu. [facility] Primary Care 01-15-2024 Hospital Discharge instructions Follow Up Care 09/21/2023 12:59:46 With:Loreta Padilla FAM, [facility] Address: [address], [facility] [address] [address]- When: Unknown [facility] 12-20-2023 Hospital Discharge [...] products, such as yogurt. General instructions Take lnrg-ynb-droetza and prescription medicines only as told by [...] provider. Document Revised: 05/08/2022 Document Reviewed: 05/08/2022 [employer] Patient Education 2022 Re.Mu. 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 How is this treated? This condition may [...] detergents, or perfumes. Medicines Take or use qasm-mzd-ervepot and prescription medicines only as told by [...] provider. Document Revised: 11/04/2021 Document Reviewed: 11/04/2021 [employer] Patient Education 2022 Re.Mu. 08/26/2023 11:02:52 Alcoholic Liver Disease Alcoholic Liver [...] can provide emotional support and guidance. Take vjkx-zpo-fhxziri and prescription medicines only as told by [...] provider. Document Revised: 06/06/2021 Document Reviewed: 06/06/2021 [employer] Patient Education 2022 Re.Mu. 08/26/2023 10:41:25 Incision and Drainage Incision and [...] including vitamins, herbs, eye drops, creams, and mkgl-ied-jabfseb medicines. Any problems you or family members [...] provider tells you to take them. Taking bpov-iuj-dijyuyq medicines, vitamins, herbs, and supplements. Tests You [...] provider. Document Revised: 11/27/2022 Document Reviewed: 06/05/2022 [employer] Patient Education 2022 [employer] 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 How is this treated? This condition may [...] detergents, or perfumes. Medicines Take or use gswy-mih-ghtmtir and prescription medicines only as told by [...] provider. Document Revised: 11/04/2021 Document Reviewed: 11/04/2021 [employer] Patient Education 2022 Re.Mu. 08/26/2023 10:41:14 Hypokalemia Hypokalemia Hypokalemia means that [...] products, such as yogurt. General instructions Take wzfv-aur-eldzdwe and prescription medicines only as told by [...] provider. Document Revised: 05/08/2022 Document Reviewed: 05/08/2022 [employer] Patient Education 2022 Re.Mu. Follow Up Care 07/24/2023 09:02:18 With:Loreta Padilla [facility], [facility] Address: [address], [address] [place] [phone] Business (1) When:Within 2 Month(s) Comments:3 mo f/u for ulcers, liver disease, labs [facility] 11-17-2023 Hospital Discharge [...] provider before taking any new medicines, including bbgy-rvs-cxfuyap medicines such as NSAIDs. Rest as needed. [...] provider. Document Revised: 06/06/2021 Document Reviewed: 06/06/2021 [employer] Patient Education 2022 Re.Mu. 07/24/2023 09:14:01 Heart Disease Prevention Heart Disease [...] of hard liquor (44 mL). Medicines Take zgxo-bvw-iqzpzbv and prescription medicines only as told by [...] Centers for Disease Control and Prevention: www.cdc.gov/heartdisease [employer] Heart Association: www.heart.org Summary Heart disease is [...] provider. Document Revised: 04/23/2022 Document Reviewed: 04/23/2022 [employer] Patient Education 2022 Re.Mu. 07/24/2023 09:13:57 Anemia Anemia Anemia is a [...] spleen. Follow these instructions at home: Take jgid-kmw-ytlldlp and prescription medicines only as told by [...] provider. Document Revised: 07/08/2022 Document Reviewed: 07/31/2020 [employer] Patient Education 2022 Re.Mu. 07/24/2023 09:13:53 Hypokalemia Hypokalemia Hypokalemia means that [...] products, such as yogurt. General instructions Take twdl-gbc-leozpco and prescription medicines only as told by [...] provider. Document Revised: 05/08/2022 Document Reviewed: 05/08/2022 [employer] Patient Education 2022 Re.Mu. 07/24/2023 09:13:45 Thrombocytopenia Thrombocytopenia Thrombocytopenia is a [...] Follow these instructions at home: Medicines Take hllu-ehu-psyhwoc and prescription medicines only as told by [...] provider. Document Revised: 02/06/2022 Document Reviewed: 02/06/2022 [employer] Patient Education 2022 Re.Mu. [facility] 10-13-2023 Hospital Discharge instructions Patient Education 06/19/2023 13:28:07 Insect Bite, Adult, Hgqn-ux-Lbth Insect Bite, Adult An insect bite can [...] of an anaphylactic reaction may include: Feeling senior managing director the face (flushed). Your face may turn [...] a day. General instructions Apply or take tbbs-wjz-jcddsws and prescription medicines only as told by [...] ?DEET. ?Picaridin. ?Oil of lemon eucalyptus (OLE). ?[id number]. Consider spraying your clothing with a pesticide [...] an anaphylactic reaction. Signs may include: ?Feeling senior managing director the face. ?Itchy, red, swollen areas of [...] provider. Document Revised: 05/26/2022 Document Reviewed: 05/26/2022 [employer] Patient Education 2022 Re.Mu. Follow Up Care 06/19/2023 12:16:43 With:Colby Link Address: [address], [address] [facility] [place] [address]- Business (1) When:06/22/2023 12:39:51 Comments:Follow-up with your primary care provider in 3 to 5 days. If symptoms worsen, do not improve, or new symptoms arise please report back to emergency department for further evaluation. [facility]08-18-2023 Evaluation note* Encounter Date Diagnosis Assessment Notes [...] sooner should he deteriorate in any way [place] [employer] Other 08-15-2023 History of Present illness Narrative* [...] well. Monie Hernandez RN documented in this [id number] History of Present illness Narrative* Gustabo Ritchie [...] 100 %. Gustabo Pittman documented in this [id number] Hospital Discharge instructions Patient Education 03/22/2023 21:57:13 [...] Follow these instructions at home: Medicines Take pfvh-qdw-crpofkk and prescription medicines only as told by [...] such as antibiotic medicines or antihistamines. Take xpnl-vnw-myytwpf and prescription medicines only as told by [...] provider. Document Revised: 06/05/2022 Document Reviewed: 06/05/2022 [employer] Patient Education 2022 Re.Mu. Follow Up Care 03/22/2023 19:36:11 With:THEO BURKS Address:Unknown When:Within 3 Day(s) [facility]07-16-2023 Evaluation + Plan noteExtracted from: Title:ED Note Author:Martin Reese DO Date :03/22/23 Cellulitis (L03.90: Cellulit is, unspecified) Orders: ondansetron, 4 mg = 1 tab(s), Oral, q8hr, PRN Nausea/Vomiting, # 20 tab(s), Refills(s) 0, Pharmacy: [facility] #[id number], 170, cm, 03/22/23 20:14:00 EDT, Height/Length Dosing, [...] day(s), 28 tab(s), Refill(s) 0, [facility] #[id number], 170, cm, 03/22/23 20:14:00 EDT, Height/Length Dosing, [...] Charcoal 03/22/23 * Blood Culture Charcoal 03/22/23 [facility]06-30-2023 Telephone encounter Note* Telephone Encounter - Deborah Gutierrez CPhT - 03/06/2023 8:55 AM EDT A prior authorization has been started for Lidocaine 5% patch PA status can be found under the prescription order in the Medication Tab. History or status of the PA can also be found in Chart Review under Referral tab. [id number] Miscellaneous Notes* Telephone Encounter - Deborah Gutierrez CPhT - 03/06/2023 8:55 AM EDT A prior authorization has been started for Lidocaine 5% patch PA status can be found under the prescription order in the Medication Tab. History or status of the PA can also be found in Chart Review under Referral tab. documented in this [id number] Telephone encounter Note* Telephone Encounter - Nighat Mahmood APRN-CNP - 02/27/2023 5:05 PM EDT Pt had video visit scheduled. Link sent to him, but he never checked in. [facility] Work Phone: [phone]) [phone] Miscellaneous Notes* Telephone Encounter - Nighat Mahmood [...] Recommendation: n/a Thank you documented in this [id number] Telephone encounter Note* Telephone Encounter - Jordana Stanton RN - 02/27/2023 2:55 PM EDT Called the patient Reminded him of his video visit this ThursdayMarch 03 with Lindsey Mahmood Pt concerned about his leg, he will send a picture to My Chart To his provider Concerned about his infection Notified Lindsey Mahmood [facility] Work Phone: 1(765) 430-575106-23-2023 Telephone encounter Note* Telephone Encounter - Tobi Bowen - 02/27/2023 2:36 PM EDT What is the need: call back Situation: Pt states that the doctors office called him stating that they were running behind but he never got a phone call. Please advise Background: Please contact and advise Assessment: Pt contact info is Phone numbers Recommendation: n/a Thank you [id number] Evaluation + Plan noteExtracted from: Title:ED Note Author:Omid PARKER, Xander Field te:02/18/23 Cellulitis of right leg (L03 .115: Cellulitis of right lower limb) Right leg pain (M79.604: Pain in right leg) Orders: clindamycin, 300 mg = 1 cap(s), Oral, q6hr, X 7 day(s), # 28 cap(s), Refills(s) 0, Pharmacy: [facility] #[id number], 170, cm, 02/18/23 7:51:00 EDT, Height/Length Dosing, [...] 15 cap(s), Refills(s) 0, Pharmacy: [facility] #[id number], 170, cm, 02/18/23 7:51:00 EDT, Height/Length Dosing, 77, kg, 02/18/23 7:51:00 EDT, Weight Dosing US LE Venous Duplex Right [facility]06-14-2023 Hospital Discharge instructions Patient Education 02/18/2023 09:31:38 RICE Therapy for Routine Care of Injuries, Jqeb-nz-Agkb RICE Therapy for Routine Care of Injuries [...] provider. Document Revised: 06/13/2021 Document Reviewed: 06/13/2021 [employer] Patient Education 2022 Re.Mu. 02/18/2023 09:31:38 Musculoskeletal Pain Musculoskeletal Pain Musculoskeletal [...] by mouth or applied to theskin. Take gvwk-uqv-qruguri and prescription medicines only as told by [...] provider. Document Revised: 12/27/2020 Document Reviewed: 12/05/2020 [employer] Patient Education 2022 Re.Mu. 02/18/2023 09:31:38 Pain Without a Known Cause [...] Follow these instructions at home: Medicines Take fcgx-gpg-djugpxi and prescription medicines only as told by your health care provider. Ask your health care provider if the medicine prescribed to you: ?Requires you to avoid driving or using machinery. ?Can cause constipation. You may need to take these actions to prevent or treat constipation: ? Drink enough fluid to keep your urine pale yellow. ?Take sjzk-nog-etszaba or prescription medicines. ?Eat foods that are [...] the National Suicide Prevention Lifeline at or 977. This is open 24 hours a day. Text the Crisis Text Line at 428710. Summary Pain can occur in any part [...] provider. Document Revised: 04/23/2022 Document Reviewed: 04/23/2022 [employer] Patient Education 2022 Re.Mu. 02/18/2023 09:31:38 Cellulitis, Adult, Figr-dx-Mmlh Cellulitis, Adult Cellulitis is a skin infection. [...] Follow these instructions at home: Medicines Take zzjq-sxb-ijuwpbs and prescription medicines only as told by [...] provider. Document Revised: 06/05/2022 Document Reviewed: 06/05/2022 [employer] Patient Education 2022 Re.Mu. Follow Up Care 02/18/2023 07:42:07 With:THEO BURKS Address:Unknown When:02/21/2023 09:01:56 Comments:Follow-up with your primary care provider in 3 to 5 days. If symptoms worsen, do not improve, or new symptoms arise please report back to emergency department for further evaluation. [facility]05-16-2023 Surgery Postoperative evaluation and management note* Post-Procedure Note - Brayan Babin MD - 01/20/2023 10:23 AM EDT POST-PROCEDURE NOTE Procedure: Transjugular liver biopsy with pressure measurements Pre-operative Diagnosis: Cirrhosis, diagnostic evaluation Post-operative Diagnosis: Portal hypertension, cirrhosis Attending: Erica Rock MD Math Professor: Leon Hernadez MD (attending) Brayan Babin [...] of the procedure. Brayan Babin MD Radiology [facility] Work Phone: [phone]) 401-179705-16-2023 Miscellaneous Notes* Post-Procedure Note - Brayan Babin MD - 01/20/2023 10:23 AM EDT POST-PROCEDURE NOTE Procedure: Transjugular liver biopsy with pressure measurements Pre-operative Diagnosis: Cirrhosis, diagnostic evaluation Post-operative Diagnosis: Portal hypertension, cirrhosis Attending: Erica Rock MD Math Professor: Leon Hernadez MD (attending) Brayan Babin [...] B27 positive) 2003 Followed with Rheum at [facility] Open fracture of other and [...] Directives (Living will, health care power of civil rights attorney): none Patient Recent Code Status: Prior Code Status For This Procedure: Full Code Dorota Aj MD Radiology documented in this [id number] Surgery Preoperative evaluation and management note* Pre-Procedure [...] B27 positive) 2003 Followed with Rheum at [facility] Open fracture of other and [...] Directives (Living will, health care power of civil rights attorney): none Patient Recent Code Status: Prior Code Status For This Procedure: Full Code Dorota Aj MD Radiology [facility] Work Phone: 1([phone]) 757-979505-08-2023 History of Present illness Narrative* Meka Lucas RN - 01/12/2023 11:11 AM EDT Labs drawn peripherally from right forearm. documented in this [id number] History of Present illness Narrative* Gustabo Ritchie [...] 3.2 oz (79 kg), SpO2 100 %. Gustabocalros eduardo Pittman documented in this [id number] History of Present illness Narrative* April Jewell [...] Hepatology [facility] documented in this [id number] Instructions* Patient Instructions* Dejuan Lechuga MD - 12/16/2022 10:23 AM EDT [facility] [phone] [address] [place] [address] Lab tests can be done at a scheduled visit, or by appointment. [facility] [phone] [place] [address] Park in the [facility] [place] [facility] ([facility] Under the [facility]. Pathology is located in the [facility] [place] of the Outpatient [place] on the 2nd floor.Please fill out the paper form at the senior front end web developer then have a seat in the Outpatient Blood Draw Lab (Pathology) waiting area. Hours Thursday 07:00 AM - 05:30 PM Thursday 07:00 AM - 05:30 PM Thursday 07:00 AM - 05:30 PM 07:00 AM - 05:30 PM Thursday 07:00 AM - 05:30 PM [facility] ER [phone] [place] [address] Follow the overhead sign to [place]: Radiology/X-ray & Lab (right arrow). Check in for testing at the Radiology & Lab Wind Turbine Mechanic window. Hours Thursday 10:00 AM - 02:00 PM Thursday 08:00 AM - 07:30 PM Thursday 08:00 AM - 07:30 PM Thursday 08:00 AM - 07:30 PM 08:00 AM - 07:30 PM Thursday 08:00 AM - 07:30 PM Thursday 08:00 AM - 04:00 PM [facility] Lab [phone] [place] [address] [place] at the senior front end web developer and you will be directed to the waiting area. Laboratory staff will takeyou back to the laboratory. Hours Thursday 10:00 AM - 02:00 PM Thursday 07:30 AM - 07:30 PM Thursday 07:30 AM - 07:30 PM Thursday 07:30 AM - 07:30 PM 07:30 AM - 07:30 PM Thursday 07:15 AM - 07:45 PM Thursday 08:00 AM - 04:00 PM [facility] Lab [phone] [place] [address] Enter through the front door and continue [...] PM Thursday 08:00 AM - 04:00 PM [facility] Lab [phone] [place], [place] [id number] The [place] [facility] is located on the first [...] PM Thursday 07:30 AM - 05:00 PM [facility] Lab [phone] [place] [address] The [place] is located on the first floor, room A1-3829. Enter through the Emergency doors and follow the signs to Medical Offices , making a right turn. [place] at the Registration 1A desk at the end of the hallway, then proceed to the Laboratory on the right. Hours Thursday 07:30 AM - 05:00 PM Thursday 07:30 AM - 05:00 PM Thursday 07:30 AM - 05:00 PM 07:30 AM - 05:00 PM Thursday 07:30 AM - 05:00 PM [facility] Lab [phone] [place], [place] [address] The [place] [facility] is located on the first [...] AM - 05:00 PM documented in this [id number] History of Present illness Narrative* Dejuan Lechuga [...] no previous surgical history on file. Diagnostics: [facility] laboratory/diagnostics reviewed and Outside laboratory/diagnostics reviewed Review [...] of . Alejabrandy Rolon documented in this [id number] History of Present illness Narrative* Theo Burks MD - 12/15/2022 4:20 PM EDT [facility] Telemedicine Visit CC: Chief Complaint Patient presents with Fall HPI: Patient is a 37 year old cordero with a history of cirrhosis , autoimmune hemolytic anemia who presentsfor the below. 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 OBJECTIVE: Sounds ewll, no acute distress Breathing comfrotably on room air ASSESSMENT AND PLAN: 1. Rib pain Orders & Meds Signed During This Encounter X-ray Ribs Left Unilateral (Routine) lidocaine (LIDODERM) 5 % patch Documentation: Mode: Telephone Patient Patient Work Phone: Patient Cell Preferred phone: [phone] Consent: I confirmed patient understanding of the [...] Burks MD Family Medicine documented in this [id number] Telephone encounter Note* Telephone Encounter - Aleja Rolon - 12/15/2022 9:14 AM EDT Called patient and made appointment with tomorrow [id number] Miscellaneous Notes* Telephone Encounter - Aleja Rolon - 12/15/2022 9:14 AM EDT Called patient and made appointment with tomorrow documented in this [id number] History of Present illness Narrative* Marcello Ibanez [...] Risk protocol implemented: No documented in this [id number] History of Present illness Narrative* Haley Gary [...] Risk protocol implemented: No documented in this [id number] History of Present illness Narrative* Haley Gary [...] Risk protocol implemented: No documented in this [id number] Telephone encounter Note* Telephone Encounter - Tanika [...] and will need rescheduled. Tanika Arias RN [facility] Work Phone: [phone]) 681-431501-14-2023 Miscellaneous Notes* Telephone Encounter - Tanika Arias [...] rescheduled. Tanika Arias RN documented in this [id number] History of Present illness Narrative* Theo Burks MD - 08/29/2022 9:20 AM EST [facility] Telemedicine Visit CC: Chief Complaint Patient presents [...] surgical history personally reviewed and updated in [employer]. OBJECTIVE: There were no vitals taken for this visit. Gen: Sounds well, no acute distress Resp: breathing comfortably ASSESSMENT AND PLAN: 1. Cellulitis, unspecified cellulitis site 2. Muscle soreness Orders & Meds Signed During This Encounter [facility] Documentation: Mode: Telephone Patient Patient Work Phone: Patient Cell Preferred phone: [phone] Consent: I confirmed patient understanding of the [...] Burks MD Family Medicine documented in this [id number] Instructions* Patient Instructions* Theo Burks MD - 08/25/2022 2:16 PM EST Continue antibiotics for another 7 days Topical antibiotic ointment for left foot Follow up on Thursday Refilled zofran (anti-nausea medication) documented in this [id number] History of Present illness Narrative* Theo Burks MD - 08/25/2022 1:31 PM EST Images from the original note were not included. [facility] Family Medicine Office Visit CC: Chief Complaint [...] surgical history personally reviewed and updated in [facility]. OBJECTIVE: BP 132/65 (BP Location: left [...] Burks MD Family Medicine documented in this [id number] History of Present illness Narrative* Abbey Alvarez [...] hepatology clinic for EtOH cirrhosis. Admitted to [facility] ICU for acute alcoholic hepatitis (MDF [...] B27 positive) 2003 Followed with Rheum at [facility] Open fracture of other and [...] [facility] 08/25/22, 10:44 AM * RositaMaura guzman - 08/25/2022 10:40 AM EST Patient was identified by name and date of . Maura Hilton Patient at risk for falls:No Falls Risk protocol implemented: No documented in this [id number] History of Present illness Narrative* Abbey Alvarez [...] hepatology clinic for EtOH cirrhosis. Admitted to [facility] ICU for acute alcoholic hepatitis (MDF [...] B27 positive) 2003 Followed with Rheum at [facility] Open fracture of other and [...] Risk protocol implemented: No documented in this [id number] History of Present illness Narrative* Abbey Alvarez [...] hepatology clinic for EtOH cirrhosis. Admitted to [facility] ICU for acute alcoholic hepatitis (MDF [...] B27 positive) 2003 Followed with Rheum at [facility] Open fracture of other and [...] Risk protocol implemented: No documented in this [id number] Note* Addendum Note - Tanvir Black MD - 08/21/2022 8:52 PM ESTAddended by: TANVIR BLACK on: 08/21/2022 08:52 PM Modules accepted: Orders [id number] Miscellaneous Notes* Addendum Note - Tanvir Black MD - 08/21/2022 8:52 PM ESTAddended by: TANVIR BLACK on: 08/21/2022 08:52 PM Modules accepted: Orders documented in this [id number] History of Present illness Narrative* Tanvir Black MD - 08/16/2022 11:07 AM EST Images from the original note were not included. Reviewed urine C&S. Urine growing klebsiella pneumoniae, with intermediate sensitivity to Macrobid. Culture Positive Culture Report Abnormal >100,000 CFU/ml Klebsiella pneumoniae [place] [facility] [place]ibility Klebsiella pneumoniae BHAVIN Amoxicillin + Clavulanate [...] aware Phone numbers Preferred Tanvir Black MD [facility] [phone] Hematology/Oncology 08/16/2022 . documented in this [id number] Hospital Discharge instructions* Discharge Instructions* Dante French MD - 08/15/2022 3:08 PM EST EMERGENCY DEPARTMENT FOLLOW-UP: Please see your Primary Care Physician at next available appointment for follow up. Please call today or tomorrow to make an appointment. Residents of [facility] may apply for discounts available only to residents of this [facility] by contacting the Eligibility Call Center at [phone]. If you do not have a primary physician please call [phone] for guidance on finding a [facility] provider. PLEASE NOTE: If you are followed [...] during this visit: None documented in this [id number] History of Present illness Narrative* Nenita Franco MD - 08/15/2022 2:29 PM EST Chief Complaint Patient presents with Leg/thigh symptoms Right leg has a lot on fluids. HPI. R lower leg swollen /red x 1 week \\alcoholic ascites Had US yesterday negative Getting worse [...] B27 positive) 2003 Followed with Rheum at [facility] Open fracture of other and [...] of . Katie Paniagua documented in this [id number] History of Present illness Narrative* Tanvir Black [...] B27 positive) 2003 Followed with Rheum at [facility] Open fracture of other and [...] Provider Department Center 08/19/2022 8:30 AM [facility] OP ULTRASOUND 2 [facility] US [facility] Radiolog 08/19/2022 1:45 PM [facility] OP ULTRASOUND 2 [facility] US [facility] Radiolog 08/28/2022 10:30 AM Saskia Madison APRN-[facility] 09/19/2022 11:00 AM Saskia Madison APRN-CNP [facility] 11/13/2022 11:30 AM [facility]/13/2022 12:00 PM ONC NURSE [facility] Tanvir Black MD Hematology/Oncology 08/14/22 4:09 PM * Jojo Garcia - 08/14/2022 11:52 AM EST .Patient was identified by name and date of . Jojo Garcia .Patient at risk for falls:No Falls Risk protocol implemented: No documented in this [id number] History of Present illness Narrative* Emily Dunn, RN - 08/14/2022 2:08 PM EST During this visit the vaccine(s) was: Administered Obtained informed verbal consent from patient/parent/patient novelties sales representative for immunization(s) as ordered, questionnaire completed and VIS educational handouts reviewed with patient/parent/patient novelties sales representative who denies contraindications and verbalizes understanding of indication, potential side effect and actions to be taken if side effects occur. Double identification of patient completed with patient/parent/patient novelties sales representative using name and prior to [...] B27 positive) 2003 Followed with Rheum at [facility] Open fracture of other and [...] 1:54 PM GI clinic documented in this [id number] History of Present illness Narrative* Emily Dunn RN - 08/14/2022 2:08 PM EST During this visit the vaccine(s) was: Administered Obtained informed verbal consent from patient/parent/patient novelties sales representative for immunization(s) as ordered, questionnaire completed and VIS educational handouts reviewed with patient/parent/patient novelties sales representative who denies contraindications and verbalizes understanding of indication, potential side effect and actions to be taken if side effects occur. Double identification of patient completed with patient/parent/patient novelties sales representative using name and prior to [...] B27 positive) 2003 Followed with Rheum at [facility] Open fracture of other and [...] 8:19 AM GI clinic documented in this [id number] History of Present illness Narrative* Emily Dunn RN - 08/14/2022 2:08 PM EST During this visit the vaccine(s) was: Administered Obtained informed verbal consent from patient/parent/patient novelties sales representative for immunization(s) as ordered, questionnaire completed and VIS educational handouts reviewed with patient/parent/patient novelties sales representative who denies contraindications and verbalizes understanding of indication, potential side effect and actions to be taken if side effects occur. Double identification of patient completed with patient/parent/patient novelties sales representative using name and prior to administration, and patient tolerated immunization(s) administration without incident. * Maura Canela - 08/14/2022 1:08 PM EST Patient was identified by name and date of . Maura WilhelmoPatient at risk for falls:No Falls Risk protocol implemented: No * Saskia Madison APRN-[employer] - 08/14/2022 1:00 PM EST Images from [...] B27 positive) 2003 Followed with Rheum at [facility] Open fracture of other and [...] likely 2/2 hemolytic anemia) -discuss with transplant germination worker, Dr. Gary and arrange for f/u in [...] 8:19 AM GI clinic documented in this [id number] History of Present illness Narrative* Jasmyne Grimaldo [...] clinic. Jasmyne Grimaldo RN documented in this [id number] Instructions* Patient Instructions* Emily Dunn RN - [...] these numbers to schedule your Upper Endoscopy. [facility] [address], [place] [address] West Entrance Thursday-Thursday 8A-4P [facility] [address], [place] [id number] Thursday-Thursday 8A-4P [facility]. [address], [place] [id number] Thursday-Thursday 8A-4P Centralized GI Procedure scheduling: UPPER [...] hours, please call to speak to the [facility] nurse store person. If you need to cancel this appointment, please call , at least 48 hours before your appointment time. For additional health or procedure preparation information call the [facility] line at . The [facility] line is open 24 hours a day including weekends and holidays. PLEASE BRING IN YOUR INSURANCE CARD AND MEDICATIONS OR LIST OF CURRENT MEDICATIONS. PLEASE LEAVE JEWELRY AT HOME AND DO NOT WEAR HEAVY FRAGRANCE OR NAIL SYRIAN WE MAKE EVERY ATTEMPT TO MAINTAIN OUR [...] any problems or questions, please call the [facility] line at [phone]. documented in this [id number] Instructions* Patient Instructions* Emily Dunn RN - [...] these numbers to schedule your Upper Endoscopy. [facility] [address] [phone] [facility] Thursday-Thursday 8A-4P [facility] [address], [place] [phone] Thursday-Thursday 8A-4P [facility]. [address], [place] [phone] Thursday-Thursday 8A-4P Centralized GI Procedure scheduling: UPPER [...] hours, please call to speak to the [facility] nurse store person. If you need to cancel this appointment, please call , at least 48 hours before your appointment time. For additional health or procedure preparation information call the [facility] line at . The [facility] line is open 24 hours a day including weekends and holidays. PLEASE BRING IN YOUR INSURANCE CARD AND MEDICATIONS OR LIST OF CURRENT MEDICATIONS. PLEASE LEAVE JEWELRY AT HOME AND DO NOT WEAR HEAVY FRAGRANCE OR NAIL SYRIAN WE MAKE EVERY ATTEMPT TO MAINTAIN OUR [...] any problems or questions, please call the [facility] line at [phone]. documented in this [id number] History of Present illness Narrative* Tanvir Black [...] B27 positive) 2003 Followed with Rheum at [facility] Open fracture of other and [...] Center 08/14/2022 11:30 AM Tanvir Black MD [facility] 08/14/2022 12:00 PM ONC NURSE [facility] 08/14/2022 1:00 PM Saskia Madison APRN-[facility] Tanvir Black MD Hematology/Oncology 05/06/22 4:11 [...] 100 %. Sally Chavez documented in this [id number] History of Present illness Narrative* Leslie Canela [...] results. Leslie Canela RN documented in this [id number] History of Present illness Narrative* Rosita Le RN - 03/13/2022 12:29 PM EDT Patient was identified by name and date of . 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 Blood obtained via venipuncture from RAC xpogf86R 3/4in butterfly needle. Blood specimen sent to lab. Pt tolerated procedure well. Pt verbalized follow up instructions and discharged home in stable condition. Rosita Le RN documented in this [id number] History of Present illness Narrative* Tanvir Black [...] B27 positive) 2003 Followed with Rheum at [facility] Open fracture of other and [...] to oncologist closer to his home in [facility]. 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 Jojo Garcia .Patient at risk for falls:Yes Falls Risk protocol implemented: No documented in this [id number] Hospital Discharge instructions Patient Education 02/17/2022 16:25:10 [...] care provider. Do not drink alcohol. Take llee-vgu-otswcdg and prescription medicines only as told by [...] 08/24/2006 Document Revised: 05/26/2019 Document Reviewed: 05/26/2019 [employer] Patient Education 2020 [employer] 02/17/2022 16:25:10 Cellulitis, Adult Cellulitis, Adult [...] Follow these instructions at home: Medicines Take wjpi-jnp-sblulzq and prescription medicines only as told by [...] such as antibiotic medicines or antihistamines. Take ofig-znk-mapckwj and prescription medicines only as told by [...] 06/03/2006 Document Revised: 01/13/2019 Document Reviewed: 01/13/2019 [employer] Patient Education 2020 [employer] 02/17/2022 16:25:10 Hypokalemia Hypokalemia Hypokalemia means that [...] hospital. Follow these instructions at home: Take naaj-xxx-cyytqij and prescription medicines only as told by [...] cantaloupe, kiwi, oranges, tomatoes, asparagus, and potatoes. ?Jayess juice. ?Tomato juice. ?Red meats. ?Yogurt. Keep [...] 08/24/2006 Document Revised: 04/06/2019 Document Reviewed: 04/06/2019 [employer] Patient Education 2020 [employer] 02/17/2022 16:25:10 Peripheral Edema Peripheral Edema Peripheral [...] by your health care provider. Medicines Take mcbm-bni-nwwbdev and prescription medicines only as told by [...] 10/01/2005 Document Revised: 05/18/2019 Document Reviewed: 05/18/2019 [employer] Patient Education 2020 [employer] Follow Up Care 02/17/2022 12:28:34 With:Milagros Barakat Address:Unknown When:02/20/2022 15:52:54 Comments:Return to the emergency room if your pain gets worse, fever, swelling gets worse or any new symptoms With:Colby Link Address: [facility] [address], [facility] [address] [place] [address]- Business (1) When:Within 3 Day(s) [facility]06-13-2022 Evaluation + Plan noteExtracted from: Title:ED Note [...] Charcoal 02/17/22 * Blood Culture Charcoal 02/17/22 [facility]06-07-2022 Telephone encounter Note* Telephone Encounter - Kulwinder [...] Kulwinder Dozier PharmD, PharmD. Oncology Specialty Pharmacist [id number] Date: 02/11/22 [id number] Miscellaneous Notes* Telephone Encounter - Kulwinder Dozier [...] Kulwinder Dozier PharmD, PharmD. Oncology Specialty Pharmacist [id number] Date: 02/11/22 * Telephone Encounter - Kulwinder Dozier PharmD - 02/11/2022 12:39 PM EDT Images from the original note were not included. [facility] Referral [facility] received a prescription for MMF (Cellcept) for this patient on 02/11/2022. [facility] has been contacted to initiate a Prior Authorization for this medication. This is an immunomodulatory agent Patient Information: iWll Ralph is a 36 year old male [id number] [facility] [address] Insurance on file: [employer] COMMERCIAL ID: [id number] BIN: [id number] PCN: -- Group: [id number] Specialty Medication Medication and dosing: mycophenolate (CELLCEPT) 500 MG tablet- Take 2 tablets by mouth 2 times daily. 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 [...] pharmacist once medication is approved. Questions for [facility] may be directed to [phone] option 3. Thank you for the referral, Kulwinder Dozier PharmD Oncology Specialty Pharmacist [phone] [id number] documented in this [id number] Telephone encounter Note* Telephone Encounter - Kulwinder Dozier PharmD - 02/11/2022 12:39 PM EDT Images from the original note were not included. [facility] Referral [facility] received a prescription for MMF (Cellcept) for this patient on 02/11/2022. [facility] has been contacted to initiate a Prior Authorization for this medication. This is an immunomodulatory agent Patient Information: Will Ralph is a 36 year old male [id number] [facility] [address] Insurance on file: [employer] COMMER[employer] ID: [id number] BIN: [id number] PCN: -- Group: [id number] Specialty Medication Medication and dosing: mycophenolate (CELLCEPT) 500 MG tablet- Take 2 tablets by mouth 2 times daily. 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 [...] pharmacist once medication is approved. Questions for [facility] may be directed to [phone] option 3. Thank you for the referral, Kulwinder Dozier PharmD Oncology Specialty Pharmacist [phone] [id number] History of Present illness Narrative* Cyn Hopper RN - 02/11/2022 11:45 AM EDT Patient was identified by name and date of . 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 Blood obtained via venipuncture from RAC using 23G 3/4in butterfly needle. Blood specimen sent to lab. Pt tolerated procedure well, dressing applied. AVS provided and reviewed. Pt verbalized follow up instructions and discharged home in stable condition. Cyn Hopper RN documented in this [id number] Miscellaneous Notes* Telephone Encounter - Liseth Santana [...] patient 2. [place] [id number] (Pharmacy Prior Authorization Pool) Patient advised to follow up with provider's office if they have any further questions or if no answer after 3 business days. Providers office is to contact patient to advise of medication changes/next steps documented in this [id number] Miscellaneous Notes* Care Plan Note - Rosa [...] achieve functional outcome goals 01/17/2022 1654 by Rsoa Mensah RN Outcome: [...] RNF BARRIERS TO PLAN OF CARE: None CARPENTER FOREMAN IRENA Callahan RN DAY SHIFT RN Alvaro [...] was yellow x 1 day. While at [facility], patient was HDS, however noted with significant bru ising and edema of LUE. Reportedly, trauma surgery was consulted at [facility] and there was initially concern for compartment syndrome and fasciotomy was considered, but ultimately did not occur at the time. The trauma attending Dr. Du recommended orthopedic consultation upon arrival to the [facility] MICU. While at [facility] labs significant for indirect hyperbilirubinemia, and acute macrocytic anemia 6.9 requiring 1u pRBC and [address] Abd/Pelvis W/ Contrast showed liver cirrhosis and steatosis without CBD dilation. Received morphine, ceftriaxone, protonix, thiamine. Started on NS for rhabdo. Patient transferred to [facility] for tertiary center care. While in the [facility] MICU, Ortho following - request MR [...] Transfer to F soon- weaning precidex off Sw/geriatric case manager for dc concerns Problem: Safety: [...] OF CARE: BARRIERS TO PLAN OF CARE: CARPENTER FOREMAN RN: Bharat Callahan DAY SHIFT RN: Meli Keane * 1:1 Interaction - Keo Gaona MD - 01/14/2022 7:42 AM EDT Images from the original note were not included. SECLUSION/RESTRAINTS PROVIDER LVOF-DT-VING EVALUATION NOTE Will Ralph was evaluated on [...] additional home-going needs (PRN) Note: Family updates Sw/geriatric case manager as needed Problem: Safety: Goal: [...] none BARRIERS TO PLAN OF CARE: none CARPENTER FOREMAN RN Jessee Unger RN DAY SHIFT RN Quinn Graham RN * 1:1 Interaction - Hannah Leggett MD - 01/13/2022 4:30 AM EDT Images from the original note were not included. SECLUSION/RESTRAINTS PROVIDER AWOI-IB-NWQK EVALUATION NOTE Will Ralph was evaluated on [...] None BARRIERS TO PLAN OF CARE: None CARPENTER FOREMAN RN : Elsa Jenkins RN DAY SHIFT [...] original note were not included. SECLUSION/RESTRAINTS PROVIDER JGAR-PK-FVIM EVALUATION NOTE Will Ralph was evaluated on [...] none BARRIERS TO PLAN OF CARE: none CARPENTER FOREMAN IRENA Canales DAY SHIFT IRENA Childers * 1:1 Interaction - Hannah Leggett MD - 01/11/2022 1:39 AM EDT Images from the original note were not included. SECLUSION/RESTRAINTS PROVIDER HYKN-WB-EUWR EVALUATION NOTE Will Ralph was evaluated on [...] remain still for MRI. Dr. Curry aware. CARPENTER FOREMAN RN Quinn Jameson DAY SHIFT IRENA Childers * 1:1 Interaction - Abhinav De La Vega DO - 01/10/2022 2:31 PM EDT SECLUSION/RESTRAINTS PROVIDER QHNE-SA-RCQL EVALUATION NOTE Will Ralph was evaluated on [...] original note were not included. SECLUSION/RESTRAINTS PROVIDER ARJL-PF-HZQF EVALUATION NOTE Will Ralph was evaluated on [...] were discussed with the patient and/or legal novelties sales representative. The risks, benefits and alternatives were reviewed. Questions regarding blood transfusions were answered. The patient /or the patient s legal novelties sales representative agree with the plan for [...] - 01/09/2022 9:02 AM EDT SECLUSION/RESTRAINTS PROVIDER DPIY-UI-ATIS EVALUATION NOTE Will Ralph was evaluated on [...] original note were not included. SECLUSION/RESTRAINTS PROVIDER CATX-JR-SZIA EVALUATION NOTE Will Ralph was evaluated on [...] - 01/08/2022 10:46 PM EDT SECLUSION/RESTRAINTS PROVIDER FKRN-ZC-IEOC EVALUATION NOTE Will Ralph was evaluated on [...] of harm to self documented in this [id number] Hospital course Narrative* Afua Umanzor MD - 01/17/2022 3:31 PM EDT Images from the original note were not included. DISCHARGE SUMMARY [address] [address] Will Ralph Date of : 1985 36 [...] Referral Type: Service Level Authorization Referral Location: [facility] Number of Visits Requested: 3 Expiration Date: 01/17/23 HEMATOLOGY SERVICE REQUEST Referral Priority: Routine Referral Type: Service Level Authorization Referral Location: [facility] Number of Visits Requested: 3 Expiration Date: 01/17/23 LIVER SERVICE REQUEST Referral Priority: Routine Referral Type: Service Level Authorization Referral Location: [facility] Number of Visits Requested: 3 Expiration Date: 01/17/23 Future Appointments Date Time Provider Department Center 01/20/2022 11:00 AM Abbey Alvarez MD Liver [facility] 01/23/2022 11:45 AM Ronen Welch MD [facility] ORTHO [facility] 02/11/2022 10:00 AM Tanvir Black MD [facility] Condition at Discharge Improved Activity No restrictions [...] bilirubin may falsely lower creatinine 169 63 328 11 0042 6.4 2.6 2.10 11.1 Comment: Elevated bilirubin [...] followed by pain. He was seen at [facility] and transferred to ICU He was found [...] he will get assistance from rehab in [place] for alcohol abuse. On the day of discharge, patient was stable. Left arm swelling was improving. He has good peripheral pulses in the left arm. He is alert and oriented x3. CVS - systolic murmur, lungs - clear to auscultation, abdomen - soft, nontender, STORY READER - alert, moving all extremities. Current Discharge [...] follow-up Afua umanzor MD documented in this [id number] History of Present illness Narrative* Kennedi Best [...] resources. Pt declines assistance. RAI Claudio, JOSH-S [phone] * Afua Umanzor MD - 01/16/2022 8:18 AM EDT Images from the original note were not included. GENERAL MEDICAL FLOOR DAILY PROGRESS NOTE Will Ralph [id number] 01/16/2022 Length of stay: 8 day(s) SUBJECTIVE: [...] ATTENDING NOTE LEON SANTANA MD - PIN [id number] I saw and evaluated the patient. I [...] Sleep Medicine [facility] * Reanna Doyle [facility] - 01/15/2022 9:24 AM EDT [...] been updated per consult agreement. REANNA DOYLE [facility] Department of Pharmacy Services * Keo Gaona MD - 01/15/2022 7:51 AM EDT Images from the original note were not included. [facility] Medical Intensive Care Unit Critical Care Progress Note Will Ralph 36 year old [id number] lbs MRN/Room: [id number]/CP3-303/1 Length of stay: 7 day(s) Summary 36M [...] was yellow x 1 day. While at [facility], patient was HDS, however noted with significant bru ising and edema of LUE. Reportedly, trauma surgery was consulted at [facility] and there was initially concern for compartment syndrome and fasciotomy was considered, but ultimately did not occur at the time. The trauma attending Dr. Du recommended orthopedic consultation upon arrival to the [facility] MICU. While at [facility] labs significant for indirect hyperbilirubinemia, and acute macrocytic anemia 6.9 requiring 1u pRBC and [address] Abd/Pelvis W/ Contrast showed liver cirrhosis and steatosis without CBD dilation. Received morphine, ceftriaxone, protonix, thiamine. Started on NS for rhabdo. Patient transferred to [facility] for tertiary center care. While in the [facility] MICU, Ortho following - request MR [...] improving with IV hydration Hyperbilirubinemia worsening since [facility]. DDx favors hemolysis - could be from [...] No overt GIB. 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 MICU ATTENDING NOTE LEON SANTANA MD - PIN [id number] I saw and evaluated the patient. I [...] medical issues requiring critical care management include: STORY READER FAILURE. HEPATIC FAILURE . Additional findings and [...] from the original note were not included. [facility] Medical Intensive Care Unit Critical Care Progress Note Will Ralph 36 year old 136.685 lbs MRN/Room: [id number]/CP3-303/1 Length of stay: 6 day(s) Summary 36M [...] was yellow x 1 day. While at [facility], patient was HDS, however noted with significant bru ising and edema of LUE. Reportedly, trauma surgery was consulted at [facility] and there was initially concern for compartment syndrome and fasciotomy was considered, but ultimately did not occur at the time. The trauma attending Dr. Du recommended orthopedic consultation upon arrival to the [facility] MICU. While at [facility] labs significant for indirect hyperbilirubinemia, and acute macrocytic anemia 6.9 requiring 1u pRBC and [address] Abd/Pelvis W/ Contrast showed liver cirrhosis and steatosis without CBD dilation. Received morphine, ceftriaxone, protonix, thiamine. Started on NS for rhabdo. Patient transferred to [facility] for tertiary center care. While in the [facility] MICU, Ortho following - request MR Zuniga [...] improving with IV hydration Hyperbilirubinemia worsening since [place]. 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 [facility] Medical Intensive Care Unit Critical Care Progress Note Will Ralph 36 year old [id number] lbs MRN/Room: [id number]/CP3-303/1 Length of stay: 5 day(s) Summary 36M [...] was yellow x 1 day. While at [facility], patient was HDS, however noted with significant bru ising and edema of LUE. Reportedly, trauma surgery was consulted at [facility] and there was initially concern for compartment syndrome and fasciotomy was considered, but ultimately did not occur at the time. The trauma attending Dr. Du recommended orthopedic consultation upon arrival to the [facility] MICU. While at [facility] labs significant for indirect hyperbilirubinemia, and acute macrocytic anemia 6.9 requiring 1u pRBC and [address] Abd/Pelvis W/ Contrast showed liver cirrhosis and steatosis without CBD dilation. Received morphine, ceftriaxone, protonix, thiamine. Started on NS for rhabdo. Patient transferred to [facility] for tertiary center care. While in the [facility] MICU, Ortho following - request MR [...] improving with IV hydration Hyperbilirubinemia worsening since [place]. 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 MICU ATTENDING NOTE LEON SANTANA MD - PIN [id number] I saw and evaluated the patient. I [...] management include: ACUTE BLOOD LOSS ANEMIA and STORY READER FAILURE. HEPATIC FAILURE . Additional findings and [...] pt to attempt to address. Codi Thurman [facility] Care Coordination Department 10:59 AM Addendum: SW met with pt at bedside. Pt sleeping upon SW entering room. Pt restrained, with mits. SW did not awake to name being called several times. SW will follow up with pt as appropriate to address. Codi Thurman [facility] Care Coordination Department * Elizabeth Unger [...] ATTENDING NOTE LEON SANTANA MD - PIN [id number] I saw and evaluated the patient. I [...] management include: ACUTE BLOOD LOSS ANEMIA and STORY READER FAILURE, HEPATIC FAILURE. Additional findings and notation: [...] from the original note were not included. [facility] Intensive Care Unit Critical Care Progress Note Will Ralph 36 year old 149.82321 lbs MRN/Room: [id number]/CP3-303/1 Length of stay: 4 day(s) Summary 36M [...] was yellow x 1 day. While at [facility], patient was HDS, however noted with significant bru ising and edema of LUE. Reportedly, trauma surgery was consulted at [facility] and there was initially concern for compartment syndrome and fasciotomy was considered, but ultimately did not occur at the time. The trauma attending Dr. Du recommended orthopedic consultation upon arrival to the [facility] MICU. While at [facility] labs significant for indirect hyperbilirubinemia, and acute macrocytic anemia 6.9 requiring 1u pRBC and [address] Abd/Pelvis W/ Contrast showed liver cirrhosis and steatosis without CBD dilation. Received morphine, ceftriaxone, protonix, thiamine. Started on NS for rhabdo. Patient transferred to [facility] for tertiary center care. 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 [facility] Intensive Care Unit Critical Care Progress Note Will Ralph 36 year old 151.84608 lbs MRN/Room: [id number]/CP3-139/1 Length of stay: 3 day(s) Summary 36M [...] was yellow x 1 day. While at [facility], patient was HDS, however noted with significant bru ising and edema of LUE. Reportedly, trauma surgery was consulted at [facility] and there was initially concern for compartment syndrome and fasciotomy was considered, but ultimately did not occur at the time. The trauma attending Dr. Du recommended orthopedic consultation upon arrival to the [facility] MICU. While at [facility] labs significant for indirect hyperbilirubinemia, and acute macrocytic anemia 6.9 requiring 1u pRBC and [address] Abd/Pelvis W/ Contrast showed liver cirrhosis and steatosis without CBD dilation. Received morphine, ceftriaxone, protonix, thiamine. Started on NS for rhabdo. Patient transferred to [facility] for tertiary center care. While in the [facility] MICU, Ortho following - request MR [...] No overt GIB. 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 I [...] and 1u FFP and was transfered to [facility]ICU for further management. On (01/08) PM [...] Candido Lerner MD Hematology- Oncology PGY-V Pager [phone] Associated attestation - Rd Weaver MD - [...] adenomyosis. Gallbladder sludge.No pericholecystic fluid or sonographic Galeaon's sign to suggest acute cholecystitis. 3. Normal [...] with GI attending, Dr. Haley Gary MD ([id number]) and Ulysses Solomon MD. Primary team updated via [employer] secure chat. We will sign off but please don't hesitate to reach out with questions or concerns. Abbey Alvarez MD Gastroenterology Fellow Personal Pager [phone] GI Consult Pager (nights and weekends) [phone] * Francisco Marino MD - 01/10/2022 9:13 AM EDT MICU ATTENDING NOTE FRANCISCO MARINO MD - PIN [id number] I saw and evaluated the patient. I [...] ACUTE BLOOD LOSS ANEMIA, HEPATIC FAILURE, and STORY READER FAILURE. Additional findings and notation: Will Ralph is a 36 year old male with PMH of EtOH dependence who presented with 2 days of L arm pain to [facility] ED. 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 [facility] Medical Intensive Care Unit Critical Care Progress Note Will Ralph 36 year old [id number] lbs MRN/Room: [id number]/CP3-139/1 Length of stay: 2 day(s) Summary 36M [...] was yellow x 1 day. While at [facility], patient was HDS, however noted with significant bru ising and edema of LUE. Reportedly, trauma surgery was consulted at [facility] and there was initially concern for compartment syndrome and fasciotomy was considered, but ultimately did not occur at the time. The trauma attending Dr. Du recommended orthopedic consultation upon arrival to the [facility] MICU. While at [facility] labs significant for indirect hyperbilirubinemia, and acute macrocytic anemia 6.9 requiring 1u pRBC and [address] Abd/Pelvis W/ Contrast showed liver cirrhosis and steatosis without CBD dilation. Received morphine, ceftriaxone, protonix, thiamine. Started on NS for rhabdo. Patient transferred to [facility] for tertiary center care. 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 s/p 1u pRBC from [place], did not increment appropriately - only 6.9 [...] (deescalation of antibiotics): Ceftriaxone Social- Dad Rich [phone] and mom Code Status: Full Code Dispo: MICU Plan is preliminary until discussed with attending Abhinav De La Vega DO PGY-2 [phone] (click to text page) * Bang Jameson [...] ATTENDING NOTE FRANCISCO MARINO MD - PIN [id number] I saw and evaluated the patient. I [...] ACUTE BLOOD LOSS ANEMIA, HEPATIC FAILURE, and STORY READER FAILURE. Additional findings and notation: Will Ralph is a 36 year old male with PMH of EtOH dependence who presented with 2 days of L arm pain to [facility] ED. 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 Pt is currently confused, restrained and unable to participate in conversation at this time. SW will follow up with pt to address as appropriate. SARAH Kelley Care Coordination Department * Ivy Chua MD - 01/09/2022 7:34 AM EDT Images from the original note were not included. [facility] Medical Intensive Care Unit Critical Care Progress Note Will Ralph 36 year old 149.6925 lbs MRN/Room: [id number]/3-139/1 Length of stay: 1 day(s) Summary 36M [...] skin was yellow x 1 day. At [facility], pt was HDS. Noted with significant bruising and edema of LUE. Reportedly, trauma surgery was consulted at [facility] and there was initially concern for compartment syndrome and fasciotomy was considered, but ultimately did not occur at the time. The trauma attending Dr. Du recommended orthopedic consultation upon arrival to the [facility] MICU. Labs significantfor indirect hyperbilirubinemia, acute macrocytic anemia 6.9. CT abd/pel with contrast showed livercirrhosis and steatosis; no CBD dilation. Received morphine, ceftriaxone, protonix, thiamine. Received 1u pRBC and 1u FFP at [facility]. Started on NS for rhabdo. Transferred to [facility] for tertiary center care. Ortho following [...] for overt GIB -s/p 1u pRBC from [facility], did not increment appropriately - only 6.9 [...] not reliable given recent pRBC infusion at [facility] - Large bore PIVs -transfuse Hb <7 [...] (deescalation of antibiotics): ctx Social- dad Rich [phone] and mom Code Status: Full Code Dispo: MICU Staffed with attending crisis specialist Dr. Marino. Ivy Chua MD Internal [...] n/a BARRIERS TO PLAN OF CARE: n/a CARPENTER FOREMAN RN DAY SHIFT RN Chao * Loreta Macedo - 01/08/2022 1:33 PM EDT [facility] Services provided for: Patient and Family Services initiated by: Staff Refractory Furnace Designer Reason for services: Initial visit Narrative: Refractory Furnace Designer knocked and entered patient's room to introduce self and share availability of spiritual care. Patient was sitting up in bed, awake and alert, visiting with his parents. Patient was polite and appreciative of visit but stated he had no spiritual care needs at this time. Interventions: Introduction of service Outcome: Patient aware of it infrastructure project manager availability Plan of Care: Follow-up not anticipated Loreta Macedo MDiv Staff Refractory Furnace Designer, (she/her/hers) Ext: [phone] Pager: [phone] documented in this [id number] Consult note* Keith Bolivar OT - 01/16/2022 [...] Dep Max Mod Min CG CS DS OK I Set-Up Cues Comment Feeding x Meal [...] With Patients permission ordered no equipment via Planwise Order. If any questions contact [facility] DME Provider at [phone]. 6 Clicks Daily Activity OT 01/16/2022 Help [...] Guard Assist/Supervision 4 - Non = Modified [place]/Independent ASSESSMENT: ASSESSMENT: Will Ralph is performing functional [...] NA = Not Assessed, I = Independent, OK = Modified Independent, Sup = Supervised, Set [...] Dep Max Mod Min CG CS DS OK I Comment Roll to right sidelying x [...] With Patients permission ordered no equipment via Planwise Order. If any questions contact [facility] DME Provider at [phone]. 6 Clicks Basic Mobility PT 01/16/2022 Difficulty [...] NA = Not Assessed, I = Independent, OK = Modified Independent, Sup = Supervised, Set [...] Dep Max Mod Min CG CS DS OK I Comment Rolling x Supine<>sit x Sitting trial x Transfer x Sit<>stand x Without an assistive device. Standing trial x x2 minutes in unsupported static standing. Ambulation x 400 feet without an assistive device. Pt demonstrated step-through gait pattern with improved steadiness with continued practice. Stairs x 12 stairs with unilateral rail. Pt negotiated stairs with a elsx-xkqb-kjyq pattern. Education: Instructed pt in roles of [...] Guard Assist/Supervision 4 - Non = Modified [place]/Independent Pt resting in recliner at end of [...] Clinical Specialist in Neurologic Physical Therapy Pager: [phone] AAROM = active assisted range of motion [...] % Nutrition Focused Physical Exam Muscle loss: [place] region: mild depression Clavicle region: visible but [...] 01/13 1440 ml Est needs: current wt 9514-7605 kcal/d 30-35 kcal/kg 95 g pro/d 1.5 [...] mentation allows Mehreen Raza MS RD LD [facility] Pager [phone] () Dietitian store person (7a-7p) pager: [phone] * Chioma Butler OT - 01/14/2022 12:23 [...] joint effusion. 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 Followed with Rheum at [facility] Open fracture of other and [...] wrapped, (R) hand bruising and dorsal edema, irrigator overhead, Pulse Oximeter, IV, Flexiseal, male External Catheter [...] Dep Max Mod Min CG CS DS OK I Set-Up Comment Feeding x x +[place]ak, [...] Dep Max Mod Min CG CS DS OK I Set-Up Comment Toilet Transfers x Anticipate [...] Orientation: Oriented to person Place: [facility] Current Date: 01/16/85 Asked pt to state year: 2021 Follows Commands: one step commands, requires occasional repeat of directions and easily distracted Attention: difficulty with divided attention, easily distracted during task and difficulty with alternating attention Memory: Impaired - recalls incident CHILD LIFE SPECIALIST Problem Solving: Impaired Safety/Judgement: requires cues for [...] With Patients permission ordered no equipment via Planwise Order. If any questions contact [facility] DME Provider at [phone]. 6 Clicks Daily Activity OT 01/14/2022 Help [...] Guard Assist/Supervision 4 - Non = Modified [place]/Independent ASSESSMENT: Recommend further therapy services in an [...] NA = Not Assessed, I = Independent, OK = Modified Independent, Sup = Supervised, Set [...] acute alcoholic hepatitis/Cirrhosis/Encp[ja;p[atju, suspected ETOH cirrhosis, indirect envmjrsbzwfvdgo1jnx, jaundice, elevated INR, thrombocytopenia, hyponatremia, rabdomyolysis Precautions: [...] B27 positive) 2003 Followed with Rheum at [facility] Open fracture of other and [...] Patient Identified Goal(s):agreeable to work with therapy 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 If any questions contact [facility] DME Provider at [phone]. 6 Clicks Basic Mobility PT 01/14/2022 Difficulty [...] acute alcoholic hepatitis/Cirrhosis/Encp[ja;p[atju, suspected ETOH cirrhosis, indirect ehescdjgfiontje7cjf, jaundice, elevated INR, thrombocytopenia, hyponatremia, rabdomyolysis Pt [...] NA = Not Assessed, I = Independent, OK = Modified Independent, Sup = Supervised, Set [...] and 1u FFP and was transfered to [facility]- ICU for further management. On (01/08) [...] B27 positive) 2003 Followed with Rheum at [facility] Open fracture of other and [...] and 1u FFP and was transfered to [facility]- ICU for further management. On (01/08) [...] Candido Lerner MD Hematology- Oncology PGY-V Pager [phone] Associated attestation - Rd Weaver MD - [...] and copper levels Mehreen Raza MS RD [facility] Pager [phone] () Dietitian store person (-7p) pager: [phone] * Robert Allen MD - 01/08/2022 5:01 [...] the entire UE, causing him present to [facility] ED. While in the ED, the pt was noticed to be jaundiced and was found to be in acute liver failure. He was transferred to [facility] MICU for escalation of care. Ortho [...] Mcmullen DO and will be discussed with store person ortho hand attending. Dr. Welch. Robert Allen MD HÉCTOR Orthopaedic Surgery, PGY 2 Pager [phone] After 5 pm and on weekends, please page the on-call resident ([phone]) with questions or concerns. 01/08/22 This consult [...] admitted to MICU as a transfer from [facility] where he initially presented for left [...] multi vitamin, zinc, thiamine and folate supplementation. [facility] assessors for alcohol withdrawal - Start [...] continue to follow with you. Personal Pager [phone] GI Consult Pager (nights and weekends) [phone] Abbey Alvarez MD Gastroenterology Fellow Division of [...] varices. Ulysses Solomon MD documented in this [id number] Hospital Discharge instructions* Instructions* Rosa Mensah RN [...] is right for you. Copyright Copyright 2020 [employer]. and its affiliates and/or licensors. All rights [...] you to see other specialists, such as [facility] health doctor, psychiatrist, neonatal social worker, or alcohol counselor. Stay sober. [...] irritable. Where can I learn more? National [place] of Alcohol Abuse and Alcoholism http://www.niaaa.nih.gov/alcohol-health/ukyriugo-axuxxdx-gzdzcysubgb/alcohol-use -disorders National Health Service https://www.nhs.uk/conditions/alcohol-misuse/ Substance Abuse [...] is right for you. Copyright Copyright 2020 [employer]. and its affiliates and/or licensors. All rights reserved. Patient Education Alcohol Use ? When Is Drinking a Problem? The Basics Written by the doctors and editors at [employer] How do I know if I am [...] See a counselor (such as a psychologist, neonatal social worker, or psychiatrist) Take medicines Take [...] process is complete. This topic retrieved from [employer] on: Apr 04, 2020. Topic 01253 Version 9.0 Release: 28.4.6 - C28.294 2019 [employer] and/or its affiliates. All rights reserved. figure [...] and your health. Available at: http://rethinkingdrinking.niaaa.nih.gov. Graphic 65800 Version 1828.0 Consumer Information Use and Disclaimer [...] that is right for you.The use of [employer] content is governed by the [employer] Terms of Use. 2020 [employer]. All rights reserved. Copyright 2020 [employer] and/or its affiliates. All rights reserved. Patient [...] weights; are a rock climber, skier, gymnast, bench molder, or insurance processing clerk; or do other sports What are the [...] playing sports. Where can I learn more? [employer] https://orthoinfo.aaos.org/en/diseases--conditions/lyaxuc-ebushm-vgvv-at-the-elb ow Last Reviewed Date 2018-06-01 Consumer Information [...] is right for you. Copyright Copyright 2020 [employer]. and its affiliates and/or licensors. All rights [...] listed above. After business hours please call [facility] ear pull machine operator at and ask for the orthopeadicresident store person. For emergencies call [phone] [facility] Upper Extremity and Hand Surgery MD Enrique Duffy MD Kyle Chepla, MD Andrea Gallup, 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 Josiane Muhammad, MD Saroj Mojica, MD Ulysses [...] is right for you. Copyright Copyright 2020 [employer]. and its affiliates and/or licensors. All rights [...] is right for you. Copyright Copyright 2020 [employer]. and its affiliates and/or licensors. All rights reserved. Patient Education Autoimmune Hemolytic Anemia The Basics Written by the doctors and editors at [employer] What is autoimmune hemolytic anemia? -- Autoimmune [...] process is complete. This topic retrieved from [employer] on: Apr 04, 2020. Topic 37125 Version 9.0 Release: 28.4.6 - C28.294 2019 [employer]. and/or its affiliates. All rights reserved. Consumer [...] that is right for you.The use of [employer] content is governed by the [employer] Terms of Use. 2020 [employer]. All rights reserved. Copyright 2020 [employer] and/or its affiliates. All rights reserved. documented in this [id number] History and physical note* Francisco Marino MD - 01/08/2022 2:02 PM EDT MICU ATTENDING NOTE FRANCISCO MARINO MD - PIN [id number] I saw and evaluated the patient. I [...] 2 days of L arm pain to [facility] ED. 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 Pt states he was working on [...] of aleve every morning for pain. At [facility], presenting VS were 36.3C/HR 105/RR18/BP 145/68/ SpO2 98% on room air. Ht 170.18cm,wt 75kg. received morphine, ceftriaxone, protonix, thiamine. Received 1u pRBC and 1u FFP at [facility]. Started on NS @ 150cc/h. Reportedly, trauma surgery was consulted at [facility] and there was initially concern for compartment syndrome and fasciotomy was considered, but ultimately did not occur at the time. The trauma attending Dr. Du recommended orthopedic consultation upon arrival to the [facility] MICU. Labs at [facility] phos [...] ---> and please see images uploaded to [employer]. Resident's Assessment/Plan: Will Ralph is a 36 [...] for overt GIB -s/p 1u pRBC from [facility], did not increment appropriately - only [...] Code Status: Full Code Staffed with attending crisis specialist Dr. Marino. Ivy Chua MD Internal Medicine PGY-3 documented in this [id number] Evaluation + Plan note Extracted from: Title:Admission [...] immediate surgery. Patient waiting for bed at [facility] Patient received vitamin K, 1 unit FFP's. [...] tertiary center. Patient waiting for bed at [facility] Acute pancreatitis CT abdomen showed mild inflammation [...] made to ensure accuracy, however, inadvertently computerized legal officer mistakes may be present. Dr. Aldair Thorpe [...] on January 07, 2022 18:44:52 EDT . [facility]04-01-2020 Evaluation + Plan note Future Appointments Appointment Date:12/07/2023 08:00:00 AM Scheduled Provider: [facility] Echo (FT) Appointment Date:12/07/2023 09:00:00 AM Scheduled Provider: [facility] Type:CV EKG (FT) Appointment Date:12/11/2023 08:00:00 AM Scheduled Provider: [facility] Type:CV Echo Stress (FT) Appointment Date:01/27/2024 09:40:00 AM Scheduled Provider:Loreta Padilla Location:[facility] Appointment Type: Open Future Scheduled Tests Laboratory* HgbA1c 07/24/23 * Epglj-6-Krhwmtnwgbx 09/01/23 * Ceruloplasmin 09/01/23 * Antimitochondrial Antibody, [...] Contrast 12/11/23 * Echo Transthoracic Complete 12/07/23 [facility] Future Appointments Appointment Date:03/16/2023 11:00:00 AM Scheduled Provider:Teddy Hitchcock MD [facility] Appointment Type:WC [facility] Up [facility] (FT[facility] Future Appointments Appointment Date:03/30/2023 11:00:00 AM Scheduled Provider:Teddy Hitchcock MD [facility] Appointment Type:WC Follow Up Visit (FT) [facility] note Future Appointments Appointment Date:04/16/2023 12:00:00 PM Scheduled Provider: [facility] Appoint[facility] Type:US Duplex Procedures (FT) Appointment Date:04/23/2023 10:15:00 AM Scheduled Provider:Teddy Hitchcock MD [facility] Appointment Type:WC Follow Up Visit (FT) Future Scheduled Tests Radiology* US PVR Lower EXT Complete Bilat 04/16/23 [facility] Future Appointments Appointment Date:04/23/2023 10:15:00 AM Scheduled Provider:Teddy Hitchcock MD [facility] Appointment Type:WC Follow Up Visit (FT) [facility] note Future Appointments Appointment Date:04/30/2023 08:30:00 AM Scheduled Provider: [facility] Appoint[facility] Type:WC Assessment (FT) Appointment Date:05/07/2023 11:30:00 AM Scheduled Provider:Teddy Hitchcock MD [facility] Appointment Type:WC Follow Up Visit (FT) [facility] note Future Appointments Appointment Date:05/07/2023 11:30:00 AM Scheduled Provider:Teddy Hitchcock MD [facility] Appointment Type:WC Follow Up Visit (FT) [facility] note Future Appointments Appointment Date:05/14/2023 07:00:00 AM Scheduled Provider:Teddy Hitchcock MD [facility] Appointment Type:WC Follow Up Visit (FT) [facility] Future Appointments Appointment Date:05/21/2023 11:15:00 AM Scheduled Provider:Teddy Hitchcock MD [facility] Appointment Type:WC Follow Up Visit (FT) [facility] Future Appointments Appointment Date:06/04/2023 10:45:00 AM Scheduled Provider:Teddy Hitchcock MD [facility] Appointment Type:WC Follow Up Visit (FT) [facility] Future Appointments Appointment Date:06/11/2023 01:00:00 PM Scheduled Provider: [facility] Appointment Type:WC Assessment (FT) Appointment Date:06/18/2023 10:00:00 AM Scheduled Provider:Teddy Hitchcock MD [facility] Appointment Type:WC Follow Up Visit (FT) [facility] Future Appointments Appointment Date:06/25/2023 11:00:00 AM Scheduled Provider:Teddy Hitchcock MD [facility] Appointment Type:WC Follow Up Visit (FT) [facility] Future Appointments Appointment Date:07/06/2023 10:30:00 AM Scheduled Provider:Teddy Hitchcock MD [facility] Appointment Type:WC Follow Up Visit (FT) [facility] Future Appointments Appointment Date:07/16/2023 09:30:00 AM Scheduled Provider:Teddy Hitchcock MD [facility] Appointment Type:WC Follow Up Visit (FT) [facility] Future Appointments Appointment Date:07/23/2023 09:00:00 AM Scheduled Provider:Teddy Hitchcock MD [facility] Appointment Type:WC Follow Up Visit (FT) Appointment Date:07/24/2023 07:40:00 AM Scheduled Provider:Loreta Padilla Location:[facility] Appointment Type:FM New Patient - Adult [facility] Future Appointments Appointment Date:07/24/2023 07:40:00 AM Scheduled Provider:Loreta Padilla Location:[facility] Appointment Type:FM New Patient - Adult Appointment Date:08/06/2023 09:30:00 AM Scheduled Provider:Teddy Hitchcock MD [facility] Type:WC Follow Up Visit (FT) [facility] Future Appointments Appointment Date:08/06/2023 09:30:00 AM Scheduled Provider:Teddy Hitchcock MD [facility] Appointment Type:WC Follow Up Visit (FT) Appointment Date:08/21/2023 07:20:00 AM Scheduled Provider:Loreta Padilla Location:[facility] Appointment Type: Open Future Scheduled Tests [...] 07/24/23 * Vitamin B12 Level 07/24/23 [facility] Primary Care Evaluation + Plan note Future Appointments Appointment Date:08/21/2023 07:20:00 AM Scheduled Provider:Loreta Padilla Location:[facility] Appointment Type:FM Open Appointment Date:09/01/2023 12:00:00 PM Scheduled Provider:Mario Evans MD [facility] New Patient Future Scheduled Tests Laboratory* HgbA1c [...] Acid 07/24/23 * Vitamin B12 Level 07/24/23 [facility] Future Appointments Appointment Date:09/01/2023 12:00:00 PM Scheduled Provider:Carrol MULTANI, Mario Xiong Location:[facility] Appointment Type:BAD New Patient Appointment Date:10/28/2023 09:00:00 AM Scheduled Provider:Loreta Padilla [place] Appointment Type: Open Future Scheduled Tests [...] 07/24/23 * Vitamin B12 Level 07/24/23 [facility] Primary Care Evaluation + Plan note Future Appointments Appointment Date:09/03/2023 09:00:00 AM Scheduled Provider: Location[facility] Appointment Type:US Abdominal/Pelvis () Appointment Date:10/28/2023 09:00:00 AM Scheduled Provider:Loreta Padilla Location:[facility] Appointment Type: Open Future Scheduled Tests Laboratory* HgbA1c 07/24/23 * Wuhmw-2-Nwnjbaarykv 09/01/23 * Ceruloplasmin 09/01/23 * Antimitochondrial Antibody, [...] Level 07/24/23 Radiology* US Liver 09/03/23 [facility] Evaluation + Plan note Future Appointments Appointment Date:10/28/2023 09:00:00 AM Scheduled Provider:Loreta Padilla Location:[facility] Appointment Type: Open Future Scheduled Tests Laboratory* HgbA1c 07/24/23 * Cbtll-9-Jdzfdggomwj 09/01/23 * Ceruloplasmin 09/01/23 * Antimitochondrial Antibody, [...] Acid 07/24/23 * Vitamin B12 Level 07/24/23 [facility] Future Appointments Appointment Date:09/30/2023 10:15:00 AM Scheduled Provider: Location:[facility] Appointment Type:Surgery FT Appointment Date:10/01/2023 11:20:00 AM Scheduled Provider:Loreta Padilla Location:[facility] Appointment Type:FM Open Appointment Date:10/28/2023 09:00:00 AM Scheduled Provider:Loreta Padilla Location:[facility] Appointment Type: Open Future Scheduled Tests Laboratory* HgbA1c 07/24/23 * Lzmhs-5-Ltpwizjptcf 09/01/23 * Ceruloplasmin 09/01/23 * Antimitochondrial Antibody, [...] 07/24/23 * Vitamin B12 Level 07/24/23 [facility] Evaluation + Plan note Future Appointments Appointment Date:11/11/2023 03:00:00 PM Scheduled Provider: Location:[facility] Appointment Type:Surgery FT Appointment Date:11/13/2023 01:00:00 PM Scheduled Provider:Iglesia Dior MD [facility] [place] Appointment Type:Cardiology New Patient (FT) Appointment Date:12/07/2023 08:00:00 AM Scheduled Provider: [facility] Type:CV Echo (FT) Appointment Date:12/07/2023 09:00:00 AM Scheduled Provider: [facility] Type:CV EKG () Appointment Date:12/07/2023 09:30:00 AM Scheduled Provider: [facility] Type:CV Echo Stress () Appointment Date:01/27/2024 09:40:00 AM Scheduled Provider:Loreta Padilla Location:[facility] Appointment Type: Open Future Scheduled Tests Laboratory* HgbA1c 07/24/23 * Nilzn-5-Xzzskejrdhw 09/01/23 * Ceruloplasmin 09/01/23 * Antimitochondrial Antibody, [...] 12/07/23 * Echo Transthoracic Complete 12/07/23 [facility] Primary Care Evaluation + Plan note Future Appointments Appointment Date:01/27/2024 09:40:00 AM Scheduled Provider:Loreta Padilla Location:[facility] Appointment Type:FM Open Appointment Date:05/12/2024 03:15:00 PM Scheduled Provider:Carrol MULTANI, Mario Xiong [place] Appointment Type:BADH Follow Up Future Scheduled Tests Laboratory* HgbA1c 07/24/23 * Cghht-7-Sjnxrwinkhk 09/01/23 * Ceruloplasmin 09/01/23 * Antimitochondrial Antibody, [...] Acid 07/24/23 * Vitamin B12 Level 07/24/23 [facility] Future Appointments Appointment Date:12/23/2023 10:00:00 AM Scheduled Provider:Loreta Padilla Location:[facility] Appointment Type: Hospital Follow Up w/TCM Appointment Date:12/25/2023 11:15:00 AM Scheduled Provider:Marc Liz MD [facility] [place] App[facility] Type:Cardiology New Patient () Appointment Date:01/27/2024 09:40:00 AM Scheduled Provider:Loreta Padilla Location:[facility] Appointment Type: Open Appointment Date:05/12/2024 03:15:00 PM Scheduled Provider:Mario Evans MD Location[place] App[facility]ment Type:[facility] Follow Up Diagnostic Tests Pending * Acute Hepatitis A B C Panel 12/21/23 * HCV Antibody RFX to Quant PCR 12/21/23 * HIV Screen 4th Generation wRfx 12/21/23 Future Scheduled Tests Laboratory* Fbbdo-7-Bhmqzetmcyp 09/01/23 * Ceruloplasmin 09/01/23 * Antimitochondrial Antibody, [...] 07/24/23 * PT 07/24/23 * PT 09/01/23 [facility] Future Appointments Appointment Date:12/31/2023 08:00:00 AM Scheduled Provider: [facility] Appointment Type:US Abdominal/Pelvis () Appointment Date:01/06/2024 08:15:00 AM Scheduled Provider:Marc Liz MD [facility] [place] App[facility] Type:Cardiology New Patient (FT) Appointment Date:01/27/2024 09:40:00 AM Scheduled Provider:Loreta Padilla Location:[facility] Appointment Type:FM Open Appointment Date:05/12/2024 03:15:00 PM Scheduled Provider:Mario Evans MD Location[place] Appointment Type:BAD Follow Up Future Scheduled Tests Laboratory* Jwbnw-1-Bijijnqnwbd 09/01/23 * Ceruloplasmin 09/01/23 * Antimitochondrial Antibody, [...] 09/01/23 Radiology* US Abdomen, Limited 12/31/23 [facility] Primary Care Evaluation + Plan note Future Appointments Appointment Date:01/06/2024 08:15:00 AM Scheduled Provider:Marc Liz MD [facility] Appointment Type:Cardiology New Patient (FT) Appointment Date:01/27/2024 09:40:00 AM Scheduled Provider:Loreta Padilla Location:[facility] Appointment Type:FM Open Appointment Date:05/12/2024 03:15:00 PM Scheduled Provider:Mario Evans MD Location[place] Appointment Type:BAD Follow Up Future Scheduled Tests Laboratory* Kwqnf-1-Tcrtabgmxod 09/01/23 * Ceruloplasmin 09/01/23 * Antimitochondrial Antibody, [...] 07/24/23 * PT 07/24/23 * PT 09/01/23 [facility] Future Appointments Appointment Date:02/26/2024 08:15:00 AM Scheduled Provider:Barby MULTANI, Iglesia Mary [facility] [place] Appointment Type:Cardiology New Patient (FT) Appointment Date:04/29/2024 09:00:00 AM Scheduled Provider:Loreta Padilla Location:[facility] Appointment Type: Open Appointment Date:05/12/2024 03:15:00 PM Scheduled Provider:Mario Evans MD [place] Appointment Type:[facility] Follow Up Future Scheduled Tests Laboratory* Tsskn-2-Bvukfjqbhyq 09/01/23 * Ceruloplasmin 09/01/23 * Antimitochondrial Antibody, [...] * PT 07/24/23 * PT 09/01/23 [facility] Primary Care Evaluation + Plan note Future Appointments Appointment Date:02/22/2024 09:15:00 AM Scheduled Provider:Marc Liz MD [facility] Type:Cardiology New Patient (FT) Appointment Date:02/25/2024 09:00:00 AM Scheduled Provider:Ella Barahona [facility] Type:ONC Office Visit New 45 (FT) Appointment Date:04/29/2024 09:00:00 AM Scheduled Provider:Loreta Padilla Location:[facility] Appointment Type:FM Open Appointment Date:05/12/2024 03:15:00 PM Scheduled Provider:Mario Evans MD Location[place] Appointment Type:BADH Follow Up Future Scheduled Tests Laboratory* Osiyp-6-Iivtlmvmszg 09/01/23 * Ceruloplasmin 09/01/23 * Antimitochondrial Antibody, [...] 07/24/23 * PT 07/24/23 * PT 09/01/23 [facility] Future Appointments Appointment Date:03/14/2024 09:20:00 AM Scheduled Provider:Ella Barahona [facility] Type:ONC Office Visit 20 (FT) Appointment Date:03/16/2024 08:15:00 AM Scheduled Provider:Marc Liz MD [facility] Type:Cardiology New Patient (FT) Appointment Date:04/29/2024 09:00:00 AM Scheduled Provider:Loreta Padilla Location:[facility] Appointment Type: Open Appointment Date:05/12/2024 03:15:00 PM Scheduled Provider:Mario Evans MD Location:[facility] Appointment Type:BADH Follow Up Future Scheduled Tests Laboratory* Yuzsj-0-Akqjtlmzwzu 09/01/23 * Ceruloplasmin 09/01/23 * Antimitochondrial Antibody, [...] 07/24/23 * PT 07/24/23 * PT 09/01/23 [facility] Future Appointments Appointment Date:03/14/2024 09:20:00 AM Scheduled Provider:Ella Barahona [facility] Type:ONC Office Visit 20 (FT) Appointment Date:03/17/2024 02:15:00 PM Scheduled Provider:Marc Liz MD [facility] Type:Cardiology New Patient (FT) Appointment Date:04/29/2024 09:00:00 AM Scheduled Provider:Loreta Padilla Location:[facility] Appointment Type:FM Open Appointment Date:05/12/2024 03:15:00 PM Scheduled Provider:Mario Evans MD Location:[facility] App[facility]ment Type:[facility] Follow Up Diagnostic Tests Pending * Haptoglobin 03/02/24 * Copper Level 03/02/24 Future Scheduled Tests Laboratory* Muvtm-6-Zculpywfisv 09/01/23 * Ceruloplasmin 09/01/23 * Antimitochondrial Antibody, [...] 07/24/23 * PT 07/24/23 * PT 09/01/23 [facility] Future Appointments Appointment Date:03/17/2024 02:15:00 PM Scheduled Provider:Marc Liz MD Location[facility] Appointment Type:Cardiology New Patient (FT) Appointment Date:04/13/2024 09:00:00 AM Scheduled Provider:Kavon Lu DO [facility] Type:ONC Office Visit 20 (FT) Appointment Date:04/29/2024 09:00:00 AM Scheduled Provider:Loreta Padilla Location:[facility] Appointment Type:FM Open Appointment Date:05/12/2024 03:15:00 PM Scheduled Provider:Mario Evans MD Location:[facility] Appointment Type:[facility] Follow Up Future Scheduled Tests Laboratory* Hggpq-4-Ltmwegtmeum 09/01/23 * Ceruloplasmin 09/01/23 * Antimitochondrial Antibody, [...] * PT 09/01/23 * Reticulocyte Count 04/04/24 [facility] Future Appointments Appointment Date:04/13/2024 09:00:00 AM Scheduled Provider:Kavon Lu DO [facility] Type:ONC Office Visit 20 (FT) Appointment Date:04/29/2024 09:00:00 AM Scheduled Provider:Loreta Padilla Location:[facility] Appointment Type: Open Appointment Date:05/12/2024 03:15:00 PM Scheduled Provider:Mario Evans MD Location[place] Appointment Type:BADH Follow Up Future Scheduled Tests Laboratory* Yyqky-8-Ydaceytfdwj 09/01/23 * Ceruloplasmin 09/01/23 * Antimitochondrial Antibody, [...] * PT 09/01/23 * Reticulocyte Count 04/04/24 [facility] Future Appointments Appointment Date:05/05/2024 01:40:00 PM Scheduled Provider:Kavon Lu DO [facility] Type:ONC Office Visit 20 (FT) Appointment Date:05/12/2024 03:15:00 PM Scheduled Provider:Carrol MULTANI, Mario Xiong Location:[facility] Appointment Type:BADH Follow Up Appointment Date:07/29/2024 03:00:00 PM Scheduled Provider:Loreta Padilla Location:[facility] Appointment Type: Open Future Scheduled Tests Laboratory* Nycqr-4-Hrxpavmfdyf 09/01/23 * Ceruloplasmin 09/01/23 * Antimitochondrial Antibody, [...] PT 09/01/23 * Reticulocyte Count 04/27/24 [facility] Primary Care Evaluation + Plan note Future Appointments Appointment Date:05/11/2024 09:00:00 AM Scheduled Provider:Kavon Lu DO [facility] Type:ONC Office Visit 20 (FT) Appointment Date:05/12/2024 03:15:00 PM Scheduled Provider:Mario Evans MD [place] Appointment Type:[facility] Follow Up Appointment Date:07/29/2024 03:00:00 PM Scheduled Provider:Loreta Padilla Location:[facility] Appointment Type:FM Open Diagnostic Tests Pending * Haptoglobin 05/06/24 Future Scheduled Tests Laboratory* Ffhbv-3-Egwoeqwqwsd 09/01/23 * Ceruloplasmin 09/01/23 * Antimitochondrial Antibody, [...] 07/24/23 * PT 07/24/23 * PT 09/01/23 [facility] Evaluation + Plan note Future Appointments Appointment Date:05/12/2024 03:15:00 PM Scheduled Provider:Mario Evans MD [facility] Appointment Type:[facility] Follow Up Appointment Date:07/14/2024 02:40:00 PM Scheduled Provider:Kavon Lu DO [facility] Type:ONC Office Visit 20 (FT) Appointment Date:07/29/2024 03:00:00 PM Scheduled Provider:Loreta Padilla Location:[facility] Appointment Type:FM Open Future Scheduled Tests Laboratory* Antibody Screen 07/11/24 * Etnsw-4-Yrmdfdjqcfl 09/01/23 * Ceruloplasmin 09/01/23 * Antimitochondrial Antibody, [...] * Reticulocyte Count 07/11/24 * Transferrin 07/11/24 [facility] Evaluation + Plan note Future Appointments Appointment Date:05/24/2024 10:30:00 AM Scheduled Provider: [facility] Appoint[facility] Type:US Abdominal/Pelvis (FT) Appointment Date:06/09/2024 01:15:00 PM Scheduled Provider:Mario Evans MD Location[facility] Appointment Type:BADH Follow Up Appointment Date:07/14/2024 02:40:00 PM Scheduled Provider:Kavon Lu DO [facility] Type:ONC Office Visit 20 (FT) Appointment Date:07/29/2024 03:00:00 PM Scheduled Provider:Loreta Padilla Location:[facility] Appointment Type: Open [facility] Scheduled Tests Laboratory* Antibody Screen 07/11/24 * Hssnz-8-Rjudrnjnqbm 09/01/23 * Fujul-3-Rbxehshzuyz 9/5/24 * Ceruloplasmin 09/01/23 * Ceruloplasmin 05/12/24 [...] Transferrin 07/11/24 Radiology* US Liver 05/24/24 [facility] Evaluation + Plan note Future Appointments Appointment Date:07/14/2024 02:40:00 PM Scheduled Provider:Kavon Lu DO [facility] Type:ONC Office Visit 20 (FT) Appointment Date:07/29/2024 03:00:00 PM Scheduled Provider:Loreta Padilla Location:[facility] Appointment Type:FM Open Appointment Date:11/18/2024 08:15:00 AM Scheduled Provider: Location:[facility] Appointment Type:Surgery FT Appointment Date:11/21/2024 09:15:00 AM Scheduled Provider:Mario Evans MD Location[facility] Appointment Type:[facility] Follow Up Future Scheduled Tests Laboratory* Antibody [...] Transferrin 07/11/24 Radiology* US Liver 11/05/24 [facility] Evaluation + Plan note Future Appointments Appointment Date:07/14/2024 02:40:00 PM Scheduled Provider:Kavon Lu DO [facility] Type:ONC Office Visit 20 (FT) Appointment Date:07/29/2024 03:00:00 PM Scheduled Provider:Loreta Padilla Location:[facility] Appointment Type:FM Open Appointment Date:11/18/2024 08:15:00 AM Scheduled Provider: Location:[facility] Appointment Type:Surgery FT Appointment Date:11/21/2024 09:15:00 AM Scheduled Provider:Mario Evans MD Location[facility] Appointment Type:BAD Follow Up Diagnostic [...] * PT 07/24/23 Radiology* US Liver 11/05/24 [facility] Evaluation + Plan note Future Appointments Appointment Date:08/19/2024 03:20:00 PM Scheduled Provider:Loreta Padilla Location:[facility] Appointment Type: Open Appointment Date:09/29/2024 01:20:00 PM Scheduled Provider:Kavon Lu DO [facility] Type:ONC Office Visit 20 (FT) Appointment Date:11/18/2024 08:15:00 AM Scheduled Provider: Location:[facility] Appointment Type:Surgery FT Appointment Date:11/21/2024 09:15:00 AM Scheduled Provider:Mario Evans MD Location:[facility] App[facility]ment Type:[facility] Follow Up Future Scheduled Tests Laboratory* MELLISA [...] * PT 07/24/23 Radiology* US Liver 11/05/24 [facility] Evaluation + Plan note Future Appointments Appointment Date:06/09/2024 01:15:00 PM Scheduled Provider:Mario Evans MD Location:[facility] Appointment Type:BADH Follow Up Appointment Date:07/14/2024 02:40:00 PM Scheduled Provider:Kavon Lu DO [facility] Type:ONC Office Visit 20 (FT) Appointment Date:07/29/2024 03:00:00 PM Scheduled Provider:Loreta Padilla Location:[facility] Appointment Type: Open Diagnostic Tests Pending * [id number]-[id number] 05/24/24 * GEOVANNA w/Reflex if POS 05/24/24 * Antimitochondrial Antibody, Quantitative 05/24/24 * Ceruloplasmin 05/24/24 * Acute Hepatitis A B C Panel 05/24/24 * Alpha Fetoprotein Tumor Marker 05/24/24 * Hepatitis B Surface Antibody 05/24/24 * Hepatitis B Surface Antigen 05/24/24 * Hepatitis A Virus (HAV) Antibody, Total 05/24/24 * IgG, Quant. 05/24/24 * Smooth Muscle Antibody Screen 05/24/24 * Ukcxl-4-Enlddtubxth 05/24/24 * GEOVANNA w/Reflex if POS 05/24/24 [...] * Reticulocyte Count 07/11/24 * Transferrin 07/11/24 [facility] Evaluation + Plan note Future Appointments Appointment Date:09/29/2024 01:20:00 PM Scheduled Provider:Kavon Lu DO Location[facility] Appointment Type:ONC Office Visit 20 (FT) Appointment Date:11/15/2024 07:40:00 AM Scheduled Provider:Vic Carrion Location:[facility] Appointment Type: Open Appointment Date:11/18/2024 08:15:00 AM Scheduled Provider: Location:[facility] Appointment Type:Surgery FT Appointment Date:11/21/2024 09:15:00 AM Scheduled Provider:Mario Evans MD Location[facility] Appointment Type:BADH Follow Up Future [...] PT 07/24/23 Radiology* US Liver 11/05/24 [facility] Evaluation + Plan note Future Appointments Appointment Date:09/29/2024 01:20:00 PM Scheduled Provider:Kavon Lu DO Location:.[facility] Appointment Type:ONC Office Visit 20 (FT) Appointment Date:10/05/2024 09:00:00 AM Scheduled Provider:Vic Carrion Location:[facility] Appointment Type:FM Open Appointment Date:11/18/2024 08:15:00 AM Scheduled Provider: Location:[facility] Appointment Type:Surgery FT Appointment Date:11/21/2024 09:15:00 AM Scheduled Provider:Mario Evans MD Location:[facility] Appointment Type:[facility] Follow Up Diagnostic Tests Pending * MELLISA [...] * PT 07/24/23 Radiology* US Liver 11/05/24 [facility] Evaluation + Plan note Future Appointments Appointment Date:10/05/2024 09:00:00 AM Scheduled Provider:Vic Carrion Location:[facility] Appointment Type:FM Open Appointment Date:11/11/2024 08:30:00 AM Scheduled Provider: [facility] Appointment Type:US Abdominal/Pelvis (FT) Appointment Date:11/18/2024 08:15:00 AM Scheduled Provider: Location:[facility] Appointment Type:Surgery FT Appointment Date:11/21/2024 09:15:00 AM Scheduled Provider:Mario Evans MD Location[facility] Appointment Type:BADH Follow Up Appointment Date:09/28/2025 02:40:00 PM Scheduled Provider:Kavon Lu DO [facility] App[facility] Type:ONC Office Visit 20 (FT) [...] B12 Level 09/25/25 Radiology* US Liver 11/11/24 [facility] Evaluation + Plan note Future Appointments Appointment Date:11/11/2024 08:30:00 AM Scheduled Provider: [facility] Appointment Type:US Abdominal/Pelvis (FT) Appointment Date:11/18/2024 08:15:00 AM Scheduled Provider: Location:[facility] Appointment Type:Surgery FT Appointment Date:11/21/2024 09:15:00 AM Scheduled Provider:Mario Evans MD Location[facility] Appointment Type:BADH Follow Up Appointment Date:04/07/2025 08:40:00 AM Scheduled Provider:Vic Carrion Location:[facility] Appointment Type:FM Open Appointment Date:09/28/2025 02:40:00 PM Scheduled Provider:Kavon Lu DO [facility] App[facility] Type:ONC Office Visit 20 (FT) [...] Level 09/25/25 Radiology* US Liver 11/11/24 [facility] Evaluation + Plan note Future Appointments Appointment Date:11/11/2024 08:30:00 AM Scheduled Provider: [facility] Appointment Type:US Abdominal/Pelvis (FT) Appointment Date:11/18/2024 08:15:00 AM Scheduled Provider: Location:[facility] Appointment Type:Surgery FT Appointment Date:11/21/2024 09:15:00 AM Scheduled Provider:Mario Evans MD Location[facility] Appointment Type:BADH Follow Up Appointment Date:04/07/2025 08:40:00 AM Scheduled Provider:Vic Crarion Location:[facility] Appointment Type:FM Open Appointment Date:09/28/2025 [...] B12 Level 09/25/25 Radiology* US Liver 11/11/24 [facility] Evaluation + Plan note Future Appointments Appointment Date:11/21/2024 08:30:00 AM Scheduled Provider:Sadie Loco PA-C [facility] App[facility] Type:Pain Management - Follow Up (FT) Appointment Date:11/21/2024 09:15:00 AM Scheduled Provider:Mario Evans MD Location[facility] Appointment Type:BADH Follow Up Appointment Date:04/07/2025 08:40:00 AM Scheduled Provider:Vic Carrion Location:[facility] Appointment Type:FM Open Appointment Date:09/28/2025 02:40:00 PM Scheduled Provider:Kavon Lu DO [facility] App[facility] Type:ONC Office Visit 20 (FT) [...] B12 Level 09/25/25 Radiology* US Liver 05/08/25 [facility] Evaluation + Plan note Future Appointments Appointment Date:04/07/2025 08:40:00 AM Scheduled Provider:Vic Carrion Location:[facility] Appointment Type: Open Appointment Date:09/28/2025 02:40:00 [...] B12 Level 09/25/25 Radiology* US Liver 05/08/25 [facility] Evaluation + Plan note Future Appointments Appointment Date:12/20/2024 08:15:00 AM Scheduled Provider:Sadie Loco PA-C [facility] Appointment Type:Pain Management - Follow Up (FT) Appointment Date:04/07/2025 08:40:00 AM Scheduled Provider:Vic Carrion Location:[facility] Appointment Type:FM Open Appointment Date:09/28/2025 02:40:00 PM Scheduled Provider:Kavon Lu DO [facility] Appoint[facility] Type:ONC Office Visit 20 (FT) [...] B12 Level 09/25/25 Radiology* US Liver 05/08/25 [facility] evaluation note* Diagnosis Hemolytic anemia (HCC)- Primary [...] cholecystitis or obstruction [facility] Diagnosis Coagulation defect (HCC)- Primary Other and unspecified coagulation defects Alcoholic fatty liver Hyperbilirubinemia Disorders of bilirubin excretion Alcoholic hepatitis, unspecified whether ascites present (HCC) [facility] Diagnosis 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, unspecified site [facility] Diagnosis Lymphedema- Primary Other noninfectious lymphedema documented [facility]* Diagnosis Other chronic pain- Primary Spinal cord stimulator status [facility] N[facility]ative - Reported* Type Description Date Medical History anxiety Medical History LIVER ISSUES Surgical History fx jaw Hospitalization History LIVER ISSUES 2021 Interventional Imaging Other Hospital course Narrative No data available for this section [facility] No data available for this section [facility] Discharge instructions* Attachments The following attachments cannot be sent through Care Everywhere. * Moderate Sedation in Adults Discharge Instructions (Fijian) * Liver Biopsy Discharge Instructions (Fijian) documented [facility] encounter[facility]InstructionsNot on filedocumented in this encounterProJ.[facility] SystemInstructionsNot on filedocumented in this encounterProJ.[facility]. [facility] SystemInstructionsNot on filedocumented in this encounterProJ.W. [facility] SystemInstructionsNot on filedocumented in this encounterRiver[facility] SystemProgress note No data available for this section [facility]ative)* Tests/Procedures (Routine) - Authorized Specialty Diagnoses / Procedures Referred By Contact Referred To Contact Cardiovascular Testing Diagnoses Bilateral swelling of feet and ankles Tanvir Black MD [address] [facility] [place] [id number] [facility] CARD NON INVASIVE [address] [place] [address] Referral ID Status Reason Start Date Expiration Date V isits Requested Visits Authorized [id number] Authorized 03/13/2022 03/13/2023 1 1 Scheduling Instructions [...] call the [facility] at [phone] ([phone]) if you are unable to keep [...] SpO2 100 %. Room/bed [facility] not found [facility] Narrative* Auth/Cert Specialty Diagnoses / Procedures Referred By Taya hope Referred To Contact Case Management Diagnoses Acute Liver Failure Procedures [employer] [place] [address] Phone: [phone] [employer] [place] [address] Phone: [phone] Referral ID Status Reason Start Date Expiration Date Visits Re quested Visits Authorized [id number] 3 3 [facility] for visit Narrative* Tests/Procedures (Routine) - Closed Specialty Diagnoses / Procedures Referred By Contact Referred To Contact Cardiovascular Testing Diagnoses Bilateral swelling of feet and ankles Tanvir Black MD [address] [place], [place] [address] [place] [address] [facility] CARD NON INVASIVE [facility] [employer] [place] [address] Referral ID Status Reason Start Date Expiration Date Visits Re quested Visits Authorized [id number] Closed 03/13/2022 03/13/2023 1 1 [facility] for visit Narrative* Neuropsych Testing (Routine) - Closed Specialty Diagnoses / Procedures Referred By Taya hope Referred To Contact Neurology Diagnoses Other specified mononeuropathies of unspecified lower limb Procedures ME NEUROPSYCHOLOGICAL TST EVAL PHYS/QHP EA ADDL HR Evelio Carr, DO [address] [place] [address] Phone: tel: fax: Alex Margoth, DO [address] [place] [address] Phone: tel: fax: Referral ID Status Reason Start Date Expiration Date V isits Requested Visits Authorized [id number] Closed Specialty Services Required 01/13/2025 07/12/2025 1 1 [facility] Reason for Referral Specialty Diagnoses / Procedures Referred By Contac t Referred To Contact Diagnoses Alcoholic fatty liver Hyperbilirubinemia Alcoholic hepatitis, unspecified whether ascites present (HCC) Procedures XA HEPATIC VENOGRAM W/ HEMODYN (CHRISTIANO) Marcello Ibanez MD [address] [place] [address] S INTERVENTIONAL RAD [address] [place] [address] Referral ID Status Reason Start Date Expiration Date Visits Re quested Visits Authorized [id number] Closed 01/20/2023 01/20/2024 1 1 Specialty Diagnoses / Procedures Referred By Contac t Referred To Contact Radiology Diagnoses Alcoholic cirrhosis of liver without ascites (HCC) Procedures XA TRANSJUGULAR LIVER BIOPSY (CHRISTIANO) XA INTERVENTIONAL RADIOLOGY PROCEDURE SERVICE Marcello Ibanez MD [address] [place] [address] [facility] [address] [place] [address] Referral ID Status Reason Start Date Expiration Date V isits Requested Visits Authorized [id number] Authorized 10/27/2022 10/27/2023 1 1 Specialty Diagnoses / Procedures Referred By Contac t Referred To Contact Radiology Diagnoses Rib pain Procedures XR RIBS LT UNILAT W/PA CHEST Theo Burks MD [address] [place] [address] [place] [address] S DIAGNOSTIC RADIOLOGY [address] [place] [address] [place] [address] Referral ID Status Reason Start Date Expiration Date V isits Requested Visits Authorized [id number] Authorized 12/15/2022 12/15/2023 1 1 Specialty Diagnoses / Procedures Referred By Contac t Referred To Contact Diagnoses Theo Molina MD [address] [place] [address] Referral ID Status Reason Start Date Expiration Date V isits Requested Visits Authorized [id number] Pending Review 3 3 Specialty Diagnoses / Procedures Referred By Contac t Referred To Contact Diagnoses Iron deficiency anemia, unspecified iron deficiency anemia type Alcoholic cirrhosis, unspecified whether ascites present (HCC) Alcoholic cirrhosis of liver without ascites (HCC) Tanvir Black MD [address] [place] [address] [place] [address] Referral ID Status Reason Start Date Expiration Date Visits Re quested Visits Authorized [id number] Closed 3 3 Specialty Diagnoses / Procedures Referred By Contac t Referred To Contact Radiology Diagnoses Alcoholic cirrhosis of liver without ascites (HCC) Procedures XA TRANSJUGULAR LIVER BIOPSY (CHRISTIANO) XA INTERVENTIONAL RADIOLOGY PROCEDURE SERVICE Marcello Ibanez MD [address] [place] [address] [facility] [address] [place] [address] Referral ID Status Reason Start Date Expiration Date V isits Requested Visits Authorized [id number] Authorized 10/27/2022 10/27/2023 1 1 Specialty Diagnoses / Procedures Referred By Contac t Referred To Contact Diagnoses Urinary tract infection without hematuria, site unspecified Leg swelling Tanvir Black MD [address] [place] [address] [place] [address] [facility] [address] [place] [address] Referral ID Status Reason Start Date Expiration Date V isits Requested Visits Authorized [id number] Authorized 08/21/2022 02/17/2023 3 3 Scheduling Instructions Please call Internal Medicine at to schedule an appointment. Specialty Diagnoses / Procedures Referred By Contac t Referred To Contact Radiology Diagnoses Lower extremity edema Procedures US LEG RIGHT VENOUS + DOPPLER Tanvir Black MD [address] [facility] [place] [address] [facility] [address] [place] [address] Referral ID Status Reason Start Date Expiration Date Visits Re quested Visits Authorized [id number] Closed 08/14/2022 08/14/2023 1 1 Specialty Diagnoses / Procedures Referred By Contac t Referred To Contact Radiology Diagnoses Iron deficiency anemia, unspecified iron deficiency anemia type Alcoholic cirrhosis, unspecified whether ascites present (HCC) Procedures US HEP PORT SPLEN VEIN + DOPPLER Saskia [facility], 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 [address] [facility] [place] [address] S ULTRASOUND [address] [place] [address] Referral ID Status Reason Start Date Expiration Date V isits Requested Visits Authorized [id number] Authorized 08/14/2022 08/14/2023 1 1 Specialty Diagnoses / Procedures Referred By Contac t Referred To Contact Radiology Diagnoses Iron deficiency anemia, unspecified iron deficiency anemia type Alcoholic cirrhosis, unspecified whether ascites present (HCC) Procedures US LIVER/GALL BLADDER/PANCREAS Saskia Madison, 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 [address] [place] [address] [place] [address] S [facility] [address] [place] [address] Referral ID Status Reason Start Date Expiration Date V isits Requested Visits Authorized [id number] Authorized 08/14/2022 08/14/2023 1 1 Specialty Diagnoses / Procedures Referred By Contac t Referred To Contact Afua Umanzor MD [address] [place] [address] Referral ID Status Reason Start Date Expiration Date V isits Requested Visits Authorized [id number] Pending Review 3 3 Referral ID Status Reason Start Date Expiration Date V isits Requested Visits Authorized [id number] Pending Review 3 3 Specialty Diagnoses / Procedures Referred By Contac t Referred To Contact Gastroenterology Diagnoses Alcoholic cirrhosis of liver without ascites (HCC) Afua Umanzor MD [address] [place] [address] [facility] [address] [place] [address] Referral ID Status Reason Start Date Expiration Date V isits Requested Visits Authorized [id number] Authorized 01/17/2022 01/17/2023 3 3 Scheduling Instructions [...] antibody (HCC) Thrombocytopenia (HCC) Afua Umanzor MD [address] [place] [address] [facility] [address] [place] [address] Referral ID Status Reason Start Date Expiration Date V isits Requested Visits Authorized [id number] Authorized 01/17/2022 01/17/2023 3 3 Scheduling Instructions Please call the [facility] at [phone] to schedule an appointment if one was not made for you today. Specialty Diagnoses / Procedures Referred By Taya t Referred To Contact Diagnoses Tear of left biceps muscle, initial encounter Afua Umanzor MD [address] [place] [address] [facility] [address] [place] [address] Referral ID Status Reason Start Date Expiration Date V isits Requested Visits Authorized [id number] Authorized 01/17/2022 01/17/2023 3 3 Scheduling Instructions Please call the [facility] at [phone] to schedule an appointment if one was not made for you today. Question Answer Adult patient to be evaluated for: Elbow - Bicep Tear - Left [5] Comments No prior visits in PM&R No prior visits in Orthopedics Specialty Diagnoses / Procedures Referred By Contac t Referred To Contact Radiology Procedures US HEP PORT SPLEN VEIN + DOPPLER Ccp [address] [address] [facility] [address] [place] [address] Referral ID Status Reason Start Date Expiration Date Visits Re quested Visits Authorized [id number] Closed 01/10/2022 01/10/2023 1 1 Specialty Diagnoses / Procedures Referred By Contac t Referred To Contact Radiology Procedures US SPLEEN US SPLEEN Ccp [address] [address] [facility] [address] [place] [id number] Referral ID Status Reason Start Date Expiration Date Visits Re quested Visits Authorized [id number] Closed 01/09/2022 01/09/2023 1 1 Specialty Diagnoses / Procedures Referred By Contac t Referred To Contact Radiology Procedures XR ABDOMEN 1 VIEW AP Ccp [address] [address] [facility] [address] [place] [address] [place] [address] Referral ID Status Reason Start Date Expiration Date Visits Re quested Visits Authorized [id number] Closed 01/09/2022 01/09/2023 1 1 Specialty Diagnoses / Procedures Referred By Contac t Referred To Contact Radiology Procedures XR ORBITS Ccp [address] [address] [facility] [address] [place] [address] [place] [address] Referral ID Status Reason Start Date Expiration Date Visits Re quested Visits Authorized [id number] Closed 01/08/2022 01/08/2023 1 1 Specialty Diagnoses / Procedures Referred By Contac t Referred To Contact Radiology Procedures US ASCITES SURVEY 4 QUADRANTS Ccp [address] [address] [facility] [address] [place] [address] Referral ID Status Reason Start Date Expiration Date Visits Re quested Visits Authorized [id number] Closed 01/08/2022 01/08/2023 1 1 Specialty Diagnoses / Procedures Referred By Contac t Referred To Contact Radiology Procedures US LIVER/GALL BLADDER/PANCREAS Ccp [address] [place] [address] [place] [address] [facility] [address] [place] [address] Referral ID Status Reason Start Date Expiration Date Visits Re quested Visits Authorized [id number] Closed 01/08/2022 01/08/2023 1 1 Specialty Diagnoses / Procedures Referred By Contac t Referred To Contact Radiology Procedures XRAY CHEST IMAGE IMPORT(CHRISTIANO) Ivy Chua MD [address] [place] [address] [facility] [address] [place] [address] [place] [address] Referral ID Status Reason Start Date Expiration Date Visits Re quested Visits Authorized [id number] Closed 01/08/2022 01/08/2023 1 1 Specialty Diagnoses / Procedures Referred By Contac t Referred To Contact Radiology Procedures CT BODY IMAGE IMPORT(CHRISTIANO) DOWNLOAD POWERSHARE IMAGES TO [facility] Ivy Chua MD [address] [place] [address] [facility] [address] [place] [address] Dr [place] [id number] Referral ID Status Reason Start Date Expiration Date Visits Re quested Visits Authorized [id number] Closed 01/08/2022 01/08/2023 1 1 Specialty Diagnoses / Procedures Referred By Contac t Referred To Contact Radiology Procedures XR HUMERUS LEFT Ccp 3 [place] [id number] [facility] [address] [place] [address] [place] [address] Referral ID Status Reason Start Date Expiration Date Visits Re quested Visits Authorized [id number] Closed 01/08/2022 01/08/2023 1 1 Specialty Diagnoses / Procedures Referred By Contac t Referred To Contact Radiology Procedures XR ELBOW LEFT MINIMUM 3 VIEWS Ccp [address] [place], [place] [id number] [facility] [address] [place] [address] [place] [address] Referral ID Status Reason Start Date Expiration Date Visits Re quested Visits Authorized [id number] Closed 01/08/2022 01/08/2023 1 1 Advance Directives [...] Transdermal, EVERY 7 DAYS, First dose on [facility] 01/09/22 at 1400, Until Discontinued 1446 (Patch [...] Pritchett LPN)2208 (Given - Provider: Kristen Gan, IRNEA) 1110 (Given - Provider: Ana Salas, IRENA)2100 [...] Oral, STAT, 1 dose, On Thu08/15/22 at 2916 1502 (Given - Provid er: Mercedes Zapata RN) Reason for Visit (unrecogniz ed section and content) Reason Onset Date Comments Prior Authorization 01/21/2022 Reason Onset Date Comments Specialty Pharmacy Referral 02/11/2022 [facility] referral- no PA needed Specialty Diagnoses / Procedures Referred By Contac t Referred To Contact Hematology Diagnoses 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) Thrombocytopenia (HCC) Afua Umanzor MD [address] [place] [address] [facility] [address] [place] [address] Referral ID Status Reason Start Date Expiration Date V isits Requested Visits Authorized [id number] Authorized 01/17/2022 01/17/2023 3 3 Reason Comments Blood test Reason Comments Monitoring/follow-up Fatigue nausea and vomiting Reason Comments AIHA On cellcept Cirrhosis/other liver disease Reason Comments New patient, to establish relationship Specialty Diagnoses / Procedures Referred By Contac t Referred To Contact Gastroenterology Diagnoses Alcoholic cirrhosis of liver without ascites (HCC) Tanvir Black MD [address] [place] [address] [facility] [address] [place] [address] Referral ID Status Reason Start Date Expiration Date V isits Requested Visits Authorized [id number] Authorized 05/06/2022 05/06/2023 3 3 Reason Comments [...] INTERVENTIONAL RADIOLOGY PROCEDURE SERVICE Marcello Ibanez MD [address] [place] [address] [facility] [address] [place] [address] Referral ID Status Reason Start Date Expiration Date V isits Requested Visits Authorized [id number] Authorized 10/27/2022 10/27/2023 [address] angio abd aorta runoff, r/o PAD, - DVT, normal Reason Comments ANGIO RLE 04/26 Pain level 4/10 Care Team (unrecognized sect ion and content) Energy Projects Lead Relationship Specialty Start Date End Date Theo Burks MD [address] [place] [address] [address] [place], [place] [id number] PCP - General Family Medicine 08/25/22 Energy Projects Lead Relationship Specialty Start Date End Date Theo Burks MD [address] [place] [address] [address] [place], [place] [id number] PCP - General Family Medicine 08/25/22 Energy Projects Lead Relationship Specialty Start Date End Date Theo Burks MD [address] [place] [address] [address] [place], [place] [id number] PCP - General Family Medicine 08/25/22 Energy Projects Lead Relationship Specialty Start Date End Date Theo Burks MD [address] [place] [address] [place] [address] PCP - General Family Medicine 08/25/22 Energy Projects Lead Relationship Specialty Start Date End Date Theo Burks MD [address] [place] [address] [address] [place], [place] [id number] PCP - General Family Medicine 08/25/22 Abbey Alvarez MD [address] [place] [address] [place] [address] Fellow Gastroenterology 09/13/22 Saskia Madison, [employer] CAPTAIN [address] [place] [address] [place] [address] [employer] [facility] 09/13/22 Energy Projects Lead Relationship Specialty Start Date End Date Theo Burks MD [address] [place] [address] [place] [address] PCP - General Family Medicine 08/25/22 Abbey Alvarez MD [address] [place] [address] [place] [address] Fellow Gastroenterology 09/13/22 Saskia Madison, [employer] CAPTAIN [address] [place] [address] [place] [address] [employer] Gastroenter[facility] 09/13/22 Energy Projects Lead Relationship Specialty Start Date End Date Theo Burks MD [address] [place] [address] [place] [address] PCP - General Family Medicine 08/25/22 Abbey Alvarez MD [address] [place] [address] [place] [address] Fellow Gastroenterology 09/13/22 Saskia Madison, [employer] CAPTAIN [address] [place] [address] [place] [address] [employer] Gastroenterology 09/13/22 Energy Projects Lead Relationship Specialty Start Date End Date Theo Burks MD [address] [place] [address] [place] [address] PCP - General Family Medicine 08/25/22 Abbey Alvarez MD [address] [place] [address] [place] [address] Fellow Gastroenterology 09/13/22 Saskia Madison APRN-[employer]CE CAPTAIN [address] [place] [address] [place] [address] [employer] Gastroenter[facility] 09/13/22 Energy Projects Lead Relationship Specialty Start Date End Date Theo Burks MD [address] [place] [address] [place] [address] PCP - General Family Medicine 08/25/22 Abbey Alvarez MD [address] [place] [address] [place] [address] Fellow Gastroenterology 09/13/22 Saskia Madison APRN-[employer] CAPTAIN [address] [place] [address] [place] [address] [employer] Gastroenter[facility] 09/13/22 Energy Projects Lead Relationship Specialty Start Date End Date Theo Burks MD [address] [place] [address] [place] [address] PCP - General Family Medicine 08/25/22 Abbey Alvarez MD [address] [place] [address] [place] [address] Fellow Gastroenterology 09/13/22 Saskia Madison APRN-[employer] CAPTAIN [address] [place] [address] [place] [address] [employer] Gastroenterology 09/13/22 Energy Projects Lead Relationship Specialty Start Date End Date Theo Burks MD [address] [place] [address] [place] [address] PCP - General Family Medicine 08/25/22 Abbey Alvarez MD [address] [place] [address] [place] [address] Fellow Gastroenterology 09/13/22 Saskia Madison 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 [address] [place] [address] [place] [address] [employer] Gastroenterology 09/13/22 Energy Projects Lead Relationship Specialty Start Date End Date Theo Burks MD [address] [place] [address] [place] [address] PCP - General Family Medicine 08/25/22 Abbey Alvarez MD [address] [place] [address] [place] [address] Fellow Gastroenterology 09/13/22 Saskia Madison, 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 [address] [place] [address] [place] [address] [employer] Gastroenterology 09/13/22 Energy Projects Lead Relationship Specialty Start Date End Date Theo Burks MD [address] [place] [address] [place] [address] PCP - General Family Medicine 08/25/22 Abbey Alvarez MD [address] [place] [address] [place] [address] Fellow Gastroenterology 09/13/22 Saskia Madison, 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 [address] [place] [address] [place] [address] [employer] Gastroenterology 09/13/22 Energy Projects Lead Relationship Specialty Start Date End Date Theo Burks MD [address] [place] [address] [place] [address] PCP - General Family Medicine 08/25/22 Abbey Alvarez MD [address] [place] [address] [place] [address] Fellow Gastroenterology 09/13/22 Saskia Madison, 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 [address] [place] [address] [place] [address] [employer] Gastroenterology 09/13/22 Marcello Ibanez MD [address] [place] [address] [place] [address] Fellow Gastroenterology 11/08/22 Energy Projects Lead Relationship Specialty Start Date End Date Theo Burks MD [address] [place] [address] [place] [address] PCP - General Family Medicine 08/25/22 Abbey Alvarez MD [address] [place] [address] [place] [address] Fellow Gastroenterology 09/13/22 Saskia Madison, 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 [address] [place] [address] [place] [address] [employer] Gastroenterology 09/13/22 Marcello Ibanez MD [address] [place] [address] Fellow Gastroenterology 11/08/22 Energy Projects Lead Relationship Specialty Start Date End Date Theo Burks MD [address] [place] [address] [place] [address] PCP - General Family Medicine 08/25/22 Abbey Alvarez MD [address] [place] [address] [place] [address] Fellow Gastroenterology 09/13/22 Saskia Madison, 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 [address] [place] [address] [place] [address] [employer] Gastroenterology 09/13/22 Marcello Ibanez MD [address] [place] [address] Fellow Gastroenterology 11/08/22 Energy Projects Lead Relationship Specialty Start Date End Date Thoe Burks MD [address] [place] [address] [place] [address] PCP - General Family Medicine 08/25/22 Abbey Alvarez MD [address] [place] [address] [place] [address] Fellow Gastroenterology 09/13/22 Saskia Madison APRN-[employer] CAPTAIN [address] [place] [address] [place] [address] [employer] Gastroenterology 09/13/22 Marcello Ibanez MD [address] [place] [address] Fellow Gastroenterology 11/08/22 Energy Projects Lead Relationship Specialty Start Date End Date Theo Burks MD [address] [place] [address] [place] [address] PCP - General Family Medicine 08/25/22 Abbey Alvarez MD [address] [place] [address] [place] [address] Fellow Gastroenterology 09/13/22 Saskia Madison, [employer] CAPTAIN [address] [place] [address] [place] [address] [employer] Gastroenterology 09/13/22 Marcello Ibanez MD [address] [place] [address] Fellow Gastroenterology 11/08/22 Energy Projects Lead Relationship Specialty Start Date End Date Theo Burks MD [address] [place] [address] [place] [address] PCP - General Family Medicine 08/25/22 Abbey Alvarez MD [address] [place] [address] [place] [address] Fellow Gastroenterology 09/13/22 Saskia Madison APRN-[employer] FORCE CAPTAIN [address] [place] [address] [place] [address] [employer] Gastroenterology 09/13/22 Marcello Ibanez MD [address] [place] [address] Fellow Gastroenterology 11/08/22 Energy Projects Lead Relationship Specialty Start Date End Date Theo Burks MD [address] [place] [address] [place] [address] PCP - General Family Medicine 08/25/22 Abbey Alvarez MD [address] [place] [address] [place] [address] Fellow Gastroenterology 09/13/22 Saskia Madison, 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 [address] [place] [address] [place] [address] [employer] Gastroenterology 09/13/22 Marcello Ibanez MD [address] [place] [address] Fellow Gastroenterology 11/08/22 Energy Projects Lead Relationship Specialty Start Date End Date Theo Burks MD [address] [place] [address] [place] [address] PCP - General Family Medicine 08/25/22 Abbey Alvarez MD [address] [place] [address] [place] [address] Fellow Gastroenterology 09/13/22 Saskia Madison, 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 [address] [place] [address] [place] [address] [employer] Gastroenterology 09/13/22 Marcello Ibanez MD [address] [place] [address] Fellow Gastroenterology 11/08/22 Energy Projects Lead Relationship Specialty Start Date End Date Theo Burks MD [address] [place] [address] [place] [address] PCP - General Family Medicine 08/25/22 Abbey Alvarez MD [address] [place] [address] [place] [address] Fellow Gastroenterology 09/13/22 Saskia Madison APRN-DAYAMI [address] [place] [address] [place] [address] [employer] Gastroenterology 09/13/22 Marcello Ibanez MD [address] [place] [address] Fellow Gastroenterology 11/08/22 Energy Projects Lead Relationship Specialty Start Date End Date Theo Burks MD [address] [place] [address] [place] [address] PCP - General Family Medicine 08/25/22 Abbey Alvarez MD [address] [place] [address] [place] [address] Fellow Gastroenterology 09/13/22 Saskia Madison APRN-[employer] FORCE CAPTAIN [address] [place] [address] [place] [address] [employer] Gastroenterology 09/13/22 Marcello Ibanez MD [address] [place] [address] Fellow Gastroenterology 11/08/22 Energy Projects Lead Relationship Specialty Start Date End Date Theo Burks MD [address] [place] [address] [place] [address] PCP - General Family Medicine 08/25/22 Abbey Alvarez MD [address] [place] [address] [place] [address] Fellow Gastroenterology 09/13/22 Saskia Madison APRN-[employer] CAPTAIN [address] [place] [address] [place] [address] [employer] Gastroenterology 09/13/22 Marcello Ibanez MD [address] [place] [address] Fellow Gastroenterology 11/08/22 Energy Projects Lead Relationship Specialty Start Date End Date Theo Burks MD [address] [place] [address] [place] [address] PCP - General Family Medicine 08/25/22 Abbey Alvarez MD [address] [place] [address] [place] [address] Fellow Gastroenterology 09/13/22 Saskia Madison APRN-[employer] FOR[employer] CAPTAIN [address] [place] [address] [place] [address] [employer] Gastroenterology 09/13/22 Marcello Ibanez MD [address] [place] [address] Fellow Gastroenterology 11/08/22 Energy Projects Lead Relationship Specialty Start Date End Date Theo Burks MD [address] [place] [address] [place] [address] PCP - General Family Medicine 08/25/22 Abbey Alvarez MD [address] [place] [address] [place] [address] Fellow Gastroenterology 09/13/22 Saskia Madison APRN-[employer] CAPTAIN [address] [place] [address] [place] [address] [employer] Gastroenterology 09/13/22 Marcello Ibanez MD [address] [place] [address] Fellow Gastroenterology 11/08/22 Energy Projects Lead Relationship Specialty Start Date End Date Theo Burks MD [address] [place] [address] [place] [address] PCP - General Family Medicine 08/25/22 Abbey Alvarez MD [address] [place] [address] [place] [address] Fellow Gastroenterology 09/13/22 Saskia Madison APRN-[employer] FOR[employer] CAPTAIN [address] [place] [address] [place] [address] [employer] Gastroenterology 09/13/22 Marcello Ibanez MD [address] [place] [address] Fellow Gastroenterology 11/08/22 Energy Projects Lead Relationship Specialty Start Date End Date Theo Burks MD [address] [place] [address] [place] [address] PCP - General Family Medicine 08/25/22 Abbey Alvarez MD [address] [place] [address] [place] [address] Fellow Gastroenterology 09/13/22 Saskia Madison APRN-[employer] FOR[employer] CAPTAIN [address] [place] [address] [place] [address] [employer] Gastroenterology 09/13/22 Marcello Ibanez MD [address] [place] [address] Fellow Gastroenterology 11/08/22 Energy Projects Lead Relationship Specialty Start Date End Date Theo Burks MD [address] [place] [address] [place] [address] PCP - General Family Medicine 08/25/22 Abbey Alvarez MD [address] [place] [address] [place] [address] Fellow Gastroenterology 09/13/22 Saskia Madison APRN-[employer] FORCE CAPTAIN [address] [place] [address] [place] [address] [employer] Gastroenterology 09/13/22 Marcello Ibanez MD [address] [place] [address] Fellow Gastroenterology 11/08/22 Energy Projects Lead Relationship Specialty Start Date End Date Theo Burks MD [address] [place] [address] [place] [address] PCP - General Family Medicine 08/25/22 Abbey Alvarez MD [address] [place] [address] [place] [address] Fellow Gastroenterology 09/13/22 Saskia Madison APRN-[employer] FORCE CAPTAIN [address] [place] [address] [place] [address] [employer] Gastroenterology 09/13/22 Marcello Ibanez MD [address] [place] [address] Fellow Gastroenterology 11/08/22 Energy Projects Lead Relationship Specialty Start Date End Date Theo Burks MD [address] [facility] [place] [address] PCP - General Family Medicine 08/25/22 Abbey Alvarez MD [address] [place] [address] [place] [address] Fellow Gastroenterology 09/13/22 Saskia Madison, [employer] CAPTAIN [address] [place] [address] [place] [address] [employer] Gastroenterology 09/13/22 Marcello Ibanez MD [address] [place] [address] [place] [address] Fellow Gastroenterology 11/08/22 Energy Projects Lead Relationship Specialty Start Date End Date Josiane Mccullough MD [address] [place] [address] PCP - General Family Medicine 07/18/13 Josiane Mccullough MD [address] [place] [address] 07/18/13 Energy Projects Lead Relationship Specialty Start Date End Date Theo Burks MD [address] [place] [address] [place] [address] PCP - General Family Medicine 08/25/22 Abbey Alvarez MD [address] [place] [address] [place] [address] Fellow Gastroenterology 09/13/22 Saskia Madison 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 [address] [place] [address] [place] [address] [employer] Gastroenterology 09/13/22 Marcello Ibanez MD [address] [place] [address] Fellow Gastroenterology 11/08/22 Energy Projects Lead Relationship Specialty Start Date End Date Loreta Cummings APRN-[employer] CAPTAIN [address] [facility] [address] [place] [address] PCP - General Emergency Medicine 04/21/24 Energy Projects Lead Relationship Specialty Start Date End Date Loreta Cummings APRN-[employer] CAPTAIN [address] [facility] [address] [place] [address] PCP - General Emergency Medicine 04/21/24 Energy Projects Lead Relationship Specialty Start Date End Date Cristina Chung MD [address] [place] [phone] PCP - General Family Medicine 01/13/25 Evelio Carr DO [address] [place] [address] Referring Physician Pain Medicine 01/13/25 Energy Projects Lead Relationship Specialty Start Date End Date Cristina Chung MD [address] [place] [phone] PCP - General Family Medicine 01/13/25 Evelio Carr DO [address] [place] [address] Referring Physician Pain Medicine 01/13/25 Source Comments (unrecognize d section and content) In the event this informatio n is protected by the [facility] Confidentiality of Alcohol and Drug Abuse Patient Records regulations: The Federal rules restrict any use of the information to criminally investigate or prosecute any alcohol or drug abuse patient.[facility] (unrecognized sect ion and content) No Status [...] section and content) DATE CREATED AUTHOR 01/01/2024 [facility] DATE CREATED AUTHOR AUTHOR'S ORGANIZ ATION 02/21/2024 [facility] DATE CREATED AUTHOR AUTHOR'S ORGANIZ ATION 03/04/2024 [facility] DATE CREATED AUTHOR AUTHOR'S ORGANIZ ATION 03/05/2024 [facility] DATE CREATED AUTHOR AUTHOR'S ORGANIZ ATION 03/11/2024 [facility] DATE CREATED AUTHOR AUTHOR'S ORGANIZ ATION 04/11/2024 [facility] DATE CREATED AUTHOR AUTHOR'S ORGANIZ ATION 04/27/2024 [facility] DATE CREATED AUTHOR AUTHOR'S ORGANIZ ATION 05/07/2024 [facility] DATE CREATED AUTHOR AUTHOR'S ORGANIZ ATION 05/26/2024 [facility] DATE CREATED AUTHOR AUTHOR'S ORGANIZ ATION 05/27/2024 [facility] DATE CREATED AUTHOR AUTHOR'S ORGANIZ ATION 05/28/2024 [facility] DATE CREATED AUTHOR AUTHOR'S ORGANIZ ATION 06/01/2024 [facility] DATE CREATED AUTHOR AUTHOR'S ORGANIZ ATION 07/11/2024 [facility] DATE CREATED AUTHOR AUTHOR'S ORGANIZ ATION 07/13/2024 [facility] DATE CREATED AUTHOR AUTHOR'S ORGANIZ ATION 07/17/2024 [facility] DATE CREATED AUTHOR AUTHOR'S ORGANIZ ATION 08/20/2024 [facility] DATE CREATED AUTHOR AUTHOR'S ORGANIZ ATION 09/21/2024 [facility] DATE CREATED AUTHOR AUTHOR'S ORGANIZ ATION 09/24/2024 [facility] DATE CREATED AUTHOR AUTHOR'S ORGANIZ ATION 10/03/2024 [facility] DATE CREATED AUTHOR AUTHOR'S ORGANIZ ATION 11/13/2024 [facility] DATE CREATED AUTHOR AUTHOR'S ORGANIZ ATION 11/17/2024 [facility] DATE CREATED AUTHOR AUTHOR'S ORGANIZ ATION 11/22/2024 [facility] DATE CREATED AUTHOR AUTHOR'S ORGANIZ ATION 12/12/2024 [facility] DATE CREATED AUTHOR AUTHOR'S ORGANIZ ATION 12/20/2024 [facility] DATE CREATED AUTHOR AUTHOR'S ORGANIZ ATION 01/14/2025 [facility] DATE CREATED AUTHOR AUTHOR'S ORGANIZ ATION 01/25/2025 [facility] FOR RECORDS PERTAINING TO PATIENTS WHO [...] BE BASED ON THE PRIMARY CLINICAL RECORDS. [facility] [employer] provides no warranty or guarantee of the accuracy or completeness of information in this document."
[2025-03-04] MEDS: KETOROLAC TROMETHAMINE 30 MG/ML VIAL IVP (11:52)
[2025-03-04 12:06] LABS: Basophils Percent Auto 0.5 % (0.2-2.0); Eosinophils Absolute Auto 0.1 10^3/uL (0.0-0.7); Eosinophils Percent Auto 2.3 % (0.9-7.0); Hematocrit 32.1 % (42.0-54.0); Hemoglobin 11.5 g/dL (14.0-18.0); Immature Granulocytes Abs Auto 0.08 10^3/uL (0.00-0.03); Immature Granulocytes Pct Auto 1.3 % (0.0-0.5); Lymphocytes Percent Auto 16.4 % (20.5-60.0); Mean Corpuscular HGB Conc 35.8 g/dL (29.9-35.2); Mean Corpuscular Hemoglobin 36.6 pg (25.9-34.0); Mean Corpuscular Volume 102.2 fL (80.0-94.0); Mean Platelet Volume 10.9 fL (9.5-13.5); Monocytes Percent Auto 16.6 % (1.7-12.0); Neutrophils Absolute Auto 3.7 10^3/uL (1.4-6.5); Neutrophils Percent Auto 62.9 % (43.0-75.0); Platelet Count 74 10^3/uL (150-450); Red Blood Count 3.14 10^6/uL (4.70-6.10); Red Cell Distribution Width 14.2 % (11.0-15.0)
[2025-03-04 12:15] LABS: Anion Gap 10.7; BUN Creatinine Ratio 15.6; Calcium 8.4 mg/dL (8.5-10.1); Carbon Dioxide 28.8 mmol/L (21.0-32.0); Chloride 103 mmol/L (98-107); Estimated GFR (African America >60 (>=60 mL/min/1.73m^2); Estimated GFR (Non-African Ame >60 (>=60 mL/min/1.73m^2); Glucose 127 mg/dL (74-106); Potassium 3.5 mmol/L (3.5-5.1); Sodium 139 mmol/L (136-145)
[2025-03-04 12:49] VITALS: BP 122/73; PULSE 72; TEMP 36.8; O2SAT 99
== END 2025-03-04 13:27 | disposition home or self-care (01) ==
PROVIDERS: Emergency Provider Emergency Medicine
DX: R60.0 Localized edema (principal); L53.9 Erythematous condition, unspecified; M79.604 Pain in right leg; L03.115 Cellulitis of right lower limb
CPT/HCPCS: 36415; 80048; 85025; 93971; 96374; 99285; J1885

== ENCOUNTER 2025-07-24 04:52 | Emergency (ER) | payer OTHER, SELFPAY ==
[2025-07-24 04:56] VITALS: BP 173/90; PULSE 74; TEMP 36.7; O2SAT 98; BMI 25.1
--- NOTE | 2025-07-24 05:13 | ED_ITS ---
HPI HPI - General Adult General Chief complaint: Extremity Problem, Nontraumatic Stated complaint: POSS INFECTION, LOWER EXTREMITY Time Seen by Provider: 07/24/25 05:01 Source: patient Mode of arrival: walk-in Limitations: no limitations History of Present Illness HPI narrative: 39-year-old male presents for right leg pain. He gives no history of injury but it is mostly in the right calf and goes down towards his right foot as well. He also has pain in the thigh area. He is worried about a blood clot. He has been on doxycycline for skin infection. He states he has gallbladder problems but nobody will take out his gallbladder because he is high risk. He has a history of alcoholic cirrhosis. Related Data Home Medications ?Medication ?Instructions ?Recorded ?Confirmed spironolactone 50 mg tablet 50 mg PO DAILY 08/12/23 ondansetron 4 mg disintegrating 4 mg PO TID 04/01/24 0 02/28/25 tablet Previous Rx's ?Medication ?Instructions ?Recorded cefdinir 300 mg capsule 600 mg (2 x 300 mg) PO DAILY #20 03/03/25 caps cefdinir 300 mg capsule 600 mg (2 x 300 mg) PO DAILY #30 03/03/25 caps doxycycline monohydrate 100 mg 100 mg PO BID 14 days # 28 caps 03/03/25 capsule doxycycline monohydrate 100 mg 100 mg PO BID 14 days # 28 caps 03/03/25 capsule magnesium oxide 400 mg (241.3 mg 400 mg PO BID #60 tab s 03/03/25 magnesium) tablet acetaminophen 300 mg-codeine 30 mg 1 tab PO Q6H PRN pa in 5 days #20 03/04/25 tablet tabs Allergies Allergy/AdvReac Type Severity Reaction Status Date / Time amoxicillin Allergy Severe Unknown Verified 07/24/25 05:02 Penicillins Allergy Severe Unknown Verified 07/24/25 05:02 perflutren (From [employer] Allergy Intermediate Muscle Pain Verified 07/24/25 05:02 Opioid HPI Opioid Management Most Recent Opioid Data: Last Pain Scale 9 Today, 04:56 Last ORT Total Score 4 02/28/25, 02:19 Last ORT Risk Category Moderate Risk 02/28/25, 02:19 Ur Phencyclidine Scrn, (NEGATIVE) Negative , 09:46 Review of Systems ROS Narrative A ten point review of systems is negative except as noted above. [facility] Medical History (Updated 07/24/25 @ 06:44 by Margarito Sanchez MD) Cellulitis ?L03.90 - Cellulitis, unspecified (ICD-10) Hyponatremia ?E87.1 - Hypo-osmolality and hyponatremia (ICD-10) Cellulitis of right leg ?L03.115 - Cellulitis of right lower limb (ICD-10) Liver problem ?K76.9 - Liver disease, unspecified (ICD-10) Peripheral vascular disease, unspecified ?I73.9 - Peripheral vascular disease, unspecified (ICD-10) Hyperammonemia ?E72.20 - Disorder of urea cycle metabolism, unspecified (ICD-10) Urinary tract infection ?N39.0 - Urinary tract infection, site not specified (ICD-10) Cellulitis of right leg ?L03.115 - Cellulitis of right lower limb (ICD-10) Hypertension ?I10 - Essential (primary) hypertension (ICD-10) Esophageal varices determined by endoscopy ?I85.00 - Esophageal varices without bleeding (ICD-10) Cellulitis of left leg ?L03.116 - Cellulitis of left lower limb (ICD-10) Fracture, jaw ?S02.609A - Fracture of mandible, unspecified, initial encounter for closed fracture (ICD-10) Immunosuppressed status ?D84.9 - Immunodeficiency, unspecified (ICD-10) Hyperbilirubinemia ?E80.6 - Other disorders of bilirubin metabolism (ICD-10) 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 Smoking status: Former smoker Do you use any of these nicotine containing products: smokeless tobacco Non-prescribed substance use: cannabis (any form) Non-prescribed substance use details: gummies Previous occupational history: [employer] Highest level of school completed/degree received: high school graduate Are you now , , , , never or living with a partner: never In a typical week, how many times do you talk on the telephone with family, friends, or neighbors: 3 or more times per week How often do you get together with friends or relatives: twice per week How often do you attend mandaen or gnosticist services: never Do you belong to any clubs or organizations such as mandaen groups unions, fraternal or athletic groups, or school groups: no Total score: 1 Score interpretation: A score of less than or equal to 1 indicates the most socially isolated. Little interest or pleasure in doing things: not at all Feeling down, depressed, or hopeless: not at all Feel stressed/tense/nervous/anxious/difficulty sleeping: to some extent Life stressor details: Pain in legs Do you think of yourself as: straight/heterosexual Gender Identity: male Exam Narrative Exam Narrative: Nurses note and vital signs reviewed General:The patient appears well and in no apparent distress.Patient is resting comfortably on cart. Skin:Warm, dry, no pallor noted.There is no rash noted. Head:Normocephalic, atraumatic Eye: Normal conjunctiva, no drainage Ears, Nose, Mouth, and Throat: oral mucosa is moist. Nares patent. Cardiovascular:Regular Rate and Rhythm Respiratory:Patient is in no distress, no accessory muscle use, lungs are clear to auscultation, no wheezing, rales or rhonchi Back:non-tender GI: Soft and nontender Musculoskeletal: His right leg is examined. He has no apparent swelling. He has what appears to be chronic discoloration of that lower leg, possibly from venous stasis. There is also an oval patch on his right calf which he states has been there for 4 months. 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 Neurological:A&O, normal speech Psychiatric:Cooperative Constitutional Vital Signs, click to edit/add: Last Vital Signs Temp 98.0 F 07/24/25 04:56 Pulse 74 07/24/25 04:56 Resp 17 07/24/25 04:56 BP 173/90 H 07/24/25 04:56 Pulse Ox 98 07/24/25 04:56 O2 Del Method Room Air 07/24/25 04:56 Course Vital Signs Vital signs: Vital Signs Temperature 98.0 F 07/24/25 04:56 Pulse Rate 74 07/24/25 04:56 Respiratory Rate 17 07/24/25 04:56 Blood Pressure 173/90 H 07/24/25 04:56 Pulse Oximetry 98 07/24/25 04:56 Oxygen Delivery Method Room Air 07/24/25 04:56 Temperature 98.0 F 07/24/25 04:56 Pulse Rate 74 07/24/25 04:56 Respiratory Rate 17 07/24/25 04:56 Blood Pressure 173/90 H 07/24/25 04:56 Pulse Oximetry 98 07/24/25 04:56 Oxygen Delivery Method Room Air 07/24/25 04:56 Medical Decision Making MDM Narrative Medical decision making narrative: Tests are ordered and the patient is signed out to Dr. Mistry at change of shift. Differential Diagnosis Differential Diagnosis: Cellulitis, DVT Lab Data Lab results reviewed: Yes I reviewed the patient's lab results Labs: Lab Results 07/24/25 Range/Units 05:30 WBC 3.7 L (4.0-11.0) 10^3/uL RBC 4.25 L (4.70-6.10) 10^6/uL Hgb 14.9 (14.0-18.0) g/dL Hct 41.5 L (42.0-54.0) % MCV 97.6 H (80.0-94.0) fL MCH 35.1 H (25.9-34.0) pg MCHC 35.9 H (29.9-35.2) g/dL RDW 14.3 (11.0-15.0) % Plt Count 75 L (150-450) 10^3/uL MPV 9.6 (9.5-13.5) fL Neut % (Auto) 61.8 (43.0-75.0) % Lymph % (Auto) 25.8 (20.5-60.0) % Upton % (Auto) 8.8 (1.7-12.0) % Eos % (Auto) 2.5 (0.9-7.0) % Baso % (Auto) 0.8 (0.2-2.0) % Neut # (Auto) 2.3 (1.4-6.5) 10^3/uL Lymph # (Auto) 0.9 L (1.2-3.8) 10^3/uL Upton # (Auto) 0.3 (0.3-0.8) 10^3/uL Eos # (Auto) 0.1 (0.0-0.7) 10^3/uL Baso # (Auto) 0.0 (0.0-0.1) 10^3/uL Abs Immat Gran (auto) 0.01 (0.00-0.03) 10^3/uL Imm/Tot Granulo (auto) 0.3 (0.0-0.5) % Sodium 139 (136-145) mmol/L Potassium 3.8 (3.5-5.1) mmol/L Chloride 104 (98-107) mmol/L Carbon Dioxide 27.9 (21.0-32.0) mmol/L Anion Gap 10.9 BUN 9.0 (7.0-18.0) mg/dL Creatinine 0.64 L (0.70-1.30) mg/dL Est GFR ( Amer) >60 (>=60 mL/min/1.73m^2) Est GFR (Non-Af Amer) >60 (>=60 mL/min/1.73m^2) BUN/Creatinine Ratio 14.1 Glucose 109 H (74-106) mg/dL Calcium 9.0 (8.5-10.1) mg/dL Total Bilirubin 2.9 H (0.2-1.0) mg/dL Direct Bilirubin 0.7 H* (0.0-0.2) mg/dL AST 87 H (15-37) U/L ALT 79 H (16-63) U/L Alkaline Phosphatase 110 (46-116) U/L Total Protein 7.8 (6.4-8.2) g/dL Albumin 3.9 (3.4-5.0) g/dL Globulin 3.9 g/dL Albumin/Globulin Ratio 1.0 Amylase 41 (25-115) U/L Lipase 35.0 (16.0-77.0) U/L Discharge Plan Discharge Patient Disposition: Still a Patient
[2025-07-24 05:40] LABS: Hematocrit 41.5 % (42.0-54.0); Hemoglobin 14.9 g/dL (14.0-18.0); Immature Granulocytes Abs Auto 0.01 10^3/uL (0.00-0.03); Immature Granulocytes Pct Auto 0.3 % (0.0-0.5); Lymphocytes Absolute Auto 0.9 10^3/uL (1.2-3.8); Mean Corpuscular HGB Conc 35.9 g/dL (29.9-35.2); Mean Corpuscular Hemoglobin 35.1 pg (25.9-34.0); Mean Corpuscular Volume 97.6 fL (80.0-94.0); Platelet Count 75 10^3/uL (150-450); Red Blood Count 4.25 10^6/uL (4.70-6.10); White Blood Count 3.7 10^3/uL (4.0-11.0)
[2025-07-24 05:55] LABS: Alanine Aminotransferase 79 U/L (16-63); Albumin Globulin Ratio 1.0; Albumin Level 3.9 g/dL (3.4-5.0); Alkaline Phosphatase 110 U/L (46-116); Anion Gap 10.9; Aspartate Amino Transferase 87 U/L (15-37); Blood Urea Nitrogen 9.0 mg/dL (7.0-18.0); Calcium 9.0 mg/dL (8.5-10.1); Carbon Dioxide 27.9 mmol/L (21.0-32.0); Chloride 104 mmol/L (98-107); Estimated GFR (African America >60 (>=60 mL/min/1.73m^2); Estimated GFR (Non-African Ame >60 (>=60 mL/min/1.73m^2); Globulin 3.9 g/dL; Glucose 109 mg/dL (74-106); Potassium 3.8 mmol/L (3.5-5.1); Sodium 139 mmol/L (136-145); Total Protein 7.8 g/dL (6.4-8.2)
[2025-07-24 05:59] LABS: Amylase 41 U/L (25-115); Lipase 35.0 U/L (16.0-77.0)
--- OUTSIDE RECORDS SUMMARY | 2025-07-24 06:40 | XMS_ITS | Clinical Summary ---
Author Organization [facility] Address [address] [place] [address] Care Team Providers Care Development Officer Name Role Phone Chantel Burks MD Primary Care Provider [phone] Abbey Alvarez MD Unavailable Saskia Madison APRN-IT SUPPORT MANAGER Unavailable [phone] Marcello Ibanez MD Unavailable Source Comments The following information is NOT included in Care Everywhere downloads:Psychiatric notes, ECG results, Cardiac Rehab notes, Pulmonary Function notes, data from [facility] (includes but not limited toPregnancy data,audiograms, eye exams, pre-surgical evaluation notes, well-child exam data).[facility] Allergies Active AllergyReactionsCriticalityNoted KxjeTgemprotWafpiiryzol85/30/2008 Medications MedicationSigDispense QuantityRefillsLast FilledStart DateEnd DateStatus esomeprazole (NEXIUM) 40 MG capsule Take 1 Capsule by mouth daily (30 minutes before breakfast). 28 Capsule ctive vitamin B-1 (THIAMINE) 100 MG tablet Indications:Alcoholic cirrhosis of liver without ascites (HCC)Take 1 Tablet by mouth daily. 90 Tablet ctive mupirocin (BACTROBAN) 2 % ointment Indications:Right leg swellingApply topically 3 times daily. Apply thin layer to affected area. 30 g 08/25/2022ctive famotidine (Pepcid) 20 MG tablet Take 1 Tablet by mouth 2 times daily. 60 Tablet ctive potassium chloride SA (K-DUR) 20 MEQ controlled release tablet Indications:HypokalemiaTake 1 Tablet by mouth daily. 10 Tablet 11/14/2022ctive diclofenac (VOLTAREN) 1 % GEL topical gel Indications:Rib painApply 4 g topically 4 times daily as needed for Pain (in leg joints). 1 Tube ctive spironolactone (Aldactone) 50 MG tablet Indications:Alcoholic cirrhosis of liver without ascites (HCC)Take 1 Tablet by mouth daily. 90 Tablet ctive hydrOXYzine pamoate (Vistaril) 25 MG capsule Indications:Alcoholic cirrhosis of liver without ascites (HCC)Take 1 Capsule by mouth 3 times daily as needed for Itching. 90 Capsule ctive lidocaine (LIDODERM) 5 % patch Indications:Rib painPlace 1 Patch on the skin every 24 hours. 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 Place 1 tablet under tongue as needed for nausea. 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 120 Tablet ctive lactulose 10 g/15 mL oral solution Indications:Iron deficiency anemia, unspecified iron deficiency anemia type, Alcoholic cirrhosis, unspecified whether ascites present (HCC),Alcoholic cirrhosis of liver without ascites (HCC)take 30 milliliter by mouth four times a day if needed -TITRATE TO 2 TO 3 BOWEL MOVEMENTS/DAY 946 mL ctive furosemide (LASIX) 20 MG tablet take 1 tablet by mouth once daily 90 Tablet 06/03/2024Active Active Problems ProblemNoted DateDiagnosed DateAlcoholic fatty liver10/31/2022Hyperbilirubinemia 10/31/2022lcoholic sqgivwfeq96/24/5392Rquzhhkknpar70/08/2022oagulation defect 01/16/2022Hemolytic zdijze2301/16/20227861Wkdywxxtwhvzjqak72/12/2022lcohol abuse 01/16/20223587Lxkukdcj93/04/2022Lumbar compression znvaucnw2013 Overview (08/25/2022): 2013 after a fall Vitamin D frtohuskxe07/23/2012HLA B27 (HLA B27 positive)10/29/2011Open fracture of angle of jaw03/15/2008 Resolved Problems ProblemNoted DateDiagnosed DateResolved DateAlcoholic cirrhosis of liver without fopdmee38Jaundice Immunizations ImmunizationAdministration DatesNext DueHep B (adult, 3-dose) or (adol 11-15, 2- dose) (CVX=43)08/14/2022Moderna Monovalent (12+ yrs) COVID-19 vaccine, mRNA, spike protein, LNP, PF, 100 mcg/0.5 mL (YYR=773)01/08/2021,12/11/2020 Social History Tobacco UseTypesPacks/DayYears UsedDateSmoking Tobacco: FormerCigarettes Smokeless Tobacco: CurrentChew Tobacco Cessation:Ready to Q uit: Not Asked; Counseling Given: Not Answered Humiliation, Afraid, Rape, and Kick questionnaireAnswerDate RecordedWithin the last year, have you been afraid of your partner or ex-partner?No02/27/2023Within the last year, have you been humiliated or emotionally abused in other ways by your partner or ex-partner?No02/27/2023Within the last year, have you been kicked, hit, slapped, or otherwise physically hurt by your partner or ex-partner?No02/27/2023Within the last year, have you been raped or forced to have any kind of sexual activity by your partner or ex-partner?No02/27/2023 Social Connection and Isolation PanelAnswerDate RecordedIn a typical week, how many times do you talk on the phone with family, friends, or neighbors?More than three times a week02/27/2023How often do you get together with friends or relatives?Patient fcahacri42/23/2023How often do you attend restoration or baptism services?Never02/27/2023o you belong to any clubs or organizations such as restoration groups, unions, fraExo Protein Bars or athletic groups, or school groups?No 02/27/2023How often do you attend meetings of the clubs or organizations you belong to?Never02/27/2023re you , , , , never , or living with a partner?Never dfarnlh6502/27/2023Overall Financial Resource Strain (CARDIA)AnswerDate RecordedHow hard is it for you to pay for the very basics like food, housing, medical care, and heating?Very hard02/27/2023 PHQ-2AnswerDate RecordedPHQ-2 [facility]dam[facility]596Final[facility] [place] [facility] - Occupational Stress QuestionnaireAnswerDate RecordedDo you feel stress - tense, restless, nervous, or anxious, or unable to sleep at night because your mind is troubled all the time - these days?Very much02/27/2023Exercise Vital SignAnswerDate RecordedOn average, how many days per week do you engage in moderate to strenuous exercise (like a brisk walk)?7 days02/27/2023On average, how many minutes do you engage in exercise at this level?120 min02/27/2023Hunger Vital SignAnswerDate RecordedWithin the past 12 months, you worried that your food would run out before you got the money to buymore.Patient declined 02/27/2023Within the past 12 months, the food you bought just didn't last and you didn't have money to get more.Sometimes true02/27/2023RAPARE - TransportationAnswerDate RecordedIn the past 12 months, has lack of transportation kept you from medical appointments or from getting medications?No 02/27/2023In the past 12 months, has lack of transportation kept you from meetings, work, or from getting things needed for daily living?No02/27/2023 Housing Stability Vital SignAnswerDate RecordedIn the last 12 months, was there a time when you were not able to pay the mortgage or rent on time?Yes02/27/2023 In the last 12 months, how many places have you lived?In the last 12 months, was there a time when you did not have a steady place to sleep or slept in ashelter (including now)?No02/27/2023EducationAnswerDate RecordedWhat is the highest level of school you have completed or the highest degree you have received?12th grade02/27/2023Sex and Gender InformationValueDate RecordedSex Assigned at BirthNot on fileLegal QjjNqoi38/04/2012 12:40 PM ESTGender Identity Not on fileSexual OrientationNot on file Last Filed Vital Signs Vital SignReadingTime TakenCommentsBlood Ytgvjvcz316/6708 9:38 AM EDT Fmang173304/21/2023 9:38 AM FPVZutqdozsntj73.5 ??C (97.7 ??F)04/21/2023 9:38 AM EDTRespiratory Ngcj816704/21/2023 9:38 AM EDTOxygen Lskclvbiqy409%04/21/2023 9:38 AM EDTInhaled Oxygen Concentration--Tpjvpz75.4 kg (172 lb 14.4 oz)04/21/2023 9:38 AM VINDhqfyj748.2 cm (5' 7 )04/21/2023 9:38 AM EDTBody Mass Index27.08 04/21/2023 9:38 AM EDT Plan of Treatment Health MaintenanceDue DateLast DoneCommentsTdap Urhiqwd4009/18/2002Pneumococcal Vaccine(s) (1 of 2 - PCV)2003Shingles (RZV) Vaccine (1 of 2)2003HPV Vaccine (optional start 27-45 years)2011COVID-19 Vaccine (3 - Moderna risk series)/12/2020, 12/11/2020Hepatitis B (HBV) Vaccine (2 of 3 - 19+ 3-dose series)312/04/2022Influenza Vaccine (#1)5Cholesterol HIV QsnnPxmjmclzz68/16/2024, 01/09/2022Hepatitis C Antibody Ghptspofs51/18/2024, 01/08/2022, 01/08/2022 Procedures Procedure NamePriorityDate/TimeAssociated DiagnosisCommentsHIV1 HIV2 AGAB SCRN Lab Add-On01/09/2022 3:48 AM EDT HEPATITIS C PYQTTEZNFnrnsqx64/04/2022 3:24 PM EDT FULL LIPID PROFILELab Add-On01/08/2022 3:24 PM EDT from Last 3 Months or Most Recently Relevant to Health Maintenance Results * HIV1 HIV2 AGAB SCRN (01/09/2022 3:48 AM EDT)ComponentValueRef RangeTest Method Analysis TimePerformed AtPathologist SignatureHIV Ag-Ab ScreenNon-Reactive Non-Vnkyimjv04/05/2022 8:45 PM EDFL[facility]AL[facility] PATHOLOGY LABORATORYComment:No laboratory evidence for HIV Infection. Negative result does not rule out acute HIV infection. Ifacute HIV infection is suspected, recommend ordering an HIV-1 RNA quanitification test.Specimen (Source)Anatomical Location / Laterality Collection Method / VolumeCollection TimeReceived TimeBloodBLOOD SPECIMEN / UnknownVenipuncture / Puukkco0201/09/2022 3:48 AM EDT01/09/2022 4:14 AM EDT Narrative [facility] - 01/09/2022 8:45 PM EDT HIV Information: ??[place] Rev. code 3701.243(E): This information has been disclosed to you from confidential records protected from disclosure by state law. ??You shall make no further disclosure of this information without the specific, written, and informed release of the individual to whom it pertains, or as otherwise permitted by state law. ??A general authorization for the release of medical or other information is not sufficient for the purpose of the release of HIV test results or diagnoses. Authorizing ProviderResult TypeResult StatusDarion Maria Eugeniaaugust GIMENEZ HIV/HEP/SYPH TESTINGFinal ResultPerforming OrganizationAddressCity/State/ZIP CodePhone Number [facility] [address] [place] [phone] * HEPATITIS C ANTIBODY (01/08/2022 3:24 PM EDT)ComponentValueRef RangeTest MethodAnalysis TimePerformed AtPathologist SignatureHepatitis C AbNonreactive Iqdfvabarjd58/04/2022 6:14 PM [facility] PATHOLOGY LABORATORYSpecimen (Source) Anatomical Location / LateralityCollection Method / VolumeCollection Time Received TimeBloodBLOOD SPECIMEN / UnknownVenipuncture / Actcpqz8601/08/2022 3:24 PM EDT01/08/2022 3:37 PM EDT Narrative Authorizing ProviderResult TypeResult StatusIvy ORDONEZ HIV/HEP/SYPH TESTINGFinal ResultPerforming OrganizationAddressCity/State/ZIP CodePhone Number [facility] [address] [place] [phone] * (ABNORMAL) FULL LIPID PROFILE (01/08/2022 3:24 PM EDT)ComponentValueRef Range Test MethodAnalysis TimePerformed AtPathologist QqodrhkaiUzzlwyymzaq724(H)<200 mg/dL01/09/2022 2:16 AM [facility] PATH[facility]Y NWLUZVEGDVBhkbllyaevwpo067(H)<151 mg/dL01/09/2022 2:16 AM [facility] PATHOLOGY LABORATORYHDL Lhuuqyyhikn50(L)>44 mg/dL01/09/2022 2:16 AM [facility] PATHOLOGY LABORATORYLDL zthzqkdepsc885(H)<111 mg/dL01/09/2022 2:16 AM [facility] PATHOLOGY LABORATORYNon-HDL Yqdpxxvakvn813(H) <130 mg/dL01/09/2022 2:16 AM [facility] PATHOLOGY LABORATORYChol/HDL Ratio11.37(H) <5.0005 2:16 AM [facility] PATHOLOGY LABORATORYLDL/HDL Ratio9.23(H)<3.57 01/09/2022 2:16 AM [facility] PATHOLOGY LABORATORYSpecimen (Source)Anatomical Location / LateralityCollection Method / VolumeCollection TimeReceived Time BloodBLOOD SPECIMEN / UnknownVenipuncture / Jwisssg0001/08/2022 3:24 PM EDT 01/08/2022 3:37 PM EDT Narrative Authorizing ProviderResult TypeResult StatusSalina Franks MD98 GENERAL LABFinal ResultPerforming OrganizationAddressCity/State/ZIP CodePhone Number S PATHOLOGY LABORATORY [address] [place] [phone] from Last 3 Months or Most Recently Relevant to Health Maintenance Insurance [address] [place] [phone] [place] [phone] * Guarantor: Shahriar Ralph TypeRelation to PatientDate of BirthPhone Billing LvljxpyNwgnaxwmucpgdUutf72/[birth year][address] [place] [address] [place] [phone] Advance Directives * Full Code (Latest Code Status on File) Date ActivatedDate InactivatedComments01/08/2022 7:50 AM01/17/2022 8:27 PMQuestion AnswerCommentsDocumentation of decision process for this code status:* Discussed with patient or surrogate.?? This is the code status chosen by the patient/surrogate. Care Teams Team MemberRelationshipSpecialtyStart DateEnd Date Chantel Burks MD [address] [facility] [place] [phone] PCP - GeneralFamily Bfascqko20/19/22 Abbey Alvarez MD [address] [facility] [facility] [address] FellowGastroenterology09/13/22 Saskia Madison APRN-IT SUPPORT MANAGER [address] [facility] [place] [address] APNGastroenterolog09/13/22 Marcello Ibanez MD [address] [facility] [address] FellowGastroenterology11/08/22
--- OUTSIDE RECORDS SUMMARY | 2025-07-24 06:40 | XMS_ITS | Clinical Summary ---
Author Organization [facility] Address [address] [place] [address] Care Team Providers Care Trip Motor Operator Name Role Phone Cristina Chung MD Primary Care Provider [phone] Evelio Carr DO Unavailable [phone] Social History Tobacco UseTypesPacks/DayYears UsedDateSmoking Tobacco: Never AssessedSex and Gender InformationValueDate RecordedSex Assigned at BirthNot on fileLegal Sex Male01/05/2023 8:33 PM EDTGender IdentityNot on fileSexual OrientationNot on file Last Filed Vital Signs Vital SignReadingTime TakenCommentsBlood Bzclmryj730/7806/ 12:00 PM EDT Pulse--Temperature--Respiratory Rate--Oxygen Saturation--Inhaled Oxygen Concentration--Apuove12.9 kg (169 lb 9.6 oz)02/17/2022 12:00 PM EDTHeight--Body Mass Index-- Plan of Treatment Health MaintenanceDue DateLast DoneCommentsCOVID-19 Vaccine (2024- season) /12/2020, 12/11/2020Influenza Vaccine (#1)2025Pneumococcal Vaccine: Pediatrics (0 to 5 Years) and At-Risk Patients (6 to 64 Years)Aged Out No longer eligible based on patient's age to complete this topic Insurance Care Teams Team MemberRelationshipSpecialtyStart DateEnd Cristina Chung MD [address] [place] [phone] PCP - GeneralFamily Medicine01/13/25 Evelio Carr DO [address] [place] [address] Referring PhysicianPain Medicine01/13/25
--- OUTSIDE RECORDS SUMMARY | 2025-07-24 06:40 | XMS_ITS | Clinical Summary ---
Author Organization [facility] Address [id number] [place] [address] Care Team Providers Care Lacrosse Coach Name Role Phone Lisa Lopez Nadia SORORITY SUPERVISOR-BAKERY SALES CLERK Primary Care Provide r Unavailable Allergies Active AllergyReactionsCriticalityNoted DateCommentsAmoxicillinHivesLow 02/02/2003PenicillinOther (See Comments)04/14/2024erflutren Lipid Microspheres pain04/14/2024 Definity contrast echocardiogram Medications MedicationSigDispense QuantityRefillsLast FilledStart DateEnd DateStatus cholecalciferol (VITAMIN D3) 50,000 units capsule Take 1 capsule (50,000 Units total) by mouth once a week.Active folic acid (FOLVITE) 1 mg tablet Take 1 tablet (1 mg total) by mouth in the morning.07/13/2023ctive furosemide (LASIX) 20 mg tablet Indications:edemaTake 1 tablet (20 mg total) by mouth daily Indications: visible water retention. Evening dose prn for swelling 20 mgActive lactulose (CHRONULAC) 10 gram/15 mL solution Take 15 mL (10 g total) by mouth 4 (four) times a day as needed.Active mycophenolate (CELLCEPT) 500 mg tablet Take 1 tablet (500 mg total) by mouth in the morning and 1 tablet (500 mg total) before bedtime. Patient stopped 12/2023 /patient stated he took it for blood disorder.Active naloxone (NARCAN) 4 mg/actuation spray,non-aerosol nasal spray Administer 1 spray (4 mg total) into each nostril as needed.10/28/2023ctive ondansetron ODT (ZOFRAN ODT) 4 mg disintegrating tablet Dissolve 1 tablet (4 mg total) on tongue every 8 (eight) hours as needed.Active oxyCODONE (ROXICODONE) 5 mg immediate release tablet Take 1 tablet (5 mg total) by mouth every 6 (six) hours as needed.01/27/2024 Active spironolactone (ALDACTONE) 50 mg tablet Indications:edema due to hepatic cirrhosisTake 1 tablet (50 mg total) by mouth in the morning. Indications: accumulation of fluid caused by cirrhosis of the liver. 50 mg evening dose as needed.01/20/2024ctive ursodioL (ACTIGALL) 300 mg capsule Take 1 capsule (300 mg total) by mouth in the morning and 1 capsule (300 mg total) before bedtime.Active pediatric multivitamin-iron tablet,chewable Chew 1 tablet and swallow in the morning.07/13/2023ctive doxycycline (MONODOX) 100 mg capsule TAKE 1 CAPSULE BY MOUTH TWICE DAILY FOR 14 DAYS04/16/2024ctive levoFLOXacin (LEVAQUIN) 750 mg tablet Take 1 tablet (750 mg total) by mouth in the morning.04/16/2024ctive phosphorated carbo,dext-fruct, (NAUSEA RELIEF ORAL) Take by mouth. unknownActive Active Problems ProblemNoted DateDiagnosed RvmfNdpllllqhm92/05/2024 Assessment & Plan (05/12/2024 10:03 AM EDT): we have ruled out AV malformation with the angiogram and there is no clear AV fistula, To me this is more available lymphedema I am referring him for complex decongestive therapy AVM (arteriovenous malformation)04/14/2024 Assessment & Plan (04/14/2024 9:26 AM EDT): RLE angio, possible intervention Abnormal stress test04/13/2024lcohol use disorder in xleqhmlhj63/07/2024Severe back pain04/13/20243041Cgqqezitcnqqim89/07/2024ependent edema04/13/2024iarrhea 04/13/2024Elevated blood pressure rnudncm6004/13/2024Elevated fasting glucose 04/13/2024Elevated INR04/13/2024Epigastric pain04/13/2024Esophageal varices 04/13/20249152Sucddrcx42/07/2024Iron deficiency hdvraj8004/13/2024HTN (hypertension) 04/13/20249807Dswcxadlpwc48/07/2024Liver cirrhosis, /07/2024Megaloblastic rlnqsh8404/13/20246468Cylmdu70/07/2024ortal venous ygqujfauaxit62/07/2024Varicose veins of legs04/13/2024Venous ulcer of right leg04/13/2024lcoholic fatty liver 10/31/2022lcoholic tedmzpyhu20/24/9649Lbdamdibrslewkyyfb70/24/2023Macrocytosis 02/12/2022lcohol abuse01/16/2022oagulation ujvgom0901/16/2022Hemolytic anemia 01/16/20228817Cwpjwzexfahmtjlj77/12/7807Kwqhwxma01/04/2022Lumbar compression oyrszpsk95/18/2013 Overview (04/13/2024): 2012 after a fall Elevated liver hliqmml5911/30/2011Vitamin D iuqszdbgxm76/23/2012Open fracture of angle of jaw03/15/2008 Family History Medical HistoryRelationNameCommentsAnesthesia problemsNeg Hx Social History Tobacco UseTypesPacks/DayYears UsedDateSmoking Tobacco: FormerCigarettes0.202018 - 2008Smokeless Tobacco: CurrentSnuff Tobacco Cessation:Ready to Q uit: Not Asked; Counseling Given: Not Answered Comments:2 tins per week Alcohol UseStandard Drinks/WeekCommentsNot Currently0 (1 standard drink = 0.6 oz pure alcohol)quit 2020Hunger ScreeningAnswerDate RecordedWithin the past 12 months we worried whether our food would run out before we got money to buy more.Never True05/12/2024Within the past 12 months the food we bought just didn't last and we didn't have money to get more.Never True05/12/2024Sex and Gender InformationValueDate RecordedSex Assigned at BirthNot on fileLegal Sex Male04/12/2024 8:47 AM EDTGender IdentityNot on fileSexual OrientationNot on file Last Filed Vital Signs Vital SignReadingTime TakenCommentsBlood Iitdllxe621/7609 9:36 AM EDT Ickpz686505/12/2024 9:36 AM XOHUxrsahqdrwh10.3 ??C (97.3 ??F)04/26/2024 1:26 PM EDTRespiratory Aejj497304/26/2024 1:26 PM EDTOxygen Upppmniegt65%05/12/2024 9:36 AM EDTInhaled Oxygen Concentration--Lwhfqz68 kg (163 lb 3.2 oz)05/12/2024 9:36 AM RVTBmnefk742.2 cm (5' 7 )05/12/2024 9:36 AM EDTBody Mass Index25.56005/12/2024 9:36 AM EDT Plan of Treatment Health MaintenanceDue DateLast DoneCommentsDepression Fktusobqf65/12/1997 DTaP,Tdap and Td Vaccines (1 - Tdap)2003COVID-19 Vaccine (3 - season)/12/2020, 12/11/2020Influenza Tfufndi6505/08/2025dult BMI Mtgycnkyg19Tobacco Laxfzrgrv81 Medical Devices Not on file Insurance Care Teams Team MemberRelationshipSpecialtyStart DateEnd Date Lisa Lopez APRN-BAKERY SALES CLERK PCP - GeneralEmergency Medicine04/21/24
--- OUTSIDE RECORDS SUMMARY | 2025-07-24 06:40 | XMS_ITS | Clinical Summary ---
Author Organization [facility] Address [address] [place] [address] Care Team Providers Care Cytogenetic Technologist Name Role Phone Victorino Naranjo MD Primary Care Provider Victorino Naranjo MD Unavailable [phone] Lisa Lopez DIRECTOR CLIENT SERVICES Unavailable Vic Ramos DIRECTOR CLIENT SERVICES Unavailable [phone] Allergies Active AllergyReactionsCriticalityNoted TepyCzbuscgoKmyufqdpfmz19/29/2003 Medications MedicationSigDispense QuantityRefillsLast FilledStart DateEnd DateStatus CHOLECALCIFEROL, VITAMIN D3, MISC Take 1,250 mcg by mouth one time a week.12/23/2023ctive folic acid 1 mg tablet Take 1 mg by mouth once daily.07/24/2023ctive furosemide (LASIX) 20 mg tablet Take 20 mg by mouth once daily.12/05/2022ctive lactulose 10 gram/15 mL solution Take 30 mL by mouth four times a day as needed.12/29/2023ctive mycophenolate Mofetil (CELLCEPT) 500 mg tablet Take 1 tablet by mouth every 12 hours.12/07/2023ctive naloxone 4 mg/actuation nasal spray (NARCAN) 1 [place] by nasal (alternating) route.10/28/2023ctive oxyCODONE ir (OXYIR) 5 mg capsule Take 5 mg by mouth every 6 hours as needed.02/18/2023ctive potassium chloride ER (KLOR-CON) 20 mEq tablet Take 1 tablet by mouth once daily.11/14/2022ctive spironolactone (ALDACTONE) 50 mg tablet Take 50 mg by mouth.12/16/2022ctive sulfamethoxazole-trimethoprim (BACTRIM DS) 800-160 mg per tablet Take 1 tablet by mouth.07/23/2023ctive ursodiol (ACTIGALL) 300 mg capsule Take 1 capsule by mouth every 12 hours.12/23/2023ctive Active Problems ProblemNoted DateDiagnosed DateFracture of transverse process of lumbar vertebra 08/24/2013Lumbar compression lioviwof72/18/2013Lumbar transverse process umobtxzt95/25/2013Elevated liver mgpymzt6111/30/2011Vitamin D deficiency-severe 10/30/2011HLA B27 (HLA B27 positive)10/29/2011ackache, gsgncjxtvhe15/30/2003 Back pain Resolved Problems ProblemNoted DateDiagnosed DateResolved DateAnkylosing jrqzvzvofkm65/30/2003 10/29/2011 Family History Medical HistoryRelationCommentsDiabetesFatherCancerPaternal Grandmotherunknown RelationStatusCommentsFatherAliveMotherAlivePaternal Grandmother Social History Tobacco UseTypesPacks/DayYears UsedDateSmoking Tobacco: FormerCigarettes 09/17/2006 - 09/17/2008 Tobacco Cessation:Counseling Given: Not Answered Comments:Once every couple of weeks Alcohol UseStandard Drinks/WeekCommentsYes6 (1 standard drink = 0.6 oz pure alcohol)Area Deprivation IndexAnswerDate RecordedNational Score (1-100), lower number is lower gtds076203/15/2025State Score (1-10), lower number is lower risk4 03/15/2025Data from: https://www.neighborhoodatlas.medicine.[facility].edu/. Last address used for [address] W03/15/2025Sex and Gender InformationValueDate RecordedSex Assigned at BirthNot on fileLegal SexMale 08/08/2012 9:52 AM ESTGender IdentityNot on fileSexual OrientationNot on file Last Filed Vital Signs Vital SignReadingTime TakenCommentsBlood Kjbpwozs645/8408/24/2013 10:04 AM EST Cyfmq5182 11:58 AM ESTTemperature--Respiratory Rate--Oxygen Saturation-- Inhaled Oxygen Concentration--Fireiz75.3 kg (155 lb)08/24/2013 10:04 AM EST Vassby042.2 cm (5' 7 )08/24/2013 10:04 AM ESTBody Mass Index24.28110/25/2012 10:04 AM EST Plan of Treatment DateTypeDepartmentCare Team (Latest Contact Info)Zoioknymupn52/20/2026 9:15 AM ESTOffice Visit Vascular Medicine [address] [place] [address] Ulysses Thao DO [address] [place] [address] Dx: PVD (peripheral vascular disease) [I73.9]; Right leg pain [M79.604]; Cellulitis of right leg [L03.115]; Non-pressure chronic ulcer of left lower leg, unspecified ulcer stage (HCC) [L97.929]Health MaintenanceDue DateLast Done CommentsAnxiety Iobxwycae29/12/2003Depression Hhtsxizxm46/12/2003HIV Screening 2002DTaP,Tdap,Td Vaccine (1 - Tdap)2003Pneumococcal Vaccine (1 of 2 - PCV)2003Shingrix Vaccine (1 of 2)2003HPV Vaccine (1 - Risk 3-dose SCDM series)2011Covid-19 Vaccine (3 - Moderna risk series)02/05/2021 01/08/2021, 12/11/2020Hepatitis B Vaccine (2 of 3 - 19+ 3-dose series)09/11/2022 08/14/2022Influenza Vaccine (#1)2025Lipid Lmwvaqqzn40/12/2021 Hepatitis C QagcvyugsBhgqxxqco76/04/2022, 01/08/2022, 10/29/2011 Goals GoalPatient Goal TypeAssociated ProblemsRecent ProgressPatient-Stated?Author Blood Pressure < 130/80 Blood Jnjyruju139/84(08/24/2013 10:04 AM EST)Stefan Christiansen MD Procedures Procedure NamePriorityDate/TimeAssociated DiagnosisCommentsHEP REMOTE PANEL BL Lhnxfbt1310/29/2011 12:56 PM EST Pain in finger Knee pain, bilateral from Last 3 Months or Most Recently Relevant to Health Maintenance Results * HEP REMOTE PANEL BL (10/29/2011 12:56 PM EST)ComponentValueRef RangeTest MethodAnalysis TimePerformed AtPathologist SignatureHep B Core Ab, Total NegativeNEGATCLEVELAND [facility] MAIN LABORATORYHep C Antibody IANegativeNEGAT [facility] MA[facility] LABORATORYHBsAgNegativeNEGATCWEXNER [facility]ENTER MAIN LABORATORYHep B Surface Ab, QualNegativeNEGATCWEXNER MEDICAL CENTER MAIN LAB[facility]ATORY Comment: ? A negative Hepatitis B Surface Antibody is indicative of: 1)no prior exposure to HBV, 2)lack of antibody response to an acute or chronic HBV infection, 3)lack of antibody response to HBV vaccination, or, 4)loss of immunity that followed either vaccination or infection. Specimen (Source)Anatomical Location / LateralityCollection Method / Volume Collection TimeReceived TimeBlood specimen (specimen)BLOOD SPECIMEN / Unknown 10/29/2011 12:56 PM EST10/29/2011 1:04 PM EST Narrative Authorizing ProviderResult TypeResult StatusFejarrell Art MDLABORATORYFinal ResultPerforming OrganizationAddressCity/State/ZIP CodePhone Number [facility] [address] [place] [address] from Last 3 Months or Most Recently Relevant to Health Maintenance Insurance MemberSubscriberPlan / Payer (Effective 2012-Present)Name:Edgardo Ralph Relation to Subscriber:SelfName:Edgardo Ralph Payer ID:Not on file Type:PPO Address: [address] [place] [id number] Care Teams Team MemberRelationshipSpecialtyStart DateEnd Date Victorino Naranjo MD [address] [address] PCP - GeneralFami Kqrdiivn09/11/13 Victorino Naranjo MD [address] [address] 07/18/13 Lisa Lopez, DIRECTOR CLIENT SERVICES [address] [address] Nurse Practitioner12/31/23 Vic Ramos, DIRECTOR CLIENT SERVICES [address] [place] [address] [facility]03/13/25
--- OUTSIDE RECORDS SUMMARY | 2025-07-24 06:43 | XMS_ITS | CCD ---
Author Organization 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 Name Role Phone Link, Colby Nicholson Primary Care Physician [phone] Unavailable Primary Care Provider Unavailabl e Unavailable Primary Care Provider Unavailabl e Unavailable Primary Care Provider Unavailabl e Theo Burks MD Primary Care Provider Abbey Alvarez MD Unavailable Saskia Day Unavailable Theo Burks MD Primary Care Provider Abbey Alvarez MD Unavailable Gricelda SILVESTRE, Saskia Unavailable [phone] Marcello Ibanez MD Unavailable Saskia Day Unavailable THEO BURKS Primary Care Physician Unavaila ble NONE, XXXX Primary Care Physician Unavailab Jarrod Nettles Unavailable Loreta Cummings Primary Care Physician Josiane Mccullough MD Primary Care Provider Josiane Mccullough MD Unavailable JOSIANE MCCULLOUGH Primary Care Unavailab MARGARET Justice Attending Unavailable Ella Gonzales Attending Unavailable Janet, Ella Polk Admitting Unavailable Loreta Cummings Referring Unavailable ELMER Gonzales-MONTY Polk Attending U navailable JERRELL GonzalesELLIOTT [place] Admitting U navailable [facility] [place] Attending U navailable [place], [facility] Ella [place]k Admitting U navailable [place], [facility] Ella Polk Attending U navailable [place], [facility] Ella Polk Attending U navailable [place], [facility] Ella [place]k Referring U navailable LORETA CUMMINGS Primary Care Unavailable JERZY, MOHAMED F Admitting Unavailable JERZY, MOHAMED F Attending Unavailable MAGED BOLTON Attending Unavailable LORETA CUMMINGS Primary Care Unavailable JERZY, MOHAMED F Attending Unavailable JERZY, MOHAMED F Referring Unavailable LORETA CUMMINGS Primary Care Unavailable Kavon Lu Attending Unavailable Tabitha, Kavon Admitting Unavailable Mario Evans Admitting Unavaila ble Mario Evans Attending Unavaila ble Sarmini, Mario Xiong Referring Unavaila THEO Ley Primary [...] Admitting Unavailable Loreta Cummings Primary Care Physician [phone] Kavon Lu Attending Unavailable Tabitha, Kavon Admitting Unavailable Vic Carrion Primary Care Physician Kavon Lu Attending Unavailable Mario Evans Referring Unavaila ble SarminiMario Talal Admitting Unavaila ble BryannaminMario montano Attending Unavaila ble SarminiMario Attending Unavaila ble Unavailable Primary Care Provider UnavailLoreta Coffman Primary Care Provide r Sarmini, Martin Talal Admitting Unavaila ble Sarmini, Martin Talal Attending Unavaila ble Sarmini, Martin Talal Referring Unavaila ble Adamowaura, Kavon Admitting Unavailable Adamowaura, Kavon Attending Unavailable BryannaminAngel montanoMartin Talal Attending Unavaila ble Marquesdarcy Ella Felicitas Admitting Unavailable Ella Gonzales Attending Unavailable Kristine Cummingsbeth Nadia Admitting Unavailable Loreta Cummings Attending Unavailable Francine Cummingszabeth L Admitting Unavailable Sarmini, Martin Taleduar Attending Unavaila ble Kristine Cummingsbeth L Attending Unavailable Kristine Cummingsbeth Nadia Attending Unavailable Kristine Cummingsbeth L Attending Unavailable Kristine Cummingsbeth L Admitting Unavailable Loreta Cummings Attending Unavailable Kristine Cummingsbeth L Referring Unavailable Vic Ramos Attending Unavailable Adamowicz, Kavon Attending Unavailable Adamowicz, Kavon Admitting Unavailable Adamowicz, Kavon Attending Unavailable Adamowicz, Kavon Admitting Unavailable Juliet MULTANI, [facility] Primary Care Provider [phone] Evelio Carr DO Unavailable [phone] KENN HICKEY Attending Unavailable EVELIO CARR Referring Unavailable Loreta Cummings CNP Unavailable Vic Ramos RN Unavailable [phone] Carrol, Martin Talal Admitting Unavaila ble Sarmini, Martin Henriqueal Attending Unavaila ble Carrol, Martin Henriqueal Referring Unavaila ble Evelio Carr Admitting Unavailable Evelio Carr Attending Unavailable Vic Ramos Referring Unavailable Vic Ramos Attending Unavailable Evelio Carr Admitting Unavailable Evelio Carr Attending Unavailable Evelio Carr Referring Unavailable Evelio Carr Attending Unavailable Evelio Carr Referring Unavailable Bryannamini, Martin Talal Admitting Unavaila ble Bryannamini, Martin Talal Attending Unavaila ble Sarmini, Martin Talal Referring Unavaila ble Keith Patricia Admitting Unavailable Keith Patricia Attending Unavailable Vic Ramos Admitting Unavailable Keith Patricia Attending Unavailable Vic Ramos Attending Unavailable Sosalberto, Vic Friedman Attending Unavailable Vic Ramos Attending Unavailable Loco, Sadie Attending Unavailable Loco, Sadie Admitting Unavailable Loco, Sadie Attending Unavailable Loco, Sadie Referring Unavailable Loco, Sadie Admitting Unavailable Loco, Sadie Attending Unavailable Rachel, Vic Friedman Referring Unavailable Loco, Sadie Admitting Unavailable Rachel, Vic Friedman Referring Unavailable Evelio Carr Admitting Unavailable Evelio Carr Attending Unavailable Vic Ramos Referring Unavailable Loco, Sadie Attending Unavailable Loco, Sadie Admitting Unavailable Sarmini, Martin Talal Admitting Unavaila ble Sarmini, Martin Talal Attending Unavaila ble Sarmini, Martin Talal Referring Unavaila ble Sarmini, Amrtin Talal Admitting Unavaila ble Sarmini, Martin Talal Attending Unavaila ble Sarmini, Martin Talal Referring Unavaila ble Allergies Allergy ClassificationReported Allergen(s)Allergy TypeDate of OnsetReaction(s) FacilityPenicillins (antibiotic) (2 sources)Amoxicillin; Translations: [amoxicillin]Drug AllergyUnknown (qualifier value)[facility])Perflutren; Translations: [perflutren]Drug AllergyBack [facility] (20 sources)Amoxicillin; Translations: [amoxicillin]Drug [id number] Unknown (qualifier value), [facility] (20 sources)Penicillin; Translations: [penicillin]Drug Rtqzipv86-07-5049Sikeu (See Comments)[facility] (1 source)Substance with penicillin structure and antibacterial mechanism of action (substance)Drug allergyUnknowWestern [facility] mPort Other (20 sources)Perflutren; Translations: [perflutren]Drug Ndpshai85-56-2176mrky [facility] (1 source)PERFLUTREN LIPID MICROSPHERES; Translations: [PERFLUTREN LIPID MICROSPHERES]Propensity to adverse reactions to drug (disorder)04-14-2024 [facility] (1 source)Iodinated Contrast MediaPropensity to adverse reactions to drug 03-61-6165eptgFdgEriyjgRetreat Doctors' [facility] Medications Current Medications MedicationDrug Class(es)DatesSig (Normalized)Sig (Original)acetaminophen 300 mg / codeine phosphate 30 mg oral tablet (1 source)Opioid AgonistStart: 03-06-2025 End: 32-79-8866jblu 1 tablet by mouth every six hours as needed for pain, then take 1 tablet by mouth every six hours as needed for painacetaminophen-codeine 300 mg-30 mg Tab 1 tab(s), Oral, q6hr for 5 day(s), TAKE 1 TABLET BY MOUTH EVERY 6 HOURS NEEDED FOR PAIN FOR 5 DAYS Start Date: 03/06/25 Stop Date: 03/11/25 Status: Ordered Repeat number: 1bifidobacterium-lactobacillus oral tablet (12 sources)Start: 64-48-8164azdkhxscdemyxll-lactobacillus oral tablet 1 tab(s), Oral, Daily, 90 tab(s), Refill(s) 0, [facility] #[id number], 170, cm, 04/29/24 9:16:00 EDT, Height/Length Dosing, 70.1, kg, 04/29/24 9:16:00 EDT, Weight Dosing Start Date: 04/29/24 Status: Orderedcarvedilol 6.25 mg oral tablet (15 sources)alpha-Adrenergic Melvin, beta-Adrenergic BlockerStart: 10-05-2024 take 1 tablet by mouth twice dailyCoreg 6.25 mg Tab 6.25 mg = 1 tab(s), Oral, BID, # 180 tab(s), Refills(s) 3, Pharmacy: [id number], 170, cm, 10/05/24 9:01:00 EST, Height/Length Dosing, 78.5, kg, 10/05/24 9:11:00 EST, Weight Dosing Start Date: 10/05/24 Status: Ordered Quantity: 180.0 Unit: tab(s) Repeat number: 4 Indications: Essential (primary) hypertension;Start: 06-09-2024 take 1 tablet by mouth twice dailyCoreg 6.25 mg Tab 6.25 mg = 1 tab(s), Oral, BID, # 60 tab(s), Refills(s) 3, Pharmacy: [id number], 170, cm, 06/09/24 13:35:00 EDT, Height/Length Dosing, 74.2, kg, 06/09/24 13:35:00 EDT, Weight Dosing Start Date: 06/09/24 Status: Orderedcefdinir 300 mg oral capsule (1 source)Cephalosporin AntibacterialStart: 15-95-7945ccdb 2 capsules by mouth every twenty-four hourscefdinir 300 mg Cap 600 mg = 2 cap(s), Oral, q24hr, # 30 cap(s), Refills(s) 0 Start Date: 03/06/25 Status: Ordered Quantity: 30.0 Unit: cap(s) Repeat number: 1cephalexin 500 mg oral capsule (9 sources)Cephalosporin AntibacterialStart: 09-21-2023 End: 78-80-4792attb 1 capsule by mouth every eight hoursKeflex 500 mg Cap 500 mg = 1 cap(s), Oral, q8hr, X 5 day(s), # 15 cap(s), Refills(s) 0, Pharmacy: [facility] #[id number], 170, cm, 09/21/23 14:28:00 EST, Height/Length Dosing, 70.1, kg, 09/21/23 14:27:00 EST, Weight Dosing Start Date: 09/21/23 Stop Date: 09/26/23 Status: OrderedStart: 08-25-2022 End: 30-00-4565bfxk 1 capsule by mouth four times dailycephALEXin (KEFLEX) 500 MG capsule Indications: Right leg swelling , Cellulitis, unspecified cellulitis site Take 1 Capsule by mouth 4 times daily for 7 days. 28 Capsule 0 08/25/2022 09/01/2022 ActiveStart: 08-15-2022 End: 66-94-7715drjv 1 capsule by mouth four times dailycephALEXin (KEFLEX) 500 MG capsule Take 1 Capsule by mouth 4 times daily for 7 days. 28 Capsule 0 08/22/2022 Activecholecalciferol 1.25 mg oral capsule (20 sources)Vitamin DStart: 58-86-1260qjmtgwgvhawefef 50,000 intl units oral capsule 1,250 mcg = 1 cap(s), Oral, q7day, # 12 cap(s), Refills(s) 1, Pharmacy: [facility] #[id number], 170, cm, 12/23/23 11:10:00 EDT, Height/Length Dosing, 70.3, kg, 12/23/23 11:10:00 EDT, Weight Dosing Start Date: 12/23/23 Status: Orderedtake 1 capsule by mouth every weekcholecalciferol (VITAMIN D3) 50,000 units capsule Take 1 capsule (50,000 Units total) by mouth oncea week. ActiveCHOLECALCIFEROL, VITAMIN D3, MISC (2 sources)Start: 20-45-4415ievt 1250 ug by mouth every weekCHOLECALCIFEROL, VITAMIN D3, MISC Take 1,250 mcg by mouth one time a week. 12/23/2023 Active Start: 35-62-1619pbtb 1250 ug by mouth every weekCHOLECALCIFEROL, VITAMIN D3, MISC Take 1,250 mcg by mouth one time a week. 0 12/23/2023 Activeclindamycin 300 mg oral capsule (20 sources)Lincosamide AntibacterialStart: 02-18-2023 End: 33-65-9427vkqq 1 capsule by mouth every six hoursclindamycin 300 mg oral cap 300 mg = 1 cap(s), Oral, q6hr, X 7 day(s), # 28 cap(s), Refills(s) 0, Ph [facility]acy: [facility] #[id number], 170, cm, 02/18/23 7:51:00 EDT, Height/Length Dosing, 77, kg, 02/18/23 7:51:00 EDT, Weight Dosing Start Date: 02/18/23 Stop Date: 02/25/23 Status: OrderedStart: 79-99-3856dvct 2 capsules by mouth four times dailyclindamycin 150 mg Cap 300 mg = 2 cap(s), Oral, QID, # 56 cap(s), Refills(s) 0, Pharmacy: [facility], 170.2, cm, 02/17/22 12:34:00 EDT, Height/Length Dosing, 78, kg, 02/17/22 12:34:00EDT, Weight Dosing Start Date: 02/17/22 Status: OrderedStart: 02-17-2022 End: 80-69-9051sarnwabsqrf (CLEOCIN) 150 MG capsule Take by mouth. 0 02/17/2022 08/15/2022 Discontinued (Therapy completed)diclofenac sodium 0.01 mg/mg topical gel (20 sources)Nonsteroidal Anti-inflammatory DrugStart: 77-54-6629frmbkrhpch (VOLTAREN) 1 % GEL topical gel Indications: Rib pain Apply 4 g topically 4 times daily as needed for Pain (in leg joints). 1 Tube 2 12/16/2022 ActiveStart: 01-15-2022 End: 99-30-5981xhvhnrdurj (VOLTAREN) 1 % GEL topical gel Apply 2 g topically 4 times daily. 50 g 0 01/17/2022 04/17/2022 Activedoxycycline monohydrate 100 mg oral capsule (11 sources)Tetracycline-class DrugStart: 03-06-2025 End: 13-23-7607lwzt 1 capsule by mouth once dailydoxycycline monohydrate 100 mg oral capsule 100 mg = 1 cap(s), Oral, Daily, X 14 day(s), # 14 cap(s), Refills(s) 0 Start Date: 03/06/25 Stop Date: 03/20/25 Status: Ordered Quantity: 14.0 Unit: cap(s) Repeat number: 1Start: 43-05-3992ajtz 1 capsule by mouth twice dailydoxycycline monohydrate 100 mg oral capsule TAKE 1 CAPSULE BY MOUTH TWICE DAILY FOR 14 DAYS Start Date: 04/29/24 Status: OrderedStart: 10-01-2022 End: 71-34-4083hcac 1 capsule by mouth twice dailydoxycycline (VIBRAMYCIN) 100 MG capsule Indications: Cellulitis, unspecified cellulitis site Take 1Capsule by mouth 2 times daily for 10 days. 20 Capsule 0 10/01/2022 10/11/2022 Active esomeprazole 40 mg delayed release oral capsule (20 sources)Proton Pump InhibitorStart: 41-70-8524vayx 1 capsule by mouth once daily 30 minutes before breakfastesomeprazole (NEXIUM) 40 MG capsule Take 1 Capsule by mouth daily (30 minutes before breakfast). 28Capsule 1 01/17/2022 ActiveStart: 65-91-3423Ljitw: 01-08-2022 End: 78-52-2506weex 40 mg intravenously twice daily40 mg, Intravenous Push, 2 TIMES DAILY, First dose (after last modification) on Thu01/10/22 at 2100,Until Discontinuedfamotidine 20 mg oral tablet (20 sources)Histamine-2 Receptor AntagonistStart: 13-45-7992cqhx 1 tablet by mouth twice dailyfamotidine (Pepcid) 20 MG tablet Take 1 Tablet by mouth 2 times daily. 60 Tablet 3 10/27/2022 Activefolic acid 1 mg oral tablet (20 sources)Start: 01-31-7338rzzi 1 tablet by mouth once dailyfolic acid 1 mg tablet Take 1 mg by mouth once daily. 07/24/2023 ActiveStart: 01-16-2022 End: 35-78-7990duhp 1 tablet by mouth in the morningfolic acid (FOLVITE) 1 mg tablet Take 1 tablet (1 mg total) by mouth in the morning. 07/13/2023 Active Start: 01-08-2022 End: 07-35-0727dwrk 1 mg intravenously once daily1 mg, Intravenous Push, DAILY, First dose on Thu01/08/22 at 1430, Until Discontinuedfurosemide 20 mg oral tablet (20 sources)Loop DiureticStart: 59-40-1921zfto 1 tablet by mouth once daily as needed for edemafurosemide 20 mg Tab = 1 tab(s), Oral, Daily, PRN Edema, Refills(s) 0 Start Date: 08/19/24 Status: Ordered Repeat number: 1Start: 08-25-2022 End: 10-09-9522gzqr 1 tablet by mouth once dailyfurosemide 20 mg Tab 20 mg = 1 tab(s), Oral, Daily, # 90 tab(s), Refills(s) 3, Pharmacy: [facility] #[id number], 170, cm, 04/29/24 9:16:00 EDT, Height/Length Dosing, 70.1, kg, 04/29/24 9:16:00 EDT, Weight Dosing Start Date: 04/29/24 Status: Orderedgabapentin 600 mg oral tablet (15 sources)Anti-epileptic AgentStart: 11-14-2024 End: 48-78-4155ywah 2 tablets by mouth three times dailygabapentin 600 mg Tab 1,200 mg = 2 tab(s), Oral, TID, X 30 day(s), # 180 tab(s), Refills(s) 0, Pharm acy: [facility] #[id number], 170, cm, 10/26/24 10:30:00 EST, Height/Length Dosing, 78.9, kg, 10/26/24 10:30:00 EST, Weight Dosing Start Date: 11/14/24 Stop Date: 12/14/24 Status: OrderedStart: 50-17-9553oajiftkmcg 300 mg Cap See Instructions, take per office provided instructions until you are taking 2 tablets three times per day, # 120 tab(s), Refills(s) 0, Pharmacy: [facility], 170, cm, 10/26/24 10:30:00 EST, Height/Length Dosing, 78.9, kg, 10/26/24 10:30:00 EST, Weight Dosing Start Date: 10/26/24 Status: OrderedStart: 14-55-8189onnd 1 capsule by mouth twice dailygabapentin 300 mg Cap 300 mg = 1 cap(s), Oral, BID, # 60 cap(s), Refills(s) 0, [id number], 170, cm, 07/24/23 7:59:00 EST, Height/Length Dosing, 73.5, kg, 07/24/23 7:59:00 EST, Weight Dosing Start Date: 07/24/23 Status: OrderedhydrOXYzine pamoate 25 mg oral capsule (20 sources)AntihistamineStart: 12-16-2022 End: 67-15-9912kuzp 1 capsule by mouth three times daily as neededhydrOXYzine pamoate (Vistaril) 25 MG capsule Indications: Alcoholic cirrhosis of liver without ascites (HCC) Take 1 Capsule by mouth 3 times daily as needed for Itching. 90 Capsule 3 02/09/2023 ActivehydrOXYzine HCl ActiveLactulose (20 sources)Osmotic LaxativeStart: 98-91-8123sofznveci (lactulose 10 g/15 mL Oral Syrup) lactulose (lactulose 10 g/15 mL Oral Syrup) Start Date:08/19/24 Status: OrderedStart: 58-83-3350byzz 30 mL by mouth four times dailylactulose 10 g/15 mL Oral Syrup See Instructions, TAKE 30 ML BY MOUTH FOUR TIMES DAILY, # 3,600 mL,Refills(s) 3, Pharmacy: [facility] #[id number], 170, cm, 05/12/24 15:39:00 EDT, Height/Length Dosing, 73, kg, 05/12/24 15:39:00 EDT, Weight Dosing Start Date: 05/31/24 Status: OrderedStart: 21-19-7979dmjv 20 g by mouth four times dailylactulose 10 g/15 mL Oral Syrup 20 gm = 30 mL, Oral, QID, # 3,600 mL, Refills(s) 1, Pharmacy: [facility] #[id number], 170, cm, 01/27/24 9:52:00 EDT, Height/Length Dosing, 74.6, kg, 01/27/24 9:52:00 EDT, Weight Dosing Start Date: 02/24/24 Status: OrderedStart: 13-70-4418mihh 20 g by mouth four times daily lactulose 10 g/15 mL Oral Syrup 20 gm = 30 mL, Oral, QID, # 480 mL, Refills(s) 0, Other (see comment) Start Date: 07/24/23 Status: OrderedStart: 04-24-2023 End: 65-80-4589cojimtqyw 10 g/15 mL oral solution Indications: Iron deficiency anemia, unspecified iron deficiencyanemia type , Alcoholic cirrhosis, unspecified whether ascites present (HCC) , Alcoholic cirrhosis of liver without ascites (HCC) take 30 milliliter by mouth four times a day if needed -TITRATE TO 2 TO 3 BOWEL MOVEMENTS/DAY 946 mL 3 08/27/2023 ActiveStart: 08-14-2022 End: 63-85-3312ddwqhdplv 20 g/30 mL SOLN oral solution Indications: Iron deficiency anemia, unspecified iron deficiency anemia type , Alcoholic cirrhosis, unspecified whether ascites present (HCC) , Alcoholic cirrhosis of liver without ascites (HCC) Take 30 mL by mouth 4 times daily as needed. Titrate 2-3 bowel movements/day 946 mL 3 02/09/2023 04/24/2023 DiscontinuedStart: 81-23-6639Suzfo: 01-15-2022 End: 51-70-6293twvw 30 mL by mouth twice dailylactulose 20 g/30 mL SOLN oral solution Indications: Alcoholic cirrhosis of liver without ascites (HCC) Take 30 mL by mouth 2 times daily. 450 mL 3 08/08/2022 08/14/2022 Discontinued (Dose adjustment)Start: 01-09-2022 End: g, NG Tube, 2 TIMES DAILY, First dose (after last modification) on Rachel 01/09/22 at 2100, Until DiscontinuedStart: 01-08-2022 End: g, Oral, 3 TIMES DAILY, First dose on Thu01/08/22 at 1430, Until Discontinuedtake 15 mL by mouth four times daily as neededlactulose (CHRONULAC) 10 gram/15 mL solution Take 15 mL (10 g total) by mouth 4 (four) times a day as needed. ActiveLactulose 10 GM/15ML Oral for 7 Days Active levoFLOXacin 750 mg oral tablet (8 sources)Quinolone AntimicrobialStart: 01-29-8610awub 1 tablet by mouth once dailylevofloxacin 750 mg Tab TAKE 1 TABLET BY MOUTH DAILY FOR 14 DAYS Start Date: 04/29/24 Status: Orderedlidocaine 0.05 mg/mg medicated patch (20 sources)Antiarrhythmic, Amide Local AnestheticStart: 43-37-9997mzwztfanx Top 5% film Patch 1 patch(es), Topical, Daily, 30 patch(es), Refill(s) 0, apply 12 hours on and 12 hours off daily remove patches after 12 hours may substitute for 4 % patches if insurance coverage issue, [facility] #[id number], 170, cm, 08/26/23 9:52:00 EST, Height/Length Dosing, 68.5, kg, 08/26/23 9:52:00 EST, Weight Dosing Start Date: 08/26/23 Status: OrderedStart: 21-94-9568hrfqy 28.5 g topically twice dailylidocaine 3% topical gel See Instructions, 28.5 gm, Refill(s) 0, Topical BID apply a thin film to the affected areas may substitute for 2 % if this is not available, [facility] #[id number], 170, cm, 08/26/23 9:52:00 EST, Height/Length Dosing, 68.5, kg, 08/26/23 9:52:00 EST, Weight Dosing Start Date: 08/26/23 Status: OrderedStart: 12-15-2022 End: 83-84-5679aream 1 dose transdermal route every twenty-four hourslidocaine (LIDODERM) 5 % patch Indications: Rib pain Place 1 Patch on the skin every 24 hours. 10 Patch 3 03/06/2023 Activemagnesium citrate (10 sources)Start: 98-61-3706ckhdsvbfw citrate Oral, Refill(s) 0, Constipation Start Date: 08/19/24 Status: OrderedStart: 74-38-0034wbdhvfajs citrate Oral, Refill(s) 0 Start Date: 08/19/24 Status: Orderedmagnesium oxide 400 mg oral tablet (1 source)Start: 03-06-2025 End: 44-37-8258hxzi 1 tablet by mouth twice dailymagnesium oxide 400 mg Tab 400 mg = 1 tab(s), Oral, BID, X 10 day(s), # 10 tab(s), Refills(s) 0 Start Date: 03/06/25 Stop Date: 03/16/25 Status: Ordered Quantity: 10.0 Unit: tab(s) Repeat number: 1meloxicam 7.5 mg oral tablet (6 sources)Nonsteroidal Anti-inflammatory DrugStart: 24-02-9666mjph 1 tablet by mouth once daily at mealtimemeloxicam 7.5 mg Tab See Instructions, TAKE 1 TABLET BY MOUTH DAILY TAKE WITH FOOD AND SPARINGLY, #30 tab(s), Refills(s) 2, Pharmacy: [facility] #[id number], 170, cm, 05/12/24 15:39:00 EDT, Height/Length Dosing, 73, kg, 05/12/24 15:39:00 EDT, Weight Dosing Start Date: 05/23/24 Status: OrderedStart: 63-45-3260cstb 1 tablet by mouth once daily at mealtimemeloxicam 7.5 mg Tab 7.5 mg = 1 tab(s), Oral, Daily, take with food and sparingly, # 30 tab(s), Refills(s) 0, Pharmacy: [facility] #[id number], 170, cm, 04/29/24 9:16:00 EDT, Height/Length Dosing, 70.1, kg, 08/23/24 9:16:00 EDT, Weight Dosing Start Date: 04/29/24 Status: OrderedMilk thistle extract (7 sources)Start: 97-34-9715tvxz 1000 mg by mouth once dailyMilk Thistle 1,000 mg, Oral, Daily, Refill(s) 0 Start Date: 07/24/23 Status: OrderedMisc DME Prescription (20 sources)Start: 63-99-1033Txov DME Prescription See Instructions, LiquidIV hydration Start Date: 07/24/23 Status: Ordered Repeat number: 1Start: 07-24-2023 Misc DME Prescription See Instructions, LiquidIV hydration Start Date: 07/24/23 Status: OrderedStart: 57-32-8133Dyur DME Prescription See Instructions, Collagen Matrix with ORC and Silver dressing Start Date: 07/24/23 Status: OrderedStart: 79-15-7160Kkwh DME Prescription See Instructions, Muscle & joint balm CBD 880mg Start Date: 07/24/23 Status: Ordered Repeat number: 1Start: 61-97-6891Xepo DME Prescription See Instructions, Cornell SAP Dressing 4 x 4 dressing Start Date: 07/24/23 Status: OrderedStart: 34-63-4290Pysb DME Prescription See Instructions, Muscle & joint balm CBD 880mg Start Date: 07/24/23 Status: OrderedMisc Prescription (7 sources)Start: 59-94-8331Agra Prescription Bee Venom, Daily Start Date: 07/24/23 Status: OrderedMultiple Vitamin (Tab-A-Scott) TABS (8 sources)Start: 96-41-8248yxnu 1 tablet by mouth once dailyMultiple Vitamin (Tab-A-Scott) TABS 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 Apply thin layer to affected area. 30 g 08/25/2022 Activemycophenolate mofetil 500 mg oral tablet (20 sources)Start: 06-66-2377iund 1 tablet by mouth every twelve hours mycophenolate Mofetil (CELLCEPT) 500 mg tablet Take 1 tablet by mouth every 12 hours. 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 120 Tablet 3 02/11/2022 03/13/2022 Discontinued (Dose adjustment)naloxone hydrochloride 40 mg/ml nasal spray (20 sources)Opioid AntagonistStart: 60-03-5151Uxaeor 4 mg/0.1 mL nasal spray 4 mg, Nasal, As Directed, for suspected overdose symptoms, # 1 kit(s), Refills(s) 0, Pharmacy: [facility] #[id number], 170, cm, 12/21/24 8:26:00 EDT, Height/Length Dosing, 77.2, kg, 12/21/24 8:33:00 EDT, Weight Dosing Start Date: 12/21/24 Status: Ordered Quantity: 1.0 Unit: kit(s) Repeat number: 1 Indications: Pain, unspecified;Start: 74-93-5626Eejflq 4 mg/0.1 mL nasal spray 4 mg, Nasal, As Directed, for suspected overdose symptoms, # 1 kit(s), Refills(s) 0, Pharmacy: [facility], 170, cm, 10/05/24 9:01:00 EST, Height/Length Dosing, 78.5, kg, 10/05/24 9:11:00 EST, Weight Dosing Start Date: 10/05/24 Status: OrderedStart: 76-25-9333hzceokeu 4 mg/actuation nasal spray (NARCAN) 1 [place] by nasal (alternating) route. 0 10/28/2023 ActiveStart: 60-58-3820Xrfrrm 4 mg/0.1 mL nasal spray 4 mg, Nasal, As Directed, for suspected overdose symptoms, # 1 kit(s), Refills(s) 0, [id number], 160, cm, 10/28/23 9:43:00 EST, Height/Length Dosing, 69.1, kg, 10/28/23 9:43:00 EST, Weight Dosing Start Date: 10/28/23 Status: Orderednaloxone (NARCAN) 4 mg/actuation spray,non-aerosol nasal spray (3 sources)Start: 95-84-0443aiodoxxa (NARCAN) 4 mg/actuation spray,non-aerosol nasal spray Administer 1 spray (4 mg total) intoeach nostril as needed. 10/28/2023 Activenaloxone 4 mg/actuation nasal spray (NARCAN) (1 source)Start: 53-14-9218norgmngd 4 mg/actuation nasal spray (NARCAN) 1 [place] by nasal (alternating) route. 10/28/2023 Activeondansetron 4 mg oral tablet (20 sources)Serotonin-3 Receptor AntagonistStart: 42-25-9862firj 1 tablet by mouth three times daily as needed for nauseaZofran ODT 4 mg Tab 4 mg = 1 tab(s), Oral, TID, PRN Nausea, # 60 tab(s), Refills(s) 0, Pharmacy: [facility] #[id number], 170, cm, 05/12/24 15:39:00 EDT, Height/Length Dosing, 73, kg, 05/12/24 15:39:00 EDT, Weight Dosing Start Date: 05/31/24 Status: Ordered Quantity: 60.0 Unit: tab(s) Repeat number: 1 Indications: Nausea;Start: 57-92-7001vwcr 1 tablet by mouth three times daily as needed for nauseaZofran ODT 4 mg Tab 4 mg = 1 tab(s), Oral, TID, PRN Nausea, # 60 tab(s), Refills(s) 0, Pharmacy: [facility] #[id number], 170, cm, 12/23/23 11:10:00 EDT, Height/Length Dosing, 70.3, kg, 12/23/23 11:10:00 EDT, Weight Dosing Start Date: 12/23/23 Status: OrderedStart: 10-28-2023 take 1 tablet by mouth three times daily as needed for nauseaZofran ODT 4 mg Tab 4 mg = 1 tab(s), Oral, TID, PRN Nausea, # 60 tab(s), Refills(s) 0, [facility]: [facility] #[id number], 160, cm, 10/28/23 9:43:00 EST, Height/Length Dosing, 69.1, kg, 10/28/23 9:43:00 EST, Weight Dosing Start Date: 10/28/23 Status: OrderedStart: 02-12-2023 End: 74-11-4529zqra 1 tablet by mouth every twelve hours as needed for nausea ondansetron (ZOFRAN-ODT) 4 MG disintegrating tablet Indications: Nausea Take 1 Tablet by mouth every 12 hours as needed for Nausea. Place 1 tablet under tongue as needed for nausea. 30 Tablet 07/14/2023 ActiveStart: 03-13-2022 End: 27-84-9361lhml 1 tablet by mouth every twelve hours as needed for nausea ondansetron (ZOFRAN-ODT) 4 MG disintegrating tablet Indications: Nausea Take 1 Tablet by mouth every 12 hours as needed for Nausea. Place 1 tablet under tongue as needed for nausea. 30 Tablet 0 10/27/2022 ActiveStart: 91-89-6375ckxm 4 mg intravenously every four hours as needed4 mg, Intravenous Push, EVERY 4 HOURS PRN, Starting on Thu01/14/22 at 0843, Until Discontinued, Vomiting, Nauseatake 1 tablet by mouth every eight hours as neededondansetron ODT (ZOFRAN ODT) 4 mg disintegrating tablet Dissolve 1 tablet (4 mg total) on tongue every 8 (eight) hours as needed. 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; Cellulitis of right lower limb; Peripheral vascular disease, unspecified; Pain in right leg; 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 01/27/2024 ActiveStart: 36-02-3518jiak 0.5 tablet by mouth every six hours as needed for painoxyCODONE 5 mg Tab 0.5 tab, Oral, q6hr, PRN for pain, for leg pain- severe pain only, # 28 tab(s), Refills(s) 0, Pharmacy: [facility] #[id number], 170, cm, 01/27/24 9:52:00 EDT, Height/Length Dosing, 74.6, kg, 01/27/24 9:52:00 EDT, Weight Dosing Start Date: 01/27/24 Status: OrderedStart: 44-08-5715ymua 0.5 tablet by mouth every six hours as needed for painoxyCODONE 5 mg Tab 0.5 tab, Oral, q6hr, PRN for pain, for leg pain, # 28 tab(s), Refills(s) 0, [id number], 160, cm, 10/28/23 9:43:00 EST, Height/Length Dosing, 69.1, kg, 10/28/23 9:43:00 EST, Weight Dosing Start Date: 10/28/23 Status: OrderedStart: 02-18-2023 End: 26-52-9681kkjm 1 capsule by mouth every six hours as neededoxyCODONE ir (OXYIR) 5 mg capsule Take 5 mg by mouth every 6 hours as needed. 02/18/2023 Activepediatric multivitamin-iron tablet,chewable (2 sources)Start: 83-23-8663exbtodovk multivitamin-iron tablet,chewable Chew 1 tablet and swallow in the morning. 07/13/2023 Activephosphorated carbo,dext- fruct, (NAUSEA RELIEF ORAL) (1 source)promethazine hydrochloride 25 mg oral tablet (6 sources)PhenothiazineStart: 28-07-1823kufi 1 tablet by mouth every six hours as needed for nauseapromethazine 25 mg Tab 25 mg = 1 tab(s), Oral, q6hr, PRN for nausea/vomiting, # 30 tab(s), Refills(s) 0, Pharmacy: [facility] #[id number], 170, cm, 04/29/24 9:16:00 EDT, Height/Length Dosing, 70.1, kg, 04/29/24 9:16:00 EDT, Weight Dosing Start Date: 04/29/24 Status: Orderedspironolactone 50 mg oral tablet (20 sources)Aldosterone AntagonistStart: 11-21-2024 End: 01-66-7179wlla 1 tablet by mouth once dailyspironolactone 50 mg Tab 50 mg = 1 tab(s), Oral, Daily, X 90 day(s), # 90 tab(s), Refills(s) 3, Pharmacy: [facility] #[id number], 170, cm, 01/12/25 8:55:00 EDT, Height/Length Dosing, 77.1, kg, 01/12/25 8:55:00 EDT, Weight Dosing Start Date: 03/07/25 Stop Date: 03/02/26 Status: Ordered Quantity: 90.0 Unit: tab(s) Repeat number: 4Start: 08-25-2022 End: 99-84-4795yyur 1 tablet by mouth once dailyspironolactone 50 mg Tab 50 mg = 1 tab(s), Oral, Daily, # 90 tab(s), Refills(s) 3, [facility]: [facility] #[id number], 170, cm, 12/23/23 11:10:00 EDT, Height/Length Dosing, 70.3, kg, 12/23/23 11:10:00 EDT, Weight Dosing Start Date: 01/20/24 Status: OrderedBactrim (20 sources)Dihydrofolate Reductase Inhibitor Antibacterial, Sulfonamide AntimicrobialStart: 05-82-4963Voxpmai Oral, Refill(s) 0, taskes 3 times a week Start Date: 09/30/23 Status: OrderedStart: 30-52-5183zlhqspgzzpqovxse- trimethoprim 80 mg, Oral, Refill(s) 0, Take on Thursday, and Thursday StartDate: 07/24/23 Status: OrderedStart: 73-84-3361czst 1 tablet by mouth once sulfamethoxazole-trimethoprim (BACTRIM DS) 800-160 mg per tablet Take 1 tablet by mouth. 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 12 Tablet 3 04/23/2023 07/21/2023 Discontinued (Reorder (*won't e-cancel))Start: 03-22-2023 End: 68-94-2774Byinhkk D.S. 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 30 Tablet 1 02/13/2022 ActiveStart: 01-17-2022 End: 46-60-9065Schhk: 01-17-2022 End: 82-25-8557vdvi 1 tablet by mouth once dailysulfamethoxazole-trimethoprim 800-160 MG (BACTRIM DS) 800-160 MG per tablet Take 1 Tablet by mouth daily. 30 Tablet 1 01/17/2022 02/11/2022 Discontinued (Reorder (*won't e-cancel)) Tab-A-Scott oral tablet (20 sources)Start: 90-44-4494Por-A-Scott oral tablet 1 tab(s), Oral, Daily, 90 tab(s), Refill(s) 3, [facility] #37, 170, cm, 03/07/25 9:41:00 EDT, Height/Length Dosing, 78.1, kg, 03/07/25 9:45:00 EDT, Weight Dosing Start Date: 03/07/25 Status: Ordered Quantity: 90.0 Unit: tab(s) Repeat number: 4Start: 50-67-3177fxdx 1 tablet by mouth once awnhwXgd-H-Vkni oral tablet 1 tab(s), Oral, Daily, Refill(s) 0, Prophylaxis Start Date: 07/24/23 Status:OrderedStart: 87-90-6523xvvu 1 tablet by mouth once mhyndVqu-S-Gvdr oral tablet 1 tab(s), Oral, Daily, Refill(s) 0 Start Date: 07/24/23 Status: Orderedthiamine 100 mg oral tablet (20 sources)Start: 01-16-2022 End: 64-78-6011dynl 1 tablet by mouth once dailyvitamin B-1 (THIAMINE) 100 MG tablet Indications: Alcoholic cirrhosis of liver without ascites (HCC) Take 1 Tablet by mouth daily. 90 Tablet 3 05/06/2022 ActiveStart: 01-08-2022 End: 03-08-9423bilb 100 mg intravenously once kxdhi246 mg, Intravenous Push, DAILY, First dose on Thu01/08/22 at 1430, Until Discontinuedursodiol 300 mg oral capsule (7 sources)Bile AcidStart: 55-11-1864gdzz 1 capsule by mouth every twelve hours ursodiol (ACTIGALL) 300 mg capsule Take 1 capsule by mouth every 12 hours. 12/23/2023 ActiveStart: 71-88-5631rvmn 1 capsule by mouth twice dailyursodiol 300 mg Cap 300 mg = 1 cap(s), Oral, BID, # 60 cap(s), Refills(s) 1, Pharmacy: [facility] #[id number], 170, cm, 12/23/23 11:10:00 EDT, Height/Length Dosing, 70.3, kg, 12/23/23 11:10:00 EDT, Weight Dosing Start Date: 12/23/23 Status: OrderedZofran ODT 4 mg Tab-Dis (20 sources)Start: 78-59-5121aned 1 tablet by mouth every eight hours as needed for nauseaZofran ODT 4 mg Tab-Dis 4 mg = 1 tab(s), Oral, q8hr, PRN Nausea/Vomiting, # 60 tab(s), Refills(s) 12, [facility]: [facility] #[id number], 170, cm, 09/30/23 9:19:00 EST, Height/Length Dosing, 69, kg, 09/30/23 9:19:00 EST, Weight Dosing Start Date: 09/30/23 Status: OrderedStart: 41-87-3396vids 1 tablet by mouth every eight hours as needed for nauseaZofran ODT 4 mg Tab-Dis 4 mg = 1 tab(s), Oral, q8hr, PRN Nausea/Vomiting, # 20 tab(s), Refills(s) 0, [facility]: [facility] #[id number], 170, cm, 03/22/23 20:14:00 EDT, Height/Length Dosing, 75.2, kg, 03/22/23 20:14:00 EDT, Weight Dosing Start Date: 03/22/23 Status: Ordered (1 source)Start: 01-17-2022 (3 sources)Start: 01-14-2022 End: mg, Intravenous, DAILY, 5 doses, First dose on Thu01/14/22 at 1400, Last dose on Thu01/18/22 at 0900, at 125 mL/hrStart: 01-09-2022 End: 76-91-9554dtqy 70 mg by mouth once daily70 mg, Oral, DAILY, First dose on Thu01/09/22 at 1900, Until DiscontinuedStart: 01-08-2022 End: 21-15-841005 mg, Intravenous, DAILY, 3 doses, First dose on Thu01/08/22 at 1530, Last dose on Thu01/10/22 at 0900 Completed/Discontinued Medications MedicationDrug Class(es)DatesSig (Normalized)Sig (Original)acetaminophen 32 mg/ml oral solution (1 source)Start: 64-20-3845220 mg, Oral, EVERY 6 HOURS PRN, Starting on Thu01/10/22 at 2022, Until Discontinued, Mild Pain (pain score 1,2,3), Moderate Pain (pain score 4,5,6)acetaminophen 325 mg / oxyCODONE hydrochloride 5 mg oral tablet (1 source)Opioid AgonistStart: 01-16-2022 End: Tablet, Oral, ONCE, 1 dose, On Rachel 01/16/22 at 0030amoxicillin 875 mg / clavulanate 125 mg oral tablet (7 sources)Penicillin-class AntibacterialStart: 08-16-2022 End: 77-25-4633refs 1 tablet by mouth twice dailyamoxicillin-clavulanate (Augmentin) 875-125 MG per tablet Indications: Klebsiella pneumoniae infection Take 1 Tablet by mouth 2 times daily for 10 days. 20 Tablet 0 08/16/2022 08/25/2022 Discontinued(Therapy completed)BP cuff device and appropriate size please (20 sources)Start: 36-83-8003LO cuff device and appropriate size please BP cuff device and appropriate size please, See Instructions, 1 EA, 0, BP Device/ machine and cuff (size appropriate), Supply Start Date: 10/28/23 Status: Ordered Quantity: 1.0 Unit: EA Repeat number: 1 Indications: Essential (primary) hypertension;Start: 73-98-6406OV cuff device and appropriate size please BP cuff device and appropriate size please, See Instructions, 1 EA, 0, BP Device/ machine and cuff (size appropriate), Supply Start Date: 10/28/23 Status: Ordered calcium chloride 0.0014 meq/ml / potassium chloride 0.004 meq/ml / sodium chloride 0.103 meq/ml / sodium lactate 0.028 meq/ml injectable solution (1 source)Start: 01-08-2022 End: 15-09-3350Vcggxpixcxz, at 150 mL/hr, CONTINUOUS, Starting on Thu01/08/22 at 1830, Until Thu01/14/22 at 0832cefTRIAXone 2000 mg injection (2 sources)Cephalosporin AntibacterialStart: 01-11-2022 End: ,000 mg, Intravenous, EVERY 24 HOURS ANTIBIOTIC, 2 doses, First dose (after last modification) on 01/11/22 at 1700, Last dose on 01/12/22 at 1700Start: 01-08-2022 End: ,000 mg, Intravenous, EVERY 24 HOURS ANTIBIOTIC, First dose on Thu01/08/22 at 1500, Until Discontinuedchlorhexidine gluconate 1.2 mg/ml mouthwash (11 sources)Start: 03-22-2008 End: 93-09-6353kxajqfoargxjg (PERIDEX) 0.12 % solution Indications: Open fracture of angle of jaw (HCC) Take by mouth. Take one capful of solution and place on provided syringe and rinse open area inside of mouth twice a day. 1 bottle 3 03/22/2008 05/06/2022 Discontinued (Therapy completed)168 hr cloNIDine 0.81248 mg/hr transdermal system (1 source)Central alpha-2 Adrenergic AgonistStart: 01-09-2022 End: .1 mg, Transdermal, EVERY 7 DAYS, First dose on Thu01/09/22 at 1400, Until Sgoqxjnuurum942 ml dexmedetomidine 0.004 mg/ml injection (1 source)Central alpha-2 Adrenergic AgonistStart: 01-08-2022 End: 03-66-8695rjkb 3.4-23.5 mL intravenously every hour0.2-1.4 mcg/kg/hr 67 kg (3.35-23.45 mL/hr, rounded to 3.4-23.5 mL/hr), Intravenous, CONTINUOUS, Starting on Thu01/08/22 at 2130, Until Thu01/10/22 at 1155Drug or medicament (substance) (3 sources)Start: 01-10-2022 End: 89-28-3964ewvy 3.4-23.5 mL intravenously every hour0.2-1.4 mcg/kg/hr 67 kg (3.35-23.45 mL/hr, rounded to 3.4-23.5 mL/hr), Intravenous, CONTINUOUS, Starting on Thu01/10/22 at 1200, Until Thu01/15/22 at 0959Start: 01-09-2022 End: 22-00-9611515 mL, NG Tube, 4 times daily ENAR, First dose on Thu01/09/22 at 1600, Until DiscontinuedStart: 01-09-2022 End: 66-18-3770UH Tube, at 20-60 mL/hr, CONTINUOUS, Starting on Thu01/09/22 at 1400, Until Thu01/15/22 at 0952 TubeFeeding: No Meal Tray Tube feeding formula: Peptamen 1.52 ml fentaNYL 0.05 mg/ml injection (1 source)Opioid AgonistStart: 01-20-2023 End: 14-81-9054omqesFAI (SUBLIMAZE) 100 MCG/2ML injection1 ml haloperidol 5 mg/ml injection (1 source)Typical AntipsychoticStart: 01-08-2022 End: 60-81-6003pglxrk 1 dose by intramuscular injection once5 mg, Intramuscular, ONCE, 1 dose, On Thu01/08/22 at 93610 ml HYDROmorphone hydrochloride 2 mg/ml cartridge (2 sources)Opioid AgonistStart: 01-20-2023 End: 50-47-7682YOHSYdkaxyygk (DILAUDID) 2 MG/ML injectionibuprofen 800 mg oral tablet (1 source)Nonsteroidal Anti-inflammatory DrugStart: 03-29-2008 End: 76-36-0763etoauil lispro 100 unt/ml injectable solution (2 sources)Insulin AnalogStart: 30-28-0157lcgviv 1-7 [IU] by subcutaneous injection three times daily before mealtime1-7 Units, Subcutaneous, 3 TIMES DAILY BEFORE MEALS, First dose on Thu01/17/22 at 0800, Until DiscontinuedStart: 01-13-2022 End: 68-74-8801qxtwxu 1-7 [IU] by subcutaneous injection every six hours1-7 Units, Subcutaneous, Every 6 hours, First dose (after last modification) on Thu01/13/22 at 2200,Until Discontinuediohexol (OMNIPAQUE) 350 MG/ML injection (1 source)Start: 01-20-2023 End: 57-65-8493efdiolv (OMNIPAQUE) 350 MG/ML injectionLORazepam 0.5 mg oral tablet (6 sources)BenzodiazepineStart: 73-93-8056vrif 0.5 mg by mouth every six hours as needed0.5 mg, Oral, EVERY 6 HOURS PRN, Starting on Thu01/17/22 at 1435, Until Discontinued, AnxietyStart: 01-10-2022 End: mg, Intravenous Push, EVERY 2 HOURS PRN, Starting on Thu01/10/22 at 1823, Until Thu01/15/22 at 0959, Anxiety, CIWA 9-12 and SBP greater than 165 mmHg and/or HR greater than 100 beats per minute, or CIWA 13 and aboveStart: 01-09-2022 End: 11-92-5648spuc 1 mg intravenously every two hours as needed for anxiety1 mg, Intravenous Push, EVERY 2 HOURS PRN, Starting on Thu01/09/22 at 1344, Until Thu01/10/22 at 1823, Anxiety, CIWA 9-12 and SBP greater than 165 mmHg and/or HR greater than 100 beats per minute, or CIWA 13 and aboveStart: 01-08-2022 End: 09-33-0822dudk 1 dose intravenously once2 mg, Intravenous Push, ONCE, 1 dose, On Thu01/08/22 at 2230Start: 01-08-2022 End: 35-47-0928auba 1 dose intravenously once2 mg, Intravenous Push, ONCE, 1 dose, On Thu01/08/22 at 2200Start: 01-08-2022 End: mg, Oral, EVERY 2 HOURS PRN, Starting on Thu01/08/22 at 1755, Until Thu01/09/22 at 1346, Anxiety, CIWA 9-12 and SBP greater than 165 mmHg and/or HR greater than 100 beats per minute, or CIWA 13 and above50 ml magnesium sulfate 40 mg/ml injection (1 source)Start: 01-10-2022 End: g (2,000 mg), Intravenous, ONCE, 1 dose, On Thu01/10/22 at 1900 metoclopramide 10 mg oral tablet (2 sources)Dopamine-2 Receptor AntagonistStart: 03-15-2008 End: 30-53-1334Enmlz: 03-15-2008 End: 09-29-4589mrqsgurry 1 mg/ml injectable solution (3 sources)BenzodiazepineStart: 01-20-2023 End: 05-73-0245pwdzcfkwx (VERSED) 2 MG/2ML injection1 ml morphine sulfate 4 mg/ml cartridge (1 source)Opioid AgonistStart: 01-10-2022 End: 89-75-1946wgqg 1 dose intravenously once2 mg, Intravenous Push, ONCE, 1 dose, On Thu01/10/22 at 2030Multiple Vitamin (Multi-Vitamins) tablet (20 sources)Start: 05-06-2022 End: 08-45-3993oxao 1 tablet by mouth once dailyMultiple Vitamin (Multi- Vitamins) tablet 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 90 Tablet 3 05/06/2022 ActiveStart: 01-17-2022 End: 60-04-2558royw 1 tablet by mouth once dailyMultiple Vitamin (Multi- Vitamins) tablet Take 1 Tablet by mouth daily. 30 Tablet 3 01/17/2022 05/06/2022 Discontinued (Reorder (*won't e-cancel))Start: 71-48-2657zyru 1 tablet by mouth once dailyMultiple Vitamin (Multi-Vitamins) tablet Take 1 Tablet by mouth daily. 30 Tablet 3 01/17/2022 Activenitrofurantoin, macrocrystals 25 mg / nitrofurantoin, monohydrate 75 mg oral capsule (6 sources)Nitrofuran AntibacterialStart: 08-15-2022 End: 84-36-0697cjwh 1 capsule by mouth twice dailynitrofurantoin monohydrate macrocrystal (MACROBID) 100 MG capsule Indications: Urinary tract infection without hematuria, site unspecified Take 1 Capsule by mouth 2 times daily for 10 days. 20 Capsule 0 08/15/2022 08/16/2022 Discontinued (Changing therapy) Potassium Chloride (20 sources)Start: 35-73-4534lgkj 1 tablet by mouth twice dailyPotassium Chloride (Uke-Nwmb-Xne M20) 20 mEq oral tablet, extended release 20 mEq = 1 tab(s), Oral,BID, # 30 tab(s), Refills(s) 3, [facility]: [facility] #[id number], 170, cm, 07/24/23 7:59:00 EST, Height/Length Dosing, 73.5, kg, 07/24/23 7:59:00 EST, Weight Dosing Start Date: 07/24/23 Status: OrderedStart: 11-79-7267dmhs 1 tablet by mouth once dailypotassium chloride ER (KLOR-CON) 20 mEq tablet Take 1 tablet by mouth once daily. 11/14/2022 ActiveStart: 01-15-2022 End: 89-88-5940aalq 1 dose by mouth once40 mEq, Oral, ONCE, 1 dose, On Thu01/15/22 at 0600Start: 01-13-2022 End: 12-91-887916 mEq, G Tube, ONCE, 1 dose, On 01/13/22 at 0500Start: 01-12-2022 End: 50-31-3583isyn 1 dose by mouth once40 mEq, Oral, ONCE, 1 dose, On 01/13/22 at 0700Start: 01-12-2022 End: mEq, NG Tube, ONCE, 1 dose, On Thu01/12/22 at 0430prednisoLONE 3 mg/ml oral solution (1 source)CorticosteroidStart: 64-10-0329kngw 70 mg by mouth once daily70 mg, Oral, DAILY, First dose on Thu01/11/22 at 0900, Until DiscontinuedpredniSONE 10 mg oral tablet (11 sources)Start: 01-17-2022 End: 28-59-5654bxxwmiSCPR (DELTASONE) 10 MG tablet Take 70mg daily for 14 days (until 01/21/22), and then 60mg daily until seen by hematology. 200 Tablet 2 01/17/2022 05/06/2022 Discontinued (Therapy completed)rifAXIMin 550 mg oral tablet (1 source)Rifamycin AntibacterialStart: 12-55-4927uwpe 550 mg by mouth twice qytgg229 mg, Oral, 2 TIMES DAILY, First dose (after last modification) on Thu01/12/22 at 2100, Until DiscontinuedtraMADol hydrochloride 50 mg oral tablet (2 sources)Opioid AgonistStart: 87-42-121556 mg, Oral, EVERY 6 HOURS PRN, Starting on Thu01/16/22 at 0845, Until Discontinued, Moderate Pain (pain score 4,5,6), Severe Pain (pain score 7,8,9,10)Start: 01-15-2022 End: 85-03-1621aubm 1 dose by mouth once50 mg, Oral, ONCE, 1 dose, On Thu01/15/22 at 1800vitamin b12 0.5 mg oral tablet (1 source)Vitamin K08Njvqo: 51-26-4190tjlj 500 ug by mouth once xwqny426 mcg, Oral, DAILY, First dose on Thu01/09/22 at 1400, Until Discontinued (1 source)Start: 98-53-5360efyv 15 mL by mouth once daily15 mL, Oral, DAILY, First dose on Thu01/09/22 at 1400, Until Discontinued Problems Active Problems Problem ClassificationProblemDateDocumented DateEpisodic/ChronicAbdominal pain (20 sources)Left lower quadrant pain; Translations: [Left lower quadrant pain] Onset: 31-05-4980VeowtyhyYpbgajskopribr/social admission (1 source)Counseling procedure with explicit context; Translations: [Dietary counseling and surveillance]EpisodicAlcohol-related disorders (20 sources)Alcohol abuse; Translations: [Alcohol abuse, uncomplicated]Onset: 01-07-2022 Resolved: 82-99-1219DnaiwahSjgauhclv infection; unspecified site (1 source)Bacterial infection due to Klebsiella pneumoniae; Translations: [Other bacterial infections of unspecified site]EpisodicBiliary tract disease (20 sources)Cholelithiasis without obstruction; Translations: [Calculus of gallbladder without cholecystitis without obstruction]Onset: 73-02-6968[place] Cardiac and circulatory congenital anomalies (5 sources)Vascular disorder; Translations: [Arteriovenous malformation, site unspecified]Onset: 699801-09-2696HvdjkeeYbuzdoh ulcer of skin (7 sources)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; Translations: [Chronic ulcer of skin of lower leg] Onset: 40-58-5424ApnqkcnLkluyserlay and hemorrhagic disorders (20 sources)Thrombocytopenic disorder; Translations: [Thrombocytopenia, unspecified]Onset: 32-92-8483MwntjllGhbdmmplxi and other anemia (20 sources)Warm autoimmune hemolytic anemia; 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)]ChronicDeficiency and other anemia (20 sources)Hemolytic anemia; Translations: [Hereditary hemolytic anemia, unspecified]Onset: 67-36-8878RrpmmizHrxyxgnesu and other anemia (3 sources)Hereditary hemolytic anemia; Translations: [Hereditary hemolytic anemia, unspecified]Onset: 83-67-4626ZsizdrpZyorlrmttb and other anemia (1 source)Pancytopenia; Translations: [Other pancytopenia]Onset: 02-25-2024 ChronicDeficiency and other anemia (20 sources)Anemia; Translations: [Anemia, unspecified]Onset: 07-37-5407Zxyimryg Deficiency and other anemia (20 sources)Iron deficiency anemia; Translations: [Iron deficiency anemia, unspecified]Onset: 12-63-5908NnjvunfwAmngwykiou and other anemia (20 sources)Megaloblastic anemia; 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, not elsewhere classified]Onset: 261166-33-8917QkwvhuujVqentazvso and other anemia (1 source)Deficiency and other anemia; 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]Onset: 95-95-2365Aevawwai mellitus without complication (20 sources)Impaired fasting glycemia; Translations: [Impaired fasting glucose] Onset: 89-51-1927RcdyuzieU Codes: Adverse effects of medical drugs (2 sources)Adverse reaction to biological substance; Translations: [Adverse effect of unspecified drugs, medicaments and biological substances, initial encounter]Onset: 53-14-6775YadqermbL Codes: Natural/environment (1 source)Bite of nonvenomous arthropod; Translations: [Bitten or stung by nonvenomous insect and other nonvenomous arthropods, initial encounter]Onset: 16-48-5846AbbamieiDgbksaoohk disorders (20 sources)Esophageal varices without bleeding; Translations: [Esophageal varices without bleeding]Onset: 65-25-0345AcpznfyIsrzdvkzp hypertension (20 sources)Essential hypertension; Translations: [Essential (primary) hypertension]Onset: 16-42-7461OzlbsdyWagkh and electrolyte disorders (20 sources)Acidosis; Translations: [Acidosis]Onset: 67-27-6706Khrpigwk Genitourinary symptoms and ill-defined conditions (20 sources)Dysuria; Translations: [Dysuria]EpisodicHeadache; including migraine (20 sources)Headache; Translations: [Headache]Onset: 336246-83-9851 EpisodicImmunizations and screening for infectious disease (2 sources)Patient encounter status; Translations: [Encounter for laboratory testing for severe acute respiratory syndrome coronavirus 2 (SARS-CoV-2)] EpisodicInflammatory conditions of male genital organs (1 source)Inflammation of scrotum; Translations: [Inflammatory disorders of scrotum]Onset: 00-02-9571NnjqvpwnOqlkmhue myeloma (1 source)Multiple myeloma; Translations: [Multiple myeloma not having achieved remission]82-02-9062SysncbjDtnkzq and vomiting (20 sources)Nausea and vomiting; Translations: [Nausea with vomiting, unspecified]Onset: 20-26-5520UxhfjqsmHvickoqniba chest pain (1 source)Precordial pain; Translations: [Precordial pain]Onset: 03-17-2024 EpisodicNutritional deficiencies (20 sources)Vitamin D deficiency; Translations: [Vitamin D deficiency, unspecified]Onset: 418134-53-9025PbqpitjKgpl wounds of extremities (1 source)Unspecified open wound, right lower leg, initial encounterEpisodic Other aftercare (4 sources)Antibiotic prophylaxis indicated; Translations: [senior living (current) use of antibiotics]EpisodicOther aftercare (5 sources)Drug therapy status; Translations: [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]EpisodicOther aftercare (1 source)Long-term current use of drug therapy; Translations: [Other long-term (current) drug therapy]Onset: 56-39-0491TuhvvcfyTwblf aftercare (1 source)Follow-up status; Translations: [Encounter for follow-up examination after completed treatment for conditions other than malignant neoplasm]Onset: 80-64-1639KcordajcIpkid circulatory disease (1 source)Elevated blood-pressure reading without diagnosis of hypertension; Translations: [Elevated blood-pressure reading, without diagnosis of hypertension]Onset: 22-83-7009CbmlyjlrDczbc connective tissue disease (1 source)Prepatellar bursitis of right knee; Translations: [Prepatellar bursitis, right knee]EpisodicOther connective tissue disease (1 source)Swelling of lower limb; Translations: [Other specified soft tissue disorders]EpisodicOther connective tissue disease (1 source)Swelling of right lower limb; Translations: [Other specified soft tissue disorders]EpisodicOther connective tissue disease (1 source)Muscle finding; Translations: [Myalgia, unspecified site]EpisodicOther connective tissue disease (19 sources)Pain in right lower limb; Translations: [Pain in right leg]Onset: 92-35-3844BahwkmjmYafrj diseases of veins and lymphatics (2 sources)Lymphedema; Translations: [Lymphedema, not elsewhere classified] Onset: 042823-14-4136WwbwpoxCucri endocrine disorders (1 source)Hypoglycemia; Translations: [Hypoglycemia, unspecified]ChronicOther gastrointestinal disorders (20 sources)Diarrhea; Translations: [Diarrhea, unspecified]Onset: 04-13-2024 50-68-7485UaypdkniQnour hematologic conditions (20 sources)Macrocytosis; Translations: [Other specified diseases of blood and blood-forming organs]Onset: 985049-42-2997DnqqaoxLwdwr hematologic conditions (3 sources)Abnormal presence of albumin; Translations: [Abnormality of albumin] Onset: 30-09-0207IkaevkxzWqigf injuries and conditions due to external causes (1 source)Traumatic AND/OR non-traumatic injury; Translations: [Other injury of unspecified body region, initial encounter]Onset: 34-57-8760HiixfxcrHkiud liver diseases (20 sources)Cirrhosis of liver; Translations: [Unspecified cirrhosis of liver] Onset: 76-32-8078KvulnmlNjvnb liver diseases (1 source)Hepatic fibrosis; Translations: [Liver fibrosis]ChronicOther liver diseases (20 sources)Portal hypertension; Translations: [Portal hypertension]Onset: 16-35-0077AxvxafySukui liver diseases (1 source)Hepatic failure; Translations: [Acute and subacute hepatic failure without coma]Onset: 13-48-8448YhgetvntYexbg liver diseases (20 sources)Elevated liver enzymes level; Translations: [Abnormal levels of other serum enzymes]Onset: 22-23-2254EhjmtuowLhohs liver diseases (5 sources)Enzyme level - finding; Translations: [Abnormal levels of other serum enzymes]Onset: 13-31-6872IoemiupqLnkvu lower respiratory disease (3 sources)Rib pain; Translations: [Pleurodynia]EpisodicOther nervous system disorders (2 sources)Chronic pain; Translations: [Other chronic pain]76-79-8294Rprrycw Other non-traumatic joint disorders (1 source)Swelling of bilateral feet; Translations: [Effusion, right ankle] EpisodicOther nutritional; endocrine; and metabolic disorders (20 sources)Hyperbilirubinemia; Translations: [Other disorders of bilirubin metabolism]Onset: 84-65-9741AlcqverWiudf nutritional; endocrine; and metabolic disorders (1 source)Iron overload; Translations: [Other disorders of iron metabolism] ChronicOther nutritional; endocrine; and metabolic disorders (1 source)Disorder of iron metabolism; Translations: [Other disorders of iron metabolism]Onset: 27-47-6892HsizencIsnth nutritional; endocrine; and metabolic disorders (20 sources)Overweight in adulthood with body mass index of 25 or more but less than 30; Translations: [Body mass index (BMI) 27.0-27.9, adult]Onset: 07-24-2023 EpisodicOther nutritional; endocrine; and metabolic disorders (6 sources)Overweight; Translations: [Overweight]Onset: 13-54-7190TyhfsrifGhmgb screening for suspected conditions (not mental disorders or infectious disease) (20 sources)No current problems or disability; Translations: [Coag./bleeding tests abnormal]Onset: 868105-11-4358FixrmwzbUyvrmdkcrr disorders (not diabetes) (1 source)Acute pancreatitis; Translations: [Acute pancreatitis without necrosis or infection, unspecified]Onset: 29-53-7198PqeexwkmBmcsuxkxil and visceral atherosclerosis (2 sources)Peripheral vascular disease; Translations: [Peripheral vascular disease, unspecified]54-33-3725BvhhjmrKzbuhanwq; thrombophlebitis and thromboembolism (20 sources)Thrombophlebitis; Translations: [Phlebitis and thrombophlebitis of superficial vessels of unspecified lower extremity]Onset: 14-37-7605Ipthquwu Poisoning by other medications and drugs (20 sources)Adverse reaction to hzyk96-99-3553HzgdyglrBhybzupq codes; unclassified (2 sources)Postprocedural state finding; Translations: [Presence of other specified functional implants]45-60-2402XxratwhWrjuuyun codes; unclassified (2 sources)Localized edema; Translations: [Localized edema]Onset: 01-07-2022 EpisodicResidual codes; unclassified (2 sources)Edema of lower extremity; Translations: [Localized edema]Episodic Residual codes; unclassified (20 sources)Tobacco user; Translations: [Tobacco use]Onset: 06-82-4800Yztjtxmd Residual codes; unclassified (8 sources)Current drinker; Translations: [Alcohol use, unspecified, in remission]Onset: 46-59-1623IaxpvnavXjdapvod codes; unclassified (20 sources)User of smokeless vkypwkg43-00-4462UbalxfnxTjrqyciz codes; unclassified (2 sources)Body mass index 20-24 - normal; Translations: [Body mass index (BMI) 23.0-23.9, adult]Onset: 94-73-8744IlhmufcjFovizpsh codes; unclassified (4 sources)Edema; Translations: [Edema, unspecified]Onset: 88-45-9689Bfswtuvm Residual codes; unclassified (20 sources)Dependent edema; Translations: [Edema, unspecified]Onset: 04-13-2024 38-29-2060JmuunhfyKrnkfdcm codes; unclassified (6 sources)Pain; Translations: [Pain, unspecified]Onset: EpisodicSkin and subcutaneous tissue infections (20 sources)Cellulitis of right lower limb; Translations: [Cellulitis of right lower limb]Onset: 58-02-3246ZrnotmsaZjbwgaqhevd; intervertebral disc disorders; other back problems (20 sources)Backache; Translations: [Dorsalgia, unspecified]Onset: 07-06-2003 EpisodicSprains and strains (1 source)Injury of shoulder and upper arm; Translations: [Strain of muscle, fascia and tendon of other partsof biceps, left arm, initial encounter]Episodic Superficial injury; contusion (1 source)Insect bite, nonvenomous, of thigh; Translations: [Insect bite (nonvenomous), right thigh, initial encounter]Onset: 47-66-7657Nbjkfnoz Unclassified (20 sources)Patient encounter yhogam07-07-4074Bwqlnpobduxt (7 sources)Serum albumin below reference uldjd91-68-9387Msxybaxoxgom (5 sources)Body mass index 20-24 - -34-9323Ghboynwnsoul (20 sources)Venous ulcer of lower ubhc79-32-7902Abtoanbuhuvz (1 source)Non-pressure chronic ulcer of left lower leg, unspecified ulcer stage (HCC)63-32-3213Qygzmyv tract infections (4 sources)Urinary tract infectious disease; Translations: [Urinary tract infection, site not specified]EpisodicVaricose veins of lower extremity (20 sources)Varicose veins of right lower limb; Translations: [Varicose veins of right lower extremity with ulcer of unspecified site]Onset: 53-82-6304Jzuevyka Past or Other Problems Problem ClassificationProblemDateDocumented DateEpisodic/ChronicOther aftercare (1 source)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; Translations: [Other long-term (current) drug therapy]Onset: 00-06-4615HinvxyirRlzul aftercare (1 source)senior living (current) use of antibiotics; Translations: [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]Onset: 27-93-9948EttdmyvbKppuc circulatory disease (20 sources)Elevated blood pressure; Translations: [Elevated blood-pressure reading, without diagnosis of hypertension]Onset: 671241-62-8771Aysylgxb Other fractures (20 sources)Compression fracture of lumbar spine; Translations: [Wedge compression fracture of unspecified lumbar vertebra, initial encounter for closed fracture]Onset: 740146-64-4426QjfqxzpfJggxa fractures (4 sources)Fracture of transverse process of lumbar vertebra; Translations: [Unspecified fracture of unspecified lumbar vertebra, initial encounter for closed fracture]Onset: 369871-52-8109NlpxjaqySmgxm injuries and conditions due to external causes (20 sources)Hematoma; Translations: [Other injury of unspecified body region, initial encounter]Onset: 75-29-7213QozkulhgGhztq liver diseases (20 sources)Jaundice; Translations: [Unspecified jaundice]Onset: 01-07-2022 Resolved: 44-14-1669TecpzrluVbqoujdl codes; unclassified (20 sources)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; Translations: [Genetic susceptibility to other disease]Onset: 446331-42-2082ChhqwuzdRnhttnmigq arthritis and related disease (2 sources)Ankylosing spondylitis; Translations: [Ankylosing spondylitis of unspecified sites in spine]Onset: 07-06-2003 Resolved: 649870-10-6193QfpyyvpHjqhu and face fractures (20 sources)Open fracture of mandible, angle of jaw; Translations: [Fracture of angle of mandible, unspecified side, initial encounter for open fracture]Onset: 663254-54-3166Fafziwkt Results Test NameValueInterpretationReference RangeFacilityCBC w/ Auto Diffon 05-19-2025 Basophil Absolute0.0 E9/LNormal0.0-0.2[facility] CenterComment on above:Performed By: #### [id number] #### [facility] [address], [place] [address]Byrdybrfh/100 WBC (Bld)0.4 %Normal0.0-2.0[facility] SystemComment on above:Performed By: #### [id number] #### [facility] [address], [place] [address]Dsb Absolute0.1 E9/LNormal0.0-0.5FMercy Health [facility] Comment on above:Performed By: #### [id number] #### [facility] [address], [place] [address]Mlygjmeimka/100 WBC (Bld)3.1 %Normal0.0-8.0[facility] SystemComment on above:Performed By: #### [id number] #### [facility] [address] [place] [address]Dlwvhdoppnn distribution width (RBC) [Ratio]14.6 %High10.9-14.2 [facility] SystemComment on above:Performed By: #### [id number] #### [facility] [address] [place] [address]Htuvlaynzk (Bld) [Volume fraction]38.3 %Sufcze80.7-49.0[facility] SystemComment on above:Performed By: #### [id number] #### [facility] [address] [place] [address]Nybkiksoab (Bld) [Mass/Vol]13.4 g/dLLow13.5-17.5FMercy Health Perrysburg HospitalComment on above:Performed By: #### [id number] #### [facility] [address], [place] [address]Clswt Absolute0.9 E9/LLow1.0-4.0[facility] Comment on above:Performed By: #### [id number] #### [facility] [address], [place] [address]Fjtkccdyqpe/100 WBC (Bld)26.8 %Vzgcqj94.0-50.0[facility] SystemComment on above:Performed By: #### [id number] #### [facility] [address], [place] [address]QIZ (RBC) [Entitic mass]35.3 tyLsic15.0-34.0[facility] SystemComment on above:Performed By: #### [id number] #### [facility] [address], [place] [address]BTUV (RBC) [Mass/Vol]34.9 g/cVJxagjn71.4-36.0[facility] SystemComment on above:Performed By: #### [id number] #### [facility] [address], [place] [address]VSG (RBC) [Entitic vol]101.0 tMYdyh06.0-100.0[facility] SystemComment on above:Result Comment: Peripheral smear review performed.Performed By: #### [id number] #### [facility] [address] [place] [address]Daae Absolute0.4 E9/LNormal0.2-1.0[facility] Comment on above:Performed By: #### [id number] #### [facility] [address] [place] [address]Ffkpqxpmc/100 WBC (Bld)11.6 %Normal4.0-14.0[facility] SystemComment on above:Performed By: #### [id number] #### [facility] [address], [place] [address]Irimic Absolute1.9 E9/LLow2.0-7.5FMercy Health [facility] Hospital Comment on above:Performed By: #### [id number] #### [facility] [address], [place] [address]Ismvjw Auto58.1 %Enkvxw63.0-75.0[facility] Comment on above:Performed By: #### [id number] #### [facility] [address], [place] [address]Imrqfxvz74.0 E9/ERhg438.0-500.0[facility] Comment on above:Result Comment: Peripheral smear review performed.Performed By: #### [id number] #### [facility] [address] [place] [address]Lgfkiswu mean volume (Bld) [Entitic vol]8.1 fLNormal6.4-10.8 [facility] SystemComment on above:Performed By: #### [id number] #### [facility] [address] [place] [address] 65[address]BFL1.8 E12/LLow4.3-5.9[facility] SystemComment on above:Performed By: #### [id number] #### [facility] [address] [place] [address]XQU8.2 E9/LLow4.0-11.0[facility] SystemComment on above:Performed By: #### [id number] #### [facility] [address] [place] [address]QDCao 70-21-1327Tmbamyj [Mass/Vol]3.8 g/dLNormal3.3-5.0[facility] SystemComment on above:Performed By: #### [id number] #### [facility] [address] [place] [address]Qigvvqp/Globulin [Mass ratio]1.2 {ratio}Normal1.1-2.2FMercy Health Perrysburg HospitalComment on above:Performed By: #### [id number] #### [facility] [address] [place] [address]Hcn Phos99 Int._Unit/DRmgs59-86TnzfqzAdena Health System Comment on above:Performed By: #### [id number] #### [facility] [address] [place] [address]LFM07 Int._Unit/LHigh6-46[facility] SystemComment on above:Performed By: #### [id number] #### [facility] [address] [place] [address] 14[address]Yxxqk gap [Moles/Vol]8 mmol/LNormal6-16[facility] SystemComment on above:Performed By: #### [id number] #### [facility] [address], [place] [address]ZHI58 Int._Unit/LHigh5-43[facility] SystemComment on above:Performed By: #### [id number] #### [facility] [address], [place] [address]Bhwr Total1.8 mg/dLHigh0.0-1.1FMercy Health [facility] Hospital Comment on above:Performed By: #### [id number] #### [facility] [address], [place] [address]WGZ/Creat Ratio18 No HfgycYxhyau96-46ArtsavAdena Health SystemComment on above:Performed By: #### [id number] #### [facility] [address], [place] [address]Qenqybr [Mass/Vol]9.1 mg/dLNormal8.9-11.1FMercy Health Perrysburg HospitalComment on above:Performed By: #### [id number] #### [facility] [address], [place] [address]Kzkkcxix [Moles/Vol]105 mmol/TCuxbut083-123FgsjuaAdena Health SystemComment on above:Performed By: #### [id number] #### [facility] [address], [place] [address]LB6 [Moles/Vol]28 mmol/EOxvpbj83-73YqmccjAdena Health System Comment on above:Performed By: #### [id number] #### [facility] [address], [place] [address]Qpekmawjlx [Mass/Vol]0.6 mg/dLNormal0.5-1.3FMercy Health Perrysburg HospitalComment on above:Performed By: #### [id number] #### [facility] [address], [place] [address]Qjtnogjm (S) [Mass/Vol]3.2 g/dLNormal1.4-4.0[facility] SystemComment on above:Performed By: #### [id number] #### [facility] [address], [place] [address]Sjdlxge [Mass/Vol]97 mg/rEWfqfmh19-723GpdincAdena Health SystemComment on above:Performed By: #### [id number] #### [facility] [address], [place] [address]Woadcgupu [Moles/Vol]4.4 mmol/LNormal3.5-5.3FMercy Health Perrysburg HospitalComment on above:Performed By: #### [id number] #### [facility] [address], [place] [address]Waxeoim [Mass/Vol]7.0 g/dLNormal6.0-7.8[facility] SystemComment on above:Performed By: #### [id number] #### [facility] [address], [place] [address]Xmnjnv [Moles/Vol]137 mmol/BAjnvcu709-854KtenppAdena Health SystemComment on above:Performed By: #### [id number] #### [facility] [address] [place] [address]Jtqk nitrogen [Mass/Vol]11 mg/dLNormal5-21[facility] SystemComment on above:Performed By: #### [id number] #### [facility] [address] [place] [address]UAtf 62-36-0645PJR Coag (PPP) [Relative time]1.37 {INR}Invalid Interpretation CodeAdena Health SystemComment on above:Result Comment: INR results are specifically intended to assess patients stabilized on long-term Anticoagulation therapy suggested INR???s ???Less Intensive Anticoagulation??? 2.0 ??? 3.0 Conventional Range 3.0 ??? 4.5Performed By: #### [id number] #### [facility] [address], [place] [address]IF70.4 second(s)High9.4-12.5[facility] CenterComment on above:Result Comment: 15 days - 4 weeks 1 - [...] the same coagulation reagent and instrumentation as [facility]. Currently there are no coagulation studies available worldwide for children to 14 days, andno normal ranges.Performed By: #### [id number] #### [facility] [address], [place] [address]EF Liveron 40-38-5640JL LiverExam Date/Time: 05/19/2025 08:37 EDT Reason for Exam: K74.60;Elevated LFTs Report IMPRESSION: CHOLELITHIASIS. HETEROGENOUS APPEARING LIVER PATIENT WITH CLINICAL HISTORY OF CIRRHOSIS. CLINICAL HISTORY: Elevated LFTs, K74.60 COMPARISON: NONE. FINDINGS: Liver is normal in size and contour heterogenous in echogenicity. No intrahepatic, and no extrahepatic ductal dilatation. Common duct measures 5 mm. Gallbladder contains multiple shadowing mobile echogenic foci within its lumen. No wall thickening. No pericholecystic fluid. Pancreas obscured by overlying bowel gas. Technical Comments: Ordering Provider: Mario Evans FINAL REPORT Dictated: 05/19/2025 3:44 pm Gerson Barrera MD Signed (Electronic Signature): 05/19/2025 3:44 pm Signed by: Gerson Barrera MD Transcribed by: JUNIOR Technologist: VeronicaEcu Health Medical Centerdeena [facility] Medical CentereGFRon 61-36-5383oOMK591 mL/min/1.73 t9Zyonff>=59[facility] SystemComment on above:Performed By: #### [id number] #### [facility] [address], [place] [address]Guubyvaths Visit Summaryon 32-78-6117Rrzvwxfejp Visit Summary Ambulatory Visit Summary WILL RALPH :1985 Visit Date:04/07/2025 Ambulatory Visit Instructions Your Diagnosis Cirrhosis HTN (hypertension) Liver cirrhosis, alcoholic Iron deficiency anemia Venous ulcer of right leg Right leg pain Dependent edema Cellulitis of right leg BMI 25.0-25.9,adult Over weight 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 Your Care Team Attending Physician - Vic Carrion Primary Care Physician - Vic Carrion This Is Your Medications List Misc Prescription (BP cuff device and appropriate size please) Misc Prescription (Misc DME Prescription) Misc Prescription (Misc DME Prescription) carvedilol (Coreg 6.25 mg Tab) furosemide (furosemide 20 mg Tab) multivitamin (Tab-A-Scott oral tablet) naloxone (Narcan 4 mg/0.1 mL nasal spray) ondansetron (Zofran ODT 4 mg Tab) oxycodone (oxyCODONE 5 mg Tab) spironolactone (spironolactone 50 mg Tab) [Image Removed: STOP]Stop taking these medications cefdinir (cefdinir 300 mg Cap) doxycycline (doxycycline monohydrate 100 mg oral capsule) Procedures Performed Saphenous nerve block (01/03/2025), EGD - esophagogastroduodenoscopy (11/18/2024), EGD - esophagogastroduodenoscopy (11/11/2023), Esophagogastroduodenoscopy (09/30/2023), I and D, Jaw. Discharge Vitals Heart Rate (Peripheral) 62 Blood Pressure 130/78 Height 170 cm Height 67 in Weight 73.3 kg Weight 161.599 lb BMI 25.36 What to do next Scheduled Follow-Up Appointments 2025 2:40 PM EST With: Kavon Lu DO Where: [facility] 2025 3:40 PM EST With: Vic Carrion Where: [facility] [address], [place] [address]- You Need to Schedule the Following Appointments Follow Up with Rachel ALBERTS, Vic [place], KEI, MED When: In 6 months Comments: HTN,leg ulcer Where: [address], [address] [place] [phone] Medications What How Much When Why Instructions Unchanged carvedilol (Coreg 6.25 mg Tab) 1 Tablets By Mouth 2 times a day HTN (hypertension) Unchanged furosemide (furosemide 20 mg Tab) 1 Tablets By Mouth Every day as needed for Edema Unchanged Misc Prescription (BP cuff device and appropriate size please) See instructions HTN (hypertension) BP Device/ machine and cuff (size appropriate) Unchanged Misc Prescription (Misc DME Prescription) See instructions LiquidIV hydration Unchanged Misc Prescription (Misc DME Prescription) See instructions Muscle & joint balm CBD 880mg Unchanged multivitamin (Tab-A-Scott oral tablet) 1 Tablets By Mouth Every day Unchanged naloxone (Narcan 4 mg/ 0.1 mL [...] chronic ulcer of unspecified part of right lowerleg with unspecified severity Cellulitis of right leg Venous ulcer of right leg for leg pain- severe pain only Unchanged spironolactone (spironolactone 50 mg Tab) 1 Tablets By Mouth Every day Duration: 90 Days What How Much When Comments Stop Taking cefdinir (cefdinir 300 mg Cap) 2 Capsules By Mouth Every 24 hours Stop Taking doxycycline (doxycycline monohydrate 100 mg oral capsule) Allergies Definity (Back Pain) amoxicillin (Unknown) penicillin (unknown) Problems Ongoing - Any problem that you are currently receiving treatment for. Abnormal stress test Alcohol use disorder in remission Anemia BMI 26.0-26.9,adult Cellulitis of right leg Cholelithiases Cirrhosis Dependent edema Diarrhea Elevated fasting glucose Elevated INR Elevated liver enzymes Encounter for examination following treatment at hospital Epigastric pain Esophageal varices Headache Hemolytic anemia [...] appreciate your feedback and thank you for cho (more content not included)...[facility] Medicine Office/Clinic Noteon [id number] Chief Complaint 6 mo. f/u HPI Staff 6 mo. f/u - htn, cirrhosis Hypertension. How often are you checking your blood pressure? not checking What are your average readings? _ Have you had any ER visits or any hospitalizations since last visit? Are you compliant with your diet? yes Do you exercise? no Are you compliant with your medications? yes [...] a 39 year old male presenting for 6 month follow up of HTN and cirrhosis. He notes unchanged and pain in right leg continues. He states the cellulitis is resolved at this time. His pain management procedure was canceled and he would like to hold off on this as he is scheduled to see vascular surgery at [facility]. He cannot remember who the appointment is with. Review of Systems PHQ Score Initial Depression Screen Score: 1 SCORE Physical Exam Vitals & Measurements HR: 62(Peripheral) BP: 130/78 SpO2: 97% HT: 170 cm HT: 67 in WT: 73.3 kg WT: 161.599 lb BMI: 25.36 General: Well developed, well nourished, in no acute distress Lungs: Normal respiratory effort and clear to auscultation Cardio: Regular rate and rhythm, normal S1 and S2, no murmur, no rub. 2+ pedal pulse noted. Abdomen: Soft, non-distended, non-tender. no G/R/S/Masses Musculoskeletal: No deformity or scoliosis noted. Normal range of motion. Joints normal. No erythema, edema, effusion, or ecchymosis Extremity: No clubbing, cyanosis, edema, or deformity, with normal ROM in both upper and lower bilateral extremities Neurologic: Grossly normal Skin: right leg with brown discoloration. no signs of cellulitis at this time. No rashes, ulcerations, or suspicious lesions Mental Status: Alert and oriented x3. Normal mood and affect Assessment/Plan 1. Cirrhosis (K74.60: Unspecified cirrhosis of liver) continue follow up with GI team and plan of care from them. follow up labs to monitor liver enzymesand has liver ultrasound due in May 2025. 2. HTN (hypertension) (I10: Essential (primary) hypertension) BP is 130/78 counseled pt to continue to monitor BP at home, follow low salt/caffeine diet, increase physical activity as tolerated with goal 150mins/week. Discussed AHA BP guidelines Discussed HTN sx to report including but not limited to SOB, CP, DAVIS, numbness/tingling, vision changes. Pt verbalized understanding. Continue BP meds: carvedilol 6.25 mg twice daily, spironolactone 50 mg daily, and as needed furosemide for edema. 3. Liver cirrhosis, alcoholic (K70.30: Alcoholic cirrhosis of liver without ascites) see #1. 4. Iron deficiency anemia (D50.9: Iron deficiency anemia, unspecified) continue hematology follow up. last CBC in November shows H&H stable. he does have labs ordered from Dr. Lu and maintain follow up. 5. Venous ulcer of right leg (I83.019: Varicose veins of right lower extremity with ulcer of unspecified site) continue follow up with pain management and upcoming procedure for nerve block. Gabapentin does nothelp his pain. 6. Right leg pain (M79.604: Pain in right leg) due to above. He follows pain management and was going to have a procedure but at the last visit hehad cellulitis and procedure was canceled. He would like to hold [facility] on this procedure [facility] had a long discussion about procedure with pain management and risk for cellulitis. I advised him that his leg is in the best condition it has been. I advised him to at least have the consult and work up for the procedure and then he can decide with them. 7. Dependent edema (R60.9: Edema, unspecified) improved and no signs of edema today in office. His leg looks to be in the best shape it has been since I have started seeing him. Continue keeping leg clean and wearing compression stocking 8. Cellulitis of right leg (L03.115: Cellulitis of right lower limb) resolved at this time. 9. BMI 25.0-25.9,adult (Z68.25: Body mass index [BMI] 25.0-25.9, adult) The standard range for ages 18 and older is >=18.5 and < 25 kg/m2. Your BMI today was above this range, this falls in the overweight to obese category and there are medical benefits to weight loss. We can offer counselling, referral, and/or medical support in addressing this problem. Your BMIand weight management will be followed at subsequent visits. 10. Over weight (E66.3: Overweight) see above. 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 (L97.919: 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) continue follow up with pain management and upcoming procedure for (more content not included)...[facility] HospitalComment on above:Result Comment: Electronically Signed By: Vic Carrion\.br\Date and Time Signed: 04/07/25 09:33 [facility] [id number] [facility] Case Information Case Priority: None Programs: -- Referral Source: Security Intelligence Analyst Referral Reason: Care coordination Case Type: Transition Care Management Risk Score: -- Case Status: Enrolled (March 06, 2025) Date Assigned: March 06, 2025 Assigned By: Shannon Benites RN Date Enrolled: March 06, 2025 Assigned Primary Personnel: Shannon Benites RN Assigned Secondary Personnel: Nasrin Greene RN Case Physician: Vic Carrion Problems Ongoing Abnormal stress test Alcohol use disorder in remission Anemia BMI 26.0-26.9,adult Cellulitis of right leg Cholelithiases Cirrhosis Dependent edema Diarrhea Elevated fasting glucose Elevated INR Elevated liver enzymes Encounter for examination following treatment at hospital Epigastric pain Esophageal varices Headache Hemolytic anemia [...] Denies Dysuria Heavy alcohol use Procedure/Surgical History Saphenous nerve block (01/03/2025), EGD - esophagogastroduodenoscopy (11/18/2024), EGD - esophagogastroduodenoscopy (11/11/2023), Esophagogastroduodenoscopy (09/30/2023), I and D, Jaw. Home Medications BP cuff device and appropriate size please, See Instructions cefdinir 300 mg Cap, 600 mg= 2 cap(s), Oral, q24hr Coreg 6.25 mg Tab, 6.25 mg= 1 tab(s), Oral, BID, 3 refills furosemide 20 mg Tab, 1 tab(s), Oral, Daily, PRN [facility] D[facility] Prescription, See Instructions [facility] Prescription, See Instructions Narcan 4 mg/0.1 mL nasal spray, 4 mg, Nasal, As Directed oxyCODONE 5 mg Tab, 0.5 tab, Oral, q6hr, PRN spironolactone 50 mg Tab, 50 mg= 1 tab(s), Oral, Daily, 3 refills Tab-A-Scott oral tablet, 1 tab(s), Oral, Daily, 3 refills Zofran ODT 4 mg Tab, 4 mg= 1 tab(s), Oral, TID, PRN Allergies Definity (Back Pain) amoxicillin (Unknown) penicillin (unknown) Social History Alcohol - Denies Alcohol Use, 12/23/2023 Past. Beer. 3-5 times per week., 08/19/2024 Past, 09/01/2023 Substance Abuse Never., 08/19/2024 Tobacco Former smoker, quit more than 30 days ago Tobacco Use:. Smokeless tobacco user within last 30 days Smokeless Tobacco Use:. Oral, Ready to change: No. Household tobacco concerns: No. Yes, 12/21/2024 Family History Diabetes mellitus type 2: Father. Screenings and Assessments 03/06/25 10:52:00 Result Name Value Comment Phone Call Monitoring Consent Agreed to continue call Phone Verification Patient Information Full name, street address and date of verified CM Program Enrollment Provides verbal consent for enrollment Goals and Interventions Care Plan Progress Note Final TCM Note - Patient is doing okay. His right leg is healing but he still has pain. He has a follow up scheduled with [facility] V[facility] Surgery in July and will see PCP Alvaro Ramos this Thursday. Denies questions or concerns. This is the final TCM program call d/t being discharged for 30 days. Communication Events Date: April 03, 2025 Method: Phone call Type: Outbound Duration (min): 2 Outcome: Case discussion Contact Type: Patient Contact Name: WILL RALPH Notes: Final TCM call - see case summary note. Created By: Shannon Benites RN Date: March 27, 2025 Method: Phone call Type: Outbound Duration (min): 1 Outcome: Left message-voicemail Contact Type: Patient Contact Name: WILL RALPH Notes: ROXI #4 - Attempted to contact patient for TCM program follow up call; no answer. Left message for return call with status update. Created By: Shannon Benites RN Date: March 20, 2025 Method: Phone call Type: Outbound Duration (min): 1 Outcome: Left message-voicemail Contact Type: Patient Contact Name: WILL RALPH Notes: ROXI #3 - Attempted to contact patient for TCM program follow up call; no answer. Left message for patient to return call with status update. Created By: Shannon Benites RN Date: March 13, 2025 Method: Phone call Type: Outbound Duration (min): 3 Outcome: Case discussion Contact Type: Patient Contact Name: WILL RALPH Notes: ROXI #2 - see case summary note. Created By: Shannon Benites RN Date: March 06, 2025 Method: Phone call Type: Outbound Duration (min): 14 Outcome: Case discussion Contact Type: Patient Contact Name: WILL RALPH Notes: TCM #1 - Spoke with patient for initial call for the TCM program; Patient Summary sent to PCP. Created By: Shannon Benites [facility] on [id number] Case Information Case Priority: None Programs: -- Referral Source: Security Intelligence Analyst Referral Reason: Care coordination Case Type: Transition Care Management Risk Score: -- Case Status: Enrolled (March 06, 2025) Date Assigned: March 06, 2025 Assigned By: Shannon Benites RN Date Enrolled: March 06, 2025 Assigned Primary Personnel: Shannon Benites RN Assigned Secondary Personnel: Nasrin Greene RN Case Physician: Vic Carrion Problems Ongoing Abnormal stress test Alcohol use disorder in remission Anemia BMI 26.0-26.9,adult Cellulitis of right leg Cholelithiases Cirrhosis Dependent edema Diarrhea Elevated fasting glucose Elevated INR Elevated liver enzymes Encounter for examination following treatment at hospital Epigastric pain Esophageal varices Headache Hemolytic anemia [...] Denies Dysuria Heavy alcohol use Procedure/Surgical History Saphenous nerve block (01/03/2025), EGD - esophagogastroduodenoscopy (11/18/2024), EGD - esophagogastroduodenoscopy (11/11/2023), Esophagogastroduodenoscopy (09/30/2023), I and D, Jaw. Home Medications BP cuff device and appropriate size please, See Instructions cefdinir 300 mg Cap, 600 mg= 2 cap(s), Oral, q24hr Coreg 6.25 mg Tab, 6.25 mg= 1 tab(s), Oral, BID, 3 refills doxycycline monohydrate 100 mg oral capsule, 100 mg= 1 cap(s), Oral, Daily furosemide 20 mg Tab, 1 tab(s), Oral, Daily, PRN magnesium oxide 400 mg Tab, 400 mg= 1 tab(s), Oral, BID [facility] DME Prescription, See Instructions [facility] Prescription, See Instructions Narcan 4 mg/0.1 mL nasal spray, 4 mg, Nasal, As Directed oxyCODONE 5 mg Tab, 0.5 tab, Oral, q6hr, PRN spironolactone 50 mg Tab, 50 mg= 1 tab(s), Oral, Daily, 3 refills Tab-A-Scott oral tablet, 1 tab(s), Oral, Daily, 3 refills Zofran ODT 4 mg Tab, 4 mg= 1 tab(s), Oral, TID, PRN Allergies Definity (Back Pain) amoxicillin (Unknown) penicillin (unknown) Social History Alcohol - Denies Alcohol Use, 12/23/2023 Past. Beer. 3-5 times per week., 08/19/2024 Past, 09/01/2023 Substance Abuse Never., 08/19/2024 Tobacco Former smoker, quit more than 30 days ago Tobacco Use:. Smokeless tobacco user within last 30 days Smokeless Tobacco Use:. Oral, Ready to change: No. Household tobacco concerns: No. Yes, 12/21/2024 Family History Diabetes mellitus type 2: Father. Screenings and Assessments 03/06/25 10:52:00 Result Name Value Comment Phone Call Monitoring Consent Agreed to continue call Phone Verification Patient Information Full name, street address and date of verified Program Enrollment Provides verbal consent for enrollment Goals and Interventions Care Plan Progress Note TCM #2 - Patient is doing okay. Denies fevers. Denies N/V. His right leg is still painful. He is taking Oxycodone as needed. He has not yet heard from [facility] Vascular Surgery after referral was sent on 03/08. Advised to call them if he has not heard anything by the end of the week. He reports he has their contact information. He is still on antibiotics. He is eating and drinking without difficulty. Denies questions/concerns. Communication Events Date: March 13, 2025 Method: Phone call Type: Outbound Duration (min): 3 Outcome: Case discussion Contact Type: Patient Contact Name: JUSTINWILL JON Notes: TCM #2 - see case summary note. Created By: Kamari GREER, Shannon Cosme Date: March 06, 2025 Method: Phone call Type: Outbound Duration (min): 14 Outcome: Case discussion Contact Type: Patient Contact Name: JUSTIN WILL Elder Notes: TCM #1 - Spoke with patient for initial call for the TCM program; Patient Summary sent to PCP. Created By: Kamari GREER, [facility] Summaryon [id number] Visit SummaryAmbulatory Visit Summary JUSTIN WILL Elder :1985 Visit Date:03/07/2025 Ambulatory Visit Instructions Your Diagnosis Encounter for examination following treatment at hospital Cellulitis of right leg Venous ulcer of right leg BMI 26.0-26.9,adult Overweight 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 Peripheral vascular disease Right leg pain Your Care Team Attending Physician - Vic Carrion Primary Care Physician - Vic Carrion This Is Your Medications List Misc Prescription (BP cuff device and appropriate size please) Misc Prescription (Misc DME Prescription) Misc Prescription (Misc DME Prescription) acetaminophen-codeine (acetaminophen-codeine 300 mg-30 mg Tab) carvedilol (Coreg 6.25 mg Tab) cefdinir (cefdinir 300 mg Cap) doxycycline (doxycycline monohydrate 100 mg oral capsule) furosemide (furosemide 20 mg Tab) magnesium oxide (magnesium oxide 400 mg Tab) multivitamin (Tab-A-Scott oral tablet) naloxone (Narcan 4 mg/0.1 mL nasal spray) ondansetron (Zofran ODT 4 mg Tab) oxycodone (oxyCODONE 5 mg Tab) spironolactone (spironolactone 50 mg Tab) Procedures Performed Saphenous nerve block (01/03/2025), EGD - esophagogastroduodenoscopy (11/18/2024), EGD - esophagogastroduodenoscopy (11/11/2023), Esophagogastroduodenoscopy (09/30/2023), I and D, Jaw. Discharge Vitals Heart Rate (Peripheral) 68 Blood Pressure 136/82 Height 170 cm Height 67 in Weight 78.1 kg Weight 172.181 lb BMI 27.02 What to do next Scheduled Follow-Up Appointments Thursday 8:00 AM EDT With: Evelio Carr DO Where: [facility] Thursday 8:00 AM EDT With: Where: [facility] Thursday 8:00 AM EDT With: Sadie Loco PA-C Where: [facility] Thursday 8:40 AM EDT With: Vic Carrion Where: [facility] [address], [place] [address] 2:40 PM EST With: Kavon Lu DO Where: [facility] You Need to Schedule the Following Appointments Follow Up with Vic Carrion, [facility], [facility] When: Comments: as scheduled Where: [address], [address] [place] [phone] Someone Will Contact You Regarding These Appointments [facility] [place] Ambulatory Referral, Vascular Surgery, 03/07/25 10:23:00 EDT, Peripheral vascular disease 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 Right leg pain Venous ulcer of right leg Cellulitis of right leg Medications What How Much When Why Instructions New multivitamin (Tab-A-Scott oral tablet) 1 Tablets By Mouth Every day Refills: 3 Pickup at [facility] Unchanged acetaminophen-codeine (acetaminophen-codeine 300 mg-30 mg Tab) 1 Tablets By Mouth Every 6hours Duration: 5 Days TAKE 1 TABLET BY MOUTH EVERY 6 HOURS NEEDED FOR PAIN FOR 5 DAYS Unchanged carvedilol (Coreg 6.25 mg Tab) 1 Tablets By Mouth 2 times a day HTN (hypertension) Unchanged cefdinir (cefdinir 300 mg Cap) 2 Capsules By Mouth Every 24 hours Unchanged doxycycline (doxycycline monohydrate 100 mg oral capsule) 1 Capsules By Mouth Every day Duration: 14 Days Unchanged furosemide (furosemide 20 mg Tab) 1 Tablets By Mouth Every day as needed for Edema Unchanged magnesium oxide (magnesium oxide 400 mg Tab) 1 Tablets By Mouth 2 times a day Duration: 10 Days Unchanged Misc Prescription (BP cuff device and [...] chronic ulcer of unspecified part of right lowerleg with unspecified severity Cellulitis of right leg Venous ulcer of right leg for leg pain- severe pain only Pickup at [facility] Unchanged spironolactone (spironolactone 50 mg Tab) 1 Tablets By Mouth Every day Duration: 90 Days Pharmacy Information [facility]: [address] [place], [place] [phone] Allergies Definity (Back Pain) amoxicillin (Unknown) penicillin (unknown) Problems Ongoing - Any problem that you are currently receiving treatment for. Abnormal stress test Alcohol use disorder in remission Anemia BMI 26.0 (more content not included)...[facility] Medicine Office/Clinic Noteon [id number] Medicine Office/Clinic NoteFami Medicine Office/Clinic Note Chief Complaint Hosp. f/u HPI Staff Hosp. f/u from [facility] from 02/27 - 03/03 for right leg cellulitis Pt. states he is doing better, still on ATB's History of Present Illness Will is a 39 year old male presenting for TCM visit from [facility] discharge on 03-03-25. Hewas started on vancomycin in the hospital as he failed outpatient treatment. culture of wound showed e-coli. He was receiving Invanz and was covered with doxycycline for possible MRSA. He was discharged on cefdinir and doxycycline. He states when his symptoms started they worsened very quickly causing him to not be able to drive. He states he went back to the ED after being discharged and had ultrasound completed to rule out DVT and was negative. He denies recent fevers/chills. He is still having pain with palpation in his right leg. Review of Systems PHQ Score Initial Depression Screen Score: 2 SCORE Physical Exam Vitals & Measurements HR: 68(Peripheral) BP: 136/82 SpO2: 100% HT: 67 in HT: 170 cm WT: 78.1 kg WT: 172.181 lb BMI: 27.02 General: Well developed, well nourished, in no acute distress Lungs: Normal respiratory effort and clear to auscultation Cardio: Regular rate and rhythm, normal S1 and S2, no murmur, no rub Abdomen: Soft, non-distended, non-tender. no G/R/S/Masses Musculoskeletal: No deformity or scoliosis noted. Normal range of motion. Joints normal. No erythema, edema, effusion, or ecchymosis Extremity: No clubbing, cyanosis, or deformity, with normal ROM in both upper and lower bilateral extremities Neurologic: Grossly normal Skin: Right leg with 2+ edema tender to palpation with erythema and purpura. No other rashes, ulcerations, or suspicious lesions Mental Status: Alert and oriented x3. Normal mood and affect Assessment/Plan 1. Encounter for examination following treatment at hospital (Z09: Encounter for follow-up examination after completed treatment for conditions other than malignant neoplasm) [facility] 02-28-25 to 03-03-25. Ordered: [facility] 7 day disch [id number] 2. Cellulitis of right leg (L03.115: Cellulitis of right lower limb) continue current ATB therapy of cefdinir 600 mg daily and doxycycline 100 mg twice daily. He will monitor for worsening signs and symptoms and proceed to ED if this occurs given how rapidly it progressed this most recent time. He would like to see a specialist to identify if improving blood flow can decrease how much this happens to him. I will place referral for [facility] vascular surgery referral. his right leg is in pain and upcoming procedure scheduled with pain management. he is unable to take tylenol with codeine due to liver issues. he will turn this prescription into the pharmacy and take short term oxycodone. Julieta was previously giving him script of doxycycline when the cellulitis would start. I would like to continue this for him and if he calls at future dates with these issues, will send Rx for doxycycline to pharmacy. Advised that any worsening symptoms, proceed to ED. Ordered: oxycodone, 0.5 tab, Oral, q6hr, PRN for pain, for leg pain- severe pain only, # 20 tab(s), Refills(s) 0, Pharmacy: [facility], 170, cm, 03/07/25 9:41:00 EDT, Height/Length Dosing, 78.1, kg, 03/07/25 9:45:00 EDT, Weight Dosing [facility] [place] Ambulatory Referral [facility] 7 day disch [id number] 3. Venous ulcer of right leg (I83.019: Varicose veins of right lower extremity with ulcer of unspecified site) see above. Ordered: oxycodone, 0.5 tab, Oral, q6hr, PRN for pain, for leg pain- severe pain only, # 20 tab(s), Refills(s) 0, Pharmacy: [facility], 170, cm, 03/07/25 9:41:00 EDT, Height/Length Dosing, 78.1, kg, 03/07/25 9:45:00 EDT, Weight Dosing [facility] [place] Ambulatory Referral [facility] 7 disch [id number] 4. BMI 26.0-26.9,adult (Z68.26: Body mass index [BMI] 26.0-26.9, adult) The standard range for ages 18 and older is >=18.5 and < 25 kg/m2. Your BMI today was above this range, this falls in the overweight to obese category and there are medical benefits to weight loss. We can offer counselling, referral, and/or medical support in addressing this problem. Your BMIand weight management will be followed at subsequent visits. Ordered: [facility] 7 day disch [id number] 5. Overweight (E66.3: Overweight) see above. Ordered: [facility] 7 day disch [id number] 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 (L97.919: 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) see #2 Ordered: oxycodone, 0.5 tab, Oral, q6hr, PRN for pain, for leg pain- severe pain only, # 20 tab(s), Refills(s) 0, Pharmacy: [facility], 170, cm, 03/07/25 9:41:00 EDT, Height/Length Dosing, 78.1, kg, 03/07/25 9:45:00 EDT, Weight Dosing [facility] [place] Ambulatory Referral Peripheral vascular disease (I73.9: Peripheral vascula (more content not included)...[facility] HospitalComment on above:Result Comment: Electronically Signed By: Rachel ALBERTS, Vic Alvarez\Date and Time Signed: 03/07/25 10:35 EDTMain OR Intraoperative Recordon [id number] OR Intraoperative RecordMain OR Intraoperative Record IntraOp Document Type FTPM Summary Primary Physician: Evelio Carr DO Finalized Date/Time: 01/03/25 11:51:23 Pt. Name: JUSTINWILL/Sex: 1985 Male Med Rec #: [id number] Physician: Evelio Carr DO Financial #: [id number] Pt. Type: P Room/Bed: / Admit/Disch: 01/03/25 10:20:12 - Institution: Case Times FTPM Entry 1 Patient Times In Room 01/03/25 11:40:00 Out Room 01/03/25 11:52:00 Procedure Times Start 01/03/25 11:43:00 Stop 01/03/25 11:51:00 Anesthesia Times Last Modified By: Micky GREER, Ronda Friedman 01/03/25 11:51:18 Case Attendance FTPM Entry 1 Entry 2 Entry 3 Case Attendee Evelio Carr DO, RN, Ronda Mosley RN, Jennifer Carmelina Role Performed Surgeon - Primary Javascript Programmer - Primary Scrub - Primary Time In 01/03/25 11:40:00 01/03/25 11:40:00 01/03/25 11:40:00 Time Out 01/03/25 11:52:00 01/03/25 11:52:00 01/03/25 11:52:00 Procedure OTHER NERVE BLOCK(Right) OTHER NERVE BLOCK(Right) OTHER NERVE BLOCK(Right) Comments Last Modified By: Micky GREER, Ronda Weeks RN, Ronda West RN 01/03/25 11:51:19 01/03/25 11:51:19 01/03/25 11:51:19 Entry 4 Case Attendee Lisandra Sauer Role Performed Transportation Attendant Time In 01/03/25 11:40:00 Time Out 01/03/25 [...] Ronda Weeks RN, Verified (If X-ray Participants Dimitri GREER, Jennifer Applicable) Bruno Cosme DO, Bradford A. Time [...] and tissue Entry 1 Skin Integrity Intact, Rinard, Warm, & Skin Abnormality No Dry Outcomes [...] symptoms of injury rel (more content not included)...[facility] Preoperative Recordon [id number] OR Preoperative RecordMain OR Preoperative Record Holding Area Document Type FTPM Summary Primary Physician: Evelio Carr DO Finalized Date/Time: 01/03/25 10:50:35 Pt. Name: WILL RALPH/Sex: 1985 Male Med Rec #: [id number] Physician: Evelio Carr DO Financial #: [id number] Pt. Type: P Room/Bed: / Admit/Disch: 01/03/25 [...] or her perioperative plan of care The patient'sright to privacy is maintained Surgery Checklist FTPM [...] Signatures Signed By: Belén Huffman RN 01/03/25 10:50[facility] HospitalAmbulatory Visit Summaryon [id number] Visit SummaryAmbulatory Visit Summary WILL RALPH :1985 Visit Date:12/21/2024 [...] 50 mg Tab) Procedures Performed EGD - esophagogastroduodenoscopy (11/18/2024), EGD - esophagogastroduodenoscopy (11/11/2023), Esophagogastroduodenoscopy (09/30/2023), I and D, Jaw. Discharge Vitals Heart Rate (Peripheral) 66 Blood Pressure 130/76 Height 170 cm Height 67 in Weight 77.2 kg Weight 170.197 lb BMI 26.71 What to do next Scheduled Follow-Up Appointments Thursday 8:40 AM EDT With: Vic Carrion Where: [facility] [address], [place] [address] 2:40 PM EST With: Kavon Lu DO Where: [facility] You Need to Schedule the Following Appointments Follow Up with Vic Carrion, [facility], [facility] When: Comments: as scheduled Where: [address] [facility] [address] [place] [phone] Medications What How Much When Why Instructions Unchanged carvedilol (Coreg 6.25 mg Tab) 1 Tablets By Mouth 2 times a day HTN (hypertension) Unchanged furosemide (furosemide 20 mg Tab) 1 Tablets By Mouth Every day as needed for Edema Unchanged magnesium citrate By Mouth Unchanged Misc Prescription (BP cuff device and appropriate size please) See instructions HTN (hypertension) BP Device/ machine and cuff (size appropriate) Unchanged Misc Prescription (Misc DME Prescription) See instructions Cornell SAP Dressing 4 x 4 dressing Unchanged Misc Prescription (Misc DME Prescription) See instructions LiquidIV hydration Unchanged Misc Prescription (Misc DME Prescription) See instructions Muscle & joint balm CBD 880mg Unchanged naloxone (Narcan 4 mg/ 0.1 mL nasal spray) 4 Milligram Nasal Inhalation As Directed Pain for suspected overdose symptoms Pickup at [facility] Unchanged ondansetron (Zofran ODT 4 mg Tab) 1 Tablets By Mouth 3 times a day as needed for Nausea Nausea Unchanged oxycodone (oxyCODONE 5 mg Tab) 0.5 tab By Mouth Every 6 hours as needed for for pain Right leg pain Peripheral vascular disease 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 here for right leg pain. Seen pain management yesterday. Will be having a procedure in a coupleweeks or so. Also states that he had [...] He states he talked with his specialists, andthey are OK with him having short term scripts for narcotic pain medication. He notes when he takeshis oxycodone he only takes a quarter to [...] term refill. He will continue follow up withpain management for upcoming procedure. Ordered: oxycodone, 0.5 tab, Oral, q6hr, PRN for pain, for leg pain- severe pain only, # 20 tab(s), Refills(s) 0, Pharmacy: [facility], 170, cm, 12/21/24 8:26:00 EDT, Height/Length [...] medical support in addressing this problem. Your BMIand weight management will be followed at subsequent [...] only, # 20 tab(s), Refills(s) 0, Pharmacy: [facility], 170, cm, 12/21/24 8:26:00 EDT, Height/Length Dosing, 77.2, kg, 12/21/24 8:33:00 EDT, Weight Dosing 6. Peripheral vascular disease (I73.9: Peripheral vascular disease, unspecified) see above. Ordered: oxycodone, 0.5 tab, Oral, q6hr, PRN for pain, for leg pain- severe pain only, # 20 tab(s), Refills(s) 0, Pharmacy: [facility], 170, cm, 12/21/24 8:26:00 EDT, Height/Length Dosing, 77.2, kg, 12/21/24 8:33:00 EDT, Weight Dosing Orders: naloxone, 4 mg, Nasal, As Directed, for suspected overdose symptoms, # 1 kit(s), Refills(s) 0, Pharmacy: [facility], 170, cm, 12/21/24 8:26:00 EDT, Height/Length Dosing, 77.2, kg, 12/21/24 8:33:00 EDT, Weight Dosing Total time spen (more content not included)...[facility] Comment on above:Result Comment: Electronically Signed By: Rachel ALBERTS, Vic Friedman\.br\Date and Time Signed: 12/21/24 09:05 EDTReminderson [id number] Reminders From: Naty Garcia MA To: [facility] - Reminders/Recalls; Sent: 12/09/2024 11:32:43 EDT Show up: 10/08/2025 11:32:00 EST Subject: EGD recall Due Date/Time: 11/18/2025 11:32:00 EDT Reminder/Recall [address] Evans 11/18/24NoMarietta Memorial HospitalMRI Spine Lumbar w/o Contraston [id number] Spine Lumbar w/o ContrastExam Date/Time: 11/28/2024 07:58 EDT Reason for Exam: [...] Camacho Almeida MD Transcribed by: JUNIOR Technologist: [facility] CenterAmbulatory Visit Summaryon [id number] Visit SummaryAmbulatory Visit Summary WILL RALPH :1985 Visit Date:11/21/2024 Ambulatory Visit Instructions Your Diagnosis Liver cirrhosis, alcoholic Alcohol use disorder in remission Elevated liver enzymes Hemolytic anemia Your Care Team Attending Physician - Mario Evans MD Primary Care Physician - Vic Carrion This [...] 5 mg Tab) Procedures Performed EGD - esophagogastroduodenoscopy (11/18/2024), EGD - esophagogastroduodenoscopy (11/11/2023), Esophagogastroduodenoscopy (09/30/2023), I and D, Jaw. Discharge Vitals Heart Rate (Peripheral) 65 Blood Pressure 120/74 Height 170 cm Height 67 in Weight 77.5 kg Weight 170.858 lb BMI 26.82 What to do next Scheduled Follow-Up Appointments Thursday 8:40 AM EDT With: Rachel ALBERTS, Vic Friedman Where: [facility] [address] [place] [address] 2:40 PM EST With: Kavon Lu DO Where: [facility] You Need to Schedule the Following Appointments Follow Up with Carrol MULTANI, JOE [place], [facility] When: In 3 months Where: [address], [address] [phone] You Need to Complete the Following CBC [...] Duration: 90 Days Refills: 3 Pickup at [facility] Unchanged carvedilol (Coreg 6.25 mg Tab) [...] Misc Prescription (Misc DME Prescription) See instructions Cornell SAP Dressing 4 x 4 dressing Contact [...] physician if questions or concerns Pharmacy Information [facility]: [address] [place], [place] [phone] Allergies Definity (Back Pain) amoxicillin (Unknown) penicillin [...] Liver cirrhosis, 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[facility] Gastro[facility]ology Office/Clinic Noteon [id number] Office/Clinic NoteGastroenterology Office/Clinic Note Chief Complaint EGD results HPI [...] fL High (11/11/24) Chloride: 105 mmol/L (11/11/24) Winn Absolute: 0.4 E9/L (11/11/24) CO2: 27 mmol/L (11/11/24) Winn Auto: 9.7 % (11/11/24) Creatinine: 0.5 mg/dL [...] 2.5 years Liver biopsy was done at [facility], gradient was 14 mmHg Liver [...] Follow-up With When Contact Information Carrol MULTANI, JOE [place] MED In [address] [place] [address], [address] [place] [phone] Additional Instructions: Problem List/Past Medical History Ongoing Abnormal stress test Alcohol use disorder in remission Anemia BMI 26.0-26.9,adult Cellulitis of right leg Cholelithiases Cirrhosis Dependent edema Diarrhea Elevated fasting glucose Elevated INR Elevated liver enzymes Epigastric pain Esophageal varices Headache Hemolytic anemia HTN (hypertension) Hypokalemia Iron deficiency anemia Liver cirrhosis, al (more content not included)...[facility] HospitalComment on above:Result Comment: Electronically Signed By: Mario Evans MD\.br\Date and Time Signed: 11/21/24 10:25 EDT\.br\Electronically Co-Signed By: Mc MA, Joy L\.br\Date and Time Co-Signed: 11/21/24 10:18 EDTMain OR Intraoperative Recordon [id number] OR Intraoperative RecordMain OR Intraoperative Record IntraOp Document Type FT Summary Primary Physician: Mario Evans MD Finalized Date/Time: 11/21/24 11:21:46 Pt. Name: WILL RALPH Elder SantosB./Sex: 1985 Male Med Rec #: [id number] Physician: Mario Evans MD Financial #: [id number] Pt. Type: O Room/Bed: / Admit/Disch: 11/18/24 [...] Ware RN, Eve Do Role Performed Anesthesiologist Javascript Programmer - Primary Scrub - Primary Police Matron Time In 11/18/24 08:54:00 11/18/24 08:54:00 11/18/24 08:54:00 Time Out 11/18/24 09:02:00 11/18/24 09:02:00 11/18/24 09:02:00 Procedure EGD(.) EGD(.) EGD(.) Comments Dr. Chin supervising Last Modified By: Jeanie GREER, Ivis Ware RN, Ivis Pedraza RN 11/18/24 09:01:19 11/18/24 [...] Jeanie Maria RN, Angela, Miles, Kirstyn K, Sarmini MD, Mario Xiong Time Out Complete 11/18/24 08:56:00 [...] and tissue Entry 1 Skin Integrity Intact, Rinard, Warm, & Skin Abnormality No Dry Outcomes [...] Extended Positioning Device Safet (more content not included)...[facility] [id number] Reminders From: Grace Galaviz I To: [facility] - Reminders/Recalls; Sent: 11/21/2024 07:32:43 EDT Show up: 10/08/2025 07:32:00 EST Subject: EGD recall Due Date/Time: 11/18/2025 07:32:00 EDT Reminder/Recall [address] Evans 11/18/24NoMarietta Memorial HospitalXR Spine Lumbosacral Minimum 4 Viewson [id number] Spine Lumbosacral Minimum 4 ViewsExam Date/Time: 11/21/2024 10:46 EDT Reason for Exam: [...] Bang Ortiz DO Transcribed by: JUNIOR Technologist: [facility] HamiltonXR Foot 3+ Views Righton [id number] Foot 3+ Views RightExam Date/Time: 11/18/2024 18:44 EDT Reason for Exam: [...] Gerson Barrera MD Transcribed by: JUNIOR Technologist: [facility] CenterAmbulatory Visit Summaryon [id number] Visit SummaryAmbulatory Visit Summary WILL RALPH :1985 Visit Date:11/18/2024 [...] 50 mg Tab) Procedures Performed EGD - esophagogastroduodenoscopy (11/18/2024), EGD - esophagogastroduodenoscopy (11/11/2023), Esophagogastroduodenoscopy (09/30/2023), I and D, Jaw. Discharge Vitals Temperature (Oral) 37.0 ???C Heart Rate (Peripheral) 70 Blood Pressure 128/80 Height 170 cm Height 67 in Weight 77.1 kg Weight 169.976 lb BMI 26.68 What to do next Scheduled Follow-Up Appointments Thursday 8:30 AM EDT With: Sadie Loco PA-C Where: [facility] Thursday 9:15 AM EDT With: Carrol MULTANI, Mario Xiong Where: [facility] [address] [place] [address] Thursday 8:40 AM EDT With: Vic Carrion Where: [facility] [address], [place] [address] 2:40 PM EST With: Kavon Lu DO Where: [facility] Medications What How Much When Why Instructions Unchanged carvedilol (Coreg 6.25 mg Tab) 1 Tablets By Mouth 2 times a day HTN (hypertension) Unchanged furosemide (furosemide 20 mg Tab) 1 Tablets By Mouth Every day as needed for Edema Unchanged gabapentin (gabapentin 300 mg Cap) See instructions take per office provided instructionsuntil you are taking 2 tablets three times per day Unchanged gabapentin (gabapentin 600 mg Tab) 2 Tablets By Mouth 3 times a day Chronic pain Duration: 30 Days Unchanged magnesium citrate By Mouth Unchanged Misc Prescription (BP cuff device and appropriate size please) See instructions HTN (hypertension) BP Device/ machine and cuff (size appropriate) Unchanged Misc Prescription (Misc DME Prescription) See instructions Cornell SAP Dressing 4 x 4 dressing Unchanged [...] you for choosing us for your care. [facility] HospitalDischarge Instructionson [id number] InstructionsDischarge Instructions WILL RALPH :1985 Visit Date:11/18/2024 Inpatient [...] 50 mg Tab) Procedure History EGD - esophagogastroduodenoscopy (11/18/2024), EGD - esophagogastroduodenoscopy (11/11/2023), Esophagogastroduodenoscopy (09/30/2023), I and D, Jaw. Discharge Vitals [...] EDT With: Carrol MULTANI, Mario Xiong Where: [facility] [address] [facility] [address] [place] [address]- Thursday 8:40 AM EDT With: Vic Carrion Where: [facility] [address], [place] [address]25 2:40 PM EST With: [...] Cap) See instructions take per office provided instructionsuntil you are taking 2 tablets three times per day Unchanged gabapentin (gabapentin 600 mg Tab) 2 Tablets By Mouth 3 times a day Chronic pain Duration: 30 Days Unchanged magnesium citrate By Mouth Unchanged Misc Prescription (BP cuff device and appropriate size please) See instructions HTN (hypertension) BP Device/ machine and cuff (size appropriate) Unchanged Misc Prescription (Misc DME Prescription) See instructions Cornell SAP Dressing 4 x 4 dressing Unchanged [...] common to have a (more content not included)...Normal [facility] SystemComment on above:Result Comment: Electronically Signed By: Andres GREER, Bhumika\.br\Date and Time Signed: 11/18/24 09:10EDB[facility] Office/Clinic Noteon [id number] Medicine Office/Clinic NoteFloyd [facility] Office/Clinic Note Chief Complaint right foot pain [...] created with voice recognition software. Occasional wrong-word or???ykkuh-g-vjcd??? substitutions may have occurred due to the [...] feels he needs further pain medication than dgdv-hsz-uydgjop prescribed he needs to reach out to his PCP or pain management as they are the ones who are prescribing those needs for him currently, and current presentation does not warrant the need for controlled substances further than what he is already prescribed. Discussed with patient that my personal review of the x-ray images in office appears to be negativefor any fracture noted in the concerning region, the radiologist will read tomorrow and we will notify the patient at that time of the official read of the x-ray. 1. Foot pain, right (M79.671: Pain in right foot) Please follow-up with your primary care provider in 3 to 5 days. Contact their office to schedule afollow-up appointment. You were seen and evaluated regards to right foot pain and swelling. You hadan x-ray of the right foot completed today which is negative for any acute fracture or dislocation,as read by in clinic providers. Continue to rest ice and elevate as needed for pain and swelling. You may return for any worsening or concerning symptoms. If no improvement x1 week of rest ice and elevation follow closely with primary care provider as he may need referral to orthopedics. Ordered: XR Foot 3+ Views Right Follow-up With When Contact Information Rachel ALBERTS, Vic Friedman, FAM, MED Additional Instructions: Patient Education How to [...] cirrhosis, alcoholic Megaloblastic anem (more content not included)...[facility] HospitalComment on above:Result Comment: Electronically Signed By: Harshad PARKER, Keith Underwood\.br\Date and Time Signed: 11/18/2517:59 EDTInpatient Patient Summaryon [id number] Patient SummaryInpatient Patient Summary [address] [address] [facility] Clinical Discharge Instructions PERSON INFORMATION Name: WILL RALPH PHYSICIANS Admitting Physician: Mario Evans MD Attending Physician: Mario Evans MD PCP: Vic Carrion Discharge Diagnosis: Cirrhosis Comment: PATIENT EDUCATION INFORMATION Instructions: Medication Leaflets: Follow up: Type Location Start Finish State Pain Management - Follow Up (FT) [facility] [place] 11/21/2024 8:30 AM 11/21/2024 8:45 AM Confirmed BADH Follow Up [facility] 11/21/2024 9:15 AM 11/21/2024 9:30 AM Confirmed [facility] 04/07/2025 8:40 AM 04/07/2025 9:00 [...] Refills: 0. Misc Prescription (Misc DME Prescription) Cornell SAP Dressing 4 x 4 dressing. Misc Prescription ([facility] Prescription) LiquidIV hydration. [facility] Prescription ([facility] Prescription) Muscle & joint balm [...] Tablets By Mouth every day. Refills: 3. Comment:[facility] HospitalMain OR PACU II Recordon [id number] OR PACU II RecordMain OR PACU II Record PACU Phase II Document Type FT Summary Primary Physician: Mario Evans MD Finalized Date/Time: 11/18/24 09:24:26 Pt. Name: WILL RALPH/Sex: 1985 Male Med Rec #: [id number] Physician: Mario Evans MD Financial #: [id number] Pt. Type: O Room/Bed: / Admit/Disch: 11/18/24 [...] and monitors body temperature Evaluates postoperative respiratory statusEvaluates postoperative cardiac status Evaluates postoperative neurological status [...] individualized perioperative plan of care The patient's rightto privacy is maintained The patient's value system, [...] with or improved from baseline levels established preoperativelyThe patient's cardiovascular status is consistent with or improved from baseline levels established preoperatively The patient's neurological status is consistent with or improved from baseline levels established preoperatively The patient demonstrates and/or reports adequate pain control throughout the perioperative period The patient received appropriate medication(s), safely administered during the perioperativeperiod Finalized By: Bhumika Campos RN Document Signatures Signed By: Bhumika Campos RN 11/18/24 09:24NoMarietta Memorial HospitalMain OR Preoperative Recordon [id number] OR Preoperative RecordMain OR Preoperative Record Holding Area Document Type FT Summary Primary Physician: Mario Evans MD Finalized Date/Time: 11/18/24 08:25:00 Pt. Name: WILL RALPH/Sex: 1985 Male Med Rec #: [id number] Physician: Mario Evans MD Financial #: [id number] Pt. Type: O Room/Bed: / Admit/Disch: 11/18/24 [...] or her perioperative plan of care The patient'sright to privacy is maintained Surgery Checklist FT [...] Signatures Signed By: Alondra Lopez RN 11/18/24 08:25[facility] Outpatient Surgery Discharge Instructionon [id number] Surgery Discharge InstructionOutpatient Surgery Discharge Instruction [place] [id number] Patient Discharge Instructions PERSON INFORMATION Name: JUSTIN WILL Friedman Date of : 1985 Current Date: 11/18/2024 [...] THE NEAREST EMERGENCY ROOM OR CALL 911 IJUSTIN AMOS J, have received the attached patient education materials/instructions and have verbalized understanding: May we do a follow up call? Yes No I was present when discharge instructions were given Patient Signature Date Clinican/Nurse Signature Date Follow up: Type Location Start Finish State Pain Management - Follow Up (FT) FT[facility] [place] 11/21/2024 8:30 AM 11/21/2024 8:45 AM Confirmed BADH Follow Up [facility] 11/21/2024 9:15 AM 11/21/2024 9:30 AM Confirmed [facility] 04/07/2025 8:40 AM 04/07/2025 9:00 [...] to serve you. Thank you for choosing [facility] HERE ARE THE MEDICATION CHANGES THAT [...] cuff (size appropriate). Refills: 0. Misc Prescription ([facility] DME Prescription) Cornell SAP Dressing 4 x 4 dressing. Mis Prescription ([facility]ME Prescription) LiquidIV hydration. Mis Prescription ([facility] Prescription) Muscle & joint balm [...] Refills: 3. PATIENT EDUCATION INFORMATION Instructions: Medication Leaflets:NormalAdena Health SystemAFPon [id number].tumor marker [Mass/Vol]4.3 ng/mLInvalid Interpretation Code0.0-6.9A[facility]a Health SystemComment on above:Result Comment: [facility] Electrochemiluminescence Immunoassay (ECLIA) Values obtained with different assay methods or kits cannot be used interchangeably. Results cannot be interpreted as absolute evidence of the presence or absence of malignant disease. This test is not interpretable in females. Performed at: [address] [id number] PhD Poncho PraterPerformed By: #### [id number] ####[facility] [address] [place], [place] [address]UBL w/ Auto Diffon [id number]/100 WBC (Bld)0.9 %Normal0.0-2.0[facility] Comment on above:Performed By: #### [id number] #### [facility] [address] [place], [place] [address]Grbkkgrfl/Leukocytes Auto (Bld) [Pure # fraction]0.0 E9/LNormal 0.0-0.2FMercy Health Perrysburg HospitalComment on above:Performed By: #### [id number] #### [facility] [address] [place], [place] [address]Koymmkalsaj (Bld) [#/Vol]0.2 E9/LNormal0.0-0.5FMercy Health Perrysburg HospitalComment on above:Performed By: #### [id number] #### [facility] [address] [place], [place] [address]Kndvcjkuici/100 WBC (Bld)4.2 %Normal0.0-8.0[facility]a Health SystemComment on above:Performed By: #### [id number] #### [facility] [address] [place], [place] [address]Yspnorqxnxp distribution width (RBC) [Ratio]15.3 %High10.9-14.2 [facility] Health SystemComment on above:Performed By: #### [id number] #### [facility] [address] [place], [place] [address]Uvjpxfffjr (Bld) [Volume fraction]41.8 %Tvremo35.7-49.0[facility] Health SystemComment on above:Performed By: #### [id number] #### [facility] [address] [place], [place] [address]Znjsfxmghk (Bld) [Mass/Vol]14.5 g/kHSbwysn66.5-17.5FMercy Health Perrysburg HospitalComment on above:Performed By: #### [id number] #### [facility] [address] [place] [address]Byvkccixspp (Bld) [#/Vol]1.0 E9/LNormal1.0-4.0[facility] Health SystemComment on above:Performed By: #### [id number] #### [facility] [address] [place] [address]Pxrlzmmocgq/100 WBC (Bld)22.4 %Dtfemz53.0-50.0[facility] Health SystemComment on above:Performed By: #### [id number] #### [facility] [address] [place] [address]RWR (RBC) [Entitic mass]36.4 qjIulm02.0-34.0[facility] Health SystemComment on above:Performed By: #### [id number] #### [facility] [address] [place] [address]ICGV (RBC) [Mass/Vol]34.7 g/tHGuinds31.4-36.0[facility] Health SystemComment on above:Performed By: #### [id number] #### [facility] [address] [place] [address]BDO (RBC) [Entitic vol]104.7 eXDumr85.0-100.0[facility]a Health SystemComment on above:Performed By: #### [id number] #### [facility] [address] [place] [address] [id number] (Bld) [#/Vol]0.4 E9/LNormal0.2-1.0A[facility]a Health SystemComment on above:Performed By: #### [id number] #### [facility] [address] [place] [address] 23464Qznckohogts (Bld) [#/Vol]2.8 E9/LNormal2.0-7.5FMercy Health Perrysburg HospitalComment on above:Performed By: #### [id number] #### [facility] [address] [place] [address] [place] [address]Zxvbywxwwky/100 WBC (Bld)62.8 %Prjozu86.0-75.0A[facility]a Health SystemComment on above:Performed By: #### [id number] #### [facility] [address] [place], [place] [address]Cedgafrd04.0 E9/NPyi542.0-500.0[facility] Comment on above:Performed By: #### [id number] #### [facility] [address], [place] [address]Ddsbglqg mean volume (Bld) [Entitic vol]8.2 fLNormal6.4-10.8 [facility] SystemComment on above:Performed By: #### [id number] #### [facility] [address] [place] [address] 15437BNY (Bld) [#/Vol]4.0 E12/LLow4.3-5.9[facility] Comment on above:Performed By: #### [id number] #### [facility] [address] [place] [address] 958[address]HFW corrected for nucl RBC Auto (Bld) [#/Vol]4.4 E9/LNormal 4.0-11.0[facility] Health SystemComment on above:Performed By: #### [id number] #### [facility] [address] [place] [address] 59856BKTze 06-47-8816Nbxtgsf [Mass/Vol]3.6 g/dLNormal3.3-5.0[facility] Health SystemComment on above:Performed By: #### [id number] #### [facility] [address], [place] [address]Dafyawm/Globulin (S) [Mass conc ratio]1.0Low1.1-2.2FMercy Health Perrysburg HospitalComment on above:Performed By: #### [id number] #### [facility] [address] [place] [address] 28300LPL [Catalytic activity/Vol]159 Int._Unit/AOkke11-01RohhfwAdena Health SystemComment on above:Performed By: #### [id number] #### [facility] [address], [place] [address]NEF No additional P-5'-P [Catalytic activity/Vol]46 Int._Unit/L Normal6-46A[facility] Health SystemComment on above:Performed By: #### [id number] #### [facility] [address], [place] [address]Kjxrs gap [Moles/Vol]8 mmol/LNormal6-16A[facility] Health SystemComment on above:Performed By: #### [id number] #### [facility] [address], [place] [address]RCW [Catalytic activity/Vol]59 Int._Unit/LHigh5-43A[facility] Health SystemComment on above:Performed By: #### [id number] #### [facility] [address], [place] [address]Xfuxjvbik [Mass/Vol]2.6 mg/dLHigh0.0-1.1FMercy Health Perrysburg HospitalComment on above:Performed By: #### [id number] #### [facility] [address] [place] [address] 21581Kpcrprw [Mass/Vol]9.0 mg/dLNormal8.9-11.1FMercy Health Perrysburg HospitalComment on above:Performed By: #### [id number] #### [facility] [address], [place] [address]Gaoaawqj [Moles/Vol]105 mmol/NHrgtgh973-630QrtqmwAdena Health SystemComment on above:Performed By: #### [id number] #### [facility] [address], [place] [address]JF2 [Moles/Vol]27 mmol/BVvoczp61-25VojkkjAdena Health System Comment on above:Performed By: #### [id number] #### [facility] [address], [place] [address]Cfhrrthcrb [Mass/Vol]0.5 mg/dLNormal0.5-1.3FMercy Health Perrysburg HospitalComment on above:Performed By: #### [id number] #### [facility] [address] [place] [address] 14591Qpojfnmj (S) [Mass/Vol]3.5 g/dLNormal1.4-4.0A[facility] Health SystemComment on above:Performed By: #### [id number] #### [facility] [address], [place] [address]Tnbtbgn [Mass/Vol]96 mg/uRUahkzm49-409QlxxasAdena Health SystemComment on above:Performed By: #### [id number] #### [facility] [address] [place] [address] 824[address]Ltupehutl [Moles/Vol]4.4 mmol/LNormal3.5-5.3FMercy Health Perrysburg HospitalComment on above:Performed By: #### [id number] #### [facility] [address] [place] [address]Ajuhool [Mass/Vol]7.1 g/dLNormal6.0-7.8A[facility] Health SystemComment on above:Performed By: #### [id number] #### [facility] [address] [place] [address] 928[address]Sgdbqg [Moles/Vol]136 mmol/EDcduff526-536KfpuyvAdena Health SystemComment on above:Performed By: #### [id number] #### [facility] [address], [place] [address]Odcn nitrogen [Mass/Vol]12 mg/dLNormal5-21A[facility]a Health SystemComment on above:Performed By: #### [id number] #### [facility] [address] [place] [address] 09671Gcih nitrogen/Creatinine [Mass ratio]24 No JgvjyIzhx72-16UwgfjuAdena Health SystemComment on above:Performed By: #### [id number] #### [facility] [address], [place] [address]VM & PTTon 21-40-4714iULI Coag (PPP) [Time]38.8 second(s)High 25.1-36.5FMercy Health Perrysburg HospitalComment on above:Result Comment: Parameter 15 days - 4 weeks 1 - [...] the same coagulation reagent and instrumentation as [facility]. Currently there are no coagulation studies available worldwide for children to 14 days, andno normal ranges. Heparin therapeutic range (represented by Anti-Factor Xa activity of 0.2 - 0.4 U/mL) corresponds to PTT of 56.6 - 109.0 sec.Performed By: #### [id number] #### [facility] [address], [place] [address]VQD Coag (PPP) [Relative time]1.33 {INR}Invalid Interpretation JuanAdena Health SystemComment on above:Result Comment: INR results are specifically intended to assess patients stabilized on long-term Anticoagulation therapy suggested INR???s ???Less Intensive Anticoagulation??? 2.0 ??? 3.0 Conventional Range 3.0 ??? 4.5Performed By: #### [id number] #### [facility] [address], [place] [address]GV Coag (PPP) [Time]14.9 second(s)High9.4-12.5FMercy Health Perrysburg HospitalComment on above:Result Comment: 15 days - 4 weeks 1 - [...] the same coagulation reagent and instrumentation as [facility]. Currently there are no coagulation studies available worldwide for children to 14 days, andno normal ranges.Performed By: #### [id number] #### [facility] [address], [place] [address]IR Liveron 89-32-8911IT LiverExam Date/Time: 11/11/2024 08:57 EST Reason for Exam: [...] Camacho Almeida MD Transcribed by: JUNIOR Technologist: VeronicaAdena Health SystemeGFRon 36-09-9959sYUE279 mL/min/1.73 u0Ztkguf>=59Adena Health SystemComment on above:Performed By: #### [id number] #### [facility] [address], [place] [address]Guygkffyjq Visit Summaryon 64-55-8440Yzsgqcspbf Visit Summary Ambulatory Visit Summary WILL RALPH [...] 50 mg Tab) Procedures Performed EGD - esophagogastroduodenoscopy (11/11/2023), Esophagogastroduodenoscopy (09/30/2023), I and D, Jaw. Discharge Vitals Heart Rate (Peripheral) 78 Blood Pressure 138/78 Height 170 cm Height 67 in Weight 78.5 kg Weight 173.063 lb BMI 27.16 What to do next Scheduled Follow-Up Appointments Thursday 8:30 AM EST With: Where: [facility] Thursday 8:15 AM EDT With: Where: [facility] Thursday 9:15 AM EDT With: Carrol MULTANI, Mario Xiong Where: [facility] [address] [place] [address]- Thursday 8:40 AM EDT With: Vic Carrion Where: [facility] [address], [place] [address] 2:40 PM EST With: Kavon Lu DO Where: [facility] You Need to Schedule the Following Appointments Follow Up with Rachel ALBERTS, Vic [place], KEI, MED When: In 6 months Comments: sooner if needed. keep specialists appointments. Where: [address], [address] [facility] [address] [place] [phone] Medications What How Much When Why Instructions Unchanged carvedilol (Coreg 6.25 mg Tab) 1 Tablets By Mouth 2 times a day HTN (hypertension) Pickupat [facility] Unchanged furosemide (furosemide 20 mg Tab) 1 Tablets By Mouth Every day Unchanged magnesium citrate By Mouth Unchanged Misc Prescription (BP cuff device and appropriate size please) See instructions HTN (hypertension) BP Device/ machine and cuff (size appropriate) Unchanged Misc Prescription (lactulose (lactulose 10 g/ 15 mL Oral Syrup)) 0 Unchanged Misc Prescription (Misc DME Prescription) See instructions Cornell SAP Dressing 4 x 4 dressing Unchanged Misc Prescription (Misc DME Prescription) See instructions LiquidIV hydration Unchanged Misc Prescription (Misc DME Prescription) See instructions Muscle & joint balm CBD 880mg Unchanged naloxone (Narcan 4 mg/ 0.1 mL nasal spray) 4 Milligram Nasal Inhalation As Directed Pain for suspected overdose symptoms Pickup at [facility] Unchanged ondansetron (Zofran ODT 4 mg Tab) 1 Tablets By Mouth 3 times a day as needed for Nausea Nausea Unchanged oxycodone (oxyCODONE 5 mg Tab) 0.5 tab By Mouth Every 6 hours as needed for for pain Peripheral vascular disease Leg pain for leg pain- severe pain only Pickup at [facility] Unchanged spironolactone (spironolactone 50 mg Tab) 1 Tablets By Mouth Every day Pharmacy Information [facility]: [address] [place], [place] [id number] [phone] Allergies Definity (Back Pain) amoxicillin (Unknown) penicillin [...] share your experience wi (more content not included)...[facility] Office/Clinic Noteon 04-56-3518Dihgjg Medicine Office/Clinic NoteFaboston hope medical center Medicine Office/Clinic Note Chief Complaint New to [...] states he saw a vascular doctor in [place] from when he was at [facility]. 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 He denies numbness and tingling. He denies [...] states he is only been taking his spironolactone.His blood pressure is running elevated today. Patient [...] cellulitis Patient went to a specialist in [place]- Vascular Dr Bertrand - Angiogram was done, [...] medication and was in severe pain over thesummer. Patient with no complaints of chest pain [...] with hematology.- [facility] Liver enzymes are elevated with recent lab work but trends up and down. patient has stopped (more content not included)...[facility] HospitalComment on above:Result Comment: Electronically Signed By: Vic Carrion\.chidi\Date and Time Signed: 10/05/24 09:53 ESTFree K+L Lt Chains,Qn,Son 54-32-2951Hbrbsshdirkzua light chains.kappa.free (S) [Mass/Vol]21.1 mg/LHigh 3.3-19.4Fmorris [facility] Medical CenterComment on above:Performed By: #### [id number] #### [facility] [address] [place] [address] 147[address]Kzavakkllcdexn light chains.kappa.free/Immunoglobulin light chains.lambda.free (S) [Mass ratio]1.50Invalid Interpretation Code0.26-1.65 [facility] CenterComment on above:Result Comment: Performed at: [facility] [id number] PhD Poncho PraterPerformed By: #### [id number] #### [facility] [address], [place] [address]Pidjumejiwyyrc light chains.lambda.free [Mass/Vol]14.1 mg/L Invalid Interpretation Code5.7-26.3FMercy Health Perrysburg HospitalComment on above: Performed By: #### [id number] #### [facility] [address], [place] [address]Wulfuskaepace 46-97-1772Exffgsxpjbf [Mass/Vol]mg/wIEbi69-374 [facility] SystemComment on above:Result Comment: Performed at: [facility] [id number] PhD Poncho PraterPerformed By: #### [id number] #### [facility] [address] [place] [address]IXI and PE, Serumon 93-83-0546Npflaia [Mass/Vol]3.4 g/dLInvalid Interpretation Code2.9-4.4FMercy Health Perrysburg HospitalComment on above:Performed By: #### [id number] #### [facility] [address] [place] [address]Dftuiex/Globulin [Mass ratio]1.0 {ratio}Invalid Interpretation Code0.7-1.7FMercy Health Perrysburg HospitalComment on above:Performed By: #### [id number] #### [facility] [address], [place] [address]Ksjnk 1 globulin Elph [Mass/Vol]0.2 g/dLInvalid Interpretation Code0.0-0.4FMercy Health Perrysburg HospitalComment on above:Performed By: #### [id number] #### [facility] [address], [place] [address]Ocawk 2 globulin Elph [Mass/Vol]0.5 g/dLInvalid Interpretation Code0.4-1.0FishUniversity of Maryland St. Joseph Medical CenterComment on above:Performed By: #### [id number] #### [facility] [address], [place] [address]Cukq globulin Elph [Mass/Vol]1.0 g/dLInvalid Interpretation Code0.7-1.3FMercy Health Perrysburg HospitalComment on above:Performed By: #### [id number] #### [facility] [address], [place] [address]Rator globulin Elph [Mass/Vol]1.9 g/dLHigh0.4-1.8A[facility] Health SystemComment on above:Performed By: #### [id number] #### [facility] [address], [place] [address]Vuckpwhc (S) [Mass/Vol]3.7 g/dLInvalid Interpretation Code 2.2-3.9A[facility] Health SystemComment on above:Performed By: #### [id number] #### [facility] [address], [place] [address]GxY [Mass/Vol]653 mg/kNGsef58-405ZhqpzkAdena Health System Comment on above:Performed By: #### [id number] #### [facility] [address], [place] [address]PuZ [Mass/Vol]1726 mg/rGSbto192-2926QurmpuAdena Health System Comment on above:Performed By: #### [id number] #### [facility] [address], [place] [address]GyA [Mass/Vol]72 mg/dLInvalid Interpretation Fqbu02-226GwwltnAdena Health SystemComment on above:Performed By: #### [id number] #### [facility] [address], [place] [address]Unjirfujbpxxsn IEP [Interp]CommentInvalid Interpretation Code [facility] SystemComment on above:Result Comment: No monoclonality detected.Performed By: #### [id number] #### [facility] [address], [place] [address]Ogbjdwnlbu comment Parth (Report)CommentInvalid Interpretation CodeAdena Health SystemComment on above:Result Comment: Protein electrophoresis scan will follow via computer, mail, or rn occupational delivery. Performed at: [facility] [id number] PhD Poncho Lakhaniformed By: #### [id number] #### [facility] [address] [place] [address]Suhkxys [Mass/Vol]7.1 g/dLInvalid Interpretation Code6.0-8.5 [facility] SystemComment on above:Performed By: #### [id number] #### [facility] [address], [place] [address]Udkxves.monoclonal Elph [Mass/Vol]Not ObservedInvalid Interpretation CodeNot ObservedAdena Health SystemComment on above: Performed By: #### [id number] #### [facility] [address] [place] [address]SRT w/ Auto Diffon 53-74-6551Awmbaubbk/100 WBC (Bld)0.6 %Normal 0.0-2.0A[facility] Health SystemComment on above:Performed By: #### [id number] #### [facility] [address] [place] [address]32[address]Oktzztzla/Leukocytes Auto (Bld) [Pure # fraction]0.0 E9/LNormal 0.0-0.2Fisher [facility] CenterComment on above:Performed By: #### [id number] #### [facility] [address] [place] [address] 20256Mtyblyeqafr (Bld) [#/Vol]0.2 E9/LNormal0.0-0.5[facility] CenterComment on above:Performed By: #### [id number] #### [facility] [address] [place] [address] 518[address]Qydjabkeoug/100 WBC (Bld)3.5 %Normal0.0-8.0A[facility] Health SystemComment on above:Performed By: #### [id number] #### [facility] [address], [place] [address]Fezodvibkrt distribution width (RBC) [Ratio]15.1 %High10.9-14.2 [facility] SystemComment on above:Performed By: #### [id number] #### [facility] [address] [place] [address]Tzelpteemf (Bld) [Volume fraction]38.8 %Bbiiut93.7-49.0A[facility] Health SystemComment on above:Performed By: #### [id number] #### [facility] [address] [place] [address] 308[address]Hdqsjjcmsf (Bld) [Mass/Vol]13.9 g/cDVdwboq07.5-17.5FMercy Health Perrysburg HospitalComment on above:Performed By: #### [id number] #### [facility] [address] [place] [address] 06686Mzbgkjjwvvc (Bld) [#/Vol]1.1 E9/LNormal1.0-4.0[facility] Health SystemComment on above:Performed By: #### [id number] #### [facility] [address] [place] [address] 45[address]Kqcjaemtnst/100 WBC (Bld)25.0 %Tcgxoz73.0-50.0[facility] Health SystemComment on above:Performed By: #### [id number] #### [facility] [address] [place] [address] 22947ZEE (RBC) [Entitic mass]37.0 suJqxk08.0-34.0[facility] Health SystemComment on above:Performed By: #### [id number] #### [facility] [address] [place] [address] 50[address]RWXF (RBC) [Mass/Vol]35.8 g/mBTclzva18.4-36.0[facility] Health SystemComment on above:Performed By: #### [id number] #### [facility] [address] [place] [address] 069[address]VAN (RBC) [Entitic vol]103.5 rJKwou12.0-100.0[facility] Health SystemComment on above:Performed By: #### [id number] #### [facility] [address] [place] [address] 59[address]Skcgvehex (Bld) [#/Vol]0.4 E9/LNormal0.2-1.0[facility] Health SystemComment on above:Performed By: #### [id number] #### [facility] [address] [place] [address] 19622Fnbrgyjzkkw (Bld) [#/Vol]2.8 E9/LNormal2.0-7.5FMercy Health Perrysburg HospitalComment on above:Performed By: #### [id number] #### [facility] [address] [place] [address] 19207Lpsacmspyai/100 WBC (Bld)62.7 %Ovzpjf38.0-75.0[facility] Health SystemComment on above:Performed By: #### [id number] #### [facility] [address] [place] [address] 847[address]Tptygkzh05.0 E9/CQwk590.0-500.0[facility] Comment on above:Result Comment: Peripheral smear review performed.Performed By: #### [id number] #### [facility] [address] [place] [address]Zwrdstys mean volume (Bld) [Entitic vol]7.7 fLNormal6.4-10.8 [facility] SystemComment on above:Performed By: #### [id number] #### [facility] [address] [place] [address]16[address]IXH (Bld) [#/Vol]3.7 E12/LLow4.3-5.9[facility] Comment on above:Performed By: #### [id number] #### [facility] [address] [place] [address] 45059JAR corrected for nucl RBC Auto (Bld) [#/Vol]4.5 E9/LNormal 4.0-11.0[facility] Health SystemComment on above:Performed By: #### [id number] #### [facility] [address] [place], [place] [address]RBVFUSRJBAbprbez By: SYSTEM SYSTEM on 92-36-2228Terhtkd [Mass/Vol]3.7 g/dLNormal3.3 - 5.0 gm/dLRemisol ChemAlbumin/Globulin [Mass ratio] 1.0 {ratio}Low1.1 - 2.2Remisol ChemALP [Catalytic activity/Vol]178 [iU]/dHigh21 - 98 Int._Unit/LRemisol ChemALT No additional P-5'-P [Catalytic activity/Vol]49 [iU]/dHigh6 - 46 Int._Unit/LRemisol ChemAnion gap [Moles/Vol]10 mmol/LNormal6 - 16 mEq/LRemisol ChemAST [Catalytic activity/Vol]72 [iU]/dHigh5 - 43 Int._Unit/L Remisol ChemBilirubin [Mass/Vol]5.2 mg/dLHigh0.0 - 1.1 mg/dLRemisol ChemCalcium [Mass/Vol]9.4 mg/dLNormal8.9 - 11.1 mg/dLRemisol ChemChloride [Moles/Vol]100 mmol/YCnm044 - 111 mmol/LRemisol ChemCO2 [Moles/Vol]28 mmol/SInkgqg79 - 31 mmol/LRemisol ChemCreatinine [Mass/Vol]0.5 mg/dLNormal0.5 - 1.3 mg/dLRemisol QjersAIE896 mL/min/1.73 i9Ejjkmw>=59mL/min/1.73 b4Yuvofxa ChemFerritin [Mass/Vol]343 ng/jQTqcb73 - 336 ng/mLRemisol ChemGlobulin (S) [Mass/Vol]3.7 g/dL Normal1.4 - 4.0 gm/dLRemisol ChemGlucose [Mass/Vol]125 mg/wXTaadyk31 - 199 mg/dL Remisol ChemIron [Mass/Vol]279 ug/hLRikd43 - 153 mcg/dLRemisol ChemIron binding capacity [Mass/Vol]294 ug/pCUqqcjm746 - 400 mcg/dLRemisol ChemIron saturation [Mass fraction]95 %High20 - 50 %Remisol MofnSAW428 [iU]/dHigh93 - 218 Int._Unit/LRemisol ChemPotassium [Moles/Vol]4.1 mmol/LNormal3.5 - 5.3 mmol/L Remisol ChemProtein [Mass/Vol]7.4 g/dLNormal6.0 - 7.8 gm/dLRemisol ChemSodium [Moles/Vol]134 mmol/ULtb347 - 145 mmol/LRemisol ChemTransferrin [Mass/Vol]210 mg/gJVrvtat123 - 370 mg/dLRemisol ChemUrea nitrogen [Mass/Vol]9 mg/dLNormal5 - 21 mg/dLRemisol ChemUrea nitrogen/Creatinine [Mass ratio]18 mg/vlSlaikv92 - 20 Remisol ChemCMPon 96-30-2279Nihkoqp [Mass/Vol]3.7 g/dLNormal3.3-5.0[facility] Health SystemComment on above:Performed By: #### [id number] #### [facility] [address], [place] [address]Urrrzmm/Globulin (S) [Mass conc ratio]1.0Low1.1-2.2Fisher [facility] CenterComment on above:Performed By: #### [id number] #### [facility] [address], [place] [address]HAQ [Catalytic activity/Vol]178 Int._Unit/YNxul36-24GkcuvvAdena Health SystemComment on above:Performed By: #### [id number] #### [facility] [address], [place] [address]WSS No additional P-5'-P [Catalytic activity/Vol]49 Int._Unit/L High6-46A[facility] Health SystemComment on above:Performed By: #### [id number] #### [facility] [address], [place] [address]Yrqbd gap [Moles/Vol]10 mmol/LNormal6-16[facility] Health SystemComment on above:Performed By: #### [id number] #### [facility] [address], [place] [address]QSC [Catalytic activity/Vol]72 Int._Unit/LHigh5-43[facility] Health SystemComment on above:Performed By: #### [id number] #### [facility] [address], [place] [address]Nybdyocux [Mass/Vol]5.2 mg/dLHigh0.0-1.1FMercy Health Perrysburg HospitalComment on above:Performed By: #### [id number] #### [facility] [address], [place] [address]Jvlrvql [Mass/Vol]9.4 mg/dLNormal8.9-11.1FMercy Health Perrysburg HospitalComment on above:Performed By: #### [id number] #### [facility] [address], [place] [address]Xafpjegj [Moles/Vol]100 mmol/VZjc491-058MkyvizAdena Health SystemComment on above:Performed By: #### [id number] #### [facility] [address], [place] [address]ZJ3 [Moles/Vol]28 mmol/DNpqoby45-75FhylsuAdena Health System Comment on above:Performed By: #### [id number] #### [facility] [address], [place] [address]Ulylcaqftu [Mass/Vol]0.5 mg/dLNormal0.5-1.3FMercy Health Perrysburg HospitalComment on above:Performed By: #### [id number] #### [facility] [address], [place] [address]Ualryhrt (S) [Mass/Vol]3.7 g/dLNormal1.4-4.0[facility] Health SystemComment on above:Performed By: #### [id number] #### [facility] [address], [place] [address]Zrgditt [Mass/Vol]125 mg/dQCztrja13-108PyfwzwAdena Health SystemComment on above:Performed By: #### [id number] #### [facility] [address], [place] [address]Qjntlzyev [Moles/Vol]4.1 mmol/LNormal3.5-5.3FMercy Health Perrysburg HospitalComment on above:Performed By: #### [id number] #### [facility] [address], [place] [address]Nzirmqc [Mass/Vol]7.4 g/dLNormal6.0-7.8[facility] Health SystemComment on above:Performed By: #### [id number] #### [facility] [address], [place] [address]Ziabll [Moles/Vol]134 mmol/UDhj443-989KtrxzjAdena Health SystemComment on above:Performed By: #### [id number] #### [facility] [address] [place] [address]Tzbl nitrogen [Mass/Vol]9 mg/dLNormal5-21[facility] Health SystemComment on above:Performed By: #### [id number] #### [facility] [address], [place] [address]Gtqz nitrogen/Creatinine [Mass ratio]18 No FzrikYcqemc10-32 [facility] SystemComment on above:Performed By: #### [id number] #### [facility] [address], [place] [address]Fcqsqshnoa 71-83-9272Yswvsgvi [Mass/Vol]343 ng/lLEklk49-310 [facility] SystemComment on above:Performed By: #### [id number] #### [facility] [address], [place] [address]DUFTQLJZANOwgszlu By: SYSTEM SYSTEM on 58-73-7919Ekostogox/100 WBC (Bld)0.6 %Normal0.0 - 2.0 %Remisol HemeBasophils/Leukocytes Auto (Bld) [Pure # fraction]0.0 E9/LNormal0.0 - 0.2 E9/LRemisol HemeEosinophils (Bld) [#/Vol]0.2 E9/LNormal0.0 - 0.5 E9/LRemisol HemeEosinophils/100 WBC (Bld)3.5 %Normal0.0 - 8.0 %Remisol HemeErythrocyte distribution width (RBC) [Ratio]15.1 %High10.9 - 14.2 %Remisol HemeHematocrit (Bld) [Volume fraction]38.8 %Qoevtz01.7 - 49.0 % Remisol HemeHemoglobin (Bld) [Mass/Vol]13.9 g/qWPzfnid67.5 - 17.5 gm/dLRemisol HemeLymphocytes (Bld) [#/Vol]1.1 E9/LNormal1.0 - 4.0 E9/LRemisol Heme Lymphocytes/100 WBC (Bld)25.0 %Zshejo48.0 - 50.0 %Remisol HemeMCH (RBC) [Entitic mass]37.0 vcMwtg44.0 - 34.0 pgRemisol HemeMCHC (RBC) [Mass/Vol]35.8 g/dLNormal 31.4 - 36.0 gm/dLRemisol HemeMCV (RBC) [Entitic vol]103.5 aHTtet50.0 - 100.0 fL Remisol HemeMonocytes (Bld) [#/Vol]0.4 E9/LNormal0.2 - 1.0 E9/LRemisol Heme Monocytes/100 WBC (Bld)8.2 %Normal4.0 - 14.0 %Remisol HemeNeutrophils (Bld) [#/Vol]2.8 E9/LNormal2.0 - 7.5 E9/LRemisol HemeNeutrophils/100 WBC (Bld)62.7 % Zblywp28.0 - 75.0 %Remisol IauxWbacgxop38.0 E9/JCvn810.0 - 500.0 E9/LRemisol HemeComment on above:Result Comment: Peripheral smear review performed.Platelet mean volume (Bld) [Entitic vol]7.7 fLNormal6.4 - 10.8 fLRemisol HemeRBC (Bld) [#/Vol]3.7 E12/LLow4.3 - 5.9 E12/LRemisol HemeWBC corrected for nucl RBC Auto (Bld) [#/Vol]4.5 E9/LNormal4.0 - 11.0 E9/LRemisol HemeIronon 62-71-9014Pmya [Mass/Vol]279 microgram/vSEnpj58-393TdtzkxAdena Health SystemComment on above: Performed By: #### [id number] #### [facility] [address], [place] [address]Fbna Saturationon 86-06-1344Yieo binding capacity [Mass/Vol]294 microgram/mSJcchob445-028ZdnncmAdena Health SystemComment on above:Performed By: #### [id number] #### [facility] [address], [place] [address]Qvdz saturation [Mass fraction]95 %Ldex38-49RslmieAdena Health SystemComment on above:Performed By: #### [id number] #### [facility] [address], [place] [address]SAGto 73-84-8318XXE713 Int._Unit/GChya02-524NqdpfsAdena Health SystemComment on above:Performed By: #### [id number] #### [facility] [address], [place] [address]Exdiytccvafjg 70-97-6938Ohimqkwlyhh [Mass/Vol]210 mg/dLNormal 200-370Adena Health SystemComment on above:Order Comment: Transferrin order added by Discern Rule: gl_ftmc_add_iron_trans .Performed By: #### [id number] #### [facility] [address], [place] [address]kKVNkn 51-61-9556wGRE476 mL/min/1.73 z5Bybvbj>=59Adena Health SystemComment on above:Performed By: #### [id number] #### [facility] [address], [place] [address]Tdhlqmvpzs Visit Summaryon 69-00-0777Xlqocorwya Visit Summary Ambulatory Visit Summary WILL RALPH [...] DME Prescription) Misc Prescription (Misc DME Prescription) bifidobacterium-lactobacillus (bifidobacterium-lactobacillus oral tablet) carvedilol (Coreg 6.25 mg Tab) cholecalciferol (cholecalciferol 50,000 intl units oral capsule) folic acid (folic acid 1 mg Tab) magnesium citrate multivitamin (Tab-A-Scott oral tablet) naloxone (Narcan 4 mg/0.1 mL nasal spray) ondansetron (Zofran ODT 4 mg Tab) oxycodone (oxyCODONE 5 mg Tab) spironolactone (spironolactone 50 mg Tab) Procedures Performed EGD - esophagogastroduodenoscopy (11/11/2023), Esophagogastroduodenoscopy (09/30/2023), I and D, Jaw. Discharge Vitals Temperature (Temporal Artery) 36.9 ???C Heart Rate (Peripheral) 70 Respiratory Rate 18 Blood Pressure 146/68 Height 170 cm Height 67 in Weight 76.6 kg Weight 168.874 lb BMI 26.51 What to do next Scheduled Follow-Up Appointments 2024 1:20 PM EST With: Kavon Lu DO Where: Oncology Thursday 8:15 AM EDT With: Where: [facility] Surgical Services Thursday 9:15 AM EDT With: Carrol MULTANI, Mario Xiong Where: [facility] [address] [place] [address] [place] [phone]- You Need to Complete the Following Ammonia Level, Blood, Routine collect, 08/19/24, Order for future visit, Lab Collect, Cirrhosis, Print Label By Order Location Lipid Panel, Blood, Routine collect, 08/19/24, Order for future visit, Lab Collect, Screening for cardiovascular condition, Print Label By Order Location PSA Screen, Total, Blood, Routine collect, 08/19/24, Order for future visit, Lab Collect, Screeningfor prostate cancer, Print Label By Order Location Medications What How Much When Why Instructions New furosemide (furosemide 20 mg Tab) 1 Tablets By Mouth Every day New Misc Prescription (lactulose (lactulose 10 g/ 15 mL Oral Syrup)) 0 Unchanged bifidobacterium-lactobacillus (bifidobacterium-lactobacillus oral tablet) 1 Tablets By Mouth Every [...] Misc Prescription (Misc DME Prescription) See instructions [employer] Dressing 4 x 4 dressing Contact [...] Allergies Definity (Back Pain (more content not included)...[facility] Medicine Office/Clinic Noteon [phone] Medicine Office/Clinic NoteFaboston [facility] Note Chief Complaint patient in [...] states he is only been taking his spironolactone.His blood pressure is running elevated today. Patient [...] medication and was in severe pain over thesummer. Patient with no complaints of chest pain [...] medical support in addressing this problem. Your BMIand weight management will be followed at subsequent visits. 2. Cirrhosis (K74.60: Unspecified cirrhosis of liver) Chronic and stable Patient to continue to avoid alcohol or hepatotoxic agents patient to continue to follow with Dr. Evans and Dr. Valdez with hematology.- he has since stopped seeing [facility] Hepatology patient patient has stopped taking his medication-advised against this patient encouraged to to continue furosemide 20 mg once daily, lactulose 20 g 4 times a day, spironolactone 50 mg daily, and potassium chloride as needed. Encouraged daily weights He is on multivitamins-encouraged continued use Patient has self-stopped taking CellCept and other vitamins including folic acid, folate/thiamine. Patient has stopped taking lactulose as well. Encouraged close monitoring and will recheck ammonia levels at the next lab draw in September Ordered: furosemide, 20 mg = 1 tab(s), Oral, Daily, # 90 tab(s), Refills(s) 3, Pharmacy: [id number], 170, cm, 04/29/24 9:16:00 EDT, Height/Length Dosing, 70.1, kg, 04/29/24 9:16:00 EDT, Weight Dosing Ammonia Level 3. Esophageal varices (I85.00: Esophageal varices without bleeding) Continue to follow with Dr. Evans, encouraged good blood pressure control, avoiding any alcohol or esophageal irritation, continue to monitor platelets for signs of bleeding 4. HTN (hypertension) (I10: Essential (primary) hypertension) Bloo (more content not included)...NormalAdena Health SystemComment on above:Result Comment: Electronically Signed By: Loreta Padilla\.br\Date and Time Signed: 08/19/24 17:26 ESTCBC w/ Auto Diffon 08-11-2024 Basophils/100 WBC (Bld)0.9 %Normal0.0-2.0Adena Health SystemComment on above:Performed By: #### [id number] #### [facility] [address], [place] [address]Janqdnebv/Leukocytes Auto (Bld) [Pure # fraction]0.0 E9/LNormal 0.0-0.2FMercy Health Perrysburg HospitalComment on above:Performed By: #### [id number] #### [facility] [address], [place] [address]Rrqbqxekjaq (Bld) [#/Vol]0.2 E9/LNormal0.0-0.5[facility] CenterComment on above:Performed By: #### [id number] #### [facility] [address], [place] [address]Ssasrgdreim/100 WBC (Bld)3.8 %Normal0.0-8.0Adena Health SystemComment on above:Performed By: #### [id number] #### [facility] [address] [place] [address]Ykxpzgdqlxi distribution width (RBC) [Ratio]15.7 %High10.9-14.2 [facility] Health SystemComment on above:Performed By: #### [id number] #### [facility] [address] [place] [address]Qmyvfsblys (Bld) [Volume fraction]37.6 %Low37.7-49.0Adena Health SystemComment on above:Performed By: #### [id number] #### [facility] [address] [place] [address]Dqwfrqhhjm (Bld) [Mass/Vol]13.1 g/dLLow13.5-17.5FMercy Health Perrysburg HospitalComment on above:Performed By: #### [id number] #### [facility] [address] [place] [address]Mhgeddshlcp (Bld) [#/Vol]1.1 E9/LNormal1.0-4.0Adena Health SystemComment on above:Performed By: #### [id number] #### [facility] [address] [place] [address]Xendunjfurz/100 WBC (Bld)24.1 %Jcbltb58.0-50.0Adena Health SystemComment on above:Performed By: #### [id number] #### [facility] [address] [place] [address]UBQ (RBC) [Entitic mass]36.9 crWcjl44.0-34.0Adena Health SystemComment on above:Performed By: #### [id number] #### [facility] [address] [place] [address]ICTS (RBC) [Mass/Vol]34.9 g/uAXmvpeu63.4-36.0Adena Health SystemComment on above:Performed By: #### [id number] #### [facility] [address] [place] [address]OCE (RBC) [Entitic vol]105.7 ePWbpe04.0-100.0Adena Health SystemComment on above:Performed By: #### [id number] #### [facility] [address] [place] [address]Byyxijesf (Bld) [#/Vol]0.5 E9/LNormal0.2-1.0Adena Health SystemComment on above:Performed By: #### [id number] #### [facility] [address] [place] [address]Ktjxmfisqfb (Bld) [#/Vol]2.8 E9/LNormal2.0-7.5FMercy Health Perrysburg HospitalComment on above:Performed By: #### [id number] #### [facility] [address] [place] [address]Yhbcarxypsp/100 WBC (Bld)60.0 %Cazrad12.0-75.0Adena Health SystemComment on above:Performed By: #### [id number] #### [facility] [address] [place] [address]Jzzlougt mean volume (Bld) [Entitic vol]8.8 fLNormal6.4-10.8 [facility] SystemComment on above:Performed By: #### [id number] #### [facility] [address] [place] [address]Mspavvttl (Bld) [#/Vol]70.0 E9/PTgr811.0-500.0Adena Health SystemComment on above:Result Comment: Peripheral smear review performed.Performed By: #### [id number] #### [facility] [address] [place] [address]FBL (Bld) [#/Vol]3.6 E12/LLow4.3-5.9[facility] Comment on above:Performed By: #### [id number] #### [facility] [address] [place] [address], [place] [address]YTW corrected for nucl RBC Auto (Bld) [#/Vol]4.7 E9/LNormal 4.0-11.0[facility] Cente[facility] CenterComment on above:Performed By: #### [id number] #### [facility] [address], [place] [address]DIYSSTHGXLsuarlm By: SYSTEM SYSTEM on 43-00-5495Toslsxx [Mass/Vol]3.4 g/dLNormal3.3 - 5.0 gm/dLRemisol ChemAlbumin/Globulin [Mass ratio] 1.0 {ratio}Low1.1 - 2.2Remisol ChemALP [Catalytic activity/Vol]193 [iU]/dHigh21 - 98 Int._Unit/LRemisol ChemALT No additional P-5'-P [Catalytic activity/Vol]39 [iU]/dNormal6 - 46 Int._Unit/LRemisol ChemAnion gap [Moles/Vol]8 mmol/LNormal6 - 16 mEq/LRemisol ChemAST [Catalytic activity/Vol]62 [iU]/dHigh5 - 43 Int._Unit/L Remisol ChemBilirubin [Mass/Vol]3.6 mg/dLHigh0.0 - 1.1 mg/dLRemisol ChemCalcium [Mass/Vol]9.1 mg/dLNormal8.9 - 11.1 mg/dLRemisol ChemChloride [Moles/Vol]103 mmol/LDhjuus868 - 111 mmol/LRemisol ChemCO2 [Moles/Vol]29 mmol/DMiwond71 - 31 mmol/LRemisol ChemCreatinine [Mass/Vol]0.5 mg/dLNormal0.5 - 1.3 mg/dLRemisol ZicdwRYH128 mL/min/1.73 l6Mnbijl>=59mL/min/1.73 j7Qbgdkyz ChemGlobulin (S) [Mass/Vol]3.4 g/dLNormal1.4 - 4.0 gm/dLRemisol ChemGlucose [Mass/Vol]110 mg/dL Aqobnm84 - 199 mg/dLRemisol ChemPotassium [Moles/Vol]4.3 mmol/LNormal3.5 - 5.3 mmol/LRemisol ChemProtein [Mass/Vol]6.8 g/dLNormal6.0 - 7.8 gm/dLRemisol Chem Sodium [Moles/Vol]136 mmol/MJcaisz059 - 145 mmol/LRemisol ChemUrea nitrogen [Mass/Vol]9 mg/dLNormal5 - 21 mg/dLRemisol ChemUrea nitrogen/Creatinine [Mass ratio]18 mg/wwUmofbs65 - 20Remisol ChemHEMATOLOGYOrdered By: SYSTEM SYSTEM on 39-04-5644Afglblbvh/100 WBC (Bld)0.9 %Normal0.0 - 2.0 %Remisol Heme Basophils/Leukocytes Auto (Bld) [Pure # fraction]0.0 E9/LNormal0.0 - 0.2 E9/L Remisol HemeEosinophils (Bld) [#/Vol]0.2 E9/LNormal0.0 - 0.5 E9/LRemisol Heme Eosinophils/100 WBC (Bld)3.8 %Normal0.0 - 8.0 %Remisol HemeErythrocyte distribution width (RBC) [Ratio]15.7 %High10.9 - 14.2 %Remisol HemeHematocrit (Bld) [Volume fraction]37.6 %Low37.7 - 49.0 %Remisol HemeHemoglobin (Bld) [Mass/Vol]13.1 g/dLLow13.5 - 17.5 gm/dLRemisol HemeLymphocytes (Bld) [#/Vol]1.1 E9/LNormal1.0 - 4.0 E9/LRemisol HemeLymphocytes/100 WBC (Bld)24.1 %Yfdwwz09.0 - 50.0 %Remisol HemeMCH (RBC) [Entitic mass]36.9 loGmen87.0 - 34.0 pgRemisol Heme MCHC (RBC) [Mass/Vol]34.9 g/tZQxabsg52.4 - 36.0 gm/dLRemisol HemeMCV (RBC) [Entitic vol]105.7 oHRvyh61.0 - 100.0 fLRemisol HemeMonocytes (Bld) [#/Vol]0.5 E9/LNormal0.2 - 1.0 E9/LRemisol HemeMonocytes/100 WBC (Bld)11.2 %Normal4.0 - 14.0 %Remisol HemeNeutrophils (Bld) [#/Vol]2.8 E9/LNormal2.0 - 7.5 E9/LRemisol HemeNeutrophils/100 WBC (Bld)60.0 %Cdedns23.0 - 75.0 %Remisol HemePlatelet mean volume (Bld) [Entitic vol]8.8 fLNormal6.4 - 10.8 fLRemisol HemePlatelets (Bld) [#/Vol]70.0 E9/KJba314.0 - 500.0 E9/LRemisol HemeComment on above:Result Comment: Peripheral smear review performed.RBC (Bld) [#/Vol]3.6 E12/LLow4.3 - 5.9 E12/LRemisol HemeWBC corrected for nucl RBC Auto (Bld) [#/Vol]4.7 E9/LNormal 4.0 - 11.0 E9/LRemisol HemeErythropoiet Lvlon 21-14-3186Uinuxihagshfha (EPO) Qn 26.3 mIU/mLHigh2.6-18.5FMercy Health Perrysburg HospitalComment on above:Result Comment: [employer] DxI 800 Immunoassay System Values obtained with different assay methods or kits cannot be used interchangeably. Results cannot be interpreted as absolute evidence of the presence or absence of malignant disease. Performed at: [address] [id number] PhD Poncho Lakhaniformed By: #### [id number] #### [facility] [address], [place] [address]Mspeiqnbvuycu 73-26-5122Uhpttxapbnd [Mass/Vol]mg/rZUho51-581 [facility] SystemComment on above:Result Comment: Performed at: [address] [id number] PhD Poncho Lakhaniformed By: #### [id number] #### [facility] [address], [place] [address]QDXElf 39-99-3064AHIX Gel InterpNegativeNormalAdena Health SystemComment on above:Performed By: #### [id number] #### [facility] [address], [place] [address]HMNNN BANKOrdered By: Maria Isabel Chavira on 24-34-4255MRNG Gel Interp Negative (07/09/24 8:29 AM)NormalFA[facility]FA[facility] [place] BB SubsectionDAT IgG/C3d TubeNegative (07/09/24 8:29 AM)NormalFAIRFAX COMMUNITY [facility] – [place] BB SubsectionCBC w/ Auto Diffon 07-09-2024 Basophils/100 WBC (Bld)0.8 %Normal0.0-2.0A[facility]a Health SystemComment on above:Performed By: #### [id number] #### [facility] [address], [place] [address]Ekhybxyku/Leukocytes Auto (Bld) [Pure # fraction]0.0 E9/LNormal 0.0-0.2FMercy Health Perrysburg HospitalComment on above:Performed By: #### [id number] #### [facility] [address], [place] [address]Elkelpbeycp (Bld) [#/Vol]0.2 E9/LNormal0.0-0.5FMercy Health Perrysburg HospitalComment on above:Performed By: #### [id number] #### [facility] [address] [place] [address]Jgcnncoikne/100 WBC (Bld)5.8 %Normal0.0-8.0A[facility] Health SystemComment on above:Performed By: #### [id number] #### [facility] [address], [place] [address]Nqoamnvgjtq distribution width (RBC) [Ratio]15.1 %High10.9-14.2 [facility] SystemComment on above:Performed By: #### [id number] #### [facility] [address], [place] [address]Gfuhylrgar (Bld) [Volume fraction]36.8 %Low37.7-49.0A[facility]a Health SystemComment on above:Performed By: #### [id number] #### [facility] [address] [place] [address]Poptwlrmtn (Bld) [Mass/Vol]12.7 g/dLLow13.5-17.5FMercy Health Perrysburg HospitalComment on above:Performed By: #### [id number] #### [facility] [address] [place] [address] 44[address]Gfyxpeipcvw (Bld) [#/Vol]0.9 E9/LLow1.0-4.0A[facility] Health SystemComment on above:Performed By: #### [id number] #### [facility] [address] [place] [address] 422[address]Xnbqasfjyve/100 WBC (Bld)23.1 %Caefww49.0-50.0A[facility] Health SystemComment on above:Performed By: #### [id number] #### [facility] [address] [place] [address] 05[address]CRZ (RBC) [Entitic mass]36.7 xrTfwm22.0-34.0A[facility] Health SystemComment on above:Performed By: #### [id number] #### [facility] [address] [place] [address] 85[address]YDON (RBC) [Mass/Vol]34.5 g/yTBowxmx07.4-36.0A[facility] Health SystemComment on above:Performed By: #### [id number] #### [facility] [address] [place] [address] 85[address]NCZ (RBC) [Entitic vol]106.4 aTTcjg73.0-100.0[facility] Health SystemComment on above:Performed By: #### [id number] #### [facility] [address] [place] [address] 297[address]Qukjrjrls (Bld) [#/Vol]0.5 E9/LNormal0.2-1.0[facility] Health SystemComment on above:Performed By: #### [id number] #### [facility] [address], [place] [address]Bxnxlnezzzk (Bld) [#/Vol]2.1 E9/LNormal2.0-7.5FMercy Health Perrysburg HospitalComment on above:Performed By: #### [id number] #### [facility] [address], [place] [address]Efwlbjowthm/100 WBC (Bld)57.0 %Ioeggt94.0-75.0[facility] Health SystemComment on above:Performed By: #### [id number] #### [facility] [address] [place] [address]Kmhpufje mean volume (Bld) [Entitic vol]9.5 fLNormal6.4-10.8 [facility] SystemComment on above:Performed By: #### [id number] #### [facility] [address] [place] [address] 74[address]Bnlhxdgno (Bld) [#/Vol]67.0 E9/IDac189.0-500.0A[facility] Health SystemComment on above:Result Comment: Peripheral smear review performed.Performed By: #### [id number] #### [facility] [address] [place] [address]MMY (Bld) [#/Vol]3.5 E12/LLow4.3-5.9[facility] Comment on above:Performed By: #### [id number] #### [facility] [address] [place] [address]FXS corrected for nucl RBC Auto (Bld) [#/Vol]3.7 E9/LLow 4.0-11.0A[facility] Health SystemComment on above:Performed By: #### [id number] #### [facility] [address] [place] [address]FJAEKLMAIHiqvrby By: SYSTEM SYSTEM on 08-97-5897Sdjlqtq [Mass/Vol]3.1 g/dLLow3.3 - 5.0 gm/dLRemisol ChemAlbumin/Globulin [Mass ratio]0.9 {ratio}Low1.1 - 2.2Remisol ChemALP [Catalytic activity/Vol]192 [iU]/dHigh21 - 98 Int._Unit/LRemisol ChemALT No additional P-5'-P [Catalytic activity/Vol]33 [iU]/dNormal6 - 46 Int._Unit/LRemisol ChemAnion gap [Moles/Vol]7 mmol/LNormal6 - 16 mEq/LRemisol ChemAST [Catalytic activity/Vol]56 [iU]/dHigh5 - 43 Int._Unit/L Remisol ChemBilirubin [Mass/Vol]3.1 mg/dLHigh0.0 - 1.1 mg/dLRemisol ChemCalcium [Mass/Vol]8.2 mg/dLLow8.9 - 11.1 mg/dLRemisol ChemChloride [Moles/Vol]105 mmol/L Hwppjm452 - 111 mmol/LRemisol ChemCO2 [Moles/Vol]26 mmol/AAwndvn57 - 31 mmol/L Remisol ChemCreatinine [Mass/Vol]0.5 mg/dLNormal0.5 - 1.3 mg/dLRemisol ChemeGFR 132 mL/min/1.73 e1Avvpgh>=59mL/min/1.73 s9Rplounh ChemFerritin [Mass/Vol]272 ng/iIEmzvbw16 - 336 ng/mLRemisol ChemGlobulin (S) [Mass/Vol]3.5 g/dLNormal1.4 - 4.0 gm/dLRemisol ChemGlucose [Mass/Vol]171 mg/lLUuubbi61 - 199 mg/dLRemisol Chem Iron [Mass/Vol]212 ug/dQRmbr14 - 153 mcg/dLRemisol ChemIron binding capacity [Mass/Vol]246 ug/eTNhq113 - 400 mcg/dLRemisol ChemIron saturation [Mass fraction]86 %High20 - 50 %Remisol ZfjdBEJ728 [iU]/dHigh93 - 218 Int._Unit/L Remisol ChemPotassium [Moles/Vol]4.0 mmol/LNormal3.5 - 5.3 mmol/LRemisol Chem Protein [Mass/Vol]6.6 g/dLNormal6.0 - 7.8 gm/dLRemisol ChemSodium [Moles/Vol]134 mmol/WXzf608 - 145 mmol/LRemisol ChemTransferrin [Mass/Vol]176 mg/jENbj975 - 370 mg/dLRemisol ChemUrea nitrogen [Mass/Vol]10 mg/dLNormal5 - 21 mg/dLRemisol ChemUrea nitrogen/Creatinine [Mass ratio]20 mg/ieLryxxh92 - 20Remisol ChemCMPon 68-96-1434Nallvhg [Mass/Vol]3.1 g/dLLow3.3-5.0[facility] Health SystemComment on above:Performed By: #### [id number] #### [facility] [address], [place] [address]Wqaybqf/Globulin (S) [Mass conc ratio]0.9Low1.1-2.2FMercy Health Perrysburg HospitalComment on above:Performed By: #### [id number] #### [facility] [address], [place] [address]DIO [Catalytic activity/Vol]192 Int._Unit/VEqbs53-33DhwpifAdena Health SystemComment on above:Performed By: #### [id number] #### [facility] [address], [place] [address]QJA No additional P-5'-P [Catalytic activity/Vol]33 Int._Unit/L Normal6-46A[facility] Health SystemComment on above:Performed By: #### [id number] #### [facility] [address], [place] [address]Usaow gap [Moles/Vol]7 mmol/LNormal6-16[facility] Health SystemComment on above:Performed By: #### [id number] #### [facility] [address], [place] [address]VGP [Catalytic activity/Vol]56 Int._Unit/LHigh5-43A[facility] Health SystemComment on above:Performed By: #### [id number] #### [facility] [address], [place] [address]Dyhabpdzo [Mass/Vol]3.1 mg/dLHigh0.0-1.1FMercy Health Perrysburg HospitalComment on above:Performed By: #### [id number] #### [facility] [address], [place] [address]Iytsuak [Mass/Vol]8.2 mg/dLLow8.9-11.1FMercy Health Perrysburg HospitalComment on above:Performed By: #### [id number] #### [facility] [address], [place] [address]Wwvfgkdb [Moles/Vol]105 mmol/NEkuqsy127-990BhsgqkAdena Health SystemComment on above:Performed By: #### [id number] #### [facility] [address], [place] [address]EF8 [Moles/Vol]26 mmol/PIzpehy30-86VpxphnAdena Health System Comment on above:Performed By: #### [id number] #### [facility] [address], [place] [address]Abfiwwdnbf [Mass/Vol]0.5 mg/dLNormal0.5-1.3FMercy Health Perrysburg HospitalComment on above:Performed By: #### [id number] #### [facility] [address], [place] [address]Lmewzscl (S) [Mass/Vol]3.5 g/dLNormal1.4-4.0[facility] Health SystemComment on above:Performed By: #### [id number] #### [facility] [address], [place] [address]Kskileh [Mass/Vol]171 mg/vNCxfpuw18-171EtvwspAdena Health SystemComment on above:Performed By: #### [id number] #### [facility] [address], [place] [address]Imsewhptk [Moles/Vol]4.0 mmol/LNormal3.5-5.3FMercy Health Perrysburg HospitalComment on above:Performed By: #### [id number] #### [facility] [address], [place] [address]Trfwxit [Mass/Vol]6.6 g/dLNormal6.0-7.8[facility] Health SystemComment on above:Performed By: #### [id number] #### [facility] [address], [place] [address]Rluuzv [Moles/Vol]134 mmol/ICdw927-467MkdgqfAdena Health SystemComment on above:Performed By: #### [id number] #### [facility] [address], [place] [address]Iaey nitrogen [Mass/Vol]10 mg/dLNormal5-21[facility] Health SystemComment on above:Performed By: #### [id number] #### [facility] [address], [place] [address]Tzyn nitrogen/Creatinine [Mass ratio]20 No DnupqEwtzfc11-43 [facility] SystemComment on above:Performed By: #### [id number] #### [facility] [address] [place] [address]LFV IgG/C3d.on 62-77-7763UYN IgG/C3d TubeNegativeNormalAdena Health SystemComment on above:Performed By: #### [id number] #### [facility] [address] [place] [address]Xonvrbhyyy 06-28-8373Saamdxdz [Mass/Vol]272 ng/nZAdctgy83-864 [facility] SystemComment on above:Performed By: #### [id number] #### [facility] [address], [place] [address]FCNRHGXIWNLenymjr By: SYSTEM SYSTEM on 35-64-9552Nsswdezil/100 WBC (Bld)0.8 %Normal0.0 - 2.0 %Remisol HemeBasophils/Leukocytes Auto (Bld) [Pure # fraction]0.0 E9/LNormal0.0 - 0.2 E9/LRemisol HemeEosinophils (Bld) [#/Vol]0.2 E9/LNormal0.0 - 0.5 E9/LRemisol HemeEosinophils/100 WBC (Bld)5.8 %Normal0.0 - 8.0 %Remisol HemeErythrocyte distribution width (RBC) [Ratio]15.1 %High10.9 - 14.2 %Remisol HemeHematocrit (Bld) [Volume fraction]36.8 %Low37.7 - 49.0 % Remisol HemeHemoglobin (Bld) [Mass/Vol]12.7 g/dLLow13.5 - 17.5 gm/dLRemisol Heme Lymphocytes (Bld) [#/Vol]0.9 E9/LLow1.0 - 4.0 E9/LRemisol HemeLymphocytes/100 WBC (Bld)23.1 %Rqrsyy83.0 - 50.0 %Remisol HemeMCH (RBC) [Entitic mass]36.7 pg High27.0 - 34.0 pgRemisol HemeMCHC (RBC) [Mass/Vol]34.5 g/dULfnvcj01.4 - 36.0 gm/dLRemisol HemeMCV (RBC) [Entitic vol]106.4 wVKrui17.0 - 100.0 fLRemisol Heme Monocytes (Bld) [#/Vol]0.5 E9/LNormal0.2 - 1.0 E9/LRemisol HemeMonocytes/100 WBC (Bld)13.3 %Normal4.0 - 14.0 %Remisol HemeNeutrophils (Bld) [#/Vol]2.1 E9/L Normal2.0 - 7.5 E9/LRemisol HemeNeutrophils/100 WBC (Bld)57.0 %Fsgrmg95.0 - 75.0 %Remisol HemePlatelet mean volume (Bld) [Entitic vol]9.5 fLNormal6.4 - 10.8 fL Remisol HemePlatelets (Bld) [#/Vol]67.0 E9/RYfw711.0 - 500.0 E9/LRemisol Heme Comment on above:Result Comment: Peripheral smear review performed.RBC (Bld) [#/Vol]3.5 E12/LLow4.3 - 5.9 E12/LRemisol HemeReticulocytes/100 RBC (Bld)1.9 % Normal0.5 - 2.2 %Remisol HemeWBC corrected for nucl RBC Auto (Bld) [#/Vol]3.7 E9/LLow4.0 - 11.0 E9/LRemisol HemeIronon 99-40-3861Ckmr [Mass/Vol]212 microgram/jMSswk07-456AbqkomAdena Health SystemComment on above:Performed By: #### [id number] #### [facility] [address], [place] [address]Pogi Saturationon 47-83-3255Srzy binding capacity [Mass/Vol]246 microgram/oFGpd869-338CkhefaAdena Health SystemComment on above:Performed By: #### [id number] #### [facility] [address] [place] [address] 762[address]Dijm saturation [Mass fraction]86 %Xrlk84-54OiwxcxAdena Health SystemComment on above:Performed By: #### [id number] #### [facility] [address] [place] [address] 91179DUAet 05-84-4751BFX178 Int._Unit/OXdmw11-747DnyorcAdena Health SystemComment on above:Performed By: #### [id number] #### [facility] [address] [place] [address] 70427Hjqbl Counton 60-69-7672Wapwrwbhkysjx/100 RBC (Bld)1.9 %Normal 0.5-2.2FMercy Health Perrysburg HospitalComment on above:Performed By: #### [id number] #### [facility] [address], [place] [address]Lrhmqxbbmlthb 34-95-6004Ustbpfkpehi [Mass/Vol]176 mg/dLLow 200-370Adena Health SystemComment on above:Performed By: #### [id number] #### [facility] [address] [place] [address] 42789xZHBoj 35-05-6953kTZY894 mL/min/1.73 h0Gpdowg>=59Adena Health SystemComment on above:Performed By: #### [id number] #### [facility] [address] [place], [place] [address]Fflzgblbpq Visit Summaryon 03-87-0231Oziqefsiav Visit Summary Ambulatory Visit Summary WILL RALPH :1985 Visit Date:06/09/2024 Ambulatory Visit Instructions Your Diagnosis Liver cirrhosis, alcoholic Alcohol use disorder in remission Elevated liver enzymes Hemolytic anemia Your Care Team Attending Physician - Carrol MULTANI, Mario Xiong Primary Care Physician - Loreta Padilla This Is Your Medications List carvedilol (Coreg 6.25 mg Tab) Contact prescribing physician if questions or concerns Misc Prescription (BP cuff device and appropriate size please) Misc Prescription (Misc DME Prescription) Misc Prescription (Misc DME Prescription) Misc Prescription (Misc DME Prescription) bifidobacterium-lactobacillus (bifidobacterium-lactobacillus oral tablet) cholecalciferol (cholecalciferol 50,000 intl units oral capsule) doxycycline (doxycycline monohydrate 100 mg oral capsule) folic acid (folic acid 1 mg Tab) furosemide (furosemide 20 mg Tab) lactulose (lactulose 10 g/15 mL Oral Syrup) multivitamin (Tab-A-Scott oral tablet) naloxone (Narcan 4 mg/0.1 mL nasal spray) ondansetron (Zofran ODT 4 mg Tab) oxycodone (oxyCODONE 5 mg Tab) potassium chloride (Potassium Chloride (Xqz-Xgjo-Ogt M20) 20 mEq oral tablet, extended release) spironolactone (spironolactone 50 mg Tab) Procedures Performed EGD - esophagogastroduodenoscopy (11/11/2023), Esophagogastroduodenoscopy (09/30/2023), I and D, Jaw. Discharge Vitals Heart Rate (Peripheral) 72 Blood Pressure 127/77 Height 170 cm Height 67 in Weight 74.2 kg Weight 163.24 lb BMI 25.67 What to do next Scheduled Follow-Up Appointments 2023 2:40 PM EST With: Kavon Lu DO Where: Oncology Thursday 3:00 PM EST With: Loreta Padilla Where: [facility] [address] [place] [address]- Thursday 9:15 AM EDT With: Carrol MULTANI, Mario Xiong Where: [facility] [address] [place] [address] [place] [address]- Medications What How Much When Why Instructions New carvedilol (Coreg 6.25 mg Tab) 1 Tablets By Mouth 2 times a day Refills: 3 Pickup at [facility] [address] Unchanged bifidobacterium-lactobacillus (bifidobacterium-lactobacillus oral tablet) 1 Tablets By Mouth Every [...] Misc Prescription (Misc DME Prescription) See instructions [employer] Dressing 4 x 4 dressing Contact [...] or concerns Unchanged potassium chloride (Potassium Chloride (Rbr-Hrii-Btr M20) 20 mEq oral tablet, extended release) 1 Tablets By Mouth 2 times a day Contact prescribing physician if questions or concerns Unchanged spironolactone (spironolactone 50 mg Tab) 1 Tablets By Mouth Every day Contact prescribing physician if questions o (more content not included)... [facility]/Cl[facility] Noteon 76-01-1515Ebnusetoabfspbqp Office/Clinic NoteGastroenterology Office/Clinic Note Chief Complaint Cirrhosis follow up HPI Staff Patient is a(n) year old male who presents today for a(n) 1 month follow-up. US/labs ordered for 11/2024. Recieved liver bx report from [facility], placed in chart. Need to review bx, US and labs to determine transplant status. Denies blood thinners. Denies GLP-1 agonists. Last visit 05/12/24 w/Dr. Evans: Assessment/Plan 1. Liver cirrhosis, alcoholic (K70.30: Alcoholic cirrhosis of liver without ascites) Sober for more than 2.5 years Liver biopsy was done at [facility], gradient was 14 mmHg Liver [...] fL High (05/24/24) Chloride: 102 mmol/L (05/24/24) Winn Absolute: 0.6 E9/L (05/24/24) CO2: 25 mmol/L (05/24/24) Winn Auto: 9.6 % (05/24/24) Creatinine: 0.5 mg/dL [...] 2.5 years Liver biopsy was done at [facility], gradient was 14 mmHg Liver biopsy report is reported steatosis and cirrhosis a (more content not included)...[facility] HospitalComment on above:Result Comment: Electronically Signed By: Carrol MULTANI, Mario Xiong\.br\Date and Time Signed: 06/09/24 14:42 EDTUS Liveron 07-27-2507NK LiverExam Date/Time: 05/24/2024 11:03 EDT Reason for Exam: [...] Melvin Varghese MD Transcribed by: JUNIOR Technologist: [facility] .Interpretation:on 19-70-4595FPO Ab IA QlCommentInvalid Interpretation Code [facility] SystemComment on above:Result Comment: Not infected with HCV unless early or acute infection is suspected (which may be delayed in an immunocompromised individual), or other evidence exists to indicate HCV infection. Performed at: [address] [id number] PhD Poncho Lakhaniformed By: #### [id number] #### [facility] [address], [place] [address]NXEia 89-41-5156FQZ.tumor marker [Mass/Vol]4.1 ng/mLInvalid Interpretation Code0.0-6.9Adena Health SystemComment on above:Result Comment: [facility] Electrochemiluminescence Immunoassay (ECLIA) Values obtained with different assay methods or kits cannot be used interchangeably. Results cannot be interpreted as absolute evidence of the presence or absence of malignant disease. This test is not interpretable in females. Performed at: [facility] [address] [place], [place] [id number] PhD Poncho Lakhaniformed By: #### [id number] #### [facility] [address], [place] [address]ENF Ab Scron 42-94-5782Oejcojlnzbfa M2 IgG Qn (S)<20.0Invalid Interpretation Code0.0-20.0Adena Health SystemComment on above:Result Comment: Negative 0.0 - 20.0 Equivocal 20.1 - 24.9 Positive >24.9 Mitochondrial (M2) Antibodies are found in 90-96% of patients with primary biliary cirrhosis. Performed at: [address] [id number] PhD Poncho Lakhaniformed By: #### [id number] #### [facility] [address] [place] [address] 49722NNO w/Reflex if POSon 18-72-2355Zhujeqe Ab Ql (S)Negative Invalid Interpretation CodeNegativeAdena Health SystemComment on above: Result Comment: Performed at: [address] [id number] PhD Poncho Lakhaniformed By: #### [id number] #### [facility] [address] [place] [address] 430[address]Tjokimb Ab Ql (S)NegativeInvalid Interpretation CodeNegative [facility] Health SystemComment on above:Result Comment: Performed at: [address] [id number] PhD Poncho PraterBanner Boswell Medical Centerformed By: #### [id number] #### [facility] [address] [place] [address]Arqcg Hepatitis A B C Panelon 36-00-3679WJU IgM IA QlNegative Invalid Interpretation CodeNegativeAdena Health SystemComment on above: Result Comment: A negative anti-HAV IgM result suggests no recent or current HAV infection.Performed By: #### [id number] #### [facility] [address], [place] [address]LYB core IgM IA QlNegativeInvalid Interpretation CodeNegative [facility] SystemComment on above:Performed By: #### [id number] #### [facility] [address], [place] [address]VTG surface Ag IA QlNegativeInvalid Interpretation CodeNegative [facility] SystemComment on above:Performed By: #### [id number] #### [facility] [address], [place] [address]YSX IgG IA QlNon-ReactiveInvalid Interpretation CodeNon ReactiveAdena Health SystemComment on above:Result Comment: Performed at: [address] [id number] PhD Poncho Lakhaniformed By: #### [id number] #### [facility] [address], [place] [address]Iunvl 1 Antitrpon 91-33-6758Qyjgp 1 antitrypsin [Mass/Vol]153 mg/dLInvalid Interpretation Dbrx20-596IebyrbAdena Health SystemComment on above:Result Comment: Performed at: [address] [id number] PhD Poncho Lakhaniformed By: #### [id number] #### [facility] [address] [place] [address] 48092Mrpkm 1 antitrypsin [Mass/Vol]159 mg/dLInvalid Interpretation Znhp06-592OqfnheAdena Health SystemComment on above:Result Comment: Performed at: [address] [id number] PhD Poncho Lakhaniformed By: #### [id number] #### [facility] [address], [place] [address]Hoasnzhnlweyzbw 93-39-4560Hqqrhfagyuota [Mass/Vol]18.6 mg/dL Invalid Interpretation Code16.0-31.0Adena Health SystemComment on above: Result Comment: Performed at: [address] [id number] PhD Poncho Lakhaniformed By: #### [id number] #### [facility] [address], [place] [address]Kpxpczxmjxszf [Mass/Vol]19.9 mg/dLInvalid Interpretation Code 16.0-31.0Adena Health SystemComment on above:Result Comment: Performed at: [address] [id number] [facility] Hospitalcharmaine [facility] Hospitalformed By: #### [id number] #### [facility] [address], [place] [address]Gtc Bs Abon 63-90-8229CPD surface Ab Ql (S)Non-ReactiveInvalid Interpretation CodeAdena Health SystemComment on above:Result Comment: Non Reactive: Not immune to HBV infection. Equivocal: Unable to determine if anti-HBs is present at levels consistent with immunity. Reactive: Anti-HBs concentration detected at greater than 10 mIU/mL. Individual is considered to be immune to infection with HBV. Performed at: [address] [id number] [facility] Hospitalcharmaine [facility] Hospitalformed By: #### [id number] #### [facility] [address], [place] [address]Dzevlfhwv A Virus (HAV) Antibody, Totalon 89-04-4048DOE Ab IA Ql (S)NegativeInvalid Interpretation CodeNegativeAdena Health System Comment on above:Result Comment: Comment: The HAV total antibody assay detects both IgG and IgM but does not differentiate between them. A negative result suggests susceptibility to infection. A positive result could be due to vaccination, previously resolved infection or active infection. Testing for HAV IgM should be performed if active HAV infection is suspected. [facility] offers profiles that will automatically reflex positive HAV total antibody results to IgM (e.g., panel #[id number] HAV Antibody w/ Rfx). Performed at: [address] [id number] [facility] Centercarl[facility] StaleyKettering Memorial Hospitalformed By: #### [id number] #### [facility] [address], [place] [address]LmE, Quant.on 70-61-7609DyL [Mass/Vol]1784 mg/uDFzye492-6732 [facility] SystemComment on above:Result Comment: Performed at: [address] [id number] [facility] Hospitalcharmaine PraterBanner Boswell Medical Centerformed By: #### [id number] #### [facility] [address], [place] [address]Clhhhj Muscle Abon 34-45-5308Wdkck smooth muscle IgG Qn (S)18 unit(s)Invalid Interpretation Code0-A[facility]a Health SystemComment on above:Result Comment: Negative 0 - 19 Weak positive 20 - 30 Moderate to strong positive >30 Actin Antibodies are found in 52-85% of patients with autoimmune hepatitis or chronic active hepatitis and in 22% of patients with primary biliary cirrhosis. Performed at: [facility] [address] [id number] PhD Poncho PraterPerformed By: #### [id number] #### [facility] [address], [place] [address]Xntq Directon 90-99-4278Mfjukjcyb.direct [Mass/Vol]1.1 mg/dL High0.0-0.4FMercy Health Perrysburg HospitalComment on above:Performed By: #### [id number] #### [facility] [address], [place] [address]FIZ w/ Auto Diffon 12-08-5133Qtlmlpttn/100 WBC (Bld)0.8 %Normal 0.0-2.0Adena Health SystemComment on above:Performed By: #### [id number] #### [facility] [address] [place] [address] 6[address]Auqsggsyw/Leukocytes Auto (Bld) [Pure # fraction]0.0 E9/LNormal 0.0-0.2FMercy Health Perrysburg HospitalComment on above:Performed By: #### [id number] #### [facility] [address] [place] [address] 18[address]Nzszshorcst (Bld) [#/Vol]0.2 E9/LNormal0.0-0.5FMercy Health Perrysburg HospitalComment on above:Performed By: #### [id number] #### [facility] [address], [place] [address]Jcfidkwqlye/100 WBC (Bld)3.4 %Normal0.0-8.0Adena Health SystemComment on above:Performed By: #### [id number] #### [facility] [address] [place] [address] 61791Uhopvztbeoc distribution width (RBC) [Ratio]16.9 %High10.9-14.2 [facility] Health SystemComment on above:Performed By: #### [id number] #### [facility] [address] [place] [address] 924[address]Fnxuwgsodh (Bld) [Volume fraction]35.2 %Low37.7-49.0Adena Health SystemComment on above:Performed By: #### [id number] #### [facility] [address] [place] [address] 92[address]Cmkngehevs (Bld) [Mass/Vol]12.1 g/dLLow13.5-17.5FMercy Health Perrysburg HospitalComment on above:Performed By: #### [id number] #### [facility] [address] [place] [address]Fatchtqxtcl (Bld) [#/Vol]1.0 E9/LNormal1.0-4.0A[facility]a Health SystemComment on above:Performed By: #### [id number] #### [facility] [address] [place] [address] 745[address]Rdhnufokfys/100 WBC (Bld)16.1 %Uaeazj78.0-50.0A[facility]a Health SystemComment on above:Performed By: #### [id number] #### [facility] [address] [place] [address] 35[address]IJE (RBC) [Entitic mass]36.0 mrGjqb37.0-34.0A[facility]a Health SystemComment on above:Performed By: #### [id number] #### [facility] [address] [place] [address] 565[address]VAPI (RBC) [Mass/Vol]34.3 g/jEFsifvs66.4-36.0A[facility] Health SystemComment on above:Performed By: #### [id number] #### [facility] [address] [place] [address] 86155PIK (RBC) [Entitic vol]104.9 hPGrpd79.0-100.0Adena Health SystemComment on above:Performed By: #### [id number] #### [facility] [address] [place] [address] 46545Ckpcxtcmx (Bld) [#/Vol]0.6 E9/LNormal0.2-1.0Adena Health SystemComment on above:Performed By: #### [id number] #### [facility] [address] [place] [address] 080[address]Dztxuhsddux (Bld) [#/Vol]4.2 E9/LNormal2.0-7.5FMercy Health Perrysburg HospitalComment on above:Performed By: #### [id number] #### [facility] [address] [place] [address] 21694Pgdremmchoa/100 WBC (Bld)70.1 %Nedhml58.0-75.0A[facility]a Health SystemComment on above:Performed By: #### [id number] #### [facility] [address] [place] [address] 659[address]Nwuoncgu mean volume (Bld) [Entitic vol]9.0 fLNormal6.4-10.8 [facility] SystemComment on above:Performed By: #### [id number] #### [facility] [address] [place] [address] 538[address]Drimawwbx (Bld) [#/Vol]81.0 E9/BEiy346.0-500.0A[facility]a Health SystemComment on above:Result Comment: Peripheral smear review performed.Performed By: #### [id number] #### [facility] [address] [place] [address] 42637EHO (Bld) [#/Vol]3.4 E12/LLow4.3-5.9[facility] Comment on above:Performed By: #### [id number] #### [facility] [address], [place] [address]NDE corrected for nucl RBC Auto (Bld) [#/Vol]6.0 E9/LNormal 4.0-11.0A[facility]a Health SystemComment on above:Performed By: #### [id number] #### [facility] [address], [place] [address]BTCXCWKCQNvtlqzx By: SYSTEM SYSTEM on 72-35-0619Qsadytj [Mass/Vol]3.5 g/dLNormal3.3 - 5.0 gm/dLRemisol ChemAlbumin/Globulin [Mass ratio] 0.9 {ratio}Low1.1 - 2.2Remisol ChemALP [Catalytic activity/Vol]219 [iU]/dHigh21 - 98 Int._Unit/LRemisol ChemALT No additional P-5'-P [Catalytic activity/Vol]57 [iU]/dHigh6 - 46 Int._Unit/LRemisol ChemAnion gap [Moles/Vol]10 mmol/LNormal6 - 16 mEq/LRemisol ChemAST [Catalytic activity/Vol]96 [iU]/dHigh5 - 43 Int._Unit/L Remisol ChemBilirubin [Mass/Vol]5.3 mg/dLHigh0.0 - 1.1 mg/dLRemisol Chem Bilirubin.direct [Mass/Vol]1.1 mg/dLHigh0.0 - 0.4 mg/dLRemisol ChemCalcium [Mass/Vol]9.0 mg/dLNormal8.9 - 11.1 mg/dLRemisol ChemChloride [Moles/Vol]102 mmol/HVvbhvl520 - 111 mmol/LRemisol ChemCO2 [Moles/Vol]25 mmol/LIplmfx27 - 31 mmol/LRemisol ChemCreatinine [Mass/Vol]0.5 mg/dLNormal0.5 - 1.3 mg/dLRemisol AxaxoLXO132 mL/min/1.73 a3Qnvbjb>=59mL/min/1.73 i5Tinklhq ChemFerritin [Mass/Vol]401 ng/ySEoes50 - 336 ng/mLRemisol ChemGlobulin (S) [Mass/Vol]3.9 g/dL Normal1.4 - 4.0 gm/dLRemisol ChemGlucose [Mass/Vol]100 mg/bJRhppua04 - 199 mg/dL Remisol ChemIron [Mass/Vol]268 ug/nLZueq58 - 153 mcg/dLRemisol ChemIron binding capacity [Mass/Vol]265 ug/lNTdfxdr182 - 400 mcg/dLRemisol ChemPotassium [Moles/Vol]4.0 mmol/LNormal3.5 - 5.3 mmol/LRemisol ChemProtein [Mass/Vol]7.4 g/dLNormal6.0 - 7.8 gm/dLRemisol ChemSodium [Moles/Vol]133 mmol/FDzu763 - 145 mmol/LRemisol ChemTransferrin [Mass/Vol]189 mg/jXJwf260 - 370 mg/dLRemisol Chem Urea nitrogen [Mass/Vol]8 mg/dLNormal5 - 21 mg/dLRemisol ChemUrea nitrogen/Creatinine [Mass ratio]16 mg/enCemfya72 - 20Remisol ChemCMPon 83-73-7566Hdvwmhf [Mass/Vol]3.5 g/dLNormal3.3-5.0[facility] Comment on above:Performed By: #### [id number] #### [facility] [address], [place] [address]Ottegwt/Globulin (S) [Mass conc ratio]0.9Low1.1-2.2[facility] CenterComment on above:Performed By: #### [id number] #### [facility] [address], [place] [address]HXC [Catalytic activity/Vol]219 Int._Unit/EZmsd29-42UufjcnAdena Health SystemComment on above:Performed By: #### [id number] #### [facility] [address], [place] [address]ZGG No additional P-5'-P [Catalytic activity/Vol]57 Int._Unit/L High6-46[facility] Health SystemComment on above:Performed By: #### [id number] #### [facility] [address], [place] [address]Ztfvq gap [Moles/Vol]10 mmol/LNormal6-16A[facility] Health SystemComment on above:Performed By: #### [id number] #### [facility] [address], [place] [address]IGF [Catalytic activity/Vol]96 Int._Unit/LHigh5-43[facility] Health SystemComment on above:Performed By: #### [id number] #### [facility] [address], [place] [address]Qnzicrwqe [Mass/Vol]5.3 mg/dLHigh0.0-1.1FMercy Health Perrysburg HospitalComment on above:Performed By: #### [id number] #### [facility] [address], [place] [address]Ktysqev [Mass/Vol]9.0 mg/dLNormal8.9-11.1FMercy Health Perrysburg HospitalComment on above:Performed By: #### [id number] #### [facility] [address], [place] [address]Isrkjnae [Moles/Vol]102 mmol/HHznenv079-993CoasfgAdena Health SystemComment on above:Performed By: #### [id number] #### [facility] [address], [place] [address]HJ0 [Moles/Vol]25 mmol/ONdasgg07-28WjvhruAdena Health System Comment on above:Performed By: #### [id number] #### [facility] [address], [place] [address]Upxqssbrjw [Mass/Vol]0.5 mg/dLNormal0.5-1.3FMercy Health Perrysburg HospitalComment on above:Performed By: #### [id number] #### [facility] [address], [place] [address]Umtrdnnv (S) [Mass/Vol]3.9 g/dLNormal1.4-4.0[facility] Health SystemComment on above:Performed By: #### [id number] #### [facility] [address], [place] [address]Vctlkqn [Mass/Vol]100 mg/lDItuwbb09-268RdrkzxAdena Health SystemComment on above:Performed By: #### [id number] #### [facility] [address], [place] [address]Gkoavndts [Moles/Vol]4.0 mmol/LNormal3.5-5.3[facility] CenterComment on above:Performed By: #### [id number] #### [facility] [address], [place] [address]Gsxrepx [Mass/Vol]7.4 g/dLNormal6.0-7.8A[facility] Health SystemComment on above:Performed By: #### [id number] #### [facility] [address] [place] [address]Xmfsgd [Moles/Vol]133 mmol/IWdo497-571LuceriAdena Health SystemComment on above:Performed By: #### [id number] #### [facility] [address] [place] [address]Blbm nitrogen [Mass/Vol]8 mg/dLNormal5-21A[facility] Health SystemComment on above:Performed By: #### [id number] #### [facility] [address] [place] [address] 802[address]Natw nitrogen/Creatinine [Mass ratio]16 No HluqbUvdiyg99-16 [facility] SystemComment on above:Performed By: #### [id number] #### [facility] [address], [place] [address]VLZBWNYJRMBBrccjaz By: Maria Isabel Chavira on 93-96-2150wECN Coag (PPP) [Time]42.5 sHigh25.1 - 36.5 second(s)[facility] Auto CoagComment on above:Interpretive Data: Parameter 15 days - 4 weeks 1 - [...] the same coagulation reagent and instrumentation as [facility]. Currently there are no coagulation studies available worldwide for children to 14 days, andno normal ranges. Heparin therapeutic range (represented by Anti-Factor Xa activity of 0.2 - 0.4 U/mL) corresponds to PTT of 56.6 - 109.0 sec.INR Coag (PPP) [Relative time]1.52 {INR}Invalid Interpretation CodeFAIRFAX COMMUNITY [facility] – [facility] Auto CoagComment on above:Interpretive Data: INR results are specifically intended to assess patients stabilized on long-term Anticoagulation therapy suggested INR s Less Intensive Anticoagulation 2.0 3.0 Conventional Range 3.0 4.5PT Coag (PPP) [Time]17.1 sHigh9.4 - 12.5 second(s)[facility] Auto CoagComment on above:Interpretive Data: 15 days - 4 weeks 1 - [...] the same coagulation reagent and instrumentation as [facility]. Currently there are no coagulation studies available worldwide for children to 14 days, andno normal ranges.Ferritinon 01-16-1132Pnkxcrvg [Mass/Vol]401 ng/iISgmj14-079Afkkji [facility] CenterComment on above:Performed By: #### [id number] #### [facility] [address] [place] [address] 844[address]YNOOOXTLRMCadyhvr By: SYSTEM SYSTEM on 89-50-8126Gugdobids/100 WBC (Bld)0.8 %Normal0.0 - 2.0 %Remisol HemeBasophils/Leukocytes Auto (Bld) [Pure # fraction]0.0 E9/LNormal0.0 - 0.2 E9/LRemisol HemeEosinophils (Bld) [#/Vol]0.2 E9/LNormal0.0 - 0.5 E9/LRemisol HemeEosinophils/100 WBC (Bld)3.4 %Normal0.0 - 8.0 %Remisol HemeErythrocyte distribution width (RBC) [Ratio]16.9 %High10.9 - 14.2 %Remisol HemeHematocrit (Bld) [Volume fraction]35.2 %Low37.7 - 49.0 % Remisol HemeHemoglobin (Bld) [Mass/Vol]12.1 g/dLLow13.5 - 17.5 gm/dLRemisol Heme Lymphocytes (Bld) [#/Vol]1.0 E9/LNormal1.0 - 4.0 E9/LRemisol HemeLymphocytes/100 WBC (Bld)16.1 %Gudfzc74.0 - 50.0 %Remisol HemeMCH (RBC) [Entitic mass]36.0 pg High27.0 - 34.0 pgRemisol HemeMCHC (RBC) [Mass/Vol]34.3 g/aHKnlnjv51.4 - 36.0 gm/dLRemisol HemeMCV (RBC) [Entitic vol]104.9 jBDyqu56.0 - 100.0 fLRemisol Heme Monocytes (Bld) [#/Vol]0.6 E9/LNormal0.2 - 1.0 E9/LRemisol HemeMonocytes/100 WBC (Bld)9.6 %Normal4.0 - 14.0 %Remisol HemeNeutrophils (Bld) [#/Vol]4.2 E9/LNormal 2.0 - 7.5 E9/LRemisol HemeNeutrophils/100 WBC (Bld)70.1 %Zpwiwb46.0 - 75.0 % Remisol HemePlatelet mean volume (Bld) [Entitic vol]9.0 fLNormal6.4 - 10.8 fL Remisol HemePlatelets (Bld) [#/Vol]81.0 E9/APrn556.0 - 500.0 E9/LRemisol Heme Comment on above:Result Comment: Peripheral smear review performed.RBC (Bld) [#/Vol]3.4 E12/LLow4.3 - 5.9 E12/LRemisol HemeWBC corrected for nucl RBC Auto (Bld) [#/Vol]6.0 E9/LNormal4.0 - 11.0 E9/LRemisol HemeIronon 51-93-4956Wkqg [Mass/Vol]268 microgram/hJLwdl91-328LerxchAdena Health SystemComment on above: Performed By: #### [id number] #### [facility] [address], [place] [address]KQ & PTTon 18-62-9015tPCJ Coag (PPP) [Time]42.5 second(s)High 25.1-36.5Fisher [facility] Medical CenterComment on above:Result Comment: Parameter 15 days - 4 weeks 1 - [...] the same coagulation reagent and instrumentation as [facility]. Currently there are no coagulation studies available worldwide for children to 14 days, andno normal ranges. Heparin therapeutic range (represented by Anti-Factor Xa activity of 0.2 - 0.4 U/mL) corresponds to PTT of 56.6 - 109.0 sec.Performed By: #### [id number] #### [facility] [address], [place] [address]XDF Coag (PPP) [Relative time]1.52 {INR}Invalid Interpretation CodeFisher Jarrod Medical CenterComment on above:Result Comment: INR results are specifically intended to assess patients stabilized on long-term Anticoagulation therapy suggested INR?s ?Less Intensive Anticoagulation? 2.0 ? 3.0 Conventional Range 3.0 ? 4.5Performed By: #### [id number] #### [facility] [address], [place] [address]ZW Coag (PPP) [Time]17.1 second(s)High9.4-12.5FMercy Health Perrysburg HospitalComment on above:Result Comment: 15 days - 4 weeks 1 - [...] the same coagulation reagent and instrumentation as [facility]. Currently there are no coagulation studies available worldwide for children to 14 days, andno normal ranges.Performed By: #### [id number] #### [facility] [address], [place] [address]LEFZ Calculatedon 41-47-8085Owap binding capacity [Mass/Vol]265 microgram/nPAcbmqd094-379PbcaccAdena Health SystemComment on above:Performed By: #### [id number] #### [facility] [address], [place] [address]Tataahtcxgl [Mass/Vol]189 mg/sKOmn871-761ZkgphsAdena Health SystemComment on above:Performed By: #### [id number] #### [facility] [address], [place] [address]fWBIhy 69-71-4956zSQF585 mL/min/1.73 g6Qpuegf>=59Adena Health SystemComment on above:Order Comment: Order added by Discern Expert. Performed By: #### [id number] #### [facility] [address] [place], [place] [address]Bugkynsohu Visit Summaryon 78-79-7316Rlscuftios Visit Summary Ambulatory Visit Summary WILL RALPH :1985 Visit Date:05/12/2024 Ambulatory Visit Instructions Your Diagnosis Liver cirrhosis, alcoholic Alcohol use disorder in remission Elevated liver enzymes Hemolytic anemia Your Care Team Attending Physician - Carrol MULTANI, Mario Xiong Primary Care Physician - John ALBERTS, Loreta Zuniga This Is Your Medications List Contact prescribing physician if questions or concerns Misc Prescription (BP cuff device and appropriate size please) Misc Prescription (Misc DME Prescription) Misc Prescription (Misc DME Prescription) Misc Prescription (Misc DME Prescription) bifidobacterium-lactobacillus (bifidobacterium-lactobacillus oral tablet) cholecalciferol (cholecalciferol 50,000 intl units [...] 5 mg Tab) potassium chloride (Potassium Chloride (Zya-Ojwx-Djq M20) 20 mEq oral tablet, extended release) promethazine (promethazine 25 mg Tab) spironolactone (spironolactone 50 mg Tab) Procedures Performed EGD - esophagogastroduodenoscopy (11/11/2023), Esophagogastroduodenoscopy (09/30/2023), I and D, Jaw. Discharge Vitals Heart Rate (Peripheral) 77 Blood Pressure 114/72 Height 170 cm Height 67 in Weight 73 kg Weight 160.6 lb BMI 25.26 What to do next Scheduled Follow-Up Appointments Thursday 10:30 AM EDT With: Where: [facility] 2023 1:15 PM EDT With: Carrol MULTANI, Mario Xiong Where: [facility] [address] [place] [address]- 2023 2:40 PM EST With: Kavon Lu DO Where: [facility] Thursday 3:00 PM EST With: Loreta Padilla Where: [facility] [address] [place] [address]- You Need to Complete the Following Alpha Fetoprotein Tumor Marker, Blood, Routine collect, 05/12/24, Order for future visit, Lab Collect, Alcoholic cirrhosis, Print Label By Order Location Kcmzl-4-Zcyaajaaefb, Blood, Routine collect, 05/12/24, Order for future visit, Lab Collect, Alcoholic cirrhosis Hemolytic anemia Elevated liver enzymes, Print Label By Order Location GEOVANNA w/Reflex if POS, Blood, Routine collect, 05/12/24, Order for future visit, Lab Collect, Alcoholic cirrhosis Hemolytic anemia Elevated liver enzymes, Print Label By Order Location Antimitochondrial Antibody, Quantitative, Blood, Routine collect, 05/12/24, Order for future visit,Lab Collect, Alcoholic cirrhosis Hemolytic anemia Elevated liver [...] collect, 05/12/24, Order for future visit, Lab Collect,Alcoholic cirrhosis Hemolytic anemia Elevated liver enzymes, Print Label By Order Location IgG, Quant., Blood, Routine collect, 05/12/24, Order for future visit, Lab Collect, Alcoholic cirrhosis Hemolytic anemia Elevated liver enzymes, Print Label By Order Location Iron Leve (more content not included)...[facility] Gastroenterology Office/Clinic Noteon 23-51-3302Aihpwofdaibfywbu Office/Clinic NoteGastroenterology Office/Clinic Note HPI Staff Patient is a(n) 38 year old male who presents today for a(n) 6 month follow-up. Was referred to [facility] 12/4023 for possible cholecystectomy d/t high risk. Denies blood thinners/GLP-1 agonists. Last visit 09/01/23 w/Dr. Evans: Assessment/Plan 1. Alcohol use disorder in remission (F10.91: Alcohol use, unspecified, in remission) Diagnosed few years ago, was actively drinking, he quit then He had a biopsy done at [facility] in January 2023, he had [...] due, last one was around January and [facility] report not available - Transplant [...] (Z68.23: Body mass index [BMI] 23.0-23.9, adult) US liver 09/03/23: IMPRESSION: CHOLELITHIASIS. ASCITES. Laboratory Results [...] fL High (05/06/24) Chloride: 101 mmol/L (05/06/24) Winn Absolute: 0.4 E9/L (05/06/24) CO2: 26 mmol/L (05/06/24) Winn Auto: 11 % (05/06/24) Creatinine: 0.5 mg/dL [...] 2.5 years Liver biopsy was done at [facility], gradient was 14 mmHg Liver [...] disorder in remission (F10. (more content not included)...Normal [facility] Health SystemComment on above:Result Comment: Electronically Signed By: Carrol MULTANI, Mario Xiong\.br\Date and Time Signed: 05/12/24 16:02 EDTHaptoglobinon 76-49-2660Quqgjxhhfeg [Mass/Vol]mg/xPDut11-222QraaslAdena Health SystemComment on above:Result Comment: Performed at: [facility] [address] [id number] PhD Poncho PraterPerformed By: #### [id number] #### [facility] [address] [place] [address]LFFWDVYNKWtnceyb By: SYSTEM SYSTEM on 24-31-4880Gmaipih [Mass/Vol]3.2 g/dLLow3.3 - 5.0 gm/dLRemisol ChemAlbumin/Globulin [Mass ratio]0.9 {ratio}Low1.1 - 2.2Remisol ChemALP [Catalytic activity/Vol]190 [iU]/dHigh21 - 98 Int._Unit/LRemisol ChemALT No additional P-5'-P [Catalytic activity/Vol]39 [iU]/dNormal6 - 46 Int._Unit/LRemisol ChemAnion gap [Moles/Vol]9 mmol/LNormal6 - 16 mEq/LRemisol ChemAST [Catalytic activity/Vol]73 [iU]/dHigh5 - 43 Int._Unit/L Remisol ChemBilirubin [Mass/Vol]5.4 mg/dLHigh0.0 - 1.1 mg/dLRemisol ChemCalcium [Mass/Vol]8.2 mg/dLLow8.9 - 11.1 mg/dLRemisol ChemChloride [Moles/Vol]101 mmol/L Kiayek049 - 111 mmol/LRemisol ChemCO2 [Moles/Vol]26 mmol/NBgjmup51 - 31 mmol/L Remisol ChemCreatinine [Mass/Vol]0.5 mg/dLNormal0.5 - 1.3 mg/dLRemisol ChemeGFR 133 mL/min/1.73 o8Tcmkwu>=59mL/min/1.73 w1Tfbjbwc ChemGlobulin (S) [Mass/Vol]3.7 g/dLNormal1.4 - 4.0 gm/dLRemisol ChemGlucose [Mass/Vol]165 mg/pUTwvyeh73 - 199 mg/dLRemisol XgxyXDL972 [iU]/dHigh93 - 218 Int._Unit/LRemisol ChemPotassium [Moles/Vol]4.0 mmol/LNormal3.5 - 5.3 mmol/LRemisol ChemProtein [Mass/Vol]6.9 g/dLNormal6.0 - 7.8 gm/dLRemisol ChemSodium [Moles/Vol]132 mmol/YBay823 - 145 mmol/LRemisol ChemUrea nitrogen [Mass/Vol]6 mg/dLNormal5 - 21 mg/dLRemisol Chem Urea nitrogen/Creatinine [Mass ratio]12 mg/hsIwgudo00 - 20Remisol ChemHEMATOLOGY Ordered By: SYSTEM SYSTEM on 13-77-6596Gzysshtbu/100 WBC (Bld)0.6 %Normal0.0 - 2.0 %Remisol HemeBasophils/Leukocytes Auto (Bld) [Pure # fraction]0.0 E9/LNormal 0.0 - 0.2 E9/LRemisol HemeEosinophils (Bld) [#/Vol]0.2 E9/LNormal0.0 - 0.5 E9/L Remisol HemeEosinophils/100 WBC (Bld)6.5 %Normal0.0 - 8.0 %Remisol Heme Erythrocyte distribution width (RBC) [Ratio]16.8 %High10.9 - 14.2 %Remisol Heme Hematocrit (Bld) [Volume fraction]35.8 %Low37.7 - 49.0 %Remisol HemeHemoglobin (Bld) [Mass/Vol]12.1 g/dLLow13.5 - 17.5 gm/dLRemisol HemeLymphocytes (Bld) [#/Vol]0.9 E9/LLow1.0 - 4.0 E9/LRemisol HemeLymphocytes/100 WBC (Bld)23.8 % Fgshyw13.0 - 50.0 %Remisol HemeMCH (RBC) [Entitic mass]36.2 zgIivg97.0 - 34.0 pg Remisol HemeMCHC (RBC) [Mass/Vol]34.0 g/xDBazxpa80.4 - 36.0 gm/dLRemisol HemeMCV (RBC) [Entitic vol]106.7 wSBqff41.0 - 100.0 fLRemisol HemeMonocytes (Bld) [#/Vol]0.4 E9/LNormal0.2 - 1.0 E9/LRemisol HemeMonocytes/100 WBC (Bld)11.0 % Normal4.0 - 14.0 %Remisol HemeNeutrophils (Bld) [#/Vol]2.2 E9/LNormal2.0 - 7.5 E9/LRemisol HemeNeutrophils/100 WBC (Bld)58.1 %Ewfpoa83.0 - 75.0 %Remisol Heme Platelet mean volume (Bld) [Entitic vol]9.1 fLNormal6.4 - 10.8 fLRemisol Heme Platelets (Bld) [#/Vol]98.0 E9/VOvi350.0 - 500.0 E9/LRemisol HemeComment on above:Result Comment: Peripheral smear review performed.RBC (Bld) [#/Vol]3.4 E12/LLow4.3 - 5.9 E12/LRemisol HemeReticulocytes/100 RBC (Bld)2.4 %High0.5 - 2.2 %Remisol HemeWBC corrected for nucl RBC Auto (Bld) [#/Vol]3.7 E9/LLow4.0 - 11.0 E9/LRemisol HemeRetic Counton 98-48-1852Cfcowfxvbhdxp/100 RBC (Bld)2.4 %High 0.5-2.2[facility] CenterComment on above:Performed By: #### [id number] #### [facility] [address] [place], [place] [address]Fhwvgzqhfb Visit Summaryon 51-57-3503Ndoaparpbc Visit Summary Ambulatory Visit Summary WILL RALPH :1985 Visit Date:04/29/2024 Ambulatory Visit Instructions Your Diagnosis Superficial thrombophlebitis of leg Cirrhosis HTN (hypertension) Esophageal varices Anemia Smokeless tobacco use Dependent edema Your Care Team Attending Physician - Loreta Padilla Primary Care Physician - Loreta Padilla This Is Your Medications List bifidobacterium-lactobacillus (bifidobacterium-lactobacillus oral tablet) furosemide (furosemide 20 mg Tab) [...] 5 mg Tab) potassium chloride (Potassium Chloride (Fjf-Tsgt-Bch M20) 20 mEq oral tablet, extended release) spironolactone (spironolactone 50 mg Tab) Procedures Performed EGD - esophagogastroduodenoscopy (11/11/2023), Esophagogastroduodenoscopy (09/30/2023), I and D, Jaw. Discharge Vitals [...] EDT With: Carrol MULTANI, Mario Xiong Where: [facility] [address] [address]- Medications What How Much When Why Instructions New bifidobacterium-lactobacillus (bifidobacterium-lactobacillus oral tablet) 1 Tablets By Mouth Every day Pickup at [id number] New promethazine (promethazine 25 mg Tab) 1 Tablets By Mouth Every 6 hours as needed for for nausea/vomiting Pickup at [id number] Changed furosemide (furosemide 20 mg Tab) 1 Tablets By Mouth Every day Cirrhosis Dependent edema Pickup at [id number] Unchanged cholecalciferol (cholecalciferol 50,000 intl units oral [...] Milliliter By Mouth 4 times a day Contactprescribing physician if questions or concerns Unchanged levofloxacin (levofloxacin 750 mg Tab) TAKE 1 TABLET BY MOUTH DAILY FOR 14 DAYS Contact prescribing physician if questions or concerns Unchanged Misc Prescription (BP cuff device and appropriate size please) See instructions HTN (hypertension) BP Device/ machine and cuff (size appropriate) Contact prescribing physician if questions or concerns Unchanged Misc Prescription (Misc DME Prescription) See instructions [employer] Dressing 4 x 4 dressing Contact [...] or concerns Unchanged potassium chloride (Potassium Chloride (Cwi-Jxio-Umv M20) 20 mEq oral tablet, extended release) 1 Tablets By Mouth 2 times a day Contact prescribing physician if questions or concerns Unchanged spironolactone (spironolac (more content not included)...[facility] Medicine Office/Clinic Noteon 27-05-3789Ooptqm Medicine Office/Clinic NoteFaboston hope medical center Medicine Office/Clinic Note Chief Complaint 3 month [...] Present Illness Patient was recently hospitalized at [facility] with right leg cellulitis and UTI, he was c/o urinary burning, discoloration and rapid decline. TODAY No symptoms of UTI noted. Patient remains a-febrile. RLE edema, pain no redness continues. No drainage noted. Patient states he was seen at [facility] and told he had a superficial [...] left - bruising noted after cath in [place], patient report he went to [place] to have Dr Bertrand said everything looked [...] 08:41 AM BP: 148/85 mmHg Patient Location: [facility] : 1985 Gender: Male Height: 67 in Age: 38 yrs Ethnicity: WHT Weight: 150 lb Reason For Study: Chest pain BSA: 1.8 m2 History: HTN,Murmur,Alcohol use Ordering Physician: John^Loreta^Nadia Referring Physician: Loreta Cummings Performed By: Chloe Angel, [facility] Interpretation Summary Stress echo test aborted after [...] RALPH Study Date: 12/11/19 (more content not included)...Normal [facility] SystemComment on above:Result Comment: Electronically Signed By: Loreta Padilla\.br\Date and Time Signed: 04/29/24 10:26 EDT POC BUN CREATon 80-74-0588Bompieztit [Mass/Vol]0.5 mg/dLLow0.7-1.2ProMedJ.W. Ruby Memorial HospitalComment on above:Result Comment: METHOD TRACEABLE TO IDMS STANDARDPerformed By: #### IBC #### [facility] ([id number]) [address], [place] [address]uAVT (CKD-EPI) NON-RACE DEPENDENT>90Normal>59ProOhiohealth O'Bleness HospitalComment on above:Result Comment: Reported eGFR is based on the CKD-EPI 2020 equation that does not use a race coefficient.Performed By: #### IBC #### [facility] ([id number]) [address], [place] [address]Pisp nitrogen [Mass/Vol]9 mg/dLNormal6-23ProOhiohealth O'Bleness HospitalComment on above:Performed By: #### IBC #### [facility] ([id number]) [address] [place], [place] [address]FonxvhbfaiGrant Regional Health Center 75-12-3038RegutqzdxbRoxborough Memorial Hospital Case Information Case Priority: None Programs: -- Referral Source: Security Intelligence Analyst Referral Reason: Care coordination Case Type: Transition [...] Heavy alcohol use Procedure/Surgical History EGD - esophagogastroduodenoscopy (11/11/2023), Esophagogastroduodenoscopy (09/30/2023), I and D, Jaw. Home Medications [...] gm= 30 mL, Oral, QID, 1 refills [facility] D[facility] Prescription, See Instructions [facility] Prescription, See Instructions [facility] Prescription, See Instructions Narcan 4 mg/0.1 mL nasal spray, 4 mg, Nasal, As Directed oxyCODONE 5 mg Tab, 0.5 tab, Oral, q6hr, PRN Potassium Chloride (Ynj-Ypkv-Hrw M20) 20 mEq oral tablet, extended release, 20 mEq= 1 tab(s), Oral,BID, 3 refills spironolactone 50 mg Tab, 50 [...] name, street address and date of verified Program Enrollment Provides verbal consent for enrollment Goals and Interventions Care Plan Progress Note Courtesy Call-Patient states he is doing okay. No symptoms of UTI noted. Patient remains a-febrile.RLE edema, pain and redness continues. No drainage noted. Patient states he was seen at [facility] and told he had a superficial [...] #1-see summary note. Created By: Nasrin Greene RNSelect Medical [facility] Clinic [facility], [place] on 81-14-3745LhbiftzoarRoxborough Memorial Hospital Case Information Case Priority: None Programs: -- Referral Source: Security Intelligence Analyst Referral Reason: Care coordination Case Type: Transition [...] Heavy alcohol use Procedure/Surgical History EGD - esophagogastroduodenoscopy (11/11/2023), Esophagogastroduodenoscopy (09/30/2023), I and D, Jaw. Home Medications [...] gm= 30 mL, Oral, QID, 1 refills [facility] D[facility] Prescription, See Instructions Mis DME Prescription, See Instructions [facility] Prescription, See Instructions Narcan 4 mg/0.1 mL nasal spray, 4 mg, Nasal, As Directed oxyCODONE 5 mg Tab, 0.5 tab, Oral, q6hr, PRN Potassium Chloride (Vyt-Keaq-Tua M20) 20 mEq oral tablet, extended release, 20 mEq= 1 tab(s), Oral,BID, 3 refills spironolactone 50 mg Tab, 50 [...] noted. Patient is drinking plenty of fluids. Nocomplaints with bowels. No changes in sleeping pattern [...] summary note. Created By: Jc GREER, Nasrin [facility] CenterHeart and Vascular Office/Clinic Noteon 79-15-8533Oenss and Vascular Office/Clinic Note Heart and Vascular [...] 08:41 AM BP: 148/85 mmHg Patient Location: [facility] : 1985 Gender: Male Height: 67 in Age: 38 yrs Ethnicity: T Weight: 150 lb Reason For Study: Chest pain BSA: 1.8 m2 History: HTN,Murmur,Alcohol use Ordering Physician: John^Loreta^L Referring Physician: Loreta Cummings Performed By: Chloe Angel RDCS Interpretation Summary Stress echo test aborted [...] 08:15 AM BP: 148/85 mmHg Patient Location: [facility] HR: 65 : 1985 Gender: Male Height: 67 in Age: 38 yrs Ethnicity: T Weight: 150 lb Reason For Study: Chest pain BSA: 1.8 m2 History: HTN,Alcohol use Ordering Physician: Lexi^Nadia Referring Physician: Loreta Cummings Performed By: Chloe Angel RDCS Interpretation Summary No comparison study is available. [...] stress test [facility] use disorder in [facility] (more content not included)...NormalFisher [facility] Medical CenterComment on above:Result Comment: Electronically Signed By: Shalonda MULTANI, Marc Vincent.br\Date and Time Signed: 03/17/24 14:46 EDTLab Miscellaneous-LCon 31-34-6338Vhm MiscellaneousCOMMENTInvalid Interpretation Code [facility] CenterComment on above:Result Comment: Test Ordered: [id number] Hered.Hemochromatosis, DNA Hereditary Hemochromatosis Comment TG Results: c.845G>A (p.Mxy856Rye) - Not Detected c.187C>G (p.Fkh95Rya) - Not Detected c.193A>T (p.Vlq14Ivl) - Detected, heterozygous Not associated with increased [...] for patients who are homozygous for c.845G>A (p.Jno785Fyv) and have yet to experience clinical symptoms. Comments: The most common HFE variants associated with hereditary hemochromatosis are c.845G>A (p.Ead850Cfa), c.187C>G (p.Yzz61Gwq), c.193A>T (p.Qww33Iic). While patients homozygous for c.845G>A (p.Hnr325Pao) are the most likely to present clinical symptoms, less than 10% develop clinically significant iron overload with tissue and organ damage. Genetic counseling is recommended to discuss the potential clinical implications of positive results, as well as recommendations for testing family members. Genetic Coordinators are available for health care providers to discuss results at [phone] ([id number]). Test Details: Three variants analyzed: c.845G>A (p.Dih369Zgv), commonly referred to as C282Y c.187C>G (p.Apl45Jyu), commonly referred to as H63D c.193A>T (p.Ygv90Rjj), commonly referred to as S65C Methods/Limitations: DNA [...] developed and its performance characteristics determined by [employer]. It has not been cleared or approved by the Food and Drug Administration. References: Jh BR, Xavier PC, Diane KV, Ilya LW, Allan ; [employer] for the [employer] Liver Diseases. Diagnosis and management of hemochromatosis: 2011 practice guideline by the [employer] [employer] for the [employer] Liver Diseases. Hepatology. 2010;54(1):328-43. doi: 10.1002/hep.01470. PMID: 21776965; PMCID: QJU1924983. Jasson G, Blake P, Scarlet PARKER, Kalyn H, Elliott O, Humberto S, Myles I, Nehemias M, Sanjay S. EMQN best practice guidelines for the molecular genetic diagnosis of hereditary hemochromatosis (HH). Eur J Hum Sisi. 2016 Dec;24(4):479-95. doi: 10.1038/ejhg.2015.128. Epub 2014Mar 14. PMID: 52480517; PMCID: ACD2834912. Reviewed by: Henny TG Technical Component performed at [facility] RTP Professional Component performed by: Selena Funes, Ph.D., [facility] Director, Molecular Genetics [id number] [facility] Performed at: [facility] [address] [place] [id number] PhD Poncho Lakhaniformed By: #### [id number] #### [facility] [address], [place] [address]Uajfvy Lvlon 71-25-7200Deaknq [Mass/Vol]80 microgram/dLInvalid Interpretation Czjs41-540Zvijhu [facility] CenterComment on above:Result Comment: This test was developed and its performance characteristics determined by [facility]. It has not been cleared or approved by the Food and Drug Administration. Detection Limit = 5 Performed at: [address] [id number] MD Héctor Bolañosformed By: #### [id number] #### [facility] [address], [place] [address]Jkndodegfylxf 18-69-1773Xllpgscyyoz [Mass/Vol]mg/zSFwh20-251 [facility] SystemComment on above:Result Comment: Performed at: [facility] [address] [place] [address] [id number] PhD Poncho Lakhaniformed By: #### [id number] #### [facility] [address] [place], [place] [address]LUBZW BANKOrdered By: Maria Isabel Chavira on 23-24-2700LXE IgG/C3d Tube Negative (03/02/24 1:51 PM)[facility] BB SubsectionBili Tot/Diron 12-30-8209Nbowyrfhs [Mass/Vol]5.0 mg/dLHigh0.0-1.1FMercy Health Perrysburg HospitalComment on above: Performed By: #### [id number] #### [facility] [address], [place] [address]Leqbgzghh.direct [Mass/Vol]1.2 mg/dLHigh0.0-0.4Fmorris [facility] CenterComment on above:Performed By: #### [id number] #### [facility] [address] [place] [address]Xnrhkkkhy.indirect [Mass or moles/Vol]3.8 mg/dLHigh0.1-0.9 [facility] SystemComment on above:Performed By: #### [id number] #### [facility] [address] [place] [address]DZX w/ Auto Diffon 23-14-0222Xtleuzroh/100 WBC (Bld)0.6 %Normal 0.0-2.0[facility] Health SystemComment on above:Performed By: #### [id number] #### [facility] [address] [place] [address]Koufcpnfd/Leukocytes Auto (Bld) [Pure # fraction]0.0 E9/LNormal 0.0-0.2FMercy Health Perrysburg HospitalComment on above:Performed By: #### [id number] #### [facility] [address] [place] [address]Mgyffsuehuf (Bld) [#/Vol]0.1 E9/LNormal0.0-0.5FMercy Health Perrysburg HospitalComment on above:Performed By: #### [id number] #### [facility] [address] [place] [address]Dutdlkuzjwf/100 WBC (Bld)3.0 %Normal0.0-8.0[facility] Health SystemComment on above:Performed By: #### [id number] #### [facility] [address] [place] [address]Qwfogjqkebn distribution width (RBC) [Ratio]15.6 %High10.9-14.2 [facility] SystemComment on above:Performed By: #### [id number] #### [facility] [address] [place] [address]Zerrorilpz (Bld) [Volume fraction]33.0 %Low37.7-49.0[facility] Health SystemComment on above:Performed By: #### [id number] #### [facility] [address] [place] [address] 668[address]Hfzcbduzbj (Bld) [Mass/Vol]11.7 g/dLLow13.5-17.5FMercy Health Perrysburg HospitalComment on above:Performed By: #### [id number] #### [facility] [address] [place] [address] 79129Yjspxvwhhoq (Bld) [#/Vol]1.1 E9/LNormal1.0-4.0Adena Health SystemComment on above:Performed By: #### [id number] #### [facility] [address] [place] [address] 96796Rufvnochyip/100 WBC (Bld)24.5 %Ydnpfi53.0-50.0A[facility]a Health SystemComment on above:Performed By: #### [id number] #### [facility] [address] [place] [address] 97782ZCF (RBC) [Entitic mass]37.3 mpBoau50.0-34.0A[facility] Health SystemComment on above:Performed By: #### [id number] #### [facility] [address] [place] [address] 94727FWXF (RBC) [Mass/Vol]35.5 g/iBCgazku46.4-36.0A[facility] Health SystemComment on above:Performed By: #### [id number] #### [facility] [address] [place] [address] 26645NKB (RBC) [Entitic vol]105.0 oLBrdx91.0-100.0A[facility] Health SystemComment on above:Performed By: #### [id number] #### [facility] [address] [place] [address] 35448Hgdbpyzuy (Bld) [#/Vol]0.4 E9/LNormal0.2-1.0[facility] Health SystemComment on above:Performed By: #### [id number] #### [facility] [address] [place] [address] 09926Fzobbyqhzrz (Bld) [#/Vol]2.7 E9/LNormal2.0-7.5FMercy Health Perrysburg HospitalComment on above:Performed By: #### [id number] #### [facility] [address], [place] [address]Zzfjjroefpo/100 WBC (Bld)62.6 %Qsezqg75.0-75.0A[facility] Health SystemComment on above:Performed By: #### [id number] #### [facility] [address], [place] [address]Ipzukoad41.0 E9/GCrf087.0-500.0[facility] Comment on above:Performed By: #### [id number] #### [facility] [address] [place] [address] 10719Gnwchpbn mean volume (Bld) [Entitic vol]9.2 fLNormal6.4-10.8 [facility] SystemComment on above:Performed By: #### [id number] #### [facility] [address] [place] [address] 20779HMO (Bld) [#/Vol]3.2 E12/LLow4.3-5.9[facility] Comment on above:Performed By: #### [id number] #### [facility] [address] [place] [address] 78991HUU corrected for nucl RBC Auto (Bld) [#/Vol]4.4 E9/LNormal 4.0-11.0[facility] Health SystemComment on above:Performed By: #### [id number] #### [facility] [address], [place] [address]GLNVCFKCFNrhewby By: SYSTEM SYSTEM on 56-41-7180Eyvnwkejk [Mass/Vol]5.0 mg/dLHigh0.0 - 1.1 mg/dLRemisol ChemBilirubin.direct [Mass/Vol]1.2 mg/dLHigh0.0 - 0.4 mg/dLRemisol ChemBilirubin.indirect [Mass or moles/Vol]3.8 mg/dLHigh0.1 - 0.9 mg/dLRemisol ChemFolate [Mass/Vol]20.5 ng/mLNormal>=6.7ng/mL Remisol ChemFree T4 [Mass/Vol]0.64 ng/dLNormal0.58 - 1.64 ng/dLRemisol ChemLDH 238 [iU]/dHigh93 - 218 Int._Unit/LRemisol ChemTSH Qn1.24 m[IU]/LNormal0.34 - 5.60 mcIU/mLRemisol ChemConsenton 70-93-9955Yqbtwfr [id number]#1.00TIFFCleveland Clinic Lutheran HospitalConsent for Treatmenton 45-23-4588Mvtswra for Treatment [id number]#1.00TIFSt. John of God HospitalDAT IgG/C3d.on 59-57-8030YYA IgG/C3d TubeNegativeCleveland Clinic Lutheran HospitalComment on above:Performed By: #### [id number] #### [facility] [address], [place] [address]Xmhsnuau 86-20-0779Xzgfds [Mass/Vol]20.5 ng/mLNormal>=6.7FMercy Health Perrysburg HospitalComment on above:Performed By: #### [id number] #### [facility] [address], [place] [address]Idqg T4on 70-45-2364Lhvx T4 [Mass/Vol]0.64 ng/dLNormal0.58-1.64 [facility] SystemComment on above:Performed By: #### [id number] #### [facility] [address], [place] [address]VFUFQAHCBKRuzpsva By: SYSTEM SYSTEM on 96-17-6570Zesajymrd/100 WBC (Bld)0.6 %Normal0.0 - 2.0 %Remisol HemeBasophils/Leukocytes Auto (Bld) [Pure # fraction]0.0 E9/LNormal0.0 - 0.2 E9/LRemisol HemeEosinophils (Bld) [#/Vol]0.1 E9/LNormal0.0 - 0.5 E9/LRemisol HemeEosinophils/100 WBC (Bld)3.0 %Normal0.0 - 8.0 %Remisol HemeErythrocyte distribution width (RBC) [Ratio]15.6 %High10.9 - 14.2 %Remisol HemeHematocrit (Bld) [Volume fraction]33.0 %Low37.7 - 49.0 % Remisol HemeHemoglobin (Bld) [Mass/Vol]11.7 g/dLLow13.5 - 17.5 gm/dLRemisol Heme Lymphocytes (Bld) [#/Vol]1.1 E9/LNormal1.0 - 4.0 E9/LRemisol HemeLymphocytes/100 WBC (Bld)24.5 %Qpmtvl65.0 - 50.0 %Remisol HemeMCH (RBC) [Entitic mass]37.3 pg High27.0 - 34.0 pgRemisol HemeMCHC (RBC) [Mass/Vol]35.5 g/uFZuukko66.4 - 36.0 gm/dLRemisol HemeMCV (RBC) [Entitic vol]105.0 mSCfxk56.0 - 100.0 fLRemisol Heme Monocytes (Bld) [#/Vol]0.4 E9/LNormal0.2 - 1.0 E9/LRemisol HemeMonocytes/100 WBC (Bld)9.3 %Normal4.0 - 14.0 %Remisol HemeNeutrophils (Bld) [#/Vol]2.7 E9/LNormal 2.0 - 7.5 E9/LRemisol HemeNeutrophils/100 WBC (Bld)62.6 %Tioxcm97.0 - 75.0 % Remisol XjdrRccuonel99.0 E9/GBlg630.0 - 500.0 E9/LRemisol HemePlatelet mean volume (Bld) [Entitic vol]9.2 fLNormal6.4 - 10.8 fLRemisol HemeRBC (Bld) [#/Vol] 3.2 E12/LLow4.3 - 5.9 E12/LRemisol HemeReticulocytes/100 RBC (Bld)2.7 %High0.5 - 2.2 %Remisol HemeWBC corrected for nucl RBC Auto (Bld) [#/Vol]4.4 E9/LNormal4.0 - 11.0 E9/LRemisol HemeLDHon 60-13-5596VVY865 Int._Unit/ELnsx64-357AghzetAdena Health SystemComment on above:Performed By: #### [id number] #### [facility] [address], [place] [address]Fhn Miscellaneous-LCon 32-49-1125Jvkg Zpjx792990Vyvbiok Interpretation [facility]iffin HospitalComment on above:Performed By: #### [id number] #### [facility] [address], [place] [address]Xkiy NameHFE geneInvalid Interpretation CodeAdena Health SystemComment on above:Performed By: #### [id number] #### [facility] [address], [place] [address]Thrjptkuf Laboratory TestingOrdered By: Karina Vela on 99-32-5903Rfvb [id number] 1Invalid Interpretation CodeFAIRFAX COMMUNITY [facility] – [place] SendOutsSSTest Name HFE geneInvalid Interpretation CodeFAIRFAX COMMUNITY HOSPITAL – [place] SendOutsSSRetic Counton 03-02-2024 Reticulocytes/100 RBC (Bld)2.7 %High0.5-2.2[facility] Medical CenterComment on above:Performed By: #### [id number] #### [facility] [address], [place] [address]KGWii 19-82-9038DZU Qn1.24 m[IU]/LNormal0.34-5.60[facility] Health SystemComment on above:Performed By: #### [id number] #### [facility] [address], [place] [address]Xnjnym Summary.on 12-06-6771Izwuar Summary. BVIPPfjn94RKg6wIy+PGhlYWQ+DA3GAWCdP74hsQIllP4oV9YAIPmUUizsOEQLICaMSlOjnyTlVR8fnU NjZXJu [file] e2I7ARRgxGysg (more content not included)...[facility] Coding Summary.on 59-79-1619Ojcjnx Summary. UOACVocu57HJm8bRp+PGhlYWQ+IF8DLUSbP40crMGpuC2gM2JCALzTAxaxAZOJKDdVXjLzgqEdBB6ldS NjZXJu [file] z1O4ZFXheVbxp (more content not included)...[facility] Consent for Treatmenton 91-49-8247Qtgxdsf for Treatment [id number]#1.00TIFSt. John of God HospitalLaboratory Outside Office Copyon 04-07-8762Mnhsfkbsgi Outside Office Copy [id number]#1.00[facility] Hospital - CincinnatiOutside Records Officeon 71-18-7492Fcxqmky Records Office [id number]#1.00[facility] Hospital - CincinnatiCBC w/ Auto Diffon 62-73-9086Zuxssszhz/100 WBC (Bld)0.6 %Normal0.0-2.0 [facility] SystemComment on above:Performed By: #### [id number] #### [facility] [address], [place] [address]Luvtoszsw/Leukocytes Auto (Bld) [Pure # fraction]0.0 E9/LNormal 0.0-0.2FMercy Health Perrysburg HospitalComment on above:Performed By: #### [id number] #### [facility] [address], [place] [address]Gqpwgmzkjpw (Bld) [#/Vol]0.1 E9/LNormal0.0-0.5FMercy Health Perrysburg HospitalComment on above:Performed By: #### [id number] #### [facility] [address] [place] [address] 63829Eonpstxicyv/100 WBC (Bld)3.8 %Normal0.0-8.0[facility] Health SystemComment on above:Performed By: #### [id number] #### [facility] [address] [place] [address] 79178Biciuaaszhq distribution width (RBC) [Ratio]15.5 %High10.9-14.2 [facility] SystemComment on above:Performed By: #### [id number] #### [facility] [address] [place] [address] 62477Jiwbjuubtr (Bld) [Volume fraction]33.1 %Low37.7-49.0[facility] Health SystemComment on above:Performed By: #### [id number] #### [facility] [address] [place] [address] 44020Pjmwgugcyg (Bld) [Mass/Vol]11.5 g/dLLow13.5-17.5FMercy Health Perrysburg HospitalComment on above:Performed By: #### [id number] #### [facility] [address] [place] [address] 04208Qjkulorbdmn (Bld) [#/Vol]0.8 E9/LLow1.0-4.0[facility] Health SystemComment on above:Performed By: #### [id number] #### [facility] [address] [place] [address] 70334Mnxnswcrmbt/100 WBC (Bld)21.1 %Vkrwsd90.0-50.0[facility] Health SystemComment on above:Performed By: #### [id number] #### [facility] [address] [place] [address] 34590TZA (RBC) [Entitic mass]37.1 kqWzec63.0-34.0[facility] Health SystemComment on above:Performed By: #### [id number] #### [facility] [address] [place] [address] [place] [address]OTKG (RBC) [Mass/Vol]34.7 g/aAMtfqra82.4-36.0[facility] Health SystemComment on above:Performed By: #### [id number] #### [facility] [address] [place] [address] 00730ZTE (RBC) [Entitic vol]106.8 vMHgyg77.0-100.0[facility] Health SystemComment on above:Performed By: #### [id number] #### [facility] [address] [place] [address] 97086Ckunbyyxe (Bld) [#/Vol]0.4 E9/LNormal0.2-1.0[facility] Health SystemComment on above:Performed By: #### [id number] #### [facility] [address] [place] [address] 13877Yltjdkxtakm (Bld) [#/Vol]2.4 E9/LNormal2.0-7.5FMercy Health Perrysburg HospitalComment on above:Performed By: #### [id number] #### [facility] [address] [place] [address] 89991Oaiacypogfm/100 WBC (Bld)65.0 %Bteple90.0-75.0[facility] Health SystemComment on above:Performed By: #### [id number] #### [facility] [address] [place] [address] 32478Mgnmgwdh49.0 E9/QNpa589.0-500.0[facility] Comment on above:Result Comment: Peripheral smear review performed.Performed By: #### [id number] #### [facility] [address] [place] [address] 96723Znozwees mean volume (Bld) [Entitic vol]8.8 fLNormal6.4-10.8 [facility] SystemComment on above:Performed By: #### [id number] #### [facility] [address] [place] [address] 94595IKG (Bld) [#/Vol]3.1 E12/LLow4.3-5.9[facility] Comment on above:Performed By: #### [id number] #### [facility] [address], [place] [address]GJN corrected for nucl RBC Auto (Bld) [#/Vol]3.8 E9/LLow 4.0-11.0[facility] Health SystemComment on above:Performed By: #### [id number] #### [facility] [address], [place] [address]MCQUSMSPNCdfadqq By: SYSTEM SYSTEM on 03-44-7430Sepfrgj [Mass/Vol]3.1 g/dLLow3.3 - 5.0 gm/dLRemisol ChemAlbumin/Globulin [Mass ratio]0.9 {ratio}Low1.1 - 2.2Remisol ChemALP [Catalytic activity/Vol]190 [iU]/dHigh21 - 98 Int._Unit/LRemisol ChemALT No additional P-5'-P [Catalytic activity/Vol]77 [iU]/dHigh6 - 46 Int._Unit/LRemisol ChemAnion gap [Moles/Vol]10 mmol/LNormal6 - 16 mEq/LRemisol ChemAST [Catalytic activity/Vol]120 [iU]/dHigh5 - 43 Int._Unit/L Remisol ChemBilirubin [Mass/Vol]7.8 mg/dLHigh0.0 - 1.1 mg/dLRemisol ChemCalcium [Mass/Vol]8.4 mg/dLLow8.9 - 11.1 mg/dLRemisol ChemChloride [Moles/Vol]103 mmol/L Ytsktf099 - 111 mmol/LRemisol ChemCO2 [Moles/Vol]27 mmol/XSwsiet39 - 31 mmol/L Remisol ChemCobalamin (Vitamin B12) [Mass/Vol]pg/vDQmuvhh09 - 1500 pg/mLRemisol ChemCreatinine [Mass/Vol]0.6 mg/dLNormal0.5 - 1.3 mg/dLRemisol BenziEXO545 mL/min/1.73 e4Yvxknd>=59mL/min/1.73 l7Cwrnpcw ChemFerritin [Mass/Vol]527 ng/mL High24 - 336 ng/mLRemisol ChemGlobulin (S) [Mass/Vol]3.4 g/dLNormal1.4 - 4.0 gm/dLRemisol ChemGlucose [Mass/Vol]192 mg/rDNlfgpc78 - 199 mg/dLRemisol ChemIron [Mass/Vol]227 ug/qATqof90 - 153 mcg/dLRemisol ChemIron binding capacity [Mass/Vol]230 ug/sWIlr889 - 400 mcg/dLRemisol ChemIron saturation [Mass fraction]99 %High20 - 50 %Remisol ChemPotassium [Moles/Vol]3.6 mmol/LNormal3.5 - 5.3 mmol/LRemisol ChemProtein [Mass/Vol]6.5 g/dLNormal6.0 - 7.8 gm/dLRemisol ChemSodium [Moles/Vol]136 mmol/IBahrpu597 - 145 mmol/LRemisol ChemTransferrin [Mass/Vol]164 mg/xCApe598 - 370 mg/dLRemisol ChemUrea nitrogen [Mass/Vol]6 mg/dL Normal5 - 21 mg/dLRemisol ChemUrea nitrogen/Creatinine [Mass ratio]10 mg/mg Lbmoai66 - 20Remisol ChemCMPon 08-33-8111Gaxrgdq [Mass/Vol]3.1 g/dLLow3.3-5.0 [facility] SystemComment on above:Performed By: #### [id number] #### [facility] [address], [place] [address]Ggtzrsh/Globulin (S) [Mass conc ratio]0.9Low1.1-2.2[facility] Medical CenterComment on above:Performed By: #### [id number] #### [facility] [address], [place] [address]ZEP [Catalytic activity/Vol]190 Int._Unit/FDwfa42-89CywnawAdena Health SystemComment on above:Performed By: #### [id number] #### [facility] [address], [place] [address]EGM No additional P-5'-P [Catalytic activity/Vol]77 Int._Unit/L High6-46[facility] Health SystemComment on above:Performed By: #### [id number] #### [facility] [address], [place] [address]Jdpmb gap [Moles/Vol]10 mmol/LNormal6-16[facility] Health SystemComment on above:Performed By: #### [id number] #### [facility] [address], [place] [address]LAI [Catalytic activity/Vol]120 Int._Unit/LHigh5-43[facility] Health SystemComment on above:Performed By: #### [id number] #### [facility] [address], [place] [address]Nhedvjhpp [Mass/Vol]7.8 mg/dLHigh0.0-1.1FMercy Health Perrysburg HospitalComment on above:Performed By: #### [id number] #### [facility] [address], [place] [address]Fauccvk [Mass/Vol]8.4 mg/dLLow8.9-11.1FMercy Health Perrysburg HospitalComment on above:Performed By: #### [id number] #### [facility] [address], [place] [address]Zzmrrrjw [Moles/Vol]103 mmol/LYglwrz040-353UivfocAdena Health SystemComment on above:Performed By: #### [id number] #### [facility] [address], [place] [address]YB7 [Moles/Vol]27 mmol/GEdyzha50-72TxgkzwAdena Health System Comment on above:Performed By: #### [id number] #### [facility] [address], [place] [address]Fryjtvluyw [Mass/Vol]0.6 mg/dLNormal0.5-1.3FMercy Health Perrysburg HospitalComment on above:Performed By: #### [id number] #### [facility] [address], [place] [address]Hmsmgvai (S) [Mass/Vol]3.4 g/dLNormal1.4-4.0[facility] Health SystemComment on above:Performed By: #### [id number] #### [facility] [address], [place] [address]Izzudpp [Mass/Vol]192 mg/lBGifvky45-853BsewwyAdena Health SystemComment on above:Performed By: #### [id number] #### [facility] [address], [place] [address]Ajdzrktfw [Moles/Vol]3.6 mmol/LNormal3.5-5.3FMercy Health Perrysburg HospitalComment on above:Performed By: #### [id number] #### [facility] [address], [place] [address]Lcintrx [Mass/Vol]6.5 g/dLNormal6.0-7.8[facility] Health SystemComment on above:Performed By: #### [id number] #### [facility] [address] [place] [address]40[address]Jxfxci [Moles/Vol]136 mmol/ITsplyc187-653GmddwhAdena Health SystemComment on above:Performed By: #### [id number] #### [facility] [address] [place] [address] 79[address]Chkc nitrogen [Mass/Vol]6 mg/dLNormal5-21[facility] Health SystemComment on above:Performed By: #### [id number] #### [facility] [address], [place] [address]Bsxd nitrogen/Creatinine [Mass ratio]10 No VxdreGsbnuv53-84 [facility] SystemComment on above:Performed By: #### [id number] #### [facility] [address], [place] [address]Rvttrik for Treatmenton 49-48-1098Jkwmfmv for Treatment [id number]#1.00TIFFNormalAdena Health SystemFerritinon 54-75-0172Fnklpfci [Mass/Vol]527 ng/yEHjop04-756Wtefts [facility] CenterComment on above:Performed By: #### [id number] #### [facility] [address] [place], [place] [address]VXWOXHYFFTKmpmqqb By: SYSTEM SYSTEM on 56-34-7541Jttylyqof/100 WBC (Bld)0.6 %Normal0.0 - 2.0 %Remisol HemeBasophils/Leukocytes Auto (Bld) [Pure # fraction]0.0 E9/LNormal0.0 - 0.2 E9/LRemisol HemeEosinophils (Bld) [#/Vol]0.1 E9/LNormal0.0 - 0.5 E9/LRemisol HemeEosinophils/100 WBC (Bld)3.8 %Normal0.0 - 8.0 %Remisol HemeErythrocyte distribution width (RBC) [Ratio]15.5 %High10.9 - 14.2 %Remisol HemeHematocrit (Bld) [Volume fraction]33.1 %Low37.7 - 49.0 % Remisol HemeHemoglobin (Bld) [Mass/Vol]11.5 g/dLLow13.5 - 17.5 gm/dLRemisol Heme Lymphocytes (Bld) [#/Vol]0.8 E9/LLow1.0 - 4.0 E9/LRemisol HemeLymphocytes/100 WBC (Bld)21.1 %Ignjzf85.0 - 50.0 %Remisol HemeMCH (RBC) [Entitic mass]37.1 pg High27.0 - 34.0 pgRemisol HemeMCHC (RBC) [Mass/Vol]34.7 g/fOVnzbih05.4 - 36.0 gm/dLRemisol HemeMCV (RBC) [Entitic vol]106.8 zHNtbs19.0 - 100.0 fLRemisol Heme Monocytes (Bld) [#/Vol]0.4 E9/LNormal0.2 - 1.0 E9/LRemisol HemeMonocytes/100 WBC (Bld)9.5 %Normal4.0 - 14.0 %Remisol HemeNeutrophils (Bld) [#/Vol]2.4 E9/LNormal 2.0 - 7.5 E9/LRemisol HemeNeutrophils/100 WBC (Bld)65.0 %Rcczqf56.0 - 75.0 % Remisol MzpnLjxrsgay31.0 E9/PZqz009.0 - 500.0 E9/LRemisol HemeComment on above: Result Comment: Peripheral smear review performed.Platelet mean volume (Bld) [Entitic vol]8.8 fLNormal6.4 - 10.8 fLRemisol HemeRBC (Bld) [#/Vol]3.1 E12/LLow 4.3 - 5.9 E12/LRemisol HemeWBC corrected for nucl RBC Auto (Bld) [#/Vol]3.8 E9/L Low4.0 - 11.0 E9/LRemisol HemeIronon 77-58-8013Chhh [Mass/Vol]227 microgram/dL Gtga31-435VkmkvfAdena Health SystemComment on above:Performed By: #### [id number] #### [facility] [address], [place] [address]Kyjc Saturationon 61-89-3529Hbxp binding capacity [Mass/Vol]230 microgram/qDTgt305-362NgnhzoAdena Health SystemComment on above:Performed By: #### [id number] #### [facility] [address], [place] [address]Jpuz saturation [Mass fraction]99 %Pdll80-82YjeqauAdena Health SystemComment on above:Performed By: #### [id number] #### [facility] [address], [place] [address]Cevoexrnxaggb 89-30-7320Cndffhswmya [Mass/Vol]164 mg/dLLow 200-370A[facility] Health SystemComment on above:Performed By: #### [id number] #### [facility] [address], [place] [address]Ddn B12on 03-03-2273Imedyalok (Vitamin B12) [Mass/Vol]pg/mL Itmmat49-9221VbpvwdAdena Health SystemComment on above:Performed By: #### [id number] #### [facility] [address], [place] [address]bXNVvw 11-62-3027uDDO196 mL/min/1.73 q2Yzvpjb>=59Fisher [facility] Medical CenterComment on above:Order Comment: Order added by Discern Expert. Performed By: #### [id number] #### [facility] [address] [address]Vdhskd Medicine Office/Clinic Noteon 99-31-9090Dcjiet Medicine Office/Clinic NoteChief Complaint 3 month follow up-HTN and Medication [...] Cholelithiasis. The patient sought consultation at the [facility] in [place], but he was informed that surgical consultation must be at the main campus. He subsequently scheduled an appointment and was informedthat they can do the consultation and they will contact [facility]. He was called again and was informed that he is required to consult with a crm technical lead. He currently does not experience any pain [...] increase his iron intake and incorporated more iron- rich foods into his diet but feels as [...] by Dr. Evans and was advised to followup in 6 months. He reports occasional vomiting with mycophenolate, and reports improvement after discontinuing it. He queries about the indication of thiamine. Leg pain. He reports intermittent leg pain, which he manages with oxycodone. He typically takes 0.25 tablet of the 5 mg tablet as needed and has approximately 2 tablets remaining. He abstained from taking thismedication for a period of 2 weeks. He took a 0.25 tablet on 01/24/2024 before working on his roof,and another 0.25 tablet on 01/25/2024. Additional information. [...] open wounds present. Neurological (more content not included)...[facility] Comment on above:Result Comment: Electronically Signed By: Loreta Padilla\.br\Date and Time Signed: 01/29/24 04:45 EDT\.br\Electronically Co- Signed By: Monie Parks\.br\Date and Time Co-Signed: 01/27/24 14:24 EDT Ambulatory Visit Summaryon 84-12-8397Ucyahpdklg Visit Summary WILL RALPH [place] :1985 Visit Date:01/27/2024 Ambulatory Visit Instructions Your [...] 4 mg Tab) potassium chloride (Potassium Chloride (Jcm-Npzc-Ajb M20) 20 mEq oral tablet, extended release) spironolactone (spironolactone 50 mg Tab) sulfamethoxazole-trimethoprim (Bactrim) [Image Removed: STOP]Stop taking these medications folic acid (folic acid 1 mg Tab) Procedures Performed EGD - esophagogastroduodenoscopy (11/11/2023), Esophagogastroduodenoscopy (09/30/2023), I and D, Jaw. Discharge Vitals Temperature (Temporal Artery) 36.5 ?C Heart Rate (Peripheral) 72 Respiratory Rate 14 Blood Pressure 130/62 Height 170 cm Height 67 in Weight 74.6 kg Weight 164.12 lb BMI 25.81 What to do next Scheduled Follow-Up Appointments Thursday 8:15 AM EDT With: Barby MULTANI, [place] Where: [facility] 2023 3:15 PM EDT With: Mario Evans MD Where: [facility]ive [facility] CincinnatiPatient Educationon 18-01-0444Prrusih EducationCardiovascular Peripheral Vascular Disease Peripheral vascular disease (PVD) [...] these instructions at home: Medicines ? Take neeg-yly-wlvuxgn and prescription medicines only as told by your health care provider. ? If you are taking blood thinners: ? Talk with your health care provider before you take any medicines that contain aspirin or NSAIDs,such as ibuprofen. These medicines (more content not included)...[facility] HospitalTelephone Encounteron 01-09-2024 Document Review Specialist Authentication Interface Message TextPharmacy is attempting to schedule an appointment for this patient. Per protocol, we will make 1 attempt to contact patient before routing to nurse for follow up. Medication request adjusted to only a 3 month supply to allow time for appointment to be scheduled. Thank you.NormalThe [facility] SystemPhysician Referralon 90-50-3970Kxyuuahjc Referral [id number]#1.00TIFFNormalAdena Health SystemUS Abdomen, Limitedon 46-61-3011FG Abdomen, LimitedExam Date/Time: 12/31/2023 08:34 EDT Reason for Exam: [...] Camacho Almeida MD Transcribed by: JUNIOR Technologist: [facility] CenterConsent for Treatmenton 55-15-8595Jltywdc for Treatment [id number]#1.00TIFSt. John of God HospitalPhysician Referralon 65-12-7253Qsicftudu Referral [id number]#1.00TIFSt. John of God HospitalCNOVon 06-19-5829FJQNOpcbiy Visit (RULA) WILL RALPH ([id number]) 1985 M Date Time Provider Department 12/30/23 [...] with abdominal pain and abnormal labs from [facility]. These values are visible in Care [...] the option of seeing HPB surgery at [facility] as this would be the [...] gallstones. Blood work was also performed through [facility] along with the CT scan. His liver function tests were elevated along with his INR and bilirubin aware of his baseline laboratory values. He does see a crm technical lead and is being treated for liver failure. [...] naloxone 4 mg/actuation nasal spray (NARCAN) 1 [place] by nasal (alternating) route. oxyCODONE ir (OXYIR) [...] Visit Diagnosis:Gallstones [K80.20] Order(s):[facility] [[id number]] Order #: [id number]: 1 Prescriptions as of 12/30/2023 - CHOLECALCIFEROL, [...] as needed. - myc (more content not included)...[facility]/Clinic Noteon [id number] Medicine Office/Clinic NoteChief Complaint TCM follow up. Dx Intractable pain and cirrhosis HPI Staff Reason for Visit: TCM Follow up Acute: Patient states he is having stomach issues (for the past month) and doesn't know if it is a parasite. Patient states he is having chronic headaches, fatigue, and uncontrollable gas. [place] [facility] [place] date: 12/11/2023 Discharge date: 12/13/2023 Symptoms the patient presented with: Intractable Pain and Cirrhosis History of Present Illness I have reviewed and discussed the HPI (staff) with the patient today. Information was verified and is correct. Additional information provided if needed. Will Ralph is a 38-year-old male who is here for TCM follow-up. He was recently hospitalized afterhaving an adverse reaction and severe pain to stress dobutamine test. The patient has been having some abdominal issues for the past month. He is uncertain if there is a parasite or something. He reports uncontrollable flatulence, headache, and fatigue. Chart review: He had laboratory studies on 12/21/2023. He has elevated alkaline phosphatase, ALT and AST which isdue to his chronic liver disease. He has [...] His appointment with Dr. 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 Cholelithiasis and epigastric pain. [...] prior to going to work or he i s unable to do anything. He reports he [...] feels across his abdomen. He saw his cow tester, Dr. Evans who did an endoscopy in [...] for 3 days. He reports sleeping at nig (more content not included)...Normal [facility] SystemComment on above:Result Comment: Electronically Signed By: Loreta Padilla\.br\Date and Time Signed: 12/24/23 19:04 EDT\.br\Electronically Co-Signed By: Dagmar King\.br\Date and Time Co-Signed: 12/23/23 17:02 EDTPhysician Referralon 61-71-8531Fbaqimeax Referral [id number]#1.00TIFFNormalFisher [facility] CenterPatient Educationon 43-86-3073Rohxbek EducationGastroenterology Nausea, Adult Nausea is the feeling of [...] added (diluted fruit juice). ? Eat bland, pslf-pz-lhdilb foods in small amounts as you are able. These foods include bananas, applesauce, rice, lean meats, toast, and crackers. ? Avoid drinking fluids that contain a lot of sugar or caffeine, such as energy drinks, sports drinks, and soda. ? Avoid alcohol. ? Avoid spicy or fatty foods. General instructions ? Take ndin-cdx-kiaqngz and prescription medicines only as told by [...] and water are not available, use hand doll eye setter. ? Make sure that everyone in your [...] recommendations for eating and drinking and take wvtu-hdf-cimlpot and prescription medicines only as told by [...] provider. Document Revised: 02/28/2022 Document Reviewed: 02/28/2022 [employer] Patient Education ? 2022 [employer]. Esophageal Variceal Ligation Esophageal variceal ligation (EVL) [...] varices to cut off their blood (more contentnot included)...[facility].Interpretation:on 48-12-2392EUO Ab IA QlCommentInvalid Interpretation [facility] HospitalComment on above:Result Comment: Not infected with HCV unless early or acute infection is suspected (which may be delayed in an immunocompromised individual), or other evidence exists to indicate HCV infection. Performed at: [address] [id number] PhD Poncho PraterPerformed By: #### 8703849, [id number], 04513517, 6325545, 8240510, 146272352, 8782234, 6690825, 58287007, 4650374, 5495430, 7836922, 7853719917, 362733431, 5106161872, 3356342 ####[address] [address]Faygp Hepatitis A B C Panelon 82-91-6774AUD IgM IA QlNegativeInvalid Interpretation CodeNegativeAdena Health SystemComment on above:Performed By: #### 4276008, 779158134, 46793944, 2101498, 2628150, 356622974, 7279627, 1160907, 56493951, 4855907, 3578706, 4582913, 3368345849, 700993272, 1911614838, 6991818 ####[address] [address]RFI core IgM IA QlNegative Invalid Interpretation CodeNegativeAdena Health SystemComment on above: Performed By: #### 3255362, 446357148, 60115137, 8576111, 7667958, 915935232, 6615906, 5787938, 65043274, 1845784, 9293365, 2107400, 2772416203, 900268215, 0070146577, 3522561 ####[address] [address]GRG surface Ag IA QlNegativeInvalid Interpretation Code NegativeAdena Health SystemComment on above:Performed By: #### 1982239, 304401289, 28904287, 0532515, 1525052, 265258539, 1568212, 3135598, 68953373, 7894378, 3497777, 1411999, 4040778120, 129211517, 5816924383, 2749121 ####[address] [address]RRR IgG IA Ql Non-ReactiveInvalid Interpretation CodeNon ReactiveAdena Health System Comment on above:Result Comment: Performed at: [facility] [address] [place], [place] [id number] PhD Poncho Lakhaniformed By: #### 9984372, 590445635, 23456185, 6221340, 2732850, 313621135, 0084307, 4859194, 26980193, 1721266, 6851951, 0452273, 2180788448, 694939416, 8116302487, 2712836 ####[facility] [address] [place], [place] [address]CKZ Screen 4th Generation wRfx on 54-73-7620YAL 1+2 Ab+HIV1 p24 Ag IA QlNon-ReactiveInvalid Interpretation Code Non ReactiveAdena Health SystemComment on above:Result Comment: HIV Negative HIV-1/HIV-2 antibodies and HIV-1 p24 antigen were NOT detected. There is no laboratory evidence of HIV infection. Performed at: [facility] [address] [place], [place] [id number] PhD Poncho Lakhaniformed By: #### 6045020, 472898246, 02179365, 1187980, 0502912, 968733470, 9192265, 0107433, 65198106, 2610947, 2690501, 3976057, 2367768726, 238252886, 2609064910, 7055458 ####[facility] [address] [place], [place] [address]Luyxqjvrf 80-68-3931Uuwrnvc (P) [Moles/Vol]46 itpaoUbkx66-51HeegsmAdena Health SystemComment on above: Performed By: #### 5619875, 8419970, 6332981, 9610869, 9173161, 22833720, 5346372, 8969033 ####[facility] [address] [place], [place] [address]Avvx Directon 09-46-6003Cjizmxcbw.direct [Mass/Vol]1.6 mg/dL High0.0-0.4FMercy Health Perrysburg HospitalComment on above:Order Comment: Order Added by Discern Expert.Performed By: #### 2973483, 6034108, 3014267, 7192012, 6577167, 29115175, 0254537, 7121387 ####[address] [address]WOC w/ Auto Diffon 12-21-2023 Basophils/100 WBC (Bld)0.5 %Normal0.0-2.0[facility] Health SystemComment on above:Performed By: #### 7145249, 4192236, 0637422, 3117954, 8423367, 54278791, 3470103, 3688889 ####[address] [address]Xfwncqhtf/Leukocytes Auto (Bld) [Pure # fraction]0.0 E9/L Normal0.0-0.2FMercy Health Perrysburg HospitalComment on above:Performed By: #### 8084224, 8327894, 9286037, 8009742, 0905621, 99122837, 8040894, 7420157 ####[address] [address] Eosinophils (Bld) [#/Vol]0.1 E9/LNormal0.0-0.5FMercy Health Perrysburg HospitalComment on above:Performed By: #### 9970594, 0573377, 2461349, 0727988, 1355028, 95407050, 4574252, 9888264 ####[address] [address]Wurlcnbptir/100 WBC (Bld)2.4 %Normal0.0-8.0[facility] Health SystemComment on above:Performed By: #### 3885889, 2753222, 8773270, 7813079, 0823610, 23357777, 9377030, 8051646 ####[address] [address]Icwweusmwnf distribution width (RBC) [Ratio]15.9 %High10.9-14.2FMercy Health Perrysburg HospitalComment on above: Performed By: #### 0303000, 0233073, 2197250, 4884362, 3347640, 47407610, 5988459, 6841631 ####[facility] [address] [place], [place] [address]Iwvjwsoslf (Bld) [Volume fraction]32.3 %Low37.7-49.0[facility] Health SystemComment on above:Performed By: #### 2865233, 8607997, 8790983, 8172212, 5155373, 63024867, 1319476, 3697563 ####[facility] [address] [place], [place] [address]Kuuvlvjtpu (Bld) [Mass/Vol] 11.0 g/dLLow13.5-17.5FMercy Health Perrysburg HospitalComment on above:Performed By: #### 0308779, 3507651, 3764447, 2938573, 9687336, 55732552, 3312102, 5772131 ####[facility] [address] [place] [address] Lymphocytes (Bld) [#/Vol]0.9 E9/LLow1.0-4.0[facility] Health SystemComment on above:Performed By: #### 0849105, 0358113, 4675325, 6710451, 2737215, 02825170, 9484141, 0353608 ####[facility] [address] [place], [place] [address]Gnihavwszee/100 WBC (Bld)19.5 %Mqmlgk10.0-50.0[facility] Health SystemComment on above:Performed By: #### 6589938, 8524882, 7186790, 2773653, 9132342, 77034584, 1867698, 9715762 ####[facility] [address] [place], [place] [address]LAQ (RBC) [Entitic mass]36.3 pgHigh 27.0-34.0[facility] Health SystemComment on above:Performed By: #### 6362278, 3330297, 4956999, 1853835, 0962290, 11447493, 0280918, 9389719 ####[address] [address]SZJV (RBC) [Mass/Vol] 34.2 g/dCQnkwlz36.4-36.0[facility] Health SystemComment on above:Performed By: #### 6167616, 4869455, 4266319, 9722679, 2519342, 30732068, 0580741, 1928547 ####[address] [address]ZWI (RBC) [Entitic vol]106.1 qQTpcp54.0-100.0[facility] Health SystemComment on above:Performed By: #### 6988968, 1258936, 0245263, 8105631, 3202795, 86282114, 6055672, 8300338 ####[address] [address]Xelcmtmfo (Bld) [#/Vol]0.4 E9/LNormal0.2-1.0[facility] SystemComment on above:Performed By: #### 4939660, 0847041, 3404772, 2646731, 8431769, 17066073, 6850468, 9860344 ####[address] [address]Prlznbohoqy (Bld) [#/Vol]3.0 E9/L Normal2.0-7.5FMercy Health Perrysburg HospitalComment on above:Performed By: #### 6635482, 0095488, 7738593, 0949893, 2867767, 93171145, 0492343, 3499462 ####[address] [address] Neutrophils/100 WBC (Bld)68.7 %Rqqfxh96.0-75.0[facility] Health SystemComment on above:Performed By: #### 5708892, 8859358, 8566205, 8759374, 0332937, 56710027, 0249292, 2890241 ####[address] [place], [place] [address]Rmjoqfuz66.0 E9/OGxg509.0-500.0[facility] Health SystemComment on above:Performed By: #### 1845894, 0971061, 0785840, 7274374, 2012887, 51518508, 0440670, 0043081 ####[address] [address]Qcwhtsey mean volume (Bld) [Entitic vol]8.2 fLNormal6.4-10.8[facility] Health SystemComment on above:Performed By: #### 7303349, 2516799, 8116273, 3696282, 6333548, 78054991, 2515035, 2205088 ####[address] [address]CGN (Bld) [#/Vol]3.0 E12/LLow4.3-5.9A[facility] Health SystemComment on above: Performed By: #### 5208510, 0526635, 4787382, 4154099, 4836599, 86988902, 1243038, 1341927 ####[address] [address]XUA corrected for nucl RBC Auto (Bld) [#/Vol]4.4 E9/LNormal 4.0-11.0[facility] Health SystemComment on above:Performed By: #### 1296999, 9278495, 5455094, 1933978, 2270141, 32647438, 4129460, 8425889 ####[address] [address]AKDQBEXOMCcntxxd By: SYSTEM SYSTEM on 714168-cumhwuttecghqa D3 [Mass/Vol]17.7 ng/mLLow30.0 - 100.0 ng/mLRemisol ChemAlbumin [Mass/Vol]3.6 g/dLNormal3.3 - 5.0 gm/dLRemisol ChemAlbumin/Globulin [Mass ratio]1.1 {ratio}Normal1.1 - 2.2Remisol ChemALP [Catalytic activity/Vol]262 [iU]/dHigh21 - 98 Int._Unit/LRemisol ChemALT No additional P-5'-P [Catalytic activity/Vol]60 [iU]/dHigh6 - 46 Int._Unit/LRemisol ChemAmmonia (P) [Moles/Vol]46 jqegCpqb01 - 35 mcmolRemisol ChemAnion gap [Moles/Vol]13 mmol/LNormal6 - 16 mEq/LRemisol ChemAST [Catalytic activity/Vol]91 [iU]/dHigh5 - 43 Int._Unit/LRemisol ChemBilirubin [Mass/Vol]7.8 mg/dLHigh0.0 - 1.1 mg/dLRemisol ChemBilirubin.direct [Mass/Vol]1.6 mg/dLHigh0.0 - 0.4 mg/dL Remisol ChemCalcium [Mass/Vol]9.2 mg/dLNormal8.9 - 11.1 mg/dLRemisol Chem Chloride [Moles/Vol]99 mmol/UQlb167 - 111 mmol/LRemisol ChemCO2 [Moles/Vol]25 mmol/KLnjjqp39 - 31 mmol/LRemisol ChemCobalamin (Vitamin B12) [Mass/Vol]pg/mL Jagdve15 - 1500 pg/mLRemisol ChemCreatinine [Mass/Vol]0.7 mg/dLNormal0.5 - 1.3 mg/dLRemisol ChemCRP [Mass/Vol]mg/dLNormal<=1.9mg/dLRemisol SmppmHJC899 mL/min/1.73 r4Wfojup>=59mL/min/1.73 b3Nrpsmwc ChemFerritin [Mass/Vol]385 ng/mL High24 - 336 ng/mLRemisol ChemFolate [Mass/Vol]19.8 ng/mLNormal>=6.7ng/mLRemisol ChemGamma glutamyl transferase [Catalytic activity/Vol]36 [iU]/dNormal6 - 48 Int._Unit/LRemisol ChemGlobulin (S) [Mass/Vol]3.4 g/dLNormal1.4 - 4.0 gm/dL Remisol ChemGlucose [Mass/Vol]112 mg/iHYcshng99 - 199 mg/dLRemisol ChemIron [Mass/Vol]269 ug/wSHtms67 - 153 mcg/dLRemisol ChemIron binding capacity [Mass/Vol]288 ug/rBNksilt190 - 400 mcg/dLRemisol ChemLipase [Catalytic activity/Vol]19 U/QQjhnft90 - 58 unit/LRemisol ChemMagnesium [Mass/Vol]1.6 mg/dL Normal1.3 - 2.4 mg/dLRemisol ChemPhosphate [Mass/Vol]3.6 mg/dLNormal1.9 - 4.6 mg/dLRemisol ChemPotassium [Moles/Vol]3.8 mmol/LNormal3.5 - 5.3 mmol/LRemisol ChemProtein [Mass/Vol]7.0 g/dLNormal6.0 - 7.8 gm/dLRemisol ChemSodium [Moles/Vol]133 mmol/CQyi293 - 145 mmol/LRemisol ChemTransferrin [Mass/Vol]206 mg/yEVmxojd209 - 370 mg/dLRemisol ChemTSH Qn1.64 m[IU]/LNormal0.34 - 5.60 mcIU/mLRemisol ChemUrate (U) [Mass/Vol]3.8 mg/dLNormal2.2 - 7.4 mg/dLRemisol ChemUrea nitrogen [Mass/Vol]8 mg/dLNormal5 - 21 mg/dLRemisol ChemUrea nitrogen/Creatinine [Mass ratio]11 mg/qxEypnik23 - 20Remisol ChemCHEMISTRY Ordered By: Татьяна Duff on 08-77-7251RrL0c (Bld) [Mass fraction]4.0 %Normal <=5.9%[facility] ChemAutoSSCMPon 69-53-8178Fvjptqm [Mass/Vol]3.6 g/dLNormal3.3-5.0 [facility] SystemComment on above:Performed By: #### 1287916, 5939494, 5952036, 9692267, 4399521, 79069793, 0469481, 9615922 ####[address] [place], [place] [address]Mxvsjlw/Globulin (S) [Mass conc ratio]1.0Reqnei4.1-2.2FMercy Health Perrysburg HospitalComment on above:Performed By: #### 6097049, 6894381, 6586817, 9058275, 3267938, 06091884, 1849411, 7900745 ####[address] [place], [place] [address]DKS [Catalytic activity/Vol]262 Int._Unit/PLqwh26-18QbcvcqAdena Health System Comment on above:Performed By: #### 6540660, 7560771, 3384852, 1311664, 6434661, 83399784, 2365547, 3527403 ####[address] [address]PUZ No additional P-5'-P [Catalytic activity/Vol]60 Int._Unit/[facility]6-46A[facility] Health SystemComment on above:Performed By: #### 9929029, 4407359, 8009385, 5580966, 7586780, 87654001, 5362580, 9711516 ####[address] [address]Lwhtr gap [Moles/Vol]13 mmol/LNormal6-16A[facility] Health SystemComment on above: Performed By: #### 6653893, 4236467, 8297409, 5363223, 2296083, 20976043, 0549788, 5186747 ####[address] [address]ALL [Catalytic activity/Vol]91 Int._Unit/[facility]5-43A[facility] Health SystemComment on above:Performed By: #### 9771185, 8809426, 9526632, 9245104, 1631639, 79608728, 9551059, 8872473 ####[address] [address]Iovmfzqci [Mass/Vol]7.8 mg/dL High0.0-1.1FMercy Health Perrysburg HospitalComment on above:Performed By: #### 4863044, 2343492, 5556733, 1617442, 7236503, 44512868, 7940777, 4447170 ####[facility] [address] [place] [address] Calcium [Mass/Vol]9.2 mg/dLNormal8.9-11.1FMercy Health Perrysburg HospitalComment on above:Performed By: #### 3824828, 8800655, 2568035, 2014889, 2982983, 41087286, 1428176, 0943346 ####[facility] [address] [place], [place] [address]Tklrmert [Moles/Vol]99 mmol/XPdq215-072MnvskiAdena Health SystemComment on above:Performed By: #### 8942242, 9079850, 1619173, 8822904, 0962400, 53060052, 9361848, 2546475 ####[facility] [address] [place], [place] [address]SM2 [Moles/Vol]25 mmol/TUfotky73-00 [facility] SystemComment on above:Performed By: #### 9759816, 1831841, 3811695, 5078278, 7127118, 15209100, 9691361, 5709087 ####[facility] [address] [place], [place] [address]Wrpcwtmpjd [Mass/Vol]0.7 mg/dL Normal0.5-1.3FMercy Health Perrysburg HospitalComment on above:Performed By: #### 0615392, 2125487, 6484821, 7561389, 6638749, 04823075, 4680885, 5807009 ####[facility] [address] [place] [address] Globulin (S) [Mass/Vol]3.4 g/dLNormal1.4-4.0[facility] Health SystemComment on above:Performed By: #### 9737937, 9337956, 2690916, 2245949, 4829224, 96675922, 3333167, 4946837 ####[address] [address]Wkoixcv [Mass/Vol]112 mg/iZFutbos45-446IrzmxhAdena Health SystemComment on above:Performed By: #### 9642472, 3583912, 3004129, 6118638, 4313603, 73731562, 5275044, 3651096 ####[address] [address]Wchqouupl [Moles/Vol]3.8 mmol/LNormal 3.5-5.3FMercy Health Perrysburg HospitalComment on above:Performed By: #### 1941015, 4541186, 4441512, 9282289, 0309787, 63094369, 1159616, 6321881 ####[address] [address]Nszzujp [Mass/Vol]7.0 g/dLNormal6.0-7.8A[facility] Health SystemComment on above:Performed By: #### 0901603, 6704182, 8281981, 9286323, 5520477, 60168479, 3305150, 4127017 ####[address] [address] Sodium [Moles/Vol]133 mmol/UFae305-431RnhnrtAdena Health SystemComment on above:Performed By: #### 2015983, 9264304, 5307323, 4924778, 6071946, 35325335, 2891101, 5473082 ####[address] [address]Uewu nitrogen [Mass/Vol]8 mg/dLNormal5-21A[facility] Health SystemComment on above:Performed By: #### 6999102, 8968238, 8504258, 6402818, 7254943, 80791179, 1982847, 7481339 ####[address], [place] [address]Xwil nitrogen/Creatinine [Mass ratio] 11 No FplvpXzhimw94-97VudeusAdena Health SystemComment on above:Performed By: #### 4361442, 6938039, 8081554, 8407499, 5758550, 02934560, 2813954, 2382119 ####[facility] [address] [place] [address] COAGULATIONOrdered By: Jefry Murillo on 69-75-0478BEX Coag (PPP) [Relative time] 1.81 {INR}Invalid Interpretation CodeFAIRFAX COMMUNITY H[facility] [place] Auto CoagComment on above:Interpretive Data: INR results are specifically intended to assess patients stabilized on long-term Anticoagulation therapy suggested INR s Less Intensive Anticoagulation 2.0 3.0 Conventional Range 3.0 4.5PT Coag (PPP) [Time]20.4 sHigh9.4 - 12.5 second(s)[facility] Auto CoagComment on above:Interpretive Data: 15 days - 4 weeks 1 - [...] the same coagulation reagent and instrumentation as [facility]. Currently there are no coagulation studies available worldwide for children to 14 days, andno normal ranges.CRPon 90-01-7646TAG [Mass/Vol]mg/LNormal<=1.9[facility] Health SystemComment on above:Performed By: #### 6380231, 5716604, 0115162, 3405044, 8944379, 43732686, 1547801, 0975562 ####[facility] [address] [place], [place] [address]Oigwheq for Treatmenton 12-21-2023 Consent for [id number]#1.00TIFFNormal [facility] Health SystemFerritinon 59-15-8185Mzzjmyfr [Mass/Vol]385 ng/mLHigh 24-336[facility] Health SystemComment on above:Performed By: #### 7236873, 056010267, 68933390, 5079310, 4170105, 270718901, 4447432, 8349672, 17052822, 5037164, 5434847, 5867480, 7457331933, 102926892, 6988540352, 8542318 ####[facility] [address] [place], [place] [address]Vhnwwjur 58-81-3326Vpanrd [Mass/Vol]19.8 ng/mLNormal>=6.7FMercy Health Perrysburg Hospital Comment on above:Performed By: #### 2619807, 120577820, 81953392, 7907797, 5524776, 498762744, 0066043, 2325187, 07866468, 6563041, 9955964, 9405054, 3369372740, 298226487, 1015307605, 8127980 ####[address] [address]WDWcl 15-44-39[address]Mqkvh glutamyl transferase [Catalytic activity/Vol]36 Int._Unit/LNormal6-48[facility] Health SystemComment on above:Performed By: #### 2037083, 780929137, 66312078, 8912727, 4345730, 965777656, 9324892, 9965265, 11488300, 8892316, 6028060, 1086183, 0375314781, 614478139, 1207071432, 1001276 ####[address] [address]TXANBCONZCGeivtpw By: SYSTEM SYSTEM on 77-58-1636Bjthcwwlr/100 WBC (Bld)0.5 %Normal0.0 - 2.0 %Remisol Heme Basophils/Leukocytes Auto (Bld) [Pure # fraction]0.0 E9/LNormal0.0 - 0.2 E9/L Remisol HemeEosinophils (Bld) [#/Vol]0.1 E9/LNormal0.0 - 0.5 E9/LRemisol Heme Eosinophils/100 WBC (Bld)2.4 %Normal0.0 - 8.0 %Remisol HemeErythrocyte distribution width (RBC) [Ratio]15.9 %High10.9 - 14.2 %Remisol HemeHematocrit (Bld) [Volume fraction]32.3 %Low37.7 - 49.0 %Remisol HemeHemoglobin (Bld) [Mass/Vol]11.0 g/dLLow13.5 - 17.5 gm/dLRemisol HemeLymphocytes (Bld) [#/Vol]0.9 E9/LLow1.0 - 4.0 E9/LRemisol HemeLymphocytes/100 WBC (Bld)19.5 %Xillat41.0 - 50.0 %Remisol HemeMCH (RBC) [Entitic mass]36.3 bvGqxg05.0 - 34.0 pgRemisol Heme MCHC (RBC) [Mass/Vol]34.2 g/uJImhfpk05.4 - 36.0 gm/dLRemisol HemeMCV (RBC) [Entitic vol]106.1 eYPdas07.0 - 100.0 fLRemisol HemeMonocytes (Bld) [#/Vol]0.4 E9/LNormal0.2 - 1.0 E9/LRemisol HemeMonocytes/100 WBC (Bld)8.9 %Normal4.0 - 14.0 %Remisol HemeNeutrophils (Bld) [#/Vol]3.0 E9/LNormal2.0 - 7.5 E9/LRemisol Heme Neutrophils/100 WBC (Bld)68.7 %Wfmrzc93.0 - 75.0 %Remisol DdkpLlapugqk94.0 E9/L Wnp424.0 - 500.0 E9/LRemisol HemePlatelet mean volume (Bld) [Entitic vol]8.2 fL Normal6.4 - 10.8 fLRemisol HemeRBC (Bld) [#/Vol]3.0 E12/LLow4.3 - 5.9 E12/L Remisol HemeReticulocytes/100 RBC (Bld)3.6 %High0.5 - 2.2 %Remisol HemeWBC corrected for nucl RBC Auto (Bld) [#/Vol]4.4 E9/LNormal4.0 - 11.0 E9/LRemisol MgxtVnkX2psq 11-41-0766BfR5j (Bld) [Mass fraction]4.0 %Normal<=5.9[facility] Health SystemComment on above:Performed By: #### 3097492, 425422080, 65188758, 7425317, 1556143, 350469921, 4689398, 0576518, 11121034, 5133029, 2883134, 5629672, 7753172039, 942538527, 8971584733, 3804761 ####[facility] [address] [place], [place] [address]Xjsezk 86-91-3652Yrcy [Mass/Vol]269 microgram/cCOdhd83-412KpyxcuAdena Health SystemComment on above: Performed By: #### 8314727, 589958661, 99802499, 7619949, 9360442, 395053580, 3615072, 7465459, 63285234, 6021857, 4401682, 8119640, 6834916119, 731054633, 1007816272, 3006707 ####[facility] [address] [place], [place] [address]Cvrekz Levelon 52-22-7246Ocsnjf [Catalytic activity/Vol]19 U/LMmtkly96-94UxnantAdena Health SystemComment on above:Performed By: #### 8909739, 0058170, 8387828, 1874551, 2451825, 39683649, 0121498, 5695117 ####[facility] [address] [place] [address] Magnesiumon 60-78-7266Lwudgmhgj [Mass/Vol]1.6 mg/dLNormal1.3-2.4FMercy Health Perrysburg HospitalComment on above:Performed By: #### 2221346, 202482907, 21967848, 1455653, 3370652, 043860093, 2820693, 4266329, 55853919, 7466972, 0821833, 8549022, 3436004588, 748576594, 2214698396, 8892134 ####[facility] [address] [place], [place] [address]ZVfw 38-18-8231EXW Coag (PPP) [Relative time]1.81 {INR}Invalid Interpretation CodeFisher [facility] Comment on above:Result Comment: INR results are specifically intended to assess patients stabilized on long-term Anticoagulation therapy suggested INR?s ?Less Intensive Anticoagulation? 2.0 ? 3.0 Conventional Range 3.0 ? 4.5Performed By: #### 4551125, 1651558, 3553819, 0837997, 1194249, 87070305, 3205450, 3546200 ####[facility] [address] [place], [place] [address]CV Coag (PPP) [Time]20.4 second(s) High9.4-12.5Fisher [facility] Medical CenterComment on above:Result Comment: 15 days - 4 weeks 1 - [...] the same coagulation reagent and instrumentation as [facility]. Currently there are no coagulation studies available worldwide for children to 14 days, andno normal ranges.Performed By: #### [id number], 8548296, 8030492, 9004727, 4151493, 35138781, 3182384, 4982719 ####[facility] [address] [place], [place] [address]Bkehsmawknup 96-52-1248Zodgggdik [Mass/Vol]3.6 mg/dLNormal1.9-4.6FMercy Health Perrysburg HospitalComment on above:Performed By: #### 7776979, 271629847, 30495835, 5183769, 7528634, 493733952, 5785480, 7083809, 18253596, 3997420, 4592930, 3127629, 7561589552, 756254122, 5388422567, 1503592 ####[facility] [address] [place], [place] [address]Okmmh Counton 61-36-0995Rmzusaptjcllv/100 RBC (Bld)3.6 %High.5-2.2FMercy Health Perrysburg HospitalComment on above:Performed By: #### 4503514, 386807783, 37974881, 0082559, 7091203, 791590023, 7752336, 9620267, 65379748, 7615395, 6034204, 9270240, 4655905951, 368334629, 6581856764, 2846873 ####[facility] [address] [place], [place] [address]VFKY Calculatedon 12-21-2023 Iron binding capacity [Mass/Vol]288 microgram/dXYbhonh836-052QanttrAdena Health SystemComment on above:Performed By: #### 2827704, 302514432, 12336722, 7220345, 6312971, 811901163, 3490438, 1132966, 38601838, 8229441, 4844437, 8483687, 7083410316, 768874564, 6357137480, 8116580 ####[facility] [address] [place], [place] [address]Ynjesjrzhfd [Mass/Vol]206 mg/gKZuraug342-394LdxazcAdena Health SystemComment on above:Performed By: #### 5195429, 531570861, 45087003, 7185221, [id number], [id number], 0653156, 1931936, 38402505, 9272599, 1144817, 9165481, 2880283133, 523929398, 5682031496, 4648173 ####[address] [place], [place] [address]BGP With T4fr Reflexon 10-83-2262QPM Qn1.64 m[IU]/LNormal0.34-5.60Adena Health SystemComment on above:Performed By: #### [id number], [id number], 34397698, 7193113, 1028977, 884055381, 7897439, 1564236, 45321548, 0996908, 5711792, 0100945, 9765870619, 781945520, 8191178578, 1307327 ####[address] [address]NU with Cult Rflxon 12-21-2023 Bilirubin Ql (U)NegativeNormalNegBucyrus Community HospitalComment on above:Performed By: #### [id number] ####[address]Clarity (U)ClearNormalClearAdena Health SystemComment on above:Performed By: #### [id number] ####[address]Color (U)Yellow NormalYellowAdena Health SystemComment on above:Result Comment: Microscopic readings are only performed on those samples that meet specific criteria set forth by [facility].Performed By: #### [id number] ####[address] [address]Uowloth Ql (U)NegativeNormalNegBucyrus Community HospitalComment on above:Performed By: #### [id number] ####[address]Hemoglobin Auto test strip (U) [Mass/Vol]TraceAbnormalNegBucyrus Community HospitalComment on above: Performed By: #### [id number] ####[facility] [address] AveNorwalk, [place]Byokkoh Auto test strip Ql (U)NegativeNormalNegative [facility] SystemComment on above:Performed By: #### [id number] ####[facility] [address]ms[address]Norwalk, [place] Leukocyte esterase Auto test strip Ql (U)NegativeNormalNegativeAdena Health SystemComment on above:Performed By: #### [id number] ####[address]Norcalvary hospitalk, [place]X[address]Hcxfwdq Auto test strip Ql (U)NegativeNormalNegativeAdena Health SystemComment on above: Performed By: #### [id number] ####[address], [place]cO (U)6.5 [pH]Invalid Interpretation Code5.0-9.0 [facility] Health SystemComment on above:Performed By: #### [id number] ####[address] Duncan[address] AveNormiddlesex hospital, [place] Protein Ql (U)NegativeNormalNegativeAdena Health SystemComment on above: Performed By: #### [id number] ####[address] AveNorwalk, [place]Oglqbwog gravity (U) [Rel density]1.009Invalid Interpretation Code1.005-1.030Adena Health SystemComment on above: Performed By: #### [id number] ####[address] AveNorcalvary hospitalk, ZZ[address]Asttfjcmuowd (U) [Mass/Vol]NegativeNormalNegative [facility] SystemComment on above:Performed By: #### [id number] ####[address] AveNorwalk, [place]Ynmu of Urine collection methodCystoNormalAdena Health SystemComment on above:Performed By: #### [id number] ####[address], QN[address]DCPRYSJODLYcjddkb By: SYSTEM SYSTEM on 77-75-4114Hztcjmflt Ql (U)NegativeNormalNegativemg/dLFAIRFAX [facility] UA Auto SSClarity (U) Clear (12/21/23 1:21 PM)NormalClearFCREEK NATION [facility] UA Auto SSColor (U)Yellow 1 (12/21/23 1:21 PM)NormalYellowFAIRFAX COMMUNITY HOSPITAL [facility] UA Auto SSComment on above:Interpretive Data: Microscopic readings are only performed on those samples that meet specific criteria set forth by [facility].Glucose Ql (U) NegativeNormalNegativemg/dLFAIRFAX COMMUNITY [facility]OS[facility] UA Auto SSHemoglobin Auto test strip (U) [Mass/Vol]Trace mg/dLInvalid Interpretation CodeNegativemg/dLFAIRFAX COMM[facility]ITY [facility] UA Auto SS Ketones Auto test strip Ql (U)NegativeNormalNegativemg/dLFAIRFAX COMM[facility]ITY [facility] UA Auto SS Leukocyte esterase Auto test strip Ql (U)NegativeNormalNegativeLeu/uLFAIRFAX COMMUNITY HOSPITAL [facility] UA Auto SSNitrite Auto test strip Ql (U)NegativeNormalNegativemg/dLFAIRFAX COMM[facility]ITY [facility]OS[facility] UA Auto SS pH (U)6.5 *NA* (12/21/23 1:21 PM)Invalid Interpretation Code5.0 - 9.0[facility] UA Auto SSProtein Ql (U)NegativeNormalNegativemg/dLFAIRFAX COMMUNITY HOSPITAL [facility] UA Auto SSSpecific gravity (U) [Rel density] 1.009 *NA* (12/21/23 1:21 PM)Invalid Interpretation Code1.005 - 1.030[facility] Auto SS Urobilinogen (U) [Mass/Vol]NegativeNormalNegativemg/dLFAIRFAX COMMUNITY [facility]OSPITAL [facility] UA Auto SSURINALYSIS Ordered By: Karina Vela on 47-49-7939RS Spec DescCysto (12/21/23 1:21 PM)NormalFAIRFAX COMMUNITY HOSPITAL [facility] UA Auto SSUric Acidon 92-55-5026Lrkfw (U) [Mass/Vol] 3.8 mg/dLNormal2.2-7.4[facility] CenterComment on above:Performed By: #### 1954600, 066011581, 09719571, 0173651, 7034469, 778383468, 2773094, 5082093, 01530857, 2955778, 4539807, 1149519, 6116588428, 424960000, 1656780507, 6427897 ####[facility] [address] [place], [place] [address]Mht B12on 81-26-8931Qnrvnbyah (Vitamin B12) [Mass/Vol]pg/yUYfqdnr99-5976 [facility] Health SystemComment on above:Performed By: #### 8035620, 101735169, 39533379, 1106260, 2146378, 588085731, 5055501, 3979532, 03521414, 6431164, 5797999, 0271455, 4525180446, 611772343, 6103383983, 4985534 ####[address] [place], [place] [address]Trhnjab D 25 Hydroxyon 04-66-537353767134-fwskuopzstopxf D3 [Mass/Vol]17.7 ng/mLLow30.0-100.0A[facility]a Health SystemComment on above:Performed By: #### 6603455, 997964312, 17585874, 0163872, 3851644, 718520070, 8464909, 5222629, 47007005, 4183239, 2259820, 0651445, 1676099269, 864708401, 9374592600, 8766426 ####[address] [place], [place] [address]hMOMqv 86-14-5342lIRM 120 mL/min/1.73 f5Yvmhda>=59Adena Health SystemComment on above:Order Comment: Order added by Discern Expert.Performed By: #### 8887669, 4744108, 3558805, 1873516, 9418154, 75984679, 1624099, 3587759 ####[address] [place], [place] [address]Mugufdvlq Referralon 14-06-8504Sguhzqavf [id number]#1.00TIFF [facility] HospitalDischarge Instructionson 24-08-3688Acpmwtbgm [id number]#1.00TIFFNormParkview HealthInpatient Clinical Summaryon 12-84-1825Asonkjjoi Clinical Summary [address] [address] Clinical Summary Person Information: Name: WILL RALPH Age: 38 Years : 1985 Sex: Male PCP: Loreta Padilla Marital Status: Single Race: White Ethnicity: Non- or Language: Namibian Visit Id: Visit Reason: STAT TRANSPORT, ALLERGIC REACTION Speciality: Acuity: Enc Type: Observation Med Service: Medical Arrival: 12/11/2023 09:05:01 Discharge: 12/13/2023 12:15:00 Dispo Type: Home (Routine DC) Address: [address] [place] [address] [place] [id number] Provider Notes: Diagnosis: 1:Intractable pain; 2:Cirrhosis; 3:Tobacco [...] cuff (size appropriate). Refills: 0. Misc Prescription ([facility] D[facility] Prescription) Cornell SAP Dressing 4 x 4 dressing. Misc Prescription ([facility] D[facility] Prescription) LiquidIV hydration. Mis Prescription ([facility] DME Prescription) Muscle & joint balm [...] pain. Refills: 0. potassium chloride (Potassium Chloride (Hbg-Zvdc-Rek M20) 20 mEq oral tablet, extended release) 1 Tablets By Mouth 2 times a day. Refills: 3. spironolactone (spironolactone 50 mg Tab) 1 Tablets By Mouth every day. sulfamethoxazole-trimethoprim (Bactrim) By Mouth. taskes 3 times a week. Care Team Members: Attending Physician: Desi Mena MD Consulting Physician: Referring Physician: Follow up: With: Address: When: [facility]ane[facility] [facility] [address] [address] Business (1) Type Location Start Finish State [facility] 01/27/2024 9:40 AM 01/27/2024 10:00 AM Confirmed BADH Follow Up [facility] 05/12/2024 3:15 PM 05/12/2024 3:30 PM Confirmed Patient Education Information: Drug Allergy, Vrqj-ko-Kvfb; Chronic Back Pain; CirrhosisNormalAdena Health SystemInpatient Patient Summaryon 91-54-2596Rwgatgqyc Patient Summary [address] [address] Patient Discharge Instructions PERSON INFORMATION Name: NOREEN RALPHOS Elder Date of : 1985 Current Date: 12/14/2023 08:58:59 PHYSICIANS Admitting Physician: Rajesh MULTANI, Desi Primary Care Physician: Loreta Padilla PCP Comment: [...] Follow up: With: Address: When: Loreta Cummings [address] [place] [address] A, [address] [address] Business (1) In the event that this physician does not participate in your insurance network, please consult with your insurance company to find a nearby participating provider. Type Location Start Finish State FM [facility] 01/27/2024 9:40 AM 01/27/2024 10:00 AM Confirmed [facility] 05/12/2024 3:15 PM 05/12/2024 3:30 PM Confirmed Comment: JUSTIN Montano AMOS J, have received the attached patient education materials/instructions and have verbalized understanding: Patient Signature Date Clinican/Nurse Signature Date HERE ARE THE MEDICATION CHANGES THAT OCCURRED DURING YOUR HOSPITAL STAY Medications to Continue with No Changes Other Medications folic acid (folic acid 1 mg Tab) 1 Tablets By Mouth every day. Last Dose: Next Dose: furosemide (furosemide 20 mg Tab) 1 Tablets By Mouth every day. Last Dose: Next Dose: lactulose (lactulose 10 g/15 mL Oral Syrup) 30 Milliliter By Mouth 4 times a day. Refills: 1. Last Dose: Next Dose: lidocaine topical (lidocaine Top 5% film Patch) 1 Patches Topical every day. apply 12 hours on and 12 hours off daily remove patches after 12 hours may substitute for 4 % patches if insurance coverage issue. Refills: 0. Last Dose: Next Dose: Misc Prescription (BP cuff device and appropriate size please) BP Device/ machine and cuff (size appropriate). Refills: 0. Last Dose: Next Dose: Misc Prescription (Misc DME Prescription) Cornell SAP Dressing 4 x 4 dressing. Last Dose: Next Dose: Misc Prescription (Misc DME Prescription) LiquidIV hydration. Last Dose: Next Dose: Misc Prescription (Misc DME Prescription) Muscle & joint balm CBD 880mg. Last Dose: Next Dose: multivitamin (Tab-A-Scott oral tablet) 1 Tablets By Mouth every day. Last Dose: Next Dose: mycophenolate mofetil (mycophenolate mofetil 500 mg oral tablet) 1 Tablets By Mouth 2 times a day. Last Dose: Next Dose: naloxone (Narcan 4 mg/0.1 mL nasal spray) 4 Milligram Nasal Inhalation As Directed. for suspected overdose symptoms. Refills: 0. Last Dose: Next Dose: ondansetron (Zofran ODT 4 mg Tab) 1 Tablets By Mouth 3 times a day as needed Nausea. Refills: 0. Last Dose: Next Dose: oxycodone (oxyCODONE 5 mg Tab) 0.5 tab By Mouth every 6 hours as needed for pain. for leg pain. Refills: 0. Last Dose: Next Dose: potassium chloride (Potassium Chloride (Ezg-Rhsc-Oah M20) 20 mEq oral tablet, extended release) 1 Tablets By Mouth 2 times a day. Refills: 3. Last Dose: Next Dose: spironolactone (spironolactone 50 mg Tab) 1 Tablets By Mouth every day. Last Dose: Next Dose: sulfamethoxazole-trimethoprim (Bactrim) By Mouth. taskes 3 times a week. Last Dose: Next Dose: Comment: MEDICATION LIST PROVIDED FOR YOU IS A LIST OF YOUR CURRENT MEDICATIONS. PLEASE CARRY THIS WITH YOU AT ALL TIMES. folic acid (folic acid 1 mg Tab) 1 Tablets By Mouth every day. furosemide (furosemide 20 mg Tab) 1 Tablets By Mout (more content not included)...[facility] 12-14-2023 Population HealthCase Information Case Priority: None Programs: Transition Care Management Referral Source: System Identified Referral Reason: System identified Case Type: Transition Care Management Risk Score: 5.03 Case Status: Enrolled (December 14, 2023) Date Assigned: December 14, 2023 Assigned By: Shannon Benites RN Date Enrolled: December 14, 2023 Assigned Primary Personnel: Shannon Benites RN Assigned Secondary Personnel: Nasrin Greene RN Case Physician: Loreta Padilla Problems Ongoing Abscess of left leg excluding [...] Heavy alcohol use Procedure/Surgical History EGD - esophagogastroduodenoscopy (11/11/2023), Esophagogastroduodenoscopy (09/30/2023), I and D, Jaw. Home Medications [...] Oral, q6hr, PRN, Not taking Potassium Chloride (Rkl-Cohx-Src M20) 20 mEq oral tablet, extended release, 20 mEq= 1 tab(s), Oral,BID, 3 refills, Not taking spironolactone 50 mg [...] anemia, thrombocytopenia, intractable back pain, medication reaction. Medi cations reconciled with patient, EHR, and d/c list. [...] call Type: Outbound Duration (more content not included)...[facility] Luther[facility] HospitalBMPon 03-66-5968Ehwzx gap [Moles/Vol]8 mmol/LNormal6-16[facility] Health SystemComment on above: Performed By: #### [id number], [id number] ####[facility] Nut[address]aspjsf[address] AveNgreenwich hospital, [place] [address]Fdrcilm [Mass/Vol]8.0 mg/dLLow 8.9-11.1FMercy Health Perrysburg HospitalComment on above:Performed By: #### [id number], [id number] ####[facility] [address] Duncan[address] AveNgreenwich hospital, [place] [address]Sslnofsd [Moles/Vol]105 mmol/DTdzdlg543-802NkehxqAdena Health System Comment on above:Performed By: #### [id number], [id number] ####[facility] X[address] AveNNantuck[place], [place] [address]FD8 [Moles/Vol]26 mmol/LNormal 21-31A[facility] Health SystemComment on above:Performed By: #### 4524241, [id number] ####[facility] [address] AveNNantucket, [place] [address]Cjoqsopseo [Mass/Vol]0.5 mg/dLNormal0.5-1.3FMercy Health Perrysburg Hospital Comment on above:Performed By: #### [id number], [id number] ####[facility] [address] AveNgreenwich hospital, [place] [address]Jhxemwd [Mass/Vol]97 mg/dL Hxvopn30-965FuojxvAdena Health SystemComment on above:Performed By: #### [id number], [id number] ####[facility] [address] AveNgreenwich hospital, [place] [address]Ajcofdqjt [Moles/Vol]4.5 mmol/LNormal3.5-5.3FMercy Health Perrysburg HospitalComment on above:Performed By: #### 5629838, [id number] ####[facility] [address] AveNgreenwich hospital, [place] [address]Slqwkw [Moles/Vol]134 mmol/POcc974-840WgmnzeAdena Health SystemComment on above: Performed By: #### 1100326, [id number] ####[facility] [address] [place], [place] [address]Gzir nitrogen [Mass/Vol]9 mg/dLNormal 5-21A[facility] Health SystemComment on above:Performed By: #### 7761511, [id number] ####[facility] [address] [place], [place] [address]Cird nitrogen/Creatinine [Mass ratio]18 No XhjezBzermk37-30HdygyzAdena Health SystemComment on above:Performed By: #### [id number], [id number] ####[facility] [address] [place], [place] [address]OYAVODXHVLedprwg By: SYSTEM SYSTEM on 25-01-7847Dljbw gap [Moles/Vol]8 mmol/LNormal6 - 16 mEq/L Remisol ChemCalcium [Mass/Vol]8.0 mg/dLLow8.9 - 11.1 mg/dLRemisol ChemChloride [Moles/Vol]105 mmol/JQwwvcp920 - 111 mmol/LRemisol ChemCO2 [Moles/Vol]26 mmol/L Vgapdl14 - 31 mmol/LRemisol ChemCreatinine [Mass/Vol]0.5 mg/dLNormal0.5 - 1.3 mg/dLRemisol NzjqmOFD869 mL/min/1.73 s6Gfwvfr>=59mL/min/1.73 r3Pohxodb Chem Glucose [Mass/Vol]97 mg/yXOgpjys11 - 199 mg/dLRemisol ChemPotassium [Moles/Vol] 4.5 mmol/LNormal3.5 - 5.3 mmol/LRemisol ChemSodium [Moles/Vol]134 mmol/ZWwu386 - 145 mmol/LRemisol ChemUrea nitrogen [Mass/Vol]9 mg/dLNormal5 - 21 mg/dLRemisol ChemUrea nitrogen/Creatinine [Mass ratio]18 mg/qvUfpswp65 - 20Remisol Chem Discharge Note-Nursingon 15-17-0825Tnntopptk Note-Nursing WILL RALPH :1985 Visit Date:12/11/2023 Inpatient [...] 5 mg Tab) potassium chloride (Potassium Chloride (Frc-Xmmb-Lnp M20) 20 mEq oral tablet, extended release) spironolactone (spironolactone 50 mg Tab) sulfamethoxazole-trimethoprim (Bactrim) Procedure History EGD - esophagogastroduodenoscopy (11/11/2023), Esophagogastroduodenoscopy (09/30/2023), I and D, Jaw. Discharge Vitals Temperature (Axillary) 37.2 ?C Heart Rate (Monitored) 87 Blood Pressure 119/68 Weight 73.2 kg What to do next Instructions From Your Doctor Event Name Event Result Pending Diagnostic Test Results None Pharmacy Information [facility] Previously Scheduled Follow-Up Appointments Thursday 9:40 AM EDT With: Loreta Padilla Where: [facility] Primary [address] [address]- \.br\ New Follow Up Lauren ointments after Discharge\.br\ Follow Up with Loreta Cummings When: In 0 days\.br\ Where:\.br\ [address]br\ [facility] 4\.br\ [place] [address]-\.br\ [facility] (1)\.br\ Medications\.br\ What How Much When Why [...] a day 12/13/2023 @ 2pm\.br\ Unchanged lidocaine topical(lidocaine Top 5% film Patch) 1 Patches Topical [...] Misc Prescription (Misc DME Prescription) See instructions Cornell SAP Dressing 4 x 4 dressing \.br\ [...] as needed for Nausea Nausea 3 times aday as needed for Nausea\.br\ Unchanged oxycodone (oxyCODONE 5 mg Tab) 0.5 tab By Mouth Every 6 hours as needed for for pain Peripheral vascular disease Leg pain for leg pain Every 6 hours as needed for for pain, cannot take next dose till 12/13/2023 @ 12pm\.br\ Unchanged potassium chloride (Potassium Chloride (Cfh-Dkai-Agx M20) 20 mEq oral tablet, extended release) 1 Tablets By Mouth 2 times a day 12/13/2023 @ 9pm\.br\ Unchanged spironolactone (spironolactone 50 mg Tab) 1 Tablets By Mouth Every day 12/14/2023 @ 9am\.br\ Unchanged sulfamethoxazole-trimethoprim (Bactrim) By Mouth taskes 3 times a [...] mmol/L (12/13/23 07:28:00)\.br\ Platelet: 71 E9/L Low (12/11/23 09:31:00)\.br\ AGAP: 8 mEq/L (12/13/23 07:28:00)\.br\ MPV: 8.8 fL (12/11/23 09:31:00)\.br\ Calcium Lvl: 8 mg/dL Low (12/13/23 07:28:00)\.br\ Allergies\.br\ Definity (Back Pain)\.br\ amoxicillin (Unknown)\.br\ penicillin (unknown)\.br\ Problems\.br\ Ongoing - Any problem that you are currently receiving treatment for.\.br\ Abscess of left leg excluding foot\.br\ Alcohol use disorderin remission\.br\ Anemia\.br\ Cellulitis of leg, right\.br\ Cirrhosis\.br\ Dependent edema\.br\ Elevated blood pressure reading\.br\ Elevated fasting glucose\.br\ Elevated INR\.br\ Elevated liver enzy mes\.br\ Esophageal varices\.br\ Headache\.br\ HTN (hypertension)\.br\ Hypokalemia\.br\ Intractablepain\.br\ Liver cirrhosis, alcoholic\.br\ Megaloblastic anemia\.br\ Nausea\.br\ Portal venous hypertension\.br\ Smokeless tobacco use\.br\ Thrombocytopenia\.br\ Tobacco user\.br\ Varicose veins of leg s\.br\ Venous ulcer of right leg\.br\ Historical - Any problem that you are no longer receiving treatment for.\.br\ Denies\.br\ Heavy alcohol use\.br\ Education Materials\.br\ Drug Allergy\.br\ A drug allergy is when your body reacts in a bad way to a medicine. The reaction may be mild or very bad.In some cases, it can be life-threatening.\.br\ If you have an allergic reaction, get help right away. You should get help even if the reaction seems mild.\.br\ What are the causes?\.br\ This condition is caused by a reaction in your body's defense system. The system sees a medicine as being harmful when it is not.\.br\ What are the signs or symptoms?\.br\ Symptoms of a mild reaction\.br\ ? \.br\A stuffy nose.\.br\ ? \.br\ Tingling in your mouth.\.br\ ? \.br\ An itchy, red rash.\.br\ Symptoms of a very bad reaction\.br\ ? \.br\ Swelling of your eyes, lips, face, tongue, mouth or back of yourthroat.\.br\ ? \.br\ Itchy, red, swollen areas of skin.\.br\ ? \.br\ Feeling dizzy or light-headed.\.br\ ? \.br\ Feeling mixed up.\.br\ ? \.br\ [...] shot for a very bad allergic reaction (epinephrine).\.br\ For a very bad reaction, you may need to stay inthe hospital. Your doctor may teach you how [...] your life. Use it as told by yourdoctor.\.br\ ? \.br\ Make sure that you, the people who live with you, and your employer know how to use your allergy pen or kit.\.br\ ? \.br\ If you used your allergy pen or kit:\.br\ ? \.br\ Get more medicine for it right away. This is important in case you have another reaction.\.br\ ? \.br\ Gethelp right away.\.br\ ? \.br\ Wear a medical alert bracelet or necklace that says you have an allergy, if your doctor tells you to do this.\.br\ General instructions\.br\ ? \.br\ Avoid medicines thatyou are allergic to.\.br\ ? \.br\ Take yknp-ari-fhjtwpn and prescription medicines only as told by your doctor.\.br\ ? \.br\ If you were given allergy medicines, do not drive until your health care provider tells you it is safe.\.br\ ? \.br\ If you have hives or a rash:\.br\ ? \.br\ Use fogv-ylg-znetymf medicines as told by your doctor.\.br\ ? \.br\ Put cold, wet cloths on your skin.\.br\ ? \.br\Take baths or showers in cool water. Avoid hot water.\.br\ ? \.br\[facility]a Health SystemMonitor Recordon 82-60-8948Gmttglx [id number]#1.00TIFFNormal [facility] Health SystemPatient Education - Texton 71-87-4933Ejnalmg Education - TextGastroenterology Cirrhosis Cirrhosis is long-term (chronic) liver injury. [...] is one of the most common inherited liverdiseases. In this disease, deposits of iron collect [...] notice that your clothes are tight around yourwaist. ? Weight gain and swelling of the [...] donor is used to replace your diseased liver.This is done if cirrhosis has caused liver [...] provider before taking any new medicines, including bawe-lls-aalcyoo medicines such as NSAIDs. ? Rest as needed. ? Eat a well-balanced diet. ? Limit your salt or water intake, if your health care provider asks you to do this. ? Do not drink alcohol. This is especially important if you routinely take acetaminophen. ? Keep all f (more content not included)...NormalAdena Health SystemeGFR on 02-57-0536hZPT156 mL/min/1.73 j6Meedwx>=59Adena Health SystemComment on above:Order Comment: Order added by Discern Expert.Performed By: #### [id number], [id number] ####[facility] [address] [place], [place] [address]IFVFHTMADQmuikqt By: SYSTEM SYSTEM on 31-34-7510Qeqza gap [Moles/Vol]12 mmol/LNormal6 - 16 mEq/LRemisol ChemCalcium [Mass/Vol]8.4 mg/dLLow 8.9 - 11.1 mg/dLRemisol ChemChloride [Moles/Vol]103 mmol/WUgoltp188 - 111 mmol/L Remisol ChemCO2 [Moles/Vol]21 mmol/FNapots37 - 31 mmol/LRemisol ChemCreatinine [Mass/Vol]0.5 mg/dLNormal0.5 - 1.3 mg/dLRemisol MrwekUCG957 mL/min/1.73 v4Jpawlz >=59mL/min/1.73 u2Llangvm ChemGlucose [Mass/Vol]93 mg/eMUlaokq88 - 199 mg/dL Remisol ChemPotassium [Moles/Vol]4.8 mmol/LNormal3.5 - 5.3 mmol/LRemisol Chem Sodium [Moles/Vol]131 mmol/CEeu854 - 145 mmol/LRemisol ChemUrea nitrogen [Mass/Vol]10 mg/dLNormal5 - 21 mg/dLRemisol ChemUrea nitrogen/Creatinine [Mass ratio]20 mg/eeGwkevo51 - 20Remisol ChemAnion gap [Moles/Vol]13 mmol/LNormal6 - 16 mEq/LRemisol ChemCalcium [Mass/Vol]8.8 mg/dLLow8.9 - 11.1 mg/dLRemisol Chem Chloride [Moles/Vol]101 mmol/YWtulxg225 - 111 mmol/LRemisol ChemCO2 [Moles/Vol] 21 mmol/XDrjmcn40 - 31 mmol/LRemisol ChemCreatinine [Mass/Vol]0.5 mg/dLNormal0.5 - 1.3 mg/dLRemisol QxdvhJWK782 mL/min/1.73 b0Hfkjxg>=59mL/min/1.73 t6Ljatanr ChemGlucose [Mass/Vol]93 mg/qUYheykp62 - 199 mg/dLRemisol ChemPotassium [Moles/Vol]4.1 mmol/LNormal3.5 - 5.3 mmol/LRemisol ChemSodium [Moles/Vol]131 mmol/YRkp579 - 145 mmol/LRemisol ChemUrea nitrogen [Mass/Vol]8 mg/dLNormal5 - 21 mg/dLRemisol ChemUrea nitrogen/Creatinine [Mass ratio]16 mg/egEcsijr72 - 20 Remisol ChemHEMATOLOGYOrdered By: SYSTEM SYSTEM on 49-49-4265Cxeasqadz/100 WBC (Bld)0.3 %Normal0.0 - 2.0 %Remisol HemeBasophils/Leukocytes Auto (Bld) [Pure # fraction]0.0 E9/LNormal0.0 - 0.2 E9/LRemisol HemeEosinophils (Bld) [#/Vol]0.2 E9/LNormal0.0 - 0.5 E9/LRemisol HemeEosinophils/100 WBC (Bld)2.8 %Normal0.0 - 8.0 %Remisol HemeErythrocyte distribution width (RBC) [Ratio]15.9 %High10.9 - 14.2 %Remisol HemeHematocrit (Bld) [Volume fraction]32.9 %Low37.7 - 49.0 % Remisol HemeHemoglobin (Bld) [Mass/Vol]11.3 g/dLLow13.5 - 17.5 gm/dLRemisol Heme Lymphocytes (Bld) [#/Vol]0.9 E9/LLow1.0 - 4.0 E9/LRemisol HemeLymphocytes/100 WBC (Bld)17.1 %Njryvz31.0 - 50.0 %Remisol HemeMCH (RBC) [Entitic mass]36.2 pg High27.0 - 34.0 pgRemisol HemeMCHC (RBC) [Mass/Vol]34.4 g/eYGlatbh00.4 - 36.0 gm/dLRemisol HemeMCV (RBC) [Entitic vol]105.2 jUAnsf07.0 - 100.0 fLRemisol Heme Monocytes (Bld) [#/Vol]0.6 E9/LNormal0.2 - 1.0 E9/LRemisol HemeMonocytes/100 WBC (Bld)10.9 %Normal4.0 - 14.0 %Remisol HemeNeutrophils (Bld) [#/Vol]3.6 E9/L Normal2.0 - 7.5 E9/LRemisol HemeNeutrophils/100 WBC (Bld)68.9 %Jskbqn07.0 - 75.0 %Remisol HqunUgqvaqzr92.0 E9/SUlu341.0 - 500.0 E9/LRemisol HemePlatelet mean volume (Bld) [Entitic vol]8.8 fLNormal6.4 - 10.8 fLRemisol HemeRBC (Bld) [#/Vol] 3.1 E12/LLow4.3 - 5.9 E12/LRemisol HemeWBC corrected for nucl RBC Auto (Bld) [#/Vol]5.3 E9/LNormal4.0 - 11.0 E9/LRemisol HemeURINALYSISOrdered By: SYSTEM SYSTEM on 87-39-4180Bfcdu (U)Yellow 1 (12/11/23 9:36 AM)NormalYellowFT UA Auto SSComment on above:Interpretive Data: Microscopic readings are only performed on those samples that meet specific criteria set forth by [facility].Glucose (U) [Mass/Vol]NegativeNormalNegativemg/dLFT UA Auto SSKetones Ql (U)NegativeNormal Negativemg/dLFAIRFAX [facility] [place] UA Auto SSUA BloodNegativeNormalNegativemg/dLFAIRFAX [facility]ITY [facility] UA Auto SSUA ClarityClear (12/11/23 9:36 AM)NormalClearFTMC UA Auto SSUA Leuk EstNegativeNormal NegativeLeu/uLFT UA Auto SSUA NitriteNegativeNormalNegativemg/dLFTMC UA Auto SSUA pH7.0 *NA* (12/11/23 9:36 AM)Invalid Interpretation Code5.0 - 9.0FT UA Auto SSUA Protein NegativeNormalNegativemg/dLFAIRFAX [facility] [place] UA Auto SSUA Spec Grav1.007 *NA* (12/11/23 9:36 AM)Invalid Interpretation Code1.005 - 1.030FT UA Auto SSUA Urobilinogen2 mg/dL mg/dLInvalid Interpretation CodeNegativemg/dLFT UA Auto SS Urobilinogen (U) [Mass/Vol]NegativeNormalNegativemg/dLFTMC UA Auto SSURINALYSIS Ordered By: Brent Sanches on 56-89-4557SC Spec DescClean Catch (12/11/23 9:36 AM)NormalFT UA Auto SS Progress Noteson 36-61-4677Fpgokggfbjfsh Authentication Interface Message TextHematology AND Oncology Clinic Note Reason for Consult: [...] B27 positive) 2003 Followed with Rheum at [facility] Open fracture of other and [...] 120 min Stress: Stress Concern Present (02/27/2023) [employer] [place] [employer] - Occupational Stress Questionnaire Feeling of Stress : Very much Social Connections: Socially Isolated (02/27/2023) Social Connection and Isolation Panel [NHANES] Frequency of Communication with Friends and Family: More than three times a week Frequency of Social Gatherings with Friends and Family: Patient refused Attends Alevism Services: Never Active Member of Clubs or [...] TO 3 BOWEL MOVEMENTS/DAY 946 mL 3 sulfamethoxazole-trimethoprim 800-160 MG (Bactrim DS) 800-160 MG per tab (more content not included)...NormalThe [facility] SystemCHEMISTRYOrdered By: Nasrin Jha on 04-12-6009Pnvaypf DL <= 20 mg/L (U) [Mass/Vol]microgram/mL Normal0.0 - 19.0 mcg/mLFAIRFAX COMMUNITY [facility] RemisolAlbumin Elph (U) [Mass fraction]mg/dLInvalid Interpretation CodeFAIRFAX COMMUNITY [facility] RemisolComment on above:Interpretive Data: The reference range and other method performance specifications have not been established for this test; results should be integrated into the clinical context for interpretation.Creatinine (U) [Mass/Vol]22.5 mg/dLInvalid Interpretation Code [facility] RemisolComment on above:Interpretive Data: The reference range and other method performance specifications have not been established for this test; results should be integrated into the clinical context for interpretation.U Prot/Creat RatioUTCInvalid Interpretation Code0.00 - 200.00[facility] RemisolBasic metabolic 2000 panelon 33-71-9109Eefby gap [Moles/Vol]12 mmol/L10 - 20 [facility]HealthCalcium [Mass/Vol]8.6 mg/dL8.4 - 10.4 mg/dLMetroHealthChloride [Moles/Vol]104 mmol/L97 - 111 mmol/LMetroHealthCO2 [Moles/Vol]26 mmol/L21 - 30 mmol/LMetroHealthCreatinine [Mass/Vol]0.52 mg/dLLow0.80 - 1.30 mg/dLMetroHealth GFR/1.73 sq M.predicted MDRD (S/P/Bld) [Vol rate/Area]132 mL/min/{1.73_m2}- PINF MetroHealthComment on above:2020 CKD EPI Equation using Creatinine without Race [...] Inclusion of Race in Diagnosing Kidney Disease. AmericanJournal of Kidney Diseases 2021;79(2):268-88.e1. 2. N Engl J Med 2020 Vol. 385 Issue 19 Pages 2394-2325 Glucose [Mass/Vol]80 mg/dL68 - 110 mg/dLMetroHealthPotassium [Moles/Vol]4.0 mmol/L3.3 - 5.3 mmol/LMetroHealthSodium [Moles/Vol]138 mmol/L135 - 148 mmol/L MetroHealthUrea nitrogen [Mass/Vol]7 mg/dLLow8 - 22 mg/dLMetroHealthCBC WITH DIFFERENTIALOrdered By: Yany Carrera on 23-35-6823Xciqmrlwb (Bld) [#/Vol]0.04 10*3/uL0.00 - 0.20 K/uLMetroHealthBasophils/100 WBC (Bld)0.8 %NINF - 1.9 % MetroHealthEosinophils (Bld) [#/Vol]0.12 10*3/uL0.00 - 0.70 K/uLMetroHealth Eosinophils/100 WBC (Bld)2.5 %0.1 - 4.0 %MetroHealthErythrocyte distribution width (RBC) [Ratio]19.6 %High11.5 - 14.5 %MetroHealthHematocrit (Bld) [Volume fraction]36.3 %Low41.0 - 53.0 %MetroHealthHemoglobin (Bld) [Mass/Vol]12.2 g/dL Low13.9 - 16.3 g/dLMetroHealthInterpretation and review of laboratory results AbnormalMetroHealthLymphocytes (Bld) [#/Vol]1.13 10*3/uL1.00 - 4.80 K/uL MetroHealthLymphocytes/100 WBC (Bld)23.3 %Low24.0 - 44.0 %MetroHealthMCH (RBC) [Entitic mass]34.3 vhFexa62.0 - 34.0 pgMetroHealthMCHC (RBC) [Mass/Vol]33.7 g/dL 32.0 - 35.9 g/dLMetroHealthMCV (RBC) [Entitic vol]102 sAQbkt44 - 100 fL MetroHealthMonocyte distribution width Auto (Bld) [Entitic vol][facility] Monocytes (Bld) [#/Vol]0.61 10*3/uL0.20 - 1.00 K/uLMetroHealthMonocytes/100 WBC (Bld)12.5 %High2.0 - 11.0 %MetroHealthNeutrophils (Bld) [#/Vol]2.95 10*3/uL1.50 - 8.00 K/uLMetroHealthNeutrophils/100 WBC (Bld)60.8 %31.0 - 76.0 %[facility] Platelet mean volume (Bld) [Entitic vol]8.6 fL7.5 - 11.2 fLMetroHealthPlatelets (Bld) [#/Vol]85 10*3/jGFeb083 - 400 K/uLMetroHealthRBC (Bld) [#/Vol]3.57 10*6/uL LowMetroHealthWBC (Bld) [#/Vol]4.9 10*3/uL4.5 - 11.5 K/uLMetroHealthHAPTOGLOBIN on 57-56-1529Cbhalvxjbum [Mass/Vol]mg/dLLow36 - 220 mg/dLMetroHealth Interpretation and review of laboratory resultsAbnormalMetroUniversity Hospitals Samaritan Medical CenterMetroHealth HEPATIC FUNCTION PANELon 36-48-7221Rhabivi [Mass/Vol]3.2 g/dLLow3.4 - 5.1 g/dL MetroHealthALP [Catalytic activity/Vol]284 U/LHighMetroHealthALT [Catalytic activity/Vol]38 U/LMetroHealthAST [Catalytic activity/Vol]70 U/LHighMetroHealth Bilirubin [Mass/Vol]7.5 mg/dLHigh0.1 - 1.5 mg/dLMetroHealthBilirubin.direct [Mass/Vol]1.89 mg/dLHigh0.10 - 0.30 mg/dLMetroHealthProtein [Mass/Vol]7.6 g/dL 6.2 - 8.3 g/dLMetroHealthLDHon 28-26-5722UGX [Catalytic activity/Vol]257 U/LHigh MetroHealthMANUAL DIFF AND MORPHon 53-57-0885Gvulblztzpgr Ql (Bld)Slight MetroHealthCells Counted Total (Bld) [#]MetroHealthDacrocytes LM Ql (Bld)Few MetroHealthOvalocytes LM Ql (Bld)FewMetroHealthSchistocytes LM Ql (Bld)Few MetroHealthTarget cells LM Ql (Bld)FewMetroHealthNo Panel InformationOrdered By: Yany Carrera on 15-53-1888UknjkIohdppBf Panel Informationon 04-21-2023 Interpretation and review of laboratory resultsAbnormalMetroHealthMetroHealth RETICULOCYTE COUNTon 21-29-7766Uwqnvsoy reticulocytes/Total reticulocytes (Bld) 0.46 %0.30 - 0.50MetroHealthInterpretation and review of laboratory results AbnormalMetroHealthReticulocytes (Bld) [#/Vol]0.09 10*3/uLHighMetroHealth Reticulocytes/100 RBC (Bld)2.6 %High0.5 - 1.5 %MetroHealthMetroHealthCHEMISTRY Ordered By: SYSTEM SYSTEM on 50-53-0724Qswuwhq [Mass/Vol]2.5 g/dLLow3.3 - 5.0 gm/dLFTMC RemisolAlbumin/Globulin [Mass ratio]0.5 {ratio}Low1.1 - 2.2FTMC RemisolALP [Catalytic activity/Vol]158 [iU]/dHigh21 - 98 Int._Unit/LFTMC Remisol ALT No additional P-5'-P [Catalytic activity/Vol]50 [iU]/dHigh6 - 46 Int._Unit/L [facility] RemisolAnion gap [Moles/Vol]8 mmol/LNormal6 - 16 mEq/LFTMC RemisolAST [Catalytic activity/Vol]80 [iU]/dHigh5 - 43 Int._Unit/LFTMC RemisolBilirubin [Mass/Vol]8.1 mg/dLHigh0.0 - 1.1 mg/dLFTMC RemisolCalcium [Mass/Vol]8.2 mg/dLLow 8.9 - 11.1 mg/dLFTMC RemisolChloride [Moles/Vol]103 mmol/FItxxsz369 - 111 mmol/L [facility] RemisolCO2 [Moles/Vol]25 mmol/KDgtxrv85 - 31 mmol/LFTMC RemisolCreatinine [Mass/Vol]0.6 mg/dLNormal0.5 - 1.3 mg/dLFT RemisolGFR/1.73 sq M.predicted among non-blacks MDRD (S/P/Bld) [Vol rate/Area]127 mL/min/1.73 u1Hghhpk >=59mL/min/1.73 m2FT Chem SGlobulin (S) [Mass/Vol]4.7 g/dLHigh1.4 - 4.0 gm/dL FT RemisolGlucose [Mass/Vol]146 mg/vOBotlcj79 - 199 mg/dLFT RemisolLactate [Mass/Vol]2.0 mmol/LNormal0.5 - 2.2 mmol/LFTMC RemisolPotassium [Moles/Vol]3.0 mmol/LLow3.5 - 5.3 mmol/LFTMC RemisolProtein [Mass/Vol]7.2 g/dLNormal6.0 - 7.8 gm/dLFTMC RemisolSodium [Moles/Vol]133 mmol/UHfv284 - 145 mmol/LFTMC Remisol Troponin I.cardiac [Mass/Vol]10.30 pg/mLLow15.90 - 38.40 pg/mLFTMC RemisolUrea nitrogen [Mass/Vol]7 mg/dLNormal5 - 21 mg/dLFT RemisolUrea nitrogen/Creatinine [Mass ratio]12 mg/piFmpumo35 - 20FT RemisolCOAGULATIONOrdered By: Mayuri Russell on 32-42-2043kHEK Coag (PPP) [Time]42.0 sHigh25.1 - 36.5 second(s)[facility] Auto CoagINR Coag (PPP) [Relative time]2.6 {INR}Invalid Interpretation CodeFT Auto CoagPT Coag (PPP) [Time]30.4 sHigh9.4 - 12.5 second(s)[facility] Auto Coag HEMATOLOGYOrdered By: SYSTEM SYSTEM on 08-26-3810Wkanjkujb/100 WBC (Bld)0.4 % Normal0.0 - 2.0 %FT HemeAutoSSBasophils/Leukocytes Auto (Bld) [Pure # fraction]0.0 E9/LNormal0.0 - 0.2 E9/LFTMC HemeAutoSSEosinophils/100 WBC (Bld)1.3 %Normal0.0 - 8.0 %[facility] HemeAutoSSEosinophils/Leukocytes Auto (Bld) [Pure # fraction]0.1 E9/LNormal0.0 - 0.5 E9/LFTMC HemeAutoSSLymphocytes/100 WBC (Bld) 14.6 %Kheumc71.0 - 50.0 %[facility] HemeAutoSSLymphocytes/Leukocytes Auto (Bld) [Pure # fraction]1.5 E9/LNormal1.0 - 4.0 E9/LFTMC HemeAutoSSMonocytes/100 WBC (Bld)7.9 %Normal4.0 - 14.0 %[facility] HemeAutoSSMonocytes/Leukocytes Auto (Bld) [Pure # fraction]0.8 E9/LNormal0.2 - 1.0 E9/LFTMC HemeAutoSSNeutrophils/100 WBC (Bld) 75.8 %High36.0 - 75.0 %[facility] HemeAutoSSNeutrophils/Leukocytes Auto (Bld) [Pure # fraction]7.7 E9/LHigh2.0 - 7.5 E9/LFTMC HemeAutoSSHEMATOLOGYOrdered By: Greg Rincon on 92-92-5940Fjmagtbazjk distribution width (RBC) [Ratio]15.4 %High 10.9 - 14.2 %[facility] HemeAutoSSHematocrit (Bld) [Volume fraction]30.1 %Low37.7 - 49.0 %[facility] HemeAutoSSHemoglobin (Bld) [Mass/Vol]10.3 g/dLLow13.5 - 17.5 gm/dL [facility] HemeAutoSSMCH (RBC) [Entitic mass]34.1 xcOztw10.0 - 34.0 pgFTMC HemeAutoSS MCHC (RBC) [Mass/Vol]34.2 g/iBZabrlb81.4 - 36.0 gm/dLFTMC HemeAutoSSMCV (RBC) [Entitic vol]99.4 aLHbrhqz74.0 - 100.0 fLFTMC HemeAutoSSPlatelet mean volume (Bld) [Entitic vol]8.6 fLNormal6.4 - 10.8 fLFAIRFAX [facility] HemeAutoSSPlatelets (Bld) [#/Vol]87.0 E9/PSal074.0 - 500.0 E9/LFTMC HemeAutoSSRBC (Bld) [#/Vol]3.0 E12/L Low4.3 - 5.9 E12/LFTMC HemeAutoSSWBC corrected for nucl RBC Auto (Bld) [#/Vol] 10.1 E9/LNormal4.0 - 11.0 E9/LFTMC HemeAutoSS*SPECIMEN FOR SURGICAL PATHOLOGY Ordered By: Daniella Conde on 44-33-1316Lkmo ReportSurgical Pathology Report Case: [id number] Authorizing Provider: Erica Rock MD Collected: 01/20/20231338 Ordering Location: [facility] Radiology Received: 01/20/20231338 Pathologist: Daniella Conde MD Specimen: Liver biopsy, Transvenous biopsy nontargeted [facility] Work Phone: Clinical InformationMetroHealth Work Phone: Final Diagnosis k3mdtFZtEYGhs7zjXYCuaNTcYgNdSzIqKeCoJvyodLJxFXeosoXqHWjmeTtyDYBhKQSvd0yfg4rivSYr WQAml5cya1NenPGhqUTy NCwuqUJykeMsof59bZP8sF29CT9iHOVqPcK7CIMqqbB0Hbk7HYSnDRZkoXEfP288i8ftd9wqtuCsvDA5 OYSrXQFqJ2JfEV6lUPAs wIJyI47iyGWcGAF3APMhOCAlcMCkDQXcLSD4BAYesFVhG2cgUIGjXB9asiimUSqjYYjjFHGtaQA8XJYs yBJfV4YtPECvLQhcPXOo qlc4XiQgUr9leGWdeNukURhqTRQyIH8wx0jrP8UbfJWjINIwRApaNMGfZlJuECGOKpAxLUu7HHDnGUWn EC6jlsCtyZnbifGgmM8y q9fqESTvzgonIGfkGGZtd8yiX3LsfYAtGZHhLOFNtEDreJ4twNBuLISbSYHPt03sXP08IUIbKIXmlBCc yKBnZDV4URhaWVCoi9Al xUOuMGXabjkcPHLmZtq6cBPCt17aTN28TyuvBJl2tPChHVJgGATcoUzvgT7wbIGcNlI4wMVbO9kodbpl t0pqPLszRZ5dbYDlnlso KK67BYhip3XiqU1tjCInoOr4DJsfMXFzzIDlGLS8XL1rZYTef8ZbK3LoBJSJd9dgqjSeOSwjkWlxlVng IHBhdGllbnQncyBoaXN0 y5I9YXK1xTSdDhdgPSreY1PbEDWzUGEavOOuwWgftENci8s6jTJxbUXshH2xeQQqG2xanenff8nuQvTt U6PsYWWej2gtWKUyqcCk nCMlzxcmQZUuxm79wB6gsGBpbXBwSJDgc4PchGiaERfzgpLpOXYybnPpX4c5xZCcqCVrOSnhdfBwMXQh TuJtzblrABI2x9ympWOr AOOppUOpEwPvLBDeZLJib9qxXMAzvIEyGySeBeDjNrFwFcoxrMAeRQGhLaWcm2rie518uFLmf4miRTRh UxA5aDAgJMRmaYNrG353 QSFsHZvqt0kcz3PzPTDcqFEzm9P9KEXIyigngUp2rDxcF12rh7V7DdrcQ0rrOVZdXZJvL5ZoCN1dPKYy Xap8QSQ2UQL8UHYnKGx0 QXhgIOOdZHKdLvl4SNr5RNujzjNuVUntvkGawiPjHrw1GUTbX327CRC4jEcam6zpIKL5KXIrBYDqRgKn Db8bxAErR945LUWkUKWA SYScnXc9CPRahdSsfmVddEEJv200A679z1opZXTahcDzlVlKytmuz8kiA475YHYmwCEclaPzFhBkXOLz uKPkmJB3LDSnQR7bsikn UFewZAdlXQLltvD2UKEiuJCzH8LxVUGhMD6hzkwsPMZ9OXnkMSRtPBC3YwPbYDQdg0Lpmpf3AjVdnj6a ha64XYY6b6JnmGpbNMA4 ABO1AmWuPj1vpZFdCCXuRJ6dYiTqvNTtPMDggf52xRlaITdnycRqkE2rGlJyBRVneAHkSPNgZK0xvYVy DUFucR4snzvvSATmNrMx xvvcHGDdjSbodsVoSv9izLceDDN0XZqiC3nccP9kQpG1NUlyF7sikX2wZWs4BXnqhBR4VZUqoT1aID9v gvcen5evEJdrGEnrOOLh goL3dkC0ERLuiLHeM8EwmL3oXOYnVR6hdmkde4qgYHF7RFkkAWImPDC9XrFyWWYmd1Ilqji1MwQwp9Mz gKRnGOvxL18dg859YLZr jrAlQ8xgoYDsdqdbwDRpepymXQlrdhH6RKQlNGLkAZewTNBvNRVxBhWapPAxCiCcGjGvkWpwcLzoFXpi AaHqIZUgNUjxO9kmXkWd RjTlZqmlVIFmyLnwfU7sSkKwWwInIHrmYT1dBCJzJ8itiVNxYUWoEWWhY8ijTwDyqJ0tdOzoYBedjeCt XRInDTH0ss9okARcxWc9 TILvT30zOICBfYVvNgktG7JhlMQwWYA9vBSdJI3YUB0uUBA1RuXpWyKqNvEaSVXrzsssKEWtbKxtgD5x CvBsGjBuBLbeQP0fFDBa N6eoxDNnMBOaFDRmV0elWtTcaG8ciFhyWSyuUpWxKbKrUJlsWMfwZ9WbqSgtpEY5vXL2UOggvKMad33j ILuzkNPzi84tpXX4GVHx nYjiNNUoBDjit8L4wLViJVLnjMDdnOrpjrSyRzP3kHIrDZPzirSxr3WfI6ygDW4cndouVG2cOSteruUk cmVuZGVyZWQgdGhlIGZp lhRyVXCrCLdhm6KsbjpfvobuKZjbcYLbebaaGVqhbbOvOJkcaybeLEBoQHhxY0lkKbNzKVZhgNqvBYso v2HcCGTxHDXgVzLtaLSpHGWcmj62ChcbjVloduh Work Phone: [employer] h5terNTaAWDtwSXcKQPlAwhithHpSORciUSmS6HurgpxNTkeWU4oRT7jwGfjmCObjERxELRqQgWga2kw q633oTNsj7iqSKFAkbjc jFo8kXmyK62hq4A7KjrbH82lkMMcTEP7PJGzDNQcuZHcXTCuDXR1DXJwaMEtE0omXMToAB3nmtujUWhv RTqgJROpbIG6NAOttBKh T0YtXGZiGOtlGZFesme7KkMuTr1rnFFkzQiuYAewCCQhGZXaSJszGRBiPtFdYY8pUPFxmDQnb6r8dF3g ZWQgYXMgImxpdmVyIGJp r2RqyTFlEZOjouUZcRRpv8FcE5ofQF8nsTHttnOgPQk4YCSkUcJcz3sowK9yTTUmpX1sxIZvU07yaKGp bmVyLCBsYWJlbGVkIHdp lVetiZN7qKPbwIlcDR8woIXmHD6eTCjzIFxnziVvh0MgRH19aYStxxgxJA4sPUH2obkeU5CxVD92lITc vh9mNKOis8JbZCBgLGHt eJYqgxByoW7ac5wkOlIPsQKwk1QkO5tyIM8fK82pr1cnzKWih1FcWfN3DB5hwbBiOShiEFZgxiKpAiaj hTKfMGQyxXQsw5UxoR4f FQQpZOTlrCYvzzRlBK03MZWfAPdtBCzofhf1rFRvdlUgsEuoSYFjOXUibTHlggHzxXTfCITlre9uZLha IHNwZWNpbWVuIGlzIHN1 Ou8ggBAvLVSqcrH3x6KoXXvrOT8rSBXjNBAxTJE1MG8qPrDkGUPwblakVXDrw4RanDDwmR== [facility] Work Phone: [employer] i2hkjBHtDYZfuKSgKZXfUWkkmuDaFODqdNJqN7PhjbdwQPxfEY9bFX5fdHoggWXxwVXcONHwMdArl8wn h363zQSuq3rdHWQCejtp hIs2gCfyK00it1O8QyhxL00yzIEhHGP7TDGpOPOroVVbCRQvBMR7QSCqcYLzZ6btHUOrLA5ruexmUBuf BYvbQQCieFQ8FTUdeKGe Z9LlGBBqAVspWVSucxi9WnSuLu5jnDHevItgBWdmPYKlXQUtSQeaRCMoKxBsJN3oWZxqnEMnkTGpnTX0 cA7bSO1hRKSjkvqiUDKq Wvy8mLRZwGMnjvb4sFFsSznoTZSdsZBsATQthIJtag0bVEfyIFNlTPrfQ8mrwXzqsUWiP7qqyerpj8ch SZOrxxtiMQCLGq8IUzSq LfCfBfYxPMVruvIcIy0yQVrtjIIlC1n4p9TfOWNumKAlX2yuXnYnWIZulMVeIFFsMNAmreqnHLZtBGfu B3DwLGJjTFSywz4qZLDwxsiwHSZoDPJmto1=IngeuWymzdq Work Phone: [facility] Work Phone: No Panel Informationon [id number]: XA TRANSJUGULAR LIVER BIOPSY (CHRISTIANO), XA HEPATIC VENOGRAM W/ HEMODYN (CHRISTIANO) 01/20/2023 10:46 AM CLINICAL HISTORY: Rad Procedure required: = Transjugular liver biopsy with portal pressure measurements,Suspected liver fibrosis ASSOCIATED DIAGNOSIS: Alcoholic fatty liver Hyperbilirubinemia Alcoholic hepatitis, unspecified whether ascites present ORDERING PROVIDER: HALEY GARY TECHNOLOGISTS NOTE: Right atrium: 14, pre hepatic: 18, wedged hepatic: 32. Moderate sedation intraservice time 7177-3902 FLUOROSCOPIST: ERICA ROCK FLUORO TIME: 41.6 Minutes [...] the right neck was prepped and draped inusual aseptic manner. Lidocaine was administered for local anesthesia. Antegrade puncture of the right internal jugular vein was performed with a 21-gauge needle under ultrasound guidance and the vein was cannulated with a microaccess catheter using modified Seldinger technique. A 0.035 inch Amplatz wire was then advanced into the inferior vena cava through the microaccess catheter under fluoroscopic guidance. A 10 [place] curved tip renal vein sheath was then advanced over the wire into the right atrium. The obturator was removed and a 5 [place] MPB catheter was used to select the right hepatic vein with the assistance of a Glidewire. The MPB catheter was exchanged for a Wilmer catheter and hepatic venous pressures measured. The catheter was inflated and hepatic venous wedge pressures measured. Thecatheter was then deflated and withdrawn into the right atrium; right atrial pressures were also measured. The right hepatic vein was again selected with a 5 [place] MPB catheter which was then exchanged over an Amplatz wire for the 10 [place] venous sheath. This was repeated several times for attempted transvenous liver biopsy through the right hepatic vein; however, the 10 [place] sheath withdrew during attempted advancement of the biopsy catheter. The 10 [place] venous sheath was then withdrawn into the intrahepatic IVC. The middle hepatic vein was selected with the same 5 [place] catheter which was then exchanged over an Amplatz wire for the 10 [place] venous sheath. The 10 [place] transvenous biopsycatheter was then advanced into the middle hepatic venous sheath and deployed twice for liver biopsy. The transvenous biopsy catheter and a 10 [place] venous sheath were removed. Satisfactory hemostasiswas obtained with manual compression of the right [...] vein = 18 mmHg; hepatic venous wedge =32 mmHg IMPRESSION: 1. Technically successful and uncomplicated transjugular liver biopsy. 2. Elevated right atrial pressures and increased portosystemic gradient. MACRO: None RADIOLOGYPaErica perera MD - 01/21/2023 EXAMINATION: XA TRANSJUGULAR LIVER [...] wedged hepatic: 32. Moderate sedation intraservice time 6415-0411 FLUOROSCOPIST: ERICA ROCK FLUORO TIME: 41.6 Minutes [...] the right neck was prepped and draped inusual aseptic manner. Lidocaine was administered for local anesthesia. Antegrade puncture of the right internal jugular vein was performed with a 21-gauge needle under ultrasound guidance and the vein was cannulated with a microaccess catheter using modified Seldinger technique. A 0.035 inch Amplatz wire was then advanced into the inferior vena cava through the microaccess catheter under fluoroscopic guidance. A 10 [place] curved tip renal vein sheath was then advanced over the wire into the right atrium. The obturator was removed and a 5 [place] MPB catheter was used to select the right hepatic vein with the assistance of a Glidewire. The MPB catheter was exchanged for a Wilmer catheter and hepatic venous pressures measured. The catheter was inflated and hepatic venous wedge pressures measured. Thecatheter was then deflated and withdrawn into the right atrium; right atrial pressures were also measured. The right hepatic vein was again selected with a 5 [place] MPB catheter which was then exchanged over an Amplatz wire for the 10 [place] venous sheath. This was repeated several times for attempted transvenous liver biopsy through the right hepatic vein; however, the 10 [place] sheath withdrew during attempted advancement of the biopsy catheter. The 10 [place] venous sheath was then withdrawn into the intrahepatic IVC. The middle hepatic vein was selected with the same 5 [place] catheter which was then exchanged over an Amplatz wire for the 10 [place] venous sheath. The 10 [place] transvenous biopsycatheter was then advanced into the middle hepatic venous sheath and deployed twice for liver biopsy. The transvenous biopsy catheter and a 10 [place] venous sheath were removed. Satisfactory hemostasiswas obtained with manual compression of the right [...] vein = 18 mmHg; hepatic venous wedge =32 mmHg IMPRESSION: 1. Technically successful and uncomplicated transjugular liver biopsy. 2. Elevated right atrial pressures and increased portosystemic gradient. MACRO: None [facility]Met[facility]No Panel Informationon [id number] Study observation (narrative)MetroHealthPROTHROMBIN TIME AND INRon 94-29-6424ZFD Coag (PPP) [Relative time]2.49 {INR}High0.90 - 1.10MetroHealthInterpretation and review of laboratory resultsAbnormalMetroHealthPT Coag (PPP) [Time]27.9 sHigh [facility]HealthMetroHealthBasic metabolic 2000 panelon 56-11-0611Oylcl gap [Moles/Vol]12 mmol/L10 - 20MetroHealthCalcium [Mass/Vol]8.3 mg/dLLow8.4 - 10.4 mg/dLMetroHealthChloride [Moles/Vol]105 mmol/L97 - 111 mmol/LMetroHealthCO2 [Moles/Vol]26 mmol/L21 - 30 mmol/LMetroHealthCreatinine [Mass/Vol]0.60 mg/dLLow 0.80 - 1.30 mg/dLMetroHealthGFR/1.73 sq M.predicted MDRD (S/P/Bld) [Vol rate/Area]127 mL/min/{1.73_m2}- PINFMetroHealthComment on above:202 CKD EPI Equation using Creatinine without Race Comment: Estimated glomerular filtration rate (eGFR) is calculated without a race coefficient. Values should be interpreted in the context of the patient's full clinical presentation. Reference: 1. Peters C, Bacurtisja M, Linden DC, et al.. A Unifying Approach for GFR Estimation: Recommendations of the NKF-ASN Task Force on Reassessing the Inclusion of Race in Diagnosing Kidney Disease. AmericanJournal of Kidney Diseases 202;79(2):268-88.e1. 2. N Engl J Med 1 Vol. 385 Issue 19 Pages 4789-4718 Glucose [Mass/Vol]82 mg/dL68 - 110 mg/dLMetroHealthPotassium [Moles/Vol]3.5 mmol/L3.3 - 5.3 mmol/LMetroHealthSodium [Moles/Vol]139 mmol/L135 - 148 mmol/L MetroHealthUrea nitrogen [Mass/Vol]4 mg/dLLow8 - 22 mg/dLMetroHealthC-PEPTIDE, SERUMon 01-12-2023 peptide [Mass/Vol]3.52 ng/mL0.81 - 3.85 ng/mLMetroHealth Interpretation and review of laboratory resultsNormalMetroHealthMetroHealthCBC panel Auto (Bld)on 43-81-4571Bfutmssgfnv distribution width (RBC) [Ratio]15.7 % High11.5 - 14.5 %MetroHealthHematocrit (Bld) [Volume fraction]35.4 %Low41.0 - 53.0 %MetroHealthHemoglobin (Bld) [Mass/Vol]12.1 g/dLLow13.9 - 16.3 g/dL MetroHealthInterpretation and review of laboratory resultsAbnormalMetroHealthMCH (RBC) [Entitic mass]36.7 xaNvbv18.0 - 34.0 pgMetroHealthMCHC (RBC) [Mass/Vol] 34.3 g/dL32.0 - 35.9 g/dLMetroHealthMCV (RBC) [Entitic vol]107 pTOkvy00 - 100 fL MetroHealthPlatelet mean volume (Bld) [Entitic vol]8.3 fL7.5 - 11.2 fL MetroHealthPlatelets (Bld) [#/Vol]110 10*3/hWHaz327 - 400 K/uLMetroHealthRBC (Bld) [#/Vol]3.31 10*6/uLLowMetroHealthWBC (Bld) [#/Vol]6.6 10*3/uL4.5 - 11.5 K/uLMetroHealthMetroHealthDiabetes tracking panelOrdered By: Moi Christianson on 29-01-5438Tunccql glucose Estimated from glycated hemoglobin (Bld) [Mass/Vol]82 mg/zQRqallTizbtfYyX3l (Bld) [Mass fraction]4.5 %4.0 - 5.6 %[facility] MetroHealthHEPATIC FUNCTION PANELon 51-75-9575Bamqhqn [Mass/Vol]3.2 g/dLLow3.4 - 5.1 g/dLMetroHealthALP [Catalytic activity/Vol]336 U/LHighMetroHealthALT [Catalytic activity/Vol]43 U/LHighMetroHealthAST [Catalytic activity/Vol]73 U/L HighMetroHealthBilirubin [Mass/Vol]8.2 mg/dLHigh0.1 - 1.5 mg/dLMetroHealth Bilirubin.direct [Mass/Vol]2.28 mg/dLHigh0.10 - 0.30 mg/dLMetroHealthProtein [Mass/Vol]7.9 g/dL6.2 - 8.3 g/dLMetroHealthINSULINon 20-95-1378Kizdlpt Free Qn 38.9HighMetroHealthInterpretation and review of laboratory resultsAbnormal [facility]HealthMet[facility]HealthNo Panel Informationon 63-60-4841Mahahhpdvsdxqw and review of laboratory resultsAbnormalMetroHealthMetroHealthPROTHROMBIN TIME AND INRon 34-23-5112JOS Coag (PPP) [Relative time]1.87 {INR}High0.90 - 1.10[facility] Interpretation and review of laboratory resultsAbnormalMetroHealthPT Coag (PPP) [Time]21.0 sHighMetroHealthMetroHealthALPHA FETOPROTEIN TUMOR MARKERon 08-99-1339UTG1.4 ng/mLNINF - 8.4 ng/mLMetroHealthInterpretation and review of laboratory resultsNormalMetroHealthMetroHealthBasic metabolic 2000 panelon 74-63-8088Npqtg gap [Moles/Vol]10 mmol/L10 - 20MetroHealthCalcium [Mass/Vol]8.7 mg/dL8.4 - 10.4 mg/dLMetroHealthChloride [Moles/Vol]102 mmol/L97 - 111 mmol/L MetroHealthCO2 [Moles/Vol]30 mmol/L21 - 30 mmol/LMetroHealthCreatinine [Mass/Vol]0.50 mg/dLLow0.80 - 1.30 mg/dLMetroHealthGFR/1.73 sq M.predicted MDRD (S/P/Bld) [Vol rate/Area]134 mL/min/{1.73_m2}- PINFMetroHealthComment on above: 202 CKD EPI Equation using Creatinine without Race [...] Inclusion of Race in Diagnosing Kidney Disease. AmericanJournal of Kidney Diseases 202;79(2):268-88.e1. 2. N Engl J Med 2020 Vol. 385 Issue 19 Pages 7132-7345 Glucose [Mass/Vol]70 mg/dL68 - 110 mg/dLMetroHealthPotassium [Moles/Vol]3.1 mmol/LLow3.3 - 5.3 mmol/LMetroHealthSodium [Moles/Vol]139 mmol/L135 - 148 mmol/L MetroHealthUrea nitrogen [Mass/Vol]5 mg/dLLow8 - 22 mg/dLMetroHealthCBC WITH DIFFERENTIALon 59-86-5846Mafzavhbg (Bld) [#/Vol]0.04 10*3/uL0.00 - 0.20 K/uL MetroHealthBasophils/100 WBC (Bld)0.6 %NINF - 1.9 %MetroHealthEosinophils (Bld) [#/Vol]0.21 10*3/uL0.00 - 0.70 K/uLMetroHealthEosinophils/100 WBC (Bld)3.6 %0.1 - 4.0 %MetroHealthErythrocyte distribution width (RBC) [Ratio]15.8 %High11.5 - 14.5 %MetroHealthHematocrit (Bld) [Volume fraction]29.4 %Low41.0 - 53.0 % MetroHealthHemoglobin (Bld) [Mass/Vol]10.4 g/dLLow13.9 - 16.3 g/dLMetroHealth Lymphocytes (Bld) [#/Vol]1.21 10*3/uL1.00 - 4.80 K/uLMetroHealthLymphocytes/100 WBC (Bld)21.2 %Low24.0 - 44.0 %MetroHealthMCH (RBC) [Entitic mass]38.5 pgHigh 26.0 - 34.0 pgMetroHealthMCHC (RBC) [Mass/Vol]35.3 g/dL32.0 - 35.9 g/dL MetroHealthMCV (RBC) [Entitic vol]109 pSHqdr19 - 100 fLMetroHealthMonocyte distribution width Auto (Bld) [Entitic vol]MetroHealthMonocytes (Bld) [#/Vol] 0.65 10*3/uL0.20 - 1.00 K/uLMetroHealthMonocytes/100 WBC (Bld)11.4 %High2.0 - 11.0 %MetroHealthNeutrophils (Bld) [#/Vol]3.63 10*3/uL1.50 - 8.00 K/uL MetroHealthNeutrophils/100 WBC (Bld)63.2 %31.0 - 76.0 %MetroHealthPlatelet mean volume (Bld) [Entitic vol]8.2 fL7.5 - 11.2 fLMetroHealthPlatelets (Bld) [#/Vol] 82 10*3/yNFlg155 - 400 K/uLMetroHealthRBC (Bld) [#/Vol]2.69 10*6/uLLow MetroHealthWBC (Bld) [#/Vol]5.7 10*3/uL4.5 - 11.5 K/uLMetroHealthDIRECT ANTIGLOBULIN TESTon 45-74-3243Cqkmii antiglobulin test.poly specific reagent Ql (RBC)NegativeMetroHealthMetroHealthHAPTOGLOBINon 29-13-7201Wyumzggrsxb [Mass/Vol]mg/dLLow36 - 220 mg/dLMetroHealthInterpretation and review of laboratory resultsAbnormalMetroHealthMetroHealthHEPATIC FUNCTION PANELon 96-82-1608Wfnvmbp [Mass/Vol]2.9 g/dLLow3.4 - 5.1 g/dLMetroHealthALP [Catalytic activity/Vol]386 U/LHighMetroHealthALT [Catalytic activity/Vol]36 U/LMetroHealth AST [Catalytic activity/Vol]68 U/LHighMetroHealthBilirubin [Mass/Vol]6.9 mg/dL High0.1 - 1.5 mg/dLMetroHealthBilirubin.direct [Mass/Vol]1.88 mg/dLHigh0.10 - 0.30 mg/dLMetroHealthProtein [Mass/Vol]7.0 g/dL6.2 - 8.3 g/dLMetroHealthLDHon 98-41-9214ZWA [Catalytic activity/Vol]255 U/LHighMetroHealthNo Panel Information on 50-45-2326Oxiwoevfabckve and review of laboratory resultsAbnormalMetroHealth MetroHealthInterpretation and review of laboratory resultsAbnormalMetroHealth MetroHealthPROTHROMBIN TIME AND INRon 55-09-0666ASU Coag (PPP) [Relative time] 1.71 {INR}High0.90 - 1.10MetroHealthInterpretation and review of laboratory resultsAbnormalMetroHealthPT Coag (PPP) [Time]19.2 sHighMetroHealthMetroHealth RETICULOCYTE COUNTon 09-35-6995Hfxmnlzd reticulocytes/Total reticulocytes (Bld) 0.45 %0.30 - 0.50MetroHealthReticulocytes (Bld) [#/Vol]0.09 10*3/uLHigh MetroHealthReticulocytes/100 RBC (Bld)3.3 %High0.5 - 1.5 %MetroHealthSMOOTH MUSC ATB SCRN & TITROrdered By: Juan Luis Ferguson on 94-11-8365Gtpkcfwqpuesjh and review of laboratory resultsNormalMetroHealth Work Phone: Smooth muscle Ab Ql (S)NegativeNegativeMetroHealth Work Phone: Negative SMA test does not exclude the possibility of chronic liver disease. . I certify that I personally conducted the diagnostic evaluation of the above specimen(s) and have rendered the final diagnosis(es). [facility] Work Phone: [facility] Work Phone: Basic metabolic 2000 panelon 74-08-8232Hoina gap [Moles/Vol]14 mmol/L10 - 20MetroHealthCalcium [Mass/Vol]8.4 mg/dL8.4 - 10.4 mg/dLMetroHealthChloride [Moles/Vol]101 mmol/L97 - 111 mmol/LMetroHealthCO2 [Moles/Vol]26 mmol/L21 - 30 mmol/LMetroHealthCreatinine [Mass/Vol]0.55 mg/dLLow 0.80 - 1.30 mg/dLMetroHealthGFR/1.73 sq M.predicted MDRD (S/P/Bld) [Vol rate/Area]131 mL/min/{1.73_m2}- PINFMetroHealthComment on above:2020 CKD EPI Equation using Creatinine without Race [...] Inclusion of Race in Diagnosing Kidney Disease. AmericanJournal of Kidney Diseases 202;79(2):268-88.e1. 2. N Engl J Med 1 Vol. 385 Issue 19 Pages 6515-1399 Glucose [Mass/Vol]55 mg/dLLow68 - 110 mg/dLMetroHealthPotassium [Moles/Vol]3.3 mmol/L3.3 - 5.3 mmol/LMetroHealthSodium [Moles/Vol]138 mmol/L135 - 148 mmol/L MetroHealthUrea nitrogen [Mass/Vol]5 mg/dLLow8 - 22 mg/dLMetroHealthCBC WITH DIFFERENTIALon 01-24-4921Gifrqkhcl (Bld) [#/Vol]0.06 10*3/uL0.00 - 0.20 K/uL [facility]HealthBasophils/100 WBC (Bld)1.0 %NINF - 1.9 %MetroHealthEosinophils (Bld) [#/Vol]0.16 10*3/uL0.00 - 0.70 K/uLMetroHealthEosinophils/100 WBC (Bld)2.8 %0.1 - 4.0 %MetroHealthErythrocyte distribution width (RBC) [Ratio]15.8 %High11.5 - 14.5 %MetroHealthHematocrit (Bld) [Volume fraction]33.5 %Low41.0 - 53.0 % MetroHealthHemoglobin (Bld) [Mass/Vol]11.6 g/dLLow13.9 - 16.3 g/dLMetroHealth Interpretation and review of laboratory resultsAbnormalMetroHealthLymphocytes (Bld) [#/Vol]1.65 10*3/uL1.00 - 4.80 K/uLMetroHealthLymphocytes/100 WBC (Bld) 28.9 %24.0 - 44.0 %MetroHealthMCH (RBC) [Entitic mass]37.2 csPjei57.0 - 34.0 pg MetroHealthMCHC (RBC) [Mass/Vol]34.5 g/dL32.0 - 35.9 g/dLMetroHealthMCV (RBC) [Entitic vol]108 bPJrex14 - 100 fLMetroHealthMonocyte distribution width Auto (Bld) [Entitic vol]MetroHealthMonocytes (Bld) [#/Vol]0.76 10*3/uL0.20 - 1.00 K/uLMetroHealthMonocytes/100 WBC (Bld)13.3 %High2.0 - 11.0 %[facility] Neutrophils (Bld) [#/Vol]3.07 10*3/uL1.50 - 8.00 K/uLMetroHealthNeutrophils/100 WBC (Bld)54.0 %31.0 - 76.0 %MetroHealthPlatelet mean volume (Bld) [Entitic vol] 8.1 fL7.5 - 11.2 fLMetroHealthPlatelets (Bld) [#/Vol]131 10*3/pITkz755 - 400 K/uLMetroHealthRBC (Bld) [#/Vol]3.11 10*6/uLLowMetroHealthWBC (Bld) [#/Vol]5.7 10*3/uL4.5 - 11.5 K/uLMetroHealthMetroHealthLaboratory - Chemistry and Chemistry - challengeon 72-28-4443Luatzyuv [Mass/Vol]346.0 ng/bPPisp05.5 - 300.0 ng/mL MetroHealthAlbumin [Mass/Vol]3.0 g/dLLow3.4 - 5.1 g/dLMetroHealthALP [Catalytic activity/Vol]389 U/LHighMetroHealthALT [Catalytic activity/Vol]56 U/LHigh [facility]HealthAST [Catalytic activity/Vol]103 U/LHighMetroHealthBilirubin [Mass/Vol]7.7 mg/dLHigh0.1 - 1.5 mg/dLMetroHealthBilirubin.direct [Mass/Vol]2.20 mg/dLHigh0.10 - 0.30 mg/dLMetroHealthIron [Mass/Vol]237 ug/dHHjea87 - 160 ug/dL MetroHealthIron binding capacity [Mass/Vol]248 ug/vSNph569 - 410 ug/mL MetroHealthIron saturation [Mass fraction]96 %High20 - 55 %[facility]HealthProtein [Mass/Vol]7.2 g/dL6.2 - 8.3 g/dLMetroHealthTransferrin [Mass/Vol]177 mg/sWFpy904 - 375 mg/dLMetroHealthLaboratory - Serology - non-microon 12-49-3949Tmcwkz complex.IgG [Mass/Vol]1995 mg/wZAubw497 - 1632 mg/dLMetroHealthNo Panel Informationon 37-34-4816Rrkyvldwgfpueb and review of laboratory resultsAbnormal MetroHealthMetroHealthInterpretation and review of laboratory resultsAbnormal MetroHealthMetroHealthInterpretation and review of laboratory resultsAbnormal MetroHealthMetroHealthXR Knee - right Viewson 58-91-6395HZLFXJYVLXA: XR KNEE RT ANY 4 OR MORE VIEWSPRO/RT 08/15/2022 02:28 PM CLINICAL HISTORY: Reason for Exam: knee pain, limited gait ASSOCIATED DIAGNOSIS: ORDERING PROVIDER: DANTE FRENCH TECHNYADIRA NOTE: COMPARISON: None FINDINGS: No acute [...] and proximal leg, with focal swelling over thecalcaneus anteriorly. Right knee MACRO: None Colby Marshall MD - 08/15/2022 EXAMINATION: XR KNEE RT ANY 4 OR MORE VIEWSPRO/RT 08/15/2022 02:28 PM CLINICAL HISTORY: Reason for Exam: knee pain, limited gait ASSOCIATED DIAGNOSIS: ORDERING PROVIDER: DANTE FRENCH TECHNYADIRA NOTE: COMPARISON: None FINDINGS: No acute [...] and proximal leg, with focal swelling over thecalcaneus anteriorly. Right knee MACRO: None MetroHealthRadiology Study observation (narrative)[facility]HealthXR Knee - right ViewsOrdered By: Colby Mcintosh on 90-89-5986AfvmxPntufd Work Phone: Basic metabolic 2000 panelon 30-91-3987Dmcyb gap [Moles/Vol]14 mmol/L10 - 20MetroHealthCalcium [Mass/Vol]7.9 mg/dLLow8.4 - 10.4 mg/dLMetroHealthChloride [Moles/Vol]97 mmol/L97 - 111 mmol/LMetroHealthCO2 [Moles/Vol]24 mmol/L21 - 30 mmol/LMetroHealthCreatinine [Mass/Vol]0.55 mg/dLLow 0.80 - 1.30 mg/dLMetroHealthGFR/1.73 sq M.predicted MDRD (S/P/Bld) [Vol rate/Area]131 mL/min/{1.73_m2}- PINFMetroHealthComment on above:2020 CKD EPI Equation using Creatinine without Race [...] Inclusion of Race in Diagnosing Kidney Disease. AmericanJournal of Kidney Diseases 202;79(2):268-88.e1. 2. N Engl J Med 1 Vol. 385 Issue 19 Pages 5061-2319 Glucose [Mass/Vol]89 mg/dL68 - 110 mg/dLMetroHealthPotassium [Moles/Vol]3.0 mmol/LLow3.3 - 5.3 mmol/LMetroHealthSodium [Moles/Vol]132 mmol/SJmo419 - 148 mmol/LMetroHealthUrea nitrogen [Mass/Vol]5 mg/dLLow8 - 22 mg/dLMetroHealth Laboratory - Chemistry and Chemistry - challengeon 59-73-9962Xsxcw [Mass/Vol]1.9 mg/dLLow2.0 - 7.3 mg/dLMetroHealthAlbumin [Mass/Vol]2.9 g/dLLow3.4 - 5.1 g/dL [facility]HealthALP [Catalytic activity/Vol]245 U/LHighMetroHealthALT [Catalytic activity/Vol]47 U/LHighMetroHealthAST [Catalytic activity/Vol]96 U/LHigh MetroHealthBilirubin [Mass/Vol]10.6 mg/dLHigh0.1 - 1.5 mg/dLMetroHealthComment on above:Elevated bilirubin may falsely lower creatinineBilirubin.direct [Mass/Vol]2.83 mg/dLHigh0.10 - 0.30 mg/dLMetroHealthLDH [Catalytic activity/Vol] 260 U/LHighMetroHealthProtein [Mass/Vol]6.4 g/dL6.2 - 8.3 g/dLMetroHealth Creatinine (U) [Mass/Vol]57 mg/dL10 - 300 mg/dLMetroHealthProtein/Creatinine (U) [Mass ratio]123 mg/gNINF - 164 mg/gMetroHealthBilirubin Ql (U)PositiveAbnormal NegativeMetroHealthKetones Ql (U)NegativeNegative mg/dLMetroHealthpH (U)7.0 [pH] 5.0 - 8.0MetroHealthSpecific gravity (U) [Rel density]Low1.005 - 1.030 MetroHealthUrobilinogen Qn (U)>=8.6Aqjuiqba5.2 - 1.0 mg/dLMetroHealthLaboratory - Hematology and Cell countson 15-93-3314Hvfrj Counted Total (Bld) [#]100 {cells}MetroHealthEosinophils (Bld) [#/Vol]0.09 10*3/uL0.00 - 0.70 K/uL MetroHealthEosinophils/100 WBC (Bld)1.0 %0.1 - 4.0 %MetroHealthLymphocytes (Bld) [#/Vol]1.29 10*3/uL1.00 - 4.80 K/uLMetroHealthLymphocytes/100 WBC (Bld)14.0 % Low24.0 - 44.0 %MetroHealthMacrocytes Ql (Bld)SlightMetroHealthMonocytes (Bld) [#/Vol]1.38 10*3/uLHigh0.20 - 1.00 K/uLMetroHealthMonocytes/100 WBC (Bld)15.0 % High2.0 - 11.0 %MetroHealthNeutrophils (Bld) [#/Vol]6.44 10*3/uL1.50 - 8.00 K/uL MetroHealthNeutrophils/100 WBC (Bld)70.0 %31.0 - 76.0 %MetroHealthHaptoglobin [Mass/Vol]mg/dLLow36 - 220 mg/dLMetroHealthHemoglobin Ql (U)NegativeNegative [facility]HealthLaboratory - Hematology and Cell countsOrdered By: Tayla Strickland on 99-38-9133Lrisuqvbuzg distribution width (RBC) [Ratio]14.8 %High11.5 - 14.5 %MetroHealthHematocrit (Bld) [Volume fraction]31.8 %Low41.0 - 53.0 %[facility] Hemoglobin (Bld) [Mass/Vol]11.6 g/dLLow13.9 - 16.3 g/dLMetroHealthMCH (RBC) [Entitic mass]38.3 nhOcqu13.0 - 34.0 pgMetroHealthMCHC (RBC) [Mass/Vol]36.5 g/dL High32.0 - 35.9 g/dLMetroHealthMCV (RBC) [Entitic vol]105 mHNorw25 - 100 fL MetroHealthMonocyte distribution width Auto (Bld) [Entitic vol][facility] Nucleated RBC (Bld) [#/Vol]0.01 10*3/uLMetroHealthPlatelet mean volume (Bld) [Entitic vol]8.4 fL7.5 - 11.2 fLMetroHealthPlatelets (Bld) [#/Vol]100 10*3/uLLow 150 - 400 K/uLMetroHealthRBC (Bld) [#/Vol]3.03 10*6/uLLowMetroHealthWBC (Bld) [#/Vol]9.2 10*3/uL4.5 - 11.5 K/uLMetroHealthLaboratory - Specimen informationon 53-69-6357Qbvbypvcfr (U)ClearClearMetroHealthColor (U)Light YellowYellow [facility]HealthLaboratory - Urinalysison 37-35-0587Qicujpu (U) [Mass/Vol]7 mg/dLNINF - 100 mg/dLMetroHealthBacteria LM.HPF (Urine sed) [#/Area]Few/HPFMetroHealth Glucose Auto test strip (U) [Mass/Vol]NegativeNegative mg/dLMetroHealthLeukocyte esterase Test strip Ql (U)ModerateAbnormalNegative Svitlana/uLMetroHealthNitrite Ql (U)NegativeNegativeMetroHealthProtein (U) [Mass/Vol]NegativeNegative mg/dL MetroHealthWBC (U) [#/Vol]0-2MetroHealthWBC LM.HPF (Urine sed) [#/Area]6-10 AbnormalMetroHealthNo Panel InformationOrdered By: Tayla Strickland on 50-18-9038Wahbitwslymaso and review of laboratory resultsAbnormalMetroHealth MetroHealthNo Panel Informationon 98-02-0120Cmawigyfjgfjqw and review of laboratory resultsAbnormalMetroHealthMetroHealthInterpretation and review of laboratory resultsAbnormalMetroHealthMetroHealthInterpretation and review of laboratory resultsNormalMetroHealthMetroHealthInterpretation and review of laboratory resultsAbnormalMetroHealthA negative leukocyte esterase AND negative nitrite test [...] (positive predictive value for UTI around 50%) MetroHealthMetroHealthUS.doppler Lower extremity vein - righton 08-14-2022 EXAMINATION: US LEG RIGHT [...] direction of flow, a normal waveform, and intactcolor Doppler flow. Common femoral vein: Compressible with appropriate direction of flow, a normal waveform, and intactcolor Doppler flow. Contralateral common femoral vein: Appropriate [...] lower extremity deep venous thrombosis identified. MACRO: NoneRADIOLOGYEnrique Basurto MD - 08/14/2022 EXAMINATION: US LEG [...] direction of flow, a normal waveform, and intactcolor Doppler flow. Common femoral vein: Compressible with appropriate direction of flow, a normal waveform, and intactcolor Doppler flow. Contralateral common femoral vein: Appropriate [...] extremity deep venous thrombosis identified. MACRO: None MetroHealthRadiology Study observation (narrative)MetroHealthUS.doppler Lower extremity vein - rightOrdered By: Enrique Basurto on 48-69-5988YgbxiAmgjwg Work Phone: basic metabolic 1999 panelon 71-34-7212Wofze gap [Moles/Vol]11 mmol/L10 - 20MetroHealthCalcium [Mass/Vol]8.9 mg/dL8.4 - 10.4 mg/dLMetroHealthChloride [Moles/Vol]105 mmol/L97 - 111 mmol/LMetroHealthCO2 [Moles/Vol]25 mmol/L21 - 30 mmol/LMetroHealthCreatinine [Mass/Vol]0.58 mg/dLLow 0.8 - 1.3 mg/dLMetroHealthComment on above:Grossly icteric; may falsely decrease creatinineGFR/1.73 sq M.predicted MDRD (S/P/Bld) [Vol rate/Area]129 mL/min/{1.73_m2}- PINFMetroHealthComment on above:2020 CKD EPI Equation using Creatinine without Race [...] Inclusion of Race in Diagnosing Kidney Disease. AmericanJournal of Kidney Diseases 202;79(2):268-88.e1. 2. N Engl J Med 2020 Vol. 385 Issue 19 Pages 5735-2171 Glucose [Mass/Vol]79 mg/dL68 - 110 mg/dLMetroHealthInterpretation and review of laboratory resultsAbnormalMetroHealthPotassium [Moles/Vol]3.6 mmol/L3.3 - 5.3 mmol/LMetroHealthSodium [Moles/Vol]137 mmol/L135 - 148 mmol/LMetroHealthUrea nitrogen [Mass/Vol]3 mg/dLLow8 - 22 mg/dLMetroHealthMetroHealthCBC WITH DIFFERENTIALOrdered By: Isak Mitchell on 25-30-4757Mtkrurokr (Bld) [#/Vol]0.04 10*3/uL0 - 0.2 K/uLMetroHealthBasophils/100 WBC (Bld)0.9 %NINF - 1.9 % MetroHealthEosinophils (Bld) [#/Vol]0.12 10*3/uL0 - 0.7 K/uLMetroHealth Eosinophils/100 WBC (Bld)2.8 %0.1 - 4 %MetroHealthErythrocyte distribution width (RBC) [Ratio]16.8 %High11.5 - 14.5 %MetroHealthHematocrit (Bld) [Volume fraction]32.5 %Low41 - 53 %[facility]roHealthHemoglobin (Bld) [Mass/Vol]11.5 g/dLLow 13.9 - 16.3 g/dLMetroHealthInterpretation and review of laboratory results AbnormalMetroHealthLymphocytes (Bld) [#/Vol]1.14 10*3/uL1 - 4.8 K/uLMetroHealth Lymphocytes/100 WBC (Bld)27.1 %24 - 44 %MetroHealthMCH (RBC) [Entitic mass]35.6 ejCedd47 - 34 pgMetroHealthMCHC (RBC) [Mass/Vol]35.2 g/dL32 - 35.9 g/dL [facility]MCV (RBC) [Entitic vol]101 zNGdtb14 - 100 fLMetroHealthMonocyte distribution width Auto (Bld) [Entitic vol]MetroHealthMonocytes (Bld) [#/Vol] 0.69 10*3/uL0.2 - 1 K/uLMetroHealthMonocytes/100 WBC (Bld)16.4 %High2 - 11 % MetroHealthNeutrophils (Bld) [#/Vol]2.21 10*3/uL1.5 - 8 K/uLMetroHealth Neutrophils/100 WBC (Bld)52.8 %31 - 76 %MetroHealthPlatelet mean volume (Bld) [Entitic vol]7.9 fL7.5 - 11.2 fLMetroHealthPlatelets (Bld) [#/Vol]90 10*3/uLLow 150 - 400 K/uLMetroHealthRBC (Bld) [#/Vol]3.21 10*6/uLLowMetroHealthWBC (Bld) [#/Vol]4.2 10*3/uLLow4.5 - 11.5 K/uLMetroHealthMetroHealthHAPTOGLOBINon 28-44-3399Kwvpubpiurf [Mass/Vol]mg/dLLow36 - 220 mg/dLMetroHealthInterpretation and review of laboratory resultsAbnormalMetroHealthMetroHealthHEPATIC FUNCTION PANELon 14-43-7149Yvjdzvn [Mass/Vol]3.0 g/dLLow3.4 - 5.1 g/dLMetroHealthALP [Catalytic activity/Vol]373 U/LHighMetroHealthALT [Catalytic activity/Vol]47 U/L HighMetroHealthAST [Catalytic activity/Vol]87 U/LHighMetroHealthBilirubin [Mass/Vol]8.3 mg/dLHigh0.1 - 1.5 mg/dLMetroHealthBilirubin.direct [Mass/Vol]1.50 mg/dLHigh0.1 - 0.3 mg/dLMetroHealthProtein [Mass/Vol]6.7 g/dL6.2 - 8.3 g/dL MetroHealthLDHon 60-79-6997CSL [Catalytic activity/Vol]270 U/LHighMetroHealthNo Panel Informationon 06-70-8460Arxdprssmrnrkb and review of laboratory results AbnormalMetroHealthMetroHealthURIC ACIDon 95-38-4956Whztscikpltdkz and review of laboratory resultsNormalMetroHealthUrate [Mass/Vol]3.2 mg/dL2 - 7.3 mg/dL [facility]HealthBasic metabolic 2000 panelon 94-44-2085Uqkll gap [Moles/Vol]11 mmol/L MetroHealthCalcium [Mass/Vol]8.2 mg/dLLow8.4 - 10.4 mg/dLMetroHealthChloride [Moles/Vol]103 mmol/L97 - 111 mmol/LMetroHealthCO2 [Moles/Vol]25 mmol/L21 - 30 mmol/LMetroHealthCreatinine [Mass/Vol]0.51 mg/dLLow0.80 - 1.30 mg/dLMetroHealth Comment on above:Grossly icteric; may falsely decrease creatinineGFR/1.73 sq M.predicted MDRD (S/P/Bld) [Vol rate/Area]134 mL/min/{1.73_m2}>=60 mL/min/1.73sqmMetroHealthComment on above:2020 CKD EPI Equation using Creatinine without Race [...] Inclusion of Race in Diagnosing Kidney Disease. AmericanJournal of Kidney Diseases 202;79(2):268-88.e1. 2. N Engl J Med 2020 Vol. 385 Issue 19 Pages 7570-9742 Glucose [Mass/Vol]119 mg/uMZprd25 - 110 mg/dLMetroHealthInterpretation and review of laboratory resultsAbnormalMetroHealthPotassium [Moles/Vol]3.6 mmol/L 3.3 - 5.3 mmol/LMetroHealthSodium [Moles/Vol]135 mmol/L135 - 148 mmol/L MetroHealthUrea nitrogen [Mass/Vol]3 mg/dLLow8 - 22 mg/dLMetroUniversity Hospitals Samaritan Medical CenterMetHocking [facility] CBC WITH DIFFERENTIALon 57-51-0410Wkglfejvs (Bld) [#/Vol]0.03 10*3/uL0.00 - 0.20 K/uLMetroHealthBasophils/100 WBC (Bld)0.8 %<=1.9MetroHealthEosinophils (Bld) [#/Vol]0.20 10*3/uL0.00 - 0.70 K/uLMetroHealthEosinophils/100 WBC (Bld)5.1 %High 0.1 - 4.0 %MetroHealthErythrocyte distribution width (RBC) [Ratio]16.2 %High11.5 - 14.5 %MetroHealthHematocrit (Bld) [Volume fraction]28.4 %Low41.0 - 53.0 % MetroHealthHemoglobin (Bld) [Mass/Vol]9.9 g/dLLow13.9 - 16.3 g/dLMetroHealth Interpretation and review of laboratory resultsAbnormalMetroHealthLymphocytes (Bld) [#/Vol]1.56 10*3/uL1.00 - 4.80 K/uLMetroHealthLymphocytes/100 WBC (Bld) 39.3 %24.0 - 44.0 %MetroHealthMCH (RBC) [Entitic mass]35.4 xrJxmh57.0 - 34.0 pg MetroHealthMCHC (RBC) [Mass/Vol]35.0 g/dL32.0 - 35.9 g/dLMetroHealthMCV (RBC) [Entitic vol]101 jRGqam84 - 100 fLMetroHealthMonocyte distribution width Auto (Bld) [Entitic vol]MetroHealthMonocytes (Bld) [#/Vol]0.82 10*3/uL0.20 - 1.00 K/uLMetroHealthMonocytes/100 WBC (Bld)20.6 %High2.0 - 11.0 %[facility] Neutrophils (Bld) [#/Vol]1.35 10*3/uLLow1.50 - 8.00 K/uLMetroHealth Neutrophils/100 WBC (Bld)34.2 %31.0 - 76.0 %MetroHealthPlatelet mean volume (Bld) [Entitic vol]7.3 fLLow7.5 - 11.2 fLMetroHealthPlatelets (Bld) [#/Vol]114 10*3/eBOgd179 - 400 K/uLMetroHealthRBC (Bld) [#/Vol]2.81 10*6/uLLowMetroHealth WBC (Bld) [#/Vol]4.0 10*3/uLLow4.5 - 11.5 K/uLMetroHealthMetroHealthLaboratory - Chemistry and Chemistry - challengeon 65-51-3314Bijzxqq [Mass/Vol]2.6 g/dLLow 3.4 - 5.1 g/dLMetroHealthALP [Catalytic activity/Vol]278 U/LHighMetroHealthALT [Catalytic activity/Vol]33 U/LMetroHealthAST [Catalytic activity/Vol]68 U/LHigh MetroHealthBilirubin [Mass/Vol]5.6 mg/dLHigh0.1 - 1.5 mg/dLMetroHealth Bilirubin.direct [Mass/Vol]1.20 mg/dLHigh0.10 - 0.30 mg/dLMetroHealthLDH [Catalytic activity/Vol]258 U/LHighMetroHealthProtein [Mass/Vol]6.2 g/dL6.2 - 8.3 g/dLMetroHealthUrate [Mass/Vol]3.0 mg/dL2.0 - 7.3 mg/dLMetroHealthLaboratory - Hematology and Cell countson 27-66-6159Omsucczrnth [Mass/Vol]mg/dLLow36 - 220 mg/dLMetroHealthNo Panel Informationon 40-33-3070Xarjadzjcayclq and review of laboratory resultsAbnormalMetroHealthMetroHealthInterpretation and review of laboratory resultsAbnormalMetroHealthInterpretation and review of laboratory resultsNormalMetroHealthMetroHealthCHEMISTRYOrdered By: SYSTEM SYSTEM on 93-76-4582Iqehzpe [Mass/Vol]1.8 mmol/LNormal0.5 - 2.2 mmol/LFTMC RemisolAlbumin [Mass/Vol]2.8 g/dLLow3.3 - 5.0 gm/dLFTMC RemisolAlbumin/Globulin [Mass ratio]0.7 {ratio}Low1.1 - 2.2FT[facility] RemisolALP [Catalytic activity/Vol]265 [iU]/dHigh21 - 98 Int._Unit/LFTMC RemisolALT No additional P-5'-P [Catalytic activity/Vol]60 [iU]/dHigh6 - 46 Int._Unit/LFTMC RemisolAnion gap [Moles/Vol]12 mmol/LNormal6 - 16 mEq/LFTMC RemisolAST [Catalytic activity/Vol]93 [iU]/dHigh5 - 43 Int._Unit/L [facility] RemisolBilirubin [Mass/Vol]6.2 mg/dLHigh0.0 - 1.1 mg/dLFTMC Remisol Bilirubin.direct [Mass/Vol]1.6 mg/dLHigh0.1 - 0.4 mg/dLFTMC Remisol Bilirubin.indirect [Mass or moles/Vol]4.6 mg/dLHigh0.1 - 0.9 mg/dLFTMC Remisol Calcium [Mass/Vol]8.0 mg/dLLow8.9 - 11.1 mg/dLFTMC RemisolChloride [Moles/Vol] 102 mmol/EGpobgl747 - 111 mmol/LFTMC RemisolCO2 [Moles/Vol]22 mmol/MFrfclm71 - 31 mmol/LFTMC RemisolCreatinine [Mass/Vol]0.5 mg/dLNormal0.5 - 1.3 mg/dLFT[facility] RemisolGFR/1.73 sq M.predicted among blacks MDRD (S/P/Bld) [Vol rate/Area] mL/min/1.73 w7Tczbln>=59mL/min/1.73 m2[facility] Chem SGFR/1.73 sq M.predicted among non-blacks MDRD (S/P/Bld) [Vol rate/Area]mL/min/1.73 u4Nyuevo>=59mL/min/1.73 m2 [facility] Chem SGlobulin (S) [Mass/Vol]3.9 g/dLNormal1.4 - 4.0 gm/dLFT[facility] Remisol Glucose [Mass/Vol]123 mg/bGNlanmn18 - 199 mg/dLFT[facility] RemisolLipase [Catalytic activity/Vol]68 U/LHigh13 - 58 unit/LFT[facility] RemisolPotassium [Moles/Vol]3.2 mmol/L Low3.5 - 5.3 mmol/LFT[facility] RemisolProtein [Mass/Vol]6.7 g/dLNormal6.0 - 7.8 gm/dL [facility] RemisolSodium [Moles/Vol]133 mmol/QAbm578 - 145 mmol/LFT[facility] RemisolUrea nitrogen [Mass/Vol]6 mg/dLNormal5 - 21 mg/dLFT[facility] RemisolUrea nitrogen/Creatinine [Mass ratio]12 mg/zbCcqfut19 - 20[facility] RemisolCHEMISTRYOrdered By: Trista Root on 44-39-2011Bwibzrjevpp peptide B (Bld) [Mass/Vol]142 pg/mLHigh5 - 80 pg/mLFTMC HemeManSSHEMATOLOGYOrdered By: [employer] on 02-17-2022 Basophils/100 WBC (Bld)0.9 %Normal0.0 - 2.0 %[facility] HemeAutoSSBasophils/Leukocytes Auto (Bld) [Pure # fraction]0.0 E9/LNormal0.0 - 0.2 E9/LFTMC HemeAutoSS Eosinophils/100 WBC (Bld)2.9 %Normal0.0 - 8.0 %[facility] HemeAutoSS Eosinophils/Leukocytes Auto (Bld) [Pure # fraction]0.1 E9/LNormal0.0 - 0.5 E9/L [facility] HemeAutoSSLymphocytes/100 WBC (Bld)30.1 %Bwjijh00.0 - 50.0 %[facility] HemeAutoSS Lymphocytes/Leukocytes Auto (Bld) [Pure # fraction]1.5 E9/LNormal1.0 - 4.0 E9/L [facility] HemeAutoSSMonocytes/100 WBC (Bld)12.8 %Normal4.0 - 14.0 %[facility] HemeAutoSS Monocytes/Leukocytes Auto (Bld) [Pure # fraction]0.6 E9/LNormal0.2 - 1.0 E9/L [facility] HemeAutoSSNeutrophils/100 WBC (Bld)53.3 %Nokpgx10.0 - 75.0 %[facility] HemeAutoSS Neutrophils/Leukocytes Auto (Bld) [Pure # fraction]2.6 E9/LNormal2.0 - 7.5 E9/L [facility] HemeAutoSSHEMATOLOGYOrdered By: Ester Childers on [id number] distribution width (RBC) [Ratio]17.1 %High10.9 - 14.2 %[facility] HemeAutoSSHematocrit (Bld) [Volume fraction]29.1 %Low37.7 - 49.0 %[facility] HemeAutoSSHemoglobin (Bld) [Mass/Vol]10.4 g/dLLow13.5 - 17.5 gm/dLFTMC HemeAutoSSMCH (RBC) [Entitic mass] 37.8 lhSfjz69.0 - 34.0 pgFTMC HemeAutoSSMCHC (RBC) [Mass/Vol]35.7 g/tWRnvypx92.4 - 36.0 gm/dLFTMC HemeAutoSSMCV (RBC) [Entitic vol]105.8 iMNrjr26.0 - 100.0 fL [facility] HemeAutoSSPlatelet mean volume (Bld) [Entitic vol]7.3 fLNormal6.4 - 10.8 fL [facility] HemeAutoSSPlatelets (Bld) [#/Vol]113.0 E9/OQpr465.0 - 500.0 E9/LFT[facility] HemeAutoSSComment on above:Result Comment: Unable to obtain accurate platelet count due to platelet clumping. Platelet count estimate appears normal on slide. RBC (Bld) [#/Vol]2.8 E12/LLow4.3 - 5.9 E12/LFTMC HemeAutoSSWBC corrected for nucl RBC Auto (Bld) [#/Vol]4.9 E9/LNormal4.0 - 11.0 E9/LFT[facility] HemeAutoSS URINALYSISOrdered By: Loreta Barnett on [id number] Ql (U)Negative (02/17/22 1:14 PM)NormalNegativeFAIRFAX [facility] [place] Auto SSClarity (U)Clear (02/17/22 1:14 PM)NormalClearFCREEK NATION COMM[facility] – [place] UA Auto SSColor (U)Yellow (02/17/22 1:14 PM)NormalYellowFAIRFAX COMMUNITY HOSP[facility] – [place] UA Auto SSEpithelial cells.squamous LM.HPF (Urine sed) [#/Area]0-2 /HPFNormal0-2/HPFF[facility] [place] Auto SSGlucose Test strip (U) [Mass/Vol]Negative (02/17/22 1:14 PM)NormalNegativeFAIRFAX [facility] [place] UA Auto SSHemoglobin Ql (U)Negative (02/17/22 1:14 PM)NormalNegativeFA[facility]FA[facility] [place] Auto SSKetones (U) [Mass/Vol]Negative (02/17/22 1:14 PM)NormalNegativeFAIRFAX [facility] UA Auto SSLithium.plasma/Redbird Smith.RBC (Bld) [Mass ratio]0-3 /HPFNormal0-3/HPFFA[facility]FA[facility] [place] Auto SSNitrite Ql (U)Negative (02/17/22 1:14 PM)NormalNegativeFAIRFAX [facility] [place] Auto SSpH (U)7.0 *NA* (02/17/22 1:14 PM)Invalid Interpretation Code5.0 - 9.0[facility] [place] Auto SSProtein (U) [Mass/Vol]Negative (02/17/22 1:14 PM)NormalNegativeFAIRFAX [facility] [place] Auto SSSpecific gravity (U) [Rel density] <=1.005 *NA* (02/17/22 1:14 PM)Invalid Interpretation Code1.005 - 1.030[facility] [place] Auto SSUA Spec DescClean Catch (02/17/22 1:14 PM)NormalFA[facility]FA[facility] Auto SSUrobilinogen Qn (U)0.7030196 {Alexey'U}/dLNormal0.0 - 1.0 EU/dLFAIRFAX COMM[facility] [place] [facility] Auto SSWBC Auto Ql (U)Negative (02/17/22 1:14 PM)NormalNegativeFA[facility]FA[facility] [place] Auto SSWBC LM.HPF (Urine sed) [#/Area]0-5 /HPFNormal0-5/HPFF[facility] UA Auto SSBasic metabolic 2000 panelon 31-70-5439Lqajl gap [Moles/Vol]10 mmol/LMetroHealthCalcium [Mass/Vol]8.2 mg/dLLow8.4 - 10.4 mg/dLMetroHealthChloride [Moles/Vol]103 mmol/L97 - 111 mmol/LMetroHealthCO2 [Moles/Vol]24 mmol/L21 - 30 mmol/LMetroHealthCreatinine [Mass/Vol]0.49 mg/dLLow 0.80 - 1.30 mg/dLMetroHealthComment on above:Grossly icteric; may falsely decrease creatinineGFR/1.73 sq M.predicted MDRD (S/P/Bld) [Vol rate/Area]136 mL/min/{1.73_m2}>=60 mL/min/1.73sqmMetroHealthComment on above:2020 CKD EPI Equation using Creatinine without Race [...] Inclusion of Race in Diagnosing Kidney Disease. AmericanJournal of Kidney Diseases 202;79(2):268-88.e1. 2. N Engl J Med 2020 Vol. 385 Issue 19 Pages 8348-3185 Glucose [Mass/Vol]105 mg/dL68 - 110 mg/dLMetroHealthInterpretation and review of laboratory resultsAbnormalMetroHealthPotassium [Moles/Vol]3.3 mmol/L3.3 - 5.3 mmol/LMetroHealthSodium [Moles/Vol]134 mmol/PFlg336 - 148 mmol/LMetroHealthUrea nitrogen [Mass/Vol]7 mg/dLLow8 - 22 mg/dLMetroHealthMetroHealthCBC WITH DIFFERENTIALOrdered By: Ami Brock on 30-96-7033Zarmlvqkshl distribution width (RBC) [Ratio]17.1 %High11.5 - 14.5 %MetroHealthHematocrit (Bld) [Volume fraction]29.1 %Low41.0 - 53.0 %MetroHealthHemoglobin (Bld) [Mass/Vol]10.0 g/dL Low13.9 - 16.3 g/dLMetroHealthMCH (RBC) [Entitic mass]37.3 rpEanl54.0 - 34.0 pg MetroHealthMCHC (RBC) [Mass/Vol]34.5 g/dL32.0 - 35.9 g/dLMetroHealthMCV (RBC) [Entitic vol]108 hKMxsq49 - 100 fLMetroHealthMonocyte distribution width Auto (Bld) [Entitic vol]MetroHealthPlatelet mean volume (Bld) [Entitic vol]7.2 fLLow 7.5 - 11.2 fLMetroHealthPlatelets (Bld) [#/Vol]81 10*3/wBEyk452 - 400 K/uL MetroHealthRBC (Bld) [#/Vol]2.69 10*6/uLLowMetroHealthWBC (Bld) [#/Vol]4.9 10*3/uL4.5 - 11.5 K/uLMetroHealthHAPTOGLOBINon 38-37-2011Kpliwgarcqz [Mass/Vol] mg/dLLow36 - 220 mg/dLMetroHealthInterpretation and review of laboratory results AbnormalMetroHealthMetroHealthLDHon 33-37-4555KML [Catalytic activity/Vol]321 U/LHighMetroHealthLaboratory - Chemistry and Chemistry - challengeon 02-11-2022 Albumin [Mass/Vol]2.8 g/dLLow3.4 - 5.1 g/dLMetroHealthALP [Catalytic activity/Vol]226 U/LHighMetroHealthALT [Catalytic activity/Vol]77 U/LHigh MetroHealthAST [Catalytic activity/Vol]88 U/LHighMetroHealthBilirubin [Mass/Vol] 7.7 mg/dLHigh0.1 - 1.5 mg/dLMetroHealthBilirubin.direct [Mass/Vol]1.70 mg/dLHigh 0.10 - 0.30 mg/dLMetroHealthProtein [Mass/Vol]6.2 g/dL6.2 - 8.3 g/dLMetroHealth MANUAL DIFF AND MORPHon 98-76-6324Kpdlqseqhzbu Ql (Bld)SlightMetroHealthBand form neutrophils/100 WBC (Bld)5 %<=10MetroHealthBands #0.25 K/uLHigh<0.01 MetroHealthCells Counted Total (Bld) [#]100 {cells}MetroHealthEosinophils (Bld) [#/Vol]0.15 10*3/uL0.00 - 0.70 K/uLMetroHealthEosinophils/100 WBC (Bld)3.0 %0.1 - 4.0 %MetroHealthLymphocytes (Bld) [#/Vol]1.08 10*3/uL1.00 - 4.80 K/uL MetroHealthLymphocytes/100 WBC (Bld)22.0 %Low24.0 - 44.0 %[facility] Metamyelocyte #0.05 K/uLHigh<0.01MetroHealthMetamyelocytes/100 WBC (Bld)1 %High <0MetroHealthMonocytes (Bld) [#/Vol]0.54 10*3/uL0.20 - 1.00 K/uLMetroHealth Monocytes/100 WBC (Bld)11.0 %2.0 - 11.0 %MetroHealthNeutrophils (Bld) [#/Vol] 2.84 10*3/uL1.50 - 8.00 K/uLMetroHealthNeutrophils/100 WBC (Bld)58.0 %31.0 - 76.0 %MetroHealthNucleated RBC/100 WBC (Bld) [Ratio]1 %MetroHealthNucleated RBCs 1 K/uLMetroHealthPolychromasia LM Ql (Bld)SlightMetroHealthNo Panel Information Ordered By: Ami Brock on 79-48-8996Gzlymaowlbjulq and review of laboratory resultsAbnormalMetroHealthMetroHealthNo Panel Informationon 02-11-2022 Interpretation and review of laboratory resultsAbnormalMetroHealthMetroHealth RETICULOCYTE COUNTOrdered By: Kennedi Fuentes on 89-92-3093Jllclokq reticulocytes/Total reticulocytes (Bld)0.45 %MetroHealthInterpretation and review of laboratory resultsAbnormalMetroHealthReticulocytes (Bld) [#/Vol]0.08 10*3/uLMetroHealthReticulocytes/100 RBC (Bld)3.0 %High0.5 - 1.5 %[facility] MetroHealthBasic metabolic 2000 panelon 75-45-5105Qufkk gap [Moles/Vol]13 mmol/L MetroHealthCalcium [Mass/Vol]8.2 mg/dLLow8.4 - 10.4 mg/dLMetroHealthChloride [Moles/Vol]99 mmol/L97 - 111 mmol/LMetroHealthCO2 [Moles/Vol]23 mmol/L21 - 30 mmol/LMetroHealthCreatinine [Mass/Vol]0.42 mg/dLLow0.80 - 1.30 mg/dLMetroHealth GFR/1.73 sq M.predicted MDRD (S/P/Bld) [Vol rate/Area]142 mL/min/{1.73_m2}>=60 mL/min/1.73sqmMetroHealthGlucose [Mass/Vol]84 mg/dL68 - 110 mg/dLMetroHealth Potassium [Moles/Vol]3.8 mmol/L3.3 - 5.3 mmol/LMetroHealthSodium [Moles/Vol]131 mmol/UEwo736 - 148 mmol/LMetroHealthUrea nitrogen [Mass/Vol]8 mg/dL8 - 22 mg/dL MetroHealthCBC panel Auto (Bld)Ordered By: Isak Mitchell on 01-17-2022 Erythrocyte distribution width (RBC) [Ratio]23.6 %High11.5 - 14.5 %[facility] Hematocrit (Bld) [Volume fraction]23.3 %Low41.0 - 53.0 %MetroHealthHemoglobin (Bld) [Mass/Vol]8.0 g/dLLow13.9 - 16.3 g/dLMetroHealthInterpretation and review of laboratory resultsAbnormalMetroHealthMCH (RBC) [Entitic mass]38.1 oyXcax02.0 - 34.0 pgMetroHealthMCHC (RBC) [Mass/Vol]34.2 g/dL32.0 - 35.9 g/dLMetroHealthMCV (RBC) [Entitic vol]111 qNEsot57 - 100 fLMetroHealthPlatelet mean volume (Bld) [Entitic vol]9.2 fL7.5 - 11.2 fLMetroHealthPlatelets (Bld) [#/Vol]96 10*3/uLLow 150 - 400 K/uLMetroHealthRBC (Bld) [#/Vol]2.09 10*6/uLLowMetroHealthWBC (Bld) [#/Vol]9.5 10*3/uL4.5 - 11.5 K/uLMetroHealthMetroHealthGLUCOSE, FINGERSTICK-IN OFFICEon 75-30-2274Hxbjrng [Mass/Vol]188 mg/iEJxcp26 - 110 mg/dLMetroHealth Interpretation and review of laboratory resultsAbnormalMetroUniversity Hospitals Samaritan Medical CenterMetroHealth HAPTOGLOBINon 26-63-3346Zqywlidnfhl [Mass/Vol]mg/dLLow36 - 220 mg/dLMetroHealth Interpretation and review of laboratory resultsAbnormalMetroHealthMetroHealth HEPATIC FUNCTION PANELon 05-94-5939Epaccxz [Mass/Vol]2.8 g/dLLow3.4 - 5.1 g/dL [facility]HealthALP [Catalytic activity/Vol]133 U/LMetroHealthALT [Catalytic activity/Vol]75 U/LHighMetroHealthAST [Catalytic activity/Vol]94 U/LHigh MetroHealthBilirubin [Mass/Vol]12.6 mg/dLHigh0.1 - 1.5 mg/dLMetroHealth Bilirubin.direct [Mass/Vol]2.40 mg/dLHigh0.10 - 0.30 mg/dLMetroHealthProtein [Mass/Vol]6.7 g/dL6.2 - 8.3 g/dLMetroHealthLDHon 69-01-8410WRR [Catalytic activity/Vol]514 U/LHighMetroHealthNo Panel Informationon 01-17-2022 Interpretation and review of laboratory resultsAbnormalMetroHealthMetroHealth PROTHROMBIN TIME AND INRon 29-40-1605KRJ Coag (PPP) [Relative time]1.97 {INR} HighMetroHealthInterpretation and review of laboratory resultsAbnormal MetroHealthPT Coag (PPP) [Time]22.1 sHighMetroHealthMetroHealthRETICULOCYTE COUNTon 33-92-9791Towflqqu reticulocytes/Total reticulocytes (Bld)0.61 %High MetroHealthInterpretation and review of laboratory resultsAbnormalMetroHealth Reticulocytes (Bld) [#/Vol]0.14 10*3/uLHighMetroHealthReticulocytes/100 RBC (Bld)6.5 %High0.5 - 1.5 %MetroHealthMetroHealthBasic metabolic 2000 panelon 99-35-8921Gannq gap [Moles/Vol]14 mmol/LMetroHealthCalcium [Mass/Vol]8.3 mg/dL Low8.4 - 10.4 mg/dLMetroHealthChloride [Moles/Vol]98 mmol/L97 - 111 mmol/L [facility]HealthCO2 [Moles/Vol]24 mmol/L21 - 30 mmol/LMetroHealthCreatinine [Mass/Vol]0.42 mg/dLLow0.80 - 1.30 mg/dLMetroHealthGFR/1.73 sq M.predicted MDRD (S/P/Bld) [Vol rate/Area]142 mL/min/{1.73_m2}>=60 mL/min/1.73sqmMetroHealth Glucose [Mass/Vol]102 mg/dL68 - 110 mg/dLMetroHealthPotassium [Moles/Vol]3.7 mmol/L3.3 - 5.3 mmol/LMetroHealthSodium [Moles/Vol]132 mmol/SJdh638 - 148 mmol/L MetroHealthUrea nitrogen [Mass/Vol]9 mg/dL8 - 22 mg/dLMetroHealthCBC panel Auto (Bld)on 43-17-3612Dgeuiureovh distribution width (RBC) [Ratio]23.7 %High11.5 - 14.5 %MetroHealthHematocrit (Bld) [Volume fraction]21.6 %Low41.0 - 53.0 % MetroHealthHemoglobin (Bld) [Mass/Vol]7.4 g/dLLow13.9 - 16.3 g/dLMetroHealth Interpretation and review of laboratory resultsAbnormalMetroHealthMCH (RBC) [Entitic mass]38.6 biNfie83.0 - 34.0 pgMetroHealthMCHC (RBC) [Mass/Vol]34.4 g/dL 32.0 - 35.9 g/dLMetroHealthMCV (RBC) [Entitic vol]112 hITlqx09 - 100 fL MetroHealthPlatelet mean volume (Bld) [Entitic vol]9.3 fL7.5 - 11.2 fL MetroHealthPlatelets (Bld) [#/Vol]94 10*3/rAPjc359 - 400 K/uLMetroHealthRBC (Bld) [#/Vol]1.92 10*6/uLLowMetroHealthWBC (Bld) [#/Vol]9.2 10*3/uL4.5 - 11.5 K/uLMetroHealthMetroHealthGLUCOSE, FINGERSTICK-IN OFFICEon 10-12-5738Bfazlvo [Mass/Vol]145 mg/zHBzqq40 - 110 mg/dLMetroHealthInterpretation and review of laboratory resultsAbnormalMetroHealthMetroHealthGlucose [Mass/Vol]247 mg/dLHigh 68 - 110 mg/dLMetroHealthInterpretation and review of laboratory resultsAbnormal MetroHealthMetroHealthGlucose [Mass/Vol]132 mg/gRDmeq06 - 110 mg/dLMetroHealth Interpretation and review of laboratory resultsAbnormalMetroHealthMetroHealth Glucose [Mass/Vol]90 mg/dL68 - 110 mg/dLMetroHealthInterpretation and review of laboratory resultsNormalMetroHealthMetroHealthHAPTOGLOBINon 01-16-2022 Haptoglobin [Mass/Vol]mg/dLLow36 - 220 mg/dLMetroHealthInterpretation and review of laboratory resultsAbnormalMetroHealthMetroHealthHEPATIC FUNCTION PANELon 09-80-2495Ocuhszu [Mass/Vol]2.7 g/dLLow3.4 - 5.1 g/dLMetroHealthALP [Catalytic activity/Vol]124 U/LMetroHealthALT [Catalytic activity/Vol]69 U/LHighMetroHealth AST [Catalytic activity/Vol]93 U/LHighMetroHealthBilirubin [Mass/Vol]12.7 mg/dL High0.1 - 1.5 mg/dLMetroHealthBilirubin.direct [Mass/Vol]2.30 mg/dLHigh0.10 - 0.30 mg/dLMetroHealthProtein [Mass/Vol]6.3 g/dL6.2 - 8.3 g/dLMetroHealthLDHon 79-48-8705JKF [Catalytic activity/Vol]476 U/LHighMetroHealthNo Panel Information on 03-49-5458Kmfgymlrceokqd and review of laboratory resultsAbnormalMetroHealth MetroHealthPROTHROMBIN TIME AND INRon 27-57-4195IJB Coag (PPP) [Relative time] 2.08 {INR}HighMetroHealthInterpretation and review of laboratory resultsAbnormal MetroHealthPT Coag (PPP) [Time]23.3 sHighMetroHealthMetroHealthBasic metabolic 2000 panelon 65-56-8832Gqvth gap [Moles/Vol]14 mmol/LMetroHealthCalcium [Mass/Vol]7.9 mg/dLLow8.4 - 10.4 mg/dLMetroHealthChloride [Moles/Vol]97 mmol/L97 - 111 mmol/LMetroHealthCO2 [Moles/Vol]25 mmol/L21 - 30 mmol/LMetroHealth Creatinine [Mass/Vol]0.42 mg/dLLow0.80 - 1.30 mg/dLMetroHealthGFR/1.73 sq M.predicted MDRD (S/P/Bld) [Vol rate/Area]142 mL/min/{1.73_m2}>=60 mL/min/1.73sqmMetroHealthGlucose [Mass/Vol]112 mg/mLLsdb99 - 110 mg/dL MetroHealthPotassium [Moles/Vol]3.5 mmol/L3.3 - 5.3 mmol/LMetroHealthSodium [Moles/Vol]132 mmol/VTvn848 - 148 mmol/LMetroHealthUrea nitrogen [Mass/Vol]8 mg/dL8 - 22 mg/dLMetroHealthCBC panel Auto (Bld)on 27-55-9962Iaurdctofvl distribution width (RBC) [Ratio]24.4 %High11.5 - 14.5 %MetroHealthHematocrit (Bld) [Volume fraction]21.1 %Low41.0 - 53.0 %[facility]roHealthHemoglobin (Bld) [Mass/Vol]7.3 g/dLLow13.9 - 16.3 g/dLMetroHealthInterpretation and review of laboratory resultsAbnormalMetroHealthMCH (RBC) [Entitic mass]38.7 xuXtyk77.0 - 34.0 pgMetroHealthMCHC (RBC) [Mass/Vol]34.4 g/dL32.0 - 35.9 g/dLMetroHealthMCV (RBC) [Entitic vol]113 fVFgfp80 - 100 fLMetroHealthPlatelet mean volume (Bld) [Entitic vol]9.8 fL7.5 - 11.2 fLMetroHealthPlatelets (Bld) [#/Vol]74 10*3/uLLow 150 - 400 K/uLMetroHealthRBC (Bld) [#/Vol]1.88 10*6/uLLowMetroHealthWBC (Bld) [#/Vol]8.9 10*3/uL4.5 - 11.5 K/uLMetroHealthMetroHealthGLUCOSE, FINGERSTICK-IN OFFICEon 68-34-2176Pmewkis [Mass/Vol]149 mg/tPWnga85 - 110 mg/dLMetroHealth Interpretation and review of laboratory resultsAbnormalMetroHealthMetroHealth Glucose [Mass/Vol]175 mg/hCXioj27 - 110 mg/dLMetroHealthInterpretation and review of laboratory resultsAbnormalMetroHealthMetroHealthGlucose [Mass/Vol]129 mg/aOPjhh18 - 110 mg/dLMetroHealthInterpretation and review of laboratory resultsAbnormalMetroHealthMetroHealthGlucose [Mass/Vol]148 mg/tCUaat35 - 110 mg/dLMetroHealthInterpretation and review of laboratory resultsAbnormal MetroHealthMetroHealthHAPTOGLOBINon 76-85-0169Cfrfathmqjz [Mass/Vol]mg/dLLow36 - 220 mg/dLMetroHealthInterpretation and review of laboratory resultsAbnormal MetroHealthMetroHealthHEPATIC FUNCTION PANELon 29-34-2116Uqlragf [Mass/Vol]2.6 g/dLLow3.4 - 5.1 g/dLMetroHealthALP [Catalytic activity/Vol]182 U/LMetroHealth ALT [Catalytic activity/Vol]65 U/LHighMetroHealthAST [Catalytic activity/Vol]104 U/LHighMetroHealthBilirubin [Mass/Vol]10.8 mg/dLHigh0.1 - 1.5 mg/dLMetroHealth Bilirubin.direct [Mass/Vol]2.10 mg/dLHigh0.10 - 0.30 mg/dLMetroHealthProtein [Mass/Vol]6.5 g/dL6.2 - 8.3 g/dLMetroHealthLDHon 04-12-9350FIE [Catalytic activity/Vol]481 U/LHighMetroHealthNo Panel Informationon 01-15-2022 Interpretation and review of laboratory resultsAbnormalMetroHealthMetroHealth PROTHROMBIN TIME AND INRon 27-77-6445IES Coag (PPP) [Relative time]1.89 {INR} HighMetroHealthInterpretation and review of laboratory resultsAbnormal MetroHealthPT Coag (PPP) [Time]21.2 sHighMetroHealthMetroHealthBasic metabolic 2000 panelon 97-65-0519Rdslw gap [Moles/Vol]11 mmol/LMetroHealthCalcium [Mass/Vol]8.2 mg/dLLow8.4 - 10.4 mg/dLMetroHealthChloride [Moles/Vol]101 mmol/L 97 - 111 mmol/LMetroHealthCO2 [Moles/Vol]27 mmol/L21 - 30 mmol/LMetroHealth Creatinine [Mass/Vol]0.44 mg/dLLow0.80 - 1.30 mg/dLMetroHealthGFR/1.73 sq M.predicted MDRD (S/P/Bld) [Vol rate/Area]140 mL/min/{1.73_m2}>=60 mL/min/1.73sqmMetroHealthGlucose [Mass/Vol]136 mg/nDGlmq19 - 110 mg/dL MetroHealthPotassium [Moles/Vol]3.4 mmol/L3.3 - 5.3 mmol/LMetroHealthSodium [Moles/Vol]136 mmol/L135 - 148 mmol/LMetroHealthUrea nitrogen [Mass/Vol]6 mg/dL Low8 - 22 mg/dLMetroHealthCBC WITH DIFFERENTIALOrdered By: Erika Martin on 43-33-6792Ggpwwqtpara distribution width (RBC) [Ratio]24.1 %High11.5 - 14.5 % MetroHealthHematocrit (Bld) [Volume fraction]21.3 %Low41.0 - 53.0 %[facility] Hemoglobin (Bld) [Mass/Vol]7.3 g/dLLow13.9 - 16.3 g/dLMetroHealthMCH (RBC) [Entitic mass]38.4 puGbyk63.0 - 34.0 pgMetroHealthMCHC (RBC) [Mass/Vol]34.4 g/dL 32.0 - 35.9 g/dLMetroHealthMCV (RBC) [Entitic vol]112 vBGqek22 - 100 fL MetroHealthMonocyte distribution width Auto (Bld) [Entitic vol][facility] Nucleated RBC (Bld) [#/Vol]0.15 10*3/uLMetroHealthNucleated RBC/100 WBC (Bld) [Ratio]2.0 %MetroHealthPlatelet mean volume (Bld) [Entitic vol]9.4 fL7.5 - 11.2 fLMetroHealthPlatelets (Bld) [#/Vol]65 10*3/xBPnh883 - 400 K/uLMetroHealthRBC (Bld) [#/Vol]1.91 10*6/uLLowMetroHealthWBC (Bld) [#/Vol]7.3 10*3/uL4.5 - 11.5 K/uLMetroHealthFIBRINOGENOrdered By: Elvia Humphrey on 72-68-5207Xgwwqh+Fibrinogen fragments (S) [Mass/Vol]122 mg/cUJlg825 - 500 mg/dLMetroHealthInterpretation and review of laboratory resultsAbnormalMetroHealthMetroHealthGLUCOSE, FINGERSTICK- IN OFFICEon 69-65-7155Wsajgpr [Mass/Vol]139 mg/eBTyeq99 - 110 mg/dLMetroHealth Interpretation and review of laboratory resultsAbnormalMetroHealthMetroHealth Glucose [Mass/Vol]203 mg/mDEtum42 - 110 mg/dLMetroHealthInterpretation and review of laboratory resultsAbnormalMetroHealthMetroHealthGlucose [Mass/Vol]143 mg/xZOqpq11 - 110 mg/dLMetroHealthInterpretation and review of laboratory resultsAbnormalMetroHealthMetroHealthGlucose [Mass/Vol]154 mg/lNOxqt50 - 110 mg/dLMetroHealthInterpretation and review of laboratory resultsAbnormal MetroHealthMetroHealthHAPTOGLOBINon 06-61-7061Llrpsqdpavq [Mass/Vol]mg/dLLow36 - 220 mg/dLMetroHealthInterpretation and review of laboratory resultsAbnormal MetroHealthMetroHealthHEPATIC FUNCTION PANELon 38-00-8728Dzvwgcf [Mass/Vol]2.6 g/dLLow3.4 - 5.1 g/dLMetroHealthALP [Catalytic activity/Vol]177 U/LMetroHealth ALT [Catalytic activity/Vol]62 U/LHighMetroHealthAST [Catalytic activity/Vol]104 U/LHighMetroHealthBilirubin [Mass/Vol]11.5 mg/dLHigh0.1 - 1.5 mg/dLMetroHealth Bilirubin.direct [Mass/Vol]2.20 mg/dLHigh0.10 - 0.30 mg/dLMetroHealthProtein [Mass/Vol]6.4 g/dL6.2 - 8.3 g/dLMetroHealthLDHon 89-84-7455YBR [Catalytic activity/Vol]473 U/LHighMetroHealthLaboratory - Microbiology and Antimicrobial susceptibilityon 81-47-8133Oqdazcvg identified Cx Nom (Bld)No GrowthMetroHealth MANUAL DIFF AND MORPHon 31-80-0654Qxahtnmstbpl Ql (Bld)MarkedMetroHealthBurr cells LM Ql (Bld)FewMetroHealthCells Counted Total (Bld) [#]100 {cells} MetroHealthEosinophils (Bld) [#/Vol]0.15 10*3/uL0.00 - 0.70 K/uLMetroHealth Eosinophils/100 WBC (Bld)2.0 %0.1 - 4.0 %MetroHealthLymphocytes (Bld) [#/Vol] 1.46 10*3/uL1.00 - 4.80 K/uLMetroHealthLymphocytes/100 WBC (Bld)20.0 %Low24.0 - 44.0 %MetroHealthMacrocytes Ql (Bld)ModerateMetroHealthMetamyelocyte #0.07 K/uL High<0.01MetroHealthMetamyelocytes/100 WBC (Bld)1 %High<0MetroHealthMonocytes (Bld) [#/Vol]0.66 10*3/uL0.20 - 1.00 K/uLMetroHealthMonocytes/100 WBC (Bld)9.0 % 2.0 - 11.0 %MetroHealthMyelocyte #0.15 K/uLHigh<0.51WamuaSakhatDyrligwmfb3 %High <0MetroHealthNeutrophils (Bld) [#/Vol]4.82 10*3/uL1.50 - 8.00 K/uLMetroHealth Neutrophils/100 WBC (Bld)66.0 %31.0 - 76.0 %MetroHealthOvalocytes LM Ql (Bld)Few MetroHealthPolychromasia LM Ql (Bld)SlightMetroHealthSchistocytes LM Ql (Bld)Few MetroHealthTarget cells LM Ql (Bld)FewMetroHealthNo Panel Informationon 09-04-6669Vtxnbbemyimoal and review of laboratory resultsNormalMetroHealth MetroHealthInterpretation and review of laboratory resultsAbnormalMetroHealth MetroHealthNo Panel InformationOrdered By: Erika Martin on 01-14-2022 Interpretation and review of laboratory resultsAbnormalMetroHealthMetroHealth PROTHROMBIN TIME AND INRon 18-76-1116IHQ Coag (PPP) [Relative time]1.94 {INR} HighMetroHealthInterpretation and review of laboratory resultsAbnormal MetroHealthPT Coag (PPP) [Time]21.8 sHighMetroHealthMetroHealthBasic metabolic 2000 panelon 94-36-1628Zvmfr gap [Moles/Vol]10 mmol/LMetroHealthCalcium [Mass/Vol]8.1 mg/dLLow8.4 - 10.4 mg/dLMetroHealthChloride [Moles/Vol]99 mmol/L97 - 111 mmol/LMetroHealthCO2 [Moles/Vol]29 mmol/L21 - 30 mmol/LMetroHealth Creatinine [Mass/Vol]0.40 mg/dLLow0.80 - 1.30 mg/dLMetroHealthGFR/1.73 sq M.predicted MDRD (S/P/Bld) [Vol rate/Area]144 mL/min/{1.73_m2}>=60 mL/min/1.73sqmMetroHealthGlucose [Mass/Vol]130 mg/zPFlza86 - 110 mg/dL [facility]HealthPotassium [Moles/Vol]3.4 mmol/L3.3 - 5.3 mmol/LMetroHealthSodium [Moles/Vol]135 mmol/L135 - 148 mmol/LMetroHealthUrea nitrogen [Mass/Vol]6 mg/dL Low8 - 22 mg/dLMetroHealthCBC WITH DIFFERENTIALon 77-26-0242Tmftocncjsw distribution width (RBC) [Ratio]24.4 %High11.5 - 14.5 %MetroHealthHematocrit (Bld) [Volume fraction]19.3 %Critically low41.0 - 53.0 %[facility]roHealthHemoglobin (Bld) [Mass/Vol]6.7 g/dLCritically low13.9 - 16.3 g/dLMetroHealthMCH (RBC) [Entitic mass]38.1 okVlqg10.0 - 34.0 pgMetroHealthMCHC (RBC) [Mass/Vol]34.7 g/dL 32.0 - 35.9 g/dLMetroHealthMCV (RBC) [Entitic vol]110 cUGfqs79 - 100 fL MetroHealthMonocyte distribution width Auto (Bld) [Entitic vol][facility] Nucleated RBC (Bld) [#/Vol]0.22 10*3/uLMetroHealthNucleated RBC/100 WBC (Bld) [Ratio]3.0 %MetroHealthPlatelet mean volume (Bld) [Entitic vol]8.9 fL7.5 - 11.2 fLMetroHealthPlatelets (Bld) [#/Vol]67 10*3/xDFkm312 - 400 K/uLMetroHealthRBC (Bld) [#/Vol]1.76 10*6/uLLowMetroHealthWBC (Bld) [#/Vol]7.3 10*3/uL4.5 - 11.5 K/uLMetroHealthCOPPERon 64-32-8730Nrpkek [Mass/Vol]63LowMetroHealth Interpretation and review of laboratory resultsAbnormalMetroHealthMetroHealth MetroHealthFACTOR VIII ASSAYOrdered By: Jozef Gibbons on 59-54-2673Qbgknv VIII Vjjnt571 %High55 - 180 %MetroHealthInterpretation and review of laboratory resultsAbnormalMetroHealthMetroHealthGLUCOSE, FINGERSTICK-IN OFFICEon 01-13-2022 Glucose [Mass/Vol]185 mg/oCJyhy89 - 110 mg/dLMetroHealthGlucose [Mass/Vol]226 mg/iJGubg84 - 110 mg/dLMetroHealthGlucose [Mass/Vol]152 mg/iIXzqe80 - 110 mg/dL MetroHealthInterpretation and review of laboratory resultsAbnormalMetroUniversity Hospitals [facility] MetroHealthGlucose [Mass/Vol]140 mg/uEGhhs19 - 110 mg/dLMetroHealth Interpretation and review of laboratory resultsAbnormalMetroUniversity Hospitals Samaritan Medical CenterMetroHealth HAPTOGLOBINon 86-06-6807Ibrpqzqtalg [Mass/Vol]mg/dLLow36 - 220 mg/dLMetroHealth Interpretation and review of laboratory resultsAbnormalMetroHealthMetroHealth HEPATIC FUNCTION PANELon 50-46-3448Jedhueb [Mass/Vol]2.6 g/dLLow3.4 - 5.1 g/dL MetroHealthALP [Catalytic activity/Vol]169 U/LMetroHealthALT [Catalytic activity/Vol]63 U/LHighMetroHealthAST [Catalytic activity/Vol]124 U/LHigh MetroHealthBilirubin [Mass/Vol]11.4 mg/dLHigh0.1 - 1.5 mg/dLMetroHealth Bilirubin.direct [Mass/Vol]2.10 mg/dLHigh0.10 - 0.30 mg/dLMetroHealthProtein [Mass/Vol]6.2 g/dL6.2 - 8.3 g/dLMetroHealthHEPATITIS C QUANT BY PCROrdered By: Gera Meza on 30-73-5873OLT RNA panel NAGIE+probeNot detectedNot Detected MetroHealthMetroHealthMetroHealthLDHon 63-69-1993ZOU [Catalytic activity/Vol]497 U/LHighMetroHealthMANUAL DIFF AND MORPHon 52-40-7062Blrasvixopry Ql (Bld)Marked MetroHealthAtypical Lymph #0.15 K/uLMetroHealthBand form neutrophils/100 WBC (Bld)8 %<=10MetroHealthBands #0.58 K/uLHigh<0.01MetroHealthBurr cells LM Ql (Bld)FewMetroHealthCells Counted Total (Bld) [#]100 {cells}[facility] Lymphocytes (Bld) [#/Vol]1.10 10*3/uL1.00 - 4.80 K/uLMetroHealthLymphocytes/100 WBC (Bld)15.0 %Low24.0 - 44.0 %MetroHealthMacrocytes Ql (Bld)ModerateMetroHealth Metamyelocyte #0.07 K/uLHigh<0.01MetroHealthMetamyelocytes/100 WBC (Bld)1 %High <0MetroHealthMonocytes (Bld) [#/Vol]0.07 10*3/uLLow0.20 - 1.00 K/uLMetroHealth Monocytes/100 WBC (Bld)1.0 %Low2.0 - 11.0 %MetroHealthMyelocyte #0.29 K/uLHigh <0.47CtfmzSiyuusZytmlbfbhq6 %High<0MetroHealthNeutrophils (Bld) [#/Vol]5.04 10*3/uL1.50 - 8.00 K/uLMetroHealthNeutrophils/100 WBC (Bld)69.0 %31.0 - 76.0 % MetroHealthPolychromasia LM Ql (Bld)ModerateMetroHealthTarget cells LM Ql (Bld) FewMetroHealthVariant lymphocytes/100 WBC (Bld)2 %MetroHealthNo Panel Informationon 59-95-5931Kkaetbsczfznpc and review of laboratory resultsAbnormal MetroHealthMetroHealthInterpretation and review of laboratory resultsAbnormal MetroHealthMetroHealthInterpretation and review of laboratory resultsAbnormal MetroHealthMetroHealthPROTHROMBIN TIME AND INRon 66-20-7999VZO Coag (PPP) [Relative time]2.05 {INR}HighMetroHealthInterpretation and review of laboratory resultsAbnormalMetroHealthPT Coag (PPP) [Time]23.0 [facility] HospitaletroHealthMetroHealth Basic metabolic 2000 panelon 74-52-3181Bfswm gap [Moles/Vol]11 mmol/LMetroHealth Calcium [Mass/Vol]7.9 mg/dLLow8.4 - 10.4 mg/dLMetroHealthChloride [Moles/Vol]98 mmol/L97 - 111 mmol/LMetroHealthCO2 [Moles/Vol]26 mmol/L21 - 30 mmol/L MetroHealthCreatinine [Mass/Vol]0.39 mg/dLLow0.80 - 1.30 mg/dLMetroHealth GFR/1.73 sq M.predicted MDRD (S/P/Bld) [Vol rate/Area]145 mL/min/{1.73_m2}>=60 mL/min/1.73sqmMetroHealthGlucose [Mass/Vol]147 mg/rBGeeg54 - 110 mg/dL MetroHealthInterpretation and review of laboratory resultsAbnormalMetroHealth Potassium [Moles/Vol]3.2 mmol/LLow3.3 - 5.3 mmol/LMetroHealthSodium [Moles/Vol] 132 mmol/LUno717 - 148 mmol/LMetroHealthUrea nitrogen [Mass/Vol]6 mg/dLLow8 - 22 mg/dLMetroHealthMetroHealthCBC WITH DIFFERENTIALOrdered By: Tayla Strickland on 81-34-9756Tiycrcwqrei distribution width (RBC) [Ratio]25.3 %High11.5 - 14.5 % MetroHealthHematocrit (Bld) [Volume fraction]19.5 %Critically low41.0 - 53.0 % MetroHealthHemoglobin (Bld) [Mass/Vol]6.6 g/dLCritically low13.9 - 16.3 g/dL [facility]HealthMCH (RBC) [Entitic mass]38.2 jxXiyg10.0 - 34.0 pgMetroHealthMCHC (RBC) [Mass/Vol]33.9 g/dL32.0 - 35.9 g/dLMetroHealthMCV (RBC) [Entitic vol]113 yTCbcn97 - 100 fLMetroHealthMonocyte distribution width Auto (Bld) [Entitic vol] MetroHealthNucleated RBC (Bld) [#/Vol]0.12 10*3/uLMetroHealthNucleated RBC/100 WBC (Bld) [Ratio]1.6 %MetroHealthPlatelet mean volume (Bld) [Entitic vol]8.8 fL 7.5 - 11.2 fLMetroHealthPlatelets (Bld) [#/Vol]69 10*3/sRQpw315 - 400 K/uL [facility]HealthRBC (Bld) [#/Vol]1.73 10*6/uLLowMetroHealthWBC (Bld) [#/Vol]7.8 10*3/uL4.5 - 11.5 K/uLMetroHealthCBC WITH DIFFERENTIALon 17-65-6225Jddrkvuuu (Bld) [#/Vol]0.06 10*3/uL0.00 - 0.20 K/uLMetroHealthBasophils/100 WBC (Bld)0.7 % <=1.9MetroHealthEosinophils (Bld) [#/Vol]0.08 10*3/uL0.00 - 0.70 K/uLMetroHealth Eosinophils/100 WBC (Bld)0.9 %0.1 - 4.0 %MetroHealthErythrocyte distribution width (RBC) [Ratio]25.4 %High11.5 - 14.5 %[facility]roHealthHematocrit (Bld) [Volume fraction]18.7 %Critically low41.0 - 53.0 %[facility]HealthHemoglobin (Bld) [Mass/Vol] 6.5 g/dLCritically low13.9 - 16.3 g/dLMetroHealthInterpretation and review of laboratory resultsAbnormalMetroHealthLymphocytes (Bld) [#/Vol]1.66 10*3/uL1.00 - 4.80 K/uLMetroHealthLymphocytes/100 WBC (Bld)20.7 %Low24.0 - 44.0 %[facility] MCH (RBC) [Entitic mass]38.1 izPozs96.0 - 34.0 pgMetroHealthMCHC (RBC) [Mass/Vol]35.0 g/dL32.0 - 35.9 g/dLMetroHealthMCV (RBC) [Entitic vol]109 fLHigh 80 - 100 fLMetroHealthMonocyte distribution width Auto (Bld) [Entitic vol] MetroHealthMonocytes (Bld) [#/Vol]0.91 10*3/uL0.20 - 1.00 K/uLMetroHealth Monocytes/100 WBC (Bld)11.3 %High2.0 - 11.0 %MetroHealthNeutrophils (Bld) [#/Vol]5.32 10*3/uL1.50 - 8.00 K/uLMetroHealthNeutrophils/100 WBC (Bld)66.4 % 31.0 - 76.0 %[facility]HealthPlatelet mean volume (Bld) [Entitic vol]8.7 fL7.5 - 11.2 fLMetroHealthPlatelets (Bld) [#/Vol]59 10*3/lIZhk810 - 400 K/uLMetroHealthRBC (Bld) [#/Vol]1.72 10*6/uLLowMetroHealthWBC (Bld) [#/Vol]8.0 10*3/uL4.5 - 11.5 K/uLMetroHealthGLUCOSE, FINGERSTICK-IN OFFICEon 56-66-7876Mtlubew [Mass/Vol]140 mg/bZBjxp89 - 110 mg/dLMetroHealthInterpretation and review of laboratory resultsAbnormalMetroHealthMetroHealthGlucose [Mass/Vol]157 mg/gZTnfn85 - 110 mg/dLMetroHealthInterpretation and review of laboratory resultsAbnormal MetroHealthMetroHealthHAPTOGLOBINon 58-57-4867Weltjcimdmr [Mass/Vol]mg/dLLow36 - 220 mg/dLMetroHealthInterpretation and review of laboratory resultsAbnormal MetroHealthMetroHealthHEPATIC FUNCTION PANELon 35-45-8213Evpknwo [Mass/Vol]2.6 g/dLLow3.4 - 5.1 g/dLMetroHealthALP [Catalytic activity/Vol]148 U/LMetroHealth ALT [Catalytic activity/Vol]61 U/LHighMetroHealthAST [Catalytic activity/Vol]131 U/LHighMetroHealthBilirubin [Mass/Vol]11.1 mg/dLHigh0.1 - 1.5 mg/dLMetroHealth Bilirubin.direct [Mass/Vol]2.10 mg/dLHigh0.10 - 0.30 mg/dLMetroHealthProtein [Mass/Vol]6.4 g/dL6.2 - 8.3 g/dLMetroHealthLDHon 16-38-6819LBH [Catalytic activity/Vol]458 U/LHighMetroHealthMANUAL DIFF AND MORPHon 01-12-2022 Anisocytosis Ql (Bld)ModerateMetroHealthBand form neutrophils/100 WBC (Bld)3 % <=10MetroHealthBands #0.23 K/uLHigh<0.01MetroHealthBurr cells LM Ql (Bld)Few MetroHealthCells Counted Total (Bld) [#]100 {cells}MetroHealthLymphocytes (Bld) [#/Vol]0.62 10*3/uLLow1.00 - 4.80 K/uLMetroHealthLymphocytes/100 WBC (Bld)8.0 % Low24.0 - 44.0 %MetroHealthMetamyelocyte #0.16 K/uLHigh<0.01[facility] Metamyelocytes/100 WBC (Bld)2 %High<0MetroHealthMonocytes (Bld) [#/Vol]0.94 10*3/uL0.20 - 1.00 K/uLMetroHealthMonocytes/100 WBC (Bld)12.0 %High2.0 - 11.0 % MetroHealthMyelocyte #0.08 K/uLHigh<0.53RudpnVofhgvOaereewcmp3 %High<0 MetroHealthNeutrophils (Bld) [#/Vol]5.77 10*3/uL1.50 - 8.00 K/uLMetroHealth Neutrophils/100 WBC (Bld)74.0 %31.0 - 76.0 %MetroHealthNucleated RBC/100 WBC (Bld) [Ratio]5 %MetroHealthNucleated RBCs5 K/uLMetroHealthOvalocytes LM Ql (Bld) FewMetroHealthPolychromasia LM Ql (Bld)SlightMetroHealthAnisocytosis Ql (Bld) MarkedMetroHealthBurr cells LM Ql (Bld)FewMetroHealthCells Counted Total (Bld) [#]MetroHealthMacrocytes Ql (Bld)SlightMetroHealthPolychromasia LM Ql (Bld) SlightMetroHealthTarget cells LM Ql (Bld)FewMetroHealthNo Panel Information Ordered By: Tayla Strickland on 30-28-8602Jwmzsgruhijeke and review of laboratory resultsAbnormalMetroHealthMetroHealthNo Panel Informationon 08-91-1739QkpblKoxonqQwvrnbqnalcxag and review of laboratory resultsAbnormal MetroHealthMetroHealthPROTHROMBIN TIME AND INRon 73-89-5636LYX Coag (PPP) [Relative time]2.12 {INR}HighMetroHealthInterpretation and review of laboratory resultsAbnormalMetroHealthPT Coag (PPP) [Time]23.8 sHighMetroHealthMetroHealth ABO RH TYPEon 57-34-8805VozjvFwfisfCtmol metabolic 2000 panelon 32-65-6631Bkdpe gap [Moles/Vol]10 mmol/LMetroHealthCalcium [Mass/Vol]8.0 mg/dLLow8.4 - 10.4 mg/dLMetroHealthChloride [Moles/Vol]101 mmol/L97 - 111 mmol/LMetroHealthCO2 [Moles/Vol]25 mmol/L21 - 30 mmol/LMetroHealthCreatinine [Mass/Vol]0.43 mg/dLLow 0.80 - 1.30 mg/dLMetroHealthGFR/1.73 sq M.predicted MDRD (S/P/Bld) [Vol rate/Area]141 mL/min/{1.73_m2}>=60 mL/min/1.73sqmMetroHealthGlucose [Mass/Vol] 149 mg/xGQaiq00 - 110 mg/dLMetroHealthPotassium [Moles/Vol]3.4 mmol/L3.3 - 5.3 mmol/LMetroHealthSodium [Moles/Vol]133 mmol/VOkx619 - 148 mmol/LMetroHealthUrea nitrogen [Mass/Vol]5 mg/dLLow8 - 22 mg/dLMetroHealthCBC WITH DIFFERENTIALOrdered By: Nasrin Barr on 13-74-1562Enjbnrbqdnq distribution width (RBC) [Ratio] 24.8 %High11.5 - 14.5 %MetroHealthHematocrit (Bld) [Volume fraction]17.6 % Critically low41.0 - 53.0 %MetroHealthHemoglobin (Bld) [Mass/Vol]6.2 g/dL Critically low13.9 - 16.3 g/dLMetroHealthMCH (RBC) [Entitic mass]38.4 udPier59.0 - 34.0 pgMetroHealthMCHC (RBC) [Mass/Vol]35.2 g/dL32.0 - 35.9 g/dLMetroHealthMCV (RBC) [Entitic vol]109 dVQadm96 - 100 fLMetroHealthMonocyte distribution width Auto (Bld) [Entitic vol]MetroHealthPlatelet mean volume (Bld) [Entitic vol]9.4 fL7.5 - 11.2 fLMetroHealthPlatelets (Bld) [#/Vol]88 10*3/hAInk270 - 400 K/uL [facility]HealthRBC (Bld) [#/Vol]1.61 10*6/uLLowMetroHealthWBC (Bld) [#/Vol]7.2 10*3/uL4.5 - 11.5 K/uLMetroHealthCBC WITH DIFFERENTIALon 80-11-8439Adclyxgfq (Bld) [#/Vol]0.04 10*3/uL0.00 - 0.20 K/uLMetroHealthBasophils/100 WBC (Bld)0.5 % <=1.9MetroHealthEosinophils (Bld) [#/Vol]0.02 10*3/uL0.00 - 0.70 K/uLMetroHealth Eosinophils/100 WBC (Bld)0.2 %0.1 - 4.0 %MetroHealthErythrocyte distribution width (RBC) [Ratio]23.6 %High11.5 - 14.5 %MetroHealthHematocrit (Bld) [Volume fraction]16.7 %Critically low41.0 - 53.0 %[facility]HealthHemoglobin (Bld) [Mass/Vol] 5.9 g/dLCritically low13.9 - 16.3 g/dLMetroHealthInterpretation and review of laboratory resultsAbnormalMetroHealthLymphocytes (Bld) [#/Vol]0.93 10*3/uLLow 1.00 - 4.80 K/uLMetroHealthLymphocytes/100 WBC (Bld)12.7 %Low24.0 - 44.0 % [facility]HealthMCH (RBC) [Entitic mass]38.2 hcXanv62.0 - 34.0 pgMetroHealthMCHC (RBC) [Mass/Vol]35.3 g/dL32.0 - 35.9 g/dLMetroHealthMCV (RBC) [Entitic vol]108 lVOkkp40 - 100 fLMetroHealthMonocyte distribution width Auto (Bld) [Entitic vol] MetroHealthMonocytes (Bld) [#/Vol]0.96 10*3/uL0.20 - 1.00 K/uLMetroHealth Monocytes/100 WBC (Bld)13.3 %High2.0 - 11.0 %MetroHealthNeutrophils (Bld) [#/Vol]5.33 10*3/uL1.50 - 8.00 K/uLMetroHealthNeutrophils/100 WBC (Bld)73.3 % 31.0 - 76.0 %MetroHealthPlatelet mean volume (Bld) [Entitic vol]8.4 fL7.5 - 11.2 fLMetroHealthPlatelets (Bld) [#/Vol]62 10*3/jFWog718 - 400 K/uLMetroHealthRBC (Bld) [#/Vol]1.54 10*6/uLLowMetroHealthWBC (Bld) [#/Vol]7.3 10*3/uL4.5 - 11.5 K/uLMetroHealthGLUCOSE, FINGERSTICK-IN OFFICEon 20-08-3410Jnvylpy [Mass/Vol]167 mg/hCLldh58 - 110 mg/dLMetroHealthInterpretation and review of laboratory resultsAbnormalMetroHealthMetroHealthHAPTOGLOBINon 81-43-8466Svnstqzazke [Mass/Vol]mg/dLLow36 - 220 mg/dLMetroHealthInterpretation and review of laboratory resultsAbnormalMetroHealthMetroHealthHEPATIC FUNCTION PANELon 09-57-7827Olxrnlp [Mass/Vol]2.6 g/dLLow3.4 - 5.1 g/dLMetroHealthALP [Catalytic activity/Vol]95 U/LMetroHealthALT [Catalytic activity/Vol]57 U/LHighMetroHealth AST [Catalytic activity/Vol]143 U/LHighMetroHealthBilirubin [Mass/Vol]11.4 mg/dL High0.1 - 1.5 mg/dLMetroHealthBilirubin.direct [Mass/Vol]2.20 mg/dLHigh0.10 - 0.30 mg/dLMetroHealthProtein [Mass/Vol]5.7 g/dLLow6.2 - 8.3 g/dLMetroHealthLDHon 59-49-2427PLS [Catalytic activity/Vol]428 U/LHighMetroHealthLaboratory - Blood bankon 41-33-2744JHS and Rh group Nom (Bld)Blood group A Rh(D) positive MetroHealthMAGNESIUMon 01-34-3369Hiwydfkpsmnpvx and review of laboratory results NormalMetroHealthMagnesium [Mass/Vol]2.0 mg/dL1.6 - 2.8 mg/dLMetroHealth MetroHealthMANUAL DIFF AND MORPHon 77-97-8116Eiot form neutrophils/100 WBC (Bld) 3 %<=10MetroHealthBands #0.22 K/uLHigh<0.01MetroHealthBurr cells LM Ql (Bld)Few MetroHealthCells Counted Total (Bld) [#]100 {cells}MetroHealthEosinophils (Bld) [#/Vol]0.14 10*3/uL0.00 - 0.70 K/uLMetroHealthEosinophils/100 WBC (Bld)2.0 %0.1 - 4.0 %MetroHealthLymphocytes (Bld) [#/Vol]0.72 10*3/uLLow1.00 - 4.80 K/uL MetroHealthLymphocytes/100 WBC (Bld)10.0 %Low24.0 - 44.0 %MetroHealthMacrocytes Ql (Bld)MarkedMetroHealthMonocytes (Bld) [#/Vol]0.50 10*3/uL0.20 - 1.00 K/uL MetroHealthMonocytes/100 WBC (Bld)7.0 %2.0 - 11.0 %MetroHealthNeutrophils (Bld) [#/Vol]5.62 10*3/uL1.50 - 8.00 K/uLMetroHealthNeutrophils/100 WBC (Bld)78.0 % High31.0 - 76.0 %MetroHealthOvalocytes LM Ql (Bld)FewMetroHealthPlatelets Large LM Ql (Bld)PresentMetroHealthPolychromasia LM Ql (Bld)ModerateMetroHealthTarget cells LM Ql (Bld)FewMetroHealthAnisocytosis Ql (Bld)MarkedMetroHealthBurr cells LM Ql (Bld)FewMetroHealthCells Counted Total (Bld) [#]MetroHealthMacrocytes Ql (Bld)SlightMetroHealthPolychromasia LM Ql (Bld)SlightMetroHealth RBC.hypochromic/100 RBC Auto (Bld)SlightMetroHealthSchistocytes LM Ql (Bld)Few MetroHealthTarget cells LM Ql (Bld)FewMetroHealthNo Panel InformationOrdered By: Nasrin Barr on 29-49-3028Rdpaqgeaopxzrh and review of laboratory results AbnormalMetroHealthMetroHealthNo Panel Informationon 26-51-1342BegtcUtvoql Interpretation and review of laboratory resultsAbnormalMetroHealthMetroHealth PROTHROMBIN TIME AND INRon 64-45-5252ZVS Coag (PPP) [Relative time]2.16 {INR} HighMetroHealthInterpretation and review of laboratory resultsAbnormal MetroHealthPT Coag (PPP) [Time]24.2 sHighMetroHealthMetroHealthTYPE AND SCREENon 31-62-4289DWQ and Rh group Nom (Bld)Blood group A Rh(D) positiveMetroHealthABO and Rh group Nom (Bld)No Previous ResultsMetroHealthBlood group antibody screen QlNegativeMetroHealthMetroHealthBasic metabolic 2000 panelon 48-27-3997Nxjij gap [Moles/Vol]17 mmol/LMetroHealthCalcium [Mass/Vol]8.6 mg/dL8.4 - 10.4 mg/dL MetroHealthChloride [Moles/Vol]99 mmol/L97 - 111 mmol/LMetroHealthCO2 [Moles/Vol]22 mmol/L21 - 30 mmol/LMetroHealthCreatinine [Mass/Vol]0.60 mg/dLLow 0.80 - 1.30 mg/dLMetroHealthGFR/1.73 sq M.predicted MDRD (S/P/Bld) [Vol rate/Area]128 mL/min/{1.73_m2}>=60 mL/min/1.73sqmMetroHealthGlucose [Mass/Vol] 165 mg/aENjpw40 - 110 mg/dLMetroHealthInterpretation and review of laboratory resultsAbnormalMetroHealthPotassium [Moles/Vol]3.5 mmol/L3.3 - 5.3 mmol/L [facility]HealthSodium [Moles/Vol]134 mmol/HLds871 - 148 mmol/LMetroHealthUrea nitrogen [Mass/Vol]4 mg/dLLow8 - 22 mg/dLMetroHealthAnion gap [Moles/Vol]9 mmol/LLowMetroHealthCalcium [Mass/Vol]8.4 mg/dL8.4 - 10.4 mg/dLMetroHealth Chloride [Moles/Vol]101 mmol/L97 - 111 mmol/LMetroHealthCO2 [Moles/Vol]27 mmol/L 21 - 30 mmol/LMetroHealthCreatinine [Mass/Vol]0.44 mg/dLLow0.80 - 1.30 mg/dL [facility]HealthGFR/1.73 sq M.predicted MDRD (S/P/Bld) [Vol rate/Area]140 mL/min/{1.73_m2}>=60 mL/min/1.73sqmMetroHealthGlucose [Mass/Vol]172 mg/hNHaam03 - 110 mg/dLMetroHealthPotassium [Moles/Vol]4.0 mmol/L3.3 - 5.3 mmol/LMetroHealth Sodium [Moles/Vol]133 mmol/FSjs909 - 148 mmol/LMetroHealthUrea nitrogen [Mass/Vol]9 mg/dL8 - 22 mg/dLMetroHealthCBC WITH DIFFERENTIALOrdered By: Meka Morales on 97-95-2769Nfzgnilnk (Bld) [#/Vol]0.06 10*3/uL0.00 - 0.20 K/uL [facility]HealthBasophils/100 WBC (Bld)1.2 %<=1.9MetroHealthEosinophils (Bld) [#/Vol] 0.01 10*3/uL0.00 - 0.70 K/uLMetroHealthEosinophils/100 WBC (Bld)0.1 %0.1 - 4.0 % MetroHealthErythrocyte distribution width (RBC) [Ratio]23.8 %High11.5 - 14.5 % MetroHealthHematocrit (Bld) [Volume fraction]19.1 %Critically low41.0 - 53.0 % MetroHealthHemoglobin (Bld) [Mass/Vol]6.8 g/dLCritically low13.9 - 16.3 g/dL MetroHealthInterpretation and review of laboratory resultsAbnormalMetroHealth Lymphocytes (Bld) [#/Vol]0.69 10*3/uLLow1.00 - 4.80 K/uLMetroHealth Lymphocytes/100 WBC (Bld)12.7 %Low24.0 - 44.0 %MetroHealthMCH (RBC) [Entitic mass]37.9 mtSnpm59.0 - 34.0 pgMetroHealthMCHC (RBC) [Mass/Vol]35.5 g/dL32.0 - 35.9 g/dLMetroHealthMCV (RBC) [Entitic vol]107 fTNsnb69 - 100 fLMetroHealth Monocyte distribution width Auto (Bld) [Entitic vol]MetroHealthMonocytes (Bld) [#/Vol]0.57 10*3/uL0.20 - 1.00 K/uLMetroHealthMonocytes/100 WBC (Bld)10.6 %2.0 - 11.0 %MetroHealthNeutrophils (Bld) [#/Vol]4.07 10*3/uL1.50 - 8.00 K/uL MetroHealthNeutrophils/100 WBC (Bld)75.3 %31.0 - 76.0 %MetroHealthPlatelet mean volume (Bld) [Entitic vol]9.8 fL7.5 - 11.2 fLMetroHealthPlatelets (Bld) [#/Vol] 93 10*3/dDXpy156 - 400 K/uLMetroHealthRBC (Bld) [#/Vol]1.79 10*6/uLLow MetroHealthWBC (Bld) [#/Vol]5.4 10*3/uL4.5 - 11.5 K/uLMetroHealthCBC WITH DIFFERENTIALon 72-13-4361Vnmyolsvn (Bld) [#/Vol]0.07 10*3/uL0.00 - 0.20 K/uL [facility]HealthBasophils/100 WBC (Bld)1.4 %<=1.9MetroHealthEosinophils (Bld) [#/Vol] 0.03 10*3/uL0.00 - 0.70 K/uLMetroHealthEosinophils/100 WBC (Bld)0.6 %0.1 - 4.0 % MetroHealthErythrocyte distribution width (RBC) [Ratio]23.4 %High11.5 - 14.5 % MetroHealthHematocrit (Bld) [Volume fraction]19.2 %Critically low41.0 - 53.0 % MetroHealthHemoglobin (Bld) [Mass/Vol]6.8 g/dLCritically low13.9 - 16.3 g/dL MetroHealthInterpretation and review of laboratory resultsAbnormalMetroHealth Lymphocytes (Bld) [#/Vol]0.72 10*3/uLLow1.00 - 4.80 K/uLMetroHealth Lymphocytes/100 WBC (Bld)15.4 %Low24.0 - 44.0 %MetroHealthMCH (RBC) [Entitic mass]37.5 llZtlo86.0 - 34.0 pgMetroHealthMCHC (RBC) [Mass/Vol]35.3 g/dL32.0 - 35.9 g/dLMetroHealthMCV (RBC) [Entitic vol]106 aIZbhg88 - 100 fLMetroHealth Monocyte distribution width Auto (Bld) [Entitic vol]MetroHealthMonocytes (Bld) [#/Vol]0.45 10*3/uL0.20 - 1.00 K/uLMetroHealthMonocytes/100 WBC (Bld)9.7 %2.0 - 11.0 %MetroHealthNeutrophils (Bld) [#/Vol]3.40 10*3/uL1.50 - 8.00 K/uL MetroHealthNeutrophils/100 WBC (Bld)72.9 %31.0 - 76.0 %MetroHealthPlatelet mean volume (Bld) [Entitic vol]8.6 fL7.5 - 11.2 fLMetroHealthPlatelets (Bld) [#/Vol] 58 10*3/qTAji074 - 400 K/uLMetroHealthRBC (Bld) [#/Vol]1.80 10*6/uLLow MetroHealthWBC (Bld) [#/Vol]4.7 10*3/uL4.5 - 11.5 K/uLMetroHealthCREATINE KINASE on 88-07-2020ZY [Catalytic activity/Vol]1073 U/LHighMetroHealthD-DIMEROrdered By: Gabriella Hernandez on 16-76-3086Xpdehl D-dimer DDU (PPP) [Mass/Vol]>5000High<230 ng/mL DDUMetroHealthInterpretation and review of laboratory resultsAbnormal MetroHealthMetroHealthMetroHealthEKG 12 LEAD - PERFORMon 49-90-9227Oxgseaqqo MetroHealthP wave Atrium by GNY19BZHLlhsqVzsobeV wave qmtz32tnkkktqVfaomHbfeisV- R Pskezopd447 msMetroHealthQ-T msMetroHealthQ-T interval corrected 411 msMetroHealthQRS qjjz75ntjamjaBrdsvQtthoiXQF wfzfntfo03 msMetroHealthT wave ghen67rdohkphVzhvsDltykaRkiehKcjcflEULVWNNDQLCad 77-55-2165Pkfqeeqbgcr [Mass/Vol]mg/dLLow36 - 220 mg/dLMetroHealthInterpretation and review of laboratory resultsAbnormalMetroHealthMetroHealthHEPATIC FUNCTION PANELon 20-91-3148Imudupr [Mass/Vol]2.7 g/dLLow3.4 - 5.1 g/dLMetroHealthALP [Catalytic activity/Vol]87 U/LMetroHealthALT [Catalytic activity/Vol]54 U/LHighMetroHealth AST [Catalytic activity/Vol]147 U/LHighMetroHealthBilirubin [Mass/Vol]11.1 mg/dL High0.1 - 1.5 mg/dLMetroHealthBilirubin.direct [Mass/Vol]2.60 mg/dLHigh0.10 - 0.30 mg/dLMetroHealthProtein [Mass/Vol]6.0 g/dLLow6.2 - 8.3 g/dLMetroHealthLDH Ordered By: Jarrod Paez on 60-26-8043Ulqprxwooofrci and review of laboratory resultsAbnormalMetroHealthLDH [Catalytic activity/Vol]378 U/LHighMetroHealth MetroHealthLaboratory - Microbiology and Antimicrobial susceptibilityon 65-88-3333HPB RNA ANGIE+probe Ql (Unsp spec)NegativeNegativeMetroHealthLaboratory - Specimen informationon 62-68-8997Ohfsrrje source Nom (Unsp spec)Negative NegativeMetroHealthMAGNESIUMon 30-24-6599Bpceomralayrda and review of laboratory resultsNormalMetroHealthMagnesium [Mass/Vol]1.7 mg/dL1.6 - 2.8 mg/dLMetroHealth MANUAL DIFF AND MORPHon 52-94-8364Lpupcmojyqkw LM Ql (Bld)FewMetroHealthBurr cells LM Ql (Bld)ModerateMetroHealthCells Counted Total (Bld) [#][facility] Macrocytes Ql (Bld)SlightMetroHealthOvalocytes LM Ql (Bld)FewMetroHealth Schistocytes LM Ql (Bld)FewMetroHealthAcanthocytes LM Ql (Bld)FewMetroHealthBurr cells LM Ql (Bld)FewMetroHealthCells Counted Total (Bld) [#][facility] Macrocytes Ql (Bld)SlightMetroHealthPolychromasia LM Ql (Bld)SlightMetroHealth Schistocytes LM Ql (Bld)FewMetroHealthTarget cells LM Ql (Bld)FewMetroHealthNo Panel Informationon 75-69-8162UpevlCodwykDlsljgmiqdskgu and review of laboratory resultsAbnormalMetroHealthMetroHealthMetroHealthNo Panel InformationOrdered By: Meka Morales on 79-61-4123NqhwdWqccouQRBTRDB THROMBOPLASTIN TIMEon 20-40-3426vVSL Coag (Bld) [Time]29 sMetroHealthInterpretation and review of laboratory resultsNormalMetroHealthMetroHealthPROTHROMBIN TIME AND INRon 37-99-6893SJO Coag (PPP) [Relative time]1.79 {INR}HighMetroHealthInterpretation and review of laboratory resultsAbnormalMetroHealthPT Coag (PPP) [Time]20.1 s HighMetroHealthMetroHealthRED BLOOD CELL COMPONENTon 43-86-1313OT Order Item Product status info to followMetroHealthMetroHealthRESPIRATORY VIRUS PANEL, PCR on 78-70-1773Jxvcdvkfyq DNA ANGIE+probe Ql (Unsp spec)NegativeNegativeMetroHealth C. pneumoniae DNA ANGIE+probe Ql (Unsp spec)NegativeNegativeMetroHealthFLUAV H1 RNA ANGIE+probe Ql (Unsp spec)NegativeNegativeMetroHealthFLUAV H3 RNA ANGIE+probe Ql (Unsp spec)NegativeNegativeMetroHealthFLUAV RNA ANGIE+probe Ql (Unsp spec) NegativeNegativeMetroHealthFLUBV RNA ANGIE+probe Ql (Unsp spec)NegativeNegative MetroHealthHCoV HKU1 RNA ANGIE+probe Ql (Unsp spec)NegativeNegativeMetroHealthHCoV NL63 RNA ANGIE+probe Ql (Unsp spec)NegativeNegativeMetroHealthhMPV RNA ANGIE+probe Ql (Unsp spec)NegativeNegativeMetroHealthInterpretation and review of laboratory resultsNormalMetroHealthM. pneumoniae DNA ANGIE+probe Ql (Unsp spec)Negative NegativeMetroHealthParainfluenza virus 1 RNA ANGIE+probe Ql (Unsp spec)Negative NegativeMetroHealthParainfluenza virus 2 RNA ANGIE+probe Ql (Unsp spec)Negative NegativeMetroHealthParainfluenza virus 3 RNA ANGIE+probe Ql (Unsp spec)Negative NegativeMetroHealthParainfluenza virus 4 RNA ANGIE+probe Ql (Unsp spec)Negative NegativeMetroHealthRhinovirus RNA ANGIE+probe Nom (Unsp spec)NegativeNegative MetroHealthMetroHealthUS HEP PORT SPLEN VEIN + DOPPLERon 41-51-4668BWMTCYUCP MetroHealthMetroHealthRadiology Study observation (narrative)MetroHealthUS SPLEENon 85-58-1046WPPOCSDLMEpycsEeqbygRthxjchls Study observation (narrative) MetroHealthUS SPLEENOrdered By: Enrique Basurto on 76-60-3640CtccrAivwai Work Phone: aMMONIAon 84-57-0317Yrtvssf (P) [Moles/Vol]74 umol/L High11 - 35 umol/LMetroHealthInterpretation and review of laboratory results AbnormalMetroHealthMetroHealthAUTOIMMUNE MULTIPLEX PANELon 01-09-2022 Interpretation and review of laboratory resultsNormalMetroHealthNuclear Ab IA Ql (S)NegativeNegativeMetroHealthMetroHealthMetroHealthBasic metabolic 2000 panel on 64-59-3777Finyl gap [Moles/Vol]10 mmol/LMetroHealthCalcium [Mass/Vol]8.1 mg/dLLow8.4 - 10.4 mg/dLMetroHealthChloride [Moles/Vol]100 mmol/L97 - 111 mmol/L MetroHealthCO2 [Moles/Vol]27 mmol/L21 - 30 mmol/LMetroHealthCreatinine [Mass/Vol]0.41 mg/dLLow0.80 - 1.30 mg/dLMetroHealthGFR/1.73 sq M.predicted MDRD (S/P/Bld) [Vol rate/Area]143 mL/min/{1.73_m2}>=60 mL/min/1.73sqmMetroHealth Glucose [Mass/Vol]142 mg/kSPzoy94 - 110 mg/dLMetroHealthPotassium [Moles/Vol]4.0 mmol/L3.3 - 5.3 mmol/LMetroHealthSodium [Moles/Vol]133 mmol/HEsu487 - 148 mmol/LMetroHealthUrea nitrogen [Mass/Vol]7 mg/dLLow8 - 22 mg/dLMetroHealthCBC WITH DIFFERENTIALOrdered By: Norris Billings on [id number] (Bld) [#/Vol] 0.03 10*3/uL0.00 - 0.20 K/uLMetroHealthBasophils/100 WBC (Bld)0.7 %<=1.9 MetroHealthEosinophils (Bld) [#/Vol]0.05 10*3/uL0.00 - 0.70 K/uLMetroHealth Eosinophils/100 WBC (Bld)1.5 %0.1 - 4.0 %MetroHealthErythrocyte distribution width (RBC) [Ratio]23.7 %High11.5 - 14.5 %MetroHealthHematocrit (Bld) [Volume fraction]18.4 %Critically low41.0 - 53.0 %[facility]roHealthHemoglobin (Bld) [Mass/Vol] 6.4 g/dLCritically low13.9 - 16.3 g/dLMetroHealthInterpretation and review of laboratory resultsAbnormalMetroHealthLymphocytes (Bld) [#/Vol]0.71 10*3/uLLow 1.00 - 4.80 K/uLMetroHealthLymphocytes/100 WBC (Bld)19.4 %Low24.0 - 44.0 % MetroHealthMCH (RBC) [Entitic mass]36.5 gpTsfl09.0 - 34.0 pgMetroHealthMCHC (RBC) [Mass/Vol]34.9 g/dL32.0 - 35.9 g/dLMetroHealthMCV (RBC) [Entitic vol]105 uAMcwi94 - 100 fLMetroHealthMonocyte distribution width Auto (Bld) [Entitic vol] MetroHealthMonocytes (Bld) [#/Vol]0.50 10*3/uL0.20 - 1.00 K/uLMetroHealth Monocytes/100 WBC (Bld)13.7 %High2.0 - 11.0 %MetroHealthNeutrophils (Bld) [#/Vol]2.37 10*3/uL1.50 - 8.00 K/uLMetroHealthNeutrophils/100 WBC (Bld)64.8 % 31.0 - 76.0 %MetroHealthPlatelet mean volume (Bld) [Entitic vol]8.2 fL7.5 - 11.2 fLMetroHealthPlatelets (Bld) [#/Vol]56 10*3/hNIyr954 - 400 K/uLMetroHealthRBC (Bld) [#/Vol]1.76 10*6/uLLowMetroHealthWBC (Bld) [#/Vol]3.7 10*3/uLLow4.5 - 11.5 K/uLMetroHealthCBC WITH DIFFERENTIALOrdered By: Mi Alcazar on 01-09-2022 Basophils (Bld) [#/Vol]0.03 10*3/uL0.00 - 0.20 K/uLMetroHealthBasophils/100 WBC (Bld)0.9 %<=1.9MetroHealthEosinophils (Bld) [#/Vol]0.05 10*3/uL0.00 - 0.70 K/uL MetroHealthEosinophils/100 WBC (Bld)1.4 %0.1 - 4.0 %MetroHealthErythrocyte distribution width (RBC) [Ratio]23.3 %High11.5 - 14.5 %[facility]roHealthHematocrit (Bld) [Volume fraction]19.0 %Critically low41.0 - 53.0 %[facility]HealthHemoglobin (Bld) [Mass/Vol]6.7 g/dLCritically low13.9 - 16.3 g/dLMetroHealthInterpretation and review of laboratory resultsAbnormalMetroHealthLymphocytes (Bld) [#/Vol]0.76 10*3/uLLow1.00 - 4.80 K/uLMetroHealthLymphocytes/100 WBC (Bld)20.2 %Low24.0 - 44.0 %MetroHealthMCH (RBC) [Entitic mass]36.4 zkCswy52.0 - 34.0 pgMetroHealth MCHC (RBC) [Mass/Vol]35.2 g/dL32.0 - 35.9 g/dLMetroHealthMCV (RBC) [Entitic vol] 103 aHSjbc61 - 100 fLMetroHealthMonocyte distribution width Auto (Bld) [Entitic vol]MetroHealthMonocytes (Bld) [#/Vol]0.47 10*3/uL0.20 - 1.00 K/uLMetroHealth Monocytes/100 WBC (Bld)12.5 %High2.0 - 11.0 %MetroHealthNeutrophils (Bld) [#/Vol]2.45 10*3/uL1.50 - 8.00 K/uLMetroHealthNeutrophils/100 WBC (Bld)65.0 % 31.0 - 76.0 %MetroHealthPlatelet mean volume (Bld) [Entitic vol]8.1 fL7.5 - 11.2 fLMetroHealthPlatelets (Bld) [#/Vol]52 10*3/uXGkk393 - 400 K/uLMetroHealthRBC (Bld) [#/Vol]1.84 10*6/uLLowMetroHealthWBC (Bld) [#/Vol]3.8 10*3/uLLow4.5 - 11.5 K/uLMetroHealthCREATINE KINASEon [id number] [Catalytic activity/Vol]892 U/L HighMetroHealthInterpretation and review of laboratory resultsAbnormal MetroHealthMetroHealthHEPATIC FUNCTION PANELon 05-19-8966Aocchyq [Mass/Vol]2.7 g/dLLow3.4 - 5.1 g/dLMetroHealthALP [Catalytic activity/Vol]92 U/LMetroHealthALT [Catalytic activity/Vol]47 U/LHighMetroHealthAST [Catalytic activity/Vol]124 U/L HighMetroHealthBilirubin [Mass/Vol]11.2 mg/dLHigh0.1 - 1.5 mg/dLMetroHealth Bilirubin.direct [Mass/Vol]2.50 mg/dLHigh0.10 - 0.30 mg/dLMetroHealthProtein [Mass/Vol]6.0 g/dLLow6.2 - 8.3 g/dLMetroHealthHIV 1 and 2 Ab and HIV 1 p24 Ag panel IAon 32-30-6720YBD 1+2 Ab+HIV1 p24 Ag IA CsEmd-CwtddtfuXjk-Jnbmtvin MetroHealthInterpretation and review of laboratory resultsNormalMetroHealth MetroHealthMetroHealthLipid 1996 panelon [id number] [Mass/Vol]341 mg/dLHigh<200MetroHealthCholesterol in HDL [Mass/Vol]30 mg/dLLow>44[facility] Cholesterol in LDL [Mass/Vol]277 mg/dLHigh<111MetroHealthCholesterol in LDL/Cholesterol in HDL [Mass ratio]9.23 {ratio}High<3.57MetroHealthCholesterol non HDL [Mass/Vol]311 mg/dLHigh<130MetroHealthCholesterol.total/Cholesterol in HDL [Mass ratio]11.37 {ratio}High<5.00MetroHealthInterpretation and review of laboratory resultsAbnormalMetroHealthTriglyceride [Mass/Vol]266 mg/dLHigh<151 MetroHealthMetroHealthMANUAL DIFF AND MORPHon 71-24-3402Bwsawymsufjh Ql (Bld) ModerateMetroHealthBurr cells LM Ql (Bld)FewMetroHealthCells Counted Total (Bld) [#]MetroHealthDacrocytes LM Ql (Bld)FewMetroHealthMacrocytes Ql (Bld)Slight MetroHealthOvalocytes LM Ql (Bld)ModerateMetroHealthPolychromasia LM Ql (Bld) SlightMetroHealthSchistocytes LM Ql (Bld)FewMetroHealthTarget cells LM Ql (Bld) FewMetroHealthAnisocytosis Ql (Bld)MarkedMetroHealthBurr cells LM Ql (Bld)Few MetroHealthCells Counted Total (Bld) [#]MetroHealthMacrocytes Ql (Bld)Slight MetroHealthOvalocytes LM Ql (Bld)ManyMetroHealthPolychromasia LM Ql (Bld)Slight MetroHealthRBC.hypochromic/100 RBC Auto (Bld)SlightMetroHealthSchistocytes LM Ql (Bld)FewMetroHealthTarget cells LM Ql (Bld)FewMetroHealthNo Panel Information Ordered By: Norris Billings on 82-99-3819VffleMgflplYr Panel InformationOrdered By: Mi Alcazar on 36-16-8157GdundAfvimzGy Panel Informationon 01-09-2022 Interpretation and review of laboratory resultsAbnormalMetroHealthMetroHealth PROTHROMBIN TIME AND INRon 69-13-2204FZW Coag (PPP) [Relative time]1.94 {INR} HighMetroHealthInterpretation and review of laboratory resultsAbnormal MetroHealthPT Coag (PPP) [Time]21.8 sHighMetroHealthMetroHealthRED BLOOD CELL COMPONENTon 58-60-0447LI Order ItemProduct status info to followMetroHealth MetroHealthTHYROXINE (T4), FREEon 97-10-4684Tcky T4 [Mass/Vol]0.88 ng/dL0.45 - 1.80 ng/dLMetroHealthInterpretation and review of laboratory resultsNormal MetroHealthMetroHealthXR ABDOMEN 1 VIEW APon 62-85-4006MDDRSBOYCFedinSzmlir Radiology Study observation (narrative)MetroHealthXR ABDOMEN 1 VIEW APOrdered By: Ulysses Omalley on 43-89-6974ScgbdZgkqyp Work Phone: aCETAMINOPHENon 23-50-9511Iyjoausmudcwk [Mass/Vol] ug/mL10 - 20 ug/mLMetroHealthInterpretation and review of laboratory results NormalMetroHealthMetroHealthANTIBODY ID ELUTED-LAB ONLYon 78-91-5325Irmet group antibody screen Elution QlNegativeMetroHealthMetroHealthBasic metabolic 2000 panelon 67-89-8992Eciuf gap [Moles/Vol]16 mmol/LMetroHealthCalcium [Mass/Vol]8.1 mg/dLLow8.4 - 10.4 mg/dLMetroHealthChloride [Moles/Vol]95 mmol/LLow97 - 111 mmol/LMetroHealthCO2 [Moles/Vol]22 mmol/L21 - 30 mmol/LMetroHealthCreatinine [Mass/Vol]0.44 mg/dLLow0.80 - 1.30 mg/dLMetroHealthGFR/1.73 sq M.predicted MDRD (S/P/Bld) [Vol rate/Area]140 mL/min/{1.73_m2}>=60 mL/min/1.73sqmMetroHealth Glucose [Mass/Vol]91 mg/dL68 - 110 mg/dLMetroHealthPotassium [Moles/Vol]3.7 mmol/L3.3 - 5.3 mmol/LMetroHealthSodium [Moles/Vol]129 mmol/ZKgr784 - 148 mmol/L MetroHealthUrea nitrogen [Mass/Vol]5 mg/dLLow8 - 22 mg/dLMetroHealthCBC WITH DIFFERENTIALOrdered By: Fiorella Cochran on 61-75-3203Agsxpbttf (Bld) [#/Vol]0.04 10*3/uL0.00 - 0.20 K/uLMetroHealthBasophils/100 WBC (Bld)0.7 %<=1.9[facility] Eosinophils (Bld) [#/Vol]0.10 10*3/uL0.00 - 0.70 K/uLMetroHealthEosinophils/100 WBC (Bld)1.9 %0.1 - 4.0 %MetroHealthErythrocyte distribution width (RBC) [Ratio] 24.0 %High11.5 - 14.5 %MetroHealthHematocrit (Bld) [Volume fraction]20.3 %Low 41.0 - 53.0 %MetroHealthHemoglobin (Bld) [Mass/Vol]7.3 g/dLLow13.9 - 16.3 g/dL MetroHealthInterpretation and review of laboratory resultsAbnormalMetroHealth Lymphocytes (Bld) [#/Vol]0.94 10*3/uLLow1.00 - 4.80 K/uLMetroHealth Lymphocytes/100 WBC (Bld)17.5 %Low24.0 - 44.0 %MetroHealthMCH (RBC) [Entitic mass]37.3 gaAana99.0 - 34.0 pgMetroHealthMCHC (RBC) [Mass/Vol]35.7 g/dL32.0 - 35.9 g/dLMetroHealthMCV (RBC) [Entitic vol]105 kUGdjk55 - 100 fLMetroHealth Monocyte distribution width Auto (Bld) [Entitic vol]MetroHealthMonocytes (Bld) [#/Vol]0.92 10*3/uL0.20 - 1.00 K/uLMetroHealthMonocytes/100 WBC (Bld)16.9 %High 2.0 - 11.0 %MetroHealthNeutrophils (Bld) [#/Vol]3.40 10*3/uL1.50 - 8.00 K/uL MetroHealthNeutrophils/100 WBC (Bld)63.0 %31.0 - 76.0 %MetroHealthPlatelet mean volume (Bld) [Entitic vol]8.4 fL7.5 - 11.2 fLMetroHealthPlatelets (Bld) [#/Vol] 52 10*3/pFNsf360 - 400 K/uLMetroHealthRBC (Bld) [#/Vol]1.94 10*6/uLLow MetroHealthWBC (Bld) [#/Vol]5.4 10*3/uL4.5 - 11.5 K/uLMetroHealthCBC WITH DIFFERENTIALOrdered By: Rafy Carr on 39-67-3093Apdzdrfjj (Bld) [#/Vol]0.04 10*3/uL0.00 - 0.20 K/uLMetroHealthBasophils/100 WBC (Bld)0.8 %<=1.9[facility]Health Eosinophils (Bld) [#/Vol]0.08 10*3/uL0.00 - 0.70 K/uLMetroHealthEosinophils/100 WBC (Bld)1.4 %0.1 - 4.0 %MetroHealthErythrocyte distribution width (RBC) [Ratio] 24.2 %High11.5 - 14.5 %MetroHealthHematocrit (Bld) [Volume fraction]20.1 %Low 41.0 - 53.0 %MetroHealthHemoglobin (Bld) [Mass/Vol]7.2 g/dLLow13.9 - 16.3 g/dL MetroHealthInterpretation and review of laboratory resultsAbnormalMetroHealth Lymphocytes (Bld) [#/Vol]1.01 10*3/uL1.00 - 4.80 K/uLMetroHealthLymphocytes/100 WBC (Bld)17.9 %Low24.0 - 44.0 %MetroHealthMCH (RBC) [Entitic mass]36.9 pgHigh 26.0 - 34.0 pgMetroHealthMCHC (RBC) [Mass/Vol]36.1 g/lVSiwa28.0 - 35.9 g/dL MetroHealthMCV (RBC) [Entitic vol]102 xCLesf99 - 100 fLMetroHealthMonocyte distribution width Auto (Bld) [Entitic vol]MetroHealthMonocytes (Bld) [#/Vol] 0.87 10*3/uL0.20 - 1.00 K/uLMetroHealthMonocytes/100 WBC (Bld)15.4 %High2.0 - 11.0 %MetroHealthNeutrophils (Bld) [#/Vol]3.65 10*3/uL1.50 - 8.00 K/uL MetroHealthNeutrophils/100 WBC (Bld)64.5 %31.0 - 76.0 %MetroHealthPlatelet mean volume (Bld) [Entitic vol]8.4 fL7.5 - 11.2 fLMetroHealthPlatelets (Bld) [#/Vol] 51 10*3/uXGmp065 - 400 K/uLMetroHealthRBC (Bld) [#/Vol]1.96 10*6/uLLow MetroHealthWBC (Bld) [#/Vol]5.7 10*3/uL4.5 - 11.5 K/uLMetroHealthCREATINE KINASE on 49-93-7863NI [Catalytic activity/Vol]777 U/LHighMetroHealthDIRECT ANTIGLOBULIN TESTon 09-14-5538Jidjps antiglobulin test.complement specific reagent Ql (RBC)NegativeMetroHealthDirect antiglobulin test.IgG specific reagent (RBC) [Interp]PositiveMetroHealthDirect antiglobulin test.poly specific reagent Ql (RBC)PositiveMetroHealthMetroHealthEKG 12 LEAD - PERFORMon 01-08-2022 DiagnosisMetroHealthP wave Atrium by HGM00BNPRpolkQrbrqvF wave lwwx92asalpqk MetroHealthP-R Oidkulir699 msMetroHealthQ-T doypncyg706 msMetroHealthQ-T interval padpcbxdj350 msMetroHealthQRS sbth67dimbngzSsuxnVavhpoYSK gvjoqbjr03 ms MetroHealthT wave uwfy23xcpcoozBznxaFyurhjQptokAzeesqTWJXCPAMjy 01-08-2022 Ferritin [Mass/Vol]829.1 ng/tOAzas92.5 - 300.0 ng/mLMetroHealthInterpretation and review of laboratory resultsAbnormalMetroHealthMetroHealthFOLIC ACIDon 04-33-3623Ycxrrg [Mass/Vol]13.9 ng/mL5.9 - 24.7 ng/mLMetroHealthInterpretation and review of laboratory resultsNormalMetroHealthMetroHealthGLUCOSE, FINGERSTICK-IN OFFICEon 74-08-5950Jcpxfdk [Mass/Vol]94 mg/dL68 - 110 mg/dL MetroHealthInterpretation and review of laboratory resultsNormalMetroHealth MetroHealthHAPTOGLOBINon 12-99-1616Iojdrkfhbkr [Mass/Vol]mg/dLLow36 - 220 mg/dL MetroHealthInterpretation and review of laboratory resultsAbnormalMetroHealth MetroHealthHCV Ab IA Qn (S)on 93-94-9997MVS Ab Ql (S)Non-ReactiveNonreactive MetroHealthInterpretation and review of laboratory resultsNormalMetroHealth MetroHealthHEPATIC FUNCTION PANELon 49-51-6187Zpbcryy [Mass/Vol]2.9 g/dLLow3.4 - 5.1 g/dLMetroHealthALP [Catalytic activity/Vol]121 U/LMetroHealthALT [Catalytic activity/Vol]50 U/LHighMetroHealthAST [Catalytic activity/Vol]129 U/LHigh MetroHealthBilirubin [Mass/Vol]11.1 mg/dLHigh0.1 - 1.5 mg/dLMetroHealth Bilirubin.direct [Mass/Vol]2.40 mg/dLHigh0.10 - 0.30 mg/dLMetroHealthProtein [Mass/Vol]6.4 g/dL6.2 - 8.3 g/dLMetroHealthHEPATITIS A IGM ANTIBODYon 01-08-2022 HAV IgM IA QlNon-ReactiveNonreactiveMetroHealthInterpretation and review of laboratory resultsNormalMetroHealthMetroHealthHEPATITIS A TOTAL ANTIBODYon 58-23-4721WTR Ab IA Ql (S)ReactiveAbnormalNonreactiveMetroHealthInterpretation and review of laboratory resultsAbnormalMetroHealthMetroHealthHEPATITIS B CORE ANTIBODYon 13-16-2749CLS core Ab Ql (S)Non-ReactiveNonreactiveMetroHealth Interpretation and review of laboratory resultsNormalMetroHealthMetroHealth HEPATITIS B SURFACE ANTIBODYon 44-70-1727HBG surface Ab IA Qnm[IU]/mLmIU/mL MetroHealthMetroHealthMetroHealthHEPATITIS B SURFACE ANTIGENon 18-67-1919QMT surface Ag Ql (S)Myj-GrryvjojZwb-VtykyfbyRvuweKklwxjSiwnujwsqrlthk and review of laboratory resultsNormalMetroHealthMetroHealthIRON AND TIBCon 01-08-2022 Interpretation and review of laboratory resultsAbnormalMetroHealthIron [Mass/Vol]145 ug/dL45 - 160 ug/dLMetroHealthIron binding capacity [Mass/Vol]214 ug/jLJjh780 - 410 ug/mLMetroHealthIron saturation [Mass fraction]68 %High20 - 55 %MetroHealthTransferrin [Mass/Vol]153 mg/oUEqu934 - 375 mg/dLMetroHealth MetroHealthLACTIC ACIDOrdered By: Arnol Gonzales on 00-69-3112Jknajzwnobkham and review of laboratory resultsNormalMetroHealthLactate [Moles/Vol]1.1 mmol/L0.5 - 2.0 mmol/LMetroHealthMetroHealthLDHOrdered By: Yaritza Gale on 01-08-2022 Interpretation and review of laboratory resultsAbnormalMetroHealthLDH [Catalytic activity/Vol]369 U/LHighMetroHealthMetroHealthMAGNESIUMon 01-08-2022 Interpretation and review of laboratory resultsNormalMetroHealthMagnesium [Mass/Vol]1.7 mg/dL1.6 - 2.8 mg/dLMetroHealthMANUAL DIFF AND MORPHon 01-08-2022 Anisocytosis Ql (Bld)MarkedMetroHealthCells Counted Total (Bld) [#][facility] Macrocytes Ql (Bld)SlightMetroHealthPolychromasia LM Ql (Bld)SlightMetroHealth Acanthocytes LM Ql (Bld)FewMetroHealthBurr cells LM Ql (Bld)FewMetroHealthCells Counted Total (Bld) [#]MetroHealthMacrocytes Ql (Bld)SlightMetroHealth Polychromasia LM Ql (Bld)SlightMetroHealthNo Panel InformationOrdered By: Fiorella Cochran on 18-45-8298AzgjpHtkqjsGz Panel Informationon 01-08-2022 Interpretation and review of laboratory resultsAbnormalMetroHealthMetroHealth RADIOLOGYMetroHealthNo Panel InformationOrdered By: Rafy Carr on 01-08-2022 MetroHealthNo Panel InformationOrdered By: Crow Werner on 01-08-2022 [facility] Work Phone: PROTHROMBIN TIME AND INRon 56-86-3556XXQ Coag (PPP) [Relative time]1.78 {INR}HighMetroHealthInterpretation and review of laboratory resultsAbnormalMetroHealthPT Coag (PPP) [Time]20.0 sHighMetroHealthMetroHealth RETICULOCYTE COUNTOrdered By: Deborah Che on 89-06-8946Avckiubv reticulocytes/Total reticulocytes (Bld)0.56 %HighMetroHealthInterpretation and review of laboratory resultsAbnormalMetroHealthReticulocytes (Bld) [#/Vol]0.10 10*3/uLHighMetroHealthReticulocytes/100 RBC (Bld)5.2 %High0.5 - 1.5 %[facility] MetroHealthTSHon 18-62-9700Qkipqrtheuqlnf and review of laboratory results AbnormalMetroHealthTS Qn6.627 m[IU]/LHighMetroHealthMetroHealthUS ASCITES SURVEY 4 QUADRANTSon 56-56-5886MNCDPFFJGOhyflSglekxQsyjcjvwy Study observation (narrative)MetroHealthUS ASCITES SURVEY 4 QUADRANTSOrdered By: Loreta Rizzo on 57-66-4675UatolGceedw Work Phone: US LIVER/GALL BLADDER/PANCREASon 50-13-3973ENTAKAOLN MetroHealthMetroHealthRadiology Study observation (narrative)MetroHealthVITAMIN B12 (CYANOCOBALAMIN)on 21-83-3773Efjkbawbz (Vitamin B12) [Moles/Vol]1299 pg/mL >300MetroHealthInterpretation and review of laboratory resultsNormalMetroHealth MetroHealthMetroHealthXR ELBOW LEFT MINIMUM 3 VIEWSon 51-80-7174Eauuqpudp Study observation (narrative)MetroHealthXR HUMERUS LEFTon 17-99-1787Nlxcmkgny Study observation (narrative)MetroHealthXR ORBITSon 62-34-9592HSIBKOLHTBwcgtFfdtbk Radiology Study observation (narrative)MetroHealthXR ORBITSOrdered By: Philipp Salgado on 88-67-7580YinplUogcnp Work Phone: bLOOD BANKOrdered By: Destiny Mark on 05-86-1497NYP/Rh InterpPositiveInvalid Interpretation CodeFAIRFAX COMM[facility] [place] BB SubsectionABSC Gel Interp Negative (01/07/22 10:21 AM)NormalFAIRFAX COMM[facility]ITY [facility] [place] BB SubsectionABO/Rh Retype InterpPositiveInvalid Interpretation CodeFAIRFAX COMMUNITY [facility] – [place] BB SubsectionCHEMISTRYOrdered By: SYSTEM SYSTEM on 06-12-3221Rcvvvjn [Mass/Vol]1.7 mmol/LNormal0.5 - 2.2 mmol/LFTMC RemisolCK [Catalytic activity/Vol]782 [iU]/dInvalid Interpretation Code14 - 261 Int._Unit/LFTMC RemisolComment on above:Result Comment: Critical Result verified by repeat analysis\Critical Result S_CK:782 Called to JASMEET LAZO AT by BETZAIDA DUNBAR and read back for confirmation at 01/07/2022 18:54:16Lactate [Mass/Vol]2.4 mmol/LHigh0.5 - 2.2 mmol/LFTMC RemisolMyoglobin [Mass/Vol]66 ng/mL Normal<=69ng/mLFT RemisolLactate [Mass/Vol]3.1 mmol/LHigh0.5 - 2.2 mmol/LFTMC RemisolAlbumin [Mass/Vol]3.2 g/dLLow3.3 - 5.0 gm/dLFAIRFAX COMM[facility]ITY [facility] [place] RemisolAlbumin/Globulin [Mass ratio]0.9 {ratio}Low1.1 - 2.2FT[facility] RemisolALP [Catalytic activity/Vol]167 [iU]/dHigh21 - 98 Int._Unit/LFTMC RemisolALT No additional P-5'-P [Catalytic activity/Vol]54 [iU]/dHigh6 - 46 Int._Unit/LFTMC RemisolAnion gap [Moles/Vol]16 mmol/LNormal6 - 16 mEq/LFTMC RemisolAST [Catalytic activity/Vol]160 [iU]/dHigh5 - 43 Int._Unit/LFTMC RemisolBilirubin [Mass/Vol]7.5 mg/dLHigh0.0 - 1.1 mg/dLFTMC RemisolBilirubin.direct [Mass/Vol]2.0 mg/dLHigh0.1 - 0.4 mg/dLFTMC Remisol Bilirubin.indirect [Mass or moles/Vol]5.5 mg/dLHigh0.1 - 0.9 mg/dLFTMC Remisol Calcium [Mass/Vol]8.3 mg/dLLow8.9 - 11.1 mg/dLFTMC RemisolChloride [Moles/Vol]97 mmol/QCok446 - 111 mmol/LFTMC RemisolCO2 [Moles/Vol]23 mmol/XNrvxfe37 - 31 mmol/LFTMC RemisolCreatinine [Mass/Vol]mg/dLLow0.5 - 1.3 mg/dLFTMC Remisol Ethanol [Mass/Vol]107 mg/dLInvalid Interpretation Code<=7mg/dLFTMC Remisol Comment on above:Result Comment: Critical Result verified by repeat analysis\Critical Result S_ETOH:107.0 Called to RODGER LAZARO AT ER by MARCIAL MORA And Read Back For Confirmation at: 01/07/2022 10:03:11GFR/1.73 sq M.predicted among blacks MDRD (S/P/Bld) [Vol rate/Area]mL/min/1.73 t2Mhdljx >=59mL/min/1.73 m2[facility] Chem SGFR/1.73 sq M.predicted among non-blacks MDRD (S/P/Bld) [Vol rate/Area]mL/min/1.73 m8Iquzzq>=59mL/min/1.73 m2[facility] Chem S Globulin (S) [Mass/Vol]3.6 g/dLNormal1.4 - 4.0 gm/dLFTMC RemisolGlucose [Mass/Vol]116 mg/fZFmbzks07 - 199 mg/dLFTMC RemisolLipase [Catalytic activity/Vol]59 U/LHigh13 - 58 unit/LFTMC RemisolPotassium [Moles/Vol]3.8 mmol/L Normal3.5 - 5.3 mmol/LFTMC RemisolProtein [Mass/Vol]6.8 g/dLNormal6.0 - 7.8 gm/dLFTMC RemisolSodium [Moles/Vol]132 mmol/VKny422 - 145 mmol/LFTMC Remisol Troponin I.cardiac [Mass/Vol]18.40 pg/aXZcblel26.90 - 38.40 pg/mLFTMC Remisol Urea nitrogen [Mass/Vol]7 mg/dLNormal5 - 21 mg/dLFTMC RemisolUrea nitrogen/Creatinine [Mass ratio]Unable to CalculateInvalid Interpretation Code10 - 20FT RemisolCOAGULATIONOrdered By: Mary Kay Christine on 40-89-3520bHYG Coag (PPP) [Time]34.3 nNybzie62.1 - 36.5 second(s)FT Auto CoagINR Coag (PPP) [Relative time]1.6 {INR}Invalid Interpretation CodeFT Auto CoagPT Coag (PPP) [Time]19.2 sHigh10.2 - 12.9 second(s)FT Auto CoagHEMATOLOGYOrdered By: Loreta Barnett on 48-89-8317Nytkcemtthjt Ql (Bld)Present (01/07/22 9:25 AM)NormalFTMC HemeManSSErythrocyte distribution width (RBC) [Ratio] 17.2 %High10.9 - 14.2 %[facility] HemeAutoSSHematocrit (Bld) [Volume fraction]19.3 % Low37.7 - 49.0 %[facility] HemeAutoSSHemoglobin (Bld) [Mass/Vol]6.9 g/dLInvalid Interpretation Code13.5 - 17.5 gm/dLFTMC HemeAutoSSComment on above:Result Comment: Results Called To Dr Nieto/ ER By Lali Barnett And Read Back For Confirmation On01/07/2022 10:21:27 EDT Results Verified By Repeat AnalysisHypochromia Auto Ql (Bld)Present (01/07/22 9:25 AM)NormalFTMC HemeManSSMacrocytes Ql (Bld)Present (01/07/22 9:25 AM)NormalFTMC HemeManSSMCH (RBC) [Entitic mass]38.9 meUzei78.0 - 34.0 pgFTMC HemeAutoSSMCHC (RBC) [Mass/Vol]36.0 g/uDWwotgd73.4 - 36.0 gm/dLFTMC HemeAutoSSMCV (RBC) [Entitic vol]108.0 uCDmjw56.0 - 100.0 fLFTMC HemeAutoSS Morphology Parth (Bld) [Interp]See Morphology (01/07/22 9:25 AM)NormalFTMC HemeManSSPlatelet mean volume (Bld) [Entitic vol]8.8 fLNormal6.4 - 10.8 fLFTMC HemeAutoSSPlatelets (Bld) [#/Vol]63.0 E9/UMuf491.0 - 500.0 E9/LFTMC HemeAutoSSRBC (Bld) [#/Vol]1.8 E12/LLow4.3 - 5.9 E12/LFTMC HemeAutoSSTarget cells LM Ql (Bld)Present (01/07/22 9:25 AM)NormalFTMC HemeManSSWBC corrected for nucl RBC Auto (Bld) [#/Vol]7.4 E9/LNormal4.0 - 11.0 E9/LFTMC HemeAutoSSHEMATOLOGYOrdered By: SYSTEM SYSTEM on 65-96-4979Poyzenemt/100 WBC (Bld)1.1 %Normal0.0 - 2.0 %[facility] HemeAutoSS Basophils/Leukocytes Auto (Bld) [Pure # fraction]0.1 E9/LNormal0.0 - 0.2 E9/L [facility] HemeAutoSSEosinophils/100 WBC (Bld)1.8 %Normal0.0 - 8.0 %[facility] HemeAutoSS Eosinophils/Leukocytes Auto (Bld) [Pure # fraction]0.1 E9/LNormal0.0 - 0.5 E9/L [facility] HemeAutoSSLymphocytes/100 WBC (Bld)40.2 %Ggjoxm10.0 - 50.0 %[facility] HemeAutoSS Lymphocytes/Leukocytes Auto (Bld) [Pure # fraction]3.0 E9/LNormal1.0 - 4.0 E9/L [facility] HemeAutoSSMonocytes/100 WBC (Bld)12.1 %Normal4.0 - 14.0 %[facility] HemeAutoSS Monocytes/Leukocytes Auto (Bld) [Pure # fraction]0.9 E9/LNormal0.2 - 1.0 E9/L [facility] HemeAutoSSNeutrophils/100 WBC (Bld)44.8 %Ygqvea73.0 - 75.0 %[facility] HemeAutoSS Neutrophils/Leukocytes Auto (Bld) [Pure # fraction]3.3 E9/LNormal2.0 - 7.5 E9/L [facility] HemeAutoSSHEMATOLOGYOrdered By: Bhavesh Bone on 00-52-5380Pyno ReviewAnemia with polychromasia, target cells. Thrombocytopenia with no increase of schistocytes. No hypersegmented granulocytes seen.D64.9CPT 38325Ovtuxyl Interpretation CodeFAIRFAX COMMUNITY [facility]PITAL [facility] [place] HemeManSSURINALYSISOrdered By: Mary Kay Christine on 01-07-2022 Bilirubin Ql (U)Negative (01/07/22 12:30 PM)NormalNegativeFAIRFAX COMM[facility] [place] UA Auto SSClarity (U)Clear (01/07/22 12:30 PM)NormalClearFCREEK NATION COMM[facility] [place] UA Auto SSColor (U)Yellow (01/07/22 12:30 PM)NormalYellowFAIRFAX COMMUNITY HOSPITAL [facility] [place] UA Auto SSCrystals LM Ql (Urine sed)Present (01/07/22 12:30 PM)NormalFAIRFAX COMMUNITY [facility] [place] UA Auto SSEpithelial cells.squamous LM.HPF (Urine sed) [#/Area]0-2 /HPFNormal0-2/HPFFAIRFAX COMMUNITY HOSPITAL [facility] UA Auto SSGlucose Test strip (U) [Mass/Vol]Negative (01/07/22 12:30 PM)NormalNegativeFAIRFAX COMM[facility] [place] UA Auto SSHemoglobin Ql (U)Negative (01/07/22 12:30 PM)NormalNegativeFAIRFAX COMM[facility] [place] UA Auto SSKetones (U) [Mass/Vol]2+ *ABN* (01/07/22 12:30 PM)Invalid Interpretation CodeNegativeFAIRFAX COMMUNITY HOS[facility] [place] UA Auto SS Redbird Smith.plasma/Redbird Smith.RBC (Bld) [Mass ratio]0-3 /HPFNormal0-3/HPFMC UA Auto SSMucus Ql (Urine sed)Trace (01/07/22 12:30 PM)NormalFAIRFAX [facility] [place] UA Auto SSNitrite Ql (U)Negative (01/07/22 12:30 PM)NormalNegativeFAIRFAX [facility] [place] UA Auto SSpH (U)7.5 *NA* (01/07/22 12:30 PM)Invalid Interpretation Code5.0 - 9.0FA[facility]FA[facility] [place] UA Auto SSProtein (U) [Mass/Vol]Negative (01/07/22 12:30 PM)NormalNegativeFAIRFAX COMM[facility] UA Auto SSSpecific gravity (U) [Rel density] 1.010 *NA* (01/07/22 12:30 PM)Invalid Interpretation Code1.005 - 1.030FA[facility] [place] UA Auto SSUA Spec DescClean Catch (01/07/22 12:30 PM)NormalFAIRFAX [facility] UA Auto SSUrobilinogen Qn (U)4.8594161 {Alexey'U}/dLInvalid Interpretation Code0.0 - 1.0 EU/dLFAIRFAX COMMUNITY HOSPITAL [facility] [place] UA Auto SSWBC Auto Ql (U)Negative (01/07/22 12:30 PM)NormalNegativeFAIRFAX [facility] [place] UA Auto SSWBC LM.HPF (Urine sed) [#/Area]0-5 /HPFNormal0-5/HPFFAIRFAX COMMUNITY HOSPITAL [facility] UA Auto SS Vital Signs Date TimeVital SignValuePerforming KfzhxdptvMgeespmh03-93-8217 08:39-0400 Diastolic blood hulqtwdy09 mm[Hg]Evelio Carr [facility]05-08-2025 08:39-0400Heart rate65 /minBrayanni Carr [facility]05-08-2025 08:39-0400Mean blood ueqkzkvg08 mm[Hg]Evelio Carr [facility]05-08-2025 08:39-0400 Respiratory rate16 /minBradfradha Carr [facility]05-08-2025 08:39-0400 Systolic blood iyvygkgl112 mm[Hg]Evelio Carr [facility]04-29-2025 11:54-0400Heart rate58 /minBrayanni Carr [facility]04-29-2025 11:54-5219GmP9% (BldA) [Mass fraction]100 %Evelio Carr [facility]04-29-2025 11:54-0400 Diastolic blood mpsbuvgw84 mm[Hg]Evelio Carr [facility]04-29-2025 11:54-0400Mean blood koetdggj498 mm[Hg]Evelio Carr [facility]04-29-2025 11:54-0400 Systolic blood jqfhwaei949 mm[Hg]Evelio Carr [facility]04-29-2025 11:43-0400 Diastolic blood jeywezva97 mm[Hg]Evelio Carr [facility]04-29-2025 11:43-0400Heart rate59 /minBradfradha Bruno [facility]04-29-2025 11:43-8381WeB9% (BldA) [Mass fraction]97 %Evelio Carr [facility]04-29-2025 11:43-0400 Systolic blood pdqjthly033 mm[Hg]Evelio Carr [facility]04-29-2025 10:52-0400Heart rate62 /minBrayanni Bruno [facility]04-29-2025 10:52-6714MuJ1% (BldA) [Mass fraction]100 %Evelio Carr [facility]04-29-2025 10:52-0400Body nkhiyyggyea41.88 [degF]Evelio Bruno [facility]04-29-2025 10:50-0400 Diastolic blood xmlhbenw49 mm[Hg]Fraser Bruno [facility]04-29-2025 10:50-0400Mean blood yoruhzsj359 mm[Hg]Evelio Bruno [facility]04-29-2025 10:50-0400 Systolic blood zpvhrkei064 mm[Hg]Evelio Carr [facility]04-29-2025 10:49-0400 Respiratory rate14 /minBrayanni Carr [facility]04-15-2025 08:21-0400 Diastolic blood ziulxbqb20 mm[Hg]Sadie Loco [facility]04-15-2025 08:21-0400Heart rate69 /minAmanda Loco [facility]04-15-2025 08:21-0400Mean blood rsnwphxa179 mm[Hg]Sadie Loco [facility]04-15-2025 08:21-0400 Respiratory rate14 /minAmanda Loco [facility]04-15-2025 08:21-0400 Systolic blood tukatqff369 mm[Hg]Sadie Loco [facility]03-17-2025 08:32-0400 Diastolic blood ztfbnzix32 mm[Hg]Sadie Loco [facility]03-17-2025 08:32-0400Heart rate68 /minAmanda Loco [facility]03-17-2025 08:32-0400Mean blood mm[Hg]Sadie Loco [facility]03-17-2025 08:32-0400 Respiratory rate16 /minAmanda [employer] [facility]03-17-2025 08:32-0400 Systolic blood rvjgezdy922 mm[Hg]Sadie Loco [facility]03-14-2025 09:24-0400 Diastolic blood poakrcsa50 mm[Hg]Martin Sarmini [facility]03-14-2025 09:24-0400Heart rate65 /minMuhammad Sarmini [facility]03-14-2025 09:24-0400Mean blood qufbswlj58 mm[Hg]Martin Sarmini [facility]03-14-2025 09:24-0400 Respiratory rate20 /minMuhammad Sarmini [facility]03-14-2025 09:24-1568RmT0% (BldA) [Mass fraction]100 %Martin Sarmini [facility]03-14-2025 09:24-0400 Systolic blood mm[Hg]Martin Sarmini [facility]03-14-2025 09:13-0400 Diastolic blood jaloxgzb51 mm[Hg]Martin Sarmini [facility]03-14-2025 09:13-0400Heart rate63 /minMuhammad Sarmini [facility]03-14-2025 09:13-0400Mean blood rnlsicri22 mm[Hg]Martin Sarmini [facility]03-14-2025 09:13-0400 Respiratory rate13 /minMuhammad Sarmini [facility]03-14-2025 09:13-2381RbQ4% (BldA) [Mass fraction]100 %Martin Sarmini [facility]03-14-2025 09:13-0400 Systolic blood houitfhy945 mm[Hg]Martin Sarmini [facility]03-14-2025 09:07-7972NqR9% (BldA) [Mass fraction]98 %Martin Sarmini [facility]03-14-2025 09:04-0400Blood Pressure LocationMuhammad Sarmini [address] [place], [place] [id number] 09:04-0400Body ezllwtflqck34.7 [degF]Martin Sarmini [address] [place], [place] [id number] 09:04-0400 Diastolic blood fzdhadmp98 mm[Hg]Martin Sarmini [address] [place], [place] [id number] 09:04-0400Heart rate71 /minMuhammad Sarmini [address] [place], [place] [id number] 09:04-0400Mean blood erafkfeu89 mm[Hg]Martin Sarmini [address] [place], [place] [id number] 09:04-0400 Respiratory rate13 /minMuhammad Sarmini [address] [place], [place] [id number] 09:04-0400 Systolic blood ikgcbulk619 mm[Hg]Martin Sarmini [address] [place], [place] [id number] 08:55-0400 Respiratory rate12 /minMuhammad Sarmini [address] [place], [place] [id number] 08:21-0400Blood Pressure LocationMuhammad Sarmini [address] [place], [place] [id number] 08:21-0400Body fbkrewxvnzd76.06 [degF]Martin Sarmini [address] [place], [place] [id number] 10:13-0500 Diastolic blood mm[Hg]Evelio Carr [facility]02-19-2025 10:13-0500Heart rate69 /minBrayanni Bruno [facility]02-19-2025 10:13-0500Mean blood mm[Hg]Evelio Carr [facility]02-19-2025 10:13-0500 Respiratory rate14 /minBradfradha Bruno [facility]02-19-2025 10:13-0500 Systolic blood jqtylgwd577 mm[Hg]Evelio Carr [facility]01-29-2025 09:00-0500Blood Pressure LocationJacob Ehsaninski [employer] 860-6222Cudgib-GtclgMercy Memorial Hospital01-29-2025 09:00-0500Diastolic blood mm[Hg]Vic Ramos [employer] 620-2236Lpnzbq-Qcyyd[address] [place], [place] 3140101-29-2025 09:00-0500Heart rate78 /minJacoluis Sosinski [employer] 629-3516Iugwro-Hdhll[address] [place], [place] 5905001-29-2025 09:00-1582DyF2% (BldA) [Mass fraction]100 %Vic Ramos [employer] 886-7190Lcziiz-VcclqMercy Memorial Hospital01-29-2025 09:00-0500Systolic blood deflwnju866 mm[Hg]Vic Ramos [employer] 828-6078Sfkyeb-Dyoiq[address] [place], [place] 5905001-23-2025 13:43-0500Body jitrqldhzwg82.24 [degF][facility]on [facility]ille[facility]-2025 13:43-0500Diastolic blood luwmligz63 mm[Hg][facility]on [facility]-20[facility] 13:43-0500Heart rate74 /[facility]20[facility] 13:43-0500Mean blood akroryvx19 mm[Hg][facility]01-23-2025 13:43-0500 Respiratory rate16 /minG[facility]01-23-2025 13:43-6407VtW0% (BldA) [Mass fraction]100 %[facility]01-23-2025 13:43-0500Systolic blood mm[Hg][facility]12-13-2024 17:23-0500Diastolic blood ooiobwjv42 mm[Hg]Loreta Cummings [address] [place], [place] 6134012-13-2024 17:23-0500Mean blood hoxjiupa931 mm[Hg]Loreta Cummings [address] [place], [place] 6134012-13-2024 17:23-0500Systolic blood vozmrokk458 mm[Hg]Loreta Cummings [address] [place], [place] 6134012-13-2024 15:27-0500Blood Pressure LocationLoreta Cummings [address] [place], [place] 6134012-13-2024 15:27-0500Body jhbxzproicr56.42 [degF]Loreta Cummings [address] [place], [place] 6134012-13-2024 15:27-0500Diastolic blood meshiqxf51 mm[Hg]Loreta Cummings [address] [place], [place] 6134012-13-2024 15:27-0500Heart rate70 /Jolene Cummings [address] [place], [place] 6134012-13-2024 15:27-0500Respiratory rate18 /Jolene Cummings 399-5561Szoaxp-ThkfvGal[facility] Primary Arxd13-06-5008 15:27-0500Systolic blood sydndeof464 mm[Hg]Loreta Cummings 227-9546Cqihzv-UvsflMercy Memorial Hospital10-03-2024 13:26-0400Blood Pressure LocationMuhammad Sarmini 530-0388Tentmx-JdbcwWilson [facility]10-03-2024 13:26-0400Diastolic blood vekstrcd78 mm[Hg]Martin Sarmini 057-6367Mbukqr-NfnmrWilson Street Hospital10-03-2024 13:26-0400Heart rate72 /minMuhammad Sarmini 187-5958Torece-FclhaWilson Street Hospital10-03-2024 13:26-0400Systolic blood nvhshtda965 mm[Hg]Martin Sarmini 710-7626Guwyft-OjhbhWilson Street Hospital09-05-2024 15:35-0400Blood Pressure LocationMuhammad Sarmini 258-2782Glkbor-VyyceWilson Street Hospital09-05-2024 15:35-0400Diastolic blood focnuegq97 mm[Hg]Martin Sarmini 042-3167Tbnogh-UigusWilson Street Hospital09-05-2024 15:35-0400Heart rate77 /minMuhammad Sarmini 965-2830Qxiotp-WqeuhWilson Street Hospital09-05-2024 15:35-0400Systolic blood ikhnqwvp446 mm[Hg]Amrtin Sarmini 341-5330Rdxusi-KupdcWilson Street Hospital09-05-2024 09:36-0400Body cpfzyc496.2 cmMofela Bertrand MD Work Phone: [facility] SunnyBump Lwajjt26-78-4776 09:36-0400Body mass index (BMI) [Ratio]25.56 kg/m3HphhzomRadha Bertrand MD Work Phone: 1(325)[facility]09-05-2024 09:36-0400Body .03 kgRadha Bertrand MD Work Phone: 1(434)[facility]09-05-2024 09:36-0400Diastolic blood llyrohan33 mm[Hg]Radha Bertrand MD Work Phone: 1(875)[facility]09-05-2024 09:36-0400Heart rate 65 /minRadha Bertrand MD Work Phone: [phone])[facility]09-05-2024 09:36-6218HgD0% (BldA) [Mass fraction]97 %Radha Bertrand MD Work Phone: 1(995)[facility]09-05-2024 09:36-0400Systolic blood jeflqnzj016 mm[Hg]Radha Bertrand MD Work Phone: 1([phone]09-04-2024 09:08-0400Body esugaxhceih61.06 [degF][facility]09-04-2024 09:08-0400Diastolic blood dswmzxry09 mm[Hg][facility]09-04-2024 09:08-0400Heart rate71 /minG[facility]igh Hospital09-04-2024 09:08-0400Mean blood egwjenbe18 mm[Hg][facility]09-04-2024 09:08-0400Respiratory rate16 /minG[facility]igh Hospital09-04-2024 09:08-5131ZcL5% (BldA) [Mass fraction]100 %[facility] 05-11-2024 09:08-0400Systolic blood mtkazxyz074 mm[Hg][facility]08-23-2024 09:05-0400Blood Pressure Tor Cummings 817-5364Wyisel-Quelv[address] [place], [place] 5905008-23-2024 09:05-0400Body gaxtzvuzmvh41.24 [degF]Loreta Cummings 248-1113Ndrzqd-Ipgen[address] [place], [place] 5905008-23-2024 09:05-0400Diastolic blood flyfxyxn85 mm[Hg]Loreta Cummings 001-0832Mnmwtq-Zkesk[address] [place], [place] 5905008-23-2024 09:05-0400Heart rate90 /Jolene Cummings 238-4929Lrsmbv-Kqifh[address] [place], [place] 5905008-23-2024 09:05-0400Respiratory rate18 /Jolene Cummings 865-4316Cvifnr-Rbnsk[address] [place], [place] 5905008-23-2024 09:05-8883IfM9% (BldA) [Mass fraction]99 %Loreta Cummings 935-1898Rbhfnm-Gmoqu[address] [place], [place] 5905008-23-2024 09:05-0400Systolic blood bjftacod174 mm[Hg]Lortea Cummings 589-3058Gksdnw-Xphtk[address] [place], [place] 5905008-15-2024 14:24-0400Body opiqna503.[address]08-15-2024 14:24-0400 Body mass index (BMI) [Ratio]24.28 kg/u1Rtvfb[address]08-15-2024 14:24-0400Body rxzmpe89.[address]08-08-2024 08:37-0400Body .2 cmMofela Bertrand MD Work Phone: [phone]08-08-2024 08:37-0400Body mass index (BMI) [Ratio]24.28 kg/x2BsxlgwdRadha Bertrand MD Work Phone: [facility]08-08-2024 08:37-0400Body dodptn21.31 kgMofela Bertrand MD Work Phone: [facility]08-08-2024 08:37-0400Diastolic blood oertuqqt05 mm[Hg]Radha Bertrand MD Work Phone: 1(544)[facility]08-08-2024 08:37-0400Heart rate 95 /minRadha Bertrand MD Work Phone: 1([phone])[facility]08-08-2024 08:37-3848IsS4% (BldA) [Mass fraction]99 %Radha Bertrand MD Work Phone: 1(126)[facility]08-08-2024 08:37-0400Systolic blood mm[Hg]Radha Bertrand MD Work Phone: [phone]07-11-2024 14:22-0400Blood Pressure LocationMarc Liz [address]07-11-2024 14:22-0400 Diastolic blood wyzmoobt59 mm[Hg]Marc Liz [address] [place], [place] 1633407-11-2024 14:22-0400Heart rate66 /Aster Ornelasn [address] [place], [place] 1633407-11-2024 14:22-0400 Respiratory rate16 /Aster Ornelasn [address]07-11-2024 14:22-7453EwW8% (BldA) [Mass fraction]99 %Marc Ornelasn [address] [place], [place] 1633407-11-2024 14:22-0400 Systolic blood mm[Hg]Marc Ornelasbri [address] [place], [place] 1633407-08-2024 09:29-0400Body ltkbmtpanru60.6 [degF]Ella Gonzales [facility]07-08-2024 09:29-0400 Diastolic blood mykuhfln17 mm[Hg]Ella Crainstefany [address] [place], [place] 5804307-08-2024 09:29-0400Heart rate68 /Aliyah Gonzales [address] [place], [place] 4639407-08-2024 09:29-0400Mean blood yzmjggso86 mm[Hg]Ella Gonzales [address] [place], [place] 5804307-08-2024 09:29-0400 Respiratory rate18 /minElla Gonzales [address] [place], [place] 4639407-08-2024 09:29-5550BlD2% (BldA) [Mass fraction]100 %Ella Gonzales [address] [place], [place] 4639407-08-2024 09:29-0400 Systolic blood amzklryg715 mm[Hg]Ella Gonzales [address]06-20-2024 09:10-0400Body vupkmpdketp14.88 [degF]Ella Gonzales [address]06-20-2024 09:10-0400 Diastolic blood mtmhjjuq84 mm[Hg]Ella Gonzales [address] [place], [place] 4639406-20-2024 09:10-0400Heart rate76 /Aliyah Gonzales [address] [place], [place] 4639406-20-2024 09:10-0400Mean blood ksnilplx83 mm[Hg]Ella Gonzales [address] [place], [place] 4639406-20-2024 09:10-0400 Respiratory rate18 /Aliyah Gonzales [address] [place], [place] 4639406-20-2024 09:10-8584EoT8% (BldA) [Mass fraction]100 %Ella Gonzales [address] [place], [place] 4639406-20-2024 09:10-0400 Systolic blood mm[Hg]Ella Gonzales [facility]05-22-2024 09:42-0400Blood Pressure LocationLoreta Cummings 470-2356Hjgfdm-Apkcw[address] [place], [place] 5905005-22-2024 09:42-0400Body dhdebgbokvb76.7 [degF]Loreta Cummings 451-6281Oxnzty-Iqtja[address] [place], [place] 5905005-22-2024 09:42-0400Diastolic blood lgynvaji74 mm[Hg]Loreta Cummings [address] [place], [place] 6134005-22-2024 09:42-0400Heart rate72 /Jolene Cummings [address] [place], [place] 6134005-22-2024 09:42-0400Respiratory rate14 /Jolene Cummings [address] [place], [place] 6134005-22-2024 09:42-4279BbS8% (BldA) [Mass fraction]99 %Loreta Cummings [address] [place], [place] 6134005-22-2024 09:42-0400Systolic blood zodevgiz544 mm[Hg]Loreta Cummings [address] [place], [place] 6134004-17-2024 10:57-0400Blood Pressure LocationLoreta Cummings 239-8859Qvxvcw-Kaayk[address] [place], [place] 5905004-17-2024 10:57-0400Body fdpndejvghz90.7 [degF]Loreta Cummings 043-8371Quftrw-Woqij[address] [place], [place] 5905004-17-2024 10:57-0400Diastolic blood llefmsdi15 mm[Hg]Loreta Cummings 180-2835Yurfdk-Wqxan[address] [place], [place] 5905004-17-2024 10:57-0400Heart rate76 /Jolene Cummings 151-4063Sdytyk-Bwvvs[address] [place], [place] 2494604-17-2024 10:57-0400Respiratory rate16 /Jolene Cummings 754-0933Ylqgna-Fyhwm[address]04-17-2024 10:57-7233VoP7% (BldA) [Mass fraction]100 %Loreta Cummings 822-0268Lrwgfr-Kmwoo[address] [place], [place] 5905004-17-2024 10:57-0400Systolic blood vhkstiro875 mm[Hg]Loreta Cummings [address] [place], [place] 6134004-07-2024 11:54-0400[facility] RoundC[facility]04-07-2024 11:54-0400[facility]Park[facility]04-07-2024 11:12-0400Heart rate81 /minParkview [facility] 12-13-2023 11:12-1805CdI7% (BldA) [Mass fraction]100 %[facility]04-07-2024 11:11-0400Diastolic blood drnydali18 mm[Hg][facility]04-07-2024 11:11-0400Mean blood yiqnrfhv54 mm[Hg][facility]04-07-2024 11:11-0400Systolic blood mcfpxihm569 mm[Hg][facility]04-07-2024 11:11-0400Body tinzhmphddn71.88 [degF][facility]04-07-2024 10:31-0400[facility] RoundC[facility]04-07-2024 10:310400Promise to ReturnPark[facility]04-07-2024 09:26-0400H[facility] RoundC[facility]innati [facility]04-07-2024 09:26-0400Promise to ReturnPark[facility]04-07-2024 07:12-0400Heart rate87 /minParkview [facility]04-07-2024 07:12-5679RaJ3% (BldA) [Mass fraction]100 %[facility]04-07-2024 07:11-0400Diastolic blood qgukpdqu35 mm[Hg][facility]04-07-2024 07:11-0400Mean blood coffwblf73 mm[Hg][facility]04-07-2024 07:11-0400Systolic blood mm[Hg][facility]04-07-2024 07:11-0400Body cnkvpvahvtu26.96 [degF][facility]04-07-2024 00:49-0400Blood Pressure LocationParkview Health [facility]04-07-2024 00:49-0400Body yjitnhldlpc82.78 [degF][facility]04-07-2024 00:49-0400Diastolic blood ydpfhdnb27 mm[Hg][facility]04-07-2024 00:49-0400Heart zusb577 /minPark[facility]04-07-2024 00:49-0400Mean blood lxywjfbo41 mm[Hg][facility]04-07-2024 00:49-0400Systolic blood ucnoompv955 mm[Hg][facility]04-06-2024 20:21-0400Mean blood mm[Hg][facility]04-06-2024 04:00-0400Mean blood ymnfnutg23 mm[Hg][facility]04-06-2024 04:00-0400Respiratory rate16 /minM[facility] Centersee [place]04-05-2024 23:41-0400Blood Pressure LocationParkview [facility]04-05-2024 23:41-0400Mean blood temnegas11 mm[Hg][facility]04-05-2024 14:17-0400Body zecvxcilmzj13.06 [degF][facility]04-05-2024 14:17-0400Heart rate 66 /minPark[facility]04-05-2024 14:04-0400 Respiratory rate18 /[facility]04-05-2024 13:30-0400Respiratory rate18 /[facility] 12-11-2023 09:08-0400Body odfsrhbutaf24.7 [degF][facility]04-05-2024 09:08-0400Heart rate76 /minPark[facility]03-06-2024 16:50-0500Blood Pressure LocationMukassandrad Bryannamini [facility]03-06-2024 16:50-0500Body wfxzmedkyyc18.06 [degF]Martin Sarmini [facility]03-06-2024 16:50-0500 Diastolic blood tnzraqoa93 mm[Hg]Martin Sarmini [facility]03-06-2024 16:50-0500Heart rate60 /minMuhammad Sarmini [facility]03-06-2024 16:50-0500Mean blood uyfakcjw733 mm[Hg]Martin Sarmini [facility]03-06-2024 16:50-0500 Respiratory rate12 /minMuhammad Sarmini [facility]03-06-2024 16:50-8580ZdM7% (BldA) [Mass fraction]100 %Martin Sarmini [facility]03-06-2024 16:50-0500 Systolic blood uvyiwxqf945 mm[Hg]Martin Sarmini [facility]03-06-2024 16:40-0500Blood Pressure LocationMuhammad Sarmini [facility]03-06-2024 16:40-0500 Diastolic blood yqpfkpqt94 mm[Hg]Martin Sarmini [facility]03-06-2024 16:40-0500Heart rate63 /minMuhammad Sarmini [facility]03-06-2024 16:40-0500Mean blood gvbvijfd926 mm[Hg]Martin Sarmini [facility]03-06-2024 16:40-0500 Respiratory rate17 /minMuhammad Sarmini [facility]03-06-2024 16:40-5306PtW2% (BldA) [Mass fraction]100 %Martin Sarmini [facility]03-06-2024 16:40-0500 Systolic blood vgesmmtv883 mm[Hg]Martin Sarmini [facility]03-06-2024 16:35-0500Blood Pressure LocationMuhammad Sarmini [address] [place], [place] 7734203-06-2024 16:35-0500 Diastolic blood vhkfucpn37 mm[Hg]Martin Sarmini [facility]03-06-2024 16:35-0500Heart rate74 /minMuhammad Sarmini [facility]03-06-2024 16:35-0500Mean blood mm[Hg]Martin Sarmini [facility]03-06-2024 16:35-0500 Respiratory rate14 /minMuhammad Sarmini [address] [place], [place] 5465603-06-2024 16:35-8685DfA7% (BldA) [Mass fraction]100 %Martin Sarmini [facility]03-06-2024 16:35-0500 Systolic blood iuypeeae185 mm[Hg]Martin Sarmini [facility]03-06-2024 16:25-0500Body akhgxaphmhi81.24 [degF]Martin Sarmini [facility]03-06-2024 16:20-0500 Respiratory rate18 /minMuhammad Sarmini [facility]03-06-2024 16:15-0500 Respiratory rate19 /minMuhammad Sarmini [facility]03-06-2024 14:32-0500Body ninyyautvpl62.16 [degF]Martin Sarmini [facility]02-21-2024 09:31-0500Blood Pressure LocationElitiago John 159-8416Mbaijm-WyttdGalion Community Hospital Primary Ilel44-79-6757 09:31-0500Body jsutcatplod22.88 [degF]Loreta Cummings 297-2701Dolqte-QlulxMer[facility]02-21-2024 09:31-0500Diastolic blood uqlmmjxp33 mm[Hg]Loreta Cummings 283-5221Jnneds-XlittMercy Memorial Hospital02-21-2024 09:31-0500Heart rate76 /Jolene Cummings 102-3307Ajadso-Vmqum[address] [place], [place] 5905002-21-2024 09:31-0500Respiratory rate16 /Jolene Cummings 329-7116Psxsgx-Hcxgl[address] [place], [place] 5905002-21-2024 09:31-6569ImP1% (BldA) [Mass fraction]100 %Loreta Cummings 700-6397Ahjfms-Vpphz[address] [place], [place] 5905002-21-2024 09:31-0500Systolic blood mm[Hg]Loreta Cummings 966-4161Soqdab-Wuuos[address] [place], [place] 5905001-15-2024 14:24-0500Blood Pressure LocationKeith De Lunaey 251-9942Qyawds-QibemUpper [facility]01-15-2024 14:24-0500Body lnanjsmxsay95.06 [degF]Keith Harshad 405-7611Auuybg-LzhzcUpper Valley Medical Center01-15-2024 14:24-0500Diastolic blood xiutfhds92 mm[Hg]Keith Harshad 950-8582Wihjyo-VfawlUpper Valley Medical Center01-15-2024 14:24-0500Heart rate73 /minJamie Harshad 960-7635Rwgplq-IeapmUpper Valley Medical Center01-15-2024 14:24-0500Respiratory rate18 /minJamie Harshad 686-2834Atvrqf-WtgepUpper Valley Medical Center01-15-2024 14:24-4068XiS3% (BldA) [Mass fraction]99 %Keith Patricia 506-8766Xpsaeq-QjvwpGalion Community Hospital Convenient Dbdn49-77-8549 14:24-0500Systolic blood ajjzdacp812 mm[Hg]Keith Patricia 914-0501Thffsn-NfjrwUpper Valley Medical Center12-26-2023 12:16-0500Diastolic blood bzbrkxyy63 mm[Hg]Martin Sarmini 785-1741Rfvsbz-AuigeWilson Street Hospital12-26-2023 12:16-0500Mean blood mm[Hg]Martin Sarmini 173-9086Ktypmf-BxnrnWilson Street Hospital12-26-2023 12:16-0500Systolic blood cqlbqgub907 mm[Hg]Martin Sarmini 502-4131Vgxcee-KojhcWilson Street Hospital12-26-2023 12:12-0500Blood Pressure LocationMuhammad Sarmini 692-7703Wsednk-GdredWilson Street Hospital12-26-2023 12:12-0500Diastolic blood utveifvi54 mm[Hg]Martin Sarmini 055-7133Fzbcul-KjjreWilson Street Hospital12-26-2023 12:12-0500Heart rate80 /minMuhammad Sarmini 846-0483Zujzej-VkfqkWilson Street Hospital12-26-2023 12:12-0500Respiratory rate18 /minMuhammad Sarmini 172-0795Nkbnfo-NmhfaWilson Street Hospital12-26-2023 12:12-0500Systolic blood eqbcphei476 mm[Hg]Martin Sarmini 239-1916Reuhhj-EfyhvWilson Street Hospital12-20-2023 09:34-0500Blood Pressure LocationLoreta Cummings 023-3454Stqlxj-Lskjt[address] [place], [place] 3140112-20-2023 09:34-0500Diastolic blood ywcyiutv39 mm[Hg]Loreta Cummings [address] [place], [place] 6134012-20-2023 09:34-0500Heart rate71 /Jolene Cummings [address] [place], [place] 6134012-20-2023 09:34-0500Respiratory rate18 /Jolene Cummings [address] [place], [place] 6134012-20-2023 09:34-2777IpD5% (BldA) [Mass fraction]100 %Loreta Cummings [address] [place], [place] 6134012-20-2023 09:34-0500Systolic blood msqzrxjy400 mm[Hg]Loreta Cummings [address] [place], [place] 6134011-17-2023 07:37-0500Blood Pressure LocationLoreta Cummings [address] [place], [place] 6134011-17-2023 07:37-0500Diastolic blood mm[Hg]Loreta Cummings [address] [place], [place] 6134011-17-2023 07:37-0500Heart rate79 /Jolene Cummings [address] [place], [place] 6134011-17-2023 07:37-0500Respiratory rate16 /Jolene Cummings [address] [place], [place] 6134011-17-2023 07:37-5092UwF9% (BldA) [Mass fraction]100 %Loreta Cummings [address] [place], [place] 6134011-17-2023 07:37-0500Systolic blood fibwbkiv698 mm[Hg]Loreta Cummings [address] [place] [address] Hrww26-24-8227 12:23-0400Body oxpkjoxqsxb00.88 [degF]Teddy Luna [address] [place], [place] 4639410-13-2023 12:23-0400 Diastolic blood mm[Hg]Teddy Luna [address] [place], [place] 4639410-13-2023 12:23-0400Heart rate70 /minTeddy Luna [address] [place], [place] 4639410-13-2023 12:23-0400 Respiratory rate18 /minTeddy Luna [address]10-13-2023 12:23-5345KvT4% (BldA) [Mass fraction]98 %Teddy Luna [address] [place], [place] 4639410-13-2023 12:23-0400 Systolic blood mm[Hg]Teddy Luna [address]08-18-2023 11:00-0400Body .18 cmJarrod Eddy Other [place] [facility] Other 08-18-2023 11:00-0400Body mass index (BMI) [Ratio] 26.94 kg/r0PkmaoqfJarrod Eddy Other [facility] Other 08-18-2023 11:00-0400Body cwnvwgnoxsk15.4 [degF] Jarrod Eddy Other [facility] Other 08-18-2023 11:00-0400Body .02 kgJarrod Eddy Other [facility] 08-18-2023 11:00-0400Diastolic blood vgdwatkr02 mm[Hg] Jarrod Eddy Other [place] [facility] Other 08-18-2023 11:00-9625SwR2% (BldA) [Mass fraction]99 % [facility] 08-18-2023 11:00-0400Systolic blood vmzypkbf819 mm[Hg] Jarrod Eddy Other [facility] Other 08-15-2023 09:38-0400Body ivkygs001.2 Jonn Black MD Work Phone: [phone]aUpxyle18-14-2568 09:38-0400Body mass index (BMI) [Ratio]27.08 kg/i3SdarnoTanvir Black MD Work Phone: [phone]qExluis27-35-3774 09:38-0400Body rkhonbufsti73.7 [degF]Tanvir Black MD Work Phone: [phone]qGdxiay15-58-0865 09:38-0400Body defmxq41.43 kg Tanvir Black MD Work Phone: [phone]pJnorrg59-74-3656 09:38-0400Diastolic blood mm[Hg]Tanvir Black MD Work Phone: [phone]mAoozmz69-66-3139 09:38-0400Heart rate79 /min Tanvir Black MD Work Phone: [phone]gMkhmsa91-99-7796 09:38-0400Respiratory rate20 /minTanvir Black MD Work Phone: [phone]bSmsejj26-04-6051 09:38-1311XeA2% (BldA) [Mass fraction]100 %Tanvir Black MD Work Phone: [phone]zTjpaql34-44-3957 09:38-0400Systolic blood alwidhez956 mm[Hg]Tanvir Black MD Work Phone: [phone]bRizhdl33-79-5794 21:05-0400Diastolic blood goehazex55 mm[Hg]Martin Mary Ann [address] [place], [place] 4639407-16-2023 21:05-0400Heart rate88 /minNoah Mary Ann [address] [place], [place] 4639407-16-2023 21:05-0400 Hourly RoundingNoah Mary Ann [address] [place], [place] 4639407-16-2023 21:05-0400 Promise to ReturnNoah Mary Ann [address] [place], [place] 4639407-16-2023 21:05-0400 Respiratory rate18 /minNoah Mary Ann [address] [place], [place] 4639407-16-2023 21:05-7699NvR2% (BldA) [Mass fraction]100 %Martin Mary Ann [address] [place], [place] [id number] 21:05-0400 Systolic blood wiyhhpre030 mm[Hg]Martin Mary Ann [address] [place], [place] [id number] 20:07-0400Body fpehanstgbs53.7 [degF]Martin Mary Ann [address] [place], [place] [id number] 20:07-0400 Diastolic blood uqrgvmdy44 mm[Hg]Martin Mary Ann [address] [place], [place] [id number] 20:07-0400Heart rate92 /minNoah Mary Ann [address] [place], [place] [id number] 20:07-0400 Respiratory rate18 /minNoah Mary Ann [address] [place], [place] [id number] 20:07-6041IlL2% (BldA) [Mass fraction]100 %Martin Mary Ann [address] [place], [place] [id number] 20:07-0400 Systolic blood gwxqwowt281 mm[Hg]Martin Reese [address] [place], [place] [id number] 09:11-0400 Diastolic blood jvedenqs50 mm[Hg]Brent Myron [address]06-14-2023 09:11-0400Heart rate82 /minBrent Sanches [address]06-14-2023 09:11-0400Mean blood spvpsezy17 mm[Hg]Brent Sanches [address]06-14-2023 09:11-0400 Respiratory rate16 /minBrent Sanches [address]06-14-2023 09:11-2910CqT0% (BldA) [Mass fraction]98 %Brent Sanches [address]06-14-2023 09:11-0400 Systolic blood nziqgizf124 mm[Hg]Brent Sanches [address]06-14-2023 07:45-0400Body nlenngmkpnz67.96 [degF]Brent Sanches [address] [place], [place] [id number] 07:45-0400 Diastolic blood xfldusah51 mm[Hg]Brent Sanches [address] [place], [place] [id number] 07:45-0400Heart rate95 /minBrent Sanches [address] [place], [place] [id number] 07:45-0400 Respiratory rate16 /minBrent Sanches [address] [place], [place] [id number] 07:45-3988HhO7% (BldA) [Mass fraction]100 %Brent Sanches [facility]06-14-2023 07:45-0400 Systolic blood icwvahmy140 mm[Hg]Brent Sanches [facility]05-16-2023 12:00-0400 Diastolic blood yxwnnzoc16 mm[Hg] 2FcaooSjrsom64-73-1900 12:00-0400Heart rate 78 /min 8FrzdwHwdzzr89-46-7393 12:00-0400Respiratory rate16 /min[address] StreetNynqoZnzyeq58-36-4757 12:00-4789RaF6% (BldA) [Mass fraction]94 %[address] 01-20-2023 12:00-0400Systolic blood nnqccvyw194 mm[Hg] 3FvgoxYpepoe00-63-6492 07:30-0400Body clrmucsvgry41.71 [degF] 7ZidtoMsafjd50-65-3694 09:49-0400Body .2 Jonn Black MD Work Phone: [phone]mCoklmi29-97-2853 09:49-0400Body mass index (BMI) [Ratio]27.28 kg/z8XynpbqTanvir Black MD Work Phone: [phone]eYrpywo34-55-1544 09:49-0400Body nssnairmfjx99.6 [degF]Tanvir Black MD Work Phone: [phone]mTzozud19-00-1225 09:49-0400Body kwoqwt37.02 kg Tanvir Black MD Work Phone: [phone] 09:49-0400Diastolic blood viibapol79 mm[Hg]Tanvir Black MD Work Phone: [phone]6MualdZjsnag51-18-4958 09:49-0400Heart rate79 /min Tanvir Black MD Work Phone: [phone]822TvyvnDcnzej40-20-6612 09:49-0400Respiratory rate20 /minTanvir Black MD Work Phone: [phone]592ZsdjzIuoqpn97-74-5101 09:49-5969FqV5% (BldA) [Mass fraction]100 %Tanvir Black MD Work Phone: [phone]yZaycyu54-81-7759 09:49-0400Systolic blood sjtqermr800 mm[Hg]Tanvir Black MD Work Phone: [phone]()[phone]pIxdayi07-39-6004 08:58-0400Body mass index (BMI) [Ratio]27.41 kg/m2Marcello Ibanez MD Work Phone: [phone]()[phone]aXbxqeu45-93-2354 08:58-0400Body gfqoewgjzto49.6 [degF]Marcello Ibanez MD Work Phone: [phone]()[phone]fauJsqyqp78-38-4967 08:58-0400Body upzzur87.38 kg Marcello Ibanez MD Work Phone: [phone]()[phone]nnyOjbvok98-88-9360 08:58-0400Diastolic blood iefnlrwh60 mm[Hg]Marcello Ibanez MD Work Phone: [phone]()[phone]shfZcrwvf54-61-2152 08:58-0400Heart rate79 /Jeniffer Ibanez MD Work Phone: [phone]()[phone]AzexeTmbhfp52-53-6200 08:58-0400Systolic blood zojujhrd780 mm[Hg]Marcello Ibanez MD Work Phone: [phone]()[phone]gGhiccb58-90-4942 09:49-0400Body ddcczo168.2 cm Dejuan Lechuga MD Work Phone: [phone]()[phone]bJmtzfr91-16-3754 09:49-0400Body mass index (BMI) [Ratio]28.05 kg/h5RroatDejuan Lechuga MD Work Phone: [phone]()[phone]ziiVnwbto62-59-9448 09:49-0400Body izskws73.24 kg Dejuan Lechuga MD Work Phone: [phone]()[phone]JcazsIefclb86-15-0630 09:49-0400Diastolic blood uzeoaldi21 mm[Hg]Dejuan Lechuga MD Work Phone: [phone]()[phone]XqzqtVhjhhb07-59-0121 09:49-0400Heart rate85 /minDejuan Lechuga MD Work Phone: [phone]079BxjobKexmoe61-28-9557 09:49-0422AwC9% (BldA) [Mass fraction]100 %Dejuan Lechuga MD Work Phone: [phone]9455VnjolZxnmyy37-68-8304 09:49-0400Systolic blood acfjyyoc154 mm[Hg]Dejuan Lechuga MD Work Phone: [phone]DvycsTncctm66-69-1244 11:23-0500Body mass index (BMI) [Ratio]26.63 kg/q0YncligTanvir Black MD Work Phone: [phone]2ZvfnuIgeudt87-76-4490 11:23-0500Body jzrbyragtaf59.6 [degF]Tanvir Black MD Work Phone: [phone]JvqhdLryais08-61-2514 11:23-0500Body xtlusk99.11 kg Tanvir Black MD Work Phone: [phone]hjhZvbggo90-38-3667 11:23-0500Diastolic blood zxxabugg52 mm[Hg]Tanvir Black MD Work Phone: [phone]02206OstmsJvcadm19-84-4062 11:23-0500Heart rate86 /min Tanvir Black MD Work Phone: [phone]0-125832BhdfnEithmh13-87-5851 11:23-0500Respiratory rate14 /minTanvir Black MD Work Phone: [phone]PiqsnIvvyqv30-28-2230 11:23-3264VyO1% (BldA) [Mass fraction]100 %Tanvir Black MD Work Phone: [phone]lhvKrjvtb83-37-9379 11:23-0500Systolic blood obihgubr295 mm[Hg]Tanvir Black MD Work Phone: [phone]preZnslop60-18-4784 09:49-0500Body mass index (BMI) [Ratio]26.59 kg/m2Marcello Ibanez MD Work Phone: [phone]1605IpwbmOeqfew36-72-7118 09:49-0500Body pbrqikbgnkx87.5 [degF]Marcello Ibanez MD Work Phone: [phone]0-740565GyjzqLdxtdw37-95-7895 09:49-0500Body .02 kg Marcello Ibanez MD Work Phone: [phone]-469052OnrkrCjhezy13-18-6246 09:49-0500Diastolic blood wvswapkr00 mm[Hg]Marcello Ibanez MD Work Phone: [phone]5133GafuwRvvyjc58-86-8843 09:49-0500Heart rate84 /minNealok Ibanez MD Work Phone: [phone]mlhqWewsqc82-64-6846 09:49-5640BoQ6% (BldA) [Mass fraction]100 %Marcello Ibanez MD Work Phone: [phone]mLdbuhy68-55-6871 09:49-0500Systolic blood ybnkqhsq553 mm[Hg]Marcello Ibanez MD Work Phone: [phone]335UblnzIjyekr72-53-8168 13:44-0500Body mass index (BMI) [Ratio]26.78 kg/d5EjicbgazjTheo Burks MD Work Phone: 1)[phone]-606607LxkhzMvxwal24-06-0311 13:44-0500Body hkivdepnfgf75.49 [degF]Theo Burks MD Work Phone: [phone])[phone]AlftdTynogk98-30-9930 13:44-0500Body .56 kg Theo Burks MD Work Phone: [phone]15212JveckKocuog59-46-2113 13:44-0500Diastolic blood joqvcktf41 mm[Hg]Theo Burks MD Work Phone: [phone]039CqxkqDhjhud72-38-5448 13:44-0500Heart rate69 /min Theo Burks MD Work Phone: [phone]2344ZjhvbAsljph88-95-3982 13:44-0500Respiratory rate18 /minTheo Burks MD Work Phone: [phone]1288ErxzuPqmzhe77-03-4955 13:44-8692JnI4% (BldA) [Mass fraction]99 %Theo Burks MD Work Phone: [phone]ceiUsovrg66-53-9192 13:44-0500Systolic blood euewaqrm449 mm[Hg]Theo Burks MD Work Phone: [phone]9BgfjlEuxrii51-67-6398 10:42-0500Body mass index (BMI) [Ratio]26.94 kg/w1QyazvnAbbey Alvarez MD Work Phone: [phone]YajvdTpzagy81-79-4129 10:42-0500Body xalpfrlmxcp83.2 [degF]Abbey Alvarez MD Work Phone: [phone])[phone]TaztbLdvsnv19-57-1155 10:42-0500Body yzaxjz37.02 kg Abbey Alvarez MD Work Phone: [phone]RucnfElgnrv91-21-1724 10:42-0500Diastolic blood ucycgcik27 mm[Hg]Abbey Alvarez MD Work Phone: [phone]BjehrZaihlw24-15-4100 10:42-0500Heart rate82 /min Abbey Alvarez MD Work Phone: [phone]4729AudseLintmz56-40-4940 10:42-0500Systolic blood relrbegi015 mm[Hg]Abbey Alvarez MD Work Phone: [phone]FbzgdGqtdzq38-51-0872 15:50-0500Heart rate78 /minAnn-Marie Bonner MD Work Phone: [phone]UqlpeGkcxdq79-02-3919 15:50-0500Respiratory rate14 /minAnn-Marie Bonner MD Work Phone: [phone]ZrtqeZneabg09-95-2280 15:50-7672GbO0% (BldA) [Mass fraction]98 %Ann-Marie Bonner MD Work Phone: [phone]klmRpkuvn48-04-3289 12:51-0500Body mass index (BMI) [Ratio]20.52 kg/m2Ann-Marie Bonner MD Work Phone: [phone]WgadmPpdenj79-46-4685 12:51-0500Body fmykjjuxtde32.49 [degF]Ann-Marie Bonner MD Work Phone: FjosfDrduxi68-559556WzsqdVnhadn56-71-9411 12:51-0500Body mcblew92.42 kg Ann-Marie Bonner MD Work Phone: XhbalFmpguu21-681305MoelvZhzrcc18-23-2737 12:51-0500Diastolic blood hwjyumku43 mm[Hg]Ann-Marie Bonner MD Work Phone: MbtjqEjrbdj35-779914DlvxxCoajug49-09-0794 12:51-0500Systolic blood gtxyztzc642 mm[Hg]Ann-Marie Bonner MD Work Phone: ZszreGlkmax10-926646UewhgVcjgwo05-88-7799 10:16-0500Body mass index (BMI) [Ratio]26.72 kg/x7AylixNenita Franco MD Work Phone: JzxcxEmebvo30-248857WbkmmFdbbee15-69-2493 10:16-0500Body vivaxpdrhuu34.6 [degF]Nenita Franco MD Work Phone: GrnmcZatiwb99-150042ZzfuwAfkcsz63-80-8006 10:16-0500Body .38 kg Nenita Franco MD Work Phone: ZuwosFbntmh68-031209IyexjVuaanu61-65-2532 10:16-0500Diastolic blood dzdlmetw32 mm[Hg]Nenita Franco MD Work Phone: XakajHtixjz96-076550JacbdGxqrue48-30-6104 10:16-0500Heart rate85 /minNenita Franco MD Work Phone: WpwerBxmbja09-750562KgqvcYbxkcq15-88-9267 10:16-0500Respiratory rate18 /minPasuzie Franco MD Work Phone: QrrusDqlvqp87-580716IqclsQmrbjd11-02-4558 10:16-3739ZcB6% (BldA) [Mass fraction]100 %Nenita Franco MD Work Phone: FarzsYtciwe19-740237UwoiwNhxlgt49-69-4876 10:16-0500Systolic blood rhpkyqdf638 mm[Hg]Nenita Franco MD Work Phone: JwzyyGguvrb47-728427VaziqVtfmep55-53-0060 13:12-0500Diastolic blood mhztlsux80 mm[Hg]Saskia Madison APRN-[employer] Work Phone: [phone]JfayeTqvfry29-69-9465 13:12-0500Systolic blood mm[Hg]Saskia Madison APRN-[employer] Work Phone: [phone]DdmuuCcppjl31-52-7401 13:10-0500Body mass index (BMI) [Ratio]27.1 kg/e4DosvgSaskia Madison APRN-[employer] Work Phone: [phone]KvtlbRdtrkd23-16-1204 13:10-0500Body dpeisxnjezy11.2 [degF]Saskia Maidson APRN-[employer] Work Phone: [phone]qSfnymb08-88-7134 13:10-0500Body .47 kg Saskia Madison APRN-[employer] Work Phone: [phone])[phone]UfhkeVrmfts57-62-7963 13:10-0500Heart rate84 /minSaskia Madison APRN-[facility] Work Phone: 1)[phone]TeeavPouqig33-30-0146 11:51-0500Body .2 cm Tanvir Black MD Work Phone: [phone]96754DsllaSlvrlx07-13-8299 11:51-0500Body mass index (BMI) [Ratio]26.78 kg/d3WzavcbTanvir Black MD Work Phone: [phone])[phone]PimpmJwuhsc51-31-1107 11:51-0500Body rooqycmpyli97.19 [degF]Tanvir Black MD Work Phone: [phone]UlhjwBnwegl33-21-9448 11:51-0500Body fpejsf97.56 kg Tanvir Black MD Work Phone: [phone]7466WkxbvSezeyi78-01-2273 11:51-0500Diastolic blood nwlvfigm36 mm[Hg]Tanvir Black MD Work Phone: [phone]56904ArrnpAgsxrg63-35-6280 11:51-0500Heart rate90 /min Tanvir Black MD Work Phone: [phone]0-628064FxsmtOnljjz45-09-3204 11:51-0500Respiratory rate14 /minTanvir Black MD Work Phone: [phone]SlmjsWpifmi35-08-6364 11:51-8181HiI9% (BldA) [Mass fraction]100 %Tanvir Black MD Work Phone: [phone]GtelaQpoanv35-87-7566 11:51-0500Systolic blood vhintdpn478 mm[Hg]Tanvir Black MD Work Phone: [phone]CnoyrYenzeg10-77-0253 10:03-0400Body ibywhh563.2 cm Tanvir Black MD Work Phone: [phone]GycqlMyivce02-14-1443 10:03-0400Body mass index (BMI) [Ratio]26.78 kg/x8ZasgheTanvir Black MD Work Phone: [phone]auuIssasg41-18-9616 10:03-0400Body qwylomgdydq34.4 [degF]Tanvir Black MD Work Phone: FnyezFxsnmt05-376858WffwqZrygbw88-64-3706 10:03-0400Body sitruk58.56 kg Tanvir Black MD Work Phone: [phone]ddjLsjrct32-32-8910 10:03-0400Diastolic blood cwqozwft34 mm[Hg]Tanvir Black MD Work Phone: [phone]FojqmMqaijw76-54-2185 10:03-0400Heart rate75 /min Tanvir Black MD Work Phone: [phone]YplutAwudfe99-38-2745 10:03-0400Respiratory rate16 /minTanvir Black MD Work Phone: [phone]YjqazMaxffb75-96-1781 10:03-0562UfM2% (BldA) [Mass fraction]100 %Tanvir Black MD Work Phone: [phone]WtdgkCltdyo42-07-9686 10:03-0400Systolic blood mm[Hg]Tanvir Black MD Work Phone: [phone]kdwjGdsymv75-11-3997 11:39-0400Body mass index (BMI) [Ratio]25.84 kg/b7AjksncTanvir Black MD Work Phone: [phone]aubUwtrla16-70-6467 11:39-0400Body txpxiscdlhd09.49 [degF]Tanvir Black MD Work Phone: [phone]vhfFhdvhp77-93-9466 11:39-0400Body idqgbd81.84 kg Tanvir Black MD Work Phone: [phone]UpiorGhucud56-68-9765 11:39-0400Diastolic blood kwsgrleb96 mm[Hg]Tanvir Black MD Work Phone: [phone]JorxsCeqjmg94-20-4549 11:39-0400Heart rate85 /min Tanvir Black MD Work Phone: [phone]KlfyfHyhype36-60-9970 11:39-0400Respiratory rate14 /minTanvir Black MD Work Phone: [phone]SmtzvIzrady60-12-1853 11:39-0950HxP1% (BldA) [Mass fraction]100 %Tanvir Black MD Work Phone: [phone]HmzdjUfgkpp33-51-7164 11:39-0400Systolic blood uzbtnilb143 mm[Hg]Tanvir Black MD Work Phone: [phone]ZtxkqOggsju57-48-3314 16:07-0400Diastolic blood kaatarto05 mm[Hg][facility]06-13-2022 16:07-0400Heart rate84 /min[facility] 16:07-0400Mean blood igjgxyck46 mm[Hg][facility]06-13-2022 16:07-0400Respiratory rate18 /min[facility] 16:07-9059UoJ7% (BldA) [Mass fraction]98 %[facility]06-13-2022 16:07-0400Systolic blood pressure 129 mm[Hg][facility]06-13-2022 15:18-0400 Diastolic blood gsvhtcni54 mm[Hg][facility] 02-17-2022 15:18-0400Heart rate79 /min[facility] 15:18-0400Mean blood ndfnilcp17 mm[Hg][facility]06-13-2022 15:18-0400Respiratory rate16 /[facility] 15:18-4610KoU5% (BldA) [Mass fraction]99 %[facility]06-13-2022 15:18-0400Systolic blood epdhqfvt358 mm[Hg][facility]06-13-2022 14:58-0400Diastolic blood xxxtjham42 mm[Hg][facility]06-13-2022 14:58-0400Heart rate79 /min[facility] 14:58-0400Mean blood xwginiiy47 mm[Hg][facility]06-13-2022 14:58-0400Respiratory rate18 /[facility] 14:58-6818ZlQ9% (BldA) [Mass fraction] 100 %[facility]06-13-2022 14:58-0400Systolic blood jzuzlslj742 mm[Hg][facility]06-13-2022 12:30-0400Body gjagtzjnqgc95.24 [degF][facility]06-13-2022 12:30-0400Heart yhfd255 /min[facility] 12:30-0400Respiratory rate18 /[facility] 10:220400Body wmitiv241.2 Jonn Black MD Work Phone: [phone]wjmaWacvfo34-62-4506 10:22-0400Body mass index (BMI) [Ratio]26.16 kg/t9GbfaiuTanvir Black MD Work Phone: [phone]ljkPfidtm86-78-3803 10:22-0400Body mxpvmwbdxub00.2 [degF]Tanvir Black MD Work Phone: [phone]naxAvohyv98-41-3398 10:-0400Body .75 kg Tanvir Black MD Work Phone: [phone]XbuagXgxhbn00-31-3945 10:22-0400Diastolic blood mm[Hg]Tanvir Black MD Work Phone: [phone]rszVxiihf53-10-8290 10:22-0400Heart mnlc977 /min Tanvir Black MD Work Phone: [phone]KfiasJziqfw00-70-5681 10:22-0400Respiratory rate16 /minTanvir Black MD Work Phone: [phone]YbtorYaxwue76-58-8973 10:8529GgG6% (BldA) [Mass fraction]100 %Tanvir Black MD Work Phone: [phone]CxkpbYzefan27-27-8113 10:22-0400Systolic blood fnvnattz581 mm[Hg]Tanvir Black MD Work Phone: [phone]scrdChpwun27-80-6656 14:20-0400Body aivkwwvuson69.29 [degF]Francisco Marino MD Work Phone: [phone]3-487381RgywyMjyubr97-96-3795 14:20-0400Diastolic blood owmsfqru18 mm[Hg]Francisco Marino MD Work Phone: [phone]6-721220EcbyhMbngkl19-30-6732 14:20-0400Heart rate83 /minFrancisco Marino MD Work Phone: [phone]0-186761EoczqDspebn04-12-5577 14:20-0400Respiratory rate18 /minFrancisco Marino MD Work Phone: [phone]0-922847SqbjxWcapdk78-62-9058 14:20-7136GoJ7% (BldA) [Mass fraction]100 %Francisco Marino MD Work Phone: [phone]5-210574TnnnuSbyqlq91-70-7673 14:20-0400Systolic blood afthlbpn109 mm[Hg]Francisco Marino MD Work Phone: [phone]8-314877RikytEtrnum37-65-4306 06:00-0400Body mass index (BMI) [Ratio]22.77 kg/s5EcjvkFrancisco Marino MD Work Phone: [phone]0-010980UnfbnUkoocr82-12-9161 06:00-0400Body ovfqyx96.95 kg Francisco Marino MD Work Phone: [phone]8-702344OskgiLfzduh63-58-0646 18:36-0400Heart rate96 /Sara Marino MD Work Phone: [phone]8-946139JizdpNgvgcf58-82-7058 21:47-0400Heart rate76 /Sara Marino MD Work Phone: [phone]2-096942VyessSaofin64-75-9277 14:00-0400Hourly Rounding Aldair Ila [facility]05-04-2022 14:00-0400 Promise to ReturnManjaden Ila [facility]05-04-2022 14:00-9080OcZ8% (BldA) [Mass fraction]100 %Aldair Ila [facility]05-04-2022 08:00-0400Body wzesgf979.2 Marisabel Marino MD Work Phone: [phone]40038KeqswZewwgr38-82-7066 05:00-0400Diastolic blood nblicmxm05 mm[Hg]Aldair Ila [facility]05-04-2022 05:00-0400Heart rate87 /minManjaden Ila [facility]05-04-2022 05:00-0400Mean blood mm[Hg]Aldair Ila [address] [place], [place] 9819805-04-2022 05:00-0400 Respiratory rate18 /minAldair Galiciaer [address] [place], [place] 9819805-04-2022 05:00-0400 Systolic blood rftrgxxa502 mm[Hg]Aldair Ila [address]05-04-2022 04:00-0400Body mvgeykfkltx56.96 [degF]Aldair Ila [address] [place], [place] 9819805-04-2022 04:00-0400 Diastolic blood ztcizohp18 mm[Hg]Aldair Ila [address]05-04-2022 04:00-0400Heart rate96 /Hunter Ila [address] [place], [place] 9819805-04-2022 04:00-0400Mean blood iifwckns79 mm[Hg]Aldair Ila [address] [place], [place] 9819805-04-2022 04:00-0400 Respiratory rate20 /minAldair Ila [address] [place], [place] 9819805-04-2022 04:00-1164RpC3% (BldA) [Mass fraction]97 %Aldair Ila [address] [place], [place] 9819805-04-2022 04:00-0400 Systolic blood yjlikrab790 mm[Hg]Aldair Ila [address] [place], [place] 9819805-04-2022 03:00-0400 Diastolic blood mm[Hg]Aldair Ila [address] [place], [place] 9819805-04-2022 03:00-0400Heart rate80 /minAldair Ila [address] [place], [place] 9819805-04-2022 03:00-4257ZmZ4% (BldA) [Mass fraction]98 %Aldair Thorpe [address] [place], [place] 9819805-04-2022 03:00-0400 Systolic blood wuvwsbcf436 mm[Hg]Aldair Thorpe [address] [place], [place] 4807605-04-2022 00:00-0400Body zvwlehtegkm53.42 [degF]Aldair Thorpe [address] [place], [place] 4807605-03-2022 20:30-0400Body awbuncgabyh05.06 [degF]Aldairjaden Thorpe [address] [place], [place] 4807605-03-2022 20:00-0400Blood Pressure LocationAldair Ila [address] [place], [place] 4807605-03-2022 19:13-0400Heart kvva621 /minDuaneinder Ila [address] [place], [place] 4807605-03-2022 19:00-0400Blood Pressure LocationAldair Ila [address] [place], [place] 4807605-03-2022 18:00-0400Blood Pressure LocationAldair Ila [address] [place], [place] 9819805-03-2022 17:04-0400Heart [id number] /minManinder Ila [address] [place], [place] [id number] 14:32-0400Heart [id number] /minManinder Ila [address] Encounters Encounter DateEncounter TypeCare ProviderFacilityStart: 95-33-7595srztdbqlzhmerle RamosFacility:[facility] PCStart: 05-19-2025 End: 52-50-4789qjnmxvqskxFmgaalpx Talal SarminiFacility:FTMCStart: 04-07-2025 End: 16-25-7683uaeadztdutHgetr J SosinskiFacility:[place] PCStart: 04-07-2025 End: 63-24-5055Qlnpjlq encounter procedureVic PECKP-C [phone]-SwlflGal[facility] Start: 03-13-2025 End: 93-20-0570Qgrcivejuu Vickie Ramos RN Work Phone: Referring PhysicianComment on above:PVD (peripheral vascular disease) (Primary Dx); Right leg pain; Cellulitis of right leg; Non-pressure chronic ulcer of left lower leg, unspecified ulcer stage (HCC) Start: 03-07-2025 End: 61-80-7665jiukblzcghAyfuv J SosinskiFacility:[facility] PCStart: 03-07-2025 End: 03-66-5548Rhdttyo encounter procedureVic CORTEZ-C [phone]-IcekwGalion [facility] Start: 03-06-2025 End: 29-41-9166ngpzdgyrddKrhdw J SosinskiFacility:CD:[id number]: 01-24-2025 End: 77-37-2650Bwbczf Melissa Hickey PhD Work Phone: ana NICOLÁSUSKYStart: 01-24-2025 End: 93-11-1456Cthznh Melissa Hickey PhD Work Phone: ana SANDUSKYStart: 01-24-2025 End: 86-96-4808Qtfjjnk encounter procedureKenn Hickey PhD Work Phone: ana DEBORAHYComment on above:Other chronic pain (Primary Dx); Spinal cord stimulator statusStart: 01-24-2025 End: 51-28-4200hfsgpfikpgSOJFNGHV DENBESTENNot AvailableStart: 01-12-2025 End: 15-59-6468smuqflcykaDrqbm J SosinskiFacility:FTMCStart: 01-12-2025 End: 13-74-4340Warxvvk encounter procedureEvelio Carr [facility] Start: 01-03-2025 End: 03-05-5613jvyukumjrpYprotqmb A. JonesFacility:FTMCStart: 01-03-2025 End: 96-14-3304Lwet ManagementEvelio Carr [facility] Start: 12-21-2024 End: 27-35-0161unvxgfwpupMtsfw J SosinskiFacility:[facility] PCStart: 12-20-2024 End: 61-58-0662tbytwiqderYbrpwu SpringerFacility:FTMCStart: 12-20-2024 End: 97-41-2470Nndzgfs encounter procedureAmanda Loco [facility] Start: 11-28-2024 End: 94-54-7559zzmdiaabeqHayiql SpringerFacility:FTMCStart: 11-28-2024 End: 36-32-3595Ikenhwf encounter procedureAmanda Loco [facility] Start: 11-21-2024 End: 33-59-8708daqhhpzaptWuijqg SpringerFacility:FTMCStart: 11-21-2024 End: 13-19-3130Lsybpzt encounter procedureAmanda Loco [facility] Start: 11-21-2024 End: 75-73-5001ncegorkurcHgiyqpza Talal SarminiFacility:[facility] DHStart: 11-21-2024 End: 95-61-4537Ojiqarn encounter procedureAmanda [place] [facility] Start: 11-18-2024 End: 08-70-1111Byhrdod encounter procedureKeith Patricia [facility] Start: 11-18-2024 End: 24-57-0599sxlxpqywwfCegpg PeterSarah ParassabrinajolynnFacility:FTMCStart: 11-18-2024 End: 13-83-5558flohblodulLwiqxicj Talal SarminiFacility:FTMCStart: 11-18-2024 End: 85-33-3230Jmvhstb encounter procedureMuhammad Talal Bryannamini [facility] Start: 11-11-2024 End: 94-95-8803slflnpvwwdUkgpqvgl Talal SarminiFacility:FTMCStart: 11-09-2024 End: 71-42-1838bjyqnkfdlbYdelvdky A. JonesFacility:FTMCStart: 11-09-2024 End: 66-72-0915Dsyvvya encounter procedureEvelio Carr [facility] Start: 10-26-2024 End: 35-57-9518dibdiklvvdWbabaksr A. JonesFacility:FTMCStart: 10-26-2024 End: 61-31-1234Lajegnx encounter procedureEvelio Carr [facility] Start: 10-05-2024 End: 44-43-3424rlifmdwyycTvtie J SosinskiFacility:[facility] PCStart: 10-05-2024 End: 76-30-0681Wwnbfll encounter procedureVic Ramos CREEL CLEANER-C [phone]-NoxtnGalion [facility] Hospital [facility] Start: 09-29-2024 End: 24-08-9708oqpycqugudTziogow AdamowiczFacility:FTMCStart: 09-29-2024 End: 92-55-2411Nswkcdk [facility] Start: 09-16-2024 End: 05-25-0050goppeynqjtQoqgznp AdamowiczFacility:FTMCStart: 09-16-2024 End: 21-05-3826Fumwuuc encounter procedureG[facility]be[facility] Start: 08-19-2024 End: 31-27-4311ejfbniuulpWuiaxjflr L ClarkFacility:Ian PCStart: 08-19-2024 End: 81-53-5453Gldyvys encounter procedureLoreta Cummings [phone]-WevyeGalion Community Hospital [facility] Start: 08-11-2024 End: 59-95-8963hizkwyspmrKckdrhj AdamowiczFacility:FTMCStart: 08-11-2024 End: 90-60-5647Anrclzh encounter procedureG[facility] Start: 07-09-2024 End: 97-00-5903qpraazsxzjRvczuyt AdamowiczFacility:FTMCStart: 07-09-2024 End: 08-81-8218Ypjujvl encounter procedureGlenbeigh Hospital Start: 06-09-2024 End: 43-92-5420kzdxioyumqGtrrwzyn Talal SarminiFacility:[facility] DHStart: 06-09-2024 End: 89-33-5150Gytkmms encounter procedureMuhammad Talal Sarmini [phone]-JgbdfGalion [facility] Start: 05-24-2024 End: 98-88-9254qoghorsmxoAkrpdyac Talal SarminiFacility:FTMCStart: 05-24-2024 End: 99-47-2776Wncgelj encounter procedureMuhammad Talal Bryannamini [facility] Start: 03-71-4475bzbebbcjtcNtpiviicb L Clark Facility:[facility] PCStart: 05-12-2024 End: 79-77-8963ogyoynahqsVdsybhpy Taleduar GouldminiFacility:[facility] DHStart: 05-12-2024 End: 41-23-8819Bgxioga encounter procedureMukassandrad Talal Bryannamini [phone]-CtitgGalion [facility] Hospital [facility] Start: 05-12-2024 End: 23-38-0987Idlusj outpatient visit 15 minutesMofela Bertrand MD Work Phone: [facility] SurgeryComment on above:Lymphedema (Primary Dx)Start: 05-11-2024 End: 98-92-6608pyechiyesoElzhLeatha GonzalesFacility:FTMCStart: 05-11-2024 End: 02-93-0123Nyumgwp encounter procedureQuorum Healthanil [facility] Start: 05-06-2024 End: 87-40-9845jzlfxsmqpwWvebgid AdamowiczFacility:FTMCStart: 05-06-2024 End: 53-24-3217Wrxhnyq encounter procedureGlenbeigh Hospital Start: 04-29-2024 End: 39-45-2178fuszhftmcrZzyfosdhd L ClarkFacility:[place] PCStart: 04-29-2024 End: 59-42-8300Ejpdhir encounter Ray Cummings [phone]-FvlurGalion Community Hospital [facility] Start: 04-27-2024 End: 02-13-1294Tcggautcoi and management of inpatientOMAR [facility] HospitalStart: 04-26-2024 End: 47-34-5443Cqohunjolh and management of inpatientMOHAMED F JERZYProMedica Ma HospitalStart: 04-26-2024 End: 22-39-3227Zdxhtrmrtl and management of inpatientMOHAMED F JERZYProMedica Ma HospitalStart: 04-21-2024 End: 22-41-2833Tpknkfkie to [facility] planoMet Pat Phone Call Provider 2 [facility] ERtart: 04-21-2024 End: 60-43-3763Olrdccdgdw and management of inpatientELIZABEPIOTR CUMMINGSProMedica Ma HospitalStart: 80-82-1072ftpkytaowsOoauovjpa L JohnFacility:Ian YOUNG Start: 04-14-2024 End: 35-56-1365Nbesml OnlyAngie Essex HospitalProMedica Physicians [facility] Vascular SurgeryStart: 04-14-2024 End: 79-90-7070Greduv outpatient new 45 minutesMohamed Quinn Jerzy MULTANI Work Phone: [facility] Vascular SurgeryComment on above:Varicose veins of both lower extremities with pain (Primary Dx); AVM (arteriovenous malformation)Start: 04-13-2024 End: 09-88-0747Ibw-admission assessmentKavon CartyOhioHealth Doctors Hospital Start: 04-05-2024 End: 31-48-9049jtagpeqqckPnouhddhz L JohnFacility:CD:[id number]: 03-17-2024 End: 51-83-3255wilgamincaZwgodcjzs L JohnFacility:FTMCStart: 03-17-2024 End: 18-15-9557Ofodljh encounter procedureMarc Liz [facility] Start: 03-14-2024 End: 48-84-9042mvmuzozngmUGWCSV-BC Ella GonzalesFacility:FTMCStart: 03-14-2024 End: 51-39-8108Trbvora encounter procedureElla Gonzales [facility] Start: 03-02-2024 End: 51-64-8445xkpuvhdppmVprk Katie DemstefanyFacility:FTMCStart: 03-02-2024 End: 11-34-6221Vdwxelf encounter procedureElla Gonzales [facility] Start: 02-25-2024 End: 85-75-7618tweijhuczzAotmnpvdy L ClarkFacility:FTMCStart: 02-25-2024 End: 81-10-6870Ftgmnun encounter procedureElla Gonzales [facility] Start: 02-20-2024 End: 45-59-2945fsnjlzbtzvRRGUNL- Ella MohandarcyFacility:FTMCStart: 02-20-2024 End: 59-97-5439Bbzxoda encounter procedureElla Gonzales [facility] Start: 02-06-2024 End: 12-31-3070ChxipxYmqz Patel MD Work Phone: [facility] LiverComment on above:RefillStart: 01-27-2024 End: 84-29-8456skbiormwbdTyyoqybhx L ClarkFacility:Ian PCStart: 01-27-2024 End: 84-12-3404Jhmuqic encounter procedureLoreta Cummings [phone]-MqslfGalion Community Hospital [facility] Start: 12-31-2023 End: 19-98-3106byrwkqejfnLkgrsdelz L ClarkFacility:FTMCStart: 12-31-2023 End: 30-77-9833Kfgdtrk encounter procedureLoreta Cummings [facility] Start: 12-30-2023 End: 90-87-0935ygsvtqtsuvOSXKSRamon MCCULLOUGHFacility:[facility] Start: 12-30-2023 End: 52-11-5962Hcqjofa encounter procedureSstephanie Zuñiga MD Work Phone: General SurgeryComment on above:Gallstones (Primary Dx)Start: 12-23-2023 End: 00-21-6052vsxrwcnhreBvyiowdue L ClarkFacility:[place] PCStart: 12-23-2023 End: 53-82-9467Vhdhrqd encounter procedureLoreta Cummings [phone]-TeuaiGalion Community Hospital [facility] Start: 12-21-2023 End: 49-04-4791ckybohoqhtZzcahhgcz L ClarkFacility:FTMCStart: 12-21-2023 End: 65-87-0272Pzdnpad encounter procedureLoreta Cummings [facility] Start: 12-14-2023 End: 04-12-0911kmbueeviksEzglitrtx L ClarkFacility:CD:[id number]: 12-11-2023 End: 09-89-8396AqxsclghyzlSxuar MoussawiOhio State Harding Hospital Start: 12-11-2023 End: 67-14-2333Pxmpkdf encounter procedureLoreta Cummings [facility] Start: 11-11-2023 End: 32-80-2554Bgboylr encounter procedureMuluisa Evans [facility] Start: 10-28-2023 End: 23-70-0060Akdmpjv encounter procedureElitiago L John [phone]-DycsdGalion Community Hospital [facility] Start: 10-01-2023 End: 38-88-4978Wublxzhuar hospital visit by physicianTanvir Black MD Work Phone: [facility] Oncology MedicalComment on above: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)Start: 10-01-2023 End: 37-96-6628Isptycd encounter procedureLoerta Cummings [phone]-BrqmgGalion Community Hospital [facility] Start: 10-01-2023 End: 00-35-2519azbpxaodlzBHFMVWFYW LIANGFacility:METROHealthStart: 09-27-2023 Letter encounterTheo Burks MD Work Phone: MetroHealthStart: 09-21-2023 End: 24-31-9343Kemabhs encounter procedureKeith Patricia [phone]-WtpfuGalion Community Hospital [facility] Start: 09-03-2023 End: 21-16-9612Gazsnuo encounter procedureMuluisa Evans [facility] Start: 09-01-2023 End: 02-05-4447Zgkwgzv encounter procedureMuluisa Duenasal Sarmini [phone]-FphwiGalion Community Hospital [facility] Start: 08-26-2023 End: 13-64-2613Dmjfllh encounter procedureLoreta Cummings [phone]-SwuvnGalion Community Hospital [facility] Care Start: 97-86-8334JewmptEwaljz Bah MD Work Phone: [facility] Oncology MedicalComment on above:Refill Start: 08-06-2023 End: 27-45-5337Mwiqqil encounter procedureTeddy Hitchcock [facility] Start: 08-03-2023 End: 85-69-3467GabokzqifAmpmridfq L Clark [facility] Start: 07-24-2023 End: 19-46-9102Gco Drop offLoreta Cummings [facility] Start: 07-24-2023 End: 00-40-2896Awbzchf encounter Ray Cummings [phone]-NmvmqGalion Community Hospital [facility] Start: 07-23-2023 End: 37-74-9786Rrfvtrr encounter procedureTeddy Hitchcock [facility] Start: 11-29-9231I-mail encounter from Onesimo Black MD Work Phone: [facility] Oncology MedicalStart: 25-17-3176Aqjdxta encounter Javier Black MD Work Phone: [facility] Oncology MedicalComment on above:Had to reschedule appointmentStart: 07-16-2023 End: 76-68-7959Zhtgliq encounter Mike Hitchcock [facility] Start: 03-96-6214SysdguHlvq Patel MD Work Phone: [facility] LiverComment on above:RefillStart: 73-52-4325LydwolDiyfel Bah MD Work Phone: [facility] Oncology MedicalComment on above:Refill Start: 07-06-2023 End: 91-32-5035Jhh-admission assessmentJoyesica Gauthiery [facility] Start: 06-25-2023 End: 65-04-6698Gpdggfa encounter procedureTeddy Rodarte Moyanicky [facility] Start: 06-19-2023 End: 03-00-4424Zjbmqxklo department patient visitJo Jeremy [facility] Start: 06-18-2023 End: 42-60-5570Ewwvsdb encounter procedureJoyesica Gauthiery [facility] Start: 06-04-2023 End: 73-45-4011Pcgyhii encounter procedureTeddy Gauthiery [facility] Start: 05-25-2023 End: 71-40-7586Gxtswkv encounter procedureJoyesica Rodarte Moyanicky [facility] Start: 05-14-2023 End: 59-11-9373Jbyxass encounter procedureJoyesica Gauthiery [facility] Start: 05-07-2023 End: 37-64-9206Pelqxbo encounter procedureJoyesica Roblerourany [facility] start: 04-30-2023 End: 92-64-6775Rch-admission assessmentJoyesica Gauthiery [facility] Start: 04-24-2023 End: 60-32-2901zosfwjiejbKijwxiz Buehrer Other [facility] mPort Other Start: 54-71-6609Ajkenl outpatient new 45 minutes Jarrod Schaefer Vascular SurgeryStart: 31-90-0091TmpagcJszayr Bah MD Work Phone: [facility] Oncology MedicalComment on above:Refill Start: 04-23-2023 End: 51-04-6851Mlnrrpc encounter procedureTeddy Hitchcock [facility] Start: 43-07-5618yjxuqfjqjgMtipil Bah MD Work Phone: [facility] Oncology MedicalComment on above:lab resultsStart: 60-16-8002C-mail encounter from Onesimo Black MD Work Phone: [facility] Oncology MedicalStart: 04-21-2023 End: 16-71-5086Kyjvfan encounter Stephen Black MD Work Phone: [facility]Start: 04-21-2023 End: 61-65-6040Bxrrzrmaui hospital visit by Hank Hernandez RNMetHocking Valley Community Hospital Oncology MedicalComment on above:Dx: Multiple myeloma, remission status unspecified (HCC) (Primary Dx)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)Start: 04-16-2023 End: 45-27-2879Yattaad encounter procedureTeddy Hitchcock [facility] Start: 04-13-2023 End: 29-79-5973Powkxkw encounter procedureTeddy Hitchcock [facility] Start: 03-22-2023 End: 17-03-3423Fkaobdazp department patient visitMartin Reese [facility] Start: 19-42-6038Xlxgir Janee Black MD Work Phone: [facility] CenterComment on above:RefillStart: 03-16-2023 End: 36-14-3046Zecgoiy encounter procedureTeddy Hitchcock [facility] Start: 19-04-5940ZbvuzvUsvqecyjg Liang MD Work Phone: [facility] HospitalComment on above:RefillPrior AuthorizationStart: 03-05-2023 End: 97-55-5382Zkibviz encounter procedureTeddy Hitchcock [facility] Start: 03-88-7268Ksmefrzbp encounterSusanyla Telmanik TUMBLING MACHINE OPERATOR-GRINDER MILL OPERATOR Work Phone: [facility] HospitalComment on above:Left Message To Call BackStart: 02-18-2023 End: 54-87-0830Fydilhvta department patient visitBrent Sanches [facility] Start: 69-70-9811FknymyTobpy Danawala MD Work Phone: [facility] HospitalComment on above:RefillStart: 01-20-2023 End: 03-17-6557Aeyrcnyudt hospital visit by physicianBarrett Ip/Op Angio 1[facility] RadiologyComment on above:Coagulation defect (HCC) (Primary Dx); Alcoholic fatty liver; Hyperbilirubinemia; Alcoholic hepatitis, unspecified whether ascites presentStart: 01-12-2023 End: 06-18-6423Dcxlsbpbec hospital visit by Jennifer Lucas RN [facility] Oncology MedicalComment on above: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)Start: 01-12-2023 End: 74-84-5641Stboqc outpatient visit 25 minutesMarcello Ibanez MD Work Phone: [facility] LiverComment on above:Liver fibrosis (Primary Dx); Alcohol use disorder in remission; Elevated liver enzymes; Jaundice; Body mass index (BMI) 27.0-27.9, adultStart: 23-39-1789Ghhpsi encounterTheo Burks MD Work Phone: [facility] SystemroHealthStart: 12-16-2022 End: 99-80-5654Cijlan outpatient visit 15 minutesDejuan Lechuga MD Work Phone: [facility] HospitalComment on above:Rib pain (Primary Dx); Alcoholic cirrhosis of liver without ascites (HCC); Body mass index (BMI) 28.0-28.9, adultStart: 12-15-2022 End: 76-99-9230Yclf/qhp telephone evaluation 07-27 Gilberto Burks MD Work Phone: [facility] MedicineComment on above:Rib pain (Primary Dx)Start: 72-43-2904Bjkryh encounterTheo Burks MD Work Phone: [facility] MedicineStart: 76-31-0707Zdfcnhlxy encounterTheo Burks MD Work Phone: [facility] MedicineStart: 99-21-7155AlicutIldl Patel MD Work Phone: [facility] LiverComment on above:RefillStart: 11-13-2022 End: 62-35-9490Wcowkyywvg hospital visit by Carole Black MD Work Phone: [facility] Oncology MedicalComment on above: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)Start: 39-48-7736Amyzap encounterTheo Burks MD Work Phone: [facility] GastroenterologyStart: 10-27-2022 End: 77-44-0465Ymtqyg outpatient visit 25 minutesMarcello Ibanez MD Work Phone: [facility] LiverComment on above:Alcoholic cirrhosis of liver without ascites (HCC) (Primary Dx); NauseaAlcoholic fatty liver (Primary Dx); Nausea; Hyperbilirubinemia; Alcoholic hepatitis, unspecified whether ascites presentAlcoholic fatty liver (Primary Dx); Nausea; Hyperbilirubinemia; Alcoholic hepatitis, unspecified whether ascites present; Body mass index (BMI) 26.0-26.9, adultStart: 65-75-2676EzajkaEkzsea Dalal MD Work Phone: [facility] LiverComment on above:RefillI have a few questionsStart: 76-52-4991Vmyclu encounterTheo Burks MD Work Phone: [facility] CenterStart: 76-23-2305Gntpfbnei encounterTanika Arias RN Work Phone: [facility] LineComment on above:Cancel Appointment Start: 66-52-5822Kkovbh OnlySaskia Madison TUMBLING MACHINE OPERATOR-GRINDER MILL OPERATOR Work Phone: [facility] [place] LiverStart: 35-29-1538Zfpqjt Only Samanhta Stauffer TUMBLING MACHINE OPERATOR-GRINDER MILL OPERATOR Work Phone: [facility] [place] GastroenterologyStart: 08-29-2022 End: 86-21-2490Hxkl/qhp telephone evaluation 5-10 Gilberto Burks MD Work Phone: MetLouis [facility] Medical CenterComment on above:Cellulitis, unspecified cellulitis site (Primary Dx); Muscle sorenessStart: 08-25-2022 End: 39-71-9796Nphlpk Clementine Alvarez MD Work Phone: [facility] GastroenterologyComment on above:Arrived Start: 08-25-2022 End: 44-63-8041Bumkbu outpatient visit 25 minutesAbbey Alvarez MD Work Phone: [facility] LiverComment on above:Alcoholic hepatitis without ascites (Primary Dx); Alcoholic cirrhosis of liver without ascites (HCC); 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)Right leg swelling (Primary Dx); Cellulitis, unspecified cellulitis site; Nausea; Body mass index (BMI) 26.0-26.9, adultAlcoholic hepatitis without ascites (Primary Dx); Alcoholic cirrhosis of liver without ascites (HCC); 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); Body mass index (BMI) 26.0-26.9, adultStart: 14-29-1863nczrhfohffBzncm Ryan Dedinsky [facility] Oncology MedicalComment on above:internal med request Start: 67-08-1703I-mail encounter from caregiverJim Hill RN [facility] Systemro[facility] Oncology MedicalStart: 73-36-2550Jevunm encounterMetHocking Valley [facility] [place] UltrasoundStart: 23-78-9037Rfwlxt Alice lBack MD Work Phone: [facility] Oncology MedicalStart: 08-15-2022 ambulatoryTanvir Black MD Work Phone: [facility] Oncology MedicalComment on above:Severe painStart: 98-97-9846I-mail encounter from Onesimo Black MD Work Phone: [facility] Oncology MedicalStart: 08-15-2022 End: 49-00-1804Rbxfnmryp department patient visitAnn-Marie Bonner MD Work Phone: [facility] Emergency MedicineComment on above: Leg/thigh symptoms (Pt states has infection in R leg x 4 days, seen yesterday for same)Start: 08-15-2022 End: 63-22-7513Smtibf outpatient new 30 minutesNenita Franco MD Work Phone: [facility] CareComment on above:Cellulitis, unspecified cellulitis site (Primary Dx); Body mass index (BMI) 26.0-26.9, adultStart: 65-93-0070Vgscuy encounter [facility] Oncology MedicalStart: 08-14-2022 End: 19-90-6923Thlepb consultation new/estab patient 60 minSaskia Madison APRN-GRINDER MILL OPERATOR Work Phone: [facility] LiverComment on above:Alcoholic cirrhosis, unspecified whether ascites present (HCC) (Primary Dx); Iron deficiency anemia, unspecified iron deficiency anemia type; Alcoholic cirrhosis of liver without ascites (HCC); Body mass index (BMI) 27.0-27.9, adultStart: 08-14-2022 End: 34-12-3395Jgaojwukja hospital visit by Atul Grimaldo RNMetroHealth Oncology MedicalComment on above:Dx: Thrombocytopenia (HCC) (Primary Dx)Start: 08-14-2022 End: 75-64-9751Xjsmik outpatient visit 40 Enrique Black MD Work Phone: [facility] Oncology MedicalComment on above: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)Start: 08-08-2022 Xander Black MD Work Phone: [facility] Oncology MedicalComment on above:Question Start: 30-04-3201B-mail encounter from Onesimo Black MD Work Phone: [facility] Oncology MedicalStart: 05-06-2022 End: 06-62-2654Uvfssx outpatient visit 40 Enrique Black MD Work Phone: [facility] Oncology MedicalComment on above: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)Start: 05-06-2022 End: 60-02-3445Rwoiuedlnh hospital visit by Oscar Canela RN Work Phone: [facility] Oncology MedicalComment on above: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)Start: 77-54-5033Zzcsgd encounterMetroHealth CardiologyStart: 12-43-6970Fdqwxe encounterMetroHealth Oncology MedicalStart: 03-13-2022 End: 72-29-0289Khmmigdcrc hospital visit by Gurinder Le RN Work Phone: [facility] Oncology MedicalComment on above: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 [facility] Comment on above:Prior AuthorizationStart: 01-08-2022 End: 69-53-6337Emitwidrpc and management of inpatientFrancisco Marnio MD Work Phone: Inpatient 10BStart: 01-07-2022 End: 00-52-5106Siuzugcxzz and management of inpatientAldair Thorpe [facility] Procedures DateProcedureProcedure DetailPerforming ClinicianStart: 35-79-5499Keyjj anesthetic saphenous nerve blockBrayanni Carr start: 07-50-0274QynycsdleeefrjacburwzvztueKaltnsmn Sarmini Start: 77-72-1842IoxeubmostkfucbzxckgedvfpcCeehyreg Sarmini Start: 31-42-6316KzmktdbbrvqirhnfcosonnhnxvUglbuyspz Clark Comment on above:3 large esophageal varices banded, PHG Start: 39-39-8984Gdrrric function panelTanvir Black MD Work Phone: Start: 70-18-2970Qjgxzch dehydrogenase ldhTanvir Black MD Work Phone: [phone]: 25-35-3476Fpdnn v surg pathology gross&microscopic examAndrecharmaine Babin MD Work Phone: [phone]: 16-35-9852Fwkiqs vngrph wdg/fr hemodyn eval rs&Andry Ibanez MD Work Phone: [phone]: 36-33-5424Nabltjpfujvpj biopsy rs&Andry Ibanez MD Work Phone: [phone]: 28-42-0461Ojwudomyarn timeErica Rock MD Work Phone: [phone]: 15-57-7662Qeuyp count complete automatedMarcello Ibanez MD Work Phone: [phone]: 07-27-2817Pnnanbg function Radha Ibanez MD Work Phone: [phone]: 72-30-7321Ycxmk-fetoprotein serumSaskia Madison TUMBLING MACHINE OPERATOR-GRINDER MILL OPERATOR Work Phone: [phone]: 32-97-3868Settqbmyz globulin direct each antiserumTanvir Black MD Work Phone: [phone]: 14-42-1370Tfhog of ferritinAbbey Alvarez MD Work Phone: [phone]: 09-28-7993Vwztkmu function Ashley Alvarez MD Work Phone: [phone]: 15-31-1372Tlswzshddj exam knee complete 4/more Macey French MD Work Phone: Start: 42-43-0739Tftqr dip stick/tablet rgnt auto w/o microscopyTanvir Black MD Work Phone: [phone]: 84-19-2837Kghrrhp function Latia Black MD Work Phone: [phone]: 08-14-2022 End: 31-84-1543Ckeepuy dehydrogenase Montez Black MD Work Phone: [phone]: 61-60-0083Jxxodre function Latia Black MD Work Phone: [phone]: 12-22-7189Znbztqf dehydrogenase Montez Black MD Work Phone: [phone]: 72-34-9310Wgfseyx function Latia Black MD Work Phone: [phone]: 92-65-2727Gaghwrq dehydrogenase Montez Black MD Work Phone: [phone]: 07-53-8149Kbkshrw function Latia Black MD Work Phone: [phone]: 83-32-1929Fegpcse dehydrogenase Montez Black MD Work Phone: [phone]: 15-46-4596Olkzvma function Howie Chua MD Work Phone: [phone]: 01-17-2022 End: 25-99-2271Vltrdtz dehydrogenase ldhChristopher De La Vega DO Work Phone: [phone]: 24-59-2931Xcztmxx blood reagent Mayo Umanzor MD Work Phone: [phone]: 31-72-2527Jqnscsi blood reagent Mayo Umanzor MD Work Phone: [phone]: 71-43-4075Ffcqfhs blood reagent Mayo Umanzor MD Work Phone: [phone]: 18-04-6462Awjkpse blood reagent Mayo Umanzor MD Work Phone: [phone]: 86-05-8351Bffrtme function Howie Chua MD Work Phone: [phone]: 26-96-5194Iebtfof dehydrogenase ldhChristopher De La Vega DO Work Phone: [phone]: 62-51-1591Lzopemr blood reagent Alyson Santana MD Work Phone: [phone]: 37-47-6345Jgyzxfo blood reagent Alyson Santana MD Work Phone: [phone]: 99-73-1309Tzcxpvx blood reagent Alyson Santana MD Work Phone: [phone]: 68-11-5957Tikhjqg function Howie Chua MD Work Phone: [phone]: 01-15-2022 End: 48-88-3914Oecbqkr dehydrogenase ldhChristopher De La Vega DO Work Phone: [phone]: 63-80-0871Ozvbofg blood reagent Alyson Santana MD Work Phone: [phone]: 86-12-3786Wwdbzze blood reagent Alyson Santana MD Work Phone: [phone]: 15-69-0260Wrtalrp function Howie Chua MD Work Phone: [phone]: 01-14-2022 End: 10-91-7435Zeljfzs dehydrogenase ldhChristopher De La Vega DO Work Phone: [phone]: 58-47-4795Bgohovn blood reagent Alyson Santana MD Work Phone: [phone]: 94-42-5098Dvkjuem blood reagent Alyson Santana MD Work Phone: Start: 81-43-1261Jfdpzwu blood reagent Alyson Santana MD Work Phone: Start: 06-39-4210Zjacjjq function Howie Chua MD Work Phone: [phone]: 01-13-2022 End: 72-46-4652Gmzkrki dehydrogenase ldhChristopher De La Vega DO Work Phone: [phone]: 41-88-9262Duitioe blood reagent Alyosn Santana MD Work Phone: Start: 20-24-0573Rmhgv count smear mcrscp w/mnl difrntl wbc countSmariama Chua MD Work Phone: [phone]: 17-66-5016Hmmxviv function panelSmariama Chua MD Work Phone: [phone]: 01-12-2022 End: 97-12-5179Rqpytip dehydrogenase ldhChristopher De La Vega DO Work Phone: [phone]: 62-20-3706Yqcjsoo blood reagent Alyson Santana MD Work Phone: [phone]: 73-97-0814Qkqwx typing serologic aboChristopher De La Vega DO Work Phone: [phone]: 72-80-0072Ulhee count smear mcrscp w/mnl difrntl wbc countSmariama Chua MD Work Phone: [phone]: 80-76-6719Ktebt typing, ABO, Rho(D) and RBC antibody screeningChristopher De La Vega DO Work Phone: [phone]: 72-24-1451Mhmahjm function panelSmariama Chua MD Work Phone: Start: 25-61-8794Nwwkcpm dehydrogenase ldhChristopher De La Vega DO Work Phone: [phone]: 01-10-2022 End: 37-66-4455Ikvuy of magnesiumChristopher De La Vega DO Work Phone: [phone]: 04-49-4731Fyl routine ecg w/least 12 lds trcg only w/o i&rTo Be AssignedStart: 28-53-4236Mqn-scan artl virgilio abdl/pel/scrot&/rpr orgn comChristopher De La Vega DO Work Phone: [phone]: 92-93-3388Nxwvvvke factor viii ahg 1 stage Abhinav De La Vega DO Work Phone: [phone]: 73-33-1727Yw abdominal real time w/image limitedSalina Franks MD Work Phone: [phone]: 72-75-8025Kesayaqu kinase totalFadi Bety MULTANI Work Phone: [phone]: 99-52-4635Thuvpey function panelSmariama Chua MD Work Phone: [phone]: 99-73-4394Bkfjj nos amplified probe tq each organismDarion Blanchard DO Work Phone: [phone]: 44-62-4297WVG BLOOD CELL COMPONENTSalina Franks MD Work Phone: [phone]: 01-09-2022 End: 17-68-6913Cnsog of copperIvy Chua MD Work Phone: [phone]: 09-14-8926Xvbdl of Sherin Marino MD Work Phone: [phone]: 26-80-0206Fpuvrfg bacterial blood aerobic w/id isolatesSmariama Chua MD Work Phone: [phone]: 37-48-1023Smcbntrxfa exam abdomen 1 viewSmariama Chua MD Work Phone: [phone]: 17-31-1779JQQ BLOOD CELL COMPONENTAshrieileen Winston MD Work Phone: [phone]: 41-03-3311Uhlptwbi kinase totalSmariama Chua MD Work Phone: [phone]: 21-43-2466Mqfrwtg function panelSmariama Chua MD Work Phone: [phone]: 79-71-2078Ohwzj count smear mcrscp w/mnl difrntl wbc countSmariama Chua MD Work Phone: [phone]: 17-98-3272Coyjk orbits complete minimum 4 views Ivy Chua MD Work Phone: [phone]: 01-08-2022 End: 58-32-3943Ei abdominal real time w/image limitedSmariama Chua MD Work Phone: Start: 36-02-6246Pxtl screen analgesics non-opioid 1 or 2Ckristi Marino MD Work Phone: Start: 52-10-0771Slepe hepatitis c quant & reverse transcriptionSmariama Chua MD Work Phone: Start: 09-04-0738Gehxggkzwrf dir noelle high density cholesterolSalina Franks MD Work Phone: start: 60-24-3474HA BODY IMAGE IMPORT(CHRISTIANO)Ivy Chua MD Work Phone: Start: 82-44-0861TWOL CHEST IMAGE IMPORT(CHRISTIANO)Ivy Chua MD Work Phone: Start: 01-08-2022 End: 40-83-6309Hewyn humerus minimum 2 viewsCollin Allen MDStart: 01-08-2022 End: 53-33-2796Aatzhyay kinase totalSmariama Chua MD Work Phone: Start: 65-82-5133Dqetqrb function panelSmariama Chua MD Work Phone: Start: 99-94-1530Bef routine ecg w/least 12 lds trcg only w/o i&rBryan Margaria DO Work Phone: Start: 13-75-0853Dsahe 1996 panel - Serum or Plasma Margaret Zuñiga MD Work Phone: Incision AND drainageElizabeth John Jaw region structure (body structure)Aldair Thorpe Plan of Treatment DateCare ActivityDetailAuthorStart: 85-89-3761Frqrjcyqq-zoster vaccine (product) MetroHealthStart: 48-41-8876Bkmqu panelMetroHealthStart: 95-83-3435Swrictoni vaccinationNOMS HealthcareStart: 13-82-9307Tohib BMI ScreeningAdult BMI ScreeningWilson Street Hospitalca [facility] SystemStart: 85-28-8547Dwletgf ScreeningTobacco ScreeningWilson Street Hospitalca [facility] SystemStart: 15-11-7235Syydvmn ScreeningTobacco ScreeningWilson Street Hospitalca [facility] SystemStart: 89-31-9121Pwzzx BMI ScreeningAdult BMI ScreeningKettering Health [facility] SystemStart: 17-54-8454Rpmstnt ScreeningTobacco ScreeningWilson Street Hospitalca [facility] SystemStart: 01-24-2025 End: 33-69-5504Ontzhcy encounter aozouffah98/20/2025 9:00 AM EDT Office Visit GEOVANNA CANALES [address] [facility] [address] [place] [phone] Kenn Hickey, PhD [address] [place] [address] ArrivedGEOVANNA CABRERAYComment on above:ArrivedStart: 05-12-2024 End: 45-17-3193Pzgzmvr encounter dcnafxcms96/05/2024 9:30 AM EDT Office Visit [facility] [address] [place] [id number] Radha Bertrand MD [address], [facility] [address] [place] [address] [facility] Vascular SurgeryStart: 54-11-4553RYTMS-19 Vaccine ( season)COVID-19 Vaccine ( season)[facility] SystemStart: 91-47-5425Bzdnlxjbx vaccinationBarnesville Hospitaltart: 04-26-2024 End: 42-60-8030Lohkyjqyr to same day surgery ufrvge2604/26/2024 10:45 AM EDT - 04/26/2024 1:00 PM EDT Surgery [facility] - Special Procedures [address] [place] [id number] Radha Bertrand MD [address], [address] [place] [address] ANGIOGRAM EXTREMITY LOWER WITH INTERVENTIONProMedica [facility] Special ProceduresComment on above:ANGIOGRAM EXTREMITY LOWER WITH INTERVENTIONStart: 04-26-2024 End: 11-41-2611CJCTUKDWR EXTREMITY LOWERANGIOGRAM EXTREMITY LOWER ARTERIOVENOUS MALFORMATION LEG RIGHT 04/26/2024 10:45 AM [facility]TPNew[facility] SystemStart: 62-84-6156Ofcyeshcsq hospital visit by kipcrszcv00/20/2024 10:45 AM EDT Hospital Encounter [facility] Special Procedures [address] [place] [address] Radha Bertrand MD [address], [address] [address] [facility] Special ProceduresStart: 01-22-2024 End: 65-63-6159Ecofgfm encounter jwgxktucz53/17/2024 9:30 AM EDT Office Visit General Surgery [address] [address] Bang Fuentes MD [address] [place] [address] GALLSTONESGeneral SurgeryComment on above:GALLSTONESStart: 10-01-2023 End: 65-41-3080Jyerjvg encounter rzzlhgtuc91/25/2024 8:30 AM EST Appointment [facility] Oncology Medical [address] [place] [address] Tanvir Black MD [address] [facility] [place] [address] [facility] Oncology MedicalStart: 86-30-6155Gssoprjwbh Health ScreeningBehavioral Health ScreeningTrihealth [facility] Start: 07-27-2023 End: 10-98-6449Rvpztfz encounter dummqrtkc78/20/2023 10:00 AM EST Office Visit [facility] Liver [address] [place] [address] Marcello Ibanez MD [address] [place] [address] [facility] LiverStart: 07-20-2023 End: 46-66-8551Xlufybo encounter procedureMetHocking Valley Community Hospital Oncology MedicalStart: 63-46-8033Etdrvelky vaccinationInfluenza Vaccine (#1)[facility] CenterHealthStart: 71-29-1156Dbjow sample AFP levelMetroHealthStart: 46-03-1098HFXVN-19 Vaccine ( season)COVID-19 Vaccine ( season)[facility] System Start: 65-28-2918Qxbobkube vaccinationInfluenza Vaccine (#1)[facility] CenterHealthStart: 04-21-2023 End: 34-08-1988Qgngjst encounter procedureMetHocking Valley Community Hospital Oncology MedicalStart: 03-20-2023 End: 52-33-1550Ggrbszp encounter procedureMetroHealth [facility] Start: 03-03-2023 End: 23-65-0524Cekulfpkjztj consultation with mgltrao3603/03/2023 11:20 AM EDT Telemedicine [place] [id number] [place] [id number] Nighat Mahmood, LIBAN-[facility] [address] [place] [address] [facility] Family MedicineStart: 01-20-2023 End: 95-56-3037Rwbxwkn encounter dofvhpxmt61/16/2023 Appointment Radiology [facility] RadiologyStart: 01-12-2023 End: 45-18-2786Oplxvom encounter procedureMetHocking Valley Community Hospital LiverStart: 12-16-2022 End: 58-14-7639Brbjqvy encounter bxldkzsco82/11/2023 Office Visit Family Practice Dejuan Lechuga MD [address] [place] [address] [facility] Family Medicine Start: 12-15-2022 End: 93-31-0632Lqojlupcjpvz consultation with ioqmqwu0512/15/2022 Telemedicine Family Practice Theo Burks MD [address] [facility] [place] [address] ArrivedTwin City HospitalComment on above:ArrivedStart: 12-15-2022 End: 38-50-3046MX Ribs - left Views and Chest PAXR RIBS LT UNILAT W/PA CHEST Imaging Routine Rib pain Expected: 12/15/2022, Expires: 12/16/2023[facility] CENTERUlthe[facility] SYSTEM Work Phone: Comment on above:Expected: 12/15/2022, Expires: 12/16/2023Start: 11-13-2022 End: 70-83-7069Hwamaql encounter procedureAshtabula [facility] Oncology MedicalStart: 10-27-2022 End: 16-00-8344OQ Guidance for transjugular biopsy of Liver-- W contrast IV [facility] CenterComment on above:Expected: 10/27/2022, Expires: 10/27/2023Start: 10-27-2022 End: 45-19-6592Nlwafoc encounter qexhbdtiu55/20/2023 Office Visit Gastroenterology Abbey Alvarez MD [address] [facility] [place] [address] [facility] LiverStart: 09-22-2022 End: 44-74-2040Ojmwgtxeg to same day surgery centerWar Memorial Hospital Multispecialty Endoscopy SuiteComment on above:ESOPHAGOGASTRODUODENOSCOPY ESOPHAGOGASTRODUODENOSCOPY, GENERAL ANESTHESIAStart: 09-22-2022 End: 94-70-4079OpgxaqvrtuugviewoskmdwashpHCNYKJEXSZFRDYOUUAOBDEUJCQ Iron deficiency anemia, unspecified iron deficiency anemia type Alcoholic cirrhosis, unspecified whether ascites present (HCC) 09/22/2022 8:00 AM ESTMulti Specialty EndoscopyStart: 09-22-2022 End: 83-60-8106IVKYOHIRTXVBJCBQQZNKPWCGAS, GENERAL ANESTHESIA ESOPHAGOGASTRODUODENOSCOPY, GENERAL ANESTHESIA Iron deficiency anemia, unspecified iron deficiency anemia type Alcoholic cirrhosis, unspecified whether ascites present (HCC) 09/22/2022 8:00 AM ESTMulti Specialty EndoscopyStart: 93-47-4691Gfrxirmgkm hospital visit by koklfkhha64/16/2023 Hospital Encounter Gastroenterology Claire Avila MD [address] [facility] [place] [address] [facility] Multispecialty Endoscopy SuiteStart: 09-19-2022 End: 61-18-4674Jxdbddj encounter frgdmivzb67/13/2023 Office Visit Gastroenterology Saskia Madison, TUMBLING MACHINE OPERATOR-GRINDER MILL OPERATOR [address] [place] [address] [facility] [place] LiverStart: 09-16-2022 End: 05-59-3941RMLT-CoV-2 (COVID-19) RNA [Presence] in Unspecified specimen by ANGIE with probe detectionNOVEL CORONAVIRUS (COVID-19) Lab Routine Encounter for laboratory testing for severe acute respiratory syndrome coronavirus 2 (SARS-CoV-2) Expected: 09/16/2022, Expires: 10/17/2022THE [employer] Work Phone: Comment on above:Expected: 09/16/2022, Expires: 10/17/2022Start: 09-15-2022 End: 68-51-2652OOZE-CoV-2 (COVID-19) RNA [Presence] in Unspecified specimen by ANGIE with probe detectionNOVEL CORONAVIRUS (COVID-19) Lab Routine Encounter for laboratory testing for severe acute respiratory syndrome coronavirus 2 (SARS-CoV-2) Expected: 09/15/2022, Expires: 10/16/2022[facility] [employer] Work Phone: Comment on above:Expected: 09/15/2022, Expires: 10/16/2022Start: 62-89-4259Avbymthqj B vaccinationHepatitis B (HBV) Vaccine (2 of 3 - 19+ 3-dose series)[facility] CenterStart: 36-97-0270Ecwumbejf B Vaccine (2 of 3 - 19+ 3-dose series)Hepatitis B Vaccine (2 of 3 - 19+ 3-dose series)[facility] Hospitaltart: 09-08-2022 End: 27-23-5218[facility]a metabolic 2000 panel - Serum or PlasmaBASIC METABOLIC PANEL Lab Routine Alcoholic hepatitis without ascites Alcoholic cirrhosis of liver w ithout ascites (HCC) 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) Expected: 09/08/2022, Expires: 10/26/2022MetroHealthComment on above:Expected: 09/08/2022, Expires: 10/26/2022Start: 08-29-2022 End: 57-23-0190Vodlmwz encounter ljlqwqrfa85/23/2022 Office Visit Family Practice Theo Burks MD [address] [facility] [place] [address] [facility] Medicine Start: 08-28-2022 End: 59-88-4398Cujxajtwolxc consultation with mguhoqc7108/28/2022 Telemedicine Gastroenterology Saskia Madison, LIBAN-GRINDER MILL OPERATOR [address] [facility] [place] [address] [facility] [place] LiverStart: 08-27-2022 End: 99-12-1234Qqcbh of ferritinFERRITIN Lab Routine Alcoholic hepatitis without ascites Alcoholic cirrhosis of liver without ascites (HCC) 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) Expected: 08/27/2022, Expires: 09/12/2022MetHocking Valley Community Hospital Comment on above:Expected: 08/27/2022, Expires: 09/12/2022Start: 08-27-2022 End: 02-49-0804Bgwez of gammaglobulin iga igd igg igm eachIMMUNOGLOBULIN G Lab Routine Alcoholic hepatitis without ascites Alcoholic cirrhosis of liver without ascites (HCC) 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) Expected: 08/27/2022, Expires: 09/12/2022MetroHealthComment on above:Expected: 08/27/2022, Expires: 09/12/2022Start: 08-27-2022 End: 27-45-7257Vhfzb of ironIRON AND TIBC Lab Routine Alcoholic hepatitis without ascites Alcoholic cirrhosis of liver without ascites (HCC) 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) Expected: 08/27/2022, Expires: 09/12/2022 MetroHealthComment on above:Expected: 08/27/2022, Expires: 09/12/2022Start: 08-27-2022 End: 15-25-3897Baf hemochromatosis gene anal common variantsHEMOCHROMATOSIS DNA TEST Lab Routine Alcoholic hepatitis without ascites Alcoholic cirrhosis of live r without ascites (HCC) 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) Expected: 08/27/2022, Expires: 09/12/2022MetroHealthComment on above:Expected: 08/27/2022, Expires: 09/12/2022Start: 08-27-2022 End: 59-05-8087Ctgfpf muscle antibody measurementSMOOTH [facility] AT[facility] SCRN & TITR Lab Routine Alcoholic hepatitis without ascites Alcoholic cirrhosisof liver without ascites (HCC) 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) Expected: 08/27/2022, Expires: 09/12/2022MetroHealthComment on above:Expected: 08/27/2022, Expires: 09/12/2022Start: 08-27-2022 End: 74-72-5705Tdtmhlpt chemistry procedureMISCELLANEOUS SEND OUT TEST Lab Routine Alcoholic hepatitis without ascites Alcoholic cirrhosis of liver without ascites (HCC) 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) Expected: 08/27/2022, Expires: 09/12/2022THE [employer] Work Phone: Comment on above:Expected: 08/27/2022, Expires: 09/12/2022Start: 08-25-2022 End: 12-61-4244Eafynuuxgjq timePROTHROMBIN TIME AND INR Lab Lab Add-On Alcoholic cirrhosis of liver without ascites (HCC) Expected: 08/25/2022, Expires: 09/12/2022[facility] [employer] Work Phone: Comment on above:Expected: 08/25/2022, Expires: 09/12/2022Start: 08-25-2022 End: 92-36-1310Yzgaogv encounter procedureMetroHealth LiverComment on above: ArrivedStart: 08-19-2022 End: 86-61-4612Sxkynuqfnnop / ancillary services fhhyfwybxo77/13/2022 Ancillary Procedure RadiologyMetroUniversity Hospitals [facility] [place] UltrasoundStart: 08-19-2022 End: 45-68-9721Monkrdqfvkjp / ancillary services sniuotjphf91/13/2022 Ancillary Procedure RadiologyMetroUniversity Hospitals [facility] [place] UltrasoundStart: 08-14-2022 End: 18-60-4956NI Abdomen RUQUS LIVER/GALL BLADDER/PANCREAS Imaging Routine Iron deficiency anemia, unspecified iron deficiency anemia type Alcoholic cirrhosis, unspecified whether ascites present (HCC) Expected: 08/14/2022, Expires: 08/14/2023[facility] Work Phone: Comment on above:Expected: 08/14/2022, Expires: 08/14/2023Start: 08-14-2022 End: 67-47-4420VM.doppler Portal vein and Hepatic veinUS HEP PORT SPLEN VEIN + DOPPLER Imaging Routine Iron deficiency anemia, unspecified iron deficiency anemia type Alcoholic cirrhosis, unspecified whether ascites present (HCC) Expected: 08/14/2022, Expires: 08/14/2023MetroHealthComment on above:Expected: 08/14/2022, Expires: 08/14/2023Start: 08-14-2022 End: 20-76-8162Izxfpyi encounter procedureMetroUniversity Hospitals [facility] Oncology MedicalStart: 62-72-6407Rmqjgpzyfdoedo Carcinoma ScreeningHepatocellular Carcinoma Screening MetroHealthStart: 30-66-1695Amcfy Imaging (Hepatocellular Carcinoma Screening) Liver Imaging (Hepatocellular Carcinoma Screening)MetroHealthStart: 07-11-2022 MetroHealthStart: 85-64-9899Xwzdlziqz vaccinationInfluenza Vaccine (#1) MetroHealthStart: 21-64-6987Gtwleavfzk hospital visit by qgsrazyhy76/30/2022 Hospital Encounter Oncology Medical Black, MD Tanvir [address] [facility] [place] [address] Subj: Appointment ReminderMetroHealth Oncology MedicalComment on above:Subj: Appointment Reminder Start: 05-06-2022 End: 55-35-1057Ljmzagt encounter procedureMetHocking Valley [facility] Hospital Non Invasive Cardiology Start: 90-72-6010Ygzdjumur vaccinationInfluenza Vaccine (#1)MetroHealthStart: 03-13-2022 End: 97-91-2802Qucirdj encounter uzlwgjavx56/07/2022 Appointment [facility]As[facility] Oncology MedicalStart: 03-13-2022 End: 79-57-6263Qxgnegq encounter pcdenrfkz63/07/2022 Appointment Oncology Medical Tanvir Black MD [address] [facility] [place] [address] [facility] Oncology MedicalStart: 02-11-2022 End: 70-03-3072etfwvbmbzdHlysnTneixg Oncology MedicalStart: 02-11-2022 End: 01-20-5520Mfrkmlz encounter gglltytco68/07/2022 Appointment Oncology Medical Tanvir Black MD [address] [facility] [place] [address] [facility] Oncology MedicalStart: 01-23-2022 End: 38-35-2216xjxqjtlenuVvligOadvap [place] OrthopedicsStart: 01-23-2022 End: 19-19-8173Ypkswpd encounter soqjfmwhf00/19/2022 Office Visit Orthopedics Ronen Welch MD [address] [facility] [address] [facility] OrthopedicsStart: 01-20-2022 End: 97-16-9444bcsdinhwpjLnrtoYoifzy LiverStart: 26-14-3903ONENM-19 Vaccine (2 - Moderna risk series)COVID-19 Vaccine (2 - Moderna risk series)MetroHealthStart: 18-43-6773XFXLK-19 Vaccine (3 - Moderna risk series)COVID-19 Vaccine (3 - Moderna risk series)MetroHealthStart: 55-41-5500UWX Vaccine (optional start 27- 45 years)HPV Vaccine (optional start 27-45 years)MetroHealthStart: 2003 DTaP,Tdap and Td Vaccines (1 - Tdap)DTaP,Tdap and Td Vaccines (1 - Tdap) [facility]: 03-14-9602Gbdmrbpimwcf vaccinationPneumococcal Vaccine (1 of 2 - PCV)[facility]: 59-46-9279Gkvayohd (RZV) Vaccine (1 of 2)Shingles (RZV) Vaccine (1 of 2)MetroHealthStart: 19-15-6878Pqucirib Vaccine (1 of 2)Shingrix Vaccine (1 of 2)[facility]: 30-13-9224Balav microalbumin profileDTaP,Tdap,Td Vaccine (1 - Tdap)[facility]: 05-38-9531Jeovb BMI ScreeningAdult BMI ScreeningProProMedica Flower Hospitaltart: 24-99-6985Ibjfjyi ScreeningAnxiety ScreeningBarnesville Hospitaltart: 2002 Depression ScreeningDepression ScreeningBarnesville Hospitaltart: 69-53-2640FRZ screeningHIV ScreeningCleMetroHealth Main Campus Medical Centertart: 69-72-8520Aujrhdo + diphtheria + acellular pertussis vaccine (product)MetroHealthStart: 76-04-2688Jwynkjvacg ScreeningDepression ScreeningFormerly [facility], [facility]: 69-36-3498Thzixov ScreeningTobacco ScreeningFormerly [facility], [facility]: 51-23-7721Frybjzrgudoy vaccinationMetroHealthStart: 52-09-1628EcfkiKsqejvFgjok: 85-63-8175BJSAE-19 Vaccine (#1)COVID-19 Vaccine (#1)MetroHealthStart: 55-56-4630UQLXW-19 Vaccine (1)COVID-19 Vaccine (1)MetroHealthStart: 02-27-9944ErjtmUxeksbAhizv: [birth year]18-1985 COVID-19 Vaccine (#1)COVID-19 Vaccine (#1)MetroHealthStart: 84-09-0773Wulmvxw CounselingTobacco CounselingCleveland Clinic [facility]view [facility] End: 06-59-0295Bedsj-fetoprotein serumALPHA FETOPROTEIN TUMOR MARKER Lab Routine Iron deficiency anemia, unspecified iron deficiency anemia type Alcoholic cirrhosis, unspecified whether ascites present (HCC) 1 Occurrences starting 08/14/2022 until 08/14/2023MetroHealthComment on above:1 Occurrences starting 08/14/2022 until 08/14/2023 End: 58-86-4486Kmutv of blood/uric acidURIC ACID Lab STAT 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 for 12 Occurrences starting 03/13/2022 until 03/13/2023, 1 completedMetroHealthComment on above:monthly for 12 Occurrences starting 03/13/2022 until 03/13/2023, 1 completedAssay of gammaglobulin iga igd igg igm eachIMMUNOGLOBULIN G Lab Routine Alcoholic hepatitis without ascites Alcoholic cirrhosis of liver without ascites (HCC) 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) 08/25/2022 12:41 PM ESTMetroHealthAssay of haptoglobin quantitativeTHE [employer] SYSTEM Work Phone: End: 87-52-2665Ipsif of haptoglobin quantitativeHAPTOGLOBIN Lab STAT 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) every month for 12 Occurrences starting 03/13/2022 until 03/13/2023, 1 completedMetroHealthComment on above:every month for 12 Occurrences starting 03/13/2022 until 03/13/2023, 1 completed End: 29-08-4112Qcidu of haptoglobin quantitativeHAPTOGLOBIN Lab STAT 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) 6 Occurrences starting 11/12/2022 until 11/13/2023, 1 completedMetroHealthComment on above:6 Occurrences starting 11/12/2022 until 11/13/2023, 1 completedBacteria identified in Urine by Culture URINE CULTURE Microbiology Routine Dysuria 08/14/2022 12:17 PM [employer] Work Phone: [facility] metabolic 1999 panel - Serum or Plasma [facility] End: 76-50-9574Ffreg metabolic 1999 panel - Serum or PlasmaBASIC METABOLIC PANEL Lab STAT 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 for 12 Occurrences starting 03/13/2022 until 03/13/2023, 1 completedMetroHealthComment on above: monthly for 12 Occurrences starting 03/13/2022 until 03/13/2023, 1 completed End: 84-61-7069Qdssv metabolic 1999 panel - Serum or PlasmaBASIC METABOLIC PANEL Lab Routine Iron deficiency anemia, unspecified iron deficiency anemia type Al coholic cirrhosis, unspecified whether ascites present (HCC) 1 Occurrences starting 08/14/2022 until 08/14/2023MetroHealthComment on above:1 Occurrences starting 08/14/2022 until 3Basic metabolic 2000 panel - Serum or Plasma BASIC METABOLIC PANEL Lab Routine Nausea Ordered: 10/27/2022MetroHealthComment on above:Ordered: 10/27/2022 End: 12-96-1542Hayvb metabolic 2000 panel - Serum or PlasmaBASIC METABOLIC PANEL Lab STAT 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) 6 Occurrences starting until 11/13/2023, 1 completedMetroHealthComment on above:6 Occurrences starting 11/12/2022 until 11/13/2023, 1 completed End: 91-67-8484Nuuhd count reticulocyte automatedRETICULOCYTE COUNT Lab STAT 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) 6 Occurrences starting 11/12/2022 until 11/13/2023, 1 completedMetroHealthComment on above:6 Occurrences starting 11/12/2022 until 11/13/2023, 1 completedCBC panel - Blood by Automated count [facility] End: 54-79-1311DJI panel - Blood by Automated countCOMPLETE BLOOD COUNT Lab Routine Iron deficiency anemia, unspecified iron deficiency anemia type Alc oholic cirrhosis, unspecified whether ascites present (HCC) 1 Occurrences starting 08/14/2022 until08/14/2023MetroHealthComment on above:1 Occurrences starting 08/14/2022 until 08/14/2023BC panel - Blood by Automated countCOMPLETE BLOOD COUNT Lab Routine Nausea Ordered: 10/27/2022MetroHealthComment on above: Ordered: 10/27/2022 End: 28-52-6357ISZ W Auto Differential panel - BloodCOMPLETE BLOOD COUNT W/DIFF Lab STAT 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 for 12 Occurrences starting 03/13/2022 until 03/13/2023, 1 completedTHE [employer] Work Phone: Comment on above:monthly for 12 Occurrences starting 03/13/2022 until 03/13/2023, 1 completed End: 37-64-4438DRG W Auto Differential panel - BloodCOMPLETE BLOOD COUNT W/DIFF Lab STAT 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) 6 Occurrences starting 11/12/2022 until 11/13/2023, 1 completedTHE [employer] Work Phone: Comment on above:6 Occurrences starting 11/12/2022 until 11/13/2023, 1 completedCreatine kinase totalCREATINE KINASE Lab Routine Muscle soreness Ordered: 08/29/2022THE [employer] Work Phone: Comment on above:Ordered: 08/29/2022 ESOPHAGOGASTRODUODENOSCOPY, GENERAL ANESTHESIAMulti Specialty EndoscopyHepatic function panelTHE [employer] SYSTEM Work Phone: End: 12-92-0545Jmouuha function panelHEPATIC FUNCTION PANEL Lab STAT 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 for 12 Occurrences starting 03/13/2022 until 03/13/2023, 1 completedMetroHealthComment on above:monthly for 12 Occurrences starting 03/13/2022 until 03/13/2023, 1 completed End: 83-77-2496Qfwoxsy function panelHEPATIC FUNCTION PANEL Lab Routine Iron deficiency anemia, unspecified iron deficiency anemia type Alcoholic cirrhosis, unspecified whether ascites present (HCC) 1 Occurrences starting 08/14/2022 unti l 08/14/2023MetroHealthComment on above:1 Occurrences starting 08/14/2022 until 08/14/2023Hepatic function panelHEPATIC FUNCTION PANEL Lab Routine Nausea Ordered: 10/27/2022MetroHealthComment on above:Ordered: 10/27/2022 End: 72-47-3790Fnsugen function panelHEPATIC FUNCTION PANEL Lab STAT 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) 6 Occurrences starting 11/12/2022 until 11/13/2023, 1 completedMetroHealthComment on above:6 Occurrences starting 11/12/2022 until 11/13/2023, 1 completedHfe hemochromatosis gene anal common variantsHEMOCHROMATOSIS DNA TEST Lab Routine Alcoholic hepatitis without ascites Alcoholic cirrhosis of liver without ascites (HCC) 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) 08/25/2022 12:41 PM ESTMetroHealthHfe hemochromatosis gene anal common variantsHEMOCHROMATOSIS DNA TEST Lab Routine Increased storage iron 11/13/2022 11:58 AM ESTMetroHealthLactate dehydrogenase ldhMetroHealth End: 72-81-6535Qidbyip dehydrogenase ldhLDH Lab STAT 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 for 12 Occurrences starting 03/13/2022 until 03/13/2023, 1 completedMetroHealthComment on above:monthly for 12 Occurrences starting 03/13/2022 until 03/13/2023, 1 completed End: 91-03-5631Oohwssq dehydrogenase ldhLDH Lab STAT 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) 6 Occurrences starting 11/12/2022 until 11/13/2023, 1 completedMetroHealthComment on above:6 Occurrences starting 11/12/2022 until 11/13/2023, 1 completedProthrombin timeMetroHealth End: 44-09-0568Gtykctcsmtg timePROTHROMBIN TIME AND INR Lab Routine Iron deficiency anemia, unspecified iron deficiency anemia type Alcoholic cirrhosis, unspecified whether ascites present (HCC) 1 Occurrences starting 08/14/2022 un til 08/14/2023MetroHealthComment on above:1 Occurrences starting 08/14/2022 until 3Prothrombin timePROTHROMBIN TIME AND INR Lab Routine Nausea Ordered: 10/27/2022[employer] Work Phone: Comment on above:Ordered: 10/27/2022Smooth muscle antibody measurementSMOOTH MUSC ATB SCRN & TITR Lab Routine Alcoholic hepatitis without ascites Alcoholic cirrhosisof liver without ascites (HCC) 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) 08/25/2022 12:41 PM ESTMetroHealthUnlisted chemistry procedureMISCELLANEOUS SEND OUT TEST Lab Routine Alcoholic hepatitis without ascites Alcoholic cirrhosis of liver without ascites (HCC) 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) 08/25/2022 12:41 PM [facility]MetroUniversity [facility] Immunizations Immunization DateImmunizationNotesCare AieblifoShhmfppt93-05-9729yjiatvlvg B vaccine, unspecified formulationMarcello Ibanez MD Work Phone: [phone]lnsmyi B vaccine, adult dosage Saskia SILVESTRE Work Phone: [phone]ckkl Monovalent (12+ yrs) COVID-19 vaccine, mRNA, spike protein, LNP, PF, 100 mcg/0.5 mL (GRS=237)Marcello Ibanez MD Work Phone: [phone]xKrrtrz32-44-6501Xnfojow Monovalent (12+ yrs) COVID-19 vaccine, mRNA, spike protein, LNP, PF, 100 mcg/0.5 mL (SGH=864)Marcello Ibanez MD Work Phone: MetroHealthNEGATED: Highlighted row has not occurred! 21-93-5544nhzkauosn virus vaccine, unspecified formulationMuhamnickd Elidai [phone]-TqwhbGalion Community Hospital Digestive HealthNEGATED: Highlighted row has not occurred!82-52-7856jeeoukojd virus vaccine, unspecified formulationLoreta Cummings [phone]-XpltqGalion Community Hospital Digest[facility] Health Payers DatePayer CategoryPayerPolicy [id number] Health [id number] 1.2.840.207969.1.13.56.2.7.3.024[id number] 2.16.840.0.38569[id number] 2.16.840.1.104845.3.579.2.727 [id number] 2.16.840.1.717657.3.57[id number] 2.16.840.1.266171.3.57[id number] 2.16.840.1.488431.3.57[id number] 2.16840.1.429102.3.57[id number] 2.16840.1.896083.3.579.2.0[id number] 2.16840.1.834694.3.579.2.6[id number] 2.16840.1.735943.3.579.[id number] 2.84.1.301620.3.57[id number] 2.0.1.530122.3.579.2.[id number] 2.840.1.347217.3.579.2.80288-47-1718Wtetkkj00024346 2.840.1.704939.3.579.2.82600-63-7928Gwwojai09782657 2.84.1.677383.3.579.2.7[id number] 2..1.360743.3.579.2.81679-22-9188Eftxnzc59581271 2.840.1.128150.3.579.2.18592-46-8010Butujym62237565 2.840.1.334836.3.579.2.28964-64-6516Hirdogl60308190 2.840.1.157574.3.579.2.69246-83-0652Iyzfvcv40946650 2.840.1.599332.3.57[id number] 2.16.840.1.996907.3.579.2.61586-41-0903Dvxzgtg27010037 2.16.840.1.173956.3.579.2.44096-62-8487Yzaxewt68515319 2.16.840.1.075740.3.579.2.97403-67-5177Cqqteyy08604944 2.16.840.1.623510.3.579.2.99[id number] 2.840.1.232515.3.579.2.36831-58-1324Geggpkh66343567 2.16840.1.508428.3.579.2.47257-11-9224Ubujcbm62454945 2.840.1.001969.3.579.2.34805-21-5855Hhlpdln80406590 2.16840.1.353991.3.579.2.63946-35-1815Epjhqux60563646 2.840.1.029506.3.579.2.19022-67-6612Inlfwcj20501868 2.16840.1.747094.3.579.2.22085-70-6421Xhqyoko79367253 2.840.1.800712.3.579.2.13305-42-5323Vomcgtr1208920 2.16840.1.156994.3.579.2.854508-23-1603Pnvcbyz79963718 2.16840.1.793753.3.579.[id number] 2.16840.1.080687.3.579.2.74954-45-3096Shabodq42272902 2.16840.1.341610.3.579.2.41548-69-3841Wnnbggx47668810 2.16840.1.852750.3.579.2.01184-50-3614Vviaytb29159467 2.16840.1.672899.3.579.2.18964-66-5368Htwnuue81068650 2.16840.1.723645.3.579.2.03894-32-5713Hnjfchl42104286 2.16840.1.701917.3.579.2.21732-60-6450Flgepyr16988200 2.840.1.912668.3.579.2.86912-36-0157Upiietv16950354 2..1.226132.3.579.2.80044-98-9334Aeogksa68138877 2.840.1.559454.3.579.2.91521-98-2200Rcvszus56348164 2.840.1.031872.3.579.2.92179-93-9318Ypipyym15138642 2.840.1.301773.3.579.2.70029-97-7350Agvaojg63683536 2..1.426760.3.579.2.54154-87-3753Lbirrmj76934207 2.840.1.018837.3.579.2.03982-39-7674Yvyrdgc50847573 2.16840.1.976202.3.579.2.65446-75-1731Uxmhgmw30828141 2.16840.1.497815.3.579.2.27279-95-9052Kgwklvb87176800 2.840.1.995078.3.579.2.60601-54-6332Pvgxmcy96681105 2.160.1.646000.3.579.2.727 Social History DateTypeDetailFacilityTobaccoTobacco smoking consumption unknownOhio State Harding HospitalComment on above:daily chewpt deniesStart: 12-30-2023 End: 75-79-8286Zba Assigned At BirthBluffton Hospitaltart: 28-13-9649Sty Assigned At BirthMetHocking Valley Community HospitalTobacco smoking status NHISTobacco smoking consumption unknownMetroHealthStart: 08-14-2022 End: 95-76-5102Jcyhfsk smoking status NHISEx-smokerMetroHealthComment on above: quit cigarettes 9 yearsagodenies, quit 9 years agoStart: 09-07-2002 End: 59-32-6014Qfauhev of tobacco useCurrent smokerMetroHealthStart: 09-07-2002 End: 54-84-0545Kciehvs of tobacco useCigarette SmokerMetroHealthStart: 08-14-2022 End: 15-86-8819Nwarojl use and exposureUser of smokeless tobaccoMetroHealth History of tobacco useChews TobaccoMetroHealthStart: 08-05-2022 End: 58-21-0545Jmptsfzn to SARS-CoV-2 (event)Not sureMetroHealthStart: 08-19-2022 End: 26-28-6430Ouowagqo to SARS-CoV-2 (event)Unable to assessMetroHealth Work Phone: Tobacco smoking statusOhio State Harding Hospital Tobacco smoking statusSmokeless tobacco user within last 30 daysGalion Community Hospital Primary CareComment on above:quit cigarettes 9 yearsagodenies, quit 9 years agoStart: 24-29-4781Rvyqywa intakeCurrent drinker of alcohol (finding)[facility]tart: 12-30-2023 End: 99-30-3696Ygelilx intakeMetroHealthStart: 82-18-6142Hgdccqt CommentOnce every couple of weeksTrihealth Bethesda Butler HospitalWithin the last year, have you been afraid of your partner or ex-partner?NoMetroHealthAre you now , , , , never or living with a partner?Never MetroHealthHow hard is it for you to pay for the very basics like food, housing, medical care, and heatingVery hardMetroHealthDo you feel stress - tense, restless, nervous, or anxious, or unable to sleep at night because yourmind is troubled all the time - these days [OSQ]Very muchMetroHealthThe food that (I/we) bought just didn't last, and (I/we) didn't have money to get more.Sometimes trueMetroHealthIn the past 12 months, was there a time when you were not able to pay the mortgage or rent on time?YesMetroHealthStart: 41-66-1209Aygscdoow75 MetroHealthStart: 86-39-4939Cvmzpqs smoking status NHISNever smoked tobacco [facility] SystemStart: 11-43-4408Mlnmaoj use and exposureFormer smokeless tobacco userKettering Health Miamisburg SystemStart: 09-46-9391Wpgeozedd beverage intake DeferKettering Health Miamis[facility] SystemHistory of tobacco useSnuff UserKettering Health Miamisburg SystemStart: 04-21-2024 End: 24-51-7343Uroigtkwj beverage intakeEx-drinker (finding)[facility] SystemStart: 95-73-6075Rtsslur Comment2 tins per weekKettering Health Miamis[facility] System Start: 21-87-3698Afsqisa Commentquit [facility] SystemStart: 92-66-2603YwkCtdx (finding)[facility] Medical Equipment Procedure CodeEquipment CodeEquipment Original TextEquipment IdentifierDates [Order 1 Start] Name: dextrose 10 % iv infusion Signed Summary: 125 mL, Intravenous, at 999 mL/hr, PRN, Starting on Thu01/17/22 at 0015, Until Discontinued, For blood glucose less than 70 mg/dL, withIV access and with loss of consciousness or [...] alert and able to swallow. [Order 4 End][id number]: 01-17-2022 Functional Status AannCkhozncibjWbsyrsThvtszyn19-44-8433Ebtkqvcjbm StatusN/[facility]04-29-2025Functional StatusN/[facility]04-15-2025 Functional StatusN/[facility]03-17-2025Functional StatusN/A [facility]03-14-2025Functional StatusN/[facility]02-19-2025Functional StatusN/[facility] 07-92-3411Eeursyggli StatusN/[facility] Primary Dsxt69-45-4777 Functional StatusN/[facility] Primary Rofo81-06-9135Dzobxxxuna StatusN/[facility] Digestive Anholo93-25-8816Dyzfclqrzi Status N/[facility] Bhthpw26-59-1392Flhsstlbfk StatusN/A [facility]07-11-2024Function[facility] Status[facility]05-22-2024Functional StatusN/[facility]04-17-2024Functional StatusN/[facility] Primary Dpbn81-51-4827Loazcaypjn StatusSt. Vincent Hospital04-05-2024 Functional StatusOhio [facility]ing Hospital03-06-2024Functional StatusN/A [facility]02-21-2024Functional StatusN/[facility]01-15-2024Functional StatusN/[facility]12-26-2023Functional StatusN/[facility] Bdkbbj11-02-8561Xllsvbwloi StatusN/[facility]11-17-2023Functional StatusN/[facility]10-13-2023Functional StatusN/[facility]07-16-2023 Functional StatusN/[facility]06-14-2023Functional StatusN/A [facility]06-13-2022Functional StatusN/[facility] Clinical Notes 12-07-2019 to 04-07-2025 Note Date & QexzDimwLeeuurgw00-54-3468 Hospital Discharge instructions Patient Education 04/07/2025 09:33:04 How to Use Compression Stockings How to Use Compression Stockings Compression stockings are elastic socks that help increase blood flow (circulation) to the legs, decrease swelling in the legs, and reduce the chance of developing blood clots in the lower legs. Compression stockings squeeze or apply pressure to the legs. The stockings are graduated, meaning the highest amount of pressure occurs at the toes and it decreases going toward the upper part of the leg.This helps ensure proper circulation through the veins. Compression stockings are often used by people who: Are recovering from surgery. The stockings help prevent blood clots after surgery. Have poor circulation or swelling in their legs because of a medical condition, such as chronic venous insufficiency, venous stasis, or lymphedema. Have a history of getting blood clots in their legs. Have bulging (varicose) veins. Sit or stay in bed for long periods of time (immobilization). Stand for long periods of time and experience leg pain or fatigue. Follow instructions from your health care provider about how and when to wear your compression stockings. What are the risks? Generally, compression stockings are safe to wear. However, problems may occur for some people, such as: The stockings being ineffective at increasing the circulation to the legs, decreasing swelling in the legs, or reducing the chance of developing blood clots in the lower legs. Skin complications, including breaks in the skin, open wounds, blisters, or dermatitis. How to wear compression stockings Before you put on your compression stockings: Make sure that they are the correct size and degree of compression. If you do not know your size orrequired grade of compression, ask your health care provider and follow the customer service rep's instructions that come with the stockings. Be sure they are the appropriate length for your medical needs. Compression stockings come in different lengths, including knee high, thigh high, and even up to the waist. Make sure that the stockings are clean, dry, and in good condition. Check the stockings for rips and tears. Do not put them on if they are ripped or torn. Put your stockings on first thing in the morning, before you get out of bed. Keep them on for as long as your health care provider advises. Most people are told to remove their compression stockings at the end of the day before bed. When you are wearing your stockings: Keep them as smooth as possible. Do not allow them to bunch up. It is especially important to prevent the stockings from bunching up around your toes or behind your knees. Make sure that the toe holes are underneath the toes and the heel patches are positioned at the heels. Do not roll the stockings downward and leave them rolled down. This can decrease blood flow to yourlegs. Change the stockings right away if they become wet or dirty or if they have a bad smell. If you have chronic leg wounds, make sure the wounds are properly covered or dressed before puttingon your compression stockings. When you take off your stockings, check your legs and feet for: Open sores. Red spots or other areas of discoloration. Swelling. General tips Do not stop wearing compression stockings. Talk to your health care provider if your stockings feeltoo tight. Wash your stockings often with mild detergent in cold or warm water. Also wash them whenever they get dirty or have a bad smell. Do not use bleach. Air-dry your stockings or dry them in a clothes dryer on low heat. It may be helpful to have two pairs so that you have a pair to wear while the other is being washed. Replace your stockings every 3 6 months. If skin moisturizing is part of your treatment plan, apply lotion or cream at night so that your skin will be dry when you put on the stockings in the morning. It is harder to put the stockings on when you have lotion on your legs or feet. Wear nonskid shoes or slip-resistant socks when walking while wearing compression stockings. If you have difficulty putting on or taking off the compression stockings, ask your health care provider about devices that may help make this easier. Contact a health care provider and remove your stockings if: You have a prickling or tingling feeling in your feet or legs. You have new open sores, red spots, or other skin changes on your feet or legs. You have swelling or pain that gets worse. Get help right away if: You have shortness of breath or chest pain. Your heartbeat is fast or irregular. You have new swelling, pain, or warmth in your leg. You have numbness or tingling in your lower legs that does not get better after you take the stockings off. Your toes or feet are unusually cold or turn a bluish color. You feel light-headed or dizzy. These symptoms may represent a serious problem that is an emergency. Do not wait to see if the symptoms will go away. Get medical help right away. Call your local emergency services (911 in the [place] Do not drive yourself to the hospital. Summary Compression stockings are elastic socks that are worn to treat a variety of symptoms and medical conditions such as venous insufficiency, venous stasis, or lymphedema. Compression stockings help increase blood flow (circulation) to the legs, decrease swelling in the legs, and reduce the chance of developing blood clots in the lower legs. Follow instructions from your health care provider about how and when to wear your compression stockings. Do not stop wearing your compression stockings without talking to your health care provider first. This information is not intended to replace advice given to you by your health care provider. Make sure you discuss any questions you have with your health care provider. Document Revised: 02/13/2022 Document Reviewed: 02/13/2022 [employer] Patient Education 2023 [employer] 04/07/2025 09:32:59 Cirrhosis Cirrhosis Cirrhosis is long-term (chronic) liver [...] provider before taking any new medicines, including mxbo-zkw-axcpqhe medicines such as NSAIDs. Rest as needed. [...] provider. Document Revised: 06/06/2021 Document Reviewed: 06/06/2021 [employer] Patient Education 2023 [employer]. 04/07/2025 09:32:55 Hypertension, Adult, Alsm-bd-Hhsl Hypertension, Adult Hypertension is another name for [...] more likely to develop high blood pressure: Smoking. Not getting enough exercise or physical activity. Being overweight. Having too much fat, sugar, calories, or salt (sodium) in your diet. Drinking too much alcohol. Other risk factors include: Having any of these conditions: ?Heart disease. ?Diabetes. ? High cholesterol. ?Kidney disease. ?Obstructive sleep apnea. Having a family history of high blood pressure and high cholesterol. Age. The risk increases with age. Stress. What are the signs or symptoms? High blood pressure may not cause symptoms. Very high blood pressure (hypertensive crisis) may cause: Headache. Fast or uneven heartbeats (palpitations). Shortness of breath. Nosebleed. Vomiting or feeling like you may vomit (nauseous). Changes in how you see. Very bad chest pain. Feeling dizzy. Seizures. How is this treated? This condition is treated by making healthy lifestyle changes, such as: ?Eating healthy foods. ?Exercising more. ?Drinking less alcohol. Your doctor may prescribe medicine if lifestyle changes do not help enough and if: ?Your top number is above 130. ?Your bottom number is above 80. Your personal target blood pressure may vary. Follow these instructions at home: Eating and drinking If told, follow the DASH eating plan. To follow this plan: ?Fill one half of your plate at each meal with fruits and vegetables. ?Fill one fourth of your plate at each meal with whole grains. Whole grains include whole-wheat pasta, brown rice, and whole-grain bread. ?Eat or drink low-fat dairy products, such as skim milk or low-fat yogurt. ?Fill one fourth of your plate at each meal with low-fat (lean) proteins. Low- fat proteins include fish, chicken without skin, eggs, beans, and tofu. ?Avoid fatty meat, cured and processed meat, or chicken with skin. ?Avoid pre-made or processed food. Limit the amount of salt in your diet to less than 1,500 mg each day. Do not drink alcohol if: ?Your doctor tells you not to drink. ?You are [...] liquor (44 mL). Lifestyle Work with your doctor to stay at a healthy weight or to lose weight. Ask your doctor what the best weight is for you. Get at least 30 minutes of exercise that causes your heart to beat faster (aerobic exercise) most days of the week. This may include walking, swimming, or biking. Get at least 30 minutes of exercise that strengthens your muscles (resistance exercise) at least 3 days a week. This may include lifting weights or doing Pilates. Do not smoke or use any products that contain nicotine or tobacco. If you need help quitting, ask your doctor. Check your blood pressure at home as told by your doctor. Keep all follow-up visits. Medicines Take ihrn-jii-gufrcrb and prescription medicines only as told by your doctor. Follow directions carefully. Do not skip doses of blood pressure medicine. The medicine does not work as well if you skip doses.Skipping doses also puts you at risk for problems. Ask your doctor about side effects or reactions to medicines that you should watch for. Contact a doctor if: You think you are having a reaction to the medicine you are taking. You have headaches that keep coming back. You feel dizzy. You have swelling in your ankles. You have trouble with your vision. Get help right away if: You get a very bad headache. You start to feel mixed up (confused). You feel weak or numb. You feel faint. You have very bad pain in your: ?Chest. ?Belly (abdomen). You vomit more than once. You have trouble breathing. These symptoms may be an emergency. Get help right away. Call 911. Do not wait to see if the symptoms will go away. Do not drive yourself to the hospital. Summary Hypertension is another name for high blood pressure. High blood pressure forces your heart to work harder to pump blood. For most people, a normal blood pressure is less than 120/80. Making healthy choices can help lower blood pressure. If your blood pressure does not get lower with healthy choices, you may need to take medicine. This information is not intended to replace advice given to you by your health care provider. Make sure you discuss any questions you have with your health care provider. Document Revised: 06/12/2022 Document Reviewed: 06/12/2022 [employer] Patient Education 2023 [employer] Follow Up Care 10/05/2024 09:49:03 With:Rachel ALBERTS, Vic Friedman, KEI, MED Address: [address] [place] [address] [phone] [phone] When:Within 6 Month(s) Comments:HTN,leg ulcer [facility] 08-01-2025 NotePatient Education Cardiovascular Hypertension, Adult Hypertension is [...] Keep all follow-up visits. Medicines ??? Take mvao-nqm-hyswrnm and prescription medicines only as told by [...] ??? Hypertension is a (more content not included)...[facility] 03-07-2025 Hospital Discharge instructions Patient Education 03/07/2025 10:34:38 Cellulitis, Adult, Zlhi-fi-Odzh Cellulitis, Adult Cellulitis is a skin infection. The infected area is often warm, red, swollen, and sore. It occurs most often on the legs, feet, and toes, but can happen on any part of the body. This condition can be life-threatening without treatment. It is very important to get treated rightaway. What are the causes? This condition is caused by bacteria. The bacteria enter through a break in the skin, such as: A cut. A burn. A bug bite. An animal bite. An open sore. A crack. What increases the risk? Having a weak body's defense system (immune system). Being older than 60 years old. Having a blood sugar problem (diabetes). Having a long-term liver disease (cirrhosis) or kidney disease. Being very overweight (obese). Having a skin problem, such as: ?An itchy rash. ?A rash caused by a fungus. ?A rash with blisters. ?Slow movement of blood in the veins (venous stasis). ?Fluid buildup below the skin (edema). This condition is more likely to occur in people who: Have open cuts, amezquita, bites, or scrapes on the skin. Have been treated with high-energy rays (radiation). Use IV drugs. What are the signs or symptoms? Skin that: ?Looks red or purple, or slightly darker than your usual skin color. ?Has streaks. ?Has spots. ?Is swollen. ?Is sore or painful when you touch it. ?Is warm. A fever. Chills. Blisters. Tiredness (fatigue). How is this treated? Medicines to treat infections or allergies. Rest. Placing cold or warm cloths on the skin. Staying in the hospital, if the condition is very bad. You may need medicines through an IV. Follow these instructions at home: Medicines Take mecs-kem-wqrdtbq and prescription medicines only as told by your doctor. If you were prescribed antibiotics, take them as told by your doctor. Do not stop using them even if you start to feel better. General instructions Drink enough fluid to keep your pee (urine) pale yellow. Do not touch or rub the infected area. Raise (elevate) the infected area above the level of your heart while you are sitting or lying down. Return to your normal activities when your doctor says that it is safe. Place cold or warm cloths on the area as told by your doctor. Keep all follow-up visits. Your doctor will need to make sure that a more serious infection is not developing. Contact a doctor if: You have a fever. You do not start to get better after 1 2 days of treatment. Your bone or joint under the infected area starts to hurt after the skin has healed. Your infection comes back in the same area or another area. Signs of this may include: ?You have a swollen bump in the area. ?Your red area gets larger, turns dark in color, or hurts more. ?You have more fluid coming from the wound. ?Pus or a bad smell develops in your infected area. ?You have more pain. You feel sick and have muscle aches and weakness. You develop vomiting or watery poop that will not go away. Get help right away if: You see red streaks coming from the area. You notice the skin turns purple or black and falls off. These symptoms may be an emergency. Get help right away. Call 911. Do not wait to see if the symptoms will go away. Do not drive yourself to the hospital. This information is not intended to replace advice given to you by your health care provider. Make sure you discuss any questions you have with your health care provider. Document Revised: 04/21/2023 Document Reviewed: 04/21/2023 [employer] Patient Education 2023 [employer]. 03/07/2025 10:34:36 BMI for Adults BMI for Adults Body mass index (BMI) is a number found using a person's weight and height. BMI can help tell how much of a person's weight is made up of fat. BMI does not measure body fat directly. It is used instead of tests that directly measure body fat, which can be difficult and expensive. What are BMI measurements used for? BMI is useful to: Find out if your weight puts you at higher risk for medical problems. Help recommend changes, such as in diet and exercise. This can help you reach a healthy weight. BMIscreening can be done again to see if these changes are working. How is BMI calculated? Your height and weight are measured. The BMI is found from those numbers. This can be done with U.S. or metric measurements. Note that charts and online BMI calculators are available to help you findyour BMI quickly and easily without doing these calculations. To calculate your BMI in U.S. measurements: 1.Measure your weight in pounds (lb). 2.Multiply the number of pounds by 703. So, for an adult who weighs 150 lb, multiply that number by 703: 150 x 703, which equals 105,450. 3.Measure your height in inches. Then multiply that number by itself to get a measurement called inches squared. So, for an adult who is 70 inches tall, the inches squared measurement is 70 inches x 70 inches, which equals 4,900 inches squared. 4.Divide the total from step 2 (number of lb x 703) by the total from step 3 (inches squared): 105,450 4,900 = 21.5. This is your BMI. To calculate your BMI in metric measurements: 1.Measure your weight in kilograms (kg). For this example, the weight is 70 kg. 2.Measure your height in meters (m). Then multiply that number by itself to get a measurement called meters squared. So, for an adult who is 1.75 m tall, the meters squared measurement is 1.75 m x 1.75 m, which equals 3.1 meters squared. 3.Divide the number of kilograms (your weight) by the meters squared number. In this example: 70 3.1 = 22.6. This is your BMI. What do the results mean? BMI charts are used to see if you are underweight, normal weight, overweight, or obese. The following guidelines will be used: Underweight: BMI less than 18.5. Normal weight: BMI between 18.5 and 24.9. Overweight: BMI between 25 and 29.9. Obese: BMI of 30 or above. BMI is a tool and cannot diagnose a condition. Talk with your health care provider about what your BMI means for you. Keep these notes in mind: Weight includes fat and muscle. Someone with a muscular build, such as an athlete, may have a BMI that is higher than 24.9. In cases like these, BMI is not a correct measure of body fat. If you have a BMI of 25 or higher, your provider may need to do more testing to find out if excess body fat is the cause. BMI is measured the same way for males and females. Females usually have more body fat than males of the same height and weight. Where to find more information For more information about BMI, including tools to quickly find your BMI, go to: Centers for Disease Control and Prevention: cdc.gov [place] [employer]: heart.org National Heart, Lung, and Blood [place]: nhlbi.nih.gov This information is not intended to replace advice given to you by your health care provider. Make sure you discuss any questions you have with your health care provider. Document Revised: 05/14/2023 Document Reviewed: 05/07/2023 [employer] Patient Education 2023 [employer]. Follow Up Care 03/03/2025 08:54:15 With:Rachel ALBERTS, KEI Vincent, MED Address: [address] [place] [phone] When: Unknown Comments:as scheduled [facility] 07-01-2025 NotePatient Education Infectious Disease Cellulitis, Adult Cellulitis is a skin infection. The infected area is often warm, red, swollen, and sore. It occurs most often on the legs, feet, and toes, but can happen on any part of the body. This condition can be life-threatening without treatment. It is very important to get treated rightaway. What are the causes? This condition is caused by bacteria. The bacteria enter through a break in the skin, such as: ??? A cut. ??? A burn. ??? A bug bite. ??? An animal bite. ??? An open sore. ??? A crack. What increases the risk? Having a weak body's defense system (immune system). ??? Being older than 60 years old. ??? Having a blood sugar problem (diabetes). ??? Having a long-term liver disease (cirrhosis) or kidney disease. ??? Being very overweight (obese). ??? Having a skin problem, such as: ? An itchy rash. ? A rash caused by a fungus. ? A rash with blisters. ? Slow movement of blood in the veins (venous stasis). ? Fluid buildup below the skin (edema). This condition is more likely to occur in people who: ??? Have open cuts, amezquita, bites, or scrapes on the skin. ??? Have been treated with high-energy rays (radiation). ??? Use IV drugs. What are the signs or symptoms? Skin that: ? Looks red or purple, or slightly darker than your usual skin color. ? Has streaks. ? Has spots. ? Is swollen. ? Is sore or painful when you touch it. ? Is warm. ??? A fever. ??? Chills. ??? Blisters. ??? Tiredness (fatigue). How is this treated? Medicines to treat infections or allergies. ??? Rest. ??? Placing cold or warm cloths on the skin. ??? Staying in the hospital, if the condition is very bad. You may need medicines through an IV. Follow these instructions at home: Medicines ??? Take xvuh-gaq-gbhwfbk and prescription medicines only as told by your doctor. ??? If you were prescribed antibiotics, take them as told by your doctor. Do not stop using them even if you start to feel better. General instructions ??? Drink enough fluid to keep your pee (urine) pale yellow. ??? Do not touch or rub the infected area. ??? Raise (elevate) the infected area above the level of your heart while you are sitting or lying down. ??? Return to your normal activities when your doctor says that it is safe. ??? Place cold or warm cloths on the area as told by your doctor. ??? Keep all follow-up visits. Your doctor will need to make sure that a more serious infection is not developing. Contact a doctor if: ??? You have a fever. ??? You do not start to get better after 1?2 days of treatment. ??? Your bone or joint under the infected area starts to hurt after the skin has healed. ??? Your infection comes back in the same area or another area. Signs of this may include: ? You have a swollen bump in the area. ? Your red area gets larger, turns dark in color, or hurts more. ? You have more fluid coming from the wound. ? Pus or a bad smell develops in your infected area. ? You have more pain. ??? You feel sick and have muscle aches and weakness. ??? You develop vomiting or watery poop that will not go away. Get help right away if: ??? You see red streaks coming from the area. ??? You notice the skin turns purple or black and falls off. These symptoms may be an emergency. Get help right away. Call 911. ??? Do not wait to see if the symptoms will go away. ??? Do not drive yourself to the hospital. This information is not intended to replace advice given to you by your health care provider. Make sure you discuss any questions you have with your health care provider. Document Revised: 04/21/2023 Document Reviewed: 04/21/2023 [employer] Patient Education ? 2023 [employer] Nutrition BMI for Adults Body mass index (BMI) is a number found using a person's weight and height. BMI can help tell how much of a person's weight is made up of fat. BMI does not measure body fat directly. It is used instead of tests that directly measure body fat, which can be difficult and expensive. What are BMI measurements used for? BMI is useful to: ??? Find out if your weight puts you at higher risk for medical problems. ??? Help recommend changes, such as in diet and exercise. This can help you reach a healthy weight.BMI screening can be done again to see if these changes are working. How is BMI calculated? Your height and weight are measured. The BMI is found from those numbers. This can be done with U.S. or metric measurements. Note that charts and online BMI calculators are available to help you findyour BMI quickly and easily without doing these calculations. To calculate your BMI in U.S. measurements: 1. Measure your weight in pounds (lb). 2. Multiply the number of pounds by 703. ??? So, for an adult who weighs 150 lb, multiply that number by 703: 150 x 703, which equals 105,450. 3. Measure your height in inc (more content not included)...[facility]05-20-20[facility] History of Present illness Narrative* Kenn Hickey, PhD - 01/24/2025 9:00 AM EDT Images from the original note were not included. Kenn Hickey, PhD Spinal Cord Stimulator/Pain Pump Candidate Evaluation Will Ralph is a 39 y.o. male presents in office for a Spinal Cord Stimulator/Pain Pump CandidateEvaluation. PRESENTING PROBLEM: Pain radiating down the right [...] HPI MEDICATIONS: No current outpatient medications EDUCATION/VOCATION/SOCIAL: [place] language [place]. Completed high school education without any academic struggles. 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 Single, never , no children. Resides alone. ASSESSMENT: FINDINGS: Able to demonstrate reasonable understanding of procedure: Yes, able to appreciate procedure as well as weigh associated pros and cons. No concerns regarding implantation of device. Questions addressed. Realistic post-surgical expectations: Yes, hopeful for any form of positive response in order to bemore comfortable and physically active. Ability to operate device: Yes. Family/social support: Yes. History of alcohol/substance abuse: Remote history of overusing alcohol, none for the past 3 years.No history of illicit substance use or smoking. [...] of this individual. Please contact me with [employer] at [phone]. documented in this encounterSSM Health [id number] Evaluation + Plan note Extracted from:Title:chronic painAuthor:Bruno HURST Evelio Cosme.Date:01/12/25 Patient is presenting with a complex medical [...] had about 50% relief at the 6-hour smiley. He feels that this was beneficial enough [...] Appointment Date:04/07/2025 08:40:00 AM Scheduled Provider:Vic Carrion Location:[facility] Appointment Type: Open Appointment Date:09/28/2025 02:40:00 [...] B12 Level 09/25/25 Radiology* US Liver 05/08/25 [facility] 05-08-2025 NoteConsultation Note Patient is presenting [...] had about 50% relief at the 6-hour smiley. 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 Future Appointments Appointment Date:01/12/2025 08:15:00 AM Scheduled Provider:Evelio Carr DO [facility] Type:Pain Management - Follow Up (FT) Appointment Date:04/07/2025 08:40:00 AM Scheduled Provider:Vic Carrion Location:[facility] Appointment Type:FM Open Appointment Date:09/28/2025 02:40:00 PM Scheduled Provider:Kavon Lu DO [facility]:ONC Office Visit 20 () Future Scheduled Tests Laboratory* MELLISA and PE, [...] B12 Level 09/25/25 Radiology* US Liver 05/08/25 [facility] 04-29-2025 NoteOperative Report Diagnosis: G57.80, disorders [...] Right diagnostic saphenous nerve block under ultrasound guidance.[facility] SystemComment on above:Result Comment: Electronically Signed By: Evelio Carr DO\.br\Date and Time Signed: 01/03/25 11:55 [id number] NotePatient Education Cardiovascular Hypertension, Adult Hypertension is [...] Keep all follow-up visits. Medicines ??? Take deye-xbe-gwkwzko and prescription medicines only as told by [...] ??? Hypertension is a (more content not included)...[facility] 12-20-2024 Evaluation + Plan noteExtracted from:Title:Pain Managment Follow up Author:Beronica PARKER, NoreenandaDate:12/20/24 Impression and Plan Patient is a 39-year-old [...] block to be done under fluoroscopy for d iagnostic purposes. Procedure was discussed. Risk and benefits [...] index results. For concerning screenings had a discussionwith the patient, provided patient education, and recommended follow-up with primary care provider when appropriate. Patient noted with risk of falling received education on strength, gait, and balance training to prevent future risk of falling. Future Appointments Appointment Date:12/21/2024 08:20:00 AM Scheduled Provider:Vic Carrion Location:[facility] Appointment Type: Open Appointment Date:04/07/2025 08:40:00 AM Scheduled Provider:Vic Carrion Location:[facility] Appointment Type: Open Appointment Date:09/28/2025 02:40:00 [...] B12 Level 09/25/25 Radiology* US Liver 05/08/25 [facility] 04-15-2025 NoteConsultation Note Patient: WILL RALPH [...] BID, # 180 tab(s), Refills(s) 3, Pharmacy: [facility], 170, cm, 10/05/24 9:01:00 EST, Height/Length Dosing, 78.5, kg, 10/05/24 9:11:00 EST, Weight Dosing Narcan 4 mg/0.1 mL nasal spray: 4 mg, Nasal, As Directed, for suspected overdose symptoms, # 1 kit(s), Refills(s) 0, Pharmacy: [facility], 170, cm, 10/05/24 9:01:00 EST, Height/LengthDosing, 78.5, kg, 10/05/24 9:11:00 EST, Weight Dosing Zofran ODT 4 mg Tab: 4 mg = 1 tab(s), Oral, TID, PRN Nausea, # 60 tab(s), Refills(s) 0, Pharmacy: [id number], 170, cm, 05/12/24 15:39:00 EDT, Height/Length Dosing, 73, kg, 05/12/24 15:39:00 EDT, Weight Dosing oxyCODONE 5 mg Tab: 0.5 tab, Oral, q6hr, PRN for pain, for leg pain- severe pain only, # 28 tab(s),Refills(s) 0, Pharmacy: [facility], 170, cm, 10/05/24 9:01:00 EST, Height/Length Dosing, 78.5, kg, 10/05/24 9:11:00 EST, Weight Dosing spironolactone 50 mg Tab: 50 mg = 1 tab(s), Oral, Daily, X 90 day(s), # 90 tab(s), Refills(s) 3, Pharmacy: [facility], 170, cm, 11/21/24 9:32:00 EDT, Height/Length Dosing, 77.5, kg, 11/21/24 9:32:00 EDT, Weight Dosing Documented Medications Documented [facility] DME Prescription: See Instructions, Cornell SAP Dressing 4 x 4 dressing Misc DME Prescription: See Instructions, LiquidIV hydration Misc DME Prescription: See Instructions, Muscle & joint balm CBD 880mg furosemide 20 mg Tab: = 1 tab(s), Oral, Daily, PRN Edema, Refills(s) 0 magnesium citrate: Oral, Refill(s) 0, Constipation Problem list: All Problems Thrombocytopenia / SNOMED CT 123276092 / Confirmed Elevated INR / SNOMED CT 7163250049 / Confirmed Smokeless tobacco use / SNOMED CT 6216895110 / Confirmed Hypokalemia / SNOMED CT 41093369 / Confirmed Elevated fasting glucose / SNOMED CT 027365498 / Confirmed Anemia / SNOMED CT 462036847 / Confirmed Alcohol use disorder in remission / SNOMED CT 89349057 / Confirmed Liver cirrhosis, alcoholic / SNOMED CT 6119917926 / Confirmed Venous ulcer of right leg / SNOMED CT 0804290909 / Confirmed Esophageal varices / SNOMED CT 61772198 / Confirmed Dependent edema / SNOMED CT 345410335 / Confirmed Varicose veins of legs / SNOMED CT 812834763 / Confirmed Portal venous hypertension / SNOMED CT 93179026 / Confirmed HTN (hypertension) / SNOMED CT 1852925851 / Confirmed Headache / SNOMED CT 36903747 / Confirmed Nausea / SNOMED CT 0353108236 / Confirmed Cirrhosis / SNOMED CT 49086679 / Confirmed Tobacco user / SNOMED CT 835441819 / Confirmed 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 Severe back pain / SNOMED CT 628788828 / Confirmed Diarrhea / SNOMED CT 838143933 / Confirmed Cholelithiases / SNOMED CT 067306844 / Confirmed Epigastric pain / SNOMED CT 823280859 / Confirmed Vitamin D deficiency / SNOMED CT 37367879 / Confirmed Abnormal stress test / SNOMED CT 0312538435 / Confirmed Iron deficiency anemia / SNOMED CT 413996377 / Confirmed Superficial thrombophlebitis of leg / SNOMED CT 59291240 / Confirmed Elevated liver enzymes / SNOMED CT 2664966511 / Confirmed Hemolytic anemia / SNOMED CT 760188591 / Confirmed Cellulitis of right leg / SNOMED CT 144643208910658 / Confirmed BMI 26.0-26.9,adult / SNOMED CT 8334996112 (more content not included)...[facility] SystemComment on above:Result Comment: Electronically Signed By: Sadie Loco PA-C\.br\Date and Time Signed: 12/20/24 08:50 [id number] Evaluation + Plan noteExtracted from:Title:Pain Managment Follow upAuthor: Sadie Loco PA-CDate:11/21/24 Impression and Plan Patient is a 39-year-old [...] Appointment Date:04/07/2025 08:40:00 AM Scheduled Provider:Vic Carrion Location:[facility] Appointment Type:FM Open Appointment Date:09/28/2025 02:40:00 [...] B12 Level 09/25/25 Radiology* US Liver 05/08/25 [facility] 03-17-2025 NoteConsultation Note Patient: WILL RALPH [...] BID, # 180 tab(s), Refills(s) 3, Pharmacy: [facility], 170, cm, 10/05/24 9:01:00 EST, Height/Length Dosing, 78.5, kg, 10/05/24 9:11:00 EST, Weight Dosing Narcan 4 mg/0.1 mL nasal spray: 4 mg, Nasal, As Directed, for suspected overdose symptoms, # 1 kit(s), Refills(s) 0, Pharmacy: [facility], 170, cm, 10/05/24 9:01:00 EST, Height/LengthDosing, 78.5, kg, 10/05/24 9:11:00 EST, Weight Dosing Zofran ODT 4 mg Tab: 4 mg = 1 tab(s), Oral, TID, PRN Nausea, # 60 tab(s), Refills(s) 0, Pharmacy: [facility] #[id number], 170, cm, 05/12/24 15:39:00 EDT, Height/Length Dosing, 73, kg, 05/12/24 15:39:00 EDT, Weight Dosing gabapentin 600 mg Tab: 1,200 mg = 2 tab(s), Oral, TID, X 30 day(s), # 180 tab(s), Refills(s) 0, Pharmacy: [facility], 170, cm, 10/26/24 10:30:00 EST, Height/Length Dosing, 78.9, kg, 10/26/24 10:30:00 EST, Weight Dosing oxyCODONE 5 mg Tab: 0.5 tab, Oral, q6hr, PRN for pain, for leg pain- severe pain only, # 28 tab(s),Refills(s) 0, Pharmacy: [facility], 170, cm, 10/05/24 9:01:00 EST, Height/Length Dosing, 78.5, kg, 10/05/24 9:11:00 EST, Weight Dosing spironolactone 50 mg Tab: 50 mg = 1 tab(s), Oral, Daily, # 90 tab(s), Refills(s) 3, Pharmacy: [facility] #[id number], 170, cm, 12/23/23 11:10:00 EDT, Height/Length Dosing, 70.3, kg, 12/23/23 11:10:00 EDT, Weight Dosing Documented Medications Documented Misc DME Prescription: See Instructions, Cornell SAP Dressing 4 x 4 dressing Misc DME Prescription: See Instructions, LiquidIV hydration Misc DME Prescription: See Instructions, Muscle & joint balm CBD 880mg furosemide 20 mg Tab: = 1 tab(s), Oral, Daily, PRN Edema, Refills(s) 0 magnesium citrate: Oral, Refill(s) 0, Constipation Problem list: All Problems Thrombocytopenia / SNOMED CT 667127130 / Confirmed Elevated INR / SNOMED CT 5170469725 / Confirmed Smokeless tobacco use / SNOMED CT 7621448270 / Confirmed Hypokalemia / SNOMED CT 13112434 / Confirmed Elevated fasting glucose / SNOMED CT 163979871 / Confirmed Anemia / SNOMED CT 876562677 / Confirmed Alcohol use disorder in remission / SNOMED CT 03393645 / Confirmed Liver cirrhosis, alcoholic / SNOMED CT 9310075092 / Confirmed Venous ulcer of right leg / SNOMED CT 6978517486 / Confirmed Esophageal varices / SNOMED CT 55990972 / Confirmed Dependent edema / SNOMED CT 203920699 / Confirmed Varicose veins of legs / SNOMED CT 667408874 / Confirmed Portal venous hypertension / SNOMED CT 17074926 / Confirmed HTN (hypertension) / SNOMED CT 5311988730 / Confirmed Headache / SNOMED CT 46025773 / Confirmed Nausea / SNOMED CT 5536179275 / Confirmed Cirrhosis / SNOMED CT 73005314 / Confirmed Tobacco user / SNOMED CT 706245584 / Confirmed Megaloblastic anemia / 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 Document Revised: 07/10/2021 Document Reviewed: 07/10/2021 [employer] Patient Education ? 2023 [employer] Acute Pain, Adult Acute pain is [...] these instructions at home: Medicines ??? Take gayv-hfk-pabchmi and prescription medicines only as told by [...] Do not take othe (more content not included)...[facility] 11-18-2024 NoteProgress Note-Physician Patient: WILL RALPH Age: 39 years Sex: Male : 1985 Associated Diagnoses: None Author: Josiane Chin MD Postoperative Information Postoperative disposition: Postoperative disposition: To PACU. Optimetrix number: Optimetrix number [id number]. Anesthetic utilized: General. Health Status Allergies: Allergic [...] Discharge when meets criteria ( To home ).[facility] SystemComment on above:Result Comment: Electronically Signed By: Josiane Chin MD\.br\Date and Time Signed: 11/18/24 14:46 EDT 11-18-2024 Evaluation + Plan noteExtracted from:Title:ANES Post-operative Note---GeneralAuthor:Josiane Chin MDDate:11/18/24 Plan Transfer/Discharge: Transfer/Discharge Discharge when meets criteria ( To home ). Extracted from:Title:1Preop H&PAuthor:Mario Evans MDate:11/18/24 Impression and Plan Impression: cirrhosis Plan: -EGD Extracted from:Title:ANES Pre-operative Note uthor:Josiane Chin MDDate: 11/18/24 Plan [place] [employer] Anesthesiologists (ASA) physical status classification: Class III. Anesthetic Preoperative Plan: Anesthesia General. Future Appointments Appointment Date:11/21/2024 08:30:00 AM Scheduled Provider:Sadie Loco PA-C [facility] Type:Pain Management - Follow Up (FT) Appointment Date:11/21/2024 09:15:00 AM Scheduled Provider:Mario Evans MD Location[facility] Appointment Type:BADH Follow Up Appointment Date:04/07/2025 08:40:00 AM Scheduled Provider:Vic Carrion Location:[facility] Appointment Type:FM Open Appointment Date:09/28/2025 02:40:00 PM Scheduled Provider:Kavon Lu DO [facility] Type:ONC Office Visit 20 (FT) [...] B12 Level 09/25/25 Radiology* US Liver 05/08/25 [facility] 03-14-2025 Hospital Discharge instructions Patient Education [...] what activities are safe for you. Take kiqe-ccr-swctrry and prescription medicines only as told by [...] provider. Document Revised: 12/03/2022 Document Reviewed: 12/03/2022 [employer] Patient Education 2023 [employer]. [facility] 03-14-2025 NotePatient Education - Text Gastroenterology [...] activities are safe for you. ??? Take dnhd-nts-ovsuyia and prescription medicines only as told by [...] provider. Document Revised: 12/03/2022 Document Reviewed: 12/03/2022 [employer] Patient Education ? 2023 [employer].[facility] 11-18-2024 NoteEndoscopic Procedure Report - Other Patient: [...] stomach. 3. Normal duodenum. Images Procedure images: [id number].jpg [id number]_[id number].jpg [id number]_hd_[id number].jpg [id number]_[id number] . Post-Procedure [...] -Repeat EGD in 1 [facility]Result Comment: Electronically Signed By: Carrol MULTANI, Mario Xiong\.br\Date and Time Signed: 11/18/24 09:01 EDTOther Comment: Missing Attachment - attachment storage system not supported [id number] Can be viewed in source systemMissing Attachment - attachment storage system not supported [id number] Can be viewed insource systemMissing Attachment - attachment storage system not supported [id number] Can be viewed in source systemMissing Attachment - attachment storage system not supported [id number] Can be viewed in source systemMissing Attachment - attachment storage system not supported [id number] Can be viewed in source systemMissing Attachment - attachment storage system not supported [id number] Can be viewed in source systemMissing Attachment - attachment storage system not supported [id number] Can be viewed in source systemMissing Attachment - attachment storage system not supported [id number] Can be viewed in source [id number] NoteProgress Note-Physician Patient: WILL RALPH Age: 39 years Sex: Male : 1985 Associated Diagnoses: None Author: Josiane Chin MD Preoperative Information Anesthesia Preop Info: Time patient [...] BID, # 180 tab(s), Refills(s) 3, [facility]acy: [facility], 170, cm, 10/05/24 9:01:00 EST, Height/Length Dosing, 78.5, kg, 10/05/24 9:11:00 EST, Weight Dosing Narcan 4 mg/0.1 mL nasal spray: 4 mg, Nasal, As Directed, for suspected overdose symptoms, # 1 kit(s), Refills(s) 0, Pharmacy: [facility], 170, cm, 10/05/24 9:01:00 EST, Height/LengthDosing, 78.5, kg, 10/05/24 9:11:00 EST, Weight Dosing Zofran ODT 4 mg Tab: 4 mg = 1 tab(s), Oral, TID, PRN Nausea, # 60 tab(s), Refills(s) 0, Pharmacy: [facility] #[id number], 170, cm, 05/12/24 15:39:00 EDT, Height/Length Dosing, 73, kg, 05/12/24 15:39:00 EDT, Weight Dosing gabapentin 300 mg Cap: See Instructions, take per office provided instructions until you are taking2 tablets three times per day, # 120 tab(s), Refills(s) 0, Pharmacy: [facility], 170, cm, 10/26/24 10:30:00 EST, Height/Length Dosing, 78.9, kg, 10/26/24 10:3... gabapentin 600 mg Tab: 1,200 mg = 2 tab(s), Oral, TID, X 30 day(s), # 180 tab(s), Refills(s) 0, Pharmacy: [facility], 170, cm, 10/26/24 10:30:00 EST, Height/Length Dosing, 78.9, kg, 10/26/24 10:30:00 EST, Weight Dosing oxyCODONE 5 mg Tab: 0.5 tab, Oral, q6hr, PRN for pain, for leg pain- severe pain only, # 28 tab(s),Refills(s) 0, Pharmacy: [facility], 170, cm, 10/05/24 9:01:00 EST, Height/Length Dosing, 78.5, kg, 10/05/24 9:11:00 EST, Weight Dosing spironolactone 50 mg Tab: 50 mg = 1 tab(s), Oral, Daily, # 90 tab(s), Refills(s) 3, [facility]: [id number], 170, cm, 12/23/23 11:10:00 EDT, Height/Length Dosing, 70.3, kg, 12/23/23 11:10:00 EDT, Weight Dosing Documented Medications Documented Mis DME Prescription: See Instructions, [employer] SAP Dressing 4 x 4 dressing Misc [...] Problems Abnormal stress test / SNOMED CT 5872415223 / Confirmed Alcohol use disorder in remission / SNOMED CT 95182034 / Confirmed Anemia / SNOMED CT 763897843 / Confirmed BMI 26.0-26.9,adult / SNOMED CT 1002117139 / Confirmed Cellulitis of right leg / SNOMED CT 232507184312691 / Confirmed Cholelithiases / SNOMED CT 977939731 / Confirmed Cirrhosis / SNOMED CT 28966190 / Confirmed Dependent edema / SNOMED CT 923639391 / Confirmed Diarrhea / SNOMED CT 513097938 / Confirmed Elevated fasting glucose / SNOMED CT 392913625 / Confirmed Elevated INR / SNOMED CT 3709951240 / Confirmed Elevated liver enzymes / SNOMED CT 9430372234 / Confirmed Epigastric pain / SNOMED CT 703800623 / Confirmed Esophageal varices / SNOMED CT 22792840 / Confi (more content not included)... [facility] SystemComment [facility] above:Result Comment: Electronically Signed By: Giuseppe [...] BID, # 180 tab(s), Refills(s) 3, Pharmacy: [facility], 170, cm, 10/05/24 9:01:00 EST, Height/Length Dosing, 78.5, kg, 10/05/24 9:11:00 EST, Weight Dosing Narcan 4 mg/0.1 mL nasal spray: 4 mg, Nasal, As Directed, for suspected overdose symptoms, # 1 kit(s), Refills(s) 0, Pharmacy: [facility], 170, cm, 10/05/24 9:01:00 EST, Height/LengthDosing, 78.5, kg, 10/05/24 9:11:00 EST, Weight Dosing Zofran ODT 4 mg Tab: 4 mg = 1 tab(s), Oral, TID, PRN Nausea, # 60 tab(s), Refills(s) 0, Pharmacy: [facility] #[id number], 170, cm, 05/12/24 15:39:00 EDT, Height/Length Dosing, 73, kg, 05/12/24 15:39:00 EDT, Weight Dosing gabapentin 300 mg Cap: See Instructions, take per office provided instructions until you are taking2 tablets three times per day, # 120 tab(s), Refills(s) 0, Pharmacy: [facility], 170, cm, 10/26/24 10:30:00 EST, Height/Length Dosing, 78.9, kg, 10/26/24 10:3... gabapentin 600 mg Tab: 1,200 mg = 2 tab(s), Oral, TID, X 30 day(s), # 180 tab(s), Refills(s) 0, Pharmacy: [facility], 170, cm, 10/26/24 10:30:00 EST, Height/Length Dosing, 78.9, kg, 10/26/24 10:30:00 EST, Weight Dosing oxyCODONE 5 mg Tab: 0.5 tab, Oral, q6hr, PRN for pain, for leg pain- severe pain only, # 28 tab(s),Refills(s) 0, Pharmacy: [facility], 170, cm, 10/05/24 9:01:00 EST, Height/Length Dosing, 78.5, kg, 10/05/24 9:11:00 EST, Weight Dosing spironolactone 50 mg Tab: 50 mg = 1 tab(s), Oral, Daily, # 90 tab(s), Refills(s) 3, Pharmacy: [facility] #[id number], 170, cm, 12/23/23 11:10:00 EDT, Height/Length Dosing, 70.3, kg, 12/23/23 11:10:00 EDT, Weight Dosing Documented Medications Documented [facility] DME Prescription: See Instructions, [employer] SAP Dressing 4 x 4 dressing Mis [...] list: All Problems Thrombocytopenia / SNOMED CT 119776205 / Confirmed Elevated INR / SNOMED CT 4747150459 / Confirmed Smokeless tobacco use / SNOMED CT 3879196371 / Confirmed Hypokalemia / SNOMED CT 92038673 / Confirmed Elevated fasting glucose / SNOMED CT 120263598 / Confirmed Anemia / SNOMED CT 606668860 / Confirmed Alcohol use disorder in remission / SNOMED CT 87960521 / Confirmed Liver cirrhosis, alcoholic / SNOMED CT 6538208423 / Confirmed Venous ulcer of right leg / SNOMED CT 9459978697 / Confirmed Esophageal varices / SNOMED CT 92840159 / Confirmed Dependent edema / SNOMED CT 446561509 / Confirmed Varicose veins of legs / SNOMED CT 595091530 / Confirmed Portal venous hypertension / SNOMED CT 05148538 / Confirmed HTN (hypertension) / SNOMED CT 4321873290 / Confirmed Headache / SNOMED CT 37049825 / Confirmed Nausea / SNOMED CT 3413168245 / Confirmed Cirrhosis / SNOMED CT 62495161 / Confirmed Tobacco user / SNOMED CT 017344400 / Confirmed 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 Severe back pain / SNOMED CT 715004201 / Confirmed Diarrhea / SNOMED CT 945159599 / Confirmed Cholelithiases / SNOMED CT 433785527 / Confirmed Epigastric pain / SNOMED CT 869410242 / Confirmed Vitamin D deficiency / SNOMED CT 78387254 / Confirmed Abnormal stress test / SNOMED CT 2170129199 / Confirmed Iron deficiency anemia / SNOMED CT 982221538 / Confirmed Superfici (more content not included)...[facility] SystemComment on above:Result Comment: Electronically Signed By: Carrol MULTANI, Mario Xiong\.chidi\Date and Time Signed: 11/18/24 08:51 [id number] Evaluation + Plan noteExtracted from:Title:chronic painAuthor:Evelio Carr DO.Date:10/26/24 Patient is presenting with a complex medical [...] Extremity Appointment Date:11/11/2024 08:30:00 AM Scheduled [facility]: [facility] Type:US Abdominal/Pelvis (FT) Appointment Date:11/18/2024 08:15:00 AM Scheduled Provider: Location:[facility] Appointment Type:Surgery FT Appointment Date:11/21/2024 09:15:00 AM Scheduled Provider:Mario Evans MD Location:[facility] Appointment Type:BADH Follow Up Appointment Date:04/07/2025 08:40:00 AM Scheduled Provider:Vic Carrion Location:[facility] Appointment Type:FM Open Appointment Date:09/28/2025 [...] B12 Level 09/25/25 Radiology* US Liver 11/11/24 [facility] 02-19-2025 NoteConsultation Note Patient is presenting [...] call with any questions or concerns that arise.[facility] SystemComment on above:Result Comment: Electronically Signed By: Evelio Carr DO.br\Date and Time Signed: 10/26/24 11:30 [id number] Hospital Discharge instructions Patient Education 10/05/2024 09:52:58 Heat Therapy, Kkgx-iv-Jiza Heat Therapy Heat therapy can help ease [...] provider. Document Revised: 06/26/2021 Document Reviewed: 06/26/2021 [employer] Patient Education 2023 [employer]. 10/05/2024 09:52:50 How to Take Your Blood Pressure, Edlf-zn-Rvby How to Take Your Blood Pressure Blood [...] Follow these instructions at home: Medicines Take adiy-xka-vlnomsa and prescription medicines only as told by [...] monitor. You can buy one at a [employer] or online. When choosing one: Choose one with an arm cuff. Choose one that wraps around your upper arm. Only one finger should fit between your arm and the cuff. Do not choose one that measures your blood pressure from your wrist or finger. Where to find more information [place] Heart Association: www.heart.org Contact a doctor if: [...] provider. Document Revised: 05/08/2022 Document Reviewed: 05/08/2022 [employer] Patient Education 2023 [employer]. 10/05/2024 09:52:47 Esophageal Varices Esophageal Varices Esophageal [...] Follow these instructions at home: Medicines Take twpr-tqy-wwfhcjl and prescription medicines only as told by [...] provider. Document Revised: 12/11/2020 Document Reviewed: 12/11/2020 [employer] Patient Education 2023 [employer]. 10/05/2024 09:52:46 Cirrhosis Cirrhosis Cirrhosis is long-term [...] provider before taking any new medicines, including esbm-lrg-bpndajz medicines such as NSAIDs. Rest as needed. [...] provider. Document Revised: 06/06/2021 Document Reviewed: 06/06/2021 [employer] Patient Education 2023 [employer]. Follow Up Care 08/19/2024 16:34:05 With:Rachel ALBERTS, Vic Friedman, [facility], [facility] Address: [address] [place] [phone] When:Within 6 Month(s) Comments:sooner if needed. keep specialists appointments. [facility] 01-29-2025 NotePatient Education Gastroenterology [...] these instructions at home: Medicines ??? Take vldz-psw-lpkjmar and prescription medicines only as told by [...] provider. Document Revised: 12/11/2020 Document Reviewed: 12/11/2020 [employer] Patient Education ? 2023 [employer] Cirrhosis Cirrhosis is long-term (chronic) liver injury. The liver is the body's largest internal organ, and it performs many functions. It converts food into energy, removes toxic material from the blood, makes important proteins, and absor (more content not included)...[facility] NoteOncology Progress Note Chief Complaint Anemia; here [...] hemoglovin is 13.9 so will continue to [facility]. No new medicAL issues recently. continues [...] anemia per outside records previously seen at [facility] hematology by Dr. Tanvir Jaramillo Anna Black, last visit April 2023 Initially treated with 1mg/kg prednisone January 2022 but he did not tolerate this d/t insomnia and agitation, so stopped after 7 days. He was switched to MMF 1000mg BID stopped along with prophylactic Bactrim. He did not feel w (more content not included)...[facility] Hospital Discharge instructions Patient Education 08/19/2024 17:26:11 [...] Follow these instructions at home: Medicines Take szpc-hkl-wquapmu and prescription medicines only as told by [...] provider. Document Revised: 02/06/2022 Document Reviewed: 02/06/2022 [employer] Patient Education 2023 [employer]. 08/19/2024 17:26:08 Hypertension, Adult Hypertension, Adult High [...] follow-up visits. This is important. Medicines Take myce-vpe-sioihkm and prescription medicines only as told by [...] provider. Document Revised: 07/01/2022 Document Reviewed: 07/01/2022 [employer] Patient Education 2023 [employer]. 08/19/2024 17:26:07 Form - Blood Pressure Record [...] provider. Document Revised: 05/08/2022 Document Reviewed: 05/08/2022 [employer] Patient Education 2023 [employer] 08/19/2024 17:26:06 DASH Eating Plan DASH [...] Dairy Whole or 2% milk, cream, and wsxr-nav-wwky. Whole or full-fat cream cheese. Whole-fat or [...] should avoid. Talk to a dietitian natalie more. Where to find more information National Heart, Lung, and Blood [place] (NHLBI): nhlbi.nih.gov [place] Heart Association (AHA): heart.org Academy of Nutrition and Dietetics: eatright.org National Kidney Foundation (NKF): kidney.org This information is not intended to replace advice given to you by your health care provider. Make sure you discuss any questions you have with your health care provider. Document Revised: 09/10/2023 Document Reviewed: 09/10/2023 [employer] Patient Education 2023 [employer]. 08/19/2024 17:26:03 Esophageal Varices Esophageal Varices Esophageal [...] Follow these instructions at home: Medicines Take dcri-xwf-xndxaej and prescription medicines only as told by [...] provider. Document Revised: 12/11/2020 Document Reviewed: 12/11/2020 [employer] Patient Education 2023 [employer]. 08/19/2024 17:26:03 Cirrhosis Cirrhosis Cirrhosis is long-term [...] provider before taking any new medicines, including ekrk-oaa-jwzjwkx medicines such as NSAIDs. Rest as needed. [...] provider. Document Revised: 06/06/2021 Document Reviewed: 06/06/2021 [employer] Patient Education 2023 [employer]. Follow Up Care 04/29/2024 10:12:47 With:Johanny Gutierrez Address: When:Within 3 Day(s) [facility] 12-13-2024 NotePatient Education Cardiovascular [...] one 12 oz bottle (more content not included)...[facility] Evaluation + Plan note* Assessment & Plan Note - Radha Bertrand MD - 05/12/2024 10:03 AM EDTAssociated Problem(s): Lymphedema we have ruled out AV malformation with the angiogram and there is no clear AV fistula, To me this is more available lymphedema I am referring him for complex decongestive therapy [facility]09-05-2024 Miscellaneous Notes* Assessment & Plan Note - Radha Bertrand MD - 05/12/2024 10:03 AM EDTAssociated Problem(s): Lymphedema we have ruled out AV malformation with the angiogram and there is no clear AV fistula, To me this is more available lymphedema I am referring him for complex decongestive therapy documented in this encounterC[facility] History of Present illness Narrative* Radha Bertrand MD - 05/12/2024 9:30 AM EDT Images from the original note were not included. To: Loreta Cummings, [employer] OPERATOR HPI: Will Ralph is a 38 y.o. [...] 04/26/2024 Performed by Radha Bertrand MD at [facility] SPECIAL PROC ESOPHAGOGASTRODUODENOSCOPY W/ BANDING 11/2023 [facility] LEG SURGERY Left 2022 calf [...] Resource Strain: High Risk (02/27/2023) Received from [employer] Overall Financial Resource Strain (CARDIA) Difficulty of Paying Living Expenses: Very hard Food Insecurity: No Food Insecurity (05/12/2024) Hunger Screening Food Insecurity - Worry: Never True Food Insecurity - Inability: Never True Transportation Needs: No Transportation Needs (02/27/2023) Received from [employer] PRAPARE - Transportation Lack of Transportation (Medical): No Lack of Transportation (Non-Medical): No Physical Activity: Sufficiently Active (02/27/2023) Received from [employer] Exercise Vital Sign Days of Exercise per Week: 7 days Minutes of Exercise per Session: 120 min Stress: Stress Concern Present (02/27/2023) [facility] [place] of Occupational Health - Occupational Stress Questionnaire Feeling of Stress : Very much Social Connections: Socially Isolated (02/27/2023) Received from [employer] Social Connection and Isolation Panel [NHANES] Frequency of Communication with Friends and Family: More than three times a week Frequency of Social Gatherings with Friends and Family: Patient declined Attends Alevism Services: Never Active Member of Clubs or Organizations: No Attends Club or Organization Meetings: Never Marital Status: Never Interpersonal Safety: Not At Risk (02/27/2023) Received from [employer] Humiliation, Afraid, Rape, and Kick questionnaire Fear of Current or Ex-Partner: No Emotionally Abused: No Physically Abused: No Sexually Abused: No Housing Instability: High Risk (02/27/2023) Received from [employer] Housing Stability Vital Sign Unable to Pay [...] you for your understanding. documented in [facility] encounterC[facility] NoteOncology Progress Note Chief Complaint Anemia; [...] anemia per outside records previously seen at [facility] hematology by Dr. Tanvir Jaramillo Anna Bah, last visit April 2023 Initially treated with [...] hemolysis currently. Macrocytosis is (more content not included)...[facility] Hospital Discharge instructions Patient Education 04/29/2024 10:25:40 [...] Follow these instructions at home: Medicines Take uvzw-jwr-nbvdgwt and prescription medicines only as told by [...] provider. Document Revised: 02/06/2022 Document Reviewed: 02/06/2022 [employer] Patient Education 2022 [employer] 04/29/2024 10:25:38 Nausea, Adult Nausea, Adult Nausea [...] water added (diluted fruit juice). Eat bland, krvc-jc-udubtv foods in small amounts as you are able. These foods include bananas, applesauce, rice, lean meats, toast, and crackers. Avoid drinking fluids that contain a lot of sugar or caffeine, such as energy drinks, sports drinks, and soda. Avoid alcohol. Avoid spicy or fatty foods. General instructions Take dnqr-upf-pgjpqhl and prescription medicines only as told by your health care provider. Rest at home while you recover. Drink enough fluid to keep your urine pale yellow. Breathe slowly and deeply when you feel nauseous. Avoid smelling things that have strong odors. Wash your hands often using soap and water for at least 20 seconds. If soap and water are not available, use hand doll eye setter. Make sure that everyone in your household [...] recommendations for eating and drinking and take tyzk-apa-vszyhcz and prescription medicinesonly as told by your [...] provider. Document Revised: 02/28/2022 Document Reviewed: 02/28/2022 [employer] Patient Education 2022 [employer]. 04/29/2024 10:25:33 Smokeless Tobacco Information, Teen Smokeless [...] Apps for mobile phones, including the free [employer] lauren. Hotlines, such as 2-803-BKFG-NOW ( ). Where to find more information You can learn more about the risks of using smokeless tobacco and the benefits of quitting from these sources: Centers for Disease Control and Prevention: cdc.gov National [place] on Drug Abuse: avery.nih.gov [place] Academy of Pediatrics: healthychildren.org [place] Cancer Society: cancer.org Contact a health care [...] provider. Document Revised: 05/21/2022 Document Reviewed: 05/21/2022 [employer] Patient Education 2022 [employer]. 04/29/2024 10:25:29 Peripheral Edema Peripheral Edema Peripheral [...] by your health care provider. Medicines Take dheu-zzo-rfzwlhm and prescription medicines only as told by [...] provider. Document Revised: 04/28/2022 Document Reviewed: 04/28/2022 [employer] Patient Education 2022 [employer]. 04/29/2024 10:25:24 Anemia Anemia Anemia is a [...] spleen. Follow these instructions at home: Take xggs-vck-azsehom and prescription medicines only as told by [...] provider. Document Revised: 11/17/2022 Document Reviewed: 11/17/2022 [employer] Patient Education 2022 [employer]. 04/29/2024 10:25:22 DASH Eating Plan DASH Eating [...] Dairy Whole or 2% milk, cream, and niub-zie-ahtp. Whole or full-fat cream cheese. Whole-fat or [...] more information National Heart, Lung, and Blood [place]: www.nhlbi.nih.gov [place] Heart Association: www.heart.org Academy of Nutrition and [...] provider. Document Revised: 07/27/2020 Document Reviewed: 07/27/2020 [employer] Patient Education 2022 [employer]. 04/29/2024 10:25:19 Esophageal Varices Esophageal Varices Esophageal [...] Follow these instructions at home: Medicines Take rnew-pek-qngathh and prescription medicines only as told by [...] provider. Document Revised: 12/11/2020 Document Reviewed: 12/11/2020 [employer] Patient Education 2022 [employer]. 04/29/2024 10:25:18 Cirrhosis Cirrhosis Cirrhosis is long-term [...] provider before taking any new medicines, including rnlh-qwb-hwwfjsl medicines such as NSAIDs. Rest as needed. [...] provider. Document Revised: 06/06/2021 Document Reviewed: 06/06/2021 [employer] Patient Education 2022 [employer]. 04/29/2024 10:25:16 Thrombophlebitis Thrombophlebitis Thrombophlebitis is a [...] Follow these instructions at home: Medicines Take kuzu-ouj-eawmpgw and prescription medicines only as told by [...] provider. Document Revised: 02/17/2022 Document Reviewed: 02/17/2022 [employer] Patient Education 2022 [employer]. Follow Up Care 01/27/2024 11:04:00 With:Loreta Padilla FAM, [facility] Address: [address] [place] [address] Jolene, [facility] [place] [phone]- When:Within 3 Month(s) Comments:f/u labs, HTN, cirrhosis, vascular disease [facility] 08-23-2024 NotePatient Education Cardiovascular [...] these instructions at home: Medicines ? Take zasj-ash-ylqwjzb and prescription medicines only as told by [...] tobacco. These products incl (more content not included)...[facility] Instructions * Pre-Procedure Instructions - Marlin Tierney RN - 04/21/2024 2:45 PM EDT Your surgery/procedure is scheduled at [facility] on 04/26/2024 at 10:45 Arrival Time 8:45 [facility] Address: [address] [place] [address]. [place] [address] Park in Parking lot located on [facility]. Report to the Entrance B. Check in at the information desk the surgery. The waiting room located on the second floor. If you have any questions prior to surgery, please call Pre-Admission Clinic at [phone] between 7:30 am and 4:30 pm Thursday through Thursday. If you have questions the morning of surgery, please call the Pre-op Department at [phone]. Notify your SURGEON if you develop any [...] piercings ,hair extensions that contain metal, nail english, make-up, and contact lens. You may brush [...] RIGHTS AND RESPONSIBILITIES As a patient at [facility], you have the right to: Receive medical care and be informed of who is taking care of you Be treated with dignity and respect Have a family member/sales solutions representative of choice and your physician notified of your admission Receive information and actively participate in decisions about your care and treatment Refuse care, treatment and services Decide who may provide your support and speak for you Access advent and spiritual services Participate in ethical issues [...] hospital charges and payment methods Patient/patient sales solutions representative responsibilities are to: Provide information about [...] and report for surgery in clean clothes. [facility]08-15-2024 Miscellaneous Notes* Pre-Procedure Instructions - Marlin Tierney RN - 04/21/2024 2:45 PM EDT Your surgery/procedure is scheduled at [facility] on 04/26/2024 at 10:45 Arrival Time 8:45 [facility] Address: [address] [place] [address] in P1 Parking lot located on [facility]. Report to the Entrance B. Check in at the information desk the surgery. The waiting room located on the second floor. If you have any questions prior to surgery, please call Pre-Admission Clinic at [phone] between 7:30 am and 4:30 pm Thursday through Thursday. If you have questions the morning of surgery, please call the Pre-op Department at [phone]. Notify your SURGEON if you develop any [...] piercings ,hair extensions that contain metal, nail english, make-up, and contact lens. You may brush [...] RIGHTS AND RESPONSIBILITIES As a patient at [facility], you have the right to: Receive medical care and be informed of who is taking care of you Be treated with dignity and respect Have a family member/sales solutions representative of choice and your physician notified of your admission Receive information and actively participate in decisions about your care and treatment Refuse care, treatment and services Decide who may provide your support and speak for you Access advent and spiritual services Participate in ethical issues [...] hospital charges and payment methods Patient/patient sales solutions representative responsibilities are to: Provide information about [...] surgery in clean clothes. [facility] Evaluation + Plan note* Assessment & Plan Note - Radha Bertrand MD - 04/14/2024 9:26 AM EDT Associated Problem(s): AVM (arteriovenous malformation) RLE angio, possible intervention [facility] Miscellaneous Notes* Assessment & Plan Note - Radha Bertrand MD - 04/14/2024 9:26 AM EDTAssociated Problem(s): AVM (arteriovenous malformation) RLE angio, possible intervention documented in this encounterC[facility] History of Present illness Narrative* Radha [...] phase. There is no clear arteriovenous fistula. Demian sosa seems like arteriovenous malformation. I discussed with [...] Resource Strain: High Risk (02/27/2023) Received from [employer] Overall Financial Resource Strain (CARDIA) Difficulty of Paying Living Expenses: Very hard Food Insecurity: No Food Insecurity (04/14/2024) Hunger Screening Food Insecurity - Worry: Never True Food Insecurity - Inability: Never True Transportation Needs: No Transportation Needs (02/27/2023) Received from [facility] PRAPARE - Transportation Lack of Transportation (Medical): No Lack of Transportation (Non-Medical): No Physical Activity: Sufficiently Active (02/27/2023) Received from [employer] Exercise Vital Sign Days of Exercise per Week: 7 days Minutes of Exercise per Session: 120 min Stress: Stress Concern Present (02/27/2023) Received from [employer] [place] of Occupational Health - Occupational Stress Questionnaire Feeling of Stress : Very much Social Connections: Socially Isolated (02/27/2023) Received from [employer] Social Connection and Isolation Panel [NHANES] Frequency of Communication with Friends and Family: More than three times a week Frequency of Social Gatherings with Friends and Family: Patient declined Attends Alevism Services: Never Active Member of Clubs or Organizations: No Attends Club or Organization Meetings: Never Marital Status: Never Interpersonal Safety: Not At Risk (02/27/2023) Received from [employer] Humiliation, Afraid, Rape, and Kick questionnaire Fear of Current or Ex-Partner: No Emotionally Abused: No Physically Abused: No Sexually Abused: No Housing Instability: High Risk (02/27/2023) Received from [employer] Housing Stability Vital Sign Unable to Pay [...] Radha Bertrand MD, HÉCTOR, RPVI, FSVS, FACS [facility] [facility] This note was created with the assistance of a speech recognition program. While intending to generate a timely document that accurately reflects the content of the visit, no guarantee can be provided that every grammatical or spelling mistake has been or will be identified or corrected. Thank you for your understanding. documented in this encounterC[facility] NoteOncology Progress Note Chief Complaint Follow [...] anemia per outside records previously seen at [facility] hematology by Dr. Tanvir Black, last visit [...] Contact Information Janet HUERTA, Ella Polk, ONC [facility] [address] (more content not included)...[facility]06-24-[facility] NoteOncology Progress Note Chief Complaint New pt here for Iron deficiency, Pt states that he seen a Hem doctor in [place] about a [address] Mayuri [...] anemia per outside records previously seen at [facility] hematology by Dr. Tanvir Jaramillo Anna Black, [...] smear, haptoglobin, basil, ld (more content not included)...[facility] Hospital Discharge instructions Follow Up Care 02/25/2024 10:04:03 With:Ella Barahona, ONC Address: [address] [address] [phone] When: Unknown Comments:start folic acid 1mg daily- send to Kang, cmp, ldh, reticulocytes, haptoglobin in 1mofollow-up with Dr. Lees in 1mo [facility]05-31-2024 Hospital Discharge instructions Follow Up Care 02/05/2024 13:11:28 With:Ella Barahona, ONC Address: [facility] [address] [place] [address] [phone] When: Unknown Comments:get records from [facility] hematologyfollow-up in 2-3 weekswill get labs prior to visit [facility]05-22-2024 Hospital Discharge instructions Patient Education 01/27/2024 [...] Follow these instructions at home: Medicines Take piio-cye-zvdixkz and prescription medicines only as told by [...] more information Society for Vascular Surgery: vascular.org [place] Heart Association: heart.org National Heart, Lung, and Blood [place]: nhlbi.nih.gov Contact a health care provider if: [...] provider. Document Revised: 02/25/2021 Document Reviewed: 02/25/2021 [employer] Patient Education 2022 [employer]. 01/27/2024 11:32:41 Iron Deficiency Anemia, Adult Iron [...] supplement. 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 Surgery or additional testing procedures to determine the cause of your anemia. You may need repeat blood tests to determine whether treatment is working. If the treatment does not seem to be working, you may need more tests. Follow these instructions at home: Medicines Take bmut-rth-fzmrxhf and prescription medicines only as told by [...] to keep your urine pale yellow. Take yrui-vcq-ftwldbj or prescription medicines. Eat foods that are [...] the cause of your iron deficiency. Take nlqg-acr-htrhcug and prescription medicines only as told by [...] provider. Document Revised: 10/01/2022 Document Reviewed: 10/01/2022 [employer] Patient Education 2022 [employer] 01/27/2024 11:32:38 Peripheral Edema Peripheral Edema Peripheral [...] by your health care provider. Medicines Take wfzm-aga-doawxrg and prescription medicines only as told by [...] provider. Document Revised: 04/28/2022 Document Reviewed: 04/28/2022 [employer] Patient Education 2022 [employer]. 01/27/2024 11:32:35 Thrombocytopenia Thrombocytopenia Thrombocytopenia is a [...] Follow these instructions at home: Medicines Take vwns-vvy-gzaflhj and prescription medicines only as told by [...] provider. Document Revised: 02/06/2022 Document Reviewed: 02/06/2022 [employer] Patient Education 2022 [employer]. 01/27/2024 11:32:32 Esophageal Varices Esophageal Varices Esophageal [...] Follow these instructions at home: Medicines Take ebkl-xoi-vgxwkzm and prescription medicines only as told by [...] provider. Document Revised: 12/11/2020 Document Reviewed: 12/11/2020 [employer] Patient Education 2022 [employer]. 01/27/2024 11:32:31 Cirrhosis Cirrhosis Cirrhosis is long-term [...] provider before taking any new medicines, including ttds-ilv-wllslts medicines such as NSAIDs. Rest as needed. [...] provider. Document Revised: 06/06/2021 Document Reviewed: 06/06/2021 [employer] Patient Education 2022 [employer]. 01/27/2024 11:32:30 Alcoholic Liver Disease Alcoholic Liver [...] can provide emotional support and guidance. Take pkwu-vvu-uickpki and prescription medicines only as told by [...] provider. Document Revised: 06/06/2021 Document Reviewed: 06/06/2021 [employer] Patient Education 2022 [employer]. 01/27/2024 11:32:27 DASH Eating Plan DASH Eating [...] Dairy Whole or 2% milk, cream, and pnjp-qtr-odah. Whole or full-fat cream cheese. Whole-fat or [...] more information National Heart, Lung, and Blood [place]: www.nhlbi.nih.gov [place] Heart Association: www.heart.org Academy of Nutrition and [...] provider. Document Revised: 07/27/2020 Document Reviewed: 07/27/2020 [employer] Patient Education 2022 [employer]. Follow Up Care 10/28/2023 11:01:13 With:Loreta Padilla [facility], [facility] Address: [address] [place] [address]- When:Within 3 Month(s) Comments:f/u labs, HTN, cirrhosis, gallstones, thrombocytopenia [facility] 04-24-2024 NoteHNO ID: [id number] Author: MARGARET ZUÑIGA MD Service: ? Author Type: Physician Type: Progress Notes Filed: 12/30/2023 16:58 Note Text: PROGRESS NOTES PATIENT NAME: Will Ralph Assessment ASSESSMENT AND PLAN The patient is a 37-year-old male with a known history of alcoholic cirrhosis and portal hypertension. He presents with abdominal pain and abnormal labs from [facility]. These values are visible in Care [...] the option of seeing HPB surgery at [facility] as this would be the [...] gallstones. Blood work was also performed through [facility] along with the CT scan. His liver function tests were elevated along with his INR and bilirubin aware of his baseline laboratory values. He does see a crm technical lead and is being treated for liver failure. [...] naloxone 4 mg/actuation nasal spray (NARCAN) 1 [place] by nasal (alternating) route. oxyCODONE ir (OXYIR) [...] recent labs and imaging results. Margaret Zuñiga [facility]04-24-2024 History of Present illness Narrative* Margaret Zuñiga MD - 12/30/2023 4:50 PM EDT PROGRESS NOTES PATIENT NAME: Will Ralph Assessment ASSESSMENT AND PLAN The patient is a 37-year-old male with a known history of alcoholic cirrhosis and portal hypertension. He presents with abdominal pain and abnormal labs from [facility]. These values are visible in Care [...] gallstones. Blood work was also performed through [facility] along with the CT scan. His liver function tests were elevated along with his INR and bilirubin aware of his baseline laboratory values. He does see a crm technical lead and is beingtreated for liver failure. He [...] naloxone 4 mg/actuation nasal spray (NARCAN) 1 [place] by nasal (alternating) route. oxyCODONE ir (OXYIR) [...] results. Margaret Zuñiga MD documented in [facility] encounter[facility] Discharge instructions Patient Education 12/23/2023 [...] dietitian for more information. General instructions Take aphr-wuy-aukihzx and prescription medicines only as told by [...] provider. Document Revised: 05/30/2022 Document Reviewed: 05/30/2022 [employer] Patient Education 2022 [employer]. 12/23/2023 12:42:19 Preventing Vitamin D Deficiency Preventing [...] such as almond, soy, or oat milks. ?[place] juice. ?Margarine. When choosing foods, check the [...] including vitamins, herbs, eye drops, creams, and iojh-fiu-rqnzcgl medicines. Take vltu-bdj-jmjaxmm and prescription medicines only as told by [...] provider. Document Revised: 05/30/2022 Document Reviewed: 05/30/2022 [employer] Patient Education 2022 [employer]. 12/23/2023 12:42:17 Nausea, Adult Nausea, Adult Nausea [...] water added (diluted fruit juice). Eat bland, euga-yi-jmtqzg foods in small amounts as you are able. These foods include bananas, applesauce, rice, lean meats, toast, and crackers. Avoid drinking fluids that contain a lot of sugar or caffeine, such as energy drinks, sports drinks, and soda. Avoid alcohol. Avoid spicy or fatty foods. General instructions Take jbgk-fkj-yuldxug and prescription medicines only as told by your health care provider. Rest at home while you recover. Drink enough fluid to keep your urine pale yellow. Breathe slowly and deeply when you feel nauseous. Avoid smelling things that have strong odors. Wash your hands often using soap and water for at least 20 seconds. If soap and water are not available, use hand doll eye setter. Make sure that everyone in your household [...] recommendations for eating and drinking and take qbcu-scn-zqgdxhz and prescription medicinesonly as told by your [...] provider. Document Revised: 02/28/2022 Document Reviewed: 02/28/2022 [employer] Patient Education 2022 [employer]. 12/23/2023 12:42:14 Cellulitis, Adult Cellulitis, Adult Cellulitis [...] Follow these instructions at home: Medicines Take kmjo-fed-kltyqtt and prescription medicines only as told by [...] such as antibiotic medicines or antihistamines. Take sjuw-wpz-ydqqpwu and prescription medicines only as told by [...] provider. Document Revised: 06/04/2022 Document Reviewed: 06/05/2022 [employer] Patient Education 2022 [employer] 12/23/2023 12:42:12 Esophageal Variceal Ligation Esophageal [...] including vitamins, herbs, eye drops, creams, and wwxu-kzg-hrwakgn medicines. Any problems you or family members [...] provider tells you to take them. Taking boos-zfa-bawngoj medicines, vitamins, herbs, and supplements. General information [...] provider. Document Revised: 12/11/2020 Document Reviewed: 12/11/2020 Elsevier Patient Education 2022 [employer]. 12/23/2023 12:42:09 Nausea and Vomiting, Adult Nausea [...] water added (diluted fruit juice). Eat bland, lkvt-nj-njbnyo foods in small amounts as you are able. These foods include bananas, applesauce, rice, lean meats, toast, and crackers. Avoid fluids that contain a lot of sugar or caffeine, such as energy drinks, sports drinks, and soda. Avoid alcohol. Avoid spicy or fatty foods. General instructions Take tohk-rbb-stwfzhh and prescription medicines only as told by your health care provider. Drink enough fluid to keep your urine pale yellow. Wash your hands often using soap and water for at least 20 seconds. If soap and water are not available, use hand doll eye setter. Make sure that everyone in your household [...] eating and drinking to prevent dehydration. Take mlqc-flp-vrrtrql and prescription medicines only as told by [...] provider. Document Revised: 02/28/2022 Document Reviewed: 02/28/2022 [employer] Patient Education 2022 [employer]. 12/23/2023 12:22:45 Gallbladder Eating Plan Gallbladder Eating [...] food, fatty cuts of meat, ice cream, solomon islander toast, sweet rolls, pizza, cheese bread, foods covered with butter, creamy sauces, or cheese. Fried foods. These include [place] islander fries, tempura, battered fish, breaded chicken, fried [...] provider. Document Revised: 08/08/2022 Document Reviewed: 08/08/2022 [employer] Patient Education 2022 [employer]. 12/23/2023 12:22:34 Cholecystitis Cholecystitis Cholecystitis is inflammation [...] Follow these instructions at home: Medicines Take hpnm-xoj-lgwszjn and prescription medicines only as told by [...] provider. Document Revised: 02/25/2022 Document Reviewed: 02/25/2022 [employer] Patient Education 2022 [employer]. 12/23/2023 12:22:32 Cholelithiasis Cholelithiasis Cholelithiasis is a [...] Follow these instructions at home: Medicines Take jwqd-rwp-lxnbtvl and prescription medicines only as told by [...] important. Where to find more information National [place] of Diabetes and Digestive and Kidney Diseases: [...] provider. Document Revised: 07/16/2020 Document Reviewed: 07/16/2020 [employer] Patient Education 2022 [employer]. Follow Up Care 12/14/2023 11:01:47 With:Loreta Padilla FAM, MED Address: [address], [facility] [address] [place] [phone]- When:Within 1 Month(s) Comments:f/u abd pain, gall stone, cirrhosis, thrombocytopenia, fatigue [facility] 04-07-2024 Evaluation + Plan noteExtracted from:Title: Discharge NoteAuthor:Lui Mena MD:12/13/23 Stable Discharge To, Anticipated II - Home [...] Oral, q6hr, PRN, Not taking Potassium Chloride (Zbp-Zywp-Jkh M20) 20 mEq oral tablet, extended release, [...] Information Loreta Cummings In 0 days [address], [address] [employer] [place] [phone]- Business (1) Additional Instructions: Extracted from:Title:Admission H & PAuthor:Lui Mena MD:12/11/23 38 y/o M admited for contras t [...] DVT PPX: SCD Plan: As above Extracted from:Title:ED NoteAuthor:Brent Sanches DODate:12/11/23 Intractable back pain (M54.9 : Dorsalgia, unspecified) [...] Stop date 12/11/23 9:17:00 EDT, STAT, Start date12/11/23 9:17:00 EDT, 12/11/23 9:17:00 EDT ondansetron, 4 [...] Future Appointments Appointment Date:01/27/2024 09:40:00 AM Scheduled Provider:Jhon ALBERTS, Loreta Zuniga Location:[facility] Appointment Type:FM Open Appointment Date:05/12/2024 03:15:00 PM Scheduled Provider:Carrol MULTANI, Mario Xiong Location:[facility] Appointment Type:BADH Follow Up Future Scheduled Tests Laboratory* HgbA1c 07/24/23 * Pvsen-4-Vakznqgghmu 09/01/23 * Ceruloplasmin 09/01/23 * Antimitochondrial Antibody, [...] Acid 07/24/23 * Vitamin B12 Level 07/24/23 [facility]04-07-2024 Hospital Discharge instructions Patient Education 12/13/2023 10:04:57 Drug Allergy, Xllv-bb-Dbpb Drug Allergy A drug allergy is when [...] medicines that you are allergic to. Take mffj-twd-zehyiin and prescription medicines only as told by your doctor. If you were given allergy medicines, do not drive until your health care provider tells you it is safe. If you have hives or a rash: ?Use jyvo-low-cgnrqml medicines as told by your doctor. ?Put [...] provider. Document Revised: 02/03/2022 Document Reviewed: 02/03/2022 [employer] Patient Education 2022 [employer] 12/13/2023 10:04:49 Chronic Back Pain Chronic Back [...] pull them backward. 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 [...] prescription pain medicine, or muscle relaxants. Take npbm-zwi-qkitvzu and prescription medicines onlyas told by your health care provider. Ask your health care provider if the medicine prescribed to you: ?Requires you to avoid driving or using machinery. ?Can cause constipation. You may need to take these actions to prevent or treat constipation: ?Drink enough fluid to keep your urine pale yellow. ?Take kwoz-lwh-uomgorv or prescription medicines. ?Eat foods that are [...] provider. Document Revised: 10/03/2020 Document Reviewed: 10/03/2020 [employer] Patient Education 2022 [employer]. 12/13/2023 10:04:40 Cirrhosis Cirrhosis Cirrhosis is long-term [...] provider before taking any new medicines, including namt-ayo-gmrenky medicines such as NSAIDs. Rest as needed. [...] provider. Document Revised: 06/06/2021 Document Reviewed: 06/06/2021 [employer] Patient Education 2022 [employer]. Follow Up Care 12/11/2023 09:05:25 With:Loreta Cummings Address: [address] [place], [place] [phone] Business (1) When: Unknown [facility]04-07-2024 NoteAdmission and Discharge Information Admitting Physician - Rajesh MULTANI, Desi Admitting Diagnoses: Discharge Order Date Discharge Patient [...] Oral, q6hr, PRN, Not taking Potassium Chloride (Lwb-Gsty-Yij M20) 20 mEq oral tablet, extended release, [...] Information Loreta Cummings In 0 days [address], [address] [employer] [address] [place], [place] [email or web address] (1) Additional Instructions:[facility]:Result Comment: Electronically Signed By: Rajesh MULTANI, Desi\.br\Date and Time Signed: 12/13/23 07:52 [id number] Hospital Discharge instructions Patient Education 11/11/2023 16:42:11 Endoscopy, Care After Procedure [facility] Endoscopy Care After Procedure Please read the instructions outlined below and refer to this sheet in the next few weeks. These discharge instructions provide you with general information on caring [facility] Your doctor may also give you [...] blood. Document Released: 04/07/2005 Document Re-Released: 02/15/2007 [employer] Patient Information [employer]. 11/11/2023 16:42:11 Esophageal Varices Esophageal Varices Esophageal [...] Follow these instructions at home: Medicines Take fixf-csl-oshtfxz and prescription medicines only as told by [...] provider. Document Revised: 12/11/2020 Document Reviewed: 12/11/2020 [employer] Patient Education 2022 [employer]. Follow Up Care 10/09/2023 11:37:06 With:Carrol MULTANI, Mario Xiong [facility], [facility] Address: [address], [address] [facility] [address] [place] [phone] When: Unknown Comments:Office will call to schedule follow up appointment and/or review any pending biopsy resultsCall forany problems. [facility]02-21-2024 Hospital Discharge instructions Patient Education 10/28/2023 [...] of hard liquor (44 mL). Medicines Take mhdp-sgr-ulffeou and prescription medicines only as told by [...] Centers for Disease Control and Prevention: www.cdc.gov/heartdisease [place] Heart Association: www.heart.org Summary Heart disease is [...] provider. Document Revised: 04/23/2022 Document Reviewed: 04/23/2022 [employer] Patient Education 2022 [employer]. 10/28/2023 15:32:24 Form - Blood Pressure Record [...] provider. Document Revised: 05/08/2022 Document Reviewed: 05/08/2022 [employer] Patient Education 2022 [employer] 10/28/2023 15:32:23 DASH Eating Plan DASH Eating [...] Dairy Whole or 2% milk, cream, and grdb-azl-uhde. Whole or full-fat cream cheese. Whole-fat or [...] more information National Heart, Lung, and Blood [place]: www.nhlbi.nih.gov [place] Heart Association: www.heart.org Academy of Nutrition and [...] provider. Document Revised: 07/27/2020 Document Reviewed: 07/27/2020 [employer] Patient Education 2022 [employer]. 10/28/2023 15:32:21 Hypertension, Adult Hypertension, Adult High [...] follow-up visits. This is important. Medicines Take ygpb-hka-ptzmxcq and prescription medicines only as told by [...] provider. Document Revised: 07/01/2022 Document Reviewed: 07/01/2022 [employer] Patient Education 2022 [employer]. 10/28/2023 15:32:19 Alcoholic Liver Disease Alcoholic Liver [...] can provide emotional support and guidance. Take dzha-uqg-vzjyrfz and prescription medicines only as told by [...] provider. Document Revised: 06/06/2021 Document Reviewed: 06/06/2021 [employer] Patient Education 2022 [employer]. 10/28/2023 15:32:16 Thrombocytopenia Thrombocytopenia Thrombocytopenia is a [...] Follow these instructions at home: Medicines Take upqi-jee-utzvglm and prescription medicines only as told by [...] provider. Document Revised: 02/06/2022 Document Reviewed: 02/06/2022 [employer] Patient Education 2022 [employer]. 10/28/2023 15:32:14 Varicose Veins Varicose Veins Varicose [...] Follow these instructions at home: Medicines Take kfvw-org-fkoertb and prescription medicines only as told by [...] provider. Document Revised: 02/05/2022 Document Reviewed: 02/05/2022 [employer] Patient Education 2022 [employer]. 10/28/2023 15:32:09 Nausea, Adult Nausea, Adult Nausea [...] water added (diluted fruit juice). Eat bland, wuwb-nm-lnobak foods in small amounts as you are able. These foods include bananas, applesauce, rice, lean meats, toast, and crackers. Avoid drinking fluids that contain a lot of sugar or caffeine, such as energy drinks, sports drinks, and soda. Avoid alcohol. Avoid spicy or fatty foods. General instructions Take dgmv-voh-yogtlpf and prescription medicines only as told by your health care provider. Rest at home while you recover. Drink enough fluid to keep your urine pale yellow. Breathe slowly and deeply when you feel nauseous. Avoid smelling things that have strong odors. Wash your hands often using soap and water for at least 20 seconds. If soap and water are not available, use hand doll eye setter. Make sure that everyone in your household [...] recommendations for eating and drinking and take zonx-koc-hmkizmx and prescription medicinesonly as told by your [...] provider. Document Revised: 02/28/2022 Document Reviewed: 02/28/2022 [employer] Patient Education 2022 [employer]. [facility] 01-15-2024 Hospital Discharge instructions Follow Up Care 09/21/2023 12:59:46 With:Loreta Padilla FAM, [facility] Address: [address], [facility] [address] [address] [address]- When: Unknown [facility] 12-20-2023 Hospital Discharge instructions [...] products, such as yogurt. General instructions Take loxl-xic-ajfomys and prescription medicines only as told by [...] provider. Document Revised: 05/08/2022 Document Reviewed: 05/08/2022 [employer] Patient Education 2022 [employer]. 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 How is this treated? This condition [...] detergents, or perfumes. Medicines Take or use guxc-eht-tclindg and prescription medicines only as told by [...] provider. Document Revised: 11/04/2021 Document Reviewed: 11/04/2021 [employer] Patient Education 2022 [employer]. 08/26/2023 11:02:52 Alcoholic Liver Disease Alcoholic Liver [...] can provide emotional support and guidance. Take rpqh-puc-rxaghux and prescription medicines only as told by [...] provider. Document Revised: 06/06/2021 Document Reviewed: 06/06/2021 [employer] Patient Education 2022 [employer]. 08/26/2023 10:41:25 Incision and Drainage Incision and [...] including vitamins, herbs, eye drops, creams, and jevm-ysu-ihilgtg medicines. Any problems you or family members [...] provider tells you to take them. Taking nfau-ujk-gmujsfh medicines, vitamins, herbs, and supplements. Tests You [...] provider. Document Revised: 11/27/2022 Document Reviewed: 06/05/2022 [employer] Patient Education 2022 [employer]. 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 How is this treated? This condition [...] detergents, or perfumes. Medicines Take or use ityv-hfi-jnxhntl and prescription medicines only as told by [...] provider. Document Revised: 11/04/2021 Document Reviewed: 11/04/2021 [employer] Patient Education 2022 [employer]. 08/26/2023 10:41:14 Hypokalemia Hypokalemia Hypokalemia means that [...] products, such as yogurt. General instructions Take vyja-cav-vdbscui and prescription medicines only as told by [...] provider. Document Revised: 05/08/2022 Document Reviewed: 05/08/2022 [employer] Patient Education 2022 [employer]. Follow Up Care 07/24/2023 09:02:18 With:Loreta Padilla FAM, MED Address: [address] [place] [address] Business (1) When:Within 2 Month(s) Comments:3 mo f/u for ulcers, liver disease, labs [facility] 11-17-2023 Hospital Discharge instructions [...] provider before taking any new medicines, including aimn-mem-gxpwqaw medicines such as NSAIDs. Rest as needed. [...] provider. Document Revised: 06/06/2021 Document Reviewed: 06/06/2021 [employer] Patient Education 2022 [employer]. 07/24/2023 09:14:01 Heart Disease Prevention Heart Disease [...] of hard liquor (44 mL). Medicines Take zagg-blk-rxogchx and prescription medicines only as told by [...] Centers for Disease Control and Prevention: www.cdc.gov/heartdisease [place] [employer]: www.heart.org Summary Heart disease is [...] provider. Document Revised: 04/23/2022 Document Reviewed: 04/23/2022 [employer] Patient Education 2022 [employer] 07/24/2023 09:13:57 Anemia Anemia Anemia is a [...] spleen. Follow these instructions at home: Take cmsf-gve-hloukun and prescription medicines only as told by [...] provider. Document Revised: 07/08/2022 Document Reviewed: 07/31/2020 [employer] Patient Education 2022 [employer]. 07/24/2023 09:13:53 Hypokalemia Hypokalemia Hypokalemia means that [...] products, such as yogurt. General instructions Take blto-hxp-hdlewgr and prescription medicines only as told by [...] provider. Document Revised: 05/08/2022 Document Reviewed: 05/08/2022 [employer] Patient Education 2022 [employer]. 07/24/2023 09:13:45 Thrombocytopenia Thrombocytopenia Thrombocytopenia is a [...] Follow these instructions at home: Medicines Take uwgj-ztb-oixmoxf and prescription medicines only as told by [...] provider. Document Revised: 02/06/2022 Document Reviewed: 02/06/2022 [employer] Patient Education 2022 [employer]. [facility] 10-13-2023 Hospital Discharge instructions Patient Education 06/19/2023 13:28:07 Insect Bite, Adult, Fcwk-cu-Siaf Insect Bite, Adult An insect bite can [...] of an anaphylactic reaction may include: Feeling director of preclinical research the face (flushed). Your face may turn [...] a day. General instructions Apply or take dlwk-xzl-wkdkzcx and prescription medicines only as told by [...] ?DEET. ?Picaridin. ?Oil of lemon eucalyptus (OLE). ?[id number]. Consider spraying your clothing with a pesticide [...] an anaphylactic reaction. Signs may include: ?Feeling director of preclinical research the face. ?Itchy, red, swollen areas of [...] provider. Document Revised: 05/26/2022 Document Reviewed: 05/26/2022 [employer] Patient Education 2022 [employer]. Follow Up Care 06/19/2023 12:16:43 With:Colby Link Address: [address] Fern[address], [address] [place] [address]- Business (1) When:06/22/2023 12:39:51 Comments:Follow-up with your primary care provider in 3 to 5 days. If symptoms worsen, do not improve, or new symptoms arise please report back to emergency department for further evaluation. [facility]08-18-2023 Evaluation note* Encounter Date Diagnosis Assessment Notes Treatment Notes Treatment Clinical Notes Apr, Non-healing wound of right lower extremity (ICD-10 - S81.801A) Apr,OtherRight leg swelling and delayed healing of the [...] hopefully he will continue to improve with regardsto his lower extremity edema. I will plan to see him back in August for follow-up and he knows that he can call sooner should he deteriorate in any way pinion-pins Other 08-15-2023 History of Present illness Narrative* [...] well. Monie Hernandez RN documented in this [id number] History of Present illness Narrative* Gustabo Ritchie [...] 100 %. Gustabo Pittman documented in this [id number] Hospital Discharge instructions Patient Education 03/22/2023 21:57:13 [...] Follow these instructions at home: Medicines Take wetb-opq-qixkzxr and prescription medicines only as told by [...] such as antibiotic medicines or antihistamines. Take lmeh-ull-wibybyw and prescription medicines only as told by [...] provider. Document Revised: 06/05/2022 Document Reviewed: 06/05/2022 [employer] Patient Education 2022 [employer]. Follow Up Care 03/22/2023 19:36:11 With:THEO BURKS Address:Unknown When:Within 3 Day(s) [facility]07-16-2023 Evaluation + Plan noteExtracted from: Title:ED NoteAuthor:Martin Reese DODate:03/22/23 Cellulitis (L03.90: Cellulit is, unspecified) Orders: ondansetron, 4 mg = 1 tab(s), Oral, q8hr, PRN Nausea/Vomiting, # 20 tab(s), Refills(s) 0, Pharmacy:[facility] #[id number], 170, cm, 03/22/23 20:14:00 EDT, Height/Length Dosing, [...] mL, Soln-IV, IV, Once, Stop date 03/22/23 20:19:00EDT, STAT, Start date 03/22/23 20:19:00 EDT, Infuse over 61, minute(s) sulfamethoxazole-trimethoprim, 1 tab(s), Oral, BID for 14 day(s), 28 tab(s), Refill(s) 0, [id number], 170, cm, 03/22/23 20:14:00 EDT, Height/Length Dosing, [...] Charcoal 03/22/23 * Blood Culture Charcoal 03/22/23 [facility]06-30-2023 Telephone encounter Note* Telephone Encounter - Deborah Gutierrez CPhT - 03/06/2023 8:55 AM EDT A prior authorization has been started for Lidocaine 5% patch PA status can be found under the prescription order in the Medication Tab. History or status of the PA can also be found in Chart Review under Referral tab. [id number] Miscellaneous Notes* Telephone Encounter - Deborah Gutierrez CPhT - 03/06/2023 8:55 AM EDT A prior authorization has been started for Lidocaine 5% patch PA status can be found under the prescription order in the Medication Tab. History or status of the PA can also be found in Chart Review under Referral tab. documented in this [id number] Telephone encounter Note* Telephone Encounter - Nighat Mahmood APRN-CNP - 02/27/2023 5:05 PM EDT Pt had video visit scheduled. Link sent to him, but he never checked in. [facility] Work Phone: [phone]) 864-569506-23-2023 Miscellaneous Notes* Telephone Encounter - Nighat Mahmood [...] Recommendation: n/a Thank you documented in this [id number] Telephone encounter Note* Telephone Encounter - Jordana Stanton RN - 02/27/2023 2:55 PM EDT Called the patient Reminded him of his video visit this ThursdayMarch 03 with Lindsey Mahmood Pt concerned about his leg, he will send a picture to My Chart To his provider Concerned about his infection Notified Lindsey Mahmood [facility] Phone: [phone]) 814-613406-23-2023 Telephone encounter Note* Telephone Encounter - Tobi Bowen - 02/27/2023 2:36 PM EDT What is the need: call back Situation: Pt states that the doctors office called him stating that they were running behind but he never got a phone call. Please advise Background: Please contact and advise Assessment: Pt contact info is Phone numbers Recommendation: n/a Thank you [id number] Evaluation + Plan noteExtracted from:Title:ED NoteAuthor: Omid PARKER, Xander Friedman.Date:6/14/23 Cellulitis of right leg (L03 .115: Cellulitis of right lower limb) Right leg pain (M79.604: Pain in right leg) Orders: clindamycin, 300 mg = 1 cap(s), Oral, q6hr, X 7 day(s), # 28 cap(s), Refills(s) 0, Pharmacy: [facility] #[id number], 170, cm, 02/18/23 7:51:00 EDT, Height/Length Dosing, 77, kg, 02/18/23 7:51:00 EDT, WeightDosing ibuprofen, 800 mg = 1 tab(s), Tab, [...] day(s), # 15 cap(s), Refills(s) 0, Pharmacy: [facility] #[id number], 170, cm, 02/18/23 7:51:00 EDT, Height/Length Dosing, 77, kg, 02/18/23 7:51:00 EDT, Weight Dosing US LE Venous Duplex Right [facility]06-14-2023 Hospital Discharge instructions Patient Education 02/18/2023 09:31:38 RICE Therapy for Routine Care of Injuries, Hllz-ct-Rlpd RICE Therapy for Routine Care of Injuries [...] provider. Document Revised: 06/13/2021 Document Reviewed: 06/13/2021 [employer] Patient Education 2022 [employer]. 02/18/2023 09:31:38 Musculoskeletal Pain Musculoskeletal Pain Musculoskeletal [...] by mouth or applied to theskin. Take dtxa-hck-jqgowfh and prescription medicines only as told by [...] provider. Document Revised: 12/27/2020 Document Reviewed: 12/05/2020 [employer] Patient Education 2022 [employer] 02/18/2023 09:31:38 Pain Without a Known Cause [...] Follow these instructions at home: Medicines Take gavt-qrk-lxgfkrc and prescription medicines only as told by your health care provider. Ask your health care provider if the medicine prescribed to you: ?Requires you to avoid driving or using machinery. ?Can cause constipation. You may need to take these actions to prevent or treat constipation: ? Drink enough fluid to keep your urine pale yellow. ?Take edov-noc-vyxwjdq or prescription medicines. ?Eat foods that are [...] the National Suicide Prevention Lifeline at or 876. This is open 24 hours a day. Text the Crisis Text Line at 525958. Summary Pain can occur in any part [...] provider. Document Revised: 04/23/2022 Document Reviewed: 04/23/2022 [employer] Patient Education 2022 [employer]. 02/18/2023 09:31:38 Cellulitis, Adult, Nzah-iy-Vkok Cellulitis, Adult Cellulitis is a skin infection. [...] Follow these instructions at home: Medicines Take xuro-imo-wglaluc and prescription medicines only as told by [...] provider. Document Revised: 06/05/2022 Document Reviewed: 06/05/2022 [employer] Patient Education 2022 [employer] Follow Up Care 02/18/2023 07:42:07 With:THEO BURKS Address:Unknown When:02/21/2023 09:01:56 Comments:Follow-up with your primary care provider in 3 to 5 days. If symptoms worsen, do not improve, or new symptoms arise please report back to emergency department for further evaluation. [facility]05-16-2023 Surgery Postoperative evaluation and management note* Post-Procedure Note - Brayan Babin MD - 01/20/2023 10:23 AM EDT POST-PROCEDURE NOTE Procedure: Transjugular liver biopsy with pressure measurements Pre-operative Diagnosis: Cirrhosis, diagnostic evaluation Post-operative Diagnosis: Portal hypertension, cirrhosis Attending: Erica Rock MD Police Matron: Leon Hernadez MD (attending) Brayan Babin MD [...] Dose: 1 mg; Route: Intravenous Push Rich Rubalcava, IRENA 01/20/2023 10:03 AM Complications: None Specimens: N/A [...] of the procedure. Brayan Babin MD Radiology [facility] Work Phone: 1(885) 675-192005-16-2023 Miscellaneous Notes* Post-Procedure Note - Brayan Babin MD - 01/20/2023 10:23 AM EDT POST-PROCEDURE NOTE Procedure: Transjugular liver biopsy with pressure measurements Pre-operative Diagnosis: Cirrhosis, diagnostic evaluation Post-operative Diagnosis: Portal hypertension, cirrhosis Attending: Erica Rock MD Police Matron: Leon Hernadez MD (attending) Brayan Babin MD [...] mg; Route: Intravenous Rich Flores RN 01/20/2023 8:54 AM fentaNYL (SUBLIMAZE) 100 [...] B27 positive) 2003 Followed with Rheum at [facility] Open fracture of other and [...] Directives (Living will, health care power of energy attorney): none Patient Recent Code Status: Prior Code Status For This Procedure: Full Code Dorota Aj MD Radiology documented in this [id number] Surgery Preoperative evaluation and management note* Pre-Procedure [...] B27 positive) 2003 Followed with Rheum at [facility] Open fracture of other and [...] Directives (Living will, health care power of energy attorney): none Patient Recent Code Status: Prior Code Status For This Procedure: Full Code Dorota Aj [facility] Phone: [phone]) 593-886505-08-2023 History of Present illness Narrative* Meka Lucas RN - 01/12/2023 11:11 AM EDT Labs drawn peripherally from right forearm. documented in this [id number] History of Present illness Narrative* Gustabo Ritchie [...] 100 %. Gustabo Pittman documented in this [id number] History of Present illness Narrative* April Jewell - 01/12/2023 8:57 AM EDT Patient was identified by name and date of . Bennyangecarmelina Best Patient at risk for falls:No Falls Risk [...] Hepatology [facility] documented in this [id number] Instructions* Patient Instructions* Dejuan Lechuga MD - 12/16/2022 10:23 AM EDT [facility] Family Medicine [phone] [place] [address] Lab tests can be done at a scheduled visit, or by appointment. [facility] [phone] [place] [address] Park in the Outpatient [facility] (P9) Under the [facility]. Pathology is located in the Speciality Services [place] of the Outpatient [place] on the 2nd floor.Please fill out the paper form at the front line leader then have a seat in the Outpatient Blood Draw Lab (Pathology) waiting area. Hours Thursday 07:00 AM - 05:30 PM Thursday 07:00 AM - 05:30 PM Thursday 07:00 AM - 05:30 PM 07:00 AM - 05:30 PM Thursday 07:00 AM - 05:30 PM [facility] Lab [phone] [place] [address] Follow the overhead sign to [place]: Radiology/X-ray & Lab (right arrow). Check in for testing at the Radiology & Lab Supplier Relationship Director window. Hours Thursday 10:00 AM - 02:00 PM Thursday 08:00 AM - 07:30 PM Thursday 08:00 AM - 07:30 PM Thursday 08:00 AM - 07:30 PM 08:00 AM - 07:30 PM Thursday 08:00 AM - 07:30 PM Thursday 08:00 AM - 04:00 PM [facility] Lab [phone] [place] [address] [place] at the front line leader and you will be directed to the waiting area. Laboratory staff will takeyou back to the laboratory. Hours Thursday 10:00 AM - 02:00 PM Thursday 07:30 AM - 07:30 PM Thursday 07:30 AM - 07:30 PM Thursday 07:30 AM - 07:30 PM 07:30 AM - 07:30 PM Thursday 07:15 AM - 07:45 PM Thursday 08:00 AM - 04:00 PM [facility] Lab [phone] [place] [address] Enter through the front door and continue [...] PM Thursday 08:00 AM - 04:00 PM [facility] [phone] [place] [address] The [facility] is located on the first [...] Thursday 07:30 AM - 05:00 PM [facility] Lab [phone] [address] [facility] [address] The [place] [facility] is located on the first floor, room A1-2072. Enter through the Emergency doors and follow the signs to Medical Offices , making a right turn. [place] at the Registration 1A desk at the end of the hallway, then proceed to the Laboratory on the right. Hours Thursday 07:30 AM - 05:00 PM Thursday 07:30 AM - 05:00 PM Thursday 07:30 AM - 05:00 PM 07:30 AM - 05:00 PM Thursday 07:30 AM - 05:00 PM [facility] Lab [phone] [place] [address] The [place] [facility] is located on the first [...] AM - 05:00 PM documented in this [id number] History of Present illness Narrative* Dejuan Lechuga [...] no previous surgical history on file. Diagnostics: [facility] laboratory/diagnostics reviewed and Outside laboratory/diagnostics reviewed Review [...] of . Aleja Rolon documented in this [id number] History of Present illness Narrative* Theo Burks MD - 12/15/2022 4:20 PM EDT [facility] Telemedicine Visit CC: Chief Complaint Patient presents with Fall HPI: Patient is a 37 year old cordero with a history of cirrhosis , autoimmune hemolytic anemia who presentsfor the below. 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 OBJECTIVE: Sounds ewll, no acute distress Breathing comfrotably on room air ASSESSMENT AND PLAN: 1. Rib pain Orders & Meds Signed During This Encounter X-ray Ribs Left Unilateral (Routine) lidocaine (LIDODERM) 5 % patch Documentation: Mode: Telephone Patient Patient Work Phone: Patient Cell Preferred phone: [phone] Consent: I confirmed patient understanding of the [...] Burks MD Family Medicine documented in this [id number] Telephone encounter Note* Telephone Encounter - ОльгаAleja - 12/15/2022 9:14 AM EDT Called patient and made appointment with tomorrow [id number] Miscellaneous Notes* Telephone Encounter - Aleja Rolon - 12/15/2022 9:14 AM EDT Called patient and made appointment with tomorrow documented in this [id number] History of Present illness Narrative* Marcello Ibanez [...] Risk protocol implemented: No documented in this [id number] History of Present illness Narrative* Haley Gary [...] Gastroenterology & Hepatology [facility] * SchillingEze - 10/27/2022 9:49 AM EST Patient was identified by name and date of . Eze SchillingPatient at risk for falls:No Falls Risk protocol implemented: No documented in this [id number] History of Present illness Narrative* Haley Gary [...] Risk protocol implemented: No documented in this [id number] Telephone encounter Note* Telephone Encounter - Tanika [...] and will need rescheduled. Tanika Arias RN [facility] Work Phone: [phone]) 602-360401-14-2023 Miscellaneous Notes* Telephone Encounter - Tanika Arias [...] rescheduled. Tanika Arias RN documented in this [id number] History of Present illness Narrative* Theo Burks [...] surgical history personally reviewed and updated in [facility]. OBJECTIVE: There were no vitals taken for this visit. Gen: Sounds well, no acute distress Resp: breathing comfortably ASSESSMENT AND PLAN: 1. Cellulitis, unspecified cellulitis site 2. Muscle soreness Orders & Meds Signed During This Encounter Creatine Kinase Documentation: Mode: Telephone Patient Patient Work Phone: Patient Cell Preferred phone: [phone] Consent: I confirmed patient understanding of the [...] Burks MD Family Medicine documented in this [id number] Instructions* Patient Instructions* Theo Burks MD - 08/25/2022 2:16 PM EST Continue antibiotics for another 7 days Topical antibiotic ointment for left foot Follow up on Thursday Refilled zofran (anti-nausea medication) documented in this [id number] History of Present illness Narrative* Theo Burks MD - 08/25/2022 1:31 PM EST Images from the original note were not included. [facility] Medicine Family Medicine Office Visit CC: Chief [...] surgical history personally reviewed and updated in [facility]. OBJECTIVE: BP 132/65 (BP Location: [...] topical mupirocin. Labs drawn this AM at [facility]--will review. Gave strict return precautions. RTC Thursday as scheduled for wound check Theo Burks MD Family Medicine documented in this [id number] History of Present illness Narrative* Abbey Alvarez [...] hepatology clinic for EtOH cirrhosis. Admitted to [facility] ICU for acute alcoholic hepatitis (MDF [...] B27 positive) 2003 Followed with Rheum at [facility] Open fracture of other and [...] # Age-appropriate vaccinations: - Hep B series /, next to be given at f/u visit [...] Risk protocol implemented: No documented in this [id number] History of Present illness Narrative* Abbey Alvarez [...] hepatology clinic for EtOH cirrhosis. Admitted to [facility] ICU for acute alcoholic hepatitis (MDF [...] B27 positive) 2003 Followed with Rheum at [facility] Open fracture of other and [...] Risk protocol implemented: No documented in this [id number] History of Present illness Narrative* Abbey Alvarez [...] hepatology clinic for EtOH cirrhosis. Admitted to [facility] ICU for acute alcoholic hepatitis (MDF [...] B27 positive) 2003 Followed with Rheum at [facility] Open fracture of other and [...] Risk protocol implemented: No documented in this [id number] Note* Addendum Note - Tanvir Black MD - 08/21/2022 8:52 PM ESTAddended by: TANVIR BLACK on: 08/21/2022 08:52 PM Modules accepted: Orders [id number] Miscellaneous Notes* Addendum Note - Tanvir Black MD - 08/21/2022 8:52 PM ESTAddended by: TANVIR BLACK on: 08/21/2022 08:52 PM Modules accepted: Orders documented in this [id number] History of Present illness Narrative* Tanvir Black MD - 08/16/2022 11:07 AM EST Images from the original note were not included. Reviewed urine C&S. Urine growing klebsiella pneumoniae, with intermediate sensitivity to Macrobid. Culture Positive Culture Report Abnormal >100,000 CFU/ml Klebsiella pneumoniae Resulting Agency: [facility] Susceptibility Klebsiella pneumoniae BHAVIN Amoxicillin + [...] Phone numbers Preferred Tanvir Black MD Pgr [phone] Hematology/Oncology 08/16/2022 . documented in this [id number] Hospital Discharge instructions* Discharge Instructions* Danet French MD - 08/15/2022 3:08 PM EST EMERGENCY DEPARTMENT FOLLOW-UP: Please see your Primary Care Physician at next available appointment for follow up. Please call today or tomorrow to make an appointment. Residents of [facility] may apply for discounts available only to residents of [facility] by contacting the Eligibility Call Center at [phone]. If you do not have a primary physician please call [phone] for guidance on finding a [facility] provider. PLEASE NOTE: If you are followed [...] during this visit: None documented in this [id number] History of Present illness Narrative* Nenita Franco [...] B27 positive) 2003 Followed with Rheum at [facility] Open fracture of other and [...] of . Katie Paniagua documented in this [id number] History of Present illness Narrative* Tanvir Black [...] B27 positive) 2003 Followed with Rheum at [facility] Open fracture of other and [...] Time Provider Department Center 08/19/2022 8:30 AM [facility] OP ULTRASOUND 2 [facility]iolog 08/19/2022 1:45 PM [facility] OP ULTRASOUND 2 [facility] 08/28/2022 10:30 AM Saskia Madison APRN-CNP [facility] 09/19/2022 11:00 AM Saskia Madison APRN-CNP [facility] 11/13/2022 11:30 AM [facility]/13[facility] 12:[address] [facility] Tanvir Black MD Hematology/Oncology 08/14/22 4:09 PM * Jojo Garcia - 08/14/2022 11:52 AM EST .Patient was identified by name and date of . Jojo Garcia .Patient at risk for falls:No Falls Risk protocol implemented: No documented in this [id number] History of Present illness Narrative* Emily Dunn RN - 08/14/2022 2:08 PM EST During this visit the vaccine(s) was: Administered Obtained informed verbal consent from patient/parent/patient sales solutions representative for immunization(s) as ordered, questionnaire completed and VIS educational handouts reviewed with patient/parent/patient sales solutions representative who denies contraindications and verbalizes understanding of indication, potential side effect and actions to be taken if side effects occur. Double identification of patient completed with patient/parent/patient sales solutions representative using name and prior to administration, and patient tolerated immunization(s) administration without incident. * Maura Canela - 08/14/2022 1:08 PM EST Patient was identified by name and date of . Maura WilhelmoPatient at risk for falls:No Falls Risk protocol implemented: No * Saskia Madison, TUMBLING MACHINE OPERATOR-GRINDER MILL OPERATOR - 08/14/2022 1:00 PM EST Images from [...] B27 positive) 2003 Followed with Rheum at [facility] Open fracture of other and [...] and/or coordination of care. Sincerely, Saskia Madison APRN-GRINDER MILL OPERATOR [facility] Division of Gastroenterology & Hepatology 08/14/22 1:54 PM GI clinic documented in this [id number] History of Present illness Narrative* Emily Dunn RN - 08/14/2022 2:08 PM EST During this visit the vaccine(s) was: Administered Obtained informed verbal consent from patient/parent/patient sales solutions representative for immunization(s) as ordered, questionnaire completed and VIS educational handouts reviewed with patient/parent/patient sales solutions representative who denies contraindications and verbalizes understanding of indication, potential side effect and actions to be taken if side effects occur. Double identification of patient completed with patient/parent/patient sales solutions representative using name and prior to administration, [...] B27 positive) 2003 Followed with Rheum at [facility] Open fracture of other and [...] 8:19 AM GI clinic documented in this [id number] History of Present illness Narrative* Emily Dunn RN - 08/14/2022 2:08 PM EST During this visit the vaccine(s) was: Administered Obtained informed verbal consent from patient/parent/patient sales solutions representative for immunization(s) as ordered, questionnaire completed and VIS educational handouts reviewed with patient/parent/patient sales solutions representative who denies contraindications and verbalizes understanding of indication, potential side effect and actions to be taken if side effects occur. Double identification of patient completed with patient/parent/patient sales solutions representative using name and prior to administration, and patient tolerated immunization(s) administration without incident. * Maura Canela - 08/14/2022 1:08 PM EST Patient was identified by name and date of . Maura Foxtient at risk for falls:No Falls Risk protocol implemented: No * Saskia Madison, TUMBLING MACHINE OPERATOR-GRINDER MILL OPERATOR - 08/14/2022 1:00 PM EST Images from [...] B27 positive) 2003 Followed with Rheum at [facility] Open fracture of other and [...] likely 2/2 hemolytic anemia) -discuss with transplant crm technical lead, Dr. Gary and arrange for f/u in [...] 8:19 AM GI clinic documented in this [id number] History of Present illness Narrative* Jasmyne Grimaldo [...] clinic. Jasmyne Grimaldo RN documented in this [id number] Instructions* Patient Instructions* Emily Dunn RN - [...] these numbers to schedule your Upper Endoscopy. [facility] [address] [place], [place] [address] West Entrance Thursday-Thursday 8A-4P [facility] [address] [place], [place] [address] Thursday-Thursday 8A-4P [facility]. [address] [place] [address] [id number] Thursday-Thursday 8A-4P Centralized GI Procedure scheduling: UPPER [...] hours, please call to speak to the [facility] nurse hand button splitter. If you need to cancel this appointment, please call , at least 48 hours before your appointment time. For additional health or procedure preparation information call the Open[employer]unny[employer]ump line at . The [facility] line is open 24 hours a day [...] any problems or questions, please call the [email or web address] line at [phone]. documented in this [id number] Instructions* Patient Instructions* Emily Dunn RN - [...] these numbers to schedule your Upper Endoscopy. [facility] [address] [place], [place] [address] West Entrance Thursday-Thursday 8A-4P [facility] [address] [place], [place] [id number] Thursday-Thursday 8A-4P [facility]. [address] [place], [place] [address] Thursday-Thursday 8A-4P Centralized GI Procedure scheduling: UPPER [...] hours, please call to speak to the [facility] nurse hand button splitter. If you need to cancel this appointment, please call , at least 48 hours before your appointment time. For additional health or procedure preparation information call the [email or web address] line at . The [email or web address] line is open 24 hours a day [...] any problems or questions, please call the [email or web address] line at [phone]. documented in this [id number] History of Present illness Narrative* Tanvir Black [...] B27 positive) 2003 Followed with Rheum at [facility] Open fracture of other and [...] Center 08/14/2022 11:30 AM [facility] 08/14/2022 12:[address] [facility] 08/14/2022 1:00 PM Saskia Madison APRN-[facility] Liver [facility] Tanvir Black MD Hematology/Oncology 05/06/22 4:11 PM [...] 100 %. Sally Chavez documented in this [id number] History of Present illness Narrative* Leslie Canela [...] results. Leslie Canela RN documented in this [id number] History of Present illness Narrative* Rosita Le RN - 03/13/2022 12:29 PM EDT Patient was identified by name and date of . 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 Blood obtained via venipuncture from RAC mlktw98G 3/4in butterfly needle. Blood specimen sent to lab. Pt tolerated procedure well. Pt verbalized follow up instructions and discharged home in stable condition. Rosita Le RN documented in this [id number] History of Present illness Narrative* Tanvir Black [...] B27 positive) 2003 Followed with Rheum at [facility] Open fracture of other and [...] to oncologist closer to his home in [facility]. Patientto call back with name of rn imaging and fax number.will keep care here with [...] Inv Card [facility] 05/06/2022 10:30 AM [facility] 05/06/2022 11:[address] [facility] Kelly Ella Black MD Hematology/Oncology 03/13/22 5:20 PM * Jojo Garcia - 03/13/2022 11:41 AM EDT .Patient was identified by name and date of . Jojo Garcia .Patient at risk for falls:Yes Falls Risk protocol implemented: No documented in this [id number] Hospital Discharge instructions Patient Education 02/17/2022 16:25:10 [...] care provider. Do not drink alcohol. Take pfsp-gcd-ofcydje and prescription medicines only as told by [...] 08/24/2006 Document Revised: 05/26/2019 Document Reviewed: 05/26/2019 [employer] Patient Education 2020 [employer]. 02/17/2022 16:25:10 Cellulitis, Adult Cellulitis, Adult Cellulitis [...] Follow these instructions at home: Medicines Take iojv-rqb-zfvlhri and prescription medicines only as told by [...] such as antibiotic medicines or antihistamines. Take qfvo-ytg-daijgzg and prescription medicines only as told by [...] 06/03/2006 Document Revised: 01/13/2019 Document Reviewed: 01/13/2019 [employer] Patient Education 2020 [employer]. 02/17/2022 16:25:10 Hypokalemia Hypokalemia Hypokalemia means that [...] hospital. Follow these instructions at home: Take eszt-wdj-mswtdpy and prescription medicines only as told by [...] cantaloupe, kiwi, oranges, tomatoes, asparagus, and potatoes. ?[place]asco juice. ?Tomato juice. ?Red meats. ?Yogurt. Keep [...] 08/24/2006 Document Revised: 04/06/2019 Document Reviewed: 04/06/2019 [employer] Patient Education 2020 [employer]. 02/17/2022 16:25:10 Peripheral Edema Peripheral Edema Peripheral [...] by your health care provider. Medicines Take hvvv-fzh-xxdcxkh and prescription medicines only as told by [...] 10/01/2005 Document Revised: 05/18/2019 Document Reviewed: 05/18/2019 [employer] Patient Education 2020 [employer]. Follow Up Care 02/17/2022 12:28:34 With:Milagros Lofton Address:Unknown When:02/20/2022 15:52:54 Comments:Return to the emergency room if your pain gets worse, fever, swelling gets worse or any new symptoms With:Colby Link Address: [address] [facility] [place] [address] Business (1) When:Within 3 Day(s) [facility]06-13-2022 Evaluation + Plan noteExtracted from: Title:ED NoteAuthor:Christi Luo M.D. HDate:02/17/22 1. Pedal edema (R60.0: Local ized edema) 2. Cellulitis of scrotum (N49.2: Inflammatory disorders of scrotum) 3. Thrombocytopenia (D69.6: Thrombocytopenia, unspecified) 4. Hypokalemia (E87.6: Hypokalemia) Orders: clindamycin, 300 mg = 2 cap(s), Oral, QID, # 56 cap(s), Refills(s) 0, Pharmacy: [facility], 170.2, cm, 02/17/22 12:34:00 EDT, Height/Length [...] Charcoal 02/17/22 * Blood Culture Charcoal 02/17/22 [facility]06-07-2022 Telephone encounter Note* Telephone Encounter - [...] Kulwinder Dozier PharmD, PharmD. Oncology Specialty Pharmacist [id number] Date: 02/11/22 [id number] Miscellaneous Notes* Telephone Encounter - Kulwinder Dozier [...] Kulwinder Dozier PharmD, PharmD. Oncology Specialty Pharmacist [id number] Date: 02/11/22 * Telephone Encounter - Kulwinder Dozier PharmD - 02/11/2022 12:39 PM EDT Images from the original note were not included. [facility] Pharm[facility] Referral [facility] received a prescription for MMF (Cellcept) for this patient on 02/11/2022. [facility] has been contacted to initiate a Prior Authorization for this medication. This is an immunomodulatory agent Patient Information: Will Ralph is a 36 year old male [address] [facility] [address] Insurance on file: [employer] ID: [id number] BIN: [id number] PCN: -- Group: [id number] Specialty Medication Medication and dosing: mycophenolate (CELLCEPT) 500 MG tablet- Take 2 tablets by mouth 2 times daily. 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 [...] pharmacist once medication is approved. Questions for [facility] may be directed to [phone] option 3. Thank you for the referral, Kulwinder Dozier PharmD Oncology Specialty Pharmacist [phone] documented in this [id number] Telephone encounter Note* Telephone Encounter - Kulwinder Dozier PharmD - 02/11/2022 12:39 PM EDT Images from the original note were not included. [facility] Referral [facility] received a prescription for MMF (Cellcept) for this patient on 02/11/2022. [facility] has been contacted to initiate a Prior Authorization for this medication. This is an immunomodulatory agent Patient Information: Will Ralph is a 36 year old male [id number] [facility] [address] Insurance on file: [email or web address] COMMERCIAL ID: [id number] BIN: [id number] PCN: -- Group: [id number] Specialty Medication Medication and dosing: mycophenolate (CELLCEPT) 500 MG tablet- Take 2 tablets by mouth 2 times daily. 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 [...] pharmacist once medication is approved. Questions for [facility] may be directed to [phone] option 3. Thank you for the referral, Kulwinder Dozier PharmD Oncology Specialty Pharmacist [phone] [id number] History of Present illness Narrative* Cyn Hopper RN - 02/11/2022 11:45 AM EDT Patient was identified by name and date of . 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 Blood obtained via venipuncture from RAC using 23G 3/4in butterfly needle. Blood specimen sent to lab. Pt tolerated procedure well, dressing applied. AVS provided and reviewed. Pt verbalized follow up instructions and discharged home in stable condition. Cyn Hopper RN documented in this [id number] Miscellaneous Notes* Telephone Encounter - Liseth Santana [...] patient 2. [place] [phone] (Pharmacy Prior Authorization Pool) Patient advised to follow up with provider's office if they have any further questions or if no answer after 3 business days. Providers office is to contact patient to advise of medication changes/next steps documented in this [id number] Miscellaneous Notes* Care Plan Note - Rosa [...] Adequate for Discharge 01/17/2022 1626 by Rosa Mensah, IRENA Outcome: Progressing 01/17/2022 1625 by Rosa Mensah [...] RNF BARRIERS TO PLAN OF CARE: None TRADING ASSISTANT RN Jessee Callahan RN DAY SHIFT RN Elder. Daily RN * Transfer Note - Keo [...] was yellow x 1 day. While at [facility], patient was HDS, however noted with significant bru ising and edema of LUE. Reportedly, trauma surgery was consulted at [facility] and there was initially concern for compartment syndrome and fasciotomy was considered, but ultimately did not occur at the time. The trauma attending Dr. Du recommended orthopedic consultation upon arrival to the [facility] MICU. While at [facility] labs significant for indirect hyperbilirubinemia, and acute macrocytic anemia 6.9 requiring 1u pRBC and [address] Abd/Pelvis W/ Contrast showed liver cirrhosis and steatosis without CBD dilation. Received morphine, ceftriaxone, protonix, thiamine. Started on NS for rhabdo. Patient transferred to [facility] for tertiary center care. While in the [facility] MICU, Ortho following - request MR [...] to F soon- weaning precidex off Sw/case planner for dc concerns Problem: Safety: Goal: Free [...] OF CARE: BARRIERS TO PLAN OF CARE: TRADING ASSISTANT RN: Bharat Callahan DAY SHIFT RN: Meli Keane * 1:1 Interaction - Keo Gaona MD - 01/14/2022 7:42 AM EDT Images from the original note were not included. SECLUSION/RESTRAINTS PROVIDER CPAS-DH-HGOG EVALUATION NOTE Will Ralph was evaluated on [...] home-going needs (PRN) Note: Family updates Sw/case planner as needed Problem: Safety: Goal: Free from [...] none BARRIERS TO PLAN OF CARE: none TRADING ASSISTANT RN Jessee Unger RN DAY SHIFT IRENA Graham RN * 1:1 Interaction - Hannah Leggett MD - 01/13/2022 4:30 AM EDT Images from the original note were not included. SECLUSION/RESTRAINTS PROVIDER MBBM-LY-EERB EVALUATION NOTE Will Ralph was evaluated on [...] None BARRIERS TO PLAN OF CARE: None TRADING ASSISTANT RN : Elsa Jenkins RN DAY SHIFT [...] original note were not included. SECLUSION/RESTRAINTS PROVIDER GQHG-GU-ZAAN EVALUATION NOTE Will Ralph was evaluated on [...] none BARRIERS TO PLAN OF CARE: none TRADING ASSISTANT IRENA Canales DAY SHIFT IRENA Childers * 1:1 Interaction - Hannah Leggett MD - 01/11/2022 1:39 AM EDT Images from the original note were not included. SECLUSION/RESTRAINTS PROVIDER IIMO-RW-JAKV EVALUATION NOTE Will Ralph was evaluated on [...] remain still for MRI. Dr. Antoinette montero. TRADING ASSISTANT RN Quinn Jameson DAY SHIFT RN Jessee Childers * 1:1 Interaction - Abhinav De La Vega DO - 01/10/2022 2:31 PM EDT SECLUSION/RESTRAINTS PROVIDER HLOG-UW-XNAP EVALUATION NOTE Will Ralph was evaluated on [...] original note were not included. SECLUSION/RESTRAINTS PROVIDER WXSD-JZ-YIWP EVALUATION NOTE Will Ralph was evaluated on [...] discussed with the patient and/or legal sales solutions representative. The risks, benefits and alternatives were reviewed. Questions regarding blood transfusions were answered. The patient /or the patient s legal sales solutions representative agree with the plan for transfusion [...] - 01/09/2022 9:02 AM EDT SECLUSION/RESTRAINTS PROVIDER EQGP-ZA-VMQT EVALUATION NOTE Will Ralph was evaluated on [...] original note were not included. SECLUSION/RESTRAINTS PROVIDER YBPI-EV-TGAS EVALUATION NOTE Will Ralph was evaluated on [...] - 01/08/2022 10:46 PM EDT SECLUSION/RESTRAINTS PROVIDER AQRL-SZ-CTIJ EVALUATION NOTE Will Ralph was evaluated on [...] of harm to self documented in this [id number] Hospital course Narrative* Afua Umanzor MD - 01/17/2022 3:31 PM EDT Images from the original note were not included. DISCHARGE SUMMARY [place] [id number] Will Ralph Date of : 1985 36 [...] Referral Type: Service Level Authorization Referral Location: [facility] Number of Visits Requested: 3 Expiration Date: 01/17/23 HEMATOLOGY SERVICE REQUEST Referral Priority: Routine Referral Type: Service Level Authorization Referral Location: [facility] HEMATOLOGY Number of Visits Requested: 3 Expiration Date: 01/17/23 LIVER SERVICE REQUEST Referral Priority: Routine Referral Type: Service Level Authorization Referral Location: [facility] LIVER Number of Visits Requested: 3 Expiration Date: 01/17/23 Future Appointments Date Time Provider Department Center 01/20/2022 11:00 AM Abbey Alvarez MD [facility] [place] 01/23/2022 11:45 AM Ronen Welch MD [facility] ORTHO [facility] 02/11/2022 10:00 AM Tanvir Black MD [facility] Condition at Discharge Improved Activity No [...] bilirubin may falsely lower creatinine 169 63 105 46 1058 6.4 2.6 2.10 11.1 Comment: Elevated bilirubin [...] followed by pain. He was seen at [facility] and transferred to ICU He [...] he will get assistance from rehab in [place] for alcohol abuse. On the day of discharge, patient was stable. Left arm swelling was improving. He has good peripheral pulses in the left arm. He is alert and oriented x3. CVS - systolic murmur, lungs - clear to auscultation, abdomen - soft, nontender, CLIENT RELATIONSHIP EXECUTIVE - alert, moving all extremities. Current Discharge [...] follow-up Afua umanzor MD documented in this [id number] History of Present illness Narrative* Kennedi Best [...] ETOH resources. Pt declines assistance. RAI Claudio, MANUFACTURER'S REPRESENTATIVE-S [phone] * Afua Umanzor MD - 01/16/2022 8:18 AM EDT Images from the original note were not included. GENERAL MEDICAL FLOOR DAILY PROGRESS NOTE Will Ralph [id number] 01/16/2022 Length of stay: 8 day(s) SUBJECTIVE: [...] adenomyosis. Gallbladder sludge.No pericholecystic fluid or sonographic Gaelano's sign to suggest acute cholecystitis. 3. Normal [...] ATTENDING NOTE LEON SANTANA MD - PIN [id number] I saw and evaluated the patient. I [...] Medicine [facility] * Reanna Doyle, [facility] - 01/15/2022 9:24 AM EDT Pharmacy [...] been updated per consult agreement. REANNA DOYLE [facility] Department of Pharmacy Services * Keo Gaona MD - 01/15/2022 7:51 AM EDT Images from the original note were not included. [facility] Medical Intensive Care Unit Critical Care Progress Note Will Ralph 36 year old [id number] lbs MRN/Room: [id number]/CP3-303/1 Length of stay: 7 day(s) Summary 36M [...] was yellow x 1 day. While at [facility], patient was HDS, however noted with significant bru ising and edema of LUE. Reportedly, trauma surgery was consulted at [facility] and there was initially concern for compartment syndrome and fasciotomy was considered, but ultimately did not occur at the time. The trauma attending Dr. Du recommended orthopedic consultation upon arrival to the [facility] MICU. While at [facility] labs significant for indirect hyperbilirubinemia, and acute macrocytic anemia 6.9 requiring 1u pRBC and [address] Abd/Pelvis W/ Contrast showed liver cirrhosis and steatosis without CBD dilation. Received morphine, ceftriaxone, protonix, thiamine. Started on NS for rhabdo. Patient transferred to [facility] for tertiary center care. While in the [facility] MICU, Ortho following - request MR [...] Temp src Pulse Resp SpO2 O2 Device 05/11/22 0700 -- -- -- 116 21 100 [...] WNL;Dressing intact 01/09/22399 Infusion Status Port #1 Capped;Patent;Positive blood return 01/09/22399 Number of days: 1 External Urinary Collection (Active) Site Assessment WNL 01/09/22399 Collection Type Drainage bag 05/05/22 0400 Catheter Care Catheter tube secured 01/09/22 [...] Basos% 01/14/22 0355 66.0 20.0 9.0 2.0 01/13/22251 69.0 8 [...] No overt GIB. 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 MICU ATTENDING NOTE LEON SANTANA MD - PIN [id number] I saw and evaluated the patient. I [...] medical issues requiring critical care management include: CLIENT RELATIONSHIP EXECUTIVE FAILURE. HEPATIC FAILURE . Additional findings and [...] from the original note were not included. [facility] Medical Intensive Care Unit Critical Care Progress Note Will Ralph 36 year old 136.685 lbs MRN/Room: [id number]/CP3-303/1 Length of stay: 6 day(s) Summary 36M [...] was yellow x 1 day. While at [facility], patient was HDS, however noted with significant bru ising and edema of LUE. Reportedly, trauma surgery was consulted at [facility] and there was initially concern for compartment syndrome and fasciotomy was considered, but ultimately did not occur at the time. The trauma attending Dr. Du recommended orthopedic consultation upon arrival to the [facility] MICU. While at [facility] labs significant for indirect hyperbilirubinemia, and acute macrocytic anemia 6.9 requiring 1u pRBC and [address] Abd/Pelvis W/ Contrast showed liver cirrhosis and steatosis without CBD dilation. Received morphine, ceftriaxone, protonix, thiamine. Started on NS for rhabdo. Patient transferred to [facility] for tertiary center care. While in the [facility] MICU, Ortho following - request MR [...] dexmedetomidine (PRECEDEX) IV infusion orderable 0.8 mcg/kg/hr (01/13/220) Tube feed 20 mL/hr at 05/05/22 1500 lactated ringers 150 mL/hr at 01/14/22 [...] improving with IV hydration Hyperbilirubinemia worsening since [facility]. DDx favors hemolysis - could be from [...] No overt GIB. 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 [facility] Intensive Care Unit Critical Care Progress Note Will Ralph 36 year old [id number] lbs MRN/Room: [id number]/CP3-303/1 Length of stay: 5 day(s) Summary 36M [...] was yellow x 1 day. While at [facility], patient was HDS, however noted with significant bru ising and edema of LUE. Reportedly, trauma surgery was consulted at [facility] and there was initially concern for compartment syndrome and fasciotomy was considered, but ultimately did not occur at the time. The trauma attending Dr. Du recommended orthopedic consultation upon arrival to the [facility] MICU. While at [facility] labs significant for indirect hyperbilirubinemia, and acute macrocytic anemia 6.9 requiring 1u pRBC and [address] Abd/Pelvis W/ Contrast showed liver cirrhosis and steatosis without CBD dilation. Received morphine, ceftriaxone, protonix, thiamine. Started on NS for rhabdo. Patient transferred to [facility] for tertiary center care. While in the [facility] MICU, Ortho following - request MR [...] 7.8 1.73 6.6 19.5 113 25.3 69 05/08/22 0341 2.12 01/12/22 0340 8.0 1.72 6.5 [...] No overt GIB. 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 MICU ATTENDING NOTE LEON SANTANA MD - PIN [id number] I saw and evaluated the patient. I [...] management include: ACUTE BLOOD LOSS ANEMIA and CLIENT RELATIONSHIP EXECUTIVE FAILURE. HEPATIC FAILURE . Additional findings and [...] falsely lower creatinine 148 61 131 01/11/22 011 5.7 2.6 2.20 11.4 Comment: Elevated bilirubin [...] Thurman LSW - 01/13/2022 9:49 AM EDT SW ICU Note: SW continues to follow for positive screen for low risk suicide and abuse. SW spoke with bedside RN who reported pt alert but drowsy. SW to follow up with pt to attempt to address. [facility] 10:59 AM Addendum: SW met with pt at bedside. Pt sleeping upon SW entering room. Pt restrained, with mits. SW did not awake to name being called several times. SW will follow up with pt as appropriate to address. Codi Thurman [facility] Coord[facility] Department * Elizabeth Unger RN [...] ATTENDING NOTE LEON SANTANA MD - PIN [id number] I saw and evaluated the patient. I [...] management include: ACUTE BLOOD LOSS ANEMIA and CLIENT RELATIONSHIP EXECUTIVE FAILURE, HEPATIC FAILURE. Additional findings and notation: [...] from the original note were not included. [facility] Medical Intensive Care Unit Critical Care Progress Note Will Ralhp 36 year old 149.35191 lbs MRN/Room: [id number]/CP3-303/1 Length of stay: 4 day(s) Summary 36M [...] was yellow x 1 day. While at [facility], patient was HDS, however noted with significant bru ising and edema of LUE. Reportedly, trauma surgery was consulted at [facility] and there was initially concern for compartment syndrome and fasciotomy was considered, but ultimately did not occur at the time. The trauma attending Dr. Du recommended orthopedic consultation upon arrival to the [facility] MICU. While at [facility] labs significant for indirect hyperbilirubinemia, and acute macrocytic anemia 6.9 requiring 1u pRBC and [address] Abd/Pelvis W/ Contrast showed liver cirrhosis and steatosis without CBD dilation. Received morphine, ceftriaxone, protonix, thiamine. Started on NS for rhabdo. Patient transferred to [facility] for tertiary center care. While in the [facility] MICU, Ortho following - request MR [...] No overt GIB. 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 [facility] Medical Intensive Care Unit Critical Care Progress Note Will Ralph 36 year old 151.91543 lbs MRN/Room: [id number]/CP3-139/1 Length of stay: 3 day(s) Summary 36M [...] was yellow x 1 day. While at [facility], patient was HDS, however noted with significant bru ising and edema of LUE. Reportedly, trauma surgery was consulted at [facility] and there was initially concern for compartment syndrome and fasciotomy was considered, but ultimately did not occur at the time. The trauma attending Dr. Du recommended orthopedic consultation upon arrival to the [facility] MICU. While at [facility] labs significant for indirect hyperbilirubinemia, and acute macrocytic anemia 6.9 requiring 1u pRBC and [address] Abd/Pelvis W/ Contrast showed liver cirrhosis and steatosis without CBD dilation. Received morphine, ceftriaxone, protonix, thiamine. Started on NS for rhabdo. Patient transferred to [facility] for tertiary center care. While in the [facility] MICU, Ortho following - request MR [...] Glycemic Control: NA Medications: Ceftriaxone 2g, day 12/10 Nexium 40mg IV BID Prednisilone 1mg/kg Labs: [...] improving with IV hydration Hyperbilirubinemia worsening since [facility]. DDx favors hemolysis - could be from [...] No overt GIB. 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 I [...] falsely lower creatinine 95 57 143 01/10/22 035 6.0 2.7 2.60 11.1 Comment: Elevated bilirubin [...] and 1u FFP and was transfered to [facility]-ICU for further management. On (01/08) PM [...] Candido Lerner MD Hematology- Oncology PGY-V Pager [phone] Associated attestation - Rd Weaver MD - [...] with GI attending, Dr. Haley Gary MD ([id number]) and Ulysses Solomon MD. Primary team updated via [employer] secure chat. We will sign off but please don't hesitate to reach out with questions or concerns. Abbey Alvarez MD Gastroenterology Fellow Personal Pager [phone] GI Consult Pager (nights and weekends) [phone] * Francisco Marino MD - 01/10/2022 9:13 AM EDT MICU ATTENDING NOTE FRANCISCO MARINO MD - PIN [id number] I saw and evaluated the patient. I [...] ACUTE BLOOD LOSS ANEMIA, HEPATIC FAILURE, and CLIENT RELATIONSHIP EXECUTIVE FAILURE. Additional findings and notation: Will Ralph is a 36 year old male with PMH of EtOH dependence who presented with 2 days of L arm pain to [facility] ED. 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 [facility] Intensive Care Unit Critical Care Progress Note Will Ralph 36 year old 150.13763 lbs MRN/Room: [id number]/CP3-139/1 Length of stay: 2 day(s) Summary 36M [...] was yellow x 1 day. While at [facility], patient was HDS, however noted with significant bru ising and edema of LUE. Reportedly, trauma surgery was consulted at [facility] and there was initially concern for compartment syndrome and fasciotomy was considered, but ultimately did not occur at the time. The trauma attending Dr. Du recommended orthopedic consultation upon arrival to the [facility] MICU. While at [facility] labs significant for indirect hyperbilirubinemia, and acute macrocytic anemia 6.9 requiring 1u pRBC and [address] Abd/Pelvis W/ Contrast showed liver cirrhosis and steatosis without CBD dilation. Received morphine, ceftriaxone, protonix, thiamine. Started on NS for rhabdo. Patient transferred to [facility] for tertiary center care. While in the 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 I [...] ACUTE BLOOD LOSS ANEMIA, HEPATIC FAILURE, and CLIENT RELATIONSHIP EXECUTIVE FAILURE. Additional findings and notation: Will Ralph is a 36 year old male with PMH of EtOH dependence who presented with 2 days of L arm pain to [facility] ED. 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 Pt is currently confused, restrained and unable to participate in conversation at this time. SW will follow up with pt to address as appropriate. Codi [facility] Care Coordination Department * Ivy Chua MD - 01/09/2022 7:34 AM EDT Images from the original note were not included. [facility] Medical Intensive Care Unit Critical Care Progress Note Will Ralph 36 year old 149.6925 lbs MRN/Room: [id number]/CP3-139/1 Length of stay: 1 day(s) Summary 36M [...] skin was yellow x 1 day. At [facility], pt was HDS. Noted with significant bruising and edema of LUE. Reportedly, trauma surgery was consulted at [facility] and there was initially concern for compartment syndrome and fasciotomy was considered, but ultimately did not occur at the time. The trauma attending Dr. Du recommended orthopedic consultation upon arrival to the [facility] MICU. Labs significantfor indirect hyperbilirubinemia, acute macrocytic anemia 6.9. CT abd/pel with contrast showed livercirrhosis and steatosis; no CBD dilation. Received morphine, ceftriaxone, protonix, thiamine. Received 1u pRBC and 1u FFP at [facility]. Started on NS for rhabdo. Transferred to [facility] for tertiary center care. Ortho following [...] 6.7 19.0 103 23.3 52 01/09/228 1.94 01/08/221824 5.4 1.94 7.3 20.3 105 24.0 52 [...] INR #Suspected EtOH cirrhosis -hyperbili worsening since [facility]. DDx favors hemolysis - could be from [...] for overt GIB -s/p 1u pRBC from [facility], did not increment appropriately - only [...] not reliable given recent pRBC infusion at [facility] -2 Large bore PIVs -transfuse Hb <7 [...] (deescalation of antibiotics): ctx Social- dad Rich [phone] and mom Code Status: Full Code Dispo: MICU Staffed with attending cardiac exercise specialist Dr. Marino. Ivy Chua MD Internal [...] n/a BARRIERS TO PLAN OF CARE: n/a TRADING ASSISTANT RN DAY SHIFT RN Chao * Loreta Macedo - 01/08/2022 1:33 PM EDT [facility] Spiritual Care Services Services provided for: Patient and Family Services initiated by: Staff Curb Attendant Reason for services: Initial visit Narrative: Curb Attendant knocked and entered patient's room to introduce self and share availability of spiritual care. Patient was sitting up in bed, awake and alert, visiting with his parents. Patient was polite and appreciative of visit but stated he had no spiritual care needs at this time. Interventions: Introduction of service Outcome: Patient aware of sports team manager availability Plan of Care: Follow-up not anticipated Loreta Macedo MDiv Staff Curb Attendant, (she/her/hers) Ext: [phone] Pager: [phone] documented in this [id number] Consult note* Keith Bolivar, KIYA - 01/16/2022 2:24 PM EDT OCCUPATIONAL THERAPY [...] With Patients permission ordered no equipment via Kadenze Order. If any questions contact [facility] DME Provider at [phone]. 6 Clicks Daily Activity OT 01/16/2022 Help [...] Guard Assist/Supervision 4 - Non = Modified Baylis/Independent ASSESSMENT: ASSESSMENT: Will Ralph is performing functional [...] With Patients permission ordered no equipment via Kadenze Order. If any questions contact [facility] DME Provider at [phone]. 6 Clicks Basic Mobility PT 01/16/2022 Difficulty [...] unilateral rail. Pt negotiated stairs with a [id number]-bocd-[id number] pattern. Education: Instructed pt in roles of [...] Guard Assist/Supervision 4 - Non = Modified Baylis/Independent Pt resting in recliner at end of [...] Clinical Specialist in Neurologic Physical Therapy Pager: [phone] AAROM = active assisted range of motion [...] falsely lower creatinine 95 57 143 01/10/22 035 6.0 2.7 2.60 11.1 Comment: Elevated bilirubin may falsely lower creatinine 87 54 147 Fingerstick Glucose (last 72 hours) Glucose 01/14/22 0956 143 Comment: Notified IRENA NICHOLAS MD Follow Protocol 01/14/22 0355 154 Comment: Follow Protocol 01/13/222125 185 Comment: Notified IREAN NICHOLAS MD 01/13/22 1551 226 01/13/22 0935 [...] % Nutrition Focused Physical Exam Muscle loss: Yazdanism region: mild depression Clavicle region: visible but [...] ml/h continuously. No ordered water TF intake 5/5 560 ml 5/6 1020 ml 5/7 1380 ml 5/8 1440 ml /9 1440 ml Est needs: current wt [phone] kcal/d 30-35 kcal/kg 95 g pro/d 1.5 [...] regular diet as mentation allows Mehreen Raza MS, RD [facility] Pager [phone] () Dietitian hand button splitter (7a-7p) pager: [phone] * Chioma Butler OT - 01/14/2022 12:23 [...] joint effusion. 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 If any questions contact [facility] DME Provider at [phone]. 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 If any questions contact [facility] DME Provider at [phone]. 6 Clicks Basic Mobility PT 01/14/2022 Difficulty [...] acute alcoholic hepatitis/Cirrhosis/Encp[ja;p[atju, suspected ETOH cirrhosis, indirect gqbigufkbmccrta9eag, jaundice, elevated INR, thrombocytopenia, hyponatremia, rabdomyolysis Pt [...] and 1u FFP and was transfered to [facility]- ICU for further management. On (01/08) [...] B27 positive) 2003 Followed with Rheum at [facility] Open fracture of other and [...] Cl CO2 Gap Glu BUN Cr Ca 01/09/228 133 4.0 100 27 10 142 [...] and 1u FFP and was transfered to [facility]- ICU for further management. On (01/08) [...] Candido Lerner MD Hematology- Oncology PGY-V Pager [phone] Associated attestation - Rd Weaver MD - 01/10/2022 2:24 PM EDT Teaching Physician Note: I saw and evaluated the patient. I personally obtained the ferraro and critical portions of the historyand physical exam. I reviewed the fellow/resident's documentation and discussed the patient with the fellow/resident. I agree with the fellow resident's medical decision making as documented in the Fe llow/resident's note. * Mehreen Raza Ruth Ann, RD - 01/09/2022 9:56 AM EDT Associated [...] and copper levels Mehreen Raza MS RD [facility] Pager [phone] () Dietitian hand button splitter (7a-7p) pager: [phone] * Robert Allen MD - 01/08/2022 5:01 PM EDT Associated Order(s): IP ORTHOPAEDICS GENERAL CONSULT Images from the original note were not included. rthopaedi Surgery Consult H&P Requesting Provider / Service: [...] the entire UE, causing him present to [facility] ED. While in the ED, the pt was noticed to be jaundiced and was found to be in acute liver failure. He was transferred to [facility] MICU for escalation of care. Ortho [...] -- 89 15 94 % Room air 01/08/22705 -- -- -- 116 24 97 % -- 01/08/22 07 -- -- -- -- -- -- Room [...] Mcmullen DO and will be discussed with hand button splitter ortho hand attending. Dr. Welch. Robert Allen MD HÉCTOR Orthopaedic Surgery, PGY 2 Pager [phone] After 5 pm and on weekends, please page the on-call resident ([phone]) with questions or concerns. 01/08/22 This consult [...] admitted to MICU as a transfer from [facility] where he initially presented for left [...] multi vitamin, zinc, thiamine and folate supplementation. [facility] assessors for alcohol withdrawal [...] continue to follow with you. Personal Pager [phone] GI Consult Pager (nights and weekends) [phone] Abbey Alvarez MD Gastroenterology Fellow Division of [...] varices. Ulysses Solomon MD documented in this [id number] Hospital Discharge instructions* Instructions* Rosa Mensah, IRENA [...] is right for you. Copyright Copyright 2020 [employer]. and its affiliates and/or licensors. All rights [...] as [facility] doctor, psychiatrist, social science manager, or alcohol counselor. Stay sober. Get [...] irritable. Where can I learn more? [place] of Alcohol Abuse and Alcoholism http://www.niaaa.nih.gov/alcohol-health/bmbdmxss-ovnfdyu-qurzsmqsleu/alcohol-use -disorders National Health Service https://www.nhs.uk/conditions/alcohol-misuse/ Substance Abuse [...] is right for you. Copyright Copyright 2020 [employer]. and its affiliates and/or licensors. All rights reserved. Patient Education Alcohol Use ? When Is Drinking a Problem? The Basics Written by the doctors and editors at [facility] How do I know if I am [...] a counselor (such as a psychologist, social science manager, or psychiatrist) Take medicines Take part [...] process is complete. This topic retrieved from [employer] on: Apr 04, 2020. Topic 47877 Version 9.0 Release: 28.4.6 - C28.294 2019 [employer]. and/or its affiliates. All rights reserved. figure [...] and your health. Available at: http://rethinkingdrinking.niaaa.nih.gov. Graphic 95554 Version 1828.0 Consumer Information Use and Disclaimer [...] that is right for you.The use of [employer] content is governed by the [employer] Terms of Use. 2020 [employer]. All rights reserved. Copyright 2020 [employer]. and/or its affiliates. All rights reserved. Patient [...] weights; are a rock climber, skier, gymnast, deputy chief sheriff, or forestry and wildlife manager; or do other sports What are the [...] playing sports. Where can I learn more? [employer] [employer] https://orthoinfo.aaos.org/en/diseases--conditions/uzorxj-wszwad-sqxb-at-the-elb ow Last Reviewed Date 2018-06-01 Consumer Information [...] is right for you. Copyright Copyright 2020 [employer]. and its affiliates and/or licensors. All rights [...] listed above. After business hours please call [facility] tool honing machine set up operator at and ask for the orthopeadicresident hand button splitter. For emergencies call [phone]. [facility] Upper Extremity and Hand Surgery MD Enrique Duffy MD Kyle Chepla, MD Andrea Gallup, TUMBLING MACHINE OPERATOR-GRINDER MILL OPERATOR Josiane Muhammad, MD Saroj Mojica MD Michael Keith, MD Adrienne Lee, MD Mary Grace Lenehan, PAOmarC MD Michael Bergeron MD Kathryn Wozniak, PAOmarC Orthopaedic Surgery Nurse Line Orthopaedic Surgery [...] is right for you. Copyright Copyright 2020 [employer]. and its affiliates and/or licensors. All rights [...] is right for you. Copyright Copyright 2020 [employer] and its affiliates and/or licensors. All rights reserved. Patient Education Autoimmune Hemolytic Anemia The Basics Written by the doctors and editors at [employer] What is autoimmune hemolytic anemia? -- Autoimmune [...] process is complete. This topic retrieved from [employer] on: Apr 04, 2020. Topic 47832 Version 9.0 Release: 28.4.6 - C28.294 2019 [employer] and/or its affiliates. All rights reserved. Consumer [...] that is right for you.The use of [employer] content is governed by the [employer] Terms of Use. 2020 [employer]. All rights reserved. Copyright 2020 [employer] and/or its affiliates. All rights reserved. documented in this [id number] History and physical note* Francisco Marino MD - 01/08/2022 2:02 PM EDT [facility] FRANCISCO MARINO MD - PIN [id number] I saw and evaluated the patient. I [...] 2 days of L arm pain to [facility] ED. 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. Pt states he was working on [...] of aleve every morning for pain. At [facility], presenting VS were 36.3C/HR 105/RR18/BP 145/68/ SpO2 98% on room air. Ht 170.18cm,wt 75kg. received morphine, ceftriaxone, protonix, thiamine. Received 1u pRBC and 1u FFP at [facility]. Started on NS @ 150cc/h. Reportedly, trauma surgery was consulted at [facility] and there was initially concern for compartment syndrome and fasciotomy was considered, but ultimately did not occur at the time. The trauma attending Dr. Du recommended orthopedic consultation upon arrival to the [facility] MICU. Labs at [facility] Alk phos [...] Plt 63 MCV 108 Neutrophils 44.8% Per [facility] ED note, 08/2020 Hb was 16.3 [...] ---> and please see images uploaded to [facility]. Resident's Assessment/Plan: Will Ralph is a 36 [...] INR #Suspected EtOH cirrhosis -hyperbili worsening since Meet. DDx favors hemolysis from hematoma formation from [...] for overt GIB -s/p 1u pRBC from [facility], did not increment appropriately - only 6.9 [...] Code Status: Full Code Staffed with attending cardiac exercise specialist Dr. Marino. Ivy Chua MD Internal Medicine PGY-3 documented in this [id number] Evaluation + Plan note Extracted from:Title:Admission H & PAuthor:Ila MULTANI, Aldair SDate:01/07/22 36-year-old male with past medical history of alcohol abuse presented with left arm/hand swelling. Left upper extremity swelling and hematoma Acute anemia in setting of thrombocytopenia and cirrhosis Hemoglobin 6.9. Hemoglobin 16.3 in 08/2020 INR 1.6. Platelets 63 Trauma surgery evaluated the patient. No need for immediate surgery. Patient waiting for bed at [facility] Patient received vitamin K, 1 unit FFP's. Order 1 unit PRBCs Check CK, myoglobin. Repeat hemoglobin Vancomycin and Zosyn Every hour neurochecks. [facility] trauma team following. If swelling gets worse then patient will needto go to the OR Jaundice Cirrhosis Acute liver failure CT abdomen/pelvis with contrast showed mild to moderate body wall edema/cellulitis of anterior chest, moderate hepatic cirrhosis, trace ascites, sludge and probably stones within mild to moderate dilated gallbladder without findings to suggest acute cholecystitis Meld score 22 GI consulted in ED, recommended transferring to tertiary center. Patient waiting for bed at [facility] Acute pancreatitis CT abdomen showed mild inflammation [...] made to ensure accuracy, however, inadvertently computerized dental amalgam processor mistakes may be present. Dr. Aldair Thorpe [...] Signs Weight Addendum by Ila MULTANI, Aldair Rinaldi on January 07, 2022 18:44:52 EDT . [facility]04-01-2020 Evaluation + Plan note Future Appointments Appointment Date:12/07/2023 08:00:00 AM Scheduled [facility]: [facility] Echo () Appointment Date:12/07/2023 09:00:00 AM Scheduled Provider: [facility] Type:CV EKG () Appointment Date:12/11/2023 08:00:00 AM Scheduled Provider: [facility] Type:CV Echo Stress () Appointment Date:01/27/2024 09:40:00 AM Scheduled Provider:Loreta Padilla Location:[facility] Appointment Type: Open Future Scheduled Tests Laboratory* HgbA1c 07/24/23 * Timcj-3-Whhataxbzmm 09/01/23 * Ceruloplasmin 09/01/23 * Antimitochondrial Antibody, [...] Contrast 12/11/23 * Echo Transthoracic Complete 12/07/23 [facility] Future App[facility]ments Appointment Date:03/16/2023 11:00:00 AM Scheduled Provider:Teddy Hitchcock MD Location[facility] Appointment Type:WC Follow Up Visit (FT) [facility] Future Appointments Appointment Date:03/30/2023 11:00:00 AM Scheduled Provider:Teddy Hitchcock MD [facility] Type:WC Follow Up Visit (FT) [facility] Future Appointments Appointment Date:04/16/2023 12:00:00 PM Scheduled Provider: [facility] Appoint[facility] Type:US Duplex Procedures (FT) Appointment Date:04/23/2023 10:15:00 AM Scheduled Provider:Teddy Hitchcock MD Location:[facility] Appointment Type:WC Follow Up Visit (FT) Future Scheduled Tests Radiology* US PVR Lower EXT Complete Bilat 04/16/23 [facility] Future Appointments Appointment Date:04/23/2023 10:15:00 AM Scheduled Provider:Teddy Hitchcock MD Location:[facility] Appointment Type:WC Follow Up Visit (FT) [facility] Future Appointments Appointment Date:04/30/2023 08:30:00 AM Scheduled Provider: Location[facility] Appointment Type:WC Assessment (FT) Appointment Date:05/07/2023 11:30:00 AM Scheduled Provider:Teddy Hitchcock MD Location[facility] Appointment Type:WC Follow Up Visit (FT) [facility] Future Appointments Appointment Date:05/07/2023 11:30:00 AM Scheduled Provider:Teddy Hitchcock MD Location[facility] Appointment Type:WC Follow Up Visit (FT) [facility] Future Appointments Appointment Date:05/14/2023 07:00:00 AM Scheduled Provider:Teddy Hitchcock MD Location[facility] Appointment Type:WC Follow Up Visit (FT) [facility] Future Appointments Appointment Date:05/21/2023 11:15:00 AM Scheduled Provider:Teddy Hitchcock MD Location[facility] Appointment Type:WC Follow Up Visit (FT) [facility] Future Appointments Appointment Date:06/04/2023 10:45:00 AM Scheduled Provider:Teddy Hitchcock MD Location[facility] Appointment Type:WC Follow Up Visit (FT) [facility] Future Appointments Appointment Date:06/11/2023 01:00:00 PM Scheduled Provider: Location[facility] Appointment Type:WC Assessment (FT) Appointment Date:06/18/2023 10:00:00 AM Scheduled Provider:Teddy Hitchcock MD Location[facility] Appointment Type:WC Follow Up Visit (FT) [facility] Future App[facility]ments Appointment Date:06/25/2023 11:00:00 AM Scheduled Provider:Teddy Hitchcock MD [facility] Type:WC Follow Up Visit (FT) [facility] Future Appointments Appointment Date:07/06/2023 10:30:00 AM Scheduled Provider:Teddy Hitchcock MD [facility] Type:WC Follow Up Visit (FT) [facility] Future Appointments Appointment Date:07/16/2023 09:30:00 AM Scheduled Provider:Teddy Hitchcock MD [facility] Type:WC Follow Up Visit (FT) [facility] Future Appointments Appointment Date:07/23/2023 09:00:00 AM Scheduled Provider:Teddy Hitchcock MD [facility] Appointment Type:WC Follow Up Visit (FT) Appointment Date:07/24/2023 07:40:00 AM Scheduled Provider:Loreta Padilla Location:[facility] Appointment Type: [facility] - [facility] Future Appointments Appointment Date:07/24/2023 07:40:00 AM Scheduled Provider:Loreta Padilla Location:[facility] Appointment Type: New Patient - Adult Appointment Date:08/06/2023 09:30:00 AM Scheduled Provider:Teddy Hitchcock MD [facility] Type:WC Follow Up Visit (FT) [facility] Future Appointments Appointment Date:08/06/2023 09:30:00 AM Scheduled Provider:Teddy Hitchcock MD [facility] Appointment Type:WC Follow Up Visit (FT) Appointment Date:08/21/2023 07:20:00 AM Scheduled Provider:Loreta Padilla Location:[facility] Appointment Type: Open Future Scheduled Tests [...] Acid 07/24/23 * Vitamin B12 Level 07/24/23 [facility] Evaluation + Plan note Future Appointments Appointment Date:08/21/2023 07:20:00 AM Scheduled Provider:Loreta Padilla Location:[facility] Appointment Type:FM Open Appointment Date:09/01/2023 12:00:00 PM Scheduled Provider:Carrol MULTANI, Mario Xiong Location:[facility] Appointment Type:BAD New Patient Future [...] Acid 07/24/23 * Vitamin B12 Level 07/24/23 [facility] Future App[facility]ments Appointment Date:09/01/2023 12:00:00 PM Scheduled Provider:Mario Evans MD Location:[facility] Appointment Type:BADH New Patient Appointment Date:10/28/2023 09:00:00 AM Scheduled Provider:Loreta Padilla Location:[facility] Appointment Type: Open Future Scheduled Tests [...] Acid 07/24/23 * Vitamin B12 Level 07/24/23 [facility] Evaluation + Plan note Future Appointments Appointment Date:09/03/2023 09:00:00 AM Scheduled Provider: Location[facility] Appointment Type:US Abdominal/Pelvis () Appointment Date:10/28/2023 09:00:00 AM Scheduled Provider:Loreat Padilla Location:[facility] Appointment Type: Open Future Scheduled Tests Laboratory* HgbA1c 07/24/23 * Esbxw-3-Skmhvagcrcd 09/01/23 * Ceruloplasmin 09/01/23 * Antimitochondrial Antibody, [...] B12 Level 07/24/23 Radiology* US Liver 09/03/23 [facility] Evaluation + Plan note Future Appointments Appointment Date:10/28/2023 09:00:00 AM Scheduled Provider:Loreta Padilla Location:[facility] Appointment Type: Open Future Scheduled Tests Laboratory* HgbA1c 07/24/23 * Wzapi-8-Ujectslqptc 09/01/23 * Ceruloplasmin 09/01/23 * Antimitochondrial Antibody, [...] Acid 07/24/23 * Vitamin B12 Level 07/24/23 [facility] Future App[facility]ments Appointment Date:09/30/2023 10:15:00 AM Scheduled Provider: Location:[facility] Appointment Type:Surgery FT Appointment Date:10/01/2023 11:20:00 AM Scheduled Provider:Loreta Padilla Location:[facility] Appointment Type: Open Appointment Date:10/28/2023 09:00:00 AM Scheduled Provider:Loreta Padilla Location:[facility] Appointment Type: Open Future Scheduled Tests Laboratory* HgbA1c 07/24/23 * Vyblb-0-Jdndykswiog 09/01/23 * Ceruloplasmin 09/01/23 * Antimitochondrial Antibody, [...] Acid 07/24/23 * Vitamin B12 Level 07/24/23 [facility] Evaluation + Plan note Future Appointments Appointment Date:11/11/2023 03:00:00 PM Scheduled Provider: Location:[facility] Appointment Type:Surgery FT Appointment Date:11/13/2023 01:00:00 PM Scheduled Provider:Barby MULTANI, Iglesia Mary [facility] [place] Appointment Type:Cardiology New Patient (FT) Appointment Date:12/07/2023 08:00:00 AM Scheduled Provider: [facility] Type:CV Echo () Appointment Date:12/07/2023 09:00:00 AM Scheduled Provider: [facility] Type:CV EKG () Appointment Date:12/07/2023 09:30:00 AM Scheduled Provider: [facility] Type:CV Echo Stress () Appointment Date:01/27/2024 09:40:00 AM Scheduled Provider:Loreta Padilla Location:[facility] Appointment Type: Open Future Scheduled Tests Laboratory* HgbA1c 07/24/23 * Volpp-1-Twrjodgdnhk 09/01/23 * Ceruloplasmin 09/01/23 * Antimitochondrial Antibody, [...] Contrast 12/07/23 * Echo Transthoracic Complete 12/07/23 [facility] Evaluation + Plan note Future Appointments Appointment Date:01/27/2024 09:40:00 AM Scheduled Provider:Loreta Padilla Location:[facility] Appointment Type:FM Open Appointment Date:05/12/2024 03:15:00 PM Scheduled Provider:Carrol MULTANI, Mario Xiong Location:[facility] Appointment Type:BADH Follow Up Future Scheduled Tests Laboratory* HgbA1c 07/24/23 * Ibyfd-4-Winnjjhdizj 09/01/23 * Ceruloplasmin 09/01/23 * Antimitochondrial Antibody, [...] Acid 07/24/23 * Vitamin B12 Level 07/24/23 [facility] Future App[facility]ments Appointment Date:12/23/2023 10:00:00 AM Scheduled Provider:Loreta Padilla Location:[facility] Appointment Type: Hospital Follow Up w/TCM Appointment Date:12/25/2023 11:15:00 AM Scheduled Provider:Marc Liz MD [facility] [place] Appoint[facility] Type:Cardiology New Patient (FT) Appointment Date:01/27/2024 09:40:00 AM Scheduled Provider:Loreta Padilla Location:[facility] Appointment Type: Open Appointment Date:05/12/2024 03:15:00 PM Scheduled Provider:Mario Evans MD Location:[facility] Appointment Type:[facility] Follow Up Diagnostic Tests Pending * Acute Hepatitis A B C Panel 12/21/23 * HCV Antibody RFX to Quant PCR 12/21/23 * HIV Screen 4th Generation wRfx 12/21/23 Future Scheduled Tests Laboratory* Bneim-9-Lywfqdcewqf 09/01/23 * Ceruloplasmin 09/01/23 * Antimitochondrial Antibody, [...] 07/24/23 * PT 07/24/23 * PT 09/01/23 [facility] Future Appointments Appointment Date:12/31/2023 08:00:00 AM Scheduled Provider: [facility] Appointment Type:US Abdominal/Pelvis () Appointment Date:01/06/2024 08:15:00 AM Scheduled Provider:Marc Liz MD [facility] [place] [facility] Type:Cardiology New Patient () Appointment Date:01/27/2024 09:40:00 AM Scheduled Provider:Loreta Padilla Location:[facility] Appointment Type:FM Open Appointment Date:05/12/2024 03:15:00 PM Scheduled Provider:Mario Evans MD Location:[facility] Appointment Type:BADH Follow Up Future Scheduled Tests Laboratory* Gumlh-2-Ysdhzmzwdfs 09/01/23 * Ceruloplasmin 09/01/23 * Antimitochondrial Antibody, [...] PT 09/01/23 Radiology* US Abdomen, Limited 12/31/23 [facility] Evaluation + Plan note Future Appointments Appointment Date:01/06/2024 08:15:00 AM Scheduled Provider:Shalonda MULTANI, Marc Love [facility] [place] Appoint[facility] Type:Cardiology New Patient (FT) Appointment Date:01/27/2024 09:40:00 AM Scheduled Provider:Loreta Padilla Location:[facility] Appointment Type:FM Open Appointment Date:05/12/2024 03:15:00 PM Scheduled Provider:Carrol MULTANI, Mario Xiong Location:[facility] Appointment Type:BADH Follow Up Future Scheduled Tests Laboratory* Orosd-0-Desgxhixnhm 09/01/23 * Ceruloplasmin 09/01/23 * Antimitochondrial Antibody, [...] 07/24/23 * PT 07/24/23 * PT 09/01/23 [facility] Future App[facility]ments Appointment Date:02/26/2024 08:15:00 AM Scheduled Provider:Iglesia Dior MD [facility] [place] Appoint[facility] Type:Cardiology New Patient (FT) Appointment Date:04/29/2024 09:00:00 AM Scheduled Provider:Loreta Padilla Location:[facility] Appointment Type: Open Appointment Date:05/12/2024 03:15:00 PM Scheduled Provider:Mario Evans MD Location:[facility] Appointment Type:BADH Follow Up Future Scheduled Tests Laboratory* Vcvkz-5-Gkizxivaush 09/01/23 * Ceruloplasmin 09/01/23 * Antimitochondrial Antibody, [...] 07/24/23 * PT 07/24/23 * PT 09/01/23 [facility] Evaluation + Plan note Future Appointments Appointment Date:02/22/2024 09:15:00 AM Scheduled Provider:Marc Liz MD [facility] Type:Cardiology New Patient (FT) Appointment Date:02/25/2024 09:00:00 AM Scheduled Provider:Ella Barahona [facility] Type:ONC Office Visit New 45 (FT) Appointment Date:04/29/2024 09:00:00 AM Scheduled Provider:Loreta Padilla Location:[facility] Appointment Type:FM Open Appointment Date:05/12/2024 03:15:00 PM Scheduled Provider:Mario Evans MD Location:[facility] Appointment Type:[facility] Follow Up Future Scheduled Tests Laboratory* Csrbf-3-Qmvkkpqloxp 09/01/23 * Ceruloplasmin 09/01/23 * Antimitochondrial Antibody, [...] 07/24/23 * PT 07/24/23 * PT 09/01/23 [facility] Future Appointments Appointment Date:03/14/2024 09:20:00 AM Scheduled Provider:Ella Barahona [facility] Type:ONC Office Visit 20 (FT) Appointment Date:03/16/2024 08:15:00 AM Scheduled Provider:Marc Liz MD [facility] Type:Cardiology New Patient (FT) Appointment Date:04/29/2024 09:00:00 AM Scheduled Provider:Loreta Padilla Location:[facility] Appointment Type: Open Appointment Date:05/12/2024 03:15:00 PM Scheduled Provider:Mario Evans MD Location:[facility] Appointment Type:[facility] Follow Up Future Scheduled Tests Laboratory* Ibpba-8-Gjraohfgcyd 09/01/23 * Ceruloplasmin 09/01/23 * Antimitochondrial Antibody, [...] 07/24/23 * PT 07/24/23 * PT 09/01/23 [facility] Future Appointments Appointment Date:03/14/2024 09:20:00 AM Scheduled Provider:Janet HUERTA, Ella Polk [facility] Type:ONC Office Visit 20 (FT) Appointment Date:03/17/2024 02:15:00 PM Scheduled Provider:Marc Liz MD [facility] Type:Cardiology New Patient (FT) Appointment Date:04/29/2024 09:00:00 AM Scheduled Provider:Loreta Padilla Location:[facility] Appointment Type: Open Appointment Date:05/12/2024 03:15:00 PM Scheduled Provider:Mario Evans MD Location:[facility] Appointment Type:BADH Follow Up Diagnostic Tests Pending * Haptoglobin 03/02/24 * Copper Level 03/02/24 Future Scheduled Tests Laboratory* Ofbek-1-Obsjxpuvixh 09/01/23 * Ceruloplasmin 09/01/23 * Antimitochondrial Antibody, [...] 07/24/23 * PT 07/24/23 * PT 09/01/23 [facility] Future Appointments Appointment Date:03/17/2024 02:15:00 PM Scheduled Provider:Marc Liz MD [facility] Type:Cardiology New Patient (FT) Appointment Date:04/13/2024 09:00:00 AM Scheduled Provider:Kavon Lu DO [facility] Type:ONC Office Visit 20 (FT) Appointment Date:04/29/2024 09:00:00 AM Scheduled Provider:Loreta Padilla Location:[facility] Appointment Type:FM Open Appointment Date:05/12/2024 03:15:00 PM Scheduled Provider:Mario Evans MD Location:[facility] Appointment Type:BADH Follow Up Future Scheduled Tests Laboratory* Hnheu-3-Pmftqctmzmc 09/01/23 * Ceruloplasmin 09/01/23 * Antimitochondrial Antibody, [...] * PT 09/01/23 * Reticulocyte Count 04/04/24 [facility] Future Appointments Appointment Date:04/13/2024 09:00:00 AM Scheduled Provider:Kavon Lu DO [facility] Type:ONC Office Visit 20 (FT) Appointment Date:04/29/2024 09:00:00 AM Scheduled Provider:Loreta Padilla Location:[facility] Appointment Type: Open Appointment Date:05/12/2024 03:15:00 PM Scheduled Provider:Mario Evans MD Location:[facility] Appointment Type:[facility] Follow Up Future Scheduled Tests Laboratory* Nadvm-8-Nfbbwkxkesj 09/01/23 * Ceruloplasmin 09/01/23 * Antimitochondrial Antibody, [...] * PT 09/01/23 * Reticulocyte Count 04/04/24 [facility] Future Appointments Appointment Date:05/05/2024 01:40:00 PM Scheduled Provider:Kavon Lu DO [facility] Type:ONC Office Visit 20 (FT) Appointment Date:05/12/2024 03:15:00 PM Scheduled Provider:Mario Evans MD Location:[facility] Appointment Type:[facility] Follow Up Appointment Date:07/29/2024 03:00:00 PM Scheduled Provider:Loreta Padilla Location:[facility] Appointment Type:FM Open Future Scheduled Tests Laboratory* Webvf-7-Zdouoahaijj 09/01/23 * Ceruloplasmin 09/01/23 * Antimitochondrial Antibody, [...] * PT 09/01/23 * Reticulocyte Count 04/27/24 [facility] Evaluation + Plan note Future Appointments Appointment Date:05/11/2024 09:00:00 AM Scheduled Provider:Kavon Lu DO Location[facility] Appointment Type:ONC Office Visit 20 (FT) Appointment Date:05/12/2024 03:15:00 PM Scheduled Provider:Mario Evans MD Location:[facility] Appointment Type:BADH Follow Up Appointment Date:07/29/2024 03:00:00 PM Scheduled Provider:Loreta Padilla Location:[facility] Appointment Type: Open Diagnostic Tests Pending * Haptoglobin 05/06/24 Future Scheduled Tests Laboratory* Ulwen-7-Huavgjgebkc 09/01/23 * Ceruloplasmin 09/01/23 * Antimitochondrial Antibody, [...] 07/24/23 * PT 07/24/23 * PT 09/01/23 [facility] Evaluation + Plan note Future Appointments Appointment Date:05/12/2024 03:15:00 PM Scheduled Provider:Carrol MULTANI, Mario Xiong Location:[facility] Appointment Type:BADH Follow Up Appointment Date:07/14/2024 02:40:00 PM Scheduled Provider:Kavon Lu DO [facility] Type:ONC Office Visit 20 (FT) Appointment Date:07/29/2024 03:00:00 PM Scheduled Provider:Loreta Padilla Location:[facility] Appointment Type: Open Future Scheduled Tests Laboratory* Antibody Screen 07/11/24 * Xzzvs-4-Ddbvbypjfrp 09/01/23 * Ceruloplasmin 09/01/23 * Antimitochondrial Antibody, [...] * Reticulocyte Count 07/11/24 * Transferrin 07/11/24 [facility] Evaluation + Plan note Future Appointments Appointment Date:05/24/2024 10:30:00 AM Scheduled Provider: [facility] Appoint[facility] Type:US Abdominal/Pelvis () Appointment Date:06/09/2024 01:15:00 PM Scheduled Provider:Mario Evans MD Location:[facility] Appointment Type:BADH Follow Up Appointment Date:07/14/2024 02:40:00 PM Scheduled Provider:Kavon Lu DO [facility] Type:ONC Office Visit 20 () Appointment Date:07/29/2024 03:00:00 PM Scheduled Provider:Loreta Padilla Location:[facility] Appointment Type: Open Future Scheduled Tests Laboratory* Antibody Screen 07/11/24 * Iuooj-8-Fqihojxdlrl 09/01/23 * Qcxxj-3-Dbnjlhbvnke 05/12/24 * Ceruloplasmin 09/01/23 * Ceruloplasmin 05/12/24 * [...] * Transferrin 07/11/24 Radiology* US Liver 05/24/24 [facility] Evaluation + Plan note Future Appointments Appointment Date:07/14/2024 02:40:00 PM Scheduled Provider:Kavon Lu DO Location:[facility] Appointment Type:ONC Office Visit 20 (FT) Appointment Date:07/29/2024 03:00:00 PM Scheduled Provider:Loreta Padilla Location:[facility] Appointment Type:FM Open Appointment Date:11/18/2024 08:15:00 AM Scheduled Provider: Location:[facility] Appointment Type:Surgery FT Appointment Date:11/21/2024 09:15:00 AM Scheduled Provider:Mario Evans MD Location:[facility] Appointment Type:[facility] Follow Up Future Scheduled Tests [...] * Transferrin 07/11/24 Radiology* US Liver 11/05/24 [facility] Evaluation + Plan note Future Appointments Appointment Date:07/14/2024 02:40:00 PM Scheduled Provider:Kavon Lu DO [facility] Type:ONC Office Visit 20 (FT) Appointment Date:07/29/2024 03:00:00 PM Scheduled Provider:Loreta Padilla Location:[facility] Appointment Type:FM Open Appointment Date:11/18/2024 08:15:00 AM Scheduled Provider: Location:[facility] Appointment Type:Surgery FT Appointment Date:11/21/2024 09:15:00 AM Scheduled Provider:Mario Evans MD Location:[facility] Appointment Type:[facility] Follow Up Diagnostic Tests Pending * Erythropoietin [...] * PT 07/24/23 Radiology* US Liver 11/05/24 [facility] Evaluation + Plan note Future Appointments Appointment Date:08/19/2024 03:20:00 PM Scheduled Provider:Loreta Padilla Location:[facility] Appointment Type:FM Open Appointment Date:09/29/2024 01:20:00 PM Scheduled Provider:Kavon Lu DO [facility] Type:ONC Office Visit 20 (FT) Appointment Date:11/18/2024 08:15:00 AM Scheduled Provider: Location:[facility] Appointment Type:Surgery FT Appointment Date:11/21/2024 09:15:00 AM Scheduled Provider:Mario Evans MD Location:[facility] Appointment Type:[facility] Follow Up Future Scheduled Tests [...] * PT 07/24/23 Radiology* US Liver 11/05/24 [facility] Evaluation + Plan note Future Appointments Appointment Date:06/09/2024 01:15:00 PM Scheduled Provider:Carrol MULTANI, Mario Xinog Location:[facility] Appointment Type:BADH Follow Up Appointment Date:07/14/2024 02:40:00 PM Scheduled Provider:Kavon Lu DO [facility] Type:ONC Office Visit 20 (FT) Appointment Date:07/29/2024 03:00:00 PM Scheduled Provider:Loreta Padilla Location:[facility] Appointment Type:FM Open Diagnostic Tests Pending * Wbcfq-6-Sewiygslziv 05/24/24 * GEOVANNA w/Reflex if POS 05/24/24 * Antimitochondrial Antibody, Quantitative 05/24/24 * Ceruloplasmin 05/24/24 * Acute Hepatitis A B C Panel 05/24/24 * Alpha Fetoprotein Tumor Marker 05/24/24 * Hepatitis B Surface Antibody 05/24/24 * Hepatitis B Surface Antigen 05/24/24 * Hepatitis A Virus (HAV) Antibody, Total 05/24/24 * IgG, Quant. 05/24/24 * Smooth Muscle Antibody Screen 05/24/24 * Ksyum-7-Lfxkcilxrjz 05/24/24 * GEOVANNA w/Reflex if POS 05/24/24 [...] * Reticulocyte Count 07/11/24 * Transferrin 07/11/24 [facility] Evaluation + Plan note Future Appointments Appointment Date:09/29/2024 01:20:00 PM Scheduled Provider:Kavon Lu DO [facility] Appointment Type:ONC Office Visit 20 (FT) Appointment Date:11/15/2024 07:40:00 AM Scheduled Provider:Vic Carrion Location:[facility] Appointment Type:FM Open Appointment Date:11/18/2024 08:15:00 AM Scheduled Provider: Location:[facility] Appointment Type:Surgery FT Appointment Date:11/21/2024 09:15:00 AM Scheduled Provider:Mario Evans MD Location:[facility] Appointment Type:BADH Follow Up Future [...] * PT 07/24/23 Radiology* US Liver 11/05/24 [facility] Evaluation + Plan note Future Appointments Appointment Date:09/29/2024 01:20:00 PM Scheduled Provider:Kavon Lu DO [facility] Type:ONC Office Visit 20 (FT) Appointment Date:10/05/2024 09:00:00 AM Scheduled Provider:Vic Carrion Location:[facility] Appointment Type: Open Appointment Date:11/18/2024 08:15:00 AM Scheduled Provider: Location:[facility] Appointment Type:Surgery FT Appointment Date:11/21/2024 09:15:00 AM Scheduled Provider:Mario Evans MD Location:[facility] Appointment Type:[facility] Follow Up Diagnostic Tests Pending [...] * PT 07/24/23 Radiology* US Liver 11/05/24 [facility] Evaluation + Plan note Future Appointments Appointment Date:10/05/2024 09:00:00 AM Scheduled Provider:Vic Carrion Location:[facility] Appointment Type: Open Appointment Date:11/11/2024 08:30:00 AM Scheduled Provider: Location[facility] Appointment Type:US Abdominal/Pelvis (FT) Appointment Date:11/18/2024 08:15:00 AM Scheduled Provider: Location:[facility] Appointment Type:Surgery FT Appointment Date:11/21/2024 09:15:00 AM Scheduled Provider:Mario Evans MD Location:[facility] Appointment Type:BAD Follow Up Appointment Date:09/28/2025 02:40:00 PM Scheduled [...] B12 Level 09/25/25 Radiology* US Liver 11/11/24 [facility] Evaluation + Plan note Future Appointments Appointment Date:11/11/2024 08:30:00 AM Scheduled Provider: [facility] Appointment Type:US Abdominal/Pelvis (FT) Appointment Date:11/18/2024 08:15:00 AM Scheduled Provider: Location:[facility] Appointment Type:Surgery FT Appointment Date:11/21/2024 09:15:00 AM Scheduled Provider:Mario Evans MD Location:[facility] Appointment Type:[facility] Follow Up Appointment Date:04/07/2025 08:40:00 AM Scheduled Provider:Vic Carrion Location:[facility] Appointment Type:FM Open Appointment Date:09/28/2025 02:40:00 [...] B12 Level 09/25/25 Radiology* US Liver 11/11/24 [facility] Evaluation + Plan note Future Appointments Appointment Date:11/11/2024 08:30:00 AM Scheduled Provider: [facility] Appointment Type:US Abdominal/Pelvis (FT) Appointment Date:11/18/2024 08:15:00 AM Scheduled Provider: Location:[facility] Appointment Type:Surgery FT Appointment Date:11/21/2024 09:15:00 AM Scheduled Provider:Mario Evans MD Location:[facility] Appointment Type:BADH Follow Up Appointment Date:04/07/2025 08:40:00 AM Scheduled Provider:Vic Carroin Location:[facility] Appointment Type:FM Open Appointment Date:09/28/2025 02:40:00 PM Scheduled Provider:Kavon Lu DO [facility] App[facility] Type:ONC Office Visit 20 () Future Scheduled Tests Laboratory* MELLISA and PE, [...] B12 Level 09/25/25 Radiology* US Liver 11/11/24 [facility] Evaluation + Plan note Future Appointments Appointment Date:11/21/2024 08:30:00 AM Scheduled Provider:Sadie Loco PA-C [facility] Type:[facility] - Follow Up (FT) Appointment Date:11/21/2024 09:15:00 AM Scheduled Provider:Mario Evans MD Location:[facility] Appointment Type:BADH Follow Up Appointment Date:04/07/2025 08:40:00 AM Scheduled Provider:Vic Carrion Location:[facility] Appointment Type:FM Open Appointment Date:09/28/2025 02:40:00 PM Scheduled Provider:Kavon Lu DO [facility] Type:ONC Office Visit 20 (FT) [...] B12 Level 09/25/25 Radiology* US Liver 05/08/25 [facility] Evaluation + Plan note Future Appointments Appointment Date:04/07/2025 08:40:00 AM Scheduled Provider:Vic Carrion Location:[facility] Appointment Type:FM Open Appointment Date:09/28/2025 02:40:00 [...] B12 Level 09/25/25 Radiology* US Liver 05/08/25 [facility] Evaluation + Plan note Future Appointments Appointment Date:12/20/2024 08:15:00 AM Scheduled Provider:Sadie Loco PA-C [facility] App[facility] Type:Pain Management - Follow Up (FT) Appointment Date:04/07/2025 08:40:00 AM Scheduled Provider:Vic Carrion Location:[facility] Appointment Type:FM Open Appointment Date:09/28/2025 02:40:00 PM Scheduled Provider:Kavon Lu DO [facility] Appoint[facility] Type:ONC Office Visit 20 (FT) [...] B12 Level 09/25/25 Radiology* US Liver 05/08/25 [facility] Evaluation + Plan note Future Appointments Appointment Date:03/17/2025 08:00:00 AM Scheduled Provider:Evelio Carr DO Location[facility] [place] Appointment Type:Pain Management - Nurse Consult (FT) Appointment Date:03/27/2025 08:00:00 AM Scheduled Provider: Location:[facility] Appointment Type:Surgery FT Appointment Date:04/03/2025 08:00:00 AM Scheduled Provider:Sadie Looc PA-C [facility] [place] Appointment Type:Pain Management - Follow Up (FT) Appointment Date:04/07/2025 08:40:00 AM Scheduled Provider:Vic Carrion Location:[facility] Appointment Type:FM Open Appointment Date:09/28/2025 02:40:00 PM Scheduled Provider:Kavon Lu DO [facility] Appoint[facility] Type:ONC Office Visit 20 (FT) Future Scheduled Tests Laboratory* MELLISA and PE, Serum 09/25/25 * Methylmalonic Acid 09/25/25 * PSA Screen, Total 08/19/24 * PT & PTT 12/26/24 * PT & PTT 03/27/25 * PT & PTT 06/27/25 * PT & PTT 09/27/25 * Free K+L Lt Chains,Qn,S 09/25/25 * Ammonia Level 08/19/24 * CBC w/ Auto Diff 12/26/24 * CBC w/ Auto Diff 03/27/25 * CBC w/ Auto Diff 06/27/25 * CBC w/ Auto Diff 09/27/25 * CBC w/ Auto Diff 11/21/24 * Comprehensive Metabolic Panel 12/26/24 * Comprehensive Metabolic Panel 03/27/25 * Comprehensive Metabolic Panel 06/27/25 * Comprehensive Metabolic Panel 09/27/25 * Comprehensive Metabolic Panel 11/21/24 * Folate Level 09/25/25 * Haptoglobin 12/26/24 * Haptoglobin 03/27/25 * Haptoglobin 06/27/25 * Haptoglobin 09/27/25 * Lipid Panel 08/19/24 * PT 11/21/24 * Reticulocyte Count 12/26/24 * Reticulocyte Count 03/27/25 * Reticulocyte Count 06/27/25 * Reticulocyte Count 09/27/25 * Vitamin B12 Level 09/25/25 Radiology* US Liver 05/08/25 [facility] Evaluation + Plan note Future Appointments Appointment Date:09/28/2025 02:40:00 PM Scheduled Provider:Kavon Lu DO [facility] Appoint[facility] Type:ONC Office Visit 20 (FT) Appointment Date:09/28/2025 03:40:00 PM Scheduled Provider:Vic Carrion Location:[facility] Appointment Type: Open Future Scheduled Tests Laboratory* MELLISA and PE, Serum 09/25/25 * Methylmalonic Acid 09/25/25 * PSA Screen, Total 08/19/24 * PT & PTT 12/26/24 * PT & PTT 03/27/25 * PT & PTT 06/27/25 * PT & PTT 09/27/25 * Free K+L Lt Chains,Qn,S 09/25/25 * Ammonia Level 08/19/24 * CBC w/ Auto Diff 12/26/24 * CBC w/ Auto Diff 03/27/25 * CBC w/ Auto Diff 06/27/25 * CBC w/ Auto Diff 09/27/25 * CBC w/ Auto Diff 11/21/24 * Comprehensive Metabolic Panel 12/26/24 * Comprehensive Metabolic Panel 03/27/25 * Comprehensive Metabolic Panel 06/27/25 * Comprehensive Metabolic Panel 09/27/25 * Comprehensive Metabolic Panel 11/21/24 * Folate Level 09/25/25 * Haptoglobin 12/26/24 * Haptoglobin 03/27/25 * Haptoglobin 06/27/25 * Haptoglobin 09/27/25 * Lipid Panel 08/19/24 * PT 11/21/24 * Reticulocyte Count 12/26/24 * Reticulocyte Count 03/27/25 * Reticulocyte Count 06/27/25 * Reticulocyte Count 09/27/25 * Vitamin B12 Level 09/25/25 Radiology* US Liver 05/08/25 [facility] Evaluation note* Diagnosis Hemolytic anemia (HCC)- [...] cholecystitis or obstruction [facility] Diagnosis Coagulation defect (HCC)- Primary Other and unspecified coagulation defects Alcoholic fatty liver Hyperbilirubinemia Disorders of bilirubin excretion Alcoholic hepatitis, unspecified whether ascites present (HCC) [facility] Diagnosis 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, unspecified site [facility] Diagnosis Lymphedema- Primary Other noninfectious lymphedema [facility]* Diagnosis Other chronic pain- Primary Spinal cord stimulator status [facility] Diagnosis PVD (peripheral vascular disease)- Primary Peripheral vascular disease, unspecified Right leg pain Pain in limb Cellulitis of right leg Cellulitis and abscess of leg, except foot Non-pressure chronic ulcer of left lower leg, unspecified ulcer stage (HCC) documented in this encounter [facility] Narrative - Reported* Type Description Date Medical History anxiety Medical HistoryLIVER ISSUESSurgical Historyfx jawHospitalization HistoryLIVER [id number] pinion-pins Other Hospital course Narrative No data available for this [facility] No data available for this section [facility]* Attachments The following attachments cannot be sent through Care Everywhere. * Moderate Sedation in Adults Discharge Instructions (Namibian) * Liver Biopsy Discharge Instructions (Namibian) documented [facility] encounter[facility]InstructionsNot on filedocumented in this encounterPro[facility] SystemInstructionsNot on filedocumented in this encounterProWexner [facility] SystemInstructionsNot on filedocumented in this encounterProWexner [facility] SystemInstructionsNot on filedocumented in this encounterK[facility] SystemProgress note No data available for this section [facility] for referral (narrative)* Tests/Procedures (Routine) - AuthorizedSpecialtyDiagnoses / ProceduresReferred By Contact Referred To ContactCardiovascular Testing Diagnoses Bilateral swelling of feet and ankles Tanvir Black MD [address] [place] [address] [facility] CARD NON INVASIVE [facility] [place] [address] Referral IDStatusReasonStart DateExpiration DateVisits RequestedVisits [id number]/7/20227/7/202311 Scheduling Instructions 1. Take your medicines as prescribed by your doctor. (If you take a water pill , do not take it the morning of the test. You may take it when you return home). 2. You may eat meals and drink fluids at your normal times. 3. This test takes approximately one hour. 4. Please call the [facility] at [phone] ([phone] if you are unable to keep your appointment. QuestionAnswer Insert IV access & flush with 3mL of 0.9% sodium chloride PRN to keep patent IF IV placement isrequired for this exam? Yes Clinical condition needing [...] SpO2 100 %. Room/bed info not found [facility] for visit Narrative* Auth/CertSpecialtyDiagnoses / Procedures Referred By ContactReferred To ContactCase Management Diagnoses Acute Liver Failure Procedures [facility] [address] [place] [address] Phone: [phone] [address] Phone: [phone] Referral IDStatusReasonStart DateExpiration DateVisits RequestedVisits [id number] [facility] for visit Narrative* Tests/Procedures (Routine) - Closed SpecialtyDiagnoses / ProceduresReferred By ContactReferred To Contact Cardiovascular Testing Diagnoses Bilateral swelling of feet and ankles Tanvir Black MD [address] [place] [address] [facility] CARD NON INVASIVE [address] [place] [address] Referral IDStatusReasonStart DateExpiration DateVisits RequestedVisits [id number]/7/20227/ [facility] for visit Narrative* Neuropsych Testing (Routine) - Closed SpecialtyDiagnoses / ProceduresReferred By ContactReferred To ContactNeurology Diagnoses Other specified mononeuropathies of unspecified lower limb Procedures [place] NEUROPSYCHOLOGICAL TST EVAL PHYS/QHP EA ADDL HR Evelio Carr DO [address] [place] [address] Phone: tel: fax: Margoth Johnson DO [address] [place] [address] Phone: tel: fax: Referral IDStatusReasonStart DateExpiration DateVisits RequestedVisits [id number] Specialty Services Required / [facility] Reason for Referral SpecialtyDiagnoses / ProceduresReferred By ContactReferred To Contact Diagnoses Alcoholic fatty liver Hyperbilirubinemia Alcoholic hepatitis, unspecified whether ascites present (HCC) Procedures XA HEPATIC VENOGRAM W/ HEMODYN (CHRISTIANO) Marcello Ibanez MD [address] [place] [address] [facility] INTERVENTIONAL RAD [address] [place] [address] Referral IDStatusReasonStart DateExpiration DateVisits RequestedVisits [id number]/16/20235/[id number] / Procedures Referred By ContactReferred To ContactRadiology Diagnoses Alcoholic cirrhosis of liver without ascites (HCC) Procedures XA TRANSJUGULAR LIVER BIOPSY (CHRISTIANO) XA INTERVENTIONAL RADIOLOGY PROCEDURE SERVICE Marcello Ibanez MD [address] [place] [address] [facility] ULTRASOUND [address] [place] [address] Referral IDStatusReasonStart DateExpiration DateVisits RequestedVisits [id number]/20/20232/687504JmxeqecdiRtfygdovv / Procedures Referred By ContactReferred To ContactRadiology Diagnoses Rib pain Procedures XR RIBS LT UNILAT W/PA CHEST Theo Burks MD [address] [place] [address] [place] [address] [facility] DIAGNOSTIC RADIOLOGY [address] [place] [address] [place] [address] Referral IDStatusReasonStart DateExpiration DateVisits RequestedVisits [id number]/10/20234/[id number] / Procedures Referred By ContactReferred To Contact Diagnoses Rib pain Theo Burks MD [address] [place] [address] [place] [address] Referral IDStatusReasonStart DateExpiration DateVisits RequestedVisits [id number] [id number] / ProceduresReferred By ContactReferred To Contact Diagnoses Iron deficiency anemia, unspecified iron deficiency anemia type Alcoholic cirrhosis, unspecified whether ascites present (HCC) Alcoholic cirrhosis of liver without ascites (HCC) Tanvir Black MD [address] [place] [address] [place] [address] Referral IDStatusReasonStart DateExpiration DateVisits RequestedVisits [id number] / ProceduresReferred By Contact Referred To ContactRadiology Diagnoses Alcoholic cirrhosis of liver without ascites (HCC) Procedures XA TRANSJUGULAR LIVER BIOPSY (CHRISTIANO) XA INTERVENTIONAL RADIOLOGY PROCEDURE SERVICE Marcello Ibanez MD [address] [place] [address] [facility] ULTRASOUND [address] [place] [address] Referral IDStatusEstellaasonStart DateExpiration DateVisits RequestedVisits [id number]/20/20232/378792OmqaozqmfVuypmvhau / Procedures Referred By ContactReferred To Contact Diagnoses Urinary tract infection without hematuria, site unspecified Leg swelling Tanvir Black MD [address] [place] [address] [place] [address] [facility] [address] [place] [address] Referral IDStatusReasonStart DateExpiration DateVisits RequestedVisits [id number]/15/20226/ Scheduling Instructions Please call Internal Medicine at to schedule an appointment. SpecialtyDiagnoses / ProceduresReferred By ContactReferred To ContactRadiology Diagnoses Lower extremity edema Procedures US LEG RIGHT VENOUS + DOPPLER Tanvir Black MD [address] [place] [address] [place] [address] [facility] ULTRASOUND [address] [place] [address] Referral IDStatusReasonStart DateExpiration DateVisits RequestedVisits [id number]/8/202212/8/037996XfagmlddrOqzzxrsgz / Procedures Referred By ContactReferred To ContactRadiology Diagnoses Iron deficiency anemia, unspecified iron deficiency anemia type Alcoholic cirrhosis, unspecified whether ascites present (HCC) Procedures US HEP PORT SPLEN VEIN + DOPPLER Saskia [place] APRN-GRINDER MILL OPERATOR [address] [place] [address] [place] [address] [facility] ULTR[facility]OUND [address] [place] [address] Referral IDStatusReasonStart DateExpiration DateVisits RequestedVisits [id number]/8/202212/8/074730HjrryehaeHcaydrqer / Procedures Referred By ContactReferred To ContactRadiology Diagnoses Iron deficiency anemia, unspecified iron deficiency anemia type Alcoholic cirrhosis, unspecified whether ascites present (HCC) Procedures US LIVER/GALL BLADDER/PANCREAS Saskia Madison, LIBAN-GRINDER MILL OPERATOR [address] [place] [address] [place] [address] [facility] ULTRASOUND [address] [place] [address] Referral IDStatusReasonStart DateExpiration DateVisits RequestedVisits [id number]/8/202212/8/014529JmliucliqXjohveloe / Procedures Referred By ContactReferred To Contact Afua Umanzor MD [address] [place] [address] Referral IDStatusReasonStart DateExpiration DateVisits RequestedVisits [id number] [id number] IDStatusReasonStart DateExpiration DateVisits RequestedVisits [id number] [id number] / ProceduresReferred By ContactReferred To ContactGastroenterology Diagnoses Alcoholic cirrhosis of liver without ascites (HCC) Afua Umanzor MD [address] [place] [address] [facility] LIVER [address] [place] [address] Referral IDStatusReasonStart DateExpiration DateVisits RequestedVisits [id number]/13/20225/13/202333 Scheduling Instructions Please call the Liver Clinic at to schedule an appointment if one was not made for you today. QuestionAnswer Reason for Referral: Cirrhosis [31] Which Liver clinic should the patient be scheduled in? 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 SpecialtyDiagnoses / ProceduresReferred By ContactReferred To Contact Diagnoses Tear of left biceps muscle, initial encounter Afua Umanzor MD [address] [place] [address] [facility] ORTHO HAND [address] [place] [address] Referral IDStatusReasonSteddyville DateExpiration DateVisits RequestedVisits [id number]/13/20225/13/202333 Scheduling Instructions Please call the [facility] at [phone] to schedule an appointment if one was not made for you today. QuestionAnswer Adult patient to be evaluated for: Elbow - Bicep Tear - Left [5] Comments No prior visits in PM&R No prior visits in Orthopedics SpecialtyDiagnoses / ProceduresReferred By ContactReferred To ContactRadiology Procedures US HEP PORT SPLEN VEIN + DOPPLER [address]cp [address] [place] [address], [place] [address] [facility] ULTR[facility]OUND [address] [place] [address] Referral IDStatusReasonStart DateExpiration DateVisits RequestedVisits [id number]/6/20225/6/444008RrninztydQmuphilrx / ProceduresReferred By ContactReferred To ContactRadiology Procedures US SPLEEN US SPLEEN Ccp [address] [place] [address] [facility] ULTRASOUND [address] [place] [address] Referral IDStatusReasonStart DateExpiration DateVisits RequestedVisits [id number]/5/20225/380663IcvrqogwmPzjuoaqrx / ProceduresReferred By ContactReferred To ContactRadiology Procedures XR ABDOMEN 1 [address] Ccp [address] [place] [address] [facility] DIAGNOSTIC RADIOLOGY [address] [place] [address] [place] [address] Referral IDStatusReasonStart DateExpiration DateVisits RequestedVisits [id number]/5/20225/5/145848DruckanevBpxoxsssu / ProceduresReferred By ContactReferred To ContactRadiology Procedures XR ORBITS Ccp [address] [place] [address] [facility] DIAGNOSTIC RADIOLOGY [address] [place] [address] [place] [address] Referral IDStatusReasonStart DateExpiration DateVisits RequestedVisits [id number]/4/20225/470000RsdljxodjPsitotwiq / ProceduresReferred By ContactReferred To ContactRadiology Procedures US ASCITES SURVEY 4 QUADRANTS Ccp 3 [place] [address] [facility] ULTRASOUND [address] [place] [address] Referral IDStatusReasonStart DateExpiration DateVisits RequestedVisits [id number]/4/20225/4/[id number] / ProceduresReferred By ContactReferred To ContactRadiology Procedures US LIVER/GALL BLADDER/PANCREAS Ccp [address] [place] [address] [facility] ULTRASOUND [address] [place] [address] Referral IDStatusReasonStart DateExpiration DateVisits RequestedVisits [id number]/4/20225/4/207475LpjzhxungGlivigbci / ProceduresReferred By ContactReferred To ContactRadiology Procedures XRAY CHEST IMAGE IMPORT(CHRISTIANO) Ivy Chua MD [address] [place] [address] [facility] DIAGNOSTIC RADIOLOGY [address] [place] [address] [place] [address] Referral IDStatusReasonStart DateExpiration DateVisits RequestedVisits [id number]/4/20225/4/[id number] / ProceduresReferred By ContactReferred To ContactRadiology Procedures CT BODY IMAGE IMPORT(CHRISTIANO) DOWNLOAD POWERSHARE IMAGES TO [facility] Ivy Chua MD [address] [place] [address] [facility] DIAGNOSTIC RADIOLOGY [address] [place] [address] [place] [address] Referral IDStatusReasonStart DateExpiration DateVisits RequestedVisits [id number]/4/20225/4/235321AsjsapkxoAaxvhfmqm / ProceduresReferred By ContactReferred To ContactRadiology Procedures XR HUMERUS LEFT Ccp [address] [place] [address] [facility] DIAGNOSTIC RADIOLOGY [address] [place] [address] [place] [address] Referral IDStatusReasonStart DateExpiration DateVisits RequestedVisits [id number] / ProceduresReferred By ContactReferred To ContactRadiology Procedures XR ELBOW LEFT MINIMUM 3 VIEWS Ccp 3 [address] [facility] [place] [address] [facility] DIAGNOSTIC RADIOLOGY [address] [place] [address] Referral IDStatusReasonStart DateExpiration DateVisits RequestedVisits [id number]/4/20225/4/202311 Advance Directives No Advanced Directives Records FoundLatest Code Status on File Code StatusDate ActivatedDate InactivatedCommentsFull Code01/08/2022 7:50 AM Documentation of decision process for this code status:Discussed with patient or surrogate. This is the code status chosen by the patient/surrogate.Code Status Date ActivatedDate InactivatedCommentsFull Code01/08/2022 7:50 AM01/17/2022 8:27 PM Code StatusDate ActivatedDate InactivatedCommentsFull Code01/08/2022 7:50 AM 01/17/2022 8:27 PMCode StatusDate ActivatedDate InactivatedCommentsFull Code 01/08/2022 7:50 AM01/17/2022 8:27 PMQuestionAnswerCommentsDocumentation of decision process for this code status:Discussed with patient or surrogate. This is the code status chosen by the patient/surrogate.Code StatusDate ActivatedDate InactivatedCommentsFull Code01/08/2022 7:50 AM01/17/2022 8:27 PMQuestionAnswer CommentsDocumentation of decision process for this code status:Discussed with patient or surrogate. This is the code status chosen by the patient/surrogate. Code StatusDate ActivatedDate InactivatedCommentsFull Code01/08/2022 7:50 AM 01/17/2022 8:27 PMQuestionAnswerCommentsDocumentation of decision process for this code status:Discussed with patient or surrogate. This is the code status chosen by the patient/surrogate.Date ActivatedDate InactivatedComments01/08/2022 7:50 AM01/17/2022 8:27 PMQuestionAnswerCommentsDocumentation of decision process for this code status:* Discussed with patient or surrogate. This is the code status chosen by the patient/surrogate. Summary Purpose Family History No Family History Records Found Additional Source Comments Scheduled Active and Recently Administ ered Medications (unrecognized section and content) Medication Order// cloNIDine (CATAPRES) 0.1 mg/24HR patch (CANCELED) 0.1 mg, Transdermal, EVERY 7 DAYS, First dose on Rachel 01/09/22 at 1400, Until Discontinued * 1446 (Patch Removal - Provider: Chrystal Pritchett LPN) * 1449 (Patch Applied - Provider: Chrystal Pritchett LPN) copper chloride 2 mg in sodium chloride 0.9 % 250 mL iv infusion 2 mg, Intravenous, DAILY, 5 doses, First dose on Thu01/14/22 at 1400, Last dose on Thu01/18/22 at 0900, at 125 mL/hr * 1002 (IV New Bag - Provider: Teddy Maher Rn, RN) * 0929 (IV New Bag - Provider: Chrystal Pritchett LPN) * 0900 (Hold/Not Given - Provider: Ana Salas RN - Reason: Medication unavailable) * 1118 (IV New Bag - Provider: Ana Salas, IRENA) diclofenac (VOLTAREN) 1 % topical GEL 2 g, Topical, 4 TIMES DAILY, First dose on Thu01/15/22 at 1700, Until Discontinued * 1700 (Hold/Not Given - Provider: Teddy Maher Rn, RN - Reason: Medication unavailable) * 1752 (Given - Provider: Teddy Maher Rn, RN - Comment: not on unit) * 2100 (Given - Provider: Farheen Dudley, IRENA) * 0900 (Hold/Not Given - Provider: Chrystal Pritchett LPN - Reason: Medication unavailable) * 1300 (Given - Provider: Chrystal Pritchett LPN) * 1805 (Given - Provider: Kristen Gan, RN) * 2210 (Given - Provider: Kristen Gan, RN) * 0900 (Hold/Not Given - Provider: Ana Salas RN - Reason: Patient refused) * 1300 (Hold/Not Given - Provider: Ana Salas RN - Reason: Patient refused) * 1700 (Hold/Not Given - Provider: Rosa Mensah RN - Reason: Patient refused) * 2100 (Due) esomeprazole (NEXIUM) capsule 40 mg, Oral, 2 TIMES DAILY 30 MIN BEFORE MEALS, First dose on Thu01/15/22 at 1630, Until Discontinued * 1632 (Given - Provider: Teddy Maher Rn, RN) * 0919 (Given - Provider: Chrystal Pritchett LPN) * 1805 (Given - Provider: Kristen Gan RN) * 1105 (Given - Provider: Ana Salas, RN) * 1649 (Given - Provider: Rosa Mensah, RN) folic acid 1 MG tablet 1 mg, Oral, DAILY, First dose on Thu01/16/22 at 0900, Until Discontinued * 0919 (Given - Provider: Chrystal Pritchett LPN) * 1105 (Given - Provider: Ana Salas, IRENA) insulin lispro (HumaLOG) 100 UNIT/ML injection (CANCELED) 1-7 Units, Subcutaneous, Every 6 hours, First dose (after last modification) on Thu01/13/22 at 2200,Until Discontinued * 0346 (Hold/Not Given - Provider: Obdulia Callahan RN - Reason: Not indicated) * 1007 (Hold/Not Given - Provider: Teddy Maher Rn, RN - Reason: Not indicated) * 1747 (Given - Provider: Teddy Maher Rn, RN) * 2200 (Hold/Not Given - Provider: Jose David Tsai RN - Reason: Not indicated) * 0800 (Hold/Not Given - Provider: Chrystal Pritchett LPN - Reason: Not indicated) * 1200 (Hold/Not Given - Provider: Chrystal Pritchett LPN - Reason: Not indicated) * 1805 (Given - Provider: Kristen Gan RN) * 2200 (Hold/Not Given - Provider: Kristen Gan RN - Reason: Not indicated) insulin lispro (HumaLOG) 100 UNIT/ML injection 1-7 Units, Subcutaneous, 3 TIMES DAILY BEFORE MEALS, First dose on Thu01/17/22 at 0800, Until Discontinued * 0800 (Hold/Not Given - Provider: Ana Salas RN - Reason: Not indicated) * 1200 (Hold/Not Given - Provider: Ana Salas RN - Reason: Not indicated) * 1700 (Hold/Not Given - Provider: Rosa Mensah RN - Reason: Patient refused) lactulose 20 g/30 mL oral solution (CANCELED) 20 g, NG Tube, 2 TIMES DAILY, First dose (after last modification) on Thu01/09/22 at 2100, Until Discontinued * 1002 (Given - Provider: Teddy Maher Rn, RN) lactulose 20 g/30 mL oral solution 20 g, Oral, 2 TIMES DAILY, First dose (after last modification) on Thu01/15/22 at 2100, Until Discontinued * 2100 (Given - Provider: Farheen Dudley, IRENA) * 0919 (Given - Provider: Chrystal Pritchett LPN) * 2208 (Given - Provider: Kristen Gan RN) * 1105 (Given - Provider: Ana Salas, IRENA) * 2100 (Due) multivitamins with minerals (CEROVITE) oral liquid 15 mL, Oral, DAILY, First dose on Rachel 01/09/22 at 1400, Until Discontinued * 1002 (Given - Provider: Teddy Maher Rn, RN) * 0919 (Given - Provider: Chrystal Pritchett LPN) * 1105 (Given - Provider: Ana Salas RN) oxyCODONE-acetaminophen (PERCOCET) 5-325 mg per tablet (COMPLETED) 1 Tablet, Oral, ONCE, 1 dose, On Rachel 01/16/22 at 0030 * 0050 (Given - Provider: Jose David Tsai RN) potassium chloride 20 MEQ/15ML (10%) oral solution (COMPLETED) 40 mEq, Oral, ONCE, 1 dose, On Thu01/15/22 at 0600 * 0545 (Given - Provider: Obdulia Callahan RN) prednisoLONE (ORAPRED) 15 MG/5ML oral solution 70 mg, Oral, DAILY, First dose on Thu01/11/22 at 0900, Until Discontinued * 1004 (Hold/Not Given - Provider: Teddy Maher Rn, RN - Reason: Medication unavailable) * 1219 (Given - Provider: Teddy Maher Rn, RN) * 1233 (Given - Provider: Chrystal Pritchett LPN) * 0900 (Hold/Not Given - Provider: Ana Salas RN - Reason: Medication unavailable) * 1247 (Given - Provider: Ana Salas RN) rifaximin (XIFAXAN) tablet 550 mg, Oral, 2 TIMES DAILY, First dose (after last modification) on Thu01/12/22 at 2100, Until Discontinued * 1002 (Given - Provider: Teddy Maher Rn, RN) * 2100 (Given - Provider: Farheen Shagovac, RN) * 0938 (Given - Provider: Chrystal Pritchett LPN) * 2208 (Given - Provider: Kristen Gan RN) * 1110 (Given - Provider: Ana Salas, IRENA) * 2100 (Due) tramadol (ULTRAM) tablet (COMPLETED) 50 mg, Oral, ONCE, 1 dose, On Thu01/15/22 at 1800 * 1745 (Given - Provider: Teddy Maher Rn, RN) vitamin B-1 (THIAMINE) tablet 100 mg, Oral, DAILY, First dose on Thu01/16/22 at 0900, Until Discontinued * 0918 (Given - Provider: Chrystal Pritchett LPN) * 1105 (Given - Provider: Ana Salas RN) vitamin B-12 (CYANOCOBALAMIN) tablet 500 mcg, Oral, DAILY, First dose on Thu01/09/22 at 1400, Until Discontinued * 1002 (Given - Provider: Teddy Maher Rn, RN) * 0919 (Given - Provider: Chrystal Pritchett LPN) * 1105 (Given - Provider: Ana Salas RN) Medication Order// acetaminophen (TYLENOL) 650 MG/20.3ML oral solution SF 500 mg, Oral, EVERY 6 HOURS PRN, Starting on Thu01/10/22 at 2022, Until Discontinued, Mild Pain (pain score 1,2,3), Moderate Pain (pain score 4,5,6) * 0250 (Given - Provider: Obdulia Callahan RN) * 0929 (Given - Provider: Teddy Maher Rn, RN) * 1632 (Given - Provider: Teddy Maher Rn, RN) * 2124 (Given - Provider: Farheen Dudley RN) * 0359 (Given - Provider: Jose David Tsai [...] Thu01/17/22 at 0015, Until Discontinued, blood glucose of49mg/dL or less, and with no IV access, [...] on Thu01/17/22 at 1435, Until Discontinued, Anxiety * 1530 (Given - Provider: Ana Salas RN) ondansetron (ZOFRAN) 4 MG/2ML injection 4 mg, Intravenous Push, EVERY 4 HOURS PRN, Starting on Thu01/14/22 at 0843, Until Discontinued, Vomiting, Nausea tramadol (ULTRAM) tablet 50 mg, Oral, EVERY 6 HOURS PRN, Starting on Thu01/16/22 at 0845, Until Discontinued, Moderate Pain (pain score 4,5,6), Severe Pain (pain score 7,8,9,10) * 0919 (Given - Provider: Chrystal Pritchett LPN) * 2208 (Given - Provider: Kristen Gan RN) Order Group 1: dextrose 10 % iv [...] Thu01/17/22 at 0015, Until Discontinued, blood glucose of49mg/dL or less, and with no IV access, alert and able to swallow. 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) Thrombocytopenia (HCC) Afua Umanzor MD [address] [place] [address] [facility] HEMATOLOGY [address] [place] [address] Referral IDStatusReasonStart DateExpiration DateVisits RequestedVisits [id number]/13/20225/13/329090HpwejqLrihpuxyDiuwq testReason CommentsMonitoring/follow-upFatiguenausea and vomitingReasonCommentsAIHAOn cellceptCirrhosis/other liver diseaseReasonCommentsNew patient, to establish relationshipSpecialtyDiagnoses / ProceduresReferred By ContactReferred To ContactGastroenterology Diagnoses Alcoholic cirrhosis of liver without ascites (HCC) Tanvir Black MD [address] [place] [address] [facility] LIVER [address] [place] [address] Referral IDStatusReasonStart DateExpiration DateVisits RequestedVisits [id number]/30/20228/30/344720ZbypbcHvyolmvmYZNGvjydo leg swellingright leg erythemaReasonCommentsUrine testConsult with specialistReason CommentsLeg/thigh symptomsPt states has infection in R leg x 4 days, seen yesterday for sameReasonCommentsLeg/thigh symptomsRight leg has a lot on fluids. ReasonCommentsMedicine Follow UpReasonCommentsLeg/thigh symptomsSwelling / red New patient, to establish relationshipReasonCommentsBoil/carbuncle/cellulitis localReasonOnset DateCommentsCancel Nagicwsuffd73/14/2023ReasonOnset Date PxcoqaqzLntszc00/25/2023ReasonCommentsMonitoring/follow-upReasonCommentsRefill ReasonCommentsFallReasonCommentsfollow upHad an accident at work and fell.Reason CommentsNEW PATIENT/TEACHINGReasonCommentsAIHA on MMFReasonOnset DateComments Bhsxuu4002/09/2023ReasonOnset DateCommentsLeft Message To Call Back02/27/2023 ReasonOnset AuleExetrrtqPdrfpp68/30/2023ReasonOnset DateCommentsPrior Hnmgjxoinobdz29/30/2023ReasonOnset CeciPhlmbfemWxazkz68/16/2023ReasonOnset Date LpncrfpeDrzuuh62/06/2023ReasonCommentsNew PatientSpecialtyDiagnoses / Procedures Referred By ContactReferred To ContactRadiology Diagnoses Alcoholic cirrhosis of liver without ascites (HCC) Procedures XA TRANSJUGULAR LIVER BIOPSY (CHRISTIANO) XA INTERVENTIONAL RADIOLOGY PROCEDURE SERVICE Marcello Ibanez MD [address] [place] [address] [facility] ULTRASOUND [address] [place] [address] Referral IDStatusReasonStart DateExpiration DateVisits RequestedVisits [id number]/20/20232/589410YbkrshHeuctbzjloozvjja CT angio abd aorta runoff, r/o PAD, - DVT, normalReasonCommentsANGIO RLE 04/26Pain level 4/10 Care Team (unrecognized sect ion and content) Team MemberRelationshipSpecialtyStart DateEnd Date Theo Burks MD [address] [place] [address] [address] [place] [id number] PCP - GeneralFamily Mrkcftuu77/19/22Team MemberRelationshipSpecialtyStart Date End Date Theo Burks MD [address] [place] [address] [place] [address] PCP - GeneralFamily Xehjrrpx19/19/22Team MemberRelationshipSpecialtyStart Date End Date Theo Burks MD [address] [place] [address] [place] [address] PCP - Generalmily Fjfoyvlw71/19/22Team MemberRelationshipSpecialtyStart Date End Date Theo Burks MD [address] [place] [address] [place] [address] P[facility] - [facility]Mit[facility] Centerly Dkegxzxz38/19/22Team MemberRelationshipSpecialtyStart Date End Date Theo Burks MD [address] [place] [address] [place] [address] PCP - GeneralMit[facility] Centerly Sxpdeenq29/19/22 Abbey Alvarez MD [address] [place] [address] [place] [address] FellowGastroenterology09/13/22 Saskia Madison, TUMBLING MACHINE OPERATOR-GRINDER MILL OPERATOR [address] [place] [address] [place] [address] APNGastroenterolog09/13/22Team MemberRelationshipSpecialtyStart DateEnd Date Theo Burks MD [address] [place] [address] [place] [address] PCP - Generalmily Vuwditth11/19/22 Abbey Alvarez MD [address] [place] [address] [place] [address] FellowGastroenterology09/13/22 Saskia Madison, TUMBLING MACHINE OPERATOR-GRINDER MILL OPERATOR [address] [place] [address] [place] [address] APNGastroenterolog09/13/22Team MemberRelationshipSpecialtyStart DateEnd Date Theo Burks MD [address] [place] [address] [place] [address] PCP - [facility]08/25/22 Abbey Alvarez MD [address] [place] [address] [place] [address] FellowGastroenterology09/13/22 Saskia Madison, TUMBLING MACHINE OPERATOR-GRINDER MILL OPERATOR [address] [place] [address] [place] [address] APNGastroenterology1Team MemberRelationshipSpecialtyStart DateEnd Theo Burks MD [address] [place] [address] [place] [address] PCP - [facility]08/25/22 Abbey Alvarez MD [address] [place] [address] [place] [address] FellowGastroenterology09/13/22 Saskia Madison, TUMBLING MACHINE OPERATOR-GRINDER MILL OPERATOR [address] [place] [address] [place] [address] APNGastroenterology1Team MemberRelationshipSpecialtyStart DateEnd Date Theo uBrks MD [address] [place] [address] [place] [address] PCP - [facility]08/25/22 Abbey Alvarez MD [address] [place] [address] [place] [address] FellowGastroenterology09/13/22 Saskia Madison, TUMBLING MACHINE OPERATOR-GRINDER MILL OPERATOR [address] [place] [address] [place] [address] APNGastroenterology1Team MemberRelationshipSpecialtyStart DateEnd Date Theo Burks MD [address] [place] [address] [place] [address] PCP - [facility]08/25/22 Abbey Alvarez MD [address] [place] [address] [place] [address] FellowGastroenterology09/13/22 Saskia Madison, TUMBLING MACHINE OPERATOR-GRINDER MILL OPERATOR [address] [place] [address] [place] [address] APNGastroenterology1Team MemberRelationshipSpecialtyStart DateEnd Theo uBrks MD [address] [place] [address] [place] [address] PCP - [facility]08/25/22 Abbey Alvarez MD [address] [place] [address] [place] [address] FellowGastroenterology09/13/22 Saskia Madison, TUMBLING MACHINE OPERATOR-GRINDER MILL OPERATOR [address] [place] [address] [place] [address] APNGastroenterology1Team MemberRelationshipSpecialtyStart DateEnd Date Theo Burks MD [address] [place] [address] [place] [address] PCP - [facility]08/25/22 Abbey Alvarez MD [address] [place] [address] [place] [address] FellowGastroenterology09/13/22 Saskia Madison, TUMBLING MACHINE OPERATOR-GRINDER MILL OPERATOR [address] [place] [address] [place] [address] APNGastroenterolog09/13/22Team MemberRelationshipSpecialtyStart DateEnd Theo Burks MD [address] [place] [address] [place] [address] PCP - [facility]08/25/22 Abbey Alvarez MD [address] [place] [address] [place] [address] FellowGastroenterology09/13/22 Saskia Madison, TUMBLING MACHINE OPERATOR-GRINDER MILL OPERATOR [address] [place] [address] [place] [address] APNGastroenterolog09/13/22Team MemberRelationshipSpecialtyStart End Theo Burks MD [address] [place] [address] [place] [address] PCP - [facility]08/25/22 Abbey Alavrez MD [address] [place] [address] [place] [address] FellowGastroenterology09/13/22 Saskia Madison, TUMBLING MACHINE OPERATOR-GRINDER MILL OPERATOR [address] [place] [address] [place] [address] APNGastroenterolog09/13/22 Marcello Ibanez MD [address] [place] [address] FellowGastroenterology11/08/22Team MemberRelationshipSpecialtyStart DateEnd Theo Burks MD [address] [place] [address] [place] [address] PCP - [facility] Xgysdmzs05/19/22 Abbey Alvarez MD [address] [place] [address] [place] [address] FellowGastroenterology09/13/22 Saskia Madison, TUMBLING MACHINE OPERATOR-GRINDER MILL OPERATOR [address] [place] [address] [place] [address] APNGastroenterolog09/13/22 Marcello Ibanez MD [address] [place] [address] FellowGastroenterology11/08/22Team MemberRelationshipSpecialtyStart DateEnd Theo Burks MD [address] [place] [address] [place] [address] PCP - [facility]08/25/22 Abbey Alvarez MD [address] [place] [address] [place] [address] FellowGastroenterology09/13/22 Saskia Madison, TUMBLING MACHINE OPERATOR-GRINDER MILL OPERATOR [address] [place] [address] [place] [address] APNGastroenterolog09/13/22 Marcello Ibanez MD [address] [place] [address] FellowGastroenterology11/08/22Team MemberRelationshipSpecialtyStart DateEnd Date Theo Burks MD [address] [place] [address] [place] [address] PCP - [facility] Xwtqadsn12/19/22 Abbey Alvarez MD [address] [place] [address] [place] [address] FellowGastroenterology09/13/22 Saskia Madison, TUMBLING MACHINE OPERATOR-GRINDER MILL OPERATOR [address] [place] [address] [place] [address] APNGastroenterolog09/13/22 Marcello Ibanez MD [address] [place] [address] FellowGastroenterology11/08/22Team MemberRelationshipSpecialtyStart DateEnd Date Theo Burks MD [address] [place] [address] [place] [address] PCP - [facility] Eytvkobh59/19/22 Abbey Alvarez MD [address] [place] [address] [place] [address] FellowGastroenterology09/13/22 Saskia Madison APRN-GRINDER MILL OPERATOR [address] [place] [address] [place] [address] APNGastroenterolog09/13/22 Marcello Ibanez MD [address] [place] [address] FellowGastroenterology11/08/22Team MemberRelationshipSpecialtyStart DateEnd Date Theo Burks MD [address] [place] [address] [place] [address] PCP - [facility] Fdbeebin64/19/22 Abbey Alvarez MD [address] [place] [address] [place] [address] FellowGastroenterology09/13/22 Saskia Madison, TUMBLING MACHINE OPERATOR-GRINDER MILL OPERATOR [address] [place] [address] [place] [address] APNGastroenterolog09/13/22 Marcello Ibanez MD [address] [place] [address] FellowGastroenterology11/08/22Team MemberRelationshipSpecialtyStart End Theo Burks MD [address] [place] [address] [place] [address] PCP - [facility] Xpxmwwhb40/19/22 Abbey Alvarez MD [address] [place] [address] [place] [address] FellowGastroenterology09/13/22 Saskia Madison, TUMBLING MACHINE OPERATOR-GRINDER MILL OPERATOR [address] [place] [address] [place] [address] APNGastroenterolog09/13/22 Marcello Ibanez MD [address] [place] [address] FellowGastroenterology11/08/22Team MemberRelationshipSpecialtyStart End Theo Burks MD [address] [place] [address] [place] [address] PCP - [facility] Qvzfxoln29/19/22 Abbey Alvarez MD [address] [place] [address] [place] [address] FellowGastroenterology09/13/22 Saskia Madison, TUMBLING MACHINE OPERATOR-GRINDER MILL OPERATOR [address] [place] [address] [place] [address] APNGastroenterolog09/13/22 Marcello Ibanez MD [address] [place] [address] FellowGastroenterology11/08/22Team MemberRelationshipSpecialtyStart DateEnd Date Theo Burks MD [address] [place] [address] [place] [address] PCP - [facility] Gbrwcpew08/19/22 Abbey Alvarez MD [address] [place] [address] [place] [address] FellowGastroenterology09/13/22 Saskia Madison, TUMBLING MACHINE OPERATOR-GRINDER MILL OPERATOR [address] [place] [address] [place] [address] APNGastroenterolog09/13/22 Marcello Ibanez MD [address] [place] [id number] FellowGastroenterology11/08/22Team MemberRelationshipSpecialtyStart End [facility] Theo Burks MD [address] [place] [address] [place] [address] PCP - [facility] [employer] Xoapigfz00/19/22 Abbey Alvarez MD [address] [place] [address] [place] [address] FellowGastroenterology09/13/22 Saskia [place], TUMBLING MACHINE OPERATOR-GRINDER MILL OPERATOR [address] [place] [address] [place] [address] APNGastroenterolog09/13/22 Marcello Ibanez MD [address] [place] [phone] FellowGastroenterology11/08/22Team MemberRelationshipSpecialtyStart End Theo Burks MD [address] [place] [address] [place] [address] PCP - [facility] Thhqhzam46/19/22 Abbey Alvarez MD [address] [place] [address] [address] [place], [place] [id number] FellowGastroenterology09/13/22 Saskia Madison APRN-GRINDER MILL OPERATOR [address] [place] [address] [place] [address] APNGastroenterolog09/13/22 Marcello Ibanez MD [address] [place] [phone] FellowGastroenterology11/08/22Team MemberRelationshipSpecialtyStart DateEnd Theo Burks MD [address] [place] [address] [place] [address] PCP - [facility] Npsvjkrt10/19/22 Abbey Alvarez MD [address] [place] [address] [place] [address] FellowGastroenterology09/13/22 Saskia Madison, TUMBLING MACHINE OPERATOR-GRINDER MILL OPERATOR [address] [place] [address] [place] [address] APNGastroenterolog09/13/22 Marcello Ibanez MD [address] [place] [phone] FellowGastroenterology11/08/22Team MemberRelationshipSpecialtyStart DateEnd Theo Burks MD [address] [place] [address] [place] [address] P[facility] - [facility] Zhiwpode14/19/22 Abbey Alvarez MD [address] [place] [address] [place] [address] FellowGastroenterology09/13/22 Saskia [place], LIBAN-GRINDER MILL OPERATOR [address] [place] [address] [place] [address] APNGastroenterolog09/13/22 Marcello Ibanez MD [address] [place] [phone] FellowGastroenterology11/08/22Team MemberRelationshipSpecialtyStart DateEnd Theo Burks MD [address] [place] [address] [place] [address] PCP - [employer] Ylvonoea84/19/22 Abbey Alvarez MD [address] [place] [address] [place] [address] FellowGastroenterology09/13/22 Saskia Madison, TUMBLING MACHINE OPERATOR-GRINDER MILL OPERATOR [address] [place] [address] [place] [address] APNGastroenterolog09/13/22 Marcello Ibanez MD [address] [place] [address] [phone] FellowGastroenterology11/08/22Team MemberRelationshipSpecialtyStart DateEnd Theo Burks MD [address] [place] [address] [address] [place], [place] [id number] PCP - GeneralFamily Ddcxpzls42/19/22 Abbey Alvarez MD [address] [place] [address] [address] [place], [place] [phone] FellowGastroenterology09/13/22 Saskia Madison APRN-GRINDER MILL OPERATOR [address] [place] [address] [place] [address] APNGastroenterolog09/13/22 Marcello Ibanez MD [address] [place] [address] [phone] FellowGastroenterology11/08/22Team MemberRelationshipSpecialtyStart End Theo Burks MD [address] [place] [address] [place], [place] [id number] PCP - GeneralFamily Ctxiidqx89/19/22 Abbey Alvarez MD [address] [place] [address] [address] [place], [place] [phone] FellowGastroenterology09/13/22 Saskia Madison, TUMBLING MACHINE OPERATOR-GRINDER MILL OPERATOR [address] [place] [address] [place] [address] APNGastroenterolog09/13/22 Marcello Ibanez MD [address] [place] [address] [phone] FellowGastroenterology11/08/22Team MemberRelationshipSpecialtyStart DateEnd Theo Burks MD [address] [place] [address] [address] [place], [place] [id number] PCP - GeneralFamily Aiftqisb44/19/22 Abbey Alvarez MD [address] [place] [address] [place] [address] FellowGastroenterology09/13/22 Saskia Madison APRN-GRINDER MILL OPERATOR [address] [place] [address] [place] [address] APNGastroenterolog09/13/22 Marcello Ibanez MD [address] [place] [phone] FellowGastroenterology11/08/22Team MemberRelationshipSpecialtyStart DateEnd Date Theo Burks MD [address] [place] [address] [place] [address] PCP - [facility] Zmdjodzg93/19/22 Abbey Alvarez MD [address] [place] [address] [place] [address] FellowGastroenterology09/13/22 Saskia Madison, TUMBLING MACHINE OPERATOR-GRINDER MILL OPERATOR [address] [place] [address] [place] [address] APNGastroenterolog09/13/22 Marcello Ibanez MD [address] [place] [phone] FellowGastroenterology11/08/22Team MemberRelationshipSpecialtyStart DateEnd Date Josiane Mccullough MD [address] [place] [address] [address] TRAVIS[address] C [address] [address] PCP - GeneralFamily Wzunywql07/11/13 Josiaen Mccullough MD [address] [facility] [address] [place] [address] 07/18/13Team MemberRelationshipSpecialtyStart DateEnd Date Theo Burks MD [address] [facility] [place] [address] PCP - GeneralFamily Bwghcfmn46/19/22 Abbey Alvarez MD [address] [facility] [place] [address] FellowGastroenterology09/13/22 Saskia Madison APRN-GRINDER MILL OPERATOR [address] [facility] [place] [address] APNGastroenterolog09/13/22 Marcello Ibanez MD [address] [place] [address] FellowGastroenterology11/08/22Team MemberRelationshipSpecialtyStart DateEnd Date Loreta Cummings TUMBLING MACHINE OPERATOR-GRINDER MILL OPERATOR [address] [facility] [address] [place] [address] PCP - GeneralEmergency Medicine04/21/24Team MemberRelationshipSpecialtyStart Date End Date Loreta Cummings TUMBLING MACHINE OPERATOR-GRINDER MILL OPERATOR [address] [facility] [address] [place] [address] PCP - GeneralEmergency Medicine04/21/24Team MemberRelationshipSpecialtyStart Date End Date Cristina Chung MD [address] [place] [address] PCP - [facility]01/13/25 Evelio Carr DO [address] [place] [address] Referring [facility]01/13/25Team MemberRelationshipSpecialtyStart Date End Date Cristina Chung MD [address] [place] [phone] PCP - [facility]01/13/25 Evelio Carr DO [address] [place] [address] Referring [facility]01/13/25Te MemberRelationshipSpecialtyStart Date End Date Josiane Mccullough MD [address] [place] [phone] PCP - [facility]07/18/13 Josiane Mccullough MD [address] [address] 07/18/13 Loreta Cummings, GRINDER MILL OPERATOR [address] [facility] [place] [phone] Nurse Practitioner12/31/23 Vic Ramos, RN [address] [place] [phone] Referring7/7/25 Source Comments (unrecognize d section and content) In the event this informatio n is protected by the Federal Confidentiality of Alcohol and Drug Abuse Patient Records regulations: The Federal rules restrict any use of the information to criminally investigate or prosecute any alcohol or drug abuse patient.[facility] HospitalIn the event this information is protected by the Federal Confidentiality of Alcohol and Drug Abuse Patient Records regulations: The Federal rules restrict any use of the information to criminally investigate or prosecute any alcohol or drug abuse patient.[facility] (unrecognized sect ion and content) No [...] Healthcare DATE CREATED AUTHOR AUTHOR'S ORGANIZ ATION 02/21/2024 [facility] DATE CREATED AUTHOR AUTHOR'S ORGANIZ ATION 03/04/2024 [facility] DATE CREATED AUTHOR AUTHOR'S ORGANIZ ATION 03/05/2024 [facility] DATE CREATED AUTHOR AUTHOR'S ORGANIZ ATION 03/11/2024 [facility] DATE CREATED AUTHOR AUTHOR'S ORGANIZ ATION 04/11/2024 [facility] DATE CREATED AUTHOR AUTHOR'S ORGANIZ ATION 04/27/2024 [facility] DATE CREATED AUTHOR AUTHOR'S ORGANIZ ATION 05/07/2024 [facility] DATE CREATED AUTHOR AUTHOR'S ORGANIZ ATION 05/26/2024 [facility] DATE CREATED AUTHOR AUTHOR'S ORGANIZ ATION 05/27/2024 [facility] DATE CREATED AUTHOR AUTHOR'S ORGANIZ ATION 05/28/2024 [facility] DATE CREATED AUTHOR AUTHOR'S ORGANIZ ATION 06/01/2024 [facility] DATE CREATED AUTHOR AUTHOR'S ORGANIZ ATION 07/11/2024 [facility] DATE CREATED AUTHOR AUTHOR'S ORGANIZ ATION 07/13/2024 [facility] DATE CREATED AUTHOR AUTHOR'S ORGANIZ ATION 07/17/2024 [facility] DATE CREATED AUTHOR AUTHOR'S ORGANIZ ATION 08/20/2024 [facility] DATE CREATED AUTHOR AUTHOR'S ORGANIZ ATION 09/21/2024 [facility] DATE CREATED AUTHOR AUTHOR'S ORGANIZ ATION 09/24/2024 [facility] DATE CREATED AUTHOR AUTHOR'S ORGANIZ ATION 10/03/2024 [facility] DATE CREATED AUTHOR AUTHOR'S ORGANIZ ATION 11/13/2024 [facility] DATE CREATED AUTHOR AUTHOR'S ORGANIZ ATION 11/22/2024 [facility] DATE CREATED AUTHOR AUTHOR'S ORGANIZ ATION 12/12/2024 [facility] DATE CREATED AUTHOR AUTHOR'S ORGANIZ ATION 12/20/2024 [facility] DATE CREATED AUTHOR AUTHOR'S ORGANIZ ATION 01/25/2025 [facility] DATE CREATED AUTHOR AUTHOR'S ORGANIZ ATION 04/09/2025 [facility] DATE CREATED AUTHOR AUTHOR'S ORGANIZ ATION 05/21/2025 [facility] DATE CREATED AUTHOR AUTHOR'S ORGANIZ ATION 05/28/2025 [facility] FOR RECORDS PERTAINING TO PATIENTS WHO ARE [...] BE BASED ON THE PRIMARY CLINICAL RECORDS. [facility] [employer] provides no warranty or guarantee of the accuracy or completeness of information in this document.
[2025-07-24 07:44] VITALS: BP 156/76; PULSE 61; O2SAT 97
--- NOTE | 2025-07-24 08:56 | PC.NURSE ---
pt called out stating he needed assistance. this RN went to room, and pt still needed IV out. it was removed at this time and dressing placed. pt already has d/c instructions in hand.
== END 2025-07-24 09:05 | disposition home or self-care (01) ==
PROVIDERS: Emergency Provider Emergency Medicine
DX: G62.9 Polyneuropathy, unspecified (principal); M79.604 Pain in right leg; R10.9 Unspecified abdominal pain; G89.29 Other chronic pain; K70.30 Alcoholic cirrhosis of liver without ascites; Z87.891 Personal history of nicotine dependence
CPT/HCPCS: 36415; 80048; 80076; 82150; 83690; 85025; 93971; 99284